=== PATIENT | female | born 1965 | race Hispanic/Latino ===

== ENCOUNTER 2018-08-30 06:26 | Day surgery (SDC) | payer OTHER ==
--- NOTE | 2018-08-26 10:26 | RAD REPORT ---
EXAM DESCRIPTION: Lion Bella (2 Views)08/26/2018 10:11 am CLINICAL HISTORY: Preop for hand surgery COMPARISON: January 2018 FINDINGS: The lungs appear clear of acute infiltrate. Area of scarring is present within the left l marifer base. The heart is normal size IMPRESSION: No acute abnormalities displayed
[2018-08-26 10:43] LABS: Absolute Lymphocytes (CBC) 3.2 K/uL (0.7-4.9); Absolute Monocytes 0.7 K/uL (0.1-1.3); Eosinophils % 1.4 % (0-4.4); Hematocrit 48.2 % (36.0-45.0); MCH 31.7 pg (27.0-35.0); MCV 94.6 fL (80-100); MPV 9.2 fL (7.6-11.3); Monocytes % 7.3 % (3.3-12.3); RBC Red Blood Cell Count 5.09 M/uL (3.86-4.86)
[2018-08-26 10:51] LABS: BUN Blood Urea Nitrogen 10 mg/dL (7-18); Bicarbonate 32 mmol/L (21-32); Glucose Level 94 mg/dL (74-106); Potassium 3.8 mmol/L (3.5-5.1); Sodium Level 141 mmol/L (136-145)
[2018-08-26 11:07] LABS: Urine Appearance CLEAR; Urine Bilirubin NEGATIVE (NEG); Urine Blood NEGATIVE (NEG); Urine Color YELLOW; Urine Glucose NEGATIVE (NEG); Urine Protein 1+ (NEG); Urine Urobilinogen 0.2 mg/dL (0.2-1.0); Urine pH 5.5 (5.0-7.0)
[2018-08-26 11:19] LABS: Urine Microscopic Reflex ORDER UMIC
[2018-08-26 11:20] LABS: Urine Bacteria <20 /HPF (<20); Urine RBC <5 /HPF (NONE SEEN)
[2018-08-26 11:21] LABS: Urine Culture Reflex Order NOT NEEDED
--- NOTE | 2018-08-26 13:46 | EKG ---
Test Date: 2018-08-26 Test Time: 10:05:17 Time Checker: DWAIN MEASUREMENT RESULTS: Intervals: Rate: 68 MD: 166 QRSD: 78 QT: 428 QTc: 455 [place]: P: 23 MD: 166 QRS: 12 T: 23 INTERPRETIVE STATEMENTS: Normal sinus rhythm Normal ECG Compared to ECG 09/21/2017 15:02:08 No significant changes Electronically Signed On 08-26-18 13:45:15 CDT by Jin Mendenhall
[~2018-08-30 06:26] MED LIST: Ringers Lactate 1,000 ML IV ONE
--- OUTSIDE RECORDS SUMMARY | 2018-08-30 06:31 | XMS REPORT | Continuity of Care Document ---
:1965 Author Organization Interface Problems Problem Status Onset Classification Date Comments Source Date Reported LOW BACK PAIN Active 03/30/20 [place] [id number] [place] REFLUX-K21.9 Active 10/18/20 [place] Acid reflux Active Problem 04/07/2018 [facility] [place] Anxiety Active Problem 04/07/2018 [facility] [place] Back ache Active Problem 04/07/2018 [facility] [place] Chest Resolved Problem 04/07/2018 on and off, Ortho pain<sup>1</sup> heart test and are Spine, negative, [place] pt says c/p was due to high dose of norvac, but now on lower dose and no futher c/p; exercise by walking, no stairs Cough<sup>2</sup> Resolved Problem 04/07/2018 2 weeks [facility] ago,, and cough, cold Spine,[facility] , flu; [facility] better now Diabetes Active Problem 04/07/2018 [facility] Ear infection Resolved Problem 04/07/2018 [facility] [place] Gout Active Problem 04/07/2018 [facility] [place] Hyperlipidemia Active Problem 04/07/2018 [facility] Hypertension Active Problem 04/07/2018 [facility] [place] Insomnia Active Problem 04/07/2018 [facility] [place] Irregular heart Resolved Problem 04/07/2018 [facility] beat and [facility]ine,[facility] [place] Leg weakness Active Problem 04/07/2018 [facility] [place] Morbid obesity Active Problem 04/07/2018 [facility] Muscle ache Resolved Problem 04/07/2018 [facility] [place] Osteoarthritis Active Problem 04/07/2018 [facility] 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/2018 Ortho neuropathy and Spine Sleep apnea Active Problem 04/07/2018 [facility] [place] SOB (<span Resolved Problem 04/07/2018 with stairs Ortho ID="[id number]" and >Confirmed</span> Spine, )<sup>3, 4</sup> [facility] Cholesterol Active Problem 11/11/2015 [facility] GASTRO-ESOPHAGEAL Active [facility] REFLUX DISEASE [place] WITHOUT Medications Medication Details Route Status Patient Ordering Order Source Instructions Provider Date Lactated Ringers IV 1,000 mL, No Ortho 1,000 mL Rate: 40 Longer 018 and ml/hr, Active Spine Infuse over: 25 hr, Route: IV, Dosing Weight 141.364 kg, Total Volume: 1,000, Start date: 04/04/18 14:14:00 CDT, Duration: 30 day, Stop date: 05/04/18 14:13:00 CDT, 2.56, m2 Humulin 70/30 60 unit, Active Ortho SUB-Q, 018 and QPM, 0 Spine Refill(s) Humulin 70/30 70 unit, Active Ortho SUB-Q, 018 and QAM, 0 Spine Refill(s) Alprazolam 2 MG Oral 2 mg=1 Active [facility] Tablet [Xanax] tab, PO, 016 [place] TID, 0 Refill(s) Nitroglycerin 0.4 MG 0.4 mg=1 Active [facility] Sublingual Tablet tab, SL, 016 [place] [Nitrostat] Q5Min, PRN Chest Pain, # 100 tab, 0 Refill(s) Promethazine VC with 5 mL, PO, Active [place] Codeine PRN, 0 016 [place] Refill(s) Acetaminophen 325 MG / 1 tab, Active [facility] Hydrocodone Bitartrate PO, BID, 016 [place] 10 MG Oral Tablet 0 [[place] 10/325] Refill(s) tizanidine 4 MG Oral 4 mg=1 Active [facility] Capsule [Zanaflex] cap, PO, 016 [place] BID, # 90 cap, 0 Refill(s) Zolpidem tartrate 5 MG 5 mg=1 Active [facility] Oral Tablet [Ambien] tab, PO, 016 [place] Bedtime, 0 Refill(s) cephalexin 500 mg oral 500 mg=1 Active [place] capsule cap, PO, 016 [place] BID, 0 Refill(s) duloxetine 60 MG 60 mg=1 Active [facility] Enteric Coated Capsule cap, PO, 016 [place] [Cymbalta] Daily, 0 Refill(s) atorvastatin 40 MG 40 mg=1 Active [place] Oral Tablet [Lipitor] tab, PO, 016 [place] Bedtime, 0 Refill(s) promethazine 25 mg 25 mg=1 Active [place] oral tablet tab, PO, 016 [place] PRN, 0 Refill(s) sucralfate 1 g oral 1 gm=1 Active [place] tablet tab, PO, 016 [place] QID-Befor e Meals, 0 Refill(s) Colchicine 0.6 MG Oral 0.6 mg=1 Active [facility] Tablet [Colcrys] tab, PO, 016 [place] PRN, 0 Refill(s) allopurinol 300 mg 300 mg=1 Active [place] oral tablet tab, PO, 016 [place] Daily, 0 Refill(s) Unknown Home Refill(s) Active [place] Medication 0 016 [place] pantoprazole 40 MG 40 mg=1 Active [place] Enteric Coated Tablet tab, PO, 016 [place] [Protonix] Daily, 0 Refill(s) Hydralazine 50 mg=1 Active [place] Hydrochloride 50 MG tab, PO, 016 [place] Oral Tablet TID, 0 Refill(s) lisinopril 10 mg oral 10 mg=1 Active [place] tablet tab, PO, 016 [place] BID, 0 Refill(s) Amlodipine 10 MG Oral 10 mg=1 Active [place] Tablet [Norvasc] tab, PO, 016 [place] Daily, 0 Refill(s) Hydrochlorothiazide 25 mg, Active [place] PO, 016 [place] Daily, 0 Refill(s) metoprolol tartrate 100 mg=1 Active [place] 100 mg oral tablet tab, PO, 016 [place] BID, 0 Refill(s) Allergies, Adverse Reactions, Alerts Substance Category Reaction Severity Reaction Status Date Comments Source type Reported doxycycline Assertion n/v Drug Active [facility] Reglan Assertion n/v Drug Active [facility] Immunizations Immunization Date Given Site Status Last Updated Comments Source Results Order Results Value Reference Date Interpretation Comments Source Name Range Abdomen/P Abdomen/P CT SCAN OF THE ABDOMEN AND PELVIS WITH CONTRAST: - [facility] cuco w cuco - [place] IV IV contrast contrast CT CT DISCUSSION: The study is a preoperative exam for gastric bypass surgery. Read by: Genaro Amin MD Dictated Date/time: 10/24/15 14:35 Electronically Signed by: Genaro Amin MD 10/24/15 14:49 FINAL REPORT Streak artifact which is a consequence of the patient's body touching the CT gantry somewhat limits evaluation. No older studies available for comparison. CT SCAN OF THE ABDOMEN: Axial images through the abdomen are obtained during IV and following oral contrast administration. Previous cholecystectomy. The liver is mildly enlarged and of diffusely diminished attenuation. 4.4 cm lobulated cyst arising from the upper pole of left kidney. 1.5 cm irregular area of fatty attenuati on in the uncinate process of the pancreatic head most consistent with focal fatty replacement or lipoma. No abnormalities identified in the spleen, biliary system, right kidney, or adrenal glands. No adenopathy or abnormal fluid collections. Minimal aortic and visceral arterial calcifications. Several surgical clips in the zepeda of the gastric fundus. Stomach is incompletely distended and otherwi se suboptimally evaluated. Diverticula scattered throughout the colon. No significant findings in the visualized lung parenchyma. Degenerative changes in the spine. CT SCAN OF THE PELVIS: Axial images through the pelvis are obtained following oral and IV contrast. No adenopathy or abnormal fluid collections. Iliac artery calcifications. Surgical clips along the medial aspect of the cecum are likely related to previous appendectomy. 2 cm left ovarian cyst. Diverti cula scattered in the descending and sigmoid colon. No bladder or obvious uterine abnormalities. Degenerative changes in the lumbosacral spine. Possible bilateral L5 spondylolysis. IMPRESSION: 1. Status post cholecystectomy. 2. Mild hepatomegaly with associated diffuse fatty infiltration. 3. Colonic diverticulosis. 4. Arterial vascular calcifications. Please correlate with risk factors. SL: 14 Vital Signs Vital Sign Value Date Comments Source Systolic (mm Hg) 118 04/04/2018 [facility] Diastolic (mm Hg) 73 04/04/2018 [facility] Respitory Rate 16 04/04/2018 [facility] Systolic (mm Hg) 108 04/04/2018 [facility] Diastolic (mm Hg) 86 04/04/2018 [facility] Respitory Rate 16 04/04/2018 [facility] Systolic (mm Hg) 135 04/04/2018 [facility] Diastolic (mm Hg) 79 04/04/2018 [facility] Respitory Rate 19 04/04/2018 [facility] Weight 141.364 04/04/2018 [facility] BMI Calculated 55.21 04/04/2018 [facility] Height 160.02 cm 03/30/2018 [facility] Respitory Rate 16 03/21/2018 [facility] Systolic (mm Hg) 107 03/21/2018 [facility] Diastolic (mm Hg) 67 03/21/2018 [facility] Respitory Rate 18 03/21/2018 [facility] Systolic (mm Hg) 133 03/21/2018 [facility] Diastolic (mm Hg) 74 03/21/2018 [facility] Systolic (mm Hg) 118 03/21/2018 [facility] Diastolic (mm Hg) 74 03/21/2018 [facility] Respitory Rate 16 03/21/2018 [facility] Height 160.02 cm 2018 [facility] Weight 138.182 2018 [facility] BMI Calculated 53.96 2018 [facility] Weight 144.682 11/07/2015 [facility] BMI Calculated 56.5 11/07/2015 [facility] Height 160.02 cm 11/07/2015 [facility] Encounters Location Location Encounter Encounter Reason Attending ADM DC Status Source Details Type Number For Provider Date Date Visit [facility] Outpt Diag [id number] Sheilendra 10/24 10/25 [facility] [place] [facility] Bedded [id number] Sheilendra 11/08 11/08 [facility] [place] [facility] [place] [facility] [id number] Kimberly Ng 03/21 03/22 [facility] [place] [facility] [id number] IMANI HOLLEY 03/30 [facility] [id number] Kimberly Ng 04/04 04/05 [facility] [place] [facility] Outpatient [id number] IMANI HOLLEY 04/26 Active [facility] [place] Outpatient [id number] [facility] 07/26 Active [facility] [place] Procedures Procedure Code Date Perfomer Comments Source Sleeve resection of [id number] 09/01/2017 Ortho stomach and Spine Laparoscopic [id number] 11/01/2013 removed lap [place] adjustable gastric band, due to [place] banding<sup>1</sup> n/v; Removal of gastric [id number] 11/01/2013 Ortho band and Spine Abdominal [id number] 11/01/2011 Ortho hysterectomy and Spine Abdominal [id number] 11/01/2010 [place] hysterectomy [place] Laparoscopic [id number] 11/01/2010 [place] adjustable gastric [place] banding Laparoscopic [id number] 11/01/2010 Ortho adjustable gastric and Spine banding Appendectomy [id number] 11/01/2009 [facility] Cholecystectomy [id number] 11/01/2009 [facility] Knee joint operation [id number] 11/01/2006 [facility] Shoulder joint [id number] 11/01/2006 Ortho operations and Spine Appendectomy [id number] 11/01/2006 [place] Cholecystectomy [id number] 11/01/2006 [place] Knee joint operation [id number] 11/01/2006 [place] Shoulder joint [id number] 11/01/2006 [place] section [id number] 11/01/1984 [facility] section [id number] 11/01/1984 [facility]
[2018-08-30] MEDS ORDERED: NA CHLORIDE 0.9% 1,000 ML ONE (06:47)
[2018-08-30] MEDS ORDERED: CEFAZOLIN/SWI 1gm 1 GM/10 ML SYR ONE (06:47)
[2018-08-30] MEDS ORDERED: MIDAZOLAM HCL 2 MG/2 ML INJ ONE (07:18)
[2018-08-30] MEDS ORDERED: FENTANYL CITR 100 MCG/2 ML ONE (07:18)
[2018-08-30] MEDS ORDERED: PROPOFOL 200 MG/20 ML VIAL IV ONE (07:18)
[2018-08-30] MEDS ORDERED: LIDOCAINE 1% MPF 5 ML VIAL ONE (07:19)
[2018-08-30] MEDS ORDERED: KETOROLAC 30 MG/ML INJ ONE (08:00)
[2018-08-30] MEDS: BUPIVACAINE 0.25% PF 10 ML VIAL ONE ×2 (08:03→08:17)
[2018-08-30] MEDS: DEPO-MEDROL 40 MG/ML IM ONE ×2 (08:03→08:17)
[2018-08-30] MEDS ORDERED: ONDANSETRON HCL 40 MG/20 ML VIAL ONE (08:09)
--- NOTE | 2018-08-30 08:34 | P.BOP ---
Preoperative diagnosis: RIGHT CARPAL TUNNEL SYNDROME with CONSTANT NUMBNESS Postoperative diagnosis: SAME Primary procedure: RIGHT WRIST CARPAL TUNNEL RELEASE Wharf Operator: Carlos Jhaveri Estimated blood loss: < 5mL Specimen: NONE Findings: HYPERTROPHIC SYNOVITIS Anesthesia: General Complications: None Fluids & blood products: INJ 0.25%MARCAINE PLAIN 3 mL; 40 mg DEPO-MEDROL 1 mL Transferred to: Recovery Room Condition: Good
[2018-08-30] MEDS: MEPERIDINE HCL 50 MG/ML AMP ONE ×2 (08:44→08:50)
[2018-08-30] MEDS ORDERED: HYDROCODONE/APAP 5/325 MG TAB ONE (09:31)
[2018-08-30 09:43] VITALS: TEMP 97.1; O2SAT 93
[2018-08-30 10:36] VITALS: BP 115/72
--- NOTE | 2018-08-30 18:39 | OP ---
Date of Procedure: 08/30/2018 Surgeon: Carlos Jhaveri MD Pcu Rn: Dr. Carlos Jhaveri. Preoperative Diagnoses: Right carpal tunnel syndrome with constant numbness and paresthesias. Postoperative Diagnoses: Right carpal tunnel syndrome with constant numbness and paresthesias. Primary Procedure: Right wrist carpal tunnel release. Indications: This 53-year-old female has had persistent paresthesias developed in the right median n erve distribution. She has elected to proceed with carpal tunnel release after discussion of risks a nd benefits with all questions answered. Procedure In Detail: The patient was taken to the operating room and given a general anesthesia. e was placed with the right upper extremity on the armboard in a supine position. The time-out was c alled, all pertinent facts were discussed and agreed upon. It was agreed upon to proceed with the pl anned operative procedure. The tourniquet in place on the proximal right upper extremity close to th e axilla was inflated to 250 mmHg after exsanguination with an Esmarch bandage. The incision marking was made and the incision was made alongside the thenar crease just ulnar to it to the flexion creas e of the wrist were it was angled in a slightly ulnar direction. The incision was carried sharply th rough skin and subcutaneous tissue. The carpal ligament was exposed. The carpal ligament was divide d longitudinally in a 0.5 cm length at its mid portion. A hemostat was passed underneath the carpal ligament and a 15-blade was used to cut down on the hemostat to its distal margin. The hemostat was reversed to go toward the proximal margin of the carpal ligament, and the ligament was divided with t he 15-blade, cutting down onto the hemostat. This allowed freedom from compression for the carpal co ntents. No masses could be palpated. There were no cysts. The hypertrophic synovial tissue was mil d to moderate. The incision was then irrigated. Hemostat was used with Bovie coagulation to coagula te small bleeders. Estimated blood loss for this procedure was less than 5 mL, actually virtually no ne. The 1 mL of Depo-Medrol plain 40 mg was instilled into the proximal aspect of the wrist incision . The closure was affected with 3 interrupted sutures that can function as stay sutures if necessary and a running horizontal mattress stitch. The closure was covered with Xeroform gauze and 4x4 gauze . A dorsal fiberglass splint was applied after soft roll was used to wrap and control the bandage. The Abhinav wrap was used around the splint. The patient tolerated this procedure well and was taken to the recovery room in good condition. Three milliliters of 0.25% Marcaine plain were injected around the incision margins prior to bandage application. JUSTYNA/LAUREL Voice ID: [id number] Report ID: [id number]
== END 2018-08-30 10:11 | disposition home or self-care (01) ==
LOC: OR 06:26
PROVIDERS: ATTEND Orthopaedic Surgery
PROC: 01N50ZZ Release Median Nerve, Open Approach (ICD-10-PCS; principal; 2018-08-30 07:30)
DX: G56.01 Carpal tunnel syndrome, right upper limb (principal); M06.9 Rheumatoid arthritis, unspecified; E11.9 Type 2 diabetes mellitus without complications; I10 Essential (primary) hypertension; G47.33 Obstructive sleep apnea (adult) (pediatric); E66.01 Morbid (severe) obesity due to excess calories; Z68.43 Body mass index [BMI] 50.0-59.9, adult; Z87.891 Personal history of nicotine dependence; Z83.3 Family history of diabetes mellitus; Z82.49 Family history of ischemic heart disease and other diseases of the circulatory system
CPT/HCPCS: 36415; 64721; 71046; 80048; 82962 ×2; 83036; 85025; 93005; J0690; J1030; J2175; J2405; J3010; J7030; 81003; 81015; J2250; J2704

== ENCOUNTER 2018-11-06 08:16 | Emergency (ER) | payer OTHER ==
--- OUTSIDE RECORDS SUMMARY | 2018-11-06 08:19 | XMS REPORT | Continuity of Care Document ---
:1965 Author Organization Interface Problems Problem Status Onset Classification Date Comments Source Date Reported LOW BACK PAIN Active 03/30/20 [place] [id number] [place] REFLUX-K21.9 Active 10/18/20 [place] Acid reflux Active Problem 04/07/2018 [facility] [place] Anxiety Active Problem 04/07/2018 [facility] [place] Back ache Active Problem 04/07/2018 [facility] [place] Chest Resolved Problem 04/07/2018 on and off, Ortho pain<sup>1</sup> heart test and are Spine, negative, [place] pt says c/p was due to high dose of norvac, but now on lower dose and no futher c/p; exercise by walking, no stairs Cough<sup>2</sup> Resolved Problem 04/07/2018 2 weeks [facility] ago,, and cough, cold Spine,[facility] , flu; [place] better now Diabetes Active Problem 04/07/2018 [facility] Ear infection Resolved Problem 04/07/2018 [facility] [place] Gout Active Problem 04/07/2018 [facility] [place] Hyperlipidemia Active Problem 04/07/2018 [facility] Hypertension Active Problem 04/07/2018 [facility] [place] Insomnia Active Problem 04/07/2018 [facility] [place] Irregular heart Resolved Problem 04/07/2018 [facility] beat [facility] Spine,[facility] [place] Leg weakness Active Problem 04/07/2018 [facility] [place] Morbid obesity Active Problem 04/07/2018 [facility] Muscle ache Resolved Problem 04/07/2018 [facility] [place] Osteoarthritis Active Problem 04/07/2018 [facility] 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/2018 Ortho neuropathy and Spine Sleep apnea Active Problem 04/07/2018 [facility] [place] SOB (<span Resolved Problem 04/07/2018 with stairs Ortho ID="[id number]" and >Confirmed</span> Spine, )<sup>3, 4</sup> [place] Cholesterol Active Problem 11/11/2015 [place] GASTRO-ESOPHAGEAL Active [place] REFLUX DISEASE [place] WITHOUT [...] 016 [place] 10 MG Oral Tablet 0 [[place] 10/325] Refill(s) tizanidine 4 MG Oral 4 [...] CONTRAST: - [facility] cuco w cuco - [place] IV IV contrast contrast CT CT DISCUSSION: [...] 2018 [facility] Weight 144.682 11/07/2015 [place] BMI Calculated 56.5 11/07/2015 [place] Height 160.02 cm 11/07/2015 [place] Encounters Location Location Encounter Encounter Reason Attending ADM DC Status Source Details Type Number For Provider Date Date Visit [facility] Outpt Diag [id number] Sheilendra 10/24 10/25 [facility] [place] [facility] Bedded [id number] Sheilendra 11/08 11/08 [facility] [place] [facility] [place] [facility] [id number] Kimberly Ng 03/21 03/22 [facility] [place] [facility] [id number] IMANI HOLLEY 03/[address] [facility] Surgery [id number] Kimberly Ng 04/04 04/05 [facility] [place] [facility] Outpatient [id number] IMANI HOLLEY 04/26 Active [facility] [place] Outpatient [id number] [facility] 07/26 Active [facility] [place] Procedures Procedure Code Date Perfomer Comments Source Sleeve resection of [id number] 09/01/2017 Ortho stomach and Spine Laparoscopic [id number] 11/01/2013 removed lap [place] adjustable gastric band, due to [place] banding<sup>1</sup> n/v; Removal of gastric [id number] 11/01/2013 Ortho band and Spine Abdominal [id number] 11/01/2011 Ortho hysterectomy and Spine Abdominal [id number] 11/01/2010 [place] hysterectomy [place] Laparoscopic [id number] 11/01/2010 [place] adjustable gastric [place] banding Laparoscopic [id number] 11/01/2010 Ortho adjustable gastric and Spine banding Appendectomy [id number] 11/01/2009 [facility] Cholecystectomy [id number] 11/01/2009 [facility] Knee joint operation [id number] 11/01/2006 [facility] Shoulder joint [id number] 11/01/2006 Orth[facility] operations and Spine Appendectomy [id number] 11/01/2006 [place] Cholecystectomy [id number] 11/01/2006 [place] Knee joint operation [id number] 11/01/2006 [place] Shoulder joint [id number] 11/01/2006 [place] section [id number] 11/01/1984 [place] section [id number] 11/01/1984 [facility]
--- OUTSIDE RECORDS SUMMARY | 2018-11-06 08:20 | XMS REPORT ---
:1965 Author Organization [facility] Address [address] [place] [address] Care Team Providers Name Role Phone Unavailable Unavailable Unavailable Problems This patient has no known problems. Allergies, Adverse Reactions, Alerts This patient has no known allergies or adverse reactions. Medications This patient has no known medications.
--- NOTE | 2018-11-06 09:13 | RAD REPORT ---
EXAM DESCRIPTION: RAD - Lumbar Spine 3 Views - 11/06/2018 8:53 am CLINICAL HISTORY: PAIN Radiculopathy COMPARISON: Lumbar Spine 3 Views dated 02/15/2018; LSPINE WITH BENDING VIEWS dated 02/14/2014 FINDINGS: Vertebral body heights appear maintained. No compression fracture noted. Disc thinning is present at L3-4 and L4-5 with small endplate osteophyte. Cholecystectomy clips. IMPRESSION: No acute lumbar spine finding.
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
[2018-11-06 09:40] VITALS: TEMP 98.2
[2018-11-06 09:41] VITALS: BP 132/68; O2SAT 96
== END 2018-11-06 09:36 | disposition home or self-care (01) ==
LOC: ER 08:16
DX: M54.5 Low back pain (principal); V49.40XA Driver injured in collision with unspecified motor vehicles in traffic accident, initial encounter; E11.9 Type 2 diabetes mellitus without complications; J45.909 Unspecified asthma, uncomplicated; I10 Essential (primary) hypertension; Z79.84 Long term (current) use of oral hypoglycemic drugs; Z79.899 Other long term (current) drug therapy
CPT/HCPCS: 72100; 99283

== ENCOUNTER 2019-04-27 12:35 | Emergency (ER) | payer OTHER ==
--- OUTSIDE RECORDS SUMMARY | 2019-04-27 12:39 | XMS REPORT ---
:1965 [facility] Address [address] [place] [address] Care Team Providers Name Role Phone Unavailable Unavailable Unavailable Problems This patient has no known problems. Allergies, Adverse Reactions, Alerts This patient has no known allergies or adverse reactions. Medications This patient has no known medications.
--- OUTSIDE RECORDS SUMMARY | 2019-04-27 12:39 | XMS REPORT | Continuity of Care Document ---
:1965 Author Organization [facility] [facility] Care Team Providers Name Role Phone [facility] Unavailable Unavailable Problems Problem Status Onset Classification Date Comments Source Date Reported LOW BACK PAIN Active 03/30/20 [facility] 18 [place] [id number] Active 10/18/20 [place] Acid reflux Active Problem 04/07/2018 [facility] [place] Anxiety Active Problem 04/07/2018 [facility] [place] Back ache Active Problem 04/07/2018 [facility] [place] Chest pain1 Resolved Problem 04/07/2018 on and off, Orth[facility] heart test and are [facility] negative, [place] pt says c/p was due to high dose of norvac, but now on lower dose and no futher c/p; exercise by walking, no stairs Cough2 Resolved Problem 04/07/2018 2 weeks [facility] ago,, and cough, cold [facility] , flu; [place] better now Diabetes Active Problem 04/07/2018 [facility] Ear infection Resolved Problem 04/07/2018 [facility] [place] Gout Active Problem 04/07/2018 [facility] [place] Hyperlipidemia Active Problem 04/07/2018 [facility] Hypertension Active Problem 04/07/2018 [facility] [place] Insomnia Active Problem 04/07/2018 [facility] [place] Irregular heart Resolved Problem 04/07/2018 [facility] beat [facility] [place] Leg weakness Active Problem 04/07/2018 [facility] [place] Morbid obesity Active Problem 04/07/2018 [facility] Muscle ache Resolved Problem 04/07/2018 [facility] [place] Osteoarthritis Active Problem 04/07/2018 [facility] 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/2018 [facility] neuropathy and Spine Sleep apnea Active Problem 04/07/2018 [facility] [place] SOB (Confirmed)3, Resolved Problem 04/07/2018 pt says she wakes up sob [facility] 4 with stairs and [facility] [place] Cholesterol Active Problem 11/11/2015 [place] GASTRO-ESOPHAGEAL Active [place] REFLUX DISEASE [place] WITHOUT [...] 016 [place] 10 MG Oral Tablet 0 [[place] 10/325] Refill(s) tizanidine 4 MG Oral 4 [...] Active [facility] Immunizations No Data Provided for This Section Results No Data Provided for This Section Pathology Reports No Data Provided for This Section Diagnostic Reports Report Value Date Source Abdomen/Pelvis w IV CT SCAN OF THE ABDOMEN AND PELVIS WITH CONTRAST: [address] [address] DISCUSSION: The study is a preoperative exam for gastric bypass surgery. Streak artifact which is a consequence of [...] Please correlate with risk factors. SL: 14 Consultation Notes No Data Provided for This Section Discharge Summaries No Data Provided for This Section History and Physicals No Data Provided for This Section Vital Signs Vital Sign Value Date Comments [...] 2018 [facility] Weight 144.682 11/07/2015 [place] BMI Calculated 56.5 11/07/2015 [place] Height 160.02 cm 11/07/2015 [place] Encounters Location Location Encounter Encounter Reason Attending ADM DC Status Source Details Type Number For Provider Date Date Visit [facility] Outpt Diag [id number] Sheilendra 10/24 10/25 [facility] Bedded [id number] Sheilendra 11/08 11/08 [place] [facility] [place] [facility] Surgery [id number] Kimberly Ng 03/21 03/22 [facility] Outpatient [id number] IMANI HOLLEY 03/30 [facility] [id number] Kimberly Ng 04/04 04/05 [facility] [place] [facility] Out[facility] [id number] IMANI HOLLEY 04/26 [facility] [place] [facility] [id number] IMANI HOLLEY 07/26 [facility] [place] [facility] [id number] IMANI HOLLEY 12/09 Active [facility] [place] Procedures Procedure Code Date Perfomer Comments Source Sleeve resection of [id number] 09/01/2017 [facility] Laparoscopic [id number] 11/01/2013 removed lap [place] adjustable gastric band, due to [place] banding<sup>1</sup> n/v; Removal of gastric [id number] 11/01/2013 [facility] band [facility] Sp[facility] Abdominal [id number] 11/01/2011 [facility] hysterectomy [facility] Sp[facility] Abdominal [id number] 11/01/2010 [facility] hysterectomy [place] Laparoscopic [id number] 11/01/2010 [facility] [place] adjustable gastric [place] banding Laparoscopic [id number] 11/01/2010 [facility] adjustable gastric and Spine banding Appendectomy [id number] 11/01/2009 [facility] Cholecystectomy [id number] 11/01/2009 [facility] Knee joint operation [id number] 11/01/2006 [facility] Shoulder joint [id number] 11/01/2006 [facility] Spine Appendectomy [id number] 11/01/2006 [facility] [place] Cholecystectomy [id number] 11/01/2006 [facility] [place] Knee joint operation [id number] 11/01/2006 [facility] [place] Shoulder joint [id number] 11/01/2006 [facility] [place] section [id number] 11/01/1984 [facility] [place] section [id number] 11/01/1984 [facility] Assessment and Plan No Data Provided for This Section Plan of Care No Data Provided for This Section Social History Social History Date Source Social History TypeResponse 11/07/2015 [facility] Substance Abuse Use: None. Exercise Exercise type: Walking. Employment/School Status: disabled. Alcohol Never, Previous treatment: None. Smoking Status Former smoker; Type: Cigarettes; Exposure to Tobacco Smoke None; Cigarette Smoking Last 365 Days No; Reg Smoking Cessation Counseling No1 entered on: 04/04/18 11/2 pack a day for 5 years, quit 10 years ago Social History TypeResponse 11/07/2015 [place] Substance Abuse Use: None. Exercise Exercise type: Walking. Employment/School 1 Alcohol Never, Previous treatment: None. Smoking Status Former smoker; Type: Cigarettes; Exposure to Tobacco Smoke None; Cigarette Smoking Last 365 Days No; Reg Smoking Cessation Counseling No2 1not /2 pack a day for 5 years, quit 10 years ago No data available for this 10/25/2015 [facility] [place] section Family History No Data Provided for This Section Advance Directives No Data Provided for This Section Functional Status No Data Provided for This Section
--- NOTE | 2019-04-27 13:26 | RAD REPORT ---
EXAM DESCRIPTION: RAD - Chest Single View - 04/27/2019 1:19 pm CLINICAL HISTORY: Cough, shortness of breath COMPARISON: August 2018 TECHNIQUE: AP portable chest image was obtained 1316 hours . FINDINGS: Large body habitus limits detail on portable imaging. No focal lung parenchymal process se en. No significant failure or volume overload. Stranding in the left lung base is believed to be normal for this patient accentuated by portable gladis hnique and body habitus. Heart and vasculature are normal. No measurable pleural effusion and no pneu mothorax. No acute bony abnormality seen. No acute aortic findings suspected. IMPRESSION: No acute cardiopulmonary process. No significant interval change.
[2019-04-27 13:30] LABS: Absolute Lymphocytes (CBC) 2.3 K/uL (0.7-4.9); Basophils % 0.6 % (0-1.3); Eosinophils % 0.8 % (0-4.4); Hematocrit 49.8 % (36.0-45.0); Lymphocytes % 26.8 % (15.3-44.8); MPV 9.8 fL (7.6-11.3); Monocytes % 7.7 % (3.3-12.3); RBC Red Blood Cell Count 5.32 M/uL (3.86-4.86)
[2019-04-27 13:49] LABS: BUN Blood Urea Nitrogen 15 mg/dL (7-18); Bicarbonate 32 mmol/L (21-32); Glucose Level 97 mg/dL (74-106); Potassium 3.6 mmol/L (3.5-5.1); Sodium Level 139 mmol/L (136-145); Troponin (Emerg Dept Use Only) < 0.02 ng/mL (0.0-0.045)
--- NOTE | 2019-04-27 14:47 | ER ---
Nurse's Notes [facility] Name: Maria De Jesus Acosta Age: 54 yrs Sex: Female : 1965 Arrival Date: 04/27/2019 Time: 12:38 Bed 16 Private MD: Diagnosis: Acute pharyngitis Presentation: 04/27 12:42 Presenting complaint: Patient states: states MD changed her insulin last Wednesday. Pt was wh still using old syringe from previous insulin which is bigger than the new syringe she was supposed to be using. Pt complaining of weakness, nausea and loss appetite since Wednesday. EMS on scene checked BS [id number]. Pt was eating cookies on way to hospital. Transition of care: patient was not received from another setting of care. Onset of symptoms was April 24, 2019. Risk Assessment: Do you want to hurt yourself or someone else? Patient reports no desire to harm self or others. Initial Sepsis Screen: Does the patient meet any 2 criteria? RR > 20 per min. HR > 90 bpm. No. Patient's initial sepsis screen is negative. Does the patient have a suspected source of infection? No. Patient's initial sepsis screen is negative. Care prior to arrival: Medication(s) given: Breathing treatment. 12:42 Method Of Arrival: EMS: [facility] 12:42 Acuity: EMERALD 3 Triage Assessment: 12:47 General: Appears in no apparent distress. General: Behavior is calm, cooperative, wh appropriate for age. Pain: Denies pain. 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/A - Historical: - Allergies: 14:09 Doxycycline; 14:09 metoclopramide HCl; 14:09 orange juice; - Home Meds: 14:09 metoprolol tartrate 100 mg Oral tab 1 tab 2 times per day [Active]; alprazolam 2 mg wh oral tab 3 times per day [Active]; lisinopril 40 mg oral tab twice a day [Active]; atorvastatin 40 mg Oral tab 1 tab once daily [Active]; amlodipine 10 mg tab 1 tab once daily [Active]; hydralazine 100 mg oral tab [Active]; furosemide 20 mg Oral tab 1 tab once daily [Active]; metformin 1,000 mg oral tab 2 times per day [Active]; Hydrochlorothiazide Oral once daily [Active]; gabapentin 600 mg oral tab 1 tab 3 times per day [Active]; Norvasc Oral once daily [Active]; Zoloft 25 mg Oral tab 1 tab once daily [Active]; Ambien 10 mg oral tab [Active]; [place] 5-325 mg Oral tab 1 tab every 12 hours [Active]; Insulin: Novolin R Sub-Q [Active]; - PMHx: 14:09 Asthma; Diabetes - NIDDM; Hypertension; COPD; CHF; wh - Immunization history:: Adult Immunizations up to date. - Ebola Screening: : Patient negative for fever greater than or equal to 101.5 degrees Fahrenheit, and additional compatible Ebola Virus Disease symptoms Patient denies exposure to infectious person. - Social history:: Smoking status: Patient/guardian denies using tobacco. Screenin:46 Abuse screen: Denies threats or abuse. Denies injuries from another. Nutritional wh screening: No deficits noted. Tuberculosis screening: No symptoms or risk factors identified. Fall Risk None identified. Assessment: 13:34 General: Appears in no apparent distress. Behavior is calm, cooperative, appropriate wh for age. Pain: Denies pain. Neuro: Level of Consciousness is awake, alert, obeys commands, Oriented to person, place, time, situation, Station Repairer are equal bilaterally. Cardiovascular: Heart tones S1 S2 Capillary refill < 3 seconds. Respiratory: Airway is patent Respiratory effort is even, unlabored, Respiratory pattern is regular, symmetrical. GI: Abdomen is round non-distended, Abd is soft and non tender. : No signs and/or symptoms were reported regarding the genitourinary system. EENT: No signs and/or symptoms were reported regarding the EENT system. Derm: Skin is intact, is healthy with good turgor, Skin is pink, warm \T\ dry. normal. Musculoskeletal: Range of motion: intact in all extremities. Vital Signs: 12:39 BP 125 / 94; Pulse 100; Resp 23; Temp 98.7; Pulse Ox 95% on R/A; aj 13:35 BP 113 / 71; Pulse 89; Resp 18; Pulse Ox 94% on 2 lpm NC; wh 14:35 BP 129 / 79; Pulse 86; Resp 18; Pulse Ox 94% on R/A; wh ED Course: 12:38 Patient arrived in ED. iw 12:42 Billy Ahn is Primary Nurse. 12:43 Mason Joe MD is Attending Physician. 12:44 EKG done, by certified performance technologist. reviewed by Mason Joe MD. 3 12:46 Triage completed. 12:47 Arm band placed on right wrist. 12:47 Patient has correct armband on for positive identification. Bed in low position. Call light in reach. Side rails up X 1. monitor worker on. Pulse ox on. NIBP on. 13:18 X-ray completed. Portable x-ray completed in exam room. Patient tolerated procedure well. 13:24 XRAY Chest (1 view) In Process Unspecified. EDUT 15:22 No provider procedures requiring assistance completed. IV discontinued, intact, bleeding controlled, No redness/swelling at site. Administered Medications: No medications were administered Point of Care Testing: Blood Glucose: 12:48 Blood Glucose: 99 mg/dL; Ranges: Outcome: 14:46 Discharge ordered by MD. 15:22 Discharged to home ambulatory. 15:22 Condition: good 15:22 Discharge instructions given to patient, family, Instructed on discharge instructions, follow up and referral plans. POC Bronchitis Demonstrated understanding of instructions, follow-up care, medications, POC hypoglycemia 15:24 Patient left the ED. Signatures: Dispatcher [employer] Pham Banegas RN RN aj Williams, Irene, RN RN iw Warren, Shannon Billy Ahn Mason Joe MD MD Kelly Das 3 Corrections: (The following items were deleted from the chart) 13:44 12:42 Initial Sepsis Screen: Does the patient meet any 2 criteria? No. Patient's initial sepsis screen is negative. Does the patient have a suspected source of infection? No. Patient's initial sepsis screen is negative.
--- NOTE | 2019-04-27 14:47 | EDPHYS ---
Physician Documentation [facility] Name: Maria De Jesus Acosta Age: 54 yrs Sex: Female : 1965 Arrival Date: 04/27/2019 Time: 12:38 Bed 16 Private MD: ED Physician Mason Joe HPI: 04/27 14:41 This 54 yrs old Female presents to ER via EMS with unknown complaint. gs 14:41 The patient presents with sore throat. Onset: The symptoms/episode began/occurred 3 gs day(s) ago. Severity of symptoms: At their worst the symptoms were moderate, in the emergency department the symptoms are unchanged. Modifying factors: The symptoms are alleviated by nothing, the symptoms are aggravated by swallowing, Patient's oral intake status: good. Associated signs and symptoms: Pertinent positives: flu-like symptoms, malaise. The patient has experienced similar episodes in the past, a few times. had issue with insulin syringe change no overdose no hypoglycemia. 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 [facility] N/A - Historical: - Allergies: 14:09 Doxycycline; 14:09 metoclopramide HCl; 14:09 orange juice; - Home Meds: 14:09 metoprolol tartrate 100 mg Oral tab 1 tab 2 times per day [Active]; alprazolam 2 mg wh oral tab 3 times per day [Active]; lisinopril 40 mg oral tab twice a day [Active]; atorvastatin 40 mg Oral tab 1 tab once daily [Active]; amlodipine 10 mg tab 1 tab once daily [Active]; hydralazine 100 mg oral tab [Active]; furosemide 20 mg Oral tab 1 tab once daily [Active]; metformin 1,000 mg oral tab 2 times per day [Active]; Hydrochlorothiazide Oral once daily [Active]; gabapentin 600 mg oral tab 1 tab 3 times per day [Active]; Norvasc Oral once daily [Active]; Zoloft 25 mg Oral tab 1 tab once daily [Active]; Ambien 10 mg oral tab [Active]; [place] 5-325 mg Oral tab 1 tab every 12 hours [Active]; Insulin: Novolin R Sub-Q [Active]; - PMHx: 14:09 Asthma; Diabetes - NIDDM; Hypertension; COPD; CHF; wh - Immunization history:: Adult Immunizations up to date. - Ebola Screening: : Patient negative for fever greater than or equal to 101.5 degrees Fahrenheit, and additional compatible Ebola Virus Disease symptoms Patient denies exposure to infectious person. - Social history:: Smoking status: Patient/guardian denies using tobacco. ROS: 14:41 All other systems are negative. gs Exam: 14:41 Head/Face: Normocephalic, atraumatic. Eyes: Pupils equal round and reactive to light, gs extra-ocular motions intact. Lids and lashes normal. Conjunctiva and sclera are non-icteric and not injected. Cornea within normal limits. Periorbital areas with no swelling, redness, or edema. Neck: Trachea midline, no thyromegaly or masses palpated, and no cervical lymphadenopathy. Supple, full range of motion without nuchal rigidity, or vertebral point tenderness. No Meningismus. Chest/axilla: Normal chest wall appearance and motion. Nontender with no deformity. No lesions are appreciated. Cardiovascular: Regular rate and rhythm with a normal S1 and S2. No gallops, murmurs, or rubs. Normal PMI, no JVD. No pulse deficits. Respiratory: Lungs have equal breath sounds bilaterally, clear to auscultation and percussion. No rales, rhonchi or wheezes noted. No increased work of breathing, no retractions or nasal flaring. Abdomen/GI: Soft, non-tender, with normal bowel sounds. No distension or tympany. No guarding or rebound. No evidence of tenderness throughout. Back: No spinal tenderness. No costovertebral tenderness. Full range of motion. Skin: Warm, dry with normal turgor. Normal color with no rashes, no lesions, and no evidence of cellulitis. MS/ Extremity: Pulses equal, no cyanosis. Neurovascular intact. Full, normal range of motion. Neuro: Awake and alert, GCS 15, oriented to person, place, time, and situation. Cranial nerves II-XII grossly intact. Motor strength 5/5 in all extremities. Sensory grossly intact. Cerebellar exam normal. Normal gait. 14:41 Constitutional: The patient appears alert, awake. 14:41 ENT: Posterior pharynx: erythema, that is moderate. Vital Signs: 12:39 BP 125 / 94; Pulse 100; Resp 23; Temp 98.7; Pulse Ox 95% on R/A; aj 13:35 BP 113 / 71; Pulse 89; Resp 18; Pulse Ox 94% on 2 lpm NC; wh 14:35 BP 129 / 79; Pulse 86; Resp 18; Pulse Ox 94% on R/A; MDM: 12:55 Patient medically screened. 14:41 Differential diagnosis: gastroesophageal reflux disease, group A strep tonsillitis, gs viral syndrome. Data reviewed: vital signs, nurses notes. Counseling: I had a detailed discussion with the patient and/or guardian regarding: the historical points, exam findings, and any diagnostic results supporting the discharge/admit diagnosis, lab results, the need for outpatient follow up. Response to treatment: the patient's symptoms have markedly improved after treatment. 14:47 Data reviewed: lab test result(s), EKG, radiologic studies. 04/27 13:03 Order name: Basic Metabolic Panel; Complete Time: 14:34 04/27 13:03 Order name: CBC with Diff; Complete Time: 13:47 04/27 13:03 Order name: Troponin (emerg Dept Use Only); Complete Time: 14:34 04/27 13:03 Order name: XRAY Chest (1 view); Complete Time: 13:47 04/27 13:03 Order name: Strep; Complete Time: 14:34 04/27 13:58 Order name: Throat Culture [facility] 04/27 13:03 Order name: EKG; Complete Time: 13:04 04/27 13:03 Order name: Cardiac monitoring; Complete Time: 13:19 04/27 13:03 Order name: EKG - Nurse/Tech; Complete Time: 13:19 04/27 13:03 Order name: IV Saline Lock; Complete Time: 13:19 04/27 13:03 Order name: Labs collected and sent; Complete Time: 13:19 04/27 13:03 Order name: O2 Per Protocol; Complete Time: 13:19 04/27 13:03 Order name: O2 Sat Monitoring; Complete Time: 13:19 Administered Medications: No medications were administered Point of Care Testing: Blood Glucose: 12:48 Blood Glucose: 99 mg/dL; Ranges: Critical Glucose Levels:Adult <50 mg/dl or >400 mg/dl <40 mg/dl or >180 mg/dl Disposition: 04/27/19 14:46 Discharged to Home. Impression: Acute pharyngitis. - Condition is Stable. - Discharge Instructions: Pharyngitis, [id number]. - Medication Reconciliation Form, Thank You Letter, Antibiotic Education, Prescription Opioid Use form. - Follow up: Private Physician; When: 2 - 3 days; Reason: Re-evaluation by your physician. Signatures: Dispatcher [employer] EDNH Billy Ahn Gregory, MD MD gs Corrections: (The following items were deleted from the chart) 15:24 14:46 04/27/2019 14:46 Discharged to Home. Impression: Acute pharyngitis. Condition is wh Stable. Forms are Medication Reconciliation Form, Thank You Letter, Antibiotic Education, Prescription Opioid Use. Follow up: Private Physician; When: 2 - 3 days; Reason: Re-evaluation by your physician. gs
[2019-04-27 15:39] VITALS: TEMP 98.7
[2019-04-27 15:40] VITALS: O2SAT 94
[2019-04-27 15:42] VITALS: BP 129/79
--- NOTE | 2019-04-27 16:02 | EKG ---
Test Date: 2019-04-27 Test Time: 12:40:20 Audio Visual Director: DELORES MEASUREMENT RESULTS: Intervals: Rate: 98 MI: 160 QRSD: 84 QT: 354 QTc: 451 Pierce: P: 55 MI: 160 QRS: 29 T: 77 INTERPRETIVE STATEMENTS: Normal sinus rhythm Cannot rule out Anterior infarct, age undetermined Abnormal ECG Compared to ECG 08/26/2018 10:05:17 Myocardial infarct finding now present Electronically Signed On 04-27-19 16:01:36 CDT by Jin Mendenhall
== END 2019-04-27 15:24 | disposition home or self-care (01) ==
LOC: ER 12:35
DX: J02.9 Acute pharyngitis, unspecified (principal); J45.909 Unspecified asthma, uncomplicated; E11.9 Type 2 diabetes mellitus without complications; I11.0 Hypertensive heart disease with heart failure; I50.9 Heart failure, unspecified; J44.9 Chronic obstructive pulmonary disease, unspecified; Z88.1 Allergy status to other antibiotic agents; Z88.8 Allergy status to other drugs, medicaments and biological substances; Z91.018 Allergy to other foods; Z79.4 Long term (current) use of insulin
CPT/HCPCS: 36415; 71045; 80048; 82962; 84484; 85025; 87070; 87081; 93005; 99284

== ENCOUNTER 2019-08-15 11:49 | Emergency (ER) | payer OTHER ==
[2019-08-15] MEDS ORDERED: HYDRALAZINE HCL 20 MG/ML VIAL ONE (12:49)
[2019-08-15] MEDS ORDERED: cloNIDine HCl 0.1 MG TAB ONE (12:49)
[2019-08-15] MEDS ORDERED: KETOROLAC 30 MG/ML INJ ONE (12:50)
--- NOTE | 2019-08-15 14:09 | ER ---
Nurse's Notes [facility] Name: Maria De Jesus Acosta Age: 54 yrs Sex: Female : 1965 Arrival Date: 08/15/2019 Time: 11:53 Bed 19 Private MD: Diagnosis: HYPERTENSIVE CRISIS;Acute pharyngitis, unspecified Presentation: 08/15 11:55 Presenting complaint: Patient states: i have been having something like the flu for 5 tw2 weeks, i went to my PCP 2 weeks ago, he put me on the blue pill for the flu and it didn't help, my throat hurts, i can hardly swallow, and coughing and my throat hurts so bad i cant take my pills, my dr said he was booked and to come to the ER. Transition of care: patient was not received from another setting of care. Onset of symptoms was August 15, 2019. Risk Assessment: Do you want to hurt yourself or someone else? Patient reports no desire to harm self or others. Initial Sepsis Screen: Does the patient meet any 2 criteria? No. Patient's initial sepsis screen is negative. Does the patient have a suspected source of infection? No. Patient's initial sepsis screen is negative. Care prior to arrival: None. 11:55 Method Of Arrival: Ambulatory tw2 11:55 Acuity: EMERALD 2 tw2 11:56 Note "i havent been able to take any of my medicines". tw2 Triage Assessment: 11:59 General: Appears in no apparent distress. obese, Behavior is calm, cooperative, tw2 appropriate for age. Pain: Complains of pain in uvula, left aspect of posterior pharynx and right aspect of posterior pharynx. EENT: Reports nasal congestion nasal discharge pain when swallowing. 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 - Hysterectomy tw2 Historical: - Allergies: 11:59 Doxycycline; tw2 11:59 metoclopramide HCl; tw2 11:59 orange juice; tw2 - Home Meds: 11:59 gabapentin 600 mg Oral tab 1 tab 3 times per day [Active]; Zoloft 25 mg Oral tab 1 tab tw2 once daily [Active]; furosemide 20 mg Oral tab 1 tab once daily [Active]; amlodipine 10 mg tab 1 tab once daily [Active]; Ambien 10 mg Oral tab [Active]; hydralazine 100 mg Oral tab [Active]; Hydrochlorothiazide Oral once daily [Active]; atorvastatin 40 mg Oral tab 1 tab once daily [Active]; lisinopril 40 mg Oral tab twice a day [Active]; alprazolam 2 mg Oral tab 3 times per day [Active]; Insulin: Novolin R Sub-Q [Active]; metformin 1,000 mg Oral tab 2 times per day [Active]; metoprolol tartrate 100 mg Oral tab 1 tab 2 times per day [Active]; [employer] 5-325 mg Oral tab 1 tab every 12 hours [Active]; Norvasc Oral once daily [Active]; - PMHx: 11:59 Asthma; Diabetes - NIDDM; Hypertension; COPD; CHF; tw2 - PSHx: 11:59 Cholecystectomy; Appendectomy; partial hysterectomy; tw2 - Immunization history:: Adult Immunizations. - Social history:: Smoking status: . - Ebola Screening: : Patient denies travel to an Ebola-affected area in the 21 days before illness onset. Screenin:55 Fall Risk None identified. tw2 12:19 Abuse screen: Denies threats or abuse. Denies injuries from another. Nutritional aj1 screening: No deficits noted. Tuberculosis screening: No symptoms or risk factors identified. 14:15 Fall Risk None identified. aj1 Assessment: 12:19 General: Appears in no apparent distress. uncomfortable, Behavior is calm, cooperative, aj1 appropriate for age. Pain: Complains of pain in right aspect of posterior pharynx and left aspect of posterior pharynx Pain does not radiate. Pain currently is 8 out of 10 on a pain scale. Neuro: Level of Consciousness is awake, alert, obeys commands, Oriented to person, place, time, situation, Speech is normal, Facial symmetry appears normal. Cardiovascular: Heart tones S1 S2 present Patient's skin is warm and dry. Respiratory: Reports cough that is persistent Airway is patent Respiratory effort is even, unlabored, Respiratory pattern is regular, symmetrical, Breath sounds are clear bilaterally. GI: No signs and/or symptoms were reported involving the gastrointestinal system. : No signs and/or symptoms were reported regarding the genitourinary system. EENT: Throat is reddened bilaterally Reports sore throat. Derm: No signs and/or symptoms reported regarding the dermatologic system. Skin is pink, warm \\T\\ dry. normal. Musculoskeletal: No signs and/or symptoms reported regarding the musculoskeletal system. Circulation, motion, and sensation intact. 13:28 Reassessment: Patient appears in no apparent distress at this time. No changes from aj1 previously documented assessment. Patient and/or family updated on plan of care and expected duration. Pain level reassessed. Patient is alert, oriented x 3, equal unlabored respirations, skin warm/dry/pink. 14:14 Reassessment: Patient appears in no apparent distress at this time. No changes from aj1 previously documented assessment. Patient and/or family updated on plan of care and expected duration. Pain level reassessed. Patient is alert, oriented x 3, equal unlabored respirations, skin warm/dry/pink. Vital Signs: 11:57 BP 180 / 105; Pulse 99; Resp 18; Temp 98.1(O); Pulse Ox 97% on R/A; Weight 147.42 kg tw2 (R); Height 5 ft. 3 in. (160.02 cm); Pain 6/10; 13:31 BP 177 / 91; Pulse 82; Resp 18; Pulse Ox 97% on R/A; aj1 14:14 BP 134 / 68; Pulse 81; Resp 18; Pulse Ox 97% on R/A; aj1 11:57 Body Mass Index 57.57 (147.42 kg, 160.02 cm) tw2 ED Course: 11:53 Patient arrived in ED. as 11:57 Triage completed. tw2 11:57 Arm band placed on. tw2 12:00 Strep Sent. tw2 12:00 Flu Sent. tw2 12:05 Waleska Carpio, RN is Primary Nurse. aj1 12:15 Stew Preciado MD is Attending Physician. tw4 12:19 Patient has correct armband on for positive identification. Bed in low position. Call aj1 light in reach. Side rails up X 1. 12:19 No provider procedures requiring assistance completed. aj1 14:14 Patient did not have IV access during this emergency room visit. aj1 Administered Medications: 12:56 Drug: hydrALAZINE 20 mg Route: IM; Site: right deltoid; aj1 12:57 Drug: TORadol 60 mg Route: IM; Site: left deltoid; aj1 12:57 Drug: cloNIDine 0.2 mg Route: PO; aj1 Outcome: 14:08 Discharge ordered by . tw4 14:15 Discharged to home ambulatory. aj1 14:15 Condition: good 14:15 Discharge instructions given to patient, Instructed on discharge instructions, follow up and referral plans. medication usage, Demonstrated understanding of instructions, follow-up care, medications, Prescriptions given X 1. 14:15 Patient left the ED. aj1 Signatures: Waleska Carpio RN RN aj1 Zohreh Pugh Tara, RN RN tw2 Stew Preciado MD MD tw4 Corrections: (The following items were deleted from the chart) 12:02 11:55 Acuity: EMERALD 3 tw2 tw2
--- NOTE | 2019-08-15 14:09 | EDPHYS ---
Physician Documentation [facility] Name: Maria De Jesus Acosta Age: 54 yrs Sex: Female : 1965 Arrival Date: 08/15/2019 Time: 11:53 Bed 19 Private MD: ED Physician Stew Preciado HPI: 08/15 19:54 This 54 yrs old Female presents to ER via Ambulatory with complaints of Sore tw4 Throat, Cough. 19:54 The patient presents with sore throat. The patient describes throat pain as raw, tw4 scratchy. Onset: The symptoms/episode began/occurred today. Severity of symptoms: At their worst the symptoms were moderate, in the emergency department the symptoms are unchanged. Modifying factors: The symptoms are alleviated by nothing, the symptoms are aggravated by nothing. The patient has not experienced similar symptoms in the past. 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 - Hysterectomy tw2 Historical: - Allergies: 11:59 Doxycycline; tw2 11:59 metoclopramide HCl; tw2 11:59 orange juice; tw2 - Home Meds: 11:59 gabapentin 600 mg Oral tab 1 tab 3 times per day [Active]; Zoloft 25 mg Oral tab 1 tab tw2 once daily [Active]; furosemide 20 mg Oral tab 1 tab once daily [Active]; amlodipine 10 mg tab 1 tab once daily [Active]; Ambien 10 mg Oral tab [Active]; hydralazine 100 mg Oral tab [Active]; Hydrochlorothiazide Oral once daily [Active]; atorvastatin 40 mg Oral tab 1 tab once daily [Active]; lisinopril 40 mg Oral tab twice a day [Active]; alprazolam 2 mg Oral tab 3 times per day [Active]; Insulin: Novolin R Sub-Q [Active]; metformin 1,000 mg Oral tab 2 times per day [Active]; metoprolol tartrate 100 mg Oral tab 1 tab 2 times per day [Active]; [place] 5-325 mg Oral tab 1 tab every 12 hours [Active]; Norvasc Oral once daily [Active]; - PMHx: 11:59 Asthma; Diabetes - NIDDM; Hypertension; COPD; CHF; tw2 - PSHx: 11:59 Cholecystectomy; Appendectomy; partial hysterectomy; tw2 - Immunization history:: Adult Immunizations. - Social history:: Smoking status: . - Ebola Screening: : Patient denies travel to an Ebola-affected area in the 21 days before illness onset. ROS: 19:54 Constitutional: Negative for fever, chills, and weight loss, Eyes: Negative for injury, tw4 pain, redness, and discharge, Cardiovascular: Negative for chest pain, palpitations, and edema, Respiratory: Negative for shortness of breath, cough, wheezing, and pleuritic chest pain, Abdomen/GI: Negative for abdominal pain, nausea, vomiting, diarrhea, and constipation. 19:54 MS/Extremity: Negative for injury and deformity, Skin: Negative for injury, rash, and discoloration, Neuro: Negative for headache, weakness, numbness, tingling, and seizure. 19:54 ENT: Positive for difficulty handling secretions, difficulty swallowing, sore throat. Exam: 19:54 Constitutional: This is a well developed, well nourished patient who is awake, alert, tw4 and in no acute distress. Head/Face: Normocephalic, atraumatic. 19:54 Cardiovascular: Regular rate and rhythm with a normal S1 and S2. No gallops, murmurs, or rubs. Normal PMI, no JVD. No pulse deficits. Respiratory: Lungs have equal breath sounds bilaterally, clear to auscultation and percussion. No rales, rhonchi or wheezes noted. No increased work of breathing, no retractions or nasal flaring. Abdomen/GI: Soft, non-tender, with normal bowel sounds. No distension or tympany. No guarding or rebound. No evidence of tenderness throughout. Back: No spinal tenderness. No costovertebral tenderness. Full range of motion. MS/ Extremity: Pulses equal, no cyanosis. Neurovascular intact. Full, normal range of motion. Neuro: Awake and alert, GCS 15, oriented to person, place, time, and situation. Cranial nerves II-XII grossly intact. Motor strength 5/5 in all extremities. Sensory grossly intact. Cerebellar exam normal. Normal gait. 19:54 ENT: External ear(s): are unremarkable, Ear canal(s): are normal, Mouth: Posterior pharynx: erythema, that is moderate. Vital Signs: 11:57 BP 180 / 105; Pulse 99; Resp 18; Temp 98.1(O); Pulse Ox 97% on R/A; Weight 147.42 kg tw2 (R); Height 5 ft. 3 in. (160.02 cm); Pain 6/10; 13:31 BP 177 / 91; Pulse 82; Resp 18; Pulse Ox 97% on R/A; aj1 14:14 BP 134 / 68; Pulse 81; Resp 18; Pulse Ox 97% on R/A; aj1 11:57 Body Mass Index 57.57 (147.42 kg, 160.02 cm) tw2 MDM: 12:15 Patient medically screened. tw4 19:54 Data reviewed: vital signs, nurses notes. Data interpreted: Pulse oximetry: tw4 Interpretation: normal. Counseling: I had a detailed discussion with the patient and/or guardian regarding: the historical points, exam findings, and any diagnostic results supporting the discharge/admit diagnosis. Medication response: HYDRALAZINE. Special discussion: I discussed with the patient/guardian in detail that at this point there is no indication for admission to the hospital. It is understood, however, that if the symptoms persist or worsen the patient needs to return immediately for re-evaluation. 08/15 12:00 Order name: Flu tw2 08/15 12:00 Order name: Strep; Complete Time: 12:38 tw2 08/15 12:34 Order name: Throat Culture EDMS Administered Medications: 12:56 Drug: hydrALAZINE 20 mg Route: IM; Site: right deltoid; aj1 12:57 Drug: TORadol 60 mg Route: IM; Site: left deltoid; aj1 12:57 Drug: cloNIDine 0.2 mg Route: PO; aj1 Disposition: 08/15/19 14:08 Discharged to Home. Impression: HYPERTENSIVE CRISIS, Acute pharyngitis, unspecified. - Condition is Stable. - Discharge Instructions: Hypertension, Pharyngitis, Sore Throat, Pharyngitis, [id number], Upper Respiratory Infection, Pediatric, Ixdo-ra-Ojcz, Viral Respiratory Infection, Kago-Ih-Wktc. - Prescriptions for Ibuprofen 600 mg Oral Tablet - take 1 tablet by ORAL route every 6 hours As needed take with food; 30 tablet. - Medication Reconciliation Form, Thank You Letter, Antibiotic Education, Prescription Opioid Use form. - Follow up: Private Physician; When: Upon discharge from the Emergency Department; Reason: If symptoms return, Recheck today's complaints, Continuance of care. - Problem is new. - Symptoms have improved. Signatures: Dispatcher [employer] EDWaleska Mott RN RN aj1 Cecilia Kessler RN RN tw2 Stew Preciado MD MD tw4 Corrections: (The following items were deleted from the chart) 14:09 14:08 08/15/2019 14:08 Discharged to Home. Impression: HYPERTENSIVE CRISIS. Condition tw4 is Stable. Forms are Medication Reconciliation Form, Thank You Letter, Antibiotic Education, Prescription Opioid Use. Follow up: Private Physician; When: Upon discharge from the Emergency Department; Reason: If symptoms return, Recheck today's complaints, Continuance of care. Problem is new. Symptoms have improved. tw4 14:15 14:09 08/15/2019 14:08 Discharged to Home. Impression: HYPERTENSIVE CRISIS; Acute aj1 pharyngitis, unspecified. Condition is Stable. Forms are Medication Reconciliation Form, Thank You Letter, Antibiotic Education, Prescription Opioid Use. Follow up: Private Physician; When: Upon discharge from the Emergency Department; Reason: If symptoms return, Recheck today's complaints, Continuance of care. Problem is new. Symptoms have improved. tw4
[2019-08-15 14:45] VITALS: TEMP 98.1; O2SAT 97
[2019-08-15 14:47] VITALS: BP 134/68
== END 2019-08-15 14:15 | disposition home or self-care (01) ==
LOC: ER 11:49
DX: I16.9 Hypertensive crisis, unspecified (principal); E11.9 Type 2 diabetes mellitus without complications; J44.9 Chronic obstructive pulmonary disease, unspecified; I50.9 Heart failure, unspecified; I10 Essential (primary) hypertension; J45.909 Unspecified asthma, uncomplicated; Z79.4 Long term (current) use of insulin; Z88.1 Allergy status to other antibiotic agents; Z91.018 Allergy to other foods
CPT/HCPCS: 87070; 87081; 87804 ×2; J0360; 96372; 99283

== ENCOUNTER 2019-10-03 14:23 | Observation (INO) | payer OTHER ==
--- OUTSIDE RECORDS SUMMARY | 2019-10-03 14:26 | XMS REPORT ---
:1965 Author Organization [facility] Address [address] [place] [address] Care Team Providers Name Role Phone Unavailable Unavailable Unavailable Problems This patient has no known problems. Allergies, Adverse Reactions, Alerts This patient has no known allergies or adverse reactions. Medications This patient has no known medications.
[2019-10-03] MEDS ORDERED: METOPROLOL TAR 50 MG TAB ONE (16:03)
[2019-10-03] MEDS ORDERED: MORPHINE 2 MG/ML SYR ONE (16:03)
[2019-10-03] MEDS ORDERED: ASPIRIN 81 MG CHEWABLE TABLET ONE (16:04)
[2019-10-03] MEDS ORDERED: ENOXAPARIN 100 MG/ML SYR SQ ONE (16:04)
[2019-10-03] MEDS ORDERED: FAMOTIDINE 20 MG/2 ML VIAL IV ONE (16:04)
[2019-10-03] MEDS ORDERED: ONDANSETRON 4 MG/2 ML VIAL ONE (16:04)
[2019-10-03 16:35] LABS: Absolute Lymphocytes (CBC) 1.9 K/uL (0.7-4.9); Basophils % 0.6 % (0-1.3); Hematocrit 47.2 % (36.0-45.0); MPV 10.6 fL (7.6-11.3); RBC Red Blood Cell Count 5.04 M/uL (3.86-4.86)
[2019-10-03 16:39] LABS: ALT/SGPT 195 U/L (12-78); AST/SGOT 183 U/L (15-37); Albumin 3.3 g/dL (3.4-5.0); Alkaline Phosphatase 161 U/L (45-117); BUN Blood Urea Nitrogen 11 mg/dL (7-18); Bicarbonate 29 mmol/L (21-32); Bilirubin Direct < 0.1 mg/dL (0-0.2); Bilirubin Total 0.2 mg/dL (0.2-1.0); Glucose Level 197 mg/dL (74-106); Magnesium 1.8 mg/dL (1.8-2.4); NT PRO-BNP 15 pg/mL (<125); Potassium 3.4 mmol/L (3.5-5.1); Protein, Total 7.6 g/dL (6.4-8.2); Sodium Level 139 mmol/L (136-145); Troponin (Emerg Dept Use Only) < 0.02 ng/mL (0.0-0.045)
[2019-10-03 16:44] LABS: Protime INR 1.12
--- NOTE | 2019-10-03 17:14 | ER ---
Nurse's Notes [facility] Name: Maria De Jesus Acosta Age: 54 yrs Sex: Female : 1965 Arrival Date: 10/03/2019 Time: 14:24 Bed 19 Private MD: Trent Irving H Diagnosis: Chest pain, unspecified;Type 2 diabetes mellitus;Obesity, unspecified Presentation: 10/03 14:25 Presenting complaint: Patient states: "I was having this pain on my side last night I aj1 started having chest pain, and this morning its coming fast I feel real weak. I took nitroglycerine tablet twice but it didn't help". Transition of care: patient was not received from another setting of care. Onset of symptoms was October 03, 2019 at 05:00. Risk Assessment: Do you want to hurt yourself or someone else? Patient reports no desire to harm self or others. Initial Sepsis Screen: Does the patient meet any 2 criteria? No. Patient's initial sepsis screen is negative. Does the patient have a suspected source of infection? No. Patient's initial sepsis screen is negative. Care prior to arrival: None. 14:25 Method Of Arrival: Ambulatory aj1 14:25 Acuity: EMERALD 3 aj1 Triage Assessment: 14:27 General: Appears in no apparent distress. uncomfortable, Behavior is calm, cooperative, aj1 appropriate for age. Pain: Complains of pain in mid-sternal area Pain does not radiate. Pain currently is 6 out of 10 on a pain scale. Neuro: Level of Consciousness is awake, alert, obeys commands, Oriented to person, place, time, situation. Cardiovascular: Reports chest pain, Patient's skin is warm and dry. Respiratory: Airway is patent Respiratory effort is even, unlabored, Respiratory pattern is regular, symmetrical. CLINICAL ALLERGIST: 14:27 LMP N/A - Post-menopause aj1 Historical: - Allergies: 14:27 Doxycycline; aj1 14:27 metoclopramide HCl; aj1 14:27 orange juice; aj1 - PMHx: 14:27 Asthma; CHF; COPD; Diabetes - NIDDM; Hypertension; aj1 - Immunization history:: Flu vaccine is not up to date. - Social history:: Smoking status: Patient/guardian denies using tobacco. - Ebola Screening: : Patient denies travel to an Ebola-affected area in the 21 days before illness onset. Screenin:00 Abuse screen: Denies threats or abuse. Denies injuries from another. Nutritional wh screening: No deficits noted. Tuberculosis screening: No symptoms or risk factors identified. Fall Risk None identified. Assessment: 15:00 General: Appears in no apparent distress. Behavior is calm, cooperative, appropriate wh for age. Pain: Complains of pain in chest Pain does not radiate. Pain currently is 8 out of 10 on a pain scale. Pain began this morning. Neuro: Level of Consciousness is awake, alert, obeys commands, Oriented to person, place, time, situation, Appropriate for age. Cardiovascular: Heart tones S1 S2. Respiratory: Airway is patent Respiratory effort is even, unlabored, Respiratory pattern is regular, symmetrical, Breath sounds are clear bilaterally. GI: Abdomen is round non-distended. : No signs and/or symptoms were reported regarding the genitourinary system. EENT: No signs and/or symptoms were reported regarding the EENT system. Derm: Skin is intact, is healthy with good turgor. Musculoskeletal: Circulation, motion, and sensation intact. 16:25 Reassessment: Patient appears in no apparent distress at this time. No changes from previously documented assessment. Patient and/or family updated on plan of care and expected duration. Pain level reassessed. Patient is alert, oriented x 3, equal unlabored respirations, skin warm/dry/pink. 17:10 Reassessment: Patient appears in no apparent distress at this time. No changes from previously documented assessment. Patient and/or family updated on plan of care and expected duration. Pain level reassessed. Patient is alert, oriented x 3, equal unlabored respirations, skin warm/dry/pink. 18:51 Reassessment: Patient appears in no apparent distress at this time. No changes from previously documented assessment. Patient and/or family updated on plan of care and expected duration. Pain level reassessed. Patient is alert, oriented x 3, equal unlabored respirations, skin warm/dry/pink. 19:15 Reassessment: Patient appears in no apparent distress at this time. Patient and/or cc3 family updated on plan of care and expected duration. Pain level reassessed. Patient is alert, oriented x 3, equal unlabored respirations, skin warm/dry/pink. Received this female patient from morning shift JCARLOS Cervantes as a case of chest and abdominal pain for admission awaiting bed availability. With IV cannula gauge 20 at the right ACV saline locked. Patient denies pain at this time. Patient states feeling better. Patient states symptoms have improved. General: Appears in no apparent distress. comfortable, Behavior is calm, cooperative, appropriate for age. Pain: Denies pain. Neuro: Level of Consciousness is awake, alert, obeys commands, Oriented to person, place, time, situation, Appropriate for age. Cardiovascular: Heart tones S1 S2 present Capillary refill < 3 seconds in bilateral fingers Patient's skin is warm and dry. Respiratory: Airway is patent Respiratory effort is even, unlabored, Respiratory pattern is regular, symmetrical, Breath sounds are clear bilaterally. GI: Abdomen is round obese, Bowel sounds present X 4 quads. Abd is soft and non tender X 4 quads. : No signs and/or symptoms were reported regarding the genitourinary system. EENT: No signs and/or symptoms were reported regarding the EENT system. Derm: Skin is intact, is healthy with good turgor, Skin is pink, warm \\T\\ dry. normal. Musculoskeletal: Circulation, motion, and sensation intact. Range of motion: intact in all extremities. 20:45 Reassessment: Patient appears in no apparent distress at this time. Patient and/or cc3 family updated on plan of care and expected duration. Pain level reassessed. Patient is alert, oriented x 3, equal unlabored respirations, skin warm/dry/pink. Room available in 423, report called and handed over to JCARLOS Morataya for continuity of care and management. Patient denies pain at this time. Patient states feeling better. Patient states symptoms have improved. 21:00 Reassessment: Patient appears in no apparent distress at this time. Patient and/or cc3 family updated on plan of care and expected duration. Pain level reassessed. Patient is alert, oriented x 3, equal unlabored respirations, skin warm/dry/pink. Patient taken by health type technician to their department by wheelchair. 21:40 Reassessment: Patient appears in no apparent distress at this time. Patient and/or cc3 family updated on plan of care and expected duration. Pain level reassessed. Patient is alert, oriented x 3, equal unlabored respirations, skin warm/dry/pink. Patient came back from ultrasound department. 22:00 Reassessment: Patient appears in no apparent distress at this time. Patient and/or cc3 family updated on plan of care and expected duration. Pain level reassessed. Patient is alert, oriented x 3, equal unlabored respirations, skin warm/dry/pink. Patient left ER for admission vitally stable by wheelchair escorted by plant tech Chris and the patient's . No valuables left in the patient's room. Patient denies pain at this time. Patient states feeling better. Patient states symptoms have improved. Vital Signs: 14:27 BP 152 / 89; Pulse 113; Resp 20; Temp 97.0; Pulse Ox 94% on R/A; Weight 149.69 kg (R); aj1 Height 5 ft. 3 in. (160.02 cm) (R); Pain 6/10; 15:15 BP 160 / 70; Pulse 93; Resp 18; Temp 98.1; Pulse Ox 92% on R/A; mh5 16:00 BP 116 / 72; Pulse 89; Resp 20; Pulse Ox 91% on R/A; mh5 17:00 BP 105 / 79; Pulse 90; Resp 20; Temp 98.; Pulse Ox 92% on R/A; mh5 18:10 BP 115 / 98; Pulse 90; Resp 20; Temp 98.0(O); Pulse Ox 91% on R/A; mh5 19:30 BP 123 / 79; Pulse 87; Resp 16 S; Temp 98.3(O); Pulse Ox 96% on R/A; Pain 0/10; cc3 20:12 BP 121 / 81; Pulse 88; Resp 17 S; Pulse Ox 96% on R/A; cc3 21:50 BP 125 / 77; Pulse 83; Resp 16 S; Pulse Ox 95% on R/A; cc3 14:27 Body Mass Index 58.46 (149.69 kg, 160.02 cm) aj1 ED Course: 14:24 Patient arrived in ED. as 14:24 Trent Irving DO is Private Physician. as 14:27 Triage completed. aj1 14:27 Arm band placed on. EKG completed in triage. Results shown to MD. aj1 14:30 Patient maintains SpO2 saturation greater than 95% on room air. wh 14:44 Dominguez Voss MD is Attending Physician. [facility] 15:05 Patient has correct armband on for positive identification. Placed in gown. Bed in low mh5 position. Call light in reach. Side rails up X2. Warm blanket given. telemetry monitor on. Pulse ox on. NIBP on. 15:05 Initial lab(s) drawn, by me, held in ED. Inserted saline lock: 20 gauge in right 5 antecubital area, using aseptic technique. Blood collected. 15:06 EKG done, by ED staff, reviewed by Dominguez Voss MD. [facility] 15:43 XRAY Chest (1 view) In Process Unspecified. EDRI 15:46 Tita Gtz, JCARLOS is Primary Nurse. [facility] 15:53 Radiology exam delayed due to lab results not completed at this time. (BUN/Creatinine). 2 17:[address] via stretcher. ca 17:02 CT completed. Patient tolerated procedure well. Patient moved back from CT. ca 17:03 CT Aorta for Dissection In Process Unspecified. EDRI 17:12 Adrianna Alvarez MD is Hospitalizing Provider. [facility] 20:45 No provider procedures requiring assistance completed. Patient admitted, IV remains in cc3 place. Administered Medications: 16:00 Drug: morphine 2 mg Route: IVP; Site: right antecubital; 17:51 Follow up: Response: No adverse reaction; Pain is decreased; RASS: Alert and Calm (0) 16:02 Drug: Zofran 4 mg Route: IVP; Site: right antecubital; 17:51 Follow up: Response: No adverse reaction; Nausea is decreased 16:04 Drug: Pepcid 20 mg Route: IVP; Site: right antecubital; 17:52 Follow up: Response: No adverse reaction 16:09 Drug: Aspirin 162 mg Route: PO; 17:52 Follow up: Response: No adverse reaction 16:11 Drug: Lopressor (metoprolol TARTRATE) 50 mg Route: PO; 17:53 Follow up: Response: No adverse reaction 16:13 Drug: Lovenox 100 mg Route: Sub-Q; Site: right lower abdomen; 17:52 Follow up: Response: No adverse reaction 18:01 Drug: Rocephin 1 grams Route: IV; Rate: per protocol; Site: right antecubital; 18:55 Follow up: Response: No adverse reaction; IV Status: Completed infusion Outcome: 17:13 Decision to Hospitalize by Provider. [facility] 20:45 Admitted to Tele accompanied by tech, family with patient, via wheelchair, room 423, cc3 with chart, Report called to JCARLOS Morataya 20:45 Condition: stable 20:45 Instructed on the need for admit, Demonstrated understanding of instructions. 22:34 Patient left the ED. cc3 Signatures: Dispatcher [employer] EDWaleska Mott, RN RN [email or web address] Tita Gtz, RN RN dm5 Dominguez Voss MD MD cha Martinez, Zohreh Medrano, Irina Beauchamp Elizabeth Cavazos Winsy wh Cordel, Charlene cc3 Corrections: (The following items were deleted from the chart) 18:50 14:00 Patient maintains SpO2 saturation greater than 95% on room air. [facility] 10/04 05:09 12/03 21:23 BP 125 / 77; Pulse 83bpm; Resp 16bpm; Spontaneous; Pulse Ox 95% RA; cc3 cc3
--- NOTE | 2019-10-03 17:14 | EDPHYS ---
Physician Documentation [facility] Name: Maria De Jesus Acosta Age: 54 yrs Sex: Female : 1965 Arrival Date: 10/03/2019 Time: 14:24 Bed 19 Private MD: Trent Irving H ED Physician Dominguez Voss HPI: 10/03 15:17 This 54 yrs old Female presents to ER via Ambulatory with complaints of Chest ebenezer Pain. 15:17 The patient or guardian reports chest pain that is located primarily in the substernal ebenezer area, anterior chest wall. Onset: just prior to arrival, this morning. The pain does not radiate. Associated signs and symptoms: Pertinent positives:. MULTIMEDIA ARTIST: 14:27 LMP N/A - Post-menopause aj1 Historical: - Allergies: 14:27 Doxycycline; aj1 14:27 metoclopramide HCl; aj1 14:27 orange juice; aj1 - PMHx: 14:27 Asthma; CHF; COPD; Diabetes - NIDDM; Hypertension; aj1 - Immunization history:: Flu vaccine is not up to date. - Social history:: Smoking status: Patient/guardian denies using tobacco. - Ebola Screening: : Patient denies travel to an Ebola-affected area in the 21 days before illness onset. ROS: 15:21 Constitutional: Negative for fever, chills, and weight loss, Eyes: Negative for injury, ebenezer pain, redness, and discharge, ENT: Negative for injury, pain, and discharge, Neck: Negative for injury, pain, and swelling, Abdomen/GI: Negative for abdominal pain, nausea, vomiting, diarrhea, and constipation, Back: Negative for injury and pain. 15:21 Cardiovascular: Positive for chest pain. 15:21 Respiratory: Positive for cough. 15:21 Abdomen/GI: Negative for abdominal pain. 15:21 MS/extremity: Negative for acute changes. Exam: 15:21 Constitutional: This is a well developed, well nourished patient who is awake, alert, ebenezer and in no acute distress. Head/Face: Normocephalic, atraumatic. Eyes: Pupils equal round and reactive to light, extra-ocular motions intact. Lids and lashes normal. Conjunctiva and sclera are non-icteric and not injected. Cornea within normal limits. Periorbital areas with no swelling, redness, or edema. ENT: Nares patent. No nasal discharge, no septal abnormalities noted. Tympanic membranes are normal and external auditory canals are clear. Oropharynx with no redness, swelling, or masses, exudates, or evidence of obstruction, uvula midline. Mucous membranes moist. Neck: Trachea midline, no thyromegaly or masses palpated, and no cervical lymphadenopathy. Supple, full range of motion without nuchal rigidity, or vertebral point tenderness. No Meningismus. Chest/axilla: Normal chest wall appearance and motion. Nontender with no deformity. No lesions are appreciated. Cardiovascular: Regular rate and rhythm with a normal S1 and S2. No gallops, murmurs, or rubs. Normal PMI, no JVD. No pulse deficits. Respiratory: Lungs have equal breath sounds bilaterally, clear to auscultation and percussion. No rales, rhonchi or wheezes noted. No increased work of breathing, no retractions or nasal flaring. Abdomen/GI: Soft, non-tender, with normal bowel sounds. No distension or tympany. No guarding or rebound. No evidence of tenderness throughout. Back: No spinal tenderness. No costovertebral tenderness. Full range of motion. Skin: Warm, dry with normal turgor. Normal color with no rashes, no lesions, and no evidence of cellulitis. MS/ Extremity: Pulses equal, no cyanosis. Neurovascular intact. Full, normal range of motion. Neuro: Awake and alert, GCS 15, oriented to person, place, time, and situation. Cranial nerves II-XII grossly intact. Motor strength 5/5 in all extremities. Sensory grossly intact. Cerebellar exam normal. Normal gait. Psych: Awake, alert, with orientation to person, place and time. Behavior, mood, and affect are within normal limits. 15:21 Musculoskeletal/extremity: DVT Exam: No signs of deep vein thrombosis. no pain, no swelling, no tenderness, negative Homans' sign noted on exam, no appreciated bluish discoloration, no erythema, no increased warmth. Vital Signs: 14:27 BP 152 / 89; Pulse 113; Resp 20; Temp 97.0; Pulse Ox 94% on R/A; Weight 149.69 kg (R); aj1 Height 5 ft. 3 in. (160.02 cm) (R); Pain 6/10; 15:15 BP 160 / 70; Pulse 93; Resp 18; Temp 98.1; Pulse Ox 92% on R/A; mh5 16:00 BP 116 / 72; Pulse 89; Resp 20; Pulse Ox 91% on R/A; mh5 17:00 BP 105 / 79; Pulse 90; Resp 20; Temp 98.; Pulse Ox 92% on R/A; mh5 18:10 BP 115 / 98; Pulse 90; Resp 20; Temp 98.0(O); Pulse Ox 91% on R/A; mh5 19:30 BP 123 / 79; Pulse 87; Resp 16 S; Temp 98.3(O); Pulse Ox 96% on R/A; Pain 0/10; cc3 20:12 BP 121 / 81; Pulse 88; Resp 17 S; Pulse Ox 96% on R/A; cc3 21:50 BP 125 / 77; Pulse 83; Resp 16 S; Pulse Ox 95% on R/A; cc3 14:27 Body Mass Index 58.46 (149.69 kg, 160.02 cm) aj1 MDM: 14:44 Patient medically screened. [facility] 15:23 Data reviewed: vital signs, nurses notes, lab test result(s), EKG, radiologic studies, [facility] CT scan, plain films. 10/03 15:15 Order name: Basic Metabolic Panel; Complete Time: 17:09 [facility] 10/03 15:15 Order name: CBC with Diff; Complete Time: 17:09 [facility] 10/03 15:15 Order name: LFT's; Complete Time: 17:09 [facility] 10/03 15:15 Order name: Magnesium; Complete Time: 17:09 [facility] 10/03 15:15 Order name: NT PRO-BNP; Complete Time: 17:09 [facility] 10/03 15:15 Order name: PT-INR; Complete Time: 17:09 [facility] 10/03 15:15 Order name: Troponin (emerg Dept Use Only); Complete Time: 17:09 [facility] 10/03 15:15 Order name: Blood Culture Adult (2) [facility] 10/03 15:17 Order name: Lipase; Complete Time: 17:09 [facility] 10/03 15:20 Order name: Urine Culture [facility] 10/03 17:58 Order name: Urine Dipstick--Ancillary (enter results); Complete Time: 20:13 10/03 19:38 Order name: CBC with Automated Diff EDMS 10/03 19:38 Order name: CBC with Automated Diff EDMS 10/03 19:38 Order name: Comprehensive Metabolic Panel EDVT 10/03 15:15 Order name: XRAY Chest (1 view); Complete Time: 17:47 [facility] 10/03 15:20 Order name: CT Aorta for Dissection; Complete Time: 17:47 [facility] 10/03 19:34 Order name: Abdomen Exam Complete EDVT 10/03 19:38 Order name: Comprehensive Metabolic Panel EDMS 10/03 19:38 Order name: Protime (+INR) EDMS 10/03 19:38 Order name: Protime (+INR) EDMS 10/03 19:38 Order name: PTT, Activated Partial Thromb EDMS 10/03 19:38 Order name: PTT, Activated Partial Thromb EDVT 10/03 15:15 Order name: EKG; Complete Time: 15:16 [facility] 10/03 15:15 Order name: Cardiac monitoring; Complete Time: 15:46 [facility] 10/03 15:15 Order name: EKG - Nurse/Tech; Complete Time: 15:47 [facility] 10/03 15:15 Order name: IV Saline Lock; Complete Time: 15:47 [facility] 10/03 15:15 Order name: Labs collected and sent; Complete Time: 15:47 [facility] 10/03 15:15 Order name: O2 Per Protocol; Complete Time: 15:47 [facility] 10/03 15:15 Order name: O2 Sat Monitoring; Complete Time: 15:47 [facility] 10/03 15:20 Order name: Urine Dipstick-Ancillary (obtain specimen); Complete Time: 17:48 [facility] 10/03 15:42 Order name: Labs - recollect needed; Complete Time: 15:50 10/03 19:38 Order name: CONS Pharmacy Consult [facility] 10/03 19:38 Order name: NPO EDMS Administered Medications: 16:00 Drug: morphine 2 mg Route: IVP; Site: right antecubital; 17:51 Follow up: Response: No adverse reaction; Pain is decreased; RASS: Alert and Calm (0) 16:02 Drug: Zofran 4 mg Route: IVP; Site: right antecubital; 17:51 Follow up: Response: No adverse reaction; Nausea is decreased 16:04 Drug: Pepcid 20 mg Route: IVP; Site: right antecubital; 17:52 Follow up: Response: No adverse reaction 16:09 Drug: Aspirin 162 mg Route: PO; 17:52 Follow up: Response: No adverse reaction 16:11 Drug: Lopressor (metoprolol TARTRATE) 50 mg Route: PO; 17:53 Follow up: Response: No adverse reaction 16:13 Drug: Lovenox 100 mg Route: Sub-Q; Site: right lower abdomen; 17:52 Follow up: Response: No adverse reaction 18:01 Drug: Rocephin 1 grams Route: IV; Rate: per protocol; Site: right antecubital; 18:55 Follow up: Response: No adverse reaction; IV Status: Completed infusion Disposition: 10/03/19 17:13 Hospitalization ordered by Adrianna Alvarez for Inpatient Admission. Preliminary diagnosis are Chest pain, unspecified, Type 2 diabetes mellitus, Obesity, unspecified. - Bed requested for Telemetry/MedSurg (Inpatient). - Status is Inpatient Admission. cc3 - Condition is Stable. - Problem is new. - Symptoms have improved. UTI on Admission? Yes Signatures: Dispatcher [employer] EDMS Destiny Marquez Angela, RN RN Tita Calderon, RN RN dm5 Yary Davis RN Dominguez Vazquez MD MD cha Habalo, Winsy Lu Bob cc3 Corrections: (The following items were deleted from the chart) 17:42 17:10 Abdomen Limited+US.RAD.BRZ ordered. EDVT EDMS 19:14 17:45 Abdomen Limited+US.RAD.BRZ ordered. EDVT EDMS 19:41 17:13 Hospitalization Ordered by Adrianna Alvarez MD for Inpatient Admission. Preliminary diagnosis is Chest pain, unspecified; Type 2 diabetes mellitus; Obesity, unspecified. Bed requested for Telemetry/MedSurg (Inpatient). Status is Inpatient Admission. Condition is Stable. Problem is new. Symptoms have improved. UTI on Admission? Yes. [facility] 22:34 19:41 10/03/2019 17:13 Hospitalization Ordered by Adrainna Alvarez MD for Inpatient cc3 Admission. Preliminary diagnosis is Chest pain, unspecified; Type 2 diabetes mellitus; Obesity, unspecified. Bed requested for Telemetry/MedSurg (Inpatient). Status is Inpatient Admission. Condition is Stable. Problem is new. Symptoms have improved. UTI on Admission? Yes. mw
--- NOTE | 2019-10-03 17:26 | RAD REPORT ---
EXAM DESCRIPTION: CT - Angio Aorta For Dissection - 10/03/2019 5:02 pm CLINICAL HISTORY: . Chest/abd pain COMPARISON: CT chest 2018 TECHNIQUE: Computed tomography angiography of the chest, abdomen pelvis were obtained. 100 cc Isovue 370 was administered intravenously. Coronal and sagittal reconstruction were performed. MIP 3D reconstruction was performed All CT scans are performed using dose optimization technique as appropriate and may include automated exposure control or mA/KV adjustment according to patient size. FINDINGS: An aortic dissection is not seen. An aortic aneurysm is not displayed. The celiac, SMA and ELINA are patent . A lung consolidation is not present. A pericardial effusion is not seen. A pleural effusion is not n oted. Fatty liver Spleen, pancreas adrenals kidneys demonstrate no significant abnormality. No evidence of diverticulitis Fluid is present within small bowel. Mildly dilated loop of jejunum is present IMPRESSION: Negative for an aortic dissection. Fluid within small bowel. Mildly dilated loop of jejunum. This may indicate an enteritis
--- NOTE | 2019-10-03 17:26 | RAD REPORT ---
EXAM DESCRIPTION: Lion Single View10/03/2019 3:40 pm CLINICAL HISTORY: Chest pain COMPARISON: April 2018 FINDINGS: The lungs appear clear of acute infiltrate. The heart is normal size IMPRESSION: No acute abnormalities displayed
[2019-10-03] MEDS ORDERED: CEFTRIAXONE/SWI 1gm 1 GM/10 ML SYR ONE (17:59)
[2019-10-03 18:17] LABS: Urine Blood NEGATIVE (NEG); Urine Glucose NEGATIVE (NEG); Urine Protein 1+ (NEG)
[2019-10-03] MEDS ORDERED: ACETAMINOPHEN 500 MG TAB PO PRN (19:33)
[2019-10-03] MEDS ORDERED: ONDANSETRON 4 MG/2 ML VIAL IV PRN (19:33)
[2019-10-03] MEDS ORDERED: LORazepam 2 MG/ML VIAL IV PRN (19:33)
[2019-10-03 22:38] VITALS: BMI 58.2
[2019-10-03] MEDS: METRONIDAZOLE 500mg IVPB 500 MG/100 ML BAG IV SCH (23:13)
[2019-10-03] MEDS: Levofloxacin500mg IV 500 MG/100 ML BAG IV SCH (23:13)
[2019-10-03] MEDS: NA CHLORIDE 0.9% 1,000 ML IV SCH (23:13)
[2019-10-03] MEDS: MORPHINE 2 MG/ML SYR IV PRN (23:15)
[2019-10-04 04:19] LABS: Absolute Lymphocytes (CBC) 1.6 K/uL (0.7-4.9); Basophils % 0.8 % (0-1.3); Hematocrit 49.5 % (36.0-45.0); Lymphocytes % 28.4 % (15.3-44.8); MPV 9.6 fL (7.6-11.3); Protime INR 1.08; RBC Red Blood Cell Count 5.21 M/uL (3.86-4.86)
[2019-10-04 04:57] LABS: Albumin 3.5 g/dL (3.4-5.0); Bilirubin Total 0.3 mg/dL (0.2-1.0); Potassium 4.6 mmol/L (3.5-5.1); Protein, Total 8.1 g/dL (6.4-8.2)
[2019-10-04] MEDS: NA CHLORIDE 0.9% 1,000 ML IV SCH ×2 (06:00→12:07)
--- NOTE | 2019-10-04 06:21 | EKG ---
Test Date: 2019-10-03 Test Time: 14:33:10 Air Saw Operator: EDUARD MEASUREMENT RESULTS: Intervals: Rate: 99 MD: 158 QRSD: 76 QT: 352 QTc: 451 Nerinx: P: 46 MD: 158 QRS: 19 T: 66 INTERPRETIVE STATEMENTS: Normal sinus rhythm Cannot rule out Anterior infarct, age undetermined Abnormal ECG Compared to ECG 04/27/2019 12:40:20 No significant changes Electronically Signed On 10-04-19 06:20:28 SAFETY RISK LEAD by Maciej Ortega
[2019-10-04] MEDS: METRONIDAZOLE 500mg IVPB 500 MG/100 ML BAG IV SCH ×3 (06:42→17:02)
[2019-10-04] MEDS: MORPHINE 2 MG/ML SYR IV PRN ×2 (06:55→21:03)
[2019-10-04] MEDS ORDERED: PNEUMOCOCCAL VACCINE 0.5 ML IMVAC ONE (08:00)
[2019-10-04] MEDS: METHYLPREDNISOLONE 125 MG INJ IV SCH ×2 (08:25→12:01)
--- NOTE | 2019-10-04 08:28 | RAD REPORT ---
EXAM DESCRIPTION: US - Abdomen Exam Complete - 10/03/2019 10:07 pm CLINICAL HISTORY: Abdominal pain COMPARISON: October 03, 2019 cat scan FINDINGS: The liver has an increased echotexture. The liver is mildly enlarged Cholecystectomy. The biliary tree is normal caliber. The pancreas is normal in size and echotexture The right kidney measures 11 centimeters with a normal echotexture. The left kidney measures 11 centimeters with a normal echotexture. The spleen measures 10 centimeters. The inferior vena cava and abdominal aorta are not well seen secondary to overlying bowel gas IMPRESSION: Increased hepatic echotexture consistent with fatty infiltration Mild hepatomegaly
--- NOTE | 2019-10-04 17:20 | P.HP ---
Certification for Inpatient Patient admitted to: Observation With expected LOS: <2 Midnights Patient will require the following post-hospital care: None Practitioner: I am a practitioner with admitting privileges, knowledge of patient current condition, hospital course, and medical plan of care. Services: Services provided to patient in accordance with Admission requirements found in Title 42 Section 412.3 of the Code of Federal Regulations Patient History Date of Service: 10/03/19 Reason for admission: Abdominal pain and colitis History of Present Illness: Patient is a 54-year-old female came to the hospital with abdominal pain. She was seen by look with GI physician in told a scheduled colonoscopy in 2 weeks. However, she felt like she needed to be evaluated sooner. She was told she may need cardiac clearance and because she was having continued discomfort she came to the hospital. In the ER her hemoglobin is stable. A CT of the abdomen that was seen on aortic dissection study did not reveal any significant pathology except for possible enteritis. At this time patient is clinically doing well. She does want to see a GI physician and we do have Dr. Magaña head neck surgeon today. Will have him assess the patient and if she is agreeable will continue with outpatient follow-up. Allergies doxycycline Allergy (Mild, Verified 08/26/18 09:21) Nausea/Vomiting orange juice [Price Juice] Allergy (Mild, Verified 08/26/18 09:21) Nausea/Vomiting metoclopramide HCl [From Reglan] Allergy (Verified 08/26/18 09:21) Unknown Home Medications: ALPRAZolam [Xanax*] 2 mg PO TIDP PRN 10/04/19 Albuterol Sulfate [Proair Hfa] 1 puff IH Q4HP PRN 10/04/19 Atorvastatin Calcium [Lipitor] 40 mg PO DAILY 10/04/19 Clonidine HCl [Catapres*] 0.2 mg PO TID 10/04/19 Colchicine [Colcrys *] 0.6 mg PO DAILY 10/04/19 Doxepin HCl [Sinequan*] 25 mg PO BEDTIME 10/04/19 Duloxetine HCl [Cymbalta] 30 mg PO DAILY 10/04/19 Fluticasone/Umeclidin/Vilanter [Trelegy Ellipta 100-62.5-25] 1 puff IH DAILY 02/17 Furosemide [Lasix*] 20 mg PO BID 10/04/19 Gabapentin 600 mg PO TID 10/04/19 Hum Insulin NPH/Reg Insulin Hm [Humulin 70-30 Vial] 75 unit SQ DAILY 10/04/19 Hydralazine HCl [Apresoline] 100 mg PO TID 10/04/19 Hydrocodone 5/APAP 325 [[place] 5/325*] 1 tab PO Q6HP PRN 10/04/19 Liraglutide [Victoza 2-Ze] 1.8 mg SQ DAILY 10/04/19 Lisinopril 0.5 tab PO BID 10/04/19 Metformin HCl 1,000 mg PO BIDWM 10/04/19 Metoprolol Succinate [Toprol Xl] 100 mg PO BID 10/04/19 Montelukast [Singulair*] 10 mg PO DAILY 10/04/19 Pantoprazole [Protonix Tab*] 40 mg PO BID 10/04/19 Zolpidem Tartrate [Ambien*] 10 mg PO BEDTIME 10/04/19 - Past Medical/Surgical History Has patient received pneumonia vaccine in the past: No Diabetic: Yes -: lap band -: CHF -: HTN -: COPD -: Asthma -: CVA -: DM -: History of TIA -: sleep apnea -: Appendectomy -: cholecystectomy -: Miscarriage -: Ectopic -: -: Right wrist surgery, Left Shoulder surgery, Right knee surgery -: Lap. 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 - Family History Mother Medical History: Heart disease, Hypertension, Diabetes, Stroke, Cancer Father Medical History: Diabetes, Kidney disease Notes: leukemia - Social History Smoking Status: Former smoker Alcohol use: No CD- Drugs: No Caffeine use: Yes Place of Residence: Home Review of Systems 10-point ROS is otherwise unremarkable Physical Examination - Vital Signs Temperature: 97.5 F Blood Pressure: 129/70 Pulse: 89 Respirations: 17 Pulse Ox (%): 90 - Physical Exam General: Alert, In no apparent distress, Oriented x3 HEENT: Atraumatic, PERRLA, Mucous membr. moist/pink, EOMI, Sclerae nonicteric Neck: Supple, 2+ carotid pulse no bruit, No LAD, Without JVD or thyroid abnormality Respiratory: Clear to auscultation bilaterally, Normal air movement Cardiovascular: Regular rate/rhythm, Normal S1 S2, No murmurs Gastrointestinal: Normal bowel sounds, Soft and benign, Non-distended, No tenderness Musculoskeletal: No clubbing, No swelling, No tenderness Integumentary: No rashes Neurological: Normal gait, Normal speech, Normal strength at 5/5 x4 extr, Normal tone, Sensation intact, Cranial nerves 3-12 intact, Normal affect Lymphatics: No axilla or inguinal lymphadenopathy Assessment & Plan - Problems (Diagnosis) (1) Abdominal pain Onset Date: 09/11/16 Current Visit: No Status: Acute Qualifiers: (2) COPD exacerbation Onset Date: 11/03/16 Current Visit: No Status: Acute (3) Diabetes mellitus Onset Date: 05/21/16 Current Visit: No Status: Chronic Qualifiers: (4) HTN (hypertension) Onset Date: 05/21/16 Current Visit: No Status: Chronic Qualifiers: (5) Hyperlipidemia Current Visit: No Status: Chronic Qualifiers: (6) Hypoxia Onset Date: 11/03/16 Current Visit: No Status: Chronic (7) Morbid obesity Onset Date: 09/11/16 Current Visit: No Status: Chronic (8) SAMEER (obstructive sleep apnea) Current Visit: No Status: Chronic - Plan 1. Continue with IV hydration 2. Continue with IV antibiotics 3. Continue with pain control 4. NPO 5. GI consultation; outpatient colonoscopy in 6-12 weeks 6. Serial H&H, and we will monitor CBC, BMP, LFTs and lipase along with electrolytes. 7. GI and DVT prophylaxis Discharge Plan: Home Plan to discharge in: 48 Hours - Advance Directives Does patient have a Living Will: No Does patient have a Durable POA for Healthcare: No - Code Status/Comfort Care Code Status Assessed: Yes Code Status: Full Code Critical Care: No Time Spent Managing PTS Care (In Minutes): 45
[2019-10-04] MEDS ORDERED: METHYLPREDNISOLONE 125 MG INJ IV SCH (20:00)
[2019-10-04] MEDS ORDERED: HYDROCODONE/APAP 5/325 MG TAB PO PRN (23:31)
[2019-10-04] MEDS ORDERED: ALPRAZOLAM 1 MG TABLET PO PRN (23:31)
[2019-10-04] MEDS ORDERED: ZOLPIDEM TARTRATE 10 MG TABLET PO PRN (23:31)
[2019-10-04] MEDS ORDERED: ALBUTEROL INHALER 60 PUFF/8 GM IH PRN (23:31)
[2019-10-04] MEDS ORDERED: METOPROLOL XL 50 MG TAB PO ONE (23:33)
[2019-10-05] MEDS: NA CHLORIDE 0.9% 1,000 ML IV SCH ×2 (00:18→11:39)
[2019-10-05] MEDS: Levofloxacin500mg IV 500 MG/100 ML BAG IV SCH (00:19)
[2019-10-05] MEDS: METRONIDAZOLE 500mg IVPB 500 MG/100 ML BAG IV SCH ×3 (01:41→11:36)
[2019-10-05] MEDS: cloNIDine HCL 0.1 MG TAB PO SCH ×3 (02:25→13:45)
[2019-10-05] MEDS ORDERED: FUROSEMIDE 20 MG TABLET PO SCH (06:00)
[2019-10-05] MEDS ORDERED: METFORMIN HCL 500 MG TAB PO SCH (08:00)
[2019-10-05] MEDS: GABAPENTIN 300 MG CAP PO SCH ×2 (08:23→13:45)
[2019-10-05] MEDS: HYDRALAZINE HCL 25 MG TABLET PO SCH ×2 (08:25→13:45)
[2019-10-05] MEDS ORDERED: HOME MED 1 EA UNK (Liraglutide [Victoza 2-Pak] 1.8 MG) SQ SCH (09:00)
[2019-10-05] MEDS ORDERED: INSULIN 70/30 100 UNITS/ML SQ SCH (09:00)
[2019-10-05] MEDS ORDERED: HOME MED 1 EA UNK (Fluticasone/Umeclidin/Vilanter [Trelegy Ellipta 100-62.5-25] 1 PUFF) IH SCH (09:00)
[2019-10-05] MEDS ORDERED: MONTELUKAST 10 MG TAB PO SCH (09:00)
[2019-10-05] MEDS ORDERED: lisinopriL 20 MG TAB PO SCH (09:00)
[2019-10-05] MEDS ORDERED: ATORVASTATIN 40 MG TAB PO SCH (09:00)
[2019-10-05] MEDS ORDERED: DULOXETINE 30 MG CAP PO SCH (09:00)
[2019-10-05] MEDS ORDERED: METOPROLOL XL 100 MG TAB PO SCH (09:00)
[2019-10-05] MEDS ORDERED: COLCHICINE 0.6 MG TAB PO SCH (09:00)
[2019-10-05 09:59] VITALS: O2SAT 91
[2019-10-05 12:06] VITALS: TEMP 97
--- NOTE | 2019-10-05 13:41 | P.DS ---
Discharge Date: 10/05/19 Disposition: ROUTINE DISCHARGE Discharge Condition: GOOD Reason for Admission: Abdominal pain and colitis - Problems (1) Abdominal pain Onset Date: 09/11/16 Status: Acute Qualifiers: (2) COPD exacerbation Onset Date: 11/03/16 Status: Acute (3) Diabetes mellitus Onset Date: 05/21/16 Status: Chronic Qualifiers: (4) HTN (hypertension) Onset Date: 05/21/16 Status: Chronic Qualifiers: (5) Hyperlipidemia Status: Chronic Qualifiers: (6) Hypoxia Onset Date: 11/03/16 Status: Chronic (7) Morbid obesity Onset Date: 09/11/16 Status: Chronic (8) SAMEER (obstructive sleep apnea) Status: Chronic Brief History of Present Illness: Patient is a 54-year-old female came to the hospital with abdominal pain. She was seen by look with GI physician in told a scheduled colonoscopy in 2 weeks. However, she felt like she needed to be evaluated sooner. She was told she may need cardiac clearance and because she was having continued discomfort she came to the hospital. In the ER her hemoglobin is stable. A CT of the abdomen that was seen on aortic dissection study did not reveal any significant pathology except for possible enteritis. At this time patient is clinically doing well. She does want to see a GI physician and we do have Dr. Magaña construction safety consultant today. Will have him assess the patient and if she is agreeable will continue with outpatient follow-up. Hospital Course: Patient had negative work-up. Patient is stable for discharge with outpt follow- up. Patient will see GI and cardiology for follow-up. Vital Signs/Physical Exam: Temp Pulse Resp BP Pulse Ox 97.0 F 72 18 97/54 L 90 L 10/05/19 13:40 10/05/19 13:40 10/05/19 13:40 10/05/19 13:40 10/05/19 13:40 General: Alert, In no apparent distress, Oriented x3 Laboratory Data at Discharge: WBC 5.6 K/uL (4.3-10.9) D 10/04/19 03:30 Hgb 16.2 g/dL (12.0-15.0) H 10/04/19 03:30 Hct 49.5 % (36.0-45.0) H 10/04/19 03:30 Plt Count 187 K/uL (152-406) 10/04/19 03:30 PT 12.7 SECONDS (9.5-12.5) H 10/04/19 03:30 INR 1.08 10/04/19 03:30 APTT 33.2 SECONDS (24.3-36.9) 10/04/19 03:30 Sodium 141 mmol/L (136-145) 10/04/19 03:30 Potassium 4.6 mmol/L (3.5-5.1) 10/04/19 03:30 BUN 11 mg/dL (7-18) 10/04/19 03:30 Creatinine 0.79 mg/dL (0.55-1.3) 10/04/19 03:30 Glucose 191 mg/dL (74-106) H 10/04/19 03:30 Magnesium 1.8 mg/dL (1.8-2.4) 10/03/19 15:55 Total Bilirubin 0.3 mg/dL (0.2-1.0) 10/04/19 03:30 AST 160 U/L (15-37) H 10/04/19 03:30 ALT 202 U/L (12-78) H 10/04/19 03:30 Alkaline Phosphatase 149 U/L (45-117) H 10/04/19 03:30 Lipase 90 U/L (73-393) 10/03/19 15:55 Home Medications: ALPRAZolam [Xanax*] 2 mg PO TIDP PRN 10/04/19 Albuterol Sulfate [Proair Hfa] 1 puff IH Q4HP PRN 10/04/19 Atorvastatin Calcium [Lipitor] 40 mg PO DAILY 10/04/19 Clonidine HCl [Catapres*] 0.2 mg PO TID 10/04/19 Colchicine [Colcrys *] 0.6 mg PO DAILY 10/04/19 Doxepin HCl [Sinequan*] 25 mg PO BEDTIME 10/04/19 Duloxetine HCl [Cymbalta] 30 mg PO DAILY 10/04/19 Fluticasone/Umeclidin/Vilanter [Trelegy Ellipta 100-62.5-25] 1 puff IH DAILY 02/17 Furosemide [Lasix*] 20 mg PO BID 10/04/19 Gabapentin 600 mg PO TID 10/04/19 Hum Insulin NPH/Reg Insulin Hm [Humulin 70-30 Vial] 75 unit SQ DAILY 10/04/19 Hydralazine HCl [Apresoline] 100 mg PO TID 10/04/19 Hydrocodone 5/APAP 325 [[place] 5/325*] 1 tab PO Q6HP PRN 10/04/19 Liraglutide [Victoza 2-Ze] 1.8 mg SQ DAILY 10/04/19 Metformin HCl 1,000 mg PO BIDWM 10/04/19 Metoprolol Succinate [Toprol Xl] 100 mg PO BID 10/04/19 Montelukast [Singulair*] 10 mg PO DAILY 10/04/19 Pantoprazole [Protonix Tab*] 40 mg PO BID 10/04/19 Zolpidem Tartrate [Ambien*] 10 mg PO BEDTIME 10/04/19 lisinopriL [Lisinopril] 0.5 tab PO BID 10/04/19 Cefdinir [Omnicef] 300 mg PO BID #10 capsule 10/05/19 metroNIDAZOLE [Flagyl] 500 mg PO Q8H #15 tablet 10/05/19 New Medications: Cefdinir [Omnicef] 300 mg PO BID #10 capsule metroNIDAZOLE [Flagyl] 500 mg PO Q8H #15 tablet Patient Discharge Instructions: OK TO DC IV AND DC HOME. FOLLOW-UP WITH PRIMARY CARE PROVIDER IN 1-2 WEEKS. FOLLOW-UP WITH GI IN 1-2 WEEKS;. RETURN TO THE ER IF symptoms worsen. CALL or TEXT DR. ADHIKARI AT [phone] IF ANY QUESTIONS REGARDING HOSPITAL STAY. PLEASE CALL THE FLOOR AT [phone] IF ANY MEDICATION OR NURSING QUESTIONS. Diet: ADA Activity: Fall precautions Followup: Trent Irving DO, DO [Primary Care Provider] - (call to schedule appointment ) Time spent managing pt's care (in minutes): 20
--- NOTE | 2019-10-05 13:41 | P.PN ---
Subjective Date of Service: 10/04/19 Chief Complaint: Abdominal pain and colitis Patient doing well with no c/o. Clinically feeling better Physical Examination - Vital Signs Temperature: 97.0 F Blood Pressure: 97/54 Pulse: 72 Respirations: 18 Pulse Ox (%): 90 Assessment & Plan - Problems (Diagnosis) (1) Abdominal pain Onset Date: 09/11/16 Status: Acute Qualifiers: (2) COPD exacerbation Onset Date: 11/03/16 Status: Acute (3) Diabetes mellitus Onset Date: 05/21/16 Status: Chronic Qualifiers: (4) HTN (hypertension) Onset Date: 05/21/16 Status: Chronic Qualifiers: (5) Hyperlipidemia Status: Chronic Qualifiers: (6) Hypoxia Onset Date: 11/03/16 Status: Chronic (7) Morbid obesity Onset Date: 09/11/16 Status: Chronic (8) SAMEER (obstructive sleep apnea) Status: Chronic - Plan Continue with current POC: 1. Continue with IV hydration 2. Continue with IV antibiotics 3. Continue with pain control 4. NPO 5. GI consultation; outpatient colonoscopy in 6-12 weeks 6. Serial H&H, and we will monitor CBC, BMP, LFTs and lipase along with electrolytes. 7. GI and DVT prophylaxis - Advance Directives Does patient have a Living Will: No Does patient have a Durable POA for Healthcare: No - Code Status/Comfort Care Code Status: Full Code Critical Care: No Time Spent Managing PTS Care (In Minutes): 30
[2019-10-05] MEDS ORDERED: DOXEPIN HCL 25 MG CAP PO SCH (21:00)
[2019-10-08 20:03] LABS: HBsAG Nonreactive (Nonreactive)
[2019-10-11 11:31] VITALS: BP 97/54
== END 2019-10-05 14:56 | disposition home or self-care (01) ==
LOC: ER 14:23 → ERHOLD 19:33 → 4TH 21:07
PROVIDERS: ADMIT Hospitalist; ATTEND Hospitalist
DX: R10.9 Unspecified abdominal pain (principal); E78.5 Hyperlipidemia, unspecified; E66.01 Morbid (severe) obesity due to excess calories; Z68.43 Body mass index [BMI] 50.0-59.9, adult; G47.33 Obstructive sleep apnea (adult) (pediatric); Z98.84 Bariatric surgery status; Z86.73 Personal history of transient ischemic attack (TIA), and cerebral infarction without residual deficits; J44.9 Chronic obstructive pulmonary disease, unspecified; I11.0 Hypertensive heart disease with heart failure; I50.9 Heart failure, unspecified
CPT/HCPCS: 96365; 93005; 87040 ×2; 87088; 85025 ×2; 87086; 80048; 36415; 83735; 85610 ×2; 82947 ×5; 80076; 85730; 87077; 87186; 81003; 84484; 83690; 80053; 83880; 80074; 71275; 74175; 71045; 76700; 96375; 96372; 99285; Q9967; J1650; J2270 ×4; J0696; J7030 ×3; J2930 ×3; J2405 ×2; G0378 ×3; J1815

== ENCOUNTER 2019-11-20 10:25 | Day surgery (SDC) | payer OTHER ==
--- OUTSIDE RECORDS SUMMARY | 2019-11-20 10:28 | XMS REPORT ---
:1965 [facility] Address [address] [place] [address] [address]. [address] [place] [address] Care Team Providers Name Role Phone Unavailable Unavailable Unavailable Problems This patient has no known problems. Allergies, Adverse Reactions, Alerts This patient has no known allergies or adverse reactions. Medications This patient has no known medications.
[2019-11-20] MEDS ORDERED: NA CHLORIDE 0.9% 1,000 ML ONE (10:42)
[2019-11-20] MEDS ORDERED: propofoL 200 MG/20 ML VIAL IV ONE (12:50)
[2019-11-20 13:43] VITALS: TEMP 97.8
[2019-11-20 13:44] VITALS: BP 106/75; O2SAT 94
--- NOTE | 2019-11-20 23:29 | OP ---
Surgeon: Zacarias Kaur MD Procedure Performed: Colonoscopy. Indication For Procedure: Abdominal pain, modification of bowel habits. Plan For Anesthesia: Monitored anesthesia care. Complexity: Average. Technique: After obtaining informed consent from the patient, explaining risks and complications whi ch include, but are not limited to bleeding, infection, perforation, anesthesia complication, patient was placed in left lateral position and sedation was given. Subsequently, digital rectal exam perfo rmed. Scope inserted into the rectum and carefully guided up until the terminal ileum. Then the sco pe was gradually withdrawn while carefully examining the mucosa. Scope withdrawal time was 11 minute s. Quality of prep was fair. Findings: Throughout the colon there were areas of aphthous ulcerations with patchy erythema. This appeared to be in a segmental pattern and not continuous. The rectal mucosa appeared normal. Right and left-sided biopsies taken. Also biopsies were taken from the cecum, which appeared to have a lit tle more erythema. An 8 mm sessile polyp was seen in the transverse colon, which was removed by hot snare polypectomy. The terminal ileum was difficult to intubate, however, quick fleeting view was ob tained, which did reveal ulceration in the terminal ileum. Biopsies could not be taken though from t his area. Complications: None. Postoperative Diagnosis: Segmental colitis with aphthous ulceration, terminal ileum ulceration, colo n polyp. These findings are suspicious for Crohn disease. Plan: 1.Await pathology results. 2.Follow up in the GI Clinic. 3.We will also need upper workup as well as small bowel workup and capsule endoscopy for further deb luation and management. US/MODL Voice ID: [id number] Report ID: [id number]
== END 2019-11-20 13:46 | disposition home or self-care (01) ==
LOC: OR 10:25
PROVIDERS: ATTEND Internal Medicine Gastroenterology
PROC: 0DBH8ZX Excision of Cecum, Via Natural or Artificial Opening Endoscopic, Diagnostic (ICD-10-PCS; 2019-11-20)
PROC: 0DBF8ZX Excision of Right Large Intestine, Via Natural or Artificial Opening Endoscopic, Diagnostic (ICD-10-PCS; 2019-11-20)
PROC: 0DBG8ZX Excision of Left Large Intestine, Via Natural or Artificial Opening Endoscopic, Diagnostic (ICD-10-PCS; 2019-11-20)
PROC: 0DBL8ZX Excision of Transverse Colon, Via Natural or Artificial Opening Endoscopic, Diagnostic (ICD-10-PCS; principal; 2019-11-20 12:30)
DX: K51.80 Other ulcerative colitis without complications (principal); K63.3 Ulcer of intestine; K63.5 Polyp of colon; K21.9 Gastro-esophageal reflux disease without esophagitis; K76.0 Fatty (change of) liver, not elsewhere classified; E11.9 Type 2 diabetes mellitus without complications; I10 Essential (primary) hypertension; E66.01 Morbid (severe) obesity due to excess calories; Z68.43 Body mass index [BMI] 50.0-59.9, adult; Z80.0 Family history of malignant neoplasm of digestive organs
CPT/HCPCS: 82947; 88305; 45385; 45380; J2704; J7030

== ENCOUNTER 2019-12-11 17:31 | Emergency (ER) | payer OTHER ==
--- OUTSIDE RECORDS SUMMARY | 2019-12-11 17:32 | XMS REPORT ---
:1965 [facility] Address [address] [place] [address] Care Team Providers Name Role Phone Unavailable Unavailable Unavailable Payers Payer Name Policy Type Policy Number Effective Date Expiration Date Problems This patient has no known problems. Allergies, Adverse Reactions, Alerts Allergy Name Allergy Status Severity Reaction(s) Onset Inactive Treating Comments Type Date Date Clinician doxycycline DA Active U 2-06 00:00: 00 metoclopramide DA Active U 2-06 00:00: 00 Medications This patient has no known medications. Results Test Description Test Time Test Comments Text Results Atomic Results Result Comments GLUCOSE BEDSIDE TESTING 2019-12-11 06:17:00 Test Item Value Reference Range Comments GLUCOSE BEDSIDE TESTING (test code=GLUBED) 170 mg/dL 70-110 UR HCG [id number] 11:12:00 Test Item Value Reference Range Comments UR HCG QUAL (test code=HCGQLU) NEGATIVE NEGATIVE
--- NOTE | 2019-12-11 20:44 | ER ---
Nurse's Notes [facility] Name: Maria De Jesus Acosta Age: 54 yrs Sex: Female : 1965 Arrival Date: 12/11/2019 Time: 17:34 Bed 14 Private MD: Diagnosis: Presentation: 12/11 17:44 Presenting complaint: Patient states: Bloody stool since [place], I have been ca1 seeing Dr. Harper about this. But for the past few days, I have been dizzy and SOB. Transition of care: patient was not received from another setting of care. Onset of symptoms was December 11, 2019. Risk Assessment: Do you want to hurt yourself or someone else? Patient reports no desire to harm self or others. Initial Sepsis Screen: Does the patient meet any 2 criteria? No. Patient's initial sepsis screen is negative. Does the patient have a suspected source of infection? No. Patient's initial sepsis screen is negative. Care prior to arrival: None. 17:44 Method Of Arrival: Ambulatory ca1 17:44 Acuity: EMERALD 3 ca1 SOAKER HELPER: 17:50 LMP N/A - Hysterectomy ca1 Historical: - Allergies: 17:50 Doxycycline; ca1 17:50 metoclopramide HCl; ca1 17:50 orange juice; ca1 - Home Meds: 17:50 alprazolam 2 mg Oral tab 3 times per day [Active]; Ambien 10 mg Oral tab [Active]; ca1 amlodipine 10 mg tab 1 tab once daily [Active]; atorvastatin 40 mg Oral tab 1 tab once daily [Active]; furosemide 20 mg Oral tab 1 tab once daily [Active]; gabapentin 600 mg Oral tab 1 tab 3 times per day [Active]; hydralazine 100 mg Oral tab [Active]; Humulin 70/30 100 unit/mL (70-30) Sub-Q susp [Active]; Hydrochlorothiazide Oral once daily [Active]; lisinopril 40 mg Oral tab twice a day [Active]; metoprolol tartrate 100 mg Oral tab 1 tab 2 times per day [Active]; metformin 1,000 mg Oral tab 2 times per day [Active]; clonidine HCl 0.2 mg Oral tab 1 tab 3 times per day [Active]; Norvasc Oral once daily [Active]; Zoloft 25 mg Oral tab 1 tab once daily [Active]; Victoza 3-Ze 0.6 mg/0.1 mL (18 mg/3 mL) subcutaneous pnij [Active]; [place] 7.5-325 mg Oral tab 1 tab every 4 hours [Active]; - PMHx: 17:50 Asthma; CHF; COPD; Diabetes - NIDDM; Hypertension; Crohn's; ca1 - Immunization history:: Adult Immunizations up to date, Flu vaccine is not up to date. - Coronavirus screen:: The patient has NOT traveled to [place], [place], or [place] in the past 14 days. The patient has NOT had contact with known/suspected case of Coronavirus?. - Social history:: Smoking status: Patient denies any tobacco usage or history of. - Ebola Screening: : Patient negative for fever greater than or equal to 101.5 degrees Fahrenheit, and additional compatible Ebola Virus Disease symptoms Patient denies exposure to infectious person Patient denies travel to an Ebola-affected area in the 21 days before illness onset No symptoms or risks identified at this time. Vital Signs: 17:50 BP 135 / 82; Pulse 92; Resp 18 S; Temp 97.2(O); Pulse Ox 95% on R/A; Weight 147.87 kg ca1 (R); Height 5 ft. 3 in. (160.02 cm) (R); Pain 9/10; 17:50 Body Mass Index 57.75 (147.87 kg, 160.02 cm) ca1 ED Course: 17:34 Patient arrived in ED. rg4 17:46 Triage completed. ca1 17:50 Arm band placed on right wrist. ca1 19:24 Stew Preciado MD is Attending Physician. tw4 20:01 Lee Santos, RN is Primary Nurse. jb4 Administered Medications: No medications were administered Outcome: 20:03 Patient left the ED. jb4 Signatures: Blanca Turk 4 Lee Santos RN JCARLOS [facility] Stew Preciado MD MD [facility] Chula Carlisle RN RN ca1
[2019-12-13 19:34] VITALS: BP 135/82; TEMP 97.2; O2SAT 95
== END 2019-12-11 20:03 | disposition left against medical advice (07) ==
LOC: ER 17:31
DX: Z53.21 Procedure and treatment not carried out due to patient leaving prior to being seen by health care provider (principal)
CPT/HCPCS: 99281

== ENCOUNTER 2021-04-02 16:12 | Emergency (ER) | payer OTHER ==
--- OUTSIDE RECORDS SUMMARY | 2021-04-02 16:26 | XMS REPORT | Continuity of Care Document ---
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 00:00:00 Vaccines (1 - Tdap) Medical Branch [code = DTaP,Tdap,and Td Vaccines (1 - Tdap)] Future Scheduled 1977 Microalbumin [facility] Test 00:00:00 measurement, urine, Medical Branch quantitative (procedure) [code = 306030506] Encounters Start End Encounter Admission Attending Care Care Encounter Source Date/Time Date/Time Type Type Clinicians Facility Department ID 2021-03-26 2021-03-26 Rohith Sheriff [facility] [id number] 00:00:00 00:00:00 [facility] [id number] [place] [id number] Professio [phone] [place] [address] [address] 2021-03-25 2021-03-25 [facility] [id number] 00:00:00 00:00:00 [facility] [id number] [place] [id number] Professio [phone] [place] [address] [address] 2021-03-18 2021-03-18 [facility] [id number] 00:00:00 00:00:00 Randall Elizabeth [id number] [place] [id number] Professio [phone] [address] 2021-03-13 2021-03-13 [facility] [id number] 00:00:00 00:00:00 [facility] [id number] [place] [id number] Professio [phone] [place] [address] [address] 2018-12-09 2018-12-09 Outpatient AJMIR Casiano [id number] 14:45:00 14:45:00 John 03 Yonathan 2018-04-04 2018-04-04 Outpatient Kimberly Ng [facility] [id number] 12:57:00 23:59:00 Han 2018-03-21 2018-03-21 Outpatient Kimberly Ng [facility] [id number] 14:01:00 23:59:00 Han 2015-11-08 2015-11-08 Outpatient Guerrero, MHSL SL [id number] 12:06:00 15:20:00 Sheilendra 00 Glen 2015-10-24 2015-10-24 Outpatient Guerrero, MHOIP OIP [id number] 09:50:00 23:59:00 Sheilendra 00 Glen Results Test Description Test Time Test Comments Results Result Comments Source SURG 2020-08-26 14:57:00 Test Item Value Reference Range Interpretation Comme nts SURG RUN DATE: (test 08/26/20 H [facility] PAGE 1 RUN TIME: 2682 code = Specimen Inquiry RUN USER: INTERFACE SURG) PATIENT: PEPE MACK LOC: ANDI #: [id number] AGE/SX: 55/ F ROOM: RE08/23/20REG DR: Tapan Harper MD : 69 BED: DIS: STATUS: DEP SDC TLOC: SPEC #: [id number] RECD: STATUS: KRISTIN [place] #: [id number] AN: 08/23/[address]: Tapan Harper MD ENTERED: 08/23/20 SP TYPE: SURG OTHR DR: Trent Irving DO ORDERED: SURG PATH LVL 02/01 COPIES TO: Trent Irving DO [address] [place] [address] Tapan Harper MD [address] [place] [address] HISTOLOGY: TI SSUE ID BLK PCS DIANE LEV PROCEDURE DISPOSITION ____ ___ ___ ___ COLON, NOS A 1 2 COLO N, NOS B 1 2 COLON, NOS C 1 2 PROCEDURES: SURG PATH LVL 4 (08/23/20) TISSUES: A. COLON, NOS - RIGHT COLON BIO PSY B. COLON, NOS - MID COLON BIOPSY C. COLON, NOS - LEFT COLON BIOPSY CLINICA L HISTORY COLON ULCER - K63.3; ILEITIS - K52.9; PAIN - R10.84; K59.00 CPT CODES CPT CODE (S): 17178W7 , , , , , , FINAL DIAGNOSIS A. Colon, right, biopsy: COLONIC MUCOSA WITH NO PATHOLOGIC DIAGNOSIS B. Colon, m id, biopsy: COLONIC MUCOSA WITH NO PATHOLOGIC DIAGNOSIS CONTINUED ON NEXT PAGE RUN DATE: 08/26/20 H [facility] - LAB PAGE 2 RUN TIME: 1457 Specimen Inquiry RUN USER: INTERFACE SPEC #: [facility]:[id number] PATIENT: PEPE MACK #[id number] (Continued) FINAL DIAGNOSIS (Continued) C. Colon, left, biopsy: COLONIC MUCOSA WITH NO PATHOLOGIC DIAGNOSIS GROSS DESCRIPTION A. Right colon biopsy. Received in formalin are two vazquez tissue fragments, 0.2 cm each, all as A. B. Mid colon biopsy. Received in formalin are two vazquez tissue fragments, 0. 2 cm each, all as B. C. Left colon biopsy. Received in formalin are two vazquez tissue fragments , 0.2 cm each, all as C. ba/nr Grossing performed at [facility] Pathology, [address], [address], [place] [address]. Grant Writer: Leeroy Jimenes M.D. MICROSCOPIC DESCRIPTION A. Right colon biopsy. Sections demonstrate colonic mucosa with glands demonstrating no evidence of increased acute inflammation or chronic architectural distortion. No dysplasia or malignancy is i dentified. B. Mid colon biopsy. Sections demonstrate colonic mucosa with no evidence of increa sed acute inflammation or chronic architectural distortion. No dysplasia or malignancy is identified. C. Left colon biopsy. Sections demonstrate colonic mucosa with glands demonstrating no in creased acute inflammation or chronic architectural distortion. No dysplasia or malignancy is identified. Signed SIGNATURE ON FILE Carlos Mendoza 08/26/20 1457 END OF REPORT GLUCOSE BEDSIDE [id number] 08:29:00 Test Item Value Reference Range Interpretation Comments GLUCOSE BEDSIDE TESTING (test code 156 mg/dL 70-110 H = GLUBED) BASIC METABOLIC [id number] 12:40:00 Test Item Value Reference Range Interpretation Comments SODIUM (test code = NA) 138 mmol/L 134-147 N POTASSIUM (test code = 3.9 mmol/L 3.4-5.0 N K) CHLORIDE (test code = 103 mmol/L 100-108 N CL) CARBON DIOXIDE (test 28 mmol/L 21-32 N code = CO2) ANION GAP (test code = 7.0 GAP calc 4.0-15.0 N GAP) GLUCOSE (test code = 166 MG/DL 70-110 H GLU) BLOOD UREA NITROGEN 8 MG/DL 7-18 N (test code = BUN) GLOMERULAR FILTRATION >=60 max estimate >60 RATE (test code = GFR) estGFR CREATININE (test code = 0.7 MG/DL 0.6-1.0 N CREAT) CALCIUM (test code = CA) 9.0 MG/DL 8.5-10.1 N BASIC METABOLIC [id number] 12:37:00 Test Item Value Reference Range Interpretation Comments SODIUM (test code = NA) 138 mmol/L 134-147 N POTASSIUM (test code = K) 3.9 mmol/L 3.4-5.0 N CHLORIDE (test code = CL) 103 mmol/L 100-108 N CARBON DIOXIDE (test code = CO2) 28 mmol/L 21-32 N ANION GAP (test code = GAP) 7.0 GAP calc 4.0-15.0 N GLUCOSE (test code = GLU) 166 MG/DL 70-110 H BLOOD UREA NITROGEN (test code = 8 MG/DL 7-18 N BUN) GLOMERULAR FILTRATION RATE (test estGFR >60 code = GFR) CREATININE (test code = CREAT) MG/DL 0.6-1.0 CALCIUM (test code = CA) 9.0 MG/DL 8.5-10.1 N COVID 19 INHOUSE [id number] 12:37:00 Test Item Value Reference Range Interpretation Comments COVID 19 INHOUSE AG NEGATIVE Negative Per manu facturer, (test code = negative result s should [id number]) be treated aspr esumptive and, if inconsi stent with clinical signs andsymptoms or necessary for patient man agement, should betested with an alternative mol ecular assay. Negative resultsdo not preclude SA RS-CoV-2 infection and s hould not be usedas the s ole basis for patient man agement decisions. Neg ative results should be considered in t he context of apatient's r ecent exposures, hist ory, presence of cli nicalsigns and symptoms co nsistent with COVID-19. CBC W/AUTO [id number] 12:23:00 Test Item Value Reference Range Interpretation Comments WHITE BLOOD CELL (test code = 8.1 K/mm3 3.5-11.0 N WBC) RED BLOOD CELL (test code = 5.04 M/mm3 4.70-6.10 N RBC) HEMOGLOBIN (test code = HGB) 15.3 G/DL 10.4-14.9 H HEMATOCRIT (test code = HCT) 48.9 % 31.5-44.1 H MEAN CELL VOLUME (test code = 97.0 Fl 84.5-98.6 N MCV) MEAN CELL HGB (test code = MCH) 30.4 pg 27.0-34.2 N MEAN CELL HGB CONCETRATION 31.3 G/DL 31.5-34.0 L (test code = MCHC) RED CELL DISTRIBUTION WIDTH 12.9 SD 11.5-14.5 N (test code = RDW) PLATELET COUNT (test code = 204 K/mm3 150-450 N PLT) MEAN PLATELET VOLUME (test code 10.60 fL 7.0-10.5 H = MPV) NEUTROPHIL % (test code = NT%) 58.4 % 40-76 N IMMATURE GRANULOCYTE % (test 0.4 % 0.0-5.0 N code = IG%) LYMPHOCYTE % (test code = LY%) 31.7 % 20.5-51.1 N MONOCYTE % (test code = MO%) 7.6 % 1.7-9.3 N EOSINOPHIL % (test code = EO%) 1.5 % 0.0-6.0 N BASOPHIL % (test code = BA%) 0.4 % 0.0-2.0 N NUCLEATED RBC % (test code = 0.0 /100WBC% 0.0-1.0 N NRBC%) NEUTROPHIL # (test code = NT#) 4.8 K/mm3 1.8-7.6 N IMMATURE GRANULOCYTE # (test 0.03 x10 3/uL 0.00-0.03 N code = IG#) LYMPHOCYTE # (test code = LY#) 2.6 K/mm3 0.6-3.2 N MONOCYTE # (test code = MO#) 0.6 K/mm3 0.3-1.1 N EOSINOPHIL # (test code = EO#) 0.1 K/mm3 0.0-0.4 N BASOPHIL # (test code = BA#) 0.0 K/mm3 0.0-0.1 N NUCLEATED RBC # (test code = 0.0 K/mm3 0.0-0.1 N NRBC#) MANUAL DIFF REQUIRED (test code NO DIFF/SCN CRITERIA = MDRICHARDSON) [id number] 15:34:00 RUN DATE: 12/13/19 [facility] PAGE 1 RUN TIME: 1535 Specimen Inquiry RUN USER: INTERFACE PATIENT: PEPE MACK LOC: GLADYS U #: [id number] AGE/SX: 54/F ROOM: RE12/11/19[facility] DR: Zacarias Kaur MD : 69 BED: DIS: STATUS: [facility] TLOC: SPEC #: [id number] RECD: 12/11/19 STATUS: KRISTIN RELang #: [id number] AN: 12/11/19 [facility] DR: Zacarais Kaur MD ENTERED: 12/11/19 SP TYPE: SURG OTHR DR: Trent Irving DO ORDERED: SURG PATH LVL 01/31 COPIES TO: Trent Irving DO [address] [place] [address] Zacarias Kaur MD [address] [place] [address] HISTOLOGY: TISSUE ID BLK PCS DIANE LEV PROCEDURE DISPOSITION ____ ___ ___ ___ GASTRIC ANTRUM A 1 3 GASTRIC ANTRUM B 1 3 PROCEDURES: SURG PATH LVL 4 (12/11/19-1058) TISSUES: A. GASTRIC ANTRUM - GASTRIC BIOPSY B. GASTRIC ANTRUM - DISTAL GASTRIC BIOPSY CLINICAL HISTORY EPIGASTRIC PAIN -R10.13; NAUSEA -R11.0; VOMITING -R11.10 CPT CODES CPT CODE(S): 08222H3 , , , , , , FINAL DIAGNOSIS A. Stomach, biopsy: MILD CHRONIC GASTRITIS NEGATIVE FORINTESTINAL METAPLASIA, DYSPLASIA, OR MALIGNANCY NEGATIVE FOR HELICOBACTER PYLORI ORGANISMS B. Stomach, distal, biopsy: MILD CHRONIC GASTRITIS NEGATIVE FOR INTESTINAL METAPLASIA, DYSPLASIA, OR MALIGNANCY CONTINUED ON NEXT PAGE RUN DATE: 12/13/19 [facility] PAGE 2 RUN TIME: 1535 Specimen Inquiry RUN USER: INTERFACE SPEC #: [id number] PATIENT: TRACY MACKA #[id number] (Continued)---- -------- FINAL DIAGNOSIS (Continued) NEGATIVE FOR HELICOBACTER PYLORI ORGANISMS GROSS DESCRIPTION A. Gastric biopsy. Received in formalin is a vazquez tissue fragment, 0.5 cm, all as A.B. Distal gastric biopsy. Received in formalin is a vazquez tissue fragment, 0.3 cm, all as B. shivam/nr Grossing performed at [facility] Pathology, [address] [place] [address], [address], [place] [address]. Grant Writer: Leeroy Jimenes M.D. MICROSCOPIC DESCRIPTION A. Gastric biopsy. Sections demonstrate gastric mucosa with mild chronic inflammation. No dysplasia or malignancy is id entified. No evidence of intestinal metaplasia is seen. No features of Helicobacter pylori organisms are identified. B. Distal gastric biopsy. Sections show gastric mucosa with mild chronic inflammation. No dysplasia or malignancy is identified. No evidence of intestinal metaplasiais seen. No features of Helicobacter pylori organisms are identified. Signed SIGNATURE ON FILE Carlos Mendoza Julissa 12/13/19 1534 END OF REPORT GLUCOSE BEDSIDE [id number] 06:17:00 Test Item Value Reference Range Interpretation Comments GLUCOSE BEDSIDE TESTING (test code 170 mg/dL 70-110 H = GLUBED) UR HCG [id number] 11:12:00 Test Item Value Reference Range Interpretation Comments UR HCG QUAL (test code = HCGQLU) NEGATIVE NEGATIVE
[2021-04-02 17:09] LABS: Absolute Lymphocytes (CBC) 2.5 K/uL (0.7-4.9); Basophils % 1.1 % (0-1.3); Hematocrit 48.4 % (36.0-45.0); Lymphocytes % 30.4 % (15.3-44.8); MPV 9.3 fL (7.6-11.3); RBC Red Blood Cell Count 5.22 M/uL (3.86-4.86)
[2021-04-02 17:11] LABS: Protime INR 1.09
[2021-04-02 17:30] LABS: ALT/SGPT 53 U/L (12-78); AST/SGOT 38 U/L (15-37); Albumin 3.6 g/dL (3.4-5.0); Alkaline Phosphatase 168 U/L (45-117); BUN Blood Urea Nitrogen 13 mg/dL (7-18); Bicarbonate 31 mmol/L (21-32); Bilirubin Direct < 0.1 mg/dL (0-0.2); Bilirubin Total 0.3 mg/dL (0.2-1.0); Glucose Level 314 mg/dL (74-106); Magnesium 1.7 mg/dL (1.8-2.4); NT PRO-BNP 28 pg/mL (<125); Potassium 3.6 mmol/L (3.5-5.1); Protein, Total 8.2 g/dL (6.4-8.2); Sodium Level 138 mmol/L (136-145); Troponin (Emerg Dept Use Only) < 0.02 ng/mL (0.0-0.045)
--- NOTE | 2021-04-02 17:37 | RAD REPORT ---
EXAM DESCRIPTION: RAD - Chest Single View - 04/02/2021 5:23 pm CLINICAL HISTORY: CHEST PAIN COMPARISON: Portable October 2019 TECHNIQUE: AP portable chest image was obtained 04/02/2021 5:23 pm . FINDINGS: No peripheral mass consolidation. No significant failure or volume overload. Exam has sign ificant limitations due to low lung volumes and very large body habitus. Mild edema or infiltrate cou ld be masked. Heart and vasculature are normal. No measurable pleural effusion and no pneumothorax. N o acute bony abnormality seen. No acute aortic findings suspected. IMPRESSION: No focal mass or consolidation. Exam is limited due to shallow inspiration and large body habitus. Mild interstitial edema or infiltr ate could be masked.
--- NOTE | 2021-04-02 18:31 | RAD REPORT ---
EXAM DESCRIPTION: CT - Chest For Pe Angio - 04/02/2021 6:25 pm CLINICAL HISTORY: SOB COMPARISON: Chest Angio dated 02/15/2018; Chest Single View dated 04/02/2021 TECHNIQUE: Dynamically enhanced 3 mm thick images of the chest were obtained during administration o f approximately 150mL Isovue 370 IV contrast. Coronal and oblique MIP reconstruction images were gene rated and reviewed. Exam utilizes a protocol to evaluate the pulmonary arterial tree. All CT scans are performed using dose optimization technique as appropriate and may include automated exposure control or mA/KV adjustment according to patient size. FINDINGS: No pulmonary emboli are identified. Far peripheral branch assessment is limited due to co ntrast density, motion and large body habitus. Emboli are not suspected. The aorta as imaged shows no acute or suspicious finding. No pericardial thickening or effusion. No infiltrate or mass in the lung parenchyma. No pleural effusion or pleural thickening. No mediastinal or hilar suspicious masses. No chest wall masses or abnormal axillary lymphadenopathy. IMPRESSION: No pulmonary emboli identified. No other significant or suspicious findings.
[2021-04-02] MEDS ORDERED: METHYLPREDNISOLONE 125 MG INJ ONE (18:36)
[2021-04-02] MEDS ORDERED: IPRATROPIUM BROM 0.5MG/2.5ML ONE (18:37)
[2021-04-02] MEDS ORDERED: ALBUTEROL 2.5 MG/3 ML NEB SOL ONE (18:37)
--- NOTE | 2021-04-02 18:58 | EDPHYS ---
Physician Documentation [facility] Name: Maria De Jesus Acosta Age: 56 yrs Sex: Female : 1965 Arrival Date: 04/02/2021 Time: 16:26 Bed 7 Private MD: ED Physician Stew Preciado HPI: 04/02 18:07 This 56 yrs old Female presents to ER via Ambulatory with complaints of Chest tw4 Pain. 18:07 The patient or guardian reports chest pain that is located primarily in the anterior tw4 chest wall. Onset: today. The pain does not radiate. Associated signs and symptoms: Pertinent positives: shortness of breath, Pertinent negatives: abdominal pain, cough, diaphoresis, dizziness, headache, lower extremity pain, lower extremity swelling, lightheadedness. The chest pain is described as dull. Duration: The patient or guardian reports a single episode. Modifying factors: The symptoms are alleviated by application of supplemental oxygen, the symptoms are aggravated by exertion. Severity of pain: At its worst the pain was moderate in the emergency department the pain is unchanged. Historical: - Allergies: 16:27 Doxycycline; ph 16:27 metoclopramide HCl; ph 16:27 orange juice; ph - PMHx: 16:27 Asthma; CHF; COPD; Crohn's; Diabetes - NIDDM; Hypertension; ph - Social history:: Smoking status: Patient denies any tobacco usage or history of. ROS: 18:07 MS/Extremity: Negative for injury and deformity, Skin: Negative for injury, rash, and tw4 discoloration, Neuro: Negative for headache, weakness, numbness, tingling, and seizure. 18:07 Cardiovascular: Positive for chest pain, Negative for edema, orthopnea, palpitations, paroxysmal nocturnal dyspnea, acute changes. 18:07 Respiratory: Positive for shortness of breath. Exam: 18:07 Constitutional: This is a well developed, well nourished patient who is awake, alert, tw4 and in no acute distress. Head/Face: Normocephalic, atraumatic. Chest/axilla: Normal chest wall appearance and motion. Nontender with no deformity. No lesions are appreciated. Cardiovascular: Regular rate and rhythm with a normal S1 and S2. No gallops, murmurs, or rubs. Normal PMI, no JVD. No pulse deficits. Respiratory: Lungs have equal breath sounds bilaterally, clear to auscultation and percussion. No rales, rhonchi or wheezes noted. No increased work of breathing, no retractions or nasal flaring. Abdomen/GI: Soft, non-tender, with normal bowel sounds. No distension or tympany. No guarding or rebound. No evidence of tenderness throughout. Back: No spinal tenderness. No costovertebral tenderness. Full range of motion. Skin: Warm, dry with normal turgor. Normal color with no rashes, no lesions, and no evidence of cellulitis. MS/ Extremity: Pulses equal, no cyanosis. Neurovascular intact. Full, normal range of motion. Neuro: Awake and alert, GCS 15, oriented to person, place, time, and situation. Cranial nerves II-XII grossly intact. Motor strength 5/5 in all extremities. Sensory grossly intact. Cerebellar exam normal. Normal gait. Vital Signs: 16:27 BP 165 / 77; Pulse 76; Resp 20; Temp 97.9; Pulse Ox 95% on R/A; Weight 151.05 kg; ph Height 5 ft. 3 in. (160.02 cm); Pain 7/10; 17:27 Weight 149.8 kg (M); em1 18:00 BP 145 / 71; Pulse 72; Resp 16; Pulse Ox 99% on R/A; em 18:49 BP 134 / 69; Pulse 81; Resp 16; Pulse Ox 98% on Nebulizer Mask; em 19:35 BP 132 / 68; Pulse 78; Resp 19; Temp 98; Pulse Ox 99% ; ea 17:27 Body Mass Index 58.50 (149.80 kg, 160.02 cm) em1 MDM: 16:50 Patient medically screened. tw4 18:07 Differential diagnosis: acute myocardial infarction, anxiety, coronary artery disease tw4 pericarditis, pneumonia, pulmonary embolus, stable angina. HEART Score: History: Moderately Suspicious (1), ECG: Non specific repolarization disturbance / LBTB / PM (1), Age: > 45 and < 65 years (1), Risk Factors: No Risk Factors Known (0), Troponin: < or = 1 x Normal Limit (0), Total Score = 3. The patient was given aspirin in the Emergency Department. Data reviewed: vital signs, nurses notes. Data interpreted: Pulse oximetry: Interpretation: normal. Test interpretation: by ED physician or midlevel provider: ECG, plain radiologic studies. Counseling: I had a detailed discussion with the patient and/or guardian regarding: the historical points, exam findings, and any diagnostic results supporting the discharge/admit diagnosis, the presence of at least one elevated blood pressure reading (>120/80) during this emergency department visit, lab results, radiology results. 04/02 16:48 Order name: Basic Metabolic Panel; Complete Time: 18:04 04/02 18:05 Interpretation: Normal except: GLUC 314. 04/02 16:48 Order name: CBC with Diff; Complete Time: 18:04 em 04/02 18:06 Interpretation: Normal except: RBC 5.22; HGB 15.9; HCT 48.4. 04/02 16:48 Order name: LFT's; Complete Time: 18:04 em 04/02 18:06 Interpretation: Normal except: AST 38; ALK 168; GLOB 4.6; A/G 0.8. 04/02 16:48 Order name: Magnesium; Complete Time: 18:04 04/02 18:06 Interpretation: Abnormal: MG 1.7. 04/02 16:48 Order name: NT PRO-BNP; Complete Time: 18:04 04/02 18:06 Interpretation: Within normal limits: NT PRO-BNP 28. 04/02 16:48 Order name: PT-INR; Complete Time: 18:04 04/02 18:06 Interpretation: Normal except: PT 12.6. 04/02 16:48 Order name: Troponin (emerg Dept Use Only); Complete Time: 18:04 04/02 18:06 Interpretation: Within normal limits: TROPED < 0.02. 04/02 16:48 Order name: XRAY Chest (1 view); Complete Time: 18:04 04/02 16:48 Order name: EKG; Complete Time: 16:49 04/02 16:48 Order name: Cardiac monitoring; Complete Time: 16:48 04/02 16:56 Order name: CT Chest For PE Angio; Complete Time: 18:56 [facility] 04/02 16:48 Order name: EKG - Nurse/Tech; Complete Time: 16:49 04/02 16:48 Order name: IV Saline Lock; Complete Time: 16:49 em 04/02 16:48 Order name: Labs collected and sent; Complete Time: 16:49 em 04/02 16:48 Order name: O2 Per Protocol; Complete Time: 16:49 em 04/02 16:48 Order name: O2 Sat Monitoring; Complete Time: 16:48 em EC:07 Rate is 74 beats/min. Rhythm is regular. QRS [place] is Normal. MO interval is normal. QRS tw4 interval is normal. QT interval is normal. No Q waves. T waves are Flattened in leads V3, V4, V5, V6. No ST changes noted. Clinical impression: NSR w/ Non-specific ST/T Changes. Interpreted by me. Reviewed by me. Administered Medications: 18:33 Drug: DuoNeb (albuterol 2.5 mg, ipratropium 0.5 mg) (3:1) (2.5 mg - 0.5 mg) 3 ml Route: em Nebulizer; 18:51 Follow up: Response: No adverse reaction; Marked relief of symptoms em 18:35 Drug: SOLU-Medrol (methylPrednisoLONE) 125 mg Route: IVP; Site: right antecubital; em 18:51 Follow up: Response: No adverse reaction em Disposition: 04/02/21 19:45 Patient has left against medical advice. Impression: Chest pain, unspecified. - Patients states they are going to Home. - Condition is Stable. Follow up: Private Physician; When: As needed. - Problem is new. - Symptoms have improved. Signatures: Dispatcher [employer] [facility] Ronnie Colunga RN RN Anais Duarte RN RN Nguyen Ovalles RN RN Stew Preciado MD MD tw4 Corrections: (The following items were deleted from the chart) 19:25 16:57 CORONAVIRUS+MR.LAB.BRZ ordered. [facility] EDNY 19:45 18:58 Hospitalization Ordered by Rafael Huggins for Observation. Preliminary diagnosis iw is Chronic obstructive pulmonary disease with (acute) exacerbation; Chest pain, unspecified. Bed requested for Telemetry/MedSurg (observation). Status is Observation. Condition is Stable. Problem is an ongoing problem. Symptoms have improved. tw4
--- NOTE | 2021-04-02 18:58 | ER ---
Nurse's Notes [facility] Name: Maria De Jesus Acosta Age: 56 yrs Sex: Female : 1965 Arrival Date: 04/02/2021 Time: 16:26 Bed 7 Private MD: Diagnosis: Chest pain, unspecified Presentation: 04/02 16:27 Chief complaint: Patient states: Mid-sternal chest pain radiating to L arm and back ph that began this morning while sleeping. Also reports SOB and nausea. Coronavirus screen: Client denies travel out of the [place] in the last 14 days. Ebola Screen: No symptoms or risks identified at this time. Initial Sepsis Screen: Does the patient meet any 2 criteria? No. Patient's initial sepsis screen is negative. Does the patient have a suspected source of infection? No. Patient's initial sepsis screen is negative. Risk Assessment: Do you want to hurt yourself or someone else? Patient reports no desire to harm self or others. Onset of symptoms was April 02, 2021. 16:27 Method Of Arrival: Ambulatory ph 16:27 Acuity: EMERALD 3 ph Historical: - Allergies: 16:27 Doxycycline; ph 16:27 metoclopramide HCl; ph 16:27 orange juice; ph - PMHx: 16:27 Asthma; CHF; COPD; Crohn's; Diabetes - NIDDM; Hypertension; ph - Social history:: Smoking status: Patient denies any tobacco usage or history of. Screenin:40 Abuse screen: Denies threats or abuse. Nutritional screening: No deficits noted. em Tuberculosis screening: No symptoms or risk factors identified. Fall Risk None identified. Assessment: 16:50 General: Appears uncomfortable, Behavior is calm, cooperative, appropriate for age. em Pain: Complains of pain in chest Pain radiates to back and left arm Pain began this morning at 0500. Neuro: Level of Consciousness is awake, alert, obeys commands, Oriented to person, place, time, situation. Cardiovascular: Capillary refill < 3 seconds Patient's skin is warm and dry. Respiratory: Reports shortness of breath at rest Airway is patent Respiratory effort is even, unlabored, Respiratory pattern is regular, symmetrical, Breath sounds are clear bilaterally. Denies cough. GI: Patient currently denies nausea, vomiting. Derm: Skin is intact, is healthy with good turgor, Skin is pink, warm \T\ dry. Musculoskeletal: Capillary refill < 3 seconds, Range of motion: intact in all extremities. 18:20 Reassessment: Patient appears in no apparent distress at this time. pt wheeled to MT em via stretcher. 19:38 Reassessment: Patient and/or family updated on plan of care and expected duration. Pain ea level reassessed. Patient is alert, oriented x 3, equal unlabored respirations, skin warm/dry/pink. Pt reports she does not want to stay. Hospitalist notified. Pt requesting IV to be taken out, verbalized the understanding of importance to stay in hospital for treatment. Pt refused to stay. IV discontinued, catheter intact pressure dressing applied. Pt signed AMA paperwork. Left ED via wheelchair pt accompanied by family. Vital Signs: 16:27 BP 165 / 77; Pulse 76; Resp 20; Temp 97.9; Pulse Ox 95% on R/A; Weight 151.05 kg; ph Height 5 ft. 3 in. (160.02 cm); Pain 7/10; 17:27 Weight 149.8 kg (M); em1 18:00 BP 145 / 71; Pulse 72; Resp 16; Pulse Ox 99% on R/A; em 18:49 BP 134 / 69; Pulse 81; Resp 16; Pulse Ox 98% on Nebulizer Mask; em 19:35 BP 132 / 68; Pulse 78; Resp 19; Temp 98; Pulse Ox 99% ; ea 17:27 Body Mass Index 58.50 (149.80 kg, 160.02 cm) em1 ED Course: 16:26 Patient arrived in ED. ph 16:30 Triage completed. ph 16:39 Ronnie Colunga, RN is Primary Nurse. em 16:40 Patient has correct armband on for positive identification. Placed in gown. Bed in low em position. Call light in reach. Adult w/ patient. monitoring specialist on. Pulse ox on. NIBP on. 16:40 Patient maintains SpO2 saturation greater than 95% on room air. em 16:49 Initial lab(s) drawn, by me, sent to lab. Inserted saline lock: 20 gauge in right ca1 forearm, using aseptic technique. Blood collected. 16:50 Stew Preciado MD is Attending Physician. tw4 16:50 Arm band placed on. em 17:21 XRAY Chest (1 view) In Process Unspecified. EDMS 18:25 CT Chest For PE Angio In Process Unspecified. EDMS 18:57 Rafael Huggins is Hospitalizing Provider. tw4 Administered Medications: 18:33 Drug: DuoNeb (albuterol 2.5 mg, ipratropium 0.5 mg) (3:1) (2.5 mg - 0.5 mg) 3 ml Route: em Nebulizer; 18:51 Follow up: Response: No adverse reaction; Marked relief of symptoms em 18:35 Drug: SOLU-Medrol (methylPrednisoLONE) 125 mg Route: IVP; Site: right antecubital; em 18:51 Follow up: Response: No adverse reaction em Outcome: 18:58 Decision to Hospitalize by Provider. tw4 19:41 AMA AMA form signed ea 19:41 Condition: stable 19:45 Patient left the ED. iw Signatures: Dispatcher [employer] EDMS Ronnie Colunga RN RN Anais Van RN JCARLOS Steve Pugh em1 Nguyen Ovalles, RN JCARLOS Susana Viveros, RN Stew Lynch ea, MD MD tw4 Chula Carlisle RN RN ca1
[2021-04-02 20:23] VITALS: BP 132/68; TEMP 98; O2SAT 99
--- NOTE | 2021-04-03 07:51 | EKG ---
Test Date: 2021-04-02 Test Time: 16:41:21 Perinatal Breastfeeding Assistant: JULIEN MEASUREMENT RESULTS: Intervals: Rate: 74 AK: 172 QRSD: 78 QT: 386 QTc: 428 [place]: P: 17 AK: 172 QRS: 3 T: 13 INTERPRETIVE STATEMENTS: Normal sinus rhythm Cannot rule out Anterior infarct, age undetermined Abnormal ECG Compared to ECG 10/03/2019 14:33:10 No significant changes Electronically Signed On 04-03-21 07:50:31 CDT by Jin Mendenhall
== END 2021-04-02 19:45 | disposition left against medical advice (07) ==
LOC: ER 16:12
DX: R07.89 Other chest pain (principal); I10 Essential (primary) hypertension; Z20.822 Contact with and (suspected) exposure to COVID-19; Z88.1 Allergy status to other antibiotic agents; Z88.8 Allergy status to other drugs, medicaments and biological substances; Z91.018 Allergy to other foods
CPT/HCPCS: 85025; 80048; 36415; 83735; 85610; 80076; 84484; 83880; 71275; 71045; U0003; Q9967; J2930; 93005; 96374; 99285

== ENCOUNTER 2021-04-18 07:45 | Day surgery (SDC) | payer OTHER ==
[2021-04-18] MEDS ORDERED: NA CHLORIDE 0.9% 1,000 ML ONE (08:22)
[2021-04-18] MEDS ORDERED: ACETAMINOPHEN 500 MG TAB ONE (09:40)
[2021-04-18] MEDS ORDERED: propofoL 200 MG/20 ML VIAL IV ONE (09:48)
[2021-04-18] MEDS ORDERED: MIDAZOLAM HCL 2 MG/2 ML INJ ONE (09:48)
[2021-04-18] MEDS ORDERED: LIDOCAINE 1% MPF 5 ML VIAL ONE (09:49)
[2021-04-18] MEDS ORDERED: OFLOXACIN OPH 0.3%-5 ML BTL ONE (11:00)
[2021-04-18 11:41] VITALS: BP 134/75; TEMP 98; O2SAT 96
--- NOTE | 2021-04-18 12:10 | P.OP ---
Pre-Op Diagnosis: Chronic nonsuppurative otitis media Post-Op Diagnosis: Same Procedure: Left myringotomy and tympanostomy tube placement Anesthesia: Other (GA via LMA) Estimated blood loss: Nil Specimen: None Findings: Serous Complications: None Implants: Paparella Type I tympanostomy tube Indication: Patient with recurrent acute otitis media and persistent middle ear fluid in spite of good medical management. Details of Operation: The patient was brought to the operating room and placed under general anesthesia via inhalation mask. The left ear was visualized under the operating microscope. A speculum aided visualization. Cerumen was removed from the canal using a wire curette. A myringotomy incision was made in the anterior-inferior quadrant and serousfluid was aspirated from the middle ear space. A Paparella Type I tympanostomy tube was positioned across the incision using the alligator and pick. No drops were needed as the middle ear was no significantly inflammed or infected. Disposition: The patient was then awakened from anesthesia and taken to the recovery room in stable condition.
== END 2021-04-18 12:30 | disposition home or self-care (01) ==
LOC: OR 07:45
PROVIDERS: ATTEND Otolaryngology
PROC: 099570Z Drainage of Right Middle Ear with Drainage Device, Via Natural or Artificial Opening (ICD-10-PCS; 2021-04-18)
PROC: 099670Z Drainage of Left Middle Ear with Drainage Device, Via Natural or Artificial Opening (ICD-10-PCS; principal; 2021-04-18 09:15)
DX: H92.02 Otalgia, left ear (principal)
CPT/HCPCS: 82947 ×2; 69436; J2704; J2250; J7030

== ENCOUNTER 2021-11-11 20:48 | Emergency (ER) | payer OTHER ==
--- OUTSIDE RECORDS SUMMARY | 2021-11-11 20:54 | XMS REPORT | Continuity of Care Document ---
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 human 70-30 00:00: mellitus UNDER THE [place] (HUMULIN 00 with SKIN EVERY Medic al [...] meals. Branch " Syrg hyperglycem E11.65 ia insulin Yes [id number] 1{each} 1 Each 2 [facility] U-500 3-08 (two) ity of syringe-nee 00:00: times [place] dle 1/2 mL 00 daily with Med ical 31 gauge x meals. Branch " Syrg E11.65 insulin 2020-0 Yes [id number] 1{each} 1 Each 2 [facility] U-500 3-08 (two) ity of syringe-nee 00:00: times [place] dle 1/2 mL 00 daily with Med ical 31 gauge x meals. Branch " Syrg E11.65 insulin 2020-0 Yes [id number] 1{each} 1 Each 2 [facility] U-500 3-08 (two) ity of syringe-nee 00:00: times [place] dle 1/2 mL 00 daily with Med ical 31 gauge x meals. Branch " Syrg E11.65 insulin 2020-0 Yes [id number] 1{each} 1 Each 2 [facility] U-500 3-08 (two) ity of syringe-nee 00:00: times [place] dle 1/2 mL 00 daily with Med ical 31 gauge x meals. Branch " Syrg E11.65 insulin 2020-0 Yes [id number] 1{each} 1 Each 2 [facility] U-500 3-08 (two) ity of syringe-nee 00:00: times [place] dle 1/2 mL 00 daily with Med ical 31 gauge x meals. Branch " Syrg E11.65 insulin 0 Yes [id number] 1{each} 1 Each 2 [facility] U-500 3-08 (two) ity of syringe-nee 00:00: times [place] dle 1/2 mL 00 daily with Med ical 31 gauge x meals. Branch " Syrg E11.65 metoprolol 2020-0 Yes 100mg Take 1 Univ ers tartrate 2-11 tablet by ity of 100 mg 00:00: mouth 2 [place] tablet 00 (two) Medical times Branch daily. metFORMIN 2020-0 Yes Type 2 1000mg Take 1 [facility] 1,000 mg 1-13 diabetes tablet by it y of tablet 00:00: mellitus mouth 2 [place] 00 without (two) Medical complicatio times Branch n, with daily with long-term meals. current use of insulin metFORMIN 2020-0 202- No [id number] 1000mg Take 1 [facility] 1,000 mg 11-1318 tablet by ity o f tablet 00:00: 00:00 mouth 2 [place] 00 :00 (two) Medical times Branch daily with meals. TRELEGY 2019-11 Yes INHALE 1 Univer s ELLIPTA 2-24 PUFF BY ity of 100-62.5-25 00:00: MOUTH [place] mcg DsDv 00 EVERY DAY Medica l Branch TRELEGY 2019- Yes INHALE 1 [facility]iver s ELLIPTA 2-24 PUFF BY ity of 100-62.5-25 00:00: MOUTH [place] mcg DsDv 00 EVERY DAY Medica l Branch TRELEGY 2019- Yes INHALE 1 [facility]iver s ELLIPTA 2-24 PUFF BY ity of 100-62.5-25 00:00: MOUTH [place] mcg DsDv 00 EVERY DAY Medica l Branch TRELEGY 2019- Yes INHALE 1 Univer s ELLIPTA 2-24 PUFF BY ity of 100-62.5-25 00:00: MOUTH [place] mcg DsDv 00 EVERY DAY Medica l Branch TRELEGY 2019- Yes INHALE 1 Univer s ELLIPTA 2-24 PUFF BY ity of 100-62.5-25 00:00: MOUTH [place] mcg DsDv 00 EVERY DAY Medica l Branch TRELEGY 2019- Yes INHALE 1 Univer s ELLIPTA 2-24 PUFF BY ity of 100-62.5-25 00:00: MOUTH [place] mcg DsDv 00 EVERY DAY Medica l Branch TRELEGY 2020- Yes INHALE 1 Univer s ELLIPTA 2-24 PUFF BY ity of 100-62.5-25 00:00: MOUTH [place] mcg DsDv 00 EVERY DAY Medica l Branch ipratropium 2020- Yes Univer s 0.02 % 2-23 ity of nebulizer 00:00: [place] solution 00 Medical Branch ipratropium 2020-1 Yes Univer s 0.02 % 2-23 ity of nebulizer 00:00: [place] solution 00 Medical Branch ipratropium 2020-1 Yes Univer s 0.02 % 2-23 ity of nebulizer 00:00: [place] solution 00 Medical Branch ipratropium 2020-1 Yes Univer s 0.02 % 2-23 ity of nebulizer 00:00: [place] solution Medical Branch ipratropium 2019-11 Yes Univer s 0.02 % 2-23 ity of nebulizer 00:00: [place] solution Medical Branch ipratropium 2019-11 Yes Univer s 0.02 % 2-23 ity of nebulizer 00:00: [place] solution Medical Branch ipratropium 2019-11 Yes Univer s 0.02 % 2-23 ity of nebulizer 00:00: [place] solution 00 Medical Branch zolpidem 10 2019-11 Yes 10mg Take 10 mg [facility] mg tablet 2-14 by mouth ity of 00:00: at bedtime [place] 00 as needed. Medical Branch zolpidem 10 2019-11 Yes 10mg Take 10 mg [facility] mg tablet 2-14 by mouth ity of 00:00: at bedtime [place] 00 as needed. Medical Branch zolpidem 10 2019-11 Yes 10mg Take 10 mg [facility] mg tablet 2-14 by mouth ity of 00:00: at bedtime [place] 00 as needed. Medical Branch zolpidem 10 2019-11 Yes 10mg Take 10 mg [facility] mg tablet 2-14 by mouth ity of 00:00: at bedtime [place] 00 as needed. Medical Branch zolpidem 10 2019-11 Yes 10mg Take 10 mg [facility] mg tablet 2-14 by mouth ity of 00:00: at bedtime [place] 00 as needed. Medical Branch zolpidem 10 2019-11 Yes 10mg Take 10 mg [facility] mg tablet 2-14 by mouth ity of 00:00: at bedtime [place] 00 as needed. Medical Branch zolpidem 10 2019-11 Yes 10mg Take 10 mg [facility] mg tablet 2-14 by mouth ity of 00:00: at bedtime [place] 00 as needed. Medical Branch diclofenac 2019-11 [...] al of 50 or daily. Branch higher Diclofenac 2019-11 Yes [id number] Apply to [facility] Sodium 2-04 area(s) 4 ity of (VOLTAREN) 00:00: (four) [place] 1 % gel 00 times Medical daily. Branch Diclofenac 2019-11- No [id number] Apply to [facility] Sodium 2-04 10-02 area(s) 4 ity of (VOLTAREN) 00:00: 00:00 (four) [place] 1 % gel 00 :00 times Medical daily. Branch dicyclomine 2019- Yes TK 1 C PO U nivers 10 mg 1-24 IN THE ity of capsule 00:00: MORNING [place] 00 AND THEN Q Medical 8 H PRF Branch ABDOMINAL PAIN. dicyclomine 2019- Yes TK 1 C PO U nivers 10 mg 1-24 IN THE ity of capsule 00:00: MORNING [place] 00 AND THEN Q Medical 8 H PRF Branch ABDOMINAL PAIN. dicyclomine 2019- Yes TK 1 C PO U nivers 10 mg 1-24 IN THE ity of capsule 00:00: MORNING [place] 00 AND THEN Q Medical 8 H PRF Branch ABDOMINAL PAIN. dicyclomine 2019- Yes TK 1 C PO U nivers 10 mg 1-24 IN THE ity of capsule 00:00: MORNING [place] 00 AND THEN Q Medical 8 H PRF Branch ABDOMINAL PAIN. dicyclomine 2019- Yes TK 1 C PO U nivers 10 mg 1-24 IN THE ity of capsule 00:00: MORNING 00 AND THEN Q Medical 8 H PRF Branch ABDOMINAL PAIN. dicyclomine 2019- Yes TK 1 C PO U nivers 10 mg 1-24 IN THE ity of capsule 00:00: MORNING 00 AND THEN Q Medical 8 H PRF Branch ABDOMINAL PAIN. dicyclomine 2019- Yes TK 1 C PO U nivers 10 mg 1-24 IN THE ity of capsule 00:00: MORNING [place] 00 AND THEN Q Medical 8 H PRF Branch ABDOMINAL PAIN. MOTEGRITY 2020- Yes TK 1 T PO Uni vers tablet 1-12 D ity of 00:00: [place] 00 Medical Branch MOTEGRITY 2020- Yes TK 1 T PO [facility] vers tablet 1-12 D ity of 00:00: 00 Medical Branch MOTEGRITY 2020- Yes TK 1 T PO [facility] vers tablet 1-12 D ity of 00:00: [place] 00 Medical Branch MOTEGRITY 2020- Yes TK 1 T PO [facility] vers tablet 1-12 D ity of 00:00: Medical Branch MOTEGRITY 2020- Yes TK 1 T PO [facility] vers tablet 1-12 D ity of 00:00: Medical Branch MOTEGRITY 2019- Yes TK 1 T PO [facility] vers tablet 1-12 D ity of 00:00: Medical Branch MOTEGRITY 2020- Yes TK 1 T PO [facility] vers tablet 1-12 D ity of 00:00: Medical Branch gabapentin 2019- Yes Chronic 600mg Take 1 U nivers 600 mg 1-11 bilateral tablet by ity of tablet 00:00: low back mouth 3 [place] 00 pain with (three) Medical bilateral times Branch sciatica daily. ondansetron 2020- Yes as needed. [facility] 4 mg tablet 1-04 ity of 00:00: Medical Branch ondansetron 2019-11 Yes as needed. [facility] 4 mg tablet 1-04 ity of 00:00: Medical Branch ondansetron 2019-11 Yes as needed. [facility] 4 mg tablet 1-04 ity of 00:00: Medical Branch ondansetron 2019- Yes as needed. [facility] 4 mg tablet 1-04 ity of 00:00: Medical Branch ondansetron 2019-11 Yes as needed. [facility] 4 mg tablet 1-04 ity of 00:00: Medical Branch ondansetron 2019-11 Yes as needed. [facility] 4 mg tablet 1-04 ity of 00:00: Medical Branch ondansetron 2020- Yes TK 2 TS PO [facility] 4 mg tablet 1-04 Q 12 H ity of 00:00: Medical Branch diclofenac 2020- Yes [id number] 75mg Take 1 [facility] 75 mg EC 0-08 tablet by ity of tablet 00:00: mouth 2 (two) Medical times Branch daily with meals. diclofenac 2019-11 Yes [id number] 75mg Take 1 [facility] 75 mg EC 0-08 tablet by ity of tablet 00:00: mouth 2 (two) Medical times Branch daily with meals. diclofenac 2019-11 Yes [id number] 75mg Take 1 [facility] 75 mg EC 0-08 tablet by ity of tablet 00:00: mouth 2 (two) Medical times Branch daily with meals. diclofenac 2020-1 Yes [id number] 75mg Take 1 [facility] 75 mg EC 0-08 tablet by ity of tablet 00:00: mouth 2 (two) Medical times Branch daily with meals. diclofenac 2020- Yes [id number] 75mg Take 1 [facility] 75 mg EC 0-08 tablet by ity of tablet 00:00: mouth 2 (two) Medical times Branch daily with meals. diclofenac 2020- Yes [id number] 75mg Take 1 [facility] 75 mg EC 0-08 tablet by ity of tablet 00:00: mouth 2 (two) Medical times Branch daily with meals. diclofenac 2019- Yes Morbid 75mg Take 1 [facility] vers 75 mg EC 0-08 obesity tablet by ity of tablet 00:00: with body mouth 2 [place] as 00 mass index (two) Medical of 50 or times Branch higher daily with meals. COLCHICINE 2019-0 Yes Gout, .6mg TAKE 1 [facility] ers 0.6 mg 8-28 unspecified TABLET BY i ty of tablet 00:00: cause, MOUTH 00 unspecified DAILY Medical chronicity, Branch unspecified site hydrALAZINE 2019-0 Yes Essential TAKE 1 [facility] 100 mg 8-12 hypertensio TABLET BY i ty of tablet 00:00: n MOUTH THREE Medical TIMES Branch DAILY CLONIDINE 2020-0 Yes [id number] TAKE 1 [facility] ally 0.2 mg 8-06 TABLET BY ity of tablet 00:00: MOUTH THREE Medical TIMES Branch DAILY CLONIDINE 2020-0 Yes [id number] TAKE 1 [facility] ally 0.2 mg 8-06 TABLET BY ity of tablet 00:00: MOUTH THREE Medical TIMES Branch DAILY CLONIDINE 2020-0 Yes [id number] TAKE 1 [facility] ally 0.2 mg 8-06 TABLET BY ity of tablet 00:00: MOUTH THREE Medical TIMES Branch DAILY CLONIDINE 2020-0 Yes [id number] TAKE 1 [facility] ally 0.2 mg 8-06 TABLET BY ity of tablet 00:00: MOUTH 00 THREE Medical TIMES Branch DAILY CLONIDINE 2020-0 Yes [id number] TAKE 1 [facility] ally 0.2 mg 8-06 TABLET BY ity of tablet 00:00: MOUTH THREE Medical TIMES Branch DAILY CLONIDINE 2020-0 Yes [id number] TAKE 1 [facility] ally 0.2 mg 8-06 TABLET BY ity of tablet 00:00: MOUTH THREE Medical TIMES Branch DAILY CLONIDINE 2020-0 Yes Essential TAKE 1 U nivers 0.2 mg 8-06 hypertensio TABLET BY i ty of tablet 00:00: n MOUTH [place] 00 THREE Medical TIMES Branch DAILY mesalamine 2020-0 Yes 1.5g Take 1.5 g U nivers 0.375 gram 7-13 by mouth ity o f 24 hr 19:23: daily. [place] capsule 21 Medical Branch sulfamethox 2020-0 Yes TK 1 T PO U nivers azole-trime 7-08 BID ity of thoprim 00:00: [place] 800-160 mg 00 Medical per tablet Branch sulfamethox 2020-0 Yes TK 1 T PO U nivers azole-trime 7-08 BID ity of thoprim 00:00: [place] 800-160 mg 00 Medical per tablet Branch sulfamethox 2020-0 Yes TK 1 T PO U nivers azole-trime 7-08 BID ity of thoprim 00:00: [place] 800-160 mg 00 Medical per tablet Branch sulfamethox 2020-0 Yes TK 1 T PO U nivers azole-trime 7-08 BID ity of thoprim 00:00: [place] 800-160 mg 00 Medical per tablet Branch sulfamethox 2020-0 Yes TK 1 T PO U nivers azole-trime 7-08 BID ity of thoprim 00:00: [place] 800-160 mg 00 Medical per tablet Branch sulfamethox 2020-0 Yes TK 1 T PO U nivers azole-trime 7-08 BID ity of thoprim 00:00: [place] 800-160 mg 00 Medical per tablet Branch sulfamethox 2020-0 Yes TK 1 T PO U nivers azole-trime 7-08 BID ity of thoprim 00:00: [place] 800-160 mg 00 Medical per tablet Branch AMITIZA 24 2020-0 Yes TK 1 C PO Un ally mcg capsule - BID ity of 00:00: [place] 00 Medical Branch AMITIZA 24 2020-0 Yes TK 1 C PO Un ally mcg capsule - BID ity of 00:00: [place] 00 Medical Branch AMITIZA 24 2020-0 Yes TK 1 C PO Un ally mcg capsule - BID ity of 00:00: [place] 00 Medical Branch AMITIZA 24 2020-0 Yes TK 1 C PO Un ally mcg capsule - BID ity of 00:00: [place] 00 Medical Branch AMITIZA 24 2020-0 Yes TK 1 C PO Un ally mcg capsule 7-06 BID ity of 00:00: [place] [facility] AMITIZA 24 2020-0 Yes TK 1 C PO Un ally mcg capsule 7-06 BID ity of 00:00: [place] [facility] AMITIZA 24 2019-0 Yes TK 1 C PO Un ally mcg capsule 7-06 BID ity of 00:00: [place] [facility] XIFAXAN 550 2020-0 Yes as needed. [facility] mg tablet 5-14 ity of 00:00: [place] [facility] XIFAXAN 550 2020-0 Yes as needed. [facility] mg tablet 5-14 ity of 00:00: [place] [facility] XIFAXAN 550 2020-0 Yes as needed. [facility] mg tablet 5-14 ity of 00:00: [place] [facility] XIFAXAN 550 2020-0 Yes as needed. [facility] mg tablet 5-14 ity of 00:00: [place] [facility] XIFAXAN 550 2020-0 Yes as needed. [facility] mg tablet 5-14 ity of 00:00: [place] [facility] XIFAXAN 550 2020-0 Yes as needed. [facility] mg tablet 5-14 ity of 00:00: [place] [facility] XIFAXAN 550 2020-0 Yes Univer s mg tablet 5-14 ity of 00:00: [place] [facility] insulin 2019-0 Yes Uncontrolle Take 50 [facility] regular 4-21 d type 2 units with it y of human 500 00:00: diabetes breakfast [place] unit/mL 00 mellitus lunch and Med ical injection with dinner Branch hyperglycem E11.65 ia VICTOZA 2020-0 Yes INJECT 1.8 Univ ers 3-PATRICK 0.6 4-06 MG UNDER ity of mg/0.1 mL 00:00: THE SKIN [place] (18 mg/3 00 DAILY Medical mL) Branch injection VICTOZA 2020-0 Yes INJECT 1.8 Univ ers 3-PATRICK 0.6 4-06 MG UNDER ity of mg/0.1 mL 00:00: THE SKIN [place] (18 mg/3 00 DAILY Medical mL) Branch injection VICTOZA 2020-0 Yes INJECT 1.8 Univ ers 3-PATRICK 0.6 4-06 MG UNDER ity of mg/0.1 mL 00:00: THE SKIN [place] (18 mg/3 00 DAILY Medical mL) Branch injection VICTOZA 2020-0 Yes INJECT 1.8 Univ ers 3-PATRICK 0.6 4-06 MG UNDER ity of mg/0.1 mL 00:00: THE SKIN [place] (18 mg/3 00 DAILY Medical mL) Branch injection VICTOZA 2020-0 Yes INJECT 1.8 Univ ers 3-PATRICK 0.6 4-06 MG UNDER ity of mg/0.1 mL 00:00: THE SKIN [place] (18 mg/3 00 DAILY Medical mL) Branch injection VICTOZA 2020-0 Yes INJECT 1.8 Univ ers 3-PATRICK 0.6 4-06 MG UNDER ity of mg/0.1 mL 00:00: THE SKIN [place] (18 mg/3 00 DAILY Medical mL) Branch injection VICTOZA 2020-0 Yes INJECT 1.8 Univ ers 3-PATRICK 0.6 [...] by ity of tablet 00:00: mouth 2 (two) Medical times Branch daily. pantoprazol 2018-11 Yes 40mg Take 1 Univ ers e 40 mg EC 1-21 tablet by ity of tablet 00:00: mouth 2 [place] 00 (two) Medical times Branch daily. pantoprazol 2018-11 Yes 40mg Take 1 Univ ers e 40 mg EC 1-21 tablet by ity of tablet 00:00: mouth 2 00 (two) Medical times Branch daily. pantoprazol 2018-11 Yes 40mg Take 1 Univ ers e 40 mg EC 1-21 tablet by ity of tablet 00:00: mouth 2 [place] 00 (two) Medical times Branch daily. pantoprazol 2018-11 Yes 40mg Take 1 Univ ers e 40 mg EC 1-21 tablet by ity of tablet 00:00: mouth 2 [place] (two) Medical times Branch daily. pantoprazol 2018-11 Yes 40mg Take 1 Univ ers e 40 mg EC 1-21 tablet by ity of tablet 00:00: mouth 2 [place] 00 (two) Medical times Branch daily. pantoprazol 2018-11 Yes 40mg Take 1 Univ [...] tablet minutes as needed for Chest pain. allopurinol Yes 100mg Take 100 U nivers (ZYLOPRIM) 8-28 mg by ity of 100 mg 09:53: mouth [place] tablet 14 daily. Medical Branch ALPRAZolam 2019-0 Yes 2mg Take 2 mg Un ally (XANAX) 8-28 by mouth ity of 0.25 mg 09:53: every 6 [place] tablet 14 (six) Medical hours as Branch needed. allopurinol 2019-0 Yes 100mg Take 100 U nivers (ZYLOPRIM) 8-28 mg by ity of 100 mg 09:53: mouth [place] tablet 14 daily. [facility] Branch ALPRAZolam 2019-0 Yes 2mg Take 2 mg Un ally (XANAX) 8-28 by mouth ity of 0.25 mg 09:53: every 6 [place] tablet 14 (six) Medical hours as Branch needed. allopurinol 2019-0 Yes 100mg Take 100 U nivers (ZYLOPRIM) 8-28 mg by ity of 100 mg 09:53: mouth [place] tablet 14 daily. [facility] Branch ALPRAZolam 2019-0 Yes 2mg Take 2 mg Un ally (XANAX) 8-28 by mouth ity of 0.25 mg 09:53: every 6 [place] tablet 14 (six) Medical hours as Branch needed. allopurinol 2019-0 Yes 100mg Take 100 U nivers (ZYLOPRIM) 8-28 mg by ity of 100 mg 09:53: mouth [place] tablet 14 daily. [facility] Branch ALPRAZolam 2019-0 Yes 2mg Take 2 mg Un ally (XANAX) 8-28 by mouth ity of 0.25 mg 09:53: every 6 [place] tablet 14 (six) Medical hours as Branch needed. allopurinol 2019-0 Yes 100mg Take 100 U nivers (ZYLOPRIM) 8-28 mg by ity of 100 mg 09:53: mouth [place] tablet 14 daily. [facility] Branch ALPRAZolam 2019-0 Yes 2mg Take 2 mg Un ally (XANAX) 8-28 by mouth ity of 0.25 mg 09:53: every 6 [place] tablet 14 (six) Medical hours as Branch needed. allopurinol 2019-0 Yes 100mg Take 100 U nivers (ZYLOPRIM) 8-28 mg by ity of 100 mg 09:53: mouth [place] tablet 14 daily. [facility] Branch ALPRAZolam 2019-0 Yes 2mg Take 2 mg Un ally (XANAX) 8-28 by mouth ity of 0.25 mg 09:53: every 6 [place] tablet 14 (six) Medical hours as Branch needed. amoxicillin Yes Bronchitis 1{tbl} Take 1 Univers -clavulanat 8-28 tablet by ity of e 00:00: mouth 2 [place] (AUGMENTIN) 00 (two) Medical 875-125 mg times Branch per tablet daily. atorvastati Yes Hyperlipide 40mg Take 1 [facility] n 40 mg 5-28 moncho, tablet by ity of tablet 00:00: unspecified mouth [place] as 00 hyperlipide every Medical moncho type evening. Branch atorvastati Yes [id number] 40mg Take 1 [facility] n 40 mg 5-28 tablet by ity of tablet 00:00: mouth [place] 00 every Medical evening. Branch atorvastati Yes [id number] 40mg Take 1 [facility] n 40 mg 5-28 tablet by ity of tablet 00:00: mouth [place] 00 every Medical evening. Branch atorvastati Yes [id number] 40mg Take 1 [facility] n 40 mg 5-28 tablet by ity of tablet 00:00: mouth [place] 00 every Medical evening. Branch atorvastati Yes [id number] 40mg Take 1 [facility] n 40 mg 5-28 tablet by ity of tablet 00:00: mouth [place] 00 every Medical evening. Branch atorvastati Yes [id number] 40mg Take 1 [facility] n 40 mg 5-28 tablet by ity of tablet 00:00: mouth [place] 00 every Medical evening. Branch atorvastati Yes [id number] 40mg Take 1 [facility] n 40 mg 5-28 tablet by ity of tablet 00:00: mouth [place] 00 every Medical evening. Branch amLODIPine 2017-11 Yes 10mg Take 1 Unive rs (NORVASC) 1-28 tablet by ity o f 10 mg 00:00: mouth [place] tablet 00 daily. Medical Branch clarithromy 2017-11 Yes 500mg Take 1 Uni vers patsy 1-28 tablet by ity of (BIAXIN) 00:00: mouth [place] 500 mg 00 every 12 Medical tablet (twelve) Branch hours. amLODIPine 2017-11 Yes 10mg Take 1 Unive rs (NORVASC) 1-28 tablet by ity o f 10 mg 00:00: mouth [place] tablet 00 daily. Medical Branch amLODIPine 2017-11 Yes 10mg Take 1 Unive rs (NORVASC) 1-28 tablet by ity o f 10 mg 00:00: mouth [place] tablet 00 daily. Medical Branch amLODIPine 2017-11 Yes 10mg Take 1 Unive rs (NORVASC) 1-28 tablet by ity o f 10 mg 00:00: mouth [place] tablet 00 daily. Medical Branch amLODIPine 2017-11 Yes 10mg Take 1 Unive rs (NORVASC) 1-28 tablet by ity o f 10 mg 00:00: mouth [place] tablet 00 daily. Medical Branch amLODIPine 2017-11 Yes 10mg Take 1 Unive rs (NORVASC) 1-28 tablet by ity o f 10 mg 00:00: mouth [place] tablet 00 daily. Medical Branch amLODIPine 2017-11 Yes 10mg Take 1 Unive rs (NORVASC) 1-28 tablet by ity o f 10 mg 00:00: mouth [place] tablet 00 daily. Medical Branch Cholecalcif 2017-11 Yes [id number] Take 1 Un ally alayna, 0-01 capsule by ity of Vitamin D3, 00:00: mouth [place] 50,000 unit 00 weekly. Medic al capsule Branch Cholecalcif 2017-11 Yes [id number] Take 1 Un ally alayna, 0-01 capsule by ity of Vitamin D3, 00:00: mouth [place] 50,000 unit 00 weekly. Medic al capsule Branch Cholecalcif 2017-11 Yes [id number] Take 1 Un ally alayna, 0-01 capsule by ity of Vitamin D3, 00:00: mouth [place] 50,000 unit 00 weekly. Medic al capsule Branch Cholecalcif 2017-11 Yes [id number] Take 1 Un ally alayna, 0-01 capsule by ity of Vitamin D3, 00:00: mouth [place] 50,000 unit 00 weekly. Medic al capsule Branch Cholecalcif 2017-11 Yes [id number] Take 1 Un ally alayna, 0-01 capsule by ity of Vitamin D3, 00:00: mouth [place] 50,000 unit 00 weekly. Medic al capsule Branch Cholecalcif 2017-11 Yes [id number] Take 1 Un ally alayna, 0-01 capsule by ity of Vitamin D3, 00:00: mouth [place] 50,000 unit 00 weekly. Medic al capsule Branch Cholecalcif 2017-11 Yes [id number] Take 1 Un ally alayna, 0-01 capsule by ity of Vitamin D3, 00:00: mouth [place] 50,000 unit 00 weekly. Medic al capsule Branch albuterol 2015-11 Yes 2{puff} Inhale 2 U nivers 90 2-29 Puffs ity of mcg/actuati 00:00: every 4 [place] as on inhaler 00 (four) Medical hours as Branch needed for Wheezing or Shortness of Breath. albuterol 2015-11 Yes 2{puff} Inhale 2 U nivers 90 2-29 Puffs ity of mcg/actuati 00:00: every 4 [place] as on inhaler 00 (four) Medical hours as Branch needed for Wheezing or Shortness of Breath. albuterol 2015-11 Yes 2{puff} Inhale 2 U nivers 90 2-29 Puffs ity of mcg/actuati 00:00: every 4 [place] on inhaler 00 (four) Medical hours as Branch needed for Wheezing or Shortness of Breath. albuterol 2015-11 Yes 2{puff} Inhale 2 U nivers 90 2-29 Puffs ity of mcg/actuati 00:00: every 4 [place] as on inhaler 00 (four) Medical hours as Branch needed for Wheezing or Shortness of Breath. albuterol 2015-11 Yes 2{puff} Inhale 2 U nivers 90 2-29 Puffs ity of mcg/actuati 00:00: every 4 [place] as on inhaler 00 (four) Medical hours as Branch needed for Wheezing or Shortness of Breath. albuterol 2015-11 Yes 2{puff} Inhale 2 U nivers 90 2-29 Puffs ity of mcg/actuati 00:00: every 4 [place] on inhaler 00 (four) Medical hours as Branch needed for Wheezing or Shortness of Breath. albuterol 2015-11 Yes 2{puff} Inhale 2 U nivers 90 2-29 Puffs ity of mcg/actuati 00:00: every 4 [place] as on inhaler 00 (four) Medical hours as Branch needed for Wheezing or Shortness of Breath. zolpidem 10 zolpidem 10 No zolpidem [place] mg tablet mg tablet 10 mg Fami ly TAKE 1 TAKE 1 tablet [facility] TABLET BY TABLET BY TAKE 1 e MOUTH AT MOUTH AT TABLET BY BEDTIME BEDTIME MOUTH AT NEEDED FOR NEEDED FOR BEDTIME INSOMNIA INSOMNIA NEEDED FOR INSOMNIA albuterol albuterol No albuterol [facility] sulfate 2.5 sulfate 2.5 sulfate Family mg/3 mL mg/3 mL 2.5 mg/3 Pract ic (0.083 %) (0.083 %) mL (0.083 e solution solution %) for for solution nebulizatio nebulizatio for n n nebulizati on albuterol albuterol No albuterol [facility] sulfate HFA sulfate HFA sulfate Family 90 90 HFA 90 [facility] mcg/actuati mcg/actuati mcg/actuat e on aerosol on aerosol ion inhaler inhaler aerosol INHALE 1 INHALE 1 inhaler PUFF BY PUFF BY INHALE 1 MOUTH EVERY MOUTH EVERY PUFF BY 4 TO 6 4 TO 6 MOUTH HOURS HOURS EVERY 4 TO NEEDED FOR NEEDED FOR 6 HOURS SHORTNESS SHORTNESS NEEDED FOR OF BREATH OF BREATH SHORTNESS OF BREATH allopurinol allopurinol No allopurino [facility] 300 mg 300 mg l 300 mg Family tablet TAKE tablet TAKE tablet [facility] 1 TABLET BY 1 TABLET BY TAKE 1 e MOUTH TWICE MOUTH TWICE TABLET BY DAILY. DAILY. MOUTH TWICE DAILY. alprazolam alprazolam No alprazolam [facility] 2 mg tablet 2 mg tablet 2 mg F amily TAKE 1 TAKE 1 tablet [facility] TABLET BY TABLET BY TAKE 1 e MOUTH THREE MOUTH THREE TABLET BY TIMES DAILY TIMES DAILY MOUTH NEEDED NEEDED THREE FOR ANXIETY FOR ANXIETY TIMES DAILY NEEDED FOR ANXIETY amlodipine amlodipine No amlodipine [facility] 5 mg tablet 5 mg tablet 5 mg F amily TAKE 1 TAKE 1 tablet [facility] TABLET BY TABLET BY TAKE 1 e MOUTH EVERY MOUTH EVERY TABLET BY DAY DAY MOUTH EVERY DAY atorvastati atorvastati No atorvastat [facility] n 20 mg n 20 mg in 20 mg Famil y tablet TAKE tablet TAKE tablet [facility] 1 TABLET BY 1 TABLET BY TAKE 1 e MOUTH EVERY MOUTH EVERY TABLET BY DAY DAY MOUTH EVERY DAY BD Insulin BD Insulin No BD Insulin [facility] Syringe Syringe Syringe Family U-500 1/2 U-500 1/2 U-500 1/2 [facility] mL 31 gauge mL 31 gauge mL 31 e x " x " gauge x USE 1 USE 1 " USE SYRINGE SYRINGE 1 SYRINGE TWICE DAILY TWICE DAILY TWICE WITH MEALS. WITH MEALS. DAILY WITH MEALS. BD [place] 2nd BD [place] 2nd No BD [place] Gen Pen Gen Pen 2nd Gen Family Needle 32 Needle 32 Pen Needle [facility] gauge x gauge x 32 gauge x e " USE " USE " USE TWICE DAILY TWICE DAILY TWICE DAILY clonidine clonidine No clonidine [place] HCl 0.2 mg HCl 0.2 mg HCl 0.2 mg Family tablet TAKE tablet TAKE tablet [facility] 1 TABLET BY 1 TABLET BY TAKE 1 e MOUTH THREE MOUTH THREE TABLET BY TIMES DAILY TIMES DAILY MOUTH THREE TIMES DAILY colchicine colchicine No colchicine [place] 0.6 mg 0.6 mg 0.6 mg Family tablet TAKE tablet TAKE tablet [facility] 1 TABLET BY 1 TABLET BY TAKE 1 e MOUTH AT MOUTH AT TABLET BY ONSET OF ONSET OF MOUTH AT GOUT PAIN GOUT PAIN ONSET OF AND REPEAT AND REPEAT GOUT PAIN EVERY HOUR EVERY HOUR AND REPEAT TILL PAIN TILL PAIN EVERY HOUR SUBSIDES OR SUBSIDES OR TILL PAIN ONSET OF ONSET OF SUBSIDES DIARRHEA DIARRHEA OR ONSET OF DIARRHEA cyclobenzap cyclobenzap No cyclobenza [place] rine 10 mg rine 10 mg wiley 10 Family tablet TAKE tablet TAKE mg tablet Practic 1 TABLET BY 1 TABLET BY TAKE 1 e MOUTH EVERY MOUTH EVERY TABLET BY NIGHT AT NIGHT AT MOUTH BEDTIME BEDTIME EVERY NEEDED FOR NEEDED FOR NIGHT AT MUSCLE MUSCLE BEDTIME SPASM OR SPASM OR NEEDED FOR EAR PAIN EAR PAIN MUSCLE SPASM OR EAR PAIN diclofenac diclofenac No diclofenac [place] 1 % topical 1 % topical 1 % F amily gel APPLY gel APPLY topical Pr actic TO THE TO THE gel APPLY e AFFECTED AFFECTED TO THE AREA FOUR AREA FOUR AFFECTED TIMES DAILY TIMES DAILY AREA FOUR TIMES DAILY diclofenac diclofenac No diclofenac [facility] sodium 75 sodium 75 sodium 75 Family mg mg mg Practic tablet,artem tablet,artem tablet,del e yed release yed release ayed TAKE 1 TAKE 1 release TABLET BY TABLET BY TAKE 1 MOUTH TWICE MOUTH TWICE TABLET BY DAILY WITH DAILY WITH MOUTH MEALS MEALS TWICE DAILY WITH MEALS dicyclomine dicyclomine No dicyclomin [facility] 10 mg 10 mg e 10 mg Family capsule capsule capsule Practi c TAKE 1 TAKE 1 TAKE 1 e CAPSULE BY CAPSULE BY CAPSULE BY MOUTH EVERY MOUTH EVERY MOUTH 8 HOURS 8 HOURS EVERY 8 HOURS gabapentin gabapentin No gabapentin [place] 600 mg 600 mg 600 mg Family tablet TAKE tablet TAKE tablet Practic 1 TABLET BY 1 TABLET BY TAKE 1 e MOUTH THREE MOUTH THREE TABLET BY TIMES DAILY TIMES DAILY MOUTH THREE TIMES DAILY Humulin Humulin No Humulin Vill[place] e 70/30 U-100 70/30 U-100 70/30 Family Insulin 100 Insulin 100 U-100 Practic unit/mL unit/mL Insulin e subcutaneou subcutaneou 100 s s unit/mL suspension suspension subcutaneo ADMINISTER ADMINISTER us 70 UNITS 70 UNITS suspension UNDER THE UNDER THE ADMINISTER SKIN EVERY SKIN EVERY 70 UNITS MORNING MORNING UNDER THE THEN THEN SKIN EVERY ADMINISTER ADMINISTER MORNING 60 UNITS 60 UNITS THEN UNDER THE UNDER THE ADMINISTER SKIN EVERY SKIN EVERY 60 UNITS EVENING EVENING UNDER THE SKIN EVERY EVENING hydralazine hydralazine No hydralazin [facility] 100 mg 100 mg e 100 mg Family tablet TAKE tablet TAKE tablet Practic 1 TABLET BY 1 TABLET BY TAKE 1 e MOUTH THREE MOUTH THREE TABLET BY TIMES DAILY TIMES DAILY MOUTH THREE TIMES DAILY hydrochloro hydrochloro No hydrochlor [facility] thiazide thiazide othiazide Fa davida 12.5 mg 12.5 mg 12.5 mg Practi c capsule capsule capsule e TAKE 1 TAKE 1 TAKE 1 CAPSULE BY CAPSULE BY CAPSULE BY MOUTH DAILY MOUTH DAILY MOUTH DAILY hydrocodone hydrocodone No hydrocodon [facility] 7.5 7.5 e 7.5 Family mg-acetamin mg-acetamin mg-acetami Practic ophen 325 ophen 325 nophen 325 e mg tablet mg tablet mg tablet TAKE 1 TAKE 1 TAKE 1 TABLET BY TABLET BY TABLET BY MOUTH EVERY MOUTH EVERY MOUTH 6 HOURS 6 HOURS EVERY 6 NEEDED FOR NEEDED FOR HOURS PAIN OR PAIN OR NEEDED FOR CHRONIC CHRONIC PAIN OR PAIN PAIN CHRONIC PAIN insulin insulin No insulin Villag e syringe syringe syringe Family U-100 with U-100 with U-100 with Practic needle 1 mL needle 1 mL needle 1 e 31 gauge x 31 gauge x mL 31 5/16" USE 5/16" USE gauge x TWICE DAILY TWICE DAILY 16" USE WITH MEALS WITH MEALS TWICE DAILY WITH MEALS [facility] bromide m bromide Fami ly 0.02 % 0.02 % 0.02 % Practic solution solution solution e for for for inhalation inhalation inhalation lisinopril lisinopril lisinopril [facility] 40 mg 40 mg 40 mg Family tablet TAKE tablet TAKE tablet Practic 1/2 TABLET 1/2 TABLET TAKE 1/2 e BY MOUTH BY MOUTH TABLET BY TWICE DAILY TWICE DAILY MOUTH TWICE DAILY mesalamine mesalamine No mesalamine [facility] ER 0.375 ER 0.375 ER 0.375 Fam ramses gram gram gram Practic capsule,ext capsule,ext capsule,ex e ended ended tended release 24 release 24 release 24 hr TAKE 4 hr TAKE 4 hr TAKE 4 CAPSULES BY CAPSULES BY CAPSULES MOUTH DAILY MOUTH DAILY BY MOUTH DAILY metformin metformin No metformin [facility] 1,000 mg 1,000 mg 1,000 mg Fam ramses tablet TAKE tablet TAKE tablet Practic 1 TABLET BY 1 TABLET BY TAKE 1 e MOUTH TWICE MOUTH TWICE TABLET BY DAILY WITH DAILY WITH MOUTH MEALS MEALS TWICE DAILY WITH MEALS metoprolol metoprolol No metoprolol [facility] tartrate tartrate tartrate Fam ramses 100 mg 100 mg 100 mg Practic tablet TAKE tablet TAKE tablet e 1 TABLET BY 1 TABLET BY TAKE 1 MOUTH TWICE MOUTH TWICE TABLET BY DAILY DAILY MOUTH TWICE DAILY Motegrity 2 Motegrity 2 No Motegrity [place] mg tablet mg tablet 2 mg Famil y TAKE 1 TAKE 1 tablet Practic TABLET BY TABLET BY TAKE 1 e MOUTH DAILY MOUTH DAILY TABLET BY MOUTH DAILY nitroglycer nitroglycer No nitroglyce [facility] in 0.4 mg in 0.4 mg rin 0.4 mg Family sublingual sublingual sublingual Practic tablet tablet tablet e PLACE [address] 1 TABLET TABLET TABLET UNDER THE UNDER THE UNDER THE TONGUE TONGUE TONGUE EVERY 5 EVERY 5 EVERY 5 MINUTES MINUTES MINUTES NEEDED FOR NEEDED FOR NEEDED FOR CHEST PAIN. CHEST PAIN. CHEST PAIN. ondansetron ondansetron No ondansetro [facility] HCl 4 mg HCl 4 mg n HCl 4 mg F amily tablet TAKE tablet TAKE tablet Practic 1 TABLET BY 1 TABLET BY TAKE 1 e MOUTH EVERY MOUTH EVERY TABLET BY 8 HOURS 8 HOURS MOUTH NEEDED NEEDED EVERY 8 HOURS NEEDED pantoprazol pantoprazol No pantoprazo [place] e 40 mg e 40 mg le 40 mg Famil y tablet,artem tablet,artem tablet,del Practic yed release yed release ayed e TAKE 1 TAKE 1 release TABLET BY TABLET BY TAKE 1 MOUTH DAILY MOUTH DAILY TABLET BY MOUTH DAILY prednisone prednisone No prednisone [facility] 10 mg 10 mg 10 mg Family tablet TAKE tablet TAKE tablet Practic 1 TABLET BY 1 TABLET BY TAKE 1 e MOUTH EVERY MOUTH EVERY TABLET BY DAY DAY MOUTH EVERY DAY spironolact spironolact No spironolac [facility] one 25 mg one 25 mg tone 25 mg Family tablet TAKE tablet TAKE tablet Practic 1 TABLET BY 1 TABLET BY TAKE 1 e MOUTH EVERY MOUTH EVERY TABLET BY DAY DAY MOUTH EVERY DAY sucralfate sucralfate No sucralfate [facility] 1 gram 1 gram 1 gram Family tablet TAKE tablet TAKE tablet Practic 1 TABLET BY 1 TABLET BY TAKE 1 e MOUTH TWICE MOUTH TWICE TABLET BY DAILY DAILY MOUTH TWICE DAILY Trelegy Trelegy No Trelegy Villag e Ellipta 100 Ellipta 100 Ellipta Family mcg-62.5 mcg-62.5 100 Practic mcg-25 mcg mcg-25 mcg mcg-62.5 e powder for powder for mcg-25 mcg inhalation inhalation powder for INHALE 1 INHALE 1 inhalation PUFF BY PUFF BY INHALE 1 MOUTH EVERY MOUTH EVERY PUFF BY DAY DAY MOUTH EVERY DAY TRUEplus TRUEplus No TRUEplus Dotty carolynn Insulin 1 Insulin 1 Insulin 1 Family mL 30 gauge mL 30 gauge mL 30 Practic x 5/16" x 5/16" gauge x e syringe USE syringe USE 16" TWICE DAILY TWICE DAILY syringe USE TWICE DAILY Victoza Victoza No Victoza Villag e 3-Patrick 0.6 3-Patrick 0.6 3-Patrick 0.6 Family mg/0.1 mL mg/0.1 mL mg/0.1 mL Practic (18 mg/3 (18 mg/3 (18 mg/3 e mL) mL) mL) subcutaneou subcutaneou subcutaneo s pen s pen us pen injector injector injector INJECT INJECT INJECT 1.8MG UNDER 1.8MG UNDER 1.8MG THE SKIN THE SKIN UNDER THE DAILY DAILY SKIN DAILY Immunizations Ordered Filled Immunization Date Status Comments [facility] e Immunization Name Name SARS-COV-2 COVID-19 2021-07-11 Completed Unive rsity of MODERNA VACCINE 00:00:00 [facility] SARS-COV-2 COVID-19 2021-07-11 Completed Unive rsity of MODERNA VACCINE 00:00:00 [facility] SARS-COV-2 COVID-19 2021-07-11 Completed Unive rsity of MODERNA VACCINE 00:00:00 [facility] SARS-COV-2 COVID-19 2021-07-11 Completed Unive rsity of MODERNA VACCINE 00:00:00 [facility] SARS-COV-2 COVID-19 2021-07-11 Completed Unive rsity of MODERNA VACCINE 00:00:00 [facility] SARS-COV-2 COVID-19 2021-07-11 Completed Unive rsity of MODERNA VACCINE 00:00:00 [facility] SARS-COV-2 COVID-19 2021-01-01 Completed Unive rsity of MODERNA VACCINE 00:00:00 [facility] ical Branch SARS-COV-2 COVID-19 2021-01-01 Completed Unive rsity of MODERNA VACCINE 00:00:00 [facility] ical Branch SARS-COV-2 COVID-19 2021-01-01 Completed Unive rsity of MODERNA VACCINE 00:00:00 [facility] ical Branch SARS-COV-2 COVID-19 2021-01-01 Completed Unive rsity of MODERNA VACCINE 00:00:00 [facility] ical Branch SARS-COV-2 COVID-19 2021-01-01 Completed Unive rsity of MODERNA VACCINE 00:00:00 [facility] SARS-COV-2 COVID-19 2021-01-01 Completed Unive rsity of MODERNA VACCINE 00:00:00 [facility] ical Branch SARS-COV-2 COVID-19 2021-01-01 Completed Unive rsity of MODERNA VACCINE 00:00:00 [facility] SARS-COV-2 COVID-19 2020-12-03 Completed Unive rsity of MODERNA VACCINE 00:00:00 [facility] SARS-COV-2 COVID-19 2020-12-03 Completed Unive rsity of MODERNA VACCINE 00:00:00 [facility] SARS-COV-2 COVID-19 2020-12-03 Completed Unive rsity of MODERNA VACCINE 00:00:00 [facility] SARS-COV-2 COVID-19 2020-12-03 Completed Unive rsity of MODERNA VACCINE 00:00:00 [facility] SARS-COV-2 COVID-19 2020-12-03 Completed Unive rsity of MODERNA VACCINE 00:00:00 [facility] SARS-COV-2 COVID-19 2020-12-03 Completed Unive rsity of MODERNA VACCINE 00:00:00 [facility] SARS-COV-2 COVID-19 2020-12-03 Completed Unive rsity of MODERNA VACCINE 00:00:00 [facility] Influenza Virus 2020-11-13 Completed Universit y of Vaccine Quad .5 mL 00:00:00 [facility] 6+ MO Branch Influenza Virus 2020-11-13 Completed Universit y of Vaccine Quad .5 mL 00:00:00 [facility] 6+ MO Branch Influenza Virus 2020-11-13 Completed Universit y of Vaccine [place] .5 mL 00:00:00 [facility] 6+ MO Branch Influenza Virus 2020-11-13 Completed Universit y of Vaccine [place] .5 mL 00:00:00 [facility] 6+ MO Branch Influenza Virus 2020-11-13 Completed Universit y of Vaccine [place] .5 mL 00:00:00 [facility] 6+ MO Branch Influenza Virus 2020-11-13 Completed Universit y of Vaccine [place] .5 mL 00:00:00 [facility] 6+ MO Branch Influenza Virus 2020-11-13 Completed Universit y of Vaccine [place] .5 mL 00:00:00 [facility] IM 6+ MO Branch Vital Signs Vital Name Observation Time Observation Value Comments Source Systolic blood 2021-09-18 14:42:00 127 mm[Hg] Univer [facility] Diastolic blood 2021-09-18 14:42:00 82 mm[Hg] Unive [facility] Heart rate 2021-09-18 14:42:00 68 /min [facility] Body weight 2021-09-18 14:42:00 151.91 kg [facility] BMI 2021-09-18 14:42:00 59.32 kg/m2 [facility] BP Diastolic 2021-08-21 00:00:00 89 mm[Hg] [facility] Height 2021-08-21 00:00:00 63 [in_i] [facility] BMI (Body Mass 2021-08-21 00:00:00 58.1 kg/m2 Vill e Family Index) Practice BP Systolic 2021-08-21 00:00:00 131 mm[Hg] [facility] Body Weight 2021-08-21 00:00:00 328 [lb_av] [facility] Procedures Procedure Date / Time Performing Clinician Source Performed PAIN MANAGEMENT 2021-02-12 05:01:00 Doctor Unassigned, No [facility] AGREEMENT & INFORMED Name Medical Bra nch CONSENT Knee Surgery [facility] Procedure on Shoulder [facility] Fa davida Practice Maintenance of Gastric [place] F amily Band Practice Gallbladder [facility] Plan of Care Planned Activity Planned Date Details Comments Source Future Scheduled 2021-11-13 [facility]00 (procedure) [code = Medical Branch 623542352] Future Scheduled 2020-12-28 [facility] (procedure) [code = Medical Branch 61795937] Future Scheduled 2020-12-28 Calculated low density U [facility] Test 00:00:00 lipoprotein Medical Branch cholesterol level (procedure) [code = 633186033] Future Scheduled 2020-06-27 Hemoglobin A1c [facility] Test 00:00:00 measurement Medical Branch (procedure) [code = 05669283] Future Scheduled 2020-04-18 Diabetic foot [facility] Test 00:00:00 examination Medical Branch (regime/therapy) [code = 214276491] Future Scheduled 2019-09-16 Examination of [facility]00 (procedure) [code = Medical Branch 717780953] Future Scheduled [address] [facility] Test 00:00:00 blood in feces Medical Branc h (procedure) [code = 987650189] Future Scheduled 2017 Stool DNA-based [facility] Test 00:00:00 colorectal cancer Medical Br anch screening (procedure) [code = 409595705368093] Future Scheduled 2017 Flexible fiberoptic [facility] Test 00:00:00 sigmoidoscopy Medical Branch (procedure) [code = 34299966] Future Scheduled 2017 Screening for [facility] Test 00:00:00 malignant neoplasm of Medica l Branch colon (procedure) [code = 930429744] Future Scheduled 2017 Screening for [facility] Test 00:00:00 malignant neoplasm of Medica l Branch colon (procedure) [code = 336716271] Future Scheduled 2017 Zoster Recombinant Unive [facility] Test 00:00:00 Vaccine (SHINGRIX) (1 Medica l Branch of 2) [code = Zoster Recombinant Vaccine (SHINGRIX) (1 of 2)] Future Scheduled 2007 Screening for [facility] Test 00:00:00 malignant neoplasm of Medica l Branch breast (procedure) [code = 830630098] Future Scheduled 1988 Screening for [facility] Test 00:00:00 malignant neoplasm of Medica l Branch cervix (procedure) [code = 076985289] Future Scheduled 1986 DTaP,Tdap,and Td Univers [facility] Test 00:00:00 Vaccines (1 - Tdap) Medical Branch [code = DTaP,Tdap,and Td Vaccines (1 - Tdap)] Future Scheduled 1977 Microalbumin [facility] Test 00:00:00 measurement, urine, Medical Branch quantitative (procedure) [code = 028614123] Encounters Start End Encounter Admission Attending Care Care Encounter Source Date/Time Date/Time Type Type Clinicians Facility Department ID 2020-08-22 Inpatient Tapan Martin [facility] [id number] [facility] 11:00:00 [id number] [facility] 2019-12-13 Inpatient Kaur, [facility] [id number] [facility] 07:00:00 Cas [id number] [facility] 2019-12-11 Inpatient Kaur, [facility] [id number] [facility] 07:30:00 Cas [facility] 2019-12-07 Inpatient EL Kaur, [facility] [id number] [facility] 10:00:00 Cas [facility] 2022-03-18 2022-03-18 Outpatient Leona PEREIRA WADERREK [facility] [id number] Univers 09:30:00 09:30:00 NEREIDA [id number] [facility] 2021-11-06 2021-11-06 Outpatient JAYESH CUEVAS [facility] [id number] [facility] 13:24:51 16:22:30 DEWAYNEBRAD Covarrubias e of Medicin e 2021-11-06 2021-11-06 Rohith Pereira [facility] [id number] Univers 00:00:00 00:00:00 [facility] [id number] [facility] [id number] Frankie as JAVIER?BLEA [phone] [address] MEDICAL OFFICE BUILDING 2021-10-27 2021-10-27 Rohith Pereira [facility] [id number] Univers 00:00:00 00:00:00 [facility] [id number] it y of [place] [id number] Frankie as PROFESSIO [phone] Ri dical NAL 044 [facility] ONE 2021-10-16 2021-10-16 [facility] [id number] Univers 00:00:00 00:00:00 [facility] [id number] it y of [place] [id number] Frankie as PROFESSIO [phone] Ri dical NAL 044 [facility] ONE 2021-10-11 2021-10-11 Outpatient Aguilar_M VFP VFP [id number] [facility] 06:17:00 06:17:00 [id number] Family Practic e 2021-10-07 2021-10-07 [facility] [id number] Univers 00:00:00 00:00:00 [facility] [id number] it y of [place] [id number] Frankie as JAVIER?BLEA [phone] Ri dical KNEY [address] [place] [address] OFFICE [facility] 2021-10-03 2021-10-03 Outpatient Aguilar_M VFP VFP [id number] [facility] 05:34:00 05:34:00 [id number] Family Practic e 2021-09-29 2021-09-29 [facility] [id number] Univers 00:00:00 00:00:00 [facility] [id number] it y of SURGICAL [id number] Frankie as SPECIALTI [phone] Ri dical ES 198 [facility] 2021-09-18 2021-09-18 [facility] 1.2.840.114 [id number] Univers 08:40:07 08:55:07 Visit [facility] [id number] it y of [place] [id number] Frankie as JAVIER?BLEA [phone] Ri dical KNEY 044 [facility] OFFICE BUILDING 2021-09-18 2021-09-18 Outpatient Leona PEREIRA [facility] [id number] Univers 10:15:00 08:52:38 NEREIDA ignacio [facility] 2021-08-21 2021-08-21 Outpatient Robbir_M VFP VFP [id number] 03:04:00 03:04:00 [id number] Family Practic e 2021-08-21 2021-08-21 Yousuf P [place] - [id number] V illage 00:00:00 00:00:[address] [facility] Pract brando MD: [address] [place] [address] , Ph. 2021-08-20 2021-08-20 Outpatient Alvarez_R VFP [facility] [id number] [place] [address] 04:30:00 04:30:00 [id number] Family [facility] e 2021-03-26 2021-03-26 [facility]addie [facility] [id number] 00:00:00 00:00:00 [facility] [id number] [place] [id number] Professio [phone] [place] [address] [address] One 2021-03-25 2021-03-25 [facility] 1.2.840.114 [id number] 00:00:00 00:00:00 [facility] [id number] [place] [id number] Professio [phone] [place] [address] Office [address] One 2021-03-18 2021-03-18 [facility]kin [facility] [id number] 00:00:00 00:00:00 Nereida [place] [id number] [place] [id number] Professio [phone] [place] [address] Building 2021-03-13 2021-03-13 Telephone [facility] [id number] 00:00:00 00:00:00 [facility] [id number] [place] [id number] Professio [phone] [place] [address] Office [address] One 2020-08-23 2020-08-23 Outpatient Tapan Martin [facility] LA4 [facility] 15:14:00 15:14:00 [id number] [facility] 2019-10-27 2019-10-27 Outpatient Leona KAUR [facility] [id number] Univers 09:55:58 23:59:00 CAS pierre [facility] Results Test Description Test Time Test Comments Results Result Comments Source SURG 2020-08-26 14:57:00 Test Item Value Reference Range Interpretation Comme nts SURG RUN DATE: (test 08/26/20 H TIFFANIE [facility] PAGE 1 RUN TIME: 8496 code = Specimen Inquiry RUN USER: INTERFACE SURG) PATIENT: PEPE MACK LOC: ANDI #: [id number] AGE/SX: 55/ F ROOM: RE08/23/20REG DR: Tapan Harper MD : 69 BED: DIS: STATUS: [facility]P [facility] TLOC: SPEC #: [id number] RECD: STATUS: KRISTIN [place] #: [id number] AN: 08/23/[address]: Tapan Harper MD ENTERED: 08/23/20 SP TYPE: SURG OTHR DR: Trent Irving DO ORDERED: SURG PATH LVL 02/01 COPIES TO: Trent Irving DO [address] [place] [address] Tapan Harper MD [address] [place], [place] [address] HISTOLOGY: TI SSUE ID [id number] PCS DIANE [...] R10.84; K59.00 CPT CODES CPT CODE (S): 65611D3 , , , , , , FINAL DIAGNOSIS A. Colon, right, biopsy: COLONIC MUCOSA WITH NO PATHOLOGIC DIAGNOSIS B. Colon, m id, biopsy: COLONIC MUCOSA WITH NO PATHOLOGIC DIAGNOSIS CONTINUED ON NEXT PAGE RUN DATE: 08/26/20 [facility] - LAB PAGE 2 RUN TIME: 1457 Specimen Inquiry RUN USER: INTERFACE SPEC #: [facility]:[id number] PATIENT: PEPE MACK #[id number] (Continued) FINAL DIAGNOSIS (Continued) C. Colon, left, [...] all as C. ba/nr Grossing performed at [facility] Pathology, [address] [place] [address], [address], [place] [address]. Fire Extinguisher Mechanic: Leeroy Jimenes M.D. MICROSCOPIC DESCRIPTION A. Right [...] 08/26/20 1457 END OF REPORT GLUCOSE BEDSIDE [id number] 08:29:00 Test Item Value Reference Range Interpretation Comments GLUCOSE BEDSIDE TESTING (test code 156 mg/dL 70-110 H = GLUBED) BASIC METABOLIC [id number] 12:40:00 Test Item Value Reference Range Interpretation [...] CA) 9.0 MG/DL 8.5-10.1 N BASIC METABOLIC [id number] 12:37:00 Test Item Value Reference Range Interpretation [...] 9.0 MG/DL 8.5-10.1 N COVID 19 INHOUSE [id number] 12:37:00 Test Item Value Reference Range Interpretation Comments COVID 19 INHOUSE AG NEGATIVE Negative Per manu facturer, (test code = negative result s should [id number]) be treated aspr esumptive and, if inconsi [...] symptoms co nsistent with COVID-19. CBC W/AUTO [id number] 12:23:00 Test Item Value Reference Range Interpretation [...] REQUIRED (test code NO DIFF/SCN CRITERIA = MDIFF) [id number] 15:34:00 RUN DATE: 12/13/19 [facility] PAGE 1 RUN TIME: 1535 Specimen Inquiry RUN USER: INTERFACE PATIENT: PEPE MACK LOC: GLADYS U #: [id number] AGE/SX: 54/F ROOM: RE12/11/19REG DR: Cas Kaur MD : 69 BED: DIS: STATUS: [facility] TLOC: SPEC #: [id number] RECD: 12/11/19 STATUS: KRISTIN RE #: [id number] AN: 12/11/[address] [facility] [address]: Cas Kaur MD ENTERED: 12/11/19 SP TYPE: SURG OTHR DR: Trent Irving DO ORDERED: SURG PATH LVL 01/31 COPIES TO: Trent Irving DO [address] [place] [address] Cas Kaur MD [address] [place] [address] HISTOLOGY: TISSUE ID [id number] PCS DIANE LEV PROCEDURE DISPOSITION ____ ___ ___ ___ GASTRIC ANTRUM A 1 3 GASTRIC ANTRUM B 1 3 PROCEDURES: SURG PATH LVL 4 (02/10/20-1054) TISSUES: A. GASTRIC ANTRUM - GASTRIC BIOPSY B. GASTRIC ANTRUM - DISTAL GASTRIC BIOPSY CLINICAL HISTORY EPIGASTRIC PAIN -R10.13; NAUSEA -R11.0; VOMITING -R11.10 CPT CODES CPT CODE(S): 32647J2 , , , , , , FINAL DIAGNOSIS A. Stomach, biopsy: MILD CHRONIC GASTRITIS NEGATIVE FORINTESTINAL METAPLASIA, DYSPLASIA, OR MALIGNANCY NEGATIVE FOR HELICOBACTER PYLORI ORGANISMS B. Stomach, distal, biopsy: MILD CHRONIC GASTRITIS NEGATIVE FOR INTESTINAL METAPLASIA, DYSPLASIA, OR MALIGNANCY CONTINUED ON NEXT PAGE RUN DATE: 12/13/19 [facility] PAGE 2 RUN TIME: 1535 Specimen Inquiry RUN USER: INTERFACE SPEC #: [id number] PATIENT: FREDERICKPEPE #[id number] (Continued)---- -------- FINAL DIAGNOSIS (Continued) NEGATIVE FOR HELICOBACTER PYLORI ORGANISMS GROSS DESCRIPTION A. Gastric biopsy. Received in formalin is a vazquez tissue fragment, 0.5 cm, all as A.B. Distal gastric biopsy. Received in formalin is a vazquez tissue fragment, 0.3 cm, all as B. shivam/nr Grossing performed at [facility] Pathology, [address] [facility] [facility], [address], [place], [place]. Fire Extinguisher Mechanic: Leeroy Jimenes M.D. MICROSCOPIC DESCRIPTION A. Gastric [...] organisms are identified. Signed SIGNATURE ON FILE KellyCarlos M 12/13/19 1534 END OF REPORT GLUCOSE BEDSIDE [id number] 06:17:00 Test Item Value Reference Range Interpretation Comments GLUCOSE BEDSIDE TESTING (test code 170 mg/dL 70-110 H = GLUBED) UR HCG [id number] 11:12:00 Test Item Value Reference Range Interpretation Comments UR HCG QUAL (test code = HCGQLU) NEGATIVE NEGATIVE
[2021-11-11] MEDS ORDERED: EPINEPHRINE/PF 1 MG/ML AMP ONE (21:28)
[2021-11-11] MEDS ORDERED: DIPHENHYDRAMINE 50 MG/ML VIAL ONE (21:29)
[2021-11-11] MEDS ORDERED: METHYLPREDNISOLONE 125 MG INJ ONE (21:29)
[2021-11-11] MEDS ORDERED: ONDANSETRON 4 MG/2 ML VIAL ONE (21:38)
[2021-11-11] MEDS ORDERED: NA CHLORIDE 0.9% 1,000 ML ONE (21:47)
--- NOTE | 2021-11-12 00:36 | EDPHYS ---
Physician Documentation [facility] Name: Maria De Jesus Acosta Age: 56 yrs Sex: Female : 1965 Arrival Date: 11/11/2021 Time: 20:50 Bed 19 Private MD: ED Physician Renan Alvarez HPI: 11/11 22:04 This 56 yrs old Female presents to ER via Ambulatory with complaints of sp3 Allergic Reaction. 22:04 56-year-old female with a history of COPD, diabetes, hypertension, CHF, asthma and sp3 prior history of allergic reaction to certain citrus fruits presents to the ED with chief complaint allergic reaction after eating a kiwi. Patient states that a few minutes after she had the kiwi she started to have hives on her body as well as mild swelling in her throat as well as difficulty breathing and body itching. Patient states that this type of reaction is consistent with her prior other food allergies. Patient does not have an EpiPen and is never been intubated for her allergies in the past. Currently symptoms are mildly improved but still present after she took p.o. Benadryl prior to arrival.. 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 kd3 Historical: - Allergies: 21:05 Doxycycline; kd3 21:05 metoclopramide HCl; kd3 21:05 orange juice; kd3 - Home Meds: 21:05 alprazolam 2 mg Oral tab 3 times per day [Active]; Ambien 10 mg Oral tab [Active]; kd3 amlodipine 10 mg tab 1 tab once daily [Active]; atorvastatin 40 mg Oral tab 1 tab once daily [Active]; clonidine HCl 0.2 mg Oral tab 1 tab 3 times per day [Active]; furosemide 20 mg Oral tab 1 tab once daily [Active]; gabapentin 600 mg Oral tab 1 tab 3 times per day [Active]; Humulin 70/30 100 unit/mL (70-30) Sub-Q susp [Active]; hydralazine 100 mg Oral tab [Active]; Hydrochlorothiazide Oral once daily [Active]; lisinopril 40 mg Oral tab twice a day [Active]; metformin 1,000 mg Oral tab 2 times per day [Active]; metoprolol tartrate 100 mg Oral tab 1 tab 2 times per day [Active]; [place]ais 7.5-325 mg Oral tab 1 tab every 4 hours [Active]; Norvasc Oral once daily [Active]; Victoza 3-Ze 0.6 mg/0.1 mL (18 mg/3 mL) subcutaneous pnij [Active]; Zoloft 25 mg Oral tab 1 tab once daily [Active]; - PMHx: 21:05 Asthma; CHF; COPD; Crohn's; Diabetes - NIDDM; Hypertension; kd3 - Immunization history:: Adult Immunizations up to date. - Social history:: Smoking status: Patient/guardian denies using tobacco, the patient reports quitting approximately 40 years ago. ROS: 22:05 Eyes: Negative for injury, pain, redness, and discharge, ENT: Negative for injury, sp3 pain, and discharge, Cardiovascular: Negative for chest pain, palpitations, and edema, Abdomen/GI: Negative for abdominal pain, nausea, vomiting, diarrhea, and constipation, Back: Negative for injury and pain, Neuro: Negative for headache, weakness, numbness, tingling, and seizure, Psych: Negative for depression, anxiety, suicide ideation, homicidal ideation, and hallucinations. 22:05 ENT: Positive for See HPI. Patient states that she has mild pharyngeal swelling.. 22:05 Allergy/Immunology: Positive for Hives. Exam: 22:06 Head/Face: Normocephalic, atraumatic. Eyes: Pupils equal round and reactive to light, sp3 extra-ocular motions intact. Lids and lashes normal. Conjunctiva and sclera are non-icteric and not injected. Cornea within normal limits. Periorbital areas with no swelling, redness, or edema. Neck: Trachea midline, no thyromegaly or masses palpated, and no cervical lymphadenopathy. Supple, full range of motion without nuchal rigidity, or vertebral point tenderness. No Meningismus. Chest/axilla: Normal chest wall appearance and motion. Nontender with no deformity. No lesions are appreciated. Abdomen/GI: Soft, non-tender, with normal bowel sounds. No distension or tympany. No guarding or rebound. No evidence of tenderness throughout. Back: No spinal tenderness. No costovertebral tenderness. Full range of motion. MS/ Extremity: Pulses equal, no cyanosis. Neurovascular intact. Full, normal range of motion. Neuro: Awake and alert, GCS 15, oriented to person, place, time, and situation. Cranial nerves II-XII grossly intact. Motor strength 5/5 in all extremities. Sensory grossly intact. Cerebellar exam normal. Normal gait. Psych: Awake, alert, with orientation to person, place and time. Behavior, mood, and affect are within normal limits. 22:06 ENT: No swelling noted on visualization of the oropharynx.. 22:06 Cardiovascular: Normal cardiac exam other than tachycardia.. 22:06 Respiratory: Mild diffuse wheezes noted. Patient is tachypneic at 18 to 22 breaths/min. Pulse ox on room air is between 91 and 93% with a good waveform.. 22:06 Skin: Patient has diffuse hives/urticaria.. Vital Signs: 20:59 BP 165 / 111; Pulse 106; Resp 21; Temp 98.2; Pulse Ox 94% on R/A; Pain 0/10; kd3 21:21 BP 158 / 98; kd3 23:51 BP 166 / 86; Pulse 89; Resp 17; Pulse Ox 92% on NC; kd3 11/12 00:49 BP 172 / 87; Pulse 86; Resp 18; Pulse Ox 92% on NC; kd3 MDM: 11/11 21:42 Patient medically screened. sp3 22:07 Data reviewed: vital signs, nurses notes. ED course: 56-year-old female with a moderate sp3 allergic reaction to kiwi fruit. Will administer subcutaneous epinephrine 0.3 mg as well as IV Benadryl, Solu-Medrol, and ondansetron plus IV fluids. Patient is not currently anaphylactic but is having a severe histamine mediated reaction. Once patient's symptoms are improved, patient would likely be discharged on oral steroids as well as an EpiPen x2 coupled with proper education.. 11/12 00:33 ED course: From an allergy standpoint patient feels better. Patient was satting at 86% sp3 on room air and was placed on 3 L nasal cannula which is what she has at home. Given her worsening respiratory status, COVID-19 test was ordered along with a chest x-ray. COVID test is positive and chest x-ray demonstrates no significant infiltrates or bilateral groundglass opacities. This patient has O2 at home and feels better, we will discharge her home on prednisone for her allergic reaction as well as an EpiPen. Patient to follow-up with her PCP as needed and has been told to let her close contacts know about getting further tested and to be isolated for the next 5 days minimum.. 11/11 23:31 Order name: COVID-19 SARS RT PCR (Document "Date of Onset" if Symptomatic) mw2 11/11 23:31 Order name: XRAY Chest (1 view) sp3 11/11 21:42 Order name: IV Start; Complete Time: 21:44 sp3 11/11 21:42 Order name: NPO; Complete Time: 21:44 sp3 Administered Medications: 11/11 21:44 Drug: Zofran (Ondansetron) 4 mg Route: IVP; Site: right antecubital; kd3 21:44 Drug: EPINEPHrine 1mg/mL 1:1,000 0.3 ml Route: Sub-Q; Site: right upper arm; kd3 21:45 Drug: Benadryl (diphenhydrAMINE) 25 mg Route: IVP; Site: right antecubital; kd3 21:45 Drug: SOLU-Medrol (methylPrednisoLONE) 125 mg Route: IVP; Site: right antecubital; kd3 21:53 Drug: NS 0.9% 1000 ml Route: IV; Rate: 125 ml/hr; Site: right antecubital; kd3 Disposition Summary: 11/12/21 00:35 Discharge Ordered Location: Home sp3 Condition: Stable sp3 Diagnosis - Acute allergic reaction sp3 - SARS-associated coronavirus as the cause of diseases classified elsewhere sp3 Followup: sp3 - With: Private Physician - When: As needed - Reason: Continuance of care Discharge Instructions: - Discharge Summary Sheet sp3 - Food Allergy sp3 - COVID-19 sp3 Forms: - Medication Reconciliation Form sp3 - Thank You Letter sp3 - Antibiotic Education sp3 - Prescription Opioid Use sp3 Prescriptions: - EpiPen 2-Ze - inject 1 application by SUBCUTANEOUS route one time; 2 Applicator; Refills: 0, sp3 Product Selection Permitted - Prednisone 20 mg Oral Tablet - take 2 tablets by ORAL route once daily for 5 days; 10 tablet; Refills: 0, sp3 Product Selection Permitted Signatures: Dispatcher [employer] Renan Perry MD MD sp3 Nohelia Wadsworth, RN RN kd3
--- NOTE | 2021-11-12 00:36 | ER ---
Nurse's Notes [facility] Name: Maria De Jesus Acosta Age: 56 yrs Sex: Female : 1965 Arrival Date: 11/11/2021 Time: 20:50 Bed 19 Private MD: Diagnosis: Acute allergic reaction;SARS-associated coronavirus as the cause of diseases classified elsewhere Presentation: 11/11 20:59 Chief complaint: Patient states: pt states she had eaten kiwi, approximately 45 minutes kd3 ago and instantly stared feeling itchy all over her body and had sob. pt attempted to take a Benadryl, unknown dose when the symptoms started with no relief. Coronavirus screen: Vaccine status: Patient reports receiving the 2nd dose of the covid vaccine. Ebola Screen: No symptoms or risks identified at this time. Onset: The symptoms/episode began/occurred acutely. Anaphylaxis evaluation, the patient reports or I have noted the following symptoms which indicate a significant risk of anaphylaxis: shortness of breath. Initial Sepsis Screen: Does the patient meet any 2 criteria? No. Patient's initial sepsis screen is negative. Does the patient have a suspected source of infection? No. Patient's initial sepsis screen is negative. Risk Assessment: Do you want to hurt yourself or someone else? Patient reports no desire to harm self or others. Onset of symptoms was November 11, 2021. 20:59 Method Of Arrival: Ambulatory kd3 20:59 Acuity: EMERALD 4 kd3 Triage Assessment: 21:05 General: Appears in no apparent distress. uncomfortable, Behavior is calm, cooperative, kd3 appropriate for age. 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 Historical: - Allergies: 21:05 Doxycycline; kd3 21:05 metoclopramide HCl; kd3 21:05 orange juice; kd3 - Home Meds: 21:05 alprazolam 2 mg Oral tab 3 times per day [Active]; Ambien 10 mg Oral tab [Active]; kd3 amlodipine 10 mg tab 1 tab once daily [Active]; atorvastatin 40 mg Oral tab 1 tab once daily [Active]; clonidine HCl 0.2 mg Oral tab 1 tab 3 times per day [Active]; furosemide 20 mg Oral tab 1 tab once daily [Active]; gabapentin 600 mg Oral tab 1 tab 3 times per day [Active]; Humulin 70/30 100 unit/mL (70-30) Sub-Q susp [Active]; hydralazine 100 mg Oral tab [Active]; Hydrochlorothiazide Oral once daily [Active]; lisinopril 40 mg Oral tab twice a day [Active]; metformin 1,000 mg Oral tab 2 times per day [Active]; metoprolol tartrate 100 mg Oral tab 1 tab 2 times per day [Active]; [place] 7.5-325 mg Oral tab 1 tab every 4 hours [Active]; Norvasc Oral once daily [Active]; Victoza 3-Ze 0.6 mg/0.1 mL (18 mg/3 mL) subcutaneous pnij [Active]; Zoloft 25 mg Oral tab 1 tab once daily [Active]; - PMHx: 21:05 Asthma; CHF; COPD; Crohn's; Diabetes - NIDDM; Hypertension; kd3 - Immunization history:: Adult Immunizations up to date. - Social history:: Smoking status: Patient/guardian denies using tobacco, the patient reports quitting approximately 40 years ago. Screenin:03 Abuse screen: Denies threats or abuse. Denies injuries from another. Nutritional kd3 screening: No deficits noted. Tuberculosis screening: No symptoms or risk factors identified. Fall Risk None identified. Assessment: 21:03 Pain: Denies pain. Respiratory: Airway is patent Respiratory effort is even, unlabored, kd3 Breath sounds are clear bilaterally. 21:20 Neuro: No deficits noted. Level of Consciousness is awake, alert, obeys commands, kd3 Oriented to person, place, time, situation. Cardiovascular: No deficits noted. 22:43 Reassessment: Patient is alert, oriented x 3, equal unlabored respirations, skin kd3 warm/dry/pink. Patient states feeling better. Vital Signs: 20:59 BP 165 / 111; Pulse 106; Resp 21; Temp 98.2; Pulse Ox 94% on R/A; Pain 0/10; kd3 21:21 BP 158 / 98; kd3 23:51 BP 166 / 86; Pulse 89; Resp 17; Pulse Ox 92% on NC; kd3 11/12 00:49 BP 172 / 87; Pulse 86; Resp 18; Pulse Ox 92% on NC; kd3 ED Course: 11/11 20:50 Patient arrived in ED. kc5 20:59 Nohelia Wadsworth, RN is Primary Nurse. kd3 21:03 Triage completed. kd3 21:05 Arm band placed on right wrist. kd3 21:08 Patient has correct armband on for positive identification. Placed in gown. Bed in low kd3 position. Call light in reach. 21:10 Renan Alvarez MD is Attending Physician. sp3 21:20 Inserted saline lock: 22 gauge in right antecubital area, using aseptic technique. kd3 11/12 00:14 XRAY Chest (1 view) In Process Unspecified. EDMS 00:48 No provider procedures requiring assistance completed. IV discontinued, intact, kd3 bleeding controlled, No redness/swelling at site. Pressure dressing applied. Administered Medications: 11/11 21:44 Drug: Zofran (Ondansetron) 4 mg Route: IVP; Site: right antecubital; kd3 21:44 Drug: EPINEPHrine 1mg/mL 1:1,000 0.3 ml Route: Sub-Q; Site: right upper arm; kd3 21:45 Drug: Benadryl (diphenhydrAMINE) 25 mg Route: IVP; Site: right antecubital; kd3 21:45 Drug: SOLU-Medrol (methylPrednisoLONE) 125 mg Route: IVP; Site: right antecubital; kd3 21:53 Drug: NS 0.9% 1000 ml Route: IV; Rate: 125 ml/hr; Site: right antecubital; kd3 Outcome: 11/12 00:35 Discharge ordered by . sp3 00:49 Discharged to home ambulatory. kd3 00:49 Condition: stable 00:49 Discharge instructions given to patient, Instructed on discharge instructions, follow up and referral plans. medication usage, Demonstrated understanding of instructions, follow-up care, medications, Prescriptions given X 2. 00:53 Patient left the ED. kd3 Signatures: Dispatcher [employer] EDMS Renan Alvarez MD MD sp3 Nohelia Wadsworth, RN RN Domitila Norris kc5
[2021-11-12 01:31] VITALS: TEMP 98.2
[2021-11-12 01:41] VITALS: O2SAT 92
[2021-11-12 01:43] VITALS: BP 172/87
--- NOTE | 2021-11-12 08:42 | RAD REPORT ---
EXAM DESCRIPTION: RAD - Chest Single View - 11/12/2021 12:06 am CLINICAL HISTORY: COPD COMPARISON: Portable 04/02/2021 TECHNIQUE: AP portable chest image was obtained 11/12/2021 12:06 am . FINDINGS: No peripheral mass or consolidation. Portable technique and large body habitus result in i ncreased opacification across both lung platt. Interstitial markings are not clearly different from the comparison when adjusting for these factors. Trachea is midline. Heart and vasculature are normal. No measurable pleural effusion and no pneumotho rax. No acute bony abnormality seen. No acute aortic findings suspected. IMPRESSION: No acute cardiopulmonary process. No significant change from comparison study.
== END 2021-11-12 00:53 | disposition home or self-care (01) ==
LOC: ER 20:48
DX: L50.9 Urticaria, unspecified (principal); U07.1 COVID-19; Z91.018 Allergy to other foods; J44.9 Chronic obstructive pulmonary disease, unspecified; E11.9 Type 2 diabetes mellitus without complications; I10 Essential (primary) hypertension; Z79.4 Long term (current) use of insulin; Z88.1 Allergy status to other antibiotic agents; Z88.8 Allergy status to other drugs, medicaments and biological substances
CPT/HCPCS: 71045; 96375; 96372; 96374; 99284; U0003; J0171; J1200; J7030; J2930; J2405

== ENCOUNTER 2021-12-10 13:57 | Emergency (ER) | payer OTHER ==
--- OUTSIDE RECORDS SUMMARY | 2021-12-10 14:05 | XMS REPORT | Continuity of Care Document ---
:1965 Author Organization [facility] t Address [address] [place] [address] Care Team Providers Name Role Phone Jaziel GRIFFIN Primary Care Physician Rosalio Harper Attending Clinician Unavailable Julissa Kaur Attending Clinician Unavailable JAZIEL Attending Clinician Unavailable Jaziel GRIFFIN Attending Clinician ALVARO CUEVAS Attending Clinician Unavailable ALVARO CUEVAS Attending Clinician Unavailable Eri Attending Clinician Unavailable Mikaela GRIFFIN, L Attending Clinician Lm_Leona Attending Clinician Unavailable Doctor Unassigned, Name Attending Clinician Unavailable Julissa KAUR Attending Clinician Unavailable Vickie Irving Admitting Clinician Unavailable ALVARO CUEVAS Admitting Clinician Unavailable AguilaLove Admitting Clinician Unavailable Alvarez_R Admitting Clinician Unavailable Julissa KAUR Admitting Clinician Unavailable Payers Payer Name Policy Type Policy Number Effective Date Expiration Date Annette gonzalez MEDICARE A B [id number] 2014 00:00:00 MEDICAID OF [place] [id number] 2021 00:00:00 MEDICARE PART A [id number] \\T\\ B - MEDICARE [facility]-MEDICAID - [id number] [place] [id number] 2010 [employer] 00:00:00 [place] [id number] [place] Problems Condition Condition Condition Status Onset [...] Medical Branch Gastroesop Gastroesop Disease Active U gentryers hageal hageal 07-28 ity of reflux reflux [...] 07-28 ity of status status 00:00: [place] [facility] Hyperlipid Hyperlipid Disease Active U [...] ents Source Name Type Date Date Clinician Doxycycl Propensi Active [facility] in[facility] ty to 11-06 [place] adverse 00:00: of reaction 00 Medicin s to e drug Metoclop Propensi Active [facility] ramide ty to 11-06 [place] adverse 00:00: of reaction 00 Medicin s to e drug doxycycl DA Active [facility] [place] 00:[facility]: d 00 [facility] metoclop DA Active U 2019-0 [facility] ramide 2 [place] 00:00: d 00 [facility] doxycycl DA Active U VOMITING [facility] [place] 00:00: d 00 [facility] metoclop DA Active U UNKNOWN 0 [facility] ramide 2 [place] 00:00: d 00 [facility] [place] Propensi Active Nausea Univers ty to and/or 711 ity of adverse Vomiting 00:00: [place] reaction 00 Medical s Branch ORANGE DRUG Active N/V Univers INGREDI 711 ity of 00:00: [place] 00 Medical Branch ORANGE Allergy Active N\\T\\V [facility] 711 00:00: 00 Doxycycl Propensi Active Nausea Univer s ine [...] 3-16 ity of 00:00: [place] 00 Medical Branch METOCLOP DRUG Active Unknown-Cmnt Oscar CUMMINGS INGREDI 3-16 ity of HCL 00:00: [place] 00 Medical Branch DOXYCYCL Allergy Active N\\T\\V [facility] INE 3-16 00:00: 00 METOCLOP Allergy Active Other SLEVickie RAMIDE 16 00:00: 00 Doxycycl Allergy Active [place] [facility] sub[facility]anc Practic e e NO KNOWN Allergy Active [facility] Social History Social Habit Start Date Stop Date Quantity Comments Source History of tobacco Cigarette Smoker [facility] of use [place] [facility] Exposure to Not sure University of SARS-CoV-2 (event) [place] [facility] History [facility] o f Transport Non-Med [facility] edical Branch Tobacco use and 2021-11-06 2021-11-06 Smokeless [facility] Co llege of exposure 00:00:00 00:00:00 tobacco non-user Medicine Alcohol intake 2021-11-06 2021-11-06 Ex-drinker [facility] Col lege of 00:00:00 00:00:00 (finding) Medicine History SDFL Social 2019-08-25 2019-08-25 3 Unive rsity of Connections Phone 00:00:00 00:00:00 [facility] edical Branch History SDFL Social 2019-08-25 2019-08-25 1 [facility] Connections Get 00:00:00 00:00:00 [place] [facility] ical Together Branch History SDFL Social 2019-08-25 2019-08-25 1 Unive rsity of Connections Cheondoism 00:00:00 00:00:00 [place] [facility] History SDOH Social 2019-08-25 2019-08-25 2 Unive rsity of Connections 00:00:00 00:00:00 [place] [facility] Membership Branch History SDFL Social 2019-08-25 2019-08-25 1 Unive rsity of Connections 00:00:00 00:00:00 [place] [facility] Meetings Branch History SDFL Social 2019-08-25 2019-08-25 5 [facility] Connections Living 00:00:00 00:00:00 [place] [facility] History SDOH 2019-08-25 2019-08-25 0 University o f Physical Activity 00:00:00 00:00:00 [facility] edical DPW Branch History SDOH 2019-08-25 2019-08-25 0 University o f Physical Activity 00:00:00 00:00:00 [facility] edical MPS Branch History SDOH Stress 2019-08-25 [...] 1 Univers ity of Scarcity 00:00:00 00:00:00 [place] [facility] History SDOH 2019-08-25 2019-08-25 2 University o f Transport Med 00:00:00 00:00:00 [place] [facility] al [facility] Tobacco Comment 2019-08-25 2019-08-25 Started at 25- Unive rsity of 00:00:00 00:00:00 end at 42 [place] [facility] Cigarettes smoked 2018-05-10 2018-05-10 Univers ity of current (pack per 00:00:00 00:00:00 [facility] ed) - Reported Branch Sex [birth year] At [birth year] [facility] Co llege of 00:00:00 00:00:00 Medicine Smoking Status Start Date Stop Date Source Never smoked tobacco [facility] Hiro ege of Medicine Former smoker 2018-05-10 00:00:00 2018-05-10 00:00:00 [facility] ty of [place] [facility] Medications Ordered Filled Start Stop Current Ordering Indication Dosage Frequency Signature Comments Components Source Medication Medication Date Date Medication? Clinician (SIG) Name Name HYDROcodone 2021- Yes [id number] 1{tbl} Take 1 Un ally -acetaminop 2-07 tablet by ity of hen 7.5-325 00:00: mouth [place] mg per 00 every 6 Medical tablet (six) Branch hours as needed for Pain. Indication s: chronic pain HYDROCHLORO Yes [id number] 12.5mg TAKE 1 Univers THIAZIDE 1-19 CAPSULE BY ity o f 12.5 mg 00:00: MOUTH [place] capsule 00 DAILY Medical Branch LISINOPRIL 0 Yes [id number] TAKE 1/2 Univers 40 mg 1-19 TABLET BY ity of tablet 00:00: MOUTH [place] 00 TWICE Medical DAILY Branch HYDRALAZINE 0 Yes [id number] TAKE 1 Univers 100 mg 1-19 TABLET BY ity of tablet 00:00: MOUTH [place] 00 THREE Medical TIMES Branch DAILY HYDROCHLORO Yes [id number] 12.5mg TAKE 1 Univers THIAZIDE 1-19 CAPSULE BY ity o f 12.5 mg 00:00: MOUTH [place] capsule 00 DAILY Medical Branch LISINOPRIL 0 Yes [id number] TAKE 1/2 Univers 40 mg 1-19 TABLET BY ity of tablet 00:00: MOUTH [place] 00 TWICE Medical DAILY Branch HYDRALAZINE 0 Yes [id number] TAKE 1 Univers 100 mg 1-19 TABLET BY ity of tablet 00:00: MOUTH [place] 00 THREE Medical TIMES Branch DAILY HYDROcodone 0 Yes [id number] 1{tbl} Take 1 Un ally -acetaminop 1-06 tablet by ity of hen 7.5-325 00:00: mouth [place] mg per 00 every 6 Medical tablet (six) Branch hours as needed for Pain. Indication s: chronic pain HYDROcodone 2021-0 Yes [id number] 1{tbl} Take 1 Un ally -acetaminop 1-06 tablet by ity of hen 7.5-325 00:00: mouth [place] mg per 00 every 6 Medical tablet (six) Branch hours as needed for Pain. Indication s: chronic pain HYDROcodone 2021-0 Yes [id number] 1{tbl} Take 1 Un ally -acetaminop 1-06 tablet by ity of hen 7.5-325 00:00: mouth [place] mg per 00 every 6 Medical tablet (six) Branch hours as needed for Pain. Indication s: chronic pain Prucaloprid 0 Yes [id number] 2mg Take 2 mg [facility] e Succinate 1-06 by mouth Hiro ege 2 MG TABS 00:00: daily. of 00 Medicin e PEG-KCl-NaC Yes [id number] [MOVI B aylor l-NaSulf-Na 11-06 PREP] Take Co [facility]lege [facility] 00:00: as of (MOVIPREP) 00 directed. Medi patsy 100 g SOLR e HYDROcodone 2021- No [id number] 1{tbl} Take 1 U nivers -acetaminop 11-06 tablet by it y of hen 7.5-325 [...] NEEDED FOR CHEST PAIN. HYDRALAZINE 2020-11 Yes [id number] TAKE 1 Univers 100 mg 2-17 TABLET BY ity of tablet 00:00: MOUTH [place] 00 THREE Medical TIMES Branch DAILY HYDRALAZINE 2020-11 Yes [id number] TAKE 1 Univers 100 mg 2-17 TABLET BY ity of tablet 00:00: MOUTH [place] 00 THREE Medical TIMES Branch DAILY HYDRALAZINE 2020-11 Yes [id number] TAKE 1 Univers 100 mg 2-17 TABLET BY ity of tablet 00:00: MOUTH [place] 00 THREE Medical TIMES Branch DAILY HYDRALAZINE 2020-11 Yes [id number] TAKE 1 Univers 100 mg 2-17 TABLET BY ity of tablet 00:00: MOUTH [place] 00 THREE Medical TIMES Branch DAILY HYDRALAZINE 2020-11- No [id number] TAKE 1 Univers 100 mg 2-17 01-19 TABLET BY ity of tablet 00:00: 00:00 MOUTH [place] 00 :00 THREE Medical TIMES Branch DAILY HYDROcodone 2020-11 [...] Indication s: chronic pain DICLOFENAC 2020-11 Yes [id number] APPLY TO Univers SODIUM 1 % 2-02 THE ity of gel 00:00: AFFECTED [place] 00 AREA FOUR Medical TIMES Branch DAILY DICLOFENAC 2020-11 Yes [id number] APPLY TO Univers SODIUM 1 % 2-02 THE ity of gel 00:00: AFFECTED [place] 00 AREA FOUR Medical TIMES Branch DAILY DICLOFENAC 2020-11 Yes [id number] APPLY TO Univers SODIUM 1 % 2-02 THE ity of gel 00:00: AFFECTED [place] 00 AREA FOUR Medical TIMES Branch DAILY DICLOFENAC 2020-11 Yes [id number] APPLY TO Univers SODIUM 1 % 2-02 THE ity of gel 00:00: AFFECTED [place] 00 AREA FOUR Medical TIMES Branch DAILY DICLOFENAC 2020-11 Yes [id number] APPLY TO Univers SODIUM 1 % 2-02 THE ity of gel 00:00: AFFECTED [place] 00 AREA FOUR Medical TIMES Branch DAILY DICLOFENAC 2020-11 Yes [id number] APPLY TO Univers SODIUM 1 % 2-02 THE ity of gel 00:00: AFFECTED [place] 00 AREA FOUR Medical TIMES Branch DAILY DICLOFENAC 2020-11 Yes [id number] APPLY TO Univers SODIUM 1 % 2-02 THE ity of gel 00:00: AFFECTED [place] 00 AREA FOUR Medical TIMES Branch DAILY DICLOFENAC 2020-11 Yes [id number] APPLY TO Univers SODIUM 1 % 2-02 THE ity of gel 00:00: AFFECTED [place] 00 AREA FOUR Medical TIMES Branch DAILY metFORMIN 2020-11 Yes [id number] 1000mg Take 1 Univers 1,000 mg 1-18 tablet by ity of tablet 00:00: mouth (two) Medical times Branch daily with meals. metFORMIN 2020-11 Yes [id number] 1000mg Take 1 Univers 1,000 mg 1-18 tablet by ity of tablet 00:00: mouth (two) Medical times Branch daily with meals. metFORMIN 2020-11 Yes [id number] 1000mg Take 1 Univers 1,000 mg 1-18 tablet by ity of tablet 00:00: mouth (two) Medical times Branch daily with meals. metFORMIN 2020-11 Yes [id number] 1000mg Take 1 Univers 1,000 mg 1-18 tablet by ity of tablet 00:00: mouth (two) Medical times Branch daily with meals. metFORMIN 2020-11 Yes [id number] 1000mg Take 1 Univers 1,000 mg 1-18 tablet by ity of tablet 00:00: mouth (two) Medical times Branch daily with meals. metFORMIN 2020-11 Yes [id number] 1000mg Take 1 Univers 1,000 mg 1-18 tablet by ity of tablet 00:00: mouth (two) Medical times Branch daily with meals. metFORMIN 2020-11 Yes [id number] 1000mg Take 1 Univers 1,000 mg 1-18 tablet by ity of tablet 00:00: mouth (two) Medical times Branch daily with meals. metFORMIN 2020-11 Yes [id number] 1000mg Take 1 Univers 1,000 mg 1-18 tablet by ity of tablet 00:00: mouth 2 [place] 00 (two) Medical times Branch daily with meals. metFORMIN 2020-11 Yes [id number] 1000mg Take 1 Univers 1,000 mg 1-18 tablet by ity of tablet 00:00: mouth 2 [place] 00 (two) Medical times Branch daily with meals. [...] [id number] 1{tbl} Take 1 U nivers -acetaminop 11-09 tablet by it y of hen 7.5-325 00:00: 00:00 [place] mg per 00 :00 every 6 Medical tablet (six) Branch hours as needed for Pain. Indication s: chronic pain LISINOPRIL 2020-11 Yes [id number] TAKE 1/2 Univers 40 mg 1-04 TABLET BY ity of tablet 00:00: MOUTH [place] 00 TWICE Medical DAILY Branch LISINOPRIL 2020-11 Yes [id number] TAKE 1/2 Univers 40 mg 1-04 TABLET BY ity of tablet 00:00: MOUTH [place] 00 TWICE Medical DAILY Branch LISINOPRIL 2020-11 Yes [id number] TAKE 1/2 Univers 40 mg 1-04 TABLET BY ity of tablet 00:00: MOUTH [place] 00 TWICE Medical DAILY Branch LISINOPRIL 2020-11 Yes [id number] TAKE 1/2 Univers 40 mg 1-04 TABLET BY ity of tablet 00:00: MOUTH [place] 00 TWICE Medical DAILY Branch LISINOPRIL 2020-11 Yes [id number] TAKE 1/2 Univers 40 mg 1-04 TABLET BY ity of tablet 00:00: MOUTH [place] 00 TWICE Medical DAILY Branch LISINOPRIL 2020-11 Yes [id number] TAKE 1/2 Univers 40 mg 1-04 TABLET BY ity of tablet 00:00: MOUTH [place] 00 TWICE Medical DAILY Branch LISINOPRIL 2020-11 Yes [id number] TAKE 1/2 Univers 40 mg 1-04 TABLET BY ity of tablet 00:00: MOUTH [place] 00 TWICE Medical DAILY Branch LISINOPRIL 2020-11- No [id number] TAKE 1/2 Univers 40 mg 1-04 -19 TABLET BY ity of tablet 00:00: 00:00 MOUTH [place] 00 :00 TWICE Medical DAILY Branch HYDRALAZINE 2020-11 Yes [id number] TAKE 1 Univers 100 mg 0-22 TABLET BY ity of tablet 00:00: MOUTH [place] 00 THREE Medical TIMES Branch DAILY HYDRALAZINE 2020-11 Yes [id number] TAKE 1 Univers 100 mg 0-22 TABLET BY ity of tablet 00:00: MOUTH [place] 00 THREE Medical TIMES Branch DAILY HYDRALAZINE 2020-11 Yes [id number] TAKE 1 Univers 100 mg 0-22 TABLET BY ity of tablet 00:00: MOUTH [place] 00 THREE Medical TIMES Branch DAILY HYDRALAZINE 2020-11- No [id number] TAKE 1 Univers 100 mg 0-22 12-17 TABLET BY ity of tablet 00:00: 00:00 MOUTH [place] 00 :00 THREE Medical TIMES Branch DAILY colchicine 2020-11 Yes [id number] .6mg Take 1 U nivers 0.6 mg 0-07 tablet by ity of tablet 00:00: mouth [place] 00 daily. Medical Branch gabapentin 2020-11 Yes [id number] 600mg Take 1 Univers 600 mg 0-07 tablet by ity of tablet 00:00: mouth 3 [place] 00 (three) Medical times Branch daily. colchicine 2020-11 Yes [id number] .6mg Take 1 U nivers 0.6 mg 0-07 tablet by ity of tablet 00:00: mouth [place] 00 daily. Medical Branch gabapentin 2020-11 Yes [id number] 600mg Take 1 Univers 600 mg 0-07 tablet by ity of tablet 00:00: mouth 3 [place] 00 (three) Medical times Branch daily. colchicine 2020-11 Yes [id number] .6mg Take 1 U nivers 0.6 mg 0-07 tablet by ity of tablet 00:00: mouth [place] 00 daily. Medical Branch gabapentin 2020-11 Yes [id number] 600mg Take 1 Univers 600 mg 0-07 tablet by ity of tablet 00:00: mouth 3 [place] 00 (three) Medical times Branch daily. colchicine 2020-11 Yes [id number] .6mg Take 1 U nivers 0.6 mg 0-07 tablet by ity of tablet 00:00: mouth [place] 00 daily. Medical Branch gabapentin 2020-11 Yes [id number] 600mg Take 1 Univers 600 mg 0-07 tablet by ity of tablet 00:00: mouth 3 [place] 00 (three) Medical times Branch daily. colchicine 2020-11 Yes [id number] .6mg Take 1 U nivers 0.6 mg 0-07 tablet by ity of tablet 00:00: mouth [place] 00 daily. Medical Branch gabapentin 2020-11 Yes [id number] 600mg Take 1 Univers 600 mg 0-07 tablet by ity of tablet 00:00: mouth 3 (three) Medical times Branch daily. colchicine 2020-11 Yes [id number] .6mg Take 1 U nivers 0.6 mg 0-07 tablet by ity of tablet 00:00: mouth [place] 00 daily. Medical Branch gabapentin 2020-11 Yes [id number] 600mg Take 1 Univers 600 mg 0-07 tablet by ity of tablet 00:00: mouth 3 (three) Medical times Branch daily. colchicine 2020-11 Yes [id number] .6mg Take 1 U nivers 0.6 mg 0-07 tablet by ity of tablet 00:00: mouth [place] 00 daily. Medical Branch gabapentin 2020-11 Yes [id number] 600mg Take 1 Univers 600 mg 0-07 tablet by ity of tablet 00:00: mouth 3 (three) Medical times Branch daily. colchicine 2020-11 Yes [id number] .6mg Take 1 U nivers 0.6 mg 0-07 tablet by ity of tablet 00:00: mouth [place] 00 daily. Medical Branch gabapentin 2020-11 Yes [id number] 600mg Take 1 Univers 600 mg 0-07 tablet by ity of tablet 00:00: mouth 3 (three) Medical times Branch daily. colchicine 2020-11 Yes [id number] .6mg Take 1 U nivers 0.6 mg 0-07 tablet by ity of tablet 00:00: mouth [place] 00 daily. Medical Branch gabapentin 2020-11 Yes [id number] 600mg Take 1 Univers 600 mg 0-07 tablet by ity of tablet 00:00: mouth 3 (three) Medical times Branch daily. TRUEPLUS Yes USE TWICE Univ ers INSULIN 1 9-14 DAILY ity of mL 30 gauge 00:00: x 5/16 Syrg 00 Medical Branch TRUEPLUS 0 Yes USE TWICE Univ ers INSULIN 1 9-14 DAILY ity of mL 30 gauge 00:00: [place] x 5/16 Syrg 00 Medical Branch TRUEPLUS 2020-0 Yes USE TWICE Univ ers INSULIN 1 9-14 DAILY ity of mL 30 gauge 00:00: [place] x 5/16 Syrg 00 Medical Branch TRUEPLUS 0 Yes USE TWICE Univ ers INSULIN 1 9-14 DAILY ity of mL 30 gauge 00:00: [place] x 5/16 Syrg Medical Branch TRUEPLUS Yes USE TWICE Univ ers INSULIN 1 9-14 DAILY ity of mL 30 gauge 00:00: [place] x 16 Syrg Medical Branch TRUEPLUS Yes USE TWICE [...] gauge 00:00: x 03/16 Syrg Medical Branch insulin NPH Yes [id number] ADMINISTER Univers and regular 8-25 70 UNITS ity of human 70-30 00:00: UNDER THE [place] (HUMULIN 00 SKIN EVERY Medic al 70/30 U-100 MORNING Branc h INSULIN) THEN 100 unit/mL ADMINISTER (70-30) 60 UNITS injection UNDER THE SKIN EVERY EVENING insulin NPH Yes [id number] ADMINISTER Univers and regular 8-25 70 UNITS ity of human 70-30 00:00: [place] THE [place] (HUMULIN 00 SKIN EVERY Medic al 70/30 U-100 MORNING Branc h INSULIN) THEN 100 unit/mL ADMINISTER (70-30) 60 UNITS injection UNDER THE SKIN EVERY EVENING insulin NPH Yes [id number] ADMINISTER Univers and regular 8-25 70 UNITS ity of human 70-30 00:00: UND[place] THE [place] (HUMULIN 00 SKIN EVERY Medic al 70/30 U-100 MORNING Branc h INSULIN) THEN 100 unit/mL ADMINISTER (70-30) 60 UNITS injection UNDER THE SKIN EVERY EVENING insulin NPH Yes [id number] ADMINISTER Univers and regular 8-25 70 UNITS ity of human 70-30 00:00: [place] THE [place] (HUMULIN 00 SKIN EVERY Medic al 70/30 U-100 MORNING Branc h INSULIN) THEN 100 unit/mL ADMINISTER (70-30) 60 UNITS injection UNDER THE SKIN EVERY EVENING insulin NPH Yes [id number] ADMINISTER Univers and regular 8-25 70 UNITS ity of human 70-30 00:00: UND[place] THE [place] (HUMULIN 00 SKIN EVERY Medic al 70/30 U-100 MORNING Branc h INSULIN) THEN 100 unit/mL ADMINISTER (70-30) 60 UNITS injection UNDER THE SKIN EVERY EVENING insulin NPH Yes [id number] ADMINISTER Univers and regular 8-25 70 UNITS ity of human 70-30 00:00: UND[place] THE [place] (HUMULIN 00 SKIN EVERY Medic al 70/30 U-100 MORNING Branc h INSULIN) THEN 100 unit/mL ADMINISTER (70-30) 60 UNITS injection UNDER THE SKIN EVERY EVENING insulin NPH Yes [id number] ADMINISTER Univers and regular 8-25 70 UNITS ity of human 70-30 00:00: UND[place] THE [place] (HUMULIN 00 SKIN EVERY Medic al 70/30 U-100 MORNING Branc h INSULIN) THEN 100 unit/mL ADMINISTER (70-30) 60 UNITS injection UNDER THE SKIN EVERY EVENING insulin NPH Yes [id number] ADMINISTER Univers and regular 8-25 70 UNITS ity of human 70-30 00:00: UND[place] THE [place] (HUMULIN 00 SKIN EVERY Medic al 70/30 U-100 MORNING Branc h INSULIN) THEN 100 unit/mL ADMINISTER (70-30) 60 UNITS injection UNDER THE SKIN EVERY EVENING insulin NPH Yes [id number] ADMINISTER Univers and regular 8-25 70 UNITS [...] Branch MINUTES NEEDED FOR CHEST PAIN. NITROGLYCER [address] 1 Uni vers IN 0.4 mg 06-09 TABLET ity of sublingual 00:00: [place]ER THE [place] tablet 00 TONGUE Medical EVERY 5 Branch MINUTES NEEDED FOR CHEST PAIN. NITROGLYCER 0 2020- No PLACE 1 Un ally IN 0.4 mg 06-09 TABLET ity of sublingual 00:00: 00:00 UNDER THE [place] tablet 00 :00 TONGUE Medical EVERY 5 Branch MINUTES NEEDED FOR CHEST PAIN. HYDROCHLORO 0 Yes [id number] 12.5mg TAKE 1 Univers THIAZIDE 7-20 CAPSULE BY ity o f 12.5 mg 00:00: MOUTH [place] capsule 00 DAILY Medical Branch HYDROCHLORO 2020-0 Yes [id number] 12.5mg TAKE 1 Univers THIAZIDE 7-20 CAPSULE BY ity o f 12.5 mg 00:00: MOUTH [place] capsule 00 DAILY Medical Branch HYDROCHLORO 2020-0 Yes [id number] 12.5mg TAKE 1 Univers THIAZIDE 7-20 CAPSULE BY ity o f 12.5 mg 00:00: MOUTH [place] capsule 00 DAILY Medical Branch HYDROCHLORO 2020-0 Yes [id number] 12.5mg TAKE 1 Univers THIAZIDE 7-20 CAPSULE BY ity o f 12.5 mg 00:00: MOUTH [place] capsule 00 DAILY Medical Branch HYDROCHLORO 2020-0 Yes [id number] 12.5mg TAKE 1 Univers THIAZIDE 7-20 CAPSULE BY ity o f 12.5 mg 00:00: MOUTH [place] capsule 00 DAILY Medical Branch HYDROCHLORO 2020-0 Yes [id number] 12.5mg TAKE 1 Univers THIAZIDE 7-20 CAPSULE BY ity o f 12.5 mg 00:00: MOUTH [place] capsule 00 DAILY Medical Branch HYDROCHLORO 2020-0 Yes [id number] 12.5mg TAKE 1 Univers THIAZIDE 7-20 CAPSULE BY ity o f 12.5 mg 00:00: MOUTH [place] capsule 00 DAILY Medical Branch HYDROCHLORO 1-0 2021- No [id number] 12.5mg TAKE 1 Univers THIAZIDE 7-20 01-19 CAPSULE BY ity of 12.5 mg 00:00: 00:00 MOUTH [place] capsule 00 :00 DAILY Medical Branch mirtazapine 2020-0 Yes 15mg Take 15 mg Univers 15 mg 7-14 by mouth ity of tablet 09:38: at [place] 49 bedtime. Medical Branch mesalamine 2020-0 Yes 1.5g Take 1.5 g U nivers 0.375 gram 7-14 by mouth ity o f 24 hr 09:38: daily. [place] capsule 49 Medical Branch mirtazapine 2020-0 Yes 15mg Take 15 mg Univers 15 mg 7-14 by mouth ity of tablet 09:38: at [place] [address] bedtime. Medical Branch mesalamine 2020-0 Yes 1.5g Take 1.5 g U nivers 0.375 gram 7-14 by mouth ity o f 24 hr 09:38: daily. [place] capsule 49 Medical Branch mirtazapine 2020-0 Yes 15mg Take 15 mg Univers 15 mg 7-14 by mouth ity of tablet 09:38: at [place] [address] bedtime. Medical Branch mesalamine 2020-0 Yes 1.5g Take 1.5 g U nivers 0.375 gram 7-14 by mouth ity o f 24 hr 09:38: daily. [facility] 49 Medical Branch mirtazapine 2020-0 Yes 15mg Take 15 mg Univers 15 mg 7-14 by mouth ity of tablet 09:38: at [place] [address] bedtime. Medical Branch mesalamine 2020-0 Yes 1.5g Take 1.5 g U nivers 0.375 gram 7-14 by mouth ity o f 24 hr 09:38: daily. [facility] 49 Medical Branch mirtazapine 2020-0 Yes 15mg Take 15 mg Univers 15 mg 7-14 by mouth ity of tablet 09:38: at [place] [address] bedtime. Medical Branch mesalamine 2020-0 Yes 1.5g Take 1.5 g U nivers 0.375 gram 7-14 by mouth ity o f 24 hr 09:38: daily. [facility] 49 Medical Branch mirtazapine 2020-0 Yes 15mg Take 15 mg Univers 15 mg 7-14 by mouth ity of tablet 09:38: at [place] [address] bedtime. Medical Branch mesalamine 2020-0 Yes 1.5g Take 1.5 g U nivers 0.375 gram 7-14 by mouth ity o f 24 hr 09:38: daily. [place] capsule 49 Medical Branch mirtazapine 2020-0 Yes 15mg Take 15 mg Univers 15 mg 7-14 by mouth ity of tablet 09:38: at [place] [address] bedtime. Medical Branch mesalamine 2021-0 Yes 1.5g Take 1.5 g U nivers 0.375 gram 7-14 by mouth ity o f 24 hr 09:38: daily. [place] capsule 49 [facility] mirtazapine 2020-0 Yes 15mg Take 15 mg Univers 15 mg 7-14 by mouth ity of tablet 09:38: at [place] [address] bedtime. [facility] mesalamine 2020-0 Yes 1.5g Take 1.5 g U nivers 0.375 gram 7-14 by mouth ity o f 24 hr 09:38: daily. [place] capsule 49 [facility] mirtazapine 2020-0 Yes 15mg Take 15 mg Univers 15 mg 7-14 by mouth ity of tablet 09:38: at [place] [address] bedtime. [facility] mesalamine 2020-0 Yes 1.5g Take 1.5 g U nivers 0.375 gram 7-14 by mouth ity o f 24 hr 09:38: daily. [address] predniSONE 1-0 Yes 10mg Take 10 mg U nivers 10 mg 6-22 by mouth ity of tablet 00:00: daily. [address] predniSONE 2021-0 Yes 10mg Take 10 mg U nivers 10 mg 6-22 by mouth ity of tablet 00:00: daily. [address] predniSONE 2021-0 Yes 10mg Take 10 mg U nivers 10 mg 6-22 by mouth ity of tablet 00:00: daily. [address] predniSONE 2021-0 Yes 10mg Take 10 mg U nivers 10 mg 6-22 by mouth ity of tablet 00:00: daily. [address] predniSONE 2021-0 Yes 10mg Take 10 mg U nivers 10 mg 6-22 by mouth ity of tablet 00:00: daily. [address] predniSONE 2021-0 Yes 10mg Take 10 mg U nivers 10 mg 6-22 by mouth ity of tablet 00:00: daily. [address] predniSONE 2021-0 Yes 10mg Take 10 mg U nivers 10 mg 6-22 by mouth ity of tablet 00:00: daily. [address] predniSONE 2021-0 Yes 10mg Take 10 mg U nivers 10 mg 6-22 by mouth ity of tablet 00:00: daily. [address] predniSONE 2021-0 Yes 10mg Take 10 mg U nivers 10 mg 6-22 by mouth ity of tablet 00:00: daily. [facility] spironolact 2020-0 Yes 25mg Take 25 mg Univers one 25 mg 6-08 by mouth ity of tablet 00:00: daily. [facility] spironolact 2020-0 Yes 25mg Take 25 mg Univers one 25 mg 6-08 by mouth ity of tablet 00:00: daily. [facility] spironolact 2020-0 Yes 25mg Take 25 mg Univers one 25 mg 6-08 by mouth ity of tablet 00:00: daily. [place] [facility] spironolact 2020-0 Yes 25mg Take 25 mg Univers one 25 mg 6-08 by mouth ity of tablet 00:00: daily. [place] [facility] spironolact 2020-0 Yes 25mg Take 25 mg Univers one 25 mg 6-08 by mouth ity of tablet 00:00: daily. [place] [facility] spironolact 2020-0 Yes 25mg Take 25 mg Univers one 25 mg 6-08 by mouth ity of tablet 00:00: daily. [place] [facility] spironolact 2020-0 Yes 25mg Take 25 mg [facility] one 25 mg 6-08 by mouth ity of tablet 00:00: daily. [place] [facility] spironolact 2020-0 Yes 25mg Take 25 mg [facility] one 25 mg 6-08 by mouth ity of tablet 00:00: daily. [place] [facility] spironolact 2020-0 Yes 25mg Take 25 mg [facility] one 25 mg 6-08 by mouth ity of tablet 00:00: daily. [place] [facility] Branch neomycin-po 2020-0 Yes [id number] 3[drp] Place 3 [facility] lymyxin-hyd 4-14 Drops in ity of rocortisone 00:00: left ear 4 [place] 3.5-,000- 00 (four) Medica l 1 times Branch mg/mL-unit/ daily. mL-% otic susp neomycin-po 2020-0 Yes [id number] 3[drp] Place 3 [facility] lymyxin-hyd 4-14 Drops in ity of rocortisone 00:00: left ear 4 [place] 3.5-,000- (four) Medica l 1 times Branch mg/mL-unit/ daily. mL-% otic susp neomycin-po 2021-0 Yes [id number] 3[drp] Place 3 [facility] lymyxin-hyd 4-14 Drops in ity of rocortisone 00:00: left ear 4 [place] 3.5-10,000- 00 (four) Medica l 1 times Branch mg/mL-unit/ daily. mL-% otic susp neomycin-po 2021-0 Yes [id number] 3[drp] Place 3 [facility] lymyxin-hyd 4-14 Drops in ity of rocortisone 00:00: left ear 4 [place] 3.5-10,000- 00 (four) Medica l 1 times Branch mg/mL-unit/ daily. mL-% otic susp neomycin-po 2021-0 Yes [id number] 3[drp] Place 3 [facility] lymyxin-hyd 4-14 Drops in ity of rocortisone 00:00: left ear 4 [place] 3.5-000- (four) Medica l 1 times Branch mg/mL-unit/ daily. mL-% otic susp neomycin-po 2021-0 Yes [id number] 3[drp] Place 3 [facility] lymyxin-hyd 4-14 Drops in ity of rocortisone 00:00: left ear 4 [place] 3.5-000 (four) Medica l 1 times Branch mg/mL-unit/ daily. mL-% otic susp neomycin-po 2021-0 Yes [id number] 3[drp] Place 3 [facility] lymyxin-hyd 4-14 Drops in ity of rocortisone 00:00: left ear 4 [place] 3.5-000 (four) Medica l 1 times Branch mg/mL-unit/ daily. mL-% otic susp neomycin-po 2021-0 Yes [id number] 3[drp] Place 3 [facility] lymyxin-hyd 4-14 Drops in ity of rocortisone 00:00: left ear 4 [place] 3.5-10,000 (four) Medica l 1 times Branch mg/mL-unit/ daily. mL-% otic susp neomycin-po 2021-0 Yes [id number] 3[drp] Place 3 [facility] lymyxin-hyd 4-14 Drops in ity of rocortisone 00:00: left ear 4 [place] 3.5-10,000- 00 (four) Medica l 1 times Branch mg/mL-unit/ daily. mL-% otic susp HYDROcodone Yes chronic 1{tbl} Take 1 Univers [...] rocortisone 00:00: acute left ear 4 [place] 3.5-000- 00 otitis (four) Medi mari 1 externa [...] " Syrg hyperglycem E11.65 ia insulin Yes [id number] 1{each} 1 Each 2 Univers U-500 3-08 (two) ity of syringe-nee 00:00: times [place] dle 1/2 mL 00 daily with Med ical 31 gauge x meals. Branch " Syrg E11.65 insulin Yes [id number] 1{each} 1 Each 2 [facility] U-500 3-08 (two) ity of syringe-nee 00:00: times [place] dle 1/2 mL 00 daily with Med ical 31 gauge x meals. Branch " Syrg E11.65 insulin 202-0 Yes [id number] 1{each} 1 Each 2 [facility] U-500 3-08 (two) ity of syringe-nee 00:00: times [place] dle 1/2 mL 00 daily with Med ical 31 gauge x meals. Branch 1564" Syrg E11.65 insulin 202-0 Yes [id number] 1{each} 1 Each 2 [facility] U-500 3-08 (two) ity of syringe-nee 00:00: times [place] dle 1/2 mL 00 daily with Med ical 31 gauge x meals. Branch 15" Syrg E11.65 insulin 202-0 Yes [id number] 1{each} 1 Each 2 [facility] U-500 3-08 (two) ity of syringe-nee 00:00: times [place] dle 1/2 mL 00 daily with Med ical 31 gauge x meals. Branch " Syrg E11.65 insulin 2020-0 Yes [id number] 1{each} 1 Each 2 [facility] U-500 3-08 (two) ity of syringe-nee 00:00: times [place] dle 1/2 mL 00 daily with Med ical 31 gauge x meals. Branch 15" Syrg E11.65 insulin 2020-0 Yes [id number] 1{each} 1 Each 2 [facility] U-500 3-08 (two) ity of syringe-nee 00:00: times [place] dle 1/2 mL 00 daily with Med ical 31 gauge x meals. Branch 15" Syrg E11.65 insulin 2020-0 Yes [id number] 1{each} 1 Each 2 [facility] U-500 3-08 (two) ity of syringe-nee 00:00: times [place] dle 1/2 mL 00 daily with Med ical 31 gauge x meals. Branch 15" Syrg E11.65 insulin 202-0 Yes [id number] 1{each} 1 Each 2 [facility] U-500 3-08 (two) ity of syringe-nee 00:00: times [place] dle 1/2 mL 00 daily with Med ical 31 gauge x meals. Branch 1564" Syrg E11.65 metoprolol 2020-0 Yes 100mg Take [...] long-term meals. current use of insulin metFORMIN 2020- No [id number] 1000mg Take 1 Univers 1,000 mg 1-13 11-18 tablet by ity o f tablet 00:00: [...] 00 EVERY DAY Medica l Branch TRELEGY 2020-1 Yes INHALE 1 Univer s ELLIPTA 2-24 PUFF BY ity of 100-62.5-25 00:00: MOUTH [place] mcg DsDv 00 EVERY DAY Medica l Branch TRELEGY 2019-1 Yes INHALE 1 Univer s ELLIPTA 2-24 PUFF BY ity of 100-62.5-25 00:00: MOUTH [place] mcg DsDv 00 EVERY DAY Medica l Branch ipratropium 2019- Yes Univer s 0.02 % 2-23 ity of nebulizer 00:00: [place] solution 00 Medical Branch ipratropium 2020- Yes Univer s 0.02 % 2-23 ity of nebulizer 00:00: [place] solution 00 Medical Branch ipratropium 2020-1 Yes Univer s 0.02 % 2-23 ity of nebulizer 00:00: [place] solution Medical Branch ipratropium 2020- Yes Univer s 0.02 % 2-23 ity of nebulizer 00:00: [place] solution Medical Branch ipratropium 2020-1 Yes Univer s 0.02 % 2-23 ity of nebulizer 00:00: [place] solution 00 Medical Branch ipratropium 2020- Yes Univer s 0.02 % 2-23 ity of nebulizer 00:00: [place] solution 00 Medical Branch ipratropium 2020-1 Yes Univer s 0.02 % 2-23 ity of nebulizer 00:00: [place] solution 00 Medical Branch ipratropium 2020- Yes Univer s 0.02 % 2-23 ity of nebulizer 00:00: [place] solution 00 Medical Branch ipratropium 2020-1 Yes Univer s 0.02 % 2-23 ity of nebulizer 00:00: [place] solution 00 Medical Branch ipratropium 2020- Yes Univer s 0.02 % 2-23 ity of nebulizer 00:00: [place] solution 00 Medical Branch zolpidem 10 2019- Yes 10mg Take 10 mg Univers mg [...] bedtime [place] 00 as needed. Medical Branch zolpidem 10 2019-11 Yes 10mg Take 10 mg [facility] mg tablet 2-14 by mouth ity of 00:00: at bedtime [place] 00 as needed. Medical Branch zolpidem 10 2019-11 Yes 10mg Take 10 mg [facility] mg tablet 2-14 by mouth ity of 00:00: at bedtime [place] 00 as needed. Medical Branch zolpidem 10 2019-11 Yes 10mg Take 10 mg [facility] mg tablet 2-14 by mouth ity of 00:00: at bedtime [place] 00 as needed. [facility] Branch zolpidem 10 2019-11 Yes 10mg Take 10 mg [facility] mg tablet 2-14 by mouth ity of 00:00: at bedtime [place] 00 as needed. [facility] Branch zolpidem 10 2019-11 Yes 10mg Take 10 mg [facility] mg tablet 2-14 by mouth ity of 00:00: at bedtime [place] 00 as needed. Medical Branch zolpidem 10 2019-11 Yes 10mg Take 10 mg [facility] mg tablet 2-14 by mouth ity of 00:00: at bedtime [place] 00 as needed. [facility] Branch zolpidem 10 2019-11 Yes 10mg Take [...] or daily. Branch higher Diclofenac 2019-11 Yes [id number] Apply to Univers Sodium 2-04 area(s) 4 ity of (VOLTAREN) 00:00: (four) [place] 1 % gel 00 times Medical daily. Branch Diclofenac 2019-11- No [id number] Apply to Univers Sodium 2-04 12-02 area(s) 4 ity of (VOLTAREN) 00:00: 00:00 (four) [place] 1 % gel 00 :00 times Medical daily. Branch dicyclomine 2020- Yes TK 1 C PO U nivers [...] 8 H PRF Branch ABDOMINAL PAIN. MOTEGRITY 2019- Yes TK 1 T PO [...] D ity of 00:00: Medical Branch MOTEGRITY 2019-11 Yes TK 1 T PO Uni vers tablet 1-12 D ity of 00:00: Medical Branch MOTEGRITY 2019-11 Yes TK 1 T PO Uni vers tablet 1-12 D ity of 00:00: Medical Branch MOTEGRITY 2019-11 Yes TK 1 T PO Uni vers tablet 1-12 D ity of 00:00: Medical Branch MOTEGRITY 2019-11 Yes TK 1 T PO Uni vers tablet 1-12 D ity of 00:00: Medical Branch gabapentin 2019-11 Yes Chronic 600mg Take 1 U nivers 600 mg 1-11 bilateral tablet by ity of tablet 00:00: [place] back mouth 3 [place] 00 pain with (three) Medical bilateral times Branch sciatica daily. ondansetron 2019-11 Yes TK 2 TS PO Univers 4 mg tablet 1-04 Q 12 H ity of 00:00: [facility] Branch ondansetron 2020- Yes as needed. [facility] 4 mg tablet 1-04 ity of 00:00: [facility] Branch ondansetron 2020- Yes as needed. [facility] 4 mg tablet 1-04 ity of 00:00: [facility] Branch ondansetron 2020- Yes as needed. [facility] 4 mg tablet 1-04 ity of 00:00: [facility] ondansetron 2020- Yes as needed. [facility] 4 mg tablet 1-04 ity of 00:00: [facility] Branch ondansetron 2020- Yes as needed. [facility] 4 mg tablet 1-04 ity of 00:00: Medical Branch ondansetron 2020- Yes as needed. [facility] 4 mg tablet 1-04 ity of 00:00: Medical Branch ondansetron 2020- Yes as needed. [facility] 4 mg tablet 1-04 ity of 00:00: Medical Branch ondansetron 2020- Yes as needed. [facility] 4 mg tablet 1-04 ity of 00:00: Medical Branch ondansetron 2020- Yes as needed. [facility] 4 mg tablet 1-04 ity of 00:00: Medical Branch diclofenac 2019- Yes Morbid 75mg Take 1 Uni vers 75 mg EC 0-08 obesity tablet by ity of tablet 00:00: with body mouth 2 [place] as 00 mass index (two) Medical of 50 or times Branch higher daily with meals. diclofenac 2019-11 Yes [id number] 75mg Take 1 [facility] 75 mg EC 0-08 tablet by ity of tablet 00:00: mouth 2 (two) Medical times Branch daily with meals. diclofenac 2019-11 Yes [id number] 75mg Take 1 [facility] 75 mg EC 0-08 tablet by ity of tablet 00:00: mouth [place] (two) Medical times Branch daily with meals. diclofenac 2019-11 Yes [id number] 75mg Take 1 [facility] 75 mg EC 0-08 tablet by ity of tablet 00:00: mouth [place] (two) Medical times Branch daily with meals. diclofenac 2019-11 Yes [id number] 75mg Take 1 [facility] 75 mg EC 0-08 tablet by ity of tablet 00:00: mouth 2 [place] (two) Medical times Branch daily with meals. diclofenac 2019-11 Yes [id number] 75mg Take 1 [facility] 75 mg EC 0-08 tablet by ity of tablet 00:00: mouth 2 [place] (two) Medical times Branch daily with meals. diclofenac 2019-11 Yes [id number] 75mg Take 1 [facility] 75 mg EC 0-08 tablet by ity of tablet 00:00: mouth 2 [place] (two) Medical times Branch daily with meals. diclofenac 2019- Yes [id number] 75mg Take 1 [facility] 75 mg EC 0-08 tablet by ity of tablet 00:00: mouth 2 [place] (two) Medical times Branch daily with meals. diclofenac 2019-11 Yes [id number] 75mg Take 1 [facility] 75 mg EC 0-08 tablet by ity of tablet 00:00: mouth 2 (two) Medical times Branch daily with meals. diclofenac 2020-1 Yes [id number] 75mg Take 1 [facility] 75 mg EC 0-08 tablet by ity of tablet 00:00: mouth 2 (two) Medical times Branch daily with meals. COLCHICINE 2020-0 Yes Gout, .6mg TAKE 1 Univ ers 0.6 mg 8-28 unspecified TABLET BY i ty of tablet 00:00: cause, MOUTH 00 unspecified DAILY Medical chronicity, Branch unspecified site hydrALAZINE 2020-0 Yes Essential TAKE 1 Univers 100 mg 8-12 hypertensio TABLET BY i ty of tablet 00:00: n MOUTH THREE Medical TIMES Branch DAILY CLONIDINE 2020-0 Yes Essential TAKE 1 U nivers 0.2 mg 8-06 hypertensio TABLET BY i ty of tablet 00:00: n MOUTH THREE Medical TIMES Branch DAILY CLONIDINE 2020-0 Yes [id number] TAKE 1 Un ally 0.2 mg 8-06 TABLET BY ity of tablet 00:00: THREE Medical TIMES Branch DAILY CLONIDINE 2020-0 Yes [id number] TAKE 1 Un ally 0.2 mg 8-06 TABLET BY ity of tablet 00:00: MOUTH THREE Medical TIMES Branch DAILY CLONIDINE 2020-0 Yes [id number] TAKE 1 Un ally 0.2 mg 8-06 TABLET BY ity of tablet 00:00: MOUTH THREE Medical TIMES Branch DAILY CLONIDINE 2020-0 Yes [id number] TAKE 1 Un ally 0.2 mg 8-06 TABLET BY ity of tablet 00:00: MOUTH THREE Medical TIMES Branch DAILY CLONIDINE 2020-0 Yes [id number] TAKE 1 Un ally 0.2 mg 8-06 TABLET BY ity of tablet 00:00: MOUTH THREE Medical TIMES Branch DAILY CLONIDINE 2020-0 Yes [id number] TAKE 1 Un ally 0.2 mg 8-06 TABLET BY ity of tablet 00:00: MOUTH THREE Medical TIMES Branch DAILY CLONIDINE 2020-0 Yes [id number] TAKE 1 Un ally 0.2 mg 8-06 TABLET BY ity of tablet 00:00: MOUTH THREE Medical TIMES Branch DAILY CLONIDINE 2020-0 Yes [id number] TAKE 1 Un ally 0.2 mg 8-06 TABLET BY ity of tablet 00:00: [facility] THREE Medical TIMES Branch DAILY CLONIDINE 2020-0 Yes [id number] TAKE 1 Un ally 0.2 mg 8-06 [...] mcg capsule 7-06 BID ity of 00:00: [place] [facility] AMITIZA 24 2020-0 Yes TK [...] mg tablet 5-14 ity of 00:00: [place] 00 Medical Branch XIFAXAN 550 2020-0 Yes as needed. Univers mg tablet 5-14 ity of 00:00: [place] 00 Medical Branch XIFAXAN 550 2020-0 Yes as needed. [facility] mg tablet 5-14 ity of 00:00: [place] 00 Medical Branch XIFAXAN 550 2020-0 Yes as needed. [facility] mg tablet 5-14 ity of 00:00: [place] 00 Medical Branch XIFAXAN 550 2020-0 Yes as needed. [facility] mg tablet 5-14 ity of 00:00: [place] 00 Medical Branch XIFAXAN 550 2020-0 Yes as needed. [facility] mg tablet 5-14 ity of 00:00: [place] 00 Medical Branch XIFAXAN 550 2020-0 Yes as needed. [facility] mg tablet 5-14 ity of 00:00: [place] [facility] XIFAXAN 550 2020-0 Yes as needed. [facility] mg tablet 5-14 ity of 00:00: [place] [facility] XIFAXAN 550 2020-0 Yes as needed. [facility] mg tablet 5-14 ity of 00:00: [place] [facility] XIFAXAN 550 2020-0 Yes as needed. [facility] mg tablet 5-14 ity of 00:00: [place] [id number] Medical Branch insulin 2019-0 Yes Uncontrolle Take [...] by ity of tablet 00:00: mouth 2 [place] 00 (two) Medical times Branch daily. KCL Yes 20meq Take 20 Univers (KLOR-CON [...] 14 Medical 200-25 Branch mcg/dose DsDv cholestyram 2019-0 Yes 4g Take 4 g Un ally ine light 8-28 by mouth ity of (CHOLESTYRA 14:53: [place]. [place] MINE LIGHT) 14 Medical 4 gram Branch packet allopurinol 2019-0 Yes 100mg Take 100 U nivers (ZYLOPRIM) 8-28 mg by ity of 100 mg 09:53: mouth [place] tablet 14 daily. [facility] Branch ALPRAZolam 2019-0 Yes 2mg Take 2 mg Un ally (XANAX) 8-28 by mouth ity of 0.25 mg 09:53: every 6 [place] tablet 14 (six) Medical hours as Branch needed. allopurinol 2019-0 Yes 100mg Take 100 U nivers (ZYLOPRIM) 8-28 mg by ity of 100 mg 09:53: mouth [place] tablet 14 daily. [facility] Branch ALPRAZolam 2019-0 Yes 2mg Take 2 mg Un ally (XANAX) 8-28 by mouth ity of 0.25 mg 09:53: every 6 [place] tablet 14 (six) Medical hours as Branch needed. allopurinol 2019-0 Yes 100mg Take 100 U nivers (ZYLOPRIM) 8-28 mg by ity of 100 mg 09:53: mouth [place] tablet 14 daily. [facility] Branch ALPRAZolam 2019-0 Yes 2mg Take 2 mg Un ally (XANAX) 8-28 by mouth ity of 0.25 mg 09:53: every 6 [place] tablet 14 (six) Medical hours as Branch needed. allopurinol 2019-0 Yes 100mg Take 100 U nivers (ZYLOPRIM) 8-28 mg by ity of 100 mg 09:53: mouth [place] tablet 14 daily. [facility] Branch ALPRAZolam 2019-0 Yes 2mg Take 2 mg Un ally (XANAX) 8-28 by mouth ity of 0.25 mg 09:53: every 6 [place] tablet 14 (six) Medical hours as Branch needed. allopurinol 2019-0 Yes 100mg Take 100 U nivers (ZYLOPRIM) 8-28 mg by ity of 100 mg 09:53: mouth [place] tablet 14 daily. [facility] Branch ALPRAZolam 2019-0 Yes 2mg Take 2 mg Un ally (XANAX) 8-28 by mouth ity of 0.25 mg 09:53: every 6 [place] tablet 14 (six) Medical hours as Branch needed. allopurinol Yes 100mg Take 100 U nivers (ZYLOPRIM) 8-28 mg by ity of 100 mg 09:53: mouth [place] tablet 14 daily. Medical Branch ALPRAZolam Yes 2mg Take 2 mg Un ally (XANAX) 8-28 by mouth ity of 0.25 mg 09:53: every 6 [place] tablet 14 (six) Medical hours as Branch needed. allopurinol Yes 100mg Take 100 U nivers (ZYLOPRIM) 8-28 mg by ity of 100 mg 09:53: mouth [place] tablet 14 daily. Medical Branch ALPRAZolam Yes 2mg Take 2 mg Un ally (XANAX) 8-28 by mouth ity of 0.25 mg 09:53: every 6 [place] tablet 14 (six) Medical hours as Branch needed. allopurinol Yes 100mg Take 100 U nivers (ZYLOPRIM) 8-28 mg by ity of 100 mg 09:53: mouth [place] tablet 14 daily. Medical Branch ALPRAZolam Yes 2mg Take 2 mg Un ally (XANAX) 8-28 by mouth ity of 0.25 mg 09:53: every 6 [place] tablet 14 (six) Medical hours as Branch needed. allopurinol Yes 100mg Take 100 U nivers (ZYLOPRIM) 8-28 mg by ity of 100 mg 09:53: mouth [place] tablet 14 daily. Medical Branch ALPRAZolam Yes 2mg Take 2 [...] Medical moncho type evening. Branch atorvastati Yes [id number] 40mg Take 1 Univers n 40 mg 5-28 tablet by ity of tablet 00:00: mouth [place] 00 every Medical evening. Branch atorvastati Yes [id number] 40mg Take 1 Univers n 40 mg 5-28 tablet by ity of tablet 00:00: mouth [place] 00 every Medical evening. Branch atorvastati Yes [id number] 40mg Take 1 Univers n 40 mg 5-28 tablet by ity of tablet 00:00: mouth [place] 00 every Medical evening. Branch atorvastati Yes [id number] 40mg Take 1 Univers n 40 mg 5-28 tablet by ity of tablet 00:00: mouth [place] 00 every Medical evening. Branch atorvastati Yes [id number] 40mg Take 1 Univers n 40 mg 5-28 tablet by ity of tablet 00:00: mouth [place] 00 every Medical evening. Branch atorvastati Yes [id number] 40mg Take 1 Univers n 40 mg 5-28 tablet by ity of tablet 00:00: mouth [place] 00 every Medical evening. Branch atorvastati Yes [id number] 40mg Take 1 Univers n 40 mg 5-28 tablet by ity of tablet 00:00: mouth [place] 00 every Medical evening. Branch atorvastati Yes [id number] 40mg Take 1 Univers n 40 mg 5-28 tablet by ity of tablet 00:00: mouth [place] 00 every Medical evening. Branch atorvastati Yes [id number] 40mg Take 1 Univers n 40 mg [...] 00 daily. Medical Branch Cholecalcif 2017-11 Yes [id number] Take 1 Un ally alayna, 0-01 capsule by ity of Vitamin D3, 00:00: mouth [place] 50,000 unit 00 weekly. Medic al capsule Branch Cholecalcif 2017-11 Yes [id number] Take 1 Un ally alayna, 0-01 capsule by ity of Vitamin D3, 00:00: mouth [place] 50,000 unit 00 weekly. Medic al capsule Branch Cholecalcif 2017-11 Yes [id number] Take 1 Un ally alayna, 0-01 capsule by ity of Vitamin D3, 00:00: mouth [place] 50,000 unit 00 weekly. Medic al capsule Branch Cholecalcif 2017-11 Yes [id number] Take 1 Un ally alayna, 0-01 capsule by ity of Vitamin D3, 00:00: mouth [place] 50,000 unit 00 weekly. Medic al capsule Branch Cholecalcif 2017-11 Yes [id number] Take 1 Un ally alayna, 0-01 capsule by ity of Vitamin D3, 00:00: mouth [place] 50,000 unit 00 weekly. Medic al capsule Branch Cholecalcif 2017-11 Yes [id number] Take 1 Un ally alayna, 0-01 capsule by ity of Vitamin D3, 00:00: mouth [place] 50,000 unit 00 weekly. Medic al capsule Branch Cholecalcif 2017-11 Yes [id number] Take 1 Un ally alayna, 0-01 capsule by ity of Vitamin D3, 00:00: mouth [place] 50,000 unit 00 weekly. Medic al capsule Branch Cholecalcif 2017-11 Yes [id number] Take 1 Un ally alayna, 0-01 capsule by ity of Vitamin D3, 00:00: mouth [place] 50,000 unit 00 weekly. Medic al capsule Branch Cholecalcif 2017-11 Yes [id number] Take 1 Un ally alayna, 0-01 capsule by ity of Vitamin D3, 00:00: mouth [place] 50,000 unit 00 weekly. Medic al capsule Branch Cholecalcif 2017-11 Yes [id number] Take 1 Un ally alayna, 0-01 capsule [...] needed for Wheezing or Shortness of Breath. Humulin Humulin No Humulin [place] 70/30 [...] SKIN EVERY EVENING hydralazine hydralazine No hydralazin [place] 100 mg 100 mg e 100 mg Family tablet TAKE tablet TAKE tablet Practic 1 TABLET BY 1 TABLET BY TAKE 1 e MOUTH THREE MOUTH THREE TABLET BY TIMES DAILY TIMES DAILY MOUTH THREE TIMES DAILY hydrochloro hydrochloro No hydrochlor [facility] thiazide thiazide othiazide Fa davida 12.5 mg 12.5 mg 12.5 mg Practi c capsule capsule capsule e TAKE 1 TAKE 1 TAKE 1 CAPSULE BY CAPSULE BY CAPSULE BY MOUTH DAILY MOUTH DAILY MOUTH DAILY hydrocodone hydrocodone No hydrocodon [facility] 7.5 7.5 e 7.5 Family mg-acetamin [...] gauge x 31 gauge x mL 31 03/16" USE 03/16" USE gauge x TWICE DAILY TWICE DAILY 03/16" USE WITH MEALS WITH MEALS TWICE DAILY WITH MEALS [facility] m bromide Fami ly 0.02 % 0.02 % 0.02 % Practic solution solution solution e for for for inhalation inhalation inhalation lisinopril lisinopril No lisinopril [facility] 40 mg 40 mg 40 mg Family tablet TAKE tablet TAKE tablet Practic 1/2 TABLET 1/2 TABLET TAKE 1/2 e BY MOUTH BY MOUTH TABLET BY TWICE DAILY TWICE DAILY MOUTH TWICE DAILY mesalamine mesalamine No mesalamine [facility] ER 0.375 ER 0.375 ER 0.375 Fam ramses gram gram gram Practic capsule,ext capsule,ext capsule,ex e ended ended tended release 24 release 24 release 24 hr TAKE 4 hr TAKE 4 hr TAKE 4 CAPSULES BY CAPSULES BY CAPSULES MOUTH DAILY MOUTH DAILY BY MOUTH DAILY metformin metformin No metformin [facility] 1,000 mg 1,000 mg 1,000 mg Fam ramses tablet TAKE tablet TAKE tablet Practic 1 TABLET BY 1 TABLET BY TAKE 1 e MOUTH TWICE MOUTH TWICE TABLET BY DAILY WITH DAILY WITH MOUTH MEALS MEALS TWICE DAILY WITH MEALS metoprolol metoprolol No metoprolol [facility] tartrate tartrate tartrate Fam ramses 100 [...] BY MOUTH DAILY nitroglycer nitroglycer No nitroglyce [place] in 0.4 mg in 0.4 mg rin 0.4 mg Family sublingual sublingual sublingual [facility] tablet tablet tablet e PLACE [address] 1 TABLET TABLET TABLET UNDER THE UNDER THE UNDER THE TONGUE TONGUE TONGUE EVERY 5 EVERY 5 EVERY 5 MINUTES MINUTES MINUTES NEEDED FOR NEEDED FOR NEEDED FOR CHEST PAIN. CHEST PAIN. CHEST PAIN. ondansetron ondansetron No ondansetro [place] HCl 4 mg HCl 4 mg n [...] BY MOUTH DAILY prednisone prednisone No prednisone [place] 10 mg 10 mg 10 mg Family tablet TAKE tablet TAKE tablet Practic 1 TABLET BY 1 TABLET BY TAKE 1 e MOUTH EVERY MOUTH EVERY TABLET BY DAY DAY MOUTH EVERY DAY spironolact spironolact No spironolac [place] one 25 mg one 25 mg tone 25 mg Family tablet TAKE tablet TAKE tablet Practic 1 TABLET BY 1 TABLET BY TAKE 1 e MOUTH EVERY MOUTH EVERY TABLET BY DAY DAY MOUTH EVERY DAY sucralfate sucralfate No sucralfate [place] 1 gram 1 gram 1 gram Family [...] mL 30 gauge mL 30 Practic x /16" x 5/16" gauge x e syringe USE syringe USE 516" TWICE DAILY TWICE DAILY syringe USE TWICE [...] SKIN UNDER THE DAILY DAILY SKIN DAILY zolpidem 10 zolpidem 10 No zolpidem [place] mg tablet mg tablet 10 mg Fami ly TAKE 1 TAKE 1 tablet Practic TABLET BY TABLET BY TAKE 1 e MOUTH AT MOUTH AT TABLET BY BEDTIME BEDTIME MOUTH AT NEEDED FOR NEEDED FOR BEDTIME INSOMNIA INSOMNIA NEEDED FOR INSOMNIA albuterol albuterol No albuterol [facility] sulfate 2.5 sulfate 2.5 sulfate Family mg/3 mL mg/3 mL 2.5 mg/3 Pract ic (0.083 %) (0.083 %) mL (0.083 e solution solution %) for for solution nebulizatio nebulizatio for n n nebulizati on albuterol albuterol No albuterol [place] sulfate HFA sulfate HFA sulfate Family 90 [...] SHORTNESS OF BREATH allopurinol allopurinol No allopurino [place] 300 mg 300 mg l 300 mg Family tablet TAKE tablet TAKE tablet Practic 1 TABLET BY 1 TABLET BY TAKE 1 e MOUTH TWICE MOUTH TWICE TABLET BY DAILY. DAILY. MOUTH TWICE DAILY. alprazolam alprazolam No alprazolam [place] 2 mg tablet 2 mg tablet 2 mg F amily TAKE 1 TAKE 1 tablet Practic TABLET BY TABLET BY TAKE 1 e MOUTH THREE MOUTH THREE TABLET BY TIMES DAILY TIMES DAILY MOUTH NEEDED NEEDED THREE FOR ANXIETY FOR ANXIETY TIMES DAILY NEEDED FOR ANXIETY amlodipine amlodipine No amlodipine [place] 5 mg tablet 5 mg tablet 5 mg F amily TAKE 1 TAKE 1 tablet Practic TABLET BY TABLET BY TAKE 1 e MOUTH EVERY MOUTH EVERY TABLET BY DAY DAY MOUTH EVERY DAY atorvastati atorvastati No atorvastat [facility] n 20 mg n 20 mg in 20 mg Famil y tablet TAKE tablet TAKE tablet Practic 1 TABLET BY 1 TABLET BY TAKE 1 e MOUTH EVERY MOUTH EVERY TABLET BY DAY DAY MOUTH EVERY DAY BD Insulin BD Insulin No BD Insulin [place] Syringe Syringe Syringe Family U-500 1/2 U-500 1/2 U-500 1/2 Practic mL 31 gauge mL 31 gauge mL 31 e x " x 15" gauge x USE 1 USE 1 " USE SYRINGE SYRINGE 1 SYRINGE TWICE DAILY TWICE DAILY TWICE WITH MEALS. WITH MEALS. DAILY WITH MEALS. BD [place] 2nd BD [place] 2nd No BD [place] Gen Pen Gen Pen 2nd Gen Family Needle 32 Needle 32 Pen Needle Pract[facility] gauge x gauge x 32 gauge x e " USE " USE 5" USE TWICE DAILY TWICE DAILY TWICE DAILY [...] FOUR TIMES DAILY diclofenac diclofenac No diclofenac [place] sodium 75 sodium 75 sodium 75 Family mg mg mg Practic tablet,artem tablet,artem tablet,del e yed release yed release ayed TAKE 1 TAKE 1 release TABLET BY TABLET BY TAKE 1 MOUTH TWICE MOUTH TWICE TABLET BY DAILY WITH DAILY WITH MOUTH MEALS MEALS TWICE DAILY WITH MEALS dicyclomine dicyclomine No dicyclomin [place] 10 mg 10 mg e 10 mg Family capsule capsule capsule Practi c TAKE 1 TAKE 1 TAKE 1 e CAPSULE BY CAPSULE BY CAPSULE BY MOUTH EVERY MOUTH EVERY MOUTH 8 HOURS 8 HOURS EVERY 8 HOURS gabapentin gabapentin No gabapentin [facility] 600 mg 600 mg 600 mg Family tablet TAKE tablet TAKE tablet Pract[facility] 1 TABLET BY 1 TABLET BY TAKE 1 e MOUTH THREE MOUTH THREE TABLET BY TIMES DAILY TIMES DAILY MOUTH THREE TIMES DAILY Immunizations Ordered Filled Immunization Date Status Comments Sour e Immunization Name Name SARS-COV-2 COVID-19 2021-07-11 Completed Unive rsity of MODERNA VACCINE 00:00:00 [facility] SARS-COV-2 COVID-19 2021-07-11 Completed Unive rsity of MODERNA VACCINE 00:00:00 [facility] SARS-COV-2 COVID-19 2021-07-11 Completed Unive rsity of MODERNA VACCINE 00:00:00 [facility] SARS-COV-2 COVID-19 2021-07-11 Completed Unive rsity of MODERNA VACCINE 00:00:00 [facility] SARS-COV-2 COVID-19 2021-07-11 Completed Unive rsity of MODERNA VACCINE 00:00:00 [facility] SARS-COV-2 COVID-19 2021-07-11 Completed Unive rsity of MODERNA VACCINE 00:00:00 [facility] SARS-COV-2 COVID-19 2021-07-11 Completed Unive rsity of MODERNA VACCINE 00:00:00 [facility] SARS-COV-2 COVID-19 2021-07-11 Completed Unive rsity of MODERNA VACCINE 00:00:00 [facility] SARS-COV-2 COVID-19 2021-07-11 Completed Unive rsity of MODERNA VACCINE 00:00:00 [place] [facility] SARS-COV-2 COVID-19 2021-01-01 Completed Unive rsity of MODERNA VACCINE 00:00:00 [place] [facility] SARS-COV-2 COVID-19 2021-01-01 Completed Unive rsity of MODERNA VACCINE 00:00:00 [place] [facility] SARS-COV-2 COVID-19 2021-01-01 Completed Unive rsity of MODERNA VACCINE 00:00:00 [place] [facility] SARS-COV-2 COVID-19 2021-01-01 Completed Unive rsity of MODERNA VACCINE 00:00:00 [place] [facility] SARS-COV-2 COVID-19 2021-01-01 Completed Unive rsity of MODERNA VACCINE 00:00:00 [place] [facility] SARS-COV-2 COVID-19 2021-01-01 Completed Unive rsity of MODERNA VACCINE 00:00:00 [place] [facility] SARS-COV-2 COVID-19 2021-01-01 Completed Unive rsity of MODERNA VACCINE 00:00:00 [place] [facility] SARS-COV-2 COVID-19 2021-01-01 Completed Unive rsity of MODERNA VACCINE 00:00:00 [place] [facility] SARS-COV-2 COVID-19 2021-01-01 Completed Unive rsity of MODERNA VACCINE 00:00:00 [place] [facility] SARS-COV-2 COVID-19 2021-01-01 Completed Unive rsity of MODERNA VACCINE 00:00:00 [place] [facility] ical Branch SARS-COV-2 COVID-19 2020-12-03 Completed Unive rsity of MODERNA VACCINE 00:00:00 [place] [facility] SARS-COV-2 COVID-19 2020-12-03 Completed Unive rsity of MODERNA VACCINE 00:00:00 [place] [facility] SARS-COV-2 COVID-19 2020-12-03 Completed Unive rsity of MODERNA VACCINE 00:00:00 [place] [facility] SARS-COV-2 COVID-19 2020-12-03 Completed Unive rsity of MODERNA VACCINE 00:00:00 [place] [facility] ical Branch SARS-COV-2 COVID-19 2020-12-03 Completed Unive rsity of MODERNA VACCINE 00:00:00 [facility] SARS-COV-2 COVID-19 2020-12-03 Completed Unive rsity of MODERNA VACCINE 00:00:00 [facility] SARS-COV-2 COVID-19 2020-12-03 Completed Unive rsity of MODERNA VACCINE 00:00:00 [facility] SARS-COV-2 COVID-19 2020-12-03 Completed Unive rsity of MODERNA VACCINE 00:00:00 [facility] SARS-COV-2 COVID-19 2020-12-03 Completed Unive rsity of MODERNA VACCINE 00:00:00 [facility] SARS-COV-2 COVID-19 2020-12-03 Completed Unive rsity of MODERNA VACCINE 00:00:00 [facility] Influenza Virus 2020-11-13 Completed Universit y of Vaccine Quad .5 mL 00:00:00 [facility] 6+ MO Branch Influenza Virus 2020-11-13 Completed Universit y of Vaccine Quad .5 mL 00:00:00 [facility] 6+ MO Branch Influenza Virus 2020-11-13 Completed Universit y of Vaccine Quad .5 mL 00:00:00 [facility] 6+ MO Branch Influenza Virus 2020-11-13 Completed Universit y of Vaccine Quad .5 mL 00:00:00 [facility] 6+ MO Branch Influenza Virus 2020-11-13 Completed Universit y of Vaccine Quad .5 mL 00:00:00 [facility] 6+ MO Branch Influenza Virus 2020-11-13 Completed Universit y of Vaccine Quad .5 mL 00:00:00 [facility] 6+ MO Branch Influenza Virus 2020-11-13 Completed Universit y of Vaccine Quad .5 mL 00:00:00 [facility] 6+ MO Branch Influenza Virus 2020-11-13 Completed Universit y of Vaccine Quad .5 mL 00:00:00 [facility] 6+ MO Branch Influenza Virus 2020-11-13 Completed Universit y of Vaccine Quad .5 mL 00:00:00 [facility] 6+ MO Branch Influenza Virus 2020-11-13 Completed Universit y of Vaccine Quad .5 mL 00:00:00 [facility] 6+ MO Branch Vital Signs Vital Name Observation Time Observation Value Comments Source Systolic blood 2021-11-06 19:35:00 132 mm[Hg] [facility] Medicine Diastolic blood 2021-11-06 19:35:00 69 mm[Hg] [facility] Medicine Heart rate 2021-11-06 19:35:00 93 /min [facility] Body temperature 2021-11-06 19:35:00 36 Pat [facility] Respiratory rate 2021-11-06 19:35:00 18 /min [facility] Body height 2021-11-06 19:35:00 160 cm [facility] Body weight 2021-11-06 19:35:00 151.32 kg [facility] BMI 2021-11-06 19:35:00 59.09 kg/m2 [facility] Systolic blood 2021-09-18 14:42:00 127 mm[Hg] [facility] Diastolic blood 2021-09-18 14:42:00 82 mm[Hg] [facility] Heart rate 2021-09-18 14:42:00 68 /min [facility] Body weight 2021-09-18 14:42:00 151.91 kg [facility] BMI 2021-09-18 14:42:00 59.32 kg/m2 [facility] BP Diastolic 2021-08-21 00:00:00 89 mm[Hg] [facility] Height 2021-08-21 00:00:00 63 [in_i] [facility] BMI (Body Mass 2021-08-21 00:00:00 58.1 kg/m2 [facility] BP Systolic 2021-08-21 00:00:00 131 mm[Hg] [facility] Body Weight 2021-08-21 00:00:00 328 [lb_av] [facility] Procedures Procedure Date / Time Performing Clinician Source Performed PAIN MANAGEMENT 2021-02-12 05:01:00 Doctor Unassigned, [facility] [place] [facility]FORMED Name Medical Bra nch CONSENT Knee Surgery [facility] Family Practice Procedure on Shoulder [facility] Fa davida Practice Maintenance of Gastric [facility] Gallbladder Surgery [facility] Fami ly Practice Appendectomy [facility] Plan of Care Planned Activity Planned Date Details Comments Source Future Scheduled 2021-11-18 Screening for [facility] Test 09:34:08 malignant neoplasm of of Med icine colon (procedure) [code = 712913438] Future Scheduled 2021-11-18 Screening for [facility] [employer] [facility] Test 09:34:08 malignant neoplasm of of Med icine breast (procedure) [code = 793243532] Future Scheduled 2021-11-18 TETANUS SHOT (ADULT) [place] [employer] Test 09:34:08 [code = TETANUS SHOT of Medi cine (ADULT)] Future Scheduled 2021-11-18 BMI FOLLOW UP PLAN [employer] Test 09:34:08 [code = BMI FOLLOW UP of Med icine PLAN] Future Scheduled 2021-11-18 Hepatitis C screening [employer] Test 09:34:08 (procedure) [code = of Medic ine 133565200] Future Scheduled 2021-11-18 Human immunodeficiency [employer] Test 09:34:08 virus screening of Medicine (procedure) [code = 984460641] Future Scheduled 2021-11-18 Screening for [facility] Test 09:34:08 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) [code = 781987644] Future Scheduled 2021-11-18 MEDICARE AWV (Initial) [employer] Test 09:34:08 [code = MEDICARE AWV of Medi cine (Initial)] Future Scheduled 2021-11-18 ZOSTER VACCINE (1 of [place] [employer] Test 09:34:08 2) [code = ZOSTER of Medicin e VACCINE (1 of 2)] Future Scheduled 2021-11-18 FLU VACCINE > 6 MONTHS [employer] Test 09:34:08 [code = FLU VACCINE > of Med icine 6 MONTHS] Future Scheduled 2021-11-13 Depression screening Uni versity of Test 00:00:00 (procedure) [code = [place] [facility] 656191690] Branch Future Scheduled 2021-11-06 ANOREC MANOM AND 1 Occurrences [facility] Test 14:07:12 EMG-GI DEPT [code = starting of Medic ine NOCPT] 11/06/2021 until 05/06/2022 Future Scheduled 2021-11-06 EGD W/MAC - GI DEPT 1 Occurrences [place] [employer] Test 14:07:11 [code = 23220] starting of Medicine 11/06/2021 until 05/06/2022 Future Scheduled 2021-11-06 COLONOSCOPY W MAC GI 1 Occurrences [employer] Test 14:07:11 DEPT [code = 43289] starting of Medic ine 11/06/2021 until 05/06/2022 Future Scheduled 2020-12-28 Creatinine measurement U niversity of Test 00:00:00 (procedure) [code = [facility] dical 54043110] Branch Future Scheduled 2020-12-28 Calculated low density U niversity of Test 00:00:00 lipoprotein [facility] cholesterol level Branch (procedure) [code = 429069740] Future Scheduled 2020-06-27 Hemoglobin A1c Universit y of Test 00:00:00 measurement [facility] (procedure) [code = Branch 23563187] Future Scheduled 2020-04-18 Diabetic foot University of Test 00:00:00 examination [facility] (regime/therapy) [code Branc h = 335552632] Future Scheduled 2019-09-16 Examination of retina Un iversity of Test 00:00:00 (procedure) [code = [facility] dical 790934928] Branch Future Scheduled 2017 Screening for occult Uni versity of Test 00:00:00 blood in feces [facility] (procedure) [code = Branch 796454657] Future Scheduled 2017 Stool DNA-based Universi ty of Test 00:00:00 colorectal cancer [facility] screening (procedure) Branch [code = 990479079903261] Future Scheduled 2017 Flexible fiberoptic Univ ersity of Test 00:00:00 sigmoidoscopy [facility] (procedure) [code = Branch 84030211] Future Scheduled 2017 Screening for University of Test 00:00:00 malignant neoplasm of [facility] colon (procedure) Branch [code = 639355316] Future Scheduled 2017 Screening for University of Test 00:00:00 malignant neoplasm of [facility] colon (procedure) Branch [code = 998224772] Future Scheduled 2017 Zoster Recombinant Unive rsity of Test 00:00:00 Vaccine (SHINGRIX) (1 [place] [facility] 2) [code = Zoster Branch Recombinant Vaccine (SHINGRIX) (1 of 2)] Future Scheduled 2007 Screening for University of Test 00:00:00 malignant neoplasm of [place] [facility] breast (procedure) Branch [code = 098490954] Future Scheduled 1988 Screening for University of Test 00:00:00 malignant neoplasm of [facility] cervix (procedure) Branch [code = 662969492] Future Scheduled 1986 DTaP,Tdap,and Td Univers ity of Test 00:00:00 Vaccines (1 - Tdap) [place] [facility] [code = DTaP,Tdap,and Branch Td Vaccines (1 - Tdap)] Future Scheduled 1977 Microalbumin University of Test 00:00:00 measurement, urine, [place] [facility] quantitative Branch (procedure) [code = 445022736] Encounters Start End Encounter Admission Attending Care Care Encounter Source Date/Time Date/Time Type Type Clinicians Facility Department ID 2020-08-22 Inpatient Tapan Martin [facility] [id number] [facility] 11:00:00 [id number] [facility] 2019-12-13 Inpatient Kaur, [facility] ENDO [id number] [facility] 07:00:00 Cas [id number] [facility] 2019-12-11 Inpatient Kaur, [facility] ENDO [id number] [facility] 07:30:00 Cas [facility] 2019-12-07 Inpatient EL Kaur, [facility] ENDO [id number] [facility] 10:00:00 Cas [facility] 2022-03-18 2022-03-18 Outpatient Leona EPREIRA [facility] [id number] [facility] 09:30:00 09:30:00 RANDALL [id number] ity of [facility] 2021-12-08 2021-12-08 [facility] [id number] Univers 00:00:00 00:00:00 [facility] [id number] it y [facility] [id number] Frankie as JAVIER?BLEA [phone] Me dical [address] MEDICAL OFFICE BUILDING 2021-12-04 2021-12-04 Outpatient KYLAH LOVETTMASON, [facility] Surgery [id number] [facility] 08:54:00 10:51:00 DEWAYNE 2021-11-19 2021-11-19 Telephone Jaziel [facility] [id number] Univers 00:00:00 00:00:00 [facility] [id number] it y of [place] [id number] Frankie as JAVIER?BLEA [phone] [address] MEDICAL OFFICE BUILDING 2021-11-15 2021-11-15 [facility] [id number] Univers 00:00:00 00:00:00 [facility] [id number] it y of [place] [id number] Frankie as PROFESSIO [phone] [address] OFFICE [facility] ONE 2021-11-06 2021-11-06 Office MASONJAYESH 1.2.840.114 [id number] [facility] 13:24:51 16:22:30 Visit DEWAYNE AMBULATOR 350.1.13.21 College Y 0.2.7.2.686 of [phone] Medi patsy 325 e 2021-11-06 2021-11-06 [facility] 1.2.840.114 [id number] Univers 00:00:00 00:00:00 [facility] [id number] it y of [place] 4.2.7.2.686 Frankie as JAVIER?BLEA [phone] [address] OFFICE BUILDING 2021-10-27 2021-10-27 [facility] 1.2.840.114 [id number] Univers 00:00:00 00:00:00 [facility] [id number] it y of [place] [id number] Frankie as PROFESSIO [id number] [address] OFFICE [facility] ONE 2021-10-16 2021-10-16 [facility] 1.2.840.114 [id number] Univers 00:00:00 00:00:00 [facility] [id number] it y of [place] [id number] Frankie as PROFESSIO [phone] [address] OFFICE [facility] ONE 2021-10-11 2021-10-11 Outpatient Aguilar_M VFP VFP [id number] [facility] 06:17:00 06:17:00 [id number] Family Practic e 2021-10-07 2021-10-07 Refmaddie [facility] 1.2.840.114 [id number] Univers 00:00:00 00:00:00 [facility] [id number] it y of [place] 4.2.7.2.686 Frankie as JAVIER?BLEA [phone] [place] dical [address] MEDICAL OFFICE [facility] 2021-10-03 2021-10-03 Outpatient Aguilar_M VFP VFP [id number] 05:34:00 05:34:00 Family Practic e 2021-09-29 2021-09-29 [facility]ill [facility] [id number] Univers 00:00:00 00:00:00 [facility] [id number] it y of SURGICAL 4.2.7.2.686 Frankie as SPECIALTI [phone] [facility] 198 [facility] 2021-09-18 2021-09-18 Office [facility] 1.2.840.114 [id number] Univers 08:40:07 08:55:07 Visit [facility] [id number] it y of [facility] 4.2.7.2.686 Frankie as JAVIER?BLEA [phone] Ks dic[address] MEDICAL OFFICE [facility] 2021-09-18 2021-09-18 Outpatient [facility] [id number] Univers 10:15:00 08:52:38 RANDALL pierre [facility] 2021-08-21 2021-08-21 Outpatient Aguilar_M VFP VFP [id number] [facility] 03:04:00 03:04:00 [id number] Family Practic e 2021-08-21 2021-08-21 Yousuf VFP [place] - [id number] V illage 00:00:00 00:00:00 [facility] Dave Medical - Pract brando GRIFFIN: [address], [place] [address] , Ph. 2021-08-20 2021-08-20 Outpatient Mimi VFP [facility] [id number] [facility] 04:30:00 04:30:00 [id number] Family Practic e 2021-03-26 2021-03-26 [facility] 1.2.840.114 [id number] 00:00:00 00:00:00 [facility] [id number] [place] [id number] Professio [phone] nal [facility] Office Building One 2021-03-25 2021-03-25 [facility] 1.2.840.114 [id number] 00:00:00 00:00:00 [facility] [id number] [place] [id number] Professio [phone] [place] [address] Office Building One 2021-03-18 2021-03-18 Telephone [facility] [id number] 00:00:00 00:00:00 [facility] [id number] [place] 4.2.7.2.686 Professio [phone] [address] 2021-03-13 2021-03-13 [facility] [id number] 00:00:00 00:00:00 [facility] [id number] [place] [id number] Professio [phone] [place] [address] Office Building One 2020-08-23 2020-08-23 Outpatient Tapan Martin [facility] LA4 [facility] 15:14:00 15:14:00 [id number] [facility] 2019-10-27 2019-10-27 Outpatient Leona KAUR NDDERREK [facility] [id number] Univers 09:55:58 23:59:00 CAS pierre [facility] Results Test Description Test Time Test Comments Results Result Comments Source SURG 2020-08-26 14:57:00 Test Item Value Reference Range Interpretation Comme nts SURG RUN DATE: (test 08/26/20 H TIFFANIE [facility] PAGE 1 RUN TIME: 1356 code = Specimen Inquiry RUN USER: INTERFACE SURG) PATIENT: PEPE MACK LOC: PiliDAISY U #: [id number] AGE/SX: 55/ F ROOM: RE08/23/20REG DR: Tapan Harper MD : 69 BED: DIS: STATUS[facility] TLOC: SPEC #: [id number] RECD: STATUS: KRISTIN RELang #: [id number] HIRO: 08/23/20 [facility] DR: Tapan Harper MD ENTERED: 08/23/20 SP TYPE: SURG OTHR DR: Trent Irving DO ORDERED: SURG PATH LVL 02/01 COPIES TO: Trent Irving DO [address] [place] [address] Tapan Harper MD [address] [place] [address] HISTOLOGY: TI SSUE ID BLK PCS DIANE LEV PROCEDURE DISPOSITION ____ ___ ___ ___ COLON, NOS A 1 2 COLO N, NOS B 1 2 COLON, NOS C 1 2 PROCEDURES: SURG PATH LVL 4 (08/23/20-115) TISSUES: A. COLON, NOS - RIGHT COLON BIO PSY B. COLON, NOS - MID COLON BIOPSY C. COLON, NOS - LEFT COLON BIOPSY CLINICA L HISTORY COLON ULCER - K63.3; ILEITIS - K52.9; PAIN - R10.84; K59.00 CPT CODES CPT CODE (S): 76732Y1 , , , , , , FINAL DIAGNOSIS A. Colon, right, biopsy: COLONIC MUCOSA WITH NO PATHOLOGIC DIAGNOSIS B. Colon, m id, biopsy: COLONIC MUCOSA WITH NO PATHOLOGIC DIAGNOSIS CONTINUED ON NEXT PAGE RUN DATE: 08/26/20 H TIFFANIE [facility] PAGE 2 RUN TIME: 1457 Specimen Inquiry RUN USER: INTERFACE SPEC #: [facility]:[id number] PATIENT: PEPE MACK #[id number] (Continued) FINAL DIAGNOSIS (Continued) C. Colon, left, [...] all as C. ba/nr Grossing performed at [facility] Pathology, [address] [place] [address], [address], [place] [address]. Stone Splitter: Leeroy Jimenes M.D. MICROSCOPIC DESCRIPTION A. Right [...] malignancy is identified. Signed SIGNATURE ON FILE Maria TeresamaryjoCarlos M 08/26/20 1457 END OF REPORT GLUCOSE BEDSIDE [id number] 08:29:00 Test Item Value Reference Range Interpretation Comments GLUCOSE BEDSIDE TESTING (test code 156 mg/dL 70-110 H = GLUBED) BASIC METABOLIC [id number] 12:40:00 Test Item Value Reference Range Interpretation [...] CA) 9.0 MG/DL 8.5-10.1 N BASIC METABOLIC [id number] 12:37:00 Test Item Value Reference Range Interpretation [...] 9.0 MG/DL 8.5-10.1 N COVID 19 INHOUSE [id number] 12:37:00 Test Item Value Reference Range Interpretation Comments COVID 19 INHOUSE AG NEGATIVE Negative Per manu facturer, (test code = negative result s should [id number]) be treated aspr esumptive and, if inconsi [...] symptoms co nsistent with COVID-19. CBC W/AUTO [id number] 12:23:00 Test Item Value Reference Range Interpretation [...] (test code NO DIFF/SCN CRITERIA = MDIFF) [id number] 15:34:00 RUN DATE: 12/13/19 [facility] PAGE 1 RUN TIME: 1535 Specimen Inquiry RUN USER: INTERFACE PATIENT: PEPE MACK LOC: PiliRodgerJAN U #: [id number] AGE/SX: 54/F ROOM: RE12/11/19REG DR: Cas Kaur MD : 69 BED: DIS: STATUS: [facility] TLOC: SPEC #: [id number] RECD: 12/11/19 STATUS: [place] #: [id number] HIRO: 12/11/19 [facility] DR: Cas Kaur MD ENTERED: 12/11/19 SP TYPE: SURG OTHR DR: Trent Irving DO ORDERED: SURG PATH LVL 01/31 COPIES TO: Trent Irving DO [address] [place] [address] Cas Kaur MD [address] [place] [address] HISTOLOGY: TISSUE ID BLK PCS DIANE LEV PROCEDURE DISPOSITION ____ ___ ___ ___ GASTRIC ANTRUM A 1 3 GASTRIC ANTRUM B 1 3 PROCEDURES: SURG PATH LVL 4 (12/11/19) TISSUES: A. GASTRIC ANTRUM - GASTRIC BIOPSY B. GASTRIC ANTRUM - DISTAL GASTRIC BIOPSY CLINICAL HISTORY EPIGASTRIC PAIN -R10.13; NAUSEA -R11.0; VOMITING -R11.10 CPT CODES CPT CODE(S): 83990M2 , , , , , , FINAL DIAGNOSIS A. Stomach, biopsy: MILD CHRONIC GASTRITIS NEGATIVE FORINTESTINAL METAPLASIA, DYSPLASIA, OR MALIGNANCY NEGATIVE FOR HELICOBACTER PYLORI ORGANISMS B. Stomach, distal, biopsy: MILD CHRONIC GASTRITIS NEGATIVE FOR INTESTINAL METAPLASIA, DYSPLASIA, OR MALIGNANCY CONTINUED ON NEXT PAGE RUN DATE: 12/13/19 [facility] - LAB PAGE 2 RUN TIME: 1535 Specimen Inquiry RUN USER: INTERFACE SPEC #: [facility]:[id number] PATIENT: PEPE MACK #[id number] (Continued)---- -------- FINAL DIAGNOSIS (Continued) NEGATIVE FOR HELICOBACTER PYLORI ORGANISMS GROSS DESCRIPTION A. Gastric biopsy. Received in formalin is a vazquez tissue fragment, 0.5 cm, all as A.B. Distal gastric biopsy. Received in formalin is a vazquez tissue fragment, 0.3 cm, all as B. shivam/nr Grossing performed at [facility] Pathology, [address] [place] [address], [address], [place] [address]. Stone Splitter: Leeroy Jimenes M.D. MICROSCOPIC DESCRIPTION A. Gastric [...] pylori organisms are identified. Signed SIGNATURE ON Carlos Reed Julissa 12/13/19 1534 END OF REPORT GLUCOSE BEDSIDE [id number] 06:17:00 Test Item Value Reference Range Interpretation Comments GLUCOSE BEDSIDE TESTING (test code 170 mg/dL 70-110 H = GLUBED) UR HCG [id number] 11:12:00 Test Item Value Reference Range Interpretation Comments UR HCG QUAL (test code = HCGQLU) NEGATIVE NEGATIVE
[2021-12-10] MEDS ORDERED: MORPHINE 4 MG/ML SYR ONE (15:21)
[2021-12-10] MEDS ORDERED: ONDANSETRON 4 MG (ODT) TAB ONE (15:21)
--- NOTE | 2021-12-10 16:21 | RAD REPORT ---
EXAM DESCRIPTION: RAD - Pelvis - 12/10/2021 3:58 pm CLINICAL HISTORY: fall COMPARISON: TRANSVAGINAL STUDY PROBE dated 11/24/2012 FINDINGS: No acute fracture. No malalignment. Bilateral acetabular degenerative changes. IMPRESSION: No acute osseous abnormality involving the pelvis.
--- NOTE | 2021-12-10 16:22 | RAD REPORT ---
EXAM DESCRIPTION: RAD - Femur Right - 12/10/2021 3:58 pm CLINICAL HISTORY: PAIN COMPARISON: No comparisons FINDINGS: No acute fracture. No malalignment. Moderate right acetabular overgrowth. Patellofemoral c ompartment spurring. IMPRESSION: No acute osseous abnormality involving the right femur.
--- NOTE | 2021-12-10 16:22 | RAD REPORT ---
EXAM DESCRIPTION: RAD - Tib Fib Right - 12/10/2021 3:58 pm CLINICAL HISTORY: PAIN COMPARISON: No comparisons FINDINGS: No acute fracture. No malalignment. Mild to moderate medial compartment degenerative goff es at the knee. Mild lateral compartment spurring. Mild patellofemoral compartment spurring. IMPRESSION: No acute osseous abnormality involving the tibia or fibula.
--- NOTE | 2021-12-10 16:22 | RAD REPORT ---
EXAM DESCRIPTION: RAD - Ankle Right 3 View - 12/10/2021 3:58 pm CLINICAL HISTORY: PAIN COMPARISON: No comparisons FINDINGS/IMPRESSION: No acute fracture. No malalignment. Calcaneal spurring.
--- NOTE | 2021-12-10 16:23 | RAD REPORT ---
EXAM DESCRIPTION: RAD - Foot Right 3 View - 12/10/2021 3:58 pm CLINICAL HISTORY: PAIN COMPARISON: No comparisons FINDINGS: No acute fracture. No malalignment. Calcaneal spurring. Mild midfoot degenerative changes. IMPRESSION: No acute osseous abnormality involving the right foot.
--- NOTE | 2021-12-10 17:47 | ER ---
Nurse's Notes [facility] Name: Maria De Jesus Acosta Age: 56 yrs Sex: Female : 1965 Arrival Date: 12/10/2021 Time: 14:00 Bed 25 Private MD: Diagnosis: Other internal derangements of right knee;Abrasion of lower leg Presentation: 12/10 14:17 Chief complaint: Chief complaint: Patient states: "I was helping someone with their tv vg1 and I guess the floor is rotten but when I stepped my Right left went through the sharon and down to the ground'. States Right leg pain. Coronavirus screen: Vaccine status: Patient reports receiving the 2nd dose of the covid vaccine. Client denies travel out of the [place] in the last 14 days. Ebola Screen: Patient negative for fever greater than or equal to 101.5 degrees Fahrenheit, and additional compatible Ebola Virus Disease symptoms. Initial Sepsis Screen: Does the patient meet any 2 criteria? No. Patient's initial sepsis screen is negative. Does the patient have a suspected source of infection? No. Patient's initial sepsis screen is negative. Risk Assessment: Do you want to hurt yourself or someone else? Patient reports no desire to harm self or others. Onset of symptoms was December 10, 2021. 14:17 Method Of Arrival: Wheelchair vg1 14:17 Acuity: EMERALD 4 vg1 Triage Assessment: 14:19 General: Appears uncomfortable, obese, Behavior is crying. Pain: Complains of pain in vg1 right foot and right leg. Musculoskeletal: Swelling present in right bueno. 14:32 Injury Description: fell through floor. 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 - Irregular menses 5 Historical: - Allergies: 14:19 Doxycycline; vg1 14:19 orange juice; vg1 14:19 kiwi; vg1 14:19 metoclopramide HCl; vg1 14:19 Reglan; vg1 - Home Meds: 14:19 alprazolam 2 mg Oral tab 3 times per day [Active]; amlodipine 10 mg tab 1 tab once vg1 daily [Active]; atorvastatin 40 mg Oral tab 1 tab once daily [Active]; clonidine HCl 0.2 mg Oral tab 1 tab 3 times per day [Active]; furosemide 20 mg Oral tab 1 tab once daily [Active]; gabapentin 600 mg Oral tab 1 tab 3 times per day [Active]; Humulin 70/30 100 unit/mL (70-30) Sub-Q susp [Active]; hydralazine 100 mg Oral tab [Active]; lisinopril 40 mg Oral tab twice a day [Active]; Hydrochlorothiazide Oral once daily [Active]; metformin 1,000 mg Oral tab 2 times per day [Active]; metoprolol tartrate 100 mg Oral tab 1 tab 2 times per day [Active]; Carroll 7.5-325 mg Oral tab 1 tab every 4 hours [Active]; Norvasc Oral once daily [Active]; Victoza 3-Ze 0.6 mg/0.1 mL (18 mg/3 mL) subcutaneous pnij [Active]; Zoloft 25 mg Oral tab 1 tab once daily [Active]; - PMHx: 14:19 Asthma; CHF; COPD; Crohn's; Diabetes - NIDDM; Hypertension; vg1 - Immunization history:: Client reports receiving the 2nd dose of the Covid vaccine. - Social history:: Smoking status: Patient denies any tobacco usage or history of. Screenin:31 Abuse screen: Denies threats or abuse. Denies injuries from another. Nutritional [facility] screening: No deficits noted. Tuberculosis screening: No symptoms or risk factors identified. Fall Risk None identified. Vital Signs: 14:17 BP 161 / 92; Pulse 105; Resp 20; Temp 97.9; Pulse Ox 95% ; Weight 149.69 kg; Height 5 1 ft. 3 in. (160.02 cm); Pain 7/10; 14:17 Body Mass Index 58.46 (149.69 kg, 160.02 cm) 1 ED Course: 14:00 Patient arrived in ED. as 14:19 Triage completed. 1 14:19 Arm band placed on. 1 14:29 Shruthi Mendoza, JCARLOS is Primary Nurse. 5 14:31 Patient has correct armband on for positive identification. Bed in low position. Call [facility] light in reach. Side rails up X 1. 14:31 No provider procedures requiring assistance completed. [facility] 15:05 Daniel Wyman PA is PHCP. [place] 15:05 Dominguez Voss MD is Attending Physician. jmm 15:58 XRAY Femur RIGHT In Process Unspecified. EDMS 15:58 XRAY Tib Fib RIGHT In Process Unspecified. EDMS 15:58 XRAY Ankle RIGHT 3 view In Process Unspecified. EDMS 15:58 XRAY Foot RIGHT 3 View In Process Unspecified. EDMS 15:58 Pelvis XRAY In Process Unspecified. EDMS 17:45 Riki Henderson MD is Referral Physician. [place] 18:02 Patient did not have IV access during this emergency room visit. [facility] Administered Medications: 15:28 Drug: morphine 4 mg Route: IM; Site: left deltoid; [facility] 15:28 Drug: Zofran (Ondansetron) 4 mg Route: PO; [facility] Outcome: 17:46 Discharge ordered by . [place] 18:02 Discharged to home ambulatory, with family. [facility] 18:02 Condition: good 18:02 Discharge instructions given to patient, Instructed on discharge instructions, follow up and referral plans. safety practices, Demonstrated understanding of instructions, follow-up care, medications, Prescriptions given X 1. 18:10 Patient left the ED. [facility] Signatures: Dispatcher [employer] EDDaniel Avina PA PA jmm Martinez, Amelia as Garcia, Victoria, RN RN vg1 Shruthi Mendoza, RN RN jh5 Corrections: (The following items were deleted from the chart) 14:20 14:19 Home Meds: Ambien 10 mg Oral tab; vg1 vg1
--- NOTE | 2021-12-10 17:47 | EDPHYS ---
Physician Documentation [facility] Name: Maria De Jesus Acosta Age: 56 yrs Sex: Female : 1965 Arrival Date: 12/10/2021 Time: 14:00 Bed 25 Private MD: ED Physician Dominguez Voss HPI: 12/10 15:15 This 56 yrs old Female presents to ER via Wheelchair with complaints of Leg jmm Injury. 15:15 The patient presents with pain. Onset: The symptoms/episode began/occurred acutely, jmm just prior to arrival. Modifying factors: The symptoms are alleviated by remaining still, the symptoms are aggravated by movement. Associated signs and symptoms: Pertinent negatives fever, numbness, weakness. This is a 56 year old female with a history of chf, copd, dm, htn that presents to the ED with complaints of right leg pain after a fall which occurred just prior to arrival. Denies head injury. . 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 - Irregular menses jh5 Historical: - Allergies: 14:19 Doxycycline; vg1 14:19 orange juice; vg1 14:19 kiwi; vg1 14:19 metoclopramide HCl; vg1 14:19 Reglan; vg1 - Home Meds: 14:19 alprazolam 2 mg Oral tab 3 times per day [Active]; amlodipine 10 mg tab 1 tab once vg1 daily [Active]; atorvastatin 40 mg Oral tab 1 tab once daily [Active]; clonidine HCl 0.2 mg Oral tab 1 tab 3 times per day [Active]; furosemide 20 mg Oral tab 1 tab once daily [Active]; gabapentin 600 mg Oral tab 1 tab 3 times per day [Active]; Humulin 70/30 100 unit/mL (70-30) Sub-Q susp [Active]; hydralazine 100 mg Oral tab [Active]; lisinopril 40 mg Oral tab twice a day [Active]; Hydrochlorothiazide Oral once daily [Active]; metformin 1,000 mg Oral tab 2 times per day [Active]; metoprolol tartrate 100 mg Oral tab 1 tab 2 times per day [Active]; Metcalfe 7.5-325 mg Oral tab 1 tab every 4 hours [Active]; Norvasc Oral once daily [Active]; Victoza 3-Ze 0.6 mg/0.1 mL (18 mg/3 mL) subcutaneous pnij [Active]; Zoloft 25 mg Oral tab 1 tab once daily [Active]; - PMHx: 14:19 Asthma; CHF; COPD; Crohn's; Diabetes - NIDDM; Hypertension; vg1 - Immunization history:: Client reports receiving the 2nd dose of the Covid vaccine. - Social history:: Smoking status: Patient denies any tobacco usage or history of. ROS: 15:15 Constitutional: Negative for fever, chills, and weight loss, Cardiovascular: Negative jmm for chest pain, palpitations, and edema, Respiratory: Negative for shortness of breath, cough, wheezing, and pleuritic chest pain. 15:15 MS/extremity: Positive for pain. 15:15 All other systems are negative. Exam: 15:15 Constitutional: This is a well developed, well nourished patient who is awake, alert, jmm and in no acute distress. Head/Face: atraumatic. Eyes: EOMI, no conjunctival erythema appreciated ENT: Moist Mucus Membranes Neck: Trachea midline, Supple Chest/axilla: Normal chest wall appearance and motion. Cardiovascular: Regular rate and rhythm. No edema appreciated Respiratory: Normal respirations, no respiratory distress appreciated Abdomen/GI: Non distended, soft Back: Normal ROM Skin: General appearance color normal 15:15 Musculoskeletal/extremity: abrasions noted to the right thigh, and lower leg. Diffusely ttp from the right hip joint to the right ankle. no deformity appreciated, full dorsalis pulse, compartments are soft, NVI. 15:15 Skin: Appearance: Color: normal in color, abrasions noted to the right thigh, and right lower leg. 15:15 Neuro: Orientation: is normal, Mentation: is normal, Memory: is normal. 15:15 Psych: Behavior/mood is pleasant, cooperative. Vital Signs: 14:17 BP 161 / 92; Pulse 105; Resp 20; Temp 97.9; Pulse Ox 95% ; Weight 149.69 kg; Height 5 vg1 ft. 3 in. (160.02 cm); Pain 7/10; 14:17 Body Mass Index 58.46 (149.69 kg, 160.02 cm) vg1 MDM: 15:06 Patient medically screened. [facility] 16:47 Data reviewed: vital signs, nurses notes. ED course: Pain has decreased in the ED. Pain [facility] continues mainly in the right knee. Will splint with knee immobilizer. . 17:44 Counseling: I had a detailed discussion with the patient and/or guardian regarding: the [facility] historical points, exam findings, and any diagnostic results supporting the discharge/admit diagnosis, radiology results, the need for outpatient follow up, to return to the emergency department if symptoms worsen or persist or if there are any questions or concerns that arise at home. 12/10 14:56 Order name: XRAY Femur RIGHT; Complete Time: 16:36 [facility] 12/10 14:56 Order name: XRAY Tib Fib RIGHT; Complete Time: 16:36 [facility] 12/10 14:56 Order name: XRAY Ankle RIGHT 3 view; Complete Time: 16:36 [facility] 12/10 14:56 Order name: XRAY Foot RIGHT 3 View; Complete Time: 16:36 [facility] 12/10 15:14 Order name: Pelvis XRAY; Complete Time: 16:36 [facility] 12/10 16:43 Order name: Knee Immobilizer; Complete Time: 17:53 [facility] 12/10 16:43 Order name: Misc. Order: walker; Complete Time: 17:53 [facility] Administered Medications: 15:28 Drug: morphine 4 mg Route: IM; Site: left deltoid; [facility] 15:28 Drug: Zofran (Ondansetron) 4 mg Route: PO; [facility] Disposition: 12/11 08:25 Co-signature as Attending Physician, Dominguez Voss MD I agree with the assessment and ebenezer plan of care. Disposition Summary: 12/10/21 17:46 Discharge Ordered Location: Home [facility] Condition: Stable [facility] Diagnosis - Other internal derangements of right knee jmm - Abrasion of lower leg [facility] Followup: [facility] - With: Riki Henderson MD - When: 2 - 3 days - Reason: Recheck today's complaints, Continuance of care, Re-evaluation by your physician Discharge Instructions: - Discharge Summary Sheet [facility] - Acute Knee Pain, Adult [facility] Forms: - Medication Reconciliation Form [facility] - Thank You Letter [facility] - Antibiotic Education [facility] - Prescription Opioid Use [facility] Prescriptions: - orphenadrine citrate 100 mg Oral Tablet Sustained Release - take 1 tablet by ORAL route 2 times per day As needed; 20 tablet; Refills: 0, jensen Product Selection Permitted Signatures: Dispatcher [employer] Dominguez Henry MD MD cha Mickail, Joel, PA PA jmm Garcia, Victoria, RN RN vg1 Shruthi Mendoza RN RN jh5 Corrections: (The following items were deleted from the chart) 12/10 14:20 14:19 Home Meds: Ambien 10 mg Oral tab; vg1 vg1
[2021-12-10 18:22] VITALS: BP 161/92; TEMP 97.9; O2SAT 95
== END 2021-12-10 18:10 | disposition home or self-care (01) ==
LOC: ER 13:57
DX: M23.8X1 Other internal derangements of right knee (principal); W19.XXXA Unspecified fall, initial encounter; E11.9 Type 2 diabetes mellitus without complications; I10 Essential (primary) hypertension; I50.9 Heart failure, unspecified; J44.9 Chronic obstructive pulmonary disease, unspecified; Z88.1 Allergy status to other antibiotic agents; Z88.8 Allergy status to other drugs, medicaments and biological substances; Z91.018 Allergy to other foods; Z79.4 Long term (current) use of insulin
CPT/HCPCS: 72170; 96372; 99283

== ENCOUNTER 2022-01-11 14:24 | Emergency (ER) | payer OTHER ==
--- OUTSIDE RECORDS SUMMARY | 2022-01-11 14:28 | XMS REPORT | Continuity of Care Document ---
:1965 Author Organization [facility] t Address [address] [place] [address] Care Team Providers Name Role Phone Vickie CAMP Primary Care Physician Unavailable Rosalio Harper Attending Clinician Unavailable Julissa Kaur Attending Clinician Unavailable ALVARO CUEVAS Attending Clinician Unavailable Oliver JOY, S Attending Clinician Annette CALERO Attending Clinician Unavailable ALVARO CUEVAS Attending Clinician Unavailable Aglillylar_M Attending Clinician Unavailable Alvjoey_R Attending Clinician Unavailable Jaziel GRIFFIN Attending Clinician Doctor Unassigned, Name Attending Clinician Unavailable Vickie Camp Admitting Clinician Unavailable ALVARO CUEVAS Admitting Clinician Unavailable Aguilaleona_M Admitting Clinician Unavailable Alvarez_R Admitting Clinician Unavailable Payers Payer Name Policy Type Policy Number Effective Date Expiration Date Annette gonzalez MEDICARE A B [id number] 2010 00:00:00 MEDICAID OF [place] [id number] 2021 00:00:00 MEDICARE PART A [id number] \\T\\ B - MEDICARE [facility]-MEDICAID - [id number] [place] B[place]: [id number] 2010 [place] 00:00:00 [place] [id number] [place] Problems Condition Condition Condition Status Onset [...] Gastroesop Disease Active U nivers hageal hageal 07-28 ity of reflux reflux [...] Medical Branch Hyperlipid Hyperlipid Disease Active U nivers emia, emia, 9 ity of unspecifie [place]spec[place] 00 Medical hyperlipid hyperlipid Br anch emia type emia type Carpal Carpal Disease Active Univers tunnel tunnel 9 ity of syndrome syndrome 00:00: [place] of right of right 00 Medica l wrist wrist Branch Chronic Chronic Disease Active Univers bilateral bilateral 9 ity of low back low back 00:00: [...] Type Date Date Clinician Doxycycl Propensi Active [facility] ine ty to 11-06 [place] adverse 00:00: of reaction 00 Medicin s to e drug Metoclop Propensi Active [facility] ramide ty to 11-06 [place] adverse 00:00: of reaction 00 Medicin s to e drug doxycycl DA Active [facility] in[facility] 12-07 [place] 00:00: d 00 [facility] metoclop DA Active U [facility] ramide 12-07 [place] 00:00: d 00 [facility] doxycycl DA Active U VOMITING [facility] ine 12-07 [place] 00:00: d 00 [facility] metoclop DA Active U UNKNOWN [facility] ramide 12-07 [place] 00:00: d 00 [facility] Toole Propensi Active Nausea Univers ty to and/or 7-11 ity of adverse Vomiting 00:00: [place] reaction 00 Medical s Branch ORANGE DRUG Active N/V Univers INGREDI 7-11 ity of 00:00: [place] 00 Medical [place] ORANGE Allergy Active Med N\\T\\V [facility] Doxycycl Propensi Active Nausea Univer s ine ty to and/or 3-16 ity of adverse Vomiting 00:00: [place] reaction 00 Medical s Branch Metoclop Propensi Active Unknown - Told by Oscar cummings ty to See comments 3-16 anesthesi i ty of Hcl adverse 00:00: ologist [place] reaction that she Medica l s should Branch add to her allergies following a procedure DOXYCYCL DRUG Active N/V Univers INE INGREDI 3-16 ity of 00:00: [place] 00 Medical [place] METOCLOP DRUG Active Unknown-Cmnt Oscar CUMMINGS INGREDI 3-16 ity of HCL 00:00: [place] [facility] DOXYCYCL Allergy Active High N\\T\\V [facility] METOCLOP Allergy Active High Other 2014-[address] RAMIDE 3-16 [facility] 00:[facility]: Medical 00 [place] NO KNOWN Allergy Active [facility]ERG[facility] Doxycycl Allergy Active [place] ine to Family substanc Practic e e Social History Social Habit Start Date Stop Date Quantity Comments Source History of tobacco Cigarette Smoker University of use [place] [facility] Exposure to Not sure University of SARS-CoV-2 (event) [place] [facility] History [facility] University o f Transport Non-Med [facility] edical Branch Tobacco use and 2021-11-06 2021-11-06 Smokeless [facility] Co llege of exposure 00:00:00 00:00:00 tobacco non-user Medicine Alcohol intake 2021-11-06 2021-11-06 Ex-drinker [facility] Col lege of 00:00:00 00:00:00 (finding) Medicine History SDWA Social 2019-08-25 2019-08-25 3 Unive rsity of Connections Phone 00:00:00 00:00:00 [facility] edical Branch History SDWA Social 2019-08-25 2019-08-25 1 Unive rsity of Connections Get 00:00:00 00:00:00 [place] Med ical Together Branch History SDWA Social 2019-08-25 2019-08-25 1 Unive rsity of Connections Moravian 00:00:00 00:00:00 [place] [facility] History SDOH Social 2019-08-25 2019-08-25 2 Unive rsity of Connections 00:00:00 00:00:00 [place] [facility] Membership Branch History SDWA Social 2019-08-25 2019-08-25 1 Unive rsity of Connections 00:00:00 00:00:00 [place] [facility] Meetings Branch History SDWA Social 2019-08-25 2019-08-25 5 Unive rsity of Connections Living 00:00:00 00:00:00 [place] [facility] History SDOH 2019-08-25 2019-08-25 0 University o f Physical Activity 00:00:00 00:00:00 [facility] edical DPW Branch History SDOH 2019-08-25 2019-08-25 0 University o f Physical Activity 00:00:00 00:00:00 [facility] edical MPS Branch History SDWA Stress 2019-08-25 2019-08-25 3 Unive rsity of [...] 1 Univers ity of Worry 00:00:00 00:00:00 [place] [facility] History SDOH Food 2019-08-25 2019-08-25 1 Univers ity of Scarcity 00:00:00 00:00:00 [place] [facility] History SDOH 2019-08-25 2019-08-25 2 University o f Transport Med 00:00:00 00:00:00 [place] Medic al Branch Tobacco Comment 2019-08-25 2019-08-25 Started at 25- Unive rsity of 00:00:00 00:00:00 end at 42 [facility] Branch Cigarettes smoked 2018-05-10 2018-05-10 Univers ity of current (pack per 00:00:00 00:00:00 ) - Reported Branch Sex [birth year] At [birth year] [facility] Co llege of 00:00:00 00:00:00 Medicine Smoking Status Start Date Stop Date Source Never smoked tobacco [facility] An ege of Medicine Former smoker 2018-05-10 00:00:00 2018-05-10 00:00:00 Universi ty of [facility] Branch Medications Ordered Filled Start Stop Current Ordering Indication Dosage Frequency Signature Comments Components Source Medication Medication Date Date Medication? Clinician (SIG) Name Name METOPROLOL Yes TAKE 1 Unive rs TARTRATE 2-14 TABLET BY ity of 100 mg 00:00: MOUTH [place] tablet 00 TWICE Medical DAILY Branch HYDRALAZINE 0 Yes [id number] TAKE 1 Univers 100 mg 2-14 TABLET BY ity of tablet 00:00: MOUTH [place] 00 THREE Medical TIMES Branch DAILY METOPROLOL Yes TAKE 1 Unive rs TARTRATE 2-14 TABLET BY ity of 100 mg 00:00: MOUTH [place] tablet 00 TWICE Medical DAILY Branch HYDRALAZINE 0 Yes [id number] TAKE 1 Univers 100 mg 2-14 TABLET BY ity of tablet 00:00: MOUTH [place] 00 THREE Medical TIMES Branch DAILY HYDROcodone 2021-0 Yes [id number] 1{tbl} Take 1 [...] Pain. Indication s: chronic pain HYDROCHLORO Yes [id number] 12.5mg TAKE 1 Univers THIAZIDE 1-19 CAPSULE BY ity o f 12.5 mg 00:00: MOUTH [place] capsule 00 DAILY Medical Branch LISINOPRIL 0 Yes [id number] TAKE 1/2 Univers 40 mg 1-19 TABLET BY ity of tablet 00:00: MOUTH [place] 00 TWICE Medical DAILY Branch HYDROCHLORO 2021-0 Yes [id number] 12.5mg TAKE 1 Univers THIAZIDE 1-19 CAPSULE BY ity o f 12.5 mg 00:00: MOUTH [place] capsule 00 DAILY Medical Branch LISINOPRIL 0 Yes [id number] TAKE 1/2 Univers 40 mg 1-19 TABLET BY ity of tablet 00:00: MOUTH [place] 00 TWICE Medical DAILY Branch Prucaloprid 0 Yes [id number] 2mg Take 2 mg [facility] e Succinate 11-06 by mouth An ege 2 MG TABS 00:00: daily. of 00 Medicin e PEG-KCl-NaC Yes [id number] [MOVI B aylor l-NaSulf-Na 11-06 PREP] Take Co llege Asc-C 00:00: as of (MOVIPREP) 00 directed. Medi patsy 100 g SOLR e NITROGLYCER 2020-[address] 1 Uni vers [...] 5 Branch MINUTES NEEDED FOR CHEST PAIN. DICLOFENAC 2020-11 Yes [id number] APPLY TO Univers SODIUM 1 % 2-02 THE ity of gel 00:00: AFFECTED [place] 00 AREA FOUR Medical TIMES Branch DAILY DICLOFENAC 2020-11 Yes [id number] APPLY TO Univers SODIUM 1 % 2-02 THE ity of gel 00:00: AFFECTED [place] 00 AREA FOUR Medical TIMES Branch DAILY metFORMIN 2020-11 Yes [id number] 1000mg Take 1 Univers 1,000 mg 1-18 tablet by ity of tablet 00:00: mouth 2 00 (two) Medical times Branch daily with meals. metFORMIN 2020-11 Yes [id number] 1000mg Take 1 Univers 1,000 mg 1-18 tablet by ity of tablet 00:00: mouth 2 (two) Medical times Branch daily with meals. colchicine 2020-11 Yes [id number] .6mg Take 1 U nivers 0.6 mg 0-07 tablet by ity of tablet 00:00: mouth [place] 00 daily. Medical Branch gabapentin 2020-11 Yes [id number] 600mg Take 1 Univers 600 mg 0-07 tablet by ity of tablet 00:00: mouth 3 00 (three) Medical times Branch daily. colchicine 2020-11 Yes [id number] .6mg Take 1 U nivers 0.6 mg 0-07 tablet by ity of tablet 00:00: mouth [place] 00 daily. Medical Branch gabapentin 2020-11 Yes [id number] 600mg Take 1 Univers 600 mg 0-07 tablet by ity of tablet 00:00: mouth 3 [place] 00 (three) Medical times Branch daily. TRUEPLUS Yes USE TWICE Univ ers INSULIN 1 9-14 DAILY ity of mL 30 gauge 00:00: [place] x 5/16 Syrg 00 Medical Branch TRUEPLUS Yes USE TWICE Univ ers INSULIN 1 9-14 DAILY ity of mL 30 gauge 00:00: [place] x 5/16 Syrg 00 [facility] insulin NPH 0 Yes [id number] ADMINISTER Univers and regular 8-25 70 UNITS ity of human 70-30 00:00: [place]ER THE [place] (HUMULIN 00 SKIN EVERY Medic al 70/30 U-100 MORNING Branc h INSULIN) THEN 100 unit/mL ADMINISTER (70-30) 60 UNITS injection UNDER THE SKIN EVERY EVENING insulin NPH 2020-0 Yes [id number] ADMINISTER Univers and regular 8-25 70 UNITS ity of human 70-30 00:00: [place] (HUMULIN 00 SKIN EVERY Medic al 70/30 U-100 MORNING Branc h INSULIN) THEN 100 unit/mL ADMINISTER (70-30) 60 UNITS injection UNDER THE SKIN EVERY EVENING mirtazapine 0 Yes 15mg Take 15 mg Univers 15 mg 7-14 by mouth ity of tablet 09:38: at [place] [address] bedtime. [facility] mesalamine 0 Yes 1.5g Take 1.5 g U nivers 0.375 gram 7-14 by mouth ity o f 24 hr 09:38: daily. [place] [facility] 49 [facility] mirtazapine 0 Yes 15mg Take 15 mg Univers 15 mg 7-14 by mouth ity of tablet 09:38: at [place] [address] bedtime. [facility] mesalamine 0 Yes 1.5g Take 1.5 g U nivers 0.375 gram 7-14 by mouth ity o f 24 hr 09:38: daily. [place] [facility] 49 [facility] predniSONE 2020-0 Yes 10mg Take 10 mg U nivers 10 mg 6-22 by mouth ity of tablet 00:00: daily. [place] [facility] predniSONE 2020-0 Yes 10mg Take 10 mg U nivers 10 mg 6-22 by mouth ity of tablet 00:00: daily. [address] spironolact 2020-0 Yes 25mg Take 25 mg Univers one 25 mg 6-08 by mouth ity of tablet 00:00: daily. [place] [facility] spironolact 0 Yes 25mg Take 25 mg Univers one 25 mg 6-08 by mouth ity of tablet 00:00: daily. [address] hydroCHLORO 0 Yes Essential 12.5mg Take 1 Univers thiazide 4-14 hypertensio capsule by ity of 12.5 mg 00:00: n mouth [place] capsule 00 daily. Medical Branch neomycin-po Yes Other 3[drp] Place 3 Univers lymyxin-hyd 4-14 infective Drops in ity of rocortisone 00:00: acute left ear 4 [place] 3.5-10,000- 00 otitis (four) Medi mari 1 externa of times Branch mg/mL-unit/ left ear daily. mL-% otic susp neomycin-po Yes [id number] 3[drp] Place 3 Univers lymyxin-hyd 4-14 Drops in ity of rocortisone 00:00: left ear 4 [place] 3.5-10,000- 00 (four) Medica l 1 times Branch mg/mL-unit/ daily. mL-% otic susp neomycin-po Yes [id number] 3[drp] Place 3 Univers lymyxin-hyd 4-14 Drops in ity of rocortisone 00:00: left ear 4 [place] 3.5-,000- 00 (four) Medica l 1 times Branch mg/mL-unit/ daily. mL-% otic susp HYDROcodone Yes chronic 1{tbl} Take 1 Univers -acetaminop 4-14 pain tablet by ity of hen 7.5-325 00:00: mouth [place] mg per 00 every 6 Medical tablet (six) Branch hours as needed for Pain. Indication s: chronic pain insulin NPH Yes Type 2 ADMINISTER Univers and regular 3-09 diabetes 100 UNITS ity of human 70-30 00:00: mellitus UNDER THE [place] (HUMULIN 00 with SKIN EVERY Medic al [...] " Syrg hyperglycem E11.65 ia insulin Yes [id number] 1{each} 1 Each 2 Univers U-500 3-08 (two) ity of syringe-nee 00:00: times [place] dle 1/2 mL 00 daily with Med ical 31 gauge x meals. Branch 15" Syrg E11.65 insulin Yes [id number] 1{each} 1 Each 2 Univers U-500 3-08 (two) ity of syringe-nee 00:00: times [place] dle 1/2 mL 00 daily with Med ical 31 gauge x meals. Branch 15" Syrg E11.65 metoprolol Yes 100mg Take 1 Univ ers [...] long-term meals. current use of insulin TRELEGY 2019- Yes INHALE 1 Univer s [...] 00:00: [place] solution 00 Medical Branch ipratropium 2019- Yes Univer s 0.02 % 2-23 ity of nebulizer 00:00: [place] solution 00 Medical Branch ipratropium 2020- Yes Univer s 0.02 % 2-23 ity of nebulizer 00:00: [place] solution 00 Medical Branch zolpidem 10 2019-11 Yes 10mg Take 10 mg Univers mg tablet 2-14 by mouth ity of 00:00: at bedtime [place] 00 as needed. Medical Branch zolpidem 10 2020-1 Yes 10mg Take 10 mg Univers mg [...] 8 H PRF Branch ABDOMINAL PAIN. dicyclomine 2019-11 Yes TK 1 C PO U nivers 10 mg 1-24 IN THE ity of capsule 00:00: MORNING [place] 00 AND THEN Q Medical 8 H PRF Branch ABDOMINAL PAIN. dicyclomine 2019-11 Yes TK 1 C PO U nivers 10 mg 1-24 IN THE ity of capsule 00:00: MORNING [place] 00 AND THEN Q Medical 8 H PRF Branch ABDOMINAL PAIN. MOTEGRITY 2019-11 Yes TK 1 T PO Uni vers tablet 1-12 D ity of 00:00: 00 Medical Branch MOTEGRITY 2019- Yes TK 1 T PO Uni vers tablet 1-12 D ity of 00:00: 00 Medical Branch MOTEGRITY 2019- Yes TK 1 T PO Uni vers tablet 1-12 D ity of 00:00: 00 Medical Branch gabapentin 2019-11 Yes Chronic 600mg Take 1 U nivers 600 mg 1-11 bilateral tablet by ity of tablet 00:00: low back mouth 3 [place] 00 pain with (three) Medical bilateral times Branch sciatica daily. ondansetron 2019-11 Yes TK 2 TS PO Univers 4 mg tablet 1-04 Q 12 H ity of 00:00: 00 Medical Branch ondansetron 2019-11 Yes as needed. Univers 4 mg tablet 1-04 ity of 00:00: [place] 00 Medical Branch ondansetron 2019- Yes as needed. Univers 4 mg tablet 1-04 ity of 00:00: [place] [facility] Branch diclofenac 2019- Yes Morbid 75mg Take 1 Uni vers 75 mg EC 0-08 obesity tablet by ity of tablet 00:00: with body mouth 2 [place] as 00 mass index (two) Medical of 50 or times Branch higher daily with meals. diclofenac 2019- Yes [id number] 75mg Take 1 Univers 75 mg EC 0-08 tablet by ity of tablet 00:00: mouth 2 [place] (two) Medical times Branch daily with meals. diclofenac 2019-11 Yes [id number] 75mg Take 1 Univers 75 mg EC 0-08 tablet by ity of tablet 00:00: mouth 2 [place] (two) Medical times Branch daily with meals. [...] Medical TIMES Branch DAILY CLONIDINE 2020-0 Yes [id number] TAKE 1 Un ally 0.2 mg 8-06 TABLET BY ity of tablet 00:00: MOUTH THREE Medical TIMES Branch DAILY CLONIDINE 2020-0 Yes [id number] TAKE 1 Un ally 0.2 mg 8-06 TABLET BY ity of tablet 00:00: MOUTH 00 THREE Medical TIMES Branch DAILY mesalamine 2020-0 Yes 1.5g Take 1.5 g U nivers 0.375 gram 7-13 by mouth ity o f 24 hr 19:23: daily. [place] capsule 21 Medical Branch sulfamethox 2020-0 Yes TK 1 T PO U nivers azole-trime 7-08 BID ity of thoprim 00:00: [place] 800-160 mg 00 Medical per tablet Branch sulfamethox 2020-0 Yes TK 1 T PO U nivers azole-trime 7-08 BID ity of thoprim 00:00: [place] 800-160 mg 00 Medical per tablet Branch sulfamethox 2019-0 Yes TK 1 T PO U nivers azole-trime 7-08 BID ity of thoprim 00:00: 800-160 mg 00 Medical per tablet Branch AMITIZA 24 Yes TK 1 C PO Un ally mcg capsule 7-06 BID ity of 00:00: [place] [facility] AMITIZA 24 Yes TK 1 C PO Un ally mcg capsule 7-06 BID ity of 00:00: Medical Branch AMITIZA 24 Yes TK 1 C PO Un ally mcg capsule 7-06 BID ity of 00:00: [place] [facility] XIFAXAN 550 Yes Univer s mg tablet 5-14 ity of 00:00: [place] [facility] XIFAXAN 550 2019-0 Yes as needed. Univers mg tablet 5-14 ity of 00:00: [place] [facility] XIFAXAN 550 Yes as needed. Univers mg tablet -14 ity of 00:00: [place] [facility] Branch insulin Yes Uncontrolle Take 50 Univers regular 4-21 d type 2 units with it y of human 500 00:00: diabetes breakfast [place] unit/mL 00 mellitus lunch and Med ical injection with dinner Branch hyperglycem E11.65 ia VICTOZA 2019-0 Yes INJECT 1.8 Univ ers 3-PATRICK 0.6 4-06 MG UNDER ity of mg/0.1 mL 00:00: THE SKIN [place] (18 mg/3 00 DAILY Medical mL) Branch injection VICTOZA 2019-0 Yes INJECT 1.8 Univ ers 3-PATRICK 0.6 4-06 MG UNDER ity of mg/0.1 mL 00:00: THE SKIN [place] (18 mg/3 00 DAILY Medical mL) Branch injection VICTOZA 2019-0 Yes INJECT 1.8 Univ ers 3-PATRICK 0.6 [...] Medical moncho type evening. Branch atorvastati Yes [id number] 40mg Take 1 Univers n 40 mg 5-28 tablet by ity of tablet 00:00: mouth [place] 00 every Medical evening. Branch atorvastati Yes [id number] 40mg Take 1 Univers n 40 mg [...] 00 daily. Medical Branch Cholecalcif 2017-11 Yes [id number] Take 1 Un ally alayna, 0-01 capsule by ity of Vitamin D3, 00:00: mouth [place] 50,000 unit 00 weekly. Medic al capsule Branch Cholecalcif 2017-11 Yes [id number] Take 1 Un ally alayna, 0-01 capsule by ity of Vitamin D3, 00:00: mouth [place] 50,000 unit 00 weekly. Medic al capsule Branch Cholecalcif 2017-11 Yes [id number] Take 1 Un ally alayna, 0-01 capsule [...] needed for Wheezing or Shortness of Breath. dicyclomine dicyclomine No dicyclomin [facility] 10 mg 10 mg e 10 mg Family capsule capsule capsule Practi c TAKE 1 TAKE 1 TAKE 1 e CAPSULE BY CAPSULE BY CAPSULE BY MOUTH EVERY MOUTH EVERY MOUTH 8 HOURS 8 HOURS EVERY 8 HOURS gabapentin gabapentin No gabapentin [facility] 600 mg 600 mg 600 mg [...] SKIN EVERY EVENING hydralazine hydralazine No hydralazin [facility] 100 mg 100 mg e 100 mg Family tablet TAKE tablet TAKE tablet Practic 1 TABLET BY 1 TABLET BY TAKE 1 e MOUTH THREE MOUTH THREE TABLET BY TIMES DAILY TIMES DAILY MOUTH THREE TIMES DAILY hydrochloro hydrochloro No hydrochlor [facility] thiazide thiazide othiazide Fa davida 12.5 mg 12.5 mg 12.5 mg Practi c capsule capsule capsule e TAKE 1 TAKE 1 TAKE 1 CAPSULE BY CAPSULE BY CAPSULE BY MOUTH DAILY MOUTH DAILY MOUTH DAILY hydrocodone hydrocodone No hydrocodon [facility] 7.5 7.5 e 7.5 [facility] mg-acetamin mg-acetamin mg-acetami Practic ophen 325 ophen [...] No insulin [place] e syringe syringe syringe [facility] U-100 with U-100 with U-100 with Practic needle 1 mL needle 1 mL needle 1 e 31 gauge x 31 gauge x mL 31 5/16" USE 5/16" USE gauge x TWICE DAILY TWICE DAILY 03/16" USE WITH MEALS WITH MEALS TWICE DAILY WITH MEALS [facility] bromide m bromide Fami ly 0.02 % 0.02 % 0.02 % Practic solution solution solution e for for for inhalation inhalation inhalation lisinopril lisinopril lisinopril [facility] 40 mg 40 mg 40 mg Family tablet TAKE tablet TAKE tablet Practic 1/2 TABLET 1/2 TABLET TAKE 1/2 e BY MOUTH BY MOUTH TABLET BY TWICE DAILY TWICE DAILY MOUTH TWICE DAILY mesalamine mesalamine No mesalamine [facility] ER 0.375 ER 0.375 ER 0.375 Fam ramses gram gram gram Practic capsule,ext capsule,ext capsule,ex e ended ended tended release 24 release 24 release 24 hr TAKE 4 hr TAKE 4 hr TAKE 4 CAPSULES BY CAPSULES BY CAPSULES MOUTH DAILY MOUTH DAILY BY MOUTH DAILY metformin metformin No metformin [place] 1,000 mg 1,000 mg 1,000 mg Fam ramses tablet TAKE tablet TAKE tablet Practic 1 TABLET BY 1 TABLET BY TAKE 1 e MOUTH TWICE MOUTH TWICE TABLET BY DAILY WITH DAILY WITH MOUTH MEALS MEALS TWICE DAILY WITH MEALS metoprolol metoprolol No metoprolol [facility] tartrate tartrate tartrate Fam ramses 100 [...] mL 30 gauge mL 30 Practic x 16" x 5/16" gauge x e syringe USE [...] NEEDED FOR INSOMNIA albuterol albuterol No albuterol [place] sulfate 2.5 sulfate 2.5 sulfate Family mg/3 [...] SHORTNESS OF BREATH allopurinol allopurinol No allopurino [facility] 300 mg 300 mg l 300 mg Family tablet TAKE tablet TAKE tablet Practic 1 TABLET BY 1 TABLET BY TAKE 1 e MOUTH TWICE MOUTH TWICE TABLET BY DAILY. DAILY. MOUTH TWICE DAILY. alprazolam alprazolam No alprazolam [facility] 2 mg tablet 2 mg tablet 2 mg F amily TAKE 1 TAKE 1 tablet Practic TABLET BY TABLET BY TAKE 1 e MOUTH THREE MOUTH THREE TABLET BY TIMES DAILY TIMES DAILY MOUTH NEEDED NEEDED THREE FOR ANXIETY FOR ANXIETY TIMES DAILY NEEDED FOR ANXIETY amlodipine amlodipine No amlodipine [facility] 5 mg tablet 5 mg tablet 5 mg F amily TAKE 1 TAKE 1 tablet Practic TABLET BY TABLET BY TAKE 1 e MOUTH EVERY MOUTH EVERY TABLET BY DAY DAY MOUTH EVERY DAY atorvastati atorvastati No atorvastat [facility] n 20 mg n 20 mg in 20 mg Famil y tablet TAKE tablet TAKE tablet Practic 1 TABLET BY 1 TABLET BY TAKE 1 e MOUTH EVERY MOUTH EVERY TABLET BY DAY DAY MOUTH EVERY DAY BD Insulin BD Insulin No BD Insulin [facility] Syringe Syringe Syringe Family U-500 1/2 U-500 1/2 U-500 1/2 Practic mL 31 gauge mL 31 gauge mL 31 e x 1564" x 1564" gauge x USE 1 USE 1 " [...] DAILY TWICE DAILY clonidine clonidine No clonidine [facility] HCl 0.2 mg HCl 0.2 mg HCl [...] ONSET OF DIARRHEA cyclobenzap cyclobenzap No cyclobenza [facility] rine 10 mg rine 10 mg wiley [...] OR EAR PAIN diclofenac diclofenac No diclofenac [facility] 1 % topical 1 % topical 1 % F amily gel APPLY gel APPLY topical Pr actic TO THE TO THE gel APPLY e AFFECTED AFFECTED TO THE AREA FOUR AREA FOUR AFFECTED TIMES DAILY TIMES DAILY AREA FOUR TIMES DAILY diclofenac diclofenac No diclofenac [facility] sodium 75 sodium 75 sodium 75 Family mg mg mg Practic tablet,artem tablet,artem tablet,del e yed release yed release ayed TAKE 1 TAKE 1 release TABLET BY TABLET BY TAKE 1 MOUTH TWICE MOUTH TWICE TABLET BY DAILY WITH DAILY WITH MOUTH MEALS MEALS TWICE DAILY WITH MEALS Immunizations Ordered Filled Immunization Date Status Comments Formerly [facility] e Immunization Name Name SARS-COV-2 COVID-19 2021-07-11 Completed Unive rsity of MODERNA VACCINE 00:00:[address] [facility] [place] SARS-COV-2 COVID-19 2021-07-11 Completed Unive rsity of MODERNA VACCINE 00:00:[address] [facility] [place] [place] SARS-COV-2 COVID-19 2021-01-01 Completed Unive rsity of MODERNA VACCINE 00:00:[address] [facility] [place] [place] SARS-COV-2 COVID-19 2021-01-01 Completed Unive rsity of MODERNA VACCINE 00:00:[address] [facility] [place] SARS-COV-2 COVID-19 2021-01-01 Completed Unive rsity of MODERNA VACCINE 00:00:[address] [facility] [place] [place] SARS-COV-2 COVID-19 2020-12-03 Completed Unive rsity of MODERNA VACCINE 00:00:[address] [facility] [place] [place] SARS-COV-2 COVID-19 2020-12-03 Completed Unive rsity of MODERNA VACCINE 00:00:[address] [facility] [place] [place] SARS-COV-2 COVID-19 2020-12-03 Completed Unive rsity of MODERNA VACCINE 00:00:[address] [facility] [place] [place] Influenza Virus 2020-11-13 Completed Universit y of Vaccine Quad .5 mL 00:00:00 [facility] IM 6+ MO Branch Influenza Virus 2020-11-13 Completed Universit y of Vaccine [place] .5 mL 00:00:00 [facility] IM 6+ MO Branch Influenza Virus 2020-11-13 Completed Universit y of Vaccine Quad .5 mL 00:00:00 [facility] 6+ MO Branch Vital Signs Vital Name Observation Time Observation Value Comments Source HEIGHT 2022-01-09 09:38:00 160 cm WEIGHT 2022-01-09 09:38:00 151.501 kg HEIGHT 2022-01-08 12:04:00 160 cm WEIGHT 2022-01-08 12:04:00 149.687 kg HEIGHT 2022-01-09 09:38:00 160 cm WEIGHT 2022-01-09 09:38:00 151.501 kg HEIGHT 2022-01-08 12:04:00 160 cm WEIGHT 2022-01-08 12:04:00 149.687 kg Systolic blood 2021-12-18 21:40:00 133 mm[Hg] Univer sity of pressure [facility] Diastolic blood 2021-12-18 21:40:00 68 mm[Hg] Unive rsity of pressure [facility] Heart rate 2021-12-18 21:40:00 88 /min [facility] Body height 2021-12-18 21:40:00 160 cm [facility] Body weight 2021-12-18 21:40:00 152.273 kg [facility] BMI 2021-12-18 21:40:00 59.47 kg/m2 [facility] Oxygen saturation in 2021-12-18 21:40:00 93 /min [facility] Arterial blood by [facility] Pulse oximetry Branch Systolic blood 2021-11-06 19:35:00 132 mm[Hg] [facility] pressure Medicine Diastolic blood 2021-11-06 19:35:00 69 mm[Hg] [facility] Medicine Heart rate 2021-11-06 19:35:00 93 /min [facility] Body temperature 2021-11-06 19:35:00 36 Pat [facility] Respiratory rate 2021-11-06 19:35:00 18 /min [facility] Body height 2021-11-06 19:35:00 160 cm [facility] Body weight 2021-11-06 19:35:00 151.32 kg [facility] BMI 2021-11-06 19:35:00 59.09 kg/m2 [facility] BP Diastolic 2021-08-21 00:00:00 89 mm[Hg] [facility] Height 2021-08-21 00:00:00 63 [in_i] [facility] BMI (Body Mass 2021-08-21 00:00:00 58.1 kg/m2 [facility] Family Index) Practice BP Systolic 2021-08-21 00:00:00 131 mm[Hg] [facility] Body Weight 2021-08-21 00:00:00 328 [lb_av] [facility] Procedures Procedure Date / Time Performing Clinician Source Performed PAIN MANAGEMENT 2021-02-12 05:01:00 Doctor Unassigned, No Univer [facility] AGREEMENT & INFORMED Name Medical Bra [facility] CONSENT Knee Surgery [facility] Procedure on Shoulder [facility] Fa davida Practice Maintenance of Gastric [facility] amily Band Practice Gallbladder Surgery [facility] Fami ly Practice Appendectomy [facility] Plan of Care Planned Activity Planned Date Details Comments Source Future Scheduled 2021-11-18 Screening for [facility] Test 09:34:08 malignant neoplasm of of Med icine colon (procedure) [code = 351269394] Future Scheduled 2021-11-18 Screening for [facility] Col lege Test 09:34:08 malignant neoplasm of of Med icine breast (procedure) [code = 417302060] Future Scheduled 2021-11-18 TETANUS SHOT (ADULT) [employer] Test 09:34:08 [code = TETANUS SHOT of Medi cine (ADULT)] Future Scheduled 2021-11-18 BMI FOLLOW UP PLAN [employer] Test 09:34:08 [code = BMI FOLLOW UP of Med icine PLAN] Future Scheduled 2021-11-18 Hepatitis C screening [employer] Test 09:34:08 (procedure) [code = of Medic ine 948128477] Future Scheduled 2021-11-18 Human immunodeficiency [employer] Test 09:34:08 virus screening of Medicine (procedure) [code = 006447594] Future Scheduled 2021-11-18 Screening for [facility] [employer] Test 09:34:08 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) [code = 263373785] Future Scheduled 2021-11-18 MEDICARE AWV (Initial) [facility] Test 09:34:08 [code = MEDICARE AWV of Medi cine (Initial)] Future Scheduled 2021-11-18 ZOSTER VACCINE (1 of [facility] Test 09:34:08 2) [code = ZOSTER of Medicin e VACCINE (1 of 2)] Future Scheduled 2021-11-18 FLU VACCINE > 6 MONTHS B [facility] Test 09:34:08 [code = FLU VACCINE > of Med icine 6 MONTHS] Future Scheduled 2021-11-13 Depression screening Uni versity of Test 00:00:00 (procedure) [code = [facility] dical 987922149] Branch Future Scheduled 2021-11-06 ANOREC MANOM AND 1 Occurrences [facility] Test 14:07:12 EMG-GI DEPT [code = starting of Medic ine NOCPT] 11/06/2021 until 05/06/2022 Future Scheduled 2021-11-06 EGD W/MAC - GI DEPT 1 Occurrences [facility] Test 14:07:11 [code = 20369] starting of Medicine 11/06/2021 until 05/06/2022 Future Scheduled 2021-11-06 COLONOSCOPY W MAC GI 1 Occurrences [facility] Test 14:07:11 DEPT [code = 86794] starting of Medic ine 11/06/2021 until 05/06/2022 Future Scheduled 2020-12-28 Creatinine measurement U niversity of Test 00:00:00 (procedure) [code = [facility] dical 01656817] Branch Future Scheduled 2020-12-28 Calculated low density U niversity of Test 00:00:00 lipoprotein [facility] cholesterol level Branch (procedure) [code = 601509210] Future Scheduled 2020-06-27 Hemoglobin A1c Universit y of Test 00:00:00 measurement [facility] (procedure) [code = Branch 45306696] Future Scheduled 2020-04-18 Diabetic foot University of Test 00:00:00 examination [facility] (regime/therapy) [code Branc h = 801149632] Future Scheduled 2019-09-16 Examination of retina Un iversity of Test 00:00:00 (procedure) [code = [place] [facility] dical 037665091] Branch Future Scheduled 2017 Screening for occult Uni versity of Test 00:00:00 blood in feces [facility] (procedure) [code = Branch 629170852] Future Scheduled 2017 Stool DNA-based Universi ty of Test 00:00:00 colorectal cancer [facility] mari screening (procedure) Branch [code = 745828116179582] Future Scheduled 2017 Flexible fiberoptic Univ ersity of Test 00:00:00 sigmoidoscopy [facility] (procedure) [code = Branch 79552475] Future Scheduled 2017 Screening for University of Test 00:00:00 malignant neoplasm of [facility] colon (procedure) Branch [code = 529683791] Future Scheduled 2017 Screening for University of Test 00:00:00 malignant neoplasm of [facility] colon (procedure) Branch [code = 459942962] Future Scheduled 2017 Zoster Recombinant Unive rsity of Test 00:00:00 Vaccine (SHINGRIX) (1 [facility] of ) [code = Zoster Branch Recombinant Vaccine (SHINGRIX) (1 of 2)] Future Scheduled 2007 Screening for University of Test 00:00:00 malignant neoplasm of [facility] breast (procedure) Branch [code = 390831380] Future Scheduled 1988 Screening for University of Test 00:00:00 malignant neoplasm of [facility] cervix (procedure) Branch [code = 971220113] Future Scheduled 1986 DTaP,Tdap,and Td Univers ity of Test 00:00:00 Vaccines (1 - Tdap) [place] [facility] [code = DTaP,Tdap,and Branch Td Vaccines (1 - Tdap)] Future Scheduled 1977 Microalbumin University of Test 00:00:00 measurement, urine, [place] [facility] quantitative Branch (procedure) [code = 099982191] Encounters Start End Encounter Admission Attending Care Care Encounter Source Date/Time Date/Time Type Type Clinicians Facility Department ID 2020-08-22 Inpatient Tapan Martin [facility]O [id number] [facility] 11:00:00 [id number] [facility] 2019-12-13 Inpatient Kaur, [facility] ENDO [id number] [facility] 07:00:00 Zacarias [id number] [facility] 2019-12-11 Inpatient Kaur, [facility] ENDO [id number] [facility] 07:30:00 Zacarias [facility] 2019-12-07 Inpatient EL GLORIA Kaur ENDO [id number] [facility] 10:00:00 Zacarias [facility] 2022-01-09 2022-01-09 Outpatient KYLAH CUEVAS [facility] [id number] [facility] 07:39:00 14:08:00 DEWAYNE 2022-01-08 2022-01-08 Outpatient EL [facility] SLE [id number] SLE 12:18:15 23:59:00 2021-12-18 2021-12-18 [facility] [id number] Univers 15:45:00 16:15:00 Visit Guillermo [facility] [id number] it y [facility] [id number] Frankie as JAVIER?BLEA [phone] [address] MEDICAL OFFICE [facility] 2021-12-18 2021-12-18 Outpatient Leona [facility] [id number] Univers 15:45:00 15:45:00 [facility] 2021-12-04 2021-12-04 Outpatient KYLAH CUEVAS [facility] Surgery [id number] SLEH 08:54:00 10:51:00 DEWAYNE 2021-11-06 2021-11-06 Office [facility] [id number] [facility] 13:24:51 16:22:30 Visit DEWAYNE AMBULATOR 350.1.13.21 College Y 0.2.7.2.686 [id number] [facility] patsy 325 e 2021-10-11 2021-10-11 Outpatient Aguilar_M VFP VFP [id number] Village 06:17:00 06:17:00 [id number] Family Practic e 2021-10-03 2021-10-03 Outpatient Aguilar_M VFP VFP [id number] [id number] [place] 05:34:00 05:34:00 [id number] Family Practic e 2021-08-21 2021-08-21 Outpatient Aguilar_M VFP VFP [id number] [facility] 03:04:00 03:04:00 [id number] Family Practic e 2021-08-21 2021-08-21 Yousuf VFP [place] - [id number] V illage 00:00:00 00:00:00 [facility] Family [place], Medical - Pract ic MD: Chase SRodger VM_HOU[address] [place] [address] , Ph. 2021-08-20 2021-08-20 Outpatient Alvjoey_R VFP VFP [id number] [facility] 04:30:00 04:30:00 [id number] Family Practic e 2021-03-26 2021-03-26 [facility]ie [facility] [id number] 00:00:00 00:00:00 [facility] [id number] [place] 4.2.7.2.686 Professio [phone] [place] [address] [address] 2021-03-25 2021-03-25 [facility] [id number] 00:00:00 00:00:00 [facility] [id number] [place] 4.2.7.2.686 Professio [phone] [place] [address] [address] 2021-03-18 2021-03-18 [facility] [id number] 00:00:00 00:00:00 Randall [place] 350.1.13.10 [place] 4.2.7.2.686 Professio [phone] 2021-03-13 2021-03-13 [facility] [id number] 00:00:00 00:00:00 [facility] [id number] [place] 4.2.7.2.686 Professio [phone] [place] [address] [address] 2020-08-23 2020-08-23 Outpatient Tapan Martin [facility] ENDO LA4 [facility] 15:14:00 15:14:00 [id number] [facility] Results Test Description Test Time Test Comments Results Result Comments Source POCT-GLUCOSE METER 2022-01-09 13:54:18 Test Item Value Reference Range Interpretation Comme nts POC-GLUCOSE METER (BEAKER) 133 mg/dL 70-110 H : TESTED AT [facility] [address] (test code = 1538) [place], [address]: Impregnator/Techni miguelina ID = [id number] for Marybel Earl POCT-GLUCOSE [id number] 10:12:16 Test Item Value Reference Range Interpretation Comments POC-GLUCOSE METER 135 mg/dL 70-110 H : TESTED A T [facility] [address] (BEAKER) (test code = MIRNA Delgadillo [place], 1538) [address]: Impregnator/Techni miguelina ID = [id number] for HOLLY FULLER MAYELA SARS-COV2/RT-PCR ([facility])2022-01-09 09:03:44 Test Item Value Reference Range Interpretation Comments SARS-COV2/RT-PCR Negative Negative The SARS-Co V-2 target (test code = nucleic acids a re not 6830975) detected in thi s specimen. Negative result s do not preclude SARS-C oV-2 infection and s hould not be used as the kaye e basis for patient managem ent decisions. Nega tive results must be combine d with clinical observ ations, patient history , and epidemiological information. A false negativ e result may occur if a spec imen is improperly an ected, transported or handled. This SARS CoV-2 test is a rapid, real-doroteo e RT-PCR test intended for th e qualitative detection of nu cleic acid from SARS-CoV-2 in a nasopharyngeal swab specimen collected from individuals suspected of CO VID-19 by their healthcar e provider. This test has been authorized by FDA under an EUA for use by authorized laboratories. This test is only authorized for the duration of the declaration that circumstances exist justifying the authorization of emergency use of in vitro diagnostic tests for detection and/or diagnosis of COVID-19 under Section 564(b)(1) of the Federal Food, Drug and Cosmetic Act, 21 U.S.C. 360bbb- 3(b)(1), unless the authorization is terminated or revoked sooner. Fact Sheet for Healthcare Providers: https://www.cephe id.com/Documents/Xpert%20Xpress%20SARS%20CoV-2/Fact%20Sheets/3023802%20SARS-COV -2%20HEALTHCARE%20PROVIDERS%20FACT%20SHEET.pdf Fact Sheet for Healthcare Patients: https://www.[employer]/Documents/Xpert %20Xpress%20SARS%20CoV-2/Fact%20Sheets/3023801%12PYWN-BVW-4%20PATIENT%20FACT%20 SHEET.ypyWFPF0763-20-80 14:57:00 Test Item Value Reference Range Interpretation Comments SURG (test code = SURG) RUN DATE: 08/26/20 [facility] PAGE 1 RUN TIME: 1457 Specimen Inquiry RUN USER: INTERFACE PATIENT: PEPE MACK LOC: ANDI U #: [id number] AGE/SX: 55/F ROOM: RE08/23/20REG DR: Tapan Harper MD : 69 BED: DIS: STATUS[place] [facility] [place]: SPEC #: [id number] RECD: 08/23/20 STATUS: KRISTIN [place] #: [id number] AN: 08/23/[address]: Tapan Harper MD ENTERED: 08/23/20 SP TYPE: SURG OTHR DR: Trent Camp DO ORDERED: SURG PATH LVL 02/01 COPIES TO: Trent Camp [place] [address] [place] [address] Tapan Harper MD [address] [place] [address] HISTOLOGY: TISSUE ID BLK PCS DIANE LEV PROCEDURE DISPOSITION ____ ___ ___ ___ COLON, NOS A 1 2 COLON, NOS B 1 2 COLON, NOS C 1 2 PROCEDURES: SURG PATH LVL 4 (08/23/20) TISSUES: A. COLON, NOS - RIGHT COLON BIOPSY B. COLON, NOS - MID COLON BIOPSY C. COLON, NOS - LEFT COLON BIOPSY CLINICAL HISTORY COLON ULCER - K63.3; ILEITIS - K52.9; PAIN - R10.84; K59.00 CPT CODES CPT CODE(S): 90452U9 , , , , , , FINAL DIAGNOSIS A. Colon, right, biopsy: COLONIC MUCOSA WITH NO PATHOLOGIC DIAGNOSIS B. Colon, mid, biopsy: COLONIC MUCOSA WITH NO PATHOLOGIC DIAGNOSIS CONTINUED ON NEXT PAGE RUN DATE: 08/26/20 [facility] - LAB PAGE 2 RUN TIME: 1457 Specimen Inquiry RUN USER: INTERFACE SPEC #: [facility]:[id number] PATIENT: PEPE MACK #[id number] (Continued) FINAL DIAGNOSIS (Continued) C. Colon, left, biopsy: COLONIC MUCOSA WITH NO PATHOLOGIC DIAGNOSIS GROSS DESCRIPTION A. Right colon biopsy. Received in formalin are two vazquez tissue fragments, 0.2 cm each, all as A. B. Mid colon biopsy. Received in formalin are two vazquez tissue fragments, 0.2 cm each, all as B. C. Left colon biopsy. Received in formalin are two vazquez tissue fragments, 0.2 cm each, all as C. ba/nr Grossing performed at [facility] Pathology, [address] [place] [address], [address], [place] [address]. Heat Reader: Leeroy Jimenes M.D. MICROSCOPIC DESCRIPTION A. Right colon biopsy. Sections demonstrate colonic mucosa with glands demonstrating no evidence of increased acute inflammation or chronic architectural distortion. No dysplasia or malignancy is identified. B. Mid colon biopsy. Sections demonstrate colonic mucosa with no evidence of increased acute inflammation or chronic architectural distortion. No dysplasia or malignancy is identified. C. Left colon biopsy. Sections demonstrate colonic mucosa with glands demonstrating no increased acute inflammation or chronic architectural distortion. No dysplasia or malignancy is identified. Signed SIGNATURE ON FILE Carlos Mendoza 08/26/20 1457 END OF REPORT GLUCOSE BEDSIDE [id number] 08:29:00 Test Item Value Reference Range Interpretation Comments GLUCOSE BEDSIDE TESTING (test code 156 mg/dL 70-110 H = GLUBED) BASIC METABOLIC [id number] 12:40:00 Test Item Value Reference Range Interpretation [...] CA) 9.0 MG/DL 8.5-10.1 N BASIC METABOLIC [id number] 12:37:00 Test Item Value Reference Range Interpretation [...] 9.0 MG/DL 8.5-10.1 N COVID 19 INHOUSE [id number] 12:37:00 Test Item Value Reference Range Interpretation Comments COVID 19 INHOUSE AG NEGATIVE Negative Per manu facturer, (test code = negative result s should [id number]) be treated aspr esumptive and, if inconsi [...] symptoms co nsistent with COVID-19. CBC W/AUTO [id number] 12:23:00 Test Item Value Reference Range Interpretation [...] (test code NO DIFF/SCN CRITERIA = MDIFF) [id number] 15:34:00 RUN DATE: 12/13/19 [facility] PAGE 1 RUN TIME: 1535 Specimen Inquiry RUN USER: INTERFACE PATIENT: PEPE MACK LOC: GLADYS U #: [id number] AGE/SX: 54/F ROOM: RE12/11/[facility] DR: Zacarias Kaur MD : 69 BED: DIS: STATUS[place] [facility] TLOC: SPEC #: [id number] RECD: 12/11/19 STATUS: KRISTIN REQ #: [id number] AN: 12/11/[address] [facility] [address]: Zacarias Kaur MD ENTERED: 12/11/19 SP TYPE: SURG OTHR DR: Trent Camp DO ORDERED: SURG PATH LVL 01/31 COPIES TO: Trent Camp DO [address] [place] [address] Zacarias Kaur MD [address] [place] [address] HISTOLOGY: TISSUE ID BLK PCS DIANE LEV PROCEDURE DISPOSITION ____ ___ ___ ___ GASTRIC ANTRUM A 1 3 GASTRIC ANTRUM B 1 3 PROCEDURES: SURG PATH LVL 4 (12/11/19) TISSUES: A. GASTRIC ANTRUM - GASTRIC BIOPSY B. GASTRIC ANTRUM - DISTAL GASTRIC BIOPSY CLINICAL HISTORY EPIGASTRIC PAIN -R10.13; NAUSEA -R11.0; VOMITING -R11.10 CPT CODES CPT CODE(S): 52732E2 , , , , , , FINAL DIAGNOSIS A. Stomach, biopsy: MILD CHRONIC GASTRITIS NEGATIVE FORINTESTINAL METAPLASIA, DYSPLASIA, OR MALIGNANCY NEGATIVE FOR HELICOBACTER PYLORI ORGANISMS B. Stomach, distal, biopsy: MILD CHRONIC GASTRITIS NEGATIVE FOR INTESTINAL METAPLASIA, DYSPLASIA, OR MALIGNANCY CONTINUED ON NEXT PAGE RUN DATE: 12/13/19 [facility] PAGE 2 RUN TIME: 1535 Specimen Inquiry RUN USER: INTERFACE SPEC #: [id number] PATIENT: FREDERICKPEPE #[id number] (Continued)---- -------- FINAL DIAGNOSIS (Continued) NEGATIVE FOR HELICOBACTER PYLORI ORGANISMS GROSS DESCRIPTION A. Gastric biopsy. Received in formalin is a vazquez tissue fragment, 0.5 cm, all as A.B. Distal gastric biopsy. Received in formalin is a vazquez tissue fragment, 0.3 cm, all as B. shivam/nr Grossing performed at [facility] Pathology, [address] [facility], [address], [place], [place]. Heat Reader: Leeroy Jimenes M.D. MICROSCOPIC DESCRIPTION A. Gastric [...] 12/13/19 1534 END OF REPORT GLUCOSE BEDSIDE [id number] 06:17:00 Test Item Value Reference Range Interpretation Comments GLUCOSE BEDSIDE TESTING (test code 170 mg/dL 70-110 H = GLUBED) UR HCG [id number] 11:12:00 Test Item Value Reference Range Interpretation Comments UR HCG QUAL (test code = HCGQLU) NEGATIVE NEGATIVE
[2022-01-11] MEDS ORDERED: ONDANSETRON 4 MG/2 ML VIAL ONE (15:58)
[2022-01-11] MEDS ORDERED: HYDROMORPHONE HCL 0.5 MG/0.5 ML INJ ONE (15:58)
[2022-01-11 16:35] LABS: Absolute Lymphocytes (CBC) 2.3 K/uL (0.7-4.9); Hematocrit 42.5 % (36.0-45.0); Lymphocytes % 32.6 % (15.3-44.8)
[2022-01-11 17:14] LABS: ALT/SGPT 79 U/L (12-78); AST/SGOT 48 U/L (15-37); Albumin 3.3 g/dL (3.4-5.0); Alkaline Phosphatase 123 U/L (45-117); BUN Blood Urea Nitrogen 10 mg/dL (7-18); Bicarbonate 33 mmol/L (21-32); Bilirubin Direct < 0.1 mg/dL (0-0.2); Bilirubin Total 0.3 mg/dL (0.2-1.0); Glucose Level 226 mg/dL (74-106); Lipase 94 U/L (73-393); Potassium 4.1 mmol/L (3.5-5.1); Protein, Total 7.1 g/dL (6.4-8.2); Sodium Level 138 mmol/L (136-145)
--- NOTE | 2022-01-11 17:51 | RAD REPORT ---
EXAM DESCRIPTION: CTAbdomen Pelvis W Contrast - 01/11/2022 5:35 pm CLINICAL HISTORY: ABD PAIN COMPARISON: Abdomen Pelvis W Contrast dated 10/01/2021; Abdomen Pelvis W Contrast dated 06/18/2017 ; CT ABD PELVIS W CONTRAST dated 03/18/2015; CT ABD PELVIS W CONTRAST dated 05/01/2014 TECHNIQUE: CT of the abdomen and pelvis was performed. All CT scans are performed using dose optimization technique as appropriate and may include automated exposure control or mA/KV adjustment according to patient size. FINDINGS: Lower chest: No acute abnormality. Liver: Hepatic steatosis. Biliary: Cholecystectomy. Stomach: Partial gastrectomy. Duodenum: No significant focal abnormality. Pancreas: No significant abnormality. Spleen: No significant abnormality. Adrenal: No suspicious lesions. Kidney/ureter: No hydronephrosis. No renal calculi. Retroperitoneum: No retroperitoneal adenopathy. Vascular: No aneurysm. Bowel: No significant focal abnormality. Appendectomy. Peritoneum: No ascites or free air. Bladder: Grossly unremarkable. Reproductive: No adnexal masses. Bones: No acute fracture. Other: n/a IMPRESSION: No acute intra-abdominal or pelvic finding. Appendectomy.
--- NOTE | 2022-01-11 19:17 | ER ---
Nurse's Notes [facility] Name: Maria De Jesus Acosta Age: 56 yrs Sex: Female : 1965 Arrival Date: 01/11/2022 Time: 14:25 Bed 24 Private MD: Diagnosis: Other abdominal pain Presentation: 01/11 14:33 Chief complaint: Patient states: Had a colonscopy on 01/09/2022 and had 2 polyps ww removed. Patient is having right sided pain. She states pain gets worse when she eats or drinks something. Coronavirus screen: Vaccine status: Patient reports receiving the 2nd dose of the covid vaccine. Client denies travel out of the [place] in the last 14 days. Ebola Screen: Patient denies travel to an Ebola-affected area in the 21 days before illness onset. Initial Sepsis Screen: Does the patient meet any 2 criteria? No. Patient's initial sepsis screen is negative. Does the patient have a suspected source of infection? No. Patient's initial sepsis screen is negative. Risk Assessment: Do you want to hurt yourself or someone else? Patient reports no desire to harm self or others. Onset of symptoms is unknown. 14:33 Method Of Arrival: Wheelchair ww 14:33 Acuity: EMERALD 3 ww Triage Assessment: 14:36 General: Appears uncomfortable, Behavior is calm, cooperative. Pain: Complains of pain ww in right upper quadrant and right lower quadrant. Neuro: Level of Consciousness is awake, alert, obeys commands, Oriented to person, place, time, situation, Speech is normal. Respiratory: Airway is patent Respiratory effort is even, unlabored, Respiratory pattern is regular, symmetrical. GI: Reports lower abdominal pain, upper abdominal pain, nausea. : No signs and/or symptoms were reported regarding the genitourinary system. 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 - Social history:: Smoking status: Patient denies any tobacco usage or history of. Screenin:04 Abuse screen: Denies threats or abuse. Nutritional screening: No deficits noted. lr4 Tuberculosis screening: No symptoms or risk factors identified. Fall Risk None identified. Assessment: 15:02 General: Appears in no apparent distress. comfortable, Behavior is calm, cooperative. lr4 Pain: Complains of pain in abdomen and right lower quadrant and right upper quadrant Pain currently is 10 out of 10 on a pain scale. Neuro: No deficits noted. Cardiovascular: No deficits noted. Respiratory: No deficits noted. GI: Abdomen is round distended, obese, Bowel sounds present X 4 quads. Abdomen is tender to palpation Reports lower abdominal pain, upper abdominal pain, cramping. Vital Signs: 14:33 BP 132 / 83; Pulse 75; Resp 18; Temp 98.2; Pulse Ox 94% ; Weight 151.05 kg; Height 5 ww ft. 3 in. (160.02 cm); Pain 8/10; 19:34 BP 130 / 79; Pulse 79; Resp 20; Pulse Ox 95% ; lr4 14:33 Body Mass Index 58.99 (151.05 kg, 160.02 cm) ww ED Course: 14:25 Patient arrived in ED. ds1 14:36 Triage completed. ww 14:36 Arm band placed on right wrist. ww 15:02 Pamela Sheriff, JCARLOS is Primary Nurse. lr4 15:04 No provider procedures requiring assistance completed. lr4 15:05 Bed in low position. Call light in reach. Side rails up X 1. lr4 15:07 Daniel Wyman PA is PHCP. jmm 15:07 Dominguez Voss MD is Attending Physician. jmm 16:28 Inserted saline lock: 20 gauge in right antecubital area, using aseptic technique. lr4 17:35 CT Abd/Pelvis - IV Contrast Only In Process Unspecified. EDMS 19:34 IV discontinued, intact, bleeding controlled, No redness/swelling at site. Pressure lr4 dressing applied. Administered Medications: 16:30 Drug: Zofran (Ondansetron) 4 mg Route: IVP; Site: right antecubital; lr4 19:33 Follow up: Response: Nausea is decreased lr4 16:30 Drug: Dilaudid (HYDROmorphone) 0.5 mg Route: IVP; Site: right antecubital; lr4 17:30 Follow up: Response: Pain is decreased lr4 Outcome: 19:17 Discharge ordered by MD. styles 19:34 Discharged to home ambulatory. lr4 19:34 Condition: stable 19:34 Discharge instructions given to patient. 19:34 Patient left the ED. lr4 Signatures: Dispatcher [employer] EDMS Daniel Wyman PA PA jmm Sanford, Demi ds1 Bella Crooks RN RN ww Pamela Sheriff RN RN lr4
--- NOTE | 2022-01-11 19:18 | EDPHYS ---
Physician Documentation [facility] Name: Maria De Jesus Acosta Age: 56 yrs Sex: Female : 1965 Arrival Date: 01/11/2022 Time: 14:25 Bed 24 Private MD: MAYNOR Physician Dominguez Voss HPI: 01/11 15:08 This 56 yrs old Female presents to ER via Wheelchair with complaints of Post jmm Surgical Pain. 15:08 The patient presents with abdominal pain. Onset: The symptoms/episode began/occurred jmm gradually. The symptoms are described as achy. Is a 56-year-old female status post colonoscopy with history of CHF, asthma, diabetes mellitus, hypertension, COPD the presents emerged department with complaints of lower abdominal pain which radiates to the back. Patient denies bloody stools but states she has had increased pain since the procedure. Denies vomiting or diarrhea. TUBE WINDER: 14:36 LMP N/A - Hysterectomy ww Historical: - Allergies: 14:36 Doxycycline; ww 14:36 kiwi; ww 14:36 metoclopramide HCl; ww 14:36 orange juice; ww 14:36 Reglan; ww - PMHx: 14:36 Asthma; CHF; COPD; Crohn's; Diabetes - NIDDM; Hypertension; ww - Immunization history:: Adult Immunizations up to date. - Social history:: Smoking status: Patient denies any tobacco usage or history of. ROS: 15:08 Constitutional: Negative for fever, chills, and weight loss, Cardiovascular: Negative jmm for chest pain, palpitations, and edema, Respiratory: Negative for shortness of breath, cough, wheezing, and pleuritic chest pain. 15:08 Abdomen/GI: Positive for abdominal pain. 15:08 All other systems are negative. Exam: 15:08 Constitutional: This is a well developed, well nourished patient who is awake, alert, jmm and in no acute distress. Head/Face: atraumatic. Eyes: EOMI, no conjunctival erythema appreciated ENT: Moist Mucus Membranes Neck: Trachea midline, Supple Chest/axilla: Normal chest wall appearance and motion. Cardiovascular: Regular rate and rhythm. No edema appreciated Respiratory: Normal respirations, no respiratory distress appreciated 15:08 Back: Normal ROM Skin: General appearance color normal MS/ Extremity: Moves all extremities, no obvious deformities appreciated, no edema noted to the lower extremities Neuro: Awake and alert Psych: Behavior is normal, Mood is normal, Patient is cooperative and pleasant 15:08 Abdomen/GI: Inspection: obese Bowel sounds: normal, Palpation: soft, mild abdominal tenderness, in the suprapubic area and right lower quadrant. Vital Signs: 14:33 BP 132 / 83; Pulse 75; Resp 18; Temp 98.2; Pulse Ox 94% ; Weight 151.05 kg; Height 5 ww ft. 3 in. (160.02 cm); Pain 8/10; 19:34 BP 130 / 79; Pulse 79; Resp 20; Pulse Ox 95% ; lr4 14:33 Body Mass Index 58.99 (151.05 kg, 160.02 cm) ww MDM: 15:08 Patient medically screened. [facility] 19:16 Data reviewed: vital signs, nurses notes. Counseling: I had a detailed discussion with jensen the patient and/or guardian regarding: the historical points, exam findings, and any diagnostic results supporting the discharge/admit diagnosis, lab results, radiology results, the need for outpatient follow up, to return to the emergency department if symptoms worsen or persist or if there are any questions or concerns that arise at home. ED course: Patient states she feels much better. CT was negative for any acute intra-abdominal process. Patient advised follow GI for further evaluation otherwise given strict return precautions. Patient understood agrees plan of care.. 0313 15:16 Order name: Basic Metabolic Panel; Complete Time: 17:15 [facility] 01/11 15:16 Order name: CBC with Diff; Complete Time: 16:44 [facility] 01/11 15:16 Order name: Hepatic Function; Complete Time: 17:15 [facility] 01/11 15:16 Order name: Lipase; Complete Time: 17:15 [facility] 01/11 15:16 Order name: CT Abd/Pelvis - IV Contrast Only; Complete Time: 17:53 [facility] 01/11 15:16 Order name: IV Saline Lock; Complete Time: 16:31 [facility] 01/11 15:16 Order name: Labs collected and sent; Complete Time: 16:31 [facility] Administered Medications: 16:30 Drug: Zofran (Ondansetron) 4 mg Route: IVP; Site: right antecubital; lr4 19:33 Follow up: Response: Nausea is decreased lr4 16:30 Drug: Dilaudid (HYDROmorphone) 0.5 mg Route: IVP; Site: right antecubital; lr4 17:30 Follow up: Response: Pain is decreased lr4 Disposition: 19:18 Co-signature as Attending Physician, Dominguez Voss MD I agree with the assessment and ebenezer plan of care. Disposition Summary: 01/11/22 19:17 Discharge Ordered Location: Home [facility] Condition: Stable [facility] Diagnosis - Other abdominal pain [facility] Followup: [facility] - With: Private Physician - When: 2 - 3 days - Reason: Recheck today's complaints, Continuance of care, Re-evaluation by your physician Discharge Instructions: - Discharge Summary Sheet [facility] - Abdominal Pain, Adult [facility] Forms: - Medication Reconciliation Form [facility] - Thank You Letter [facility] - Antibiotic Education [facility] - Prescription Opioid Use [facility] Prescriptions: - dicyclomine 20 mg Oral Tablet - take 1 tablet by ORAL route 3 times per day; 30 tablet; Refills: 0, Product [facility] Selection Permitted Signatures: Dispatcher [employer] Dominguez Henry MD MD cha Mickail, Joel, PA PA Bella Kimball, RN RN Pamela Cooley RN RN lr4
[2022-01-11 20:28] VITALS: TEMP 98.2
[2022-01-11 20:29] VITALS: BP 130/79; O2SAT 95
== END 2022-01-11 19:34 | disposition home or self-care (01) ==
LOC: ER 14:24
DX: R10.30 Lower abdominal pain, unspecified (principal); Z98.890 Other specified postprocedural states; I10 Essential (primary) hypertension; Z88.1 Allergy status to other antibiotic agents; Z88.8 Allergy status to other drugs, medicaments and biological substances; Z91.018 Allergy to other foods
CPT/HCPCS: 85025; 80048; 36415; 80076; 83690; 74177; 96375; 96374; 99283; Q9967; J1170; J2405

== ENCOUNTER 2022-01-14 07:55 | Emergency (ER) | payer OTHER ==
--- OUTSIDE RECORDS SUMMARY | 2022-01-14 08:01 | XMS REPORT | Continuity of Care Document ---
:1965 Author Organization [facility] t Address [address] [place] [address] Care Team Providers Name Role Phone Vickie CAMP Primary Care Physician Unavailable Rosalio Harper Attending Clinician Unavailable Julissa Kaur Attending Clinician Unavailable ALVARO WISE Attending Clinician Unavailable Galilea JOY S Attending Clinician Annette CALERO Attending Clinician Unavailable ALVARO WISE Attending Clinician Unavailable Agjoana_Julissa Attending Clinician Unavailable Alvjoey_R Attending Clinician Unavailable Jaziel GRIFFIN Attending Clinician Doctor Unassigned, Name Attending Clinician Unavailable Vickie Camp Admitting Clinician Unavailable ALVARO WISE Admitting Clinician Unavailable Agjoana_Julissa Admitting Clinician Unavailable Alvarez_R Admitting Clinician Unavailable Payers Payer Name Policy Type Policy Number Effective Date Expiration Date Annette gonzalez MEDICARE A B [id number] 2010 00:00:00 MEDICAID OF [place] [id number] 2021 00:00:00 MEDICARE PART A [id number] \\T\\ B - MEDICARE [facility]-MEDICAID - [id number] [place] [id number] 2010 [employer] 00:00:00 [place] [id number] [place] Problems Condition Condition Condition Status Onset [...] syndrome) syndrome[place] Allergies, Adverse Reactions, Alerts Allergy Allergy Status Severity Reaction(s) Onset Inactive Treating Comm ents Source Name Type Date Date Clinician Doxycycl Propensi Active [facility] ine ty to 11-06 [place] adverse 00:00: of reaction 00 Medicin s to e drug Metoclop Propensi Active [facility] ramide ty to 11-06 [place] adverse 00:00: of reaction 00 Medicin s to e drug doxycycl DA [facility] 12-07 [place] 00:00: d 00 [facility] metoclop DA Active U [facility] ramide 12-07 [place] 00:00: d 00 [facility] doxycycl DA Active U VOMITING [facility] ine 12-07 [place] 00:00: d 00 [facility] metoclop DA Active U UNKNOWN [facility] ramide 12-07 [place] 00:00: d 00 [facility] [place] Propensi Active Nausea Univers ty to and/or 7 ity of adverse Vomiting 00:00: [place] reaction 00 Medical s Branch ORANGE DRUG Active N/V Univers INGREDI 711 ity of 00:00: [place] [facility] [place] ORANGE Allergy Active Med N\\T\\V [facility] Medical [facility] Doxycycl Propensi Active Nausea Univer s [...] INE INGREDI 3-16 ity of 00:00: [place] [facility] [place] METOCLOP DRUG Active Unknown-Cmnt Oscar CUMMINGS INGREDI 3-16 ity of HCL 00:00: [place] [facility] DOXYCYCL Allergy Active High N\\T\\V [facility] - 00:00: Medical 00 [place] METOCLOP Allergy Active High Other [address] [facility] RAMIDE 3-[facility] - 00[facility]00: Medical 00 Center Doxycycl Allergy Active [place] ine to Family substanc Practic e e NO KNOWN Allergy Active [facility] Social History Social Habit Start Date Stop Date Quantity Comments Source History of tobacco Cigarette Smoker University of use [place] [facility] Exposure to Not sure University of SARS-CoV-2 (event) [place] [facility] History [facility] University o f Transport Non-Med [facility] edical Branch Tobacco use and 2021-11-06 2021-11-06 Smokeless [facility] Co llege of exposure 00:00:00 00:00:00 tobacco non-user Medicine Alcohol intake 2021-11-06 2021-11-06 Ex-drinker [facility] Col lege of 00:00:00 00:00:00 (finding) Medicine History SDID Social 2019-08-25 2019-08-25 3 Unive rsity of Connections Phone 00:00:00 00:00:00 [facility] edical Branch History SDOH Social 2019-08-25 2019-08-25 1 Unive rsity of Connections Get 00:00:00 00:00:00 [place] Med ical Together Branch History SDOH Social 2019-08-25 2019-08-25 1 Unive rsity of Connections Druze 00:00:00 00:00:00 [place] [facility] History SDOH Social 2019-08-25 2019-08-25 2 Unive rsity of Connections 00:00:00 00:00:00 [place] [facility] Membership Branch History SDOH Social 2019-08-25 2019-08-25 1 Unive rsity of Connections 00:00:00 00:00:00 [place] [facility] Meetings Branch History SDOH Social 2019-08-25 2019-08-25 5 Unive rsity of Connections Living 00:00:00 00:00:00 [place] [facility] History SDOH 2019-08-25 2019-08-25 0 University o f Physical Activity 00:00:00 00:00:00 [facility] edical DPW Branch History SDOH 2019-08-25 2019-08-25 0 University o f Physical Activity 00:00:00 00:00:00 [facility] edical MPS Branch History SDID Stress 2019-08-25 2019-08-25 3 Unive rsity of [...] 1 Univers ity of Worry 00:00:00 00:00:00 [place] [facility] History SDOH Food 2019-08-25 2019-08-25 1 Univers ity of Scarcity 00:00:00 00:00:00 [place] [facility] History SDOH 2019-08-25 2019-08-25 2 University o f Transport Med 00:00:00 00:00:00 [place] Medic al Branch Tobacco Comment 2019-08-25 2019-08-25 Started at 25- Unive rsity of 00:00:00 00:00:00 end at 42 [facility] [place] [facility] Branch Cigarettes smoked 2018-05-10 2018-05-10 Univers ity of current (pack per 00:00:00 00:00:00 ) - Reported Branch Sex [birth year] At [birth year] [facility] Co llege of 00:00:00 00:00:00 Medicine Smoking Status Start Date Stop Date Source Never smoked tobacco [facility] An ege of Medicine Former smoker 2018-05-10 00:00:00 2018-05-10 00:00:00 Universi ty of [facility] [place] [facility] Branch Medications Ordered Filled Start Stop Current Ordering Indication Dosage Frequency Signature Comments Components Source Medication Medication Date Date Medication? Clinician (SIG) Name Name METOPROLOL Yes TAKE 1 Unive rs TARTRATE 2-14 TABLET BY ity of 100 mg 00:00: MOUTH [place] tablet 00 TWICE Medical DAILY Branch HYDRALAZINE 2021-0 Yes [id number] TAKE 1 Univers 100 mg 2-14 TABLET BY ity of tablet 00:00: MOUTH [place] 00 THREE Medical TIMES Branch DAILY METOPROLOL Yes TAKE 1 Unive rs TARTRATE 2-14 TABLET BY ity of 100 mg 00:00: MOUTH [place] tablet 00 TWICE Medical DAILY Branch HYDRALAZINE 0 Yes [id number] TAKE 1 Univers 100 mg 2-14 TABLET [...] for Pain. Indication s: chronic pain HYDROCHLORO 0 Yes [id number] 12.5mg TAKE 1 Univers THIAZIDE 1-19 CAPSULE BY ity o f 12.5 mg 00:00: MOUTH [place] capsule 00 DAILY Medical Branch LISINOPRIL 0 Yes [id number] TAKE 1/2 Univers 40 mg 1-19 TABLET BY ity of tablet 00:00: MOUTH [place] 00 TWICE Medical DAILY Branch HYDROCHLORO 2021-0 Yes [id number] 12.5mg TAKE 1 Univers THIAZIDE 1-19 CAPSULE BY ity o f 12.5 mg 00:00: MOUTH [place] capsule 00 DAILY Medical Branch LISINOPRIL 0 Yes [id number] TAKE 1/2 Univers 40 mg 1-19 TABLET BY ity of tablet 00:00: MOUTH [place] 00 TWICE Medical DAILY Branch Prucaloprid 0 Yes [id number] 2mg Take 2 mg [facility] e Succinate 11-06 by mouth An ege 2 MG TABS 00:00: daily. of 00 Medicin e PEG-KCl-NaC Yes [id number] [MOVI B aylor l-NaSulf-Na 11-06 PREP] Take [...] NEEDED FOR CHEST PAIN. DICLOFENAC 2020-11 Yes [id number] APPLY TO Univers SODIUM 1 % 2-02 THE ity of gel 00:00: AFFECTED [place] 00 AREA FOUR Medical TIMES Branch DAILY DICLOFENAC 2020-11 Yes [id number] APPLY TO Univers SODIUM 1 % 2-02 THE ity of gel 00:00: AFFECTED [place] 00 AREA FOUR Medical TIMES Branch DAILY metFORMIN 2020-11 Yes [id number] 1000mg Take 1 Univers 1,000 mg 1-18 tablet by ity of tablet 00:00: mouth 2 00 (two) Medical times Branch daily with meals. metFORMIN 2020-11 Yes [id number] 1000mg Take 1 Univers 1,000 mg 1-18 tablet by ity of tablet 00:00: mouth 2 00 (two) Medical times Branch daily with meals. colchicine 2020-11 Yes [id number] .6mg Take 1 U nivers 0.6 mg 0-07 tablet by ity of tablet 00:00: mouth [place] 00 daily. Medical Branch gabapentin 2020-11 Yes [id number] 600mg Take 1 Univers 600 mg 0-07 tablet by ity of tablet 00:00: mouth 3 00 (three) Medical times Branch daily. colchicine 2020-11 Yes [id number] .6mg Take 1 U nivers 0.6 mg 0-07 tablet by ity of tablet 00:00: mouth [place] 00 daily. Medical Branch gabapentin 2020-11 Yes [id number] 600mg Take 1 Univers 600 mg 0-07 tablet by ity of tablet 00:00: mouth 3 [place] 00 (three) Medical times Branch daily. TRUEPLUS Yes USE TWICE Univ ers INSULIN 1 9-14 DAILY ity of mL 30 gauge 00:00: [place] x 5/16 Syrg 00 Medical Branch TRUEPLUS Yes USE TWICE Univ ers INSULIN 1 9-14 DAILY ity of mL 30 gauge 00:00: [place] x 5/16 Syrg 00 [facility] insulin NPH 0 Yes [id number] ADMINISTER Univers and regular 8-25 70 UNITS ity of human 70-30 00:00: [place] (HUMULIN 00 SKIN EVERY Medic al 70/30 U-100 MORNING Branc h INSULIN) THEN 100 unit/mL ADMINISTER (70-30) 60 UNITS injection UNDER THE SKIN EVERY EVENING insulin NPH 0 Yes [id number] ADMINISTER Univers and regular 8-25 70 UNITS ity of human 70-30 00:00: [place] (HUMULIN 00 SKIN EVERY Medic al 70/30 U-100 MORNING Branc h INSULIN) THEN 100 unit/mL ADMINISTER (70-30) 60 UNITS injection UNDER THE SKIN EVERY EVENING mirtazapine 0 Yes 15mg Take 15 mg Univers 15 mg 7-14 by mouth ity of tablet 09:38: at [place] [address] bedtime. [facility] mesalamine 0 Yes 1.5g Take 1.5 g U nivers 0.375 gram 7-14 by mouth ity o f 24 hr 09:38: daily. [address] mirtazapine 0 Yes 15mg Take 15 mg Univers 15 mg 7-14 by mouth ity of tablet 09:38: at [place] [address] bedtime. [facility] mesalamine 0 Yes 1.5g Take 1.5 g U nivers 0.375 gram 7-14 by mouth ity o f 24 hr 09:38: daily. [address] predniSONE 0 Yes 10mg Take 10 mg U nivers 10 mg 6-22 by mouth ity of tablet 00:00: daily. [address] predniSONE 0 Yes 10mg Take 10 mg U nivers 10 mg 6-22 by mouth ity of tablet 00:00: daily. [address] spironolact 0 Yes 25mg Take 25 mg Univers one 25 mg 6-08 by mouth ity of tablet 00:00: daily. [address] spironolact 0 Yes 25mg Take 25 mg Univers one 25 mg 6-08 by mouth ity of tablet 00:00: daily. [address] hydroCHLORO 0 Yes Essential 12.5mg Take [...] ear daily. mL-% otic susp neomycin-po Yes [id number] 3[drp] Place 3 Univers lymyxin-hyd 4-14 Drops in ity of rocortisone 00:00: left ear 4 [place] 3.5-10,000- 00 (four) Medica l 1 times Branch mg/mL-unit/ daily. mL-% otic susp neomycin-po Yes [id number] 3[drp] Place 3 Univers lymyxin-hyd 4-14 Drops in ity of rocortisone 00:00: left ear 4 [place] 3.5-,000- 00 (four) Medica l 1 times [...] " Syrg hyperglycem E11.65 ia insulin Yes [id number] 1{each} 1 Each 2 Univers U-500 3-08 (two) ity of syringe-nee 00:00: times [place] dle 1/2 mL 00 daily with Med ical 31 gauge x meals. Branch " Syrg E11.65 insulin Yes [id number] 1{each} 1 Each 2 Univers U-500 3-08 (two) ity of syringe-nee 00:00: times [place] dle 1/2 mL 00 daily with Med ical 31 gauge x meals. Branch " Syrg E11.65 metoprolol Yes 100mg Take 1 [...] of 00:00: [place] 00 Medical Branch MOTEGRITY 2019- Yes TK 1 T PO Uni vers tablet 1-12 D ity of 00:00: 00 Medical Branch MOTEGRITY 2019-11 Yes TK 1 [...] of 00:00: [place] 00 Medical Branch ondansetron 2019-11 Yes as needed. Univers 4 mg tablet 1-04 ity of 00:00: Medical Branch ondansetron 2019- Yes as needed. Univers 4 mg tablet 1-04 ity of 00:00: [place] [facility] diclofenac 2019- Yes Morbid 75mg Take 1 Uni vers 75 mg EC 0-08 obesity tablet by ity of tablet 00:00: with body mouth 2 [place] as 00 mass index (two) Medical of 50 or times Branch higher daily with meals. diclofenac 2019- Yes [id number] 75mg Take 1 Univers 75 mg EC 0-08 tablet by ity of tablet 00:00: mouth 2 [place] (two) Medical times Branch daily with meals. diclofenac 2019- Yes [id number] 75mg Take 1 Univers 75 mg EC 0-08 tablet by ity of tablet 00:00: mouth 2 [place] (two) Medical times Branch daily with meals. COLCHICINE 2020-0 Yes Gout, .6mg TAKE 1 Univ ers 0.6 mg 8-28 unspecified TABLET BY i ty of tablet 00:00: cause, MOUTH unspecified DAILY Medical chronicity, Branch unspecified site hydrALAZINE 2020-0 Yes Essential TAKE 1 Univers 100 mg 8-12 hypertensio TABLET BY i ty of tablet 00:00: n MOUTH THREE Medical TIMES Branch DAILY CLONIDINE 2020-0 Yes Essential TAKE 1 U nivers 0.2 mg 8-06 hypertensio TABLET BY i ty of tablet 00:00: n MOUTH THREE Medical TIMES Branch DAILY CLONIDINE 2020-0 Yes [id number] TAKE 1 Un ally 0.2 mg 8-06 TABLET BY ity of tablet 00:00: MOUTH [place] THREE Medical TIMES Branch DAILY CLONIDINE 2020-0 Yes [id number] TAKE 1 Un ally 0.2 mg 8-06 TABLET BY ity of tablet 00:00: MOUTH THREE Medical TIMES Branch DAILY mesalamine 2020-0 Yes 1.5g Take 1.5 g U nivers 0.375 gram 7-13 by mouth ity o f 24 hr 19:23: daily. [place] capsule 21 Medical Branch sulfamethox 2020-0 Yes TK 1 T PO U nivers azole-trime 7-08 BID ity of thoprim 00:00: [place] 800-160 mg 00 Medical per tablet Branch sulfamethox 2020-0 Yes TK 1 T PO U nivers azole-trime 7-08 BID ity of thoprim 00:00: [place] 800-160 mg 00 Medical per tablet Branch sulfamethox Yes TK 1 T PO U nivers azole-trime 7-08 BID ity of thoprim 00:00: [place] 800-160 mg 00 Medical per tablet Branch AMITIZA 24 Yes TK 1 C PO Un ally mcg capsule - BID ity of 00:00: [place] [facility] AMITIZA 24 Yes TK 1 C PO Un ally mcg capsule - BID ity of 00:00: [place] [facility] AMITIZA 24 Yes TK 1 C PO Un ally mcg capsule -06 BID ity of 00:00: [place] [facility] XIFAXAN 550 Yes Univer s mg tablet 5-14 ity of 00:00: [place] [facility] XIFAXAN 550 Yes as needed. Univers mg tablet 5-14 ity of 00:00: [place] [facility] XIFAXAN 550 Yes as needed. Univers mg tablet 5-14 ity of 00:00: [place] [facility] Branch insulin Yes Uncontrolle Take 50 Univers regular 4-21 d type 2 units with it y of human 500 00:00: diabetes breakfast [place] unit/mL 00 mellitus lunch and Med ical injection with dinner Branch hyperglycem E11.65 ia VICTOZA 2019- Yes INJECT 1.8 Univ ers 3-PATRICK 0.6 4-06 MG UNDER ity of mg/0.1 mL 00:00: THE SKIN [place] (18 mg/3 00 DAILY Medical mL) Branch injection VICTOZA 2019-0 Yes INJECT 1.8 Univ ers 3-PATRICK 0.6 4-06 MG UNDER ity of mg/0.1 mL 00:00: THE SKIN [place] (18 mg/3 00 DAILY Medical mL) Branch injection VICTOZA 0 Yes INJECT 1.8 Univ ers 3-PATRICK 0.6 [...] by ity of tablet 00:00: mouth 2 [place] 00 (two) Medical times Branch daily. pantoprazol 2018-11 Yes 40mg Take 1 Univ ers e 40 mg EC 1-21 tablet by ity of tablet 00:00: mouth 2 [place] 00 (two) Medical times Branch daily. pantoprazol 2018-11 Yes 40mg Take 1 Univ ers e 40 mg EC 1-21 tablet by ity of tablet 00:00: mouth 2 [place] 00 (two) Medical times Branch daily. allopurinol [...] Medical moncho type evening. Branch atorvastati Yes [id number] 40mg Take 1 Univers n 40 mg 5-28 tablet by ity of tablet 00:00: mouth [place] 00 every Medical evening. Branch atorvastati Yes [id number] 40mg Take 1 Univers n 40 mg [...] 00 daily. Medical Branch Cholecalcif 2017-11 Yes [id number] Take 1 Un ally alayna, 0-01 capsule by ity of Vitamin D3, 00:00: mouth [place] 50,000 unit 00 weekly. Medic al capsule Branch Cholecalcif 2017-11 Yes [id number] Take 1 Un ally alayna, 0-01 capsule by ity of Vitamin D3, 00:00: mouth [place] 50,000 unit 00 weekly. Medic al capsule Branch Cholecalcif 2017-11 Yes [id number] Take 1 Un ally alayna, 0-01 capsule [...] needed for Wheezing or Shortness of Breath. hydrochloro hydrochloro No hydrochlor [place] thiazide thiazide othiazide Fa davida 12.5 mg 12.5 mg 12.5 mg Practi c capsule capsule capsule e TAKE 1 TAKE 1 TAKE 1 CAPSULE BY CAPSULE BY CAPSULE BY MOUTH DAILY MOUTH DAILY MOUTH DAILY hydrocodone hydrocodone No hydrocodon [place] 7.5 7.5 e 7.5 Family mg-acetamin mg-acetamin [...] TWICE DAILY WITH MEALS ipratropium ipratropium No ipratropiu [facility] bromide bromide m bromide Fami ly 0.02 % 0.02 % 0.02 % Practic solution solution solution e for for for inhalation inhalation inhalation lisinopril lisinopril No lisinopril [facility] 40 mg 40 mg 40 mg Family tablet TAKE tablet TAKE tablet Practic 1/2 TABLET 1/2 TABLET TAKE 1/2 e BY MOUTH BY MOUTH TABLET BY TWICE DAILY TWICE DAILY MOUTH TWICE DAILY mesalamine mesalamine No mesalamine [facility] ER 0.375 ER 0.375 ER 0.375 Fam ramses gram gram gram Practic capsule,ext capsule,ext capsule,ex e ended ended tended release 24 release 24 release 24 hr TAKE 4 hr TAKE 4 hr TAKE 4 CAPSULES BY CAPSULES BY CAPSULES MOUTH DAILY MOUTH DAILY BY MOUTH DAILY metformin metformin No metformin [facility] 1,000 mg 1,000 mg 1,000 mg Fam ramses tablet TAKE tablet TAKE tablet Practic 1 TABLET BY 1 TABLET BY TAKE 1 e MOUTH TWICE MOUTH TWICE TABLET BY DAILY WITH DAILY WITH MOUTH MEALS MEALS TWICE DAILY WITH MEALS metoprolol metoprolol metoprolol [facility] tartrate tartrate tartrate Fam ramses 100 mg [...] DAILY TABLET BY MOUTH DAILY nitroglycer nitroglycer nitrolisa [facility] in 0.4 mg in 0.4 mg rin 0.4 mg [facility] sublingual sublingual sublingual Practic tablet tablet tablet [...] NEEDED FOR INSOMNIA albuterol albuterol No albuterol [facility] sulfate 2.5 sulfate 2.5 sulfate Family mg/3 mL mg/3 mL 2.5 mg/3 Pract ic (0.083 %) (0.083 %) mL (0.083 e solution solution %) for for solution nebulizatio nebulizatio for n n nebulizati on albuterol albuterol No albuterol [facility] sulfate HFA sulfate HFA sulfate Family 90 [...] SHORTNESS OF BREATH allopurinol allopurinol No allopurino [facility] 300 mg 300 mg l 300 mg Family tablet TAKE tablet TAKE tablet Practic 1 TABLET BY 1 TABLET BY TAKE 1 e MOUTH TWICE MOUTH TWICE TABLET BY DAILY. DAILY. MOUTH TWICE DAILY. alprazolam alprazolam No alprazolam [facility] 2 mg tablet 2 mg tablet 2 mg F amily TAKE 1 TAKE 1 tablet Practic TABLET BY TABLET BY TAKE 1 e MOUTH THREE MOUTH THREE TABLET BY TIMES DAILY TIMES DAILY MOUTH NEEDED NEEDED THREE FOR ANXIETY FOR ANXIETY TIMES DAILY NEEDED FOR ANXIETY amlodipine amlodipine No amlodipine [facility] 5 mg tablet 5 mg tablet 5 mg F amily TAKE 1 TAKE 1 tablet Practic TABLET BY TABLET BY TAKE 1 e MOUTH EVERY MOUTH EVERY TABLET BY DAY DAY MOUTH EVERY DAY atorvastati atorvastati No atorvastat [facility] n 20 mg n 20 mg in 20 mg Famil y tablet TAKE tablet TAKE tablet Practic 1 TABLET BY 1 TABLET BY TAKE 1 e MOUTH EVERY MOUTH EVERY TABLET BY DAY DAY MOUTH EVERY DAY BD Insulin BD Insulin No BD Insulin [facility] Syringe Syringe Syringe Family U-500 1/2 U-500 [...] Village rine 10 mg rine 10 mg wiely 10 Family tablet TAKE tablet TAKE mg tablet Practic 1 TABLET BY 1 TABLET BY TAKE 1 e MOUTH EVERY MOUTH EVERY TABLET BY NIGHT AT NIGHT AT MOUTH BEDTIME BEDTIME EVERY NEEDED FOR NEEDED FOR NIGHT AT MUSCLE MUSCLE BEDTIME SPASM OR SPASM OR NEEDED FOR EAR PAIN EAR PAIN MUSCLE SPASM OR EAR PAIN diclofenac diclofenac No diclofenac [facility] 1 % topical 1 % topical 1 % F amily gel APPLY gel APPLY topical Pr actic TO THE TO THE gel APPLY e AFFECTED AFFECTED TO THE AREA FOUR AREA FOUR AFFECTED TIMES DAILY TIMES DAILY AREA FOUR TIMES DAILY diclofenac diclofenac No diclofenac [facility] sodium 75 sodium 75 sodium 75 Family mg mg mg Practic tablet,artem tablet,artem tablet,del e yed release yed release ayed TAKE 1 TAKE 1 release TABLET BY TABLET BY TAKE 1 MOUTH TWICE MOUTH TWICE TABLET BY DAILY WITH DAILY WITH MOUTH MEALS MEALS TWICE DAILY WITH MEALS dicyclomine dicyclomine No dicyclomin [facility] 10 mg 10 mg e 10 mg Family capsule capsule capsule Practi c TAKE 1 TAKE 1 TAKE 1 e CAPSULE BY CAPSULE BY CAPSULE BY MOUTH EVERY MOUTH EVERY MOUTH 8 HOURS 8 HOURS EVERY 8 HOURS gabapentin gabapentin No gabapentin [facility] 600 mg 600 mg 600 mg Family [...] SKIN EVERY EVENING hydralazine hydralazine No hydralazin [facility] 100 mg 100 mg e 100 mg Family tablet TAKE tablet TAKE tablet Practic 1 TABLET BY 1 TABLET BY TAKE 1 e MOUTH THREE MOUTH THREE TABLET BY TIMES DAILY TIMES DAILY MOUTH THREE TIMES DAILY Immunizations Ordered Filled Immunization Date Status Comments [facility] e Immunization Name Name SARS-COV-2 COVID-19 2021-07-11 Completed Unive rsity of MODERNA VACCINE 00:00:00 [facility] SARS-COV-2 COVID-19 2021-07-11 Completed Unive rsity of MODERNA VACCINE 00:00:00 [facility] SARS-COV-2 COVID-19 2021-01-01 Completed Unive rsity of MODERNA VACCINE 00:00:00 [facility] SARS-COV-2 COVID-19 2021-01-01 Completed Unive rsity of MODERNA VACCINE 00:00:00 [facility] SARS-COV-2 COVID-19 2021-01-01 Completed Unive rsity of MODERNA VACCINE 00:00:00 [facility] SARS-COV-2 COVID-19 2020-12-03 Completed Unive rsity of MODERNA VACCINE 00:00:00 [facility] SARS-COV-2 COVID-19 2020-12-03 Completed Unive rsity of MODERNA VACCINE 00:00:00 [facility] SARS-COV-2 COVID-19 2020-12-03 Completed Unive rsity of MODERNA VACCINE 00:00:00 [facility] Influenza Virus 2020-11-13 Completed Universit y of Vaccine Quad .5 mL 00:00:00 [place] Medical IM 6+ MO Branch Influenza Virus 2020-11-13 Completed Universit y of Vaccine Quad .5 mL 00:00:00 [place] Medical IM 6+ MO Branch Influenza Virus 2020-11-13 Completed Universit y of Vaccine Quad .5 mL 00:00:00 [facility] [place] [facility] IM 6+ MO Branch Vital Signs Vital [...] 21:40:00 133 mm[Hg] Univer sity of pressure [facility] Diastolic blood 2021-12-18 21:40:00 68 mm[Hg] Unive rsity of pressure [facility] Heart rate 2021-12-18 21:40:00 88 /min Universi ty [facility] Body height 2021-12-18 21:40:00 160 cm [facility] Body weight 2021-12-18 21:40:00 [facility] 2021-12-18 21:40:00 59.47 kg/m2 [facility] Oxygen saturation in 2021-12-18 21:40:00 93 /min [facility] Arterial blood by [facility] Pulse oximetry Branch Systolic blood 2021-11-06 19:35:00 132 mm[Hg] [facility] pressure Medicine Diastolic blood 2021-11-06 19:35:00 69 mm[Hg] [facility] Medicine Heart rate 2021-11-06 19:35:00 93 /min [facility] Body temperature 2021-11-06 19:35:00 36 Pat [facility] Respiratory rate 2021-11-06 19:35:00 18 /min [facility] Body height 2021-11-06 19:35:00 160 cm [facility] Body weight 2021-11-06 19:35:00 151.32 kg [facility] BMI 2021-11-06 19:35:00 59.09 kg/m2 [facility] BP Diastolic 2021-08-21 00:00:00 89 mm[Hg] [facility] Height 2021-08-21 00:00:00 63 [in_i] [facility] BMI (Body Mass 2021-08-21 00:00:00 58.1 kg/m2 [facility] Family Index) Practice BP Systolic 2021-08-21 00:00:00 131 mm[Hg] [facility] Body Weight 2021-08-21 00:00:00 328 [lb_av] [facility] Procedures Procedure Date / Time Performing Clinician Source Performed PAIN MANAGEMENT 2021-02-12 05:01:00 Doctor Unassigned, No Univer [facility] AGREEMENT & INFORMED Name Medical Bra [facility] CONSENT Knee Surgery [facility] Procedure on Shoulder [facility] Fa davida Practice Maintenance of Gastric [facility] amily [facility] Practice Gallbladder Surgery [facility] Fami ly Practice Appendectomy [facility] Plan of Care Planned Activity Planned Date Details Comments Source Future Scheduled 2021-11-18 Screening for [facility] Test 09:34:08 malignant neoplasm of of Med icine colon (procedure) [code = [id number]] Future Scheduled 2021-11-18 Screening for [facility] Col lege Test 09:34:08 malignant neoplasm of of Med icine breast (procedure) [code = 387994482] Future Scheduled 2021-11-18 TETANUS SHOT (ADULT) [employer] Test 09:34:08 [code = TETANUS SHOT of Medi cine (ADULT)] Future Scheduled 2021-11-18 BMI FOLLOW UP PLAN [employer] Test 09:34:08 [code = BMI FOLLOW UP of Med icine PLAN] Future Scheduled 2021-11-18 Hepatitis C screening [employer] [facility] [employer] Test 09:34:08 (procedure) [code = of Medic ine 423896582] Future Scheduled 2021-11-18 Human immunodeficiency B [facility] Test 09:34:08 virus screening of Medicine (procedure) [code = 004301161] Future Scheduled 2021-11-18 Screening for [facility] [employer] Test 09:34:08 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) [code = 111837199] Future Scheduled 2021-11-18 MEDICARE AWV (Initial) B [facility] Test 09:34:08 [code = MEDICARE AWV of Medi cine (Initial)] Future Scheduled 2021-11-18 ZOSTER VACCINE (1 of [facility] Test 09:34:08 2) [code = ZOSTER of Medicin e VACCINE (1 of 2)] Future Scheduled 2021-11-18 FLU VACCINE > 6 MONTHS B [facility] Test 09:34:08 [code = FLU VACCINE > of Med icine 6 MONTHS] Future Scheduled 2021-11-13 Depression screening Uni versity of Test 00:00:00 (procedure) [code = [facility] dical 609198996] Branch Future Scheduled 2021-11-06 ANOREC MANOM AND 1 Occurrences [facility] Test 14:07:12 EMG-GI DEPT [code = starting of Medic ine NOCPT] 11/06/2021 until 05/06/2022 Future Scheduled 2021-11-06 EGD W/MAC - GI DEPT 1 Occurrences [facility] Test 14:07:11 [code = 53372] starting of Medicine 11/06/2021 until 05/06/2022 Future Scheduled 2021-11-06 COLONOSCOPY W MAC GI 1 Occurrences [facility] Test 14:07:11 DEPT [code = 21680] starting of Medic ine 11/06/2021 until 05/06/2022 Future Scheduled 2020-12-28 Creatinine measurement U niversity of Test 00:00:00 (procedure) [code = [facility] dical 73180789] Branch Future Scheduled 2020-12-28 Calculated low density U niversity of Test 00:00:00 lipoprotein [facility] cholesterol level Branch (procedure) [code = 862451262] Future Scheduled 2020-06-27 Hemoglobin A1c Universit y of Test 00:00:00 measurement [facility] (procedure) [code = Branch 25766821] Future Scheduled 2020-04-18 Diabetic foot University of Test 00:00:00 examination [facility] (regime/therapy) [code Bran h = 240216548] Future Scheduled 2019-09-16 Examination of retina Un iversity of Test 00:00:00 (procedure) [code = [place] [facility] dical 865516386] Branch Future Scheduled 2017 Screening for occult Uni versity of Test 00:00:00 blood in feces [facility] (procedure) [code = Branch 214821999] Future Scheduled 2017 Stool DNA-based Universi ty of Test 00:00:00 colorectal cancer [facility] screening (procedure) Branch [code = 067529125453148] Future Scheduled 2017 Flexible fiberoptic Univ ersity of Test 00:00:00 sigmoidoscopy [facility] (procedure) [code = Branch 38900711] Future Scheduled 2017 Screening for University of Test 00:00:00 malignant neoplasm of [facility] colon (procedure) Branch [code = 874587408] Future Scheduled 2017 Screening for University of Test 00:00:00 malignant neoplasm of [facility] colon (procedure) Branch [code = 604722237] Future Scheduled 2017 Zoster Recombinant Unive rsity of Test 00:00:00 Vaccine (SHINGRIX) (1 [facility] of ) [code = Zoster Branch Recombinant Vaccine (SHINGRIX) (1 of 2)] Future Scheduled 2007 Screening for University of Test 00:00:00 malignant neoplasm of [facility] breast (procedure) Branch [code = 633498344] Future Scheduled 1988 Screening for University of Test 00:00:00 malignant neoplasm of [facility] cervix (procedure) Branch [code = 585409931] Future Scheduled 1986 DTaP,Tdap,and Td Univers ity of Test 00:00:00 Vaccines (1 - Tdap) [facility] dical [code = DTaP,Tdap,and Branch Td Vaccines (1 - Tdap)] Future Scheduled 1977 Microalbumin University of Test 00:00:00 measurement, urine, [place] [facility] dical quantitative Branch (procedure) [code = 109292174] Encounters Start End Encounter Admission Attending Care Care Encounter Source Date/Time Date/Time Type Type Clinicians Facility Department ID 2020-08-22 Inpatient Tapan Martin [facility] ENDO [id number] [facility] 11:00:00 [id number] [facility] 2019-12-13 Inpatient Kaur, [facility] ENDO [id number] [facility] 07:00:00 Zacarias [id number] [facility] 2019-12-11 Inpatient IONA KaurPM ENDO [id number] [facility] 07:30:00 Zacarias [facility] 2019-12-07 Inpatient EL IONA KaurPM ENDO [id number] [facility] 10:00:00 Zacarias [facility] 2022-01-09 2022-01-09 Outpatient KYLAH WISE [facility] [id number] [facility] 07:39:00 14:08:00 DEWAYNE 2022-01-08 2022-01-08 Outpatient [facility] [id number] SLE 12:18:15 23:59:00 2021-12-18 2021-12-18 [facility] [id number] Univers 15:45:00 16:15:00 Visit [facility] [id number] it y of [place] 4.2.7.2.686 Frankie as JAVIER?BLEA [phone] [address] OFFICE [facility] 2021-12-18 2021-12-18 Outpatient R GALILEA [facility] [id number] Univers 15:45:00 15:45:00 [facility] 2021-12-04 2021-12-04 Outpatient KYLAH WISE [facility] Surgery [id number] SLEH 08:54:00 10:51:00 DEWAYNE 2021-11-06 2021-11-06 Office [facility] [id number] [facility] 13:24:51 16:22:30 Visit [facility] [id number] College Y 0.2.7.2.686 [id number] [facility] patsy 325 e 2021-10-11 2021-10-11 Outpatient Aguilar_M VFP VFP [id number] Village 06:17:00 06:17:00 [id number] Family Practic e 2021-10-03 2021-10-03 Outpatient Aguilar_M VFP VFP [id number] [facility] 05:34:00 05:34:00 [id number] Family Practic e 2021-08-21 2021-08-21 Outpatient Aguilar_M VFP VFP [id number] [place] [address] 03:04:00 03:04:00 [id number] Family Practic e 2021-08-21 2021-08-21 Yousuf VFP [place] - [id number] V illage 00:00:00 00:00:00 [facility] Family [place], Medical - Pract brando MD: [address], [place] [address] , Ph. 2021-08-20 2021-08-20 Outpatient Alvarez_R VFP VFP [id number] [place] [address] 04:30:00 04:30:00 [id number] Family Practic e 2021-03-26 2021-03-26 Refmaddie Sheriff [facility] [id number] 00:00:00 00:00:00 [facility] [id number] [place] 4.2.7.2.686 Professio [phone] [place] [address] [address] 2021-03-25 2021-03-25 [facility] [id number] 00:00:00 00:00:00 [facility] [id number] [place] 4.2.7.2.686 Professio [phone] [place] [address] [address] 2021-03-18 2021-03-18 Telephone [facility] [id number] 00:00:00 00:00:00 Randall Elizabeth 350.1.13.10 [place] 4.2.7.2.686 Professio [phone] [place] [address] Building 2021-03-13 2021-03-13 [place] [facility] [id number] 00:00:00 00:00:00 [facility] [id number] [place] [id number] Professio [phone] nal [facility] Office [address] One 2020-08-23 2020-08-23 Outpatient KYLAH Tapan Harper [facility] END[facility] LA4 [facility] 15:14:00 15:14:00 [id number] [facility] Results Test Description Test Time Test Comments Results Result Comments Source TISSUE EXAM 2022-01-12 Surgical Pathology 18:24:44 Report Case: [id number] Authorizing Provider: Dewayne Wise MD Collected: 01/09/2022 11:31 AM Ordering Location: [facility] Endoscopy Received: 01/09/2022 03:51 PM Services Pathologist: Evelin Wharton MD Specimens: A) - Polyp, Colon - Right/Ascending, ascending colon polyp B) - Polyp, Colon - Sigmoid, sigmoid polyp C) - Biopsy, Gastric, random gastric bx A. COLON, RIGHT/ASCENDING, POLYPECTOMY: - TUBULAR ADENOMAB. COLON, SIGMOID, POLYPECTOMY: - TUBULAR ADENOMA C. STOMACH, SITE NOT SPECIFIED, BIOPSY - REACTIVE GASTROPATHY - OXYNTIC MUCOSA WITH NO PATHOLOGIC ALTERATION - NEGATIVE FOR HELICOBACTER MICROORGANISMS ON ROUTINE STAINS Signing Pathologist Direct Phone Line: [phone] naima signed by Evelin Wharton MD on 01/12/2022 at 6:24 [id number] geal reflux disease, polyp of colonA. Polyp, colon-right/ascending B. Polyp, colon-sigmoidC. Biopsy, gastric, randomA. Received in formalin labeled with the patient's name, medical record number and "ascending colon polyp" and consists of a piece of vazquez soft tissue measuring 0.5 x 0.4 x 0.2 cm. The specimen is submitted in toto in A1.B. Received in formalin labeled with the patient's name, medical record number and "sigmoid colon polyp" and consists of 3 pieces of vazquez-pink soft tissue ranging in size from 0.5 x 0.2 x 0.2 cm to 0.5 x 0.3 x 0.2 cm and measuring 1.3 x 0.3 x 0.2 cm in aggregate. The specimen is submitted in toto in B1.C. Received in formalin labeled with the patient's name, medical record number and "gastric BX" and consists of 5 pieces of vazquez-pink soft tissue ranging in size from 0.3 x 0.2 x 0.2 cm to 0.4 x 0.3 x 0.2 cm and measuring 1.0 x 0.7 x 0.2 cm in aggregate. The specimen is submitted in toto in C1.KHHA-B. No high-grade dysplasia or malignancy is identified. C. No significant inflammation, intestinal metaplasia, dysplasia or malignancy is seen. No Helicobacter microorganisms are seen on routine stains. POCT-GLUCOSE METER 2022-01-09 13:54:18 Test Item Value Reference Range Interpretation Comme nts POC-GLUCOSE METER (BEAKER) 133 mg/dL 70-110 H : [facility] [address] [facility]test code = 1538) [facility], [address]: Hole Digger/Techni miguelina ID = [id number] for Marybel Earl POCT-GLUCOSE [id number] 10:12:16 Test Item Value Reference Range Interpretation Comments POC-GLUCOSE METER 135 mg/dL 70-110 H : TESTED A T [facility] [address] (BEAKER) (test code = MIRNA Delgadillo [facility], 1538) [address]: Hole Digger/Techni miguelina ID = [id number] for HOLLY MAYELA FULLER SARS-COV2/RT-PCR ([facility])2022-01-09 09:03:44 Test Item Value Reference Range Interpretation Comments SARS-COV2/RT-PCR Negative Negative The SARS-Co V-2 target (test code = nucleic acids a re not [id number]) detected in thi s specimen. Negative result [...] revoked sooner. Fact Sheet for Healthcare Providers: https://www.Heyo/Documents/Xpert%20Xpress%20SARS%20CoV-2/Fact%20Sheets/302-3802%20SARS-COV -2%20HEALTHCARE%20PROVIDERS%20FACT%20SHEET.pdf Fact Sheet for Healthcare Patients: https://www.Advaxis/Documents/Xpert %20Xpress%20SARS%20CoV-2/Fact%20Sheets/302-3801%27PGNG-PPO-3%20PATIENT%20FACT%20 SHEET.[id number] 14:57:00 Test Item Value Reference Range Interpretation Comments SURG (test code = SURG) RUN DATE: 08/26/20 [facility] PAGE 1 RUN TIME: 1457 Specimen Inquiry RUN USER: INTERFACE PATIENT: PEPE MACK LOC: ANDI U #: [id number] AGE/SX: 55/F ROOM: RE08/23/20REG DR: Tapan Harper MD : 69 BED: DIS: STATUS: DEP SDC TLOC: SPEC #: [id number] RECD: 08/23/20 STATUS: KRISTIN [place] #: [id number] AN: 08/23/[address]: Tapan Harper MD ENTERED: 08/23/20 SP TYPE: SURG OTHR DR: Trent Camp DO ORDERED: SURG PATH LVL 02/01 COPIES TO: Trent Camp DO [address] [place], [place] [address] Tapan Harper MD [address] [place] [address] HISTOLOGY: TISSUE ID BLK PCS DIANE LEV [...] - R10.84; K59.00 CPT CODES CPT CODE(S): 84143I3 , , , , , , FINAL DIAGNOSIS A. Colon, right, biopsy: COLONIC MUCOSA WITH NO PATHOLOGIC DIAGNOSIS B. Colon, mid, biopsy: COLONIC MUCOSA WITH NO PATHOLOGIC DIAGNOSIS CONTINUED ON NEXT PAGE RUN DATE: 08/26/20 [facility] PAGE 2 RUN TIME: 1456 Specimen Inquiry RUN USER: INTERFACE SPEC #: [facility]:[id number] PATIENT: PEPE MACK #[id number] (Continued) FINAL DIAGNOSIS (Continued) C. Colon, left, [...] all as C. ba/nr Grossing performed at [facility] Pathology, [address] [place] [address], [address], [place] [address]. Software Product Specialist: Leeroy Jimenes M.D. MICROSCOPIC DESCRIPTION A. Right [...] Signed SIGNATURE ON FILE Carlos Mendoza 08/26/20 4937 END OF REPORT GLUCOSE BEDSIDE [id number] 08:29:00 Test Item Value Reference Range Interpretation Comments GLUCOSE BEDSIDE TESTING (test code 156 mg/dL 70-110 H = GLUBED) BASIC METABOLIC [id number] 12:40:00 Test Item Value Reference Range Interpretation [...] CA) 9.0 MG/DL 8.5-10.1 N BASIC METABOLIC [id number] 12:37:00 Test Item Value Reference Range Interpretation [...] 9.0 MG/DL 8.5-10.1 N COVID 19 INHOUSE [id number] 12:37:00 Test Item Value Reference Range Interpretation Comments COVID 19 INHOUSE AG NEGATIVE Negative Per manu facturer, (test code = negative result s should [id number]) be treated aspr esumptive and, if inconsi [...] symptoms co nsistent with COVID-19. CBC W/AUTO [id number] 12:23:00 Test Item Value Reference Range Interpretation [...] (test code NO DIFF/SCN CRITERIA = MDIFF) [id number] 15:34:00 RUN DATE: 12/13/19 [facility] PAGE 1 RUN TIME: 1535 Specimen Inquiry RUN USER: INTERFACE PATIENT: PEPE MACK LOC: GLADYS U #: [id number] AGE/SX: 54/F ROOM: RE12/11/19[facility] DR: Zacarias Kaur MD : 69 BED: DIS: STATUS: DEP [facility] TLOC: SPEC #: [id number] RECD: 12/11/19 STATUS: KRISTIN RELang #: [id number] AN: 12/11/19 [facility] DR: Zacarias Kaur MD ENTERED: 12/11/19 SP TYPE: SURG OTHR DR: Trent Camp DO ORDERED: SURG PATH LVL 01/31 COPIES TO: Trent Camp DO [address] [place] [address] Zacarias Kaur MD [address] [place] [address] HISTOLOGY: TISSUE ID BLK PCS DIANE LEV PROCEDURE DISPOSITION ____ ___ ___ ___ GASTRIC ANTRUM A 1 3 GASTRIC ANTRUM B 1 3 PROCEDURES: SURG PATH LVL 4 (12/11/19-1054) TISSUES: A. GASTRIC ANTRUM - GASTRIC BIOPSY B. GASTRIC ANTRUM - DISTAL GASTRIC BIOPSY CLINICAL HISTORY EPIGASTRIC PAIN -R10.13; NAUSEA -R11.0; VOMITING -R11.10 CPT CODES CPT CODE(S): 23968R6 , , , , , , FINAL DIAGNOSIS A. Stomach, biopsy: MILD CHRONIC GASTRITIS NEGATIVE FORINTESTINAL METAPLASIA, DYSPLASIA, OR MALIGNANCY NEGATIVE FOR HELICOBACTER PYLORI ORGANISMS B. Stomach, distal, biopsy: MILD CHRONIC GASTRITIS NEGATIVE FOR INTESTINAL METAPLASIA, DYSPLASIA, OR MALIGNANCY CONTINUED ON NEXT PAGE RUN DATE: 12/13/19 [facility] PAGE 2 RUN TIME: 1535 Specimen Inquiry RUN USER: INTERFACE SPEC #: [facility]:[id number] PATIENT: PEPE MACK #[id number] (Continued)---- -------- FINAL DIAGNOSIS (Continued) NEGATIVE FOR HELICOBACTER PYLORI ORGANISMS GROSS DESCRIPTION A. Gastric biopsy. Received in formalin is a vazquez tissue fragment, 0.5 cm, all as A.B. Distal gastric biopsy. Received in formalin is a vazquez tissue fragment, 0.3 cm, all as B. shivam/nr Grossing performed at [facility] Pathology, [address] [place] [address], [address], [place], [place]. Software Product Specialist: Leeroy Jimenes M.D. MICROSCOPIC DESCRIPTION A. Gastric [...] identified. Signed SIGNATURE ON FILE Carlos Mendoza 12/13/19 1534 END OF REPORT GLUCOSE BEDSIDE [id number] 06:17:00 Test Item Value Reference Range Interpretation Comments GLUCOSE BEDSIDE TESTING (test code 170 mg/dL 70-110 H = GLUBED) UR HCG [id number] 11:12:00 Test Item Value Reference Range Interpretation Comments UR HCG QUAL (test code = HCGQLU) NEGATIVE NEGATIVE
[2022-01-14] MEDS ORDERED: MORPHINE 4 MG/ML SYR ONE (08:22)
[2022-01-14] MEDS ORDERED: ONDANSETRON 4 MG/2 ML VIAL ONE (08:22)
[2022-01-14 08:55] LABS: Absolute Lymphocytes (CBC) 2.7 K/uL (0.7-4.9); Hematocrit 43.9 % (36.0-45.0); Lymphocytes % 31.1 % (15.3-44.8); MPV 9.3 fL (7.6-11.3); RBC Red Blood Cell Count 4.69 M/uL (3.86-4.86)
[2022-01-14 08:58] LABS: Albumin 3.4 g/dL (3.4-5.0); Bilirubin Total 0.4 mg/dL (0.2-1.0); Potassium 3.2 mmol/L (3.5-5.1); Protein, Total 7.2 g/dL (6.4-8.2)
--- NOTE | 2022-01-14 09:15 | EDPHYS ---
Physician Documentation [facility] Name: Maria De Jesus Acosta Age: 56 yrs Sex: Female : 1965 Arrival Date: 01/14/2022 Time: 07:59 Bed 14 Private MD: Trent Irving H ED Physician Jaspreet Rhoades HPI: 01/14 08:14 This 56 yrs old Female presents to ER via Wheelchair with complaints of ms3 Abdominal Pain. 08:14 The patient presents with abdominal pain in the left upper quadrant, in the left lower ms3 quadrant. Onset: The symptoms/episode began/occurred 5 day(s) ago. The symptoms do not radiate. Associated signs and symptoms: none. The symptoms are described as burning. Modifying factors: The symptoms are alleviated by nothing, the symptoms are aggravated by nothing. 56-year-old female with past medical history of asthma, congestive heart failure, COPD, Crohn's, diabetes, hypertension presents for left-sided abdominal pain. Patient states she had an upper and lower endoscopy performed on January 09 where polyps were removed. Patient states her pain began after the procedure. Patient states she was seen in the emergency department 2 days ago. Patient states her pain is currently a 7/10 located on the left side of her abdomen and described as burning. Patient denies alleviating or inciting factors. Patient denies fevers, chills, vomiting, diarrhea.. Historical: - Allergies: 08:05 Doxycycline; jd3 08:05 kiwi; jd3 08:05 metoclopramide HCl; jd3 08:05 orange juice; jd3 08:05 Reglan; jd3 - PMHx: 08:05 Asthma; CHF; COPD; Crohn's; Diabetes - NIDDM; Hypertension; jd3 - Immunization history:: Adult Immunizations up to date, Client reports receiving the 2nd dose of the Covid vaccine, Flu vaccine is not up to date. - Social history:: Smoking status: Patient denies any tobacco usage or history of. ROS: 08:14 Constitutional: Negative for fever, and chills. Eyes: Negative for injury, pain, ms3 redness, and discharge, ENT: Negative for injury, pain, and discharge, Neck: Negative for injury, pain, and swelling, Cardiovascular: Negative for chest pain, and palpitations. Respiratory: Negative for shortness of breath, cough, wheezing, and pleuritic chest pain, Back: Negative for injury and pain, MS/Extremity: Negative for injury and deformity, Skin: Negative for injury, rash, and discoloration. 08:14 Abdomen/GI: Positive for abdominal pain, nausea. 08:14 All other systems are negative. Exam: 08:14 Constitutional: This is a well developed, well nourished patient who is awake, alert, ms3 and in no acute distress. Head/Face: Normocephalic, atraumatic. ENT: Nares patent. No nasal discharge, no septal abnormalities noted. Tympanic membranes are normal and external auditory canals are clear. Oropharynx with no redness, swelling, or masses, exudates, or evidence of obstruction, uvula midline. Mucous membranes moist. Chest/axilla: Normal chest wall appearance and motion. Nontender with no deformity. Cardiovascular: Regular rate and rhythm with a normal S1 and S2. No gallops, murmurs, or rubs. Normal PMI, no JVD. No pulse deficits. Respiratory: Lungs have equal breath sounds bilaterally, clear to auscultation and percussion. No rales, rhonchi or wheezes noted. No increased work of breathing, no retractions or nasal flaring. Back: No spinal tenderness. No costovertebral tenderness. Full range of motion. Skin: Warm, dry with normal turgor. Normal color with no rashes, no lesions, and no evidence of cellulitis. MS/ Extremity: Pulses equal, no cyanosis. Neurovascular intact. Full, normal range of motion. Neuro: Awake and alert, GCS 15, oriented to person, place, time, and situation. Cranial nerves II-XII grossly intact. Motor strength 5/5 in all extremities. Sensory grossly intact. Cerebellar exam normal. Normal gait. 08:14 Abdomen/GI: Inspection: obese Bowel sounds: normal, Palpation: abdomen is soft and non-tender, Rectal exam: Indicators: Vital Signs: 08:12 Pulse 73; Resp 20 S; Temp 97.9(TE); Pulse Ox 95% on R/A; Weight 151.05 kg (R); Height 5 jd3 ft. 3 in. (160.02 cm) (R); Pain 7/10; 08:27 BP 98 / 48; ph 08:12 Body Mass Index 58.99 (151.05 kg, 160.02 cm) jd3 MDM: 08:08 Patient medically screened. ms3 08:19 ED course: CT Abdomen and Pelvis with IV contrast results from 01/11/2022- No acute ms3 abdominal or pelvic abnormalities. Appendectomy.. 09:12 Differential diagnosis: gastritis, non-specific abd pain, pancreatitis, anemia. ms3 09:13 Data reviewed: vital signs, nurses notes, lab test result(s). ED course: Discussed labs ms3 and physical exam findings with patient and her . 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 Patient understands and agrees with plan. All questions were answered. Return precautions discussed include worsening symptoms, or any other concerns. On reevaluation patient symptoms improved, patient is alert and oriented x4, no apparent distress, nontoxic, rating p.o.. 01/14 08:08 Order name: CBC with Diff; Complete Time: 09:05 ms3 01/14 08:08 Order name: CMP; Complete Time: 09:05 ms3 01/14 08:08 Order name: Lipase; Complete Time: 09:05 ms3 01/14 08:08 Order name: IV Saline Lock; Complete Time: 08:42 ms3 01/14 08:08 Order name: Labs collected and sent; Complete Time: 08:42 ms3 Administered Medications: 08:40 Drug: Zofran (Ondansetron) 4 mg Route: IVP; Site: right antecubital; ph 09:39 Follow up: Response: No adverse reaction; Nausea is decreased ph 08:43 Drug: morphine 4 mg Route: IVP; Site: right antecubital; ph 09:39 Follow up: Response: No adverse reaction; Pain is decreased; RASS: Alert and Calm (0) ph 09:39 Drug: Potassium Chloride 40 mEq Route: PO; ph 09:40 Follow up: Response: No adverse reaction; Medication administered at discharge. ph Disposition Summary: 01/14/22 09:14 Discharge Ordered Location: Home ms3 Condition: Stable ms3 Diagnosis - Hypokalemia ms3 - Nausea ms3 - Abdominal pain, unspecified ms3 Followup: ms3 - With: Private Physician - When: 1 - 2 days - Reason: Discharge Instructions: - Discharge Summary Sheet ms3 - Abdominal Pain, Adult ms3 - Hypokalemia ms3 Forms: - Medication Reconciliation Form ms3 - SBAR form ph - Thank You Letter ms3 - Antibiotic Education ms3 - Prescription Opioid Use ms3 Prescriptions: - Zofran 4 mg Oral Tablet - take 1 tablet by ORAL route every 8 hours As needed; 20 tablet; Refills: 0, ms3 Product Selection Permitted Signatures: Dispatcher [employer] EDNguyen Lynch RN RN Pramod Scott RN RN jd3 Jaspreet Rhoades DO DO ms3 Corrections: (The following items were deleted from the chart) 08:21 08:19 ED course: CT Abdomen and Pelvis with IV contrast results from 01/11/2022: . ms3 ms3 08:22 08:19 ED course: CT Abdomen and Pelvis with IV contrast results from 01/11/2022- ms3 Negative acute. ms3
--- NOTE | 2022-01-14 09:15 | ER ---
Nurse's Notes [facility] Name: Maria De Jesus Acosta Age: 56 yrs Sex: Female : 1965 Arrival Date: 01/14/2022 Time: 07:59 Bed 14 Private MD: Trent rIving H Diagnosis: Hypokalemia;Nausea;Abdominal pain, unspecified Presentation: 01/14 08:04 Chief complaint: Patient states: "I was seen 2 days ago for this same thing with jd3 stomach pain and was told to come back if the pain continues. I did have a procedure done in [place].". Coronavirus screen: At this time, the client does not indicate any symptoms associated with coronavirus-19. Ebola Screen: No symptoms or risks identified at this time. Initial Sepsis Screen: Does the patient meet any 2 criteria? No. Patient's initial sepsis screen is negative. Does the patient have a suspected source of infection? No. Patient's initial sepsis screen is negative. Risk Assessment: Do you want to hurt yourself or someone else? Patient reports no desire to harm self or others. Onset of symptoms was January 12, 2022. 08:04 Method Of Arrival: Wheelchair jd3 08:04 Acuity: EMERALD 3 jd3 Historical: - Allergies: 08:05 Doxycycline; jd3 08:05 kiwi; jd3 08:05 metoclopramide HCl; jd3 08:05 orange juice; jd3 08:05 Reglan; jd3 - PMHx: 08:05 Asthma; CHF; COPD; Crohn's; Diabetes - NIDDM; Hypertension; jd3 - Immunization history:: Adult Immunizations up to date, Client reports receiving the 2nd dose of the Covid vaccine, Flu vaccine is not up to date. - Social history:: Smoking status: Patient denies any tobacco usage or history of. Screenin:13 Abuse screen: Denies threats or abuse. Denies injuries from another. Nutritional ph screening: No deficits noted. Tuberculosis screening: No symptoms or risk factors identified. Fall Risk None identified. Assessment: 08:43 General: Appears in no apparent distress. uncomfortable, Behavior is calm, cooperative, ph appropriate for age, drowsy, Denies fever. Pain: Complains of pain in posterior aspect of right lateral abdomen, anterior aspect of right lateral abdomen and right lower quadrant. Neuro: Level of Consciousness is awake, alert, obeys commands, Oriented to person, place, time, situation. Cardiovascular: Capillary refill < 3 seconds in bilateral fingers Patient's skin is warm and dry. Respiratory: Airway is patent Respiratory effort is even, unlabored, Respiratory pattern is regular, symmetrical. GI: Abdomen is obese, Abd is soft X 4 quads Reports lower abdominal pain, upper abdominal pain, bloody stool, nausea, states, " There was bright red blood in my stool a few days ago right after the procedure, but there hasn't been any since then". Vital Signs: 08:12 Pulse 73; Resp 20 S; Temp 97.9(TE); Pulse Ox 95% on R/A; Weight 151.05 kg (R); Height 5 jd3 ft. 3 in. (160.02 cm) (R); Pain 7/10; 08:27 BP 98 / 48; ph 08:12 Body Mass Index 58.99 (151.05 kg, 160.02 cm) [facility] ED Course: 07:59 Patient arrived in ED. mr 07:59 Trent Irving DO is Private Physician. mr 08:01 Jaspreet Rhoades DO is Attending Physician. ms3 08:05 Triage completed. jd3 08:07 Arm band placed on. jd3 08:13 Nguyen Ovalles, RN is Primary Nurse. ph 08:13 Patient has correct armband on for positive identification. Placed in gown. Bed in low ph position. Call light in reach. Side rails up X 1. Pulse ox on. NIBP on. Door closed. Noise minimized. 08:24 Adult w/ patient. Warm blanket given. mh5 08:25 Initial lab(s) drawn, by ED staff, sent to lab. mh5 09:41 No provider procedures requiring assistance completed. IV discontinued, intact, ph bleeding controlled, No redness/swelling at site. Pressure dressing applied. Administered Medications: 08:40 Drug: Zofran (Ondansetron) 4 mg Route: IVP; Site: right antecubital; ph 09:39 Follow up: Response: No adverse reaction; Nausea is decreased ph 08:43 Drug: morphine 4 mg Route: IVP; Site: right antecubital; ph 09:39 Follow up: Response: No adverse reaction; Pain is decreased; RASS: Alert and Calm (0) ph 09:39 Drug: Potassium Chloride 40 mEq Route: PO; ph 09:40 Follow up: Response: No adverse reaction; Medication administered at discharge. ph Outcome: 09:14 Discharge ordered by . ms3 09:41 Discharged to home via wheelchair. ph 09:41 Condition: good 09:41 Discharge instructions given to patient, Instructed on discharge instructions, follow up and referral plans. medication usage, Demonstrated understanding of instructions, follow-up care, medications. 09:45 Patient left the ED. ph Signatures: Flory Kim Patricia RN RN Irina Morris [facility] Pramod Rojas RN RN Jaspreet Hutchinson DO DO ms3
[2022-01-14] MEDS ORDERED: POTASSIUM CL SA 10 MEQ TAB PO ONE (09:34)
[2022-01-14 09:49] VITALS: TEMP 97.9; O2SAT 95
[2022-01-14 09:50] VITALS: BP 98/48
== END 2022-01-14 09:45 | disposition home or self-care (01) ==
LOC: ER 07:55
DX: R10.12 Left upper quadrant pain (principal); R10.32 Left lower quadrant pain; E87.6 Hypokalemia; R11.0 Nausea; K50.90 Crohn's disease, unspecified, without complications; Z91.018 Allergy to other foods; Z91.048 Other nonmedicinal substance allergy status
CPT/HCPCS: 85025; 36415; 83690; 80053; 96375; 96374; 99283; J2405

== ENCOUNTER 2022-01-24 16:23 | Emergency (ER) | payer OTHER ==
--- OUTSIDE RECORDS SUMMARY | 2022-01-24 16:28 | XMS REPORT | Continuity of Care Document ---
:1965 Author Organization [facility] t Address [address] [place] [id number] Care Team Providers Name Role Phone Vickie CAMP Primary Care Physician Unavailable Rosalio Harper Attending Clinician Unavailable Julissa Kaur Attending Clinician Unavailable Jaziel GRIFFIN Attending Clinician ALVARO WISE Attending Clinician Unavailable ALVARO WISE Attending Clinician Unavailable Oliver JOY S Attending Clinician Annette CALERO Attending Clinician Unavailable Aguilar_M Attending Clinician Unavailable Alvarez_R Attending Clinician Unavailable Doctor Unassigned, Name Attending Clinician Unavailable Vickie Camp Admitting Clinician Unavailable ALVARO WISE Admitting Clinician Unavailable Aguilar_M Admitting Clinician Unavailable Alvarez_R Admitting Clinician Unavailable Payers Payer Name Policy Type Policy Number Effective Date Expiration Date S carlos MEDICARE PART A [id number] \\T\\ [id number] - [id number] MEDICAID MEDICARE A B [id number] 2010 00:00:00 [place]ID OF [place] [id number] 2021 00:00:00 [place] [id number] 2010 [employer] 00:00:00 [place] [id number] [place] Problems Condition Condition Condition Status Onset [...] syndrome) syndrome[place] Allergies, Adverse Reactions, Alerts Allergy Allergy Status Severity Reaction(s) Onset Inactive Treating Comm ents Source Name Type Date Date Clinician Doxycycl Propensi Active [facility] ine ty to 11-06 [place] adverse 00:00: of reaction 00 Medicin s to e drug Metoclop Propensi Active [place] ramide ty to 11-06 [place] adverse 00:00: of reaction 00 Medicin s to e drug doxycycl DA [facility] 12-07 [place] 00:00: d 00 [facility] metoclop DA Active [facility] ramide 12-07 [place] 00:00: d 00 [facility] doxycycl DA Active [facility] VOMITING [facility] ine 12-07 [place] 00:00: d 00 [facility] metoclop DA Active U UNKNOWN [facility] ramide 12-07 [place] 00:00: d 00 [facility] [place] Propensi Active Nausea Univers ty to and/or 7 ity of adverse Vomiting 00:00: [place] reaction 00 Medical s Branch ORANGE DRUG Active N/V Univers INGREDI 711 ity of 00:00: [place] [facility] [place] ORANGE Allergy Active Med N\\T\\V [facility] [...] INGREDI 3-16 ity of 00:00: [place] [facility] [place] METOCLOP DRUG Active Unknown-Cmnt Oscar CUMMINGS INGREDI 3-16 ity of HCL 00:00: [place] [facility] DOXYCYCL Allergy Active High N\\T\\V [facility] METOCLOP Allergy Active High Other [facility]16 [facility] - 00:[facility]: Medical 00 [place] NO KNOWN Allergy Active [facility] St ALLERGIE [facility] Doxycycl Allergy Active [place] ine to Family substanc Practic e e Social History Social Habit Start Date Stop Date Quantity Comments Source History of tobacco Cigarette Smoker [facility] of use [place] [facility] Exposure to Not sure University of SARS-CoV-2 (event) [place] [facility] History [facility] University o f Transport Non-Med [facility] edical Branch Tobacco use and 2021-11-06 2021-11-06 Smokeless [facility] Co llege of exposure 00:00:00 00:00:00 tobacco non-user Medicine Alcohol intake 2021-11-06 2021-11-06 Ex-drinker [facility] Col lege of 00:00:00 00:00:00 (finding) Medicine History SDAZ Social 2019-08-25 2019-08-25 3 Unive rsity of Connections Phone 00:00:00 00:00:00 [facility] edical Branch History SDOH Social 2019-08-25 2019-08-25 1 Unive rsity of Connections Get 00:00:00 00:00:00 [place] Med ical Together Branch History SDOH Social 2019-08-25 2019-08-25 1 Unive rsity of Connections Latter-Day 00:00:00 00:00:00 [place] [facility] History SDOH Social 2019-08-25 2019-08-25 2 Unive rsity of Connections 00:00:00 00:00:00 [place] [facility] Membership Branch History SDOH Social 2019-08-25 2019-08-25 1 Unive rsity of Connections 00:00:00 00:00:00 [place] [facility] Meetings Branch History SDOH Social 2019-08-25 2019-08-25 5 Unive rsity of Connections Living 00:00:00 00:00:00 [place] [facility] History SDOH 2019-08-25 2019-08-25 0 University o f Physical Activity 00:00:00 00:00:00 [facility] edical DPW Branch History SDOH 2019-08-25 2019-08-25 0 University o f Physical Activity 00:00:00 00:00:00 [facility] edical MPS Branch History SDOH Stress 2019-08-25 [...] 1 Univers ity of Worry 00:00:00 00:00:00 [place] [facility] History SDOH Food 2019-08-25 2019-08-25 1 Univers ity of Scarcity 00:00:00 00:00:00 [place] [facility] History SDOH 2019-08-25 2019-08-25 2 University o f Transport Med 00:00:00 00:00:00 [place] Medic al Branch Tobacco Comment 2019-08-25 2019-08-25 Started at 25- Unive rsity of 00:00:00 00:00:00 end at 42 [facility] [place] Branch Cigarettes smoked 2018-05-10 2018-05-10 Univers ity of current (pack per 00:00:00 00:00:00 ) - Reported Branch Sex [birth year] [facility] Co llege of 00:00:00 00:00:00 Medicine Smoking Status Start Date Stop Date Source Never smoked tobacco [facility] An ege of Medicine Former smoker 2018-05-10 00:00:00 2018-05-10 00:00:00 [facility] [place] [facility] Medications Ordered Filled Start Stop Current Ordering Indication Dosage Frequency Signature Comments Components Source Medication Medication Date Date Medication? Clinician (SIG) Name Name HYDRALAZINE Yes [id number] TAKE 1 Univers 100 mg 3-16 TABLET BY ity of tablet 00:00: MOUTH [place] 00 THREE Medical TIMES Branch DAILY HYDROcodone 2021-0 Yes [id number] 1{tbl} Take 1 Un ally -acetaminop 3-08 tablet by ity of hen 7.5-325 00:00: mouth [place] mg per 00 every 6 Medical tablet (six) Branch hours as needed for Pain. Indication s: chronic pain gabapentin 2021-0 Yes [id number] 600mg Take 1 Univers 600 mg 3-07 tablet by ity of tablet 00:00: mouth 3 [place] 00 (three) Medical times Branch daily. METOPROLOL 0 Yes TAKE 1 Unive rs TARTRATE 2-14 TABLET BY ity of 100 mg 00:00: MOUTH [place] tablet 00 TWICE Medical DAILY Branch HYDRALAZINE 2021-0 Yes [id number] TAKE 1 Univers 100 mg 2-14 TABLET BY ity of tablet 00:00: MOUTH [place] 00 THREE Medical TIMES Branch DAILY METOPROLOL 0 Yes TAKE 1 Unive rs TARTRATE 2-14 TABLET BY ity of 100 mg 00:00: MOUTH [place] tablet 00 TWICE Medical DAILY Branch HYDRALAZINE 2021-0 Yes [id number] TAKE 1 Univers 100 mg 2-14 TABLET BY ity of tablet 00:00: MOUTH [place] 00 THREE Medical TIMES Branch DAILY METOPROLOL 2021-0 Yes TAKE 1 Unive rs TARTRATE 2-14 TABLET BY ity of 100 mg 00:00: MOUTH [place] tablet 00 TWICE Medical DAILY Branch HYDRALAZINE 2021-0 2021- No [id number] TAKE 1 Univers 100 mg 2-14 03-16 TABLET BY ity of tablet 00:00: 00:00 MOUTH [place] 00 :00 THREE Medical TIMES Branch DAILY HYDROcodone 2021-0 [...] for Pain. Indication s: chronic pain HYDROCHLORO 2021-0 Yes [id number] 12.5mg TAKE 1 Univers THIAZIDE 1-19 CAPSULE BY ity o f 12.5 mg 00:00: MOUTH [place] capsule 00 DAILY Medical Branch LISINOPRIL 2021-0 Yes [id number] TAKE 1/2 Univers 40 mg 1-19 TABLET BY ity of tablet 00:00: MOUTH [place] 00 TWICE Medical DAILY Branch HYDROCHLORO 2021-0 Yes [id number] 12.5mg TAKE 1 Univers THIAZIDE 1-19 CAPSULE BY ity o f 12.5 mg 00:00: MOUTH [place] capsule 00 DAILY Medical Branch LISINOPRIL 2021-0 Yes [id number] TAKE 1/2 Univers 40 mg 1-19 TABLET BY ity of tablet 00:00: MOUTH [place] 00 TWICE Medical DAILY Branch HYDROCHLORO 2021-0 Yes [id number] 12.5mg TAKE 1 Univers THIAZIDE 1-19 CAPSULE BY ity o f 12.5 mg 00:00: MOUTH [place] capsule 00 DAILY Medical Branch LISINOPRIL 2021-0 Yes [id number] TAKE 1/2 Univers 40 mg 1-19 TABLET BY ity of tablet 00:00: MOUTH [place] TWICE Medical DAILY Branch Prucaloprid 0 Yes [id number] 2mg Take 2 mg Riley e Succinate 06 by mouth An ege 2 MG TABS 00:00: daily. of 00 Medicin e PEG-KCl-NaC Yes [id number] [MOVI B aylor l-NaSulf-Na 11-06 PREP] Take [...] NEEDED FOR CHEST PAIN. DICLOFENAC 2020-11 Yes [id number] APPLY TO Univers SODIUM 1 % 2-02 THE ity of gel 00:00: AFFECTED [place] 00 AREA FOUR Medical TIMES Branch DAILY DICLOFENAC 2020-11 Yes [id number] APPLY TO Univers SODIUM 1 % 2-02 THE ity of gel 00:00: AFFECTED [place] 00 AREA FOUR Medical TIMES Branch DAILY DICLOFENAC 2020-11 Yes [id number] APPLY TO Univers SODIUM 1 % 2-02 THE ity of gel 00:00: AFFECTED [place] 00 AREA FOUR Medical TIMES Branch DAILY metFORMIN 2020-11 Yes [id number] 1000mg Take 1 Univers 1,000 mg 1-18 tablet by ity of tablet 00:00: mouth 2 (two) Medical times Branch daily with meals. metFORMIN 2020-11 Yes [id number] 1000mg Take 1 Univers 1,000 mg 1-18 tablet by ity of tablet 00:00: mouth 2 (two) Medical times Branch daily with meals. metFORMIN 2020-11 Yes [id number] 1000mg Take 1 Univers 1,000 mg 1-18 tablet by ity of tablet 00:00: mouth 2 (two) Medical times Branch daily with meals. colchicine 2020-11 Yes [id number] .6mg Take 1 U nivers 0.6 mg 0-07 tablet by ity of tablet 00:00: mouth [place] 00 daily. Medical Branch gabapentin 2020-11 Yes [id number] 600mg Take 1 Univers 600 mg 0-07 tablet by ity of tablet 00:00: mouth 3 (three) Medical times Branch daily. colchicine 2020-11 Yes [id number] .6mg Take 1 U nivers 0.6 mg 0-07 tablet by ity of tablet 00:00: mouth [place] 00 daily. Medical Branch gabapentin 2020-11 Yes [id number] 600mg Take 1 Univers 600 mg 0-07 tablet by ity of tablet 00:00: mouth 3 (three) Medical times Branch daily. colchicine 2020-11 Yes [id number] .6mg Take 1 U nivers 0.6 mg 0-07 tablet by ity of tablet 00:00: mouth [place] 00 daily. Medical Branch TRUEPLUS Yes USE TWICE Univ ers INSULIN 1 9-14 DAILY ity of mL 30 gauge 00:00: [place] x 516 Syrg 00 Medical Branch TRUEPLUS Yes USE TWICE Univ ers INSULIN 1 9-14 DAILY ity of mL 30 gauge 00:00: [place] x 5/16 Syrg 00 Medical Branch TRUEPLUS Yes USE TWICE Univ ers INSULIN 1 9-14 DAILY ity of mL 30 gauge 00:00: [place] x 03/16 Syrg Medical Branch insulin NPH Yes [id number] ADMINISTER Univers and regular 8-25 70 UNITS ity of human 70-30 00:00: [place] (HUMULIN 00 SKIN EVERY Medic al 70/30 U-100 MORNING Branc h INSULIN) THEN 100 unit/mL ADMINISTER (70-30) 60 UNITS injection UNDER THE SKIN EVERY EVENING insulin NPH Yes [id number] ADMINISTER Univers and regular 8-25 70 UNITS ity of human 70-30 00:00: [place] (HUMULIN 00 SKIN EVERY Medic al 70/30 U-100 MORNING Branc h INSULIN) THEN 100 unit/mL ADMINISTER (70-30) 60 UNITS injection UNDER THE SKIN EVERY EVENING insulin NPH Yes [id number] ADMINISTER Univers and regular 8-25 70 UNITS ity of human 70-30 00:00: [place] (HUMULIN 00 SKIN EVERY Medic al 70/30 U-100 MORNING Branc h INSULIN) THEN 100 unit/mL ADMINISTER (70-30) 60 UNITS injection UNDER THE SKIN EVERY EVENING mirtazapine Yes 15mg Take 15 mg Univers 15 mg 7-14 by mouth ity of tablet 09:38: at [place] [address] bedtime. [facility] mesalamine Yes 1.5g Take 1.5 g U nivers 0.375 gram 7-14 by mouth ity o f 24 hr 09:38: daily. [place] capsule 49 [facility] mirtazapine Yes 15mg Take 15 mg Univers 15 mg 7-14 by mouth ity of tablet 09:38: at [place] [address] bedtime. [facility] mesalamine Yes 1.5g Take 1.5 g U nivers 0.375 gram 7-14 by mouth ity o f 24 hr 09:38: daily. [place] capsule 49 [facility] mirtazapine Yes 15mg Take 15 mg Univers 15 mg 7-14 by mouth ity of tablet 09:38: at [place] [address] bedtime. [facility] mesalamine Yes 1.5g Take 1.5 g U nivers 0.375 gram 7-14 by mouth ity o f 24 hr 09:38: daily. [facility] 49 [facility] predniSONE 2020-0 Yes 10mg Take 10 mg U nivers 10 mg 6-22 by mouth ity of tablet 00:00: daily. 00 [facility] predniSONE 2020-0 Yes 10mg Take 10 mg U nivers 10 mg 6-22 by mouth ity of tablet 00:00: daily. [place] 00 [facility] predniSONE 2020-0 Yes 10mg Take 10 mg U nivers 10 mg 6-22 by mouth ity of tablet 00:00: daily. [place] [facility] Branch spironolact 2020-0 Yes 25mg Take 25 mg Univers one 25 mg 6-08 by mouth ity of tablet 00:00: daily. [place] [facility] spironolact 2020-0 Yes 25mg Take 25 mg Univers one 25 mg 6-08 by mouth ity of tablet 00:00: daily. [place] [facility] spironolact 2020-0 Yes 25mg Take 25 mg Univers one 25 mg 6-08 by mouth ity of tablet 00:00: daily. [place] 00 [facility] Branch neomycin-po 2020-0 [address] [id number] 3[drp] Place 3 Univers lymyxin-hyd 4-14 Drops in ity of rocortisone 00:00: left ear 4 [place] 3.5 (four) Medica l 1 times Branch mg/mL-unit/ daily. mL-% otic susp neomycin-po 2020-0 Yes [id number] 3[drp] Place 3 Univers lymyxin-hyd 4-14 Drops in ity of rocortisone 00:00: left ear 4 [place] 3.5-,000- (four) Medica l 1 times Branch mg/mL-unit/ daily. mL-% otic susp neomycin-po 2020-0 Yes [id number] 3[drp] Place 3 Univers lymyxin-hyd 4-14 Drops in ity of rocortisone 00:00: left ear 4 [place] 3.5-,000- (four) Medica l 1 times Branch mg/mL-unit/ daily. mL-% otic susp HYDROcodone 0 Yes chronic 1{tbl} Take 1 Univers -acetaminop [...] " Syrg hyperglycem E11.65 ia insulin Yes [id number] 1{each} 1 Each 2 Univers U-500 3-08 (two) ity of syringe-nee 00:00: times [place] dle 1/2 mL 00 daily with Med ical 31 gauge x meals. Branch " Syrg E11.65 insulin Yes [id number] 1{each} 1 Each 2 Univers U-500 3-08 (two) ity of syringe-nee 00:00: times [place] dle 1/2 mL 00 daily with Med ical 31 gauge x meals. Branch " Syrg E11.65 insulin Yes [id number] 1{each} 1 Each 2 Univers U-500 3-08 [...] 00 EVERY DAY Medica l Branch TRELEGY 2019-11 Yes INHALE 1 Univer s ELLIPTA 2-24 PUFF BY ity of 100-62.5-25 00:00: MOUTH [place] mcg DsDv 00 EVERY DAY Medica l Branch TRELEGY 2019-11 Yes INHALE 1 Univer s ELLIPTA 2-24 PUFF BY ity of 100-62.5-25 00:00: MOUTH [place] mcg DsDv 00 EVERY DAY Medica l Branch TRELEGY 2019-11 Yes INHALE 1 Univer s ELLIPTA 2-24 PUFF BY ity of 100-62.5-25 00:00: MOUTH [place] mcg DsDv 00 EVERY DAY Medica l Branch ipratropium 2019-11 Yes Univer s 0.02 % 2-23 ity of nebulizer 00:00: [place] solution 00 Medical Branch ipratropium 2019-11 Yes Univer s 0.02 % 2-23 ity of nebulizer 00:00: [place] solution 00 Medical Branch ipratropium 2019-11 Yes Univer s 0.02 % 2-23 ity of nebulizer 00:00: [place] solution 00 Medical Branch ipratropium 2019- Yes Univer s 0.02 % 2-23 ity of nebulizer 00:00: [place] solution 00 Medical Branch zolpidem 10 2019-11 Yes 10mg Take 10 mg Univers mg tablet 2-14 by mouth ity of 00:00: at bedtime [place] 00 as needed. Medical Branch zolpidem 10 2019-11 Yes 10mg Take 10 mg Univers mg tablet 2-14 by mouth ity of 00:00: at bedtime [place] 00 as needed. Medical Branch zolpidem 10 2019-11 Yes 10mg Take 10 mg Univers mg tablet 2-14 by mouth ity of 00:00: at bedtime [place] 00 as needed. Medical Branch zolpidem 10 2019-11 Yes 10mg Take 10 mg Univers mg tablet 2-14 by mouth ity of 00:00: at bedtime [place] 00 as needed. Medical Branch diclofenac 2019-11 [...] IN THE ity of capsule 00:00: MORNING [place] 00 AND THEN Q Medical 8 H PRF Branch ABDOMINAL PAIN. dicyclomine 2019-11 Yes TK 1 C PO U nivers 10 mg 1-24 IN THE ity of capsule 00:00: MORNING [place] 00 AND THEN Q Medical 8 H PRF Branch ABDOMINAL PAIN. dicyclomine 2019-11 Yes TK 1 C PO U nivers 10 mg 1-24 IN THE ity of capsule 00:00: MORNING [place] 00 AND THEN Q Medical 8 H PRF Branch ABDOMINAL PAIN. MOTEGRITY 2019-11 Yes TK 1 T PO Uni vers tablet 1-12 D ity of 00:00: [place] 00 Medical Branch MOTEGRITY 2019-11 Yes TK [...] tablet 1-04 Q 12 H ity of 00:: Medical Branch ondansetron 2019-11 Yes as needed. Univers 4 mg tablet -04 ity of 00:: Medical Branch ondansetron 2019-11 Yes as needed. Univers 4 mg tablet -04 ity of 00:: Medical Branch ondansetron 2019- Yes as needed. Univers 4 mg tablet 1-04 ity of 00:: Medical Branch diclofenac 2019-11 Yes Morbid 75mg Take 1 Uni vers 75 mg EC 0-08 obesity tablet by ity of tablet 00:00: with body mouth 2 [place] 00 mass index (two) Medical of 50 or times Branch higher daily with meals. diclofenac 2019-11 Yes [id number] 75mg Take 1 Univers 75 mg EC 0-08 tablet by ity of tablet 00:00: mouth 2 (two) Medical times Branch daily with meals. diclofenac 2019-11 Yes [id number] 75mg Take 1 Univers 75 mg EC 0-08 tablet by ity of tablet 00:00: mouth 2 (two) Medical times Branch daily with meals. diclofenac 2019-11 Yes [id number] 75mg Take 1 Univers 75 mg EC 0-08 tablet by ity of tablet 00:00: mouth 2 (two) Medical times Branch daily with meals. COLCHICINE 2019- Yes Gout, .6mg TAKE 1 Univ ers 0.6 mg 8-28 unspecified TABLET BY i ty of tablet 00:00: cause, MOUTH [place] 00 unspecified DAILY Medical chronicity, Branch unspecified site hydrALAZINE 2019-0 Yes Essential TAKE 1 Univers 100 mg 8-12 hypertensio TABLET BY i ty of tablet 00:00: n MOUTH THREE Medical TIMES Branch DAILY CLONIDINE 2019-0 Yes Essential TAKE 1 U nivers 0.2 mg 8-06 hypertensio TABLET BY i ty of tablet 00:00: n MOUTH THREE Medical TIMES Branch DAILY CLONIDINE 2019-0 Yes [id number] TAKE 1 Un ally 0.2 mg 8-06 TABLET BY ity of tablet 00:00: MOUTH 00 THREE Medical TIMES Branch DAILY CLONIDINE 2020-0 Yes [id number] TAKE 1 Un ally 0.2 mg 8-06 TABLET BY ity of tablet 00:00: MOUTH 00 THREE Medical TIMES Branch DAILY CLONIDINE 2020-0 Yes [id number] TAKE 1 Un ally 0.2 mg 8-06 [...] mcg capsule 7-06 BID ity of 00:00: [place] 00 Medical Branch AMITIZA 24 2020-0 Yes TK 1 C PO Un ally mcg capsule 7-06 BID ity of 00:00: [place] 00 Medical Branch AMITIZA 24 2020-0 Yes TK 1 C PO Un ally mcg capsule 7-06 BID ity of 00:00: [place] 00 Medical Branch AMITIZA 24 2020-0 Yes TK 1 C PO Un ally mcg capsule 7-06 BID ity of 00:00: [place] 00 Medical Branch XIFAXAN 550 2020-0 Yes Univer s mg tablet 5-14 ity of 00:00: [place] 00 Medical Branch XIFAXAN 550 2020-0 Yes as needed. Univers mg tablet 5-14 ity of 00:00: [place] 00 Medical Branch XIFAXAN 550 2020-0 Yes as needed. Univers mg tablet 5-14 ity of 00:00: [place] 00 Medical Branch XIFAXAN 550 2020-0 Yes as needed. Univers mg tablet 5-14 ity of 00:00: Medical Branch insulin 2020-0 Yes Uncontrolle Take 50 Univers regular 4-21 [...] Medical moncho type evening. Branch atorvastati Yes [id number] 40mg Take 1 Univers n 40 mg 5-28 tablet by ity of tablet 00:00: mouth [place] 00 every Medical evening. Branch atorvastati Yes [id number] 40mg Take 1 Univers n 40 mg 5-28 tablet by ity of tablet 00:00: mouth [place] 00 every Medical evening. Branch atorvastati Yes [id number] 40mg Take 1 Univers n 40 mg [...] 00 daily. Medical Branch Cholecalcif 2017-11 Yes [id number] Take 1 Un ally alayna, 0-01 capsule by ity of Vitamin D3, 00:00: mouth [place] 50,000 unit 00 weekly. Medic al capsule Branch Cholecalcif 2017-11 Yes [id number] Take 1 Un ally alayna, 0-01 capsule by ity of Vitamin D3, 00:00: mouth [place] 50,000 unit 00 weekly. Medic al capsule Branch Cholecalcif 2017-11 Yes [id number] Take 1 Un ally alayna, 0-01 capsule by ity of Vitamin D3, 00:00: mouth [place] 50,000 unit 00 weekly. Medic al capsule Branch Cholecalcif 2017-11 Yes [id number] Take 1 Un ally alayna, 0-01 capsule [...] Shortness of Breath. hydrochloro hydrochloro No hydrochlor [facility] thiazide thiazide othiazide Fa davida 12.5 mg 12.5 mg 12.5 mg Practi c capsule capsule capsule e TAKE 1 TAKE 1 TAKE 1 CAPSULE BY CAPSULE BY CAPSULE BY MOUTH DAILY MOUTH DAILY MOUTH DAILY hydrocodone hydrocodone No hydrocodon [facility] 7.5 7.5 e 7.5 Family mg-acetamin [...] MEALS TWICE DAILY WITH MEALS ipratropium [facility]ropium [facility] bromide bromide m bromide Fami ly 0.02 % 0.02 % 0.02 % Practic solution solution solution e for for for inhalation inhalation inhalation lisinopril lisinopril No lisinopril [facility] 40 mg 40 mg 40 mg Family tablet TAKE tablet TAKE tablet Practic 1/2 TABLET 1/2 TABLET TAKE 1/2 e BY MOUTH BY MOUTH TABLET BY TWICE DAILY TWICE DAILY MOUTH TWICE DAILY mesalamine mesalamine No mesalamine [facility] ER 0.375 ER 0.375 ER 0.375 Fam ramses gram gram gram Practic capsule,ext capsule,ext capsule,ex e ended ended tended release 24 release 24 release 24 hr TAKE 4 hr TAKE 4 hr TAKE 4 CAPSULES BY CAPSULES BY CAPSULES MOUTH DAILY MOUTH DAILY BY MOUTH DAILY metformin metformin No metformin [facility] 1,000 mg 1,000 mg 1,000 mg Fam ramses tablet TAKE tablet TAKE tablet Practic 1 TABLET BY 1 TABLET BY TAKE 1 e MOUTH TWICE MOUTH TWICE TABLET BY DAILY WITH DAILY WITH MOUTH MEALS MEALS TWICE DAILY WITH MEALS metoprolol metoprolol No metoprolol [facility] tartrate tartrate tartrate Fam ramses 100 [...] TABLET BY MOUTH DAILY nitroglycer [facility]glycer [facility] mg in 0.4 mg rin [...] gauge mL 30 Practic x 16" x 516" gauge x e syringe USE syringe USE 03/16" TWICE DAILY TWICE DAILY syringe USE TWICE [...] NEEDED FOR INSOMNIA albuterol albuterol No albuterol [facility] sulfate 2.5 sulfate 2.5 sulfate Family mg/3 mL mg/3 mL 2.5 mg/3 Pract ic (0.083 %) (0.083 %) mL (0.083 e solution solution %) for for solution nebulizatio nebulizatio for n n nebulizati on albuterol albuterol No albuterol [facility] sulfate HFA sulfate HFA sulfate Family [...] NEEDED FOR ANXIETY amlodipine amlodipine No amlodipine [facility] 5 mg tablet 5 mg tablet 5 mg F amily TAKE 1 TAKE 1 tablet Practic TABLET BY TABLET BY TAKE 1 e MOUTH EVERY MOUTH EVERY TABLET BY DAY DAY MOUTH EVERY DAY atorvastati atorvastati No atorvastat [facility] n 20 mg n 20 mg [...] gauge mL 31 e x 1564" x 15" gauge x USE 1 USE 1 " USE SYRINGE SYRINGE 1 SYRINGE TWICE DAILY TWICE DAILY TWICE WITH MEALS. WITH MEALS. DAILY WITH MEALS. BD [place] 2nd BD [place] 2nd No BD [place] Gen Pen Gen Pen 2nd Gen Family Needle 32 Needle 32 Pen Needle Practic gauge x gauge x 32 gauge x e 532" USE 32" USE 5" USE TWICE DAILY TWICE DAILY TWICE DAILY clonidine clonidine No clonidine [facility] HCl 0.2 mg HCl 0.2 mg HCl 0.2 mg Family tablet TAKE tablet TAKE tablet Practic 1 TABLET BY 1 TABLET BY TAKE 1 e MOUTH THREE MOUTH THREE TABLET BY TIMES DAILY TIMES DAILY MOUTH THREE TIMES DAILY colchicine colchicine No colchicine [facility] 0.6 mg 0.6 mg 0.6 mg Family [...] ONSET OF DIARRHEA cyclobenzap cyclobenzap No cyclobenza [facility] rine 10 mg rine 10 mg [...] OR EAR PAIN diclofenac diclofenac No diclofenac [facility] 1 % topical 1 % topical 1 % F amily gel APPLY gel APPLY topical Pr actic TO THE TO THE gel APPLY e AFFECTED AFFECTED TO THE AREA FOUR AREA FOUR AFFECTED TIMES DAILY TIMES DAILY AREA FOUR TIMES DAILY diclofenac diclofenac No diclofenac [facility] sodium 75 sodium 75 sodium 75 Family mg mg mg Practic tablet,artem tablet,artem tablet,del e yed release yed release ayed TAKE 1 TAKE 1 release TABLET BY TABLET BY TAKE 1 MOUTH TWICE MOUTH TWICE TABLET BY DAILY WITH DAILY WITH MOUTH MEALS MEALS TWICE DAILY WITH MEALS dicyclomine dicyclomine No dicyclomin [facility] 10 mg 10 mg e 10 mg Family capsule capsule capsule Practi c TAKE 1 TAKE 1 TAKE 1 e CAPSULE BY CAPSULE BY CAPSULE BY MOUTH EVERY MOUTH EVERY MOUTH 8 HOURS 8 HOURS EVERY 8 HOURS gabapentin gabapentin No gabapentin [facility] 600 mg 600 mg 600 mg [...] SKIN EVERY EVENING hydralazine hydralazine No hydralazin [facility] 100 mg 100 mg e 100 mg Family tablet TAKE tablet TAKE tablet Practic 1 TABLET BY 1 TABLET BY TAKE 1 e MOUTH THREE MOUTH THREE TABLET BY TIMES DAILY TIMES DAILY MOUTH THREE TIMES DAILY Immunizations Ordered Filled Immunization Date Status Comments [facility] e Immunization Name Name SARS-COV-2 COVID-19 2021-07-11 Completed Unive rsity of MODERNA VACCINE 00:00:00 [facility] SARS-COV-2 COVID-19 2021-07-11 Completed Unive rsity of MODERNA VACCINE 00:00:00 [facility] [facility] SARS-COV-2 COVID-19 2021-07-11 Completed Unive rsity of MODERNA VACCINE 00:00:00 [facility] SARS-COV-2 COVID-19 2021-01-01 Completed Unive rsity of MODERNA VACCINE 00:00:00 [facility] SARS-COV-2 COVID-19 2021-01-01 Completed Unive rsity of MODERNA VACCINE 00:00:00 [facility] SARS-COV-2 COVID-19 2021-01-01 Completed Unive rsity of MODERNA VACCINE 00:00:00 [facility] SARS-COV-2 COVID-19 2021-01-01 Completed Unive rsity of MODERNA VACCINE 00:00:00 [facility] Branch SARS-COV-2 COVID-19 2020-12-03 Completed Unive rsity of MODERNA VACCINE 00:00:00 [facility] SARS-COV-2 COVID-19 2020-12-03 Completed Unive rsity of MODERNA VACCINE 00:00:00 [facility] SARS-COV-2 COVID-19 2020-12-03 Completed Unive rsity of MODERNA VACCINE 00:00:00 [facility] SARS-COV-2 COVID-19 2020-12-03 Completed Unive rsity of MODERNA VACCINE 00:00:00 [facility] Influenza Virus 2020-11-13 Completed Universit y of Vaccine Quad .5 mL 00:00:00 [facility] 6+ [place] Branch Influenza Virus 2020-11-13 Completed Universit y of Vaccine Quad .5 mL 00:00:00 [facility] 6+ MO Branch Influenza Virus 2020-11-13 Completed Universit y of Vaccine Quad .5 mL 00:00:00 [facility] 6+ MO Branch Influenza Virus 2020-11-13 Completed Universit y of Vaccine Quad .5 mL 00:00:00 [facility] 6+ MO Branch Vital Signs Vital Name [...] 133 mm[Hg] Univer sity of pressure [facility] Diastolic blood 2021-12-18 21:40:00 68 mm[Hg] Unive rsity of pressure [facility] Heart rate 2021-12-18 21:40:00 88 /min Universi ty [facility] Body height 2021-12-18 21:40:00 160 cm Universi ty of [facility] Body weight 2021-12-18 21:40:00 152.273 kg Universi ty [facility] BMI 2021-12-18 21:40:00 59.47 kg/m2 Universi ty [facility] Oxygen saturation in 2021-12-18 21:40:00 93 /min [facility] blood by [facility] Pulse oximetry Branch Systolic blood 2021-11-06 19:35:00 132 mm[Hg] [facility] pressure Medicine Diastolic blood 2021-11-06 19:35:00 69 mm[Hg] [facility] Heart rate 2021-11-06 19:35:00 93 /min [facility] Body temperature 2021-11-06 19:35:00 36 Pat [facility] Respiratory rate 2021-11-06 19:35:00 18 /min [facility] Body height 2021-11-06 19:35:00 160 cm [facility] Body weight 2021-11-06 19:35:00 151.32 kg [facility] BMI 2021-11-06 19:35:00 59.09 kg/m2 [facility] BP Diastolic 2021-08-21 00:00:00 89 mm[Hg] [facility] Height 2021-08-21 00:00:00 63 [in_i] [facility] BMI (Body Mass 2021-08-21 00:00:00 58.1 kg/m2 [facility] Family Index) Practice BP Systolic 2021-08-21 00:00:00 131 mm[Hg] [facility] Body Weight 2021-08-21 00:00:00 328 [lb_av] [facility] Procedures Procedure Date / Time Performing Clinician Source Performed PAIN MANAGEMENT 2021-02-12 05:01:00 Doctor Unassigned, No Univer daysi david [place] AGREEMENT & INFORMED Name Medical Bra nch CONSENT [facility] Procedure on Shoulder [facility] Fa davida Practice Maintenance of Gastric [place] F [facility] Gallbladder Surgery [facility] F[facility] Appendectomy [facility] Family Practice Plan of Care Planned Activity Planned Date Details Comments Source Future Scheduled 2021-11-18 Screening for [facility] Test 09:34:08 malignant neoplasm of of Med icine colon (procedure) [code = 082377103] Future Scheduled 2021-11-18 Screening for [facility] Col lege Test 09:34:08 malignant neoplasm of of Med icine breast (procedure) [code = 594864559] Future Scheduled 2021-11-18 TETANUS SHOT (ADULT) [employer] Test 09:34:08 [code = TETANUS SHOT of Medi cine (ADULT)] Future Scheduled 2021-11-18 BMI FOLLOW UP PLAN [employer] Test 09:34:08 [code = BMI FOLLOW UP of Med icine PLAN] Future Scheduled 2021-11-18 Hepatitis C screening [employer] Test 09:34:08 (procedure) [code = of Medic ine 477124462] Future Scheduled 2021-11-18 Human immunodeficiency [employer] Test 09:34:08 virus screening of Medicine (procedure) [code = 300096983] Future Scheduled 2021-11-18 Screening for [employer] Test 09:34:08 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) [code = 684718736] Future Scheduled 2021-11-18 MEDICARE AWV (Initial) [employer] Test 09:34:08 [code = MEDICARE AWV of Medi cine (Initial)] Future Scheduled 2021-11-18 ZOSTER VACCINE (1 of [employer] Test 09:34:08 2) [code = ZOSTER of Medicin e VACCINE (1 of 2)] Future Scheduled 2021-11-18 FLU VACCINE > 6 MONTHS [employer] Test 09:34:08 [code = FLU VACCINE > of Med icine 6 MONTHS] Future Scheduled 2021-11-13 Depression screening Uni versity of Test 00:00:00 (procedure) [code = [place] Me dical 113935038] Branch Future Scheduled 2021-11-06 ANOREC MANOM AND 1 Occurrences [facility] Test 14:07:12 EMG-GI DEPT [code = starting of Medic ine NOCPT] 11/06/2021 until 05/06/2022 Future Scheduled 2021-11-06 EGD W/MAC - GI DEPT 1 Occurrences [facility] Test 14:07:11 [code = 26510] starting of Medicine 11/06/2021 until 05/06/2022 Future Scheduled 2021-11-06 COLONOSCOPY W MAC GI 1 Occurrences [facility] Test 14:07:11 DEPT [code = 97258] starting of Medic ine 11/06/2021 until 05/06/2022 Future Scheduled 2020-12-28 Creatinine measurement U niversity of Test 00:00:00 (procedure) [code = [place] Me dical 23546408] Branch Future Scheduled 2020-12-28 Calculated low density U niversity of Test 00:00:00 lipoprotein [facility] [place] cholesterol level Branch (procedure) [code = 354001805] Future Scheduled 2020-06-27 Hemoglobin A1c Universit y of Test 00:00:00 measurement [facility] [place] (procedure) [code = Branch 52390576] Future Scheduled 2020-04-18 Diabetic foot University of Test 00:00:00 examination [facility] [place] (regime/therapy) [code Bran h = 012923107] Future Scheduled 2019-09-16 Examination of retina Un iversity of Test 00:00:00 (procedure) [code = [place] Me dical 622465556] Branch Future Scheduled 2017 Screening for occult Uni versity of Test 00:00:00 blood in feces [facility] [place] (procedure) [code = Branch 746191100] Future Scheduled 2017 Stool DNA-based Universi ty of Test 00:00:00 colorectal cancer [facility] screening (procedure) Branch [code = 030656982395392] Future Scheduled 2017 Flexible fiberoptic Univ ersity of Test 00:00:00 sigmoidoscopy [facility] [place] (procedure) [code = Branch 47506965] Future Scheduled 2017 Screening for University of Test 00:00:00 malignant neoplasm of [place] [facility] colon (procedure) Branch [code = 219504573] Future Scheduled 2017 Screening for University of Test 00:00:00 malignant neoplasm of [facility] colon (procedure) Branch [code = 503941020] Future Scheduled 2017 Zoster Recombinant Unive rsity of Test 00:00:00 Vaccine (SHINGRIX) (1 [place] [facility] of 2) [code = Zoster Branch Recombinant Vaccine (SHINGRIX) (1 of 2)] Future Scheduled 2007 Screening for University of Test 00:00:00 malignant neoplasm of [place] [facility] breast (procedure) Branch [code = 284980553] Future Scheduled 1988 Screening for University of Test 00:00:00 malignant neoplasm of [place] [facility] cervix (procedure) Branch [code = 188111020] Future Scheduled 1986 DTaP,Tdap,and Td Univers ity of Test 00:00:00 Vaccines (1 - Tdap) [place] Me dical [code = DTaP,Tdap,and Branch Td Vaccines (1 - Tdap)] Future Scheduled 1977 Microalbumin University of Test 00:00:00 measurement, urine, [place] Me [facility]ical quantitative Branch (procedure) [code = 928186960] Encounters Start End Encounter Admission Attending Care Care Encounter Source Date/Time Date/Time Type Type Clinicians Facility Department ID 2020-08-22 Inpatient Tapan Martin [facility] [id number] [facility] 11:00:00 [id number] [facility] 2019-12-13 Inpatient Kaur, [facility]O [id number] [facility] 07:00:00 Zacarias [id number] [facility] 2019-12-11 Inpatient Kaur, [facility] [id number] [facility] 07:30:00 Zacarias [facility] 2019-12-07 Inpatient EL Kaur, [facility]O [id number] [facility] 10:00:00 Zacarias [facility] 2022-01-14 2022-01-14 Rohith Sheriff RUST [id number] Univers 00:00:00 00:00:00 [facility] [id number] it y frankie LEE [id number] Frankie as SEAN [phone] Me dical NAL 044 Branch OFFICE BUILDING ONE 2022-01-09 2022-01-09 Outpatient JAYESH WISE [facility] [id number] [facility] 15:12:14 15:12:14 [facility] 2022-01-09 2022-01-09 Outpatient JAYESH WISE [facility] [id number] [facility] 15:10:12 15:10:12 [facility] [employer] [facility] 2022-01-09 2022-01-09 Outpatient KYLAH WISE [facility] [id number] [facility] 07:39:00 14:08:00 DEWAYNE 2022-01-08 2022-01-08 Outpatient [facility] [id number] SLE 12:18:15 23:59:00 2021-12-18 2021-12-18 [facility] [id number] Univers 15:45:00 16:15:00 Visit [facility] [id number] it y frankie [place] [id number] Frankie as JAVIER?BLEA [phone] [address] OFFICE [facility] 2021-12-18 2021-12-18 [facility] [id number] Univers 15:45[facility] 2021-12-04 2021-12-04 Outpatient KYLAH WISE [facility] Surgery [id number] SLE 08:54:00 10:51:00 DEWAYNE 2021-11-06 2021-11-06 Office JAYESH WISE [id number] [facility] 13:24:51 16:22:30 Visit DEWAYNE AMBULATOR [id number] College Y 0.2.7.2.686 [id number] [facility] patsy 325 e 2021-11-01 2021-11-01 Outpatient Aguilar_M VFP VFP [id number] [facility] 02:58:00 02:58:00 [id number] Family Practic e 2021-10-11 2021-10-11 Outpatient Aguilar_M VFP VFP [id number] [facility]20 [facility] 06:17:00 06:17:00 [id number] Family Practic e 2021-10-03 2021-10-03 Outpatient Aguilar_M VFP VFP [id number] [place] [address] 05:34:00 05:34:00 Family Practic e 2021-08-21 2021-08-21 Outpatient Aglillylar_M VFP VFP [id number] 03:04:00 03:04:00 [id number] Family Practic e 2021-08-21 2021-08-21 Yousuf VFP [place] - [id number] V illage 00:00:00 00:00:00 [facility] Family Mack, Medical - Pract brando MD: [address]Clea e [facility] 3, [place] [address] , Ph. 2021-08-20 2021-08-20 Outpatient Alvarez_R VFP [facility] [id number] [place] [address] 04:30:00 04:30:00 Family Practic e 2021-03-26 2021-03-26 [facility] [id number] 00:00:00 00:00:00 [facility] [id number] Dana 4.2.7.2.686 Professio [phone] nal 044 Office Building One 2021-03-25 2021-03-25 [facility] [id number] 00:00:00 00:00:00 [facility] [id number] Dana [id number] Professio [phone] nal [facility] Office Building One 2021-03-18 2021-03-18 Telephone [facility] [id number] 00:00:00 00:00:00 Randall Dana [id number] [place] 4.2.7.2.686 Professio [phone] [place] [address] Building 2021-03-13 2021-03-13 Telephone [facility] [id number] 00:00:00 00:00:00 [facility] [id number] Dana [id number] Professio [phone] nal [facility] Office Building One 2020-08-23 2020-08-23 Outpatient Tapan Martin [facility] LA4 [facility] 15:14:00 15:14:00 [id number] [facility] Results Test Description Test Time Test Comments Results Result Comments Source TISSUE EXAM 2022-01-12 Surgical Pathology 18:24:44 Report Case: [id number] Authorizing Provider: Dewayne Wise MD Collected: 01/09/2022 11:31 AM Ordering Location: [facility] Endoscopy Received: 01/09/2022 03:51 PM Services Pathologist: [...] ROUTINE STAINS Signing Pathologist Direct Phone Line: [phone] naima signed by Evelin Wharton MD on 01/12/2022 at 6:24 [id number] geal reflux disease, polyp of colonA. Polyp, [...] Reference Range Interpretation Comme nts POC-GLUCOSE METER (AccuVein) 133 mg/dL 70-110 H : [facility] AT [facility] [address] [facility] (test code = 1538) [place] [address]: Director Sports/Techni miguelina ID = [id number] for Marybel Earl POCT-GLUCOSE [id number] 10:12:16 Test Item Value Reference Range Interpretation Comments POC-GLUCOSE METER 135 mg/dL 70-110 H : TESTED A T [facility] 6720 (AccuVein) (test code = MIRNA [facility], 1538) [address]: Director Sports/Techni miguelina ID = [id number] for HOLLY PINAKYLAHMAYELA SARS-COV2/RT-PCR ([facility])2022-01-09 09:03:44 Test Item Value Reference Range Interpretation Comments SARS-COV2/RT-PCR Negative Negative The SARS-Co V-2 target (test code = nucleic acids a re not 2874238) detected in thi s specimen. Negative result s do not preclude SARS-C oV-2 infection and s hould not be used as the kaye e basis for patient managem ent decisions. Nega tive results must be combine d with clinical observ ations, patient history , and epidemiological information. A false negativ e result may occur if a spec imen is improperly na ected, transported or handled. This SARS CoV-2 [...] revoked sooner. Fact Sheet for Healthcare Providers: https://www.Taquilla/Documents/Xpert%20Xpress%20SARS%20CoV-2/Fact%20Sheets/3023802%20SARS-COV -2%20HEALTHCARE%20PROVIDERS%20FACT%20SHEET.pdf Fact Sheet for Healthcare Patients: https://www.DoctorBase/Documents/Xpert %20Xpress%20SARS%20CoV-2/Fact%20Sheets/3023801%09SAYF-LRL-9%20PATIENT%20FACT%20 SHEET.pziTFHC9738-72-49 14:57:00 Test Item Value Reference Range Interpretation Comments SURG (test code = SURG) RUN DATE: 08/26/20 [facility] PAGE 1 RUN TIME: 1457 Specimen Inquiry RUN USER: INTERFACE PATIENT: PEPE MACK LOC: ANDI U #: [id number] AGE/SX: 55/F ROOM: RE08/23/20REG DR: Tapan Harper MD : 69 BED: DIS: STATUS: DEP SDC TLOC: SPEC #: [id number] RECD: 08/23/20 STATUS: KRISTIN RELang #: [id number] AN: 08/23/20 [facility] DR: Tapan Harper MD ENTERED: 08/23/20 SP TYPE: SURG OTHR DR: Trent Camp DO ORDERED: SURG PATH LVL 02/01 COPIES TO: Trent Camp DO [address] [place], [place] [address] Tapan Harper MD [address] [place], [place] [address] HISTOLOGY: TISSUE ID BLK PCS DIANE LEV [...] - R10.84; K59.00 CPT CODES CPT CODE(S): 93616A5 , , , , , , FINAL DIAGNOSIS A. Colon, right, biopsy: COLONIC MUCOSA WITH NO PATHOLOGIC DIAGNOSIS B. Colon, mid, biopsy: COLONIC MUCOSA WITH NO PATHOLOGIC DIAGNOSIS CONTINUED ON NEXT PAGE RUN DATE: 08/26/20 [facility] [place] [facility] - LAB PAGE 2 RUN TIME: 1457 Specimen Inquiry RUN USER: INTERFACE SPEC #: [facility]:[id number] PATIENT: PEPE MACK #[id number] (Continued) FINAL DIAGNOSIS (Continued) C. Colon, left, [...] all as C. ba/nr Grossing performed at [facility] Pathology, [address], [address], [place], [place] [address]. Skeet Operator: Leeroy Jimenes M.D. MICROSCOPIC DESCRIPTION A. Right [...] 08/26/20 1457 END OF REPORT GLUCOSE BEDSIDE [id number] 08:29:00 Test Item Value Reference Range Interpretation Comments GLUCOSE BEDSIDE TESTING (test code 156 mg/dL 70-110 H = GLUBED) BASIC METABOLIC [id number] 12:40:00 Test Item Value Reference Range Interpretation [...] CA) 9.0 MG/DL 8.5-10.1 N BASIC METABOLIC [id number] 12:37:00 Test Item Value Reference Range Interpretation [...] 9.0 MG/DL 8.5-10.1 N COVID 19 INHOUSE [id number] 12:37:00 Test Item Value Reference Range Interpretation Comments COVID 19 INHOUSE AG NEGATIVE Negative Per manu facturer, (test code = negative result s should [id number]) be treated aspr esumptive and, if inconsi [...] symptoms co nsistent with COVID-19. CBC W/AUTO [id number] 12:23:00 Test Item Value Reference Range Interpretation [...] REQUIRED (test code NO DIFF/SCN CRITERIA = SILVER) [id number] 15:34:00 RUN DATE: 12/13/19 [facility] PAGE 1 RUN TIME: 1535 Specimen Inquiry RUN USER: INTERFACE PATIENT: PEPE MACK LOC: GLADYS U #: [id number] AGE/SX: 54/F ROOM: RE12/11/[facility] DR: Zacarias Kaur MD : 69 BED: DIS: STATUS: DEP [facility] TLOC: SPEC #: [id number] RECD: 12/11/19 STATUS: KRISTIN RELang #: [id number] AN: 12/11/[address] [facility] DR: Zacarias Kaur MD ENTERED: 12/11/19 SP TYPE: SURG OTHR DR: Trent Camp DO ORDERED: SURG PATH LVL 01/31 COPIES TO: Trent Camp DO [address] [place] [address] Zacarias Kaur MD [address] [place] [address] HISTOLOGY: TISSUE ID BLK PCS DIANE LEV PROCEDURE DISPOSITION ____ ___ ___ ___ GASTRIC ANTRUM A 1 3 GASTRIC ANTRUM B 1 3 PROCEDURES: SURG PATH LVL 4 (12/11/19-1054) TISSUES: A. GASTRIC ANTRUM - GASTRIC BIOPSY B. GASTRIC ANTRUM - DISTAL GASTRIC BIOPSY CLINICAL HISTORY EPIGASTRIC PAIN -R10.13; NAUSEA -R11.0; VOMITING -R11.10 CPT CODES CPT CODE(S): 00904U4 , , , , , , FINAL DIAGNOSIS A. Stomach, biopsy: MILD CHRONIC GASTRITIS NEGATIVE FORINTESTINAL METAPLASIA, DYSPLASIA, OR MALIGNANCY NEGATIVE FOR HELICOBACTER PYLORI ORGANISMS B. Stomach, distal, biopsy: MILD CHRONIC GASTRITIS NEGATIVE FOR INTESTINAL METAPLASIA, DYSPLASIA, OR MALIGNANCY CONTINUED ON NEXT PAGE RUN DATE: 12/13/19 [facility] PAGE 2 RUN TIME: 1535 Specimen Inquiry RUN USER: INTERFACE SPEC #: [id number] PATIENT: PEPE MACK #[id number] (Continued)---- -------- FINAL DIAGNOSIS (Continued) NEGATIVE FOR HELICOBACTER PYLORI ORGANISMS GROSS DESCRIPTION A. Gastric biopsy. Received in formalin is a vazquez tissue fragment, 0.5 cm, all as A.B. Distal gastric biopsy. Received in formalin is a vazquez tissue fragment, 0.3 cm, all as B. shivam/nr Grossing performed at [facility] Pathology, [address] [place] [address], [address], [place] [address]. Skeet Operator: Leeroy Jimenes M.D. MICROSCOPIC DESCRIPTION A. Gastric [...] 12/13/19 1534 END OF REPORT GLUCOSE BEDSIDE [id number] 06:17:00 Test Item Value Reference Range Interpretation Comments GLUCOSE BEDSIDE TESTING (test code 170 mg/dL 70-110 H = GLUBED) UR HCG [id number] 11:12:00 Test Item Value Reference Range Interpretation Comments UR HCG QUAL (test code = HCGQLU) NEGATIVE NEGATIVE
[2022-01-24 16:49] LABS: Urine Blood Negative (Negative); Urine Glucose 2+ (Negative); Urine Protein Negative (Negative); Urine Specific Gravity 1.025 (1.005-1.030); Urine pH 5.5 (5.0-7.0)
[2022-01-24 17:06] LABS: Absolute Lymphocytes (CBC) 2.8 K/uL (0.7-4.9); Hematocrit 46.3 % (36.0-45.0); Lymphocytes % 31.9 % (15.3-44.8)
[2022-01-24] MEDS ORDERED: ONDANSETRON 4 MG/2 ML VIAL ONE (17:29)
[2022-01-24] MEDS ORDERED: MORPHINE 4 MG/ML SYR ONE (17:29)
--- NOTE | 2022-01-24 17:29 | RAD REPORT ---
EXAM DESCRIPTION: CTAbdomen Pelvis W Contrast - 01/24/2022 5:12 pm CLINICAL HISTORY: ABD PAIN COMPARISON: Abdomen Pelvis W Contrast dated 01/11/2022; Abdomen Pelvis W Contrast dated 10/01/2021 ; Abdomen Pelvis W Contrast dated 06/18/2017; CT ABD PELVIS W CONTRAST dated 03/18/2015 TECHNIQUE: CT of the abdomen and pelvis was performed. All CT scans are performed using dose optimization technique as appropriate and may include automated exposure control or mA/KV adjustment according to patient size. FINDINGS: Lower chest: No acute abnormality. Liver: No acute abnormality or suspicious lesions. Biliary: Cholecystectomy . Stomach: Partial gastrectomy . Duodenum: No significant focal abnormality. Pancreas: No significant abnormality. Spleen: No significant abnormality. Adrenal: No suspicious lesions. Kidney/ureter: No hydronephrosis. No renal calculi. Retroperitoneum: No retroperitoneal adenopathy. Vascular: No aneurysm. Bowel: No significant focal abnormality. Appendectomy. Peritoneum: No ascites or free air. Bladder: Grossly unremarkable. Reproductive: No adnexal masses. Bones: No acute fracture. Other: n/a IMPRESSION: No acute intra-abdominal or pelvic finding. No significant change compared with 01/12/20 22.
[2022-01-24] MEDS ORDERED: NA CHLORIDE 0.9% 1,000 ML ONE (17:30)
[2022-01-24 17:45] LABS: Albumin 3.4 g/dL (3.4-5.0); Bilirubin Total 0.2 mg/dL (0.2-1.0); Protein, Total 7.5 g/dL (6.4-8.2)
[2022-01-24 17:46] LABS: Potassium 3.9 mmol/L (3.5-5.1)
--- NOTE | 2022-01-24 18:54 | EDPHYS ---
Physician Documentation [facility] Name: Maria De Jesus Acosta Age: 56 yrs Sex: Female : 1965 Arrival Date: 01/24/2022 Time: 16:24 Bed 23 Private MD: ED Physician Dominguez Voss HPI: 01/24 17:36 This 56 yrs old Female presents to ER via Wheelchair with complaints of kb Abdominal Pain. 17:36 The patient presents with abdominal pain right lower quadrant. Onset: The kb symptoms/episode began/occurred 2 week(s) ago. The symptoms radiate to the right flank. Associated signs and symptoms: Pertinent positives: nausea, Pertinent negatives: diarrhea, fever, vomiting. The symptoms are described as constant. Modifying factors: The symptoms are alleviated by nothing, the symptoms are aggravated by drinking, food. Severity of pain: At its worst the pain was moderate in the emergency department the pain is unchanged. The patient has experienced similar episodes in the past. The patient has been recently seen by a physician:. Pt reports RLQ abd pain for 2 weeks. States she has been seen here multiple times for same pain and is seeing Dr Harper and Natasha for the pain as well, but nothing has been found yet. . Historical: - Allergies: 16:39 Doxycycline; ab2 16:39 metoclopramide HCl; ab2 16:39 Reglan; ab2 16:39 kiwi; ab2 16:39 orange juice; ab2 - PMHx: 16:39 Asthma; CHF; Crohn's; COPD; Diabetes - NIDDM; Hypertension; ab2 - Immunization history:: Adult Immunizations up to date. - Social history:: Smoking status: Patient denies any tobacco usage or history of. ROS: 17:35 Constitutional: Negative for fever, chills, and weight loss. kb 17:35 Abdomen/GI: Positive for abdominal pain, nausea, Negative for vomiting, diarrhea. 17:35 All other systems are negative. Exam: 17:36 Constitutional: This is a well developed, well nourished patient who is awake, alert, kb and in no acute distress. Head/Face: Normocephalic, atraumatic. ENT: Moist Mucous membranes Respiratory: Respirations even and unlabored. No increased work of breathing. Talking in full sentences Back: No spinal tenderness. No costovertebral tenderness. Full range of motion. Skin: Warm, dry with normal turgor. Normal color. MS/ Extremity: Pulses equal, no cyanosis. Neurovascular intact. Full, normal range of motion. Neuro: Awake and alert, GCS 15, oriented to person, place, time, and situation. Moves all extremities. Normal gait. Psych: Awake, alert, with orientation to person, place and time. Behavior, mood, and affect are within normal limits. 17:36 Abdomen/GI: Inspection: obese Bowel sounds: normal, Palpation: soft, in all quadrants, mild abdominal tenderness, in the right lower quadrant. Vital Signs: 16:38 BP 124 / 77; Pulse 74; Resp 20; Temp 97.4; Pulse Ox 93% ; Weight 151.95 kg; Height 5 ab2 ft. 3 in. (160.02 cm); Pain 8/10; 16:56 BP 125 / 80; Pulse 73; Resp 26; Pulse Ox 93% on R/A; ld1 17:55 BP 127 / 65; Pulse 73; Resp 18; Pulse Ox 91% on R/A; ld1 18:51 BP 133 / 98; Pulse 74; Resp 18; Pulse Ox 94% on R/A; ld1 16:38 Body Mass Index 59.34 (151.95 kg, 160.02 cm) ab2 MDM: 16:41 Patient medically screened. kb 17:36 Data reviewed: vital signs, nurses notes. Data interpreted: Pulse oximetry: on room air kb is 93 %. Interpretation: normal. 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 18:53 ED course: Pt has appt scheduled for follow up with GI. Nontoxic in appearance, kb tolerating po. 01/24 16:42 Order name: CBC with Diff; Complete Time: 17:07 kb 01/24 16:42 Order name: CMP; Complete Time: 17:50 kb 01/24 16:42 Order name: Lipase; Complete Time: 17:50 kb 01/24 16:42 Order name: CT Abd/Pelvis - IV Contrast Only; Complete Time: 17:29 kb 01/24 16:50 Order name: Urine Dipstick-Ancillary; Complete Time: 16:51 EDMT 01/24 16:42 Order name: IV Saline Lock; Complete Time: 16:56 kb 01/24 16:42 Order name: Labs collected and sent; Complete Time: 16:56 kb 01/24 16:42 Order name: Urine Dipstick-Ancillary (obtain specimen); Complete Time: 16:48 kb Administered Medications: 17:30 Drug: morphine 4 mg Route: IVP; Site: right antecubital; ld1 17:30 Drug: Zofran (Ondansetron) 4 mg Route: IVP; Site: right antecubital; ld1 17:30 Drug: NS 0.9% 1000 ml Route: IV; Rate: 1000 ml; Site: right antecubital; ld1 Disposition Summary: 01/24/22 18:53 Discharge Ordered Location: Home kb Condition: Stable kb Diagnosis - Abdominal pain, unspecified kb Followup: kb - With: Emergency Department - When: As needed - Reason: Worsening of condition Followup: kb - With: Private Physician - When: 2 - 3 days - Reason: Recheck today's complaints, Continuance of care, Re-evaluation by your physician Discharge Instructions: - Discharge Summary Sheet kb - Abdominal Pain, Adult, [id number] kb Forms: - Medication Reconciliation Form kb - Thank You Letter kb - Antibiotic Education kb - Prescription Opioid Use kb Addendum: 01/28/2022 07:09 Co-signature as Attending Physician, Dominguez Voss MD I agree with the assessment and c garcia plan of care. Signatures: Dispatcher [employer] EDDaisy Brito, ELECTRICAL TESTER BATTERY-C ELECTRICAL TESTER BATTERY-Dominguez Kapoor MD MD cha Dibbern, Lauren, RN RN ld1 Nj Avila2 Corrections: (The following items were deleted from the chart) 01/24 17:36 17:35 Abdomen/GI: Positive for abdominal pain, kb kb
--- NOTE | 2022-01-24 18:54 | ER ---
Nurse's Notes [facility] Name: Maria De Jesus Acosta Age: 56 yrs Sex: Female : 1965 Arrival Date: 01/24/2022 Time: 16:24 Bed 23 Private MD: Diagnosis: Abdominal pain, unspecified Presentation: 01/24 16:38 Chief complaint: Patient states: "im having the same issue as before. Im having real ab2 bad pain on the right side of my stomach." Pt c/o nausea. Pt denies v/d. Coronavirus screen: Vaccine status: Patient reports receiving the 2nd dose of the covid vaccine. Client denies travel out of the [place] in the last 14 days. At this time, the client does not indicate any symptoms associated with coronavirus-19. Ebola Screen: Patient negative for fever greater than or equal to 101.5 degrees Fahrenheit, and additional compatible Ebola Virus Disease symptoms Patient denies exposure to infectious person. Patient denies travel to an Ebola-affected area in the 21 days before illness onset. No symptoms or risks identified at this time. Initial Sepsis Screen: Does the patient meet any 2 criteria? No. Patient's initial sepsis screen is negative. Does the patient have a suspected source of infection? No. Patient's initial sepsis screen is negative. Risk Assessment: Do you want to hurt yourself or someone else? Patient reports no desire to harm self or others. Onset of symptoms is unknown. 16:38 Method Of Arrival: Wheelchair ab2 16:38 Acuity: EMERALD 3 ab2 Triage Assessment: 16:40 General: Appears in no apparent distress. uncomfortable, Behavior is calm, cooperative, ab2 appropriate for age. Pain: Complains of pain in right upper quadrant and right lower quadrant. GI: Reports nausea. Historical: - Allergies: 16:39 Doxycycline; ab2 16:39 metoclopramide HCl; ab2 16:39 Reglan; ab2 16:39 kiwi; ab2 16:39 orange juice; ab2 - PMHx: 16:39 Asthma; CHF; Crohn's; COPD; Diabetes - NIDDM; Hypertension; ab2 - Immunization history:: Adult Immunizations up to date. - Social history:: Smoking status: Patient denies any tobacco usage or history of. Screenin:00 Abuse screen: Denies threats or abuse. Denies injuries from another. Nutritional ld1 screening: No deficits noted. Tuberculosis screening: No symptoms or risk factors identified. Fall Risk None identified. Assessment: 16:56 General: Appears in no apparent distress. comfortable, Behavior is calm, cooperative, ld1 appropriate for age. Pain: Complains of pain in right upper quadrant and right lower quadrant Pain does not radiate. Pain currently is 8 out of 10 on a pain scale. Quality of pain is described as throbbing, Pain began 2-3 days ago. Neuro: Level of Consciousness is awake, alert, obeys commands, Oriented to person, place, time, situation. Cardiovascular: Capillary refill < 3 seconds Patient's skin is warm and dry. Respiratory: Airway is patent Respiratory effort is even, labored, Respiratory pattern is regular, symmetrical. GI: Abdomen is obese, Bowel sounds present X 4 quads. Abd is soft Abdomen is tender to palpation in right upper quadrant and right lower quadrant. : No signs and/or symptoms were reported regarding the genitourinary system. EENT: No signs and/or symptoms were reported regarding the EENT system. Derm: No signs and/or symptoms reported regarding the dermatologic system. Musculoskeletal: No signs and/or symptoms reported regarding the musculoskeletal system. 17:55 Reassessment: Patient appears in no apparent distress at this time. Patient and/or ld1 family updated on plan of care and expected duration. Pain level reassessed. Vital Signs: 16:38 BP 124 / 77; Pulse 74; Resp 20; Temp 97.4; Pulse Ox 93% ; Weight 151.95 kg; Height 5 ab2 ft. 3 in. (160.02 cm); Pain 8/10; 16:56 BP 125 / 80; Pulse 73; Resp 26; Pulse Ox 93% on R/A; ld1 17:55 BP 127 / 65; Pulse 73; Resp 18; Pulse Ox 91% on R/A; ld1 18:51 BP 133 / 98; Pulse 74; Resp 18; Pulse Ox 94% on R/A; ld1 16:38 Body Mass Index 59.34 (151.95 kg, 160.02 cm) ab2 ED Course: 16:24 Patient arrived in ED. rg4 16:38 Daisy Kay FNP-C is PHCP. kb 16:38 Dominguez Voss MD is Attending Physician. kb 16:39 Triage completed. ab2 16:39 Arm band placed on right wrist. ab2 16:40 Winter Parkinson, RN is Primary Nurse. ld1 16:56 Patient has correct armband on for positive identification. Placed in gown. Bed in low ld1 position. Call light in reach. Side rails up X2. bus driver/monitor on. Pulse ox on. NIBP on. Door closed. Noise minimized. Warm blanket given. 16:56 No provider procedures requiring assistance completed. Inserted saline lock: 20 gauge ld1 in right antecubital area, using aseptic technique. Blood collected. 17:14 CT Abd/Pelvis - IV Contrast Only In Process Unspecified. EDMS 19:00 IV discontinued, intact, bleeding controlled, No redness/swelling at site. ld1 Administered Medications: 17:30 Drug: morphine 4 mg Route: IVP; Site: right antecubital; ld1 17:30 Drug: Zofran (Ondansetron) 4 mg Route: IVP; Site: right antecubital; ld1 17:30 Drug: NS 0.9% 1000 ml Route: IV; Rate: 1000 ml; Site: right antecubital; ld1 Outcome: 18:53 Discharge ordered by MD. kb 19:00 Discharged to home ambulatory, via wheelchair, with family. ld1 19:00 Condition: stable 19:00 Discharge instructions given to patient, Instructed on discharge instructions, follow up and referral plans. Demonstrated understanding of instructions, follow-up care. 19:01 Patient left the ED. ld1 Signatures: Dispatcher [employer] EDMS Daisy Kay, FRONT LOADER RESIDENTIAL DRIVER-C FRONT LOADER RESIDENTIAL DRIVER-Blanca Moreland rg4 Winter Parkinson, RN RN ld1 Nj Avila ab2
[2022-01-24 20:23] VITALS: TEMP 97.4
[2022-01-24 20:27] VITALS: BP 133/98; O2SAT 94
== END 2022-01-24 19:01 | disposition home or self-care (01) ==
LOC: ER 16:23
DX: R10.31 Right lower quadrant pain (principal); R11.0 Nausea; I10 Essential (primary) hypertension; E11.9 Type 2 diabetes mellitus without complications; Z88.1 Allergy status to other antibiotic agents; Z88.8 Allergy status to other drugs, medicaments and biological substances; Z91.018 Allergy to other foods
CPT/HCPCS: 85025; 36415; 81003; 83690; 80053; 74177; 96375; 96374; 99284; Q9967; J7030; J2405

== ENCOUNTER 2022-03-03 13:10 | Emergency (ER) | payer OTHER ==
--- OUTSIDE RECORDS SUMMARY | 2022-03-03 13:16 | XMS REPORT | Continuity of Care Document ---
:1965 Author Organization [facility] t Address [address] [place] [address] Care Team Providers Name Role Phone Vickie CAMP Primary Care Physician Unavailable Rosalio Harper Attending Clinician Unavailable Julissa Kaur Attending Clinician Unavailable JAZIEL Attending Clinician Unavailable Jaziel GRIFFIN Attending Clinician Jenny GONZALEZ Attending Clinician Unavailable Jenny Gonzaelz NP Attending Clinician Aguilar_M Attending Clinician Unavailable ALVARO WISE Attending Clinician Unavailable ALVARO WISE Attending Clinician Unavailable Galilea JOY, S Attending Clinician Annette CALERO Attending Clinician Unavailable Alvjoey_R Attending Clinician Unavailable Doctor Unassigned, Name Attending Clinician Unavailable Vickie Camp Admitting Clinician Unavailable Jenny GONZALEZ Admitting Clinician Unavailable Aguilar_M Admitting Clinician Unavailable ALVARO WISE Admitting Clinician Unavailable Alvjoey_R Admitting Clinician Unavailable Payers Payer Name Policy Type Policy Number Effective Date Expiration Date Annette gonzalez [place] [id number] 2010 [place] 00:00:00 [place] [id number] [place] MEDICARE PART A [id number] \\T\\ B - MEDICARE [facility]-MEDICAID - [id number] MEDICAID MEDICARE A B [id number] 2010 00:00:00 MEDICAID [facility] [id number] 2021 00:00:00 Problems Condition Condition Condition Status Onset Resolution [...] 07-28 ity of reflux reflux 00:00: [place] disease disease 00 Medical Branch Type 2 Type 2 Disease Active Univers diabetes diabetes 07-28 ity of mellitus mellitus 00:00: [place] without without 00 Medical complicati complicati Br anch on, with on, with long-term long-term current current use of use of insulin insulin Bariatric Bariatric Disease Active Uni vers surgery surgery 07-28 ity of status status 00:00: [place] [facility] Hyperlipid Hyperlipid Disease Active U nivers emia, emia, 07-28 ity of unspecifie unspecifie [...] ents Source Name Type Date Date Clinician ROSA DRUG Active Unknown-Cmnt Univ ers INGREDI 3- ity of 00:00: [place] 00 Medical Branch Kiwi Propensi Active Unknown - Unive rs ty to See comments 01-25 ity of adverse 00:00: [place] reaction 00 Medical s Van Doxycycl Propensi Active [facility] ine ty to 11-06 [place] adverse 00:00: of reaction 00 Medicin s to e drug Metoclop Propensi Active [facility] ramide ty to 11-06 [place] adverse 00:00: of reaction 00 Medicin s to e drug doxycycl DA Active [facility] 2020-0 [facility] [place] 00:[facility]: d [facility] metoclop DA Active U 2020-0 [facility] ramide 2-06 [place] 00:00: d 00 [facility] [place] doxycycl DA Active U VOMITING 2019-0 [facility] ine 2-06 [place] 00:00: d 00 [facility] [place] metoclop DA Active U UNKNOWN 2020-0 [facility] ramide 2-06 [place] 00:00: d 00 [facility] [place] Propensi Active Nausea Univers ty to and/or 7-11 ity of adverse Vomiting 00:00: [place] reaction 00 Medical s Branch ORANGE DRUG Active N/V Univers INGREDI 7 ity of 00:00: [place] 00 Medical Branch ORANGE Allergy Active Med N\\T\\V [facility] Doxycycl Propensi Active Nausea Univer s ine ty to and/or 3-16 ity of adverse Vomiting 00:00: [place] reaction 00 Medical s Van Metoclop Propensi Active Unknown - Told by Oscar cummings ty to See comments 3-16 anesthesi i ty of Hcl adverse 00:00: ologist [place] reaction 00 that she Medica l s should Branch add to her allergies following a procedure DOXYCYCL DRUG Active N/V Univers INE INGREDI 3-16 ity of 00:00: 00 Medical Branch METOCLOP DRUG Active Unknown-Cmnt Un ally [place] INGREDI 3-16 ity of HCL 00:00: [place] 00 Medical Branch DOXYCYCL Allergy Active High N\\T\\V [facility] METOCLOP Allergy Active High Other [facility] 00:[facility]: Medical 00 [place] Doxycycl Allergy Active [place] ine to Family substanc Practic e e NO KNOWN Allergy Active [facility] ALLERGIE [facility] Social History Social Habit Start Date Stop Date Quantity Comments Source History of tobacco Cigarette Smoker University of use [place] [facility] Exposure to Not sure University of SARS-CoV-2 (event) [place] [facility] History [facility] o f Transport [facility]Med [facility] Tobacco use and 2021-11-06 2021-11-06 Smokeless [facility] Co llege of exposure 00:00:00 00:00:00 tobacco non-user Medicine Alcohol intake 2021-11-06 2021-11-06 Ex-drinker [facility] Col lege of 00:00:00 00:00:00 (finding) Medicine History [facility] Social 2019-08-25 2019-08-25 3 Unive rsity of Connections Phone 00:00:00 00:00:00 [facility] edical Branch History [facility] Social 2019-08-25 2019-08-25 1 Unive rsity of Connections Get 00:00:00 00:00:00 [place] Med ical Together Branch History [facility] Social 2019-08-25 2019-08-25 1 Unive rsity of Connections Advent 00:00:00 00:00:00 [place] [facility] History [facility] Social 2019-08-25 2019-08-25 2 Unive rsity of Connections 00:00:00 00:00:00 [place] Medical Membership Branch History [facility] Social 2019-08-25 2019-08-25 1 Unive rsity of Connections 00:00:00 00:00:00 [place] Medical Meetings Branch History [facility] Social 2019-08-25 2019-08-25 5 Unive rsity of [...] University o f Transport Med 00:00:00 00:00:00 [place] Medic al Branch Tobacco Comment 2019-08-25 2019-08-25 Started at 25- Unive rsity of 00:00:00 00:00:00 end at 42 [place] [facility] Cigarettes smoked 2018-05-10 2018-05-10 Univers ity of current (pack per 00:00:00 00:00:00 [facility] edical ) - Reported Branch Sex [birth year] At [birth year] [facility] llege of 00:00:00 00:00:00 Medicine Smoking Status Start Date Stop Date Source Never smoked tobacco [facility] Former smoker 2018-05-10 00:00:00 2018-05-10 00:00:00 [facility] of [place] [facility] Medications Ordered Filled Start Stop Current Ordering Indication Dosage Frequency Signature Comments Components Source Medication Medication Date Date Medication? Clinician (SIG) Name Name GABAPENTIN Yes [id number] TAKE 1 Univers 600 mg 5-02 TABLET BY ity of tablet 00:00: MOUTH 00 THREE Medical TIMES Branch DAILY GABAPENTIN 2021-0 Yes [id number] TAKE 1 Univers 600 mg 5-02 TABLET BY ity of tablet 00:00: MOUTH [place] 00 THREE Medical TIMES Branch DAILY BD INSULIN Yes [id number] USE 1 U nivers SYRINGE 5-02 SYRINGE ity of U-500 11/02 00:00: TWICE [place] mL 31 gauge 00 DAILY WITH Me dical x 15" MEALS. Branch Syrg gabapentin Yes [id number] 600mg Take 1 Univers 600 mg 4-07 tablet by ity of tablet 00:00: mouth 3 00 (three) Medical times Branch daily. HYDROcodone 2021-0 Yes [id number] 1{tbl} Take 1 Un ally -acetaminop 4-07 tablet by ity of hen 7.5-325 00:00: mouth [place] mg per 00 every 6 Medical tablet (six) Branch hours as needed for Pain. Indication s: chronic pain HYDROcodone 2021-0 Yes [id number] 1{tbl} Take 1 Un ally -acetaminop 4-07 tablet by ity of hen 7.5-325 00:00: mouth [place] mg per 00 every 6 Medical tablet (six) Branch hours as needed for Pain. Indication s: chronic pain HYDROcodone 2021-0 Yes [id number] 1{tbl} Take 1 Un ally -acetaminop 4-07 tablet by ity of hen 7.5-325 00:00: mouth [place] mg per 00 every 6 Medical tablet (six) Branch hours as needed for Pain. Indication s: chronic pain gabapentin 2021-0 2021- No [id number] 600mg Take 1 Univers 600 mg 4-07 05-02 tablet by ity of tablet 00:00: 00:00 mouth 3 [place] 00 :00 (three) Medical times Branch daily. dicyclomine Yes 20mg 20 mg, Univ ers (BENTYL) 3-27 Intramuscu ity o f injection 21:00: lar, QID, [place] as 20 mg 00 First dose Medical on [facility] 01/25/22 at 1600, Until Discontinu ed, Routine sucralfate 2021- No 1g 1 g, Oral, Univers (CARAFATE) 01-25 ONCE, 1 ity o f tablet 1 g 20:30: 19:29 [place] :[place] P[place] Sale To [facility] 01/25/22 at Branch 1530, Routine haloperidol 2021- No 2.5mg 2.5 mg, U nivers lactate 01-25 Intravenou ity o f (HALDOL) 20:30: 19:29 s, ONCE, 1 [place] injection 00 :00 dose, On Medica l 2.5 mg [facility] 01/25/22 at 1530, STAT iopamidol 2021- No [id number] 100mL 100 mL, Univers (ISOVUE 01-25 Intravenou ity o f 370-500 mL) 19:53: 19:54 s, ONCE, 1 [place] injection 00 :00 dose, On Medica l 100 mL [facility] 01/25/22 at 1500, Routine sucralfate 0 Yes [id number] 1g Take 1 Univers 1 gram 3-27 tablet by ity of tablet 00:00: mouth [place] 00 before Medical meals and Branch at bedtime. sucralfate 0 Yes [id number] 1g Take 1 Univers 1 gram 3-27 tablet by ity of tablet 00:00: mouth [place] 00 before Medical meals and Branch at bedtime. sucralfate 2021-0 Yes [id number] 1g Take 1 Univers 1 gram 3-27 tablet by ity of tablet 00:00: mouth [place] 00 before Medical meals and Branch at bedtime. sucralfate 2021-0 Yes [id number] 1g Take 1 Univers 1 gram 3-27 tablet by ity of tablet 00:00: mouth [place] 00 before Medical meals and Branch at bedtime. sucralfate 2021-0 Yes [id number] 1g Take 1 Univers 1 gram 3-27 tablet by ity of tablet 00:00: mouth [place] 00 before Medical meals and Branch at bedtime. HYDRALAZINE 2022-0 Yes [id number] TAKE 1 Univers 100 mg 3-16 TABLET BY ity of tablet 00:00: MOUTH [place] 00 THREE Medical TIMES Branch DAILY HYDRALAZINE 2021-0 Yes [id number] TAKE 1 Univers 100 mg 3-16 TABLET BY ity of tablet 00:00: MOUTH [place] 00 THREE Medical TIMES Branch DAILY HYDRALAZINE 2021-0 Yes [id number] TAKE 1 Univers 100 mg 3-16 TABLET BY ity of tablet 00:00: MOUTH [place] THREE Medical TIMES Branch DAILY HYDRALAZINE 2021-0 Yes [id number] TAKE 1 Univers 100 mg 3-16 TABLET BY ity of tablet 00:00: MOUTH [place] 00 THREE Medical TIMES Branch DAILY HYDRALAZINE 0 Yes [id number] TAKE 1 Univers 100 mg 3-16 TABLET BY ity of tablet 00:00: MOUTH [place] THREE Medical TIMES Branch DAILY HYDRALAZINE 0 Yes [id number] TAKE 1 Univers 100 mg 3-16 TABLET [...] Pain. Indication s: chronic pain HYDROcodone 2021-0 2- No [id number] 1{tbl} Take 1 U nivers -acetaminop 3-08 04-07 tablet by it y of hen 7.5-325 00:00: 00:00 [place] mg per 00 :00 every 6 Medical tablet (six) Branch hours as needed for Pain. Indication s: chronic pain gabapentin 2021-0 Yes [id number] 600mg Take 1 Univers 600 mg 3-07 tablet by ity of tablet 00:00: mouth 3 [place] 00 (three) Medical times Branch daily. gabapentin 2021-0 Yes [id number] 600mg Take 1 Univers 600 mg 3-07 tablet by ity of tablet 00:00: mouth 3 [place] 00 (three) Medical times Branch daily. gabapentin 2021-0 Yes [id number] 600mg Take 1 Univers 600 mg 3-07 tablet by ity of tablet 00:00: mouth 3 [place] 00 (three) Medical times Branch daily. gabapentin 2021-0 2022- No [id number] 600mg Take 1 Univers 600 mg 3-07 04-07 tablet by ity of tablet 00:00: 00:00 mouth 3 [place] 00 :00 (three) Medical times Branch daily. METOPROLOL 0 Yes TAKE 1 Unive rs TARTRATE 2-14 TABLET BY ity of 100 mg 00:00: MOUTH [place] tablet 00 TWICE Medical DAILY Branch HYDRALAZINE 2021-0 Yes [id number] TAKE 1 Univers 100 mg 2-14 TABLET BY ity of tablet 00:00: MOUTH [place] 00 THREE Medical TIMES Branch DAILY METOPROLOL 2021-0 Yes TAKE 1 Unive rs TARTRATE 2-14 TABLET BY ity of 100 mg 00:00: MOUTH [place] tablet 00 TWICE Medical DAILY Branch HYDRALAZINE 2021-0 Yes [id number] TAKE 1 Univers 100 mg 2-14 TABLET BY ity of tablet 00:00: MOUTH [place] 00 THREE Medical TIMES Branch DAILY METOPROLOL 2021-0 Yes TAKE 1 Unive rs TARTRATE 2-14 TABLET BY ity of 100 mg 00:00: MOUTH [place] tablet 00 TWICE Medical DAILY Branch METOPROLOL 2021-0 Yes TAKE 1 Unive rs TARTRATE 2-14 TABLET BY ity of 100 mg 00:00: MOUTH [place] tablet 00 TWICE Medical DAILY Branch METOPROLOL 2021-0 Yes TAKE 1 Unive rs TARTRATE 2-14 TABLET BY ity of 100 mg 00:00: MOUTH [place] tablet 00 TWICE Medical DAILY Branch METOPROLOL 2021-0 Yes TAKE 1 Unive rs TARTRATE 2-14 TABLET BY ity of 100 mg 00:00: MOUTH [place] tablet 00 TWICE Medical DAILY Branch METOPROLOL 2021-0 Yes TAKE 1 Unive rs TARTRATE 2-14 TABLET BY ity of 100 mg 00:00: MOUTH [place] tablet 00 TWICE Medical DAILY Branch METOPROLOL 0 Yes TAKE 1 Unive rs TARTRATE 2-14 TABLET BY ity of 100 mg 00:00: MOUTH [place] tablet 00 TWICE Medical DAILY Branch HYDRALAZINE 2021-0 2021- No [id number] TAKE 1 Univers 100 mg 2-14 03-16 [...] Indication s: chronic pain HYDROCHLORO 2021-0 Yes [id number] 12.5mg TAKE 1 Univers THIAZIDE 1-19 CAPSULE BY ity o f 12.5 mg 00:00: MOUTH [place] capsule 00 DAILY Medical Branch LISINOPRIL 2021-0 Yes [id number] TAKE 1/2 Univers 40 mg 1-19 TABLET BY ity of tablet 00:00: MOUTH [place] 00 TWICE Medical DAILY Branch HYDROCHLORO 2021-0 Yes [id number] 12.5mg TAKE 1 Univers THIAZIDE 1-19 CAPSULE BY ity o f 12.5 mg 00:00: MOUTH [place] capsule 00 DAILY Medical Branch LISINOPRIL 2021-0 Yes [id number] TAKE 1/2 Univers 40 mg 1-19 TABLET BY ity of tablet 00:00: MOUTH [place] 00 TWICE Medical DAILY Branch HYDROCHLORO 2021-0 Yes [id number] 12.5mg TAKE 1 Univers THIAZIDE 1-19 CAPSULE BY ity o f 12.5 mg 00:00: MOUTH [place] capsule 00 DAILY Medical Branch LISINOPRIL 2021-0 Yes [id number] TAKE 1/2 Univers 40 mg 1-19 TABLET BY ity of tablet 00:00: MOUTH [place] 00 TWICE Medical DAILY Branch HYDROCHLORO 2021-0 Yes [id number] 12.5mg TAKE 1 Univers THIAZIDE 1-19 CAPSULE BY ity o f 12.5 mg 00:00: MOUTH [place] capsule 00 DAILY Medical Branch LISINOPRIL 0 Yes [id number] TAKE 1/2 Univers 40 mg 1-19 TABLET BY ity of tablet 00:00: MOUTH [place] TWICE Medical DAILY Branch HYDROCHLORO 2021-0 Yes [id number] 12.5mg TAKE 1 Univers THIAZIDE 1-19 CAPSULE BY ity o f 12.5 mg 00:00: MOUTH [place] capsule 00 DAILY Medical Branch LISINOPRIL 2021-0 Yes [id number] TAKE 1/2 Univers 40 mg 1-19 TABLET BY ity of tablet 00:00: MOUTH [place] TWICE Medical DAILY Branch HYDROCHLORO 0 Yes [id number] 12.5mg TAKE 1 Univers THIAZIDE 1-19 CAPSULE BY ity o f 12.5 mg 00:00: MOUTH [place] capsule 00 DAILY Medical Branch LISINOPRIL 0 Yes [id number] TAKE 1/2 Univers 40 mg 1-19 TABLET BY ity of tablet 00:00: MOUTH TWICE Medical DAILY Branch HYDROCHLORO 0 Yes [id number] 12.5mg TAKE 1 Univers THIAZIDE 1-19 CAPSULE BY ity o f 12.5 mg 00:00: MOUTH [place] capsule 00 DAILY Medical Branch LISINOPRIL 0 Yes [id number] TAKE 1/2 Univers 40 mg 1-19 TABLET BY ity of tablet 00:00: MOUTH [place] TWICE Medical DAILY Branch HYDROCHLORO 2021-0 Yes [id number] 12.5mg TAKE 1 Univers THIAZIDE 1-19 CAPSULE BY ity o f 12.5 mg 00:00: MOUTH [place] capsule 00 DAILY Medical Branch LISINOPRIL 0 Yes [id number] TAKE 1/2 Univers 40 mg 1-19 TABLET BY ity of tablet 00:00: MOUTH [place] TWICE Medical DAILY Branch Prucaloprid 0 Yes [id number] 2mg Take 2 mg [facility] e Succinate 11-06 by mouth [place] ege 2 MG TABS 00:00: daily. of 00 Medicin e PEG-KCl-NaC Yes [id number] [MOVI B aylor l-NaSulf-Na 11-06 PREP] Take [...] NEEDED FOR CHEST PAIN. DICLOFENAC 2020-11 Yes [id number] APPLY TO Univers SODIUM 1 % 2-02 THE ity of gel 00:00: AFFECTED [place] 00 [facility] FOUR Medical TIMES Branch DAILY DICLOFENAC 2020-11 Yes [id number] APPLY TO Univers SODIUM 1 % 2-02 THE ity of gel 00:00: AFFECTED [address] FOUR Medical TIMES Branch DAILY DICLOFENAC 2020-11 Yes [id number] APPLY TO Univers SODIUM 1 % 2-02 THE ity of gel 00:00: AFFECTED [address] FOUR Medical TIMES Branch DAILY DICLOFENAC 2020-11 Yes [id number] APPLY TO Univers SODIUM 1 % 2-02 THE ity of gel 00:00: AFFECTED [place] 00 AREA FOUR Medical TIMES Branch DAILY DICLOFENAC 2020-11 Yes [id number] APPLY TO Univers SODIUM 1 % 2-02 THE ity of gel 00:00: AFFECTED 00 AREA FOUR Medical TIMES Branch DAILY DICLOFENAC 2020-11 Yes [id number] APPLY TO Univers SODIUM 1 % 2-02 THE ity of gel 00:00: AFFECTED 00 AREA FOUR Medical TIMES Branch DAILY DICLOFENAC 2020-11 Yes [id number] APPLY TO Univers SODIUM 1 % 2-02 THE ity of gel 00:00: AFFECTED [place] 00 AREA FOUR Medical TIMES Branch DAILY DICLOFENAC 2020-11 Yes [id number] APPLY TO Univers SODIUM 1 % 2-02 THE ity of gel 00:00: AFFECTED [place] 00 AREA [facility] Medical TIMES Branch DAILY metFORMIN 2020-11 Yes [id number] 1000mg Take 1 Univers 1,000 mg 1-18 tablet by ity of tablet 00:00: mouth (two) Medical times Branch daily with meals. metFORMIN 2020-11 Yes [id number] 1000mg Take 1 Univers 1,000 mg 1-18 tablet by ity of tablet 00:00: mouth (two) Medical times Branch daily with meals. metFORMIN 2020-11 Yes [id number] 1000mg Take 1 Univers 1,000 mg 1-18 tablet by ity of tablet 00:00: mouth (two) Medical times Branch daily with meals. metFORMIN 2020-11 Yes [id number] 1000mg Take 1 Univers 1,000 mg 1-18 tablet by ity of tablet 00:00: mouth (two) Medical times Branch daily with meals. metFORMIN 2020-11 Yes [id number] 1000mg Take 1 Univers 1,000 mg 1-18 tablet by ity of tablet 00:00: mouth (two) Medical times Branch daily with meals. metFORMIN 2020-11 Yes [id number] 1000mg Take 1 Univers 1,000 mg 1-18 tablet by ity of tablet 00:00: mouth (two) Medical times Branch daily with meals. metFORMIN 2020-11 Yes [id number] 1000mg Take 1 Univers 1,000 mg 1-18 tablet by ity of tablet 00:00: mouth (two) Medical times Branch daily with meals. metFORMIN 2020-11 Yes [id number] 1000mg Take 1 Univers 1,000 mg 1-18 tablet by ity of tablet 00:00: mouth 2 [place] 00 (two) Medical times Branch daily with meals. colchicine 2020-11 Yes [id number] .6mg Take 1 U nivers 0.6 mg 0-07 tablet by ity of tablet 00:00: mouth [place] 00 daily. Medical Branch gabapentin 2020-11 Yes [id number] 600mg Take 1 Univers 600 mg 0-07 tablet by ity of tablet 00:00: mouth 3 [place] 00 (three) Medical times Branch daily. colchicine 2020-11 Yes [id number] .6mg Take 1 U nivers 0.6 mg 0-07 tablet by ity of tablet 00:00: mouth [place] 00 daily. Medical Branch gabapentin 2020-11 Yes [id number] 600mg Take 1 Univers 600 mg 0-07 tablet by ity of tablet 00:00: mouth 3 [place] 00 (three) Medical times Branch daily. colchicine 2020-11 Yes [id number] .6mg Take 1 U nivers 0.6 mg 0-07 tablet by ity of tablet 00:00: mouth [place] 00 daily. Medical Branch colchicine 2020-11 Yes [id number] .6mg Take 1 U nivers 0.6 mg 0-07 tablet by ity of tablet 00:00: mouth [place] 00 daily. Medical Branch colchicine 2020-11 Yes [id number] .6mg Take 1 U nivers 0.6 mg 0-07 tablet by ity of tablet 00:00: mouth [place] 00 daily. Medical Branch colchicine 2020-11 Yes [id number] .6mg Take 1 U nivers 0.6 mg 0-07 tablet by ity of tablet 00:00: mouth [place] 00 daily. Medical Branch colchicine 2020-11 Yes [id number] .6mg Take 1 U nivers 0.6 mg 0-07 tablet by ity of tablet 00:00: mouth [place] 00 daily. Medical Branch colchicine 2020-11 Yes [id number] .6mg Take 1 U nivers 0.6 mg [...] [place] x /16 Syrg Medical Branch TRUEPLUS 0 Yes USE TWICE Univ ers INSULIN 1 9-14 DAILY ity of mL 30 gauge 00:00: [place] x 16 Syrg Medical Branch TRUEPLUS 0 Yes USE TWICE Univ ers INSULIN 1 9-14 DAILY ity of mL 30 gauge 00:00: [place] x /16 Syrg Medical Branch TRUEPLUS 0 Yes USE TWICE [...] 03/16 Syrg Medical Branch insulin NPH Yes [id number] ADMINISTER Univers and regular 8-25 70 UNITS ity of human 70-30 00:00: [place] (HUMULIN 00 SKIN EVERY Medic al 70/30 U-100 MORNING Branc h INSULIN) THEN 100 unit/mL ADMINISTER (70-30) 60 UNITS injection UNDER THE SKIN EVERY EVENING insulin NPH Yes [id number] ADMINISTER Univers and regular 8-25 70 UNITS ity of human 70-30 00:00: [place] (HUMULIN 00 SKIN EVERY Medic al 70/30 U-100 MORNING Branc h INSULIN) THEN 100 unit/mL ADMINISTER (70-30) 60 UNITS injection UNDER THE SKIN EVERY EVENING insulin NPH Yes [id number] ADMINISTER Univers and regular 8-25 70 UNITS ity of human 70-30 00:00: [place] (HUMULIN 00 SKIN EVERY Medic al 70/30 U-100 MORNING Branc h INSULIN) THEN 100 unit/mL ADMINISTER (70-30) 60 UNITS injection UNDER THE SKIN EVERY EVENING insulin NPH Yes [id number] ADMINISTER Univers and regular 8-25 70 UNITS ity of human 70-30 00:00: [place] (HUMULIN 00 SKIN EVERY Medic al 70/30 U-100 MORNING Branc h INSULIN) THEN 100 unit/mL ADMINISTER (70-30) 60 UNITS injection UNDER THE SKIN EVERY EVENING insulin NPH Yes [id number] ADMINISTER Univers and regular 8-25 70 UNITS ity of human 70-30 00:00: [place] THE [place] (HUMULIN 00 SKIN EVERY Medic al 70/30 U-100 MORNING Branc h INSULIN) THEN 100 unit/mL ADMINISTER (70-30) 60 UNITS injection UNDER THE SKIN EVERY EVENING insulin NPH Yes [id number] ADMINISTER Univers and regular 8-25 70 UNITS ity of human 70-30 00:00: [place] (HUMULIN 00 SKIN EVERY Medic al 70/30 U-100 MORNING Branc h INSULIN) THEN 100 unit/mL ADMINISTER (70-30) 60 UNITS injection UNDER THE SKIN EVERY EVENING insulin NPH Yes [id number] ADMINISTER Univers and regular 8-25 70 UNITS ity of human 70-30 00:00: [place] (HUMULIN 00 SKIN EVERY Medic al 70/30 U-100 MORNING Branc h INSULIN) THEN 100 unit/mL ADMINISTER (70-30) 60 UNITS injection UNDER THE SKIN EVERY EVENING insulin NPH Yes [id number] ADMINISTER Univers and regular 8-25 70 UNITS ity of human 70-30 00:00: [place] (HUMULIN 00 SKIN EVERY Medic al 70/30 U-100 MORNING Branc h INSULIN) THEN 100 unit/mL ADMINISTER (70-30) 60 UNITS injection UNDER THE SKIN EVERY EVENING mirtazapine 0 Yes 15mg Take 15 mg Univers 15 mg 7-14 by mouth ity of tablet 09:38: at [place] [address] bedtime. [facility] mesalamine Yes 1.5g Take 1.5 g U nivers 0.375 gram 7-14 by mouth ity o f 24 hr 09:38: daily. [address] mirtazapine 2020-0 Yes 15mg Take 15 mg Univers 15 mg 7-14 by mouth ity of tablet 09:38: at [place] [address] bedtime. [facility] mesalamine 0 Yes 1.5g Take 1.5 g U nivers 0.375 gram 7-14 by mouth ity o f 24 hr 09:38: daily. [address] mirtazapine 2021-0 Yes 15mg Take 15 mg Univers 15 mg 7-14 by mouth ity of tablet 09:38: at [place] [address] bedtime. Medical Branch mesalamine 2020-0 Yes 1.5g Take 1.5 g U nivers 0.375 gram 7-14 by mouth ity o f 24 hr 09:38: daily. [place] capsule 49 Medical Branch mirtazapine 2020-0 Yes 15mg Take 15 mg Univers 15 mg 7-14 by mouth ity of tablet 09:38: at [place] [address] bedtime. Medical Branch mesalamine 2020-0 Yes 1.5g Take 1.5 g U nivers 0.375 gram 7-14 by mouth ity o f 24 hr 09:38: daily. [facility] 49 Medical Branch mirtazapine 2020-0 Yes 15mg Take 15 mg Univers 15 mg 7-14 by mouth ity of tablet 09:38: at [place] [address] bedtime. Medical Branch mesalamine 2020-0 Yes 1.5g Take 1.5 g U nivers 0.375 gram 7-14 by mouth ity o f 24 hr 09:38: daily. [facility] 49 Medical Branch mirtazapine 2020-0 Yes 15mg Take 15 mg Univers 15 mg 7-14 by mouth ity of tablet 09:38: at [place] [address] bedtime. Medical Branch mesalamine 2020-0 Yes 1.5g Take 1.5 g U nivers 0.375 gram 7-14 by mouth ity o f 24 hr 09:38: daily. [place] [address] Medical Branch mirtazapine 2020-0 Yes 15mg Take 15 mg Univers 15 mg 7-14 by mouth ity of tablet 09:38: at [place] [address] bedtime. Medical Branch mesalamine 2020-0 Yes 1.5g Take 1.5 g U nivers 0.375 gram 7-14 by mouth ity o f 24 hr 09:38: daily. [facility] 49 Medical Branch mirtazapine 2020-0 Yes 15mg Take 15 mg Univers 15 mg 7-14 by mouth ity of tablet 09:38: at [place] [address] bedtime. Medical Branch mesalamine 2020-0 Yes 1.5g Take 1.5 g U nivers 0.375 gram 7-14 by mouth ity o f 24 hr 09:38: daily. [place] [address] Medical Branch predniSONE 2021-0 Yes 10mg Take 10 mg U nivers 10 mg 6-22 by mouth ity of tablet 00:00: daily. [place] [facility] predniSONE 2021-0 Yes 10mg Take 10 mg U nivers 10 mg 6-22 by mouth ity of tablet 00:00: daily. [place] [facility] predniSONE 2021-0 Yes 10mg Take 10 mg U nivers 10 mg 6-22 by mouth ity of tablet 00:00: daily. [place] [facility] predniSONE 2021-0 Yes 10mg Take 10 mg U nivers 10 mg 6-22 by mouth ity of tablet 00:00: daily. [place] [facility] predniSONE 2021-0 Yes 10mg Take 10 mg U nivers 10 mg 6-22 by mouth ity of tablet 00:00: daily. [place] [facility] predniSONE 2021-0 Yes 10mg Take 10 mg U nivers 10 mg 6-22 by mouth ity of tablet 00:00: daily. [place] [facility] predniSONE 2021-0 Yes 10mg Take 10 mg U nivers 10 mg 6-22 by mouth ity of tablet 00:00: daily. [place] [facility] predniSONE 2021-0 Yes 10mg Take 10 mg U nivers 10 mg 6-22 by mouth ity of tablet 00:00: daily. [address] spironolact 1-0 Yes 25mg Take 25 mg Univers one 25 mg 6-08 by mouth ity of tablet 00:00: daily. [address] spironolact 1-0 Yes 25mg Take 25 mg Univers one 25 mg 6-08 by mouth ity of tablet 00:00: daily. [place] [facility] spironolact 1-0 Yes 25mg Take 25 mg Univers one 25 mg 6-08 by mouth ity of tablet 00:00: daily. [place] [facility] spironolact 1-0 Yes 25mg Take 25 mg Univers one 25 mg 6-08 by mouth ity of tablet 00:00: daily. [address] spironolact 1-0 Yes 25mg Take 25 mg Univers one 25 mg 6-08 by mouth ity of tablet 00:00: daily. [address] spironolact 1-0 Yes 25mg Take 25 mg Univers one 25 mg 6-08 by mouth ity of tablet 00:00: daily. [address] spironolact 2021-0 Yes 25mg Take 25 mg Univers one 25 mg 6-08 by mouth ity of tablet 00:00: daily. Medical Branch spironolact Yes 25mg Take 25 mg Univers one 25 mg 6-08 by mouth ity of tablet 00:00: daily. Medical Branch HYDROcodone Yes chronic 1{tbl} Take [...] of rocortisone 00:00: acute left ear 4 [place] 3. otitis (four) Medi mari 1 externa of times Branch mg/mL-unit/ left ear daily. mL-% otic susp neomycin-po 0 Yes [id number] 3[drp] Place 3 Univers lymyxin-hyd 4-14 Drops in ity of rocortisone 00:00: left ear 4 [place] 3.5 (four) Medica l 1 times Branch mg/mL-unit/ daily. mL-% otic susp neomycin-po 2020-0 Yes [id number] 3[drp] Place 3 Univers lymyxin-hyd 4-14 Drops in ity of rocortisone 00:00: left ear 4 [place] 3.5-,000 (four) Medica l 1 times Branch mg/mL-unit/ daily. mL-% otic susp neomycin-po 2020-0 Yes [id number] 3[drp] Place 3 Univers lymyxin-hyd 4-14 Drops in ity of rocortisone 00:00: left ear 4 [place] 3.5-,000- (four) Medica l 1 times Branch mg/mL-unit/ daily. mL-% otic susp neomycin-po 2020-0 Yes [id number] 3[drp] Place 3 Univers lymyxin-hyd 4-14 Drops in ity of rocortisone 00:00: left ear 4 [place] 3.5-,000- 00 (four) Medica l 1 times Branch mg/mL-unit/ daily. mL-% otic susp neomycin-po 2020-0 Yes [id number] 3[drp] Place 3 Univers lymyxin-hyd 4-14 Drops in ity of rocortisone 00:00: left ear 4 [place] 3.5-000- 00 (four) Medica l 1 times Branch mg/mL-unit/ daily. mL-% otic susp neomycin-po 2020-0 Yes [id number] 3[drp] Place 3 Univers lymyxin-hyd 4-14 Drops in ity of rocortisone 00:00: left ear 4 [place] 3.5-000 00 (four) Medica l 1 times Branch mg/mL-unit/ daily. mL-% otic susp neomycin-po 2020-0 Yes [id number] 3[drp] Place 3 Univers lymyxin-hyd 4-14 Drops in ity of rocortisone 00:00: left ear 4 [place] 3.5-,000- 00 (four) Medica l 1 times Branch mg/mL-unit/ daily. mL-% otic susp neomycin-po 2020-0 Yes [id number] 3[drp] Place 3 Univers lymyxin-hyd 4-14 Drops in ity of rocortisone 00:00: left ear 4 [place] 3.5-,000- 00 (four) Medica l 1 times [...] Branch " Syrg hyperglycem E11.65 ia insulin 202-0 Yes [id number] 1{each} 1 Each 2 Univers U-500 3-08 (two) ity of syringe-nee 00:00: times [place] dle 1/2 mL 00 daily with Med ical 31 gauge x meals. Branch 1564" Syrg E11.65 insulin 202-0 Yes [id number] 1{each} 1 Each 2 Univers U-500 3-08 (two) ity of syringe-nee 00:00: times [place] dle 1/2 mL 00 daily with Med ical 31 gauge x meals. Branch " Syrg E11.65 insulin 2020-0 Yes [id number] 1{each} 1 Each 2 Univers U-500 3-08 (two) ity of syringe-nee 00:00: times [place] dle 1/2 mL 00 daily with Med ical 31 gauge x meals. Branch " Syrg E11.65 insulin 2020-0 Yes [id number] 1{each} 1 Each 2 Univers U-500 3-08 (two) ity of syringe-nee 00:00: times [place] dle 1/2 mL 00 daily with Med ical 31 gauge x meals. Branch " Syrg E11.65 insulin 2020-0 Yes [id number] 1{each} 1 Each 2 Univers U-500 3-08 (two) ity of syringe-nee 00:00: times [place] dle 1/2 mL 00 daily with Med ical 31 gauge x meals. Branch " Syrg E11.65 insulin 2020-0 Yes [id number] 1{each} 1 Each 2 Univers U-500 3-08 (two) ity of syringe-nee 00:00: times [place] dle 1/2 mL 00 daily with Med ical 31 gauge x meals. Branch " Syrg E11.65 insulin 202-0 Yes [id number] 1{each} 1 Each 2 Univers U-500 3-08 (two) ity of syringe-nee 00:00: times [place] dle 1/2 mL 00 daily with Med ical 31 gauge x meals. Branch 15" Syrg E11.65 insulin 202-0 2022- No [id number] 1{each} 1 Each 2 Univers U-500 3-08 05-02 (two) ity of syringe-nee 00:00: 00:00 [place] 1/2 mL 00 :00 daily with Med ical 31 gauge x [...] [place] mcg DsDv 00 EVERY DAY [facility] TRELEGY 2020- Yes INHALE 1 Univer s ELLIPTA 2-24 PUFF BY ity of 100-62.5-25 00:00: MOUTH [place] mcg DsDv 00 EVERY DAY [facility] TRELEGY 2020- Yes INHALE 1 Univer s ELLIPTA 2-24 PUFF BY ity of 100-62.5-25 00:00: MOUTH [place] mcg DsDv 00 EVERY DAY [facility] TRELEGY 2020- Yes INHALE 1 Univer s ELLIPTA 2-24 PUFF BY ity of 100-62.5-25 00:00: MOUTH [place] mcg DsDv 00 EVERY DAY Medica Branch TRELEGY 2020- Yes INHALE 1 Univer s ELLIPTA 2-24 PUFF BY ity of 100-62.5-25 00:00: MOUTH [place] mcg DsDv 00 EVERY DAY [facility] TRELEGY 2020- Yes INHALE 1 Univer s ELLIPTA 2-24 PUFF BY ity of 100-62.5-25 00:00: MOUTH [place] mcg DsDv 00 EVERY DAY [facility] TRELEGY 2020- Yes INHALE 1 Univer s ELLIPTA 2-24 PUFF BY ity of 100-62.5-25 00:00: MOUTH [place] mcg DsDv 00 EVERY DAY [facility] TRELEGY 2020- Yes INHALE 1 Univer s [...] by mouth ity of 00:00: at bedtime [place] 00 as needed. Medical Branch zolpidem 10 2019-11 Yes 10mg Take 10 mg Univers mg tablet 2-14 by mouth ity of 00:00: at bedtime [place] 00 as needed. Medical Branch zolpidem 10 2019-11 Yes 10mg Take 10 mg Univers mg tablet 2-14 by mouth ity of 00:00: at bedtime [place] 00 as needed. Medical Branch zolpidem 10 [...] 8 H PRF Branch ABDOMINAL PAIN. dicyclomine 2020- Yes TK 1 C PO U nivers 10 mg 1-24 IN THE ity of capsule 00:00: MORNING 00 AND THEN Q Medical 8 H PRF Branch ABDOMINAL PAIN. dicyclomine 2020- Yes TK 1 C PO [...] vers tablet 1-12 D ity of 00:00: [place] [facility] MOTEGRITY 2020- Yes TK 1 T PO Uni vers tablet 1-12 D ity of 00:00: [place] [facility] MOTEGRITY 2020- Yes TK 1 T PO Uni vers tablet 1-12 D ity of 00:00: [place] [facility] MOTEGRITY 2020- Yes TK 1 T PO Uni vers tablet 1-12 D ity of 00:00: [place] [facility] MOTEGRITY 2020- Yes TK 1 T PO Uni vers tablet 1-12 D ity of 00:00: [facility] MOTEGRITY 2020- Yes TK 1 T PO Uni vers tablet 1-12 D ity of 00:00: [place] [facility] MOTEGRITY 2020- Yes TK 1 T PO Uni vers tablet 1-12 D ity of 00:00: [place] [facility] MOTEGRITY 2020- Yes TK 1 T PO Uni vers tablet 1-12 D ity of 00:00: [facility] MOTEGRITY 2020- Yes TK 1 T [...] 12 H ity of 00:00: Medical Branch ondansetron 2019-11 [...] 1-04 ity of 00:00: Medical Branch diclofenac 2019-11 Yes Morbid 75mg Take 1 Uni vers 75 mg EC 0-08 obesity tablet by ity of tablet 00:00: with body mouth 2 [place] as 00 mass index (two) Medical of 50 or times Branch higher daily with meals. diclofenac 2019-11 Yes [id number] 75mg Take 1 Univers 75 mg EC 0-08 tablet by ity of tablet 00:00: mouth 2 (two) Medical times Branch daily with meals. diclofenac 2019-11 Yes [id number] 75mg Take 1 Univers 75 mg EC 0-08 tablet by ity of tablet 00:00: mouth 2 (two) Medical times Branch daily with meals. diclofenac 2019-11 Yes [id number] 75mg Take 1 Univers 75 mg EC 0-08 tablet by ity of tablet 00:00: mouth 2 (two) Medical times Branch daily with meals. diclofenac 2020-1 Yes [id number] 75mg Take 1 Univers 75 mg EC 0-08 tablet by ity of tablet 00:00: mouth 2 (two) Medical times Branch daily with meals. diclofenac 2020-1 Yes [id number] 75mg Take 1 Univers 75 mg EC 0-08 tablet by ity of tablet 00:00: mouth 2 (two) Medical times Branch daily with meals. diclofenac 2020-1 Yes [id number] 75mg Take 1 Univers 75 mg EC 0-08 tablet by ity of tablet 00:00: mouth 2 (two) Medical times Branch daily with meals. diclofenac 2020-1 Yes [id number] 75mg Take 1 Univers 75 mg EC 0-08 tablet by ity of tablet 00:00: mouth 2 (two) Medical times Branch daily with meals. diclofenac 2020-1 Yes [id number] 75mg Take 1 Univers 75 mg EC [...] Medical TIMES Branch DAILY CLONIDINE 2020-0 Yes [id number] TAKE 1 Un ally 0.2 mg 8-06 TABLET BY ity of tablet 00:00: MOUTH THREE Medical TIMES Branch DAILY CLONIDINE 2020-0 Yes [id number] TAKE 1 Un ally 0.2 mg 8-06 TABLET BY ity of tablet 00:00: MOUTH 00 THREE Medical TIMES Branch DAILY CLONIDINE 2020-0 Yes [id number] TAKE 1 Un ally 0.2 mg 8-06 TABLET BY ity of tablet 00:00: MOUTH 00 THREE Medical TIMES Branch DAILY CLONIDINE 2020-0 Yes [id number] TAKE 1 Un ally 0.2 mg 8-06 TABLET BY ity of tablet 00:00: MOUTH 00 THREE Medical TIMES Branch DAILY CLONIDINE 2020-0 Yes [id number] TAKE 1 Un ally 0.2 mg 8-06 TABLET BY ity of tablet 00:00: MOUTH THREE Medical TIMES Branch DAILY CLONIDINE 2020-0 Yes [id number] TAKE 1 Un ally 0.2 mg 8-06 TABLET BY ity of tablet 00:00: MOUTH THREE Medical TIMES Branch DAILY CLONIDINE 2020-0 Yes [id number] TAKE 1 Un ally 0.2 mg 8-06 TABLET BY ity of tablet 00:00: MOUTH THREE Medical TIMES Branch DAILY CLONIDINE 2020-0 Yes [id number] TAKE 1 Un ally 0.2 mg 8-06 TABLET BY ity of tablet 00:00: MOUTH THREE Medical TIMES Branch DAILY mesalamine 2020-0 Yes 1.5g Take 1.5 g U nivers 0.375 gram 7-13 by mouth ity o f 24 hr 19:23: daily. [place] capsule 21 Medical Branch sulfamethox 2020-0 Yes [...] azole-trime 7-08 BID ity of thoprim 00:00: [place] 800-160 mg 00 Medical per tablet Branch sulfamethox 2020-0 Yes TK 1 T PO U nivers azole-trime 7-08 BID ity of thoprim 00:00: [place] 800-160 mg 00 Medical per tablet Branch AMITIZA 24 2019-0 Yes TK 1 C PO Un ally mcg capsule 7-06 BID ity of 00:00: [place] [facility] AMITIZA 24 2020-0 Yes TK 1 C PO Un ally mcg capsule 7-06 BID ity of 00:00: [place] [facility] AMITIZA 24 2019-0 Yes TK 1 C PO Un ally mcg capsule 7-06 BID ity of 00:00: [place] [facility] AMITIZA 24 2019-0 Yes TK 1 C PO Un ally mcg capsule 7-06 BID ity of 00:00: [place] [facility] AMITIZA 24 2019-0 Yes TK 1 C PO Un ally mcg capsule 7-06 BID ity of 00:00: [place] [facility] AMITIZA 24 2019-0 Yes TK 1 C PO Un ally mcg capsule 7-06 BID ity of 00:00: [place] [facility] AMITIZA 24 2020-0 Yes TK 1 C PO Un ally mcg capsule 7-06 BID ity of 00:00: [place] [facility] AMITIZA 24 2020-0 Yes TK 1 C PO Un ally mcg capsule 7-06 BID ity of 00:00: [place] [facility] AMITIZA 24 2020-0 Yes TK 1 C PO Un ally mcg capsule 7-06 BID ity of 00:00: [place] [facility] XIFAXAN 550 2020-0 Yes Univer s mg tablet 5-14 ity of 00:00: [place] [facility] XIFAXAN 550 2020-0 Yes as needed. Univers mg tablet 5-14 ity of 00:00: [place] 00 Medical Branch XIFAXAN 550 2020-0 Yes as needed. Univers mg tablet 5-14 ity of 00:00: [place] [facility] XIFAXAN 550 2020-0 Yes as needed. Univers mg tablet 5-14 ity of 00:00: [place] [facility] XIFAXAN 550 2020-0 Yes as needed. Univers mg tablet 5-14 ity of 00:00: [place] 00 Medical Branch XIFAXAN 550 2020-0 Yes as needed. Univers mg tablet 5-14 ity of 00:00: [place] [facility] XIFAXAN 550 2020-0 Yes as needed. Univers mg tablet 5-14 ity of 00:00: [place] [facility] XIFAXAN 550 2020-0 Yes as needed. Univers mg tablet 5-14 ity of 00:00: [place] [facility] XIFAXAN 550 2020-0 Yes as needed. Univers mg tablet 5-14 ity of 00:00: [place] [facility] insulin 2019-0 Yes Uncontrolle Take [...] by ity of tablet 00:00: mouth 2 [place] 00 (two) Medical times Branch daily. pantoprazol 2018-11 Yes 40mg Take 1 Univ ers e 40 mg EC 1-21 tablet by ity of tablet 00:00: mouth 2 [place] 00 (two) Medical times Branch daily. allopurinol [...] mg 09:53: mouth [place] tablet 14 daily. [facility] ALPRAZolam 2019-0 Yes 2mg Take 2 [...] Medical moncho type evening. Branch atorvastati Yes [id number] 40mg Take 1 Univers n 40 mg 5-28 tablet by ity of tablet 00:00: mouth [place] 00 every Medical evening. Branch atorvastati Yes [id number] 40mg Take 1 Univers n 40 mg 5-28 tablet by ity of tablet 00:00: mouth [place] 00 every Medical evening. Branch atorvastati Yes [id number] 40mg Take 1 Univers n 40 mg 5-28 tablet by ity of tablet 00:00: mouth [place] 00 every Medical evening. Branch atorvastati Yes [id number] 40mg Take 1 Univers n 40 mg 5-28 tablet by ity of tablet 00:00: mouth [place] 00 every Medical evening. [place] atorvastati Yes [id number] 40mg Take 1 Univers n 40 mg 5-28 tablet by ity of tablet 00:00: mouth [place] 00 every Medical evening. Branch atorvastati 0 Yes [id number] 40mg Take 1 Univers n 40 mg 5-28 tablet by ity of tablet 00:00: mouth [place] 00 every Medical evening. Branch atorvastati 0 Yes [id number] 40mg Take 1 Univers n 40 mg 5-28 tablet by ity of tablet 00:00: mouth [place] 00 every Medical evening. Branch atorvastati 0 Yes [id number] 40mg Take 1 Univers n 40 mg [...] 00 daily. Medical Branch Cholecalcif 2017-11 Yes [id number] Take 1 Un ally alayna, 0-01 capsule by ity of Vitamin D3, 00:00: mouth [place] 50,000 unit 00 weekly. Medic al capsule Branch Cholecalcif 2017-11 Yes [id number] Take 1 Un ally alayna, 0-01 capsule by ity of Vitamin D3, 00:00: mouth [place] 50,000 unit 00 weekly. Medic al capsule Branch Cholecalcif 2017-11 Yes [id number] Take 1 Un ally alayna, 0-01 capsule by ity of Vitamin D3, 00:00: mouth [place] 50,000 unit 00 weekly. Medic al capsule Branch Cholecalcif 2017-11 Yes [id number] Take 1 Un ally alayna, 0-01 capsule by ity of Vitamin D3, 00:00: mouth [place] 50,000 unit 00 weekly. Medic al capsule Branch Cholecalcif 2017-11 Yes [id number] Take 1 Un ally alayna, 0-01 capsule by ity of Vitamin D3, 00:00: mouth [place] 50,000 unit 00 weekly. Medic al capsule Branch Cholecalcif 2017-11 Yes [id number] Take 1 Un ally alayna, 0-01 capsule by ity of Vitamin D3, 00:00: mouth [place] 50,000 unit 00 weekly. Medic al capsule Branch Cholecalcif 2017-11 Yes [id number] Take 1 Un ally alayna, 0-01 capsule by ity of Vitamin D3, 00:00: mouth [place] 50,000 unit 00 weekly. Medic al capsule Branch Cholecalcif 2017-11 Yes [id number] Take 1 Un ally alayna, 0-01 capsule by ity of Vitamin D3, 00:00: mouth [place] 50,000 unit 00 weekly. Medic al capsule Branch Cholecalcif 2017-11 Yes [id number] Take 1 Un ally alayna, 0-01 capsule [...] needed for Wheezing or Shortness of Breath. diclofenac diclofenac No diclofenac [facility] 1 % topical 1 % topical 1 % F amily gel APPLY gel APPLY topical Pr actic TO THE TO THE gel APPLY e AFFECTED AFFECTED TO THE AREA FOUR AREA FOUR AFFECTED TIMES DAILY TIMES DAILY AREA FOUR TIMES DAILY diclofenac diclofenac No diclofenac [facility] sodium 75 sodium 75 sodium 75 Family mg mg mg Practic tablet,artem tablet,artem tablet,del e yed release yed release ayed TAKE 1 TAKE 1 release TABLET BY TABLET BY TAKE 1 MOUTH TWICE MOUTH TWICE TABLET BY DAILY WITH DAILY WITH MOUTH MEALS MEALS TWICE DAILY WITH MEALS dicyclomine dicyclomine No dicyclomin [facility] 10 mg 10 mg e 10 mg Family capsule capsule capsule Practi c TAKE 1 TAKE 1 TAKE 1 e CAPSULE BY CAPSULE BY CAPSULE BY MOUTH EVERY MOUTH EVERY MOUTH 8 HOURS 8 HOURS EVERY 8 HOURS gabapentin gabapentin No gabapentin [facility] 600 mg 600 mg 600 mg [...] SKIN EVERY EVENING hydralazine hydralazine No hydralazin [facility] 100 mg 100 mg e 100 mg Family tablet TAKE tablet TAKE tablet Practic 1 TABLET BY 1 TABLET BY TAKE 1 e MOUTH THREE MOUTH THREE TABLET BY TIMES DAILY TIMES DAILY MOUTH THREE TIMES DAILY hydrochloro hydrochloro No hydrochlor [facility] thiazide thiazide othiazide Fa davida 12.5 mg 12.5 mg 12.5 mg Practi c capsule capsule capsule e TAKE 1 TAKE 1 TAKE 1 CAPSULE BY CAPSULE BY CAPSULE BY MOUTH DAILY MOUTH DAILY MOUTH DAILY hydrocodone hydrocodone No hydrocodon [facility] 7.5 7.5 e 7.5 Family mg-acetamin [...] DAILY WITH MEALS ipratropium ipratropium No ipratropiu [facility] bromide bromide m bromide Fami ly 0.02 % 0.02 % 0.02 % Practic solution solution solution e for for for inhalation inhalation inhalation lisinopril lisinopril No lisinopril [facility] 40 mg 40 mg 40 mg Family tablet TAKE tablet TAKE tablet Practic 1/2 TABLET 1/2 TABLET TAKE 1/2 e BY MOUTH BY MOUTH TABLET BY TWICE DAILY TWICE DAILY MOUTH TWICE DAILY mesalamine mesalamine No mesalamine [facility] ER 0.375 ER 0.375 ER 0.375 Fam ramses gram gram gram Practic capsule,ext capsule,ext capsule,ex e ended ended tended release 24 release 24 release 24 hr TAKE 4 hr TAKE 4 hr TAKE 4 CAPSULES BY CAPSULES BY CAPSULES MOUTH DAILY MOUTH DAILY BY MOUTH DAILY metformin metformin No metformin [facility] 1,000 mg 1,000 mg 1,000 mg Fam ramses tablet TAKE tablet TAKE tablet Practic 1 TABLET BY 1 TABLET BY TAKE 1 e MOUTH TWICE MOUTH TWICE TABLET BY DAILY WITH DAILY WITH MOUTH MEALS MEALS TWICE DAILY WITH MEALS metoprolol metoprolol metoprolol [facility] tartrate tartrate tartrate Fam ramses 100 [...] TABLET BY MOUTH DAILY nitroglycer nitroglycer nitrolisa [facility] in 0.4 mg in 0.4 mg rin 0.4 mg [facility] sublingual sublingual sublingual Practic tablet tablet [...] NEEDED FOR INSOMNIA albuterol albuterol No albuterol [facility] sulfate 2.5 sulfate 2.5 sulfate Family mg/3 mL mg/3 mL 2.5 mg/3 Pract ic (0.083 %) (0.083 %) mL (0.083 e solution solution %) for for solution nebulizatio nebulizatio for n n nebulizati on albuterol albuterol No albuterol [facility] sulfate HFA sulfate HFA sulfate Family [...] SHORTNESS OF BREATH allopurinol allopurinol No allopurino [facility] 300 mg 300 mg l 300 mg Family tablet TAKE tablet TAKE tablet Practic 1 TABLET BY 1 TABLET BY TAKE 1 e MOUTH TWICE MOUTH TWICE TABLET BY DAILY. DAILY. MOUTH TWICE DAILY. alprazolam alprazolam No alprazolam [facility] 2 mg tablet 2 mg tablet 2 mg F amily TAKE 1 TAKE 1 tablet Practic TABLET BY TABLET BY TAKE 1 e MOUTH THREE MOUTH THREE TABLET BY TIMES DAILY TIMES DAILY MOUTH NEEDED NEEDED THREE FOR ANXIETY FOR ANXIETY TIMES DAILY NEEDED FOR ANXIETY amlodipine amlodipine No amlodipine [facility] 5 mg tablet 5 mg tablet 5 mg F amily TAKE 1 TAKE 1 tablet Practic TABLET BY TABLET BY TAKE 1 e MOUTH EVERY MOUTH EVERY TABLET BY DAY DAY MOUTH EVERY DAY atorvastati atorvastati No atorvastat [facility] n 20 mg n 20 mg in 20 mg Famil y tablet TAKE tablet TAKE tablet Practic 1 TABLET BY 1 TABLET BY TAKE 1 e MOUTH EVERY MOUTH EVERY TABLET BY DAY DAY MOUTH EVERY DAY BD Insulin BD Insulin No BD Insulin [facility] Syringe Syringe Syringe Family U-500 1/2 [...] EAR PAIN MUSCLE SPASM OR EAR PAIN Immunizations Ordered Filled Immunization Date Status Comments [facility] e Immunization Name Name SARS-COV-2 COVID-19 2021-07-11 Completed Unive rsity of MODERNA VACCINE 00:00:00 [facility] SARS-COV-2 COVID-19 2021-07-11 Completed Unive rsity of MODERNA VACCINE 00:00:00 [facility] SARS-COV-2 COVID-19 2021-07-11 Completed Unive rsity of MODERNA VACCINE 00:00:00 [facility] SARS-COV-2 COVID-19 2021-07-11 Completed Unive rsity of MODERNA VACCINE 00:00:00 [facility] SARS-COV-2 COVID-19 2021-07-11 Completed Unive rsity of MODERNA VACCINE 00:00:00 [place] Med ical Branch SARS-COV-2 COVID-19 2021-07-11 Completed Unive rsity of MODERNA VACCINE 00:00:00 [place] Med ical Branch SARS-COV-2 COVID-19 2021-07-11 Completed Unive rsity of MODERNA VACCINE 00:00:00 [place] Med ical Branch SARS-COV-2 COVID-19 2021-07-11 Completed Unive rsity of [...] Unive rsity of MODERNA VACCINE 00:00:00 [facility] SARS-COV-2 COVID-19 2020-12-03 Completed Unive rsity of MODERNA VACCINE 00:00:00 [facility] SARS-COV-2 COVID-19 2020-12-03 Completed Unive rsity of MODERNA VACCINE 00:00:00 [facility] SARS-COV-2 COVID-19 2020-12-03 Completed Unive rsity of MODERNA VACCINE 00:00:00 [facility] SARS-COV-2 COVID-19 2020-12-03 Completed Unive rsity of MODERNA VACCINE 00:00:00 [facility] SARS-COV-2 COVID-19 2020-12-03 Completed Unive rsity of MODERNA VACCINE 00:00:00 [facility] SARS-COV-2 COVID-19 2020-12-03 Completed Unive rsity of MODERNA VACCINE 00:00:00 [facility] Influenza Virus 2020-11-13 Completed Universit y of Vaccine [place] .5 mL 00:00:00 [place] [facility] 6+ MO Branch Influenza Virus 2020-11-13 Completed Universit y of Vaccine [place] .5 mL 00:00:00 [place] [facility] 6+ MO Branch Influenza Virus 2020-11-13 Completed Universit y of Vaccine [place] .5 mL 00:00:00 [place] [facility] 6+ MO Branch Influenza Virus 2020-11-13 Completed Universit y of Vaccine [place] .5 mL 00:00:00 [place] [facility] 6+ MO Branch Influenza Virus 2020-11-13 Completed Universit y of Vaccine [place] .5 mL 00:00:00 [place] [facility] 6+ MO Branch Influenza Virus 2020-11-13 Completed Universit y of Vaccine [place] .5 mL 00:00:00 [place] [facility] 6+ MO Branch Influenza Virus 2020-11-13 Completed Universit y of Vaccine [place] .5 mL 00:00:00 [place] [facility] 6+ MO Branch Influenza Virus 2020-11-13 Completed Universit y of Vaccine [place] .5 mL 00:00:00 [place] [facility] 6+ MO Branch Influenza Virus 2020-11-13 Completed Universit y of Vaccine [place] .5 mL 00:00:00 [place] [facility] 6+ MO Branch Vital Signs Vital Name Observation Time Observation Value Comments Source Heart rate 2022-01-25 20:36:00 64 /min Universi ty of [facility] Respiratory rate 2022-01-25 20:36:00 19 /min Univ ersity of [facility] Oxygen saturation in 2022-01-25 20:36:00 97 /min University of Arterial blood by [employer] Pulse oximetry Branch Systolic blood 2022-01-25 20:15:00 150 mm[Hg] Univer sity of pressure [facility] Diastolic blood 2022-01-25 20:15:00 84 mm[Hg] Unive rsity of [facility] Body temperature 2022-01-25 17:56:00 36.56 Pat Univ ersity of [facility] Body weight 2022-01-25 17:56:00 151.955 kg Universi ty of [facility] BMI 2022-01-25 17:56:00 59.34 kg/m2 Universi ty of [facility] HEIGHT 2022-01-09 09:38:00 160 cm WEIGHT 2022-01-09 09:38:00 151.501 kg HEIGHT 2022-01-08 12:04:00 160 cm WEIGHT 2022-01-08 12:04:00 149.687 kg HEIGHT 2022-01-09 09:38:00 160 cm WEIGHT 2022-01-09 09:38:00 151.501 kg HEIGHT 2022-01-08 12:04:00 160 cm WEIGHT 2022-01-08 12:04:00 149.687 kg Systolic blood 2021-12-18 21:40:00 133 mm[Hg] Univer sity of [facility] Diastolic blood 2021-12-18 21:40:00 68 mm[Hg] Unive rsity of [facility] Heart rate 2021-12-18 21:40:00 88 /min Universi ty of [facility] Body height 2021-12-18 21:40:00 160 cm Universi ty of [facility] Body weight 2021-12-18 21:40:00 152.273 kg Universi ty of [facility] BMI 2021-12-18 21:40:00 59.47 kg/m2 [facility]i ty of [facility] Oxygen saturation in 2021-12-18 21:40:00 93 /min University of Arterial blood by [facility] Pulse oximetry Branch Systolic blood 2021-11-06 19:35:00 132 mm[Hg] [facility] pressure Medicine Diastolic blood 2021-11-06 19:35:00 69 mm[Hg] [facility] Medicine Heart rate 2021-11-06 19:35:00 93 /min [facility] Body temperature 2021-11-06 19:35:00 36 Pat [facility] Respiratory rate 2021-11-06 19:35:00 18 /min [facility] Body height 2021-11-06 19:35:00 160 cm [facility] Body weight 2021-11-06 19:35:00 151.32 kg [facility] BMI 2021-11-06 19:35:00 59.09 kg/m2 [facility] BP Diastolic 2021-08-21 00:00:00 89 mm[Hg] [facility] Height 2021-08-21 00:00:00 63 [in_i] [facility] BMI (Body Mass 2021-08-21 00:00:00 58.1 kg/m2 Vill e Family Index) Practice BP Systolic 2021-08-21 00:00:00 131 mm[Hg] [facility] Body Weight 2021-08-21 00:00:00 328 [lb_av] [facility] Procedures Procedure Date / Time Performing Clinician Source Performed CT ABDOMEN PELVIS W 2022-01-25 19:55:56 Jacquelin Gonzalez [facility] COMP. METABOLIC PANEL 2022-01-25 18:36:00 Jacquelin Gonzalez [facility] ([id number]) Medical Branch LIPASE 2022-01-25 18:05:00 Jacquelin Gonzalez [facility] CBC WITH DIFF 2022-01-25 18:05:00 Jacquelin Gonzalez [facility] URINALYSIS 2022-01-25 18:05:00 Jacquelin Gonzalez [facility] CONSENT/REFUSAL FOR 2022-01-25 17:38:16 Doctor Unassigned, No Un [facility] DIAGNOSIS AND TREATMENT Name Medical Branch PAIN MANAGEMENT 2021-02-12 05:01:00 Doctor Unassigned, No Kareener daysi david [place] AGREEMENT & INFORMED Name Medical [facility] critical access hospital CONSENT [facility] Procedure on Shoulder [facility] Fa davida Practice Maintenance of Gastric [facility] F amily Band Practice Gallbladder Surgery [facility] Fami ly Practice Appendectomy [facility] Family Practice Plan of Care Planned Activity Planned Date Details Comments Source Future Scheduled 2021-11-18 Screening for [facility] Col lege Test 09:34:08 malignant neoplasm of of Med icine colon (procedure) [code = 225095119] Future Scheduled 2021-11-18 Screening for [facility] Col lege Test 09:34:08 malignant neoplasm of of Med icine breast (procedure) [code = 617181590] Future Scheduled 2021-11-18 TETANUS SHOT (ADULT) [place] [employer] Test 09:34:08 [code = TETANUS SHOT of Medi cine (ADULT)] Future Scheduled 2021-11-18 BMI FOLLOW UP PLAN [employer] Test 09:34:08 [code = BMI FOLLOW UP of Med icine PLAN] Future Scheduled 2021-11-18 Hepatitis C screening [employer] Test 09:34:08 (procedure) [code = of Medic ine 289103309] Future Scheduled 2021-11-18 Human immunodeficiency [employer] Test 09:34:08 virus screening of Medicine (procedure) [code = 859582561] Future Scheduled 2021-11-18 Screening for [facility] Col [facility]ge Test 09:34:08 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) [code = 091598393] Future Scheduled 2021-11-18 MEDICARE AWV (Initial) [employer] Test 09:34:08 [code = MEDICARE AWV of Medi cine (Initial)] Future Scheduled 2021-11-18 ZOSTER VACCINE (1 of [place] [employer] Test 09:34:08 2) [code = ZOSTER of Medicin e VACCINE (1 of 2)] Future Scheduled 2021-11-18 FLU VACCINE > 6 MONTHS [employer] Test 09:34:08 [code = FLU VACCINE > of Med icine 6 MONTHS] Future Scheduled 2021-11-13 Depression screening Uni versity of Test 00:00:00 (procedure) [code = [place] Me dical 399326531] Branch Future Scheduled 2021-11-06 ANOREC MANOM AND 1 Occurrences [facility] College Test 14:07:12 EMG-GI DEPT [code = starting of Medic ine NOCPT] 11/06/2021 until 05/06/2022 Future Scheduled 2021-11-06 EGD W/MAC - GI DEPT 1 Occurrences [facility] Test 14:07:11 [code = 09579] starting of Medicine 11/06/2021 until 05/06/2022 Future Scheduled 2021-11-06 COLONOSCOPY W MAC GI 1 Occurrences [facility] Test 14:07:11 DEPT [code = 02449] starting of Medic ine 11/06/2021 until 05/06/2022 Future Scheduled 2020-12-28 Creatinine measurement U niversity of Test 00:00:00 (procedure) [code = [facility] dical 09551927] Branch Future Scheduled 2020-12-28 Calculated low density U niversity of Test 00:00:00 lipoprotein [facility] cholesterol level Branch (procedure) [code = 550697352] Future Scheduled 2020-06-27 Hemoglobin A1c Universit y of Test 00:00:00 measurement [facility] (procedure) [code = Branch 68244570] Future Scheduled 2020-04-18 Diabetic foot University of Test 00:00:00 examination [facility] (regime/therapy) [code Branc h = 791992920] Future Scheduled 2019-09-16 Examination of retina Un iversity of Test 00:00:00 (procedure) [code = [place] Me dical 813834987] Branch Future Scheduled 2017 Screening for occult Uni versity of Test 00:00:00 blood in feces [facility] (procedure) [code = Branch 388934957] Future Scheduled 2017 Stool DNA-based Universi ty of Test 00:00:00 colorectal cancer [facility] mari screening (procedure) Branch [code = 140443173558149] Future Scheduled 2017 Flexible fiberoptic Univ ersity of Test 00:00:00 sigmoidoscopy [facility] (procedure) [code = Branch 74110671] Future Scheduled 2017 Screening for University of Test 00:00:00 malignant neoplasm of [facility] colon (procedure) Branch [code = 715807725] Future Scheduled 2017 Screening for University of Test 00:00:00 malignant neoplasm of [facility] colon (procedure) Branch [code = 201179991] Future Scheduled 2017 Zoster Recombinant Unive rsity of Test 00:00:00 Vaccine (SHINGRIX) (1 [place] [facility] of 2) [code = Zoster Branch Recombinant Vaccine (SHINGRIX) (1 of 2)] Future Scheduled 2007 Screening for University of Test 00:00:00 malignant neoplasm of [place] [facility] breast (procedure) Branch [code = 286425546] Future Scheduled 1988 Screening for University of Test 00:00:00 malignant neoplasm of [place] [facility] cervix (procedure) Branch [code = 429879990] Future Scheduled 1986 DTaP,Tdap,and Td Univers ity of Test 00:00:00 Vaccines (1 - Tdap) [place] Me dical [code = DTaP,Tdap,and Branch Td Vaccines (1 - Tdap)] Future Scheduled 1977 Microalbumin University of Test 00:00:00 measurement, urine, [place] Me dical quantitative Branch (procedure) [code = 048123886] Encounters Start End Encounter Admission Attending Care Care Encounter Source Date/Time Date/Time Type Type Clinicians Facility Department ID 2020-08-22 Inpatient Tapan Martin [facility] [id number] [facility] 11:00:[id number] [facility] 2019-12-13 Inpatient Kaur, [facility] ENDO [id number] [facility] 07:00:[id number] [facility] 2019-12-11 Inpatient Kaur, [facility] ENDO [id number] [facility] 07:30:00 [facility] 2019-12-07 Inpatient EL Kaur, [facility] ENDO [id number] [facility] 10:00:00 [facility] 2022-03-18 2022-03-18 Outpatient Leona PEREIRA [facility] [id number] Univers 09:30:00 09:30:00 RANDALL [id number] ity of [facility] 2022-03-02 2022-03-02 Refmaddie Pereira [facility] 1.2.840.114 [id number] Univers 00:00:00 00:00:00 Randall [facility] 350.1.13.10 it y of [place] 4.2.7.2.686 Frankie as JAVIER?BLEA [phone] Me dical [address] MEDICAL OFFICE BUILDING 2022-03-02 2022-03-02 [facility] 1.2.840.114 [id number] Univers 00:00:00 00:00:00 [facility] 350.1.13.10 it y of [facility] 4.2.7.2.686 Frankie as JAVIER?BLEA [phone] Vt dicjessica MARINOEY 044 [facility] 2022-02-05 2022-02-05 Telephone [facility] [id number] Univers 00:00:00 00:00:00 [facility] [id number] it y of [place] 4.2.7.2.686 Frankie as JAVIER?BLEA [phone] Vt dicjessica GOEL 044 [facility] 2022-01-30 2022-01-30 [facility] 1.2.840.114 [id number] Univers 00:00:00 00:00:00 [facility] 350.1.13.10 it y of [place] 4.2.7.2.686 Frankie as PROFESSIO [phone] Vt mary PINA [address] [place] [address] ONE 2022-01-25 2022-01-25 Emergency X [facility] ERT [id number] Univers 12:57:00 16:23:00 JACQUELIN pierre [facility] 2022-01-25 2022-01-25 Emergency [facility] [id number] Univers 12:57:00 16:23:00 Jacquelin Alvarado [place] 350.1.13.10 ity [facility] 4.2.7.2.686 [place] [facility] [phone] [place] [id number] Van 2022-01-22 2022-01-22 Outpatient Aguilar_M VFP VFP [id number] [place] [address] 08:43:00 08:43:00 [id number] Family Practic e 2022-01-22 2022-01-22 Outpatient Aguilar_M VFP VFP [id number] [facility] 08:43:00 08:43:00 [id number] Family Practic e 2022-01-14 2022-01-14 Rohith [facility] 1.2.840.114 [id number] Univers 00:00:00 00:00:00 [facility] 350.1.13.10 it y of [place] 4.2.7.2.686 Frankie as PROFESSIO [phone] Vt maujessica PINA 044 Van OFFICE BUILDING ONE 2022-01-09 2022-01-09 Outpatient MASON, [facility] [id number] [facility] 15:12:14 15:12:14 CHARO Colleg e of Medicin e 2022-01-09 2022-01-09 Outpatient MASON, [facility] [id number] [facility] 15:10:12 15:10:12 CHARO Colleg e of Medicin e 2022-01-09 2022-01-09 Outpatient [facility] Surgery [id number] SLE 07:39:00 14:08:00 CHARO 2022-01-08 2022-01-08 Outpatient [facility] SLE [id number] SLE 12:18:15 23:59:00 2021-12-18 2021-12-18 Office [facility] 1.2.840.114 [id number] Univers 15:45:00 16:15:00 Visit [facility] 350.1.13.10 it y of [place] 4.2.7.2.686 Frankie as JAVIER?BLEA [phone] Vt maujessica GOEL 198 [facility] OFFICE [facility] 2021-12-18 2021-12-18 Outpatient GALILEA [facility] [id number] Univers 15:45:00 15:45:00 [facility] 2021-12-04 2021-12-04 Outpatient [facility] Surgery [id number] SLE 08:54:00 10:51:00 CHARO 2021-11-06 2021-11-06 Office CARIE WISE 1.2.840.114 [id number] [facility] 13:24:51 16:22:30 Visit CHARO AMBULATOR 350.1.13.21 College Y 0.2.7.2.686 of [phone] Medi patsy 325 e 2021-11-01 2021-11-01 Outpatient Aguilar_M VFP VFP [id number] 45-20 Village 02:58:00 02:58:00 [id number] Family Practic e 2021-10-11 2021-10-11 Outpatient Aguilar_M VFP VFP [id number] [place] [address] 06:17:00 06:17:00 [id number] Family Practic e 2021-10-03 2021-10-03 Outpatient Aguilar_M VFP VFP [id number] [place] [address] 05:34:00 05:34:00 [id number] Family Practic e 2021-08-21 2021-08-21 Outpatient Aguilar_M VFP VFP [id number] [place] [address] 03:04:00 03:04:00 [id number] Family Practic e 2021-08-21 2021-08-21 Yousuf VFP [place] - [id number] V illage 00:00:00 00:00:00 [facility] Family Mack, Medical - Pract ic MD: [address] [place] [address] , Ph. 2021-08-20 2021-08-20 Outpatient Alvarez_R VFP VFP [address] [place] [address] 04:30:00 04:30:00 [id number] Family Practic e 2021-03-26 2021-03-26 Refmaddie [facility] 1.2.840.114 [id number] 00:00:00 00:00:00 [facility] 350.1.13.10 [place] 4.2.7.2.686 Professio [phone] nal [facility] Office Building One 2021-03-25 2021-03-25 Refill [facility] 1.2.840.114 [id number] 00:00:00 00:00:00 [facility] 350.1.13.10 [place] 4.2.7.2.686 Professio [phone] nal [facility] Office Building One 2021-03-18 2021-03-18 Gala [facility] 1.2.822.117 [id number] 00:00:00 00:00:00 Randall Elizabeth 350.1.13.10 [place] 4.2.7.2.686 Professio [phone] nal 044 Building 2021-03-13 2021-03-13 Telephone ALIYA Pereira 1.2.241.428 [id number] 00:00:00 00:00:00 [facility] 350.1.13.10 [place] 4.2.7.2.686 Syeda [phone] nal 044 Office Building One 2020-08-23 2020-08-23 Outpatient Tapan Martin [facility] ENDO LA4 [facility] 15:14:00 15:14:00 [id number] [facility] Results Test Description Test Time Test Comments Results Result Comments Source COMP. METABOLIC PANEL (00293) 2022-01-25 18:57:48 Test Item Value Reference Range Interpretation Comme nts NA (test code = 3700046687) 139 mmol/L 135-145 K (test code = 6554242512) 4.3 mmol/L 3.5-5.0 CL (test code = 9403450153) 97 mmol/L 98-108 L CO2 TOTAL (test code = 4091270854) 30 mmol/L 23-31 AGAP (test code = 0857225447) 2-16 BUN (test code = 1509716387) 10 mg/dL 7-23 GLUCOSE (test code = 1950801007) 213 mg/dL 70-110 H CREATININE (test code = 0.48 mg/dL 0.50-1.04 L 9444972928) TOTAL BILI (test code = 0.6 mg/dL 0.1-1.7 8904117793) CALCIUM (test code = 6482448892) 9.0 mg/dL 8.6-10.6 T PROTEIN (test code = 7982508885) 7.2 g/dL 6.3-8.2 ALBUMIN (test code = 3382527340) 4.3 g/dL 3.5-5.0 ALK PHOS (test code = 6768069472) 123 U/L 34-122 H ALTv (test code = 1742-6) 57 U/L 5-35 H AST(SGOT) (test code = 9944880327) 44 U/L 13-40 H eGFR (test code = 5790476909) mL/min/1.73m2 HEATHER (test code = HEATHER) Association of Glomerular Filtration Rate (GFR) and Staging of Kidney Disease* + +-------- + ------+| GFR (mL/min/1.73 m2) ?| With Kidney Damage ?| ?Without Kidney Damage+ +-- + +| ?>90 ?| ?Stage one ?| ? Normal ?+ +------- + -------+| ?60-89 ?| ?Stage two ?| ? Decreased GFR ? + +-------- + ------+| ?30-59 ?| ?Stage three ?| ? Stage three ? + +-------- + ------+| ?15-29 ?| ?Stage four ? | ? Stage four ?+ +------- + -------+| ?<15 (or dialysis) ? ?| ?Stage five ? | ? Stage five ?+ +------- + -------+ *Each stage assumes the associated GFR level has been in effect for at least three months. ?Stages 1 to 5, with or without kidney disease, indicate chronic kidney disease. Notes: Determination of stages one and two (with eGFR >59mL/min/1.73 m2) requires estimation of kidney damage for at least three months as defined by structural or functional abnormalities of the kidney, manifested by either:Pathological abnormalities or Markers of kidney damage (including abnormalities in the composition of the blood or urine or abnormalities in imaging tests). Lab Interpretation (test code = Abnormal 66526-0) [facility] 18[facility]29[facility]05 Test Item Value Reference Range Interpretation Comments LIPASE (test code = 3580544147) 87 U/L 0-220 Lab Interpretation (test code = Normal 51244-3) [facility] [id number] 18:26:03 Test Item Value Reference Range Interpretation Comments WBC (test code = See_Comment [Automated 8190-2) message] The sy stem which generated this result transmitted reference range : 4.30 - 11.10 10*3/?L. The reference range was not used to interpret this result as normal/abnormal . RBC (test code = See_Comment H [Automated 919-8) message] The sy stem which generated this result transmitted reference range : 3.93 - 5.25 10*6/?L. The reference range was not used to interpret this result as normal/abnormal . HGB (test code = 16.4 g/dL 11.6-15.0 H 718-7) HCT (test code = 50.8 % 35.7-45.2 H 4544-3) MCV (test code = 95.5 fL 80.6-95.5 787-2) MCH (test code = 30.8 pg 25.9-32.8 785-6) MCHC (test code = 32.3 g/dL 31.6-35.1 786-4) RDW-SD (test code = 45.3 fL 39.0-49.9 32043-8) RDW-CV (test code = 12.7 % 12.0-15.5 788-0) PLT (test code = See_Comment [Automated 777-3) message] The sy stem which generated this result transmitted reference range : 166 - 358 10*3/ ?L. The reference r pinky was not used to interpret this result as normal/abnormal . MPV (test code = 10.9 fL 9.5-12.9 31743-9) NRBC/100 WBC (test See_Comment [Automat ed code = 0001116004) message] The system which generated this result transmitted reference range : 0.0 - 10.0 /100 WBCs. The refer ence range was not u sed to interpret th is result as normal/abnormal . NRBC x10^3 (test code <0.01 See_Comment [Auto mated = 6048398207) message] The s ystem which generated this result transmitted reference range : 10*3/?L. The reference range was not used to interpret this result as normal/abnormal . GRAN MAT (NEUT) % 73.1 % (test code = 770-8) IMM GRAN % (test code 0.40 % = 7538896397) LYMPH % (test code = 20.7 % 736-9) MONO % (test code = 5.0 % 5905-5) EOS % (test code = 0.4 % 713-8) BASO % (test code = 0.4 % 706-2) GRAN MAT x10^3(ANC) 7.16 10*3/uL 1.88-7.09 H (test code = 2151988629) IMM GRAN x10^3 (test 0.04 10*3/uL 0.00-0.06 code = 5986201388) LYMPH x10^3 (test code 2.03 10*3/uL 1.32-3.29 = 731-0) MONO x10^3 (test code 0.49 10*3/uL 0.33-0.92 = 742-7) EOS x10^3 (test code = 0.04 10*3/uL 0.03-0.39 711-2) BASO x10^3 (test code 0.04 10*3/uL 0.01-0.07 = 704-7) Lab Interpretation Abnormal (test code = 94559-4) [facility] [id number] 18:24:44Surgical Pathology Report Case: [id number] Authorizing Provider: Charo Wise MD Collected: 01/09/2022 11:31 AM Ordering Location: [facility] Endoscopy Received: 01/09/2022 03:51 PM Services Pathologist: Evelin Wharton MD Specimens: A) - Polyp, Colon - Right/Ascending, ascending colon polyp B) -Polyp, Colon - Sigmoid, sigmoid polyp C) - Biopsy, Gastric, random gastric bx A. COLON, RIGHT/ASCENDING, POLYPECTOMY: - TUBULAR ADENOMAB. COLON, SIGMOID, POLYPECTOMY: - TUBULAR ADENOMA C. STOMACH, SITE NOT SPECIFIED, BIOPSY - REACTIVE GASTROPATHY - OXYNTIC MUCOSA WITH NO PATHOLOGIC ALTERATION - NEGATIVE FOR HELICOBACTER MICROORGANISMS ON ROUTINE STAINS Signing Pathologist Direct Phone Line: [phone] signed by Evelin Wharton MD on 01/12/2022 at 6:24 [id number] ref lux disease, polyp of colonA. Polyp, colon-right/ascendingB. Polyp, colon- sigmoidC. Biopsy, gastric, randomA. Received in formalin labeled with the patient's name, medical record number and "ascending colon polyp" and consists of a piece of vazquez soft tissue measuring 0.5 x 0.4 x 0.2 cm. The specimenis submitted in toto in A1.B. Received in formalin labeled with the patient's name, medical record number and "sigmoid colon polyp" and consists of 3 pieces of vazquez- pink soft tissue ranging in size from0.5 x 0.2 x 0.2 cm to 0.5 x 0.3 x 0.2 cm and measuring 1.3 x 0.3 x 0.2 cm in aggregate. The specimenis submitted in toto in B1.C. Received in formalin labeled with the patient's name, medical record nu mber and "gastric BX" and consists of 5 pieces of vazquez-pink soft tissue ranging in size from 0.3 x 0.2 x 0.2 cm to 0.4 x 0.3 x 0.2 cm and measuring 1.0 x 0.7 x 0.2 cm in aggregate. The specimen is submitted in toto in C1.KHHA-B. No high- grade dysplasia or malignancy is identified. C. No significant inflammation, intestinal metaplasia, dysplasia or malignancy is seen. No Helicobacter microorganisms areseen on routine stains.POCT-GLUCOSE [id number] 13:54:18 Test Item Value Reference Range Interpretation Comments POC-GLUCOSE METER 133 mg/dL 70-110 H : TESTED A T [facility] 6720 ([place] AnymobaAKER) (test code = [facility], 1538) 81217: Manager Sap/Techni miguelina ID = [id number] for Marybel Pina POCT-GLUCOSE [id number] 10:12:16 Test Item Value Reference Range Interpretation Comments POC-GLUCOSE METER 135 mg/dL 70-110 H : TESTED A T [facility] 6720 (BEAKER) (test code = [facility], 1538) 94465: Manager Sap/Techni miguelina ID = [id number] for HOLLY FULLER MAYELA SARS-COV2/RT-PCR ([facility])2022-01-09 09:03:44 Test Item Value Reference Range Interpretation Comments SARS-COV2/RT-PCR Negative Negative The SARS-Co V-2 target (test code = nucleic acids a re not 3746532) detected in thi s specimen. Negative result s do not preclude SARS-C oV-2 infection and s hould not be used as the kaye e basis for patient managem ent decisions. Nega tive results must be combine d with clinical observ ations, patient history , and epidemiological information. A false negativ e result may occur if a spec imen is improperly hiro ected, transported or handled. This SARS CoV-2 [...] revoked sooner. Fact Sheet for Healthcare Providers: https://www.Glopho/Documents/Xpert%20Xpress%20SARS%20CoV-2/Fact%20Sheets/3023802%20SARS-COV -2%20HEALTHCARE%20PROVIDERS%20FACT%20SHEET.pdf Fact Sheet for Healthcare Patients: https://www.Seismo-Shelf/Documents/Xpert %20Xpress%20SARS%20CoV-2/Fact%20Sheets/3023801%07CGUP-UUX-5%20PATIENT%20FACT%20 SHEET.vnuPOVN1907-29-47 14:57:00 Test Item Value Reference Range Interpretation Comments SURG (test code = SURG) RUN DATE: 08/26/20 [facility] PAGE 1 RUN TIME: 5217 Specimen Inquiry RUN USER: INTERFACE PATIENT: PEPE MACK LOC: ANDI U #: [id number] AGE/SX: 55/F ROOM: RE08/23/20[facility] DR: Tapan Harper MD : 67 BED: DIS: STATUS: DEP [facility] TLOC: SPEC #: [id number] RECD: 08/23/20 STATUS: KRISTIN RELang #: [id number] HIRO: 08/23/[address] [facility] [address]: Tapan Harper MD ENTERED: 08/23/20 SP TYPE: SURG OTHR DR: Trent Camp DO ORDERED: SURG PATH LVL 02/01 COPIES TO: Trent Camp [place] [address] [place] [address] Tapan Harper MD [address] [place], [place] [address] HISTOLOGY: TISSUE ID BLK PCS DIANE LEV [...] - R10.84; K59.00 CPT CODES CPT CODE(S): 78412L7 , , , , , , FINAL DIAGNOSIS A. Colon, right, biopsy: COLONIC MUCOSA WITH NO PATHOLOGIC DIAGNOSIS B. Colon, mid, biopsy: COLONIC MUCOSA WITH NO PATHOLOGIC DIAGNOSIS CONTINUED ON NEXT PAGE RUN DATE: 08/26/20 [facility] PAGE 2 RUN TIME: 1457 Specimen Inquiry RUN USER: INTERFACE SPEC #: [facility]:[id number] PATIENT: PEPE MACK #[id number] (Continued) FINAL DIAGNOSIS (Continued) C. Colon, left, [...] all as C. ba/nr Grossing performed at [facility] Pathology, [address] [place] [address], [address], [place], [place] [address]. Personal Care Worker: Leeroy Jimenes M.D. MICROSCOPIC DESCRIPTION A. Right [...] 08/26/20 1457 END OF REPORT GLUCOSE BEDSIDE [id number] 08:29:00 Test Item Value Reference Range Interpretation Comments GLUCOSE BEDSIDE TESTING (test code 156 mg/dL 70-110 H = GLUBED) BASIC METABOLIC [id number] 12:40:00 Test Item Value Reference Range Interpretation [...] CA) 9.0 MG/DL 8.5-10.1 N BASIC METABOLIC [id number] 12:37:00 Test Item Value Reference Range Interpretation [...] 9.0 MG/DL 8.5-10.1 N COVID 19 INHOUSE [id number] 12:37:00 Test Item Value Reference Range Interpretation Comments COVID 19 INHOUSE AG NEGATIVE Negative Per [facility] facturer, (test code = negative result s should [id number]) be treated aspr esumptive and, if inconsi [...] symptoms co nsistent with COVID-19. CBC W/AUTO [id number] 12:23:00 Test Item Value Reference Range Interpretation [...] (test code NO DIFF/SCN CRITERIA = MDRICHARDSON) [id number] 15:34:00 RUN DATE: 12/13/19 [facility] PAGE 1 RUN TIME: 1535 Specimen Inquiry RUN USER: INTERFACE PATIENT: PEPE MACK LOC: YASIRErich U #: [id number] AGE/SX: 54/F ROOM: RE12/11/19[facility] DR: Zacarias Kaur MD : 69 BED: DIS: STATUS: BRADLEY CHACON TLOC: SPEC #: [id number] RECD: 12/11/19 STATUS: KRISTIN REQ #: [id number] HIRO: 12/11/[address] [facility] [address]: Zacarias Kaur MD ENTERED: 12/11/19 SP TYPE: SURG OTHR DR: Trent Camp DO ORDERED: SURG PATH LVL 01/31 COPIES TO: Trent Camp DO [address] [place] [address] Zacarias Kaur MD [address] [place] [address] HISTOLOGY: TISSUE ID BLK PCS DIANE LEV PROCEDURE DISPOSITION ____ ___ ___ ___ GASTRIC ANTRUM A 1 3 GASTRIC ANTRUM B 1 3 PROCEDURES: SURG PATH LVL 4 (12/11/19) TISSUES: A. GASTRIC ANTRUM - GASTRIC BIOPSY B. GASTRIC ANTRUM - DISTAL GASTRIC BIOPSY CLINICAL HISTORY EPIGASTRIC PAIN -R10.13; NAUSEA -R11.0; VOMITING -R11.10 CPT CODES CPT CODE(S): 24807U6 , , , , , , FINAL DIAGNOSIS A. Stomach, biopsy: MILD CHRONIC GASTRITIS NEGATIVE FORINTESTINAL METAPLASIA, DYSPLASIA, OR MALIGNANCY NEGATIVE FOR HELICOBACTER PYLORI ORGANISMS B. Stomach, distal, biopsy: MILD CHRONIC GASTRITIS NEGATIVE FOR INTESTINAL METAPLASIA, DYSPLASIA, OR MALIGNANCY CONTINUED ON NEXT PAGE RUN DATE: 12/13/19 [facility] PAGE 2 RUN TIME: 1535 Specimen Inquiry RUN USER: INTERFACE SPEC #: [facility]:[id number] PATIENT: PEPE MACK #[id number] (Continued)---- -------- FINAL DIAGNOSIS (Continued) NEGATIVE FOR HELICOBACTER PYLORI ORGANISMS GROSS DESCRIPTION A. Gastric biopsy. Received in formalin is a vazquez tissue fragment, 0.5 cm, all as A.B. Distal gastric biopsy. Received in formalin is a vazquez tissue fragment, 0.3 cm, all as B. shivam/nr Grossing performed at [facility] Pathology, [address] [place] [address], [address], [place] [address]. Personal Care Worker: Leeroy Jimenes M.D. MICROSCOPIC DESCRIPTION A. Gastric [...] pylori organisms are identified. Signed SIGNATURE ON MABEL Maria TeresamaryjoCarlos M 12/13/19 1534 END OF REPORT GLUCOSE BEDSIDE [id number] 06:17:00 Test Item Value Reference Range Interpretation Comments GLUCOSE BEDSIDE TESTING (test code 170 mg/dL 70-110 H = GLUBED) UR HCG [id number] 11:12:00 Test Item Value Reference Range Interpretation Comments UR HCG QUAL (test code = HCGQLU) NEGATIVE NEGATIVE
[2022-03-03 15:00] LABS: Absolute Lymphocytes (CBC) 2.4 K/uL (0.7-4.9); Lymphocytes % 25.6 % (15.3-44.8); MPV 9.1 fL (7.6-11.3); RBC Red Blood Cell Count 5.08 M/uL (3.86-4.86)
[2022-03-03 15:05] LABS: Protime INR 1.1
[2022-03-03 15:24] LABS: Albumin 3.7 g/dL (3.4-5.0); Bilirubin Direct 0.1 mg/dL (0-0.2); Bilirubin Total 0.4 mg/dL (0.2-1.0); Potassium 3.8 mmol/L (3.5-5.1); Protein, Total 7.9 g/dL (6.4-8.2); Troponin High Sensitivity 6.7 pg/mL (<58.9)
--- NOTE | 2022-03-03 15:24 | RAD REPORT ---
EXAM DESCRIPTION: RAD - Chest Single View - 03/03/2022 3:15 pm CLINICAL HISTORY: CHEST PAIN COMPARISON: Portable 11/11/2021 TECHNIQUE: AP portable chest image was obtained 03/03/2022 3:15 pm . FINDINGS: Exam has significant limitation due to under penetrated portable technique and large body habitus. This accentuates the interstitial pattern potentially masking edema or infiltrate. No focal consolidation identifiable. Upper lobe vasculature within normal limits. Heart size is normal. No soraya surable pleural effusion and no pneumothorax. No acute bony abnormality seen. No acute aortic finding s suspected. IMPRESSION: Limited study without acute cardiopulmonary finding. Exam limitations accentuate the interstitial pattern potentially masking early edema or infiltrate.
--- NOTE | 2022-03-03 16:12 | RAD REPORT ---
EXAM DESCRIPTION: CT - Abdomen Pelvis W Contrast - 03/03/2022 3:50 pm CLINICAL HISTORY: Abdominal pain, acute, nonlocalized COMPARISON: Abdomen Pelvis W Contrast dated 01/24/2022; Abdomen Pelvis W Contrast dated 01/11/2022 TECHNIQUE: Biphasic, helical CT imaging of the abdomen and pelvis was performed following 100 ml non -ionic IV contrast. No oral contrast administered. All CT scans are performed using dose optimization technique as appropriate and may include automated exposure control or mA/KV adjustment according to patient size. FINDINGS: No suspicious findings in the lung bases. The liver, spleen, and pancreas show no new or suspicious findings since January 24 imaging. Cholecyste ctomy clips are present. No abnormal biliary tree dilatation. Symmetric renal function is seen with no hydronephrosis or suspicious renal mass. No pyelonephritis o r acute parenchymal process. No bladder abnormalities. No adrenal abnormalities. Uterus and ovaries s how no new or suspicious findings. Pelvic floor laxity is evident. No dilated bowel loops or bowel wall thickening. Appendectomy clips are present. No acute GI findings seen. No free air, free fluid or inflammatory stranding. No hernia, mass or bulky lymphadenopathy. No suspicious bony findings. IMPRESSION: Contrast enhanced CT abdomen and pelvis showing no acute or emergent finding. No significant change from January 24 imaging.
[2022-03-03] MEDS ORDERED: MORPHINE 4 MG/ML SYR ONE (16:27)
[2022-03-03] MEDS ORDERED: ONDANSETRON 4 MG/2 ML VIAL ONE (16:27)
[2022-03-03] MEDS ORDERED: MECLIZINE HCL 12.5 MG TAB ONE (17:48)
--- NOTE | 2022-03-03 18:17 | ER ---
Nurse's Notes [facility] [place] Name: Maria De Jesus Acosta Age: 56 yrs Sex: Female : 1965 Arrival Date: 03/03/2022 Time: 13:12 Bed 15 Private MD: Trent Irving H Diagnosis: Chest pain, unspecified;Abdominal pain, unspecified;Benign paroxysmal vertigo Presentation: 03/03 13:26 Chief complaint: Patient states: Generalized weakness for 3 weeks. Having some ll1 abdominal pains, history of Chron's. No fever. Chest pressure that radiates into L arm for 2 days. Coronavirus screen: Vaccine status: Patient reports receiving the 2nd dose of the covid vaccine. Client denies travel out of the [place] in the last 14 days. At this time, the client does not indicate any symptoms associated with coronavirus-19. Ebola Screen: Patient denies travel to an Ebola-affected area in the 21 days before illness onset. No acute neurological deficit is noted. Pre-hospital glucose is not applicable to this patient. Initial Sepsis Screen: Does the patient meet any 2 criteria? No. Patient's initial sepsis screen is negative. Does the patient have a suspected source of infection? Yes: Acute abdominal pain. Risk Assessment: Do you want to hurt yourself or someone else? Patient reports no desire to harm self or others. Onset of symptoms was February 18, 2022. 13:26 Method Of Arrival: Wheelchair ll1 13:26 Acuity: EMERALD 3 ll1 Stroke Activation: Symptom onset > 6 hours Physician: Stroke Attending; Name: ; Notified At: ; Arrived At: Physician: Chief Stroke Resident; Name: ; Notified At: ; Arrived At: Physician: Stroke Resident; Name: ; Notified At: ; Arrived At: Physician: ED Attending; Name: ; Notified At: ; Arrived At: Physician: ED Resident; Name: ; Notified At: ; Arrived At: Historical: - Allergies: 13:28 Doxycycline; ll1 13:28 kiwi; ll1 13:28 metoclopramide HCl; ll1 13:28 orange juice; ll1 13:28 Reglan; ll1 - PMHx: 13:28 Asthma; CHF; COPD; Crohn's; Diabetes - NIDDM; Hypertension; ll1 - Immunization history:: Client reports receiving the 2nd dose of the Covid vaccine. - Social history:: Smoking status: Patient denies any tobacco usage or history of. Screenin:20 Abuse screen: Denies threats or abuse. Denies injuries from another. Nutritional ww screening: No deficits noted. Tuberculosis screening: No symptoms or risk factors identified. Fall Risk None identified. Assessment: 17:20 General: Appears in no apparent distress. Behavior is calm, cooperative. Neuro: Level ww of Consciousness is awake, alert, obeys commands, Oriented to person, place, time, situation, Speech is normal. Neuro: Reports dizziness. Cardiovascular: Patient's skin is warm and dry. Respiratory: Airway is patent Respiratory effort is even, unlabored, Respiratory pattern is regular, symmetrical. GI: Abdomen is round obese. Derm: Skin is intact. Vital Signs: 13:26 BP 140 / 80; Pulse 86; Resp 18; Temp 98.2; Pulse Ox 95% ; Weight 149.69 kg; Height 5 ll1 ft. 3 in. (160.02 cm); Pain 7/10; 14:58 BP 117 / 79; Pulse 82; Resp 22; Pulse Ox 99% on R/A; mh5 13:26 Body Mass Index 58.46 (149.69 kg, 160.02 cm) ll1 ED Course: 13:12 Patient arrived in ED. as 13:12 Trent Irving DO is Private Physician. as 13:28 Triage completed. ll1 13:28 Arm band placed on. ll1 13:39 Jad Shoemaker NP is PHCP. pm1 13:39 Juanito Santillan MD is Attending Physician. pm1 14:40 Bella Crooks, JCARLOS is Primary Nurse. ww 14:56 Initial lab(s) drawn, by me, sent to lab. EKG done, by ED staff, reviewed by Juanito Santillan MD. Inserted saline lock: 20 gauge in right antecubital area, using aseptic technique. Blood collected. 14:57 Patient has correct armband on for positive identification. Placed in gown. Bed in low mh5 position. Call light in reach. Side rails up X2. Warm blanket given. finished goods inspector on. Pulse ox on. NIBP on. 14:57 Basic Metabolic Panel Sent. 5 14:57 CBC with Diff Sent. mh5 14:58 LFT's Sent. [facility] 14:58 NT PRO-BNP Sent. 5 14:58 PT-INR Sent. 5 14:58 Troponin HS Sent. mh5 15:17 XRAY Chest (1 view) In Process Unspecified. EDMS 15:52 CT Abd/Pelvis - IV Contrast Only In Process Unspecified. EDMS 17:20 No provider procedures requiring assistance completed. IV discontinued, bleeding ww controlled, No redness/swelling at site. Pressure dressing applied. 18:16 Trent Irving DO is Referral Physician. pm1 Administered Medications: 16:32 Drug: Zofran (Ondansetron) 4 mg Route: IVP; Site: right antecubital; [facility] 16:33 Drug: morphine 4 mg Route: IVP; Site: right antecubital; [facility] 17:48 Drug: Meclizine 50 mg Route: PO; ww Outcome: 18:16 Discharge ordered by MD. pm1 19:00 Discharged to home ambulatory. ww 19:00 Condition: stable 19:00 Discharge instructions given to patient, Instructed on discharge instructions, follow up and referral plans. medication usage, safety practices, Demonstrated understanding of instructions, follow-up care, medications, Prescriptions given X 1. 19:04 Patient left the ED. ww Signatures: Dispatcher [employer] Zohreh Trejo Patrick, NP DECK MATE pm1 Irina Pugh 5 Idalia Reyes, RN RN 1 Lorena Knott RN RN jh6 Bella Crooks RN RN ww Corrections: (The following items were deleted from the chart) 13:29 13:26 Chief complaint: Patient states: Generalized weakness for 3 weeks. Having some ll1 abdominal pains, history of Chron's. No fever. Chest pressure that radiates into L arm for 2 days. ll1
--- NOTE | 2022-03-03 18:17 | EDPHYS ---
Physician Documentation [facility] Name: Maria De Jesus Acosta Age: 56 yrs Sex: Female : 1965 Arrival Date: 03/03/2022 Time: 13:12 Bed 15 Private MD: Trent Irving H ED Physician Juanito Santillan HPI: 03/03 17:09 This 56 yrs old Female presents to ER via Wheelchair with complaints of pm1 Weakness. 17:09 The patient presents to the emergency department with generalized weakness and pm1 dizziness. 17:09 Onset: The symptoms/episode began/occurred 3 week(s) ago. Context: occurred at an pm1 unknown location. Associated signs and symptoms: Pertinent positives: Chest pain onset 2 days ago, abdominal pain onset 1 week. Patient with chronic abdominal pain that has been evaluated by Dr. Harper and Dr. Almazan on multiple occasions without any findings for cause of her abdominal pain. Severity of symptoms: in the emergency department the symptoms are unchanged. The patient has experienced similar episodes in the past, multiple times. The patient has not recently seen a physician. 56-year-old female presenting to the ER with complaints of generalized weakness onset 3 weeks ago. Patient also complaining of abdominal pain for 1 week. History of chronic abdominal pain that has been treated by Dr. Harper and Dr. Loredo on multiple occasions without any findings for cause of her abdominal pain. Patient also reports 2 days ago onset of chest pain. Negative for nausea vomiting diarrhea headache. Patient with left ear pain 1 week ago and 3 days of sensation of room spinning with positional change. Historical: - Allergies: 13:28 Doxycycline; ll1 13:28 kiwi; ll1 13:28 metoclopramide HCl; ll1 13:28 orange juice; ll1 13:28 Reglan; ll1 - PMHx: 13:28 Asthma; CHF; COPD; Crohn's; Diabetes - NIDDM; Hypertension; ll1 - Immunization history:: Client reports receiving the 2nd dose of the Covid vaccine. - Social history:: Smoking status: Patient denies any tobacco usage or history of. ROS: 17:09 Constitutional: Negative for fever, chills, and weight loss, Respiratory: Negative for pm1 shortness of breath, cough, wheezing, and pleuritic chest pain, MS/Extremity: Negative for injury and deformity, Skin: Negative for injury, rash, and discoloration. 17:09 Cardiovascular: Positive for chest pain, Negative for edema, palpitations. 17:09 Abdomen/GI: Positive for abdominal pain, Negative for nausea, vomiting, and diarrhea. 17:09 Neuro: Positive for dizziness, generalized weakness, Negative for headache, numbness, tingling. Exam: 17:09 Constitutional: This is a well developed, well nourished patient who is awake, alert, pm1 and in no acute distress. Head/Face: Normocephalic, atraumatic. 17:09 Back: No spinal tenderness. No costovertebral tenderness. Full range of motion. Skin: Warm, dry with normal turgor. Normal color with no rashes, no lesions, and no evidence of cellulitis. MS/ Extremity: Pulses equal, no cyanosis. Neurovascular intact. Full, normal range of motion. 17:09 Eyes: Periorbital structures: appear normal, Pupils: no acute changes, Extraocular movements: no acute changes, Conjunctiva: no acute changes, no injection, Nystagmus: Patient with bilateral horizontal nystagmus with right wards gaze reproducing her sense of spinning. 17:09 ENT: Exam is negative for acute changes, Mouth: no acute changes, Lips: normal, moist, Oral mucosa: normal, pink and intact, moist. 17:09 Cardiovascular: Exam negative for acute changes, Rate: normal, Rhythm: regular, Pulses: no pulse deficits are appreciated, Heart sounds: normal, normal S1and S2. 17:09 Respiratory: Exam negative for acute changes, respiratory distress, shortness of breath, Breath sounds: are clear throughout. 17:09 Abdomen/GI: Exam negative for acute changes, Inspection: abdomen appears normal, Palpation: abdomen is soft and non-tender, in all quadrants. 17:09 Neuro: Exam negative for acute changes, Orientation: is normal, Mentation: is normal, Motor: is normal, moves all fours. Vital Signs: 13:26 BP 140 / 80; Pulse 86; Resp 18; Temp 98.2; Pulse Ox 95% ; Weight 149.69 kg; Height 5 ll1 ft. 3 in. (160.02 cm); Pain 7/10; 14:58 BP 117 / 79; Pulse 82; Resp 22; Pulse Ox 99% on R/A; mh5 13:26 Body Mass Index 58.46 (149.69 kg, 160.02 cm) ll1 MDM: 13:55 Patient medically screened. pm1 17:24 Data reviewed: vital signs. Data interpreted: Pulse oximetry: on room air is 99 %. pm1 Interpretation: normal. 03/03 14:27 Order name: Basic Metabolic Panel; Complete Time: 15:30 pm1 03/03 14:27 Order name: CBC with Diff; Complete Time: 15:05 pm03/03 14:27 Order name: LFT's; Complete Time: 15:30 pm03/03 14:27 Order name: NT PRO-BNP; Complete Time: 15:30 pm1 03/03 14:27 Order name: PT-INR; Complete Time: 15:05 pm03/03 14:27 Order name: Troponin HS; Complete Time: 15:30 pm1 03/03 14:27 Order name: XRAY Chest (1 view); Complete Time: 15:30 pm1 03/03 14:27 Order name: EKG; Complete Time: 14:28 pm1 03/03 14:27 Order name: Cardiac monitoring; Complete Time: 14:57 pm1 03/03 14:27 Order name: EKG - Nurse/Tech; Complete Time: 14:57 pm03/03 14:27 Order name: CT Abd/Pelvis - IV Contrast Only; Complete Time: 16:16 pm03/03 14:27 Order name: IV Saline Lock; Complete Time: 14:57 pm03/03 14:27 Order name: Labs collected and sent; Complete Time: 14:57 pm03/03 14:27 Order name: O2 Per Protocol; Complete Time: 14:57 pm03/03 14:27 Order name: O2 Sat Monitoring; Complete Time: 14:57 pm1 Administered Medications: 16:32 Drug: Zofran (Ondansetron) 4 mg Route: IVP; Site: right antecubital; jh6 16:33 Drug: morphine 4 mg Route: IVP; Site: right antecubital; jh6 17:48 Drug: Meclizine 50 mg Route: PO; ww Disposition: 03/04 07:11 Co-signature as Attending Physician, Juanito Santillan MD. rn Disposition Summary: 03/03/22 18:16 Discharge Ordered Location: Home pm1 Problem: new pm1 Symptoms: have improved pm1 Condition: Stable pm1 Diagnosis - Chest pain, unspecified pm1 - Abdominal pain, unspecified pm1 - Benign paroxysmal vertigo pm1 Followup: pm1 - With: Emergency Department - When: As needed - Reason: Worsening of condition Followup: pm1 - With: Trent Irving DO - When: 2 - 3 days - Reason: Recheck today's complaints, Continuance of care, Re-evaluation by your physician Discharge Instructions: - Discharge Summary Sheet pm1 - Abdominal Pain, Adult pm1 - Benign Positional Vertigo pm1 - Nonspecific Chest Pain, Adult pm1 Forms: - Medication Reconciliation Form pm1 - Thank You Letter pm1 - Antibiotic Education pm1 - Prescription Opioid Use pm1 Prescriptions: - Meclizine 25 mg Oral Tablet - take 1 tablet by ORAL route every 8 hours As needed; 30 tablet; Refills: 0, pm1 Product Selection Permitted Signatures: Dispatcher [employer] EDMS Juanito Santillan MD MD rn Marinas, Patrick, NP CIRCULATING PROCESS INSPECTOR pm1 Idalia Reyes RN RN 1 Lorena Knott RN RN jh6 Bella Crooks, RN RN ww
[2022-03-03 21:02] VITALS: TEMP 98.2
[2022-03-03 21:03] VITALS: BP 117/79; O2SAT 99
--- NOTE | 2022-03-04 12:55 | EKG ---
Test Date: 2022-03-03 Test Time: 13:31:31 Access Lead: REENA MEASUREMENT RESULTS: Intervals: Rate: 84 NM: 164 QRSD: 78 QT: 404 QTc: 477 [place]: P: 44 NM: 164 QRS: 35 T: 3 INTERPRETIVE STATEMENTS: Normal sinus rhythm Cannot rule out Anterior infarct, age undetermined Abnormal ECG Compared to ECG 04/02/2021 16:41:21 No significant changes Electronically Signed On 03-04-22 12:52:10 CDT by Jin Mendenhall
== END 2022-03-03 19:04 | disposition home or self-care (01) ==
LOC: ER 13:10
DX: R07.9 Chest pain, unspecified (principal); R10.9 Unspecified abdominal pain; H81.10 Benign paroxysmal vertigo, unspecified ear; R53.1 Weakness; E11.9 Type 2 diabetes mellitus without complications; I10 Essential (primary) hypertension; I50.9 Heart failure, unspecified; Z88.1 Allergy status to other antibiotic agents; Z88.8 Allergy status to other drugs, medicaments and biological substances; Z91.018 Allergy to other foods
CPT/HCPCS: 93005; 85025; 80048; 36415; 85610; 80076; 84484; 83880; 74177; 71045; Q9967; J8597; J2405; 96374; 96375; 99284

== ENCOUNTER 2022-04-20 10:48 | Emergency (ER) | payer OTHER ==
--- OUTSIDE RECORDS SUMMARY | 2022-04-20 11:04 | XMS REPORT | Continuity of Care Document ---
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 TWICE DAILY TWICE DAILY MOUTH TWICE DAILY mesalamine mesalamine No mesalamine [facility] ER 0.375 ER 0.375 ER 0.375 Fam ramses gram gram gram Practic capsule,ext capsule,ext capsule,ex e ended ended tended release 24 release 24 release 24 hr TAKE 4 hr TAKE 4 hr TAKE 4 CAPSULES BY CAPSULES BY CAPSULES MOUTH DAILY MOUTH DAILY BY MOUTH DAILY metformin metformin No metformin [facility] 1,000 mg 1,000 mg 1,000 mg Fam ramses tablet TAKE tablet TAKE tablet Practic 1 TABLET BY 1 TABLET BY TAKE 1 e MOUTH TWICE MOUTH TWICE TABLET BY DAILY WITH DAILY WITH MOUTH MEALS MEALS TWICE DAILY WITH MEALS metoprolol metoprolol No metoprolol [facility] tartrate tartrate tartrate Fam ramses 100 mg 100 mg 100 mg Practic tablet TAKE tablet TAKE tablet e 1 TABLET BY 1 TABLET BY TAKE 1 MOUTH TWICE MOUTH TWICE TABLET BY DAILY DAILY MOUTH TWICE DAILY Immunizations Ordered Filled Immunization Date Status Comments [facility] e Immunization Name Name SARS-COV-2 COVID-19 2021-07-11 Completed Unive rsity of MODERNA VACCINE 00:00:00 [facility] SARS-COV-2 COVID-19 2021-07-11 Completed Unive rsity of MODERNA VACCINE 00:00:00 [facility] SARS-COV-2 COVID-19 2021-07-11 Completed Unive rsity of MODERNA VACCINE 00:00:00 [facility] SARS-COV-2 COVID-19 2021-01-01 Completed Unive rsity of MODERNA VACCINE 00:00:00 [facility] SARS-COV-2 COVID-19 2021-01-01 Completed Unive rsity of MODERNA VACCINE 00:00:00 [facility] SARS-COV-2 COVID-19 2021-01-01 Completed Unive rsity of MODERNA VACCINE 00:00:00 [facility] SARS-COV-2 COVID-19 2021-01-01 Completed Unive rsity of MODERNA VACCINE 00:00:00 [facility] SARS-COV-2 COVID-19 2020-12-03 Completed Unive rsity of MODERNA VACCINE 00:00:00 [facility] SARS-COV-2 COVID-19 2020-12-03 Completed Unive rsity of MODERNA VACCINE 00:00:00 [facility] SARS-COV-2 COVID-19 2020-12-03 Completed Unive rsity of MODERNA VACCINE 00:00:00 [facility] SARS-COV-2 COVID-19 2020-12-03 Completed Unive rsity of MODERNA VACCINE 00:00:00 [facility] Influenza Virus 2020-11-13 Completed Universit y of Vaccine Quad .5 mL 00:00:00 [facility] 6+ MO Branch Influenza Virus 2020-11-13 Completed Universit y of Vaccine Quad .5 mL 00:00:00 [facility] 6+ MO Branch Influenza Virus 2020-11-13 Completed Universit y of Vaccine Quad .5 mL 00:00:00 [facility] 6+ MO Branch Influenza Virus 2020-11-13 Completed Universit y of Vaccine Quad .5 mL 00:00:00 [facility] 6+ MO Branch Vital Signs Vital Name Observation Time Observation Value Comments Source Systolic blood 2022-03-18 14:25:00 120 mm[Hg] Univer sity of pressure [facility] Diastolic blood 2022-03-18 14:25:00 70 mm[Hg] Unive rsity of pressure [facility] Heart rate 2022-03-18 14:25:00 78 /min [facility] Body height 2022-03-18 14:25:00 160 cm [facility] Body weight 2022-03-18 14:25:00 150.367 kg [facility] BMI 2022-03-18 14:25:00 58.72 kg/m2 [facility] Oxygen saturation in 2022-03-18 14:25:00 95 /min [facility] blood by [facility] Pulse oximetry Branch HEIGHT 2022-01-09 09:38:00 160 cm WEIGHT 2022-01-09 09:38:00 151.501 kg HEIGHT 2022-01-08 12:04:00 160 cm WEIGHT 2022-01-08 12:04:00 149.687 kg HEIGHT 2022-01-09 09:38:00 160 cm WEIGHT 2022-01-09 09:38:00 151.501 kg HEIGHT 2022-01-08 12:04:00 160 cm WEIGHT 2022-01-08 12:04:00 149.687 kg Systolic blood 2021-11-06 19:35:00 132 mm[Hg] [facility] pressure Medicine Diastolic blood 2021-11-06 19:35:00 69 mm[Hg] [facility] Medicine Heart rate 2021-11-06 19:35:00 93 /min [facility] Body temperature 2021-11-06 19:35:00 36 Pat [facility] Respiratory rate 2021-11-06 19:35:00 18 /min [facility] Body height 2021-11-06 19:35:00 160 cm [facility] Body weight 2021-11-06 19:35:00 151.32 kg [facility] BMI 2021-11-06 19:35:00 59.09 kg/m2 [facility] BP Diastolic 2021-08-21 00:00:00 89 mm[Hg] [facility] Height 2021-08-21 00:00:00 63 [in_i] [facility] BMI (Body Mass 2021-08-21 00:00:00 58.1 kg/m2 [facility] BP Systolic 2021-08-21 00:00:00 131 mm[Hg] [facility] Body Weight 2021-08-21 00:00:00 328 [lb_av] [facility] Procedures Procedure Date / Time Performing Clinician Source Performed PAIN MANAGEMENT 2021-02-12 05:01:00 Doctor Unassigned, No [facility] AGREEMENT & INFORMED Name Medical [facility] CONSENT Knee Surgery [facility] Family [facility] Procedure on Shoulder [facility] Fa davida Practice Maintenance of Gastric [facility] amily [facility] Gallbladder Surgery [facility] Fami ly Practice Appendectomy [facility] Plan of Care Planned Activity Planned Date Details Comments Source Future Scheduled 2021-11-18 Screening for [facility] Test 09:34:08 malignant neoplasm of of Med icine colon (procedure) [code = 889360022] Future Scheduled 2021-11-18 Screening for [facility] 09:34:08 malignant neoplasm of of Med icine breast (procedure) [code = 292615278] Future Scheduled 2021-11-18 TETANUS SHOT (ADULT) [place] [employer] Test 09:34:08 [code = TETANUS SHOT of Medi cine (ADULT)] Future Scheduled 2021-11-18 BMI FOLLOW UP PLAN [employer] Test 09:34:08 [code = BMI FOLLOW UP of Med icine PLAN] Future Scheduled 2021-11-18 Hepatitis C screening [employer] Test 09:34:08 (procedure) [code = of Medic ine 338052169] Future Scheduled 2021-11-18 Human immunodeficiency [employer] Test 09:34:08 virus screening of Medicine (procedure) [code = 550594851] Future Scheduled 2021-11-18 Screening for [facility] Test 09:34:08 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) [code = 043239946] Future Scheduled 2021-11-18 MEDICARE AWV (Initial) [employer] Test 09:34:08 [code = MEDICARE AWV of Medi cine (Initial)] Future Scheduled 2021-11-18 ZOSTER VACCINE (1 of [place] [employer] Test 09:34:08 2) [code = ZOSTER of Medicin e VACCINE (1 of 2)] Future Scheduled 2021-11-18 FLU VACCINE > 6 MONTHS [employer] Test 09:34:08 [code = FLU VACCINE > of Med icine 6 MONTHS] Future Scheduled 2021-11-13 Depression screening Uni versity of Test 00:00:00 (procedure) [code = [facility] dical 803827481] Branch Future Scheduled 2021-11-06 ANOREC MANOM AND 1 Occurrences [employer] Test 14:07:12 EMG-GI DEPT [code = starting of Medic ine NOCPT] 11/06/2021 until 05/06/2022 Future Scheduled 2021-11-06 EGD W/MAC - GI DEPT 1 Occurrences [place] [employer] Test 14:07:11 [code = 06058] starting of Medicine 11/06/2021 until 05/06/2022 Future Scheduled 2021-11-06 COLONOSCOPY W MAC GI 1 Occurrences [employer] Test 14:07:11 DEPT [code = 78037] starting of Medic ine 11/06/2021 until 05/06/2022 Future Scheduled 2020-12-28 Creatinine measurement U niversity of Test 00:00:00 (procedure) [code = [place] [facility] 00892187] Branch Future Scheduled 2020-12-28 Calculated low density U niversity of Test 00:00:00 lipoprotein [facility] cholesterol level Branch (procedure) [code = 224215509] Future Scheduled 2020-06-27 Hemoglobin A1c Universit y of Test 00:00:00 measurement [facility] (procedure) [code = Branch 79894172] Future Scheduled 2020-04-18 Diabetic foot University of Test 00:00:00 examination [facility] (regime/therapy) [code Bran h = 836588986] Future Scheduled 2019-09-16 Examination of retina Un iversity of Test 00:00:00 (procedure) [code = [facility] dical 260411177] Branch Future Scheduled 2017 Screening for occult Uni versity of Test 00:00:00 blood in feces [facility] (procedure) [code = Branch 492121716] Future Scheduled 2017 Stool DNA-based Universi ty of Test 00:00:00 colorectal cancer [facility] screening (procedure) Branch [code = 917455947041586] Future Scheduled 2017 Flexible fiberoptic Univ ersity of Test 00:00:00 sigmoidoscopy [facility] (procedure) [code = Branch 30965613] Future Scheduled 2017 Screening for University of Test 00:00:00 malignant neoplasm of [facility] colon (procedure) Branch [code = 028341656] Future Scheduled 2017 Screening for University of Test 00:00:00 malignant neoplasm of [facility] colon (procedure) Branch [code = 097356100] Future Scheduled 2017 Zoster Recombinant Unive rsity of Test 00:00:00 Vaccine (SHINGRIX) (1 [facility] of 2) [code = Zoster Branch Recombinant Vaccine (SHINGRIX) (1 of 2)] Future Scheduled 2007 Screening for University of Test 00:00:00 malignant neoplasm of [facility] breast (procedure) Branch [code = 795245576] Future Scheduled 1988 Screening for University of Test 00:00:00 malignant neoplasm of [facility] cervix (procedure) Branch [code = 747567106] Future Scheduled 1986 DTaP,Tdap,and Td Univers ity of Test 00:00:00 Vaccines (1 - Tdap) [place] [facility] [code = DTaP,Tdap,and Branch Td Vaccines (1 - Tdap)] Future Scheduled 1977 Microalbumin University of Test 00:00:00 measurement, urine, [place] Me dical quantitative Branch (procedure) [code = 889539128] Encounters Start End Encounter Admission Attending Care Care Encounter Source Date/Time Date/Time Type Type Clinicians Facility Department ID 2020-08-22 Inpatient Tapan Martin [facility] [id number] [facility] 11:00:00 [id number] [facility] 2019-12-13 Inpatient Kaur, [facility] ENDO [id number] [facility] 07:00:00 Zacarias [id number] [facility] 2019-12-11 Inpatient Kaur, [facility] ENDO [id number] [facility] 07:30:00 Zacarias [facility] 2019-12-07 Inpatient EL Kaur, [facility] ENDO [id number] [facility] 10:00:00 Zacarias [facility] 2022-09-21 2022-09-21 Outpatient Leona [facility] [id number] Univers 09:45:00 09:45:00 NEREIDA [id number] [facility] 2022-09-21 2022-09-21 [facility] [id number] Univers 09:45:00 09:45:00 NEREIDA [facility] 2022-04-08 2022-04-08 [facility] [id number] Univers 00:00:00 00:00:00 [facility] [id number] it y of ROSA 4.2.7.2.686 Frankie as JAVIER?BLEA [phone] Me dical [address] MEDICAL OFFICE BUILDING 2022-03-31 2022-03-31 [facility] [id number] Univers 00:00:00 00:00:00 [facility] [id number] it y of [facility] 4.2.7.2.686 Frankie as JAVIER?BLEA [phone] Ia mary [address] OFFICE [facility] 2022-03-18 2022-03-18 Outpatient Leona [facility] [id number] Univers 09:30:00 09:45:06 NEREIDA pierre [facility] 2022-03-18 2022-03-18 [facility] [id number] Univers 09:30:00 09:45:00 Visit [facility] [id number] it y of [facility] 4.2.7.2.686 Frankie as JAVIER?BLEA [phone] Ia mary [address] OFFICE [facility] 2022-01-22 2022-01-22 Outpatient Aguilar_M VFP VFP [id number] [facility] 08:43:00 08:43:00 [id number] Family Practic e 2022-01-22 2022-01-22 Outpatient Aguilar_M VFP VFP [id number] [place] [address] 08:43:00 08:43:00 [id number] Family Practic e 2022-01-09 2022-01-09 Outpatient JAYESH WISE [facility] [id number] [facility] 15:12:14 15:12:14 [facility] e 2022-01-09 2022-01-09 Outpatient CARIE [facility]ELOS [facility] [id number] [facility] 15:10:12 15:10:12 [facility] e 2022-01-09 2022-01-09 Outpatient EL MASON, [facility] Surgery [id number] [facility] 07:39:00 14:08:00 DEWAYNE 2022-01-08 2022-01-08 Outpatient EL SLE SLE [id number] SLE 12:18:15 23:59:00 2021-12-04 2021-12-04 Outpatient EL MASON, SLE Surgery [id number] SLE 08:54:00 10:51:00 DEWAYNE 2021-11-06 2021-11-06 Office JAYESH WISE [id number] [facility] 13:24:51 16:22:30 Visit DEWAYNE AMBULATOR 350...21 College Y 0.2.7.2.686 of [id number] [facility] patsy 325 e 2021-11-01 2021-11-01 Outpatient Aguilar_M VFP VFP [id number] [facility] 02:58:00 02:58:00 [id number] Family Practic e 2021-10-11 2021-10-11 Outpatient Aguilar_M VFP VFP [id number] [place] [address] 06:17:00 06:17:00 [id number] Family Practic e 2021-10-03 2021-10-03 Outpatient Aguilar_M VFP VFP [id number] [place] [address] 05:34:00 05:34:00 [id number] Family Practic e 2021-08-21 2021-08-21 Outpatient Aguilar_M VFP VFP [id number] [place] [address] 03:04:00 03:04:00 [id number] Family Practic e 2021-08-21 2021-08-21 Yousuf VFP [place] - [id number] V illage 00:00:00 00:00:00 [facility] Family Mack, Medical - Pract ic MD: [address], [place] [address] , Ph. 2021-08-20 2021-08-20 Outpatient Alvarez_R VFP VFP [id number] [place] [address] 04:30:00 04:30:00 [id number] Family Practic e 2021-03-26 2021-03-26 [facility] [id number] 00:00:00 00:00:00 [facility] [id number] [place] 4.2.7.2.686 Professio [phone] nal [address] 2021-03-25 2021-03-25 [facility] 1.2.840.114 [id number] 00:00:00 00:00:00 [facility] 350.1.13.10 [place] 4.2.7.2.686 Professio [phone] nal 044 Office [address] One 2021-03-18 2021-03-18 Telephone Randall AZDERREK [id number] [id number] 00:00:00 00:00:00 Nereida Elizabeth 350.1.13.10 [place] 4.2.7.2.686 Professio [phone] nal [address] [place] [address] 2021-03-13 2021-03-13 Telephone Randall AZDERREK [id number] 00:00:00 00:00:00 [facility] 350.1.13.10 [place] 4.2.7.2.686 Professio [phone] [place] [address] Office [facility] One 2020-08-23 2020-08-23 Outpatient Tapan Martin [facility] ENDO LA4 [facility] 15:14:00 15:14:00 [id number] [facility] Results Test Description Test Time Test Comments Results Result Comments Source TISSUE EXAM 2022-01-12 Surgical Pathology 18:24:44 Report Case: [id number] Authorizing Provider: Dewayne Wise MD Collected: 01/09/2022 11:31 AM Ordering Location: [facility] Endoscopy Received: 01/09/2022 03:51 PM Services Pathologist: [...] ROUTINE STAINS Signing Pathologist Direct Phone Line: [phone] naima signed by Evelin Wharton MD on 01/12/2022 at 6:24 [id number] geal reflux disease, polyp of colonA. Polyp, [...] Reference Range Interpretation Comme nts POC-GLUCOSE METER (Mode De Faire) 133 mg/dL 70-110 H : TESTED AT [facility] [address] [facility] (test code = 1538) [facility], [address]: Lead Advisor/Techni miguelina ID = [id number] for Marybel Earl POCT-GLUCOSE [id number] 10:12:16 Test Item Value Reference Range Interpretation Comments POC-GLUCOSE METER 135 mg/dL 70-110 H : TESTED A T [facility] [address] ([employer]) (test code = MIRNA Delgadillo [facility], 1538) [address]: Lead Advisor/Techni miguelina ID = [id number] for MAYELA BROWNING SARS-COV2/RT-PCR ([facility])2022-01-09 09:03:44 Test Item Value Reference Range Interpretation Comments SARS-COV2/RT-PCR Negative Negative The SARS-Co V-2 target (test code = nucleic acids a re not 5515516) detected in thi s specimen. Negative result [...] revoked sooner. Fact Sheet for Healthcare Providers: https://www.RecycleMatch/Documents/Xpert%20Xpress%20SARS%20CoV-2/Fact%20Sheets/3023802%20SARS-COV -2%20HEALTHCARE%20PROVIDERS%20FACT%20SHEET.pdf Fact Sheet for Healthcare Patients: https://www.Geoli.st Classifieds/Documents/Xpert %20Xpress%20SARS%20CoV-2/Fact%20Sheets/3023801%02DZMK-SGN-5%20PATIENT%20FACT%20 SHEET.[id number] 14:57:00 Test Item Value Reference Range Interpretation Comments SURG (test code = SURG) RUN DATE: 08/26/20 [facility] PAGE 1 RUN TIME: 1457 Specimen Inquiry RUN USER: INTERFACE PATIENT: PEPE MACK LOC: ANDI U #: [id number] AGE/SX: 55/F ROOM: RE08/23/20REG DR: Tapan Harper MD : 69 BED: DIS: STATUS: [facility] TLOC: SPEC #: [id number] RECD: 08/23/20 STATUS: KRISTIN RELang #: [id number] AN: 08/23/[address] [facility] [address]: Tapan Harper MD ENTERED: 08/23/20 SP TYPE: SURG OTHR DR: Trent Camp DO ORDERED: SURG PATH LVL 02/01 COPIES TO: Trent [place] [address] [place] [address] Tapan Harper MD [address] [place] [address] HISTOLOGY: TISSUE ID BLK PCS DIANE LEV PROCEDURE DISPOSITION ____ ___ ___ ___ COLON, NOS A 1 2 COLON, NOS B 1 2 COLON, NOS C 1 2 PROCEDURES: SURG PATH LVL 4 (08/23/20-1159) TISSUES: A. COLON, NOS - RIGHT COLON BIOPSY B. COLON, NOS - MID COLON BIOPSY C. COLON, NOS - LEFT COLON BIOPSY CLINICAL HISTORY COLON ULCER - K63.3; ILEITIS - K52.9; PAIN - R10.84; K59.00 CPT CODES CPT CODE(S): 63145K4 , , , , , , FINAL DIAGNOSIS A. Colon, right, biopsy: COLONIC MUCOSA WITH NO PATHOLOGIC DIAGNOSIS B. Colon, mid, biopsy: COLONIC MUCOSA WITH NO PATHOLOGIC DIAGNOSIS CONTINUED ON NEXT PAGE RUN DATE: 08/26/20 [facility] PAGE 2 RUN TIME: 1457 Specimen Inquiry RUN USER: INTERFACE SPEC #: [facility]:[id number] PATIENT: PEPE MACK #[id number] (Continued) FINAL DIAGNOSIS (Continued) C. Colon, left, [...] C. ba/nr Grossing performed at [facility] Pathology, [address] [place] [address], [address], [place], [place] [address]. Service Center Supervisor: Leeroy Jimenes M.D. MICROSCOPIC DESCRIPTION A. Right [...] 08/26/20 1457 END OF REPORT GLUCOSE BEDSIDE [id number] 08:29:00 Test Item Value Reference Range Interpretation Comments GLUCOSE BEDSIDE TESTING (test code 156 mg/dL 70-110 H = GLUBED) BASIC METABOLIC [id number] 12:40:00 Test Item Value Reference Range Interpretation [...] CA) 9.0 MG/DL 8.5-10.1 N BASIC METABOLIC [id number] 12:37:00 Test Item Value Reference Range Interpretation [...] 9.0 MG/DL 8.5-10.1 N COVID 19 INHOUSE [id number] 12:37:00 Test Item Value Reference Range Interpretation Comments COVID 19 INHOUSE AG NEGATIVE Negative Per manu facturer, (test code = negative result s should [id number]) be treated aspr esumptive and, if inconsi [...] symptoms co nsistent with COVID-19. CBC W/AUTO [id number] 12:23:00 Test Item Value Reference Range Interpretation [...] (test code NO DIFF/SCN CRITERIA = MDIFF) [id number] 15:34:00 RUN DATE: 12/13/19 [facility] PAGE 1 RUN TIME: 1535 Specimen Inquiry RUN USER: INTERFACE PATIENT: PEPE MACK LOC: TierraU U #: [id number] AGE/SX: 54/F ROOM: RE12/11/19[facility] DR: Zacarias Kaur MD : 69 BED: DIS: STATUS: [facility] TLOC: SPEC #: [facility]:[id number] RECD: 02 STATUS: KRISTIN [place] #: [id number] AN: 12/11/[address] [facility] [address]: Zacarias Kaur MD ENTERED: 12/11/19 SP TYPE: SURG OTHR DR: Trent Camp DO ORDERED: SURG PATH LVL 01/31 COPIES TO: Trent Camp DO [address] [place] [address] Zacarias Kaur MD [address] [place] [address] HISTOLOGY: TISSUE ID BLK PCS DIANE LEV PROCEDURE DISPOSITION ____ ___ ___ ___ GASTRIC ANTRUM A 1 3 GASTRIC ANTRUM B 1 3 PROCEDURES: SURG PATH LVL 4 (12/11/19) TISSUES: A. GASTRIC ANTRUM - GASTRIC BIOPSY B. GASTRIC ANTRUM - DISTAL GASTRIC BIOPSY CLINICAL HISTORY EPIGASTRIC PAIN -R10.13; NAUSEA -R11.0; VOMITING -R11.10 CPT CODES CPT CODE(S): 34551Q9 , , , , , , FINAL DIAGNOSIS A. Stomach, biopsy: MILD CHRONIC GASTRITIS NEGATIVE FORINTESTINAL METAPLASIA, DYSPLASIA, OR MALIGNANCY NEGATIVE FOR HELICOBACTER PYLORI ORGANISMS B. Stomach, distal, biopsy: MILD CHRONIC GASTRITIS NEGATIVE FOR INTESTINAL METAPLASIA, DYSPLASIA, OR MALIGNANCY CONTINUED ON NEXT PAGE RUN DATE: 12/13/19 [facility] PAGE 2 RUN TIME: 1535 Specimen Inquiry RUN USER: INTERFACE SPEC #: [facility]:[id number] PATIENT: PEPE MACK #[id number] (Continued)---- -------- FINAL DIAGNOSIS (Continued) NEGATIVE FOR HELICOBACTER PYLORI ORGANISMS GROSS DESCRIPTION A. Gastric biopsy. Received in formalin is a vazquez tissue fragment, 0.5 cm, all as A.B. Distal gastric biopsy. Received in formalin is a vazquez tissue fragment, 0.3 cm, all as B. shivam/nr Grossing performed at [facility] Pathology, [address] [place] [address], [address], [place] [address]. Service Center Supervisor: Leeroy Jimenes M.D. MICROSCOPIC DESCRIPTION A. Gastric [...] 12/13/19 1534 END OF REPORT GLUCOSE BEDSIDE [id number] 06:17:00 Test Item Value Reference Range Interpretation Comments GLUCOSE BEDSIDE TESTING (test code 170 mg/dL 70-110 H = GLUBED) UR HCG [id number] 11:12:00 Test Item Value Reference Range Interpretation Comments UR HCG QUAL (test code = HCGQLU) NEGATIVE NEGATIVE
[2022-04-20 11:34] LABS: Absolute Lymphocytes (CBC) 2.9 K/uL (0.7-4.9); Hematocrit 50.7 % (36.0-45.0); Lymphocytes % 32.2 % (15.3-44.8); MPV 9.3 fL (7.6-11.3); RBC Red Blood Cell Count 5.41 M/uL (3.86-4.86)
[2022-04-20 11:50] LABS: Potassium 3.7 mmol/L (3.5-5.1)
--- NOTE | 2022-04-20 11:59 | RAD REPORT ---
EXAM DESCRIPTION: RAD - Chest Single View - 04/20/2022 11:39 am CLINICAL HISTORY: cough, SOB COMPARISON: Portable 03/03/2022 TECHNIQUE: AP portable chest image was obtained 04/20/2022 11:39 am . FINDINGS: Lung volumes are low but similar to comparison. Lung base atelectasis seen on the left. No acute infiltrate seen. Interstitial pattern is similar or less prominent than seen on the March nohemi study. Heart and vasculature are normal. No measurable pleural effusion and no pneumothorax. No acute bony abnormality seen. No acute aortic findings suspected. IMPRESSION: No acute cardiopulmonary process.
[2022-04-20] MEDS ORDERED: ONDANSETRON 4 MG/2 ML VIAL ONE (13:08)
[2022-04-20] MEDS ORDERED: NA CHLORIDE 0.9% 1,000 ML ONE (13:08)
[2022-04-20] MEDS ORDERED: MORPHINE 4 MG/ML SYR ONE (13:08)
[2022-04-20] MEDS ORDERED: Levofloxacin 750mg IV 750 MG/150 ML BAG IV ONE (13:08)
[2022-04-20] MEDS ORDERED: OFLOXACIN OPH 0.3%-5 ML BTL OTIC ONE (13:15)
--- NOTE | 2022-04-20 15:38 | EDPHYS ---
Physician Documentation [facility] Name: Maria De Jesus Acosta Age: 57 yrs Sex: Female : 1965 Arrival Date: 04/20/2022 Time: 10:53 Bed 24 Private MD: MAYNOR Physician Dominguez Voss HPI: 04/20 15:26 This 57 yrs old Female presents to ER via Wheelchair with complaints of ebenezer Headache, General Weakness, Ear Pain - left. 15:26 The patient complains of pain to the left ear. The patient describes the headache as ebenezer aching. Onset: The symptoms/episode began/occurred 3 day(s) ago. Associated signs and symptoms: The patient has no apparent associated signs or symptoms. Headache History: The patient has had previous headaches and this one is similar to previous episodes. Historical: - Allergies: 11:04 Doxycycline; aa5 11:04 kiwi; aa5 11:04 metoclopramide HCl; aa5 11:04 orange juice; aa5 11:04 Reglan; aa5 - PMHx: 11:04 Asthma; CHF; COPD; Crohn's; Diabetes - NIDDM; Hypertension; aa5 - Immunization history:: Adult Immunizations unknown. - Social history:: Smoking status: Patient denies any tobacco usage or history of. ROS: 15:29 Constitutional: Negative for fever, chills, and weight loss, Eyes: Negative for injury, ebenezer pain, redness, and discharge, Neck: Negative for injury, pain, and swelling, Cardiovascular: Negative for chest pain, palpitations, and edema, Respiratory: Negative for shortness of breath, cough, wheezing, and pleuritic chest pain, Abdomen/GI: Negative for abdominal pain, nausea, vomiting, diarrhea, and constipation, Back: Negative for injury and pain, : Negative for injury, bleeding, discharge, and swelling, MS/Extremity: Negative for injury and deformity, Skin: Negative for injury, rash, and discoloration, Neuro: Negative for headache, weakness, numbness, tingling, and seizure, Psych: Negative for depression, anxiety, suicide ideation, homicidal ideation, and hallucinations, Allergy/Immunology: Negative for hives, rash, and allergies, Endocrine: Negative for neck swelling, polydipsia, polyuria, polyphagia, and marked weight changes, Hematologic/Lymphatic: Negative for swollen nodes, abnormal bleeding, and unusual bruising. 15:29 ENT: Positive for ear pain. Exam: 15:29 Constitutional: This is a well developed, well nourished patient who is awake, alert, ebenezer and in no acute distress. Head/Face: Normocephalic, atraumatic. Eyes: Pupils equal round and reactive to light, extra-ocular motions intact. Lids and lashes normal. Conjunctiva and sclera are non-icteric and not injected. Cornea within normal limits. Periorbital areas with no swelling, redness, or edema. Neck: Trachea midline, no thyromegaly or masses palpated, and no cervical lymphadenopathy. Supple, full range of motion without nuchal rigidity, or vertebral point tenderness. No Meningismus. Chest/axilla: Normal chest wall appearance and motion. Nontender with no deformity. No lesions are appreciated. Cardiovascular: Regular rate and rhythm with a normal S1 and S2. No gallops, murmurs, or rubs. Normal PMI, no JVD. No pulse deficits. Respiratory: Lungs have equal breath sounds bilaterally, clear to auscultation and percussion. No rales, rhonchi or wheezes noted. No increased work of breathing, no retractions or nasal flaring. Abdomen/GI: Soft, non-tender, with normal bowel sounds. No distension or tympany. No guarding or rebound. No evidence of tenderness throughout. Back: No spinal tenderness. No costovertebral tenderness. Full range of motion. Skin: Warm, dry with normal turgor. Normal color with no rashes, no lesions, and no evidence of cellulitis. MS/ Extremity: Pulses equal, no cyanosis. Neurovascular intact. Full, normal range of motion. Neuro: Awake and alert, GCS 15, oriented to person, place, time, and situation. Cranial nerves II-XII grossly intact. Motor strength 5/5 in all extremities. Sensory grossly intact. Cerebellar exam normal. Normal gait. Psych: Awake, alert, with orientation to person, place and time. Behavior, mood, and affect are within normal limits. 15:29 ENT: External ear(s): erythema, pain with movement, swelling, that is minimal, of the left ear canal, Ear canal(s): abscess, is not appreciated, bleeding, is not appreciated, bloody discharge, is not appreciated, cerumen impaction, is not appreciated, erythema, that is minimal, that is moderate, of the left canal, foreign body, is not appreciated, TM's: erythema, that is mild, that is moderate, on the left, Mouth: is normal, no abscess, no drooling, no injury, no laceration, no lesion(s), (-) tongue elevation (-) trismus no ulcerations, no gum abnomalities, no lip abnormalities, no mucosal abnormalities, no tongue abnormalities, Lips: normal, moist, Oral mucosa: normal, pink and intact, moist, Gums: normal with healthy appearance, Tongue: is normal, abscess, is not appreciated, drooling, is not appreciated, Posterior pharynx: is normal, no acute changes, Airway: normal, no evidence of obstruction, Tonsils: are normal in appearance, swelling, is not appreciated. Vital Signs: 11:03 BP 115 / 57; Pulse 84; Resp 24 S; Temp 97.4(TE); Pulse Ox 93% on R/A; Weight 149.23 kg aa5 (R); Height 5 ft. 3 in. (160.02 cm) (R); 11:03 Body Mass Index 58.28 (149.23 kg, 160.02 cm) aa5 [place] Coma Score: 15:33 Eye Response: spontaneous(4). Verbal Response: oriented(5). Motor Response: obeys ebenezer commands(6). Total: 15. MDM: 12:40 Patient medically screened. ebenezer 15:33 Differential diagnosis: migraine, sinusitis, temporal arteritis, tension headache, ebenezer trigeminal neuralgia. Data reviewed: vital signs, nurses notes, lab test result(s), CBC, electrolytes. Data interpreted: patient monitor: not applicable for this patient encounter. rate is 93 beats/min, rhythm is normal sinus rhythm, regular. Test interpretation: by ED physician or midlevel provider:. Counseling: I had a detailed discussion with the patient and/or guardian regarding: the historical points, exam findings, and any diagnostic results supporting the discharge/admit diagnosis, lab results, radiology results, the need for outpatient follow up, for definitive care, an ENT specialist, a family practitioner. 04/20 11:05 Order name: CBC with Diff; Complete Time: 12:48 aa5 04/20 11:05 Order name: Basic Metabolic Panel; Complete Time: 12:48 aa5 04/20 11:05 Order name: Chest Single View XRAY; Complete Time: 12:48 aa5 Administered Medications: 12:51 CANCELLED (Duplicate Order): CIPRODEX (ciprofloxacin-dexamethasone) Drops 4 drops Otic ebenezer in left ear once 13:00 Drug: NS 0.9% 1000 ml Route: IV; Rate: 1 bolus; Site: right antecubital; iw 14:00 Follow up: IV Status: Completed infusion iw 13:35 Drug: levofloxacin 750 mg Volume: 150 ml; Route: IVPB; Infused Over: 90 mins; Site: iw left wrist; 15:00 Follow up: IV Status: Completed infusion iw 13:35 Drug: morphine 4 mg Route: IVP; Infused Over: 4 mins; Site: left wrist; iw 14:00 Follow up: Response: No adverse reaction; Pain is decreased iw 13:35 Drug: Zofran (Ondansetron) 4 mg Route: IVP; Site: left wrist; iw 14:00 Follow up: Response: No adverse reaction iw 13:40 Drug: Ofloxacin Drops 0.3 % 4 drops Route: Ophthalmic; Site: left eye; iw Disposition Summary: 04/20/22 15:37 Discharge Ordered Location: Home ebenezer Problem: new ebenezer Symptoms: have improved ebenezer Condition: Stable ebenezer Diagnosis - Acute serous otitis media, left ear ebenezer - Other otitis externa, left ear eebnezer - Type 2 diabetes mellitus with hyperglycemia ebenezer Followup: ebenezer - With: Private Physician - When: 2 - 3 days - Reason: Recheck today's complaints, Continuance of care, Re-evaluation by your physician Followup: ebenezer - With: Linda Arriaza MD - When: 2 - 3 days - Reason: Recheck today's complaints, Continuance of care, Re-evaluation by your physician Discharge Instructions: - Discharge Summary Sheet ebenezer - Otitis Media, Adult ebenezer - Otitis Externa ebenezer - Hyperglycemia ebenezer Forms: - Medication Reconciliation Form ebenezer - Thank You Letter ebenezer - Antibiotic Education ebenezer - Prescription Opioid Use ebenezer Prescriptions: - ofloxacin 0.3 % Ophthalmic drops - instill 4 drop by OPHTHALMIC route [address] in left ear as ebenezer directed, no for the eyes; 10 milliliter; Refills: 0, Product Selection Permitted - levofloxacin 750 mg Oral Tablet - take 1 tablet by ORAL route once daily for 8-10 days; 9 tablet; Refills: 0, [facility] Product Selection Permitted - Tylenol-Codeine #3 300 mg-30 mg Oral - take 2 tablet by ORAL route 6 times per day; 20 tablet; Refills: 0, Product [facility] Selection Permitted Signatures: Dispatcher [employer] Dominguez Henry MD MD cha Williams, Irene, RN RN iw Cristine Tripp RN RN aa5 Corrections: (The following items were deleted from the chart) 12:51 12:49 CIPRODEX (ciprofloxacin-dexamethasone) Drops 4 drops Otic in left ear once [facility] ordered. [facility]
--- NOTE | 2022-04-20 15:38 | ER ---
Nurse's Notes [facility] Name: Maria De Jesus Acosta Age: 57 yrs Sex: Female : 1965 Arrival Date: 04/20/2022 Time: 10:53 Bed 24 Private MD: Diagnosis: Acute serous otitis media, left ear;Other otitis externa, left ear;Type 2 diabetes mellitus with hyperglycemia Presentation: 04/20 11:03 Chief complaint: Patient states: SOB, generalized weakness, cough, and left ear pain aa5 that began Wednesday. Coronavirus screen: cough unrelated to allergies. Ebola Screen: Patient denies travel to an Ebola-affected area in the 21 days before illness onset. Initial Sepsis Screen: Does the patient meet any 2 criteria? RR > 20 per min. Does the patient have a suspected source of infection? No. Patient's initial sepsis screen is negative. Risk Assessment: Do you want to hurt yourself or someone else? Patient reports no desire to harm self or others. Onset of symptoms was April 2022. 11:03 Acuity: EMERALD 3 aa5 11:03 Method Of Arrival: Wheelchair aa5 Historical: - Allergies: 11:04 Doxycycline; aa5 11:04 kiwi; aa5 11:04 metoclopramide HCl; aa5 11:04 orange juice; aa5 11:04 Reglan; aa5 - PMHx: 11:04 Asthma; CHF; COPD; Crohn's; Diabetes - NIDDM; Hypertension; aa5 - Immunization history:: Adult Immunizations unknown. - Social history:: Smoking status: Patient denies any tobacco usage or history of. Screenin:15 Abuse screen: Denies threats or abuse. Denies injuries from another. Nutritional iw screening: No deficits noted. Tuberculosis screening: No symptoms or risk factors identified. Assessment: 15:15 Reassessment: Patient appears in no apparent distress at this time. Patient and/or iw family updated on plan of care and expected duration. Pain level reassessed. Patient is alert, oriented x 3, equal unlabored respirations, skin warm/dry/pink. Vital Signs: 11:03 BP 115 / 57; Pulse 84; Resp 24 S; Temp 97.4(TE); Pulse Ox 93% on R/A; Weight 149.23 kg aa5 (R); Height 5 ft. 3 in. (160.02 cm) (R); 11:03 Body Mass Index 58.28 (149.23 kg, 160.02 cm) aa5 [place] Coma Score: 15:33 Eye Response: spontaneous(4). Verbal Response: oriented(5). Motor Response: obeys ebenezer commands(6). Total: 15. ED Course: 10:53 Patient arrived in ED. am2 11:03 Arm band placed on. aa5 11:04 Triage completed. aa5 11:12 Initial lab(s) drawn, by ky, sent to lab. Inserted saline lock: 20 gauge in left aa5 forearm, using aseptic technique. Blood collected. 11:40 Chest Single View XRAY In Process Unspecified. EDMS 12:04 Anais Duarte RN is Primary Nurse. iw 12:40 Dominguez Voss MD is Attending Physician. [facility] 15:36 Linda Arriaza MD is Referral Physician. ebenezer Administered Medications: 12:51 CANCELLED (Duplicate Order): CIPRODEX (ciprofloxacin-dexamethasone) Drops 4 drops Otic ebenezer in left ear once 13:00 Drug: NS 0.9% 1000 ml Route: IV; Rate: 1 bolus; Site: right antecubital; iw 14:00 Follow up: IV Status: Completed infusion iw 13:35 Drug: levofloxacin 750 mg Volume: 150 ml; Route: IVPB; Infused Over: 90 mins; Site: iw left wrist; 15:00 Follow up: IV Status: Completed infusion iw 13:35 Drug: morphine 4 mg Route: IVP; Infused Over: 4 mins; Site: left wrist; iw 14:00 Follow up: Response: No adverse reaction; Pain is decreased iw 13:35 Drug: Zofran (Ondansetron) 4 mg Route: IVP; Site: left wrist; iw 14:00 Follow up: Response: No adverse reaction iw 13:40 Drug: Ofloxacin Drops 0.3 % 4 drops Route: Ophthalmic; Site: left eye; iw Outcome: 15:37 Discharge ordered by . ebenezer 16:02 Patient left the ED. iw Signatures: Dispatcher [employer] EDW[place] Dominguez Voss MD MD cha Williams, Irene, RN RN iw Cristine Tripp RN RN aa5 Pham Duncan am2
[2022-04-20 16:12] VITALS: BP 115/57; TEMP 97.4; O2SAT 93
== END 2022-04-20 16:02 | disposition home or self-care (01) ==
LOC: ER 10:48
DX: H65.02 Acute serous otitis media, left ear (principal); H60.8X2 Other otitis externa, left ear; E11.65 Type 2 diabetes mellitus with hyperglycemia; I10 Essential (primary) hypertension; Z88.1 Allergy status to other antibiotic agents; Z88.8 Allergy status to other drugs, medicaments and biological substances; Z91.018 Allergy to other foods
CPT/HCPCS: 85025; 80048; 36415; 71045; J7030; J2405; 96361; 96365; 96375; 99284

== ENCOUNTER 2022-09-03 03:01 | Inpatient (IN) | payer OTHER ==
--- OUTSIDE RECORDS SUMMARY | 2022-09-03 03:18 | XMS REPORT | Continuity of Care Document ---
:1965 Author Organization [facility] t Address [address] [place] [address] Care Team Providers Name Role Phone JARON IRVING Primary Care Physician Unavailable Tapan Harper Attending Clinician Unavailable Cas Rodriguez Attending Clinician Unavailable RANDALL SHERIFF Attending Clinician Unavailable CHINMAY OLSEN Attending Clinician Unavailable SONJA OSORIO Attending Clinician Unavailable Sonja Butts Attending Clinician Pob, [facility] Attending Clinician Unavailable Randall Sheriff MD Attending Clinician LOBITO RAI Attending Clinician Unavailable Angelica Mathis MD Attending Clinician Angelica MATHIS Attending Clinician Unavailable Angelica MATHIS Attending Clinician Unavailable GERMAIN CALERO Attending Clinician Unavailable CHARO WISE Attending Clinician Unavailable Eri Attending Clinician Unavailable JACQUELIN GONZALEZ Attending Clinician Unavailable Jacquelin Gonzalez NP Attending Clinician Charo Wise MD Attending Clinician CHARO WISE Attending Clinician Unavailable Rigo GRIFFIN, Adam Gutierrez Attending Clinician Rishabh GRIFFIN, [place] Kellogg Attending Clinician [phone] Germain Ortega Attending Clinician Doctor Unassigned, [place] Attending Clinician Unavailable Placido Coughlin MD Attending Clinician Mimi Attending Clinician Unavailable Nurse, Adc Pob Immunization Attending Clinician Unavailable Miguel Patel DO Attending Clinician MIGUEL PATEL Attending Clinician Unavailable Nabil JOURNEYMAN PATTERNMAKERJaimee Attending Clinician Cbc, Medicare Wellness [place] Attending Clinician Unavailab DUSTIN Holliday Attending Clinician Unavailable Daniel GARBER, Mary Alejandre Attending Clinician Unavailable AMANDA BRAND Attending Clinician Unavailable Provider, [facility] Attending Clinician Unavailable Amanda Gary Attending Clinician PABLO INTERIANO Attending Clinician Unavailable PLACIDO COUGHLIN Attending Clinician Unavailable MOE ELIZALDE Attending Clinician Unavailable Brigida Avilez Attending Clinician Almita Ny MD Attending Clinician ALMITA [place] Attending Clinician Unavailable KEN IRWIN Attending Clinician Unavailable KWESI RAMIREZ Attending Clinician Unavailable Kwesi Ramirez MD Attending Clinician CAS RODRIGUEZ Attending Clinician Unavailable John Casiano Attending Clinician Kimberly Ng Attending Clinician Alexa Guerrero Attending Clinician Jaron Irving Admitting Clinician Unavailable AguilaLove Admitting Clinician Unavailable JACQUELIN GONZALEZ Admitting Clinician Unavailable CHARO WISE Admitting Clinician Unavailable Mimi Admitting Clinician Unavailable CAS RODRIGUEZ Admitting Clinician Unavailable Alexa Guerrero Admitting Clinician Payers Payer Name Policy Type Policy Number Effective Date Expiration Date S carlos MEDICARE PART A [id number] 2010 \\T\\ B 00:00:00 [place]ID OF [place] [id number] 2012 00:00:00 MEDICARE PART A [id number] \\T\\ B - MEDICARE TMHP-MEDICAID - [id number] [place] [id number] 2010 [employer] 00:00:00 [place] [id number] [place] Problems Condition Condition Condition Status Onset Resolution Last Treating Co mments Source Name Details Category Date Date Treatment Clinician Date SOB SOB Disease Active 2021-11 Univers (shortness (shortness 0-25 it y of of breath[place] [facility] [place] New daily New daily Disease Active 2021-11 Uni vers persistent persistent 0-25 it y of headache headache 00:00: [place] [facility] Dizziness Dizziness Disease Active 2021-11 Uni vers 0-25 ity of 00:00: [address] Branch Wheezing Wheezing Disease Active 2021-11 Unive rs 0-25 ity of 00:00: [place] [facility] Branch Diabetes Diabetes Problem Active 2020-11 Blanco ge [...] 4-16 it y of on on 00:00: [place] [facility] Branch Gastroesop Gastroesop Disease Active U nivers hageal hageal 9-27 ity of reflux reflux 00:00: [place] disease disease 00 Medical Branch Type 2 Type 2 Disease Active Univers diabetes diabetes 9-27 ity of mellitus mellitus 00:00: [place] without [...] unspecifie unspecifie [place]: [place] hyperlipid hyperlipid Br anch emia type [...] 50 or Branch higher higher LOW BACK LOW BACK Diagnosis Active 2018-04-04 Memoria PAIN PAIN 5-30 13:34:00 l Active 00:00: [place] 03/30/2018 00 [facility] [place] REFLUX-K21 REFLUX-K2 Diagnosis Active 2014-112015-11-08 Memoria .9 1.9 Active 12-19 12:57:00 l 10/18/2015 00:00: [place] CACERES [place] ACS (acute ACS (acute Disease Active U charis coronary coronary 3-16 ity of syndrome) syndrome[place] Cough Cough Problem Resolve 2019-06-28 [place] radha (finding) (finding) d 15:29:48 l Resolved [place] Problem 06/28/2019 2 weeks ago,, cough, cold , flu; better now [facility] [place] Infection Infection Problem Resolve 2019-06-28 Memoria of ear of ear d 15:29:48 l (disorder) (disorder) He rmann Resolved Problem 06/28/2019 [facility] [place] Irregular Irregular Problem Resolve 2019-06-28 Memoria heart beat heart beat d 15:29:48 l (finding) (finding) Herm flakita Resolved Problem 06/28/2019 [facility] [place] Muscle Muscle Problem Resolve 2019-06-28 Mem oria pain pain d 15:29:48 l (finding) (finding) Herm flakita Resolved Problem 06/28/2019 [facility] [place] Anxiety Anxiety Problem Active 2019-06-28 Me moria (finding) (finding) 15:29:48 l Active [place] Problem 06/28/2019 [facility] [place] Backache Backache Problem Active 2019-06-28 Memoria (finding) (finding) 15:29:48 l Active [place] Problem 06/28/2019 [facility] [place] Gout Gout Problem Active 2019-06-28 Memor ia (disorder) (disorder) 15:29:48 l Active [place] Problem 06/28/2019 [facility] [place] Hypertensi Hypertens Problem Active 2019-06-28 Memoria ve rosales 15:29:48 l disorder, disorder, Herm flakita systemic systemic arterial arterial (disorder) (disorder) Active Problem 06/28/2019 [facility] [place] Insomnia Insomnia Problem Active 2019-06-28 Memoria (disorder) (disorder) 15:29:48 l Active [place] Problem 06/28/2019 [facility] [place] 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 15:29:48 l (disorder) (disorder) He rmann Active Problem 06/28/2019 [facility] [place] Lumbar Lumbar Problem Active 2019-06-28 [place] radha radiculopa radiculopa 15:29:48 l thy thy [place] (disorder) (disorder) Active Problem 06/28/2019 [facility] Neuro Osteoarthr Problem Active 2019-06-28 M emoria itis Osteoarthr 15:29:48 l (disorder) itis [place] n (disorder) Active Problem 06/28/2019 [facility] Peripheral Periphera Problem Active 2019-06-28 Memoria nerve l nerve 15:29:48 l disease disease [place] (disorder) (disorder) Active Problem 06/28/2019 [facility] Sleep Sleep Problem Active 2019-06-28 Memor ia apnea apnea 15:29:48 l (finding) (finding) Herm flakita Active Problem 06/28/2019 [facility] [place] Cholestero Cholester Problem Active 2015-11-11 Memoria l ol 01:38:42 l (substance (substance He rmann ) ) Active Problem 11/11/2015 [place] GASTRO-ESO GASTRO-ES Diagnosis Active 2015-11-08 Memoria PHAGEAL OPHAGEAL 12:57:00 l REFLUX REFLUX [place] DISEASE DISEASE WITHOUT WITHOUT Active [place] No known No known Disease [place] [facility] active active College problems problems of Medicin e Allergies, Adverse Reactions, Alerts Allergy Allergy Status Severity Reaction(s) Onset Inactive Treating Comm ents Source Name Type Date Date Clinician Vance Propensi Active Other [facility] [place] ty to 07-08 reaction( College [place] adverse 00:00: s): of reaction 00 Nausea/Vo Medic in s to miting e drug Kiwi Propensi Active Unknown - Unive rs ty to See comments 3 ity of adverse 00:00: [place] reaction 00 Medical s Branch KIWI DRUG Active Unknown-Cmnt Univ ers INGREDI 3 ity of 00:00: [place] 00 Medical Branch Kiwi Propensi Active Other (See Bayl or Extract ty to Comments) 3 Colleg e adverse 00:00: of reaction 00 Medicin s to e drug Doxycycl Propensi Active [facility] ine ty to 11-06 [place] adverse 00:00: of reaction 00 Medicin s to e drug Metoclop Propensi Active [facility] ramide ty to 11-06 [place] adverse 00:00: of reaction 00 Medicin s to e drug doxycycl DA Active U 2019[facility] [place] [facility] metoclop DA Active U 2019-0 [facility] [place] [facility]: d [facility] doxycycl DA Active U VOMITING 2019-0 [facility] [place] [facility]: d [facility] metoclop DA Active U UNKNOWN 2019-0 [facility] r[facility] 12-07 [place] [facility]: [facility] Vance Propensi Active Nausea Univers ty to and/or 05-11 ity of adverse Vomiting 00:00: [place] reaction Medical s Branch ORANGE DRUG Active N/V Univers INGREDI - ity of 00:00: [place] [facility] Vance Drug Active Nausea And And Kevintracy [facility] Vance Propensi Active Nausea And And Kitracy [facility] ty to Vomiting 05-11 College adverse 00:00: of reaction 00 Medicin s to e drug ORANGE Allergy Active Med N\\T\\V [facility] Doxycycl Propensi Active Nausea Univer s ine ty to and/or 01-14 ity of adverse Vomiting 00:00: [place] reaction [facility] Metoclop Propensi Active Unknown - Told by Oscar cummings ty to See comments 16 anesthesi i ty of Hcl adverse 00:00: ologist [place] reaction that she Medica l s should Branch add to her allergies following a procedure DOXYCYCL DRUG Active N/V Univers INE INGREDI -16 ity of 00:00: [place] [facility] METOCLOP DRUG Active Unknown-Cmnt Un ally CUMMINGS INGREDI 3-16 ity of HCL 00:00: [place] [facility] Doxycycl Drug Active Nausea And [facility] in[facility] Allergy Vomiting 16 [facility] Center Metoclop Drug Active Other (See Told by [facility] ramide Allergy Comments) 3-16 anesthesi Nima es 00:00: ologist Medical 00 that she Center should add to her allergies following a procedure DOXYCYCL Allergy Active High N\\T\\V [facility] INE 3-16 [facility] 00[facility] Medical [facility] Center METOCLOP Allergy Active High Other [facility] RAMIDE 3-16 [facility] 00:00: Medical 00 [place] NO KNOWN Allergy Active [facility] doxycycl doxycycl Active Memori a ine ine l [place] Reglan Reglan Active Memoria l [place] Social History Social Habit Start Date Stop Date Quantity Comments Source History of tobacco Cigarette Smoker University of use [facility] History SDOH University o f Transport Non-Med [place] M edical Branch Exposure to 2022-08-16 2022-08-26 Not sure University of SARS-CoV-2 (event) 00:00:00 13:40:00 [place] [facility] Cigarettes smoked 2022-08-25 2022-08-25 Univers ity of current (pack per 00:00:00 00:00:00 [facility] day) - Reported Branch Alcohol intake 2022-01-09 2022-01-09 Ex-drinker [facility] Nima es 00:00:00 00:00:00 (finding) [facility] Tobacco use and 2022-01-08 2022-01-[address] Janell kes exposure 00:00:00 00:00:00 [facility] Tobacco Comment 2022-01-08 2022-01-08 only as teenager [facility] 00:[facility]00 [facility] Center History [facility] Social 2019-08-25 2019-08-25 3 Unive rsity of Connections Phone 00:00:00 00:00:00 [facility] [place] [facility] edical Branch History SDID Social 2019-08-25 2019-08-25 1 Unive rsity of Connections Get 00:00:00 00:00:00 [facility] ical Together Branch History SDID Social 2019-08-25 2019-08-25 1 Unive rsity of Connections Yazidi 00:00:00 00:00:00 [place] [facility] History SDOH Social 2019-08-25 2019-08-25 2 Unive rsity of Connections 00:00:00 00:00:00 [place] [facility] Membership Branch History SDID Social 2019-08-25 2019-08-25 1 Unive rsity of Connections 00:00:00 00:00:00 [place] [facility] Meetings Branch History SDOH Social 2019-08-25 2019-08-25 5 Unive rsity of Connections Living 00:00:00 00:00:00 [place] [facility] History SDOH 2019-08-25 2019-08-25 0 University o f Physical Activity 00:00:00 00:00:00 [facility] [place] [facility] edical DPW Branch History SDOH 2019-08-25 2019-08-25 0 University o f Physical Activity 00:00:00 00:00:00 [facility] [place] [facility] edical MPS Branch History [facility] Stress 2019-08-25 2019-08-25 3 Unive rsity of [...] Med 00:00:00 00:00:00 [place] Medic al Branch Social History 2015-11-07 2015-11-07 [facility] 16:48:16 16:48:16 [birth year] CARMEN Almeida Janell kes 00:00:00 00:00:00 Medical Center Smoking Status Start Date Stop Date Source Never smoked tobacco [facility] Former smoker 2022-01-08 00:00:00 2022-01-08 00:00:00 [facility] Medications Ordered Filled Start Stop Current Ordering Indication Dosage Frequency Signature Comments Components Source Medication Medication Date Date Medication? Clinician (SIG) Name Name ketorolac 2021-11- No [id number] 30mg Univers (TORADOL) 008-25 ity of injection 16:45: 16:45 [place] 30 mg 00 :00 Medical Branch ketorolac 2021-11- No [id number] 30mg 30 mg, Univers (TORADOL) 008-25 Intramuscu ity of injection 16:45: 16:45 [place], ONCE, [place] 30 mg 00 :00 1 dose, On [facility] Branch 08/25/22 at 1145, Routine ketorolac 2021-11- No [id number] 30mg Univers (TORADOL) 0-25 10- 9105 ity of injection 16:45: 16:45 [place] 30 mg 00 :00 Medical Branch ketorolac 2021-11- No [id number] 30mg 30 mg, Univers (TORADOL) 0-25 10-25 9105 Intramuscu ity of injection 16:45: 16:45 [place], ONCE, [place] 30 mg 00 :00 1 dose, On [facility] Branch 08/25/22 at 1145, Routine rizatriptan 2021-11 Yes [id number] 5mg Take 1 Univers 5 mg 0-25 9105 tablet by ity of disintegrat 00:00: [place] 00 needed for Med ical Migraine Branch (take 1 on onset of migraine and can repeat in 2 hrs). May repeat in 2 hours if needed rizatriptan 2021-11 Yes [id number] 5mg Take 1 Univers 5 mg 0-25 9105 tablet by ity of disintegrat 00:00: [place] 00 needed for Med ical Migraine Branch (take 1 on onset of migraine and can repeat in 2 hrs). May repeat in 2 hours if needed rizatriptan 2021-11 Yes [id number] 5mg Take 1 Univers 5 mg 0-25 9105 tablet by ity of disintegrat 00:00: [place] 00 needed for Med ical Migraine Branch (take 1 on onset of migraine and can repeat in 2 hrs). May repeat in 2 hours if needed rizatriptan 2021-11 Yes [id number] 5mg Take 1 Univers 5 mg 0-25 9105 tablet by ity of disintegrat 00:00: [place] 00 needed for Med ical Migraine Branch (take 1 on onset of migraine and can repeat in 2 hrs). May repeat in 2 hours if needed rizatriptan 2021-11 Yes [id number] 5mg Take 1 Univers 5 mg 0-25 9105 tablet by ity of disintegrat 00:00: [place] 00 needed for Med ical Migraine Branch (take 1 on onset of migraine and can repeat in 2 hrs). May repeat in 2 hours if needed rizatriptan 2021-11 Yes [id number] 5mg Take 1 Univers 5 mg 0-25 9105 tablet by ity of disintegrat 00:00: [place] 00 needed for Med ical Migraine Branch (take 1 on onset of migraine and can repeat in 2 hrs). May repeat in 2 hours if needed NITROGLYCER 2021-[id number] 1 Univers IN 0.4 mg 0-24 TABLET ity of sublingual 00:00: UNDER THE [place] tablet 00 TONGUE Medical EVERY 5 Branch MINUTES NEEDED FOR CHEST PAIN. NITROGLYCER 2021-[id number] 1 Univers IN 0.4 mg 0-24 TABLET ity of sublingual 00:00: [place]ER THE [place] tablet 00 TONGUE Medical EVERY 5 Branch MINUTES NEEDED FOR CHEST PAIN. NITROGLYCER 2021-[id number] 1 Univers IN 0.4 mg 0-24 TABLET ity of sublingual 00:00: [place]ER THE [place] tablet 00 TONGUE Medical EVERY 5 Branch MINUTES NEEDED FOR CHEST PAIN. NITROGLYCER 2021-[id number] 1 Univers IN 0.4 mg 0-24 TABLET ity of sublingual 00:00: [place]ER THE [place] tablet 00 TONGUE Medical EVERY 5 Branch MINUTES NEEDED FOR CHEST PAIN. NITROGLYCER 2021-[id number] 1 Univers IN 0.4 mg 0-24 TABLET ity of sublingual 00:00: [place] THE [place] tablet 00 TONGUE Medical EVERY 5 Branch MINUTES NEEDED FOR CHEST PAIN. NITROGLYCER 2021-[id number] 1 Univers IN 0.4 mg 0-24 TABLET ity of sublingual 00:00: [place] THE [place] tablet 00 TONGUE Medical EVERY 5 Branch MINUTES NEEDED FOR CHEST PAIN. NITROGLYCER 2021-[id number] 1 Univers IN 0.4 mg 0-24 TABLET ity of sublingual 00:00: [place] THE [place] tablet 00 TONGUE Medical EVERY 5 Branch MINUTES NEEDED FOR CHEST PAIN. NITROGLYCER 2021-[id number] 1 Univers IN 0.4 mg 0-24 TABLET ity of sublingual 00:00: [place] THE [place] tablet 00 TONGUE Medical EVERY 5 Branch MINUTES NEEDED FOR CHEST PAIN. GABAPENTIN 2021-11 Yes [id number] TAKE 1 Univers 600 mg 0-21 TABLET BY ity of tablet 00:00: MOUTH [place] 00 THREE Medical TIMES Branch DAILY GABAPENTIN 2021- Yes [id number] TAKE 1 Univers 600 mg 0-21 TABLET BY ity of tablet 00:00: MOUTH [place] 00 THREE Medical TIMES Branch DAILY GABAPENTIN 2021- Yes [id number] TAKE 1 Univers 600 mg 0-21 TABLET BY ity of tablet 00:00: MOUTH [place] THREE Medical TIMES Branch DAILY GABAPENTIN 2021- Yes [id number] TAKE 1 Univers 600 mg 0-21 TABLET BY ity of tablet 00:00: MOUTH [place] 00 THREE Medical TIMES Branch DAILY GABAPENTIN 2021- Yes [id number] TAKE 1 Univers 600 mg 0-21 TABLET BY ity of tablet 00:00: MOUTH [place] 00 THREE Medical TIMES Branch DAILY GABAPENTIN 2021- Yes [id number] TAKE 1 Univers 600 mg 0-21 TABLET BY ity of tablet 00:00: MOUTH THREE Medical TIMES Branch DAILY GABAPENTIN 2021- Yes [id number] TAKE 1 Univers 600 mg 0-21 TABLET BY ity of tablet 00:00: MOUTH [place] 00 THREE Medical TIMES Branch DAILY GABAPENTIN 2021- Yes [id number] TAKE 1 Univers 600 mg 0-21 TABLET BY ity of tablet 00:00: MOUTH [place] 00 THREE Medical TIMES Branch DAILY HYDROcodone 2021-11 Yes [id number] 1{tbl} Take 1 Un ally -acetaminop 0-06 tablet by ity of hen 7.5-325 00:00: mouth [place] mg per 00 every 6 Medical tablet (six) Branch hours as needed for Pain. Indication s: chronic pain HYDROcodone 2021-11 Yes [id number] 1{tbl} Take 1 Un ally -acetaminop 0-06 tablet by ity of hen 7.5-325 00:00: mouth [place] mg per 00 every 6 Medical tablet (six) Branch hours as needed for Pain. Indication s: chronic pain HYDROcodone 2021-11 Yes [id number] 1{tbl} Take 1 Un ally -acetaminop 0-06 tablet by ity of hen 7.5-325 00:00: mouth [place] mg per 00 every 6 Medical tablet (six) Branch hours as needed for Pain. Indication s: chronic pain HYDROcodone 2021-11 Yes [id number] 1{tbl} Take 1 Un ally -acetaminop 0-06 tablet by ity of hen 7.5-325 00:00: mouth [place] mg per 00 every 6 Medical tablet (six) Branch hours as needed for Pain. Indication s: chronic pain HYDROcodone 2021-11 Yes [id number] 1{tbl} Take 1 Un ally -acetaminop 0-06 tablet by ity of hen 7.5-325 00:00: mouth [place] mg per 00 every 6 Medical tablet (six) Branch hours as needed for Pain. Indication s: chronic pain HYDROcodone 2021-11 Yes [id number] 1{tbl} Take 1 Un ally -acetaminop 0-06 tablet by ity of hen 7.5-325 00:00: mouth [place] mg per 00 every 6 Medical tablet (six) Branch hours as needed for Pain. Indication s: chronic pain HYDROcodone 2021-11 Yes [id number] 1{tbl} Take 1 Un ally -acetaminop 0-06 tablet by ity of hen 7.5-325 00:00: mouth [place] mg per 00 every 6 Medical tablet (six) Branch hours as needed for Pain. Indication s: chronic pain HYDROcodone 2021-11 Yes [id number] 1{tbl} Take 1 Un ally -acetaminop 0-06 tablet by ity of hen 7.5-325 00:00: mouth [place] mg per 00 every 6 Medical tablet (six) Branch hours as needed for Pain. Indication s: chronic pain HYDROcodone 2021-11 Yes [id number] 1{tbl} Take 1 Un ally -acetaminop 0-06 tablet by ity of hen 7.5-325 00:00: mouth [place] mg per 00 every 6 Medical tablet (six) Branch hours as needed for Pain. Indication s: chronic pain HYDROcodone 2021-11 Yes [id number] 1{tbl} Take 1 Un ally -acetaminop 0-06 tablet by ity of hen 7.5-325 00:00: mouth [place] mg per 00 every 6 Medical tablet (six) Branch hours as needed for Pain. Indication s: chronic pain HYDRALAZINE 2021-11 Yes [id number] TAKE 1 Univers 100 mg 0-05 TABLET BY ity of tablet 00:00: MOUTH [place] 00 THREE Medical TIMES Branch DAILY HYDRALAZINE 2021-11 Yes [id number] TAKE 1 Univers 100 mg 0-05 TABLET BY ity of tablet 00:00: [facility] THREE Medical TIMES Branch DAILY HYDRALAZINE 2021-11 Yes [id number] TAKE 1 Univers 100 mg 0-05 TABLET BY ity of tablet 00:00: [facility] THREE Medical TIMES Branch DAILY HYDRALAZINE 2021-11 Yes [id number] TAKE 1 Univers 100 mg 0-05 TABLET BY ity of tablet 00:00: [facility] THREE Medical TIMES Branch DAILY HYDRALAZINE 2021-11 Yes [id number] TAKE 1 Univers 100 mg 0-05 TABLET BY ity of tablet 00:00: [facility] THREE Medical TIMES Branch DAILY HYDRALAZINE 2021-11 Yes [id number] TAKE 1 Univers 100 mg 0-05 TABLET BY ity of tablet 00:00: [facility] THREE Medical TIMES Branch DAILY HYDRALAZINE 2021-11 Yes [id number] TAKE 1 Univers 100 mg 0-05 TABLET BY ity of tablet 00:00: [facility] THREE Medical TIMES Branch DAILY HYDRALAZINE 2021-11 Yes [id number] TAKE 1 Univers 100 mg 0-05 TABLET BY ity of tablet 00:00: [facility] THREE Medical TIMES Branch DAILY HYDRALAZINE 2021-11 Yes [id number] TAKE 1 Univers 100 mg 0-05 TABLET BY ity of tablet 00:00: [facility] THREE Medical TIMES Branch DAILY HYDRALAZINE 2021-11 Yes [id number] TAKE 1 Univers 100 mg 0-05 TABLET BY ity of tablet 00:00: [facility] THREE Medical TIMES Branch DAILY HYDRALAZINE 2021-11 Yes [id number] TAKE 1 Univers 100 mg 0-05 TABLET BY ity of tablet 00:00: [facility] Medical TIMES Branch DAILY NITROGLYCER Yes PLACE 1 Uni vers IN 0.4 mg 9-26 TABLET ity of sublingual 00:00: [place] THE [place] tablet 00 TONGUE Medical EVERY 5 Branch MINUTES NEEDED FOR CHEST PAIN. INSULIN Yes USE TWICE Unive rs SYRINGE-NEE - DAILY WITH it y of DLE U-100 1 00:00: MEALS [place] mL 31 gauge 00 Medical x 03/16 Syrg Branch GABAPENTIN Yes [id number] TAKE 1 Univers 600 mg 9-26 TABLET BY ity of tablet 00:00: [facility] 00 THREE Medical TIMES Branch DAILY NITROGLYCER Yes PLACE 1 Uni vers IN 0.4 mg 9-26 TABLET ity of sublingual 00:00: [place] THE [place] tablet 00 TONGUE Medical EVERY 5 Branch MINUTES NEEDED FOR CHEST PAIN. INSULIN 2021-0 Yes USE TWICE Unive rs SYRINGE-NEE 9-26 DAILY WITH it y of DLE U-100 1 00:00: MEALS [place] mL 31 gauge 00 Medical x 5/16 Syrg Branch GABAPENTIN 2021-0 Yes [id number] TAKE 1 Univers 600 mg 9-26 TABLET BY ity of tablet 00:00: MOUTH [place] 00 THREE Medical TIMES Branch DAILY NITROGLYCER 2021-[address] 1 Uni vers IN 0.4 mg 9-26 TABLET ity of sublingual 00:00: [place] THE [place] tablet 00 TONGUE Medical EVERY 5 Branch MINUTES NEEDED FOR CHEST PAIN. INSULIN 0 Yes USE TWICE Unive rs SYRINGE-NEE 9-26 DAILY WITH it y of DLE U-100 1 00:00: MEALS [place] mL 31 gauge 00 Medical x 5/16 Syrg Branch GABAPENTIN 2021-0 Yes [id number] TAKE 1 Univers 600 mg 9-26 TABLET BY ity of tablet 00:00: MOUTH [place] 00 THREE Medical TIMES Branch DAILY NITROGLYCER 2021-[address] 1 Uni vers IN 0.4 mg 9-26 TABLET ity of sublingual 00:00: [place] THE [place] tablet 00 TONGUE Medical EVERY 5 Branch MINUTES NEEDED FOR CHEST PAIN. INSULIN 0 Yes USE TWICE Unive rs SYRINGE-NEE 9-26 DAILY WITH it y of DLE U-100 1 00:00: MEALS [place] mL 31 gauge 00 Medical x 5/16 Syrg Branch GABAPENTIN 2021-0 Yes [id number] TAKE 1 Univers 600 mg 9-26 TABLET BY ity of tablet 00:00: MOUTH [place] 00 THREE Medical TIMES Branch DAILY NITROGLYCER 2021-[address] 1 Uni vers IN 0.4 mg 9-26 TABLET ity of sublingual 00:00: [place] THE [place] tablet 00 TONGUE Medical EVERY 5 Branch MINUTES NEEDED FOR CHEST PAIN. INSULIN 0 Yes USE TWICE Unive rs SYRINGE-NEE 9-26 DAILY WITH it y of DLE U-100 1 00:00: MEALS [place] mL 31 gauge 00 Medical x 5/16 Syrg Branch INSULIN 2021-0 Yes USE TWICE Unive rs SYRINGE-NEE 9-26 DAILY WITH it y of DLE U-100 1 00:00: MEALS [place] mL 31 gauge 00 Medical x 5/16 Syrg Branch INSULIN 2021-0 Yes USE TWICE Unive rs SYRINGE-NEE 9-26 DAILY WITH it y of DLE U-100 1 00:00: MEALS [place] mL 31 gauge 00 Medical x 5/16 Syrg Branch INSULIN 2021-0 Yes USE TWICE Unive rs SYRINGE-NEE 9-26 DAILY WITH it y of DLE U-100 1 00:00: MEALS [place] mL 31 gauge 00 Medical x 5/16 Syrg Branch INSULIN 2021-0 Yes USE TWICE Unive rs SYRINGE-NEE 9-26 DAILY WITH it y of DLE U-100 1 00:00: MEALS [place] mL 31 gauge 00 Medical x 5/16 Syrg Branch INSULIN 2021-0 Yes USE TWICE Unive rs SYRINGE-NEE 9-26 DAILY WITH it y of DLE U-100 1 00:00: MEALS [place] mL 31 gauge 00 Medical x 5/16 Syrg Branch INSULIN 2021-0 Yes USE TWICE Unive rs SYRINGE-NEE 9-26 DAILY WITH it y of DLE U-100 1 00:00: MEALS [place] mL 31 gauge 00 Medical x 5/16 Syrg Branch INSULIN 2021-0 Yes USE TWICE Unive rs SYRINGE-NEE 9-26 DAILY WITH it y of DLE U-100 1 00:00: MEALS [place] mL 31 gauge 00 Medical x 5/16 Syrg Branch INSULIN 2021-0 Yes USE TWICE Unive rs SYRINGE-NEE 9-26 DAILY WITH it y of DLE U-100 1 00:00: MEALS [place] mL 31 gauge 00 Medical x 5/16 Syrg Branch NITROGLYCER 2021-0 2021- No PLACE 1 Un ally IN 0.4 mg 9-26 10-24 TABLET ity of sublingual 00:00: 00:00 UNDER THE [place] tablet 00 :00 TONGUE Medical EVERY 5 Branch MINUTES NEEDED FOR CHEST PAIN. GABAPENTIN 2021-0 2021- No [id number] TAKE 1 [facility] 600 mg 9-26 10-21 TABLET BY ity of tablet 00:00: 00:00 MOUTH [place] 00 :00 THREE Medical TIMES Branch DAILY COLCHICINE 2021-0 Yes [id number] .6mg TAKE 1 U nivers 0.6 mg 9-19 TABLET BY ity of tablet 00:00: MOUTH [place] 00 DAILY Medical Branch COLCHICINE 2021-0 Yes [id number] .6mg TAKE 1 U nivers 0.6 mg 9-19 TABLET BY ity of tablet 00:00: MOUTH [place] DAILY Medical Branch COLCHICINE 2022-0 Yes [id number] .6mg TAKE 1 U nivers 0.6 mg 9-19 TABLET BY ity of tablet 00:00: [facility] DAILY Medical Branch COLCHICINE 2022-0 Yes [id number] .6mg TAKE 1 U nivers 0.6 mg 9-19 TABLET BY ity of tablet 00:00: MOUTH [place] DAILY Medical Branch COLCHICINE 2022-0 Yes [id number] .6mg TAKE 1 U nivers 0.6 mg 9-19 TABLET BY ity of tablet 00:00: [facility] DAILY Medical Branch COLCHICINE 2022-0 Yes [id number] .6mg TAKE 1 U nivers 0.6 mg 9-19 TABLET BY ity of tablet 00:00: [facility] DAILY Medical Branch COLCHICINE 2022-0 Yes [id number] .6mg TAKE 1 U nivers 0.6 mg 9-19 TABLET BY ity of tablet 00:00: [facility] DAILY Medical Branch COLCHICINE 2022-0 Yes [id number] .6mg TAKE 1 U nivers 0.6 mg 9-19 TABLET BY ity of tablet 00:00: [facility] DAILY Medical Branch COLCHICINE 2022-0 Yes [id number] .6mg TAKE 1 U nivers 0.6 mg 9-19 TABLET BY ity of tablet 00:00: [facility] DAILY Medical Branch COLCHICINE 2022-0 Yes [id number] .6mg TAKE 1 U nivers 0.6 mg 9-19 TABLET BY ity of tablet 00:00: [facility] DAILY Medical Branch COLCHICINE 2022-0 Yes [id number] .6mg TAKE 1 U nivers 0.6 mg 9-19 TABLET BY ity of tablet 00:00: [facility] DAILY Medical Branch COLCHICINE 2022-0 Yes [id number] .6mg TAKE 1 U nivers 0.6 mg 9-19 TABLET BY ity of tablet 00:00: [facility] DAILY Medical Branch COLCHICINE 2022-0 Yes [id number] .6mg TAKE 1 U nivers 0.6 mg 9-19 TABLET BY ity of tablet 00:00: [facility] DAILY Medical Branch COLCHICINE 2022-0 Yes [id number] .6mg TAKE 1 U nivers 0.6 mg 9-19 TABLET BY ity of tablet 00:00: MOUTH [place] 00 DAILY Medical Branch COLCHICINE 2021-0 Yes [id number] .6mg TAKE 1 U nivers 0.6 mg 9-19 TABLET BY ity of tablet 00:00: MOUTH [place] 00 DAILY Medical Branch HYDROcodone 2021-0 Yes 2745 1{tbl} Take 1 Un ally -acetaminop 9-08 tablet by ity of hen 7.5-325 00:00: mouth [place] mg per 00 every 6 Medical tablet (six) Branch hours as needed for Pain. Indication s: chronic pain HYDROcodone 2021-0 Yes 2745 1{tbl} Take 1 Un ally -acetaminop 9-08 tablet by ity of hen 7.5-325 00:00: mouth [place] mg per 00 every 6 Medical tablet (six) Branch hours as needed for Pain. Indication s: chronic pain HYDROcodone 2021-0 Yes 2745 1{tbl} Take 1 Un ally -acetaminop 9-08 tablet by ity of hen 7.5-325 00:00: mouth [place] mg per 00 every 6 Medical tablet (six) Branch hours as needed for Pain. Indication s: chronic pain HYDROcodone 2021-0 Yes 2745 1{tbl} Take 1 Un ally -acetaminop 9-08 tablet by ity of hen 7.5-325 00:00: mouth [place] mg per 00 every 6 Medical tablet (six) Branch hours as needed for Pain. Indication s: chronic pain HYDROcodone 2021-0 Yes 2745 1{tbl} Take 1 Un ally -acetaminop 9-08 tablet by ity of hen 7.5-325 00:00: mouth [place] mg per 00 every 6 Medical tablet (six) Branch hours as needed for Pain. Indication s: chronic pain HYDROcodone 2021-0 Yes 2745 1{tbl} Take 1 Un ally -acetaminop 9-08 tablet by ity of hen 7.5-325 00:00: mouth [place] mg per 00 every 6 Medical tablet (six) Branch hours as needed for Pain. Indication s: chronic pain HYDROcodone 2021-0 2021- No 2745 1{tbl} Take 1 U nivers -acetaminop 9-08 10-06 tablet by it y of hen 7.5-325 00:00: 00:00 [place] mg per 00 :00 every 6 Medical tablet (six) Branch hours as needed for Pain. Indication s: chronic pain albuterol Yes albuterol [facility] (PROVENTIL) 07-08 sulfate [facility] ge (2.5 mg/3 12:00: 2.5 mg/3 of mL) 0.083% 32 mL (0.083 Medi patsy nebulizer %) e solution solution for nebulizati on metoprolol Yes 100mg Take 100 [facility] (TOPROL-XL) 07-08 mg by [facility] 100 MG XL 12:00: mouth. of tablet 32 Medicin e albuterol Yes albuterol [facility] 108 (90 07-08 sulfate [facility]) 12:00: HFA 90 of mcg/act 32 mcg/actuat Medici n inhaler ion e aerosol inhaler Mesalamine Yes mesalamine [facility] 0.375 g 07-08 ER 0.375 [facility] CP24 12:00: gram of 32 capsule,ex Medicin tended e release 24 hr hydrochloro Yes 25mg Take 25 mg [facility] thiazide 07-08 by mouth. Colleg e (HYDRODIURI 12:00: of L) 25 MG 32 Medicin tablet e diclofenac Yes diclofenac [facility] (VOLTAREN) 07-08 sodium 75 [facility] 75 MG EC 12:00: mg of tablet 32 tablet,del Medicin ayed e release TAKE 1 TABLET BY MOUTH TWICE DAILY WITH MEALS cyclobenzap Yes cyclobenza [facility] rine 07-08 w[facility] 10 [facility] (FLEXERIL) 12:00: mg tablet of 10 MG 32 TAKE 1 Medicin tablet TABLET BY e MOUTH EVERY NIGHT AT BEDTIME NEEDED FOR MUSCLE SPASM OR EAR PAIN clonidine Yes clonidine [facility] (CATAPRESS) 07-08 HCl 0.2 mg Co llege 0.2 MG 12:00: tablet of tablet 32 TAKE 1 Medicin TABLET BY e MOUTH THREE TIMES DAILY atorvastati Yes atorvastat [facility] n (LIPITOR) 07-08 in 20 mg [facility] 20 MG 12:00: tablet of tablet 32 TAKE 1 Medicin TABLET BY e MOUTH EVERY DAY amlodipine Yes 10mg Take 10 mg [facility] (NORVASC) 07-08 by mouth. Colle ge 10 MG 12:00: of tablet 32 Medicin e alprazolam Yes 2mg Take 2 mg [facility] (XANAX) 07-08 by mouth. College 0.25 MG 12:00: of tablet 32 Medicin e allopurinol Yes 100mg Take 100 [facility] (ZYLOPRIM) 07-08 mg by [facility] 100 MG 12:00: mouth. of tablet 32 Medicin e Fluticasone Yes Trelegy [facility] -Umeclidin- 07-08 Ellipta Colle ge Vilant 12:00: 100 of (TRELEGY 32 mcg-62.5 Medicin ELLIPTA) mcg-25 mcg e 100-62.5-25 powder for MCG/INH inhalation AEPB INHALE 1 PUFF BY MOUTH EVERY DAY albuterol Yes albuterol [facility] (PROVENTIL) 07-08 sulfate [place] ge (2.5 mg/3 12:00: 2.5 mg/3 of mL) 0.083% 32 mL (0.083 Medi patsy nebulizer %) e solution solution for nebulizati on metoprolol Yes 100mg Take 100 [facility] (TOPROL-XL) 07-08 mg by [place] 100 MG XL 12:00: mouth. of tablet 32 Medicin e albuterol Yes albuterol [facility] 108 (90 07-08 sulfate [facility] base) 12:00: HFA 90 of mcg/act 32 mcg/actuat Medici n inhaler ion e aerosol inhaler Mesalamine Yes mesalamine [facility] 0.375 g 07-08 ER 0.375 [facility] CP24 12:00: gram of 32 capsule,ex Medicin tended e release 24 hr hydrochloro Yes 25mg Take 25 mg [facility] thiazide 07-08 by mouth. Colleg e (HYDRODIURI 12:00: of L) 25 MG 32 Medicin tablet e diclofenac Yes diclofenac [facility] (VOLTAREN) 07-08 sodium 75 [facility] 75 MG EC 12:00: mg of tablet 32 tablet,del Medicin ayed e release TAKE 1 TABLET BY MOUTH TWICE DAILY WITH MEALS cyclobenzap Yes cyclobenza [facility] rine 07-08 wiley 10 College (FLEXERIL) 12:00: mg tablet of 10 MG 32 TAKE 1 Medicin tablet TABLET BY e MOUTH EVERY NIGHT AT BEDTIME NEEDED FOR MUSCLE SPASM OR EAR PAIN clonidine Yes clonidine [facility] (CATAPRESS) 07-08 HCl 0.2 mg Co llege 0.2 MG 12:00: tablet of tablet 32 TAKE 1 Medicin TABLET BY e MOUTH THREE TIMES DAILY atorvastati Yes atorvastat [facility] n (LIPITOR) 07-08 in 20 mg [facility] 20 MG 12:00: tablet of tablet 32 TAKE 1 Medicin TABLET BY e MOUTH EVERY DAY amlodipine Yes 10mg Take 10 mg [facility] (NORVASC) 07-08 by mouth. Colle ge 10 MG 12:00: of tablet 32 Medicin e alprazolam Yes 2mg Take 2 mg [facility] (XANAX) 07-08 by mouth. College 0.25 MG 12:00: of tablet 32 Medicin e allopurinol Yes 100mg Take 100 [facility] (ZYLOPRIM) 07-08 mg by [place] 100 MG 12:00: mouth. of tablet 32 Medicin e Fluticasone Yes Trelegy [facility] -Umeclidin- 07-08 Ellipta Colle ge Vilant 12:00: 100 of (TRELEGY 32 mcg-62.5 Medicin ELLIPTA) mcg-25 mcg e 100-62.5-25 powder for MCG/INH inhalation AEPB INHALE 1 PUFF BY MOUTH EVERY DAY HYDRALAZINE Yes [id number] TAKE 1 [facility] 100 mg 9-06 TABLET BY ity of tablet 00:00: MOUTH [place] 00 THREE Medical TIMES Branch DAILY HYDRALAZINE 0 Yes [id number] TAKE 1 [facility] 100 mg 9-06 TABLET BY ity of tablet 00:00: MOUTH [place] 00 THREE Medical TIMES Branch DAILY HYDRALAZINE 0 Yes [id number] TAKE 1 [facility] 100 mg 9-06 TABLET BY ity of tablet 00:00: MOUTH [place] 00 THREE Medical TIMES Branch DAILY HYDRALAZINE 0 Yes [id number] TAKE 1 [facility] 100 mg 9-06 TABLET BY ity of tablet 00:00: MOUTH [place] 00 THREE Medical TIMES Branch DAILY HYDRALAZINE 2022-0 Yes [id number] TAKE 1 [facility] 100 mg 9-06 TABLET BY ity of tablet 00:00: MOUTH [place] 00 THREE Medical TIMES Branch DAILY HYDRALAZINE 2-0 Yes [id number] TAKE 1 [facility] 100 mg 9-06 TABLET BY ity of tablet 00:00: MOUTH [place] 00 THREE Medical TIMES Branch DAILY HYDRALAZINE 2-0 2022- No [id number] TAKE 1 [facility] 100 mg 9-06 10-05 TABLET BY ity of tablet 00:00: 00:00 MOUTH [place] 00 :00 THREE Medical TIMES Branch DAILY GABAPENTIN 2-0 Yes [id number] TAKE 1 [facility] 600 mg 8-31 TABLET BY ity of tablet 00:00: MOUTH [place] 00 THREE Medical TIMES Branch DAILY GABAPENTIN 2-0 Yes [id number] TAKE 1 [facility] 600 mg 8-31 TABLET BY ity of tablet 00:00: MOUTH [place] 00 THREE Medical TIMES Branch DAILY GABAPENTIN 2-0 Yes [id number] TAKE 1 [facility] 600 mg 8-31 TABLET BY ity of tablet 00:00: MOUTH [place] 00 THREE Medical TIMES Branch DAILY GABAPENTIN 2-0 Yes [id number] TAKE 1 [facility] 600 mg 8-31 TABLET BY ity of tablet 00:00: MOUTH [place] 00 THREE Medical TIMES Branch DAILY GABAPENTIN 2-0 2- No [id number] TAKE 1 [facility] 600 mg 8-31 09-26 TABLET BY ity of tablet 00:00: 00:00 MOUTH [place] 00 :00 THREE Medical TIMES Branch DAILY METOPROLOL 2-0 Yes TAKE 1 Unive rs TARTRATE 8-22 TABLET BY ity of 100 mg 00:00: MOUTH [place] tablet 00 TWICE Medical DAILY Branch METOPROLOL 2-0 Yes TAKE 1 Unive rs TARTRATE 8-22 TABLET BY ity of 100 mg 00:00: MOUTH [place] tablet 00 TWICE Medical DAILY Branch METOPROLOL 2-0 Yes TAKE 1 Unive rs TARTRATE 8-22 TABLET BY ity of 100 mg 00:00: MOUTH [place] tablet 00 TWICE Medical DAILY Branch METOPROLOL 2-0 Yes TAKE 1 Unive rs TARTRATE 8-22 TABLET BY ity of 100 mg 00:00: MOUTH [place] tablet 00 TWICE Medical DAILY Branch METOPROLOL 2-0 Yes TAKE 1 Unive rs TARTRATE 8-22 TABLET BY ity of 100 mg 00:00: MOUTH [place] tablet 00 TWICE Medical DAILY Branch METOPROLOL 0 Yes TAKE 1 Unive rs TARTRATE 8-22 TABLET BY ity of 100 mg 00:00: MOUTH [place] tablet 00 TWICE Medical DAILY Branch METOPROLOL 0 Yes TAKE 1 Unive rs TARTRATE 8-22 TABLET BY ity of 100 mg 00:00: MOUTH [place] tablet 00 TWICE Medical DAILY Branch METOPROLOL 0 Yes TAKE 1 Unive rs TARTRATE 8-22 TABLET BY ity of 100 mg 00:00: MOUTH [place] tablet 00 TWICE Medical DAILY Branch METOPROLOL 0 Yes TAKE 1 Unive rs TARTRATE 8-22 TABLET BY ity of 100 mg 00:00: MOUTH [place] tablet 00 TWICE Medical DAILY Branch METOPROLOL 0 Yes TAKE 1 Unive rs TARTRATE 8-22 TABLET BY ity of 100 mg 00:00: MOUTH [place] tablet 00 TWICE Medical DAILY Branch METOPROLOL 0 Yes TAKE 1 Unive rs TARTRATE 8-22 TABLET BY ity of 100 mg 00:00: MOUTH [place] tablet 00 TWICE Medical DAILY Branch METOPROLOL 0 Yes TAKE 1 Unive rs TARTRATE 8-22 TABLET BY ity of 100 mg 00:00: MOUTH [place] tablet 00 TWICE Medical DAILY Branch METOPROLOL 0 Yes TAKE 1 Unive rs TARTRATE 8-22 TABLET BY ity of 100 mg 00:00: MOUTH [place] tablet 00 TWICE Medical DAILY Branch METOPROLOL 0 Yes TAKE 1 Unive rs TARTRATE 8-22 TABLET BY ity of 100 mg 00:00: MOUTH [place] tablet 00 TWICE Medical DAILY Branch METOPROLOL 0 Yes TAKE 1 Unive rs TARTRATE 8-22 TABLET BY ity of 100 mg 00:00: MOUTH [place] tablet 00 TWICE Medical DAILY Branch METOPROLOL 0 Yes TAKE 1 Unive rs TARTRATE 8-22 TABLET BY ity of 100 mg 00:00: MOUTH [place] tablet 00 TWICE Medical DAILY Branch METOPROLOL 0 Yes TAKE 1 Unive rs TARTRATE 8-22 TABLET BY ity of 100 mg 00:00: MOUTH [place] tablet 00 TWICE Medical DAILY Branch METOPROLOL 0 Yes TAKE 1 Unive rs TARTRATE 8-22 TABLET BY ity of 100 mg 00:00: MOUTH [place] tablet 00 TWICE Medical DAILY Branch METOPROLOL 2022-0 Yes TAKE 1 Unive rs TARTRATE 8-22 TABLET BY ity of 100 mg 00:00: MOUTH [place] tablet 00 TWICE Medical DAILY Branch metoprolol Yes [id number] TAKE 1 [facility] (LOPRESSOR) 8-22 TABLET BY Col lege 100 MG 00:00: MOUTH of tablet 00 TWICE Medicin DAILY e metoprolol Yes [id number] TAKE 1 [facility] (LOPRESSOR) 8-22 TABLET BY Col lege 100 MG 00:00: MOUTH of tablet 00 TWICE Medicin DAILY e BD PEN 0 Yes [id number] USE [facility] NEEDLE DEVORAH 8-17 DIRECTED [facility] 2ND GEN 32G 00:00: EVERY DAY o f X 4 MM MISC 00 Medicin e alprazolam Yes [id number] TAKE 1 [facility] (XANAX) 2 8-17 TABLET BY Colle ge MG tablet 00:00: MOUTH of 00 THREE Medicin TIMES e DAILY NEEDED FOR ANXIETY BD PEN Yes [id number] USE [facility] NEEDLE DEVORAH 8-17 DIRECTED [facility] 2ND GEN 32G 00:00: EVERY DAY o f X 4 MM MISC 00 Medicin e alprazolam Yes [id number] TAKE 1 [facility] (XANAX) 2 8-17 TABLET BY Colle ge MG tablet 00:00: MOUTH of 00 THREE Medicin TIMES e DAILY NEEDED FOR ANXIETY albuterol Yes albuterol [facility] (PROVENTIL) 8-16 sulfate Colle ge (2.5 mg/3 08:03: 2.5 mg/3 of mL) 0.083% 35 mL (0.083 Medi patsy nebulizer %) e solution solution for nebulizati on Insulin Yes Inject [facility] Aspart Prot 8-16 into the [facility] & Aspart 08:03: skin. of (70-30) 100 35 Medicin UNIT/ML e SUPN mirtazapine Yes 15mg Take 15 mg [facility] (REMERON) 8-16 by mouth. Colle ge 15 MG 08:03: of tablet 35 Medicin e metoprolol Yes 100mg Take 100 [facility] (TOPROL-XL) 8-16 mg by [place] 100 MG XL 08:03: mouth. of tablet 35 Medicin e pantoprazol Yes 20mg Take 20 mg [facility] e 8-16 by mouth College (PROTONIX) 08:00: daily. of 20 MG 33 Medicin tablet e VICTOZA 18 Yes ADMINISTER [facility] MG/3ML SOPN 8-11 1.8 MG Colleg e 00:00: UNDER THE of 00 SKIN EVERY Medicin DAY e VICTOZA 18 Yes ADMINISTER [facility] MG/3ML SOPN 8-11 1.8 MG Colleg e 00:00: UNDER THE of 00 SKIN EVERY Medicin DAY e hydrocodone Yes TAKE 1 [facility] -acetaminop 8-09 TABLET BY Col nu hen (NORCO) 00:00: MOUTH of 7.5-325 MG 00 EVERY 6 Medici n per tablet HOURS e NEEDED FOR PAIN OR CHRONIC PAIN LISINOPRIL Yes [id number] TAKE 1/2 [facility] 40 mg 8-08 TABLET BY ity of tablet 00:00: MOUTH [place] 00 TWICE Medical DAILY Branch HYDROcodone 2021-0 Yes [id number] 1{tbl} Take 1 Un ally -acetaminop 8-08 tablet by ity of hen 7.5-325 00:00: mouth [place] mg per 00 every 6 Medical tablet (six) Branch hours as needed for Pain. Indication s: chronic pain HYDROcodone 2021-0 Yes 2745 1{tbl} Take 1 Un ally -acetaminop 8-08 tablet by ity of hen 7.5-325 00:00: mouth [place] mg per 00 every 6 Medical tablet (six) Branch hours as needed for Pain. Indication s: chronic pain LISINOPRIL 2021-0 Yes [id number] TAKE 1/2 [facility] 40 mg 8-08 TABLET BY ity of tablet 00:00: MOUTH [place] 00 TWICE Medical DAILY Branch HYDROcodone 2021-0 Yes [id number] 1{tbl} Take 1 Un ally -acetaminop 8-08 tablet by ity of hen 7.5-325 00:00: mouth [place] mg per 00 every 6 Medical tablet (six) Branch hours as needed for Pain. Indication s: chronic pain LISINOPRIL 2021-0 Yes [id number] TAKE 1/2 [facility] 40 mg 8-08 TABLET BY ity of tablet 00:00: MOUTH [place] 00 TWICE Medical DAILY Branch HYDROcodone 2021-0 Yes [id number] 1{tbl} Take 1 Un ally -acetaminop 8-08 tablet by ity of hen 7.5-325 00:00: mouth [place] mg per 00 every 6 Medical tablet (six) Branch hours as needed for Pain. Indication s: chronic pain LISINOPRIL 2021-0 Yes [id number] TAKE 1/2 [facility] 40 mg 8-08 TABLET BY ity of tablet 00:00: MOUTH [place] 00 TWICE Medical DAILY Branch LISINOPRIL 2-0 Yes [id number] TAKE 1/2 [facility] 40 mg 8-08 TABLET BY ity of tablet 00:00: MOUTH [place] 00 TWICE Medical DAILY Branch LISINOPRIL 2021-0 Yes [id number] TAKE 1/2 [facility] 40 mg 8-08 TABLET BY ity of tablet 00:00: MOUTH [place] 00 TWICE Medical DAILY Branch LISINOPRIL 2021-0 Yes [id number] TAKE 1/2 [facility] 40 mg 8-08 TABLET BY ity of tablet 00:00: MOUTH [place] 00 TWICE Medical DAILY Branch LISINOPRIL 2021-0 Yes [id number] TAKE 1/2 [facility] 40 mg 8-08 TABLET BY ity of tablet 00:00: MOUTH [place] 00 TWICE Medical DAILY Branch LISINOPRIL 2021-0 Yes [id number] TAKE 1/2 [facility] 40 mg 8-08 TABLET BY ity of tablet 00:00: MOUTH [place] 00 TWICE Medical DAILY Branch LISINOPRIL 2021-0 Yes [id number] TAKE 1/2 [facility] 40 mg 8-08 TABLET BY ity of tablet 00:00: MOUTH [place] 00 TWICE Medical DAILY Branch LISINOPRIL 2-0 Yes [id number] TAKE 1/2 [facility] 40 mg 8-08 TABLET BY ity of tablet 00:00: MOUTH [place] 00 TWICE Medical DAILY Branch LISINOPRIL 2-0 Yes [id number] TAKE 1/2 [facility] 40 mg 8-08 TABLET BY ity of tablet 00:00: MOUTH [place] 00 TWICE Medical DAILY Branch LISINOPRIL 2-0 Yes [id number] TAKE 1/2 [facility] 40 mg 8-08 TABLET BY ity of tablet 00:00: MOUTH [place] 00 TWICE Medical DAILY Branch LISINOPRIL 2-0 Yes [id number] TAKE 1/2 [facility] 40 mg 8-08 TABLET BY ity of tablet 00:00: MOUTH [place] 00 TWICE Medical DAILY Branch LISINOPRIL 2022-0 Yes [id number] TAKE 1/2 [facility] 40 mg 8-08 TABLET BY ity of tablet 00:00: MOUTH [place] 00 TWICE Medical DAILY Branch LISINOPRIL 2021-0 Yes [id number] TAKE 1/2 [facility] 40 mg 8-08 TABLET BY ity of tablet 00:00: MOUTH [place] 00 TWICE Medical DAILY Branch LISINOPRIL 2021-0 Yes [id number] TAKE 1/2 [facility] 40 mg 8-08 TABLET BY ity of tablet 00:00: MOUTH TWICE Medical DAILY Branch LISINOPRIL 2021-0 Yes [id number] TAKE 1/2 [facility] 40 mg 8-08 TABLET BY ity of tablet 00:00: MOUTH [place] 00 TWICE Medical DAILY Branch LISINOPRIL 2021-0 Yes [id number] TAKE 1/2 [facility] 40 mg 8-08 TABLET BY ity of tablet 00:00: MOUTH [place] 00 TWICE Medical DAILY Branch LISINOPRIL 2021-0 Yes [id number] TAKE 1/2 [facility] 40 mg 8-08 TABLET BY ity of tablet 00:00: MOUTH TWICE Medical DAILY Branch lisinopril 0 Yes TAKE 1/2 [facility] (PRINIVIL, 8-08 TABLET BY [facility] ZESTRIL) 40 00:00: MOUTH of MG tablet 00 TWICE Medicin DAILY e hydrALAZINE 0 Yes TAKE 1 [facility] (APRESOLINE 8-08 TABLET BY Col lege ) 100 MG 00:00: MOUTH of tablet 00 THREE Medicin TIMES e DAILY lisinopril 0 Yes TAKE 1/2 [facility] (PRINIVIL, 8-08 TABLET BY [facility] ZESTRIL) 40 00:00: MOUTH of MG tablet 00 TWICE Medicin DAILY e hydrALAZINE 0 Yes TAKE 1 [facility] (APRESOLINE 8-08 TABLET BY Col lege ) 100 MG 00:00: MOUTH of tablet 00 THREE Medicin TIMES e DAILY lisinopril 0 Yes TAKE 1/2 [facility] (PRINIVIL, 8-08 TABLET BY [facility] ZESTRIL) 40 00:00: MOUTH of MG tablet 00 TWICE Medicin DAILY e HYDROcodone 0 2021- No 2745 1{tbl} Take 1 [facility] n[facility] -acetaminop 8-08 09-08 tablet by it y of hen 7.5-325 00:00: 00:00 mouth [place] mg per 00 :00 every 6 Medical tablet (six) Branch hours as needed for Pain. Indication s: chronic pain HUMULIN Yes ADMINISTER [facility] 70/30 8-04 70 UNITS College (70-30) 100 00:00: UNDER THE o f UNIT/ML 00 SKIN EVERY Medici n injection MORNING e THEN ADMINISTER 60 UNITS UNDER THE SKIN EVERY EVENING HUMULIN Yes ADMINISTER [facility] 70/30 8-04 70 UNITS College (70-30) 100 00:00: UNDER THE o f UNIT/ML 00 SKIN EVERY Medici n injection MORNING e THEN ADMINISTER 60 UNITS UNDER THE SKIN EVERY EVENING HUMULIN Yes ADMINISTER [facility] 70/30 8-04 70 UNITS College (70-30) 100 00:00: UNDER THE o f UNIT/ML 00 SKIN EVERY Medici n injection MORNING e THEN ADMINISTER 60 UNITS UNDER THE SKIN EVERY EVENING HUMULIN Yes [id number] ADMINISTER [facility] 70/30 U-100 8-03 70 UNITS ity of INSULIN 100 00:00: UND[place] THE [place] unit/mL 00 SKIN EVERY Medica l (70-30) MORNING Branch suspension THEN ADMINISTER 60 UNITS UNDER THE SKIN EVERY EVENING HUMULIN Yes [id number] ADMINISTER [facility] 70/30 U-100 8-03 70 UNITS ity of INSULIN 100 00:00: UNDER THE [place] unit/mL 00 SKIN EVERY Medica l (70-30) MORNING Branch suspension THEN ADMINISTER 60 UNITS UNDER THE SKIN EVERY EVENING GABAPENTIN 2021-0 Yes [id number] TAKE 1 [facility] 600 mg 8-03 TABLET BY ity of tablet 00:00: MOUTH [place] THREE Medical TIMES Branch DAILY HUMULIN 0 Yes [id number] ADMINISTER [facility] 70/30 U-100 8-03 70 UNITS ity of INSULIN 100 00:00: UNDER THE [place] unit/mL 00 SKIN EVERY Medica l (70-30) MORNING Branch suspension THEN ADMINISTER 60 UNITS UNDER THE SKIN EVERY EVENING GABAPENTIN 0 Yes [id number] TAKE 1 [facility] 600 mg 8-03 TABLET BY ity of tablet 00:00: MOUTH [place] THREE Medical TIMES Branch DAILY HUMULIN 0 Yes [id number] ADMINISTER [facility] 70/30 U-100 8-03 70 UNITS ity of INSULIN 100 00:00: UNDER THE [place] unit/mL 00 SKIN EVERY Medica l (70-30) MORNING Branch suspension THEN ADMINISTER 60 UNITS UNDER THE SKIN EVERY EVENING GABAPENTIN 0 Yes [id number] TAKE 1 [facility] 600 mg 8-03 TABLET BY ity of tablet 00:00: MOUTH THREE Medical TIMES Branch DAILY HUMULIN Yes [id number] ADMINISTER [facility] 70/30 U-100 8-03 70 UNITS ity of INSULIN 100 00:00: UNDER THE [place] unit/mL 00 SKIN EVERY Medica l (70-30) MORNING Branch suspension THEN ADMINISTER 60 UNITS UNDER THE SKIN EVERY EVENING GABAPENTIN Yes [id number] TAKE 1 [facility] 600 mg 8-03 TABLET BY ity of tablet 00:00: MOUTH THREE Medical TIMES Branch DAILY HUMULIN Yes [id number] ADMINISTER [facility] 70/30 U-100 8-03 70 UNITS ity of INSULIN 100 00:00: UNDER THE [place] unit/mL 00 SKIN EVERY Medica l (70-30) MORNING Branch suspension THEN ADMINISTER 60 UNITS UNDER THE SKIN EVERY EVENING HUMULIN Yes [id number] ADMINISTER [facility] 70/30 U-100 8-03 70 UNITS ity of INSULIN 100 00:00: UNDER THE [place] unit/mL 00 SKIN EVERY Medica l (70-30) MORNING Branch suspension THEN ADMINISTER 60 UNITS UNDER THE SKIN EVERY EVENING HUMULIN Yes [id number] ADMINISTER [facility] 70/30 U-100 8-03 70 UNITS ity of INSULIN 100 00:00: UNDER THE [place] unit/mL 00 SKIN EVERY Medica l (70-30) MORNING Branch suspension THEN ADMINISTER 60 UNITS UNDER THE SKIN EVERY EVENING HUMULIN Yes [id number] ADMINISTER [facility] 70/30 U-100 8-03 70 UNITS ity of INSULIN 100 00:00: UNDER THE [place] unit/mL 00 SKIN EVERY Medica l (70-30) MORNING Branch suspension THEN ADMINISTER 60 UNITS UNDER THE SKIN EVERY EVENING HUMULIN Yes [id number] ADMINISTER [facility] 70/30 U-100 8-03 70 UNITS ity of INSULIN 100 00:00: UNDER THE [place] unit/mL 00 SKIN EVERY Medica l (70-30) MORNING Branch suspension THEN ADMINISTER 60 UNITS UNDER THE SKIN EVERY EVENING HUMULIN Yes [id number] ADMINISTER [facility] 70/30 U-100 8-03 70 UNITS ity of INSULIN 100 00:00: UNDER THE [place] unit/mL 00 SKIN EVERY Medica l (70-30) MORNING Branch suspension THEN ADMINISTER 60 UNITS UNDER THE SKIN EVERY EVENING HUMULIN Yes [id number] ADMINISTER [facility] 70/30 U-100 8-03 70 UNITS ity of INSULIN 100 00:00: UNDER THE [place] unit/mL 00 SKIN EVERY Medica l (70-30) MORNING Branch suspension THEN ADMINISTER 60 UNITS UNDER THE SKIN EVERY EVENING HUMULIN Yes [id number] ADMINISTER [facility] 70/30 U-100 8-03 70 UNITS ity of INSULIN 100 00:00: UNDER THE [place] unit/mL 00 SKIN EVERY Medica l (70-30) MORNING Branch suspension THEN ADMINISTER 60 UNITS UNDER THE SKIN EVERY EVENING HUMULIN Yes [id number] ADMINISTER [facility] 70/30 U-100 8-03 70 UNITS ity of INSULIN 100 00:00: UNDER THE [place] unit/mL 00 SKIN EVERY Medica l (70-30) MORNING Branch suspension THEN ADMINISTER 60 UNITS UNDER THE SKIN EVERY EVENING HUMULIN Yes [id number] ADMINISTER [facility] 70/30 U-100 8-03 70 UNITS ity of INSULIN 100 00:00: [place] unit/mL 00 SKIN EVERY Medica l (70-30) MORNING Branch suspension THEN ADMINISTER 60 UNITS UNDER THE SKIN EVERY EVENING HUMULIN Yes [id number] ADMINISTER [facility] 70/30 U-100 8-03 70 UNITS ity of INSULIN 100 00:00: [place] [place] unit/mL 00 SKIN EVERY Medica l (70-30) MORNING Branch suspension THEN ADMINISTER 60 UNITS UNDER THE SKIN EVERY EVENING HUMULIN Yes [id number] ADMINISTER [facility] 70/30 U-100 8-03 70 UNITS ity of INSULIN 100 00:00: [place] unit/mL 00 SKIN EVERY Medica l (70-30) MORNING Branch suspension THEN ADMINISTER 60 UNITS UNDER THE SKIN EVERY EVENING HUMULIN Yes [id number] ADMINISTER [facility] 70/30 U-100 8-03 70 UNITS ity of INSULIN 100 00:00: [place] [place] unit/mL 00 SKIN EVERY Medica l (70-30) MORNING Branch suspension THEN ADMINISTER 60 UNITS UNDER THE SKIN EVERY EVENING HUMULIN Yes [id number] ADMINISTER [facility] 70/30 U-100 8-03 70 UNITS ity of INSULIN 100 00:00: [place] unit/mL 00 SKIN EVERY Medica l (70-30) MORNING Branch suspension THEN ADMINISTER 60 UNITS UNDER THE SKIN EVERY EVENING HUMULIN Yes [id number] ADMINISTER [facility] 70/30 U-100 06-03 70 UNITS ity of INSULIN 100 00:00: [place] [place] unit/mL 00 SKIN EVERY Medica l (70-30) MORNING Branch suspension THEN ADMINISTER 60 UNITS UNDER THE SKIN EVERY EVENING HUMULIN Yes [id number] ADMINISTER [facility] 70/30 U-100 06-03 70 UNITS ity of INSULIN 100 00:00: [place] [place] unit/mL 00 SKIN EVERY Medica l (70-30) MORNING Branch suspension THEN ADMINISTER 60 UNITS UNDER THE SKIN EVERY EVENING HUMULIN Yes [id number] ADMINISTER [facility] 70/30 U-100 06-03 70 UNITS ity of INSULIN 100 00:00: [place] [place] unit/mL 00 SKIN EVERY Medica l (70-30) MORNING Branch suspension THEN ADMINISTER 60 UNITS UNDER THE SKIN EVERY EVENING HUMULIN Yes [id number] ADMINISTER [facility] 70/30 U-100 06-03 70 UNITS ity of INSULIN 100 00:00: [place] [place] unit/mL 00 SKIN EVERY Medica l (70-30) MORNING Branch suspension THEN ADMINISTER 60 UNITS UNDER THE SKIN EVERY EVENING gabapentin Yes TAKE 1 [facility] (NEURONTIN) 06-03 TABLET BY [facility] 600 MG 00:00: MOUTH of tablet 00 THREE Medicin TIMES e DAILY gabapentin Yes TAKE 1 [facility] (NEURONTIN) 8- TABLET BY [facility] 600 MG 00:00: MOUTH of tablet 00 THREE Medicin TIMES e DAILY GABAPENTIN 0 2021- No [id number] TAKE 1 [facility] 600 mg 06-03 08-31 TABLET BY ity of tablet 00:00: 00:00 MOUTH [place] 00 :00 THREE Medical TIMES Branch DAILY HYDROCHLORO 2021-0 Yes [id number] 12.5mg TAKE 1 [facility] THIAZIDE 7-18 CAPSULE BY ity o f 12.5 mg 00:00: MOUTH [place] capsule 00 DAILY Medical Branch HYDROCHLORO 2021-0 Yes [id number] 12.5mg TAKE 1 [facility] THIAZIDE 7-18 CAPSULE BY ity o f 12.5 mg 00:00: MOUTH [place] capsule 00 DAILY Medical Branch HYDROCHLORO 2022-0 Yes [id number] 12.5mg TAKE 1 [facility] THIAZIDE 7-18 CAPSULE BY ity o f 12.5 mg 00:00: MOUTH [place] capsule 00 DAILY Medical Branch HYDROCHLORO 2022-0 Yes [id number] 12.5mg TAKE 1 [facility] THIAZIDE 7-18 CAPSULE BY ity o f 12.5 mg 00:00: MOUTH [place] capsule 00 DAILY Medical Branch HYDROCHLORO 2022-0 Yes [id number] 12.5mg TAKE 1 [facility] THIAZIDE 7-18 CAPSULE BY ity o f 12.5 mg 00:00: MOUTH [place] capsule 00 DAILY Medical Branch HYDROCHLORO 2022-0 Yes [id number] 12.5mg TAKE 1 [facility] THIAZIDE 7-18 CAPSULE BY ity o f 12.5 mg 00:00: MOUTH [place] capsule 00 DAILY Medical Branch HYDROCHLORO 2022-0 Yes [id number] 12.5mg TAKE 1 [facility] THIAZIDE 7-18 CAPSULE BY ity o f 12.5 mg 00:00: MOUTH [place] capsule 00 DAILY Medical Branch HYDROCHLORO 2022-0 Yes [id number] 12.5mg TAKE 1 [facility] THIAZIDE 7-18 CAPSULE BY ity o f 12.5 mg 00:00: MOUTH [place] capsule 00 DAILY Medical Branch HYDROCHLORO 2022-0 Yes [id number] 12.5mg TAKE 1 [facility] THIAZIDE 7-18 CAPSULE BY ity o f 12.5 mg 00:00: MOUTH [place] capsule 00 DAILY Medical Branch HYDROCHLORO 2022-0 Yes [id number] 12.5mg TAKE 1 [facility] THIAZIDE 7-18 CAPSULE BY ity o f 12.5 mg 00:00: MOUTH [place] capsule 00 DAILY Medical Branch HYDROCHLORO 2022-0 Yes [id number] 12.5mg TAKE 1 [facility] THIAZIDE 7-18 CAPSULE BY ity o f 12.5 mg 00:00: MOUTH [place] capsule 00 DAILY Medical Branch HYDROCHLORO 2022-0 Yes [id number] 12.5mg TAKE 1 [facility] THIAZIDE 7-18 CAPSULE BY ity o f 12.5 mg 00:00: MOUTH [place] capsule 00 DAILY Medical Branch HYDROCHLORO 2022-0 Yes [id number] 12.5mg TAKE 1 [facility] THIAZIDE 7-18 CAPSULE BY ity o f 12.5 mg 00:00: MOUTH [place] capsule 00 DAILY Medical Branch HYDROCHLORO 2022-0 Yes [id number] 12.5mg TAKE 1 [facility] THIAZIDE 7-18 CAPSULE BY ity o f 12.5 mg 00:00: MOUTH [place] capsule 00 DAILY Medical Branch HYDROCHLORO 2021-0 Yes [id number] 12.5mg TAKE 1 [facility] THIAZIDE 7-18 CAPSULE BY ity o f 12.5 mg 00:00: MOUTH [place] capsule 00 DAILY Medical Branch HYDROCHLORO 0 Yes [id number] 12.5mg TAKE 1 [facility] THIAZIDE 7-18 CAPSULE BY ity o f 12.5 mg 00:00: MOUTH [place] capsule 00 DAILY Medical Branch HYDROCHLORO 2021-0 Yes [id number] 12.5mg TAKE 1 [facility] THIAZIDE 7-18 CAPSULE BY ity o f 12.5 mg 00:00: MOUTH [place] capsule 00 DAILY Medical Branch HYDROCHLORO 0 Yes [id number] 12.5mg TAKE 1 [facility] THIAZIDE 7-18 CAPSULE BY ity o f 12.5 mg 00:00: MOUTH [place] capsule 00 DAILY Medical Branch HYDROCHLORO 0 Yes [id number] 12.5mg TAKE 1 [facility] THIAZIDE 7-18 CAPSULE BY ity o f 12.5 mg 00:00: MOUTH [place] capsule 00 DAILY Medical Branch HYDROCHLORO 2021-0 Yes [id number] 12.5mg TAKE 1 [facility] THIAZIDE 7-18 CAPSULE BY ity o f 12.5 mg 00:00: MOUTH [place] capsule 00 DAILY Medical Branch HYDROCHLORO 2021-0 Yes [id number] 12.5mg TAKE 1 [facility] THIAZIDE 7-18 CAPSULE BY ity o f 12.5 mg 00:00: MOUTH [place] capsule 00 DAILY Medical Branch HYDROCHLORO 2021-0 Yes [id number] 12.5mg TAKE 1 [facility] THIAZIDE 7-18 CAPSULE BY ity o f 12.5 mg 00:00: MOUTH [place] capsule 00 DAILY Medical Branch HYDROCHLORO 2021-0 Yes [id number] 12.5mg TAKE 1 [facility] THIAZIDE 7-18 CAPSULE BY ity o f 12.5 mg 00:00: MOUTH [place] capsule 00 DAILY Medical Branch HYDROCHLORO 2021-0 Yes [id number] 12.5mg TAKE 1 [facility] THIAZIDE 7-18 CAPSULE BY ity o f 12.5 mg 00:00: MOUTH [place] capsule 00 DAILY Medical Branch dicyclomine 0 Yes TAKE 1 [facility] (BENTYL) 10 7-17 CAPSULE [facility] MG capsule 00:00: MOUTH of 00 EVERY 8 Medicin HOURS e dicyclomine 2022-0 Yes TAKE 1 [facility] (BENTYL) 10 7-17 CAPSULE BY [facility] MG capsule 00:00: MOUTH of 00 EVERY 8 Medicin HOURS e dicyclomine Yes TAKE 1 [facility] (BENTYL) 10 7-17 CAPSULE BY [facility] MG capsule 00:00: MOUTH of 00 EVERY 8 Medicin HOURS e HYDROcodone 0 Yes [id number] 1{tbl} Take 1 [facility] -acetaminop 7-11 tablet by ity of hen 7.5-325 00:00: mouth [place] mg per 00 every 6 Medical tablet (six) Branch hours as needed for Pain. Indication s: chronic pain HYDROcodone Yes [id number] 1{tbl} Take 1 [facility] -acetaminop 7-11 tablet by ity of hen 7.5-325 00:00: mouth [place] mg per 00 every 6 Medical tablet (six) Branch hours as needed for Pain. Indication s: chronic pain HYDROcodone 0 Yes [id number] 1{tbl} Take 1 [facility] -acetaminop 7-11 tablet by ity of hen 7.5-325 00:00: mouth [place] mg per 00 every 6 Medical tablet (six) Branch hours as needed for Pain. Indication s: chronic pain HYDROcodone 0 Yes [id number] 1{tbl} Take 1 [facility] -acetaminop 7-11 tablet by ity of hen 7.5-325 00:00: mouth [place] mg per 00 every 6 Medical tablet (six) Branch hours as needed for Pain. Indication s: chronic pain HYDROcodone 2021-0 Yes [id number] 1{tbl} Take 1 [facility] -acetaminop 7-11 tablet by ity of hen 7.5-325 00:00: mouth [place] mg per 00 every 6 Medical tablet (six) Branch hours as needed for Pain. Indication s: chronic pain colchicine 2021-0 Yes .6mg Take 0.6 [place] [facility] 0.6 MG 7-11 mg by [facility] tablet 00:00: mouth of 00 daily. Medicin e colchicine Yes .6mg Take 0.6 [place] [facility] 0.6 MG 7-11 mg by [facility] tablet 00:00: mouth of 00 daily. Medicin e HYDROcodone 2021- No [id number] 1{tbl} Take 1 [facility] n[facility] -acetaminop 7-11 0808 tablet by it y of hen 7.5-325 00:00: 00:00 [place] mg per 00 :00 every 6 Medical tablet (six) Branch hours as needed for Pain. Indication s: chronic pain ondansetron Yes DISSOLVE 1 [facility] (ZOFRAN-ODT 7-06 TABLET ON Col [facility]ge ) 4 mg 00:00: THE TONGUE of disintegrat 00 EVERY 12 Medi patsy ing tablet HOURS e NEEDED pantoprazol Yes 40mg Take 40 mg [facility] 7-06 by mouth [facility] (PROTONIX) 00:00: daily. of 40 MG 00 Medicin tablet e ondansetron Yes DISSOLVE 1 [facility] (ZOFRAN-ODT 7-06 TABLET ON [facility] ) 4 mg 00:00: THE TONGUE of disintegrat 00 EVERY 12 Medi patsy ing tablet HOURS e NEEDED pantoprazol Yes 40mg Take 40 mg [facility] 7-06 by mouth [facility] (PROTONIX) 00:00: daily. of 40 MG 00 Medicin tablet e ondansetron Yes DISSOLVE 1 [facility] (ZOFRAN-ODT 7-06 TABLET ON [facility] ) 4 mg 00:00: THE TONGUE of disintegrat 00 EVERY 12 Medi patsy ing tablet HOURS e NEEDED ofloxacin Yes [facility] (OCUFLOX) 6-22 College 0.3 % 00:00: of Solution 00 Medicin e ofloxacin Yes [facility] (OCUFLOX) 6-22 [place] 0.3 % 00:00: of Solution 00 Medicin e zolpidem Yes TAKE 1 [facility] (AMBIEN) 10 6-20 TABLET BY Col [facility]ge MG tablet 00:00: MOUTH AT of 00 BEDTIME Medicin NEEDED FOR e INSOMNIA zolpidem Yes TAKE 1 [facility] (AMBIEN) 10 6-20 TABLET BY [facility] MG tablet 00:00: MOUTH AT of 00 BEDTIME Medicin NEEDED FOR e INSOMNIA zolpidem Yes TAKE 1 [facility] (AMBIEN) 10 6-20 TABLET BY Col [facility]ge MG tablet 00:00: MOUTH AT of 00 BEDTIME Medicin NEEDED FOR e INSOMNIA HYDROcodone 2022-0 Yes [id number] 1{tbl} Take 1 [facility] ally -acetaminop 6-13 tablet by ity of hen 7.5-325 00:00: mouth [place] mg per 00 every 6 Medical tablet (six) Branch hours as needed for Pain. Indication s: chronic pain HYDROcodone 2021-0 2022- No [id number] 1{tbl} Take 1 [facility] nivers -acetaminop 6-13 07-11 tablet by it y of hen 7.5-325 00:00: 00:00 [place] mg per 00 :00 every 6 Medical tablet (six) Branch hours as needed for Pain. Indication s: chronic pain metoprolol 2022-0 Yes 100mg Take 1 [facility] ers tartrate 6-09 tablet by ity of 100 mg 00:00: mouth 2 [place] tablet 00 (two) Medical times Branch daily. metoprolol 2022-0 Yes 100mg Take 1 [facility] ers tartrate 6-09 tablet by ity of 100 mg 00:00: mouth 2 [place] tablet 00 (two) Medical times Branch daily. metoprolol 2022-0 Yes 100mg Take 1 [facility] ers tartrate 6-09 tablet by ity of 100 mg 00:00: mouth 2 [place] tablet 00 (two) Medical times Branch daily. metoprolol 2022-0 Yes 100mg Take 1 [facility] ers tartrate 6-09 tablet by ity of 100 mg 00:00: mouth 2 [place] tablet 00 (two) Medical times Branch daily. metoprolol 2022-0 Yes 100mg Take 1 [facility] ers tartrate 6-09 tablet by ity of 100 mg 00:00: mouth 2 [place] tablet 00 (two) Medical times Branch daily. metoprolol 2022-0 Yes 100mg Take 1 [facility] ers tartrate 6-09 tablet by ity of 100 mg 00:00: mouth 2 [place] tablet 00 (two) Medical times Branch daily. metoprolol 2022-0 Yes 100mg Take 1 [facility] ers tartrate 6-09 tablet by ity of 100 mg 00:00: mouth 2 [place] tablet 00 (two) Medical times Branch daily. metoprolol 2022-0 2022- No 100mg Take 1 [facility] vers tartrate 6-09 08-22 tablet by ity o f 100 mg 00:00: 00:00 mouth 2 [place] tablet 00 :00 (two) Medical times Branch daily. GABAPENTIN 2022-0 Yes [id number] TAKE 1 [facility] 600 mg 5-31 TABLET BY ity of tablet 00:00: MOUTH [place] 00 THREE Medical TIMES Branch DAILY GABAPENTIN 2022-0 Yes [id number] TAKE 1 [facility] 600 mg 5-31 TABLET BY ity of tablet 00:00: MOUTH [place] 00 THREE Medical TIMES Branch DAILY GABAPENTIN 2022-0 Yes [id number] TAKE 1 [facility] 600 mg 5-31 TABLET BY ity of tablet 00:00: MOUTH [place] 00 THREE Medical TIMES Branch DAILY GABAPENTIN 2022-0 Yes [id number] TAKE 1 [facility] 600 mg 5-31 TABLET BY ity of tablet 00:00: MOUTH [place] 00 THREE Medical TIMES Branch DAILY GABAPENTIN 2022-0 Yes [id number] TAKE 1 [facility] 600 mg 5-31 TABLET BY ity of tablet 00:00: MOUTH [place] 00 THREE Medical TIMES Branch DAILY GABAPENTIN 2022-0 2022- No [id number] TAKE 1 [facility] 600 mg 5-31 08-03 TABLET BY ity of tablet 00:00: 00:00 MOUTH [place] 00 :00 THREE Medical TIMES Branch DAILY Insulin 2022-0 Yes [id number] Use as [facility] vers Syringe-Nee 5-18 directed ity of dle U-100 1 00:00: [place] mL 31 x 00 Medical 3/8" Syrg Branch Insulin 2022-0 Yes [id number] Use as [facility] vers Syringe-Nee 5-18 directed ity of dle U-100 1 00:00: [place] mL 31 x 00 Medical 3/8" Syrg Branch Insulin 2022-0 Yes [id number] Use as [facility] vers Syringe-Nee 5-18 directed ity of dle U-100 1 00:00: [place] mL 31 x 00 Medical 3/8" Syrg Branch Insulin 2022-0 Yes [id number] Use as [facility] vers Syringe-Nee 5-18 directed ity of dle U-100 1 00:00: [place] mL 31 x 00 Medical 3/8" Syrg Branch Insulin 2022-0 Yes [id number] Use as [facility] vers Syringe-Nee 5-18 directed ity of dle U-100 1 00:00: [place] mL 31 x 00 Medical 3/8" Syrg Branch Insulin 2022-0 Yes [id number] Use as [facility] vers Syringe-Nee 5-18 directed ity of dle U-100 1 00:00: [place] mL 31 x 00 Medical 3/8" Syrg Branch Insulin 2022-0 Yes [id number] Use as [facility] vers Syringe-Nee 5-18 directed ity of dle U-100 1 00:00: [place] mL 31 x 00 Medical 3/8" Syrg Branch Insulin 2022-0 Yes [id number] Use as [facility] vers Syringe-Nee 5-18 directed ity of dle U-100 1 00:00: [place] mL 31 x 00 Medical 3/8" Syrg Branch Insulin 2022-0 Yes [id number] Use as [facility] vers Syringe-Nee 5-18 directed ity of dle U-100 1 00:00: [place] mL 31 x 00 Medical 3/8" Syrg Branch Insulin 2022-0 Yes [id number] Use as [facility] vers Syringe-Nee 5-18 directed ity of dle U-100 1 00:00: [place] mL 31 x 00 Medical 3/8" Syrg Branch Insulin 2022-0 Yes [id number] Use as [facility] vers Syringe-Nee 5-18 directed ity of dle U-100 1 00:00: [place] mL 31 x 00 Medical 3/8" Syrg Branch Insulin 2022-0 Yes [id number] Use as [facility] vers Syringe-Nee 5-18 directed ity of dle U-100 1 00:00: [place] mL 31 x 00 Medical 3/8" Syrg Branch Insulin 2022-0 Yes [id number] Use as [facility] vers Syringe-Nee 5-18 directed ity of dle U-100 1 00:00: [place] mL 31 x 00 Medical 3/8" Syrg Branch Insulin 2022-0 Yes [id number] Use as [facility] vers Syringe-Nee 5-18 directed ity of dle U-100 1 00:00: [place] mL 31 x 00 Medical 3/8" Syrg Branch Insulin 2022-0 Yes [id number] Use as [facility] vers Syringe-Nee 5-18 directed ity of dle U-100 1 00:00: [place] mL 31 x 00 Medical 3/8" Syrg Branch Insulin 2022-0 Yes [id number] Use as [facility] vers Syringe-Nee 5-18 directed ity of dle U-100 1 00:00: [place] mL 31 x 00 Medical 3/8" Syrg Branch Insulin 2022-0 Yes [id number] Use as [facility] vers Syringe-Nee 5-18 directed ity of dle U-100 1 00:00: [place] mL 31 x 00 Medical 3/8" Syrg Branch Insulin 2022-0 Yes [id number] Use as [facility] vers Syringe-Nee 5-18 directed ity of dle U-100 1 00:00: [place] mL 31 x 00 Medical 3/8" Syrg Branch Insulin 2022-0 Yes [id number] Use as [facility] vers Syringe-Nee 5-18 directed ity of dle U-100 1 00:00: [place] mL 31 x 00 Medical 3/8" Syrg Branch Insulin 2022-0 Yes [id number] Use as [facility] vers Syringe-Nee 5-18 directed ity of dle U-100 1 00:00: [place] mL 31 x 00 Medical 3/8" Syrg Branch Insulin 2022-0 Yes [id number] Use as [facility] vers Syringe-Nee 5-18 directed ity of dle U-100 1 00:00: [place] mL 31 x 00 Medical 3/8" Syrg Branch Insulin 2022-0 Yes [id number] Use as [facility] vers Syringe-Nee 5-18 directed ity of dle U-100 1 00:00: [place] mL 31 x 00 Medical 3/8" Syrg Branch Insulin 2022-0 Yes [id number] Use as [facility] vers Syringe-Nee 5-18 directed ity of dle U-100 1 00:00: [place] mL 31 x 00 Medical 3/8" Syrg Branch Insulin 2022-0 Yes [id number] Use as [facility] vers Syringe-Nee 5-18 directed ity of dle U-100 1 00:00: [place] mL 31 x 00 Medical 3/8" Syrg Branch Insulin 2022-0 Yes [id number] Use as [facility] vers Syringe-Nee 5-18 directed ity of dle U-100 1 00:00: [place] mL 31 x 00 Medical 3/8" Syrg Branch Insulin 2022-0 Yes [id number] Use as [facility] vers Syringe-Nee 5-18 directed ity of dle U-100 1 00:00: [place] mL 31 x 00 Medical 3/8" Syrg Branch Insulin 2022-0 Yes [id number] Use as [facility] vers Syringe-Nee 5-18 directed ity of dle U-100 1 00:00: [place] mL 31 x 00 Medical 3/8" Syrg Branch Insulin 2-0 Yes [id number] Use as [facility] vers Syringe-Nee 5-18 directed ity of dle U-100 1 00:00: [place] mL 31 x 00 Medical 3/8" Syrg Branch METFORMIN 2-0 Yes [id number] TAKE 1 [facility] 1,000 mg 5-16 TABLET BY ity of tablet 00:00: MOUTH 00 TWICE Medical DAILY WITH Branch MEALS HYDRALAZINE 2021-0 Yes [id number] TAKE 1 [facility] 100 mg 5-16 TABLET BY ity of tablet 00:00: MOUTH 00 THREE Medical TIMES Branch DAILY METFORMIN 2021-0 Yes [id number] TAKE 1 [facility] 1,000 mg 5-16 TABLET BY ity of tablet 00:00: MOUTH TWICE Medical DAILY WITH Branch MEALS HYDRALAZINE 2021-0 Yes [id number] TAKE 1 [facility] 100 mg 5-16 TABLET BY ity of tablet 00:00: MOUTH THREE Medical TIMES Branch DAILY METFORMIN 2-0 Yes [id number] TAKE 1 [facility] 1,000 mg 5-16 TABLET BY ity of tablet 00:00: MOUTH TWICE Medical DAILY WITH Branch MEALS HYDRALAZINE 2021-0 Yes [id number] TAKE 1 [facility] 100 mg 5-16 TABLET BY ity of tablet 00:00: MOUTH THREE Medical TIMES Branch DAILY METFORMIN 2-0 Yes [id number] TAKE 1 [facility] 1,000 mg 5-16 TABLET BY ity of tablet 00:00: MOUTH TWICE Medical DAILY WITH Branch MEALS HYDRALAZINE 2021-0 Yes [id number] TAKE 1 [facility] 100 mg 5-16 TABLET BY ity of tablet 00:00: MOUTH THREE Medical TIMES Branch DAILY METFORMIN 2-0 Yes [id number] TAKE 1 [facility] 1,000 mg 5-16 TABLET BY ity of tablet 00:00: MOUTH TWICE Medical DAILY WITH Branch MEALS HYDRALAZINE 2021-0 Yes [id number] TAKE 1 [facility] 100 mg 5-16 TABLET BY ity of tablet 00:00: MOUTH THREE Medical TIMES Branch DAILY METFORMIN 2-0 Yes [id number] TAKE 1 [facility] 1,000 mg 5-16 TABLET BY ity of tablet 00:00: MOUTH TWICE Medical DAILY WITH Branch MEALS HYDRALAZINE 2022-0 Yes [id number] TAKE 1 [facility] 100 mg 5-16 TABLET BY ity of tablet 00:00: MOUTH THREE Medical TIMES Branch DAILY METFORMIN 2-0 Yes [id number] TAKE 1 [facility] 1,000 mg 5-16 TABLET BY ity of tablet 00:00: MOUTH TWICE Medical DAILY WITH Branch MEALS HYDRALAZINE 2-0 Yes [id number] TAKE 1 [facility] 100 mg 5-16 TABLET BY ity of tablet 00:00: MOUTH THREE Medical TIMES Branch DAILY METFORMIN 2-0 Yes [id number] TAKE 1 [facility] 1,000 mg 5-16 TABLET BY ity of tablet 00:00: MOUTH TWICE Medical DAILY WITH Branch MEALS HYDRALAZINE 2021-0 Yes [id number] TAKE 1 [facility] 100 mg 5-16 TABLET BY ity of tablet 00:00: THREE Medical TIMES Branch DAILY METFORMIN 2-0 Yes [id number] TAKE 1 [facility] 1,000 mg 5-16 TABLET BY ity of tablet 00:00: TWICE Medical DAILY WITH Branch MEALS HYDRALAZINE 2021-0 Yes [id number] TAKE 1 [facility] 100 mg 5-16 TABLET BY ity of tablet 00:00: THREE Medical TIMES Branch DAILY METFORMIN 2-0 Yes [id number] TAKE 1 [facility] 1,000 mg 5-16 TABLET BY ity of tablet 00:00: TWICE Medical DAILY WITH Branch MEALS HYDRALAZINE 2-0 Yes [id number] TAKE 1 [facility] 100 mg 5-16 TABLET BY ity of tablet 00:00: THREE Medical TIMES Branch DAILY METFORMIN 2-0 Yes [id number] TAKE 1 [facility] 1,000 mg 5-16 TABLET BY ity of tablet 00:00: TWICE Medical DAILY WITH Branch MEALS HYDRALAZINE 2-0 Yes [id number] TAKE 1 [facility] 100 mg 5-16 TABLET BY ity of tablet 00:00: THREE Medical TIMES Branch DAILY METFORMIN 2-0 Yes [id number] TAKE 1 [facility] 1,000 mg 5-16 TABLET BY ity of tablet 00:00: MOUTH TWICE Medical DAILY WITH Branch MEALS METFORMIN 2022-0 Yes [id number] TAKE 1 [facility] 1,000 mg 5-16 TABLET BY ity of tablet 00:00: MOUTH 00 TWICE Medical DAILY WITH Branch MEALS METFORMIN 2022-0 Yes [id number] TAKE 1 [facility] 1,000 mg 5-16 TABLET BY ity of tablet 00:00: MOUTH 00 TWICE Medical DAILY WITH Branch MEALS METFORMIN 2022-0 Yes [id number] TAKE 1 [facility] 1,000 mg 5-16 TABLET BY ity of tablet 00:00: MOUTH 00 TWICE Medical DAILY WITH Branch MEALS METFORMIN 2022-0 Yes [id number] TAKE 1 [facility] 1,000 mg 5-16 TABLET BY ity of tablet 00:00: MOUTH 00 TWICE Medical DAILY WITH Branch MEALS METFORMIN 2022-0 Yes [id number] TAKE 1 [facility] 1,000 mg 5-16 TABLET BY ity of tablet 00:00: MOUTH 00 TWICE Medical DAILY WITH Branch MEALS METFORMIN 2022-0 Yes [id number] TAKE 1 [facility] 1,000 mg 5-16 TABLET BY ity of tablet 00:00: MOUTH 00 TWICE Medical DAILY WITH Branch MEALS METFORMIN 2022-0 Yes [id number] TAKE 1 [facility] 1,000 mg 5-16 TABLET BY ity of tablet 00:00: MOUTH TWICE Medical DAILY WITH Branch MEALS METFORMIN 2022-0 Yes [id number] TAKE 1 [facility] 1,000 mg 5-16 TABLET BY ity of tablet 00:00: MOUTH TWICE Medical DAILY WITH Branch MEALS METFORMIN 2022-0 Yes [id number] TAKE 1 [facility] 1,000 mg 5-16 TABLET BY ity of tablet 00:00: MOUTH TWICE Medical DAILY WITH Branch MEALS METFORMIN 2022-0 Yes [id number] TAKE 1 [facility] 1,000 mg 5-16 TABLET BY ity of tablet 00:00: MOUTH 00 TWICE Medical DAILY WITH Branch MEALS METFORMIN 2022-0 Yes [id number] TAKE 1 [facility] 1,000 mg 5-16 TABLET BY ity of tablet 00:00: MOUTH 00 TWICE Medical DAILY WITH Branch MEALS METFORMIN 2022-0 Yes [id number] TAKE 1 [facility] 1,000 mg 5-16 TABLET BY ity of tablet 00:00: MOUTH 00 TWICE Medical DAILY WITH Branch MEALS METFORMIN 2022-0 Yes [id number] TAKE 1 [facility] 1,000 mg 5-16 TABLET BY ity of tablet 00:00: MOUTH 00 TWICE Medical DAILY WITH Branch MEALS METFORMIN 2021-0 Yes [id number] TAKE 1 [facility] 1,000 mg 5-16 TABLET BY ity of tablet 00:00: MOUTH [place] 00 TWICE Medical DAILY WITH Branch MEALS METFORMIN 2021-0 Yes [id number] TAKE 1 [facility] 1,000 mg 5-16 TABLET BY ity of tablet 00:00: MOUTH [place] 00 TWICE Medical DAILY WITH Branch MEALS METFORMIN 2021-0 Yes [id number] TAKE 1 [facility] 1,000 mg 5-16 TABLET BY ity of tablet 00:00: MOUTH [place] 00 TWICE Medical DAILY WITH Branch MEALS metformin 2021-0 Yes TAKE 1 [facility] (GLUCOPHAGE 5-16 TABLET BY [facility] ) 1000 MG 00:00: MOUTH of tablet 00 TWICE Medicin DAILY WITH e MEALS metformin 2021-0 Yes TAKE 1 [facility] (GLUCOPHAGE 5-16 TABLET BY Col [facility]ge ) 1000 MG 00:00: MOUTH of tablet 00 TWICE Medicin DAILY WITH e MEALS metformin 2021-0 Yes TAKE 1 [facility] (GLUCOPHAGE 5-16 TABLET BY [facility] ) 1000 MG 00:00: MOUTH of tablet 00 TWICE Medicin DAILY WITH e MEALS HYDRALAZINE 2021-0 2021- No [id number] TAKE 1 [facility] 100 mg 5-16 -06 TABLET BY ity of tablet 00:00: 00:00 MOUTH [place] 00 :00 THREE Medical TIMES Branch DAILY LISINOPRIL 2021-0 Yes [id number] TAKE 1/2 [facility] 40 mg 5-13 TABLET BY ity of tablet 00:00: MOUTH [place] 00 TWICE Medical DAILY Branch LISINOPRIL 2021-0 Yes [id number] TAKE 1/2 [facility] 40 mg 5-13 TABLET BY ity of tablet 00:00: MOUTH [place] 00 TWICE Medical DAILY Branch LISINOPRIL 2021-0 Yes [id number] TAKE 1/2 [facility] 40 mg 5-13 TABLET BY ity of tablet 00:00: MOUTH [place] 00 TWICE Medical DAILY Branch LISINOPRIL 2021-0 Yes [id number] TAKE 1/2 [facility] 40 mg 5-13 TABLET BY ity of tablet 00:00: MOUTH [place] 00 TWICE Medical DAILY Branch LISINOPRIL 2021-0 Yes [id number] TAKE 1/2 [facility] 40 mg 5-13 TABLET BY ity of tablet 00:00: MOUTH [place] 00 TWICE Medical DAILY Branch LISINOPRIL 2021-0 Yes [id number] TAKE 1/2 [facility] 40 mg 5-13 TABLET BY ity of tablet 00:00: MOUTH 00 TWICE Medical DAILY Branch LISINOPRIL Yes [id number] TAKE 1/2 [facility] 40 mg 5-13 TABLET BY ity of tablet 00:00: MOUTH 00 TWICE Medical DAILY Branch LISINOPRIL 2021- No [id number] TAKE 1/2 [facility] 40 mg 5-13 08-08 TABLET BY ity of tablet 00:00: 00:00 MOUTH [place] 00 :00 TWICE Medical DAILY Branch LISINOPRIL 2021- No [id number] TAKE 1/2 [facility] 40 mg 5-13 08-08 TABLET BY ity of tablet 00:00: 00:00 MOUTH [place] 00 :00 TWICE Medical DAILY Branch HUMULIN Yes [id number] ADMINISTER [facility] 70/30 U-100 5-11 70 UNITS ity of INSULIN 100 00:00: UNDER THE [place] unit/mL 00 SKIN EVERY Medica l (70-30) MORNING Branch suspension THEN ADMINISTER 60 UNITS UNDER THE SKIN EVERY EVENING HUMULIN Yes [id number] ADMINISTER [facility] 70/30 U-100 5-11 70 UNITS ity of INSULIN 100 00:00: UNDER THE [place] unit/mL 00 SKIN EVERY Medica l (70-30) MORNING Branch suspension THEN ADMINISTER 60 UNITS UNDER THE SKIN EVERY EVENING HUMULIN Yes [id number] ADMINISTER [facility] 70/30 U-100 5-11 70 UNITS ity of INSULIN 100 00:00: UNDER THE [place] unit/mL 00 SKIN EVERY Medica l (70-30) MORNING Branch suspension THEN ADMINISTER 60 UNITS UNDER THE SKIN EVERY EVENING HUMULIN Yes [id number] ADMINISTER [facility] 70/30 U-100 5-11 70 UNITS ity of INSULIN 100 00:00: UNDER THE [place] unit/mL 00 SKIN EVERY Medica l (70-30) MORNING Branch suspension THEN ADMINISTER 60 UNITS UNDER THE SKIN EVERY EVENING HUMULIN Yes [id number] ADMINISTER [facility] 70/30 U-100 5-11 70 UNITS ity of INSULIN 100 00:00: UNDER THE [place] unit/mL 00 SKIN EVERY Medica l (70-30) MORNING Branch suspension THEN ADMINISTER 60 UNITS UNDER THE SKIN EVERY EVENING HUMULIN 2021- No [id number] ADMINISTER [facility] 70/30 U-100 5-11 08-03 70 UNITS ity of INSULIN 100 00:00: 00:00 UNDER THE [place] unit/mL 00 :00 SKIN EVERY Medica l (70-30) MORNING Branch suspension THEN ADMINISTER 60 UNITS UNDER THE SKIN EVERY EVENING HYDROcodone 0 Yes [id number] 1{tbl} Take 1 [...] for Pain. Indication s: chronic pain HYDROcodone 2021- No 2745 1{tbl} Take 1 U nivers -acetaminop 5-09 06-13 tablet by it y of hen 7.5-325 00:00[place] per 00 :00 every 6 Medical tablet (six) Branch hours as needed for Pain. Indication s: chronic pain GABAPENTIN 0 Yes [id number] TAKE 1 [facility] 600 mg 5-02 TABLET BY ity of tablet 00:00: MOUTH [place] 00 THREE Medical TIMES Branch DAILY BD INSULIN 2021-0 Yes [id number] USE 1 U nivers SYRINGE 5-02 SYRINGE ity of U-500 2 00:00: TWICE [place] mL 31 gauge 00 DAILY WITH Me dical x 15/64" MEALS. Branch Syrg BD INSULIN 2021-0 Yes [id number] USE 1 U nivers SYRINGE 5-02 SYRINGE ity of U-500 2 00:00: TWICE [place] mL 31 gauge 00 DAILY WITH Me dical x 15/64" MEALS. Branch Syrg BD INSULIN 2021-0 Yes [id number] USE 1 U nivers SYRINGE 5-02 SYRINGE ity of U-500 2 00:00: TWICE [place] mL 31 gauge 00 DAILY WITH Me dical x 15/64" MEALS. Branch Syrg BD INSULIN 2021-0 Yes [id number] USE 1 U nivers SYRINGE 5-02 SYRINGE ity of U-500 2 00:00: TWICE [place] mL 31 gauge 00 DAILY WITH Me dical x 15/64" MEALS. Branch Syrg BD INSULIN 2021-0 Yes [id number] USE 1 U nivers SYRINGE 5-02 SYRINGE ity of U-500 2 00:00: TWICE [place] mL 31 gauge 00 DAILY WITH Me dical x 15/64" MEALS. Branch Syrg BD INSULIN 2021-0 Yes [id number] USE 1 U nivers SYRINGE 5-02 SYRINGE ity of U-500 2 00:00: TWICE [place] mL 31 gauge 00 DAILY WITH Me dical x 15/64" MEALS. Branch Syrg BD INSULIN 2021-0 Yes [id number] USE 1 U nivers SYRINGE 5-02 SYRINGE ity of U-500 2 00:00: TWICE [place] mL 31 gauge 00 DAILY WITH Me dical x 15/64" MEALS. Branch Syrg BD INSULIN 2021-0 Yes [id number] USE 1 U nivers SYRINGE 5-02 SYRINGE ity of U-500 2 00:00: TWICE [place] mL 31 gauge 00 DAILY WITH Me dical x 15/64" MEALS. Branch Syrg BD INSULIN 2021-0 Yes [id number] USE 1 U nivers SYRINGE 5-02 SYRINGE ity of U-500 2 00:00: TWICE [place] mL 31 gauge 00 DAILY WITH Me dical x 15/64" MEALS. Branch Syrg BD INSULIN 2021-0 Yes [id number] USE 1 U nivers SYRINGE 5-02 SYRINGE ity of U-500 2 00:00: TWICE [place] mL 31 gauge 00 DAILY WITH Me dical x 15/64" MEALS. Branch Syrg BD INSULIN 2021-0 Yes [id number] USE 1 U nivers SYRINGE 5-02 SYRINGE ity of U-500 2 00:00: TWICE [place] mL 31 gauge 00 DAILY WITH Me dical x 15/64" MEALS. Branch Syrg BD INSULIN 2021-0 Yes [id number] USE 1 U nivers SYRINGE 5-02 SYRINGE ity of U-500 2 00:00: TWICE [place] mL 31 gauge 00 DAILY WITH Me dical x 15/64" MEALS. Branch Syrg BD INSULIN 2021-0 Yes [id number] USE 1 U nivers SYRINGE 5-02 SYRINGE ity of U-500 2 00:00: TWICE [place] mL 31 gauge 00 DAILY WITH Me dical x 15/64" MEALS. Branch Syrg BD INSULIN 2021-0 Yes [id number] USE 1 U nivers SYRINGE 5-02 SYRINGE ity of U-500 2 00:00: TWICE [place] mL 31 gauge 00 DAILY WITH Me dical x 15/64" MEALS. Branch Syrg BD INSULIN 0 Yes [id number] USE 1 U nivers SYRINGE 5-02 SYRINGE ity of U-500 2 00:00: TWICE [place] mL 31 gauge 00 DAILY WITH Me dical x 15/64" MEALS. Branch Syrg BD INSULIN 0 Yes [id number] USE 1 U nivers SYRINGE 5-02 SYRINGE ity of U-500 2 00:00: TWICE [place] mL 31 gauge 00 DAILY WITH Me dical x 15/64" MEALS. Branch Syrg BD INSULIN 0 Yes [id number] USE 1 U nivers SYRINGE 5-02 SYRINGE ity of U-500 2 00:00: TWICE [place] mL 31 gauge 00 DAILY WITH Me dical x 15/64" MEALS. Branch Syrg BD INSULIN 2021-0 Yes [id number] USE 1 U nivers SYRINGE 5-02 SYRINGE ity of U-500 2 00:00: TWICE [place] mL 31 gauge 00 DAILY WITH Me dical x 15/64" MEALS. Branch Syrg BD INSULIN 0 Yes [id number] USE 1 U nivers SYRINGE 5-02 SYRINGE ity of U-500 2 00:00: TWICE [place] mL 31 gauge 00 DAILY WITH Me dical x 15/64" MEALS. Branch Syrg BD INSULIN 2021-0 Yes [id number] USE 1 U nivers SYRINGE 5-02 SYRINGE ity of U-500 2 00:00: TWICE [place] mL 31 gauge 00 DAILY WITH Me dical x 15/64" MEALS. Branch Syrg BD INSULIN 2021-0 Yes [id number] USE 1 U nivers SYRINGE 5-02 SYRINGE ity of U-500 2 00:00: TWICE [place] mL 31 gauge 00 DAILY WITH Me dical x 15/64" MEALS. Branch Syrg BD INSULIN 2021-0 Yes [id number] USE 1 U nivers SYRINGE 5-02 SYRINGE ity of U-500 2 00:00: TWICE [place] mL 31 gauge 00 DAILY WITH Me dical x 15/64" MEALS. Branch Syrg BD INSULIN Yes [id number] USE 1 U nivers SYRINGE 5-02 SYRINGE ity of U-500 11/02 00:00: TWICE [place] mL 31 gauge 00 DAILY WITH Me dical x 15/64" MEALS. Branch Syrg BD INSULIN Yes [id number] USE 1 U nivers SYRINGE 5-02 SYRINGE ity of U-500 11/02 00:00: TWICE [place] mL 31 gauge 00 DAILY WITH Me dical x 15/64" MEALS. Branch Syrg BD INSULIN Yes [id number] USE 1 U nivers SYRINGE 5-02 SYRINGE ity of U-500 11/02 00:00: TWICE [place] mL 31 gauge 00 DAILY WITH Me dical x 15/64" MEALS. Branch Syrg BD INSULIN Yes [id number] USE 1 U nivers SYRINGE 5-02 SYRINGE ity of U-500 11/02 00:00: TWICE [place] mL 31 gauge 00 DAILY WITH Me dical x 15/64" MEALS. Branch Syrg BD INSULIN Yes [id number] USE 1 U nivers SYRINGE 5-02 SYRINGE ity of U-500 11/02 00:00: TWICE [place] mL 31 gauge 00 DAILY WITH Me dical x 15/64" MEALS. Branch Syrg BD INSULIN Yes [id number] USE 1 U nivers SYRINGE 5-02 SYRINGE ity of U-500 11/02 00:00: TWICE [place] mL 31 gauge 00 DAILY WITH Me dical x 15/64" MEALS. Branch Syrg Insulin Yes USE 1 [facility] Syringe/Nee 5-02 SYRINGE [facility] [place] [facility] U-500 00:00: TWICE of (BD INSULIN 00 DAILY WITH Me dicin SYRINGE MEALS. e U-500) 31G X 6MM 0.5 ML MISC Insulin Yes USE 1 [facility] Syringe/Nee 5-02 SYRINGE [facility]le [facility]le U-500 00:00: TWICE of (BD INSULIN 00 DAILY WITH Me dicin SYRINGE MEALS. e U-500) 31G X 6MM 0.5 ML MISC GABAPENTIN 2021-0 202- No [id number] TAKE 1 [facility] 600 mg 5- 05-31 TABLET BY ity of tablet 00:00: 00:00 MOUTH [place] 00 :00 THREE Medical TIMES Branch DAILY sucralfate 2022-0 Yes [id number] 1g Take 1 [facility] 1 gram 3-27 tablet by ity of tablet 00:00: mouth [place] 00 before Medical meals and Branch at bedtime. sucralfate 2021-0 Yes [id number] 1g Take 1 [facility] 1 gram 3-27 tablet by ity of tablet 00:00: mouth [place] 00 before Medical meals and Branch at bedtime. sucralfate 2022-0 Yes [id number] 1g Take 1 [facility] 1 gram 3-27 tablet by ity of tablet 00:00: mouth [place] 00 before Medical meals and Branch at bedtime. sucralfate 2021-0 Yes [id number] 1g Take 1 [facility] 1 gram 3-27 tablet by ity of tablet 00:00: mouth [place] 00 before Medical meals and Branch at bedtime. sucralfate 2021-0 Yes [id number] 1g Take 1 [facility] 1 gram 3-27 tablet by ity of tablet 00:00: mouth [place] 00 before Medical meals and Branch at bedtime. sucralfate 2021-0 Yes [id number] 1g Take 1 [facility] 1 gram 3-27 tablet by ity of tablet 00:00: mouth [place] 00 before Medical meals and Branch at bedtime. sucralfate 2021-0 Yes [id number] 1g Take 1 [facility] 1 gram 3-27 tablet by ity of tablet 00:00: mouth [place] 00 before Medical meals and Branch at bedtime. sucralfate 2021-0 Yes [id number] 1g Take 1 [facility] 1 gram 3-27 tablet by ity of tablet 00:00: mouth [place] 00 before Medical meals and Branch at bedtime. sucralfate 2021-0 Yes [id number] 1g Take 1 [facility] 1 gram 3-27 tablet by ity of tablet 00:00: mouth [place] 00 before Medical meals and Branch at bedtime. sucralfate 2-0 Yes [id number] 1g Take 1 [facility] 1 gram 3-27 tablet by ity of tablet 00:00: mouth [place] 00 before Medical meals and Branch at bedtime. sucralfate 2-0 Yes [id number] 1g Take 1 [facility] 1 gram 3-27 tablet by ity of tablet 00:00: mouth [place] 00 before Medical meals and Branch at bedtime. sucralfate 2-0 Yes [id number] 1g Take 1 [facility] 1 gram 3-27 tablet by ity of tablet 00:00: mouth [place] 00 before Medical meals and Branch at bedtime. sucralfate 2022-0 Yes [id number] 1g Take 1 [facility] 1 gram 3-27 tablet by ity of tablet 00:00: mouth [place] 00 before Medical meals and Branch at bedtime. sucralfate 2022-0 Yes [id number] 1g Take 1 [facility] 1 gram 3-27 tablet by ity of tablet 00:00: mouth [place] 00 before Medical meals and Branch at bedtime. sucralfate 2022-0 Yes [id number] 1g Take 1 [facility] 1 gram 3-27 tablet by ity of tablet 00:00: mouth [place] 00 before Medical meals and Branch at bedtime. sucralfate 2022-0 Yes [id number] 1g Take 1 [facility] 1 gram 3-27 tablet by ity of tablet 00:00: mouth [place] 00 before Medical meals and Branch at bedtime. sucralfate 2022-0 Yes [id number] 1g Take 1 [facility] 1 gram 3-27 tablet by ity of tablet 00:00: mouth [place] 00 before Medical meals and Branch at bedtime. sucralfate 2-0 Yes [id number] 1g Take 1 [facility] 1 gram 3-27 tablet by ity of tablet 00:00: mouth [place] 00 before Medical meals and Branch at bedtime. sucralfate 2-0 Yes [id number] 1g Take 1 [facility] 1 gram 3-27 tablet by ity of tablet 00:00: mouth [place] 00 before Medical meals and Branch at bedtime. sucralfate 2022-0 Yes [id number] 1g Take 1 [facility] 1 gram 3-27 tablet by ity of tablet 00:00: mouth [place] 00 before Medical meals and Branch at bedtime. sucralfate 2022-0 Yes [id number] 1g Take 1 [facility] 1 gram 3-27 tablet by ity of tablet 00:00: mouth [place] 00 before Medical meals and Branch at bedtime. sucralfate 2022-0 Yes [id number] 1g Take 1 [facility] 1 gram 3-27 tablet by ity of tablet 00:00: mouth [place] 00 before Medical meals and Branch at bedtime. sucralfate 2022-0 Yes [id number] 1g Take 1 [facility] 1 gram 3-27 tablet by ity of tablet 00:00: mouth [place] 00 before Medical meals and Branch at bedtime. sucralfate 2022-0 Yes [id number] 1g Take 1 [facility] 1 gram 3-27 tablet by ity of tablet 00:00: mouth [place] 00 before Medical meals and Branch at bedtime. sucralfate 2022-0 Yes [id number] 1g Take 1 [facility] 1 gram 3-27 tablet by ity of tablet 00:00: mouth [place] 00 before Medical meals and Branch at bedtime. sucralfate 2022-0 Yes [id number] 1g Take 1 [facility] 1 gram 3-27 tablet by ity of tablet 00:00: mouth [place] 00 before Medical meals and Branch at bedtime. sucralfate 2022-0 Yes [id number] 1g Take 1 [facility] 1 gram 3-27 tablet by ity of tablet 00:00: mouth [place] 00 before Medical meals and Branch at bedtime. sucralfate 2022-0 Yes [id number] 1g Take 1 [facility] 1 gram 3-27 tablet by ity of tablet 00:00: mouth [place] 00 before Medical meals and Branch at bedtime. sucralfate 2021-0 Yes 1g Take 1 g [facility] (CARAFATE) 3-27 by mouth. [facility] ege 1 g tablet 00:00: Medicin e sucralfate 2021-0 Yes 1g Take 1 g [facility] (CARAFATE) 3-27 by mouth. [facility] 1 g tablet 00:00: Medicin e sucralfate 2021-0 Yes 1g Take 1 g [facility] (CARAFATE) 3-27 by mouth. [facility] e[facility] 1 g tablet 00:00: Medicin e metoprolol 0 Yes 100mg QD Take [address] [facility] succinate 3-11 mg by [facility] (TOPROL-XL) 14:10: mouth Medic al 100 MG 24 02 daily. Center hr tablet lisinopriL 2021-0 Yes 40mg QD Take [address] [facility] (PRINIVIL,Z 3-11 by mouth [facility] ESTRIL) 40 14:10: daily. Medic al MG tablet 02 Center prucaloprid 2021-0 Yes 2mg QD Take [address] [facility] e 3-11 by mouth [facility] (Motegrity) 14:10: daily. Medi mari 1 mg Tab 02 Center lubiproston 0 Yes 24ug Q.5D Take [address] [facility] e (AMITIZA) 3-11 mcg by [facility] 24 MCG 14:10: mouth 2 Medical capsule 02 (two) Center times daily. pantoprazol 0 Yes 40mg QD Take [address] [facility] e 3-11 by mouth [facility] (PROTONIX) 14:10: daily. Medic al 40 MG 02 Center tablet clonazePAM Yes .5mg Take 0.[address] [facility] (KlonoPIN) 3-11 mg by [facility] 0.5 MG 14:10: mouth 2 Medical tablet 02 (two) Center times daily as needed for Anxiety. hydrALAZINE Yes 10mg Q.[id number] Take [address] [facility] (APRESOLINE 3-11 [id number] by mouth 3 [facility] ) 10 MG 14:10: 3D (three) Medical tablet 02 times Center daily In am. hydroCHLORO Yes 25mg QD Take [address] [facility] thiazide 3-11 by mouth [facility] (HYDRODIURI 14:10: daily. Medi mari L) 25 MG 02 Center tablet spironolact Yes 25mg QD Take [address] [facility] one 3-11 by mouth [facility] (ALDACTONE) 14:10: daily. Medi mari 25 MG 02 Center tablet gabapentin Yes 100mg Q.[id number] Take [address] [facility] (NEURONTIN) 3-11 [id number] mg by L [facility] 100 MG 14:10: 3D mouth 3 Medical capsule 02 (three) Center times daily. amLODIPine Yes 10mg QD Take [address] [facility] (NORVASC) 3-11 by mouth [facility] 10 MG 14:10: daily In Medical tablet 02 am. Center insulin Yes Inject [facility] aspart 3-11 subcutaneo [facility] protamine-i 14:10: usly 2 Medi mari nsulin 02 (two) Center aspart times (NovoLOG daily with MIX 70/30) breakfast 100 unit/mL and (70-30) dinner. injection metFORMIN Yes 1000mg Take 1,[address] [facility] (GLUCOPHAGE 3-11 mg by [facility] ) 1000 MG 14:10: mouth 2 Medic al tablet 02 (two) Center times daily with breakfast and dinner. ondansetron 2022-0 Yes 4mg Take [address] [facility] (ZOFRAN) 4 3-11 by mouth 2 [facility] MG tablet 14:10: (two) Medical 02 times Center daily as needed for Nausea. liraglutide Yes Inject [facility] (Victoza 3-11 subcutaneo [facility] 2-Patrick) 0.6 14:10: usly. Medica l mg/0.1 mL 02 Center (18 mg/3 mL) PnIj metoprolol 0 Yes 100mg QD Take [address] succinate 3-11 mg by [facility] (TOPROL-XL) 14:10: mouth Medic al 100 MG 24 02 daily. Center hr tablet lisinopriL 0 Yes 40mg QD Take [address] [facility] (PRINIVIL,Z 3-11 by mouth [facility] ESTRIL) 40 14:10: daily. Medic al MG tablet 02 Center prucaloprid 0 Yes 2mg QD Take [address] [facility] e 3-11 by mouth [facility] (Motegrity) 14:10: daily. Medi mari 1 mg Tab 02 Center lubiproston 0 Yes 24ug Q.5D Take [address] [facility] e (AMITIZA) 3-11 mcg by [facility] 24 MCG 14:10: mouth 2 Medical capsule 02 (two) Center times daily. pantoprazol 0 Yes 40mg QD Take [address] [facility] e 3-11 by mouth [facility] (PROTONIX) 14:10: daily. Medic al 40 MG 02 Center tablet clonazePAM 0 Yes .5mg Take 0.[address] [facility] (KlonoPIN) 3-11 mg by [facility] 0.5 MG 14:10: mouth 2 Medical tablet 02 (two) Center times daily as needed for Anxiety. hydrALAZINE 2021-0 Yes 10mg Q.[id number] Take [address] [facility] (APRESOLINE 3-11 [id number] by mouth 3 [facility] ) 10 MG 14:10: 3D (three) Medical tablet 02 times Center daily In am. hydroCHLORO 2021-0 Yes 25mg QD Take [address] [facility] thiazide 3-11 by mouth [facility] (HYDRODIURI 14:10: daily. Medi mari L) 25 MG 02 Center tablet spironolact 2021-0 Yes 25mg QD Take [address] [facility] one 3-11 by mouth [facility] (ALDACTONE) 14:10: daily. Medi mari 25 MG 02 Center tablet gabapentin Yes 100mg Q.[id number] Take [address] [facility] (NEURONTIN) 3-11 [id number] mg by L ukes 100 MG 14:10: 3D mouth 3 Medical capsule 02 (three) Center times daily. amLODIPine Yes 10mg QD Take [address] [facility] (NORVASC) 3-11 by mouth [facility] 10 MG 14:10: daily In Medical tablet 02 am. Center insulin Yes Inject [facility] aspart 3-11 subcutaneo [facility] protamine-i 14:10: usly 2 Medi mari nsulin 02 (two) Center aspart times (NovoLOG daily with MIX 70/30) breakfast 100 unit/mL and (70-30) dinner. injection metFORMIN Yes 1000mg Take 1,[address] [facility] (GLUCOPHAGE 3-11 mg by [facility] ) 1000 MG 14:10: mouth 2 Medic al tablet 02 (two) Center times daily with breakfast and dinner. ondansetron Yes 4mg Take [address] (ZOFRAN) 4 3-11 by mouth 2 [facility] MG tablet 14:10: (two) Medical 02 times Center daily as needed for Nausea. liraglutide Yes Inject [facility] (Victoza 3-11 subcutaneo [facility] 2-[facility]) 0.6 14:10: usly. Medica l mg/0.1 mL 02 [place] (18 mg/3 mL) PnIj METOPROLOL Yes TAKE 1 Unive rs TARTRATE 2-14 TABLET BY ity of 100 mg 00:00: MOUTH [place] tablet 00 TWICE Medical DAILY Branch METOPROLOL Yes TAKE 1 Unive rs TARTRATE 2-14 TABLET BY ity of 100 mg 00:00: MOUTH [place] tablet 00 TWICE Medical DAILY Branch METOPROLOL 2021- No TAKE 1 Univ ers TARTRATE 2-14 06-09 TABLET BY ity o f 100 mg 00:00: 00:00 MOUTH [place] tablet 00 :00 TWICE Medical DAILY Branch HYDROCHLORO Yes [id number] 12.5mg TAKE 1 [facility] THIAZIDE 1-19 CAPSULE BY ity o f 12.5 mg 00:00: MOUTH [place] capsule 00 DAILY Medical Branch HYDROCHLORO 2021-0 Yes [id number] 12.5mg TAKE 1 [facility] THIAZIDE 1-19 CAPSULE BY ity o f 12.5 mg 00:00: MOUTH [place] capsule 00 DAILY Medical Branch HYDROCHLORO 2-0 Yes [id number] 12.5mg TAKE 1 [facility] THIAZIDE 1-19 CAPSULE BY ity o f 12.5 mg 00:00: MOUTH [place] capsule 00 DAILY Medical Branch HYDROCHLORO 2021-0 Yes [id number] 12.5mg TAKE 1 [facility] THIAZIDE 1-19 CAPSULE BY ity o f 12.5 mg 00:00: MOUTH [place] capsule 00 DAILY Medical Branch HYDROCHLORO 2021-0 2021- No [id number] 12.5mg TAKE 1 [facility] THIAZIDE 1-19 07-18 CAPSULE BY ity of 12.5 mg 00:00: 00:00 MOUTH [place] capsule 00 :00 DAILY Medical Branch Prucaloprid 2021-0 Yes [id number] 2mg Take 2 mg [facility] Succinate 1-06 by mouth [facility] 2 MG TABS 00:00: daily. of Medicin e Prucaloprid Yes [id number] 2mg Take 2 mg [facility] e Succinate 1-06 by mouth Hiro ege 2 MG TABS 00:00: daily. of Medicin e PEG-KCl-NaC Yes [id number] [MOVI [facility] l-NaSulf-Na 1-06 PREP] Take [facility] 00:00: as of (MOVIPREP) 00 directed. Medi patsy 100 g SOLR e Prucaloprid Yes [id number] 2mg Take 2 mg [facility] e Succinate 1-06 by mouth Hiro ege 2 MG TABS 00:00: daily. of Medicin e Prucaloprid Yes [id number] 2mg Take 2 mg [facility] e Succinate 1-06 by mouth Hiro ege 2 MG TABS 00:00: daily. of Medicin e NITROGLYCER 2020-[address] 1 Uni [...] 5 Branch MINUTES NEEDED FOR CHEST PAIN. nitroglycer 2020-11 Yes nitroglyce [facility] in 12-28 rin 0.4 mg College (NITROSTAT) 00:00: sublingual of 0.4 mg [address] 1 e tablet TABLET UNDER THE TONGUE EVERY 5 MINUTES NEEDED FOR CHEST PAIN. nitroglycer 2020-11 Yes nitroglyce [facility] in 12-28 rin 0.4 mg [facility] (NITROSTAT) 00:00: sublingual of 0.4 mg [address] 1 e tablet TABLET UNDER THE TONGUE EVERY 5 MINUTES NEEDED FOR CHEST PAIN. NITROGLYCER 2020-[address] 1 Un ally IN 0.4 mg -27 07-27 TABLET ity of sublingual 00:00: 00:00 [place]ER THE [place] tablet 00 :00 TONGUE Medical EVERY 5 Branch MINUTES NEEDED FOR CHEST PAIN. DICLOFENAC 2020-11 Yes [id number] APPLY TO Univers SODIUM 1 % 2-02 THE ity of gel 00:00: AFFECTED [place] 00 AREA FOUR Medical TIMES Branch DAILY DICLOFENAC 2020-11 Yes [id number] APPLY TO Univers SODIUM 1 % 2-02 THE ity of gel 00:00: AFFECTED [place] 00 AREA FOUR Medical TIMES Branch DAILY DICLOFENAC 2020-11 Yes [id number] APPLY TO Univers SODIUM 1 % 2-02 THE ity of gel 00:00: AFFECTED [place] 00 AREA FOUR Medical TIMES Branch DAILY DICLOFENAC 2020-11 Yes [id number] APPLY TO Univers SODIUM 1 % 2-02 THE ity of gel 00:00: AFFECTED [place] 00 AREA FOUR Medical TIMES Branch DAILY DICLOFENAC 2020-11 Yes [id number] APPLY TO Univers SODIUM 1 % 2-02 THE ity of gel 00:00: AFFECTED [place] 00 AREA FOUR Medical TIMES Branch DAILY DICLOFENAC 2020-11 Yes [id number] APPLY TO Univers SODIUM 1 % 2-02 THE ity of gel 00:00: AFFECTED [place] 00 AREA FOUR Medical TIMES Branch DAILY DICLOFENAC 2020-11 Yes [id number] APPLY TO Univers SODIUM 1 % 2-02 THE ity of gel 00:00: AFFECTED [place] 00 [facility] FOUR Medical TIMES Branch DAILY DICLOFENAC 2020-11 Yes [id number] APPLY TO Univers SODIUM 1 % 2-02 THE ity of gel 00:00: AFFECTED [place] 00 [facility] FOUR Medical TIMES Branch DAILY DICLOFENAC 2020-11 Yes [id number] APPLY TO Univers SODIUM 1 % 2-02 THE ity of gel 00:00: AFFECTED 00 [facility] FOUR Medical TIMES Branch DAILY DICLOFENAC 2020-11 Yes [id number] APPLY TO Univers SODIUM 1 % 2-02 THE ity of gel 00:00: AFFECTED [place] 00 [facility] Medical TIMES Branch DAILY DICLOFENAC 2020-11 Yes [id number] APPLY TO Univers SODIUM 1 % 2-02 THE ity of gel 00:00: AFFECTED [place] 00 [facility] Medical TIMES Branch DAILY DICLOFENAC 2020-11 Yes [id number] APPLY TO Univers SODIUM 1 % 2-02 THE ity of gel 00:00: AFFECTED [place] [facility] Medical TIMES Branch DAILY DICLOFENAC 2020-11 Yes [id number] APPLY TO Univers SODIUM 1 % 2-02 THE ity of gel 00:00: AFFECTED [place] [facility] Medical TIMES Branch DAILY DICLOFENAC 2020-11 Yes [id number] APPLY TO Univers SODIUM 1 % 2-02 THE ity of gel 00:00: AFFECTED [place] [facility] Medical TIMES Branch DAILY DICLOFENAC 2020-11 Yes [id number] APPLY TO Univers SODIUM 1 % 2-02 THE ity of gel 00:00: AFFECTED [place] [facility] Medical TIMES Branch DAILY DICLOFENAC 2020-11 Yes [id number] APPLY TO Univers SODIUM 1 % 2-02 THE ity of gel 00:00: AFFECTED [place] [facility] FOUR Medical TIMES Branch DAILY DICLOFENAC 2020-11 Yes [id number] APPLY TO Univers SODIUM 1 % 2-02 THE ity of gel 00:00: AFFECTED [place] 00 [facility] FOUR Medical TIMES Branch DAILY DICLOFENAC 2020-11 Yes [id number] APPLY TO Univers SODIUM 1 % 2-02 THE ity of gel 00:00: AFFECTED [place] [facility] FOUR Medical TIMES Branch DAILY DICLOFENAC 2020-11 Yes [id number] APPLY TO Univers SODIUM 1 % 2-02 THE ity of gel 00:00: AFFECTED [place] [facility] Medical TIMES Branch DAILY DICLOFENAC 2020-11 Yes [id number] APPLY TO Univers SODIUM 1 % 2-02 THE ity of gel 00:00: AFFECTED [place] 00 [facility] FOUR Medical TIMES Branch DAILY DICLOFENAC 2020-11 Yes [id number] APPLY TO Univers SODIUM 1 % 2-02 THE ity of gel 00:00: AFFECTED [place] 00 AREA FOUR Medical TIMES Branch DAILY DICLOFENAC 2020-11 Yes [id number] APPLY TO Univers SODIUM 1 % 2-02 THE ity of gel 00:00: AFFECTED [place] 00 AREA FOUR Medical TIMES Branch DAILY Diclofenac 2020-11 Yes diclofenac [facility] Sodium 1 % 2-02 1 % College GEL 00:00: topical of 00 gel APPLY Medicin TO THE e AFFECTED AREA FOUR TIMES DAILY Diclofenac 2020-11 Yes diclofenac [facility] Sodium 1 % 2-02 1 % [facility] GEL 00:00: topical of 00 gel APPLY Medicin TO THE e AFFECTED AREA FOUR TIMES DAILY DICLOFENAC 2020-11- No [id number] APPLY TO Univers SODIUM 1 % 2-02 10-25 THE ity of gel 00:00: 00:00 AFFECTED [place] 00 :00 AREA FOUR Medical TIMES Branch DAILY DICLOFENAC 2020-11- No [id number] APPLY TO Univers SODIUM 1 % 2-02 10-25 THE ity of gel 00:00: 00:00 AFFECTED [place] 00 :00 AREA FOUR Medical TIMES Branch DAILY colchicine 2020-11 Yes [id number] .6mg Take 1 U nivers 0.6 mg 0-07 tablet by ity of tablet 00:00: mouth [place] 00 daily. Medical Branch colchicine 2020-11 Yes [id number] .6mg Take 1 U nivers 0.6 mg 0-07 tablet by ity of tablet 00:00: mouth [place] 00 daily. Medical Branch colchicine 2020-11 Yes [id number] .6mg Take 1 U nivers 0.6 mg 0-07 tablet by ity of tablet 00:00: mouth [place] 00 daily. Medical Branch colchicine 2020-11 Yes [id number] .6mg Take 1 U nivers 0.6 mg 0-07 tablet by ity of tablet 00:00: mouth [place] 00 daily. Medical Branch colchicine 2020-11 Yes [id number] .6mg Take 1 U nivers 0.6 mg 0-07 tablet by ity of tablet 00:00: mouth [place] 00 daily. Medical Branch colchicine 2020-11 Yes [id number] .6mg Take 1 U nivers 0.6 mg 0-07 tablet by ity of tablet 00:00: mouth [place] 00 daily. Medical Branch colchicine 2020-11 Yes [id number] .6mg Take 1 U nivers 0.6 mg 0-07 tablet by ity of tablet 00:00: mouth [place] 00 daily. Medical Branch colchicine 2020-11 Yes [id number] .6mg Take 1 U nivers 0.6 mg 0-07 tablet by ity of tablet 00:00: mouth [place] 00 daily. Medical Branch colchicine 2020-11 Yes [id number] .6mg Take 1 U nivers 0.6 mg 0-07 tablet by ity of tablet 00:00: mouth [place] 00 daily. Medical Branch colchicine 2020-11 Yes [id number] .6mg Take 1 U nivers 0.6 mg 0-07 tablet by ity of tablet 00:00: mouth [place] 00 daily. Medical Branch colchicine 2020-11 Yes [id number] .6mg Take 1 U nivers 0.6 mg 0-07 tablet by ity of tablet 00:00: mouth [place] 00 daily. Medical Branch colchicine 2020-11 Yes [id number] .6mg Take 1 U nivers 0.6 mg 0-07 tablet by ity of tablet 00:00: mouth [place] 00 daily. Medical Branch colchicine 2020-11 Yes [id number] .6mg Take 1 U nivers 0.6 mg 0-07 tablet by ity of tablet 00:00: mouth [place] 00 daily. Medical Branch colchicine 2020-11- No [id number] .6mg Take 1 Univers 0.6 mg 0-07 09-19 tablet by ity of tablet 00:00: 00:00 mouth [place] 00 :00 daily. Medical Branch TRUEPLUS 0 Yes USE [...] x 5/16 Syrg 00 Medical Branch TRUEPLUS 2021-0 Yes USE TWICE Univ ers INSULIN 1 9-14 DAILY ity of mL 30 gauge 00:00: [place] x /16 Syrg Medical Branch TRUEPLUS 2020-0 Yes USE TWICE Univ ers INSULIN 1 9-14 DAILY ity of mL 30 gauge 00:00: [place] x 16 Syrg [facility] TRUEPLUS 2020-0 Yes USE TWICE [facility] INSULIN 1 9-14 DAILY ity of mL 30 gauge 00:00: [place] x /16 Syrg [facility] TRUEPLUS 2020-0 Yes USE TWICE [facility] INSULIN 1 9-14 DAILY ity of mL 30 gauge 00:00: [place] x /16 Syrg [facility] TRUEPLUS 2020-0 Yes USE TWICE [facility] INSULIN 1 9-14 DAILY ity of mL 30 gauge 00:00: [place] x /16 Syrg [facility] TRUEPLUS 2020-0 Yes USE TWICE [facility] INSULIN 1 9-14 DAILY ity of mL 30 gauge 00:00: [place] x 16 Syrg [facility] TRUEPLUS 2020-0 Yes USE TWICE [facility] INSULIN 1 9-14 DAILY ity of mL 30 gauge 00:00: [place] x 16 Syrg [facility] TRUEPLUS 2020-0 Yes USE TWICE [facility] INSULIN 1 9-14 DAILY ity of mL 30 gauge 00:00: [place] x /16 [facility] TRUEPLUS 2020-0 Yes USE TWICE Univ ers INSULIN 1 9-14 DAILY ity of mL 30 gauge 00:00: [place] x /16 [facility] TRUEPLUS 2020-0 Yes USE TWICE [facility] ers INSULIN 1 9-14 DAILY ity of mL 30 gauge 00:00: [place] x /16 [facility] TRUEPLUS 2020-0 Yes USE TWICE [facility] ers INSULIN 1 9-14 DAILY ity of mL 30 gauge 00:00: [place] x /16 [facility] TRUEPLUS 2020-0 Yes USE TWICE Univ ers INSULIN 1 9-14 DAILY ity of mL 30 gauge 00:00: [place] x 5/16 [facility] TRUEPLUS 2020-0 Yes USE TWICE [facility] ers INSULIN 1 9-14 DAILY ity of mL 30 gauge 00:00: [place] x /16 [facility] TRUEPLUS 2020-0 Yes USE TWICE [facility] ers INSULIN 1 9-14 DAILY ity of mL 30 gauge 00:00: [place] x /16 [facility] TRUEPLUS 2020-0 Yes USE TWICE [facility] ers INSULIN 1 9-14 DAILY ity of mL 30 gauge 00:00: [place] x 03/16 [facility] TRUEPLUS 2020-0 Yes USE TWICE [facility] ers INSULIN 1 9-14 DAILY ity of mL 30 gauge 00:00: [place] x 03/16 [facility] TRUEPLUS 2020-0 Yes USE TWICE [facility] ers INSULIN 1 9-14 DAILY ity of mL 30 gauge 00:00: [place] x 16 [facility] TRUEPLUS 2020-0 Yes USE TWICE [facility] ers INSULIN 1 9-14 DAILY ity of mL 30 gauge 00:00: [place] x / [facility] TRUEPLUS 2020-0 Yes USE TWICE [facility] ers INSULIN 1 9-14 DAILY ity of mL 30 gauge 00:00: x 03/16 [facility] TRUEPLUS 2020-0 Yes USE TWICE [facility] INSULIN 1 9-14 DAILY ity of mL 30 gauge 00:00: x 03/16 [facility] TRUEPLUS 2020-0 Yes USE TWICE [facility] INSULIN 1 9-14 DAILY ity of mL 30 gauge 00:00: [place] x / Syrg [facility] TRUEPLUS 2020-0 Yes USE TWICE [facility] ers INSULIN 1 9-14 DAILY ity of mL 30 gauge 00:00: [place] x 16 [facility] TRUEPLUS 2020-0 Yes USE TWICE [facility] ers INSULIN 1 9-14 DAILY ity of mL 30 gauge 00:00: x 03/16 [facility] TRUEPLUS 2020-0 Yes USE TWICE [facility] ers INSULIN 1 9-14 DAILY ity of mL 30 gauge 00:00: [place] x 16 [facility] mirtazapine 2020-0 Yes 15mg Take 15 mg [facility] 15 mg 7-14 by mouth ity of tablet 09:38: at [place] [address] bedtime. Medical Branch mesalamine 2020-0 Yes 1.5g Take 1.5 g U nivers 0.375 gram 7-14 by mouth ity o f 24 hr 09:38: daily. [place] [address] Medical Branch mirtazapine 2020-0 Yes 15mg Take 15 mg [facility] 15 mg 7-14 by mouth ity of tablet 09:38: at [place] [address] bedtime. Medical Branch mesalamine 2020-0 Yes 1.5g Take 1.5 g U nivers 0.375 gram 7-14 by mouth ity o f 24 hr 09:38: daily. [place] capsule 49 Medical Branch mirtazapine 2020-0 Yes 15mg Take 15 mg [facility] 15 mg 7-14 by mouth ity of tablet 09:38: at [place] [address] bedtime. Medical Branch mesalamine 2020-0 Yes 1.5g Take 1.5 g U nivers 0.375 gram 7-14 by mouth ity o f 24 hr 09:38: daily. [place] capsule 49 Medical Branch mirtazapine 2020-0 Yes 15mg Take 15 mg [facility] 15 mg 7-14 by mouth ity of tablet 09:38: at [place] [address] bedtime. Medical Branch mesalamine 2020-0 Yes 1.5g Take 1.5 g U nivers 0.375 gram 7-14 by mouth ity o f 24 hr 09:38: daily. [place] capsule 49 Medical [facility] mirtazapine 2020-0 Yes 15mg Take 15 mg [facility] 15 mg 7-14 by mouth ity of tablet 09:38: at [place] [address] bedtime. Medical Branch mesalamine 2020-0 Yes 1.5g Take 1.5 g U nivers 0.375 gram 7-14 by mouth ity o f 24 hr 09:38: daily. [place] capsule 49 Medical Branch mirtazapine 2020-0 Yes 15mg Take 15 mg [facility] 15 mg 7-14 by mouth ity of tablet 09:38: at [place] [address] bedtime. Medical Branch mesalamine 2020-0 Yes 1.5g Take 1.5 g U nivers 0.375 gram 7-14 by mouth ity o f 24 hr 09:38: daily. [place] capsule 49 Medical [facility] mirtazapine 2020-0 Yes 15mg Take 15 mg [facility] 15 mg 7-14 by mouth ity of tablet 09:38: at [place] [address] bedtime. Medical Branch mesalamine 2020-0 Yes 1.5g Take 1.5 g U nivers 0.375 gram 7-14 by mouth ity o f 24 hr 09:38: daily. [place] capsule 49 Medical Branch mirtazapine 1-0 Yes 15mg Take 15 mg [facility] 15 mg 7-14 by mouth ity of tablet 09:38: at [place] [address] bedtime. Medical Branch mesalamine 2020-0 Yes 1.5g Take 1.5 g U nivers 0.375 gram 7-14 by mouth ity o f 24 hr 09:38: daily. [place] capsule 49 Medical Branch mirtazapine 2020-0 Yes 15mg Take 15 mg [facility] 15 mg 7-14 by mouth ity of tablet 09:38: at [place] [address] bedtime. Medical Branch mesalamine 2020-0 Yes 1.5g Take 1.5 g U nivers 0.375 gram 7-14 by mouth ity o f 24 hr 09:38: daily. [place] capsule 49 Medical Branch mirtazapine 2020-0 Yes 15mg Take 15 mg [facility] 15 mg 7-14 by mouth ity of tablet 09:38: at [place] [address] bedtime. Medical Branch mesalamine 2020-0 Yes 1.5g Take 1.5 g U nivers 0.375 gram 7-14 by mouth ity o f 24 hr 09:38: daily. [place] capsule 49 Medical [facility] mirtazapine 2020-0 Yes 15mg Take 15 mg [facility] 15 mg 7-14 by mouth ity of tablet 09:38: at [place] [address] bedtime. Medical Branch mesalamine 2020-0 Yes 1.5g Take 1.5 g U nivers 0.375 gram 7-14 by mouth ity o f 24 hr 09:38: daily. [place] capsule 49 Medical Branch mirtazapine 2020-0 Yes 15mg Take 15 mg [facility] 15 mg 7-14 by mouth ity of tablet 09:38: at [place] [address] bedtime. [facility] [place] mesalamine 2020-0 Yes 1.5g Take 1.5 g U nivers 0.375 gram 7-14 by mouth ity o f 24 hr 09:38: daily. [place] capsule 49 Medical Branch mirtazapine 2020-0 Yes 15mg Take 15 mg [facility] 15 mg 7-14 by mouth ity of tablet 09:38: at [place] [address] bedtime. Medical Branch mesalamine 2020-0 Yes 1.5g Take 1.5 g U nivers 0.375 gram 7-14 by mouth ity o f 24 hr 09:38: daily. [place] capsule 49 Medical [facility] mirtazapine 2020-0 Yes 15mg Take 15 mg [facility] 15 mg 7-14 by mouth ity of tablet 09:38: at [place] [address] bedtime. Medical Branch mesalamine 2020-0 Yes 1.5g Take 1.5 g U nivers 0.375 gram 7-14 by mouth ity o f 24 hr 09:38: daily. [place] capsule 49 Medical Branch mirtazapine 2020-0 Yes 15mg Take 15 mg [facility] 15 mg 7-14 by mouth ity of tablet 09:38: at [place] [address] bedtime. Medical Branch mesalamine 2020-0 Yes 1.5g Take 1.5 g U nivers 0.375 gram 7-14 by mouth ity o f 24 hr 09:38: daily. [place] capsule 49 [facility] mirtazapine 2020-0 Yes 15mg Take 15 mg [facility] 15 mg 7-14 by mouth ity of tablet 09:38: at [place] [address] bedtime. Medical Branch mesalamine 2020-0 Yes 1.5g Take 1.5 g U nivers 0.375 gram 7-14 by mouth ity o f 24 hr 09:38: daily. [facility] 49 Medical Branch mirtazapine 2020-0 Yes 15mg Take 15 mg [facility] 15 mg 7-14 by mouth ity of tablet 09:38: at [place] [address] bedtime. Medical Branch mesalamine 2020-0 Yes 1.5g Take 1.5 g U nivers 0.375 gram 7-14 by mouth ity o f 24 hr 09:38: daily. [place] capsule 49 Medical Branch mirtazapine 2020-0 Yes 15mg Take 15 mg [facility] 15 mg 7-14 by mouth ity of tablet 09:38: at [place] [address] bedtime. Medical Branch mesalamine 2020-0 Yes 1.5g Take 1.5 g U nivers 0.375 gram 7-14 by mouth ity o f 24 hr 09:38: daily. [place] capsule 49 Medical Branch mirtazapine 2020-0 Yes 15mg Take 15 mg [facility] 15 mg 7-14 by mouth ity of tablet 09:38: at [place] [address] bedtime. Medical Branch mesalamine 2020-0 Yes 1.5g Take 1.5 g U nivers 0.375 gram 7-14 by mouth ity o f 24 hr 09:38: daily. [place] capsule 49 Medical Branch mirtazapine 2020-0 Yes 15mg Take 15 mg [facility] 15 mg 7-14 by mouth ity of tablet 09:38: at [place] [address] bedtime. Medical Branch mesalamine 2020-0 Yes 1.5g Take 1.5 g U nivers 0.375 gram 7-14 by mouth ity o f 24 hr 09:38: daily. [place] capsule 49 Medical Branch mirtazapine 2020-0 Yes 15mg Take 15 mg [facility] 15 mg 7-14 by mouth ity of tablet 09:38: at [place] [address] bedtime. Medical Branch mesalamine 2020-0 Yes 1.5g Take 1.5 g U nivers 0.375 gram 7-14 by mouth ity o f 24 hr 09:38: daily. [place] capsule 49 Medical Branch mirtazapine 2020-0 Yes 15mg Take 15 mg [facility] 15 mg 7-14 by mouth ity of tablet 09:38: at [place] [address] bedtime. Medical Branch mesalamine 2020-0 Yes 1.5g Take 1.5 g U nivers 0.375 gram 7-14 by mouth ity o f 24 hr 09:38: daily. [place] capsule 49 Medical Branch mirtazapine 2020-0 Yes 15mg Take 15 mg [facility] 15 mg 7-14 by mouth ity of tablet 09:38: at [place] [address] bedtime. Medical Branch mesalamine 2020-0 Yes 1.5g Take 1.5 g U nivers 0.375 gram 7-14 by mouth ity o f 24 hr 09:38: daily. [place] capsule 49 Medical Branch mirtazapine 2020-0 Yes 15mg Take 15 mg [facility] 15 mg 7-14 by mouth ity of tablet 09:38: at [place] [address] bedtime. Medical [place] mesalamine 2020-0 Yes 1.5g Take 1.5 g U nivers 0.375 gram 7-14 by mouth ity o f 24 hr 09:38: daily. [place] capsule 49 Medical Branch mirtazapine 2020-0 Yes 15mg Take 15 mg [facility] 15 mg 7-14 by mouth ity of tablet 09:38: at [place] [address] bedtime. Medical Branch mesalamine 2020-0 Yes 1.5g Take 1.5 g U nivers 0.375 gram 7-14 by mouth ity o f 24 hr 09:38: daily. [place] capsule 49 Medical Branch mirtazapine 2020-0 Yes 15mg Take 15 mg [facility] 15 mg 7-14 by mouth ity of tablet 09:38: at [place] [address] bedtime. Medical [place] mesalamine 2020-0 Yes 1.5g Take 1.5 g U nivers 0.375 gram 7-14 by mouth ity o f 24 hr 09:38: daily. [place] capsule 49 [facility] Branch mirtazapine 2020-0 Yes 15mg Take 15 mg Univers 15 mg 7-14 by mouth ity of tablet 09:38: at [place] [address] bedtime. [facility] mesalamine 2020-0 Yes 1.5g Take 1.5 g U nivers 0.375 gram 7-14 by mouth ity o f 24 hr 09:38: daily. [place] capsule 49 [facility] mirtazapine 2020-0 Yes 15mg Take 15 mg Univers 15 mg 7-14 by mouth ity of tablet 09:38: at [place] [address] bedtime. [facility] mesalamine 2020-0 Yes 1.5g Take 1.5 g U nivers 0.375 gram 7-14 by mouth ity o f 24 hr 09:38: daily. [address] predniSONE 2020-0 Yes 10mg Take 10 mg U nivers 10 mg 6-22 by mouth ity of tablet 00:00: daily. [address] predniSONE 1-0 Yes 10mg Take 10 mg U nivers 10 mg 6-22 by mouth ity of tablet 00:00: daily. [address] predniSONE 2021-0 Yes 10mg Take 10 mg U nivers 10 mg 6-22 by mouth ity of tablet 00:00: daily. [address] predniSONE 2021-0 Yes 10mg Take 10 mg U nivers 10 mg 6-22 by mouth ity of tablet 00:00: daily. [address] predniSONE 2021-0 Yes 10mg Take 10 mg U nivers 10 mg 6-22 by mouth ity of tablet 00:00: daily. [address] predniSONE 2021-0 Yes 10mg Take 10 mg U nivers 10 mg 6-22 by mouth ity of tablet 00:00: daily. [address] predniSONE 2021-0 Yes 10mg Take 10 mg U nivers 10 mg 6-22 by mouth ity of tablet 00:00: daily. [address] predniSONE 2021-0 Yes 10mg Take 10 mg U nivers 10 mg 6-22 by mouth ity of tablet 00:00: daily. [address] predniSONE 2021-0 Yes 10mg Take 10 mg U nivers 10 mg 6-22 by mouth ity of tablet 00:00: daily. [place] [facility] Branch predniSONE 2021-0 Yes 10mg Take 10 mg U nivers 10 mg 6-22 by mouth ity of tablet 00:00: daily. [place] [facility] Branch predniSONE 2021-0 Yes 10mg Take 10 mg U nivers 10 mg 6-22 by mouth ity of tablet 00:00: daily. [place] [facility] predniSONE 2021-0 Yes 10mg Take 10 mg U nivers 10 mg 6-22 by mouth ity of tablet 00:00: daily. [place] [facility] Branch predniSONE 2021-0 Yes 10mg Take 10 mg U nivers 10 mg 6-22 by mouth ity of tablet 00:00: daily. [address] predniSONE 2021-0 Yes 10mg Take 10 mg U nivers 10 mg 6-22 by mouth ity of tablet 00:00: daily. [address] predniSONE 2021-0 Yes 10mg Take 10 mg U nivers 10 mg 6-22 by mouth ity of tablet 00:00: daily. [place] [facility] predniSONE 2021-0 Yes 10mg Take 10 mg U nivers 10 mg 6-22 by mouth ity of tablet 00:00: daily. [address] predniSONE 2021-0 Yes 10mg Take 10 mg U nivers 10 mg 6-22 by mouth ity of tablet 00:00: daily. [address] predniSONE 2021-0 Yes 10mg Take 10 mg U nivers 10 mg 6-22 by mouth ity of tablet 00:00: daily. [address] predniSONE 2021-0 Yes 10mg Take 10 mg U nivers 10 mg 6-22 by mouth ity of tablet 00:00: daily. [address] predniSONE 2021-0 Yes 10mg Take 10 mg U nivers 10 mg 6-22 by mouth ity of tablet 00:00: daily. [address] predniSONE 2021-0 Yes 10mg Take 10 mg U nivers 10 mg 6-22 by mouth ity of tablet 00:00: daily. [address] predniSONE 2021-0 Yes 10mg Take 10 mg U nivers 10 mg 6-22 by mouth ity of tablet 00:00: daily. [address] predniSONE 2021-0 Yes 10mg Take 10 mg U nivers 10 mg 6-22 by mouth ity of tablet 00:00: daily. [address] predniSONE 2021-0 Yes 10mg Take 10 mg U nivers 10 mg 6-22 by mouth ity of tablet 00:00: daily. [place] [facility] predniSONE 2021-0 Yes 10mg Take 10 mg U nivers 10 mg 6-22 by mouth ity of tablet 00:00: daily. [address] predniSONE 2021-0 Yes 10mg Take 10 mg U nivers 10 mg 6-22 by mouth ity of tablet 00:00: daily. [place] [facility] predniSONE 2021-0 Yes 10mg Take 10 mg U nivers 10 mg 6-22 by mouth ity of tablet 00:00: daily. [address] predniSONE 2021-0 Yes 10mg Take 10 mg U nivers 10 mg 6-22 by mouth ity of tablet 00:00: daily. [address] predniSONE 2021-0 Yes prednisone [facility] (DELTASONE) 6-22 10 mg [facility] 10 MG 00:00: tablet of tablet 00 TAKE 1 Medicin TABLET BY e MOUTH EVERY DAY predniSONE 1-0 Yes prednisone [facility] (DELTASONE) 6-22 10 mg [facility] 10 MG 00:00: tablet of tablet 00 TAKE 1 Medicin TABLET BY e MOUTH EVERY DAY predniSONE 1-0 Yes prednisone [facility] (DELTASONE) 6-22 10 mg [facility] 10 MG 00:00: tablet of tablet 00 TAKE 1 Medicin TABLET BY e MOUTH EVERY DAY spironolact 2021-0 Yes 25mg Take 25 mg Univers one 25 mg 6-08 by mouth ity of tablet 00:00: daily. [address] spironolact 2021-0 Yes 25mg Take 25 mg Univers one 25 mg 6-08 by mouth ity of tablet 00:00: daily. [address] spironolact 2021-0 Yes 25mg Take 25 mg Univers one 25 mg 6-08 by mouth ity of tablet 00:00: daily. [address] spironolact 2021-0 Yes 25mg Take 25 mg Univers one 25 mg 6-08 by mouth ity of tablet 00:00: daily. [address] spironolact 1-0 Yes 25mg Take 25 mg Univers one 25 mg 6-08 by mouth ity of tablet 00:00: daily. [address] spironolact 2021-0 Yes 25mg Take 25 mg Univers one 25 mg 6-08 by mouth ity of tablet 00:00: daily. [facility] Branch spironolact 2020-0 Yes 25mg Take 25 mg Univers one 25 mg 6-08 by mouth ity of tablet 00:00: daily. [facility] spironolact 2020-0 Yes 25mg Take 25 mg Univers one 25 mg 6-08 by mouth ity of tablet 00:00: daily. [facility] spironolact 2020-0 Yes 25mg Take 25 mg Univers one 25 mg 6-08 by mouth ity of tablet 00:00: daily. [facility] spironolact 2020-0 Yes 25mg Take 25 mg Univers one 25 mg 6-08 by mouth ity of tablet 00:00: daily. [facility] spironolact 2020-0 Yes 25mg Take 25 mg Univers one 25 mg 6-08 by mouth ity of tablet 00:00: daily. [facility] spironolact 2020-0 Yes 25mg Take 25 mg Univers one 25 mg 6-08 by mouth ity of tablet 00:00: daily. [facility] spironolact 2020-0 Yes 25mg Take 25 mg Univers one 25 mg 6-08 by mouth ity of tablet 00:00: daily. [facility] spironolact 2020-0 Yes 25mg Take 25 mg Univers one 25 mg 6-08 by mouth ity of tablet 00:00: daily. [facility] spironolact 2020-0 Yes 25mg Take 25 mg Univers one 25 mg 6-08 by mouth ity of tablet 00:00: daily. [facility] spironolact 2020-0 Yes 25mg Take 25 mg Univers one 25 mg 6-08 by mouth ity of tablet 00:00: daily. [facility] spironolact 2020-0 Yes 25mg Take 25 mg Univers one 25 mg 6-08 by mouth ity of tablet 00:00: daily. [facility] spironolact 2020-0 Yes 25mg Take 25 mg Univers one 25 mg 6-08 by mouth ity of tablet 00:00: daily. [facility] spironolact 2020-0 Yes 25mg Take 25 mg Univers one 25 mg 6-08 by mouth ity of tablet 00:00: daily. [place] [facility] Branch spironolact 2020-0 Yes 25mg Take 25 mg Univers one 25 mg 6-08 by mouth ity of tablet 00:00: daily. [place] [facility] Branch spironolact 2020-0 Yes 25mg Take 25 mg Univers one 25 mg 6-08 by mouth ity of tablet 00:00: daily. [place] [facility] spironolact 2020-0 Yes 25mg Take 25 mg Univers one 25 mg 6-08 by mouth ity of tablet 00:00: daily. [place] [facility] spironolact 2020-0 Yes 25mg Take 25 mg Univers one 25 mg 6-08 by mouth ity of tablet 00:00: daily. [place] [facility] spironolact 2020-0 Yes 25mg Take 25 mg Univers one 25 mg 6-08 by mouth ity of tablet 00:00: daily. [place] [facility] spironolact 2020-0 Yes 25mg Take 25 mg Univers one 25 mg 6-08 by mouth ity of tablet 00:00: daily. [place] [facility] spironolact 2020-0 Yes 25mg Take 25 mg Univers one 25 mg 6-08 by mouth ity of tablet 00:00: daily. [place] [facility] spironolact 2020-0 Yes 25mg Take 25 mg Univers one 25 mg 6-08 by mouth ity of tablet 00:00: daily. [place] [facility] spironolact 2020-0 Yes 25mg Take 25 mg Univers one 25 mg 6-08 by mouth ity of tablet 00:00: daily. [place] [facility] spironolact 2020-0 Yes 25mg Take 25 mg [place] one 6-08 by mouth. [place] (ALDACTONE) 00:00: of 25 MG 00 Medicin tablet e spironolact Yes 25mg Take 25 mg [place] one 6-08 by mouth. [place] (ALDACTONE) 00:00: of 25 MG 00 Medicin tablet e HYDROcodone 0 Yes chronic 1{tbl} Take 1 Univers -acetaminop 4-14 pain tablet by ity of hen 7.5-325 00:00: mouth [place] mg per 00 every 6 Medical tablet (six) Branch hours as needed for Pain. Indication s: chronic pain hydroCHLORO 2021-0 Yes Essential 12.5mg Take 1 Univers thiazide 4-14 hypertensio capsule by ity of 12.5 mg 00:00: n mouth [place] capsule 00 daily. Medical Branch neomycin-po 2021-0 Yes Other 3[drp] Place 3 Univers lymyxin-hyd 4-14 infective Drops in ity of rocortisone 00:00: acute left ear 4 [place] 3.5-,000- 00 otitis (four) Medi mari 1 externa of times Branch mg/mL-unit/ left ear daily. mL-% otic susp neomycin-po 2021-0 Yes [id number] 3[drp] Place 3 [facility] lymyxin-hyd 4-14 Drops in ity of rocortisone 00:00: left ear 4 [place] 3.5-,000 (four) Medica l 1 times Branch mg/mL-unit/ daily. mL-% otic susp neomycin-po 2021-0 Yes [id number] 3[drp] Place 3 [facility] lymyxin-hyd 4-14 Drops in ity of rocortisone 00:00: left ear 4 [place] 3.5-, (four) Medica l 1 times Branch mg/mL-unit/ daily. mL-% otic susp neomycin-po 2021-0 Yes [id number] 3[drp] Place 3 [facility] lymyxin-hyd 4-14 Drops in ity of rocortisone 00:00: left ear 4 [place] 3.5-,000- 00 (four) Medica l 1 times Branch mg/mL-unit/ daily. mL-% otic susp neomycin-po 2021-0 Yes [id number] 3[drp] Place 3 [facility] lymyxin-hyd 4-14 Drops in ity of rocortisone 00:00: left ear 4 [place] 3.5-,000- 00 (four) Medica l 1 times Branch mg/mL-unit/ daily. mL-% otic susp neomycin-po 2021-0 Yes [id number] 3[drp] Place 3 [facility] lymyxin-hyd 4-14 Drops in ity of rocortisone 00:00: left ear 4 [place] 3.5-,000- 00 (four) Medica l 1 times Branch mg/mL-unit/ daily. mL-% otic susp neomycin-po 2021-0 Yes [id number] 3[drp] Place 3 [facility] lymyxin-hyd 4-14 Drops in ity of rocortisone 00:00: left ear 4 [place] 3.5-10,000- 00 (four) Medica l 1 times Branch mg/mL-unit/ daily. mL-% otic susp neomycin-po 2021-0 Yes [id number] 3[drp] Place 3 [facility] lymyxin-hyd 4-14 Drops in ity of rocortisone 00:00: left ear 4 [place] 3.5-10,000- 00 (four) Medica l 1 times Branch mg/mL-unit/ daily. mL-% otic susp neomycin-po 2021-0 Yes [id number] 3[drp] Place 3 [facility] lymyxin-hyd 4-14 Drops in ity of rocortisone 00:00: left ear 4 [place] 3.5-000- 00 (four) Medica l 1 times Branch mg/mL-unit/ daily. mL-% otic susp neomycin-po 2021-0 Yes [id number] 3[drp] Place 3 [facility] lymyxin-hyd 4-14 Drops in ity of rocortisone 00:00: left ear 4 [place] 3.5-,000 (four) Medica l 1 times Branch mg/mL-unit/ daily. mL-% otic susp neomycin-po 2021-0 Yes [id number] 3[drp] Place 3 [facility] lymyxin-hyd 4-14 Drops in ity of rocortisone 00:00: left ear 4 [place] 3.5-10,000- 00 (four) Medica l 1 times Branch mg/mL-unit/ daily. mL-% otic susp neomycin-po 2021-0 Yes [id number] 3[drp] Place 3 [facility] lymyxin-hyd 4-14 Drops in ity of rocortisone 00:00: left ear 4 [place] 3.5-10,000- 00 (four) Medica l 1 times Branch mg/mL-unit/ daily. mL-% otic susp neomycin-po 2021-0 Yes [id number] 3[drp] Place 3 [facility] lymyxin-hyd 4-14 Drops in ity of rocortisone 00:00: left ear 4 [place] 3.5-10,000- 00 (four) Medica l 1 times Branch mg/mL-unit/ daily. mL-% otic susp neomycin-po 2021-0 Yes [id number] 3[drp] Place 3 [facility] lymyxin-hyd 4-14 Drops in ity of rocortisone 00:00: left ear 4 [place] 3.5-10,000- 00 (four) Medica l 1 times Branch mg/mL-unit/ daily. mL-% otic susp neomycin-po 2021-0 Yes [id number] 3[drp] Place 3 [facility] lymyxin-hyd 4-14 Drops in ity of rocortisone 00:00: left ear 4 [place] 3.5-10,000- 00 (four) Medica l 1 times Branch mg/mL-unit/ daily. mL-% otic susp neomycin-po 2021-0 Yes [id number] 3[drp] Place 3 [facility] lymyxin-hyd 4-14 Drops in ity of rocortisone 00:00: left ear 4 [place] 3.5-000 (four) Medica l 1 times Branch mg/mL-unit/ daily. mL-% otic susp neomycin-po 2021-0 Yes [id number] 3[drp] Place 3 [facility] lymyxin-hyd 4-14 Drops in ity of rocortisone 00:00: left ear 4 [place] 3.5-000 (four) Medica l 1 times Branch mg/mL-unit/ daily. mL-% otic susp neomycin-po 2021-0 Yes [id number] 3[drp] Place 3 [facility] lymyxin-hyd 4-14 Drops in ity of rocortisone 00:00: left ear 4 [place] 3.5- (four) Medica l 1 times Branch mg/mL-unit/ daily. mL-% otic susp neomycin-po 2021-0 Yes [id number] 3[drp] Place 3 [facility] lymyxin-hyd 4-14 Drops in ity of rocortisone 00:00: left ear 4 [place] 3.5-10,000 (four) Medica l 1 times Branch mg/mL-unit/ daily. mL-% otic susp neomycin-po 2021-0 Yes [id number] 3[drp] Place 3 [facility] lymyxin-hyd 4-14 Drops in ity of rocortisone 00:00: left ear 4 [place] 3.5-10,000- 00 (four) Medica l 1 times Branch mg/mL-unit/ daily. mL-% otic susp neomycin-po 2021-0 Yes [id number] 3[drp] Place 3 [facility] lymyxin-hyd 4-14 Drops in ity of rocortisone 00:00: left ear 4 [place] 3.5-10,000- 00 (four) Medica l 1 times Branch mg/mL-unit/ daily. mL-% otic susp neomycin-po 2021-0 Yes [id number] 3[drp] Place 3 [facility] lymyxin-hyd 4-14 Drops in ity of rocortisone 00:00: left ear 4 [place] 3.5-000- 00 (four) Medica l 1 times Branch mg/mL-unit/ daily. mL-% otic susp neomycin-po 2021-0 Yes [id number] 3[drp] Place 3 [facility] lymyxin-hyd 4-14 Drops in ity of rocortisone 00:00: left ear 4 [place] 3.5-000- (four) Medica l 1 times Branch mg/mL-unit/ daily. mL-% otic susp neomycin-po 2021-0 Yes [id number] 3[drp] Place 3 [facility] lymyxin-hyd 4-14 Drops in ity of rocortisone 00:00: left ear 4 [place] 3.5-,000 00 (four) Medica l 1 times Branch mg/mL-unit/ daily. mL-% otic susp neomycin-po 2021-0 Yes [id number] 3[drp] Place 3 [facility] lymyxin-hyd 4-14 Drops in ity of rocortisone 00:00: left ear 4 [place] 3.5-,000- (four) Medica l 1 times Branch mg/mL-unit/ daily. mL-% otic susp neomycin-po 2021-0 Yes [id number] 3[drp] Place 3 [facility] lymyxin-hyd 4-14 Drops in ity of rocortisone 00:00: left ear 4 [place] 3.5-10,000- 00 (four) Medica l 1 times Branch mg/mL-unit/ daily. mL-% otic susp neomycin-po 2021-0 Yes [id number] 3[drp] Place 3 [facility] lymyxin-hyd 4-14 Drops in ity of rocortisone 00:00: left ear 4 [place] 3.5-,000- 00 (four) Medica l 1 times Branch mg/mL-unit/ daily. mL-% otic susp neomycin-po Yes [id number] 3[drp] Place 3 [facility] lymyxin-hyd 4-14 Drops in ity of rocortisone 00:00: left ear 4 [place] 3.5-10,000- 00 (four) Medica l 1 times Branch mg/mL-unit/ daily. mL-% otic susp neomycin-po Yes [id number] 3[drp] Place 3 [facility] lymyxin-hyd 4-14 Drops in ity of rocortisone 00:00: left ear 4 [place] 3.5-,000- 00 (four) Medica l 1 times Branch mg/mL-unit/ daily. mL-% otic susp Neomycin-Po Yes 3[drp] Place 3 [facility] lymyxin-HC 4-14 Drops in Colle ge [id number] 00:00: ear(s). of SUSP Medicin e Neomycin-Po Yes 3[drp] Place 3 [facility] lymyxin-HC 4-14 Drops in Colle ge [id number] 00:00: ear(s). of SUSP 00 Medicin e insulin NPH Yes Type 2 ADMINISTER Univers [...] 00 (two) Medical times Branch daily. metFORMIN 2021-0 Yes Type 2 1000mg Take 1 Un [...] mcg DsDv 00 EVERY DAY [facility] [place] TRELEGY 2019- Yes INHALE 1 Univer s [...] mcg DsDv 00 EVERY DAY [facility] [place] TRELEGY 2019- Yes INHALE 1 Univer s ELLIPTA 2-24 PUFF BY ity of 100-62.5-25 00:00: MOUTH [place] mcg DsDv 00 EVERY DAY Medica [facility] [place] TRELEGY 2019- Yes INHALE 1 Univer [facility] ELLIPTA 2-24 PUFF BY ity of 100-62.5-25 00:00: MOUTH [place] mcg DsDv 00 EVERY DAY [facility] TRELEGY 2019- Yes INHALE 1 Un[facility] ELLIPTA 2-24 PUFF BY ity of 100-62.5-25 00:00: MOUTH [place] mcg DsDv 00 EVERY DAY [facility] [place] TRELEGY 2019- Yes INHALE 1 Univer s ELLIPTA 2-24 PUFF BY ity of 100-62.5-25 00:00: MOUTH [place] mcg DsDv 00 EVERY DAY [facility] [place] TRELEGY 2019- Yes INHALE 1 Univer s ELLIPTA 2-24 PUFF BY ity of 100-62.5-25 00:00: MOUTH [place] mcg DsDv 00 EVERY DAY [facility] [place] TRELEGY 2019- Yes INHALE 1 Univer s ELLIPTA 2-24 PUFF BY ity of 100-62.5-25 00:00: MOUTH [place] mcg DsDv 00 EVERY DAY [facility] [place] TRELEGY 2019- Yes INHALE 1 Univer s ELLIPTA 2-24 PUFF BY ity of 100-62.5-25 00:00: MOUTH [place] mcg DsDv 00 EVERY DAY [facility] [place] TRELEGY 2019- Yes INHALE 1 Univer s ELLIPTA 2-24 PUFF BY ity of 100-62.5-25 00:00: MOUTH [place] mcg DsDv 00 EVERY DAY [facility] [place] ipratropium 2020- Yes Univer s 0.02 % [...] of nebulizer 00:00: [place] solution [facility] zolpidem 10 2019-11 Yes 10mg Take 10 mg [facility] mg tablet 2-14 by mouth ity of 00:00: at bedtime [place] 00 as needed. Medical Branch zolpidem 10 2019-11 Yes 10mg Take 10 mg [facility] mg tablet 2-14 by mouth ity of 00:00: at bedtime [place] 00 as needed. Medical Branch zolpidem 10 2019-11 Yes 10mg Take 10 mg [facility] mg tablet 2-14 by mouth ity of 00:00: at bedtime [place] 00 as needed. Medical Branch zolpidem 10 2019-11 Yes 10mg Take 10 mg [facility] mg tablet 2-14 by mouth ity of 00:00: at bedtime [place] 00 as needed. Medical Branch zolpidem 10 [...] 00:00: at bedtime [place] 00 as needed. [facility] Branch zolpidem 10 2019-11 Yes 10mg Take 10 mg [facility] mg tablet 2-14 by mouth ity of 00:00: at bedtime [place] 00 as needed. [facility] Branch zolpidem 10 2019-11 Yes 10mg Take 10 mg [facility] mg tablet 2-14 by mouth ity of 00:00: at bedtime [place] 00 as needed. [facility] Branch zolpidem 10 2019-11 Yes 10mg Take 10 mg [facility] mg tablet 2-14 by mouth ity of 00:00: at bedtime [place] 00 as needed. [facility] Branch zolpidem 10 2019-11 Yes 10mg Take 10 mg [facility] mg tablet 2-14 by mouth ity of 00:00: at bedtime [place] 00 as needed. [facility] Branch zolpidem 10 2019-11 Yes 10mg Take 10 mg [facility] mg tablet 2-14 by mouth ity of 00:00: at bedtime [place] 00 as needed. Medical Branch zolpidem 10 2019-11 Yes 10mg Take 10 mg [facility] mg tablet 2-14 by mouth ity of 00:00: at bedtime [place] 00 as needed. [facility] Branch zolpidem 10 2019-11 Yes 10mg Take [...] times Branch higher daily with meals. Diclofenac 2019- Yes Morbid Apply to U nivers Sodium 2-04 obesity area(s) 4 ity o f (VOLTAREN) 00:00: with body (four) [place] 1 % gel 00 mass index times Medic al of 50 or daily. Branch higher dicyclomine 2019- Yes TK 1 C PO [...] 8 H PRF Branch ABDOMINAL PAIN. dicyclomine 2020-1 Yes TK 1 C PO U nivers 10 mg 1-24 IN THE ity of capsule 00:00: MORNING [place] 00 AND THEN Q Medical 8 H PRF Branch ABDOMINAL PAIN. dicyclomine 2020-1 Yes TK 1 C PO U nivers [...] 8 H PRF Branch ABDOMINAL PAIN. dicyclomine 2020-1 Yes TK 1 C PO U nivers 10 mg 1-24 IN THE ity of capsule 00:00: MORNING [place] 00 AND THEN Q Medical 8 H PRF Branch ABDOMINAL PAIN. dicyclomine 2019-1 Yes TK 1 C PO U nivers 10 mg 1-24 IN THE ity of capsule 00:00: MORNING [place] 00 AND THEN Q Medical 8 H PRF Branch ABDOMINAL PAIN. dicyclomine 2019- Yes TK 1 C PO U nivers 10 mg 1-24 IN THE ity of capsule 00:00: MORNING [place] 00 AND THEN Q Medical 8 H PRF Branch ABDOMINAL PAIN. dicyclomine 2020-1 Yes TK 1 C PO U nivers 10 mg 1-24 IN THE ity of capsule 00:00: MORNING [place] 00 AND THEN Q Medical 8 H PRF Branch ABDOMINAL PAIN. dicyclomine 2019- Yes TK 1 C PO U nivers 10 mg 1-24 IN THE ity of capsule 00:00: MORNING [place] 00 AND THEN Q Medical 8 H PRF Branch ABDOMINAL PAIN. dicyclomine 2020-1 Yes TK 1 C PO U nivers 10 mg 1-24 IN THE ity of capsule 00:00: MORNING [place] 00 AND THEN Q Medical 8 H PRF Branch ABDOMINAL PAIN. dicyclomine 2020-1 Yes TK 1 C PO U nivers 10 mg 1-24 IN THE ity of capsule 00:00: MORNING [place] 00 AND THEN Q Medical 8 H PRF Branch ABDOMINAL PAIN. dicyclomine 2020-1 Yes TK 1 C PO U nivers 10 mg 1-24 IN THE ity of capsule 00:00: MORNING 00 AND THEN Q Medical 8 H PRF Branch ABDOMINAL PAIN. dicyclomine 2020-1 Yes TK 1 C PO U nivers 10 mg 1-24 IN THE ity of capsule 00:00: MORNING 00 AND THEN Q Medical 8 H PRF Branch ABDOMINAL PAIN. dicyclomine 2020- Yes TK 1 C PO U nivers 10 mg 1-24 IN THE ity of capsule 00:00: MORNING 00 AND THEN Q Medical 8 H PRF Branch ABDOMINAL PAIN. dicyclomine 2020-1 Yes TK 1 C PO U nivers 10 mg 1-24 IN THE ity of capsule 00:00: MORNING 00 AND THEN Q Medical 8 H PRF Branch ABDOMINAL PAIN. dicyclomine 2020-1 Yes TK 1 C PO U nivers 10 mg 1-24 IN THE ity of capsule 00:00: MORNING 00 AND THEN Q Medical 8 H PRF Branch ABDOMINAL PAIN. dicyclomine 2020-1 Yes TK 1 C PO U nivers 10 mg 1-24 IN THE ity of capsule 00:00: MORNING 00 AND THEN Q Medical 8 H PRF Branch ABDOMINAL PAIN. MOTEGRITY 2020-1 Yes TK 1 T PO Uni vers tablet 1-12 D ity of 00:00: 00 Medical Branch MOTEGRITY 2020-1 Yes TK 1 T PO Uni vers tablet 1-12 D ity of 00:00: 00 Medical Branch MOTEGRITY 2020-1 Yes TK 1 T PO Uni vers tablet 1-12 D ity of 00:00: 00 Medical Branch MOTEGRITY 2020-1 Yes TK 1 T PO Uni vers tablet 1-12 D ity of 00:00: 00 Medical Branch MOTEGRITY 2020-1 Yes TK 1 T PO Uni vers tablet 1-12 D ity of 00:00: [place] 00 [facility] MOTEGRITY 2020- Yes TK 1 T PO Uni vers tablet 1-12 D ity of 00:00: [place] [facility] MOTEGRITY 2020- Yes TK 1 T PO Uni vers tablet 1-12 D ity of 00:00: [place] [facility] MOTEGRITY 2020- Yes TK 1 T PO Uni vers tablet 1-12 D ity of 00:00: [place] [facility] MOTEGRITY 2020- Yes TK 1 T PO Uni vers tablet 1-12 D ity of 00:00: [place] [facility] MOTEGRITY 2020- Yes TK 1 T PO Uni vers tablet 1-12 D ity of 00:00: [place] [facility] MOTEGRITY 2020- Yes TK 1 T PO Uni vers tablet 1-12 D ity of 00:00: [place] [facility] MOTEGRITY 2020- Yes TK 1 T PO Uni vers tablet 1-12 D ity of 00:00: [place] [facility] MOTEGRITY 2020- Yes TK 1 T PO Uni vers tablet 1-12 D ity of 00:00: [place] [facility] MOTEGRITY 2020- Yes TK 1 T PO Uni vers tablet 1-12 D ity of 00:00: [place] [facility] MOTEGRITY 2020- Yes TK 1 T PO Uni vers tablet 1-12 D ity of 00:00: [place] [facility] MOTEGRITY 2020- Yes TK 1 T PO Uni vers tablet 1-12 D ity of 00:00: [place] [facility] MOTEGRITY 2020- Yes TK 1 T PO Uni vers tablet 1-12 D ity of 00:00: [place] [facility] MOTEGRITY 2020- Yes TK 1 T PO Uni vers tablet 1-12 D ity of 00:00: [place] 00 [facility] MOTEGRITY 2020- Yes TK 1 T PO Uni vers tablet 1-12 D ity of 00:00: [place] 00 [facility] MOTEGRITY 2020- Yes TK 1 T PO Uni vers tablet 1-12 D ity of 00:00: [place] 00 [facility] MOTEGRITY 2020- Yes TK 1 T PO Uni vers tablet 1-12 D ity of 00:00: [place] [facility] MOTEGRITY 2020- Yes TK 1 T PO [...] D ity of 00:00: Medical Branch gabapentin 2020- Yes Chronic 600mg Take 1 U nivers 600 mg 1-11 bilateral tablet by ity of tablet 00:00: [place] 3 [place] pain with (three) Medical bilateral times Branch sciatica daily. ondansetron 2020- Yes as needed. Univers 4 mg tablet 1-04 ity of 00:00: [facility] Branch ondansetron 2020 Yes as needed. Univers 4 mg tablet 1-04 ity of 00:00: [facility] Branch ondansetron 2020- Yes as needed. Univers 4 mg tablet 1-04 ity of 00:00: [facility] Branch ondansetron 2020- Yes as needed. Univers 4 mg tablet 1-04 ity of 00:00: [facility] Branch ondansetron 2020- Yes as needed. Univers 4 mg tablet 1-04 ity of 00:00: [facility] Branch ondansetron 2020- Yes as needed. Univers 4 mg tablet 1-04 ity of 00:00: [facility] Branch ondansetron 2020- Yes as needed. Univers 4 mg tablet 1-04 ity of 00:00: [facility] Branch ondansetron 2020- Yes as needed. Univers 4 mg tablet 1-04 ity of 00:00: 00 Medical Branch ondansetron 2020-1 Yes as needed. Univers 4 mg tablet 1-04 ity of 00:00: 00 Medical Branch ondansetron 2020-1 Yes as needed. Univers 4 mg tablet 1-04 ity of 00:00: 00 Medical Branch ondansetron 2020-1 Yes as needed. Univers 4 mg tablet 1-04 ity of 00:00: Medical Branch ondansetron 2020-1 Yes as needed. Univers 4 mg tablet 1-04 ity of 00:00: Medical Branch ondansetron 2020-1 Yes as needed. Univers 4 mg tablet 1-04 ity of 00:00: Medical Branch ondansetron 2020- Yes TK 2 TS PO Univers 4 mg tablet 1-04 Q 12 H ity of 00:00: Medical Branch ondansetron 2020-1 Yes as needed. Univers 4 mg tablet 1-04 ity of 00:00: Medical Branch ondansetron 2020-1 Yes as needed. Univers 4 mg tablet 1-04 ity of 00:00: Medical Branch ondansetron 2020-1 Yes as needed. Univers 4 mg tablet 1-04 ity of 00:00: Medical Branch ondansetron 2020-1 Yes as needed. Univers 4 mg tablet 1-04 ity of 00:00: Medical Branch ondansetron 2020-1 Yes as needed. Univers 4 mg tablet 1-04 ity of 00:00: Medical Branch ondansetron 2020-1 Yes as needed. Univers 4 mg tablet 1-04 ity of 00:00: Medical Branch ondansetron 2020-1 Yes as needed. Univers 4 mg tablet 1-04 ity of 00:00: Medical Branch ondansetron 2020-1 Yes as needed. Univers 4 mg tablet 1-04 ity of 00:00: Medical Branch ondansetron 2020-1 Yes as needed. Univers 4 mg tablet 1-04 ity of 00:00: Medical Branch ondansetron 2020-1 Yes as needed. Univers 4 mg tablet 1-04 ity of 00:00: Medical Branch ondansetron 2020-1 Yes as needed. Univers 4 mg tablet 1-04 ity of 00:00: Medical Branch ondansetron 2020- Yes as needed. Univers 4 mg tablet 1-04 ity of 00:: Medical Branch ondansetron 2020- Yes as needed. Univers 4 mg tablet 1-04 ity of 00:: Medical Branch ondansetron 2020-1 Yes as needed. Univers 4 mg tablet 1-04 ity of 00:: Medical Branch ondansetron 2020- Yes as needed. Univers 4 mg tablet 1-04 ity of 00:: Medical Branch diclofenac 2020- Yes [id number] 75mg Take 1 Univers 75 mg EC 0-08 tablet by ity of tablet 00:00: mouth (two) Medical times Branch daily with meals. diclofenac 2020- Yes [id number] 75mg Take 1 Univers 75 mg EC 0-08 tablet by ity of tablet 00:00: mouth (two) Medical times Branch daily with meals. diclofenac 2020- Yes [id number] 75mg Take 1 Univers 75 mg EC 0-08 tablet by ity of tablet 00:00: mouth (two) Medical times Branch daily with meals. diclofenac 2020- Yes [id number] 75mg Take 1 [facility] 75 mg EC 0-08 tablet by ity of tablet 00:00: mouth (two) Medical times Branch daily with meals. diclofenac 2020- Yes [id number] 75mg Take 1 Univers 75 mg EC 0-08 tablet by ity of tablet 00:00: mouth [place] (two) Medical times Branch daily with meals. diclofenac 2020- Yes [id number] 75mg Take 1 Univers 75 mg EC 0-08 tablet by ity of tablet 00:00: mouth (two) Medical times Branch daily with meals. diclofenac 2020-1 Yes [id number] 75mg Take 1 [facility] 75 mg EC 0-08 tablet by ity of tablet 00:00: mouth [place] (two) Medical times Branch daily with meals. diclofenac 2020-1 Yes [id number] 75mg Take 1 Univers 75 mg EC 0-08 tablet by ity of tablet 00:00: mouth (two) Medical times Branch daily with meals. diclofenac 2020- Yes [id number] 75mg Take 1 [facility] 75 mg EC 0-08 tablet by ity of tablet 00:00: mouth 2 (two) Medical times Branch daily with meals. diclofenac 2020-1 Yes [id number] 75mg Take 1 [facility] 75 mg EC 0-08 tablet by ity of tablet 00:00: mouth (two) Medical times Branch daily with meals. diclofenac 2020-1 Yes [id number] 75mg Take 1 Univers 75 mg EC 0-08 tablet by ity of tablet 00:00: mouth (two) Medical times Branch daily with meals. diclofenac 2020-1 Yes [id number] 75mg Take 1 [facility] 75 mg EC 0-08 tablet by ity of tablet 00:00: mouth (two) Medical times Branch daily with meals. diclofenac 2020-1 Yes [id number] 75mg Take 1 [facility] 75 mg EC 0-08 tablet by ity of tablet 00:00: mouth [place] (two) Medical times Branch daily with meals. diclofenac 2020-1 Yes [id number] 75mg Take 1 Univers 75 mg EC 0-08 tablet by ity of tablet 00:00: mouth [place] (two) Medical times Branch daily with meals. diclofenac 2020-1 Yes [id number] 75mg Take 1 [facility] 75 mg EC 0-08 tablet by ity of tablet 00:00: mouth [place] (two) Medical times Branch daily with meals. diclofenac 2020-1 Yes [id number] 75mg Take 1 [facility] 75 mg EC 0-08 tablet by ity of tablet 00:00: mouth [place] (two) Medical times Branch daily with meals. diclofenac 2020-1 Yes [id number] 75mg Take 1 [facility] 75 mg EC 0-08 tablet by ity of tablet 00:00: mouth [place] (two) Medical times Branch daily with meals. diclofenac 2020-1 Yes [id number] 75mg Take 1 [facility] 75 mg EC 0-08 tablet by ity of tablet 00:00: mouth [place] (two) Medical times Branch daily with meals. diclofenac 2020-1 Yes [id number] 75mg Take 1 [facility] 75 mg EC 0-08 tablet by ity of tablet 00:00: mouth [place] (two) Medical times Branch daily with meals. diclofenac 2020-1 Yes [id number] 75mg Take 1 [facility] 75 mg EC 0-08 tablet by ity of tablet 00:00: mouth [place] (two) Medical times Branch daily with meals. diclofenac 2020-1 Yes [id number] 75mg Take 1 [facility] 75 mg EC 0-08 tablet by ity of tablet 00:00: mouth 2 [place] 00 (two) Medical times Branch daily with meals. diclofenac 2019-11 Yes [id number] 75mg Take 1 Univers 75 mg EC 0-08 tablet by ity of tablet 00:00: mouth 2 [place] 00 (two) Medical times Branch daily with meals. diclofenac 2019-11 Yes Morbid 75mg Take 1 Uni vers 75 mg EC 0-08 obesity tablet by ity of tablet 00:00: with body mouth 2 [place] 00 mass index (two) Medical of 50 or times Branch higher daily with meals. diclofenac 2019-11- No [id number] 75mg Take 1 Univers 75 mg EC 0-08 10-25 tablet by ity o f tablet 00:00: 00:00 mouth 2 [place] 00 :00 (two) Medical times Branch daily with meals. diclofenac 2019-11 No [id number] 75mg Take 1 Univers 75 mg EC 0-08 10-25 tablet by ity o f tablet 00:00: [...] Medical TIMES Branch DAILY CLONIDINE 2020-0 Yes [id number] TAKE 1 Un ally 0.2 mg 8-06 TABLET BY ity of tablet 00:00: MOUTH [place] 00 THREE Medical TIMES Branch DAILY CLONIDINE 2020-0 Yes [id number] TAKE 1 Un ally 0.2 mg 8-06 TABLET BY ity of tablet 00:00: MOUTH [place] 00 THREE Medical TIMES Branch DAILY CLONIDINE 2020-0 Yes [id number] TAKE 1 Un ally 0.2 mg 8-06 TABLET BY ity of tablet 00:00: MOUTH [place] 00 THREE Medical TIMES Branch DAILY CLONIDINE 2020-0 Yes [id number] TAKE 1 Un ally 0.2 mg 8-06 TABLET BY ity of tablet 00:00: MOUTH [place] 00 THREE Medical TIMES Branch DAILY CLONIDINE 2020-0 Yes [id number] TAKE 1 Un ally 0.2 mg 8-06 TABLET BY ity of tablet 00:00: MOUTH THREE Medical TIMES Branch DAILY CLONIDINE 2020-0 Yes [id number] TAKE 1 Un ally 0.2 mg 8-06 TABLET BY ity of tablet 00:00: MOUTH THREE Medical TIMES Branch DAILY CLONIDINE 2020-0 Yes [id number] TAKE 1 Un ally 0.2 mg 8-06 TABLET BY ity of tablet 00:00: MOUTH THREE Medical TIMES Branch DAILY CLONIDINE 2020-0 Yes [id number] TAKE 1 Un ally 0.2 mg 8-06 TABLET BY ity of tablet 00:00: MOUTH THREE Medical TIMES Branch DAILY CLONIDINE 2020-0 Yes [id number] TAKE 1 Un ally 0.2 mg 8-06 TABLET BY ity of tablet 00:00: THREE Medical TIMES Branch DAILY CLONIDINE 2020-0 Yes [id number] TAKE 1 Un ally 0.2 mg 8-06 TABLET BY ity of tablet 00:00: THREE Medical TIMES Branch DAILY CLONIDINE 2020-0 Yes [id number] TAKE 1 Un ally 0.2 mg 8-06 TABLET BY ity of tablet 00:00: MOUTH THREE Medical TIMES Branch DAILY CLONIDINE 2020-0 Yes [id number] TAKE 1 Un ally 0.2 mg 8-06 TABLET BY ity of tablet 00:00: MOUTH THREE Medical TIMES Branch DAILY CLONIDINE 2020-0 Yes [id number] TAKE 1 Un ally 0.2 mg 8-06 TABLET BY ity of tablet 00:00: THREE Medical TIMES Branch DAILY CLONIDINE 2020-0 Yes [id number] TAKE 1 Un ally 0.2 mg 8-06 TABLET BY ity of tablet 00:00: THREE Medical TIMES Branch DAILY CLONIDINE 2020-0 Yes [id number] TAKE 1 Un ally 0.2 mg 8-06 TABLET BY ity of tablet 00:00: MOUTH THREE Medical TIMES Branch DAILY CLONIDINE 2020-0 Yes [id number] TAKE 1 Un ally 0.2 mg 8-06 TABLET BY ity of tablet 00:00: MOUTH THREE Medical TIMES Branch DAILY CLONIDINE 2020-0 Yes [id number] TAKE 1 Un ally 0.2 mg 8-06 TABLET BY ity of tablet 00:00: MOUTH THREE Medical TIMES Branch DAILY CLONIDINE 2020-0 Yes [id number] TAKE 1 Un ally 0.2 mg 8-06 TABLET BY ity of tablet 00:00: MOUTH THREE Medical TIMES Branch DAILY CLONIDINE 2020-0 Yes [id number] TAKE 1 Un ally 0.2 mg 8-06 TABLET BY ity of tablet 00:00: [facility] THREE Medical TIMES Branch DAILY CLONIDINE 2020-0 Yes [id number] TAKE 1 Un ally 0.2 mg 8-06 TABLET BY ity of tablet 00:00: [facility] THREE Medical TIMES Branch DAILY CLONIDINE 2020-0 Yes [id number] TAKE 1 Un ally 0.2 mg 8-06 TABLET BY ity of tablet 00:00: [facility] THREE Medical TIMES Branch DAILY CLONIDINE 2020-0 Yes [id number] TAKE 1 Un ally 0.2 mg 8-06 TABLET BY ity of tablet 00:00: [facility] THREE Medical TIMES Branch DAILY CLONIDINE 2020-0 Yes [id number] TAKE 1 Un ally 0.2 mg 8-06 TABLET BY ity of tablet 00:00: [facility] THREE Medical TIMES Branch DAILY CLONIDINE 2020-0 Yes [id number] TAKE 1 Un ally 0.2 mg 8-06 TABLET BY ity of tablet 00:00: [facility] Medical TIMES Branch DAILY CLONIDINE 2020-0 Yes [id number] TAKE 1 Un ally 0.2 mg 8-06 TABLET BY ity of tablet 00:00: [facility] THREE Medical TIMES Branch DAILY CLONIDINE 2020-0 Yes [id number] TAKE 1 Un ally 0.2 mg 8-06 TABLET BY ity of tablet 00:00: [facility] THREE Medical TIMES Branch DAILY CLONIDINE 2020-0 Yes [id number] TAKE 1 Un ally 0.2 mg 8-06 TABLET BY ity of tablet 00:00: [facility] Medical TIMES Branch DAILY CLONIDINE 2020-0 Yes [id number] TAKE 1 Un ally 0.2 mg 8-06 TABLET BY ity of tablet 00:00: [facility] Medical TIMES Branch DAILY CLONIDINE 2020-0 Yes Essential TAKE 1 U nivers 0.2 mg 8-06 hypertensio TABLET BY i ty of tablet 00:00: n [facility] Medical TIMES Branch DAILY mesalamine 2020-0 Yes [...] TK 1 T PO U nivers azole-trime - BID ity of thoprim 00:00: [place] 800-160 mg 00 Medical per tablet Branch sulfamethox 2020-0 Yes TK 1 T PO U nivers azole-trime - BID ity of thoprim 00:00: [place] 800-160 mg 00 Medical per tablet Branch sulfamethox 2020-0 Yes TK 1 T PO U nivers azole-trime - BID ity of thoprim 00:00: [place] 800-160 mg 00 Medical per tablet Branch sulfamethox 2020-0 Yes TK 1 T PO U nivers azole-trime - BID ity of thoprim 00:00: [place] 800-160 [...] TK 1 T PO U nivers azole-trime 05-08 BID ity of thoprim 00:00: [place] 800-160 mg 00 Medical per tablet Branch sulfamethox 2020-0 Yes TK 1 T PO U nivers azole-trime - BID ity of thoprim 00:00: [place] 800-160 mg 00 Medical per tablet Branch sulfamethox 2020-0 Yes TK 1 T PO U nivers azole-trime - BID ity of thoprim 00:00: [place] 800-160 mg 00 Medical per tablet Branch sulfamethox 2020-0 Yes TK 1 T PO U nivers azole-trime 05-08 BID ity of thoprim 00:00: [place] 800-160 mg 00 Medical per tablet Branch sulfamethox 2020-0 Yes TK 1 T PO U nivers azole-trime 05-08 BID ity of thoprim 00:00: [place] 800-160 mg 00 Medical per tablet Branch sulfamethox 2020-0 Yes TK 1 T PO U nivers azole-trime - BID ity of thoprim 00:00: [place] 800-160 mg 00 Medical per tablet Branch sulfamethox 2020-0 Yes TK 1 T PO U nivers azole-trime 05-08 BID ity of thoprim 00:00: [place] 800-160 mg 00 Medical per tablet Branch sulfamethox 2020-0 Yes TK 1 T PO U nivers azole-trime - BID ity of thoprim 00:00: [place] 800-160 mg 00 Medical per tablet Branch sulfamethox 2020-0 Yes TK 1 T PO U nivers azole-trime 7-08 BID ity of thoprim 00:00: [place] 800-160 mg 00 Medical per tablet Branch sulfamethox 2020-0 Yes TK 1 T PO U nivers azole-trime -08 BID ity of thoprim 00:00: [place] 800-160 [...] mcg capsule 05-06 BID ity of 00:00: [place] [facility] Branch AMITIZA 24 2020-0 Yes TK 1 C PO Un ally mcg capsule - BID ity of 00:00: [place] [facility] Branch AMITIZA 24 2020-0 Yes TK 1 C PO Un ally mcg capsule - BID ity of 00:00: [place] [facility] AMITIZA 24 2020-0 Yes TK 1 C PO Un ally mcg capsule - BID ity of 00:00: [place] 00 Medical Branch AMITIZA 24 2020-0 Yes TK 1 C PO Un ally mcg capsule - BID ity of 00:00: [place] [facility] AMITIZA 24 2020-0 Yes TK 1 C PO Un ally mcg capsule - BID ity of 00:00: [place] 00 Medical Branch AMITIZA 24 2020-0 Yes TK 1 C PO Un ally mcg capsule - BID ity of 00:00: [place] [facility] AMITIZA 24 2020-0 Yes TK 1 C PO Un ally mcg capsule 7- BID ity of 00:00: [place] [facility] AMITIZA 24 2020-0 Yes TK 1 C PO Un ally mcg capsule - BID ity of 00:00: [place] 00 Medical Branch AMITIZA 24 2020-0 Yes TK 1 C PO Un ally mcg capsule 7-06 BID ity of 00:00: [place] [facility] Branch AMITIZA 24 2020-0 Yes TK 1 C PO Un ally mcg capsule 05-06 BID ity of 00:00: [place] [facility] AMITIZA 24 2020-0 Yes TK 1 C PO Un ally mcg capsule 05-06 BID ity of 00:00: [place] [facility] AMITIZA 24 2020-0 Yes TK 1 C PO Un ally mcg capsule 05-06 BID ity of 00:00: [place] [facility] AMITIZA 24 2019-0 Yes TK 1 C PO Un ally mcg capsule 05-06 BID ity of 00:00: [place] [facility] AMITIZA 24 2020-0 Yes TK 1 C PO Un ally mcg capsule 05-06 BID ity of 00:00: [place] [facility] AMITIZA 24 2019-0 Yes TK 1 C PO Un ally mcg capsule 05-06 BID ity of 00:00: [place] [facility] AMITIZA 24 2019-0 Yes TK 1 C PO Un ally mcg capsule 05-06 BID ity of 00:00: [place] [facility] AMITIZA 24 2019-0 Yes TK 1 C PO Un ally mcg capsule 05-06 BID ity of 00:00: [place] [facility] AMITIZA 24 2019-0 Yes TK 1 C PO Un ally mcg capsule 05-06 BID ity of 00:00: [place] [facility] AMITIZA 24 2019-0 Yes TK 1 C PO Un ally mcg capsule 05-06 BID ity of 00:00: [place] [facility] AMITIZA 24 2020-0 Yes TK 1 C PO Un ally mcg capsule 05-06 BID ity of 00:00: [place] [facility] AMITIZA 24 2020-0 Yes TK 1 C PO Un ally mcg capsule 05-06 BID ity of 00:00: [place] [facility] AMITIZA 24 2020-0 Yes TK 1 C PO Un ally mcg capsule - BID ity of 00:00: [place] [facility] AMITIZA 24 2020-0 Yes TK 1 C PO Un ally mcg capsule 05-06 BID ity of 00:00: [place] 00 Medical Branch AMITIZA 24 2020-0 Yes TK 1 C PO Un ally mcg capsule 05-06 BID ity of 00:00: [place] [facility] Branch AMITIZA 24 2020-0 Yes TK 1 C PO Un ally mcg capsule 7-06 BID ity of 00:00: [place] 00 Medical Branch AMITIZA 24 2020-0 Yes TK 1 C PO Un ally mcg capsule 7-06 BID ity of 00:00: [place] 00 Medical Branch AMITIZA 24 2020-0 Yes TK 1 C PO Un ally mcg capsule 7-06 BID ity of 00:00: [place] 00 Medical Branch AMITIZA 24 2020-0 Yes TK 1 C PO Un ally mcg capsule 7-06 BID ity of 00:00: [place] 00 Medical [...] Univers mg tablet 5-14 ity of 00:00: 00 Medical Branch XIFAXAN 550 2020-0 Yes as needed. Univers mg tablet 5-14 ity of 00:00: 00 Medical Branch XIFAXAN 550 2020-0 Yes as needed. Univers mg tablet 5-14 ity of 00:00: 00 Medical Branch XIFAXAN 550 2020-0 Yes as needed. Univers mg tablet 5-14 ity of 00:00: [place] 00 Medical Branch XIFAXAN 550 2020-0 Yes as needed. Univers mg tablet 5-14 ity of 00:00: 00 Medical Branch XIFAXAN 550 2020-0 Yes as needed. Univers mg tablet 5-14 ity of 00:00: [place] [facility] XIFAXAN 550 2020-0 Yes as needed. Univers mg tablet 5-14 ity of 00:00: [place] [facility] XIFAXAN 550 2020-0 Yes as needed. Univers mg tablet 5-14 ity of 00:00: [place] [facility] XIFAXAN 550 2020-0 Yes as needed. Univers mg tablet 5-14 ity of 00:00: [place] [facility] XIFAXAN 550 2020-0 Yes as needed. Univers mg tablet 5-14 ity of 00:00: [place] 00 Medical Branch XIFAXAN 550 2020-0 Yes as needed. Univers mg tablet 5-14 ity of 00:00: [place] [facility] XIFAXAN 550 2020-0 Yes as needed. Univers mg tablet 5-14 ity of 00:00: [place] [facility] XIFAXAN 550 2020-0 Yes as needed. Univers mg tablet 5-14 ity of 00:00: [place] 00 Medical Branch XIFAXAN 550 2020-0 Yes as needed. Univers mg tablet 5-14 ity of 00:00: [place] 00 Medical Branch XIFAXAN 550 2020-0 Yes Univer s mg tablet 5-14 ity of 00:00: [place] 00 [facility] Branch insulin 2020-0 Yes Uncontrolle Take 50 [...] tablet 00:00: mouth (two) Medical times Branch daily. pantoprazol 2018-11 Yes 40mg Take 1 Univ ers e 40 mg EC 1-21 tablet by ity of tablet 00:00: mouth (two) Medical times Branch daily. pantoprazol 2018-11 Yes 40mg Take 1 [facility] e 40 mg EC 1-21 tablet by ity of tablet 00:00: mouth 2 (two) Medical times Branch daily. pantoprazol 2018-11 Yes 40mg Take 1 [facility] 40 mg EC 1-21 tablet by ity of tablet 00:00: mouth (two) Medical times Branch daily. pantoprazol 2018-11 Yes 40mg Take 1 [facility] 40 mg EC 1-21 tablet by ity of tablet 00:00: mouth (two) Medical times Branch daily. pantoprazol 2018-11 Yes 40mg Take 1 [facility] 40 mg EC 1-21 tablet by ity of tablet 00:00: mouth (two) Medical times Branch daily. pantoprazol 2018-11 Yes 40mg Take 1 [facility] 40 mg EC 1-21 tablet by ity of tablet 00:00: mouth (two) Medical times Branch daily. pantoprazol 2018-11 Yes 40mg Take 1 [facility] 40 mg EC 1-21 tablet by ity of tablet 00:00: mouth (two) Medical times Branch daily. pantoprazol 2018-11 Yes 40mg Take 1 [facility] 40 mg EC 1-21 tablet by ity of tablet 00:00: mouth (two) Medical times Branch daily. pantoprazol 2018-11 Yes 40mg Take 1 [facility] 40 mg EC 1-21 tablet by ity of tablet 00:00: mouth (two) Medical times Branch daily. pantoprazol 2018-11 Yes 40mg Take 1 [facility] 40 mg EC 1-21 tablet by ity of tablet 00:00: mouth (two) Medical times Branch daily. pantoprazol 2018-11 [...] mouth 2 (two) Medical times Branch daily. allopurinol Yes 100mg Take 100 U nivers (ZYLOPRIM) 8-28 mg by ity of 100 mg 14:53: mouth [place] tablet 14 daily. Medical Branch DULoxetine Yes 30mg Take 30 mg U nivers (CYMBALTA) 8-28 by mouth ity o f 60 mg 14:53: daily. [place] capsule 14 Medical Branch ALPRAZolam 2018- Yes 2mg Take 2 mg Un ally (XANAX) 8-28 by mouth ity of 0.25 mg 14:53: every 6 [place] tablet 14 (six) Medical hours as Branch needed. fluticasone 2018- Yes 1{inhal Inhale 1 Univers -vilanterol 8-28 [...] mg 09:53: mouth [place] tablet 14 daily. [facility] Branch ALPRAZolam 2019-0 Yes 2mg Take 2 mg Un ally (XANAX) 8-28 by mouth ity of 0.25 mg 09:53: every 6 [place] tablet 14 (six) Medical hours as Branch needed. allopurinol 2019-0 Yes 100mg Take 100 U nivers (ZYLOPRIM) 8-28 mg by ity of 100 mg 09:53: mouth [place] tablet 14 daily. [facility] Branch ALPRAZolam 2019-0 Yes 2mg Take [...] mg 09:53: mouth [place] tablet 14 daily. [facility] Branch ALPRAZolam 2019-0 Yes 2mg Take 2 mg Un ally (XANAX) 8-28 by mouth ity of 0.25 mg 09:53: every 6 [place] tablet 14 (six) Medical hours as Branch needed. allopurinol 2019-0 Yes 100mg Take 100 U nivers (ZYLOPRIM) 8-28 mg by ity of 100 mg 09:53: mouth [place] tablet 14 daily. [facility] Branch ALPRAZolam 2019-0 Yes 2mg Take 2 mg Un ally (XANAX) 8-28 by mouth ity of 0.25 mg 09:53: every 6 [place] tablet 14 (six) Medical hours as Branch needed. allopurinol 2019-0 Yes 100mg Take 100 [facility] nivers (ZYLOPRIM) 8-28 mg by ity of 100 mg 09:53: mouth [place] tablet 14 daily. [facility] Branch ALPRAZolam 2019-0 Yes 2mg Take 2 mg Un ally (XANAX) 8-28 by mouth ity of 0.25 mg 09:53: every 6 [place] tablet 14 (six) Medical hours as Branch needed. allopurinol 2019-0 Yes 100mg Take 100 U nivers (ZYLOPRIM) 8-28 mg by ity of 100 mg 09:53: mouth [place] tablet 14 daily. [facility] Branch ALPRAZolam 2019-0 Yes 2mg Take [...] times Branch per tablet daily. atorvastati Yes [id number] 40mg Take 1 [facility] n 40 mg 5-28 tablet by ity of tablet 00:00: mouth [place] 00 every Medical evening. Branch atorvastati Yes [id number] 40mg Take 1 [facility] n 40 mg 5-28 tablet by ity of tablet 00:00: mouth [place] 00 every Medical evening. Branch atorvastati Yes [id number] 40mg Take 1 [facility] n 40 mg 5-28 tablet by ity of tablet 00:00: mouth [place] 00 every Medical evening. Branch atorvastati Yes [id number] 40mg Take 1 [facility] n 40 mg 5-28 tablet by ity of tablet 00:00: mouth [place] 00 every Medical evening. [place] atorvastati Yes [id number] 40mg Take 1 [facility] n 40 mg 5-28 tablet by ity of tablet 00:00: mouth [place] 00 every Medical evening. [place] atorvastati Yes [id number] 40mg Take 1 [facility] n 40 mg 5-28 tablet by ity of tablet 00:00: mouth [place] 00 every Medical evening. [place] atorvastati Yes [id number] 40mg Take 1 [facility] n 40 mg 5-28 tablet by ity of tablet 00:00: mouth [place] 00 every Medical evening. [place] atorvasta Yes [id number] 40mg Take 1 [facility] n 40 mg 5-28 tablet by ity of tablet 00:00: mouth [place] 00 every Medical evening. [place] atorvasta Yes [id number] 40mg Take 1 [facility] n 40 mg 5-28 tablet by ity of tablet 00:00: mouth [place] 00 every Medical evening. [place] atorvasta Yes [id number] 40mg Take 1 [facility] n 40 mg 5-28 tablet by ity of tablet 00:00: mouth [place] 00 every Medical evening. [place] atorvasta Yes [id number] 40mg Take 1 [facility] n 40 mg 5-28 tablet by ity of tablet 00:00: mouth [place] 00 every Medical evening. [place] atorvastati Yes [id number] 40mg Take 1 [facility] n 40 mg 5-28 tablet by ity of tablet 00:00: mouth [place] 00 every Medical evening. [place] atorvastati Yes [id number] 40mg Take 1 [facility] n 40 mg 5-28 tablet by ity of tablet 00:00: mouth [place] 00 every Medical evening. [place] atorvastati Yes [id number] 40mg Take 1 [facility] n 40 mg 5-28 tablet by ity of tablet 00:00: mouth [place] 00 every Medical evening. [place] atorvastati Yes [id number] 40mg Take 1 [facility] n 40 mg 5-28 tablet by ity of tablet 00:00: mouth [place] 00 every Medical evening. [place] atorvastati Yes [id number] 40mg Take 1 [facility] n 40 mg 5-28 tablet by ity of tablet 00:00: mouth [place] 00 every Medical evening. [place] atorvasta Yes [id number] 40mg Take 1 [facility] n 40 mg 5-28 tablet by ity of tablet 00:00: mouth [place] 00 every Medical evening. [place] atorvasta Yes [id number] 40mg Take 1 [facility] n 40 mg 5-28 tablet by ity of tablet 00:00: mouth [place] 00 every Medical evening. [place] atorvasta Yes [id number] 40mg Take 1 [facility] n 40 mg 5-28 tablet by ity of tablet 00:00: mouth [place] 00 every Medical evening. [place] atorvasta Yes [id number] 40mg Take 1 [facility] n 40 mg 5-28 tablet by ity of tablet 00:00: mouth [place] 00 every Medical evening. [place] atorvasta Yes [id number] 40mg Take 1 [facility] n 40 mg 5-28 tablet by ity of tablet 00:00: mouth [place] 00 every Medical evening. [place] atorvasta Yes [id number] 40mg Take 1 [facility] n 40 mg 5-28 tablet by ity of tablet 00:00: mouth [place] 00 every Medical evening. [place] atorvasta Yes [id number] 40mg Take 1 [facility] n 40 mg 5-28 tablet by ity of tablet 00:00: mouth [place] 00 every Medical evening. [place] atorvasta Yes [id number] 40mg Take 1 [facility] n 40 mg 5-28 tablet by ity of tablet 00:00: mouth [place] 00 every Medical evening. [place] atorvasta Yes [id number] 40mg Take 1 [facility] n 40 mg 5-28 tablet by ity of tablet 00:00: mouth [place] 00 every Medical evening. [place] atorvasta Yes [id number] 40mg Take 1 [facility] n 40 mg 5-28 tablet by ity of tablet 00:00: mouth [place] 00 every Medical evening. [place] atorvastati Yes [id number] 40mg Take 1 [facility] n 40 mg 5-28 tablet by ity of tablet 00:00: mouth [place] 00 every Medical evening. [place] atorvasta Yes [id number] 40mg Take 1 [facility] n 40 mg 5-28 tablet by ity of tablet 00:00: mouth [place] 00 every Medical evening. Branch atorvastati 2019-0 Yes Hyperlipide 40mg Take 1 Univers n [...] tablet (twelve) Branch hours. Cholecalcif 2017-11 Yes [id number] Take 1 Un ally alayna, 0-01 capsule by ity of Vitamin D3, 00:00: mouth [place] 50,000 unit 00 weekly. Medic al capsule Branch Cholecalcif 2017-11 Yes [id number] Take 1 Un ally alayna, 0-01 capsule by ity of Vitamin D3, 00:00: mouth [place] 50,000 unit 00 weekly. Medic al capsule Branch Cholecalcif 2017-11 Yes [id number] Take 1 Un ally alayna, 0-01 capsule by ity of Vitamin D3, 00:00: mouth [place] 50,000 unit 00 weekly. Medic al capsule Branch Cholecalcif 2017-11 Yes [id number] Take 1 Un ally alayna, 0-01 capsule by ity of Vitamin D3, 00:00: mouth [place] 50,000 unit 00 weekly. Medic al capsule Branch Cholecalcif 2017-11 Yes [id number] Take 1 Un ally alayna, 0-01 capsule by ity of Vitamin D3, 00:00: mouth [place] 50,000 unit 00 weekly. Medic al capsule Branch Cholecalcif 2017-11 Yes [id number] Take 1 Un ally alay[place], 0-01 capsule by ity of Vitamin D3, 00:00: mouth [place] 50,000 unit 00 weekly. Medic al capsule Branch Cholecalcif 2017-11 Yes [id number] Take 1 Un ally alay[place], 0-01 capsule by ity of Vitamin D3, 00:00: mouth [place] 50,000 unit 00 weekly. Medic al capsule Branch Cholecalcif 2017-11 Yes [id number] Take 1 Un ally alay[place], 0-01 capsule by ity of Vitamin D3, 00:00: mouth [place] 50,000 unit 00 weekly. Medic al capsule Branch Cholecalcif 2017-11 Yes [id number] Take 1 Un ally alay[place], 0-01 capsule by ity of Vitamin D3, 00:00: mouth [place] 50,000 unit 00 weekly. Medic al capsule Branch Cholecalcif 2017-11 Yes [id number] Take 1 Un ally alay[place], 0-01 capsule by ity of Vitamin D3, 00:00: mouth [place] 50,000 unit 00 weekly. Medic al capsule Branch Cholecalcif 2017-11 Yes [id number] Take 1 Un ally alay[place], 0-01 capsule by ity of Vitamin D3, 00:00: mouth [place] 50,000 unit 00 weekly. Medic al capsule Branch Cholecalcif 2017-11 Yes [id number] Take 1 Un ally alay[place], 0-01 capsule by ity of Vitamin D3, 00:00: mouth [place] 50,000 unit 00 weekly. Medic al capsule Branch Cholecalcif 2017-11 Yes [id number] Take 1 Un ally alay[place], 0-01 capsule by ity of Vitamin D3, 00:00: mouth [place] 50,000 unit 00 weekly. Medic al capsule Branch Cholecalcif 2017-11 Yes [id number] Take 1 Un ally alay[place], 0-01 capsule by ity of Vitamin D3, 00:00: mouth [place] 50,000 unit 00 weekly. Medic al capsule Branch Cholecalcif 2017-11 Yes [id number] Take 1 Un ally alay[place], 0-01 capsule by ity of Vitamin D3, 00:00: mouth [place] 50,000 unit 00 weekly. Medic al capsule Branch Cholecalcif 2017-11 Yes [id number] Take 1 Un ally alay[place], 0-01 capsule by ity of Vitamin D3, 00:00: mouth [place] 50,000 unit 00 weekly. Medic al capsule Branch Cholecalcif 2017-11 Yes [id number] Take 1 Un ally alay[place], 0-01 capsule by ity of Vitamin D3, 00:00: mouth [place] 50,000 unit 00 weekly. Medic al capsule Branch Cholecalcif 2017-11 Yes [id number] Take 1 Un ally alay[place], 0-01 capsule by ity of Vitamin D3, 00:00: mouth [place] 50,000 unit 00 weekly. Medic al capsule Branch Cholecalcif 2017-11 Yes [id number] Take 1 Un ally alay[place], 0-01 capsule by ity of Vitamin D3, 00:00: mouth [place] 50,000 unit 00 weekly. Medic al capsule Branch Cholecalcif 2017-11 Yes [id number] Take 1 Un ally alay[place], 0-01 capsule by ity of Vitamin D3, 00:00: mouth [place] 50,000 unit 00 weekly. Medic al capsule Branch Cholecalcif 2017-11 Yes [id number] Take 1 Un ally alay[place], 0-01 capsule by ity of Vitamin D3, 00:00: mouth [place] 50,000 unit 00 weekly. Medic al capsule Branch Cholecalcif 2017-11 Yes [id number] Take 1 Un ally alay[place], 0-01 capsule by ity of Vitamin D3, 00:00: mouth [place] 50,000 unit 00 weekly. Medic al capsule Branch Cholecalcif 2017-11 Yes [id number] Take 1 Un ally alay[place], 0-01 capsule by ity of Vitamin D3, 00:00: mouth [place] 50,000 unit 00 weekly. Medic al capsule Branch Cholecalcif 2017-11 Yes [id number] Take 1 Un ally alay[place], 0-01 capsule by ity of Vitamin D3, 00:00: mouth [place] 50,000 unit 00 weekly. Medic al capsule Branch Cholecalcif 2017-11 Yes [id number] Take 1 Un ally alay[place], 0-01 capsule by ity of Vitamin D3, 00:00: mouth [place] 50,000 unit 00 weekly. Medic al capsule Branch Cholecalcif 2017-11 Yes [id number] Take 1 Un ally alay[place], 0-01 capsule by ity of Vitamin D3, 00:00: mouth [place] 50,000 unit 00 weekly. Medic al capsule Branch Cholecalcif 2017-11 Yes [id number] Take 1 Un ally alay[place], 0-01 capsule by ity of Vitamin D3, 00:00: mouth [place] 50,000 unit 00 weekly. Medic al capsule Branch Cholecalcif 2017-11 Yes [id number] Take 1 Un ally alay[place], 0-01 capsule by ity of Vitamin D3, 00:00: mouth [place] 50,000 unit 00 weekly. Medic al capsule Branch Cholecalcif 2017-11 Yes [id number] Take 1 Un ally alayna, 0-01 capsule by ity of Vitamin D3, 00:00: mouth [place] 50,000 unit 00 weekly. Medic al capsule Branch Lactated 2017-0 No 1,000 mL, [place] radha Ringers IV 6- Rate: 40 l 1,000 mL 19:14: ml/hr, [place] 00 Infuse over: 25 hr, Route: IV, Dosing Weight 141.364 kg, Total Volume: 1,000, Start date: 04/04/18 14:14:00 CDT, Duration: 30 day, Stop date: 05/04/18 14:13:00 CDT, 2.56, m2 Lactated 2018-0 No 1,000 mL, [place] radha Ringers IV - Rate: 40 l 1,000 mL 19:14: ml/hr, [place] 00 Infuse over: 25 hr, Route: IV, Dosing Weight 141.364 kg, Total Volume: 1,000, Start date: 04/04/18 14:14:00 CDT, Duration: 30 day, Stop date: 05/04/18 14:13:00 CDT, 2.56, m2 Lactated 2018-0 No 1,000 mL, [place] radha Ringers IV 6- Rate: 40 l 1,000 mL 19:14: ml/hr, [place] 00 Infuse over: 25 hr, Route: IV, Dosing Weight 141.364 kg, Total Volume: 1,000, Start date: 04/04/18 14:14:00 CDT, Duration: 30 day, Stop date: 05/04/18 14:13:00 CDT, 2.56, m2 Lactated 2018-0 No 1,000 mL, [place] radha Ringers IV 6- Rate: 40 l 1,000 mL 19:14: ml/hr, [place] 00 Infuse over: 25 hr, Route: IV, Dosing Weight 141.364 kg, Total Volume: 1,000, Start date: 04/04/18 14:14:00 CDT, Duration: 30 day, Stop date: 05/04/18 14:13:00 CDT, 2.56, m2 Humulin 2018-0 Yes 60 unit, Memori a 70/30 5-15 SUB-Q, l 18:44: QPM, 0 [place] 00 Refill(s) Humulin 2018-0 Yes 60 unit, Memori a 70/30 5-15 SUB-Q, l 18:44: QPM, 0 [place] 00 Refill(s) Humulin 2018-0 Yes 60 unit, Memori a 70/30 5-15 SUB-Q, l 18:44: QPM, 0 [place] 00 Refill(s) Humulin 2018-0 Yes 60 unit, Memori a 70/30 5-15 SUB-Q, l 18:44: QPM, 0 [place] 00 Refill(s) Humulin 2018-0 Yes 70 unit, Memori a 70/30 5-15 SUB-Q, l 18:43: QAM, 0 [place] 00 Refill(s) Humulin 2018-0 Yes 70 unit, Memori a 70/30 5-15 SUB-Q, l 18:43: QAM, 0 [place] 00 Refill(s) Humulin 2018-0 Yes 70 unit, Memori a 70/30 5-15 SUB-Q, l 18:43: QAM, 0 [place] 00 Refill(s) Humulin 2018-0 Yes 70 unit, Memori a 70/30 5-15 SUB-Q, l 18:43: QAM, 0 [place] 00 Refill(s) albuterol 2015-11 Yes 2{puff} Inhale [...] Puffs ity of mcg/actuati 00:00: every 4 [place] as on inhaler 00 (four) Medical hours [...] = 1 Mem oria 2 MG Oral -07 tab, PO, l Tablet 16:37: TID, 0 [place] [Xanax] 00 Refill(s) Alprazolam Yes 2 mg = 1 [facility] 2 MG Oral -07 tab, PO, l Tablet 16:37: TID, 0 [place] [Xanax] 00 Refill(s) Alprazolam Yes 2 mg = 1 [facility]ria 2 MG Oral -07 tab, PO, l Tablet 16:37: TID, 0 [place] [Xanax] 00 Refill(s) Alprazolam Yes 2 mg = 1 Mem [facility]ria 2 MG Oral -07 tab, PO, l Tablet 16:37: TID, 0 [place] [Xanax] 00 Refill(s) Nitroglycer Yes 0.4 mg = 1 [facility] in 0.4 MG 1-07 tab, SL, l Sublingual 16:25: Q5Min, PRN [place] Tablet 00 Chest [Nitrostat] Pain, # 100 tab, 0 Refill(s) Nitroglycer Yes 0.4 mg = 1 [facility] in 0.4 MG 1-07 tab, SL, l Sublingual 16:25: Q5Min, PRN [place] Tablet 00 Chest [Nitrostat] Pain, # 100 tab, 0 Refill(s) Nitroglycer Yes 0.4 mg = 1 [facility] in 0.4 MG 1-07 tab, SL, l Sublingual 16:25: Q5Min, PRN [place] Tablet 00 Chest [Nitrostat] Pain, # 100 tab, 0 Refill(s) Nitroglycer Yes 0.4 mg = 1 [facility] in 0.4 MG 1-07 tab, SL, l Sublingual 16:25: Q5Min, PRN [place] Tablet 00 Chest [Nitrostat] Pain, # 100 tab, 0 Refill(s) Promethazin Yes 5 mL, PO, M emoria e VC with -07 PRN, 0 l Codeine 16:21: Refill(s) [place] nn Promethazin Yes 5 mL, PO, M emoria e VC with 11-07 PRN, 0 l Codeine 16:21: Refill(s) [place] nn Promethazin Yes 5 mL, PO, M emoria e VC with - PRN, 0 l Codeine 16:21: Refill(s) [place] nn Promethazin Yes 5 mL, PO, M emoria e VC with - PRN, 0 l Codeine 16:21: Refill(s) [place] nn 00 Acetaminoph Yes 1 tab, PO, Memoria en 325 MG / 11-07 BID, 0 l Hydrocodone 16:19: Refill(s) [place] Bitartrate 00 10 MG Oral Tablet [[place] 10/325] Acetaminoph Yes 1 tab, PO, Memoria en 325 MG / 11-07 BID, 0 l Hydrocodone 16:19: Refill(s) [place] Bitartrate 00 10 MG Oral Tablet [[place] 10/325] Acetaminoph Yes 1 tab, PO, Mem[facility] en 325 MG / 11-07 BID, 0 l Hydrocodone 16:19: Refill(s) [place] Bitartrate 00 10 MG Oral Tablet [[place] 10/325] Acetaminoph Yes 1 tab, PO, Memoria en 325 MG / 11-07 BID, 0 l Hydrocodone 16:19: Refill(s) [place] Bitartrate 00 10 MG Oral Tablet [[place] 10/325] tizanidine Yes 4 mg = 1 Mem oria 4 MG Oral 11-07 cap, PO, l Capsule 16:18: BID, # 90 [place] nn [Zanaflex] 00 cap, 0 Refill(s) Zolpidem Yes 5 mg = 1 Memor ia tartrate 5 - tab, PO, l MG Oral 16:18: Bedtime, 0 [place] fl[place] Tablet 00 Refill(s) [Ambien] tizanidine 2016-0 Yes 4 mg = 1 Mem [facility]ria 4 MG Oral 1-07 cap, PO, l Capsule 16:18: BID, # 90 [place] nn [Zanaflex] 00 cap, 0 Refill(s) Zolpidem 2016-0 Yes 5 mg = 1 Memor ia tartrate 5 1-07 tab, PO, l MG Oral 16:18: Bedtime, 0 [place] Tablet 00 Refill(s) [Ambien] tizanidine 2016-0 Yes 4 mg = 1 Mem [facility] 4 MG Oral 1-07 cap, PO, l Capsule 16:18: BID, # 90 [place] nn [Zanaflex] 00 cap, 0 Refill(s) Zolpidem 2016-0 Yes 5 mg = 1 Memor ia tartrate 5 1-07 tab, PO, l MG Oral 16:18: Bedtime, 0 [place] Tablet 00 Refill(s) [Ambien] tizanidine 2016-0 Yes 4 mg = 1 Mem oria 4 MG Oral 1-07 cap, PO, l Capsule 16:18: BID, # 90 [place] [Zanaflex] 00 cap, 0 Refill(s) Zolpidem 2016-0 Yes 5 mg = 1 Memor ia tartrate 5 -07 tab, PO, l MG Oral 16:18: Bedtime, 0 [place] Tablet 00 Refill(s) [Ambien] cephalexin 2016-0 Yes 500 mg = 1 M emoria 500 mg oral 1-07 cap, PO, l capsule 16:17: BID, 0 [place] 00 Refill(s) cephalexin 2016-0 Yes 500 mg = 1 M emoria 500 mg oral 1-07 cap, PO, l capsule 16:17: BID, 0 [place] 00 Refill(s) cephalexin 2016-0 Yes 500 mg = 1 M emoria 500 mg oral 1-07 cap, PO, l capsule 16:17: BID, 0 [place] 00 Refill(s) cephalexin 2016-0 Yes 500 mg = 1 M emoria 500 mg oral 1-07 cap, PO, l capsule 16:17: BID, 0 [place] 00 Refill(s) duloxetine 2016-0 Yes 60 mg = 1 Me moria 60 MG 1-07 cap, PO, l Enteric 16:16: Daily, 0 [place] 00 Refill(s) Capsule [Cymbalta] atorvastati Yes 40 mg = 1 M emoria n 40 MG 1-07 tab, PO, l Oral Tablet 16:16: Bedtime, 0 [place] [Lipitor] 00 Refill(s) duloxetine Yes 60 mg = 1 Me mor[place] 60 MG 1-07 cap, PO, l Enteric 16:16: Daily, 0 [place] 00 Refill(s) Capsule [Cymbalta] atorvastati Yes 40 mg = 1 M emoria n 40 MG 1-07 tab, PO, l Oral Tablet 16:16: Bedtime, 0 [place] [Lipitor] 00 Refill(s) duloxetine Yes 60 mg = 1 Me mor[facility] 60 MG 1-07 cap, PO, l Enteric 16:16: Daily, 0 [place] 00 Refill(s) Capsule [Cymbalta] atorvastati Yes 40 mg = 1 M emoria n 40 MG 1-07 tab, PO, l Oral Tablet 16:16: Bedtime, 0 [place] [Lipitor] 00 Refill(s) duloxetine Yes 60 mg = 1 Me mor[facility] 60 MG 1-07 cap, PO, l Enteric 16:16: Daily, 0 [place] 00 Refill(s) Capsule [Cymbalta] atorvastati Yes 40 mg = 1 M emoria n 40 MG 1-07 tab, PO, l Oral Tablet 16:16: Bedtime, 0 [place] [Lipitor] 00 Refill(s) promethazin Yes 25 mg = 1 M emoria e 25 mg -07 tab, PO, l oral tablet 16:15: PRN, 0 [place] 00 Refill(s) sucralfate Yes 1 gm = 1 Mem oria 1 g oral -07 tab, PO, l tablet 16:15: QID-Before [place] nn 00 Meals, 0 Refill(s) promethazin Yes 25 mg = 1 M emoria e 25 mg 1-07 tab, PO, l oral tablet 16:15: PRN, 0 [place] 00 Refill(s) sucralfate 2016-0 Yes 1 gm = 1 [facility] 1 g oral 1-07 tab, PO, l tablet 16:15: QID-Before [place] nn 00 Meals, 0 Refill(s) promethazin [id number] Yes 25 mg = 1 M emoria e 25 mg 1-07 tab, PO, l oral tablet 16:15: PRN, 0 [place] 00 Refill(s) sucralfate 0 Yes 1 gm = 1 [facility] 1 g oral 1-07 tab, PO, l tablet 16:15: QID-Before [place] nn 00 Meals, 0 Refill(s) promethazin 2016 Yes 25 mg = 1 M emoria e 25 mg 1-07 tab, PO, l oral tablet 16:15: PRN, 0 [place] 00 Refill(s) sucralfate 0 Yes 1 gm = 1 Mem [facility] 1 g oral 1-07 tab, PO, l tablet 16:15: QID-Before [place] nn Meals, 0 Refill(s) Colchicine Yes 0.6 mg = 1 M emoria 0.6 MG Oral 1-07 tab, PO, l Tablet 16:14: PRN, 0 [place] [Colcrys] 00 Refill(s) Colchicine 2015-0 Yes 0.6 mg = 1 M emoria 0.6 MG Oral 1-07 tab, PO, l Tablet 16:14: PRN, 0 [place] [Colcrys] 00 Refill(s) Colchicine Yes 0.6 mg = 1 M emoria 0.6 MG Oral 1-07 tab, PO, l Tablet 16:14: PRN, 0 [place] [Colcrys] 00 Refill(s) Colchicine [id number] Yes 0.6 mg = 1 M emoria 0.6 MG Oral 1-07 tab, PO, l Tablet 16:14: PRN, 0 [place] [Colcrys] 00 Refill(s) allopurinol Yes 300 mg = 1 [facility] 300 mg oral 1-07 tab, PO, l tablet 16:13: Daily, 0 [place] 00 Refill(s) allopurinol Yes 300 mg = 1 [facility] 300 mg oral 1-07 tab, PO, l tablet 16:13: Daily, 0 [place] 00 Refill(s) allopurinol Yes 300 mg = 1 [facility] 300 mg oral -07 tab, PO, l tablet 16:13: Daily, 0 [place] 00 Refill(s) allopurinol Yes 300 mg = 1 [facility] 300 mg oral -07 tab, PO, l tablet 16:13: Daily, 0 [place] 00 Refill(s) Unknown Yes Refill(s) [facility] Home -07 0 l Medication 16:12: [place] Unknown Yes Refill(s) [facility] Home 07 0 l Medication 16:12: [place] Unknown Yes Refill(s) [facility] Home 11-07 0 l Medication 16:12: [place] Unknown Yes Refill(s) [facility] Home 07 0 l Medication 16:12: [place] pantoprazol Yes 40 mg = 1 M emoria e 40 MG 1-07 tab, PO, l Enteric 16:11: Daily, 0 [place] 00 Refill(s) Tablet [Protonix] pantoprazol Yes 40 mg = 1 M emoria e 40 MG 1-07 tab, PO, l Enteric 16:11: Daily, 0 [place] 00 Refill(s) Tablet [Protonix] pantoprazol Yes 40 mg = 1 M emoria e 40 MG 1-07 tab, PO, l Enteric 16:11: Daily, 0 [place] 00 Refill(s) Tablet [Protonix] pantoprazol Yes 40 mg = 1 M emoria e 40 MG 1-07 tab, PO, l Enteric 16:11: Daily, 0 [place] 00 Refill(s) Tablet [Protonix] Hydralazine Yes 50 mg = 1 M emoria Hydrochlori 1-07 tab, PO, l de 50 MG 16:10: TID, 0 [place] Oral Tablet 00 Refill(s) Hydralazine Yes 50 mg = 1 M [facility] Hydrochlori 1-07 tab, PO, l de 50 MG 16:10: TID, 0 [place] Oral Tablet 00 Refill(s) Hydralazine Yes 50 mg = 1 M [facility] Hydrochlori -07 tab, PO, l de 50 MG 16:10: TID, 0 [place] Oral Tablet 00 Refill(s) Hydralazine 2016 Yes 50 mg = 1 M emoria Hydrochlori -07 tab, PO, l de 50 MG 16:10: TID, 0 [place] Oral Tablet 00 Refill(s) lisinopril Yes 10 mg = 1 Me moria 10 mg oral -07 tab, PO, l tablet 16:09: BID, 0 [place] 00 Refill(s) lisinopril 0 Yes 10 mg = 1 Me mor[facility] 10 mg oral -07 tab, PO, l tablet 16:09: BID, 0 [place] 00 Refill(s) lisinopril 0 Yes 10 mg = 1 Me [facility] 10 mg oral 11-07 tab, PO, l tablet 16:09: BID, 0 [place] 00 Refill(s) lisinopril Yes 10 mg = 1 [facility] 10 mg oral - tab, PO, l tablet 16:09: BID, 0 [place] 00 Refill(s) Amlodipine Yes 10 mg = 1 Me mor[facility] 10 MG Oral -07 tab, PO, l Tablet 16:08: Daily, 0 [place] [Norvasc] 00 Refill(s) Hydrochloro 0 Yes 25 mg, PO, Memoria thiazide 1-07 Daily, 0 l 16:08: Refill(s) [place] Amlodipine 0 Yes 10 mg = 1 Me moria 10 MG Oral -07 tab, PO, l Tablet 16:08: Daily, 0 [place] [Norvasc] 00 Refill(s) Hydrochloro 2016-0 Yes 25 mg, PO, Mem[facility] thiazide 1-07 Daily, 0 l 16:08: Refill(s) [place] Amlodipine 2015-0 Yes 10 mg = 1 Me moria 10 MG Oral -07 tab, PO, l Tablet 16:08: Daily, 0 [place] [Norvasc] 00 Refill(s) Hydrochloro 2016-0 Yes 25 mg, PO, [facility] thiazide 1-07 Daily, 0 l 16:08: Refill(s) [place] 00 Amlodipine 0 Yes 10 mg = 1 Me moria 10 MG Oral 1-07 tab, PO, l Tablet 16:08: Daily, 0 [place] [Norvasc] 00 Refill(s) Hydrochloro Yes 25 mg, PO, [facility] thiazide 11-07 Daily, 0 l 16:08: Refill(s) [place] 00 metoprolol Yes 100 mg = 1 M emoria tartrate 11-07 tab, PO, l 100 mg oral 16:07: BID, 0 [place] flak[place] tablet 00 Refill(s) metoprolol Yes 100 mg = 1 M em[facility] tartrate 11-07 tab, PO, l 100 mg oral 16:07: BID, 0 [place] fl[place] tablet 00 Refill(s) metoprolol Yes 100 mg = 1 M em[facility] tartrate 11-07 tab, PO, l 100 mg oral 16:07: BID, 0 [place] tablet 00 Refill(s) metoprolol Yes 100 mg = 1 M [facility] tartrate 11-07 tab, PO, l 100 mg oral 16:07: BID, 0 [place] tablet 00 Refill(s) albuterol albuterol No albuterol [facility] [...] DAILY TWICE DAILY clonidine clonidine No clonidine [facility] HCl 0.2 mg HCl 0.2 mg HCl 0.2 mg Family tablet TAKE tablet TAKE tablet Practic 1 TABLET BY 1 TABLET BY TAKE 1 e MOUTH THREE MOUTH THREE TABLET BY TIMES DAILY TIMES DAILY MOUTH THREE TIMES DAILY colchicine colchicine No colchicine [facility] 0.6 mg 0.6 mg 0.6 mg [...] OR EAR PAIN diclofenac diclofenac No diclofenac [facility] 1 % topical 1 % topical [...] EVERY 8 HOURS gabapentin gabapentin No gabapentin [facility] 600 mg 600 mg 600 mg [...] DAILY WITH MEALS ipratropium ipratropium No ipratropiu [facility] bromide bromide m bromide Fami ly 0.02 % 0.02 % 0.02 % Practic solution solution solution e for for for inhalation inhalation inhalation lisinopril lisinopril No lisinopril [facility] 40 mg 40 [...] DAILY TABLET BY MOUTH DAILY nitroglycer nitroglycer nitroglygirish [facility] in 0.4 mg in 0.4 mg rin 0.4 mg [facility] [facility] sublingual sublingual sublingual Practic tablet tablet [...] FOR BEDTIME INSOMNIA INSOMNIA NEEDED FOR INSOMNIA Immunizations Ordered Filled Immunization Date Status Comments [facility] e Immunization Name Name SARS-COV-2 COVID-19 2021-07-11 Completed Unive rsity of MODERNA VACCINE 00:00:00 [place] [facility] SARS-COV-2 COVID-19 2021-07-11 Completed Unive rsity of MODERNA VACCINE 00:00:00 [place] [facility] ical Branch SARS-COV-2 COVID-19 2021-07-11 Completed Unive rsity of MODERNA VACCINE 00:00:00 [place] [facility] ical Branch SARS-COV-2 COVID-19 2021-07-11 Completed Unive rsity of MODERNA VACCINE 00:00:00 [place] [facility] ical Branch SARS-COV-2 COVID-19 2021-07-11 Completed Unive rsity of MODERNA VACCINE 00:00:00 [place] [facility] ical Branch SARS-COV-2 COVID-19 2021-07-11 Completed Unive rsity of MODERNA VACCINE 00:00:00 [place] [facility] ical Branch SARS-COV-2 COVID-19 2021-07-11 Completed Unive rsity of MODERNA VACCINE 00:00:00 [facility] ical Branch SARS-COV-2 COVID-19 2021-07-11 Completed Unive rsity of MODERNA VACCINE 00:00:00 [place] [facility] ical Branch SARS-COV-2 COVID-19 2021-07-11 Completed Unive rsity of MODERNA VACCINE 00:00:00 [facility] ical Branch SARS-COV-2 COVID-19 2021-07-11 Completed Unive rsity of MODERNA VACCINE 00:00:00 [place] [facility] ical Branch SARS-COV-2 COVID-19 2021-07-11 Completed Unive rsity of MODERNA VACCINE 00:00:00 [facility] ical Branch SARS-COV-2 COVID-19 2021-07-11 Completed Unive rsity of MODERNA 12+ YRS 00:00:00 [facility] ical VACCINE Branch SARS-COV-2 COVID-19 2021-07-11 Completed Unive rsity of MODERNA 12+ YRS 00:00:00 [place] [facility] VACCINE [facility] SARS-COV-2 COVID-19 2021-07-11 Completed Unive rsity of MODERNA 12+ YRS 00:00:00 [place] [facility] VACCINE [facility] SARS-COV-2 COVID-19 2021-07-11 Completed Unive rsity of MODERNA 12+ YRS 00:00:00 [place] [facility] VACCINE [facility] SARS-COV-2 COVID-19 2021-07-11 Completed Unive rsity of MODERNA 12+ YRS 00:00:00 [place] [facility] VACCINE [facility] SARS-COV-2 COVID-19 2021-07-11 Completed Unive rsity of MODERNA 12+ YRS 00:00:00 [place] [facility] VACCINE [facility] SARS-COV-2 COVID-19 2021-07-11 Completed Unive rsity of MODERNA 12+ YRS 00:00:00 [place] [facility] VACCINE [facility] SARS-COV-2 COVID-19 2021-07-11 Completed Unive rsity of MODERNA 12+ YRS 00:00:00 [place] [facility] VACCINE [facility] SARS-COV-2 COVID-19 2021-07-11 Completed Unive rsity of MODERNA 12+ YRS 00:00:00 [place] [facility] VACCINE [facility] SARS-COV-2 COVID-19 2021-07-11 Completed Unive rsity of MODERNA 12+ YRS 00:00:00 [place] [facility] VACCINE [facility] SARS-COV-2 COVID-19 2021-07-11 Completed Unive rsity of MODERNA 12+ YRS 00:00:00 [place] [facility] VACCINE [facility] SARS-COV-2 COVID-19 2021-07-11 Completed Unive rsity of MODERNA 12+ YRS 00:00:00 [place] [facility] VACCINE [facility] SARS-COV-2 COVID-19 2021-07-11 Completed Unive rsity of MODERNA 12+ YRS 00:00:00 [place] [facility] VACCINE [facility] SARS-COV-2 COVID-19 2021-07-11 Completed Unive rsity of MODERNA 12+ YRS 00:00:00 [place] [facility] VACCINE [facility] SARS-COV-2 COVID-19 2021-07-11 Completed Unive rsity of MODERNA 12+ YRS 00:00:00 [place] [facility] VACCINE [facility] SARS-COV-2 COVID-19 2021-07-11 Completed Unive rsity of MODERNA 12+ YRS 00:00:00 [place] [facility] VACCINE [facility] SARS-COV-2 COVID-19 2021-07-11 Completed Unive rsity of MODERNA 12+ YRS 00:00:00 [place] [facility] VACCINE [facility] SARS-COV-2 COVID-19 2021-01-01 Completed Unive rsity [...] COVID-19 2021-01-01 Completed Unive rsity of MODERNA 12+ YRS 00:00:00 [place] [facility] VACCINE [facility] SARS-COV-2 COVID-19 2021-01-01 Completed Unive rsity of MODERNA 12+ YRS 00:00:00 [place] [facility] VACCINE [facility] SARS-COV-2 COVID-19 2021-01-01 Completed Unive rsity of MODERNA 12+ YRS 00:00:00 [place] [facility] VACCINE [facility] SARS-COV-2 COVID-19 2021-01-01 Completed Unive rsity of MODERNA 12+ YRS 00:00:00 [place] [facility] VACCINE [facility] SARS-COV-2 COVID-19 2021-01-01 Completed Unive rsity of MODERNA 12+ YRS 00:00:00 [place] [facility] VACCINE [facility] SARS-COV-2 COVID-19 2021-01-01 Completed Unive rsity of MODERNA 12+ YRS 00:00:00 [place] [facility] VACCINE [facility] SARS-COV-2 COVID-19 2021-01-01 Completed Unive rsity of MODERNA 12+ YRS 00:00:00 [place] [facility] VACCINE [facility] SARS-COV-2 COVID-19 2021-01-01 Completed Unive rsity of MODERNA 12+ YRS 00:00:00 [place] [facility] VACCINE [facility] SARS-COV-2 COVID-19 2021-01-01 Completed Unive rsity of MODERNA 12+ YRS 00:00:00 [place] [facility] VACCINE [facility] SARS-COV-2 COVID-19 2021-01-01 Completed Unive rsity of MODERNA 12+ YRS 00:00:00 [place] [facility] VACCINE [facility] SARS-COV-2 COVID-19 2021-01-01 Completed Unive rsity of MODERNA 12+ YRS 00:00:00 [place] [facility] VACCINE [facility] SARS-COV-2 COVID-19 2021-01-01 Completed Unive rsity of MODERNA 12+ YRS 00:00:00 [place] [facility] VACCINE [facility] SARS-COV-2 COVID-19 2021-01-01 Completed Unive rsity of MODERNA 12+ YRS 00:00:00 [place] [facility] VACCINE [facility] SARS-COV-2 COVID-19 2021-01-01 Completed Unive rsity of MODERNA 12+ YRS 00:00:00 [place] [facility] VACCINE [facility] SARS-COV-2 COVID-19 2021-01-01 Completed Unive rsity of MODERNA 12+ YRS 00:00:00 [place] [facility] VACCINE [facility] SARS-COV-2 COVID-19 2021-01-01 Completed Unive rsity of MODERNA 12+ YRS 00:00:00 [place] [facility] VACCINE [facility] SARS-COV-2 COVID-19 2021-01-01 Completed Unive rsity of MODERNA 12+ YRS 00:00:00 [place] [facility] VACCINE [facility] SARS-COV-2 COVID-19 2021-01-01 Completed Unive rsity [...] COVID-19 2020-12-03 Completed Unive rsity of MODERNA 12+ YRS 00:00:00 [place] [facility] VACCINE [facility] SARS-COV-2 COVID-19 2020-12-03 Completed Unive rsity of MODERNA 12+ YRS 00:00:00 [place] [facility] VACCINE [facility] SARS-COV-2 COVID-19 2020-12-03 Completed Unive rsity of MODERNA 12+ YRS 00:00:00 [place] [facility] VACCINE [facility] SARS-COV-2 COVID-19 2020-12-03 Completed Unive rsity of MODERNA 12+ YRS 00:00:00 [place] [facility] VACCINE [facility] SARS-COV-2 COVID-19 2020-12-03 Completed Unive rsity of MODERNA 12+ YRS 00:00:00 [place] [facility] VACCINE [facility] SARS-COV-2 COVID-19 2020-12-03 Completed Unive rsity of MODERNA 12+ YRS 00:00:00 [place] [facility] VACCINE [facility] SARS-COV-2 COVID-19 2020-12-03 Completed Unive rsity of MODERNA 12+ YRS 00:00:00 [place] [facility] VACCINE [facility] SARS-COV-2 COVID-19 2020-12-03 Completed Unive rsity of MODERNA 12+ YRS 00:00:00 [place] [facility] VACCINE [facility] SARS-COV-2 COVID-19 2020-12-03 Completed Unive rsity of MODERNA 12+ YRS 00:00:00 [place] [facility] VACCINE [facility] SARS-COV-2 COVID-19 2020-12-03 Completed Unive rsity of MODERNA 12+ YRS 00:00:00 [place] [facility] VACCINE [facility] SARS-COV-2 COVID-19 2020-12-03 Completed Unive rsity of MODERNA 12+ YRS 00:00:00 [place] [facility] VACCINE [facility] SARS-COV-2 COVID-19 2020-12-03 Completed Unive rsity of MODERNA 12+ YRS 00:00:00 [place] [facility] VACCINE [facility] SARS-COV-2 COVID-19 2020-12-03 Completed Unive rsity of MODERNA 12+ YRS 00:00:00 [place] [facility] VACCINE [facility] SARS-COV-2 COVID-19 2020-12-03 Completed Unive rsity of MODERNA 12+ YRS 00:00:00 [place] [facility] VACCINE [facility] SARS-COV-2 COVID-19 2020-12-03 Completed Unive rsity of MODERNA 12+ YRS 00:00:00 [place] [facility] VACCINE [facility] SARS-COV-2 COVID-19 2020-12-03 Completed Unive rsity of MODERNA 12+ YRS 00:00:00 [place] [facility] VACCINE [facility] SARS-COV-2 COVID-19 2020-12-03 Completed Unive rsity of MODERNA 12+ YRS 00:00:00 [facility] ical VACCINE Branch SARS-COV-2 COVID-19 2020-12-03 Completed Unive rsity of MODERNA VACCINE 00:00:00 [facility] ical Branch Influenza Virus 2020-11-13 Completed Universit y of Vaccine Quad .5 mL 00:00:00 [place] [facility] IM 6+ MO Branch Influenza Virus 2020-11-13 Completed Universit y of Vaccine Quad .5 mL 00:00:00 [place] [facility] IM 6+ MO [facility] Influenza Virus 2020-11-13 Completed Universit y of Vaccine Quad .5 mL 00:00:00 [place] [facility] IM 6+ MO [facility] Influenza Virus 2020-11-13 Completed Universit y of Vaccine Quad .5 mL 00:00:00 [place] [facility] IM 6+ MO [facility] Influenza Virus 2020-11-13 Completed Universit y of Vaccine Quad .5 mL 00:00:00 [place] [facility] IM 6+ MO [facility] Influenza Virus 2020-11-13 Completed Universit y of Vaccine Quad .5 mL 00:00:00 [place] [facility] IM 6+ MO Branch Influenza Virus 2020-11-13 Completed Universit y of Vaccine Quad .5 mL 00:00:00 [place] [facility] IM 6+ MO [facility] Influenza Virus 2020-11-13 Completed Universit y of Vaccine Quad .5 mL 00:00:00 [place] [facility] IM 6+ MO [facility] Influenza Virus 2020-11-13 Completed Universit y of Vaccine Quad .5 mL 00:00:00 [place] [facility] IM 6+ MO [facility] Influenza Virus 2020-11-13 Completed Universit y of Vaccine Quad .5 mL 00:00:00 [place] [facility] 6+ MO [facility] Influenza Virus 2020-11-13 Completed Universit y of Vaccine Quad .5 mL 00:00:00 [place] [facility] 6+ MO [facility] Influenza Virus 2020-11-13 Completed Universit y of Vaccine Quad .5 mL 00:00:00 [place] [facility] IM 6+ MO Branch Influenza Virus 2020-11-13 Completed Universit y of Vaccine Quad .5 mL 00:00:00 [place] [facility] 6+ MO [facility] Influenza Virus 2020-11-13 Completed Universit y of Vaccine Quad .5 mL 00:00:00 [place] [facility] 6+ MO Branch Influenza Virus 2020-11-13 Completed Universit y of Vaccine Quad .5 mL 00:00:00 [place] [facility] 6+ MO Branch Influenza Virus 2020-11-13 Completed Universit y of Vaccine Quad .5 mL 00:00:00 [place] [facility] 6+ MO [facility] Influenza Virus 2020-11-13 Completed Universit y of Vaccine Quad .5 mL 00:00:00 [place] [facility] IM 6+ MO Branch Influenza Virus 2020-11-13 Completed Universit y of Vaccine Quad .5 mL 00:00:00 [place] [facility] IM 6+ MO Branch Influenza Virus 2020-11-13 Completed Universit y of Vaccine Quad .5 mL 00:00:00 [place] [facility] 6+ MO Branch Influenza Virus 2020-11-13 Completed [facility]it y of Vaccine Quad .5 mL 00:00:00 [place] [facility] IM 6+ MO Branch Influenza Virus 2020-11-13 Completed [facility]it y of Vaccine Quad .5 mL 00:00:00 [place] [facility] 6+ MO Branch Influenza Virus 2020-11-13 Completed [facility]it y of Vaccine Quad .5 mL 00:00:00 [place] [facility] IM 6+ MO Branch Influenza Virus 2020-11-13 Completed [facility]it y of Vaccine Quad .5 mL 00:00:00 [place] [facility] IM 6+ MO Branch Influenza Virus 2020-11-13 Completed Universit y of Vaccine Quad .5 mL 00:00:00 [place] [facility] IM 6+ MO Branch Influenza Virus 2020-11-13 Completed Universit y of Vaccine Quad .5 mL 00:00:00 [place] [facility] IM 6+ MO Branch Influenza Virus 2020-11-13 Completed Universit y of Vaccine Quad .5 mL 00:00:00 [place] [facility] IM 6+ MO Branch Influenza Virus 2020-11-13 Completed Universit y of Vaccine Quad .5 mL 00:00:00 [place] [facility] IM 6+ MO Branch Influenza Virus 2020-11-13 Completed [facility]it y of Vaccine Quad .5 mL 00:00:00 [place] [facility] IM 6+ MO Branch Influenza Virus 2020-11-13 Completed Universit y of Vaccine Quad .5 mL 00:00:00 [facility] IM 6+ MO Branch Vital Signs Vital Name Observation Time Observation Value Comments Source Systolic blood 2022-08-25 14:59:00 121 mm[Hg] Univer sity of pressure [facility] Diastolic blood 2022-08-25 14:59:00 75 mm[Hg] Unive rsity of pressure [facility] Heart rate 2022-08-25 14:59:00 108 /min [facility]i ty of [facility] Body temperature 2022-08-25 14:59:00 36.67 Pat Univ ersity of [facility] Body height 2022-08-25 14:59:00 160 cm [facility]i ty of [facility] Body weight 2022-08-25 14:59:00 146.512 kg [facility] BMI 2022-08-25 14:59:00 57.22 kg/m2 [facility] Oxygen saturation in 2022-08-25 14:59:00 96 /min [facility] blood by [facility] Pulse oximetry Branch Body temperature 2022-06-16 12:58:00 36.33 Pat [facility] Body height 2022-06-16 12:58:00 160 cm [facility] Body weight 2022-06-16 12:58:00 151.32 kg [facility] BMI 2022-06-16 12:58:00 59.09 kg/m2 [facility] Systolic blood 2022-03-18 14:25:00 120 mm[Hg] Univer sity of [facility] Diastolic blood 2022-03-18 14:25:00 70 mm[Hg] Unive rsity of pressure [facility] Heart rate 2022-03-18 14:25:00 78 /min [facility] Body height 2022-03-18 14:25:00 160 cm [facility] Body weight 2022-03-18 14:25:00 150.367 kg [facility] BMI 2022-03-18 14:25:00 58.72 kg/m2 [facility] Oxygen saturation in 2022-03-18 14:25:00 95 /min [facility] of Arterial blood by [facility] Pulse oximetry Branch HEIGHT 2022-01-09 09:38:00 160 [...] kg Systolic blood 2021-11-06 19:35:00 132 mm[Hg] [facility] pressure Medicine Diastolic blood 2021-11-06 19:35:00 69 mm[Hg] [facility] pressure Medicine Heart rate 2021-11-06 19:35:00 93 /min [facility] Body temperature 2021-11-06 19:35:00 36 Pat [facility] Respiratory rate 2021-11-06 19:35:00 18 /min [facility] Body height 2021-11-06 19:35:00 160 cm [facility] Body weight 2021-11-06 19:35:00 151.32 kg [facility] BMI 2021-11-06 19:35:00 59.09 kg/m2 [facility] BP Diastolic 2021-08-21 00:00:00 89 mm[Hg] [facility] Height 2021-08-21 00:00:00 63 [in_i] [facility] BMI (Body Mass 2021-08-21 00:00:00 58.1 kg/m2 [facility] BP Systolic 2021-08-21 00:00:00 131 mm[Hg] [facility] Body Weight 2021-08-21 00:00:00 328 [lb_av] [facility] Systolic blood 2022-01-09 13:53:00 157 mm[Hg] [facility] Diastolic blood 2022-01-09 13:53:00 89 mm[Hg] [facility] Heart rate 2022-01-09 13:53:00 80 /min [facility] Body temperature 2022-01-09 13:53:00 36.33 Pat [facility] Respiratory rate 2022-01-09 13:53:00 19 /min [facility] Oxygen saturation in 2022-01-09 13:53:00 93 /min [facility] Arterial blood by Medical Ce nter Pulse oximetry Body height 2022-01-09 09:38:00 160 cm [facility] Body weight 2022-01-09 09:38:00 151.501 kg [facility] BMI 2022-01-09 09:38:00 59.17 kg/m2 [facility] Systolic (mm Hg) 2018-04-04 19:53:00 [place] [facility] [place] Diastolic (mm Hg) 2018-04-04 19:53:00 Mem orial [place] Respitory Rate 2018-04-04 19:53:00 Memori al [place] Systolic (mm Hg) 2018-04-04 19:41:00 [place] [facility] [place] Diastolic (mm Hg) 2018-04-04 19:41:00 Mem orial [place] Respitory Rate 2018-04-04 19:41:00 Memori al [place] Systolic (mm Hg) 2018-04-04 18:06:00 [place] [facility] [place] Diastolic (mm Hg) 2018-04-04 18:06:00 Mem [facility]rial [place] Respitory Rate 2018-04-04 18:06:00 Memori al [place] Weight 2018-04-04 18:04:00 [facility] [place] BMI Calculated 2018-04-04 18:04:00 Memori al [place] Height 2018-03-30 16:54:00 160.02 cm [facility] [place] Respitory Rate 2018-03-21 22:06:00 Memori al [place] Systolic (mm Hg) 2018-03-21 22:06:00 [place] [facility] [place] Diastolic (mm Hg) 2018-03-21 22:06:00 Mem orial [place] Respitory Rate 2018-03-21 21:53:00 Memori al [place] Systolic (mm Hg) 2018-03-21 21:53:00 [place] radhal [place] Diastolic (mm Hg) 2018-03-21 21:53:00 Mem [facility]rial [place] Systolic (mm Hg) 2018-03-21 19:08:00 [place] [facility] [place] Diastolic (mm Hg) 2018-03-21 19:08:00 Mem [facility]rial [place] Respitory Rate 2018-03-21 19:08:00 Maynor Hernándezann Height 2018 18:32:00 160.02 cm Yossi Solomonann Weight 2018 18:32:00 Yossi Solomonann BMI Calculated 2018 18:32:00 Maynor Hernándezann Weight 2015-11-07 16:05:00 [facility] [place] BMI Calculated 2015-11-07 16:05:00 Maynor lopez [place] Height 2015-11-07 16:05:00 160.02 cm [facility] Procedures Procedure Date / Time Performing Clinician Source Performed CT HEAD WO CONTRAST 2022-08-28 14:23:13 Sonja Osorio [facility] POCT MOLECULAR FLU 2022-08-25 15:55:00 Sonja Osorio [facility] CBC W/AUTO DIFF WITH 2022-07-28 12:34:00 [facility] COMPREHENSIVE METABOLIC 2022-07-28 12:34:00 [facility] Medicine FOLATE 2022-07-28 12:34:00 [facility] HEMOGLOBIN A1C 2022-07-28 12:34:00 [facility] LIPID PANEL 2022-07-28 12:34:00 [facility] PROTIME \\T\\ PTT 2022-07-28 12:34:00 [facility] THYROID PROFILE (T3U - T4 2022-07-28 12:34:00 [facility] T7 - TSH) Medicine URINALYSIS, COMPLETE 2022-07-28 12:34:00 [facility]/REFLEX TO CULTURE Medicine VITAMIN A 2022-07-28 12:34:00 [facility] VITAMIN B1 2022-07-28 12:34:00 [facility] VITAMIN B12 2022-07-28 12:34:00 [facility] VITAMIN D 25 HYDROXY 2022-07-28 12:34:00 [facility] Medicine IRON+TIBC+%SAT 2022-07-28 12:34:00 [facility] FERRITIN 2022-07-28 12:34:00 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 [facility] AMB REF TO PHYSICAL MED 2022-07-08 12:26:14 [facility] REHAB [facility] AMB REF TO BARIATRIC 2022-06-16 08:27:29 [facility] POCT-GLUCOSE METER 2022-01-09 13:43:00 Charo Wise [facility] REPORT OF PROCEDURE - 2022-01-09 12:37:11 Charo Wise [facility] ENDOSCOPY URL Center REPORT OF PROCEDURE - 2022-01-09 12:36:24 Charo Wise [facility] ENDOSCOPY URL Center TISSUE EXAM 2022-01-09 11:31:00 Charo Wise [facility] ESOPHAGEAL BALLOON 2022-01-09 10:53:00 Charo Wise [facility] PROVOCATION STUDY Center COLONOSCOPY, WITH 2022-01-09 10:53:[address] [facility] POLYPECTOMY Center ESOPHAGOGASTRODUODENOSCOPY 2022-01-09 10:53:00 Charo Wise [facility] , WITH BIOPSY Center POCT-GLUCOSE METER 2022-01-09 09:59:00 Charo Wise [facility] SARS-COV2/RT-PCR ([facility] & 2022-01-09 07:55:00 BillieCharo kuhn [facility] REF LABS) [place] MANOMETRY, ANORECTAL 2021-12-04 09:24:00 Charo Wise [facility] PAIN MANAGEMENT AGREEMENT 2021-02-12 05:01:00 Doctor Unassigned, [facility] & INFORMED CONSENT [facility] Sleeve resection of 2017-09-01 00:00:00 [facility] [place] stomach Laparoscopic adjustable 2013-11-01 06:00:00 [place] [facility] [place] gastric banding<sup>1</sup> Removal of gastric band 2013-11-01 00:00:00 [place] [place] Abdominal hysterectomy 2011-11-01 00:00:00 [facility] [place] Laparoscopic adjustable 2010-11-01 00:00:00 [place] gastric banding Appendectomy 2009-11-01 00:00:00 [facility] pascal Cholecystectomy 2009-11-01 00:00:00 [facility] Her pascal Knee joint operation 2006-11-01 06:00:00 [facility] bonnie [place] Shoulder joint operations 2006-11-01 06:00:00 Ia berna Seay section 1984-11-01 00:00:00 [facility] rmann Knee Surgery [facility] Procedure on Shoulder [facility] Fa davida Practice Maintenance of Gastric [place] amily Band Practice Gallbladder Surgery [facility] Practice Appendectomy [facility] Plan of Care Planned Activity Planned Date Details Comments Source Future Scheduled 2032-01-[address] [facility] 00:[facility]:00 malignant neoplasm of [facility] Center colon (procedure) [code = 039751695] Future Scheduled 2032-01-[address] [facility] Test 00:00:00 malignant neoplasm of [facility] Center colon (procedure) [code = 181215137] Future Scheduled 2032-01-[address] [facility] Test 00:00:00 malignant neoplasm of Medica [facility] Center colon (procedure) [code = 399475940] Future Scheduled 2032-01-[address] [facility] Test 00:00:00 malignant neoplasm of Medica l Center colon (procedure) [code = 753567762] Future Scheduled 2022-08-31 Screening for [facility] Test 13:08:39 malignant neoplasm of of Med icine breast (procedure) [code = 254769019] Future Scheduled 2022-08-31 Pneumococcal Combined [facility] Test 13:08:39 (1 - PCV) [code = of Medicin e Pneumococcal Combined (1 - PCV)] Future Scheduled 2022-08-31 TETANUS SHOT (ADULT) [employer] Test 13:08:39 [code = TETANUS SHOT of Medi cine (ADULT)] Future Scheduled 2022-08-31 Diabetic foot [facility] Test 13:08:39 examination of Medicine (regime/therapy) [code = 009182308] Future Scheduled 2022-08-31 ANNUAL DIABETIC [facility] Test 13:08:39 RETINOPATHY SCREENING of Med icine [code = ANNUAL DIABETIC RETINOPATHY SCREENING] Future Scheduled 2022-08-31 Hepatitis C screening Ba [facility] Test 13:08:39 (procedure) [code = of Medic ine 271788620] Future Scheduled 2022-08-31 [facility] virus screening of Medicine (procedure) [code = 387134152] Future Scheduled 2022-08-31 Screening for [facility] Test 13:08:39 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) [code = 777297128] Future Scheduled 2022-08-31 [facility] 13:08:39 [code = MEDICARE AWV of Medi cine (Initial)] Future Scheduled 2022-08-31 ZOSTER VACCINE (1 of [facility] Test 13:08:39 2) [code = ZOSTER of Medicin e VACCINE (1 of 2)] Future Scheduled 2022-08-31 COVID-19 Vaccine (4 - Ba [facility] Test 13:08:39 Booster for Moderna of Medic ine series) [code = COVID-19 Vaccine (4 - Booster for Moderna series)] Future Scheduled 2022-08-31 FLU VACCINE > 6 MONTHS [facility] 13:08:39 [code = FLU VACCINE > of Med icine 6 MONTHS] Future Scheduled 2022-08-31 [facility] 13:08:39 [code = BMI FOLLOW UP of Med icine PLAN] Future Scheduled 2022-08-31 Screening for [facility] Test 13:08:39 malignant neoplasm of of Med icine colon (procedure) [code = 450252233] Future Scheduled 2022-08-11 Screening for [facility] Test 15:35:44 malignant neoplasm of of Med icine breast (procedure) [code = 699455118] Future Scheduled 2022-08-11 TETANUS SHOT (ADULT) [facility] Test 15:35:44 [code = TETANUS SHOT of Medi cine (ADULT)] Future Scheduled 2022-08-11 Diabetic foot [facility] Test 15:35:44 examination of Medicine (regime/therapy) [code = 398274514] Future Scheduled 2022-08-11 ANNUAL DIABETIC [facility] Test 15:35:44 RETINOPATHY SCREENING of Med icine [code = ANNUAL DIABETIC RETINOPATHY SCREENING] Future Scheduled 2022-08-11 Hepatitis C screening Ba [facility] Test 15:35:44 (procedure) [code = of Medic ine 959996516] Future Scheduled 2022-08-11 Human immunodeficiency B [facility] Test 15:35:44 virus screening of Medicine (procedure) [code = 117702006] Future Scheduled 2022-08-11 Screening for [facility] Test 15:35:44 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) [code = 025547073] Future Scheduled 2022-08-11 MEDICARE AWV (Initial) B [facility] Test 15:35:44 [code = MEDICARE AWV of Medi cine (Initial)] Future Scheduled 2022-08-11 ZOSTER VACCINE (1 of [facility] Test 15:35:44 2) [code = ZOSTER of Medicin e VACCINE (1 of 2)] Future Scheduled 2022-08-11 COVID-19 Vaccine (4 - Ba [facility] Test 15:35:44 Booster for Moderna of Medic ine series) [code = COVID-19 Vaccine (4 - Booster for Moderna series)] Future Scheduled 2022-08-11 FLU VACCINE > 6 MONTHS [facility] 15:35:44 [code = FLU VACCINE > of Med icine 6 MONTHS] Future Scheduled 2022-08-11 BMI FOLLOW UP PLAN [facility] r College Test 15:35:44 [code = BMI FOLLOW UP of Med icine PLAN] Future Scheduled 2022-08-11 Screening for [facility] Test 15:35:44 malignant neoplasm of of Med icine colon (procedure) [code = 624751033] Future Scheduled 2022-07-02 INFLUENZA VACCINE (#1) [facility] 00:[facility]00 [code = INFLUENZA Medical Ce nter VACCINE (#1)] Future Scheduled 2022-07-02 INFLUENZA VACCINE (#1) [facility] 00:00:00 [code = INFLUENZA Medical Ce nter VACCINE (#1)] Future Scheduled 2022-06-16 Screening for [facility] Test 07:59:04 malignant neoplasm of of Med icine breast (procedure) [code = 311991096] Future Scheduled 2022-06-16 TETANUS SHOT (ADULT) [employer] Test 07:59:04 [code = TETANUS SHOT of Medi cine (ADULT)] Future Scheduled 2022-06-16 BMI FOLLOW UP PLAN [employer] Test 07:59:04 [code = BMI FOLLOW UP of Med icine PLAN] Future Scheduled 2022-06-16 Hepatitis C screening [employer] Test 07:59:04 (procedure) [code = of Medic ine 112311171] Future Scheduled 2022-06-16 Human immunodeficiency [employer] Test 07:59:04 virus screening of Medicine (procedure) [code = 122085647] Future Scheduled 2022-06-16 Screening for [facility] Test 07:59:04 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) [code = 006370836] Future Scheduled 2022-06-16 MEDICARE AWV (Initial) [employer] Test 07:59:04 [code = MEDICARE AWV of Medi cine (Initial)] Future Scheduled 2022-06-16 ZOSTER VACCINE (1 of [employer] Test 07:59:04 2) [code = ZOSTER of Medicin e VACCINE (1 of 2)] Future Scheduled 2022-06-16 COVID-19 Vaccine (4 - [employer] Test 07:59:04 Booster for Moderna of Medic ine series) [code = COVID-19 Vaccine (4 - Booster for Moderna series)] Future Scheduled 2022-06-16 FLU VACCINE > 6 MONTHS [employer] Test 07:59:04 [code = FLU VACCINE > of Med icine 6 MONTHS] Future Scheduled 2022-06-16 Screening for [facility] Test 07:59:04 malignant neoplasm of of Med icine colon (procedure) [code = 757054884] Future Scheduled 2021-11-18 Screening for [facility] Test 09:34:08 malignant neoplasm of of Med icine colon (procedure) [code = 138254279] Future Scheduled 2021-11-18 Screening for [facility] Test 09:34:08 malignant neoplasm of of Med icine breast (procedure) [code = 563636766] Future Scheduled 2021-11-18 TETANUS SHOT (ADULT) [employer] Test 09:34:08 [code = TETANUS SHOT of Medi cine (ADULT)] Future Scheduled 2021-11-18 BMI FOLLOW UP PLAN [employer] Test 09:34:08 [code = BMI FOLLOW UP of Med icine PLAN] Future Scheduled 2021-11-18 Hepatitis C screening [facility] [employer] Test 09:34:08 (procedure) [code = of Medic ine 449390393] Future Scheduled 2021-11-18 Human immunodeficiency [employer] Test 09:34:08 virus screening of Medicine (procedure) [code = 132360500] Future Scheduled 2021-11-18 Screening for [facility] Test 09:34:08 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) [code = 902454996] Future Scheduled 2021-11-18 MEDICARE AWV (Initial) [employer] Test 09:34:08 [code = MEDICARE AWV of Medi cine (Initial)] Future Scheduled 2021-11-18 ZOSTER VACCINE (1 of [employer] Test 09:34:08 2) [code = ZOSTER of Medicin e VACCINE (1 of 2)] Future Scheduled 2021-11-18 FLU VACCINE > 6 MONTHS [employer] Test 09:34:08 [code = FLU VACCINE > of Med icine 6 MONTHS] Future Scheduled 2021-11-13 Depression screening Uni versity of Test 00:00:00 (procedure) [code = [place] Me dical 386998022] Branch Future Scheduled 2021-11-10 COVID-19 VACCINE (4 [facility] series) [code = COVID-19 VACCINE (4 - Booster for Moderna series)] Future Scheduled 2021-11-10 COVID-19 VACCINE (4 - [facility] Test 00:00:00 [facility] series) [code = COVID-19 VACCINE (4 - Booster for Moderna series)] Future Scheduled 2021-11-06 ANOREC MANOM AND 1 Occurrences [facility] Test 14:07:12 EMG-GI DEPT [code = starting of Medic ine NOCPT] 11/06/2021 until 05/06/2022 Future Scheduled 2021-11-06 EGD W/MAC - GI DEPT 1 Occurrences [facility] Test 14:07:11 [code = 56538] starting of Medicine 11/06/2021 until 05/06/2022 Future Scheduled 2021-11-06 COLONOSCOPY W MAC GI 1 Occurrences [facility] Test 14:07:11 DEPT [code = 69562] starting of Medic ine 11/06/2021 until 05/06/2022 Future Scheduled 2021-11-[address] [facility] Test 00:00:00 (12+) [code = [facility] DEPRESSION SCREENING (12+)] Future Scheduled 2021-11-[address] [facility] Test 00:00:00 (12+) [code = [facility] DEPRESSION SCREENING (12+)] Future Scheduled 2020-12-28 Creatinine measurement U niversity of Test 00:00:00 (procedure) [code = [facility] [place] dical 48283939] Branch Future Scheduled 2020-12-28 Calculated low density U niversity of Test 00:00:00 lipoprotein [facility] cholesterol level Branch (procedure) [code = 824271577] Future Scheduled 2020-06-27 Hemoglobin A1c Universit y of Test 00:00:00 measurement [facility] (procedure) [code = Branch 19552030] Future Scheduled 2020-04-18 Diabetic foot University of Test 00:00:00 examination [facility] (regime/therapy) [code Bran h = 685736283] Future Scheduled 2019-09-16 Examination of retina Un iversity of Test 00:00:00 (procedure) [code = [place] Me dical 699452103] Branch Future Scheduled 2017 SHINGLES VACCINES ([address] [facility] Test 00:00:00 of 2) [code = SHINGLES Medic al Center VACCINES (1 of 2)] Future Scheduled 2017 Screening for occult Uni versity of Test 00:00:00 blood in feces [facility] (procedure) [code = Branch 510328216] Future Scheduled 2017 Stool DNA-based Universi ty of Test 00:00:[address] [facility] screening (procedure) Branch [code = 434050290090889] Future Scheduled 2017 Flexible fiberoptic Univ ersity of Test 00:00:00 sigmoidoscopy [place] [facility] (procedure) [code = Branch 04520969] Future Scheduled 2017 Screening for University of Test 00:00:00 malignant neoplasm of [place] [facility] colon (procedure) Branch [code = 237071275] Future Scheduled 2017 Screening for University of Test 00:00:00 malignant neoplasm of [facility] colon (procedure) Branch [code = 919847762] Future Scheduled 2017 Zoster Recombinant Unive rsity of Test 00:00:00 Vaccine (SHINGRIX) (1 [place] [facility] of 2) [code = Zoster Branch Recombinant Vaccine (SHINGRIX) (1 of 2)] Future Scheduled 2017 SHINGLES VACCINES ([address] [facility] Test 00:00:00 of 2) [code = SHINGLES Medic al Center VACCINES (1 of 2)] Future Scheduled [address] [facility] Test 00:00:00 (procedure) [code = [facility] 76011514] Future Scheduled [address] [facility] Test 00:00:00 (procedure) [code = [facility] 89555764] Future Scheduled 2011-11-[address] [facility] [facility] Test 00:00:00 WELLNESS (YEAR 2 or Medical Center FIRST YEAR if no IPPE) [code = MEDICARE ANNUAL WELLNESS (YEAR 2 or FIRST YEAR if no IPPE)] Future Scheduled 2011-11-[address] [facility] Test 00:00:00 WELLNESS (YEAR 2 or Medical Center FIRST YEAR if no IPPE) [code = MEDICARE ANNUAL WELLNESS (YEAR 2 or FIRST YEAR if no IPPE)] Future Scheduled 2007 Screening for University of Test 00:00:00 malignant neoplasm of [facility] breast (procedure) Branch [code = 884968213] Future Scheduled [address] [facility] Test 00:00:00 [facility] cervix (procedure) [code = 820816078] Future Scheduled 1988 Screening for University of Test 00:00:00 malignant neoplasm of [facility] cervix (procedure) Branch [code = 714216171] Future Scheduled [address] [facility] Test 00:00:00 malignant neoplasm of Medica l Center cervix (procedure) [code = 232751164] Future Scheduled 1986 DTAP/TDAP/TD [facility]ACCINES [facility] Test 00:00:00 (1 - Tdap) [code = Medical C enter DTAP/TDAP/TD VACCINES (1 - Tdap)] Future Scheduled 1986 DTaP,Tdap,and Td Univers ity of Test 00:00:00 Vaccines (1 - Tdap) [place] [facility] [code = DTaP,Tdap,and Branch Td Vaccines (1 - Tdap)] Future Scheduled 1986 DTAP/TDAP/TD [facility]ACCINES [facility] Test 00:00:00 (1 - Tdap) [code = Medical C enter DTAP/TDAP/TD VACCINES (1 - Tdap)] Future Scheduled 1985 HEPATITIS C [facility]CRE[facility]ING [facility] Test 00:00:00 [code = HEPATITIS C Medical Center SCREENING] Future Scheduled 1985 HEPATITIS C [facility]ING [facility] Test 00:00:00 [code = HEPATITIS C Medical Center SCREENING] Future Scheduled 1977 Microalbumin University of Test 00:00:00 measurement, urine, [place] [facility] quantitative Branch (procedure) [code = 707021362] Future Scheduled [address] [facility] Test 00:00:00 malignant neoplasm of Medica l Center breast (procedure) [code = 890582941] Future Scheduled [address] [facility] Test 00:00:00 (combo) [code = CT Medical C enter Colonography (combo)] Future Scheduled [address] [facility] Test 00:00:00 malignant neoplasm of Medica l Center colon (procedure) [code = 157507076] Future Scheduled [address] [facility] Test 00:00:00 malignant neoplasm of Medica l Center colon (procedure) [code = 081699617] Future Scheduled 1967 Sigmoidoscopy [code = [facility] [address] [facility] [facility] Test 00:00:00 malignant neoplasm of Medica l Center breast (procedure) [code = 134049961] Future Scheduled [address] [facility] Test 00:00:00 (combo) [code = CT Medical C enter Colonography (combo)] Future Scheduled [address] [facility] Test 00:00:00 malignant neoplasm of Medica l Center colon (procedure) [code = 252291284] Future Scheduled [address] [facility] [facility] Test 00:00:00 [facility] (procedure) [code = 756820809] Future Scheduled 1967 Sigmoidoscopy [code [facility] Test 00:[facility] Sigmoidoscopy] Medical Cente r Encounters Start End Encounter Admission Attending Care Care Encounter Source Date/Time Date/Time Type Type Clinicians Facility Department ID 2021-08-29 Emergency [facility] [id number] Univers 21:08:39 [facility] 2020-08-23 Inpatient Tapan Martin [facility] ENDO [id number] [facility] 15:14:00 14 [facility] 2019-12-07 Inpatient KYLAH Rodriguez [facility] ENDO [id number] [facility] 10:00:00 Cas 32 [facility] 2022-09-21 2022-09-21 Outpatient R JAZIEL [facility] [id number] Univers 09:45:00 09:45:00 RANDALL [facility] 2022-08-31 2022-08-31 Office JAYESH OLSEN 1.2.840.114 [id number] [facility] 13:14:07 15:10:18 Visit [employer] [facility] 350.1.13.21 College Y 0.2.7.2.686 [id number] [facility] 810 e 2022-08-28 2022-08-28 Outpatient R JO [facility] [id number] Univers 08:05:50 23:59:00 SONJA pierre [facility] 2022-08-28 2022-08-28 Hospital [facility] 1.2.840.114 [id number] Univers 08:05:50 23:59:00 Encounter Sonja LEE 350.1.13.10 ity [place] [id number] [address] 2022-08-28 2022-08-28 Lawyers Jenniffer Paige [facility] 1.2.8 40.114 [id number] Univers 08:15:00 08:30:00 Visit Sonja Osorio 350.1.13.10 [place] of [place].2.686 [place] [facility] [id number] Ia mary [address] 2022-08-28 2022-08-28 Telephone [facility] 1.2.021.054 [id number] Univers 00:00:00 00:00:00 Sonja HEALTH 350.1.13.10 it y of [place] 4.2.7.2.686 Frankie as ULISSES?BLEA [id number] [address] OFFICE [facility] 2022-08-26 2022-08-26 Outpatient R JO [facility] [id number] Univers 00:00:00 00:00:00 SONJA pierre [facility] 2022-08-25 2022-08-25 Outpatient R GLENSourav [facility] [id number] Univers 10:00:00 11:23:37 SONJA pierre [facility] 2022-08-25 2022-08-25 [facility] 1.2.840.114 [id number] Univers 10:00:00 11:23:37 Visit Sonja MIR 350.1.13.10 it [facility] 4.2.7.2.686 Frankie as ULISSES?BLEA [id number] [address] OFFICE [facility] 2022-08-24 2022-08-24 Telephone [facility] 1.2.436.251 [id number] Univers 00:00:00 00:00:00 Sonja HEALTH 350.1.13.10 it y of [place] 4.2.7.2.686 Frankie as ULISSES?BLEA [id number] [address] OFFICE [facility] 2022-08-21 2022-08-21 Rohith Sheriff [facility] 1.2.840.114 [id number] Univers 00:00:00 00:00:00 Randall HEALTH 350.1.13.10 it y of [place] 4.2.7.2.686 Frankie as ULISSES?BLEA [id number] [address] MEDICAL OFFICE [facility] 2022-08-18 2022-08-18 [facility] 1.2.840.114 [id number] Univers 00:00:00 00:00:00 Randall HEALTH 350.1.13.10 it y of [place] 4.2.7.2.686 Frankie as ULISSES?BLEA [id number] [address] OFFICE [facility] 2022-08-11 2022-08-11 Office CARIE RAI 1.2.840.114 [id number] [facility] 15:06:02 15:06:02 Visit [employer] 350.1.13.21 College Y 0.2.7.2.686 of [id number] [facility] 800 e 2022-08-06 2022-08-06 [facility] 1.2.840.114 [id number] Univers 00:00:00 00:00:00 Randall HEALTH 350.1.13.10 it y of [place] 4.2.7.2.686 Frankie as ULISSES?BLEA [id number] [address] OFFICE [facility] 2022-08-05 2022-08-05 [facility] 1.2.840.114 [id number] Univers 00:00:00 00:00:00 Randall HEALTH 350.1.13.10 it y of [place] 4.2.7.2.686 Frankie as ULISSES?BLEA [id number] [address] OFFICE [facility] 2022-07-30 2022-07-30 [facility] 1.2.840.114 [id number] Univers 00:00:00 00:00:00 Randall HEALTH 350.1.13.10 it y of [place] 4.2.7.2.686 Frankie as ULISSES?BLEA [id number] [address] MEDICAL OFFICE [facility] 2022-07-28 2022-07-28 [facility] S. [facility] [id number] 11:11:47 23:59:00 Encounter [facility] 2022-07-28 2022-07-28 [facility] Angelica Mathis [facility] [id number] 11:11:47 23:59:00 Encounter [facility] 2022-07-28 2022-07-28 Outpatient Angelica MATHIS [facility] SLE [id number] SLE 11:11:47 23:59:00 2022-07-26 2022-07-26 [facility] 1.2.840.114 [id number] Univers 00:00:00 00:00:00 Randall HEALTH 350.1.13.10 it y of [place] 4.2.7.2.686 Frankie as ULISSES?BLEA [id number] [address] OFFICE [facility] 2022-07-21 2022-07-21 [facility] 1.2.840.114 [id number] Univers 00:00:00 00:00:00 Randall HEALTH 350.1.13.10 it y of [place] 4.2.7.2.686 Frankie as ULISSES?BLEA [id number] [address] 2022-07-19 2022-07-19 [facility] 1.2.840.114 [id number] Univers 00:00:00 00:00:00 Randall HEALTH 350.1.13.10 it y of [place] 4.2.7.2.686 Frankie as ULISSES?BLEA [id number] [address] OFFICE [facility] 2022-07-09 2022-07-09 [facility] 1.2.840.114 [id number] Univers 00:00:00 00:00:00 Randall HEALTH 350.1.13.10 it y of [place] 4.2.7.2.686 Frankie as ULISSES?BLEA [id number] [address] 2022-07-08 2022-07-08 Outpatient Angelica MATHIS [facility] [id number] [facility] 11:43:31 12:15:51 Colleg e of Medicin e 2022-07-08 2022-07-08 Outside Angelica Mathis [facility] [id number] 00:00[facility]00 00:00:[address] [facility] 2022-07-08 2022-07-08 Outside Angelica Mathis [facility] [id number] 00:00[facility]00 00:00:[address] [facility] 2022-07-04 2022-07-04 [facility] 1.2.840.114 [id number] Univers 00:00:00 00:00:00 Oklee HEALTH 350.1.13.10 it y of [place] 4.2.7.2.686 Frankie as ULISSES?BLEA [id number] [address] OFFICE [facility] 2022-06-30 2022-06-30 [facility] 1.2.840.114 [id number] Univers 00:00:00 00:00:00 [facility] 350.1.13.10 it y of [place] 4.2.7.2.686 Frankie as ULISSES?BLEA [id number] [address] OFFICE [facility] 2022-06-23 2022-06-23 Outpatient Leona CALERO [facility] [id number] Univers 09:00:00 09:00:00 GERMAIN pierre [facility] 2022-06-21 2022-06-21 Rohith [facility] 1.2.840.114 [id number] Univers 00:00:00 00:00:00 [facility] 350.1.13.10 it y of [place] 4.2.7.2.686 Frankie as ULISSES?BLEA [id number] [address] OFFICE [facility] 2022-06-17 2022-06-17 [facility] [id number] Univers 10:00:00 10:00:00 RANDALL pierre [facility] 2022-06-16 2022-06-16 Office CARIE WISE 1.2.840.114 [id number] [facility] 07:46:52 10:29:18 Visit CHARO AMBULATOR 350.1.13.21 College Y 0.2.7.2.686 of [id number] [facility] 325 e 2022-06-08 2022-06-08 [facility] 1.2.840.114 [id number] Univers 00:00:00 00:00:00 Randall HEALTH 350.1.13.10 it y of [place] 4.2.7.2.686 Frankie as ULISSES?BLEA [id number] [address] MEDICAL OFFICE BUILDING 2022-06-08 2022-06-08 [facility] 1.2.840.114 [id number] Univers 00:00:00 00:00:00 Randall HEALTH 350.1.13.10 it y of [place] 4.2.7.2.686 Frankie as ULISSES?BLEA [id number] [address] MEDICAL OFFICE [facility] 2022-06-03 2022-06-03 [facility] 1.2.840.114 [id number] Univers 00:00:00 00:00:00 Randall HEALTH 350.1.13.10 it y of [place] 4.2.7.2.686 Frankie as ULISSES?BLEA [id number] [address] MEDICAL OFFICE [facility] 2022-06-03 2022-06-03 [facility] 1.2.840.114 [id number] Univers 00:00:00 00:00:00 Randall HEALTH 350.1.13.10 it y of [place] 4.2.7.2.686 Frankie as ULISSES?BLEA [phone] [address] MEDICAL OFFICE BUILDING 2022-05-17 2022-05-17 [facility] 1.2.840.114 [id number] Univers 00:00:00 00:00:00 Randall HEALTH 350.1.13.10 it y of [place] 4.2.7.2.686 Frankie as ULISSES?BLEA [phone] Me [address] OFFICE [facility] 2022-05-11 2022-05-11 Rohith [facility] 1.2.840.114 [id number] Univers 00:00:00 00:00:00 Randall HEALTH 350.1.13.10 it y of [place] 4.2.7.2.686 Frankie as ULISSES?BLEA [id number] [address] 2022-04-08 2022-04-08 Outpatient Aguilar_M VFP VFP [id number] [id number] [facility] 00:00:00 00:00:00 [id number] Family Practic e 2022-04-08 2022-04-08 [facility] 1.2.840.114 [id number] Univers 00:00:00 00:00:00 [facility] 350.1.13.10 it y of [place] 4.2.7.2.686 Frankie as ULISSES?BLEA [id number] [address] 2022-03-31 2022-03-31 [facility] 1.2.840.114 [id number] Univers 00:00:00 00:00:00 [facility] 350.1.13.10 it y of [place] 4.2.7.2.686 Frankie as ULISSES?BLEA [id number] [address] 2022-03-18 2022-03-18 Outpatient Leona SHERIFF [facility] [id number] Univers 09:30:00 09:45:06 RANDALL pierre [facility] 2022-03-18 2022-03-18 Office [facility] 1.2.840.114 [id number] Univers 09:30:00 09:45:00 Visit [facility] 350.1.13.10 it y of [place] 4.2.7.2.686 Frankie as ULISSES?BLEA [id number] [address] 2022-03-18 2022-03-18 [facility] [id number] Univers 09:30:00 09:30:00 RANDALL henri [facility] 2022 2022 Rohith [facility] 1.2.840.114 [id number] Univers 00:00:00 00:00:00 Randall HEALTH 350.1.13.10 it y of [place] 4.2.7.2.686 Frankie as ULISSES?BLEA [id number] [address] 2022-03-13 2022-03-13 [facility] 1.2.840.114 [id number] Univers 00:00:00 00:00:00 Randall HEALTH 350.1.13.10 it y of [place] 4.2.7.2.686 Frankie as ULISSES?BLEA [id number] [address] 2022-03-11 2022-03-11 [facility] 1.2.840.114 [id number] Univers 00:00:00 00:00:00 Randall HEALTH 350.1.13.10 it y of [place] 4.2.7.2.686 Frankie as ULISSES?BLEA [id number] [address] 2022-03-09 2022-03-09 [facility] 1.2.840.114 [id number] Univers 00:00:00 00:00:00 Randall HEALTH 350.1.13.10 it y of [place] 4.2.7.2.686 Frankie as ULISSES?BLEA [id number] [address] 2022-03-05 2022-03-05 [facility] 1.2.840.114 [id number] Univers 00:00:00 00:00:00 Randall HEALTH 350.1.13.10 it y of [place] 4.2.7.2.686 Frankie as ULISSES?BLEA [id number] [address] 2022-03-02 2022-03-02 [facility] 1.2.840.114 [id number] Univers 00:00:00 00:00:00 Randall HEALTH 350.1.13.10 it y of [place] 4.2.7.2.686 Frankie as ULISSES?BLEA [id number] Ia mary MARINO[address] OFFICE [facility] 2022-03-02 2022-03-02 Refmaddie [facility] 1.2.840.114 [id number] Univers 00:00:00 00:00:00 Randall HEALTH 350.1.13.10 it y of [place] 4.2.7.2.686 Frankie as ULISSES?BLEA [id number] [address] OFFICE [facility] 2022-02-05 2022-02-05 Telephone Jaziel [facility] 1.2.698.781 [id number] Univers 00:00:00 00:00:00 Randall HEALTH 350.1.13.10 it y of [place] 4.2.7.2.686 Franike as ULISSES?BLEA [id number] [address] OFFICE [facility] 2022-01-30 2022-01-30 Rohith [facility] 1.2.840.114 [id number] Univers 00:00:00 00:00:00 [facility] 350.1.13.10 it y of [place] 4.2.7.2.686 Frankie as PROFESSIO [id number] [address] ONE 2022-01-25 2022-01-25 Emergency [facility] ERT [id number] Univers 12:57:00 16:23:00 JACQUELIN pierre [facility] 2022-01-25 2022-01-25 Emergency [facility] [id number] Univers 12:57:00 16:23:00 Jacquelin LEE [id number] ity [facility] [id number] [place] [phone] [address] 2022-01-22 2022-01-22 Outpatient Dave_Julissa VFP VFP [id number] [facility] 08:43:00 08:43:00 [id number] Family Practic e 2022-01-14 2022-01-14 [facility] [id number] Univers 00:00:00 00:00:00 [facility] [id number] it y of [place] [id number] Frankie as SEAN [phone] Ia dical [facility] [address] OFFICE [facility] ONE 2022-01-09 2022-01-09 Outpatient JAYESH WISE [facility] [id number] [facility] 15:12:14 15:12:14 [facility] [employer] 2022-01-09 2022-01-09 Outpatient BILLIE [facility] [id number] [facility] 15:10:12 15:10:12 [facility] [employer] 2022-01-09 2022-01-09 [facility] [id number] 07:39:00 14:08:00 Encounter [facility] 2022-01-09 2022-01-09 [facility] [id number] 07:39:00 14:08:00 Encounter [facility] 2022-01-09 2022-01-09 Outpatient [facility] Surgery [id number] SLE 07:39:00 14:08:00 CHARO 2022-01-09 2022-01-09 Anesthesia Adam Sierra [facility] [id number] 11:08:00 12:56:00 Event Sigthor [facility] 2022-01-09 2022-01-09 Anesthesia Adam Sierra [facility] [id number] 11:08:00 12:56:00 Event Sigthor [facility] 2022-01-09 2022-01-09 Surgery [facility] [id number] 11:30:00 12:50:00 [facility] 2022-01-09 2022-01-09 Surgery [facility] [id number] 11:30:00 12:50:00 [facility] 2022-01-09 2022-01-09 Travel [facility] [id number] [facility] 00:[facility]00 00:00:00 [facility] 2022-01-09 2022-01-09 Travel [facility] [id number] [facility] 00:[facility]00 00:00:00 [facility] 2022-01-08 2022-01-08 Outpatient EL SLEH SLEH [id number] [facility] 12:18:15 23:59:00 2022-01-08 2022-01-08 [facility] [id number] 11:55:00 23:59:00 Encounter [facility] 2022-01-08 2022-01-08 [facility] [id number] 11:55:00 23:59:00 Encounter [facility] 2022-01-08 2022-01-08 Travel [facility] [id number] [facility] 00:[facility]00 00:00:00 [facility] 2022-01-08 2022-01-08 Travel [facility] [id number] [facility] 00:[facility]00 00:00:00 [facility] 2021-12-18 2021-12-18 [facility] 1.2.840.114 [id number] Univers 15:45:00 16:15:00 Visit [facility] 350.1.13.10 it y of [place] 4.2.7.2.686 Frankie as ULISSES?BLEA [phone] Ia mary [address] MEDICAL OFFICE BUILDING 2021-12-18 2021-12-18 Outpatient Leona CALERO [facility] [id number] Univers 15:45:00 15:45:00 [facility] 2021-12-18 2021-12-18 Outpatient Leona CALERO [facility] [id number] Univers 15:45:00 15:45:00 [facility] 2021-12-16 2021-12-16 Outpatient Leona CALERO [facility] [id number] Univers 16:00:00 16:00:00 [facility] 2021-12-16 2021-12-16 Orders Doctor OLGA 1.2.840.114 [id number] Univers 00:00:00 00:00:00 Only Unassigned, STEVE 350.1.13.10 ity of [place] [facility] 4.2.7.2.686 Frankie as [phone] [address] 2021-12-15 2021-12-15 Refill Jaziel [facility] 1.2.840.114 [id number] Univers 00:00:00 00:00:00 [facility] 350.1.13.10 it y of [place] 4.2.7.2.686 Frankie as PROFESSIO [phone] Ia mauut YOVANI [address] [place] [address] OFFICE [facility] 2021-12-08 2021-12-08 Refmaddie [facility] 1.2.840.114 [id number] Univers 00:00:00 00:00:00 [facility] 350.1.13.10 it y of [place] 4.2.7.2.686 Frankie as ULISSES?BLEA [phone] Ia dicut AMANDO [address] [place] [address] 2021-12-04 2021-12-04 [facility] [id number] 08:54:00 10:51:00 Encounter [facility] 2021-12-04 2021-12-04 [facility] [id number] 08:54:00 10:51:00 Encounter [facility] 2021-12-04 2021-12-04 Outpatient [facility] Surgery [id number] [facility] 08:54:00 10:51:00 [facility] 2021-12-04 2021-12-04 [facility] [id number] 09:00:00 10:30:00 [facility] 2021-12-04 2021-12-04 [facility] [id number] 09:00:00 10:30:00 [facility] 2021-11-19 2021-11-19 Telephone Jaziel [facility] 1.2.469.156 [id number] Univers 00:00:00 00:00:00 [facility] 350.1.13.10 it y of [place] 4.2.7.2.686 Frankie as ULISSES?BLEA [phone] [address] OFFICE [facility] 2021-11-15 2021-11-15 [facility] 1.2.840.114 [id number] Univers 00:00:00 00:00:00 [facility] 350.1.13.10 it y of [place] 4.2.7.2.686 Frankie as PROFESSIO [phone] [address] ONE 2021-11-06 2021-11-06 Office BILLIE CARIE 1.2.840.114 [id number] [facility] 13:24:51 16:22:30 Visit CHARO AMBULATOR 350.1.13.21 College Y 0.2.7.2.686 of [phone] Medi patsy 325 e 2021-11-06 2021-11-06 [facility] 1.2.840.114 [id number] Univers 00:00:00 00:00:00 [facility] 350.1.13.10 it y of [place] 4.2.7.2.686 Frankie as ULISSES?BLEA [id number] [address] 2021-11-01 2021-11-01 Outpatient Aguilar_M VFP VFP [id number] [facility] 02:58:00 02:58:00 [id number] Family Practic e 2021-10-27 2021-10-27 [facility] 1.2.840.114 [id number] Univers 00:00:00 00:00:00 [facility] 350.1.13.10 it y of [place] 4.2.7.2.686 Frankie as PROFESSIO [phone] [address] 2021-10-16 2021-10-16 [facility] 1.2.840.114 [id number] Univers 00:00:00 00:00:00 [facility] 350.1.13.10 it y of [place] 4.2.7.2.686 Frankie as PROFESSIO [phone] Ia dicjessica [facility] [address] OFFICE [facility] ONE 2021-10-11 2021-10-11 Outpatient Aguilar_M VFP VFP [id number] [facility] 06:17:00 06:17:00 [id number] Family Practic e 2021-10-07 2021-10-07 [facility] 1.2.840.114 [id number] Univers 00:00:00 00:00:00 [facility] 350.1.13.10 it y of [place] 4.2.7.2.686 Frankie as ULISSES?BLEA [phone] Ia mau[address] OFFICE [facility] 2021-10-03 2021-10-03 Outpatient Aguilar_M VFP VFP [id number] [place] [address] 05:34:00 05:34:00 [id number] Family Practic e 2021-09-29 2021-09-29 [facility] 1.2.735.038 [id number] Univers 00:00:00 00:00:00 [facility] 350.1.13.10 it y of SURGICAL 4.2.7.2.686 Frankie as SPECIALTI [phone] Ia dic[address] 2021-09-18 2021-09-18 [facility] [id number] Univers 10:15:00 10:15:00 RANDALL pierre [facility] 2021-09-18 2021-09-18 Office [facility] 1.2.840.114 [id number] Univers 08:40:07 08:55:07 Visit [facility] 350.1.13.10 it y of [place] 4.2.7.2.686 Frankie as ULISSES?BLEA [phone] [address] 2021-09-18 2021-09-18 [facility] [id number] Univers 10:15:00 08:52:38 RANDALL pierre [facility] 2021-09-08 2021-09-08 Refmaddie [facility] 1.2.840.114 [id number] Univers 00:00:00 00:00:00 [facility] 350.1.13.10 it y of [place] 4.2.7.2.686 Frankie as ULISSES?BLEA [phone] Ia mary MARINOEY [address] MEDICAL OFFICE BUILDING 2021-09-04 2021-09-04 Refmaddie [facility] 1.2.840.114 [id number] Univers 00:00:00 00:00:00 [facility] 350.1.13.10 it y of [place] 4.2.7.2.686 Frankie as PROFESSIO [phone] Ia dical NAL [facility] OFFICE BUILDING ONE 2021-08-28 2021-08-28 [facility] 1.2.840.114 [id number] Univers 00:00:00 00:00:00 [facility] 350.1.13.10 it y of [place] 4.2.7.2.686 Frankie as PROFESSIO [phone] Ia dical NAL [facility] OFFICE BUILDING ONE 2021-08-22 2021-08-22 [facility] 1.2.840.114 [id number] Univers 00:00:00 00:00:00 [facility] 350.1.13.10 it y of [place] 4.2.7.2.686 Frankie as Professio [phone] Ia mauut nal [address] [place] [address] Office Building One 2021-08-21 2021-08-21 Yousuf Hwang [facility] [place] - [id number] [facility] 00:00:00 00:00:00 [facility] [id number] Family [facility] Pract brando MD: Chase Dominguez VM_HOU_Macka e y 3, [place] [address] , Ph. 2021-08-20 2021-08-20 Outpatient Lm_Leona [facility] [id number] 45-20 [facility] 04:30:00 04:30:00 [id number] [facility] e 2021-08-20 2021-08-20 Telephone [facility] 1.2.237.713 [id number] Univers 00:00:00 00:00:00 [facility] 350.1.13.10 it y of [place] 4.2.7.2.686 Frankie as Ulisses?Blea [phone] [address] Office [facility] 2021-08-07 2021-08-07 Rohith [facility] 1.2.840.114 [id number] Univers 00:00:00 00:00:00 [facility] 350.1.13.10 it y of [place] 4.2.7.2.686 Frankie as Ulisses?Blea [phone] [address] Office [facility] 2021-07-14 2021-07-14 [facility] 1.2.840.114 [id number] Univers 00:00:00 00:00:00 [facility] 350.1.13.10 it y of [place] 4.2.7.2.686 Frankie as Ulisses?Blea [phone] [address] 2021-07-11 2021-07-11 Imm/Inj Nurse, Adc Pob Immunization [facility] 1.2.840.114 [id number] Univers 10:44:02 10:44:14 Visit Miguel Patel 350..13 .10 ity [facility] 4.2.7.2.686 [place] ess[place] [phone] [address] 2021-07-11 2021-07-11 Outpatient R IRAIS [facility] [id number] Univers 10:30:00 10:30:00 MIGUEL pierre [facility] 2021-07-10 2021-07-10 Rohith [facility] 1.2.840.114 [id number] Univers 00:00:00 00:00:00 [facility] 350.1.13.10 it y of [place] 4.2.7.2.686 Frankie as Ulisses?Blea [phone] [address] Office [facility] 2021-06-29 2021-06-29 Rohith [facility] 1.2.840.114 [id number] Univers 00:00:00 00:00:00 [facility] 350.1.13.10 it y of [place] 4.2.7.2.686 Frankie as Professio [phone] Ia dical nal [address] [place] [address] Office [facility] One 2021-06-24 2021-06-24 Rohith [facility] 1.2.840.114 [id number] Univers 00:00:00 00:00:00 [facility] 350.1.13.10 it y of [place] 4.2.7.2.686 Frankie as Professio [phone] Ia dical nal [address] [place] [address] Office [facility] One 2021-06-10 2021-06-10 Rohith [facility] 1.2.840.114 [id number] Univers 00:00:00 00:00:00 [facility] 350.1.13.10 it y of [place] 4.2.7.2.686 Frankie as Professio [phone] [facility] [address] [place] [address] One 2021-06-09 2021-06-09 Rohith [facility] 1.2.840.114 [id number] Univers 00:00:00 00:00:00 [facility] 350.1.13.10 it y of [place] 4.2.7.2.686 Frankie as Professio [phone] Ia dical nal [address] [place] [address] One 2021-06-09 2021-06-09 [facility] 1.2.840.114 [id number] 44 Univers 00:00:00 00:00:00 [facility] 350.1.13.10 it y of [place] 4.2.7.2.686 Frankie as Professio [phone] Ia dical nal [address] [place] [address] Office [facility] One 2021-06-01 2021-06-01 Rohith [facility] 1.2.840.114 [id number] Univers 00:00:00 00:00:00 [facility] 350.1.13.10 it y of [place] 4.2.7.2.686 Frankie as Professio [phone] [facility] nal [address] [place] [address] Office [facility] One 2021-05-15 2021-05-15 Chris [facility] 1.2.840.114 [id number] Univers 00:00:00 00:00:00 Outreach Jaimee [facility] 350.1.13.10 i ty of [place] 4.2.7.2.686 Frankie as Professio [phone] [address] Office [facility] One 2021-05-14 2021-05-14 Nurse Cbc, Medicare Wellness [facility] 1.2.840.114 [id number] Univers 09:04:42 10:32:18 Visit JazielRandall [facility] 350.1.13.10 ity of [place] 4.2.7.2.686 Frankie as Professio [phone] [address] Office [facility] One 2021-05-14 2021-05-14 Office Jaziel [facility] 1.2.840.114 [id number] Univers 08:58:25 09:13:25 Visit [facility] 350.1.13.10 it y of [place] 4.2.7.2.686 Frankie as Professio [phone] [address] One 2021-05-14 2021-05-14 Outpatient Leona SHERIFF [facility] [id number] Univers 09:00:00 09:00:00 RANDALL pierre [facility] 2021-05-12 2021-05-12 Rohith Sheriff [facility] 1.2.840.114 [id number] Univers 00:00:00 00:00:00 [facility] 350.1.13.10 it y of [place] 4.2.7.2.686 Frankie as Professio [phone] [address] One 2021-04-30 2021-04-30 Outpatient Leona JOYCE [facility] [id number] Univers 13:15:00 13:15:00 DUSTIN pierre [facility] 2021-04-23 2021-04-23 Outpatient Leona SHERIFF [facility] [id number] Univers 00:00:00 00:00:00 RANDALL pierre [facility] 2021-04-14 2021-04-14 Rohith Sheriff [facility] 1.2.840.114 [id number] Univers 00:00:00 00:00:00 [facility] 350.1.13.10 it y of [place] 4.2.7.2.686 Frankie as Professio [phone] Ia dic[address] Office Building One 2021-04-03 2021-04-03 Hammad Chaney 1.2.840.114 [id number] Univers 00:00:00 00:00:00 Management , Mary Draper 350.1.13.10 ity of [place]2.7.2.[place] [phone] [address] 2021-03-26 2021-03-26 Refmaddie Sheriff, [facility] 1.2.840.114 [id number] 00:00:00 00:00:00 [facility] 350.1.13.10 [place] 4.2.7.2.686 Professio [phone] [place] [address] Office Building One 2021-03-26 2021-03-26 Refmaddie Sheriff, [facility] 1.2.840.114 [id number] Univers 00:00:00 00:00:00 [facility] 350.1.13.10 it y of [place] 4.2.7.2.686 Frankie as Professio [phone] Ia dic[address] Office [facility] One 2021-03-25 2021-03-25 Refmaddie Sheriff, [facility] 1.2.840.114 [id number] 96 00:00:00 00:00:00 [facility] 350.1.13.10 [place] 4.2.7.2.686 Professio [phone] [place] [address] Office Building One 2021-03-25 2021-03-25 Refmaddie Sheriff, [facility] 1.2.840.114 [id number] Univers 00:00:00 00:00:00 [facility] 350.1.13.10 it y of [place] 4.2.7.2.686 Frankie as Professio [phone] Ia dic[address] Office Building One 2021-03-18 2021-03-18 Gala Sheriff, [facility] 1.2.487.324 [id number] 00:00:00 00:00:00 [facility] [place] 350.1.13.10 [place] 4.2.7.2.686 Professio [phone] [address] 2021-03-18 2021-03-18 Telephone [facility] 1.2.885.517 [id number] Univers 00:00:00 00:00:00 Randall [place] 350.1.13.10 i ty of [place] 4.2.7.2.[place] Profess[place] [phone] [address] 2021-03-13 2021-03-13 Gala [facility] 1.2.882.105 [id number] 00:00:00 00:00:00 [facility] 350.1.13.10 [place] 4.2.7.2.686 Professio [phone] [place] [address] Office [facility] One 2021-03-13 2021-03-13 Gala [facility] 1.2.590.848 [id number] Univers 00:00:00 00:00:00 [facility] 350.1.13.10 it y of [place] 4.2.7.2.686 Frankie as Professio [phone] [address] Office [facility] One 2021-03-10 2021-03-10 Outpatient Leona BRAND [facility] [id number] Univers 12:00:00 12:00:00 AMANDA pierre [facility] 2021-03-10 2021-03-10 Urgent Provider, [facility] 1.2.840.114 [id number] Univers 11:16:36 11:36:36 Amanda Montes De O[facility] 350.1.13.10 ity of [place] 4.2.7.2.686 Frankie as Professio [phone] [address] Office [facility] One 2021-03-10 2021-03-10 Refill [facility] 1.2.840.114 [id number] Univers 00:00:00 00:00:00 [facility] 350.1.13.10 it y of [place] 4.2.7.2.686 Frankie as Professio [phone] [address] Office [facility] One 2021-02-25 2021-02-25 Telephone Jaziel [facility] 1.2.398.038 [id number] Univers 00:00:00 00:00:00 [facility] 350.1.13.10 it y of [place] 4.2.7.2.686 Frankie as Professio [phone] [address] One 2021-02-20 2021-02-20 Refmaddie [facility] 1.2.840.114 [id number] Univers 00:00:00 00:00:00 [facility] 350.1.13.10 it y of [place] 4.2.7.2.686 Frankie as Professio [phone] [address] One 2021-02-12 2021-02-12 Office Jaziel [facility] 1.2.840.114 [id number] Univers 09:00:39 09:22:35 Visit Randall [facility] 350.1.13.10 it y of [place] 4.2.7.2.686 Frankie as Professio [phone] [address] One 2021-02-12 2021-02-12 Outpatient R JAZIEL [facility] [id number] Univers 09:00:00 09:00:00 RANDALL ity [facility] 2021-02-12 2021-02-12 Orders Doctor OLGA 1.2.840.114 [id number] Univers 00:00:00 00:00:00 Only Unassigned, STEEV 350.1.13.10 ity of [place] [facility] 4.2.7.2.686 Frankie as [phone] [address] 2021-02-10 2021-02-10 Refmaddie [facility] 1.2.840.114 [id number] Univers 00:00:00 00:00:00 [facility] 350.1.13.10 it y of [place] 4.2.7.2.686 Frankie as Professio [phone] [address] Office [facility] One 2021-01-06 2021-01-06 Telephone [facility] 1.2.539.532 [id number] Univers 00:00:00 00:00:00 [facility] 350.1.13.10 it y of [place] 4.2.7.2.686 Frankie as Professio [phone] [address] One 2021-01-06 2021-01-06 [place] [facility] 1.2.144.839 [id number] Univers 00:00:00 00:00:00 [facility] 350.1.13.10 it y of [place] 4.2.7.2.686 Frankie as Professio [phone] [address] Office [facility] One 2021-01-01 2021-01-01 Outpatient R JAYDON [facility] [id number] Univers 15:20:00 15:20:00 PABLO [facility] 2020-12-31 2020-12-31 [facility] [id number] Univers 15:50:00 15:50:00 PABLO [facility] 2020-12-12 2020-12-12 Refill [facility] 1.2.840.114 [id number] Univers 00:00:00 00:00:00 [facility] 350.1.13.10 it y of [place] 4.2.7.2.686 Frankie as Professio [phone] [address] One 2020-12-11 2020-12-11 [facility] 1.2.840.114 [id number] Univers 00:00:00 00:00:00 [facility] 350.1.13.10 it y of [place] 4.2.7.2.686 Frankie as Professio [phone] [address] One 2020-12-03 2020-12-03 Outpatient R JAYDON [facility] [id number] Univers 15:50:00 15:50:00 PABLO [facility] 2020-11-13 2020-11-13 Office [facility] 1.2.840.114 [id number] Univers 08:46:00 09:20:33 Visit [facility] 350.1.13.10 it y of [place] 4.2.7.2.686 Frankie as Professio [phone] [address] Office [facility] One 2020-11-13 2020-11-13 Outpatient R JAZIEL [facility] [id number] Univers 09:00:00 09:00:00 RANDALL pierre [facility] 2020-11-11 2020-11-11 Refmaddie [facility] 1.2.840.114 [id number] Univers 00:00:00 00:00:00 Randall [place] 350.1.13.10 i ty of [place] 4.2.7.2.[place] Profess[place] [phone] [address] 2020-10-10 2020-10-10 Telephone [facility] 1.2.445.033 [id number] Univers 00:00:00 00:00:00 [facility] 350.1.13.10 it y of [place] 4.2.7.2.686 Frankie as Professio [phone] [address] One 2020-10-10 2020-10-10 Letter [facility] 1.2.840.114 [id number] Univers 00:00:00 00:00:00 (Out) [facility] 350.1.13.10 it y of [place] 4.2.7.2.686 Frankie as Professio [phone] [address] One 2020-10-10 2020-10-10 Rohith [facility] 1.2.840.114 [id number] Univers 00:00:00 00:00:00 [facility] 350.1.13.10 it y of [place] 4.2.7.2.686 Frankie as Professio [phone] [address] Office [facility] One 2020-10-09 2020-10-09 Rohith [facility] 1.2.840.114 [id number] Univers 00:00:00 00:00:00 [facility] 350.1.13.10 it y of [place] 4.2.7.2.686 Frankie as Professio [phone] [address] Office [facility] One 2020-10-08 2020-10-08 Rohith [facility] 1.2.840.114 [id number] Univers 00:00:00 00:00:00 [facility] 350.1.13.10 it y of [place] 4.2.7.2.686 Frankie as Professio [phone] Ia dical nal 044 [facility] 2020-10-04 2020-10-04 [facility] [id number] Univers 11:15:00 11:15:00 PLACIDO henri [facility] 2020-10-04 2020-10-04 Office [facility] 1.2.716.698 [id number] Univers 09:57:57 10:50:32 Visit [facility] 350.1.13.10 it y of Surgical 4.2.7.2.686 Frankie as Specialti [phone] Ia dical es 198 [facility] 2020-09-11 2020-09-11 Refmaddie [facility] 1.2.840.114 [id number] Univers 00:00:00 00:00:00 [facility] 350.1.13.10 it y of [place] 4.2.7.2.686 Frankie as Professio [phone] Ia dical nal 044 [facility] 2020-09-02 2020-09-02 Refmaddie [facility] 1.2.840.114 [id number] Univers 00:00:00 00:00:00 [facility] 350.1.13.10 it y of [place] 4.2.7.2.686 Frankie as Professio [phone] Ia dical nal 044 [facility] 2020-08-26 2020-08-26 Outpatient R FIDE [facility] [id number] Univers 13:30:00 13:30:00 MOE [facility] 2020-08-15 2020-08-15 Office [facility] 1.2.840.114 [id number] Univers 09:59:04 10:14:04 Visit Germain Bryant [facility] 350.1.13.10 it y of Surgical 4.2.7.2.686 Frankie as Specialti [phone] Ia dical es 198 [facility] 2020-08-15 2020-08-15 [facility] [id number] Univers 10:00:00 10:00:00 GERMAIN pierre [facility] 2020-08-13 2020-08-13 [facility]phone [facility] [id number] Univers 00:00:00 00:00:00 Placido Mir [id number] it y of Surgical [id number] Frankie as Specialti [phone] Ia dical es 198 [facility] 2020-08-12 2020-08-12 Office [facility] [id number] Univers 09:06:31 09:21:31 Visit Randall [facility] [id number] it y of [place] [id number] Frankie as Professio [phone] Ia dical nal [address] [place] Office [facility] 2020-08-12 2020-08-12 [facility] [id number] Univers 09:00:00 09:00:00 RANDALL pierre [facility] 2020-08-08 2020-08-08 Office [facility] [id number] Univers 14:52:25 15:06:19 Visit Placido Mir [id number] it y of Surgical [id number] Frankie as Specialti [phone] Ia dical es 198 [facility] 2020-08-08 2020-08-08 [facility] [id number] Univers 15:00:00 15:00:00 PLACIDO pierre [facility] 2020-08-05 2020-08-05 Emergency [facility] [id number] Univers 15:02:00 17:02:00 Brigida Lee [id number] i ty of [place] 4.2.7.2.686 [place] [phone] [facility] [address] [place] 2020-08-05 2020-08-05 Orders Doctor OLGA [id number] Univers 00:00:00 00:00:00 Only Unassigned, STEVE [id number] ity of [place] [facility] 4.2.7.2.686 Frankie as [phone] [address] 2020-08-01 2020-08-01 [facility] 1.2.106.998 [id number] Univers 14:43:38 16:10:03 Visit Almita eLe 350.1.13.10 i ty of [place]2.7.2.[place] [phone] [facility] 188 [facility] 2020-08-01 2020-08-01 [facility] [id number] Univers 14:30:00 14:30:00 ALMITA pierre [facility] 2020-07-29 2020-07-29 [facility] 1.2.840.114 [id number] Univers 00:00:00 00:00:00 [facility] 350.1.13.10 it y of [place] 4.2.7.2.686 Frankie as Professio [phone] [address] 2020-07-23 2020-07-23 [facility] [id number] Univers 14:15:00 14:15:00 ALMITA pierre [facility] 2020-07-23 2020-07-23 Rohith [facility] 1.2.840.114 [id number] Univers 00:00:00 00:00:00 [facility] 350.1.13.10 it y of [place] 4.2.7.2.686 Frankie as Professio [phone] [address] 2020-07-22 2020-07-22 Outpatient Leona IRIWN [facility] [id number] Univers 10:00:00 10:00:00 KEN pierre [facility] 2020-07-15 2020-07-15 [facility] 1.2.840.114 [id number] Univers 00:00:00 00:00:00 [facility] 350.1.13.10 it y of [place] 4.2.7.2.686 Frankie as Professio [phone] [address] 2020-06-26 2020-06-26 Rohith [facility] 1.2.840.114 [id number] Univers 00:00:00 00:00:00 [facility] 350.1.13.10 it y of [place] 4.2.7.2.686 Frankie as Professio [phone] [address] Office [facility] 2020-06-25 2020-06-25 [facility] [id number] Univers 13:30:00 13:30:00 WENTONG ity [facility] 2020-06-12 2020-06-12 Refmaddie SheriffM[facility] 1.2.840.114 [id number] Univers 00:00:00 00:00:00 [facility] 350.1.13.10 it y of [place] 4.2.7.2.686 [place]ie as Professio [phone] [address] One 2020-06-12 2020-06-12 Gala [facility] [id number] Univers 00:00:00 00:00:00 [facility] 350.1.13.10 it y of [place] [id number] [place]ie as Professio [phone] [address] One 2020-06-11 2020-06-11 Rohith [facility] 1.2.840.114 [id number] Univers 00:00:00 00:00:00 [facility] 350.1.13.10 it y of [place] 4.2.7.2.686 [place] Professio [phone] [address] One 2020-06-05 2020-06-05 [facility] 1.2.840.114 [id number] Univers 00:00:00 00:00:00 [facility] 350.1.13.10 it y of [place] 4.2.7.2.686 [place] Professio [phone] [address] One 2020-05-28 2020-05-28 Gala [facility] 1.2.123.130 [id number] Univers 00:00:00 00:00:00 Randall [place] 350.1.13.10 i [place]2.7.2.[place] [phone] Ia dical nal 044 [facility] 2020-05-13 2020-05-13 Lawyers Jenniffer Paige [facility] 1.2.8 40.114 [id number] Univers 14:52:09 15:07:09 Visit Randall Sheriff 350.1.13.10 ity of [place].2.7.2.[place] [phone] Ia dical nal 353 [facility] 2020-05-13 2020-05-13 Outpatient R SHERIFF [facility] [id number] Univers 14:30:00 14:30:00 RANDALL johnhenri [facility] 2020-05-13 2020-05-13 Office [facility] 1.2.840.114 [id number] Univers 13:57:32 14:12:32 Visit Randall Lee 350.1.13.10 i ty of [place] 4.2.7.2.[place] [phone] Ia dical nal [address] [place] [address] 2020-05-09 2020-05-09 Refill [facility] 1.2.840.114 [id number] Univers 00:00:00 00:00:00 [facility] 350.1.13.10 it y of [place] 4.2.7.2.686 Frankie as Professio [phone] Ia dicut nal [address] [place] [address] One 2020-04-10 2020-04-10 Refill [facility] 1.2.840.114 [id number] Univers 00:00:00 00:00:00 [facility] 350.1.13.10 it y [place] 4.2.7.2.686 [place]ie as Professio [phone] Ia dical nal [address] [place] [address] 2020-03-13 2020-03-13 Telephone [facility] 1.2.063.270 [id number] Univers 00:00:00 00:00:00 Randall [facility] 350.1.13.10 i ty of [place] [id number] [place] [phone] Ia dical nal [address] [place] [address] 2020-03-11 2020-03-11 Refill [facility]iel[facility] 1.2.840.114 [id number] Univers 00:00:00 00:00:00 [facility] 350.1.13.10 it y of [place] 4.2.7.2.686 Frankie as Professio [phone] [facility] 044 [facility] One 2020-02-20 2020-02-20 Telemediccarlos RamirezMIMBRES [facility] 1.2.840.114 [id number] Univers 08:07:16 16:58:17 ne Visit Kwesi Lee 350.1.13.10 ity of [place] 4.2.7.2.[place] [phone] [facility] 220 [facility] 2020-02-20 2020-02-20 Outpatient R MELI [facility] [id number] Univers 15:00:00 15:00:00 [facility] 2020-02-15 2020-02-15 [facility] [id number] Univers 07:30:00 07:30:00 RANDALL pierre [facility] 2020-02-15 2020-02-15 Telemedici [facility] 1..840.114 [id number] Univers 06:51:18 07:06:18 ne Visit Randall Lee 350.1.13.10 ity of [place] 4.2.7.2.[place] [phone] [address] 2020-02-14 2020-02-14 Outpatient R SHERIFF [facility] [id number] Univers 07:00:00 07:00:00 RANDALL pierre [facility] 2020-02-12 2020-02-12 Refmaddie SheriffM[facility]ES [facility] 1.2.840.114 [id number] Univers 00:00:00 00:00:00 Randall [facility] 350.1.13.10 it y of [place] 4.2.7.2.686 Frankie as Professio [phone] [address] One 2020-01-11 2020-01-11 Refmaddie SheriffM[facility]BRES [facility] 1.2.840.114 [id number] Univers 00:00:00 00:00:00 [facility] 350.1.13.10 it y of [place] 4.2.7.2.686 Frankie as Professio [phone] [address] Office [facility] 2019-12-28 2019-12-28 Office Jaziel [facility] 1.2.840.114 [id number] Univers 09:22:44 09:56:04 Visit [facility] 350.1.13.10 it y of [place] 4.2.7.2.686 [place]ie as Professio [phone] [address] Office [facility] 2019-12-28 2019-12-28 Outpatient R JAZIEL [facility] [id number] Univers 09:30:00 09:30:00 RANDALL ity [facility] 2019-12-14 2019-12-14 Refmaddie SheriffM[facility] 1.2.840.114 [id number] Univers 00:00:00 00:00:00 [facility] 350.1.13.10 it y of [place] 4.2.7.2.686 Frankie as Professio [phone] [address] Office [facility] 2019-12-11 2019-12-11 Telephone SheriffM[facility]ES [facility] [id number] Univers 00:00:00 00:00:00 [facility] 350.1.13.10 it y of [place] 4.2.7.2.686 Frankie as Professio [phone] [address] One 2019-12-02 2019-12-02 Refill SheriffM[facility] 1.2.840.114 [id number] Univers 00:00:00 00:00:00 [facility] 350.1.13.10 it y of [place] 4.2.7.2.686 [place]ie as Professio [phone] [address] Office [facility] 2019-11-15 2019-11-15 Office [facility] 1.2.840.114 [id number] Univers 06:58:39 07:13:39 Visit [facility] 350.1.13.10 it y of [place] 4.2.7.2.686 Frankie as Professio [phone] [address] Office Building One 2019-10-27 2019-10-27 Outpatient R JENNIFER, [facility] [id number] Univers 09:55:58 23:59:00 [facility] 2019-07-20 2019-07-20 Refmaddie SheriffM[facility]ES [facility] 1.2.840.114 [id number] Univers 00:00:00 00:00:00 [facility] 350.1.13.10 it y of [place] 4.2.7.2.686 [place]ie as Professio [phone] [address] Office Building One 2019-07-04 2019-07-04 Refmaddie SheriffM[facility]ES [facility] 1.2.840.114 [id number] Univers 00:00:00 00:00:00 [facility] 350.1.13.10 it y of [place] 4.2.7.2.686 Frankie as Professio [phone] [address] Office [facility] 2019-06-28 2019-06-28 Office [facility] 1.2.840.114 [id number] Univers 09:34:17 10:06:56 Visit [facility] 350.1.13.10 it y of [place] 4.2.7.2.686 [place]ie as Professio [phone] [address] Office [facility] One 2019-06-28 2019-06-28 Refmaddie SheriffM[facility]ES [facility] 1.2.840.114 [id number] Univers 00:00:00 00:00:00 [facility] 350.1.13.10 it y of [place] 4.2.7.2.686 [place]ie as Professio [phone] [address] Office [facility] One 2019-06-21 2019-06-21 Refmaddie SheriffMIMBRES [facility] 1.2.840.114 [id number] Univers 00:00:00 00:00:00 [facility] 350.1.13.10 it y of [place] 4.2.7.2.686 Frankie as Professio [phone] [address] Office Building One 2018-12-09 2018-12-09 Ambulatory nullFlavo [facility] [id number] Memoria 20:45:00 20:45:00 Pre-Reg r Neurology 03 l Juan [place] 2018-12-09 2018-12-09 Ambulatory nullFlavo MNA [id number] Memoria 20:45:00 20:45:00 Pre-Reg r Neurology 03 l Juan [place] 2018-12-09 2018-12-09 Outpatient MHIE MHIE [id number] Memoria 14:45:00 14:45:00 03 bonnie [place] 2018-12-09 2018-12-09 [facility] [id number] 14:45:00 14:45:00 John Daina Mcmanus 2018-07-26 2018-07-26 Outpatient MHIE MHIE [id number] Memoria 09:00:00 09:00:00 02 bonnie [place] 2018-07-26 2018-07-26 Outpatient MHIE MHIE [id number] Memoria 09:00:00 09:00:00 02 bonnie [place] 2018-04-26 2018-04-26 Outpatient MHIE MHIE [id number] Memoria 08:30:00 08:30:00 01 bonnie [place] 2018-04-26 2018-04-26 Outpatient MHIE MHIE [id number] Memoria 08:30:00 08:30:00 01 l [place] 2018-04-04 2018-04-05 Day nullFlavo [facility] [id number] Memoria 17:57:00 04:59:00 Surgery r [place] 02 l [facility] Spine [facility] 2018-04-04 2018-04-05 Day nullFlavo [facility] [id number] Memoria 17:57:00 04:59:00 Surgery r [place] 02 l [facility] 2018-04-04 2018-04-04 Outpatient Kimberly Ng [facility] [id number] 12:57:00 23:59:00 Han 2018-03-30 2018-03-30 Outpatient MHIE MHIE [id number] Memoria 13:30:00 13:30:00 00 bonnie [place] 2018-03-30 2018-03-30 Outpatient MHIE MHIE [id number] Memoria 13:30:00 13:30:00 00 bonnie Dawood 2018-03-21 2018-03-22 Day nullFlavo [facility] [id number] Memoria 19:01:00 04:59:00 Surgery r [place] 01 l [facility] 2018-03-21 2018-03-22 Day nullFlavo [facility] [id number] Memoria 19:01:00 04:59:00 Surgery r [place] 01 l [facility] [place] [facility] 2018-03-21 2018-03-21 Outpatient Kimberly Ng [facility] [id number] 14:01:00 23:59:00 Han 2015-11-08 2015-11-08 Bedded nullFlavo [facility] [id number] Memoria 18:06:00 21:20:00 Outpatient r [place] 00 l [facility] [facility] [place] 2015-11-08 2015-11-08 Bedded nullFlavo [facility] [id number] Memoria 18:06:00 21:20:00 Outpatient r [place] 00 l [facility] [facility] 2015-11-08 2015-11-08 Outpatient Guerrero, MHSL SL [id number] 12:06:00 15:20:00 Sheilendra 00 [facility] 2015-10-24 2015-10-25 Outpt Diag nullFlavo [facility] [id number] Memoria 15:50:00 05:59:00 Services r Outpatient 00 l Imaging [place] 2015-10-24 2015-10-25 Outpt Diag nullFlavo [facility] [id number] Memoria 15:50:00 05:59:00 Services r Outpatient 00 l Imaging [place] 2015-10-24 2015-10-24 [facility] [id number] 09:50:00 23:59:00 Sheilendra 00 [facility] Results Test Description Test Time Test Comments Results Result Comments Source POCT MOLECULAR FLU 2022-08-25 16:06:41 Test Item Value Reference Range Interpretation Comme nts POCT Molecular FluA (test code = 20033-7) Negative Negative POCT Molecular FluB (test code = 04879-2) Negative Negative Lab Interpretation (test code = 74460-7) Normal [facility] MOLECULAR [id number] 16:06:41 Test Item Value Reference Range Interpretation Comments POCT Molecular FluA (test code = Negative Negative 33676-3) POCT Molecular FluB (test code = Negative Negative 17010-2) Lab Interpretation (test code = Normal 49138-3) [facility] [id number] 16:19:00Reason for Exam:->Morbid (severe) obesity due to excess calories [facility] : 1965 Sex: FFINAL REPORT [place], UGI, WITH KUB CLINICAL HISTORY: Morbid (severe) obesity due toexcess calories COMPARISON: None. TECHNIQUE: A car installations supervisor abdominal radiograph is acquired. The esophagus, stomach, and proximal small bowel are evaluated with single contrast technique after oral ingestionof thick and thin barium using real-time fluoroscopy and acquisition of multiple spot digital radiographs. Patient could not tolerate gas granules, could not perform double contrast technique. Fluoro Time: 1.4 minutesReference air kerma: 125 mGy FINDINGS: Ink Jet Operator radiograph findings: Normal bowel gas pattern. Esophageal caliber: Normal with no focal narrowing.Esophageal motility: Normal.Hiatal hernia: N one.Gastroesophageal reflux: None observed. Stomach: Diminished luminal size of the stomach, consistent with given history of sleeve gastrectomy, otherwise unremarkable single contrast technique.Duodenal bulb: Unremarkable for single contrast technique.Visualized proximal small bowel: Unremarkable. IMPRESSION: Status post sleeve gastrectomy with otherwise unremarkable single contrast upper GI. Signed: Anika Swanson Verified Date/Time: 07/28/2022 16:19:45 Tissue [id number] 18:24:44 Test Item Value Reference Range Interpretation Comments Case Report (test code Surgical Pathology = 104) Report Case: [id number] Authorizing Provider: Charo Wise MD Collected: 01/09/2022 11:31 AM Ordering Location: [facility] Endoscopy Received: 01/09/2022 03:51 PM Services Pathologist: Evelin Wharton MD Specimens: A) - Polyp, Colon - Right/Ascending, ascending colon polyp B) - Polyp, Colon - Sigmoid, sigmoid polyp C) - Biopsy, Gastric, random gastric bx DIAGNOSIS (test code = e4eifBBoFUNsj1ihNORirE 3220) FuZzEwMzNcZnRuYmpcdWMx IHtccnRmMVxlcGljOTYwMV wthaLxEVEagXLaY7Bwiivf GGzkJS8aWC1akAjttXOqnR QdNXJzOsUdu1ldr785jOLc q8ntBTPIaqnjnMi0uZfsT7 2og4D1YgsnH67ajGXdVFF7 SBRyQCOvoLYsOHNrEDN0ZM BgpZPsH5esFRNlLV5wodkl ICbpTLsrZUNrtCV1LWYxcO RhU8XuQBXtJSayNLHyqjx5 BySjEs2jsWCbwQgkOTxhKW VuLKPyNUgxQGBqIzWiSU5k U40CG43hAEOMS8fOU7MIB7 UTBBkQLnnzBA3FBQBPU5BX VVd0PTTajwg5VPPzPMLIHA SVOGFQUMEBBU9JKHRbeKUp SHAnokNMHeBOZ1lNUftjP9 dOFL1MUDhbOI7NAZAGA5DN LSa7IEJxili1FKZqGNYKRT KDOMNDUQTLXE6AWAUpCSGl keysZOWeMj1kY6GPHETXMR kaN2mNERSYC7VmA8XVM8vD IMFUSLRXOR0AM0rmrWGfFZ RhYiAtIFJFQUNUSVZFIEdB J0DDE5AVRQaHDDKjmdp0MV WmKXDLCAaBVYkHEN9IH73M EIYFBBDLOB4XUDUQJUnBXK 9HSUMgQUxURVJBVElPTlxw KTRfmDPnOZ4nAoKSJVPMLl TpPk5GFLaULApBO4WXD5CU McKKHDVAB60EB1ZHJWNPDy BXFbOPF6ETGM1BFXIOPStH V0auPLE7x3srfLNaJSBwmK UxODAwMFxhbnNpXGRlZmxh fhdyQRRkMRX5wqPyGJDiGB bbEPGoBVqhNd7vlSMojNoc TdOrRQEvv5tleyISkbmudH w9z6juEDAgNzP3rMHrSLfn E9iuybCabEXhPXFzSXl8aA 16CRQrwV6yjDEzRSzupbMm JaI7XPinYJWfLxI4KIFghW OjFKGdT7rhAZScDUqyUTJr HYzvlHCsSVH0yAkwy6T5nQ VzaGVldHtcZjBcZnMyMiBO c8TaNFm9lNqjW2VzKZKjSb W1jZBbJMVaFPjyJNNbXBTv kbT5dX76WNfthtY6bEVwf0 Zfb13le585qD7upGBbGEI6 DQVoMYJmiHYwSRKbIJZ2PQ VycZRtC9fvLNAkUO6wauzn XLqhZZhhIOJowUG9EDQvaP VkR0ZfGSRzWLpfWJUqepq0 DwUxQz2jbTKrhUquNRyxz5 wrb4qbgCXiTlw0GRVnQbUf AeksHDtez1Mvh7xqXLGkgq 0hCJC4wUFnzPofy7J1eTKc RLHtiCCqYPYsRO9ayHUcDR ZqeX0nolfgNDKuFwJanewt NWBlcXzcarXpCx5lnPzsGU L5TLvjU2rsiI7aOzC0GWgm Y5yayW9aZEc1RGurKVZyaW H6hpF4MLCcpLNkQ9HsqP6u CAPeKB1kcoc5h0jmSOD9WJ tiFATlGzG4laG9TWKlnMGl RHRejUmeIOgqz336YIJ8Om YhRXMxy0KhS9LczKffF98e uVqyP67iUFWowAawlH0mhN yvzF6nMsTiTsIwPBpikWdf BA1oCWKyE1konORrXXOnZE FrF9cyOeVgwO0vaJkgYQjy dqHnFCQzBcs0SOAicVMzKR RyRap6YBUeQSQsY59bggzl BGV6uF7mq2fqc2IkKWunOG C9XRWbq02kQPirxsQ3VTiw Lj43ORxjSUG2YRcpMLU5wP == CPT Code(s) (test code i6iztEQiVRWnwYF3BqPhEH = 5197) Kun7fnu5FrhMLsrZXvAKkz vZZbjsPnzb23kAF2oU93AV 7yRXClUlI8OWTsviH6Dtk7 EWNtQMHbfDTaF826x1rkw2 rpcpWtjKE4oFotAFYgujjf WvW0EBugSUUnsadkRLu1KM qlEPUtzBM1PGMbxNRsD3Rh IEJbXD8hezi0DWN7SEdwQS EfAlX9JAFgcKTmLINsqEsq FJfar298NTI7NnTkCGFhda WanMjnoF9oYeFcGLH9RRCm NVgzXHBhcn0= CLINICAL HISTORY (test i0dehTHgJNRagYU5DbNxLA code = 3356) Tzr7hnu8YelHKnuXTqDYkf pJDgdbQjep62iKV8bP63DP 1pCINtNjK0TVTuklU7Jvx5 DYCoGKRwuFMrB332h9byp8 cuxmXnnGL1iXrtRPXveaou OoR7TYlnTAGotcvnMGy2SJ gyQZOtzCP4ORKnqJVhU3Jj GGIxLI4dkwc7JPY1YYmeAN CoHdA0RUIlkXUuLFSqjCov BAegv806JLG2FoEsFVTxey CjjTlywF5qRwJrRGBDSKH4 mp5tj73gqYQePAEqJNFyRr w8yMOwgUCrWZWvTYLlx8v0 hTCmGsEly4vprgmkDZP1 SPECIMEN SOURCE (test y0kghXRaYRImiOS5DsEaBA code = 3377) Nbr9pdi8IukGDkgWRdMIyr hRRxpqLlsf96qTS2qA88UJ 5cWMSnEwD3QGFcqiH4Uto7 TPNxYMCbrKBgO984q1xjw5 yemzDjeYA7aMrtUBMtcvpn OpA2WQwbYBZkisknFCy3IA nhRQGxyPD7DJDjyRDgW1Cc CJCiZG3slvk8NLB4JHaaQG YoCaL8FHTuwCEqHURjzZfe YSzdo994SJU9GdHyINHytu BngElckZ4sQyHzGMSKTqXa FQ2azQOuOFVceO6tWNJqU3 n4T2AcF6ZsWFruP2mfrI5k NHZgMNYHz9g7vVigP56xs1 7gh8wnpL6hTSaegA3bNJIm DZOIgC3zr0maXWwel8TrgU MsIHJhbmRvbVxwYXJ9 GROSS DESCRIPTION (test a4gltAXvXQHppJYkZpOcNB code = 3366) CtGYRgx7woALOdwEJxToIc MzNcZnRuYmpcdWMxXGRlZm Wbz4fox173cUHnq5isWJEN pmazeYb5h8lgWAClCjA3oI SeQFfiJ1kvfaEgrFYcQKBe BSk5gB99IGMzhB4thWWlEE exffRcJyX1TDojCRQcSeR7 SBHtiMFzQYXbG6ftNGDdZN epSGRdQZkqlBVySFG5yBes u3S0fHNjkJJokBbyGuMpYl RcKMJRq1AlKGq8jOhzX1Hu TKPuIcT9sHJeKWEnWVahFO JhOWBbaaE5mL47NLopxuL5 tQHto3Gls45tl102cC5nnK MfBBL6VGTyFYVrnABtXDRo ZYX1MBIskCIzO8n0AwZbpX SeW0D4FhAaiTPjH9W7FwCa tIRvE0E4IdAlnAXyLFZqnB YkDs3bgWBbjRNqll0khy32 XGZ1o7OnnSinOJT2TDP7Gr IbHs8lzXOqULZmTLAezQMt GYFuHH3plSTjEEMvlX0zvg xjXHBnYnJkcmhlYWRccGdi fkVfDw1ouOmsEOG2MVoaS2 axcV2yTlI5SEhqP2glyP8o YGc9OJaspHC2KVNxmP0aHS 1zgwncu9jkTyClDQ3hsxcx y5plUwAjFG0rvkw5e1sbIg GsHD5aqtoti3gmOwSgXFfp YSMtvofjGBZkv8BptrbsTO Nlg0AoD5TdcBzfA33qvOke C53pFFTwxPttcC9pwQqzcM 5cZjBcZnMyNFxwYXJkXHBs YWluXGYxXGZzMjBcbGFuZz EwMzNcaGljaFxmMVxkYmNo MFSbJYwfE0pgPnLdBtSwCD BBLiBSZWNlaXZlZCBpbiBm h5AmIQcpomLbOEHxnJMwSA dpdGggdGhlIHBhdGllbnRc R0L3neMxJW7mHDYkPMRcA0 FzETTqE99iSBQmwV9kSPYn SL9dUQBmn0TvxqYowlpcA6 7hx50woN3teJBuKFVzILSj k29qaHF6mqJtDqDsARFuWB XvNN6mVJWtjzMfs0D1CDMg w2I7GIDeFVIwxOZixfjbAY 85QTimPV23PVnxEC9tCKZl PrJRwPZch8JyY8wrYR8vqN Jmv9RamHu0aBZjTQopOMJq vN8ezN5cZLHqWNmeiiWurO luZSBCLiBSZWNlaXZlZCBp qvWtt6QlFHlxumYoJZEyaW VkIHdpdGggdGhlIHBhdGll gpVqD5V6wgZoTL9oSRJdKY HuR5OvGVDaN46yUOMuyC5n ZWHeFH4lHIVfsUvcx1wiNM IpeP4cEUGwoFuoAbZwaxOk C30na2tazYFsv4MkUzBtpM IlSVJcx4YncBEwRMNiccxv w72bjHX4pCJmiGTlzpYuU7 htRsGxhoMmpNlhUDUao44d PL80LOyuJW0dXPuvTI8iWL KaQVIfQPFcQOD3RKEpGcT7 IDAuMiBjbSBhbmQgbWVhc3 RhxA4cKCIgZwT7EOFjYxH7 ALHiUwFaqBDgguTsC0oyJH hibZJpBTWrCUMydJTohZ7x vvZsxqEbiXZdlTY3PZWmnR 6auZ41moBsioSVPM0zcOxa IFfpvR0mNOEiDRByS1Amuc FeWXhiGQWhun9jdMzvZFku PtTpEZUol9w6wTM9jSFsiQ A6mBZubYyeEeAnHT3tgJGg NI5wOFooLFjyifDmu2AtJU 55oNYtanUfpuSoLdofs3Gr xTXmEsxzXGWzCCTlq67coK O4skVhXrU3INSxZHVbcuEp YoO2TI5rsFvlmhVge0B5YR Bhn3Q7PWPmPG6kyZ0jGDsg IHNpemUgZnJvbSAwLjMgeC FmAaYjbQWtHjVyM57yyK5h JH45PCgyIO3aSHplGR8fYY NtIGFuZCBtZWFzdXJpbmcg NF8cPRlaRC50UJylLN1qIO AgXDimRTUjR8MaY9B7RW5o VGhlIHNwZWNpbWVuIGlzIH L1Vu9wqCLtUCGffyC3t4Of WBzcZTBpTbdyyJ5lVMgfom TrJ1iPOZCsmy3= MICROSCOPIC DESCRIPTION y9njlVCnGDGonVA6ZuPwPM (test code = 3371) Lyr1rea8JyzDQrnTStOJjn mUXfmlJunk76lHW3mZ87SD 0gZIGiCoW0KYUcbkF3Ezx6 JRDwGJXczWFqP174n7gno9 ahbqHzlPT6dFrhCXSetjwd RjN8PQpfMTPdozdiHWd5GI luWSMxsEU6GMRspNXzQ0Iv FZVtAI0idlv5NOZ8HGfmRS IlRaL8RQGtdXIgVWFxrYjj QYfyo337YYX1HwVhBFQdca JkyWjvvO2aTnGtPEQMTFTz JR7jRXzwP3wcB2UmAZTpLK aeaItfw6srVX9vXF8ypRyi tkLiX2tfpOZfkEUofbLiZp jxEZ8uITPtkzdaKUMvDc1s Bm9of1yhdsbkiBRmqsVhoJ 6fzZRovVW2hC9xOEQnmzOq p1VgaoQwKV4pxSRzmGRveB NjJIP0t8UoKIBnIOGosuAt ENlvX92zkeT8EQkaTLRtJQ 2dKP4kOOeifKniz9ExK5Hj kmKxmBDwr86iF4JhlSOmfv OpcnQvk4DsilOlwsCvj8A0 hO2oKHH7ZNhcam6tFHbgIP J9 [facility] [id number] 18:24:44 Test Item Value Reference Range Interpretation Comments Case Report (test code Surgical Pathology = 104) Report Case: [id number] Authorizing Provider: Charo Wise MD Collected: 01/09/2022 11:31 AM Ordering Location: [facility] Endoscopy Received: 01/09/2022 03:51 PM Services Pathologist: Evelin Wharton MD Specimens: A) - Polyp, Colon - Right/Ascending, ascending colon polyp B) - Polyp, Colon - Sigmoid, sigmoid polyp C) - Biopsy, Gastric, random gastric bx DIAGNOSIS (test code = [id number] 3220) FuZzEwMzNcZnRuYmpcdWMx IHtccnRmMVxlcGljOTYwMV djezRgYAZrtSBvS6Nahiff JAkcDV1yEN1svNndhBDscS SpHWRdKbEqb4han049lGAi w1oePYNZiafdtHw9yHryF1 8fv1G6PxtoJ08uiAIpAAC2 VJHqJJQdjJVaOPRqHBY3XP EadMRdK5vgDBBfQF3hcwas XRxrVKuoDDCtaES0VYKrwR LmC3GbIABdNQtmLAFcdtr1 CyIhFp2rlGSwiYgaAYwoZO LcUPVtQKwcYOGeOcPaYH8o P28KS16yZOZRR1eBW8ZQK6 EJBViRCpdoCJ7BJCTHV5WZ TOd6VZPsryo8JPWoKQNLHA TFCTHFEUWNTO5TIFJitIJy MJNndkBPLwONJ9vJFsbhP1 cVCU4YYWcuMN3ZLOBAZ5EN OJa2LQHzvry8IGPgXCDVFS TQXVFCBBSGBO8LNEXmMTZy uflsXOYbQy4nO5TCYLGXPL lmB0zIEVQCC3XoC5NHU8cN IHKWRMGFDJ5WL3nsjGTiAG RhYiAtIFJFQUNUSVZFIEdB M8BZU8KQCSgZHCMxhph0GW AvTRKUOJoSHZvWGI8IL91H NFQKLMXRTW8ZRKKHTLkMUW 9HSUMgQUxURVJBVElPTlxw QVSjiLYxAD9qHoUFBXJKXe FiMv4UFHrDWNgXH5BHP9PA RjGJDIXYK03FV0NKKSIIIm VJIgHVB1FEHC2IQWTTDFnJ A9enUYX6i8wfoZLlUKOskN UxODAwMFxhbnNpXGRlZmxh qfxvSJUvOJU1rsTrZHPrTT tnGCZfCBpkXj6ulIBjaSlb TwAhGGJqa8vexdSGxuieqN e6c4wfCGWgLtL7nMSsUPhl I4buoeIhfKZhITAvRBg3bP 15NDKulL9gxFCgMFswxzDd PiY4YOxmIPUfWbZ4ACZppB GuANBcB7chMLTqMLzcPOEa DSgvuKHoARN6dGrpe8O4jD VzaGVldHtcZjBcZnMyMiBO g6YzVAm1yZcbP1EeLOHqGo U0oNHjWRNuZSlqCNDwWTXj grB9gG37CPtnolJ9mAUqu1 Ico76lw071hJ5lxGJbIIL1 BPZjZNTpdIJsAIPoVBP8KA TfrKFfK5gqRYJxYM3urzhw XItdLXdxXOGraMN0ZGGkjL ZqD2NkAEMaSLtjPQVphwo3 KnZaCp9ymJMyvCjxKLlna6 yzg1rshKRfKxb8AWPhNmBs FgjiPUnso0Cji6lmYOBglg 2pAJO9cWGvyWaqm9O9cYQx VAVfxBIlWQKbIE1ppCIkCF WktS2yghraEJBaOzQdckof SJVzxDzguvBnSj4odDkrVA B3NQbdQ7jzbQ0pRpV1DHdy N0txpP3zSBh7HDdsNEGvlE Q0ysO7KRAnaCDwI4EenG1t YPZsYS7xmlj2x5hyXNW9SJ qiGOVgUuR9peZ0CTChsJTe TVSwnUmeFPlto922AAI6Hs HjXGDkg3XzQ3UdnRnkJ91u sIukQ02cOMQsuKsoqV7boP qnrF3uKmPpNdMbKGekhFlp CZ8yNQAxY7qnxVMgHLLwJN JyW9huUbZgdT2lzQpmMBiz xbSzQNNtYkf8DXNsgSImOT TsCvb0WUCqKOBlE95bjety XMI1vM8pm4vvo7HoGAbrNS Q9FMWzy76kQFrbbuV6WJtv Li24LMgdHLA4YUgqTST2eC == CPT Code(s) (test code k5njrEMkYXSqxGB3ThMsWQ = 3357) Hlk1uiw5JtrUAhoEVtXFnk tFXspcAbfs97nCE0mU21QX 0dLUYkMtI2SMHfofA0Vgv6 EIGnQLDgoGBxD804z3sns4 nthyRorEO8xIbrYGBcjocz NfA0OChoWZCregjjCQz9YY ivPWWwmLO2XYXjlXTcF5Kg LLSnOL0hnvp0KUP0CSdiAE OpPmN7GKSslHArMEFigKse DKpfb666GOJ3OwHkIQNbjk EdqFksbQ9lVlDbGSA5WFYr NVgzXHBhcn0= CLINICAL HISTORY (test n0eqvZFiEBDgnMD8McAoCZ code = 3356) Mhw5qex1OznWHlbPTfAKym oLImvoVkeh14bTA3kV03LM 3jWNPoIlF1TIBfirK8Ruc9 CSXfTGXcfBUjL060e5cvd3 smwdSmaWE9lBvjFKNawyil CtT2UGgpNIIqbqnkCDj5VL neRQSorME8ZXBlgJTtD3Yx FRVoHF8ewqd6YLT0SRelZA UvDxG2QXVnrJScRGWssVig GEqgl567STI2QcLnBJEaqj HelZshwI6vVzBzVZEXRAK6 fj7zc37kfCPnLYIhRGCeMk t7dRLtoYArOONmGIAot9h5 wBEiLnBmu2bhtqecRUU5 SPECIMEN SOURCE (test s4iypLTfGQFmmQH3GuNzKA code = 3377) Czp1knt1XgmTScfASxZPpb fFGbfoEeyf21vQK8hP31UB 9rKUWfYoJ5CWMkfyB7Ccn1 TYAfUATkhHJgD825b4sgw7 ugkxNxgAH6tPdpHGLgcxnd FjG9WLogULLumcgnOXv0KN qjJFUjdUP7EBRotODaO5Hw LMQlHQ7eoko8ZMX0OKdzLG DbQpJ7PTCplBLcXJTxuDsr BHtmy601OYY1JuRdMWUtmm NqxDuwoX2bLdSvYFAFUzQk ZH3plXXuWZJjuJ6dLDRyS8 f8A4ZwK2GyCFvgF7eayA1k THHdUWCYz3i2zIyrT79yk1 7yw3vrnQ0lYJkctV8lSDRt LBFRiN0oq2hoKTwtn1XgeX MsIHJhbmRvbVxwYXJ9 GROSS DESCRIPTION (test c3sfmXGrBMQsuROuMyQdEU code = 3366) UgFLZxz3agPOCnhRGjRoBy MzNcZnRuYmpcdWMxXGRlZm Vmf6ous744lZBwy1ffTPBT tcamoRd0y1fnTXNjOyE6eF OwLAqlY6qbwqCrwRPvPOLe MPr8nB67MKJybB6jcMTbHA seghGyZmE4CVoiTVHeJhR3 MLDhoMZgZQQhL2vyHOPrFX fbBNShSRnzqNZhSGU6gQcs j7M4rOMawBNtrCtcMyXvXc SmIVBUs3TeQWk8sPhaP2Zi GRHxCnI8mZDyCXCiVEqcHY SkLPRiksD7kQ56KScxswK3 gLQvw5Lbf31gh648eT8koG QqFEM2BIXnWSGwcVKvXYDb OTE7ZEXcvGUkR9m6YoBogE HnO1J5BpLxyIYxF2Z3XoJd wROvH6U8NfBizRVjCWDcwW QsJu6olSSnmJUexo5rsv77 CDL8f9VehGhxSLI5GHN2Jv SxIs7dgZWyGDPxGSIfkIJo LENtPH3jdVVlNQIlbU5lqq xjXHBnYnJkcmhlYWRccGdi mkReTe8dxRqoBIX8FIouG3 ekgX8oNeW5AHhrL6zjwY0w IAo8ECrniDA5PXOexD9rXC 3hdoziu7dwAeDhAQ8oszwq i6lzDeBrBY6ajey1c0gxDn PpJV7bhedlt6vgAlWnGLyr MNIrjpaqZKMnw1FqvnvqFM Pjw7EvP0HoaNtlW13rhRox A61oVIPneZcztP4omMxhrA 5cZjBcZnMyNFxwYXJkXHBs YWluXGYxXGZzMjBcbGFuZz EwMzNcaGljaFxmMVxkYmNo WVJvLCcrB3pbZtMfVaVhTJ BBLiBSZWNlaXZlZCBpbiBm k2WbIFtscoTaVEJquVYlMT dpdGggdGhlIHBhdGllbnRc O1Y8niDpSW0yXJJgZGMrS1 EaOJNbF78zLHRquC2uQXGw IK5nHOUmd3YhsyDfndnfR2 1ii01trO4hoADiURHtHPRc l47hoVC1inToNxYlGHFuAG QeVB3gUHNrbmMaq9Y8CRSa x6V9CCHpKTUtbLIorzuyVH 22MKyoRT79MOihAS5kLXLu DvLYdCPwz3OvP5edKC6scE Ykw7NfhSj4zBOcZOccQWYb oP5yzP5cSQLeJUrvsaGocK luZSBCLiBSZWNlaXZlZCBp psEft8HxMPlrmuJsSKCdiV VkIHdpdGggdGhlIHBhdGll jtCcR8Q6ybGeEZ8bRXEfRZ UqU1FpAWCoS40xTHAiqJ6n SQSvOW0mZWMhwQhls9beNY WbvW0hJBGqoYpcLwKlefGp Y23pk0zvnTShg4VxYnZhwC PrILIaf6BfoKTlIGAnjtnr b70fkGC2dENopAKnysGiR2 adLnDvwhAltPmsKNXao82v FG06XLqnCJ1mVIslMB6bYE BeOGNsUWAqGUK3JWUlMfH3 IDAuMiBjbSBhbmQgbWVhc3 BzoB7hQRSiFkG2YXYrHhA0 UMDcJkYwaNWpvtNmL3wyLX birVUxAYAiAVQgyAWyyK1w yoJtpxRqcXAhwRI2YMWvkO 4fyO73jfPkxrVQJW4sfGoc KTtaaW3sYETmSEBoX3Jeun YgVEpmYWLlyt1khAnaFLkk GxNyXCKdg1j5kMM3xMKfpN H9lJPkzWclVbVhJV1ylBIt HY6sUJozCBitokVwu0FsUL 59xTVgohWjyhZuJqgdb0Op bBBhOjwnVRHdTKDat47xcM Y6lzByXjY9SBXtTQEsucJi ZtZ4GO2esEmlaxOir4K3XN Ulu2D4RWNgKW1jhM4jXPmx IHNpemUgZnJvbSAwLjMgeC XeGpHukGEhNcHdX69xsQ9m RU96AOysKW3uVDzjNG2uTV NtIGFuZCBtZWFzdXJpbmcg VX2dPVutYP59SMtnLC9fWW KaNZtsNJGrM3WrP6G2JW0x VGhlIHNwZWNpbWVuIGlzIH P2Ga0viELgFCXirkH8p8Ac AIpnJOPgFhdfeJ9uJSkfli HwK9aFSALuac1= MICROSCOPIC DESCRIPTION x4dmrZOzZFNyuWK5VtSmVR (test code = 3371) Kjq1hki8VynMWvaPKcTLet dDBevoXzsy10yHF4gF57EF 2vIZKtGuL4UQMuaqF0Ufm7 IONmPLEjoWFcV013z7jcv4 udjqKaxVG0rNmoNAJumtzw CtZ5KRrvVBGwehmzLLs5WO fvHHBpjOS1UBRamQWfT1Rr MUOgCL4kjpy4UZL2WOsgYQ IeXiF1BUShvZMfJWUgnGye BVhck878XZS0HbCpSSUvdt EyuDeuyF3jGrWgHJDUKJHk CQ4zOYmgU0vlZ8XjSJQzPZ ueyCiiw5rbTT7fWD6xmIli fdGqM6ndhRUmrEZghzDeWv nrER5qQRPnqagiLBUoUa4i Wa4em3qlvtjwoLKpltQxnU 7yoIHegLI5uL0xDNOgfuHf a4IyrsCsMQ2uvNIswGJzgI XnTRW2f4NpEOKjMMPavwXp NGbrF00zmcJ8OLjtPUHfMI 3hNJ5uCSgrsAugz2HpB7Lv cuSfvOWjj67sF4VedMSmbt VornPme0RihkCymcZbd4C9 zG8cRBI8TBhldd8wYYyuVG J9 [facility] [id number] 18:24:44Surgical Pathology Report Case: [id number] Authorizing Provider: Charo Wise MD Collected: 01/09/2022 11:31 AM Ordering Location: [facility] Endoscopy Received: 01/09/2022 03:51 PM Services [...] ROUTINE STAINS Signing Pathologist Direct Phone Line: [phone] signed by Evelin Wharton MD on 01/12/2022 at 6:24 [id number] refl ux disease, polyp of colonA. Polyp, colon-right/ascendingB. Polyp, colon- sigmoidC. Biopsy, gastric, randomA. Received in formalin labeled with the patient's name, medical record number and "ascending colon polyp" and consists of a piece of vazquez soft tissue measuring 0.5 x 0.4 x 0.2 cm. The specimen is s ubmitted in toto in A1.B. Received in formalin labeled with the patient's name, medical record number and "sigmoid colon polyp" and consists of 3 pieces of vazquez- pink soft tissue ranging in size from 0.5x 0.2 x 0.2 cm to 0.5 x [...] 0.2 cm in aggregate. The specimen is submittedin toto in C1.KHHA-B. No high- grade dysplasia or malignancy is identified. C. No significant inflammation, intestinal metaplasia, dysplasia or malignancy is seen. No Helicobacter microorganisms are seen on routine stains.POC-Glucose [id number] 13:54:18 Test Item Value Reference Range Interpretation Comments POC-Glucose Meter (test 133 mg/dL 70-110 H : TE STED AT [facility] code = 1538) [address] [facility], [facility] 30: Order Checker Packer Processer/Techni miguelina ID = [id number] for Marybel Earl Lab Interpretation (test Abnormal code = 79294-7) [facility] [id number] 13:54:18 Test Item Value Reference Range Interpretation Comments POC-Glucose Meter (test 133 mg/dL 70-110 H : TE STED AT [facility] code = 1538) [address] [facility], 770 30: Order Checker Packer Processer/Techni miguelina ID = [id number] for Marybel Earl Lab Interpretation (test Abnormal code = 71036-5) [facility] [id number] 13:54:18 Test Item Value Reference Range Interpretation Comments POC-GLUCOSE METER 133 mg/dL 70-110 H : TESTED A T [facility] 6720 (BEAKER) (test code = [facility], 1538) [address]: Order Checker Packer Processer/Techni miguelina ID = [id number] for Marybel Pina POCT-GLUCOSE [id number] 10:12:16 Test Item Value Reference Range Interpretation Comments POC-GLUCOSE METER 135 mg/dL 70-110 H : TESTED A T [facility] 6720 (BEAKER) (test code = [facility], 1538) [address]38[address]: Order Checker Packer Processer/Techni miguelina ID = [id number] for MAYELA BROWNING SARS-CoV2/RT-PCR (Asymptomatic ONLY)2022-01-09 09:03:44 Test Item Value Reference Interpretation Comments Range SARS-COV2/RT-PCR Negative Negative The SARS-Co V-2 (test code = target nucleic 48470-2) acids are not detected in thi s specimen. Negat rosales results do not preclude SARS-C oV-2 infection and should not be u sed as the sole bas is for patient management decisions. Nega tive results must be combined with clinical observations, patient history , and epidemiolog ical information. A false negative result may occu r if a specimen is improperly collected, transported or handled. This S ARS CoV-2 test is a rapid, real-doroteo e RT-PCR test intended for th e qualitative detection of nucleic acid fr om SARS-CoV-2 in a nasopharyngeal swab specimen colle kaylie from individual s suspected of COVID-19 by the ir healthcare provider. HEATHER (test code = This test has been HEATHER) authorized by FDA under an EUA for use by authorized laboratories. This test is only authorized for the duration of the declaration that circumstances exist justifying the authorization of emergency use of in vitro diagnostic tests for detection and/or diagnosis of COVID-19 under Section 564(b)(1) of the Federal Food, Drug and Cosmetic Act, 21 U.S.C. 360bbb-3(b)(1), unless the authorization is terminated or revoked sooner. Fact Sheet for Healthcare Providers: https://www.ipDatatel/Documents/Xp ert%20Xpress%20SAR S%20CoV-2/Fact%20S heets/302-3802%20S ARS-COV-2%20HEALTH CARE%20PROVIDERS%2 0FACT%20SHEET.pdf Fact Sheet for Healthcare Patients: https://www.ipDatatel/Documents/Xp ert%20Xpress%20SAR S%20CoV-2/Fact%20S heets/302-3801%20S ARS-COV-2%20PATIEN T%20FACT%20SHEET.p df Lab Interpretation Normal (test code = 33213-6) [facility]omatic ONLY[facility]2022-01-09 09:03:44 Test Item Value Reference Interpretation Comments Range SARS-COV2/RT-PCR Negative Negative The SARS-Co V-2 (test code = target nucleic 94470-7) acids are not detected in thi s specimen. Negat rosales results do not preclude SARS-C oV-2 infection and should not be u sed as the sole bas is for patient management decisions. Nega tive results must be combined with clinical observations, patient history , and epidemiolog ical information. A false negative result may occu r if a specimen is improperly collected, transported or handled. This S ARS CoV-2 test is a rapid, real-doroteo e RT-PCR test intended for th e qualitative detection of nucleic acid fr om SARS-CoV-2 in a nasopharyngeal swab specimen collec kaylie from individual s suspected of COVID-19 by the ir healthcare provider. HEATHER (test code = This test has been HEATHER) authorized by FDA under an EUA for use by authorized laboratories. This test is only authorized for the duration of the declaration that circumstances exist justifying the authorization of emergency use of in vitro diagnostic tests for detection and/or diagnosis of COVID-19 under Section 564(b)(1) of the Federal Food, Drug and Cosmetic Act, 21 U.S.C. 360bbb-3(b)(1), unless the authorization is terminated or revoked sooner. Fact Sheet for Healthcare Providers: https://www.ipDatatel/Documents/Xp ert%20Xpress%20SAR S%20CoV-2/Fact%20S heets/302-3802%20S ARS-COV-2%20HEALTH CARE%20PROVIDERS%2 0FACT%20SHEET.pdf Fact Sheet for Healthcare Patients: https://www.ipDatatel/Documents/Xp ert%20Xpress%20SAR S%20CoV-2/Fact%20S heets/302-3801%20S ARS-COV-2%20PATIEN T%20FACT%20SHEET.p df Lab Interpretation Normal (test code = 37399-4) [facility])2022-01-09 09:03:44 Test Item Value Reference Range Interpretation Comments SARS-COV2/RT-PCR Negative Negative The SARS-Co V-2 target (test code = nucleic acids a re not 1526448) detected in thi s specimen. Negative result [...] This SARS CoV-2 test is a rapid, real-time RT-PC R test intended for th e qualitative detection [...] Food, Drug and Cosmetic Act, 21 U.S.C. 360bbb-3(b)(1), unless the authorization is terminated or revoked sooner. Fact Sheet for Healthcare Providers: https://www.Blued m/Documents/Xpert%20Xpress%20SARS%20CoV-2/Fact%20Sheets/3023802%42XVCE-GFG-6%20 HEALTHCARE%20PROVIDERS%20FACT%20SHEET.pdf Fact Sheet for Healthcare Patients: https://www.Selvz/Documents/Xpert%20Xp ress%20SARS%20CoV-2/Fact%20Sheets/3023801%12DLWV-TLF-7%20PATIENT%20FACT%20SHEET .[id number] 14:57:00 Test Item Value Reference Range Interpretation Comments SURG (test code = SURG) RUN DATE: 08/26/20 [facility] PAGE 1 RUN TIME: 1457 Specimen Inquiry RUN USER: INTERFACE PATIENT: PEPE ACOSTA LOC: ANDI U #: [id number] AGE/SX: 55/F ROOM: RE08/23/20[facility] DR: Tapan Harper MD : 69 BED: DIS: STATUS: [facility] TLOC: SPEC #: [id number] RECD: 08/23/20 STATUS: KRISTIN RELang #: [id number] HIRO: 08/23/[address] [facility] [address]: Tapan Harper MD ENTERED: 08/23/20 SP TYPE: SURG OTHR DR: Jaron Irving DO ORDERED: SURG PATH LVL 02/01 COPIES TO: Jaron Irving [place] [address] [place] [address] Tapan Harper MD [address], [place] [address] HISTOLOGY: TISSUE ID BLK PCS DIANE LEV [...] - R10.84; K59.00 CPT CODES CPT CODE(S): 21602K7 , , , , , , FINAL DIAGNOSIS A. Colon, right, biopsy: COLONIC MUCOSA WITH NO PATHOLOGIC DIAGNOSIS B. Colon, mid, biopsy: COLONIC MUCOSA WITH NO PATHOLOGIC DIAGNOSIS CONTINUED ON NEXT PAGE RUN DATE: 08/26/20 [facility] PAGE 2 RUN TIME: 1457 Specimen Inquiry RUN USER: INTERFACE SPEC #: [id number] PATIENT: PEPE ACOSTA #[id number] (Continued) FINAL DIAGNOSIS (Continued) C. Colon, left, [...] all as C. ba/nr Grossing performed at [facility] Pathology, [address] [place] [address], [address], [place], [place] [address]. Clamp Truck Driver: Leeroy Jimenes M.D. MICROSCOPIC DESCRIPTION A. Right [...] 08/26/20 1457 END OF REPORT GLUCOSE BEDSIDE [id number] 08:29:00 Test Item Value Reference Range Interpretation Comments GLUCOSE BEDSIDE TESTING (test code 156 mg/dL 70-110 H = GLUBED) BASIC METABOLIC [id number] 12:40:00 Test Item Value Reference Range Interpretation [...] CA) 9.0 MG/DL 8.5-10.1 N BASIC METABOLIC [id number] 12:37:00 Test Item Value Reference Range Interpretation [...] 9.0 MG/DL 8.5-10.1 N COVID 19 INHOUSE [id number] 12:37:00 Test Item Value Reference Range Interpretation Comments COVID 19 INHOUSE AG NEGATIVE Negative Per manu facturer, (test code = negative result s should [id number]) be treated aspr esumptive and, if inconsi stent with clinical signs andsymptoms or necessary for patient man agement, should betested with an alternative mol ecular assay. Negative resultsdo not preclude SA RS-CoV-2 infection and s hould not be usedas the s ole basis for patient man agement decisions. Nega tive results should be considered in t he context of apatient's r ecent exposures, hist ory, presence of cli nicalsigns and symptoms co nsistent with COVID-19. CBC W/AUTO [id number] 12:23:00 Test Item Value Reference Range Interpretation [...] (test code NO DIFF/SCN CRITERIA = SILVER) [id number] 15:34:00 RUN DATE: 12/13/19 [facility] PAGE 1 RUN TIME: 1535 Specimen Inquiry RUN USER: INTERFACE ----- -------PATIENT: PEPE ACOSTA LOC: [place]ADYS U #: [id number] AGE/SX: 54/F ROOM: RE12/11/19[facility] DR: Cas Rodriguez MD : 69 BED: DIS: STATUS: [facility] TLOC: SPEC #: [id number] RECD: 12/11/19-1052 STATUS: KRISTIN REQ #: [id number] HIRO: 12/11/[facility] [address]: Cas Rodriguez MD ENTERED: 12/11/19 SPTYPE: SURG OTHR DR: Jaron Irving DO ORDERED: SURG PATH LVL 01/31 COPIES TO: Jaron Irving DO [address] [place] [address] Cas Rodriguez MD [address] [place] [address] HISTOLOGY: TISSUE ID BLK PCS DIANE LEV PROCEDURE DISPOSITION ____ ___ ___ ___ GASTRIC ANTRUM A 1 3 GASTRIC ANTRUM B 1 3 PROCEDURES: SURG PATH LVL 4 (12/11/191053) TISSUES: A. GASTRIC ANTRUM - GASTRIC BIOPSY B. GASTRIC ANTRUM - DISTAL GASTRIC BIOPSY CLINICAL HISTORY EPIGASTRIC PAIN -R10.13; NAUSEA -R11.0; VOMITING -R11.10 CPT CODES CPT CODE(S): 04191I2 , , , , , , FINAL DIAGNOSIS A. Stomach, biopsy: MILD CHRONIC GASTRITIS NEGATIVE FOR INTESTINAL METAPLASIA, DYSPLASIA, OR MALIGNANCY NEGATIVE FOR HELICOBACTER PYLORI ORGANISMS B. Stomach, distal, biopsy: MILD CHRONIC GASTRITIS NEGATIVE FOR INTESTINAL METAPLASIA, DYSPLASIA, OR MALIGNANCY CONTINUED ON NEXT PAGE RUN DATE: 12/13/19 [facility] PAGE 2 RUN TIME: 1535 Specimen Inquiry RUN USER: INTERFACE SPEC #: [facility]:[id number] PATIENT: PEPE ACOSTA #[id number] (Continued)------ ------ FINAL DIAGNOSIS (Continued) NEGATIVE FOR HELICOBACTER PYLORI ORGANISMS GROSS DESCRIPTION A. Gastric biopsy. Received in formalin is a vazquez tissue fragment, 0.5 cm, all as A. B. Distal gastric biopsy. Received in formalin is a vazquez tissue fragment, 0.3 cm, all as B. shivam/nr Grossing performed at [facility] Pathology, [address] [place] [address], [address], [place] [address]. Clamp Truck Driver: Leeroy Jimenes M.D. MICROSCOPIC DESCRIPTION A. Gastric biopsy. Sections demonstrate gastric mucosa with mild chronic inflammation. No dysplasia or malignancy is identified. No evidence of intestinal metaplasia is seen. No features of Helicobacter pylori organisms are identified. B. Distal gastric biopsy. Sections show gastric mucosa with mild chronic inflammation. No dysplasia or malignancy is identified. No evidence of intestinalmetaplasia is seen. No features of Helicobacter pylori organisms are identified. Signed SIGNATURE ON FILE KellyCarlos M 12/13/19 1534 END OF REPORT GLUCOSE BEDSIDE [id number] 06:17:00 Test Item Value Reference Range Interpretation Comments GLUCOSE BEDSIDE TESTING (test code 170 mg/dL 70-110 H = GLUBED) UR HCG [id number] 11:12:00 Test Item Value Reference Range Interpretation Comments UR HCG QUAL (test code = HCGQLU) NEGATIVE NEGATIVE
[2022-09-03 04:27] LABS: Absolute Lymphocytes (CBC) 0.9 K/uL (0.7-4.9); Hematocrit 44.7 % (36.0-45.0); MCV 93.2 fL (80-100); MPV 8.8 fL (7.6-11.3); RBC Red Blood Cell Count 4.79 M/uL (3.86-4.86)
[2022-09-03 04:44] LABS: Protime INR 1.16
[2022-09-03] MEDS ORDERED: ACETAMINOPHEN 325 MG TABLET ONE (04:50)
[2022-09-03 05:09] LABS: Albumin 3.6 g/dL (3.4-5.0); Bilirubin Total 0.4 mg/dL (0.2-1.0); Potassium 3.4 mmol/L (3.5-5.1); Protein, Total 7.5 g/dL (6.4-8.2)
[2022-09-03] MEDS ORDERED: METHYLPREDNISOLONE 125 MG INJ ONE (05:33)
--- NOTE | 2022-09-03 05:33 | ER ---
[facility] Name: Maria De Jesus Acosta Age: 57 yrs Sex: Female : 1965 Arrival Date: 09/03/2022 Time: 03:05 Bed 26 Private MD: Diagnosis: Influenza due to identified novel influenza A virus;COPD/ Chronic obstructive pulmonary disease with (acute) exacerbation;Fever, unspecified Presentation: 09/03 03:12 Chief complaint: EMS states: pt states her pts daughter tested positive for flu two aa9 days ago, pt states she had a fever and not feeling well today, home health nurse advised to visit the dr. she is 2L NC due to O2 sat 90 on room air. Coronavirus screen: Vaccine status: Patient reports receiving the 2nd dose of the covid vaccine. Ebola Screen: No symptoms or risks identified at this time. Risk Assessment: Do you want to hurt yourself or someone else? Patient reports no desire to harm self or others. Onset of symptoms was September 03, 2022. 03:12 Method Of Arrival: EMS: [facility] aa9 03:12 Acuity: EMERALD 3 aa9 03:18 Care prior to arrival: Glucose check: 243. aa9 Triage Assessment: 03:16 General: Appears uncomfortable, obese, Behavior is calm, cooperative, appropriate for aa9 age. Pain: Complains of pain in headache, L ear pain, backache, chest pain Pain currently is 8 out of 10 on a pain scale. EENT: No signs and/or symptoms were reported regarding the EENT system. Neuro: Level of Consciousness is awake, alert, obeys commands, Oriented to person, place, time, situation. Cardiovascular: Patient's skin is warm and dry. Respiratory: Airway is patent Respiratory effort is even, unlabored. GI: Abdomen is obese. : No signs and/or symptoms were reported regarding the genitourinary system. Derm: Skin is intact. Musculoskeletal: Reports pain in left ear, back and chest. Historical: - Allergies: 03:14 Doxycycline; aa9 03:14 Reglan; aa9 - PMHx: 03:14 Asthma; CHF; COPD; Crohn's; Diabetes - NIDDM; Hypertension; aa9 - PSHx: 03:14 Appendectomy; Ligation of fallopian tube; shoulder; Cholecystectomy; aa9 - Immunization history:: Client reports receiving the 2nd dose of the Covid vaccine. - Social history:: Smoking status: Patient denies any tobacco usage or history of. - Family history:: not pertinent. - Hospitalizations: : No recent hospitalization is reported. Assessment: 03:30 General: Appears in no apparent distress. uncomfortable, Behavior is calm, cooperative, jb4 appropriate for age. Pain: Denies pain. Neuro: Level of Consciousness is awake, alert, obeys commands, Oriented to person, place, time, situation. Cardiovascular: Patient's skin is warm and dry. Respiratory: Airway is patent Respiratory effort is even, labored, Respiratory pattern is regular, symmetrical, Breath sounds with wheezes bilaterally. GI: No signs and/or symptoms were reported involving the gastrointestinal system. : No signs and/or symptoms were reported regarding the genitourinary system. EENT: No signs and/or symptoms were reported regarding the EENT system. Derm: Skin is intact, Skin is pink, warm \T\ dry. 05:19 Reassessment: lactate 3.4, provider notified. vc1 07:05 Reassessment: No changes from previously documented assessment. Report received from [facility] shift leader RN. 08:15 General: Appears uncomfortable, ill, Behavior is calm, cooperative, appropriate for 3 age. Pain: Denies pain. Neuro: No deficits noted. Cardiovascular: No deficits noted. Respiratory: Airway is patent Trachea midline Respiratory effort is even, unlabored, Respiratory pattern is symmetrical, tachypnea Breath sounds are clear in right upper lobe and left upper lobe Breath sounds are diminished in right middle lobe, left lower lobe and right lower lobe. 09:15 Reassessment: No changes from previously documented assessment. Patient and/or family ll1 updated on plan of care and expected duration. Pain level reassessed. Patient is alert, oriented x 3, equal unlabored respirations, skin warm/dry/pink. 10:15 Reassessment: No changes from previously documented assessment. Patient and/or family ll1 updated on plan of care and expected duration. Pain level reassessed. Patient is alert, oriented x 3, equal unlabored respirations, skin warm/dry/pink. 10:52 Reassessment: No changes from previously documented assessment. Report given to Niharika [facility] floor RN. Vital Signs: 03:12 BP 124 / 73; Pulse 114; Resp 19 S; Temp 101.2(O); Pulse Ox 92% on 2 lpm NC; Weight aa9 147.42 kg (R); Height 5 ft. 3 in. (160.02 cm) (R); Pain 8/10; 05:00 BP 122 / 59; Pulse 122; Resp 24; Pulse Ox 93% on 3 lpm NC; jb4 06:00 BP 137 / 68; Pulse 131; Resp 24; Temp 99.6(O); Pulse Ox 92% on 5 lpm NC; jb4 07:05 BP 143 / 80; Pulse 108; Resp 25; Pulse Ox 95% on BiPAP; ll1 03:12 Body Mass Index 57.57 (147.42 kg, 160.02 cm) aa9 06:00 Pt desat to 85 on home O2 of 3 L, provider notified. jb4 ED Course: 03:05 Patient arrived in ED. ag3 03:08 Juanito Santillan MD is Attending Physician. rn 03:14 Triage completed. aa9 03:14 Arm band placed on. aa9 03:52 Chest Single View XRAY In Process Unspecified. EDMS 04:48 Lee Santos, RN is Primary Nurse. jb4 05:32 Rosalio Smith MD is Hospitalizing Provider. rn Administered Medications: 06:24 Discontinued: NS 0.9% 500 ml IV at bolus once jb4 04:54 Drug: Tylenol 650 mg Route: PO; jb4 06:25 Follow up: Response: No adverse reaction; Marked relief of symptoms; Temperature is jb4 decreased 05:44 Drug: Xopenex (levalbuterol) (3) 1.25 mg Route: Inhalation; jb4 08:08 Follow up: Response: No adverse reaction ll1 05:44 Drug: NS 0.9% 500 ml Route: IV; Rate: bolus; Site: right forearm; jb4 08:08 Follow up: Response: No adverse reaction; IV Status: Completed infusion; IV Intake: ll1 400ml 05:45 Drug: SOLU-Medrol (methylPrednisoLONE) 125 mg Route: IVP; Site: right forearm; jb4 08:08 Follow up: Response: No adverse reaction ll1 06:25 Drug: Magnesium Sulfate 1 grams Route: IVPB; Infused Over: 1 hrs; Site: right forearm; jb4 07:10 Follow up: Response: No adverse reaction; IV Status: Completed infusion; IV Intake: ll1 100ml Intake: 07:10 IV: 100ml; Total: 100ml. ll1 08:08 IV: 400ml; Total: 500ml. ll1 Outcome: 05:33 Decision to Hospitalize by Provider. rn 18:27 Patient left the ED. jl7 Signatures: Dispatcher [employer] EDMS Juanito Santillan MD MD rn Bryson, James RN RN jb4 Elmer Park RN RN jl7 Melissa Uriostegui3 Idalia Reyes RN RN ll1 Brigitte Perez RN RN vc1 Amber Weathers, RN RN aa9 Corrections: (The following items were deleted from the chart) 05:51 05:00 BP 122 / 59; Pulse 122bpm; Resp 19bpm; Pulse Ox 93% 2 lpm Nasal Cannula; jb4 jb4 06:12 03:30 Respiratory: Airway is patent Respiratory effort is even, labored, Respiratory jb4 pattern is regular, symmetrical, jb4 06:14 05:00 BP 122 / 59; Pulse 122bpm; Resp 24bpm; Pulse Ox 93% 2 lpm Nasal Cannula; jb4 jb4 06:14 06:00 BP 137 / 68; Pulse 92bpm; Resp 24bpm; Pulse Ox 92% 5 lpm Nasal Cannula; Temp jb4 99.6F Oral; Pt desat to 85 on home O2 of 3 L, provider notified.; jb4 08:06 08:05 BP 143 / 80; Pulse 108bpm; Resp 25bpm; Pulse Ox 95% BiPAP; ll1 ll1
--- NOTE | 2022-09-03 05:33 | EDPHYS ---
Physician Documentation [facility] Name: Maria De Jesus Acosta Age: 57 yrs Sex: Female : 1965 Arrival Date: 09/03/2022 Time: 03:05 Bed 26 Private MD: ED Physician Juanito Santillan HPI: 09/03 03:54 This 57 yrs old Female presents to ER via EMS with complaints of fever, sob. rn 03:54 The patient reports fever, that was measured at 102 degrees Fahrenheit. Onset: The rn symptoms/episode began/occurred 2 day(s) ago. Modifying factors: there are no obvious modifying factors. Associated signs and symptoms: Pertinent positives: chills, cough, runny nose, shortness of breath, Pertinent negatives: abdominal pain, altered mental status, chest pain. Severity of symptoms: At their worst the symptoms were moderate in the emergency department the symptoms are unchanged. The patient has not experienced similar symptoms in the past. The patient has not recently seen a physician. Reports granddaughter diagnosed with flu yesterday. . Historical: - Allergies: 03:14 Doxycycline; aa9 03:14 Reglan; aa9 - PMHx: 03:14 Asthma; CHF; COPD; Crohn's; Diabetes - NIDDM; Hypertension; aa9 - PSHx: 03:14 Appendectomy; Ligation of fallopian tube; shoulder; Cholecystectomy; aa9 - Immunization history:: Client reports receiving the 2nd dose of the Covid vaccine. - Social history:: Smoking status: Patient denies any tobacco usage or history of. - Family history:: not pertinent. - Hospitalizations: : No recent hospitalization is reported. ROS: 03:54 Constitutional: + fever and chills Eyes: Negative for injury, pain, redness, and rn flight, Cardiovascular: Negative for chest pain, palpitations, and edema, Respiratory: + sob and cough Abdomen/GI: Negative for abdominal pain, and constipation, MS/Extremity: Negative for injury and deformity, Skin: Negative for injury, rash, and discoloration, Neuro: Negative for numbness, tingling, and seizure. Exam: 03:54 Constitutional: Overweight female, audible wheezing Head/Face: Normocephalic, rn atraumatic. Eyes: Periorbital areas with no swelling, redness, or edema. ENT: No stridor, Dry MM Cardiovascular: Tachycardic, regular. No pulse deficits. Respiratory: + wheezing bilaterally, mild tachypnea Abdomen/GI: Soft, non-tender Skin: Warm, dry MS/ Extremity: Pulses equal, no cyanosis. Neuro: Awake and alert, GCS 15 05:22 ECG was reviewed by the Attending Physician. rn Vital Signs: 03:12 BP 124 / 73; Pulse 114; Resp 19 S; Temp 101.2(O); Pulse Ox 92% on 2 lpm NC; Weight aa9 147.42 kg (R); Height 5 ft. 3 in. (160.02 cm) (R); Pain 8/10; 05:00 BP 122 / 59; Pulse 122; Resp 24; Pulse Ox 93% on 3 lpm NC; jb4 06:00 BP 137 / 68; Pulse 131; Resp 24; Temp 99.6(O); Pulse Ox 92% on 5 lpm NC; jb4 07:05 BP 143 / 80; Pulse 108; Resp 25; Pulse Ox 95% on BiPAP; ll1 03:12 Body Mass Index 57.57 (147.42 kg, 160.02 cm) aa9 06:00 Pt desat to 85 on home O2 of 3 L, provider notified. jb4 MDM: 03:08 Patient medically screened. rn 05:30 Differential diagnosis: viral Infection, bacterial infection, URI, pneumonia. Data rn reviewed: vital signs, nurses notes, lab test result(s), radiologic studies, plain films, and as a result, I will admit patient. Counseling: I had a detailed discussion with the patient and/or guardian regarding: the historical points, exam findings, and any diagnostic results supporting the discharge/admit diagnosis, lab results, radiology results, the need for further work-up and treatment in the hospital. Response to treatment: the patient's symptoms have mildly improved after treatment, and as a result, I will admit patient. Admission orders: after a detailed discussion of the patient's condition and case, the admit orders are written by me. ED course: Pt with severe sepsis, elevated lactate, but secondary to viral source of influenza. No abx indicated for this viral illness. Some fluids given but not full 30ml/kg bolus given lactate is < 4 and no signs of shock, as well as CHF and CXR already shows pulmonary edema. . 11/03 03:18 Order name: Blood Culture Adult (2) rn 09/03 03:18 Order name: CBC with Diff; Complete Time: 05:21 rn 09/03 03:18 Order name: CMP; Complete Time: 05:21 rn 09/03 03:18 Order name: Lactate; Complete Time: 05:21 rn 09/03 03:18 Order name: Protime (+inr); Complete Time: 05:21 rn 09/03 03:18 Order name: Ptt, Activated; Complete Time: 05:21 rn 09/03 03:18 Order name: Flu; Complete Time: 05:21 rn 09/03 03:18 Order name: SARS-COV-2 RT PCR (Document "Date of Onset" if Symptomatic); Complete Time: rn 05:28 09/03 04:46 Order name: Glucose, Ancillary Testing; Complete Time: 05:21 EDID 09/03 05:20 Order name: Lactate: repeat at 6:35 vc1 09/03 10:09 Order name: CBC with Automated Diff EDMS 09/03 10:09 Order name: CBC with Automated Diff EDMS 09/03 03:18 Order name: Chest Single View XRAY rn 09/03 10:09 Order name: Comprehensive Metabolic Panel EDMS 09/03 10:09 Order name: Comprehensive Metabolic Panel EDMS 09/03 10:09 Order name: Lipid Profile EDMS 09/03 10:09 Order name: Lipid Profile EDMS 09/03 10:09 Order name: Magnesium EDMS 09/03 10:09 Order name: Magnesium EDMS 09/03 10:09 Order name: NT PRO-BNP EDMS 09/03 10:09 Order name: NT PRO-BNP EDMS 09/03 10:09 Order name: Phosphorus EDMS 09/03 10:09 Order name: Phosphorus EDMS 09/03 10:12 Order name: Chest Single View EDMS 09/03 10:13 Order name: Procalcitonin EDMS 09/03 15:44 Order name: Glucose, Ancillary Testing EDMS 09/03 03:18 Order name: Accucheck; Complete Time: 04:41 rn 09/03 03:18 Order name: Cardiac monitoring; Complete Time: 04:41 rn 09/03 03:18 Order name: EKG - Nurse/Tech; Complete Time: 04:41 rn 09/03 03:18 Order name: IV Saline Lock - Large Bore; Complete Time: 04:41 rn 09/03 03:18 Order name: Labs collected and sent; Complete Time: 04:41 rn 09/03 03:18 Order name: O2 Per Protocol; Complete Time: 05:12 rn 09/03 03:18 Order name: O2 Sat Monitoring; Complete Time: 05:12 rn 09/03 03:18 Order name: Vital Signs; Complete Time: 05:12 rn 09/03 07:55 Order name: EKG Electrocardiogram EDID 09/03 10:09 Order name: CONS Physician Consult EDID 09/03 10:09 Order name: Regular EDMS EC:22 Rate is 108 beats/min. Rhythm is regular. QRS Mayo is Normal. RI interval is normal. rn QRS interval is normal. QT interval is normal. No Q waves. T waves are Normal. No ST changes noted. Clinical impression: Sinus tachycardia. Interpreted by me. Reviewed by me. Administered Medications: 06:24 Discontinued: NS 0.9% 500 ml IV at bolus once jb4 04:54 Drug: Tylenol 650 mg Route: PO; jb4 06:25 Follow up: Response: No adverse reaction; Marked relief of symptoms; Temperature is jb4 decreased 05:44 Drug: Xopenex (levalbuterol) (3) 1.25 mg Route: Inhalation; jb4 08:08 Follow up: Response: No adverse reaction ll1 05:44 Drug: NS 0.9% 500 ml Route: IV; Rate: bolus; Site: right forearm; jb4 08:08 Follow up: Response: No adverse reaction; IV Status: Completed infusion; IV Intake: ll1 400ml 05:45 Drug: SOLU-Medrol (methylPrednisoLONE) 125 mg Route: IVP; Site: right forearm; jb4 08:08 Follow up: Response: No adverse reaction ll1 06:25 Drug: Magnesium Sulfate 1 grams Route: IVPB; Infused Over: 1 hrs; Site: right forearm; jb4 07:10 Follow up: Response: No adverse reaction; IV Status: Completed infusion; IV Intake: ll1 100ml Disposition Summary: 09/03/22 05:33 Hospitalization Ordered Hospitalization Status: Inpatient Admission rn Provider: Rosalio Smith rn Location: Telemetry/MedSurg (Inpatient) rn Condition: Stable rn Problem: new rn Symptoms: have improved rn Bed/Room Type: Standard rn Room Assignment: 408(09/03/22 15:13) eb Diagnosis - Influenza due to identified novel influenza A virus rn - COPD/ Chronic obstructive pulmonary disease with (acute) exacerbation rn - Fever, unspecified rn Forms: - Medication Reconciliation Form rn - SBAR form rn provider relations time excluding procedures: 06:11 Critical care time: Bedside Care: 35 minutes. Total time: 35 minutes rn Signatures: Dispatcher [employer] EDMS Juanito Santillan MD MD rn Bryson, James RN RN jb4 Renita Garland Aylin RN RN aa9 Idalia Reyes RN ll1 Corrections: (The following items were deleted from the chart) 05:23 05:21 LACTATE+C.LAB.BRZ ordered. EDMS EDMS 06:28 03:19 Urine Culture+BA.LAB.BRZ ordered. EDMS EDMS 06:28 03:19 UA MICROSCOPIC+U.LAB.BRZ ordered. EDMS EDMS 15:13 05:33 rn eb
[2022-09-03] MEDS ORDERED: LEVALBUTEROL 1.25 MG/3 ML NEB ONE ×2 (05:34→05:37)
[2022-09-03] MEDS ORDERED: NA CHLORIDE 0.9% 500 ML ONE (05:34)
[2022-09-03] MEDS ORDERED: MAGNESIUM SULFATE 1 gm IVPB 1 GM/100 ML BAG IV ONE (06:17)
--- NOTE | 2022-09-03 09:48 | P.HP ---
Certification for Inpatient Patient admitted to: Inpatient With expected LOS: >2 Midnights Patient will require the following post-hospital care: None Practitioner: I am a practitioner with admitting privileges, knowledge of patient current condition, hospital course, and medical plan of care. Services: Services provided to patient in accordance with Admission requirements found in Title 42 Section 412.3 of the Code of Federal Regulations Patient History Date of Service: 09/03/22 Reason for admission: Shortness of breath History of Present Illness: Patient is a 57-year-old female who is morbidly obese and has a history of Crohn's disease and is on immunosuppressant who comes into the hospital with shortness of breath. She states that her grandson was recently diagnosed with influenza. She has been taking care of him and she was not aware that he had the influenza. She started coughing and getting short of breath and felt like she had a lot of pressure on her chest. She tried to wait it out at home hoping she would get better but her symptoms worsen so she came into the emergency room. In the ER she was seen by it ER physician and noted to be hypoxic. She was started on BiPAP as she has a history of obstructive sleep apnea and congestive heart failure. She was given diuretics and started on Tamiflu. Patient is clinically feeling better. She will continue with antiviral therapy along with steroids. Continue with diuresing. We will wean her down on the oxygen. She does wear home oxygen and anticipate discharge over the next 24 to 48 hours. Allergies doxycycline Allergy (Mild, Verified 04/18/21 08:37) Nausea/Vomiting orange juice [[place] Juice] Allergy (Mild, Verified 04/18/21 08:37) Nausea/Vomiting metoclopramide HCl [From Reglan] Allergy (Verified 04/18/21 08:37) Unknown Home Medications: ALPRAZolam [Xanax*] 2 mg PO TIDP PRN 10/04/19 Albuterol Sulfate [Proair Hfa] 1 puff IH Q4HP PRN 10/04/19 Atorvastatin Calcium [Lipitor] 40 mg PO DAILY 10/04/19 Clonidine HCl [Catapres*] 0.2 mg PO TID 10/04/19 Colchicine [Colcrys *] 0.6 mg PO DAILY 10/04/19 Doxepin HCl [Sinequan*] 25 mg PO BEDTIME 10/04/19 Duloxetine HCl [Cymbalta] 30 mg PO DAILY 10/04/19 Fluticasone/Umeclidin/Vilanter [Trelegy Ellipta 100-62.5-25] 1 puff IH DAILY 10/04/19 Furosemide [Lasix*] 20 mg PO BID 10/04/19 Gabapentin 600 mg PO TID 10/04/19 Hum Insulin NPH/Reg Insulin Hm [Humulin 70-30 Vial] 80 unit SQ BREAKFAST 10/04/19 Hydralazine HCl [Apresoline] 100 mg PO TID 10/04/19 Hydrocodone 5/APAP 325 [[place] 5/325*] 1 tab PO Q6HP PRN 10/04/19 Liraglutide [Victoza 2-Ze] 1.8 mg SQ DAILY 10/04/19 Metformin HCl 1,000 mg PO BIDWM 10/04/19 Metoprolol Succinate [Toprol Xl] 100 mg PO BID 10/04/19 Montelukast [Singulair*] 10 mg PO DAILY 10/04/19 Pantoprazole [Protonix Tab*] 40 mg PO BID 10/04/19 Zolpidem Tartrate [Ambien*] 10 mg PO BEDTIME 10/04/19 lisinopriL [Lisinopril] 0.5 tab PO BID 10/04/19 Insulin NPH Hum/Reg Insulin Hm [Humulin 70-30 Vial] 70 unit SQ DAILY AT SUPPER 11/20/19 Albuterol Neb [Proventil 0.083% Neb Soln] 2.5 mg NEB [id number] #120 amp 08/06/22 Aspirin [Aspirin EC 81 MG] 81 mg PO DAILY #30 tab 08/06/22 Ipratropium Neb [Atrovent*] 0.5 mg NEB [id number] #120 amp 08/06/22 - Past Medical/Surgical History Diabetic: Yes -: lap band -: CHF -: HTN -: COPD -: Asthma -: CVA -: DM -: History of TIA -: sleep apnea -: Appendectomy -: cholecystectomy -: Miscarriage -: Ectopic -: -: Right wrist surgery, Left Shoulder surgery, Right knee surgery -: Lap. 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 - Family History Mother Medical History: Heart disease, Hypertension, Diabetes, Stroke, Cancer Father Medical History: Diabetes, Kidney disease Notes: leukemia - Social History Smoking Status: Former smoker Alcohol use: No CD- Drugs: No Caffeine use: Yes Review of Systems 10-point ROS is otherwise unremarkable Physical Examination - Vital Signs Temperature: 98 F Blood Pressure: 140/80 Pulse: 80 Respirations: 18 Pulse Ox (%): 95 - Physical Exam General: Alert, In no apparent distress, Oriented x3 HEENT: Atraumatic, PERRLA, Mucous membr. moist/pink, EOMI, Sclerae nonicteric Neck: Supple, 2+ carotid pulse no bruit, No LAD, Without JVD or thyroid abnormality Respiratory: Clear to auscultation bilaterally, Normal air movement Cardiovascular: Regular rate/rhythm, Normal S1 S2 Gastrointestinal: Normal bowel sounds, Soft and benign, Non-distended, No tenderness Musculoskeletal: No tenderness Integumentary: No rashes Neurological: Normal speech, Normal strength at 5/5 x4 extr, Sensation intact, Cranial nerves 3-12 intact, Normal affect Lymphatics: No axilla or inguinal lymphadenopathy - Studies Laboratory Data (last 24 hrs) 09/03/22 04:13: PT 12.8 H, INR 1.16, APTT 29.7 09/03/22 04:13: Sodium 134 L, Potassium 3.4 L, BUN 8, Creatinine 0.85, Glucose 248 H, Total Bilirubin 0.4, AST 131 H, ALT 124 H, Alkaline Phosphatase 112 09/03/22 04:13: WBC 6.40, Hgb 14.9, Hct 44.7, Plt Count 155 Microbiology Data (last 24 hrs): 09/03/22 04:20 Nasopharnyx Influenza Type A Antigen Screen - Final 09/03/22 04:20 Nasopharnyx Influenza Type B Antigen Screen - Final Assessment & Plan - Problems (Diagnosis) (1) Influenza A with pneumonia Current Visit: Yes Status: Acute (2) COPD exacerbation Onset Date: 11/03/16 Current Visit: No Status: Acute (3) Crohn's disease Current Visit: Yes Status: Acute (4) GERD (gastroesophageal reflux disease) Current Visit: No Status: Acute (5) Diabetes mellitus Onset Date: 05/21/16 Current Visit: No Status: Chronic Qualifiers: Diabetes mellitus type: type 2 Diabetes mellitus complication status: without complication (6) HTN (hypertension) Onset Date: 05/21/16 Current Visit: No Status: Chronic Qualifiers: Hypertension type: primary hypertension Qualified Code(s): I10 - Essential (primary) hypertension (7) Hyperlipidemia Current Visit: No Status: Chronic Qualifiers: Hyperlipidemia type: other hyperlipidemia Qualified Code(s): E78.49 - Other hyperlipidemia; E78.4 - Other hyperlipidemia (8) Morbid obesity Onset Date: 09/11/16 Current Visit: No Status: Chronic (9) SAMEER (obstructive sleep apnea) Current Visit: No Status: Chronic - Plan Plan: 1. Continue with antiviral 2. Awaiting culture 3. Repeat chest x-ray 4. CT scan of the chest if pneumonia 5. Appreciate pulmonary consultation 6. Continue with nebs as needed 7. O2 per protocol 8. Continue with gentle hydration 9. Repeat labs 10. GI and DVT prophylaxis Discharge Plan: Home Plan to discharge in: Greater than 2 days - Advance Directives Does patient have a Living Will: No Does patient have a Durable POA for Healthcare: No - Code Status/Comfort Care Code Status Assessed: Yes Code Status: Full Code Critical Care: No Time Spent Managing PTS Care (In Minutes): 45
[2022-09-03] MEDS ORDERED: ACETAMINOPHEN 500 MG TAB PO PRN (10:03)
[2022-09-03] MEDS ORDERED: ONDANSETRON 4 MG/2 ML VIAL IV PRN (10:03)
[2022-09-03] MEDS ORDERED: OSELTAMIVIR 75 MG CAP PO ONE (10:09)
[2022-09-03] MEDS: METHYLPREDNISOLONE 40 MG INJ IV SCH ×2 (12:00→20:59)
--- NOTE | 2022-09-03 12:39 | P.CNS ---
Date of Consult: 09/03/22 Reason for Consult: Respiratory distress Chief Complaint: Shortness of breath History of Present Illness: Patient is 57 years of age well known to me a minute with a two day history of worsening cough congestion and shortness of breath she was taking care of her grandchild is also sick and tested positive for influenza. Patient has a history of severe obstructive sleep apnea is compliant with her CPAP in addition to chronic shortness of breath to morbid obesity is not coughing up any phlegm no fever or chills Allergies doxycycline Allergy (Mild, Verified 04/18/21 08:37) Nausea/Vomiting orange juice [[place] Juice] Allergy (Mild, Verified 04/18/21 08:37) Nausea/Vomiting metoclopramide HCl [From Reglan] Allergy (Verified 04/18/21 08:37) Unknown Home Medications: ALPRAZolam [Xanax*] 2 mg PO TIDP PRN 10/04/19 Albuterol Sulfate [Proair Hfa] 1 puff IH Q4HP PRN 10/04/19 Atorvastatin Calcium [Lipitor] 40 mg PO DAILY 10/04/19 Clonidine HCl [Catapres*] 0.2 mg PO TID 10/04/19 Colchicine [Colcrys *] 0.6 mg PO DAILY 10/04/19 Doxepin HCl [Sinequan*] 25 mg PO BEDTIME 10/04/19 Duloxetine HCl [Cymbalta] 30 mg PO DAILY 10/04/19 Fluticasone/Umeclidin/Vilanter [Trelegy Ellipta 100-62.5-25] 1 puff IH DAILY 10/04/19 Furosemide [Lasix*] 20 mg PO BID 10/04/19 Gabapentin 600 mg PO TID 10/04/19 Hum Insulin NPH/Reg Insulin Hm [Humulin 70-30 Vial] 80 unit SQ BREAKFAST 10/04/19 Hydralazine HCl [Apresoline] 100 mg PO TID 10/04/19 Hydrocodone 5/APAP 325 [[place] 5/325*] 1 tab PO Q6HP PRN 10/04/19 Liraglutide [Victoza 2-Ze] 1.8 mg SQ DAILY 10/04/19 Metformin HCl 1,000 mg PO BIDWM 10/04/19 Metoprolol Succinate [Toprol Xl] 100 mg PO BID 10/04/19 Montelukast [Singulair*] 10 mg PO DAILY 10/04/19 Pantoprazole [Protonix Tab*] 40 mg PO BID 10/04/19 Zolpidem Tartrate [Ambien*] 10 mg PO BEDTIME 10/04/19 lisinopriL [Lisinopril] 0.5 tab PO BID 10/04/19 Insulin NPH Hum/Reg Insulin Hm [Humulin 70-30 Vial] 70 unit SQ DAILY AT SUPPER 11/20/19 Albuterol Neb [Proventil 0.083% Neb Soln] 2.5 mg NEB [id number] #120 amp 08/06/22 Aspirin [Aspirin EC 81 MG] 81 mg PO DAILY #30 tab 08/06/22 Ipratropium Neb [Atrovent*] 0.5 mg NEB [id number] #120 amp 08/06/22 - Past Medical/Surgical History Diabetic: Yes -: lap band -: CHF -: HTN -: COPD -: Asthma -: CVA -: DM -: History of TIA -: sleep apnea -: Crohn's disease, gastroparesis -: Appendectomy -: cholecystectomy -: Miscarriage -: Ectopic -: -: Right wrist surgery, Left Shoulder surgery, Right knee surgery -: Lap. 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 - Family History Mother Medical History: Heart disease, Hypertension, Diabetes, Stroke, Cancer Father Medical History: Diabetes, Kidney disease Notes: leukemia - Social History Smoking Status: Unknown if ever smoked Alcohol use: No CD- Drugs: No Caffeine use: Yes Review of Systems 10-point ROS is otherwise unremarkable General: Weakness Respiratory: Cough, Shortness of Breath Physical Examination Temp Pulse Resp BP Pulse Ox 98 F 80 18 140/80 95 09/03/22 10:09 09/03/22 10:09 09/03/22 10:09 09/03/22 10:09 09/03/22 10:09 General: Alert, In no apparent distress, Oriented x3 Neck: Supple Respiratory: Clear to auscultation bilaterally, Diminished Cardiovascular: Normal pulses, Normal S1 S2 Laboratory Data (last 24 hrs) 09/03/22 04:13: PT 12.8 H, INR 1.16, APTT 29.7 09/03/22 04:13: Sodium 134 L, Potassium 3.4 L, BUN 8, Creatinine 0.85, Glucose 248 H, Total Bilirubin 0.4, AST 131 H, ALT 124 H, Alkaline Phosphatase 112 09/03/22 04:13: WBC 6.40, Hgb 14.9, Hct 44.7, Plt Count 155 - Problems (1) Respiratory distress Current Visit: Yes Status: Acute Plan: Patient is 57 years of age well known to me with a history of morbid obesity sleep apnea and diachronic baseline dyspnea in addition to metabolic syndrome admitted with acute onset of worsening shortness of breath resume secondary to influenza A's. He does take bronchodilators at home in addition to diuretics treated maximum therapy for her diabetes has home oxygen and treated for hypertension in addition she is compliant with herBiPAP at home. Laboratory data is unremarkable chest x-ray is clear is no evidence of any sepsis.I agree with present management possible discharge tomorrow on macrolide continue with the low-dose prednisone 10 mg twice a day resume oral medicationsI agree with present management possible discharge tomorrow on macrolide continue with the low-dose prednisone 10 mg twice a day resume oral medications
[2022-09-03 13:07] VITALS: BMI 57.5
[2022-09-03] MEDS ORDERED: METHYLPREDNISOLONE 40 MG INJ ONE (13:21)
[2022-09-03] MEDS ORDERED: OSELTAMIVIR 75 MG CAP ONE (13:21)
--- NOTE | 2022-09-03 13:44 | RAD REPORT ---
EXAM DESCRIPTION: RAD - Chest Single View - 09/03/2022 3:43 am CLINICAL HISTORY: The patient is 57 years old and is Female; Cough TECHNIQUE: Frontal view of the chest. COMPARISON: No relevant prior studies available. FINDINGS: Lungs: Prominent interstitial markings suggestive of interstitial edema. Prominent vascu lar markings. Pleural space: Unremarkable. No pneumothorax. Heart: Unremarkable. Mediastinum: Unremarkable. Bones/joints: Unremarkable. IMPRESSION: Prominent interstitial markings suggestive of interstitial edema. Electronically signed by: Maximus Baker MD 09/03/2022 4:22 AM CDT Due to temporary technical issues with the PACS/Fluency reporting system, reports are being signed by the in house radiologists without review as a courtesy to insure prompt reporting. The interpreting radiologist is fully responsible for the content of the report.
[2022-09-03] MEDS: ALBUTEROL 2.5 MG/3 ML NEB SOL NEB SCH ×2 (14:00→19:30)
[2022-09-03] MEDS ORDERED: INFLUENZA VACCINE (for 6+ mo) 0.5 ML DOSE IMVAC ONE (14:00)
[2022-09-03] MEDS: IPRATROPIUM BROM 0.5MG/2.5ML NEB SCH ×2 (14:00→19:30)
--- NOTE | 2022-09-03 14:15 | EKG ---
Test Date: 2022-09-03 Test Time: 04:39:59 Gathering Worker: CHAU MEASUREMENT RESULTS: Intervals: Rate: 108 HI: 156 QRSD: 70 QT: 382 QTc: 511 [place]: P: 64 HI: 156 QRS: 49 T: 17 INTERPRETIVE STATEMENTS: Sinus tachycardia Otherwise normal ECG Compared to ECG 08/04/2022 14:20:35 Sinus rhythm no longer present T-wave abnormality no longer present Electronically Signed On 09-03-22 14:14:59 CDT by Alhaji Loya
[2022-09-03] MEDS ORDERED: GLUCAGON 1 MG/VIAL IM PRN (15:48)
[2022-09-03] MEDS ORDERED: D10W 250 ML BAG IV PRN (16:46)
[2022-09-03] MEDS ORDERED: INSULIN 70/30 100 UNITS/ML SQ ONE (17:00)
[2022-09-03] MEDS ORDERED: IPRATROPIUM BROM 0.5MG/2.5ML ONE (17:43)
[2022-09-03] MEDS ORDERED: ALBUTEROL 2.5 MG/3 ML NEB SOL ONE (17:43)
[2022-09-03] MEDS: OSELTAMIVIR 75 MG CAP PO SCH (20:58)
[2022-09-03] MEDS: CEFTRIAXONE 1,000 MG in NA CHLORIDE 0.9% 50 ML IVPB SCH (20:59)
[2022-09-03] MEDS: AZITHROMYCIN IV 500 MG in NA CHLORIDE 0.9% 250 ML IVPB SCH (20:59)
[2022-09-03] MEDS: ZOLPIDEM TARTRATE 10 MG TABLET PO SCH (21:00)
[2022-09-03] MEDS ORDERED: ZOLPIDEM TARTRATE 10 MG TABLET PO PRN (22:43)
[2022-09-03] MEDS ORDERED: D50W 25 GM/50 ML SYRINGE IV PRN (23:11)
[2022-09-03] MEDS ORDERED: ALPRAZOLAM 1 MG TABLET PO PRN (23:11)
[2022-09-03] MEDS ORDERED: D10W 125 ML IV PRN (23:22)
[2022-09-04] MEDS ORDERED: HYDROCODONE/APAP 5/325 MG TAB PO PRN (00:33)
[2022-09-04] MEDS: IPRATROPIUM BROM 0.5MG/2.5ML NEB SCH ×4 (02:00→20:50)
[2022-09-04] MEDS: ALBUTEROL 2.5 MG/3 ML NEB SOL NEB SCH ×4 (02:00→20:50)
[2022-09-04 03:55] LABS: Hematocrit 44.9 % (36.0-45.0); Lymphocytes % 15.8 % (15.3-44.8); MCV 94.2 fL (80-100); MPV 9.1 fL (7.6-11.3); RBC Red Blood Cell Count 4.77 M/uL (3.86-4.86)
[2022-09-04] MEDS: METHYLPREDNISOLONE 40 MG INJ IV SCH ×2 (04:06→06:00)
[2022-09-04 04:16] LABS: Albumin 3.5 g/dL (3.4-5.0); Bilirubin Total 0.5 mg/dL (0.2-1.0); Magnesium 2.1 mg/dL (1.8-2.4); Phosphorus 3.6 mg/dL (2.5-4.9); Potassium 4.1 mmol/L (3.5-5.1); Protein, Total 7.4 g/dL (6.4-8.2)
[2022-09-04] MEDS ORDERED: METOPROLOL XL 100 MG TAB PO SCH ×2 (06:00→09:00)
--- NOTE | 2022-09-04 07:52 | RAD REPORT ---
EXAM DESCRIPTION: RAD - Chest Single View - 09/04/2022 5:36 am CLINICAL HISTORY: pneumonia COMPARISON: Chest Single View dated 09/03/2022; Chest Single View dated 08/04/2022; Chest Single View dated 04/20/2022; Chest Single View dated 03/03/2022; Chest For Pe Angio dated 08/04/2022 FINDINGS: Lines: None. Lungs: Low lung volumes. Basilar opacities, left greater than right. Pleural: No significant pleural effusions or pneumothorax. Cardiac: The heart size is within normal limits. Mediastinum: Within normal limits. Bones: No acute fractures. Other: None IMPRESSION: Low lung volumes and likely atelectasis. Difficult to exclude pneumonia at the left lung base. .
[2022-09-04] MEDS: Liraglutide [Victoza 2-Pak] 0.6 MG/0.1 ML Pen.Injctr SQ SCH (09:00)
[2022-09-04] MEDS: Fluticasone/Umeclidin/Vilanter [Trelegy Ellipta 100-62.5-25] Blst.W.Dev IH SCH (09:00)
[2022-09-04] MEDS ORDERED: lisinopriL 20 MG TAB PO SCH (09:00)
[2022-09-04] MEDS: COLCHICINE 0.6 MG TAB PO SCH (09:10)
[2022-09-04] MEDS: CEFTRIAXONE 1,000 MG in NA CHLORIDE 0.9% 50 ML IVPB SCH ×2 (09:10→21:47)
[2022-09-04] MEDS: ENOXAPARIN 40 MG/0.4 ML SQ SCH (09:10)
[2022-09-04] MEDS: GABAPENTIN 300 MG CAP PO SCH ×3 (09:11→21:00)
[2022-09-04] MEDS: cloNIDine HCL 0.1 MG TAB PO SCH ×3 (09:11→21:00)
[2022-09-04] MEDS: HYDRALAZINE HCL 25 MG TABLET PO SCH ×3 (09:11→21:00)
[2022-09-04] MEDS: METFORMIN HCL 500 MG TAB PO SCH ×2 (09:11→17:05)
[2022-09-04] MEDS: PANTOPRAZOLE 40MG TABLET PO SCH ×2 (09:11→17:05)
[2022-09-04] MEDS: DICYCLOMINE HCL 10 MG CAP PO SCH ×4 (09:12→21:00)
[2022-09-04] MEDS: OSELTAMIVIR 75 MG CAP PO SCH ×2 (09:12→21:46)
[2022-09-04] MEDS: ATORVASTATIN 40 MG TAB PO SCH (09:16)
[2022-09-04] MEDS: INSULIN 70/30 100 UNITS/ML SQ SCH ×2 (10:03→17:04)
[2022-09-04] MEDS ORDERED: GUAIFENESIN/CODEINE 5ML UCUP PO PRN (15:38)
[2022-09-04] MEDS ORDERED: BENZONATATE 100 MG CAP PO PRN (15:38)
[2022-09-04] MEDS ORDERED: D50W 25 GM/50 ML SYRINGE IV PRN (16:09)
[2022-09-04] MEDS ORDERED: NA CHLORIDE 0.9% 250 ML IV ONE (16:43)
[2022-09-04] MEDS ORDERED: NA CHLORIDE 0.9% 250 ML ONE (17:02)
[2022-09-04] MEDS: METOPROLOL XL 100 MG TAB PO SCH (17:12)
--- NOTE | 2022-09-04 17:50 | CON ---
History Of Present Illness: This is a 57-year-old female, morbidly obese, has history of Crohn disea se with immunosuppression. Patient is coming in with shortness of breath. Also, complains of chest pain especially when she is coughing. Patient denies any back pain, abdominal pain. Having some juliet rrhea. Denies any other problems at this time. Past Medical History: Lap band surgery, congestive heart failure, hypertension, COPD, asthma, stroke , diabetes mellitus, history of TIA, sleep apnea, appendectomy, cholecystectomy, miscarriage, ectopic , right knee surgery. Social History: Tobacco positive. Alcohol negative. Family History: Noncontributory. Medications: Zithromax, Rocephin. See MAR for other medications. Allergies: DOXYCYCLINE, ORANGE JUICE, METOCLOPRAMIDE. Review of Systems: A 10-point review was performed. Physical Examination: General: This is a 57-year-old female was sitting in bed, not in any acute cardiopulmonary distress. Vital Signs: Temperature 96.8, pulse 104, respirations 20, blood pressure 155/79. HEENT: Unremarkable. Neck: Supple. Lungs: Basal crackles. Heart: S1, S2. Regular. Abdomen: Soft, nontender. Bowel sounds present, obese. Extremities: 1+ edema. Laboratory Data: Shows WBC 6.4, hemoglobin 4.9, platelets are 171. Chemistry shows sodium 134, pota ssium 4.1, chloride 99, bicarb 24, BUN 14, creatinine 0.7, glucose is 500. Albumin level is 3.5. Bl ood cultures negative to date. Assessment And Plan: A 57-year-old female with multiple medical problems, currently possible pneumon itis versus pharyngitis, currently on Zithromax and Rocephin. Possible left lower lobe infiltrate. We recommend to continue antibiotic for 7 days. Continue supportive care, hydration, and nutritional support. Diarrhea, rule out Crohn's versus Clostridium difficile. We will follow the patient close ly. Thank you Dr. Smith for consult. NF/MODL Voice ID: [id number] Report ID: [id number]
[2022-09-04] MEDS ORDERED: CEFTRIAXONE 1000 MG/VIAL ONE (21:45)
[2022-09-04] MEDS: predniSONE 10 MG TAB PO SCH (21:46)
[2022-09-04] MEDS ORDERED: NA CHLORIDE 0.9% 50 ML ONE (21:53)
[2022-09-04] MEDS ORDERED: INSULIN -REGULAR HUMAN 50 UNIT/0.5 ML ML IV ONE (22:30)
[2022-09-04] MEDS ORDERED: ALBUMIN HUMAN 25% 100 ML IV ONE (22:39)
[2022-09-05] MEDS: IPRATROPIUM BROM 0.5MG/2.5ML NEB SCH ×3 (01:20→14:30)
[2022-09-05] MEDS: ALBUTEROL 2.5 MG/3 ML NEB SOL NEB SCH ×3 (01:20→14:30)
[2022-09-05] MEDS: ZOLPIDEM TARTRATE 10 MG TABLET PO SCH (01:22)
[2022-09-05] MEDS: METOPROLOL XL 100 MG TAB PO SCH (06:00)
[2022-09-05] MEDS: Fluticasone/Umeclidin/Vilanter [Trelegy Ellipta 100-62.5-25] Blst.W.Dev IH SCH (07:36)
[2022-09-05] MEDS: Liraglutide [Victoza 2-Pak] 0.6 MG/0.1 ML Pen.Injctr SQ SCH (07:36)
[2022-09-05] MEDS: ENOXAPARIN 40 MG/0.4 ML SQ SCH (08:22)
[2022-09-05] MEDS: CEFTRIAXONE 1,000 MG in NA CHLORIDE 0.9% 50 ML IVPB SCH (08:22)
[2022-09-05] MEDS: GABAPENTIN 300 MG CAP PO SCH ×2 (08:22→14:42)
[2022-09-05] MEDS: OSELTAMIVIR 75 MG CAP PO SCH ×2 (08:23→18:10)
[2022-09-05] MEDS: METFORMIN HCL 500 MG TAB PO SCH ×2 (08:23→16:49)
[2022-09-05] MEDS: COLCHICINE 0.6 MG TAB PO SCH (08:23)
[2022-09-05] MEDS: ATORVASTATIN 40 MG TAB PO SCH (08:23)
[2022-09-05] MEDS: PANTOPRAZOLE 40MG TABLET PO SCH ×2 (08:23→16:54)
[2022-09-05] MEDS: predniSONE 10 MG TAB PO SCH (08:23)
[2022-09-05] MEDS: DICYCLOMINE HCL 10 MG CAP PO SCH ×3 (08:24→16:49)
[2022-09-05] MEDS: AZITHROMYCIN IV 500 MG in NA CHLORIDE 0.9% 250 ML IVPB SCH (08:25)
[2022-09-05] MEDS: INSULIN -REGULAR HUMAN 50 UNIT/0.5 ML ML SQ SCH ×3 (08:25→16:50)
[2022-09-05] MEDS: INSULIN 70/30 100 UNITS/ML SQ SCH ×2 (08:26→16:50)
[2022-09-05] MEDS: HYDRALAZINE HCL 25 MG TABLET PO SCH ×2 (08:49→14:25)
[2022-09-05] MEDS: cloNIDine HCL 0.1 MG TAB PO SCH ×2 (08:49→14:42)
[2022-09-05 10:35] VITALS: O2SAT 92
--- NOTE | 2022-09-05 11:47 | P.PN ---
Subjective Date of Service: 09/05/22 Chief Complaint: Influenza infection Subjective: Improving (Patient is doing well no new complaints blood sugar elevated) Review of Systems Unremarkable Respiratory: Shortness of Breath Physical Examination - Vital Signs Temperature: 97.2 F Blood Pressure: 151/69 Pulse: 76 Respirations: 18 Pulse Ox (%): 95 - Physical Exam General: Alert, In no apparent distress, Oriented x3 Respiratory: Clear to auscultation bilaterally, Diminished Cardiovascular: No edema, Regular rate/rhythm - Studies Microbiology Data (last 24 hrs): 09/03/22 04:01 Blood - Blood Aerobic Blood Culture - Final 09/03/22 04:01 Blood - Blood Blood Culture Gram Stain - Final 09/03/22 04:01 Blood - Blood Anaerobic Blood Culture - Final Assessment And Plan - Current Problems (Diagnosis) (1) Respiratory distress Current Visit: Yes Status: Acute Plan: Patient admitted with respiratory distress from influenza infection she is doing much better vital signs oxygenation satisfactory patient has home O2 plan for discharge home resume home medication will add Xigduo
--- NOTE | 2022-09-05 15:06 | P.PN ---
Date of Service: 09/04/22 Subjective Patient is clinically doing well. However, she is still tachypneic. Room air O2 sats are 81%. Physical Examination - Vital Signs Reviewed - Physical Exam General: Alert, In no apparent distress, Oriented x3 Respiratory: Diminished breath sound at the base but otherwise clear Cardiovascular: Regular rate/rhythm, Normal S1 S2 Gastrointestinal: Normal bowel sounds, Soft and benign, Non-distended, No tenderness Neurological: No focal deficits Assessment & Plan - Problems (Diagnosis) (1) Influenza A with pneumonia Current Visit: Yes Status: Acute (2) Chronic COPD; obesity hypoventilation syndrome; hypoxic respiratory failure Onset Date: 11/03/16 (3) Crohn's disease Current Visit: Yes Status: Acute (4) GERD (gastroesophageal reflux disease) Current Visit: No Status: Acute (5) Diabetes mellitus Onset Date: 05/21/16 Current Visit: No Status: Chronic Qualifiers: Diabetes mellitus type: type 2 Diabetes mellitus complication status: without complication (6) HTN (hypertension) Onset Date: 05/21/16 Current Visit: No Status: Chronic Qualifiers: Hypertension type: primary hypertension Qualified Code(s): I10 - Essential (primary) hypertension (7) Hyperlipidemia Current Visit: No Status: Chronic Qualifiers: Hyperlipidemia type: other hyperlipidemia Qualified Code(s): E78.49 - Other hyperlipidemia; E78.4 - Other hyperlipidemia (8) Morbid obesity Onset Date: 09/11/16 Current Visit: No Status: Chronic - Plan Continue with plan of care as mentioned below: 1. Continue with antiviral therapy 2. Awaiting culture 3. Repeat chest x-ray 4. Continue with CPAP support at night 5. Appreciate pulmonary consultation 6. Continue with nebs as needed 7. O2 per protocol 8. Continue with gentle hydration 9. Repeat labs 10. GI and DVT prophylaxis
[2022-09-05 17:00] VITALS: BP 143/80; TEMP 97.7
== END 2022-09-05 18:19 | disposition home or self-care (01) | DRG 193 ==
LOC: ER 03:01 → ERHOLD 10:03 → 4TH 18:26
PROVIDERS: ADMIT Hospitalist; ATTEND Hospitalist
PROC: 5A09457 Assistance with Respiratory Ventilation, 24-96 Consecutive Hours, Continuous Positive Airway Pressure (ICD-10-PCS; principal; 2022-09-03)
DX: J10.00 Influenza due to other identified influenza virus with unspecified type of pneumonia (principal); J96.21 Acute and chronic respiratory failure with hypoxia; Z68.43 Body mass index [BMI] 50.0-59.9, adult; E66.2 Morbid (severe) obesity with alveolar hypoventilation; K50.90 Crohn's disease, unspecified, without complications; J44.1 Chronic obstructive pulmonary disease with (acute) exacerbation; J44.0 Chronic obstructive pulmonary disease with (acute) lower respiratory infection; E11.65 Type 2 diabetes mellitus with hyperglycemia; K21.9 Gastro-esophageal reflux disease without esophagitis; E78.49 Other hyperlipidemia; I10 Essential (primary) hypertension; Z88.1 Allergy status to other antibiotic agents; Z88.8 Allergy status to other drugs, medicaments and biological substances; Z79.4 Long term (current) use of insulin; Z90.49 Acquired absence of other specified parts of digestive tract; Z98.51 Tubal ligation status; Z99.81 Dependence on supplemental oxygen; Z79.01 Long term (current) use of anticoagulants; Z79.84 Long term (current) use of oral hypoglycemic drugs; Z86.73 Personal history of transient ischemic attack (TIA), and cerebral infarction without residual deficits; Z79.82 Long term (current) use of aspirin; Z91.018 Allergy to other foods; Z79.899 Other long term (current) drug therapy; Z20.822 Contact with and (suspected) exposure to COVID-19
CPT/HCPCS: 36415; 71045; 80053; 80061; 82947; 83605; 83735; 83880; 84100; 84145; 85025; 85610; 85730; 87040; 87205; 87804; 93005; 94640; 94660; 94760; 96361; 96365; 96375; 99284; J0456; J1650; J1815; J2405; J2920; J2930; J3475; J7040; J7050; J7512; J7614; P9047; U0003

== ENCOUNTER 2022-10-16 08:09 | Day surgery (SDC) | payer OTHER ==
[2022-10-16] MEDS ORDERED: NA CHLORIDE 0.9% 1,000 ML ONE (08:35)
[2022-10-16] MEDS ORDERED: propofoL 200 MG/20 ML VIAL IV ONE (10:50)
[2022-10-16] MEDS ORDERED: MIDAZOLAM HCL 2 MG/2 ML INJ ONE (10:51)
[2022-10-16] MEDS ORDERED: LIDOCAINE 2% MPF 5 ML VIAL ONE (10:51)
[2022-10-16] MEDS ORDERED: ROCURONIUM 50 MG/5 ML VIAL IV ONE (10:51)
[2022-10-16] MEDS ORDERED: ONDANSETRON 4 MG/2 ML VIAL ONE (10:51)
[2022-10-16] MEDS ORDERED: dexAMETHasone 10 MG/ML VIAL ONE (10:51)
[2022-10-16] MEDS ORDERED: FENTANYL CITR 100 MCG/2 ML ONE (10:51)
[2022-10-16] MEDS ORDERED: EPINEPHRINE/PF 1 MG/ML AMP ONE (11:13)
[2022-10-16] MEDS ORDERED: OFLOXACIN OPH 0.3%-5 ML BTL ONE ×2 (11:13→11:23)
[2022-10-16] MEDS ORDERED: LIDOCAINE 1% W/EPI 1:100,000 30 ML VIAL ONE (11:23)
[2022-10-16] MEDS ORDERED: OXYMETAZOLINE HCL 0.05% 15ML NAS ONE (11:23)
--- NOTE | 2022-10-16 12:04 | P.OP ---
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 There was no significant abnormality noted anteriorly. A Afrin-soaked cottonoid pledget was applied to the right and left nasal cavity to provide decongestion. These pledgets were left in place for several minutes while the tube was placed The left ear was examined using an ear speculum and operating microscope. Moist and ceruminous debris was removed using a wire loop and suction. The eardrum was visualized and appeared intact with light raulito fluid within the middle ear. A myringotomy knife was used to make a radial incision in the anterior-inferior quadrant and the fluid was suctioned using a 5 Tamazight Urbano suction. A Saez T-tube was placed across the incision using a alligator forcep and pick. The tube lumen was suctioned using a 3 Tamazight Urbano suction. There was no significant bleeding noted and this portion of the procedure was concluded The 0 degree rigid endoscope was prepared. The Afrin-soaked pledgets were removed from the nasal cavity. The endoscope was passed through the left nare towards the nasopharynx. There was a significant left septal spur which prevented advancement of the scope into the nasopharynx. The mucosa of the nasal cavity was mildly inflamed but otherwise not significantly abnormal. The inferior and middle turbinate appeared approximately normal. The middle meatus was open with no active or significant drainage and no evidence of polyps. The scope was then removed and passed through the right nare and through the nasal cavity. The inferior and middle turbinate and middle meatus were unremarkable. A small amount of mucus was suctioned. The right eustachian tube and torus tubarius were visualized and appeared unremarkable. There was a moderate sized amount of tissue noted along the roof of the nasopharynx. Due to limitations, I was unable to directly visualize the left eustachian tube. The mass of tissue did not appear ulcerated or significantly irritated though there was some hypervascularity noted near the midline. Given the overall patient condition and situation with unexpected intraoperative findings, I elected to proceed with biopsy as I felt this was in the patient's best interest to avoid a second course of anesthesia for a relatively mild/low risk procedure. The 0 degree rigid endoscope was passed through the right nasal cavity. The mass was visualized and a 45 degree up-biting Blakesley forcep was used to obtain tissue biopsy. The specimen was sent in formalin to pathology for formal evaluation. The nasopharynx was suctioned and the degree of bleeding was minimal. The left nasal cavity was again briefly examined and there was no evidence of significant injury to the anterior structures. Complications: None Implants: Left Saez tympanostomy tube Transferred to: Recovery Room Condition: Good
[2022-10-16] MEDS: MORPHINE 4 MG/ML SYR ONE ×2 (12:11→12:16)
[2022-10-16 12:48] VITALS: BP 141/72; TEMP 97.7; O2SAT 94
[2022-10-16] MEDS ORDERED: ACETAMINOPHEN 325 MG TABLET ONE (12:58)
== END 2022-10-16 13:05 | disposition home or self-care (01) ==
LOC: OR 08:09
PROVIDERS: ATTEND Otolaryngology
PROC: 09BN8ZX Excision of Nasopharynx, Via Natural or Artificial Opening Endoscopic, Diagnostic (ICD-10-PCS; 2022-10-16)
PROC: 099670Z Drainage of Left Middle Ear with Drainage Device, Via Natural or Artificial Opening (ICD-10-PCS; principal; 2022-10-16 10:00)
DX: H65.22 Chronic serous otitis media, left ear (principal); C08.9 Malignant neoplasm of major salivary gland, unspecified; H90.2 Conductive hearing loss, unspecified; H90.A32 Mixed conductive and sensorineural hearing loss, unilateral, left ear with restricted hearing on the contralateral side; H92.02 Otalgia, left ear; E66.3 Overweight
CPT/HCPCS: 82947 ×2; 88305; 69436; 42999; J2704; J2001; J2250; J3010; J7030; J2405; J0171; J1100

== ENCOUNTER 2022-10-28 15:47 | Emergency (ER) | payer OTHER ==
--- OUTSIDE RECORDS SUMMARY | 2022-10-28 16:09 | XMS REPORT | Continuity of Care Document ---
:1965 Author Organization [facility] t Address [address] [place] [address] Care Team Providers Name Role Phone JARON IRVING Primary Care Physician Unavailable Tapan Harper Attending Clinician Unavailable Cas Rodriguez Attending Clinician Unavailable RANDALL SHERIFF Attending Clinician Unavailable Randall Sheriff MD Attending Clinician Lab, Ang - Db Attending Clinician Unavailable CHINMAY OLSEN Attending Clinician Unavailable SONJA OSORIO Attending Clinician Unavailable Jo INVENTORY SPECIALIST MANAGERSonja Rollins Attending Clinician Pob, Adc Lab Main Attending Clinician Unavailable LOBITO RAI Attending Clinician Unavailable Angelica MATHIS Attending Clinician Unavailable Angelica Mathis MD Attending Clinician Angelica MATHIS Attending Clinician Unavailable GERMAIN CALERO Attending Clinician Unavailable CHARO WISE Attending Clinician Unavailable CindyM Attending Clinician Unavailable JACQUELIN GONZALEZ Attending Clinician Unavailable Jacquelin Gonzalez NP Attending Clinician Charo Wise MD Attending Clinician CHARO WISE Attending Clinician Unavailable Rigo GRIFFIN, Adam Gutierrez Attending Clinician Rishabh GRIFFIN, [place] Kellogg Attending Clinician [phone] Germain Ortega Attending Clinician Doctor Unassigned, [place] Attending Clinician Unavailable Placido Coughlin MD Attending Clinician Mimi Attending Clinician Unavailable Nurse, Adc Pob Immunization Attending Clinician Unavailable Miguel Patel DO Attending Clinician MIGUEL PATEL Attending Clinician Unavailable Jaimee Ferrer LMSW Attending Clinician Cbc, Medicare Wellness Ang [facility] Attending Clinician Unavailab DUSTIN Holliday Attending Clinician Unavailable Daniel GARBER, Mary Alejandre Attending Clinician Unavailable AMANDA BRAND Attending Clinician Unavailable Provider, [facility] Attending Clinician Unavailable Amanda Gary Attending Clinician PABLO INTERIANO Attending Clinician Unavailable PLACIDO COUGHLIN Attending Clinician Unavailable MOE ELZIALDE Attending Clinician Unavailable Brigida Avilez Attending Clinician [...] Effective Date Expiration Date Annette gonzalez MEDICARE PART A [id number] 2010 \\T\\ B 00:00:00 MEDICAID [facility] [id number] 2012 00:00:00 MEDICARE PART A [id number] \\T\\ B - MEDICARE TMHP-MEDICAID - [id number] MEDICAID MEDICARE A B [id number] 2010 00:00:00 MEDICAID [facility] [id number] 2021 00:00:00 [place]: [id number] 2010 [employer] 00:00:00 [place] [id number] [place] Problems Condition Condition Condition Status Onset Resolution Last Treating Co mments Source Name Details Category Date Date Treatment Clinician Date SOB SOB Disease Active 2021-11 Univers (shortness (shortness 0-25 it y of [place] breath[place] [facility] New daily New daily Disease Active 2021-11 Uni vers persistent persistent 0-25 it y of headache headache 00:00: [address] Branch Dizziness Dizziness Disease Active 2021-11 Uni vers 0-25 ity of 00:00: [address] Wheezing Wheezing Disease Active 2021-11 Unive rs 0-25 ity of 00:00: [place] [facility] Branch Diabetes Diabetes Problem Active 2020-11 [...] 4-16 it y of on on 00:00: [place] [facility] Gastroesop Gastroesop Disease Active U [...] 5-30 13:34:00 l Active 00:00: [place] 03/30/[address] [place] [address] [place] REFLUX-K21 Diagnosis Active 2014-112015-11-08 Memoria .9 REFLUX-K21 -18 12:57:00 l .9 Active 00:00: [place] 10/18/2015 [facility] [place] ACS (acute ACS (acute Disease Active U nivers coronary coronary 3-16 [place]y of syndrome[place] syndrome[place] Cough Cough Problem Resolve 2019-06-28 [place] radha (finding) (finding) d 15:29:48 l Resolved [place] Problem 06/28/2019 2 weeks ago,, cough, cold , flu; better now [facility] [place] Infection Infection Problem Resolve 2019-06-28 Memoria of ear of ear d 15:29:48 l (disorder) (disorder) He flakita Resolved Problem 06/28/2019 [facility], [place] Irregular Irregular Problem Resolve 2019-06-28 Memoria heart beat heart beat d 15:29:48 l (finding) (finding) Herm flakita Resolved Problem 06/28/2019 [facility], [place] Muscle Muscle Problem Resolve 2019-06-28 Mem oria pain pain d 15:29:48 l (finding) (finding) Herm flakita Resolved Problem 06/28/2019 [facility], [place] Anxiety Anxiety Problem Active 2019-06-28 M emoria (finding) (finding) 15:29:48 l Active [place] Problem 06/28/2019 [facility], [facility], [place] Backache Backache Problem Active 2019-06-28 Memoria (finding) (finding) 15:29:48 l Active [place] Problem 06/28/2019 [facility], [place] Gout Gout Problem Active 2019-06-28 Memor ia (disorder) (disorder) 15:29:48 l Active [place] Problem 06/28/2019 [facility], [place] Hypertensi Hypertens Problem Active 2019-06-28 Memoria ve rosales 15:29:48 l disorder, disorder, Herm flakita systemic systemic arterial arterial (disorder) (disorder) Active Problem 06/28/2019 [facility], [facility], [place] Insomnia Insomnia Problem Active 2019-06-28 Memoria (disorder) (disorder) 15:29:48 l Active [place] Problem 06/28/2019 [facility], [facility], [place] 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 15:29:48 l (disorder) (disorder) He rmann Active Problem 06/28/2019 [facility], [facility], [place] Lumbar Lumbar Problem Active 2019-06-28 [place] radha radiculopa radiculopa 15:29:48 l thy thy [place] (disorder) (disorder) Active Problem 06/28/2019 [facility] Neuro Osteoarthr Osteoarth Problem Active 2019-06-28 Memoria itis ritis 15:29:48 l (disorder) (disorder) He r[place] Active Problem 06/28/2019 [facility], [facility] Peripheral Periphera Problem Active 2019-06-28 Memoria nerve l nerve 15:29:48 l disease disease [place] (disorder) (disorder) Active Problem 06/28/2019 [facility] Sleep Sleep Problem Active 2019-06-28 Memor ia apnea apnea 15:29:48 l (finding) (finding) Herm flakita Active Problem 06/28/2019 [facility] Christo, [facility], [place] Cholestero Cholester Problem Active 2015-11-11 Memoria l ol 01:38:42 l (substance (substance He rmann ) ) Active Problem 11/11/2015 [place] GASTRO-ESO GASTRO-ES Diagnosis Active 2015-11-08 Memoria PHAGEAL OPHAGEAL 12:57:00 l REFLUX REFLUX [place] DISEASE DISEASE WITHOUT WITHOUT Active [place] No known No known Disease [facility] r active active College problems problems of Medicin e Allergies, Adverse Reactions, Alerts Allergy Allergy Status Severity Reaction(s) Onset Inactive Treating Comm ents Source Name Type Date Date Clinician ORANGE DRUG Active Low N/V 2021-11 Univers JUICE INGREDI 11-21 ity of 00:00: [place] 00 Medical Branch [place] Drug Active Nausea 2021-11 Univers Juice Allergy and/or 11-21 ity of Vomiting 00:00: 00 Medical Branch [place] Propensi Active Other [facility] Flower ty to 07-08 reaction( Ewa Gentry Water adverse 00:00: s): of reaction 00 Nausea/Vo Medic in s to miting e drug Kiwi Propensi Active Other - See Uni vers ty to comments 01-25 ity of adverse 00:00: [place] reaction 00 Medical s Branch KIWI DRUG Active Unknown-Cmnt Univ ers INGREDI 01-25 ity of 00:00: [place] 00 Medical Branch Kiwi Propensi Active Other (See Bayl or Extract ty to Comments) 01-25 Colleg e adverse 00:00: of reaction 00 Medicin s to e drug Doxycycl Propensi Active [facility] ine ty to 11-06 Ewa [place] adverse 00:00: of reaction 00 Medicin s to e drug Metoclop Propensi Active [facility] ramide ty to 11-06 Ewa [place] adverse 00:00: of reaction 00 Medicin s to e drug doxycycl DA Active U 2020-0 [facility] [place] [facility]: d [facility] metoclop DA Active U 2020-0 [facility] ramide 2- [place] 00:00: d 00 [facility] doxycycl DA Active U VOMITING 0 [facility] in[facility] 2 [place] 00:00: d 00 [facility] metoclop DA Active U UNKNOWN 2019-0 [facility] ramide 2 [place] 00:00: d 00 [facility] [place] Propensi Active Nausea Univers ty to and/or 05-11 ity of adverse Vomiting 00:00: [place] reaction 00 [facility] s [place] ORANGE DRUG Active Med N/V Univers INGREDI 05-11 ity of 00:00: [place] [facility] [place] Propensi Active Nausea And And Kiwi Ba ylor ty to Vomiting 05-11 College adverse 00:00: of reaction Medicin s to e drug [place] Drug Active Nausea And And Kiwi [facility] Medical 00 [place] ORANGE Allergy Active Med N\\T\\V [facility] Medical 00 [place] Doxycycl Propensi Active Nausea Univer s ine ty to and/or 01-14 ity of adverse Vomiting 00:00: [place] reaction [facility] Metoclop Propensi Active Unknown - Told by Oscar cummings ty to See comments -16 anesthesi i ty of Hcl adverse 00:00: ologist [place] reaction that she Medica l s should Branch add to her allergies following a procedure DOXYCYCL DRUG Active High N/V Univers INE INGREDI 3-16 ity of 00:00: [place] 00 [facility] METOCLOP DRUG Active Unknown-Cmnt Oscar CUMMINGS INGREDI 3-16 ity of HCL 00:00: [place] [facility] METOCLOP DRUG Active High N/V Univers RAMIDE INGREDI 3-16 ity of 00:00: [place] 00 [facility] Doxycycl Drug Active Nausea And [address] ine Allergy Vomiting 16 [facility] Medical 00 Center Metoclop Drug Active Other (See Told by [facility] ramide Allergy Comments) 3-16 anesthesi Nima es 00:00: ologist Medical 00 that she Center should add to her allergies following a procedure DOXYCYCL Allergy Active High N\\T\\V [facility] INE 3-16 [facility] 00:00: Medical 00 [place] METOCLOP Allergy Active High Other [facility] RAMIDE 3-16 [facility] 00:00: Medical 00 [place] doxycycl doxycycl Active Memori a ine ine l [place] Reglan Reglan Active Simonaoria l [place] NO KNOWN Allergy Active [facility] ALLERG[facility] Social History Social Habit Start Date Stop Date Quantity Comments Source History of tobacco Cigarette Smoker University of use [facility] Branch History [facility] University o f Transport Non-Med [facility] Branch Exposure to 2022-10-11 2022-10-21 Not sure University SARS-CoV-2 (event) 00:00:00 08:51:00 [facility] Cigarettes smoked 2022-08-25 2022-08-25 Univers ity of current (pack per 00:00:00 00:00:00 [facility] ) - Reported Branch Alcohol intake 2022-01-09 2022-01-09 Ex-drinker [facility] es 00:00:00 00:00:00 (finding) [facility] Tobacco use and 2022-01-08 2022-01-[address] Jan[facility] kes exposure 00:00:00 00:00:00 [facility] Tobacco Comment 2022-01-08 2022-01-08 only as teenager [facility] 00:[facility]00 Medical Center History [facility] 2019-08-25 2019-08-25 3 Unive rsity of Connections Phone 00:00:00 00:00:00 [place] [facility] Social 2019-08-25 2019-08-25 1 Unive rsity of Connections Get 00:00:00 00:00:00 [facility] ical Together Branch History [facility] Social 2019-08-25 2019-08-25 1 Unive rsity of Connections Restorationist 00:00:00 00:00:00 [place] [facility] History [facility] Social 2019-08-25 2019-08-25 2 Unive rsity of Connections 00:00:00 00:00:00 [place] [facility] Membership Branch History [facility] Social 2019-08-25 2019-08-25 1 Unive rsity of Connections 00:00:00 00:00:00 [place] [facility] Meetings Branch History [facility] Social 2019-08-25 [...] 1 Univers ity of Worry 00:00:00 00:00:00 [place] [facility] History [facility] Food 2019-08-25 2019-08-25 1 Univers ity of Scarcity 00:00:00 00:00:00 [place] [facility] History [facility] 2019-08-25 2019-08-25 2 University o f Transport Med 00:00:00 00:00:00 [place] [facility] al Branch Social History 2015-11-07 2015-11-07 [facility] Vickie logan 16:48:16 16:48:16 [birth year] CARMEN Hilario 00:00:00 00:00:00 [facility] Center Smoking Status Start Date Stop Date Source Ex-smoker 2022-08-25 00:00:00 2022-08-25 00:00:00 Universi ty of [facility] Never smoked tobacco [facility] Medications Ordered Filled Start Stop Current Ordering Indication Dosage Frequency Signature Comments Components Source Medication Medication Date Date Medication? Clinician (SIG) Name Name gabapentin 2021-11 Yes [id number] 600mg Take 1 Univers 600 mg 2-21 tablet by ity of tablet 00:00: mouth in [place] 00 the Medical morning Branch and 1 tablet at noon and 1 tablet in the evening. HYDROcodone 2021-11 Yes [id number] 1{tbl} Take 1 Un ally -acetaminop 2-21 tablet by ity of hen 7.5-325 00:00: mouth [place] mg per 00 every 6 Medical tablet (six) Branch hours as needed for Pain. Indication s: chronic pain Diclofenac 2021-11 Yes [id number] Apply to Univers Sodium 1 % 2-21 area(s) 3 ity of gel 00:00: (three) [place] 00 times Medical daily. Branch gabapentin 2021-11 Yes [id number] 600mg Take 1 Univers 600 mg 2-21 tablet by ity of tablet 00:00: mouth in [place] 00 the Medical morning Branch and 1 tablet at noon and 1 tablet in the evening. HYDROcodone 2021-11 Yes [id number] 1{tbl} Take 1 Un ally -acetaminop 2-21 tablet by ity of hen 7.5-325 00:00: mouth [place] mg per 00 every 6 Medical tablet (six) Branch hours as needed for Pain. Indication s: chronic pain Diclofenac 2021-11 Yes [id number] Apply to Univers Sodium 1 % 2-21 area(s) 3 ity of gel 00:00: (three) [place] 00 times Medical daily. Branch ondansetron 2021-11 Yes DISSOLVE 1 Univers 4 mg 2-14 TABLET ON ity of disintegrat 00:00: THE TONGUE [place] ing tablet 00 EVERY 8 Medica l HOURS Branch NEEDED ondansetron 2021-11 Yes DISSOLVE 1 Univers 4 mg 2-14 TABLET ON ity of disintegrat 00:00: THE TONGUE [place] ing tablet 00 EVERY 8 Medica l HOURS Branch NEEDED BD DEVORAH 2021-11 Yes 10mg Take 10 mg Univers GEN PEN 2-05 by mouth. ity of NEEDLE 32 00:00: [place] gauge x 00 Medical 5/32" Ndle Branch BD DEVORAH 2021-11 Yes 10mg Take 10 mg Univers GEN PEN 2-05 by mouth. ity of NEEDLE 32 00:00: [place] gauge x 00 Medical " Ndle Branch LISINOPRIL 2021-11 Yes [id number] TAKE 1/2 Univers 40 mg 2-02 TABLET BY ity of tablet 00:00: MOUTH [place] 00 TWICE Medical DAILY Branch LISINOPRIL 2021-11 Yes [id number] TAKE 1/2 Univers 40 mg 2-02 TABLET BY ity of tablet 00:00: MOUTH [place] 00 TWICE Medical DAILY Branch LISINOPRIL 2021-11 Yes [id number] TAKE 1/2 Univers 40 mg 2-02 TABLET BY ity of tablet 00:00: MOUTH [place] 00 TWICE Medical DAILY Branch allopurinol 2021-11- No 100mg Take 100 Univers (ZYLOPRIM) 1-21 11-21 mg by ity of 100 mg 09:37: 00:00 mouth [place] tablet 13 :00 daily. Medical Branch ALPRAZolam 2021-11- No 2mg Take 2 mg U nivers (XANAX) 1-21 11-21 by mouth ity of 0.25 mg 09:37: 00:00 every 6 [place] tablet 13 :00 (six) Medical hours as Branch needed. allopurinol 2021-11 No 100mg Take 100 Univers (ZYLOPRIM) 1-21 11-21 mg by ity of 100 mg 09:37: 00:00 mouth [place] tablet 13 :00 daily. Medical Branch ALPRAZolam 2021-11 No 2mg Take 2 mg U nivers (XANAX) 1-21 11-21 by mouth ity of 0.25 mg 09:37: 00:00 every 6 [place] tablet 13 :00 (six) Medical hours as Branch needed. HYDROcodone 2021-11 Yes [id number] 1{tbl} Take 1 Un ally -acetaminop 1-21 tablet by ity of hen 7.5-325 00:00: mouth [place] mg per 00 every 6 Medical tablet (six) Branch hours as needed for Pain. Indication s: chronic pain metFORMIN 2021-11 Yes [id number] 1000mg Take 1 Univers 1,000 mg 1-21 tablet by ity of tablet 00:00: mouth in [place] 00 the Medical morning Branch and 1 tablet in the evening. Take with meals. HYDROcodone 2021-11 Yes [id number] 1{tbl} Take 1 Un ally -acetaminop 1-21 tablet by ity of hen 7.5-325 00:00: mouth [place] mg per 00 every 6 Medical tablet (six) Branch hours as needed for Pain. Indication s: chronic pain metFORMIN 2021-11 Yes [id number] 1000mg Take 1 Univers 1,000 mg 1-21 tablet by ity of tablet 00:00: mouth in [place] [id number] the [facility] morning [place] and 1 tablet in the evening. Take with meals. HYDROcodone 2021-11 Yes [id number] 1{tbl} Take 1 Un ally -acetaminop 1-21 tablet by ity of hen 7.5-325 00:00: mouth [place] mg per 00 every 6 Medical tablet (six) Branch hours as needed for Pain. Indication s: chronic pain metFORMIN 2021-11 Yes [id number] 1000mg Take 1 Univers 1,000 mg 1-21 tablet by ity of tablet 00:00: mouth in [address] and 1 tablet in the evening. Take with meals. HYDROcodone 2021-11 Yes [id number] 1{tbl} Take 1 Un ally -acetaminop 1-21 tablet by ity of hen 7.5-325 00:00: mouth [place] mg per 00 every 6 Medical tablet (six) Branch hours as needed for Pain. Indication s: chronic pain metFORMIN 2021-11 Yes [id number] 1000mg Take 1 Univers 1,000 mg 1-21 tablet by ity of tablet 00:00: mouth in [address] and 1 tablet in the evening. Take with meals. metFORMIN 2021-11 Yes [id number] 1000mg Take 1 Univers 1,000 mg 1-21 tablet by ity of tablet 00:00: mouth in [address] and 1 tablet in the evening. Take with meals. neomycin-po 2021-11 Yes INSTILL 4 U nivers lymyxin-hyd 1-21 DROPS TO ity of rocortisone 00:00: [place]ED [place] otic 00 EAR FOUR Medical solution TIMES Branch DAILY metFORMIN 2021-11 Yes [id number] 1000mg Take 1 Univers 1,000 mg 1-21 tablet by ity of tablet 00:00: mouth in [address] and 1 tablet in the evening. Take with meals. neomycin-po 2021-11 Yes INSTILL 4 U nivers lymyxin-hyd 1-21 DROPS TO ity of rocortisone 00:00: [place]ED [place] otic 00 EAR FOUR Medical solution TIMES Branch DAILY HYDROcodone 2021-11- No [id number] 1{tbl} Take 1 U nivers -acetaminop 1-21 12-21 tablet by it y of hen 7.5-325 00:00: 00:00 [place] mg per 00 :00 every 6 Medical tablet (six) Branch hours as needed for Pain. Indication s: chronic pain HYDROcodone 2021-11- No [id number] 1{tbl} Take 1 U nivers -acetaminop 1-21 12-21 tablet by it y of hen 7.5-325 00:00: 00:00 [place] mg per 00 :00 every 6 Medical tablet (six) Branch hours as needed for Pain. Indication s: chronic pain GABAPENTIN 2021-11 Yes [id number] TAKE 1 Univers 600 mg 1-17 TABLET BY ity of tablet 00:00: MOUTH [place] THREE Medical TIMES Branch DAILY GABAPENTIN 2021-11 Yes [id number] TAKE 1 Univers 600 mg 1-17 TABLET BY ity of tablet 00:00: MOUTH [place] 00 THREE Medical TIMES Branch DAILY GABAPENTIN 2021-11 Yes [id number] TAKE 1 Univers 600 mg 1-17 TABLET BY ity of tablet 00:00: MOUTH [place] 00 THREE Medical TIMES Branch DAILY GABAPENTIN 2021-11 Yes [id number] TAKE 1 Univers 600 mg 1-17 TABLET BY ity of tablet 00:00: MOUTH [place] THREE Medical TIMES Branch DAILY GABAPENTIN 2021-11 Yes [id number] TAKE 1 Univers 600 mg 1-17 TABLET BY ity of tablet 00:00: MOUTH [place] 00 THREE Medical TIMES Branch DAILY GABAPENTIN 2021-11 Yes [id number] TAKE 1 Univers 600 mg 1-17 TABLET BY ity of tablet 00:00: MOUTH [place] 00 THREE Medical TIMES Branch DAILY GABAPENTIN 2021-2021- No [id number] TAKE 1 Univers 600 mg 1-17 12-21 TABLET BY ity of tablet 00:00: 00:00 MOUTH [place] 00 :00 THREE Medical TIMES Branch DAILY GABAPENTIN 2021-2021- No [id number] TAKE 1 Univers 600 mg 1-17 12-21 TABLET BY ity of tablet 00:00: 00:00 MOUTH [place] 00 :00 THREE Medical TIMES Branch DAILY ALPRAZolam 2021-11 Yes 2mg Take 2 mg Un ally 2 mg tablet 1-12 by mouth 3 it y of 00:00: (three) [place] 00 times Medical daily as Branch needed. atorvastati 2021- Yes 20mg Take 20 mg Univers n 20 mg 1-12 by mouth ity of tablet 00:00: in the [place] 00 morning. Medical Branch ALPRAZolam 2021- Yes 2mg Take 2 mg Un ally 2 mg tablet 1-12 by mouth 3 it y of 00:00: (three) [place] 00 times Medical daily as Branch needed. atorvastati 2021- Yes 20mg Take 20 mg Univers n 20 mg 1-12 by mouth ity of tablet 00:00: in the [place] 00 morning. Medical Branch ALPRAZolam 2021-11 Yes 2mg Take 2 mg Un ally 2 mg tablet 1-12 by mouth 3 it y of 00:00: (three) [place] 00 times Medical daily as Branch needed. atorvastati 2021- Yes 20mg Take 20 mg Univers n 20 mg 1-12 by mouth ity of tablet 00:00: in the [place] 00 morning. Medical Branch ALPRAZolam 2021-11 Yes 2mg Take 2 mg Un ally 2 mg tablet 1-12 by mouth 3 it y of 00:00: (three) [place] 00 times Medical daily as Branch needed. atorvastati 2021- Yes 20mg Take 20 mg Univers n 20 mg 1-12 by mouth ity of tablet 00:00: in the [place] 00 morning. Medical Branch ALPRAZolam 2021-11 Yes 2mg Take 2 mg Un ally 2 mg tablet 1-12 by mouth 3 it y of 00:00: (three) [place] 00 times Medical daily as Branch needed. atorvastati 2021- Yes 20mg Take 20 mg Univers n 20 mg 1-12 by mouth ity of tablet 00:00: in the [place] 00 morning. Medical Branch ALPRAZolam 2021- Yes 2mg Take 2 mg Un ally 2 mg tablet 1-12 by mouth 3 it y of 00:00: (three) [place] 00 times Medical daily as Branch needed. atorvastati 2021- Yes 20mg Take 20 mg Univers n 20 mg 1-12 by mouth ity of tablet 00:00: in the [place] 00 morning. Medical Branch hydrocortis 2021-11 Yes APPLY Unive rs one 1 % 1-10 TWICE ity of cream 00:00: DAILY IN [place] 00 AND AROUND Medical THE RECTUM Branch AFTER SITZ BATH hydrocortis 2021-11 Yes APPLY Unive rs one 1 % 1-10 TWICE ity of cream 00:00: DAILY IN [place] 00 AND AROUND Medical THE RECTUM Branch AFTER SITZ BATH hydrocortis 2021-11 Yes APPLY Unive rs one 1 % 1-10 TWICE ity of cream 00:00: DAILY IN [place] 00 AND AROUND Medical THE RECTUM Branch AFTER SITZ BATH hydrocortis 2021-11 Yes APPLY Unive rs one 1 % 1-10 TWICE ity of cream 00:00: DAILY IN [place] 00 AND AROUND Medical THE RECTUM Branch AFTER SITZ BATH hydrocortis 2021-11 Yes APPLY Unive rs one 1 % 1-10 TWICE ity of cream 00:00: DAILY IN [place] 00 AND AROUND Medical THE RECTUM Branch AFTER SITZ BATH hydrocortis 2021-11 Yes APPLY Unive rs one 1 % 1-10 TWICE ity of cream 00:00: DAILY IN [place] 00 AND AROUND Medical THE RECTUM Branch AFTER SITZ BATH benzonatate 2021-11 Yes TAKE 1 Univ ers 100 mg 1-05 CAPSULE BY ity of capsule 00:00: MOUTH [place] 00 THREE Medical TIMES Branch DAILY NEEDED FOR COUGH codeine-gua 2021-11 Yes TAKE 10 ML Univers ifenesin 1-05 BY MOUTH ity of 10-100 mg/5 00:00: TWICE [place] mL oral 00 DAILY Medical solution NEEDED FOR Branc h COUGH metoprolol 2021-11 Yes 50mg Take 50 mg U nivers succinate 1-05 by mouth ity of XL 50 mg 24 00:00: [place] hr tablet 00 morning Medical and 50 mg Branch in the evening. oseltamivir 2021-11 Yes TAKE ONE Un ally 75 mg 1-05 (1) ity of capsule 00:00: [place] 00 BY MOUTH Medical TWICE A Branch DAY. cloNIDine 2021-11 Yes .1mg Take 0.1 Univ ers 0.1 mg 1-05 mg by ity of tablet 00:00: mouth in [place] 00 the Medical morning Branch and 0.1 mg at noon and 0.1 mg in the evening. benzonatate 2021-11 Yes TAKE 1 Univ ers 100 mg 1-05 CAPSULE BY ity of capsule 00:00: MOUTH [place] 00 THREE Medical TIMES Branch DAILY NEEDED FOR COUGH codeine-gua 2021-11 Yes TAKE 10 ML Univers ifenesin 1-05 BY MOUTH ity of 10-100 mg/5 00:00: TWICE [place] mL oral 00 DAILY Medical solution NEEDED FOR Branc h COUGH metoprolol 2021-11 Yes 50mg Take 50 mg U nivers succinate 1-05 by mouth ity of XL 50 mg 24 00:00: [place] hr tablet 00 morning Medical and 50 mg Branch in the evening. oseltamivir 2021-11 Yes TAKE ONE Un ally 75 mg 1-05 (1) ity of capsule 00:00: [place]) [place] 00 BY MOUTH Medical TWICE A Branch DAY. cloNIDine 2021-11 Yes .1mg Take 0.1 Univ ers 0.1 mg 1-05 mg by ity of tablet 00:00: mouth in the Medical morning Branch and 0.1 mg at noon and 0.1 mg in the evening. benzonatate 2021-11 Yes TAKE 1 Univ ers 100 mg 1-05 CAPSULE BY ity of capsule 00:00: MOUTH [place] 00 THREE Medical TIMES Branch DAILY NEEDED FOR COUGH codeine-gua 2021-11 Yes TAKE 10 ML Univers ifenesin 1-05 BY MOUTH ity of 10-100 mg/5 00:00: TWICE [place] mL oral 00 DAILY Medical solution NEEDED FOR Branc h COUGH metoprolol 2021-11 Yes 50mg Take 50 mg U nivers succinate 1-05 by mouth it[facility] XL 50 mg 24 00:[place] 00 morning Medical and 50 mg Branch in the evening. oseltamivir 2021-11 Yes TAKE ONE [facility] 75 mg 1-05 (1) it[facility] capsule 00:00: [place] 00 BY MOUTH Medical TWICE A Branch DAY. cloNIDine 2021-11 Yes .1mg Take 0.1 [facility] ers 0.1 mg 1-05 mg by ity of tablet 00:00: mouth in [place] the Medical morning Branch and 0.1 mg at noon and 0.1 mg in the evening. benzonatate 2021-11 Yes TAKE 1 [facility] ers 100 mg 1-05 CAPSULE BY ity of capsule 00:00: MOUTH [place] 00 THREE Medical TIMES Branch DAILY NEEDED FOR COUGH codeine-gua 2021-11 Yes TAKE 10 ML [facility] ifenesin 1-05 BY MOUTH ity of 10-100 mg/5 00:00: TWICE [place] mL oral 00 DAILY Medical solution NEEDED FOR Branc h COUGH metoprolol 2021-11 Yes 50mg Take 50 mg U nivers succinate 1-05 by mouth ity of XL 50 mg 24 00:00: [place] tablet 00 morning Medical and 50 mg Branch in the evening. oseltamivir 2021-11 Yes TAKE ONE [facility] 75 mg 1-05 (1) [facility] capsule 00:00: [place] 00 BY MOUTH Medical TWICE A Branch DAY. cloNIDine 2021-11 Yes .1mg Take 0.1 [facility] ers 0.1 mg 1-05 mg by ity of tablet 00:00: mouth in [place] the Medical morning Branch and 0.1 mg at noon and 0.1 mg in the evening. benzonatate 2021-11 Yes TAKE 1 [facility] ers 100 mg 1-05 CAPSULE BY ity of capsule 00:00: MOUTH [place] THREE Medical TIMES Branch DAILY NEEDED FOR COUGH codeine-gua 2021-11 Yes TAKE 10 ML [facility] ifenesin 1-05 BY MOUTH ity of 10-100 mg/5 00:00: TWICE [place] mL oral 00 DAILY Medical solution NEEDED FOR Branc h COUGH metoprolol 2021-11 Yes 50mg Take 50 mg U nivers succinate 1-05 by mouth [facility] XL 50 mg 24 00:00: [place] tablet 00 morning Medical and 50 mg Branch in the evening. oseltamivir 2021-11 Yes TAKE ONE [facility] 75 mg 1-05 (1) it[facility] capsule 00:00: [place] 00 BY MOUTH Medical TWICE A Branch DAY. cloNIDine 2021-11 Yes .1mg Take 0.1 [facility] ers 0.1 mg 1-05 mg by ity of tablet 00:00: mouth in [place] the Medical morning Branch and 0.1 mg at noon and 0.1 mg in the evening. benzonatate 2021-11 Yes TAKE 1 [facility] ers 100 mg 1-05 CAPSULE BY ity of capsule 00:00: MOUTH [place] [address] THREE Medical TIMES Branch DAILY NEEDED FOR COUGH codeine-gua 2021-11 Yes TAKE 10 ML [facility] ifenesin 1-05 BY MOUTH ity of 10-100 mg/5 00:00: TWICE [place] mL oral 00 DAILY Medical solution NEEDED FOR Branc h COUGH metoprolol 2021-11 Yes 50mg Take 50 mg U nivers succinate 1-05 by mouth ity of XL 50 mg 24 00:00: [place] tablet 00 morning Medical and 50 mg Branch in the evening. oseltamivir 2021-11 Yes TAKE ONE [facility] 75 mg 1-05 (1) it[facility] capsule 00:00: CAP[place] 00 BY MOUTH Medical TWICE A Branch DAY. cloNIDine 2021-11 Yes .1mg Take 0.1 [facility] ers 0.1 mg 1-05 mg by ity of tablet 00:00: mouth in [place] 00 the Medical morning Branch and 0.1 mg at noon and 0.1 mg in the evening. LISINOPRIL 2021-11 Yes [id number] TAKE 1/2 [facility] 40 mg 1-04 TABLET BY ity of tablet 00:00: MOUTH [place] 00 TWICE Medical DAILY Branch LISINOPRIL 2021-11 Yes [id number] TAKE 1/2 [facility] 40 mg 1-04 TABLET BY ity of tablet 00:00: MOUTH [place] 00 TWICE Medical DAILY Branch LISINOPRIL 2021-11 Yes [id number] TAKE 1/2 [facility] 40 mg 1-04 TABLET BY ity of tablet 00:00: MOUTH [place] 00 TWICE Medical DAILY Branch LISINOPRIL 2021-11 Yes [id number] TAKE 1/2 [facility] 40 mg 1-04 TABLET BY ity of tablet 00:00: MOUTH [place] 00 TWICE Medical DAILY Branch LISINOPRIL 2021-11 Yes [id number] TAKE 1/2 [facility] 40 mg 1-04 TABLET BY ity of tablet 00:00: MOUTH [place] 00 TWICE Medical DAILY Branch LISINOPRIL 2021-11 Yes [id number] TAKE 1/2 [facility] 40 mg 1-04 TABLET BY ity of tablet 00:00: MOUTH [place] 00 TWICE Medical DAILY Branch LISINOPRIL 2021-11 Yes [id number] TAKE 1/2 [facility] 40 mg 1-04 TABLET BY ity of tablet 00:00: MOUTH [place] 00 TWICE Medical DAILY Branch LISINOPRIL 2021-11 [id number] TAKE 1/2 [facility] 40 mg 1-04 12-02 TABLET BY ity of tablet 00:00: 00:00 MOUTH [place] 00 :00 TWICE Medical DAILY Branch hydrALAZINE 2021-11 Yes [id number] TAKE 1 [facility] 100 mg 1-03 TABLET BY ity of tablet 00:00: MOUTH [place] 00 THREE Medical TIMES Branch DAILY lisinopriL 2021-11 Yes [id number] TAKE 1/2 [facility] 40 mg 1-03 TABLET BY ity of tablet 00:00: MOUTH [place] 00 TWICE Medical DAILY Branch metoprolol 2021-11 Yes TAKE 1 Unive rs tartrate 1-03 TABLET BY ity of 100 mg 00:00: MOUTH [place] tablet 00 TWICE Medical DAILY Branch hydrALAZINE 2021-11 Yes [id number] TAKE 1 [facility] 100 mg 1-03 TABLET BY ity of tablet 00:00: MOUTH [place] 00 THREE Medical TIMES Branch DAILY metoprolol 2021-11 Yes TAKE 1 Unive rs tartrate 1-03 TABLET BY ity of 100 mg 00:00: MOUTH [place] tablet 00 TWICE Medical DAILY Branch hydrALAZINE 2021-11 Yes [id number] TAKE 1 [facility] 100 mg 1-03 TABLET BY ity of tablet 00:00: MOUTH [place] 00 THREE Medical TIMES Branch DAILY metoprolol 2021-11 Yes TAKE 1 Unive rs tartrate 1-03 TABLET BY ity of 100 mg 00:00: MOUTH [place] tablet 00 TWICE Medical DAILY Branch hydrALAZINE 2021-11 Yes [id number] TAKE 1 [facility] 100 mg 1-03 TABLET BY ity of tablet 00:00: MOUTH [place] 00 THREE Medical TIMES Branch DAILY metoprolol 2021-11 Yes TAKE 1 Unive rs tartrate 1-03 TABLET BY ity of 100 mg 00:00: MOUTH [place] tablet 00 TWICE Medical DAILY Branch hydrALAZINE 2021-11 Yes [id number] TAKE 1 [facility] 100 mg 1-03 TABLET BY ity of tablet 00:00: MOUTH [place] 00 THREE Medical TIMES Branch DAILY metoprolol 2021-11 Yes TAKE 1 Unive rs tartrate 1-03 TABLET BY ity of 100 mg 00:00: MOUTH [place] tablet 00 TWICE Medical DAILY Branch hydrALAZINE 2021-11 Yes [id number] TAKE 1 [facility] 100 mg 1-03 TABLET BY ity of tablet 00:00: MOUTH [place] 00 THREE Medical TIMES Branch DAILY metoprolol 2021-11 Yes TAKE 1 Unive rs tartrate 1-03 TABLET BY ity of 100 mg 00:00: MOUTH [place] tablet 00 TWICE Medical DAILY Branch hydrALAZINE 2021-11 Yes [id number] TAKE 1 [facility] 100 mg 1-03 TABLET BY ity of tablet 00:00: MOUTH [place] 00 THREE Medical TIMES Branch DAILY metoprolol 2021-11 Yes TAKE 1 Unive rs tartrate 1-03 TABLET BY ity of 100 mg 00:00: MOUTH [place] tablet 00 TWICE Medical DAILY Branch hydrALAZINE 2021-11 Yes [id number] TAKE 1 [facility] 100 mg 1-03 TABLET BY ity of tablet 00:00: MOUTH [place] 00 THREE Medical TIMES Branch DAILY metoprolol 2021-11 Yes TAKE 1 Unive rs tartrate 1-03 TABLET BY ity of 100 mg 00:00: MOUTH [place] tablet 00 TWICE Medical DAILY Branch hydrALAZINE 2021-11 Yes [id number] TAKE 1 [facility] 100 mg 1-03 TABLET BY ity of tablet 00:00: MOUTH [place] 00 THREE Medical TIMES Branch DAILY metoprolol 2021-11 Yes TAKE 1 Unive rs tartrate 1-03 TABLET BY ity of 100 mg 00:00: MOUTH [place] tablet 00 TWICE Medical DAILY Branch hydrALAZINE 2021-11 Yes [id number] TAKE 1 [facility] 100 mg 1-03 TABLET BY ity of tablet 00:00: MOUTH [place] 00 THREE Medical TIMES Branch DAILY metoprolol 2021-11 Yes TAKE 1 Unive rs tartrate 1-03 TABLET BY ity of 100 mg 00:00: MOUTH [place] tablet 00 TWICE Medical DAILY Branch hydrALAZINE 2021-11 Yes [id number] TAKE 1 [facility] 100 mg 1-03 TABLET BY ity of tablet 00:00: MOUTH [place] 00 THREE Medical TIMES Branch DAILY metoprolol 2021-11 Yes TAKE 1 Unive rs tartrate 1-03 TABLET BY ity of 100 mg 00:00: MOUTH [place] tablet 00 TWICE Medical DAILY Branch lisinopriL 2021-11- No [id number] TAKE 1/2 [facility] 40 mg 1-03 11-04 TABLET BY ity of tablet 00:00: 00:00 MOUTH [place] 00 :00 TWICE Medical DAILY Branch allopurinoL 2021-11 Yes 300mg Take 300 U nivers 300 mg 1-01 mg by ity of tablet 00:00: mouth in [place] 00 the Medical morning Branch and 300 mg in the evening. allopurinoL 2021-11 Yes 300mg Take 300 U nivers 300 mg 1-01 mg by ity of tablet 00:00: mouth in [place] 00 the Medical morning Branch and 300 mg in the evening. allopurinoL 2021-11 Yes 300mg Take 300 U nivers 300 mg 1-01 mg by ity of tablet 00:00: mouth in [place] 00 the Medical morning Branch and 300 mg in the evening. allopurinoL 2021-11 Yes 300mg Take 300 U nivers 300 mg 1-01 mg by ity of tablet 00:00: mouth in [place] 00 the Medical morning Branch and 300 mg in the evening. allopurinoL 2021-11 Yes 300mg Take 300 U nivers 300 mg 1-01 mg by ity of tablet 00:00: mouth in [place] 00 the Medical morning Branch and 300 mg in the evening. allopurinoL 2021-11 Yes 300mg Take 300 U nivers 300 mg 1-01 mg by ity of tablet 00:00: mouth in [place] [address] the Medical morning Branch and 300 mg in the evening. triamcinolo 2021-11 Yes APPLY Unive rs ne 0-28 TOPICALLY ity of acetonide 00:00: TO THE [place] 0.1 % cream 00 AFFECTED Medi mari AREA TWICE Branch DAILY triamcinolo 2021-11 Yes APPLY Unive rs ne 0-28 TOPICALLY ity of acetonide 00:00: TO THE [place] 0.1 % cream 00 AFFECTED Medi mari AREA TWICE Branch DAILY triamcinolo 2021-11 Yes APPLY Unive rs ne 0-28 TOPICALLY ity of acetonide 00:00: TO THE [place] 0.1 % cream 00 AFFECTED Medi mari AREA TWICE Branch DAILY triamcinolo 2021-11 Yes APPLY Unive rs ne 0-28 TOPICALLY ity of acetonide 00:00: TO THE [place] 0.1 % cream 00 AFFECTED Medi mari AREA TWICE Branch DAILY triamcinolo 2021-11 Yes APPLY Unive rs ne 0-28 TOPICALLY ity of acetonide 00:00: TO THE [place] 0.1 % cream 00 AFFECTED Medi mari AREA TWICE Branch DAILY triamcinolo 2021-11 Yes APPLY Unive rs ne 0-28 TOPICALLY ity of acetonide 00:00: TO THE [place] 0.1 % cream 00 AFFECTED Medi mari AREA TWICE Branch DAILY ketorolac 2021-11- No [id number] 30mg Univers (TORADOL) 0-25 10-25 9105 ity of injection 16:45: 16:45 [place] 30 mg 00 :00 [facility] Branch ketorolac 2021-11- No [id number] 30mg 30 mg, Univers (TORADOL) 025 08-25 Intramuscu ity of injection 16:45: 16:45 [place], ONCE, [place] 30 mg 00 :00 1 dose, On [facility] 08/25/22 at 1145, Routine ketorolac 2021-11- No [id number] 30mg Univers (TORADOL) 025 08-25 ity of injection 16:45: 16:45 [place] 30 mg 00 :00 [facility] Branch ketorolac 2021-11- No [id number] 30mg 30 mg, Univers (TORADOL) 008-25 Intramuscu ity of injection 16:45: 16:45 [place], ONCE, [place] 30 mg 00 :00 1 dose, On [facility] 08/25/22 at 1145, Routine rizatriptan 2021-11 Yes [id number] 5mg Take 1 Univers 5 mg 0-25 9105 tablet by ity of disintegrat 00:00: mouth [place] ing tablet 00 needed for Med ical Migraine Branch (take 1 on onset of migraine and can repeat in 2 hrs). May repeat in 2 hours if needed rizatriptan 2021-11 Yes [id number] 5mg Take 1 Univers 5 mg 0-25 9105 tablet by ity of disintegrat 00:00: mouth [place] ing tablet 00 needed for Med ical Migraine Branch (take 1 on onset of migraine and can repeat in 2 hrs). May repeat in 2 hours if needed rizatriptan 2021-11 Yes [id number] 5mg Take 1 Univers 5 mg 0-25 9105 tablet by ity of disintegrat 00:00: mouth [place] tablet 00 needed for Med ical Migraine Branch (take 1 on onset of migraine and can repeat in 2 hrs). May repeat in 2 hours if needed rizatriptan 2021-11 Yes [id number] 5mg Take 1 [facility] 5 mg 0-25 9105 tablet by ity of disintegrat 00:00: mouth [place] ing tablet 00 needed for Med ical Migraine Branch (take 1 on onset of migraine and can repeat in 2 hrs). May repeat in 2 hours if needed rizatriptan 2021-11 Yes [id number] 5mg Take 1 [facility] 5 mg 0-25 9105 tablet by ity of disintegrat 00:00: mouth [place] tablet 00 needed for Med ical Migraine Branch (take 1 on onset of migraine and can repeat in 2 hrs). May repeat in 2 hours if needed rizatriptan 2021-11 Yes [id number] 5mg Take 1 [facility] 5 mg 0-25 9105 tablet by ity of disintegrat 00:00: mouth [place] ing tablet 00 needed for Med ical Migraine Branch (take 1 on onset of migraine and can repeat in 2 hrs). May repeat in 2 hours if needed rizatriptan 2021-11 Yes [id number] 5mg Take 1 [facility] 5 mg 0-25 9105 tablet by ity of disintegrat 00:00: mouth [place] tablet 00 needed for Med ical Migraine Branch (take 1 on onset of migraine and can repeat in 2 hrs). May repeat in 2 hours if needed rizatriptan 2021-11 Yes [id number] 5mg Take 1 [facility] 5 mg 0-25 9105 tablet by ity of disintegrat 00:00: mouth [place] tablet 00 needed for Med ical Migraine Branch (take 1 on onset of migraine and can repeat in 2 hrs). May repeat in 2 hours if needed rizatriptan 2021-11 Yes [id number] 5mg Take 1 [facility] 5 mg 0-25 9105 tablet by ity of disintegrat 00:00: mouth [place] tablet 00 needed for Med ical Migraine Branch (take 1 on onset of migraine and can repeat in 2 hrs). May repeat in 2 hours if needed rizatriptan 2021-11 Yes [id number] 5mg Take 1 [facility] 5 mg 0-25 9105 tablet by ity of disintegrat 00:00: mouth [place] ing tablet 00 needed for Med ical Migraine Branch (take 1 on onset of migraine and can repeat in 2 hrs). May repeat in 2 hours if needed rizatriptan 2021-11 Yes [id number] 5mg Take 1 [facility] 5 mg 0-25 9105 tablet by ity of disintegrat 00:00: mouth [place] tablet 00 needed for Med ical Migraine Branch (take 1 on onset of migraine and can repeat in 2 hrs). May repeat in 2 hours if needed rizatriptan 2021-11 Yes [id number] 5mg Take 1 [facility] 5 mg 0-25 9105 tablet by ity of disintegrat 00:00: mouth [place] tablet 00 needed for Med ical Migraine Branch (take 1 on onset of migraine and can repeat in 2 hrs). May repeat in 2 hours if needed rizatriptan 2021-11 Yes [id number] 5mg Take 1 [facility] 5 mg 0-25 9105 tablet by ity of disintegrat 00:00: mouth [place] ing tablet 00 needed for Med ical Migraine Branch (take 1 on onset of migraine and can repeat in 2 hrs). May repeat in 2 hours if needed rizatriptan 2021-11 Yes [id number] 5mg Take 1 Univers 5 mg 0-25 9105 tablet by ity of disintegrat 00:00: mouth [place] ing tablet 00 needed for Med ical Migraine Branch (take 1 on onset of migraine and can repeat in 2 hrs). May repeat in 2 hours if needed rizatriptan 2021-11 Yes [id number] 5mg Take 1 Univers 5 mg 0-25 9105 tablet by ity of disintegrat 00:00: mouth [place] ing tablet 00 needed for Med ical Migraine Branch (take 1 on onset of migraine and can repeat in 2 hrs). May repeat in 2 hours if needed rizatriptan 2021-11 Yes [id number] 5mg Take 1 Univers 5 mg 0-25 9105 tablet by ity of disintegrat 00:00: mouth [place] ing tablet 00 needed for Med ical Migraine Branch (take 1 on onset of migraine and can repeat in 2 hrs). May repeat in 2 hours if needed rizatriptan 2021-11 Yes [id number] 5mg Take 1 Univers 5 mg 0-25 9105 tablet by ity of disintegrat 00:00: mouth [place] ing tablet 00 needed for Med ical Migraine Branch (take 1 on onset of migraine and can repeat in 2 hrs). May repeat in 2 hours if needed NITROGLYCER 2021-[id number] 1 Univers IN 0.4 mg 0-24 TABLET ity of sublingual 00:00: UNDER THE [place] tablet 00 TONGUE Medical EVERY 5 Branch MINUTES NEEDED FOR CHEST PAIN. NITROGLYCER 2021-[id number] 1 Univers IN 0.4 mg 0-24 TABLET ity of sublingual 00:00: UNDER THE [place] tablet 00 TONGUE Medical EVERY 5 Branch MINUTES NEEDED FOR CHEST PAIN. NITROGLYCER 2021-[id number] 1 Univers IN 0.4 mg 0-24 TABLET ity of sublingual 00:00: UNDER THE [place] tablet 00 TONGUE Medical EVERY 5 Branch MINUTES NEEDED FOR CHEST PAIN. NITROGLYCER 2021-[id number] 1 Univers IN 0.4 mg 0-24 TABLET ity of sublingual 00:00: UNDER THE [place] tablet 00 TONGUE Medical EVERY 5 Branch MINUTES NEEDED FOR CHEST PAIN. NITROGLYCER 2021-[id number] 1 Univers IN 0.4 mg 0-24 TABLET ity of sublingual 00:00: UNDER THE [place] tablet 00 TONGUE Medical EVERY 5 Branch MINUTES NEEDED FOR CHEST PAIN. NITROGLYCER 2021-[id number] 1 Univers IN 0.4 mg 0-24 TABLET ity of sublingual 00:00: UNDER THE [place] tablet 00 TONGUE Medical EVERY 5 Branch MINUTES NEEDED FOR CHEST PAIN. NITROGLYCER 2021-[id number] 1 Univers IN 0.4 mg 0-24 TABLET ity of sublingual 00:00: UNDER THE [place] tablet 00 TONGUE Medical EVERY 5 Branch MINUTES NEEDED FOR CHEST PAIN. NITROGLYCER 2021-[id number] 1 Univers IN 0.4 mg 0-24 TABLET ity of sublingual 00:00: UNDER THE [place] tablet 00 TONGUE Medical EVERY 5 Branch MINUTES NEEDED FOR CHEST PAIN. NITROGLYCER 2021-[id number] 1 Univers IN 0.4 mg 0-24 TABLET ity of sublingual 00:00: UNDER THE [place] tablet 00 TONGUE Medical EVERY 5 Branch MINUTES NEEDED FOR CHEST PAIN. NITROGLYCER 2021-[id number] 1 Univers IN 0.4 mg 0-24 TABLET ity of sublingual 00:00: UNDER THE [place] tablet 00 TONGUE Medical EVERY 5 Branch MINUTES NEEDED FOR CHEST PAIN. NITROGLYCER 2021-[id number] 1 Univers IN 0.4 mg 0-24 TABLET ity of sublingual 00:00: UNDER THE [place] tablet 00 TONGUE Medical EVERY 5 Branch MINUTES NEEDED FOR CHEST PAIN. NITROGLYCER 2021-[id number] 1 Univers IN 0.4 mg 0-24 TABLET ity of sublingual 00:00: UNDER THE [place] tablet 00 TONGUE Medical EVERY 5 Branch MINUTES NEEDED FOR CHEST PAIN. NITROGLYCER 2021-[id number] 1 Univers IN 0.4 mg 0-24 TABLET ity of sublingual 00:00: UNDER THE [place] tablet 00 TONGUE Medical EVERY 5 Branch MINUTES NEEDED FOR CHEST PAIN. NITROGLYCER 2021-[id number] 1 Univers IN 0.4 mg 0-24 TABLET ity of sublingual 00:00: UNDER THE [place] tablet 00 TONGUE Medical EVERY 5 Branch MINUTES NEEDED FOR CHEST PAIN. NITROGLYCER 2021-[id number] 1 Univers IN 0.4 mg 0-24 TABLET ity of sublingual 00:00: UNDER THE [place] tablet 00 TONGUE Medical EVERY 5 Branch MINUTES NEEDED FOR CHEST PAIN. NITROGLYCER 2021-[id number] 1 Univers IN 0.4 mg 0-24 TABLET ity of sublingual 00:00: UNDER THE [place] tablet 00 TONGUE Medical EVERY 5 Branch MINUTES NEEDED FOR CHEST PAIN. NITROGLYCER 2021-[id number] 1 Univers IN 0.4 mg 0-24 TABLET ity of sublingual 00:00: UNDER THE [place] tablet 00 TONGUE Medical EVERY 5 Branch MINUTES NEEDED FOR CHEST PAIN. NITROGLYCER 2021-[id number] 1 Univers IN 0.4 mg 0-24 TABLET ity of sublingual 00:00: UNDER THE [place] tablet 00 TONGUE Medical EVERY 5 Branch MINUTES NEEDED FOR CHEST PAIN. NITROGLYCER 2021-[id number] 1 Univers IN 0.4 mg 0-24 TABLET ity of sublingual 00:00: UNDER THE [place] tablet 00 TONGUE Medical EVERY 5 Branch MINUTES NEEDED FOR CHEST PAIN. GABAPENTIN 2021-11 Yes [id number] TAKE 1 [facility] 600 mg 0-21 TABLET BY ity of tablet 00:00: MOUTH [place] 00 THREE Medical TIMES Branch DAILY GABAPENTIN 2021-11 Yes [id number] TAKE 1 [facility] 600 mg 0-21 TABLET BY ity of tablet 00:00: MOUTH [place] 00 THREE Medical TIMES Branch DAILY GABAPENTIN 2- Yes [id number] TAKE 1 [facility] 600 mg 0-21 TABLET BY ity of tablet 00:00: MOUTH THREE Medical TIMES Branch DAILY GABAPENTIN 2-1 Yes [id number] TAKE 1 [facility] 600 mg 0-21 TABLET BY ity of tablet 00:00: MOUTH THREE Medical TIMES Branch DAILY GABAPENTIN 2- Yes [id number] TAKE 1 [facility] 600 mg 0-21 TABLET BY ity of tablet 00:00: MOUTH THREE Medical TIMES Branch DAILY GABAPENTIN 2-1 Yes [id number] TAKE 1 [facility] 600 mg 0-21 TABLET BY ity of tablet 00:00: MOUTH THREE Medical TIMES Branch DAILY GABAPENTIN 2- Yes [id number] TAKE 1 [facility] 600 mg 0-21 TABLET BY ity of tablet 00:00: [facility] THREE Medical TIMES Branch DAILY GABAPENTIN 2- Yes [id number] TAKE 1 [facility] 600 mg 0-21 TABLET BY ity of tablet 00:00: MOUTH THREE Medical TIMES Branch DAILY GABAPENTIN 2- Yes [id number] TAKE 1 [facility] 600 mg 0-21 TABLET BY ity of tablet 00:00: MOUTH THREE Medical TIMES Branch DAILY GABAPENTIN 2021- Yes [id number] TAKE 1 [facility] 600 mg 0-21 TABLET BY ity of tablet 00:00: MOUTH THREE Medical TIMES Branch DAILY GABAPENTIN 2021- Yes [id number] TAKE 1 [facility] 600 mg 0-21 TABLET BY ity of tablet 00:00: MOUTH THREE Medical TIMES Branch DAILY GABAPENTIN 2-2021- No [id number] TAKE 1 [facility] 600 mg 0-21 11-17 TABLET BY ity of tablet 00:00: 00:00 MOUTH [place] 00 :00 THREE Medical TIMES Branch DAILY HYDROcodone 2021- Yes [id number] 1{tbl} Take 1 Un ally -acetaminop 0-06 tablet by ity of hen 7.5-325 00:00: mouth [place] mg per 00 every 6 Medical tablet (six) Branch hours as needed for Pain. Indication s: chronic pain HYDROcodone 2021-1 Yes 2745 1{tbl} Take 1 Un ally [...] for Pain. Indication s: chronic pain HYDROcodone 2021-11- No 2745 1{tbl} Take 1 U nivers -acetaminop 0-06 11-21 tablet by it y of hen 7.5-325 00:00: 00:00 mouth [place] mg per 00 :00 every 6 Medical tablet (six) Branch hours as needed for Pain. Indication s: chronic pain HYDROcodone 2021-11 No 2745 1{tbl} Take 1 U nivers -acetaminop 0-06 11-21 tablet by it y of hen 7.5-325 00:00: 00:00 mouth [place] mg per 00 :00 every 6 Medical tablet (six) Branch hours as needed for Pain. Indication s: chronic pain HYDRALAZINE 2021-11 Yes [id number] TAKE 1 [facility] 100 mg 0-05 TABLET BY ity of tablet 00:00: MOUTH [place] THREE Medical TIMES Branch DAILY HYDRALAZINE 2021-11 Yes [id number] TAKE 1 [facility] 100 mg 0-05 TABLET BY ity of tablet 00:00: MOUTH THREE Medical TIMES Branch DAILY HYDRALAZINE 2021-11 Yes [id number] TAKE 1 [facility] 100 mg 0-05 TABLET BY ity of tablet 00:00: MOUTH [place] THREE Medical TIMES Branch DAILY HYDRALAZINE 2021-11 Yes [id number] TAKE 1 [facility] 100 mg 0-05 TABLET BY ity of tablet 00:00: [facility] THREE Medical TIMES Branch DAILY HYDRALAZINE 2021-11 Yes [id number] TAKE 1 Univers 100 mg 0-05 TABLET BY ity of tablet 00:00: MOUTH THREE Medical TIMES Branch DAILY HYDRALAZINE 2021-11 Yes [id number] TAKE 1 [facility] 100 mg 0-05 TABLET BY ity of tablet 00:00: [facility] THREE Medical TIMES Branch DAILY HYDRALAZINE 2021-11 Yes [id number] TAKE 1 [facility] 100 mg 0-05 TABLET BY ity of tablet 00:00: MOUTH [place] THREE Medical TIMES Branch DAILY HYDRALAZINE 2021-11 Yes [id number] TAKE 1 [facility] 100 mg 0-05 TABLET BY ity of tablet 00:00: [facility] THREE Medical TIMES Branch DAILY HYDRALAZINE 2021-11 Yes [id number] TAKE 1 [facility] 100 mg 0-05 TABLET BY ity of tablet 00:00: [facility] THREE Medical TIMES Branch DAILY HYDRALAZINE 2021-11 Yes [id number] TAKE 1 [facility] 100 mg 0-05 TABLET BY ity of tablet 00:00: [facility] THREE Medical TIMES Branch DAILY HYDRALAZINE 2021-11 Yes [id number] TAKE 1 [facility] 100 mg 0-05 TABLET BY ity of tablet 00:00: [facility] THREE Medical TIMES Branch DAILY HYDRALAZINE 2021-11- No [id number] TAKE 1 [facility] 100 mg 0-05 11-03 TABLET BY ity of tablet 00:00: 00:00 MOUTH [place] 00 :00 THREE Medical TIMES Branch DAILY NITROGLYCER [address] 1 Uni vers [...] x 5/16 Syrg Branch GABAPENTIN 2021-0 Yes [id number] TAKE 1 [facility] 600 mg 9-26 TABLET [...] x 5/16 Syrg Branch GABAPENTIN 2021-0 Yes [id number] TAKE 1 [facility] 600 mg 9-26 TABLET [...] x 5/16 Syrg Branch GABAPENTIN 2021-0 Yes [id number] TAKE 1 [facility] 600 mg 9-26 TABLET [...] x 5/16 Syrg Branch GABAPENTIN 2021-0 Yes [id number] TAKE 1 [facility] 600 mg 9-26 TABLET BY ity of tablet 00:00: MOUTH [place] 00 THREE Medical TIMES Branch DAILY NITROGLYCER 2022-[address] 1 Uni vers IN 0.4 [...] 00 Medical x 5/16 Syrg Branch INSULIN 2-0 Yes USE TWICE Unive rs SYRINGE-NEE 9-26 DAILY WITH it y of DLE U-100 1 00:00: MEALS [place] mL 31 gauge 00 Medical x 5/16 Syrg Branch INSULIN 2022-0 Yes USE TWICE Unive rs SYRINGE-NEE 9-26 DAILY WITH it y of DLE U-100 1 00:00: MEALS [place] mL 31 gauge 00 Medical x 5/16 Syrg Branch INSULIN 2022-0 Yes USE TWICE Unive rs SYRINGE-NEE 9-26 DAILY WITH it y of DLE U-100 1 00:00: MEALS [place] mL 31 gauge 00 Medical x 5/16 Syrg Branch INSULIN 2022-0 Yes USE TWICE Unive rs SYRINGE-NEE 9-26 DAILY WITH it y of DLE U-100 1 00:00: MEALS [facility] 31 gauge 00 Medical x 5/16 Syrg Branch INSULIN 2022-0 Yes USE TWICE Unive rs SYRINGE-NEE 9-26 DAILY WITH it y of DLE U-100 1 00:00: MEALS [facility] 31 gauge 00 Medical x 5/16 Syrg Branch INSULIN 2022-0 Yes USE TWICE Unive rs SYRINGE-NEE 9-26 DAILY WITH it y of DLE U-100 1 00:00: MEALS [facility] 31 gauge 00 Medical x 5/16 Syrg Branch amLODIPine 2022-0 Yes 5mg Take 5 mg Un ally 5 mg tablet 9-26 by mouth ity of 00:00: in the [place] morning. Medical Branch INSULIN 2022-0 Yes USE TWICE Unive rs SYRINGE-NEE 9-26 DAILY WITH it y of DLE U-100 1 00:00: MEALS [facility] 31 gauge 00 Medical x 5/16 Syrg Branch amLODIPine 2022-0 Yes 5mg Take 5 mg Un ally 5 mg tablet 9-26 by mouth ity of 00:00: in the [place] morning. Medical Branch INSULIN 2022-0 Yes USE TWICE Unive rs SYRINGE-NEE 9-26 DAILY WITH it y of DLE U-100 1 00:00: MEALS [place] mL 31 gauge 00 Medical x 5/16 Syrg Branch amLODIPine 2022-0 Yes 5mg Take 5 mg Un ally 5 mg tablet 9-26 by mouth ity of 00:00: in the [place] morning. Medical Branch INSULIN 2022-0 Yes USE TWICE Unive rs SYRINGE-NEE 9-26 DAILY WITH it y of DLE U-100 1 00:00: MEALS [place] 31 gauge 00 Medical x 5/16 Syrg Branch amLODIPine 2021-0 Yes 5mg Take 5 mg Un ally 5 mg tablet 9-26 by mouth ity of 00:00: in the [place] 00 morning. Medical Branch INSULIN 2021-0 Yes USE TWICE Unive rs SYRINGE-NEE 9-26 DAILY WITH it y of DLE U-100 1 00:00: MEALS [place] mL 31 gauge 00 Medical x 5/16 Syrg Branch amLODIPine 2021-0 Yes 5mg Take 5 mg Un ally 5 mg tablet 9-26 by mouth ity of 00:00: in the [place] 00 morning. Medical Branch INSULIN 2021-0 Yes USE TWICE Unive rs SYRINGE-NEE 9-26 DAILY WITH it y of DLE U-100 1 00:00: MEALS [place] mL 31 gauge 00 Medical x 5/16 Syrg Branch amLODIPine 2021-0 Yes 5mg Take 5 mg Un ally 5 mg tablet 9-26 by mouth ity of 00:00: in the [place] [id number] morning. Medical Branch NITROGLYCER 2021-0 2021- No PLACE 1 Un ally IN 0.4 mg 9-26 10-24 TABLET ity of sublingual 00:00: 00:00 UNDER THE [place] tablet 00 :00 TONGUE Medical EVERY 5 Branch MINUTES NEEDED FOR CHEST PAIN. GABAPENTIN 2021-0 202- No [id number] TAKE 1 [facility] 600 mg 9-26 10-21 TABLET BY ity of tablet 00:00: 00:00 MOUTH [place] 00 :00 THREE Medical TIMES Branch DAILY COLCHICINE 2021-0 Yes [id number] .6mg TAKE 1 U nivers 0.6 mg 9-19 TABLET BY ity of tablet 00:00: MOUTH [place] 00 DAILY Medical Branch COLCHICINE 2-0 Yes [id number] .6mg TAKE 1 U nivers 0.6 mg 9-19 TABLET BY ity of tablet 00:00: MOUTH [place] 00 DAILY Medical Branch COLCHICINE 2022-0 Yes [id number] .6mg TAKE 1 U nivers 0.6 mg 9-19 TABLET BY ity of tablet 00:00: MOUTH [place] 00 DAILY Medical Branch COLCHICINE 2-0 Yes [id number] .6mg TAKE 1 U nivers 0.6 mg 9-19 TABLET BY ity of tablet 00:00: MOUTH [place] 00 DAILY Medical Branch COLCHICINE 2-0 Yes [id number] .6mg TAKE 1 U nivers 0.6 mg 9-19 TABLET BY ity of tablet 00:00: MOUTH [place] DAILY Medical Branch COLCHICINE 2022-0 Yes [id number] .6mg TAKE 1 U nivers 0.6 mg 9-19 TABLET BY ity of tablet 00:00: MOUTH DAILY Medical Branch COLCHICINE 2022-0 Yes [id number] .6mg TAKE 1 U nivers 0.6 mg 9-19 TABLET BY ity of tablet 00:00: [facility] DAILY Medical Branch COLCHICINE 2022-0 Yes [id number] .6mg TAKE 1 U nivers 0.6 mg 9-19 TABLET BY ity of tablet 00:00: MOUTH [place] DAILY Medical Branch COLCHICINE 2022-0 Yes [id number] .6mg TAKE 1 U nivers 0.6 mg 9-19 TABLET BY ity of tablet 00:00: [facility] DAILY Medical Branch COLCHICINE 2022-0 Yes [id number] .6mg TAKE 1 U nivers 0.6 mg 9-19 TABLET BY ity of tablet 00:00: [facility] DAILY Medical Branch COLCHICINE 2022-0 Yes [id number] .6mg TAKE 1 U nivers 0.6 mg 9-19 TABLET BY ity of tablet 00:00: [facility] DAILY Medical Branch COLCHICINE 2022-0 Yes [id number] .6mg TAKE 1 U nivers 0.6 mg 9-19 TABLET BY ity of tablet 00:00: [facility] DAILY Medical Branch COLCHICINE 2022-0 Yes [id number] .6mg TAKE 1 U nivers 0.6 mg 9-19 TABLET BY ity of tablet 00:00: [facility] DAILY Medical Branch COLCHICINE 2022-0 Yes [id number] .6mg TAKE 1 U nivers 0.6 mg 9-19 TABLET BY ity of tablet 00:00: [facility] DAILY Medical Branch COLCHICINE 2022-0 Yes [id number] .6mg TAKE 1 U nivers 0.6 mg 9-19 TABLET BY ity of tablet 00:00: [facility] DAILY Medical Branch COLCHICINE 2022-0 Yes [id number] .6mg TAKE 1 U nivers 0.6 mg 9-19 TABLET BY ity of tablet 00:00: [facility] DAILY Medical Branch COLCHICINE 2022-0 Yes [id number] .6mg TAKE 1 U nivers 0.6 mg 9-19 TABLET BY ity of tablet 00:00: MOUTH [place] 00 DAILY Medical Branch COLCHICINE 2022-0 Yes [id number] .6mg TAKE 1 U nivers 0.6 mg 9-19 TABLET BY ity of tablet 00:00: MOUTH [place] DAILY Medical Branch COLCHICINE 2022-0 Yes [id number] .6mg TAKE 1 U nivers 0.6 mg 9-19 TABLET BY ity of tablet 00:00: MOUTH DAILY Medical Branch COLCHICINE 2022-0 Yes [id number] .6mg TAKE 1 U nivers 0.6 mg 9-19 TABLET BY ity of tablet 00:00: MOUTH [place] 00 DAILY Medical Branch COLCHICINE 2022-0 Yes [id number] .6mg TAKE 1 U nivers 0.6 mg 9-19 TABLET BY ity of tablet 00:00: MOUTH DAILY Medical Branch COLCHICINE 2022-0 Yes [id number] .6mg TAKE 1 U nivers 0.6 mg 9-19 TABLET BY ity of tablet 00:00: MOUTH DAILY Medical Branch COLCHICINE 2022-0 Yes [id number] .6mg TAKE 1 U nivers 0.6 mg 9-19 TABLET BY ity of tablet 00:00: MOUTH DAILY Medical Branch COLCHICINE 2022-0 Yes [id number] .6mg TAKE 1 U nivers 0.6 mg 9-19 TABLET BY ity of tablet 00:00: MOUTH DAILY Medical Branch COLCHICINE 2022-0 Yes [id number] .6mg TAKE 1 U nivers 0.6 mg 9-19 TABLET BY ity of tablet 00:00: MOUTH DAILY Medical Branch COLCHICINE 2022-0 Yes [id number] .6mg TAKE 1 U nivers 0.6 mg 9-19 TABLET BY ity of tablet 00:00: MOUTH DAILY Medical Branch HYDROcodone 2021-0 Yes [id number] [...] 2021-0 Yes 2745 1{tbl} Take 1 Un alyl -acetaminop 9-08 tablet by ity of hen [...] Indication s: chronic pain albuterol Yes albuterol [place] [facility] (PROVENTIL) 07-08 sulfate [facility] (2.5 mg/3 12:00: 2.5 mg/3 of mL) 0.083% 32 mL (0.083 Medi patsy nebulizer %) e solution solution for nebulizati on metoprolol Yes 100mg Take 100 [facility] (TOPROL-XL) - mg by [facility] 100 MG XL 12:00: mouth. of tablet 32 Medicin e albuterol Yes albuterol [place] [facility] 108 (90 9- sulfate [facility] base) 12:00: HFA 90 of mcg/act 32 mcg/actuat Medici n inhaler ion e aerosol inhaler Mesalamine Yes mesalamine [facility] 0.375 g 07-08 ER 0.375 [facility] CP24 12:00: gram of 32 capsule,ex Medicin tended e release 24 hr hydrochloro Yes 25mg Take 25 mg [facility] thiazide 07-08 by mouth. Colleg e (HYDRODIURI 12:00: of L) 25 MG 32 Medicin tablet e diclofenac Yes diclofenac [facility] (VOLTAREN) 07-08 sodium 75 [facility] 75 MG EC 12:00: mg of tablet 32 tablet,del Medicin ayed e release TAKE 1 TABLET BY MOUTH TWICE DAILY WITH MEALS cyclobenzap Yes cyclobenza [facility] rine 07-08 wiley 10 [facility] (FLEXERIL) 12:00: mg tablet of 10 MG 32 TAKE 1 Medicin tablet TABLET BY e MOUTH EVERY NIGHT AT BEDTIME NEEDED FOR MUSCLE SPASM OR EAR PAIN clonidine Yes clonidine [facility] (CATAPRESS) 07-08 HCl 0.2 mg Co llege 0.2 MG 12:00: tablet of tablet 32 TAKE 1 Medicin TABLET BY e MOUTH THREE TIMES DAILY atorvastati Yes atorvastat [facility] n (LIPITOR) 07-08 in 20 mg Hiro [...] 100 [facility] (ZYLOPRIM) 07-08 mg by College 100 MG 12:00: mouth. of tablet 32 Medicin e Fluticasone Yes Trelegy [facility] -Umeclidin- 07-08 Ellipta [facility] Vilant 12:00: 100 of (TRELEGY 32 mcg-62.5 Medicin ELLIPTA) mcg-25 mcg e 100-62.5-25 powder for MCG/INH inhalation AEPB INHALE 1 PUFF BY MOUTH EVERY DAY albuterol Yes albuterol [place] [facility] (PROVENTIL) 07-08 sulfate Colle [facility] (2.5 mg/3 12:00: 2.5 mg/3 of mL) 0.083% 32 mL (0.083 Medi patsy nebulizer %) e solution solution for nebulizati on metoprolol Yes 100mg Take 100 [facility] (TOPROL-XL) 07-08 mg by [facility] 100 MG XL 12:00: mouth. of tablet 32 Medicin e albuterol Yes albuterol [place] [facility] 108 (90 07-08 sulfate [facility] base) 12:00: HFA 90 of mcg/act 32 mcg/actuat Medici n inhaler ion e aerosol inhaler Mesalamine Yes mesalamine [facility] 0.375 g 07-08 ER 0.375 [facility] CP24 12:00: gram of 32 capsule,ex Medicin [...] TWICE DAILY WITH MEALS cyclobenzap Yes cyclobenza [facility] rine 07-08 wiley 10 [facility] (FLEXERIL) 12:00: mg tablet of 10 MG 32 TAKE 1 Medicin tablet TABLET BY e MOUTH EVERY NIGHT AT BEDTIME NEEDED FOR MUSCLE SPASM OR EAR PAIN clonidine Yes clonidine [facility] (CATAPRESS) 07-08 HCl 0.2 mg Co llege 0.2 MG 12:00: tablet of tablet 32 TAKE 1 Medicin TABLET BY e MOUTH THREE TIMES DAILY atorvastati Yes atorvastat [facility] n (LIPITOR) 07-08 in 20 mg [facility] 20 MG 12:00: tablet of tablet 32 TAKE 1 Medicin TABLET BY e MOUTH EVERY DAY amlodipine Yes 10mg Take 10 mg [facility] (NORVASC) 07-08 by mouth. Colle ge 10 MG 12:00: of tablet 32 Medicin e alprazolam Yes 2mg Take 2 mg [facility] (XANAX) 9-07 by mouth. College 0.25 MG 12:00: of tablet 32 Medicin e allopurinol Yes 100mg Take 100 [facility] (ZYLOPRIM) 9-07 mg by [facility] 100 MG 12:00: mouth. of tablet 32 Medicin e Fluticasone Yes Trelegy [place] [facility] -Umeclidin- 9-07 Ellipta [facility] 12:00: 100 of (TRELEGY 32 mcg-62.5 Medicin ELLIPTA) mcg-25 mcg e 100-62.5-25 powder for MCG/INH inhalation AEPB INHALE 1 PUFF BY MOUTH EVERY DAY HYDRALAZINE 0 Yes [id number] TAKE 1 [facility] 100 mg 9-06 TABLET BY ity of tablet 00:00: MOUTH THREE Medical TIMES Branch DAILY HYDRALAZINE 2021-0 Yes [id number] TAKE 1 [facility] 100 mg 9-06 TABLET BY ity of tablet 00:00: MOUTH THREE Medical TIMES Branch DAILY HYDRALAZINE 2021-0 Yes [id number] TAKE 1 [facility] 100 mg 9-06 TABLET BY ity of tablet 00:00: MOUTH THREE Medical TIMES Branch DAILY HYDRALAZINE 2021-0 Yes [id number] TAKE 1 [facility] 100 mg 9-06 TABLET BY ity of tablet 00:00: MOUTH THREE Medical TIMES Branch DAILY HYDRALAZINE 2021-0 Yes [id number] TAKE 1 [facility] 100 mg 9-06 TABLET BY ity of tablet 00:00: MOUTH THREE Medical TIMES Branch DAILY HYDRALAZINE 2021-0 Yes [id number] TAKE 1 [facility] 100 mg 9-06 TABLET BY ity of tablet 00:00: MOUTH 00 THREE Medical TIMES Branch DAILY HYDRALAZINE 2021-0 2021- No [id number] TAKE 1 [facility] 100 mg 9-06 10-05 TABLET BY ity of tablet 00:00: 00:00 MOUTH [place] 00 :00 THREE Medical TIMES Branch DAILY GABAPENTIN 2021-0 Yes [id number] TAKE 1 [facility] 600 mg 8-31 TABLET BY ity of tablet 00:00: MOUTH [place] 00 THREE Medical TIMES Branch DAILY GABAPENTIN 2021-0 Yes [id number] TAKE 1 [facility] 600 mg 8-31 TABLET BY ity of tablet 00:00: MOUTH [place] 00 THREE Medical TIMES Branch DAILY GABAPENTIN 2021-0 Yes [id number] TAKE 1 [facility] 600 mg 8-31 TABLET BY ity of tablet 00:00: MOUTH [place] 00 THREE Medical TIMES Branch DAILY GABAPENTIN 2021-0 Yes [id number] TAKE 1 [facility] 600 mg 8-31 TABLET BY ity of tablet 00:00: MOUTH [place] 00 THREE Medical TIMES Branch DAILY GABAPENTIN 2021-0 2021- No [id number] TAKE 1 [facility] 600 mg 8-31 - TABLET BY ity of tablet 00:00: 00:00 MOUTH [place] 00 :00 THREE Medical TIMES Branch DAILY METOPROLOL 2021-0 Yes TAKE 1 Unive rs TARTRATE 8-22 [...] 2021-0 Yes TAKE 1 Unive rs TARTRATE 8-22 TABLET BY ity of 100 mg 00:00: MOUTH [place] tablet 00 TWICE Medical DAILY Branch METOPROLOL 2021-0 Yes TAKE 1 Unive rs TARTRATE 8-22 TABLET BY ity of 100 mg 00:00: MOUTH [place] tablet 00 TWICE Medical DAILY Branch METOPROLOL 2021-0 Yes TAKE 1 Unive rs TARTRATE 8-22 TABLET BY ity of 100 mg 00:00: MOUTH [place] tablet 00 TWICE Medical DAILY Branch METOPROLOL 2021-0 Yes TAKE 1 Unive rs TARTRATE 8-22 TABLET BY ity of 100 mg 00:00: MOUTH [place] tablet 00 TWICE Medical DAILY Branch METOPROLOL 2021-0 Yes TAKE 1 Unive rs TARTRATE 8-22 TABLET BY ity of 100 mg 00:00: MOUTH [place] tablet 00 TWICE Medical DAILY Branch METOPROLOL Yes TAKE 1 Unive rs TARTRATE 8-22 TABLET BY ity of 100 mg 00:00: MOUTH [place] tablet 00 TWICE Medical DAILY Branch METOPROLOL Yes TAKE 1 Unive rs TARTRATE 8-22 TABLET BY ity of 100 mg 00:00: MOUTH [place] tablet 00 TWICE Medical DAILY Branch METOPROLOL Yes TAKE 1 Unive rs TARTRATE 8-22 TABLET BY ity of 100 mg 00:00: MOUTH [place] tablet 00 TWICE Medical DAILY Branch METOPROLOL Yes TAKE 1 Unive rs TARTRATE 8-22 TABLET BY ity of 100 mg 00:00: MOUTH [place] tablet 00 TWICE Medical DAILY Branch METOPROLOL Yes TAKE 1 Unive rs TARTRATE 8-22 TABLET BY ity of 100 mg 00:00: MOUTH [place] tablet 00 TWICE Medical DAILY Branch METOPROLOL Yes TAKE 1 Unive rs TARTRATE 8-22 TABLET BY ity of 100 mg 00:00: MOUTH [place] tablet 00 TWICE Medical DAILY Branch METOPROLOL Yes TAKE 1 Unive rs TARTRATE 8-22 TABLET BY ity of 100 mg 00:00: MOUTH [place] tablet 00 TWICE Medical DAILY Branch METOPROLOL Yes TAKE 1 Unive rs TARTRATE 8-22 TABLET BY ity of 100 mg 00:00: MOUTH [place] tablet 00 TWICE Medical DAILY Branch METOPROLOL Yes TAKE 1 Unive rs TARTRATE 8-22 TABLET BY ity of 100 mg 00:00: MOUTH [place] tablet 00 TWICE Medical DAILY Branch metoprolol Yes [id number] TAKE 1 [facility] (LOPRESSOR) 8-22 TABLET BY Col lege 100 MG 00:00: MOUTH of tablet 00 TWICE Medicin DAILY e metoprolol Yes [id number] TAKE 1 [facility] (LOPRESSOR) 8-22 TABLET BY Col lege 100 MG 00:00: MOUTH of tablet 00 TWICE Medicin DAILY e METOPROLOL 2021- No TAKE 1 Univ ers TARTRATE 8-22 -03 TABLET BY ity o f 100 mg 00:00: 00:00 MOUTH [place] tablet 00 :00 TWICE Medical DAILY Branch BD PEN Yes [id number] USE [facility] or NEEDLE DEVORAH 06-17 DIRECTED [facility] 2ND GEN 32G 00:00: EVERY DAY o f X 4 MM MISC 00 Medicin e alprazolam Yes [id number] TAKE 1 [facility] (XANAX) 2 8-17 TABLET BY Colle ge MG tablet 00:00: MOUTH of 00 THREE Medicin TIMES e DAILY NEEDED FOR ANXIETY BD PEN Yes [id number] USE [facility] or NEEDLE DEVORAH 17 DIRECTED [facility] 2ND GEN 32G 00:00: EVERY DAY o f X 4 MM MISC 00 Medicin e alprazolam Yes [id number] TAKE 1 [facility] (XANAX) 2 8-17 TABLET BY Colle ge MG tablet 00:00: MOUTH of 00 THREE Medicin TIMES e DAILY NEEDED FOR ANXIETY albuterol Yes albuterol [place] [facility] (PROVENTIL) -16 sulfate Colle ge (2.5 mg/3 08:03: 2.5 mg/3 of mL) 0.083% 35 mL (0.083 Medi patsy nebulizer %) e solution solution for nebulizati on Insulin Yes Inject [facility] Aspart Prot -16 into the Hiro ege & Aspart 08:03: skin. of (70-30) 100 35 Medicin UNIT/ML e SUPN mirtazapine Yes 15mg Take 15 mg [facility] (REMERON) 8-16 by mouth. Colle ge 15 MG 08:03: of tablet 35 Medicin e metoprolol Yes 100mg Take 100 [facility] (TOPROL-XL) 8-16 mg by [facility] 100 MG XL 08:03: mouth. of tablet 35 Medicin e pantoprazol Yes 20mg Take 20 mg [facility] e 8-16 by mouth [facility] (PROTONIX) 08:00: daily. of 20 MG 33 [...] NEEDED FOR PAIN OR CHRONIC PAIN LISINOPRIL 2022-0 Yes [id number] TAKE 1/2 [facility] 40 mg 8-08 TABLET BY ity of tablet 00:00: MOUTH [place] 00 TWICE Medical DAILY Branch HYDROcodone 2-0 Yes [id number] 1{tbl} Take 1 Un ally -acetaminop 8-08 tablet by ity of hen 7.5-325 00:00: mouth [place] mg per 00 every 6 Medical tablet (six) Branch hours as needed for Pain. Indication s: chronic pain HYDROcodone 2-0 Yes 2745 1{tbl} Take 1 Un ally -acetaminop 8-08 tablet by ity of hen 7.5-325 00:00: mouth [place] mg per 00 every 6 Medical tablet (six) Branch hours as needed for Pain. Indication s: chronic pain LISINOPRIL 2021-0 Yes [id number] TAKE 1/2 [facility] 40 mg 8-08 TABLET BY ity of tablet 00:00: MOUTH [place] 00 TWICE Medical DAILY Branch HYDROcodone 2-0 Yes [id number] 1{tbl} Take 1 Un ally -acetaminop 8-08 tablet by ity of hen 7.5-325 00:00: mouth [place] mg per 00 every 6 Medical tablet (six) Branch hours as needed for Pain. Indication s: chronic pain LISINOPRIL 2-0 Yes [id number] TAKE 1/2 [facility] 40 mg 8-08 TABLET BY ity of tablet 00:00: MOUTH [place] 00 TWICE Medical DAILY Branch HYDROcodone 2-0 Yes [id number] 1{tbl} Take 1 Un ally -acetaminop 8-08 tablet by ity of hen 7.5-325 00:00: mouth [place] mg per 00 every 6 Medical tablet (six) Branch hours as needed for Pain. Indication s: chronic pain LISINOPRIL 2022-0 Yes [id number] TAKE 1/2 [facility] 40 mg 8-08 TABLET BY ity of tablet 00:00: MOUTH [place] 00 TWICE Medical DAILY Branch LISINOPRIL 2022-0 Yes [id number] TAKE 1/2 [facility] 40 mg 8-08 TABLET BY ity of tablet 00:00: MOUTH [place] 00 TWICE Medical DAILY Branch LISINOPRIL 2022-0 Yes [id number] TAKE 1/2 [facility] 40 mg 8-08 TABLET BY ity of tablet 00:00: MOUTH TWICE Medical DAILY Branch LISINOPRIL 2022-0 Yes [id number] TAKE 1/2 [facility] 40 mg 8-08 TABLET BY ity of tablet 00:00: MOUTH TWICE Medical DAILY Branch LISINOPRIL 2022-0 Yes [id number] TAKE 1/2 [facility] 40 mg 8-08 TABLET BY ity of tablet 00:00: MOUTH TWICE Medical DAILY Branch LISINOPRIL 2022-0 Yes [id number] TAKE 1/2 [facility] 40 mg 8-08 TABLET BY ity of tablet 00:00: MOUTH TWICE Medical DAILY Branch LISINOPRIL 2022-0 Yes [id number] TAKE 1/2 [facility] 40 mg 8-08 TABLET BY ity of tablet 00:00: MOUTH TWICE Medical DAILY Branch LISINOPRIL 2022-0 Yes [id number] TAKE 1/2 [facility] 40 mg 8-08 TABLET BY ity of tablet 00:00: MOUTH TWICE Medical DAILY Branch LISINOPRIL 2022-0 Yes [id number] TAKE 1/2 [facility] 40 mg 8-08 TABLET BY ity of tablet 00:00: MOUTH TWICE Medical DAILY Branch LISINOPRIL 2022-0 Yes [id number] TAKE 1/2 [facility] 40 mg 8-08 TABLET BY ity of tablet 00:00: MOUTH TWICE Medical DAILY Branch LISINOPRIL 2022-0 Yes [id number] TAKE 1/2 [facility] 40 mg 8-08 TABLET BY ity of tablet 00:00: TWICE Medical DAILY Branch LISINOPRIL 2022-0 Yes [id number] TAKE 1/2 [facility] 40 mg 8-08 TABLET BY ity of tablet 00:00: MOUTH TWICE Medical DAILY Branch LISINOPRIL 2022-0 Yes [id number] TAKE 1/2 [facility] 40 mg 8-08 TABLET BY ity of tablet 00:00: MOUTH 00 TWICE Medical DAILY Branch LISINOPRIL 2022-0 Yes [id number] TAKE 1/2 [facility] 40 mg 8-08 TABLET BY ity of tablet 00:00: MOUTH TWICE Medical DAILY Branch LISINOPRIL 2022-0 Yes [id number] TAKE 1/2 [facility] 40 mg 8-08 TABLET BY ity of tablet 00:00: MOUTH 00 TWICE Medical DAILY Branch LISINOPRIL 0 Yes [id number] TAKE 1/2 [facility] 40 mg 8-08 TABLET BY ity of tablet 00:00: MOUTH [place] 00 TWICE Medical DAILY Branch LISINOPRIL 0 Yes [id number] TAKE 1/2 [facility] 40 mg 8-08 TABLET BY ity of tablet 00:00: MOUTH [place] 00 TWICE Medical DAILY Branch lisinopril Yes TAKE 1/2 [facility] (PRINIVIL, 8-08 TABLET BY Hiro e[facility] CFBankSTRIL) 40 00:00: MOUTH of MG tablet 00 TWICE Medicin DAILY e hydrALAZINE Yes TAKE 1 [facility] (APRESOLINE 8-08 TABLET BY Col lege ) 100 MG 00:00: MOUTH of tablet 00 THREE Medicin TIMES e DAILY lisinopril Yes TAKE 1/2 [facility] (PRINIVIL, 8-08 TABLET BY [facility] [employer] ZESTRIL) 40 00:00: MOUTH of MG tablet 00 TWICE Medicin DAILY e hydrALAZINE Yes TAKE 1 [facility] (APRESOLINE 8-08 TABLET BY Col lege ) 100 MG 00:00: MOUTH of tablet 00 THREE Medicin TIMES e DAILY lisinopril Yes TAKE 1/2 [facility] [facility] (PRINIVIL, 8-08 TABLET BY [employer] [facility] ZESTRIL) 40 00:00: MOUTH of MG tablet 00 TWICE Medicin DAILY e LISINOPRIL 0 2021- No [id number] TAKE 1/2 [facility] 40 mg 06-08 TABLET BY ity of tablet 00:00: 00:00 MOUTH [place] 00 :00 TWICE Medical DAILY Branch HYDROcodone 0 2021- No [id number] 1{tbl} Take 1 U nivers -acetaminop 06-08 tablet by it y of hen 7.5-325 [...] UNDER THE SKIN EVERY EVENING HUMULIN Yes [id number] ADMINISTER Univers 70/30 U-100 8-03 70 UNITS ity of INSULIN 100 00:00: [place] unit/mL 00 SKIN EVERY Medica l (70-30) MORNING Branch suspension THEN ADMINISTER 60 UNITS UNDER THE SKIN EVERY EVENING HUMULIN Yes [id number] ADMINISTER Univers 70/30 U-100 8-03 70 UNITS ity of INSULIN 100 00:00: UNDER THE [place] unit/mL 00 SKIN EVERY Medica l (70-30) MORNING Branch suspension THEN ADMINISTER 60 UNITS UNDER THE SKIN EVERY EVENING GABAPENTIN Yes [id number] TAKE 1 [facility] 600 mg 8-03 TABLET BY ity of tablet 00:00: MOUTH [place] THREE Medical TIMES Branch DAILY HUMULIN Yes [id number] ADMINISTER Univers 70/30 U-100 8-03 70 UNITS ity of INSULIN 100 00:00: UNDER THE [place] unit/mL 00 SKIN EVERY Medica l (70-30) MORNING Branch suspension THEN ADMINISTER 60 UNITS UNDER THE SKIN EVERY EVENING GABAPENTIN Yes [id number] TAKE 1 [facility] 600 mg 8-03 TABLET BY ity of tablet 00:00: MOUTH [place] THREE Medical TIMES Branch DAILY HUMULIN Yes [id number] ADMINISTER Univers 70/30 U-100 8-03 70 UNITS ity of INSULIN 100 00:00: UNDER [place] unit/mL 00 SKIN EVERY Medica l (70-30) MORNING Branch suspension THEN ADMINISTER 60 UNITS UNDER THE SKIN EVERY EVENING GABAPENTIN Yes [id number] TAKE 1 [facility] 600 mg 8-03 TABLET BY ity of tablet 00:00: MOUTH [place] THREE Medical TIMES Branch DAILY HUMULIN Yes [id number] ADMINISTER Univers 70/30 U-100 8-03 70 UNITS ity of INSULIN 100 00:00: UNDER THE [place] unit/mL 00 SKIN EVERY Medica l (70-30) MORNING Branch suspension THEN ADMINISTER 60 UNITS UNDER THE SKIN EVERY EVENING GABAPENTIN Yes [id number] TAKE 1 [facility] 600 mg 8 TABLET BY ity of tablet 00:00: MOUTH [place] 00 THREE Medical TIMES Branch DAILY HUMULIN Yes [id number] ADMINISTER Univers 70/30 U-100 8-03 70 UNITS ity of INSULIN 100 00:00: UNDER THE [place] unit/mL 00 SKIN EVERY Medica l (70-30) MORNING Branch suspension THEN ADMINISTER 60 UNITS UNDER THE SKIN EVERY EVENING HUMULIN Yes [id number] ADMINISTER Univers 70/30 U-100 8-03 70 UNITS ity of INSULIN 100 00:00: UNDER THE [place] unit/mL 00 SKIN EVERY Medica l (70-30) MORNING Branch suspension THEN ADMINISTER 60 UNITS UNDER THE SKIN EVERY EVENING HUMULIN Yes [id number] ADMINISTER Univers 70/30 U-100 8-03 70 UNITS ity of INSULIN 100 00:00: UNDER [place] unit/mL 00 SKIN EVERY Medica l (70-30) MORNING Branch suspension THEN ADMINISTER 60 UNITS UNDER THE SKIN EVERY EVENING HUMULIN Yes [id number] ADMINISTER Univers 70/30 U-100 8-03 70 UNITS ity of INSULIN 100 00:00: UNDER THE [place] unit/mL 00 SKIN EVERY Medica l (70-30) MORNING Branch suspension THEN ADMINISTER 60 UNITS UNDER THE SKIN EVERY EVENING HUMULIN Yes [id number] ADMINISTER Univers 70/30 U-100 8-03 70 UNITS ity of INSULIN 100 00:00: UNDER THE [place] unit/mL 00 SKIN EVERY Medica l (70-30) MORNING Branch suspension THEN ADMINISTER 60 UNITS UNDER THE SKIN EVERY EVENING HUMULIN Yes [id number] ADMINISTER Univers 70/30 U-100 8-03 70 UNITS ity of INSULIN 100 00:00: UNDER THE [place] unit/mL 00 SKIN EVERY Medica l (70-30) MORNING Branch suspension THEN ADMINISTER 60 UNITS UNDER THE SKIN EVERY EVENING HUMULIN Yes [id number] ADMINISTER Univers 70/30 U-100 8-03 70 UNITS ity of INSULIN 100 00:00: UNDER THE [place] unit/mL 00 SKIN EVERY Medica l (70-30) MORNING Branch suspension THEN ADMINISTER 60 UNITS UNDER THE SKIN EVERY EVENING HUMULIN Yes [id number] ADMINISTER Univers 70/30 U-100 8-03 70 UNITS ity of INSULIN 100 00:00: UNDER THE [place] unit/mL 00 SKIN EVERY Medica l (70-30) MORNING Branch suspension THEN ADMINISTER 60 UNITS UNDER THE SKIN EVERY EVENING HUMULIN Yes [id number] ADMINISTER Univers 70/30 U-100 8-03 70 UNITS ity of INSULIN 100 00:00: UNDER THE [place] unit/mL 00 SKIN EVERY Medica l (70-30) MORNING Branch suspension THEN ADMINISTER 60 UNITS UNDER THE SKIN EVERY EVENING HUMULIN Yes [id number] ADMINISTER Univers 70/30 U-100 8-03 70 UNITS ity of INSULIN 100 00:00: UNDER THE [place] unit/mL 00 SKIN EVERY Medica l (70-30) MORNING Branch suspension THEN ADMINISTER 60 UNITS UNDER THE SKIN EVERY EVENING HUMULIN Yes [id number] ADMINISTER Univers 70/30 U-100 8-03 70 UNITS ity of INSULIN 100 00:00: UNDER THE [place] unit/mL 00 SKIN EVERY Medica l (70-30) MORNING Branch suspension THEN ADMINISTER 60 UNITS UNDER THE SKIN EVERY EVENING HUMULIN Yes [id number] ADMINISTER Univers 70/30 U-100 8-03 70 UNITS ity of INSULIN 100 00:00: UNDER THE [place] unit/mL 00 SKIN EVERY Medica l (70-30) MORNING Branch suspension THEN ADMINISTER 60 UNITS UNDER THE SKIN EVERY EVENING HUMULIN Yes [id number] ADMINISTER [facility] 70/30 U-100 8-03 70 UNITS ity of INSULIN 100 00:00: UNDER THE [place] unit/mL 00 SKIN EVERY Medica l (70-30) MORNING Branch suspension THEN ADMINISTER 60 UNITS UNDER THE SKIN EVERY EVENING HUMULIN Yes [id number] ADMINISTER Univers 70/30 U-100 8-03 70 UNITS ity of INSULIN 100 00:00: UNDER THE [place] unit/mL 00 SKIN EVERY Medica l (70-30) MORNING Branch suspension THEN ADMINISTER 60 UNITS UNDER THE SKIN EVERY EVENING HUMULIN Yes [id number] ADMINISTER Univers 70/30 U-100 8-03 70 UNITS ity of INSULIN 100 00:00: UNDER THE [place] unit/mL 00 SKIN EVERY Medica l (70-30) MORNING Branch suspension THEN ADMINISTER 60 UNITS UNDER THE SKIN EVERY EVENING HUMULIN Yes [id number] ADMINISTER Univers 70/30 U-100 8-03 70 UNITS ity of INSULIN 100 00:00: UNDER THE [place] unit/mL 00 SKIN EVERY Medica l (70-30) MORNING Branch suspension THEN ADMINISTER 60 UNITS UNDER THE SKIN EVERY EVENING HUMULIN Yes [id number] ADMINISTER [facility] 70/30 U-100 8-03 70 UNITS ity of INSULIN 100 00:00: UNDER THE [place] unit/mL 00 SKIN EVERY Medica l (70-30) MORNING Branch suspension THEN ADMINISTER 60 UNITS UNDER THE SKIN EVERY EVENING HUMULIN Yes [id number] ADMINISTER [facility] 70/30 U-100 8-03 70 UNITS ity of INSULIN 100 00:00: UNDER THE [place] unit/mL 00 SKIN EVERY Medica l (70-30) MORNING Branch suspension THEN ADMINISTER 60 UNITS UNDER THE SKIN EVERY EVENING HUMULIN Yes [id number] ADMINISTER [facility] 70/30 U-100 8- 70 UNITS ity of INSULIN 100 00:00: UNDER THE [place] unit/mL 00 SKIN EVERY Medica l (70-30) MORNING Branch suspension THEN ADMINISTER 60 UNITS UNDER THE SKIN EVERY EVENING HUMULIN Yes [id number] ADMINISTER [facility] 70/30 U-100 8-03 70 UNITS ity of INSULIN 100 00:00: UNDER THE [place] unit/mL 00 SKIN EVERY Medica l (70-30) MORNING Branch suspension THEN ADMINISTER 60 UNITS UNDER THE SKIN EVERY EVENING HUMULIN Yes [id number] ADMINISTER [facility] 70/30 U-100 8-03 70 UNITS ity of INSULIN 100 00:00: UNDER THE [place] unit/mL 00 SKIN EVERY Medica l (70-30) MORNING Branch suspension THEN ADMINISTER 60 UNITS UNDER THE SKIN EVERY EVENING HUMULIN Yes [id number] ADMINISTER [facility] 70/30 U-100 8-03 70 UNITS ity of INSULIN 100 00:00: [place] THE [place] unit/mL 00 SKIN EVERY Medica l (70-30) MORNING Branch suspension THEN ADMINISTER 60 UNITS UNDER THE SKIN EVERY EVENING HUMULIN Yes [id number] ADMINISTER [facility] 70/30 U-100 8-03 70 UNITS ity of INSULIN 100 00:00: [place] THE [place] unit/mL 00 SKIN EVERY Medica l (70-30) MORNING Branch suspension THEN ADMINISTER 60 UNITS UNDER THE SKIN EVERY EVENING HUMULIN Yes [id number] ADMINISTER [facility] 70/30 U-100 8 70 UNITS ity of INSULIN 100 00:00: [place] THE [place] unit/mL 00 SKIN EVERY Medica l (70-30) MORNING Branch suspension THEN ADMINISTER 60 UNITS UNDER THE SKIN EVERY EVENING HUMULIN Yes [id number] ADMINISTER [facility] 70/30 U-100 8- 70 UNITS ity of INSULIN 100 00:00: [place] THE [place] unit/mL 00 SKIN EVERY Medica l (70-30) MORNING Branch suspension THEN ADMINISTER 60 UNITS UNDER THE SKIN EVERY EVENING HUMULIN Yes [id number] ADMINISTER [facility] 70/30 U-100 06-03 70 UNITS ity of INSULIN 100 00:00: [place] THE [place] unit/mL 00 SKIN EVERY Medica l (70-30) MORNING Branch suspension THEN ADMINISTER 60 UNITS UNDER THE SKIN EVERY EVENING HUMULIN Yes [id number] ADMINISTER [facility] 70/30 U-100 06-03 70 UNITS ity of INSULIN 100 00:00: [place] THE [place] unit/mL 00 SKIN EVERY Medica l (70-30) MORNING Branch suspension THEN ADMINISTER 60 UNITS UNDER THE SKIN EVERY EVENING HUMULIN Yes [id number] ADMINISTER [facility] 70/30 U-100 06-03 70 UNITS ity of INSULIN 100 00:00: [place] THE [place] unit/mL 00 SKIN EVERY Medica l (70-30) MORNING Branch suspension THEN ADMINISTER 60 UNITS UNDER THE SKIN EVERY EVENING HUMULIN Yes [id number] ADMINISTER [facility] 70/30 U-100 06-03 70 UNITS [...] gabapentin Yes TAKE 1 [facility] (NEURONTIN) 8-03 TABLET BY [facility] 600 MG 00:00: MOUTH of tablet 00 THREE Medicin TIMES e DAILY GABAPENTIN 2021- No [id number] TAKE 1 [facility] 600 mg 8-03 08-31 TABLET BY ity of tablet 00:00: 00:00 MOUTH [place] 00 :00 THREE Medical TIMES Branch DAILY HYDROCHLORO 2022-0 Yes [id number] 12.5mg TAKE 1 [facility] THIAZIDE 7-18 CAPSULE BY ity o f 12.5 mg 00:00: MOUTH [place] capsule 00 DAILY Medical Branch HYDROCHLORO 2022-0 Yes [id number] 12.5mg TAKE 1 [facility] THIAZIDE 7-18 CAPSULE BY ity o f 12.5 mg 00:00: MOUTH [place] capsule 00 DAILY Medical Branch HYDROCHLORO 2022-0 Yes [id number] 12.5mg TAKE 1 [facility] THIAZIDE 7-18 CAPSULE BY ity o f 12.5 mg 00:00: MOUTH [place] capsule 00 DAILY Medical Branch HYDROCHLORO 2022-0 Yes [id number] 12.5mg TAKE 1 [facility] THIAZIDE 7-18 CAPSULE BY ity o f 12.5 mg 00:00: MOUTH [place] capsule 00 DAILY Medical Branch HYDROCHLORO 2022-0 Yes [id number] 12.5mg TAKE 1 [facility] THIAZIDE 7-18 CAPSULE BY ity o f 12.5 mg 00:00: MOUTH [place] capsule 00 DAILY Medical Branch HYDROCHLORO 2022-0 Yes [id number] 12.5mg TAKE 1 [facility] THIAZIDE 7-18 CAPSULE BY ity o f 12.5 mg 00:00: MOUTH [place] capsule 00 DAILY Medical Branch HYDROCHLORO 2022-0 Yes [id number] 12.5mg TAKE 1 [facility] THIAZIDE 7-18 CAPSULE BY ity o f 12.5 mg 00:00: MOUTH [place] capsule 00 DAILY Medical Branch HYDROCHLORO 2022-0 Yes [id number] 12.5mg TAKE 1 [facility] THIAZIDE 7-18 CAPSULE BY ity o f 12.5 mg 00:00: MOUTH [place] capsule 00 DAILY Medical Branch HYDROCHLORO 2022-0 Yes [id number] 12.5mg TAKE 1 [facility] THIAZIDE 7-18 CAPSULE BY ity o f 12.5 mg 00:00: MOUTH [place] capsule 00 DAILY Medical Branch HYDROCHLORO 2022-0 Yes [id number] 12.5mg TAKE 1 [facility] THIAZIDE 7-18 CAPSULE BY ity o f 12.5 mg 00:00: MOUTH [place] capsule 00 DAILY Medical Branch HYDROCHLORO 2022-0 Yes [id number] 12.5mg TAKE 1 [facility] THIAZIDE 7-18 CAPSULE BY ity o f 12.5 mg 00:00: MOUTH [place] capsule 00 DAILY Medical Branch HYDROCHLORO 2022-0 Yes [id number] 12.5mg TAKE 1 [facility] THIAZIDE 7-18 CAPSULE BY ity o f 12.5 mg 00:00: MOUTH [place] capsule 00 DAILY Medical Branch HYDROCHLORO 2022-0 Yes [id number] 12.5mg TAKE 1 [facility] THIAZIDE 7-18 CAPSULE BY ity o f 12.5 mg 00:00: MOUTH [place] capsule 00 DAILY Medical Branch HYDROCHLORO 2022-0 Yes [id number] 12.5mg TAKE 1 [facility] THIAZIDE 7-18 CAPSULE BY ity o f 12.5 mg 00:00: MOUTH [place] capsule 00 DAILY Medical Branch HYDROCHLORO 2022-0 Yes [id number] 12.5mg TAKE 1 [facility] THIAZIDE 7-18 CAPSULE BY ity o f 12.5 mg 00:00: MOUTH [place] capsule 00 DAILY Medical Branch HYDROCHLORO 2022-0 Yes [id number] 12.5mg TAKE 1 [facility] THIAZIDE 7-18 CAPSULE BY ity o f 12.5 mg 00:00: MOUTH [place] capsule 00 DAILY Medical Branch HYDROCHLORO 2022-0 Yes [id number] 12.5mg TAKE 1 [facility] THIAZIDE 7-18 CAPSULE BY ity o f 12.5 mg 00:00: MOUTH [place] capsule 00 DAILY Medical Branch HYDROCHLORO 2022-0 Yes [id number] 12.5mg TAKE 1 [facility] THIAZIDE 7-18 CAPSULE BY ity o f 12.5 mg 00:00: MOUTH [place] capsule 00 DAILY Medical Branch HYDROCHLORO 2022-0 Yes [id number] 12.5mg TAKE 1 [facility] THIAZIDE 7-18 CAPSULE BY ity o f 12.5 mg 00:00: MOUTH [place] capsule 00 DAILY Medical Branch HYDROCHLORO 2022-0 Yes [id number] 12.5mg TAKE 1 [facility] THIAZIDE 7-18 CAPSULE BY ity o f 12.5 mg 00:00: MOUTH [place] capsule 00 DAILY Medical Branch HYDROCHLORO 2022-0 Yes [id number] 12.5mg TAKE 1 [facility] THIAZIDE 7-18 CAPSULE BY ity o f 12.5 mg 00:00: MOUTH [place] capsule 00 DAILY Medical Branch HYDROCHLORO 2022-0 Yes [id number] 12.5mg TAKE 1 [facility] THIAZIDE 7-18 CAPSULE BY ity o f 12.5 mg 00:00: MOUTH [place] capsule 00 DAILY Medical Branch HYDROCHLORO 2022-0 Yes [id number] 12.5mg TAKE 1 [facility] THIAZIDE 7-18 CAPSULE BY ity o f 12.5 mg 00:00: MOUTH [place] capsule 00 DAILY Medical Branch HYDROCHLORO 2022-0 Yes [id number] 12.5mg TAKE 1 [facility] THIAZIDE 7-18 CAPSULE BY ity o f 12.5 mg 00:00: MOUTH [place] capsule 00 DAILY Medical Branch HYDROCHLORO 2022-0 Yes [id number] 12.5mg TAKE 1 [facility] THIAZIDE 7-18 CAPSULE BY ity o f 12.5 mg 00:00: MOUTH [place] capsule 00 DAILY Medical Branch HYDROCHLORO 2022-0 Yes [id number] 12.5mg TAKE 1 [facility] THIAZIDE 7-18 CAPSULE BY ity o f 12.5 mg 00:00: MOUTH [place] capsule 00 DAILY Medical Branch HYDROCHLORO 2022-0 Yes [id number] 12.5mg TAKE 1 [facility] THIAZIDE 7-18 CAPSULE BY ity o f 12.5 mg 00:00: MOUTH [place] capsule 00 DAILY Medical Branch HYDROCHLORO 2022-0 Yes [id number] 12.5mg TAKE 1 [facility] THIAZIDE 7-18 CAPSULE BY ity o f 12.5 mg 00:00: MOUTH [place] capsule 00 DAILY Medical Branch HYDROCHLORO 2022-0 Yes [id number] 12.5mg TAKE 1 [facility] THIAZIDE 7-18 CAPSULE BY ity o f 12.5 mg 00:00: MOUTH [place] capsule 00 DAILY Medical Branch HYDROCHLORO 2022-0 Yes [id number] 12.5mg TAKE 1 [facility] THIAZIDE 7-18 CAPSULE BY ity o f 12.5 mg 00:00: MOUTH [place] capsule 00 DAILY Medical Branch HYDROCHLORO 2022-0 Yes [id number] 12.5mg TAKE 1 [facility] THIAZIDE 7-18 CAPSULE BY ity o f 12.5 mg 00:00: MOUTH [place] capsule 00 DAILY Medical Branch HYDROCHLORO 2022-0 Yes [id number] 12.5mg TAKE 1 [facility] THIAZIDE 7-18 CAPSULE BY ity o f 12.5 mg 00:00: MOUTH [place] capsule 00 DAILY Medical Branch HYDROCHLORO 2022-0 Yes [id number] 12.5mg TAKE 1 [facility] THIAZIDE 7-18 CAPSULE BY ity o f 12.5 mg 00:00: MOUTH [place] capsule 00 DAILY Medical Branch HYDROCHLORO 2022-0 Yes [id number] 12.5mg TAKE 1 [facility] THIAZIDE 7-18 CAPSULE BY ity o f 12.5 mg 00:00: MOUTH [place] capsule 00 DAILY Medical Branch HYDROCHLORO 2022-0 Yes [id number] 12.5mg TAKE 1 [facility] THIAZIDE 7-18 CAPSULE BY ity o f 12.5 mg 00:00: MOUTH [place] capsule 00 DAILY Medical Branch dicyclomine Yes TAKE 1 [facility] (BENTYL) [...] 00 EVERY 8 Medicin HOURS e HYDROcodone Yes [id number] 1{tbl} Take 1 Un [...] for Pain. Indication s: chronic pain colchicine Yes .6mg Take 0.6 [place] [facility] 0.6 MG 7-11 mg by [facility] tablet 00:00: mouth of 00 daily. Medicin e colchicine 0 Yes .6mg Take 0.6 [place] [facility] 0.6 MG 7-11 mg by [facility] tablet 00:00: mouth of 00 daily. Medicin e HYDROcodone 2021- No [id number] 1{tbl} Take 1 [facility] -acetaminop 7-11 08-08 tablet by it y of hen 7.5-325 00:00: 00:[place] per 00 :00 every 6 Medical tablet (six) Branch hours as needed for Pain. Indication s: chronic pain ondansetron Yes DISSOLVE 1 [facility] (ZOFRAN-ODT 7-06 TABLET ON Col lege ) 4 mg 00:00: THE TONGUE of disintegrat 00 EVERY 12 Medi patsy ing tablet HOURS e NEEDED pantoprazol Yes 40mg Take 40 mg [facility] e 7-06 by mouth [facility] (PROTONIX) 00:00: daily. of 40 MG 00 Medicin tablet e ondansetron Yes DISSOLVE 1 [facility] (ZOFRAN-ODT 7-06 TABLET ON Col lege ) 4 mg 00:00: THE TONGUE of disintegrat 00 EVERY 12 Medi patsy ing tablet HOURS e NEEDED pantoprazol 0 Yes 40mg Take 40 mg [facility] 7-06 by mouth [facility] (PROTONIX) 00:00: daily. of 40 MG 00 Medicin tablet e ondansetron Yes DISSOLVE 1 [facility] (ZOFRAN-ODT 7-06 TABLET ON Col lege ) 4 mg 00:00: THE TONGUE of disintegrat 00 EVERY 12 Medi patsy ing tablet HOURS e NEEDED ofloxacin Yes [facility] (OCUFLOX) 6-22 College 0.3 % 00:00: of Solution 00 Medicin e ofloxacin 0 Yes [facility] (OCUFLOX) 6-22 College 0.3 % 00:00: of Solution 00 Medicin e zolpidem Yes TAKE 1 [facility] (AMBIEN) 10 6-20 TABLET BY Col lege MG tablet 00:00: MOUTH AT of 00 BEDTIME Medicin NEEDED FOR e INSOMNIA zolpidem Yes TAKE 1 [facility] (AMBIEN) 10 6-20 TABLET BY Col [facility] MG tablet 00:00: MOUTH AT of 00 BEDTIME Medicin NEEDED FOR e INSOMNIA zolpidem 0 Yes TAKE 1 [facility] (AMBIEN) 10 6-20 TABLET BY Col [facility]ge MG tablet 00:00: MOUTH AT of 00 BEDTIME Medicin NEEDED FOR e INSOMNIA HYDROcodone 2021-0 Yes [id number] 1{tbl} Take 1 [...] for Pain. Indication s: chronic pain metoprolol 2021-0 Yes 100mg Take 1 [facility] ers tartrate 6-09 tablet by ity of 100 mg 00:00: mouth 2 [place] tablet 00 (two) Medical times Branch daily. metoprolol 2-0 Yes 100mg Take 1 [facility] ers tartrate [...] 00 (two) Medical times Branch daily. metoprolol 2-0 2022- No 100mg Take 1 [facility] vers tartrate 04-09 08- tablet by ity o f 100 mg 00:00: 00:00 mouth 2 [place] tablet 00 :00 (two) Medical times Branch daily. GABAPENTIN 2022-0 Yes [id number] TAKE 1 [facility] 600 mg 5-31 TABLET BY ity of tablet 00:00: MOUTH [place] 00 THREE Medical TIMES Branch DAILY GABAPENTIN 2022-0 Yes [id number] TAKE 1 [facility] 600 mg 5-31 TABLET BY ity of tablet 00:00: MOUTH [place] 00 THREE Medical TIMES Branch DAILY GABAPENTIN 2022-0 Yes [id number] TAKE 1 [facility] 600 mg 5-31 TABLET BY ity of tablet 00:00: MOUTH [place] 00 THREE Medical TIMES Branch DAILY GABAPENTIN 2022-0 Yes [id number] TAKE 1 [facility] 600 mg 5-31 TABLET BY ity of tablet 00:00: MOUTH [place] 00 THREE Medical TIMES Branch DAILY GABAPENTIN 2022-0 Yes [id number] TAKE 1 [facility] 600 mg 5-31 TABLET BY ity of tablet 00:00: MOUTH [place] 00 THREE Medical TIMES Branch DAILY GABAPENTIN 2022-0 2022- No [id number] TAKE 1 [facility] 600 mg 5-31 08-03 TABLET BY ity of tablet 00:00: 00:00 MOUTH [place] 00 :00 THREE Medical TIMES Branch DAILY Insulin 2022-0 Yes [id number] Use as [facility] vers Syringe-Nee 5-18 directed ity of dle U-100 1 00:00: [place] mL 31 x 00 Medical 3/8" Syrg Branch Insulin 2022-0 Yes [id number] Use as Uni vers Syringe-Nee 5-18 directed ity of dle U-100 1 00:00: [place] mL 31 x 00 Medical 3/8" Syrg Branch Insulin 2022-0 Yes [id number] Use as Uni vers Syringe-Nee 5-18 directed ity of dle U-100 1 00:00: [place] mL 31 x 00 Medical 3/8" Syrg Branch Insulin 2022-0 Yes [id number] Use as Uni vers Syringe-Nee 5-18 directed ity of dle U-100 1 00:00: [place] mL 31 x 00 Medical 3/8" Syrg Branch Insulin 2022-0 Yes [id number] Use as Uni vers Syringe-Nee 5-18 directed ity of dle U-100 1 00:00: [place] mL 31 x 00 Medical 3/8" Syrg Branch Insulin 2022-0 Yes [id number] Use as Uni vers Syringe-Nee 5-18 directed ity of dle U-100 1 00:00: [place] mL 31 x 00 Medical 3/8" Syrg Branch Insulin 2022-0 Yes [id number] Use as Uni vers Syringe-Nee 5-18 directed ity of dle U-100 1 00:00: [place] mL 31 x 00 Medical 3/8" Syrg Branch Insulin 2022-0 Yes [id number] Use as Uni vers Syringe-Nee 5-18 directed ity of dle U-100 1 00:00: [place] mL 31 x 00 Medical 3/8" Syrg Branch Insulin 2022-0 Yes [id number] Use as Uni vers Syringe-Nee 5-18 directed ity of dle U-100 1 00:00: [place] mL 31 x 00 Medical 3/8" Syrg Branch Insulin 2022-0 Yes [id number] Use as Uni vers Syringe-Nee 5-18 directed ity of dle U-100 1 00:00: [place] mL 31 x 00 Medical 3/8" Syrg Branch Insulin 2022-0 Yes [id number] Use as Uni vers Syringe-Nee 5-18 directed ity of dle U-100 1 00:00: [place] mL 31 x 00 Medical 3/8" Syrg Branch Insulin 2022-0 Yes [id number] Use as Uni vers Syringe-Nee 5-18 directed ity of dle U-100 1 00:00: [place] mL 31 x 00 Medical 3/8" Syrg Branch Insulin 2022-0 Yes [id number] Use as Uni vers Syringe-Nee 5-18 directed ity of dle U-100 1 00:00: [place] mL 31 x 00 Medical 3/8" Syrg Branch Insulin 2022-0 Yes [id number] Use as Uni vers Syringe-Nee 5-18 directed ity of dle U-100 1 00:00: [place] mL 31 x 00 Medical 3/8" Syrg Branch Insulin 2022-0 Yes [id number] Use as Uni vers Syringe-Nee 5-18 directed ity of dle U-100 1 00:00: [place] mL 31 x 00 Medical 3/8" Syrg Branch Insulin 2022-0 Yes [id number] Use as Uni vers Syringe-Nee 5-18 directed ity of dle U-100 1 00:00: [place] mL 31 x 00 Medical 3/8" Syrg Branch Insulin 2022-0 Yes [id number] Use as [facility] vers Syringe-Nee 5-18 directed ity of dle U-100 1 00:00: [place] mL 31 x 00 Medical 3/8" Syrg Branch Insulin 2022-0 Yes [id number] Use as [facility] vers Syringe-Nee 5-18 directed ity of dle U-100 1 00:00: [place] mL 31 x 00 Medical 3/8" Syrg Branch Insulin 2022-0 Yes [id number] Use as Uni vers Syringe-Nee 5-18 directed ity of dle U-100 1 00:00: [place] mL 31 x 00 Medical 3/8" Syrg Branch Insulin 2022-0 Yes [id number] Use as [facility] vers Syringe-Nee 5-18 directed ity of dle U-100 1 00:00: [place] mL 31 x 00 Medical 3/8" Syrg Branch Insulin 2022-0 Yes [id number] Use as [facility] vers Syringe-Nee 5-18 directed ity of dle U-100 1 00:00: [place] mL 31 x 00 Medical 3/8" Syrg Branch Insulin 2022-0 Yes [id number] Use as [facility] vers Syringe-Nee 5-18 directed ity of dle U-100 1 00:00: [place] mL 31 x 00 Medical 3/8" Syrg Branch Insulin 2022-0 Yes [id number] Use as [facility] vers Syringe-Nee 5-18 directed ity of dle U-100 1 00:00: [place] mL 31 x 00 Medical 3/8" Syrg Branch Insulin 2022-0 Yes [id number] Use as [facility] vers Syringe-Nee 5-18 directed ity of dle U-100 1 00:00: [place] mL 31 x 00 Medical 3/8" Syrg Branch Insulin 2022-0 Yes [id number] Use as [facility] vers Syringe-Nee 5-18 directed ity of dle U-100 1 00:00: [place] mL 31 x 00 Medical 3/8" Syrg Branch Insulin 2022-0 Yes [id number] Use as [facility] vers Syringe-Nee 5-18 directed ity of dle U-100 1 00:00: [place] mL 31 x 00 Medical 3/8" Syrg Branch Insulin 2022-0 Yes [id number] Use as Uni vers Syringe-Nee 5-18 directed ity of dle U-100 1 00:00: [place] mL 31 x 00 Medical 3/8" Syrg Branch Insulin 2022-0 Yes [id number] Use as [facility] vers Syringe-Nee 5-18 directed ity of dle U-100 1 00:00: [place] mL 31 x 00 Medical 3/8" Syrg Branch Insulin 2022-0 Yes [id number] Use as [facility] vers Syringe-Nee 5-18 directed ity of dle U-100 1 00:00: [place] mL 31 x 00 Medical 3/8" Syrg Branch Insulin 2022-0 Yes [id number] Use as [facility] vers Syringe-Nee 5-18 directed ity of dle U-100 1 00:00: [place] mL 31 x 00 Medical 3/8" Syrg Branch Insulin 2022-0 Yes [id number] Use as [facility] vers Syringe-Nee 5-18 directed ity of dle U-100 1 00:00: [place] mL 31 x 00 Medical 3/8" Syrg Branch Insulin 2022-0 Yes [id number] Use as [facility] vers Syringe-Nee 5-18 directed ity of dle U-100 1 00:00: [place] mL 31 x 00 Medical 3/8" Syrg Branch Insulin 2022-0 Yes [id number] Use as [facility] vers Syringe-Nee 5-18 directed ity of dle U-100 1 00:00: [place] mL 31 x 00 Medical 3/8" Syrg Branch Insulin 2022-0 Yes [id number] Use as [facility] vers Syringe-Nee 5-18 directed ity of dle U-100 1 00:00: [place] mL 31 x 00 Medical 3/8" Syrg Branch Insulin 2022-0 Yes [id number] Use as [facility] vers Syringe-Nee 5-18 directed ity of dle U-100 1 00:00: [place] mL 31 x 00 Medical 3/8" Syrg Branch Insulin 2022-0 Yes [id number] Use as [facility] vers Syringe-Nee 5-18 directed ity of dle U-100 1 00:00: [place] mL 31 x 00 Medical 3/8" Syrg Branch Insulin 2022-0 Yes [id number] Use as [facility] vers Syringe-Nee 5-18 directed ity of dle U-100 1 00:00: [place] mL 31 x 00 Medical 3/8" Syrg Branch Insulin 2022-0 Yes [id number] Use as [facility] vers Syringe-Nee 5-18 directed ity of dle U-100 1 00:00: [place] mL 31 x 00 Medical 3/8" Syrg Branch Insulin 2022-0 Yes [id number] Use as [facility] vers Syringe-Nee 5-18 directed ity of dle U-100 1 00:00: [place] mL 31 x 00 Medical 3/8" Syrg Branch METFORMIN 2022-0 Yes [id number] TAKE 1 [facility] 1,000 mg 5-16 TABLET BY ity of tablet 00:00: MOUTH [place] 00 TWICE Medical DAILY WITH Branch MEALS HYDRALAZINE 2-0 Yes [id number] TAKE 1 [facility] 100 mg 5-16 TABLET BY ity of tablet 00:00: MOUTH [place] 00 THREE Medical TIMES Branch DAILY METFORMIN 2022-0 Yes [id number] TAKE 1 [facility] 1,000 mg 5-16 TABLET BY ity of tablet 00:00: MOUTH [place] 00 TWICE Medical DAILY WITH Branch MEALS HYDRALAZINE 2-0 Yes [id number] TAKE 1 [facility] 100 mg 5-16 TABLET BY ity of tablet 00:00: MOUTH [place] 00 THREE Medical TIMES Branch DAILY METFORMIN 2022-0 Yes [id number] TAKE 1 [facility] 1,000 mg 5-16 TABLET BY ity of tablet 00:00: MOUTH [place] 00 TWICE Medical DAILY WITH Branch MEALS HYDRALAZINE 2-0 Yes [id number] TAKE 1 [facility] 100 mg 5-16 TABLET BY ity of tablet 00:00: MOUTH [place] 00 THREE Medical TIMES Branch DAILY METFORMIN 2022-0 Yes [id number] TAKE 1 [facility] 1,000 mg 5-16 TABLET BY ity of tablet 00:00: MOUTH [place] 00 TWICE Medical DAILY WITH Branch MEALS HYDRALAZINE 2-0 Yes [id number] TAKE 1 [facility] 100 mg 5-16 TABLET BY ity of tablet 00:00: MOUTH [place] 00 THREE Medical TIMES Branch DAILY METFORMIN 2022-0 Yes [id number] TAKE 1 [facility] 1,000 mg 5-16 TABLET BY ity of tablet 00:00: MOUTH TWICE Medical DAILY WITH Branch MEALS HYDRALAZINE 2-0 Yes [id number] TAKE 1 [facility] 100 mg 5-16 TABLET BY ity of tablet 00:00: MOUTH THREE Medical TIMES Branch DAILY METFORMIN 2-0 Yes [id number] TAKE 1 [facility] 1,000 mg 5-16 TABLET BY ity of tablet 00:00: MOUTH TWICE Medical DAILY WITH Branch MEALS HYDRALAZINE 2-0 Yes [id number] TAKE 1 [facility] 100 mg 5-16 TABLET BY ity of tablet 00:00: MOUTH THREE Medical TIMES Branch DAILY METFORMIN 2-0 Yes [id number] TAKE 1 [facility] 1,000 mg 5-16 TABLET BY ity of tablet 00:00: TWICE Medical DAILY WITH Branch MEALS HYDRALAZINE 2021-0 Yes [id number] TAKE 1 [facility] 100 mg 5-16 TABLET BY ity of tablet 00:00: THREE Medical TIMES Branch DAILY METFORMIN 2-0 Yes [id number] TAKE 1 [facility] 1,000 mg 5-16 TABLET BY ity of tablet 00:00: MOUTH TWICE Medical DAILY WITH Branch MEALS HYDRALAZINE 2-0 Yes [id number] TAKE 1 [facility] 100 mg 5-16 TABLET BY ity of tablet 00:00: MOUTH THREE Medical TIMES Branch DAILY METFORMIN 2-0 Yes [id number] TAKE 1 [facility] 1,000 mg 5-16 TABLET BY ity of tablet 00:00: TWICE Medical DAILY WITH Branch MEALS HYDRALAZINE 2-0 Yes [id number] TAKE 1 [facility] 100 mg 5-16 TABLET BY ity of tablet 00:00: MOUTH THREE Medical TIMES Branch DAILY METFORMIN 2022-0 Yes [id number] TAKE 1 [facility] 1,000 mg 5-16 TABLET BY ity of tablet 00:00: MOUTH TWICE Medical DAILY WITH Branch MEALS HYDRALAZINE 2-0 Yes [id number] TAKE 1 [facility] 100 mg 5-16 TABLET BY ity of tablet 00:00: MOUTH THREE Medical TIMES Branch DAILY METFORMIN 2022-0 Yes [id number] TAKE 1 [facility] 1,000 mg 5-16 TABLET BY ity of tablet 00:00: MOUTH TWICE Medical DAILY WITH Branch MEALS HYDRALAZINE 2-0 Yes [id number] TAKE 1 [facility] 100 mg 5-16 TABLET BY ity of tablet 00:00: MOUTH 00 THREE Medical TIMES Branch DAILY METFORMIN 2022-0 Yes [id number] TAKE 1 [facility] 1,000 mg 5-16 TABLET BY ity of tablet 00:00: MOUTH 00 TWICE Medical DAILY WITH Branch MEALS METFORMIN 2022-0 Yes [id number] TAKE 1 [facility] 1,000 mg 5-16 TABLET BY ity of tablet 00:00: MOUTH 00 TWICE Medical DAILY WITH Branch MEALS METFORMIN 2022-0 Yes [id number] TAKE 1 [facility] 1,000 mg 5-16 TABLET BY ity of tablet 00:00: MOUTH 00 TWICE Medical DAILY WITH Branch MEALS METFORMIN 2022-0 Yes [id number] TAKE 1 [facility] 1,000 mg 5-16 TABLET BY ity of tablet 00:00: MOUTH 00 TWICE Medical DAILY WITH Branch MEALS METFORMIN 2022-0 Yes [id number] TAKE 1 [facility] 1,000 mg 5-16 TABLET BY ity of tablet 00:00: MOUTH 00 TWICE Medical DAILY WITH Branch MEALS METFORMIN 2022-0 Yes [id number] TAKE 1 [facility] 1,000 mg 5-16 TABLET BY ity of tablet 00:00: MOUTH 00 TWICE Medical DAILY WITH Branch MEALS METFORMIN 2022-0 Yes [id number] TAKE 1 [facility] 1,000 mg 5-16 TABLET BY ity of tablet 00:00: MOUTH 00 TWICE Medical DAILY WITH Branch MEALS METFORMIN 2022-0 Yes [id number] TAKE 1 [facility] 1,000 mg 5-16 TABLET BY ity of tablet 00:00: MOUTH 00 TWICE Medical DAILY WITH Branch MEALS METFORMIN 2022-0 Yes [id number] TAKE 1 [facility] 1,000 mg 5-16 TABLET BY ity of tablet 00:00: MOUTH 00 TWICE Medical DAILY WITH Branch MEALS METFORMIN 2022-0 Yes [id number] TAKE 1 [facility] 1,000 mg 5-16 TABLET BY ity of tablet 00:00: MOUTH 00 TWICE Medical DAILY WITH Branch MEALS METFORMIN 2022-0 Yes [id number] TAKE 1 [facility] 1,000 mg 5-16 TABLET BY ity of tablet 00:00: MOUTH 00 TWICE Medical DAILY WITH Branch MEALS METFORMIN 2022-0 Yes [id number] TAKE 1 [facility] 1,000 mg 5-16 TABLET BY ity of tablet 00:00: MOUTH 00 TWICE Medical DAILY WITH Branch MEALS METFORMIN 2022-0 Yes [id number] TAKE 1 [facility] 1,000 mg 5-16 TABLET BY ity of tablet 00:00: MOUTH 00 TWICE Medical DAILY WITH Branch MEALS METFORMIN 2022-0 Yes [id number] TAKE 1 [facility] 1,000 mg 5-16 TABLET BY ity of tablet 00:00: MOUTH 00 TWICE Medical DAILY WITH Branch MEALS METFORMIN 2022-0 Yes [id number] TAKE 1 [facility] 1,000 mg 5-16 TABLET BY ity of tablet 00:00: MOUTH 00 TWICE Medical DAILY WITH Branch MEALS METFORMIN 2022-0 Yes [id number] TAKE 1 [facility] 1,000 mg 5-16 TABLET BY ity of tablet 00:00: MOUTH 00 TWICE Medical DAILY WITH Branch MEALS METFORMIN 2022-0 Yes [id number] TAKE 1 [facility] 1,000 mg 5-16 TABLET BY ity of tablet 00:00: MOUTH 00 TWICE Medical DAILY WITH Branch MEALS METFORMIN 2022-0 Yes [id number] TAKE 1 [facility] 1,000 mg 5-16 TABLET BY ity of tablet 00:00: MOUTH 00 TWICE Medical DAILY WITH Branch MEALS METFORMIN 2022-0 Yes [id number] TAKE 1 [facility] 1,000 mg 5-16 TABLET BY ity of tablet 00:00: MOUTH 00 TWICE Medical DAILY WITH Branch MEALS METFORMIN 2022-0 Yes [id number] TAKE 1 [facility] 1,000 mg 5-16 TABLET BY ity of tablet 00:00: MOUTH 00 TWICE Medical DAILY WITH Branch MEALS METFORMIN 2022-0 Yes [id number] TAKE 1 [facility] 1,000 mg 5-16 TABLET BY ity of tablet 00:00: MOUTH 00 TWICE Medical DAILY WITH Branch MEALS METFORMIN 2022-0 Yes [id number] TAKE 1 [facility] 1,000 mg 5-16 TABLET BY ity of tablet 00:00: MOUTH 00 TWICE Medical DAILY WITH Branch MEALS metformin 2022-0 Yes TAKE 1 [facility] (GLUCOPHAGE 5-16 TABLET BY Col lege ) 1000 MG 00:00: MOUTH of tablet 00 TWICE Medicin DAILY WITH e MEALS metformin 2022-0 Yes TAKE 1 [facility] (GLUCOPHAGE 5-16 TABLET BY Col lege ) 1000 MG 00:00: MOUTH of tablet 00 TWICE Medicin DAILY WITH e MEALS metformin Yes TAKE 1 [facility] (GLUCOPHAGE 5-16 TABLET BY Col judge ) 1000 MG 00:00: MOUTH of tablet 00 TWICE Medicin DAILY WITH e MEALS METFORMIN 0 2021- No [id number] TAKE 1 [facility] 1,000 mg 5-16 11-21 TABLET BY ity o f tablet 00:00: 00:00 MOUTH [place] 00 :00 TWICE Medical DAILY WITH Branch MEALS METFORMIN 2021-0 2021- No [id number] TAKE 1 [facility] 1,000 mg 5-16 11-21 TABLET BY ity o f tablet 00:00: 00:00 MOUTH [place] 00 :00 TWICE Medical DAILY WITH Branch MEALS HYDRALAZINE 2021- No [id number] TAKE 1 [facility] 100 mg 5-16 09-06 TABLET BY [facility] of tablet 00:00: 00:00 MOUTH [place] 00 :00 THREE Medical TIMES Branch DAILY LISINOPRIL 0 Yes [id number] TAKE 1/2 [facility] 40 mg 5-13 TABLET BY [facility] of tablet 00:00: MOUTH [place] 00 TWICE Medical DAILY Branch LISINOPRIL 2021-0 Yes [id number] TAKE 1/2 [facility] 40 mg 5-13 TABLET BY [facility] of tablet 00:00: MOUTH [place] 00 TWICE Medical DAILY Branch LISINOPRIL 2021-0 Yes [id number] TAKE 1/2 [facility] 40 mg 5-13 TABLET BY [facility] of tablet 00:00: MOUTH [place] 00 TWICE Medical DAILY Branch LISINOPRIL 2021-0 Yes [id number] TAKE 1/2 [facility] 40 mg 5-13 TABLET BY [facility] of tablet 00:00: MOUTH [place] 00 TWICE Medical DAILY Branch LISINOPRIL 2021-0 Yes [id number] TAKE 1/2 [facility] 40 mg 5-13 TABLET BY [facility] of tablet 00:00: MOUTH [place] 00 TWICE Medical DAILY Branch LISINOPRIL 2021-0 Yes [id number] TAKE 1/2 [facility] 40 mg 5-13 TABLET BY [facility] of tablet 00:00: MOUTH [place] 00 TWICE Medical DAILY Branch LISINOPRIL 2021-0 Yes [id number] TAKE 1/2 [facility] 40 mg 5-13 TABLET BY [facility] of tablet 00:00: MOUTH [place] 00 TWICE Medical DAILY Branch LISINOPRIL 2021-0 2021- No [id number] TAKE 1/2 [facility] 40 mg 5-13 08-08 TABLET BY ity of tablet 00:00: 00:00 MOUTH [place] 00 :00 TWICE Medical DAILY Branch LISINOPRIL 2021- No [id number] TAKE 1/2 [facility] 40 mg 03-13 TABLET BY ity of tablet 00:00: 00:00 MOUTH [place] 00 :00 TWICE Medical DAILY Branch HUMULIN Yes [id number] ADMINISTER [facility] 70/30 U-100 -11 70 UNITS ity of INSULIN 100 00:00: UNDER THE [place] unit/mL 00 SKIN EVERY Medica l (70-30) MORNING Branch suspension THEN ADMINISTER 60 UNITS UNDER THE SKIN EVERY EVENING HUMULIN Yes [id number] ADMINISTER [facility] 70/30 U-100 -11 70 UNITS ity of INSULIN 100 00:00: UNDER THE [place] unit/mL 00 SKIN EVERY Medica l (70-30) MORNING Branch suspension THEN ADMINISTER 60 UNITS UNDER THE SKIN EVERY EVENING HUMULIN Yes [id number] ADMINISTER [facility] 70/30 U-100 03-11 70 UNITS ity of INSULIN 100 00:00: UNDER THE [place] unit/mL 00 SKIN EVERY Medica l (70-30) MORNING Branch suspension THEN ADMINISTER 60 UNITS UNDER THE SKIN EVERY EVENING HUMULIN Yes [id number] ADMINISTER [facility] 70/30 U-100 -11 70 UNITS ity of INSULIN 100 00:00: UNDER THE [place] unit/mL 00 SKIN EVERY Medica l (70-30) MORNING Branch suspension THEN ADMINISTER 60 UNITS UNDER THE SKIN EVERY EVENING HUMULIN Yes [id number] ADMINISTER [facility] 70/30 U-100 11 70 UNITS ity of INSULIN 100 00:00: UNDER THE [place] unit/mL 00 SKIN EVERY Medica l (70-30) MORNING Branch suspension THEN ADMINISTER 60 UNITS UNDER THE SKIN EVERY EVENING HUMULIN 2021- No [id number] ADMINISTER [facility] 70/30 U-100 03-11 08-03 70 UNITS ity of INSULIN 100 00:00: 00:00 UNDER THE [place] unit/mL 00 :00 SKIN EVERY Medica l (70-30) MORNING Branch suspension THEN ADMINISTER 60 UNITS UNDER THE SKIN EVERY EVENING HYDROcodone Yes [id number] 1{tbl} Take 1 [facility] ally -acetaminop 5 tablet by ity of hen 7.5-325 00:00: [...] for Pain. Indication s: chronic pain GABAPENTIN Yes [id number] TAKE 1 [facility] 600 mg 5-02 TABLET BY ity of tablet 00:00: MOUTH [place] 00 THREE Medical TIMES Branch DAILY BD INSULIN Yes [id number] USE 1 U nivers SYRINGE 5-02 SYRINGE ity of U-500 2 00:00: TWICE [place] mL 31 gauge 00 DAILY WITH Me dical x 15/64" MEALS. Branch Syrg BD INSULIN Yes [id number] USE 1 U nivers SYRINGE 5-02 SYRINGE ity of U-500 2 00:00: TWICE [place] mL 31 gauge 00 DAILY WITH Me dical x 15/64" MEALS. Branch Syrg BD INSULIN Yes [id number] USE 1 U nivers SYRINGE 5-02 SYRINGE ity of U-500 2 00:00: TWICE [place] mL 31 gauge 00 DAILY WITH Me dical x 15/64" MEALS. Branch Syrg BD INSULIN Yes [id number] USE 1 U nivers SYRINGE 5-02 SYRINGE ity of U-500 2 00:00: TWICE [place] mL 31 gauge 00 DAILY WITH Me dical x 15/64" MEALS. Branch Syrg BD INSULIN Yes [id number] USE 1 U nivers SYRINGE 5-02 SYRINGE ity of U-500 2 00:00: TWICE [place] mL 31 gauge 00 DAILY WITH Me dical x 15/64" MEALS. Branch Syrg BD INSULIN Yes [id number] USE 1 U nivers SYRINGE 5-02 SYRINGE ity of U-500 2 00:00: TWICE [place] mL 31 gauge 00 DAILY WITH Me dical x 15/64" MEALS. Branch Syrg BD INSULIN 2021-0 Yes [id number] USE 1 U nivers SYRINGE 5-02 SYRINGE ity of U-500 2 00:00: TWICE [place] mL 31 gauge 00 DAILY WITH Me dical x 15/64" MEALS. Branch Syrg BD INSULIN 2021-0 Yes [id number] USE 1 U nivers SYRINGE 5-02 SYRINGE ity of U-500 2 00:00: TWICE [place] mL 31 gauge 00 DAILY WITH Me dical x 15/64" MEALS. Branch Syrg BD INSULIN 2021-0 Yes [id number] USE 1 U nivers SYRINGE 5-02 SYRINGE ity of U-500 2 00:00: TWICE [place] mL 31 gauge 00 DAILY WITH Me dical x 15/64" MEALS. Branch Syrg BD INSULIN 2021-0 Yes [id number] USE 1 U nivers SYRINGE 5-02 SYRINGE ity of U-500 2 00:00: TWICE [place] mL 31 gauge 00 DAILY WITH Me dical x 15/64" MEALS. Branch Syrg BD INSULIN 2021-0 Yes [id number] USE 1 U nivers SYRINGE 5-02 SYRINGE ity of U-500 2 00:00: TWICE [place] mL 31 gauge 00 DAILY WITH Me dical x 15/64" MEALS. Branch Syrg BD INSULIN 2021-0 Yes [id number] USE 1 U nivers SYRINGE 5-02 S[place]INGE ity of U-500 2 00:00: TWICE [place] mL 31 gauge 00 DAILY WITH Me dical x 15/64" MEALS. Branch Syrg BD INSULIN 2021-0 Yes [id number] USE 1 U nivers SYRINGE 5-02 S[place]INGE ity of U-500 2 00:00: TWICE [place] mL 31 gauge 00 DAILY WITH Me dical x 15/64" MEALS. Branch Syrg BD INSULIN 2021-0 Yes [id number] USE 1 U nivers SYR[place]E 5-02 SYRINGE ity of U-500 2 00:00: TWICE [place] mL 31 gauge 00 DAILY WITH Me dical x 15/64" MEALS. Branch Syrg BD INSULIN 2021-0 Yes [id number] USE 1 U nivers SYRINGE 5-02 SYRINGE ity of U-500 1/2 00:00: TWICE [place] mL 31 gauge 00 DAILY WITH Me dical x 15/64" MEALS. Branch Syrg BD INSULIN 2021-0 Yes [id number] USE 1 U nivers S[place] 5-02 S[place]ING[place] ity of U-500 2 00:00: TWICE [place] mL 31 gauge 00 DAILY WITH Me dical x 15/64" MEALS. Branch Syrg BD INSULIN 2021-0 Yes [id number] USE 1 U nivers S[place] 5-02 S[place] ity of U-500 2 00:00: TWICE [place] mL 31 gauge 00 DAILY WITH Me dical x 15/64" MEALS. Branch Syrg BD INSULIN 2021-0 Yes [id number] USE 1 U nivers S[place] 5-02 S[place]ING[facility] ity of U-500 2 00:00: TWICE [place] mL 31 gauge 00 DAILY WITH Me dical x 15/64" MEALS. Branch Syrg BD INSULIN 2021-0 Yes [id number] USE 1 U nivers [place] 5-02 [facility] ity of U-500 2 00:00: TWICE [place] mL 31 gauge 00 DAILY WITH Me dical x 15/64" MEALS. Branch Syrg BD INSULIN 2021-0 Yes [id number] USE 1 U nivers [place] 5-02 [facility] ity of U-500 2 00:00: TWICE [place] mL 31 gauge 00 DAILY WITH Me dical x 15/64" MEALS. Branch Syrg BD INSULIN 2021-0 Yes [id number] USE 1 U nivers [place] 5-02 [facility] ity of U-500 2 00:00: TWICE [place] mL 31 gauge 00 DAILY WITH Me dical x 15/64" MEALS. Branch Syrg BD INSULIN 2021-0 Yes [id number] USE 1 U nivers [place] 5-02 S[place]INGE ity of U-500 2 00:00: TWICE [place] mL 31 gauge 00 DAILY WITH Me dical x 15/64" MEALS. Branch Syrg BD INSULIN 2021-0 Yes [id number] USE 1 U nivers [place] 5-02 [facility] ity of U-500 2 00:00: TWICE [place] mL 31 gauge 00 DAILY WITH Me dical x 15/64" MEALS. Branch Syrg BD INSULIN 2021-0 Yes [id number] USE 1 U nivers [place] 5-02 S[place] ity of U-500 2 00:00: TWICE [place] mL 31 gauge 00 DAILY WITH Me dical x 15/64" MEALS. Branch Syrg BD INSULIN 2021-0 Yes [id number] USE 1 U nivers [place] 5-02 S[place]INGE ity of U-500 2 00:00: TWICE [place] mL 31 gauge 00 DAILY WITH Me dical x 15/64" MEALS. Branch Syrg BD INSULIN 2021-0 Yes [id number] USE 1 U nivers S[place] 5-02 SYRINGE ity of U-500 2 00:00: TWICE [place] mL 31 gauge 00 DAILY WITH Me dical x 15/64" MEALS. Branch Syrg BD INSULIN 2021-0 Yes [id number] USE 1 U nivers S[place] 5-02 S[facility]INGE ity of U-500 2 00:00: TWICE [place] mL 31 gauge 00 DAILY WITH Me dical x 15/64" MEALS. Branch Syrg BD INSULIN 2021-0 Yes [id number] USE 1 U nivers [place] 5-02 S[place]INGE ity of U-500 2 00:00: TWICE [place] mL 31 gauge 00 DAILY WITH Me dical x 15/64" MEALS. Branch Syrg BD INSULIN 0 Yes [id number] USE 1 U nivers [place] 5-02 S[place]INGE ity of U-500 2 00:00: TWICE [place] mL 31 gauge 00 DAILY WITH Me dical x 15/64" MEALS. Branch Syrg BD INSULIN 0 Yes [id number] USE 1 U nivers S[place]ING[place] 5-02 S[place]INGE ity of U-500 2 00:00: TWICE [place] mL 31 gauge 00 DAILY WITH Me dical x 15/64" MEALS. Branch Syrg BD INSULIN 2021-0 Yes [id number] USE 1 U nivers S[place] 5-02 S[place]INGE ity of U-500 2 00:00: TWICE [place] mL 31 gauge 00 DAILY WITH Me dical x 15/64" MEALS. Branch Syrg BD INSULIN 2021-0 Yes [id number] USE 1 U nivers [place] 5-02 S[place] ity of U-500 2 00:00: TWICE [place] mL 31 gauge 00 DAILY WITH Me dical x 15/64" MEALS. Branch Syrg BD INSULIN 2021-0 Yes [id number] USE 1 U nivers S[place] 5-02 S[place]INGE ity of U-500 2 00:00: TWICE [place] mL 31 gauge 00 DAILY WITH Me dical x 15/64" MEALS. Branch Syrg BD INSULIN 0 Yes [id number] USE 1 U nivers [place] 5-02 S[place]INGE ity of U-500 11/02 00:00: TWICE [place] mL 31 gauge 00 DAILY WITH Me dical x 15/64" MEALS. Branch Syrg BD INSULIN 0 Yes [id number] USE 1 U nivers S[place]ING[place] 5-02 S[facility]INGE ity of U-500 11/02 00:00: TWICE [place] mL 31 gauge 00 DAILY WITH Me dical x 15/64" MEALS. Branch Syrg BD INSULIN Yes [id number] USE 1 U nivers [place] 5-02 [facility]ING[facility] ity of U-500 11/02 00:00: TWICE [place] mL 31 gauge 00 DAILY WITH Me dical x 15/64" MEALS. Branch Syrg BD INSULIN Yes [id number] USE 1 U nivers S[place] 5-02 S[facility]INGE ity of U-500 11/02 00:00: TWICE [place] mL 31 gauge 00 DAILY WITH Me dical x 15/64" MEALS. Branch Syrg BD INSULIN Yes [id number] USE 1 U nivers [place] 5-02 [facility] ity of U-500 11/02 00:00: TWICE [place] mL 31 gauge 00 DAILY WITH Me dical x 15/64" MEALS. Branch Syrg BD INSULIN Yes [id number] USE 1 U nivers SYRING[place] 5-02 SYRINGE ity of U-500 11/02 00:00: TWICE [place] mL 31 gauge 00 DAILY WITH Me dical x 15/64" MEALS. Branch Syrg Insulin Yes USE 1 [facility] Syringe/Nee 5-02 S[facility]INGE [facility] U-500 00:00: TWICE of (BD INSULIN 00 DAILY WITH Me dicin SYRINGE MEALS. e U-500) 31G X 6MM 0.5 ML MISC Insulin Yes USE 1 [place] Syringe/Nee 5-02 [facility] U-500 00:00: TWICE of (BD INSULIN 00 DAILY WITH Me dicin SYRINGE MEALS. e U-500) 31G X 6MM 0.5 ML MISC GABAPENTIN 2021-0 2021- No [id number] TAKE 1 [facility] 600 mg 5-12 06- TABLET BY ity of tablet 00:00: 00:00 MOUTH [place] 00 :00 THREE Medical TIMES Branch DAILY sucralfate 2022-0 Yes [id number] 1g Take 1 [facility] 1 gram 3-27 tablet by ity of tablet 00:00: mouth [place] 00 before Medical meals and Branch at bedtime. sucralfate 2022-0 Yes [id number] 1g Take 1 [facility] 1 gram 3-27 tablet by ity of tablet 00:00: mouth [place] 00 before Medical meals and Branch at bedtime. sucralfate 2022-0 Yes [id number] 1g Take 1 [facility] 1 gram 3-27 tablet by ity of tablet 00:00: mouth [place] 00 before Medical meals and Branch at bedtime. sucralfate 2022-0 Yes [id number] 1g Take 1 [facility] 1 gram 3-27 tablet by ity of tablet 00:00: mouth [place] 00 before Medical meals and Branch at bedtime. sucralfate 2022-0 Yes [id number] 1g Take 1 [facility] 1 gram 3-27 tablet by ity of tablet 00:00: mouth [place] 00 before Medical meals and Branch at bedtime. sucralfate 2022-0 Yes [id number] 1g Take 1 [facility] 1 gram 3-27 tablet by ity of tablet 00:00: mouth [place] 00 before Medical meals and Branch at bedtime. sucralfate 2022-0 Yes [id number] 1g Take 1 [facility] 1 gram 3-27 tablet by ity of tablet 00:00: mouth [place] 00 before Medical meals and Branch at bedtime. sucralfate 2022-0 Yes [id number] 1g Take 1 [facility] 1 gram 3-27 tablet by ity of tablet 00:00: mouth [place] 00 before Medical meals and Branch at bedtime. sucralfate 2022-0 Yes [id number] 1g Take 1 [facility] 1 gram 3-27 tablet by ity of tablet 00:00: mouth [place] 00 before Medical meals and Branch at bedtime. sucralfate 2022-0 Yes [id number] 1g Take 1 [facility] 1 gram 3-27 tablet by ity of tablet 00:00: mouth [place] 00 before Medical meals and Branch at bedtime. sucralfate 2022-0 Yes [id number] 1g Take 1 [facility] 1 gram 3-27 tablet by ity of tablet 00:00: mouth [place] 00 before Medical meals and Branch at bedtime. sucralfate 2022-0 Yes [id number] 1g Take 1 [facility] 1 gram 3-27 tablet by ity of tablet 00:00: mouth [place] 00 before Medical meals and Branch at bedtime. sucralfate 2-0 Yes [id number] 1g Take 1 [facility] 1 gram 3-27 tablet by ity of tablet 00:00: mouth [place] 00 before Medical meals and Branch at bedtime. sucralfate 2022-0 Yes [id number] 1g Take 1 [facility] 1 gram 3-27 tablet by ity of tablet 00:00: mouth [place] 00 before Medical meals and Branch at bedtime. sucralfate 2021-0 Yes [id number] 1g Take 1 [facility] 1 gram 3-27 tablet by ity of tablet 00:00: mouth [place] 00 before Medical meals and Branch at bedtime. sucralfate 2021-0 Yes [id number] 1g Take 1 [facility] 1 gram 3-27 tablet by ity of tablet 00:00: mouth [place] 00 before Medical meals and Branch at bedtime. sucralfate 2021-0 Yes [id number] 1g Take 1 [facility] 1 gram 3-27 tablet by ity of tablet 00:00: mouth [place] 00 before Medical meals and Branch at bedtime. sucralfate 2021-0 Yes [id number] 1g Take 1 [facility] 1 gram 3-27 tablet by ity of tablet 00:00: mouth [place] 00 before Medical meals and Branch at bedtime. sucralfate 2021-0 Yes [id number] 1g Take 1 [facility] 1 gram 3-27 tablet by ity of tablet 00:00: mouth [place] 00 before Medical meals and Branch at bedtime. sucralfate 2021-0 Yes [id number] 1g Take 1 [facility] 1 gram 3-27 tablet by ity of tablet 00:00: mouth [place] 00 before Medical meals and Branch at bedtime. sucralfate 2-0 Yes [id number] 1g Take 1 [facility] 1 gram 3-27 tablet by ity of tablet 00:00: mouth [place] 00 before Medical meals and Branch at bedtime. sucralfate 2022-0 Yes [id number] 1g Take 1 [facility] 1 gram 3-27 tablet by ity of tablet 00:00: mouth [place] 00 before Medical meals and Branch at bedtime. sucralfate 2-0 Yes [id number] 1g Take 1 [facility] 1 gram 3-27 tablet by ity of tablet 00:00: mouth [place] 00 before Medical meals and Branch at bedtime. sucralfate 2022-0 Yes [id number] 1g Take 1 [facility] 1 gram 3-27 tablet by ity of tablet 00:00: mouth [place] 00 before Medical meals and Branch at bedtime. sucralfate 2022-0 Yes [id number] 1g Take 1 [facility] 1 gram 3-27 tablet by ity of tablet 00:00: mouth [place] 00 before Medical meals and Branch at bedtime. sucralfate 2022-0 Yes [id number] 1g Take 1 [facility] 1 gram 3-27 tablet by ity of tablet 00:00: mouth [place] 00 before Medical meals and Branch at bedtime. sucralfate 2022-0 Yes [id number] 1g Take 1 [facility] 1 gram 3-27 tablet by ity of tablet 00:00: mouth [place] 00 before Medical meals and Branch at bedtime. sucralfate 2022-0 Yes [id number] 1g Take 1 [facility] 1 gram 3-27 tablet by ity of tablet 00:00: mouth [place] 00 before Medical meals and Branch at bedtime. sucralfate 2-0 Yes [id number] 1g Take 1 [facility] 1 gram 3-27 tablet by ity of tablet 00:00: mouth [place] 00 before Medical meals and Branch at bedtime. sucralfate 2-0 Yes [id number] 1g Take 1 [facility] 1 gram 3-27 tablet by ity of tablet 00:00: mouth [place] 00 before Medical meals and Branch at bedtime. sucralfate 2022-0 Yes [id number] 1g Take 1 [facility] 1 gram 3-27 tablet by ity of tablet 00:00: mouth [place] 00 before Medical meals and Branch at bedtime. sucralfate 2022-0 Yes [id number] 1g Take 1 [facility] 1 gram 3-27 tablet by ity of tablet 00:00: mouth [place] 00 before Medical meals and Branch at bedtime. sucralfate 2022-0 Yes [id number] 1g Take 1 [facility] 1 gram 3-27 tablet by ity of tablet 00:00: mouth [place] 00 before Medical meals and Branch at bedtime. sucralfate 2022-0 Yes [id number] 1g Take 1 [facility] 1 gram 3-27 tablet by ity of tablet 00:00: mouth [place] 00 before Medical meals and Branch at bedtime. sucralfate 2022-0 Yes [id number] 1g Take 1 [facility] 1 gram 3-27 tablet by ity of tablet 00:00: mouth [place] 00 before Medical meals and Branch at bedtime. sucralfate 2022-0 Yes [id number] 1g Take 1 [facility] 1 gram 3-27 tablet by ity of tablet 00:00: mouth 00 before Medical meals and Branch at bedtime. sucralfate 2022-0 Yes [id number] 1g Take 1 [facility] 1 gram 3-27 tablet by ity of tablet 00:00: mouth [place] 00 before Medical meals and Branch at bedtime. sucralfate 2022-0 Yes [id number] 1g Take 1 [facility] 1 gram 3-27 tablet by ity of tablet 00:00: mouth [place] 00 before Medical meals and Branch at bedtime. sucralfate 2-0 Yes [id number] 1g Take 1 [facility] 1 gram 3-27 tablet by ity of tablet 00:00: mouth [place] 00 before Medical meals and Branch at bedtime. sucralfate 2021-0 Yes 1g Take 1 g [place] [facility] (CARAFATE) 3-27 by mouth. [facility] 1 g tablet 00:00: Medicin e sucralfate 2021-0 Yes 1g Take 1 g [place] [facility] (CARAFATE) 3-27 by mouth. [facility] 1 g tablet 00:00: Medicin e sucralfate 2021-0 Yes 1g Take 1 g [place] [facility] (CARAFATE) 3-27 by mouth. [facility] [...] mari 1 mg Tab 02 Center lubiproston 2022-0 Yes 24ug Q.5D Take [address] [facility] [...] times daily as needed for Anxiety. hydrALAZINE 0 Yes 10mg Q.[id number] Take [address] [facility] (APRESOLINE 3-11 [id number] [facility] ) 10 MG [...] MG 02 Center tablet gabapentin Yes 100mg Q.[id number] Take [address] [facility] (NEURONTIN) 3-11 [id number] mg by L ukes 100 MG 14:10: [...] Center daily as needed for Nausea. liraglutide [address] [facility] (Victoza 3-11 subcutaneo [...] needed for Anxiety. hydrALAZINE 2021-0 Yes 10mg Q.[id number] Take [address] [facility] (APRESOLINE 3-11 [id number] by [facility] ) 10 MG [...] MG 02 Center tablet gabapentin Yes 100mg Q.[id number] Take [address] [facility] (NEURONTIN) 3-11 [id number] mg by L ukes 100 MG 14:10: [...] 02 Center (18 mg/3 mL) PnIj metoprolol Yes 100mg QD Take [address] [facility] [address] [facility] succinate 3-11 mg by [facility] (TOPROL-XL) 14:10: mouth Medic al 100 MG 24 02 daily. Center hr tablet lisinopriL Yes 40mg QD Take [address] [facility] (PRINIVIL,Z 3-11 by mouth [facility] ESTRIL) 40 14:10: daily. Medic al MG tablet 02 Center prucaloprid Yes 2mg QD Take [address] [facility] e 3-11 by mouth [facility] (Motegrity) 14:10: daily. Medi mari 1 mg Tab 02 Center lubiproston Yes 24ug Q.5D Take [address] [facility] [...] times daily as needed for Anxiety. hydrALAZINE 0 Yes 10mg Q.[id number] Take [address] [facility] (APRESOLINE 3-11 [id number] by mouth 3 [facility] ) 10 MG 14:10: 3D (three) Medical tablet 02 times Center daily In am. hydroCHLORO 0 Yes 25mg QD Take [address] [facility] thiazide 3-11 by mouth [facility] (HYDRODIURI 14:10: daily. Medi mari L) 25 MG 02 Center tablet spironolact 0 Yes 25mg QD Take [address] [facility] one 3-11 by mouth [facility] (ALDACTONE) 14:10: daily. Medi mari 25 MG 02 Center tablet gabapentin 0 Yes 100mg Q.[id number] Take [address] [facility] (NEURONTIN) 3-11 [id number] mg by L ukes 100 MG 14:10: 3D mouth 3 Medical capsule 02 (three) Center times daily. amLODIPine Yes 10mg QD Take [address] [facility] (NORVASC) 3-11 by mouth [facility] 10 MG 14:10: daily In Medical tablet 02 am. Center insulin [address] [facility] aspart 3-11 [facility]o [facility] protamine-i 14:10: usly 2 Medi mari nsulin 02 (two) Center aspart times (NovoLOG daily with MIX 70/30) breakfast 100 unit/mL and (70-30) dinner. injection metFORMIN 0 Yes 1000mg Take 1,[address] [facility] (GLUCOPHAGE 3-11 mg by [facility] ) 1000 MG 14:10: mouth 2 Medic al tablet 02 (two) Center times daily with breakfast and dinner. ondansetron 0 Yes 4mg Take [address] [facility] (ZOFRAN) 4 3-11 by mouth 2 [facility] MG tablet 14:10: (two) Medical 02 times Center daily as needed for Nausea. liraglutide [address] [facility] (Victoza 3-[facility] 2-[facility]) 0.6 14:10: usly. Medica l mg/0.1 mL 02 Center (18 mg/3 mL) PnIj metoprolol 0 Yes 100mg QD Take [address] succinate 3-11 mg by [facility] (TOPROL-XL) 14:10: mouth Medic al 100 MG 24 02 daily. Center hr tablet lisinopriL Yes 40mg QD Take [address] (PRINIVIL,Z 3-11 by mouth [facility] ESTRIL) 40 14:10: daily. Medic al MG tablet 02 Center prucaloprid Yes 2mg QD Take [address] [facility] e 3-11 by mouth [facility] (Motegrity) 14:10: daily. Medi mari 1 mg Tab 02 Center lubiproston 0 Yes 24ug Q.5D Take [address] [facility] e (AMITIZA) 3-11 mcg by [facility] 24 MCG 14:10: mouth 2 Medical capsule 02 (two) Center times daily. pantoprazol Yes 40mg QD Take [address] [facility] e 3-11 by mouth [facility] (PROTONIX) 14:10: daily. Medic al 40 MG 02 Center tablet clonazePAM 0 Yes .5mg Take 0.[address] [facility] (KlonoPIN) 3-11 mg by [facility] 0.5 MG 14:10: mouth 2 Medical tablet 02 (two) Center times daily as needed for Anxiety. hydrALAZINE 0 Yes 10mg Q.[id number] Take [address] [facility] (APRESOLINE 3-11 [id number] by mouth 3 [facility] ) 10 MG [...] MG 02 Center tablet gabapentin Yes 100mg Q.[id number] Take [address] [facility] (NEURONTIN) 3-11 [id number] mg by L ukes 100 MG 14:10: [...] mL 02 Center (18 mg/3 mL) PnIj METOPROLOL Yes TAKE [...] :00 TWICE Medical DAILY Branch HYDROCHLORO Yes [id number] 12.5mg TAKE 1 [facility] THIAZIDE 1-19 CAPSULE BY ity o f 12.5 mg 00:00: MOUTH [place] capsule 00 DAILY Medical Branch HYDROCHLORO 2021-0 Yes [id number] 12.5mg TAKE 1 [facility] THIAZIDE 1-19 CAPSULE BY ity o f 12.5 mg 00:00: MOUTH [place] capsule 00 DAILY Medical Branch HYDROCHLORO 2-0 Yes [id number] 12.5mg TAKE 1 [facility] THIAZIDE 1-19 CAPSULE BY ity o f 12.5 mg 00:00: MOUTH [place] capsule 00 DAILY Medical Branch HYDROCHLORO 2-0 Yes [id number] 12.5mg TAKE 1 [facility] THIAZIDE 1-19 CAPSULE BY ity o f 12.5 mg 00:00: MOUTH [place] capsule 00 DAILY Medical Branch HYDROCHLORO 2-0 2- No [id number] 12.5mg TAKE 1 [facility] THIAZIDE 1-19 07-18 CAPSULE BY ity of 12.5 mg 00:00: 00:00 MOUTH [place] capsule 00 :00 DAILY Medical Branch Prucaloprid 2021-0 Yes [id number] 2mg Take 2 mg [facility] Succinate 1-06 by mouth [facility] 2 MG TABS 00:00: daily. of Medicin e Prucaloprid 0 Yes [id number] 2mg Take 2 mg [facility] Succinate 1-06 by mouth [facility] 2 MG TABS 00:00: daily. of Medicin e PEG-KCl-NaC Yes [id number] [MOVI B aylor l-NaSulf-Na 1-06 PREP] Take [facility] 00:[facility]: as of (MOVIPREP) 00 directed. Medi patsy 100 g SOLR e Prucaloprid 0 Yes [id number] 2mg Take 2 mg [facility] Succinate 1-06 by mouth [facility] 2 MG TABS 00:00: daily. of Medicin e Prucaloprid 0 Yes [id number] 2mg Take 2 mg [facility] e Succinate 1-06 by mouth [...] FOR CHEST PAIN. nitroglycer 2020-11 Yes nitroglyce [facility] in 12-28 rin 0.4 mg [facility] (NITROSTAT) 00:00: sublingual of 0.4 mg [address] 1 e tablet TABLET UNDER THE TONGUE EVERY 5 MINUTES NEEDED FOR CHEST PAIN. nitroglycer 2020-11 Yes nitroglyce [facility] in 12-28 rin 0.4 mg [facility] (NITROSTAT) [...] NEEDED FOR CHEST PAIN. DICLOFENAC 2020-11 Yes [id number] APPLY TO Univers SODIUM 1 % 2-02 THE ity of gel 00:00: AFFECTED [place] 00 [facility] FOUR Medical TIMES Branch DAILY DICLOFENAC 2020-11 Yes [id number] APPLY TO Univers SODIUM 1 % 2-02 THE ity of gel 00:00: AFFECTED [place] 00 AREA FOUR Medical TIMES Branch DAILY DICLOFENAC 2020-11 Yes [id number] APPLY TO Univers SODIUM 1 % 2-02 THE ity of gel 00:00: AFFECTED [place] 00 AREA FOUR Medical TIMES Branch DAILY DICLOFENAC 2020-11 Yes [id number] APPLY TO Univers SODIUM 1 % 2-02 THE ity of gel 00:00: AFFECTED [place] 00 AREA FOUR Medical TIMES Branch DAILY DICLOFENAC 2020-11 Yes [id number] APPLY TO Univers SODIUM 1 % 2-02 THE ity of gel 00:00: AFFECTED [place] 00 [facility] FOUR Medical TIMES Branch DAILY DICLOFENAC 2020-11 Yes [id number] APPLY TO Univers SODIUM 1 % 2-02 THE ity of gel 00:00: AFFECTED [place] 00 [facility] FOUR Medical TIMES Branch DAILY DICLOFENAC 2020-11 Yes [id number] APPLY TO Univers SODIUM 1 % 2-02 THE ity of gel 00:00: AFFECTED [place] 00 AREA FOUR Medical TIMES Branch DAILY DICLOFENAC 2020-11 Yes [id number] APPLY TO Univers SODIUM 1 % 2-02 THE ity of gel 00:00: AFFECTED [place] 00 AREA FOUR Medical TIMES Branch DAILY DICLOFENAC 2020-11 Yes [id number] APPLY TO Univers SODIUM 1 % 2-02 THE ity of gel 00:00: AFFECTED [place] 00 AREA FOUR Medical TIMES Branch DAILY DICLOFENAC 2020-11 Yes [id number] APPLY TO Univers SODIUM 1 % 2-02 THE ity of gel 00:00: AFFECTED [place] 00 AREA FOUR Medical TIMES Branch DAILY DICLOFENAC 2020-11 Yes [id number] APPLY TO Univers SODIUM 1 % 2-02 THE ity of gel 00:00: AFFECTED [place] 00 AREA FOUR Medical TIMES Branch DAILY DICLOFENAC 2020-11 Yes [id number] APPLY TO Univers SODIUM 1 % 2-02 THE ity of gel 00:00: AFFECTED [place] 00 AREA FOUR Medical TIMES Branch DAILY DICLOFENAC 2020-11 Yes [id number] APPLY TO Univers SODIUM 1 % 2-02 THE ity of gel 00:00: AFFECTED [place] 00 [facility] FOUR Medical TIMES Branch DAILY DICLOFENAC 2020-11 Yes [id number] APPLY TO Univers SODIUM 1 % 2-02 THE ity of gel 00:00: AFFECTED [place] 00 AREA FOUR Medical TIMES Branch DAILY DICLOFENAC 2020-11 Yes [id number] APPLY TO Univers SODIUM 1 % 2-02 THE ity of gel 00:00: AFFECTED [place] 00 [facility] FOUR Medical TIMES Branch DAILY DICLOFENAC 2020-11 Yes [id number] APPLY TO Univers SODIUM 1 % 2-02 THE ity of gel 00:00: AFFECTED [place] 00 AREA FOUR Medical TIMES Branch DAILY DICLOFENAC 2020-11 Yes [id number] APPLY TO Univers SODIUM 1 % 2-02 THE ity of gel 00:00: AFFECTED [place] 00 [facility] FOUR Medical TIMES Branch DAILY DICLOFENAC 2020-11 Yes [id number] APPLY TO Univers SODIUM 1 % 2-02 THE ity of gel 00:00: AFFECTED [place] 00 AREA FOUR Medical TIMES Branch DAILY DICLOFENAC 2020-11 Yes [id number] APPLY TO Univers SODIUM 1 % 2-02 THE ity of gel 00:00: AFFECTED [place] 00 [facility] FOUR Medical TIMES Branch DAILY DICLOFENAC 2020-11 Yes [id number] APPLY TO [facility] 1 % 2-02 THE ity of gel 00:00: AFFECTED [place] 00 ARE[facility] FOUR Medical TIMES Branch DAILY DICLOFENAC 2020-11 Yes [id number] APPLY TO [facility] 1 % 2-02 THE ity of gel 00:00: AFFECTED [place] 00 ARE[facility] FOUR Medical TIMES Branch DAILY DICLOFENAC 2020-11 Yes [id number] APPLY TO [facility] 1 % 2-02 [...] AREA FOUR TIMES DAILY DICLOFENAC 2020-11- No [id number] APPLY TO [facility] 1 % 2-02 10-25 THE ity of gel 00:00: 00:00 AFFECTED [place] 00 :00 AREA FOUR Medical TIMES Branch DAILY DICLOFENAC 2020-11- No [id number] APPLY TO [facility] 1 % 2-02 10-25 THE ity of gel 00:00: 00:00 AFFECTED [place] 00 :00 AREA FOUR Medical TIMES Branch DAILY colchicine 2020-11 Yes [id number] .6mg Take 1 U nivers 0.6 mg 0-07 tablet by ity of tablet 00:00: mouth [place] 00 daily. Medical Branch colchicine 2020-11 Yes [id number] .6mg Take 1 U nivers 0.6 mg 0-07 tablet by ity of tablet 00:00: mouth [place] 00 daily. [facility] Branch colchicine 2020-11 Yes [id number] .6mg Take 1 U nivers 0.6 mg 0-07 tablet by ity of tablet 00:00: mouth [place] 00 daily. [facility] colchicine 2020-11 Yes [id number] .6mg Take 1 U nivers 0.6 mg 0-07 tablet by ity of tablet 00:00: mouth [place] 00 daily. [facility] Branch colchicine 2020-11 Yes [id number] .6mg Take 1 U nivers 0.6 mg 0-07 tablet by ity of tablet 00:00: mouth [place] 00 daily. [facility] Branch colchicine 2020-11 Yes [id number] .6mg Take 1 U nivers 0.6 mg 0-07 tablet by ity of tablet 00:00: mouth [place] 00 daily. [facility] Branch colchicine 2020-11 Yes [id number] .6mg Take 1 U nivers 0.6 mg 0-07 tablet by ity of tablet 00:00: mouth [place] 00 daily. [facility] Branch colchicine 2020-11 Yes [id number] .6mg Take 1 U nivers 0.6 mg 0-07 tablet by ity of tablet 00:00: mouth [place] 00 daily. [facility] colchicine 2020-11 Yes [id number] .6mg Take 1 U nivers 0.6 mg 0-07 tablet by ity of tablet 00:00: mouth [place] 00 daily. [facility] Branch colchicine 2020-11 Yes [id number] .6mg Take 1 U nivers 0.6 mg 0-07 tablet by ity of tablet 00:00: mouth [place] 00 daily. Medical Branch colchicine 2020-11 Yes [id number] .6mg Take 1 U nivers 0.6 mg 0-07 tablet by ity of tablet 00:00: mouth [place] 00 daily. Medical Branch colchicine 2020-11 Yes [id number] .6mg Take 1 U nivers 0.6 mg 0-07 tablet by ity of tablet 00:00: mouth [place] 00 daily. [facility] colchicine 2020-11 Yes [id number] .6mg Take 1 U nivers 0.6 mg 0-07 tablet by ity of tablet 00:00: mouth [place] 00 daily. [facility] colchicine 2020-11- No [id number] .6mg Take 1 [facility] 0.6 mg 0-07 09-19 tablet by ity of tablet 00:00: 00:00 mouth [place] 00 :00 daily. [facility] TRUEPLUS Yes USE TWICE Univ ers INSULIN 1 9-14 DAILY ity of mL 30 gauge 00:00: [place] x 5/16 Syrg 00 [facility] TRUEPLUS 0 Yes USE TWICE Univ ers INSULIN 1 9-14 DAILY ity of mL 30 gauge 00:00: [place] x 5/16 Syrg 00 [facility] TRUEPLUS 2020-0 Yes USE TWICE Univ ers INSULIN 1 9-14 DAILY ity of mL 30 gauge 00:00: [place] x 5/16 Syrg 00 [facility] TRUEPLUS 2020-0 Yes USE TWICE Univ ers INSULIN 1 9-14 DAILY ity of mL 30 gauge 00:00: [place] x 5/16 Syrg 00 [facility] TRUEPLUS 0 Yes USE TWICE Univ ers [...] 00:00: [place] x /16 Syrg Medical Branch mirtazapine 0 Yes 15mg Take 15 mg Univers 15 mg 7-14 by mouth ity of tablet 09:38: at [place] [address] bedtime. Medical Branch mesalamine 0 Yes 1.5g Take 1.5 g U nivers 0.375 gram 7-14 by mouth ity o f 24 hr 09:38: daily. [facility] [place] 49 Medical Branch mirtazapine 2020-0 Yes 15mg Take 15 mg Univers 15 mg 7-14 by mouth ity of tablet 09:38: at [place] [address] bedtime. Medical Branch mesalamine 2020-0 Yes 1.5g Take 1.5 g U nivers 0.375 gram 7-14 by mouth ity o f 24 hr 09:38: daily. [place] [facility] 49 Medical Branch mirtazapine 2020-0 Yes 15mg Take 15 mg [facility] 15 mg 7-14 by mouth ity of tablet 09:38: at [place] [address] bedtime. Medical Branch mesalamine 2020-0 Yes 1.5g Take 1.5 g U nivers 0.375 gram 7-14 by mouth ity o f 24 hr 09:38: daily. [place] [facility] 49 Medical Branch mirtazapine 2020-0 Yes 15mg Take 15 mg [facility] 15 mg 7-14 by mouth ity of tablet 09:38: at [place] [address] bedtime. Medical Branch mesalamine 2020-0 Yes 1.5g Take 1.5 g U nivers 0.375 gram 7-14 by mouth ity o f 24 hr 09:38: daily. [place] [facility] 49 Medical Branch mirtazapine 2020-0 Yes 15mg Take 15 mg [facility] 15 mg 7-14 by mouth ity of tablet 09:38: at [place] [address] bedtime. Medical Branch mesalamine 2020-0 Yes 1.5g Take 1.5 g U nivers 0.375 gram 7-14 by mouth ity o f 24 hr 09:38: daily. [place] [facility] 49 [facility] Branch mirtazapine 2020-0 Yes 15mg Take 15 mg [facility] 15 mg 7-14 by mouth ity of tablet 09:38: at [place] [address] bedtime. Medical [place] mesalamine 2020-0 Yes 1.5g Take 1.5 g U nivers 0.375 gram 7-14 by mouth ity o f 24 hr 09:38: daily. [facility] [place] 49 Medical Branch mirtazapine 2020-0 Yes 15mg Take 15 mg [facility] 15 mg 7-14 by mouth ity of tablet 09:38: at [place] [address] bedtime. Medical [place] mesalamine 2020-0 Yes 1.5g Take 1.5 g U nivers 0.375 gram 7-14 by mouth ity o f 24 hr 09:38: daily. [facility] [place] 49 Medical Branch mirtazapine 2020-0 Yes 15mg Take 15 mg [facility] 15 mg 7-14 by mouth ity of tablet 09:38: at [place] [address] bedtime. Medical Branch mesalamine 2020-0 Yes 1.5g Take 1.5 g U nivers 0.375 gram 7-14 by mouth ity o f 24 hr 09:38: daily. [place] [facility] 49 Medical Branch mirtazapine 2020-0 Yes 15mg Take 15 mg [facility] 15 mg 7-14 by mouth ity of tablet 09:38: at [place] [address] bedtime. Medical [place] mesalamine 2020-0 Yes 1.5g Take 1.5 g U nivers 0.375 gram 7-14 by mouth ity o f 24 hr 09:38: daily. [place] [facility] 49 Medical Branch mirtazapine 2020-0 Yes 15mg Take 15 mg [facility] 15 mg 7-14 by mouth ity of tablet 09:38: at [place] [address] bedtime. Medical Branch mesalamine 2020-0 Yes 1.5g Take 1.5 g U nivers 0.375 gram 7-14 by mouth ity o f 24 hr 09:38: daily. [place] [facility] 49 Medical Branch mirtazapine 2020-0 Yes 15mg Take 15 mg [facility] 15 mg 7-14 by mouth ity of tablet 09:38: at [place] [address] bedtime. Medical Branch mesalamine 2020-0 Yes 1.5g Take 1.5 g U nivers 0.375 gram 7-14 by mouth ity o f 24 hr 09:38: daily. [place] [facility] 49 Medical Branch mirtazapine 2020-0 Yes 15mg Take 15 mg [facility] 15 mg 7-14 by mouth ity of tablet 09:38: at [place] [address] bedtime. Medical Branch mesalamine 2020-0 Yes 1.5g Take 1.5 g U nivers 0.375 gram 7-14 by mouth ity o f 24 hr 09:38: daily. [facility] [place] 49 Medical Branch mirtazapine 2020-0 Yes 15mg Take 15 mg Univers 15 mg 7-14 by mouth ity of tablet 09:38: at [place] [address] bedtime. Medical Branch mesalamine 2020-0 Yes 1.5g Take 1.5 g U nivers 0.375 gram 7-14 by mouth ity o f 24 hr 09:38: daily. [place] [facility] 49 Medical Branch mirtazapine 2020-0 Yes 15mg Take 15 mg [facility] 15 mg 7-14 by mouth ity of tablet 09:38: at [place] [address] bedtime. Medical Branch mesalamine 2020-0 Yes 1.5g Take 1.5 g U nivers 0.375 gram 7-14 by mouth ity o f 24 hr 09:38: daily. [place] [facility] 49 Medical Branch mirtazapine 2020-0 Yes 15mg Take 15 mg Univers 15 mg 7-14 by mouth ity of tablet 09:38: at [place] [address] bedtime. Medical Branch mesalamine 2020-0 Yes 1.5g Take 1.5 g U nivers 0.375 gram 7-14 by mouth ity o f 24 hr 09:38: daily. [place] [facility] 49 Medical Branch mirtazapine 2020-0 Yes 15mg Take 15 mg [facility] 15 mg 7-14 by mouth ity of tablet 09:38: at [place] [address] bedtime. Medical Branch mesalamine 2020-0 Yes 1.5g Take 1.5 g U nivers 0.375 gram 7-14 by mouth ity o f 24 hr 09:38: daily. [place] [facility] 49 Medical Branch mirtazapine 2020-0 Yes 15mg Take 15 mg [facility] 15 mg 7-14 by mouth ity of tablet 09:38: at [place] [address] bedtime. Medical Branch mesalamine 2020-0 Yes 1.5g Take 1.5 g U nivers 0.375 gram 7-14 by mouth ity o f 24 hr 09:38: daily. [facility] [place] 49 Medical Branch mirtazapine 2020-0 Yes 15mg Take 15 mg [facility] 15 mg 7-14 by mouth ity of tablet 09:38: at [place] [address] bedtime. Medical Branch mesalamine 2020-0 Yes 1.5g Take 1.5 g U nivers 0.375 gram 7-14 by mouth ity o f 24 hr 09:38: daily. [facility] [place] 49 Medical Branch mirtazapine 2020-0 Yes 15mg Take 15 mg Univers 15 mg 7-14 by mouth ity of tablet 09:38: at [place] [address] bedtime. Medical Branch mesalamine 2020-0 Yes 1.5g Take 1.5 g U nivers 0.375 gram 7-14 by mouth ity o f 24 hr 09:38: daily. [facility] [place] 49 Medical Branch mirtazapine 2020-0 Yes 15mg Take 15 mg [facility] 15 mg 7-14 by mouth ity of tablet 09:38: at [place] [address] bedtime. Medical Branch mesalamine 2020-0 Yes 1.5g Take 1.5 g U nivers 0.375 gram 7-14 by mouth ity o f 24 hr 09:38: daily. [place] [facility] 49 Medical Branch mirtazapine 2020-0 Yes 15mg Take 15 mg [facility] 15 mg 7-14 by mouth ity of tablet 09:38: at [place] [address] bedtime. Medical [place] mesalamine 2020-0 Yes 1.5g Take 1.5 g U nivers 0.375 gram 7-14 by mouth ity o f 24 hr 09:38: daily. [place] [facility] 49 Medical Branch mirtazapine 2020-0 Yes 15mg Take 15 mg [facility] 15 mg 7-14 by mouth ity of tablet 09:38: at [place] [address] bedtime. Medical Branch mesalamine 2020-0 Yes 1.5g Take 1.5 g U nivers 0.375 gram 7-14 by mouth ity o f 24 hr 09:38: daily. [place] [facility] 49 Medical Branch mirtazapine 2020-0 Yes 15mg Take 15 mg Univers 15 mg 7-14 by mouth ity of tablet 09:38: at [place] [address] bedtime. Medical Branch mesalamine 2020-0 Yes 1.5g Take 1.5 g U nivers 0.375 gram 7-14 by mouth ity o f 24 hr 09:38: daily. [place] [facility] 49 Medical Branch mirtazapine 2020-0 Yes 15mg Take 15 mg Univers 15 mg 7-14 by mouth ity of tablet 09:38: at [place] [address] bedtime. Medical Branch mesalamine 2020-0 Yes 1.5g Take 1.5 g U nivers 0.375 gram 7-14 by mouth ity o f 24 hr 09:38: daily. [facility] [place] 49 Medical Branch mirtazapine 2020-0 Yes 15mg Take 15 mg Univers 15 mg 7-14 by mouth ity of tablet 09:38: at [place] [address] bedtime. Medical Branch mesalamine 2020-0 Yes 1.5g Take 1.5 g U nivers 0.375 gram 7-14 by mouth ity o f 24 hr 09:38: daily. [facility] [place] 49 Medical Branch mirtazapine 2020-0 Yes 15mg Take 15 mg [facility] 15 mg 7-14 by mouth ity of tablet 09:38: at [place] [address] bedtime. Medical Branch mesalamine 2020-0 Yes 1.5g Take 1.5 g U nivers 0.375 gram 7-14 by mouth ity o f 24 hr 09:38: daily. [place] [facility] 49 Medical Branch mirtazapine 2020-0 Yes 15mg Take 15 mg [facility] 15 mg 7-14 by mouth ity of tablet 09:38: at [place] [address] bedtime. Medical Branch mesalamine 2020-0 Yes 1.5g Take 1.5 g U nivers 0.375 gram 7-14 by mouth ity o f 24 hr 09:38: daily. [place] [facility] 49 Medical Branch mirtazapine 2020-0 Yes 15mg Take 15 mg [facility] 15 mg 7-14 by mouth ity of tablet 09:38: at [place] [address] bedtime. Medical Branch mesalamine 2020-0 Yes 1.5g Take 1.5 g U nivers 0.375 gram 7-14 by mouth ity o f 24 hr 09:38: daily. [place] [facility] 49 Medical Branch mirtazapine 2020-0 Yes 15mg Take 15 mg [facility] 15 mg 7-14 by mouth ity of tablet 09:38: at [place] [address] bedtime. Medical Branch mesalamine 2020-0 Yes 1.5g Take 1.5 g U nivers 0.375 gram 7-14 by mouth ity o f 24 hr 09:38: daily. [place] [facility] 49 Medical Branch mirtazapine 2020-0 Yes 15mg Take 15 mg [facility] 15 mg 7-14 by mouth ity of tablet 09:38: at [place] [address] bedtime. Medical Branch mesalamine 2020-0 Yes 1.5g Take 1.5 g U nivers 0.375 gram 7-14 by mouth ity o f 24 hr 09:38: daily. [facility] [place] 49 Medical Branch mirtazapine 2020-0 Yes 15mg Take 15 mg Univers 15 mg 7-14 by mouth ity of tablet 09:38: at [place] [address] bedtime. Medical Branch mesalamine 2020-0 Yes 1.5g Take 1.5 g U nivers 0.375 gram 7-14 by mouth ity o f 24 hr 09:38: daily. [facility] [place] 49 Medical Branch mirtazapine 2020-0 Yes 15mg Take 15 mg Univers 15 mg 7-14 by mouth ity of tablet 09:38: at [place] [address] bedtime. Medical Branch mesalamine 2020-0 Yes 1.5g Take 1.5 g U nivers 0.375 gram 7-14 by mouth ity o f 24 hr 09:38: daily. [place] capsule 49 Medical Branch mirtazapine 2020-0 Yes 15mg Take 15 mg Univers 15 mg 7-14 by mouth ity of tablet 09:38: at [place] [address] bedtime. Medical [place] mesalamine 2020-0 Yes 1.5g Take 1.5 g U nivers 0.375 gram 7-14 by mouth ity o f 24 hr 09:38: daily. [place] capsule 49 Medical Branch mirtazapine 2020-0 Yes 15mg Take 15 mg Univers 15 mg 7-14 by mouth ity of tablet 09:38: at [place] [address] bedtime. Medical Branch mesalamine 2020-0 Yes 1.5g Take 1.5 g U nivers 0.375 gram 7-14 by mouth ity o f 24 hr 09:38: daily. [place] capsule 49 Medical Branch mirtazapine 2020-0 Yes 15mg Take 15 mg Univers 15 mg 7-14 by mouth ity of tablet 09:38: at [place] [address] bedtime. Medical Branch mesalamine 2020-0 Yes 1.5g Take 1.5 g U nivers 0.375 gram 7-14 by mouth ity o f 24 hr 09:38: daily. [place] capsule 49 Medical Branch mirtazapine 2020-0 Yes 15mg Take 15 mg Univers 15 mg 7-14 by mouth ity of tablet 09:38: at [place] [address] bedtime. Medical Branch mesalamine 2020-0 Yes 1.5g Take 1.5 g U nivers 0.375 gram 7-14 by mouth ity o f 24 hr 09:38: daily. [place] capsule 49 Medical Branch mirtazapine 2020-0 Yes 15mg Take 15 mg Univers 15 mg 7-14 by mouth ity of tablet 09:38: at [place] [address] bedtime. Medical Branch mesalamine 2020-0 Yes 1.5g Take 1.5 g U nivers 0.375 gram 7-14 by mouth ity o f 24 hr 09:38: daily. [place] capsule 49 Medical Branch mirtazapine 2020-0 Yes 15mg Take 15 mg Univers 15 mg 7-14 by mouth ity of tablet 09:38: at [place] [address] bedtime. Medical Branch mesalamine 2020-0 Yes 1.5g Take 1.5 g U nivers 0.375 gram 7-14 by mouth ity o f 24 hr 09:38: daily. [place] capsule 49 Medical Branch mirtazapine 2020-0 Yes 15mg Take 15 mg Univers 15 mg 7-14 by mouth ity of tablet 09:38: at [place] [address] bedtime. Medical Branch mesalamine 2020-0 Yes 1.5g Take 1.5 g U nivers 0.375 gram 7-14 by mouth ity o f 24 hr 09:38: daily. [address] predniSONE 2021-0 Yes 10mg Take 10 mg U nivers 10 mg 6-22 by mouth ity of tablet 00:00: daily. [place] [facility] predniSONE 2021-0 Yes 10mg Take 10 mg U nivers 10 mg 6-22 by mouth ity of tablet 00:00: daily. [place] [facility] predniSONE 2021-0 Yes 10mg Take 10 mg U nivers 10 mg 6-22 by mouth ity of tablet 00:00: daily. [place] [facility] predniSONE 2021-0 Yes 10mg Take 10 mg U nivers 10 mg 6-22 by mouth ity of tablet 00:00: daily. [place] [facility] predniSONE 2021-0 Yes 10mg Take 10 mg U nivers 10 mg 6-22 by mouth ity of tablet 00:00: daily. [place] [facility] predniSONE 2021-0 Yes 10mg Take 10 mg U nivers 10 mg 6-22 by mouth ity of tablet 00:00: daily. [place] [facility] predniSONE 2021-0 Yes 10mg Take 10 mg U nivers 10 mg 6-22 by mouth ity of tablet 00:00: daily. [place] [facility] predniSONE 2021-0 Yes 10mg Take 10 mg U nivers 10 mg 6-22 by mouth ity of tablet 00:00: daily. [place] [facility] predniSONE 2021-0 Yes 10mg Take 10 mg U nivers 10 mg 6-22 by mouth ity of tablet 00:00: daily. [place] [facility] predniSONE 2021-0 Yes 10mg Take 10 mg U nivers 10 mg 6-22 by mouth ity of tablet 00:00: daily. [place] [facility] predniSONE 2021-0 Yes 10mg Take 10 mg U nivers 10 mg 6-22 by mouth ity of tablet 00:00: daily. [place] [facility] predniSONE 2021-0 Yes 10mg Take 10 mg U nivers 10 mg 6-22 by mouth ity of tablet 00:00: daily. [place] [facility] predniSONE 2021-0 Yes 10mg Take 10 mg U nivers 10 mg 6-22 by mouth ity of tablet 00:00: daily. [place] [facility] predniSONE 2021-0 Yes 10mg Take 10 mg U nivers 10 mg 6-22 by mouth ity of tablet 00:00: daily. [place] [facility] predniSONE 2021-0 Yes 10mg Take 10 mg U nivers 10 mg 6-22 by mouth ity of tablet 00:00: daily. [place] [facility] predniSONE 2021-0 Yes 10mg Take 10 mg U nivers 10 mg 6-22 by mouth ity of tablet 00:00: daily. [place] [facility] predniSONE 2021-0 Yes 10mg Take 10 mg U nivers 10 mg 6-22 by mouth ity of tablet 00:00: daily. [place] [facility] predniSONE 2021-0 Yes 10mg Take 10 mg U nivers 10 mg 6-22 by mouth ity of tablet 00:00: daily. [place] [facility] predniSONE 2021-0 Yes 10mg Take 10 mg U nivers 10 mg 6-22 by mouth ity of tablet 00:00: daily. [place] [facility] predniSONE 2021-0 Yes 10mg Take 10 mg U nivers 10 mg 6-22 by mouth ity of tablet 00:00: daily. [place] [facility] predniSONE 2021-0 Yes 10mg Take 10 mg U nivers 10 mg 6-22 by mouth ity of tablet 00:00: daily. [place] [facility] predniSONE 2021-0 Yes 10mg Take 10 mg U nivers 10 mg 6-22 by mouth ity of tablet 00:00: daily. [place] [facility] predniSONE 2021-0 Yes 10mg Take 10 mg U nivers 10 mg 6-22 by mouth ity of tablet 00:00: daily. [place] [facility] predniSONE 2021-0 Yes 10mg Take 10 mg U nivers 10 mg 6-22 by mouth ity of tablet 00:00: daily. [place] [facility] predniSONE 2021-0 Yes 10mg Take 10 mg U nivers 10 mg 6-22 by mouth ity of tablet 00:00: daily. [place] [facility] predniSONE 2021-0 Yes 10mg Take 10 mg U nivers 10 mg 6-22 by mouth ity of tablet 00:00: daily. [address] predniSONE 2021-0 Yes 10mg Take 10 mg U nivers 10 mg 6-22 by mouth ity of tablet 00:00: daily. [address] predniSONE 2021-0 Yes 10mg Take 10 mg U nivers 10 mg 6-22 by mouth ity of tablet 00:00: daily. [address] predniSONE 2021-0 Yes 10mg Take 10 mg U nivers 10 mg 6-22 by mouth ity of tablet 00:00: daily. [place] [facility] predniSONE 2021-0 Yes 10mg Take 10 mg U nivers 10 mg 6-22 by mouth ity of tablet 00:00: daily. [address] predniSONE 2021-0 Yes 10mg Take 10 mg U nivers 10 mg 6-22 by mouth ity of tablet 00:00: daily. [address] predniSONE 2021-0 Yes 10mg Take 10 mg U nivers 10 mg 6-22 by mouth ity of tablet 00:00: daily. [address] predniSONE 2021-0 Yes 10mg Take 10 mg U nivers 10 mg 6-22 by mouth ity of tablet 00:00: daily. [address] predniSONE 2021-0 Yes 10mg Take 10 mg U nivers 10 mg 6-22 by mouth ity of tablet 00:00: daily. [address] predniSONE 2021-0 Yes 10mg Take 10 mg U nivers 10 mg 6-22 by mouth ity of tablet 00:00: daily. [address] predniSONE 2021-0 Yes 10mg Take 10 mg U nivers 10 mg 6-22 by mouth ity of tablet 00:00: daily. [address] predniSONE 2021-0 Yes 10mg Take 10 mg U nivers 10 mg 6-22 by mouth ity of tablet 00:00: daily. [address] predniSONE 2021-0 Yes 10mg Take 10 mg U nivers 10 mg 6-22 by mouth ity of tablet 00:00: daily. [address] predniSONE 2021-0 Yes 10mg Take 10 mg U nivers 10 mg 6-22 by mouth ity of tablet 00:00: daily. [address] predniSONE 2021-0 Yes prednisone [facility] (DELTASONE) 6-22 10 mg [facility] 10 MG 00:00: tablet of tablet 00 TAKE 1 Medicin TABLET BY e MOUTH EVERY DAY predniSONE 2021-0 Yes prednisone [place] (DELTASONE) 6-22 10 mg [facility] 10 MG 00:00: tablet of tablet 00 TAKE 1 Medicin TABLET BY e MOUTH EVERY DAY predniSONE 2021-0 Yes prednisone [place] (DELTASONE) 6-22 10 mg [facility] 10 MG 00:00: tablet of tablet 00 TAKE 1 Medicin TABLET BY e MOUTH EVERY DAY spironolact 2020-0 Yes 25mg Take 25 mg [facility] one 25 mg 6-08 by mouth ity of tablet 00:00: daily. [facility] spironolact 2020-0 Yes 25mg Take 25 mg Univers one 25 mg 6-08 by mouth ity of tablet 00:00: daily. [place] [facility] spironolact 2020-0 Yes 25mg Take 25 mg Univers one 25 mg 6-08 by mouth ity of tablet 00:00: daily. [place] [facility] spironolact 2020-0 Yes 25mg Take 25 mg Univers one 25 mg 6-08 by mouth ity of tablet 00:00: daily. [place] [facility] spironolact 2020-0 Yes 25mg Take 25 mg Univers one 25 mg 6-08 by mouth ity of tablet 00:00: daily. [place] [facility] spironolact 2020-0 Yes 25mg Take 25 mg Univers one 25 mg 6-08 by mouth ity of tablet 00:00: daily. [place] [facility] spironolact 2020-0 Yes 25mg Take 25 mg Univers one 25 mg 6-08 by mouth ity of tablet 00:00: daily. [place] [facility] spironolact 2020-0 Yes 25mg Take 25 mg Univers one 25 mg 6-08 by mouth ity of tablet 00:00: daily. [place] [facility] spironolact 2020-0 Yes 25mg Take 25 mg Univers one 25 mg 6-08 by mouth ity of tablet 00:00: daily. [place] [facility] spironolact 2020-0 Yes 25mg Take 25 mg Univers one 25 mg 6-08 by mouth ity of tablet 00:00: daily. [place] [facility] spironolact 2020-0 Yes 25mg Take 25 mg Univers one 25 mg 6-08 by mouth ity of tablet 00:00: daily. [place] [facility] spironolact 2020-0 Yes 25mg Take 25 mg Univers one 25 mg 6-08 by mouth ity of tablet 00:00: daily. [place] [facility] spironolact 2020-0 Yes 25mg Take 25 mg Univers one 25 mg 6-08 by mouth ity of tablet 00:00: daily. [place] [facility] spironolact 2020-0 Yes 25mg Take 25 mg Univers one 25 mg 6-08 by mouth ity of tablet 00:00: daily. [place] [facility] spironolact 2020-0 Yes 25mg Take 25 mg Univers one 25 mg 6-08 by mouth ity of tablet 00:00: daily. [place] [facility] spironolact 2020-0 Yes 25mg Take 25 mg Univers one 25 mg 6-08 by mouth ity of tablet 00:00: daily. [place] [facility] spironolact 2020-0 Yes 25mg Take 25 mg [facility] one 25 mg 6-08 by mouth ity of tablet 00:00: daily. [place] [facility] spironolact 2020-0 Yes 25mg Take 25 mg Univers one 25 mg 6-08 by mouth ity of tablet 00:00: daily. [place] [facility] spironolact 2020-0 Yes 25mg Take 25 mg Univers one 25 mg 6-08 by mouth ity of tablet 00:00: daily. [place] [facility] spironolact 2020-0 Yes 25mg Take 25 mg Univers one 25 mg 6-08 by mouth ity of tablet 00:00: daily. [place] [facility] spironolact 2020-0 Yes 25mg Take 25 mg Univers one 25 mg 6-08 by mouth ity of tablet 00:00: daily. [place] [facility] spironolact 2020-0 Yes 25mg Take 25 mg Univers one 25 mg 6-08 by mouth ity of tablet 00:00: daily. [place] [facility] spironolact 2020-0 Yes 25mg Take 25 mg Univers one 25 mg 6-08 by mouth ity of tablet 00:00: daily. [place] [facility] spironolact 2020-0 Yes 25mg Take 25 mg Univers one 25 mg 6-08 by mouth ity of tablet 00:00: daily. [place] [facility] spironolact 2020-0 Yes 25mg Take 25 mg Univers one 25 mg 6-08 by mouth ity of tablet 00:00: daily. [place] [facility] spironolact 2020-0 Yes 25mg Take 25 mg Univers one 25 mg 6-08 by mouth ity of tablet 00:00: daily. [address] spironolact 2020-0 Yes 25mg Take 25 mg Univers one 25 mg 6-08 by mouth ity of tablet 00:00: daily. [address] spironolact 1-0 Yes 25mg Take 25 mg Univers one 25 mg 6-08 by mouth ity of tablet 00:00: daily. [place] [facility] spironolact 2020-0 Yes 25mg Take 25 mg Univers one 25 mg 6-08 by mouth ity of tablet 00:00: daily. [place] [facility] spironolact 2020-0 Yes 25mg Take 25 mg Univers one 25 mg 6-08 by mouth ity of tablet 00:00: daily. [place] [facility] spironolact 2020-0 Yes 25mg Take 25 mg Univers one 25 mg 6-08 by mouth ity of tablet 00:00: daily. [place] [facility] spironolact 2020-0 Yes 25mg Take 25 mg Univers one 25 mg 6-08 by mouth ity of tablet 00:00: daily. [place] [facility] spironolact 2020-0 Yes 25mg Take 25 mg Univers one 25 mg 6-08 by mouth ity of tablet 00:00: daily. [place] [facility] spironolact 2020-0 Yes 25mg Take 25 mg Univers one 25 mg 6-08 by mouth ity of tablet 00:00: daily. [place] [facility] spironolact 2020-0 Yes 25mg Take 25 mg Univers one 25 mg 6-08 by mouth ity of tablet 00:00: daily. [place] [facility] spironolact 2020-0 Yes 25mg Take 25 mg Univers one 25 mg 6-08 by mouth ity of tablet 00:00: daily. [place] [facility] spironolact 2020-0 Yes 25mg Take 25 mg [facility] one 25 mg 6-08 by mouth ity of tablet 00:00: daily. [place] [facility] spironolact 2020-0 Yes 25mg Take 25 mg Univers one 25 mg 6-08 by mouth ity of tablet 00:00: daily. [place] [facility] spironolact 2020-0 Yes 25mg Take 25 mg [facility] one 25 mg 6-08 by mouth ity of tablet 00:00: daily. [place] [facility] spironolact 2020-0 Yes 25mg Take 25 mg [place] one 6-08 by mouth. [facility] (ALDACTONE) 00:00: of 25 MG 00 Medicin tablet e spironolact 2020-0 Yes 25mg Take 25 mg [facility] one 6-08 by mouth. [place] (ALDACTONE) 00:00: of 25 MG 00 Medicin tablet e neomycin-po 2021-0 Yes [id number] 3[drp] Place 3 [facility] lymyxin-hyd 4-14 Drops in ity of rocortisone 00:00: left ear 4 [place] 3.5-,000- 00 (four) Medica l 1 times Branch mg/mL-unit/ daily. mL-% otic susp neomycin-po 2021-0 Yes [id number] 3[drp] Place 3 [facility] lymyxin-hyd 4-14 Drops in ity of rocortisone 00:00: left ear 4 [place] 3.5-,000- 00 (four) Medica l 1 times Branch mg/mL-unit/ daily. mL-% otic susp neomycin-po 2021-0 Yes [id number] 3[drp] Place 3 [facility] lymyxin-hyd 4-14 Drops in ity of rocortisone 00:00: left ear 4 [place] 3.5-,000- 00 (four) Medica l 1 times Branch mg/mL-unit/ daily. mL-% otic susp neomycin-po 2021-0 Yes [id number] 3[drp] Place 3 [facility] lymyxin-hyd 4-14 Drops in ity of rocortisone 00:00: left ear 4 [place] 3.5-,000- 00 (four) Medica l 1 times Branch mg/mL-unit/ daily. mL-% otic susp neomycin-po 2021-0 Yes [id number] 3[drp] Place 3 [facility] lymyxin-hyd 4-14 Drops in ity of rocortisone 00:00: left ear 4 [place] 3.5-10,000- 00 (four) Medica l 1 times Branch mg/mL-unit/ daily. mL-% otic susp neomycin-po 2021-0 Yes [id number] 3[drp] Place 3 [facility] lymyxin-hyd 4-14 Drops in ity of rocortisone 00:00: left ear 4 [place] 3.5-10,000- 00 (four) Medica l 1 times Branch mg/mL-unit/ daily. mL-% otic susp neomycin-po 2021-0 Yes [id number] 3[drp] Place 3 [facility] lymyxin-hyd 4-14 Drops in ity of rocortisone 00:00: left ear 4 [place] 3.5-10,000- 00 (four) Medica l 1 times Branch mg/mL-unit/ daily. mL-% otic susp neomycin-po 2021-0 Yes [id number] 3[drp] Place 3 [facility] lymyxin-hyd 4-14 Drops in ity of rocortisone 00:00: left ear 4 [place] 3.5-10,000- 00 (four) Medica l 1 times Branch mg/mL-unit/ daily. mL-% otic susp neomycin-po 2021-0 Yes [id number] 3[drp] Place 3 [facility] lymyxin-hyd 4-14 Drops in ity of rocortisone 00:00: left ear 4 [place] 3.5-10,000- 00 (four) Medica l 1 times Branch mg/mL-unit/ daily. mL-% otic susp neomycin-po 2021-0 Yes [id number] 3[drp] Place 3 [facility] lymyxin-hyd 4-14 Drops in ity of rocortisone 00:00: left ear 4 [place] 3.5-10,000- 00 (four) Medica l 1 times Branch mg/mL-unit/ daily. mL-% otic susp neomycin-po 2021-0 Yes [id number] 3[drp] Place 3 [facility] lymyxin-hyd 4-14 Drops in ity of rocortisone 00:00: left ear 4 [place] 3.5-10,000- 00 (four) Medica l 1 times Branch mg/mL-unit/ daily. mL-% otic susp neomycin-po 2021-0 Yes [id number] 3[drp] Place 3 [facility] lymyxin-hyd 4-14 Drops in ity of rocortisone 00:00: left ear 4 [place] 3.5-10,000- 00 (four) Medica l 1 times Branch mg/mL-unit/ daily. mL-% otic susp neomycin-po 2021-0 Yes [id number] 3[drp] Place 3 [facility] lymyxin-hyd 4-14 Drops in ity of rocortisone 00:00: left ear 4 [place] 3.5-10,000- 00 (four) Medica l 1 times Branch mg/mL-unit/ daily. mL-% otic susp neomycin-po 2021-0 Yes [id number] 3[drp] Place 3 [facility] lymyxin-hyd 4-14 Drops in ity of rocortisone 00:00: left ear 4 [place] 3.5-10,000- 00 (four) Medica l 1 times Branch mg/mL-unit/ daily. mL-% otic susp neomycin-po 2021-0 Yes [id number] 3[drp] Place 3 [facility] lymyxin-hyd 4-14 Drops in ity of rocortisone 00:00: left ear 4 [place] 3.5-10,000- 00 (four) Medica l 1 times Branch mg/mL-unit/ daily. mL-% otic susp neomycin-po 2021-0 Yes [id number] 3[drp] Place 3 [facility] lymyxin-hyd 4-14 Drops in ity of rocortisone 00:00: left ear 4 [place] 3.5-10000- (four) Medica l 1 times Branch mg/mL-unit/ daily. mL-% otic susp neomycin-po 2021-0 Yes [id number] 3[drp] Place 3 [facility] lymyxin-hyd 4-14 Drops in ity of rocortisone 00:00: left ear 4 [place] 3.5-000 00 (four) Medica l 1 times Branch mg/mL-unit/ daily. mL-% otic susp neomycin-po 2021-0 Yes [id number] 3[drp] Place 3 [facility] lymyxin-hyd 4-14 Drops in ity of rocortisone 00:00: left ear 4 [place] 3.5-000 (four) Medica l 1 times Branch mg/mL-unit/ daily. mL-% otic susp neomycin-po 2021-0 Yes [id number] 3[drp] Place 3 [facility] lymyxin-hyd 4-14 Drops in ity of rocortisone 00:00: left ear 4 [place] 3.5-,000- 00 (four) Medica l 1 times Branch mg/mL-unit/ daily. mL-% otic susp neomycin-po 2021-0 Yes [id number] 3[drp] Place 3 [facility] lymyxin-hyd 4-14 Drops in ity of rocortisone 00:00: left ear 4 [place] 3.5-000- 00 (four) Medica l 1 times Branch mg/mL-unit/ daily. mL-% otic susp neomycin-po 2021-0 Yes [id number] 3[drp] Place 3 [facility] lymyxin-hyd 4-14 Drops in ity of rocortisone 00:00: left ear 4 [place] 3.5-10,000- 00 (four) Medica l 1 times Branch mg/mL-unit/ daily. mL-% otic susp neomycin-po 2021-0 Yes [id number] 3[drp] Place 3 [facility] lymyxin-hyd 4-14 Drops in ity of rocortisone 00:00: left ear 4 [place] 3.5-10000- (four) Medica l 1 times Branch mg/mL-unit/ daily. mL-% otic susp neomycin-po 2021-0 Yes [id number] 3[drp] Place 3 [facility] lymyxin-hyd 4-14 Drops in ity of rocortisone 00:00: left ear 4 [place] 3.5-000 (four) Medica l 1 times Branch mg/mL-unit/ daily. mL-% otic susp neomycin-po 2021-0 Yes [id number] 3[drp] Place 3 [facility] lymyxin-hyd 4-14 Drops in ity of rocortisone 00:00: left ear 4 [place] 3.5-000 (four) Medica l 1 times Branch mg/mL-unit/ daily. mL-% otic susp neomycin-po 2021-0 Yes [id number] 3[drp] Place 3 [facility] lymyxin-hyd 4-14 Drops in ity of rocortisone 00:00: left ear 4 [place] 3.5-000 (four) Medica l 1 times Branch mg/mL-unit/ daily. mL-% otic susp neomycin-po 2021-0 Yes [id number] 3[drp] Place 3 [facility] lymyxin-hyd 4-14 Drops in ity of rocortisone 00:00: left ear 4 [place] 3.5-10,000 (four) Medica l 1 times Branch mg/mL-unit/ daily. mL-% otic susp neomycin-po 2021-0 Yes [id number] 3[drp] Place 3 [facility] lymyxin-hyd 4-14 Drops in ity of rocortisone 00:00: left ear 4 [place] 3.5-10,000- 00 (four) Medica l 1 times Branch mg/mL-unit/ daily. mL-% otic susp neomycin-po 2021-0 Yes [id number] 3[drp] Place 3 [facility] lymyxin-hyd 4-14 Drops in ity of rocortisone 00:00: left ear 4 [place] 3.5-,000- 00 (four) Medica l 1 times Branch mg/mL-unit/ daily. mL-% otic susp neomycin-po 2021-0 Yes [id number] 3[drp] Place 3 [facility] lymyxin-hyd 4-14 Drops in ity of rocortisone 00:00: left ear 4 [place] 3.5-000 (four) Medica l 1 times Branch mg/mL-unit/ daily. mL-% otic susp neomycin-po 2021-0 Yes [id number] 3[drp] Place 3 [facility] lymyxin-hyd 4-14 Drops in ity of rocortisone 00:00: left ear 4 [place] 3.5- (four) Medica l 1 times Branch mg/mL-unit/ daily. mL-% otic susp neomycin-po 2021-0 Yes [id number] 3[drp] Place 3 [facility] lymyxin-hyd 4-14 Drops in ity of rocortisone 00:00: left ear 4 [place] 3.5-,000 (four) Medica l 1 times Branch mg/mL-unit/ daily. mL-% otic susp neomycin-po 2021-0 Yes [id number] 3[drp] Place 3 [facility] lymyxin-hyd 4-14 Drops in ity of rocortisone 00:00: left ear 4 [place] 3.5-10,000 00 (four) Medica l 1 times Branch mg/mL-unit/ daily. mL-% otic susp neomycin-po 2021-0 Yes [id number] 3[drp] Place 3 [facility] lymyxin-hyd 4-14 Drops in ity of rocortisone 00:00: left ear 4 [place] 3.5-10,000- (four) Medica l 1 times Branch mg/mL-unit/ daily. mL-% otic susp neomycin-po 2021-0 Yes [id number] 3[drp] Place 3 [facility] lymyxin-hyd 4-14 Drops in ity of rocortisone 00:00: left ear 4 [place] 3.5-000- 00 (four) Medica l 1 times Branch mg/mL-unit/ daily. mL-% otic susp neomycin-po 2020-0 Yes [id number] 3[drp] Place 3 [facility] lymyxin-hyd 4-14 Drops in ity of rocortisone 00:00: left ear 4 [place] 3.5- (four) Medica l 1 times Branch mg/mL-unit/ daily. mL-% otic susp neomycin-po 2020-0 Yes [id number] 3[drp] Place 3 [facility] lymyxin-hyd 4-14 Drops in ity of rocortisone 00:00: left ear 4 [place] 3.5- (four) Medica l 1 times Branch mg/mL-unit/ daily. mL-% otic susp neomycin-po 2020-0 Yes [id number] 3[drp] Place 3 [facility] lymyxin-hyd 4-14 Drops in ity of rocortisone 00:00: left ear 4 [place] 3.5-000 (four) Medica l 1 times Branch mg/mL-unit/ daily. mL-% otic susp Neomycin-Po 2020-0 Yes 3[drp] Place 3 [facility] lymyxin-[facility] 4-14 Drops in [place] [id number] 00:00: ear(s). of SUSP Medicin e Neomycin-Po 2020-0 Yes 3[drp] Place 3 [facility] lymyxin-HC 4-14 Drops in [place] [id number] 00:00: ear(s). of SUSP 00 Medicin e HYDROcodone Yes chronic 1{tbl} Take 1 [facility] [...] left ear daily. mL-% otic susp neomycin-po 2021- No [id number] 3[drp] Place 3 [facility] lymyxin-hyd 4-14 12-21 Drops in ity of rocortisone 00:00: 00:00 left ear 4 [place] 3.5-10,000- 00 :00 (four) Medica l 1 times Branch mg/mL-unit/ daily. mL-% otic susp neomycin-po 2021- No [id number] 3[drp] Place 3 [facility] lymyxin-hyd 4-14 12-21 Drops in ity of rocortisone 00:00: 00:00 left ear 4 [place] 3.5-10,000- 00 :00 (four) Medica l 1 times Branch mg/mL-unit/ daily. mL-% otic susp insulin NPH Yes Type 2 ADMINISTER [facility] and regular 3-09 diabetes 100 UNITS ity of human 70-30 00:00: mellitus UNDER THE [place] (HUMULIN 00 with SKIN EVERY Medic al [...] mcg DsDv 00 EVERY DAY [facility] [place] TRELEGY 2020-1 Yes INHALE 1 Univer [facility] ELLIPTA 2-24 PUFF BY ity of 100-62.5-25 00:00: MOUTH [place] mcg DsDv 00 EVERY DAY [facility] [place] TRELEGY 2020- Yes INHALE 1 Univer s ELLIPTA 2-24 PUFF BY ity of 100-62.5-25 00:00: MOUTH [place] mcg DsDv 00 EVERY DAY [facility] [place] TRELEGY 2020- Yes INHALE 1 Univer s ELLIPTA 2-24 PUFF BY ity of 100-62.5-25 00:00: MOUTH [place] mcg DsDv 00 EVERY DAY [facility] [place] TRELEGY 2020- Yes INHALE 1 Univer s ELLIPTA 2-24 PUFF BY ity of 100-62.5-25 00:00: MOUTH [place] mcg DsDv 00 EVERY DAY [facility] [place] TRELEGY 2020- Yes INHALE 1 Univer s ELLIPTA 2-24 PUFF BY ity of 100-62.5-25 00:00: MOUTH [place] mcg DsDv 00 EVERY DAY [facility] [place] TRELEGY 2020- Yes INHALE 1 Univer s ELLIPTA 2-24 PUFF BY ity of 100-62.5-25 00:00: MOUTH [place] mcg DsDv 00 EVERY DAY [facility] [place] TRELEGY 2020- Yes INHALE 1 Univer s ELLIPTA 2-24 PUFF BY ity of 100-62.5-25 00:00: MOUTH [place] mcg DsDv 00 EVERY DAY [facility] [place] TRELEGY 2020-1 Yes INHALE 1 Univer s ELLIPTA 2-24 PUFF BY ity of 100-62.5-25 00:00: MOUTH [place] mcg DsDv 00 EVERY DAY Medica l Branch TRELEGY 2020-1 Yes INHALE 1 Univer s ELLIPTA 2-24 PUFF BY ity of 100-62.5-25 00:00: MOUTH [place] mcg DsDv 00 EVERY DAY [facility] [place] TRELEGY 2020-1 Yes INHALE 1 Univer s [...] 00 EVERY DAY Medica l Branch ipratropium 2020-1 Yes Univer s 0.02 [...] by mouth ity of 00:00: at bedtime [place] 00 as needed. Medical Branch zolpidem 10 2019-11 Yes 10mg Take 10 mg [facility] mg tablet 2-14 by mouth ity of 00:00: at bedtime [place] 00 as needed. Medical Branch zolpidem 10 2019-11 Yes 10mg Take 10 mg [facility] mg tablet 2-14 by mouth ity of 00:00: at bedtime [place] 00 as needed. Medical Branch zolpidem 10 2019-11 Yes 10mg Take 10 mg [facility] mg tablet 2-14 by mouth ity of 00:00: at bedtime [place] 00 as needed. Medical Branch zolpidem 10 2019-11 Yes 10mg Take 10 mg [facility] mg tablet 2-14 by mouth ity of 00:00: at bedtime [place] 00 as needed. Medical Branch zolpidem 10 2019-11 Yes 10mg Take 10 mg [facility] mg tablet 2-14 by mouth ity of 00:00: at bedtime [place] 00 as needed. Medical Branch zolpidem 10 2019-11 Yes 10mg Take 10 mg [facility] mg tablet 2-14 by mouth ity of 00:00: at bedtime [place] 00 as needed. Medical Branch zolpidem 10 2019-11 Yes 10mg Take 10 mg [facility] mg tablet 2-14 by mouth ity of 00:00: at bedtime [place] 00 as needed. Medical Branch zolpidem 10 2019-11 Yes 10mg Take 10 mg [facility] mg tablet 2-14 by mouth ity of 00:00: at bedtime [place] 00 as needed. Medical Branch zolpidem 10 [...] by mouth ity of 00:00: at bedtime [place] 00 as needed. Medical Branch zolpidem 10 [...] by mouth ity of 00:00: at bedtime [place] 00 as needed. Medical Branch zolpidem 10 [...] meals. Diclofenac 2019-11 Yes Morbid Apply to U nivers Sodium [...] vers tablet 1-12 D ity of 00:00: [place] [facility] MOTEGRITY 2020- Yes TK 1 T PO Uni vers tablet 1-12 D ity of 00:00: [place] [facility] MOTEGRITY 2020- Yes TK 1 T PO Uni vers tablet 1-12 D ity of 00:00: [place] [facility] MOTEGRITY 2019- Yes TK 1 T PO Uni vers tablet 1-12 D ity of 00:00: [place] 00 Medical Branch MOTEGRITY 2020- Yes TK 1 T PO Uni vers tablet 1-12 D ity of 00:00: [place] [facility] MOTEGRITY 2020- Yes TK 1 T PO Uni vers tablet 1-12 D ity of 00:00: [place] 00 Medical Branch MOTEGRITY 2020- Yes TK 1 T PO Uni vers tablet 1-12 D ity of 00:00: [place] 00 Medical Branch MOTEGRITY 2020- Yes TK 1 T PO Uni vers tablet 1-12 D ity of 00:00: [place] 00 Medical [facility] MOTEGRITY 2020- Yes TK 1 T PO Uni vers tablet 1-12 D ity of 00:00: [place] [facility] MOTEGRITY 2020- Yes TK 1 T PO Uni vers tablet 1-12 D ity of 00:00: [place] 00 Medical Branch MOTEGRITY 2020- Yes TK 1 T PO Uni vers tablet 1-12 D ity of 00:00: [place] 00 Medical Branch MOTEGRITY 2020- Yes TK 1 T PO Uni vers tablet 1-12 D ity of 00:00: [place] 00 Medical [facility] MOTEGRITY 2020- Yes TK 1 T PO Uni vers tablet 1-12 D ity of 00:00: [place] 00 Medical Branch MOTEGRITY 2020- Yes TK 1 T PO Uni vers tablet 1-12 D ity of 00:00: [place] 00 Medical Branch MOTEGRITY 2020- Yes TK 1 T PO Uni vers tablet 1-12 D ity of 00:00: [place] 00 [facility] MOTEGRITY 2020- Yes TK 1 T PO Uni vers tablet 1-12 D ity of 00:00: [place] [facility] MOTEGRITY 2020- Yes TK 1 T PO Uni vers tablet 1-12 D ity of 00:00: [place] [facility] MOTEGRITY 2020- Yes TK 1 T PO Uni vers tablet 1-12 D ity of 00:00: [place] [facility] MOTEGRITY 2020- Yes TK 1 T PO Uni vers tablet 1-12 D ity of 00:00: [place] [facility] MOTEGRITY 2020- Yes TK 1 T PO Uni vers tablet 1-12 D ity of 00:00: [place] [facility] MOTEGRITY 2020- Yes TK 1 T PO Uni vers tablet 1-12 D ity of 00:00: [place] [facility] MOTEGRITY 2020- Yes TK 1 T PO Uni vers tablet 1-12 D ity of 00:00: [place] [facility] MOTEGRITY 2020- Yes TK 1 T PO Uni vers tablet 1-12 D ity of 00:00: [place] [facility] MOTEGRITY 2020- Yes TK 1 T PO Uni vers tablet 1-12 D ity of 00:00: [place] 00 [facility] MOTEGRITY 2020- Yes TK 1 T PO Uni vers tablet 1-12 D ity of 00:00: [place] 00 [facility] MOTEGRITY 2020- Yes TK 1 T PO Uni vers tablet 1-12 D ity of 00:00: [place] [facility] MOTEGRITY 2020- Yes TK 1 T PO Uni vers tablet 1-12 D ity of 00:00: [place] 00 [facility] MOTEGRITY 2020- Yes TK 1 T PO Uni vers tablet 1-12 D ity of 00:00: [place] 00 [facility] MOTEGRITY 2020- Yes TK 1 T PO Uni vers tablet 1-12 D ity of 00:00: [place] 00 [facility] MOTEGRITY 2020- Yes TK 1 T PO Uni vers tablet 1-12 D ity of 00:00: [place] 00 [facility] MOTEGRITY 2020- Yes TK 1 T PO [...] vers tablet 1-12 D ity of 00:00: [place] [facility] Branch MOTEGRITY 2020- Yes TK 1 T PO Uni vers tablet 1-12 D ity of 00:00: Medical Branch MOTEGRITY 2019-11 Yes TK 1 T PO Uni vers tablet 1-12 D ity of 00:00: [facility] Branch gabapentin 2020- Yes Chronic 600mg Take 1 U nivers 600 mg 1-11 bilateral tablet by ity of tablet 00:00: [place] back mouth 3 [place] pain with (three) Medical bilateral times Branch sciatica daily. ondansetron 2019-11 Yes TK 2 TS PO [facility] 4 mg tablet 1-04 Q 12 H ity of 00:00: [facility] Branch ondansetron 2020- Yes as needed. [facility] 4 mg tablet 1-04 ity of 00:00: [facility] ondansetron 2020- Yes as needed. [facility] 4 mg tablet 1-04 ity of 00:00: [facility] ondansetron 2020- Yes as needed. [facility] 4 mg tablet 1-04 ity of 00:00: [facility] ondansetron 2020- Yes as needed. Univers 4 mg tablet 1-04 ity of 00:00: [facility] ondansetron 2020- Yes as needed. [facility] 4 mg tablet 1-04 ity of 00:00: [place] 00 Medical Branch ondansetron 2020-1 Yes as needed. [facility] 4 mg tablet 1-04 ity of 00:00: [place] 00 Medical Branch ondansetron 2020-1 Yes as needed. [facility] 4 mg tablet 1-04 ity of 00:00: [place] 00 Medical Branch ondansetron 2020-1 Yes as needed. [facility] 4 mg tablet 1-04 ity of 00:00: [place] 00 Medical Branch ondansetron 2020-1 Yes as needed. [facility] 4 mg tablet 1-04 ity of 00:00: [place] 00 Medical Branch ondansetron 2020-1 Yes as needed. [facility] 4 mg tablet 1-04 ity of 00:00: [place] 00 Medical Branch ondansetron 2020-1 Yes as needed. [facility] 4 mg tablet 1-04 ity of 00:00: 00 Medical Branch ondansetron 2020-1 Yes as needed. [facility] 4 mg tablet 1-04 ity of 00:00: 00 Medical Branch ondansetron 2020-1 Yes as needed. [facility] 4 mg tablet 1-04 ity of 00:00: [place] 00 Medical Branch ondansetron 2020-1 Yes as [...] of 00:00: [place] 00 Medical Branch ondansetron 2020-1 Yes as needed. [facility] 4 mg tablet 1-04 ity of 00:00: [place] 00 Medical Branch ondansetron 2020-1 Yes as needed. [facility] 4 mg tablet 1-04 ity of 00:00: [place] 00 Medical Branch ondansetron 2020-1 Yes as needed. [facility] 4 mg tablet 1-04 ity of 00:00: [place] 00 Medical Branch ondansetron 2020-1 Yes as needed. [facility] 4 mg tablet 1-04 ity of 00:00: [place] 00 Medical Branch ondansetron 2020-1 Yes as needed. [facility] 4 mg tablet 1-04 ity of 00:00: [place] 00 Medical Branch ondansetron 2020-1 Yes as needed. [facility] 4 mg tablet 1-04 ity of 00:00: [place] 00 Medical Branch ondansetron 2020-1 Yes as needed. [facility] 4 mg tablet 1-04 ity of 00:00: [place] 00 Medical Branch ondansetron 2020-1 Yes as needed. [facility] 4 mg tablet 1-04 ity of 00:00: [place] 00 Medical Branch ondansetron 2020-1 Yes as needed. [facility] 4 mg tablet 1-04 ity of 00:00: [place] 00 Medical Branch ondansetron 2020-1 Yes as needed. [facility] 4 mg tablet 1-04 ity of 00:00: [place] 00 Medical Branch ondansetron 2020-1 Yes as needed. [facility] 4 mg tablet 1-04 ity of 00:00: [place] 00 Medical Branch ondansetron 2020-1 Yes as needed. [facility] 4 mg tablet 1-04 ity of 00:00: [place] 00 Medical Branch ondansetron 2020-1 Yes as needed. [facility] 4 mg tablet 1-04 ity of 00:00: [place] 00 Medical Branch ondansetron 2020-1 Yes as needed. [facility] 4 mg tablet 1-04 ity of 00:00: [place] 00 Medical Branch ondansetron 2020-1 Yes as needed. [facility] 4 mg tablet 1-04 ity of 00:00: [place] 00 Medical Branch ondansetron 2020-1 Yes as needed. [facility] 4 mg tablet 1-04 ity of 00:00: 00 Medical Branch ondansetron 2020-1 Yes as needed. [facility] 4 mg tablet 1-04 ity of 00:00: [place] 00 Medical Branch ondansetron 2020-1 Yes as needed. [facility] 4 mg tablet 1-04 ity of 00:00: [place] 00 Medical Branch ondansetron 2020-1 Yes as needed. [facility] 4 mg tablet 1-04 ity of 00:00: [place] 00 Medical Branch ondansetron 2020-1 Yes as needed. [facility] 4 mg tablet 1-04 ity of 00:00: [place] 00 Medical Branch ondansetron 2020-1 Yes as needed. [facility] 4 mg tablet 1-04 ity of 00:00: [place] 00 Medical Branch ondansetron 2020-1 Yes as needed. [facility] 4 mg tablet 1-04 ity of 00:00: [place] 00 Medical Branch diclofenac 2020-1 Yes Morbid 75mg Take 1 Uni vers 75 mg EC 0-08 obesity tablet by ity of tablet 00:00: with body mouth 2 [place] 00 mass index (two) Medical of 50 or times Branch higher daily with meals. diclofenac 2019-1 Yes [id number] 75mg Take 1 [facility] 75 mg EC 0-08 tablet by ity of tablet 00:00: mouth 2 (two) Medical times Branch daily with meals. diclofenac 2019- Yes [id number] 75mg Take 1 [facility] 75 mg EC 0-08 tablet by ity of tablet 00:00: mouth 2 (two) Medical times Branch daily with meals. diclofenac 2019- Yes [id number] 75mg Take 1 [facility] 75 mg EC 0-08 tablet by ity of tablet 00:00: mouth 2 (two) Medical times Branch daily with meals. diclofenac 2019- Yes [id number] 75mg Take 1 [facility] 75 mg EC 0-08 tablet by ity of tablet 00:00: mouth 2 (two) Medical times Branch daily with meals. diclofenac 2019- Yes [id number] 75mg Take 1 [facility] 75 mg EC 0-08 tablet by ity of tablet 00:00: mouth 2 (two) Medical times Branch daily with meals. diclofenac 2019- Yes [id number] 75mg Take 1 [facility] 75 mg EC 0-08 tablet by ity of tablet 00:00: mouth 2 (two) Medical times Branch daily with meals. diclofenac 2019- Yes [id number] 75mg Take 1 [facility] 75 mg EC 0-08 tablet by ity of tablet 00:00: mouth 2 (two) Medical times Branch daily with meals. diclofenac 2019- Yes [id number] 75mg Take 1 [facility] 75 mg EC 0-08 tablet by ity of tablet 00:00: mouth 2 (two) Medical times Branch daily with meals. diclofenac 2019-1 Yes [id number] 75mg Take 1 [facility] 75 mg EC 0-08 tablet by ity of tablet 00:00: mouth 2 (two) Medical times Branch daily with meals. diclofenac 2020-1 Yes [id number] 75mg Take 1 [facility] 75 mg EC 0-08 tablet by ity of tablet 00:00: mouth 2 (two) Medical times Branch daily with meals. diclofenac 2020- Yes [id number] 75mg Take 1 [facility] 75 mg EC 0-08 tablet by ity of tablet 00:00: mouth (two) Medical times Branch daily with meals. diclofenac 2019-11 Yes [id number] 75mg Take 1 [facility] 75 mg EC 0-08 tablet by ity of tablet 00:00: mouth (two) Medical times Branch daily with meals. diclofenac 2019-11 Yes [id number] 75mg Take 1 [facility] 75 mg EC 0-08 tablet by ity of tablet 00:00: mouth (two) Medical times Branch daily with meals. diclofenac 2019-11 Yes [id number] 75mg Take 1 [facility] 75 mg EC 0-08 tablet by ity of tablet 00:00: mouth (two) Medical times Branch daily with meals. diclofenac 2019-11 Yes [id number] 75mg Take 1 [facility] 75 mg EC 0-08 tablet by ity of tablet 00:00: mouth (two) Medical times Branch daily with meals. diclofenac 2019-11 Yes [id number] 75mg Take 1 [facility] 75 mg EC 0-08 tablet by ity of tablet 00:00: mouth (two) Medical times Branch daily with meals. diclofenac 2019-11 Yes [id number] 75mg Take 1 [facility] 75 mg EC 0-08 tablet by ity of tablet 00:00: mouth (two) Medical times Branch daily with meals. diclofenac 2019-11 Yes [id number] 75mg Take 1 [facility] 75 mg EC 0-08 tablet by ity of tablet 00:00: mouth (two) Medical times Branch daily with meals. diclofenac 2019-11 Yes [id number] 75mg Take 1 [facility] 75 mg EC 0-08 tablet by ity of tablet 00:00: mouth (two) Medical times Branch daily with meals. diclofenac 2019-11 Yes [id number] 75mg Take 1 [facility] 75 mg EC 0-08 tablet by ity of tablet 00:00: mouth (two) Medical times Branch daily with meals. diclofenac 2019- Yes [id number] 75mg Take 1 [facility] 75 mg EC 0-08 tablet by ity of tablet 00:00: mouth (two) Medical times Branch daily with meals. diclofenac 2019- Yes [id number] 75mg Take 1 [facility] 75 mg EC 0-08 tablet by ity of tablet 00:00: mouth (two) Medical times Branch daily with meals. diclofenac 2019-11- No [id number] 75mg Take 1 [facility] 75 mg EC 0-08 10-25 tablet by ity o f tablet 00:00: 00:00 mouth 2 [place] 00 :00 (two) Medical times Branch daily with meals. diclofenac 2019-11- No [id number] 75mg Take 1 [facility] 75 mg EC [...] i ty of tablet 00:00: n MOUTH 00 THREE Medical TIMES Branch DAILY CLONIDINE 2020-0 Yes Essential TAKE 1 U nivers 0.2 mg 8-06 hypertensio TABLET BY i ty of tablet 00:00: n MOUTH 00 THREE Medical TIMES Branch DAILY CLONIDINE 2020-0 Yes [id number] TAKE 1 Un ally 0.2 mg 8-06 TABLET BY ity of tablet 00:00: MOUTH 00 THREE Medical TIMES Branch DAILY CLONIDINE 2020-0 Yes [id number] TAKE 1 Un ally 0.2 mg 8-06 TABLET BY ity of tablet 00:00: MOUTH 00 THREE Medical TIMES Branch DAILY CLONIDINE 2020-0 Yes [id number] TAKE 1 Un ally 0.2 mg 8-06 TABLET BY ity of tablet 00:00: MOUTH 00 THREE Medical TIMES Branch DAILY CLONIDINE 2020-0 Yes [id number] TAKE 1 Un ally 0.2 mg 8-06 TABLET BY ity of tablet 00:00: MOUTH 00 THREE Medical TIMES Branch DAILY CLONIDINE 2020-0 Yes [id number] TAKE 1 Un ally 0.2 mg 8-06 TABLET BY ity of tablet 00:00: MOUTH 00 THREE Medical TIMES Branch DAILY CLONIDINE 2020-0 Yes [id number] TAKE 1 Un ally 0.2 mg 8-06 TABLET BY ity of tablet 00:00: MOUTH 00 THREE Medical TIMES Branch DAILY CLONIDINE 2020-0 Yes [id number] TAKE 1 [facility] 0.2 mg 8-06 TABLET BY ity of tablet 00:00: MOUTH 00 THREE Medical TIMES Branch DAILY CLONIDINE 2020-0 Yes [id number] TAKE 1 Un ally 0.2 mg 8-06 TABLET BY ity of tablet 00:00: MOUTH THREE Medical TIMES Branch DAILY CLONIDINE 2020-0 Yes [id number] TAKE 1 Un ally 0.2 mg 8-06 TABLET BY ity of tablet 00:00: MOUTH THREE Medical TIMES Branch DAILY CLONIDINE 2020-0 Yes [id number] TAKE 1 Un ally 0.2 mg 8-06 TABLET BY ity of tablet 00:00: MOUTH THREE Medical TIMES Branch DAILY CLONIDINE 2020-0 Yes [id number] TAKE 1 Un ally 0.2 mg 8-06 TABLET BY ity of tablet 00:00: MOUTH THREE Medical TIMES Branch DAILY CLONIDINE 2020-0 Yes [id number] TAKE 1 Un ally 0.2 mg 8-06 TABLET BY ity of tablet 00:00: MOUTH THREE Medical TIMES Branch DAILY CLONIDINE 2020-0 Yes [id number] TAKE 1 [facility] 0.2 mg 8-06 TABLET BY [facility] tablet 00:00: MOUTH THREE Medical TIMES Branch DAILY CLONIDINE 2020-0 Yes [id number] TAKE 1 [facility] 0.2 mg 8-06 TABLET BY [facility]y of tablet 00:00: MOUTH THREE Medical TIMES Branch DAILY CLONIDINE 2020-0 Yes [id number] TAKE 1 [facility] 0.2 mg 8-06 TABLET BY [facility]y of tablet 00:00: MOUTH THREE Medical TIMES Branch DAILY CLONIDINE 2020-0 Yes [id number] TAKE 1 [facility] 0.2 mg 8-06 TABLET BY [facility]y of tablet 00:00: MOUTH THREE Medical TIMES Branch DAILY CLONIDINE 2020-0 Yes [id number] TAKE 1 [facility] 0.2 mg 8-06 TABLET BY [facility]y of tablet 00:00: MOUTH THREE Medical TIMES Branch DAILY CLONIDINE 2020-0 Yes [id number] TAKE 1 [facility] 0.2 mg 8-06 TABLET BY [facility] of tablet 00:00: MOUTH THREE Medical TIMES Branch DAILY CLONIDINE 2020-0 Yes [id number] TAKE 1 [facility] 0.2 mg 8-06 TABLET BY [facility]y of tablet 00:00: MOUTH THREE Medical TIMES Branch DAILY CLONIDINE 2020-0 Yes [id number] TAKE 1 [facility] 0.2 mg 8-06 TABLET BY [facility]y of tablet 00:00: MOUTH THREE Medical TIMES Branch DAILY CLONIDINE 2020-0 Yes [id number] TAKE 1 [facility] 0.2 mg 8-06 TABLET BY [facility] of tablet 00:00: MOUTH THREE Medical TIMES Branch DAILY CLONIDINE 2020-0 Yes [id number] TAKE 1 [facility] 0.2 mg 8-06 TABLET BY [facility]y of tablet 00:00: MOUTH THREE Medical TIMES Branch DAILY CLONIDINE 2020-0 Yes [id number] TAKE 1 [facility] 0.2 mg 8-06 TABLET BY ity of tablet 00:00: MOUTH THREE Medical TIMES Branch DAILY CLONIDINE 2020-0 Yes [id number] TAKE 1 [facility] 0.2 mg 8-06 TABLET BY ity of tablet 00:00: MOUTH THREE Medical TIMES Branch DAILY CLONIDINE 2020-0 Yes [id number] TAKE 1 [facility] 0.2 mg 8-06 TABLET BY ity of tablet 00:00: THREE Medical TIMES Branch DAILY CLONIDINE 2020-0 Yes [id number] TAKE 1 [facility] 0.2 mg 8-06 TABLET BY [facility] of tablet 00:00: THREE Medical TIMES Branch DAILY CLONIDINE 2020-0 Yes [id number] TAKE 1 [facility] 0.2 mg 8-06 TABLET BY [facility] of tablet 00:00: MOUTH THREE Medical TIMES Branch DAILY CLONIDINE 2020-0 Yes [id number] TAKE 1 [facility] 0.2 mg 8-06 TABLET BY [facility]y of tablet 00:00: MOUTH THREE Medical TIMES Branch DAILY CLONIDINE 2020-0 Yes [id number] TAKE 1 [facility] 0.2 mg 8-06 TABLET BY [facility] of tablet 00:00: THREE Medical TIMES Branch DAILY CLONIDINE 2020-0 Yes [id number] TAKE 1 [facility] 0.2 mg 8-06 TABLET BY [facility] of tablet 00:00: MOUTH THREE Medical TIMES Branch DAILY CLONIDINE 2020-0 Yes [id number] TAKE 1 [facility] 0.2 mg 8-06 TABLET BY [facility] of tablet 00:00: MOUTH THREE Medical TIMES Branch DAILY CLONIDINE 2020-0 Yes [id number] TAKE 1 [facility] 0.2 mg 8-06 TABLET BY [facility] of tablet 00:00: MOUTH THREE Medical TIMES Branch DAILY CLONIDINE 2020-0 Yes [id number] TAKE 1 [facility] 0.2 mg 8-06 TABLET BY [facility] of tablet 00:00: MOUTH THREE Medical TIMES Branch DAILY CLONIDINE 2020-0 2021- No [id number] TAKE 1 [facility] 0.2 mg 06-06 TABLET BY ity of tablet 00:00: 00:00 MOUTH [place] 00 :00 THREE Medical TIMES Branch DAILY CLONIDINE 2020-0 2022- No [id number] TAKE 1 [facility]ivers 0.2 mg 06-06 TABLET BY ity of tablet 00:00: 00:00 MOUTH [place] 00 :00 THREE Medical TIMES Branch DAILY mesalamine 2020-0 [...] mcg capsule - BID ity of 00:00: [place] 00 Medical Branch AMITIZA 24 2020-0 Yes TK 1 C PO [facility] mcg capsule - BID ity of 00:00: [place] 00 Medical Branch AMITIZA 24 2020-0 Yes TK 1 C PO [facility] mcg capsule - BID ity of 00:00: [place] 00 Medical Branch AMITIZA 24 2020-0 Yes TK 1 C PO [facility] mcg capsule 7- BID ity of 00:00: [place] 00 Medical Branch AMITIZA 24 2020-0 Yes TK 1 C PO [facility] mcg capsule - BID ity of 00:00: [place] 00 Medical Branch AMITIZA 24 2020-0 Yes TK 1 C PO [facility] mcg capsule - BID ity of 00:00: [place] 00 Medical Branch AMITIZA 24 2020-0 Yes TK 1 C PO [facility] mcg capsule - BID ity of 00:00: [place] [facility] AMITIZA 24 2020-0 Yes TK 1 C PO [facility] mcg capsule - BID ity of 00:00: [place] [facility] AMITIZA 24 2019-0 Yes TK 1 C PO [facility] mcg capsule - BID ity of 00:00: [place] [facility] AMITIZA 24 2020-0 Yes TK 1 C PO [facility] mcg capsule - BID ity of 00:00: [place] [facility] AMITIZA 24 2019-0 Yes TK 1 C PO [facility] mcg capsule 05-06 BID ity of 00:00: [place] [facility] AMITIZA 24 2019-0 Yes TK 1 C PO [facility] mcg capsule 05-06 BID ity of 00:00: [place] [facility] AMITIZA 24 2019-0 Yes TK 1 C PO [facility] mcg capsule 05-06 BID ity of 00:00: [place] [facility] AMITIZA 24 2019-0 Yes TK 1 C PO [facility] mcg capsule - BID ity of 00:00: [place] [facility] AMITIZA 24 2019-0 Yes TK 1 C PO [facility] mcg capsule - BID ity of 00:00: [place] [facility] AMITIZA 24 2019-0 Yes TK 1 C PO [facility] mcg capsule 05-06 BID ity of 00:00: [place] [facility] AMITIZA 24 2020-0 Yes TK 1 C PO [facility] mcg capsule - BID ity of 00:00: [place] [facility] AMITIZA 24 2020-0 Yes TK 1 C PO [facility] mcg capsule - BID ity of 00:00: [place] [facility] AMITIZA 24 2020-0 Yes TK 1 C PO [facility] mcg capsule - BID ity of 00:00: [place] [facility] AMITIZA 24 2020-0 Yes TK 1 C PO [facility] mcg capsule - BID ity of 00:00: [place] [facility] AMITIZA 24 2019-0 Yes TK 1 C PO [facility] mcg capsule - BID ity of 00:00: [place] [facility] AMITIZA 24 2020-0 Yes TK 1 C PO [facility] mcg capsule - BID ity of 00:00: [place] [facility] AMITIZA 24 2020-0 Yes TK 1 C PO [facility] mcg capsule - BID ity of 00:00: [place] [facility] AMITIZA 24 2019-0 Yes TK 1 C PO [facility] mcg capsule - BID ity of 00:00: [place] [facility] AMITIZA 24 2020-0 Yes TK 1 C PO [facility] mcg capsule 05-06 BID ity of 00:00: [place] [facility] AMITIZA 24 2019-0 Yes TK 1 C PO [facility] mcg capsule 05-06 BID ity of 00:00: [place] [facility] AMITIZA 24 2019-0 Yes TK 1 C PO [facility] mcg capsule 05-06 BID ity of 00:00: [place] [facility] AMITIZA 24 2019-0 Yes TK 1 C PO [facility] mcg capsule 05-06 BID ity of 00:00: [place] [facility] AMITIZA 24 2019-0 Yes TK 1 C PO [facility] mcg capsule 05-06 BID ity of 00:00: [place] [facility] AMITIZA 24 2019-0 Yes TK 1 C PO [facility] mcg capsule 05-06 BID ity of 00:00: [place] [facility] AMITIZA 24 2019-0 Yes TK 1 C PO [facility] mcg capsule 05-06 BID ity of 00:00: [place] [facility] AMITIZA 24 2019-0 Yes TK 1 C PO [facility] mcg capsule 05-06 BID ity of 00:00: [place] [facility] AMITIZA 24 2019-0 Yes TK 1 C PO [facility] mcg capsule 05-06 BID ity of 00:00: [place] [facility] AMITIZA 24 2020-0 Yes TK 1 C PO [facility] mcg capsule 05-06 BID ity of 00:00: [place] [facility] AMITIZA 24 2020-0 Yes TK 1 C PO [facility] mcg capsule - BID ity of 00:00: [place] 00 Medical Branch AMITIZA 24 2019-0 Yes TK 1 C PO [facility] mcg capsule - BID ity of 00:00: [place] 00 Medical Branch AMITIZA 24 2020-0 Yes TK 1 C PO Un [facility] mcg capsule - BID ity of 00:00: [place] [facility] AMITIZA 24 2020-0 Yes TK 1 C PO Un [facility] mcg capsule 05-06 BID ity of 00:00: [place] 00 Medical Branch AMITIZA 24 2020-0 Yes TK 1 C PO Un [facility] mcg capsule -06 BID ity of 00:00: [place] 00 Medical Branch AMITIZA 24 2020-0 Yes TK 1 C PO [facility] mcg capsule 06 BID ity of 00:00: [place] 00 Medical Branch XIFAXAN 550 2020-0 Yes Univer s mg tablet 5-14 ity of 00:00: [place] [...] tablet 5-14 ity of 00:00: Medical Branch XIFAXAN 550 2020-0 Yes as needed. [facility] mg tablet 5-14 ity of 00:00: Medical Branch XIFAXAN 550 2020-0 Yes as needed. [facility] mg tablet 5-14 ity of 00:00: Medical Branch XIFAXAN 550 2020-0 Yes as needed. [facility] mg tablet 5-14 ity of 00:00: Medical Branch XIFAXAN 550 2020-0 Yes as needed. [facility] mg tablet 5-14 ity of 00:00: Medical Branch XIFAXAN 550 2020-0 Yes as needed. [facility] mg tablet 5-14 ity of 00:00: Medical Branch XIFAXAN 550 2020-0 Yes as needed. [facility] mg tablet 5-14 ity of 00:00: Medical Branch XIFAXAN 550 2020-0 Yes as needed. [facility] mg tablet 5-14 ity of 00:00: [place] [facility] XIFAXAN 550 2020-0 Yes as needed. [facility] mg tablet 5-14 ity of 00:00: [place] [facility] insulin 2020-0 Yes Uncontrolle Take [...] by ity of tablet 00:00: mouth 2 [place] 00 (two) Medical times Branch daily. pantoprazol 2018-11 Yes 40mg Take 1 [facility] e 40 mg EC 1-21 tablet by ity of tablet 00:00: mouth 2 [place] 00 (two) Medical times Branch daily. pantoprazol 2018-11 Yes 40mg Take 1 [facility] e 40 mg EC 1-21 tablet by ity of tablet 00:00: mouth 2 [place] (two) Medical times Branch daily. pantoprazol 2018-11 Yes 40mg Take 1 [facility] e 40 mg EC 1-21 tablet by ity of tablet 00:00: mouth 2 [place] (two) Medical times Branch daily. pantoprazol 2018-11 Yes 40mg Take 1 [facility] e 40 mg EC 1-21 tablet by ity of tablet 00:00: mouth 2 [place] (two) Medical times Branch daily. allopurinol Yes [...] at [place] 14 bedtime. Medical Branch nitroglycer 2019-[address] 0[address]4 U nivers in 8-28 mg under ity of (NITROSTAT) 14:53: the tongue [place] 0.4 mg 14 every 5 Medical sublingual (five) Branch tablet minutes as needed for Chest pain. allopurinol 2019-0 Yes 100mg Take 100 [facility] (ZYLOPRIM) 8-28 mg by ity of 100 mg 09:53: mouth [place] tablet 14 daily. Medical Branch ALPRAZolam [id number] Yes 2mg Take 2 mg Un [facility] (XANAX) 8-28 by mouth ity of 0.25 mg 09:53: every 6 [place] tablet 14 (six) Medical hours as Branch needed. allopurinol 2018-0 Yes 100mg Take 100 U [facility] (ZYLOPRIM) 8-28 mg by ity of 100 mg 09:53: mouth [place] tablet 14 daily. Medical Branch ALPRAZolam 0 Yes 2mg Take 2 mg Un [facility] (XANAX) 8-28 by mouth ity of 0.25 mg 09:53: every 6 [place] tablet 14 (six) Medical hours as Branch needed. allopurinol 2019-0 Yes 100mg Take 100 U n[facility] (ZYLOPRIM) 8-28 mg by ity of 100 mg 09:53: mouth [place] tablet 14 daily. Medical Branch ALPRAZolam 0 Yes 2mg Take 2 mg Un [facility] (XANAX) 8-28 by mouth ity of 0.25 mg 09:53: every 6 [place] tablet 14 (six) Medical hours as Branch needed. allopurinol 2019-0 Yes 100mg Take 100 [facility] (ZYLOPRIM) 8-28 mg by ity of 100 mg 09:53: mouth [place] tablet 14 daily. Medical Branch ALPRAZolam [id number] Yes 2mg Take 2 mg Un ally [...] mg 09:53: mouth [place] tablet 14 daily. [facility] Branch ALPRAZolam 2019-0 Yes 2mg Take 2 mg Un ally (XANAX) 8-28 by mouth ity of 0.25 mg 09:53: every 6 [place] tablet 14 (six) Medical hours as Branch needed. allopurinol 2019-0 Yes 100mg Take 100 U nivers (ZYLOPRIM) 8-28 mg by ity of 100 mg 09:53: mouth [place] tablet 14 daily. [facility] Branch ALPRAZolam 2019-0 Yes 2mg Take 2 mg Un ally (XANAX) 8-28 by mouth ity of 0.25 mg 09:53: every 6 [place] tablet 14 (six) Medical hours as Branch needed. allopurinol 2019-0 Yes 100mg Take 100 U nivers (ZYLOPRIM) 8-28 mg by ity of 100 mg 09:53: mouth [place] tablet 14 daily. [facility] Branch ALPRAZolam 2019-0 Yes 2mg Take 2 mg Un ally (XANAX) 8-28 by mouth ity of 0.25 mg 09:53: every 6 [place] tablet 14 (six) Medical hours as Branch needed. allopurinol 2019-0 Yes 100mg Take 100 U nivers (ZYLOPRIM) 8-28 mg by ity of 100 mg 09:53: mouth [place] tablet 14 daily. [facility] Branch ALPRAZolam 2019-0 Yes 2mg Take 2 mg Un ally (XANAX) 8-28 by mouth ity of 0.25 mg 09:53: every 6 [place] tablet 14 (six) Medical hours as Branch needed. allopurinol 2019-0 Yes 100mg Take 100 U nivers (ZYLOPRIM) 8-28 mg by ity of 100 mg 09:53: mouth [place] tablet 14 daily. [facility] Branch ALPRAZolam 2019-0 Yes 2mg Take [...] mg 09:53: mouth [place] tablet 14 daily. [facility] Branch ALPRAZolam 2019-0 Yes 2mg Take [...] mg 09:53: mouth [place] tablet 14 daily. [facility] Branch ALPRAZolam 2019-0 Yes 2mg Take [...] mg 09:53: mouth [place] tablet 14 daily. [facility] Branch ALPRAZolam 2019-0 Yes 2mg Take 2 mg Un [facility] (XANAX) 8-28 by mouth ity of 0.25 mg 09:53: every 6 [place] tablet 14 (six) Medical hours as Branch needed. allopurinol 2019-0 Yes 100mg Take 100 U nivers (ZYLOPRIM) 8-28 mg by ity of 100 mg 09:53: mouth [place] tablet 14 daily. [facility] Branch ALPRAZolam [id number] Yes 2mg Take 2 mg Un ally (XANAX) 8-28 by mouth ity of 0.25 mg 09:53: every 6 [place] tablet 14 (six) Medical hours as Branch needed. allopurinol [id number] Yes 100mg Take 100 U nivers (ZYLOPRIM) 8-28 mg by ity of 100 mg 09:53: mouth [place] tablet 14 daily. [facility] Branch ALPRAZolam [id number] Yes 2mg Take 2 mg Un ally (XANAX) 8-28 by mouth ity of 0.25 mg 09:53: every 6 [place] tablet 14 (six) Medical hours as Branch needed. allopurinol 2019-0 Yes 100mg Take 100 U nivers (ZYLOPRIM) 8-28 mg by ity of 100 mg 09:53: mouth [place] tablet 14 daily. [facility] Branch ALPRAZolam [id number] Yes 2mg Take 2 mg Un ally (XANAX) 8-28 by mouth ity of 0.25 mg 09:53: every 6 [place] tablet 14 (six) Medical hours as Branch needed. allopurinol 2019-0 Yes 100mg Take 100 U nivers (ZYLOPRIM) 8-28 mg by ity of 100 mg 09:53: mouth [place] tablet 14 daily. [facility] Branch ALPRAZolam 2019-0 Yes 2mg Take [...] 00 hyperlipide every Medical moncho type evening. [place] atorvastati Yes [id number] 40mg Take 1 [facility] n 40 mg 5-28 tablet by ity of tablet 00:00: mouth [place] 00 every Medical evening. Branch atorvastati Yes [id number] 40mg Take 1 [facility] n 40 mg 5-28 tablet by ity of tablet 00:00: mouth [place] 00 every Medical evening. [place] atorvastati Yes [id number] 40mg Take 1 [facility] n 40 mg 5-28 tablet by ity of tablet 00:00: mouth [place] 00 every Medical evening. Branch atorvastati Yes [id number] 40mg Take 1 [facility] n 40 mg 5-28 tablet by ity of tablet 00:00: mouth [place] 00 every Medical evening. Branch atorvastati Yes [id number] 40mg Take 1 [facility] n 40 mg 5-28 tablet by ity of tablet 00:00: mouth [place] 00 every Medical evening. [place] atorvastati Yes [id number] 40mg Take 1 [facility] n 40 mg 5-28 tablet by ity of tablet 00:00: mouth [place] 00 every Medical evening. [place] atorvastati Yes [id number] 40mg Take 1 [facility] n 40 mg 5-28 tablet by ity of tablet 00:00: mouth [place] 00 every Medical evening. [place] atorvastati 2018-0 Yes [id number] 40mg Take 1 [facility] n 40 mg 5-28 tablet by ity of tablet 00:00: mouth [place] 00 every Medical evening. Branch atorvastati 0 Yes [id number] 40mg Take 1 [facility] n 40 mg 5-28 tablet by ity of tablet 00:00: mouth [place] 00 every Medical evening. Branch atorvastati 0 Yes [id number] 40mg Take 1 [facility] n 40 mg 5-28 tablet by ity of tablet 00:00: mouth [place] 00 every Medical evening. [place] atorvastati Yes [id number] 40mg Take 1 [facility] n 40 mg 5-28 tablet by ity of tablet 00:00: mouth [place] 00 every Medical evening. Branch atorvastati 0 Yes [id number] 40mg Take 1 [facility] n 40 mg 5-28 tablet by ity of tablet 00:00: mouth [place] 00 every Medical evening. [place] atorvastati 0 Yes [id number] 40mg Take 1 [facility] n 40 mg 5-28 tablet by ity of tablet 00:00: mouth [place] 00 every Medical evening. [place] atorvastati Yes [id number] 40mg Take 1 [facility] n 40 mg 5-28 tablet by ity of tablet 00:00: mouth [place] 00 every Medical evening. [place] atorvastati 0 Yes [id number] 40mg Take 1 [facility] n 40 mg 5-28 tablet by ity of tablet 00:00: mouth [place] 00 every Medical evening. [place] atorvastati 0 Yes [id number] 40mg Take 1 [facility] n 40 mg 5-28 tablet by ity of tablet 00:00: mouth [place] 00 every Medical evening. [place] atorvastati 0 Yes [id number] 40mg Take 1 [facility] n 40 mg 5-28 tablet by ity of tablet 00:00: mouth [place] 00 every Medical evening. Branch atorvastati 0 Yes [id number] 40mg Take 1 [facility] n 40 mg 5-28 tablet by ity of tablet 00:00: mouth [place] 00 every Medical evening. [place] atorvastati 0 Yes [id number] 40mg Take 1 [facility] n 40 mg 5-28 tablet by ity of tablet 00:00: mouth [place] 00 every Medical evening. [place] atorvastati 2018-0 Yes [id number] 40mg Take 1 [facility] n 40 mg 5-28 tablet by ity of tablet 00:00: mouth [place] 00 every Medical evening. Branch atorvastati 0 Yes [id number] 40mg Take 1 [facility] n 40 mg 5-28 tablet by ity of tablet 00:00: mouth [place] 00 every Medical evening. [place] atorvastati 0 Yes [id number] 40mg Take 1 [facility] n 40 mg 5-28 tablet by ity of tablet 00:00: mouth [place] 00 every Medical evening. [place] atorvastati Yes [id number] 40mg Take 1 [facility] n 40 mg 5-28 tablet by ity of tablet 00:00: mouth [place] 00 every Medical evening. [place] atorvastati Yes [id number] 40mg Take 1 [facility] n 40 mg 5-28 tablet by ity of tablet 00:00: mouth [place] 00 every Medical evening. [place] atorvastati Yes [id number] 40mg Take 1 [facility] n 40 mg 5-28 tablet by ity of tablet 00:00: mouth [place] 00 every Medical evening. [place] atorvastati Yes [id number] 40mg Take 1 [facility] n 40 mg 5-28 tablet by ity of tablet 00:00: mouth [place] 00 every Medical evening. [place] atorvastati 0 Yes [id number] 40mg Take 1 [facility] n 40 mg 5-28 tablet by ity of tablet 00:00: mouth [place] 00 every Medical evening. [place] atorvastati 0 Yes [id number] 40mg Take 1 [facility] n 40 mg 5-28 tablet by ity of tablet 00:00: mouth [place] 00 every Medical evening. [place] atorvastati 0 Yes [id number] 40mg Take 1 [facility] n 40 mg 5-28 tablet by ity of tablet 00:00: mouth [place] 00 every Medical evening. [place] atorvastati 0 Yes [id number] 40mg Take 1 [facility] n 40 mg 5-28 tablet by ity of tablet 00:00: mouth [place] 00 every Medical evening. [place] atorvastati Yes [id number] 40mg Take 1 [facility] n 40 mg 5-28 tablet by ity of tablet 00:00: mouth [place] 00 every Medical evening. [place] atorvastati Yes [id number] 40mg Take 1 [facility] n 40 mg 5-28 tablet by ity of tablet 00:00: mouth [place] 00 every Medical evening. Branch atorvastati Yes [id number] 40mg Take 1 [facility] n 40 mg 5-28 tablet by ity of tablet 00:00: mouth [place] 00 every Medical evening. Branch atorvastati 2- No [id number] 40mg Take 1 [facility] n 40 mg 5-28 11-21 tablet by ity of tablet 00:00: 00:00 mouth [place] 00 :00 every Medical evening. Branch atorvastati 2021- No [id number] 40mg Take 1 [facility] n 40 mg 5-28 11-21 tablet by ity of tablet 00:00: 00:00 mouth [place] 00 :00 every Medical evening. Branch amLODIPine 2017-11 Yes [...] [place] tablet 00 daily. Medical Branch amLODIPine 2017-11- No 10mg Take 1 Univ ers (NORVASC) 1-28 11-21 tablet by ity of 10 mg 00:00: 00:00 mouth [place] tablet 00 :00 daily. Medical Branch amLODIPine 2017-11- No 10mg Take 1 Univ ers (NORVASC) 1-28 11-21 tablet by ity of 10 mg 00:00: 00:00 mouth [place] tablet 00 :00 daily. Medical Branch Cholecalcif 2017-11 Yes [id number] Take 1 Un ally alayna, 0-01 capsule by ity of Vitamin D3, 00:00: mouth [place] 50,000 unit 00 weekly. Medic al capsule Branch Cholecalcif 2017-11 Yes [id number] Take 1 Un ally alayna, 0-01 capsule by ity of Vitamin D3, 00:00: mouth [place] 50,000 unit 00 weekly. Medic al capsule Branch Cholecalcif 2017-11 Yes [id number] Take 1 Un ally alayna, 0-01 capsule by ity of Vitamin D3, 00:00: mouth [place] 50,000 unit 00 weekly. Medic al capsule Branch Cholecalcif 2017-11 Yes [id number] Take 1 Un ally alayna, 0-01 capsule by ity of Vitamin D3, 00:00: mouth [place] 50,000 unit 00 weekly. Medic al capsule Branch Cholecalcif 2017-11 Yes [id number] Take 1 Un ally alayna, 0-01 capsule by ity of Vitamin D3, 00:00: mouth [place] 50,000 unit 00 weekly. Medic al capsule Branch Cholecalcif 2017-11 Yes [id number] Take 1 Un ally alayna, 0-01 capsule by ity of Vitamin D3, 00:00: mouth [place] 50,000 unit 00 weekly. Medic al capsule Branch Cholecalcif 2017-11 Yes [id number] Take 1 Un ally alayna, 0-01 capsule by ity of Vitamin D3, 00:00: mouth [place] 50,000 unit 00 weekly. Medic al capsule Branch Cholecalcif 2017-11 Yes [id number] Take 1 Un ally alayna, 0-01 capsule by ity of Vitamin D3, 00:00: mouth [place] 50,000 unit 00 weekly. Medic al capsule Branch Cholecalcif 2017-11 Yes [id number] Take 1 Un ally alayna, 0-01 capsule by ity of Vitamin D3, 00:00: mouth [place] 50,000 unit 00 weekly. Medic al capsule Branch Cholecalcif 2017-11 Yes [id number] Take 1 Un ally alayna, 0-01 capsule by ity of Vitamin D3, 00:00: mouth [place] 50,000 unit 00 weekly. Medic al capsule Branch Cholecalcif 2017-11 Yes [id number] Take 1 Un ally alayna, 0-01 capsule by ity of Vitamin D3, 00:00: mouth [place] 50,000 unit 00 weekly. Medic al capsule Branch Cholecalcif 2017-11 Yes [id number] Take 1 Un ally alayna, 0-01 capsule by ity of Vitamin D3, 00:00: mouth [place] 50,000 unit 00 weekly. Medic al capsule Branch Cholecalcif 2017-11 Yes [id number] Take 1 Un ally alayna, 0-01 capsule by ity of Vitamin D3, 00:00: mouth [place] 50,000 unit 00 weekly. Medic al capsule Branch Cholecalcif 2017-11 Yes [id number] Take 1 Un ally alayna, 0-01 capsule by ity of Vitamin D3, 00:00: mouth [place] 50,000 unit 00 weekly. Medic al capsule Branch Cholecalcif 2017-11 Yes [id number] Take 1 Un ally alayna, 0-01 capsule by ity of Vitamin D3, 00:00: mouth [place] 50,000 unit 00 weekly. Medic al capsule Branch Cholecalcif 2017-11 Yes [id number] Take 1 Un ally alayna, 0-01 capsule by ity of Vitamin D3, 00:00: mouth [place] 50,000 unit 00 weekly. Medic al capsule Branch Cholecalcif 2017-11 Yes [id number] Take 1 Un ally alayna, 0-01 capsule by ity of Vitamin D3, 00:00: mouth [place] 50,000 unit 00 weekly. Medic al capsule Branch Cholecalcif 2017-11 Yes [id number] Take 1 Un ally alayna, 0-01 capsule by ity of Vitamin D3, 00:00: mouth [place] 50,000 unit 00 weekly. Medic al capsule Branch Cholecalcif 2017-11 Yes [id number] Take 1 Un ally alayna, 0-01 capsule by ity of Vitamin D3, 00:00: mouth [place] 50,000 unit 00 weekly. Medic al capsule Branch Cholecalcif 2017-11 Yes [id number] Take 1 Un ally alayna, 0-01 capsule by ity of Vitamin D3, 00:00: mouth [place] 50,000 unit 00 weekly. Medic al capsule Branch Cholecalcif 2017-11 Yes [id number] Take 1 Un ally alayna, 0-01 capsule by ity of Vitamin D3, 00:00: mouth [place] 50,000 unit 00 weekly. Medic al capsule Branch Cholecalcif 2017-11 Yes [id number] Take 1 Un ally alayna, 0-01 capsule by ity of Vitamin D3, 00:00: mouth [place] 50,000 unit 00 weekly. Medic al capsule Branch Cholecalcif 2017-11 Yes [id number] Take 1 Un ally alayna, 0-01 capsule by ity of Vitamin D3, 00:00: mouth [place] 50,000 unit 00 weekly. Medic al capsule Branch Cholecalcif 2017-11 Yes [id number] Take 1 Un ally alayna, 0-01 capsule by ity of Vitamin D3, 00:00: mouth [place] 50,000 unit 00 weekly. Medic al capsule Branch Cholecalcif 2017-11 Yes [id number] Take 1 Un ally alayna, 0-01 capsule by ity of Vitamin D3, 00:00: mouth [place] 50,000 unit 00 weekly. Medic al capsule Branch Cholecalcif 2017-11 Yes [id number] Take 1 Un ally alayna, 0-01 capsule by ity of Vitamin D3, 00:00: mouth [place] 50,000 unit 00 weekly. Medic al capsule Branch Cholecalcif 2017-11 Yes [id number] Take 1 Un ally alayna, 0-01 capsule by ity of Vitamin D3, 00:00: mouth [place] 50,000 unit 00 weekly. Medic al capsule Branch Cholecalcif 2017-11 Yes [id number] Take 1 Un ally alayna, 0-01 capsule by ity of Vitamin D3, 00:00: mouth [place] 50,000 unit 00 weekly. Medic al capsule Branch Cholecalcif 2017-11 Yes [id number] Take 1 Un ally alayna, 0-01 capsule by ity of Vitamin D3, 00:00: mouth [place] 50,000 unit 00 weekly. Medic al capsule Branch Cholecalcif 2017-11 Yes [id number] Take 1 Un ally alayna, 0-01 capsule by ity of Vitamin D3, 00:00: mouth [place] 50,000 unit 00 weekly. Medic al capsule Branch Cholecalcif 2017-11 Yes [id number] Take 1 Un ally alayna, 0-01 capsule by ity of Vitamin D3, 00:00: mouth [place] 50,000 unit 00 weekly. Medic al capsule Branch Cholecalcif 2017-11 Yes [id number] Take 1 Un ally alayna, 0-01 capsule by ity of Vitamin D3, 00:00: mouth [place] 50,000 unit 00 weekly. Medic al capsule Branch Cholecalcif 2017-11 Yes [id number] Take 1 Un ally alayna, 0-01 capsule by ity of Vitamin D3, 00:00: mouth [place] 50,000 unit 00 weekly. Medic al capsule Branch Cholecalcif 2017-11 Yes [id number] Take 1 Un ally alayna, 0-01 capsule by ity of Vitamin D3, 00:00: mouth [place] 50,000 unit 00 weekly. Medic al capsule Branch Cholecalcif 2017-11 Yes [id number] Take 1 Un ally alayna, 0-01 capsule by ity of Vitamin D3, 00:00: mouth [place] 50,000 unit 00 weekly. Medic al capsule Branch Cholecalcif 2017-11 Yes [id number] Take 1 Un ally alayna, 0-01 capsule by ity of Vitamin D3, 00:00: mouth [place] 50,000 unit 00 weekly. Medic al capsule Branch Cholecalcif 2017-11 Yes [id number] Take 1 Un ally alayna, 0-01 capsule by ity of Vitamin D3, 00:00: mouth [place] 50,000 unit 00 weekly. Medic al capsule Branch Cholecalcif 2017-11 Yes [id number] Take 1 Un ally alayna, 0-01 capsule by ity of Vitamin D3, 00:00: mouth [place] 50,000 unit 00 weekly. Medic al capsule Branch Cholecalcif 2017-11 Yes [id number] Take 1 Un ally alayna, 0-01 capsule by ity of Vitamin D3, 00:00: mouth [place] 50,000 unit 00 weekly. Medic al capsule Branch Cholecalcif 2018-1 Yes [id number] Take 1 Un ally alayna, 0-01 capsule by ity of Vitamin D3, 00:00: mouth [place] 50,000 unit 00 weekly. Medic al capsule Branch Lactated 2018-0 No 1,000 mL, [place] radha Ringers IV 04-04 Rate: 40 l 1,000 mL 19:14: ml/hr, [place] 00 Infuse over: 25 hr, Route: IV, Dosing Weight 141.364 kg, Total Volume: 1,000, Start date: 04/04/18 14:14:00 CDT, Duration: 30 day, Stop date: 05/04/18 14:13:00 CDT, 2.56, m2 Lactated 2018-0 No 1,000 mL, [place] radha Ringers IV 04-04 Rate: 40 l 1,000 mL 19:14: ml/hr, [place] 00 Infuse over: 25 hr, Route: IV, Dosing Weight 141.364 kg, Total Volume: 1,000, Start date: 04/04/18 14:14:00 CDT, Duration: 30 day, Stop date: 05/04/18 14:13:00 CDT, 2.56, m2 Lactated 2018-0 No 1,000 mL, [place] radha Ringers IV 04-04 Rate: 40 l 1,000 mL 19:14: ml/hr, [place] 00 Infuse over: 25 hr, Route: IV, [...] Rate: 40 l 1,000 mL 19:14: ml/hr, [place] 00 Infuse over: 25 hr, Route: IV, Dosing Weight 141.364 kg, Total Volume: 1,000, Start date: 04/04/18 14:14:00 CDT, Duration: 30 day, Stop date: 05/04/18 14:13:00 CDT, 2.56, m2 Lactated 2018-0 No 1,000 mL, [place] radha Ringers IV 04-04 Rate: 40 l 1,000 mL 19:14: ml/hr, [place] 00 Infuse over: 25 hr, Route: IV, Dosing Weight 141.364 kg, Total Volume: 1,000, Start date: 04/04/18 14:14:00 CDT, Duration: 30 day, Stop date: 05/04/18 14:13:00 CDT, 2.56, m2 Humulin 2018-0 Yes 60 unit, [facility]ori a 70/30 5-15 SUB-Q, l 18:44: QPM, 0 [place] 00 Refill(s) Humulin 2018-0 Yes 60 unit, [facility] a 70/30 5-15 SUB-Q, l 18:44: QPM, 0 [place] 00 Refill(s) Humulin 2018-0 Yes 60 unit, [facility] a 70/30 5-15 SUB-Q, l 18:44: QPM, 0 [place] 00 Refill(s) Humulin 2018-0 Yes 60 unit, [facility] a 70/30 5-15 SUB-Q, l 18:44: QPM, 0 [place] 00 Refill(s) Humulin 2018-0 Yes 60 unit, [facility] a 70/30 5-15 SUB-Q, l 18:44: QPM, 0 [place] 00 Refill(s) Humulin 2018-0 Yes 60 unit, [facility] a 70/30 5-15 SUB-Q, l 18:44: QPM, 0 [place] 00 Refill(s) Humulin 2018-0 Yes 60 unit, [facility] a 70/30 5-15 SUB-Q, l 18:44: QPM, 0 [place] 00 Refill(s) Humulin 2018-0 Yes 70 unit, [facility] a 70/30 5-15 SUB-Q, l 18:43: QAM, 0 [place] 00 Refill(s) Humulin 2018-0 Yes 70 unit, [facility] a 70/30 5-15 SUB-Q, l 18:43: QAM, 0 [place] 00 Refill(s) Humulin 2018-0 Yes 70 unit, [facility] a 70/30 5-15 SUB-Q, l 18:43: QAM, 0 [place] 00 Refill(s) Humulin 2017-0 Yes 70 unit, [facility] a 70/30 5-15 SUB-Q, l 18:43: QAM, 0 [place] 00 Refill(s) Humulin 2017-0 Yes 70 unit, [facility] a 70/30 5-15 SUB-Q, l 18:43: QAM, 0 [place] 00 Refill(s) Humulin 2017-0 Yes 70 unit, [facility] a 70/30 5-15 SUB-Q, l 18:43: QAM, 0 [place] 00 Refill(s) Humulin 2017-0 Yes 70 unit, [facility] a 70/30 5-15 SUB-Q, l 18:43: QAM, 0 [place] 00 Refill(s) albuterol 2015-11 Yes 2{puff} Inhale [...] = 1 Mem oria 2 MG Oral 1-07 tab, PO, l Tablet 16:37: TID, 0 [place] [Xanax] 00 Refill(s) Alprazolam Yes 2 mg = 1 [facility] 2 MG Oral 1-07 tab, PO, l Tablet 16:37: TID, 0 [place] [Xanax] 00 Refill(s) Alprazolam 2016 Yes 2 mg = 1 [facility] 2 MG Oral 1-07 tab, PO, l Tablet 16:37: TID, 0 [place] [Xanax] 00 Refill(s) Alprazolam 2016 Yes 2 mg = 1 [facility] 2 MG Oral 1-07 tab, PO, l Tablet 16:37: TID, 0 [place] [Xanax] 00 Refill(s) Alprazolam 2016 Yes 2 mg = 1 [facility] 2 MG Oral 1-07 tab, PO, l Tablet 16:37: TID, 0 [place] [Xanax] 00 Refill(s) Alprazolam 2016 Yes 2 mg = 1 [facility] 2 MG Oral 1-07 tab, PO, l Tablet 16:37: TID, 0 [place] [Xanax] 00 Refill(s) Alprazolam 2016 Yes 2 mg = 1 Mem oria [...] mg = 1 [facility] in 0.4 MG -07 tab, SL, l Sublingual 16:25: Q5Min, PRN [place] Tablet 00 Chest [Nitrostat] Pain, # 100 tab, 0 Refill(s) Nitroglycer Yes 0.4 mg = 1 [facility] in 0.4 MG -07 tab, SL, l Sublingual 16:25: Q5Min, PRN [place] Tablet 00 Chest [Nitrostat] Pain, # 100 tab, 0 Refill(s) Nitroglycer Yes 0.4 mg = 1 [facility] in 0.4 MG -07 tab, SL, l Sublingual 16:25: Q5Min, PRN [place] Tablet 00 Chest [Nitrostat] Pain, # 100 tab, 0 Refill(s) Nitroglycer Yes 0.4 mg = 1 [facility] in 0.4 MG -07 tab, SL, l Sublingual 16:25: Q5Min, PRN [place] Tablet 00 Chest [Nitrostat] Pain, # 100 tab, 0 Refill(s) Nitroglycer Yes 0.4 mg = 1 [facility] in 0.4 MG 1-07 tab, SL, l Sublingual 16:25: Q5Min, PRN [place] Tablet 00 Chest [Nitrostat] Pain, # 100 tab, 0 Refill(s) Promethazin Yes 5 mL, PO, M emoria e VC with 1-07 PRN, 0 l Codeine 16:21: Refill(s) [place] nn 00 Promethazin 2016-0 Yes 5 mL, PO, M emoria e VC with 1-07 PRN, 0 l Codeine 16:21: Refill(s) [place] nn 00 Promethazin 2016-0 Yes 5 mL, PO, M emoria e VC with 1-07 PRN, 0 l Codeine 16:21: Refill(s) [place] nn 00 Promethazin 2016-0 Yes 5 mL, PO, M emoria e VC with 1-07 PRN, 0 l Codeine 16:21: Refill(s) [place] nn 00 Promethazin 2016-0 Yes 5 mL, PO, M emoria e VC with 1-07 PRN, 0 l Codeine 16:21: Refill(s) [place] nn 00 Promethazin 0 Yes 5 mL, PO, M emoria e VC with 1-07 PRN, 0 l Codeine 16:21: Refill(s) [place] nn Promethazin 0 Yes 5 mL, PO, M emoria e VC with 1-07 PRN, 0 l Codeine 16:21: Refill(s) [place] nn Acetaminoph Yes 1 tab, PO, Memoria en 325 MG / 1-07 BID, 0 l Hydrocodone 16:19: Refill(s) [place] Bitartrate 00 10 MG Oral Tablet [[place] 10/325] Acetaminoph Yes 1 tab, PO, Memoria en 325 MG / 1-07 BID, 0 l Hydrocodone 16:19: Refill(s) [place] Bitartrate 00 10 MG Oral Tablet [[place] 10/325] Acetaminoph Yes 1 tab, PO, Memoria en 325 MG / 1-07 BID, 0 l Hydrocodone 16:19: Refill(s) [place] Bitartrate 00 10 MG Oral Tablet [[place] 10/325] Acetaminoph Yes 1 tab, PO, Memoria en 325 MG / 1-07 BID, 0 l Hydrocodone 16:19: Refill(s) [place] Bitartrate 00 10 MG Oral Tablet [[place] 10/325] Acetaminoph Yes 1 tab, PO, Memoria en 325 MG / 11-07 BID, 0 l Hydrocodone 16:19: Refill(s) [place] Bitartrate 00 10 MG Oral Tablet [[place] 10/325] Acetaminoph Yes 1 tab, PO, Memoria en 325 MG / 11-07 BID, 0 l Hydrocodone 16:19: Refill(s) [place] Bitartrate 00 10 MG Oral Tablet [[place] 10/325] Acetaminoph Yes 1 tab, PO, Memoria en 325 MG / 11-07 BID, 0 l Hydrocodone 16:19: Refill(s) [place] Bitartrate 00 10 MG Oral Tablet [[place] 10/325] tizanidine Yes 4 mg = 1 Mem oria 4 MG Oral 07 cap, PO, l Capsule 16:18: BID, # 90 [place] nn [Zanaflex] 00 cap, 0 Refill(s) Zolpidem Yes 5 mg = 1 Memor ia tartrate 5 - tab, PO, l MG Oral 16:18: Bedtime, 0 [facility] flakita Tablet 00 Refill(s) [Ambien] tizanidine Yes 4 mg = 1 Mem oria 4 MG Oral 07 cap, PO, l Capsule 16:18: BID, # 90 [place] nn [Zanaflex] 00 cap, 0 Refill(s) Zolpidem Yes 5 mg = 1 [facility] ia tartrate 5 -07 tab, PO, l MG Oral 16:18: Bedtime, 0 [place] flakita Tablet 00 Refill(s) [Ambien] tizanidine Yes 4 mg = 1 [facility] 4 MG Oral 07 cap, PO, l Capsule 16:18: BID, # 90 [place] nn [Zanaflex] 00 cap, 0 Refill(s) Zolpidem 0 Yes 5 mg = 1 [facility] ia tartrate 5 -07 tab, PO, l MG Oral 16:18: Bedtime, 0 [place] flakita Tablet 00 Refill(s) [Ambien] tizanidine Yes 4 mg = 1 [facility] 4 MG Oral -07 cap, PO, l Capsule 16:18: BID, # [...] = 1 [facility] 4 MG Oral -07 cap, PO, l Capsule 16:18: BID, # 90 [place] nn [Zanaflex] 00 cap, 0 Refill(s) Zolpidem 2016-0 Yes 5 mg = 1 [facility] ia tartrate 5 -07 tab, PO, l MG Oral 16:18: Bedtime, 0 [place] flakita Tablet 00 Refill(s) [Ambien] tizanidine 2016-0 Yes 4 mg = 1 [facility] 4 MG Oral -07 cap, PO, l Capsule 16:18: BID, # [...] cap, PO, l capsule 16:17: BID, 0 [place] 00 Refill(s) cephalexin 2016-0 Yes 500 mg = 1 M emoria 500 mg oral 1-07 cap, PO, l capsule 16:17: BID, 0 [place] 00 Refill(s) cephalexin 2016-0 Yes 500 mg = 1 M emoria 500 mg oral 1-07 cap, PO, l capsule 16:17: BID, 0 [place] 00 Refill(s) cephalexin 2015-0 Yes 500 mg = 1 M emoria 500 mg oral 1-07 cap, PO, l capsule 16:17: BID, 0 [place] 00 Refill(s) cephalexin 2015-0 Yes 500 mg = 1 M emoria 500 mg oral 1-07 cap, PO, l capsule 16:17: BID, 0 [place] 00 Refill(s) cephalexin 0 Yes 500 mg = 1 M emoria 500 mg oral 1-07 cap, PO, l capsule 16:17: BID, 0 [place] 00 Refill(s) duloxetine Yes 60 mg = [...] PO, l Oral Tablet 16:16: Bedtime, 0 [place] [Lipitor] 00 Refill(s) duloxetine Yes 60 mg [...] n Coated 00 Refill(s) Capsule [Cymbalta] atorvastati 2016-0 Yes 40 mg = 1 M emoria n 40 MG 1-07 tab, PO, l Oral Tablet 16:16: Bedtime, 0 [place] [Lipitor] 00 Refill(s) duloxetine 2015-0 Yes 60 mg = 1 Me moria 60 MG 1-07 cap, PO, l Enteric 16:16: Daily, 0 [place] n Coated 00 Refill(s) Capsule [Cymbalta] atorvastati 2016 Yes 40 mg = 1 M emoria n 40 MG 1-07 tab, PO, l Oral Tablet 16:16: Bedtime, 0 [place] [Lipitor] 00 Refill(s) duloxetine Yes 60 mg = 1 Me moria 60 MG 1-07 cap, PO, l Enteric 16:16: Daily, 0 [place] n Coated 00 Refill(s) Capsule [Cymbalta] atorvastati 0 Yes 40 mg = 1 M emoria n 40 MG 1-07 tab, PO, l Oral Tablet 16:16: Bedtime, 0 [place] [Lipitor] 00 Refill(s) duloxetine Yes 60 mg = 1 Me moria 60 MG 1-07 cap, PO, l Enteric 16:16: Daily, 0 [place] n Coated 00 Refill(s) Capsule [Cymbalta] atorvastati Yes 40 mg = 1 M emoria n 40 MG 1-07 tab, PO, l Oral Tablet 16:16: Bedtime, 0 [place] [Lipitor] 00 Refill(s) promethazin 20160 Yes 25 mg = 1 M emoria e 25 mg 1-07 tab, PO, l oral tablet 16:15: PRN, 0 [place] fl[place] 00 Refill(s) sucralfate 0 Yes 1 gm = 1 [facility] o[facility] 1 g oral 1-07 tab, PO, l tablet 16:15: QID-Before [place] nn 00 Meals, 0 Refill(s) promethazin 0 Yes 25 mg = 1 M emoria e 25 mg 1-07 tab, PO, l oral tablet 16:15: PRN, 0 [place] 00 Refill(s) sucralfate 0 Yes 1 gm = 1 [facility] 1 g oral 1-07 tab, PO, l tablet 16:15: QID-Before [place] nn 00 Meals, 0 Refill(s) promethazin 2016-0 Yes 25 mg = 1 M emoria e 25 mg 1-07 tab, PO, l oral tablet 16:15: PRN, 0 [place] 00 Refill(s) sucralfate 2016-0 Yes 1 gm = 1 [facility] 1 g oral 1-07 tab, PO, l tablet 16:15: QID-Before [place] Meals, 0 Refill(s) promethazin 2016-0 Yes 25 mg = 1 M emoria e 25 mg 1-07 tab, PO, l oral tablet 16:15: PRN, 0 [place] 00 Refill(s) sucralfate 2015-0 Yes 1 gm = 1 [facility] 1 g oral 1-07 tab, PO, l tablet 16:15: QID-Before [place] Meals, 0 Refill(s) promethazin 2015-0 Yes 25 mg = 1 M emoria e 25 mg 1-07 tab, PO, l oral tablet 16:15: PRN, 0 [place] 00 Refill(s) sucralfate 2015-0 Yes 1 gm = 1 [facility] 1 g oral 1-07 tab, PO, l tablet 16:15: QID-Before [place] Meals, 0 Refill(s) promethazin 2015-0 Yes 25 mg = 1 M emoria e 25 mg 1-07 tab, PO, l oral tablet 16:15: PRN, 0 [place] 00 Refill(s) sucralfate 2015-0 Yes 1 gm = 1 [facility] 1 g oral 1-07 tab, PO, l tablet 16:15: QID-Before [place] Meals, 0 Refill(s) promethazin 2015-0 Yes 25 mg = 1 M emoria e 25 mg 1-07 tab, PO, l oral tablet 16:15: PRN, 0 [place] 00 Refill(s) sucralfate 2015-0 Yes 1 gm = 1 [facility] 1 g oral 1-07 tab, PO, l tablet 16:15: QID-Before [place] 00 Meals, 0 Refill(s) Colchicine 2015-0 Yes 0.6 mg = 1 M emoria 0.6 MG Oral 1-07 tab, PO, l Tablet 16:14: PRN, 0 [place] [Colcrys] 00 Refill(s) Colchicine 2016-0 Yes 0.6 mg = 1 M emoria 0.6 MG Oral 1-07 tab, PO, l Tablet 16:14: PRN, 0 [place] [Colcrys] 00 Refill(s) Colchicine 2016-0 Yes 0.6 mg = 1 M emoria 0.6 MG Oral 1-07 tab, PO, l Tablet 16:14: PRN, 0 [place] [Colcrys] 00 Refill(s) Colchicine 2016-0 Yes 0.6 mg = 1 M emoria 0.6 MG Oral 1-07 tab, PO, l Tablet 16:14: PRN, 0 [place] [Colcrys] 00 Refill(s) Colchicine 2016-0 Yes 0.6 mg = 1 M emoria 0.6 MG Oral 1-07 tab, PO, l Tablet 16:14: PRN, 0 [place] [Colcrys] 00 Refill(s) Colchicine 2016-0 Yes 0.6 mg = 1 M emoria 0.6 MG Oral 1-07 tab, PO, l Tablet 16:14: PRN, 0 [place] [Colcrys] 00 Refill(s) Colchicine 2016-0 Yes 0.6 mg = 1 M emoria 0.6 MG Oral 1-07 tab, PO, l Tablet 16:14: PRN, 0 [place] [Colcrys] 00 Refill(s) allopurinol 2016- Yes 300 mg = 1 [facility] 300 mg oral 1-07 tab, PO, l tablet 16:13: Daily, 0 [place] 00 Refill(s) allopurinol 20160 Yes 300 mg = 1 [facility] 300 mg oral 1-07 tab, PO, l tablet 16:13: Daily, 0 [place] 00 Refill(s) allopurinol 2016-0 Yes 300 mg = 1 [facility] 300 mg oral 1-07 tab, PO, l tablet 16:13: Daily, 0 [place] 00 Refill(s) allopurinol 2016-0 Yes 300 mg = 1 [facility] 300 mg oral 1-07 tab, PO, l tablet 16:13: Daily, 0 [place] 00 Refill(s) allopurinol Yes 300 mg = 1 [facility] 300 mg oral 1-07 tab, PO, l tablet 16:13: Daily, 0 Refill(s) allopurinol Yes 300 mg = 1 [facility] 300 mg oral -07 tab, PO, l tablet 16:13: Daily, 0 [place] 00 Refill(s) allopurinol Yes 300 mg = 1 [facility] 300 mg oral -07 tab, PO, l tablet 16:13: Daily, 0 Refill(s) Unknown Yes Refill(s) [facility] Home 1-07 0 l Medication 16:12: [place] 00 Unknown 0 Yes Refill(s) [facility] Home 1-07 0 l Medication 16:12: [place] 00 Unknown Yes Refill(s) [facility] Home 1-07 0 l Medication 16:12: [place] 00 Unknown Yes Refill(s) [facility] Home 1-07 0 l Medication 16:12: [place] 00 Unknown Yes Refill(s) [facility] Home 1-07 0 l Medication 16:12: [place] 00 Unknown 0 Yes Refill(s) [facility] Home 1-07 0 l Medication 16:12: [place] 00 Unknown 0 Yes Refill(s) [facility] Home 1-07 0 l Medication 16:12: pantoprazol Yes 40 mg = 1 M [...] Enteric 16:11: Daily, 0 [place] n Coated Refill(s) Tablet [Protonix] pantoprazol Yes 40 mg = 1 M emoria e 40 MG 1-07 tab, PO, l Enteric 16:11: Daily, 0 [place] n Coated 00 Refill(s) Tablet [Protonix] pantoprazol Yes 40 mg = 1 M emoria e 40 MG -07 tab, PO, l Enteric 16:11: Daily, 0 [place] Coated 00 Refill(s) Tablet [Protonix] pantoprazol Yes 40 mg = 1 M emoria e 40 MG 1-07 tab, PO, l Enteric 16:11: Daily, 0 [place] Coated 00 Refill(s) Tablet [Protonix] Hydralazine Yes 50 mg = 1 M emoria Hydrochlori -07 tab, PO, l de 50 MG 16:10: TID, 0 [place] Oral Tablet 00 Refill(s) Hydralazine Yes 50 [...] l de 50 MG 16:10: TID, 0 [place] Oral Tablet 00 Refill(s) Hydralazine Yes 50 mg = 1 M emoria Hydrochlori -07 tab, PO, l de 50 MG 16:10: TID, 0 [place] Oral Tablet 00 Refill(s) Hydralazine Yes 50 mg = 1 M emoria Hydrochlori -07 tab, PO, l de 50 MG 16:10: TID, 0 [place] Oral Tablet 00 Refill(s) Hydralazine 0 Yes 50 mg = 1 M emoria Hydrochlori -07 tab, PO, l de 50 MG 16:10: TID, 0 [place] Oral Tablet 00 Refill(s) lisinopril Yes 10 mg = 1 Me moria 10 mg oral -07 tab, PO, l tablet 16:09: BID, 0 [place] 00 Refill(s) lisinopril 2016-0 Yes 10 mg = 1 Me moria 10 mg oral 1-07 tab, PO, l tablet 16:09: BID, 0 [place] 00 Refill(s) lisinopril 2016-0 Yes 10 mg = 1 Me moria 10 mg oral 1-07 tab, PO, l tablet 16:09: BID, 0 [place] 00 Refill(s) lisinopril 2016-0 Yes 10 mg = 1 Me moria 10 mg oral -07 tab, PO, l tablet 16:09: BID, 0 [place] 00 Refill(s) lisinopril 2016-0 Yes 10 mg = 1 Me moria 10 mg oral -07 tab, PO, l tablet 16:09: BID, 0 [place] 00 Refill(s) lisinopril 2016-0 Yes 10 mg = 1 Me moria 10 mg oral -07 tab, PO, l tablet 16:09: BID, 0 [place] 00 Refill(s) lisinopril 2016-0 Yes 10 mg = 1 Me moria 10 mg oral -07 tab, PO, l tablet 16:09: BID, 0 [place] 00 Refill(s) Amlodipine 2016-0 Yes 10 mg = 1 Me moria 10 MG Oral -07 tab, PO, l Tablet 16:08: Daily, 0 [place] [Norvasc] 00 Refill(s) Hydrochloro 2016-0 Yes 25 mg, PO, Memoria thiazide 1-07 Daily, 0 l 16:08: Refill(s) [place] 00 Amlodipine 2016-0 Yes 10 mg = 1 Me moria 10 MG Oral -07 tab, PO, l Tablet 16:08: Daily, 0 [place] [Norvasc] 00 Refill(s) Hydrochloro 2016-0 Yes 25 mg, PO, Mem[facility] thiazide 1-07 Daily, 0 l 16:08: Refill(s) [place] Amlodipine 2016-0 Yes 10 mg = 1 Me moria 10 MG Oral 1-07 tab, PO, l Tablet 16:08: Daily, 0 [place] [Norvasc] 00 Refill(s) Hydrochloro 2016-0 Yes 25 mg, PO, Memoria thiazide 1-07 Daily, 0 l 16:08: Refill(s) [place] 00 Amlodipine 2016-0 Yes 10 mg = 1 Me moria 10 MG Oral 1-07 tab, PO, l Tablet 16:08: Daily, 0 [place] [Norvasc] 00 Refill(s) Hydrochloro 2016-0 Yes 25 mg, PO, Mem[facility] thiazide 11-07 Daily, 0 l 16:08: Refill(s) [place] 00 Amlodipine Yes 10 mg = 1 Me moria 10 MG Oral -07 tab, PO, l Tablet 16:08: Daily, 0 [place] [Norvasc] 00 Refill(s) Hydrochloro 2016-0 Yes 25 mg, PO, Memoria thiazide 11-07 Daily, 0 l 16:08: Refill(s) [place] 00 Amlodipine Yes 10 mg = 1 Me moria 10 MG Oral -07 tab, PO, l Tablet 16:08: Daily, 0 [place] [Norvasc] 00 Refill(s) Hydrochloro 2015-0 Yes 25 mg, PO, Memoria thiazide 11-07 Daily, 0 l 16:08: Refill(s) Amlodipine Yes 10 mg = 1 Me moria 10 MG Oral -07 tab, PO, l Tablet 16:08: Daily, 0 [place] [Norvasc] 00 Refill(s) Hydrochloro 0 Yes 25 mg, PO, Memoria thiazide 11-07 Daily, 0 l 16:08: Refill(s) [place] metoprolol Yes 100 mg = 1 M emoria tartrate 1-07 tab, PO, l 100 mg oral 16:07: BID, 0 [place] flakita tablet 00 Refill(s) metoprolol 0 Yes 100 mg = 1 M emoria tartrate 1-07 tab, PO, l 100 mg oral 16:07: BID, 0 [place] flakita tablet 00 Refill(s) metoprolol 0 Yes 100 mg = 1 M emoria tartrate 1-07 tab, PO, l 100 mg oral 16:07: BID, 0 [place] flakita tablet 00 Refill(s) metoprolol 0 Yes 100 mg = 1 M emoria tartrate 1-07 tab, PO, l 100 mg oral 16:07: BID, 0 [place] flakita tablet 00 Refill(s) metoprolol 0 Yes 100 mg = 1 M emoria tartrate 1-07 tab, PO, l 100 mg oral 16:07: BID, 0 [place] flak[place] tablet 00 Refill(s) metoprolol Yes 100 mg = 1 M emoria tartrate - tab, PO, l 100 mg oral 16:07: BID, 0 [place] flakita tablet 00 Refill(s) metoprolol Yes 100 mg = 1 M emoria tartrate 11-07 tab, PO, l 100 mg oral 16:07: BID, 0 [place] flakita tablet 00 Refill(s) albuterol albuterol No albuterol [facility] sulfate 2.5 sulfate 2.5 sulfate Family mg/3 mL mg/3 mL 2.5 mg/3 Pract ic (0.083 %) (0.083 %) mL (0.083 e solution solution %) for for solution nebulizatio nebulizatio for n n nebulizati on albuterol albuterol No albuterol [facility] sulfate HFA sulfate HFA sulfate Family [...] BREATH allopurinol allopurinol No allopurino [facility] 300 mg 300 mg l 300 mg Family tablet TAKE tablet TAKE tablet Practic 1 TABLET BY 1 TABLET BY TAKE 1 e MOUTH TWICE MOUTH TWICE TABLET BY DAILY. DAILY. MOUTH TWICE DAILY. alprazolam alprazolam No alprazolam [facility] 2 mg tablet 2 mg tablet 2 mg F amily TAKE 1 TAKE 1 tablet Practic TABLET BY TABLET BY TAKE 1 e MOUTH THREE MOUTH THREE TABLET BY TIMES DAILY TIMES DAILY MOUTH NEEDED NEEDED THREE FOR ANXIETY FOR ANXIETY TIMES DAILY NEEDED FOR ANXIETY amlodipine amlodipine No amlodipine [facility] 5 mg tablet 5 mg tablet 5 mg F amily TAKE 1 TAKE 1 tablet Practic TABLET BY TABLET BY TAKE 1 e MOUTH EVERY MOUTH EVERY TABLET BY DAY DAY MOUTH EVERY DAY atorvastati atorvastati No atorvastat [facility] n 20 mg n 20 mg [...] DAILY TWICE DAILY clonidine clonidine No clonidine [facility] HCl 0.2 mg HCl 0.2 mg HCl 0.2 mg Family tablet TAKE tablet TAKE tablet Practic 1 TABLET BY 1 TABLET BY TAKE 1 e MOUTH THREE MOUTH THREE TABLET BY TIMES DAILY TIMES DAILY MOUTH THREE TIMES DAILY colchicine colchicine No colchicine [facility] 0.6 mg 0.6 mg 0.6 mg [...] ONSET OF DIARRHEA cyclobenzap cyclobenzap No cyclobenza [facility] rine 10 mg rine 10 mg [...] DAILY diclofenac diclofenac No diclofenac [facility] sodium 75 sodium 75 sodium 75 Family mg mg mg Practic tablet,artem tablet,artem tablet,del e yed release yed release ayed TAKE 1 TAKE 1 release TABLET BY TABLET BY TAKE 1 MOUTH TWICE MOUTH TWICE TABLET BY DAILY WITH DAILY WITH MOUTH MEALS MEALS TWICE DAILY WITH MEALS dicyclomine dicyclomine No dicyclomin [facility] 10 mg 10 mg e 10 mg Family capsule capsule capsule Practi c TAKE 1 TAKE 1 TAKE 1 e CAPSULE BY CAPSULE BY CAPSULE BY MOUTH EVERY MOUTH EVERY MOUTH 8 HOURS 8 HOURS EVERY 8 HOURS gabapentin gabapentin No gabapentin [facility] 600 mg 600 mg 600 mg [...] EVENING hydralazine hydralazine No hydralazin [facility] 100 mg 100 mg e 100 mg Family tablet TAKE tablet TAKE tablet Practic 1 TABLET BY 1 TABLET BY TAKE 1 e MOUTH THREE MOUTH THREE TABLET BY TIMES DAILY TIMES DAILY MOUTH THREE TIMES DAILY hydrochloro hydrochloro No hydrochlor [facility] thiazide thiazide othiazide [place] 12.5 mg 12.5 mg 12.5 mg Practi c capsule capsule capsule e TAKE 1 TAKE 1 TAKE 1 CAPSULE BY CAPSULE BY CAPSULE BY MOUTH DAILY MOUTH DAILY MOUTH DAILY hydrocodone hydrocodone No hydrocodon [facility] 7.5 7.5 e 7.5 [facility] mg-acetamin mg-acetamin mg-acetami Practic ophen 325 [...] MEALS ipratropium ipratropium No ipratropiu [facility] bromide bromide m bromide Fami ly 0.02 % 0.02 % 0.02 % Practic solution solution solution e for for for inhalation inhalation inhalation lisinopril lisinopril No lisinopril [facility] 40 mg 40 mg 40 mg Family tablet TAKE tablet TAKE tablet Pract[facility] 1/2 TABLET 1/2 TABLET TAKE 1/2 e BY MOUTH BY MOUTH TABLET BY TWICE DAILY TWICE DAILY MOUTH TWICE DAILY mesalamine mesalamine No mesalamine [facility] ER 0.375 ER 0.375 ER 0.375 Fam ramses gram gram gram Pract[facility] capsule,ext capsule,ext capsule,ex e ended ended tended release 24 release 24 release 24 hr TAKE 4 hr TAKE 4 hr TAKE 4 CAPSULES BY CAPSULES BY CAPSULES MOUTH DAILY MOUTH DAILY BY MOUTH DAILY metformin metformin No metformin [facility] 1,000 mg 1,000 mg 1,000 mg Fam ramses tablet TAKE tablet TAKE tablet Practic 1 TABLET BY 1 TABLET BY TAKE 1 e MOUTH TWICE MOUTH TWICE TABLET BY DAILY WITH DAILY WITH MOUTH MEALS MEALS TWICE DAILY WITH MEALS metoprolol metoprolol No metoprolol [facility] tartrate tartrate tartrate Fam ramses 100 [...] DAILY TABLET BY MOUTH DAILY [facility] 0.4 mg rin 0.4 mg Family sublingual sublingual sublingual [facility] tablet tablet tablet e PLACE [address] 1 TABLET TABLET TABLET UNDER THE UNDER THE UNDER THE TONGUE TONGUE TONGUE EVERY 5 EVERY 5 EVERY 5 MINUTES MINUTES MINUTES NEEDED FOR NEEDED FOR NEEDED FOR CHEST PAIN. CHEST PAIN. CHEST PAIN. ondansetron ondansetron No ondansetro [facility] HCl 4 mg HCl 4 mg [...] BY MOUTH DAILY prednisone prednisone No prednisone [facility] 10 mg 10 mg 10 mg [...] Immunizations Ordered Filled Immunization Date Status Comments Sourc e Immunization Name Name Influenza Virus 2022-09-21 [facility]pleted [facility] dical Preserv and ABX Branch Free 6 MO-64 YRS Influenza Virus 2022-09-21 Completed [facility], [facility] [place] [facility] Preserv [facility] ABX [facility] Free 6 MO-64 YRS Influenza Virus 2022-09-21 Completed [facility], 00:[facility]00 [place] [facility] Preserv and ABX Branch Free 6 MO-64 YRS Influenza Virus 2022-09-21 Completed [facility], 00:[facility]00 [place] [facility] Preserv and ABX Branch Free 6 MO-64 YRS Influenza Virus 2022-09-21 Completed [facility], 00:[facility]:00 [place] [facility] Preserv and ABX Branch Free 6 MO-64 YRS Influenza Virus 2022-09-21 Completed [facility], [facility]00 [place] [facility] Preserv and ABX Branch Free 6 MO-64 YRS SARS-COV-2 COVID-19 2021-07-11 Completed [facility] rs[facility] of MODERNA VACCINE 00:00:00 [facility] Branch SARS-COV-2 COVID-19 2021-07-11 Completed [facility] rs[facility] of MODERNA VACCINE 00:00:00 [facility] Branch SARS-COV-2 COVID-19 2021-07-11 Completed [facility] rs[facility] of MODERNA VACCINE 00:00:00 [facility] Branch SARS-COV-2 COVID-19 2021-07-11 Completed [facility] rs[facility] of MODERNA VACCINE 00:00:00 [facility] Branch SARS-COV-2 COVID-19 2021-07-11 Completed [facility]ive rsity of MODERNA VACCINE 00:00:[address] [facility] Branch SARS-COV-2 COVID-19 2021-07-11 Completed [facility]ive rsity of MODERNA VACCINE 00:00:00 [facility] Branch SARS-COV-2 COVID-19 2021-07-11 Completed [facility]ive rsity of MODERNA VACCINE 00:00:00 [facility] Branch SARS-COV-2 COVID-19 2021-07-11 Completed [facility]ive rsity of MODERNA VACCINE 00:00:00 [facility] SARS-COV-2 COVID-19 2021-07-11 Completed [facility]ive rsity of MODERNA VACCINE 00:00:00 [facility] SARS-COV-2 COVID-19 2021-07-11 Completed Unive rsity [...] rsity of MODERNA 12+ YRS 00:00:00 [facility] ical VACCINE Branch SARS-COV-2 COVID-19 2020-12-03 Completed Unive rsity of MODERNA 12+ YRS 00:00:00 [place] [facility] SARS-COV-2 COVID-19 2020-12-03 Completed Unive rsity of MODERNA 12+ YRS 00:00:00 [facility] ical VACCINE Branch SARS-COV-2 COVID-19 2020-12-03 Completed Unive rsity of MODERNA 12+ YRS 00:00:00 [facility] ical VACCINE Branch SARS-COV-2 COVID-19 2020-12-03 Completed Unive rsity of MODERNA 12+ YRS 00:00:00 [place] [facility] SARS-COV-2 COVID-19 2020-12-03 Completed Unive rsity of MODERNA 12+ YRS 00:00:00 [facility] ical VACCINE Branch SARS-COV-2 COVID-19 2020-12-03 Completed Unive rsity of MODERNA 12+ YRS 00[facility]00:00 [place] [facility] [facility] ical VACCINE Branch SARS-COV-2 COVID-19 2020-12-03 Completed Unive rsity of MODERNA 12+ YRS 00:00:00 [facility] ical VACCINE Branch Influenza Virus 2020-11-13 Completed Universit y [...] .5 mL 00:00:00 [facility] IM 6+ MO Branch Influenza Virus 2020-11-13 Completed Universit y of Vaccine Quad .5 mL 00:00:00 [facility] IM 6+ MO Branch Influenza Virus 2020-11-13 Completed Universit y of Vaccine Quad .5 mL 00:00:00 [facility] IM 6+ MO Branch Influenza Virus 2020-11-13 Completed Universit y of Vaccine Quad .5 mL 00:00:00 [facility] IM 6+ MO Branch Influenza Virus 2020-11-13 Completed Universit y of Vaccine Quad .5 mL 00:00:00 [facility] IM 6+ MO Branch Influenza Virus 2020-11-13 Completed Universit y of Vaccine Quad .5 mL 00:00:00 [facility] IM 6+ MO Branch Pneumococcal 2016-09-11 Completed University o f Polysaccharide, 00:00:00 [place] [facility] ical PPSV23 (PNEUMOVAX) Branch Influenza Virus 2016-09-11 Completed Universit y of Vaccine (3+ yrs) 00:00:00 [facility] dicar Branch Pneumococcal 2016-09-11 Completed University o f Polysaccharide, 00:00:00 [place] [facility] ical PPSV23 (PNEUMOVAX) Branch Influenza Virus 2016-09-11 Completed Universit y of Vaccine (3+ yrs) 00:00:00 [facility] Branch Pneumococcal 2016-09-11 Completed University o f Polysaccharide, 00:00:00 [place] [facility] ical PPSV23 (PNEUMOVAX) Branch Influenza Virus 2016-09-11 Completed Universit y of Vaccine (3+ yrs) 00:00:00 [facility] dical Branch Pneumococcal 2016-09-11 Completed University o f Polysaccharide, 00:00:00 [place] [facility] ical PPSV23 (PNEUMOVAX) Branch Influenza Virus 2016-09-11 Completed Universit y of Vaccine (3+ yrs) 00:00:00 [facility] dical Branch Pneumococcal 2016-09-11 Completed University o f Polysaccharide, 00:00:00 [place] [facility] ical PPSV23 (PNEUMOVAX) Branch Influenza Virus 2016-09-11 Completed Universit y of Vaccine (3+ yrs) 00:00:00 [facility] Pneumococcal 2016-09-11 Completed University o f Polysaccharide, 00:00:00 [place] [facility] ical PPSV23 (PNEUMOVAX) Branch Influenza Virus 2016-09-11 Completed Universit y of Vaccine (3+ yrs) 00:00:00 [facility] Pneumococcal 2015-04-11 Completed University o f Polysaccharide, 00:00:00 [facility] ical PPSV23 (PNEUMOVAX) Branch Pneumococcal 2015-04-11 Completed University o f Polysaccharide, 00:00:00 [place] [facility] ical PPSV23 (PNEUMOVAX) Branch Pneumococcal 2015-04-11 Completed University o f Polysaccharide, 00:00:00 [place] [facility] ical PPSV23 (PNEUMOVAX) Branch Pneumococcal 2015-04-11 Completed University o f Polysaccharide, 00:00:00 [place] [facility] ical PPSV23 (PNEUMOVAX) Branch Pneumococcal 2015-04-11 Completed University o f Polysaccharide, 00:00:00 [place] [facility] ical PPSV23 (PNEUMOVAX) Branch Pneumococcal 2015-04-11 Completed University o f Polysaccharide, 00:00:00 [place] [facility] ical PPSV23 (PNEUMOVAX) Branch Influenza Virus 2013-09-29 Completed Universit y of Vaccine (3+ yrs) 00:00:00 [facility] Influenza Virus 2013-09-29 Completed Universit y of Vaccine (3+ yrs) 00:00:00 [facility] Influenza Virus 2013-09-29 Completed Universit y of Vaccine (3+ yrs) 00:00:00 [facility] Influenza Virus 2013-09-29 Completed Universit y of Vaccine (3+ yrs) 00:00:00 [facility] Influenza Virus 2013-09-29 Completed Universit y of Vaccine (3+ yrs) 00:00:00 [facility] Flu Trivalent 2013-09-29 Completed University of 00:00:00 [facility] Influenza Virus 2013-09-29 Completed Universit y of Vaccine (3+ yrs) 00:00:00 [facility] Flu Trivalent 2013-09-29 Completed University of 00:00:00 [facility] Influenza Virus 2012-11-25 Completed Universit y of Vaccine (3+ yrs) 00:00:00 [facility] Influenza Virus 2012-11-25 Completed Universit y of Vaccine (3+ yrs) 00:00:00 [facility] Influenza Virus 2012-11-25 Completed Universit y of Vaccine (3+ yrs) 00:00:00 [facility] Influenza Virus 2012-11-25 Completed Universit y of Vaccine (3+ yrs) 00:00:00 [facility] Influenza Virus 2012-11-25 Completed Universit y of Vaccine (3+ yrs) 00:00:00 [facility] Flu Trivalent 2012-11-25 Completed University of 00:00:00 [facility] Influenza Virus 2012-11-25 Completed Universit y of Vaccine (3+ yrs) 00:00:00 [facility] Flu Trivalent 2012-11-25 Completed University of 00:00:00 [facility] Vital Signs Vital Name Observation Time Observation Value Comments Source Systolic blood 2022-10-21 15:09:00 141 mm[Hg] Univer sity of pressure [facility] Diastolic blood 2022-10-21 15:09:00 81 mm[Hg] Unive rsity of pressure [facility] Heart rate 2022-10-21 15:08:00 84 /min Universi ty of [facility] Body height 2022-10-21 15:08:00 160 cm Universi ty of [facility] Body weight 2022-10-21 15:08:00 151.275 kg Universi ty of [facility] BMI 2022-10-21 15:08:00 59.08 kg/m2 Universi ty of [place] [facility] Oxygen saturation in 2022-10-21 15:08:00 95 /min University of Arterial blood by [facility] Pulse oximetry Branch Systolic blood 2022-09-21 15:34:00 151 mm[Hg] Univer sity of pressure [facility] Diastolic blood 2022-09-21 15:34:00 74 mm[Hg] Unive rsity of pressure [facility] Heart rate 2022-09-21 15:33:00 86 /min Universi ty of [place] [facility] [place] Body height 2022-09-21 15:33:00 160 cm Universi ty of [facility] [place] [facility] Body weight 2022-09-21 15:33:00 149.778 kg Universi ty of [facility] BMI 2022-09-21 15:33:00 58.49 kg/m2 Universi ty of [facility] Oxygen saturation in 2022-09-21 15:33:00 92 /min University of Arterial blood by [facility] Pulse oximetry Branch Systolic blood 2022-08-25 14:59:00 121 mm[Hg] Univer sity of pressure [facility] [place] [facility] Diastolic blood 2022-08-25 14:59:00 75 mm[Hg] Unive rsity of pressure [facility] Heart rate 2022-08-25 14:59:00 108 /min Universi ty of [place] [facility] Body temperature 2022-08-25 14:59:00 36.67 Pat Univ ersity of [facility] Branch Body height 2022-08-25 14:59:00 160 cm Universi ty of [facility] [place] [facility] Body weight 2022-08-25 14:59:00 146.512 kg Universi ty of [place] [facility] BMI 2022-08-25 14:59:00 57.22 kg/m2 Universi ty of [facility] Oxygen saturation in 2022-08-25 14:59:00 96 /min University of Arterial blood by [place] [employer] Pulse oximetry Branch Body temperature 2022-06-16 12:58:00 36.33 Pat [facility] Body height 2022-06-16 12:58:00 160 cm [facility] Body weight 2022-06-16 12:58:00 151.32 kg [facility] BMI 2022-06-16 12:58:00 59.09 kg/m2 [facility] Systolic blood 2022-03-18 14:25:00 120 mm[Hg] Univer sity of pressure [facility] Branch Diastolic blood 2022-03-18 14:25:00 70 mm[Hg] Unive rsity of pressure [facility] Heart rate 2022-03-18 14:25:00 78 /min Universi ty of [facility] [place] [facility] Body height 2022-03-18 14:25:00 160 cm [facility]i ty [facility] [place] [facility] Body weight 2022-03-18 14:25:00 150.367 kg [facility]i ty [facility] [place] [facility] BMI 2022-03-18 14:25:00 58.72 kg/m2 Universi ty of [facility] Branch Oxygen saturation in 2022-03-18 14:25:00 95 /min University of Arterial blood by [employer] Pulse oximetry Branch HEIGHT 2022-01-09 09:38:00 160 [...] kg Systolic blood 2021-11-06 19:35:00 132 mm[Hg] [facility] pressure Medicine Diastolic blood 2021-11-06 19:35:00 69 mm[Hg] [facility] Medicine Heart rate 2021-11-06 19:35:00 93 /min [facility] Body temperature 2021-11-06 19:35:00 36 Pat [facility] Respiratory rate 2021-11-06 19:35:00 18 /min [facility] Body height 2021-11-06 19:35:00 160 cm [facility] weight 2021-11-06 19:35:00 151.32 kg [facility] ol[facility] Medicine BMI 2021-11-06 19:35:00 59.09 [facility] Height 2021-08-21 00:00:00 63 [in_i] [facility] Practice BMI (Body Mass 2021-08-21 00:00:00 58.1 kg/m2 [facility] e Family Index) Practice BP Systolic 2021-08-21 00:00:00 131 mm[Hg] [facility] Body Weight 2021-08-21 00:00:00 328 [lb_av] [facility] BP Diastolic 2021-08-21 00:00:00 89 mm[Hg] [facility] Practice Systolic blood 2022-01-09 13:53:00 157 mm[Hg] [facility] Diastolic blood 2022-01-09 13:53:00 89 mm[Hg] [facility] S [facility] Heart rate 2022-01-09 13:53:00 80 /min [facility] Body temperature 2022-01-09 13:53:00 36.33 Pat [facility] Respiratory rate 2022-01-09 13:53:00 19 /min [facility] Oxygen saturation in 2022-01-09 13:53:00 93 /min [facility] Arterial blood by Medical Ce nter Pulse oximetry Body height 2022-01-09 09:38:00 160 cm [facility] Body weight 2022-01-09 09:38:00 151.501 kg [facility] BMI 2022-01-09 09:38:00 59.17 kg/m2 [facility] Systolic (mm Hg) 2018-04-04 19:53:00 [facility] [place] Diastolic (mm Hg) 2018-04-04 19:53:00 Mem orial [place] Respitory Rate 2018-04-04 19:53:00 [facility] [place] Systolic (mm Hg) 2018-04-04 19:41:00 [facility] [place] Diastolic (mm Hg) 2018-04-04 19:41:00 Mem [facility] [place] Respitory Rate 2018-04-04 19:41:00 [facility] [place] Systolic (mm Hg) 2018-04-04 18:06:00 [facility] [place] Diastolic (mm Hg) 2018-04-04 18:06:00 Mem [facility]rial [place] Respitory Rate 2018-04-04 18:06:00 [facility] [place] Weight 2018-04-04 18:04:00 [facility] [place] BMI Calculated 2018-04-04 18:04:00 [facility] [place] Height 2018-03-30 16:54:00 160.02 cm [facility] [place] Respitory Rate 2018-03-21 22:06:00 [facility] [place] Systolic (mm Hg) 2018-03-21 22:06:00 [facility] [place] Diastolic (mm Hg) 2018-03-21 22:06:00 Mem [facility] [place] Respitory Rate 2018-03-21 21:53:00 [facility] [place] Systolic (mm Hg) 2018-03-21 21:53:00 [facility] [place] Diastolic (mm Hg) 2018-03-21 21:53:00 Simona burciaga [place] Systolic (mm Hg) 2018-03-21 19:08:00 [facility] Seay Diastolic (mm Hg) 2018-03-21 19:08:00 Mem [facility] [place] Respitory Rate 2018-03-21 19:08:00 Maynor lopez [place] Height 2018 18:32:00 160.02 cm [facility] [place] Weight 2018 18:32:00 [facility] [place] BMI Calculated 2018 18:32:00 Memnathan al [place] Weight 2015-11-07 16:05:00 [facility] [place] BMI Calculated 2015-11-07 16:05:00 [facility] [place] Height 2015-11-07 16:05:00 [facility] Procedure Date / Time Performing Clinician Source Performed FLU VACC ([id number]), 6 2022-09-21 15:41:00 Randall Sheriff [facility] MO-66 YRS, .5ML, IM, QUAD Medica l Branch (FLUCELVAX) CT HEAD WO CONTRAST 2022-08-28 14:23:13 Sonja Osorio [facility] POCT MOLECULAR FLU 2022-08-25 15:55:00 Sonja Osorio [facility] CBC W/AUTO DIFF WITH 2022-07-28 12:34:00 [facility] Medicine COMPREHENSIVE METABOLIC 2022-07-28 12:34:00 [facility] PANEL Medicine FOLATE 2022-07-28 12:34:00 [facility] HEMOGLOBIN A1C 2022-07-28 12:34:00 [facility] LIPID PANEL 2022-07-28 12:34:00 [facility] PROTIME \\T\\ PTT 2022-07-28 12:34:00 [facility] THYROID PROFILE (T3U - T4 2022-07-28 12:34:00 [facility] T7 - TSH) Medicine URINALYSIS, COMPLETE 2022-07-28 12:34:00 [facility]/REFLEX TO CULTURE Medicine VITAMIN A 2022-07-28 12:34:00 [facility] VITAMIN B1 2022-07-28 12:34:00 [facility] VITAMIN B12 2022-07-28 12:34:00 [facility] VITAMIN D 25 HYDROXY 2022-07-28 12:34:00 [facility] IRON+TIBC+%SAT 2022-07-28 12:34:00 [facility] FERRITIN 2022-07-28 12:34:00 [facility] FL UPPER GI INCLUDING 2022-07-28 11:59:00 [facility], TIBC AND FERRITIN 2022-07-08 12:26:14 [facility] AMB REF TO BARIATRIC 2022-07-08 12:26:14 [facility] 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 [facility] AMB REF TO PHYSICAL MED 2022-07-08 12:26:14 [facility] REHAB [facility] AMB REF TO BARIATRIC 2022-06-16 08:27:29 [facility] POCT-GLUCOSE METER 2022-01-09 13:43:00 Charo Wise [facility] REPORT OF PROCEDURE - 2022-01-09 12:37:11 Charo Wise [facility] ENDOSCOPY URL Center REPORT OF PROCEDURE - 2022-01-09 12:36:24 Charo Wise [facility] ENDOSCOPY URL Center TISSUE EXAM 2022-01-09 11:31:00 Charo Wise [facility] ESOPHAGEAL BALLOON 2022-01-09 10:53:00 Charo Wise [facility] PROVOCATION STUDY Center COLONOSCOPY, WITH 2022-01-09 10:53:00 Charo Wise [facility] POLYPECTOMY Center ESOPHAGOGASTRODUODENOSCOPY 2022-01-09 10:53:00 Charo Wise [facility] , WITH BIOPSY Center POCT-GLUCOSE METER 2022-01-09 09:59:00 Charo Wise [facility] SARS-COV2/RT-PCR ([facility] & 2022-01-09 07:55:00 Charo Wise [facility] REF LABS) Olivia MANOMETRY, ANORECTAL 2021-12-04 09:24:00 Charo Wise [facility] PAIN MANAGEMENT AGREEMENT 2021-02-12 05:01:00 Doctor Unassigned, [facility] & INFORMED CONSENT [facility] Sleeve resection of 2017-09-01 00:00:00 [facility] [place] stomach Laparoscopic adjustable 2013-11-01 06:00:00 [facility] [place] gastric banding<sup>1</sup> Removal of gastric band 2013-11-01 00:00:00 [facility] [place] Abdominal hysterectomy 2011-11-01 00:[facility] [place] Laparoscopic adjustable 2010-11-01 00:00:00 [facility] [place] gastric banding Appendectomy 2009-11-01 00:00:00 [facility] pascal Cholecystectomy 2009-11-01 00:00:00 [facility] pascal Knee joint operation 2006-11-01 06:00:00 [facility] bonnie [place] Shoulder joint operations 2006-11-01 06:00:00 [facility] 1984-11-01 00:00:00 [facility] rmann Knee Surgery [facility] Family Practice Procedure on Shoulder [facility] Fa davida Practice Maintenance of Gastric [place] amily Band Practice Gallbladder Surgery [facility] Fam ly Practice Appendectomy [facility] Family Practice Plan of Care Planned Activity Planned Date Details Comments Source Future Scheduled 2032-01-[address] [facility] 00:00:00 malignant neoplasm of Medica l Center colon (procedure) [code = 909058930] Future Scheduled 2032-01-[address] [facility] Test 00:00:00 malignant neoplasm of Medica l Center colon (procedure) [code = 415764092] Future Scheduled 2032-01-[address] [facility] Test 00:00:00 malignant neoplasm of Medica l Center colon (procedure) [code = 709247347] Future Scheduled 2032-01-[address] [facility] Test 00:00:00 malignant neoplasm of Medica l Center colon (procedure) [code = 290631918] Future Scheduled 2032-01-[address] [facility] Test 00:00:00 malignant neoplasm of Medica l Center colon (procedure) [code = 859914658] Future Scheduled 2032-01-[address] [facility] Test 00:00:00 malignant neoplasm of Medica l Center colon (procedure) [code = 023883342] Future Scheduled 2032-01-[address] [facility] Test 00:00:00 malignant neoplasm of Medica l Center colon (procedure) [code = 187597838] Future Scheduled 2032-01-[address] [facility] Test 00:00:00 malignant neoplasm of Medica l Center colon (procedure) [code = 710695847] Future Scheduled 2023-01-[address] [facility] Test 00:00:00 [facility] Screening (12+) [code = Tobacco Cessation Counseling and Screening (12+)] Future Scheduled 2023-01-[address] [facility] Test 00:00:00 [facility] r Screening (12+) [code = Tobacco Cessation Counseling and Screening (12+)] Future Scheduled 2022-08-31 Screening for [facility] Test 13:08:39 malignant neoplasm of of Med icine breast (procedure) [code = 837098604] Future Scheduled 2022-08-31 Pneumococcal Combined Ba [facility] Test 13:08:39 (1 - PCV) [code = of Medicin e Pneumococcal Combined (1 - PCV)] Future Scheduled 2022-08-31 TETANUS SHOT (ADULT) [place] [facility] Test 13:08:39 [code = TETANUS SHOT of Medi cine (ADULT)] Future Scheduled 2022-08-31 Diabetic foot [facility] Test 13:08:39 examination of Medicine (regime/therapy) [code = 751065166] Future Scheduled 2022-08-31 ANNUAL DIABETIC [facility] C ollege Test 13:08:39 RETINOPATHY SCREENING of Med icine [code = ANNUAL DIABETIC RETINOPATHY SCREENING] Future Scheduled 2022-08-31 Hepatitis C screening [facility] Test 13:08:39 (procedure) [code = of Medic ine 098234500] Future Scheduled 2022-08-31 Human immunodeficiency B [facility] Test 13:08:39 virus screening of Medicine (procedure) [code = 361694954] Future Scheduled 2022-08-31 Screening for [facility] Col lege Test 13:08:39 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) [code = 046137876] Future Scheduled 2022-08-31 MEDICARE AWV (Initial) [employer] Test 13:08:39 [code = MEDICARE AWV of Medi cine (Initial)] Future Scheduled 2022-08-31 ZOSTER VACCINE (1 of [employer] Test 13:08:39 2) [code = ZOSTER of Medicin e VACCINE (1 of 2)] Future Scheduled 2022-08-31 COVID-19 Vaccine (4 - [facility] [employer] [employer] Test 13:08:39 Booster for Moderna of Medic ine series) [code = COVID-19 Vaccine (4 - Booster for Moderna series)] Future Scheduled 2022-08-31 FLU VACCINE > 6 MONTHS [employer] Test 13:08:39 [code = FLU VACCINE > of Med icine 6 MONTHS] Future Scheduled 2022-08-31 BMI FOLLOW UP PLAN [facility] [employer] Test 13:08:39 [code = BMI FOLLOW UP of Med icine PLAN] Future Scheduled 2022-08-31 Screening for [facility] 13:08:39 malignant neoplasm of of Med icine colon (procedure) [code = 497451602] Future Scheduled 2022-08-11 Screening for [facility] Test 15:35:44 malignant neoplasm of of Med icine breast (procedure) [code = 451329092] Future Scheduled 2022-08-11 TETANUS SHOT (ADULT) [employer] Test 15:35:44 [code = TETANUS SHOT of Medi cine (ADULT)] Future Scheduled 2022-08-11 Diabetic foot [facility] Col lege Test 15:35:44 examination of Medicine (regime/therapy) [code = 964569226] Future Scheduled 2022-08-11 ANNUAL DIABETIC [facility] C [facility]lege Test 15:35:44 RETINOPATHY SCREENING of Med icine [code = ANNUAL DIABETIC RETINOPATHY SCREENING] Future Scheduled 2022-08-11 Hepatitis C screening [employer] Test 15:35:44 (procedure) [code = of Medic ine 618662946] Future Scheduled 2022-08-11 [facility] 15:35:44 virus screening of Medicine (procedure) [code = 408099535] Future Scheduled 2022-08-11 Screening for [facility] Test 15:35:44 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) [code = 072148887] Future Scheduled 2022-08-11 MEDICARE AWV (Initial) [employer] Test 15:35:44 [code = MEDICARE AWV of Medi cine (Initial)] Future Scheduled 2022-08-11 ZOSTER VACCINE (1 of [employer] Test 15:35:44 2) [code = ZOSTER of Medicin e VACCINE (1 of 2)] Future Scheduled 2022-08-11 COVID-19 Vaccine (4 - [facility] [employer] Test 15:35:44 Booster for Moderna of Medic ine series) [code = COVID-19 Vaccine (4 - Booster for Moderna series)] Future Scheduled 2022-08-11 FLU VACCINE > 6 MONTHS [employer] Test 15:35:44 [code = FLU VACCINE > of Med icine 6 MONTHS] Future Scheduled 2022-08-11 BMI FOLLOW UP PLAN [facility] r [facility] Test 15:35:44 [code = BMI FOLLOW UP of Med icine PLAN] Future Scheduled 2022-08-11 Screening for [facility] Col lege Test 15:35:44 malignant neoplasm of of Med icine colon (procedure) [code = 027979405] Future Scheduled 2022-07-02 INFLUENZA VACCINE (#1) C [...] VACCINE (#1)] Future Scheduled 2022-06-16 Screening for [facility] Test 07:59:04 malignant neoplasm of of Med icine breast (procedure) [code = 262556934] Future Scheduled 2022-06-16 TETANUS SHOT (ADULT) [employer] Test 07:59:04 [code = TETANUS SHOT of Medi cine (ADULT)] Future Scheduled 2022-06-16 BMI FOLLOW UP PLAN [facility] r [facility] Test 07:59:04 [code = BMI FOLLOW UP of Med icine PLAN] Future Scheduled 2022-06-16 Hepatitis C screening [employer] Test 07:59:04 (procedure) [code = of Medic ine 949361126] Future Scheduled 2022-06-16 Human immunodeficiency [facility] [employer] Test 07:59:04 virus screening of Medicine (procedure) [code = 214708978] Future Scheduled 2022-06-16 Screening for [facility] 07:59:04 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) [code = 710404070] Future Scheduled 2022-06-16 MEDICARE AWV (Initial) [employer] Test 07:59:04 [code = MEDICARE AWV of Medi cine (Initial)] Future Scheduled 2022-06-16 ZOSTER VACCINE (1 of [employer] Test 07:59:04 2) [code = [...] 6 MONTHS] Future Scheduled 2022-06-16 Screening for [facility] Col lege Test 07:59:04 malignant neoplasm of of Med icine colon (procedure) [code = 561697693] Future Scheduled 2021-11-18 Screening for [facility] 09:34:08 malignant neoplasm of of Med icine colon (procedure) [code = 490994884] Future Scheduled 2021-11-18 Screening for [facility] Col lege Test 09:34:08 malignant neoplasm of of Med icine breast (procedure) [code = 329043080] Future Scheduled 2021-11-18 TETANUS SHOT (ADULT) [employer] Test 09:34:08 [code = TETANUS SHOT of Medi cine (ADULT)] Future Scheduled 2021-11-18 BMI FOLLOW UP PLAN [employer] Test 09:34:08 [code = BMI FOLLOW UP of Med icine PLAN] Future Scheduled 2021-11-18 Hepatitis C screening [employer] Test 09:34:08 (procedure) [code = of Medic ine 465831524] Future Scheduled 2021-11-18 Human immunodeficiency B [facility] Test 09:34:08 virus screening of Medicine (procedure) [code = 302819263] Future Scheduled 2021-11-18 Screening for [facility] Test 09:34:08 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) [code = 033634958] Future Scheduled 2021-11-18 MEDICARE AWV (Initial) [facility] Test 09:34:08 [code = MEDICARE AWV of Medi cine (Initial)] Future Scheduled 2021-11-18 ZOSTER VACCINE (1 of [facility] Test 09:34:08 2) [code = ZOSTER of Medicin e VACCINE (1 of 2)] Future Scheduled 2021-11-18 FLU VACCINE > 6 MONTHS B [facility] Test 09:34:08 [code = FLU VACCINE > of Med icine 6 MONTHS] Future Scheduled 2021-11-13 Depression screening Uni versity of Test 00:00:00 (procedure) [code = [facility] dical 929906941] Branch Future Scheduled 2021-11-10 COVID-19 VACCINE (4 [...] Scheduled 2021-11-06 ANOREC MANOM AND 1 Occurrences [facility] Test 14:07:12 EMG-GI DEPT [code = starting of Medic ine NOCPT] 11/06/2021 until 05/06/2022 Future Scheduled 2021-11-06 EGD W/MAC - GI DEPT 1 Occurrences [facility] Test 14:07:11 [code = 99034] starting of Medicine 11/06/2021 until 05/06/2022 Future Scheduled 2021-11-06 COLONOSCOPY W MAC GI 1 Occurrences [facility] Test 14:07:11 DEPT [code = 48668] starting of Medic ine 11/06/2021 until 05/06/2022 Future Scheduled 2021-11-[address] [facility] Test 00:00:00 (12+) [code = Medical Center DEPRESSION SCREENING (12+)] Future Scheduled 2021-11-[address] [facility] Test 00:00:00 (12+) [code = Medical Center DEPRESSION SCREENING (12+)] Future Scheduled 2021-11-[address] [facility] Test 00:00:00 (12+) [code = Medical Center DEPRESSION SCREENING (12+)] Future Scheduled 2021-11-[address] [facility] Test 00:00:00 (12+) [code = Medical Center DEPRESSION SCREENING (12+)] Future Scheduled 2020-12-28 Creatinine measurement [facility] Test 00:00:00 (procedure) [code = [place] [facility] 72257004] Branch Future Scheduled 2020-12-28 Calculated low density [facility] of Test 00:00:00 lipoprotein [facility] cholesterol level Branch (procedure) [code = 106175215] Future Scheduled 2020-06-27 Hemoglobin A1c Universit y of Test 00:00:00 measurement [facility] (procedure) [code = Branch 92098901] Future Scheduled 2020-04-18 Diabetic foot University of Test 00:00:00 examination [facility] (regime/therapy) [code Branc h = 992070668] Future Scheduled 2019-09-16 Examination of retina Un iversity of Test 00:00:00 (procedure) [code = [place] [facility] 071916302] Branch Future Scheduled 2017 Screening for occult Uni versity of Test 00:00:00 blood in feces [place] [facility] (procedure) [code = Branch 461225069] Future Scheduled 2017 Stool DNA-based Universi ty of Test 00:00:00 colorectal cancer [place] [facility] screening (procedure) Branch [code = 420078448731391] Future Scheduled 2017 Flexible fiberoptic Univ ersity of Test 00:00:00 sigmoidoscopy [facility] (procedure) [code = Branch 76936183] Future Scheduled 2017 Screening for University of Test 00:00:00 malignant neoplasm of [place] [facility] colon (procedure) Branch [code = 468877412] Future Scheduled 2017 Screening for [facility] of Test 00:00:00 malignant neoplasm of [place] [facility] colon (procedure) Branch [code = 478445185] Future Scheduled 2017 Zoster Recombinant Unive rsity of Test 00:00:00 Vaccine (SHINGRIX) (1 [place] [facility] 2) [code = Zoster Branch Recombinant Vaccine (SHINGRIX) (1 of 2)] Future Scheduled 2017 SHINGLES VACCINES ([address] [facility] Test 00:00:00 of 2) [code = SHINGLES Medic al Center VACCINES (1 of 2)] Future Scheduled 2017 SHINGLES VACCINES ([address] [facility] Test 00:00:00 of 2) [code = SHINGLES Medic al Center VACCINES (1 of 2)] Future Scheduled 2017 SHINGLES VACCINES ([address] [facility] Test 00:00:00 of 2) [code = SHINGLES Medic al Center VACCINES (1 of 2)] Future Scheduled 2017 SHINGLES VACCINES ([address] [facility] Test 00:00:00 of 2) [code = SHINGLES Medic al Center VACCINES (1 of 2)] Future Scheduled [address] [facility] Test 00:[facility]:00 (procedure) [code = Medical Center 44988292] Future Scheduled [address] [facility] Test 00:00:00 (procedure) [code = Medical Center 75700655] Future Scheduled [address] [facility] Test 00:00:00 (procedure) [code = Medical Center 80519763] Future Scheduled [address] [facility] Test 00:00:00 (procedure) [code = Medical Center 71155468] Future Scheduled 2011-11-[address] [...] University of Test 00:00:00 malignant neoplasm of [place] [facility] breast (procedure) Branch [code = 464628923] Future Scheduled 1988 Screening for University of Test 00:00:00 malignant neoplasm of [facility] cervix (procedure) Branch [code = 582983091] Future Scheduled [address] [facility]:00 malignant neoplasm of Med[facility] Center cervix (procedure) [code = 315941582] Future Scheduled [address] [facility] Test 00:00:00 malignant neoplasm of [facility] Center cervix (procedure) [code = 737199707] Future Scheduled [address] [facility] Test 00:00:00 malignant neoplasm of [facility] Center cervix (procedure) [code = 357138560] Future Scheduled [address] [facility] Test 00:00:00 malignant neoplasm of [facility]ica [facility] Center cervix (procedure) [code = 659347176] Future Scheduled 1986 DTaP,Tdap,and Td Univers ity of Test 00:00:00 Vaccines (1 - Tdap) [facility] dical [code = DTaP,Tdap,and Branch Td Vaccines (1 - Tdap)] Future Scheduled 1986 DTAP/TDAP/TD [facility]ACCINES [facility]00 (1 - Tdap) [code = Medical C enter DTAP/TDAP/TD VACCINES (1 - Tdap)] Future Scheduled 1986 DTAP/TDAP/TD [facility]ACCINES [facility] Test 00:00:00 (1 - Tdap) [code = Medical C enter DTAP/TDAP/TD VACCINES (1 - Tdap)] Future Scheduled 1986 DTAP/TDAP/TD [facility]ACCINES [facility] Test 00:00:00 (1 - Tdap) [code = Medical C enter DTAP/TDAP/TD VACCINES (1 - Tdap)] Future Scheduled 1986 DTAP/TDAP/TD [...] Me dical quantitative Branch (procedure) [code = 944979239] Future Scheduled [address] [facility] Test 00:00:00 malignant neoplasm of Medica l Center breast (procedure) [code = 857257001] Future Scheduled [address] [facility] Test 00:00:00 (combo) [code = CT Medical C enter Colonography (combo)] Future Scheduled [address] [facility] Test 00:00:00 malignant neoplasm of Medica l Center colon (procedure) [code = 831618897] Future Scheduled [address] [facility] Test 00:00:00 malignant neoplasm of Medica l Center colon (procedure) [code = 585183717] Future Scheduled 1967 Sigmoidoscopy [code [facility]oscopy] Medical Cente r Future Scheduled [address] [facility] Test 00:00:00 malignant neoplasm of Medica l Center breast (procedure) [code = 834068625] Future Scheduled [address] [facility] Test 00:00:00 (combo) [code = CT Medical C enter Colonography (combo)] Future Scheduled [address] [facility] Test 00:00:00 malignant neoplasm of Medica l Center colon (procedure) [code = 147418087] Future Scheduled [address] [facility] Test 00:00:00 malignant neoplasm of Medica l Center colon (procedure) [code = 685594115] Future Scheduled 1967 Sigmoidoscopy [facility]code [facility] Sigmoidoscopy] Medical Paoloe r Future Scheduled [address] [facility] Test 00:00:00 malignant neoplasm of Medica l Center breast (procedure) [code = 724659140] Future Scheduled [address] [facility] Test 00:00:00 (combo) [code = CT Medical C enter Colonography (combo)] Future Scheduled [address] [facility] Test 00:00:00 malignant neoplasm of Medica l Center colon (procedure) [code = 940759955] Future Scheduled [address] [facility] Test 00:00:00 malignant neoplasm of Medica l Center colon (procedure) [code = 107876323] Future Scheduled 1967 Sigmoidoscopy [facility]code [facility] Sigmoidoscopy] Medical Paoloe r Future Scheduled [address] [facility] Test 00:00:00 malignant neoplasm of Medica l Center breast (procedure) [code = 301836417] Future Scheduled [address] [facility] Test 00:00:00 (combo) [code = CT Medical C enter Colonography (combo)] Future Scheduled [address] [facility] Test 00:00:00 malignant neoplasm of Medica l Center colon (procedure) [code = 108999719] Future Scheduled [address] [facility] Test 00:00:00 malignant neoplasm of Medica l Center colon (procedure) [code = 981737355] Future Scheduled 1967 Sigmoidoscopy [facility]code [facility] Sigmoidoscopy] Medical Cente r Encounters Start End Encounter Admission Attending Care Care Encounter Source Date/Time Date/Time Type Type Clinicians Facility Department ID 2021-08-29 Emergency [facility] [id number] Univers 21:08:39 [facility] 2020-08-23 Inpatient Tapan Martin [facility] [id number] [facility] 15:14:[address] [facility] 2019-12-07 Inpatient KYLAH Rodriguez [facility] ENDO [id number] [facility] 10:00:[address] [facility] 2023-01-19 2023-01-19 Outpatient Leona SHERIFF [facility] [id number] Univers 09:00:00 09:00:00 [facility] 2022-10-21 2022-10-21 [facility] 1.2.840.114 [id number] Univers 09:30:00 09:45:00 Visit [facility] 350.1.13.10 it y of [place] 4.2.7.2.686 Frankie as ULISSES?BLEA [id number] [address] OFFICE [facility] 2022-10-21 2022-10-21 Outpatient Leona SHERIFF [facility] [id number] Univers 09:30:00 09:24:24 [facility] 2022-10-01 2022-10-01 [facility] 1.2.840.114 [id number] Univers 00:00:00 00:00:00 [facility] 350.1.13.10 it y of [place] 4.2.7.2.686 Frankie as ULISSES?BLEA [id number] [address] OFFICE [facility] 2022-09-21 2022-09-21 Outpatient Leona SHERIFF [facility] [id number] Univers 10:00:00 10:00:00 [facility] 2022-09-21 2022-09-21 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 Lab, [place] - Len [facility] 1.2.840.1 [id number] Univers 10:00:00 10:00:00 Visit Jaziel [facility] 350.1.13.10 ity of [place] 4.2.7.2.686 Frankie as ULISSES?BLEA [phone] [place] mary GOEL [address] [place] MEDICAL OFFICE BUILDING 2022-09-21 2022-09-21 Office [facility] 1.2.840.114 [id number] Univers 09:45:00 10:00:00 Visit [facility] 350.1.13.10 it y of [place] 4.2.7.2.686 Frankie as ULISSES?BLEA [phone] [place] m[place] GOEL [address] [place] MEDICAL OFFICE [facility] 2022-09-18 2022-09-18 Refmaddie [facility] 1.2.840.114 [id number] Univers 00:00:00 00:00:00 [facility] 350.1.13.10 it y of [place] 4.2.7.2.686 Frankie as ULISSES?BLEA [phone] [place] GOEL [address] [place] [address] OFFICE [facility] 2022-09-17 2022-09-17 Refmaddie [facility] 1.2.840.114 [id number] Univers 00:00:00 00:00:00 [facility] 350.1.13.10 it y of [place] 4.2.7.2.686 Frankie as ULISSES?BLEA [phone] [place] GOEL [address] [place] [address] MEDICAL OFFICE [facility] 2022-09-07 2022-09-07 [facility] 1.2.840.114 [id number] Univers 00:00:00 00:00:00 [facility] 350.1.13.10 it y of [place] 4.2.7.2.686 Fraknie as ULISSES?BLEA [phone] [place] mary GOEL [address] [place] [address] OFFICE BUILDING 2022-09-03 2022-09-03 Refmaddie [facility] 1.2.840.114 [id number] Univers 00:00:00 00:00:00 [facility] 350.1.13.10 it y of [place] 4.2.7.2.686 Frankie as ULISSES?BLEA [phone] [place] mary GOEL [address] [place] [address] MEDICAL OFFICE BUILDING 2022-09-03 2022-09-03 Refill [facility] 1.2.840.114 [id number] Univers 00:00:00 00:00:00 [facility] 350.1.13.10 it y of [place] 4.2.7.2.686 Frankie as ULISSES?BLEA [phone] Wv dical KNEY [address] [facility] OFFICE [facility] 2022-08-31 2022-08-31 Office JAYESH OLSEN 1.2.840.[id number] [place] [address] 13:14:07 15:10:18 Visit [facility] [facility] 350.1.13.21 College Y 0.2.7.2.686 of [id number] [facility] 810 e 2022-08-28 2022-08-28 Outpatient R JO [facility] [id number] Univers 08:05:50 23:59:00 SONJA pierre of [facility] 2022-08-28 2022-08-28 Hospital [facility] 1.2.840.114 [id number] Univers 08:05:50 23:59:00 Encounter Sonja LEE 350.1.13.10 ity of [facility] [place] [id number] [facility] [address] [place] 2022-08-28 2022-08-28 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 Jenniffer Paige Lab Main [facility] 1.2.8 40.114 [id number] Univers 08:15:00 08:30:00 Visit Sonja Osorio 350.1.13.10 ity of [facility] 4.2.7.2.686 [place] PROF[place] [phone] [place] mary NAL [address] [facility] 2022-08-28 2022-08-28 Telephone [facility] 1.2.061.057 [id number] Univers 00:00:00 00:00:00 Sonja HEALTH 350.1.13.10 it y of [place] 4.2.7.2.686 Frankie as ULISSES?BLEA [phone] Wv dical KNEY [address] [facility] OFFICE BUILDING 2022-08-26 2022-08-26 Outpatient R JO [facility] [id number] Univers 00:00:00 00:00:00 SONJA pierre [facility] 2022-08-25 2022-08-25 Outpatient R GLENSourav [facility] [id number] Univers 10:00:00 11:23:37 SONJA pierre [facility] 2022-08-25 2022-08-25 Office Glensourav [facility] 1.2.840.114 [id number] [facility] 10:00:00 11:23:37 Visit Sonja [facility] 350.1.13.10 it y of [place] 4.2.7.2.686 Frankie as ULISSES?BLEA [id number] [address] OFFICE [facility] 2022-08-24 2022-08-24 Telephone Jo [facility] 1.2.310.444 [id number] [facility] 00:00:00 00:00:00 Sonja [facility] 350.1.13.10 it y of [place] 4.2.7.2.686 Frankie as ULISSES?BLEA [phone] [address] OFFICE [facility] 2022-08-21 2022-08-21 Refmaddie [facility] 1.2.840.114 [id number] [facility] 00:00:00 00:00:00 [facility] 350.1.13.10 it y of [place] 4.2.7.2.686 Frankie as ULISSES?BLEA [id number] [address] OFFICE [facility] 2022-08-18 2022-08-18 Rohith [facility] 1.2.840.114 [id number] [facility] 00:00:00 00:00:00 [facility] 350.1.13.10 it y of [place] 4.2.7.2.686 Frankie as ULISSES?BLEA [id number] [address] OFFICE [facility] 2022-08-11 2022-08-11 Office JAYESH RAI 1.2.840.114 [id number] [facility] 15:06:02 15:06:02 Visit YONGHOON AMBULATOR 350.1.13.21 College Y 0.2.7.2.686 of [id number] [facility] 800 e 2022-08-06 2022-08-06 Rohith [facility] 1.2.840.114 [id number] Univers 00:00:00 00:00:00 [facility] 350.1.13.10 it y of [place] 4.2.7.2.686 Frankie as ULISSES?BLEA [id number] [address] OFFICE [facility] 2022-08-05 2022-08-05 Rohith [facility] 1.2.840.114 [id number] Univers 00:00:00 00:00:00 [facility] 350.1.13.10 it y of [place] 4.2.7.2.686 Frankie as ULISSES?BLEA [id number] [address] 2022-07-30 2022-07-30 Rohith [facility] 1.2.840.114 [id number] Univers 00:00:00 00:00:00 [facility] 350.1.13.10 it y of [place] 4.2.7.2.686 Rfankie as ULISSES?BLEA [id number] [address] 2022-07-28 2022-07-28 Outpatient [facility] [id number] [facility] 11:11:47 23:59:00 2022-07-28 2022-07-28 [facility] [id number] 11:11:47 23:59:00 Encounter [facility] 2022-07-28 2022-07-28 [facility] [id number] 11:11:47 23:59:00 Encounter [facility] 2022-07-26 2022-07-26 [facility] 1.2.840.114 [id number] Univers 00:00:00 00:00:00 [facility] 350.1.13.10 it y of [place] 4.2.7.2.686 Frankie as ULISSES?BLEA [id number] [address] OFFICE [facility] 2022-07-21 2022-07-21 Rohith [facility] 1.2.840.114 [id number] Univers 00:00:00 00:00:00 [facility] 350.1.13.10 it y of [place] 4.2.7.2.686 Frankie as ULISSES?BLEA [id number] [address] 2022-07-19 2022-07-19 Refmaddie [facility] 1.2.840.114 [id number] Univers 00:00:00 00:00:00 [facility] 350.1.13.10 it y of [place] 4.2.7.2.686 Frankie as ULISSES?BLEA [id number] [address] 2022-07-09 2022-07-09 [facility] [place] [facility] 1.2.840.114 [id number] Univers 00:00:00 00:00:00 [facility] 350.1.13.10 it y of [place] 4.2.7.2.686 Frankie as ULISSES?BLEA [id number] [address] 2022-07-08 2022-07-08 Outpatient Angelica MATHIS [facility] [id number] [facility] 11:43:31 12:15:51 Anton Medicin e 2022-07-08 2022-07-[address] [facility] [id number] 00:00:00 00:00:00 Orders [employer] 2022-07-08 2022-07-[address] [facility] [id number] 00:00:00 00:00:00 Orders [employer] 2022-07-04 2022-07-04 [facility] 1.2.840.114 [id number] Univers 00:00:00 00:00:00 [facility] 350.1.13.10 it y of [place] 4.2.7.2.686 Frankie as ULISSES?BLEA [id number] [address] 2022-06-30 2022-06-30 Rohith [facility] 1.2.840.114 [id number] Univers 00:00:00 00:00:00 [facility] 350.1.13.10 it y of [place] 4.2.7.2.686 Frankie as ULISSES?BLEA [id number] [address] MEDICAL OFFICE [facility] 2022-06-23 2022-06-23 Outpatient Leona CALERO [facility] [id number] Univers 09:00:00 09:00:00 GERMAIN henri [facility] 2022-06-21 2022-06-21 Rohith [facility] 1.2.840.114 [id number] Univers 00:00:00 00:00:00 [facility] 350.1.13.10 it y of [place] 4.2.7.2.686 Frankie as ULISSES?BLEA [id number] [address] MEDICAL OFFICE [facility] 2022-06-17 2022-06-17 Outpatient Leona SHERIFF [facility] [id number] Univers 10:00:00 10:00:00 [facility] 2022-06-16 2022-06-16 Office BILLIE [facility] 1.2.840.[id number] [place] [address] 07:46:52 10:29:18 Visit CHARO AMBULATOR 350.1.13.21 College Y 0.2.7.2.686 of [id number] Medi patsy 325 e 2022-06-08 2022-06-08 Rohith [facility] 1.2.840.114 [id number] Univers 00:00:00 00:00:00 [facility] 350.1.13.10 it y of [place] 4.2.7.2.686 Frankie as ULISSES?BLEA [id number] [address] MEDICAL OFFICE [facility] 2022-06-08 2022-06-08 Rohith [facility] 1.2.840.114 [id number] Univers 00:00:00 00:00:00 [facility] 350.1.13.10 it y of [place] 4.2.7.2.686 Frankie as ULISSES?BLEA [id number] [address] MEDICAL OFFICE [facility] 2022-06-03 2022-06-03 [facility] 1.2.840.114 [id number] Univers 00:00:00 00:00:00 [facility] 350.1.13.10 it y of [place] 4.2.7.2.686 Frankie as ULISSES?BLEA [phone] [place] mary GOEL [address] [place] [address] 2022-06-03 2022-06-03 [facility] 1.2.840.114 [id number] Univers 00:00:00 00:00:00 [facility] 350.1.13.10 it y of [place] 4.2.7.2.686 Frankie as ULISSES?BLEA [phone] [place] mary GOEL [address] [place] [address] 2022-05-17 2022-05-17 [facility] [place] 1.2.840.114 [id number] Univers 00:00:00 00:00:00 [facility] 350.1.13.10 it y of [place] 4.2.7.2.686 Frankie as ULISSES?BLEA [id number] [place] mary GOEL [address] [place] [address] 2022-05-11 2022-05-11 [facility] 1.2.840.114 [id number] Univers 00:00:00 00:00:00 [facility] 350.1.13.10 it y of [place] 4.2.7.2.686 Frankie as ULISSES?BLEA [id number] [place] mary GOEL [address] [place] [address] 2022-04-08 2022-04-08 Outpatient Aguilar_M [facility] [id number] [facility] 00:00:00 00:00:00 [id number] Family Practic e 2022-04-08 2022-04-08 [facility] [place] 1.2.840.114 [id number] Univers 00:00:00 00:00:00 [facility] 350.1.13.10 it y of [place] 4.2.7.2.686 Frankie as ULISSES?BLEA [id number] [facility] JAMILA[address] 2022-03-31 2022-03-31 Refmaddie [facility] 1.2.840.114 [id number] Univers 00:00:00 00:00:00 [facility] 350.1.13.10 it y of [place] 4.2.7.2.686 Frankie as ULISSES?BLEA [id number] [address] MEDICAL OFFICE [facility] 2022-03-18 2022-03-18 [facility] [id number] Univers 09:30:00 09:45:06 [facility] 2022-03-18 2022-03-18 Office [facility] 1.2.840.114 [id number] Univers 09:30:00 09:45:00 Visit [facility] 350.1.13.10 it y of [place] 4.2.7.2.686 Frankie as ULISSES?BLEA [id number] [address] MEDICAL OFFICE [facility] 2022-03-18 2022-03-18 Outpatient Leona SHERIFF [facility] [id number] Univers 09:30:00 09:30:00 [facility] 2022 2022 [facility] 1.2.840.114 [id number] Univers 00:00:00 00:00:00 [facility] 350.1.13.10 it y of [place] 4.2.7.2.686 Frankie as ULISSES?BLEA [id number] [address] OFFICE [facility] 2022-03-13 2022-03-13 [facility] [place] 1.2.840.114 [id number] Univers 00:00:00 00:00:00 [facility] 350.1.13.10 it y of [place] 4.2.7.2.686 Frankie as ULISSES?BLEA [id number] [address] MEDICAL OFFICE [facility] 2022-03-11 2022-03-11 Rohith [facility] 1.2.840.114 [id number] Univers 00:00:00 00:00:00 [facility] 350.1.13.10 it y of [place] 4.2.7.2.686 Frankie as ULISSES?BLEA [phone] Me mary MARINO[address] OFFICE [facility] 2022-03-09 2022-03-09 [facility] 1.2.840.114 [id number] Univers 00:00:00 00:00:00 [facility] 350.1.13.10 it y of [place] 4.2.7.2.686 Frankie as ULISSES?BLEA [id number] [address] OFFICE [facility] 2022-03-05 2022-03-05 [facility] [place] 1.2.840.114 [id number] Univers 00:00:00 00:00:00 [facility] 350.1.13.10 it y of [place] 4.2.7.2.686 Frankie as ULISSES?BLEA [phone] [address] 2022-03-02 2022-03-02 [facility] 1.2.840.114 [id number] Univers 00:00:00 00:00:00 [facility] 350.1.13.10 it y of [place] 4.2.7.2.686 Frankie as ULISSES?BLEA [id number] [address] OFFICE [facility] 2022-03-02 2022-03-02 [facility] [place] [facility] [id number] Univers 00:00:00 00:00:00 [facility] [id number] it y of [place] [id number] Frankie as ULISSES?BLEA [phone] [address] OFFICE [facility] 2022-02-05 2022-02-05 [place] [facility] [id number] Univers 00:00:00 00:00:00 [facility] [id number] it y of [place] [id number] Frankie as ULISSES?BLEA [phone] [address] OFFICE [facility] 2022-01-30 2022-01-30 [facility] [place] [facility] [id number] Univers 00:00:00 00:00:00 [facility] [id number] it y of [place] [id number] Frankie as PROFESSIO [phone] [place] [address] [facility] 2022-01-25 2022-01-25 Emergency X [facility] ERT [id number] Univers 12:57:00 16:23:00 JACQUELIN pierre of [facility] 2022-01-25 2022-01-25 Emergency [facility] [id number] Univers 12:57:00 16:23:00 Jacquelin ADHIKARISAN [facility] 350.1.13.10 ity of [facility] 4.2.7.2.686 [facility] [phone] [place] [id number] [place] 2022-01-22 2022-01-22 Outpatient Eri VFP VFP [id number] [place] [address] 08:43:00 08:43:00 [id number] Family Practic e 2022-01-14 2022-01-14 [facility] 1.2.840.114 [id number] Univers 00:00:00 00:00:00 [facility] 350.1.13.10 it y of [place] 4.2.7.2.686 Frankie as PROFESSIO [phone] [place] dical NAL 044 [facility] ONE 2022-01-09 2022-01-09 Outpatient [facility] [id number] [facility] 15:12:14 15:12:14 CHARO [facility] 2022-01-09 2022-01-09 Outpatient [facility] [id number] [facility] 15:10:12 15:10:12 CHARO [facility] 2022-01-09 2022-01-09 [facility] [id number] 07:39:00 14:08:00 Encounter [facility] 2022-01-09 2022-01-09 [facility] [id number] 07:39:00 14:08:00 Encounter [facility] 2022-01-09 2022-01-09 Outpatient EL BILLIE, SLE Surgery [id number] [facility] 07:39:00 14:08:00 CHARO 2022-01-09 2022-01-09 Anesthesia Adam Sierra Matt [facility] [id number] 11:08:00 12:56:00 Event [facility] 2022-01-09 2022-01-09 Anesthesia Adam Sierra Matt [facility] [id number] 11:08:00 12:56:00 Event Sigiredjosefina [facility] 2022-01-09 2022-01-09 Surgery Billie, [facility] [id number] 11:30:00 12:50:[address] [facility] 2022-01-09 2022-01-09 Surgery [facility], [facility] [id number] 11:30:00 12:50:00 [facility] 2022-01-09 2022-01-09 Travel [facility] [id number] [facility] 00:00:00 00:00:00 [facility] 2022-01-09 2022-01-09 Travel [facility] [id number] [facility] 00:00:00 00:00:00 [facility] 2022-01-08 2022-01-08 Outpatient EL SLE SLE [id number] [facility] 12:18:15 23:59:00 2022-01-08 2022-01-08 [facility] [id number] 11:55:00 23:59:00 Encounter [facility] 2022-01-08 2022-01-08 [facility] [id number] 11:55:00 23:59:00 Encounter [facility] 2022-01-08 2022-01-08 Travel [facility] [id number] [facility] 00:00:00 00:00:00 [facility] 2022-01-08 2022-01-08 Travel [facility] [id number] [facility] St 00:00:00 00:00:00 [facility] 2021-12-18 2021-12-18 Office [facility] 1.2.840.114 [id number] Univers 15:45:00 16:15:00 Visit [facility] 350.1.13.10 it y of [place] [facility] 4.2.7.2.686 Frankie as ULISSES?BLEA [phone] [place] mary GOEL [address] [facility] OFFICE BUILDING 2021-12-18 2021-12-18 [facility] [id number] Univers 15:45:00 15:45:00 [facility] 2021-12-18 2021-12-18 Outpatient [facility] [id number] Univers 15:45:00 15:45:00 [facility] 2021-12-16 2021-12-16 Outpatient [facility] [id number] Univers 16:00:00 16:00:00 [facility] 2021-12-16 2021-12-16 Orders Doctor OLGA 1.2.840.114 [id number] Univers 00:00:00 00:00:00 Only Unassigned, STEVE 350.1.13.10 ity of [place] [facility] 4.2.7.2.686 Frankie as [phone] [address] 2021-12-15 2021-12-15 Rohith Sheriff [facility] 1.2.840.114 [id number] Univers 00:00:00 00:00:00 [facility] 350.1.13.10 it y of [place] 4.2.7.2.686 Frankie as PROFESSIO [phone] [place] mary PINA 044 [place] OFFICE BUILDING ONE 2021-12-08 2021-12-08 [facility] 1.2.840.114 [id number] Univers 00:00:00 00:00:00 [facility]ALTH 350.1.13.10 it y of [place] [facility] 4.2.7.2.686 Frankie as ULISSES?BLEA [phone] [place] dical [address] OFFICE [facility] 2021-12-04 2021-12-04 [facility] [id number] 08:54:00 10:51:00 Encounter [facility] 2021-12-04 2021-12-04 [facility] [id number] 08:54:00 10:51:00 Encounter [facility] 2021-12-04 2021-12-04 Outpatient [facility] Surgery [id number] SLE 08:54:00 10:51:00 [facility] 2021-12-04 2021-12-04 [facility] [id number] 09:00:00 10:30:00 [facility] 2021-12-04 2021-12-04 [facility] [id number] 09:00:00 10:30:00 [facility] 2021-11-19 2021-11-19 Telephone [facility] 1.2.131.817 [id number] Univers 00:00:00 00:00:00 [facility] 350.1.13.10 it y of [place] [facility] 4.2.7.2.686 Frankie as ULISSES?BLEA [phone] [place] mary [address] OFFICE [facility] 2021-11-15 2021-11-15 Refill [facility] 1.2.840.114 [id number] Univers 00:00:00 00:00:00 [facility]ALTH 350.1.13.10 it y of [place] [facility] 4.2.7.2.686 Frankie as PROFESSIO [phone] [address] OFFICE [facility] ONE 2021-11-06 2021-11-06 Office BILLIE [facility] 1.2.840.114 [id number] [facility] 13:24:51 16:22:30 Visit CHARO AMBULATOR 350.1.13.21 College Y 0.2.7.2.686 of [id number] [facility] patsy 325 e 2021-11-06 2021-11-06 Rohith Sheriff [facility] 1.2.840.114 [id number] Univers 00:00:00 00:00:00 [facility]ALTH 350.1.13.10 it y of [place] 4.2.7.2.686 Frankie as ULISSES?BLEA [phone] [facility] MARINO[address] OFFICE [facility] 2021-11-01 2021-11-01 Outpatient Aguilar_M VFP VFP [id number] [facility] 02:58:00 02:58:00 [id number] Family Practic e 2021-10-27 2021-10-27 [facility] 1.2.840.114 [id number] Univers 00:00:00 00:00:00 [facility] 350.1.13.10 it y of [place] 4.2.7.2.686 Frankie as PROFESSIO [phone] [address] ONE 2021-10-16 2021-10-16 Rohith Sheriff [facility] 1.2.840.114 [id number] Univers 00:00:00 00:00:00 [facility] 350.1.13.10 it y of [place] 4.2.7.2.686 Frankie as PROFESSIO [phone] [address] ONE 2021-10-11 2021-10-11 Outpatient Aguilar_M VFP VFP [id number] [place] [address] 06:17:00 06:17:00 [id number] Family Practic e 2021-10-07 2021-10-07 [facility] 1.2.840.114 [id number] Univers 00:00:00 00:00:00 [facility] 350.1.13.10 it y of [place] 4.2.7.2.686 Frankie as ULISSES?BLEA [phone] [facility] JAMILA[address] OFFICE [facility] 2021-10-03 2021-10-03 Outpatient Aguilar_M VFP VFP [id number] [place] [address] 05:34:00 05:34:00 [id number] Family Practic e 2021-09-29 2021-09-29 Rohith Coughlin [facility] 1.2.144.070 [id number] Univers 00:00:00 00:00:00 [facility] 350.1.13.10 it y of SURGICAL 4.2.7.2.686 Frankie as SPECIALTI [phone] [place] dicjessica ES 198 [facility] 2021-09-18 2021-09-18 Outpatient Leona SHERIFF [facility] [id number] Univers 10:15:00 10:15:00 RANDALL pierre [facility] 2021-09-18 2021-09-18 Office [facility] 1.2.840.114 [id number] Univers 08:40:07 08:55:07 Visit [facility] 350.1.13.10 it y of [place] 4.2.7.2.686 Frankie as ULISSES?BLEA [phone] [place] dicjessica GOEL [address] [facility] OFFICE [facility] 2021-09-18 2021-09-18 Outpatient Leona SHERIFF [facility] [id number] Univers 10:15:00 08:52:38 RANDALL henri [facility] 2021-09-08 2021-09-08 Refmaddie [facility] 1.2.840.114 [id number] Univers 00:00:00 00:00:00 [facility] 350.1.13.10 it y of [place] 4.2.7.2.686 Frankie as ULISSES?BLEA [phone] [place] dicjessica KNALEXIS [address] [facility] OFFICE [facility] 2021-09-04 2021-09-04 Rohith [facility] 1.2.840.114 [id number] Univers 00:00:00 00:00:00 [facility] 350.1.13.10 it y of [place] 4.2.7.2.686 Frankie as PROFESSIO [phone] [place] dical NAL 044 [place] OFFICE [facility] ONE 2021-08-28 2021-08-28 Rohith [facility] 1.2.840.114 [id number] Univers 00:00:00 00:00:00 [facility] 350.1.13.10 it y of [place] 4.2.7.2.686 Frankie as PROFESSIO [phone] [place] dical NAL [address] [place] [address] OFFICE [facility] ONE 2021-08-22 2021-08-22 Refmaddie [facility] 1.2.840.114 [id number] Univers 00:00:00 00:00:00 [facility] 350.1.13.10 it y of [place] 4.2.7.2.686 Frankie as Professio [phone] [address] Office [facility] One 2021-08-21 2021-08-21 Yousuf Acosta_Julissa [facility] - [id number] [facility] 00:00:00 00:00:00 [facility] [id number] [facility] Dave Medical - Pract brando MD: [address], [place] [address] , Ph. 2021-08-20 2021-08-20 Outpatient Lm_Leona [facility] [id number] [facility] 04:30:00 04:30:00 [id number] [facility] 2021-08-20 2021-08-20 Telephone [facility] 1.2.972.903 [id number] Univers 00:00:00 00:00:00 [facility] 350.1.13.10 it y of [place] 4.2.7.2.686 Frankie as Ulisses?Blea [phone] [address] Office [facility] 2021-08-07 2021-08-07 [facility] 1.2.840.114 [id number] Univers 00:00:00 00:00:00 [facility] 350.1.13.10 it y of [place] 4.2.7.2.686 Frankie as Ulisses?Blea [phone] [address] Office [facility] 2021-07-14 2021-07-14 [facility] 1.2.840.114 [id number] Univers 00:00:00 00:00:00 [facility] 350.1.13.10 it y of [place] 4.2.7.2.686 Frankie as Ulisses?Blea [phone] [address] Office [facility] 2021-07-11 2021-07-11 Imm/Inj Nurse, Adc Pob Immunization [facility] 1.2.840.114 [id number] Univers 10:44:02 10:44:14 Visit Miguel Patel 350.1.13 .10 ity [facility] 4.2.7.2.686 [place] Profess[place] [phone] [facility] 421 [facility] 2021-07-11 2021-07-11 Outpatient R IRAIS [facility] [id number] Univers 10:30:00 10:30:00 MIGUEL ithenri [facility] 2021-07-10 2021-07-10 Refmaddie [facility] 1.2.840.114 [id number] Univers 00:00:00 00:00:00 [facility] 350.1.13.10 it y of [place] 4.2.7.2.686 Frankie as Ulisses?Blea [phone] [facility] 044 [facility] Office [facility] 2021-06-29 2021-06-29 Rohith [facility] 1.2.840.114 [id number] Univers 00:00:00 00:00:00 [facility] 350.1.13.10 it y of [place] 4.2.7.2.686 Frankie as Professio [phone] [facility] 044 [place] Office [facility] One 2021-06-24 2021-06-24 Rohith [facility] 1.2.840.114 [id number] Univers 00:00:00 00:00:00 [facility] 350.1.13.10 it y of [place] 4.2.7.2.686 Frankie as Professio [phone] [place] dical nal 044 [place] Office [facility] One 2021-06-10 2021-06-10 Rohith [facility] 1.2.840.114 [id number] Univers 00:00:00 00:00:00 [facility] 350.1.13.10 it y of [place] 4.2.7.2.686 Frankie as Professio [phone] [facility] nal 044 [place] Office Building One 2021-06-09 2021-06-09 Rohith [facility] 1.2.840.114 [id number] Univers 00:00:00 00:00:00 [facility] 350.1.13.10 it y of [place] 4.2.7.2.686 Frankie as Professio [phone] [place] dical nal 044 [place] Office Building One 2021-06-09 2021-06-09 Refill [facility] 1.2.840.114 [id number] Univers 00:00:00 00:00:00 [facility] 350.1.13.10 it y of [place] 4.2.7.2.686 Frankie as Professio [phone] [place] dical nal 044 [place] Office Building One 2021-06-01 2021-06-01 Refill [facility] 1.2.840.114 [id number] Univers 00:00:00 00:00:00 [facility] 350.1.13.10 it y of [place] 4.2.7.2.686 Frankie as Professio [phone] [place] dical nal [address] [place] [address] Office Building One 2021-05-15 2021-05-15 Patient Nabil [facility] 1.2.840.114 [id number] Univers 00:00:00 00:00:00 Outreach Jaimee [address] 350.1.13.10 i ty of [place] 4.2.7.2.686 Frankie as Professio [phone] [place] dical nal [address] [place] [address] Office Building One 2021-05-14 2021-05-14 Nurse Cbc, Medicare Wellness [facility] 1.2.840.114 [id number] Univers 09:04:42 10:32:18 Visit Randall Sheriff [facility] 350.1.13.10 ity of [place] 4.2.7.2.686 Frankie as Professio [phone] [place] dical nal 044 [place] Office Building One 2021-05-14 2021-05-14 Office Jaziel [facility] 1.2.840.114 [id number] Univers 08:58:25 09:13:25 Visit Randall [facility] 350.1.13.10 it y of [place] 4.2.7.2.686 Frankie as Professio [phone] [place] dical nal [address] [place] [address] Office Building One 2021-05-14 2021-05-14 Outpatient R JAZIEL [facility] [id number] Univers 09:00:00 09:00:00 RANDALL pierre [facility] 2021-05-12 2021-05-12 Rohith [facility] 1.2.840.114 [id number] Univers 00:00:00 00:00:00 [facility] 350.1.13.10 it y of [place] 4.2.7.2.686 Frankie as Professio [phone] [address] One 2021-04-30 2021-04-30 Outpatient R ISIAH [facility] [id number] Univers 13:15:00 13:15:00 DUSTIN pierre [facility] 2021-04-23 2021-04-23 [facility] [id number] Univers 00:00:00 00:00:00 ARNDALL pierre [facility] 2021-04-14 2021-04-14 Rohith [facility] 1.2.840.114 [id number] Univers 00:00:00 00:00:00 [facility] 350.1.13.10 it y of [place] 4.2.7.2.686 Frankie as Professio [phone] [address] One 2021-04-03 2021-04-03 Hammad Sunsoy 1.2.840.114 [id number] Univers 00:00:00 00:00:00 Management , Mary Draper 350.1.13.10 ity of [place]2.7.2.686 [place] [phone] [address] 2021-03-26 2021-03-26 Rohith [facility] 1.2.840.114 [id number] Univers 00:00:00 00:00:00 [facility] 350.1.13.10 it y of [place] 4.2.7.2.686 Frankie as Professio [phone] [address] One 2021-03-26 2021-03-26 Rohith [facility] 1.2.840.114 [id number] 00:00:00 00:00:00 [facility] 350.1.13.10 [place] 4.2.7.2.686 Professio [phone] 2021-03-25 2021-03-25 Rohtih [facility] 1.2.840.114 [id number] Univers 00:00:00 00:00:00 [facility] 350.1.13.10 it y of [place] 4.2.7.2.686 Frankie as Professio [phone] [address] 2021-03-25 2021-03-25 Rohith [facility] 1.2.840.114 [id number] 00:00:00 00:00:00 [facility] 350.1.13.10 [place] 4.2.7.2.686 Professio [phone] [address] 2021-03-18 2021-03-18 Gala [facility] 1.2.617.594 [id number] Univers 00:00:00 00:00:00 Randall Lee 350.1.13.10 i ty of [place] 4.2.7.2.686 [place] Profess[place] [phone] [address] 2021-03-18 2021-03-18 Gala [facility] 1.2.142.692 [id number] 00:00:00 00:00:00 Randall [facility] 350.1.13.10 [place] 4.2.7.2.686 Professio [phone] [address] 2021-03-13 2021-03-13 Gala [facility] 1.2.217.123 [id number] Univers 00:00:00 00:00:00 [facility] 350.1.13.10 it y of [place] 4.2.7.2.686 Frankie as Professio [phone] [address] 2021-03-13 2021-03-13 Gala [facility] 1.2.662.549 [id number] 00:00:00 00:00:00 [facility] 350.1.13.10 [place] 4.2.7.2.686 Professio [phone] nal [facility] Office Building One 2021-03-10 2021-03-10 Outpatient R TATO [facility] [id number] Univers 12:00:00 12:00:00 AMANDA ithenri of [facility] 2021-03-10 2021-03-10 Urgent Provider, [facility] 1.2.840.114 [id number] Univers 11:16:36 11:36:36 Care Tato Amanda [facility] 350.1.13.10 ity of [place] 4.2.7.2.686 Frankie as Professio [phone] [address] Office [facility] One 2021-03-10 2021-03-10 Refill [facility] 1.2.840.114 [id number] Univers 00:00:00 00:00:00 [facility] 350.1.13.10 it y of [place] 4.2.7.2.686 Frankie as Professio [phone] [address] Office [facility] One 2021-02-25 2021-02-25 Telephone [facility] 1.2.685.442 [id number] Univers 00:00:00 00:00:00 [facility] 350.1.13.10 it y of [place] 4.2.7.2.686 Frankie as Professio [phone] [address] Office [facility] One 2021-02-20 2021-02-20 Refill [facility] 1.2.840.114 [id number] Univers 00:00:00 00:00:00 [facility] 350.1.13.10 it y of [place] 4.2.7.2.686 Frankie as Professio [phone] [address] Office Building One 2021-02-12 2021-02-12 Office [facility] 1.2.840.114 [id number] Univers 09:00:39 09:22:35 Visit [facility] 350.1.13.10 it y of [place] 4.2.7.2.686 Frankie as Professio [phone] [address] Office [facility] One 2021-02-12 2021-02-12 Outpatient R JAZIEL [facility] [id number] Univers 09:00:00 09:00:00 RANDALL henri [facility] 2021-02-12 2021-02-12 Orders Doctor OLGA 1.2.840.114 [id number] Univers 00:00:00 00:00:00 Only Unassigned, STEVE 350.1.13.10 ity of [place] [facility] 4.2.7.2.686 Frankie as [phone] [address] 2021-02-10 2021-02-10 Refmaddie [facility] 1.2.840.114 [id number] Univers 00:00:00 00:00:00 [facility] 350.1.13.10 it y of [place] 4.2.7.2.686 Frankie as Professio [phone] [address] Office [facility] One 2021-01-06 2021-01-06 Telephone [facility] 1.2.597.691 [id number] Univers 00:00:00 00:00:00 [facility] 350.1.13.10 it y of [place] 4.2.7.2.686 Frankie as Professio [phone] [address] One 2021-01-06 2021-01-06 Telephone [facility] 1.2.971.404 [id number] Univers 00:00:00 00:00:00 [facility] 350.1.13.10 it y of [place] 4.2.7.2.686 Frankie as Professio [phone] [address] Office [facility] One 2021-01-01 2021-01-01 Outpatient R JAYDON [facility] [id number] Univers 15:20:00 15:20:00 PABLO [facility] 2020-12-31 2020-12-31 Outpatient R JAYDON [facility] [id number] Univers 15:50:00 15:50:00 PABLO [facility] 2020-12-12 2020-12-12 Refmaddie [facility] 1.2.840.114 [id number] Univers 00:00:00 00:00:00 [facility] 350.1.13.10 it y of [place] 4.2.7.2.686 Frankie as Professio [phone] [facility] nal [address] [place] [address] One 2020-12-11 2020-12-11 Refmaddie [facility] 1.2.840.114 [id number] Univers 00:00:00 00:00:00 [facility] 350.1.13.10 it y of [place] 4.2.7.2.686 Frankie as Professio [phone] [address] One 2020-12-03 2020-12-03 Outpatient R JAYDON [facility] [id number] Univers 15:50:00 15:50:00 PABLO [facility] 2020-11-13 2020-11-13 Office [facility] 1.2.840.114 [id number] Univers 08:46:00 09:20:33 Visit [facility] 350.1.13.10 it y of [place] 4.2.7.2.686 Frankie as Professio [phone] [address] One 2020-11-13 2020-11-13 Outpatient R JAZIEL [facility] [id number] Univers 09:00:00 09:00:00 RANDALL [facility] 2020-11-11 2020-11-11 Refmaddie [facility] 1.2.840.114 [id number] Univers 00:00:00 00:00:00 Randall Lee 350.1.13.10 i ty of [place] 4.2.7.2.686 [place] [phone] [address] 2020-10-10 2020-10-10 Telephone [facility] 1.2.659.718 [id number] Univers 00:00:00 00:00:00 [facility] 350.1.13.10 it y of [place] 4.2.7.2.686 Frankie as Professio [phone] [address] Office [facility] One 2020-10-10 2020-10-10 Judith [facility] 1.2.840.114 [id number] Univers 00:00:00 00:00:00 (Out) [facility] 350.1.13.10 it y of [place] 4.2.7.2.686 Frankie as Professio [phone] [place] dical nal 044 [place] Office [facility] One 2020-10-10 2020-10-10 Refmaddie [facility] 1.2.840.114 [id number] Univers 00:00:00 00:00:00 [facility] 350.1.13.10 it y of [place] 4.2.7.2.686 Frankie as Professio [phone] [place] dical nal 044 [place] Office [facility] One 2020-10-09 2020-10-09 [facility] 1.2.840.114 [id number] Univers 00:00:00 00:00:00 [facility] 350.1.13.10 it y of [place] 4.2.7.2.686 Frankie as Professio [phone] [place] dical nal 044 [place] Office [facility] One 2020-10-08 2020-10-08 [facility] [facility] 1.2.840.114 [id number] Univers 00:00:00 00:00:00 [facility] 350.1.13.10 it y of [place] [id number] Frankie as Professio [phone] [place] 044 [place] [facility] 2020-10-04 2020-10-04 [facility] [id number] Univers 11:15:00 11:15:00 PLACIDO [facility] 2020-10-04 2020-10-04 Office Ced [facility] [id number] Univers 09:57:57 10:50:32 [facility] [id number] it y of Surgical [id number] Frankie as Specialti [phone] [place] 198 [facility] 2020-09-11 2020-09-11 Refmaddie [facility] [id number] Univers 00:00:00 00:00:00 [facility] [id number] it y [place] [id number] Frankie as Professio [phone] [place] 044 [facility] 2020-09-02 2020-09-02 Ref[facility] [id number] Univers 00:00:00 00:00:00 [facility] [id number] it y of [place] [id number] Frankie as Professio [phone] [place] 044 [facility] 2020-08-26 2020-08-26 [facility] [id number] Univers 13:30:00 13:30:00 MOE [facility] 2020-08-15 2020-08-15 Office [facility] [id number] Univers 09:59:04 10:14:04 Visit [facility] [id number] it y of Surgical [id number] Frankie as Specialti [phone] [place] 198 [facility] 2020-08-15 2020-08-15 [facility] [id number] Univers 10:00:00 10:00:00 [place] [facility] 2020-08-13 2020-08-13 Telephone [facility] [id number] Univers 00:00:00 00:00:00 [facility] [id number] it y of Surgical [id number] Frankie as Specialti [phone] [place] dical [place] 198 [facility] 2020-08-12 2020-08-12 Office [facility] 1.2.840.114 [id number] Univers 09:06:31 09:21:31 Visit [facility] [id number] it y of [place] [id number] [place]ie as Professio [phone] [place] dical [place]al 044 [facility] 2020-08-12 2020-08-12 [facility] [id number] Univers 09:00:00 09:00:00 RANDALL [facility] 2020-08-08 2020-08-08 Office [facility] [id number] Univers 14:52:25 15:06:19 Visit Placido Mir [id number] it y of Surgical 4.2.7.2.686 [place]ie as Specialti [phone] [place] dical es 198 [facility] 2020-08-08 2020-08-08 Outpatient [facility] [id number] Univers 15:00:00 15:00:00 PLACIDO pierre [facility] 2020-08-05 2020-08-05 Emergency [facility] 1.2.842.597 [id number] Univers 15:02:00 17:02:00 Brigida Leona Lee 350.1.13.10 i ty [place] [phone] [facility] 084 [place] 2020-08-05 2020-08-05 Orders Doctor OLGA 1.2.840.114 [id number] Univers 00:00:00 00:00:00 Only Unassigned, STEVE [id number] ity of [place] [facility] 4.2.7.2.686 Frankie as [phone] [facility] 009 [place] 2020-08-01 2020-08-01 Office [facility] 1.2.724.165 [id number] Univers 14:43:38 16:10:03 Visit Almita Lee [id number] i [id number] [phone] [place] dical [place] 188 [facility] 2020-08-01 2020-08-01 Outpatient [facility] [id number] Univers 14:30:00 14:30:00 ALMITA pierre [facility] 2020-07-29 2020-07-29 Rohith [facility] 1.2.840.114 [id number] Univers 00:00:00 00:00:00 Randall Clarke 350.1.13.10 it y of [place] [id number] [place]ie as Professio [phone] [place] 044 [place] [facility] 2020-07-23 2020-07-23 Outpatient [facility] [id number] Univers 14:15:00 14:15:00 ALMITA [facility] 2020-07-23 2020-07-23 Rohith [facility] 1.2.840.114 [id number] Univers 00:00:00 00:00:00 [facility] [id number] it y of [place] [id number] Frankie as Professio [phone] [address] 2020-07-22 2020-07-22 Outpatient [facility] [id number] Univers 10:00:00 10:00:00 KEN [facility] 2020-07-15 2020-07-15 [facility] [place] [facility] 1.2.840.114 [id number] Univers 00:00:00 00:00:00 [facility] [id number] it y of [place] [id number] [place]ie as Professio [phone] [address] 2020-06-26 2020-06-26 Rohith [facility] 1.2.840.114 [id number] Univers 00:00:00 00:00:00 [facility] 350.1.13.10 it y of [place] 4.2.7.2.686 Frankie as Professio [phone] [address] 2020-06-25 2020-06-25 Outpatient R [facility] [id number] Univers 13:30:00 13:30:00 KWESI [facility] 2020-06-12 2020-06-12 Rohith [facility] 1.2.840.114 [id number] Univers 00:00:00 00:00:00 [facility] [id number] it y of [place] [id number] Frankie as Professio [phone] [address] 2020-06-12 2020-06-12 Gala [facility] 1.2.260.700 [id number] Univers 00:00:00 00:00:00 [facility] 350.1.13.10 it y of [place] 4.2.7.2.686 [place]ie as Professio [phone] [place] dical [place]al 044 [place] Office [facility] 2020-06-11 2020-06-11 Refill [facility] 1.2.840.114 [id number] Univers 00:00:00 00:00:00 [facility] 350.1.13.10 it y of [place] 4.2.7.2.686 [place]ie as Professio [phone] [place] dical [place]al 044 [place] Office [facility] 2020-06-05 2020-06-05 Refill [facility] 1.2.840.114 [id number] Univers 00:00:00 00:00:00 [facility] [id number] it y of [place] [id number] [place]ie as Professio [phone] [place] dical [place]al 044 [facility] 2020-05-28 2020-05-28 Telephone [facility] 1.2.681.164 [id number] Univers 00:00:00 00:00:00 Randall Rosa 350.1.13.10 i ty [place].2.7.2.[place] [phone] [place]ical [place] 044 [facility] 2020-05-13 2020-05-13 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 Jenniffer Paige Lab Main [facility] 1.2.8 40.114 [id number] Univers 14:52:09 15:07:09 Visit Randall Sheriff Rosa [id number] ity [place] [id number] [phone] [facility] nal 353 [facility] 2020-05-13 2020-05-13 Outpatient R [facility] [id number] Univers 14:30:00 14:30:00 RANDALL johnhenri [facility] 2020-05-13 2020-05-13 Office [facility] 1.2.840.114 [id number] Univers 13:57:32 14:12:32 Visit Randall Rosa 350.1.13.10 i ty [place] 4.2.7.2.686 [place] [phone] [place] dicar [address] 2020-05-09 2020-05-09 Refmaddie [facility] 1.2.840.114 [id number] Univers 00:00:00 00:00:00 [facility] 350.1.13.10 it y of [place] 4.2.7.2.686 Frankie as Professio [phone] [address] 2020-04-10 2020-04-10 Refmaddie [facility] 1.2.840.114 [id number] Univers 00:00:00 00:00:00 [facility] 350.1.13.10 it y of [place] 4.2.7.2.686 [place]ie as Professio [phone] [address] 2020-03-13 2020-03-13 Telephone [facility] 1.2.890.432 [id number] Univers 00:00:00 00:00:00 Randall Adhikariton 350.1.13.10 i ty [place] 4.2.7.2.[place] [phone] [address] 2020-03-11 2020-03-11 Refmaddie [facility] 1.2.840.114 [id number] Univers 00:00:00 00:00:00 [facility] 350.1.13.10 it y of [place] 4.2.7.2.686 Frankie as Professio [phone] [address] 2020-02-20 2020-02-20 Telemedici [facility]MIN[facility] 1.2.840.114 [id number] Univers 08:07:16 16:58:17 ne Visit Kwesi Lee 350.1.13.10 ity of [place] 4.2.7.2.686 [place] [phone] [facility] 220 [facility] 2020-02-20 2020-02-20 Outpatient R [facility] [id number] Univers 15:00:00 15:00:00 KWESI pierre [facility] 2020-02-15 2020-02-15 Outpatient [facility] [id number] Univers 07:30:00 07:30:00 RANDALL pierre [facility] 2020-02-15 2020-02-15 Telemedici [facility] 1.2.840.114 [id number] Univers 06:51:18 07:06:18 ne Visit Randall Lee 350.1.13.10 ity [place] 4.2.7.2.686 [place] [phone] [address] 2020-02-14 2020-02-14 Outpatient R [facility] [id number] Univers 07:00:00 07:00:00 RANDALL pierre [facility] 2020-02-12 2020-02-12 Refmaddie [facility] 1.2.840.114 [id number] Univers 00:00:00 00:00:00 [facility] 350.1.13.10 it y of [place] 4.2.7.2.686 Frankie as Professio [phone] [address] Office [facility] 2020-01-11 2020-01-11 Refmaddie [facility] 1.2.840.114 [id number] Univers 00:00:00 00:00:00 [facility] 350.1.13.10 it y of [place] 4.2.7.2.686 Frankie as Professio [phone] [address] Office [facility] 2019-12-28 2019-12-28 Office [facility] 1.2.840.114 [id number] Univers 09:22:44 09:56:04 Visit Randall Mir 350.1.13.10 it y of [place] 4.2.7.2.686 Frankie as Professio [phone] [address] Office [facility] 2019-12-28 2019-12-28 Outpatient [facility] [id number] Univers 09:30:00 09:30:00 RANDALL pierre [facility] 2019-12-14 2019-12-14 Refmaddie [facility] 1.2.840.114 [id number] Univers 00:00:00 00:00:00 [facility] 350.1.13.10 it y of [place] 4.2.7.2.686 Frankie as Professio [phone] [place] dical [place]al [address] [place] [address] Office [facility] 2019-12-11 2019-12-11 Telephone Jaziel [facility] 1.2.105.903 [id number] Univers 00:00:00 00:00:00 [facility] 350.1.13.10 it y of [place] 4.2.7.2.686 Frankie as Professio [phone] [place] dical [place]al [address] [place] [address] Office [facility] 2019-12-02 2019-12-02 Refmaddie [facility] 1.2.840.114 [id number] Univers 00:00:00 00:00:00 [facility] 350.1.13.10 it y of [place] 4.2.7.2.686 Frankie as Professio [phone] [place] dical [place]al [address] [place] [address] Office [facility] 2019-11-15 2019-11-15 Office [facility] 1.2.840.114 [id number] Univers 06:58:39 07:13:39 Visit [facility] 350.1.13.10 it y of [place] 4.2.7.2.686 Frankie as Professio [phone] [facility] nal [address] [place] [address] Office [facility] 2019-10-27 2019-10-27 Outpatient R [facility] [id number] Univers 09:55:58 23:59:00 [facility] ity [facility] 2019-07-20 2019-07-20 Refmaddie [facility] 1.2.840.114 [id number] Univers 00:00:00 00:00:00 [facility] 350.1.13.10 it y of [place] 4.2.7.2.686 Frankie as Professio [phone] [place] dical [place]al [address] [place] [address] Office [facility] 2019-07-04 2019-07-04 Refmaddie [facility] 1.2.840.114 [id number] Univers 00:00:00 00:00:00 [facility] 350.1.13.10 it y of [place] 4.2.7.2.686 Frankie as Professio [phone] [place] dical [place]al [address] [place] [address] Office [facility] 2019-06-28 2019-06-28 Office [facility] 1.2.840.114 [id number] Univers 09:34:17 10:06:56 Visit [facility] 350.1.13.10 it y of [place] 4.2.7.2.686 Frankie as Professio [phone] [place] m[address] One 2019-06-28 2019-06-28 Rohith [facility] 1.2.840.114 [id number] Univers 00:00:00 00:00:00 [facility] 350.1.13.10 it y of [place] 4.2.7.2.686 [place]ie as Professio [phone] [place] mary [address] One 2019-06-21 2019-06-21 Rohith [facility] 1.2.840.114 [id number] Univers 00:00:00 00:00:00 [facility] 350.1.13.10 it y of [place] 4.2.7.2.686 Frankie as Professio [phone] [address] One 2018-12-09 2018-12-09 Ambulatory nullFlavo MNA [id number] Memoria 20:45:00 20:45:00 Pre-Reg r Neurology 03 l [place] 2018-12-09 2018-12-09 Ambulatory nullFlavo MNA [id number] Memoria 20:45:00 20:45:00 Pre-Reg r Neurology 03 l [place] 2018-12-09 2018-12-09 Outpatient MHIE MHIE [id number] Memoria 14:45:00 14:45:00 03 bonnie Seay 2018-12-09 2018-12-09 Outpatient MORRIS CasianoNVJANET MISCHER [id number] 14:45:00 14:45:00 John Mcmanus 2018-07-26 2018-07-26 Outpatient MHIE MHIE [id number] Memoria 09:00:00 09:00:00 02 bonnie Seay 2018-07-26 2018-07-26 Outpatient MHIE MHIE [id number] Memoria 09:00:00 09:00:00 02 bonnie Seay 2018-04-26 2018-04-26 Outpatient MHIE MHIE [id number] Memoria 08:30:00 08:30:00 01 bonnie Seay 2018-04-26 2018-04-26 [id number] Memoria 08:30:00 08:30:00 01 l [place] 2018-04-04 2018-04-05 Day nullFlavo [facility] [id number] Memoria 17:57:00 04:59:00 Surgery r [place] 02 l Orthopedic [facility] 2018-04-04 2018-04-05 Day nullFlavo [facility] [id number] Memoria 17:57:00 04:59:00 Surgery r [place] 02 l Orthopedic [facility] 2018-04-04 2018-04-04 Outpatient Kimberly Ng [facility] [id number] 12:57:00 23:59:00 Han 2018-03-30 2018-03-30 Outpatient LETA LORENZO [id number] Memoria 13:30:00 13:30:00 00 l [place] 2018-03-30 2018-03-30 Outpatient LETA GILLETTE [id number] Memoria 13:30:00 13:30:00 00 l [place] 2018-03-21 2018-03-22 Day nullFlavo [facility] [id number] Memoria 19:01:00 04:59:00 Surgery r [place] 01 l Orthopedic [facility] 2018-03-21 2018-03-22 Day nullFlavo [facility] [id number] Memoria 19:01:00 04:59:00 Surgery r [place] 01 l Orthopedic [facility] 2018-03-21 2018-03-21 Outpatient Kimberly Ng [facility] [id number] 14:01:00 23:59:00 Han 2015-11-08 2015-11-08 Bedded nullFlavo [facility] [id number] Memoria 18:06:00 21:20:00 Outpatient r Dawood 00 l [place] 2015-11-08 2015-11-08 Bedded nullFlavo [facility] [id number] Memoria 18:06:00 21:20:00 Outpatient r Dawood 00 l [place] 2015-11-08 2015-11-08 [facility] [id number] 12:06:00 15:20:[address] [place] [address] 2015-10-24 2015-10-25 Outpt Diag nullFlavo [facility] [id number] Memoria 15:50:00 05:59:00 Services r Outpatient 00 l Imaging [place] 2015-10-24 2015-10-25 Outpt Diag nullFlavo [facility] [id number] Memoria 15:50:00 05:59:00 Services r Outpatient 00 l Imaging [place] 2015-10-24 2015-10-24 Outpatient Guerrero, MHOIP RUST [id number] 09:50:00 23:59:00 Sheilendra 00 [facility] Results Test Description Test Time Test Comments Results Result Comments Source POCT MOLECULAR FLU 2022-08-25 16:06:41 Test Item Value Reference Range Interpretation Comme nts POCT Molecular FluA (test code = 44208-1) Negative Negative POCT Molecular FluB (test code = 71436-5) Negative Negative Lab Interpretation (test code = 43380-1) [facility] [id number] 16:06:41 Test Item Value Reference Range Interpretation Comments POCT Molecular FluA (test code = Negative Negative 12865-5) POCT Molecular FluB (test code = Negative Negative 34436-9) Lab Interpretation (test code = Normal 82355-9) [facility] [place] [id number] 16:19:00Reason for Exam:->Morbid (severe) obesity due to excess calories [facility] : 1965 Sex: FFINAL REPORT [facility] WITH KUB CLINICAL HISTORY: Morbid (severe) obesity due toexcess calories COMPARISON: None. TECHNIQUE: A snout puller abdominal radiograph is acquired. The esophagus, stomach, and proximal small bowel are evaluated with single contrast technique after oral ingestionof thick and thin barium using real-time fluoroscopy and acquisition of multiple spot digital radiographs. Patient could not tolerate gas granules, could not perform double contrast technique. Fluoro Time: 1.4 minutesReference air kerma: 125 mGy FINDINGS: Lead Inspector radiograph findings: Normal bowel gas pattern. Esophageal [...] unremarkable single contrast upper GI. Signed: Anika Gavin MDReport Verified Date/Time: 07/28/2022 16:19:45 Tissue Exam 2022-01-12 18:24:44 Test Item Value Reference Range Interpretation Comments Case Report (test code Surgical Pathology = 104) Report Case: [id number] Authorizing Provider: Charo Wise MD Collected: 01/09/2022 11:31 AM Ordering Location: [facility] Endoscopy Received: 01/09/2022 03:51 PM Services Pathologist: Evelin Wharton MD Specimens: A) - Polyp, Colon - Right/Ascending, ascending colon polyp B) - Polyp, Colon - Sigmoid, sigmoid polyp C) - Biopsy, Gastric, random gastric bx DIAGNOSIS (test code = [id number] 3220) FuZzEwMzNcZnRuYmpcdWMx IHtccnRmMVxlcGljOTYwMV weiuZpAOZcqGJnC9Ymywif ZLswWG6oMR2jyMxonWUlkU HpHJVcDjNmu5hdd934zQEt h5hcRRSEqnlliVu4qFoiY8 2qv2Y8UdftO05teVDfEVW9 MLOmMWSkiATbNYIvOMU5VU KirRPkH1rsQHDbWP1eyylg MQneKDkqPXOowIU4ALFxlY CsI5AhIDBhKMkrTSSqrfi2 WwKjZa3htQCdbLveLUwtLC FdCQWhTNvqPQLuKkYnPC3g G27QO24kDCHAT3zVN6ZXS8 JWIIcSIzljCI2AIJBGU0FX JZo5WMUhjbm1HMDbWSSABN ODLJNZEGWHRY1MTQVolMHj XTOducLOJpKIL0oZNicjK5 hQES5JUZybNF9HOACVH9MD BGz7HRCswlc3QJBmNLVQHM UVGJCDJJNHBM9GOBMrFVKo hspxQOOnRn2jA9MCNHEZVY diT8qMUZBUE1OcT9GCO7qV JRVBISMAYN9CF0zfsPGvWZ RhYiAtIFJFQUNUSVZFIEdB Y1GTD4PIYVlPZEJzvap8OS PyPSFXZIkVZEaQDG5YQ50D TUEYMNQVMB2OVNCEPZhFYY 9HSUMgQUxURVJBVElPTlxw UJOeoAVrVJ4kHmNZPIVAJe YaOf8ZJRmPDNgMM7NOZ1UV RiORVLTDT15ES5XKNCGRMw GIEsONV0PDIW0KIZNEXUsD G3kiFLU8y4kqcHZwWZSskU UxODAwMFxhbnNpXGRlZmxh raiePWXxCMV0gsBbHUKxXL nmBCTvPLzvKq1pkOEgfWqy RdCwWZJyr3efmcEZyurwjY l7f9jnYJDoLfL6vUWdGAkx Q1lisfTtqXAuAJApVHp9rY 59HGYesQ8kyPNdNLgyrtEy PuF0BNkxCVIfBwU5LYAvtP RgRUEhK5shXMKxXPduAFAb ABqtcGGuZFX3wSlkz6L0dZ VzaGVldHtcZjBcZnMyMiBO e0BdJSu0xEfaQ9IxXGSuNl E9qRUaCNVzLCyoIJSwCNUx gwI3hF21WRkaftA9eHQrh5 Lix62oo223yD4dwBGfIJZ1 TBZgJZEaxFBrYLUoXGB5FK HkpZGiP0dwGDRvYB9jkdsc DYwpZPcmUXTnwYB0LNDthH JeU5FbJQTdXJluQPEbmhh9 LkNsEu7gbJJqvZdbQSawj8 iar9dykNYmYme6UWXqNjTs PwtoGSdsm8Chu2pfUJSiyh 0xRMT7mBSamPcld4X4cMFe HBPbhRUyLBIbZY2hdQZnGZ JbyO6kicldRTNpNwTevxug DRScfDqdbzOzVi1gxExfBA L2KNfsF5tkfS9rTwG3WLhi A2mhvK6nYWs8YNyvJNKikJ M6crL0DIYfrQPcB8HklF9h QBIfSO0hhlr0f5wfRKW5TV mtWQNuCzJ4emY9MXAcfFWq RKDmdGfqBJhnm071EMX5Fa NiPTDjx4ZeM2FxmKokJ21g vDqaH50eJZNzhOehqL3orL shiZ6uZwUwVpGjRYinwTdk NR8jEQRfO6iekENgNCDeJZ EsM3snRiRhsE3ocWjdNPcu zpTiGTRzShb4IRWkvYZfIC XqMak6ROUgKXByY78hipuh XIV3lF6ll2gpl9DpRCaeSO I4ALNfy11iVWfiwqD9NRme Iy06VSuvPXE3SEkgORD9qI == CPT Code(s) (test code c9lpvDNxGXVyiFE9XvIlVK = 3357) Egv7jfc3KwsEStgMLoGErf uFItyiAuls26bMC7lA30GJ 7wIYBxChQ7RBThrpP5Tfr6 JRAbGKXtkBAyR452t4cms4 tyqbUghXV3eWenMLTwbhxp YrA5IJylQNSitkheMZp6MH itZCWsiQK6EUJqlPOjB5Wc UIWwDC5uhhg3BHT2TCwfWD OlUmW9BHNzvVQlFWPmfHnu ZDpng388OGI9LfDzERAbfh UeiRjtvC1aLlBjJKW7UBPp NVgzXHBhcn0= CLINICAL HISTORY (test o6dtnXXsOSIbjHK4DsDhYK code = 3242) Yqy6eqd9CrbOIohCBpMDzh nSEppxWomx81bBJ0uE42EY 3yHWBjCpK4YMCiqpN8Wwa6 EXBfYRJbnSKtT870e2jwv6 suflTfaYN8uEzvUKIzxctj WxL0WPksGTGzroirQPm5TH xxGFNjqBG3TJSrbQPbS8Kz OOWyJB7ysxl5FLF3CTmjOV NwAqF8NOFifLXgSSOusVxl OXknf469KGU4MtLwSXYeef XmdIikoK6aFdLbYNCMGFH6 mz2ga74rfAZiVNRgOEKmTm j0iDVoxSFgMBBoGBNzf4v3 yELxUxCcw2tlavfgVLD0 SPECIMEN SOURCE (test w2dtpZHxDGWtnAV5DtAbXX code = 7687) Qdj9xdd8DexSHooLCyIRqq bRLyeyJbdh19iRP2sU11RP 8pSAMaKbF3AZUuwcZ8Cug6 NXExHTZytENyZ441e6zdq1 ijbmRoxFP6oTjlOITujtxm MdV9HFsiQIHkgmtdCKv9TL qlKNNpvMG8REIghQYoR4Oa VISnQM3qxct8HIY1DAavNW TwHzV0ZXRokGOhTJCwxSkt AAziw372LOS3EeCzADZeyt NruYrepQ4qZgPkLWRGJbCv UT8ozKVgRLRstD2jRLUbR8 j0P2IgG3UcVXcpX0pjnR2g QZGpROBFq1d2nVwxZ65sw1 2tw1apcX1lULmuiZ0kLSQv UCLYiV2yu2iwKCmbu0WynX MsIHJhbmRvbVxwYXJ9 GROSS DESCRIPTION (test j9nduDCsAGHaqQYeBpSuHS code = 3366) BoFLDoe2xiWHBagMLuOeZp MzNcZnRuYmpcdWMxXGRlZm Rst8kiw432rTUrd1nyFTQM wvpfyRo1s8zeFTZoPpC9nV EtDIhtA1nwdkCfnZOiHIFj KKc2kT71JGShvV3gpUMqII tqlqRrNwX6RIjxDAEeWnT3 SSShiRWsBWEsL2qhBJZsFE jrEDSeFSsrcOKrSUT3rYsq x4E8tELtaEJnmQnbVdCfSv KlZPVUf3MhKZr1dXspE7Bg SOQpMcI6kPQoXPQeAIauPD NuYEFxuxA7dQ33ZAqtupJ7 yPYtk4Smg69us932lR8dwL NaWML4LFAaGYSdpAYuNFCj ZLP3TFEslJMnD4e2OzZwuD XbM4Z2IjSoeFLuE8O0QqMc xYWpU9O6OkJcgVJcXANyjH PeNh8frHOmnRQwra2stp71 WCR3r5VfaDbsQOR4VOD8Ar YcIb9gwWPhFFOkCYEpkOOh XACmIO3bfCDlTIOqwC7bxr xjXHBnYnJkcmhlYWRccGdi kiRsQd4eaJszBHA6EHbwQ3 ebbB3mCeW0LApwJ3wnqH7q TQi8OGynbQT6XAJnyR8bCL 8tunwag0igEwIiVN1szbai d1woNpMrEQ4rpdw0y1abTc HnWC1qzngmt5cmPwIrMPml PPQqirxbUTXnk8AodveqHT Qca9TeW4OtkAheQ82txWhm T23nIXRefRddmK1ucEzfdR 5cZjBcZnMyNFxwYXJkXHBs YWluXGYxXGZzMjBcbGFuZz EwMzNcaGljaFxmMVxkYmNo OBVvQPvzR5cqWqMfEbZyLW BBLiBSZWNlaXZlZCBpbiBm h7MoUVjpekSuXFZedPYcGH dpdGggdGhlIHBhdGllbnRc R7P5tzQyRM1yMIQrSTYfB2 RvFBRhU20kDEHyyH8wBOSq WO7tPIXah2CwdqMpruyaI7 5io09lcU7kmSFcPNZiEPQs o02cfFE8ilLgRyFlVBOiTT DfOP7mHVNgbiMhc6L6DQWh b0M0UNVlZYWxdDWbdeelHL 16RCaaVH13IHnnUS5cROAo KlEGoAWxr8IqF7drTC5vfL Uut4EewIx5fANsMTbmTIEw jN0zrK5pWJGkKInrzkPqyX luZSBCLiBSZWNlaXZlZCBp szAjr0ExTKwbojAnZRHxbI VkIHdpdGggdGhlIHBhdGll erVlU6L5agElOA2nCQUbTW EdT7KlLRGdL81oPOOdgN1r TYTlOZ1dNRHjlKhys9fsVS YziC1gETOphNtlMmHpddYt C56iv7tzfFQrc2SiRyYjkW MtQZLsr3SuvGCqUQQafwfd r22aeZR8gLHmlLPxdkWpJ2 qjZcOoaxXazOieAWCzr44x FZ06KXtaAA1wSUsiRY7lLM HiENQhTADiUXV7UOMuSoF8 IDAuMiBjbSBhbmQgbWVhc3 RnlW5eFEAsKpV8VAFqKwP4 VJEyAfXihKUdozXcP3kfHL aecNItUKYiYEJafGQizK2m ucRmcoVxoDZnkWI8JKVogM 1mwM90wkQvsbPCJL0hvQes IPoamR2lBTYzPIBjM4Cebo EdMUskILKpvi9ynLtqXOnn PfQkBLZob4y6iMX3uEKplC C1gHUnoHbcBxKmRG7fcTOd RB6pOQbnLOjyrzTvn6RtMH 66bTDflkUuhwEuEqpnd8Ro tRSxDkbxHHGnPZQzw91byK Z9wyJuUuU5SMAkGPEwwnKu LlU8JM1hfKnrfkVbj6C2ZX Qln0D4JUJpCB7ofG5iMFxe IHNpemUgZnJvbSAwLjMgeC ReBuMtiWWvSbJlD01jaG0a BF26LAzcSV1jZSxlHL1aHM NtIGFuZCBtZWFzdXJpbmcg DL8aLTfcNI24ZMmeXK9jGS WoWNhgKRCiX0XtS5R6YL2m VGhlIHNwZWNpbWVuIGlzIH O6Bn1hcFOhADAjmfX9y6Il SPduYBIkWyuirX9nTNqmut GcX6nKIAMngm0= MICROSCOPIC DESCRIPTION t1bqhRXvOCKeeCU2XjWjBR (test code = 3371) Ian3zvc6QpbSXpxJUoXLem xBCtdcDabc40rOA4zS52FD 9xPBRoKkG9FOGeuqP0Red7 BLXtMIFobMZiM896a6deg5 nkgvFunDM5hCarWHXrcvcz HhF0QNgqXSGwkbpsHSg0QX maXLMefHH1ZENxaGRhW2Uv YWRyGX0gqbm8NEJ3RXxrXU ZjKmY1ODCuoRLrCRKnqZvx LRros235YBG7HcLxCZGjao FvfOyoqH6rSiDrNRUSQEXh KA9wYWobS3ryS6IjOFHoJY iutHtqx6bjMZ2sME2jpHql fzNlI8jgiKDldMHxuoZbTo xcWO6pLTIfjdvvMUPaBb4c Pd3qa4rlfauyuVWuhiYbqW 8wbXFjeUJ4gK8nFYCtvgIn a1GmecJzGB4maLGvfPWgfY GgOKI9m9AvYCUbUQTkrdPu CAihV43nmbC2YLmyLTHoCC 8iHM4tNEbrvUfhs8ZsW3Pz dhDrxFXgf04rB7KpuBNcmz CdziBmm6YdwlKtbcDjo6O6 gO6yXTV7SLiawm0hHAboIF J9 [facility] [id number] 18:24:44 Test Item Value Reference Range Interpretation Comments Case Report (test code Surgical Pathology = 104) Report Case: [id number] Authorizing Provider: Charo Wise MD Collected: 01/09/2022 11:31 AM Ordering Location: [facility] Endoscopy Received: 01/09/2022 03:51 PM Services Pathologist: Evelin Wharton MD Specimens: A) - Polyp, Colon - Right/Ascending, ascending colon polyp B) - Polyp, Colon - Sigmoid, sigmoid polyp C) - Biopsy, Gastric, random gastric bx DIAGNOSIS (test code = [id number]) FuZzEwMzNcZnRuYmpcdWMx IHtccnRmMVxlcGljOTYwMV xhxmZnRIGrhUVnO6Wwqptz CTrzEJ7qGS8puYydhYBvxQ JyHNVlKiLke3ihu513dNAt s5wrPQQGqvdtwWx2zMcgA8 1hq0L4XomuJ03dmGZoGUN1 RNHaIQDecLSuRVBaCBB7QI TjmSCtF4mfHQTpXN1yliiw DCabTHieQUGrqSM8KSNupC FjO3FiBZOwNDtqBQHsffd9 XbWrWk2jxFYupXwsLWxwQH PxIEIqTGktSNXsUyQkWO2x I11SK66dEYLOG0uBH6YJT2 SBFCcZZtyaNV0KAMHIF5YK CYc0JLFoobb4KAQySACZLO JLMEGKKWICLH5NUDSvvIMw TZAeybKJCjVXC9gAMzmhD8 sTWE2HPVgzEO2BJPZNR6VK OEl2LRNkgkh7HAEsICUQHI ABQZRKGAMDEA5MTVKqNEUl qwcuRXRiGv4fK6UZMBADQC olI4eTFREOZ5KgI3AFY3bJ ZTMJPTGHJN4WK3llmPDxEA RhYiAtIFJFQUNUSVZFIEdB C5GIJ6HEGUtJCBNobxq6VB IkKMQDQSaWVRjMWV7ZB54J KUDWCGTOSH1NDCWWUMzULX 9HSUMgQUxURVJBVElPTlxw SCHciARmVX6kRxBLTYFDKw AhBf7IBKtILArAO1ECT9YQ KxMDQJANU23ER7OWZHHWHr IDLaIUO0SXWU0XNNAWMFdG S9kyZRT8o5uzmRIeUZMehI UxODAwMFxhbnNpXGRlZmxh dzkvKIRsYIP6kkXmMTRpHG axFCJfQYrlYs0fvGQalOqj FuNdCYFlr4upveJLwbumoR w3w4whUKIoYhM0iPYfUVua O6ahvcEcbOUjOSIwJHc1eZ 91WDNfjT6yqFPmSVrfffUs WmW5TAikBQSwBhN9SPHxkX BvORLbW9jkGCEwMYwaRVHx WXazqMVvIQA4nChzn3F2tW VzaGVldHtcZjBcZnMyMiBO s8QdDQr3fGfaV4ZyGQJxFs B6fDHkOVIrJFlwRITuLQOp wsV7aS56FAqmmvE3qMPcv8 Kng48fy385bJ3reUVdIVA1 HERnOAQzfNUrLCWsTTR5RK AwuHHjG9epDSAhFF9txnih YGxyFCjxKHOzaEM2IGQoqG XvJ0FwNWGqRNubVNQiwls6 PhRsCo5gbSZssRpmQRsaq6 hhq2rejRFdZbr6VYNcGiUe LslcBDedq7Fci1lhZUTiab 0gSEF9jBZfyZzqm2B1sOUo PXRfeKZgJRLwAO5enHIeDO NfwE9hmdwbAOBhPqYmmhof RIVnmItwshTcZs7xtNtqPU E8ICgpO7ysmB2bPfW7NNre K7okdI0wTIx0PSmeERRqwQ P8rjM7DYXquMEkZ0BftK0c GCOxIX7jocw8d6zdIYA2YD agHSCmGzH8cbB4MECbiQCw UMCldCyrBIqhy057ZFF8Zd EqSSRih3CeN3LxrLwoJ84j gBzeX26eIBHfbBejuQ3miD kykE6rIsGeRxGqWKsbvFir ZF6gCUSrB8gceXWqEERoJW XyG1moZhBkaK6ysPbmCCss otRhVDCxEpa8XNNfyVNgDF QhJln0TJMsEWBkM83sbwgu KNV5cW5qm8ges4QiPLxhMU V2BDGqe82aZYtabgJ4WDax Qh29QKwtRDJ2CMezOKD1jF == CPT Code(s) (test code e6hexPFnBIKcbLP8ToUjMJ = 3357) Ovi9wrn7YoaYZstBHjXKow aGJchjNznf41kAZ6qC50YU 7mFJJpIqT8NRGdtvP8Qru2 AMTlJAGykXHuE164c4yna0 mptaBitKZ7xFtrNTFwelfl TuU2TKyhLDCxonnkYMn3KY fyEHWydCY0WCQhoZPhJ6Ag GAYtWB8lozm7LDV0THqfJP RjMxZ4QXBglXZyYSSrwInc VEmjj472VNC4RcRsDYNbwh WifQesjF1aAqCrUPI2VJIn NVgzXHBhcn0= CLINICAL HISTORY (test d1rgtMEjBWAkrIP4VqKxAG code = 3356) Mkk6dwd0NazKYseBJgXJls sMAdcaCapt15oYD8sP89TX 3vJUQvRqI3ZLVrhvA0Ieb4 YBUoTXIpxWHdC867a7fxe5 xaxhFwxPL2nManGGWinece QnW5GMrkLJRsuuxdWIk5VN qePZJolDB6MGAcnNGfP5Fd BYBuIN1ewpl4TON6GEzzEW WeMaI8QPFetFNhVYKbeJyl EQmlb310VMD3YgHtQHYuks FeeHdgqZ3nJxPxSWCGZSA8 ac2fu39kzTAcPZBnEDSqZa j5rFXdvHPlQIIsFZQro5s7 zBUbDlSxv0tmvftaKBQ0 SPECIMEN SOURCE (test y9uwlOZmUAZkeZO6SqFbHC code = 3377) Ekj2veo6QhtMTnrADoXWbi oMIfreIyqs39rUY3tE33FT 0wUGOjKpE5TUIeqkK0Khl7 SFJwJOWskQDpG059f4pad4 wstcIayED5nPgxZHQhgnsi LgM4XJjiWUEzvctvHQj1VB ppAHBvuMT5OOAejYMtG9Ok IRAmQS3hckw5EHM8SAfmYV NnZnL6VJBkjFYaWTTcnVvb XZopl930PMT8YyXoGRSnch LxvRpqpX1xHvOiIFNMXvRz HS3cyVXcERJeqA4aZAYpB7 z7J1RgJ9GbZCnuS0hhyQ5o LQBbZETCw6n7jMwjP37ny2 6ms8lspL8kEHrprX2eLKTb GDWUhR5hq0brGJbmw6IyiV MsIHJhbmRvbVxwYXJ9 GROSS DESCRIPTION (test l5czdGMmPJZwmTGvKwAwNR code = 3366) MkYAUpe9psOPAniKAmWfPh MzNcZnRuYmpcdWMxXGRlZm Hag8gxi090rYKvq3kvFCFQ yjracAu0n2aiYYAjOiF6sB UcIAyzP1xwgmZsyOZqTGBe RGf3rK38UWHssU1auQPjHQ wogrRnWiQ8MYchIICnJiT1 LFMuzOHaHTVwG1ofWIAvTB jtYHLiUIbtsPWkWXV3tVbq b7M7cHGseCDywOorIvJzAx DkCHXMx9TkGMr8gDcnQ5Ui GIOmXdD0bBMnRCQvEPrvXH WlUEPqunM9uW13OHapnnT8 hPXii0Kji76rv826vT1caR RgPIH7BLGfGBZbjHRnUFHq SLS3JNWpwYMuB2i2PeXjpP AtN5G3DcPiwJQdS2R5HcXs pUIvV4C4ViVpcGTcAKFhoD XxSv9alDMrdZQmpv4whc05 ESA5l9OoeSxkLVG7XRN1Kc FtUp6quIDzMILfCIQnmXOl WZRqCH4loSTnYMBwcZ9gbo xjXHBnYnJkcmhlYWRccGdi rgTfKm7feHbgLEG8LRabP1 dmkG6uAlE7TSyvF8aodT0y GYs4CHjbvJW3QAZryQ3fRV 0bdvkod8hhMqBlHX0prhai d9pcHgOvTJ3iirk0o4vjCf JzRO2yuxxuh3nfLdDeBCgh KYRhyoerJIQls1GboyfbTT Hdp6MlW5KaqAwyI21vrZnl J58iDSPmdClfpC8liRjayS 5cZjBcZnMyNFxwYXJkXHBs YWluXGYxXGZzMjBcbGFuZz EwMzNcaGljaFxmMVxkYmNo VSWpUMulE1hzXmCrBnXtLU BBLiBSZWNlaXZlZCBpbiBm b7XeUXaqvoFzXZKfcOVxQW dpdGggdGhlIHBhdGllbnRc L4F7auQsYO6aLKHmWWVrZ8 VpWDWhD10jDWZbvC9pCZAm LV9rKZAna6XlzqMrqqqeN3 0fg21naH0heYTiHVMaEPTl i54ovWQ8iuVjCcCwTGPmFS ApDZ6mOMVftvEgl1L1AQWn r6N6PAMpOURojAZcaqdkWW 98OMjpRL00VZqqAV8yMOGa DdXNoZIbd0KtX3guTC7tzC Laj0GdzLe7aNDlBJhnCQAu nT8izE7vCWIwNFbtykUlxI luZSBCLiBSZWNlaXZlZCBp xqRur9LwATafqvDzAYPghI VkIHdpdGggdGhlIHBhdGll klNmR1P1sdXfRR2rFQOhBT IfI8UmBQQcO78eFNDdoY4j BWStYP8cBQVwkCdlz3fbZY PgrF1yVZBclXnuNtJosgYi E19ml5zruBAzo7XlTpIhmX AbVMUjx2TouYFyCFEesdxf q64fuEE4rHOsfIIcqkHpD7 xjSyKqjlStgQsvHLVxn13g RX17YEprQB6yFArsJB1yTF SkGSMgIEIzELH7LTExXdB0 IDAuMiBjbSBhbmQgbWVhc3 UijU2oOXWzJdJ6LSIkEhT0 DDNoYcRwdTYqslJcT1rlZK rktVFlUKFpJTAvpCSkrP8m ffOyqoPmvZErpED2CNEanR 0kdR04ldSikdWFHH4acEkh KHbmeH8gZGQuHIHiW0Gzac NyQPgeSICsmp9hbYxeFGga YcRuKRKwt1e8wFQ9lMHviI R8cOZswTcdZbEbHW7xlQQm JL9uIIkwPQzmonTuh4TfXZ 96jSLhirLydfLoHcexl7Px iBGqIotvBMRdDSWcz30emD M1smBaVaI0ITDqYJOnxdFn OmC4DH9rxRutwsXnx6A5VZ Ace6Q8TEFlNL9vrM4gQSfi IHNpemUgZnJvbSAwLjMgeC MxSpFswQJhUoDqG38bjW1z DO30VZdaKG4wBMpcEB6qXH NtIGFuZCBtZWFzdXJpbmcg LU1kRLggVO36UOsdDG1gGW CgFPnfCXJmD2ZjO5V8BU0p VGhlIHNwZWNpbWVuIGlzIH K8Oh2wpLUwCSIkgaT5p0Rs NIoaUKLrCxvfaG0kXXouow TrX6aNFVPjob2= MICROSCOPIC DESCRIPTION t4thhAFxEPMhyQO7MuWiDN (test code = 3371) Tcg7sde2KvkAHqzOXwRCpy vCPiyuXagh87aKW2wA62ZC 8bAKKkDrC6TTMpgrC9Krz3 ZFMvYARciXVtN140q3ehz4 oeraNkxEV4nYtoMKXmsres FvL2EBwqRCChnoqxTQn1VD ddHZZpaSM9YTOlgBCeJ5Fx PGNrWR3omio7DKQ7TQohZC EwXkC3QCBuhLQpZJUftNcm WTfqb270ODH6YbKpYQQref WhkHfilG6pCdWiFLEJENHn XK7dQEghH0elR7ZaPITaZE lbgVakv3ehAA9eFM7uvLut foJjX4enkHInoSSyffRjKu xyAQ3hBISxsevnJJFcJz5j Yt7pi6cnefnvfUSeteXnzG 5nrQSmlYY2jY6tOPCpahZs v2BlycHcRN6ffZQokWFdfN RhOKT8u7JiXKHgFGWkxtBq UCfkU35tifU5LVkwUMGsKY 3fOI7xKLeazMfhl0VyB1Fu njQupRHcu47jL9RjpSJyti XsdzVqp2VvtlRkiwVxd3U1 kK9xKGL9AIdtfi5hXEgsKT J9 [id number] 18:24:44 Test Item Value Reference Range Interpretation Comments Case Report (test code Surgical Pathology = 104) Report Case: [id number] Authorizing Provider: Charo Wise MD Collected: 01/09/2022 11:31 AM Ordering Location: [facility] Endoscopy Received: 01/09/2022 03:51 PM Services Pathologist: Evelin Wharton MD Specimens: A) - Polyp, Colon - Right/Ascending, ascending colon polyp B) - Polyp, Colon - Sigmoid, sigmoid polyp C) - Biopsy, Gastric, random gastric bx DIAGNOSIS (test code = [id number] 3220) FuZzEwMzNcZnRuYmpcdWMx IHtccnRmMVxlcGljOTYwMV haoeHyJAPalBEpY9Boxsdr IEowQG8iIG6xfRejuLKbbM NjEKJvOfBft8ets765aBCk p8veFAKMzlbtwUx9lQcxJ9 9ke6J1TmnhL62dbFRoTGW6 QNIuLPQniORgIZUjIEE9CD NjmXVdN9oiHQOuPT8rften ZAfuXHapKMVzfSB2YEJemI WaN7MkTENcIOtxTYNcxxm6 CbCwBo0ivBWuvBfwURblZH ZhAGLtHNuvDGJqSdZbYH7k G60EB55yAFQDX2gWY4RBZ1 AJNYqEXzutGD0YTBQQQ6NS IAf4NHDdrik8CCWaZXSUTP PFBSTNCRBAYD5WSOJovIIn SAOjerSDUaDDV6mKUplqZ6 kIXA2KNKtdCY9THXVNU0JE YFa6DZBsxex6XFAcAQGVAX WUUEITFCUNPE1SJCSzLANu ehapJAKtHi3sH8TCWGSUQD fmG2pRUGUIT8CiR1YLG6fI YWTIGZXUSA9GD9xdlYTsQH RhYiAtIFJFQUNUSVZFIEdB O4ICY6BDVPxEVVZvidg2YT NoPFYLRNkMGYyWMA1BJ39D NTGNKJKJRJ7JTNPANUbNZQ 9HSUMgQUxURVJBVElPTlxw ATJjvKTkFU1eIuYUDOQKNz UbFa1PCLlPBUrVP6OZG0HH AdXGWGTFE32VU2EFYKBWEy VCTaPFX7KEJH0WXJISIQuB M8uqCBY7s0nlsHNlBCDkmM UxODAwMFxhbnNpXGRlZmxh ewziXNMpLVC0yaPzQSNvYU pcNOHvZGqwVj2dqLFcgFdn XeVfGMEut8iileHBlaxptJ k0p7ztUPDtOnG8bRPmOQru A9khxrUfnXCrGPTdDMc6nR 82NMAaqS8zcDZsPHvtloBa IrV9PJfcUZFaAhK7NGJnqS QuYYLlP3rbCFKwPAmkQRMd XYocjQHeRON3vHhtd4E8lX VzaGVldHtcZjBcZnMyMiBO g5YtJJq9dPwtQ7ErCDRbHi T4bPXhGRGaROmcSYMpMFEx uqP3vC51GVimusC1gKDlr2 Vaz02og194kI8nvBUtALX5 JYPaKWYxfKAiVJXkFPE8PF EckVKtG9gtGEUaAS4kbrug ARfcUSieWTNhnSY5ELNjvT PhM6VzJBMcAOztCCSmvjy5 HtQgNv8qzAYhoRwoDQqdc0 xld3vadMWjQkk2WTLcQrKj XhsiXNqzi0Mzu0crTJFvtm 5vJON7vTYyfPjvv2Z4lIBg GAMtdYHkUCVqWA8rpJRsEK BfrU3tzanmFDHeFtNgpocb OLOxlQdxrhWtPq8siVxoRT E0UEixU4zvoZ5rShD0VMgp D5zlaM3aGQs5WUdeXHJeeE V6rgI6NTBdgJKlS0JtfU7r DHGtBL6plpd1h0dxYJF9RX mdIKBtHzF6dpQ1KZRcxMQx JDWywTvqZQqhf549TNT4Am CxAWMgt5MoX9PecUxxW90k bSsiI87bUWHplUaezP3kzZ xugG0iLqRsSxGbDFikvSsx IT9vRXXzF1jsbLFtDSLcOE LoB9nxGcZliY2kjNxdJGic fuUiKGXqSpc9ISQfgWQoLP HsObm0SBIzGBWtW71hiuli SRX3pN1dc8eeb8LzIXrsFV B2LVZka61bZDipckQ3XYlk Hg45TJiaMYB8PYjzBZY5dR == CPT Code(s) (test code x9odrABpTYYxhBY5PyKpJE = 3357) Hzy8xid7ZcwTExqSVkQKxq xBXgzvFrtf09eUB0eA99LX 7vWYFbCkZ2UWRjmqT6Mzq5 GNQrPOEttOQyA750i4byu6 lyduYtiBU0yXxgJXVqihql WrK7MXjsHNNajllzCAb8XA fpONVnwDQ8AKRlsILeV7Qu QKDmSS8cqyv2ZSW6ZObeYE YlHfZ4SQIsjWEtGRPklEbb YCsjf772EJJ2TkAgAPZmyk DzrVmaeS4yDqVcQLF5NKRj NVgzXHBhcn0= CLINICAL HISTORY (test c1wcdPSbDIOwsVE5IcJyXT code = 3356) Nlz7emz9NbnFJriYHdYXfx dGFokyFvpa85oQX7aK94KM 0qHEZzCkD9AYSobwP4Jde7 RKHyHDLpxAVaK500t3tfv1 ceblBnlCF1tJcoRHUoqyrp WdM3UUdqKRLsnihfCYh2TA roDBRvhWW8GTNsqKBdN5Pf PJYcAB0qvma4QJW3GKrjXK VyVkX7JJOyaGUkLWRrqFwp WUfdv468HJK7QwAeGUPeek ScnCyqfO3uWaBfIMPCLET1 cl8mb90bhEIyRUClRIRbKu o7hQWimJHcVVZjFSYks3w9 vDPfWgXfs7omeqrjOFC1 SPECIMEN SOURCE (test b6ownNHwSQPvxBG7RkTnLV code = 3377) Bem6klc9MuzIEunAImRGan hCIuhiOasc07zNX3gW41RE 8oNWWwDyW6WIKbwdJ2Mzh4 JNGyTJWopPKtZ890s0vvy4 bnplFtrDS6sHstTOJjwsir KoQ9LXktYSWsawcrCJt9HE xsFFFhsGW1CWMmgILmD7Ta KGSaGI5sqwk4XRP9APpnBY OiPsR0XGGujNQyNYZdwBsf PDdpq946AMA7OiWqJUWgvi TouWfklX3yAvKfEMAINdTp BN1ecJFmGJJgmZ8tVCHvT3 a9J6BqT6CaPSidU2qoaB6c FNFkCGONa0s0lXxxH08dc6 7ww8kykU4jECtmlQ2wQDDq KLYMnD6xe8xgOQwoo9EifC MsIHJhbmRvbVxwYXJ9 GROSS DESCRIPTION (test d9evjZMeSQKhqKKmYjUcEU code = 3366) IaUWDez6wdTVFrwOKzCdTm MzNcZnRuYmpcdWMxXGRlZm Doz2fec224cSWjh4bzWRYX prkggWs9u4gjQKVcDjK1fJ ZkIJxyH8aaaqDmhRNyLNQx EQh2bS95OTKboI8ocFNmVY iblpBkWeY3QZdgVOKdGcE7 LUStoBMzRDQxW6qbQEAoPI feRNTbUBrtuOXkJAL5yCdz q7U1fBLbcTCqzDblLbArTk QtYUGXx6ZmWXc3jIwrB9Fe FIEoXcL5lWNzLEEcBEfsJU FcRUUzlrA6mT19XBpgjbR3 yQBte0Xlh98vu050iD5uzL NzIUG0NRDqTNNsxSAyBCMo GIT5WSCyySCgL5j7TrKseZ TmZ9F8AsRglELrC9D6DqMm zXWmZ3L2CcWogHDcSGZrzY JxTb8gyOOxpKHehj1bzo00 QRK4o7RqqOxiOMZ0LUG0Aa JlAy0bxRZgCTLfSFAhmNFo NVPwTI8btESyCMAqoN4dfb xjXHBnYnJkcmhlYWRccGdi kjCsXa7uuSafKEF4JWfpT7 guuN6qHoJ9LQssI8pdbH3c KGb6BOgrfCD1NEBwwG0dCU 6sijejr3hjRdSnBG8csjcx v1kbTtXgVF2cavs7v2oeIz CjRY2gsahio8ruBsZiQVar MIEthgssBXPam8MxtjumAN Gzb7LuN5CbeMwhH43rwSze O65kXSRyeBlnkH7cfSgbjK 5cZjBcZnMyNFxwYXJkXHBs YWluXGYxXGZzMjBcbGFuZz EwMzNcaGljaFxmMVxkYmNo TOAdAWefH9cwXcFaAuGmMG BBLiBSZWNlaXZlZCBpbiBm a1QqOSutdyXoGNRceOGwMW dpdGggdGhlIHBhdGllbnRc S2T6sxCvKW9fQOXnXPZwS3 JuEDNnP25iWMFcpI0rZMWj UU3cQSOyo2WinbMheugjP7 9fg90yaF8doEKsKQUmZYIq e48wdML1yqBgGnDpTQTsQN NjUZ8yMDGismDnv1U7NTHg m8L7PXQcKZLnhCGelwxsJM 40BBynCM08ZRhtHR0cJVKz LbPMdRXzp9PvQ3xaHU0ncW Nll3IhjPj1eGWuFExlJUWs pU9efL0pGYVmZCfupsQyuB luZSBCLiBSZWNlaXZlZCBp eaHst5KmGSwwwzQsRGEtpP VkIHdpdGggdGhlIHBhdGll ziAoF3O9bfCjBT4nVOXaWB XmB4ZzXMUaQ11dZOOztS9v GHXwFQ4vHYFcvAbjl2weQU JfvU5uAVQywQqmUmJtbjSu N29as9isnLTwz7PeBnHvqH ZkGHAqc6BehJPrJJDxofit v52xqNU4wNGlqNWgioYvI1 tvHwFuasIfiWlpFXLpf08f FM77XJziAY6zAGksSO5mRD LaXGToPXCyHNB8BUOvKlT2 IDAuMiBjbSBhbmQgbWVhc3 RbiS5zLTVcIgK9GNUgNbT8 YGKuAeCzjCFinfPnE4mvQW gchWYmSTYwLXWlhLZvaJ9s teEqbfPhkDJxaRO5YAOfcO 4ydB65gcKlhwKWIK8ldCby TRgfyN2xAGZqUXJiH7Hvdy JiKFupTVAefm4iuJanZUqx DcSfHNRwk8j8uLX7wLGfiK O1lEFyxHwrElIzCT8krMJc QG1fYVtfZTpqgzAeq2GpBD 67hKLyenOhpvFyHtjyg0Vs mXZrYlmwKWOqELNyu09atR T9ptKeNhU0MIHsIBDclcGf KqC6MJ1ukZjcfpTsi4L8LA Zjk1M0MQFfIL1fgG8oODdn IHNpemUgZnJvbSAwLjMgeC RhZvHxqSRhSkBrR74ezJ1v II57TSxiJV4gXBfcAJ6zTV NtIGFuZCBtZWFzdXJpbmcg VV8eTQudIY18VEaiCW9cGD ZuNCinWOEzV3EaW5B5EW7f VGhlIHNwZWNpbWVuIGlzIH V0Jr3doMTmXYKrkwU1s5Rc JRieSGXmZcgspS5mGBtlwo YsC9mMOGEabz7= MICROSCOPIC DESCRIPTION x1aotMPsLKOfrIC6OzVyRJ (test code = 3371) Ndv7plh1FwsPKhfAOzINws iKXfebNgri81mCE5oP53EA 2qBTBdWgC1NLIrmqB1Klx0 IULwEJFmnHKuD225y6jhz2 ybmaOeoID2eZapWZAqpyra JyG0LJjhYLOigbbzHAy8JE apOEVuvTU1WHUfzWDaO8Wo YTOnNI9iuea2AAP9MSpuSV VxPqL0GNWtrUMoHEQmpGjy QFagk046BKP5NhQxWAGntt MgjDuqrD5pQsAxOTSWESLy YA7lCHypF6voT8JqAXNdLH sswExdr9sjPI2vPO8tuQsu hoVkZ6pisXFllGGzzxFwTm hyEI2wJGGreijcMEQhLw5a Uq7xa7fkkzkfcHRopqWsaZ 1thRBriAL8yP3lWNIxqjDk y9FokbKySG3ahPVrmLHejV LzSIQ2z1EiFCIbFRXiwqXj NTvaT21dpvG8OKieLBNtSP 8dVY6cPFcwnDsno3YvZ5Dq okMnoLIin28vB1RctOHenm JppvDnp1NnmjMxxpCxw5B4 aC2eIDG6WZqucb0bXXapNE [facility]9 [id number] 18:24:44 Test Item Value Reference Range Interpretation Comments Case Report (test code Surgical Pathology = 104) Report Case: [id number] Authorizing Provider: Charo Wise MD Collected: 01/09/2022 11:31 AM Ordering Location: [facility] Endoscopy Received: 01/09/2022 03:51 PM Services Pathologist: Evelin Wharton MD Specimens: A) - Polyp, Colon - Right/Ascending, ascending colon polyp B) - Polyp, Colon - Sigmoid, sigmoid polyp C) - Biopsy, Gastric, random gastric bx DIAGNOSIS (test code = [id number] 3220) FuZzEwMzNcZnRuYmpcdWMx IHtccnRmMVxlcGljOTYwMV lnnjRxNXCsiCZwA0Yfkjxu MBxzXT8lVI3swStlsPQolA ZnQXTsTcLlj4uds154wHXa e6owHGRKamoodOf9yXddF5 9nd5U1SwvyT42gsIUnRJG2 MWScCJImlINpORCkFVC5UI QuoFIvU0wrDKQuKF0tspnx SAjqNPspMIRhlVV6AAAwdQ FxZ4GkXYDbTJbnVMUfahn9 SqEhCe9zoWRmuLwrGQrpMB JsEUEqVOlvNHQcFqBoWU2p V70LW77qWMIST3dYP4OON9 YJYNhWAjknHQ7XHWNJL4MO IWk8ZNYrwcv5OJEoKOPYEC DLKKFORBYXBC2GQDKoyGUy YPVlpwVQYwKZW6oYNptwW9 uRVE7MBAlhOS0WTETGK4LF IRs2LVEqpnc8JPBmIXDFLM LTQZBSALHLXQ0RSDIeCFLo ugdzVXBsWk7xG2BIFHBMUM qmT6ePALJOB7RsR1XQV3uV ITTEWCNJNU1WP3imsZTfIT RhYiAtIFJFQUNUSVZFIEdB E5PMA0GYCDhXWEAiwgt5DL FgTLRMOLbFPVtSMY7FF71S WDNCTCCABU5JMJWWSTnNSA 9HSUMgQUxURVJBVElPTlxw SIQteOIrGN6sIbLLKAWDIt QhJt8UJWzUXOxLZ6IUC2VW EnADAKDGL79WS6VTDTNOYt RFVmKWE2KOYC9VPLYCNBhM J3csMMJ7y1zflUMfLQHbcW UxODAwMFxhbnNpXGRlZmxh eyweWGWnTKE0cxAhSFHqUQ rhGUVmZUqjAu3nhXIfkIfr YzQtFWLjp2nicuLUwdfyzP v4i4muGSLoMmP5oCGpVOpj H8carcSneKIoQVRtKBb8wM 06RHJjgQ8dmGMpEUfoanCk JdP3FJoyOMXcCmV8FBZaoX RdRKUoL1joQZCvGUbvPDJt OZhamPEkGOS7iUebk8N8eT VzaGVldHtcZjBcZnMyMiBO c4SeXTw7gAvgH1PnGPPxOv L9wLBnCSZnFXxvRXAsJJMp ewY1dR42FPgsghN4dNMtp1 Jsz83ah946uZ9ozOJuIPA6 XHWbOAJozTWeBRZoGIF4UT OekJMrH8veLHQwRQ2ldmrs UHlkDWekIYKlfHP9KQFzqM NbZ6IrMWWeSFpbQBAwoto2 BlWjIj8bqIOyhZvcSOicg7 ejt7ijmNXxFdx5MTLxCqOb VttaEZvqt3Yre8jkFNShuc 2qHJU8cEQopRgsp2G8wGUu ZVKujWLgVXYwJQ8uxNIyEN PtxA9ksrvkVLXpVjIxdsdl BPGrmDrmvjEdCv8zdGefBM J8KSusY2zygB1mDrF8XGgj G6jnnM3aOLw1HQgdZLVncR I3xzY2HHYgvAZxO2WmzP2r MBRgES9zmil3o1gnLBG7RQ siEAZnZkQ1mqT3LUFcwPIm XJTojNgiSLcwx876DCP2Qm GfSUSlf5GaV9KahZulO71v kJrlA62oSXLhuShyyN7soP ahkE5zQkVyNwRwOSnifLqz LJ4sWUDnZ7wimBGvTQZlUD PlO3htKwZyoN0zgPwxKShg afDyJNNoKdw8REVrzLPgWT DeNxu4CSGvLBHxP94wzjdn BSQ8kY3so5mpz4NbENsdMF H7XLQpi30eSSgxraN4HAnd Fk20HGjaSQM4BNioKGW7tS == CPT Code(s) (test code x5uuoNHhERDxpTO2HaUuEJ = 3357) Sow3kkq9WsiFHhhDRhWAgm uNGmreMazd34hDT8yD25II 1eJPYbHyL3YMIjnfJ7Mmi8 GRWnUFQswNSdY463j4mtu8 lhapSezFZ1tSvlXZCfsrqk PfI0HWbhUUGzknupJLw9UT nnNTAzcAR6SUZdcUZtD6Sb JFPaKD3sjpa8KQM1OPmhDY XaTnO3WLLfsJFuJWEnrSui DFepq085VAK1OwJzWDJrrj LqqOtleW5kGhXiBKZ9EJZk NVgzXHBhcn0= CLINICAL HISTORY (test l7zeqLCrXKVqrHB9WzMnDD code = 3356) Guu7fkf4WlyKPtbXVkEUok hOUdmaLyxv42rHB4kK49VO 1bDAXqPfD5JZIrenG9Ivl1 GBSvUTIehDQsI868y2kwo9 biflDhkWC3pCfmWSRduxmm OpA6REhsNBMqgbftDYs4NF hlMDZdxBG0TYNuuYAaD7Bo SURsNO4xdtd5OGH5ZScpVA KfVuU8IXKvyMApDDDycHej DVpdh982ZGQ5KgIdHGIvot PskUuuzI5iZhXrCGXWMDH3 ld6nv32juEQqCXVhQCFsPe w8mPQeeWUnGHKvNLEni1h9 fOSdEmTts0qcmiqwCPM9 SPECIMEN SOURCE (test c4nuiUHpAAJhsLG9EwWeJL code = 3377) Gko5anp6QjbKHqyRGfTJod tLFmhqNmao96vAF9sW37PF 5gHXTtXfG5UKKnnpL6Yno3 TVKkPUGvpWOfV456k6jdo2 mfzdPmpTZ4vSamVPEhjdhu SqG4RYxkBFZjhnzvWOs1VM ztNPHhlJG0VKCvvTWkW7Wi NKZnZF1jdng5BOP4OSfnPA NxZwL9QAMhdWYcCAXcjAfc KVodw871VFP1NvAtFAWwfo OgzOwdlA8xHmKoAEXVKsEe FU5yjBIhGRCkgE5pKJKoG5 s7X4XbJ3UbPKrvO5vheQ6c ZCIbOARSn7n9mIcrL65kv9 5ix3nvlI7yNUsnoI0xWZJn NWOTlI0xb3ayYPjhl5OhpC MsIHJhbmRvbVxwYXJ9 GROSS DESCRIPTION (test g7sdcHUhGWJlaZYmBhSnTS code = 3366) JsXJGao6xaGCXlfSPrQcSj MzNcZnRuYmpcdWMxXGRlZm Zav2etj508jKPvt6thQWSG wdaaaNc5l6geHFDfEqK4hV OiOHlkF2jfskXihRTlUZLf LKq6rP79LIRwiJ4wqGCnQO bhydQdNrW9YZjiZHKkYhL0 ENHkaLFzQDIzZ8ydDWPiNG fpPJDeDTjjnVZdVII4rDdk n2M6lLVqbDVlyKnqDvAnWp PfHTSPx6MxXJh1sTicN1Yk REBdVyQ9fUNkMGVgWMgoNS PqFMEmctH0wR03PVyckeS4 cFGpv3Yjm32rf922nW5kwT KcUSO6MQJpMVHrjLQcKAXz WOP0ULCizZTgT7t9ApSsbI MsE1X3ClDddAEmS4O1YyRl uQClW8W9JnBniXUiZNMfeO DwQe3iqNGrfZUcgc5qpj57 TBD8i1UmuPkwPET0IBW6Kf QzLi3gwBXnJWZcHVDxaTSu LAHjWB2zyGHaGALltE2dbe xjXHBnYnJkcmhlYWRccGdi jpRdAu6qdUnrPBX7LTvrE3 uocM8yVvC4RFjhF1jkuV9e TDr7SWcotZW7DHFjkA7mXH 8zxgsds0rnHhLsYR0litnp t6leTwPcQC8iyen7c1woIg OjTX2atipez7upObYfHGbk UBFwxolwLEVli9NvxxlmXM Wrh0XgX8EitSukY14alWeo Q38kZNJnpZejxA9vpBnxuI 5cZjBcZnMyNFxwYXJkXHBs YWluXGYxXGZzMjBcbGFuZz EwMzNcaGljaFxmMVxkYmNo YCEwGWuiD5kzKuUmUdLwKF BBLiBSZWNlaXZlZCBpbiBm v1JnLDtkckVaVQTtsKLtQC dpdGggdGhlIHBhdGllbnRc N1W6yrBkHL8lOANdXVYxH4 DiWFAbR80qUTObbR6rNIOe MR4aTKBvi3SzqkMurhakZ7 5bw03cbJ8ljKLwNDOfPVHv p72geAJ1naYdEwNhVBBwIU MfKX2yPSHqxfNgo3W6OLXi n3U1ZVOpTIBbtGTdjgwjYX 70XMrtTS33ARjpBV1gJIDk MzPTeCHup6QpT7vzBF0czD Eqo5UndBh7bRCmKTdpDIEm mV6miL7fNISoDZswgtUnqE luZSBCLiBSZWNlaXZlZCBp chExt7YsLJuyxlDrCLUjlL VkIHdpdGggdGhlIHBhdGll mlNsA0Z2rnQgSA0dCZQnJF QhB2CjUUUbL65eMKLgwY3e SSLlZB6gKBAjlDrwj7mtXI UiuM4bYTHrrGctUnWrxlAl E98kf8locEPas5PsPtJafI OqVIAfy7JupWXzTRHjjnqz x25weJC0dGXdmYTsdcKaM7 azKtZraaNcbXbgLFBwh36n JU96CKdtYQ1yNBqoCL5qAN LeAMAcXFSmAUB7PCXqZjH3 IDAuMiBjbSBhbmQgbWVhc3 GupC0cMTFkFtD2NKIoLgZ0 IMPcOoAutQIjtmQgT2hhRG ndpAXzHZJeGXSfpYWkzD9h gvEukmTphWWleGP5SURqyW 8flG27lpOrkpMNLP5ypEcf ZDxlxI1sUQIuWLXeG0Clfw EmYRsxCMXcsu0ggWtqVMci ZiFjCEYkx5k0iXO7fVUezW Z6kWIdmMpgFwDxCA6tpIXf GS3eFJjfAHtqdzSgn5ZsTP 13qCIqiwQtjbDeSmeik2Bi oWJrCpqwYZFfBUThz01leO Y3vlIdNsZ7VAFzNMJrbeSd CrU2XW0wyWvhblExr0P5MJ Sra6F7VSUbGJ4lpY7cSTtl IHNpemUgZnJvbSAwLjMgeC CtLkLzoWUuLnPkQ37srE1d BO85FUeeVF7oIOvaZB7cQF NtIGFuZCBtZWFzdXJpbmcg UU4aBFfcWQ72IIjaAM8gUZ TeBXzcRQTrI2CuV0W9CQ7p VGhlIHNwZWNpbWVuIGlzIH I2Ye9fhVVnLFMiqrK1s2Po HQixPJYaEzxuaV2oDJfehn XcV6tOGSRdcm8= MICROSCOPIC DESCRIPTION n8uxqJPjRAXeaDF2VyOlVO (test code = 3371) Hug5kqs5ChrRVfqBVbSQhq fZMpebByid49hTZ8dC28JT 8jVCTbVaE4GGCtazJ4Dqu4 RMHiWWMllEKmU374p6cqy0 geyfLzkOV0aFseIXIschcd PfQ8GHfrYVKpgrkyWCu6SS vkMINqnUU2SAXpxXZfL8Lo PVBtYO2srbv5XAS8ACbaIY MkFrI6NFZgnWZwJQTybOuu OKuhc030UGI9QnIuPVCetw QwtGbhxM3xMlUvNHQHHPKu HB6cRCfnA7gnW2BaTMEiEA fprApix4ztAF3yAP6mmXyf ycNgK6grkZSkjEBrawWcWf tkEF0cMTWlnmqwCFRcGb2s Vz8ao5lvhrkufJFrpcNjzA 0ofGHqdKL0yU2tOCGuxaFz e1PbxuEzPL5unZGchBRanE XeMZO9b0XaSEJcMEScciKz QVqzZ32ctbM8RUkfYWFoVW 4vVG0oNUsenHjse4LnF1Oz isRmpFTim03mW0EtrWYjaj UwpkIlo2UbzpArirZqf9Z2 cD2hIGZ2FLtvde2jTQrvOT J9 [facility] ValleyTISS[facility] [id number] 18:24:44Surgical Pathology Report Case: [id number] Authorizing Provider: Charo Wise MD Collected:01/09/2022 11:31 AM Ordering Location: [facility] Endoscopy Received: 01/09/2022 03:51 PM Services Pathologist: Evelin Wharton MD Specimens: A) - Polyp, Colon - Right/Ascending, ascending colon polypB) - Polyp, Colon - Sigmoid, sigmoid polyp C) - Biopsy, Gastric, random gastric bx A. COLON, RIGHT/ASCENDING, POLYPECTOMY: - TUBULAR ADENOMAB. COLON, SIGMOID, POLYPECTOMY: - TUBULAR ADENOMA C. STOMACH, SITE NOT SPECIFIED, BIOPSY - REACTIVE GASTROPATHY - OXYNTIC MUCOSA WITH NO PATHOLOGIC ALTERATION - NEGATIVE FOR HELICOBACTER MICROORGANISMS ON ROUTINE STAINS Signing Pathologist Direct Phone Line: [phone] signed by Evelin Wharton MD on 01/12/2022 at 6:24 [id number] reflux disease, polyp of colonA. Polyp, colon- right/ascendingB. Polyp, colon-sigmoidC. Biopsy, gastric, randomA. Received in [...] Helicobacter microorganisms are seen on routine stains.POC-Glucose [id number] 13:54:18 Test Item Value Reference Range Interpretation Comments POC-Glucose Meter (test 133 mg/dL 70-110 H : TE STED AT [facility] code = 1538) [address] [facility], [facility] 30: Centerless Grinding Machine Adjuster/Techni miguelina ID = [id number] for Sally Earlja Lab Interpretation (test Abnormal code = 60571-0) [facility]-Glucose [id number] 13:54:18 Test Item Value Reference Range Interpretation Comments POC-Glucose Meter (test 133 mg/dL 70-110 H : TE STED AT [facility] code = 1538) [address] [facility], 770 30: [employer]inding Machine Adjuster/Techni miguelina ID = [id number] for Marybel Earl Lab Interpretation (test Abnormal code = 92752-8) [facility] [id number] 13:54:18 Test Item Value Reference Range Interpretation Comments POC-Glucose Meter (test 133 mg/dL 70-110 H : TE STED AT [facility] code = 1538) [address] [place] [address], 770 30: [employer] Grinding Machine Adjuster/Techni miguelina ID = [id number] for Marybel Earl Lab Interpretation (test Abnormal code = 47240-0) [facility] [id number] 13:54:18 Test Item Value Reference Range Interpretation Comments POC-Glucose Meter (test 133 mg/dL 70-110 H : TE STED AT [facility] code = 1538) [address] [facility], 770 30: [employer] Machine Adjuster/Techni miguelina ID = [id number] for Marybel Earl Lab Interpretation (test Abnormal code = 16052-7) [facility]-GLUCOSE [id number] 13:54:18 Test Item Value Reference Range Interpretation Comments POC-GLUCOSE METER 133 mg/dL 70-110 H : TESTED A T [facility] 6720 (BEAKER) (test code = [facility] [place] [facility], 1538) [address]: [employer] Machine Adjuster/Techni miguelina ID = [id number] for Marybel Pina POCT-GLUCOSE [id number] 10:12:16 Test Item Value Reference Range Interpretation Comments POC-GLUCOSE METER 135 mg/dL 70-110 H : TESTED A T [facility] 6720 (BEAKER) (test code = [facility] [place] [facility], 1538) [address]: [employer] Gr[employer] Machine Adjuster/Techni miguelina ID = [id number] for MAYELA BROWNING SARS-CoV2/RT-PCR (Asymptomatic ONLY)2022-01-09 09:03:44 Test Item Value Reference Interpretation Comments Range SARS-COV2/RT-PCR Negative Negative The SARS-Co V-2 (test code = target nucleic 44197-2) acids are not detected in thi s [...] revoked sooner. Fact Sheet for Healthcare Providers: https://www.[employer]/Documents/Xp ert%20Xpress%20SAR S%20CoV-2/Fact%20S heets/302-3802%20S ARS-COV-2%20HEALTH CARE%20PROVIDERS%2 0FACT%20SHEET.pdf Fact Sheet for Healthcare Patients: https://www.[employer]/Documents/Xp ert%20Xpress%20SAR S%20CoV-2/Fact%20S heets/302-3801%20S ARS-COV-2%20PATIEN T%20FACT%20SHEET.p df Lab Interpretation Normal (test code = 65059-2) [facility]2022-01-09 09:03:44 Test Item Value Reference Interpretation Comments Range SARS-COV2/RT-PCR Negative Negative The SARS-Co V-2 (test code = target nucleic 86507-3) acids are not detected in thi s [...] om SARS-CoV-2 in a nasopharyngeal swab specimen [place] [facility] kaylie from individual s suspected of COVID-19 [...] revoked sooner. Fact Sheet for Healthcare Providers: https://www.[employer]/Documents/Xp ert%20Xpress%20SAR S%20CoV-2/Fact%20S heets/302-3802%20S ARS-COV-2%20HEALTH CARE%20PROVIDERS%2 0FACT%20SHEET.pdf Fact Sheet for Healthcare Patients: https://www.[employer]/Documents/Xp ert%20Xpress%20SAR S%20CoV-2/Fact%20S heets/302-3801%20S ARS-COV-2%20PATIEN T%20FACT%20SHEET.p df Lab Interpretation Normal (test code = 79048-4) [facility]Asymptomatic ONLY[facility]2022-01-09 09:03:44 Test Item Value Reference Interpretation Comments Range SARS-COV2/RT-PCR Negative Negative The SARS-Co V-2 (test code = target nucleic 73155-7) acids are not detected in thi s [...] revoked sooner. Fact Sheet for Healthcare Providers: https://www.[employer]/Documents/Xp ert%20Xpress%20SAR S%20CoV-2/Fact%20S heets/302-3802%20S ARS-COV-2%20HEALTH CARE%20PROVIDERS%2 0FACT%20SHEET.pdf Fact Sheet for Healthcare Patients: https://www.[employer]/Documents/Xp ert%20Xpress%20SAR S%20CoV-2/Fact%20S heets/302-3801%20S ARS-COV-2%20PATIEN T%20FACT%20SHEET.p df Lab Interpretation Normal (test code = 71894-0) [facility]Asymptomatic ONLY[facility]2022-01-09 09:03:44 Test Item Value Reference Interpretation Comments Range SARS-COV2/RT-PCR Negative Negative The SARS-Co V-2 (test code = target nucleic 37763-3) acids are not detected in thi s [...] revoked sooner. Fact Sheet for Healthcare Providers: https://www.[employer]/Documents/Xp ert%20Xpress%20SAR S%20CoV-2/Fact%20S heets/302-3802%20S ARS-COV-2%20HEALTH CARE%20PROVIDERS%2 0FACT%20SHEET.pdf Fact Sheet for Healthcare Patients: https://wwwkidthing/Documents/Xp ert%20Xpress%20SAR S%20CoV-2/Fact%20S heets/302-3801%20S ARS-COV-2%20PATIEN T%20FACT%20SHEET.p df Lab Interpretation Normal (test code = 20026-2) [facility])2022-01-09 09:03:44 Test Item Value Reference Range Interpretation Comments SARS-COV2/RT-PCR Negative Negative The SARS-Co V-2 target (test code = nucleic acids a re not 0386671) detected in thi s specimen. Negative result [...] revoked sooner. Fact Sheet for Healthcare Providers: https://www.[employer]/Documents/Xpert%20Xpress%20SARS%20CoV-2/Fact%20Sheets/3023802%77QAFE-XXB-9%20 HEALTHCARE%20PROVIDERS%20FACT%20SHEET.pdf Fact Sheet for Healthcare Patients: https://www.[employer]/Documents/Xpert%20Xp ress%20SARS%20CoV-2/Fact%20Sheets/3023801%45VEGJ-BHP-2%20PATIENT%20FACT%20SHEET .[id number] 14:57:00 Test Item Value Reference Range Interpretation Comments SURG (test code = SURG) RUN DATE: 08/26/20 [facility] PAGE 1 RUN TIME: 1457 Specimen Inquiry RUN USER: INTERFACE PATIENT: PEPE ACOSTA LOC: ANDI U #: [id number] AGE/SX: 55/F ROOM: RE08/23/20[facility] DR: Tapan Harper MD : 69 BED: DIS: STATUS: [facility] TLOC: SPEC #: [id number] RECD: 08/23/20 STATUS: KRISTIN RE #: [id number] HIRO: 08/23/[address] [facility] [address]: Tapan Harper MD ENTERED: 08/23/20 SP TYPE: SURG OTHR DR: Jaron Irving DO ORDERED: SURG PATH LVL 02/01 COPIES TO: Jaron Irving [place] [address] [place] [address] Tapan Harper MD [address] [place] [address] HISTOLOGY: TISSUE ID [id number] PCS DIANE LEV [...] - R10.84; K59.00 CPT CODES CPT CODE(S): 50251I6 , , , , , , FINAL DIAGNOSIS A. Colon, right, biopsy: COLONIC MUCOSA WITH NO PATHOLOGIC DIAGNOSIS B. Colon, mid, biopsy: COLONIC MUCOSA WITH NO PATHOLOGIC DIAGNOSIS CONTINUED ON NEXT PAGE RUN DATE: 08/26/20 [facility] PAGE 2 RUN TIME: 7 Specimen Inquiry RUN USER: INTERFACE SPEC #: [facility]:[id number] PATIENT: PEPE ACOSTA #[id number] (Continued) FINAL DIAGNOSIS (Continued) C. Colon, left, [...] all as C. ba/nr Grossing performed at [facility] Pathology, [address] [place] [address], [address], [place], [place] [address]. Design Cell Engineer: Leeroy Jimenes M.D. MICROSCOPIC DESCRIPTION A. Right [...] malignancy is identified. Signed SIGNATURE ON FILE KellyCarlos M 08/26/20 1457 END OF REPORT GLUCOSE BEDSIDE [id number] 08:29:00 Test Item Value Reference Range Interpretation Comments GLUCOSE BEDSIDE TESTING (test code 156 mg/dL 70-110 H = GLUBED) BASIC METABOLIC [id number] 12:40:00 Test Item Value Reference Range Interpretation [...] CA) 9.0 MG/DL 8.5-10.1 N BASIC METABOLIC [id number] 12:37:00 Test Item Value Reference Range Interpretation [...] 9.0 MG/DL 8.5-10.1 N COVID 19 INHOUSE [id number] 12:37:00 Test Item Value Reference Range Interpretation Comments COVID 19 INHOUSE AG NEGATIVE Negative Per manu facturer, (test code = negative result s should [id number]) be treated aspr esumptive and, if inconsi [...] symptoms co nsistent with COVID-19. CBC W/AUTO [id number] 12:23:00 Test Item Value Reference Range Interpretation [...] (test code NO DIFF/SCN CRITERIA = MDIFF) [id number] 15:34:00 RUN DATE: 12/13/19 [facility] PAGE 1 RUN TIME: 1535 Specimen Inquiry RUN USER: INTERFACE ----- -------PATIENT: PEPE ACOSTA LOC: [facility] U #: [id number] AGE/SX: 54/F ROOM: RE12/11/19REG DR: Cas Rodriguez MD : 69 BED: DIS: STATUS: [facility] [place] TLOC: SPEC #: [id number] RECD: 12/11/19 STATUS: KRISTIN REQ #: [id number] HIRO: 12/11/[address] [facility] [address]: Cas Rodriguez MD ENTERED: 12/11/19 SP TYPE: SURG OTHR DR: Jaron Irving DO ORDERED: SURG PATH LVL 01/31 COPIES TO: Jaron Irving [place] [address] [address] Cas Rodriguez MD [address] [place] [address] HISTOLOGY: TISSUE ID BLK PCS DIANE LEV PROCEDURE DISPOSITION ____ ___ ___ ___ GASTRIC ANTRUM A 1 3 GASTRIC ANTRUM B 1 3 PROCEDURES: SURG PATH LVL 4 (12/11/19-1054) TISSUES: A. GASTRIC ANTRUM - GASTRIC BIOPSY B. GASTRIC ANTRUM - DISTAL GASTRIC BIOPSY CLINICAL HISTORY EPIGASTRIC PAIN -R10.13; NAUSEA -R11.0; VOMITING -R11.10 CPT CODES CPT CODE(S): 17705I5 , , , , , , FINAL DIAGNOSIS A. Stomach, biopsy: MILD CHRONIC GASTRITIS NEGATIVE FOR INTESTINAL METAPLASIA, DYSPLASIA, OR MALIGNANCY NEGATIVE FOR HELICOBACTER PYLORI ORGANISMS B.Stomach, distal, biopsy: MILD CHRONIC GASTRITIS NEGATIVE FOR INTESTINAL METAPLASIA, DYSPLASIA, OR MALIGNANCY CONTINUED ON NEXT PAGE RUN DATE: 12/13/19 [facility] PAGE 2 RUN TIME: 1535 Specimen Inquiry RUN USER: INTERFACE SPEC #: [id number] PATIENT: PEPE ACOSTA #[id number] (Continued)------- ----- FINAL DIAGNOSIS (Continued) NEGATIVE FOR HELICOBACTER PYLORI ORGANISMS GROSS DESCRIPTION A. Gastric biopsy. Received in formalin is a vazquez tissue fragment, 0.5 cm, all as A. B. Distal gastric biopsy. Received in formalin is a vazquez tissue fragment, 0.3 cm, all as B. shivam/nr Grossing performed at [facility] Pathology, [address] [place] [address], [address], [place] [address]. Design Cell Engineer: Leeroy Jimenes M.D. MICROSCOPICDESCRIPTION A. Gastric biopsy. Sections demonstrate gastric mucosa with mild chronic inflammation. No dysplasia or malignancy is identified. No evidence of intestinal metaplasia is seen. No features ofHelicobacter pylori organisms are identified. B. Distal gastric biopsy. Sections show gastric mucosawith mild chronic inflammation. No dysplasia or malignancy is identified. No evidence of intestinal metaplasia is seen. No features of Helicobacter pylori organisms are identified. Signed SIGNATURE ON FILE Carlos Mendoza 12/13/19 1534 END OF REPORT GLUCOSE BEDSIDE [id number] 06:17:00 Test Item Value Reference Range Interpretation Comments GLUCOSE BEDSIDE TESTING (test code 170 mg/dL 70-110 H = GLUBED) UR HCG [id number] 11:12:00 Test Item Value Reference Range Interpretation Comments UR HCG QUAL (test code = HCGQLU) NEGATIVE NEGATIVE
--- NOTE | 2022-10-28 18:23 | RAD REPORT ---
EXAM DESCRIPTION: RAD - Chest Pa And Lat (2 Views) - 10/28/2022 6:17 pm CLINICAL HISTORY: SOB COMPARISON: Portable 09/04/2022 TECHNIQUE: Frontal and lateral views of the chest were obtained. FINDINGS: The lungs are normal volume with no peripheral mass or consolidation. Interstitial marking s are mildly prominent. This is not grossly different from comparison. Mild interstitial edema or inf iltrate could be masked in this setting. Heart size is normal and central vasculature is within normal limits. No pleural effusion or pneu mothorax seen. No acute bony finding noted. No aortic abnormality. IMPRESSION: No acute focal lung parenchymal process seen. Mildly prominent interstitial pattern is believed to be baseline but could mask a mild edema or infil trate.
--- NOTE | 2022-10-28 18:51 | EDPHYS ---
Physician Documentation [facility] Name: Maria De Jesus Acosta Age: 57 yrs Sex: Female : 1965 Arrival Date: 10/28/2022 Time: 16:05 Bed IW3 Private MD: Trent Irving H ED Physician Duncan Delaney HPI: 10/28 18:44 This 57 yrs old Female presents to ER via Ambulatory with complaints of snw Wheezing > 1 Year, Nausea/Vomiting. 18:44 The patient presents to the emergency department with wheezing, that began Weather - snw increased wheezing with cold weather snap. Onset: The symptoms/episode began/occurred suddenly, 1 week(s) ago, and became persistent. Severity of symptoms: At their worst the symptoms were moderate. The patient has experienced similar episodes in the past. The patient has not recently seen a physician. Historical: - Allergies: 17:21 Doxycycline; ss 17:21 kiwi; ss 17:21 metoclopramide HCl; ss 17:21 orange juice; ss 17:21 Reglan; ss - PMHx: 17:21 Asthma; CHF; COPD; Crohn's; Diabetes - NIDDM; Hypertension; ss - PSHx: 17:21 Appendectomy; Cholecystectomy; Shoulder; Ligation of fallopian tube; ss - Immunization history:: Client reports receiving the 2nd dose of the Covid vaccine. - Social history:: Smoking status: Patient denies any tobacco usage or history of. ROS: 18:44 Constitutional: Negative for fever, chills, and weight loss, Eyes: Negative for injury, snw pain, redness, and discharge, ENT: Negative for injury, pain, and discharge, Neck: Negative for injury, pain, and swelling, Cardiovascular: Negative for chest pain, palpitations, and edema, Abdomen/GI: Negative for abdominal pain, nausea, vomiting, diarrhea, and constipation, Back: Negative for injury and pain, : Negative for injury, bleeding, discharge, and swelling, MS/Extremity: Negative for injury and deformity, Skin: Negative for injury, rash, and discoloration, Neuro: Negative for headache, weakness, numbness, tingling, and seizure, Psych: Negative for depression, anxiety, suicide ideation, homicidal ideation, and hallucinations. 18:44 Respiratory: Positive for cough, wheezing, expiratory. Exam: 17:22 Constitutional: This is a well developed, well nourished patient who is awake, alert, snw and in no acute distress. Head/Face: Normocephalic, atraumatic. Eyes: Pupils equal round and reactive to light, extra-ocular motions intact. Lids and lashes normal. Conjunctiva and sclera are non-icteric and not injected. Cornea within normal limits. Periorbital areas with no swelling, redness, or edema. ENT: Nares patent. No nasal discharge, no septal abnormalities noted. Tympanic membranes are normal and external auditory canals are clear. Oropharynx with no redness, swelling, or masses, exudates, or evidence of obstruction, uvula midline. Mucous membranes moist. Neck: Trachea midline, no thyromegaly or masses palpated, and no cervical lymphadenopathy. Supple, full range of motion without nuchal rigidity, or vertebral point tenderness. No Meningismus. Chest/axilla: Normal chest wall appearance and motion. Nontender with no deformity. No lesions are appreciated. Cardiovascular: Regular rate and rhythm with a normal S1 and S2. No gallops, murmurs, or rubs. Normal PMI, no JVD. No pulse deficits. 17:22 Abdomen/GI: Soft, non-tender, with normal bowel sounds. No distension or tympany. No guarding or rebound. No evidence of tenderness throughout. Back: No spinal tenderness. No costovertebral tenderness. Full range of motion. Skin: Warm, dry with normal turgor. Normal color with no rashes, no lesions, and no evidence of cellulitis. MS/ Extremity: Pulses equal, no cyanosis. Neurovascular intact. Full, normal range of motion. Neuro: Awake and alert, GCS 15, oriented to person, place, time, and situation. Cranial nerves II-XII grossly intact. Motor strength 5/5 in all extremities. Sensory grossly intact. Cerebellar exam normal. Normal gait. Psych: Awake, alert, with orientation to person, place and time. Behavior, mood, and affect are within normal limits. 17:22 Respiratory: the patient does not display signs of respiratory distress, Respirations: shallow respirations, tachypnea, Breath sounds: bronchial sounds, that are moderate, wheezing: expiratory is heard diffusely. Vital Signs: 17:17 BP 145 / 90; Pulse 98; Resp 19; Pulse Ox 93% on R/A; ss 17:21 Temp 97.7(O); Weight 147.42 kg; Height 5 ft. 3 in. (160.02 cm); ss 17:21 Body Mass Index 57.57 (147.42 kg, 160.02 cm) MDM: 17:13 Patient medically screened. snw 18:51 Data reviewed: vital signs, nurses notes. Data interpreted: Pulse oximetry: on room air snw is 93 %. Interpretation: acceptable. Counseling: I had a detailed discussion with the patient and/or guardian regarding: the historical points, exam findings, and any diagnostic results supporting the discharge/admit diagnosis, radiology results, the need for outpatient follow up, to return to the emergency department if symptoms worsen or persist or if there are any questions or concerns that arise at home. Special discussion: Based on the history and exam findings, there is no indication for further emergent testing or inpatient evaluation. I discussed with the patient/guardian the need to see the primary care provider for further evaluation of the symptoms. I discussed with the patient/guardian the need to see the asbestos microscopist for further evaluation of the symptoms. 18:51 Special discussion: I have referred the patient to see his PCP for further evaluation snw of high blood pressure. 10/28 17:21 Order name: Chest Pa And Lat (2 Views) XRAY; Complete Time: 18:24 snw Administered Medications: No medications were administered Disposition: 17:59 Co-signature as Attending Physician, Duncan Delaney MD I agree with the assessment and rt plan of care. Disposition Summary: 10/28/22 18:50 Discharge Ordered Location: Home snw Condition: Stable snw Diagnosis - COPD/ Chronic obstructive pulmonary disease with (acute) exacerbation snw Followup: snw - With: Trent Irving DO - When: 2 - 3 days - Reason: Recheck today's complaints, Continuance of care, Re-evaluation by your physician Followup: snw - With: Emergency Department - When: As needed - Reason: Worsening of condition Discharge Instructions: - Discharge Summary Sheet snw - Chronic Obstructive Pulmonary Disease Exacerbation snw Forms: - Medication Reconciliation Form snw - Thank You Letter snw - Antibiotic Education snw - Prescription Opioid Use snw Prescriptions: - Zyrtec 10 mg Oral Tablet - take 1 tablet by ORAL route once daily As needed; 20 tablet; Refills: 0, snw Product Selection Permitted - Prednisone 20 mg Oral Tablet - take 2 tablets by ORAL route once daily for 5 days; 10 tablet; Refills: 0, snw Product Selection Permitted - Pepcid 20 mg Oral Tablet - take 1 tablet by ORAL route once daily; 20 tablet; Refills: 0, Product snw Selection Permitted - Zithromax 500 mg Oral Tablet - take 1 tablet by ORAL route once daily for 5 days; 5 tablet; Refills: 0, snw Product Selection Permitted Signatures: Dispatcher [employer] EDIA Evelia Haque FNP-C SIGNAL FITTER-Sharonda Vazquez RN RN ss Duncan Delaney MD MD rt
--- NOTE | 2022-10-28 18:51 | ER ---
Nurse's Notes [facility] Name: Maria De Jesus Acosta Age: 57 yrs Sex: Female : 1965 Arrival Date: 10/28/2022 Time: 16:05 Bed IW3 Private MD: Trent Irving H Diagnosis: COPD/ Chronic obstructive pulmonary disease with (acute) exacerbation Presentation: 10/28 17:17 Chief complaint: Patient states: breathing difficulty that began 1 wk ago. Coronavirus ss screen: Client denies travel out of the [place] in the last 14 days. Ebola Screen: Patient denies exposure to infectious person. Patient denies travel to an Ebola-affected area in the 21 days before illness onset. Initial Sepsis Screen: Does the patient meet any 2 criteria? HR > 90 bpm. Does the patient have a suspected source of infection? No. Patient's initial sepsis screen is negative. Risk Assessment: Do you want to hurt yourself or someone else? Patient reports no desire to harm self or others. Onset of symptoms was October 21, 2022. 17:17 Method Of Arrival: Ambulatory ss 17:17 Acuity: EMERALD 3 ss Historical: - Allergies: 17:21 Doxycycline; ss 17:21 kiwi; ss 17:21 metoclopramide HCl; ss 17:21 orange juice; ss 17:21 Reglan; ss - PMHx: 17:21 Asthma; CHF; COPD; Crohn's; Diabetes - NIDDM; Hypertension; ss - PSHx: 17:21 Appendectomy; Cholecystectomy; Shoulder; Ligation of fallopian tube; ss - Immunization history:: Client reports receiving the 2nd dose of the Covid vaccine. - Social history:: Smoking status: Patient denies any tobacco usage or history of. Assessment: 19:25 [facility] 19:26 Reassessment: pt left the ED will call pt to notifiy that she has prescriptions and she bb can pick them up at her convience. Vital Signs: 17:17 BP 145 / 90; Pulse 98; Resp 19; Pulse Ox 93% on R/A; ss 17:21 Temp 97.7(O); Weight 147.42 kg; Height 5 ft. 3 in. (160.02 cm); ss 17:21 Body Mass Index 57.57 (147.42 kg, 160.02 cm) ED Course: 16:05 Patient arrived in ED. am2 16:06 Trent Irving DO is Private Physician. am2 17:13 Evelia Haque FNP-C is [facility]. snw 17:13 Duncan Delaney MD is Attending Physician. snw 17:21 Triage completed. ss 17:21 Arm band placed on right wrist. ss 18:18 Chest Pa And Lat (2 Views) XRAY In Process Unspecified. EDMS 18:50 Trent Irving DO is Referral Physician. snw Administered Medications: No medications were administered Outcome: 18:50 Discharge ordered by . snw 19:27 Patient left the ED. bb Signatures: Dispatcher [employer] EDMS Evelia Haque FNP-C COAL HANDLER-Csnw Soraida Lovell RN RN bb Sharonda Soliz RN RN Pham Duncan [facility] Adamaris Crooks tw5
[2022-10-28 19:30] VITALS: BP 145/90; O2SAT 93
[2022-10-28 19:31] VITALS: TEMP 97.7
== END 2022-10-28 19:27 | disposition home or self-care (01) ==
LOC: ER 15:47
DX: J44.1 Chronic obstructive pulmonary disease with (acute) exacerbation (principal); I10 Essential (primary) hypertension; Z88.1 Allergy status to other antibiotic agents; Z88.8 Allergy status to other drugs, medicaments and biological substances; Z91.018 Allergy to other foods
CPT/HCPCS: 71046

== ENCOUNTER 2022-12-04 21:56 | Emergency (ER) | payer OTHER ==
--- OUTSIDE RECORDS SUMMARY | 2022-12-04 22:00 | XMS REPORT | Clinical Summary ---
:1965 Author Organization [facility] MD [facility] Address [address] [place] [address] Care Team Providers Name Role Phone Bina Obando MD Unavailable Kenya Agarwal MD Primary Care Provider Trent Irving MD Unavailable Randall Sheriff MD Unavailable Vignesh Waddell MD Unavailable Naa Miller MD Unavailable Tapan Harper MD Unavailable Rafael Rosas MD Unavailable Allergies Active Allergy Reactions Severity Noted Date Comments Doxycycline GI Intolerance, High 01/14/2015 Other reacti on(s): Nausea And Vomiting Unknown Other reaction( s): n/v, Nausea/Vomiting , Unknown Kiwi (Actinidia Anaphylaxis, Other High 01/25/2022 Chinensis) (See Comments) Metoclopramide GI Intolerance, High 01/14/2015 Other reac tion(s): Nausea And UNKNOWN, Unknow n - See Vomiting, Other comments (See Comments) Told by anest hesiologist that she should add to her allergies f ollowing a procedure Told by anesthe siologist that she should add to her allergies f ollowing a procedure Told by anesthe siologist that she should add to her allergies f ollowing a procedure [place] Juice Nausea And Low 04/18/2021 Vomiting, GI Intolerance Medications Medication Sig Dispensed Refills Start Date End Date Status albuterol (VENTOLIN INHALE 2 PUFFS 0 10/19/2022 Active HFA,PROAIR HFA) 90 THROUGH MOUTH mcg/puff inhaler EVERY 6 HOURSFOR 30 DAYS allopurinol (ZYLOPRIM) TAKE 1 TABLET BY 0 09/01/2022 Active 300 mg tablet MOUTH TWICE DAILY ALPRAZolam (XANAX) 2 mg as needed. 0 10/20/2022 Active tablet amLODIPine (NORVASC) 5 mg TAKE 1 TABLET BY 0 022 Active tablet MOUTH EVERY DAY atorvastatin (LIPITOR) 20 TAKE 1 TABLET BY 0 022 Active mg tablet MOUTH EVERY DAY cloNIDine HCl (CATAPRES) TAKE 1 TABLET BY 0 11/09/19 23 Active 0.2 mg tablet MOUTH THREE TIMES DAILY cetirizine (ZyrTEC) 10 mg TAKE 1 TABLET BY 0 022 Active tablet MOUTH ONCE DAILY NEEDED FOR ALLERGIES colchicine (COLCRYS) 0.6 TAKE 1 TABLET BY 0 09/21/20 22 Active mg tablet MOUTH DAILY diclofenac sodium APPLY TOPICALLY 0 10/21/2022 Active (Voltaren) 1 % gel TO THE AFFECTED AREA THREE TIMES DAILY dicyclomine (BENTYL) 10 TAKE 1 CAPSULE 0 10/12/2022 Active mg capsule BY MOUTH EVERY 8 HOURS Trelegy Ellipta INHALE 1 PUFF BY 0 09/18/2022 Active 100-62.5-25 mcg dsdv MOUTH EVERY DAY gabapentin (NEURONTIN) TAKE 1 TABLET BY 0 10/21/2022 Active 600 mg tablet MOUTH IN THE MORNING AND AT NOON AND IN THE EVENING hydrALAZINE (APRESOLINE) TAKE 1 TABLET BY 0 10/01/20 22 Active 100 mg tablet MOUTH THREE TIMES DAILY hydroCHLOROthiazide 0 11/09/2022 Active (MICROZIDE) 12.5 mg capsule HYDROcodone-acetaminophen TAKE 1 TABLET BY 0 022 Active (NORCO) 7.5 mg-325 mg per MOUTH EVERY 6 tablet HOURS NEEDED FOR PAIN OR CHRONIC PAIN hydrocortisone 1 % crpe APPLY TWICE 0 09/10/2022 Active DAILY IN AND AROUND THE RECTUM AFTER SITZ BATH hydrocortisone UNWRAP AND 0 11/06/2022 Act rosales (ANUSOL-HC) 25 mg INSERT ONE (1) suppository SUPPOSITORY IN THE RECTUM TWICE A DAY. HumuLIN 70/30 U-100 0 11/16/2022 Active Insulin 100 unit/mL (70-30) injection Victoza 2-Ze 0.6 mg/0.1 ADMINISTER 1.8 0 10/01/2022 Active mL (18 mg/3 mL) pnij MG UNDER THE injection SKIN EVERY DAY lisinopril TAKE 1/2 TABLET 0 10/01/2022 Ac tive (PRINIVIL,ZESTRIL) 40 mg BY MOUTH TWICE tablet DAILY lubiprostone (AMITIZA) 24 TAKE 1 CAPSULE 0 2 Active MCG capsule BY MOUTH TWICE DAILY mesalamine (APRISO) 0.375 TAKE 4 CAPSULES 0 08/24/20 22 Active gram 24 hr capsule BY MOUTH DAILY metFORMIN (GLUCOPHAGE) TAKE 1 TABLET BY 0 09/21/2022 Active 1000 mg tablet MOUTH IN THE MORNING AND IN THE EVENING WITH MEALS metoprolol tartrate TAKE 1 TABLET BY 0 11/03/2022 Active (LOPRESSOR) 100 mg tablet MOUTH TWICE DAILY nitroglycerin (NITROSTAT) PLACE 1 TABLET 0 2 Active 0.4 mg SL tablet UNDER THE TONGUE EVERY 5 MINUTES FOR CHEST PAIN. pantoprazole (PROTONIX) TAKE 1 TABLET BY 0 2 Active 40 mg EC tablet MOUTH DAILY BD Devorah 2nd Gen Pen USE DIRECTED. 0 10/05/2022 Active Needle 32 gauge x 5/32" ndle rizatriptan (MAXALT-MORTGAGE ORIGINATOR) DISSOLVE 1 0 08/25/2022 Active 5 mg disintegrating TABLET ON THE tablet TONGUE AT ONSET NEEDED FOR MIGRAINE. MAY REPEAT IN 2 HOURS. MAY REPEAT IN 2 HOURS NEEDED Motegrity 2 mg tab TAKE 1 TABLET BY 0 07/26/2022 Active MOUTH DAILY spironolactone TAKE 1 TABLET BY 0 10/19/2022 Active (ALDACTONE) 25 mg tablet MOUTH EVERY DAY sucralfate (CARAFATE) 1 g TAKE 1 TABLET BY 0 022 Active tablet MOUTH TWICE DAILY insulin syringe-needle USE TWICE DAILY 0 10/01/2022 Active U-100 1 mL 31 gauge x WITH MEALS. 03/16 syrg triamcinolone (KENALOG) APPLY TOPICALLY 0 08/28/2022 Active 0.1% cream TO THE AFFECTED AREA TWICE DAILY zolpidem (AMBIEN) 10 mg TAKE 1 TABLET BY 0 2 Active tablet MOUTH AT BEDTIME NEEDED FOR INSOMNIA BD Insulin Syringe U-500 USE 1 SYRINGE 0 03/03/20 22 Active 1/2 mL 31 gauge x 15/64" DIRECTED TWICE syrg DAILY WITH MEALS ondansetron (ZOFRAN-ODT) Dissolve 1 30 tablet 0 11/26/2022 Active 8 mg disintegrating tablet (8 mg) on tabletIndications: the tongue every Adenocarcinoma of 8 (eight) hours nasopharynx as needed for nausea. HYDROmorphone (DILAUDID) Take 1 tablet (2 60 tablet 0 12/02/19 23 Active 2 mg tabletIndications: mg) by mouth Adenocarcinoma of every 4 (four) nasopharynx hours as needed (cancer pain). Active Problems Problem Noted Date Adenoid cystic carcinoma of nasopharynx, NOS 3 Cancer Staging: Clinical stage from 10/01: Stage WINDY (cT4, cN0, cM0) - Unsigned Essential hypertension 02/15/2020 Gastroesophageal reflux disease 07/28/2018 Hyperlipidemia 07/28/2018 Type 2 diabetes mellitus without complication 07/28/20 18 Encounters Date Type Specialty Care Team Description 12/04/2022 Hospital Encounter Matthew Benitez MD Hess, Jennifer Leigh, FNP 12/04/2022 Telephone Head and Neck Job Berman APN 12/04/2022 Multidisciplinary Visit Head and Neck Job Berman APN 12/04/2022 Telephone Radiation Dimas, Oncology Maria Luz Lund RN 12/02/2022 Orders Only Radiation Lindy Montenegro Adenocarcinom a of Oncology BALJINDER Sotelo nasopharynx (Pr imary Dx) 12/02/2022 Orders Only Radiation Winter Luu Adenocarcinoma of Oncology MD Gini nasopharynx (Pr imary Dx) 11/30/2022 Ancillary Procedure Radiology Lorena Hdez Adenoc arcinoma of [facility] nasopharynx 11/30/2022 Travel 11/27/2022 Ancillary Procedure Radiology Lindy [place] Adenoc arcinoma of nasopharynx; BALJINDER Sotelo Malignant neopl asm of overlapping sites of nasopharynx 11/27/2022 Travel 11/26/2022 Consult Thoracic Kenny Power, Adenocarcinoma of Medicine MD Vaibhav nasopharynx 11/26/2022 Consult Radiation Winter Luu Adenocarcinoma of nasopharynx; Oncology 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 11/26/2022 Travel 11/24/2022 Lab Requisition David Nunez MD Xu, Ya, MD 11/23/2022 Telephone Oncology Ofe Bardales RN 11/22/2022 Orders Only Dental Oncology Berkley Aguayo, Encounter for MD observation for other suspected condition ruled out (Primary Dx) 11/20/2022 Telephone Surgical Elana Child, manufacturing inspector 11/17/2022 Office Visit Head and Neck Kenya Agarwal of Surgery MD Sarah nasopharynx 11/17/2022 NPR Patient Access Kenya Agarwal MD 11/17/2022 Travel 11/16/2022 Orders Only Head and Neck McAnulty, Adenocarcinoma of Surgery Red Costa APN nasopharynx ( Primary Dx) 11/12/2022 Orders Only Head and Neck Yinka, Surgery BALJINDER Branch 11/12/2022 Orders Only Head and Neck McAnulty, Adenocarcinoma of nasopharynx (Primary Dx); Surgery Red Costa APN Malignant jabier plasm of lateral wall of nasopharynx after 12/04/2021 Surgical History Surgery Date Site/Laterality Comments APPENDECTOMY [id number] COLONOSCOPY [id number] CHOLECYSTECTOMY [id number] KNEE ARTHROPLASTY Right SHOULDER SURGERY 050@2010 Left UPPER GASTROINTESTINAL ENDOSCOPY [id number] SECTION, CLASSIC 11/01/1984 - 10/31/1985 PARTIAL HYSTERECTOMY 03/01/2012 - 03/31/2012 MYRINGOTOMY WITH ASPIRATION AND 11/01/2019 - 10/31/2020 INSERTION PE TUBES Medical History Medical History Date Comments Hypertension [id number] Hyperlipidemia [id number] Hearing loss [id number] Allergic rhinitis 12087614 Difficulty talking [id number] Swallowing problem 54687106 Asthma 27077829 Chronic bronchitis 00923643 Dependence on continuous positive airway 56027795 pressure ventilation Fatty liver 46970231 Gastric reflux 86916059 Gastric ulcer 34177717 Crohn's disease 27610345 Gout 82777698 Type 2 diabetes mellitus 3870657 Anxiety 81420704 Chronic obstructive pulmonary disease On home supplemental oxygen Family History Medical History Relation Name Comments Diabetes Father Cancer Maternal Uncle Diabetes Mother Diabetes Paternal Grandfather Leukemia Paternal Grandfather Diabetes Paternal Grandmother Relation Name Status Comments Father Maternal Uncle Mother Paternal Grandfather Paternal Grandmother Social History Tobacco Use Types Packs/Day Years Used Date Smoking Tobacco: Former Cigarettes 0.3 0.5 Quit : 1987 Smokeless Tobacco: Never Tobacco Cessation: Counseling Given: Not Answered Alcohol Use Standard Drinks/Week Comments Not Currently 0 (1 standard drink = 0.6 oz pure alcoho l) Sex Assigned at Date Recorded Female 11/12/2022 2:07 PM HOSPITAL CLINIC ASSISTANT Job Start Date Occupation Industry Not on file Not on file Not on file COVID-19 Exposure Response Date Recorded In the last 10 days, have you been in contact with No / Unsu re 11/30/2022 8:45 AM HOSPITAL CLINIC ASSISTANT someone who was confirmed or suspected to have Coronavirus/COVID-19? Obstetrics History Last Filed Vital Signs Vital Sign Reading Time Taken Comments Blood Pressure 147/88 11/26/2022 10:14 AM HOSPITAL CLINIC ASSISTANT Pulse 81 11/26/2022 10:14 AM HOSPITAL CLINIC ASSISTANT Temperature 36.6 C (97.9 F) 11/26/2022 10:14 AM HOSPITAL CLINIC ASSISTANT Respiratory Rate 16 11/26/2022 10:14 AM HOSPITAL CLINIC ASSISTANT Oxygen Saturation 94% 11/26/2022 11:52 AM HOSPITAL CLINIC ASSISTANT Inhaled Oxygen Concentration - - Weight 146 kg (321 lb 14 oz) 11/30/2022 9:12 AM HOSPITAL CLINIC ASSISTANT Height 157.5 cm (5' 2.01") 11/27/2022 1:16 PM HOSPITAL CLINIC ASSISTANT Body Mass Index 58.86 11/27/2022 1:16 PM HOSPITAL CLINIC ASSISTANT Plan of Treatment Date Type Specialty Care Team Description 12/11/2022 Clinical Support Winter Alvarado MD [facility] [place], [place] [address] (Wo rk) 12/11/2022 Appointment Dental Oncology Nabil Hoang, BOBBY [address] [place] [address] Benito Saini DDS [address] [place] [address] 12/14/2022 Appointment Radiation Oncology Winter Luu MD [address] [place], [place] [address] (Wo rk) 12/29/2022 Appointment Ophthalmology Namrata Mcgrath MD [address] [place], [place] [address] (Wo rk) 12/29/2022 Appointment Speech Pathology Juaquin Berman, INTELLECTUAL PROPERTY MANAGER [address] [place] [address] Joann Mann, PhD [address] [place] [address] 01/18/2023 Consult Pain Medicine Rogerio Kramer MD [address] [place], [place] [address] (Wo rk) Health Maintenance Due Date Last Done Comments COVID-19 Vaccination (4 - Booster 09/05/2021 07/11/2021, , for Moderna series) 12/03/2020 Procedures Procedure Name Priority Date/Time Associated Diagnosis Comme nts HP MOLECULAR BLOOD Routine 12/04/2022 Results f or COLLECTION 10:56 AM HOSPITAL CLINIC ASSISTANT this procedure are in the results section. MRI SKULL BASE WITH AND Routine 11/30/2022 Adenocarcinoma of Results for WITHOUT CONTRAST 11:12 AM HOSPITAL CLINIC ASSISTANT nasopharynx this proced ure are in the results section. PETCT CONTRAST ENHANCED Routine 11/27/2022 3:57 Adenocarcinoma of Results for INITIAL TREATMENT STRATEGY PM HOSPITAL CLINIC ASSISTANT nasop harynx this procedure Malignant neoplasm are in th e of overlapping sites results of nasopharynx section. POC GLUCOSE SCREEN Routine 11/27/2022 1:06 Result s for PM HOSPITAL CLINIC ASSISTANT this procedure are in the results section. POC GLUCOSE SCREEN Routine 11/27/2022 Results f or 12:29 PM HOSPITAL CLINIC ASSISTANT this procedure are in the results section. FRACTIONATED BILIRUBIN Routine 11/26/2022 1:07 Adenocarcinoma of Results for PM HOSPITAL CLINIC ASSISTANT nasopharynx this procedure are in the results section. TOTAL PROTEIN Routine 11/26/2022 1:07 Adenocarcinoma of Result s for PM HOSPITAL CLINIC ASSISTANT nasopharynx this procedure are in the results section. ASPARTATE AMINOTRANSFERASE Routine 11/26/2022 1:07 Adenocarcin yanely of Results for PM HOSPITAL CLINIC ASSISTANT nasopharynx this procedure are in the results section. ALANINE AMINOTRANSFERASE Routine 11/26/2022 1:07 Adenocarcinom a of Results for PM HOSPITAL CLINIC ASSISTANT nasopharynx this procedure are in the results section. ALKALINE PHOSPHATASE Routine 11/26/2022 1:07 Adenocarcinoma of Results for PM HOSPITAL CLINIC ASSISTANT nasopharynx this procedure are in the results section. ALBUMIN LEVEL Routine 11/26/2022 1:07 Adenocarcinoma of Result s for PM HOSPITAL CLINIC ASSISTANT nasopharynx this procedure are in the results section. CALCIUM LEVEL TOTAL Routine 11/26/2022 1:07 Adenocarcinoma of Results for PM HOSPITAL CLINIC ASSISTANT nasopharynx this procedure are in the results section. .GLOMERULAR FILTRATION Routine 11/26/2022 1:07 Adenocarcinoma of Results for RATE PM HOSPITAL CLINIC ASSISTANT nasopharynx this procedure are in the results section. SERUM CREATININE Routine 11/26/2022 1:07 Adenocarcinoma of Res ults for PM HOSPITAL CLINIC ASSISTANT nasopharynx this procedure are in the results section. ELECTROLYTE PANEL Routine 11/26/2022 1:07 Adenocarcinoma of Re sults for PM HOSPITAL CLINIC ASSISTANT nasopharynx this procedure are in the results section. BLOOD UREA NITROGEN Routine 11/26/2022 1:07 Adenocarcinoma of Results for PM HOSPITAL CLINIC ASSISTANT nasopharynx this procedure are in the results section. GLUCOSE LEVEL Routine 11/26/2022 1:07 Adenocarcinoma of Result s for PM HOSPITAL CLINIC ASSISTANT nasopharynx this procedure are in the results section. MANUAL DIFFERENTIAL Routine 11/26/2022 1:07 Adenocarcinoma of Results for PM HOSPITAL CLINIC ASSISTANT nasopharynx this procedure are in the results section. Results CBC Routine 11/26/2022 1:07 Adenocarcinoma of Results for PM HOSPITAL CLINIC ASSISTANT nasopharynx this procedure are in the results section. PROTHROMBIN TIME Routine 11/26/2022 1:07 Adenocarcinoma of Res ults for PM HOSPITAL CLINIC ASSISTANT nasopharynx this procedure are in the results section. APTT Routine 11/26/2022 1:07 Adenocarcinoma of Results for PM HOSPITAL CLINIC ASSISTANT nasopharynx this procedure are in the results section. THYROID STIMULATING Routine 11/26/2022 1:07 Adenocarcinoma of Results for HORMONE PM HOSPITAL CLINIC ASSISTANT nasopharynx this procedure are in the results section. VITAMIN D 25 HYDROXY LEVEL Routine 11/26/2022 1:07 Adenocarcin yanely of Results for PM HOSPITAL CLINIC ASSISTANT nasopharynx this procedure are in the results section. URIC ACID Routine 11/26/2022 1:07 Adenocarcinoma of Results for PM HOSPITAL CLINIC ASSISTANT nasopharynx this procedure are in the results section. PHOSPHORUS LEVEL Routine 11/26/2022 1:07 Adenocarcinoma of Res ults for PM HOSPITAL CLINIC ASSISTANT nasopharynx this procedure are in the results section. MAGNESIUM LEVEL Routine 11/26/2022 1:07 Adenocarcinoma of Resu lts for PM HOSPITAL CLINIC ASSISTANT nasopharynx this procedure are in the results section. LACTATE DEHYDROGENASE Routine 11/26/2022 1:07 Adenocarcinoma o f Results for PM HOSPITAL CLINIC ASSISTANT nasopharynx this procedure are in the results section. FREE THYROXINE Routine 11/26/2022 1:07 Adenocarcinoma of Resul ts for PM HOSPITAL CLINIC ASSISTANT nasopharynx this procedure are in the results section. COMPREHENSIVE METABOLIC Routine 11/26/2022 1:07 Adenocarcinoma of PANEL PM HOSPITAL CLINIC ASSISTANT nasopharynx COMPLETE BLOOD COUNT W/ Routine 11/26/2022 1:07 Adenocarcinoma of DIFFERENTIAL PM HOSPITAL CLINIC ASSISTANT nasopharynx NGS BLOOD CONTROL Routine 11/26/2022 1:07 Adenocarcinoma of Results for PM HOSPITAL CLINIC ASSISTANT nasopharynx this procedure are in the results section. AP IHC HER2/ARCENIO MATERIAL Routine 11/26/2022 Adenocarcinoma o f REQUEST 12:43 PM HOSPITAL CLINIC ASSISTANT nasopharynx AP IHC PD-L1 MATERIAL Routine 11/26/2022 Adenocarcinoma of REQUEST 12:43 PM HOSPITAL CLINIC ASSISTANT nasopharynx ANA CRISTINA GRIFFIN PTEN MUTATION Routine 11/26/2022 Adenocarcinoma of Res ults for MATERIAL REQUEST 12:43 PM HOSPITAL CLINIC ASSISTANT nasopharynx this proced ure are in the results section. ANA CRISTINA GRIFFIN MTOR MATERIAL Routine 11/26/2022 Adenocarcinoma of Res ults for REQUEST 12:43 PM HOSPITAL CLINIC ASSISTANT nasopharynx this procedure are in the results section. ANA CRISTINA GRIFFIN ERBB2 MUTATION Routine 11/26/2022 Adenocarcinoma of Re sults for ANALAYSIS MATERIAL REQUEST 12:43 PM HOSPITAL CLINIC ASSISTANT nasopharynx t his procedure are in the results section. ANA CRISTINA GRIFFIN EGFR MUTATION Routine 11/26/2022 Adenocarcinoma of Res ults for MATERIAL REQUEST 12:43 PM HOSPITAL CLINIC ASSISTANT nasopharynx this proced ure are in the results section. ANA CRISTINA GRIFFIN ALK MUTATION Routine 11/26/2022 Adenocarcinoma of Resu lts for ANALAYSIS MATERIAL REQUEST 12:43 PM HOSPITAL CLINIC ASSISTANT nasopharynx t his procedure are in the results section. ANA CRISTINA GRIFFIN NTRK3 FUSION Routine 11/26/2022 Adenocarcinoma of Resu lts for ANALYSIS MATERIAL REQUEST 12:43 PM HOSPITAL CLINIC ASSISTANT nasopharynx th is procedure are in the results section. ANA CRISTINA GRIFFIN NTRK2 FUSION Routine 11/26/2022 Adenocarcinoma of Resu lts for ANALYSIS MATERIAL REQUEST 12:43 PM HOSPITAL CLINIC ASSISTANT nasopharynx th is procedure are in the results section. ANA CRISTINA GRIFFIN NTRK1 FUSION Routine 11/26/2022 Adenocarcinoma of Resu lts for ANALYSIS MATERIAL REQUEST 12:43 PM HOSPITAL CLINIC ASSISTANT nasopharynx th is procedure are in the results section. MANUAL DIFFERENTIAL Routine 11/17/2022 Adenocarcinoma of Res ults for 12:11 PM HOSPITAL CLINIC ASSISTANT nasopharynx this procedure are in the results section. Results CBC Routine 11/17/2022 Adenocarcinoma of Results fo r 12:11 PM HOSPITAL CLINIC ASSISTANT nasopharynx this procedure are in the results section. FRACTIONATED BILIRUBIN Routine 11/17/2022 Adenocarcinoma of Results for 12:11 PM HOSPITAL CLINIC ASSISTANT nasopharynx this procedure are in the results section. TOTAL PROTEIN Routine 11/17/2022 Adenocarcinoma of Results f or 12:11 PM HOSPITAL CLINIC ASSISTANT nasopharynx this procedure are in the results section. ASPARTATE AMINOTRANSFERASE Routine 11/17/2022 Adenocarcinoma of Results for 12:11 PM HOSPITAL CLINIC ASSISTANT nasopharynx this procedure are in the results section. ALANINE AMINOTRANSFERASE Routine 11/17/2022 Adenocarcinoma o f Results for 12:11 PM HOSPITAL CLINIC ASSISTANT nasopharynx this procedure are in the results section. ALKALINE PHOSPHATASE Routine 11/17/2022 Adenocarcinoma of Re sults for 12:11 PM HOSPITAL CLINIC ASSISTANT nasopharynx this procedure are in the results section. ALBUMIN LEVEL Routine 11/17/2022 Adenocarcinoma of Results f or 12:11 PM HOSPITAL CLINIC ASSISTANT nasopharynx this procedure are in the results section. CALCIUM LEVEL TOTAL Routine 11/17/2022 Adenocarcinoma of Res ults for 12:11 PM HOSPITAL CLINIC ASSISTANT nasopharynx this procedure are in the results section. .GLOMERULAR FILTRATION Routine 11/17/2022 Adenocarcinoma of Results for RATE 12:11 PM HOSPITAL CLINIC ASSISTANT nasopharynx this procedure are in the results section. SERUM CREATININE Routine 11/17/2022 Adenocarcinoma of Result s for 12:11 PM HOSPITAL CLINIC ASSISTANT nasopharynx this procedure are in the results section. ELECTROLYTE PANEL Routine 11/17/2022 Adenocarcinoma of Resul ts for 12:11 PM HOSPITAL CLINIC ASSISTANT nasopharynx this procedure are in the results section. BLOOD UREA NITROGEN Routine 11/17/2022 Adenocarcinoma of Res ults for 12:11 PM HOSPITAL CLINIC ASSISTANT nasopharynx this procedure are in the results section. GLUCOSE LEVEL Routine 11/17/2022 Adenocarcinoma of Results f or 12:11 PM HOSPITAL CLINIC ASSISTANT nasopharynx this procedure are in the results section. PROLACTIN Routine 11/17/2022 Adenocarcinoma of Results fo r 12:11 PM HOSPITAL CLINIC ASSISTANT nasopharynx this procedure are in the results section. INSULIN LIKE GROWTH FACTOR Routine 11/17/2022 Adenocarcinoma of Results for 1 12:11 PM HOSPITAL CLINIC ASSISTANT nasopharynx this procedure are in the results section. TOTAL T3 Routine 11/17/2022 Adenocarcinoma of Results fo r 12:11 PM HOSPITAL CLINIC ASSISTANT nasopharynx this procedure are in the results section. FREE THYROXINE Routine 11/17/2022 Adenocarcinoma of Results for 12:11 PM HOSPITAL CLINIC ASSISTANT nasopharynx this procedure are in the results section. THYROID STIMULATING Routine 11/17/2022 Adenocarcinoma of Res ults for HORMONE 12:11 PM HOSPITAL CLINIC ASSISTANT nasopharynx this procedure are in the results section. LUTEINIZING HORMONE Routine 11/17/2022 Adenocarcinoma of Res ults for 12:11 PM HOSPITAL CLINIC ASSISTANT nasopharynx this procedure are in the results section. FOLLICLE STIMULATING Routine 11/17/2022 Adenocarcinoma of Re sults for HORMONE LEVEL 12:11 PM HOSPITAL CLINIC ASSISTANT nasopharynx this procedure are in the results section. TESTOSTERONE LEVEL Routine 11/17/2022 Adenocarcinoma of Resu lts for 12:11 PM HOSPITAL CLINIC ASSISTANT nasopharynx this procedure are in the results section. ESTRADIOL LEVEL Routine 11/17/2022 Adenocarcinoma of Results for 12:11 PM HOSPITAL CLINIC ASSISTANT nasopharynx this procedure are in the results section. ADRENOCORTICOTROPIC Routine 11/17/2022 Adenocarcinoma of Res ults for HORMONE 12:11 PM HOSPITAL CLINIC ASSISTANT nasopharynx this procedure are in the results section. CORTISOL Routine 11/17/2022 Adenocarcinoma of Results fo r 12:11 PM HOSPITAL CLINIC ASSISTANT nasopharynx this procedure are in the results section. PROTHROMBIN TIME Routine 11/17/2022 Adenocarcinoma of Result s for 12:11 PM HOSPITAL CLINIC ASSISTANT nasopharynx this procedure are in the results section. APTT Routine 11/17/2022 Adenocarcinoma of Results fo r 12:11 PM HOSPITAL CLINIC ASSISTANT nasopharynx this procedure are in the results section. COMPLETE BLOOD COUNT W/ Routine 11/17/2022 Adenocarcinoma of DIFFERENTIAL 12:11 PM HOSPITAL CLINIC ASSISTANT nasopharynx COMPREHENSIVE METABOLIC Routine 11/17/2022 Adenocarcinoma of PANEL 12:11 PM HOSPITAL CLINIC ASSISTANT nasopharynx HEPATITIS C VIRUS ANTIBODY Routine 11/17/2022 Adenocarcinoma of Results for 12:11 PM HOSPITAL CLINIC ASSISTANT nasopharynx this procedure are in the results section. PATHOLOGY OUTSIDE Routine 10/16/2022 Results fo r INTERPRETATION this procedur e are in the results section. after 12/04/2021 Results Molecular Diagnostics Specimen Collection -FFPE (12/04/2022 10:56 AM HOSPITAL CLINIC ASSISTANT) Patholo gist Method Time Signature Molecular Yes OR [facility] (Received) [facility] Jael Ap Link [id number] [facility] Block Number BLANK [facility] (Qualitative) [facility] Outside [id number] [facility] (Qualitative) [facility] CENTER Specimen Anatomical Collection Method Collection Time Receive d Time (Source) Location / / Volume Laterality FFPE 12/04/2022 10:56 12/04/2022 AM HOSPITAL CLINIC ASSISTANT 10:56 AM HOSPITAL CLINIC ASSISTANT Lorena Hdez CARTOGRAPHIC AIDE [place] MD NONBLOOD COLLECTIO NS Performing Organization Address City/State/ZIP Code Phon e Number [facility] Unless otherwise noted, [place] [address] [place] all lab tests performed by: Division of Pathology and Laboratory Medicine [address] [place] [address] MRI Skull Base with and without Contrast (11/30/2022 11:12 AM HOSPITAL CLINIC ASSISTANT) Anatomical Region Laterality Modality Head Magnetic Resonance Specimen (Source) Anatomical Collection Method Collection Time Re ceived Time Location / / Volume Laterality 12/01/2022 9:21 AM HOSPITAL CLINIC ASSISTANT Impressions 12/01/2022 1:06 PM HOSPITAL CLINIC ASSISTANT 1. 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 2. Tumor likely involves the lesser wi ng of the left sphenoid bone. 3. No lateral retropharyngeal or visua lized cervical adenopathy. 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 Left eye double vision. Difficulty swallowing. Indication: staging Comparison: PET/CT 11/27/2022. Technique: Multiplanar MR images of the face were obtained before and after intravenous contrast administration. Axial T-weighted images of the neck were also obtained. Findings: The left nasopharyngeal carcinoma extend s to midline and probably slightly past midline. The tumor measures 3.5 x 3.1 cm on image 27 of series 17. Enhancement of left foramen ovale and left V3 identifie d. The bone of the left middle cranial f yahaira is probably involved/lesser sphenoid wing as marked on image 27 of series 14. Enhancement at left vidian canal is suspected on image 25 of series 17. Enhance ment of left jugular foramen pars nervos a is marked on image 23 of series 15. Meckel cave, cavernous sinus and foramen rotundum demonstrate no abnormal enhancement. Sclerosis of the cortex of the clivus or possibly infiltration of the bone is suspected. There is no lateral retropharyngeal or c ervical adenopathy. Focal hyperintensity in the left neck on image 39 of series 17 is reviewed with T2 hyperintensity is likely artifactual. There is no corresponding finding on axial series or on PET/CT. Procedure Note Elana Rae MD - 12/01/2022Formatting o f this note might be different from the original. 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 Left eye double vision. Difficulty swallowing. Indication: staging Comparison: PET/CT 11/27/2022. Technique: Multiplanar MR images of the face were obtained before and after intravenous contrast administration. Axial T-weighted images of the neck were also obtained. Findings: The left nasopharyngeal carcinoma extend s to midline and probably slightly past midline. The tumor measures 3.5 x 3.1 cm on image 27 of series 17. Enhancement of left foramen ovale and left V3 identified. The bone of the left middle cranial fossa is probably in volved/lesser sphenoid wing as marked on image 27 of series 14. Enhancement at left vidian canal is suspected on image 25 of series 17. Enhancement of left jugular foramen pars nervosa is marked on image 23 of se lori 15. Meckel cave, cavernous sinus and foramen rotundum demonstrate no abnormal enhancement. Sclerosis of the cortex of the clivus or possibly infiltration of the bone is suspected. There is no lateral retropharyngeal or c ervical adenopathy. Focal hyperintensity in the left neck on image 39 of series 17 is reviewed with T2 hyperintensity is likely artifactual. There is no corresponding finding on axial series or on PET/CT. IMPRESSION: 1. 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 2. Tumor likely involves the lesser wing of the left sphenoid bone. 3. No lateral retropharyngeal or visuali zed cervical adenopathy. Lorena Garza Hdez CARTOGRAPHIC AIDE IMG MRI ORDERABLES PETCT Contrast Enhanced Initial Treatment Strategy (11/27/2022 3:57 PM HOSPITAL CLINIC ASSISTANT) Anatomical Region Laterality Modality Whole Body Positron Emission To mography (PET) Specimen (Source) Anatomical Collection Method Collection Time Re ceived Time Location / / Volume Laterality 11/30/2022 8:31 AM HOSPITAL CLINIC ASSISTANT Impressions 11/30/2022 8:38 AM HOSPITAL CLINIC ASSISTANT Subtle activity associated with subtle asymmetric fullness in posterior left nasal pharynx is compatible with reported primary tumor. No suspicious activity to suggest regional jeremiah or distant metastases. Narrative 11/30/2022 8:38 AM HOSPITAL CLINIC ASSISTANT FULL RESULT: Examination: Contrast-Enhanced FDG PET /CT, 11/27/2022 3:57 PM Clinical History: 57-year-old female wit h recently diagnosed adenoid cystic carcinoma of the nasopharynx Indication: Staging/initial treatment st rategy Comparison: No prior imaging studies are available for comparison at time dictation Technique: F-18 fluorodeoxyglucose (FD G) 9.2 mCi was administered intravenously via left antecubital fossa vein IV. To allow for distribution and uptake of radiotracer, the patient was asked to rest quietly for approximately 76 minutes. PET/CT imaging was performed from the thoracic inlet to proximal thighs with additional images from vertex to below aortic arch. CT scanning was done for attenua tion correction, image registration, and diagnosis with scan parameters optimized to minimize radiation exposure to the patient. The CT portion of the examination was performed with intravenous contrast . SUV measurements are reported as maxim um SUV based on body weight unless otherwise specified. There are technical differences which may result in increased scan to scan variation of semiquantitative measurements. Findings: Head and Neck: There is subtle asymmetri c fullness with subtle activity in region of posterior left nasal pharynx with SUV 5 on image 46 No focal active or suspicious cervical l ymphadenopathy. No focal abnormal activity within the brain. Chest: No focal hypermetabolic or suspic ious pulmonary parenchymal abnormalities. No focal hypermetabolic or suspicious mediastinal or axillary lymphadenopathy. Abdomen and Pelvis: No focal abnormal ac tivity with diffuse fatty change noted incidentally. Prior cholecystectomy. Adrenals, kidneys, pancreas, and spleen are unremarkable on contrast CT images and wit hout focal suspicious activity on corres ponding PET images. No hypermetabolic or suspicious abdominal or pelvic lymphadenopathy. Musculoskeletal: No focal hypermetabolic or suspicious lytic or blastic osseous lesions. Procedure Note Michael Herrera MD - 11/30/2022Format ting of this note might be different from the original. 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 To allow for distribution and uptake of radiotracer, the patient was asked to rest quietly for approximately 76 minutes. PE T/CT imaging was performed from the thoracic inlet to proximal thighs with additional images from vertex to below aortic arch. CT scanning was done for attenuation correction, image registration, and diagnosis with s can parameters optimized to minimize radiation exposure to the patient. The CT portion of the examination was performed with intravenous contrast. SUV measurements are reported as maximum SUV based on body we ight unless otherwise specified. There are technical differences which may result in increased scan to scan variation of semiquantitative measurements. Findings: Head and Neck: There is subtle asymmetri c fullness with subtle activity in region of posterior left nasal pharynx with SUV 5 on image 46 No focal active or suspicious cervical l ymphadenopathy. No focal abnormal activity within the brain. Chest: No focal hypermetabolic or suspic ious pulmonary parenchymal abnormalities. No focal hypermetabolic or suspicious mediastinal or axillary lymphadenopathy. Abdomen and Pelvis: No focal abnormal ac tivity with diffuse fatty change noted incidentally. Prior cholecystectomy. Adrenals, kidneys, pancreas, and spleen are unremarkable on contrast CT images and without focal suspicious activity on corresponding PET images. No hypermetabolic or suspicious abdominal or pelvic lymphadenopathy. Musculoskeletal: No focal hypermetabolic or suspicious lytic or blastic osseous lesions. IMPRESSION: Subtle activity associated with subtle a symmetric fullness in posterior left nasal pharynx is compatible with reported primary tumor. No suspicious activity to suggest regional jeremiah or distant metastases. Lindy GALE IMG PETCT ORDERABLES (ABNORMAL) POC Glucose Screen (11/27/2022 1:06 PM HOSPITAL CLINIC ASSISTANT)Only the most recent of2 resultswithin the time period is included. athologist Signature POC Glucose 254 (H) 70 - 99 [facility] mg/dL Comment: Capillary blood samples, e.g. obtained b y fingerstick, may have inaccurate results in patients with decreased peripheral blood flow. All POC Glucose screen test results, inc luding critical values, must be interpreted and evaluated in the context of the patients clinical findings. It is recommended to confirm any questionable test results by core lab methodology. Method description: All results are alex ured using Electrochemistry test methodology. The glucose in the sample mixes with the reagents on the test strip. The reaction produces an electric current. The amount of current produced is proportion al to the glucose concentration in the blood. PO Sample Type BLOOD POC [facility] Performing Lab [facility] POC TELCO R Comment: [facility] joe [facility] ,[facility] [place] [address], Vehicle Technician: Genesis Mueller MD Specimen Anatomical Collection Method Collection Time Receive d Time (Source) Location / / Volume Laterality Blood 11/27/2022 1:06 PM 3 1:06 HOSPITAL CLINIC ASSISTANT PM HOSPITAL CLINIC ASSISTANT Lindy GALE POCT ORDERABLES - DEVICE Performing Organization Address City/State/ZIP Code Phon e Number POC [facility] Unless otherwise noted, [place] [address] lab tests performed by: Division of Pathology and Laboratory Medicine [id number] Michelle Hodges (ABNORMAL) .Serum Creatinine (11/26/2022 1:07 PM HOSPITAL CLINIC ASSISTANT)Only the most recent of2 resultswithin the time period is included. athologist Signature Creatinine 0.46 (L) 0.51 - 0.95 [place] mg/dL Comment: Testing performed at [facility], [address] [place] [address] Specimen Anatomical Collection Method Collection Time Receive d Time (Source) Location / / Volume Laterality Blood 11/26/2022 1:07 PM 3 1:19 HOSPITAL CLINIC ASSISTANT PM HOSPITAL CLINIC ASSISTANT Lorena CHAPMAN LAB BLOOD ORDERABLES Performing Organization Address City/[facility]/ZIP [facility] [place] [address] [place] [address] NGS Blood Control (11/26/2022 1:07 PM HOSPITAL CLINIC ASSISTANT) athologist Signature Molecular Yes [facility] (Received) Specimen Anatomical Collection Method Collection Time Receive d Time (Source) Location / / Volume Laterality Blood 11/26/2022 1:07 PM 3 9:13 HOSPITAL CLINIC ASSISTANT AM HOSPITAL CLINIC ASSISTANT Lorena PEDERSONP MDA IP HP MOLECULAR DIAG IF ORDERABLES Performing Organization Address City/[facility]/ZIP Code Phon e Number [facility] Unless otherwise noted, [place], [place] [id number] [place] [address] all lab tests performed by: Division of Pathology and Laboratory Medicine [address] [place] [address] .CBC (11/26/2022 1:07 PM HOSPITAL CLINIC ASSISTANT)Only the most recent of2 resultswithin the time period is included. athologist Karrie WBC 8.2 4.0 - 11.0 [place] K/uL Comment: All components of the CBC perfo rmed at [facility], [address] [place] [address] 7757 3 RBC 4.90 4.00 - 5.50 M/uL [place] Comment: All components of the CBC perfo rmed at [facility], [address] [place] [address] 7757 3 Hgb 15.0 12.0 - 16.0 gm/dL [place] Comment: As part of CBC or as an individ ual orderable testing performed at [facility], [address] [place] [address], [place] [address] Hct 46.7 37.0 - 47.0 % [place] Comment: As part of CBC testing performe d at [facility], [address] [place] [address] MCV 95 82 - 98 fL [place] Comment: As part of CBC testing performe d at [facility], [address] [place] [address]794 MCH 30.6 27.0 - 31.0 pg [place] Comment: As part of CBC testing performe d at [facility], [address] [place] [address] 52483 MCHC 32.1 31.0 - 36.0 gm/dL [place] Comment: As part of CBC testing performe d at [facility], [address] [place] [address] RDW-SD 44.4 35.1 - 46.3 fL [place] Comment: As part of CBC testing performe d at [facility], [address] [place] [address] 44985 RDW-CV 12.4 12.0 - 15.5 % [place] Comment: As part of CBC testing performe d at [facility], [address] [place] [address] 27978 Platelet count 181 140 - 440 K/uL [facility] Comment: As part of CBC or an individual orderable testing performed at [facility], [address] [place] [address] 18000 MPV 10.1 4.0 - 10.4 fL [place] Comment: As part of CBC testing performe d at [facility], [address] [place] [address] Specimen Anatomical Collection Method Collection Time Receive d Time (Source) Location / / Volume Laterality Blood 11/26/2022 1:07 PM 3 1:19 HOSPITAL CLINIC ASSISTANT PM HOSPITAL CLINIC ASSISTANT Lorena Hdez CARTOGRAPHIC AIDE LAB BLOOD ORDERABLES Performing Organization Address City/State/ZIP Code Phon e Number [place], [place] [id number] [place] [address] Glomerular Filtration Rate (11/26/2022 1:07 PM HOSPITAL CLINIC ASSISTANT)Only the most recent of2 resultswithin the time period is included. P athologist Signature eGFR 113 >=60 [place] mL/min/1.73 sq. m Comment: The eGFRcr is calculated with the 2020 KD-EPI creatinine equation using creatinine, patient's age, and sex for adults 18 years of age and older. Other factors, especially muscle mass, may affect accuracy and need to be considered. According to the Kidney Disease: Improvi ng Global Outcomes (KDIGO) CKD Work Group 2012 Clinical Practice Guideline, chronic kidney disease (CKD) is defined as the abnormalities of kidney structure or function, present for more than 3 months, with implications for health. CKD should be c lassified by cause, GFR category, and albuminuria category. KDIGO guidelines provide the following GFR categories Stage Description GFR mL/min/1.73 m2 G1* Normal or high >= 90 G2* Mildly decreased 60-89 G3a Mildly to moderately decreased 45-59 G3b Moderately to severely decreased 30- 44 G4 Severely decreased 15-29 G5 Kidney failure <15 *In the absence of evidence of kidney da mage, neither G1 nor G2 fulfill criteria for CKD. Testing performed at [facility], [address] [place] [address] Specimen Anatomical Collection Method Collection Time Receive d Time (Source) Location / / Volume Laterality Blood 11/26/2022 1:07 PM 1:19 HOSPITAL CLINIC ASSISTANT PM HOSPITAL CLINIC ASSISTANT Lorena Hdez [facility] LAB BLOOD ORDERABLES Performing Organization Address City/State/[place] [address] [place] [address] Fractionated Bilirubin (11/26/2022 1:07 PM HOSPITAL CLINIC ASSISTANT)Only the most recent of2 results within the time period is included. athologist Signature Bili Total 0.5 <=1.2 mg/dL [place] Comment: Indocyanine Green (ICG) may cause falsel y elevated bilirubin results. Total and direct bilirubin must not be measured from samples containing indocyanine green. False elevation of total bilirubin can b e seen in patients with IgG concentrations above 28 g/L. Testing performed at [facility], [address] [place] [address] Bili Direct <0.2 <=0.3 mg/dL [place] Comment: Indocyanine Green (ICG) may cause falsel y elevated bilirubin results. Total and direct bilirubin must not be measured from samples containing indocyanine green. Testing performed at [facility], [address] [place] [address] Bili Indirect See Note 0.0 - 0.9 mg/dL [facility] Comment: Unable to calculate Indirect Bilirubin r esult due to some parameters are outside reportable range Testing performed at [facility], [address] [place] [address] Specimen Anatomical Collection Method Collection Time Receive d Time (Source) Location / / Volume Laterality Blood 11/26/2022 1:07 PM 3 1:19 HOSPITAL CLINIC ASSISTANT PM HOSPITAL CLINIC ASSISTANT Lorena Hdez [facility] LAB BLOOD ORDERABLES Performing Organization Address City/[facility]/ZIP Code Phon e Number [address] aPTT (11/26/2022 1:07 PM HOSPITAL CLINIC ASSISTANT)Only the most recent of2 resultswithin the time period is included. athologist [facility] aPTT 27.2 22.8 - 34.2 [place] second(s) Comment: Testing performed at [facility], [address] [place] [address] Specimen Anatomical Collection Method Collection Time Receive d Time (Source) Location / / Volume Laterality Blood 11/26/2022 1:07 PM 3 1:19 HOSPITAL CLINIC ASSISTANT PM HOSPITAL CLINIC ASSISTANT Narrative [place] - 11/26/2022 1:58 PM HOSPITAL CLINIC ASSISTANT This lab cannot be scheduled at the [facility] due to collection/proccessing restrictions: [facility] and [facility]. Lorena Hdez [facility] LAB BLOOD ORDERABLES Performing Organization Address City/State/[facility] Phon e Number [address] (ABNORMAL) Vitamin D 25OH (11/26/2022 1:07 PM HOSPITAL CLINIC ASSISTANT) athologist [facility] Vitamin D 25 OH 21 (L) 30 - 100 [place] ng/mL Comment: Reference Range: Deficiency: <10 ng/mL Insufficiency: 10-29 ng/mL Sufficiency: 30-100 ng/mL Potential toxicity: >100 ng/mL Testing performed at [facility], [address] [place] [address] Specimen Anatomical Collection Method Collection Time Receive d Time (Source) Location / / Volume Laterality Blood 11/26/2022 1:07 PM 1:19 HOSPITAL CLINIC ASSISTANT PM HOSPITAL CLINIC ASSISTANT Lorena Hdez CARTOGRAPHIC AIDE LAB BLOOD ORDERABLES Performing Organization Address City/State/ZIP Code Phon e Number [facility], [place] [id number] [place] [address] (ABNORMAL) Differential (11/26/2022 1:07 PM HOSPITAL CLINIC ASSISTANT)Only the most recent of2 results within the time period is included. athologist Signature Neutrophil % 66.6 (H) 42.0 - [place] 66.0 % Comment: All components of the Different ial performed at [facility], [address] [place], [place] [id number] Lymphocyte % 26.7 24.0 - 44.0 % [place] Comment: As part of the Differential hailey ting performed at [facility], [address] [place], [place] [id number] Monocyte % 4.9 2.0 - 7.0 % [place] Comment: As part of the Differential hailey ting performed at [facility], [address] [place] [address] Eosinophil % 0.9 (L) 1.0 - 4.0 % [place] Comment: As part of the Differential hailey ting performed at [facility], [address] [place], [place] [id number] Basophil % 0.5 0.0 - 1.0 % [place] Comment: As part of the Differential hailey ting performed at [facility], [address] [place], [place] [id number] IGRE % 0.4 0.0 - 0.4 % [place] Comment: IGRE % count includes Metamyelocytes, My elocytes, and Promyelocytes. As part of the Differential testing perf ormed at [facility], [address] [place] [address] Neutrophil Abs 5.46 1.70 - 7.30 K/uL [facility] Comment: As part of the Differential hailey ting performed at [facility], [address] [place] [address] Lymphocyte Abs 2.18 1.00 - 4.80 K/uL [facility] Comment: As part of the Differential hailey ting performed at [facility], [address] [place] [address] Monocyte Abs 0.40 0.08 - 0.70 K/uL [facility] Comment: As part of the Differential hailey ting performed at [facility], [address] [place] [address] Eosinophil Abs 0.07 0.04 - 0.40 K/uL [facility] Comment: As part of the Differential hailey ting performed at [facility], [address] [place] [address] Basophil Abs 0.04 0.00 - 0.10 K/uL [facility] Comment: As part of the Differential hailey ting performed at [facility], [address] [place] [address] IG Abs 0.03 0.00 - 0.04 K/uL [place] Comment: As part of the Differential hailey ting performed at [facility], [address] [place] [address] Specimen Anatomical Collection Method Collection Time Receive d Time (Source) Location / / Volume Laterality Blood 11/26/2022 1:07 PM 3 1:19 HOSPITAL CLINIC ASSISTANT PM HOSPITAL CLINIC ASSISTANT Lorena Hdez CARTOGRAPHIC AIDE LAB BLOOD ORDERABLES Performing Organization Address City/State/ZIP Code Phon e Number [address] PT/INR (11/26/2022 1:07 PM HOSPITAL CLINIC ASSISTANT)Only the most recent of2 resultswithin the time period is included. athologist Signature PT 13.5 11.9 - 14.1 [place] second(s) Comment: Testing performed at [facility], [address] [place] [address], [place] [address] INR 1.04 0.89 - 1.10 [place] Comment: Testing performed at [facility], [address] [place] [address], [place] [address] Specimen Anatomical Collection Method Collection Time Receive d Time (Source) Location / / Volume Laterality Blood 11/26/2022 1:07 PM 3 1:19 HOSPITAL CLINIC ASSISTANT PM HOSPITAL CLINIC ASSISTANT Narrative [place] - 11/26/2022 1:58 PM HOSPITAL CLINIC ASSISTANT This lab cannot be scheduled at the [facility] locations due to collection/proccessing restrictions: [facility]. Lorena Hdez [facility] LAB BLOOD ORDERABLES Performing Organization Address City/State/ZIP Code Phon e Number [place], [place] [id number] [place] [address] (ABNORMAL) Uric Acid (11/26/2022 1:07 PM HOSPITAL CLINIC ASSISTANT) P athologist Signature Uric Acid 6.5 (H) 2.4 - 5.7 [place] mg/dL Comment: Testing performed at [facility], [address] [place] [address] Specimen Anatomical Collection Method Collection Time Receive d Time (Source) Location / / Volume Laterality Blood 11/26/2022 1:07 PM 3 1:19 HOSPITAL CLINIC ASSISTANT PM HOSPITAL CLINIC ASSISTANT Lorena Hdez [facility] LAB BLOOD ORDERABLES Performing Organization Address City/State/ZIP Code Phon e Number [place], [place] [id number] [place] [address] BUN (11/26/2022 1:07 PM HOSPITAL CLINIC ASSISTANT)Only the most recent of2 resultswithin the time period is included. P athologist Signature BUN 7 6 - 23 mg/dL [place] Comment: Testing performed at [facility], [address] [place] [address], [place] [address] Specimen Anatomical Collection Method Collection Time Receive d Time (Source) Location / / Volume Laterality Blood 11/26/2022 1:07 PM 3 1:19 HOSPITAL CLINIC ASSISTANT PM HOSPITAL CLINIC ASSISTANT Lorena Hdez CARTOGRAPHIC AIDE LAB BLOOD ORDERABLES Performing Organization Address City/[facility]/ZIP Code Phon e Number [place], [place] [id number] [place] [address] (ABNORMAL) ALT (11/26/2022 1:07 PM HOSPITAL CLINIC ASSISTANT)Only the most recent of2 resultswithin the time period is included. athologist Signature ALT 45 (H) <=33 U/L [place] Comment: Testing performed at [facility], [address] [place] [address] Specimen Anatomical Collection Method Collection Time Receive d Time (Source) Location / / Volume Laterality Blood 11/26/2022 1:07 PM 3 1:19 HOSPITAL CLINIC ASSISTANT PM HOSPITAL CLINIC ASSISTANT Lorena Hdez CARTOGRAPHIC AIDE LAB BLOOD ORDERABLES Performing Organization Address City/[facility]/ZIP Code Phon e Number [place], [place] [id number] [place] [address] Aspartate Aminotransferase (11/26/2022 1:07 PM HOSPITAL CLINIC ASSISTANT)Only the most recent of2 resultswithin the time period is included. athologist Signature AST 32 <=32 U/L [place] Comment: Testing performed at [facility], [address] [place] [address] Specimen Anatomical Collection Method Collection Time Receive d Time (Source) Location / / Volume Laterality Blood 11/26/2022 1:07 PM 3 1:19 HOSPITAL CLINIC ASSISTANT PM HOSPITAL CLINIC ASSISTANT Lorena Hdez CARTOGRAPHIC AIDE LAB BLOOD ORDERABLES Performing Organization Address City/[facility] Phon e Number [place], [place] [phone] [place] [address] TSH (11/26/2022 1:07 PM HOSPITAL CLINIC ASSISTANT)Only the most recent of2 resultswithin the time period is included. athologist Signature TSH 1.78 0.27 - 4.20 [place] mcunit/mL Comment: Testing performed at [facility], [address] [place] [address] Specimen Anatomical Collection Method Collection Time Receive d Time (Source) Location / / Volume Laterality Blood 11/26/2022 1:07 PM 3 1:19 HOSPITAL CLINIC ASSISTANT PM HOSPITAL CLINIC ASSISTANT Lorena Hdez CARTOGRAPHIC AIDE LAB BLOOD ORDERABLES Performing Organization Address City/[facility]/ZIP Code Phon e Number [place], [place] [phone] [place] [address] Free T4 (11/26/2022 1:07 PM HOSPITAL CLINIC ASSISTANT)Only the most recent of2 resultswithin the time period is included. athologist Signature T4 Free 1.11 0.93 - 1.70 [place] ng/dL Comment: Testing performed at [facility], [address] [place] [address] Specimen Anatomical Collection Method Collection Time Receive d Time (Source) Location / / Volume Laterality Blood 11/26/2022 1:07 PM 3 1:19 HOSPITAL CLINIC ASSISTANT PM HOSPITAL CLINIC ASSISTANT Lorena Hdez CARTOGRAPHIC AIDE LAB BLOOD ORDERABLES Performing Organization Address City/[facility]/ZIP Code Phon e Number [place], [place] [phone] [place] [address] Total Protein (11/26/2022 1:07 PM HOSPITAL CLINIC ASSISTANT)Only the most recent of2 resultswithin the time period is included. athologist Signature Total Protein 7.6 6.4 - 8.3 [place] g/dL Comment: Testing performed at [facility], [address] [place] [address] Specimen Anatomical Collection Method Collection Time Receive d Time (Source) Location / / Volume Laterality Blood 11/26/2022 1:07 PM 3 1:19 HOSPITAL CLINIC ASSISTANT PM HOSPITAL CLINIC ASSISTANT Lorena Hdez CARTOGRAPHIC AIDE LAB BLOOD ORDERABLES Performing Organization Address City/[facility]/ZIP Code Phon e Number [place], [place] [phone] [place] [address] Phosphorus Level (11/26/2022 1:07 PM HOSPITAL CLINIC ASSISTANT) athologist Signature Phosphorus 2.8 2.5 - 4.5 [place] mg/dL Comment: Testing performed at [facility], [address] [place] [address] Specimen Anatomical Collection Method Collection Time Receive d Time (Source) Location / / Volume Laterality Blood 11/26/2022 1:07 PM 3 1:19 HOSPITAL CLINIC ASSISTANT PM HOSPITAL CLINIC ASSISTANT Lorena Hdez CARTOGRAPHIC AIDE LAB BLOOD ORDERABLES Performing Organization Address City/[facility]/ZIP Code Phon e Number [address] (ABNORMAL) Alkaline Phosphatase (11/26/2022 1:07 PM HOSPITAL CLINIC ASSISTANT)Only the most recent of2 resultswithin the time period is included. athologist Signature Alk Phos 123 (H) 35 - 104 [place] U/L Comment: Testing performed at [facility], [address] [place] [address] Specimen Anatomical Collection Method Collection Time Receive d Time (Source) Location / / Volume Laterality Blood 11/26/2022 1:07 PM 3 1:19 HOSPITAL CLINIC ASSISTANT PM HOSPITAL CLINIC ASSISTANT Lorena Hdez CARTOGRAPHIC AIDE LAB BLOOD ORDERABLES Performing Organization Address City/[facility]/ZIP Code Phon e Number [address] (ABNORMAL) Magnesium Level (11/26/2022 1:07 PM HOSPITAL CLINIC ASSISTANT) athologist Signature Magnesium 1.4 (L) 1.6 - 2.6 [place] mg/dL Comment: Testing performed at [facility], [address] [place] [address] Specimen Anatomical Collection Method Collection Time Receive d Time (Source) Location / / Volume Laterality Blood 11/26/2022 1:07 PM 3 1:19 HOSPITAL CLINIC ASSISTANT PM HOSPITAL CLINIC ASSISTANT Lorena Hdez CARTOGRAPHIC AIDE LAB BLOOD ORDERABLES Performing Organization Address City/State/ZIP Code Phon e Number [address] (ABNORMAL) LDH (11/26/2022 1:07 PM HOSPITAL CLINIC ASSISTANT) athologist Signature LDH 220 (H) 135 - 214 [place] U/L Comment: Results greater than 1651 U/L may not be reliable due to matrix effect with extended dilution as it exceeds the welder boilermaker's recommended limit. Caution should be exercised when interpreting such values and done in conjunction with clinical context. Testing performed at [facility], [address] [place] [address] Specimen Anatomical Collection Method Collection Time Receive d Time (Source) Location / / Volume Laterality Blood 11/26/2022 1:07 PM 3 1:19 HOSPITAL CLINIC ASSISTANT PM HOSPITAL CLINIC ASSISTANT Lorena Hdez [facility] LAB BLOOD ORDERABLES Performing Organization Address City/[facility]/ZIP Code Phon e Number [place], [place] [phone] [place] [address] (ABNORMAL) Glucose Level (11/26/2022 1:07 PM HOSPITAL CLINIC ASSISTANT)Only the most recent of2 resultswithin the time period is included. athologist Signature Glucose Level 239 (H) 70 - 99 [place] mg/dL Comment: Effective 05/27/16, the glucose reference intervals have been updated based on [place] [employer] guidelines (Standards of Medical Care in Diabetes 2016. Diabetes Care 2016; 39: S13-S22). Fasting blood glucose: Normal: 70-99 mg/dL Impaired fasting glucose (increased risk for diabetes or pre-diabetes): 100- 125 mg/dL Diabetes mellitus: >/=126 mg/dL Random blood glucose: Normal: 70-199 mg/dL Note: Random glucose >100 mg/dL is assoc iated with increased risk for diabetes Testing performed at [facility], [address] [place] [address] Specimen Anatomical Collection Method Collection Time Receive d Time (Source) Location / / Volume Laterality Blood 11/26/2022 1:07 PM 3 1:19 HOSPITAL CLINIC ASSISTANT PM HOSPITAL CLINIC ASSISTANT Lorena Hdez [facility] LAB BLOOD ORDERABLES Performing Organization Address City/[facility] Phon e Number [place], [place] [phone] [place] [address] Calcium Level (11/26/2022 1:07 PM HOSPITAL CLINIC ASSISTANT)Only the most recent of2 resultswithin the time period is included. athologist Signature Calcium Lvl 9.4 8.4 - 10.2 [place] mg/dL Comment: Testing performed at [facility], [address] [place] [address] Specimen Anatomical Collection Method Collection Time Receive d Time (Source) Location / / Volume Laterality Blood 11/26/2022 1:07 PM 3 1:19 HOSPITAL CLINIC ASSISTANT PM HOSPITAL CLINIC ASSISTANT Lorena Hdez CARTOGRAPHIC AIDE LAB BLOOD ORDERABLES Performing Organization Address City/[facility]/ZIP [facility] Phon e Number [address] Albumin Level (11/26/2022 1:07 PM HOSPITAL CLINIC ASSISTANT)Only the most recent of2 resultswithin the time period is included. athologist Signature Albumin Lvl 4.4 3.5 - 5.2 [place] gm/dL Comment: Testing performed at [facility], [address] [place] [address] Specimen Anatomical Collection Method Collection Time Receive d Time (Source) Location / / Volume Laterality Blood 11/26/2022 1:07 PM 3 1:19 HOSPITAL CLINIC ASSISTANT PM HOSPITAL CLINIC ASSISTANT Lorena Hdez CARTOGRAPHIC AIDE LAB BLOOD ORDERABLES Performing Organization Address City/[facility] Phon e Number [place], [place] [phone] [place] [address] (ABNORMAL) Electrolyte Panel (11/26/2022 1:07 PM HOSPITAL CLINIC ASSISTANT)Only the most recent of2 resultswithin the time period is included. athologist Signature Sodium Lvl 139 136 - 145 [place] mEq/L Comment: Testing performed at [facility], [address] [place] [address] Potassium Lvl 4.0 3.5 - 5.1 mEq/L [place] Comment: Testing performed at [facility], [address] [place] [address] Chloride 98 98 - 107 mEq/L [place] Comment: Testing performed at [facility], [address] [place] [address] CO2 30 (H) 22 - 29 mEq/L [place] Comment: Testing performed at [facility], [address] [place] [address] Anion Gap 11 4 - 14 mEq/L [place] Comment: Testing performed at [facility], [address] [place] [address] Specimen Anatomical Collection Method Collection Time Receive d Time (Source) Location / / Volume Laterality Blood 11/26/2022 1:07 PM 3 1:19 HOSPITAL CLINIC ASSISTANT PM HOSPITAL CLINIC ASSISTANT Lorena CHAPMAN LAB BLOOD ORDERABLES Performing Organization Address City/[facility] Phon e Number [place], [place] [phone] [place] [address] NTRK3 Fusion Material Request (11/26/2022 12:43 PM HOSPITAL CLINIC ASSISTANT) Component Value Ref Test Analysis Performed At [facility] gist Range Method Time Signature Archived The test is to be 12/04/2022 [facility] Material performed on 8:01 AM HOSPITAL CLINIC ASSISTANT tissue from case [id number]. The case report, slides, and blocks for the cited accession were retrieved from archives. The pathologist examined the candidate H&E slide and selected the block appropriate to the specifications of the ordered molecular analysis. Unstained slides and H&E slide were prepared and forwarded to [facility] where the subject molecular test will be performed. Results will be reported separately. Pathologist Electronically 12/04/2022 [facility] Signature signed by Larissa March 8:01 AM BRANDAN Medrano MD on 12/04/22 8:01 AM Specimen Anatomical Collection Method Collection Time Receive d Time (Source) Location / / Volume Laterality Tissue 11/26/2022 12:43 11/26/2022 PM HOSPITAL CLINIC ASSISTANT 12:43 PM HOSPITAL CLINIC ASSISTANT Lorena CHAPMAN [facility] IP AP BIOMARKERS Performing Organization Address City/[facility]/ZIP Code Phon e Number [facility] [place] [address] Michelle Hodges MD NTRK2 Fusion Material Request (11/26/2022 12:43 PM HOSPITAL CLINIC ASSISTANT) Component Value Ref Test Analysis Performed At [facility] Range Method Time Signature Archived The test is to be 12/04/2022 [facility] Material performed on 8:01 AM HOSPITAL CLINIC ASSISTANT tissue from case [id number]. The case report, slides, and blocks for the cited accession were retrieved from archives. The pathologist examined the candidate H&E slide and selected the block appropriate to the specifications of the ordered molecular analysis. Unstained slides and H&E slide were prepared and forwarded to [facility] where the subject molecular test will be performed. Results will be reported separately. Pathologist Electronically 12/04/2022 [facility] Signature signed by Larissa March 8:01 AM BRANDAN Medrano MD on 12/04/22 8:01 AM Specimen Anatomical Collection Method Collection Time Receive d Time (Source) Location / / Volume Laterality Tissue 11/26/2022 12:43 11/26/2022 PM HOSPITAL CLINIC ASSISTANT 12:43 PM HOSPITAL CLINIC ASSISTANT Lorena CHAPMAN [facility] IP AP BIOMARKERS Performing Organization Address [facility] Phon e Number [place] [address] 1515 Michelle Hodges MD NTRK1 Fusion Material Request (11/26/2022 12:43 PM HOSPITAL CLINIC ASSISTANT) Component Value Ref Test Analysis Performed At [facility] Range Method Time Signature Archived The test is to be 12/04/2022 [facility] Material performed on 8:01 AM HOSPITAL CLINIC ASSISTANT tissue from case [id number]. The case report, slides, and blocks for the cited accession were retrieved from archives. The pathologist examined the candidate H&E slide and selected the block appropriate to the specifications of the ordered molecular analysis. Unstained slides and H&E slide were prepared and forwarded to [facility] where the subject molecular test will be performed. Results will be reported separately. Pathologist Electronically 12/04/2022 [facility] Signature signed by Larissa March 8:01 AM BRANDAN Medrano MD on 12/04/22 8:01 AM Specimen Anatomical Collection Method Collection Time Receive d Time (Source) Location / / Volume Laterality Tissue 11/26/2022 12:43 11/26/2022 PM HOSPITAL CLINIC ASSISTANT 12:43 PM HOSPITAL CLINIC ASSISTANT Lorena CHAPMAN [facility] IP AP BIOMARKERS Performing Organization Address City/[facility]/ZIP Code Phon e Number [place] [address] 1515 Michelle Hodges MD [id number] Mutation Analysis Material Request (11/26/2022 12:43 PM HOSPITAL CLINIC ASSISTANT) Component Value Ref Test Analysis Performed At [facility] Method Time Signature Archived The test is to be 12/04/2022 [facility] Material performed on 8:01 AM HOSPITAL CLINIC ASSISTANT tissue from case [id number]. The case report, slides, and blocks for the cited accession were retrieved from archives. The pathologist examined the candidate H&E slide and selected the block appropriate to the specifications of the ordered molecular analysis. Unstained slides and H&E slide were prepared and forwarded to [facility] where the subject molecular test will be performed. Results will be reported separately. Pathologist Electronically 12/04/2022 [facility] Signature signed by Larissa March 8:01 AM BRANDAN Medrano MD on 12/04/22 8:01 AM Specimen Anatomical Collection Method Collection Time Receive d Time (Source) Location / / Volume Laterality Tissue 11/26/2022 12:43 11/26/2022 PM HOSPITAL CLINIC ASSISTANT 12:43 PM HOSPITAL CLINIC ASSISTANT Lorena Hdez CARTOGRAPHIC AIDE [facility] AP BIOMARKERS Performing Organization Address City/State/ZIP Code Phon e Number [facility] [place] [address] 1515 Michelle Hodges MD ALK Mutation Analysis Material Request (11/26/2022 12:43 PM HOSPITAL CLINIC ASSISTANT) Component Value Ref Test Analysis Performed At [facility] Method Time Signature Archived The test is to be 12/04/2022 [facility] Material performed on 8:02 AM HOSPITAL CLINIC ASSISTANT tissue from case [id number]. The case report, slides, and blocks for the cited accession were retrieved from archives. The pathologist examined the candidate H&E slide and selected the block appropriate to the specifications of the ordered molecular analysis. Unstained slides and H&E slide were prepared and forwarded to [facility] where the subject molecular test will be performed. Results will be reported separately. Pathologist Electronically 12/04/2022 [facility] Signature signed by Larissa March 8:02 AM BRANDAN Medrano MD on 12/04/22 8:02 AM Specimen Anatomical Collection Method Collection Time Receive d Time (Source) Location / / Volume Laterality Tissue 11/26/2022 12:43 11/26/2022 PM HOSPITAL CLINIC ASSISTANT 12:43 PM HOSPITAL CLINIC ASSISTANT Lorena Kayla Hdez [facility] IP AP BIOMARKERS Performing Organization Address City/[facility]/ZIP Code Phon e Number [facility] [place] [address] 1515 Michelle Hodges MD MTOR Mutation Material Request (11/26/2022 12:43 PM HOSPITAL CLINIC ASSISTANT) Component Value Ref Test Analysis Performed At [facility] Range Method Time Signature Archived The test is to be 12/04/2022 [facility] Material performed on 8:01 AM HOSPITAL CLINIC ASSISTANT tissue from case [id number]. The case report, slides, and blocks for the cited accession were retrieved from archives. The pathologist examined the candidate H&E slide and selected the block appropriate to the specifications of the ordered molecular analysis. Unstained slides and H&E slide were prepared and forwarded to [facility] where the subject molecular test will be performed. Results will be reported separately. Pathologist Electronically 12/04/2022 [facility] Signature signed by Larissa March 8:01 AM BRANDAN Medrano MD on 12/04/22 8:01 AM Specimen Anatomical Collection Method Collection Time Receive d Time (Source) Location / / Volume Laterality Tissue 11/26/2022 12:43 11/26/2022 PM HOSPITAL CLINIC ASSISTANT 12:43 PM HOSPITAL CLINIC ASSISTANT Lorena Kayla Hdez [facility] IP AP BIOMARKERS Performing Organization Address [facility] Code Phon e Number [place] [address] 1515 Michelle Hodges MD PTEN Mutation Material Request (11/26/2022 12:43 PM HOSPITAL CLINIC ASSISTANT) Component Value Ref Test Analysis Performed At [facility] Method Time Signature Archived The test is to be 12/04/2022 [facility] Material performed on 8:02 AM HOSPITAL CLINIC ASSISTANT tissue from case [id number]. The case report, slides, and blocks for the cited accession were retrieved from archives. The pathologist examined the candidate H&E slide and selected the block appropriate to the specifications of the ordered molecular analysis. Unstained slides and H&E slide were prepared and forwarded to [facility] where the subject molecular test will be performed. Results will be reported separately. Pathologist Electronically 12/04/2022 [facility] Signature signed by Larissa March 8:02 AM BRANDAN Medrano MD on 12/04/22 8:02 AM Specimen Anatomical Collection Method Collection Time Receive d Time (Source) Location / / Volume Laterality Tissue 11/26/2022 12:43 11/26/2022 PM HOSPITAL CLINIC ASSISTANT 12:43 PM HOSPITAL CLINIC ASSISTANT Lorena Hdez [facility] IP AP BIOMARKERS Performing Organization Address City/State/ZIP Code Phon e Number [place] [address] 1515 Michelle Hodges MD EGFR Mutation Material Request (11/26/2022 12:43 PM HOSPITAL CLINIC ASSISTANT) Component Value Ref Test Analysis Performed At [facility] gist Range Method Time Signature Archived The test is to be 12/04/2022 [facility] Material performed on 8:02 AM HOSPITAL CLINIC ASSISTANT tissue from case [id number]. The case report, slides, and blocks for the cited accession were retrieved from archives. The pathologist examined the candidate H&E slide and selected the block appropriate to the specifications of the ordered molecular analysis. Unstained slides and H&E slide were prepared and forwarded to [facility] where the subject molecular test will be performed. Results will be reported separately. Pathologist Electronically 12/04/2022 [facility] Signature signed by Larissa March 8:02 AM HOSPITAL CLINIC ASSISTANT MD [place] on 12/04/22 8:01 AM Specimen Anatomical Collection Method Collection Time Receive d Time (Source) Location / / Volume Laterality Tissue 11/26/2022 12:43 11/26/2022 PM HOSPITAL CLINIC ASSISTANT 12:43 PM HOSPITAL CLINIC ASSISTANT Lorena CHAPMAN [facility] IP AP BIOMARKERS Performing Organization Address City/[facility]/ZIP Code Phon e Number [place] [address] 1515 Michelle Hodges IHC PD-L1 Material Request (11/26/2022 12:43 PM HOSPITAL CLINIC ASSISTANT) Specimen Anatomical Collection Method Collection Time Receive d Time (Source) Location / / Volume Laterality Tissue 11/26/2022 12:43 11/26/2022 PM HOSPITAL CLINIC ASSISTANT 12:43 PM HOSPITAL CLINIC ASSISTANT Lorena Hdez [facility] IP AP BIOMARKERS Performing Organization Address City/State/ZIP Code Phon e Number [place] [address] 1515 Michelle Hodges IHC HER2/arcenio Material Request (11/26/2022 12:43 PM HOSPITAL CLINIC ASSISTANT) Specimen Anatomical Collection Method Collection Time Receive d Time (Source) Location / / Volume Laterality Tissue 11/26/2022 12:43 11/26/2022 PM HOSPITAL CLINIC ASSISTANT 12:43 PM HOSPITAL CLINIC ASSISTANT Lorena Hdez CARTOGRAPHIC AIDE [facility] IP AP BIOMARKERS Performing Organization Address City/State/ZIP Code Phon e Number [facility] [place] [address] [address] [facility] Insulin-Like Growth Factor I (11/17/2022 12:11 PM HOSPITAL CLINIC ASSISTANT) athologist Signature Insulin-Like 154 40 - 217 [facility] Growth Factor ng/mL [facility] IGF Z-score 1.04 -2.0 - 2.0 [facility] Comment: ADDITIONAL INFORMATIO N This test was developed and its performa nce characteristics determined by [facility] in a manner co nsistent with CLIA requirements. This test has not been sisi ared or approved by the U.S. Food and Drug Administration. Test Performed by: [facility] [address] [place] [address] Vehicle Technician: Yonathan Guzman M.D. Ph. D.; CLIA# [id number] Specimen Anatomical Collection Method Collection Time Receive d Time (Source) Location / / Volume Laterality Blood 11/17/2022 12:11 11/17/2022 PM HOSPITAL CLINIC ASSISTANT 12:13 PM HOSPITAL CLINIC ASSISTANT Red [place] LAB BLOOD ORDERABLES Performing Organization Address City/[facility] Code Phon e Number [facility] CANCER Unless otherwise noted, [place] [address] CENTER all lab tests performed by: Division of Pathology and Laboratory Medicine [address] [facility] [address] Hepatitis C Virus Ab (11/17/2022 12:11 PM HOSPITAL CLINIC ASSISTANT) Patholo gist Method Time Signature HCVAb. Non Reactive Non Reactive [facility] Comment: Antibody detection in the immunocompromi sed and immunosuppressed population may be delayed or absent entirely. Therefore serial testing, correlation with other clinical findings, and supplemental testin g (if available) should be taken into co nsideration when interpreting the results. Specimen Anatomical Collection Method Collection Time Receive d Time (Source) Location / / Volume Laterality Blood 11/17/2022 12:11 11/18/2022 7:43 PM HOSPITAL CLINIC ASSISTANT AM HOSPITAL CLINIC ASSISTANT Red Berman APN LAB BLOOD ORDERABLES Performing Organization Address City/[facility]/ZIP Code Phon e Number [facility] CANCER Unless otherwise noted, [place] [address] CENTER all lab tests performed by: Division of Pathology and Laboratory Medicine [address] [place] (ABNORMAL) ACTH (11/17/2022 12:11 PM HOSPITAL CLINIC ASSISTANT) athologist Signature ACTH 5 (L) 7 - 63 pg/mL [place] Comment: Results greater than 1826 pg/mL may not be reliable due to matrix effect with extended dilution as it exceeds the welder boilermaker's recommended limit. ACTH reference intervals are established for the morni ng hours from 7-10 am. Due to the circad katie rhythm of ACTH levels in plasma, the sample col lection time must be noted. Caution should be exercised when interpreting such values and done in conjunction with clinical context. [facility], [address] [place] [id number] Specimen Anatomical Collection Method Collection Time Receive d Time (Source) Location / / Volume Laterality Blood 11/17/2022 12:11 11/17/2022 PM HOSPITAL CLINIC ASSISTANT 12:12 PM HOSPITAL CLINIC ASSISTANT Narrative [place] - 11/17/2022 12:53 PM HOSPITAL CLINIC ASSISTANT This lab cannot be scheduled at the following locations due to collection/proccessing restrictions: [place] [facility] [place] [facility] [place] - [facility] [place] [facility] Red B[place] APN LAB BLOOD ORDERABLES Performing Organization Address City/State/[place] [address] [place] [address] Prolactin (11/17/2022 12:11 PM HOSPITAL CLINIC ASSISTANT) athologist Signature Prolactin 9.3 4.8 - 23.3 [facility] ng/mL [facility] Comment: Results greater than 4700.0 ng/ mL may not be reliable due to matrix effect with extended dilution as it exceeds the welder boilermaker s recommended limit. Caution should be e xercised when interpreting such values and done in conjunction with clinical contex t. Specimen Anatomical Collection Method Collection Time Receive d Time (Source) Location / / Volume Laterality Blood 11/17/2022 12:11 11/17/2022 7:44 PM HOSPITAL CLINIC ASSISTANT PM HOSPITAL CLINIC ASSISTANT Red [place] APN LAB BLOOD ORDERABLES Performing Organization Address City/State/[facility] Phon e Number [facility] CANCER Unless otherwise noted, [address] all lab tests performed by: Division of Pathology and Laboratory Medicine [facility] Estradiol level (11/17/2022 12:11 PM HOSPITAL CLINIC ASSISTANT) athologist Signature Estradiol <11 pg/mL [facility] Comment: Reference Ranges: Adult Females: Follicular Phase 12.0 - 233.0 pg/mL Ovulation Phase 41.0 - 398.0 pg/mL Luteal Phase 22.0 - 341.0 pg/mL Postmenopausal <138.0 pg/mL Adult Males: 11 - 43 pg/m L Boys (1-10 years): <20.0 pg/mL Girl (1-10 years): <27.0 pg/mL Patients treated with Fulvestrant will s how falsely increase in estradiol concentrations due to cross-reaction. For further information or assistance, please contact pathologist. Specimen Anatomical Collection Method Collection Time Receive d Time (Source) Location / / Volume Laterality Blood 11/17/2022 12:11 11/17/2022 7:44 PM HOSPITAL CLINIC ASSISTANT PM HOSPITAL CLINIC ASSISTANT Red Berman APN LAB BLOOD ORDERABLES Performing Organization Address City/State/[facility] Phon e Number [facility] CANCER Unless otherwise noted, [address] all lab tests performed by: Division of Pathology and Laboratory Medicine [address] [facility] T3 (11/17/2022 12:11 PM HOSPITAL CLINIC ASSISTANT) athologist Signature T3 Total 88 80 - 200 [place] ng/dL Comment: Performed at [facility], [address] [place] [id number] Specimen Anatomical Collection Method Collection Time Receive d Time (Source) Location / / Volume Laterality Blood 11/17/2022 12:11 11/17/2022 PM HOSPITAL CLINIC ASSISTANT 12:12 PM HOSPITAL CLINIC ASSISTANT Red Berman APN LAB BLOOD ORDERABLES Performing Organization Address City/State/[place] [address] [place] [address] Testosterone Level (11/17/2022 12:11 PM HOSPITAL CLINIC ASSISTANT) athologist [facility] Testoster Tot <3 3 - 41 [place] ng/dL Comment: Reference Ranges: Male: Age 20 - 49 249 - 836 Age >=50 1 93 - 740 Female: Age 20 - 49 8 - 48 Age >=50 3 - 41 Testing performed at [facility], [address] [place] [id number] Specimen Anatomical Collection Method Collection Time Receive d Time (Source) Location / / Volume Laterality Blood 11/17/2022 12:11 11/17/2022 PM HOSPITAL CLINIC ASSISTANT 12:12 PM HOSPITAL CLINIC ASSISTANT Red Berman APN LAB BLOOD ORDERABLES Performing Organization Address City/State/[place] [address] [place] [address] LH (11/17/2022 12:11 PM HOSPITAL CLINIC ASSISTANT) athologist [facility] LH 15.8 mIU/mL [facility] Comment: Female Luteinizing Hormone Reference Ran ges: LOW HIGH Follicular 2.4 12.6 Ovulation 14.0 95.6 Luteal 1.0 11.4 Postmenopause 7.7 58.5 Specimen Anatomical Collection Method Collection Time Receive d Time (Source) Location / / Volume Laterality Blood 11/17/2022 12:11 11/17/2022 7:44 PM HOSPITAL CLINIC ASSISTANT PM HOSPITAL CLINIC ASSISTANT Red Berman APN LAB BLOOD ORDERABLES Performing Organization Address City/State/ZIP Code Phon e Number [facility] CANCER Unless otherwise noted, [place] [address] [place] all lab tests performed by: Division of Pathology and Laboratory Medicine Brian Hodges [facility] Level (11/17/2022 12:11 PM HOSPITAL CLINIC ASSISTANT) athologist Signature FSH 31.4 mIU/mL [facility] CANCER [place] Comment: Female Follicle Stimulating Hormone Refe rence Ranges: L OW HIGH Follicular 3.5 12.5 Ovulation 4.7 21.5 Luteal 1.7 7.7 Postmenopause 25.8 134.8 Specimen Anatomical Collection Method Collection Time Receive d Time (Source) Location / / Volume Laterality Blood 11/17/2022 12:11 11/17/2022 7:44 PM HOSPITAL CLINIC ASSISTANT PM HOSPITAL CLINIC ASSISTANT Red Berman INTELLECTUAL PROPERTY MANAGER LAB BLOOD ORDERABLES Performing Organization Address City/State/ZIP Code Phon e Number [facility] CANCER Unless otherwise noted, [place] [address] CENTER all lab tests performed by: Division of Pathology and Laboratory Medicine [address] [place] (ABNORMAL) Cortisol, Total (11/17/2022 12:11 PM HOSPITAL CLINIC ASSISTANT) athologist Signature Cortisol 1.67 (L) 4.80 - [place] 19.50 mcg/dL Comment: Cortisol reference intervals are establi shed for the morning hours from 6-10 am and afternoon hours 4-8 pm. Due to circadian rhythm of cortisol levels in serum and plasma, the sample collection time must be noted. Caution should be exercised when interpreting such values and done in con junction with clinical context. Serum Cortisol Reference Ranges: Morning (6-10am) (4.8 - 19.5) Afternoon (4-8pm) (2.5 - 11.9) Testing performed at [facility], [address] [place] [id number] Specimen Anatomical Collection Method Collection Time Receive d Time (Source) Location / / Volume Laterality Blood 11/17/2022 12:11 11/17/2022 PM HOSPITAL CLINIC ASSISTANT 12:12 PM HOSPITAL CLINIC ASSISTANT Red Berman APN LAB BLOOD ORDERABLES Performing Organization Address City/[facility]/ZIP [facility] [place] [address] [place] [address] Pathology Outside Interpretation (10/16/2022) Component Value Ref Test Analysis Performed Pathologis t Range Method Time At [facility] Materials Accession#, Stained, Block, Unstained Collected Received 11/27/2022 [facility] Received A. [id number], 7 SS, 1 BLOCKS, 0 USS 10/16/2022 11/24/2022 5:08 PM HOSPITAL CLINIC ASSISTANT Addendum 1 At the request of the donell machado physician the following studies were performed and interpreted at [facility]. 11/27/2022 [facility] Addendum 5:08 PM electronic ally The tumor cells are negative for Her2 (0%) by immunohi stochemical analysis. 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 MD Gerald on 11/27/2022 at PD-L1 (Clone 22C3, [employer]) Combine d Positive Score (CPS): is less than 1 5:08 PM Assay Information: This assa y is manufactured by [employer] and uses a monoclonal anti-PD-L1, clone [id number]. It is performed on formalin-fixed paraffin- embedded tissue using an [employer] autostainer a nd polymer based detection k it, as specified by the welder boilermaker. It is approved for use as a water/wastewater project engineer diagnostic for specific therapies on certain tumor types.Combined positive score (CPS) is calculat ed as the number of PD-L1 st aining cells (viable invasive tumor cells showing membranous staining of any intensity; lymphocytes and macrophages in the tumor area showing membranous or cytoplasmic staini ng of any intensity) divided by the total number of viable invasive tumor cells, multiplied by 100. The maximum score is defined as CPS 100. Diagnosis Outside ([id number], 7 SS, 1 BLOCKS, 0 USS, colle cted on 10/16/2022): 11/27/2022 [employer] [facility] Electronically 5:08 PM signed by Nasopharynx, biopsy: HOSPITAL CLINIC ASSISTANT Ashleigh ADENOID CYSTIC CARCINOMA, CRIBRIFORM TYPE see comment MD Gerald on 11/26/2022 at EARL/SALEEM 9:43 AM Comment Submitted 11/27/2022 [facility] immunohistochemical 5:08 PM stains performed by HOSPITAL CLINIC ASSISTANT referring institution show that CK7 highlights the epithelial cells, and p63 and p40 highlights the myoepithelial cells. The morphology and immunophenotype is supportive of this classification. Biomarker Tumor block: 11/27/2022 [facility] Block(s) [id number] 5:08 PM HOSPITAL CLINIC ASSISTANT Disclaimer "Some tests reported 11/27/2022 [facility] here may have been 5:08 PM developed and HOSPITAL CLINIC ASSISTANT performance characteristics determined by [facility] Pathology and Laboratory Medicine. These tests have not been specifically cleared or approved by the U.S. Food and Drug Administration. If applicable, controls were reviewed and showed appropriate reactivity." Specimen (Source) Anatomical Collection Method Collection Time Re ceived Time Location / / Volume Laterality Tissue 10/16/2022 11/24/2022 3:02 PM HOSPITAL CLINIC ASSISTANT Alexa Alvarez MD LAB PATHOLOGY ORDERABLES Performing Organization Address City/State/ZIP Code Phon e Number [facility] [place] [address] [address] [facility] [address] after 12/04/2021 Insurance Payer Benefit Plan / Subscriber ID Effective Phone Address T ype Group Dates MEDICARE MEDICARE PART A [id number] 2010-Pres [phone] [place] Medicare AND B ent [id number] [address] [facility] [place] [id number] [place] [id number] 2022-Pres [address] Medicaid TRADITIONAL TRADITIONAL ent [id number] [place] [address] Maria De Jesus Acosta Personal/Family Self 1965 [address] (Home) [place] [phone] Care Teams Body Worker Relationship Specialty Start Date End Date Bina Obando PCP - External Otolaryngology 11/12/22 MD Joana Referring [address] [place] [phone] Kenya Agarwal MD PCP - General Head and Neck Surgery 11/12/22 [address] [place] [address] Trent Irving MD Family Practice 11/26/[address] [place] [address] Randall Sheriff [facility] Practice 11/26/22 MD Maciej [address] [place] [address] Vignesh Waddell, Pulmonary Medicine 11/26/22 [address] [place] [address] Naa Miller, Cardiology 11/26/22 [address] [place] [address] [place], [place] [id number] Tapan Harper, Gastroenterology 11/26/22 [address] [place], [place] [address] Rafael Rosas, Ophthalmology 11/26/22 [address] [place] [address]
[2022-12-04] MEDS ORDERED: IPRATROPIUM BROM 0.5MG/2.5ML ONE (22:32)
[2022-12-04] MEDS ORDERED: KETAMINE HCL 500 MG/5 ML VIAL ONE (22:32)
[2022-12-04] MEDS ORDERED: KETOROLAC 30 MG/ML INJ ONE (22:32)
[2022-12-04] MEDS ORDERED: ALBUTEROL 2.5 MG/3 ML NEB SOL ONE (22:32)
--- OUTSIDE RECORDS SUMMARY | 2022-12-04 22:34 | XMS REPORT | Continuity of Care Document ---
:1965 Author Organization [facility] t Address [address] [place] [address] Care Team Providers Name Role Phone [phone] Primary Care Physician Unavailable SYSTEM, PROVIDER NOT IN Attending Clinician Unavailable Tapan Harper Attending Clinician Unavailable Cas Rodriguez Attending Clinician Unavailable RANDALL SHERIFF Attending Clinician Unavailable VIJAY CHANG Attending Clinician Unavailable PEDRO ANTONY Attending Clinician Unavailable Tracey Myers RD Attending Clinician ANA WEST Attending Clinician Unavailable DARLIN WEIR Attending Clinician Unavailable Doctor Unassigned, [place] Attending Clinician Unavailable Randall Sheriff MD Attending Clinician REMINGTON POSADA Attending Clinician Unavailable AGAPITO LANCASTER Attending Clinician Unavailable Lee Monique MD Attending Clinician Lab, Ang - Len Attending Clinician Unavailable CHINMAY OLSEN Attending Clinician Unavailable SONJA OSORIO Attending Clinician Unavailable Sonja Butts Attending Clinician Pob, Adc Lab Main Attending Clinician Unavailable LOBITO RAI Attending Clinician Unavailable Angelica MATHIS Attending Clinician Unavailable Angelica Mathis MD Attending Clinician Angelica MATHIS Attending Clinician Unavailable GERMAIN CALERO Attending Clinician Unavailable CHARO WISE Attending Clinician Unavailable Aguilar_M Attending Clinician Unavailable JACQUELIN GONZALEZ Attending Clinician Unavailable Lacy VERNON, Jacquelin Alvarado Attending Clinician CHARO WISE Attending Clinician Unavailable Billie GRIFFIN, Charo Stanley Attending Clinician Rigo GRIFFIN, Adam Gutierrez Attending Clinician Rishabh GRIFFIN, [place] Kellogg Attending Clinician [phone] Germain Ortega Attending Clinician Placido Coughlin MD Attending Clinician Mimi Attending Clinician Unavailable Nurse, Adc Pob Immunization Attending Clinician Unavailable Miguel Patel DO Attending Clinician MIGUEL PATEL Attending Clinician Unavailable Jaimee Ferrer LMSW Attending Clinician Cbc, Medicare Wellness Howard Mcpherson Attending Clinician Unavailab DUSTIN Holliday Attending Clinician Unavailable Daniel GARBER, Mary Alejandre Attending Clinician Unavailable AMANDA BRAND Attending Clinician Unavailable Provider, [facility] Attending Clinician Unavailable Amanda Gary Attending Clinician PABLO INTERIANO Attending Clinician Unavailable PLACIDO COUGHLIN Attending Clinician Unavailable YONATHAN ELIZALDE Attending Clinician Unavailable Brigida Avilez Attending Clinician Almita Ny MD Attending Clinician ALMITA NY Attending Clinician Unavailable KEN IRWIN Attending Clinician Unavailable KWESI GARRISON Attending Clinician Unavailable James GRIFFIN, Kwesi Attending Clinician CAS RODRIGUEZ Attending Clinician Unavailable John Casiano Attending Clinician Kimberly Ng Attending Clinician Alexa Guerrero Attending Clinician Maria FernandaEstefaníaSuzieChung Vickie Admitting Clinician Unavailable Eri Admitting Clinician Unavailable JACQUELIN GONZALEZ Admitting Clinician Unavailable CHARO WISE Admitting Clinician Unavailable Lm_Leona Admitting Clinician Unavailable CAS RODRIGUEZ Admitting Clinician Unavailable Alexa Guerrero Admitting Clinician Payers Payer Name Policy Type Policy Number Effective Date Expiration Date S carlos MEDICARE PART A \\T\\ [id number] 2010 B 00:00:00 MEDICAID [facility] [id number] 2012 00:00:00 MEDICARE PART A AND [id number] 2010 B 00:00:00 MEDICAID [place] [id number] 2022 TRADITIONAL STAR 00:00:00 NON SSI MEDICARE A B [id number] 2010 00:00:00 MEDICAID [facility] [id number] 2021 00:00:00 [place]: [id number] 2010 [employer] 00:00:00 [place] [id number] [place]ID[place] Problems Condition Condition Condition Status Onset Resolution Last Treating Co mments Source Name Details Category Date Date Treatment Clinician Date SOB SOB Disease Active 2021-11 Univers (shortness (shortness 0-25 it y of [place] breath[place] [facility] New daily New daily Disease Active 2021-11 Uni vers persistent persistent 0-25 it y of headache headache 00:00: [facility] Dizziness Dizziness Disease Active 2021-11 Uni vers 0-25 ity of 00:00: [facility] Branch Wheezing Wheezing Disease Active 2021-11 Unive rs 0-25 ity of 00:00: [facility] Branch Diabetes Diabetes Problem Active 2020-11 Blanco [...] Bariatric Disease Active Uni vers surgery surgery 9 ity of status status 00:00: [place] 00 [...] Chronic Chronic Disease Active Univers bilateral bilateral 9- ity of low back low back 00:00: [place] pain with pain with 00 Medi mari bilateral bilateral Bran ch sciatica sciatica Chest pain Chest pain Disease Active U nivers 7-10 ity of 00:00: [place] 00 Medical Branch Morbid Morbid Disease Active Univers obesity obesity 7-10 ity of with body with body 00:00[place] mass index mass index 00 Me dical of 50 or of 50 or Branch higher higher LOW BACK LOW BACK Diagnosis Active 2018-04-04 Memoria PAIN PAIN -30 13:34:00 l Active 00:00: [place] 03/30/[address] [place] [address] [place] REFLUX-K21 REFLUX-K2 Diagnosis Active 2014-112015-11-08 Memoria .9 1.9 Active 12-19 12:57:00 l 10/18/2015 00:00: [place] ACS (acute ACS (acute Disease Active 2015-0 U nivers coronary coronary 3-16 ity of syndrome) syndrome[place] No known No known Disease [facility] r active active College problems problems of Medicin e Cough Cough Problem Resolve 2019-06-28 Mem oria (finding) (finding) d 15:29:48 l Resolved [place] Problem 06/28/2019 2 weeks ago,, cough, cold , flu; better now [facility], [place] Infection Problem Resolve 2019-06-28 M emoria of ear Infection d 15:29:48 l (disorder) of ear Ulises n (disorder) Resolved Problem 06/28/2019 [facility], [place] Irregular Irregular Problem Resolve 2019-06-28 Memoria heart beat heart beat d 15:29:48 l (finding) (finding) Herm flakita Resolved Problem 06/28/2019 [facility], [place] Muscle Muscle Problem Resolve 2019-06-28 Mem oria pain pain d 15:29:48 l (finding) (finding) Herm flakita Resolved Problem 06/28/2019 [facility], [place] Anxiety Anxiety Problem Active 2019-06-28 Me moria (finding) (finding) 15:29:48 l Active [place] Problem 06/28/2019 [facility], [place] Backache Backache Problem Active 2019-06-28 Memoria (finding) (finding) 15:29:48 l Active [place] Problem 06/28/2019 [facility], [place] Gout Gout Problem Active 2019-06-28 Memor ia (disorder) (disorder) 15:29:48 l Active [place] Problem 06/28/2019 [facility], [place] Hypertensi Hypertens Problem Active 2019-06-28 Memoria ve rosales 15:29:48 l disorder, disorder, Herm flakita systemic systemic arterial arterial (disorder) (disorder) Active Problem 06/28/2019 [facility], [place] Insomnia Insomnia Problem Active 2019-06-28 Memoria (disorder) (disorder) 15:29:48 l Active [place] Problem 06/28/2019 [facility], [place] 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 15:29:48 l (disorder) (disorder) He rmann Active Problem 06/28/2019 [facility], [place] Lumbar Lumbar Problem Active 2019-06-28 [place] radha radiculopa radiculopa 15:29:48 l thy thy [place] (disorder) (disorder) Active Problem 06/28/2019 [facility] Neuro Osteoarthr Osteoarth Problem Active 2019-06-28 Memoria itis ritis 15:29:48 l (disorder) (disorder) He rmann Active Problem 06/28/2019 [facility], [facility] Peripheral Periphera Problem Active 2019-06-28 Memoria nerve l nerve 15:29:48 l disease disease [place] (disorder) (disorder) Active Problem 06/28/2019 [facility], [facility] Sleep Sleep Problem Active 2019-06-28 Memor ia apnea apnea 15:29:48 l (finding) (finding) Herm flakita Active Problem 06/28/2019 [facility], [facility], [place] Cholestero Problem Active 2015-11-11 M emoria l Cholestero 01:38:42 l (substance l [place]ises n ) (substance ) Active Problem 11/11/2015 [place] GASTRO-ESO GASTRO-ES Diagnosis Active 2015-11-08 Memoria PHAGEAL OPHAGEAL 12:57:00 l REFLUX REFLUX [place] DISEASE DISEASE WITHOUT WITHOUT Active [place] Allergies, Adverse Reactions, Alerts Allergy Allergy Status Severity Reaction(s) Onset Inactive Treating Comm ents Source Name Type Date Date Clinician ORANGE DRUG Active Low N/V 2021-11 Univers JUICE INGREDI 11-21 ity of 00:00: [place] 00 [facility] [place] Drug Active Nausea 2021-11 Univers Juice Allergy and/or 11-21 ity of Vomiting 00:00: [address] [place] Propensi Active Other [facility] [place] ty to 07-08 reaction( [place] adverse 00:00: s): of reaction 00 Nausea/Vo Medic in s to miting e drug KIWI Drug Active High Anaphylaxis MD (ACTINID Class 3-27 [place]o [place] 00:00: n CHINENSI 00 S) [place] Propensi Active Other - See Uni [...] Propensi Active [place] ine ty to 11-06 [place] adverse 00:00: of reaction 00 Medicin s to e drug Metoclop Propensi Active [place] ramide ty to 11-06 [place] adverse 00:00: of reaction 00 Medicin s to e drug ORANGE DRUG Active Low NandV JUICE INGREDI 04-18 Anderso 00:00: n 00 doxycycl DA Active U 2020-0 [facility]- [place] 00:00: d 00 [facility] metoclop DA Active U 2020-0 [facility] ramide 2- [place] 00:00: d 00 [facility] doxycycl DA Active U VOMITING 2019-0 [facility] in[facility]- [place] 00:00: d 00 [facility] metoclop DA Active U UNKNOWN 2019-0 [facility] ramide 2- [place] 00:00: d 00 [facility] [place] Propensi Active Nausea 2018-0 Univers ty to and/or 05-11 ity of adverse Vomiting 00:00: [place] reaction 00 Medical s Branch ORANGE DRUG Active Med N/V 2018-0 Univers INGREDI 05-11 ity of 00:00: [place] 00 Medical Branch [place] Propensi Active Nausea And 2018-0 And Jenny Ba ylor ty to Vomiting 05-11 [place] adverse 00:00: of reaction 00 Medicin s to e drug [place] Drug Active Nausea And 2018-[address] [facility] ORANGE Allergy Active Med N\\T\\V 2018-[address] -[facility] METOCLOP DRUG Active High Nausea 2014-0 MD DE LA ROSAIDE INGREDI 01-14 Anderso 00:00: n 00 DOXYCYCL DRUG Active High Nausea 2014-0 INE INGREDI 01-14 Anderso 00:00: n 00 Doxycycl Propensi Active Nausea 2014-0 Univer s ine ty to and/or 3-16 ity of adverse Vomiting 00:00: [place] reaction 00 Medical s Branch Metoclop Propensi Active Unknown - 0 Told by Un allychrissy de la rosageovani ty to See comments 16 anesthesi i ty of Hcl adverse 00:00: ologist [place] reaction 00 that she Medica l s should Branch add to her allergies following a procedure DOXYCYCL DRUG Active High N/V 2015-0 Univers INE INGREDI 3-16 ity of 00:00: [place] [facility] METOCLOP DRUG Active Unknown-Cmnt 2014-0 Oscar ally [place] INGREDI 3-16 ity of HCL 00:00: [place] [facility] METOCLOP DRUG Active High N/V 2014-0 Univers RAMIDE INGREDI 3-16 ity of 00:00: [place] [facility] METOCLOP DRUG Active High Nausea 2015-0 MD RAMIDE INGREDI 3-16 Anderso 00:00: n 00 DOXYCYCL DRUG Active High Nausea 2015-0 MD INE INGREDI -16 Anderso 00:00: n 00 METOCLOP DRUG Active High Nausea 2015-0 MD RAMIDE INGREDI 3-16 Anderso 00:00: n 00 DOXYCYCL DRUG Active High Nausea 2015-0 MD INE INGREDI 3-16 Anderso 00:00: n 00 METOCLOP DRUG Active High Nausea 2015-0 MD RAMIDE INGREDI 3-16 Anderso 00:00: n 00 DOXYCYCL DRUG Active High Nausea 2015-0 MD INE INGREDI 3-16 Anderso 00:00: n 00 METOCLOP DRUG Active High Nausea 2015-0 MD RAMIDE INGREDI 3-16 Anderso 00:00: n 00 DOXYCYCL DRUG Active High Nausea 2015-0 MD INE INGREDI 3-16 Anderso 00:00: n 00 Doxycycl Drug Active Nausea And 2015-[address] ine Allergy Vomiting 16 [facility] Metoclop Drug Active Other (See 2014-0 Told by CARMEN Almeida ramide Allergy Comments) 16 anesthesi Nima es 00:00: ologist [facility] 00 that she Center should add to her allergies following a procedure METOCLOP DRUG Active High Nausea 2015-0 MD RAMIDE INGREDI 3-16 Anderso 00:00: n 00 DOXYCYCL DRUG Active High Nausea 2015-0 MD INE INGREDI 3-16 Anderso 00:00: n 00 METOCLOP DRUG Active High Nausea 2015-0 MD RAMIDE INGREDI 3-16 Anderso 00:00: n 00 DOXYCYCL DRUG Active High Nausea 2015-0 MD INE INGREDI 3-16 Anderso 00:00: n 00 METOCLOP DRUG Active High Nausea 2015-0 MD RAMIDE INGREDI 3-16 Anderso 00:00: n 00 DOXYCYCL DRUG Active High Nausea 2015-0 MD INE INGREDI 3-16 Anderso 00:00: n 00 METOCLOP DRUG Active High Nausea 2015-0 MD RAMIDE INGREDI 3-16 Anderso 00:00: n 00 DOXYCYCL DRUG Active High Nausea 2015-0 MD INE INGREDI 3-16 Anderso 00:00: n 00 METOCLOP DRUG Active High Nausea 2015-0 MD RAMIDE INGREDI 3-16 Anderso 00:00: n 00 DOXYCYCL DRUG Active High Nausea 2015-0 MD INE INGREDI 3-16 Anderso 00:00: n 00 DOXYCYCL Allergy Active High N\\T\\V 2015-[address] INE 3-16 [facility] METOCLOP Allergy Active High Other 2015-[address] RAMIDE 3-16 [facility] Center METOCLOP DRUG Active High Nausea 2015-0 MD RAMIDE INGREDI 3-16 Anderso 00:00: n 00 DOXYCYCL DRUG Active High Nausea 2015-0 MD INE INGREDI 3-16 Anderso 00:00: n 00 METOCLOP DRUG Active High Nausea 2015-0 MD RAMIDE INGREDI 3-16 Anderso 00:00: n 00 DOXYCYCL DRUG Active High Nausea 2015-0 MD INE INGREDI 3-16 Anderso 00:00: n 00 DOXYCYCL DRUG Active High Nausea 2015-0 MD INE INGREDI 3-16 Anderso 00:00: n 00 METOCLOP DRUG Active High Nausea 2015-0 MD RAMIDE INGREDI 3-16 Anderso 00:00: n 00 DOXYCYCL DRUG Active High Nausea 2015-0 MD INE INGREDI 3-16 Anderso 00:00: n 00 METOCLOP DRUG Active High Nausea 2015-0 MD RAMIDE INGREDI 3-16 Anderso 00:00: n 00 DOXYCYCL DRUG Active High Nausea 2015-0 MD INE INGREDI 3-16 Anderso 00:00: n 00 METOCLOP DRUG Active High Nausea 2015-0 MD RAMIDE INGREDI 3-16 Anderso 00:00: n 00 DOXYCYCL DRUG Active High Nausea 2015-0 MD INE INGREDI 3-16 Anderso 00:00: n 00 METOCLOP DRUG Active High Nausea 2015-0 MD RAMIDE INGREDI 3-16 Anderso 00:00: n 00 DOXYCYCL DRUG Active High Nausea 2015-0 MD INE INGREDI 3-16 Anderso 00:00: n 00 METOCLOP DRUG Active High Nausea 2015-0 MD RAMIDE INGREDI 3-16 Anderso 00:00: n 00 DOXYCYCL DRUG Active High Nausea 2015-0 MD INE INGREDI 3-16 Anderso 00:00: n 00 METOCLOP DRUG Active High Nausea 2015-0 MD RAMIDE INGREDI 3-16 Anderso 00:00: n 00 DOXYCYCL DRUG Active High Nausea 2015-0 MD INE INGREDI 3-16 Anderso 00:00: n 00 METOCLOP DRUG Active High Nausea 2015-0 MD RAMIDE INGREDI 3-16 Anderso 00:00: n 00 METOCLOP DRUG Active High Nausea 2015-0 MD RAMIDE INGREDI 3-16 Anderso 00:00: n 00 DOXYCYCL DRUG Active High Nausea 2015-0 MD INE INGREDI 3-16 Anderso 00:00: n 00 METOCLOP DRUG Active High Nausea 2015-0 MD RAMIDE INGREDI 3-16 Anderso 00:00: n 00 DOXYCYCL DRUG Active High Nausea 2015-0 MD INE INGREDI 3-16 Anderso 00:00: n 00 METOCLOP DRUG Active High Nausea 2015-0 MD RAMIDE INGREDI 3-16 Anderso 00:00: n 00 DOXYCYCL DRUG Active High Nausea 2015-0 MD INE INGREDI 3-16 Anderso 00:00: n 00 METOCLOP DRUG Active High Nausea 2015-0 MD RAMIDE INGREDI 3-16 Anderso 00:00: n 00 DOXYCYCL DRUG Active High Nausea 2015-0 MD INE INGREDI 3-16 Anderso 00:00: n 00 doxycycl doxycycl Active Memori a ine ine l [place] Reglan Reglan Active Memoria l [place] NO KNOWN Allergy Active [facility] Social History Social Habit Start Date Stop Date Quantity Comments Source History of tobacco Cigarette Smoker University of use [place] [facility] History SDOH University o f Transport Non-Med [facility] edical Branch Exposure to 2022-10-11 2022-10-21 Not sure University of SARS-CoV-2 (event) 00:00:00 08:51:00 [place] [facility] Cigarettes smoked 2022-08-25 2022-08-25 Univers ity of current (pack per 00:00[facility]00 [facility] Alcohol intake 2022-01-09 2022-01-09 Ex-drinker [facility] Nima es 00:00:00 00:00:00 (finding) [facility] Tobacco use and 2022-01-08 2022-01-[address] Janell kes exposure 00:00:00 00:00:00 [facility] Tobacco Comment 2022-01-08 2022-01-08 only as teenager [facility] 00:[facility] History SDWI Social 2019-08-25 2019-08-25 3 Unive rsity of Connections Phone 00:00:00 00:00:00 [facility] edical Branch History SDOH Social 2019-08-25 2019-08-25 1 Unive rsity of Connections Get 00:00:00 00:00:00 [facility] ical Together Branch History SDWI Social 2019-08-25 2019-08-25 1 Unive rsity of Connections Restoration 00:00:00 00:00:00 [place] [facility] History SDOH Social 2019-08-25 2019-08-25 2 Unive rsity of Connections 00:00:00 00:00:00 [place] [facility] Membership Branch History SDOH Social 2019-08-25 2019-08-25 1 Unive rsity of Connections 00:00:00 00:00:00 [place] [facility] Meetings Branch History SDOH Social 2019-08-25 2019-08-25 5 Unive rsity of Connections Living 00:00:00 00:00:00 [place] [facility] History SDOH 2019-08-25 2019-08-25 0 University o f Physical Activity 00:00:00 00:00:00 [facility] edical DPW Branch History SDOH 2019-08-25 2019-08-25 0 University o f Physical Activity 00:00:00 00:00:00 [facility] edical MPS Branch History SDOH Stress 2019-08-25 [...] University o f Transport Med 00:00:00 00:00:00 [facility] [place] al Branch Social History 2015-11-07 2015-11-07 [facility] 16:48:16 16:48:16 [birth year] CARMEN Hardin kes 00:00:00 00:00:00 Medical Center Smoking Status Start Date Stop Date Source Ex-smoker 2022-08-25 00:00:00 2022-08-25 00:00:00 Universi ty of [facility] Never smoked tobacco [facility] ege of Medicine Medications Ordered Filled Start Stop Current Ordering Indication Dosage Frequency Signature Comments Components Source Medication Medication Date Date Medication? Clinician (SIG) Name Name HYDROcodone Yes [id number] 1{tbl} Take 1 Un ally -acetaminop 1-18 tablet by ity of hen 7.5-325 00:00: mouth [place] mg per 00 every 6 Medical tablet (six) Branch hours as needed for Pain. Indication s: chronic pain HYDROcodone Yes [id number] 1{tbl} Take 1 Un ally -acetaminop 1-18 tablet by ity of hen 7.5-325 00:00: mouth [place] mg per 00 every 6 Medical tablet (six) Branch hours as needed for Pain. Indication s: chronic pain colchicine 2022-0 Yes [id number] .6mg Take 1 U nivers 0.6 mg 1-18 tablet by ity of tablet 00:00: mouth in [place] 00 the Medical morning. Branch HYDROcodone 2022-0 Yes [id number] 1{tbl} Take 1 Un ally -acetaminop 1-18 tablet by ity of hen 7.5-325 00:00: mouth [place] mg per 00 every 6 Medical tablet (six) Branch hours as needed for Pain. Indication s: chronic pain colchicine 2022-0 Yes [id number] .6mg Take 1 U nivers 0.6 mg 1-18 tablet by ity of tablet 00:00: mouth in [place] 00 the Medical morning. Branch HYDROCHLORO 2022-0 Yes [id number] 12.5mg TAKE 1 Univers THIAZIDE 1-09 CAPSULE BY ity o f 12.5 mg 00:00: MOUTH [place] capsule 00 DAILY Medical Branch LISINOPRIL 2022-0 Yes [id number] TAKE 1/2 Univers 40 mg 1-09 TABLET BY ity of tablet 00:00: MOUTH [place] 00 TWICE Medical DAILY Branch HYDRALAZINE 3-0 Yes [id number] TAKE 1 Univers 100 mg 1-09 TABLET BY ity of tablet 00:00: MOUTH [place] 00 THREE Medical TIMES Branch DAILY HYDROCHLORO 3-0 Yes [id number] 12.5mg TAKE 1 Univers THIAZIDE 1-09 CAPSULE BY ity o f 12.5 mg 00:00: MOUTH [place] capsule 00 DAILY Medical Branch LISINOPRIL 2023-0 Yes [id number] TAKE 1/2 Univers 40 mg 1-09 TABLET BY ity of tablet 00:00: MOUTH [place] 00 TWICE Medical DAILY Branch HYDRALAZINE 2023-0 Yes [id number] TAKE 1 Univers 100 mg 1-09 TABLET BY ity of tablet 00:00: MOUTH [place] 00 THREE Medical TIMES Branch DAILY HYDROCHLORO 2023-0 Yes [id number] 12.5mg TAKE 1 Univers THIAZIDE 1-09 CAPSULE BY ity o f 12.5 mg 00:00: MOUTH [place] capsule 00 DAILY Medical Branch LISINOPRIL 2023-0 Yes [id number] TAKE 1/2 Univers 40 mg 1-09 TABLET BY ity of tablet 00:00: MOUTH [place] 00 TWICE Medical DAILY Branch HYDRALAZINE 2022-0 Yes [id number] TAKE 1 Univers 100 mg 1-09 TABLET BY ity of tablet 00:00: MOUTH [place] 00 THREE Medical TIMES Branch DAILY HYDROCHLORO 2022-0 Yes [id number] 12.5mg TAKE 1 Univers THIAZIDE 1-09 CAPSULE BY ity o f 12.5 mg 00:00: MOUTH [place] capsule 00 DAILY Medical Branch LISINOPRIL 2022-0 Yes [id number] TAKE 1/2 Univers 40 mg 1-09 TABLET BY ity of tablet 00:00: MOUTH [place] 00 TWICE Medical DAILY Branch HYDRALAZINE 2022-0 Yes [id number] TAKE 1 Univers 100 mg 1-09 TABLET BY ity of tablet 00:00: MOUTH [place] 00 THREE Medical TIMES Branch DAILY HYDROCHLORO 2022-0 Yes [id number] 12.5mg TAKE 1 Univers THIAZIDE 1-09 CAPSULE BY ity o f 12.5 mg 00:00: MOUTH [place] capsule 00 DAILY Medical Branch LISINOPRIL 2022-0 Yes [id number] TAKE 1/2 Univers 40 mg 1-09 TABLET BY ity of tablet 00:00: MOUTH [place] 00 TWICE Medical DAILY Branch HYDRALAZINE 2022-0 Yes [id number] TAKE 1 Univers 100 mg 1-09 TABLET BY ity of tablet 00:00: MOUTH [place] 00 THREE Medical TIMES Branch DAILY METOPROLOL 2022-0 Yes TAKE 1 Unive rs TARTRATE 1-03 TABLET BY ity of 100 mg 00:00: MOUTH [place] tablet 00 TWICE Medical DAILY Branch METOPROLOL 2022-0 Yes TAKE 1 Unive rs TARTRATE 1-03 TABLET BY ity of 100 mg 00:00: MOUTH [place] tablet 00 TWICE Medical DAILY Branch METOPROLOL 2022-0 Yes TAKE 1 Unive rs TARTRATE 1-03 TABLET BY ity of 100 mg 00:00: MOUTH [place] tablet 00 TWICE Medical DAILY Branch METOPROLOL 2022-0 Yes TAKE 1 Unive rs TARTRATE 1-03 TABLET BY ity of 100 mg 00:00: MOUTH [place] tablet 00 TWICE Medical DAILY Branch METOPROLOL 2022-0 Yes TAKE 1 Unive rs TARTRATE 1-03 TABLET BY ity of 100 mg 00:00: MOUTH [place] tablet 00 TWICE Medical DAILY Branch METOPROLOL 2022-0 Yes TAKE 1 Unive rs TARTRATE 1-03 TABLET BY ity of 100 mg 00:00: MOUTH [place] tablet 00 TWICE Medical DAILY Branch METOPROLOL 0 Yes TAKE 1 Unive rs TARTRATE 1-03 TABLET BY ity of 100 mg 00:00: MOUTH [place] tablet 00 TWICE Medical DAILY Branch METOPROLOL 2022-0 2022- No TAKE 1 Univ ers TARTRATE 1-03 01-03 TABLET BY ity o f 100 mg 00:00: 00:00 MOUTH [place] tablet 00 :00 TWICE Medical DAILY Branch gabapentin 2021-11 Yes [id number] 600mg Take 1 Univers 600 mg 2-21 [...] Indication s: chronic pain Diclofenac 2021-11 Yes [id number] Apply to Univers Sodium 1 % 2-21 area(s) 3 ity of gel 00:00: (three) [place] 00 times Medical daily. Branch gabapentin 2021-11 Yes [id number] 600mg Take 1 Univers 600 mg 2-21 [...] Indication s: chronic pain Diclofenac 2021-11 Yes [id number] Apply to Univers Sodium 1 % 2-21 area(s) 3 ity of gel 00:00: (three) [place] 00 times Medical daily. Branch gabapentin 2021-11 Yes [id number] 600mg Take 1 Univers 600 mg 2-21 [...] Indication s: chronic pain Diclofenac 2021-11 Yes [id number] Apply to Univers Sodium 1 % 2-21 area(s) 3 ity of gel 00:00: (three) [place] 00 times Medical daily. Branch gabapentin 2021-11 Yes [id number] 600mg Take 1 Univers 600 mg 2-21 [...] Indication s: chronic pain Diclofenac 2021-11 Yes [id number] Apply to Univers Sodium 1 % 2-21 area(s) 3 ity of gel 00:00: (three) [place] 00 times Medical daily. Branch gabapentin 2021-11 Yes [id number] 600mg Take 1 Univers 600 mg 2-21 [...] Indication s: chronic pain Diclofenac 2021-11 Yes [id number] Apply to Univers Sodium 1 % 2-21 area(s) 3 ity of gel 00:00: (three) [place] 00 times Medical daily. Branch gabapentin 2021-11 Yes [id number] 600mg Take 1 Univers 600 mg 2-21 tablet by ity of tablet 00:00: mouth in [place] 00 the Medical morning Branch and 1 tablet at noon and 1 tablet in the evening. HYDROcodone 2021- Yes [id number] 1{tbl} Take 1 [facility] -acetaminop 2-21 tablet by ity of hen 7.5-325 00:00: mouth [place] mg per 00 every 6 Medical tablet (six) Branch hours as needed for Pain. Indication s: chronic pain Diclofenac 2021-11 Yes [id number] Apply to [facility] Sodium 1 % 2-21 area(s) 3 ity of gel 00:00: (three) [place] 00 times Medical daily. Branch gabapentin 2021-11 Yes [id number] 600mg Take 1 [facility] 600 mg 2-21 tablet by ity of tablet 00:00: mouth in [place] 00 the Medical morning Branch and 1 tablet at noon and 1 tablet in the evening. Diclofenac 2021-11 Yes [id number] Apply to [facility] Sodium 1 % 2-21 area(s) 3 ity of gel 00:00: (three) [place] 00 times Medical daily. Branch gabapentin 2021-11 Yes [id number] 600mg Take 1 [facility] 600 mg 2-21 tablet by ity of tablet 00:00: mouth in [place] 00 the Medical morning Branch and 1 tablet at noon and 1 tablet in the evening. Diclofenac 2021-11 Yes [id number] Apply to [facility] Sodium 1 % 2-21 area(s) 3 ity of gel 00:00: (three) [place] 00 times Medical daily. Branch gabapentin 2021-11 Yes [id number] 600mg Take 1 [facility] 600 mg 2-21 tablet by ity of tablet 00:00: mouth in [place] 00 the Medical morning Branch and 1 tablet at noon and 1 tablet in the evening. Diclofenac 2021-11 Yes [id number] Apply to [facility] Sodium 1 % 2-21 area(s) 3 ity of gel 00:00: (three) [place] 00 times Medical daily. Branch HYDROcodone 2021-11- No [id number] 1{tbl} Take 1 [facility] nivers -acetaminop 2-21 -18 tablet by it y of hen 7.5-325 00:00: 00:00 [place] mg per 00 :00 every 6 Medical tablet (six) Branch hours as needed for Pain. Indication s: chronic pain ondansetron 2021-11 Yes DISSOLVE 1 [facility] 4 mg 2-14 TABLET ON ity of disintegrat 00:00: THE TONGUE [place] ing tablet 00 EVERY 8 Medica l HOURS Branch NEEDED ondansetron 2021-11 Yes DISSOLVE 1 [facility] 4 mg 2-14 TABLET ON ity of disintegrat 00:00: THE TONGUE [place] ing tablet 00 EVERY 8 Medica l HOURS Branch NEEDED ondansetron 2021- Yes DISSOLVE 1 [facility] 4 mg 2-14 TABLET ON ity of disintegrat 00:00: THE TONGUE [place] ing tablet 00 EVERY 8 Medica l HOURS Branch NEEDED ondansetron 2021- Yes DISSOLVE 1 [facility] 4 mg 2-14 TABLET ON ity of disintegrat 00:00: THE TONGUE [place] ing tablet 00 EVERY 8 Medica l HOURS Branch NEEDED ondansetron 2021- Yes DISSOLVE 1 [facility] 4 mg 2-14 TABLET ON ity of disintegrat 00:00: THE TONGUE [place] ing tablet 00 EVERY 8 Medica l HOURS Branch NEEDED ondansetron 2021- Yes DISSOLVE 1 [facility] 4 mg 2-14 TABLET ON ity of disintegrat 00:00: THE TONGUE [place] ing tablet 00 EVERY 8 Medica l HOURS Branch NEEDED ondansetron 2021- Yes DISSOLVE 1 [facility] 4 mg 2-14 TABLET ON ity of disintegrat 00:00: THE TONGUE [place] ing tablet 00 EVERY 8 Medica l HOURS Branch NEEDED ondansetron 2021- Yes DISSOLVE 1 [facility] 4 mg 2-14 TABLET ON ity of disintegrat 00:00: THE TONGUE [place] ing tablet 00 EVERY 8 Medica l HOURS Branch NEEDED ondansetron 2021- Yes DISSOLVE 1 [facility] 4 mg 2-14 [...] gauge x 00 Medical " [place] [facility] BD DEVORAH 2021-11 Yes 10mg Take 10 mg [facility] GEN PEN 2-05 by mouth. ity of NEEDLE 32 00:00: [place] gauge x 00 Medical " [place] Branch BD DEVORAH 2021-11 Yes 10mg Take 10 mg [facility] GEN PEN 2-05 by mouth. ity of NEEDLE 32 00:00: [place] gauge x 00 Medical " [place] [facility] BD DEVORAH 2021-11 Yes 10mg Take 10 mg [facility] GEN PEN 2-05 by mouth. ity of NEEDLE 32 00:00: [place] gauge x 00 Medical " [place] Branch BD DEVORAH 2021-11 Yes 10mg Take 10 mg [facility] GEN PEN 2-05 by mouth. ity of NEEDLE 32 00:00: [place] gauge x 00 Medical " [place] Branch LISINOPRIL 2021-11 Yes [id number] TAKE 1/2 [facility] 40 mg 2-02 TABLET BY ity of tablet 00:00: MOUTH [place] 00 TWICE Medical DAILY Branch LISINOPRIL 2021-11 Yes [id number] TAKE 1/2 [facility] 40 mg 2-02 TABLET BY ity of tablet 00:00: MOUTH [place] 00 TWICE Medical DAILY Branch LISINOPRIL 2021-11 Yes [id number] TAKE 1/2 [facility] 40 mg 2-02 TABLET BY ity of tablet 00:00: MOUTH [place] 00 TWICE Medical DAILY Branch LISINOPRIL 2021-11 Yes [id number] TAKE 1/2 [facility] 40 mg 2-02 TABLET BY ity of tablet 00:00: MOUTH [place] 00 TWICE Medical DAILY Branch LISINOPRIL 2021-11 Yes [id number] TAKE 1/2 [facility] 40 mg 2-02 TABLET BY ity of tablet 00:00: MOUTH [place] 00 TWICE Medical DAILY Branch LISINOPRIL 2021-11- No [id number] TAKE 1/2 [facility] 40 mg 2-02 -09 TABLET BY ity of tablet 00:00: 00:00 MOUTH [place] 00 :00 TWICE Medical DAILY Branch allopurinol 2021-11- No 100mg Take 100 [facility] (ZYLOPRIM) 1-21 11-21 mg by ity of 100 mg 09:37: 00:00 mouth [place] tablet 13 :00 daily. Medical Branch ALPRAZolam 2021-11- No 2mg Take 2 mg U nivers (XANAX) 1-21 11-21 by mouth ity of 0.25 mg 09:37: 00:00 every 6 [place] tablet 13 :00 (six) Medical hours as Branch needed. allopurinol 2021-11- No 100mg Take 100 [facility] (ZYLOPRIM) 1-21 11-21 mg by ity of 100 mg 09:37: 00:00 mouth [place] tablet 13 :00 daily. Medical Branch ALPRAZolam 2021-11- No 2mg Take 2 mg U nivers (XANAX) -21 11-21 by mouth ity of 0.25 mg 09:37: 00:00 every 6 [place] tablet 13 :00 (six) Medical hours as Branch needed. HYDROcodone 2021-11 Yes [id number] 1{tbl} Take 1 Un ally -acetaminop 1-21 tablet by ity of hen 7.5-325 00:00: mouth [place] mg per 00 every 6 Medical tablet (six) Branch hours as needed for Pain. Indication s: chronic pain metFORMIN 2021-11 Yes [id number] 1000mg Take 1 [facility] 1,000 mg 1-21 tablet by ity of tablet 00:00: mouth in [place] [address] the Medical morning Branch and 1 tablet in the evening. Take with meals. HYDROcodone 2021-11 Yes [id number] 1{tbl} Take 1 [facility] ally -acetaminop 1-21 tablet by ity of hen 7.5-325 00:00: mouth [place] mg per 00 every 6 Medical tablet (six) Branch hours as needed for Pain. Indication s: chronic pain metFORMIN 2021-11 Yes [id number] 1000mg Take 1 [facility] 1,000 mg 1-21 [...] Indication s: chronic pain metFORMIN 2021-11 Yes [id number] 1000mg Take 1 [facility] 1,000 mg 1-21 tablet by ity of tablet 00:00: mouth in [place] [address] the Medical morning Branch and 1 tablet in the evening. Take with meals. HYDROcodone 2021-11 Yes [id number] 1{tbl} Take 1 [facility] ally -acetaminop 1-21 tablet by ity of hen 7.5-325 00:00: mouth [place] mg per 00 every 6 Medical tablet (six) Branch hours as needed for Pain. Indication s: chronic pain metFORMIN 2021-11 Yes [id number] 1000mg Take 1 [facility] 1,000 mg 1-21 tablet by ity of tablet 00:00: mouth in [place] [address] the Medical morning [place] and 1 tablet in the evening. Take with meals. metFORMIN 2021-11 Yes [id number] 1000mg Take 1 [facility] 1,000 mg 1-21 tablet by ity of tablet 00:00: mouth in [place] [address] the [facility] morning [place] and 1 tablet in the evening. Take with meals. neomycin-po 2021-11 Yes INSTILL 4 U nivers lymyxin-hyd 1-21 DROPS TO ity of rocortisone 00:00: AFFECTED [place] otic 00 EAR FOUR Medical solution TIMES Branch DAILY metFORMIN 2021-11 Yes [id number] 1000mg Take 1 [facility] 1,000 mg 1-21 tablet by ity of tablet 00:00: mouth in [place] [address] the [facility] morning [place] and 1 tablet in the evening. Take with meals. neomycin-po 2021-11 Yes INSTILL 4 U nivers lymyxin-hyd 1-21 DROPS TO ity of rocortisone 00:00: AFFECTED [place] otic 00 EAR FOUR Medical solution TIMES Branch DAILY metFORMIN 2021-11 Yes [id number] 1000mg Take 1 [facility] 1,000 mg 1-21 tablet by ity of tablet 00:00: mouth in [place] [address] the [facility] morning [place] and 1 tablet in the evening. Take with meals. neomycin-po 2021-11 Yes INSTILL 4 U nivers lymyxin-hyd 1-21 DROPS TO ity of rocortisone 00:00: AFFECTED [place] otic 00 EAR FOUR Medical solution TIMES Branch DAILY metFORMIN 2021-11 Yes [id number] 1000mg Take 1 [facility] 1,000 mg 1-21 tablet by ity of tablet 00:00: mouth in [place] [address] the [facility] morning [place] and 1 tablet in the evening. Take with meals. neomycin-po 2021-11 Yes INSTILL 4 U nivers lymyxin-hyd 1-21 DROPS TO ity of rocortisone 00:00: AFFECTED [place] otic 00 EAR FOUR Medical solution TIMES Branch DAILY metFORMIN 2021-11 Yes [id number] 1000mg Take 1 [facility] 1,000 mg 1-21 tablet by ity of tablet 00:00: mouth in [address] morning [place] and 1 tablet in the evening. Take with meals. neomycin-po 2021-11 Yes INSTILL 4 U nivers lymyxin-hyd 1-21 DROPS TO ity of rocortisone 00:00: AFFECTED [place] otic 00 EAR FOUR Medical solution TIMES Branch DAILY metFORMIN 2021-11 Yes [id number] 1000mg Take 1 [facility] 1,000 mg 1-21 tablet by ity of tablet 00:00: mouth in [address] morning [place] and 1 tablet in the evening. Take with meals. neomycin-po 2021-11 Yes INSTILL 4 U nivers lymyxin-hyd 1-21 DROPS TO ity of rocortisone 00:00: AFFECTED [place] otic 00 EAR FOUR Medical solution TIMES Branch DAILY metFORMIN 2021-11 Yes [id number] 1000mg Take 1 [facility] 1,000 mg 1-21 tablet by ity of tablet 00:00: mouth in [address] and 1 tablet in the evening. Take with meals. neomycin-po 2021-11 Yes INSTILL 4 U nivers lymyxin-hyd 1-21 DROPS TO ity of rocortisone 00:00: AFFECTED [place] otic 00 EAR FOUR Medical solution TIMES Branch DAILY metFORMIN 2021-11 Yes [id number] 1000mg Take 1 [facility] 1,000 mg 1-21 tablet by ity of tablet 00:00: mouth in [address] and 1 tablet in the evening. Take with meals. neomycin-po 2021-11 Yes INSTILL 4 U nivers lymyxin-hyd 1-21 DROPS TO ity of rocortisone 00:00: AFFECTED [place] otic 00 EAR FOUR Medical solution TIMES Branch DAILY metFORMIN 2021-11 Yes [id number] 1000mg Take 1 [facility] 1,000 mg 1-21 tablet by ity of tablet 00:00: mouth in [address] and 1 tablet in the evening. [...] Indication s: chronic pain GABAPENTIN 2021-11 Yes [id number] TAKE 1 [facility] 600 mg 1-17 TABLET BY ity of tablet 00:00: [facility] 00 THREE Medical TIMES Branch DAILY GABAPENTIN 2021-11 Yes [id number] TAKE 1 [facility] 600 mg 1-17 TABLET BY ity of tablet 00:00: [facility] THREE Medical TIMES Branch DAILY GABAPENTIN 2021-11 Yes [id number] TAKE 1 [facility] 600 mg 1-17 TABLET BY ity of tablet 00:00: [facility] 00 THREE Medical TIMES Branch DAILY GABAPENTIN 2021-11 Yes [id number] TAKE 1 [facility] 600 mg 1-17 TABLET BY ity of tablet 00:00: [facility] 00 THREE Medical TIMES Branch DAILY GABAPENTIN 2021- Yes [id number] TAKE 1 [facility] 600 mg 1-17 TABLET BY ity of tablet 00:00: [facility] 00 THREE Medical TIMES Branch DAILY GABAPENTIN 2021-11 Yes [id number] TAKE 1 [facility] 600 mg 1-17 TABLET BY ity of tablet 00:00: [facility] 00 THREE Medical TIMES Branch DAILY GABAPENTIN 2021-2021- No [id number] TAKE 1 [facility] 600 mg 1-17 12-21 TABLET BY ity of tablet 00:00: 00:00 MOUTH [place] 00 :00 THREE Medical TIMES Branch DAILY GABAPENTIN 2021-2021- No [id number] TAKE 1 [facility] 600 mg 1-17 12-21 TABLET BY ity of tablet 00:00: 00:00 MOUTH [place] 00 :00 THREE Medical TIMES Branch DAILY ALPRAZolam 2021-11 Yes 2mg Take 2 mg [facility] ally 2 mg tablet 1-12 by mouth 3 it y of 00:00: (three) [place] 00 times Medical daily as Branch needed. atorvastati 2022-1 Yes 20mg Take 20 mg Univers n 20 mg 1-12 by mouth ity of tablet 00:00: in the [place] 00 morning. Medical Branch ALPRAZolam 2-1 Yes 2mg Take 2 mg [facility] ally 2 mg tablet 1-12 by mouth 3 it y of 00:00: (three) [place] 00 times Medical daily as Branch needed. atorvastati 2-1 Yes 20mg Take 20 mg [facility] n 20 mg 1-12 by mouth ity of tablet 00:00: in the [place] 00 morning. Medical Branch ALPRAZolam 2-1 Yes 2mg Take 2 mg [facility] ally 2 mg tablet 1-12 by mouth 3 it y of 00:00: (three) [place] 00 times Medical daily as Branch needed. atorvastati 2-1 Yes 20mg Take 20 mg [facility] n 20 mg 1-12 by mouth ity of tablet 00:00: in the [place] 00 morning. Medical Branch ALPRAZolam 2-1 Yes 2mg Take 2 mg [facility] ally 2 mg tablet 1-12 by mouth 3 it y of 00:00: (three) [place] 00 times Medical daily as Branch needed. atorvastati 2-1 Yes 20mg Take 20 mg [facility] n 20 mg 1-12 by mouth ity of tablet 00:00: in the [place] 00 morning. Medical Branch ALPRAZolam 2-1 Yes 2mg Take 2 mg [facility] ally 2 mg tablet 1-12 by mouth 3 it y of 00:00: (three) [place] 00 times Medical daily as Branch needed. atorvastati 2-1 Yes 20mg Take 20 mg [facility] n 20 mg 1-12 by mouth ity of tablet 00:00: in the [place] 00 morning. Medical Branch ALPRAZolam 2-1 Yes 2mg Take 2 mg [facility] ally 2 mg tablet 1-12 by mouth 3 it y of 00:00: (three) [place] 00 times Medical daily as Branch needed. atorvastati 2022-1 Yes 20mg Take 20 mg [facility] n 20 mg 1-12 by mouth ity of tablet 00:00: in the [place] 00 morning. Medical Branch ALPRAZolam 2-1 Yes 2mg Take 2 mg Un ally [...] times Medical daily as Branch needed. atorvastati 2-1 Yes 20mg Take 20 mg [facility] n [...] times Medical daily as Branch needed. atorvastati 2-1 Yes 20mg Take 20 mg [facility] n 20 mg 1-12 by mouth ity of tablet 00:00: in the [place] 00 morning. Medical Branch ALPRAZolam 2021- Yes 2mg Take 2 mg Un ally 2 mg tablet 1-12 by mouth 3 it y of 00:00: (three) [place] 00 times Medical daily as Branch needed. atorvastati 2-1 Yes 20mg Take 20 mg [facility] n 20 mg 1-12 by mouth ity of tablet 00:00: in the [place] 00 morning. Medical Branch ALPRAZolam 2021-1 Yes 2mg Take 2 mg Un ally 2 mg tablet 1-12 by mouth 3 it y of 00:00: (three) [place] 00 times Medical daily as Branch needed. atorvastati 2021-11 Yes 20mg Take 20 mg [facility] n 20 mg 1-12 by mouth ity of tablet 00:00: in the [place] morning. Medical Branch hydrocortis 2021-11 Yes APPLY [...] ity of capsule 00:00: MOUTH [place] 00 THREE Medical TIMES Branch DAILY NEEDED [...] [place] 00 the Medical morning Branch and 0.1 mg at noon and 0.1 mg in the evening. benzonatate 2021-11 Yes TAKE 1 Univ ers 100 mg 1-05 CAPSULE BY ity of capsule 00:00: MOUTH [place] [address] THREE Medical TIMES Branch DAILY NEEDED FOR [...] CAPSULE BY ity of capsule 00:00: MOUTH [place] [address] THREE Medical TIMES Branch DAILY NEEDED FOR [...] [place] 00 the Medical morning Branch and 0.1 [...] [place] 00 the Medical morning Branch and 0.1 [...] [place] 00 the Medical morning Branch and 0.1 [...] CAPSULE BY ity of capsule 00:00: MOUTH [place] [address] THREE Medical TIMES Branch DAILY NEEDED FOR [...] CAPSULE BY ity of capsule 00:00: MOUTH [place] [address] THREE Medical TIMES [place] DAILY NEEDED FOR COUGH codeine-gua 2021-11 Yes [...] [place] 00 the Medical morning Branch and 0.1 [...] mg in the evening. LISINOPRIL 2021-11 Yes [id number] TAKE 1/2 [facility] 40 mg 1-04 TABLET BY ity of tablet 00:00: MOUTH [place] 00 TWICE Medical DAILY Branch LISINOPRIL 2021-11 Yes [id number] TAKE 1/2 [facility] 40 mg 1-04 TABLET BY ity of tablet 00:00: MOUTH [place] 00 TWICE Medical DAILY Branch LISINOPRIL 2021-11 Yes [id number] TAKE 1/2 [facility] 40 mg 1-04 TABLET BY ity of tablet 00:00: MOUTH [place] 00 TWICE Medical DAILY Branch LISINOPRIL 2021-11 Yes [id number] TAKE 1/2 [facility] 40 mg 1-04 TABLET BY ity of tablet 00:00: MOUTH [place] 00 TWICE Medical DAILY Branch LISINOPRIL 2021-11 Yes [id number] TAKE 1/2 [facility] 40 mg 1-04 TABLET BY ity of tablet 00:00: MOUTH [place] 00 TWICE Medical DAILY Branch LISINOPRIL 2021-11 Yes [id number] TAKE 1/2 [facility] 40 mg 1-04 TABLET BY ity of tablet 00:00: MOUTH [place] 00 TWICE Medical DAILY Branch LISINOPRIL 2021-11 Yes [id number] TAKE 1/2 [facility] 40 mg 1-04 TABLET BY ity of tablet 00:00: MOUTH [place] 00 TWICE Medical DAILY Branch LISINOPRIL 2021-11- No [id number] TAKE 1/2 [facility] 40 mg 1-04 12-02 TABLET BY ity of tablet 00:00: 00:00 MOUTH [place] 00 :00 TWICE Medical DAILY Branch hydrALAZINE 2021-11 Yes [id number] TAKE 1 [facility] 100 mg 1-03 TABLET BY ity of tablet 00:00: MOUTH [place] 00 THREE Medical TIMES Branch DAILY lisinopriL 2021-11 Yes [id number] TAKE 1/2 [facility] 40 mg 1-03 TABLET BY ity of tablet 00:00: MOUTH [place] 00 TWICE Medical DAILY Branch metoprolol 2021-11 Yes TAKE 1 Unive rs tartrate 1-03 TABLET BY ity of 100 mg 00:00: MOUTH [place] tablet 00 TWICE Medical DAILY Branch hydrALAZINE 2021-11 Yes [id number] TAKE 1 [facility] 100 mg 1-03 TABLET BY ity of tablet 00:00: MOUTH [place] 00 THREE Medical TIMES Branch DAILY metoprolol 2021-11 Yes TAKE 1 Unive rs tartrate 1-03 TABLET BY ity of 100 mg 00:00: MOUTH [place] tablet 00 TWICE Medical DAILY Branch hydrALAZINE 2021-11 Yes [id number] TAKE 1 [facility] 100 mg 1-03 TABLET BY ity of tablet 00:00: MOUTH [place] 00 THREE Medical TIMES Branch DAILY metoprolol 2021-11 Yes TAKE 1 Unive rs tartrate 1-03 TABLET BY ity of 100 mg 00:00: MOUTH [place] tablet 00 TWICE Medical DAILY Branch hydrALAZINE 2021-11 Yes [id number] TAKE 1 [facility] 100 mg 1-03 TABLET BY ity of tablet 00:00: MOUTH [place] 00 THREE Medical TIMES Branch DAILY metoprolol 2021-11 Yes TAKE 1 Unive rs tartrate 1-03 TABLET BY ity of 100 mg 00:00: MOUTH [place] tablet 00 TWICE Medical DAILY Branch hydrALAZINE 2021-11 Yes [id number] TAKE 1 [facility] 100 mg 1-03 TABLET BY ity of tablet 00:00: MOUTH [place] 00 THREE Medical TIMES Branch DAILY metoprolol 2021-11 Yes TAKE 1 Unive rs tartrate 1-03 TABLET BY ity of 100 mg 00:00: MOUTH [place] tablet 00 TWICE Medical DAILY Branch hydrALAZINE 2021-11 Yes [id number] TAKE 1 [facility] 100 mg 1-03 TABLET BY ity of tablet 00:00: MOUTH [place] 00 THREE Medical TIMES Branch DAILY metoprolol 2021-11 Yes TAKE 1 Unive rs tartrate 1-03 TABLET BY ity of 100 mg 00:00: MOUTH [place] tablet 00 TWICE Medical DAILY Branch hydrALAZINE 2021-11 Yes [id number] TAKE 1 [facility] 100 mg 1-03 TABLET BY ity of tablet 00:00: MOUTH [place] 00 THREE Medical TIMES Branch DAILY metoprolol 2021-11 Yes TAKE 1 Unive rs tartrate 1-03 TABLET BY ity of 100 mg 00:00: MOUTH [place] tablet 00 TWICE Medical DAILY Branch hydrALAZINE 2021-11 Yes [id number] TAKE 1 [facility] 100 mg 1-03 TABLET BY ity of tablet 00:00: MOUTH [place] 00 THREE Medical TIMES Branch DAILY metoprolol 2021-11 Yes TAKE 1 Unive rs tartrate 1-03 TABLET BY ity of 100 mg 00:00: MOUTH [place] tablet 00 TWICE Medical DAILY Branch hydrALAZINE 2021-11 Yes [id number] TAKE 1 [facility] 100 mg 1-03 TABLET BY ity of tablet 00:00: MOUTH [place] 00 THREE Medical TIMES Branch DAILY metoprolol 2021-11 Yes TAKE 1 Unive rs tartrate 1-03 TABLET BY ity of 100 mg 00:00: MOUTH [place] tablet 00 TWICE Medical DAILY Branch hydrALAZINE 2021-11 Yes [id number] TAKE 1 [facility] 100 mg 1-03 TABLET BY ity of tablet 00:00: MOUTH [place] 00 THREE Medical TIMES Branch DAILY metoprolol 2021-11 Yes TAKE 1 Unive rs tartrate 1-03 TABLET BY ity of 100 mg 00:00: MOUTH [place] tablet 00 TWICE Medical DAILY Branch hydrALAZINE 2021-11 Yes [id number] TAKE 1 [facility] 100 mg 1-03 TABLET BY ity of tablet 00:00: MOUTH [place] 00 THREE Medical TIMES Branch DAILY metoprolol 2021-11 Yes TAKE 1 Unive rs tartrate 1-03 TABLET BY ity of 100 mg 00:00: MOUTH [place] tablet 00 TWICE Medical DAILY Branch hydrALAZINE 2021-11 Yes [id number] TAKE 1 [facility] 100 mg 1-03 TABLET BY ity of tablet 00:00: MOUTH [place] 00 THREE Medical TIMES Branch DAILY hydrALAZINE 2021-11 Yes [id number] TAKE 1 [facility] 100 mg 1-03 TABLET BY ity of tablet 00:00: MOUTH [place] 00 THREE Medical TIMES Branch DAILY hydrALAZINE 2021-11- No [id number] TAKE 1 [facility] 100 mg 11-03 TABLET BY ity of tablet 00:00: 00:00 MOUTH [place] 00 :00 THREE Medical TIMES Branch DAILY metoprolol 2021-11- No TAKE 1 Univ ers tartrate 11-03 TABLET BY ity o f 100 mg 00:00: 00:00 MOUTH [place] tablet 00 :00 TWICE Medical DAILY Branch lisinopriL 2021-11- No [id number] TAKE 1/2 [facility] 40 mg 11-03 TABLET BY ity of tablet 00:00: [...] [place] the Medical morning Branch and 300 mg [...] by ity of tablet 00:00: mouth in [place] [address] the Medical morning Branch and 300 mg in the evening. allopurinoL 2021-11 Yes 300mg Take 300 U nivers 300 mg 1-01 mg by ity of tablet 00:00: mouth in [place] [address] the Medical morning Branch and 300 mg [...] AREA TWICE Branch DAILY ketorolac 2021-11- No [id number] 30mg [facility] (TORADOL) 0-25 10-25 9105 ity of injection 16:45: 16:45 [place] 30 mg 00 :00 [facility] Branch ketorolac 2021-11- No [id number] 30mg 30 mg, [facility] (TORADOL) 0-25 10-25 9105 [facility] ity of injection 16:45: 16:45 [place], ONCE, [place] 30 mg 00 :00 1 dose, On [facility] Branch 08/25/22 at 1145, Routine ketorolac 2021-11- No [id number] 30mg [facility] (TORADOL) 0-25 10-25 9105 ity of injection 16:45: 16:45 [place] 30 mg 00 :00 [facility] ketorolac 2021-11- No [id number] 30mg 30 mg, [facility] (TORADOL) 0-25 10-25 9105 [facility] ity of injection 16:45: 16:45 [place], ONCE, [place] 30 mg 00 :00 1 dose, On Medical Tue Branch 08/25/22 at 1145, Routine rizatriptan 2021-11 Yes [id number] 5mg Take 1 [facility] 5 mg 0-25 9105 tablet by ity of disintegrat 00:00: mouth as [place] ing tablet 00 needed for Med ical Migraine Branch (take 1 on onset of migraine and can repeat in 2 hrs). May repeat in 2 hours if needed rizatriptan 2021-11 Yes [id number] 5mg Take 1 [facility] 5 mg 0-25 9105 tablet by ity of disintegrat 00:00: mouth as [place] ing tablet 00 needed for Med ical Migraine Branch (take 1 on onset of migraine and can repeat in 2 hrs). May repeat in 2 hours if needed rizatriptan 2021-11 Yes [id number] 5mg Take 1 [facility] 5 mg 0-25 9105 tablet by ity of disintegrat 00:00: mouth as [place] ing tablet 00 needed for Med ical Migraine Branch (take 1 on onset of migraine and can repeat in 2 hrs). May repeat in 2 hours if needed rizatriptan 2021-11 Yes [id number] 5mg Take 1 [facility] 5 mg 0-25 9105 tablet by ity of disintegrat 00:00: mouth as [place] ing tablet 00 needed for Med ical Migraine Branch (take 1 on onset of migraine and can repeat in 2 hrs). May repeat in 2 hours if needed rizatriptan 2021-11 Yes [id number] 5mg Take 1 [facility] 5 mg 0-25 9105 tablet by ity of disintegrat 00:00: mouth as [place] ing tablet 00 needed for Med ical Migraine Branch (take 1 on onset of migraine and can repeat in 2 hrs). May repeat in 2 hours if needed rizatriptan 2021-11 Yes [id number] 5mg Take 1 [facility] 5 mg 0-25 9105 tablet by ity of disintegrat 00:00: mouth as [place] ing tablet 00 needed for Med ical Migraine Branch (take 1 on onset of migraine and can repeat in 2 hrs). May repeat in 2 hours if needed rizatriptan 2021-11 Yes [id number] 5mg Take 1 [facility] 5 mg 0-25 9105 tablet by ity of disintegrat 00:00: mouth as [place] ing tablet 00 needed for Med ical Migraine Branch (take 1 on onset of migraine and can repeat in 2 hrs). May repeat in 2 hours if needed rizatriptan 2021-11 Yes [id number] 5mg Take 1 [facility] 5 mg 0-25 9105 tablet by ity of disintegrat 00:00: mouth as [place] ing tablet 00 needed for Med ical Migraine Branch (take 1 on onset of migraine and can repeat in 2 hrs). May repeat in 2 hours if needed rizatriptan 2021-11 Yes [id number] 5mg Take 1 [facility] 5 mg 0-25 9105 tablet by ity of disintegrat 00:00: mouth as [place] ing tablet 00 needed for Med ical Migraine Branch (take 1 on onset of migraine and can repeat in 2 hrs). May repeat in 2 hours if needed rizatriptan 2021-11 Yes [id number] 5mg Take 1 [facility] 5 mg 0-25 9105 tablet by ity of disintegrat 00:00: mouth as [place] ing tablet 00 needed for Med ical Migraine Branch (take 1 on onset of migraine and can repeat in 2 hrs). May repeat in 2 hours if needed rizatriptan 2021-11 Yes [id number] 5mg Take 1 [facility] 5 mg 0-25 9105 tablet by ity of disintegrat 00:00: mouth as [place] ing tablet 00 needed for Med ical Migraine Branch (take 1 on onset of migraine and can repeat in 2 hrs). May repeat in 2 hours if needed rizatriptan 2021-11 Yes [id number] 5mg Take 1 [facility] 5 mg 0-25 9105 tablet by ity of disintegrat 00:00: mouth as [place] ing tablet 00 needed for Med ical Migraine Branch (take 1 on onset of migraine and can repeat in 2 hrs). May repeat in 2 hours if needed rizatriptan 2021-11 Yes [id number] 5mg Take 1 [facility] 5 mg 0-25 9105 tablet by ity of disintegrat 00:00: mouth as [place] ing tablet 00 needed for Med ical Migraine Branch (take 1 on onset of migraine and can repeat in 2 hrs). May repeat in 2 hours if needed rizatriptan 2021-11 Yes [id number] 5mg Take 1 [facility] 5 mg 0-25 9105 tablet by ity of disintegrat 00:00: mouth as [place] ing tablet 00 needed for Med ical Migraine Branch (take 1 on onset of migraine and can repeat in 2 hrs). May repeat in 2 hours if needed rizatriptan 2021-11 Yes [id number] 5mg Take 1 [facility] 5 mg 0-25 9105 tablet by ity of disintegrat 00:00: mouth as [place] ing tablet 00 needed for Med ical Migraine Branch (take 1 on onset of migraine and can repeat in 2 hrs). May repeat in 2 hours if needed rizatriptan 2021-11 Yes [id number] 5mg Take 1 [facility] 5 mg 0-25 9105 tablet by ity of disintegrat 00:00: [place] tablet 00 needed for Med ical Migraine Branch (take 1 on onset of migraine and can repeat in 2 hrs). May repeat in 2 hours if needed rizatriptan 2021-11 Yes [id number] 5mg Take 1 [facility] 5 mg 0-25 9105 tablet by [facility] of disintegrat 00:00: [place] tablet 00 needed for Med ical Migraine Branch (take 1 on onset of migraine and can repeat in 2 hrs). May repeat in 2 hours if needed rizatriptan 2021-11 Yes [id number] 5mg Take 1 [facility] 5 mg 0-25 9105 tablet by it[facility] of disintegrat 00:00: [place] tablet 00 needed for Med ical Migraine Branch (take 1 on onset of migraine and can repeat in 2 hrs). May repeat in 2 hours if needed rizatriptan 2021-11 Yes [id number] 5mg Take 1 [facility] 5 mg 0-25 9105 tablet by [facility] of disintegrat 00:00: [place] tablet 00 needed for Med ical Migraine Branch (take 1 on onset of migraine and can repeat in 2 hrs). May repeat in 2 hours if needed rizatriptan 2021-11 Yes [id number] 5mg Take 1 [facility] 5 mg 0-25 9105 tablet by [facility] of disintegrat 00:00: [place] tablet 00 needed for Med ical Migraine Branch (take 1 on onset of migraine and can repeat in 2 hrs). May repeat in 2 hours if needed rizatriptan 2021-11 Yes [id number] 5mg Take 1 [facility] 5 mg 0-25 9105 tablet by [facility] of disintegrat 00:00: mouth [place] tablet 00 needed for Med ical Migraine Branch (take 1 on onset of migraine and can repeat in 2 hrs). May repeat in 2 hours if needed rizatriptan 2021-11 Yes [id number] 5mg Take 1 [facility] 5 mg 0-25 9105 tablet by [facility] of disintegrat 00:00: [place] tablet 00 needed for Med ical Migraine Branch (take 1 on onset of migraine and can repeat in 2 hrs). May repeat in 2 hours if needed rizatriptan 2021-11 Yes [id number] 5mg Take 1 [facility] 5 mg 0-25 9105 tablet by [facility] of disintegrat 00:00: mouth [place] tablet 00 needed for Med ical Migraine Branch (take 1 on onset of migraine and can repeat in 2 hrs). May repeat in 2 hours if needed rizatriptan 2021-11 Yes [id number] 5mg Take 1 [facility] 5 mg 0-25 9105 tablet by [facility] of disintegrat 00:00: mouth [place] tablet 00 needed for Med ical Migraine Branch (take 1 on onset of migraine and can repeat in 2 hrs). May repeat in 2 hours if needed NITROGLYCER 2021-[id number] 1 [facility] IN 0.4 mg 0-24 TABLET ity of sublingual 00:00: UNDER THE [place] tablet 00 TONGUE Medical EVERY 5 Branch MINUTES NEEDED FOR CHEST PAIN. NITROGLYCER 2021-[id number] 1 [facility] IN 0.4 mg 0-24 TABLET ity of sublingual 00:00: UNDER THE [place] tablet 00 TONGUE Medical EVERY 5 Branch MINUTES NEEDED FOR CHEST PAIN. NITROGLYCER 2021-[id number] 1 [facility] IN 0.4 mg 0-24 TABLET ity of sublingual 00:00: UNDER THE [place] tablet 00 TONGUE Medical EVERY 5 Branch MINUTES NEEDED FOR CHEST PAIN. NITROGLYCER 2021-[id number] 1 [facility] IN 0.4 mg 0-24 TABLET ity of sublingual 00:00: UNDER THE [place] tablet 00 TONGUE Medical EVERY 5 Branch MINUTES NEEDED FOR CHEST PAIN. NITROGLYCER 2021-[id number] 1 [facility] IN 0.4 mg 0-24 TABLET ity of sublingual 00:00: UNDER THE [place] tablet 00 TONGUE Medical EVERY 5 Branch MINUTES NEEDED FOR CHEST PAIN. NITROGLYCER 2021-[id number] 1 [facility] IN 0.4 mg 0-24 TABLET ity of sublingual 00:00: UNDER THE [place] tablet 00 TONGUE Medical EVERY 5 Branch MINUTES NEEDED FOR CHEST PAIN. NITROGLYCER 2021-[id number] 1 [facility] IN 0.4 mg 0-24 TABLET ity of sublingual 00:00: UNDER THE [place] tablet 00 TONGUE Medical EVERY 5 Branch MINUTES NEEDED FOR CHEST PAIN. NITROGLYCER 2021-[id number] 1 [facility] IN 0.4 mg 0-24 TABLET ity of sublingual 00:00: UNDER THE [place] tablet 00 TONGUE Medical EVERY 5 Branch MINUTES NEEDED FOR CHEST PAIN. NITROGLYCER 2021-[id number] 1 [facility] IN 0.4 mg 0-24 TABLET ity of sublingual 00:00: UNDER THE [place] tablet 00 TONGUE Medical EVERY 5 Branch MINUTES NEEDED FOR CHEST PAIN. NITROGLYCER 2021-[id number] 1 [facility] IN 0.4 mg 0-24 TABLET ity of sublingual 00:00: UNDER THE [place] tablet 00 TONGUE Medical EVERY 5 Branch MINUTES NEEDED FOR CHEST PAIN. NITROGLYCER 2021-[id number] 1 [facility] IN 0.4 mg 0-24 TABLET ity of sublingual 00:00: UNDER THE [place] tablet 00 TONGUE Medical EVERY 5 Branch MINUTES NEEDED FOR CHEST PAIN. NITROGLYCER 2021-[id number] 1 [facility] IN 0.4 mg 0-24 TABLET ity of sublingual 00:00: UNDER THE [place] tablet 00 TONGUE Medical EVERY 5 Branch MINUTES NEEDED FOR CHEST PAIN. NITROGLYCER 2021-[id number] 1 [facility] IN 0.4 mg 0-24 TABLET ity of sublingual 00:00: UNDER THE [place] tablet 00 TONGUE Medical EVERY 5 Branch MINUTES NEEDED FOR CHEST PAIN. NITROGLYCER 2021-[id number] 1 [facility] IN 0.4 mg 0-24 TABLET ity of sublingual 00:00: UNDER THE [place] tablet 00 TONGUE Medical EVERY 5 Branch MINUTES NEEDED FOR CHEST PAIN. NITROGLYCER 2021-[id number] 1 [facility] IN 0.4 mg 0-24 TABLET ity of sublingual 00:00: UNDER THE [place] tablet 00 TONGUE Medical EVERY 5 Branch MINUTES NEEDED FOR CHEST PAIN. NITROGLYCER 2021-[id number] 1 [facility] IN 0.4 mg 0-24 TABLET ity of sublingual 00:00: UNDER THE [place] tablet 00 TONGUE Medical EVERY 5 Branch MINUTES NEEDED FOR CHEST PAIN. NITROGLYCER 2021-[id number] 1 [facility] IN 0.4 mg 0-24 TABLET ity of sublingual 00:00: UND[facility] THE [place] tablet 00 TONGUE Medical EVERY 5 Branch MINUTES NEEDED FOR CHEST PAIN. NITROGLYCER 2021-[id number] 1 [facility] IN 0.4 mg 0-24 TABLET ity of sublingual 00:00: UNDER THE [place] tablet 00 TONGUE Medical EVERY 5 Branch MINUTES NEEDED FOR CHEST PAIN. NITROGLYCER 2021-[id number] 1 [facility] IN 0.4 mg 0-24 TABLET ity of sublingual 00:00: UNDER THE [place] tablet 00 TONGUE Medical EVERY 5 Branch MINUTES NEEDED FOR CHEST PAIN. NITROGLYCER 2021-[id number] 1 [facility] IN 0.4 mg 0-24 TABLET ity of sublingual 00:00: [facility]ER THE [place] tablet 00 TONGUE Medical EVERY 5 Branch MINUTES NEEDED FOR CHEST PAIN. NITROGLYCER 2021-[id number] 1 [facility] IN 0.4 mg 0-24 TABLET ity of sublingual 00:00: UNDER THE [place] tablet 00 TONGUE Medical EVERY 5 Branch MINUTES NEEDED FOR CHEST PAIN. NITROGLYCER 2021-[id number] 1 [facility] IN 0.4 mg 0-24 TABLET ity of sublingual 00:00: UND[facility] THE [place] tablet 00 TONGUE Medical EVERY 5 Branch MINUTES NEEDED FOR CHEST PAIN. NITROGLYCER 2021-[id number] 1 [facility] IN 0.4 mg 0-24 TABLET ity of sublingual 00:00: UND[facility] THE [place] tablet 00 TONGUE Medical EVERY 5 Branch MINUTES NEEDED FOR CHEST PAIN. NITROGLYCER 2021-[id number] 1 [facility] IN 0.4 mg 0-24 TABLET ity of sublingual 00:00: UNDER THE [place] tablet 00 TONGUE Medical EVERY 5 Branch MINUTES NEEDED FOR CHEST PAIN. NITROGLYCER 2021- Yes [id number] PLACE 1 [facility] IN 0.4 mg 0-24 TABLET ity of sublingual 00:00: UNDER THE [place] tablet 00 TONGUE Medical EVERY 5 Branch MINUTES NEEDED FOR CHEST PAIN. NITROGLYCER 2021-[id number] 1 [facility] IN 0.4 mg 0-24 TABLET ity of sublingual 00:00: UNDER THE [place] tablet 00 TONGUE Medical EVERY 5 Branch MINUTES NEEDED FOR CHEST PAIN. GABAPENTIN 2021- Yes [id number] TAKE 1 [facility] 600 mg 0-21 TABLET BY ity of tablet 00:00: MOUTH [place] THREE Medical TIMES Branch DAILY GABAPENTIN 2-1 Yes [id number] TAKE 1 [facility] 600 mg 0-21 TABLET BY ity of tablet 00:00: MOUTH THREE Medical TIMES Branch DAILY GABAPENTIN 2-1 Yes [id number] TAKE 1 [facility] 600 mg 0-21 TABLET BY ity of tablet 00:00: MOUTH THREE Medical TIMES Branch DAILY GABAPENTIN 2-1 Yes [id number] TAKE 1 [facility] 600 mg 0-21 TABLET BY ity of tablet 00:00: MOUTH THREE Medical TIMES Branch DAILY GABAPENTIN 2022-1 Yes [id number] TAKE 1 [facility] 600 mg 0-21 TABLET BY ity of tablet 00:00: MOUTH THREE Medical TIMES Branch DAILY GABAPENTIN 2022-1 Yes [id number] TAKE 1 [facility] 600 mg 0-21 TABLET BY ity of tablet 00:00: MOUTH THREE Medical TIMES Branch DAILY GABAPENTIN 2022-1 Yes [id number] TAKE 1 [facility] 600 mg 0-21 TABLET BY ity of tablet 00:00: MOUTH THREE Medical TIMES Branch DAILY GABAPENTIN 2022-1 Yes [id number] TAKE 1 [facility] 600 mg 0-21 TABLET BY ity of tablet 00:00: MOUTH THREE Medical TIMES Branch DAILY GABAPENTIN 2022-1 Yes [id number] TAKE 1 [facility] 600 mg 0-21 TABLET BY ity of tablet 00:00: MOUTH THREE Medical TIMES Branch DAILY GABAPENTIN 2022-1 Yes [id number] TAKE 1 [facility] 600 mg 0-21 TABLET BY ity of tablet 00:00: MOUTH THREE Medical TIMES Branch DAILY GABAPENTIN 2022-1 Yes [id number] TAKE 1 [facility] 600 mg 0-21 TABLET BY ity of tablet 00:00: MOUTH [place] 00 THREE Medical TIMES Branch DAILY GABAPENTIN 2021-11- No [id number] TAKE 1 [facility] 600 mg 0-21 11-17 TABLET BY ity of tablet 00:00: 00:00 MOUTH [place] 00 :00 THREE Medical TIMES Branch DAILY HYDROcodone 2021-11 [...] Indication s: chronic pain HYDRALAZINE 2021-11 Yes [id number] TAKE 1 [facility] 100 mg 0-05 TABLET BY ity of tablet 00:00: MOUTH THREE Medical TIMES Branch DAILY HYDRALAZINE 2021-11 Yes [id number] TAKE 1 [facility] 100 mg 0-05 TABLET BY ity of tablet 00:00: MOUTH THREE Medical TIMES Branch DAILY HYDRALAZINE 2021-11 Yes [id number] TAKE 1 [facility] 100 mg 0-05 TABLET BY ity of tablet 00:00: MOUTH THREE Medical TIMES Branch DAILY HYDRALAZINE 2021-11 Yes [id number] TAKE 1 [facility] 100 mg 0-05 TABLET BY ity of tablet 00:00: MOUTH THREE Medical TIMES Branch DAILY HYDRALAZINE 2021-11 Yes [id number] TAKE 1 [facility] 100 mg 0-05 TABLET BY ity of tablet 00:00: MOUTH THREE Medical TIMES Branch DAILY HYDRALAZINE 2021-11 Yes [id number] TAKE 1 [facility] 100 mg 0-05 TABLET BY ity of tablet 00:00: MOUTH THREE Medical TIMES Branch DAILY HYDRALAZINE 2021-11 Yes [id number] TAKE 1 [facility] 100 mg 0-05 TABLET BY ity of tablet 00:00: MOUTH THREE Medical TIMES Branch DAILY HYDRALAZINE 2021-11 Yes [id number] TAKE 1 [facility] 100 mg 0-05 TABLET BY ity of tablet 00:00: MOUTH THREE Medical TIMES Branch DAILY HYDRALAZINE 2021- Yes [id number] TAKE 1 [facility] 100 mg 0-05 TABLET BY ity of tablet 00:00: MOUTH [place] 00 THREE Medical TIMES Branch DAILY HYDRALAZINE 2021- Yes [id number] TAKE 1 [facility] 100 mg 0-05 TABLET BY ity of tablet 00:00: MOUTH [place] 00 THREE Medical TIMES Branch DAILY HYDRALAZINE 2021- Yes [id number] TAKE 1 [facility] 100 mg 0-05 TABLET BY ity of tablet 00:00: MOUTH [place] 00 THREE Medical TIMES Branch DAILY HYDRALAZINE 2021-11 202- No [id number] TAKE 1 [facility] 100 mg 0-05 11-03 TABLET BY ity of tablet 00:00: 00:00 MOUTH [place] 00 :00 THREE Medical TIMES Branch DAILY NITROGLYCER Yes PLACE 1 Uni vers IN 0.4 mg 9-26 TABLET ity of sublingual 00:00: UNDER THE [place] tablet 00 TONGUE Medical EVERY 5 Branch MINUTES NEEDED FOR CHEST PAIN. INSULIN Yes USE TWICE Unive rs SYRINGE-NEE 9-26 DAILY WITH it y of DLE U-100 1 00:00: MEALS [place] mL 31 gauge 00 Medical x 5/16 Syrg Branch GABAPENTIN Yes [id number] TAKE 1 [facility] 600 mg 9-26 TABLET BY ity of tablet 00:00: MOUTH [place] 00 THREE Medical TIMES Branch DAILY NITROGLYCER Yes PLACE 1 Uni vers IN 0.4 mg 9-26 TABLET ity of sublingual 00:00: UNDER THE [place] tablet 00 TONGUE Medical EVERY 5 Branch MINUTES NEEDED FOR CHEST PAIN. INSULIN Yes USE TWICE Unive rs SYRINGE-NEE 9-26 DAILY WITH it y of DLE U-100 1 00:00: MEALS [place] mL 31 gauge 00 Medical x 5/16 Syrg Branch GABAPENTIN 2021-0 Yes [id number] TAKE 1 [facility] 600 mg 9-26 TABLET BY ity of tablet 00:00: MOUTH [place] 00 THREE Medical TIMES Branch DAILY NITROGLYCER Yes PLACE 1 Uni vers IN 0.4 mg 9-26 TABLET ity of sublingual 00:00: UNDER THE [place] tablet 00 TONGUE Medical EVERY 5 Branch MINUTES NEEDED FOR CHEST PAIN. INSULIN Yes USE TWICE Unive rs S[place]-NEE 9-26 DAILY WITH it y of DLE U-100 1 00:00: MEALS [place] mL 31 gauge 00 Medical x 5/16 Syrg Branch GABAPENTIN 2-0 Yes [id number] TAKE 1 [facility] 600 mg 9-26 TABLET [...] x 5/16 Syrg Branch GABAPENTIN 2021-0 Yes [id number] TAKE 1 [facility] 600 mg 9-26 TABLET BY ity of tablet 00:00: MOUTH [place] THREE Medical TIMES Branch DAILY NITROGLYCER 2021-0 [...] 00 Medical x 5/16 Syrg Branch amLODIPine 2-0 Yes 5mg Take 5 mg Un ally 5 mg tablet -26 by mouth ity of 00:00: in the morning. Medical Branch INSULIN 2021-0 Yes USE TWICE Unive rs [place]-N[place] 9-26 DAILY WITH it y of DLE U-100 1 00:00: MEALS [place] mL 31 gauge 00 Medical x 5/16 Syrg Branch amLODIPine 2022-0 Yes 5mg Take 5 mg Un ally 5 mg tablet 9-26 by mouth ity of 00:00: in the [place] morning. Medical Branch INSULIN 2022-0 Yes USE TWICE Unive rs SYRINGE-NEE 9-26 DAILY WITH it y of DLE U-100 1 00:00: MEALS [facility] 31 gauge 00 Medical x 5/16 Syrg Branch amLODIPine 2-0 Yes 5mg Take 5 mg Un ally 5 mg tablet 9-26 by mouth ity of 00:00: in the [place] morning. Medical Branch INSULIN 2-0 Yes USE TWICE Unive rs S[place]ING[place]-NEE 9-26 DAILY WITH it y of DLE U-100 1 00:00: MEALS [facility] 31 gauge 00 Medical x 5/16 Syrg Branch amLODIPine 2-0 Yes 5mg Take 5 mg Un ally 5 mg tablet 9-26 by mouth ity of 00:00: in the [place] morning. Medical Branch INSULIN 2-0 Yes USE TWICE Unive rs SYRINGE-NEE 9-26 DAILY WITH it y of DLE U-100 1 00:00: MEALS [facility] 31 gauge 00 Medical x 5/16 Syrg Branch amLODIPine 2-0 Yes 5mg Take 5 mg Un ally 5 mg tablet 9-26 by mouth ity of 00:00: in the [place] morning. Medical Branch INSULIN 2022-0 Yes USE TWICE Unive rs SYRINGE-NEE 9-26 DAILY WITH it y of DLE U-100 1 00:00: MEALS [facility] 31 gauge 00 Medical x 5/16 Syrg [...] the [place] morning. Medical Branch INSULIN 2-0 Yes USE TWICE Unive rs SYRINGE-NEE 9-26 DAILY WITH it y of DLE U-100 1 00:00: MEALS [place] mL 31 gauge 00 Medical x 5/16 Syrg Branch amLODIPine 2-0 Yes 5mg Take 5 mg Un ally [...] by mouth ity of 00:00: in the [place] [address] morning. Medical Branch NITROGLYCER 2021-0 2021- No PLACE 1 Un ally IN 0.4 mg 9-26 10-24 TABLET ity of sublingual 00:00: 00:00 [facility]ER THE [place] tablet 00 :00 TONGUE Medical EVERY 5 Branch MINUTES NEEDED FOR CHEST PAIN. GABAPENTIN 2021-0 2021- No [id number] TAKE 1 [facility] 600 mg 9-26 10-21 TABLET BY ity of tablet 00:00: 00:00 [facility] 00 :00 THREE Medical TIMES Branch DAILY COLCHICINE 2021-0 Yes [id number] .6mg TAKE 1 U nivers 0.6 mg 9-19 TABLET BY ity of tablet 00:00: [facility] DAILY Medical Branch COLCHICINE 2021-0 Yes [id number] .6mg TAKE 1 U nivers 0.6 mg 9-19 TABLET BY ity of tablet 00:00: [facility] DAILY Medical Branch COLCHICINE 2021-0 Yes [id number] .6mg TAKE 1 U nivers 0.6 mg 9-19 TABLET BY ity of tablet 00:00: [facility] DAILY Medical Branch COLCHICINE 2021-0 Yes [id number] .6mg TAKE 1 U nivers 0.6 mg 9-19 TABLET BY ity of tablet 00:00: [facility] DAILY Medical Branch COLCHICINE 2021-0 Yes [id number] .6mg TAKE 1 U nivers 0.6 mg 9-19 TABLET BY ity of tablet 00:00: [facility] DAILY Medical Branch COLCHICINE 2021-0 Yes [id number] .6mg TAKE 1 U nivers 0.6 mg 9-19 TABLET BY ity of tablet 00:00: [facility] DAILY Medical Branch COLCHICINE 2-0 Yes [id number] .6mg TAKE 1 U nivers 0.6 mg 9-19 TABLET BY ity of tablet 00:00: [facility] DAILY Medical Branch COLCHICINE 2-0 Yes [id number] .6mg TAKE 1 U nivers 0.6 mg 9-19 TABLET BY ity of tablet 00:00: [facility] DAILY Medical Branch COLCHICINE 2-0 Yes [id number] .6mg TAKE 1 U nivers 0.6 mg 9-19 TABLET BY ity of tablet 00:00: [facility] DAILY Medical Branch COLCHICINE 2-0 Yes [id number] .6mg TAKE 1 U nivers 0.6 mg 9-19 TABLET BY ity of tablet 00:00: MOUTH [place] DAILY Medical Branch COLCHICINE 2022-0 Yes [id number] .6mg TAKE 1 U nivers 0.6 mg 9-19 TABLET BY ity of tablet 00:00: MOUTH [place] DAILY Medical Branch COLCHICINE 2022-0 Yes [id number] .6mg TAKE 1 U nivers 0.6 mg 9-19 TABLET BY ity of tablet 00:00: MOUTH [place] DAILY Medical Branch COLCHICINE 2022-0 Yes [id number] .6mg TAKE 1 U nivers 0.6 mg 9-19 TABLET BY ity of tablet 00:00: MOUTH [place] DAILY Medical Branch COLCHICINE 2022-0 Yes [id number] .6mg TAKE 1 U nivers 0.6 mg 9-19 TABLET BY ity of tablet 00:00: MOUTH [place] DAILY Medical Branch COLCHICINE 2022-0 Yes [id number] .6mg TAKE 1 U nivers 0.6 mg 9-19 TABLET BY ity of tablet 00:00: [facility] DAILY Medical Branch COLCHICINE 2022-0 Yes [id number] .6mg TAKE 1 U nivers 0.6 mg 9-19 TABLET BY ity of tablet 00:00: [facility] DAILY Medical Branch COLCHICINE 2022-0 Yes [id number] .6mg TAKE 1 U nivers 0.6 mg 9-19 TABLET BY ity of tablet 00:00: [facility] DAILY Medical Branch COLCHICINE 2022-0 Yes [id number] .6mg TAKE 1 U nivers 0.6 mg 9-19 TABLET BY ity of tablet 00:00: [facility] DAILY Medical Branch COLCHICINE 2022-0 Yes [id number] .6mg TAKE 1 U nivers 0.6 mg 9-19 TABLET BY ity of tablet 00:00: [facility] DAILY Medical Branch COLCHICINE 2022-0 Yes [id number] .6mg TAKE 1 U nivers 0.6 mg 9-19 TABLET BY ity of tablet 00:00: MOUTH [place] DAILY Medical Branch COLCHICINE 2022-0 Yes [id number] .6mg TAKE 1 U nivers 0.6 mg 9-19 TABLET BY ity of tablet 00:00: MOUTH [place] DAILY Medical Branch COLCHICINE 2022-0 Yes [id number] .6mg TAKE 1 U nivers 0.6 mg 9-19 TABLET BY ity of tablet 00:00: MOUTH [place] 00 DAILY Medical Branch COLCHICINE 2021-0 Yes [id number] .6mg TAKE 1 U nivers 0.6 mg 9-19 TABLET BY ity of tablet 00:00: MOUTH [place] DAILY Medical Branch COLCHICINE 2021-0 Yes [id number] .6mg TAKE 1 U nivers 0.6 mg 9-19 TABLET BY ity of tablet 00:00: [facility] DAILY Medical Branch COLCHICINE 2021-0 Yes [id number] .6mg TAKE 1 U nivers 0.6 mg 9-19 TABLET BY ity of tablet 00:00: [facility] 00 DAILY Medical Branch COLCHICINE 2021-0 Yes [id number] .6mg TAKE 1 U nivers 0.6 mg 9-19 TABLET BY ity of tablet 00:00: [facility] DAILY Medical Branch COLCHICINE 2021-0 Yes [id number] .6mg TAKE 1 U nivers 0.6 mg 9-19 TABLET BY ity of tablet 00:00: [facility] DAILY Medical Branch COLCHICINE 2021-0 Yes [id number] .6mg TAKE 1 U nivers 0.6 mg 9-19 TABLET BY ity of tablet 00:00: [facility] 00 DAILY Medical Branch COLCHICINE 2021-0 Yes [id number] .6mg TAKE 1 U nivers 0.6 mg 9-19 TABLET BY ity of tablet 00:00: [facility] 00 DAILY Medical Branch COLCHICINE 2021-0 Yes [id number] .6mg TAKE 1 U nivers 0.6 mg 9-19 TABLET BY ity of tablet 00:00: [facility] DAILY Medical Branch COLCHICINE 2021-0 Yes [id number] .6mg TAKE 1 U nivers 0.6 mg 9-19 TABLET BY ity of tablet 00:00: [facility] DAILY Medical Branch COLCHICINE 2021-0 2023- No [id number] .6mg TAKE 1 Univers 0.6 mg 9-19 -18 TABLET BY ity of tablet 00:00: 00:00 [facility] 00 :00 DAILY Medical Branch HYDROcodone 2021-0 Yes 2745 1{tbl} Take 1 Un ally -acetaminop 9-08 tablet by ity of hen 7.5-325 00:00: mouth [place] mg per 00 every 6 Medical tablet (six) Branch hours as needed for Pain. Indication s: chronic pain HYDROcodone 2022-0 Yes 2745 1{tbl} Take 1 [...] for Pain. Indication s: chronic pain HYDROcodone 2- No 2745 1{tbl} Take 1 U nivers -acetaminop 9-08 10-06 tablet by it y of hen 7.5-325 00:00: 00:00 [place] mg per 00 :00 every 6 Medical tablet (six) Branch hours as needed for Pain. Indication s: chronic pain albuterol Yes albuterol [place] [facility] (PROVENTIL) 9-07 sulfate [facility] (2.5 mg/3 12:00: 2.5 mg/3 of mL) 0.083% 32 mL (0.083 Medi patsy nebulizer %) e solution solution for nebulizati on metoprolol Yes 100mg Take 100 [facility] (TOPROL-XL) 9-07 mg by [place] 100 MG XL 12:00: mouth. of tablet 32 Medicin e albuterol Yes albuterol [place] [facility] 108 (90 07-08 sulfate [facility] base) 12:00: HFA 90 of mcg/act 32 mcg/actuat Medici n inhaler ion e aerosol inhaler Mesalamine Yes mesalamine [facility] 0.375 g 07-08 ER 0.375 [place] CP24 12:00: gram of 32 capsule,ex Medicin [...] TWICE DAILY WITH MEALS cyclobenzap Yes cyclobenza [facility] rine 07-08 [place] 10 [facility] (FLEXERIL) 12:00: mg tablet of 10 MG 32 TAKE 1 Medicin tablet TABLET BY e MOUTH EVERY NIGHT AT BEDTIME NEEDED FOR MUSCLE SPASM OR EAR PAIN clonidine Yes clonidine [place] [facility] (CATAPRESS) 07-08 HCl 0.2 mg Co llege 0.2 MG 12:00: tablet of tablet 32 TAKE 1 Medicin TABLET BY e MOUTH THREE TIMES DAILY atorvastati Yes atorvastat [facility] n (LIPITOR) 07-08 in 20 mg [facility] 20 MG 12:00: tablet of tablet 32 TAKE 1 Medicin TABLET BY e MOUTH EVERY DAY amlodipine Yes 10mg Take 10 mg [facility] (NORVASC) 07-08 by mouth. [facility] ge 10 MG 12:00: of tablet 32 Medicin e alprazolam Yes 2mg Take 2 mg [facility] (XANAX) 07-08 by mouth. College 0.25 MG 12:00: of tablet 32 Medicin e allopurinol Yes 100mg Take 100 [facility] (ZYLOPRIM) 07-08 mg by [place] 100 MG 12:00: mouth. of tablet 32 Medicin e Fluticasone Yes Trelegy [place] [facility] -Umeclidin- 07-08 Ellipta [facility] Vilant 12:00: 100 of (TRELEGY 32 mcg-62.5 Medicin ELLIPTA) mcg-25 mcg e 100-62.5-25 powder for MCG/INH inhalation AEPB INHALE 1 PUFF BY MOUTH EVERY DAY albuterol Yes albuterol [place] [facility] (PROVENTIL) 07-08 sulfate [facility] ge (2.5 mg/3 12:00: 2.5 mg/3 of mL) 0.083% 32 mL (0.083 Medi patsy nebulizer %) e solution solution for nebulizati on metoprolol Yes 100mg Take 100 [facility] (TOPROL-XL) 07-08 mg by [place] 100 MG XL 12:00: mouth. of tablet 32 Medicin e albuterol Yes albuterol [place] [facility] 108 (90 07-08 sulfate [employer] base) 12:00: HFA 90 of mcg/act 32 mcg/actuat Medici n inhaler ion e aerosol inhaler Mesalamine Yes mesalamine [facility] [place] 0.375 g 07-08 ER 0.375 [place] CP24 12:00: gram of 32 capsule,ex Medicin tended e release 24 hr hydrochloro Yes 25mg Take [address] [facility] thiazide 07-08 by mouth. Colleg e (HYDRODIURI 12:00: of L) 25 MG 32 Medicin tablet e diclofenac Yes diclofenac [facility] (VOLTAREN) 07-08 sodium 75 [facility] 75 MG EC 12:00: mg of tablet 32 tablet,del Medicin ayed e release TAKE 1 TABLET BY MOUTH TWICE DAILY WITH MEALS cyclobenzap Yes cyclobenza [place] rine 07-08 [place] 10 [place] (FLEXERIL) 12:00: mg tablet of 10 MG 32 TAKE 1 Medicin tablet TABLET BY e MOUTH EVERY NIGHT AT BEDTIME NEEDED FOR MUSCLE SPASM OR EAR PAIN clonidine Yes clonidine [place] [facility] (CATAPRESS) 07-08 HCl 0.2 mg Co [facility]lege 0.2 MG 12:00: tablet of tablet 32 TAKE 1 Medicin TABLET BY e MOUTH THREE TIMES DAILY atorvastati Yes atorvastat [facility] n (LIPITOR) 07-08 in 20 mg [...] 100 [facility] [place] (ZYLOPRIM) 07-08 mg by [place] 100 MG 12:00: mouth. of tablet 32 Medicin e Fluticasone Yes Trelegy [place] [facility] -Umeclidin- 07-08 Ellipta [facility] 12:00: 100 of (TRELEGY 32 mcg-62.5 Medicin ELLIPTA) mcg-25 mcg e 100-62.5-25 powder for MCG/INH inhalation AEPB INHALE 1 PUFF BY MOUTH EVERY DAY albuterol Yes albuterol [place] [facility] (PROVENTIL) 07-08 sulfate [place] ge (2.5 mg/3 12:00: 2.5 mg/3 of mL) 0.083% 32 mL (0.083 Medi patsy nebulizer %) e solution solution for nebulizati on metoprolol Yes 100mg Take 100 [facility] (TOPROL-XL) 07-08 mg by [place] 100 MG XL 12:00: mouth. of tablet 32 Medicin e albuterol Yes albuterol [place] [facility] 108 (90 07-08 sulfate [place] base) 12:00: HFA 90 of mcg/act 32 mcg/actuat Medici n inhaler ion e aerosol inhaler Mesalamine Yes mesalamine [facility] [place] 0.375 g 07-08 ER 0.375 [place] CP24 12:00: gram of 32 capsule,ex Medicin [...] TWICE DAILY WITH MEALS cyclobenzap Yes cyclobenza [facility] rine 07-08 [place] 10 [facility] (FLEXERIL) 12:00: mg tablet of 10 MG 32 TAKE 1 Medicin tablet TABLET BY e MOUTH EVERY NIGHT AT BEDTIME NEEDED FOR MUSCLE SPASM OR EAR PAIN clonidine Yes clonidine [place] [facility] (CATAPRESS) 07-08 HCl 0.2 mg Co [facility] 0.2 MG 12:00: tablet of tablet 32 TAKE 1 Medicin TABLET BY e MOUTH THREE TIMES DAILY atorvastati Yes atorvastat [facility] n (LIPITOR) 07-08 in 20 mg [...] 100 [place] [facility] (ZYLOPRIM) 07-08 mg by [place] 100 MG 12:00: mouth. of tablet 32 Medicin e Fluticasone Yes Trelegy [place] [facility] -Umeclidin- 07-08 Ellipta [facility] 12:00: 100 of (TRELEGY 32 mcg-62.5 Medicin ELLIPTA) mcg-25 mcg e 100-62.5-25 powder for MCG/INH inhalation AEPB INHALE 1 PUFF BY MOUTH EVERY DAY HYDRALAZINE 0 Yes [id number] TAKE 1 [facility] 100 mg 9-06 TABLET BY ity of tablet 00:00: MOUTH [address] Medical TIMES Branch DAILY HYDRALAZINE 0 Yes [id number] TAKE 1 [facility] 100 mg 9-06 TABLET BY ity of tablet 00:00: MOUTH [place] [id number] THREE Medical TIMES Branch DAILY HYDRALAZINE 0 Yes [id number] TAKE 1 [facility] 100 mg 9-06 TABLET BY ity of tablet 00:00: MOUTH [address] [facility] TIMES Branch DAILY HYDRALAZINE Yes [id number] TAKE 1 [facility] 100 mg 9-06 TABLET BY ity of tablet 00:00: MOUTH [place] 00 THREE Medical TIMES Branch DAILY HYDRALAZINE 2022-0 Yes [id number] TAKE 1 [facility] 100 mg 9-06 TABLET BY ity of tablet 00:00: MOUTH [place] 00 THREE Medical TIMES Branch DAILY HYDRALAZINE 2-0 Yes [id number] TAKE 1 [facility] 100 mg 9-06 TABLET BY ity of tablet 00:00: MOUTH [place] 00 THREE Medical TIMES Branch DAILY HYDRALAZINE 2022-0 2022- No [id number] TAKE 1 [facility] 100 mg 9-06 10-05 TABLET BY ity of tablet 00:00: 00:00 MOUTH [place] 00 :00 THREE Medical TIMES Branch DAILY GABAPENTIN 2-0 Yes [id number] TAKE 1 [facility] 600 mg 8-31 TABLET BY ity of tablet 00:00: MOUTH [place] 00 THREE Medical TIMES Branch DAILY GABAPENTIN 2-0 Yes [id number] TAKE 1 [facility] 600 mg 8-31 TABLET BY ity of tablet 00:00: MOUTH [place] 00 THREE Medical TIMES Branch DAILY GABAPENTIN 2022-0 Yes [id number] TAKE 1 [facility] 600 mg 8-31 TABLET BY ity of tablet 00:00: MOUTH [place] 00 THREE Medical TIMES Branch DAILY GABAPENTIN 2022-0 Yes [id number] TAKE 1 [facility] 600 mg 8-31 TABLET BY ity of tablet 00:00: MOUTH [place] 00 THREE Medical TIMES Branch DAILY GABAPENTIN 2022-0 2- No [id number] TAKE 1 [facility] 600 mg 8-31 09-26 [...] tablet 00 TWICE Medical DAILY Branch metoprolol 2021- Yes [id number] TAKE 1 [facility] (LOPRESSOR) 8-22 TABLET BY [facility] 100 MG 00:00: MOUTH of tablet 00 TWICE Medicin DAILY e metoprolol 2021-0 Yes [id number] TAKE [address] [facility] (LOPRESSOR) 8-22 TABLET BY [facility] 100 MG 00:00: MOUTH of tablet 00 TWICE Medicin DAILY e metoprolol Yes [id number] TAKE 1 [facility] (LOPRESSOR) 8-22 TABLET BY Col [facility] 100 MG 00:00: MOUTH of tablet 00 TWICE Medicin DAILY e METOPROLOL 2021- No TAKE 1 [facility] ers TARTRATE 8-22 11-03 TABLET BY ity o f 100 mg 00:00: 00:00 MOUTH [place] tablet 00 :00 TWICE Medical DAILY Branch BD PEN 0 Yes [id number] USE [facility] NEEDLE DEVORAH 8-17 DIRECTED [facility] 2ND GEN 32G 00:00: EVERY DAY o f X 4 MM MISC 00 Medicin e alprazolam 0 Yes [id number] TAKE 1 [facility] (XANAX) 2 8-17 TABLET BY Colle ge MG tablet 00:00: MOUTH of 00 THREE Medicin TIMES e DAILY NEEDED FOR ANXIETY BD PEN 2021-0 Yes [id number] USE [facility] NEEDLE DEVORAH 8-17 DIRECTED [facility] 2ND GEN 32G 00:00: EVERY DAY o f X 4 MM MISC 00 Medicin e alprazolam 2021-0 Yes [id number] TAKE [address] [facility] (XANAX) 2 8-17 TABLET BY Colle ge MG tablet 00:00: MOUTH of 00 THREE Medicin TIMES e DAILY NEEDED FOR ANXIETY BD PEN 2021-0 Yes [id number] USE [facility] NEEDLE DEVORAH 8-17 DIRECTED [facility] 2ND GEN 32G 00:00: EVERY DAY o f X 4 MM MISC 00 Medicin e alprazolam 2021-0 Yes [id number] TAKE 1 [facility] (XANAX) 2 8-17 TABLET BY Colle ge MG tablet 00:00: MOUTH of 00 THREE Medicin TIMES e DAILY NEEDED FOR ANXIETY albuterol Yes albuterol [place] [facility] (PROVENTIL) 8-16 sulfate Colle ge (2.5 mg/3 08:03: 2.5 mg/3 of mL) 0.083% 35 mL (0.083 Medi patsy nebulizer %) e solution solution for nebulizati on Insulin Yes Inject [facility] Aspart Prot 8-16 into the [facility] & Aspart 08:03: skin. of (70-30) 100 35 Medicin UNIT/ML e SUPN mirtazapine Yes 15mg Take [address] [facility] (REMERON) 8-16 by mouth. Colle ge 15 MG 08:03: of tablet 35 Medicin e metoprolol Yes 100mg Take 100 [facility] (TOPROL-XL) 8-16 mg by [place] 100 MG XL 08:03: mouth. of tablet 35 Medicin e pantoprazol Yes 20mg Take [address] [facility] e 8-16 by mouth [place] (PROTONIX) 08:00: daily. of 20 MG 33 [...] or -acetaminop 8-09 TABLET BY [facility] (NORCO) 00:00: MOUTH of 7.5-325 MG 00 EVERY 6 Medici n per tablet HOURS e NEEDED FOR PAIN OR CHRONIC PAIN LISINOPRIL Yes [id number] TAKE 1/2 [facility] 40 mg 8-08 TABLET BY ity of tablet 00:00: MOUTH [place] 00 TWICE Medical DAILY Branch HYDROcodone Yes [id number] 1{tbl} Take 1 [facility] -acetaminop 8-08 tablet by ity of hen 7.5-325 00:00: mouth [place] mg per 00 every 6 Medical tablet (six) Branch hours as needed for Pain. Indication s: chronic pain HYDROcodone 2022-0 Yes [id number] 1{tbl} Take 1 [facility] -acetaminop 8-08 tablet by ity of hen 7.5-325 00:00: mouth [place] mg per 00 every 6 Medical tablet (six) Branch hours as needed for Pain. Indication s: chronic pain LISINOPRIL 2022-0 Yes [id number] TAKE 1/2 [facility] 40 mg 8-08 TABLET BY ity of tablet 00:00: MOUTH [place] 00 TWICE Medical DAILY Branch HYDROcodone 2022-0 Yes [id number] 1{tbl} Take 1 [facility] -acetaminop 8-08 tablet by ity of hen 7.5-325 00:00: mouth [place] mg per 00 every 6 Medical tablet (six) Branch hours as needed for Pain. Indication s: chronic pain LISINOPRIL 2-0 Yes [id number] TAKE 1/2 [facility] 40 mg 8-08 TABLET BY ity of tablet 00:00: MOUTH [place] 00 TWICE Medical DAILY Branch HYDROcodone 2022-0 Yes [id number] 1{tbl} Take 1 [facility] -acetaminop 8-08 tablet by ity of hen 7.5-325 00:00: mouth [place] mg per 00 every 6 Medical tablet (six) Branch hours as needed for Pain. Indication s: chronic pain LISINOPRIL 2022-0 Yes [id number] TAKE 1/2 [facility] 40 mg 8-08 TABLET BY ity of tablet 00:00: MOUTH [place] 00 TWICE Medical DAILY Branch LISINOPRIL 2022-0 Yes [id number] TAKE 1/2 [facility] 40 mg 8-08 TABLET BY ity of tablet 00:00: MOUTH [place] 00 TWICE Medical DAILY Branch LISINOPRIL 2022-0 Yes [id number] TAKE 1/2 [facility] 40 mg 8-08 TABLET BY ity of tablet 00:00: MOUTH [place] 00 TWICE Medical DAILY Branch LISINOPRIL 2022-0 Yes [id number] TAKE 1/2 [facility] 40 mg 8-08 TABLET BY ity of tablet 00:00: MOUTH [place] 00 TWICE Medical DAILY Branch LISINOPRIL 2022-0 Yes [id number] TAKE 1/2 [facility] 40 mg 8-08 TABLET BY ity of tablet 00:00: MOUTH [place] 00 TWICE Medical DAILY Branch LISINOPRIL 2022-0 Yes [id number] TAKE 1/2 [facility] 40 mg 8-08 TABLET BY ity of tablet 00:00: MOUTH TWICE Medical DAILY Branch LISINOPRIL 2022-0 Yes [id number] TAKE 1/2 [facility] 40 mg 8-08 TABLET BY ity of tablet 00:00: MOUTH TWICE Medical DAILY Branch LISINOPRIL 2022-0 Yes [id number] TAKE 1/2 [facility] 40 mg 8-08 TABLET BY ity of tablet 00:00: MOUTH TWICE Medical DAILY Branch LISINOPRIL 2022-0 Yes [id number] TAKE 1/2 [facility] 40 mg 8-08 TABLET BY ity of tablet 00:00: MOUTH TWICE Medical DAILY Branch LISINOPRIL 2022-0 Yes [id number] TAKE 1/2 [facility] 40 mg 8-08 TABLET BY ity of tablet 00:00: MOUTH TWICE Medical DAILY Branch LISINOPRIL 2022-0 Yes [id number] TAKE 1/2 [facility] 40 mg 8-08 TABLET BY ity of tablet 00:00: MOUTH TWICE Medical DAILY Branch LISINOPRIL 2022-0 Yes [id number] TAKE 1/2 [facility] 40 mg 8-08 TABLET BY ity of tablet 00:00: MOUTH TWICE Medical DAILY Branch LISINOPRIL 2022-0 Yes [id number] TAKE 1/2 [facility] 40 mg 8-08 TABLET BY ity of tablet 00:00: MOUTH TWICE Medical DAILY Branch LISINOPRIL 2022-0 Yes [id number] TAKE 1/2 [facility] 40 mg 8-08 TABLET BY ity of tablet 00:00: MOUTH TWICE Medical DAILY Branch LISINOPRIL 2022-0 Yes [id number] TAKE 1/2 [facility] 40 mg 8-08 TABLET BY ity of tablet 00:00: MOUTH TWICE Medical DAILY Branch LISINOPRIL 2022-0 Yes [id number] TAKE 1/2 [facility] 40 mg 8-08 TABLET BY ity of tablet 00:00: MOUTH 00 TWICE Medical DAILY Branch LISINOPRIL 2022-0 Yes [id number] TAKE 1/2 [facility] 40 mg 8-08 TABLET BY ity of tablet 00:00: MOUTH 00 TWICE Medical DAILY Branch lisinopril 2022-0 Yes TAKE 1/2 [place] [facility] (PRINIVIL, 8-08 TABLET BY [facility]) 40 00:00: MOUTH of MG tablet 00 TWICE Medicin DAILY e hydrALAZINE Yes TAKE 1 [facility] (APRESOLINE 8-08 TABLET BY [facility] [employer] [facility] ) 100 MG 00:00: MOUTH of tablet 00 THREE Medicin TIMES e DAILY lisinopril Yes TAKE 1/2 [place] [facility] (PRINIVIL, 8-08 TABLET BY [employer]) 40 00:00: MOUTH of MG tablet 00 TWICE Medicin DAILY e hydrALAZINE Yes TAKE 1 [facility] (APRESOLINE 8-08 TABLET BY [facility] ) 100 MG 00:00: MOUTH of tablet 00 THREE Medicin TIMES e DAILY lisinopril Yes TAKE 1/2 [place] [facility] (PRINIVIL, 8-08 TABLET BY [employer]) 40 00:00: MOUTH of MG tablet 00 TWICE Medicin DAILY e hydrALAZINE Yes TAKE 1 [facility] (APRESOLINE 8-08 TABLET BY [facility] [employer] [facility] [facility] ) 100 MG 00:00: MOUTH of tablet 00 THREE Medicin TIMES e DAILY lisinopril Yes TAKE 1/2 [place] [facility] (PRINIVIL, 8-08 TABLET BY [employer]) 40 00:00: MOUTH of MG tablet 00 TWICE Medicin DAILY e LISINOPRIL 2021- No [id number] TAKE 1/2 [facility] 40 mg 06-08 TABLET BY ity of tablet 00:00: 00:00 MOUTH [place] 00 :00 TWICE Medical DAILY Branch HYDROcodone 2021- No [id number] 1{tbl} Take 1 [facility] n[facility] -acetaminop 06-08 tablet by it y of hen 7.5-325 00:00: 00:00 [place] mg per 00 :00 every 6 Medical tablet (six) Branch hours as needed for Pain. Indication s: chronic pain HUMULIN Yes ADMINISTER [facility] 70/30 06-04 70 UNITS College (70-30) 100 00:00: UNDER THE o f UNIT/ML 00 SKIN EVERY Medici n injection MORNING e THEN ADMINISTER 60 UNITS UNDER THE SKIN EVERY EVENING HUMULIN Yes ADMINISTER [facility] 70/30 06-04 70 UNITS College (70-30) 100 00:00: UNDER THE o f UNIT/ML 00 SKIN EVERY Medici n injection MORNING e THEN ADMINISTER 60 UNITS UNDER THE SKIN EVERY EVENING HUMULIN 2021-0 Yes ADMINISTER [facility] 70/30 8-04 70 UNITS College (70-30) 100 00:00: UNDER THE o f UNIT/ML 00 SKIN EVERY Medici n injection MORNING e THEN ADMINISTER 60 UNITS UNDER THE SKIN EVERY EVENING HUMULIN 2021-0 Yes ADMINISTER [facility] 70/30 8-04 70 UNITS College (70-30) 100 00:00: UNDER THE o f UNIT/ML 00 SKIN EVERY Medici n injection MORNING e THEN ADMINISTER 60 UNITS UNDER THE SKIN EVERY EVENING HUMULIN 2021-0 Yes [id number] ADMINISTER [facility] 70/30 U-100 8-03 70 UNITS ity of INSULIN 100 00:00: [place]ER THE [place] unit/mL 00 SKIN EVERY Medica l (70-30) MORNING Branch suspension THEN ADMINISTER 60 UNITS UNDER THE SKIN EVERY EVENING HUMULIN 2021-0 Yes [id number] ADMINISTER [facility] 70/30 U-100 8-03 70 UNITS ity of INSULIN 100 00:00: UNDER THE [place] unit/mL 00 SKIN EVERY Medica l (70-30) MORNING Branch suspension THEN ADMINISTER 60 UNITS UNDER THE SKIN EVERY EVENING GABAPENTIN 2021-0 Yes [id number] TAKE 1 [facility] 600 mg 8-03 TABLET BY ity of tablet 00:00: MOUTH [place] THREE Medical TIMES Branch DAILY HUMULIN 0 Yes [id number] ADMINISTER [facility] 70/30 U-100 8-03 70 UNITS ity of INSULIN 100 00:00: UNDER THE [place] unit/mL 00 SKIN EVERY Medica l (70-30) MORNING Branch suspension THEN ADMINISTER 60 UNITS UNDER THE SKIN EVERY EVENING GABAPENTIN 2021-0 Yes [id number] TAKE 1 [facility] 600 mg 8-03 TABLET BY ity of tablet 00:00: MOUTH [place] THREE Medical TIMES Branch DAILY HUMULIN 2021-0 Yes [id number] ADMINISTER [facility] 70/30 U-100 8-03 70 UNITS ity of INSULIN 100 00:00: UNDER THE [place] unit/mL 00 SKIN EVERY Medica l (70-30) MORNING Branch suspension THEN ADMINISTER 60 UNITS UNDER THE SKIN EVERY EVENING GABAPENTIN 2021-0 Yes [id number] TAKE 1 [facility] 600 mg 8-03 TABLET BY ity of tablet 00:00: MOUTH [place] 00 THREE Medical TIMES Branch DAILY HUMULIN 2022-0 Yes [id number] ADMINISTER [facility] 70/30 U-100 8-03 70 UNITS ity of INSULIN 100 00:00: UNDER THE [place] unit/mL 00 SKIN EVERY Medica l (70-30) MORNING Branch suspension THEN ADMINISTER 60 UNITS UNDER THE SKIN EVERY EVENING GABAPENTIN Yes [id number] TAKE 1 [facility] 600 mg 8 TABLET BY ity of tablet 00:00: MOUTH [place] [address] THREE Medical TIMES Branch DAILY HUMULIN Yes [id number] ADMINISTER [facility] 70/30 U-100 8-03 70 UNITS ity of INSULIN 100 00:00: UNDER THE [place] unit/mL 00 SKIN EVERY Medica l (70-30) MORNING Branch suspension THEN ADMINISTER 60 UNITS UNDER THE SKIN EVERY EVENING HUMULIN Yes [id number] ADMINISTER [facility] 70/30 U-100 8-03 70 UNITS ity of INSULIN 100 00:00: UNDER THE [place] unit/mL 00 SKIN EVERY Medica l (70-30) MORNING Branch suspension THEN ADMINISTER 60 UNITS UNDER THE SKIN EVERY EVENING HUMULIN Yes [id number] ADMINISTER [facility] 70/30 U-100 8-03 70 UNITS ity of INSULIN 100 00:00: UNDER THE [place] unit/mL 00 SKIN EVERY Medica l (70-30) MORNING Branch suspension THEN ADMINISTER 60 UNITS UNDER THE SKIN EVERY EVENING HUMULIN Yes [id number] ADMINISTER [facility] 70/30 U-100 8-03 70 UNITS ity of INSULIN 100 00:00: UNDER THE [place] unit/mL 00 SKIN EVERY Medica l (70-30) MORNING Branch suspension THEN ADMINISTER 60 UNITS UNDER THE SKIN EVERY EVENING HUMULIN Yes [id number] ADMINISTER [facility] 70/30 U-100 8-03 70 UNITS ity of INSULIN 100 00:00: UNDER THE [place] unit/mL 00 SKIN EVERY Medica l (70-30) MORNING Branch suspension THEN ADMINISTER 60 UNITS UNDER THE SKIN EVERY EVENING HUMULIN Yes [id number] ADMINISTER [facility] 70/30 U-100 8-03 70 UNITS ity of INSULIN 100 00:00: UNDER THE [place] unit/mL 00 SKIN EVERY Medica l (70-30) MORNING Branch suspension THEN ADMINISTER 60 UNITS UNDER THE SKIN EVERY EVENING HUMULIN Yes [id number] ADMINISTER [facility] 70/30 U-100 8-03 70 UNITS ity of INSULIN 100 00:00: UNDER THE [place] unit/mL 00 SKIN EVERY Medica l (70-30) MORNING Branch suspension THEN ADMINISTER 60 UNITS UNDER THE SKIN EVERY EVENING HUMULIN Yes [id number] ADMINISTER [facility] 70/30 U-100 8-03 70 UNITS ity of INSULIN 100 00:00: UNDER THE [place] unit/mL 00 SKIN EVERY Medica l (70-30) MORNING Branch suspension THEN ADMINISTER 60 UNITS UNDER THE SKIN EVERY EVENING HUMULIN Yes [id number] ADMINISTER [facility] 70/30 U-100 8-03 70 UNITS ity of INSULIN 100 00:00: UNDER THE [place] unit/mL 00 SKIN EVERY Medica l (70-30) MORNING Branch suspension THEN ADMINISTER 60 UNITS UNDER THE SKIN EVERY EVENING HUMULIN Yes [id number] ADMINISTER [facility] 70/30 U-100 8- 70 UNITS ity of INSULIN 100 00:00: UNDER THE [place] unit/mL 00 SKIN EVERY Medica l (70-30) MORNING Branch suspension THEN ADMINISTER 60 UNITS UNDER THE SKIN EVERY EVENING HUMULIN Yes [id number] ADMINISTER [facility] 70/30 U-100 8- 70 UNITS ity of INSULIN 100 00:00: UNDER THE [place] unit/mL 00 SKIN EVERY Medica l (70-30) MORNING Branch suspension THEN ADMINISTER 60 UNITS UNDER THE SKIN EVERY EVENING HUMULIN Yes [id number] ADMINISTER [facility] 70/30 U-100 8- 70 UNITS ity of INSULIN 100 00:00: UNDER THE [place] unit/mL 00 SKIN EVERY Medica l (70-30) MORNING Branch suspension THEN ADMINISTER 60 UNITS UNDER THE SKIN EVERY EVENING HUMULIN Yes [id number] ADMINISTER [facility] 70/30 U-100 8-03 70 UNITS ity of INSULIN 100 00:00: UNDER THE [place] unit/mL 00 SKIN EVERY Medica l (70-30) MORNING Branch suspension THEN ADMINISTER 60 UNITS UNDER THE SKIN EVERY EVENING HUMULIN Yes [id number] ADMINISTER [facility] 70/30 U-100 8-03 70 UNITS ity of INSULIN 100 00:00: UNDER THE [place] unit/mL 00 SKIN EVERY Medica l (70-30) MORNING Branch suspension THEN ADMINISTER 60 UNITS UNDER THE SKIN EVERY EVENING HUMULIN Yes [id number] ADMINISTER [facility] 70/30 U-100 8-03 70 UNITS ity of INSULIN 100 00:00: UNDER THE [place] unit/mL 00 SKIN EVERY Medica l (70-30) MORNING Branch suspension THEN ADMINISTER 60 UNITS UNDER THE SKIN EVERY EVENING HUMULIN Yes [id number] ADMINISTER [facility] 70/30 U-100 8-03 70 UNITS ity of INSULIN 100 00:00: UNDER THE [place] unit/mL 00 SKIN EVERY Medica l (70-30) MORNING Branch suspension THEN ADMINISTER 60 UNITS UNDER THE SKIN EVERY EVENING HUMULIN Yes [id number] ADMINISTER [facility] 70/30 U-100 8-03 70 UNITS ity of INSULIN 100 00:00: UNDER THE [place] unit/mL 00 SKIN EVERY Medica l (70-30) MORNING Branch suspension THEN ADMINISTER 60 UNITS UNDER THE SKIN EVERY EVENING HUMULIN Yes [id number] ADMINISTER [facility] 70/30 U-100 8-03 70 UNITS ity of INSULIN 100 00:00: UNDER THE [place] unit/mL 00 SKIN EVERY Medica l (70-30) MORNING Branch suspension THEN ADMINISTER 60 UNITS UNDER THE SKIN EVERY EVENING HUMULIN Yes [id number] ADMINISTER [facility] 70/30 U-100 8-03 70 UNITS ity of INSULIN 100 00:00: UNDER THE [place] unit/mL 00 SKIN EVERY Medica l (70-30) MORNING Branch suspension THEN ADMINISTER 60 UNITS UNDER THE SKIN EVERY EVENING HUMULIN Yes [id number] ADMINISTER [facility] 70/30 U-100 8-03 70 UNITS ity of INSULIN 100 00:00: UNDER THE [place] unit/mL 00 SKIN EVERY Medica l (70-30) MORNING Branch suspension THEN ADMINISTER 60 UNITS UNDER THE SKIN EVERY EVENING HUMULIN Yes [id number] ADMINISTER [facility] 70/30 U-100 8-03 70 UNITS ity of INSULIN 100 00:00: UNDER THE [place] unit/mL 00 SKIN EVERY Medica l (70-30) MORNING Branch suspension THEN ADMINISTER 60 UNITS UNDER THE SKIN EVERY EVENING HUMULIN Yes [id number] ADMINISTER [facility] 70/30 U-100 8-03 70 UNITS ity of INSULIN 100 00:00: UNDER THE [place] unit/mL 00 SKIN EVERY Medica l (70-30) MORNING Branch suspension THEN ADMINISTER 60 UNITS UNDER THE SKIN EVERY EVENING HUMULIN Yes [id number] ADMINISTER [facility] 70/30 U-100 8-03 70 UNITS ity of INSULIN 100 00:00: UNDER THE [place] unit/mL 00 SKIN EVERY Medica l (70-30) MORNING Branch suspension THEN ADMINISTER 60 UNITS UNDER THE SKIN EVERY EVENING HUMULIN Yes [id number] ADMINISTER [facility] 70/30 U-100 8-03 70 UNITS ity of INSULIN 100 00:00: UNDER THE [place] unit/mL 00 SKIN EVERY Medica l (70-30) MORNING Branch suspension THEN ADMINISTER 60 UNITS UNDER THE SKIN EVERY EVENING HUMULIN Yes [id number] ADMINISTER [facility] 70/30 U-100 8-03 70 UNITS ity of INSULIN 100 00:00: UNDER THE [place] unit/mL 00 SKIN EVERY Medica l (70-30) MORNING Branch suspension THEN ADMINISTER 60 UNITS UNDER THE SKIN EVERY EVENING HUMULIN Yes [id number] ADMINISTER [facility] 70/30 U-100 8- 70 UNITS ity of INSULIN 100 00:00: UNDER THE [place] unit/mL 00 SKIN EVERY Medica l (70-30) MORNING Branch suspension THEN ADMINISTER 60 UNITS UNDER THE SKIN EVERY EVENING HUMULIN Yes [id number] ADMINISTER [facility] 70/30 U-100 8-03 70 UNITS ity of INSULIN 100 00:00: UNDER THE [place] unit/mL 00 SKIN EVERY Medica l (70-30) MORNING Branch suspension THEN ADMINISTER 60 UNITS UNDER THE SKIN EVERY EVENING HUMULIN Yes [id number] ADMINISTER [facility] 70/30 U-100 8-03 70 UNITS ity of INSULIN 100 00:00: UNDER THE [place] unit/mL 00 SKIN EVERY Medica l (70-30) MORNING Branch suspension THEN ADMINISTER 60 UNITS UNDER THE SKIN EVERY EVENING HUMULIN Yes [id number] ADMINISTER [facility] 70/30 U-100 8-03 70 UNITS ity of INSULIN 100 00:00: UNDER THE [place] unit/mL 00 SKIN EVERY Medica l (70-30) MORNING Branch suspension THEN ADMINISTER 60 UNITS UNDER THE SKIN EVERY EVENING HUMULIN Yes [id number] ADMINISTER [facility] 70/30 U-100 8-03 70 UNITS ity of INSULIN 100 00:00: UNDER THE [place] unit/mL 00 SKIN EVERY Medica l (70-30) MORNING Branch suspension THEN ADMINISTER 60 UNITS UNDER THE SKIN EVERY EVENING HUMULIN Yes [id number] ADMINISTER [facility] 70/30 U-100 8 70 UNITS ity of INSULIN 100 00:00: UNDER THE [place] unit/mL 00 SKIN EVERY Medica l (70-30) MORNING Branch suspension THEN ADMINISTER 60 UNITS UNDER THE SKIN EVERY EVENING HUMULIN Yes [id number] ADMINISTER [facility] 70/30 U-100 8- 70 UNITS ity of INSULIN 100 00:00: UNDER THE [place] unit/mL 00 SKIN EVERY Medica l (70-30) MORNING Branch suspension THEN ADMINISTER 60 UNITS UNDER THE SKIN EVERY EVENING HUMULIN Yes [id number] ADMINISTER [facility] 70/30 U-100 8 70 UNITS ity of INSULIN 100 00:00: UNDER THE [place] unit/mL 00 SKIN EVERY Medica l (70-30) MORNING Branch suspension THEN ADMINISTER 60 UNITS UNDER THE SKIN EVERY EVENING HUMULIN Yes [id number] ADMINISTER [facility] 70/30 U-100 06-03 70 UNITS ity of INSULIN 100 00:00: UNDER THE [place] unit/mL 00 SKIN EVERY Medica l (70-30) MORNING Branch suspension THEN ADMINISTER 60 UNITS UNDER THE SKIN EVERY EVENING HUMULIN Yes [id number] ADMINISTER [facility] 70/30 U-100 06-03 70 UNITS ity of INSULIN 100 00:00: UNDER THE [place] unit/mL 00 SKIN EVERY Medica l (70-30) MORNING Branch suspension THEN ADMINISTER 60 UNITS UNDER THE SKIN EVERY EVENING HUMULIN Yes [id number] ADMINISTER [facility] 70/30 U-100 06-03 70 UNITS [...] Medicin TIMES e DAILY GABAPENTIN 2021- No [id number] TAKE 1 [facility] 600 mg 8-03 08-31 TABLET BY ity of tablet 00:00: 00:00 MOUTH [place] 00 :00 THREE Medical TIMES Branch DAILY HYDROCHLORO 2022-0 Yes [id number] 12.5mg TAKE 1 [facility] THIAZIDE 7-18 CAPSULE BY ity o f 12.5 mg 00:00: MOUTH [place] capsule 00 DAILY Medical Branch HYDROCHLORO 2022-0 Yes [id number] 12.5mg TAKE 1 [facility] THIAZIDE 7-18 CAPSULE BY ity o f 12.5 mg 00:00: MOUTH [place] capsule 00 DAILY Medical Branch HYDROCHLORO 2022-0 Yes [id number] 12.5mg TAKE 1 [facility] THIAZIDE 7-18 CAPSULE BY ity o f 12.5 mg 00:00: MOUTH [place] capsule 00 DAILY Medical Branch HYDROCHLORO 2022-0 Yes [id number] 12.5mg TAKE 1 [facility] THIAZIDE 7-18 CAPSULE BY ity o f 12.5 mg 00:00: MOUTH [place] capsule 00 DAILY Medical Branch HYDROCHLORO 2022-0 Yes [id number] 12.5mg TAKE 1 [facility] THIAZIDE 7-18 CAPSULE BY ity o f 12.5 mg 00:00: MOUTH [place] capsule 00 DAILY Medical Branch HYDROCHLORO 2022-0 Yes [id number] 12.5mg TAKE 1 [facility] THIAZIDE 7-18 CAPSULE BY ity o f 12.5 mg 00:00: MOUTH [place] capsule 00 DAILY Medical Branch HYDROCHLORO 2022-0 Yes [id number] 12.5mg TAKE 1 [facility] THIAZIDE 7-18 CAPSULE BY ity o f 12.5 mg 00:00: MOUTH [place] capsule 00 DAILY Medical Branch HYDROCHLORO 2022-0 Yes [id number] 12.5mg TAKE 1 [facility] THIAZIDE 7-18 CAPSULE BY ity o f 12.5 mg 00:00: MOUTH [place] capsule 00 DAILY Medical Branch HYDROCHLORO 2022-0 Yes [id number] 12.5mg TAKE 1 [facility] THIAZIDE 7-18 CAPSULE BY ity o f 12.5 mg 00:00: MOUTH [place] capsule 00 DAILY Medical Branch HYDROCHLORO 2022-0 Yes [id number] 12.5mg TAKE 1 [facility] THIAZIDE 7-18 CAPSULE BY ity o f 12.5 mg 00:00: MOUTH [place] capsule 00 DAILY Medical Branch HYDROCHLORO 2022-0 Yes [id number] 12.5mg TAKE 1 [facility] THIAZIDE 7-18 CAPSULE BY ity o f 12.5 mg 00:00: MOUTH [place] capsule 00 DAILY Medical Branch HYDROCHLORO 2022-0 Yes [id number] 12.5mg TAKE 1 [facility] THIAZIDE 7-18 CAPSULE BY ity o f 12.5 mg 00:00: MOUTH [place] capsule 00 DAILY Medical Branch HYDROCHLORO 2022-0 Yes [id number] 12.5mg TAKE 1 [facility] THIAZIDE 7-18 CAPSULE BY ity o f 12.5 mg 00:00: MOUTH [place] capsule 00 DAILY Medical Branch HYDROCHLORO 2022-0 Yes [id number] 12.5mg TAKE 1 [facility] THIAZIDE 7-18 CAPSULE BY ity o f 12.5 mg 00:00: MOUTH [place] capsule 00 DAILY Medical Branch HYDROCHLORO 2022-0 Yes [id number] 12.5mg TAKE 1 [facility] THIAZIDE 7-18 CAPSULE BY ity o f 12.5 mg 00:00: MOUTH [place] capsule 00 DAILY Medical Branch HYDROCHLORO 2022-0 Yes [id number] 12.5mg TAKE 1 [facility] THIAZIDE 7-18 CAPSULE BY ity o f 12.5 mg 00:00: MOUTH [place] capsule 00 DAILY Medical Branch HYDROCHLORO 2022-0 Yes [id number] 12.5mg TAKE 1 [facility] THIAZIDE 7-18 CAPSULE BY ity o f 12.5 mg 00:00: MOUTH [place] capsule 00 DAILY Medical Branch HYDROCHLORO 2022-0 Yes [id number] 12.5mg TAKE 1 [facility] THIAZIDE 7-18 CAPSULE BY ity o f 12.5 mg 00:00: MOUTH [place] capsule 00 DAILY Medical Branch HYDROCHLORO 2022-0 Yes [id number] 12.5mg TAKE 1 [facility] THIAZIDE 7-18 CAPSULE BY ity o f 12.5 mg 00:00: MOUTH [place] capsule 00 DAILY Medical Branch HYDROCHLORO 2022-0 Yes [id number] 12.5mg TAKE 1 [facility] THIAZIDE 7-18 CAPSULE BY ity o f 12.5 mg 00:00: MOUTH [place] capsule 00 DAILY Medical Branch HYDROCHLORO 2022-0 Yes [id number] 12.5mg TAKE 1 [facility] THIAZIDE 7-18 CAPSULE BY ity o f 12.5 mg 00:00: MOUTH [place] capsule 00 DAILY Medical Branch HYDROCHLORO 2022-0 Yes [id number] 12.5mg TAKE 1 [facility] THIAZIDE 7-18 CAPSULE BY ity o f 12.5 mg 00:00: MOUTH [place] capsule 00 DAILY Medical Branch HYDROCHLORO 2022-0 Yes [id number] 12.5mg TAKE 1 [facility] THIAZIDE 7-18 CAPSULE BY ity o f 12.5 mg 00:00: MOUTH [place] capsule 00 DAILY Medical Branch HYDROCHLORO 2022-0 Yes [id number] 12.5mg TAKE 1 [facility] THIAZIDE 7-18 CAPSULE BY ity o f 12.5 mg 00:00: MOUTH [place] capsule 00 DAILY Medical Branch HYDROCHLORO 2022-0 Yes [id number] 12.5mg TAKE 1 [facility] THIAZIDE 7-18 CAPSULE BY ity o f 12.5 mg 00:00: MOUTH [place] capsule 00 DAILY Medical Branch HYDROCHLORO 2022-0 Yes [id number] 12.5mg TAKE 1 [facility] THIAZIDE 7-18 CAPSULE BY ity o f 12.5 mg 00:00: MOUTH [place] capsule 00 DAILY Medical Branch HYDROCHLORO 2022-0 Yes [id number] 12.5mg TAKE 1 [facility] THIAZIDE 7-18 CAPSULE BY ity o f 12.5 mg 00:00: MOUTH [place] capsule 00 DAILY Medical [facility] HYDROCHLORO 2022-0 Yes [id number] 12.5mg TAKE 1 [facility] THIAZIDE 7-18 CAPSULE BY ity o f 12.5 mg 00:00: MOUTH [place] capsule 00 DAILY [facility] HYDROCHLORO 2022-0 Yes [id number] 12.5mg TAKE 1 [facility] THIAZIDE 7-18 CAPSULE BY ity o f 12.5 mg 00:00: MOUTH [place] capsule 00 DAILY [facility] HYDROCHLORO 2022-0 Yes [id number] 12.5mg TAKE 1 [facility] THIAZIDE 7-18 CAPSULE BY ity o f 12.5 mg 00:00: MOUTH [place] capsule 00 DAILY [facility] HYDROCHLORO 2022-0 Yes [id number] 12.5mg TAKE 1 [facility] THIAZIDE 7-18 CAPSULE BY ity o f 12.5 mg 00:00: MOUTH [place] capsule 00 DAILY [facility] HYDROCHLORO 2022-0 Yes [id number] 12.5mg TAKE 1 [facility] THIAZIDE 7-18 CAPSULE BY ity o f 12.5 mg 00:00: MOUTH [place] capsule 00 DAILY [facility] HYDROCHLORO 2022-0 Yes [id number] 12.5mg TAKE 1 [facility] THIAZIDE 7-18 CAPSULE BY ity o f 12.5 mg 00:00: MOUTH [place] capsule 00 DAILY [facility] HYDROCHLORO 2022-0 Yes [id number] 12.5mg TAKE 1 [facility] THIAZIDE 7-18 CAPSULE BY ity o f 12.5 mg 00:00: MOUTH [place] capsule 00 DAILY [facility] HYDROCHLORO 2022-0 Yes [id number] 12.5mg TAKE 1 [facility] THIAZIDE 7-18 CAPSULE BY ity o f 12.5 mg 00:00: MOUTH [place] capsule 00 DAILY Medical Branch HYDROCHLORO 2021-0 Yes [id number] 12.5mg TAKE 1 [facility] THIAZIDE 7-18 CAPSULE BY ity o f 12.5 mg 00:00: MOUTH [place] capsule 00 DAILY Medical Branch HYDROCHLORO 0 Yes [id number] 12.5mg TAKE 1 [facility] THIAZIDE 7-18 CAPSULE BY ity o f 12.5 mg 00:00: MOUTH [place] capsule 00 DAILY Medical Branch HYDROCHLORO 2021-0 2023- No [id number] 12.5mg TAKE 1 [facility] THIAZIDE 7-18 - CAPSULE BY ity of 12.5 mg 00:00: 00:00 MOUTH [place] capsule 00 :00 DAILY Medical Branch dicyclomine Yes TAKE 1 [...] chronic pain colchicine Yes .6mg Take 0.6 [place] [facility] 0.6 MG 7-11 mg by [facility] tablet 00:00: mouth of 00 daily. Medicin e colchicine 0 Yes .6mg Take 0.6 [place] [facility] 0.6 MG 7-11 mg by [facility] tablet 00:00: mouth of 00 daily. Medicin e colchicine 0 Yes .6mg Take 0.6 [place] [facility] 0.6 MG 7-11 mg by [facility] tablet 00:00: mouth of 00 daily. Medicin e HYDROcodone 2- No [id number] 1{tbl} Take 1 [facility] -acetaminop 7-11 08-08 tablet by it y of hen 7.5-325 00:[place] per 00 :00 every 6 Medical tablet (six) Branch hours as needed for Pain. Indication s: chronic pain ondansetron 0 Yes DISSOLVE [address] [facility] (ZOFRAN-ODT 7-06 TABLET ON Col lege ) 4 mg 00:00: THE TONGUE of disintegrat 00 EVERY 12 Medi patsy ing tablet HOURS e NEEDED pantoprazol 0 Yes 40mg Take [address] [facility] e 7-06 by mouth [facility] (PROTONIX) 00:00: daily. of 40 MG 00 Medicin tablet e ondansetron Yes DISSOLVE 1 [facility] (ZOFRAN-ODT 7-06 TABLET ON Col lege ) 4 mg 00:00: THE TONGUE of disintegrat 00 EVERY 12 Medi patsy ing tablet HOURS e NEEDED pantoprazol 2021-0 Yes 40mg Take [address] [facility] e 7-06 by mouth [place] (PROTONIX) 00:00: daily. of 40 MG 00 Medicin tablet e ondansetron 0 Yes DISSOLVE [address] [facility] (ZOFRAN-ODT 7-06 TABLET ON Col lege ) 4 mg 00:00: THE TONGUE of disintegrat 00 EVERY 12 Medi patsy ing tablet HOURS e NEEDED pantoprazol 0 Yes 40mg Take 40 mg [facility] e 7-06 by mouth [place] (PROTONIX) 00:00: daily. of 40 MG 00 Medicin tablet e ondansetron 0 Yes DISSOLVE 1 [facility] (ZOFRAN-ODT 7-06 TABLET ON [facility] lege ) 4 mg 00:00: THE TONGUE of disintegrat 00 EVERY 12 Medi patsy ing tablet HOURS e NEEDED ofloxacin [address] [facility] (OCUFLOX) 6-22 [place] 0.3 % 00:00: of Solution 00 Medicin e ofloxacin [address] [facility] (OCUFLOX) 6-22 [place] 0.3 % 00:00: of Solution 00 Medicin e ofloxacin [address] [facility] (OCUFLOX) 6-22 [place] 0.3 % 00:00: of Solution 00 Medicin e zolpidem 0 Yes TAKE 1 [facility] (AMBIEN) 10 6-20 TABLET BY [facility]ge MG tablet 00:00: MOUTH AT of 00 BEDTIME Medicin NEEDED FOR e INSOMNIA zolpidem 0 Yes TAKE [address] [facility] (AMBIEN) 10 6-20 TABLET BY Col lege MG tablet 00:00: MOUTH AT of 00 BEDTIME Medicin NEEDED FOR e INSOMNIA zolpidem 2021-0 Yes TAKE [address] [facility] (AMBIEN) 10 6-20 TABLET BY Col lege MG tablet 00:00: MOUTH AT of 00 BEDTIME Medicin NEEDED FOR e INSOMNIA zolpidem 2021-0 Yes TAKE 1 [facility] (AMBIEN) 10 6-20 [...] Pain. Indication s: chronic pain HYDROcodone 2-0 2022- No [id number] 1{tbl} Take 1 U [...] Medical times Branch daily. GABAPENTIN 2022-0 Yes [id number] TAKE 1 [facility] 600 mg 5-31 TABLET BY ity of tablet 00:00: MOUTH [place] 00 THREE Medical TIMES Branch DAILY GABAPENTIN 2022-0 Yes [id number] TAKE 1 [facility] 600 mg 5-31 TABLET BY ity of tablet 00:00: MOUTH [place] 00 THREE Medical TIMES Branch DAILY GABAPENTIN 2022-0 Yes [id number] TAKE 1 [facility] 600 mg 5-31 TABLET BY ity of tablet 00:00: MOUTH [place] 00 THREE Medical TIMES Branch DAILY GABAPENTIN 2022-0 Yes [id number] TAKE 1 [facility] 600 mg 5-31 TABLET BY ity of tablet 00:00: MOUTH [place] 00 THREE Medical TIMES Branch DAILY GABAPENTIN 2022-0 Yes [id number] TAKE 1 [facility] 600 mg 5-31 TABLET BY ity of tablet 00:00: MOUTH [place] 00 THREE Medical TIMES Branch DAILY GABAPENTIN 2022-0 2- No [id number] TAKE 1 [facility] 600 mg 5-31 08-03 TABLET BY ity of tablet 00:00: 00:00 MOUTH [place] 00 :00 THREE Medical TIMES Branch DAILY Insulin 2-0 Yes [id number] Use as [facility] vers Syringe-Nee 5-18 directed ity of dle U-100 1 00:00: [place] mL 31 x 00 Medical 3/8" Syrg Branch Insulin 2022-0 Yes [id number] Use as [facility] vers Syringe-Nee 5-18 directed ity of dle U-100 1 00:00: [place] mL 31 x 00 Medical 3/8" Syrg Branch Insulin 2022-0 Yes [id number] Use as [facility] vers Syringe-Nee 5-18 directed ity of dle U-100 1 00:00: [place] mL 31 x 00 Medical 3/8" Syrg Branch Insulin 2022-0 Yes [id number] Use as [facility] vers Syringe-Nee 5-18 directed ity of dle U-100 1 00:00: [place] mL 31 x 00 Medical 3/8" Syrg Branch Insulin 2022-0 Yes [id number] Use as [facility] vers Syringe-Nee 5-18 directed ity of dle U-100 1 00:00: [place] mL 31 x 00 Medical 3/8" Syrg Branch Insulin 2022-0 Yes [id number] Use as [facility] vers Syringe-Nee 5-18 directed ity of dle U-100 1 00:00: [place] mL 31 x 00 Medical 3/8" Syrg Branch Insulin 2022-0 Yes [id number] Use as [facility] vers Syringe-Nee 5-18 directed ity of dle U-100 1 00:00: [place] mL 31 x 00 Medical 3/8" Syrg Branch Insulin 2022-0 Yes [id number] Use as [facility] vers Syringe-Nee 5-18 directed ity of dle U-100 1 00:00: [place] mL 31 x 00 Medical 3/8" Syrg Branch Insulin 2022-0 Yes [id number] Use as [facility] vers Syringe-Nee 5-18 directed ity of dle U-100 1 00:00: [place] mL 31 x 00 Medical 3/8" Syrg Branch Insulin 2022-0 Yes [id number] Use as [facility] vers Syringe-Nee 5-18 directed ity of dle U-100 1 00:00: [place] mL 31 x 00 Medical 3/8" Syrg Branch Insulin 2022-0 Yes [id number] Use as [facility] vers Syringe-Nee 5-18 directed ity of dle U-100 1 00:00: [place] mL 31 x 00 Medical 3/8" Syrg Branch Insulin 2022-0 Yes [id number] Use as [facility] vers Syringe-Nee 5-18 directed ity of dle U-100 1 00:00: [place] mL 31 x 00 Medical 3/8" Syrg Branch Insulin 2022-0 Yes [id number] Use as [facility] vers Syringe-Nee 5-18 directed ity of dle U-100 1 00:00: [place] mL 31 x 00 Medical 3/8" Syrg Branch Insulin 2022-0 Yes [id number] Use as [facility] vers Syringe-Nee 5-18 directed ity of dle U-100 1 00:00: [place] mL 31 x 00 Medical 3/8" Syrg Branch Insulin 2022-0 Yes [id number] Use as [facility] vers Syringe-Nee 5-18 directed ity of dle U-100 1 00:00: [place] mL 31 x 00 Medical 3/8" Syrg Branch Insulin 2022-0 Yes [id number] Use as [facility] vers Syringe-Nee 5-18 directed ity of dle U-100 1 00:00: [place] mL 31 x 00 Medical 3/8" Syrg Branch Insulin 2022-0 Yes [id number] Use as [facility] vers Syringe-Nee 5-18 directed ity of dle U-100 1 00:00: [place] mL 31 x 00 Medical 3/8" Syrg Branch Insulin 2022-0 Yes [id number] Use as [facility] vers Syringe-Nee 5-18 directed ity of dle U-100 1 00:00: [place] mL 31 x 00 Medical 3/8" Syrg Branch Insulin 2022-0 Yes [id number] Use as [facility] vers Syringe-Nee 5-18 directed ity of dle U-100 1 00:00: [place] mL 31 x 00 Medical 3/8" Syrg Branch Insulin 2022-0 Yes [id number] Use as [facility] vers Syringe-Nee 5-18 directed ity of dle U-100 1 00:00: [place] mL 31 x 00 Medical 3/8" Syrg Branch Insulin 2022-0 Yes [id number] Use as [facility] vers Syringe-Nee 5-18 directed ity of dle U-100 1 00:00: [place] mL 31 x 00 Medical 3/8" Syrg Branch Insulin 2022-0 Yes [id number] Use as [facility] vers Syringe-Nee 5-18 directed ity of dle U-100 1 00:00: [place] mL 31 x 00 Medical 3/8" Syrg Branch Insulin 2022-0 Yes [id number] Use as [facility] vers Syringe-Nee 5-18 directed ity of dle U-100 1 00:00: [place] mL 31 x 00 Medical 3/8" Syrg Branch Insulin 2022-0 Yes [id number] Use as [facility] vers Syringe-Nee 5-18 directed ity of dle U-100 1 00:00: [place] mL 31 x 00 Medical 3/8" Syrg Branch Insulin 2022-0 Yes [id number] Use as [facility] vers Syringe-Nee 5-18 directed ity of dle U-100 1 00:00: [place] mL 31 x 00 Medical 3/8" Syrg Branch Insulin 2022-0 Yes [id number] Use as [facility] vers Syringe-Nee 5-18 directed ity of dle U-100 1 00:00: [place] mL 31 x 00 Medical 3/8" Syrg Branch Insulin 2022-0 Yes [id number] Use as [facility] vers Syringe-Nee 5-18 directed ity of dle U-100 1 00:00: [place] mL 31 x 00 Medical 3/8" Syrg Branch Insulin 2022-0 Yes [id number] Use as [facility] vers Syringe-Nee 5-18 directed ity of dle U-100 1 00:00: [place] mL 31 x 00 Medical 3/8" Syrg Branch Insulin 2022-0 Yes [id number] Use as [facility] vers Syringe-Nee 5-18 directed ity of dle U-100 1 00:00: [place] mL 31 x 00 Medical 3/8" Syrg Branch Insulin 2022-0 Yes [id number] Use as [facility] vers Syringe-Nee 5-18 directed ity of dle U-100 1 00:00: [place] mL 31 x 00 Medical 3/8" Syrg Branch Insulin 2022-0 Yes [id number] Use as [facility] vers Syringe-Nee 5-18 directed ity of dle U-100 1 00:00: [place] mL 31 x 00 Medical 3/8" Syrg Branch Insulin 2022-0 Yes [id number] Use as [facility] vers Syringe-Nee 5-18 directed ity of dle U-100 1 00:00: [place] mL 31 x 00 Medical 3/8" Syrg Branch Insulin 2022-0 Yes [id number] Use as [facility] vers Syringe-Nee 5-18 directed ity of dle U-100 1 00:00: [place] mL 31 x 00 Medical 3/8" Syrg Branch Insulin 2022-0 Yes [id number] Use as [facility] vers Syringe-Nee 5-18 directed ity of dle U-100 1 00:00: [place] mL 31 x 00 Medical 3/8" Syrg Branch Insulin 2022-0 Yes [id number] Use as [facility] vers Syringe-Nee 5-18 directed ity of dle U-100 1 00:00: [place] mL 31 x 00 Medical 3/8" Syrg Branch Insulin 2022-0 Yes [id number] Use as [facility] vers Syringe-Nee 5-18 directed ity of dle U-100 1 00:00: [place] mL 31 x 00 Medical 3/8" Syrg Branch Insulin 2022-0 Yes [id number] Use as [facility] vers Syringe-Nee 5-18 directed ity of dle U-100 1 00:00: [place] mL 31 x 00 Medical 3/8" Syrg Branch Insulin 2022-0 Yes [id number] Use as [facility] vers Syringe-Nee 5-18 directed ity of dle U-100 1 00:00: [place] mL 31 x 00 Medical 3/8" Syrg Branch Insulin 2022-0 Yes [id number] Use as [facility] vers Syringe-Nee 5-18 directed ity of dle U-100 1 00:00: [place] mL 31 x 00 Medical 3/8" Syrg Branch Insulin 2022-0 Yes [id number] Use as [facility] vers Syringe-Nee 5-18 directed ity of dle U-100 1 00:00: [place] mL 31 x 00 Medical 3/8" Syrg Branch Insulin 2022-0 Yes [id number] Use as [facility] vers Syringe-Nee 5-18 directed ity of dle U-100 1 00:00: [place] mL 31 x 00 Medical 3/8" Syrg Branch Insulin 2022-0 Yes [id number] Use as [facility] vers Syringe-Nee 5-18 directed ity of dle U-100 1 00:00: [place] mL 31 x 00 Medical 3/8" Syrg Branch Insulin 2022-0 Yes [id number] Use as [facility] vers Syringe-Nee 5-18 directed ity of dle U-100 1 00:00: [place] mL 31 x 00 Medical 3/8" Syrg Branch Insulin 2022-0 Yes [id number] Use as [facility] vers Syringe-Nee 5-18 directed ity of dle U-100 1 00:00: [place] mL 31 x 00 Medical 3/8" Syrg Branch Insulin 2022-0 Yes [id number] Use as [facility] vers Syringe-Nee 5-18 directed ity of dle U-100 1 00:00: [place] mL 31 x 00 Medical 3/8" Syrg Branch Insulin 2022-0 Yes [id number] Use as [facility] vers Syringe-Nee 5-18 directed ity of dle U-100 1 00:00: [place] mL 31 x 00 Medical 3/8" Syrg Branch METFORMIN 2022-0 Yes [id number] TAKE 1 [facility]ivers 1,000 mg 5-16 TABLET BY ity of tablet 00:00: MOUTH [place] 00 TWICE Medical DAILY WITH Branch MEALS HYDRALAZINE 2-0 Yes [id number] TAKE 1 [facility] 100 mg 5-16 TABLET BY ity of tablet 00:00: MOUTH [place] 00 THREE Medical TIMES Branch DAILY METFORMIN 2-0 Yes [id number] TAKE 1 [facility] 1,000 mg 5-16 TABLET BY ity of tablet 00:00: MOUTH TWICE Medical DAILY WITH Branch MEALS HYDRALAZINE 2-0 Yes [id number] TAKE 1 [facility] 100 mg 5-16 TABLET BY ity of tablet 00:00: MOUTH THREE Medical TIMES Branch DAILY METFORMIN 2-0 Yes [id number] TAKE 1 [facility] 1,000 mg 5-16 TABLET BY ity of tablet 00:00: MOUTH TWICE Medical DAILY WITH Branch MEALS HYDRALAZINE 2021-0 Yes [id number] TAKE 1 [facility] 100 mg 5-16 TABLET BY ity of tablet 00:00: MOUTH THREE Medical TIMES Branch DAILY METFORMIN 2-0 Yes [id number] TAKE 1 [facility] 1,000 mg 5-16 TABLET BY ity of tablet 00:00: TWICE Medical DAILY WITH Branch MEALS HYDRALAZINE 2021-0 Yes [id number] TAKE 1 [facility] 100 mg 5-16 TABLET BY ity of tablet 00:00: THREE Medical TIMES Branch DAILY METFORMIN 2-0 Yes [id number] TAKE 1 [facility] 1,000 mg 5-16 TABLET BY ity of tablet 00:00: TWICE Medical DAILY WITH Branch MEALS HYDRALAZINE 2-0 Yes [id number] TAKE 1 [facility] 100 mg 5-16 TABLET BY ity of tablet 00:00: THREE Medical TIMES Branch DAILY METFORMIN 2-0 Yes [id number] TAKE 1 [facility] 1,000 mg 5-16 TABLET BY ity of tablet 00:00: TWICE Medical DAILY WITH Branch MEALS HYDRALAZINE 2-0 Yes [id number] TAKE 1 [facility] 100 mg 5-16 TABLET BY ity of tablet 00:00: MOUTH THREE Medical TIMES Branch DAILY METFORMIN 2022-0 Yes [id number] TAKE 1 [facility] 1,000 mg 5-16 TABLET BY ity of tablet 00:00: TWICE Medical DAILY WITH Branch MEALS HYDRALAZINE 2-0 Yes [id number] TAKE 1 [facility] 100 mg 5-16 TABLET BY ity of tablet 00:00: MOUTH THREE Medical TIMES Branch DAILY METFORMIN 2022-0 Yes [id number] TAKE 1 [facility] 1,000 mg 5-16 TABLET BY ity of tablet 00:00: MOUTH TWICE Medical DAILY WITH Branch MEALS HYDRALAZINE 2-0 Yes [id number] TAKE 1 [facility] 100 mg 5-16 TABLET BY ity of tablet 00:00: MOUTH 00 THREE Medical TIMES Branch DAILY METFORMIN 2-0 Yes [id number] TAKE 1 [facility] 1,000 mg 5-16 TABLET BY ity of tablet 00:00: MOUTH 00 TWICE Medical DAILY WITH Branch MEALS HYDRALAZINE 2021-0 Yes [id number] TAKE 1 [facility] 100 mg 5-16 TABLET BY ity of tablet 00:00: MOUTH THREE Medical TIMES Branch DAILY METFORMIN 2-0 Yes [id number] TAKE 1 [facility] 1,000 mg 5-16 TABLET BY ity of tablet 00:00: MOUTH TWICE Medical DAILY WITH Branch MEALS HYDRALAZINE 2021-0 Yes [id number] TAKE 1 [facility] 100 mg 5-16 TABLET BY ity of tablet 00:00: MOUTH THREE Medical TIMES Branch DAILY METFORMIN 2-0 Yes [id number] TAKE 1 [facility] 1,000 mg 5-16 TABLET BY ity of tablet 00:00: MOUTH TWICE Medical DAILY WITH Branch MEALS HYDRALAZINE 2021-0 Yes [id number] TAKE 1 [facility] 100 mg 5-16 TABLET BY ity of tablet 00:00: MOUTH THREE Medical TIMES Branch DAILY METFORMIN 2-0 Yes [id number] TAKE 1 [facility] 1,000 mg 5-16 TABLET BY ity of tablet 00:00: MOUTH 00 TWICE Medical DAILY WITH Branch MEALS METFORMIN 2-0 Yes [id number] TAKE 1 [facility] 1,000 mg 5-16 TABLET BY ity of tablet 00:00: MOUTH TWICE Medical DAILY WITH Branch MEALS METFORMIN 2-0 Yes [id number] TAKE 1 [facility] 1,000 mg 5-16 TABLET BY ity of tablet 00:00: MOUTH 00 TWICE Medical DAILY WITH Branch MEALS METFORMIN 2022-0 Yes [id number] TAKE 1 [facility] 1,000 mg 5-16 TABLET BY ity of tablet 00:00: MOUTH 00 TWICE Medical DAILY WITH Branch MEALS METFORMIN 2022-0 Yes [id number] TAKE 1 [facility] 1,000 mg 5-16 TABLET BY ity of tablet 00:00: MOUTH 00 TWICE Medical DAILY WITH Branch MEALS METFORMIN 2-0 Yes [id number] TAKE 1 [facility] 1,000 mg 5-16 TABLET BY ity of tablet 00:00: MOUTH 00 TWICE Medical DAILY WITH Branch MEALS METFORMIN 2022-0 Yes [id number] TAKE 1 [facility] 1,000 mg 5-16 TABLET BY ity of tablet 00:00: MOUTH 00 TWICE Medical DAILY WITH Branch MEALS METFORMIN 2022-0 Yes [id number] TAKE 1 [facility] 1,000 mg 5-16 TABLET BY ity of tablet 00:00: MOUTH 00 TWICE Medical DAILY WITH Branch MEALS METFORMIN 2022-0 Yes [id number] TAKE 1 [facility] 1,000 mg 5-16 TABLET BY ity of tablet 00:00: MOUTH 00 TWICE Medical DAILY WITH Branch MEALS METFORMIN 2022-0 Yes [id number] TAKE 1 [facility] 1,000 mg 5-16 TABLET BY ity of tablet 00:00: MOUTH 00 TWICE Medical DAILY WITH Branch MEALS METFORMIN 2022-0 Yes [id number] TAKE 1 [facility] 1,000 mg 5-16 TABLET BY ity of tablet 00:00: MOUTH 00 TWICE Medical DAILY WITH Branch MEALS METFORMIN 2022-0 Yes [id number] TAKE 1 [facility] 1,000 mg 5-16 TABLET BY ity of tablet 00:00: MOUTH 00 TWICE Medical DAILY WITH Branch MEALS METFORMIN 2022-0 Yes [id number] TAKE 1 [facility] 1,000 mg 5-16 TABLET BY ity of tablet 00:00: MOUTH 00 TWICE Medical DAILY WITH Branch MEALS METFORMIN 2022-0 Yes [id number] TAKE 1 [facility] 1,000 mg 5-16 TABLET BY ity of tablet 00:00: MOUTH 00 TWICE Medical DAILY WITH Branch MEALS METFORMIN 2022-0 Yes [id number] TAKE 1 [facility] 1,000 mg 5-16 TABLET BY ity of tablet 00:00: MOUTH 00 TWICE Medical DAILY WITH Branch MEALS METFORMIN 2022-0 Yes [id number] TAKE 1 [facility] 1,000 mg 5-16 TABLET BY ity of tablet 00:00: MOUTH 00 TWICE Medical DAILY WITH Branch MEALS METFORMIN 2022-0 Yes [id number] TAKE 1 [facility] 1,000 mg 5-16 TABLET BY ity of tablet 00:00: MOUTH 00 TWICE Medical DAILY WITH Branch MEALS METFORMIN 2022-0 Yes [id number] TAKE 1 [facility] 1,000 mg 5-16 TABLET BY ity of tablet 00:00: MOUTH [place] 00 TWICE Medical DAILY WITH Branch MEALS METFORMIN 2021-0 Yes [id number] TAKE 1 [facility] 1,000 mg 5-16 TABLET BY ity of tablet 00:00: MOUTH [place] 00 TWICE Medical DAILY WITH Branch MEALS METFORMIN 2021-0 Yes [id number] TAKE 1 [facility] 1,000 mg 5-16 TABLET BY ity of tablet 00:00: MOUTH [place] 00 TWICE Medical DAILY WITH Branch MEALS METFORMIN 2021-0 Yes [id number] TAKE 1 [facility] 1,000 mg 5-16 TABLET BY ity of tablet 00:00: MOUTH [place] 00 TWICE Medical DAILY WITH Branch MEALS METFORMIN 0 Yes [id number] TAKE 1 [facility] 1,000 mg 5-16 TABLET BY ity of tablet 00:00: MOUTH [place] 00 TWICE Medical DAILY WITH Branch MEALS metformin 0 Yes TAKE 1 [facility] (GLUCOPHAGE 5-16 TABLET BY Col [facility]ge ) 1000 MG 00:00: MOUTH of tablet 00 TWICE Medicin DAILY WITH e MEALS metformin 0 Yes TAKE [address] [facility] (GLUCOPHAGE 5-16 TABLET BY Col lege ) 1000 MG 00:00: MOUTH of tablet 00 TWICE Medicin DAILY WITH e MEALS metformin 0 Yes TAKE [address] [facility] (GLUCOPHAGE 5-16 TABLET BY Col lege ) 1000 MG 00:00: MOUTH of tablet 00 TWICE Medicin DAILY WITH e MEALS metformin 0 Yes TAKE 1 [facility] (GLUCOPHAGE 5-16 TABLET BY Col [facility]ge ) 1000 MG 00:00: MOUTH of tablet 00 TWICE Medicin DAILY WITH e MEALS METFORMIN 2021-0 2021- No [id number] TAKE 1 [facility] 1,000 mg 5-16 11-21 TABLET BY ity o f tablet 00:00: 00:00 MOUTH [place] 00 :00 TWICE Medical DAILY WITH Branch MEALS METFORMIN 2021-0 2021- No [id number] TAKE 1 [facility] 1,000 mg 5-16 11-21 TABLET BY ity o f tablet 00:00: 00:00 MOUTH [place] 00 :00 TWICE Medical DAILY WITH Branch MEALS HYDRALAZINE 2021-0 2021- No [id number] TAKE 1 [facility] 100 mg 5-16 09-06 TABLET BY ity of tablet 00:00: 00:00 MOUTH [place] 00 :00 THREE Medical TIMES Branch DAILY LISINOPRIL 2021-0 Yes [id number] TAKE 1/2 [facility] 40 mg 5-13 TABLET BY ity of tablet 00:00: MOUTH [place] 00 TWICE Medical DAILY Branch LISINOPRIL 2021-0 Yes [id number] TAKE 1/2 [facility] 40 mg 5-13 TABLET BY ity of tablet 00:00: MOUTH [place] 00 TWICE Medical DAILY Branch LISINOPRIL 2021-0 Yes [id number] TAKE 1/2 [facility] 40 mg 5-13 TABLET BY ity of tablet 00:00: MOUTH 00 TWICE Medical DAILY Branch LISINOPRIL 2021-0 Yes [id number] TAKE 1/2 [facility] 40 mg 5-13 TABLET BY ity of tablet 00:00: MOUTH [place] 00 TWICE Medical DAILY Branch LISINOPRIL 2021-0 Yes [id number] TAKE 1/2 [facility] 40 mg 5-13 TABLET BY ity of tablet 00:00: MOUTH 00 TWICE Medical DAILY Branch LISINOPRIL 2021-0 Yes [id number] TAKE 1/2 [facility] 40 mg 5-13 TABLET BY ity of tablet 00:00: MOUTH 00 TWICE Medical DAILY Branch LISINOPRIL 2021-0 Yes [id number] TAKE 1/2 [facility] 40 mg 5-13 TABLET BY ity of tablet 00:00: MOUTH 00 TWICE Medical DAILY Branch LISINOPRIL 2021-0 2021- No [id number] TAKE 1/2 [facility] 40 mg 5-13 08-08 TABLET BY ity of tablet 00:00: 00:00 MOUTH [place] 00 :00 TWICE Medical DAILY Branch LISINOPRIL 2021-0 2021- No [id number] TAKE 1/2 [facility] 40 mg 5-13 08-08 TABLET BY ity of tablet 00:00: 00:00 MOUTH [place] 00 :00 TWICE Medical DAILY Branch HUMULIN 0 Yes [id number] ADMINISTER Univers 70/30 U-100 5-11 70 UNITS ity of INSULIN 100 00:00: [place]ER THE [place] unit/mL 00 SKIN EVERY Medica l (70-30) MORNING Branch suspension THEN ADMINISTER 60 UNITS UNDER THE SKIN EVERY EVENING HUMULIN Yes [id number] ADMINISTER Univers 70/30 U-100 5-11 70 UNITS ity of INSULIN 100 00:00: [place] THE [place] unit/mL 00 SKIN EVERY Medica l (70-30) MORNING Branch suspension THEN ADMINISTER 60 UNITS UNDER THE SKIN EVERY EVENING HUMULIN Yes [id number] ADMINISTER [facility] 70/30 U-100 5-11 70 UNITS ity of INSULIN 100 00:00: [place] THE [place] unit/mL 00 SKIN EVERY Medica l (70-30) MORNING Branch suspension THEN ADMINISTER 60 UNITS UNDER THE SKIN EVERY EVENING HUMULIN Yes [id number] ADMINISTER [facility] 70/30 U-100 5-11 70 UNITS ity of INSULIN 100 00:00: [place] unit/mL 00 SKIN EVERY Medica l (70-30) MORNING Branch suspension THEN ADMINISTER 60 UNITS UNDER THE SKIN EVERY EVENING HUMULIN Yes [id number] ADMINISTER [facility] 70/30 U-100 5-11 70 UNITS ity of INSULIN 100 00:00: [place] unit/mL 00 SKIN EVERY Medica l (70-30) MORNING Branch suspension THEN ADMINISTER 60 UNITS UNDER THE SKIN EVERY EVENING HUMULIN 2021- No [id number] ADMINISTER [facility] 70/30 U-100 5-11 08-03 70 [...] Pain. Indication s: chronic pain GABAPENTIN Yes [id number] TAKE 1 [facility] 600 mg 5-02 TABLET BY ity of tablet 00:00: MOUTH [place] 00 THREE Medical TIMES Branch DAILY BD INSULIN Yes [id number] USE 1 U nivers SYRINGE 5-02 SYRINGE ity of U-500 2 00:00: TWICE [place] mL 31 gauge 00 DAILY WITH Me dical x 15/64" MEALS. Branch Syrg BD INSULIN 0 Yes [id number] USE 1 U nivers SYRINGE 5-02 SYRINGE ity of U-500 2 00:00: TWICE [place] mL 31 gauge 00 DAILY WITH Me dical x 15/64" MEALS. Branch Syrg BD INSULIN 2021-0 Yes [id number] USE 1 U nivers SYRINGE 5-02 SYRINGE ity of U-500 2 00:00: TWICE [place] mL 31 gauge 00 DAILY WITH Me dical x 15/64" MEALS. Branch Syrg BD INSULIN 2021-0 Yes [id number] USE 1 U nivers SYRINGE 5-02 SYRINGE ity of U-500 2 00:00: TWICE [place] mL 31 gauge 00 DAILY WITH Me dical x 15/64" MEALS. Branch Syrg BD INSULIN 2021-0 Yes [id number] USE 1 U nivers SYRINGE 5-02 SYRINGE ity of U-500 11/02 00:00: TWICE [place] mL 31 gauge 00 DAILY WITH Me dical x 15/64" MEALS. Branch Syrg BD INSULIN 0 Yes [id number] USE 1 U nivers SYRINGE 5-02 SYRINGE ity of U-500 2 00:00: TWICE [place] mL 31 gauge 00 DAILY WITH Me dical x 15/64" MEALS. Branch Syrg BD INSULIN 2021-0 Yes [id number] USE 1 U nivers SYRINGE 5-02 SYRINGE ity of U-500 2 00:00: TWICE [place] mL 31 gauge 00 DAILY WITH Me dical x 15/64" MEALS. Branch Syrg BD INSULIN 2021-0 Yes [id number] USE 1 U nivers SYRINGE 5-02 SYRINGE ity of U-500 2 00:00: TWICE [place] mL 31 gauge 00 DAILY WITH Me dical x 15/64" MEALS. Branch Syrg BD INSULIN 2021-0 Yes [id number] USE 1 U nivers SYRINGE 5-02 SYRINGE ity of U-500 2 00:00: TWICE [place] mL 31 gauge 00 DAILY WITH Me dical x 15/64" MEALS. Branch Syrg BD INSULIN 2021-0 Yes [id number] USE 1 U nivers SYRINGE 5-02 SYRINGE ity of U-500 2 00:00: TWICE [place] mL 31 gauge 00 DAILY WITH Me dical x 15/64" MEALS. Branch Syrg BD INSULIN 2021-0 Yes [id number] USE 1 U nivers SYRINGE 5-02 SYRINGE ity of U-500 2 00:00: TWICE [place] mL 31 gauge 00 DAILY WITH Me dical x 15/64" MEALS. Branch Syrg BD INSULIN 2021-0 Yes [id number] USE 1 U nivers SYRINGE 5-02 SYRINGE ity of U-500 2 00:00: TWICE [place] mL 31 gauge 00 DAILY WITH Me dical x 15/64" MEALS. Branch Syrg BD INSULIN 2021-0 Yes [id number] USE 1 U nivers SYRINGE 5-02 SYRINGE ity of U-500 2 00:00: TWICE [place] mL 31 gauge 00 DAILY WITH Me dical x 15/64" MEALS. Branch Syrg BD INSULIN 2021-0 Yes [id number] USE 1 U nivers SYRINGE 5-02 SYRINGE ity of U-500 2 00:00: TWICE [place] mL 31 gauge 00 DAILY WITH Me dical x 15/64" MEALS. Branch Syrg BD INSULIN 2021-0 Yes [id number] USE 1 U nivers SYRINGE 5-02 SYRINGE ity of U-500 2 00:00: TWICE [place] mL 31 gauge 00 DAILY WITH Me dical x 15/64" MEALS. Branch Syrg BD INSULIN 2021-0 Yes [id number] USE 1 U nivers SYRINGE 5-02 SYRINGE ity of U-500 2 00:00: TWICE [place] mL 31 gauge 00 DAILY WITH Me dical x 15/64" MEALS. Branch Syrg BD INSULIN 2021-0 Yes [id number] USE 1 U nivers SYRINGE 5-02 SYRINGE ity of U-500 2 00:00: TWICE [place] mL 31 gauge 00 DAILY WITH Me dical x 15/64" MEALS. Branch Syrg BD INSULIN 2021-0 Yes [id number] USE 1 U nivers SYRINGE 5-02 SYRINGE ity of U-500 2 00:00: TWICE [place] mL 31 gauge 00 DAILY WITH Me dical x 15/64" MEALS. Branch Syrg BD INSULIN 2021-0 Yes [id number] USE 1 U nivers SYRINGE 5-02 SYRINGE ity of U-500 1/2 00:00: TWICE [place] mL 31 gauge 00 DAILY WITH Me dical x 15/64" MEALS. Branch Syrg BD INSULIN 2021-0 Yes [id number] USE 1 U nivers SYRINGE 5-02 SYRINGE ity of U-500 2 00:00: TWICE [place] mL 31 gauge 00 DAILY WITH Me dical x 15/64" MEALS. Branch Syrg BD INSULIN 2021-0 Yes [id number] USE 1 U nivers SYRINGE 5-02 SYRINGE ity of U-500 2 00:00: TWICE [place] mL 31 gauge 00 DAILY WITH Me dical x 15/64" MEALS. Branch Syrg BD INSULIN 2021-0 Yes [id number] USE 1 U nivers SYRINGE 5-02 SYRINGE ity of U-500 2 00:00: TWICE [place] mL 31 gauge 00 DAILY WITH Me dical x 15/64" MEALS. Branch Syrg BD INSULIN 2021-0 Yes [id number] USE 1 U nivers SYRINGE 5-02 SYRINGE ity of U-500 2 00:00: TWICE [place] mL 31 gauge 00 DAILY WITH Me dical x 15/64" MEALS. Branch Syrg BD INSULIN 2021-0 Yes [id number] USE 1 U nivers SYRINGE 5-02 SYRINGE ity of U-500 2 00:00: TWICE [place] mL 31 gauge 00 DAILY WITH Me dical x 15/64" MEALS. Branch Syrg BD INSULIN 2021-0 Yes [id number] USE 1 U nivers SYRINGE 5-02 SYRINGE ity of U-500 2 00:00: TWICE [place] mL 31 gauge 00 DAILY WITH Me dical x 15/64" MEALS. Branch Syrg BD INSULIN 2021-0 Yes [id number] USE 1 U nivers SYRINGE 5-02 SYRINGE ity of U-500 2 00:00: TWICE [place] mL 31 gauge 00 DAILY WITH Me dical x 15/64" MEALS. Branch Syrg BD INSULIN 2021-0 Yes [id number] USE 1 U nivers SYRINGE 5-02 SYRINGE ity of U-500 2 00:00: TWICE [place] mL 31 gauge 00 DAILY WITH Me dical x 15/64" MEALS. Branch Syrg BD INSULIN 2021-0 Yes [id number] USE 1 U nivers SYRINGE 5-02 SYRINGE ity of U-500 1/2 00:00: TWICE [place] mL 31 gauge 00 DAILY WITH Me dical x 15/64" MEALS. Branch Syrg BD INSULIN 2021-0 Yes [id number] USE 1 U nivers SYRINGE 5-02 SYRINGE ity of U-500 2 00:00: TWICE [place] mL 31 gauge 00 DAILY WITH Me dical x 15/64" MEALS. Branch Syrg BD INSULIN 2021-0 Yes [id number] USE 1 U nivers SYRINGE 5-02 SYRINGE ity of U-500 2 00:00: TWICE [place] mL 31 gauge 00 DAILY WITH Me dical x 15/64" MEALS. Branch Syrg BD INSULIN 2021-0 Yes [id number] USE 1 U nivers SYRINGE 5-02 SYRINGE ity of U-500 2 00:00: TWICE [place] mL 31 gauge 00 DAILY WITH Me dical x 15/64" MEALS. Branch Syrg BD INSULIN 2021-0 Yes [id number] USE 1 U nivers SYRINGE 5-02 SYRINGE ity of U-500 2 00:00: TWICE [place] mL 31 gauge 00 DAILY WITH Me dical x 15/64" MEALS. Branch Syrg BD INSULIN Yes [id number] USE 1 U nivers SYRINGE 5-02 SYRINGE ity of U-500 2 00:00: TWICE [place] mL 31 gauge 00 DAILY WITH Me dical x 15/64" MEALS. Branch Syrg BD INSULIN 0 Yes [id number] USE 1 U nivers SYRINGE 5-02 SYRINGE ity of U-500 2 00:00: TWICE [place] mL 31 gauge 00 DAILY WITH Me dical x 15/64" MEALS. Branch Syrg BD INSULIN 2021-0 Yes [id number] USE 1 U nivers SYRINGE 5-02 SYRINGE ity of U-500 2 00:00: TWICE [place] mL 31 gauge 00 DAILY WITH Me dical x 15/64" MEALS. Branch Syrg BD INSULIN 2021-0 Yes [id number] USE 1 U nivers SYRINGE 5-02 SYRINGE ity of U-500 2 00:00: TWICE [place] mL 31 gauge 00 DAILY WITH Me dical x 15/64" MEALS. Branch Syrg BD INSULIN 2021-0 Yes [id number] USE 1 U nivers SYRINGE 5-02 SYRINGE ity of U-500 2 00:00: TWICE [place] mL 31 gauge 00 DAILY WITH Me dical x 15/64" MEALS. Branch Syrg BD INSULIN 2021-0 Yes [id number] USE 1 U nivers SYRINGE 5-02 SYRINGE ity of U-500 2 00:00: TWICE [place] mL 31 gauge 00 DAILY WITH Me dical x 15/64" MEALS. Branch Syrg BD INSULIN 2021-0 Yes [id number] USE 1 U nivers SYRINGE 5-02 SYRINGE ity of U-500 2 00:00: TWICE [place] mL 31 gauge 00 DAILY WITH Me dical x 15/64" MEALS. Branch Syrg BD INSULIN 2021-0 Yes [id number] USE 1 U nivers SYRINGE 5-02 SYRINGE ity of U-500 2 00:00: TWICE [place] mL 31 gauge 00 DAILY WITH Me dical x 15/64" MEALS. Branch Syrg BD INSULIN 2021-0 Yes [id number] USE 1 U nivers SYRINGE 5-02 SYRINGE ity of U-500 2 00:00: TWICE [place] mL 31 gauge 00 DAILY WITH Me dical x 15/64" MEALS. Branch Syrg BD INSULIN 2021-0 Yes [id number] USE 1 U nivers SYRINGE 5-02 SYRINGE ity of U-500 2 00:00: TWICE [place] mL 31 gauge 00 DAILY WITH Me dical x 15/64" MEALS. Branch Syrg BD INSULIN 2021-0 Yes [id number] USE 1 U nivers SYRINGE 5-02 SYRINGE ity of U-500 2 00:00: TWICE [place] mL 31 gauge 00 DAILY WITH Me dical x 15/64" MEALS. Branch Syrg BD INSULIN 2021-0 Yes [id number] USE 1 U nivers SYRINGE 5-02 SYRINGE ity of U-500 2 00:00: TWICE [place] mL 31 gauge 00 DAILY WITH Me dical x 15/64" MEALS. Branch Syrg BD INSULIN 2021-0 Yes [id number] USE 1 U nivers SYRINGE 5-02 SYRINGE ity of U-500 2 00:00: TWICE [place] mL 31 gauge 00 DAILY WITH Me dical x 15/64" MEALS. Branch Syrg BD INSULIN 2021-0 Yes [id number] USE 1 U nivers SYRINGE 5-02 SYRINGE ity of U-500 2 00:00: TWICE [place] mL 31 gauge 00 DAILY WITH Me dical x 15/64" MEALS. Branch Syrg Insulin Yes USE [address] [facility] Syringe/Nee 5-02 SYRINGE [place] U-500 00:00: TWICE of (BD INSULIN 00 DAILY WITH Me dicin SYRINGE MEALS. e U-500) 31G X 6MM 0.5 ML MISC Insulin Yes USE [address] [facility] Syringe/Nee 5-02 SYRINGE [place] U-500 00:00: TWICE of (BD INSULIN 00 DAILY WITH Me dicin SYRINGE MEALS. e U-500) 31G X 6MM 0.5 ML MISC Insulin Yes USE [address] [facility] Syringe/Nee 5-02 S[place]INGE [place] U-500 00:00: TWICE of (BD INSULIN 00 DAILY WITH Me dicin SYRINGE MEALS. e U-500) 31G X 6MM 0.5 ML MISC GABAPENTIN 0 2021- No [id number] TAKE 1 [facility] 600 mg 5-02 05-31 TABLET BY ity of tablet 00:00: 00:00 MOUTH [place] 00 :00 THREE Medical TIMES Branch DAILY sucralfate 2021-0 Yes [id number] 1g Take 1 [facility] 1 gram 3-27 tablet by ity of tablet 00:00: mouth [place] 00 before Medical meals and Branch at bedtime. sucralfate 2021-0 Yes [id number] 1g Take 1 [facility] 1 gram 3-27 tablet by ity of tablet 00:00: mouth [place] 00 before Medical meals and Branch at bedtime. sucralfate 2021-0 Yes [id number] 1g Take 1 [facility] 1 gram 3-27 tablet by ity of tablet 00:00: mouth [place] 00 before Medical meals and Branch at bedtime. sucralfate 2021-0 Yes [id number] 1g Take 1 [facility] 1 gram 3-27 tablet by ity of tablet 00:00: mouth [place] 00 before Medical meals and Branch at bedtime. sucralfate 2021-0 Yes [id number] 1g Take 1 [facility] 1 gram 3-27 tablet by ity of tablet 00:00: mouth [place] 00 before Medical meals and Branch at bedtime. sucralfate 2021-0 Yes [id number] 1g Take 1 [facility] 1 gram 3-27 tablet by ity of tablet 00:00: mouth [place] 00 before Medical meals and Branch at bedtime. sucralfate 2022-0 Yes [id number] 1g Take 1 [facility] 1 gram 3-27 tablet by ity of tablet 00:00: mouth [place] 00 before Medical meals and Branch at bedtime. sucralfate 2-0 Yes [id number] 1g Take 1 [facility] 1 gram 3-27 tablet by ity of tablet 00:00: mouth [place] 00 before Medical meals and Branch at bedtime. sucralfate 2022-0 Yes [id number] 1g Take 1 [facility] 1 gram 3-27 tablet by ity of tablet 00:00: mouth [place] 00 before Medical meals and Branch at bedtime. sucralfate 2-0 Yes [id number] 1g Take 1 [facility] 1 gram 3-27 tablet by ity of tablet 00:00: mouth [place] 00 before Medical meals and Branch at bedtime. sucralfate 2021-0 Yes [id number] 1g Take 1 [facility] 1 gram 3-27 tablet by ity of tablet 00:00: mouth [place] 00 before Medical meals and Branch at bedtime. sucralfate 2021-0 Yes [id number] 1g Take 1 [facility] 1 gram 3-27 tablet by ity of tablet 00:00: mouth [place] 00 before Medical meals and Branch at bedtime. sucralfate 2021-0 Yes [id number] 1g Take 1 [facility] 1 gram 3-27 tablet by ity of tablet 00:00: mouth [place] 00 before Medical meals and Branch at bedtime. sucralfate 2021-0 Yes [id number] 1g Take 1 [facility] 1 gram 3-27 tablet by ity of tablet 00:00: mouth [place] 00 before Medical meals and Branch at bedtime. sucralfate 2021-0 Yes [id number] 1g Take 1 [facility] 1 gram 3-27 tablet by ity of tablet 00:00: mouth [place] 00 before Medical meals and Branch at bedtime. sucralfate 2-0 Yes [id number] 1g Take 1 [facility] 1 gram 3-27 tablet by ity of tablet 00:00: mouth [place] 00 before Medical meals and Branch at bedtime. sucralfate 2022-0 Yes [id number] 1g Take 1 [facility] 1 gram 3-27 tablet by ity of tablet 00:00: mouth [place] 00 before Medical meals and Branch at bedtime. sucralfate 2022-0 Yes [id number] 1g Take 1 [facility] 1 gram 3-27 tablet by ity of tablet 00:00: mouth [place] 00 before Medical meals and Branch at bedtime. sucralfate 2022-0 Yes [id number] 1g Take 1 [facility] 1 gram 3-27 tablet by ity of tablet 00:00: mouth [place] 00 before Medical meals and Branch at bedtime. sucralfate 2022-0 Yes [id number] 1g Take 1 Univers 1 gram 3-27 tablet by ity of tablet 00:00: mouth [place] 00 before Medical meals and Branch at bedtime. sucralfate 2022-0 Yes [id number] 1g Take 1 [facility] 1 gram 3-27 tablet by ity of tablet 00:00: mouth [place] 00 before Medical meals and Branch at bedtime. sucralfate 2-0 Yes [id number] 1g Take 1 [facility] 1 gram 3-27 tablet by ity of tablet 00:00: mouth [place] 00 before Medical meals and Branch at bedtime. sucralfate 2022-0 Yes [id number] 1g Take 1 [facility] 1 gram 3-27 tablet by ity of tablet 00:00: mouth [place] 00 before Medical meals and Branch at bedtime. sucralfate 2-0 Yes [id number] 1g Take 1 [facility] 1 gram 3-27 tablet by ity of tablet 00:00: mouth [place] 00 before Medical meals and Branch at bedtime. sucralfate 2-0 Yes [id number] 1g Take 1 [facility] 1 gram 3-27 tablet by ity of tablet 00:00: mouth [place] 00 before Medical meals and Branch at bedtime. sucralfate 2022-0 Yes [id number] 1g Take 1 [facility] 1 gram 3-27 tablet by ity of tablet 00:00: mouth [place] 00 before Medical meals and Branch at bedtime. sucralfate 2-0 Yes [id number] 1g Take 1 [facility] 1 gram 3-27 tablet by ity of tablet 00:00: mouth [place] 00 before Medical meals and Branch at bedtime. sucralfate 2022-0 Yes [id number] 1g Take 1 [facility] 1 gram 3-27 tablet by ity of tablet 00:00: mouth [place] 00 before Medical meals and Branch at bedtime. sucralfate 2022-0 Yes [id number] 1g Take 1 [facility] 1 gram 3-27 tablet by ity of tablet 00:00: mouth [place] 00 before Medical meals and Branch at bedtime. sucralfate 2022-0 Yes [id number] 1g Take 1 [facility] 1 gram 3-27 tablet by ity of tablet 00:00: mouth [place] 00 before Medical meals and Branch at bedtime. sucralfate 2022-0 Yes [id number] 1g Take 1 [facility] 1 gram 3-27 tablet by ity of tablet 00:00: mouth [place] 00 before Medical meals and Branch at bedtime. sucralfate 2022-0 Yes [id number] 1g Take 1 [facility] 1 gram 3-27 tablet by ity of tablet 00:00: mouth [place] 00 before Medical meals and Branch at bedtime. sucralfate 2022-0 Yes [id number] 1g Take 1 [facility] 1 gram 3-27 tablet by ity of tablet 00:00: mouth [place] 00 before Medical meals and Branch at bedtime. sucralfate 2022-0 Yes [id number] 1g Take 1 [facility] 1 gram 3-27 tablet by ity of tablet 00:00: mouth [place] 00 before Medical meals and Branch at bedtime. sucralfate 2022-0 Yes [id number] 1g Take 1 [facility] 1 gram 3-27 tablet by ity of tablet 00:00: mouth [place] 00 before Medical meals and Branch at bedtime. sucralfate 2022-0 Yes [id number] 1g Take 1 [facility] 1 gram 3-27 tablet by ity of tablet 00:00: mouth [place] 00 before Medical meals and Branch at bedtime. sucralfate 2022-0 Yes [id number] 1g Take 1 [facility] 1 gram 3-27 tablet by ity of tablet 00:00: mouth [place] 00 before Medical meals and Branch at bedtime. sucralfate 2022-0 Yes [id number] 1g Take 1 [facility] 1 gram 3-27 tablet by ity of tablet 00:00: mouth [place] 00 before Medical meals and Branch at bedtime. sucralfate 2022-0 Yes [id number] 1g Take 1 [facility] 1 gram 3-27 tablet by ity of tablet 00:00: mouth [place] 00 before Medical meals and Branch at bedtime. sucralfate 2022-0 Yes [id number] 1g Take 1 [facility] 1 gram 3-27 tablet by ity of tablet 00:00: mouth [place] 00 before Medical meals and Branch at bedtime. sucralfate 2022-0 Yes [id number] 1g Take 1 [facility] 1 gram 3-27 tablet by ity of tablet 00:00: mouth [place] 00 before Medical meals and Branch at bedtime. sucralfate 2022-0 Yes [id number] 1g Take 1 [facility] 1 gram 3-27 tablet by ity of tablet 00:00: mouth [place] 00 before Medical meals and Branch at bedtime. sucralfate 2022-0 Yes [id number] 1g Take 1 [facility] 1 gram 3-27 tablet by ity of tablet 00:00: mouth [place] 00 before Medical meals and Branch at bedtime. sucralfate 2022-0 Yes [id number] 1g Take 1 [facility] 1 gram 3-27 tablet by ity of tablet 00:00: mouth [place] 00 before Medical meals and Branch at bedtime. sucralfate 2022-0 Yes [id number] 1g Take 1 [facility] 1 gram 3-27 tablet by ity of tablet 00:00: mouth [place] 00 before Medical meals and Branch at bedtime. sucralfate 2022-0 Yes [id number] 1g Take 1 [facility] 1 gram 3-27 tablet by ity of tablet 00:00: mouth [place] 00 before Medical meals and Branch at bedtime. sucralfate 2021-0 Yes 1g Take 1 g [place] [facility] (CARAFATE) 3-27 by mouth. Hiro ege 1 g tablet 00:00: of 00 Medicin e sucralfate 2021-0 Yes 1g Take 1 g [place] [facility] (CARAFATE) 3-27 by mouth. [facility] 1 g tablet 00:00: Medicin e sucralfate 2021-0 Yes 1g Take 1 g [place] [facility] (CARAFATE) 3-27 by mouth. [facility] e[facility] 1 g tablet 00:00: 00 Medicin e sucralfate 2021-0 Yes 1g Take 1 g [place] [facility] (CARAFATE) 3-27 by mouth. Hiro ege 1 g tablet 00:00: Medicin e metoprolol 2021-0 Yes 100mg QD Take 100 [facility] [...] as needed for Anxiety. hydrALAZINE Yes 10mg Q.[id number] Take [address] [facility] (APRESOLINE 3-11 [id number] by [facility] ) 10 MG [...] MG 02 Center tablet gabapentin Yes 100mg Q.[id number] Take [address] [facility] (NEURONTIN) 3-11 [id number] mg by L ukes 100 MG 14:10: [...] 100 unit/mL and (70-30) dinner. injection metFORMIN 2021-0 Yes 1000mg Take 1,[address] [facility] (GLUCOPHAGE [...] al 40 MG 02 Center tablet clonazePAM 2021-0 Yes .5mg Take 0.[address] [facility] (KlonoPIN) 3-11 mg [facility] MG 14:10: mouth 2 Medical tablet 02 (two) Center times daily as needed for Anxiety. hydrALAZINE 2021-0 Yes 10mg Q.[id number] Take [address] [facility] (APRESOLINE 3-11 [id number] by mouth [facility] ) 10 MG [...] mari 25 MG 02 Center tablet gabapentin 2021-0 Yes 100mg Q.[id number] Take [address] [facility] (NEURONTIN) 3-11 [id number] mg by L ukes 100 MG 14:10: 3D mouth 3 Medical capsule 02 (three) Center times daily. amLODIPine 2021-0 Yes 10mg QD Take [address] [facility] (NORVASC) 3-11 by mouth [facility] 10 MG 14:10: daily In Medical tablet 02 am. Center insulin [address] [facility] aspart 3-11 subcutaneo [facility] protamine-i 14:10: usly 2 Medi mari nsulin 02 (two) Center aspart times (NovoLOG daily with MIX 70/30) breakfast 100 unit/mL and (70-30) dinner. injection metFORMIN 2021-0 Yes 1000mg Take 1,[address] [facility] (GLUCOPHAGE [...] as needed for Anxiety. hydrALAZINE Yes 10mg Q.[id number] Take [address] [facility] (APRESOLINE 3-11 [id number] by mouth [facility] ) 10 MG [...] MG 02 Center tablet gabapentin Yes 100mg Q.[id number] Take [address] [facility] (NEURONTIN) 3-11 [id number] mg by L ukes 100 MG 14:10: [...] 100 unit/mL and (70-30) dinner. injection metFORMIN 2021-0 Yes 1000mg Take 1,[address] [facility] (GLUCOPHAGE 3-11 mg by [facility] ) 1000 MG 14:10: mouth 2 Medic al tablet 02 (two) Center times daily with breakfast and dinner. ondansetron 2021-0 Yes 4mg Take 4 mg [facility] [...] al 40 MG 02 Center tablet clonazePAM 2021-0 Yes .5mg Take 0.[address] [facility] (KlonoPIN) 3-11 mg by [facility] 0.5 MG 14:10: mouth 2 Medical tablet 02 (two) Center times daily as needed for Anxiety. hydrALAZINE 2021-0 Yes 10mg Q.[id number] Take [address] [facility] (APRESOLINE 3-11 [id number] by mouth 3 [facility] ) 10 MG [...] 02 Center tablet gabapentin 0 Yes 100mg Q.[id number] Take [address] [facility] (NEURONTIN) 3-11 [id number] mg by L ukes 100 MG 14:10: [...] as needed for Anxiety. hydrALAZINE Yes 10mg Q.[id number] Take [address] [facility] (APRESOLINE 3-11 [id number] by mouth [facility] ) 10 MG [...] MG 02 Center tablet gabapentin Yes 100mg Q.[id number] Take [address] [facility] (NEURONTIN) 3-11 [id number] mg by L ukes 100 MG 14:10: [...] 100 unit/mL and (70-30) dinner. injection metFORMIN 2022-0 Yes 1000mg Take 1,[address] [facility] (GLUCOPHAGE [...] needed for Anxiety. hydrALAZINE 0 Yes 10mg Q.[id number] Take [address] [facility] (APRESOLINE 3-11 [id number] by mouth 3 [facility] ) 10 MG 14:10: 3D (three) Medical tablet 02 times Center daily In am. hydroCHLORO 2022-0 Yes 25mg QD Take [address] [facility] thiazide 3-11 by mouth [facility] (HYDRODIURI 14:10: daily. Medi mari L) 25 MG 02 Center tablet spironolact Yes 25mg QD Take [address] [facility] one 3-11 by mouth [facility] (ALDACTONE) 14:10: daily. Medi mari 25 MG 02 Center tablet gabapentin Yes 100mg Q.[id number] Take [address] [facility] (NEURONTIN) 3-11 [id number] mg by L ukes 100 MG 14:10: [...] tablet 00 TWICE Medical DAILY Branch METOPROLOL 202- No TAKE 1 Univ ers TARTRATE 2-14 06-09 TABLET BY ity o f 100 mg 00:00: 00:00 MOUTH [place] tablet 00 :00 TWICE Medical DAILY Branch HYDROCHLORO 2021-0 Yes [id number] 12.5mg TAKE 1 [facility] THIAZIDE 1-19 CAPSULE BY ity o f 12.5 mg 00:00: MOUTH [place] capsule 00 DAILY Medical Branch HYDROCHLORO 2021-0 Yes [id number] 12.5mg TAKE 1 [facility] THIAZIDE 1-19 CAPSULE BY ity o f 12.5 mg 00:00: MOUTH [place] capsule 00 DAILY Medical Branch HYDROCHLORO 2021-0 Yes [id number] 12.5mg TAKE 1 [facility] THIAZIDE 1-19 CAPSULE BY ity o f 12.5 mg 00:00: MOUTH [place] capsule 00 DAILY Medical Branch HYDROCHLORO 2021-0 Yes [id number] 12.5mg TAKE 1 [facility] THIAZIDE 1-19 CAPSULE BY ity o f 12.5 mg 00:00: MOUTH [place] capsule 00 DAILY Medical Branch HYDROCHLORO 2021-0 2- No [id number] 12.5mg TAKE 1 [facility] THIAZIDE 1-19 07-18 CAPSULE BY ity of 12.5 mg 00:00: 00:00 MOUTH [place] capsule 00 :00 DAILY Medical Branch Prucaloprid 2021-0 Yes [id number] 2mg Take [address] [facility] e Succinate 1-06 by mouth Hiro e[facility] 2 MG TABS 00:00: daily. of Medicin e Prucaloprid Yes [id number] 2mg Take 2 mg [facility] Succinate 1-06 by mouth [facility] 2 MG TABS 00:00: daily. of Medicin e PEG-KCl-NaC Yes [id number] [MOVI [facility] l-NaSulf-Na 1-06 PREP] Take [facility]: as of (MOVIPREP) 00 directed. Medi patsy 100 g SOLR e Prucaloprid Yes [id number] 2mg Take 2 mg [place] [facility] Succinate 1-06 by mouth [facility] 2 MG TABS 00:00: daily. of Medicin e Prucaloprid Yes [id number] 2mg Take 2 mg [place] [facility] Succinate 1-06 by mouth [facility] 2 MG TABS 00:00: daily. of Medicin e Prucaloprid Yes [id number] 2mg Take 2 mg [place] [facility] Succinate [...] FOR CHEST PAIN. nitroglycer 2020-11 Yes nitroglyce [facility] 12-28 rin 0.4 mg [place] (NITROSTAT) 00:00: sublingual of 0.4 mg [address] 1 e tablet TABLET UNDER THE TONGUE EVERY 5 MINUTES NEEDED FOR CHEST PAIN. nitroglycer 2020-[address] [facility] in 12-28 rin 0.4 mg [place] (NITROSTAT) 00:00: sublingual of 0.4 mg [address] 1 e tablet TABLET UNDER THE TONGUE EVERY 5 MINUTES NEEDED FOR CHEST PAIN. nitroglycer 2020-11 Yes nitroglyce [facility] 12-28 rin 0.4 mg [place] (NITROSTAT) 00:00: sublingual of 0.4 mg [address] 1 e tablet TABLET UNDER THE TONGUE EVERY 5 MINUTES NEEDED FOR CHEST PAIN. NITROGLYCER 2020-[address] 1 Un ally IN 0.4 mg 12-28- TABLET ity of sublingual 00:00: 00:00 UNDER THE [place] tablet 00 :00 TONGUE Medical EVERY 5 Branch MINUTES NEEDED FOR CHEST PAIN. DICLOFENAC 2020-11 Yes [id number] APPLY TO Univers SODIUM 1 % 2-02 THE ity of gel 00:00: AFFECTED [address] FOUR Medical TIMES Branch DAILY DICLOFENAC 2020-11 Yes [id number] APPLY TO Univers SODIUM 1 % 2-02 THE ity of gel 00:00: AFFECTED [place] [facility] FOUR Medical TIMES Branch DAILY DICLOFENAC 2020-11 Yes [id number] APPLY TO Univers SODIUM 1 % 2-02 THE ity of gel 00:00: AFFECTED [place] 00 AREA FOUR Medical TIMES Branch DAILY DICLOFENAC 2020-11 Yes [id number] APPLY TO Univers SODIUM 1 % 2-02 THE ity of gel 00:00: AFFECTED [place] [facility] FOUR Medical TIMES Branch DAILY DICLOFENAC 2020-11 Yes [id number] APPLY TO Univers SODIUM 1 % 2-02 THE ity of gel 00:00: AFFECTED [place] 00 AREA FOUR Medical TIMES Branch DAILY DICLOFENAC 2020-11 Yes [id number] APPLY TO Univers SODIUM 1 % 2-02 THE ity of gel 00:00: AFFECTED [place] 00 AREA FOUR Medical TIMES Branch DAILY DICLOFENAC 2020-11 Yes [id number] APPLY TO Univers SODIUM 1 % 2-02 THE ity of gel 00:00: AFFECTED [place] [facility] FOUR Medical TIMES Branch DAILY DICLOFENAC 2020-11 Yes [id number] APPLY TO Univers SODIUM 1 % 2-02 THE ity of gel 00:00: AFFECTED [place] 00 [facility] Medical TIMES Branch DAILY DICLOFENAC 2020-11 Yes [id number] APPLY TO Univers SODIUM 1 % 2-02 THE ity of gel 00:00: AFFECTED [place] [facility] FOUR Medical TIMES Branch DAILY DICLOFENAC 2020-11 Yes [id number] APPLY TO Univers SODIUM 1 % 2-02 THE ity of gel 00:00: AFFECTED [place] [facility] FOUR Medical TIMES Branch DAILY DICLOFENAC 2020-11 Yes [id number] APPLY TO Univers SODIUM 1 % 2-02 THE ity of gel 00:00: AFFECTED [place] [facility] FOUR Medical TIMES Branch DAILY DICLOFENAC 2020-11 Yes [id number] APPLY TO Univers SODIUM 1 % 2-02 THE ity of gel 00:00: AFFECTED [place] [facility] FOUR Medical TIMES Branch DAILY DICLOFENAC 2020-11 Yes [id number] APPLY TO Univers SODIUM 1 % 2-02 THE ity of gel 00:00: AFFECTED [place] [facility] FOUR Medical TIMES Branch DAILY DICLOFENAC 2020-11 Yes [id number] APPLY TO Univers SODIUM 1 % 2-02 THE ity of gel 00:00: AFFECTED [place] [facility] FOUR Medical TIMES Branch DAILY DICLOFENAC 2020-11 Yes [id number] APPLY TO Univers SODIUM 1 % 2-02 THE ity of gel 00:00: AFFECTED [place] [facility] FOUR Medical TIMES Branch DAILY DICLOFENAC 2020-11 Yes [id number] APPLY TO Univers SODIUM 1 % 2-02 THE ity of gel 00:00: AFFECTED [place] 00 AREA FOUR Medical TIMES Branch DAILY DICLOFENAC 2020-11 Yes [id number] APPLY TO Univers SODIUM 1 % 2-02 THE ity of gel 00:00: AFFECTED [place] 00 AREA FOUR Medical TIMES Branch DAILY DICLOFENAC 2020-11 Yes [id number] APPLY TO Univers SODIUM 1 % 2-02 THE ity of gel 00:00: AFFECTED [place] 00 AREA FOUR Medical TIMES Branch DAILY DICLOFENAC 2020-11 Yes [id number] APPLY TO Univers SODIUM 1 % 2-02 THE ity of gel 00:00: AFFECTED [place] 00 AREA FOUR Medical TIMES Branch DAILY DICLOFENAC 2020-11 Yes [id number] APPLY TO Univers SODIUM 1 % 2-02 THE ity of gel 00:00: AFFECTED [place] [address] [facility] Medical TIMES Branch DAILY DICLOFENAC 2020-11 Yes [id number] APPLY TO Univers SODIUM 1 % 2-02 THE ity of gel 00:00: AFFECTED [place] [address] [facility] Medical TIMES Branch DAILY DICLOFENAC 2020-11 Yes [id number] APPLY TO Univers SODIUM 1 % 2-02 THE ity of gel 00:00: AFFECTED [place] [address] [facility] Medical TIMES Branch DAILY Diclofenac 2020-11 Yes [...] AREA FOUR TIMES DAILY DICLOFENAC 2020-11- No [id number] APPLY TO Univers SODIUM 1 % 2-02 10-25 THE ity of gel 00:00: 00:00 AFFECTED [place] 00 :[address] [facility] Medical TIMES Branch DAILY DICLOFENAC 2020-11- No [id number] APPLY TO Univers SODIUM 1 % 2-02 10-25 THE ity of gel 00:00: 00:00 AFFECTED [place] 00 :[address] [facility] Medical TIMES Branch DAILY colchicine 2020-11 Yes [id number] .6mg Take 1 U nivers 0.6 mg 0-07 tablet by ity of tablet 00:00: mouth [place] 00 daily. Medical Branch colchicine 2020-11 Yes [id number] .6mg Take 1 U nivers 0.6 mg 0-07 tablet by ity of tablet 00:00: mouth [place] 00 daily. Medical Branch colchicine 2020-11 Yes [id number] .6mg Take 1 U nivers 0.6 mg 0-07 tablet by ity of tablet 00:00: mouth [place] 00 daily. Medical Branch colchicine 2020-11 Yes [id number] .6mg Take 1 U nivers 0.6 mg 0-07 tablet by ity of tablet 00:00: mouth [place] 00 daily. Medical Branch colchicine 2020-11 Yes [id number] .6mg Take 1 U nivers 0.6 mg 0-07 tablet by ity of tablet 00:00: mouth [place] 00 daily. Medical Branch colchicine 2020-11 Yes [id number] .6mg Take 1 U nivers 0.6 mg 0-07 tablet by ity of tablet 00:00: mouth [place] 00 daily. Medical Branch colchicine 2020-11 Yes [id number] .6mg Take 1 U nivers 0.6 mg 0-07 tablet by ity of tablet 00:00: mouth [place] 00 daily. Medical Branch colchicine 2020-11 Yes [id number] .6mg Take 1 U nivers 0.6 mg 0-07 tablet by ity of tablet 00:00: mouth [place] 00 daily. Medical Branch colchicine 2020-11 Yes [id number] .6mg Take 1 U nivers 0.6 mg 0-07 tablet by ity of tablet 00:00: mouth [place] 00 daily. Medical Branch colchicine 2020-11 Yes [id number] .6mg Take 1 U nivers 0.6 mg 0-07 tablet by ity of tablet 00:00: mouth [place] 00 daily. Medical Branch colchicine 2020-11 Yes [id number] .6mg Take 1 U nivers 0.6 mg 0-07 tablet by ity of tablet 00:00: mouth [place] 00 daily. Medical Branch colchicine 2020-11 Yes [id number] .6mg Take 1 U nivers 0.6 mg 0-07 tablet by ity of tablet 00:00: mouth [place] 00 daily. Medical Branch colchicine 2020-11 Yes [id number] .6mg Take 1 U nivers 0.6 mg 0-07 tablet by ity of tablet 00:00: mouth [place] 00 daily. Medical Branch colchicine 2020-11- No [id number] .6mg Take 1 Univers 0.6 mg 007-20 tablet by ity of tablet 00:00: 00:00 mouth [place] 00 :00 daily. Medical Branch TRUEPLUS 2020-0 Yes USE TWICE [...] [place] x /16 Syrg Medical Branch TRUEPLUS 202-0 Yes USE TWICE Univ ers INSULIN 1 [...] 00:00: [place] x 03/16 Syrg Medical Branch mirtazapine 0 Yes 15mg Take 15 mg [facility] 15 mg 7-14 by mouth ity of tablet 09:38: at [place] [address] bedtime. Medical Branch mesalamine 0 Yes 1.5g Take 1.5 g U nivers 0.375 gram 7-14 by mouth ity o f 24 hr 09:38: daily. [place] [address] Medical Branch mirtazapine 2020-0 Yes 15mg Take 15 mg [facility] 15 mg 7-14 by mouth ity of tablet 09:38: at [place] [address] bedtime. Medical Branch mesalamine 0 Yes 1.5g Take 1.5 g U nivers 0.375 gram 7-14 by mouth ity o f 24 hr 09:38: daily. [place] [address] Medical Branch mirtazapine 2020-0 Yes 15mg Take 15 mg [facility] 15 mg 7-14 by mouth ity of tablet 09:38: at [place] [address] bedtime. Medical Branch mesalamine 2020-0 Yes 1.5g Take 1.5 g U nivers 0.375 gram 7-14 by mouth ity o f 24 hr 09:38: daily. [address] Branch mirtazapine 2020-0 Yes 15mg Take 15 mg [facility] 15 mg 7-14 by mouth ity of tablet 09:38: at [place] [address] bedtime. Medical Branch mesalamine 2020-0 Yes 1.5g Take 1.5 g U nivers 0.375 gram 7-14 by mouth ity o f 24 hr 09:38: daily. [place] [facility] mirtazapine 2020-0 Yes 15mg Take 15 mg [facility] 15 mg 7-14 by mouth ity of tablet 09:38: at [place] [address] bedtime. [facility] mesalamine 2020-0 Yes 1.5g Take 1.5 g U nivers 0.375 gram 7-14 by mouth ity o f 24 hr 09:38: daily. [facility] 49 [facility] Branch mirtazapine 2020-0 Yes 15mg Take 15 mg [facility] 15 mg 7-14 by mouth ity of tablet 09:38: at [place] [address] bedtime. [facility] Branch mesalamine 2020-0 Yes 1.5g Take 1.5 g U nivers 0.375 gram 7-14 by mouth ity o f 24 hr 09:38: daily. [facility] 49 [facility] Branch mirtazapine 2020-0 Yes 15mg Take 15 mg [facility] 15 mg 7-14 by mouth ity of tablet 09:38: at [place] [address] bedtime. [facility] mesalamine 2020-0 Yes 1.5g Take 1.5 g U nivers 0.375 gram 7-14 by mouth ity o f 24 hr 09:38: daily. [facility] 49 [facility] Branch mirtazapine 2020-0 Yes 15mg Take 15 mg [facility] 15 mg 7-14 by mouth ity of tablet 09:38: at [place] [address] bedtime. [facility] [place] mesalamine 2020-0 Yes 1.5g Take 1.5 g U nivers 0.375 gram 7-14 by mouth ity o f 24 hr 09:38: daily. [facility] 49 Medical [place] mirtazapine 2020-0 Yes 15mg Take 15 mg [facility] 15 mg 7-14 by mouth ity of tablet 09:38: at [place] [address] bedtime. [facility] [place] mesalamine 2020-0 Yes 1.5g Take 1.5 g U nivers 0.375 gram 7-14 by mouth ity o f 24 hr 09:38: daily. [facility] 49 Medical [place] mirtazapine 2020-0 Yes 15mg Take 15 mg [facility] 15 mg 7-14 by mouth ity of tablet 09:38: at [place] [address] bedtime. [facility] Branch mesalamine 2020-0 Yes 1.5g Take 1.5 g U nivers 0.375 gram 7-14 by mouth ity o f 24 hr 09:38: daily. [place] [facility] mirtazapine 2020-0 Yes 15mg Take 15 mg [facility] 15 mg 7-14 by mouth ity of tablet 09:38: at [place] [address] bedtime. [facility] mesalamine 2020-0 Yes 1.5g Take 1.5 g U nivers 0.375 gram 7-14 by mouth ity o f 24 hr 09:38: daily. [facility] 49 Medical Branch mirtazapine 2020-0 Yes 15mg Take 15 mg [facility] 15 mg 7-14 by mouth ity of tablet 09:38: at [place] [address] bedtime. [facility] mesalamine 2020-0 Yes 1.5g Take 1.5 g U nivers 0.375 gram 7-14 by mouth ity o f 24 hr 09:38: daily. [facility] 49 Medical Branch mirtazapine 2020-0 Yes 15mg Take 15 mg [facility] 15 mg 7-14 by mouth ity of tablet 09:38: at [place] [address] bedtime. [facility] mesalamine 2020-0 Yes 1.5g Take 1.5 g U nivers 0.375 gram 7-14 by mouth ity o f 24 hr 09:38: daily. [facility] 49 [facility] Branch mirtazapine 2020-0 Yes 15mg Take 15 mg [facility] 15 mg 7-14 by mouth ity of tablet 09:38: at [place] [address] bedtime. [facility] mesalamine 2020-0 Yes 1.5g Take 1.5 g U nivers 0.375 gram 7-14 by mouth ity o f 24 hr 09:38: daily. [facility] 49 [facility] Branch mirtazapine 2020-0 Yes 15mg Take 15 mg [facility] 15 mg 7-14 by mouth ity of tablet 09:38: at [place] [address] bedtime. [facility] mesalamine 2020-0 Yes 1.5g Take 1.5 g U nivers 0.375 gram 7-14 by mouth ity o f 24 hr 09:38: daily. [facility] 49 [facility] Branch mirtazapine 2020-0 Yes 15mg Take 15 mg [facility] 15 mg 7-14 by mouth ity of tablet 09:38: at [place] [address] bedtime. [facility] mesalamine 2020-0 Yes 1.5g Take 1.5 g U nivers 0.375 gram 7-14 by mouth ity o f 24 hr 09:38: daily. [place] [facility] mirtazapine 2020-0 Yes 15mg Take 15 mg [facility] 15 mg 7-14 by mouth ity of tablet 09:38: at [place] [address] bedtime. [facility] mesalamine 2020-0 Yes 1.5g Take 1.5 g U nivers 0.375 gram 7-14 by mouth ity o f 24 hr 09:38: daily. [facility] 49 [facility] Branch mirtazapine 2020-0 Yes 15mg Take 15 mg [facility] 15 mg 7-14 by mouth ity of tablet 09:38: at [place] [address] bedtime. [facility] mesalamine 2020-0 Yes 1.5g Take 1.5 g U nivers 0.375 gram 7-14 by mouth ity o f 24 hr 09:38: daily. [facility] 49 [facility] Branch mirtazapine 2020-0 Yes 15mg Take 15 mg [facility] 15 mg 7-14 by mouth ity of tablet 09:38: at [place] [address] bedtime. [facility] [place] mesalamine 2020-0 Yes 1.5g Take 1.5 g U nivers 0.375 gram 7-14 by mouth ity o f 24 hr 09:38: daily. [facility] 49 [facility] Branch mirtazapine 2020-0 Yes 15mg Take 15 mg [facility] 15 mg 7-14 by mouth ity of tablet 09:38: at [place] [address] bedtime. [facility] [place] mesalamine 2020-0 Yes 1.5g Take 1.5 g U nivers 0.375 gram 7-14 by mouth ity o f 24 hr 09:38: daily. [facility] 49 [facility] Branch mirtazapine 2020-0 Yes 15mg Take 15 mg [facility] 15 mg 7-14 by mouth ity of tablet 09:38: at [place] [address] bedtime. [facility] [place] mesalamine 2020-0 Yes 1.5g Take 1.5 g U nivers 0.375 gram 7-14 by mouth ity o f 24 hr 09:38: daily. [facility] 49 [facility] Branch mirtazapine 2020-0 Yes 15mg Take 15 mg [facility] 15 mg 7-14 by mouth ity of tablet 09:38: at [place] [address] bedtime. [facility] Branch mesalamine 2020-0 Yes 1.5g Take 1.5 g U nivers 0.375 gram 7-14 by mouth ity o f 24 hr 09:38: daily. [facility] 49 [facility] Branch mirtazapine 2020-0 Yes 15mg Take 15 mg [facility] 15 mg 7-14 by mouth ity of tablet 09:38: at [place] [address] bedtime. [facility] mesalamine 2020-0 Yes 1.5g Take 1.5 g U nivers 0.375 gram 7-14 by mouth ity o f 24 hr 09:38: daily. [facility] 49 [facility] Branch mirtazapine 2020-0 Yes 15mg Take 15 mg [facility] 15 mg 7-14 by mouth ity of tablet 09:38: at [place] [address] bedtime. [facility] mesalamine 2020-0 Yes 1.5g Take 1.5 g U nivers 0.375 gram 7-14 by mouth ity o f 24 hr 09:38: daily. [facility] 49 [facility] Branch mirtazapine 2020-0 Yes 15mg Take 15 mg [facility] 15 mg 7-14 by mouth ity of tablet 09:38: at [place] [address] bedtime. [facility] mesalamine 2020-0 Yes 1.5g Take 1.5 g U nivers 0.375 gram 7-14 by mouth ity o f 24 hr 09:38: daily. [facility] 49 [facility] Branch mirtazapine 2020-0 Yes 15mg Take 15 mg [facility] 15 mg 7-14 by mouth ity of tablet 09:38: at [place] [address] bedtime. [facility] mesalamine 2020-0 Yes 1.5g Take 1.5 g U nivers 0.375 gram 7-14 by mouth ity o f 24 hr 09:38: daily. [facility] 49 [facility] Branch mirtazapine 2020-0 Yes 15mg Take 15 mg [facility] 15 mg 7-14 by mouth ity of tablet 09:38: at [place] [address] bedtime. [facility] mesalamine 2020-0 Yes 1.5g Take 1.5 g U nivers 0.375 gram 7-14 by mouth ity o f 24 hr 09:38: daily. [facility] 49 [facility] Branch mirtazapine 2020-0 Yes 15mg Take 15 mg [facility] 15 mg 7-14 by mouth ity of tablet 09:38: at [place] [address] bedtime. [facility] mesalamine 2020-0 Yes 1.5g Take 1.5 g U nivers 0.375 gram 7-14 by mouth ity o f 24 hr 09:38: daily. [place] [facility] 49 [facility] mirtazapine 2020-0 Yes 15mg Take 15 mg [facility] 15 mg 7-14 by mouth ity of tablet 09:38: at [place] [address] bedtime. [facility] mesalamine 2020-0 Yes 1.5g Take 1.5 g U nivers 0.375 gram 7-14 by mouth ity o f 24 hr 09:38: daily. [facility] 49 [facility] Branch mirtazapine 2020-0 Yes 15mg Take 15 mg [facility] 15 mg 7-14 by mouth ity of tablet 09:38: at [place] [address] bedtime. [facility] mesalamine 2020-0 Yes 1.5g Take 1.5 g U nivers 0.375 gram 7-14 by mouth ity o f 24 hr 09:38: daily. [facility] 49 [facility] Branch mirtazapine 2020-0 Yes 15mg Take 15 mg [facility] 15 mg 7-14 by mouth ity of tablet 09:38: at [place] [address] bedtime. [facility] [place] mesalamine 2020-0 Yes 1.5g Take 1.5 g U nivers 0.375 gram 7-14 by mouth ity o f 24 hr 09:38: daily. [facility] 49 [facility] Branch mirtazapine 2020-0 Yes 15mg Take 15 mg [facility] 15 mg 7-14 by mouth ity of tablet 09:38: at [place] [address] bedtime. [facility] [place] mesalamine 2020-0 Yes 1.5g Take 1.5 g U nivers 0.375 gram 7-14 by mouth ity o f 24 hr 09:38: daily. [facility] 49 [facility] Branch mirtazapine 2020-0 Yes 15mg Take 15 mg [facility] 15 mg 7-14 by mouth ity of tablet 09:38: at [place] [address] bedtime. [facility] [place] mesalamine 2020-0 Yes 1.5g Take 1.5 g U nivers 0.375 gram 7-14 by mouth ity o f 24 hr 09:38: daily. [facility] 49 [facility] Branch mirtazapine 2020-0 Yes 15mg Take 15 mg [facility] 15 mg 7-14 by mouth ity of tablet 09:38: at [place] [address] bedtime. [facility] mesalamine 2020-0 Yes 1.5g Take 1.5 g U nivers 0.375 gram 7-14 by mouth ity o f 24 hr 09:38: daily. [place] [facility] 49 [facility] mirtazapine 2020-0 Yes 15mg Take 15 mg [facility] 15 mg 7-14 by mouth ity of tablet 09:38: at [place] [address] bedtime. [facility] mesalamine 2020-0 Yes 1.5g Take 1.5 g U nivers 0.375 gram 7-14 by mouth ity o f 24 hr 09:38: daily. [facility] 49 [facility] Branch mirtazapine 2020-0 Yes 15mg Take 15 mg [facility] 15 mg 7-14 by mouth ity of tablet 09:38: at [place] [address] bedtime. [facility] mesalamine 2020-0 Yes 1.5g Take 1.5 g U nivers 0.375 gram 7-14 by mouth ity o f 24 hr 09:38: daily. [facility] 49 [facility] Branch mirtazapine 2020-0 Yes 15mg Take 15 mg [facility] 15 mg 7-14 by mouth ity of tablet 09:38: at [place] [address] bedtime. [facility] mesalamine 2020-0 Yes 1.5g Take 1.5 g U nivers 0.375 gram 7-14 by mouth ity o f 24 hr 09:38: daily. [facility] 49 [facility] Branch mirtazapine 2020-0 Yes 15mg Take 15 mg [facility] 15 mg 7-14 by mouth ity of tablet 09:38: at [place] [address] bedtime. [facility] mesalamine 2020-0 Yes 1.5g Take 1.5 g U nivers 0.375 gram 7-14 by mouth ity o f 24 hr 09:38: daily. [facility] 49 [facility] Branch mirtazapine 2020-0 Yes 15mg Take 15 mg [facility] 15 mg 7-14 by mouth ity of tablet 09:38: at [place] [address] bedtime. [facility] mesalamine 2020-0 Yes 1.5g Take 1.5 g U nivers 0.375 gram 7-14 by mouth ity o f 24 hr 09:38: daily. [facility] 49 [facility] Branch mirtazapine 2020-0 Yes 15mg Take 15 mg [facility] 15 mg 7-14 by mouth ity of tablet 09:38: at [place] [address] bedtime. [facility] mesalamine 2020-0 Yes 1.5g Take 1.5 g U nivers 0.375 gram 7-14 by mouth ity o f 24 hr 09:38: daily. [place] [facility] 49 [facility] mirtazapine 2020-0 Yes 15mg Take 15 mg [facility] 15 mg 7-14 by mouth ity of tablet 09:38: at [place] [address] bedtime. [facility] mesalamine 2020-0 Yes 1.5g Take 1.5 g U nivers 0.375 gram 7-14 by mouth ity o f 24 hr 09:38: daily. [facility] 49 [facility] Branch mirtazapine 2020-0 Yes 15mg Take 15 mg [facility] 15 mg 7-14 by mouth ity of tablet 09:38: at [place] [address] bedtime. Medical [facility] mesalamine 2020-0 Yes 1.5g Take 1.5 g U nivers 0.375 gram 7-14 by mouth ity o f 24 hr 09:38: daily. [facility] 49 [facility] Branch mirtazapine 2020-0 Yes 15mg Take 15 mg [facility] 15 mg 7-14 by mouth ity of tablet 09:38: at [place] [address] bedtime. [facility] mesalamine 2020-0 Yes 1.5g Take 1.5 g U nivers 0.375 gram 7-14 by mouth ity o f 24 hr 09:38: daily. [facility] 49 [facility] Branch mirtazapine 2020-0 Yes 15mg Take 15 mg [facility] 15 mg 7-14 by mouth ity of tablet 09:38: at [place] [address] bedtime. [facility] mesalamine 2020-0 Yes 1.5g Take 1.5 g U nivers 0.375 gram 7-14 by mouth ity o f 24 hr 09:38: daily. [facility] 49 [facility] Branch mirtazapine 2020-0 Yes 15mg Take 15 mg [facility] 15 mg 7-14 by mouth ity of tablet 09:38: at [place] [address] bedtime. [facility] mesalamine 2020-0 Yes 1.5g Take 1.5 g U nivers 0.375 gram 7-14 by mouth ity o f 24 hr 09:38: daily. [facility] 49 [facility] Branch mirtazapine 2020-0 Yes 15mg Take 15 mg [facility] 15 mg 7-14 by mouth ity of tablet 09:38: at [place] [address] bedtime. [facility] mesalamine 2020-0 Yes 1.5g Take 1.5 g U nivers 0.375 gram 7-14 by mouth ity o f 24 hr 09:38: daily. [facility] 49 [facility] Branch predniSONE 1-0 Yes 10mg Take 10 mg U nivers 10 mg 6-22 by mouth ity of tablet 00:00: daily. [place] 00 [facility] Branch predniSONE 2021-0 Yes 10mg Take 10 mg U nivers 10 mg 6-22 by mouth ity of tablet 00:00: daily. [place] [facility] predniSONE 2021-0 Yes 10mg Take 10 mg U nivers 10 mg 6-22 by mouth ity of tablet 00:00: daily. [place] [facility] predniSONE 2021-0 Yes 10mg Take 10 mg U nivers 10 mg 6-22 by mouth ity of tablet 00:00: daily. [place] [facility] predniSONE 2021-0 Yes 10mg Take 10 mg U nivers 10 mg 6-22 by mouth ity of tablet 00:00: daily. [place] [facility] predniSONE 2021-0 Yes 10mg Take 10 mg U nivers 10 mg 6-22 by mouth ity of tablet 00:00: daily. [place] [facility] predniSONE 2021-0 Yes 10mg Take 10 mg U nivers 10 mg 6-22 by mouth ity of tablet 00:00: daily. [place] [facility] predniSONE 2021-0 Yes 10mg Take 10 mg U nivers 10 mg 6-22 by mouth ity of tablet 00:00: daily. [place] [facility] predniSONE 2021-0 Yes 10mg Take 10 mg U nivers 10 mg 6-22 by mouth ity of tablet 00:00: daily. [place] [facility] predniSONE 2021-0 Yes 10mg Take 10 mg U nivers 10 mg 6-22 by mouth ity of tablet 00:00: daily. [place] [facility] predniSONE 2021-0 Yes 10mg Take 10 mg U nivers 10 mg 6-22 by mouth ity of tablet 00:00: daily. [place] [facility] predniSONE 2021-0 Yes 10mg Take 10 mg U nivers 10 mg 6-22 by mouth ity of tablet 00:00: daily. [place] [facility] predniSONE 2021-0 Yes 10mg Take 10 mg U nivers 10 mg 6-22 by mouth ity of tablet 00:00: daily. [place] [facility] predniSONE 2021-0 Yes 10mg Take 10 mg U nivers 10 mg 6-22 by mouth ity of tablet 00:00: daily. [place] [facility] predniSONE 2021-0 Yes 10mg Take 10 mg U nivers 10 mg 6-22 by mouth ity of tablet 00:00: daily. [place] [facility] predniSONE 2021-0 Yes 10mg Take 10 mg U nivers 10 mg 6-22 by mouth ity of tablet 00:00: daily. [place] [facility] predniSONE 2021-0 Yes 10mg Take 10 mg U nivers 10 mg 6-22 by mouth ity of tablet 00:00: daily. [place] [facility] predniSONE 2021-0 Yes 10mg Take 10 mg U nivers 10 mg 6-22 by mouth ity of tablet 00:00: daily. [address] predniSONE 2021-0 Yes 10mg Take 10 mg U nivers 10 mg 6-22 by mouth ity of tablet 00:00: daily. [place] [facility] predniSONE 2021-0 Yes 10mg Take 10 mg U nivers 10 mg 6-22 by mouth ity of tablet 00:00: daily. [place] [facility] predniSONE 2021-0 Yes 10mg Take 10 mg U nivers 10 mg 6-22 by mouth ity of tablet 00:00: daily. [address] predniSONE 2021-0 Yes 10mg Take 10 mg U nivers 10 mg 6-22 by mouth ity of tablet 00:00: daily. [address] predniSONE 2021-0 Yes 10mg Take 10 mg U nivers 10 mg 6-22 by mouth ity of tablet 00:00: daily. [address] predniSONE 2021-0 Yes 10mg Take 10 mg U nivers 10 mg 6-22 by mouth ity of tablet 00:00: daily. [address] predniSONE 2021-0 Yes 10mg Take 10 mg U nivers 10 mg 6-22 by mouth ity of tablet 00:00: daily. [address] predniSONE 2021-0 Yes 10mg Take 10 mg U nivers 10 mg 6-22 by mouth ity of tablet 00:00: daily. [address] predniSONE 2021-0 Yes 10mg Take 10 mg U nivers 10 mg 6-22 by mouth ity of tablet 00:00: daily. [place] [facility] predniSONE 2021-0 Yes 10mg Take 10 mg U nivers 10 mg 6-22 by mouth ity of tablet 00:00: daily. [place] [facility] predniSONE 2021-0 Yes 10mg Take 10 mg U nivers 10 mg 6-22 by mouth ity of tablet 00:00: daily. [place] [facility] predniSONE 2021-0 Yes 10mg Take 10 mg U nivers 10 mg 6-22 by mouth ity of tablet 00:00: daily. [place] [facility] predniSONE 2021-0 Yes 10mg Take 10 mg U nivers 10 mg 6-22 by mouth ity of tablet 00:00: daily. [place] [facility] predniSONE 2021-0 Yes 10mg Take 10 mg U nivers 10 mg 6-22 by mouth ity of tablet 00:00: daily. [place] [facility] predniSONE 2021-0 Yes 10mg Take 10 mg U nivers 10 mg 6-22 by mouth ity of tablet 00:00: daily. [place] [facility] predniSONE 2021-0 Yes 10mg Take 10 mg U nivers 10 mg 6-22 by mouth ity of tablet 00:00: daily. [place] [facility] predniSONE 2021-0 Yes 10mg Take 10 mg U nivers 10 mg 6-22 by mouth ity of tablet 00:00: daily. [place] [facility] predniSONE 2021-0 Yes 10mg Take 10 mg U nivers 10 mg 6-22 by mouth ity of tablet 00:00: daily. [place] [facility] predniSONE 2021-0 Yes 10mg Take 10 mg U nivers 10 mg 6-22 by mouth ity of tablet 00:00: daily. [place] [facility] predniSONE 2021-0 Yes 10mg Take 10 mg U nivers 10 mg 6-22 by mouth ity of tablet 00:00: daily. [place] [facility] predniSONE 2021-0 Yes 10mg Take 10 mg U nivers 10 mg 6-22 by mouth ity of tablet 00:00: daily. [place] [facility] predniSONE 2021-0 Yes 10mg Take 10 mg U nivers 10 mg 6-22 by mouth ity of tablet 00:00: daily. [address] predniSONE 2021-0 Yes 10mg Take 10 mg U nivers 10 mg 6-22 by mouth ity of tablet 00:00: daily. [address] predniSONE 2021-0 Yes 10mg Take 10 mg U nivers 10 mg 6-22 by mouth ity of tablet 00:00: daily. [place] [facility] predniSONE 2021-0 Yes 10mg Take 10 mg U nivers 10 mg 6-22 by mouth ity of tablet 00:00: daily. [address] predniSONE 2021-0 Yes 10mg Take 10 mg U nivers 10 mg 6-22 by mouth ity of tablet 00:00: daily. [address] predniSONE 2021-0 Yes 10mg Take 10 mg U nivers 10 mg 6-22 by mouth ity of tablet 00:00: daily. [address] predniSONE 2021-0 Yes 10mg Take 10 mg U nivers 10 mg 6-22 by mouth ity of tablet 00:00: daily. [address] predniSONE 1-0 Yes prednisone [facility] (DELTASONE) 6-22 10 mg [facility] 10 MG 00:00: tablet of tablet 00 TAKE 1 Medicin TABLET BY e MOUTH EVERY DAY predniSONE 2020-0 Yes prednisone [facility] [place] (DELTASONE) 6-22 10 mg [facility] 10 MG 00:00: tablet of tablet 00 TAKE 1 Medicin TABLET BY e MOUTH EVERY DAY predniSONE 2020-0 Yes prednisone [place] (DELTASONE) 6-22 10 mg [facility] 10 MG 00:00: tablet of tablet 00 TAKE 1 Medicin TABLET BY e MOUTH EVERY DAY predniSONE 2020-0 Yes prednisone [place] (DELTASONE) 6-22 10 mg [facility] 10 MG 00:00: tablet of tablet 00 TAKE 1 Medicin TABLET BY e MOUTH EVERY DAY spironolact 2020-0 Yes 25mg Take 25 mg [facility] one 25 mg 6-08 by mouth ity of tablet 00:00: daily. [address] spironolact 2020-0 Yes 25mg Take 25 mg [facility] one 25 mg 6-08 by mouth ity of tablet 00:00: daily. [address] spironolact 2020-0 Yes 25mg Take 25 mg [facility] one 25 mg 6-08 by mouth ity of tablet 00:00: daily. [address] spironolact 2020-0 Yes 25mg Take 25 mg [facility] one 25 mg 6-08 by mouth ity of tablet 00:00: daily. [address] spironolact 2020-0 Yes 25mg Take 25 mg [facility] one 25 mg 6-08 by mouth ity of tablet 00:00: daily. [place] [facility] spironolact 2020-0 Yes 25mg Take 25 mg [facility] one 25 mg 6-08 by mouth ity of tablet 00:00: daily. [place] [facility] spironolact 2020-0 Yes 25mg Take 25 mg [facility] one 25 mg 6-08 by mouth ity of tablet 00:00: daily. [place] [facility] spironolact 2020-0 Yes 25mg Take 25 mg [facility] one 25 mg 6-08 by mouth ity of tablet 00:00: daily. [place] [facility] spironolact 2020-0 Yes 25mg Take 25 mg [facility] one 25 mg 6-08 by mouth ity of tablet 00:00: daily. [place] [facility] spironolact 2020-0 Yes 25mg Take 25 mg [facility] one 25 mg 6-08 by mouth ity of tablet 00:00: daily. [place] [facility] spironolact 2020-0 Yes 25mg Take 25 mg [facility] one 25 mg 6-08 by mouth ity of tablet 00:00: daily. [place] [facility] spironolact 2020-0 Yes 25mg Take 25 mg [facility] one 25 mg 6-08 by mouth ity of tablet 00:00: daily. [place] [facility] spironolact 2020-0 Yes 25mg Take 25 mg [facility] one 25 mg 6-08 by mouth ity of tablet 00:00: daily. [place] [facility] spironolact 2020-0 Yes 25mg Take 25 mg [facility] one 25 mg 6-08 by mouth ity of tablet 00:00: daily. [place] [facility] spironolact 2020-0 Yes 25mg Take 25 mg [facility] one 25 mg 6-08 by mouth ity of tablet 00:00: daily. [place] [facility] spironolact 2020-0 Yes 25mg Take 25 mg [facility] one 25 mg 6-08 by mouth ity of tablet 00:00: daily. [place] [facility] spironolact 2020-0 Yes 25mg Take 25 mg [facility] one 25 mg 6-08 by mouth ity of tablet 00:00: daily. [place] [facility] spironolact 2020-0 Yes 25mg Take 25 mg [facility] one 25 mg 6-08 by mouth ity of tablet 00:00: daily. [place] [facility] spironolact 1-0 Yes 25mg Take 25 mg [facility] one 25 mg 6-08 by mouth ity of tablet 00:00: daily. [place] [facility] spironolact 2020-0 Yes 25mg Take 25 mg [facility] one 25 mg 6-08 by mouth ity of tablet 00:00: daily. [place] [facility] spironolact 2020-0 Yes 25mg Take 25 mg [facility] one 25 mg 6-08 by mouth ity of tablet 00:00: daily. [place] [facility] spironolact 2020-0 Yes 25mg Take 25 mg [facility] one 25 mg 6-08 by mouth ity of tablet 00:00: daily. [place] [facility] spironolact 2020-0 Yes 25mg Take 25 mg [facility] one 25 mg 6-08 by mouth ity of tablet 00:00: daily. [place] [facility] spironolact 2020-0 Yes 25mg Take 25 mg [facility] one 25 mg 6-08 by mouth ity of tablet 00:00: daily. [place] [facility] spironolact 2020-0 Yes 25mg Take 25 mg [facility] one 25 mg 6-08 by mouth ity of tablet 00:00: daily. [place] [facility] spironolact 2020-0 Yes 25mg Take 25 mg [facility] one 25 mg 6-08 by mouth ity of tablet 00:00: daily. [place] [facility] spironolact 2020-0 Yes 25mg Take 25 mg [facility] one 25 mg 6-08 by mouth ity of tablet 00:00: daily. [place] [facility] spironolact 2020-0 Yes 25mg Take 25 mg [facility] one 25 mg 6-08 by mouth ity of tablet 00:00: daily. [place] [facility] spironolact 2020-0 Yes 25mg Take 25 mg [facility] one 25 mg 6-08 by mouth ity of tablet 00:00: daily. [place] [facility] spironolact 2020-0 Yes 25mg Take 25 mg [facility] one 25 mg 6-08 by mouth ity of tablet 00:00: daily. [place] [facility] spironolact 2020-0 Yes 25mg Take 25 mg [facility] one 25 mg 6-08 by mouth ity of tablet 00:00: daily. [place] [facility] spironolact 2020-0 Yes 25mg Take 25 mg [facility] one 25 mg 6-08 by mouth ity of tablet 00:00: daily. [place] [facility] spironolact 2020-0 Yes 25mg Take 25 mg Univers one 25 mg 6-08 by mouth ity of tablet 00:00: daily. [place] [facility] spironolact 2020-0 Yes 25mg Take 25 mg Univers one 25 mg 6-08 by mouth ity of tablet 00:00: daily. [place] [facility] spironolact 2020-0 Yes 25mg Take 25 mg Univers one 25 mg 6-08 by mouth ity of tablet 00:00: daily. [place] [facility] spironolact 2020-0 Yes 25mg Take 25 mg Univers one 25 mg 6-08 by mouth ity of tablet 00:00: daily. [place] [facility] spironolact 2020-0 Yes 25mg Take 25 mg [facility] one 25 mg 6-08 by mouth ity of tablet 00:00: daily. [place] [facility] spironolact 2020-0 Yes 25mg Take 25 mg [facility] one 25 mg 6-08 by mouth ity of tablet 00:00: daily. [place] [facility] spironolact 2020-0 Yes 25mg Take 25 mg [facility] one 25 mg 6-08 by mouth ity of tablet 00:00: daily. [place] [facility] spironolact 2020-0 Yes 25mg Take 25 mg [facility] one 25 mg 6-08 by mouth ity of tablet 00:00: daily. [place] [facility] spironolact 2020-0 Yes 25mg Take 25 mg [facility] one 25 mg 6-08 by mouth ity of tablet 00:00: daily. [place] [facility] spironolact 2020-0 Yes 25mg Take 25 mg [facility] one 25 mg 6-08 by mouth ity of tablet 00:00: daily. [place] [facility] spironolact 2020-0 Yes 25mg Take 25 mg [facility] one 25 mg 6-08 by mouth ity of tablet 00:00: daily. [place] [facility] spironolact 2020-0 Yes 25mg Take 25 mg [facility] one 25 mg 6-08 by mouth ity of tablet 00:00: daily. [place] [facility] spironolact 2020-0 Yes 25mg Take 25 mg [facility] one 25 mg 6-08 by mouth ity of tablet 00:00: daily. [place] [address] [facility] Branch spironolact 2021-0 Yes 25mg Take 25 mg [facility] one 25 mg 6-08 by mouth ity of tablet 00:00: daily. [place] [address] Medical Branch spironolact 2021-0 Yes 25mg Take 25 mg [place] one 6-08 by mouth. [place] (ALDACTONE) 00:00: of 25 MG 00 Medicin tablet e spironolact 2021-0 Yes 25mg Take [address] [facility] one 6-08 by mouth. [place] (ALDACTONE) 00:00: of 25 MG 00 Medicin tablet e spironolact 2021-0 Yes 25mg Take [address] [facility] one 6-08 by mouth. [place] (ALDACTONE) 00:00: of 25 MG 00 Medicin tablet e neomycin-po 2021-0 Yes [id number] 3[drp] Place 3 Univers lymyxin-hyd 4-14 Drops in ity of rocortisone 00:00: left ear 4 [place] 3.5-000- 00 (four) Medica l 1 times Branch mg/mL-unit/ daily. mL-% otic susp neomycin-po 2021-0 Yes [id number] 3[drp] Place 3 Univers lymyxin-hyd 4-14 Drops in ity of rocortisone 00:00: left ear 4 [place] 3.5-,000- 00 (four) Medica l 1 times Branch mg/mL-unit/ daily. mL-% otic susp neomycin-po 2021-0 Yes [id number] 3[drp] Place 3 [facility] lymyxin-hyd 4-14 Drops in ity of rocortisone 00:00: left ear 4 [place] 3.5-,000- 00 (four) Medica l 1 times Branch mg/mL-unit/ daily. mL-% otic susp neomycin-po 2021-0 Yes [id number] 3[drp] Place 3 [facility] lymyxin-hyd 4-14 Drops in ity of rocortisone 00:00: left ear 4 [place] 3.5-,000- 00 (four) Medica l 1 times Branch mg/mL-unit/ daily. mL-% otic susp neomycin-po 2021-0 Yes [id number] 3[drp] Place 3 [facility] lymyxin-hyd 4-14 Drops in ity of rocortisone 00:00: left ear 4 [place] 3.5-10,000- 00 (four) Medica l 1 times Branch mg/mL-unit/ daily. mL-% otic susp neomycin-po 2021-0 Yes [id number] 3[drp] Place 3 Univers lymyxin-hyd 4-14 Drops in ity of rocortisone 00:00: left ear 4 [place] 3.5-000 (four) Medica l 1 times Branch mg/mL-unit/ daily. mL-% otic susp neomycin-po 2021-0 Yes [id number] 3[drp] Place 3 Univers lymyxin-hyd 4-14 Drops in ity of rocortisone 00:00: left ear 4 [place] 3.5- (four) Medica l 1 times Branch mg/mL-unit/ daily. mL-% otic susp neomycin-po 2021-0 Yes [id number] 3[drp] Place 3 Univers lymyxin-hyd 4-14 Drops in ity of rocortisone 00:00: left ear 4 [place] 3.5 (four) Medica l 1 times Branch mg/mL-unit/ daily. mL-% otic susp neomycin-po 2021-0 Yes [id number] 3[drp] Place 3 Univers lymyxin-hyd 4-14 Drops in ity of rocortisone 00:00: left ear 4 [place] 3.5- (four) Medica l 1 times Branch mg/mL-unit/ daily. mL-% otic susp neomycin-po 2021-0 Yes [id number] 3[drp] Place 3 Univers lymyxin-hyd 4-14 Drops in ity of rocortisone 00:00: left ear 4 [place] 3.5- (four) Medica l 1 times Branch mg/mL-unit/ daily. mL-% otic susp neomycin-po 2021-0 Yes [id number] 3[drp] Place 3 Univers lymyxin-hyd 4-14 Drops in ity of rocortisone 00:00: left ear 4 [place] 3.5- (four) Medica l 1 times Branch mg/mL-unit/ daily. mL-% otic susp neomycin-po 2021-0 Yes [id number] 3[drp] Place 3 Univers lymyxin-hyd 4-14 Drops in ity of rocortisone 00:00: left ear 4 [place] 3.5-10,000- 00 (four) Medica l 1 times Branch mg/mL-unit/ daily. mL-% otic susp neomycin-po 2021-0 Yes [id number] 3[drp] Place 3 Univers lymyxin-hyd 4-14 Drops in ity of rocortisone 00:00: left ear 4 [place] 3.5-10,000- 00 (four) Medica l 1 times Branch mg/mL-unit/ daily. mL-% otic susp neomycin-po 2021-0 Yes [id number] 3[drp] Place 3 Univers lymyxin-hyd 4-14 Drops in ity of rocortisone 00:00: left ear 4 [place] 3.5-10,000- 00 (four) Medica l 1 times Branch mg/mL-unit/ daily. mL-% otic susp neomycin-po 2021-0 Yes [id number] 3[drp] Place 3 Univers lymyxin-hyd 4-14 Drops in ity of rocortisone 00:00: left ear 4 [place] 3.5-10,000- 00 (four) Medica l 1 times Branch mg/mL-unit/ daily. mL-% otic susp neomycin-po 2021-0 Yes [id number] 3[drp] Place 3 Univers lymyxin-hyd 4-14 Drops in ity of rocortisone 00:00: left ear 4 [place] 3.5-10,000- 00 (four) Medica l 1 times Branch mg/mL-unit/ daily. mL-% otic susp neomycin-po 2021-0 Yes [id number] 3[drp] Place 3 Univers lymyxin-hyd 4-14 Drops in ity of rocortisone 00:00: left ear 4 [place] 3.5-10,000- 00 (four) Medica l 1 times Branch mg/mL-unit/ daily. mL-% otic susp neomycin-po 2021-0 Yes [id number] 3[drp] Place 3 Univers lymyxin-hyd 4-14 Drops in ity of rocortisone 00:00: left ear 4 [place] 3.5-10,000- 00 (four) Medica l 1 times Branch mg/mL-unit/ daily. mL-% otic susp neomycin-po 2021-0 Yes [id number] 3[drp] Place 3 Univers lymyxin-hyd 4-14 Drops in ity of rocortisone 00:00: left ear 4 [place] 3.5-10,000- 00 (four) Medica l 1 times Branch mg/mL-unit/ daily. mL-% otic susp neomycin-po 2021-0 Yes [id number] 3[drp] Place 3 Univers lymyxin-hyd 4-14 Drops in ity of rocortisone 00:00: left ear 4 [place] 3.5-,000- (four) Medica l 1 times Branch mg/mL-unit/ daily. mL-% otic susp neomycin-po 2021-0 Yes [id number] 3[drp] Place 3 Univers lymyxin-hyd 4-14 Drops in ity of rocortisone 00:00: left ear 4 [place] 3.5-10000- (four) Medica l 1 times Branch mg/mL-unit/ daily. mL-% otic susp neomycin-po 2021-0 Yes [id number] 3[drp] Place 3 Univers lymyxin-hyd 4-14 Drops in ity of rocortisone 00:00: left ear 4 [place] 3.5-000 (four) Medica l 1 times Branch mg/mL-unit/ daily. mL-% otic susp neomycin-po 2021-0 Yes [id number] 3[drp] Place 3 Univers lymyxin-hyd 4-14 Drops in ity of rocortisone 00:00: left ear 4 [place] 3.5-000 (four) Medica l 1 times Branch mg/mL-unit/ daily. mL-% otic susp neomycin-po 2021-0 Yes [id number] 3[drp] Place 3 Univers lymyxin-hyd 4-14 Drops in ity of rocortisone 00:00: left ear 4 [place] 3.5-,000- 00 (four) Medica l 1 times Branch mg/mL-unit/ daily. mL-% otic susp neomycin-po 2021-0 Yes [id number] 3[drp] Place 3 Univers lymyxin-hyd 4-14 Drops in ity of rocortisone 00:00: left ear 4 [place] 3.5-000- 00 (four) Medica l 1 times Branch mg/mL-unit/ daily. mL-% otic susp neomycin-po 2021-0 Yes [id number] 3[drp] Place 3 Univers lymyxin-hyd 4-14 Drops in ity of rocortisone 00:00: left ear 4 [place] 3.5-000- 00 (four) Medica l 1 times Branch mg/mL-unit/ daily. mL-% otic susp neomycin-po 2021-0 Yes [id number] 3[drp] Place 3 [facility] lymyxin-hyd 4-14 Drops in ity of rocortisone 00:00: left ear 4 [place] 3.5-000- (four) Medica l 1 times Branch mg/mL-unit/ daily. mL-% otic susp neomycin-po 2021-0 Yes [id number] 3[drp] Place 3 [facility] lymyxin-hyd 4-14 Drops in ity of rocortisone 00:00: left ear 4 [place] 3.5-000 (four) Medica l 1 times Branch mg/mL-unit/ daily. mL-% otic susp neomycin-po 2021-0 Yes [id number] 3[drp] Place 3 Univers lymyxin-hyd 4-14 Drops in ity of rocortisone 00:00: left ear 4 [place] 3.5- (four) Medica l 1 times Branch mg/mL-unit/ daily. mL-% otic susp neomycin-po 2021-0 Yes [id number] 3[drp] Place 3 [facility] lymyxin-hyd 4-14 Drops in ity of rocortisone 00:00: left ear 4 [place] 3.5- (four) Medica l 1 times Branch mg/mL-unit/ daily. mL-% otic susp neomycin-po 2021-0 Yes [id number] 3[drp] Place 3 [facility] lymyxin-hyd 4-14 Drops in ity of rocortisone 00:00: left ear 4 [place] 3.5-10,000 (four) Medica l 1 times Branch mg/mL-unit/ daily. mL-% otic susp neomycin-po 2021-0 Yes [id number] 3[drp] Place 3 [facility] lymyxin-hyd 4-14 Drops in ity of rocortisone 00:00: left ear 4 [place] 3.- (four) Medica l 1 times Branch mg/mL-unit/ daily. mL-% otic susp neomycin-po 2021-0 Yes [id number] 3[drp] Place 3 [facility] lymyxin-hyd 4-14 Drops in ity of rocortisone 00:00: left ear 4 [place] 3.5 (four) Medica l 1 times Branch mg/mL-unit/ daily. mL-% otic susp neomycin-po 2021-0 Yes [id number] 3[drp] Place 3 [facility] lymyxin-hyd 4-14 Drops in ity of rocortisone 00:00: left ear 4 [place] 3.5 (four) Medica l 1 times Branch mg/mL-unit/ daily. mL-% otic susp neomycin-po 2021-0 Yes [id number] 3[drp] Place 3 [facility] lymyxin-hyd 4-14 Drops in ity of rocortisone 00:00: left ear 4 [place] 3. (four) Medica l 1 times Branch mg/mL-unit/ daily. mL-% otic susp neomycin-po 2021-0 Yes [id number] 3[drp] Place 3 [facility] lymyxin-hyd 4-14 Drops in ity of rocortisone 00:00: left ear 4 [place] 3. (four) Medica l 1 times Branch mg/mL-unit/ daily. mL-% otic susp neomycin-po 2021-0 Yes [id number] 3[drp] Place 3 [facility] lymyxin-hyd 4-14 Drops in ity of rocortisone 00:00: left ear 4 [place] 3.5 (four) Medica l 1 times Branch mg/mL-unit/ daily. mL-% otic susp HYDROcodone 2020-0 Yes chronic 1{tbl} Take 1 Univers -acetaminop 4-14 pain tablet by ity of hen 7.5-325 00:00: mouth [place] mg per 00 every 6 Medical tablet (six) Branch hours as needed for Pain. Indication s: chronic pain hydroCHLORO 2020-0 Yes Essential 12.5mg Take 1 Univers thiazide 4-14 hypertensio capsule by ity of 12.5 mg 00:00: n mouth [place] capsule 00 daily. Medical Branch neomycin-po Yes Other 3[drp] Place 3 Univers lymyxin-hyd 4-14 infective Drops in ity of rocortisone 00:00: acute left ear 4 [place] 3.5000- otitis (four) Medi mari 1 externa of times Branch mg/mL-unit/ left ear daily. mL-% otic susp Neomycin-Po Yes 3[drp] Place 3 [facility] [place] lymyxin-HC 4-14 Drops in [place] 3.5-58317-3 00:00: ear(s). of SUSP 00 Medicin e Neomycin-Po Yes 3[drp] Place 3 [facility] [place] lymyxin-HC 4-14 Drops in [place] 3.5-65228-4 00:00: ear(s). of SUSP 00 Medicin e Neomycin-Po Yes 3[drp] Place 3 [facility] [place] lymyxin-HC 4-14 Drops in [place] 3.5-97853-8 00:00: ear(s). of SUSP Medicin e neomycin-po 2021- No [id number] 3[drp] Place 3 [facility] lymyxin-hyd 4-14 12-21 Drops in ity of rocortisone 00:00: 00:00 left ear 4 [place] 3.5- 00 :00 (four) Medica l 1 times Branch mg/mL-unit/ daily. mL-% otic susp neomycin-po 2021- No [id number] 3[drp] Place 3 [facility] lymyxin-hyd 4-14 12-21 Drops in ity of rocortisone 00:00: 00:00 left ear 4 [place] 3.5,000- 00 :00 (four) Medica l 1 times [...] THE of insulin SKIN EVERY EVENING insulin 2021-0 Yes Uncontrolle 1{each} 1 Each 2 Univers [...] [place] mcg DsDv 00 EVERY DAY [facility] TRELEGY 2019- Yes INHALE 1 Univer s ELLIPTA 2-24 PUFF BY ity of 100-62.5-25 00:00: MOUTH [place] mcg DsDv 00 EVERY DAY [facility] TRELEGY 2020- Yes INHALE 1 Univer s ELLIPTA 2-24 PUFF BY ity of 100-62.5-25 00:00: MOUTH [place] mcg DsDv 00 EVERY DAY Medica Branch TRELEGY 2019- Yes INHALE 1 Univer [...] [place] mcg DsDv 00 EVERY DAY [facility] TRELEGY 2020- Yes INHALE 1 Univer s ELLIPTA 2-24 PUFF BY ity of 100-62.5-25 00:00: MOUTH [place] mcg DsDv 00 EVERY DAY [facility] TRELEGY 2019- Yes INHALE 1 Univer s ELLIPTA 2-24 PUFF BY ity of 100-62.5-25 00:00: MOUTH [place] mcg DsDv 00 EVERY DAY [facility] [place] TRELEGY 2019- Yes INHALE 1 Univer s ELLIPTA 2-24 PUFF BY ity of 100-62.5-25 00:00: MOUTH [place] mcg DsDv 00 EVERY DAY [facility] TRELEGY 2019- Yes INHALE 1 Univer s ELLIPTA 2-24 PUFF BY ity of 100-62.5-25 00:00: MOUTH [place] mcg DsDv 00 EVERY DAY Medica l [place] TRELEGY 2019- Yes INHALE 1 Univer s ELLIPTA 2-24 PUFF BY ity of 100-62.5-25 00:00: MOUTH [place] mcg DsDv 00 EVERY DAY [facility] TRELEGY 2019-11 Yes INHALE 1 Univer s ELLIPTA 2-24 PUFF BY ity of 100-62.5-25 00:00: MOUTH [place] mcg DsDv 00 EVERY DAY [facility] TRELEGY 2019- Yes INHALE 1 Univer s ELLIPTA 2-24 PUFF BY ity of 100-62.5-25 00:00: MOUTH [place] mcg DsDv 00 EVERY DAY [facility] TRELEGY 2019- Yes INHALE 1 Univer s ELLIPTA 2-24 PUFF BY ity of 100-62.5-25 00:00: MOUTH [place] mcg DsDv 00 EVERY DAY [facility] TRELEGY 2019- Yes INHALE 1 Univer s ELLIPTA 2-24 PUFF BY ity of 100-62.5-25 00:00: MOUTH [place] mcg DsDv 00 EVERY DAY [facility]ica [facility] [place] TRELEGY 2019- Yes INHALE 1 Univer s ELLIPTA 2-24 PUFF BY ity of 100-62.5-25 00:00: MOUTH [place] mcg DsDv 00 EVERY DAY [facility]ica [facility] [place] TRELEGY 2019- Yes INHALE 1 Univer s ELLIPTA 2-24 PUFF BY ity of 100-62.5-25 00:00: MOUTH [place] mcg DsDv 00 EVERY DAY [facility]ica [facility] [place] TRELEGY 2019- Yes INHALE 1 Univer s ELLIPTA 2-24 PUFF BY ity of 100-62.5-25 00:00: MOUTH [place] mcg DsDv 00 EVERY DAY [facility] [place] TRELEGY 2020- Yes INHALE 1 Univer s ELLIPTA 2-24 PUFF BY ity of 100-62.5-25 00:00: MOUTH [place] mcg DsDv 00 EVERY DAY [facility] [place] TRELEGY 2020- Yes INHALE 1 Univer s ELLIPTA 2-24 PUFF BY ity of 100-62.5-25 00:00: MOUTH [place] mcg DsDv 00 EVERY DAY [facility] [place] TRELEGY 2019- Yes INHALE 1 Univer s ELLIPTA 2-24 PUFF BY ity of 100-62.5-25 00:00: MOUTH [place] mcg DsDv 00 EVERY DAY [facility] [place] TRELEGY 2019- Yes INHALE 1 Univer s ELLIPTA 2-24 PUFF BY ity of 100-62.5-25 00:00: MOUTH [place] mcg DsDv 00 EVERY DAY [facility] [place] TRELEGY 2020- Yes INHALE 1 Univer s ELLIPTA 2-24 PUFF BY ity of 100-62.5-25 00:00: MOUTH [place] mcg DsDv 00 EVERY DAY [facility] [place] TRELEGY 2019- Yes INHALE 1 Univer s ELLIPTA 2-24 PUFF BY ity of 100-62.5-25 00:00: MOUTH [place] mcg DsDv 00 EVERY DAY Medica [facility] [place] TRELEGY 2020- Yes INHALE 1 Univer s ELLIPTA 2-24 PUFF BY ity of 100-62.5-25 00:00: MOUTH [place] mcg DsDv 00 EVERY DAY [facility] [place] TRELEGY 2020- Yes INHALE 1 Univer s ELLIPTA 2-24 PUFF BY ity of 100-62.5-25 00:00: MOUTH [place] mcg DsDv 00 EVERY DAY [facility] [place] TRELEGY 2020- Yes INHALE 1 Univer s ELLIPTA 2-24 PUFF BY ity of 100-62.5-25 00:00: MOUTH [place] mcg DsDv 00 EVERY DAY [facility] [place] TRELEGY 2020- Yes INHALE 1 Univer s ELLIPTA 2-24 PUFF BY ity of 100-62.5-25 00:00: MOUTH [place] mcg DsDv 00 EVERY DAY [facility] [place] TRELEGY 2020-1 Yes INHALE 1 Univer s ELLIPTA 2-24 PUFF BY ity of 100-62.5-25 00:00: MOUTH [place] mcg DsDv 00 EVERY DAY [facility] [place] TRELEGY 2020-1 Yes INHALE 1 Univer s ELLIPTA 2-24 PUFF BY ity of 100-62.5-25 00:00: MOUTH [place] mcg DsDv 00 EVERY DAY [facility] [place] TRELEGY 2020-1 Yes INHALE 1 Univer s ELLIPTA 2-24 PUFF BY ity of 100-62.5-25 00:00: MOUTH [place] mcg DsDv 00 EVERY DAY [facility] [place] TRELEGY 2020-1 Yes INHALE 1 Univer s ELLIPTA 2-24 PUFF BY ity of 100-62.5-25 00:00: MOUTH [place] mcg DsDv 00 [facility] Univer s ELLIPTA 2-24 PUFF BY ity of 100-62.5-25 00:00: MOUTH [place] mcg DsDv 00 [facility] DAY [facility] INHALE 1 Univer s ELLIPTA 2-24 PUFF BY ity of 100-62.5-25 00:00: MOUTH [place] mcg DsDv 00 [facility] Univer s ELLIPTA 2-24 PUFF BY ity of 100-62.5-25 00:00: MOUTH [place] mcg DsDv 00 [facility] DAY [facility] INHALE 1 Univer s ELLIPTA 2-24 PUFF BY ity of 100-62.5-25 00:00: MOUTH [place] mcg DsDv 00 EVERY DAY [facility] [place] TRELEGY 2020-1 Yes INHALE 1 Univer s ELLIPTA 2-24 PUFF BY ity of 100-62.5-25 00:00: MOUTH [place] mcg DsDv 00 EVERY DAY [facility] [place] TRELEGY 2020-1 Yes INHALE 1 Univer s ELLIPTA 2-24 PUFF BY ity of 100-62.5-25 00:00: MOUTH [place] mcg DsDv 00 EVERY DAY [facility] [place] TRELEGY 2020-1 Yes INHALE 1 Univer s [...] 00 as needed. Medical Branch zolpidem 10 2019- Yes 10mg Take 10 mg Univers mg tablet 2-14 by mouth ity of 00:00: at bedtime [place] 00 as needed. Medical Branch zolpidem 10 2019- Yes 10mg [...] D ity of 00:00: [place] 00 [facility] MOTEGRITY 2020- Yes TK 1 T PO Uni vers tablet 1-12 D ity of 00:00: [place] [facility] MOTEGRITY 2020- Yes TK 1 T PO Uni vers tablet 1-12 D ity of 00:00: [place] [facility] MOTEGRITY 2020- Yes TK 1 T PO Uni vers tablet 1-12 D ity of 00:00: [place] [facility] MOTEGRITY 2020- Yes TK 1 T PO Uni vers tablet 1-12 D ity of 00:00: [place] [facility] MOTEGRITY 2020- Yes TK 1 T PO Uni vers tablet 1-12 D ity of 00:00: [place] [facility] MOTEGRITY 2020- Yes TK 1 T PO Uni vers tablet 1-12 D ity of 00:00: [place] [facility] MOTEGRITY 2020- Yes TK 1 T PO Uni vers tablet 1-12 D ity of 00:00: [place] [facility] MOTEGRITY 2020- Yes TK 1 T PO Uni vers tablet 1-12 D ity of 00:00: [place] [facility] MOTEGRITY 2020- Yes TK 1 T PO Uni vers tablet 1-12 D ity of 00:00: [place] [facility] MOTEGRITY 2020- Yes TK 1 T PO Uni vers tablet 1-12 D ity of 00:00: [place] 00 [facility] MOTEGRITY 2020- Yes TK 1 T PO Uni vers tablet 1-12 D ity of 00:00: [place] [facility] MOTEGRITY 2020- Yes TK 1 T PO Uni vers tablet 1-12 D ity of 00:00: [place] 00 [facility] MOTEGRITY 2020- Yes TK 1 T PO Uni vers tablet 1-12 D ity of 00:00: [place] 00 [facility] MOTEGRITY 2020- Yes TK 1 T PO Uni vers tablet 1-12 D ity of 00:00: [place] 00 [facility] MOTEGRITY 2020- Yes TK 1 T PO Uni vers tablet 1-12 D ity of 00:00: [place] 00 [facility] MOTEGRITY 2020- Yes TK 1 T PO [...] 1-12 D ity of 00:00: [place] [facility] MOTEGRITY 2020- Yes TK 1 T [...] 1-12 D ity of 00:00: [place] [facility] MOTEGRITY 2020- Yes TK 1 T [...] D ity of 00:00: [place] 00 [facility] MOTEGRITY 2020- Yes TK 1 T PO Uni vers tablet 1-12 D ity of 00:00: [place] 00 [facility] MOTEGRITY 2020- Yes TK 1 T PO Uni vers tablet 1-12 D ity of 00:00: [place] 00 [facility] MOTEGRITY 2020- Yes TK 1 T PO Uni vers tablet 1-12 D ity of 00:00: Medical Branch MOTEGRITY 2020- Yes TK 1 T PO Uni vers tablet 1-12 D ity of 00:00: Medical Branch MOTEGRITY 2020- Yes TK 1 T PO Uni vers tablet 1-12 D ity of 00:00: [facility] MOTEGRITY 2019-11 Yes TK 1 T PO Uni vers tablet 1-12 D ity of 00:00: [facility] MOTEGRITY 2019- Yes TK 1 T PO Uni vers tablet 1-12 D ity of 00:00: Medical Branch MOTEGRITY 2019-11 Yes TK 1 T PO Uni vers tablet 1-12 D ity of 00:00: [facility] MOTEGRITY 2019-11 Yes TK 1 T PO Uni vers tablet 1-12 D ity of 00:00: [facility] MOTEGRITY 2019-11 Yes TK 1 T PO Uni vers tablet 1-12 D ity of 00:00: [place] [facility] MOTEGRITY 2019-11 Yes TK 1 T PO Uni vers tablet 1-12 D ity of 00:00: [facility] MOTEGRITY 2019-11 Yes TK 1 T PO Uni vers tablet 1-12 D ity of 00:00: [facility] MOTEGRITY 2019-11 Yes TK 1 T PO Uni vers tablet 1-12 D ity of 00:00: [facility] gabapentin 2019-11 Yes Chronic 600mg Take 1 U nivers 600 mg 1-11 bilateral tablet by ity of tablet 00:00: [place] back mouth 3 [place] pain with (three) Medical bilateral times Branch sciatica daily. ondansetron 2020- Yes as needed. Univers 4 mg tablet 1-04 ity of 00:00: [facility] ondansetron 2020- Yes as needed. Univers 4 mg tablet 1-04 ity of 00:00: [facility] ondansetron 2020- Yes as needed. Univers 4 mg tablet 1-04 ity of 00:00: [facility] ondansetron 2020- Yes as needed. Univers 4 mg tablet 1-04 ity of 00:00: [facility] ondansetron 2020- Yes as needed. Univers 4 [...] of 00:: Medical Branch ondansetron 2020- Yes TK 2 TS PO Univers 4 mg tablet 1-04 Q 12 H ity of 00:: Medical Branch diclofenac 2019- Yes [id number] 75mg Take 1 Univers 75 mg EC 0-08 tablet by ity of tablet 00:00: mouth 2 ([facility]) Medical times Branch daily with meals. diclofenac 2019-11 Yes [id number] 75mg Take 1 Univers 75 mg EC 0-08 tablet by ity of tablet 00:00: mouth 2 ([facility]) Medical times Branch daily with meals. diclofenac 2019-11 Yes [id number] 75mg Take 1 Univers 75 mg EC 0-08 tablet by ity of tablet 00:00: mouth 2 [place] (two) Medical times Branch daily with meals. diclofenac 2019-11 Yes [id number] 75mg Take 1 Univers 75 mg EC 0-08 tablet by ity of tablet 00:00: mouth 2 (two) Medical times Branch daily with meals. diclofenac 2019-11 Yes [id number] 75mg Take 1 [facility] 75 mg EC 0-08 tablet by ity of tablet 00:00: mouth 2 [place] (two) Medical times Branch daily with meals. diclofenac 2019-11 Yes [id number] 75mg Take 1 Univers 75 mg EC 0-08 tablet by ity of tablet 00:00: mouth 2 [place] (two) Medical times Branch daily with meals. diclofenac 2019-11 Yes [id number] 75mg Take 1 [facility] 75 mg EC 0-08 tablet by ity of tablet 00:00: mouth (two) Medical times Branch daily with meals. diclofenac 2020-1 Yes [id number] 75mg Take 1 Univers 75 mg EC 0-08 tablet by ity of tablet 00:00: mouth (two) Medical times Branch daily with meals. diclofenac 2020-1 Yes [id number] 75mg Take 1 Univers 75 mg EC 0-08 tablet by ity of tablet 00:00: mouth (two) Medical times Branch daily with meals. diclofenac 2020-1 Yes [id number] 75mg Take 1 [facility] 75 mg EC 0-08 tablet by ity of tablet 00:00: mouth (two) Medical times Branch daily with meals. diclofenac 2020-1 Yes [id number] 75mg Take 1 Univers 75 mg EC 0-08 tablet by ity of tablet 00:00: mouth (two) Medical times Branch daily with meals. diclofenac 2020-1 Yes [id number] 75mg Take 1 [facility] 75 mg EC 0-08 tablet by [facility] tablet 00:00: mouth (two) Medical times [facility] daily with meals. diclofenac 2020- Yes [id number] 75mg Take 1 [facility] 75 mg EC 0-08 tablet by [facility] tablet 00:00: mouth (two) Medical times [facility] daily with meals. diclofenac 2020-1 Yes [id number] 75mg Take 1 [facility] 75 mg EC 0-08 tablet by [facility] tablet 00:00: mouth (two) Medical times [facility] daily with meals. diclofenac 2019-1 Yes [id number] 75mg Take 1 [facility] 75 mg EC 0-08 tablet by [facility] of tablet 00:00: mouth (two) Medical times [facility] daily with meals. diclofenac 2020-1 Yes [id number] 75mg Take 1 [facility] 75 mg EC 0-08 tablet by ity of tablet 00:00: mouth (two) Medical times Branch daily with meals. diclofenac 2020-1 Yes [id number] 75mg Take 1 [facility] 75 mg EC 0-08 tablet by ity of tablet 00:00: mouth (two) Medical times Branch daily with meals. diclofenac 2020-1 Yes [id number] 75mg Take 1 [facility] 75 mg EC 0-08 tablet by ity of tablet 00:00: mouth (two) Medical times Branch daily with meals. diclofenac 2020-1 Yes [id number] 75mg Take 1 [facility] 75 mg EC 0-08 tablet by ity of tablet 00:00: mouth 2 [place] 00 (two) Medical times Branch daily with meals. diclofenac 2019-11 Yes [id number] 75mg Take 1 [facility] 75 mg EC 0-08 tablet by ity of tablet 00:00: mouth 2 [place] 00 (two) Medical times Branch daily with meals. diclofenac 2019-11 Yes [id number] 75mg Take 1 [facility] 75 mg EC 0-08 tablet by ity of tablet 00:00: mouth 2 [place] 00 (two) Medical times Branch daily with meals. diclofenac 2019-11 Yes [id number] 75mg Take 1 [facility] 75 mg EC 0-08 tablet by ity of tablet 00:00: mouth 2 [place] 00 (two) Medical times Branch daily with meals. diclofenac 2019-11 Yes Morbid 75mg Take 1 [facility] vers 75 mg EC 0-08 obesity tablet by ity of tablet 00:00: with body mouth 2 [place] 00 mass index (two) Medical of 50 or times Branch higher daily with meals. diclofenac 2019-11 No [id number] 75mg Take 1 [facility] 75 mg EC 0-08 10-25 tablet by ity o f tablet 00:00: 00:00 mouth 2 [place] 00 :00 (two) Medical times Branch daily with meals. diclofenac 2019-11- No [id number] 75mg Take 1 [facility] 75 mg EC [...] Medical TIMES Branch DAILY CLONIDINE 2020-0 Yes [id number] TAKE 1 [facility] 0.2 mg 8-06 TABLET BY ity of tablet 00:00: MOUTH 00 THREE Medical TIMES Branch DAILY CLONIDINE 2020-0 Yes [id number] TAKE 1 [facility] 0.2 mg 8-06 TABLET BY ity of tablet 00:00: MOUTH 00 THREE Medical TIMES Branch DAILY CLONIDINE 2020-0 Yes [id number] TAKE 1 [facility] 0.2 mg 8-06 TABLET BY ity of tablet 00:00: MOUTH THREE Medical TIMES Branch DAILY CLONIDINE 2020-0 Yes [id number] TAKE 1 [facility] 0.2 mg 8-06 TABLET BY ity of tablet 00:00: MOUTH THREE Medical TIMES Branch DAILY CLONIDINE 2020-0 Yes [id number] TAKE 1 [facility] 0.2 mg 8-06 TABLET BY ity of tablet 00:00: MOUTH THREE Medical TIMES Branch DAILY CLONIDINE 2020-0 Yes [id number] TAKE 1 [facility] 0.2 mg 8-06 TABLET BY ity of tablet 00:00: MOUTH THREE Medical TIMES Branch DAILY CLONIDINE 2020-0 Yes [id number] TAKE 1 [facility] 0.2 mg 8-06 TABLET BY ity of tablet 00:00: MOUTH THREE Medical TIMES Branch DAILY CLONIDINE 2020-0 Yes [id number] TAKE 1 [facility] 0.2 mg 8-06 TABLET BY ity of tablet 00:00: THREE Medical TIMES Branch DAILY CLONIDINE 2020-0 Yes [id number] TAKE 1 [facility] 0.2 mg 8-06 TABLET BY ity of tablet 00:00: MOUTH THREE Medical TIMES Branch DAILY CLONIDINE 2020-0 Yes [id number] TAKE 1 [facility] 0.2 mg 8-06 TABLET BY ity of tablet 00:00: MOUTH THREE Medical TIMES Branch DAILY CLONIDINE 2020-0 Yes [id number] TAKE 1 [facility] 0.2 mg 8-06 TABLET BY ity of tablet 00:00: MOUTH THREE Medical TIMES Branch DAILY CLONIDINE 2020-0 Yes [id number] TAKE 1 [facility] 0.2 mg 8-06 TABLET BY ity of tablet 00:00: MOUTH THREE Medical TIMES Branch DAILY CLONIDINE 2020-0 Yes [id number] TAKE 1 [facility] 0.2 mg 8-06 TABLET BY ity of tablet 00:00: MOUTH THREE Medical TIMES Branch DAILY CLONIDINE 2020-0 Yes [id number] TAKE 1 [facility] 0.2 mg 8-06 TABLET BY ity of tablet 00:00: MOUTH THREE Medical TIMES Branch DAILY CLONIDINE 2020-0 Yes [id number] TAKE 1 [facility] 0.2 mg 8-06 TABLET BY ity of tablet 00:00: MOUTH THREE Medical TIMES Branch DAILY CLONIDINE 2020-0 Yes [id number] TAKE 1 [facility] 0.2 mg 8-06 TABLET BY ity of tablet 00:00: MOUTH THREE Medical TIMES Branch DAILY CLONIDINE 2020-0 Yes [id number] TAKE 1 [facility] 0.2 mg 8-06 TABLET BY ity of tablet 00:00: MOUTH THREE Medical TIMES Branch DAILY CLONIDINE 2020-0 Yes [id number] TAKE 1 [facility] 0.2 mg 8-06 TABLET BY ity of tablet 00:00: THREE Medical TIMES Branch DAILY CLONIDINE 2020-0 Yes [id number] TAKE 1 [facility] 0.2 mg 8-06 TABLET BY ity of tablet 00:00: MOUTH THREE Medical TIMES Branch DAILY CLONIDINE 2020-0 Yes [id number] TAKE 1 [facility] 0.2 mg 8-06 TABLET BY ity of tablet 00:00: THREE Medical TIMES Branch DAILY CLONIDINE 2020-0 Yes [id number] TAKE 1 [facility] 0.2 mg 8-06 TABLET BY ity of tablet 00:00: THREE Medical TIMES Branch DAILY CLONIDINE 2020-0 Yes [id number] TAKE 1 [facility] 0.2 mg 8-06 TABLET BY ity of tablet 00:00: MOUTH THREE Medical TIMES Branch DAILY CLONIDINE 2020-0 Yes [id number] TAKE 1 [facility] 0.2 mg 8-06 TABLET BY ity of tablet 00:00: THREE Medical TIMES Branch DAILY CLONIDINE 2020-0 Yes [id number] TAKE 1 [facility] 0.2 mg 8-06 TABLET BY ity of tablet 00:00: THREE Medical TIMES Branch DAILY CLONIDINE 2020-0 Yes [id number] TAKE 1 [facility] 0.2 mg 8-06 TABLET BY ity of tablet 00:00: THREE Medical TIMES Branch DAILY CLONIDINE 2020-0 Yes [id number] TAKE 1 [facility] 0.2 mg 8-06 TABLET BY ity of tablet 00:00: MOUTH THREE Medical TIMES Branch DAILY CLONIDINE 2020-0 Yes [id number] TAKE 1 [facility] 0.2 mg 8-06 TABLET BY ity of tablet 00:00: THREE Medical TIMES Branch DAILY CLONIDINE 2020-0 Yes [id number] TAKE 1 [facility] 0.2 mg 8-06 TABLET BY ity of tablet 00:00: THREE Medical TIMES Branch DAILY CLONIDINE 2020-0 Yes [id number] TAKE 1 [facility] 0.2 mg 8-06 TABLET BY ity of tablet 00:00: MOUTH [place] 00 THREE Medical TIMES Branch DAILY CLONIDINE 2020-0 Yes [id number] TAKE 1 [facility] 0.2 mg 8-06 TABLET BY ity of tablet 00:00: MOUTH [place] 00 THREE Medical TIMES Branch DAILY CLONIDINE 2020-0 Yes [id number] TAKE 1 [facility] 0.2 mg 8-06 TABLET BY ity of tablet 00:00: MOUTH [place] 00 THREE Medical TIMES Branch DAILY CLONIDINE 2020-0 Yes [id number] TAKE 1 [facility] 0.2 mg 8-06 TABLET BY ity of tablet 00:00: MOUTH [place] 00 THREE Medical TIMES Branch DAILY CLONIDINE 2020-0 Yes [id number] TAKE 1 [facility] 0.2 mg 8-06 TABLET BY ity of tablet 00:00: MOUTH [place] 00 THREE Medical TIMES Branch DAILY CLONIDINE 2020-0 Yes Essential TAKE 1 U nivers 0.2 mg 8-06 hypertensio TABLET BY i ty of tablet 00:00: n MOUTH [place] THREE Medical TIMES Branch DAILY CLONIDINE 2020-0 2021- No [id number] TAKE 1 U nivers 0.2 mg 8-06 11-21 TABLET BY ity of tablet 00:00: 00:00 MOUTH [place] 00 :00 THREE Medical TIMES Branch DAILY CLONIDINE 2020-0 2021- No [id number] TAKE 1 U nivers 0.2 mg 8-06 11-21 TABLET BY ity of tablet 00:00: 00:00 [...] 00 Medical per tablet Branch sulfamethox 2020-0 2023- No TK 1 T PO [facility] azole-trime -11-09 BID ity of thoprim 00:00: 00:00 [place] 800-160 mg 00 :00 Medical per tablet Branch AMITIZA 24 2019-0 [...] mcg capsule 7-06 BID ity of 00:00: [place] [facility] Branch AMITIZA 24 2019-0 Yes TK 1 C PO Un ally mcg capsule -06 BID ity of 00:00: [place] [facility] AMITIZA 24 2019-0 Yes TK 1 C PO Un ally mcg capsule 7-06 BID ity of 00:00: [place] [facility] AMITIZA 24 2020-0 Yes TK 1 C PO Un ally mcg capsule 7-06 BID ity of 00:00: [place] [facility] AMITIZA 24 2019-0 Yes TK 1 C PO Un ally mcg capsule 7- BID ity of 00:00: [place] [facility] AMITIZA 24 2019-0 Yes TK 1 C PO Un ally mcg capsule 7- BID ity of 00:00: [place] [facility] AMITIZA 24 2019-0 Yes TK 1 C PO Un ally mcg capsule 7- BID ity of 00:00: [place] Medical [...] 7- BID ity of 00:00: [place] [facility] AMITIZA 24 2019-0 Yes TK 1 C PO Un ally mcg capsule 7-06 BID ity of 00:00: [place] [facility] AMITIZA 24 2019-0 Yes TK 1 C PO Un ally mcg capsule 7- BID ity of 00:00: [place] Medical [...] mcg capsule 7-06 BID ity of 00:00: 00 Medical Branch XIFAXAN 550 2020-0 Yes as needed. [facility] mg tablet 5-14 ity of 00:00: [place] 00 Medical Branch XIFAXAN 550 2020-0 Yes as needed. [facility] mg tablet 5-14 ity of 00:00: [place] [facility] Branch XIFAXAN 550 2020-0 Yes as needed. [facility] mg tablet 5-14 ity of 00:00: [place] 00 Medical Branch XIFAXAN 550 2020-0 Yes as needed. [facility] mg tablet 5-14 ity of 00:00: [place] 00 Medical Branch XIFAXAN 550 2020-0 Yes [...] mg tablet 5-14 ity of 00:00: [place] [facility] Branch XIFAXAN 550 2020-0 Yes as [...] [facility] mg tablet 5-14 ity of 00:00: [place] [address] Medical Branch XIFAXAN 550 2019-0 Yes Univer s mg tablet 5-14 ity of 00:00: [place] [address] Medical Branch insulin 2019-0 Yes Uncontrolle Take [...] VICTOZA 2020-0 Yes INJECT 1.8 [facility] ers 3-PARTICK 0.6 4-06 MG UNDER ity of mg/0.1 [...] 2 (two) Medical times Branch daily. pantoprazol 2018- Yes 40mg Take 1 [facility] ers e [...] [place] 00 (two) Medical times Branch daily. allopurinol [...] mg 09:53: mouth [place] tablet 14 daily. [facility] Branch ALPRAZolam 2019-0 Yes 2mg Take 2 mg Un ally (XANAX) 8-28 by mouth ity of 0.25 mg 09:53: every 6 [place] tablet 14 (six) Medical hours as Branch needed. allopurinol 2019-0 Yes 100mg Take 100 U nivers (ZYLOPRIM) 8-28 mg by ity of 100 mg 09:53: mouth [place] tablet 14 daily. [facility] Branch ALPRAZolam 2019-0 Yes 2mg Take 2 mg Un ally (XANAX) 8-28 by mouth ity of 0.25 mg 09:53: every 6 [place] tablet 14 (six) Medical hours as Branch needed. allopurinol 2019-0 Yes 100mg Take 100 U nivers (ZYLOPRIM) 8-28 mg by ity of 100 mg 09:53: mouth [place] tablet 14 daily. [facility] Branch ALPRAZolam 2019-0 Yes 2mg Take 2 [...] mg 09:53: mouth [place] tablet 14 daily. [facility] Branch ALPRAZolam 2019-0 Yes 2mg Take 2 [...] mg 09:53: mouth [place] tablet 14 daily. [facility] Branch ALPRAZolam [id number] Yes 2mg Take 2 mg Un ally (XANAX) 8-28 by mouth ity of 0.25 mg 09:53: every 6 [place] tablet 14 (six) Medical hours as Branch needed. allopurinol 2019-0 Yes 100mg Take 100 U nivers (ZYLOPRIM) 8-28 mg by ity of 100 mg 09:53: mouth [place] tablet 14 daily. [facility] Branch ALPRAZolam 2019-0 Yes 2mg Take 2 mg Un ally (XANAX) 8-28 by mouth ity of 0.25 mg 09:53: every 6 [place] tablet 14 (six) Medical hours as Branch needed. allopurinol 2019-0 Yes 100mg Take 100 U nivers (ZYLOPRIM) 8-28 mg by ity of 100 mg 09:53: mouth [place] tablet 14 daily. [facility] Branch ALPRAZolam 2019-0 Yes 2mg Take 2 mg Un ally (XANAX) 8-28 by mouth ity of 0.25 mg 09:53: every 6 [place] tablet 14 (six) Medical hours as Branch needed. allopurinol 2019-0 Yes 100mg Take 100 U nivers (ZYLOPRIM) 8-28 mg by ity of 100 mg 09:53: mouth [place] tablet 14 daily. [facility] Branch ALPRAZolam 2019-0 Yes 2mg Take 2 [...] mg 09:53: mouth [place] tablet 14 daily. [facility] Branch ALPRAZolam 2019-0 Yes 2mg Take 2 mg Un ally (XANAX) 8-28 by mouth ity of 0.25 mg 09:53: every 6 [place] tablet 14 (six) Medical hours as Branch needed. allopurinol 2019-0 Yes 100mg Take 100 U nivers (ZYLOPRIM) 8-28 mg by ity of 100 mg 09:53: mouth [place] tablet 14 daily. [facility] Branch ALPRAZolam 2019-0 Yes 2mg Take 2 mg Un ally (XANAX) 8-28 by mouth ity of 0.25 mg 09:53: every 6 [place] tablet 14 (six) Medical hours as Branch needed. allopurinol 2019-0 Yes 100mg Take 100 U nivers (ZYLOPRIM) 8-28 mg by ity of 100 mg 09:53: mouth [place] tablet 14 daily. [facility] Branch ALPRAZolam 2019-0 Yes 2mg Take 2 mg Un ally (XANAX) 8-28 by mouth ity of 0.25 mg 09:53: every 6 [place] tablet 14 (six) Medical hours as Branch needed. allopurinol 2019-0 Yes 100mg Take 100 U nivers (ZYLOPRIM) 8-28 mg by ity of 100 mg 09:53: mouth [place] tablet 14 daily. [facility] Branch ALPRAZolam 2019-0 Yes 2mg Take 2 [...] times Branch per tablet daily. atorvastati Yes [id number] 40mg Take 1 [facility] n 40 mg 5-28 tablet by ity of tablet 00:00: mouth [place] 00 every Medical evening. Branch atorvastati Yes [id number] 40mg Take 1 [facility] n 40 mg 5-28 tablet by ity of tablet 00:00: mouth [place] 00 every Medical evening. Branch atorvastati Yes [id number] 40mg Take 1 [facility] n 40 mg 5-28 tablet by ity of tablet 00:00: mouth [place] 00 every Medical evening. Branch atorvastati Yes [id number] 40mg Take 1 [facility] n 40 mg 5-28 tablet by ity of tablet 00:00: mouth [place] 00 every Medical evening. Branch atorvastati Yes [id number] 40mg Take 1 [facility] n 40 mg 5-28 tablet by ity of tablet 00:00: mouth [place] 00 every Medical evening. Branch atorvastati Yes [id number] 40mg Take 1 [facility] n 40 mg 5-28 tablet by ity of tablet 00:00: mouth [place] 00 every Medical evening. Branch atorvastati Yes [id number] 40mg Take 1 [facility] n 40 mg 5-28 tablet by ity of tablet 00:00: mouth [place] 00 every Medical evening. Branch atorvastati Yes [id number] 40mg Take 1 [facility] n 40 mg 5-28 tablet by ity of tablet 00:00: mouth [place] 00 every Medical evening. Branch atorvastati Yes [id number] 40mg Take 1 [facility] n 40 mg 5-28 tablet by ity of tablet 00:00: mouth [place] 00 every Medical evening. Branch atorvastati Yes [id number] 40mg Take 1 [facility] n 40 mg 5-28 tablet by ity of tablet 00:00: mouth [place] 00 every Medical evening. [place] atorvastati 0 Yes [id number] 40mg Take 1 [facility] n 40 mg 5-28 tablet by ity of tablet 00:00: mouth [place] 00 every Medical evening. [place] atorvastati Yes [id number] 40mg Take 1 [facility] n 40 mg 5-28 tablet by ity of tablet 00:00: mouth [place] 00 every Medical evening. [place] atorvastati Yes [id number] 40mg Take 1 [facility] n 40 mg 5-28 tablet by ity of tablet 00:00: mouth [place] 00 every Medical evening. [place] atorvastati Yes [id number] 40mg Take 1 [facility] n 40 mg 5-28 tablet by ity of tablet 00:00: mouth [place] 00 every Medical evening. [place] atorvastati Yes [id number] 40mg Take 1 [facility] n 40 mg 5-28 tablet by ity of tablet 00:00: mouth [place] 00 every Medical evening. [place] atorvastati Yes [id number] 40mg Take 1 [facility] n 40 mg 5-28 tablet by ity of tablet 00:00: mouth [place] 00 every Medical evening. [place] atorvastati Yes [id number] 40mg Take 1 [facility] n 40 mg 5-28 tablet by ity of tablet 00:00: mouth [place] 00 every Medical evening. [place] atorvastati Yes [id number] 40mg Take 1 [facility] n 40 mg 5-28 tablet by ity of tablet 00:00: mouth [place] 00 every Medical evening. [place] atorvastati Yes [id number] 40mg Take 1 [facility] n 40 mg 5-28 tablet by ity of tablet 00:00: mouth [place] 00 every Medical evening. [place] atorvastati 0 Yes [id number] 40mg Take 1 [facility] n 40 mg 5-28 tablet by ity of tablet 00:00: mouth [place] 00 every Medical evening. [place] atorvastati Yes [id number] 40mg Take 1 [facility] n 40 mg 5-28 tablet by ity of tablet 00:00: mouth [place] 00 every Medical evening. [place] atorvastati Yes [id number] 40mg Take 1 [facility] n 40 mg 5-28 tablet by ity of tablet 00:00: mouth [place] 00 every Medical evening. Branch atorvastati Yes [id number] 40mg Take 1 [facility] n 40 mg 5-28 tablet by ity of tablet 00:00: mouth [place] 00 every Medical evening. Branch atorvastati Yes [id number] 40mg Take 1 [facility] n 40 mg 5-28 tablet by ity of tablet 00:00: mouth [place] 00 every Medical evening. Branch atorvastati Yes [id number] 40mg Take 1 [facility] n 40 mg 5-28 tablet by ity of tablet 00:00: mouth [place] 00 every Medical evening. Branch atorvastati Yes [id number] 40mg Take 1 [facility] n 40 mg 5-28 tablet by ity of tablet 00:00: mouth [place] 00 every Medical evening. Branch atorvastati Yes [id number] 40mg Take 1 [facility] n 40 mg 5-28 tablet by ity of tablet 00:00: mouth [place] 00 every Medical evening. Branch atorvastati Yes [id number] 40mg Take 1 [facility] n 40 mg 5-28 tablet by ity of tablet 00:00: mouth [place] 00 every Medical evening. Branch atorvastati Yes [id number] 40mg Take 1 [facility] n 40 mg 5-28 tablet by ity of tablet 00:00: mouth [place] 00 every Medical evening. Branch atorvastati Yes [id number] 40mg Take 1 [facility] n 40 mg 5-28 tablet by ity of tablet 00:00: mouth [place] 00 every Medical evening. Branch atorvastati Yes [id number] 40mg Take 1 [facility] n 40 mg 5-28 tablet by ity of tablet 00:00: mouth [place] 00 every Medical evening. Branch atorvastati Yes [id number] 40mg Take 1 [facility] n 40 mg 5-28 tablet by ity of tablet 00:00: mouth [place] 00 every Medical evening. Branch atorvastati Yes [id number] 40mg Take 1 [facility] n 40 mg 5-28 tablet by ity of tablet 00:00: mouth [place] 00 every Medical evening. Branch atorvastati 2019-0 Yes Hyperlipide 40mg Take 1 [facility] n 40 mg 5-28 moncho, tablet by ity of tablet 00:00: unspecified mouth [place] 00 hyperlipide every Medical moncho type evening. Branch atorvastati 2021- No [id number] 40mg Take 1 [facility] n 40 mg 5-28 -21 tablet by ity of tablet 00:00: 00:00 mouth [place] 00 :00 every Medical evening. Branch atorvastati 2021- No [id number] 40mg Take 1 [facility] n 40 mg 5-28 -21 tablet by ity of tablet 00:00: 00:00 [...] 12 Medical tablet (twelve) Branch hours. amLODIPine 2017-11- No 10mg Take 1 Univ ers (NORVASC) 1-28 11-21 tablet by ity of 10 mg 00:00: 00:00 mouth [place] tablet 00 :00 daily. Medical Branch amLODIPine 2017-11- No 10mg Take 1 Univ ers (NORVASC) 1-28 11-21 tablet by ity of 10 mg 00:00: 00:00 mouth [place] tablet 00 :00 daily. Medical Branch Cholecalcif 2017-11 Yes [id number] Take 1 Un ally alayna, 0-01 capsule by ity of Vitamin D3, 00:00: mouth [place] 50,000 unit 00 weekly. Medic al capsule Branch Cholecalcif 2017-11 Yes [id number] Take 1 Un ally alayna, 0-01 capsule by ity of Vitamin D3, 00:00: mouth [place] 50,000 unit 00 weekly. Medic al capsule Branch Cholecalcif 2017-11 Yes [id number] Take 1 Un ally alayna, 0-01 capsule by ity of Vitamin D3, 00:00: mouth [place] 50,000 unit 00 weekly. Medic al capsule Branch Cholecalcif 2017-11 Yes [id number] Take 1 Un ally alayna, 0-01 capsule by ity of Vitamin D3, 00:00: mouth [place] 50,000 unit 00 weekly. Medic al capsule Branch Cholecalcif 2017-11 Yes [id number] Take 1 Un ally alayna, 0-01 capsule by ity of Vitamin D3, 00:00: mouth [place] 50,000 unit 00 weekly. Medic al capsule Branch Cholecalcif 2017-11 Yes [id number] Take 1 Un ally alayna, 0-01 capsule by ity of Vitamin D3, 00:00: mouth [place] 50,000 unit 00 weekly. Medic al capsule Branch Cholecalcif 2017-11 Yes [id number] Take 1 Un ally alayna, 0-01 capsule by ity of Vitamin D3, 00:00: mouth [place] 50,000 unit 00 weekly. Medic al capsule Branch Cholecalcif 2017-11 Yes [id number] Take 1 Un ally alayna, 0-01 capsule by ity of Vitamin D3, 00:00: mouth [place] 50,000 unit 00 weekly. Medic al capsule Branch Cholecalcif 2017-11 Yes [id number] Take 1 Un ally alayna, 0-01 capsule by ity of Vitamin D3, 00:00: mouth [place] 50,000 unit 00 weekly. Medic al capsule Branch Cholecalcif 2017-11 Yes [id number] Take 1 Un ally alayna, 0-01 capsule by ity of Vitamin D3, 00:00: mouth [place] 50,000 unit 00 weekly. Medic al capsule Branch Cholecalcif 2017-11 Yes [id number] Take 1 Un ally alayna, 0-01 capsule by ity of Vitamin D3, 00:00: mouth [place] 50,000 unit 00 weekly. Medic al capsule Branch Cholecalcif 2017-11 Yes [id number] Take 1 Un ally alayna, 0-01 capsule by ity of Vitamin D3, 00:00: mouth [place] 50,000 unit 00 weekly. Medic al capsule Branch Cholecalcif 2017-11 Yes [id number] Take 1 Un ally alayna, 0-01 capsule by ity of Vitamin D3, 00:00: mouth [place] 50,000 unit 00 weekly. Medic al capsule Branch Cholecalcif 2017-11 Yes [id number] Take 1 Un ally alayna, 0-01 capsule by ity of Vitamin D3, 00:00: mouth [place] 50,000 unit 00 weekly. Medic al capsule Branch Cholecalcif 2017-11 Yes [id number] Take 1 Un ally alayna, 0-01 capsule by ity of Vitamin D3, 00:00: mouth [place] 50,000 unit 00 weekly. Medic al capsule Branch Cholecalcif 2017-11 Yes [id number] Take 1 Un ally [place], 0-01 capsule by ity of Vitamin D3, 00:00: mouth [place] 50,000 unit 00 weekly. Medic al capsule Branch Cholecalcif 2017-11 Yes [id number] Take 1 Un ally alayna, 0-01 capsule by ity of Vitamin D3, 00:00: mouth [place] 50,000 unit 00 weekly. Medic al capsule Branch Cholecalcif 2017-11 Yes [id number] Take 1 Un ally alayna, 0-01 capsule by ity of Vitamin D3, 00:00: mouth [place] 50,000 unit 00 weekly. Medic al capsule Branch Cholecalcif 2017-11 Yes [id number] Take 1 Un ally alayna, 0-01 capsule by ity of Vitamin D3, 00:00: mouth [place] 50,000 unit 00 weekly. Medic al capsule Branch Cholecalcif 2017-11 Yes [id number] Take 1 Un ally alayna, 0-01 capsule by ity of Vitamin D3, 00:00: mouth [place] 50,000 unit 00 weekly. Medic al capsule Branch Cholecalcif 2017-11 Yes [id number] Take 1 Un ally alayna, 0-01 capsule by ity of Vitamin D3, 00:00: mouth [place] 50,000 unit 00 weekly. Medic al capsule Branch Cholecalcif 2017-11 Yes [id number] Take 1 Un ally alayna, 0-01 capsule by ity of Vitamin D3, 00:00: mouth [place] 50,000 unit 00 weekly. Medic al capsule Branch Cholecalcif 2017-11 Yes [id number] Take 1 Un ally alayna, 0-01 capsule by ity of Vitamin D3, 00:00: mouth [place] 50,000 unit 00 weekly. Medic al capsule Branch Cholecalcif 2017-11 Yes [id number] Take 1 Un ally alayna, 0-01 capsule by ity of Vitamin D3, 00:00: mouth [place] 50,000 unit 00 weekly. Medic al capsule Branch Cholecalcif 2017-11 Yes [id number] Take 1 Un ally alayna, 0-01 capsule by ity of Vitamin D3, 00:00: mouth [place] 50,000 unit 00 weekly. Medic al capsule Branch Cholecalcif 2017-11 Yes [id number] Take 1 Un ally alayna, 0-01 capsule by ity of Vitamin D3, 00:00: mouth [place] 50,000 unit 00 weekly. Medic al capsule Branch Cholecalcif 2017-11 Yes [id number] Take 1 Un ally alayna, 0-01 capsule by ity of Vitamin D3, 00:00: mouth [place] 50,000 unit 00 weekly. Medic al capsule Branch Cholecalcif 2017-11 Yes [id number] Take 1 Un ally alayna, 0-01 capsule by ity of Vitamin D3, 00:00: mouth [place] 50,000 unit 00 weekly. Medic al capsule Branch Cholecalcif 2017-11 Yes [id number] Take 1 Un ally alayna, 0-01 capsule by ity of Vitamin D3, 00:00: mouth [place] 50,000 unit 00 weekly. Medic al capsule Branch Cholecalcif 2017-11 Yes [id number] Take 1 Un ally alayna, 0-01 capsule by ity of Vitamin D3, 00:00: mouth [place] 50,000 unit 00 weekly. Medic al capsule Branch Cholecalcif 2017-11 Yes [id number] Take 1 Un ally alayna, 0-01 capsule by ity of Vitamin D3, 00:00: mouth [place] 50,000 unit 00 weekly. Medic al capsule Branch Cholecalcif 2017-11 Yes [id number] Take 1 Un ally alayna, 0-01 capsule by ity of Vitamin D3, 00:00: mouth [place] 50,000 unit 00 weekly. Medic al capsule Branch Cholecalcif 2017-11 Yes [id number] Take 1 Un ally alayna, 0-01 capsule by ity of Vitamin D3, 00:00: mouth [place] 50,000 unit 00 weekly. Medic al capsule Branch Cholecalcif 2017-11 Yes [id number] Take 1 Un ally alayna, 0-01 capsule by ity of Vitamin D3, 00:00: mouth [place] 50,000 unit 00 weekly. Medic al capsule Branch Cholecalcif 2017-11 Yes [id number] Take 1 Un ally alayna, 0-01 capsule by ity of Vitamin D3, 00:00: mouth [place] 50,000 unit 00 weekly. Medic al capsule Branch Cholecalcif 2017-11 Yes [id number] Take 1 Un ally alayna, 0-01 capsule by ity of Vitamin D3, 00:00: mouth [place] 50,000 unit 00 weekly. Medic al capsule Branch Cholecalcif 2017-11 Yes [id number] Take 1 Un ally alayna, 0-01 capsule by ity of Vitamin D3, 00:00: mouth [place] 50,000 unit 00 weekly. Medic al capsule Branch Cholecalcif 2017-11 Yes [id number] Take 1 Un ally alayna, 0-01 capsule by ity of Vitamin D3, 00:00: mouth [place] 50,000 unit 00 weekly. Medic al capsule Branch Cholecalcif 2017-11 Yes [id number] Take 1 Un ally alayna, 0-01 capsule by ity of Vitamin D3, 00:00: mouth [place] 50,000 unit 00 weekly. Medic al capsule Branch Cholecalcif 2017-11 Yes [id number] Take 1 Un ally alayna, 0-01 capsule by ity of Vitamin D3, 00:00: mouth [place] 50,000 unit 00 weekly. Medic al capsule Branch Cholecalcif 2017-11 Yes [id number] Take 1 Un ally alayna, 0-01 capsule by ity of Vitamin D3, 00:00: mouth [place] 50,000 unit 00 weekly. Medic al capsule Branch Cholecalcif 2017-11 Yes [id number] Take 1 Un ally alayna, 0-01 capsule by ity of Vitamin D3, 00:00: mouth [place] 50,000 unit 00 weekly. Medic al capsule Branch Cholecalcif 2017-11 Yes [id number] Take 1 Un ally alayna, 0-01 capsule by ity of Vitamin D3, 00:00: mouth [place] 50,000 unit 00 weekly. Medic al capsule Branch Cholecalcif 2017-11 Yes [id number] Take 1 Un ally alayna, 0-01 capsule by ity of Vitamin D3, 00:00: mouth [place] 50,000 unit 00 weekly. Medic al capsule Branch Cholecalcif 2017-11 Yes [id number] Take 1 Un ally alayna, 0-01 capsule by ity of Vitamin D3, 00:00: mouth [place] 50,000 unit 00 weekly. Medic al capsule Branch Cholecalcif 2017-11 Yes [id number] Take 1 Un ally alayna, 0-01 capsule by ity of Vitamin D3, 00:00: mouth [place] 50,000 unit 00 weekly. Medic al capsule Branch Cholecalcif 2017-11 Yes [id number] Take 1 Un ally alayna, 0-01 capsule [...] date: 05/04/18 14:13:00 CDT, 2.56, m2 Lactated No 1,000 mL, [place] radha Ringers IV 04-04 Rate: 40 l 1,000 mL 19:14: ml/hr, [place] 00 Infuse over: 25 hr, Route: IV, Dosing Weight 141.364 kg, Total Volume: 1,000, Start date: 04/04/18 14:14:00 CDT, Duration: 30 day, Stop date: 05/04/18 14:13:00 CDT, 2.56, m2 Lactated 2018-0 No 1,000 mL, [place] radha Ringers IV 6-04 Rate: 40 l 1,000 mL 19:14: ml/hr, [place] 00 Infuse over: 25 hr, Route: IV, Dosing Weight 141.364 kg, Total Volume: 1,000, Start date: 04/04/18 14:14:00 CDT, Duration: 30 day, Stop date: 05/04/18 14:13:00 CDT, 2.56, m2 Lactated 2018-0 No 1,000 mL, [place] radha Ringers IV 6-04 Rate: 40 l 1,000 mL 19:14: ml/hr, [place] 00 Infuse over: 25 hr, Route: IV, Dosing Weight 141.364 kg, Total Volume: 1,000, Start date: 04/04/18 14:14:00 CDT, Duration: 30 day, Stop date: 05/04/18 14:13:00 CDT, 2.56, m2 Lactated 2018-0 No 1,000 mL, [place] radha Ringers IV 6-04 Rate: 40 l 1,000 mL 19:14: ml/hr, [place] 00 Infuse over: 25 hr, Route: IV, Dosing Weight 141.364 kg, Total Volume: 1,000, Start date: 04/04/18 14:14:00 CDT, Duration: 30 day, Stop date: 05/04/18 14:13:00 CDT, 2.56, m2 Lactated 2018-0 No 1,000 mL, [place] radha Ringers IV 6-04 Rate: 40 l 1,000 mL 19:14: ml/hr, [place] 00 Infuse over: 25 hr, Route: IV, Dosing Weight 141.364 kg, Total Volume: 1,000, Start date: 04/04/18 14:14:00 CDT, Duration: 30 day, Stop date: 05/04/18 14:13:00 CDT, 2.56, m2 Lactated 2018-0 No 1,000 mL, [place] radha Ringers IV 6-04 Rate: 40 l 1,000 mL 19:14: ml/hr, [place] 00 Infuse over: 25 hr, Route: IV, Dosing Weight 141.364 kg, Total Volume: 1,000, Start date: 04/04/18 14:14:00 CDT, Duration: 30 day, Stop date: 05/04/18 14:13:00 CDT, 2.56, m2 Lactated 2018-0 No 1,000 mL, [place] radha Ringers IV 6-04 Rate: 40 l 1,000 mL 19:14: ml/hr, [place] 00 Infuse over: 25 hr, Route: IV, Dosing Weight 141.364 kg, Total Volume: 1,000, Start date: 04/04/18 14:14:00 CDT, Duration: 30 day, Stop date: 05/04/18 14:13:00 CDT, 2.56, m2 Lactated 2018-0 No 1,000 mL, [place] radha Ringers IV 6-04 Rate: 40 l 1,000 mL 19:14: ml/hr, [place] 00 Infuse over: 25 hr, Route: IV, Dosing Weight 141.364 kg, Total Volume: 1,000, Start date: 04/04/18 14:14:00 CDT, Duration: 30 day, Stop date: 05/04/18 14:13:00 CDT, 2.56, m2 Lactated 2018-0 No 1,000 mL, [place] radha Ringers IV 6-04 Rate: 40 l 1,000 mL 19:14: ml/hr, [place] 00 Infuse over: 25 hr, Route: IV, Dosing Weight 141.364 kg, Total Volume: 1,000, Start date: 04/04/18 14:14:00 CDT, Duration: 30 day, Stop date: 05/04/18 14:13:00 CDT, 2.56, m2 Lactated 2018-0 No 1,000 mL, [place] radha Ringers IV 6-04 Rate: 40 l 1,000 mL 19:14: ml/hr, [place] 00 Infuse over: 25 hr, Route: IV, Dosing Weight 141.364 kg, Total Volume: 1,000, Start date: 04/04/18 14:14:00 CDT, Duration: 30 day, Stop date: 05/04/18 14:13:00 CDT, 2.56, m2 Lactated 2018-0 No 1,000 mL, [place] radha Ringers IV 04-04 Rate: 40 l 1,000 mL 19:14: ml/hr, [place] 00 Infuse over: 25 hr, Route: IV, Dosing Weight 141.364 kg, Total Volume: 1,000, Start date: 04/04/18 14:14:00 CDT, Duration: 30 day, Stop date: 05/04/18 14:13:00 CDT, 2.56, m2 Lactated 2018-0 No 1,000 mL, [place] radha Ringers IV 04-04 Rate: 40 l 1,000 mL 19:14: ml/hr, [place] 00 Infuse over: 25 hr, Route: IV, Dosing Weight 141.364 kg, Total Volume: 1,000, Start date: 04/04/18 14:14:00 CDT, Duration: 30 day, Stop date: 05/04/18 14:13:00 CDT, 2.56, m2 Humulin 2018-0 Yes 60 unit, Memori a 70/30 5-15 SUB-Q, l 18:44: QPM, 0 [place] 00 Refill(s) Humulin 2018-0 Yes 60 unit, Memori a 70/30 5-15 SUB-Q, l 18:44: QPM, 0 [place] 00 Refill(s) Humulin 2018-0 Yes 60 unit, [...] 70/30 5-15 SUB-Q, l 18:44: QPM, 0 [place] 00 Refill(s) Humulin 2018-0 Yes 60 unit, Memori a 70/30 5-15 SUB-Q, l 18:44: QPM, 0 [place] 00 Refill(s) Humulin 2018-0 Yes 60 unit, Memori a 70/30 5-15 SUB-Q, l 18:44: QPM, 0 [place] 00 Refill(s) Humulin 2018-0 Yes 60 unit, Memori a 70/30 5-15 SUB-Q, l 18:44: QPM, 0 [place] 00 Refill(s) Humulin 2018-0 Yes 60 unit, Memori a 70/30 5-15 SUB-Q, l 18:44: QPM, 0 [place] 00 Refill(s) Humulin 2018-0 Yes 60 unit, Memori a 70/30 5-15 SUB-Q, l 18:44: QPM, 0 [place] 00 Refill(s) Humulin 2018-0 Yes 60 unit, Memori a 70/30 5-15 SUB-Q, l 18:44: QPM, 0 [place] 00 Refill(s) Humulin 2018-0 Yes 60 unit, [...] 70/30 5-15 SUB-Q, l 18:43: QAM, 0 [place] 00 Refill(s) Humulin 2018-0 Yes 70 unit, Memori a 70/30 5-15 SUB-Q, l 18:43: QAM, 0 [place] 00 Refill(s) Humulin 2018-0 Yes 70 unit, Memori a 70/30 5-15 SUB-Q, l 18:43: QAM, 0 [place] 00 Refill(s) Humulin 2018-0 Yes 70 unit, Memori a 70/30 5-15 SUB-Q, l 18:43: QAM, 0 [place] 00 Refill(s) Humulin 2018-0 Yes 70 unit, Memori a 70/30 5-15 SUB-Q, l 18:43: QAM, 0 [place] 00 Refill(s) Humulin Yes 70 unit, Memori a 70/30 5-15 SUB-Q, l 18:43: QAM, 0 [place] 00 Refill(s) Humulin 2017-0 Yes 70 unit, Memori a 70/30 5-15 SUB-Q, l 18:43: QAM, 0 [place] 00 Refill(s) Humulin Yes 70 unit, Memori a 70/30 5-15 SUB-Q, l 18:43: QAM, 0 [place] 00 Refill(s) Humulin 2017- Yes 70 unit, Memori a 70/30 5-15 SUB-Q, l 18:43: QAM, 0 [place] 00 Refill(s) Humulin Yes 70 unit, Memori a 70/30 5-15 SUB-Q, l 18:43: QAM, 0 [place] 00 Refill(s) Humulin Yes 70 unit, Memori a 70/30 5-15 SUB-Q, l 18:43: QAM, 0 [place] 00 Refill(s) albuterol 2015-11 Yes 2{puff} Inhale [...] for Wheezing or Shortness of Breath. Alprazolam 2016-0 Yes 2 mg = 1 Mem oria 2 MG Oral 1-07 tab, PO, l Tablet 16:37: TID, 0 [place] [Xanax] 00 Refill(s) Alprazolam 2016-0 Yes 2 mg = 1 [facility] o[facility] 2 MG Oral 1-07 tab, PO, l Tablet 16:37: TID, 0 [place] [Xanax] 00 Refill(s) Alprazolam 20160 Yes 2 mg = 1 [facility] 2 MG Oral 1-07 tab, PO, l Tablet 16:37: TID, 0 [place] [Xanax] 00 Refill(s) Alprazolam 20160 Yes 2 mg = 1 [facility] o[facility] 2 MG Oral 1-07 tab, PO, l Tablet 16:37: TID, 0 [place] [Xanax] 00 Refill(s) Alprazolam 20160 Yes 2 mg = 1 [facility] o[facility] 2 MG Oral 1-07 tab, PO, l Tablet 16:37: TID, 0 [place] [Xanax] 00 Refill(s) Alprazolam 20160 Yes 2 mg = 1 [facility] 2 MG Oral 1-07 tab, PO, l Tablet 16:37: TID, 0 [place] [Xanax] 00 Refill(s) Alprazolam 2016-0 Yes 2 mg = 1 [facility] o[facility] 2 MG Oral 1-07 tab, PO, l Tablet 16:37: TID, 0 [place] [Xanax] 00 Refill(s) Alprazolam 20160 Yes 2 mg = 1 [facility] o[facility] 2 MG Oral -07 tab, PO, l Tablet 16:37: TID, 0 [place] [Xanax] 00 Refill(s) Alprazolam 20160 Yes 2 mg = 1 [facility] 2 MG Oral 1-07 tab, PO, l Tablet 16:37: TID, 0 [place] [Xanax] 00 Refill(s) Alprazolam 2016-0 Yes 2 mg = 1 [facility] 2 MG Oral 1-07 tab, PO, l Tablet 16:37: TID, 0 [place] [Xanax] 00 Refill(s) Alprazolam 2016-0 Yes 2 mg = 1 [facility] 2 MG Oral -07 tab, PO, l Tablet 16:37: TID, 0 [place] [Xanax] 00 Refill(s) Alprazolam Yes 2 mg = 1 [facility] 2 MG Oral 1-07 tab, PO, l Tablet 16:37: TID, 0 [place] [Xanax] 00 Refill(s) Alprazolam Yes 2 mg [...] Codeine 16:21: Refill(s) [place] 00 Promethazin Yes 5 mL, PO, M emoria [...] Codeine 16:21: Refill(s) [place] 00 Acetaminoph 2016-0 Yes 1 tab, PO, Memoria en 325 MG / 1-07 BID, 0 l Hydrocodone 16:19: Refill(s) [place] Bitartrate 00 10 MG Oral Tablet [[place] 10/325] Acetaminoph Yes 1 tab, PO, Memoria en 325 MG / 1-07 BID, 0 l Hydrocodone 16:19: Refill(s) [place] Bitartrate 00 10 MG Oral Tablet [[place] 10/325] Acetaminoph Yes 1 tab, PO, Memoria en 325 MG / 1-07 BID, 0 l Hydrocodone 16:19: Refill(s) [place] Bitartrate 00 10 MG Oral Tablet [[place] 10/325] Acetaminoph Yes 1 tab, PO, Memoria en 325 MG / -07 BID, 0 l Hydrocodone 16:19: Refill(s) [place] Bitartrate 00 10 MG Oral Tablet [[place] 10/325] Acetaminoph Yes 1 tab, PO, Memoria en 325 MG / 1-07 BID, 0 l Hydrocodone 16:19: Refill(s) [place] Bitartrate 00 10 MG Oral Tablet [[place] 10/325] Acetaminoph Yes 1 tab, PO, Memoria en 325 MG / 1-07 BID, 0 l Hydrocodone 16:19: Refill(s) [place] Bitartrate 00 10 MG Oral Tablet [[place] 10/325] Acetaminoph Yes 1 tab, PO, Memoria en 325 MG / 1-07 BID, 0 l Hydrocodone 16:19: Refill(s) [place] Bitartrate 00 10 MG Oral Tablet [[place] 10/325] Acetaminoph Yes 1 tab, PO, Memoria en 325 MG / 1-07 BID, 0 l Hydrocodone 16:19: Refill(s) [place] Bitartrate 00 10 MG Oral Tablet [[place] 10/325] Acetaminoph Yes 1 tab, PO, Memoria en 325 MG / 1-07 BID, 0 l Hydrocodone 16:19: Refill(s) [place] Bitartrate 00 10 MG Oral Tablet [[place] 10/325] Acetaminoph Yes 1 tab, PO, Memoria en 325 MG / 1-07 BID, 0 l Hydrocodone 16:19: Refill(s) [place] Bitartrate 00 10 MG Oral Tablet [[place] 10/325] Acetaminoph Yes 1 tab, PO, Memoria en 325 MG / 11-07 BID, 0 l Hydrocodone 16:19: Refill(s) [place] Bitartrate 00 10 MG Oral Tablet [[place] 10/325] Acetaminoph Yes 1 tab, PO, Memoria en 325 MG / 11-07 BID, 0 l Hydrocodone 16:19: Refill(s) [place] Bitartrate 00 10 MG Oral Tablet [[place] 10/325] Acetaminoph Yes 1 tab, PO, Memoria en 325 MG / 11-07 BID, 0 l Hydrocodone 16:19: Refill(s) [place] Bitartrate 00 10 MG Oral Tablet [[place] 10/325] tizanidine Yes 4 mg = 1 [...] cap, PO, l capsule 16:17: BID, 0 [place] 00 Refill(s) cephalexin 2016-0 Yes 500 mg [...] cap, PO, l capsule 16:17: BID, 0 [place] 00 Refill(s) cephalexin 2016-0 Yes 500 mg = 1 M emoria 500 mg oral 1-07 cap, PO, l capsule 16:17: BID, 0 [place] 00 Refill(s) cephalexin 2016-0 Yes 500 mg = 1 M emoria 500 mg oral 1-07 cap, PO, l capsule 16:17: BID, 0 [place] 00 Refill(s) cephalexin 2016-0 Yes 500 mg = 1 M emoria 500 mg oral 1-07 cap, PO, l capsule 16:17: BID, 0 [place] 00 Refill(s) cephalexin Yes 500 mg = 1 M emoria 500 mg oral 1-07 cap, PO, l capsule 16:17: BID, 0 [place] 00 Refill(s) duloxetine Yes 60 mg = 1 Me moria 60 MG 1-07 cap, PO, l Enteric 16:16: Daily, 0 [place] n Coated 00 Refill(s) Capsule [Cymbalta] atorvastati Yes 40 mg = 1 M emoria n 40 MG 1-07 tab, PO, l Oral Tablet 16:16: Bedtime, 0 [place] [Lipitor] 00 Refill(s) duloxetine Yes 60 mg = 1 Me moria 60 MG 1-07 cap, PO, l Enteric 16:16: Daily, 0 [place] n Coated 00 Refill(s) Capsule [Cymbalta] atorvastati Yes 40 mg = 1 M emoria n 40 MG 1-07 tab, PO, l Oral Tablet 16:16: Bedtime, 0 [place] [Lipitor] 00 Refill(s) duloxetine Yes 60 mg = 1 Me moria 60 MG 1-07 cap, PO, l Enteric 16:16: Daily, 0 [place] n Coated 00 Refill(s) Capsule [Cymbalta] atorvastati Yes 40 mg = 1 M emoria n 40 MG 1-07 tab, PO, l Oral Tablet 16:16: Bedtime, 0 [place] [Lipitor] 00 Refill(s) duloxetine Yes 60 mg [...] PO, l Oral Tablet 16:16: Bedtime, 0 [place] [Lipitor] 00 Refill(s) duloxetine Yes 60 mg [...] PO, l Oral Tablet 16:16: Bedtime, 0 [place] [Lipitor] 00 Refill(s) duloxetine Yes 60 mg [...] PO, l Oral Tablet 16:16: Bedtime, 0 [place] [Lipitor] 00 Refill(s) duloxetine Yes 60 mg = 1 Me moria 60 MG 1-07 cap, PO, l Enteric 16:16: Daily, 0 [place] n Coated 00 Refill(s) Capsule [Cymbalta] atorvastati Yes 40 mg = 1 M emoria n 40 MG 1-07 tab, PO, l Oral Tablet 16:16: Bedtime, 0 [place] [Lipitor] 00 Refill(s) duloxetine Yes 60 mg [...] 16:15: QID-Before [place] nn Meals, 0 Refill(s) promethazin Yes 25 mg = 1 M emoria e 25 mg 1-07 tab, PO, l oral tablet 16:15: PRN, 0 [place] flakita 00 Refill(s) sucralfate Yes 1 gm = 1 Mem oria 1 g oral 1-07 tab, PO, l tablet 16:15: QID-Before [place] nn Meals, 0 Refill(s) promethazin Yes 25 mg = 1 M emoria e 25 mg 1-07 tab, PO, l oral tablet 16:15: PRN, 0 [place] 00 Refill(s) sucralfate 0 Yes 1 gm = 1 [facility] o[facility] 1 g oral 1-07 tab, PO, l tablet 16:15: QID-Before [place] nn Meals, 0 Refill(s) promethazin Yes 25 mg [...] 16:15: QID-Before [place] Meals, 0 Refill(s) promethazin Yes 25 mg = 1 M emoria e 25 mg 1-07 tab, PO, l oral tablet 16:15: PRN, 0 [place] fl[place] 00 Refill(s) sucralfate 0 Yes 1 gm = 1 [facility] o[facility] 1 g oral 1-07 tab, PO, l tablet 16:15: QID-Before [place] Meals, 0 Refill(s) promethazin Yes 25 mg = 1 M emoria e 25 mg 1-07 tab, PO, l oral tablet 16:15: PRN, 0 [place] fl[place] 00 Refill(s) sucralfate Yes 1 gm = 1 [facility] o[facility] 1 g oral 1-07 tab, PO, l tablet 16:15: QID-Before [place] Meals, 0 Refill(s) promethazin Yes 25 mg = 1 M emoria e 25 mg 1-07 tab, PO, l oral tablet 16:15: PRN, 0 [place] fl[place] 00 Refill(s) sucralfate 0 Yes 1 gm = 1 [facility] o[facility] 1 g oral 1-07 tab, PO, l tablet 16:15: QID-Before [place] nn Meals, 0 Refill(s) promethazin Yes 25 mg [...] tab, PO, l Tablet 16:14: PRN, 0 [place] [Colcrys] 00 Refill(s) Colchicine 2016-0 Yes 0.6 [...] tab, PO, l Tablet 16:14: PRN, 0 [place] [Colcrys] 00 Refill(s) Colchicine 2016-0 Yes 0.6 mg = 1 M emoria 0.6 MG Oral 1-07 tab, PO, l Tablet 16:14: PRN, 0 [place] [Colcrys] 00 Refill(s) Colchicine 2016-0 Yes 0.6 mg = 1 M emoria 0.6 MG Oral 1-07 tab, PO, l Tablet 16:14: PRN, 0 [place] [Colcrys] 00 Refill(s) Colchicine 2016-0 Yes 0.6 mg = 1 M emoria 0.6 MG Oral 1-07 tab, PO, l Tablet 16:14: PRN, 0 [place] [Colcrys] 00 Refill(s) Colchicine 2016-0 Yes 0.6 mg = 1 M emoria 0.6 MG Oral 1-07 tab, PO, l Tablet 16:14: PRN, 0 [place] [Colcrys] 00 Refill(s) Colchicine 2015- Yes 0.6 mg = 1 M emoria 0.6 MG Oral 1-07 tab, PO, l Tablet 16:14: PRN, 0 [place] [Colcrys] 00 Refill(s) Colchicine 2016-0 Yes 0.6 [...] tab, PO, l tablet 16:13: Daily, 0 [place] 00 Refill(s) allopurinol Yes 300 mg = 1 [facility] 300 mg oral 1-07 tab, PO, l tablet 16:13: Daily, 0 [place] 00 Refill(s) allopurinol Yes 300 mg = 1 [facility] 300 mg oral 1-07 tab, PO, l tablet 16:13: Daily, 0 [place] 00 Refill(s) allopurinol Yes 300 mg = 1 [facility] 300 mg oral 1-07 tab, PO, l tablet 16:13: Daily, 0 [place] 00 Refill(s) allopurinol Yes 300 mg = 1 [facility] 300 mg oral 1-07 tab, PO, l tablet 16:13: Daily, 0 [place] 00 Refill(s) allopurinol Yes 300 mg = 1 [facility] 300 mg oral 1-07 tab, PO, l tablet 16:13: Daily, 0 [place] 00 Refill(s) allopurinol Yes 300 mg = 1 [facility] 300 mg oral 1-07 tab, PO, l tablet 16:13: Daily, 0 [place] 00 Refill(s) allopurinol Yes 300 mg = 1 [facility] 300 mg oral 1-07 tab, PO, l tablet 16:13: Daily, 0 [place] 00 Refill(s) allopurinol Yes 300 mg = 1 [facility] 300 mg oral 1-07 tab, PO, l tablet 16:13: Daily, 0 Refill(s) allopurinol Yes 300 mg = 1 [facility] 300 mg oral 1-07 tab, PO, l tablet 16:13: Daily, 0 [place] 00 Refill(s) allopurinol Yes 300 mg = 1 [facility] 300 mg oral 1-07 tab, PO, l tablet 16:13: Daily, 0 [place] 00 Refill(s) allopurinol Yes 300 mg = 1 [facility] 300 mg oral 1-07 tab, PO, l tablet 16:13: Daily, 0 Refill(s) Unknown Yes Refill(s) [facility] Home 1-07 0 l Medication 16:12: Unknown Yes Refill(s) [facility] Home 1-07 0 l Medication 16:12: Unknown Yes Refill(s) [facility] Home 1-07 0 l Medication 16:12: Unknown Yes Refill(s) [facility] Home 1-07 0 l Medication 16:12: Unknown Yes Refill(s) [facility] Home 1-07 0 l Medication 16:12: Unknown 0 Yes Refill(s) [facility] Home 1-07 0 l Medication 16:12: Unknown Yes Refill(s) [facility] Home 1-07 0 l Medication 16:12: Unknown 0 Yes Refill(s) [facility] Home 1-07 0 l Medication 16:12: Unknown 0 Yes Refill(s) [facility] Home 1-07 0 l Medication 16:12: [place] 00 Unknown 0 Yes Refill(s) [facility] Home 1-07 0 l Medication 16:12: [place] 00 Unknown 0 Yes Refill(s) [facility] Home 1-07 0 l Medication 16:12: [place] 00 Unknown Yes Refill(s) [facility] Home 1-07 0 l Medication 16:12: Unknown Yes Refill(s) [facility] Home 1-07 0 l Medication 16:12: [place] 00 pantoprazol Yes 40 mg = 1 [...] n Coated 00 Refill(s) Tablet [Protonix] pantoprazol 0 Yes 40 mg = 1 M emoria e 40 MG 1-07 tab, PO, l Enteric 16:11: Daily, 0 [place] n Coated 00 Refill(s) Tablet [Protonix] pantoprazol 0 Yes 40 mg = 1 M [...] l de 50 MG 16:10: TID, 0 [place] Oral Tablet 00 Refill(s) Hydralazine 0 Yes 50 mg = 1 M emoria Hydrochlori -07 tab, PO, l de 50 MG 16:10: TID, 0 [place] Oral Tablet 00 Refill(s) Hydralazine 0 Yes 50 mg = 1 M emoria Hydrochlori -07 tab, PO, l de 50 MG 16:10: TID, 0 [place] Oral Tablet 00 Refill(s) Hydralazine 0 Yes 50 mg = 1 M emoria Hydrochlori -07 tab, PO, l de 50 MG 16:10: TID, 0 [place] Oral Tablet 00 Refill(s) Hydralazine 0 Yes 50 mg = 1 M emoria Hydrochlori -07 tab, PO, l de 50 MG 16:10: TID, 0 [place] Oral Tablet 00 Refill(s) Hydralazine 0 Yes 50 mg = 1 M emoria Hydrochlori -07 tab, PO, l de 50 MG 16:10: TID, 0 [place] Oral Tablet 00 Refill(s) Hydralazine 0 Yes 50 mg = 1 M emoria Hydrochlori 1-07 tab, PO, l de 50 MG 16:10: TID, 0 [place] Oral Tablet 00 Refill(s) Hydralazine 0 Yes 50 mg = 1 M emoria Hydrochlori 1-07 tab, PO, l de 50 MG 16:10: TID, 0 [place] Oral Tablet 00 Refill(s) Hydralazine 0 Yes 50 mg = 1 M emoria Hydrochlori -07 tab, PO, l de 50 MG 16:10: TID, 0 [place] Oral Tablet 00 Refill(s) Hydralazine 0 Yes 50 mg = 1 M emoria Hydrochlori -07 tab, PO, l de 50 MG 16:10: TID, 0 [place] Oral Tablet 00 Refill(s) Hydralazine 0 Yes 50 mg = 1 M emoria Hydrochlori -07 tab, PO, l de 50 MG 16:10: TID, 0 [place] Oral Tablet 00 Refill(s) Hydralazine 0 Yes 50 mg = 1 M emoria Hydrochlori -07 tab, PO, l de 50 MG 16:10: TID, 0 [place] Oral Tablet 00 Refill(s) lisinopril 0 Yes 10 mg = 1 Me moria 10 mg oral -07 tab, PO, l tablet 16:09: BID, 0 [place] 00 Refill(s) lisinopril 0 Yes 10 mg = 1 Me moria 10 mg oral -07 tab, PO, l tablet 16:09: BID, 0 [place] 00 Refill(s) lisinopril 0 Yes 10 mg = 1 Me moria 10 mg oral -07 tab, PO, l tablet 16:09: BID, 0 [place] 00 Refill(s) lisinopril 2015-0 Yes 10 mg = 1 Me moria 10 mg oral 1-07 tab, PO, l tablet 16:09: BID, 0 [place] 00 Refill(s) lisinopril 2015-0 Yes 10 mg = 1 Me moria 10 mg oral 1-07 tab, PO, l tablet 16:09: BID, 0 [place] 00 Refill(s) lisinopril 2015-0 Yes 10 mg = 1 Me [...] tab, PO, l tablet 16:09: BID, 0 [place] 00 Refill(s) lisinopril 2016-0 Yes 10 mg = 1 Me moria 10 mg oral 1-07 tab, PO, l tablet 16:09: BID, 0 [place] 00 Refill(s) lisinopril 2016-0 Yes 10 mg = 1 Me moria 10 mg oral 1-07 tab, PO, l tablet 16:09: BID, 0 [place] 00 Refill(s) lisinopril 2016-0 Yes 10 mg [...] tab, PO, l Tablet 16:08: Daily, 0 [place] [Norvasc] 00 Refill(s) Hydrochloro 2016-0 Yes 25 mg, PO, Memoria thiazide 1-07 Daily, 0 l 16:08: Refill(s) [place] 00 Amlodipine 2016-0 Yes 10 mg = 1 Me moria 10 MG Oral 1-07 tab, PO, l Tablet 16:08: Daily, 0 [place] [Norvasc] 00 Refill(s) Hydrochloro 2016-0 Yes 25 mg, PO, Memoria thiazide 1-07 Daily, 0 l 16:08: Refill(s) [place] 00 Amlodipine 2016-0 Yes 10 mg = 1 Me moria 10 MG Oral 1-07 tab, PO, l Tablet 16:08: Daily, 0 [place] [Norvasc] 00 Refill(s) Hydrochloro 2016-0 Yes 25 mg, PO, Memoria thiazide 11-07 Daily, 0 l 16:08: Refill(s) [place] 00 Amlodipine 2016-0 Yes 10 mg = 1 Me moria 10 MG Oral -07 tab, PO, l Tablet 16:08: Daily, 0 [place] [Norvasc] 00 Refill(s) Hydrochloro 2016-0 Yes 25 mg, PO, Memoria thiazide 11-07 Daily, 0 l 16:08: Refill(s) Amlodipine 2016-0 Yes 10 mg = 1 Me moria 10 MG Oral -07 tab, PO, l Tablet 16:08: Daily, 0 [place] [Norvasc] 00 Refill(s) Hydrochloro 2016-0 Yes 25 mg, PO, Memoria thiazide 11-07 Daily, 0 l 16:08: Refill(s) Amlodipine 2016-0 Yes 10 mg = 1 Me moria 10 MG Oral -07 tab, PO, l Tablet 16:08: Daily, 0 [place] [Norvasc] 00 Refill(s) Hydrochloro 2016-0 Yes 25 mg, PO, Memoria thiazide 07 Daily, 0 l 16:08: Refill(s) Amlodipine 2016-0 Yes 10 mg = 1 Me moria 10 MG Oral 1-07 tab, PO, l Tablet 16:08: Daily, 0 [place] [Norvasc] 00 Refill(s) Hydrochloro 2016-0 Yes 25 mg, PO, Memoria thiazide 1-07 Daily, 0 l 16:08: Refill(s) [place] 00 Amlodipine 2016-0 Yes 10 mg = 1 Me moria 10 MG Oral 1-07 tab, PO, l Tablet 16:08: Daily, 0 [place] [Norvasc] 00 Refill(s) Hydrochloro 2016-0 Yes 25 mg, PO, Memoria thiazide 1-07 Daily, 0 l 16:08: Refill(s) [place] 00 Amlodipine Yes 10 mg = 1 Me moria 10 MG Oral -07 tab, PO, l Tablet 16:08: Daily, 0 [place] [Norvasc] 00 Refill(s) Hydrochloro 2016-0 Yes 25 mg, PO, Memoria thiazide 07 Daily, 0 l 16:08: Refill(s) [place] 00 Amlodipine Yes 10 mg = 1 Me moria 10 MG Oral -07 tab, PO, l Tablet 16:08: Daily, 0 [place] [Norvasc] 00 Refill(s) Hydrochloro 2016-0 Yes 25 mg, PO, Memoria thiazide 11-07 Daily, 0 l 16:08: Refill(s) [place] 00 Amlodipine Yes 10 mg = 1 Me moria 10 MG Oral - tab, PO, l Tablet 16:08: Daily, 0 [...] 100 mg = 1 M emoria tartrate -07 tab, PO, l 100 mg oral 16:07: BID, 0 Herm flakita tablet 00 Refill(s) albuterol albuterol No albuterol [place] sulfate 2.5 [...] SHORTNESS OF BREATH allopurinol allopurinol No allopurino [facility] 300 mg 300 mg l 300 mg Family tablet TAKE tablet TAKE tablet Practic 1 TABLET BY 1 TABLET BY TAKE 1 e MOUTH TWICE MOUTH TWICE TABLET BY DAILY. DAILY. MOUTH TWICE DAILY. alprazolam alprazolam No alprazolam [facility] 2 mg tablet 2 mg tablet 2 mg F amily TAKE 1 TAKE 1 tablet Practic TABLET BY TABLET BY TAKE 1 e MOUTH THREE MOUTH THREE TABLET BY TIMES DAILY TIMES DAILY MOUTH NEEDED NEEDED THREE FOR ANXIETY FOR ANXIETY TIMES DAILY NEEDED FOR ANXIETY amlodipine amlodipine No amlodipine [facility] 5 mg tablet 5 mg tablet 5 mg F amily TAKE 1 TAKE 1 tablet Practic TABLET BY TABLET BY TAKE 1 e MOUTH EVERY MOUTH EVERY TABLET BY DAY DAY MOUTH EVERY DAY atorvastati atorvastati No atorvastat [facility] n 20 mg n 20 mg in 20 mg Famil y tablet TAKE tablet TAKE tablet Practic 1 TABLET BY 1 TABLET BY TAKE 1 e MOUTH EVERY MOUTH EVERY TABLET BY DAY DAY MOUTH EVERY DAY BD Insulin BD Insulin No BD Insulin [facility] Syringe Syringe Syringe [facility] U-500 1/2 U-500 1/2 U-500 1/2 Practic [...] DAILY TWICE DAILY clonidine clonidine No clonidine [facility] HCl 0.2 mg HCl 0.2 mg HCl 0.2 mg Family tablet TAKE tablet TAKE tablet Practic 1 TABLET BY 1 TABLET BY TAKE 1 e MOUTH THREE MOUTH THREE TABLET BY TIMES DAILY TIMES DAILY MOUTH THREE TIMES DAILY colchicine colchicine No colchicine [facility] 0.6 mg 0.6 mg 0.6 mg [...] ONSET OF DIARRHEA cyclobenzap cyclobenzap No cyclobenza [facility] rine 10 mg rine 10 mg [...] FOUR TIMES DAILY diclofenac diclofenac No diclofenac [facility] sodium 75 sodium 75 sodium 75 Family mg mg mg Practic tablet,aretm tablet,artem tablet,del e yed release yed release ayed TAKE 1 TAKE 1 release TABLET BY TABLET BY TAKE 1 MOUTH TWICE MOUTH TWICE TABLET BY DAILY WITH DAILY WITH MOUTH MEALS MEALS TWICE DAILY WITH MEALS dicyclomine dicyclomine No dicyclomin [facility] 10 mg 10 mg e 10 mg Family capsule capsule capsule Practi c TAKE 1 TAKE 1 TAKE 1 e CAPSULE BY CAPSULE BY CAPSULE BY MOUTH EVERY MOUTH EVERY MOUTH 8 HOURS 8 HOURS EVERY 8 HOURS gabapentin gabapentin No gabapentin [facility] 600 mg 600 mg 600 mg [...] SKIN EVERY EVENING hydralazine hydralazine No hydralazin [facility] 100 mg 100 mg e 100 mg Family tablet TAKE tablet TAKE tablet Practic 1 TABLET BY 1 TABLET BY TAKE 1 e MOUTH THREE MOUTH THREE TABLET BY TIMES DAILY TIMES DAILY MOUTH THREE TIMES DAILY hydrochloro hydrochloro No hydrochlor [facility] thiazide thiazide othiazide Fa davdia 12.5 mg 12.5 mg 12.5 mg Practi c capsule capsule capsule e TAKE 1 TAKE 1 TAKE 1 CAPSULE BY CAPSULE BY CAPSULE BY MOUTH DAILY MOUTH DAILY MOUTH DAILY hydrocodone hydrocodone No hydrocodon [facility] 7.5 7.5 e 7.5 Family mg-acetamin [...] TWICE DAILY WITH MEALS [facility] bromide m bromide Fami ly 0.02 % 0.02 % 0.02 % Practic solution solution solution e for for for inhalation inhalation inhalation lisinopril lisinopril No lisinopril [facility] 40 mg 40 mg 40 mg Family tablet TAKE tablet TAKE tablet Practic 1/2 TABLET 1/2 TABLET TAKE 1/2 e BY MOUTH BY MOUTH TABLET BY TWICE DAILY TWICE DAILY MOUTH TWICE DAILY mesalamine mesalamine No mesalamine [facility] ER 0.375 ER 0.375 ER 0.375 Fam ramses gram gram gram Practic capsule,ext capsule,ext capsule,ex e ended ended tended release 24 release 24 release 24 hr TAKE 4 hr TAKE 4 hr TAKE 4 CAPSULES BY CAPSULES BY CAPSULES MOUTH DAILY MOUTH DAILY BY MOUTH DAILY metformin metformin No metformin [facility] 1,000 mg 1,000 mg 1,000 mg Fam ramses tablet TAKE tablet TAKE tablet Practic 1 TABLET BY 1 TABLET BY TAKE 1 e MOUTH TWICE MOUTH TWICE TABLET BY DAILY WITH DAILY WITH MOUTH MEALS MEALS TWICE DAILY WITH MEALS metoprolol metoprolol No metoprolol [facility] tartrate tartrate tartrate Fam ramses 100 [...] Immunizations Ordered Filled Immunization Date Status Comments [facility] e Immunization Name Name Influenza Virus 2022-09-21 Completed [facility]00 [facility] dical Preserv and ABX Branch Free 6 MO-64 YRS Influenza Virus 2022-09-21 Completed [facility], 00:00:00 [facility] dical Preserv and ABX Branch Free 6 MO-64 YRS Influenza Virus 2022-09-21 Completed Universit y of Vaccine Quad IM, 00:00:00 [facility] dical Preserv and ABX Branch Free 6 MO-64 YRS Influenza Virus 2022-09-21 Completed [facility]it y of Vaccine Quad IM, 00:00:00 [place] [facility] dical Preserv and ABX Branch Free 6 MO-64 YRS Influenza Virus 2022-09-21 Completed [facility]it y of Vaccine Quad IM, 00:00:00 [place] [facility] Preserv and ABX Branch Free 6 MO-64 YRS Influenza Virus 2022-09-21 Completed [facility]it y of Vaccine Quad IM, 00:00:00 [place] [facility] dical Preserv and ABX Branch Free [...] rsity of MODERNA VACCINE 00:00:00 [facility] SARS-COV-2 COVID-19 2021-07-11 Completed Unive rsity of MODERNA VACCINE 00:00:00 [facility] SARS-COV-2 COVID-19 2021-07-11 Completed Unive rsity of MODERNA VACCINE 00:00:00 [facility] SARS-COV-2 COVID-19 2021-07-11 Completed Unive rsity of MODERNA VACCINE 00:00:00 [facility] SARS-COV-2 COVID-19 2021-07-11 Completed Unive rsity of MODERNA VACCINE 00:00:00 [facility] SARS-COV-2 COVID-19 2021-07-11 Completed Unive rsity of MODERNA VACCINE 00:00:00 [facility] SARS-COV-2 COVID-19 2021-07-11 Completed Unive rsity of MODERNA VACCINE 00:00:00 [facility] SARS-COV-2 COVID-19 2021-07-11 Completed Unive rsity [...] Unive rsity of MODERNA VACCINE 00:00:00 [facility] ical Branch SARS-COV-2 COVID-19 2020-12-03 Completed Unive [...] rsity of MODERNA 12+ YRS 00:00:00 [facility] ical VACCINE Branch SARS-COV-2 COVID-19 2020-12-03 Completed Unive rsity of MODERNA 12+ YRS 00:00:00 [place] [facility] VACCINE Branch SARS-COV-2 COVID-19 2020-12-03 Completed Unive rsity of MODERNA 12+ YRS 00:00:00 [facility] ical VACCINE Branch SARS-COV-2 COVID-19 2020-12-03 Completed Unive rsity of MODERNA 12+ YRS 00:00:00 [facility] ical VACCINE Branch SARS-COV-2 COVID-19 2020-12-03 Completed Unive rsity of MODERNA 12+ YRS 00:00:00 [facility] ical VACCINE Branch SARS-COV-2 COVID-19 2020-12-03 Completed Unive rsity of MODERNA 12+ YRS 00:00:00 [facility] ical VACCINE Branch SARS-COV-2 COVID-19 2020-12-03 Completed Unive rsity of MODERNA VACCINE 00:00:00 [facility] ical Branch Influenza Virus 2020-11-13 Completed Universit y of Vaccine Quad .5 mL 00:00:00 [place] [facility] 6+ MO Branch Influenza Virus 2020-11-13 Completed Universit y of Vaccine Quad .5 mL 00:00:00 [place] [facility] 6+ MO Branch Influenza Virus [...] y of Vaccine Quad .5 mL 00:00:00 [place] [facility] 6+ MO Branch Influenza Virus [...] y of Vaccine Quad .5 mL 00:00:00 [place] [facility] 6+ MO Branch Influenza Virus 2020-11-13 Completed Universit y of Vaccine Quad .5 mL 00:00:00 [place] [facility] 6+ MO Branch Influenza Virus 2020-11-13 Completed Universit y of Vaccine Quad .5 mL 00:00:00 [facility] IM 6+ MO Branch Influenza Virus 2020-11-13 Completed Universit y of Vaccine Quad .5 mL 00:00:00 [place] [facility] 6+ MO Branch Influenza Virus 2020-11-13 Completed Universit y of Vaccine Quad .5 mL 00:00:00 [facility] IM 6+ MO Branch Influenza Virus 2020-11-13 Completed Universit y of Vaccine Quad .5 mL 00:00:00 [facility] IM 6+ MO Branch Influenza Virus 2020-11-13 Completed Universit y of Vaccine Quad .5 mL 00:00:00 [facility] 6+ MO Branch Influenza Virus 2020-11-13 Completed Universit y of Vaccine Quad .5 mL 00:00:00 [facility] 6+ MO Branch Pneumococcal 2016-09-11 Completed University o f Polysaccharide, 00:00:00 [place] [facility] ical PPSV23 (PNEUMOVAX) Branch Influenza Virus 2016-09-11 Completed Universit y of Vaccine (3+ yrs) 00:00:00 [facility] Branch Pneumococcal 2016-09-11 Completed University o f Polysaccharide, 00:00:00 [place] [facility] ical PPSV23 (PNEUMOVAX) Branch Influenza Virus 2016-09-11 Completed Universit y of Vaccine (3+ yrs) 00:00:00 [facility] dicwi Branch Pneumococcal 2016-09-11 Completed University o f Polysaccharide, 00:00:00 [place] [facility] ical PPSV23 (PNEUMOVAX) Branch Influenza Virus 2016-09-11 Completed Universit y of Vaccine (3+ yrs) 00:00:00 [facility] dical Branch Pneumococcal 2016-09-11 Completed University o f Polysaccharide, 00:00:00 [place] [facility] PPSV23 (PNEUMOVAX) Branch Influenza Virus 2016-09-11 Completed Universit y of Vaccine (3+ yrs) 00:00:00 [facility] 2016-09-11 Completed University o f Polysaccharide, 00:00:00 [place] [facility] ical PPSV23 (PNEUMOVAX) Branch Influenza Virus 2016-09-11 Completed Universit y of Vaccine (3+ yrs) 00:00:00 [facility] Branch Pneumococcal 2016-09-11 Completed University o f Polysaccharide, 00:00:00 [place] [facility] PPSV23 (PNEUMOVAX) Branch Influenza Virus 2016-09-11 Completed Universit y of Vaccine (3+ yrs) 00:00:00 [facility] Branch Pneumococcal 2016-09-11 Completed University o f Polysaccharide, 00:00:00 [place] [facility] PPSV23 (PNEUMOVAX) Branch Influenza Virus 2016-09-11 Completed Universit y of Vaccine (3+ yrs) 00:00:00 [facility] Branch Pneumococcal 2016-09-11 Completed University o f Polysaccharide, 00:00:00 [place] [facility] PPSV23 (PNEUMOVAX) Branch Influenza Virus 2016-09-11 Completed Universit y of Vaccine (3+ yrs) 00:00:00 [facility] Pneumococcal 2016-09-11 Completed University o f Polysaccharide, 00:00:00 [place] [facility] ical PPSV23 (PNEUMOVAX) Branch Influenza Virus 2016-09-11 Completed Universit y of Vaccine (3+ yrs) 00:00:00 [facility] Pneumococcal 2016-09-11 Completed University o f Polysaccharide, 00:00:00 [place] [facility] PPSV23 (PNEUMOVAX) Branch Influenza Virus 2016-09-11 Completed Universit y of Vaccine (3+ yrs) 00:00:00 [facility] Pneumococcal 2016-09-11 Completed University o f Polysaccharide, 00:00:00 [place] [facility] PPSV23 (PNEUMOVAX) Branch Influenza Virus 2016-09-11 Completed Universit y of Vaccine (3+ yrs) 00:00:00 [facility] Pneumococcal 2016-09-11 Completed University o f Polysaccharide, 00:00:00 [place] [facility] PPSV23 (PNEUMOVAX) Branch Influenza Virus 2016-09-11 Completed Universit y of Vaccine (3+ yrs) 00:00:00 [facility] Pneumococcal 2016-09-11 Completed University o f Polysaccharide, 00:00:00 [place] [facility] PPSV23 (PNEUMOVAX) Branch Influenza Virus 2016-09-11 Completed Universit y of Vaccine (3+ yrs) 00:00:00 [facility] Pneumococcal 2015-04-11 Completed University o f Polysaccharide, [...] Universit y of Vaccine (3+ yrs) 00:00:00 [facility] Influenza Virus 2013-09-29 Completed Universit y of Vaccine (3+ yrs) 00:00:00 [facility] Influenza Virus 2013-09-29 Completed Universit y of Vaccine (3+ yrs) 00:00:00 [facility] Influenza Virus 2013-09-29 Completed Universit y of Vaccine (3+ yrs) 00:00:00 [facility] Influenza Virus 2013-09-29 Completed Universit y of Vaccine (3+ yrs) 00:00:00 [facility] Flu Trivalent 2013-09-29 Completed University of 00:00:00 [facility] Influenza Virus 2013-09-29 Completed Universit y of Vaccine (3+ yrs) 00:00:00 [facility] Flu Trivalent 2013-09-29 Completed University of 00:00:00 [facility] Influenza Virus 2013-09-29 Completed Universit y of Vaccine (3+ yrs) 00:00:00 [facility] Flu Trivalent 2013-09-29 Completed University of 00:00:00 [facility] Influenza Virus 2013-09-29 Completed Universit y of Vaccine (3+ yrs) 00:00:00 [facility] Flu Trivalent 2013-09-29 Completed University of 00:00:00 [facility] Influenza Virus 2013-09-29 Completed Universit y of Vaccine (3+ yrs) 00:00:00 [facility] Flu Trivalent 2013-09-29 Completed University of 00:00:00 [facility] Influenza Virus 2013-09-29 Completed Universit y of Vaccine (3+ yrs) 00:00:00 [facility] Flu Trivalent 2013-09-29 Completed University of 00:00:00 [facility] Influenza Virus 2013-09-29 Completed Universit y of Vaccine (3+ yrs) 00:00:00 [facility] Flu Trivalent 2013-09-29 Completed University of 00:00:00 [facility] Influenza Virus 2013-09-29 Completed Universit y of Vaccine (3+ yrs) 00:00:00 [facility] Flu Trivalent 2013-09-29 Completed University of 00:00:00 [facility] Influenza Virus 2013-09-29 Completed Universit y of Vaccine (3+ yrs) 00:00:00 [facility] Flu Trivalent 2013-09-29 Completed University of 00:00:00 [facility] Influenza Virus 2012-11-25 Completed Universit y of Vaccine (3+ yrs) 00:00:00 [facility] Influenza Virus 2012-11-25 Completed Universit y of Vaccine (3+ yrs) 00:00:00 [facility] Influenza Virus 2012-11-25 Completed Universit y of Vaccine (3+ yrs) 00:00:00 [facility] Influenza Virus 2012-11-25 Completed Universit y of Vaccine (3+ yrs) 00:00:00 [facility] Influenza Virus 2012-11-25 Completed Universit y of Vaccine (3+ yrs) 00:00:00 [facility] Flu Trivalent 2012-11-25 Completed University of 00:00:00 [facility] Influenza Virus 2012-11-25 Completed Universit y of Vaccine (3+ yrs) 00:00:00 [facility] Flu Trivalent 2012-11-25 Completed University of 00:00:00 [facility] Influenza Virus 2012-11-25 Completed Universit y of Vaccine (3+ yrs) 00:00:00 [facility] Flu Trivalent 2012-11-25 Completed University of 00:00:00 [facility] Influenza Virus 2012-11-25 Completed Universit y of Vaccine (3+ yrs) 00:00:00 [facility] Flu Trivalent 2012-11-25 Completed University of 00:00:00 [facility] Influenza Virus 2012-11-25 Completed Universit y of Vaccine (3+ yrs) 00:00:00 [facility] Flu Trivalent 2012-11-25 Completed University of 00:00:00 [facility] Influenza Virus 2012-11-25 Completed Universit y of Vaccine (3+ yrs) 00:00:00 [facility] Flu Trivalent 2012-11-25 Completed University of 00:00:00 [facility] Influenza Virus 2012-11-25 Completed Universit y of Vaccine (3+ yrs) 00:00:00 [facility] Flu Trivalent 2012-11-25 Completed University of 00:00:00 [facility] Influenza Virus 2012-11-25 Completed Universit y of Vaccine (3+ yrs) 00:00:00 [facility] Flu Trivalent 2012-11-25 Completed University of 00:00:00 [facility] Influenza Virus 2012-11-25 Completed Universit y of Vaccine (3+ yrs) 00:00:00 [facility] Flu Trivalent 2012-11-25 Completed University of 00:00:00 [facility] Vital Signs Vital Name Observation Time Observation Value Comments Source Systolic blood 2022-10-21 15:09:00 141 mm[Hg] Univer sity of pressure [facility] Diastolic blood 2022-10-21 15:09:00 81 mm[Hg] Unive rsity of pressure [place] [facility] Heart rate 2022-10-21 15:08:00 84 /min [facility] [place] [facility] Body height 2022-10-21 15:08:00 160 cm [facility] [place] [facility] Body weight 2022-10-21 15:08:00 151.275 kg [facility] [place] [facility] BMI 2022-10-21 15:08:00 59.08 kg/m2 [facility] [place] [facility] Oxygen saturation in 2022-10-21 15:08:00 95 /min University of Arterial blood by [place] [facility] Pulse oximetry Branch Systolic blood 2022-09-21 15:34:00 151 mm[Hg] Univer sity of pressure [place] [facility] Diastolic blood 2022-09-21 15:34:00 74 mm[Hg] Unive rsity of pressure [place] [facility] Heart rate 2022-09-21 15:33:00 86 /min [facility] Body height 2022-09-21 15:33:00 160 cm [facility] [place] [facility] Body weight 2022-09-21 15:33:00 149.778 kg [facility] [place] [facility] BMI 2022-09-21 15:33:00 58.49 kg/m2 [facility] [place] [facility] Oxygen saturation in 2022-09-21 15:33:00 92 /min University of Arterial blood by [facility] mari Pulse oximetry Branch Systolic blood 2022-08-25 14:59:00 121 mm[Hg] Univer sity of pressure [place] [facility] Diastolic blood 2022-08-25 14:59:00 75 mm[Hg] Unive rsity of pressure [facility] [place] [facility] Heart rate 2022-08-25 14:59:00 108 /min [facility] [place] [facility] Body temperature 2022-08-25 14:59:00 36.67 Pat Univ ersity of [place] [facility] Body height 2022-08-25 14:59:00 160 cm [facility] Body weight 2022-08-25 14:59:00 146.512 kg [facility] [place] [facility] BMI 2022-08-25 14:59:00 57.22 kg/m2 [facility] [place] [facility] Oxygen saturation in 2022-08-25 14:59:00 96 /min University of Arterial blood by [facility] Pulse oximetry Branch Body temperature 2022-06-16 12:58:00 36.33 Pat [facility] Body height 2022-06-16 12:58:00 160 cm [facility] Body weight 2022-06-16 12:58:00 151.32 kg [facility] BMI 2022-06-16 12:58:00 59.09 kg/m2 [facility] Systolic blood 2022-03-18 14:25:00 120 mm[Hg] Univer sity of pressure [facility] Diastolic blood 2022-03-18 14:25:00 70 mm[Hg] Unive rsity of pressure [facility] Heart rate 2022-03-18 14:25:00 78 /min Universi ty [facility] Body height 2022-03-18 14:25:00 160 cm Universi ty [facility] Body weight 2022-03-18 14:25:00 150.367 kg Universi ty [facility] BMI 2022-03-18 14:25:00 58.72 kg/m2 Universi ty [facility] Oxygen saturation in 2022-03-18 14:25:00 95 /min University of Arterial blood by [facility] Pulse oximetry Branch HEIGHT 2022-01-09 09:38:00 [...] kg Systolic blood 2021-11-06 19:35:00 132 mm[Hg] [facility] College of pressure Medicine Diastolic blood 2021-11-06 19:35:00 69 mm[Hg] [facility] Medicine Heart rate 2021-11-06 19:35:00 93 /min [facility] Body temperature 2021-11-06 19:35:00 36 Pat [facility] Respiratory rate 2021-11-06 19:35:00 18 /min [facility] Body height 2021-11-06 19:35:00 160 cm [facility] Body weight 2021-11-06 19:35:00 151.32 kg [facility] BMI 2021-11-06 19:35:00 59.09 kg/m2 [facility] BP Diastolic 2021-08-21 00:00:00 89 mm[Hg] [facility] Height 2021-08-21 00:00:00 63 [in_i] [facility] BMI (Body Mass 2021-08-21 00:00:00 58.1 kg/m2 [facility] Family Index) Practice BP Systolic 2021-08-21 00:00:00 131 mm[Hg] [facility] Body Weight 2021-08-21 00:00:00 328 [lb_av] [facility] Systolic blood 2022-01-09 13:53:00 157 mm[Hg] [facility] Diastolic blood 2022-01-09 13:53:00 89 mm[Hg] [facility] Heart rate 2022-01-09 13:53:00 80 /min [facility] Body temperature 2022-01-09 13:53:00 36.33 Pat [facility] Respiratory rate 2022-01-09 13:53:00 19 /min [facility] Oxygen saturation in 2022-01-09 13:53:00 93 /min [facility] Arterial blood by Medical Ce ntelizabeth Pulse oximetry Body height 2022-01-09 09:38:00 160 cm [facility] Body weight 2022-01-09 09:38:00 151.501 kg [facility] BMI 2022-01-09 09:38:00 59.17 kg/m2 [facility] Systolic (mm Hg) 2018-04-04 19:53:00 Dillon rial [place] Diastolic (mm Hg) 2018-04-04 19:53:00 Mem orial [place] Respitory Rate 2018-04-04 19:53:00 Memori al [place] Systolic (mm Hg) 2018-04-04 19:41:00 Dillon rial [place] Diastolic (mm Hg) 2018-04-04 19:41:00 Mem orial [place] Respitory Rate 2018-04-04 19:41:00 Memori al [place] Systolic (mm Hg) 2018-04-04 18:06:00 Dillon rial [place] Diastolic (mm Hg) 2018-04-04 18:06:00 Mem orial [place] Respitory Rate 2018-04-04 18:06:00 Memori al [place] Weight 2018-04-04 18:04:00 [facility] BMI Calculated 2018-04-04 18:04:00 Memori al [place] Height 2018-03-30 16:54:00 160.02 cm [facility] Respitory Rate 2018-03-21 22:06:00 Memori al [place] Systolic (mm Hg) 2018-03-21 22:06:00 Dillon rial [place] Diastolic (mm Hg) 2018-03-21 22:06:00 Mem orial [place] Respitory Rate 2018-03-21 21:53:00 Memori al [place] Systolic (mm Hg) 2018-03-21 21:53:00 Dillon rial [place] Diastolic (mm Hg) 2018-03-21 21:53:00 Mem orial [place] Systolic (mm Hg) 2018-03-21 19:08:00 Dillon rial [place] Diastolic (mm Hg) 2018-03-21 19:08:00 Mem orial [place] Respitory Rate 2018-03-21 19:08:00 Memori al [place] Height 2018 18:32:00 160.02 cm [facility] Weight 2018 18:32:00 [facility] BMI Calculated 2018 18:32:00 Memori al [place] Weight 2015-11-07 16:05:00 [facility] BMI Calculated 2015-11-07 16:05:00 Memori al [place] Height 2015-11-07 16:05:00 160.02 cm [facility] Procedures Procedure Date / Time Performing Clinician Source Performed FLU VACC ([id number]), 6 2022-09-21 15:41:00 Randall Sheriff [facility] MO-64 YRS, .5ML, IM, QUAD Medica l Branch (FLUCELVAX) CT HEAD WO CONTRAST 2022-08-28 14:23:13 Sonja Osorio [facility] POCT MOLECULAR FLU 2022-08-25 15:55:00 Sonja Osorio [facility] CBC W/AUTO DIFF WITH 2022-07-28 12:34:00 [facility] COMPREHENSIVE METABOLIC 2022-07-28 12:34:00 [facility] FOLATE 2022-07-28 12:34:00 [facility] HEMOGLOBIN A1C 2022-07-28 12:34:00 [facility] LIPID PANEL 2022-07-28 12:34:00 [facility] PROTIME \\T\\ PTT 2022-07-28 12:34:00 [facility] THYROID PROFILE (T3U - T4 2022-07-28 12:34:00 [facility] T7 - TSH) Medicine URINALYSIS, COMPLETE 2022-07-28 12:34:00 [facility]/REFLEX TO CULTURE Medicine VITAMIN A 2022-07-28 12:34:00 [facility] VITAMIN B1 2022-07-28 12:34:00 [facility] VITAMIN B12 2022-07-28 12:34:00 [facility] VITAMIN D 25 HYDROXY 2022-07-28 12:34:00 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 College of SURGERY [facility] POCT-GLUCOSE METER 2022-01-09 13:43:00 Charo Wise [facility] REPORT OF PROCEDURE - 2022-01-09 12:37:11 Charo Wise [facility] ENDOSCOPY URL Center REPORT OF PROCEDURE - 2022-01-09 12:36:24 Charo Wise [facility] ENDOSCOPY URL Center TISSUE EXAM 2022-01-09 11:31:00 Charo Wise [facility] ESOPHAGEAL BALLOON 2022-01-09 10:53:00 Charo Wise [facility] PROVOCATION STUDY Center COLONOSCOPY, WITH 2022-01-09 10:53:00 Charo Wise [facility] POLYPECTOMY Center ENDOSCOPY, UPPER GI TRACT, 2022-01-09 10:53:00 Charo Wise [facility] WITH BIOPSY Center POCT-GLUCOSE METER 2022-01-09 09:59:00 Charo Wise [facility] SARS-COV2/RT-PCR ([facility] & 2022-01-09 07:55:00 Charo Wise [facility] REF LABS) Center MANOMETRY, ANORECTAL 2021-12-04 09:24:00 Charo Wise [facility] PAIN MANAGEMENT AGREEMENT 2021-02-12 05:01:00 Doctor Unassigned, [facility] & INFORMED CONSENT [facility] Sleeve resection of 2017-09-01 00:00:00 [facility] [place] stomach Laparoscopic adjustable 2013-11-01 06:00:00 Dillon fermin [place] gastric banding<sup>1</sup> Removal of gastric band 2013-11-01 00:00:00 Dillon riabonnie [place] Abdominal hysterectomy 2011-11-01 00:00:00 Simonaor hoa [facility] Laparoscopic adjustable 2010-11-01 00:00:00 Dillon Seay gastric banding Cholecystectomy 2009-11-01 00:00:00 [facility] Her pascal Appendectomy 2009-11-01 00:00:00 [facility] Her pascal Knee joint operation 2006-11-01 06:00:00 Dorothea Seay Shoulder joint operations 2006-11-01 06:00:00 Me berna Seay section 1984-11-01 00:00:00 [facility] torres Knee Surgery [facility] Family Practice Procedure on Shoulder [place] Fa davida Practice Maintenance of Gastric [place] F amily Band Practice Gallbladder Surgery [facility] Fami ly Practice Appendectomy [facility] Plan of Care Planned Activity Planned Date Details Comments Source Future Scheduled 2032-01-[address] [facility] 00:[facility]:00 malignant neoplasm of Medica [facility] Center colon (procedure) [code = 051528458] Future Scheduled 2032-01-[address] [facility] Test 00:00:00 malignant neoplasm of Medica [facility] Center colon (procedure) [code = 856778291] Future Scheduled 2032-01-[address] [facility] Test 00:00:00 malignant neoplasm of Medica [facility] Center colon (procedure) [code = 445258776] Future Scheduled 2032-01-[address] [facility] Test 00:00:00 malignant neoplasm of Medica l Center colon (procedure) [code = 775393418] Future Scheduled 2032-01-[address] [facility] Test 00:00:00 malignant neoplasm of Medica l Center colon (procedure) [code = 733710833] Future Scheduled 2032-01-[address] [facility] Test 00:00:00 malignant neoplasm of Medica l Center colon (procedure) [code = 557079887] Future Scheduled 2032-01-[address] [facility] Test 00:00:00 malignant neoplasm of Medica l Center colon (procedure) [code = 438505269] Future Scheduled 2032-01-[address] [facility] Test 00:00:00 malignant neoplasm of Medica l Center colon (procedure) [code = 368399581] Future Scheduled 2032-01-[address] [facility] Test 00:00:00 malignant neoplasm of Medica l Center colon (procedure) [code = 280774555] Future Scheduled 2032-01-[address] [facility] Test 00:00:00 malignant neoplasm of Medica l Center colon (procedure) [code = 311610541] Future Scheduled 2032-01-[address] [facility] Test 00:00:00 malignant neoplasm of Medica l Center colon (procedure) [code = 481732635] Future Scheduled 2032-01-[address] [facility] [address] [facility] Test 00:00:00 malignant neoplasm of Medica l Center colon (procedure) [code = 679578936] Future Scheduled 2023-01-[address] [...] Cessation Counseling and Screening (12+)] Future Scheduled 2022-12-02 Screening for [facility] Test 14:19:17 malignant neoplasm of of Med icine breast (procedure) [code = 782452657] Future Scheduled 2022-12-02 Pneumococcal Combined Ba [facility] Test 14:19:17 (1 - PCV) [code = of Medicin e Pneumococcal Combined (1 - PCV)] Future Scheduled 2022-12-02 TETANUS SHOT (ADULT) [facility] Test 14:19:17 [code = TETANUS SHOT of Medi cine (ADULT)] Future Scheduled 2022-12-[address] [facility] Test 14:19:17 examination of Medicine (regime/therapy) [code = 434204657] Future Scheduled 2022-12-[address] [facility] Test 14:19:17 Retinopathy Screening of Med icine [code = Annual Diabetic Retinopathy Screening] Future Scheduled 2022-12-02 Human immunodeficiency [employer] Test 14:19:17 virus screening of Medicine (procedure) [code = 934209464] Future Scheduled 2022-12-02 Screening for [facility] Test 14:19:17 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) [code = 120891270] Future Scheduled 2022-12-02 ZOSTER VACCINE (1 of [place] [employer] Test 14:19:17 2) [code = ZOSTER of Medicin e VACCINE (1 of 2)] Future Scheduled 2022-12-02 COVID-19 Vaccine (4 - [employer] Test 14:19:17 Booster for Moderna of Medic ine series) [code = COVID-19 Vaccine (4 - Booster for Moderna series)] Future Scheduled 2022-12-02 Medicare Awv (Initial) [employer] Test 14:19:17 [code = Medicare Awv of Medi cine (Initial)] Future Scheduled 2022-12-02 FLU VACCINE > 6 MONTHS [employer] Test 14:19:17 [code = FLU VACCINE > of Med icine 6 MONTHS] Future Scheduled 2022-12-02 BMI Follow Up Plan [employer] Test 14:19:17 [code = BMI Follow Up of Med icine Plan] Future Scheduled 2022-12-02 Screening for [facility] [employer] Test 14:19:17 malignant neoplasm of of Med icine colon (procedure) [code = 106210531] Future Scheduled 2022-11-[address] [facility] Test 00:00:00 (12+) [code = Medical Center DEPRESSION SCREENING (12+)] Future Scheduled 2022-11-[address] [facility] Test 00:00:00 (12+) [code = Medical Center DEPRESSION SCREENING (12+)] Future Scheduled 2022-08-31 Screening for [facility] [employer] Test 13:08:39 malignant neoplasm of of Med icine breast (procedure) [code = 057627936] Future Scheduled 2022-08-31 Pneumococcal Combined [employer] Test 13:08:39 (1 - PCV) [code = of Medicin e Pneumococcal Combined (1 - PCV)] Future Scheduled 2022-08-31 TETANUS SHOT (ADULT) [employer] Test 13:08:39 [code = TETANUS SHOT of Medi cine (ADULT)] Future Scheduled 2022-08-31 Diabetic foot [facility] [employer] Test 13:08:39 examination of Medicine (regime/therapy) [code = 843305731] Future Scheduled 2022-08-[address] [facility] Test 13:08:39 RETINOPATHY SCREENING of Med icine [code = ANNUAL DIABETIC RETINOPATHY SCREENING] Future Scheduled 2022-08-31 Hepatitis C screening [facility] Test 13:08:39 (procedure) [code = of Medic ine 779599298] Future Scheduled 2022-08-31 [facility] virus screening of Medicine (procedure) [code = 071549466] Future Scheduled 2022-08-31 Screening for [facility] [employer] Test 13:08:39 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) [code = 311441269] Future Scheduled 2022-08-31 [facility] 13:08:39 [code = MEDICARE AWV of Medi cine (Initial)] Future Scheduled 2022-08-31 ZOSTER VACCINE ([address] [facility] Test 13:08:39 2) [code = ZOSTER of Medicin e VACCINE (1 of 2)] Future Scheduled 2022-08-31 COVID-19 Vaccine (4 - [facility] Test 13:08:39 Booster for Moderna of Medic ine series) [code = COVID-19 Vaccine (4 - Booster for Moderna series)] Future Scheduled 2022-08-31 FLU VACCINE > 6 MONTHS B [facility] Test 13:08:39 [code = FLU VACCINE > of Med icine 6 MONTHS] Future Scheduled 2022-08-31 BMI FOLLOW UP PLAN [facility] Test 13:08:39 [code = BMI FOLLOW UP of Med icine PLAN] Future Scheduled 2022-08-31 Screening for [facility] [employer] Test 13:08:39 malignant neoplasm of of Med icine colon (procedure) [code = 699142757] Future Scheduled 2022-08-[address] [facility] Test 15:35:44 malignant neoplasm of of Med icine breast (procedure) [code = 618459487] Future Scheduled 2022-08-11 TETANUS SHOT (ADULT) [employer] Test 15:35:44 [code = TETANUS SHOT of Medi cine (ADULT)] Future Scheduled 2022-08-[address] [facility] Test 15:35:44 examination of Medicine (regime/therapy) [code = 751664859] Future Scheduled 2022-08-[address] [facility] Test 15:35:44 RETINOPATHY SCREENING of Med icine [code = ANNUAL DIABETIC RETINOPATHY SCREENING] Future Scheduled 2022-08-11 Hepatitis C screening Ba [facility] Test 15:35:44 (procedure) [code = of Medic ine 717751274] Future Scheduled 2022-08-11 Human immunodeficiency B [facility] Test 15:35:44 virus screening of Medicine (procedure) [code = 474651340] Future Scheduled 2022-08-[address] [facility] Test 15:35:44 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) [code = 543079355] Future Scheduled 2022-08-11 MEDICARE AWV (Initial) B [facility] Test 15:35:44 [code = MEDICARE AWV of Medi cine (Initial)] Future Scheduled 2022-08-11 ZOSTER VACCINE ([address] [facility] Test 15:35:44 2) [code = ZOSTER of Medicin e VACCINE (1 of 2)] Future Scheduled 2022-08-11 COVID-19 Vaccine (4 - [facility] Test 15:35:44 Booster for Moderna of Medic ine series) [code = COVID-19 Vaccine (4 - Booster for Moderna series)] Future Scheduled 2022-08-11 FLU VACCINE > 6 MONTHS B [facility] Test 15:35:44 [code = FLU VACCINE > of Med icine 6 MONTHS] Future Scheduled 2022-08-11 BMI FOLLOW UP PLAN [facility] Test 15:35:44 [code = BMI FOLLOW UP of Med icine PLAN] Future Scheduled 2022-08-[address] [facility] Test 15:35:44 malignant neoplasm of of Med icine colon (procedure) [code = 282533730] Future Scheduled 2022-07-02 INFLUENZA VACCINE (#1) C [...] VACCINE (#1)] Future Scheduled 2022-06-[address] [facility] Test 07:59:04 malignant neoplasm of of Med icine breast (procedure) [code = 986191892] Future Scheduled 2022-06-16 TETANUS SHOT (ADULT) [employer] Test 07:59:04 [code = TETANUS SHOT of Medi cine (ADULT)] Future Scheduled 2022-06-16 BMI FOLLOW UP PLAN [employer] Test 07:59:04 [code = BMI FOLLOW UP of Med icine PLAN] Future Scheduled 2022-06-16 Hepatitis C screening [employer] Test 07:59:04 (procedure) [code = of Medic ine 980948617] Future Scheduled 2022-06-16 Human immunodeficiency [employer] Test 07:59:04 virus screening of Medicine (procedure) [code = 194026275] Future Scheduled 2022-06-[address] [facility] Test 07:59:04 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) [code = 839279239] Future Scheduled 2022-06-16 MEDICARE AWV (Initial) [employer] Test 07:59:04 [code = MEDICARE AWV of Medi cine (Initial)] Future Scheduled 2022-06-16 ZOSTER VACCINE (1 of [employer] Test 07:59:04 2) [code = [...] 6 MONTHS] Future Scheduled 2022-06-[address] [facility] Test 07:59:04 malignant neoplasm of of Med icine colon (procedure) [code = 817357271] Future Scheduled 2021-11-[address] [facility] Test 09:34:08 malignant neoplasm of of Med icine colon (procedure) [code = 042892357] Future Scheduled 2021-11-[address] [facility] Test 09:34:08 malignant neoplasm of of Med icine breast (procedure) [code = 891070994] Future Scheduled 2021-11-18 TETANUS SHOT (ADULT) [employer] Test 09:34:08 [code = TETANUS SHOT of Medi cine (ADULT)] Future Scheduled 2021-11-18 BMI FOLLOW UP PLAN [employer] Test 09:34:08 [code = BMI FOLLOW UP of Med icine PLAN] Future Scheduled 2021-11-18 Hepatitis C screening [employer] Test 09:34:08 (procedure) [code = of Medic ine 340309506] Future Scheduled 2021-11-18 Human immunodeficiency [employer] Test 09:34:08 virus screening of Medicine (procedure) [code = 962830661] Future Scheduled 2021-11-[address] [facility] Test 09:34:08 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) [code = 037479916] Future Scheduled 2021-11-18 MEDICARE AWV (Initial) [employer] Test 09:34:08 [code = MEDICARE AWV of Medi cine (Initial)] Future Scheduled 2021-11-18 ZOSTER VACCINE (1 of [employer] Test 09:34:08 2) [code = ZOSTER of Medicin e VACCINE (1 of 2)] Future Scheduled 2021-11-18 FLU VACCINE > 6 MONTHS [employer] Test 09:34:08 [code = FLU VACCINE > of Med icine 6 MONTHS] Future Scheduled 2021-11-13 Depression screening Uni versity of Test 00:00:00 (procedure) [code = [place] [facility] 682959362] Branch Future Scheduled 2021-11-10 COVID-19 VACCINE (4 [...] Scheduled 2021-11-06 ANOREC MANOM AND 1 Occurrences [facility] Test 14:07:12 EMG-GI DEPT [code = starting of Medic ine NOCPT] 11/06/2021 until 05/06/2022 Future Scheduled 2021-11-06 EGD W/MAC - GI DEPT [address] [facility] Test 14:07:11 [code = 17310] starting of Medicine 11/06/2021 until 05/06/2022 Future Scheduled 2021-11-06 COLONOSCOPY W MAC GI 1 Occurrences [facility] Test 14:07:11 DEPT [code = 91787] starting of Medic ine 11/06/2021 until 05/06/2022 [...] niversity of Test 00:00:00 (procedure) [code = [facility] dical 02130740] Branch Future Scheduled 2020-12-28 Calculated low density U niversity of Test 00:00:00 lipoprotein [place] [facility] cholesterol level Branch (procedure) [code = 706605082] Future Scheduled 2020-06-27 Hemoglobin A1c Universit y of Test 00:00:00 measurement [place] [facility] (procedure) [code = Branch 40987141] Future Scheduled 2020-04-18 Diabetic foot University of Test 00:00:00 examination [facility] (regime/therapy) [code Bran h = 538882589] Future Scheduled 2019-09-16 Examination of retina Un iversity of Test 00:00:00 (procedure) [code = [facility] dical 945760260] Branch Future Scheduled 2017 SHINGLES VACCINES (1 [...] [place] [facility] (procedure) [code = Branch 495683612] Future Scheduled 2017 Stool DNA-based Universi ty of Test 00:00:00 colorectal cancer [facility] screening (procedure) Branch [code = 282415916999038] Future Scheduled 2017 Flexible fiberoptic Univ ersity of Test 00:00:00 sigmoidoscopy [facility] (procedure) [code = Branch 10510067] Future Scheduled 2017 Screening for University of Test 00:00:00 malignant neoplasm of [place] [facility] colon (procedure) Branch [code = 223531887] Future Scheduled 2017 Screening for University of Test 00:00:00 malignant neoplasm of [facility] colon (procedure) Branch [code = 545224259] Future Scheduled 2017 Zoster Recombinant Unive rsity of Test 00:00:00 Vaccine (SHINGRIX) (1 [facility] of 2) [code = Zoster Branch Recombinant Vaccine (SHINGRIX) (1 of 2)] Future Scheduled [address] [facility] Test 00:[facility]00 (procedure) [code = [facility] Center 48246986] Future Scheduled [address] [facility] Test 00:00:00 (procedure) [code = Medical Center 74322606] Future Scheduled [address] [facility] Test 00:00:00 (procedure) [code = Medical [facility] 30462524] Future Scheduled [address] [facility] Test 00:00:00 (procedure) [code = Medical Center 42605993] Future Scheduled [address] [facility] Test 00:00:00 (procedure) [code = Medical Center 14658252] Future Scheduled [address] [facility] Test 00:00:00 (procedure) [code = Medical Center 93912703] Future Scheduled 2011-11-[address] [...] University of Test 00:00:00 malignant neoplasm of [facility] breast (procedure) Branch [code = 860853110] Future Scheduled [address] [facility] Test 00:[facility]:00 malignant neoplasm of Medica l Center cervix (procedure) [code = 342927961] Future Scheduled [address] [facility] Test 00:00:00 malignant neoplasm of Medica l Center cervix (procedure) [code = 277786218] Future Scheduled [address] [facility] Test 00:00:00 malignant neoplasm of Medica l Center cervix (procedure) [code = 332542696] Future Scheduled [address] [facility] Test 00:00:00 malignant neoplasm of Medica l Center cervix (procedure) [code = 449808365] Future Scheduled [address] [facility] Test 00:00:00 malignant neoplasm of Medica l Center cervix (procedure) [code = 844942330] Future Scheduled [address] [facility] Test 00:00:00 malignant neoplasm of Medica l Center cervix (procedure) [code = 703618010] Future Scheduled 1988 Screening for University of Test 00:00:00 malignant neoplasm of [place] [facility] cervix (procedure) Branch [code = 003826872] Future Scheduled 1986 DTAP/TDAP/TD VACCINES CH I [...] of Test 00:00:00 Vaccines (1 - Tdap) [facility] dical [code = DTaP,Tdap,and Branch Td Vaccines (1 - Tdap)] Future Scheduled 1985 HEPATITIS [...] Me dical quantitative Branch (procedure) [code = 898546661] Future Scheduled [address] [facility] Test 00:00:00 malignant neoplasm of Medica l Center breast (procedure) [code = 157274203] Future Scheduled [address] [facility] Test 00:00:00 (combo) [code = CT Medical C enter Colonography (combo)] Future Scheduled [address] [facility] Test 00:00:00 malignant neoplasm of Medica l Center colon (procedure) [code = 429085224] Future Scheduled [address] [facility] Test 00:00:00 malignant neoplasm of Medica l Center colon (procedure) [code = 679037462] Future Scheduled 1967 Sigmoidoscopy [facility] Medical Cente r Future Scheduled [address] [facility] Test 00:00:00 malignant neoplasm of Medica l Center breast (procedure) [code = 339774986] Future Scheduled [address] [facility] Test 00:00:00 (combo) [code = CT Medical C enter Colonography (combo)] Future Scheduled [address] [facility] Test 00:00:00 malignant neoplasm of Medica l Center colon (procedure) [code = 366419178] Future Scheduled [address] [facility] Test 00:00:00 malignant neoplasm of Medica l Center colon (procedure) [code = 395214868] Future Scheduled 1967 S[facility]oidoscopy [facility] Medical Cente r Future Scheduled [address] [facility] Test 00:00:00 malignant neoplasm of Medica l Center breast (procedure) [code = 390238724] Future Scheduled [address] [facility] Test 00:00:00 (combo) [code = CT Medical C enter Colonography (combo)] Future Scheduled [address] [facility] Test 00:00:00 malignant neoplasm of Medica l Center colon (procedure) [code = 864956043] Future Scheduled [address] [facility] Test 00:00:00 malignant neoplasm of Medica l Center colon (procedure) [code = 152277493] Future Scheduled 1967 S[facility]oidoscopy [facility]] Medical Cente r Future Scheduled [address] [facility] Test 00:00:00 malignant neoplasm of Medica l Center breast (procedure) [code = 070692098] Future Scheduled [address] [facility] Test 00:00:00 (combo) [code = CT Medical C enter Colonography (combo)] Future Scheduled [address] [facility] Test 00:00:00 malignant neoplasm of Medica l Center colon (procedure) [code = 835657475] Future Scheduled [address] [facility] Test 00:00:00 malignant neoplasm of Medica l Center colon (procedure) [code = 019181908] Future Scheduled 1967 [facility]oidoscopy [facility]] Medical Cente r Future Scheduled [address] [facility] Test 00:00:00 malignant neoplasm of Medica l Center breast (procedure) [code = 196168127] Future Scheduled [address] [facility] Test 00:00:00 (combo) [code = CT Medical C enter Colonography (combo)] Future Scheduled [address] [facility] Test 00:00:00 malignant neoplasm of Medica l Center colon (procedure) [code = 388950309] Future Scheduled [address] [facility] Test 00:00:00 malignant neoplasm of Medica l Center colon (procedure) [code = 796587338] Future Scheduled 1967 S[facility]oidoscopy [facility]oscopy] Medical James r Future Scheduled [address] [facility] Test 00:00:00 malignant neoplasm of Medica l Center breast (procedure) [code = 282738627] Future Scheduled [address] [facility] Test 00:00:00 (combo) [code = CT Medical C enter Colonography (combo)] Future Scheduled [address] [facility] Test 00:00:00 malignant neoplasm of Medica l Center colon (procedure) [code = 198649656] Future Scheduled [address] [facility] Test 00:00:00 malignant neoplasm of Medica l Center colon (procedure) [code = 528073490] Future Scheduled 1967 [facility]oid[facility]oscopy] Medical James r Encounters Start End Encounter Admission Attending Care Care Encounter Source Date/Time Date/Time Type Type Clinicians Facility Department ID 2022-11-17 Outpatient SYSTEMTAO MDA [id number] 12:15:21 REDDY olivier 2021-08-29 Emergency [facility] [id number] Univers 21:08:39 [facility] 2020-08-23 Inpatient Tapan Martin [facility] ENDO [id number] [facility] 15:14:00 14 [facility] 2019-12-07 Inpatient KYLAH Rodriguez [facility] ENDO [id number] [facility] 10:00:00 Cas 32 [facility] 2023-01-19 2023-01-19 Outpatient Leona SHERIFF [facility] [id number] [facility] 09:00:00 09:00:[address] [facility] 2022-12-04 2022-12-04 Outpatient KYLAH CHANG MDA MDA [id number] 10:55:00 10:55:00 VIJAY olivier 2022-11-30 2022-11-30 Outpatient KYLAH CHANG MDA MDA [id number] 08:45:57 08:45:57 VIJAY olivier 2022-11-27 2022-11-27 Outpatient KYLAH ANTONY, MDA MDA [id number] 12:21:28 12:21:28 PEDRO olivier 2022-11-26 2022-11-26 Office Louis [facility] [id number] [facility] 14:30:00 15:00:00 Visit Tracey AMBULATOR 350.1.13.21 College Y 0.2.7.2.686 of [id number] [facility] patsy 810 e 2022-11-26 2022-11-26 Outpatient KYLAH CHANG, MDA MDA [id number] 13:07:20 13:20:48 VIJAY olivier 2022-11-26 2022-11-26 Outpatient EL DEE SANDOVAL, MDA MDA [id number] 11:48:23 13:02:56 ANA olivier 2022-11-26 2022-11-26 Outpatient KYLAH WEIR, MDA MDA [id number] 09:18:42 11:43:01 DARLIN olivier 2022-11-18 2022-11-18 Refill Doctor [facility] [id number] Univers 00:00:00 00:00:00 Unassigned, HEALTH 350.1.13.10 ity of [place]A 4.2.7.2.686 Frankie as ULISSES?BLEA [id number] [address] OFFICE [facility] 2022-11-18 2022-11-18 Telephone Jaziel [facility] [id number] Univers 00:00:00 00:00:00 [facility] 350.1.13.10 it y of [place] 4.2.7.2.686 Frankie as ULISSES?BLEA [id number] [address] OFFICE [facility] 2022-11-17 2022-11-17 Outpatient EL ASHLEYAriJEFFERSON, MDA MDA [id number] 11:49:34 15:08:37 REMINGTON olivier 2022-11-17 2022-11-17 Outpatient EL AGAPITO LANCASTER MDA MDA [id number] 09:21:35 11:44:36 Lauri olivier 2022-11-17 2022-11-17 Outpatient AGAPITO [facility] [id number] 09:16:28 09:16:44 Lauri jaramillo n 2022-11-17 2022-11-17 [facility] [id number] Univers 00:00:00 00:00:00 [facility] 350.1.13.10 it y of [place] 4.2.7.2.686 Frankie as ULISSES?BLEA [id number] [address] OFFICE [facility] 2022-11-13 2022-11-13 [facility] [id number] Univers 00:00:00 00:00:00 [facility] 350.1.13.10 it y of [place] 4.2.7.2.686 Frankie as ULISSES?BLEA [id number] [address] OFFICE [facility] 2022-11-07 2022-11-07 [facility] 1.2.840.114 [id number] Univers 00:00:00 00:00:00 [facility] 350.1.13.10 it y of [place] 4.2.7.2.686 Frankie as ULISSES?BLEA [id number] [address] OFFICE [facility] 2022-11-03 2022-11-03 [facility] 1.2.840.114 [id number] Univers 00:00:00 00:00:00 [facility] 350.1.13.10 it y of [place] 4.2.7.2.686 Frankie as ULISSES?BLEA [id number] [address] OFFICE [facility] 2022-11-03 2022-11-03 [facility]maddie [facility] 1.2.840.114 [id number] Univers 00:00:00 00:00:00 [facility] HEALTH 350.1.13.10 it y of [place] 4.2.7.2.686 Frankie as ULISSES?BLEA [id number] [address] OFFICE [facility] 2022-10-21 2022-10-21 Office [facility] 1.2.840.114 [id number] Univers 09:30:00 09:45:00 Visit [facility] 350.1.13.10 it y of [place] 4.2.7.2.686 Frankie as ULISSES?BLEA [id number] [address] OFFICE [facility] 2022-10-21 2022-10-21 [facility] [id number] Univers 09:30:00 09:24:24 RANDALL pierre [facility] 2022-10-01 2022-10-01 [facility] 1.2.840.114 [id number] Univers 00:00:00 00:00:00 [facility] 350.1.13.10 it y of [place] 4.2.7.2.686 Frankie as ULISSES?BLEA [id number] [address] OFFICE [facility] 2022-09-21 2022-09-21 Outpatient [facility] [id number] Univers 10:00:00 10:00:00 RANDALL pierre [facility] 2022-09-21 2022-09-21 Graphic Coordinator Lab, Ang - Db [facility] 1.2.840.1 [id number] Univers 10:00:00 10:00:00 Visit Randall Sheriff [facility] 350.1.13.10 ity of [place] 4.2.7.2.686 Frankie as ULISSES?BLEA [id number] [address] OFFICE [facility] 2022-09-21 2022-09-21 Office [facility] 1.2.840.114 [id number] Univers 09:45:00 10:00:00 Visit [facility] 350.1.13.10 it y of [place] 4.2.7.2.686 Frankie as ULISSES?BLEA [id number] [address] OFFICE [facility] 2022-09-18 2022-09-18 Refmaddie [facility] 1.2.840.114 [id number] Univers 00:00:00 00:00:00 [facility] 350.1.13.10 it y of [place] 4.2.7.2.686 Frankie as ULISSES?BLEA [id number] [place] mary MAR[address] MEDICAL OFFICE [facility] 2022-09-17 2022-09-17 Rohith [facility] 1.2.840.114 [id number] Univers 00:00:00 00:00:00 Randall HEALTH 350.1.13.10 it y of [place] 4.2.7.2.686 Frankie as ULISSES?BLEA [id number] [address] MEDICAL OFFICE [facility] 2022-09-07 2022-09-07 Rohith [facility] 1.2.840.114 [id number] Univers 00:00:00 00:00:00 Randall HEALTH 350.1.13.10 it y of [place] 4.2.7.2.686 Frankie as ULISSES?BLEA [id number] [address] OFFICE [facility] 2022-09-03 2022-09-03 [facility] 1.2.840.114 [id number] Univers 00:00:00 00:00:00 Randall HEALTH 350.1.13.10 it y of [place] 4.2.7.2.686 Frankie as ULISSES?BLEA [id number] [address] OFFICE [facility] 2022-09-03 2022-09-03 [facility] 1.2.840.114 [id number] Univers 00:00:00 00:00:00 Randall HEALTH 350.1.13.10 it y of [place] 4.2.7.2.686 Frankie as ULISSES?BLEA [id number] [address] OFFICE [facility] 2022-08-31 2022-08-31 Office JAYESH OLSEN 1.2.840.[id number] [facility] 13:14:07 15:10:18 Visit [employer] 350.1.13.21 College Y 0.2.7.2.686 of [id number] [facility] 810 e 2022-08-28 2022-08-28 Outpatient R JO [facility] [id number] Univers 08:05:50 23:59:00 SONJA pierre of [facility] [facility] 2022-08-28 2022-08-28 [facility] 1.2.840.114 [id number] Univers 08:05:50 23:59:00 Encounter Sonja LEE 350.1.13.10 ity of [facility] 4.2.7.2.686 [place] [id number] [address] 2022-08-28 2022-08-28 Graphic Coordinator Royal, Adc Lab Main [facility] 1.2.8 40.114 [id number] Univers 08:15:00 08:30:00 Visit Sonja Osorio 350.1.13.10 ity of [facility] 4.2.7.2.686 [place] [facility] [id number] La mary [address] 2022-08-28 2022-08-28 Telephone [facility] 1.2.512.530 [id number] Univers 00:00:00 00:00:00 Sonja HEALTH 350.1.13.10 it y of [facility] 4.2.7.2.686 Frankie as ULISSES?BLEA [id number] La mau[address] OFFICE [facility] 2022-08-26 2022-08-26 Outpatient [facility] [id number] Univers 00:00:00 00:00:00 SONJA pierre [facility] 2022-08-25 2022-08-25 Outpatient R [facility] [id number] Univers 10:00:00 11:23:37 SONJA pierre [facility] 2022-08-25 2022-08-25 Office [facility] 1.2.840.114 [id number] Univers 10:00:00 11:23:37 Visit Sonja ESQUEDA 350.1.13.10 it y of [place] 4.2.7.2.686 Frankie as ULISSES?BLEA [phone] La dic[address] OFFICE BUILDING 2022-08-24 2022-08-24 Telephone [facility] 1.2.798.355 [id number] Univers 00:00:00 00:00:00 Sonja HEALTH 350.1.13.10 it y of [place] 4.2.7.2.686 Frankie as ULISSES?BLEA [id number] [address] OFFICE [facility] 2022-08-21 2022-08-21 Rohith [facility] 1.2.840.114 [id number] Univers 00:00:00 00:00:00 Randall HEALTH 350.1.13.10 it y of [place] 4.2.7.2.686 Frankie as ULISSES?BLEA [id number] [address] OFFICE [facility] 2022-08-18 2022-08-18 Rohith [facility] 1.2.840.114 [id number] Univers 00:00:00 00:00:00 Randall HEALTH 350.1.13.10 it y of [place] 4.2.7.2.686 Frankie as ULISSES?BLEA [id number] [address] OFFICE [facility] 2022-08-11 2022-08-11 Office CARIE RAI 1.2.840.[id number] [facility] 15:06:02 15:06:02 Visit YOHOON AMBULATOR 350.1.13.21 College Y 0.2.7.2.686 of [id number] [facility] patsy 800 e 2022-08-06 2022-08-06 Rohith [facility] 1.2.840.114 [id number] Univers 00:00:00 00:00:00 Randall HEALTH 350.1.13.10 it y of [place] 4.2.7.2.686 Frankie as ULISSES?BLEA [id number] [address] OFFICE [facility] 2022-08-05 2022-08-05 Rohith [facility] 1.2.840.114 [id number] Univers 00:00:00 00:00:00 Randall HEALTH 350.1.13.10 it y of [place] 4.2.7.2.686 Frankie as ULISSES?BLEA [phone] [address] OFFICE [facility] 2022-07-30 2022-07-30 Rohith [facility] 1.2.840.114 [id number] Univers 00:00:00 00:00:00 Randall HEALTH 350.1.13.10 it y of [place] 4.2.7.2.686 Frankie as ULISSES?BLEA [phone] La mary GOEL [address] [place] [address] OFFICE [facility] 2022-07-28 2022-07-28 Outpatient Angelica [facility]ATHIS [facility] [id number] SLEH 11:11:47 23:59:00 2022-07-28 2022-07-28 [facility] Angelica Mathis [facility] [id number] 11:11:47 23:59:00 Encounter [facility] 2022-07-28 2022-07-28 [facility] [id number] 11:11:47 23:59:00 Encounter [facility] 2022-07-26 2022-07-26 [facility]ith [facility] 1.2.840.114 [id number] Univers 00:00:00 00:00:00 Randall HEALTH 350.1.13.10 it y of [place] 4.2.7.2.686 Frankie as ULISSES?BLEA [phone] [facility] [address] 2022-07-21 2022-07-21 [facility] 1.2.840.114 [id number] Univers 00:00:00 00:00:00 Randall HEALTH 350.1.13.10 it y of [place] 4.2.7.2.686 Frankie as ULISSES?BLEA [id number] [address] 2022-07-19 2022-07-19 Rohith [facility] 1.2.840.114 [id number] Univers 00:00:00 00:00:00 Randall HEALTH 350.1.13.10 it y of [place] 4.2.7.2.686 Frankie as ULISSES?BLEA [phone] [address] 2022-07-09 2022-07-09 [facility] 1.2.840.114 [id number] Univers 00:00:00 00:00:00 Randall HEALTH 350.1.13.10 it y of [place] 4.2.7.2.686 Frankie as ULISSES?BLEA [id number] La mary MARINO[address] OFFICE [facility] 2022-07-08 2022-07-08 Outpatient Angelica MATHIS [facility] [id number] [facility] 11:43:31 12:15:51 Colleg jessica of Medicin e 2022-07-08 2022-07-08 Outside Angelica Mathis [facility] [id number] 00:00:00 00:00:00 Orders [facility] 2022-07-08 2022-07-08 Outside Angelica Mathis [facility] [id number] 00:00:00 00:00:00 Orders [facility] 2022-07-04 2022-07-04 Rohith [facility] 1.2.840.114 [id number] Univers 00:00:00 00:00:00 [place] HEALTH 350.1.13.10 it y of [facility] 4.2.7.2.686 Frankie as ULISSES?BLEA [id number] [address] 2022-06-30 2022-06-30 Rohith SheriffCIBOL[facility] 1.2.840.114 [id number] Univers 00:00:00 00:00:00 [facility] 350.1.13.10 it y of [place] 4.2.7.2.686 Frankie as ULISSES?BLEA [phone] [facility] [address] OFFICE [facility] 2022-06-23 2022-06-23 Outpatient Leona [facility]ERO [facility] [id number] Univers 09:00:00 09:00:00 [place] ignacio of [facility] 2022-06-21 2022-06-21 Rohith [facility] 1.2.840.114 [id number] Univers 00:00:00 00:00:00 [facility] 350.1.13.10 it y of [place] 4.2.7.2.686 Frankie as ULISSES?BLEA [id number] [address] OFFICE [facility] 2022-06-17 2022-06-17 Outpatient Leona [facility]IFF [facility] [id number] Univers 10:00:00 10:00:00 RANDALL pierre [facility] 2022-06-16 2022-06-16 Office JAYESH WISE 1.2.840.[id number] [facility] 07:46:52 10:29:18 Visit CHARO AMBULATOR 350.1.13.21 College Y 0.2.7.2.686 of [id number] Medi patsy 325 e 2022-06-08 2022-06-08 [facility] 1.2.840.114 [id number] Univers 00:00:00 00:00:00 Randall HEALTH 350.1.13.10 it y of [place] 4.2.7.2.686 Frankie as ULISSES?BLEA [id number] [address] OFFICE [facility] 2022-06-08 2022-06-08 [facility] 1.2.840.114 [id number] Univers 00:00:00 00:00:00 Randall HEALTH 350.1.13.10 it y of [place] 4.2.7.2.686 Frankie as ULISSES?BLEA [id number] [address] OFFICE [facility] 2022-06-03 2022-06-03 Rohith [facility] 1.2.840.114 [id number] Univers 00:00:00 00:00:00 Randall HEALTH 350.1.13.10 it y of [place] 4.2.7.2.686 Frankie as ULISSES?BLEA [id number] [address] MEDICAL OFFICE [facility] 2022-06-03 2022-06-03 [facility] 1.2.840.114 [id number] Univers 00:00:00 00:00:00 Randall HEALTH 350.1.13.10 it y of [place] 4.2.7.2.686 Frankie as ULISSES?BLEA [id number] [address] MEDICAL OFFICE [facility] 2022-05-17 2022-05-17 Rohith [facility] 1.2.840.114 [id number] Univers 00:00:00 00:00:00 Randall HEALTH 350.1.13.10 it y of [place] 4.2.7.2.686 Frankie as ULISSES?BLEA [id number] [address] OFFICE [facility] 2022-05-11 2022-05-11 Refmaddie SheriffCIBOLA [facility] 1.2.840.114 [id number] Univers 00:00:00 00:00:00 [facility] 350.1.13.10 it y of [place] 4.2.7.2.686 Frankie as ULISSES?BLEA [id number] [address] OFFICE [facility] 2022-04-08 2022-04-08 Outpatient Aguilar_M VFP VFP [id number] 00:00:00 00:00:00 [id number] Family Practic e 2022-04-08 2022-04-08 Refmaddie SheriffCIBOLA [facility] 1.2.840.114 [id number] Univers 00:00:00 00:00:00 [place] 00532.1.13.10 it y of [place] 4.2.7.2.686 Frankie as ULISSES?BLEA [id number] [address] OFFICE [facility] 2022-03-31 2022-03-31 Refmaddie SheriffCIBOLA [facility] 1.2.840.114 [id number] Univers 00:00:00 00:00:00 [place] 00532.1.13.10 it y of [place] 4.2.7.2.686 Frankie as ULISSES?BLEA [id number] [address] OFFICE [facility] 2022-03-18 2022-03-18 Outpatient Leona SHERIFF [facility]K [facility] [id number] Univers 09:30:00 09:45:06 [facility] 2022-03-18 2022-03-18 Office [facility] 1.2.840.114 [id number] Univers 09:30:00 09:45:00 Visit [facility] 350.1.13.10 it y of [place] 4.2.7.2.686 Frankie as ULISSES?BLEA [phone] [address] OFFICE [facility] 2022-03-18 2022-03-18 Outpatient R [facility]ERIFF [facility] [id number] Univers 09:30:00 09:30:00 RANDALL pierre [facility] 2022 2022 Rohith [facility] 1.2.840.114 [id number] Univers 00:00:00 00:00:00 [place] HEALTH 350.1.13.10 it y of [place] 4.2.7.2.686 Frankie as ULISSES?BLEA [phone] [address] OFFICE [facility] 2022-03-13 2022-03-13 Rohith [facility] 1.2.840.114 [id number] Univers 00:00:00 00:00:00 Randall HEALTH 350.1.13.10 it y of [place] 4.2.7.2.686 Frankie as ULISSES?BLEA [id number] [address] 2022-03-11 2022-03-11 Rohith SheriffCIBOLA [facility] 1.2.840.114 [id number] Univers 00:00:00 00:00:00 Randall HEALTH 350.1.13.10 it y of [place] 4.2.7.2.686 Frankie as ULISSES?BLEA [id number] [address] 2022-03-09 2022-03-09 Rohith [facility] 1.2.840.114 [id number] Univers 00:00:00 00:00:00 Randall HEALTH 350.1.13.10 it y of [place] 4.2.7.2.686 Frankie as ULISSES?BLEA [id number] [address] 2022-03-05 2022-03-05 Rohith [facility] 1.2.840.114 [id number] Univers 00:00:00 00:00:00 Randall HEALTH 350.1.13.10 it y of [place] 4.2.7.2.686 Frankie as ULISSES?BLEA [id number] [address] 2022-03-02 2022-03-02 Rohith SheriffC[facility] 1.2.840.114 [id number] 53 Univers 00:00:00 00:00:00 [place] HE[facility] 350.1.13.10 it y of [place] 4.2.7.2.686 Fraknie as ULISSES?BLEA [phone] [facility] [address] OFFICE [facility] 2022-03-02 2022-03-02 [facility] 1.2.840.114 [id number] Univers 00:00:00 00:00:00 Randall HEALTH 350.1.13.10 it y of [place] 4.2.7.2.686 Frankie as ULISSES?BLEA [id number] La mary [address] 2022-02-05 2022-02-05 [facility] 1.2.901.033 [id number] Univers 00:00:00 00:00:00 [facility] 350.1.13.10 it y of [place] 4.2.7.2.686 Frankie as ULISSES?BLEA [id number] [address] 2022-01-30 2022-01-30 [facility] 1.2.840.114 [id number] Univers 00:00:00 00:00:00 [facility] 350.1.13.10 it y of [place] 4.2.7.2.686 Frankie as PROFESSIO [id number] [address] 2022-01-25 2022-01-25 Emergency X [facility] ERT [id number] Univers 12:57:00 16:23:00 JACQUELIN pierre [facility] 2022-01-25 2022-01-[address] [facility] 1.2.776.211 [id number] Univers 12:57:00 16:23:00 Jacquelin Alvarado [place] 350.1.13.10 ity of [place] 4.2.7.2.686 [place] [id number] [address] 2022-01-22 2022-01-22 Outpatient Aguilar_M VFP VFP [id number] [facility] 08:43:00 08:43:00 [id number] Family Practic e 2022-01-14 2022-01-14 Rohith YoungersCIBOLA [facility] 1.2.840.114 [id number] Univers 00:00:00 00:00:00 [facility] 350.1.13.10 [facility] 4.2.7.2.686 Frankie as SEAN [phone] La dical [facility] 044 [facility] ONE 2022-01-09 2022-01-09 Outpatient BILLIE [facility] [id number] [facility] 15:12:14 15:12:14 CHARO Colleg e of Medicin e 2022-01-09 2022-01-[address] [facility] [id number] [facility] 15:10:12 15:10:12 CHARO Colleg e of Medicin e 2022-01-09 2022-01-09 Outpatient [facility] Surgery [id number] [facility] 07:39:00 14:08:00 CHARO 2022-01-09 2022-01-09 [facility] [id number] 07:39:00 14:08:00 Encounter [facility] 2022-01-09 2022-01-09 [facility] [id number] 07:39:00 14:08:00 Encounter [facility] 2022-01-09 2022-01-09 Anesthesia Adam Sierra [facility] [id number] 11:08:00 12:56:00 Event Rishabh [facility] 2022-01-09 2022-01-09 Anesthesia Adam Sierra [facility] [id number] 11:08:00 12:56:00 Event Rishabh [facility] 2022-01-09 2022-01-09 [facility] [id number] 11:30:00 12:50:00 [facility] 2022-01-09 2022-01-09 Surgery [facility] [id number] 11:30:00 12:50:00 Charo [employer] 2022-01-09 2022-01-[address] [facility] [id number] [facility] 00:00:00 00:00:00 [facility] 2022-01-09 2022-01-[address] [facility] [id number] [facility] 00:00:00 00:00:00 [facility] 2022-01-08 2022-01-08 Outpatient EL [facility] [id number] [facility] 12:18:15 23:59:00 2022-01-08 2022-01-08 [facility] [id number] 11:55:00 23:59:00 Encounter [facility] 2022-01-08 2022-01-08 [facility] [id number] 11:55:00 23:59:00 Encounter [facility] 2022-01-08 2022-01-[address] [facility] [id number] [facility] 00:00:00 00:00:00 [facility] 2022-01-08 2022-01-[address] [facility] [id number] [facility] 00:00[facility]00 00:00:00 [facility] 2021-12-18 2021-12-18 Office [facility] 1.2.840.114 [id number] Univers 15:45:00 16:15:00 Visit [facility] 350.1.13.10 it y [facility] 4.2.7.2.686 Frankie as ULISSES?BLEA [id number] [address] MEDICAL OFFICE BUILDING 2021-12-18 2021-12-18 Outpatient Leona [facility] [id number] Univers 15:45:00 15:45:00 [facility] 2021-12-18 2021-12-18 Outpatient Leona [facility] [id number] Univers 15:45:00 15:45:00 [facility] 2021-12-16 2021-12-16 Outpatient Leona [facility] [id number] Univers 16:00:00 16:00:00 [place] ity of [facility] 2021-12-16 2021-12-16 Orders Doctor OLGA 1.2.840.114 [id number] Univers 00:00:00 00:00:00 Only Unassigned, STEVE 350.1.13.10 ity of [place] [facility] 4.2.7.2.686 Frankie as [id number] [address] 2021-12-15 2021-12-15 [facility] 1.2.840.114 [id number] Univers 00:00:00 00:00:00 [facility] 350.1.13.10 it y of [place] 4.2.7.2.686 Frankie as PROFESSIO [phone] La mauwi YOVANI [address] [place] [address] OFFICE BUILDING ONE 2021-12-08 2021-12-08 [facility] 1.2.840.114 [id number] Univers 00:00:00 00:00:00 [facility] 350.1.13.10 it y of [place] 4.2.7.2.686 Frankie as ULISSES?BLEA [phone] La dicjessica GOEL [address] [place] [address] MEDICAL OFFICE BUILDING 2021-12-04 2021-12-04 [facility] [id number] 08:54:00 10:51:00 Encounter [facility] 2021-12-04 2021-12-04 Outpatient BILLIE [facility] Surgery [id number] SLE 08:54:00 10:51:00 [facility] 2021-12-04 2021-12-04 [facility] [id number] 08:54:00 10:51:00 Encounter [facility] 2021-12-04 2021-12-04 [facility] [id number] 09:00:00 10:30:00 [facility] 2021-12-04 2021-12-04 [facility] [id number] 09:00:00 10:30:00 Charo [employer] 2021-11-19 2021-11-19 [place] [facility] 1.2.179.893 [id number] Univers 00:00:00 00:00:00 Randall HEALTH 350.1.13.10 it y of [place] 4.2.7.2.686 Frankie as ULISSES?BLEA [id number] [address] OFFICE BUILDING 2021-11-15 2021-11-15 [facility] 1.2.840.114 [id number] Univers 00:00:00 00:00:00 [facility] 350.1.13.10 it y of [place] 4.2.7.2.686 Frankie as PROFESSIO [id number] [address] ONE 2021-11-06 2021-11-06 Office BILLIE [facility] 1.2.840.[id number] [facility] 13:24:51 16:22:30 Visit CHARO AMBULATOR 350.1.13.21 College Y 0.2.7.2.686 of [id number] Medi patsy 325 e 2021-11-06 2021-11-06 [facility] 1.2.840.114 [id number] Univers 00:00:00 00:00:00 [facility] 350.1.13.10 it y of [place] 4.2.7.2.686 Frankie as ULISSES?BLEA [id number] [address] OFFICE BUILDING 2021-11-01 2021-11-01 Outpatient Aguilar_M VFP VFP [id number] 45-20 [facility] 02:58:00 02:58:00 [id number] Family Practic e 2021-10-27 2021-10-27 [facility] 1.2.840.114 [id number] Univers 00:00:00 00:00:00 Randall HEALTH 350.1.13.10 it y of [place] 4.2.7.2.686 Frankie as PROFESSIO [id number] [address] OFFICE [facility] ONE 2021-10-162021-10-16 Refmaddie SheriffCIBOLA [facility] 1.2.840.114 [id number] Univers 00:00:00 00:00:00 [facility] 350.1.13.10 it y [facility] 4.2.7.2.686 Frankie as PROFESSIO [id number] La dicjessica [facility] [address] [place] OFFICE [facility] ONE 2021-10-11 2021-10-11 Outpatient Aguilar_M VFP VFP [id number] [facility] 06:17:00 06:17:00 [id number] Family Practic e 2021-10-07 2021-10-07 Refill [facility] 1.2.840.114 [id number] Univers 00:00:00 00:00:00 [facility] 350.1.13.10 it y of [place] 4.2.7.2.686 Frankie as ULISSES?BLEA [id number] [address] OFFICE [facility] 2021-10-03 2021-10-03 Outpatient Aguilar_M VFP VFP [id number] [facility] 05:34:00 05:34:00 [id number] Family Practic e 2021-09-29 2021-09-29 Refmaddie CoughlinCIBOLA [facility] 1.2.214.722 [id number] Univers 00:00:00 00:00:00 [facility] 350.1.13.10 it y of SURGICAL 4.2.7.2.686 Frankie as SPECIALTI [id number] [facility] [address] [facility] 2021-09-18 2021-09-18 Outpatient Leona SHERIFF [facility] [id number] Univers 10:15:00 10:15:00 RANDALL pierre [facility] 2021-09-18 2021-09-18 Office [facility] 1.2.840.114 [id number] Univers 08:40:07 08:55:07 Visit [facility] 350.1.13.10 it y of [place] 4.2.7.2.686 Frankie as ULISSES?BLEA [id number] [address] OFFICE [facility] 2021-09-18 2021-09-18 Outpatient [facility] [id number] Univers 10:15:00 08:52:38 RANDALL ithenri of [facility] 2021-09-08 2021-09-08 Rohith [facility] 1.2.840.114 [id number] Univers 00:00:00 00:00:00 Randall HEALTH 350.1.13.10 it y of [place] 4.2.7.2.686 Frankie as ULISSES?BLEA [phone] La mary GOEL [address] [place] [address] OFFICE [facility] 2021-09-04 2021-09-04 Rohith [facility] 1.2.840.114 [id number] Univers 00:00:00 00:00:00 Randall HEALTH 350.1.13.10 it y of [place] 4.2.7.2.686 Frankie as PROFESSIO [phone] La mau[address] OFFICE [facility] 2021-08-28 2021-08-28 Rohith [facility] 1.2.840.114 [id number] Univers 00:00:00 00:00:00 Randall HEALTH 350.1.13.10 it y of [place] 4.2.7.2.686 Frankie as PROFESSIO [phone] La mau[address] OFFICE [facility] ONE 2021-08-22 2021-08-22 Rohith [facility] 1.2.840.114 [id number] Univers 00:00:00 00:00:00 [facility] 350.1.13.10 it y of [place] [id number] Frankie as Professio [phone] [address] Office [facility] 2021-08-21 2021-08-21 Yousuf Hwang [facility] [place] - [id number] [facility] 00:00:00 00:00:00 [facility] [id number] Family [facility] Pract brando GRIFFIN: Chase SRodger RICHEY_NANCYU[address] [place] [address] , Ph. 2021-08-20 2021-08-20 Outpatient Lm_Leona [facility] [id number] [facility] 04:30:00 04:30:00 [id number] Family Practic e 2021-08-20 2021-08-20 Telephone [facility] [id number] Univers 00:00:00 00:00:00 [facility] [id number] it y of [place] [id number] Frankie as Ulisses?Blea [phone] [address] Office [facility] 2021-08-07 2021-08-07 Refmaddie [facility] 1.2.840.114 [id number] Univers 00:00:00 00:00:00 [facility] [id number] it y of [place] [id number] Frankie as Ulisses?Blea [phone] [place] dic[address] 2021-07-14 2021-07-14 [facility] 1.2.840.114 [id number] Univers 00:00:00 00:00:00 [facility] [id number] it y of [place] [id number] Frankie as Ulisses?Blea [phone] [place] dic[address] 2021-07-11 2021-07-11 Imm/Inj Nurse, Adc Pob Immunization [facility] 1.2.840.114 [id number] Univers 10:44:02 10:44:14 Visit Miguel Patel 350.1.13 .10 ity [facility] 4.2.7.2.686 [place] [phone] [address] 2021-07-11 2021-07-11 Outpatient R [facility] [id number] Univers 10:30:00 10:30:00 MIGUEL pierre [facility] 2021-07-10 2021-07-10 [facility] 1.2.840.114 [id number] Univers 00:00:00 00:00:00 [facility] [id number] it y of [place] [id number] Frankie as Ulisses?Blea [phone] [place] dical [address] Office Building 2021-06-29 2021-06-29 [facility] 1.2.840.114 [id number] Univers 00:00:00 00:00:00 [facility] [id number] it y of [place] [id number] Frankie as Professio [phone] [place] mary nal [address] [place] [address] Office Building One 2021-06-24 2021-06-24 [facility] 1.2.840.114 [id number] Univers 00:00:00 00:00:00 [facility] 350.1.13.10 it y of [place] 4.2.7.2.686 Frankie as Professio [phone] La mary nal [address] [place] [address] Office Building One 2021-06-10 2021-06-10 [facility] 1.2.840.114 [id number] Univers 00:00:00 00:00:00 [facility] [id number] it y of [place] [id number] Frankie as Professio [phone] La maual nal [address] [place] [address] Office Building One 2021-06-09 2021-06-09 [facility] 1.2.840.114 [id number] Univers 00:00:00 00:00:00 Randall Health 350.1.13.10 it y of [place] 4.2.7.2.686 Frankie as Professio [phone] La mauwi nal [address] [place] [address] Office Building One 2021-06-09 2021-06-09 [facility] 1.2.840.114 [id number] Univers 00:00:00 00:00:00 [facility] 350.1.13.10 it y of [place] 4.2.7.2.686 Frankie as Professio [phone] La maual nal [address] [place] [address] Office Building One 2021-06-01 2021-06-01 [facility] 1.2.840.114 [id number] Univers 00:00:00 00:00:00 [facility] 350.1.13.10 it y of [place] 4.2.7.2.686 Frankie as Professio [phone] La dical nal 044 [place] Office [facility] One 2021-05-15 2021-05-15 Patient [facility] 1.2.840.114 [id number] Univers 00:00:00 00:00:00 Outreach Jaimee Alejandre [facility] 350.1.13.10 i ty of [place] 4.2.7.2.686 Frankie as Professio [phone] [facility] nal [address] [place] [address] Office [facility] One 2021-05-14 2021-05-14 Nurse Cbc, Medicare Wellness [facility] 1.2.840.114 [id number] Univers 09:04:42 10:32:18 Visit Randall Sheriff [facility] 350.1.13.10 ity of [place] 4.2.7.2.686 Frankie as Professio [phone] [facility] nal [address] [place] [address] One 2021-05-14 2021-05-14 Office [facility] 1.2.840.114 [id number] Univers 08:58:25 09:13:25 Visit Randall [facility] 350.1.13.10 it y of [place] 4.2.7.2.686 Frankie as Professio [phone] [address] Office [facility] One 2021-05-14 2021-05-14 Outpatient Leona SHERIFF [facility] [id number] Univers 09:00:00 09:00:00 RANDALL pierre [facility] 2021-05-12 2021-05-12 Refill [facility] 1.2.840.114 [id number] Univers 00:00:00 00:00:00 Randall [facility] 350.1.13.10 it y of [place] 4.2.7.2.686 Frankie as Professio [phone] [address] Office [facility] One 2021-04-30 2021-04-30 Outpatient Leona JOYCE [facility] [id number] Univers 13:15:00 13:15:00 DUSTIN pierre [facility] 2021-04-23 2021-04-23 Outpatient Leona SHERIFF [facility] [id number] Univers 00:00:00 00:00:00 RANDALL pierre [facility] 2021-04-14 2021-04-14 Rohith Sheriff, [facility] 1.2.840.114 [id number] Univers 00:00:00 00:00:00 [facility] 350.1.13.10 it y of [place] 4.2.7.2.686 Frankie as Professio [phone] La dic[address] Office Building One 2021-04-03 2021-04-03 Hammad Chaney 1.2.840.114 [id number] Univers 00:00:00 00:00:00 Management , Mary Bonnie Draper 350.1.13.10 ity of [place]2.7.2.[place] [phone] [address] 2021-03-26 2021-03-26 Refmaddie Sheriff, [facility] 1.2.840.114 [id number] Univers 00:00:00 00:00:00 [facility] 350.1.13.10 it y of [place] 4.2.7.2.686 Frankie as Professio [phone] La dical nal [address] [place] [address] Office Building One 2021-03-26 2021-03-26 Refmaddie Sheriff, [facility] 1.2.840.114 [id number] 00:00:00 00:00:00 [facility] 350.1.13.10 [place] 4.2.7.2.686 Professio [phone] [place] [address] Office Building One 2021-03-25 2021-03-25 Refmaddie Sheriff, [facility] 1.2.840.114 [id number] Univers 00:00:00 00:00:00 [facility] 350.1.13.10 it y of [place] 4.2.7.2.686 Frankie as Professio [phone] La dical nal [address] [place] [address] Office Building One 2021-03-25 2021-03-25 Refmaddie Sheriff, [facility] 1.2.840.114 [id number] 96 00:00:00 00:00:00 [facility] 350.1.13.10 [place] 4.2.7.2.686 Professio [phone] [place] [address] Office Building One 2021-03-18 2021-03-18 Gala [facility] 1.2.814.999 [id number] Univers 00:00:00 00:00:00 Randall Lee 350.1.13.10 i ty of [place].2.[place] [phone] [address] 2021-03-18 2021-03-18 Gala [facility] 1.2.572.163 [id number] 00:00:00 00:00:00 Randall Lee 350.1.13.10 [place] 4.2.7.2.686 Professio [phone] [address] 2021-03-13 2021-03-13 Gala [facility] 1.2.322.749 [id number] Univers 00:00:00 00:00:00 [facility] 350.1.13.10 it y of [place] 4.2.7.2.686 Frankie as Professio [phone] [address] Office [facility] One 2021-03-13 2021-03-13 Gala [facility] 1.2.054.247 [id number] 00:00:00 00:00:00 [facility] 350.1.13.10 [place] 4.2.7.2.686 Professio [phone] [address] One 2021-03-10 2021-03-10 Outpatient Leona BRAND [facility] [id number] Univers 12:00:00 12:00:00 AMANDA pierre of [facility] 2021-03-10 2021-03-10 Urgent Provider, [facility] 1.2.840.114 [id number] Univers 11:16:36 11:36:36 Amanda Montes DeO ca 350.1.13.10 ity of [place] 4.2.7.2.686 Frankie as Professio [phone] [address] Office [facility] One 2021-03-10 2021-03-10 Refill [facility] 1.2.840.114 [id number] Univers 00:00:00 00:00:00 [facility] 350.1.13.10 it y of [place] 4.2.7.2.686 Frankie as Professio [phone] La dicwi nal [address] [place] [address] Office Building One 2021-02-25 2021-02-25 Telephone [facility] 1.2.896.445 [id number] Univers 00:00:00 00:00:00 [facility] 350.1.13.10 it y of [place] 4.2.7.2.686 Frankie as Professio [phone] [address] Office Building One 2021-02-20 2021-02-20 Refill [facility] 1.2.840.114 [id number] Univers 00:00:00 00:00:00 [facility] 350.1.13.10 it y of [place] 4.2.7.2.686 Frankie as Professio [phone] [address] Office [facility] One 2021-02-12 2021-02-12 Office Sheriff[facility] 1.2.840.114 [id number] Univers 09:00:39 09:22:35 Visit [facility] 350.1.13.10 it y of [place] 4.2.7.2.686 Frankie as Professio [phone] [address] Office [facility] One 2021-02-12 2021-02-12 [facility] [id number] Univers 09:00:00 09:00:00 RANDALL ity [facility] 2021-02-12 2021-02-12 Orders Doctor OLGA 1.2.840.114 [id number] Univers 00:00:00 00:00:00 Only Unassigned, STEVE 350.1.13.10 ity of [place] [facility] 4.2.7.2.686 Frankie as [phone] [address] 2021-02-10 2021-02-10 Refill [facility] 1.2.840.114 [id number] Univers 00:00:00 00:00:00 [facility] 350.1.13.10 it y of [place] 4.2.7.2.686 Frankie as Professio [phone] Me dical nal [address] [place] [address] One 2021-01-06 2021-01-06 Telephone [facility] 1.2.516.933 [id number] Univers 00:00:00 00:00:00 [facility] 350.1.13.10 it y of [place] 4.2.7.2.686 Frankie as Professio [phone] [address] One 2021-01-06 2021-01-06 Telephone [facility] 1.2.788.632 [id number] Univers 00:00:00 00:00:00 [facility] 350.1.13.10 it y of [place] 4.2.7.2.686 Frankie as Professio [phone] [address] One 2021-01-01 2021-01-01 Outpatient R JAYDON [facility] [id number] Univers 15:20:00 15:20:[address] [facility] 2020-12-31 2020-12-31 Outpatient [facility] [id number] Univers 15:50:00 15:50:[address] [facility] 2020-12-12 2020-12-12 Refmaddie SheriffC[facility] 1.2.840.114 [id number] Univers 00:00:00 00:00:00 [facility] 350.1.13.10 it y of [place] 4.2.7.2.686 Frankie as Professio [phone] [address] One 2020-12-11 2020-12-11 [facility] 1.2.840.114 [id number] Univers 00:00:00 00:00:00 [facility] 350.1.13.10 it y of [place] 4.2.7.2.686 Frankie as Professio [phone] [address] One 2020-12-03 2020-12-03 Outpatient R JAYDON [facility] [id number] Univers 15:50:00 15:50:[address] [facility] 2020-11-13 2020-11-13 Office [facility] 1.2.840.114 [id number] Univers 08:46:00 09:20:33 Visit [facility] 350.1.13.10 it y of [place] 4.2.7.2.686 Frankie as Professio [phone] [address] One 2020-11-13 2020-11-13 Outpatient [facility] [id number] Univers 09:00:00 09:00:00 RANDALL johnhenri of [facility] 2020-11-11 2020-11-11 Refmaddie SheriffC[facility] 1.2.840.114 [id number] Univers 00:00:00 00:00:00 Randall Lee 350.1.13.10 i ty of [place].2.[place] [phone] [address] 2020-10-10 2020-10-10 [facility] 1.2.841.586 [id number] Univers 00:00:00 00:00:00 [facility] 350.1.13.10 it y of [place] 4.2.7.2.686 Frankie as Professio [phone] [address] One 2020-10-10 2020-10-10 Judith [facility] 1.2.840.114 [id number] Univers 00:00:00 00:00:00 (Out) [facility] 350.1.13.10 it y of [place] 4.2.7.2.686 Frankie as Professio [phone] [address] One 2020-10-10 2020-10-10 [facility] 1.2.840.114 [id number] Univers 00:00:00 00:00:00 [facility] 350.1.13.10 it y of [place] 4.2.7.2.686 Frankie as Professio [phone] [address] One 2020-10-09 2020-10-09 [facility] 1.2.840.114 [id number] Univers 00:00:00 00:00:00 [facility] 350.1.13.10 it y of [place] 4.2.7.2.686 Frankie as Professio [phone] La dical nal [address] [facility] 2020-10-08 2020-10-08 [facility] 1.2.840.114 [id number] Univers 00:00:00 00:00:00 [facility] 350.1.13.10 it y of [place] 4.2.7.2.686 Frankie as Professio [phone] La dical nal 044 [place] Office [facility] One 2020-10-04 2020-10-04 Outpatient [facility] [id number] Univers 11:15:00 11:15:[address] [facility] 2020-10-04 2020-10-04 Office [facility] 1.2.075.363 [id number] Univers 09:57:57 10:50:32 Visit [facility] 350.1.13.10 it y of Surgical 4.2.7.2.686 Frankie as Specialti [phone] La dical es 198 [facility] 2020-09-11 2020-09-11 [facility] 1.2.840.114 [id number] Univers 00:00:00 00:00:00 [facility] 350.1.13.10 it y of [place] 4.2.7.2.686 Frankie as Professio [phone] La dical nal [address] [facility] 2020-09-02 2020-09-02 [facility] 1.2.840.114 [id number] Univers 00:00:00 00:00:00 [facility] 350.1.13.10 it y of [place] 4.2.7.2.686 Frankie as Professio [phone] La dical nal 044 [place] Office [facility] 2020-08-26 2020-08-26 Outpatient R FIDE [facility] [id number] Univers 13:30:00 13:30:[address] [facility] 2020-08-15 2020-08-15 Office [facility] 1.2.840.114 [id number] Univers 09:59:04 10:14:04 Visit [facility] 350.1.13.10 it y of Surgical 4.2.7.2.686 Frankie as Specialti [phone] La dical es 198 [facility] 2020-08-15 2020-08-15 Outpatient R GALILEA [facility] [id number] Univers 10:00:00 10:00:00 GERMAIN pierre [facility] 2020-08-13 2020-08-13 Telephone [facility] 1.2.840.114 [id number] Univers 00:00:00 00:00:00 Placido Alejandre [facility] 350.1.13.10 it y of Surgical 4.2.7.2.686 Frankie as Specialti [phone] La dical es 198 [facility] 2020-08-12 2020-08-12 Office [facility] 1.2.840.114 [id number] Univers 09:06:31 09:21:31 Visit [facility] 350.1.13.10 it y of [place] 4.2.7.2.686 Frankie as Professio [phone] La dical nal 044 [place] Office [facility] 2020-08-12 2020-08-12 Outpatient [facility] [id number] Univers 09:00:00 09:00:00 RANDALL pierre [facility] 2020-08-08 2020-08-08 Office [facility] 1.2.025.805 [id number] Univers 14:52:25 15:06:19 Visit [facility] 350.1.13.10 it y of Surgical 4.2.7.2.686 Frankie as Specialti [phone] La dical es 198 [facility] 2020-08-08 2020-08-08 Outpatient [facility] [id number] Univers 15:00:00 15:00:00 PLACIDO pierre [facility] 2020-08-05 2020-08-05 Emergency [facility] 1.2.723.527 [id number] Univers 15:02:00 17:02:00 Brigida Leona Lee 350.1.13.10 i ty of [place]2.7.2.[place] [phone] [facility] 084 [place] 2020-08-05 2020-08-05 Orders Doctor ESPINOZA 1.2.840.114 [id number] Univers 00:00:00 00:00:00 Only Unassigned, STEVE 350.1.13.10 ity of [facility] 4.2.7.2.686 Frankie as [phone] [address] 2020-08-01 2020-08-01 Office [facility] 1.2.247.996 [id number] Univers 14:43:38 16:10:03 Visit Almita Hannaton 350.1.13.10 i ty of [place]2.[place] [phone] La dical nal 188 [facility] 2020-08-01 2020-08-01 Outpatient R [facility] [id number] Univers 14:30:00 14:30:00 ALMITA pierre [facility] 2020-07-29 2020-07-29 Refmaddie SheriffLo[facility] 1.2.840.114 [id number] Univers 00:00:00 00:00:00 Venga 350.1.13.10 it y of [place] 4.2.7.2.686 Frankie as Professio [phone] La dical nal 044 [place] Office [facility] One 2020-07-23 2020-07-23 Outpatient [facility] [id number] Univers 14:15:00 14:15:00 ALMITA pierre [facility] 2020-07-23 2020-07-23 Refmaddie YoungLovelace Rehabilitation Hospital 1.2.840.114 [id number] Univers 00:00:00 00:00:00 Venga 350.1.13.10 it y of [place] 4.2.7.2.686 Frankie as Professio [phone] La dical nal 044 [place] Office [facility] One 2020-07-22 2020-07-22 Outpatient R [facility] [id number] Univers 10:00:00 10:00:00 KEN ignacio [facility] 2020-07-15 2020-07-15 Refmaddie SheriffC[facility] 1.2.840.114 [id number] Univers 00:00:00 00:00:00 Randall [employer] 350.1.13.10 it y of [place] 4.2.7.2.686 Frankie as Professio [phone] [address] Office [facility] One 2020-06-26 2020-06-26 Refmaddie SheriffC[facility] 1.2.840.114 [id number] Univers 00:00:00 00:00:00 [facility] 350.1.13.10 it y of [place] 4.2.7.2.686 Frankie as Professio [phone] [address] One 2020-06-25 2020-06-25 Outpatient R JAMES [facility] [id number] Univers 13:30:00 13:30:00 WENTONG ity [facility] 2020-06-12 2020-06-12 Refmaddie SheriffC[facility] 1.2.840.114 [id number] Univers 00:00:00 00:00:00 [facility] 350.1.13.10 it y of [place] 4.2.7.2.686 Frankie as Professio [phone] [address] One 2020-06-12 2020-06-12 Telephone SheriffC[facility] 1.2.399.706 [id number] Univers 00:00:00 00:00:00 [facility] 350.1.13.10 it y of [place] 4.2.7.2.686 Frankie as Professio [phone] [address] One 2020-06-11 2020-06-11 Rohith SheriffC[facility] 1.2.840.114 [id number] Univers 00:00:00 00:00:00 [facility] 350.1.13.10 it y of [place] 4.2.7.2.686 Frankie as Professio [phone] [address] One 2020-06-05 2020-06-05 [facility] 1.2.840.114 [id number] Univers 00:00:00 00:00:00 [facility] 350.1.13.10 it y of [place] 4.2.7.2.686 Frankie as Professio [phone] [address] Office [facility] One 2020-05-28 2020-05-28 Gala [facility] 1.2.112.447 [id number] Univers 00:00:00 00:00:00 Randall Rosa 350.1.13.10 i ty of [place].2.[place] [phone] La dical nal 044 [facility] 2020-05-13 2020-05-13 Graphic Coordinator Jenniffer Paige Lab Main [facility] 1.2.8 40.114 [id number] Univers 14:52:09 15:07:09 Visit JazielRandall 350.1.13.10 ity of [place] 4[place]2.[place].2.[place] [phone] [facility] 353 [facility] 2020-05-13 2020-05-13 Outpatient [facility] [id number] Univers 14:30:00 14:30:00 RANDALL pierre [facility] 2020-05-13 2020-05-13 Office SheriffC[facility] 1.2.840.114 [id number] Univers 13:57:32 14:12:32 Visit Randall Lee 350.1.13.10 i ty of [place] 4[place]2.7.2.[place] [phone] [facility] nal [address] [place] [address] 2020-05-09 2020-05-09 Refill [facility] 1.2.840.114 [id number] Univers 00:00:00 00:00:00 [facility] 350.1.13.10 it y of [place] 4.2.7.2.686 Frankie as Professio [phone] [facility] nal [address] [place] [address] Office [facility] One 2020-04-10 2020-04-10 Refill [facility] 1.2.840.114 [id number] Univers 00:00:00 00:00:00 [facility] 350.1.13.10 it y of [place] 4.2.7.2.686 Frankie as Professio [phone] [address] 2020-03-13 2020-03-13 Telephone [facility] 1.2.657.064 [id number] Univers 00:00:00 00:00:00 Randall Lee 350.1.13.10 i ty of [place]2.7.2.[place] [phone] [facility] 044 [facility] 2020-03-11 2020-03-11 Rohith SheriffC[facility] 1.2.840.114 [id number] Univers 00:00:00 00:00:00 Randall [facility] 350.1.13.10 it y of [place] 4.2.7.2.686 Frankie as Professio [phone] [address] One 2020-02-20 2020-02-20 Telemedici JamesCIBOLA [facility] 1.2.840.114 [id number] Univers 08:07:16 16:58:17 ne Visit Kwesi Lee 350.1.13.10 ity of [place]2.[place].2.[place] [phone] [facility] 220 [facility] 2020-02-20 2020-02-20 Outpatient R JAMES [facility] [id number] Univers 15:00:00 15:00:00 KWESI henri [facility] 2020-02-15 2020-02-15 Outpatient [facility] [id number] Univers 07:30:00 07:30:00 RANDALL pierre [facility] 2020-02-15 2020-02-15 Telemedici [facility] 1.2.840.114 [id number] Univers 06:51:18 07:06:18 ne Visit Randall Lee 350.1.13.10 ity of [place] 4[place]2.7.2.[place] [phone] [address] 2020-02-14 2020-02-14 Outpatient R JAZIEL [facility] [id number] Univers 07:00:00 07:00:00 RANDALL pierre [facility] 2020-02-12 2020-02-12 Andimaddie SheriffC[facility] 1.2.840.114 [id number] Univers 00:00:00 00:00:00 Randall [facility] 350.1.13.10 it y of [place] 4.2.7.2.686 Frankie as Professio [phone] [address] 2020-01-11 2020-01-11 Refill [facility] 1.2.840.114 [id number] Univers 00:00:00 00:00:00 [facility] 350.1.13.10 it y of [place] 4.2.7.2.686 Frankie as Professio [phone] [address] One 2019-12-28 2019-12-28 Office [facility] 1.2.840.114 [id number] Univers 09:22:44 09:56:04 Visit [facility] 350.1.13.10 it y of [place] 4.2.7.2.686 Frankie as Professio [phone] [address] 2019-12-28 2019-12-28 Outpatient [facility] [id number] Univers 09:30:00 09:30:00 [facility] 2019-12-14 2019-12-14 Refill [facility] 1.2.840.114 [id number] Univers 00:00:00 00:00:00 [facility] 350.1.13.10 it y of [place] 4.2.7.2.686 Frankie as Professio [phone] [address] 2019-12-11 2019-12-11 Telephone [facility] 1.2.593.203 [id number] Univers 00:00:00 00:00:00 [facility] 350.1.13.10 it y of [place] 4.2.7.2.686 Frankie as Professio [phone] [address] Office [facility] 2019-12-02 2019-12-02 Refill [facility] 1.2.840.114 [id number] Univers 00:00:00 00:00:00 [facility] 350.1.13.10 it y of [place] 4.2.7.2.686 Frankie as Professio [phone] [address] One 2019-11-15 2019-11-15 Office [facility] 1.2.840.114 [id number] Univers 06:58:39 07:13:39 Visit [facility] 350.1.13.10 it y of [place] 4.2.7.2.686 Frankie as Professio [phone] [address] Office Building One 2019-10-27 2019-10-27 Outpatient R JENNIFER [facility] [id number] [facility] 09:55:58 23:59:00 [facility] ity [facility] 2019-07-20 2019-07-20 Refmaddie SheriffCIBOLA [facility] 1.2.840.114 [id number] Univers 00:00:00 00:00:00 [facility] 350.1.13.10 it y of [place] 4.2.7.2.686 Frankie as Professio [phone] [address] Office Building One 2019-07-04 2019-07-04 Refmaddie SheriffC[facility] 1.2.840.114 [id number] Univers 00:00:00 00:00:00 [facility] 350.1.13.10 it y of [place] 4.2.7.2.686 Frankie as Professio [phone] [address] Office Building One 2019-06-28 2019-06-28 Office [facility] 1.2.840.114 [id number] Univers 09:34:17 10:06:56 Visit [facility] 350.1.13.10 it y of [place] 4.2.7.2.686 Frankie as Professio [phone] [address] Office Building One 2019-06-28 2019-06-28 Refmaddie SheriffC[facility]OLA [facility] 1.2.840.114 [id number] Univers 00:00:00 00:00:00 [facility] 350.1.13.10 it y of [place] 4.2.7.2.686 Frankie as Professio [phone] [address] Office Building One 2019-06-21 2019-06-21 Refmaddie SheriffCIBOLA [facility] 1.2.840.114 [id number] Univers 00:00:00 00:00:00 [facility] 350.1.13.10 it y of [place] 4.2.7.2.686 Frankie as Professio [phone] [facility] [address] Office [facility] One 2018-12-09 2018-12-09 Ambulatory nullFlavo MNA [id number] Memoria 20:45:00 20:45:00 Pre-Reg r Neurology 03 l Juan Seay 2018-12-09 2018-12-09 Ambulatory nullFlavo MNA [id number] Memoria 20:45:00 20:45:00 Pre-Reg r Neurology 03 l Juan Solomonann 2018-12-09 2018-12-09 Outpatient MHIE MHIE [id number] Memoria 14:45:00 14:45:00 03 bonnie Dillwyn 2018-12-09 2018-12-09 [id number] 14:45:00 14:45:00 John Daina Yonathan 2018-07-26 2018-07-26 Outpatient MHIE MHIE [id number] Memoria 09:00:00 09:00:00 02 bonnie SolomonDillwyn 2018-07-26 2018-07-26 Outpatient MHIE MHIE [id number] Memoria 09:00:00 09:00:00 02 bonnie Dillwyn 2018-04-26 2018-04-26 Outpatient MHIE MHIE [id number] Memoria 08:30:00 08:30:00 01 bonnie Dillwyn 2018-04-26 2018-04-26 Outpatient MHIE MHIE [id number] Memoria 08:30:00 08:30:00 01 [facility] 2018-04-04 2018-04-05 Day nullFlavo [facility] [id number] Memoria 17:57:00 04:59:00 Surgery r Dillwyn [address] [facility] Sp[facility] 2018-04-04 2018-04-05 Day nullFlavo [facility] [id number] Memoria 17:57:00 04:59:00 Surgery r Dawood [address] [facility] Sp[facility] 2018-04-04 2018-04-04 Outpatient Kimberly Ng [facility] [id number] 12:57:00 23:59:00 Han Cowan 2018-03-30 2018-03-30 Outpatient MHIE MHIE [id number] Memoria 13:30:00 13:30:00 00 [facility] 2018-03-30 2018-03-30 Outpatient MHIE MHIE [id number] Memoria 13:30:00 13:30:00 00 l Dawood 2018-03-21 2018-03-22 Day nullFlavo [facility] [id number] Memoria 19:01:00 04:59:00 Surgery r Dawood 01 l [facility] [place] [facility] 2018-03-21 2018-03-22 [facility] [id number] Memoria 19:01:00 04:59:00 Surgery r Dillwyn 01 l Orthopedic [facility] 2018-03-21 2018-03-21 Outpatient Kimberly Ng [facility] [id number] 14:01:00 23:59:00 Han 2015-11-08 2015-11-08 Bedded nullFlavo [facility] [id number] Memoria 18:06:00 21:20:00 Outpatient r Dillwyn 00 l Dandridge [place] 2015-11-08 2015-11-08 Bedded nullFlavo [facility] [id number] Memoria 18:06:00 21:20:00 Outpatient r Dawood 00 l Dandridge [place] 2015-11-08 2015-11-08 Outpatient Guerrero, MHSL SL [id number] 275 12:06:00 15:20:00 Sheilendra 00 [facility] 2015-10-24 2015-10-25 Outpt Diag nullFlavo [facility] [id number] Memoria 15:50:00 05:59:00 Services r Outpatient 00 l Imaging Dawood Gatzke 2015-10-24 2015-10-25 Outpt Diag nullFlavo [facility] [id number] Memoria 15:50:00 05:59:00 Services r Outpatient 00 l Imaging Dawood Gatzke 2015-10-24 2015-10-24 Outpatient Guerrero, MHOIP OIP [id number] 09:50:00 23:59:00 Sheilendra 00 Glen Results Test Description Test Time Test Comments Results Result Comments Source POCT MOLECULAR FLU 2022-08-25 16:06:41 Test Item Value Reference Range Interpretation Comme nts POCT Molecular FluA (test code = 98453-4) Negative Negative POCT Molecular FluB (test code = 14411-5) Negative Negative Lab Interpretation (test code = 31705-4) Normal [facility] MOLECULAR [id number] 16:06:41 Test Item Value Reference Range Interpretation Comments POCT Molecular FluA (test code = Negative Negative 90017-2) POCT Molecular FluB (test code = Negative Negative 07928-9) Lab Interpretation (test code = Normal 99291-5) [id number] 16:19:00Reason for Exam:->Morbid (severe) obesity due to excess calories [facility] : 1965 Sex: FFINAL REPORT [place], UGI, WITH KUB CLINICAL HISTORY: Morbid (severe) obesity due toexcess calories COMPARISON: None. TECHNIQUE: A paper supervisor abdominal radiograph is acquired. The esophagus, stomach, and proximal small bowel are evaluated with single contrast technique after oral ingestionof thick and thin barium using real-time fluoroscopy and acquisition of multiple spot digital radiographs. Patient could not tolerate gas granules, could not perform double contrast technique. Fluoro Time: 1.4 minutesReference air kerma: 125 mGy FINDINGS: Assembler Equipment radiograph findings: Normal bowel gas pattern. Esophageal [...] unremarkable single contrast upper GI. Signed: [facility] Verified Date/Time: 07/28/2022 16:19:45 Tissue [id number] 18:24:44 Test Item Value Reference Range Interpretation Comments Case Report (test code Surgical Pathology = 104) Report Case: [id number] Authorizing Provider: Charo Wise MD Collected: 01/09/2022 11:31 AM Ordering Location: [facility] Endoscopy Received: 01/09/2022 03:51 PM Services Pathologist: Evelin Wharton MD Specimens: A) - Polyp, Colon - Right/Ascending, ascending colon polyp B) - Polyp, Colon - Sigmoid, sigmoid polyp C) - Biopsy, Gastric, random gastric bx DIAGNOSIS (test code = [id number] 3220) FuZzEwMzNcZnRuYmpcdWMx IHtccnRmMVxlcGljOTYwMV krudYmESCeuJVqZ5Mzhflr HXskOH6eWG9jbOcwwFCafV GpBTQxLzTbo8ynr763sPTu o2cfUFGVlygetId3pWmyJ4 7ch5E1BirdW27zxHDmMVE8 XNXjWURtvXKyCMAqIBO7UX GswZWnW6esKESdLH0funce LNlmDZqiLCNjlRP1NAScbB UjN9RnUHKsXEygFUPhjqj4 AkTcEk7jyMGphCbrULkbBR XxWLWaEIekCRCrHuReTS6v F16LE23nWATID6aLO8TOV6 OONQvSGeocAU9BZKLMY1XX YXe4MSRizoo2HHMyVMCDBV SZKJOBJODMKM9ZXOKhrCKx LQTcqzUZZgGHH5sXIwkmK4 qVPB7IJMhuBJ4UHLINK4XB UCw9PTAmqei6EDQnIFNULF YPOJYLSWIHCB2DUACxDXFg hpngNLRyGe4bR8FMEEPRLB kjF1hLAJNCB5KaN3MDZ8gX ZHGMMHIUHD2UX0ryiHWkUP RhYiAtIFJFQUNUSVZFIEdB M7PUY4UKSWdCWVWkzbr9NG PtQJDRAVbZTDbLJC1KU10G KBVANYSEDO3MXUILUYrTQV 9HSUMgQUxURVJBVElPTlxw ENGqlPLpKD2xZcZURSFGLi MzRz1EKKgSWHqRU8BCG0KA IrQBFGNGY81RN2TAOJNFXq KAXmYRG5PIFP4RIWVRTMdF R7mbDGV5n3qlzPBeBAFilA UxODAwMFxhbnNpXGRlZmxh dirqOERqPJE3juYbNATpDZ mnIKVkSUrqRi2ssYWzhXpa WgZiNNQik5kfquQDzpduiK f2p1kuJXSsUsN1kBCdVCeh I1pfmpBsgKEmVXRwCUj0qV 94KXJznU0qyKWgFPiwmlDo WsH6SNwcJRQnPrW3JCXlqY QhDYHuB4nkRNHxXHeqPHBe TOngeUErKQA5gTfth1P0yE VzaGVldHtcZjBcZnMyMiBO c9YnNSn9dUumI9IvHIBiDe I3oHDjSLVhUXphSVHbQETk wjH3fE22HEcorfN0rZVou9 Gea06tf191qE3cqSKlPEB2 LGTbKWAlmMSwLHNtUCB3XT JkdWNqL7pcIKJcHH7ylkny UMubUWniINOjfVC7JGJkjW SuQ7VlOTNvEGvbTHEqcec2 IeLkMa9kjIQmuPcqIXbjs7 nkp6gejEEiOsr3UOPuNdRw FzbcMSwke5Qen5mbGDNqkv 7yYEM9iOAyiFdzn6J4dSIf GWWlwJWhDUViCH0xeJSgRG CdgH4kmiwlQWKvMoSyfykt IVYtnAftnaQdIg5vpLsgOH S2XSmmS8gfkH2yBfR4SKpz W4lfrO3eSHs6ZLivQIPweT I3bbX1RHSyyWJkJ3BnhU4h CZNkAA8rifo8d5msPJC9CZ txORZtJvT6dlI2NQBzeSTv UQSaxHgdVXjbk164QTH0Pi UhHAUdz5QtU5HwrCidT71f cVrmV53aIKNlmPefzD4zoD uhsI0eWmGcIeOeVKgsdDof CD2dEFVsG3uokMNgAQJbIH GmT4kgRmHkdX3rpQlfYDlb kpZpCYBqJvz4EDIyuYTjLH LuBsc1ENFwQJPeS26phnid JQW1yX4ts3nni8IkTGvfYJ S0LPPrm45iQUdjkdZ9JZro Qf90RCnoADW5WHdlWCE1gA == CPT Code(s) (test code r8qyvDMyGSDdhVV2WzMbJT = 3357) Dyk0vgq3OrcLUwpESfGBil dSGtneYbro10xPL9rM61MB 6zGBWeJcD7YSPmxzI8Has1 RREaGCGnfOViV826j5bqi6 dsayHkwEX0cWzsEOEhqkdp SxV3HLanVJMyvqgoCGg4SH phRYLrhXX2PKNroUUaX8Hr RQGtXX6kdvl2FYD8VOyhLU NfNtA3QDDeiLWfLBUbvIzq BHrmm546CSK0OnQoOLAdar FqcSbzlN2qAkUdYZH4UKIq NVgzXHBhcn0= CLINICAL HISTORY (test u0dyaNKrXPIteKD4DhIvFR code = 3356) Ytb4wcd0MbvOKknZVaZCdh uYZvnuFuot12xEV8sT82KW 8aMMDeHyW9XXGwhkP4Afg7 WIChPBPgjXHwA183l8rib2 hdfdMhxOP1vZhkMRLhgfua AiM6MItfRLJfcysbNRa1IX nbRUXdiZE2XPKuyNPaZ9Aw WGFlZH7vnmo6SVS9RUoeLW PePlF4OEInpNZjQIXpgYeq TEzyu556GMM9AdUzRGXdzb BgcScfwI6gOoIoWGSZVHD3 vn2qm61xgSXkLJDmXPGwDj k5zXVuaCJaSFEiRASyo7z3 qFHhXzFaj9jwltpbGAD2 SPECIMEN SOURCE (test v4hrzOVcWHLroAA3BnRmEZ code = 3377) Szx3jbk0YbpRFgmCYoPZga cTRyekPrsx97zRT0mQ59OG 8gJJYzNvN1OUKpljT2Joq2 JMBdMAIoxVJiO928q8dyu9 twzlFkkND3qBgzSWDklsnh UtV8KEqzXOFuhgazQBf0TR wjGVZajFZ4NRCpwFOuR4Md YSKeBG6yawq5ZZA2ZEviMF RqIoA3MDYkkVRuBXYuhRiv ZJson056MFO2CkOqTEPzvz AcgAmewF8eCeSrIOFTMcCj OO3pkBAwOLLrzM8hMWHqE3 x2F9ZwH8DnGDybJ3hotB5b HQYrPWJEb1s9lIhpE14oc4 9iu6fwbW6zYJfmzT9uHBWu RKQAfK7xe1kyASoxs6XmkR MsIHJhbmRvbVxwYXJ9 GROSS DESCRIPTION (test p8wqwIBvZDJqbTXsBwMxVU code = 3366) VjRRKps6jpMFMlkPGoVaIh MzNcZnRuYmpcdWMxXGRlZm Dun3vvd216mMHcn7anQWAS vbdzyQb3m7rwLYDeTiZ9zI GyQZdcT5sgijHvaLRtNWTu ARu1fP77ZCXknQ5duWInJQ aajtVkKhS9LDbjGHEbUpH0 FBIzuSHlQOQzJ9nzYSTaWD aeGACnTCehrNDiLJA0kAmb o1N8kHUrjCKuxOfwWaLzEo JoOTTRg1XdKLe7cScbD4Zz VOEbHvC7bGBxHRMmEAjvEB UxOOYmeyH3wW16QFhxkxX3 vHZrk7Pee24zh104zX1lbW XdIAW5CNWjISVliKQrYMPu FFS6OXIjmECgI1d4NhEsgH ChM2F2XqDmjEGlO3U4WvRp qWFtN9S5HfTqrDNmEPRqoZ QvSy9gzSMfeHSwzq7zoi11 VAI3a6UhiPxzUMJ1UXB6Lz IaEq2bgVKpSKUgASJsoLGf TOTpUY9caQHcJTPvoF1ikf xjXHBnYnJkcmhlYWRccGdi ldAgVs4qfHolHXS5WZhiM3 vcmS8hNmT0EZmxC3oydW2a OSa2MLtlzCX0WJItzH5bEI 3uuefhp4vdMhAuZH1roeen c0qbFxNiYL9khps3n5qjWu SeTE9tvphrr0ujDhOcQDyg OUUyjsyeXAQdk2UtfavyTG Yfq1MzL9UvlKdrN56bgXxa K17kARCevKjkeC7qlNhgqK 5cZjBcZnMyNFxwYXJkXHBs YWluXGYxXGZzMjBcbGFuZz EwMzNcaGljaFxmMVxkYmNo LKCvFQpkU3euPwHzHrXuBB BBLiBSZWNlaXZlZCBpbiBm y7GeLWeriqGcEAQwoJRjHH dpdGggdGhlIHBhdGllbnRc G8I8ihEgHU7rWFSyRYYeA2 MjXEYwG61bSIHvnL2hEYLs VW7yHMSkz2SwuiKpdjcwF8 6ak89doY8pgTIvFCNtLTWq n08gwLQ9ziMnJoDtDANaLB OtWB4lIGWjaqLdg2I8ELDu k6F3YIDsZMPkcRZyhsahLI 85ZEnfCP46KNrbYF1cJVYq HyCPsJKdh6MjO0zgBO8smQ Mez0UxsQm8cEXlNLcfPLTl vI2amD5nHZTxZQwyqxWwwR luZSBCLiBSZWNlaXZlZCBp gsWwg8LrSXivrdNrFFHyoK VkIHdpdGggdGhlIHBhdGll fqMsV8X1pkBiET5sXNGqHW AkB1ErQBWpL23tOFIitM6x KENnVN3lWOBqgTcrt7gkPX VzxF1nVJZnpZfcBuBdriNz U05jx6kpdJClu7XrFnUfbO MgSAUux3JcoFLdMCQngirz h75ypHZ3zPPfyBOqhySlT8 qpPaVhqiHclTvwBWKco08v SU96JKbiPG3fSCzyAI0lIF ZdIJPxNZLkCHG1DZQzUkL0 IDAuMiBjbSBhbmQgbWVhc3 KpcW1tAEVdClR2AKIpArQ4 IQXtNyWvrKTwdsWpL2zmQH ohiOYiUFBrBCJwbRIbdY5j xnNajuHatJQzkLE5UIKwpL 6nwU23paXavdSPHJ2xnBlh TQsmkE2jISXhTYKmM2Mmsn EsEVteOKYqwk8igBmeYOwt VlXdOJMke3j4gVW9uOLwaW P3fWAfeErsVhOfJH2fnEQy KJ7nIIvxEDmlshTto1YcWJ 34pVGjttPaehUpPmber7Wu gWAyJrsyITKvJBOvd52gqW Z6alEjNzR1LPWdVHKrkoZu TzT7JY3qtZcffuGga3O4WP Bnv7Y2INGtHB0xiI8bVOtj IHNpemUgZnJvbSAwLjMgeC RrPgYrtUEuGgMuB83meR8n KA59WJufUS9kLNwkAL6cAG NtIGFuZCBtZWFzdXJpbmcg OJ7zGWvdUV99MQkvGF7gQS ZmGDnbSUGpL6KsG4X0QM1w VGhlIHNwZWNpbWVuIGlzIH X7Ag0xkCKoDKBrxuG6h1Vu CNyuAHGvYjbphB6mXWqjlm KjT4uYRWWfln5= MICROSCOPIC DESCRIPTION c9xxcZKdFRWoyLK8QkWrYJ (test code = 3371) Vcu8via8QwzOOemISyZYcd wHPgnzRadn50sIZ6kR49AO 1eTRFhMhI3SXXdbwU2Euq2 OALwXDEemVBtT667j9pao3 lnvlTdwQQ3uDyuNXRwxcgp IgG9HEmfDQFofblrAHy3SL rsFBMhhPO5FDGcuGAtC2Gf GQPqDF5ouko3UDQ2PZyuFB PzCyS8QAOayLMyZVCkcCof FZpvw305NPJ3ZyDgUPWchj UvlDwdsI8jIrHcJIGWSHBm YO3bKNgjT0oaN1YfYRKdZY gnaVlme0obYM8qBZ8sfMql wxKxC8aedUBxaOKhnpAzUp atGG9vHSHlkwptDYLxEj1s Sq3ep2ynducdpYSqgtKqmB 0kjEZjaKP2nT2jDZKqyaOh z7BpftHqSJ5tsREqtCJwzZ AmGOG2g0YxOAKdZMMrydZq GYuaE58jisR9GLbbBQChFD 0bXK3yIJoqrJrjt3QnJ4Ym ofZjyYAoi68aL3JejUFqlu ZphjQrj0MdjkAwtiBwv5A3 yS8gTUE5DJrguf5sZLccTH J9 [facility] [id number] 18:24:44 Test Item Value Reference Range Interpretation Comments Case Report (test code Surgical Pathology = 104) Report Case: [id number] Authorizing Provider: Charo Wise MD Collected: 01/09/2022 11:31 AM Ordering Location: [facility] Endoscopy Received: 01/09/2022 03:51 PM Services Pathologist: Evelin Wharton MD Specimens: A) - Polyp, Colon - Right/Ascending, ascending colon polyp B) - Polyp, Colon - Sigmoid, sigmoid polyp C) - Biopsy, Gastric, random gastric bx DIAGNOSIS (test code = [id number] 3220) FuZzEwMzNcZnRuYmpcdWMx IHtccnRmMVxlcGljOTYwMV dbmbIzCMUodRXsE5Uqfaml TXqhZR2lAY3ppCkkkPTqrT SzQGGlGyDkn8mpx301hTYm k2yyNZALtdcmeGy8rCaxR9 1zy8Y2GnhuN34lbNYpOQS2 SMTgVHFrlGFvIVGpPMR1XS XafKTfS5fiZRCsLJ3yjqif QCtqGLusMJFpeVH6VAQveQ XcA3TqSXQtFMpaKUKteqb6 SvPyUl8uiSMskMekXOpjDB UwEIZuDHidDYJxXxOnRY4j L55LV87pFJPNY8pTN7KQM7 FSWGpYRcfaKX3FWODCT3BZ AMf1XPXwdxj0JYGyCEGFTZ AKEJNSMINZNS0BLYGtmLNr DWPidsNIDnJAW1xQPzegE7 zAKW8LHObbZG1ONNVDF5TQ CSy7ERXndpw8SQStZYQBGU EYSFPBIYORZR3QVZBfZDPd trdiMFJnGh4wX7VMPHDOIC yeM8kLFQEOP2MsW2GZH9vD MJRIRIHOFA0UC3otkJCjSN RhYiAtIFJFQUNUSVZFIEdB N1WAM2UPCSwZKMWvzsh6NT MaCXSHGRvECFpLXY7EA62N BLTIAWQTUJ4DCYDAYLsAVB 9HSUMgQUxURVJBVElPTlxw VLJjpBZlKI6sCpHOVUPZDs QjMb9GNMkSGSnGL4BDA6PG MhIJOMQJH11LI7BFELYTNe WZWhJBZ3UQWW6NIMRGVBeN A3cnBFV6a3txaOJxDODcvV UxODAwMFxhbnNpXGRlZmxh sjsvJTUpVNK0ucWyNWSaHA czEKTsZLjuHx9gmBFpkHjj ZjIqNHFhc3kluoMSypmfzS v4u1gcQUVlTdU0sQWsDVkl P7snjuXbqJOwNFIxKQz5rE 04VYRobE6rrDCsNScrlvHw YvF0PZutVAQnRmD1STOkqO QxECXoN3uvEQSfPAwyLQZm KQtnyPVnPJU8gFsmu7E4dE VzaGVldHtcZjBcZnMyMiBO y5OzDOv1uLyhN0XkCIToEl B2tVAxRGRqHDrbFTXgCASx mnB5nB60RBovjvI0xMUjh4 Spo08bm736bM5eqTFzJED5 NJElQGAlsXJzBFMzGGG6XT MmsHJdO5gzIDZtCA3aklfv JOpoYUmzEZRqrFA5UFPguA YlD9WaIBLrWHbdATDzyoi7 KtVdDc0jlJEmfOmqLZxfc6 hxk4ynsZVqEch7FJAfCoIi UdsvCLqar1Xyz8gdHODfpx 5sZVJ8tODcxJnnq7Q4gFWy RALtlUWnYDHxBJ2kqSNmCT VznL3docivGYRnLyOmftxd TPIerNqktuPnQg5yxEmqLZ F6EXaaI3hnzR7oVcE6XPof L2tohP5vUCu7RByeRYHqrU S9ypD2GLHblMFxS7YmcE2q GABsHF8dqjm7t6dkZPB0DI jeUBJsVfY4eoN3HMFimIFv JXWtbZljGRfmd492FOT2Zg GrVFDer2WwG9ZjjVhiF24i zSjrW14lUWWuiPfcuE5iaC ewiY5tMmVxMwTmIHofaRfa LK8yOGTgU8zxnGFxKQDzZW OvR3qyYpXtaW5dcZtdUJli vtPsEDNiOvp9VJIctHPlBD VeImq5FZDaKWReW03pvxtx XBW6eV3ra0yzg2UqAEnwAM Z5GOImh76rKZvowvK4LLyz Ir79YZqqFWU7PNepWWC6rS == CPT Code(s) (test code x8bdpAHjRFZlqZX3MvAyMH = 3357) Ilj5lks3HujRPscHIeVBsb nKRoxmAydz49uFZ0iU78UV 7bTGGpMbG4QSIgkdK6Ffn6 GTVfKFQwwATmY055l1ajo0 xyzaPlcRP3qTfwIHZaqkkk CcQ0JUaqKSCxxnsoKXi1EG jlBXMlbZJ5KDWprZCoK9Tc VVSxAF9rtuc0XQD5UQhoEP UmLdO6MVWehZQeNFPloRrz NNrvs696JIE7NqPtATMbtr HwsOfznP5cKuVoZKD6WSMg NVgzXHBhcn0= CLINICAL HISTORY (test f2qfhZOhJNJueUH3XsQhBU code = 3356) Rhx4iaj6BzbMLuePJgUZzl qACeqnZjth47tOX7nF14DX 2rWXRoDzC7LHNchtY3Ypb1 HDAjFRMmpNTsO477b7fdb0 tiuvCihZK6aZbdNXZqqase LpY5DCyeGSXoapwrXHk3UI grQBFghHC4FGOmwWSgB4Ow AFPqJG2darw5QQI2QXflAE QwKgX6CGYleHSrRNKwoQki ACvur988JLY4UwVxZQFcjq OidFzqvC7qTaSsHOFUFMB8 za4zf37urMLrECRhSCVwIq v3vLTapVDoSAZvOHMqy1l1 uSWaLaCql8anvqicDDA9 SPECIMEN SOURCE (test l6rbeFRwJIFnhWI2ApTjOL code = 3377) Yvc2hbk1StnBGnjCOiZEjo pBAfgkNnwj34kAK5fZ41LZ 0pXAUoXsY5GJLgpqS6Iag5 YKWxUFQeeTTpR059e5gjm9 yonoSbiHN9vSegMIRvtrsx LcQ4XXkbQDJmcqouENh5EC aiKYVtyUP2DVWtwDPjT9Mk KOVwFO5vxul6KLA5CYaeYM RhRbW0HBLrzHPqWZJilSri MGqns630VRM4OtVsPOTkid KqrNzmsZ4pIrSsMSYFHnMt PL6bsIEbWPIqvB7bZHDgB5 q9W7SmK2MpEIoiC7erzD8k KQBsIYTIt6v2eGzvV74mc6 1vr5wgzW4kZLxwnO6gAAIz NSNDtS7me5gnKIvvn0CmcW MsIHJhbmRvbVxwYXJ9 GROSS DESCRIPTION (test e2tseLGkMFTwgDVuUuUwNX code = 3366) RyUQUau0nqFOGnfZWxYoYp MzNcZnRuYmpcdWMxXGRlZm Qtp9toy221tPZuh7jlWWZY hpautKb1u9qxWRNrVhO4lE ObJDkwR3klakUxsUPoUJAl SLd4nA44KAYiaF5spTXzZZ uutxJjVlA2FEitSRPbWcX8 LBMznBEzOVCsH6toRQQpFO bvBBSoBFtapGZpPMO1sGsc a4O4fFAwmALuxMmbUnEjGo TlZHTUn8DwVYg8kOflR6Dz OEDdAcQ2tPOlXPOrNFqcTK QiERDbarF1hM61CVgqdjQ5 tAKds7Xdf55if872yC8acQ XwNMR0RUFcWLJttDDxLEVn EQY0CSFeyZElQ4n0AxLljQ QcV8T9OwCagMCxU6M0MmVc oPGoP8A8LcXtmQPvKULuqA AtNx3huHPewZGvaz6rab86 FJA5x4ItgRuvETN3JRV1Dd JoIu2ovINkADHjKKRkvKGi XOKsVC5gvUXuAYNwxK3jbs xjXHBnYnJkcmhlYWRccGdi bdVfKf2kpUmnRGO5IZpiP3 risJ4xFbE0GShkK9zszQ0e FMf6MYogoQS0PGNyqK9bLN 7gdphut4qqAzJwPR9qndyl v2lmNgMtJW9cxba6f1rsIg XgMK2dldaos8ocNcIkPPge MXOxrazkAQDcn6JkejwgOO Gsz7LrU1PdzZzyF62jsGne A69wCIZzbRpuqL3nzQpcqS 5cZjBcZnMyNFxwYXJkXHBs YWluXGYxXGZzMjBcbGFuZz EwMzNcaGljaFxmMVxkYmNo DJKgBDaxJ7vtVpFtWdBaXC BBLiBSZWNlaXZlZCBpbiBm i1MpTUpyspDtXDRusLOkOX dpdGggdGhlIHBhdGllbnRc K9K2ujTvKK6hOQZzAVDuE6 FvADHzY18cHMHrxF7cSKFu PH8dNSAnc6QwmcAuniudI3 6dt57jhE6klWCjQQTaDVHy r26baRY4qqUtPmMaWCUoOX HmGE8oNEEtgnFyu0L8PTPw r9O5QOZzDNEkpVZwwikpYE 82JBvnWS11AZffMZ1xRUPs GgAVgWTpm1JjZ4lgZG6pyU Okx7GmuPp6eZQaUEsmTYZq eB1mlC8mVRHkNFfnvmYacZ luZSBCLiBSZWNlaXZlZCBp iwTct7QbWXhghqHgCKVfoQ VkIHdpdGggdGhlIHBhdGll miNmQ2F9zmEdMF4zDRHzPB ExD8GfSRDyK49pRONehH5k WPWlBP3vLTYfjSedc0dtUN MeaL7cPBCfqXnpUeGyanFo R60zi3fotIMap5BuImHqxK KjGDImc6IfqIHjALBsbgeb m82ovRW1uMCuoRYehtRaG2 egXiVlkfAulQseDKDdx34q CA35WJegRC3xXKeiJB9vJC DkYOJzESBpXES2WXHhEbO3 IDAuMiBjbSBhbmQgbWVhc3 YkfN2nYJJqXgD8UHSfIxI9 CEEqNyCbmQMgbsLyZ1urMT kwkUMdLCCcTDWyxNGleX5o emIzvuBseXDazPI1YWLwjK 0ewL24ihXhhtKSDK4kzObn TPswjR3bFFFdSBAzQ9Hldc VcSXuhBKOajd1usRtbZEpa GjGlCPHei3p8dHR7kMWufG B6iWFwsUzgYiMrFS6qjMFb AO5wOVdnGQedufIxi7OzVW 53yNShezEzvzIzVlgbw8Yt iVEhNppoNEQvGMUtu37yxM S8ohAiAhM7VOYrJGTvicPv UgD3FG8waDcoaqPws6F3SH Kgw6U5JNYwDV0lyQ2gRKqu IHNpemUgZnJvbSAwLjMgeC KgGkMhmHIyPqCdD63opV2g RC26OEdeVA1zFRkcJT7pCY NtIGFuZCBtZWFzdXJpbmcg BK1iAEppVE87VGlsAN7oFB YoBAfvDPFdJ7UsP9X6PH4a VGhlIHNwZWNpbWVuIGlzIH B4Ci7dmDFnHNEzwxT5m1Db NElsNQMlFkypoM0aTVpmcm DiJ1eKSKMvkf7= MICROSCOPIC DESCRIPTION q1ybpUKsCXGiaSD1RdFvJP (test code = 3371) Sfj3bhv1SjhMZckBCvDNco fCTyhcNnfz03xLB4vR47ME 9dKVAhVdK3OSYrwsU7Yvb8 KSJzTTCyjLQvI373o4bvx2 ryqlVdmYZ2eRakBMJexvvv RnM4PGlsAQRjtblaHOh3XQ rsNVTyjCF8TGEyhYBkG1Vy HDPfVA2aewq9IZJ9LEhtHA QcNcN5HFVplXXnDTSawFhh ZPmpl102OMU8DkNjRNCbsk KdaMwzeA0aMzMbATMYMURt XC2gOOvvY8ztH6RiEPBcUC cigInmy1ezFC6fAH3bhSbk vjRuX1osoVEcgXRneoUyKm svMF1qWFSkoqwpWVEaIm8z Qv3lk8ycydbzbGCjrgIswJ 3ckOZnfOS5iP1gNUMhgcPx a9KzioJcVP3qkMNsfZSkiT OmCTF8l8OwWHHgDCLpqmBa JXbpD06okbC5JBryMBFtXC 5gBC3qAHuqqZydl7PyC9Tn qsDpeFGvx39vM5JdsHVlwv GorlZfe0FturAsonYpm5M8 dL1lUTU4TIlhdt9tYUfjTQ J9 [facility] [id number] 18:24:44 Test Item Value Reference Range Interpretation Comments Case Report (test code Surgical Pathology = 104) Report Case: [id number] Authorizing Provider: Charo Wise MD Collected: 01/09/2022 11:31 AM Ordering Location: [facility] Endoscopy Received: 01/09/2022 03:51 PM Services Pathologist: Evelin Wharton MD Specimens: A) - Polyp, Colon - Right/Ascending, ascending colon polyp B) - Polyp, Colon - Sigmoid, sigmoid polyp C) - Biopsy, Gastric, random gastric bx DIAGNOSIS (test code = [id number] 3220) FuZzEwMzNcZnRuYmpcdWMx IHtccnRmMVxlcGljOTYwMV oyeoIcUIIedUBaV8Ewgajc SIvnAU9zGE2zqItotCSdgS QbRAZtYlBst8iff448sGAg v2uxERBMrsepzEz2aZorQ8 3ec3P7VnipD08psNAfMGX8 BLCmXZJquNZwMTNmOYS4QQ GthDWqL8nlZYKpBP8fdnwb XJkzJLovPTBbeAX8MQFkpU JpM2XrJNZaCTtvYQLiepb5 PfIhLi0uaCQlgNvdAZmlXQ YfYMQrNIvjDEVgImOrTC1s U13UY53gPAXPZ5pBV0TDU7 MZZIdRRilsPL7SWAPZY1GI CJd5BOXdwfs0BBApQBSROW CSCRBQHYUOAJ6WYIAhjZBw CSSmkzZXCoOZU9aOEpovR7 rUFG2OOLofAG9THWIMX3SZ CEn0LCDfnwz5AEHpVCIIBL LYMLWZDFGUPZ5VOCXsBCLn urkkILXtGx8nQ8EHUEDRGQ ewW8vNBBKBE0RtU4ZRD8iL KOGPFALBJJ9JB2xkqCLpPY RhYiAtIFJFQUNUSVZFIEdB E0BJA9IXVRlZYFNyydp0II FxGIUROHkJSAkMOS4WT54H AZQVCWZZFK3HAZEZAKoYWF 9HSUMgQUxURVJBVElPTlxw SPHfaQPwQL7hHoOEHHULHf UcWo9OXZyOCWqVK6ZOQ1MF VmZRNMGJQ86JW5KFXYSYRo JYXgUBM2JKVR9HSFYHDVmR J0meUYS4i3ahbAJaUWHgyR UxODAwMFxhbnNpXGRlZmxh lwwhHXOeIND8odWgYIVqXD liQMQaDKciFw0zjBEloGmw ClPgJAGwh8pmhkJOfbrklY h9o9lnFJVlMqT4uNXvRZbf T9nkdtBcwGEgLPQvPEz5wK 01VKFvpI9zoDJhRTaxatOg JcM6XCcnYICnXiE6AYOawE SxUFAlA0goZWTtGUwqMHTd MQnzeTKfEIV2dUkka8O6dX VzaGVldHtcZjBcZnMyMiBO q9LwTDm9eCvwV6RhQEOgVz P9pXLpOFUdQTcbKRTpCJBj rjN3pV64LIncihD0aFPxo8 Dbk00al122dA9lbJUcAVA6 EJOyTAPqnRLgGLFpHHL3KE AmpYUsE0tlVUZwRY7jxgij RGcsRCzkUZBhpTD4EWEanH JeY9JxZWQdHPdwLCVcrpj6 YqXqSv5jaNClrTkcIEtcl5 uxi3hndDVbHfs2HBUhRmGs KbrpRTliu3Dbh4rmFGEelg 3fRRJ5nGKrvFymm4D9cFZr QFLbvOScIGXkWX1hyXXaAF RbtE8lhnbbKGDkGgFjcmtr LKBqeRyyypCiNq1zfPwuLK W7FSbyN8yfmZ2uSuI8VXdl Q1almB3nPFj4VPuxYBFkbJ Y9khS9RXNbtNKmY6PgmM2p TGYtLD8bmjj3d7bcNBW3ZQ mjCGTiWhS1hmY5RHQcfBJv EULunYmoDMeru674YJW1Bi ClIIFwn1ItM3CndWooK41d bTbkO87fLLEebEtmzA3dfZ zamQ7lDqVjIgBxWEizbHzv YR1dANChR9espNNqLKEhGS XwN3atVpNnjR0xnHbhTXlg tfUbXTJiMss3OQYrtXGyZQ WeUgb4SRKkUSKzD32vmjrf OMI4zK1js3qqs1IhHLahTK F0EOTiv14yGMwanhW3BMic Oh46ZYrsTIK6MRksXKV0tN == CPT Code(s) (test code c4mhnCXvMFLjrWQ0NlNyCI = 3357) Lsl5knm0IzxWBqzKUzTXnq fWDcgcQuwq76pHL7eM24UX 4zOGPvUlQ8TWHxgfO4Dfo8 SMHjYNMkzYOgP880n5wix1 bezcByhRM4cVhlKXVwtfdg IrW2WLhhOQPwqpsgUBt4XJ xzRCOhhVI7BQPjcULzI8Mn GKRdOF5trzl1YAW7JOouTH ZnRjH4IWTpuAZyYPWunXad XPvtu799JYO8ShUhOTVudx EayUjqpE7bMrExRFC7ENWy NVgzXHBhcn0= CLINICAL HISTORY (test m2txqNVsUOMwnRA9DcJdJD code = 3356) Vzm1gji2DuiEGedNNsXFvd aUZzbvHtwd26qUB9uC37RB 3dVFIcWfV6HEPtvzC5Fae0 GQPtGLPioGSbC278s8hgo9 jojvAsoWE1jJypMOIosegf ZvC4PLxmXFKquobyTJg0BT jaENHjtLH8TQKcqXRqM0Uu WVTdFM3evmp9SVQ7EQuzYO JtNvH9HPQowMFkHKBbyMhs OFpzc579MLF3MnJqKLAqfw FmePsqxP6hErLcSFORKCR9 xg4rz40vhGDoWGNsPHFvMc y2iJWdkHKzYJUmYGKvf2h8 sFGdQcGuf2wmyoaeXIC8 SPECIMEN SOURCE (test x0nwjGJeCEAnqHE0VqDmDI code = 3377) Knt2tia8SrvOXhcOEuHVlm kZRrhnQvyg73mZQ5oN85IW 2yXNQiTuZ3YSYpotT0Xri5 HBYgOHGbgBEdM686g3xff8 hgkfXvkQB7pHorHKLqjauz TaK4AMxaWWDefuxlORm6ZC ngAOArpGP1POXtyEHtK8Ca PAEtYX3jjcg7JBN2RMznAG HuHiV6IEXvcKRzXXKwvGhw HVbxr293HWT4TaBrMMXyas VjbViybV0yAlFcVAXCQoOz HZ6ufIBvZMNvtC2yDCWbE0 k8Z6IpJ4FhLEsqK0aykY2m NVQkRIDEx9m6oOoxZ25gt6 4fl6wxiE3nOIaraB6vAKRd ROVHkI8qi8tbJMqgk9YfoT MsIHJhbmRvbVxwYXJ9 GROSS DESCRIPTION (test d5aflLHkELQbcBEgGmDoYI code = 3366) KaUFVmn6sfMGHdaKOwBbIl MzNcZnRuYmpcdWMxXGRlZm Ozu3jru682lRCxp1ggCXQO mskepTl7g7osKYSdPgE4mE SfZBbnQ0ylebSynLWzYQFb GZh0hN32OLGswW6rqJKhWQ kjdfYbEsP0WJtfDESjPhM0 DXDhsOUiDATeB3bzSEDeOG kyBXUkOWrbsBAxIYQ6gRmk c7N3oKYdrEEjxGazEzJdKv PvWQAWb7TuVNu7lJecJ2Im MQUtXlJ6vBEbHVItRVzxFQ ZfMKVffkS1aT56ACjlglC3 iPHdm9Flo92jz917tD2deM FdNLW7RHUsLWAnxTHhJDNo OPF9OYYowNVnU3p7LkHqtT FsH4A9ZfIraIRdD6K9DqSn nUClD9V3WgEmwTAkBLKzlG MlVg9kcLOusWMptt9bju50 LXT5k8LfmPquFDS6AMP4Xv DzRo6vkUWkRUCeSNHhiGAr NPKfIA8bkLSsRJImnB6yrq xjXHBnYnJkcmhlYWRccGdi koLaZi6ddWefAGO3OOybE1 recW1eBmL0UMiuV9vdoU6k ZGw3NUpieVF6OZSzeP8gHI 7cpkokw5mbElGvTQ2etjwl i2xmZtHxRW9gksl8m7rcOi XiZU8jrhelg3zwKiDyTIin LOVtajxbRLWys3CuswbxGN Cus3XdQ8FvdKsiE75eqYwo N34eJTZrfNmtoJ2ucFblnH 5cZjBcZnMyNFxwYXJkXHBs YWluXGYxXGZzMjBcbGFuZz EwMzNcaGljaFxmMVxkYmNo FNFzUFcnX0ohFbAdUrLrPL BBLiBSZWNlaXZlZCBpbiBm f6LiSOkaltHwAMFdpGKqXF dpdGggdGhlIHBhdGllbnRc U5I6mhDdRF6dOILkKBAwW1 QqAOEwD65iIRHvsW3kTBLb AJ8nOCCbr7OamfUayynxP4 5yz64ctC8kgNKjMTThEPSw w36nyTF5oqCuOuYoNJOwRM ZuBB4bQUVgrsSnh9C6YPIo a9H1CBOwXGDniJWesvwjNW 29JObjYE75FClfAJ5qOFXa MfSDiWEta0KzB2hwLU4quZ Mfm8OjfIv1xLJzJMsbANKg wV9yoF1hJRKmJWrdnyCocK luZSBCLiBSZWNlaXZlZCBp pyMmb3LfPWpzxkQtAYZojJ VkIHdpdGggdGhlIHBhdGll uvEfQ4J4mxNaYF0aVWGlNP XbG3SvNAUkK96eKDFmpA3k ETKmYH3dILQqoSdet6lgPM OyqS3mAIMeoTpkUpJcgfDi R70fx6dvePAez3BvYoTeeE MnFSOuf4MxbUVsJNGzwrof n45ubPU4fFSfgGCkosPqK3 bzIyWgmxOxhIjqUWTlm46m AO84GVmvOB4uPDmaTQ1tKT PoZCJvYSNqVUY4AQUgNqZ6 IDAuMiBjbSBhbmQgbWVhc3 ZxhB4oFDFkMvJ6HHTgRfD9 HISjMoLliQEhkfAdT0htBP pctUEoZUQfHSOyjARrhG7w ptBnfbIuxQUhjBL8ESFifO 6eeP33uaUsouEHIW7reXwl FTkqtC6pWSKuRXXeF5Iqwo UnXLiaVNJkfi2slNjpZGlq McXjCEXne2d0dUA4gEQtpC G5cBJfsItzGaHsVU4osXOr QZ0kVVvhZVkrjsAed8DdUY 22dAXvieLjofQkBniau0Ua kMOfFroqNAJhJEDcj42fsK E0deNbBqL2MXWeDYNyqoMd JhQ0TD8sxYwpnlKol7R6MS Rzr9M8QZTwXT5faK0sZMnm IHNpemUgZnJvbSAwLjMgeC YbKyUsxGKdJyXdV00hsO3v WA37WZecHE7iCBqaDM3lBW NtIGFuZCBtZWFzdXJpbmcg XS1yGJduQU56HMwqEP5aMS VmEBcuSTVsE7TmW5J1EA4c VGhlIHNwZWNpbWVuIGlzIH G7Pl5qbZAiDOKjopM6x0Os UDkjEHIxNbptqB5lXYhadx DjF1mYSSIyrj6= MICROSCOPIC DESCRIPTION o3oigIEfBRAtnEQ2NnClND (test code = 3371) Wuz9niq2WaiCXazGWtMLqx zSVhfdAsnl54jLB7hG25US 5hKFCfIbR6JUJsasK5Ymj5 UHGcRSGceSXlA325o7nuz8 bgyqLniPF5aIgfCCBwxpiq QvI1UGpjQBDmnslmBDk0RH nfMIDloCO0QJUdkPRbE5Fs GKXbCI2ffwj2JFR7CYjtPL CfCfC9SIProHAhOTXjdIgz NWazg553URF7PeHyDFYlzl CloQxhrH2gNuBmDWYRLYVu GV1wNOjqO4teH3HnKABsQP mkcQrmr5cySH9pUY2wvUxa drLsX5qtqQGydQTfisCnGl xaJA8tOGWkzixpHHXgWp7e Qo2zq4kgsbzcrVOhyeOloV 3oeMKvqBG5wU6sVMEmjhEa s8JtkiDdCF2wwQGwoOCsfN PfLUS9q0UoPEUtJSQkakPo ILsoK83bkoC3JBhfKYUiWU 4zYD0dOOwrkCztn0ZoC8Mt btHwuEQqq89cU2TutVBscr KedbRah4UcphKxkmBiz4Z2 aT9kIIL7LItzcw4lBCrmKA J9 [facility] [id number] 18:24:44 Test Item Value Reference Range Interpretation Comments Case Report (test code Surgical Pathology = 104) Report Case: [id number] Authorizing Provider: Charo Wise MD Collected: 01/09/2022 11:31 AM Ordering Location: [facility] Endoscopy Received: 01/09/2022 03:51 PM Services Pathologist: Evelin Wharton MD Specimens: A) - Polyp, Colon - Right/Ascending, ascending colon polyp B) - Polyp, Colon - Sigmoid, sigmoid polyp C) - Biopsy, Gastric, random gastric bx DIAGNOSIS (test code = [id number] 3220) FuZzEwMzNcZnRuYmpcdWMx IHtccnRmMVxlcGljOTYwMV idegQbVCNjxWJxD6Faqdnx JTqfMA7eGN2jxXzzfXClkG ZfCIVqUaGqp2fjn342fUHf j6tqSGWFixejjUj0jGqtM8 5sd5O7DadmN90uzQHvXER5 RKOoNIVycYLpWIQiVCM3DX KrgRYvF2eeXVBgOV6obpyt NRwbRMtxUFHcdPD4NDBbnY McB1BdWNTwOHklNBEyzct6 SqJoPa6swYHuoKzcUVhkBO LeWBKsEEidOMKhYtUjDI7c P20GT82uKUDMY5tWT0JPD3 VABVcMVhvbVH5KZUWTX7BY FNc1QQXvaab3IPDzSWKISL LYHXWLDZVAQK5RDQIqyFKc OKGwddQIGtXLB4rHCfbxD4 zTSG3ZFKitRQ0QCBSVX8TY VVe4HCGpowz0KYFeMCVWWP FSLULVKEEPUA0BBKXxHPUd eeguNFZsMe4bK0SSXMZNKA vfQ8cKSSIDF7OaT1KKH0cC HAGRJMVLMZ3ZH0aalADrWB RhYiAtIFJFQUNUSVZFIEdB M0CXD0HLCRtOLWNzypn8VX ObXMJBWXiKRYfKRO3FL71T CJODKDUQWO6HKFSLPSfUSN 9HSUMgQUxURVJBVElPTlxw GRLsfBAbPB3fAxJXLAVVRd NxGe3QQUgYHVsKY2QUW3XO GiYCQLNZQ60MY7LZZCBEDc FCUkGYG4ODIX0HMRTTHGkJ M8wsXFP2p9duuZUfBEUajB UxODAwMFxhbnNpXGRlZmxh jexrYROfWOK7vyViPEPbUM ixZSBuSFztZz6zqCPhiPgm PgBhRSQyg5tsvwWInhchjV n1l0biPNDaNpV1vBWrNZpu S1awcjXgtTEtLOMbFLn4qN 83HNBrtM5xwNKbSOxzucRm MqX0EHdtWLClSsG3CDHynB AnMOTyW7tzWQQzICjgXWWb ZQlubPHpPHK0nDkfr3D8bT VzaGVldHtcZjBcZnMyMiBO o9AsFSm7kCkjF2MxWHXuVk E5nZPfGTDuNZzxZSHkUHOz ujG0qI75AIwxmlX6cASpz9 Xed77so124uA3eyHFgUQG1 FABtSSClbUXyFYXgPMV4LY HybQPzC8poROLrZO6oqokj CMjiNZubOIFcsWQ5RKBbsY IaK0TeGTPyAKcqQNWbeoe4 MlYbGa2zpXTmpJliTOnzg8 wzl7gavNQzWue0QCDqWbEg DyohPZytx5Lxc2kpAYLbyw 2sESE0mRNisQxsm5Q6rJMx YOYgiUJaEGTfSG0oeLXpFJ WrtJ1tdjbfBGPkMuUbronu KMWsoKhgoqMiZt1rfFibDI N2EBztW1dxkU1eVtC4KLey L8bpmQ8nRCq6NZwnYMGrbM Y0azB2FMKlqFFyX4ZaqI0l UHJaDV3plrm7b9xyEKG8IB dmTONyTcG0euK7GNXkpYAf PJUjbGczSHoze443AIE8Su QwALYkz6EjA0WvnHjbA44g hFrnP54tDUEvpGzeyI1kpY bvzO7qNjLgNtRvIGbfeTmg FW7aQVNiT2zjxSRrQQXfQO IuE1szKgFtsI4jcVzqJVut btFaYCAaBur4RSViaFMrQK PvDal0DKYuZGFlH69ckokb OJN3gO5tf5gga3RwMPjlZC F8RFHvm80zGMvcirB3KVxq La83GIdwOBK8CLoaQIR2jA == CPT Code(s) (test code e9hbzIFeVQXaaYG8YrNxBT = 3357) Wji6fee7FxsVKmjUNvTUhx tLGeloMzax88pZD1mR21SG 9gKORwQeI8GIGcfgM9Unm7 WJQmPAJfqEEvI309a8gos3 zqwtAfhIC2wKatKSZrirry XrO8TPloGEVbjhpxVMk6SA jhRYWlvAU5NBRcwKNpZ5Gx FCFwBF3hznm1TXW5DAmoCI YwQyT7WCVlhSLiAGInrFor YDxrf060BFX6ZtKqGFJqte SqeNybwE3yYcRuGVS4RZUa NVgzXHBhcn0= CLINICAL HISTORY (test j6wkqHAvKJIrtLP4HeViCQ code = 3356) Rvo4udz3AodMIfeXOtVPfl fBPalgTers18pSS6nF88MW 8sXTUhZfW2HBZqdmQ8Ltc8 LSTlFZPkgZCoK481m7xyc4 bzupKkvYZ6yNzaEHSsotab YoL8SGsbIPJvlwxzAEw9RB vbXJAjfYH6OSQtwHBxB9Fj KUQkFR4lfdx1KEJ9ONggFT HqQvT4WGSgwYPxMGEplPnf QTooj035LZJ6TdLoEOJanx AhzJsbnL0iBlHrPILHZKQ7 qh7vc05hdYRbLBRvHFKqCn x0qSLquZTqIUVoGCFjt7n7 rIPwDzCam5cxstndPYJ3 SPECIMEN SOURCE (test g2qvoBDzSCYojID8BzUbJD code = 5077) Avd2hyb3SpgJOuzADmMFte hTDxpyXztw17cEJ8xT83NY 9wWIMgXtJ4QINfxtP3Vmy2 YYWnORSycUZbU420e1hxf6 ipqvPsrFQ9uHlaGGXlxqmn OsK0ADolNIWoxmfeAVv5JX zvRXWorMN6TONnqLCnF8Qd MRWmXC7uwzy2AAX4VNutOR OuCvZ3PJXxhZOxTCAsiFjq EWoje291RSG6WxEjPGXwaz QwtRbegC2ePfQmUVQIAoTd NZ1paASsGIUvpN6iWCYmZ5 i9N2ExU9HgIOkpM4ngvN5h EDGpHPMGa0a3pRkgL39td0 7vm8gikY5gUFovbI6fJRZl MRCAhD3jx7zeBDntu0ZdtH MsIHJhbmRvbVxwYXJ9 GROSS DESCRIPTION (test y0larTUqIXGljWAaOfJjWA code = 3366) UaLNAcu3hnELVudBNyExBs MzNcZnRuYmpcdWMxXGRlZm Jnh0uuv237aZDjn7jvGYKR kjbxtTq9b6dtEQOhIwT5eW XkLTndO6pbqbZxeJNcKKEe UZa5yT80GZQkwF6aoAIlNJ dtzpAuTpB7MGjfQRUjKpT3 SJIrkWAbAVIoA5xmMTCfWI bvMREtRBifuQMxPHL1eJoe m4W9kBKfwTStwYvwYnDbYh SdRFMZk8CkJVj6vVqhF7Dc NKHaHfV6bUKcEJBrCDswFM AmEUZmhyP4zZ54OUnqlwZ3 wZFbp4Ohw84so548kZ7teD IzIXF8KYFpVGZkcKKrRRKt GNV0FOPnqLRoL2l5QwMfgB HtC8Y2DvNmhUWqP3R4CfYy pDAhD5W3VaJonRNfWJIwbC PoRt0hrAIikVNmhw5shx91 SOO3p4IpjMrlGHL6KEQ1Oz EuUs2seDTpFHXqLDGyuSTk UZYvKJ9ssOSeRXHniX6sjr xjXHBnYnJkcmhlYWRccGdi skIhCu6qhIsxFNJ6RSpyW5 eicZ1kUiD2FGmvK2weuW9m ACu1ERjdjSO2JPDttI8hNL 5cnibvb4gtAiSkEL5jakws v4lqQeNkBL1pyeq6u5keSd KmFS6xwyifg9olMmQwLDog HHKcgugtEQOum1GdisymQJ Khv2GjR8VpmMncZ71qkEgf I77eSBZkpGfveI1tiLjdcP 5cZjBcZnMyNFxwYXJkXHBs YWluXGYxXGZzMjBcbGFuZz EwMzNcaGljaFxmMVxkYmNo IGXeQWmvZ7spXxJeRvPbHT BBLiBSZWNlaXZlZCBpbiBm z9MjPGmgvzOtZHUydELrKK dpdGggdGhlIHBhdGllbnRc N8H9jvMxEL2zPYRvJVHaH8 SvIIRhX69wNMKuaF1kSEGw EX1sSFEpo8JnudAbxjycA2 4ad47gsE5cnYVeKZVyRNDb s08rxXP5amOvCvZqUQKvOH HxTV6nKQIwxpCze5I7HQKn r0A9ZMBxDGIvyDBtedkhLX 80CVknRX59MJrnFI9sYFPv YaDCnERwh6PoW0yhPJ7byG Jii3EzdGz2tFNzZEoaSZUh lL3hwX2cNRUrPOrvytJirI luZSBCLiBSZWNlaXZlZCBp jbGbt2XoWGkwduXoKTVcgU VkIHdpdGggdGhlIHBhdGll yyLdF5P3fiRkOA1jLPGzSY NuE0ZsPVCbQ66lHBJzkX0u POItTK3yCAMtiNuos2sgJA CypK9cDSAqdBayHuCbyzIt M71sc8dufCDjx0ObNjIbiY ZkUQUld3BxnKClTMMjvnzz h72kdQM8hFYmpBJvawOtR1 kzLaPpotEaoKrsGQMpu13v PZ07AOoqCO4mHKizSC3uAY SxFSIsBBYdIIE5UVUaBjT5 IDAuMiBjbSBhbmQgbWVhc3 QndB4xPTUnVcE0HCUcQkP8 TXCzMfWujMZqgrMyZ7mnVZ otbMMpYNSzIXHthWOslJ6r ueVwmrOroNVeeZF8TWLjaW 1uxQ03qoQgtrSTTH0hrZwd QIfpuF1eRJDsNSBfR0Kncc SbPDpxGPVnrz7niOmbJFwj TnQtJEYsn1i3wWM5yUYqrS N1sJNbcPhnVoZhZU1azUJc TI5uLCjbQKgmipDlq7JkLK 53uGMvlnEihwHyQlbix5Pj oIQiGnjzLKBcDTBwj96vhM E1igLlUbO8DOEfRARpabLp HuW1DG6tcDmthuXvr3D9LU Lag4I4QAPjZP0qdN3jBFin IHNpemUgZnJvbSAwLjMgeC AiNhUepKOjJnSlM52qlA0n IW25KTodOH9tSThdJV9mCA NtIGFuZCBtZWFzdXJpbmcg ON9kRVscDJ78RVbnRR2zRE PjAMzsXLMlP7WjF3M3OH1c VGhlIHNwZWNpbWVuIGlzIH N4Ly3mtNWiGXXzwyX8y9Hc AGdoIXOxJimanV8wGZlerw TkV7eBNCKzfx0= MICROSCOPIC DESCRIPTION e6dtkDOgENIxuKW5RxWsWK (test code = 3371) Jqe5fcc2NgfLYogTTpBRpd kAIhmlRsqg84bJG6pU69IG 7hQMVnYhF3PRAbccS4Ple3 IAFsUISmzBOqY348i4adz5 jnfyFziSJ2tMikKMGcgcil UvV2EFqnGZZcmbfkNWi4MF ioVDRgoIE6QRZqmYOiS6Ea HGXxSI5drzf1SXC5KGcrCK SoNbG1DIZanNOwGKFgyXmz EWlqd563IPD6GgEaCXUcba UgvYsmxN2uJjJfLTZGYPXl NM9pTQooY3ylB8IiUBGbOK tdwIrym3tzRJ5zTG0ouPcj wiGaF8hbfXZvlPDsiaJwLn gyZL8lKZZtreznZVVpUq8k So1zr3vmbgmdiFMyjhFjyY 0mvWVcsUF5eA3hEPEpanSi b3YkatHbRC7qyBKppNSibS IrHZN5b4ZpKAKmLXZjslWm FWetV62glpN3SBxrDGBbDU 3qZD8fFIceaHpcs9JwE8Pn phZieCPyk83nW8ChdZQots UqgdZns5MhrsYupeWdm6D0 kC3uVUQ2WLalvu8pNOyvBK [id number] 18:24:44 Test Item Value Reference Range Interpretation Comments Case Report (test code Surgical Pathology = 104) Report Case: [id number] Authorizing Provider: Charo Wise MD Collected: 01/09/2022 11:31 AM Ordering Location: [facility] Endoscopy Received: 01/09/2022 03:51 PM Services Pathologist: Evelin Wharton MD Specimens: A) - Polyp, Colon - Right/Ascending, ascending colon polyp B) - Polyp, Colon - Sigmoid, sigmoid polyp C) - Biopsy, Gastric, random gastric bx DIAGNOSIS (test code = [id number] 3220) FuZzEwMzNcZnRuYmpcdWMx IHtccnRmMVxlcGljOTYwMV qlwvAgZIHlvOHyH0Dfbpkg OYhrWQ1uMY4duFarqMVdrV CoXHOdQgOqp9lwp261oNNp u9vzXGNQxjhriBb8vCcoZ0 5yp7N0JvtrN85tbTVwOYQ6 UINyWSWuzMIyGDHaLFB7FT PbhNEkN4xqDRNbNQ4ilrwr DGqvUBxaDUEorSO1LNAxqN DdS2XmYVVfUCfwLZPboil8 NiUzCn8bxUMwgZkaVFuvXM WuYMVkCDqmARIvKcZkTO2q N98CB77oZHGHV4uKG2MAV6 JTRVmHNmzyEX5SVTZOZ3DK PCd8WWPqquf5KKZuHXMWQT LWBKVPSOSJRU7ZGFCpyNGb FMGxgwSCDuFKG4fEYwzhM4 iHFH6RPSlvVE7GILAGE3LA KOw9IVPioef5IIOaWYCSOP JHDUPYLIMZME2QCNHvQAWj cqlmXJIdWr4uR7AQHNIKYW pyV9yVLNGHF0HkD6OYZ2dH VOHERGURWL8WK3cmuUQqLB RhYiAtIFJFQUNUSVZFIEdB W6YVK8DSXQbTUQXsrrl9UM UgRLULLMbWFIbXYB9QV31A RCCIVKSKLQ2DLADJMNfLLR 9HSUMgQUxURVJBVElPTlxw DYPmgYAtTX9dFrYQDXHTMb YdSo5QUTxMNShRX9USX9WF XcBXVIXWN28EV2UOIEDNAg VXBdBXM4PUPG1BLANRICzF K7xpAPP9p1zrqJJnRJRzxT UxODAwMFxhbnNpXGRlZmxh shtlLJVkJUH0swUfCCPuBB voMYDuGOwaNd8dyBQxyOjp OaWlCMNyx1rtjkOEbffvqQ v3l5clRGHxWnI7yFHrLDpf E3ikuqOgbGKbNIAzMPq7fV 46SLNqqJ7ukMWoTAkzuvGg HoD9GTqkJYKnKoZ7SRIqxK ZqFMFhC5emMBZkBRqhHXBy GFgbcCYhGAD5rBoav8Q6mB VzaGVldHtcZjBcZnMyMiBO h3TzNGe6oJbqR7KqOMSyIs F1uUFdXWRyLDptBUKhLWHr sqF1lO72MYsmwiF8mVAwc4 Hvc01aj071kX7muYZbRNG7 LPOrFOBerZLqHNTyKMA6DT QjyNHlV7trOXMrMA9fhflm MIrqXHyjHLUycSV3RZRqnM ExO2MlHWWqODiwZFQjnni9 RdMzAv6lkFFnaCpjQKjjr1 wuq7pexNUmVar1GCQjItDp DzdbZHxfr4Siz4ghRWWtkq 5vCAY0zLMvlKwvd7F9fSZn PTHyqUIqGKTkXN0hfUXeUY IwbY5veibcBLYbLaZpkzsc PGAwuYxdkuYjSe2iuVqvTU P6BCoxZ7mzdJ6hAfZ4IZsr K6fniD4gSPd9ALgzHBJkpD S7weI5EXJyxUKgK5EvsW7k LMTpJC7fskf8e1qxIEU5AB xtOBPzOsW3vlB2KNLdxBXw KNLhgNmcUPexq517BJP3Hf UgHGOml8HwN7BydFmwJ34b bRcpP94gVWZxnZrkgD2msV bngP0aWcMqYqNgSEiejHyt FP3xCXBlX6fnqXOwZMTnOT HoQ3clFdJhwJ5pmNkpXZda cpMxIEUiMmr6MVGddLAxMB GqNcm6DHRsQJQfS87jplkb HGZ6sR4is5czw5JdIWwgZG S0AQGwe73tUJmjpqF0IWdv Cm06XMdoPKU3PHksKES3kY == CPT Code(s) (test code f2jkcLKsJALgrHQ9KzOkAU = 3357) Iqt4qqo1CjnLWqdUIuPPgp nTVwpsYsun09vSU9fB86AU 7bEZGtYfA6YMWzamC5Sie4 MYOhVZUgsUAwC074g1kmd1 uzzwBlsIE4oQtxIEIlazox JlM7HZehJARkbjwtOHn3ME iqRWOjzRE3XQQqsAOxK4At PZKnNT1jwde6YHM9MMvgIW KrMoI5LBBwoLRjCBHblSqe BEpau690ELS8YhYzBMZeda PyxJpfqP1oGmPjDRP7ZSQz NVgzXHBhcn0= CLINICAL HISTORY (test p8gmoTTwBQPpkUB7NtLnSR code = 3356) Ath4nzp3XeaNZcpCQuDQwj cFBpxcFpmo58nFC9qK86XV 2yRCOpBhO9BTDadjX1Crj1 IMBlYWClbKAuE750u2vtn0 ygngNnzPR8gEzkDCLvwpzp IuJ7DOujYZQcnuswXVq9WX yaGIMfbZO7OBHpcQWvV0Fa WABaWQ8pqnw4GTC7ILxhLG EuQlD2QJWhjEDoTSPrbHbw XZrgr002HDC9FhQcLYZpfl VuwQbibR2mXrIvFSFRNZL6 xz4ho09cyFOqULFeQEBpCj k1pCNlxNYgMSJkUZZqy0y7 nTXwMyAbc8rpjsowURI9 SPECIMEN SOURCE (test k8qbrHEePWUirNJ8AqVkRM code = 3377) Swp0cip1SxsHEmxDEqMLlx wSBjpaEemi00oYW6vG44HN 6kQSMdJqO5WTDsqgQ1Pmf9 UUGsALKlcOIsM386d5nmk2 dypiVvxPY6fUroUPEtwzww FtI9WVslZRQdofnlJFq1LQ mlKHHxyVE5DLEcoEFnF0Wm OSHhHW2qhkd1ICS8OFeuCI TwAcW7YKDscBFaISLmoOsh EGlxj626DCZ0GbCmHBItwj MpnQkszK0uOyLyYYSVWaHd ZY4csTNcXQQgxB5zERWsO7 d7B7ZiV8ZrXWmtE5bkyE8j OTJpTQGLz7d0eIpzU07dj5 3dw6fzdE3pEUqpnO9aTLSj YLVZeW8nc0moZYajx1XdpI MsIHJhbmRvbVxwYXJ9 GROSS DESCRIPTION (test s6xghHCrHURqsQIkOoHuUL code = 3366) KpJCIpz1xvEBZrrHQgDySi MzNcZnRuYmpcdWMxXGRlZm Kjc4pfc994yMTlf4tmAXGK yvzbqQs4r9yeKZLvOhQ3cH UwSHpzR2nenhDhcNLdQXDo PKz0tR47FECwyT7ejPEmPZ jifrBjMjW7GVjwXNXmWdL1 AJIcdJGaWPFwZ7amBNLmRC fcZRYmSGteqHLdROE4wSnq b9W6gEDegRIfrDyrXsLnFm BzMBFXe8RpAPw3yHyrS9Zq WLOfOxS2dISeIIMtCJrjRG AjKAZoydB4iW08UPjurwN4 sCZtn0Jxr50az605lX0yaC VvGYQ8ZRCuBQJrtTWbIIRo NGH7DEImqRUsM3j7MyZayU UtO8Z8PnNvqZIdG8C3LiXm fGOwZ1Y0MiJitTVaVQEvjM DxTx0mbPKelZJzcl2qrh63 NWJ5t5IvvCbjCHS5LIM8Op SyYp3quXUuVOPeICKlnVKy IZWvQO6ziFEkPIIitV4fmm xjXHBnYnJkcmhlYWRccGdi kiXaZx7fdSjtBZR2VUiyM3 bxoQ3uNrQ5YZtmK6xmzI2q SZx6OIyxeHG9ZSCpoM0aNX 8tvkjtg6dhPyWvPT0xgcju b9usOmRwJF0lwzh9l5juCe ByQC0yxhygr9atOiIzHGhe XPRqzpmqEDMzs5AxxhgoJU Bkw2AgP8NgtSmuI33tiHnq Q72rHGWkgFrkfV0toKpyeM 5cZjBcZnMyNFxwYXJkXHBs YWluXGYxXGZzMjBcbGFuZz EwMzNcaGljaFxmMVxkYmNo LUViRScfO7yyJdYlTvTkFG BBLiBSZWNlaXZlZCBpbiBm v4CeCVrydgPhFPZofUDsMS dpdGggdGhlIHBhdGllbnRc S0A1uoCoJA8uEPUeKDXkW7 GcHYNsQ62rDDFmtB0sSEFt WD6oZPFms5EyylPmjqirW0 7mb42avE3mlKIrRJWrLUEt i26ooIJ1mgLcXzFyDWZiWX FySN1nVKFgviEvf2C5THIk r3U7RHVzWBYxeHGvwdbeLG 08UWqdZR25MDdgIK3vKBGi VvLOdBJya8UqW8qhWN9kuP Rtt4SawKu4oYGnISazCYFa pE5icV7oPGDoBJombaVriF luZSBCLiBSZWNlaXZlZCBp muFro5XjAAtcarYsDVYbhK VkIHdpdGggdGhlIHBhdGll bgEjL1B5ehLuDB8eDBImVW KbG1ClXQMmU33nGNRakK5u OTYwHN0zDUYeeUltp1vtTY ZmvO7mEYRceQxtFcWxckGl Z27ig4pxjMFcj9KkYvUvfA YfOPXbk8ShgDRfDOFbzqvn g70ygEV5eXMkiECptnBzU9 zjEqYyygIjpXtyPTKhm53e AA15ITrzEP6bZRopTH5wFC DxJEKlAJHyZFF0UTZjSvL8 IDAuMiBjbSBhbmQgbWVhc3 SwbL9yFTFgLfO4LTLpOhH3 NBDiFtNfdGLavdEwP5zzCT ymxHTrLDPpXRGzjWPgbS8o vdJlapKbsGOekTV4FZPjwS 6wpI23qiAzuuRMJC2voWsx MSnpqD4zZCZoLXTwF2Inpf DxXJwwANWgbz2qxIbwEVig SiUsPEKus3b9rLW8lBTsoJ K6zDExzSulVwBhBN9akTRe FH8rNBcyKOzschVro0PeSQ 39lAEetkYxpsYvDdadm1Zv eIEhKkvyWWDuLDHvs51noZ C8rzMcGxR9MKDwHVRppyOv RsU1AB2yrXacxjAga3A1QE Qey2M6YIDdPU8nqX7yZZyl IHNpemUgZnJvbSAwLjMgeC ChBkMxdWJhPsWuH46nfE0r HN42WMqvPH6cUKqtOL2nXS NtIGFuZCBtZWFzdXJpbmcg UI1rBVrpCL97AJnlMO0wDL JcDEdjLAAoH9CiL4U4JM9f VGhlIHNwZWNpbWVuIGlzIH K5Ce6yjHYqRIOumyU7f4Px DSplTFQtDmshjH0jWOdvhs CkV8xVVCHhwb7= MICROSCOPIC DESCRIPTION w8rjmZPbREWgtHN1LdXqBK (test code = 3371) Eao4nul1NnyLKwiGGwSSye cFWqvvZplz55kPM0cM02GK 8lSEYuGmV0VZYgeiA8Ala3 YSFxVNCspDAmY551n0sjv4 jnykJmpNJ3hIokTTEmcouv VlB6ABmeUHEmakwuONg6GQ vdVKTqbCY2JGNjzMOmE6Vt EGHhCX6isxu3ZQY7MSwyXL DoNsO0FIZizEZqDLDjeAnt TVdnw896CQA7WaNcOKXdco CpaKadwX6uLbYvVECKFJXq WE7vSAbaB9qmA1RtHTJxGE oozRzqz9jbRD8yCF2ncVqa yeGpD1vnyMGtcNBspuNcIu evTC2gRZNbptvfDINrBe4p Cs8if5vbuhalgXRqgeHonD 5qnIDpyLB9zT3tWAYcccXw g7UykvCnXX2paKJfhWQhdD KoQFB6f6TnTKOoCHTwigYo JZanG67vzoZ4ZLlrFBToLN 5mNY3lTXruvJjyd6LfB7Tb lyUwkQGpr85fR9XavEIxgg TcigYlm5NvggFroeEcf5H4 uR5wZFE4TYavni5zZCjyCZ [facility]9 [id number] 18:24:44 Test Item Value Reference Range Interpretation Comments Case Report (test code Surgical Pathology = 104) Report Case: [id number] Authorizing Provider: Charo Wise MD Collected: 01/09/2022 11:31 AM Ordering Location: [facility] Endoscopy Received: 01/09/2022 03:51 PM Services Pathologist: Evelin Wharton MD Specimens: A) - Polyp, Colon - Right/Ascending, ascending colon polyp B) - Polyp, Colon - Sigmoid, sigmoid polyp C) - Biopsy, Gastric, random gastric bx DIAGNOSIS (test code = v2ebdJWwGRWxj7yjZQAbfK 3220) FuZzEwMzNcZnRuYmpcdWMx IHtccnRmMVxlcGljOTYwMV jdapLpRHKjvLYsN1Eytivd UXclQD5gVR5koNqirATzzI YzOSMhGxLxw2gac701uKCc a4lfPVZMcrqzeLu5wJolT7 0cu1Q8WhvvP34vaAEfHQN3 URCmGCXfrZJeWFNhPBX1WU XtdSKzD6fyTQMaLZ0ugpkj EJhjGTigIJEesRB7DHGppS AaZ9AaFSNqDNvxJYXwbnw1 QxKaFx5elNYgxWssKKcrGN QgTPLkJQilJBHiMcPsDF9l H74IB76dNEMNJ3uJI0NIP6 ZUGIsRLbeqUN2BZLDEL7FJ MSh7LXHukgf6TNTtTMZUES MMMENGGXTHFB0VNEHjcWZf KXLmfnGIFjQJH3zPMrztB3 eZOF8YUZegLK1BEAXOA1JD YEi1AUAzsed0SGMvSHQWRL VULOHFDGJVQJ3MSVItUFBx nppyYHHlGu6dY6WIHQZFCP kzC9nAPGUAW3KuP3FGQ7vF TGMPDCDKIC7AT6yssZVgXH RhYiAtIFJFQUNUSVZFIEdB J5XKO4ZAXAdEUCTmnhq3LT OfAFCJYLnYBQmIZD2WJ12H ZLSHGBHIRI4PKQJTMEiVTZ 9HSUMgQUxURVJBVElPTlxw PIGnoYPlNJ2cAlDBWAPNOh XgTl2ITWvJLXdQM5KAY6LJ RgPOMYWXW54UB6METDLWYy RBOrEMC0DXYQ5PWPHMOIhW V2knDNP9t5akfWNiPVHhkH UxODAwMFxhbnNpXGRlZmxh djeiVNQiOXO3jxMdTTYfID zyULZgMRtkAr2zvGWowOjb VbFyEQAzn3lagkRIqwcsnL x6p9feLJHsOcZ1dUHeOSjr W6fqpqKgtKEjFQHjQXz9zI 43DHPioP0atAGgWJzmquKn TbS9VJykQZAuVcV2FGOqyL LiCKCrH1rqJEZdUXhmRKVw CIdbnABjYMT5pNrfl3M1wP VzaGVldHtcZjBcZnMyMiBO q0TgNSb4pJgkQ6CkDALqPt C3zZSdCZSeJMlaEKXgFVDu siS0rY16JJueqyG9wNEtj6 Zre92hc354oT5oiKZfVUX3 KEByYVLqbIVnBXXjDEN4YQ YctJQnZ6ymYIZqEC0surml QMxjTUuiCBDfhNY8YHWyeK WrB9LxRKCsEIsyONBgfwo8 DlVaIx1rdDAwjYrmSQtez6 dkj5gjxIIdOvy8WHIzTxXh DupwUScun5Lnz5ovJTAxph 4gFSL6mDVskFhtk2B9fEFw EBQexCXcEJCyXZ5rzHZoOD AhqH6fpvxrPBXaUgGjllyc EYKbpPtyscMaGz7wdFpcQV F1XAxqQ0ajyR8wVtT3AFdi V9cgiM8aISf0BFspCHVtbT G9maK8LUBrxXLqA1SoqQ3e MSLtGD3wkzs0v1jaZYE8JB rqRBZfKtA9qtY6ZQYhfQLr SMXabOawTYkau032BYV0Ad OsINKmd9DtC1SpdAuzR02y jUvjW78lHPFuhLykgS7xrD fgyL0aNwGjEiFeOAixdIjq IM9yPZBnE8fnjRNsSIOkUC GsP8duAzRuyK9jkYsqFWyf rtBfZPAjYvs5YHIydVAdPB YlStv8XGSnJIRxN63cfkey ZAZ0eQ5mf2fza7CkGSzzYH V9OPNif14wJZjkvuY4WXgm Wj96UHnhNQE2HLdqXEQ3qY == CPT Code(s) (test code b5ysdUYjTSArzJM0ZhUjKP = 3357) Zng7bic8WhsCQoeIEmCWat hOJvbsAiio82oCF3zZ21DS 3gWOGeOnQ7CXNpxuZ1Mwv1 WOBdIZXhpOIxN840r2ngq6 peezBagND7wYiwMBYjdruu JpI6PNkoGBPjlvvvGOs6IJ jzSFGofPT9CDGndQWiD6Jl CCIoRG1enyd4EZS8JHbwGG NqCxU8SZMuqQYjBAMqpXuz OGmag300AQJ2FeQxRBGoon ByyBurzN0bWxTnKJR4VVAe NVgzXHBhcn0= CLINICAL HISTORY (test n7tsjDLsNYLhmYG7EdJyLZ code = 3356) Wsa9bip8RajFShcDDlTFob dBSurbCtti84sYG9qF14BT 3jKKXgPaX3LCOabaG7Sab4 LTJcZLEhsRPyK716q4opk6 opfjApeDW0bTvkOQAcmbmr JkH2UAhxXJJsnetlTFf8KO fmTITbjPQ5LTOpkOVpE9Oa AKHoLC3ntng5DCP5IFriVY JrIsV7RMRpmPRgGJIzuKtc CNvjy558STT1WpRxPUNozh BhoJywkL5qDoEgZAPLTAX8 mk0lf66brOCxKOQnGBDyNe c4vTHyqONjHXBcDVTdm8f6 rGLnWsCde0pvlkdcYEK9 SPECIMEN SOURCE (test w6lgdVLhSCBtoBZ9ZbRxSG code = 3377) Vjb5fju9VgcWJlbCYwEEog fDSnikCibz85iJG4rQ88WL 7bWVGwOeW7QWQzdnZ7Alk3 OHPkZPKchRBkH502e6zcd3 kjfbQeeFW6lNzpKLWnuhfu XuO9ULryJKLajrytSBk6HT wpPCCquWL4TBTvlLTwB5Vt FRLfBT9bshx0EIL6IKwdTI SnOgX2KPExyETuKUJbjIcz FJrtj853PDI0NzLbPYAkys UakCybkP0kKlOaKVSLXcQj FC9ofSBwQHAhuC7fOECoP4 z5Q5UzM3MkDLpdH2svmC9j CFHvXNOTe6c4mJbjI01jl0 8cr6mksK6sFOubpF9zPWSa UWWXuO1qi4mwAPaat8NiuG MsIHJhbmRvbVxwYXJ9 GROSS DESCRIPTION (test d2zyfHIpDQQtlPLtPeHqEH code = 3366) EoKGIis3orVWWhlKVxTlFb MzNcZnRuYmpcdWMxXGRlZm Tzg7uoq135hEJzg9inZZZS ajgrwQw0s1jiGROzDtE7fZ FiHHjkJ8rhazJpfEKoJQJl UWx3bI26NOTxoU4nyPYyDC wqqcYtKdN6AHdgRDYbYmI7 DTSpaVVxGCXoK3toEQRfOP msEKMvPXdlqAOyMNA6eQaa l3J6sHJzfMLrePbfGuMsGp OoCCRQc9DmSOt3cJahO4Wy CENvJjF9iKNlSETjERqePY BgWOUfrcS6mW39GLkeqfR3 mQCaq3Xvg50dw109kW8fiN ZwGIW0FXAiAZMczYZkQPGx JXG6MAPtqNIvX9m2YzPvdM MfM8R4ZnQjmXEuF9H5FwMm wPZuL4R1RpHvsYRpUBFpwJ PkIv1ufHRfoPXbqk0gwd68 BVC3f3TtkPywRLV7QQC1Na ItAy4vgFHnWKDzMUXzzMXo JUGdGJ6kkKMkDTKwjQ3kjk xjXHBnYnJkcmhlYWRccGdi nhRvLz5kpWjrGAO2ZTlaA9 bhbH2tXtG8CUjfZ2matR6t GHy8BPdcsMC8NZUpwC8xOO 8bxnqdz3ipJfCxGS2joioc q2zhTlQaJL0wtyv1c3ivHo LqJW6gpmnlf7aeCeFhDWzp YLUqnrwlTGQai3XxfhcsKD Nbs8MmY4JsfJzmE57xcRpv C09wSOEqkOuwjP1ugQcaqT 5cZjBcZnMyNFxwYXJkXHBs YWluXGYxXGZzMjBcbGFuZz EwMzNcaGljaFxmMVxkYmNo NZFgEQbbL4suCaDrJjXhUX BBLiBSZWNlaXZlZCBpbiBm z3TrZOnmdpLoAOXhsYOfMU dpdGggdGhlIHBhdGllbnRc E2U9tkNdPP8bVARtENKlE6 WbZFTeJ76wALHwrE6kJFYg RD4bSDPoi2YqadAocenhC7 8ge76wmA5rmQSvXERsRBRg p12gmSJ0cjJgWpVjXVIlEK FaWI0ySCOaapNjs7E4HAMw v1F2UXNaOCJbtDEccyghPB 40RKctLM57JCspZA3uDRZj QrVKuVKbn7RtP9ncOD5cmY Osl0MinZh2fBKfNYhpMTHy dC4ueR7wQHUfFFerbnBptF luZSBCLiBSZWNlaXZlZCBp poVeg7HqURytagDrWIDggE VkIHdpdGggdGhlIHBhdGll dzUkI5W0ntWtTZ3wTINsTQ AiE5MmCEKcA85rVGXevC0d JZIuML7vHYHetFqpo8ezOW FymL8bBZUnvDntYkUyceVu L74yc2saaFSnn7SzItAonZ FbYRHtv8NyuLPiOYDwthei s87ehDS2xOHopVAjuwHfP0 waPnLwwlGufToiQVVhs32f YN70SQlkGQ3sZZkvGO0pUU SwJAAyDJPtXAN9ZNHlPyD6 IDAuMiBjbSBhbmQgbWVhc3 HhoM2bZQXqZgJ9CBEuYkK6 SQTzTtUlyWLggcTkP3uqFH qagJZsYJLvFQLuwBYwbS8x wqFvdrCoiRYpcSV9IVWiaJ 3pdE14tnJruwRAQR4zrGib RNxzaE9dLQCxZXSiZ9Sdnu WtPUncJFMhqw2tvEsjGVyj CvVhGLNfq5c6yQR6vUZfbJ Q8bXJyoCjwJgNlMB6ihFOu XD4oNRrwBXhbtsRvo2EdHL 08hQNlfcSoewHfIndsv0Zz qPDdHcddLUHbZSRuu42kwO I0vzKeMdQ1BKJyWJEyydVj ReU7UV4pgYfaygDra1T4OU Dbp7S4DNNnQT9vxT1jKZuo IHNpemUgZnJvbSAwLjMgeC YxHlGzwBEyNyDeG64khF8u OH13CHoaME8yESfeAC8sCM NtIGFuZCBtZWFzdXJpbmcg LX3vJSfyZX92JSelRW0bDN CiAFnsYQAdS5VxT9Z1ZP4x VGhlIHNwZWNpbWVuIGlzIH A9Kx4rgWGzMBBtloE2v5Ph WMtfXZYoAtmxnN7jMBwrjc PmA4xMZWOhmf7= MICROSCOPIC DESCRIPTION x8ocmCJrWGLwiWI9YvEyDI (test code = 3371) Wmh4sap8HeiAVerEGfAVjg aLAaogFijx72fNR2rT81KM 3aOWHgVtH1HEIxmqL6Mec8 NKDvDKPnbBPdU453c3ojd2 asdgVhkJM0pVgrSDAforpu CdM2YUeaSSUkekblQEi9YJ azEPJwoTO9RUEilEJjV5Dt GCVxXK7oybl5LEQ2DKmiCS OjKoQ6SJKncVEyDBPbtCwc WXssl573FVF4GeUmPYRwwg WkxIcqaY2cIwQjAZQUTNWo GJ6uTUwtN2axA1KbAASpDP mtlJthb6qwPD6yLZ8liIlf smArL1mufNAqbMWsbdGpQk zkDP4eMYShgcrsGBIyOl7a Bg1cd2pyhtocgROzecUqdA 5ilWGtlEX4yF5xIMSkzmIr d9KpwaTnDB7nxBSqsCJkvQ VnNSS7p0HlLINmRRDpldBy SXepG17oxkD0TIypRMBnLP 8qPD9jXRkeuXsed5QaL8Lq irUjvBAxx87gV5GwvAVohf UxlrYer3UtutGicjVot2H5 fP8sITQ8IEljuz3fKOijIC J9 [facility] [id number] 18:24:44Surgical Pathology Report Case: [id number] Authorizing Provider: Charo Wise MD Collected: 01/09/2022 11:31 AM Ordering Location: [facility] Endoscopy Received: 01/09/2022 03:51 PM Services Pathologist: Evelin Wharton MD Specimens: A) - Polyp, Colon - Right/Ascending, ascending colon polyp B) - Polyp, Colon - Sigmoid, sigmoid polyp C) - Biopsy, Gastric, random gastric bx A. COLON, RIGHT/ASCENDING, POLYPECTOMY: - TUBULAR ADENOMAB. COLON, SIGMOID, POLYPECTOMY: - TUBULAR ADENOMA C. STOMACH,SITE NOT SPECIFIED, BIOPSY - REACTIVE GASTROPATHY - OXYNTIC MUCOSA WITH NO PATHOLOGIC ALTERATION - NEGATIVE FOR HELICOBACTER MICROORGANISMS ON ROUTINE STAINS Signing Pathologist Direct Phone Line: [phone] signed by Evelin Wharton MD on 01/12/2022 at 6:24 [id number] ref lux disease, polyp of colonA. Polyp, colon-right/ascendingB. Polyp, colon- sigmoidC. Biopsy, gastric,randomA. Received in formalin labeled with the patient's [...] pink soft tissue ranging in size from 0.5 x 0.2 x 0.2 cm to 0.5 x 0.3 x 0.2 cm and measuring 1.3 x 0.3 x 0.2 cm in aggregate. The specimen issubmitted in toto in B1.C. Received in formalin labeled with the patient's name, medical record number and "gastric BX" and consists of 5 pieces of vazquez-pink soft tissue ranging in size from 0.3 x 0.2 x0.2 cm to 0.4 x 0.3 x 0.2 cm and measuring 1.0 x 0.7 x 0.2 cm in aggregate. The specimen is submitted in toto in C1.KHHA-B. No high- grade dysplasia or malignancy is identified. C. No significant inflammation, intestinal metaplasia, dysplasia or malignancy is seen. No Helicobacter microorganisms are seen on routine stains.POC-Glucose [id number] 13:54:18 Test Item Value Reference Range Interpretation Comments POC-Glucose Meter (test 133 mg/dL 70-110 H : TE STED AT [facility] code = 1538) [address] [place] [address], [facility] 30: Tamper Operator/Techni miguelina ID = [id number] for Shaye Earluja Lab Interpretation (test Abnormal code = 07537-9) [facility]-Glucose [id number] 13:54:18 Test Item Value Reference Range Interpretation Comments POC-Glucose Meter (test 133 mg/dL 70-110 H : TE STED AT [facility] code = 1538) [address] [place] [address], [facility] 30: Tamper Operator/Techni miguelina ID = [id number] for Rajat, Marybel Lab Interpretation (test Abnormal code = 44409-8) [facility]-Glucose [id number] 13:54:18 Test Item Value Reference Range Interpretation Comments POC-Glucose Meter (test 133 mg/dL 70-110 H : TE STED AT [facility] code = 1538) [address] [place] [address], [facility] 30: Tamper Operator/Techni miguelina ID = [id number] for Rajat, Marybel Lab Interpretation (test Abnormal code = 80100-6) [facility] [id number] 13:54:18 Test Item Value Reference Range Interpretation Comments POC-Glucose Meter (test 133 mg/dL 70-110 H : TE STED AT [facility] code = 1538) [address] [place] [address], 770 30: Tamper Operator/Techni miguelina ID = [id number] for Marybel Earl Lab Interpretation (test Abnormal code = 09064-9) [facility] [id number] 13:54:18 Test Item Value Reference Range Interpretation Comments POC-Glucose Meter (test 133 mg/dL 70-110 H : TE STED AT [facility] code = 1538) [address] [place] [address], 770 30: Tamper Operator/Techni miguelina ID = [id number] for Marybel Earl Lab Interpretation (test Abnormal code = 13752-2) [facility] [id number] 13:54:18 Test Item Value Reference Range Interpretation Comments POC-Glucose Meter (test 133 mg/dL 70-110 H : TE STED AT [facility] code = 1538) [address] [place] [address], 770 30: Tamper Operator/Techni miguelina ID = [id number] for Marybel Earl Lab Interpretation (test Abnormal code = 30358-8) [facility] [id number] 13:54:18 Test Item Value Reference Range Interpretation Comments POC-GLUCOSE METER 133 mg/dL 70-110 H : TESTED A T [facility] 6720 (BEAKER) (test code = [facility], 1538) [address]: Tamper Operator/Techni miguelina ID = [id number] for Marybel Pina POCT-GLUCOSE [id number] 10:12:16 Test Item Value Reference Range Interpretation Comments POC-GLUCOSE METER 135 mg/dL 70-110 H : TESTED A T [facility] 6720 (BEAKER) (test code = [facility], 1538) [address]250: Tamper Operator/Techni miguelina ID = [id number] for HOLLY FULLER, MINIMMASHA SARS-CoV2/RT-PCR (Asymptomatic ONLY)2022-01-09 09:03:44 Test Item Value Reference Interpretation Comments Range SARS-COV2/RT-PCR Negative Negative The SARS-Co V-2 (test code = target nucleic 69927-5) acids are not detected in thi s [...] rapid, real-doroteo e RT-PCR test intended for e qualitative detection of nucleic acid fr [...] revoked sooner. Fact Sheet for Healthcare Providers: https://www.[employer]/Documents/Xp ert%20Xpress%20SAR S%20CoV-2/Fact%20S heets/302-3802%20S ARS-COV-2%20HEALTH CARE%20PROVIDERS%2 0FACT%20SHEET.pdf Fact Sheet for Healthcare Patients: https://www.[employer]/Documents/Xp ert%20Xpress%20SAR S%20CoV-2/Fact%20S heets/302-3801%20S ARS-COV-2%20PATIEN T%20FACT%20SHEET.p df Lab Interpretation Normal (test code = 57106-9) [facility]2022-01-09 09:03:44 Test Item Value Reference Interpretation Comments Range SARS-COV2/RT-PCR Negative Negative The SARS-Co V-2 (test code = target nucleic 36039-3) acids are not detected in thi s [...] rapid, real-doroteo e RT-PCR test intended for e qualitative detection of nucleic acid fr [...] revoked sooner. Fact Sheet for Healthcare Providers: https://www.[employer]/Documents/Xp ert%20Xpress%20SAR S%20CoV-2/Fact%20S heets/302-3802%20S ARS-COV-2%20HEALTH CARE%20PROVIDERS%2 0FACT%20SHEET.pdf Fact Sheet for Healthcare Patients: https://www.[employer]/Documents/Xp ert%20Xpress%20SAR S%20CoV-2/Fact%20S heets/302-3801%20S ARS-COV-2%20PATIEN T%20FACT%20SHEET.p df Lab Interpretation Normal (test code = 45568-9) [facility]2022-01-09 09:03:44 Test Item Value Reference Interpretation Comments Range SARS-COV2/RT-PCR Negative Negative The SARS-Co V-2 (test code = target nucleic 54615-6) acids are not detected in thi s [...] revoked sooner. Fact Sheet for Healthcare Providers: https://www.[employer]/Documents/Xp ert%20Xpress%20SAR S%20CoV-2/Fact%20S heets/302-3802%20S ARS-COV-2%20HEALTH CARE%20PROVIDERS%2 0FACT%20SHEET.pdf Fact Sheet for Healthcare Patients: https://www.[employer]/Documents/Xp ert%20Xpress%20SAR S%20CoV-2/Fact%20S heets/302-3801%20S ARS-COV-2%20PATIEN T%20FACT%20SHEET.p df Lab Interpretation Normal (test code = 02846-7) [facility]2022-01-09 09:03:44 Test Item Value Reference Interpretation Comments Range SARS-COV2/RT-PCR Negative Negative The SARS-Co V-2 (test code = target nucleic 83533-9) acids are not detected in thi s [...] om SARS-CoV-2 in a nasopharyngeal swab specimen [facility] from individual s suspected of COVID-19 by [...] revoked sooner. Fact Sheet for Healthcare Providers: https://www.[employer]/Documents/Xp ert%20Xpress%20SAR S%20CoV-2/Fact%20S heets/302-3802%20S ARS-COV-2%20HEALTH CARE%20PROVIDERS%2 0FACT%20SHEET.pdf Fact Sheet for Healthcare Patients: https://www.[employer]/Documents/Xp ert%20Xpress%20SAR S%20CoV-2/Fact%20S heets/302-3801%20S ARS-COV-2%20PATIEN T%20FACT%20SHEET.p df Lab Interpretation Normal (test code = 85030-6) [facility]2022-01-09 09:03:44 Test Item Value Reference Interpretation Comments Range SARS-COV2/RT-PCR Negative Negative The SARS-Co V-2 (test code = target nucleic 10709-8) acids are not detected in thi s [...] is improperly collected, transported or handled. This SARS CoV-2 test [...] revoked sooner. Fact Sheet for Healthcare Providers: https://www.[employer]/Documents/Xp ert%20Xpress%20SAR S%20CoV-2/Fact%20S heets/302-3802%20S ARS-COV-2%20HEALTH CARE%20PROVIDERS%2 0FACT%20SHEET.pdf Fact Sheet for Healthcare Patients: https://www.Exotel/Documents/Xp ert%20Xpress%20SAR S%20CoV-2/Fact%20S heets/302-3801%20S ARS-COV-2%20PATIEN T%20FACT%20SHEET.p df Lab Interpretation Normal (test code = 41518-2) [facility]22-[facility]-09 09:03:44 Test Item Value Reference Interpretation Comments Range SARS-COV2/RT-PCR Negative Negative The SARS-Co V-2 (test code = target nucleic 54246-8) acids are not detected in thi s [...] revoked sooner. Fact Sheet for Healthcare Providers: https://www.Exotel/Documents/Xp ert%20Xpress%20SAR S%20CoV-2/Fact%20S heets/302-3802%20S ARS-COV-2%20HEALTH CARE%20PROVIDERS%2 0FACT%20SHEET.pdf Fact Sheet for Healthcare Patients: https://wwwPhobious/Documents/Xp ert%20Xpress%20SAR S%20CoV-2/Fact%20S heets/302-3801%20S ARS-COV-2%20PATIEN T%20FACT%20SHEET.p df Lab Interpretation Normal (test code = 12694-2) [facility]2022-01-09 09:03:44 Test Item Value Reference Range Interpretation Comments SARS-COV2/RT-PCR Negative Negative The SARS-Co V-2 target (test code = nucleic acids a re not 4733373) detected in thi s specimen. Negative result [...] revoked sooner. Fact Sheet for Healthcare Providers: https://www.NewAer/Documents/Xpert%20Xpress%20SARS%20CoV-2/Fact%20Sheets/3023802%97GJQY-BAX-4%20 HEALTHCARE%20PROVIDERS%20FACT%20SHEET.pdf Fact Sheet for Healthcare Patients: https://www.Field Dailies/Documents/Xpert%20Xp ress%20SARS%20CoV-2/Fact%20Sheets/3023801%07RJYW-OQW-6%20PATIENT%20FACT%20SHEET .[id number] 14:57:00 Test Item Value Reference Range Interpretation Comments SURG (test code = SURG) RUN DATE: 08/26/20 [facility] PAGE 1 RUN TIME: 1147 Specimen Inquiry RUN USER: INTERFACE PATIENT: PEPE ACOSTA LOC: ANDI U #: [id number] AGE/SX: 55/F ROOM: RE08/23/20[facility] DR: Tapan Harper MD : 69 BED: DIS: STATUS: [facility] TLOC: SPEC #: [id number] RECD: 08/23/20 STATUS: KRISTIN RE #: [id number] HIRO: 08/23/[address]: Tapan Harper MD ENTERED: 08/23/20 SP TYPE: SURG OTHR DR: Trent Irving DO ORDERED: SURG PATH LVL 02/01 COPIES TO: Trent Irving DO [address] [place], [place] [id number] Tapan Harper MD [address] [place], [place] [address] HISTOLOGY: TISSUE ID BLK PCS DIANE LEV [...] - R10.84; K59.00 CPT CODES CPT CODE(S): 48104T2 , , , , , , FINAL DIAGNOSIS A. Colon, right, biopsy: COLONIC MUCOSA WITH NO PATHOLOGIC DIAGNOSIS B. Colon, mid, biopsy: COLONIC MUCOSA WITH NO PATHOLOGIC DIAGNOSIS CONTINUED ON NEXT PAGE RUN DATE: 08/26/20 [facility] PAGE 2 RUN TIME: 1457 Specimen Inquiry RUN USER: INTERFACE SPEC #: [facility]:[id number] PATIENT: PEPE ACOSTA #[id number] (Continued) FINAL DIAGNOSIS (Continued) C. Colon, left, [...] all as C. ba/nr Grossing performed at [facility] Pathology, [address] [place] [address], [address], [place] [address]. Camp Housekeeper: Leeroy Yudy, M.D. MICROSCOPIC DESCRIPTION A. Right colon biopsy. [...] 08/26/20 1457 END OF REPORT GLUCOSE BEDSIDE [id number] 08:29:00 Test Item Value Reference Range Interpretation Comments GLUCOSE BEDSIDE TESTING (test code 156 mg/dL 70-110 H = GLUBED) BASIC METABOLIC [id number] 12:40:00 Test Item Value Reference Range Interpretation [...] CA) 9.0 MG/DL 8.5-10.1 N BASIC METABOLIC [id number] 12:37:00 Test Item Value Reference Range Interpretation [...] 9.0 MG/DL 8.5-10.1 N COVID 19 INHOUSE [id number] 12:37:00 Test Item Value Reference Range Interpretation Comments COVID 19 INHOUSE AG NEGATIVE Negative Per manu facturer, (test code = negative result s should [id number]) be treated aspr esumptive and, if inconsi [...] symptoms co nsistent with COVID-19. CBC W/AUTO [id number] 12:23:00 Test Item Value Reference Range Interpretation [...] (test code NO DIFF/SCN CRITERIA = MDIFF) [id number] 15:34:00 RUN DATE: 12/13/19 [facility] PAGE 1 RUN TIME: 1535 Specimen Inquiry RUN USER: INTERFACE ----- -------PATIENT: PEPE ACOSTA LOC: [facility] U #: [id number] AGE/SX: 54/F ROOM: RE12/11/19REG DR: Cas Rodriguez MD : 69 BED: DIS: STATUS: [facility] TLOC: SPEC #: [id number] RECD: 12/11/19 STATUS: KRISTIN REQ #: [id number] HIRO: 12/11/[address] [facility] [address]: Cas Rodriguez MD ENTERED: 12/11/19 SP TYPE: SURG OTHR DR: Trent Irving DO ORDERED: SURG PATH LVL 01/31 COPIES TO: Trent Irving DO [address] [place], [place] [id number] Cas Rodriguez MD [address] [place] [id number] HISTOLOGY: TISSUE ID BLK PCS DIANE LEV PROCEDURE DISPOSITION ____ ___ ___ ___ GASTRIC ANTRUM A 1 3 GASTRIC ANTRUM B 1 3 PROCEDURES: SURG PATH LVL 4 (12/11/19- 1054) TISSUES: A. GASTRIC ANTRUM - GASTRIC BIOPSY B. GASTRIC ANTRUM - DISTAL GASTRIC BIOPSY CLINICAL HISTORY EPIGASTRIC PAIN -R10.13; NAUSEA -R11.0; VOMITING -R11.10 CPT CODES CPT CODE(S): 31344C0 , , , , , , FINAL DIAGNOSIS A. Stomach, biopsy: MILD CHRONIC GASTRITIS NEGATIVE FOR INTESTINAL METAPLASIA, DYSPLASIA, OR MALIGNANCY NEGATIVE FOR HELICOBACTER PYLORI ORGANISMS B.Stomach, distal, biopsy: MILD CHRONIC GASTRITIS NEGATIVE FOR INTESTINAL METAPLASIA, DYSPLASIA, OR MAL IGNANCY CONTINUED ON NEXT PAGE RUN DATE: 12/13/19 [facility] PAGE 2 RUN TIME: 1535 Specimen Inquiry RUN USER: INTERFACE SPEC #: [id number] PATIENT: PEPE ACOSTA #[id number] (Continued)------ ------ FINAL DIAGNOSIS (Continued) NEGATIVE FOR HELICOBACTER PYLORI ORGANISMS GROSS DESCRIPTION A. Gastric biopsy. Received in formalin is a vazquez tissue fragment, 0.5 cm, all as A. B. Distal gastric biopsy. Received in formalin is a vazquez tissue fragment, 0.3 cm, all as B. shivam/nr Grossing performed at [facility] Pathology, [facility], [address], [place], [place] [address]. Camp Housekeeper: Leeroy Jimenes M.D. MICROSCOPIC DESCRIPTION A. Gastric biopsy. Sections demonstrate gastric mucosa with mild chronic inflammation.No dysplasia or malignancy is identified. No evidence of intestinal metaplasia is seen. No features of Helicobacter pylori organisms are identified. B. Distal gastric biopsy. Sections show gastric mucosa with mild chronic inflammation. No dysplasia or malignancy is identified. No evidence of intestinal metaplasia is seen. No features of Helicobacter pylori organisms are identified. Signed SIGNATURE ON FILE Maria TeresamaryjoCarlos M 12/13/19 1534 END OF REPORT GLUCOSE BEDSIDE [id number] 06:17:00 Test Item Value Reference Range Interpretation Comments GLUCOSE BEDSIDE TESTING (test code 170 mg/dL 70-110 H = GLUBED) [facility] [id number] 11:12:00 Test Item Value Reference Range Interpretation Comments UR HCG QUAL (test code = HCGQLU) NEGATIVE NEGATIVE
[2022-12-04] MEDS ORDERED: dexAMETHasone 10 MG/ML VIAL ONE (23:13)
--- NOTE | 2022-12-04 23:21 | ER ---
Nurse's Notes [facility] Name: Maria De Jesus Acosta Age: 57 yrs Sex: Female : 1965 Arrival Date: 12/04/2022 Time: 21:59 Bed 13 Private MD: Diagnosis: Other headache syndrome;severe cancer related pain, neuropathic pain Presentation: 12/04 22:00 Chief complaint: Patient states: headache. Coronavirus screen: Vaccine status: Patient [facility] reports receiving the 2nd dose of the covid vaccine. Ebola Screen: No symptoms or risks identified at this time. Initial Sepsis Screen: Does the patient meet any 2 criteria? No. Patient's initial sepsis screen is negative. Does the patient have a suspected source of infection? No. Patient's initial sepsis screen is negative. Risk Assessment: Do you want to hurt yourself or someone else? Patient reports no desire to harm self or others. Onset of symptoms was December 04, 2022. 22:00 Method Of Arrival: EMS [facility] 22:00 Acuity: EMERALD 3 [facility] 22:00 Onset of symptoms was December 04, 2022. [facility] Triage Assessment: 22:00 Headache History: The patient has had previous headaches and this one is similar to [facility] previous episodes. General: Appears in no apparent distress. uncomfortable, Behavior is calm, cooperative, appropriate for age. Pain: Complains of pain in left holiness and right holiness and left ear and right ear and forehead and top of head Pain currently is 10 out of 10 on a pain scale. Also complains of photophobia. Pain: Pain does not radiate. Quality of pain is described as sharp, throbbing, Pain began 4 hours ago. Is continuous. 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 - Social history:: Smoking status: Patient denies any tobacco usage or history of. Screenin:00 [facility] ED Fall Risk Assessment (Adult) History of falling in the last 3 months, eh3 including since admission No falls in past 3 months (0 pts) Confusion or Disorientation No (0 pts) Intoxicated or Sedated No (0 pts) Impaired Gait No (0 pts) Mobility Assist Device Used No (0 pt) Altered Elimination No (0 pt) Score/Fall Risk Level 0 - 2 = Low Risk. Abuse screen: Denies threats or abuse. Denies injuries from another. Nutritional screening: No deficits noted. Tuberculosis screening: No symptoms or risk factors identified. Assessment: 22:00 General: Appears in no apparent distress. uncomfortable, Behavior is cooperative, eh3 appropriate for age. Pain: Complains of pain in top of head, forehead, right ear, left ear, right holiness and left holiness Pain currently is 10 out of 10 on a pain scale. Quality of pain is described as throbbing, Pain began 4 hours ago. Is continuous. Neuro: Level of Consciousness is awake, alert, obeys commands, Oriented to person, place, time, situation. Cardiovascular: Capillary refill < 3 seconds Patient's skin is warm and dry. Respiratory: Airway is patent Respiratory effort is even, labored, Respiratory pattern is regular, symmetrical, Breath sounds with wheezes bilaterally. GI: No signs and/or symptoms were reported involving the gastrointestinal system. Abdomen is round non-distended. : No signs and/or symptoms were reported regarding the genitourinary system. EENT: Reports pain in right ear and left ear. Derm: No signs and/or symptoms reported regarding the dermatologic system. Skin is pink, warm \T\ dry. Musculoskeletal: Circulation, motion, and sensation intact. Range of motion: intact in all extremities. Vital Signs: 22:00 BP 158 / 85; Pulse 95; Resp 20; Temp 98.4(O); Pulse Ox 91% on R/A; Weight 147.42 kg; eh3 Height 5 ft. 0 in. (152.40 cm); Pain 10/10; 22:30 BP 141 / 80; Pulse 96; Resp 16; Pulse Ox 91% on R/A; eh3 22:00 Body Mass Index 63.47 (147.42 kg, 152.40 cm) 3 ED Course: 21:59 Patient arrived in ED. 22:00 Puneet Garcia MD is Attending Physician. jr11 22:00 Patient has correct armband on for positive identification. Bed in low position. Call 3 light in reach. Side rails up X2. Client placed on continuous cardiac and pulse oximetry monitoring. NIBP monitoring applied. Door closed. Noise minimized. Lights dimmed. Warm blanket given. 22:00 Arm band placed on. eh3 22:16 Monet Ovalles, JCARLOS is Primary Nurse. 3 22:25 Inserted saline lock: 20 gauge in right antecubital area, using aseptic technique. eh3 23:45 IV discontinued, intact, bleeding controlled, No redness/swelling at site. Pressure 3 dressing applied. 23:45 No provider procedures requiring assistance completed. 3 02/04 00:52 Triage completed. 3 Administered Medications: 0203 22:30 Drug: DuoNeb (albuterol 2.5 mg, ipratropium 0.5 mg) (3:1) (2.5 mg - 0.5 mg) 3 ml Route: eh3 Nebulizer; 23:23 Follow up: Response: Wheezing diminished eh3 22:30 Drug: Ketorolac 10 mg 10 mg Route: IVP; Site: right antecubital; eh3 23:23 Follow up: Response: Pain is decreased 3 22:30 Drug: Ketamine 20 mg Route: IVP; Site: right antecubital; eh3 23:23 Follow up: Response: Pain is decreased 3 23:15 Drug: Dexamethasone 10 mg Route: IVP; Site: right antecubital; eh3 23:45 Follow up: Response: No adverse reaction 3 Medication: 23:45 VIS not applicable for this client. 3 Outcome: 23:21 Discharge ordered by . jr11 23:45 Patient left the ED. 3 23:45 Discharged to home via wheelchair, with family. 3 23:45 Condition: stable 23:45 Discharge instructions given to patient, family, Instructed on discharge instructions, follow up and referral plans. Demonstrated understanding of instructions, follow-up care. Signatures: Mary Klein Puneet Garcia MD MD [facility] Monet Ovalles, JCARLOS RN 3 Corrections: (The following items were deleted from the chart) 12/05 00:54 00:26 Patient left the ED. eh3 eh3
--- NOTE | 2022-12-04 23:21 | EDPHYS ---
Physician Documentation [facility] Name: Maria De Jesus Acosta Age: 57 yrs Sex: Female : 1965 Arrival Date: 12/04/2022 Time: 21:59 Bed 13 Private MD: MAYNOR Physician Puneet Garcia HPI: 12/04 22:15 This 57 yrs old Female presents to ER via Unassigned with complaints of jr11 Headache. 22:15 Patient is a 57-year-old patient of Dr. Luu from [facility] radiology oncology here jr11 for persistent sinus pain. 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 Putting pressure on her brain now. Patient states that 2 days ago she was put on Dilaudid, has been taking it every 4 hours, has taken 9 in the last 2 days but is not helping with her pain so her doctor told her to come here. Patient states that there is no change or quality to this pain she is just not getting any relief from this aggressive tumor as she calls it. Denies any new complaints.. 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 - Social history:: Smoking status: Patient denies any tobacco usage or history of. ROS: 22:15 All other systems are negative. jr11 Exam: 22:15 Constitutional: morbidly obese Head/Face: Normocephalic, atraumatic. Eyes: jr11 Extra-ocular motions intact. Lids and lashes normal. Conjunctiva and sclera are non-icteric and not injected. Cornea within normal limits. Periorbital areas with no swelling, redness, or edema. ENT: Nares patent. No nasal discharge, no septal abnormalities noted. Oropharynx with no redness, swelling, or masses, exudates, or evidence of obstruction, uvula midline. Mucous membranes moist. Chest/axilla: Normal chest wall appearance and motion. Nontender with no deformity. No lesions are appreciated. Cardiovascular: Regular rate and rhythm with a normal S1 and S2. No gallops, murmurs, or rubs. Normal PMI, no JVD. No pulse deficits. Respiratory: exp wheezing Abdomen/GI: Soft, non-tender, with normal bowel sounds. No distension or tympany. No guarding or rebound. No evidence of tenderness throughout. Back: No spinal tenderness. No costovertebral tenderness. Full range of motion. Skin: Warm, dry with normal turgor. Normal color with no rashes, no lesions, and no evidence of cellulitis. MS/ Extremity: Pulses equal, no cyanosis. Neurovascular intact. Full, normal range of motion. Neuro: Awake and alert, GCS 15, oriented to person, place, time, and situation. No gross motor or sensory deficits. Vital Signs: 22:00 BP 158 / 85; Pulse 95; Resp 20; Temp 98.4(O); Pulse Ox 91% on R/A; Weight 147.42 kg; eh3 Height 5 ft. 0 in. (152.40 cm); Pain 10/10; 22:30 BP 141 / 80; Pulse 96; Resp 16; Pulse Ox 91% on R/A; eh3 22:00 Body Mass Index 63.47 (147.42 kg, 152.40 cm) 3 MDM: 22:08 Patient medically screened. jr11 22:15 Differential diagnosis: Patient with cancer related pain, states no change in quality jr11 or but she is not getting any sleep. Patient was sent here by primary care doctor, given that she is already on Dilaudid has COPD and morbid obesity, worried about increasing opioid use and causing apnea. We will try nonopioid alternatives and call Dr. Luu. Data reviewed: vital signs, nurses notes. External Records Reviewed: Outpatient record: MD gonzales records to bedside, looked at all medication. 23:18 Consideration of Admission/Observation Escalation of care including jr11 admission/observation considered. but pain was controlled in ED, no longer intractible . 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 Care significantly affected by the following chronic conditions: Obesity. Medication response: No more pain, pt very comfortable requesting to go home, sat 91-92% room air but is at 3 L at home. 12/04 22:14 Order name: IV; Complete Time: 22:48 jr11 Administered Medications: 22:30 Drug: DuoNeb (albuterol 2.5 mg, ipratropium 0.5 mg) (3:1) (2.5 mg - 0.5 mg) 3 ml Route: 3 Nebulizer; 23:23 Follow up: Response: Wheezing diminished 3 22:30 Drug: Ketorolac 10 mg 10 mg Route: IVP; Site: right antecubital; eh3 23:23 Follow up: Response: Pain is decreased 3 22:30 Drug: Ketamine 20 mg Route: IVP; Site: right antecubital; eh3 23:23 Follow up: Response: Pain is decreased 3 23:15 Drug: Dexamethasone 10 mg Route: IVP; Site: right antecubital; eh3 23:45 Follow up: Response: No adverse reaction eh3 Disposition Summary: 12/04/22 23:21 Discharge Ordered Location: Home jr11 Condition: Stable jr11 Diagnosis - Other headache syndrome jr11 - severe cancer related pain, neuropathic pain jr11 Discharge Instructions: - Discharge Summary Sheet jr11 - General Headache Without Cause jr11 Forms: - Medication Reconciliation Form jr11 - Thank You Letter jr11 - Antibiotic Education jr11 - Prescription Opioid Use jr11 Signatures: Puneet Garcia MD MD jr11 Monet Ovalles RN RN 3
[2022-12-05 00:47] VITALS: TEMP 98.4; O2SAT 91
[2022-12-05 00:54] VITALS: BP 141/80
== END 2022-12-05 00:26 | disposition home or self-care (01) ==
LOC: ER 21:56
DX: G89.3 Neoplasm related pain (acute) (chronic) (principal); C30.0 Malignant neoplasm of nasal cavity; I10 Essential (primary) hypertension; Z88.1 Allergy status to other antibiotic agents; Z88.8 Allergy status to other drugs, medicaments and biological substances; Z91.018 Allergy to other foods
CPT/HCPCS: 94640; 96375; 96374; 99284; J7613; J7644; J1100

== ENCOUNTER 2023-03-14 08:00 | Emergency (ER) | payer OTHER ==
--- OUTSIDE RECORDS SUMMARY | 2023-03-14 08:10 | XMS REPORT | Clinical Summary ---
:1965 Author Organization [facility] MD [facility] Address [address] [place] [address] Care Team Providers Name Role Phone Bina Obando MD Unavailable Kenya Agarwal MD Primary Care Provider Trent Irving MD Unavailable Randall Sheriff MD Unavailable Vignesh Waddell MD Unavailable Naa Miller [facility] Rafael Rosas MD Unavailable Suzanne Mcgrath MD Unavailable Allergies Active Allergy Reactions Severity Noted Date Comments Doxycycline GI Intolerance, High 01/14/2015 Other reacti on(s): Nausea And Vomiting Unknown Other reaction( s): n/v, Nausea/Vomiting , Unknown Kiwi (Actinidia Anaphylaxis, Other High 01/25/2022 Chinensis) (See Comments) Pregabalin Other (See 01/12/2023 depression Comments) Metoclopramide GI Intolerance, High 01/14/2015 Other [...] to her allergies f ollowing a procedure Protem Juice Nausea And Low 04/18/2021 Vomiting, GI Intolerance Medications Medication Sig Dispensed Refills Start End Status Date Date albuterol (VENTOLIN every 6 (six) 0 10/19/20 Active HFA,PROAIR HFA) 90 hours as 22 mcg/puff inhaler needed. ALPRAZolam (XANAX) 2 every 8 0 10/20/20 Active mg tablet (eight) hours 22 as needed for anxiety. amLODIPine (NORVASC) 5 TAKE 1 TABLET 0 10/13/20 Active mg tablet BY MOUTH EVERY 22 DAY atorvastatin (LIPITOR) TAKE 1 TABLET 0 09/12/20 Active 20 mg tablet BY MOUTH EVERY 22 DAY Trelegy Ellipta INHALE 1 PUFF 0 09/18/20 Active 100-62.5-25 mcg dsdv BY MOUTH EVERY 22 DAY mesalamine (APRISO) TAKE 4 0 08/24/20 Active 0.375 gram 24 hr CAPSULES BY 22 capsule MOUTH DAILY pantoprazole TAKE 1 TABLET 0 10/13/20 Act rosales (PROTONIX) 40 mg EC BY MOUTH DAILY 22 tablet Motegrity 2 mg tab TAKE 1 TABLET 0 07/26/20 Active BY MOUTH DAILY 22 zolpidem (AMBIEN) 10 TAKE 1 TABLET 0 10/17/20 Active mg tablet BY MOUTH AT 22 BEDTIME NEEDED FOR INSOMNIA Victoza 2-Ze 0.6 Inject 0.3 mL 9 mL 3 12/15/19 Active mg/0.1 mL (18 mg/3 mL) (1.8 mg) under 23 pnij the skin injectionIndications: daily. Type 2 diabetes mellitus without complication prochlorperazine Take 1 tablet 60 tablet 3 12/17/19 Active (Compazine) 10 mg (10 mg) by 23 tabletIndications: mouth every 6 Adenoid cystic (six) hours as carcinoma of needed for nasopharynx, NOS nausea or vomiting (if not controlled by Ondansetron). lisinopril Take 1 tablet 0 Activ e (PRINIVIL,ZESTRIL) 40 (40 mg) by mg tablet mouth every morning. naloxone (Narcan) 4 1 dose into 2 each 0 01/21/20 Active mg/actuation nasal one nostril as 23 sprayIndications: Long needed for term current use of opioid opiate analgesic overdose. another dose into the other nostril after 2 minutes if the patient does not respond pen needle, diabetic Use to inject 100 each 1 02/01/20 Active (Easy Comfort Pen insulin 4 23 Jerome) 31 gauge x times a day 03/16" ndleIndications: Type 2 diabetes mellitus with hyperglycemia ondansetron (ZOFRAN) 8 Take 1 tablet 30 tablet 3 02/05/20/ / Active mg tabletIndications: (8 mg) by 23 024 Adenoid cystic mouth every 8 carcinoma of (eight) hours nasopharynx, NOS as needed for nausea or vomiting. lidocaine (XYLOCAINE) Swish and 100 mL 3 02/05/20 Active 20 mg/mL (2%) viscous swallow 5 mL 23 solutionIndications: every 6 (six) Adenocarcinoma of hours as nasopharynx needed (painful swallowing). fluticasone propionate Inhale 2 11.1 mL 3 02/05/20 Active (FLONASE) 50 mcg/spray sprays (100 23 nasal mcg) into each sprayIndications: nostril twice Adenoid cystic daily. carcinoma of nasopharynx, NOS allopurinol (ZYLOPRIM) Take 1 tablet 0 Active 300 mg (300 mg) by tabletIndications: mouth twice prevention of acute daily. gout attack colchicine (COLCRYS) Take 1 tablet 0 Active 0.6 mg (0.6 mg) by tabletIndications: mouth daily. prevention of acute gout attack dicyclomine (BENTYL) Take 1 capsule 0 Active 10 mg capsule (10 mg) by mouth 3 (three) times a day. enoxaparin (LOVENOX) Inject 0.8 mL 60 each 0 02/13/20 Active 120 mg/0.8 mL (120 mg) under 23 prefilled the skin every syringeIndications: 12 (twelve) Deep venous thrombosis hours. <Unspecified side> insulin regular hum Inject 70-180 30 mL 11 02/17/20 Active U-500 conc (HumuLIN R Units under 23 U-500, Conc, Kwikpen) the skin daily 500 unit/mL (3 mL) with breakfast insulin AND 40-105 penIndications: Type 2 Units daily diabetes mellitus before lunch without complication AND 35-95 Units daily before dinner. pseudoephedrine Take 1 tablet 60 tablet 0 02/27/20 Active (Sudafed) 30 mg (30 mg) by 23 tabletIndications: mouth every 8 Chronic pain (eight) hours as needed for congestion. gabapentin (NEURONTIN) TAKE 1 90 tablet 0 03/02/20 Active 800 mg TABLET(800 MG) 23 tabletIndications: BY MOUTH EVERY Chronic pain 8 HOURS oxyCODONE-acetaminophe Take 1 tablet 60 tablet 0 03/04/20 Active n (Percocet) 5 mg-325 by mouth 2 23 mg per (two) times a tabletIndications: day as needed Cancer associated pain for severe pain. allopurinol (ZYLOPRIM) TAKE 1 TABLET 0 09/01/2021/12 Discontinued 300 mg tablet BY MOUTH TWICE ( Stop Taking at DAILY Discharge) cloNIDine HCl TAKE 1 TABLET 0 11/09/19 Di scontinued (CATAPRES) 0.2 mg BY MOUTH THREE (Stop Taking at tablet TIMES DAILY Discharg e) cetirizine (ZyrTEC) 10 TAKE 1 TABLET 0 10/29/2015/12 Discontinued mg tablet BY MOUTH ONCE (Error ) DAILY NEEDED FOR ALLERGIES colchicine (COLCRYS) TAKE 1 TABLET 0 09/21/2001/18 Discontinued 0.6 mg tablet BY MOUTH DAILY ( Stop Taking at Discharge) diclofenac sodium APPLY 0 10/21/20 Di scontinued (Voltaren) 1 % gel TOPICALLY TO (Stop Taking at THE AFFECTED Dischar ge) AREA THREE TIMES DAILY dicyclomine (BENTYL) TAKE 1 CAPSULE 0 10/12/202 0/2 Discontinued 10 mg capsule BY MOUTH EVERY ( Stop Taking at 8 HOURS Discharge) gabapentin (NEURONTIN) TAKE 1 TABLET 0 10/21/2015/12 Discontinued 600 mg tablet BY MOUTH IN (Sto p Taking at THE MORNING Discharg e) AND AT NOON AND IN THE EVENING hydrALAZINE TAKE 1 TABLET 0 10/01/20 Disc ontinued (APRESOLINE) 100 mg BY MOUTH THREE (Stop Taking at tablet TIMES DAILY Discharg e) hydroCHLOROthiazide 1 capsule 0 11/09/19 Discontinued (MICROZIDE) 12.5 mg (12.5 mg) 023 capsule every morning. HYDROcodone-acetaminop TAKE 1 TABLET 0 10/21/2015/12 Discontinued hen (NORCO) 7.5 mg-325 BY MOUTH EVERY 23 12 3 (Stop Taking at mg per tablet 6 HOURS Disch arge) NEEDED FOR PAIN OR CHRONIC PAIN hydrocortisone 1 % APPLY TWICE 0 09/10/20 Discontinued crpe DAILY IN AND (Error) AROUND THE RECTUM AFTER SITZ BATH hydrocortisone UNWRAP AND 0 11/06/19 Disc ontinued (ANUSOL-HC) 25 mg INSERT ONE (1) (Error) suppository SUPPOSITORY IN THE RECTUM TWICE A DAY. HumuLIN 70/30 U-100 0 11/16/19 Discontinued Insulin 100 unit/mL (Stop Taking at (70-30) injection Di kortney) Victoza 2-Ze 0.6 ADMINISTER 1.8 0 10/01/20 Discontinued mg/0.1 mL (18 mg/3 mL) MG UNDER THE (Reorder) pnij injection SKIN EVERY DAY lisinopril TAKE 1/2 0 10/01/20 Discontin ued (PRINIVIL,ZESTRIL) 40 TABLET BY (Stop Taking at mg tablet MOUTH TWICE Discharg e) DAILY lubiprostone (AMITIZA) TAKE 1 CAPSULE 0 03/31/20 Discontinued 24 MCG capsule BY MOUTH TWICE (Error) DAILY metFORMIN (GLUCOPHAGE) TAKE 1 TABLET 0 09/21/2015/12 Discontinued 1000 mg tablet BY MOUTH IN (St op Taking at THE MORNING Discharg e) AND IN THE EVENING WITH MEALS metoprolol tartrate TAKE 1 TABLET 0 11/03/19 Discontinued (LOPRESSOR) 100 mg BY MOUTH TWICE (Reorder) tablet DAILY nitroglycerin PLACE 1 TABLET 0 09/18/20 D iscontinued (NITROSTAT) 0.4 mg SL UNDER THE (Error) tablet TONGUE EVERY 5 MINUTES FOR CHEST PAIN. BD Devorah 2nd Gen Pen USE 0 10/05/20 Discontinued Needle 32 gauge x DIRECTED. 22 023 (R eorder) 5/32" ndle rizatriptan 0 08/25/20 Disconti nued (MAXALT-EPIC WILLOW ANALYST) 5 mg (E rror) disintegrating tablet spironolactone TAKE 1 TABLET 0 10/19/20 D iscontinued (ALDACTONE) 25 mg BY MOUTH EVERY (Stop Taking at tablet DAY Discharge) sucralfate (CARAFATE) TAKE 1 TABLET 0 08/20/2012/02 Discontinued 1 g tablet BY MOUTH TWICE (Sto p Taking at DAILY Discharge) insulin syringe-needle USE TWICE 0 10/01/20 Discontinued U-100 1 mL 31 gauge x DAILY WITH (Stop Taking at 516 syrg MEALS. Discharge) triamcinolone APPLY 0 08/28/20 Discon tinued (KENALOG) 0.1% cream TOPICALLY TO (Error) THE AFFECTED AREA TWICE DAILY BD Insulin Syringe USE 1 SYRINGE 0 03/03/20 Discontinued U-500 1/2 mL 31 gauge DIRECTED (Stop Taking at x 15/64" syrg TWICE DAILY Disc harge) WITH MEALS ondansetron Dissolve 1 30 tablet 0 11/26/19 Discont inued (ZOFRAN-ODT) 8 mg tablet (8 mg) (Reorder) disintegrating on the tongue tabletIndications: every 8 Adenocarcinoma of (eight) hours nasopharynx as needed for nausea. HYDROmorphone Take 1 tablet 60 tablet 0 12/02/19 Di scontinued (DILAUDID) 2 mg (2 mg) by 023 (Sto p Taking at tabletIndications: mouth every 4 Discharge) Adenocarcinoma of (four) hours nasopharynx as needed (cancer pain). dexamethasone Take 1 tablet 60 tablet 0 12/05/19 Di scontinued (DECADRON) 2 mg (2 mg) by 023 (Err or) tabletIndications: mouth twice Adenocarcinoma of daily. nasopharynx insulin regular hum Inject 110 to 24 mL 3 12/15/19 Discontinued U-500 conc (HumuLIN R 160 Units (Reorder) U-500, Conc, Kwikpen) under the skin 500 unit/mL (3 mL) 3 (three) insulin times a day penIndications: Type 2 before meals. diabetes mellitus without complication BD Devorah 2nd Gen Pen Inject 1 100 each 3 12/15/19 Discontinued Needle 32 gauge x Device under (Stop Taking at " ndleIndications: the skin 3 Discharge) Type 2 diabetes (three) times mellitus without a day before complication meals. gabapentin (NEURONTIN) Take 1 tablet 90 tablet 0 12/15/1912/31 Discontinued 600 mg (600 mg) by (Stop Ta paige at tabletIndications: mouth every 8 Discharge) Headache, not (eight) hours. otherwise specified celecoxib (CeleBREX) Take 1 capsule 30 capsule 0 12/16/1911/02 Discontinued 200 mg (200 mg) by (Therapy capsuleIndications: mouth daily. completed) Headache, not otherwise specified oxyCODONE-acetaminophe Take 1 tablet 90 tablet 0 12/15/1912/31 Discontinued n (Percocet) 5 mg-325 by mouth every (Reorder) mg per 4 (four) hours tabletIndications: as needed for Neoplasm related pain moderate pain. (acute) (chronic) metoprolol tartrate Take 1 tablet 60 tablet 0 12/15/19 Discontinued (LOPRESSOR) 50 mg (50 mg) by ( Reorder) tabletIndications: mouth twice Hypertension daily for 30 days. fluoride, sodium, Apply to teeth 56 g 0 12/16/19 Discontinued (DENTAGEL) 1.1% dental daily for 30 (Error) gelIndications: days. Adenoid cystic carcinoma of nasopharynx, NOS insulin regular hum Inject 110-160 24 mL 3 12/15/1901/18 Discontinued U-500 conc (HumuLIN R Units under (Reorder) U-500, Conc, Kwikpen) the skin 3 500 unit/mL (3 mL) (three) times insulin a day before penIndications: Type 2 meals. diabetes mellitus without complication pantoprazole Take 1 tablet 30 tablet 0 12/15/19 Dis continued (Protonix) 40 mg EC (40 mg) by (Stop Taking at tabletIndications: mouth every Discharge) Gastroesophageal morning before reflux disease breakfast for 30 days. ondansetron (ZOFRAN) 8 Take 1 tablet 30 tablet 3 12/17/1904/02 Discontinued mg tabletIndications: (8 mg) by (Reorder) Adenoid cystic mouth every 8 carcinoma of (eight) hours nasopharynx, NOS as needed for nausea or vomiting. ondansetron Dissolve 1 60 tablet 1 12/18/19 Discont inued (ZOFRAN-ODT) 8 mg tablet (8 mg) disintegrating on the tongue tabletIndications: every 8 Adenocarcinoma of (eight) hours nasopharynx as needed for nausea. sodium chloride (NS) Inject 10 mL 30 each 6 12/23/19 Discontinued 0.9% flush syringe 10 (1 syringe) (Stop Taking at mLIndications: Adenoid into each Discharge) cystic carcinoma of lumen of nasopharynx, NOS central venous catheter daily as directed. cyclobenzaprine Take 1 tablet 60 tablet 0 12/31/19 Discontinued (FLEXERIL) 10 mg (10 mg) by (R eorder) tabletIndications: mouth 3 Cancer associated pain (three) times a day as needed for muscle spasms (neck pain). pseudoephedrine Take 1 tablet 60 tablet 0 12/31/19 Discontinued (Sudafed) 30 mg (30 mg) by (Er ror) tabletIndications: mouth 2 (two) Cancer associated pain times a day as needed for congestion. oxyCODONE-acetaminophe Take 1 tablet 45 tablet 0 01/02/2015/12 Discontinued n (Percocet) 5 mg-325 by mouth every (Error) mg per 4 (four) hours tabletIndications: as needed for Neoplasm related pain moderate pain. (acute) (chronic) lidocaine (XYLOCAINE) Swish and 100 mL 3 01/05/20 Discontinued 20 mg/mL (2%) viscous swallow 5 mL (Stop Taking at solutionIndications: every 6 (six) Discharge) Adenocarcinoma of hours as nasopharynx needed (painful swallowing). hydrALAZINE Take 1 tablet 0 Disc ontinued (APRESOLINE) 100 mg (100 mg) by 023 (Stop Taking at tablet mouth 3 Discharge) (three) times a day. metFORMIN (GLUCOPHAGE) Take 1 tablet 0 21/12 Discontinued 1000 mg tablet (1,000 mg) by 023 ( Stop Taking at mouth 2 (two) Discha rge) times a day with meals. spironolactone Take 1 tablet 0 D iscontinued (ALDACTONE) 25 mg (25 mg) by 023 ( Stop Taking at tablet mouth daily. Dischar ge) oxyCODONE-acetaminophe Take 1 tablet 0 01/19/2021/12 Discontinued n (Percocet) 5 mg-325 by mouth every (Reorder) mg per 4 (four) hours tabletIndications: as needed for Neoplasm related pain moderate pain. (acute) (chronic) oxyCODONE-acetaminophe Take 1 tablet 60 tablet 0 01/19/2012/31 Discontinued n (Percocet) 5 mg-325 by mouth every (Stop Taking at mg per 6 (six) hours Discha rge) tabletIndications: as needed for Neoplasm related pain severe pain. (acute) (chronic) cyclobenzaprine Take 1 tablet 60 tablet 0 01/19/20 Discontinued (FLEXERIL) 10 mg (10 mg) by (T herapy tabletIndications: mouth 3 c ompleted) Cancer associated pain (three) times a day as needed for muscle spasms (neck pain). xyloxylin oral Swish and 480 mL 1 01/19/20 Disco ntinued suspension swallow 10 mL (Reor teetee) (AMB-CMPD)Indications: every 6 (six) Ulcerative oral hours as mucositis due to needed for antineoplastic therapy mouth pain. sucralfate (CARAFATE) Take 10 mL 420 mL 0 01/19/20 Discontinued 100 mg/mL (1,000 mg) by (Reord er) suspensionIndications: mouth 4 (four) Ulcerative oral times a day. mucositis due to antineoplastic therapy metoprolol tartrate Take 1 tablet 60 tablet 0 01/19/20 Discontinued (LOPRESSOR) 50 mg (50 mg) by ( Reorder) tabletIndications: mouth twice Hypertension daily for 30 days. insulin regular hum Inject 50 to 24 mL 3 01/19/20 Discontinued U-500 conc (HumuLIN R 125 Units (Reorder) U-500, Conc, Kwikpen) under the skin 500 unit/mL (3 mL) 3 (three) insulin times a day, penIndications: Type 2 before meals. diabetes mellitus Inject as without complication instructed at discharge. pen needle, diabetic Use as 10 each 0 01/19/20 Discontinued needle directed. (Reorder) sucralfate (CARAFATE) Take 10 mL 420 mL 0 01/19/20 Discontinued 100 mg/mL (1,000 mg) by (Reord er) suspensionIndications: mouth 4 (four) Ulcerative oral times a day. mucositis due to antineoplastic therapy xyloxylin oral Swish and 480 mL 1 01/19/20 Disco ntinued suspension swallow 10 mL (Reor teetee) (AMB-CMPD)Indications: every 6 (six) Ulcerative oral hours as mucositis due to needed for antineoplastic therapy mouth pain. metoprolol tartrate Take 1 tablet 60 tablet 0 01/19/20 (LOPRESSOR) 50 mg (50 mg) by tabletIndications: mouth twice Hypertension daily for 30 days. sucralfate (CARAFATE) Take 10 mL 420 mL 0 01/19/20 Discontinued 100 mg/mL (1,000 mg) by (Stop Taking at suspensionIndications: mouth 4 (four) Discharge) Ulcerative oral times a day. mucositis due to antineoplastic therapy xyloxylin oral Swish and 480 mL 1 01/19/20 Disco ntinued suspension swallow 10 mL 023 (Reor teetee) (AMB-CMPD)Indications: by mouth every Ulcerative oral 6 (six) hours mucositis due to as needed for antineoplastic therapy mouth pain. UNABLE TO FIND Compound Drug 0 01/19/20 D iscontinued (Stop Taki ng at Discharge) xyloxylin oral Swish and 480 mL 1 01/21/20 Disco ntinued suspension swallow 10 mL (Stop Taking at (AMB-CMPD)Indications: 2 (two) times Discharge) Ulcerative oral a day as mucositis due to needed for antineoplastic therapy mouth pain. insulin regular Inject 5 units 10 mL 1 02/01/20 Discontinued (HumuLIN R Regular to 25 units (Stop Taking at U-100 Insuln) 100 with meals as Discharge) units/mL needed for injectionIndications: blood sugar Type 2 diabetes greater than mellitus with 150 mg/dL hyperglycemia insulin regular hum Inject 50 to 24 mL 3 02/01/20 Discontinued U-500 conc (HumuLIN R 125 Units (Reorder) U-500, Conc, Kwikpen) under the skin 500 unit/mL (3 mL) 3 (three) insulin times a day, penIndications: Type 2 before meals. diabetes mellitus Inject as without complication instructed at discharge. pen needle, diabetic Use as 10 each 0 02/01/20 Discontinued needle directed. (Stop Taki ng at Discharge) insulin syringe-needle USE 360 each 3 02/03/20 Discontinued U-100 1 mL 31 gauge x DIRECTED FOUR (Stop Taking at 16 syrgIndications: TIMES DAILY Discharge) Type 2 diabetes mellitus with hyperglycemia gabapentin (NEURONTIN) Take 1 tablet 90 tablet 0 02/02/2012/03 Discontinued 800 mg (800 mg) by tabletIndications: mouth every 8 Chronic pain (eight) hours. oxyCODONE-acetaminophe Take 1 tablet 30 tablet 0 02/02/2001/31 Discontinued n (PERCOCET) 7.5-325 by mouth every (Dose mg per 6 (six) hours adjust ment) tabletIndications: as needed for Chronic pain severe pain. hydrALAZINE Take 1 tablet 0 Disc ontinued (APRESOLINE) 100 mg (100 mg) by (Stop Taking at tabletIndications: mouth 3 D ischarge) hypertension (three) times a day. hydroCHLOROthiazide Take 1 capsule 0 02/16 Discontinued (MICROZIDE) 12.5 mg (12.5 mg) by (Stop Taking at capsule mouth every Discharg e) morning. cloNIDine HCl Take 1 tablet 0 Di scontinued (CATAPRES) 0.2 mg (0.2 mg) by 023 (Stop Taking at tablet mouth 3 Discharge) (three) times a day as needed. oxyCODONE-acetaminophe Take 1 tablet 45 tablet 0 02/13/2019/12 Discontinued n (Percocet) 7.5-325 by mouth every 23 023 (Stop Taking at mg per 6 (six) hours Discha rge) tabletIndications: as needed for Neoplasm related pain severe pain (acute) (chronic) for up to 45 days. levoFLOXacin Take 1 tablet 3 tablet 0 02/17/20 Exp ired (LEVAQUIN) 750 mg (750 mg) by 23 023 tabletIndications: mouth daily Adenoid cystic for 3 days. carcinoma of nasopharynx, NOS, Deep venous thrombosis <Unspecified side> Active Problems Problem Noted Date Febrile neutropenia 02/06/2023 Shortness of breath 02/06/2023 Central line associated bloodstream infection 02/07/20 23 Disorder of fluid AND/OR electrolyte 02/06/2023 Other secondary thrombocytopenia 02/06/2023 Intractable nausea and vomiting 02/05/2023 Hematochezia 01/27/2023 Abdominal pain, epigastric 01/26/2023 Other severe protein-calorie malnutrition 01/25/2023 Insulin resistance 01/18/2023 History of fall 01/12/2023 Type 2 diabetes mellitus with hyperglycemia 01/12/2023 Hemoglobin A1c greater than 10 percent indicating poor diabetic control 01/12/2023 Malnutrition of moderate degree 01/12/2023 Mucositis due to antineoplastic therapy 01/11/2023 Swallowing painful 01/11/2023 assisted current use of systemic steroid 12/10/2022 Current use of insulin 12/10/2022 Adverse effect of glucocorticoids and synthetic analog ues 12/10/2022 Headache 12/09/2022 Adenoid cystic carcinoma of nasopharynx, 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: Stage WINDY (cT4, cN0, cM0) - Unsigned Essential hypertension 02/15/2020 Gastroesophageal reflux disease 07/28/2018 Other hyperlipidemia 07/28/2018 Severe protein-calorie malnutrition Encounters Date Type Specialty Care Team Description 03/12/2023 Kenya Mcdaniels MD Martin, Cathy A, ADAM 03/11/2023 Infusion Infusion Services Lemuel, Adenoid cy stic Lorena carcinoma of Kayla, HELMET HAT SWEATBAND PUNCHER nasopharynx, 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) 03/11/2023 Follow-Up Oncology Lemuel, Adenoid cystic Lorena carcinoma of Kayla, HELMET HAT SWEATBAND PUNCHER nasopharynx, 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) 03/11/2023 Travel 03/09/2023 Telephone Oncology Lorena Hdez, [facility] 03/04/2023 Nutrition Kenya Gastelum MD Martin, Cathy A, ADAM 03/04/2023 Orders Only Oncology Lorena Hdez, HEL[employer] H[employer] SWEATBAND PUNCHER 03/04/2023 Telephone Thoracic Medicine Tita Kwon RN 03/04/2023 Orders Only Pain Medicine Evan, Cancer associa kaylie Fernandez MD pain (Primary Dx) 03/03/2023 Follow-Up Thoracic Medicine Kenny Power, Adenoid cy stic carcinoma of nasopharynx, NOS; MD Vaibhav Deep venous thr ombosis <Unspecified side> 03/03/2023 Refill Pain Medicine Tyrell Chronic pain 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, 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 03/03/2023 Travel 03/02/2023 Refill Pain Medicine Tyrell Chronic pain 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, 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 02/26/2023 Telemedicine Pain Medicine Evan Chronic pain ( Primary Miguel Fernandez MD Dx) 02/25/2023 Nutrition Kenya Gastelum MD Martin, Cathy A, ADAM 02/19/2023 Telephone Radiation Oncology Anthony Lancaster RN 02/18/2023 Kenya Mcdaniels MD Martin, Cathy A, ADAM 02/12/2023 Clinical Support Radiation Oncology NorfolkWinter MD 02/12/2023 Hospital Encounter Radiation Oncology Kenya Agarwal MD 02/12/2023 Documentation Radiation Oncology Winter Luu MD 02/12/2023 Orders Only Radiation Oncology Winter Luu Adenocarc inoma of nasopharynx (Primary Dx); MD Gini Adenoid cystic carcinoma of nasopharynx, NOS 02/12/2023 Orders Only Pain Medicine Teo, Neoplasm relat ed pain (acute) (chronic) (Primary Dx); MD Elvis Chronic pain 02/10/2023 Orders Only Speech Pathology Charla Solis Oropharynge jessica Eckert 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 dysphagia (Prim cristina Dx) 02/08/2023 Hospital Encounter Radiation Oncology Kenya Agarwal MD 02/06/2023 Travel 02/05/2023 Hospital Encounter GIM/Phase 1 Deneen Guevara, Intractab le nausea and vomiting (Primary Dx); - Type 2 diabetes mellitus with hyperglyce moncho; 02/16/2023 Wattana, Swallowing pain ful; MD Felisa Dyspnea; Brooks, Adenoid cystic carcinoma of nasopharynx, NOS; MD Romana Chronic pain; Amanda Proctor, Deep venous th rombosis <Unspecified side>; Type 2 diabetes mellitus without complic ation; Soria, Son Shortness of br MD Bridget Alford Norman, MD Mohammed, MD Phyllis See Michelle, MD 02/05/2023 Telephone Thoracic Medicine Kenny Power, ... (The p atient's MD Vaibhav son called that is not feeling well sh e feels cold and hyperventilatin g little bit, but the son said she do ing okay but wants to know should she come see or just take her Emerge ncy Room/) 02/04/2023 Follow-Up Thoracic Medicine Duy Rosario MD carcinoma of nasopharynx, NO S 02/04/2023 Clinical Support Radiation Oncology Winter Luu carcinoma of nasopharynx (Primary Dx); MD Gini Adenoid cystic carcinoma of nasopharynx, NOS 02/04/2023 Travel 02/03/2023 Infusion Infusion Services Duy Rosario MD carcinoma of nasopharynx, 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) 02/03/2023 Orders Only Oncology Lorena Hdez FNP 02/03/2023 Travel 02/02/2023 Travel 01/31/2023 Refill Internal Medicine Rohan, Type 2 juliet ryan Peñaloza, mellitus with MACHINE RUG CLEANER hyperglycemia (Primary Dx) 01/28/2023 Telephone Radiation Oncology Felisa Castillo, RN 01/28/2023 Orders Only Oncology Lorena Hdez, HELMET HAT SWEATBAND PUNCHER 01/26/2023 Hospital Encounter Uro/Ortho/GI Julioa, Chronic p ain (Primary Dx); - MD Felisa Swallowing painful; 02/01/2023 Amanda, Abdominal pain, epigastric; MD Jad Rectal hemorrhage; Amanda Proctor, Mucositis due to antineoplastic therapy; Adenoid cystic carcinoma of nasopharynx, NOS; Karissa, Hypomagnesemia; Rudy, Severe protein -calorie malnutrition; MD Encounter for adjustment and management of vascular access device; Dillon Agrawal, Type 2 diabete s mellitus with hyperglycemia; Type 2 diabetes mellitus without complic ation; Kt Hematochezia Rashaun Wiley MD 01/26/2023 Travel 01/26/2023 Telephone Radiation Oncology Felisa Castillo, JCARLOS 01/26/2023 Telephone Radiation Oncology Felisa Castillo RN 01/25/2023 Nutrition Nutrition Kenya Agarwal MD Martin, Cathy A, RD 01/25/2023 Hospital Encounter Radiation Oncology Kenya Agarwal MD 01/25/2023 Telephone Radiation Oncology Felisa Castillo RN 01/22/2023 Nutrition Nutrition Kenya Agarwal MD Martin, Cathy A, RD 01/22/2023 Travel 01/21/2023 Infusion Infusion Services Lemuel, Adenoid cy stic Lorena carcinoma of Kayla, HELMET HAT SWEATBAND PUNCHER nasopharynx, 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) 01/21/2023 Follow-Up Thoracic Medicine Kenny Power Adenoid cy rain Esposito MD carcinoma of nasopharynx, 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) 01/21/2023 Travel 01/20/2023 Consult Pain Medicine Williams, assisted cur rent use of opiate analgesic (Primary Dx); Rogerio, Adenocarcinoma of nasopharynx; 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; Neoplasm relate d pain (acute) (chronic) 01/20/2023 Documentation Pain Medicine Randall Ferrer 01/20/2023 Travel 01/19/2023 Clinical Support Radiation Oncology Winter Luu MD 01/19/2023 Travel 01/14/2023 Orders Only Speech Pathology Gorman, Dysphagia, Mukund oropharyngeal p hasjessica MartHelen, (Primary Dx) 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 01/12/2023 Refill Internal Medicine Yao Ordaz MD 01/11/2023 Hospital Encounter /GI Med Regulo, Headache, not otherwise specified (Primary Dx); - MD Reva Dehydration; 01/18/2023 Nico, Mucositis; MD Roberto Carlos Type 2 diabetes mellitus without complic ation; Chung Soria Current use of insulin; MD Radha Adenoid cystic carcinoma of nasopharynx, NOS; Lee, Cancer associat ed pain; Mayoora, DO Malnutrition of moderate degree; Dillon Agrawal, Hemoglobin A1c greater than 10 percent indicating poor diabetic control; Type 2 diabetes mellitus with hyperglycemia; History of fall ; Swallowing pain ful; 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; Adverse effect of glucocorticoids and synthetic analogues, subsequent encounter; assisted curre nt use of systemic steroid; Hyperlipidemia, not otherwise specified; Gastroesophagea l reflux disease; Essential hyper tension; Mucositis (ulce rative) due to antineoplastic therapy; Neoplasm relate d pain (acute) (chronic); Hypertension; 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; Insulin resista nce 01/11/2023 Travel 01/11/2023 Telephone Radiation Oncology Felisa Castillo, RN 01/08/2023 Nutrition Nutrition Kenya Agarwal MD Martin, Cathy A, ADAM 01/08/2023 Travel 01/07/2023 Infusion Infusion Services Lemuel Adenoid cy stic Lorena carcinoma of Kayla, [employer] nasopharynx, 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) 01/07/2023 Follow-Up Oncology Lemuel, Adenoid cystic Lorena carcinoma of Kayla, [employer] nasopharynx, 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) 01/07/2023 Travel 01/06/2023 Infusion Infusion Services Lemuel, Adenoid cy stic [place]ore[place] carcinoma of Kayla, [employer] nasopharynx, 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) 01/06/2023 Travel 01/05/2023 Travel 01/04/2023 Clinical Support Radiation Oncology Winter Luu MD nasopharynx (Pr imary Dx) 01/04/2023 Infusion Infusion Services Lemuel Adenoid cy stic Lorena carcinoma of Kayla, [employer] nasopharynx, 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) 01/04/2023 Travel 01/01/2023 Infusion Infusion Services Lemuel Adenoid cy stic [place] carcinoma of Kayla, [employer] nasopharynx, 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) 01/01/2023 Follow-Up Thoracic Medicine Cox Duy Power cy stic carcinoma of nasopharynx, NOS (Primary Dx); MD Vaibhav Neoplasm relate d pain (acute) (chronic) 01/01/2023 Refill Pain Medicine Geo, Neoplasm relat ed pain Brittni Benjamin RN (acute) (chroni c) 01/01/2023 Travel 12/31/2022 Telephone Thoracic Medicine Doyle, Pain med r equest and tom Cisneros - missed RN treatment 12/31/2022 Orders Only Oncology Lemuel, Adenoid cystic Lorena carcinoma of Kayla, [employer] nasopharynx, 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) 12/30/2022 Hospital Encounter Pain Medicine Evan, Cancer a ssociated pain (Primary Dx); Miguel Fernandez MD Headache, not otherwise specified 12/30/2022 Travel 12/29/2022 Hospital Encounter Ophthalmology Al-Yan, Adenocar cinoma of nasopharynx; MD Suzanne Sixth (abducent ) nerve palsy, left eye; Diplopia; Corneal anesthe eleazar <Left side>; Disorder of tri geminal nerve, not otherwise specified 12/29/2022 Travel 12/28/2022 Clinical Support Radiation Oncology Winter Luu MD 12/28/2022 Nutrition Nutrition Kenya Agarwal MD Martin, Cathy A, RD 12/28/2022 Travel 12/25/2022 Travel 12/24/2022 Infusion Infusion Services Lemuel Adenoid cy stic [place]orena carcinoma of Kayla, [employer] nasopharynx, 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) 12/24/2022 Follow-Up Thoracic Medicine Kenny PowerDuy cy rain Esposito MD carcinoma of nasopharynx, NO S 12/24/2022 Telephone Radiation Oncology Felisa Castillo RN 12/24/2022 Telephone Head and Neck Kenya Agarwal MD 12/24/2022 Telephone Thoracic Medicine Tita Kwon RN 12/24/2022 Telephone Thoracic Medicine Tita Kwon RN 12/24/2022 Telephone Infusion Services Kenny Power, Medication Problem MD Vaibhav 12/24/2022 Travel 12/24/2022 Orders Only Thoracic Medicine Vaibhav Rosario MD 12/23/2022 Clinical Support Winter Alvarado Suspected C OVID-19 (Primary Dx); MD Gini Adenocarcinoma of nasopharynx Dony Calhoun MA 12/23/2022 Hospital Encounter Dental Oncology Hofstede, Adenoi d cystic Otilia, DDS carcinoma of nasopharynx, NO S 12/23/2022 Documentation Radiation Oncology Winter Luu MD 12/23/2022 Telephone Thoracic Medicine Kenny Power, Results (T est note ) MD Vaibhav 12/23/2022 Telephone Radiation Oncology Doyle, Results ( Test Tita Mayorga, note-per Daniela RN request) 12/23/2022 Travel 12/23/2022 Orders Only Oncology Hdez, Adenoid cystic Lorena carcinoma of Kayla, [employer] nasopharynx, 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) 12/18/2022 Orders Only Radiation Oncology Lindy Montenegro PA 12/18/2022 Orders Only Radiation Oncology Lan, Adenocarc inoma of Lindy nasopharynx BALJINDER Sotelo 12/17/2022 Clinical Support Radiation Oncology Kenya Agarwal MD Lawrence, Holly D, RN 12/17/2022 Documentation Radiation Oncology Winter Luu MD 12/17/2022 Documentation Radiation Oncology Winter Luu MD 12/17/2022 Documentation Radiation Oncology Winter Luu MD 12/17/2022 Orders Only Oncology Hdez, Adenoid cystic Lorena carcinoma of Kayla, [employer] nasopharynx, 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) 12/17/2022 Travel 12/17/2022 Orders Only Radiation Oncology Winter Luu MD 12/16/2022 Orders Only Radiation Oncology Winter Luu Adenocarc inoma of MD Gini nasopharynx (Pr imary Dx) 12/16/2022 Telephone Radiation Oncology Felisa Castillo RN 12/16/2022 Telephone Endocrinology Rosmery Dickinson RD 12/15/2022 Hospital Encounter Dental Oncology Kenya Agarwal MD observation for other suspected disea se ruled out 12/15/2022 Refill Radiation Oncology Lan, Adenocarc inoma of Lindy nasopharynx BALJINDER Sotelo 12/15/2022 Orders Only Pain Medicine Williams, Neoplasm rela kaylie pain Rogerio, (acute) (chron ic) (Primary Dx) 12/15/2022 Orders Only Pain Medicine Rogerio Kramer MD 12/15/2022 [facility] (abducen t) Maya, OD nerve palsy, le ft eye (Primary Dx) 12/15/2022 Ophth Exam Ophthalmology Dawson, Maya, OD 12/14/2022 Orders Only Dental Oncology Martínez, Encounter rani Hdz MD observation for other suspected disea se ruled out (Prim cristina Dx) 12/11/2022 Telephone Dental Oncology Triston Gomez RN 12/10/2022 Travel 12/10/2022 Orders Only Dental Oncology [facility], Encounter rani Hdz MD observation for other suspected disea se ruled out (Prim cristina Dx) 12/09/2022 Hospital Encounter General Internal Mer Milian Type 2 diabetes mellitus without complication (Primary Dx); - Noah Peñaloza MD Adenoid cystic carcinoma of nasopharynx, NOS; 12/15/2022 Nico, Headache; MD Roberto Carlos Blurring of visual image; Regulo, Adenocarcinoma of nasopharynx; MD Reva Encounter for observation for other susp ected disease ruled out; Altay, Headache, not o therwise specified; MD Abiodun Diplopia; Hancock, Hypertension; Rudy, Gastroesophage al reflux disease Travis Monk MD Brito-Dellan, Norman, MD Leung, Cerena, MD 12/08/2022 Telephone Radiation Oncology Lindy Montenegro PA 12/08/2022 Orders Only Oncology Lemuel, Adenoid cystic Lorena carcinoma of Kayla, [employer] nasopharynx, 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) 12/05/2022 Telephone Radiation Oncology Winter Luu MD 12/05/2022 Orders Only Radiation Oncology Winter Luu Adenocarc inoma of MD Gini nasopharynx (Pr imary Dx) 12/04/2022 Hospital Encounter Matthew Benitez MD Hess Lorena Kayla, [employer] 12/04/2022 Telephone Head and Neck McAnulty, Surgery Red Costa APN 12/04/2022 Multidisciplinary Visit Head and Neck Aniyaulty, Surgery Red Costa APN 12/04/2022 Telephone Radiation Oncology Maria Luz Cochran, RN 12/02/2022 Orders Only Radiation Oncology Lan, Adenocarc inoma of Lindy nasopharynx (Pr imary BALJINDER Sotelo Dx) 12/02/2022 Orders Only Radiation Oncology Winter Luu Adenocarc inoma of MD Gini nasopharynx (Pr imary Dx) 11/30/2022 Ancillary Procedure Radiology Lemuel, Adenocar cinoma of Lorena nasopharynx Kayla, [facility] 11/30/2022 Travel 11/27/2022 Ancillary Procedure Radiology Lan, Adenocar cinoma of nasopharynx; 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 BALJINDER Sotelo 11/27/2022 Travel 11/26/2022 Consult Thoracic Medicine Kenny Power Adenojeanneci nomkeenan of MD Vaibhav nasopharynx 11/26/2022 Consult Radiation Oncology Winter Luu Adenocarc inoma of nasopharynx; 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 11/26/2022 Travel 11/24/2022 Lab Requisition David Nunez MD Xu, Ya, MD 11/23/2022 Telephone Oncology Ofe Bardales, RN 11/22/2022 Orders Only Dental Oncology Olivier, Encounter rani Gooden MD observation for other suspected condi tion ruled out (Prim cristina Dx) 11/20/2022 Telephone Surgical Oncology Elana Child, RN 11/17/2022 Office Visit Head and Neck Kenya Agarwal of Surgery MD Sarah nasopharynx 11/17/2022 NPR Patient Access Kenya Agarwal MD 11/17/2022 Travel 11/16/2022 Orders Only Head and Neck McAnulty, Adenocarcinoma of Surgery Red M, nasopharynx (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) 11/12/2022 Orders Only Head and Neck Honeycutt, Surgery BALJINDER Branch 11/12/2022 Orders Only Head and Neck McAnulty, Adenocarcinoma of nasopharynx (Primary Dx); Surgery Red M, 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 after 03/14/2022 Surgical History Surgery Date Site/Laterality Comments APPENDECTOMY [id number] COLONOSCOPY [id number] CHOLECYSTECTOMY [id number] KNEE ARTHROPLASTY Right SHOULDER SURGERY 050@2010 Left UPPER GASTROINTESTINAL ENDOSCOPY [id number] SECTION, CLASSIC 11/01/1984 - 10/31/1985 PARTIAL HYSTERECTOMY 03/01/2012 - 03/31/2012 MYRINGOTOMY WITH ASPIRATION AND 11/01/2019 - 10/31/2020 INSERTION PE TUBES SLEEVE GASTROPLASTY N/A Medical History Medical History Date Comments Hypertension [id number] Hyperlipidemia [id number] Hearing loss [id number] Allergic rhinitis 99934383 Difficulty talking 22949984 Swallowing problem 25703783 Asthma 81901030 Chronic bronchitis 34452511 Dependence on continuous positive airway 20341405 pressure ventilation Fatty liver 23192227 Gastric reflux 72401908 Gastric ulcer 92881766 Crohn's disease 00661464 Gout 96080441 Type 2 diabetes mellitus with hyperglycemia 5326498 Anxiety 98640282 Chronic obstructive pulmonary disease On home supplemental oxygen Congestive heart disease Family History Medical History Relation Name Comments Diabetes Father Glaucoma Father Leukemia Father Cancer Maternal Uncle Colon cancer Maternal Uncle -Unknown cancer Mother Diabetes Mother Glaucoma Mother Diabetes Paternal Grandfather Leukemia Paternal Grandfather Diabetes Paternal Grandmother Ovarian cancer Sister Amblyopia Neg Hx Blindness Neg Hx Macular degeneration Neg Hx Retinal detachment Neg Hx Strabismus Neg Hx Relation Name Status Comments Cousin Other reported gastric cancer Father Maternal Uncle Mother Paternal Grandfather Paternal Grandmother Sister Social History Tobacco Use Types Packs/Day Years Used Date Smoking Tobacco: Former Cigarettes 0.3 0.5 Quit : 1987 Smokeless Tobacco: Never Tobacco Cessation: Counseling Given: Not Answered Alcohol Use Standard Drinks/Week Comments Not Currently 0 (1 standard drink = 0.6 oz pure alcoho l) Sex Assigned at Date Recorded Female 11/12/2022 2:07 PM [employer] Job Start Date Occupation Industry Not on file Not on file Not on file COVID-19 Exposure Response Date Recorded In the last 10 days, have you been in contact with No / Unsu re 03/11/2023 11:06 AM CDT someone who was confirmed or suspected to have Coronavirus/COVID-19? Obstetrics History Last Filed Vital Signs Vital Sign Reading Time Taken Comments Blood Pressure 129/76 03/11/2023 11:45 AM CDT Pulse 82 03/11/2023 11:45 AM CDT Temperature 36.4 C (97.5 F) 03/11/2023 11:45 AM CDT Respiratory Rate 16 03/11/2023 11:45 AM CDT Oxygen Saturation 93% 03/11/2023 11:45 AM CDT Inhaled Oxygen Concentration - - Weight 138.3 kg (304 lb 14.3 oz) 03/11/2023 11:45 AM CDT Height 155 cm (5' 1.02") 02/06/2023 8:19 AM CDT Body Mass Index 57.56 02/06/2023 8:19 AM CDT Plan of Treatment Date Type Specialty Care Team Description 03/18/2023 Infusion Infusion Services Lorena Hdez FNP [address] [place], [place] [address] 03/19/2023 Telemedicine Endocrinology Angela Lopes AP N [address] [place], [place] [address] 03/25/2023 Follow-Up Pain Medicine Miguel Gordon MD [address] [place] [address] 04/01/2023 Appointment Speech Pathology Monico Poole MD [address] [place] [id number] Charla Solis, [facility]-[employer]ODY LINE FINISHER [address] [place] [address] 04/01/2023 Office Visit Hematology Rosana Harkins MD [address] [place] [address] 04/15/2023 Telemedicine Gastroenterology, Sudhakar Saez, Hepatology & Nutrition [address] [place] [address] 04/22/2023 Lab Lab Winter Luu MD [address] [place] [address] 04/22/2023 Ancillary Procedure Radiology Winter Luu MD [address] [place] [address] 04/22/2023 Follow-Up Radiation Oncology Winter Luu MD [facility] [place], [place] [address] 04/22/2023 Follow-Up Thoracic Medicine Vaibhav Rosario MD [address] [place] [address] 07/22/2023 Appointment Ophthalmology Suzanne Mcgrath MD [address] [place] [address] Health Maintenance Due Date Last Done Comments COVID-19 Vaccination (4 - Booster 09/05/2021 07/11/2021, , for Moderna series) 12/03/2020 Procedures Procedure Name Priority Date/Time Associated Comments Diagnosis FRACTIONATED BILIRUBIN Routine 03/11/2023 Adenoid cystic Res ults for 11:15 AM CDT carcinoma of this procedure nasopharynx, NOS are in the results section. TOTAL PROTEIN Routine 03/11/2023 Adenoid cystic Results for 11:15 AM CDT carcinoma of this procedure nasopharynx, NOS are in the results section. ASPARTATE AMINOTRANSFERASE Routine 03/11/2023 Adenoid cystic Results for 11:15 AM CDT carcinoma of this procedure nasopharynx, NOS are in the results section. ALANINE AMINOTRANSFERASE Routine 03/11/2023 Adenoid cystic R esults for 11:15 AM CDT carcinoma of this procedure nasopharynx, NOS are in the results section. ALKALINE PHOSPHATASE Routine 03/11/2023 Adenoid cystic Resul ts for 11:15 AM CDT carcinoma of this procedure nasopharynx, NOS are in the results section. ALBUMIN LEVEL Routine 03/11/2023 Adenoid cystic Results for 11:15 AM CDT carcinoma of this procedure nasopharynx, NOS are in the results section. CALCIUM LEVEL TOTAL Routine 03/11/2023 Adenoid cystic Result s for 11:15 AM CDT carcinoma of this procedure nasopharynx, NOS are in the results section. .GLOMERULAR FILTRATION Routine 03/11/2023 Adenoid cystic Res ults for RATE 11:15 AM CDT carcinoma of this procedure nasopharynx, NOS are in the results section. SERUM CREATININE Routine 03/11/2023 Adenoid cystic Results f or 11:15 AM CDT carcinoma of this procedure nasopharynx, NOS are in the results section. ELECTROLYTE PANEL Routine 03/11/2023 Adenoid cystic Results for 11:15 AM CDT carcinoma of this procedure nasopharynx, NOS are in the results section. BLOOD UREA NITROGEN Routine 03/11/2023 Adenoid cystic Result s for 11:15 AM CDT carcinoma of this procedure nasopharynx, NOS are in the results section. GLUCOSE LEVEL Routine 03/11/2023 Adenoid cystic Results for 11:15 AM CDT carcinoma of this procedure nasopharynx, NOS are in the results section. MANUAL DIFFERENTIAL Routine 03/11/2023 Adenoid cystic Result s for 11:15 AM CDT carcinoma of this procedure nasopharynx, NOS are in the results section. Results CBC Routine 03/11/2023 Adenoid cystic Results for 11:15 AM CDT carcinoma of this procedure nasopharynx, NOS are in the results section. MAGNESIUM LEVEL Routine 03/11/2023 Adenoid cystic Results fo r 11:15 AM CDT carcinoma of this procedure nasopharynx, NOS are in the results section. COMPREHENSIVE METABOLIC Routine 03/11/2023 Adenoid cystic PANEL 11:15 AM CDT carcinoma of nasopharynx, NOS COMPLETE BLOOD COUNT W/ Routine 03/11/2023 Adenoid cystic DIFFERENTIAL 11:15 AM CDT carcinoma of nasopharynx, NOS FRACTIONATED BILIRUBIN Routine 03/03/2023 Adenoid cystic Res ults for 1:03 PM CDT carcinoma of this procedure nasopharynx, NOS are in the results section. TOTAL PROTEIN Routine 03/03/2023 Adenoid cystic Results for 1:03 PM CDT carcinoma of this procedure nasopharynx, NOS are in the results section. ASPARTATE AMINOTRANSFERASE Routine 03/03/2023 Adenoid cystic Results for 1:03 PM CDT carcinoma of this procedure nasopharynx, NOS are in the results section. ALANINE AMINOTRANSFERASE Routine 03/03/2023 Adenoid cystic R esults for 1:03 PM CDT carcinoma of this procedure nasopharynx, NOS are in the results section. ALKALINE PHOSPHATASE Routine 03/03/2023 Adenoid cystic Resul ts for 1:03 PM CDT carcinoma of this procedure nasopharynx, NOS are in the results section. ALBUMIN LEVEL Routine 03/03/2023 Adenoid cystic Results for 1:03 PM CDT carcinoma of this procedure nasopharynx, NOS are in the results section. CALCIUM LEVEL TOTAL Routine 03/03/2023 Adenoid cystic Result s for 1:03 PM CDT carcinoma of this procedure nasopharynx, NOS are in the results section. .GLOMERULAR FILTRATION Routine 03/03/2023 Adenoid cystic Res ults for RATE 1:03 PM CDT carcinoma of this procedure nasopharynx, NOS are in the results section. SERUM CREATININE Routine 03/03/2023 Adenoid cystic Results f or 1:03 PM CDT carcinoma of this procedure nasopharynx, NOS are in the results section. ELECTROLYTE PANEL Routine 03/03/2023 Adenoid cystic Results for 1:03 PM CDT carcinoma of this procedure nasopharynx, NOS are in the results section. BLOOD UREA NITROGEN Routine 03/03/2023 Adenoid cystic Result s for 1:03 PM CDT carcinoma of this procedure nasopharynx, NOS are in the results section. GLUCOSE LEVEL Routine 03/03/2023 Adenoid cystic Results for 1:03 PM CDT carcinoma of this procedure nasopharynx, NOS are in the results section. MANUAL DIFFERENTIAL Routine 03/03/2023 Adenoid cystic Result s for 1:03 PM CDT carcinoma of this procedure nasopharynx, NOS are in the results section. Results CBC Routine 03/03/2023 Adenoid cystic Results for 1:03 PM CDT carcinoma of this procedure nasopharynx, NOS are in the results section. MAGNESIUM LEVEL Routine 03/03/2023 Adenoid cystic Results fo r 1:03 PM CDT carcinoma of this procedure nasopharynx, NOS are in the results section. COMPREHENSIVE METABOLIC Routine 03/03/2023 Adenoid cystic PANEL 1:03 PM CDT carcinoma of nasopharynx, NOS COMPLETE BLOOD COUNT W/ Routine 03/03/2023 Adenoid cystic DIFFERENTIAL 1:03 PM CDT carcinoma of nasopharynx, NOS POC GLUCOSE SCREEN Routine 02/16/2023 Results f or 12:02 PM CDT this procedure are in the results section. ANTI-XA LEVEL Routine 02/16/2023 Results for 11:13 AM CDT this procedure are in the results section. POC GLUCOSE SCREEN Routine 02/16/2023 Results f or 7:20 AM CDT this procedure are in the results section. MANUAL DIFFERENTIAL AM 02/16/2023 Results for 6:15 AM CDT this procedure are in the results section. Results CBC AM 02/16/2023 Results for 6:15 AM CDT this procedure are in the results section. FRACTIONATED BILIRUBIN AM 02/16/2023 Resul ts for 6:15 AM CDT this procedure are in the results section. TOTAL PROTEIN AM 02/16/2023 Results for 6:15 AM CDT this procedure are in the results section. ASPARTATE AMINOTRANSFERASE AM 02/16/2023 R esults for 6:15 AM CDT this procedure are in the results section. ALANINE AMINOTRANSFERASE AM 02/16/2023 Res ults for 6:15 AM CDT this procedure are in the results section. ALKALINE PHOSPHATASE AM 02/16/2023 Results for 6:15 AM CDT this procedure are in the results section. ALBUMIN LEVEL AM 02/16/2023 Results for 6:15 AM CDT this procedure are in the results section. CALCIUM LEVEL TOTAL AM 02/16/2023 Results for 6:15 AM CDT this procedure are in the results section. .GLOMERULAR FILTRATION AM 02/16/2023 Resul ts for RATE 6:15 AM CDT this procedure are in the results section. SERUM CREATININE AM 02/16/2023 Results for 6:15 AM CDT this procedure are in the results section. ELECTROLYTE PANEL AM 02/16/2023 Results fo r 6:15 AM CDT this procedure are in the results section. BLOOD UREA NITROGEN AM 02/16/2023 Results for 6:15 AM CDT this procedure are in the results section. GLUCOSE LEVEL AM 02/16/2023 Results for 6:15 AM CDT this procedure are in the results section. COMPREHENSIVE METABOLIC AM 02/16/2023 PANEL 6:15 AM CDT COMPLETE BLOOD COUNT W/ AM 02/16/2023 DIFFERENTIAL 6:15 AM CDT PHOSPHORUS LEVEL AM 02/16/2023 Results for 6:15 AM CDT this procedure are in the results section. MAGNESIUM LEVEL AM 02/16/2023 Results for 6:15 AM CDT this procedure are in the results section. POC GLUCOSE SCREEN Routine 02/15/2023 Results f or 9:26 PM CDT this procedure are in the results section. POC GLUCOSE SCREEN Routine 02/15/2023 Results f or 5:30 PM CDT this procedure are in the results section. POC GLUCOSE SCREEN Routine 02/15/2023 Results f or 12:15 PM CDT this procedure are in the results section. POC GLUCOSE SCREEN Routine 02/15/2023 Results f or 7:03 AM CDT this procedure are in the results section. MANUAL DIFFERENTIAL AM 02/15/2023 Results for 6:24 AM CDT this procedure are in the results section. Results CBC AM 02/15/2023 Results for 6:24 AM CDT this procedure are in the results section. FRACTIONATED BILIRUBIN AM 02/15/2023 Resul ts for 6:24 AM CDT this procedure are in the results section. TOTAL PROTEIN AM 02/15/2023 Results for 6:24 AM CDT this procedure are in the results section. ASPARTATE AMINOTRANSFERASE AM 02/15/2023 R esults for 6:24 AM CDT this procedure are in the results section. ALANINE AMINOTRANSFERASE AM 02/15/2023 Res ults for 6:24 AM CDT this procedure are in the results section. ALKALINE PHOSPHATASE AM 02/15/2023 Results for 6:24 AM CDT this procedure are in the results section. ALBUMIN LEVEL AM 02/15/2023 Results for 6:24 AM CDT this procedure are in the results section. CALCIUM LEVEL TOTAL AM 02/15/2023 Results for 6:24 AM CDT this procedure are in the results section. .GLOMERULAR FILTRATION AM 02/15/2023 Resul ts for RATE 6:24 AM CDT this procedure are in the results section. SERUM CREATININE AM 02/15/2023 Results for 6:24 AM CDT this procedure are in the results section. ELECTROLYTE PANEL AM 02/15/2023 Results fo r 6:24 AM CDT this procedure are in the results section. BLOOD UREA NITROGEN AM 02/15/2023 Results for 6:24 AM CDT this procedure are in the results section. GLUCOSE LEVEL AM 02/15/2023 Results for 6:24 AM CDT this procedure are in the results section. COMPREHENSIVE METABOLIC AM 02/15/2023 PANEL 6:24 AM CDT COMPLETE BLOOD COUNT W/ AM 02/15/2023 DIFFERENTIAL 6:24 AM CDT PHOSPHORUS LEVEL AM 02/15/2023 Results for 6:24 AM CDT this procedure are in the results section. MAGNESIUM LEVEL AM 02/15/2023 Results for 6:24 AM CDT this procedure are in the results section. POC GLUCOSE SCREEN Routine 02/14/2023 Results f or 9:05 PM CDT this procedure are in the results section. POC GLUCOSE SCREEN Routine 02/14/2023 Results f or 5:46 PM CDT this procedure are in the results section. POC GLUCOSE SCREEN Routine 02/14/2023 Results f or 11:34 AM CDT this procedure are in the results section. POC GLUCOSE SCREEN Routine 02/14/2023 Results f or 8:58 AM CDT this procedure are in the results section. MANUAL DIFFERENTIAL AM 02/14/2023 Results for 6:24 AM CDT this procedure are in the results section. Results CBC AM 02/14/2023 Results for 6:24 AM CDT this procedure are in the results section. FRACTIONATED BILIRUBIN AM 02/14/2023 Resul ts for 6:24 AM CDT this procedure are in the results section. TOTAL PROTEIN AM 02/14/2023 Results for 6:24 AM CDT this procedure are in the results section. ASPARTATE AMINOTRANSFERASE AM 02/14/2023 R esults for 6:24 AM CDT this procedure are in the results section. ALANINE AMINOTRANSFERASE AM 02/14/2023 Res ults for 6:24 AM CDT this procedure are in the results section. ALKALINE PHOSPHATASE AM 02/14/2023 Results for 6:24 AM CDT this procedure are in the results section. ALBUMIN LEVEL AM 02/14/2023 Results for 6:24 AM CDT this procedure are in the results section. CALCIUM LEVEL TOTAL AM 02/14/2023 Results for 6:24 AM CDT this procedure are in the results section. .GLOMERULAR FILTRATION AM 02/14/2023 Resul ts for RATE 6:24 AM CDT this procedure are in the results section. SERUM CREATININE AM 02/14/2023 Results for 6:24 AM CDT this procedure are in the results section. ELECTROLYTE PANEL AM 02/14/2023 Results fo r 6:24 AM CDT this procedure are in the results section. BLOOD UREA NITROGEN AM 02/14/2023 Results for 6:24 AM CDT this procedure are in the results section. GLUCOSE LEVEL AM 02/14/2023 Results for 6:24 AM CDT this procedure are in the results section. COMPREHENSIVE METABOLIC AM 02/14/2023 PANEL 6:24 AM CDT COMPLETE BLOOD COUNT W/ AM 02/14/2023 DIFFERENTIAL 6:24 AM CDT PHOSPHORUS LEVEL AM 02/14/2023 Results for 6:24 AM CDT this procedure are in the results section. MAGNESIUM LEVEL AM 02/14/2023 Results for 6:24 AM CDT this procedure are in the results section. POC GLUCOSE SCREEN Routine 02/13/2023 Results f or 9:44 PM CDT this procedure are in the results section. POC GLUCOSE SCREEN Routine 02/13/2023 Results f or 6:32 PM CDT this procedure are in the results section. POC GLUCOSE SCREEN Routine 02/13/2023 Results f or 1:19 PM CDT this procedure are in the results section. POC GLUCOSE SCREEN Routine 02/13/2023 Results f or 7:37 AM CDT this procedure are in the results section. MANUAL DIFFERENTIAL AM 02/13/2023 Results for 6:42 AM CDT this procedure are in the results section. Results CBC AM 02/13/2023 Results for 6:42 AM CDT this procedure are in the results section. FRACTIONATED BILIRUBIN AM 02/13/2023 Resul ts for 6:42 AM CDT this procedure are in the results section. TOTAL PROTEIN AM 02/13/2023 Results for 6:42 AM CDT this procedure are in the results section. ASPARTATE AMINOTRANSFERASE AM 02/13/2023 R esults for 6:42 AM CDT this procedure are in the results section. ALANINE AMINOTRANSFERASE AM 02/13/2023 Res ults for 6:42 AM CDT this procedure are in the results section. ALKALINE PHOSPHATASE AM 02/13/2023 Results for 6:42 AM CDT this procedure are in the results section. ALBUMIN LEVEL AM 02/13/2023 Results for 6:42 AM CDT this procedure are in the results section. CALCIUM LEVEL TOTAL AM 02/13/2023 Results for 6:42 AM CDT this procedure are in the results section. .GLOMERULAR FILTRATION AM 02/13/2023 Resul ts for RATE 6:42 AM CDT this procedure are in the results section. SERUM CREATININE AM 02/13/2023 Results for 6:42 AM CDT this procedure are in the results section. ELECTROLYTE PANEL AM 02/13/2023 Results fo r 6:42 AM CDT this procedure are in the results section. BLOOD UREA NITROGEN AM 02/13/2023 Results for 6:42 AM CDT this procedure are in the results section. GLUCOSE LEVEL AM 02/13/2023 Results for 6:42 AM CDT this procedure are in the results section. COMPREHENSIVE METABOLIC AM 02/13/2023 PANEL 6:42 AM CDT COMPLETE BLOOD COUNT W/ AM 02/13/2023 DIFFERENTIAL 6:42 AM CDT PHOSPHORUS LEVEL AM 02/13/2023 Results for 6:42 AM CDT this procedure are in the results section. MAGNESIUM LEVEL AM 02/13/2023 Results for 6:42 AM CDT this procedure are in the results section. POC GLUCOSE SCREEN Routine 02/12/2023 Results f or 10:26 PM CDT this procedure are in the results section. POC GLUCOSE SCREEN Routine 02/12/2023 Results f or 7:20 PM CDT this procedure are in the results section. POC GLUCOSE SCREEN Routine 02/12/2023 Results f or 3:06 PM CDT this procedure are in the results section. POC GLUCOSE SCREEN Routine 02/12/2023 Results f or 10:18 AM CDT this procedure are in the results section. GENERAL LABORATORY ADD ON Routine 02/12/2023 Re sults for TEST 9:33 AM CDT this procedure are in the results section. POC GLUCOSE SCREEN Routine 02/12/2023 Results f or 8:55 AM CDT this procedure are in the results section. PROCALCITONIN AM 02/12/2023 Results for 5:34 AM CDT this procedure are in the results section. MANUAL DIFFERENTIAL AM 02/12/2023 Results for 5:34 AM CDT this procedure are in the results section. Results CBC AM 02/12/2023 Results for 5:34 AM CDT this procedure are in the results section. FRACTIONATED BILIRUBIN AM 02/12/2023 Resul ts for 5:34 AM CDT this procedure are in the results section. TOTAL PROTEIN AM 02/12/2023 Results for 5:34 AM CDT this procedure are in the results section. ASPARTATE AMINOTRANSFERASE AM 02/12/2023 R esults for 5:34 AM CDT this procedure are in the results section. ALANINE AMINOTRANSFERASE AM 02/12/2023 Res ults for 5:34 AM CDT this procedure are in the results section. ALKALINE PHOSPHATASE AM 02/12/2023 Results for 5:34 AM CDT this procedure are in the results section. ALBUMIN LEVEL AM 02/12/2023 Results for 5:34 AM CDT this procedure are in the results section. CALCIUM LEVEL TOTAL AM 02/12/2023 Results for 5:34 AM CDT this procedure are in the results section. .GLOMERULAR FILTRATION AM 02/12/2023 Resul ts for RATE 5:34 AM CDT this procedure are in the results section. SERUM CREATININE AM 02/12/2023 Results for 5:34 AM CDT this procedure are in the results section. ELECTROLYTE PANEL AM 02/12/2023 Results fo r 5:34 AM CDT this procedure are in the results section. BLOOD UREA NITROGEN AM 02/12/2023 Results for 5:34 AM CDT this procedure are in the results section. GLUCOSE LEVEL AM 02/12/2023 Results for 5:34 AM CDT this procedure are in the results section. COMPREHENSIVE METABOLIC AM 02/12/2023 PANEL 5:34 AM CDT COMPLETE BLOOD COUNT W/ AM 02/12/2023 DIFFERENTIAL 5:34 AM CDT PHOSPHORUS LEVEL AM 02/12/2023 Results for 5:34 AM CDT this procedure are in the results section. MAGNESIUM LEVEL AM 02/12/2023 Results for 5:34 AM CDT this procedure are in the results section. POC GLUCOSE SCREEN Routine 02/11/2023 Results f or 10:16 PM CDT this procedure are in the results section. POC GLUCOSE SCREEN Routine 02/11/2023 Results f or 7:01 PM CDT this procedure are in the results section. POC GLUCOSE SCREEN Routine 02/11/2023 Results f or 1:59 PM CDT this procedure are in the results section. POC GLUCOSE SCREEN Routine 02/11/2023 Results f or 8:46 AM CDT this procedure are in the results section. MANUAL DIFFERENTIAL AM 02/11/2023 Results for 5:42 AM CDT this procedure are in the results section. Results CBC AM 02/11/2023 Results for 5:42 AM CDT this procedure are in the results section. FRACTIONATED BILIRUBIN AM 02/11/2023 Resul ts for 5:42 AM CDT this procedure are in the results section. TOTAL PROTEIN AM 02/11/2023 Results for 5:42 AM CDT this procedure are in the results section. ASPARTATE AMINOTRANSFERASE AM 02/11/2023 R esults for 5:42 AM CDT this procedure are in the results section. ALANINE AMINOTRANSFERASE AM 02/11/2023 Res ults for 5:42 AM CDT this procedure are in the results section. ALKALINE PHOSPHATASE AM 02/11/2023 Results for 5:42 AM CDT this procedure are in the results section. ALBUMIN LEVEL AM 02/11/2023 Results for 5:42 AM CDT this procedure are in the results section. CALCIUM LEVEL TOTAL AM 02/11/2023 Results for 5:42 AM CDT this procedure are in the results section. .GLOMERULAR FILTRATION AM 02/11/2023 Resul ts for RATE 5:42 AM CDT this procedure are in the results section. SERUM CREATININE AM 02/11/2023 Results for 5:42 AM CDT this procedure are in the results section. ELECTROLYTE PANEL AM 02/11/2023 Results fo r 5:42 AM CDT this procedure are in the results section. BLOOD UREA NITROGEN AM 02/11/2023 Results for 5:42 AM CDT this procedure are in the results section. GLUCOSE LEVEL AM 02/11/2023 Results for 5:42 AM CDT this procedure are in the results section. COMPREHENSIVE METABOLIC AM 02/11/2023 PANEL 5:42 AM CDT COMPLETE BLOOD COUNT W/ AM 02/11/2023 DIFFERENTIAL 5:42 AM CDT PHOSPHORUS LEVEL AM 02/11/2023 Results for 5:42 AM CDT this procedure are in the results section. MAGNESIUM LEVEL AM 02/11/2023 Results for 5:42 AM CDT this procedure are in the results section. CT MAXILLOFACIAL AREA W Routine 02/11/2023 Resu lts for CONTRAST 4:15 AM CDT this procedure are in the results section. POC GLUCOSE SCREEN Routine 02/10/2023 Results f or 10:42 PM CDT this procedure are in the results section. POC GLUCOSE SCREEN Routine 02/10/2023 Results f or 5:17 PM CDT this procedure are in the results section. POC GLUCOSE SCREEN Routine 02/10/2023 Results f or 12:27 PM CDT this procedure are in the results section. POC GLUCOSE SCREEN Routine 02/10/2023 Results f or 8:52 AM CDT this procedure are in the results section. MANUAL DIFFERENTIAL AM 02/10/2023 Results for 5:43 AM CDT this procedure are in the results section. Results CBC AM 02/10/2023 Results for 5:43 AM CDT this procedure are in the results section. FRACTIONATED BILIRUBIN AM 02/10/2023 Resul ts for 5:43 AM CDT this procedure are in the results section. TOTAL PROTEIN AM 02/10/2023 Results for 5:43 AM CDT this procedure are in the results section. ASPARTATE AMINOTRANSFERASE AM 02/10/2023 R esults for 5:43 AM CDT this procedure are in the results section. ALANINE AMINOTRANSFERASE AM 02/10/2023 Res ults for 5:43 AM CDT this procedure are in the results section. ALKALINE PHOSPHATASE AM 02/10/2023 Results for 5:43 AM CDT this procedure are in the results section. ALBUMIN LEVEL AM 02/10/2023 Results for 5:43 AM CDT this procedure are in the results section. CALCIUM LEVEL TOTAL AM 02/10/2023 Results for 5:43 AM CDT this procedure are in the results section. .GLOMERULAR FILTRATION AM 02/10/2023 Resul ts for RATE 5:43 AM CDT this procedure are in the results section. SERUM CREATININE AM 02/10/2023 Results for 5:43 AM CDT this procedure are in the results section. ELECTROLYTE PANEL AM 02/10/2023 Results fo r 5:43 AM CDT this procedure are in the results section. BLOOD UREA NITROGEN AM 02/10/2023 Results for 5:43 AM CDT this procedure are in the results section. GLUCOSE LEVEL AM 02/10/2023 Results for 5:43 AM CDT this procedure are in the results section. COMPREHENSIVE METABOLIC AM 02/10/2023 PANEL 5:43 AM CDT COMPLETE BLOOD COUNT W/ AM 02/10/2023 DIFFERENTIAL 5:43 AM CDT PHOSPHORUS LEVEL AM 02/10/2023 Results for 5:43 AM CDT this procedure are in the results section. MAGNESIUM LEVEL AM 02/10/2023 Results for 5:43 AM CDT this procedure are in the results section. POC GLUCOSE SCREEN Routine 02/09/2023 Results f or 10:27 PM CDT this procedure are in the results section. POC GLUCOSE SCREEN Routine 02/09/2023 Results f or 5:11 PM CDT this procedure are in the results section. POC GLUCOSE SCREEN Routine 02/09/2023 Results f or 1:18 PM CDT this procedure are in the results section. POC GLUCOSE SCREEN Routine 02/09/2023 Results f or 8:12 AM CDT this procedure are in the results section. MANUAL DIFFERENTIAL AM 02/09/2023 Results for 5:37 AM CDT this procedure are in the results section. Results CBC AM 02/09/2023 Results for 5:37 AM CDT this procedure are in the results section. FRACTIONATED BILIRUBIN AM 02/09/2023 Resul ts for 5:37 AM CDT this procedure are in the results section. TOTAL PROTEIN AM 02/09/2023 Results for 5:37 AM CDT this procedure are in the results section. ASPARTATE AMINOTRANSFERASE AM 02/09/2023 R esults for 5:37 AM CDT this procedure are in the results section. ALANINE AMINOTRANSFERASE AM 02/09/2023 Res ults for 5:37 AM CDT this procedure are in the results section. ALKALINE PHOSPHATASE AM 02/09/2023 Results for 5:37 AM CDT this procedure are in the results section. ALBUMIN LEVEL AM 02/09/2023 Results for 5:37 AM CDT this procedure are in the results section. CALCIUM LEVEL TOTAL AM 02/09/2023 Results for 5:37 AM CDT this procedure are in the results section. .GLOMERULAR FILTRATION AM 02/09/2023 Resul ts for RATE 5:37 AM CDT this procedure are in the results section. SERUM CREATININE AM 02/09/2023 Results for 5:37 AM CDT this procedure are in the results section. ELECTROLYTE PANEL AM 02/09/2023 Results fo r 5:37 AM CDT this procedure are in the results section. BLOOD UREA NITROGEN AM 02/09/2023 Results for 5:37 AM CDT this procedure are in the results section. GLUCOSE LEVEL AM 02/09/2023 Results for 5:37 AM CDT this procedure are in the results section. CREATINE KINASE Routine 02/09/2023 Results for 5:37 AM CDT this procedure are in the results section. COMPREHENSIVE METABOLIC AM 02/09/2023 PANEL 5:37 AM CDT COMPLETE BLOOD COUNT W/ AM 02/09/2023 DIFFERENTIAL 5:37 AM CDT PHOSPHORUS LEVEL AM 02/09/2023 Results for 5:37 AM CDT this procedure are in the results section. MAGNESIUM LEVEL AM 02/09/2023 Results for 5:37 AM CDT this procedure are in the results section. POC GLUCOSE SCREEN Routine 02/08/2023 Results f or 10:21 PM CDT this procedure are in the results section. POC GLUCOSE SCREEN Routine 02/08/2023 Results f or 6:32 PM CDT this procedure are in the results section. US ARM VENOUS DOPPLER Routine 02/08/2023 Result s for BILATERAL 6:28 PM CDT this procedure are in the results section. ECHOCARDIOGRAM 2D COMPLETE Routine 02/08/2023 R esults for W CONTRAST 2:23 PM CDT this procedure are in the results section. POC GLUCOSE SCREEN Routine 02/08/2023 Results f or 12:21 PM CDT this procedure are in the results section. POC GLUCOSE SCREEN Routine 02/08/2023 Results f or 7:46 AM CDT this procedure are in the results section. MANUAL DIFFERENTIAL AM 02/08/2023 Results for 6:14 AM CDT this procedure are in the results section. Results CBC AM 02/08/2023 Results for 6:14 AM CDT this procedure are in the results section. FRACTIONATED BILIRUBIN AM 02/08/2023 Resul ts for 6:14 AM CDT this procedure are in the results section. TOTAL PROTEIN AM 02/08/2023 Results for 6:14 AM CDT this procedure are in the results section. ASPARTATE AMINOTRANSFERASE AM 02/08/2023 R esults for 6:14 AM CDT this procedure are in the results section. ALANINE AMINOTRANSFERASE AM 02/08/2023 Res ults for 6:14 AM CDT this procedure are in the results section. ALKALINE PHOSPHATASE AM 02/08/2023 Results for 6:14 AM CDT this procedure are in the results section. ALBUMIN LEVEL AM 02/08/2023 Results for 6:14 AM CDT this procedure are in the results section. CALCIUM LEVEL TOTAL AM 02/08/2023 Results for 6:14 AM CDT this procedure are in the results section. .GLOMERULAR FILTRATION AM 02/08/2023 Resul ts for RATE 6:14 AM CDT this procedure are in the results section. SERUM CREATININE AM 02/08/2023 Results for 6:14 AM CDT this procedure are in the results section. ELECTROLYTE PANEL AM 02/08/2023 Results fo r 6:14 AM CDT this procedure are in the results section. BLOOD UREA NITROGEN AM 02/08/2023 Results for 6:14 AM CDT this procedure are in the results section. GLUCOSE LEVEL AM 02/08/2023 Results for 6:14 AM CDT this procedure are in the results section. COMPREHENSIVE METABOLIC AM 02/08/2023 PANEL 6:14 AM CDT COMPLETE BLOOD COUNT W/ AM 02/08/2023 DIFFERENTIAL 6:14 AM CDT PHOSPHORUS LEVEL AM 02/08/2023 Results for 6:14 AM CDT this procedure are in the results section. MAGNESIUM LEVEL AM 02/08/2023 Results for 6:14 AM CDT this procedure are in the results section. POC GLUCOSE SCREEN Routine 02/07/2023 Results f or 9:47 PM CDT this procedure are in the results section. POC GLUCOSE SCREEN Routine 02/07/2023 Results f or 7:12 PM CDT this procedure are in the results section. POC GLUCOSE SCREEN Routine 02/07/2023 Results f or 5:43 PM CDT this procedure are in the results section. POC GLUCOSE SCREEN Routine 02/07/2023 Results f or 1:16 PM CDT this procedure are in the results section. POC GLUCOSE SCREEN Routine 02/07/2023 Results f or 8:48 AM CDT this procedure are in the results section. MANUAL DIFFERENTIAL AM 02/07/2023 Results for 6:52 AM CDT this procedure are in the results section. Results CBC AM 02/07/2023 Results for 6:52 AM CDT this procedure are in the results section. FRACTIONATED BILIRUBIN AM 02/07/2023 Resul ts for 6:52 AM CDT this procedure are in the results section. TOTAL PROTEIN AM 02/07/2023 Results for 6:52 AM CDT this procedure are in the results section. ASPARTATE AMINOTRANSFERASE AM 02/07/2023 R esults for 6:52 AM CDT this procedure are in the results section. ALANINE AMINOTRANSFERASE AM 02/07/2023 Res ults for 6:52 AM CDT this procedure are in the results section. ALKALINE PHOSPHATASE AM 02/07/2023 Results for 6:52 AM CDT this procedure are in the results section. ALBUMIN LEVEL AM 02/07/2023 Results for 6:52 AM CDT this procedure are in the results section. CALCIUM LEVEL TOTAL AM 02/07/2023 Results for 6:52 AM CDT this procedure are in the results section. .GLOMERULAR FILTRATION AM 02/07/2023 Resul ts for RATE 6:52 AM CDT this procedure are in the results section. SERUM CREATININE AM 02/07/2023 Results for 6:52 AM CDT this procedure are in the results section. ELECTROLYTE PANEL AM 02/07/2023 Results fo r 6:52 AM CDT this procedure are in the results section. BLOOD UREA NITROGEN AM 02/07/2023 Results for 6:52 AM CDT this procedure are in the results section. GLUCOSE LEVEL AM 02/07/2023 Results for 6:52 AM CDT this procedure are in the results section. HEMOGLOBIN A1C AM 02/07/2023 Results for 6:52 AM CDT this procedure are in the results section. LIPID PANEL AM 02/07/2023 Results for 6:52 AM CDT this procedure are in the results section. COMPREHENSIVE METABOLIC AM 02/07/2023 PANEL 6:52 AM CDT COMPLETE BLOOD COUNT W/ AM 02/07/2023 DIFFERENTIAL 6:52 AM CDT PHOSPHORUS LEVEL AM 02/07/2023 Results for 6:52 AM CDT this procedure are in the results section. MAGNESIUM LEVEL AM 02/07/2023 Results for 6:52 AM CDT this procedure are in the results section. IRON LEVEL Routine 02/07/2023 Results for 6:52 AM CDT this procedure are in the results section. TRANSFERRIN Routine 02/07/2023 Results for 6:52 AM CDT this procedure are in the results section. FERRITIN LVL Routine 02/07/2023 Results for 6:52 AM CDT this procedure are in the results section. HEPATITIS C VIRUS ANTIBODY Routine 02/07/2023 R esults for 6:52 AM CDT this procedure are in the results section. HEPATITIS B CORE ANTIBODY Routine 02/07/2023 Re sults for 6:52 AM CDT this procedure are in the results section. HEPATITIS B SURFACE Routine 02/07/2023 Results for ANTIGEN, SERUM 6:52 AM CDT this procedur e are in the results section. HIV-1/2 ANTIGEN AND Routine 02/07/2023 Results for ANTIBODIES, FOURTH 6:52 AM CDT this proc edure GENERATION are in the results section. BLOODCULTURE Routine 02/07/2023 Results for 6:52 AM CDT this procedure are in the results section. C DIFFICILE DNA ASSAY PATH Routine 02/07/2023 R esults for REVIEW 5:18 AM CDT this procedure are in the results section. C DIFFICILE DNA ASSAY Routine 02/07/2023 Result s for 5:18 AM CDT this procedure are in the results section. GASTROINTESTINAL MULTIPLEX Routine 02/07/2023 R esults for PANEL PATH REVIEW 5:16 AM CDT this proce dure are in the results section. GASTROINTESTINAL MULTIPLEX Routine 02/07/2023 R esults for PANEL 5:16 AM CDT this procedure are in the results section. EKG, 12-LEAD (PORTABLE) STAT 02/07/2023 POC GLUCOSE SCREEN Routine 02/06/2023 Results f or 10:51 PM CDT this procedure are in the results section. POC GLUCOSE SCREEN Routine 02/06/2023 Results f or 7:28 PM CDT this procedure are in the results section. POC GLUCOSE SCREEN Routine 02/06/2023 Results f or 5:13 PM CDT this procedure are in the results section. POC GLUCOSE SCREEN Routine 02/06/2023 Results f or 2:18 PM CDT this procedure are in the results section. POC GLUCOSE SCREEN Routine 02/06/2023 Results f or 1:26 PM CDT this procedure are in the results section. GENERAL LABORATORY ADD ON Routine 02/06/2023 Re sults for TEST 11:44 AM CDT this procedure are in the results section. BLOODCULTURE STAT 02/06/2023 Results for 11:11 AM CDT this procedure are in the results section. BLOODCULTURE STAT 02/06/2023 Results for 11:11 AM CDT this procedure are in the results section. POC GLUCOSE SCREEN Routine 02/06/2023 Results f or 9:46 AM CDT this procedure are in the results section. POC GLUCOSE SCREEN Routine 02/06/2023 Results f or 7:40 AM CDT this procedure are in the results section. POC GLUCOSE SCREEN Routine 02/06/2023 Results f or 3:20 AM CDT this procedure are in the results section. C REACTIVE PROTEIN AM 02/06/2023 Results f or 3:05 AM CDT this procedure are in the results section. PROCALCITONIN AM 02/06/2023 Results for 3:05 AM CDT this procedure are in the results section. NT PRO BNP AM 02/06/2023 Results for 3:05 AM CDT this procedure are in the results section. MANUAL DIFFERENTIAL AM 02/06/2023 Results for 3:05 AM CDT this procedure are in the results section. Results CBC STAT 02/06/2023 Results for 3:05 AM CDT this procedure are in the results section. CALCIUM LEVEL TOTAL AM 02/06/2023 Results for 3:05 AM CDT this procedure are in the results section. .GLOMERULAR FILTRATION AM 02/06/2023 Resul ts for RATE 3:05 AM CDT this procedure are in the results section. SERUM CREATININE AM 02/06/2023 Results for 3:05 AM CDT this procedure are in the results section. ELECTROLYTE PANEL AM 02/06/2023 Results fo r 3:05 AM CDT this procedure are in the results section. BLOOD UREA NITROGEN AM 02/06/2023 Results for 3:05 AM CDT this procedure are in the results section. GLUCOSE LEVEL AM 02/06/2023 Results for 3:05 AM CDT this procedure are in the results section. COMPLETE BLOOD COUNT W/ AM 02/06/2023 DIFFERENTIAL 3:05 AM CDT PHOSPHORUS LEVEL AM 02/06/2023 Results for 3:05 AM CDT this procedure are in the results section. MAGNESIUM LEVEL AM 02/06/2023 Results for 3:05 AM CDT this procedure are in the results section. BASIC METABOLIC PANEL, AM 02/06/2023 CALCIUM TOTAL 3:05 AM CDT POC GLUCOSE SCREEN Routine 02/06/2023 Results f or 1:17 AM CDT this procedure are in the results section. TROPONIN T Routine 02/06/2023 Results for 1:09 AM CDT this procedure are in the results section. URINE CULTURE Routine 02/06/2023 Results for 12:40 AM CDT this procedure are in the results section. LACTIC ACID, VENOUS Routine 02/05/2023 Results for 8:26 PM CDT this procedure are in the results section. D DIMER STAT 02/05/2023 Results for 8:26 PM CDT this procedure are in the results section. APTT STAT 02/05/2023 Results for 8:26 PM CDT this procedure are in the results section. PROTHROMBIN TIME STAT 02/05/2023 Results for 8:26 PM CDT this procedure are in the results section. XR ABDOMEN AP Routine 02/05/2023 Results for 6:59 PM CDT this procedure are in the results section. XR CHEST 1 VW Routine 02/05/2023 Results for 6:57 PM CDT this procedure are in the results section. COVID-19 (SARS-COV-2) Routine 02/05/2023 Result s for ASYMPTOMATIC-LT 5:09 PM CDT this procedu re are in the results section. POC GLUCOSE SCREEN Routine 02/05/2023 Results f or 4:27 PM CDT this procedure are in the results section. BLOODCULTURE Routine 02/05/2023 Results for 3:39 PM CDT this procedure are in the results section. FRACTIONATED BILIRUBIN Routine 02/05/2023 Resul ts for 3:30 PM CDT this procedure are in the results section. TOTAL PROTEIN Routine 02/05/2023 Results for 3:30 PM CDT this procedure are in the results section. ASPARTATE AMINOTRANSFERASE Routine 02/05/2023 R esults for 3:30 PM CDT this procedure are in the results section. ALANINE AMINOTRANSFERASE Routine 02/05/2023 Res ults for 3:30 PM CDT this procedure are in the results section. ALKALINE PHOSPHATASE Routine 02/05/2023 Results for 3:30 PM CDT this procedure are in the results section. ALBUMIN LEVEL Routine 02/05/2023 Results for 3:30 PM CDT this procedure are in the results section. CALCIUM LEVEL TOTAL Routine 02/05/2023 Results for 3:30 PM CDT this procedure are in the results section. .GLOMERULAR FILTRATION Routine 02/05/2023 Resul ts for RATE 3:30 PM CDT this procedure are in the results section. SERUM CREATININE Routine 02/05/2023 Results for 3:30 PM CDT this procedure are in the results section. ELECTROLYTE PANEL Routine 02/05/2023 Results fo r 3:30 PM CDT this procedure are in the results section. BLOOD UREA NITROGEN Routine 02/05/2023 Results for 3:30 PM CDT this procedure are in the results section. GLUCOSE LEVEL Routine 02/05/2023 Results for 3:30 PM CDT this procedure are in the results section. MANUAL DIFFERENTIAL STAT 02/05/2023 Results for 3:30 PM CDT this procedure are in the results section. Results CBC STAT 02/05/2023 Results for 3:30 PM CDT this procedure are in the results section. LIPASE LEVEL Routine 02/05/2023 Results for 3:30 PM CDT this procedure are in the results section. AMYLASE LEVEL Routine 02/05/2023 Results for 3:30 PM CDT this procedure are in the results section. PROCALCITONIN Routine 02/05/2023 Results for 3:30 PM CDT this procedure are in the results section. COMPREHENSIVE METABOLIC Routine 02/05/2023 PANEL 3:30 PM CDT C REACTIVE PROTEIN Routine 02/05/2023 Results f or 3:30 PM CDT this procedure are in the results section. CKMB Routine 02/05/2023 Results for 3:30 PM CDT this procedure are in the results section. CREATINE KINASE Routine 02/05/2023 Results for 3:30 PM CDT this procedure are in the results section. TROPONIN T Routine 02/05/2023 Results for 3:30 PM CDT this procedure are in the results section. NT PRO BNP Routine 02/05/2023 Results for 3:30 PM CDT this procedure are in the results section. PHOSPHORUS LEVEL Routine 02/05/2023 Results for 3:30 PM CDT this procedure are in the results section. MAGNESIUM LEVEL Routine 02/05/2023 Results for 3:30 PM CDT this procedure are in the results section. COMPLETE BLOOD COUNT W/ Routine 02/05/2023 DIFFERENTIAL 3:30 PM CDT BLOODCULTURE Routine 02/05/2023 Results for 3:30 PM CDT this procedure are in the results section. URINALYSIS MICROSCOPIC STAT 02/05/2023 Resul ts for 12:39 AM CDT this procedure are in the results section. 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 Results CBC Routine 02/04/2023 Adenoid cystic Results for 12:33 PM CDT carcinoma of this procedure nasopharynx, NOS are in the results section. FRACTIONATED BILIRUBIN Routine 02/04/2023 Adenoid cystic Res ults for 12:33 PM CDT carcinoma of this procedure nasopharynx, NOS are in the results section. TOTAL PROTEIN Routine 02/04/2023 Adenoid cystic Results for 12:33 PM CDT carcinoma of this procedure nasopharynx, NOS are in the results section. 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 ALANINE AMINOTRANSFERASE Routine 02/04/2023 Adenoid cystic R esults for 12:33 PM CDT carcinoma of this procedure nasopharynx, NOS are in the results section. ALKALINE PHOSPHATASE Routine 02/04/2023 Adenoid cystic Resul ts for 12:33 PM CDT carcinoma of this procedure nasopharynx, NOS are in the results section. ALBUMIN LEVEL Routine 02/04/2023 Adenoid cystic Results for 12:33 PM CDT carcinoma of this procedure nasopharynx, NOS are in the results section. 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 .GLOMERULAR FILTRATION Routine 02/04/2023 Adenoid cystic Res ults for RATE 12:33 PM CDT carcinoma of this procedure nasopharynx, NOS are in the results section. SERUM CREATININE Routine 02/04/2023 Adenoid cystic Results f or 12:33 PM CDT carcinoma of this procedure nasopharynx, NOS are in the results section. ELECTROLYTE PANEL Routine 02/04/2023 Adenoid cystic Results for 12:33 PM CDT carcinoma of this procedure nasopharynx, NOS are in the results section. BLOOD UREA NITROGEN Routine 02/04/2023 Adenoid cystic Result s for 12:33 PM CDT carcinoma of this procedure nasopharynx, NOS are in the results section. GLUCOSE LEVEL Routine 02/04/2023 Adenoid cystic Results for 12:33 PM CDT carcinoma of this procedure nasopharynx, NOS are in the results section. PHOSPHORUS LEVEL Routine 02/04/2023 Adenoid cystic Results f or 12:33 PM CDT carcinoma of this procedure nasopharynx, NOS are in the results section. MAGNESIUM LEVEL Routine 02/04/2023 Adenoid cystic Results fo r 12:33 PM CDT carcinoma of this procedure nasopharynx, NOS are in the results section. COMPLETE BLOOD COUNT W/ Routine 02/04/2023 Adenoid cystic DIFFERENTIAL 12:33 PM CDT carcinoma of nasopharynx, NOS COMPREHENSIVE METABOLIC Routine 02/04/2023 Adenoid cystic PANEL 12:33 PM CDT carcinoma of nasopharynx, NOS POC GLUCOSE SCREEN Routine 02/01/2023 Results f or 1:19 PM CDT this procedure are in the results section. POC GLUCOSE SCREEN Routine 02/01/2023 Results f or 7:47 AM CDT this procedure are in the results section. MANUAL DIFFERENTIAL AM 02/01/2023 Results for 4:00 AM CDT this procedure are in the results section. Results CBC AM 02/01/2023 Results for 4:00 AM CDT this procedure are in the results section. CALCIUM LEVEL TOTAL AM 02/01/2023 Results for 4:00 AM CDT this procedure are in the results section. .GLOMERULAR FILTRATION AM 02/01/2023 Resul ts for RATE 4:00 AM CDT this procedure are in the results section. SERUM CREATININE AM 02/01/2023 Results for 4:00 AM CDT this procedure are in the results section. ELECTROLYTE PANEL AM 02/01/2023 Results fo r 4:00 AM CDT this procedure are in the results section. BLOOD UREA NITROGEN AM 02/01/2023 Results for 4:00 AM CDT this procedure are in the results section. GLUCOSE LEVEL AM 02/01/2023 Results for 4:00 AM CDT this procedure are in the results section. COMPLETE BLOOD COUNT W/ AM 02/01/2023 DIFFERENTIAL 4:00 AM CDT PHOSPHORUS LEVEL AM 02/01/2023 Results for 4:00 AM CDT this procedure are in the results section. MAGNESIUM LEVEL AM 02/01/2023 Results for 4:00 AM CDT this procedure are in the results section. BASIC METABOLIC PANEL, AM 02/01/2023 CALCIUM TOTAL 4:00 AM CDT POC GLUCOSE SCREEN Routine 01/31/2023 Results f or 9:36 PM CDT this procedure are in the results section. POC GLUCOSE SCREEN Routine 01/31/2023 Results f or 4:55 PM CDT this procedure are in the results section. POC GLUCOSE SCREEN Routine 01/31/2023 Results f or 12:13 PM CDT this procedure are in the results section. POC GLUCOSE SCREEN Routine 01/31/2023 Results f or 8:08 AM CDT this procedure are in the results section. MANUAL DIFFERENTIAL AM 01/31/2023 Results for 3:15 AM CDT this procedure are in the results section. Results CBC AM 01/31/2023 Results for 3:15 AM CDT this procedure are in the results section. CALCIUM LEVEL TOTAL AM 01/31/2023 Results for 3:15 AM CDT this procedure are in the results section. .GLOMERULAR FILTRATION AM 01/31/2023 Resul ts for RATE 3:15 AM CDT this procedure are in the results section. SERUM CREATININE AM 01/31/2023 Results for 3:15 AM CDT this procedure are in the results section. ELECTROLYTE PANEL AM 01/31/2023 Results fo r 3:15 AM CDT this procedure are in the results section. BLOOD UREA NITROGEN AM 01/31/2023 Results for 3:15 AM CDT this procedure are in the results section. GLUCOSE LEVEL AM 01/31/2023 Results for 3:15 AM CDT this procedure are in the results section. COMPLETE BLOOD COUNT W/ AM 01/31/2023 DIFFERENTIAL 3:15 AM CDT PHOSPHORUS LEVEL AM 01/31/2023 Results for 3:15 AM CDT this procedure are in the results section. MAGNESIUM LEVEL AM 01/31/2023 Results for 3:15 AM CDT this procedure are in the results section. BASIC METABOLIC PANEL, AM 01/31/2023 CALCIUM TOTAL 3:15 AM CDT POC GLUCOSE SCREEN Routine 01/30/2023 Results f or 9:23 PM CDT this procedure are in the results section. POC GLUCOSE SCREEN Routine 01/30/2023 Results f or 5:38 PM CDT this procedure are in the results section. POC GLUCOSE SCREEN Routine 01/30/2023 Results f or 12:51 PM CDT this procedure are in the results section. POC GLUCOSE SCREEN Routine 01/30/2023 Results f or 9:45 AM CDT this procedure are in the results section. MANUAL DIFFERENTIAL AM 01/30/2023 Results for 3:14 AM CDT this procedure are in the results section. Results CBC AM 01/30/2023 Results for 3:14 AM CDT this procedure are in the results section. CALCIUM LEVEL TOTAL AM 01/30/2023 Results for 3:14 AM CDT this procedure are in the results section. .GLOMERULAR FILTRATION AM 01/30/2023 Resul ts for RATE 3:14 AM CDT this procedure are in the results section. SERUM CREATININE AM 01/30/2023 Results for 3:14 AM CDT this procedure are in the results section. ELECTROLYTE PANEL AM 01/30/2023 Results fo r 3:14 AM CDT this procedure are in the results section. BLOOD UREA NITROGEN AM 01/30/2023 Results for 3:14 AM CDT this procedure are in the results section. GLUCOSE LEVEL AM 01/30/2023 Results for 3:14 AM CDT this procedure are in the results section. COMPLETE BLOOD COUNT W/ AM 01/30/2023 DIFFERENTIAL 3:14 AM CDT PHOSPHORUS LEVEL AM 01/30/2023 Results for 3:14 AM CDT this procedure are in the results section. MAGNESIUM LEVEL AM 01/30/2023 Results for 3:14 AM CDT this procedure are in the results section. BASIC METABOLIC PANEL, AM 01/30/2023 CALCIUM TOTAL 3:14 AM CDT POC GLUCOSE SCREEN Routine 01/29/2023 Results f or 9:40 PM CDT this procedure are in the results section. POC GLUCOSE SCREEN Routine 01/29/2023 Results f or 7:24 PM CDT this procedure are in the results section. POC GLUCOSE SCREEN Routine 01/29/2023 Results f or 5:51 PM CDT this procedure are in the results section. VERIFY CATHETER TIP Routine 01/29/2023 Encounter for Results for PLACEMENT 3:08 PM CDT adjustment and this procedur e management of are in the vascular access results device section. XR CHEST 1 VW POST IMPLANT STAT 01/29/2023 R esults for 2:59 PM CDT this procedure are in the results section. INSERT VASCULAR ACCESS Routine 01/29/2023 Encounter for Resu lts for DEVICE 2:04 PM CDT adjustment and this procedur e management of are in the vascular access results device section. POC GLUCOSE SCREEN Routine 01/29/2023 Results f or 2:04 PM CDT this procedure are in the results section. POC GLUCOSE SCREEN Routine 01/29/2023 Results f or 8:50 AM CDT this procedure are in the results section. MANUAL DIFFERENTIAL AM 01/29/2023 Results for 3:33 AM CDT this procedure are in the results section. Results CBC AM 01/29/2023 Results for 3:33 AM CDT this procedure are in the results section. CALCIUM LEVEL TOTAL AM 01/29/2023 Results for 3:33 AM CDT this procedure are in the results section. .GLOMERULAR FILTRATION AM 01/29/2023 Resul ts for RATE 3:33 AM CDT this procedure are in the results section. SERUM CREATININE AM 01/29/2023 Results for 3:33 AM CDT this procedure are in the results section. ELECTROLYTE PANEL AM 01/29/2023 Results fo r 3:33 AM CDT this procedure are in the results section. BLOOD UREA NITROGEN AM 01/29/2023 Results for 3:33 AM CDT this procedure are in the results section. GLUCOSE LEVEL AM 01/29/2023 Results for 3:33 AM CDT this procedure are in the results section. COMPLETE BLOOD COUNT W/ AM 01/29/2023 DIFFERENTIAL 3:33 AM CDT PHOSPHORUS LEVEL AM 01/29/2023 Results for 3:33 AM CDT this procedure are in the results section. MAGNESIUM LEVEL AM 01/29/2023 Results for 3:33 AM CDT this procedure are in the results section. BASIC METABOLIC PANEL, AM 01/29/2023 CALCIUM TOTAL 3:33 AM CDT POC GLUCOSE SCREEN Routine 01/28/2023 Results f or 10:21 PM CDT this procedure are in the results section. POC GLUCOSE SCREEN Routine 01/28/2023 Results f or 6:27 PM CDT this procedure are in the results section. POC GLUCOSE SCREEN Routine 01/28/2023 Results f or 12:57 PM CDT this procedure are in the results section. POC GLUCOSE SCREEN Routine 01/28/2023 Results f or 10:38 AM CDT this procedure are in the results section. HEMATOCRIT Routine 01/28/2023 Results for 8:24 AM CDT this procedure are in the results section. HEMOGLOBIN Routine 01/28/2023 Results for 8:24 AM CDT this procedure are in the results section. POC GLUCOSE SCREEN Routine 01/28/2023 Results f or 8:17 AM CDT this procedure are in the results section. MANUAL DIFFERENTIAL AM 01/28/2023 Results for 3:00 AM CDT this procedure are in the results section. Results CBC AM 01/28/2023 Results for 3:00 AM CDT this procedure are in the results section. CALCIUM LEVEL TOTAL AM 01/28/2023 Results for 3:00 AM CDT this procedure are in the results section. .GLOMERULAR FILTRATION AM 01/28/2023 Resul ts for RATE 3:00 AM CDT this procedure are in the results section. SERUM CREATININE AM 01/28/2023 Results for 3:00 AM CDT this procedure are in the results section. ELECTROLYTE PANEL AM 01/28/2023 Results fo r 3:00 AM CDT this procedure are in the results section. BLOOD UREA NITROGEN AM 01/28/2023 Results for 3:00 AM CDT this procedure are in the results section. GLUCOSE LEVEL AM 01/28/2023 Results for 3:00 AM CDT this procedure are in the results section. COMPLETE BLOOD COUNT W/ AM 01/28/2023 DIFFERENTIAL 3:00 AM CDT PHOSPHORUS LEVEL AM 01/28/2023 Results for 3:00 AM CDT this procedure are in the results section. MAGNESIUM LEVEL AM 01/28/2023 Results for 3:00 AM CDT this procedure are in the results section. BASIC METABOLIC PANEL, AM 01/28/2023 CALCIUM TOTAL 3:00 AM CDT HEMATOCRIT Routine 01/28/2023 Results for 3:00 AM CDT this procedure are in the results section. HEMOGLOBIN Routine 01/28/2023 Results for 3:00 AM CDT this procedure are in the results section. POC GLUCOSE SCREEN Routine 01/27/2023 Results f or 10:34 PM CDT this procedure are in the results section. POC GLUCOSE SCREEN Routine 01/27/2023 Results f or 7:42 PM CDT this procedure are in the results section. HEMATOCRIT Routine 01/27/2023 Results for 4:15 PM CDT this procedure are in the results section. HEMOGLOBIN Routine 01/27/2023 Results for 4:15 PM CDT this procedure are in the results section. POC GLUCOSE SCREEN Routine 01/27/2023 Results f or 2:38 PM CDT this procedure are in the results section. POC GLUCOSE SCREEN Routine 01/27/2023 Results f or 11:11 AM CDT this procedure are in the results section. POC GLUCOSE SCREEN Routine 01/27/2023 Results f or 8:43 AM CDT this procedure are in the results section. MANUAL DIFFERENTIAL AM 01/27/2023 Results for 2:48 AM CDT this procedure are in the results section. Results CBC AM 01/27/2023 Results for 2:48 AM CDT this procedure are in the results section. CALCIUM LEVEL TOTAL AM 01/27/2023 Results for 2:48 AM CDT this procedure are in the results section. .GLOMERULAR FILTRATION AM 01/27/2023 Resul ts for RATE 2:48 AM CDT this procedure are in the results section. SERUM CREATININE AM 01/27/2023 Results for 2:48 AM CDT this procedure are in the results section. ELECTROLYTE PANEL AM 01/27/2023 Results fo r 2:48 AM CDT this procedure are in the results section. BLOOD UREA NITROGEN AM 01/27/2023 Results for 2:48 AM CDT this procedure are in the results section. GLUCOSE LEVEL AM 01/27/2023 Results for 2:48 AM CDT this procedure are in the results section. COMPLETE BLOOD COUNT W/ AM 01/27/2023 DIFFERENTIAL 2:48 AM CDT PHOSPHORUS LEVEL AM 01/27/2023 Results for 2:48 AM CDT this procedure are in the results section. MAGNESIUM LEVEL AM 01/27/2023 Results for 2:48 AM CDT this procedure are in the results section. BASIC METABOLIC PANEL, AM 01/27/2023 CALCIUM TOTAL 2:48 AM CDT POC GLUCOSE SCREEN Routine 01/26/2023 Results f or 11:16 PM CDT this procedure are in the results section. URINALYSIS MICROSCOPIC Routine 01/26/2023 Resul ts for EXAM 10:45 PM CDT this procedure are in the results section. URINALYSIS WITH Routine 01/26/2023 Results for MICROSCOPIC IF INDICATED 10:45 PM CDT thi s procedure are in the results section. URINE CULTURE Routine 01/26/2023 Results for 10:45 PM CDT this procedure are in the results section. POC GLUCOSE SCREEN Routine 01/26/2023 Results f or 7:34 PM CDT this procedure are in the results section. POC GLUCOSE SCREEN Routine 01/26/2023 Results f or 5:30 PM CDT this procedure are in the results section. COVID-19 (SARS-COV-2) Routine 01/26/2023 Result s for ASYMPTOMATIC-LT 4:34 PM CDT this procedu re are in the results section. TOTAL PROTEIN Routine 01/26/2023 Results for 2:44 PM CDT this procedure are in the results section. ASPARTATE AMINOTRANSFERASE Routine 01/26/2023 R esults for 2:44 PM CDT this procedure are in the results section. ALANINE AMINOTRANSFERASE Routine 01/26/2023 Res ults for 2:44 PM CDT this procedure are in the results section. ALKALINE PHOSPHATASE Routine 01/26/2023 Results for 2:44 PM CDT this procedure are in the results section. ALBUMIN LEVEL Routine 01/26/2023 Results for 2:44 PM CDT this procedure are in the results section. CALCIUM LEVEL TOTAL Routine 01/26/2023 Results for 2:44 PM CDT this procedure are in the results section. .GLOMERULAR FILTRATION Routine 01/26/2023 Resul ts for RATE 2:44 PM CDT this procedure are in the results section. SERUM CREATININE Routine 01/26/2023 Results for 2:44 PM CDT this procedure are in the results section. ELECTROLYTE PANEL Routine 01/26/2023 Results fo r 2:44 PM CDT this procedure are in the results section. BLOOD UREA NITROGEN Routine 01/26/2023 Results for 2:44 PM CDT this procedure are in the results section. GLUCOSE LEVEL Routine 01/26/2023 Results for 2:44 PM CDT this procedure are in the results section. MANUAL DIFFERENTIAL STAT 01/26/2023 Results for 2:44 PM CDT this procedure are in the results section. Results CBC STAT 01/26/2023 Results for 2:44 PM CDT this procedure are in the results section. PROCALCITONIN Routine 01/26/2023 Results for 2:44 PM CDT this procedure are in the results section. COMPREHENSIVE METABOLIC Routine 01/26/2023 PANEL 2:44 PM CDT C REACTIVE PROTEIN Routine 01/26/2023 Results f or 2:44 PM CDT this procedure are in the results section. LACTATE DEHYDROGENASE Routine 01/26/2023 Result s for 2:44 PM CDT this procedure are in the results section. LIPASE LEVEL Routine 01/26/2023 Results for 2:44 PM CDT this procedure are in the results section. AMYLASE LEVEL Routine 01/26/2023 Results for 2:44 PM CDT this procedure are in the results section. FRACTIONATED BILIRUBIN Routine 01/26/2023 Resul ts for 2:44 PM CDT this procedure are in the results section. PHOSPHORUS LEVEL Routine 01/26/2023 Results for 2:44 PM CDT this procedure are in the results section. MAGNESIUM LEVEL Routine 01/26/2023 Results for 2:44 PM CDT this procedure are in the results section. COMPLETE BLOOD COUNT W/ Routine 01/26/2023 DIFFERENTIAL 2:44 PM CDT BLOODCULTURE Routine 01/26/2023 Results for 2:44 PM CDT this procedure are in the results section. MANUAL DIFFERENTIAL Routine 01/20/2023 Adenoid cystic Result s for 12:53 PM CDT carcinoma of this procedure nasopharynx, NOS are in the results section. Results CBC Routine 01/20/2023 Adenoid cystic Results for 12:53 PM CDT carcinoma of this procedure nasopharynx, NOS are in the results section. FRACTIONATED BILIRUBIN Routine 01/20/2023 Adenoid cystic Res ults for 12:53 PM CDT carcinoma of this procedure nasopharynx, NOS are in the results section. TOTAL PROTEIN Routine 01/20/2023 Adenoid cystic Results for 12:53 PM CDT carcinoma of this procedure nasopharynx, NOS are in the results section. ASPARTATE AMINOTRANSFERASE Routine 01/20/2023 Adenoid cystic Results for 12:53 PM CDT carcinoma of this procedure nasopharynx, NOS are in the results section. ALANINE AMINOTRANSFERASE Routine 01/20/2023 Adenoid cystic R esults for 12:53 PM CDT carcinoma of this procedure nasopharynx, NOS are in the results section. ALKALINE PHOSPHATASE Routine 01/20/2023 Adenoid cystic Resul ts for 12:53 PM CDT carcinoma of this procedure nasopharynx, NOS are in the results section. ALBUMIN LEVEL Routine 01/20/2023 Adenoid cystic Results for 12:53 PM CDT carcinoma of this procedure nasopharynx, NOS are in the results section. CALCIUM LEVEL TOTAL Routine 01/20/2023 Adenoid cystic Result s for 12:53 PM CDT carcinoma of this procedure nasopharynx, NOS are in the results section. .GLOMERULAR FILTRATION Routine 01/20/2023 Adenoid cystic Res ults for RATE 12:53 PM CDT carcinoma of this procedure nasopharynx, NOS are in the results section. SERUM CREATININE Routine 01/20/2023 Adenoid cystic Results f or 12:53 PM CDT carcinoma of this procedure nasopharynx, NOS are in the results section. ELECTROLYTE PANEL Routine 01/20/2023 Adenoid cystic Results for 12:53 PM CDT carcinoma of this procedure nasopharynx, NOS are in the results section. BLOOD UREA NITROGEN Routine 01/20/2023 Adenoid cystic Result s for 12:53 PM CDT carcinoma of this procedure nasopharynx, NOS are in the results section. GLUCOSE LEVEL Routine 01/20/2023 Adenoid cystic Results for 12:53 PM CDT carcinoma of this procedure nasopharynx, NOS are in the results section. PHOSPHORUS LEVEL Routine 01/20/2023 Adenoid cystic Results f or 12:53 PM CDT carcinoma of this procedure nasopharynx, NOS are in the results section. MAGNESIUM LEVEL Routine 01/20/2023 Adenoid cystic Results fo r 12:53 PM CDT carcinoma of this procedure nasopharynx, NOS are in the results section. COMPLETE BLOOD COUNT W/ Routine 01/20/2023 Adenoid cystic DIFFERENTIAL 12:53 PM CDT carcinoma of nasopharynx, NOS COMPREHENSIVE METABOLIC Routine 01/20/2023 Adenoid cystic PANEL 12:53 PM CDT carcinoma of nasopharynx, NOS POC URINE DRUG SCREEN Routine 01/20/2023 Result s for PANEL, QUALITATIVE 12:37 PM CDT this proc edure are in the results section. TETRAHYDROCANNABINOL Routine 01/20/2023 Results for CONFIRMATION, UR 12:37 PM CDT this proced ure are in the results section. 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 POC GLUCOSE SCREEN Routine 01/18/2023 Results f or 1:10 PM CDT this procedure are in the results section. POC GLUCOSE SCREEN Routine 01/18/2023 Results f or 7:46 AM CDT this procedure are in the results section. MANUAL DIFFERENTIAL AM 01/18/2023 Results for 4:03 AM CDT this procedure are in the results section. Results CBC AM 01/18/2023 Results for 4:03 AM CDT this procedure are in the results section. CALCIUM LEVEL TOTAL AM 01/18/2023 Results for 4:03 AM CDT this procedure are in the results section. .GLOMERULAR FILTRATION AM 01/18/2023 Resul ts for RATE 4:03 AM CDT this procedure are in the results section. SERUM CREATININE AM 01/18/2023 Results for 4:03 AM CDT this procedure are in the results section. ELECTROLYTE PANEL AM 01/18/2023 Results fo r 4:03 AM CDT this procedure are in the results section. BLOOD UREA NITROGEN AM 01/18/2023 Results for 4:03 AM CDT this procedure are in the results section. GLUCOSE LEVEL AM 01/18/2023 Results for 4:03 AM CDT this procedure are in the results section. COMPLETE BLOOD COUNT W/ AM 01/18/2023 DIFFERENTIAL 4:03 AM CDT PHOSPHORUS LEVEL AM 01/18/2023 Results for 4:03 AM CDT this procedure are in the results section. MAGNESIUM LEVEL AM 01/18/2023 Results for 4:03 AM CDT this procedure are in the results section. BASIC METABOLIC PANEL, AM 01/18/2023 CALCIUM TOTAL 4:03 AM CDT POC GLUCOSE SCREEN Routine 01/17/2023 Results f or 9:33 PM CDT this procedure are in the results section. POC GLUCOSE SCREEN Routine 01/17/2023 Results f or 6:22 PM CDT this procedure are in the results section. POC GLUCOSE SCREEN Routine 01/17/2023 Results f or 12:43 PM CDT this procedure are in the results section. POC GLUCOSE SCREEN Routine 01/17/2023 Results f or 8:58 AM CDT this procedure are in the results section. MANUAL DIFFERENTIAL AM 01/17/2023 Results for 4:31 AM CDT this procedure are in the results section. Results CBC AM 01/17/2023 Results for 4:31 AM CDT this procedure are in the results section. CALCIUM LEVEL TOTAL AM 01/17/2023 Results for 4:31 AM CDT this procedure are in the results section. .GLOMERULAR FILTRATION AM 01/17/2023 Resul ts for RATE 4:31 AM CDT this procedure are in the results section. SERUM CREATININE AM 01/17/2023 Results for 4:31 AM CDT this procedure are in the results section. ELECTROLYTE PANEL AM 01/17/2023 Results fo r 4:31 AM CDT this procedure are in the results section. BLOOD UREA NITROGEN AM 01/17/2023 Results for 4:31 AM CDT this procedure are in the results section. GLUCOSE LEVEL AM 01/17/2023 Results for 4:31 AM CDT this procedure are in the results section. COMPLETE BLOOD COUNT W/ AM 01/17/2023 DIFFERENTIAL 4:31 AM CDT PHOSPHORUS LEVEL AM 01/17/2023 Results for 4:31 AM CDT this procedure are in the results section. MAGNESIUM LEVEL AM 01/17/2023 Results for 4:31 AM CDT this procedure are in the results section. BASIC METABOLIC PANEL, AM 01/17/2023 CALCIUM TOTAL 4:31 AM CDT POC GLUCOSE SCREEN Routine 01/16/2023 Results f or 8:43 PM CDT this procedure are in the results section. POC GLUCOSE SCREEN Routine 01/16/2023 Results f or 5:16 PM CDT this procedure are in the results section. POC GLUCOSE SCREEN Routine 01/16/2023 Results f or 12:25 PM CDT this procedure are in the results section. POC GLUCOSE SCREEN Routine 01/16/2023 Results f or 9:01 AM CDT this procedure are in the results section. MANUAL DIFFERENTIAL AM 01/16/2023 Results for 6:22 AM CDT this procedure are in the results section. Results CBC AM 01/16/2023 Results for 6:22 AM CDT this procedure are in the results section. CALCIUM LEVEL TOTAL AM 01/16/2023 Results for 6:22 AM CDT this procedure are in the results section. .GLOMERULAR FILTRATION AM 01/16/2023 Resul ts for RATE 6:22 AM CDT this procedure are in the results section. SERUM CREATININE AM 01/16/2023 Results for 6:22 AM CDT this procedure are in the results section. ELECTROLYTE PANEL AM 01/16/2023 Results fo r 6:22 AM CDT this procedure are in the results section. BLOOD UREA NITROGEN AM 01/16/2023 Results for 6:22 AM CDT this procedure are in the results section. GLUCOSE LEVEL AM 01/16/2023 Results for 6:22 AM CDT this procedure are in the results section. COMPLETE BLOOD COUNT W/ AM 01/16/2023 DIFFERENTIAL 6:22 AM CDT PHOSPHORUS LEVEL AM 01/16/2023 Results for 6:22 AM CDT this procedure are in the results section. MAGNESIUM LEVEL AM 01/16/2023 Results for 6:22 AM CDT this procedure are in the results section. BASIC METABOLIC PANEL, AM 01/16/2023 CALCIUM TOTAL 6:22 AM CDT POC GLUCOSE SCREEN Routine 01/15/2023 Results f or 8:34 PM CDT this procedure are in the results section. POC GLUCOSE SCREEN Routine 01/15/2023 Results f or 6:29 PM CDT this procedure are in the results section. POC GLUCOSE SCREEN Routine 01/15/2023 Results f or 1:11 PM CDT this procedure are in the results section. POC GLUCOSE SCREEN Routine 01/15/2023 Results f or 8:12 AM CDT this procedure are in the results section. MANUAL DIFFERENTIAL AM 01/15/2023 Results for 2:23 AM CDT this procedure are in the results section. Results CBC AM 01/15/2023 Results for 2:23 AM CDT this procedure are in the results section. CALCIUM LEVEL TOTAL AM 01/15/2023 Results for 2:23 AM CDT this procedure are in the results section. .GLOMERULAR FILTRATION AM 01/15/2023 Resul ts for RATE 2:23 AM CDT this procedure are in the results section. SERUM CREATININE AM 01/15/2023 Results for 2:23 AM CDT this procedure are in the results section. ELECTROLYTE PANEL AM 01/15/2023 Results fo r 2:23 AM CDT this procedure are in the results section. BLOOD UREA NITROGEN AM 01/15/2023 Results for 2:23 AM CDT this procedure are in the results section. GLUCOSE LEVEL AM 01/15/2023 Results for 2:23 AM CDT this procedure are in the results section. COMPLETE BLOOD COUNT W/ AM 01/15/2023 DIFFERENTIAL 2:23 AM CDT PHOSPHORUS LEVEL AM 01/15/2023 Results for 2:23 AM CDT this procedure are in the results section. MAGNESIUM LEVEL AM 01/15/2023 Results for 2:23 AM CDT this procedure are in the results section. BASIC METABOLIC PANEL, AM 01/15/2023 CALCIUM TOTAL 2:23 AM CDT POC GLUCOSE SCREEN Routine 01/14/2023 Results f or 10:18 PM CDT this procedure are in the results section. POC GLUCOSE SCREEN Routine 01/14/2023 Results f or 7:17 PM CDT this procedure are in the results section. POC GLUCOSE SCREEN Routine 01/14/2023 Results f or 2:43 PM CDT this procedure are in the results section. POC GLUCOSE SCREEN Routine 01/14/2023 Results f or 9:54 AM CDT this procedure are in the results section. POC GLUCOSE SCREEN Routine 01/14/2023 Results f or 7:55 AM CDT this procedure are in the results section. MANUAL DIFFERENTIAL AM 01/14/2023 Results for 3:31 AM CDT this procedure are in the results section. Results CBC AM 01/14/2023 Results for 3:31 AM CDT this procedure are in the results section. CALCIUM LEVEL TOTAL AM 01/14/2023 Results for 3:31 AM CDT this procedure are in the results section. .GLOMERULAR FILTRATION AM 01/14/2023 Resul ts for RATE 3:31 AM CDT this procedure are in the results section. SERUM CREATININE AM 01/14/2023 Results for 3:31 AM CDT this procedure are in the results section. ELECTROLYTE PANEL AM 01/14/2023 Results fo r 3:31 AM CDT this procedure are in the results section. BLOOD UREA NITROGEN AM 01/14/2023 Results for 3:31 AM CDT this procedure are in the results section. GLUCOSE LEVEL AM 01/14/2023 Results for 3:31 AM CDT this procedure are in the results section. COMPLETE BLOOD COUNT W/ AM 01/14/2023 DIFFERENTIAL 3:31 AM CDT PHOSPHORUS LEVEL AM 01/14/2023 Results for 3:31 AM CDT this procedure are in the results section. MAGNESIUM LEVEL AM 01/14/2023 Results for 3:31 AM CDT this procedure are in the results section. BASIC METABOLIC PANEL, AM 01/14/2023 CALCIUM TOTAL 3:31 AM CDT POC GLUCOSE SCREEN Routine 01/13/2023 Results f or 10:05 PM CDT this procedure are in the results section. POC GLUCOSE SCREEN Routine 01/13/2023 Results f or 6:08 PM CDT this procedure are in the results section. POC GLUCOSE SCREEN Routine 01/13/2023 Results f or 1:04 PM CDT this procedure are in the results section. POC GLUCOSE SCREEN Routine 01/13/2023 Results f or 11:39 AM CDT this procedure are in the results section. POC GLUCOSE SCREEN Routine 01/13/2023 Results f or 9:36 AM CDT this procedure are in the results section. POC GLUCOSE SCREEN Routine 01/13/2023 Results f or 7:31 AM CDT this procedure are in the results section. MANUAL DIFFERENTIAL AM 01/13/2023 Results for 2:55 AM CDT this procedure are in the results section. Results CBC AM 01/13/2023 Results for 2:55 AM CDT this procedure are in the results section. CALCIUM LEVEL TOTAL AM 01/13/2023 Results for 2:55 AM CDT this procedure are in the results section. .GLOMERULAR FILTRATION AM 01/13/2023 Resul ts for RATE 2:55 AM CDT this procedure are in the results section. SERUM CREATININE AM 01/13/2023 Results for 2:55 AM CDT this procedure are in the results section. ELECTROLYTE PANEL AM 01/13/2023 Results fo r 2:55 AM CDT this procedure are in the results section. BLOOD UREA NITROGEN AM 01/13/2023 Results for 2:55 AM CDT this procedure are in the results section. GLUCOSE LEVEL AM 01/13/2023 Results for 2:55 AM CDT this procedure are in the results section. COMPLETE BLOOD COUNT W/ AM 01/13/2023 DIFFERENTIAL 2:55 AM CDT PHOSPHORUS LEVEL AM 01/13/2023 Results for 2:55 AM CDT this procedure are in the results section. MAGNESIUM LEVEL AM 01/13/2023 Results for 2:55 AM CDT this procedure are in the results section. BASIC METABOLIC PANEL, AM 01/13/2023 CALCIUM TOTAL 2:55 AM CDT POC GLUCOSE SCREEN Routine 01/12/2023 Results f or 10:31 PM CDT this procedure are in the results section. POC GLUCOSE SCREEN Routine 01/12/2023 Results f or 7:05 PM CDT this procedure are in the results section. POC GLUCOSE SCREEN Routine 01/12/2023 Results f or 1:51 PM CDT this procedure are in the results section. POC GLUCOSE SCREEN Routine 01/12/2023 Results f or 1:00 PM CDT this procedure are in the results section. POC GLUCOSE SCREEN Routine 01/12/2023 Results f or 9:16 AM CDT this procedure are in the results section. POC GLUCOSE SCREEN Routine 01/12/2023 Results f or 7:55 AM CDT this procedure are in the results section. POC GLUCOSE SCREEN Routine 01/12/2023 Results f or 5:59 AM CDT this procedure are in the results section. MANUAL DIFFERENTIAL AM 01/12/2023 Results for 3:03 AM CDT this procedure are in the results section. Results CBC AM 01/12/2023 Results for 3:03 AM CDT this procedure are in the results section. CALCIUM LEVEL TOTAL AM 01/12/2023 Results for 3:03 AM CDT this procedure are in the results section. .GLOMERULAR FILTRATION AM 01/12/2023 Resul ts for RATE 3:03 AM CDT this procedure are in the results section. SERUM CREATININE AM 01/12/2023 Results for 3:03 AM CDT this procedure are in the results section. ELECTROLYTE PANEL AM 01/12/2023 Results fo r 3:03 AM CDT this procedure are in the results section. BLOOD UREA NITROGEN AM 01/12/2023 Results for 3:03 AM CDT this procedure are in the results section. GLUCOSE LEVEL AM 01/12/2023 Results for 3:03 AM CDT this procedure are in the results section. COMPLETE BLOOD COUNT W/ AM 01/12/2023 DIFFERENTIAL 3:03 AM CDT PHOSPHORUS LEVEL AM 01/12/2023 Results for 3:03 AM CDT this procedure are in the results section. MAGNESIUM LEVEL AM 01/12/2023 Results for 3:03 AM CDT this procedure are in the results section. BASIC METABOLIC PANEL, AM 01/12/2023 CALCIUM TOTAL 3:03 AM CDT POC GLUCOSE SCREEN Routine 01/12/2023 Results f or 1:58 AM CDT this procedure are in the results section. COVID-19 (SARS-COV-2) Routine 01/11/2023 Result s for ASYMPTOMATIC-LT 10:25 PM CDT this procedu re are in the results section. XR KNEE 1 OR 2 VW RIGHT Routine 01/11/2023 Resu lts for 10:22 PM CDT this procedure are in the results section. POC GLUCOSE SCREEN Routine 01/11/2023 Results f or 8:37 PM CDT this procedure are in the results section. CT HEAD WO CONTRAST Routine 01/11/2023 Results for 6:29 PM CDT this procedure are in the results section. FRACTIONATED BILIRUBIN Routine 01/11/2023 Resul ts for 4:11 PM CDT this procedure are in the results section. TOTAL PROTEIN Routine 01/11/2023 Results for 4:11 PM CDT this procedure are in the results section. ASPARTATE AMINOTRANSFERASE Routine 01/11/2023 R esults for 4:11 PM CDT this procedure are in the results section. ALANINE AMINOTRANSFERASE Routine 01/11/2023 Res ults for 4:11 PM CDT this procedure are in the results section. ALKALINE PHOSPHATASE Routine 01/11/2023 Results for 4:11 PM CDT this procedure are in the results section. ALBUMIN LEVEL Routine 01/11/2023 Results for 4:11 PM CDT this procedure are in the results section. CALCIUM LEVEL TOTAL Routine 01/11/2023 Results for 4:11 PM CDT this procedure are in the results section. .GLOMERULAR FILTRATION Routine 01/11/2023 Resul ts for RATE 4:11 PM CDT this procedure are in the results section. SERUM CREATININE Routine 01/11/2023 Results for 4:11 PM CDT this procedure are in the results section. ELECTROLYTE PANEL Routine 01/11/2023 Results fo r 4:11 PM CDT this procedure are in the results section. BLOOD UREA NITROGEN Routine 01/11/2023 Results for 4:11 PM CDT this procedure are in the results section. GLUCOSE LEVEL Routine 01/11/2023 Results for 4:11 PM CDT this procedure are in the results section. MANUAL DIFFERENTIAL Routine 01/11/2023 Results for 4:11 PM CDT this procedure are in the results section. Results CBC STAT 01/11/2023 Results for 4:11 PM CDT this procedure are in the results section. APTT Routine 01/11/2023 Results for 4:11 PM CDT this procedure are in the results section. PROTHROMBIN TIME Routine 01/11/2023 Results for 4:11 PM CDT this procedure are in the results section. PHOSPHORUS LEVEL Routine 01/11/2023 Results for 4:11 PM CDT this procedure are in the results section. MAGNESIUM LEVEL Routine 01/11/2023 Results for 4:11 PM CDT this procedure are in the results section. 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 FRACTIONATED BILIRUBIN Routine 01/07/2023 Adenoid cystic Res ults for 8:28 AM [employer] carcinoma of this procedure nasopharynx, NOS are in the results section. 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 ALANINE AMINOTRANSFERASE Routine 01/07/2023 Adenoid cystic R esults for 8:28 AM [employer] carcinoma of this procedure nasopharynx, NOS are in the results section. ALKALINE PHOSPHATASE Routine 01/07/2023 Adenoid cystic Resul ts for 8:28 AM [employer] carcinoma of this procedure nasopharynx, NOS are in the results section. 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 .GLOMERULAR FILTRATION Routine 01/07/2023 Adenoid cystic Res ults for RATE 8:28 AM [employer] carcinoma of this procedure nasopharynx, NOS are in the results section. SERUM CREATININE Routine 01/07/2023 Adenoid cystic Results f or 8:28 AM [employer] carcinoma of this procedure nasopharynx, NOS are in the results section. 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 PHOSPHORUS LEVEL Routine 01/07/2023 Adenoid cystic Results f or 8:28 AM [employer] carcinoma of this procedure nasopharynx, NOS are in the results section. MAGNESIUM LEVEL Routine 01/07/2023 Adenoid cystic Results fo r 8:28 AM [employer] carcinoma of this procedure nasopharynx, NOS are in the results section. 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 FRACTIONATED BILIRUBIN Routine 01/01/2023 Adenoid cystic Res ults for 8:26 AM [employer] carcinoma of this procedure nasopharynx, NOS are in the results section. TOTAL PROTEIN Routine 01/01/2023 Adenoid cystic Results for 8:26 AM [employer] carcinoma of this procedure nasopharynx, NOS are in the results section. ASPARTATE AMINOTRANSFERASE Routine 01/01/2023 Adenoid cystic Results for 8:26 AM [employer] carcinoma of this procedure nasopharynx, NOS are in the results section. ALANINE AMINOTRANSFERASE Routine 01/01/2023 Adenoid cystic R esults for 8:26 AM [employer] carcinoma of this procedure nasopharynx, NOS are in the results section. ALKALINE PHOSPHATASE Routine 01/01/2023 Adenoid cystic Resul ts for 8:26 AM [employer] carcinoma of this procedure nasopharynx, NOS are in the results section. ALBUMIN LEVEL Routine 01/01/2023 Adenoid cystic Results for 8:26 AM [employer] carcinoma of this procedure nasopharynx, NOS are in the results section. CALCIUM LEVEL TOTAL Routine 01/01/2023 Adenoid cystic Result s for 8:26 AM [employer] carcinoma of this procedure nasopharynx, NOS are in the results section. .GLOMERULAR FILTRATION Routine 01/01/2023 Adenoid cystic Res ults for RATE 8:26 AM [employer] carcinoma of this procedure nasopharynx, NOS are in the results section. SERUM CREATININE Routine 01/01/2023 Adenoid cystic Results f or 8:26 AM [employer] carcinoma of this procedure nasopharynx, NOS are in the results section. ELECTROLYTE PANEL Routine 01/01/2023 Adenoid cystic Results for 8:26 AM [employer] carcinoma of this procedure nasopharynx, NOS are in the results section. 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 GLUCOSE LEVEL Routine 01/01/2023 Adenoid cystic Results for 8:26 AM [employer] carcinoma of this procedure nasopharynx, NOS are in the results section. PHOSPHORUS LEVEL Routine 01/01/2023 Adenoid cystic Results f or 8:26 AM [employer] carcinoma of this procedure nasopharynx, NOS are in the results section. MAGNESIUM LEVEL Routine 01/01/2023 Adenoid cystic Results fo r 8:26 AM [employer] carcinoma of this procedure nasopharynx, NOS are in the results section. COMPLETE BLOOD COUNT W/ Routine 01/01/2023 Adenoid cystic DIFFERENTIAL 8:26 AM [employer] carcinoma of nasopharynx, NOS COMPREHENSIVE METABOLIC Routine 01/01/2023 Adenoid cystic PANEL 8:26 AM [employer] carcinoma of nasopharynx, NOS [place] [employer], Routine 12/29/2022 Sixth (abducent) R esults for INTERMEDIATE - OU - BOTH 10:51 AM [employer] nerve palsy, lef t this procedure EYES eye are in the results section. OCT, OPTIC NERVE - OU - Routine 12/29/2022 Sixth (abducent) Results for BOTH EYES 10:43 AM [employer] nerve palsy, left this proce dure eye are in the results section. OCT, RETINA - OU - BOTH Routine 12/29/2022 Sixth (abducent) Results for EYES 10:43 AM [employer] nerve palsy, left this proce dure eye are in the results section. 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 Results CBC Routine 12/24/2022 Adenoid cystic Results for 9:16 AM [employer] carcinoma of this procedure nasopharynx, NOS are in the results section. FRACTIONATED BILIRUBIN Routine 12/24/2022 Adenoid cystic Res ults for 9:16 AM [employer] carcinoma of this procedure nasopharynx, NOS are in the results section. TOTAL PROTEIN Routine 12/24/2022 Adenoid cystic Results for 9:16 AM [employer] carcinoma of this procedure nasopharynx, NOS are in the results section. ASPARTATE AMINOTRANSFERASE Routine 12/24/2022 Adenoid cystic Results for 9:16 AM [employer] carcinoma of this procedure nasopharynx, NOS are in the results section. ALANINE AMINOTRANSFERASE Routine 12/24/2022 Adenoid cystic R esults for 9:16 AM [employer] carcinoma of this procedure nasopharynx, NOS are in the results section. ALKALINE PHOSPHATASE Routine 12/24/2022 Adenoid cystic Resul ts for 9:16 AM [employer] carcinoma of this procedure nasopharynx, NOS are in the results section. ALBUMIN LEVEL Routine 12/24/2022 Adenoid cystic Results for 9:16 AM [employer] carcinoma of this procedure nasopharynx, NOS are in the results section. CALCIUM LEVEL TOTAL Routine 12/24/2022 Adenoid cystic Result s for 9:16 AM [employer] carcinoma of this procedure nasopharynx, NOS are in the results section. .GLOMERULAR FILTRATION Routine 12/24/2022 Adenoid cystic Res ults for RATE 9:16 AM [employer] carcinoma of this procedure nasopharynx, NOS are in the results section. SERUM CREATININE Routine 12/24/2022 Adenoid cystic Results f or 9:16 AM [employer] carcinoma of this procedure nasopharynx, NOS are in the results section. ELECTROLYTE PANEL Routine 12/24/2022 Adenoid cystic Results for 9:16 AM [employer] carcinoma of this procedure nasopharynx, NOS are in the results section. BLOOD UREA NITROGEN Routine 12/24/2022 Adenoid cystic Result s for 9:16 AM [employer] carcinoma of this procedure nasopharynx, NOS are in the results section. GLUCOSE LEVEL Routine 12/24/2022 Adenoid cystic Results for 9:16 AM [employer] carcinoma of this procedure nasopharynx, NOS are in the results section. PHOSPHORUS LEVEL Routine 12/24/2022 Adenoid cystic Results f or 9:16 AM [employer] carcinoma of this procedure nasopharynx, NOS are in the results section. MAGNESIUM LEVEL Routine 12/24/2022 Adenoid cystic Results fo r 9:16 AM [employer] carcinoma of this procedure nasopharynx, NOS are in the results section. COMPLETE BLOOD COUNT W/ Routine 12/24/2022 Adenoid cystic DIFFERENTIAL 9:16 AM [employer] carcinoma of nasopharynx, NOS COMPREHENSIVE METABOLIC Routine 12/24/2022 Adenoid cystic PANEL 9:16 AM [employer] carcinoma of nasopharynx, NOS COVID-19 (SARS-COV-2) Routine 12/23/2022 Suspected COVID-19 Results for PCR-ASYMPTOMATIC MC 12:01 PM [employer] this pro cedure are in the results section. POC GLUCOSE SCREEN Routine 12/15/2022 Results f or 6:07 PM [employer] this procedure are in the results section. POC GLUCOSE SCREEN Routine 12/15/2022 Results f or 12:52 PM [employer] this procedure are in the results section. OCT, OPTIC NERVE - OU - Routine 12/15/2022 Diplopia Resu lts for BOTH EYES 10:37 AM [employer] this procedure are in the results section. OCT, RETINA - OU - BOTH Routine 12/15/2022 Diplopia Resu lts for EYES 10:37 AM [employer] this procedure are in the results section. FUNDUS PHOTOS - OU - BOTH Routine 12/15/2022 Diplopia Re sults for EYES 10:37 AM [employer] this procedure are in the results section. 3D DENTAL IMAGING (ICAT) Routine 12/15/2022 Encounter for Re sults for 8:42 AM [employer] observation for this procedu re other suspected are in the disease ruled out results section. POC GLUCOSE SCREEN Routine 12/15/2022 Results f or 7:19 AM [employer] this procedure are in the results section. POC GLUCOSE SCREEN Routine 12/15/2022 Results f or 6:12 AM [employer] this procedure are in the results section. MANUAL DIFFERENTIAL AM 12/15/2022 Results for 3:44 AM [employer] this procedure are in the results section. Results CBC AM 12/15/2022 Results for 3:44 AM [employer] this procedure are in the results section. CALCIUM LEVEL TOTAL AM 12/15/2022 Results for 3:44 AM [employer] this procedure are in the results section. .GLOMERULAR FILTRATION AM 12/15/2022 Resul ts for RATE 3:44 AM [employer] this procedure are in the results section. SERUM CREATININE AM 12/15/2022 Results for 3:44 AM [employer] this procedure are in the results section. ELECTROLYTE PANEL AM 12/15/2022 Results fo r 3:44 AM [employer] this procedure are in the results section. BLOOD UREA NITROGEN AM 12/15/2022 Results for 3:44 AM [employer] this procedure are in the results section. GLUCOSE LEVEL AM 12/15/2022 Results for 3:44 AM [employer] this procedure are in the results section. COMPLETE BLOOD COUNT W/ AM 12/15/2022 DIFFERENTIAL 3:44 AM [employer] PHOSPHORUS LEVEL AM 12/15/2022 Results for 3:44 AM [employer] this procedure are in the results section. MAGNESIUM LEVEL AM 12/15/2022 Results for 3:44 AM [employer] this procedure are in the results section. BASIC METABOLIC PANEL, AM 12/15/2022 CALCIUM TOTAL 3:44 AM [employer] POC GLUCOSE SCREEN Routine 12/15/2022 Results f or 2:28 AM [employer] this procedure are in the results section. POC GLUCOSE SCREEN Routine 12/14/2022 Results f or 10:04 PM [employer] this procedure are in the results section. POC GLUCOSE SCREEN Routine 12/14/2022 Results f or 5:26 PM [employer] this procedure are in the results section. POC GLUCOSE SCREEN Routine 12/14/2022 Results f or 4:14 PM [employer] this procedure are in the results section. FL MODIFIED BARIUM SWALLOW Routine 12/14/2022 R esults for W SPEECH 2:37 PM [employer] this procedure are in the results section. POC GLUCOSE SCREEN Routine 12/14/2022 Results f or 12:08 PM [employer] this procedure are in the results section. GENERAL LABORATORY ADD ON Routine 12/14/2022 Re sults for TEST 8:03 AM [employer] this procedure are in the results section. POC GLUCOSE SCREEN Routine 12/14/2022 Results f or 7:25 AM [employer] this procedure are in the results section. POC GLUCOSE SCREEN Routine 12/14/2022 Results f or 5:55 AM [employer] this procedure are in the results section. FRACTIONATED BILIRUBIN AM 12/14/2022 Resul ts for 4:46 AM [employer] this procedure are in the results section. TOTAL PROTEIN AM 12/14/2022 Results for 4:46 AM [employer] this procedure are in the results section. ASPARTATE AMINOTRANSFERASE AM 12/14/2022 R esults for 4:46 AM [employer] this procedure are in the results section. ALANINE AMINOTRANSFERASE AM 12/14/2022 Res ults for 4:46 AM [employer] this procedure are in the results section. ALKALINE PHOSPHATASE AM 12/14/2022 Results for 4:46 AM [employer] this procedure are in the results section. ALBUMIN LEVEL AM 12/14/2022 Results for 4:46 AM [employer] this procedure are in the results section. MANUAL DIFFERENTIAL AM 12/14/2022 Results for 4:46 AM [employer] this procedure are in the results section. Results CBC AM 12/14/2022 Results for 4:46 AM [employer] this procedure are in the results section. CALCIUM LEVEL TOTAL AM 12/14/2022 Results for 4:46 AM [employer] this procedure are in the results section. .GLOMERULAR FILTRATION AM 12/14/2022 Resul ts for RATE 4:46 AM [employer] this procedure are in the results section. SERUM CREATININE AM 12/14/2022 Results for 4:46 AM [employer] this procedure are in the results section. ELECTROLYTE PANEL AM 12/14/2022 Results fo r 4:46 AM [employer] this procedure are in the results section. BLOOD UREA NITROGEN AM 12/14/2022 Results for 4:46 AM [employer] this procedure are in the results section. GLUCOSE LEVEL AM 12/14/2022 Results for 4:46 AM [employer] this procedure are in the results section. COMPLETE BLOOD COUNT W/ AM 12/14/2022 DIFFERENTIAL 4:46 AM [employer] PHOSPHORUS LEVEL AM 12/14/2022 Results for 4:46 AM [employer] this procedure are in the results section. MAGNESIUM LEVEL AM 12/14/2022 Results for 4:46 AM [employer] this procedure are in the results section. BASIC METABOLIC PANEL, AM 12/14/2022 CALCIUM TOTAL 4:46 AM [employer] POC GLUCOSE SCREEN Routine 12/14/2022 Results f or 1:36 AM [employer] this procedure are in the results section. POC GLUCOSE SCREEN Routine 12/13/2022 Results f or 9:56 PM [employer] this procedure are in the results section. POC GLUCOSE SCREEN Routine 12/13/2022 Results f or 6:31 PM [employer] this procedure are in the results section. POC GLUCOSE SCREEN Routine 12/13/2022 Results f or 1:24 PM [employer] this procedure are in the results section. POC GLUCOSE SCREEN Routine 12/13/2022 Results f or 8:02 AM [employer] this procedure are in the results section. POC GLUCOSE SCREEN Routine 12/13/2022 Results f or 5:58 AM [employer] this procedure are in the results section. POC GLUCOSE SCREEN Routine 12/13/2022 Results f or 3:24 AM [employer] this procedure are in the results section. MANUAL DIFFERENTIAL AM 12/13/2022 Results for 3:12 AM [employer] this procedure are in the results section. Results CBC AM 12/13/2022 Results for 3:12 AM [employer] this procedure are in the results section. CALCIUM LEVEL TOTAL AM 12/13/2022 Results for 3:12 AM [employer] this procedure are in the results section. .GLOMERULAR FILTRATION AM 12/13/2022 Resul ts for RATE 3:12 AM [employer] this procedure are in the results section. SERUM CREATININE AM 12/13/2022 Results for 3:12 AM [employer] this procedure are in the results section. ELECTROLYTE PANEL AM 12/13/2022 Results fo r 3:12 AM [employer] this procedure are in the results section. BLOOD UREA NITROGEN AM 12/13/2022 Results for 3:12 AM [employer] this procedure are in the results section. GLUCOSE LEVEL AM 12/13/2022 Results for 3:12 AM [employer] this procedure are in the results section. COMPLETE BLOOD COUNT W/ AM 12/13/2022 DIFFERENTIAL 3:12 AM [employer] PHOSPHORUS LEVEL AM 12/13/2022 Results for 3:12 AM [employer] this procedure are in the results section. MAGNESIUM LEVEL AM 12/13/2022 Results for 3:12 AM [employer] this procedure are in the results section. BASIC METABOLIC PANEL, AM 12/13/2022 CALCIUM TOTAL 3:12 AM [employer] POC GLUCOSE SCREEN Routine 12/12/2022 Results f or 9:43 PM [employer] this procedure are in the results section. POC GLUCOSE SCREEN Routine 12/12/2022 Results f or 6:16 PM [employer] this procedure are in the results section. POC GLUCOSE SCREEN Routine 12/12/2022 Results f or 12:52 PM [employer] this procedure are in the results section. POC GLUCOSE SCREEN Routine 12/12/2022 Results f or 7:47 AM [employer] this procedure are in the results section. POC GLUCOSE SCREEN Routine 12/12/2022 Results f or 5:52 AM [employer] this procedure are in the results section. MANUAL DIFFERENTIAL AM 12/12/2022 Results for 4:30 AM [employer] this procedure are in the results section. Results CBC AM 12/12/2022 Results for 4:30 AM [employer] this procedure are in the results section. CALCIUM LEVEL TOTAL AM 12/12/2022 Results for 4:30 AM [employer] this procedure are in the results section. .GLOMERULAR FILTRATION AM 12/12/2022 Resul ts for RATE 4:30 AM [employer] this procedure are in the results section. SERUM CREATININE AM 12/12/2022 Results for 4:30 AM [employer] this procedure are in the results section. ELECTROLYTE PANEL AM 12/12/2022 Results fo r 4:30 AM [employer] this procedure are in the results section. BLOOD UREA NITROGEN AM 12/12/2022 Results for 4:30 AM [employer] this procedure are in the results section. GLUCOSE LEVEL AM 12/12/2022 Results for 4:30 AM [employer] this procedure are in the results section. COMPLETE BLOOD COUNT W/ AM 12/12/2022 DIFFERENTIAL 4:30 AM [employer] PHOSPHORUS LEVEL AM 12/12/2022 Results for 4:30 AM [employer] this procedure are in the results section. MAGNESIUM LEVEL AM 12/12/2022 Results for 4:30 AM [employer] this procedure are in the results section. BASIC METABOLIC PANEL, AM 12/12/2022 CALCIUM TOTAL 4:30 AM [employer] POC GLUCOSE SCREEN Routine 12/12/2022 Results f or 2:06 AM [employer] this procedure are in the results section. POC GLUCOSE SCREEN Routine 12/11/2022 Results f or 10:01 PM [employer] this procedure are in the results section. LACTIC ACID, VENOUS Timed Study 12/11/2022 Results for 9:50 PM [employer] this procedure are in the results section. LIPASE LEVEL STAT 12/11/2022 Results for 6:21 PM [employer] this procedure are in the results section. VENOUS BLOOD GAS STAT 12/11/2022 Results for 6:21 PM [employer] this procedure are in the results section. POC GLUCOSE SCREEN Routine 12/11/2022 Results f or 6:10 PM [employer] this procedure are in the results section. GENERAL LABORATORY ADD ON Routine 12/11/2022 Re sults for TEST 5:39 PM [employer] this procedure are in the results section. KETONE BODIES QUALITATIVE STAT 12/11/2022 Re sults for 5:19 PM [employer] this procedure are in the results section. POC GLUCOSE SCREEN Routine 12/11/2022 Results f or 4:51 PM [employer] this procedure are in the results section. LIPASE LEVEL STAT 12/11/2022 Results for 4:33 PM [employer] this procedure are in the results section. ELECTROLYTE PANEL STAT 12/11/2022 Results fo r 4:33 PM [employer] this procedure are in the results section. LACTIC ACID, VENOUS Timed Study 12/11/2022 Results for 4:33 PM [employer] this procedure are in the results section. POC GLUCOSE SCREEN Routine 12/11/2022 Results f or 3:34 PM [employer] this procedure are in the results section. POC CRITICAL Routine 12/11/2022 Results for 3:34 PM [employer] this procedure are in the results section. POC GLUCOSE SCREEN Routine 12/11/2022 Results f or 2:33 PM [employer] this procedure are in the results section. POC CRITICAL Routine 12/11/2022 Results for 2:33 PM [employer] this procedure are in the results section. POC GLUCOSE SCREEN Routine 12/11/2022 Results f or 12:35 PM [employer] this procedure are in the results section. POC GLUCOSE SCREEN Routine 12/11/2022 Results f or 8:14 AM [employer] this procedure are in the results section. LACTIC ACID, VENOUS Routine 12/11/2022 Results for 4:37 AM [employer] this procedure are in the results section. MANUAL DIFFERENTIAL AM 12/11/2022 Results for 4:30 AM [employer] this procedure are in the results section. Results CBC AM 12/11/2022 Results for 4:30 AM [employer] this procedure are in the results section. CALCIUM LEVEL TOTAL AM 12/11/2022 Results for 4:30 AM [employer] this procedure are in the results section. .GLOMERULAR FILTRATION AM 12/11/2022 Resul ts for RATE 4:30 AM [employer] this procedure are in the results section. SERUM CREATININE AM 12/11/2022 Results for 4:30 AM [employer] this procedure are in the results section. ELECTROLYTE PANEL AM 12/11/2022 Results fo r 4:30 AM [employer] this procedure are in the results section. BLOOD UREA NITROGEN AM 12/11/2022 Results for 4:30 AM [employer] this procedure are in the results section. GLUCOSE LEVEL AM 12/11/2022 Results for 4:30 AM [employer] this procedure are in the results section. COMPLETE BLOOD COUNT W/ AM 12/11/2022 DIFFERENTIAL 4:30 AM [employer] PHOSPHORUS LEVEL AM 12/11/2022 Results for 4:30 AM [employer] this procedure are in the results section. MAGNESIUM LEVEL AM 12/11/2022 Results for 4:30 AM [employer] this procedure are in the results section. BASIC METABOLIC PANEL, AM 12/11/2022 CALCIUM TOTAL 4:30 AM [employer] POC GLUCOSE SCREEN Routine 12/11/2022 Results f or 1:20 AM [employer] this procedure are in the results section. POC GLUCOSE SCREEN Routine 12/10/2022 Results f or 10:00 PM [employer] this procedure are in the results section. POC GLUCOSE SCREEN Routine 12/10/2022 Results f or 6:29 PM [employer] this procedure are in the results section. POC GLUCOSE SCREEN Routine 12/10/2022 Results f or 5:20 PM [employer] this procedure are in the results section. CT HEAD WO CONTRAST STAT 12/10/2022 Results for 3:21 PM [employer] this procedure are in the results section. POC GLUCOSE SCREEN Routine 12/10/2022 Results f or 1:45 PM [employer] this procedure are in the results section. POC GLUCOSE SCREEN Routine 12/10/2022 Results f or 11:35 AM [employer] this procedure are in the results section. POC GLUCOSE SCREEN Routine 12/10/2022 Results f or 7:30 AM [employer] this procedure are in the results section. URINALYSIS WITH Routine 12/10/2022 Results for MICROSCOPIC IF INDICATED 6:13 AM [employer] thi s procedure are in the results section. URINE CULTURE Routine 12/10/2022 Results for 6:13 AM [employer] this procedure are in the results section. MANUAL DIFFERENTIAL STAT 12/10/2022 Results for 5:13 AM [employer] this procedure are in the results section. Results CBC STAT 12/10/2022 Results for 5:13 AM [employer] this procedure are in the results section. CALCIUM LEVEL TOTAL AM 12/10/2022 Results for 5:13 AM [employer] this procedure are in the results section. .GLOMERULAR FILTRATION AM 12/10/2022 Resul ts for RATE 5:13 AM [employer] this procedure are in the results section. SERUM CREATININE AM 12/10/2022 Results for 5:13 AM [employer] this procedure are in the results section. ELECTROLYTE PANEL AM 12/10/2022 Results fo r 5:13 AM [employer] this procedure are in the results section. BLOOD UREA NITROGEN AM 12/10/2022 Results for 5:13 AM [employer] this procedure are in the results section. GLUCOSE LEVEL AM 12/10/2022 Results for 5:13 AM [employer] this procedure are in the results section. HEMOGLOBIN A1C Routine 12/10/2022 Results for 5:13 AM [employer] this procedure are in the results section. COMPLETE BLOOD COUNT W/ AM 12/10/2022 DIFFERENTIAL 5:13 AM [employer] PHOSPHORUS LEVEL AM 12/10/2022 Results for 5:13 AM [employer] this procedure are in the results section. MAGNESIUM LEVEL AM 12/10/2022 Results for 5:13 AM [employer] this procedure are in the results section. BASIC METABOLIC PANEL, AM 12/10/2022 CALCIUM TOTAL 5:13 AM [employer] POC GLUCOSE SCREEN Routine 12/10/2022 Results f or 1:38 AM [employer] this procedure are in the results section. POC GLUCOSE SCREEN Routine 12/09/2022 Results f or 11:18 PM [employer] this procedure are in the results section. POC VENOUS BLOOD GAS + Routine 12/09/2022 Resul ts for LACTATE 9:36 PM [employer] this procedure are in the results section. FRACTIONATED BILIRUBIN Routine 12/09/2022 Resul ts for 6:01 PM [employer] this procedure are in the results section. TOTAL PROTEIN Routine 12/09/2022 Results for 6:01 PM [employer] this procedure are in the results section. ASPARTATE AMINOTRANSFERASE Routine 12/09/2022 R esults for 6:01 PM [employer] this procedure are in the results section. ALANINE AMINOTRANSFERASE Routine 12/09/2022 Res ults for 6:01 PM [employer] this procedure are in the results section. ALKALINE PHOSPHATASE Routine 12/09/2022 Results for 6:01 PM [employer] this procedure are in the results section. ALBUMIN LEVEL Routine 12/09/2022 Results for 6:01 PM [employer] this procedure are in the results section. CALCIUM LEVEL TOTAL Routine 12/09/2022 Results for 6:01 PM [employer] this procedure are in the results section. .GLOMERULAR FILTRATION Routine 12/09/2022 Resul ts for RATE 6:01 PM [employer] this procedure are in the results section. SERUM CREATININE Routine 12/09/2022 Results for 6:01 PM [employer] this procedure are in the results section. ELECTROLYTE PANEL Routine 12/09/2022 Results fo r 6:01 PM [employer] this procedure are in the results section. BLOOD UREA NITROGEN Routine 12/09/2022 Results for 6:01 PM [employer] this procedure are in the results section. GLUCOSE LEVEL Routine 12/09/2022 Results for 6:01 PM [employer] this procedure are in the results section. MANUAL DIFFERENTIAL STAT 12/09/2022 Results for 6:01 PM [employer] this procedure are in the results section. Results CBC STAT 12/09/2022 Results for 6:01 PM [employer] this procedure are in the results section. LACTATE DEHYDROGENASE Routine 12/09/2022 Result s for 6:01 PM [employer] this procedure are in the results section. APTT Routine 12/09/2022 Results for 6:01 PM [employer] this procedure are in the results section. PROTHROMBIN TIME Routine 12/09/2022 Results for 6:01 PM [employer] this procedure are in the results section. PHOSPHORUS LEVEL Routine 12/09/2022 Results for 6:01 PM [employer] this procedure are in the results section. MAGNESIUM LEVEL Routine 12/09/2022 Results for 6:01 PM [employer] this procedure are in the results section. COMPREHENSIVE METABOLIC Routine 12/09/2022 PANEL 6:01 PM [employer] COMPLETE BLOOD COUNT W/ Routine 12/09/2022 DIFFERENTIAL 6:01 PM [employer] AMMONIA LEVEL Routine 12/09/2022 Results for 6:01 PM [employer] this procedure are in the results section. COVID-19 (SARS-COV-2) Routine 12/09/2022 Result s for ASYMPTOMATIC-LT 6:01 PM [employer] this procedu re are in the results section. HP MOLECULAR BLOOD Routine 12/04/2022 Results f or COLLECTION 10:56 AM [employer] this procedure are in the results section. HP SOLID TUMOR GENOMIC Routine 12/04/2022 ASSAY FUSIONS 2018 10:56 AM [employer] INTERPRETATION AND REPORT HP MDA CHRISTINE MUTATION Routine 12/04/2022 ANALYSIS PRECISION PANEL 10:56 AM [employer] REPORT MRI SKULL BASE WITH AND Routine 11/30/2022 Adenocarcinoma of Results for WITHOUT CONTRAST 11:12 AM [employer] nasopharynx this proced ure are in the results section. PETCT CONTRAST ENHANCED Routine 11/27/2022 Adenocarcinoma of Results for INITIAL TREATMENT STRATEGY 3:57 PM [employer] nasop harynx this procedure Malignant neoplasm are in th e of overlapping results sites of section. nasopharynx POC GLUCOSE SCREEN Routine 11/27/2022 Results f or 1:06 PM [employer] this procedure are in the results section. POC GLUCOSE SCREEN Routine 11/27/2022 Results f or 12:29 PM [employer] this procedure are in the results section. FRACTIONATED BILIRUBIN Routine 11/26/2022 Adenocarcinoma of Results for 1:07 PM [employer] nasopharynx this procedure are in the results section. TOTAL PROTEIN Routine 11/26/2022 Adenocarcinoma of Results f or 1:07 PM [employer] nasopharynx this procedure are in the results section. ASPARTATE AMINOTRANSFERASE Routine 11/26/2022 Adenocarcinoma of Results for 1:07 PM [employer] nasopharynx this procedure are in the results section. ALANINE AMINOTRANSFERASE Routine 11/26/2022 Adenocarcinoma o f Results for 1:07 PM [employer] nasopharynx this procedure are in the results section. ALKALINE PHOSPHATASE Routine 11/26/2022 Adenocarcinoma of Re sults for 1:07 PM [employer] nasopharynx this procedure are in the results section. ALBUMIN LEVEL Routine 11/26/2022 Adenocarcinoma of Results f or 1:07 PM [employer] nasopharynx this procedure are in the results section. CALCIUM LEVEL TOTAL Routine 11/26/2022 Adenocarcinoma of Res ults for 1:07 PM [employer] nasopharynx this procedure are in the results section. .GLOMERULAR FILTRATION Routine 11/26/2022 Adenocarcinoma of Results for RATE 1:07 PM [employer] nasopharynx this procedure are in the results section. SERUM CREATININE Routine 11/26/2022 Adenocarcinoma of Result s for 1:07 PM [employer] nasopharynx this procedure are in the results section. ELECTROLYTE PANEL Routine 11/26/2022 Adenocarcinoma of Resul ts for 1:07 PM [employer] nasopharynx this procedure are in the results section. BLOOD UREA NITROGEN Routine 11/26/2022 Adenocarcinoma of Res ults for 1:07 PM [employer] nasopharynx this procedure are in the results section. GLUCOSE LEVEL Routine 11/26/2022 Adenocarcinoma of Results f or 1:07 PM [employer] nasopharynx this procedure are in the results section. MANUAL DIFFERENTIAL Routine 11/26/2022 Adenocarcinoma of Res ults for 1:07 PM [employer] nasopharynx this procedure are in the results section. Results CBC Routine 11/26/2022 Adenocarcinoma of Results fo r 1:07 PM [employer] nasopharynx this procedure are in the results section. PROTHROMBIN TIME Routine 11/26/2022 Adenocarcinoma of Result s for 1:07 PM [employer] nasopharynx this procedure are in the results section. APTT Routine 11/26/2022 Adenocarcinoma of Results fo r 1:07 PM [employer] nasopharynx this procedure are in the results section. THYROID STIMULATING Routine 11/26/2022 Adenocarcinoma of Res ults for HORMONE 1:07 PM [employer] nasopharynx this procedure are in the results section. VITAMIN D 25 HYDROXY LEVEL Routine 11/26/2022 Adenocarcinoma of Results for 1:07 PM [employer] nasopharynx this procedure are in the results section. URIC ACID Routine 11/26/2022 Adenocarcinoma of Results fo r 1:07 PM [employer] nasopharynx this procedure are in the results section. PHOSPHORUS LEVEL Routine 11/26/2022 Adenocarcinoma of Result s for 1:07 PM [employer] nasopharynx this procedure are in the results section. MAGNESIUM LEVEL Routine 11/26/2022 Adenocarcinoma of Results for 1:07 PM [employer] nasopharynx this procedure are in the results section. LACTATE DEHYDROGENASE Routine 11/26/2022 Adenocarcinoma of R esults for 1:07 PM [employer] nasopharynx this procedure are in the results section. FREE THYROXINE Routine 11/26/2022 Adenocarcinoma of Results for 1:07 PM [employer] nasopharynx this procedure are in the results section. COMPREHENSIVE METABOLIC Routine 11/26/2022 Adenocarcinoma of PANEL 1:07 PM [employer] nasopharynx COMPLETE BLOOD COUNT W/ Routine 11/26/2022 Adenocarcinoma of DIFFERENTIAL 1:07 PM [employer] nasopharynx NGS BLOOD CONTROL Routine 11/26/2022 Adenocarcinoma of Re sults for 1:07 PM [employer] nasopharynx this procedure are in the results section. AP IHC HER2/ARCENIO MATERIAL Routine 11/26/2022 Adenocarcinoma o f REQUEST 12:43 PM [employer] nasopharynx AP IHC PD-L1 MATERIAL Routine 11/26/2022 Adenocarcinoma of REQUEST 12:43 PM [employer] nasopharynx AP PTEN MUTATION Routine 11/26/2022 Adenocarcinoma of Res ults for MATERIAL REQUEST 12:43 PM [employer] nasopharynx this proced ure are in the results section. ANA CRISTINA GRIFFIN MTOR MATERIAL Routine 11/26/2022 Adenocarcinoma of Res ults for REQUEST 12:43 PM [employer] nasopharynx this procedure are in the results section. ANA CRISTINA GRIFFIN ERBB2 MUTATION Routine 11/26/2022 Adenocarcinoma of Re sults for ANALAYSIS MATERIAL REQUEST 12:43 PM [employer] nasopharynx t his procedure are in the results section. ANA CRISTINA GRIFFIN EGFR MUTATION Routine 11/26/2022 Adenocarcinoma of Res ults for MATERIAL REQUEST 12:43 PM [employer] nasopharynx this proced ure are in the results section. ANA CRISTINA GRIFFIN ALK MUTATION Routine 11/26/2022 Adenocarcinoma of Resu lts for ANALAYSIS MATERIAL REQUEST 12:43 PM [employer] nasopharynx t his procedure are in the results section. ANA CRISTINA GRIFFIN NTRK3 FUSION Routine 11/26/2022 Adenocarcinoma of Resu lts for ANALYSIS MATERIAL REQUEST 12:43 PM [employer] nasopharynx th is procedure are in the results section. ANA CRISTINA GRIFFIN NTRK2 FUSION Routine 11/26/2022 Adenocarcinoma of Resu lts for ANALYSIS MATERIAL REQUEST 12:43 PM [employer] nasopharynx th is procedure are in the results section. ANA CRISTINA GRIFFIN NTRK1 FUSION Routine 11/26/2022 Adenocarcinoma of Resu lts for ANALYSIS MATERIAL REQUEST 12:43 PM [employer] nasopharynx th is procedure are in the results section. MANUAL DIFFERENTIAL Routine 11/17/2022 Adenocarcinoma of Res ults for 12:11 PM [employer] nasopharynx this procedure are in the results section. Results CBC Routine 11/17/2022 Adenocarcinoma of Results fo r 12:11 PM [employer] nasopharynx this procedure are in the results section. FRACTIONATED BILIRUBIN Routine 11/17/2022 Adenocarcinoma of Results for 12:11 PM [employer] nasopharynx this procedure are in the results section. TOTAL PROTEIN Routine 11/17/2022 Adenocarcinoma of Results f or 12:11 PM [employer] nasopharynx this procedure are in the results section. ASPARTATE AMINOTRANSFERASE Routine 11/17/2022 Adenocarcinoma of Results for 12:11 PM [employer] nasopharynx this procedure are in the results section. ALANINE AMINOTRANSFERASE Routine 11/17/2022 Adenocarcinoma o f Results for 12:11 PM [employer] nasopharynx this procedure are in the results section. ALKALINE PHOSPHATASE Routine 11/17/2022 Adenocarcinoma of Re sults for 12:11 PM [employer] nasopharynx this procedure are in the results section. ALBUMIN LEVEL Routine 11/17/2022 Adenocarcinoma of Results f or 12:11 PM [employer] nasopharynx this procedure are in the results section. CALCIUM LEVEL TOTAL Routine 11/17/2022 Adenocarcinoma of Res ults for 12:11 PM [employer] nasopharynx this procedure are in the results section. .GLOMERULAR FILTRATION Routine 11/17/2022 Adenocarcinoma of Results for RATE 12:11 PM [employer] nasopharynx this procedure are in the results section. SERUM CREATININE Routine 11/17/2022 Adenocarcinoma of Result s for 12:11 PM [employer] nasopharynx this procedure are in the results section. ELECTROLYTE PANEL Routine 11/17/2022 Adenocarcinoma of Resul ts for 12:11 PM [employer] nasopharynx this procedure are in the results section. BLOOD UREA NITROGEN Routine 11/17/2022 Adenocarcinoma of Res ults for 12:11 PM [employer] nasopharynx this procedure are in the results section. GLUCOSE LEVEL Routine 11/17/2022 Adenocarcinoma of Results f or 12:11 PM [employer] nasopharynx this procedure are in the results section. PROLACTIN Routine 11/17/2022 Adenocarcinoma of Results fo r 12:11 PM [employer] nasopharynx this procedure are in the results section. INSULIN LIKE GROWTH FACTOR Routine 11/17/2022 Adenocarcinoma of Results for 1 12:11 PM [employer] nasopharynx this procedure are in the results section. TOTAL T3 Routine 11/17/2022 Adenocarcinoma of Results fo r 12:11 PM [employer] nasopharynx this procedure are in the results section. FREE THYROXINE Routine 11/17/2022 Adenocarcinoma of Results for 12:11 PM [employer] nasopharynx this procedure are in the results section. THYROID STIMULATING Routine 11/17/2022 Adenocarcinoma of Res ults for HORMONE 12:11 PM [employer] nasopharynx this procedure are in the results section. LUTEINIZING HORMONE Routine 11/17/2022 Adenocarcinoma of Res ults for 12:11 PM [employer] nasopharynx this procedure are in the results section. FOLLICLE STIMULATING Routine 11/17/2022 Adenocarcinoma of Re sults for HORMONE LEVEL 12:11 PM [employer] nasopharynx this procedure are in the results section. TESTOSTERONE LEVEL Routine 11/17/2022 Adenocarcinoma of Resu lts for 12:11 PM [employer] nasopharynx this procedure are in the results section. ESTRADIOL LEVEL Routine 11/17/2022 Adenocarcinoma of Results for 12:11 PM [employer] nasopharynx this procedure are in the results section. ADRENOCORTICOTROPIC Routine 11/17/2022 Adenocarcinoma of Res ults for HORMONE 12:11 PM [employer] nasopharynx this procedure are in the results section. CORTISOL Routine 11/17/2022 Adenocarcinoma of Results fo r 12:11 PM [employer] nasopharynx this procedure are in the results section. PROTHROMBIN TIME Routine 11/17/2022 Adenocarcinoma of Result s for 12:11 PM [employer] nasopharynx this procedure are in the results section. APTT Routine 11/17/2022 Adenocarcinoma of Results fo r 12:11 PM [employer] nasopharynx this procedure are in the results section. COMPLETE BLOOD COUNT W/ Routine 11/17/2022 Adenocarcinoma of DIFFERENTIAL 12:11 PM [employer] nasopharynx COMPREHENSIVE METABOLIC Routine 11/17/2022 Adenocarcinoma of PANEL 12:11 PM [employer] nasopharynx HEPATITIS C VIRUS ANTIBODY Routine 11/17/2022 Adenocarcinoma of Results for 12:11 PM [employer] nasopharynx this procedure are in the results section. PATHOLOGY OUTSIDE Routine 10/16/2022 Results fo r INTERPRETATION this procedur e are in the results section. after 03/14/2022 Results (ABNORMAL) .Serum Creatinine (03/11/2023 11:15 AM CDT)Only the most recent of43 resultswithin the time period is included. athologist Signature Creatinine 1.11 (H) 0.51 - 0.95 [place] mg/dL Comment: Testing performed at [facility], [address] [place] [address], [place] [address] Specimen Anatomical Collection Method Collection Time Receive d Time (Source) Location / / Volume Laterality Blood 03/11/2023 11:15 03/11/2023 AM CDT 11:16 AM CDT Narrative [place] - 03/11/2023 11:40 AM CDT Follow up at 1120, lab prior and infusio n after Lorena PEDERSONP LAB BLOOD ORDERABLES Performing Organization Address City/State/ZIP [place] [address] [place] [address] (ABNORMAL) .CBC (03/11/2023 11:15 AM CDT)Only the most recent of43 resultswithin the time period is included. athologist Signature WBC 6.0 4.0 - 11.0 [place] K/uL Comment: All components of the CBC perfo rmed at [facility], [address] [place] [address], [place] [address] RBC 4.12 4.00 - 5.50 M/uL [place] Comment: All components of the CBC perfo rmed at [facility], [address] [place] [address], [place] [address] Hgb 13.3 12.0 - 16.0 gm/dL [place] Comment: As part of CBC or as an individ ual orderable testing performed at [facility], [address] [place] [address], [place] [address] Hct 39.6 37.0 - 47.0 % [place] Comment: As part of CBC testing performe d at [facility], [address] [place] [address], [place] [address] MCV 96 82 - 98 fL [place] Comment: As part of CBC testing performe d at [facility], [address] [place] [address], [place] [address] MCH 32.3 (H) 27.0 - 31.0 pg [place] Comment: As part of CBC testing performe d at [facility], [address] [place] [address], [place] [address] MCHC 33.6 31.0 - 36.0 gm/dL [place] Comment: As part of CBC testing performe d at [facility], [address] [place] [address], [place] [address] RDW-SD 52.0 (H) 35.1 - 46.3 fL [place] Comment: As part of CBC testing performe d at [facility], [address] [place] [address] RDW-CV 14.4 12.0 - 15.5 % [place] Comment: As part of CBC testing performe d at [facility], [address] [place] [address], [place] [address] Platelet count 159 140 - 440 K/uL [facility] Comment: As part of CBC or an individual orderable testing performed at [facility], [address] [place] [address] MPV 10.3 4.0 - 10.4 fL [place] Comment: As part of CBC testing performe d at [facility], [address] [place] [address] Specimen Anatomical Collection Method Collection Time Receive d Time (Source) Location / / Volume Laterality Blood 03/11/2023 11:15 03/11/2023 AM CDT 11:16 AM CDT Narrative [place] - 03/11/2023 11:19 AM CDT Follow up at 1120, lab prior and infusio n after Lorena Hdez [employer] LAB BLOOD ORDERABLES Performing Organization Address City/State/ZIP Code Phon e Number [facility], [place] [id number] [place] [address] (ABNORMAL) Glomerular Filtration Rate (03/11/2023 11:15 AM CDT)Only the most recent of43 resultswithin the time period is included. athologist Signature eGFR 59 (L) >=60 [place] mL/min/1.73 sq. m Comment: The eGFRcr is [...] fulfill criteria for CKD. Testing performed at [facility], [address] [place] [address] Specimen Anatomical Collection Method Collection Time Receive d Time (Source) Location / / Volume Laterality Blood 03/11/2023 11:15 03/11/2023 AM CDT 11:16 AM CDT Narrative [place] - 03/11/2023 11:40 AM CDT Follow up at 1120, lab prior and infusio n after Lorena Kayla Hdez [facility] LAB BLOOD ORDERABLES Performing Organization Address City/[facility]/ZIP Code Phon e Number [place], [place] [id number] [place] [address] Fractionated Bilirubin (03/11/2023 11:15 AM CDT)Only the most recent of24 resultswithin the time period is included. athologist Signature Bili Total <0.3 <=1.2 mg/dL [place] Comment: Direct and indirect bilirubin will not b e reported when Total bilirubin result is <0.3 mg/dL Indocyanine Green (ICG) may cause falsel y elevated bilirubin results. Total and direct bilirubin must not be measured from samples containing indocyanine green. False elevation of total bilirubin can b e seen in patients with IgG concentrations above 28 g/L. Testing performed at [facility], [address] [place] [address] Specimen Anatomical Collection Method Collection Time Receive d Time (Source) Location / / Volume Laterality Blood 03/11/2023 11:15 03/11/2023 AM CDT 11:16 AM CDT Narrative [place] - 03/11/2023 11:40 AM CDT Follow up at 1120, lab prior and infusio n after Lorena Hdez [facility] LAB BLOOD ORDERABLES Performing Organization Address City/State/ZIP [place] [address] [place] [address] (ABNORMAL) Differential (03/11/2023 11:15 AM CDT)Only the most recent of43 resultswithin the time period is included. athologist Signature Neutrophil % 61.7 42.0 - 66.0 [place] % Comment: All components of the Different ial performed at [facility], [address] [place] [address] Lymphocyte % 25.2 24.0 - 44.0 % [place] Comment: As part of the Differential hailey ting performed at [facility], [address] [place] [address], [place] [address] Monocyte % 8.5 (H) 2.0 - 7.0 % [place] Comment: As part of the Differential hailey ting performed at [facility], [address] [place] [address] Eosinophil % 3.8 1.0 - 4.0 % [place] Comment: As part of the Differential hailey ting performed at [facility], [address] [place] [address] Basophil % 0.5 0.0 - 1.0 % [place] Comment: As part of the Differential hailey ting performed at [facility], [address] [place] [address] IGRE % 0.3 0.0 - 0.4 % [place] Comment: IGRE % count includes Metamyelocytes, My elocytes, and Promyelocytes. As part of the Differential testing perf ormed at [facility], [address] [place] [address], [place] [address] Neutrophil Abs 3.71 1.70 - 7.30 K/uL [facility] Comment: As part of the Differential hailey ting performed at [facility], [address] [place] [address], [place] [address] Lymphocyte Abs 1.52 1.00 - 4.80 K/uL [facility] Comment: As part of the Differential hailey ting performed at [facility], [address] [place] [address] Monocyte Abs 0.51 0.08 - 0.70 K/uL [facility] Comment: As part of the Differential hailey ting performed at [facility], [address] [place] [address], [place] [address] Eosinophil Abs 0.23 0.04 - 0.40 K/uL [facility] Comment: As part of the Differential hailey ting performed at [facility], [address] [place] [address] Basophil Abs 0.03 0.00 - 0.10 K/uL [facility] Comment: As part of the Differential hailey ting performed at [facility], [address] [place] [address] IG Abs 0.02 0.00 - 0.04 K/uL [place] Comment: As part of the Differential hailey ting performed at [facility], [address] [place] [address] Specimen Anatomical Collection Method Collection Time Receive d Time (Source) Location / / Volume Laterality Blood 03/11/2023 11:15 03/11/2023 AM CDT 11:16 AM CDT [facility] - 03/11/2023 11:20 AM CDT Follow up at 1120, lab prior and infusio n after Lorena Hdez [facility] LAB BLOOD ORDERABLES Performing Organization Address City/[facility]/ZIP Code Phon e Number [address] BUN (03/11/2023 11:15 AM CDT)Only the most recent of43 resultswithin the time period is included. P athologist Signature BUN 20 6 - 23 mg/dL [place] Comment: Testing performed at [facility], [address] [place] [address] Specimen Anatomical Collection Method Collection Time Receive d Time (Source) Location / / Volume Laterality Blood 03/11/2023 11:15 03/11/2023 AM CDT 11:16 AM CDT [facility] - 03/11/2023 11:40 AM CDT Follow up at 1120, lab prior and infusio n after Lorena Hdez [facility] LAB BLOOD ORDERABLES Performing Organization Address City/[facility]/ZIP [facility] Phon e Number [address] (ABNORMAL) ALT (03/11/2023 11:15 AM CDT)Only the most recent of24 resultswithin the time period is included. athologist Signature ALT 40 (H) <=33 U/L [place] Comment: Testing performed at [facility], [address] [place] [address] Specimen Anatomical Collection Method Collection Time Receive d Time (Source) Location / / Volume Laterality Blood 03/11/2023 11:15 03/11/2023 AM CDT 11:16 AM CDT [facility] - 03/11/2023 11:40 AM CDT Follow up at 1120, lab prior and infusio n after Lorena Hdez [facility] LAB BLOOD ORDERABLES Performing Organization Address City/[facility] Phon e Number [place], [place] [id number] [place] [address] Aspartate Aminotransferase (03/11/2023 11:15 AM CDT)Only the most recent of24 resultswithin the time period is included. P athologist Signature AST 26 <=32 U/L [place] Comment: Testing performed at [facility], [address] [place] [address] Specimen Anatomical Collection Method Collection Time Receive d Time (Source) Location / / Volume Laterality Blood 03/11/2023 11:15 03/11/2023 AM CDT 11:16 AM CDT [facility] - 03/11/2023 11:40 AM CDT Follow up at 1120, lab prior and infusio n after Lorena Hdez [facility] LAB BLOOD ORDERABLES Performing Organization Address City/[facility] Code Phon e Number [address] Total Protein (03/11/2023 11:15 AM CDT)Only the most recent of24 resultswithin the time period is included. P athologist Signature Total Protein 7.0 6.4 - 8.3 [place] g/dL Comment: Testing performed at [facility], [address] [place] [address] Specimen Anatomical Collection Method Collection Time Receive d Time (Source) Location / / Volume Laterality Blood 03/11/2023 11:15 03/11/2023 AM CDT 11:16 AM CDT [facility] - 03/11/2023 11:40 AM CDT Follow up at 1120, lab prior and infusio n after Lorena Hdez [facility] LAB BLOOD ORDERABLES Performing Organization Address City/[facility]/ZIP Code Phon e Number [place], [place] [phone] [place] [address] (ABNORMAL) Alkaline Phosphatase (03/11/2023 11:15 AM CDT)Only the most recent of 24 resultswithin the time period is included. athologist Signature Alk Phos 107 (H) 35 - 104 [place] U/L Comment: Testing performed at [facility], [address] [place] [address] Specimen Anatomical Collection Method Collection Time Receive d Time (Source) Location / / Volume Laterality Blood 03/11/2023 11:15 03/11/2023 AM CDT 11:16 AM CDT [facility] - 03/11/2023 11:40 AM CDT Follow up at 1120, lab prior and infusio n after Lorena Hdez [facility] LAB BLOOD ORDERABLES Performing Organization Address City/[facility] Phon e Number [place], [place] [phone] [place] [address] (ABNORMAL) Magnesium Level (03/11/2023 11:15 AM CDT)Only the most recent of42 resultswithin the time period is included. athologist Signature Magnesium 1.4 (L) 1.6 - 2.6 [place] mg/dL Comment: Testing performed at [facility], [address] [place] [address] Specimen Anatomical Collection Method Collection Time Receive d Time (Source) Location / / Volume Laterality Blood 03/11/2023 11:15 03/11/2023 AM CDT 11:16 AM CDT [facility] - 03/11/2023 11:40 AM CDT Follow up at 1120, lab prior and infusio n after Lorena Garza Hdez [facility] LAB BLOOD ORDERABLES Performing Organization Address City/[facility]/ZIP [place] [address] [place] [address] (ABNORMAL) Glucose Level (03/11/2023 11:15 AM CDT)Only the most recent of43 resultswithin the time period is included. athologist Signature Glucose Level 324 (H) 70 - 99 [place] mg/dL Comment: Effective 05/27/16, the glucose reference intervals have been updated based on [place] Diabetes [employer] guidelines (Standards of Medical Care in Diabetes 2016. Diabetes Care 2016; 39: S13-S22). Fasting blood glucose: Normal: 70-99 mg/dL Impaired fasting glucose (increased risk for diabetes or pre-diabetes): 100- 125 mg/dL Diabetes mellitus: >/=126 mg/dL Random blood glucose: Normal: 70-199 mg/dL Note: Random glucose >100 mg/dL is assoc iated with increased risk for diabetes [facility], [address] [place] [address] Specimen Anatomical Collection Method Collection Time Receive d Time (Source) Location / / Volume Laterality Blood 03/11/2023 11:15 03/11/2023 AM CDT 11:16 AM CDT Narrative [place] - 03/11/2023 11:40 AM CDT Follow up at 1120, lab prior and infusio n after Lorena Hdez [facility] LAB BLOOD ORDERABLES Performing Organization Address City/State/ZIP Code Phon e Number [place], [place] [phone] [place] [address] Calcium Level (03/11/2023 11:15 AM CDT)Only the most recent of43 resultswithin the time period is included. athologist Signature Calcium Lvl 9.3 8.4 - 10.2 [place] mg/dL Comment: [facility] [address] [place] [address] Specimen Anatomical Collection Method Collection Time Receive d Time (Source) Location / / Volume Laterality Blood 03/11/2023 11:15 03/11/2023 AM CDT 11:16 AM CDT Narrative [place] - 03/11/2023 11:40 AM CDT Follow up at 1120, lab prior and infusio n after Lorena Hdez [facility] LAB BLOOD ORDERABLES Performing Organization Address City/State/ZIP [place] [address] [place] [address] Albumin Level (03/11/2023 11:15 AM CDT)Only the most recent of24 resultswithin the time period is included. athologist Signature Albumin Lvl 3.9 3.5 - 5.2 [place] gm/dL Comment: Testing performed at [facility], [address] [place] [address] Specimen Anatomical Collection Method Collection Time Receive d Time (Source) Location / / Volume Laterality Blood 03/11/2023 11:15 03/11/2023 AM CDT 11:16 AM CDT Narrative [place] - 03/11/2023 11:40 AM CDT Follow up at 1120, lab prior and infusio n after Lorena Hdez [facility] LAB BLOOD ORDERABLES Performing Organization Address City/[facility]/ZIP [place] [address] [place] [address] (ABNORMAL) Electrolyte Panel (03/11/2023 11:15 AM CDT)Only the most recent of44 resultswithin the time period is included. athologist Signature Sodium Lvl 134 (L) 136 - 145 [place] mEq/L Comment: Testing performed at [facility], [address] [place] [address] Potassium Lvl 4.5 3.5 - 5.1 mEq/L [facility] Comment: Testing performed at [facility], [address] [place] [address] Chloride 100 98 - 107 mEq/L [place] Comment: Testing performed at [facility], [address] [place] [address] CO2 24 22 - 29 mEq/L [place] Comment: Testing performed at [facility], [address] [place] [address] Anion Gap 10 4 - 14 mEq/L [place] Comment: Testing performed at [facility], [address] [facility], [place] [address] Specimen Anatomical Collection Method Collection Time Receive d Time (Source) Location / / Volume Laterality Blood 03/11/2023 11:15 03/11/2023 AM CDT 11:16 AM CDT Narrative [place] - 03/11/2023 11:40 AM CDT Follow up at 1120, lab prior and infusio n after Lorena Kayla Hdez [employer] LAB BLOOD ORDERABLES Performing Organization Address City/[facility] [place] [address] [address] [facility] (ABNORMAL) POC Glucose Screen (02/16/2023 12:02 PM CDT)Only the most recent of 154 resultswithin the time period is included. athologist Signature POC Glucose 211 (H) 70 - 99 POC [facility] mg/dL [...] concentration in the blood. PO Sample Type Capillary POC [facility] Performing Lab [facility] POC [facility] R Comment: [facility], [facility] [place] [address]; Lab Direct or: Chula Jacob MD; Waived Point of Care Testing - Gabrielle Mueller MD Specimen Anatomical Collection Method Collection Time Receive d Time (Source) Location / / Volume Laterality Blood 02/16/2023 12:02 02/16/2023 PM CDT 12:02 PM CDT Ashleigh Rangel MD POCT ORDERABLES - DEVIC E Performing Organization Address City/State/ZIP Code Phon e Number POC [facility] Unless otherwise noted, [place] [address] lab tests performed by: Division of Pathology and Laboratory Medicine [address] [place] (ABNORMAL) Anti-Xa Level (02/16/2023 11:13 AM CDT) athologist Signature Anti-Xa Level 1.45 (H) 0.00 - [facility] 0.10 [facility] unit/mL [facility] Comment: Anti-Xa Level (Heparin assay for Low Mol ecular Weight Heparin) Monitoring Guidelines: Blood samples should be obtained 4 hours post SC injection (time of peak level) Therapeutic peak levels: 0.6 - 1 units/mL ( 1 mg/kg q 12hr a nd estimated CrCl>=30 mL/min) 0.6 - 1 units/mL ( 1 mg/kg q 24hr a nd estimated CrCl <30 mL/min) 1 - 2 units/mL (1.5 mg/kg q 24hr a nd estimated CrCl>=30 mL/min) Ref: Chest 2008; 133;141S-1598S Hep Type Enoxaparin [facility] Specimen Anatomical Collection Method Collection Time Receive d Time (Source) Location / / Volume Laterality Blood 02/16/2023 11:13 02/16/2023 AM CDT 11:21 AM CDT Narrative [facility] - 3 1:11 PM CDT Nurse please coordinate with lab to draw n Anti-Xa level (low molecular weight heparin level) 4 hours after 02/16/23 morning kourtney xaparin dose is given. Angeli Wang MD LAB BLOOD ORDERABLES Performing Organization Address City/State/ZIP Code Phon e Number [facility] Unless otherwise noted, [place] [address] [place] all lab tests performed by: Division of Pathology and Laboratory Medicine [address] Phosphorus Level (02/16/2023 6:15 AM CDT)Only the most recent of40 resultswithin the time period is included. athologist Signature Phosphorus 4.3 2.5 - 4.5 [facility] mg/dL [facility] Specimen Anatomical Collection Method Collection Time Receive d Time (Source) Location / / Volume Laterality Blood 02/16/2023 6:15 AM 3 6:59 CDT AM CDT Christian Flores [employer] LAB BLOOD ORDERABLES Performing Organization Address City/State/ZIP Code Phon e Number [place] Unless otherwise noted, [address] all lab tests performed by: Division of Pathology and Laboratory Medicine [address] [place] [address] General Laboratory Add-On Test (02/12/2023 9:33 AM CDT)Only the most recent of4 resultswithin the time period is included. Patholo gist Method Time Signature Ordered Test Added [facility] Test Needed procalcitonin [facility] Specimen Anatomical Collection Method Collection Time Receive d Time (Source) Location / / Volume Laterality Existing 02/12/2023 9:33 AM 9:34 CDT AM CDT Kimberli GALE LAB BLOOD ORDERABLES Performing Organization Address City/[facility] Phon e Number [place] Unless otherwise noted, [address] all lab tests performed by: Division of Pathology and Laboratory Medicine [address] [place] [address] (ABNORMAL) Procalcitonin (02/12/2023 5:34 AM CDT)Only the most recent of4 resultswithin the time period is included. P athologist Signature Procalcitonin 0.38 (H) <=0.08 [facility] ng/[facility] Comment: Procalcitonin > 2.00 ng/mL: Procalcit onin levels above 2.00 ng/mL are highly suggestive of a high risk for systematic bacterial infection/ severe sepsis and/or septic shock. Procalcitonin < 0.50 ng/mL: Procalcito elisa levels below 0.50 ng/mL are at low risk for progression to severe sepsis and/ or septic shock. Procalcitonin (ProCT) between 0.15 and 2 .0 ng/mL do not exclude infection, because localized infections (without systemic signs) may be associated with such low levels. Results greater than 400 ng/mL may not b e reliable due to the matrix effect with extended dilution as it exceeds the train inspector's recommended limit. Caution should be exercised when interpreting such values and done in conjunction with clinical context. Specimen Anatomical Collection Method Collection Time Receive d Time (Source) Location / / Volume Laterality Blood 02/12/2023 5:34 AM 6:18 CDT AM CDT Christian Flores NP LAB BLOOD ORDERABLES Performing Organization Address City/State/ZIP Code Phon e Number [facility] Unless otherwise noted, [place] [address] CENTER all lab tests performed by: Division of Pathology and Laboratory Medicine [address] [facility] [address] Maxillofacial Area with Contrast (02/11/2023 4:15 AM CDT) Anatomical Region Laterality Modality Head Computed Tomography Specimen (Source) Anatomical Collection Method Collection Time Re ceived Time Location / / Volume Laterality 02/11/2023 6:31 AM CDT Impressions 02/11/2023 10:31 AM CDT No findings to suggest acute sinusitis. 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 Visualization is difficult with CT, repeat MRI of the skull base could be considered as c linically indicated. I personally reviewed these image(s) [email or web address] machado with the resident's/fellow's interpretations, certify that if a procedure was performed I was physically present, and agree with the final report. 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 Findings: Mucosal retention cysts are visualized i n bilateral maxillary sinuses. The paranasal sinuses are otherwise unremarkable. 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 This lesion is hard to visualize on CT. The soft tissues are unremarkable. The visualized intracranial structures a re without gross abnormality. Procedure Note Roberto Nuñez MD - 02/11/2023F ormatting of this note might be different from the original. 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 Findings: Mucosal retention cysts are visualized i n bilateral maxillary sinuses. The paranasal sinuses are otherwise unremarkable. 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 This lesion is hard to visualize on CT. The soft tissues are unremarkable. The visualized intracranial structures a re without gross abnormality. IMPRESSION: No findings to suggest acute sinusitis. 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 Visualization is difficult with CT, repeat MRI of the skull base could be considered as clinically i ndicated. I personally reviewed these image(s) deborah carter with the resident's/fellow's interpretations, certify that if a procedure was performed I was physically present, and agree with the final report. Angeli Wang MD IMG CT ORDERABLES Creatine Kinase (02/09/2023 5:37 AM CDT)Only the most recent of2 resultswithin the time period is included. P athologist Signature CK 125 26 - 192 [facility] Specimen Anatomical Collection Method Collection Time Receive d Time (Source) Location / / Volume Laterality Blood 02/09/2023 5:37 AM 6:08 CDT AM CDT Shelby GALE LAB BLOOD ORDERABLES Performing Organization Address City/State/ZIP Code Phon e Number [facility] Unless otherwise noted, [place] [address] [place] all lab tests performed by: Division of Pathology and Laboratory Medicine [address] [place] [address] US Arm Venous Doppler Bilateral (02/08/2023 6:28 PM CDT) Anatomical Region Laterality Modality Arm, Extremity Ultrasound Specimen (Source) Anatomical Collection Method Collection Time Re ceived Time Location / / Volume Laterality 02/08/2023 6:36 PM CDT Impressions 02/08/2023 7:43 PM CDT 1. Deep venous thrombosis involving the right axillary vein. 2. Superficial venous thrombosis of th e left basilic vein. 3. Superficial venous thrombosis of th e left cephalic vein. 4. Superficial venous thrombosis of th e right basilic vein. Above finding of thrombosis was relayed via telephone at approximately 6:40 PM on 02/08/[address] Howard to JANEEN De La Cruz. I personally reviewed these image(s) deborah ng with the resident's/fellow's interpretations, certify that if a procedure was performed I was physically present, and agree with the final report. Narrative 02/08/2023 7:43 PM CDT Examination: US ARM VENOUS DOPPLER [facility], 02/08/2023 6:28 PM Clinical History: Adenoid cystic carcino ma of nasopharynx Indication: Pain Comparison: None available. Technique: Grayscale and color/spectral Doppler ultrasound of the bilateral upper extremity veins was performed. Findings: Left: Noncompressible occlusive thrombus is pr esent in the left basilic vein (superficial venous thrombosis). Noncompressible occlusive thrombus is pr esent in the left cephalic vein (superficial venous thrombosis). The left internal jugular, subclavian, a xillary, and brachial veins show phasic color flow and are patent. Right: Noncompressible occlusive thrombus is pr esent in the right axillary vein (deep venous thrombosis). Noncompressible occlusive thrombus is pr esent in the right basilic vein (superficial venous thrombosis). The right internal jugular, subclavian, cephalic, and basilic veins show phasic color flow and are patent. Procedure Note Marti Bernstein MD - 02/08/2023 Examination: US ARM VENOUS DOPPLER [facility], 02/08/2023 6:28 PM Clinical History: Adenoid cystic carcino ma of nasopharynx Indication: Pain Comparison: None available. Technique: Grayscale and color/spectral Doppler ultrasound of the bilateral upper extremity veins was performed. Findings: Left: Noncompressible occlusive thrombus is pr esent in the left basilic vein (superficial venous thrombosis). Noncompressible occlusive thrombus is pr esent in the left cephalic vein (superficial venous thrombosis). The left internal jugular, subclavian, a xillary, and brachial veins show phasic color flow and are patent. Right: Noncompressible occlusive thrombus is pr esent in the right axillary vein (deep venous thrombosis). Noncompressible occlusive thrombus is pr esent in the right basilic vein (superficial venous thrombosis). The right internal jugular, subclavian, cephalic, and basilic veins show phasic color flow and are patent. IMPRESSION: 1. Deep venous thrombosis involving the right axillary vein. 2. Superficial venous thrombosis of the left basilic vein. 3. Superficial venous thrombosis of the left cephalic vein. 4. Superficial venous thrombosis of the right basilic vein. Above finding of thrombosis was relayed via telephone at approximately 6:40 PM on 02/08/[address] Howard to JANEEN De La Cruz. I personally reviewed these image(s) deborah machado with the resident's/fellow's interpretations, certify that if a procedure was performed I was physically present, and agree with the final report. Derrick Gill MD IMG US ORDERABLES Echocardiogram 2D Complete with Contrast (02/08/2023 2:23 PM CDT) Specimen (Source) Anatomical Collection Method Collection Time Re ceived Time Location / / Volume Laterality 02/08/2023 1:46 PM CDT Narrative [facility] - 02/08/2023 5:17 PM CDT Echocardiographic Report Interpretation Summary A complete two-dimensional transthoracic echocardiogram was performed (2D, M- mode, Spectral and color Doppler). Micro-Bubbles injection performed because of poor endocardial resolution. There is no comparison study available. Left ventricular systolic function is no rmal .Using an ultrasound enhancing agent and the Biplane Method of Disks, the LVEF measures 62% The right ventricle is normal in size an d function. There is no pericardial effusion. Right ventricular systolic pressure is n ormal. Left Ventricle: The left ventricle is grossly normal siz e. Increased LV mass is noted using the linear method. Left ventricular systolic function is normal. Using an ultrasound enhancing agent and the Biplane Method of Disks, the LVEF measures 62%. I WMSI = 1.00 % Normal = 1 00 Segments Size X - Cannot 2 - 1-2 small Interpret 1 - Normal Hypokine tic 3 - Akinetic 4 - Dyskinetic3- 5 moderate 5 - Aneurysmal 6-14 large 15-16 diffuse 3D imaginD volumes were not performed in this st udy. Cardiac Mechanics/Speckle Tracking Imagi ng: Speckle tracking imaging was not perform ed in this study. (Dormzy Study). Diastology: Indeterminate. Right Ventricle: The right ventricle is normal in size an d function. Atria: Left atrium not well seen for volumetric measures but appears grossly normal in size. Right atrium not well visualized. Mitral Valve: The mitral valve is grossly normal. Ther e is no mitral valve stenosis. There is trace mitral regurgitation. Tricuspid Valve: The tricuspid valve is not well visualiz ed, but is grossly normal. There is trace tricuspid regurgitation. Right ventricular systolic pressure is normal. Aortic Valve: The aortic valve opens well. No aortic r egurgitation is present. Pulmonic Valve: The pulmonic valve is not well seen, but is grossly normal. Trace pulmonic valvular regurgitation. Great Vessels: The aortic root is normal size. The infe rior vena cava demonstrates normal size and normal respiratory variation. Pericardium/Pleural: There is no pericardial effusion. An ech o lucent space is noted consistent with prominent pericardial fat pad. MMode/2D Measurements IVSd: 1.2 cm LVIDd: 4.9 cm LVIDs: 3.6 cm LVPWd: 1.3 cm FS: 26.4 % Ao root diam: 2.8 cm Ao root area: 6.0 cm2 LVOT diam: 1.9 cm EDV(MOD-A4C): 209.8 ml ESV(MOD-A4C): 85.0 ml LVOT area: 3.0 cm2 EF(MOD-A4C): 59.5 % EDV(MOD-A2C): 155.4 ml ESV(MOD-A2C): 53.9 ml EDV(MOD-bp): 190.6 ml EF(MOD-A2C): 65.3 % ESV(MOD-bp): 71.5 ml EF(MOD-bp): 62.5 % LAV(MOD-A4C): 71.8 ml EDV (MOD-bp) Index: 81.9 ml/m2 ESV (MOD-bp) Index: 30.7 ml/m2 RWT: 0.53 cm Doppler Measurements MV E max alejandra: 99.6 cm/sec MV V2 max: 109.5 cm/sec MV A max alejandra: 86.1 cm/sec MV max P.8 mmHg MV E/A: 1.2 MV V2 mean: 73.3 cm/sec MV mean P.3 mmHg MV V2 VTI: 29.2 cm MVA(VTI): 2.1 cm2 MV P1/2t max alejandra: 100.0 cm/sec Ao V2 max: 183.4 cm/sec MV P1/2t: 69.5 msec Ao max P.5 mmHg MVA(P1/2t): 3.2 cm2 Ao V2 mean: 113.8 cm/sec Ao mean P.0 mmHg MV dec slope: 421.2 cm/sec2 Ao V2 VTI: 32.7 cm NGOZI(I,D): 1.9 cm2 NGOZI(V,D): 1.7 cm2 LV V1 max P.6 mmHg MR max alejandra: 505.6 cm/sec LV V1 mean P.2 mmHg LV V1 max: 107.1 cm/sec LV V1 mean: 69.0 cm/sec LV V1 VTI: 20.6 cm SV(LVOT): 61.0 ml PA V2 max: 144.8 cm/sec PA max P.4 mmHg PA V2 mean: 99.2 cm/sec PA mean P.4 mmHg PA V2 VTI: 29.9 cm Med Peak E' Alejandra: 6.3 cm/sec Lat Peak E' Alejandra: 10.9 cm/sec TR max alejandra: 242.7 cm/sec RAP systole: 3.0 mmHg TR max P.6 mmHg RVSP(TR): 26.6 mmHg NGOZI Index (I,D): 0.80 NGOZI Index (V,D): 0.74 Dimensionless Index: 0.58 E/e' (avg): 11.6 E/e' (lat): 9.2 E/e' (sept): 15.7 Procedure Note Mayi Abdalla MD - 02/08/2023 Echocardiographic Report Interpretation Summary A complete two-dimensional transthoracic echocardiogram was performed (2D, M- mode, Spectral and color Doppler). Micro-Bubbles injection performed because of poor endocardial resolution. There is no comparison study available. Left ventricular systolic function is no rmal .Using an ultrasound enhancing agent and the Biplane Method of Disks, the LVEF measures 62% The right ventricle is normal in size an d function. There is no pericardial effusion. Right ventricular systolic pressure is n ormal. Left Ventricle: The left ventricle is grossly normal siz e. Increased LV mass is noted using the linear method. Left ventricular systolic function is normal. Using an ultrasound enhancing agent and the Biplane Method of Disks, the LVEF measures 62%. I WMSI = 1.00 % Normal = 100 Segments Size X - Cannot 2 - 1-2 small Interpret 1 - Normal Hypokinetic 3 - [place] netic 4 - Dyskinetic3-5 moderate 5 - Aneurysmal 6-14 large 15-16 diffuse 3D imaginD volumes were not performed in this st udy. Cardiac Mechanics/Speckle Tracking Imagi ng: Speckle tracking imaging was not perform ed in this study. (GE Study). Diastology: Indeterminate. Right Ventricle: The right ventricle is normal in size an d function. Atria: Left atrium not well seen for volumetric measures but appears grossly normal in size. Right atrium not well visualized. Mitral Valve: The mitral valve is grossly normal. Ther e is no mitral valve stenosis. There is trace mitral regurgitation. Tricuspid Valve: The tricuspid valve is not well visualiz ed, but is grossly normal. There is trace tricuspid regurgitation. Right ventricular systolic pressure is normal. Aortic Valve: The aortic valve opens well. No aortic r egurgitation is present. Pulmonic Valve: The pulmonic valve is not well seen, but is grossly normal. Trace pulmonic valvular regurgitation. Great Vessels: The aortic root is normal size. The infe rior vena cava demonstrates normal size and normal respiratory variation. Pericardium/Pleural: There is no pericardial effusion. An ech o lucent space is noted consistent with prominent pericardial fat pad. MMode/2D Measurements IVSd: 1.2 cm LVIDd: 4.9 cm LVIDs: 3.6 cm LVPWd: 1.3 cm FS: 26.4 % Ao root diam: 2.8 cm Ao root area: 6.0 cm2 LVOT diam: 1.9 cm EDV(MOD-A4C): 209.8 ml ESV(MOD-A4C): 85.0 ml LVOT area: 3.0 cm2 EF(MOD-A4C): 59.5 % EDV(MOD-A2C): 155.4 ml ESV(MOD-A2C): 53.9 ml EDV(MOD-bp): 19 0.6 ml EF(MOD-A2C): 65.3 % ESV(MOD-bp): 71. 5 ml EF(MOD-bp): 62.5 % LAV(MOD-A4C): 71.8 ml EDV (MOD-bp) Index: 81.9 ml/m2 ESV (MOD-bp) Index: 30.7 ml/m2 RWT: 0.53 cm Doppler Measurements MV E max alejandra: 99.6 cm/sec MV V2 max: 109.5 cm/sec MV A max alejandra: 86.1 cm/sec MV max PG : 4.8 mmHg MV E/A: 1.2 MV V2 mean: 73.3 cm/sec MV mean P.3 mmHg MV V2 VTI: 29.2 cm MVA(VTI): 2.1 cm2 MV P1/2t max alejandra: 100.0 cm/sec Ao V 2 max: 183.4 cm/sec MV P1/2t: 69.5 msec Ao max P.5 mmHg MVA(P1/2t): 3.2 cm2 Ao V2 mean: 113. 8 cm/sec Ao mean P.0 mmHg MV dec slope: 421.2 cm/sec2 Ao V2 VT I: 32.7 cm NGOZI(I,D): 1.9 cm2 NGOZI(V,D): 1.7 cm2 LV V1 max P.6 mmHg MR max alejandra: 5 05.6 cm/sec LV V1 mean P.2 mmHg LV V1 max: 107.1 cm/sec LV V1 mean: 69.0 cm/sec LV V1 VTI: 20.6 cm SV(LVOT): 61.0 ml PA V2 max: 144.8 c m/sec PA max P.4 mmHg PA V2 mean: 99.2 cm/sec PA mean P.4 mmHg PA V2 VTI: 29.9 cm Med Peak E' Alejandra: 6.3 cm/sec Lat Peak E' Alejandra: 10.9 cm/sec TR max alejandra: 242.7 cm/sec RAP systole : 3.0 mmHg TR max P.6 mmHg RVSP(TR): 26.6 mmHg NGOZI Index (I,D): 0.80 NGOZI Index (V,D ): 0.74 Dimensionless Index: 0.58 E/e' (avg): 11.6 E/e' (lat): 9.2 E/e' (sept): 15.7 Thao Soria MD CV ECHO ORDERABLES Performing Organization Address City/[facility] Code Phon e Number [facility] HIV-1/2 Antigen and Antibodies, Fourth Generation (02/07/2023 6:52 AM CDT) Analysis Performed At Patho logist Time Signature HIV Ag/Ab, 4TH NON-REACTI NON-REACTI [facility] Gen VE VE Comment: HIV-1 antigen and HIV-1/HIV-2 antibodies were not detected. There is no laboratory evidenc e of HIV infection. PLEASE NOTE: This information has been d isclosed to you from records whose confidentiality m ay be protected by state law. If your state requires such protection, then the state law prohibits you from making any further disclosure of the inf ormation without the specific written consent of the person to whom it pertains, or as otherwise per mitted by law. A general authorization for the release of medical or other information is NOT sufficient for this purpose. For additional information please refer to http://education.Jooix.Criteo/fa q/BUA378 (This link is being provided for informa tional/ educational purposes only.) The performance of this assay has not be en clinically validated in patients less than 2 years old. Lab test performed by: Lab Mnemonic: [facility] [address] [id number] JOSE ELIAS MELÉNDEZ MD Specimen Anatomical Collection Method Collection Time Receive d Time (Source) Location / / Volume Laterality Blood 02/07/2023 6:52 AM 7:22 CDT AM CDT Thao Soria MD LAB BLOOD ORDERABLES Performing Organization Address City/[facility] Phon e Number [facility] Hepatitis C Virus Ab (02/07/2023 6:52 AM CDT)Only the most recent of2 results within the time period is included. Patholo gist Method Time Signature HCVAb. Non Reactive Non Reactive [facility] [place] Comment: Antibody detection in the immunocompromi sed and immunosuppressed population may be delayed or absent entirely. Therefore serial testing, correlation with other clinical findings, and supplemental testin g (if available) should be taken into co nsideration when interpreting the results. Specimen Anatomical Collection Method Collection Time Receive d Time (Source) Location / / Volume Laterality Blood 02/07/2023 6:52 AM 3 8:32 CDT AM CDT Thao Soria MD LAB BLOOD ORDERABLES Performing Organization Address City/[facility]/ZIP [facility] Phon e Number [facility] Unless otherwise noted, [address] all lab tests performed by: Division of Pathology and Laboratory Medicine [address] [place] [address] Hepatitis B Total Ig Core Ab (SCREENING) (anti-HBc total Ig; HBcAb total Ig) (02/07/2023 6:52 AM CDT) [facility] Method Time Signature HBcAb. Non Reactive Non Reactive [facility] Specimen Anatomical Collection Method Collection Time Receive d Time (Source) Location / / Volume Laterality Blood 02/07/2023 6:52 AM 3 8:32 CDT AM CDT Thao Soria MD LAB BLOOD ORDERABLES Performing Organization Address City/[facility] Phon e Number [facility] Unless otherwise noted, [address] all lab tests performed by: Division of Pathology and Laboratory Medicine [address] [place] [address] Hepatitis B Surface Ag (02/07/2023 6:52 AM CDT) [facility] Method Time Signature HBsAg. Non Reactive Non Reactive [facility] Specimen Anatomical Collection Method Collection Time Receive d Time (Source) Location / / Volume Laterality Blood 02/07/2023 6:52 AM 3 8:32 CDT AM CDT Thao Soria MD LAB BLOOD ORDERABLES Performing Organization Address City/[facility] Phon e Number [facility] Unless otherwise noted, [address] all lab tests performed by: Division of Pathology and Laboratory Medicine [address] [place] [address] Blood Culture (02/07/2023 6:52 AM CDT)Only the most recent of6 resultswithin the time period is included. athologist Signature Final Report No growth [facility] Specimen Anatomical Collection Method Collection Time Receive d Time (Source) Location / / Volume Laterality Blood 02/07/2023 6:52 AM 3 7:43 (Venipuncture-Ri CDT AM CDT ght) Comment: arm Tim Nguyen MD MICROBIOLOGY - GENERAL ORDER [place] Performing Organization Address City/State/ZIP Code Phon e Number [facility] Unless otherwise noted, [address] all lab tests performed by: Division of Pathology and Laboratory Medicine [facility] [place] Transferrin with TIBC (02/07/2023 6:52 AM CDT) athologist Signature Transferrin 205 200 - 360 [facility] mg/dL [facility] TIBC 287 250 - 450 [facility] Specimen Anatomical Collection Method Collection Time Receive d Time (Source) Location / / Volume Laterality Blood 02/07/2023 6:52 AM 3 7:07 CDT AM CDT Thao Soria MD LAB BLOOD ORDERABLES Performing Organization Address City/[facility]/ZIP Code Phon e Number [facility] Unless otherwise noted, [address] all lab tests performed by: Division of Pathology and Laboratory Medicine [facility]5 [place] [place] Iron Level (02/07/2023 6:52 AM CDT) athologist Signature Iron 51 37 - 145 [facility] Specimen Anatomical Collection Method Collection Time Receive d Time (Source) Location / / Volume Laterality Blood 02/07/2023 6:52 AM 3 7:07 CDT AM CDT Thao Soria MD LAB BLOOD ORDERABLES Performing Organization Address City/[facility]/ZIP Code Phon e Number [facility] Unless otherwise noted, [address] all lab tests performed by: Division of Pathology and Laboratory Medicine [facility]5 [place] [place] (ABNORMAL) Hemoglobin A1c (02/07/2023 6:52 AM CDT)Only the most recent of2 resultswithin the time period is included. athologist Signature A1C 10.2 (H) 4.3 - 5.6 % [facility] Comment: HbA1c values >=6.5% are diagnostic of di abetes mellitus. Diagnosis should be confirmed by repeat testing. Therapeutic Action suggested: >8.0% HbA1 c; Goal of therapy: <7.0% HbA1c Specimen Anatomical Collection Method Collection Time Receive d Time (Source) Location / / Volume Laterality Blood 02/07/2023 6:52 AM 3 7:09 CDT AM CDT Thao Soria MD LAB BLOOD ORDERABLES Performing Organization Address City/State/ZIP Code Phon e Number [facility] Unless otherwise noted, [address] all lab tests performed by: Division of Pathology and Laboratory Medicine [address] (ABNORMAL) Ferritin Level (02/07/2023 6:52 AM CDT) athologist Signature Ferritin Lvl 320 (H) 13 - 150 [facility] ng/mL [facility] Specimen Anatomical Collection Method Collection Time Receive d Time (Source) Location / / Volume Laterality Blood 02/07/2023 6:52 AM 3 7:07 CDT AM CDT Thao Soria MD LAB BLOOD ORDERABLES Performing Organization Address City/State/ZIP Code Phon e Number [facility] Unless otherwise noted, [address] all lab tests performed by: Division of Pathology and Laboratory Medicine [address] (ABNORMAL) Lipid Panel (02/07/2023 6:52 AM CDT) athologist Signature Chol 137 <=199 mg/dL [facility] Comment: ATP III Classification of Total Choleste rol Primary Target of Therapy (in mg/dL): <200 Desirable 200-239 Borderline high >=240 High Trig 184 (H) <=149 mg/dL [facility] Comment: ATP III Classification of Serum Triglyce rides Primary Target of Therapy (in mg/dL): <150 Normal 150-199 Borderline high 200-499 High >=500 Very high Non-fasting triglycerides >200 mg/dL may be followed up with a fasting Lipid Panel. Calculated LDL-C may be falsely decreased when non-fasting triglycerides >200 mg/dL. HDL 27 (L) >=40 mg/dL [facility] LDL 73 <=100 mg/dL [facility] Comment: ATP III Classification of LDL Cholestero l Primary Target of Therapy (in mg/dL): <100 Optimal 100-129 Near optimal/above optimal 130-159 Borderline high 160-189 High >=190 Very high VLDL 37 mg/dL MT MD BLUM [facility] Specimen Anatomical Collection Method Collection Time Receive d Time (Source) Location / / Volume Laterality Blood 02/07/2023 6:52 AM 3 7:07 CDT AM CDT Thao Soria MD LAB BLOOD ORDERABLES Performing Organization Address City/State/ZIP Code Phon e Number [facility] Unless otherwise noted, [place] [address] [place] all lab tests performed by: Division of Pathology and Laboratory Medicine [facility] [place] [place] Clostridium Difficile DNA Path Review (02/07/2023 5:18 AM CDT) Component Value Ref Test Analysis Performed At [facility] gist Range Method Time Signature C diff DNA GA Reviewed and Electronically signed by Pathologist: MT MD PATRICIA CHAVEZ MD #[id number] [facility] Comment: C. difficile Toxin DNA (Primary Method) is a nucleic acid amplification test (NAAT) intended for the qualitative detection of bacterial DNA from toxigenic strains of Clostridium difficile. Reference Range: DNA Negative Clostridium Difficile Toxin Assay (Refle x Method) performed by rapid immunoassay for the detection of Clostridium difficile toxins A and B in stool specimens. Reference Range: Negative When invalid results are obtained by eit her the primary or reflex method, a new specimen should be collected for repeat testing. MD Suzie BARRON [id number] Dictated by: MD Suzie BARRON [id number] Dictated Date/Time: 02.07.2023 16:35 PM CDT Transcribed Date/Time: 02.07.2023 16:35 PM CDT Electronically Signed By: MD Suzie MARSHALL [id number] on 02.07.2023 16:35 PM Specimen Anatomical Collection Method Collection Time Receive d Time (Source) Location / / Volume Laterality Stool 02/07/2023 5:18 AM 3 8:07 CDT AM CDT Thao Soria MD MICROBIOLOGY - GENERAL ORDER [place] Performing Organization Address City/State/ZIP Code Phon e Number [facility] Unless otherwise noted, [address] all lab tests performed by: Division of Pathology and Laboratory Medicine [facility]5 [place] [facility] Clostridium Difficile DNA Assay (02/07/2023 5:18 AM CDT) Patholo gist Method Time Signature C difficile DNA Negative Negative MT [facility] [place] C difficle Toxin Test Not Negative MT EIA Performed [facility] C difficile C. difficile [facility] Interpretation DNA [place] detection CANCER was negative CENTER making C. difficile infection highly unlikely in this patient. EIA not performed. Specimen Anatomical Collection Method Collection Time Receive d Time (Source) Location / / Volume Laterality Stool 02/07/2023 5:18 AM 6:14 CDT AM CDT Thao Cisneros Estella GRIFFIN MICROBIOLOGY - GENERAL ORDER GODWIN Performing Organization Address City/State/ZIP Code Phon e Number [place] [facility] Unless otherwise noted, [address] all lab tests performed by: Division of Pathology and Laboratory Medicine [facility]5 Rossiter Tracie Gastrointestinal Multiplex Panel (02/07/2023 5:16 AM CDT) Component Value Ref Range Test Analysis Performed Pathologis t Method Time At [facility] Campylobacter Not Detected Not [facility] Detected [facility] C difficile DNA (GI Refer to [facility] Multi Panel) separate C. KULWANT difficile DNA CANCER Assay for CENTER results Plesiomonas Not Detected Not [facility] shigelloides Detected [facility] Salmonella Not Detected Not [facility] Detected [facility] Vibrio Not Detected Not [facility] Detected [facility] Vibrio cholerae Not Detected Not [facility] Detected [facility] Yersinia Not Detected Not [facility] enterocolitica Detected [facility] Enteroaggregative E. Not Detected Not [facility] coli (EAEC) Detected [facility] Enteropathogenic E. Not Detected Not [facility] coli (EPEC) Detected [facility] Enterotoxigenic E. Not Detected Not [facility] coli (ETEC) Detected [facility] Shiga-like Not Detected Not [facility] toxin-producing E. Detected [facility] (STEC) [facility] E. coli O157 Not Not [facility] Applicable Detected [facility] Shigella/Enteroinvas Not Detected Not [facility] rosales E. coli (EIEC) Detected [facility] Cryptosporidium Not Detected Not [facility] Detected [facility] Cyclospora Not Detected Not [facility] cayetanensis Detected [facility] Entamoeba Not Detected Not [facility] histolytica Detected [facility] Giardia lamblia Not Detected Not [facility] Detected [facility] Adenovirus F 40/41 Not Detected Not [facility] Detected [facility] Astrovirus Not Detected Not [facility] Detected [facility] Norovirus GI/GII Not Detected Not [facility] Detected [facility] Rotavirus A Not Detected Not [facility] Detected [facility] Sapovirus (I, II, IV Not Detected Not [facility] MD and V) Detected [facility] Specimen Anatomical Collection Method Collection Time Receive d Time (Source) Location / / Volume Laterality Stool 02/07/2023 5:16 AM 6:13 CDT AM CDT Son Amelia Estella GRIFFIN MICROBIOLOGY - GENERAL ORDER GODWIN Performing Organization Address City/State/ZIP Code Phon e Number [place] [facility] Unless otherwise noted, [address] all lab tests performed by: Division of Pathology and Laboratory Medicine [address] [place] [address] Gastrointestinal Multiplex Panel Path Review (02/07/2023 5:16 AM CDT) [facility] gist Method Time Signature [place] Reviewed and Electronically signed by Pathologist: CARLA CHAVEZ MD #[id number] [facility] Comment: Performed by real-time PCR methodology. This assay detects the presence of nucleic acid (DNA or RNA) for the pathogens reported. A result of "Not Detected" does not exclude the possibility of the presen ce of one or more of the pathogens at le ss than the detection limits of this assay. The results of the GI Panel should be co nsidered presumptive. Clinical correlation is recommended. PATRICIA CHAVEZ MD - [id number] Dictated by: MD Suzie BARRON [id number] Dictated Date/Time: 02.07.2023 16:40 PM CDT Transcribed Date/Time: 02.07.2023 16:40 PM CDT Electronically Signed By: MD Suzie MARSHALL [id number] on 02.07.2023 16:40 PM Specimen Anatomical Collection Method Collection Time Receive d Time (Source) Location / / Volume Laterality Stool 02/07/2023 5:16 AM 3 6:13 CDT AM CDT Thao Soria MD LAB BLOOD ORDERABLES Performing Organization Address [facility] Phon e Number [facility] Unless otherwise noted, [address] all lab tests performed by: Division of Pathology and Laboratory Medicine [address] [place] EKG, 12-Lead (Portable) (02/07/2023)Only the most recent of2 resultswithin the time period is included. Specimen (Source) Anatomical Location Collection Method / Collectio n Time Received Time / Laterality Volume Narrative This result has an attachment that is no t available. Romana Guy MD ECG ORDERABLES Performing Organization Address [facility] Phon e Number DARI IECG NT-Pro BNP (In-House) (02/06/2023 3:05 AM CDT)Only the most recent of2 results within the time period is included. P athologist Signature NT ProBNP 83 <=125 pg/mL [facility] Specimen Anatomical Collection Method Collection Time Receive d Time (Source) Location / / Volume Laterality Blood 02/06/2023 3:05 AM 3 3:20 CDT AM CDT Cathie Meneses APN LAB BLOOD ORDERABLES Performing Organization Address [facility] Phon e Number [facility] Unless otherwise noted, [address] all lab tests performed by: Division of Pathology and Laboratory Medicine [address] [place] CRP (02/06/2023 3:05 AM CDT)Only the most recent of3 resultswithin the time period is included. P athologist Signature CRP 65.62 mg/L [facility] Comment: Reference ranges for HS CRP assay are as follows: Reference ranges when used to assess car diac risk: <1.00 mg/L Low cardiovascular risk 1.00-3.00 mg/L Average cardiovascular risk >3.00 mg/L High cardiovascular risk. Reference ranges when used to assess inf lammatory responses: Less than or equal to 10.00 mg/L. Specimen Anatomical Collection Method Collection Time Receive d Time (Source) Location / / Volume Laterality Blood 02/06/2023 3:05 AM 3 3:20 CDT AM CDT Cathie Meneses APN LAB BLOOD ORDERABLES Performing Organization Address City/[facility]/ZIP Code Phon e Number [facility] Unless otherwise noted, [address] all lab tests performed by: Division of Pathology and Laboratory Medicine [address] [facility] Troponin T (In-House) (02/06/2023 1:09 AM CDT)Only the most recent of2 results within the time period is included. P athologist Signature Troponin T 10 <=19 ng/L [facility] Comment: < 19 ng/L Suggest retest at 3 to 6 hours later to rule out myocardial infarction >= 19 to <=52 ng/L Pos sible myocardial injury. Suggest retest at 3 hours. - a change of < 20 ng/L, retest at 6 hours - a change of >= 20 ng/L, suggestive of myocardial infarction > 52 ng/L Suggestive of myocardial infarction Critical value will be reported when cTn T is > 52 ng/L and only reported for the first in a series. Hemolyzed specimens with Hemolysis Index >100 (100 mg/dl or moderate hemolysis) may cause interferences and falsely low results. Specimen Anatomical Collection Method Collection Time Receive d Time (Source) Location / / Volume Laterality Blood 02/06/2023 1:09 AM 3 1:26 CDT AM CDT Romana Guy MD LAB BLOOD ORDERABLES Performing Organization Address City/[facility]/ZIP Code Phon e Number [facility] Unless otherwise noted, [address] all lab tests performed by: Division of Pathology and Laboratory Medicine [address] [place] (ABNORMAL) Urine Culture (02/06/2023 12:40 AM CDT)Only the most recent of3 resultswithin the time period is included. Patholo gist Method Time Signature Final Report 10 - 50,000 cfu/ml Normal site isabel present. MT Generally of low significance. [place] Correlate with clinical data and culture history. CANCER CENTER (A) Specimen Anatomical Collection Method Collection Time Receive d Time (Source) Location / / Volume Laterality Urine 02/06/2023 12:40 02/06/2023 2:54 AM CDT AM CDT Irina Houston APN MICROBIOLOGY - GENERAL ORDER GODWIN Performing Organization Address City/[facility]/ZIP [facility] Phon e Number [facility] Unless otherwise noted, [address] all lab tests performed by: Division of Pathology and Laboratory Medicine [address] [place] [address] aPTT (02/05/2023 8:26 PM CDT)Only the most recent of5 resultswithin the time period is included. athologist Signature aPTT 28.5 22.8 - 34.2 [facility] Specimen Anatomical Collection Method Collection Time Receive d Time (Source) Location / / Volume Laterality Blood 02/05/2023 8:26 PM 3 8:29 CDT PM CDT Deneen Guevara MD LAB BLOOD ORDERABLES Performing Organization Address [facility] Phon e Number [place] Unless otherwise noted, [address] all lab tests performed by: Division of Pathology and Laboratory Medicine [address] [place] [address] VB Lactate (02/05/2023 8:26 PM CDT)Only the most recent of4 resultswithin the time period is included. P athologist Signature V Lactate 1.2 0.5 - 1.6 [facility] mmol/L [facility] Specimen Anatomical Collection Method Collection Time Receive d Time (Source) Location / / Volume Laterality Blood 02/05/2023 8:26 PM 3 8:29 CDT PM CDT Deneen Guevara MD LAB BLOOD ORDERABLES Performing Organization Address [facility] Phon e Number [facility] Unless otherwise noted, [address] all lab tests performed by: Division of Pathology and Laboratory Medicine [address] [place] [address] (ABNORMAL) Prothrombin Time with INR (02/05/2023 8:26 PM CDT)Only the most recent of5 resultswithin the time period is included. P athologist Signature PT 14.7 (H) 11.9 - 14.1 [facility](s) CANCER CENTER INR 1.16 (H) 0.89 - 1.10 [facility] Specimen Anatomical Collection Method Collection Time Receive d Time (Source) Location / / Volume Laterality Blood 02/05/2023 8:26 PM 3 8:29 CDT PM CDT Deneen Guevara MD LAB BLOOD ORDERABLES Performing Organization Address City/[facility]/ZIP Code Phon e Number [facility] Unless otherwise noted, [address] all lab tests performed by: Division of Pathology and Laboratory Medicine [address] [place] [address] (ABNORMAL) D Dimer (02/05/2023 8:26 PM CDT) athologist Signature D-Dimer 3.04 (H) 0.10 - 0.50 [facility] mcg/ml [facility] Comment: The cut off value for exclusion of venou s thromboembolism is <0.51 mcg/mL FEUs (fibrinogen equival ent units). Specimen Anatomical Collection Method Collection Time Receive d Time (Source) Location / / Volume Laterality Blood 02/05/2023 8:26 PM 3 8:29 CDT PM CDT Deneen Guevara MD LAB BLOOD ORDERABLES Performing Organization Address City/[facility] Code Phon e Number [facility] Unless otherwise noted, [address] all lab tests performed by: Division of Pathology and Laboratory Medicine [address] [place] [address] X-ray Abdomen AP (02/05/2023 6:59 PM CDT) Anatomical Region Laterality Modality Abdomen Digital Radiography Specimen (Source) Anatomical Collection Method Collection Time Re ceived Time Location / / Volume Laterality 02/05/2023 7:17 PM CDT Impressions 02/05/2023 7:18 PM CDT No radiographic evidence of obstruction or ileus. 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 Findings: Nonspecific bowel gas pattern. No gross free intraperitoneal air. Moderate amount of stool throughout the colon. No gross acute skeletal abnormality. Cholecystectomy clips noted Procedure Note Braulio Shepherd MD - 02/05/2023Formatting o f this note might be different from the original. 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 Findings: Nonspecific bowel gas pattern. No gross free intraperitoneal air. Moderate amount of stool throughout the colon. No gross acute skeletal abnormality. Cholecystectomy clips noted IMPRESSION: No radiographic evidence of obstruction or ileus. Amanda Proctor MD IMG DIAGNOSTIC IMAGING ORDER GODWIN X-ray Chest 1 View (02/05/2023 6:57 PM CDT) Anatomical Region Laterality Modality Chest Digital Radiography Specimen (Source) Anatomical Collection Method Collection Time Re ceived Time Location / / Volume Laterality 02/05/2023 8:48 PM CDT Impressions 02/05/2023 8:51 PM CDT Intact chest with no acute lobar consolidations or lobar pneumonias.. 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 Findings: The lungs are clear with linear parenchy mal opacities left lower lobe and lateral CP angle consistent with old post inflammatory scarring. There is no pleural effusion or pneumothorax. There is no media stinal or hilar adenopathy. Cardiac silh ouette is normal. Procedure Note Champ Mckinney MD - 02/05/2023Formattin g of this note might be different from the original. 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 Findings: The lungs are clear with linear parenchy mal opacities left lower lobe and lateral CP angle consistent with old post inflammatory scarring. There is no pleural effusion or pneumothorax. There is no mediastinal or hilar adenopathy. Cardiac silhouette is normal . IMPRESSION: Intact chest with no acute lobar consoli dations or lobar pneumonias.. Amanda Proctor MD IM DIAGNOSTIC IMAGING ORDER GODWIN COVID-19 (SARS-CoV-2)Asymptomatic-LT (02/05/2023 5:09 PM CDT)Only the most recent of4 resultswithin the time period is included. [facility] Method Time Signature COVID19 Not Detected Not Detected CARLA GRIFFIN (SARS-CoV-2) [facility] COVID19 SARS Inpatient [place] Indication Admission [facility] Covid 19 See Note [place] Comment [facility] Comment: The ruby SARS-CoV-2 nucleic acid test f or use on the ruby Chastity System is a real-time RT-PCR assay intended for the qualitative detection of SARS-CoV-2 (COVID-19) viral RNA in nasopharyngeal swabs from either individuals suspected of COVID-1 9 by their healthcare provider or from any individu al, including individuals without symptoms or other reasons to suspect COVID-19. A fact sheet for patients provided by the train inspector ([employer]) can be reviewed at: https://www.fda.gov/media/284400/downloa d. A fact sheet for Health Care providers is provided by the train inspector ([employer]) and can be reviewed at: https://www.fda.gov/media/557467/download Results must be interpreted within the c ontext of all relevant clinical and laboratory findings and should not form the sole basis for a diagnosis or treatment decision. Positive results do not rule out bacterial infection or co- infection with other viruses. Negative results do not preclud e SARS-CoV-2 infection and must be combined with clinical observations, patient history, and/or epidemiological information. This assay has been authorized by the A for use only under Emergency Use Authorization (EUA) in laboratories that have been CLIA-certified to perform moderate-complexity and high-complexity tests. The Microbiology Laboratory at [facility], CLIA Accreditation #[id number] a [facility] Accreditation #[id number], verified the performance characteristics of this assay. Internal controls are used to monitor all stages of the test process. Specimen (Source) Anatomical Collection Method Collection Time Re ceived Time Location / / Volume Laterality Nasopharyngeal Swab 02/05/2023 5:09 02/05 PM CDT 5:17 PM CDT Amanda Proctor MD MICROBIOLOGY - GENERAL ORDER GODWIN Performing Organization Address City/[facility]/ZIP [facility] Phon e Number [facility] Unless otherwise noted, [address] all lab tests performed by: Division of Pathology and Laboratory Medicine [address] [place], [place] [address]d Lipase (02/05/2023 3:30 PM CDT)Only the most recent of4 resultswithin the time period is included. P athologist Signature Lipase Lvl 18 13 - 60 U/L [facility] Specimen Anatomical Collection Method Collection Time Receive d Time (Source) Location / / Volume Laterality Blood 02/05/2023 3:30 PM 3 3:39 CDT PM CDT Amanda Proctor MD LAB BLOOD ORDERABLES Performing Organization Address [facility] Phon e Number [facility] Unless otherwise noted, [address] all lab tests performed by: Division of Pathology and Laboratory Medicine [address] [place], [place] [address]d CKMB (02/05/2023 3:30 PM CDT) P athologist Signature CK MB <2.0 <=5.3 ng/mL [facility] Specimen Anatomical Collection Method Collection Time Receive d Time (Source) Location / / Volume Laterality Blood 02/05/2023 3:30 PM 3 3:39 CDT PM CDT Amanda Proctor MD LAB BLOOD ORDERABLES Performing Organization Address [facility] Phon e Number [facility] Unless otherwise noted, [address] all lab tests performed by: Division of Pathology and Laboratory Medicine [address] [place] [address] [place] Amylase Level (02/05/2023 3:30 PM CDT)Only the most recent of2 resultswithin the time period is included. P athologist Signature Amylase Lvl 43 28 - 100 [facility] U/L [facility] Specimen Anatomical Collection Method Collection Time Receive d Time (Source) Location / / Volume Laterality Blood 02/05/2023 3:30 PM 3 3:39 CDT PM CDT Amanda Proctor MD LAB BLOOD ORDERABLES Performing Organization Address City/State/ZIP Code Phon e Number [facility] Unless otherwise noted, [address] all lab tests performed by: Division of Pathology and Laboratory Medicine Brian Hodges (ABNORMAL) Urinalysis with Microscopic (02/05/2023 12:39 AM CDT) [facility] Method Time Signature UA Color Protem (A) Straw-Yel [facility] UA Appear Cloudy (A) Clear [facility] UA Glucose 500 (A) NEG mg/dL [facility] UA Bili NEG NEG [facility] UA Ketones 40 (A) NEG mg/dL [facility] UA Spec Grav 1.021 1.003 - [facility] [address] [facility] UA Blood NEG NEG [facility] UA pH 6.0 5.0 - 9.0 [facility] UA Protein 20 (A) NEG mg/dL [facility] UA Urobilinogen NEG NEG [facility] UA Nitrite NEG NEG [facility] UA Leuk Est NEG NEG [facility] UA WBC NOT SEEN 0 - 2 [facility] /[facility] Comment: Some reporting parameters within the Uri nalysis test have changed due to the implementation of new instrumentation in the Main [place], allowing greater sensitivity of measurement. Urinalysis results rep orted by the [facility] using existing instrumentation, as well as Urinalysis t esting performed manually or by backup methodology at the [facility] will remain relatively unchanged. New reporting parameters and units will not be reported for all campuses. UA RBC 13 (H) 0 - 2 /HPF [facility] UA Mucous NOT SEEN Not Seen-Trace /HPF [facility] UA Bacteria NOT SEEN NOT SEEN /HPF [facility] UA Squam Epi OCC None-Occasional /HPF [facility] Specimen Anatomical Collection Method Collection Time Receive d Time (Source) Location / / Volume Laterality Urine 02/05/2023 12:39 02/06/2023 AM CDT 12:42 AM CDT Irina Houston APN URINE ORDERABLES Performing Organization Address City/State/ZIP Code Phon e Number [facility] Unless otherwise noted, [address] all lab tests performed by: Division of Pathology and Laboratory Medicine [address] [facility] Tip Verification Central Vascular Access Device (01/29/2023 3:08 PM CDT) Narrative Justo Banuelos RN - 01/29/2023 3:08 PM CDT Justo Banuelos RN 01/29/2023 3:08 PM Central Vascular Access Device Tip Verif ication Performed by: Justo Banuelos RN Authorized by: Rashaun Wiley MD CVAD Properties Date device placed: 01/29/2023 Placed by: Justo Banuelos RN Device placement location: [facility] Catheter Type: PICC Catheter lumen: Double lumen Vein location: Basilic Laterality: Right Tip Verification Properties Diagnostic image available: Chest xray Written diagnostic report available: Yes Tip location per report: Superior vena cava (Nguyen Sumner MD) Tip in good position and cleared for inf usion Rashaun Wiley MD IV THERAPY ORDERABLES XR Chest 1 View Post Implant (01/29/2023 2:59 PM CDT) Anatomical Region Laterality Modality Chest Digital Radiography Specimen (Source) Anatomical Collection Method Collection Time Re ceived Time Location / / Volume Laterality 01/29/2023 3:01 PM CDT Impressions 01/29/2023 3:02 PM CDT Right PICC terminates over the mid superior vena cava without evidence of complication. 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 Findings: A right peripherally inserted longline c atheter terminates over the mid superior vena cava. Patient positioning is lordotic. Small l eft pleural effusion is present. No pneumothorax. The lungs are mildly hypoinflated. The cardiomediastinal silhouette is within normal limits. Procedure Note Nguyen Sumner MD - 01/29/2023Forma tting of this note might be different from the original. 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 Findings: A right peripherally inserted longline c atheter terminates over the mid superior vena cava. Patient positioning is lordotic. Small l eft pleural effusion is present. No pneumothorax. The lungs are mildly hypoinflated. The cardiomediastinal silhouette is within normal limits. IMPRESSION: Right PICC terminates over the mid super ior vena cava without evidence of complication. 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 Informed consent obtained prior to procedure, the risks, benefits, and alternative discussed with patient/designated strategic partnership representative. Pre-p rocedure the patient was alert. Time out: universal protocol time out pe rformed and documented. Anesthesia Anesthesia: local infiltration Local anesthetic: lidocaine 1% without e pinephrine Anesthetic total (ml): 10 Sedation Patient sedated?: no Procedure Site preparation: Hand hygiene performed prior to insertio n by all persons performing/assisting with procedure. I nsertion site prepped and cleaned with asceptic technique (Sterile devices , and equipment used. Doors closed and traffic minimized during procedure). Insertion site prepped with chlorhexidine gluconate (Standard). Sk in prep agent completely dried prior to procedure according to manufact urer guidelines. Maximum sterile barriers were used- sterile gloves, ster ile gown, cap, mask and head to toe sterile cover. PICC catheter inser tion tray used. The patient was placed in a Flat/Supinep osition. The insertion site was anesthetized with lidocaine 1% without epinephrine via subcutaneous needle . A high level disinfected ultrasound probe with sterile cover was used for guidance . The ultrasound demonstrated compressibility of theright basilic vein . Venous access obtained using the micropuncture needle. Non-pulsatile da rk red blood obtained. A permanent record of the ultrasound-guided vessel p uncture image has been stored. Sterile Seldinger technique used (Modifi ed ). MicroIntroducer with sheath inserted. Drip test performed to confirm venous pl acement. Dilator inserted gently over guidewire. A new 4 Fr double lumen power rated 0 cm external right basilic PICC was inserted successfully with good flow and blood return in all lumens. Catheter Internal Length (cm): 41 Catheter Trim Length (cm): 41 Number of insertion attempt(s) was 1. Guidewire and dilator removed, examined, and found to be intact. Estimated blood loss was minimal. Specimen Removed: No. Post Procedure Each lumen evacuated of air and flushed with sterile saline. Needleless connector and IV tubing attached to cath eter. Catheter sutured/secured in place, the s ite cleaned and sterile transparent dressing applied with biopat ch and the dressing labeled with date, time, and initial. Catheter re-ass essed and blood return through all lumens. Tip Verification: The right basilic PICC. P wave identifie d with placement. placement and tip verified using tip silk conditioner and place ment and tip verified by x-ray Centeral line is ready for use and in ac ceptable position. Complications: no immediate complication Patient Condition: patient tolerated the procedure well with no immediate complications, patient remained hemodyna mically stable throughout the procedure, patient is warm and well perf used and patient does not report adverse symptoms Responsiveness: alert Patient Disposition: remain in inpatient bed and printed education material provided to patient/caregiver Comments N/A Rashaun Wiley MD IV THERAPY ORDERABLES Hemoglobin (01/28/2023 8:24 AM CDT)Only the most recent of3 resultswithin the time period is included. P athologist [facility] Hgb 13.3 12.0 - 16.0 [facility] gm/dL [facility] Specimen Anatomical Collection Method Collection Time Receive d Time (Source) Location / / Volume Laterality Blood 01/28/2023 8:24 AM 3 8:30 CDT AM CDT Shayecralos Bernardprisca MORENO LAB BLOOD ORDERABLES Performing Organization Address City/[facility]/ZIP [facility] Phon e Number [facility] CANCER Unless otherwise noted, [address] all lab tests performed by: Division of Pathology and Laboratory Medicine [address] [place] [address] Hematocrit (01/28/2023 8:24 AM CDT)Only the most recent of3 resultswithin the time period is included. athologist [facility] Hct 40.6 37.0 - 47.0 [facility] % [facility] Specimen Anatomical Collection Method Collection Time Receive d Time (Source) Location / / Volume Laterality Blood 01/28/2023 8:24 AM 3 8:30 CDT AM CDT Shayecarlos Bernardprisca MORENO LAB BLOOD ORDERABLES Performing Organization Address City/[facility] Phon e Number [facility] CANCER Unless otherwise noted, [address] all lab tests performed by: Division of Pathology and Laboratory Medicine [facility] Michelle [place] (ABNORMAL) Urinalysis Microscopic Exam (01/26/2023 10:45 PM CDT) athologist [facility] UA WBC 6 (H) 0 - 2 /HPF [facility] Comment: Some reporting parameters within the Uri nalysis test have changed due to the implementation of new instrumentation in the [facility] [place], allowing greater sensitivity of measurement. Urinalysis results rep orted by the [facility] using existing instrumentation, as well as Urinalysis t esting performed manually or by backup methodology at the [facility] [place] will remain relatively unchanged. New reporting parameters and units will not be reported for all campuses. UA RBC <1 0 - 2 /HPF [facility] UA Mucous NOT SEEN Not Seen-Trace /HPF MT MD [facility] CANCER [place] UA Bacteria NOT SEEN NOT SEEN /HPF [facility] UA Squam Epi OCC None-Occasional /HPF [facility] Specimen Anatomical Collection Method Collection Time Receive d Time (Source) Location / / Volume Laterality Urine 01/26/2023 10:45 01/26/2023 PM CDT 10:49 PM CDT Amanda Proctor MD LAB BLOOD ORDERABLES Performing Organization Address City/State/ZIP Code Phon e Number [facility] CANCER Unless otherwise noted, [address] all lab tests performed by: Division of Pathology and Laboratory Medicine [facility]5 [facility] (ABNORMAL) Urinalysis w/Microscopic if Indicated (01/26/2023 10:45 PM CDT)Only the most recent of2 resultswithin the time period is included. Analysis Performed At Patho logist Time Signature UA Color Straw [facility] UA Appear Clear Clear [facility] UA Glucose 500 (A) NEG mg/dL [facility] UA Bili NEG NEG [facility] UA Ketones NEG NEG mg/dL [facility] UA Spec Grav 1.020 1.003 - MT MD 1.[address] [facility] UA Blood NEG NEG [facility] UA pH 5.5 5.0 - 9.0 [facility] UA Protein 30 (A) NEG mg/dL [facility] UA Urobilinogen NEG NEG [facility] UA Nitrite NEG NEG [facility] UA Leuk Est NEG NEG [facility] Specimen Anatomical Collection Method Collection Time Receive d Time (Source) Location / / Volume Laterality Urine 01/26/2023 10:45 01/26/2023 PM CDT 10:49 PM CDT mAanda Proctor MD URINE ORDERABLES Performing Organization Address City/State/ZIP Code Phon e Number [facility] CANCER Unless otherwise noted, [address] all lab tests performed by: Division of Pathology and Laboratory Medicine [facility]5 [address] [place] (ABNORMAL) LDH (01/26/2023 2:44 PM CDT)Only the most recent of3 resultswithin the time period is included. P athologist Signature LDH 289 (H) 135 - 214 [facility] U/L [facility] Comment: Results greater than 1651 U/L m ay not be reliable due to matrix effect with extended dilution as it exceeds the manu facturer's recommended limit. Caution should be exercised when interpreting such valu es and done in conjunction with clinical context. Specimen Anatomical Collection Method Collection Time Receive d Time (Source) Location / / Volume Laterality Blood 01/26/2023 2:44 PM 3 3:07 CDT PM CDT Amanda Proctor MD LAB BLOOD ORDERABLES Performing Organization Address City/State/ZIP Code Phon e Number [facility] CANCER Unless otherwise noted, [place] [address] [place] all lab tests performed by: Division of Pathology and Laboratory Medicine [address] [place] (ABNORMAL) Controlled Substance Monitoring Panel, Urine (01/20/2023 12:37 PM CDT) Analysis Performed At Patho logist Time Signature Urine 55.1 mg/dL [facility] Creatinine [facility] Urine Specific 1.014 [facility] Winnie [facility] Urine Ph 6.2 [facility] Urine Oxidants Negative Cutoff: MT 200 mg/L [facility] Urine Comment Normal [facility] U Negative Cutoff: MT Barbiturates-Ma 200 ng/mL [facility] U Cocaine Negative Cutoff: MT Lvl-Luu 150 ng/mL [facility] Comment: This cocaine immunoassay targets benzoyl ecgonine the primary metabolite of cocaine. U THC-Luu See Footnote (A) Cutoff: 50 ng/mL [facility] Comment: RESULT: Presumptive Positive This immunoassay targets delta-9 tetrahy drocannabinol carboxylic acid (THC-COOH), a metabolite of delta-9 tetrahydrocannabinol the main psychoacti ve ingredient of marijuana. Drug confirmation to follow. Presumptive Positive means that the screening method is positive, but the test needs to be run by a confirmato ry method before being finalized. ADDITIONAL INFORMATIO N This report is intended for use in clini mari monitoring or management of patients. It is not inte nded for use in employment-related testing. Codeine Not Detected Cutoff: 25 ng/mL MT MD [facility] Comment: Tylenol 3 Gpczhnx-1-mpjb-glucuronide Not Detected Cutoff: 100 ng/mL [facility] Comment: Metabolite of codeine Morphine Not Detected Cutoff: 25 ng/mL [facility] Comment: Martha Mary, [place] Contin; Also a minor metabolite (10%) of codeine and can be seen in low concentra tions (<2,000 ng/mL) with poppy seed ingestion. Rwzkvezr-6-cpho-glucuronide Not Detected Cutoff: 100 ng/mL [facility] Comment: Metabolite of morphine 6-monoacetylmorphine Not Detected Cutoff: 25 ng/mL [facility] Comment: Metabolite of heroin Hydrocodone Not Detected Cutoff: 25 ng/mL [facility] Comment: Lortab, Conception, Vicodin; Also a very luci r metabolite of codeine and impurity (<1%) of oxycodone. Norhydrocodone Not Detected Cutoff: 25 ng/mL [facility] Comment: Metabolite of hydrocodone Dihydrocodeine Not Detected Cutoff: 25 ng/mL [facility] Comment: Metabolite of hydrocodone Hydromorphone Not Detected Cutoff: 25 ng/mL [facility] Comment: Dilaudid, Exalgo; Also a metabolite of h ydrocodone and a minor (<5%) metabolite of morphine. Avejjorqgnydu-5-uahj-glucuronide Not Detected Cutoff: 100 [facility] ng/mL [facility] Comment: Metabolite of hydromorphone Oxycodone Present (A) Cutoff: 25 ng/mL [facility] Comment: Endocet, Percocet, Oxycontin Noroxycodone Present (A) Cutoff: 25 ng/mL [facility] Comment: Metabolite of oxycodone Oxymorphone Not Detected Cutoff: 25 ng/mL [facility] Comment: Numorphan, Opana; Also a metabo lite of oxycodone. Pethtiacwat-7-vybd-glucuronide Not Detected Cutoff: 100 ng/mL [facility] Comment: Metabolite of oxymorphone and/o r naloxone (nornaloxone) Noroxymorphone Present (A) Cutoff: 25 ng/mL [facility] Comment: Metabolite of oxymorphone and/o r naloxone (nornaloxone) Fentanyl Not Detected Cutoff: 2 ng/mL [facility] Comment: Actiq, Duragesic, Fentora Norfentanyl Not Detected Cutoff: 2 ng/mL MT MD [facility] Comment: Metabolite of fentanyl Meperidine Not Detected Cutoff: 25 ng/mL MT MD [facility] Comment: Demerol Normeperidine Not Detected Cutoff: 25 ng/mL [facility] Comment: Metabolite of meperidine Naloxone Not Detected Cutoff: 25 ng/mL MT MD [facility]A [facility] Comment: Narcan Kztptjti-6-rjxn-glucuronide Not Detected Cutoff: 100 ng/mL [facility] Comment: Metabolite of naloxone U Methadone Not Detected Cutoff: 25 ng/mL MT MD [facility]O [facility] Comment: Dolophine EDDP Not Detected Cutoff: 25 ng/mL MT MD [facility]A [facility] Comment: Metabolite of methadone Propoxyphene Not Detected Cutoff: 25 ng/mL MT MD Benjamin [facility] Comment: Darvon, Darvocet Norpropoxyphene Not Detected Cutoff: 25 ng/mL [facility] Comment: Metabolite of propoxyphene Tramadol Not Detected Cutoff: 25 ng/mL MT MD [facility] Comment: Tradol, Ultram, Ultracet O-desmethyltramadol Not Detected Cutoff: 25 ng/mL [facility] Comment: Metabolite of tramadol Tapentadol Not Detected Cutoff: 25 ng/mL MT MD [facility] Comment: Nucynta Kskprpwyju-zocy-dexclditdru Not Detected Cutoff: 100 ng/mL [facility] Comment: Metabolite of tapentadol Buprenorphine Not Detected Cutoff: 5 ng/mL MT MD Benjamin [facility] Comment: Buprenex, Suboxone Norbuprenorphine Not Detected Cutoff: 5 ng/mL [facility] Comment: Metabolite of buprenorphine Norbuprenorphine Glucuronide Not Detected Cutoff: 20 ng/mL [facility] Comment: Metabolite of buprenorphine Opioid Interpretation See Footnote [facility] Comment: Test detected the presence of oxycodone and one of its metabolites (noroxycodone) along with no roxymorphone (metabolite of oxymorphone). Suspect use of oxymorphone and/or oxycodone within the past three d ays. Trace amounts of oxycodone can be found as an impurity in oxymorphone. ADDITIONAL INFORMATIO N This test was developed and its performa nce characteristics determined by [facility] in a manner co nsistent with CLIA requirements. This test has not been sisi ared or approved by the U.S. Food and Drug Administration. Alprazolam Urine Present (A) Cutoff: 10 ng/mL [facility] Comment: Xanax Alpha-Hydroxyalprazolam Urine Present (A) Cutoff: 10 ng/mL [facility] Comment: Metabolite of Alprazolam Alpha-Hydroxyalprazolam Present (A) Cutoff: 50 ng/mL [facility] Glucuronide Urine [facility] Comment: Metabolite of Alprazolam Chlordiazepoxide Urine Not Detected Cutoff: 10 ng/mL [facility] Comment: Librium Colbazam Urine Not Detected Cutoff: 10 ng/mL [facility] Comment: Fripattium, Onfi N-Desmethylclobazam Urine Not Detected Cutoff: 200 ng/mL [facility] Comment: Metabolite of Clobazam Clonazepam Urine Not Detected Cutoff: 10 ng/mL [facility] Comment: Klonopin, Rivotril 7-Aminoclonazepam Urine Not Detected Cutoff: 10 ng/mL [facility] Comment: Metabolite of Clonazepam Diazepam Urine Not Detected Cutoff: 10 ng/mL [facility] Comment: Valium Nordiazepam Urine Not Detected Cutoff: 10 ng/mL [facility] Comment: Metabolite of Chlordiazepoxide, Diazepam, or Prazepam. Flunitrazepam Urine Not Detected Cutoff: 10 ng/mL [facility] Comment: Rohypnol 7-Aminoflunitrazepam Urine Not Detected Cutoff: 10 ng/mL [facility] Comment: Metabolite of Flunitrazepam FlUrinerazepam Urine Not Detected Cutoff: 10 ng/mL [facility] Comment: Dalmane 2-Hydroxy Ethyl Flurazepam Not Detected Cutoff: 10 ng/mL [facility] Comment: Metabolite of Flurazepam Lorazepam Urine Not Detected Cutoff: 10 ng/mL [facility] Comment: Ativan Lorazepam Glucuronide Not Detected Cutoff: 50 ng/mL [facility] U[facility] CENTER Comment: Metabolite of Lorazepam Midazolam Urine Not Detected Cutoff: 10 ng/mL [facility] Comment: Versed Alpha-Hydroxy Midazolam Not Detected Cutoff: 10 ng/mL [facility] Comment: Metabolite of Midazolam Oxazepam Urine Not Detected Cutoff: 10 ng/mL [facility] Comment: Serax; Also a metabolite of Chlordiazepo xide, Diazepam, or Temazepam. Oxazepam Glucuronide Urine Not Detected Cutoff: 50 ng/mL [facility] Comment: Metabolite of Oxazepam Prazepam Urine Not Detected Cutoff: 10 ng/mL [facility] Comment: Centrax Temazepam Urine Not Detected Cutoff: 10 ng/mL [facility] Comment: Restoril; Also a metabolite of Diazepam. Temazepam Glucuronide Not Detected Cutoff: 50 ng/mL [facility] [place] Comment: Metabolite of Temazepam Triazolam Urine Not Detected Cutoff: 10 ng/mL [facility] Comment: Halcion Alpha-Hydroxy Triazolam Not Detected Cutoff: 10 ng/mL [facility] Comment: Metabolite of Triazolam Zolpidem Urine Not Detected Cutoff: 10 ng/mL [facility] Comment: Ambien Zolpidem Woknk-1-Vxjcjsczkw Present (A) Cutoff: 10 ng/mL [facility] Acid [facility] Comment: Metabolite of Zolpidem Benzodiazepine Interp Urine See Footnote [facility] Comment: Test detected the presence of alprazolam and two of its metabolites (alpha-hydroxyalprazolam and alpha-hydroxyalprazolam glucuronide). Agarwal spect use of alprazolam within the past three days. Test detected the presence of zolpidem p undnk-7-gtfnsribsd acid (metabolite of zolpidem) only. Susp ect use of zolpidem within the past four days. ADDITIONAL INFORMATIO N This test was developed and its performa nce characteristics determined by [facility] in a manner co nsistent with CLIA requirements. This test has not been sisi ared or approved by the U.S. Food and Drug Administration. Methamphetamine Not Detected Cutoff: 100 ng/mL [facility] Comment: Desoxyn Amphetamine Not Detected Cutoff: 100 ng/mL [facility] Comment: Dyanavel XR, Adzenys ER, Adderall, Vyvan se; Also a metabolite of methamphetamine 3,4-Methylenedioxymethamphetamine Not Detected Cutoff: 100 [facility] (MDMA) ng/mL [facility] 3,0-Ryfxoqplkuvhvl-D-Ethylamphetamine Not Detected Cutoff: 100 [facility] (MDEA) ng/mL [facility] 3,4-Methylenedioxyamphetamine (MDA) Not Detected Cutoff: 100 [facility] ng/mL [facility] Comment: Also a metabolite of MDMA and/o r MDEA Ephedrine Not Detected Cutoff: 100 ng/mL [facility] Pseudoephedrine Present (A) Cutoff: 100 ng/mL [facility] Comment: Sudafed Phentermine Not Detected Cutoff: 100 ng/mL [facility] Comment: Adipex-P, Lomaira, Qsymia Phencyclidine (PCP) Not Detected Cutoff: 20 ng/mL [facility] Methylphenidate Not Detected Cutoff: 20 ng/mL [facility] Comment: Ritalin, Concerta Ritalinic acid Not Detected Cutoff: 100 ng/mL [facility] Comment: Metabolite of methylphenidate Stimulant Interpretation See Footnote [facility] Comment: Test detected the presence of pseudoephe drine. Suspect use of pseudoephedrine within the past three days. ADDITIONAL INFORMATIO N This test was developed and its performa nce characteristics determined by [facility] in a manner co nsistent with CLIA requirements. This test has not been sisi ared or approved by the U.S. Food and Drug Administration. Test Performed by: [address] Joiner: Yonathan Guzman M.D. Ph. D.; CLIA# [id number] Patients Current Medications NOT ANSWERED [facility] Comment: ADDITIONAL INFORMATIO N Accuracy and completeness of declared me dications on reports solely dependent on information submitted by client. Specimen Anatomical Collection Method Collection Time Receive d Time (Source) Location / / Volume Laterality Urine 01/20/2023 12:37 01/20/2023 8:31 PM CDT PM CDT Rogerio Kramer MD URINE ORDERABLES Performing Organization Address City/State/ZIP Code Phon e Number [facility] CANCER Unless otherwise noted, [address] all lab tests performed by: Division of Pathology and Laboratory Medicine [address] (ABNORMAL) POC Urine Drug Screen (01/20/2023 12:37 PM CDT) athologist Signature POC U Amp Negative Negative [facility] Comment: Drug Abuse Cutoff Concentration: Cutoff: 1000 ng/mL POC U Barbit Negative Negative [facility] Comment: Drug Abuse Cutoff Concentration: 300 ng/mL POC U Benzo Positive (A) Negative [facility] Comment: Drug Abuse Cutoff Concentration: Cutoff: 300 ng/ mL POC U Cocaine Negative Negative [facility] Comment: Drug Abuse Cutoff Concentration: Cutoff: 300 ng/mL POC U THC Positive (A) Negative [facility] Comment: Drug Abuse Cutoff Concentration: Cutoff: 50 ng/mL POC U Methd Negative Negative [facility] Comment: Drug Abuse Cutoff Concentration: Cutoff: 300 ng/mL POC U Mampht Negative Negative [facility] Comment: Drug Abuse Cutoff Concentration: Cutoff: 1000 ng/mL POC U Opiate Negative Negative [facility] Comment: Drug Abuse Cutoff Concentration: Cutoff: 2000 ng/mL POC U Oxycod Positive (A) Negative [facility] Comment: Drug Abuse Cutoff Concentration: Cutoff: 100 ng/mL Due to the assay cross reactivity betwee n Oxycodone and Opiates, and lower sensitivity compared to GC-MS method, the test results may be falsely positive or falsely negative. Confirmation with concurrent GC-MS results is recommended. POC U PCP Negative Negative [facility] Comment: Drug Abuse Cutoff Concentration: Cutoff: 25 ng/mL POC U TCA Negative Negative [facility] Comment: Drug Abuse Cutoff Concentration: Cutoff: 1000 ng/mL POC U PPX Negative Negative [facility] Comment: Drug Abuse Cutoff Concentration: Cutoff: 300 ng/mL Method description: The one step multi-d rug screen test card with integrated iCup is an immunoassay based competitive binding assay. Drugs which may be present in the urine specimen compete against thei r respective drug conjugate for binding sites on their specific antibody. During testing, a urine specimen migrates upward by capillary action. The presence of drug above the cut-off concentration will saturate all the binding sites of the antibody. The antibody will react with the drug-protein conjugate and a visible colored line chino l show up in the test region. A drug- positive urine specimen will not generate a colored line in the specific test region of the strip because of drug competition , while a drug-negative urine specimen w ill generate a line in the test region because of th e absence of drug competition. Specimen Anatomical Collection Method Collection Time Receive d Time (Source) Location / / Volume Laterality Urine, Clean 01/20/2023 12:37 01/20/2023 1:10 Catch PM CDT PM CDT Narrative [facility] - 1:30 PM CDT The POC Urine Qualitative Drug Screen Pa augusto report is intended for use in clinical monitoring or management of patients. Un confirmed screening results must not be used for non-medical purposes such as legal o r employment-related testing. Rogerio Kramer MD POINT OF CARE TEST ORDERA BLES Performing Organization Address City/State/ZIP Code Phon e Number [facility] Unless otherwise noted, [place], [place] [id number] [place] [address] all lab tests performed by: Division of Pathology and Laboratory Medicine [facility]5 Michelle Hodges Tetrahydocannabinol (THC), Quantitative, Urine (01/20/2023 12:37 PM CDT) athologist Signature U THC n/a CARLA GRIFFIN GC/MS-[facility] U THC see note CARLA GRIFFIN Interp-[facility] Comment: Carboxy-THC Confirmation, U: Carboxy-THC Interpretation: Positive ADDITIONAL INFORMATION: This report is intended for use in clini mari monitoring and management of patients. It is not intend ed for use in employment-related testing. Delta-8 Carboxy-Tetrahydrocannabinol by LC-MS/MS: 672 ng/mL Reference Value: Cutoff: 5 Delta-9 Carboxy-Tetrahydrocannabinol by LC-MS/MS: 42 ng/mL Reference Value: Cutoff: 5 PERFORMING LAB: [address] [address] Yonathan Guzman M.D. Ph.D. [id number] U THC [facility] n/a [facility] Specimen Anatomical Collection Method Collection Time Receive d Time (Source) Location / / Volume Laterality Urine, Clean 01/20/2023 12:37 01/27/2023 Catch PM CDT 11:34 AM CDT Rogerio Kramer MD URINE ORDERABLES Performing Organization Address City/State/ZIP Code Phon e Number [facility] Unless otherwise noted, [place], [place] [id number] [place] [address] all lab tests performed by: Division of Pathology and Laboratory Medicine [facility]5 [facility] X-ray Knee 1 Or 2 Views Right (01/11/2023 10:22 PM CDT) Anatomical Region Laterality Modality Knee, Extremity Digital Radiography Specimen (Source) Anatomical Collection Method Collection Time Re ceived Time Location / / Volume Laterality 01/12/2023 8:20 AM CDT Impressions 01/12/2023 8:22 AM CDT Right knee joint osteoarthritis, primari ly the medial compartment. Narrative 01/12/2023 8:22 AM CDT FULL RESULT: Examination: XR KNEE 1 OR 2 VW RIGHT, 3/ 10:22 PM. 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 A lesser degree of osteoarthritis is present in the patellofemor al joint. Lateral joint space is manifes kaylie by peripheral spur formation. No joint effusion detected. Procedure Note Yonathan Daniel Jr., MD - 01/12/2023F ormatting of this note might be different from the original. FULL RESULT: Examination: XR KNEE 1 OR 2 VW RIGHT, 10:22 PM. 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 A lesser degree of osteoarthritis is present in the patellofemoral joint. Lateral joint space is manifested by per ipheral spur formation. No joint effusion detected. IMPRESSION: Right knee joint osteoarthritis, primari ly the medial compartment. Nguyen Barcenas MD IMG DIAGNOSTIC IMAGING ORDER GODWIN CT Head without Contrast (01/11/2023 6:29 PM CDT)Only the most recent of2 resultswithin the time period is included. Anatomical Region Laterality Modality Head Computed Tomography Specimen (Source) Anatomical Collection Method Collection Time Re ceived Time Location / / Volume Laterality 01/11/2023 6:31 PM CDT Impressions 01/11/2023 6:58 PM CDT 1. No acute intracranial finding including new mass, hemorrhage or large territorial infarction. 2. Known left nasopharyngeal adenoid c ystic carcinoma is better visualized on the recent skull base MRI. I personally reviewed these image(s) deborah ng with the resident's/fellow's interpretations, certify that if a procedure was performed I was physically present, and agree with the final report. Narrative 01/11/2023 6:58 PM CDT FULL RESULT: Examination: CT HEAD WO CONTRAST on 01/11 6:29 PM Clinical History: Left nasopharyngeal ad enoid cystic carcinoma. Indication: Headache, headache Comparison: CT head without contrast anat ed 12/10/2022 and MRI skull base dated 11/30/2022. Technique: CT of the head without contra st. Findings: As more definitively identified on prior MRI skull base, again seen is the left nasopharyngeal adenoid cystic carcinoma (series 3, image 11). No evidence of new mass, intracranial hemorrhage or large territorial infarction. The brain parenchyma is otherwise unrema rkable. The ventricles, sulci and cisterns are w ithin normal limits. The extracranial structures are unremark able. Procedure Note Stefanie Cline MD - 01/11/2023Formattin g of this note might be different from the original. FULL RESULT: Examination: CT HEAD WO CONTRAST on 01/11 6:29 PM Clinical History: Left nasopharyngeal ad enoid cystic carcinoma. Indication: Headache, headache Comparison: CT head without contrast anat ed 12/10/2022 and MRI skull base dated 11/30/2022. Technique: CT of the head without contra st. Findings: As more definitively identified on prior MRI skull base, again seen is the left nasopharyngeal adenoid cystic carcinoma (series 3, image 11). No evidence of new mass, intracranial hemorrhage or large territorial infarction. The brain parenchyma is otherwise unrema rkable. The ventricles, sulci and cisterns are w ithin normal limits. The extracranial structures are unremark able. IMPRESSION: 1. No acute intracranial finding includi ng new mass, hemorrhage or large territorial infarction. 2. Known left nasopharyngeal adenoid cys tic carcinoma is better visualized on the recent skull base MRI. I personally reviewed these image(s) deborah ng with the resident's/fellow's interpretations, certify that if a procedure was performed I was physically present, and agree with the final report. Nguyen Barcenas MD IMG CT ORDERABLES Ny Visual Field, Intermediate - OU - Both Eyes (12/29/2022 10:51 AM SHERIFFS OFFICER) Specimen (Source) Anatomical Location Collection Method / Collectio n Time Received Time / Laterality Volume Narrative Al-Suzanne Heredia MD - 12/30/2022 11:50 AM SHERIFFS OFFICER Right Eye Threshold was 30-2. The AVF laterality w as right. Strategy was TOMER. Left Eye Threshold was 30-2. The AVF laterality w as left. Strategy was TOMER. Notes OS: restarted x 2 due to increased in BS errors. Pt was falling asleep during testing on left eye - I continued to talk and encourage pt to continue looking straight ahead. low test reliability. 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 With borderline thinning temporally righ t eye Suzanne Mcgrath MD OPHTHALMOLOGY IM ORDERABLES OCT, Retina - OU - Both Eyes (12/29/2022 10:43 AM SHERIFFS OFFICER) Specimen (Source) Anatomical Location Collection Method / Collectio n Time Received Time / Laterality Volume Suzanne Hill MD - 12/30/2022 11:44 AM SHERIFFS OFFICER This result has an attachment that is no t available. Normal macular volume. No sign of serou s retinopathy Suzanne Mcgrath MD OPHTHALMOLOGY IMG ORDERABLES COVID-19 (SARS-CoV-2) PCR-Asymptomatic (12/23/2022 12:01 PM SHERIFFS OFFICER) [facility] Method Time Signature COVID19 (SARS Not Detected Not Detected UT CoV-2) [facility] [place] Comment: This test is a qualitative reverse-trans criptase polymerase chain reaction (RT- PCR) developed for the [employer] XIHA0 system and intended for qualitative detection of SARS CoV-2 RNA in nasopharyngeal a nd oropharyngeal swab specimens collecte d from any individuals, including those suspected o f COVID-19 by their healthcare provider, and those without symptoms or other reasons to suspect COVID-19. A fact sheet for patients provided by the train inspector ( [employer]) can be rev iewed at: https://www.[employer].gov/media/267377/downloa d. A fact sheet for Health Care providers is provided by the train inspector ([employer]) and can be reviewed at: https://www.fda.gov/media/549799/download Results must be interpreted within the c ontext of all relevant clinical and laboratory findings and should not form the sole basis for a diagnosis or treatment decision. Positive results do not rule out bacterial infection or co- infection with other viruses. Negative results do not rule ou t SARS-CoV-2 and must be combined with clinical observations, patient history, and/or epidemiological information. "Presumptive Positive" results are due t o partial amplification of SARS-CoV-2 targets and indicates low amounts of virus present in the specimen at or near the limit of detection. Regardless, individuals with "Presumptive Positive" results should be managed per institutional guidelines as individuals positive for SARS-CoV-2 virus, including use of appropriate infection control protocols. Internal controls are included to assess for possible amplification inhibitors. If inhibition is detected, testing is repeated and if inhibition is confirmed the specimen is resulted as "Invalid". When an "Invalid" result occurs, it is recomm ended to wait 3 days before submitting a new spec imen for testing if clinically indicated. This assay has been approved by the FDA for use only under Emergency Use Authorization (EUA) in laboratories that have been CLIA-certified to perform moderate-complexity and high-complexity tests. The performance characteristics of this assay were verified by the Microbiology Laboratory at [facility], CLIA Accreditation #: [id number] and CAP Accreditation #: [id number]. COVID19 SARS Source MACHINE RUG CLEANER Swab [facility] COVID19 SARS Indication Pre-Radiation Therapy [facility] Specimen (Source) Anatomical Collection Method Collection Time Re ceived Time Location / / Volume Laterality Nasopharyngeal Swab 12/23/2022 12:01 12/03 PM SHERIFFS OFFICER 3:41 PM SHERIFFS OFFICER Winter Luu MD MICROBIOLOGY - GENERAL ORDER GODWIN Performing Organization Address City/State/ZIP Code Phon e Number [facility] Unless otherwise noted, [place] [address] CENTER all lab tests performed by: Division of Pathology and Laboratory Medicine [id number] OCT, Optic Nerve - OU - Both Eyes (12/15/2022 10:37 AM SHERIFFS OFFICER) Specimen (Source) Anatomical Location Collection Method / Collectio n Time Received Time / Laterality Volume Narrative Sheridan Alvarez MD - 12/17/2022 12:25 PM SHERIFFS OFFICER Right Eye Average nerve fiber layer thickness cons istent with normal Left Eye Average nerve fiber layer thickness cons istent with normal Sheridan Alvarez MD OPHTHALMOLOGY IMG ORDERABLES OCT, Retina - OU - Both Eyes (12/15/2022 10:37 AM SHERIFFS OFFICER) Specimen (Source) Anatomical Location Collection Method / Collectio n Time Received Time / Laterality Volume Narrative Sheridan Alvarez MD - 12/17/2022 12:25 PM SHERIFFS OFFICER Right Eye This is the baseline exam. Findings incl ude normal observations. Left Eye This is the baseline exam. Findings incl ude normal observations. Sheridan Alvarez MD OPHTHALMOLOGY IMG ORDERABLES Fundus Photos - OU - Both Eyes (12/15/2022 10:37 AM SHERIFFS OFFICER) Specimen (Source) Anatomical Location Collection Method / Collectio n Time Received Time / Laterality Volume Narrative Sheridan Alvarez MD - 12/17/2022 12:25 PM SHERIFFS OFFICER Right Eye Basline Exam. Sheridan Alvarez MD OPHTHALMOLOGY IMG ORDERABLES 3D Dental Imaging (iCAT) (12/15/2022 8:42 AM SHERIFFS OFFICER) Specimen (Source) Anatomical Location Collection Method / Collectio n Time Received Time / Laterality Volume Narrative Systemgenerated, Documentation - 023 8:42 AM SHERIFFS OFFICER This procedure requires no interpretatio n from the radiologist. Naziagbabbeya Otun DDS IMG NON DI ORDERABLES FL Modified Barium Swallow w Speech (12/14/2022 2:37 PM SHERIFFS OFFICER) Anatomical Region Laterality Modality Neck Radio Fluoroscopy Specimen (Source) Anatomical Collection Method Collection Time Re ceived Time Location / / Volume Laterality 12/14/2022 2:58 PM SHERIFFS OFFICER Impressions 12/14/2022 3:08 PM SHERIFFS OFFICER 1. Flash penetration without aspiration seen with thin liquid barium. 2. Please refer to the separately dictat ed speech pathology report for further details and recommendations. Narrative 12/14/2022 3:08 PM SHERIFFS OFFICER FULL RESULT: Examination: FL MODIFIED BARIUM SWALLO W W SPEECH, 12/14/2022 2:37 PM Clinical History: Adenoid cystic carcino ma. Indication: Evaluate swallowing function , dysphagia. Comparison: None. Technique: A modified barium swallow w as performed in conjunction with speech pathology. The patient was given barium mixed with a variety of consistencies including thin liquid, pudding, and cracker to swallow by mouth under videofluoroscopy. Findings: The oral bolus formation and transit were normal. There was no nasopharyngeal reflux. There was flash penetration without aspiration seen with thin liquid barium. There was no penetration or aspiration seen with pudding, and spring crater cker. There was no pharyngeal residue. Pharyngeal contraction was symmetric. Procedure Note Erica Miller PA - 12/14/2022Form atting of this note might be different from the original. FULL RESULT: Examination: FL MODIFIED BARIUM SWALLOW W SPEECH, 12/14/2022 2:37 PM Clinical History: Adenoid cystic carcino ma. Indication: Evaluate swallowing function , dysphagia. Comparison: None. Technique: A modified barium swallow was performed in conjunction with speech pathology. The patient was given barium mixed with a variety of consistencies including thin liquid, pudding, and cracker to swallow by mouth under videofluoroscopy. Findings: The oral bolus formation and t ransit were normal. There was no nasopharyngeal reflux. There was flash penetration without aspiration seen with thin liquid barium. There was no penetration or aspiration seen with pudding, and cracker. There was no phary ngeal residue. Pharyngeal contraction was symmetric. IMPRESSION: 1. Flash penetration without aspiration seen with thin liquid barium. 2. Please refer to the separately dictat ed speech pathology report for further details and recommendations. Travis Lopez MD IMG FLUOROSCOPY ORDERABLES (ABNORMAL) ABG Venous (12/11/2022 6:21 PM SHERIFFS OFFICER) P athologist Signature pH Raghavendra 7.40 7.32 - 7.43 [facility] Comment: Results are corrected for a bod y temp of 37C pCO2 Raghavendra 47.6 41.0 - 51.0 mmHg [facility] pO2 Raghavendra 52 mmHg [facility] HCO3 Raghavendra 29 (H) 21 - 28 mmol/L [facility] Base Excess Raghavendra 3 -2 - 3 mmol/L [facility] O2 Sat Raghavendra 87 % [facility] Specimen Anatomical Collection Method Collection Time Receive d Time (Source) Location / / Volume Laterality Blood 12/11/2022 6:21 PM 3 6:29 SHERIFFS OFFICER PM SHERIFFS OFFICER Travis Lopez MD LAB BLOOD ORDERABLES Performing Organization Address City/[facility]/ZIP Code Phon e Number [facility] Unless otherwise noted, [address] all lab tests performed by: Division of Pathology and Laboratory Medicine [address] [place] [address] Ketone Bodies Qualitative (12/11/2022 5:19 PM SHERIFFS OFFICER) athologist Signature UA Ketones NEG NEG mg/dL [facility] Specimen Anatomical Collection Method Collection Time Receive d Time (Source) Location / / Volume Laterality Urine 12/11/2022 5:19 PM 3 5:24 SHERIFFS OFFICER PM SHERIFFS OFFICER Waleska Salinas APN URINE ORDERABLES Performing Organization Address [facility]/ZIP Code Phon e Number [facility] Unless otherwise noted, [address] all lab tests performed by: Division of Pathology and Laboratory Medicine [facility]5 [facility] POC Critical (12/11/2022 3:34 PM SHERIFFS OFFICER)Only the most recent of2 resultswithin the time period is included. P athologist Signature POC Critical See Note POC [facility] Comment Comment: Test performer notified Orderin g Licensed Provider and /or designee of POC Glucose Screen critical Results.. Specimen Anatomical Collection Method Collection Time Receive d Time (Source) Location / / Volume Laterality Blood 12/11/2022 3:34 PM 3 3:34 SHERIFFS OFFICER PM SHERIFFS OFFICER Travis Lopez MD POINT OF CARE TEST ORDERABLE S Performing Organization Address City/State/ZIP Code Phon e Number POC [facility] Unless otherwise noted, [place] [address] lab tests performed by: Division of Pathology and Laboratory Medicine [address] [place] [address] (ABNORMAL) POC VBG+Lac (12/09/2022 9:36 PM SHERIFFS OFFICER) athologist Signature POC VB pH 7.46 (H) 7.31 - POC [facility] 7.41 POC VB pCO2 42 41 - 51 POC [facility] mmHg POC VB pO2 61 mmHg POC [facility] POC VB TCO2 31 (H) 24 - 29 POC [facility] mEq/L POC VB Bicarb 30 (H) 23 - 28 POC [facility] mmol/L POC VB Base Ex 5 (H) -2 - 3 POC [facility] mmol/L POC VB O2 Sat 92 % POC [facility] POC VB LAC 2.4 (H) 0.9 - 1.7 POC [facility] mmol/L Comment: Method description: The i-STAT is an augie lyzer used for in vitro quantification of various analytes in whole blood. The device uses a single disposable cartridge which contains microfabricated sensors, a calibration solution, fluidics system, and a waste chamber. Each test cartridge contains ch emically sensitive biosensors on a silicon chip that are configured to perform specific tests. The microfabricated sensors measure analyte concentration by an electrochemical assay. POC Sample Type Venous POC [facility] POC Clean Dev Yes POC [facility] Performing Lab [facility] POC [facility] R Comment: [facility], [address] [place] [address], [place] [address]; Lab Direct or: Chula Jacob MD; Waived Point of Care Testing - Gabrielle Mueller MD Specimen Anatomical Collection Method Collection Time Receive d Time (Source) Location / / Volume Laterality Blood 12/09/2022 9:36 PM 9:36 SHERIFFS OFFICER PM SHERIFFS OFFICER Roberto Carlos Walsh MD POCT ORDERABLES - DEVICE Performing Organization Address City/State/ZIP Code Phon e Number POC [facility] Unless otherwise noted, [place] [address] lab tests performed by: Division of Pathology and Laboratory Medicine [facility] Ammonia Level (12/09/2022 6:01 PM SHERIFFS OFFICER) P athologist Signature Ammonia 18 11 - 51 [facility] Specimen Anatomical Collection Method Collection Time Receive d Time (Source) Location / / Volume Laterality Blood 12/09/2022 6:01 PM 6:15 SHERIFFS OFFICER PM SHERIFFS OFFICER Tammy Mike MD LAB BLOOD ORDERABLES Performing Organization Address City/State/ZIP Code Phon e Number [facility] Unless otherwise noted, [address] all lab tests performed by: Division of Pathology and Laboratory Medicine Brian LOUIS MD, MDA CHRISTINE: Mutation Analysis Precision Panel Report (12/04/2022 10:56 AM SHERIFFS OFFICER) Specimen (Source) Anatomical Collection Method Collection Time Re ceived Time Location / / Volume Laterality 12/04/2022 10:56 AM SHERIFFS OFFICER Narrative This result has an attachment that is no t available. Lorena [facility] (MISSY GRIFFIN) Solid Tumor Genomic Assay Fusions 2018 Interpretation and Report (12/04/2022 10:56 AM SHERIFFS OFFICER) Specimen Anatomical Collection Method Collection Time Receive d Time (Source) Location / / Volume Laterality 12/04/2022 10:56 12/04/2022 AM SHERIFFS OFFICER 10:56 AM SHERIFFS OFFICER Narrative This result has an attachment that is no t available. Lorena [facility] (MISSY GRIFFIN) Molecular Diagnostics Specimen Collection -FFPE (12/04/2022 10:56 AM SHERIFFS OFFICER) Patholo gist Method Time Signature Molecular Yes [facility] (Received) [facility]ENTER Jael Ap Link [id number] [facility] Block Number BLANK [facility] (Qualitative) [facility] Outside [id number] [facility] (Qualitative) CANCER CENTER Specimen Anatomical Collection Method Collection Time Receive d Time (Source) Location / / Volume Laterality FFPE 12/04/2022 10:56 12/04/2022 AM SHERIFFS OFFICER 10:56 AM SHERIFFS OFFICER Lorena LOUIS MD NONBLOOD COLLECTIO NS Performing Organization Address City/State/ZIP Code Phon e Number [facility] Unless otherwise noted, [place], [address] all lab tests performed by: Division of Pathology and Laboratory Medicine Brian Hodges MRI Skull Base with and without Contrast (11/30/2022 11:12 AM SHERIFFS OFFICER) Anatomical Region Laterality Modality Head Magnetic Resonance Specimen (Source) Anatomical Collection Method Collection Time Re ceived Time Location / / Volume Laterality 12/01/2022 9:21 AM SHERIFFS OFFICER Impressions 12/01/2022 1:06 PM SHERIFFS OFFICER 1. 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 2. Tumor likely involves the lesser wi ng of the left sphenoid bone. 3. No lateral retropharyngeal or visua lized cervical adenopathy. Narrative 12/01/2022 1:06 PM SHERIFFS OFFICER FULL RESULT: Examination: MRI SKULL BASE WITH [...] retropharyngeal or visuali zed cervical adenopathy. Lorena Hdez [facility] IM MRI ORDERABLES PETCT Contrast Enhanced Initial Treatment Strategy (11/27/2022 3:57 PM SHERIFFS OFFICER) Anatomical Region Laterality Modality Whole Body Positron Emission To mography (PET) Specimen (Source) Anatomical Collection Method Collection Time Re ceived Time Location / / Volume Laterality 11/30/2022 8:31 AM SHERIFFS OFFICER Impressions 11/30/2022 8:38 AM SHERIFFS OFFICER Subtle activity associated with subtle asymmetric fullness in posterior left nasal pharynx is compatible with reported primary tumor. No suspicious activity to suggest regional jeremiah or distant metastases. Narrative 11/30/2022 8:38 AM SHERIFFS OFFICER FULL RESULT: Examination: Contrast-Enhanced FDG PET /CT, [...] distant metastases. Lindy GALE IMG PETCT ORDERABLES MD YUN Blood Control (11/26/2022 1:07 PM SHERIFFS OFFICER) athologist Signature Molecular Yes [facility] (Received) Specimen Anatomical Collection Method Collection Time Receive d Time (Source) Location / / Volume Laterality Blood 11/26/2022 1:07 PM 3 SHERIFFS OFFICER 9:13 AM SHERIFFS OFFICER Lorena PEDERSONP [facility] MOLECULAR DIAG IF ORDERABLES Performing Organization Address City/State/ZIP Code Phon e Number [facility] CANCER Unless otherwise noted, [place] [address] [place] all lab tests performed by: Division of Pathology and Laboratory Medicine [address] (ABNORMAL) Vitamin D 25OH (11/26/2022 1:07 PM SHERIFFS OFFICER) athologist Signature Vitamin D 25 OH 21 (L) 30 - 100 [place] ng/mL Comment: Reference Range: Deficiency: <10 ng/mL Insufficiency: 10-29 ng/mL Sufficiency: 30-100 ng/mL Potential toxicity: >100 ng/mL Testing performed at [facility], [address] [place] [address] Specimen Anatomical Collection Method Collection Time Receive d Time (Source) Location / / Volume Laterality Blood 11/26/2022 1:07 PM 3 1:19 SHERIFFS OFFICER PM SHERIFFS OFFICER Lorena Hdez [employer] LAB BLOOD ORDERABLES Performing Organization Address City/[facility]/ZIP Code Phon e Number [address] (ABNORMAL) Uric Acid (11/26/2022 1:07 PM SHERIFFS OFFICER) athologist [facility] Uric Acid 6.5 (H) 2.4 - 5.7 [place] mg/dL Comment: Testing performed at [facility], [address] [place] [address] Specimen Anatomical Collection Method Collection Time Receive d Time (Source) Location / / Volume Laterality Blood 11/26/2022 1:07 PM 3 1:19 SHERIFFS OFFICER PM SHERIFFS OFFICER Lorena Hdez [employer] SWE[employer] P[employer] LAB BLOOD ORDERABLES Performing Organization Address City/[facility]/ZIP Code Phon e Number [address] TSH (11/26/2022 1:07 PM SHERIFFS OFFICER)Only the most recent of2 resultswithin the time period is included. athologist Signature TSH 1.78 0.27 - 4.20 [place] mcunit/mL Comment: Testing performed at [facility], [address] [place] [address] Specimen Anatomical Collection Method Collection Time Receive d Time (Source) Location / / Volume Laterality Blood 11/26/2022 1:07 PM 3 1:19 SHERIFFS OFFICER PM SHERIFFS OFFICER Lorena Hdez [employer] LAB BLOOD ORDERABLES Performing Organization Address City/State/ZIP [place] [address] [place] [address] Free T4 (11/26/2022 1:07 PM SHERIFFS OFFICER)Only the most recent of2 resultswithin the time period is included. athologist Signature T4 Free 1.11 0.93 - 1.70 [place] ng/dL Comment: [facility] [address] [place] [address] Specimen Anatomical Collection Method Collection Time Receive d Time (Source) Location / / Volume Laterality Blood 11/26/2022 1:07 PM 1:19 SHERIFFS OFFICER PM SHERIFFS OFFICER Lorena CHAPMAN LAB BLOOD ORDERABLES Performing Organization Address City/[facility] Phon e Number [place], [place] [id number] [place] [address] NTRK3 Fusion Material Request (11/26/2022 12:43 PM SHERIFFS OFFICER) Component Value Ref Test Analysis Performed At [facility] gist Range Method Time Signature Archived The test is to be 12/04/2022 [facility] Material performed on 8:01 AM SHERIFFS OFFICER tissue from case [id number]. The case report, slides, and blocks for [...] Volume Laterality Tissue 11/26/2022 12:43 11/26/2022 PM SHERIFFS OFFICER 12:43 PM SHERIFFS OFFICER Lorena CHAPMAN [facility] IP AP BIOMARKERS Performing Organization Address City/[facility]/ZIP Code Phon e Number [facility] [place] [address] [address] MD NTRK2 Fusion Material Request (11/26/2022 12:43 PM SHERIFFS OFFICER) Component Value Ref Test Analysis Performed At [facility] [employer] Range Method Time Signature Archived The test is to be 12/04/2022 [facility] Material performed on 8:01 AM SHERIFFS OFFICER tissue from case [id number]. The case report, slides, and blocks for [...] Volume Laterality Tissue 11/26/2022 12:43 11/26/2022 PM SHERIFFS OFFICER 12:43 PM SHERIFFS OFFICER Lorena [facility] IP AP BIOMARKERS Performing Organization Address [facility] Phon e Number [place] [address] [address] MD NTRK1 Fusion Material Request (11/26/2022 12:43 PM SHERIFFS OFFICER) Component Value Ref Test Analysis Performed At [facility] [employer] Range Method Time Signature Archived The test is to be 12/04/2022 [facility] Material performed on 8:01 AM SHERIFFS OFFICER tissue from case [id number]. The case report, slides, and blocks for [...] Volume Laterality Tissue 11/26/2022 12:43 11/26/2022 PM SHERIFFS OFFICER 12:43 PM SHERIFFS OFFICER Lorena CHAPMAN [facility] IP AP BIOMARKERS Performing Organization Address [facility] Phon e Number [place] [address] [address] MD ERBB2 Mutation Analysis Material Request (11/26/2022 12:43 PM SHERIFFS OFFICER) Component Value Ref Test Analysis Performed At [facility] Method Time Signature Archived The test is to be 12/04/2022 [facility] Material performed on 8:01 AM SHERIFFS OFFICER tissue from case [id number]. The case report, slides, and blocks for [...] Volume Laterality Tissue 11/26/2022 12:43 11/26/2022 PM SHERIFFS OFFICER 12:43 PM SHERIFFS OFFICER Lorena Hdez [facility] AP BIOMARKERS Performing Organization Address City/State/ZIP Code Phon e Number [facility] [place] [address] [address] MD ALK Mutation Analysis Material Request (11/26/2022 12:43 PM SHERIFFS OFFICER) Component Value Ref Test Analysis Performed At [facility] Method Time Signature Archived The test is to be 12/04/2022 [facility] Material performed on 8:02 AM SHERIFFS OFFICER tissue from case [id number]. The case report, slides, and blocks for [...] Volume Laterality Tissue 11/26/2022 12:43 11/26/2022 PM SHERIFFS OFFICER 12:43 PM SHERIFFS OFFICER Lorena Kayla Hdez [facility] IP AP BIOMARKERS Performing Organization Address City/[facility]/ZIP Code Phon e Number [place] [address] [address] MD MTOR Mutation Material Request (11/26/2022 12:43 PM SHERIFFS OFFICER) Component Value Ref Test Analysis Performed At [facility] Method Time Signature Archived The test is to be 12/04/2022 [facility] Material performed on 8:01 AM SHERIFFS OFFICER tissue from case [id number]. The case report, slides, and blocks for [...] Volume Laterality Tissue 11/26/2022 12:43 11/26/2022 PM SHERIFFS OFFICER 12:43 PM SHERIFFS OFFICER Lorena Kayla Hdez [facility] IP AP BIOMARKERS Performing Organization Address City/[facility]/ZIP Code Phon e Number [place] [address] [address] MD PTEN Mutation Material Request (11/26/2022 12:43 PM SHERIFFS OFFICER) Component Value Ref Test Analysis Performed At [facility] Method Time Signature Archived The test is to be 12/04/2022 [facility] Material performed on 8:02 AM SHERIFFS OFFICER tissue from case [id number]. The case report, slides, and blocks for [...] Volume Laterality Tissue 11/26/2022 12:43 11/26/2022 PM SHERIFFS OFFICER 12:43 PM SHERIFFS OFFICER Lorena Hdez [facility] IP AP BIOMARKERS Performing Organization Address City/[facility]/ZIP Code Phon e Number [place] [address] [address] MD EGFR Mutation Material Request (11/26/2022 12:43 PM SHERIFFS OFFICER) Component Value Ref Test Analysis Performed At [facility] gist Range Method Time Signature Archived The test is to be 12/04/2022 [facility] Material performed on 8:02 AM SHERIFFS OFFICER tissue from case [id number]. The case report, slides, and blocks for [...] Signature signed by Larissa March 8:02 AM SHERIFFS OFFICER MD Mitchell on 12/04/22 8:01 AM Specimen Anatomical Collection Method Collection Time Receive d Time (Source) Location / / Volume Laterality Tissue 11/26/2022 12:43 11/26/2022 PM SHERIFFS OFFICER 12:43 PM SHERIFFS OFFICER Lorena Hdez [facility] IP AP BIOMARKERS Performing Organization Address City/[facility]/ZIP Code Phon e Number [place] [address] [address] IHC PD-L1 Material Request (11/26/2022 12:43 PM SHERIFFS OFFICER) Specimen Anatomical Collection Method Collection Time Receive d Time (Source) Location / / Volume Laterality Tissue 11/26/2022 12:43 11/26/2022 PM SHERIFFS OFFICER 12:43 PM SHERIFFS OFFICER Lorena Hdez [facility] IP AP BIOMARKERS Performing Organization Address City/State/ZIP Code Phon e Number [place] [address] [address] IHC HER2/arcenio Material Request (11/26/2022 12:43 PM SHERIFFS OFFICER) Specimen Anatomical Collection Method Collection Time Receive d Time (Source) Location / / Volume Laterality Tissue 11/26/2022 12:43 11/26/2022 PM SHERIFFS OFFICER 12:43 PM SHERIFFS OFFICER Lorena Garza Lemuel HELMET HAT SWEATBAND PUNCHER [facility] IP AP BIOMARKERS Performing Organization Address City/State/ZIP Code Phon e Number [facility] [place] [address] 1515 [facility] Insulin-Like Growth Factor I (11/17/2022 12:11 PM SHERIFFS OFFICER) [facility] Insulin-Like 154 40 - 217 [facility] Growth Factor ng/mL [facility] [place] IGF Z-score 1.04 -2.0 - 2.0 [facility] Comment: ADDITIONAL INFORMATIO N This test was developed and its performa nce characteristics determined by [facility] in a manner co nsistent with CLIA requirements. This test has not been sisi ared or approved by the U.S. Food and Drug Administration. Test Performed by: [facility] [address] [address] [employer] [address] Joiner: Yonathan Guzman M.D. Ph. D.; CLIA# [id number] Specimen Anatomical Collection Method Collection Time Receive d Time (Source) Location / / Volume Laterality Blood 11/17/2022 12:11 11/17/2022 PM SHERIFFS OFFICER 12:13 PM SHERIFFS OFFICER Red Berman 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 LAB BLOOD ORDERABLES Performing Organization Address City/[facility]/ZIP [facility] Phon e Number [facility] CANCER Unless otherwise noted, [place] [address] CENTER all lab tests performed by: Division of Pathology and Laboratory Medicine [address] [facility] (ABNORMAL) ACTH (11/17/2022 12:11 PM SHERIFFS OFFICER) [facility] ACTH 5 (L) 7 - 63 pg/mL [place] Comment: Results greater than 1826 pg/mL may not be reliable due to matrix effect with extended dilution as it exceeds the train inspector's recommended limit. ACTH reference intervals are established for the morni ng hours from 7-10 am. Due to the circad katie rhythm of ACTH levels in plasma, the sample col lection time must be noted. Caution should be exercised when interpreting such values and done in conjunction with clinical context. [facility], [address] [place] [address] Specimen Anatomical Collection Method Collection Time Receive d Time (Source) Location / / Volume Laterality Blood 11/17/2022 12:11 11/17/2022 PM SHERIFFS OFFICER 12:12 PM SHERIFFS OFFICER Narrative [place] - 11/17/2022 12:53 PM SHERIFFS OFFICER This lab cannot be scheduled at the following locations due to collection/proccessing restrictions: [place] - REGLC DIAG LAB CTR [place] - REGSL DIAG LAB CTR [facility] REGWL DIAG LAB CTR [facility] REGWH DAIG LAB CTR [facility] DIAG LAB CTR [place] [facility] DIAG LAB CTR Red Berman APN LAB BLOOD ORDERABLES Performing Organization Address City/[facility] Code Phon e Number [place], [place] [phone] [place] [address] Prolactin (11/17/2022 12:11 PM SHERIFFS OFFICER) athologist Signature Prolactin 9.3 4.8 - 23.3 [facility] ng/mL CANCER CENTER Comment: Results greater than 4700.0 ng/ mL may not be reliable due to matrix effect with extended dilution as it exceeds the train inspector s recommended limit. Caution should be e xercised when interpreting such values and done in conjunction with clinical contex t. Specimen Anatomical Collection Method Collection Time Receive d Time (Source) Location / / Volume Laterality Blood 11/17/2022 12:11 11/17/2022 7:44 PM SHERIFFS OFFICER PM SHERIFFS OFFICER Red Berman APN LAB BLOOD ORDERABLES Performing Organization Address City/State/[facility] Code Phon e Number [facility] CANCER Unless otherwise noted, [place] [address] [place] all lab tests performed by: Division of Pathology and Laboratory Medicine Brian Hodges Estradiol level (11/17/2022 12:11 PM SHERIFFS OFFICER) athologist Signature Estradiol <11 pg/mL [facility] Comment: Reference Ranges: Adult Females: Follicular Phase [...] Laterality Blood 11/17/2022 12:11 11/17/2022 7:44 PM SHERIFFS OFFICER PM SHERIFFS OFFICER Red Berman APN LAB BLOOD ORDERABLES Performing Organization Address City/State/ZIP Code Phon e Number [facility] CANCER Unless otherwise noted, [address] all lab tests performed by: Division of Pathology and Laboratory Medicine [facility] T3 (11/17/2022 12:11 PM SHERIFFS OFFICER) athologist Signature T3 Total 88 80 - 200 [facility] ng/dL Comment: Performed at [facility], [address] [place] [address] Specimen Anatomical Collection Method Collection Time Receive d Time (Source) Location / / Volume Laterality Blood 11/17/2022 12:11 11/17/2022 PM SHERIFFS OFFICER 12:12 PM SHERIFFS OFFICER Red Berman APN LAB BLOOD ORDERABLES Performing Organization Address City/[facility]/ZIP [facility] Phon e Number [facility] [place], [place] [address] [place] [address] Testosterone Level (11/17/2022 12:11 PM SHERIFFS OFFICER) athologist Signature Testoster Tot <3 3 - 41 [place] ng/dL Comment: Reference Ranges: Male: Age 20 - 49 249 - 836 Age >=50 1 93 - 740 Female: Age 20 - 49 8 - 48 Age >=50 3 - 41 Testing performed at [facility], [address] [place] [address] Specimen Anatomical Collection Method Collection Time Receive d Time (Source) Location / / Volume Laterality Blood 11/17/2022 12:11 11/17/2022 PM SHERIFFS OFFICER 12:12 PM SHERIFFS OFFICER Red Berman APN LAB BLOOD ORDERABLES Performing Organization Address City/[facility] [place] [address] [address] [facility] LH (11/17/2022 12:11 PM SHERIFFS OFFICER) athologist Signature LH 15.8 mIU/mL [facility] Comment: Female Luteinizing Hormone Reference Ran ges: LOW HIGH Follicular 2.4 12.6 Ovulation 14.0 95.6 Luteal 1.0 11.4 Postmenopause 7.7 58.5 Specimen Anatomical Collection Method Collection Time Receive d Time (Source) Location / / Volume Laterality Blood 11/17/2022 12:11 11/17/2022 7:44 PM SHERIFFS OFFICER PM SHERIFFS OFFICER Red Berman APN LAB BLOOD ORDERABLES Performing Organization Address City/[facility]/ZIP Code Phon e Number [facility] CANCER Unless otherwise noted, [address] all lab tests performed by: Division of Pathology and Laboratory Medicine [address] [place] FSH Level (11/17/2022 12:11 PM SHERIFFS OFFICER) athologist Signature FSH 31.4 mIU/mL [facility] Comment: Female Follicle Stimulating Hormone Refe rence Ranges: L OW HIGH Follicular 3.5 12.5 Ovulation 4.7 21.5 Luteal 1.7 7.7 Postmenopause 25.8 134.8 Specimen Anatomical Collection Method Collection Time Receive d Time (Source) Location / / Volume Laterality Blood 11/17/2022 12:11 11/17/2022 7:44 PM SHERIFFS OFFICER PM SHERIFFS OFFICER Red Berman APN LAB BLOOD ORDERABLES Performing Organization Address City/State/ZIP Code Phon e Number [facility] CANCER Unless otherwise noted, [address] all lab tests performed by: Division of Pathology and Laboratory Medicine [address] [place] (ABNORMAL) Cortisol, Total (11/17/2022 12:11 PM SHERIFFS OFFICER) athologist Signature Cortisol, 1.67 (L) 4.80 - [place] Total 19.50 mcg/dL Comment: Cortisol reference intervals are [...] (4-8pm) (2.5 - 11.9) Testing performed at [facility], [address] [place] [address] Specimen Anatomical Collection Method Collection Time Receive d Time (Source) Location / / Volume Laterality Blood 11/17/2022 12:11 11/17/2022 PM SHERIFFS OFFICER 12:12 PM SHERIFFS OFFICER Red Berman 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 LAB BLOOD ORDERABLES Performing Organization Address City/State/ZIP Code Phon e Number [facility] [place] [address] [place] [address] Pathology Outside Interpretation (10/16/2022) Component Value Ref Test Analysis Performed Pathologis t Range Method Time At Signature Materials Accession#, Stained, Block, Unstained Collected Received 11/27/2022 [facility] Received A. [id number], 7 SS, 1 BLOCKS, 0 USS 10/16/2022 11/24/2022 5:08 PM SHERIFFS OFFICER Addendum 1 At the request of the donell physician the following studies were performed and interpreted at [facility]. 11/27/2022 [facility] Addendum 5:08 PM electronic ally The tumor cells are negative for Her2 (0%) by immunohi stochemical analysis. 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 MD Gerald on 11/27/2022 at PD-L1 (Clone 22C3, [employer]) Combine d Positive Score (CPS): is less than 1 5:08 PM Assay Information: This assa y is manufactured by [employer] and uses a monoclonal anti-PD-L1, clone 22C3. It is performed on formalin-fixed paraffin- embedded tissue using an [employer] Dako autostainer a nd polymer based detection k it, as specified by the train inspector. It is approved for use as a accounting machine servicer diagnostic for specific therapies on certain tumor [...] is defined as CPS 100. Diagnosis Outside ([id number], 7 SS, 1 BLOCKS, 0 USS, colle cted on 10/16/2022): 11/27/2022 [facility] Electronically 5:08 PM signed by Nasopharynx, biopsy: SHERIFFS OFFICER Ashleigh ADENOID CYSTIC CARCINOMA, CRIBRIFORM TYPE see comment MD Gerald on 11/26/2022 at EARL/SALEEM 9:43 AM Comment Submitted 11/27/2022 [facility] immunohistochemical 5:08 PM stains performed by SHERIFFS OFFICER referring institution show that CK7 highlights the epithelial cells, and p63 and p40 highlights the myoepithelial cells. The morphology and immunophenotype is supportive of this classification. Biomarker Tumor block: 11/27/2022 [facility] Block(s) [id number] 5:08 PM SHERIFFS OFFICER Disclaimer "Some tests reported 11/27/2022 [facility] here may have been 5:08 PM developed and SHERIFFS OFFICER performance characteristics determined by [facility] Pathology and Laboratory Medicine. These tests have not been specifically cleared or approved by the U.S. Food and Drug Administration. If applicable, controls were reviewed and showed appropriate reactivity." Specimen (Source) Anatomical Collection Method Collection Time Re ceived Time Location / / Volume Laterality Tissue 10/16/2022 11/24/2022 3:02 PM SHERIFFS OFFICER Alexa Alvarez MD LAB PATHOLOGY ORDERABLES Performing Organization Address City/State/ZIP Code Phon e Number [facility] AP LABS [facility] [place] [address] [address] [place] after 03/14/2022 Insurance Payer Benefit Plan / Subscriber ID Effective Phone Address T ype Group Dates MEDICARE MEDICARE PART A [id number] 2010-Pres [phone] [place]OV[place] Medicare AND B ent [id number] SOLUTIONS [address] [facility] BALJINDER [place]ARTIN[place] [id number] [place] [id number] 2022-Pres [address] Medicaid TRADITIONAL TRADITIONAL ent [id number] [place] [address] Advance Directives Code Status Date Activated Date Inactivated Comments Full Code 02/06/2023 1:33 AM 02/16/2023 6:41 PM Code Status Date Activated Date Inactivated Comments Full Code 01/26/2023 5:50 PM 02/01/2023 8:34 PM Full Code 01/11/2023 10:19 PM 01/18/2023 9:39 PM Full Code 12/09/2022 10:42 PM 12/15/2022 9:30 PM Care 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 Relationship Specialty Start Date End Date Bina Obando PCP - External Otolaryngology 11/12/22 MD Joana Referring [address] [place] [phone] Kenya Agarwal MD PCP - General Head and Neck Surgery 11/12/[address] [place] [address] [phone] Trent Irving MD Family Practice 11/26/[address] [place], [place] [address] Randall Sheriff Family Practice 11/26/22 MD Maciej [address] [place], [place] [phone] Vignesh Waddell, Pulmonary Medicine 11/26/[address] [place] [address] Naa Miller, Cardiology 11/26/[email or web address] [place] [address] Tapan Harper, Gastroenterology 11/26/22 [address] [place] [address] Rafael Rosas, Ophthalmology 11/26/22 [address] [place] [phone] Suzanne Mcgrath MD Consulting Physician Ophthalmology 12/29/[address] [place] [address]
[2023-03-14] MEDS ORDERED: ONDANSETRON 4 MG/2 ML VIAL ONE (08:25)
[2023-03-14] MEDS ORDERED: HYDROMORPHONE HCL 1 MG/ML INJ ONE (08:25)
[2023-03-14] MEDS ORDERED: NA CHLORIDE 0.9% 500 ML ONE (08:25)
[2023-03-14 08:37] LABS: Absolute Lymphocytes (CBC) 1.8 K/uL (0.7-4.9); Hematocrit 44.5 % (36.0-45.0); MPV 8.7 fL (7.6-11.3); RBC Red Blood Cell Count 4.63 M/uL (3.86-4.86)
[2023-03-14 08:56] LABS: Albumin 3.8 g/dL (3.4-5.0); Bilirubin Total 0.3 mg/dL (0.2-1.0); Potassium 3.9 mEq/L (3.5-5.1); Protein, Total 8.2 g/dL (6.4-8.2)
--- OUTSIDE RECORDS SUMMARY | 2023-03-14 08:57 | XMS REPORT | Continuity of Care Document ---
:1965 Author Organization [facility] t Address [address] [place] [address] Care Team Providers Name Role Phone JARON IRVING Primary Care Physician Unavailable SYSTEM, PROVIDER NOT IN Attending Clinician Unavailable Tapan Harper Attending Clinician Unavailable Zacarias Rodriguez Attending Clinician Unavailable Kenya Agarwal MD Attending Clinician Lian Jaramillo RD Attending Clinician KENYA AGARWAL Attending Clinician Unavailable Lorena Chance Attending Clinician LORENA HDEZ Attending Clinician Unavailable Deyanira Wright RN Attending Clinician Unavailable Miguel Snyder MD Attending Clinician Tita Kwon RN Attending Clinician Unavailable Vaibhav Rosario MD Attending Clinician VAIBHAV ROSRAIO Attending Clinician Unavailable Tryell MORENO, Cony Attending Clinician MIGUEL SNYDER Attending Clinician Unavailable Jaziel GRIFFIN, Nereida Attending Clinician Tonny GARBER, Anthony Benjamin Attending Clinician Unavailable MEG GRACE Attending Clinician Unavailable Ismael GRIFFIN, Deneen Eckert Attending Clinician Rachid GRIFFIN, Felisa Attending Clinician Brooks GRIFFIN, Romana Attending Clinician Esthela GRIFFIN, Amanda Attending Clinician Estella GRIFFIN, Thao Calix. Attending Clinician Bridget GRIFFIN, Derrick Attending Clinician Trinidad GRIFFIN, Kofi Vega Attending Clinician [phone] Phyllis Rangel MD, Meg Attending Clinician [phone] KOFI ABDI Attending Clinician Unavailable WINTER LUU Attending Clinician Unavailable Jus GRIFFIN, Winter Rubalcava Attending Clinician Teo GRIFFIN, Dustin Attending Clinician Will [facility] INSTRUCTOR, Charla Eckert Attending Clinician DERRICK GILL Attending Clinician Unavailable THAO ROMERO V. Attending Clinician Unavailable ELIAN ONEAL Attending Clinician Unavailable Jad Patel MD Attending Clinician Jaycee Hancock MD Attending Clinician Brock Agrawal MD Attending Clinician Elian Oneal MD Attending Clinician [phone] Glenda Madrigal NP Attending Clinician Jonathan GARBER, Felisa Costa Attending Clinician JAYCEE HANCOCK Attending Clinician Unavailable ROGERIO CALIXTO Attending Clinician Unavailable Williams GRIFFIN, Rogerio Attending Clinician [phone] Nereida Ferrer Attending Clinician Unavailable NEREIDA SHERIFF Attending Clinician Unavailable BROCK AGRAWAL Attending Clinician Unavailable Regulo GRIFFIN, Reva Attending Clinician Nico GRIFFIN, Roberto Carlos Attending Clinician Estella GRIFFIN, Chung Garcia Attending Clinician [phone] Lee MCMAHAN, Agus Attending Clinician RADIOLOGY Attending Clinician Unavailable Sherif [facility] INSTRUCTOR, Mukund Cervantes Attending Clinician [phone] Meche GRIFFIN, Kamille Attending Clinician Geo GARBER, Brittni Benjamin Attending Clinician Unavailable SUZANNE CORONA Attending Clinician Unavailable Alcides GRIFFIN, Suzanne Attending Clinician OTILIA CARDENAS Attending Clinician Unavailable Ankita ROSALES, Otilia Attending Clinician Dony Calhoun MA Attending Clinician Lan GALE, Lindy Weaver Attending Clinician [phone] Maria Luz Cochran RN Attending Clinician Unavailable Alok MEDINA, Rosmery Costa Attending Clinician KAMILLE MCGREGOR Attending Clinician Unavailable Mer Milian MD Attending Clinician Graciela Adorno MD Attending Clinician Jessica GRIFFIN, Travis Attending Clinician RON BAI Attending Clinician Unavailable FAREED DAVIS Attending Clinician Unavailable Dawson OROZCO, Maya Attending Clinician Wilder Soliz MD Attending Clinician Unavailable Jason GARBER, Triston Rollins Attending Clinician Unavailable Matthew Benitez MD Attending Clinician [phone] Red Posada APN Attending Clinician LINDY ANTONY Attending Clinician Unavailable Louis MEDINA, Tracey Attending Clinician Enrqiue GRIFFIN, David Alvarado Attending Clinician Antonio GRIFFIN, Alexa Attending Clinician Jeffy RN, Ofe T Attending Clinician Olivier GRIFFIN, Berkley Attending Clinician Unavailable Mateusz GARBER, Elana Attending Clinician Doctor Unassigned, Weiser Attending Clinician Unavailable RDE POSADA Attending Clinician Unavailable Chloe Lopez L Attending Clinician Kayden GRIFFIN, Lee Mathis Attending Clinician Lab, Ang - Len Attending Clinician Unavailable CHINMAY OLSEN Attending Clinician Unavailable BLANCHE OSORIO Attending Clinician Unavailable Jo SPECIAL AGENTBlanche Attending Clinician Pob, Adc Lab Main Attending Clinician Unavailable LOBITO RAI Attending Clinician Unavailable Angelica Mathis MD Attending Clinician Angelica MATHIS Attending Clinician Unavailable Angelica MATHIS Attending Clinician Unavailable GERMAIN CALERO Attending Clinician Unavailable DEWAYNE WISE Attending Clinician Unavailable Aguilar_M Attending Clinician Unavailable JACQUELIN GONZALEZ Attending Clinician Unavailable Lacy VERNON, Jacquelin Alvarado Attending Clinician Dewayne Wise MD Attending Clinician DEWAYNE WISE Attending Clinician Unavailable Rigo GRIFFIN, Adam Gutierrez Attending Clinician Rishabh GRIFFIN, India Kellogg Attending Clinician [phone] Germain Ortega Attending Clinician Luan Coughlin MD Attending Clinician Mimi Attending Clinician [...] Attending Clinician PABLO INTERIANO Attending Clinician Unavailable LUAN COUGHLIN Attending Clinician Unavailable MOE ELIZALDE Attending Clinician Unavailable Brigida Avilez Attending Clinician Almita Ny MD Attending Clinician ALMITA NY Attending Clinician Unavailable KEN IRWIN Attending Clinician Unavailable TRAVIS RAMIREZ Attending Clinician Unavailable James GRIFFIN, Travis Attending Clinician ZACARIAS RODRIGUEZ Attending Clinician Unavailable John Casiano Attending Clinician Kimberly Ng Attending Clinician Alexa Guerrero Attending Clinician Jaron Irving H Admitting Clinician Unavailable THAO ROMERO V. Admitting Clinician Unavailable JAYCEE HANCOCK Admitting Clinician Unavailable CHUNG ROMERO Admitting Clinician Unavailable GRACIELA ADORNO Admitting Clinician Unavailable AgjinaM Admitting Clinician Unavailable JACQUELIN GONZALEZ Admitting Clinician Unavailable DEWAYNE WISE Admitting Clinician Unavailable Mimi Admitting Clinician Unavailable ZACARIAS RODRIGUEZ Admitting Clinician Unavailable Alexa Guerrero Admitting Clinician Payers Payer Name Policy Type Policy Number Effective Date Expiration Date Annette carlos MEDICARE PART A [id number] 2010 \\T\\ B 00:00:00 [facility] [id number] 2012 00:00:00 [place] B[place]: [id number] 2010 Snap Trends 00:00:00 [place] [id number] [place] Problems Condition Condition Condition Status Onset Resolution Last Treating Co mments Source Name Details Category Date Date Treatment Clinician Date Febrile Febrile Disease Active Univers neutropeni neutropeni 4-08 it y of a a 00:00: [place] 00 MD Liane olivier [facility] Shortness Shortness Disease Active Uni vers of breath of breath 4-08 ity of 00:00: [place] 00 MD Liane olivier [facility] Central Central Disease Active Univers line line 4-08 ity of associated associated 00:[place] bloodstrea bloodstrea 00 MD napoleon Rob infection infection [facility] Disorder Disorder Disease Active Unive rs of fluid of fluid 4-08 ity of AND/OR AND/OR 00:00: [place] electrolyt electrolyt 00 [facility] 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 00:[place] openia openia 00 MD Liane olivier [facility] Intractabl Intractabl Disease Active U nivers e nausea e nausea 4-07 ity of and and 00:00: [place] vomiting vomiting 00 MD Rob [facility] Hematochez Hematochez Disease Active U nivers ia ia 3-29 ity of 00:00: [place] 00 MD Rob [facility] Abdominal Abdominal Disease Active Uni vers pain, pain, 3-28 ity of epigastric [place] Liane [place]ivier [facility] 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 00:00: [place] eulalio tsai 00 malnutriti malnutriti An derso on on [facility] Insulin Insulin Disease Active Univers resistance resistance 3-20 it y of 00:00: [place] 00 MD Rob [facility] History of History of Disease Active U nivers fall fall 3-14 ity of 00:00: [place] 00 MD Rob [facility] 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 00:00: [place] with with 00 hyperglyce hyperglyce An [facility] Hemoglobin Hemoglobin Disease Active U nivers A1c A1c 3-14 ity of greater greater 00:00: [place] than 10 than 10 00 percent percent [place] indicating indicating n poor poor Cancer diabetic diabetic Center control control Malnutriti Malnutriti Disease Active U nivers on of on of 3-14 ity of moderate moderate 00:00: [place] degree degree 00 MD Liane olivier [facility] Mucositis Mucositis Disease Active Uni vers due to due to 3-13 ity of antineopla [place]ineopla [place] stic stic 00 therapy [facility] Swallowing Swallowing Disease Active U nivers painful painful 3-13 ity of 00:00: [place] 00 MD Liane olivier [facility] [employer]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 2-09 ity of use of use of 00:00: [place] systemic systemic 00 steroid steroid [facility] Current Current Disease Active Univers use of use of 2-09 ity of insulin insulin 00:00: [place] 00 MD Liane olivier [facility] Adverse Adverse Disease Active Univers effect of effect of 2-09 ity of glucocorti glucocorti [place] coids and coids and 00 synthetic synthetic Bandar rso analogues analogues [facility] Headache Headache Disease Active Unive rs 2-08 ity of 00:00: [place] 00 MD Liane olivier [facility] 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 00:[place] of of 00 nasopharysoy nasopharysoy An derso x, NOS x, NOS n [facility] SOB SOB Disease Active 2021-11 Univers (shortness (shortness 0-25 it y of of breath[place] of breath[place] [facility] New daily New daily Disease Active 2021-11 Uni vers persistent persistent 0-25 it y of headache headache 00:00: [place] 00 [facility] Dizziness Dizziness Disease Active 2021-11 Uni vers 0-25 ity of 00:00: [place] 00 [facility] Wheezing Wheezing Disease Active 2021-11 Unive rs 0-25 ity of 00:00: [place] 00 [facility] Diabetes Diabetes Problem Active 2021-1 [place] ge mellitus Mellitus 0-21 Family 00:00: [...] y of on on 00:00: [place] 00 MD [facility] 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 Gastroesop Gastroesop Disease Active U nivers hageal hageal 07-28 ity of reflux reflux 00:00: [place] disease disease 00 MD [facility] Other Other Disease Active Univers hyperlipid hyperlipid 07-28 it y of emia emia 00:00: [place] 00 MD [facility] Chest pain Chest pain Disease Active U [...] 13:34:00 l Active 00:00: [place] 03/30/2018 00 Yossi Seay REFLUX-K21 REFLUX-K2 Diagnosis Active 2014-112015-11-08 Memoria .9 1.9 Active 12-19 12:57:00 l 10/18/2015 00:00: [place] olivier [place] ACS (acute ACS (acute Disease Active U nivers coronary coronary 3-16 ity of syndrome) syndrome) 00:00: [place] 00 [facility] Cough Cough Problem Resolve 2019-06-28 [place] radha (finding) (finding) d 15:29:48 l Resolved [place] Problem 06/28/2019 2 weeks ago,, cough, cold , flu; better now [facility], [place] Infection Infection Problem Resolve 2019-06-28 Memoria of ear of ear d 15:29:48 l (disorder) (disorder) He rmann Resolved Problem 06/28/2019 [facility], [place] Irregular Problem Resolve 2019-06-28 M emoria heart beat Irregular d 15:29:48 l (finding) heart beat Her pascal (finding) Resolved Problem 06/28/2019 [facility], [facility], [place] Muscle Muscle Problem Resolve 2019-06-28 Mem oria pain pain d 15:29:48 l (finding) (finding) Herm flakita Resolved Problem 06/28/2019 [facility], [place] Anxiety Anxiety Problem Active 2019-06-28 Me moria (finding) (finding) 15:29:48 l Active [place] [facility] [place] Backache Backache Problem Active 2019-06-28 Memoria (finding) (finding) 15:29:48 l Active [place] Problem 06/28/2019 [facility], [place] Gout Gout Problem Active 2019-06-28 Memor ia (disorder) (disorder) 15:29:48 l Active [place] Problem 06/28/2019 [facility], [place] Hypertensi Hypertens Problem Active 2019-06-28 Memoria ve rosales 15:29:48 l disorder, disorder, Herm flakita systemic systemic arterial arterial (disorder) (disorder) Active Problem 06/28/2019 [facility], [facility], [place] Insomnia Insomnia Problem Active 2019-06-28 Memoria (disorder) (disorder) 15:29:48 l Active [place] Problem 06/28/2019 [facility], [facility] Monoparesi Problem Active 2019-06-28 M emoria s - leg Monoparesi 15:29:48 l (disorder) s - leg [place] nn (disorder) Active Problem 06/28/2019 [facility], [place] Lumbar Lumbar Problem Active 2019-06-28 [place] radha radiculopa radiculopa 15:29:48 l thy thy [place] (disorder) (disorder) Active Problem 06/28/2019 [facility] Neuro Osteoarthr Osteoarth Problem Active 2019-06-28 Memoria itis ritis 15:29:48 l (disorder) (disorder) He rmann Active Problem 06/28/2019 [facility] Peripheral Periphera Problem Active 2019-06-28 Memoria nerve l nerve 15:29:48 l disease disease [place] (disorder) (disorder) Active Problem 06/28/2019 [facility] Sleep Sleep Problem Active 2019-06-28 Memor ia apnea apnea 15:29:48 l (finding) (finding) Herm flakita Active Problem 06/28/2019 [facility] Cholestero Cholester Problem Active 2015-11-11 Memoria l ol 01:38:42 l (substance (substance He rmann ) ) Active Problem 11/11/2015 [place] GASTRO-ESO GASTRO-ES Diagnosis Active 2015-11-08 Memoria PHAGEAL OPHAGEAL 12:57:00 l REFLUX REFLUX [place] DISEASE DISEASE WITHOUT WITHOUT Active [place] No known No known Disease [facility] r active active College problems problems of Medicin e 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 [place] malnutriti malnutriti on on [facility] Allergies, Adverse Reactions, Alerts Allergy Allergy Status Severity Reaction(s) Onset Inactive Treating Comm ents Source Name Type Date Date Clinician PREGABAL DRUG Active Other 2023-0 MD IN INGREDI 3-14 Anderso 00:00: n 00 PREGABAL DRUG Active Other 2023-0 MD IN INGREDI 3-14 Anderso 00:00: n 00 PREGABAL DRUG Active Other 2023-0 MD IN INGREDI 3-14 Anderso 00:00: n 00 PREGABAL DRUG Active Other 2023-0 MD IN INGREDI 3-14 Anderso 00:00: n 00 PREGABAL DRUG Active Other 2023-0 MD IN INGREDI 3-14 Anderso 00:00: n 00 PREGABAL DRUG Active Other 2023-0 MD IN INGREDI 3-14 Anderso 00:00: n 00 PREGABAL DRUG Active Other 2023-0 MD IN INGREDI 3-14 Anderso 00:00: n 00 PREGABAL DRUG Active Other 2023-0 MD IN INGREDI 3-14 Anderso 00:00: n 00 PREGABAL DRUG Active Other 2023-0 MD IN INGREDI 3-14 Anderso 00:00: n 00 PREGABAL DRUG Active Other 2023-0 MD IN INGREDI 3-14 Anderso 00:00: n 00 PREGABAL DRUG Active Other 2023-0 MD IN INGREDI 3-14 Anderso 00:00: n 00 PREGABAL DRUG Active Other 2023-0 MD IN INGREDI 3-14 Anderso 00:00: n 00 PREGABAL DRUG Active Other 2023-0 MD IN INGREDI 3-14 Anderso 00:00: n 00 PREGABAL DRUG Active Other 2023-0 MD IN INGREDI 3-14 Anderso 00:00: n 00 PREGABAL DRUG Active Other 2023-0 MD IN INGREDI 3-14 Anderso 00:00: n 00 PREGABAL DRUG Active Other 2023-0 MD IN INGREDI 3-14 Anderso 00:00: n 00 PREGABAL DRUG Active Other 2023-0 MD IN INGREDI 3-14 Anderso 00:00: n 00 PREGABAL DRUG Active Other 2023-0 MD IN INGREDI 3-14 Anderso 00:00: n 00 PREGABAL DRUG Active Other 2023-0 MD IN INGREDI 3-14 Anderso 00:00: n 00 PREGABAL DRUG Active Other 2023-0 MD IN INGREDI 3-14 Anderso 00:00: n 00 PREGABAL DRUG Active Other 2023-0 MD IN INGREDI 3-14 Anderso 00:00: n 00 PREGABAL DRUG Active Other 2023-0 MD IN INGREDI 3-14 Anderso 00:00: n 00 PREGABAL DRUG Active Other 2023-0 MD IN INGREDI 3-14 Anderso 00:00: n 00 PREGABAL DRUG Active Other 2023-0 MD IN INGREDI 3-14 Anderso 00:00: n 00 PREGABAL DRUG Active Other 2023-0 MD IN INGREDI 3-14 Anderso 00:00: n 00 PREGABAL DRUG Active Other 2023-0 MD IN INGREDI 3-14 Anderso 00:00: n 00 PREGABAL DRUG Active Other 2023-0 MD IN INGREDI 3-14 Anderso 00:00: n 00 PREGABAL DRUG Active Other 2023-0 MD IN INGREDI 3-14 Anderso 00:00: n 00 PREGABAL DRUG Active Other 2023-0 MD IN INGREDI 3-14 Anderso 00:00: n 00 PREGABAL DRUG Active Other 2023-0 MD IN INGREDI 3-14 Anderso 00:00: n 00 PREGABAL DRUG Active Other 2023-0 MD IN INGREDI 3-14 Anderso 00:00: n 00 PREGABAL DRUG Active Other 2023-0 MD IN INGREDI 3-14 Anderso 00:00: n 00 PREGABAL DRUG Active Other 2023-0 MD IN INGREDI 3-14 Anderso 00:00: n 00 PREGABAL DRUG Active Other 2023-0 MD IN INGREDI 3-14 Anderso 00:00: n 00 PREGABAL DRUG Active Other 2023-0 MD IN INGREDI 3-14 Anderso 00:00: n 00 PREGABAL DRUG Active Other 2023-0 MD IN INGREDI 3-14 Anderso 00:00: n 00 PREGABAL DRUG Active Other 2023-0 MD IN INGREDI 3-14 Anderso 00:00: n 00 PREGABAL DRUG Active Other 2023-0 MD IN INGREDI 3-14 Anderso 00:00: n 00 PREGABAL DRUG Active Other 2023-0 MD IN INGREDI 3-14 Anderso 00:00: n 00 PREGABAL DRUG Active Other 2023-0 MD IN INGREDI 3-14 Anderso 00:00: n 00 PREGABAL DRUG Active Other 2023-0 MD IN INGREDI 3-14 Anderso 00:00: n 00 PREGABAL DRUG Active Other 2023-0 MD IN INGREDI 3-14 Anderso 00:00: n 00 PREGABAL DRUG Active Other 2023-0 MD IN INGREDI 3-14 Anderso 00:00: n 00 PREGABAL DRUG Active Other 2023-0 MD IN INGREDI 3-14 Anderso 00:00: n 00 PREGABAL DRUG Active Other 2023-0 MD IN INGREDI 3-14 Anderso 00:00: n 00 PREGABAL DRUG Active Other 2023-0 MD IN INGREDI 3-14 Anderso 00:00: n 00 PREGABAL DRUG Active Other 2023-0 MD IN INGREDI 3-14 Anderso 00:00: n 00 PREGABAL DRUG Active Other 2023-0 MD IN INGREDI 3-14 Anderso 00:00: n 00 PREGABAL DRUG Active Other 2023-0 MD IN INGREDI 3-14 Anderso 00:00: n 00 PREGABAL DRUG Active Other 2023-0 MD IN INGREDI 3-14 Anderso 00:00: n 00 PREGABAL DRUG Active Other 2023-0 MD IN INGREDI 3-14 Anderso 00:00: n 00 PREGABAL DRUG Active Other 2023-0 MD IN INGREDI 3-14 Anderso 00:00: n 00 PREGABAL DRUG Active Other 2023-0 MD IN INGREDI 3-14 Anderso 00:00: n 00 PREGABAL DRUG Active Other 2023-0 MD IN INGREDI 3-14 Anderso 00:00: n 00 PREGABAL DRUG Active Other 2023-0 MD IN INGREDI 3-14 Anderso 00:00: n 00 PREGABAL DRUG Active Other 2023-0 MD IN INGREDI 3-14 Anderso 00:00: n 00 PREGABAL DRUG Active Other 2023-0 MD IN INGREDI 3-14 Anderso 00:00: n 00 PREGABAL DRUG Active Other 2023-0 MD IN INGREDI 3-14 Anderso 00:00: n 00 PREGABAL DRUG Active Other 2023-0 MD IN INGREDI 3-14 Anderso 00:00: n 00 PREGABAL DRUG Active Other 2023-0 MD IN INGREDI 3-14 Anderso 00:00: n 00 PREGABAL DRUG Active Other 2023-0 MD IN INGREDI 3-14 Anderso 00:00: n 00 PREGABAL DRUG Active Other 2023-0 MD IN INGREDI 3-14 Anderso 00:00: n 00 PREGABAL DRUG Active Other 2023-0 MD IN INGREDI 3-14 Anderso 00:00: n 00 PREGABAL DRUG Active Other 2023-0 MD IN INGREDI 3-14 Anderso 00:00: n 00 PREGABAL DRUG Active Other 2023-0 MD IN INGREDI 3-14 Anderso 00:00: n 00 PREGABAL DRUG Active Other 2023-0 MD IN INGREDI 3-14 Anderso 00:00: n 00 PREGABAL DRUG Active Other 2023-0 MD IN INGREDI 3-14 Anderso 00:00: n 00 PREGABAL DRUG Active Other 2023-0 MD IN INGREDI 3-14 Anderso 00:00: n 00 PREGABAL DRUG Active Other 2023-0 MD IN INGREDI 3-14 Anderso 00:00: n 00 PREGABAL DRUG Active Other 2023-0 MD IN INGREDI 3-14 Anderso 00:00: n 00 PREGABAL DRUG Active Other 2023-0 MD IN INGREDI 3-14 Anderso 00:00: n 00 PREGABAL DRUG Active Other 2023-0 MD IN INGREDI 3-14 Anderso 00:00: n 00 PREGABAL DRUG Active Other 2023-0 MD IN INGREDI 3-14 Anderso 00:00: n 00 PREGABAL DRUG Active Other 2023-0 MD IN INGREDI 3-14 Anderso 00:00: n 00 PREGABAL DRUG Active Other 2023-0 MD IN INGREDI 3-14 Anderso 00:00: n 00 PREGABAL DRUG Active Other 2023-0 MD IN INGREDI 3-14 Anderso 00:00: n 00 PREGABAL DRUG Active Other 2023-0 MD IN INGREDI 3-14 Anderso 00:00: n 00 PREGABAL DRUG Active Other 2023-0 MD IN INGREDI 3-14 Anderso 00:00: n 00 PREGABAL DRUG Active Other 2023-0 MD IN INGREDI 3-14 Anderso 00:00: n 00 PREGABAL DRUG Active Other 2023-0 MD IN INGREDI 3-14 Anderso 00:00: n 00 PREGABAL DRUG Active Other 2023-0 MD IN INGREDI 3-14 Anderso 00:00: n 00 PREGABAL DRUG Active Other 2023-0 MD IN INGREDI 3-14 Anderso 00:00: n 00 PREGABAL DRUG Active Other 2023-0 MD IN INGREDI 3-14 Anderso 00:00: n 00 PREGABAL DRUG Active Other 2023-0 MD IN INGREDI 3-14 Anderso 00:00: n 00 PREGABAL DRUG Active Other 2023-0 MD IN INGREDI 3-14 Anderso 00:00: n 00 PREGABAL DRUG Active Other 2023-0 MD IN INGREDI 3-14 Anderso 00:00: n 00 PREGABAL DRUG Active Other 2023-0 MD IN INGREDI 3-14 Anderso 00:00: n 00 PREGABAL DRUG Active Other 2023-0 MD IN INGREDI 3-14 Anderso 00:00: n 00 PREGABAL DRUG Active Other 2023-0 MD IN INGREDI 3-14 Anderso 00:00: n 00 PREGABAL DRUG Active Other 2023-0 MD IN INGREDI 3-14 Anderso 00:00: n 00 PREGABAL DRUG Active Other 2023-0 MD IN INGREDI 3-14 Anderso 00:00: n 00 PREGABAL DRUG Active Other 2023-0 MD IN INGREDI 3-14 Anderso 00:00: n 00 PREGABAL DRUG Active Other 2023-0 MD IN INGREDI 3-14 Anderso 00:00: n 00 PREGABAL DRUG Active Other 2023-0 MD IN INGREDI 3-14 Anderso 00:00: n 00 PREGABAL DRUG Active Other 2023-0 MD IN INGREDI 3-14 Anderso 00:00: n 00 PREGABAL DRUG Active Other 2023-0 MD IN INGREDI 3-14 Anderso 00:00: n 00 PREGABAL DRUG Active Other 2023-0 MD IN INGREDI 3-14 Anderso 00:00: n 00 PREGABAL DRUG Active Other 2023-0 MD IN INGREDI 3-14 Anderso 00:00: n 00 PREGABAL DRUG Active Other 2023-0 MD IN INGREDI 3-14 Anderso 00:00: n 00 PREGABAL DRUG Active Other 2023-0 MD IN INGREDI 3-14 Anderso 00:00: n 00 PREGABAL DRUG Active Other 2023-0 MD IN INGREDI 3-14 Anderso 00:00: n 00 PREGABAL DRUG Active Other 2023-0 MD IN INGREDI 3-14 Anderso 00:00: n 00 PREGABAL DRUG Active Other 2023-0 MD IN INGREDI 3-14 Anderso 00:00: n 00 PREGABAL DRUG Active Other 2023-0 MD IN INGREDI 3-14 Anderso 00:00: n 00 PREGABAL DRUG Active Other 2023-0 MD IN INGREDI 3-14 Anderso 00:00: n 00 PREGABAL DRUG Active Other 2023-0 MD IN INGREDI 3-14 Anderso 00:00: n 00 PREGABAL DRUG Active Other 2023-0 MD IN INGREDI 3-14 Anderso 00:00: n 00 PREGABAL DRUG Active Other 2023-0 MD IN INGREDI 3-14 Anderso 00:00: n 00 PREGABAL DRUG Active Other 2023-0 MD IN INGREDI 3-14 Anderso 00:00: n 00 PREGABAL DRUG Active Other 2023-0 MD IN INGREDI 3-14 Anderso 00:00: n 00 PREGABAL DRUG Active Other 2023-0 MD IN INGREDI 3-14 Anderso 00:00: n 00 PREGABAL DRUG Active Other 2023-0 MD IN INGREDI 3-14 Anderso 00:00: n 00 PREGABAL DRUG Active Other 2023-0 MD IN INGREDI 3-14 Anderso 00:00: n 00 PREGABAL DRUG Active Other 2023-0 MD IN INGREDI 3-14 Anderso 00:00: n 00 PREGABAL DRUG Active Other 2023-0 MD IN INGREDI 3-14 Anderso 00:00: n 00 PREGABAL DRUG Active Other 2023-0 MD IN INGREDI 3-14 Anderso 00:00: n 00 PREGABAL DRUG Active Other 2023-0 MD IN INGREDI 3-14 Anderso 00:00: n 00 PREGABAL DRUG Active Other 2023-0 MD IN INGREDI 3-14 Anderso 00:00: n 00 PREGABAL DRUG Active Other 2023-0 MD IN INGREDI 3-14 Anderso 00:00: n 00 PREGABAL DRUG Active Other 2023-0 MD IN INGREDI 3-14 Anderso 00:00: n 00 PREGABAL DRUG Active Other 2023-0 MD IN INGREDI 3-14 Anderso 00:00: n 00 PREGABAL DRUG Active Other 2023-0 MD IN [facility] 3-14 Anderso 00:00: n 00 [facility] [employer] Active Other 2023-0 MD IN [facility] 3-14 Anderso 00:00: n 00 [employer]REG[employer]AL [employer]UG Active Other 2023-0 MD IN [facility] 3-14 Anderso 00:00: n 00 [employer]REG[employer]AL [employer]UG Active Other 2023-0 MD IN [facility] 3-14 Anderso 00:00: n 00 [employer]REG[employer]AL [employer]UG Active Other 2023-0 MD IN [facility] 3-14 Anderso 00:00: n 00 [employer]REG[employer]AL [employer]UG Active Other 2023-0 MD IN [facility] 3-14 Anderso 00:00: n 00 [employer]REG[employer]AL [employer]UG Active Other 2023-0 MD IN [facility] 3-14 Anderso 00:00: n 00 [employer]REG[employer]AL [employer]UG Active Other 2023-0 MD IN [facility] 3-14 Anderso 00:00: n 00 [employer]REG[employer]AL [employer]UG Active Other 2023-0 MD IN [facility] 3-14 Anderso 00:00: n 00 [employer]AL [employer]UG Active Other 2023-0 MD IN [facility] 3-14 Anderso 00:00: n 00 PREG[employer]AL [employer]UG Active Other 2023-0 MD IN [facility] 3-14 Anderso 00:00: n 00 [employer]REG[employer]AL [employer]UG Active Other 2023-0 MD IN [facility] 3-14 Anderso 00:00: n 00 PREG[employer]AL DRUG Active Other 2023-0 MD IN [facility] 3-14 Anderso 00:00: n 00 PREG[employer]AL [employer]UG Active Other 2023-0 MD IN [facility] 3-14 Anderso 00:00: n 00 [employer]REG[employer]AL [employer]UG Active Other 2023-0 MD IN [facility] 3-14 Anderso 00:00: n 00 [employer]REG[employer]AL [employer]UG Active Other 2023-0 MD IN [facility] 3-14 Anderso 00:00: n 00 PREG[employer]AL DRUG Active Other 2023-0 MD IN [facility] 3-14 Anderso 00:00: n 00 PREG[employer]AL DRUG Active Other 2023-0 MD IN [facility] 3-14 Anderso 00:00: n 00 PREG[employer]AL DRUG Active Other 2023-0 MD IN [facility] 3-14 Anderso 00:00: n 00 PREG[employer]AL DRUG Active Other 2023-0 MD IN [facility] 3-14 Anderso 00:00: n 00 [employer]REG[employer]AL DRUG Active Other 2023-0 MD IN [facility] 3-14 Anderso 00:00: n 00 [employer]REG[employer]AL DRUG Active Other 2023-0 MD IN [facility] 3-14 Anderso 00:00: n 00 [employer]REG[employer]AL DRUG Active Other 2023-0 MD IN [facility] 3-14 Anderso 00:00: n 00 [employer]REG[employer]AL [employer]UG Active Other 2023-0 MD IN [facility] 3-14 Anderso 00:00: n 00 [employer]REG[employer]AL DRUG Active Other 2023-0 MD IN [facility] 3-14 Anderso 00:00: n 00 PREG[employer]AL DRUG Active Other 2023-0 MD IN [facility] 3-14 Anderso 00:00: n 00 [employer]AL [employer]UG Active Other 2023-0 MD IN [facility] 3-14 Anderso 00:00: n 00 [employer]REG[employer]AL DRUG Active Other 2023-0 MD IN [facility] 3-14 Anderso 00:00: n 00 [employer]REG[employer]AL [employer]UG Active Other 2023-0 MD IN [facility] 3-14 Anderso 00:00: n 00 [employer]REG[employer]AL [employer]UG Active Other 2023-0 MD IN [facility] 3-14 Anderso 00:00: n 00 [employer]REG[employer]AL [employer]UG Active Other 2023-0 MD IN [facility] 3-14 Anderso 00:00: n 00 [employer]REG[employer]AL [employer]UG Active Other 2023-0 MD IN [facility] 3-14 Anderso 00:00: n 00 [employer]REG[employer]AL [employer]UG Active Other 2023-0 MD IN [facility] 3-14 Anderso 00:00: n 00 [employer]REG[employer]AL DRUG Active Other 2023-0 MD IN [facility] 3-14 Anderso 00:00: n 00 [employer]REG[employer]AL DRUG Active Other 2023-0 MD IN [facility] 3-14 Anderso 00:00: n 00 [employer]REG[employer]AL DRUG Active Other 2023-0 MD IN [facility] 3-14 Anderso 00:00: n 00 [employer]REG[employer]AL [employer]UG Active Other 2023-0 MD IN [facility] 3-14 Anderso 00:00: n 00 [employer]REG[employer]AL [employer]UG Active Other 2023-0 MD IN [facility] 3-14 Anderso 00:00: n 00 [employer]REG[employer]AL [employer]UG Active Other 2023-0 MD IN [facility] 3-14 Anderso 00:00: n 00 [employer]REG[employer]AL [employer]UG Active Other 2023-0 MD IN [facility] 3-14 Anderso 00:00: n 00 [employer]REG[employer]AL [employer]UG Active Other 2023-0 MD IN [facility] 3-14 Anderso 00:00: n 00 [employer]REG[employer]AL [employer]UG Active Other 2023-0 MD IN [facility] 3-14 Anderso 00:00: n 00 [employer]REG[employer]AL [employer]UG Active Other 2023-0 MD IN [facility] 3-14 Anderso 00:00: n 00 [employer]REG[employer]AL [employer]UG Active Other 2023-0 MD IN [facility] 3-14 Anderso 00:00: n 00 [employer]REG[employer]AL [employer]UG Active Other 2023-0 MD IN [facility] 3-14 Anderso 00:00: n 00 [employer]REG[employer]AL [employer]UG Active Other 2023-0 MD IN [facility] 3-14 Anderso 00:00: n 00 [employer]REG[employer]AL [employer]UG Active Other 2023-0 MD IN [facility] 3-14 Anderso 00:00: n 00 [employer]REG[employer]AL [employer]UG Active Other 2023-0 MD IN [facility] 3-14 Anderso 00:00: n 00 [employer]REG[employer]AL [employer]UG Active Other 2023-0 MD IN [facility] 3-14 Anderso 00:00: n 00 [employer]AL [employer]UG Active Other 2023-0 MD IN [facility] 3-14 Anderso 00:00: n 00 [employer]REG[employer]AL [employer]UG Active Other 2023-0 MD IN [facility] 3-14 Anderso 00:00: n 00 [employer]REG[employer]AL DRUG Active Other 2023-0 MD IN [facility] 3-14 Anderso 00:00: n 00 [employer]REG[employer]AL [employer]UG Active Other 2023-0 MD IN [facility] 3-14 Anderso 00:00: n 00 [employer]REG[employer]AL [employer]UG Active Other 2023-0 MD IN [facility] 3-14 Anderso 00:00: n 00 [employer]REG[employer]AL [employer]UG Active Other 2023-0 MD IN [facility] 3-14 Anderso 00:00: n 00 [employer]REG[employer]AL [employer]UG Active Other 2023-0 MD IN [facility] 3-14 Anderso 00:00: n 00 [employer]REG[employer]AL DRUG Active Other 2023-0 MD IN [facility] 3-14 Anderso 00:00: n 00 [employer]REG[employer]AL [employer]UG Active Other 2023-0 MD IN [facility] 3-14 Anderso 00:00: n 00 [employer]REG[employer]AL [employer]UG Active Other 2023-0 MD IN [facility] 3-14 Anderso 00:00: n 00 [employer]AL [employer]UG Active Other 2023-0 MD IN [facility] 3-14 Anderso 00:00: n 00 [employer]REG[employer]AL [employer]UG Active Other 2023-0 MD IN [facility] 3-14 Anderso 00:00: n 00 [employer]REG[employer]AL [employer]UG Active Other 2023-0 MD IN [facility] 3-14 Anderso 00:00: n 00 [employer]REG[employer]AL [employer]UG Active Other 2023-0 MD IN [facility] 3-14 Anderso 00:00: n 00 [employer]REG[employer]AL [employer]UG Active Other 2023-0 MD IN [facility] 3-14 Anderso 00:00: n 00 [employer]REG[employer]AL [employer]UG Active Other 2023-0 MD IN [facility] 3-14 Anderso 00:00: n 00 [employer]AL [employer]UG Active Other 2023-0 MD IN [facility] 3-14 Anderso 00:00: n 00 [employer]REG[employer]AL [employer]UG Active Other 2023-0 MD IN [facility] 3-14 Anderso 00:00: n 00 [employer]REG[employer]AL [employer]UG Active Other 2023-0 MD IN [facility] 3-14 Anderso 00:00: n 00 [employer]REG[employer]AL [employer]UG Active Other 2023-0 MD IN [facility] 3-14 Anderso 00:00: n 00 [employer]REG[employer]AL [employer]UG Active Other 2023-0 MD IN [facility] 3-14 Anderso 00:00: n 00 [employer]REG[employer]AL [employer]UG Active Other 2023-0 MD IN [facility] 3-14 Anderso 00:00: n 00 [employer]REG[employer]AL [employer]UG Active Other 2023-0 MD IN [facility] 3-14 Anderso 00:00: n 00 [employer]REG[employer]AL [employer]UG Active Other 2023-0 MD IN [facility] 3-14 Anderso 00:00: n 00 [employer]REG[employer]AL [employer]UG Active Other 2023-0 MD IN [facility] 3-14 Anderso 00:00: n 00 [employer]REG[employer]AL [employer]UG Active Other 2023-0 MD IN [facility] 3-14 Anderso 00:00: n 00 [employer]REG[employer]AL [employer]UG Active Other 2023-0 MD IN [facility] 3-14 Anderso 00:00: n 00 [employer]REG[employer]AL [employer]UG Active Other 2023-0 MD IN [facility] 3-14 Anderso 00:00: n 00 [employer]AL [employer]UG Active Other 2023-0 MD IN [facility] 3-14 Anderso 00:00: n 00 [employer]REG[employer]AL [employer]UG Active Other 2023-0 MD IN [facility] 3-14 Anderso 00:00: n 00 [employer]REG[employer]AL [employer]UG Active Other 2023-0 MD IN [facility] 3-14 Anderso 00:00: n 00 [employer]AL [employer]UG Active Other 2023-0 MD IN [facility] 3-14 Anderso 00:00: n 00 [employer]REG[employer]AL [employer]UG Active Other 2023-0 MD IN [facility] 3-14 Anderso 00:00: n 00 [employer]REG[employer]AL [employer]UG Active Other 2023-0 MD IN [facility] 3-14 Anderso 00:00: n 00 [employer]AL [employer]UG Active Other 2023-0 MD IN [facility] 3-14 Anderso 00:00: n 00 [employer]AL [employer]UG Active Other 2023-0 MD IN [facility] 3-14 Anderso 00:00: n 00 [employer]REG[employer]AL [employer]UG Active Other 2023-0 MD IN [facility] 3-14 Anderso 00:00: n 00 [employer]AL [employer]UG Active Other 2023-0 MD IN [facility] 3-14 Anderso 00:00: n 00 [employer]AL [employer]UG Active Other 2023-0 MD IN [facility] 3-14 Anderso 00:00: n 00 [employer]AL [employer]UG Active Other 2023-0 MD IN [facility] 3-14 Anderso 00:00: n 00 [employer]AL [employer]UG Active Other 2023-0 MD IN [facility] 3-14 Anderso 00:00: n 00 [employer]REG[employer]AL [employer]UG Active Other 2023-0 MD IN [facility] 3-14 Anderso 00:00: n 00 [employer]AL [employer]UG Active Other 2023-0 MD IN [facility] 3-14 Anderso 00:00: n 00 [employer]AL [employer]UG Active Other 2023-0 MD IN [facility] 3-14 Anderso 00:00: n 00 [employer]REG[employer]AL [employer]UG Active Other 2023-0 MD IN [facility] 3-14 Anderso 00:00: n 00 [employer]REG[employer]AL [employer]UG Active Other 2023-0 MD IN [facility] 3-14 Anderso 00:00: n 00 [employer]REG[employer]AL [employer]UG Active Other 2023-0 MD IN [facility] 3-14 Anderso 00:00: n 00 [employer]REG[employer]AL [employer]UG Active Other 2023-0 MD IN [facility] 3-14 Anderso 00:00: n 00 [employer]REG[employer]AL [employer]UG Active Other 2023-0 MD IN [facility] 3-14 Anderso 00:00: n 00 [employer]REG[employer]AL [employer]UG Active Other 2023-0 MD IN [facility] 3-14 Anderso 00:00: n 00 [employer]REG[employer]AL [employer]UG Active Other 2023-0 MD IN [facility] 3-14 Anderso 00:00: n 00 [employer]REG[employer]AL [employer]UG Active Other 2023-0 MD IN [facility] 3-14 Anderso 00:00: n 00 [employer]REG[employer]AL [employer]UG Active Other 2023-0 MD IN [facility] 3-14 Anderso 00:00: n 00 [employer]REG[employer]AL [employer]UG Active Other 2023-0 MD IN [facility] 3-14 Anderso 00:00: n 00 [employer]REG[employer]AL [employer]UG Active Other 2023-0 MD IN [facility] 3-14 Anderso 00:00: n 00 [employer]REG[employer]AL [employer]UG Active Other 2023-0 MD IN [facility] 3-14 Anderso 00:00: n 00 [employer]REG[employer]AL [employer]UG Active Other 2023-0 MD IN [facility] 3-14 Anderso 00:00: n 00 [employer]REG[employer]AL [employer]UG Active Other 2023-0 MD IN [facility] 3-14 Anderso 00:00: n 00 [employer]REG[employer]AL [employer]UG Active Other 2023-0 MD IN [facility] 3-14 Anderso 00:00: n 00 [employer]REG[employer]AL [employer]UG Active Other 2023-0 MD IN [facility] 3-14 Anderso 00:00: n 00 [employer]REG[employer]AL [employer]UG Active Other 2023-0 MD IN [facility] 3-14 Anderso 00:00: n 00 [employer]REG[employer]AL [employer]UG Active Other 2023-0 MD IN [facility] 3-14 Anderso 00:00: n 00 [employer]REG[employer]AL [employer]UG Active Other 2023-0 MD IN [facility] 3-14 Anderso 00:00: n 00 [employer]REG[employer]AL [employer]UG Active Other 2023-0 MD IN [facility] 3-14 Anderso 00:00: n 00 PREG[employer]AL [employer]UG Active Other 2023-0 MD IN [facility] 3-14 Anderso 00:00: n 00 [employer]REG[employer]AL [employer]UG Active Other 2023-0 MD IN [facility] 3-14 Anderso 00:00: n 00 [employer]REG[employer]AL [employer]UG Active Other 2023-0 MD IN [facility] 3-14 Anderso 00:00: n 00 [employer]REG[employer]AL [employer]UG Active Other 2023-0 MD IN [facility] 3-14 Anderso 00:00: n 00 [employer]REG[employer]AL [employer]UG Active Other 2023-0 MD IN [facility] 3-14 Anderso 00:00: n 00 [employer]REG[employer]AL [employer]UG Active Other 2023-0 MD IN [facility] 3-14 Anderso 00:00: n 00 [employer]REG[employer]AL [employer]UG Active Other 2023-0 MD IN [facility] 3-14 Anderso 00:00: n 00 [employer]REG[employer]AL [employer]UG Active Other 2023-0 MD IN [facility] 3-14 Anderso 00:00: n 00 PREG[employer]AL [employer]UG Active Other 2023-0 MD IN [facility] 3-14 Anderso 00:00: n 00 [employer]REG[employer]AL [employer]UG Active Other 2023-0 MD IN [facility] 3-14 Anderso 00:00: n 00 [employer]REG[employer]AL [employer]UG Active Other 2023-0 MD IN [facility] 3-14 Anderso 00:00: n 00 [employer]REG[employer]AL [employer]UG Active Other 2023-0 MD IN [facility] 3-14 Anderso 00:00: n 00 [employer]REG[employer]AL [employer]UG Active Other 2023-0 MD IN [facility] 3-14 Anderso 00:00: n 00 PREG[employer]AL [employer]UG Active Other 2023-0 MD IN [facility] 3-14 Anderso 00:00: n 00 [employer]REG[employer]AL [employer]UG Active Other 2023-0 MD IN [facility] 3-14 Anderso 00:00: n 00 [employer]REG[employer]AL [employer]UG Active Other 2023-0 MD IN [facility] 3-14 Anderso 00:00: n 00 [employer]REG[employer]AL [employer]UG Active Other 2023-0 MD IN [facility] 3-14 Anderso 00:00: n 00 [employer]REG[employer]AL [employer]UG Active Other 2023-0 MD IN [facility] 3-14 Anderso 00:00: n 00 [employer]REG[employer]AL [employer]UG Active Other 2023-0 MD IN [facility] 3-14 Anderso 00:00: n 00 [employer]REG[employer]AL [employer]UG Active Other 2023-0 MD IN [facility] 3-14 Anderso 00:00: n 00 [employer]REG[employer]AL [employer]UG Active Other 2023-0 MD IN [facility] 3-14 Anderso 00:00: n 00 [employer]REG[employer]AL [employer]UG Active Other 2023-0 MD IN [facility] 3-14 Anderso 00:00: n 00 [employer]REG[employer]AL [employer]UG Active Other 2023-0 MD IN [facility] 3-14 Anderso 00:00: n 00 [employer]REG[employer]AL [employer]UG Active Other 2023-0 MD IN [facility] 3-14 Anderso 00:00: n 00 [employer]REG[employer]AL [employer]UG Active Other 2023-0 MD IN [facility] 3-14 Anderso 00:00: n 00 [employer]REG[employer]AL [employer]UG Active Other 2023-0 MD IN [facility] 3-14 Anderso 00:00: n 00 [employer]REG[employer]AL [employer]UG Active Other 2023-0 MD IN [facility] 3-14 Anderso 00:00: n 00 [employer]REG[employer]AL [employer]UG Active Other 2023-0 MD IN [facility] 3-14 Anderso 00:00: n 00 [employer]REG[employer]AL [employer]UG Active Other 2023-0 MD IN [facility] 3-14 Anderso 00:00: n 00 [employer]REG[employer]AL [employer]UG Active Other 2023-0 MD IN [facility] 3-14 Anderso 00:00: n 00 [employer]REG[employer]AL [employer]UG Active Other 2023-0 MD IN [facility] 3-14 Anderso 00:00: n 00 [employer]REG[employer]AL [employer]UG Active Other 2023-0 MD IN [facility] 3-14 Anderso 00:00: n 00 [employer]REG[employer]AL [employer]UG Active Other 2023-0 MD IN [facility] 3-14 Anderso 00:00: n 00 [employer]REG[employer]AL [employer]UG Active Other 2023-0 MD IN [facility] 3-14 Anderso 00:00: n 00 [employer]REG[employer]AL [employer]UG Active Other 2023-0 MD IN [facility] 3-14 Anderso 00:00: n 00 [employer]REG[employer]AL [employer]UG Active Other 2023-0 MD IN [facility] 3-14 Anderso 00:00: n 00 [employer]REG[employer]AL [employer]UG Active Other 2023-0 MD IN [facility] 3-14 Anderso 00:00: n 00 [employer]REG[employer]AL [employer]UG Active Other 2023-0 MD IN [facility] 3-14 Anderso 00:00: n 00 [employer]REG[employer]AL [employer]UG Active Other 2023-0 MD IN [facility] 3-14 Anderso 00:00: n 00 [employer]REG[employer]AL [employer]UG Active Other 2023-0 MD IN [facility] 3-14 Anderso 00:00: n 00 [employer]REG[employer]AL [employer]UG Active Other 2023-0 MD IN [facility] 3-14 Anderso 00:00: n 00 [employer]REG[employer]AL [employer]UG Active Other 2023-0 MD IN [facility] 3-14 Anderso 00:00: n 00 [employer]REG[employer]AL [employer]UG Active Other 2023-0 MD IN [facility] 3-14 Anderso 00:00: n 00 [employer]REG[employer]AL [employer]UG Active Other 2023-0 MD IN [facility] 3-14 Anderso 00:00: n 00 [employer]REG[employer]AL [employer]UG Active Other 2023-0 MD IN [facility] 3-14 Anderso 00:00: n 00 [employer]REG[employer]AL [employer]UG Active Other 2023-0 MD IN [facility] 3-14 Anderso 00:00: n 00 [employer]REG[employer]AL [employer]UG Active Other 2023-0 MD IN [facility] 3-14 Anderso 00:00: n 00 [employer]REG[employer]AL [employer]UG Active Other 2023-0 MD IN [facility] 3-14 Anderso 00:00: n 00 [employer]REG[employer]AL [employer]UG Active Other 2023-0 MD IN [facility] 3-14 Anderso 00:00: n 00 [employer]REG[employer]AL [employer]UG Active Other 2023-0 MD IN [facility] 3-14 Anderso 00:00: n 00 [employer]REG[employer]AL [employer]UG Active Other 2023-0 MD IN [facility] 3-14 Anderso 00:00: n 00 [employer]REG[employer]AL [employer]UG Active Other 2023-0 MD IN [facility] 3-14 Anderso 00:00: n 00 [employer]REG[employer]AL [employer]UG Active Other 2023-0 MD IN [facility] 3-14 Anderso 00:00: n 00 [employer]REG[employer]AL [employer]UG Active Other 2023-0 MD IN [facility] 3-14 Anderso 00:00: n 00 [employer]REG[employer]AL [employer]UG Active Other 2023-0 MD IN [facility] 3-14 Anderso 00:00: n 00 [employer]REG[employer]AL [employer]UG Active Other 2023-0 MD IN [facility] 3-14 Anderso 00:00: n 00 [employer]REG[employer]AL [employer]UG Active Other 2023-0 MD IN [facility] 3-14 Anderso 00:00: n 00 [employer]REG[employer]AL [employer]UG Active Other 2023-0 MD IN [facility] 3-14 Anderso 00:00: n 00 [employer]REG[employer]AL [employer]UG Active Other 2023-0 MD IN [facility] 3-14 Anderso 00:00: n 00 [employer]REG[employer]AL [employer]UG Active Other 2023-0 MD IN [facility] 3-14 Anderso 00:00: n 00 [employer]REG[employer]AL DRUG Active Other 2023-0 MD IN [facility] 3-14 Anderso 00:00: n 00 [employer]REG[employer]AL [employer]UG Active Other 2023-0 MD IN [facility] 3-14 Anderso 00:00: n 00 [employer]REG[employer]AL [employer]UG Active Other 2023-0 MD IN [facility] 3-14 Anderso 00:00: n 00 [employer]REG[employer]AL [employer]UG Active Other 2023-0 MD IN [facility] 3-14 Anderso 00:00: n 00 [employer]REG[employer]AL [employer]UG Active Other 2023-0 MD IN [facility] 3-14 Anderso 00:00: n 00 [employer]REG[employer]AL [employer]UG Active Other 2023-0 MD IN [facility] 3-14 Anderso 00:00: n 00 [employer]REG[employer]AL [employer]UG Active Other 2023-0 MD IN [facility] 3-14 Anderso 00:00: n 00 [employer]REG[employer]AL [employer]UG Active Other 2023-0 MD IN [facility] 3-14 Anderso 00:00: n 00 [employer]REG[employer]AL [employer]UG Active Other 2023-0 MD IN [facility] 3-14 Anderso 00:00: n 00 [employer]REG[employer]AL [employer]UG Active Other 2023-0 MD IN [facility] 3-14 Anderso 00:00: n 00 [employer]REG[employer]AL DRUG Active Other 2023-0 MD IN [facility] 3-14 Anderso 00:00: n 00 [employer]REG[employer]AL [employer]UG Active Other 2023-0 MD IN [facility] 3-14 Anderso 00:00: n 00 [employer]REG[employer]AL [employer]UG Active Other 2023-0 MD IN [facility] 3-14 Anderso 00:00: n 00 [employer]REG[employer]AL [employer]UG Active Other 2023-0 MD IN [facility] 3-14 Anderso 00:00: n 00 [employer]REG[employer]AL [employer]UG Active Other 2023-0 MD IN [facility] 3-14 Anderso 00:00: n 00 [employer]REG[employer]AL [employer]UG Active Other 2023-0 MD IN [facility] 3-14 Anderso 00:00: n 00 [employer]REG[employer]AL DRUG Active Other 2023-0 MD IN [facility] 3-14 Anderso 00:00: n 00 [employer]REG[employer]AL [employer]UG Active Other 2023-0 MD IN [facility] 3-14 Anderso 00:00: n 00 [employer]REG[employer]AL [employer]UG Active Other 2023-0 MD IN [facility] 3-14 Anderso 00:00: n 00 [employer]REG[employer]AL [employer]UG Active Other 2023-0 MD IN [facility] 3-14 Anderso 00:00: n 00 [employer]REG[employer]AL [employer]UG Active Other 2023-0 MD IN [facility] 3-14 Anderso 00:00: n 00 [employer]REG[employer]AL [employer]UG Active Other 2023-0 MD IN [facility] 3-14 Anderso 00:00: n 00 [employer]REG[employer]AL [employer]UG Active Other 2023-0 MD IN [facility] 3-14 Anderso 00:00: n 00 [employer]REG[employer]AL [employer]UG Active Other 2023-0 MD IN [facility] 3-14 Anderso 00:00: n 00 [employer]REG[employer]AL [employer]UG Active Other 2023-0 MD IN [facility] 3-14 Anderso 00:00: n 00 [employer]REG[employer]AL [employer]UG Active Other 2023-0 MD IN [facility] 3-14 Anderso 00:00: n 00 [employer]REG[employer]AL [employer]UG Active Other 2023-0 MD IN [facility] 3-14 Anderso 00:00: n 00 [employer]REG[employer]AL [employer]UG Active Other 2023-0 MD IN [facility] 3-14 Anderso 00:00: n 00 [employer]REG[employer]AL [employer]UG Active Other 2023-0 MD IN [facility] 3-14 Anderso 00:00: n 00 [employer]REG[employer]AL [employer]UG Active Other 2023-0 MD IN [facility] 3-14 Anderso 00:00: n 00 [employer]REG[employer]AL [employer]UG Active Other 2023-0 MD IN [facility] 3-14 Anderso 00:00: n 00 [employer]REG[employer]AL [employer]UG Active Other 2023-0 MD IN [facility] 3-14 Anderso 00:00: n 00 [employer]REG[employer]AL [employer]UG Active Other 2023-0 MD IN [facility] 3-14 Anderso 00:00: n 00 [employer]REG[employer]AL [employer]UG Active Other 2023-0 MD IN [facility] 3-14 Anderso 00:00: n 00 [employer]REG[employer]AL [employer]UG Active Other 2023-0 MD IN [facility] 3-14 Anderso 00:00: n 00 [employer]REG[employer]AL [employer]UG Active Other 2023-0 MD IN [facility] 3-14 Anderso 00:00: n 00 [employer]REG[employer]AL [employer]UG Active Other 2023-0 MD IN [facility] 3-14 Anderso 00:00: n 00 [employer]REG[employer]AL [employer]UG Active Other 2023-0 MD IN [facility] 3-14 Anderso 00:00: n 00 [employer]REG[employer]AL [employer]UG Active Other 2023-0 MD IN [facility] 3-14 Anderso 00:00: n 00 [employer]REG[employer]AL [employer]UG Active Other 2023-0 MD IN [facility] 3-14 Anderso 00:00: n 00 [employer]REG[employer]AL [employer]UG Active Other 2023-0 MD IN [facility] 3-14 Anderso 00:00: n 00 [employer]REG[employer]AL [employer]UG Active Other 2023-0 MD IN [facility] 3-14 Anderso 00:00: n 00 [employer]REG[employer]AL [employer]UG Active Other 2023-0 MD IN [facility] 3-14 Anderso 00:00: n 00 [employer]REG[employer]AL [employer]UG Active Other 2023-0 MD IN [facility] 3-14 Anderso 00:00: n 00 [employer]REG[employer]AL [employer]UG Active Other 2023-0 MD IN [facility] 3-14 Anderso 00:00: n 00 [employer]REG[employer]AL [employer]UG Active Other 2023-0 MD IN [facility] 3-14 Anderso 00:00: n 00 [employer]REG[employer]AL [employer]UG Active Other 2023-0 MD IN [facility] 3-14 Anderso 00:00: n 00 [employer]REG[employer]AL [employer]UG Active Other 2023-0 MD IN [facility] 3-14 Anderso 00:00: n 00 [employer]REG[employer]AL [employer]UG Active Other 2023-0 MD IN [facility] 3-14 Anderso 00:00: n 00 [employer]REG[employer]AL [employer]UG Active Other 2023-0 MD IN [facility] 3-14 Anderso 00:00: n 00 [employer]REG[employer]AL [employer]UG Active Other 2023-0 MD IN [facility] 3-14 Anderso 00:00: n 00 [employer]REG[employer]AL [employer]UG Active Other 2023-0 MD IN [facility] 3-14 Anderso 00:00: n 00 [employer]REG[employer]AL [employer]UG Active Other 2023-0 MD IN [facility] 3-14 Anderso 00:00: n 00 [employer]REG[employer]AL [employer]UG Active Other 2023-0 MD IN [facility] 3-14 Anderso 00:00: n 00 [employer]REG[employer]AL [employer]UG Active Other 2023-0 MD IN [facility] 3-14 Anderso 00:00: n 00 [employer]REG[employer]AL [employer]UG Active Other 2023-0 MD IN [facility] 3-14 Anderso 00:00: n 00 [employer]REG[employer]AL [employer]UG Active Other 2023-0 MD IN [facility] 3-14 Anderso 00:00: n 00 PREG[employer]AL DRUG Active Other 2023-0 MD IN [facility] 3-14 Anderso 00:00: n 00 [employer]REG[employer]AL [employer]UG Active Other 2023-0 MD IN [facility] 3-14 Anderso 00:00: n 00 [employer]REG[employer]AL [employer]UG Active Other 2023-0 MD IN [facility] 3-14 Anderso 00:00: n 00 [employer]REG[employer]AL [employer]UG Active Other 2023-0 MD IN [facility] 3-14 Anderso 00:00: n 00 PREG[employer]AL DRUG Active Other 2023-0 MD IN [facility] 3-14 Anderso 00:00: n 00 [employer]REG[employer]AL [employer]UG Active Other 2023-0 MD IN [facility] 3-14 Anderso 00:00: n 00 [employer]REG[employer]AL [employer]UG Active Other 2023-0 MD IN [facility] 3-14 Anderso 00:00: n 00 [employer]REG[employer]AL [employer]UG Active Other 2023-0 MD IN [facility] 3-14 Anderso 00:00: n 00 PREG[employer]AL DRUG Active Other 2023-0 MD IN [facility] 3-14 Anderso 00:00: n 00 PREG[employer]AL [employer]UG Active Other 2023-0 MD IN [facility] 3-14 Anderso 00:00: n 00 PREG[employer]AL [employer]UG Active Other 2023-0 MD IN [facility] 3-14 Anderso 00:00: n 00 [employer]REG[employer]AL [employer]UG Active Other 2023-0 MD IN [facility] 3-14 Anderso 00:00: n 00 PREG[employer]AL [employer]UG Active Other 2023-0 MD IN [facility] 3-14 Anderso 00:00: n 00 PREG[employer]AL [employer]UG Active Other 2023-0 MD IN [facility] 3-14 Anderso 00:00: n 00 PREG[employer]AL [employer]UG Active Other 2023-0 MD IN [facility] 3-14 Anderso 00:00: n 00 PREG[employer]AL [employer]UG Active Other 2023-0 MD IN [facility] 3-14 Anderso 00:00: n 00 PREG[employer]AL DRUG Active Other 2023-0 MD IN [facility] 3-14 Anderso 00:00: n 00 PREG[employer]AL [employer]UG Active Other 2023-0 MD IN [facility] 3-14 Anderso 00:00: n 00 PREG[employer]AL DRUG Active Other 2023-0 MD IN [facility] 3-14 Anderso 00:00: n 00 PREG[employer]AL [employer]UG Active Other 2023-0 MD IN [facility] 3-14 Anderso 00:00: n 00 PREG[employer]AL DRUG Active Other 2023-0 MD IN [facility] 3-14 Anderso 00:00: n 00 PREG[employer]AL DRUG Active Other 2023-0 MD IN [facility] 3-14 Anderso 00:00: n 00 PREG[employer]AL DRUG Active Other 2023-0 MD IN [facility] 3-14 Anderso 00:00: n 00 PREG[employer]AL DRUG Active Other 2023-0 MD IN [facility] 3-14 Anderso 00:00: n 00 PREG[employer]AL DRUG Active Other 2023-0 MD IN [facility] 3-14 Anderso 00:00: n 00 PREG[employer]AL DRUG Active Other 2023-0 MD IN [facility] 3-14 Anderso 00:00: n 00 PREG[employer]AL DRUG Active Other 2023-0 MD IN [facility] 3-14 Anderso 00:00: n 00 PREG[employer]AL [employer]UG Active Other 2023-0 MD IN [facility] 3-14 Anderso 00:00: n 00 PREG[employer]AL DRUG Active Other 2023-0 MD IN [facility] 3-14 Anderso 00:00: n 00 PREG[employer]AL [employer]UG Active Other 2023-0 MD IN [facility] 3-14 Anderso 00:00: n 00 PREG[employer]AL DRUG Active Other 2023-0 MD IN [facility] 3-14 Anderso 00:00: n 00 PREG[employer]AL [employer]UG Active Other 2023-0 MD IN [facility] 3-14 Anderso 00:00: n 00 PREG[employer]AL [employer]UG Active Other 2023-0 MD IN [facility] 3-14 Anderso 00:00: n 00 PREG[employer]AL DRUG Active Other 2023-0 MD IN [facility] 3-14 Anderso 00:00: n 00 PREG[employer]AL DRUG Active Other 2023-0 MD IN [facility] 3-14 Anderso 00:00: n 00 PREG[employer]AL DRUG Active Other 2023-0 MD IN [facility] 3-14 Anderso 00:00: n 00 PREG[employer]AL DRUG Active Other 2023-0 MD IN [facility] 3-14 Anderso 00:00: n 00 PREG[employer]AL DRUG Active Other 2023-0 MD IN [facility] 3-14 Anderso 00:00: n 00 PREG[employer]AL DRUG Active Other 2023-0 MD IN [facility] 3-14 Anderso 00:00: n 00 PREG[employer]AL DRUG Active Other 2023-0 MD IN [facility] 3-14 Anderso 00:00: n 00 PREG[employer]AL DRUG Active Other 2023-0 MD IN [facility] 3-14 Anderso 00:00: n 00 PREG[employer]AL DRUG Active Other 2023-0 MD IN [facility] 3-14 Anderso 00:00: n 00 PREG[employer]AL DRUG Active Other 2023-0 MD IN [facility] 3-14 Anderso 00:00: n 00 PREG[employer]AL DRUG Active Other 2023-0 MD IN [facility] 3-14 Anderso 00:00: n 00 PREG[employer]AL DRUG Active Other 2023-0 MD IN [facility] 3-14 Anderso 00:00: n 00 PREG[employer]AL DRUG Active Other 2023-0 MD IN [facility] 3-14 Anderso 00:00: n 00 PREG[employer]AL DRUG Active Other 2023-0 MD IN [facility] 3-14 Anderso 00:00: n 00 PREG[employer]AL DRUG Active Other 2023-0 MD IN [facility] 3-14 Anderso 00:00: n 00 PREG[employer]AL DRUG Active Other 2023-0 MD IN [facility] 3-14 Anderso 00:00: n 00 PREGABAL DRUG Active Other 2023-0 MD IN [facility] 3-14 Anderso 00:00: n 00 PREGABAL DRUG Active Other 2023-0 MD IN [facility] 3-14 Anderso 00:00: n 00 PREGABAL DRUG Active Other 2023-0 MD IN [facility] 3-14 Anderso 00:00: n 00 PREGABAL DRUG Active Other 2023-0 MD IN [facility] 3-14 Anderso 00:00: n 00 PREGABAL DRUG Active Other 2023-0 MD IN [facility] 3-14 Anderso 00:00: n 00 PREGABAL DRUG Active Other 2023-0 MD IN [facility] 3-14 Anderso 00:00: n 00 PREGABAL DRUG Active Other 2023-0 MD IN [facility] 3-14 Anderso 00:00: n 00 PREGABAL DRUG Active Other 2023-0 MD IN [facility] 3-14 Anderso 00:00: n 00 PREGABAL DRUG Active Other 2023-0 MD IN [facility] 3-14 Anderso 00:00: n 00 PREGABAL DRUG Active Other 2023-0 MD IN [facility] 3-14 Anderso 00:00: n 00 PREGABAL DRUG Active Other 2023-0 MD IN [facility] 3-14 Anderso 00:00: n 00 PREGABAL DRUG Active Other 2023-0 MD IN [facility] 3-14 Anderso 00:00: n 00 PREGABAL DRUG Active Other 2023-0 MD IN [facility] 3-14 Anderso 00:00: n 00 PREGABAL DRUG Active Other 2023-0 MD IN [facility] 3-14 Anderso 00:00: n 00 PREGABAL DRUG Active Other 2023-0 MD IN [facility] 3-14 Anderso 00:00: n 00 PREGABAL DRUG Active Other 2023-0 MD IN [facility] 3-14 Anderso 00:00: n 00 PREGABAL DRUG Active Other 2023-0 MD IN [facility] 3-14 Anderso 00:00: n 00 PREGABAL DRUG Active Other 2023-0 MD IN [facility] 3-14 Anderso 00:00: n 00 PREGABAL DRUG Active Other 2023-0 MD IN [facility] 3-14 Anderso 00:00: n 00 PREGABAL DRUG Active Other 2023-0 MD IN [facility] 3-14 Anderso 00:00: n 00 PREGABAL DRUG Active Other 2023-0 MD IN [facility] 3-14 Anderso 00:00: n 00 PREGABAL DRUG Active Other 2023-0 MD IN [facility] 3-14 Anderso 00:00: n 00 PREGABAL DRUG Active Other 2023-0 MD IN [facility] 3-14 Anderso 00:00: n 00 PREGABAL DRUG Active Other 2023-0 MD IN [facility] 3-14 Anderso 00:00: n 00 PREGABAL DRUG Active Other 2023-0 MD IN [facility] 3-14 Anderso 00:00: n 00 PREGABAL DRUG Active Other 2023-0 MD IN [facility] 3-14 Anderso 00:00: n 00 PREGABAL DRUG Active Other 2023-0 MD IN [facility] 3-14 Anderso 00:00: n 00 PREGABAL DRUG Active Other 2023-0 MD IN [facility] 3-14 Anderso 00:00: n 00 PREGABAL DRUG Active Other 2023-0 MD IN [facility] 3-14 Anderso 00:00: n 00 PREGABAL DRUG Active Other 2023-0 MD IN [facility] 3-14 Anderso 00:00: n 00 PREGABAL DRUG Active Other 2023-0 MD IN [facility] 3-14 Anderso 00:00: n 00 PREGABAL DRUG Active Other 2023-0 MD IN [facility] 3-14 Anderso 00:00: n 00 PREGABAL DRUG Active Other 2023-0 MD IN [facility] 3-14 Anderso 00:00: n 00 PREGABAL DRUG Active Other 2023-0 MD IN [facility] 3-14 Anderso 00:00: n 00 PREGABAL DRUG Active Other 2023-0 MD IN [facility] 3-14 Anderso 00:00: n 00 PREGABAL DRUG Active Other 2023-0 MD IN [facility] 3-14 Anderso 00:00: n 00 PREGABAL DRUG Active Other 2023-0 MD IN [facility] 3-14 Anderso 00:00: n 00 PREGABAL DRUG Active Other 2023-0 MD IN [facility] 3-14 Anderso 00:00: n 00 PREGABAL DRUG Active Other 2023-0 MD IN [facility] 3-14 Anderso 00:00: n 00 PREGABAL DRUG Active Other 2023-0 MD IN [facility] 3-14 Anderso 00:00: n 00 PREGABAL DRUG Active Other 2023-0 MD IN [facility] 3-14 Anderso 00:00: n 00 PREGABAL DRUG Active Other 2023-0 MD IN [facility] 3-14 Anderso 00:00: n 00 PREGABAL DRUG Active Other 2023-0 MD IN [facility] 3-14 Anderso 00:00: n 00 PREGABAL DRUG Active Other 2023-0 MD IN [facility] 3-14 Anderso 00:00: n 00 PREGABAL DRUG Active Other 2023-0 MD IN [facility] 3-14 Anderso 00:00: n 00 PREGABAL DRUG Active Other 2023-0 MD IN [facility] 3-14 Anderso 00:00: n 00 PREGABAL DRUG Active Other 2023-0 MD IN [facility] 3-14 Anderso 00:00: n 00 PREGABAL DRUG Active Other 2023-0 MD IN [facility] 3-14 Anderso 00:00: n 00 PREGABAL DRUG Active Other 2023-0 MD IN [facility] 3-14 Anderso 00:00: n 00 PREGABAL DRUG Active Other 2023-0 MD IN [facility] 3-14 Anderso 00:00: n 00 PREGABAL DRUG Active Other 2023-0 MD IN INGREDI 3-14 Anderso 00:00: n 00 PREGABAL DRUG Active Other 2023-0 MD IN INGREDI 3-14 Anderso 00:00: n 00 PREGABAL DRUG Active Other 2023-0 MD IN INGREDI 3-14 Anderso 00:00: n 00 PREGABAL DRUG Active Other 2023-0 MD IN INGREDI 3-14 Anderso 00:00: n 00 PREGABAL DRUG Active Other 2023-0 MD IN INGREDI 3-14 Anderso 00:00: n 00 PREGABAL DRUG Active Other 2023-0 MD IN INGREDI 3-14 Anderso 00:00: n 00 PREGABAL DRUG Active Other 2023-0 MD IN INGREDI 3-14 Anderso 00:00: n 00 PREGABAL DRUG Active Other 2023-0 MD IN INGREDI 3-14 Anderso 00:00: n 00 PREGABAL DRUG Active Other 2023-0 MD IN INGREDI 3-14 Anderso 00:00: n 00 PREGABAL DRUG Active Other 2023-0 MD IN INGREDI 3-14 Anderso 00:00: n 00 PREGABAL DRUG Active Other 2023-0 MD IN INGREDI 3-14 Anderso 00:00: n 00 PREGABAL DRUG Active Other 2023-0 MD IN INGREDI 3-14 Anderso 00:00: n 00 PREGABAL DRUG Active Other 2023-0 MD IN INGREDI 3-14 Anderso 00:00: n 00 PREGABAL DRUG Active Other 2023-0 MD IN INGREDI 3-14 Anderso 00:00: n 00 PREGABAL DRUG Active Other 2023-0 MD IN INGREDI 3-14 Anderso 00:00: n 00 PREGABAL DRUG Active Other 2023-0 MD IN INGREDI 3-14 Anderso 00:00: n 00 PREGABAL DRUG Active Other 2023-0 MD IN INGREDI 3-14 Anderso 00:00: n 00 PREGABAL DRUG Active Other 2023-0 MD IN INGREDI 3-14 Anderso 00:00: n 00 PREGABAL DRUG Active Other 2023-0 MD IN INGREDI 3-14 Anderso 00:00: n 00 PREGABAL DRUG Active Other 2023-0 MD IN INGREDI 3-14 Anderso 00:00: n 00 PREGABAL DRUG Active Other 2023-0 MD IN INGREDI 3-14 Anderso 00:00: n 00 PREGABAL DRUG Active Other 2023-0 MD IN INGREDI 3-14 Anderso 00:00: n 00 PREGABAL DRUG Active Other 2023-0 MD IN INGREDI 3-14 Anderso 00:00: n 00 PREGABAL DRUG Active Other 2023-0 MD IN INGREDI 3-14 Anderso 00:00: n 00 PREGABAL DRUG Active Other 2023-0 MD IN INGREDI 3-14 Anderso 00:00: n 00 PREGABAL DRUG Active Other 2023-0 MD IN INGREDI 3-14 Anderso 00:00: n 00 PREGABAL DRUG Active Other 2023-0 MD IN INGREDI 3-14 Anderso 00:00: n 00 PREGABAL DRUG Active Other 2023-0 MD IN INGREDI 3-14 Anderso 00:00: n 00 PREGABAL DRUG Active Other 2023-0 MD IN INGREDI 3-14 Anderso 00:00: n 00 PREGABAL DRUG Active Other 2023-0 MD IN INGREDI 3-14 Anderso 00:00: n 00 PREGABAL DRUG Active Other 2023-0 MD IN INGREDI 3-14 Anderso 00:00: n 00 PREGABAL DRUG Active Other 3-0 MD IN INGREDI 3-14 Anderso 00:00: n 00 PREGABAL DRUG Active Other 2023-0 MD IN INGREDI 3-14 Anderso 00:00: n 00 PREGABAL DRUG Active Other 2023-0 MD IN INGREDI 3-14 Anderso 00:00: n 00 PREGABAL DRUG Active Other 2023-0 MD IN INGREDI 3-14 Anderso 00:00: n 00 PREGABAL DRUG Active Other 2023-0 MD IN INGREDI 3-14 Anderso 00:00: n 00 PREGABAL DRUG Active Other 2023-0 MD IN INGREDI 3-14 Anderso 00:00: n 00 Pregabal Propensi Active Other (See depressio Univers in ty to Comments) 01-12 n ity of adverse 00:00: [place] reaction 00 MD anentte Rob [facility] ORANGE DRUG Active Low N/V 2021-11 Univers JUICE INGREDI 11-21 ity of 00:00: [place] 00 Medical Branch [place] Drug Active Nausea 2021-11 Univers Juice Allergy and/or 11-21 ity of Vomiting 00:00: [place] 00 Medical Branch [place] Propensi Active Other [facility] [place] ty to 07-08 reaction( College [place] adverse 00:00: s): of reaction 00 Nausea/Vo Medic in s to miting e drug Kiwi Propensi Active Other (See Bayl or Extract ty to Comments) 01-25 Colleg e adverse 00:00: of reaction 00 Medicin s to e drug KIWI Drug Active High Anaphylaxis MD (ACTINID Class 3-27 [place] 00:00: n CHINENSI 00 S) Kiwi Propensi Active Other - See Uni vers ty to comments 3 ity of adverse 00:00: [place] reaction 00 Medical s Branch KIWI DRUG Active Unknown-Cmnt Univ ers INGREDI 3 ity of 00:00: [place] 00 Medical Branch Kiwi Drug Active Other (See Univer s (Actinid Allergy Comments) 01-25 ity of ia 00:00: [place] Chinensi 00 MD pierce[facility] Propensi Active [place] ine ty to 06 College adverse 00:00: of reaction 00 Medicin s to e drug Metoclop Propensi Active [facility] ramide ty to 11-06 [place] adverse 00:00: of reaction 00 Medicin s to e drug ORANGE DRUG Active Low NandV MD JUICE INGREDI 6-18 [place]o 00:00: n 00 [place] Drug Active GI Univers Juice Allergy Intolerance 18 ity of 00:00: [place] 00 MD Liane olivier [facility] Center doxycycl DA Active U 2020-0 [facility] [place] 00:[facility]: d [facility] Center metoclop DA Active U 2020-0 [facility] ramide 2 [place] 00:00: d 00 [facility] doxycycl DA Active U VOMITING 2019-0 [facility] 2 [place] 00:00: d 00 [facility] metoclop DA Active U UNKNOWN 2019-0 [facility] ramide 2 [place] 00:00: d 00 [facility] [place] Propensi Active Nausea And 2018-0 And Kiwi [facility] ty to Vomiting 05-11 [place] adverse 00:00: of reaction 00 Medicin s to e drug ORANGE Allergy Active Med N\\T\\V 2018-[address] [facility] 00 [facility] [place] Propensi Active Nausea 2018-0 Univers ty to and/or 05-11 ity of adverse Vomiting 00:00: [place] reaction 00 Medical s Branch ORANGE DRUG Active Med N/V 2018-0 Univers INGREDI 7-11 ity of 00:00: [place] 00 [facility] [place] Drug Active Nausea And 2018-[address] [address] Allergy Vomiting [facility] Medical 00 Center DOXYCYCL Allergy Active High N\\T\\V 2015-0 [facility] [...] 00 DOXYCYCL DRUG Active High Nausea 2014-0 MD INE INGREDI 3-16 Anderso 00:00: n [...] n 00 METOCLOP DRUG Active High Nausea RAMRADHA INGREDI 16 Anderso 00:00: n 00 Doxycycl Propensi Active Nausea Univer s ine ty to and/or 316 ity of adverse Vomiting 00:00: [place] reaction 00 Medical s Branch Metoclop Propensi Active Unknown - Told by Un ally ba ty to See comments 01-14 anesthesi i ty of Hcl adverse 00:00: ologist [place] reaction 00 that she Medica l s should Branch add to her allergies following a procedure DOXYCYCL DRUG Active High N/V Univers INE INGREDI 16 ity of 00:00: [place] 00 Medical Branch METOCLOP DRUG Active Unknown-Cmnt Un ally RAMRADHA INGREDI 16 ity of HCL 00:00: [place] 00 Medical Branch METOCLOP DRUG Active High N/V Univers RAMIDE INGREDI 16 ity of 00:00: [place] 00 Medical Branch Doxycycl Drug Active Nausea And Other Univ ers ine Allergy Vomiting 16 reaction( ity of 00:00: s): [place] UnknownOt her Anderso reaction( n s): n/v, Cancer Nausea/Vo Center miting, Unknown Metoclop Drug Active Other (See Other Univ ers ramide Allergy Comments) 16 reaction( ity of 00:00: s): UNKNOWN, Unknown - Anderso See n commentsT Cancer old by Center anesthesi ologist that she should add to her allergies following a procedure Told by anesthesi ologist that she should add to her allergies following a procedure Told by anesthesi ologist that she should add to her allergies following a procedure NO KNOWN Allergy Active [facility] doxycycl doxycycl Active Memori a ine ine l [facility] Reglan Active [facility] Family History Family Member Diagnosis Comments Start Date Stop Date Source Cousin [facility] Natural father Diabetes [facility] Natural father Glaucoma [facility] Natural father Leukemia [facility] Maternal uncle Cancer [facility] Maternal uncle Colon cancer Universi ty of [facility] Natural mother -Unknown cancer Unive rsity of [facility] Natural mother Diabetes University [facility] Natural mother Glaucoma University of [facility] Paternal grandfather Diabetes Univ ersity of [facility] Paternal grandfather Leukemia Univ ersity of [facility] Paternal grandmother Diabetes Univ ersity of [facility] Natural sister Ovarian cancer Univer sity of [facility] Social History Social Habit Start Date Stop Date Quantity Comments Source History SDOH University o f Transport Non-Med [facility] Branch History of tobacco Current smoker Un iversity of use [place] MD Ruelas [facility] Exposure to 2023-03-01 2023-03-11 Not sure University of SARS-CoV-2 (event) 00:00:00 11:06:00 [facility] Alcohol intake 2023-02-07 2023-02-07 Ex-drinker University of 00:00:00 00:00:00 (finding) [place] [facility] Cigarettes smoked 2022-11-26 2022-11-26 Univers ity of current (pack per 00:00:00 00:00:00 [facility] ) - Reported Cancer Ce nter Cigarette 2022-11-26 2022-11-26 University of pack-years 00:00:00 00:00:00 [place] MD Ruelas [facility] Tobacco use and 2022-11-26 2022-11-26 Smokeless Universit y of exposure 00:00:00 00:00:00 tobacco non-user [facility] Tobacco Comment 2022-01-08 2022-01-08 only as teenager [facility] 00:00:00 00:00:00 Medical Center History SDOH Social 2019-08-25 2019-08-25 3 Unive rsity of Connections Phone 00:00:00 00:00:00 [facility] SDOH Social 2019-08-25 2019-08-25 1 Unive rsity of Connections Get 00:00:00 00:00:00 [place] Med ical Together Branch History SDOH Social 2019-08-25 2019-08-25 1 Unive rsity of Connections Cheondoism 00:00:00 00:00:00 [place] Medical Branch History SDOH Social 2019-08-25 2019-08-25 [...] 00:00:00 [place] M edical MPS Branch History SDWV Stress 2019-08-25 2019-08-25 3 Unive rsity of [...] Medic al Branch Social History 2015-11-07 2015-11-[address] [facility] Vickie logan 16:48:16 16:48:16 Sex [birth year] At [birth year] CARMEN Hilario 00:00:00 00:00:00 Medical Center Smoking Status Start Date Stop Date Source Ex-smoker 2022-11-26 00:00:00 2022-11-26 00:00:00 Universi ty of [place] MD [facility] Never smoked tobacco [facility] ege of Medicine Medications Ordered Filled Start Stop Current Ordering Indication Dosage Frequency Signature Comments Components Source Medication Medication Date Date Medication? Clinician (SIG) Name Name HYDROcodone Yes 2745 1{tbl} Take 1 Un ally -acetaminop 5-04 tablet by ity of hen 7.5-325 00:00: mouth [place] mg per 00 every 6 Medical tablet (six) Branch hours as needed for Pain. Indication s: chronic pain oxyCODONE-a Yes Cancer 1{tbl} Take 1 Univers cetaminophe 5-04 associated tablet by ity of n 00:00: pain mouth 2 [place] (Percocet) 00 (two) MD 5 mg-325 mg times a Suarj so per tablet day as n needed for Cancer severe Center pain. lisinopril Yes 40mg Take 1 Unive rs (PRINIVIL,Z 5-03 tablet (40 it y of ESTRIL) 40 11:42: mg) by [place] mg tablet 53 mouth MD every Anderso morning. Cancer Center allopurinol Yes prevention 300mg Take 1 Univers (ZYLOPRIM) 5-03 of acute tablet ity of 300 mg 11:42: gout attack (300 mg) [place] tablet 53 by mouth MD twice Anderso daily. Cancer [place] colchicine Yes prevention .6mg Take 1 Univers (COLCRYS) 5-03 of acute tablet ity of 0.6 mg 11:42: gout attack (0.6 mg) [place] tablet 53 by mouth MD daily. Anderso [facility] Center dicyclomine Yes 10mg Take 1 Univ ers (BENTYL) 10 5-03 capsule ity o f mg capsule 11:42: (10 mg) by [place] 53 mouth 3 MD (three) Anderso times a n day. Cancer Center gabapentin Yes Chronic TAKE 1 Un ally (NEURONTIN) 5-02 pain TABLET(800 it y of 800 mg 00:00: MG) BY [place] tablet 00 MOUTH MD EVERY 8 Anderso HOURS n Cancer Center pseudoephed Yes Chronic 30mg Take 1 [facility] pain tablet (30 ity of (Sudafed) 00:00: mg) by [place] 30 mg 00 mouth MD tablet every 8 Anderso (eight) n hours as Cancer needed for Center congestion . METOPROLOL Yes TAKE 1 Unive rs TARTRATE 4-26 TABLET BY ity of 100 mg 00:00: MOUTH [place] tablet 00 TWICE Medical DAILY Branch METOPROLOL Yes TAKE 1 Unive rs TARTRATE 4-26 TABLET BY ity of 100 mg 00:00: MOUTH [place] tablet 00 TWICE Medical DAILY Branch hydrALAZINE 2022- No hypertensio 100mg Take 1 Univers (APRESOLINE 4-18 -18 n tablet ity o f ) 100 mg 16:41: 00:00 (100 mg) [place] tablet 23 :00 by mouth 3 MD (three) Anderso times a n day. Cancer Center hydroCHLORO 2022- No 12.5mg Take 1 U [facility] thiazide -18 -18 capsule ity of (MICROZIDE) 16:41: 00:00 (12.5 mg) [place] 12.5 mg 23 :00 by mouth MD capsule every Anderso morning. n Cancer Center cloNIDine 2022- No .2mg Take 1 Unive rs HCl -18 -18 tablet ity of (CATAPRES) 16:41: 00:00 (0.2 mg) [place] 0.2 mg 23 :00 by mouth 3 MD tablet (three) Anderso times a n day as Cancer needed. Center insulin Yes Type 2 Inject Univer s regular hum 4-18 diabetes 70-180 it y of U-500 conc 00:00: mellitus Units [place] (HumuLIN R 00 without under the M D U-500, complicatio skin daily Anderso Conc, n with n Kwikpen) breakfast Cancer 500 unit/mL AND 40-105 Ce nter (3 mL) Units insulin pen daily before lunch AND 35-95 Units daily before dinner. levoFLOXaci 2023-0 2023- No Deep venous 750mg Take 1 Univers n 02-1622 thrombosis tablet ity of (LEVAQUIN) 00:00: 04:59 <Unspecifie (750 mg) [place] 750 mg 00 :00 d side> by mouth MD tablet daily for Anderso 3 days. n Cancer Center enoxaparin Yes Deep venous 120mg Inject 0.8 Univers (LOVENOX) 14 thrombosis mL (120 i ty of 120 mg/0.8 00:00: <Unspecifie mg) under [place] mL 00 d side> the skin MD prefilled every 12 Lauri o syringe (twelve) n hours. Cancer Center oxyCODONE-a 2022- No Neoplasm 1{tbl} Take 1 Univers cetaminophe 02-12 related tablet by ity of n 00:00: 00:00 pain mouth [place] (Percocet) 00 :00 (acute) every 6 MD 7.5-325 mg (chronic) (six) And erso per tablet hours as n needed for Cancer severe Center pain for up to 45 days. lidocaine Yes Adenocarcin 5mL Swish and Univers (XYLOCAINE) 06 yanely of swallow 5 i ty of 20 mg/mL 00:00: nasopharynx mL every 6 [place] (2%) 00 (six) MD viscous hours as Anderso solution needed n (painful Cancer swallowing Center ). fluticasone Yes Adenoid 100ug Inhale 2 Univers propionate 06 cystic sprays ity o f (FLONASE) 00:00: carcinoma (100 mcg) [place] 50 00 of into each MD mcg/spray nasopharynx nostril Anderso nasal spray , NOS twice n daily. Cancer Center ondansetron 2023- Yes Adenoid 8mg Take 1 Univers (ZOFRAN) 8 02-04 04-06 cystic tablet (8 i ty of mg tablet 00:00: 04:59 carcinoma mg) by [place] 00 :00 of mouth MD nasopharynx every 8 Suraj so , NOS (eight) n hours as Cancer needed for Center nausea or vomiting. insulin 2022- No Type 2 USE Unive rs syringe-nee 02-02 diabetes DIRECTED ity of dle U-100 1 00:00: 00:00 mellitus FOUR TIMES [place] mL 31 gauge 00 :00 with DAILY MD x 03/16 syrg hyperglycem A nderso ia n [facility] Center oxyCODONE-a 2022- No Chronic 1{tbl} Take 1 Univers cetaminophe 02-01 pain tablet by it y of n 00:00: 00:00 mouth [place] (PERCOCET) 00 :00 every 6 MD 7.5-325 mg (six) Anderso per tablet hours as n needed for Cancer severe Center pain. gabapentin 2022- No Chronic 800mg Take 1 Univers (NEURONTIN) 02-01 pain tablet ity o f 800 mg 00:00: 00:00 (800 mg) [place] tablet 00 :00 by mouth MD every 8 Anderso (eight) n hours. [facility] pen needle, Yes Type 2 Use to Un ally diabetic 01-31 diabetes inject ity o f (Easy 00:00: mellitus insulin 4 Frankie as Comfort Pen 00 with times a MD [place]) 31 hyperglycem day A nderso gauge x ia n 03/16" ndle [facility] insulin 2022- No Type 2 Inject 5 Uni vers regular 01-3118 diabetes units to ity of (HumuLIN R 00:00: 00:00 mellitus 25 units [place] Regular 00 :00 with with meals U-100 hyperglycem as needed An derso Insuln) 100 ia for blood n units/mL sugar Cancer injection greater Center than 150 mg/dL insulin 2022- No Type 2 50U Inject 50 Un ally regular hum 01-31 diabetes to 125 i ty of U-500 conc 00:00: 00:00 mellitus Units [place] (HumuLIN R 00 :00 without under the M D U-500, complicatio skin 3 Bandar rso Conc, n (three) n Kwikpen) times a Cancer 500 unit/mL day, Center (3 mL) before insulin pen meals. Inject as instructed at discharge. pen needle, 2022- No Use as Uni vers diabetic 01-31 directed. 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 n another Cancer dose into Center the other nostril after 2 minutes if the patient does not respond xyloxylin No Ulcerative 10mL Swish and Univers oral 01-2018 oral swallow 10 ity of suspension 00:00: 00:00 mucositis mL 2 (two) Be[place] (AMB-CMPD) 00 :00 due to times a MD antineoplas day as Lauri o tic therapy needed for n mouth Cancer pain. [place] hydrALAZINE No 100mg Take 1 Un ally (APRESOLINE -20 -20 tablet ity o f ) 100 mg 19:34: 00:00 (100 mg) [place] tablet 54 :00 by mouth 3 MD (three) Anderso times a n day. Cancer Center metFORMIN No 1000mg Take 1 Uni vers (GLUCOPHAGE -20 -20 tablet ity o f ) 1000 mg 19:34: 00:00 (1,000 mg) [place] tablet 54 :00 by mouth 2 MD (two) Anderso times a n day with Cancer meals. [place] spironolact No 25mg Take 1 Uni vers one -20 -20 tablet (25 ity of (ALDACTONE) 19:34: 00:00 mg) by [place]ie as 25 mg 54 :00 mouth MD tablet daily. Anderso n Cancer Center metoprolol No Hypertensio 50mg Take 1 Univers tartrate 01-18-20 n tablet (50 ity of (LOPRESSOR) 00:00: 04:59 mg) by [place]ie as 50 mg 00 :00 mouth MD tablet twice Anderso daily for n 30 days. Cancer [place] sucralfate No Ulcerative 1000mg Take 10 mL Univers (CARAFATE) 01-1818 oral (1,000 mg) it y of 100 mg/mL 00:00: 00:00 mucositis by mouth 4 [place] suspension 00 :00 due to (four) MD antineoplas times a Suraj so tic therapy day. n Cancer Center UNABLE TO 2022- No Compound Uni vers FIND 01-18 Drug ity of 00:00: 00:00 [place] 00 :00 MD Liane olivier Cancer Center oxyCODONE-a 2022- No Neoplasm 1{tbl} Take 1 Univers cetaminophe 01-18 related tablet by ity of n 00:00: 00:00 pain mouth [place] (Percocet) 00 :00 (acute) every 6 MD 5 mg-325 mg (chronic) (six) An derso per tablet hours as n needed for Cancer severe Center pain. insulin 2022- No Type 2 50U Inject 50 Un ally regular hum 01-18 diabetes to 125 i ty of U-500 conc 00:00: 00:00 mellitus Units [place] (HumuLIN R 00 :00 without under the M D U-500, complicatio skin 3 Bandar rso Conc, n (three) n Kwikpen) times a Cancer 500 unit/mL day, Center (3 mL) before insulin pen meals. Inject as instructed at discharge. pen needle, 2022- Use as Uni vers diabetic 01-18 directed. ity o f needle 00:00: 14:58 [place] 00 :12 MD Liane olivier [facility] cyclobenzap 2022- No Cancer 10mg Take 1 U nivers rine 01-18 associated tablet (10 it y of (FLEXERIL) 00:00: 00:00 pain mg) by Paul pierce 10 mg 00 :00 mouth 3 MD tablet (three) Anderso times a n day as Cancer needed for Center muscle spasms (neck pain). xyloxylin No Ulcerative 10mL Swish and Univers oral 01-18 oral swallow 10 ity of suspension 00:00: 00:00 mucositis mL by Bere (AMB-CMPD) 00 :00 due to mouth antineoplas every 6 Suraj so tic therapy (six) n hours as Cancer needed for Center mouth pain. oxyCODONE-a 2022- No Neoplasm 1{tbl} Take 1 Univers cetaminophe 01-18 related tablet by ity of n 00:00: 00:00 pain mouth [place] (Percocet) 00 :00 (acute) every 4 MD 5 mg-325 mg (chronic) (four) A nderso per tablet hours as n needed for Cancer moderate Center pain. xyloxylin 2022- No Ulcerative 10mL Swish and Univers oral 3-20 -20 oral swallow 10 ity of suspension 00:00: 00:00 mucositis mL every 6 [place] (AMB-CMPD) 00 :00 due to (six) MD antineoplas hours as Bandar rso tic therapy needed for n mouth Cancer pain. Center sucralfate 2022- No Ulcerative 1000mg Take 10 mL Univers (CARAFATE) 01-18-20 oral (1,000 mg) it y of 100 mg/mL 00:00: 00:00 mucositis by mouth 4 [place] suspension 00 :00 due to (four) MD antineoplas times a Suraj so tic therapy day. n Cancer Center metoprolol 2022- No Hypertensio 50mg Take 1 Univers tartrate 01-18-20 n tablet (50 ity of (LOPRESSOR) 00:00: 00:00 mg) by Frankie as 50 mg 00 :00 mouth MD tablet twice Anderso daily for n 30 days. Cancer Center sucralfate 2022- No Ulcerative 1000mg Take 10 mL Univers (CARAFATE) 01-18-20 oral (1,000 mg) it y of 100 mg/mL 00:00: 00:00 mucositis by mouth 4 [place] suspension 00 :00 due to (four) MD antineoplas times a Suraj so tic therapy day. n Cancer Center xyloxylin 2022- No Ulcerative 10mL Swish and Univers oral 01-18-20 oral swallow 10 ity of suspension 00:00: 00:00 mucositis mL every 6 [place] (AMB-CMPD) 00 :00 due to (six) MD antineoplas hours as Bandar rso tic therapy needed for n mouth Cancer pain. Center lidocaine 2022- No Adenocarcin 5mL Swish and Univers (XYLOCAINE) 3-20 yanely of swallow 5 ity of 20 mg/mL 00:00: 00:00 nasopharynx mL every 6 [place] (2%) 00 :00 (six) MD viscous hours as Anderso solution needed n (painful Cancer swallowing Center ). oxyCODONE-a 2022- No Neoplasm 1{tbl} Take 1 Univers cetaminophe 01-0114 related tablet by ity of n 00:00: 00:00 pain mouth [place] (Percocet) 00 :00 (acute) every 4 MD 5 mg-325 mg (chronic) (four) A nderso per tablet hours as n needed for Cancer moderate Center pain. cyclobenzap 2022- No Cancer 10mg Take 1 U nivers rine 12-30-20 associated tablet (10 it y of (FLEXERIL) 00:00: 00:00 pain mg) by [place] 10 mg 00 :00 mouth 3 MD tablet (three) Anderso times a n day as Cancer needed for Center muscle spasms (neck pain). pseudoephed No Cancer 30mg Take 1 U nivers rine 12-30 associated tablet (30 it y of (Sudafed) 00:00: 00:00 pain mg) by [place] 30 mg 00 :00 mouth 2 MD tablet (two) Anderso times a n day as Cancer needed for Center congestion . HYDROcodone Yes 2745 1{tbl} Take 1 Un ally -acetaminop 2-23 tablet by ity of hen 7.5-325 00:00: mouth [place] mg per 00 every 6 Medical tablet (six) Branch hours as needed for Pain. Indication s: chronic pain HYDROcodone Yes 2745 1{tbl} Take 1 Un ally -acetaminop 2-23 tablet by ity of hen 7.5-325 00:00: mouth [place] mg per 00 every 6 Medical tablet (six) Branch hours as needed for Pain. Indication s: chronic pain HYDROcodone 2022- No 2745 1{tbl} Take 1 U nivers -acetaminop 2-23 05-04 tablet by it y of hen 7.5-325 00:00: 00:00 mouth [place] mg per 00 :00 every 6 Medical tablet (six) Branch hours as needed for Pain. Indication s: chronic pain sodium 2022- No Adenoid Inject 10 Un ally chloride 2-22 04-18 cystic mL (1 ity of (NS) 0.9% 00:00: 00:00 carcinoma syringe) [place] flush 00 :00 of into each MD syringe 10 nasopharynx lumen of Anderso mL , NOS central n venous Cancer catheter Center daily as directed. ondansetron 2022- No Adenocarcin 8mg Dissolve 1 Univers (ZOFRAN-ODT 217 02-17 yanely of tablet (8 ity of ) 8 mg 00:00: 00:00 nasopharynx mg) on the [place] disintegrat 00 :00 tongue MD ing tablet every 8 Lauri o (eight) n hours as Cancer needed for Center nausea. prochlorper Yes Adenoid 10mg Take 1 U nivers azine 2-16 cystic tablet (10 ity of (Compazine) 00:00: carcinoma mg) by [place] 10 mg 00 of mouth MD tablet nasopharynx every 6 And erso , NOS (six) n hours as Cancer needed for Center nausea or vomiting (if not controlled by Ondansetro n). ondansetron 2022- No Adenoid 8mg Take 1 Univers (ZOFRAN) 8 16 04-06 cystic tablet (8 i ty of mg tablet 00:00: 00:00 carcinoma mg) by [place] 00 :00 of mouth MD nasopharynx every 8 Suraj so , NOS (eight) n hours as Cancer needed for Center nausea or vomiting. fluoride, 2022- No Adenoid Apply to Univers sodium, 2-15 03-14 cystic teeth ity of (DENTAGEL) 00:00: 00:00 carcinoma daily for [place] 1.1% dental 00 :00 of 30 days. gel nasopharynx Anderso , NOS n Cancer Center celecoxib 2022- No Headache, 200mg Take 1 Univers (CeleBREX) 2-15 03-01 not capsule ity o f 200 mg 00:00: 00:00 otherwise (200 mg) [place] capsule 00 :00 specified by mouth MD daily. Anderso n Cancer Center Victoza Yes Type 2 1.8mg Inject 0.3 U nivers 2-Patrick 0.6 2-14 diabetes mL (1.8 ity of mg/0.1 mL 00:00: mellitus mg) under [place] (18 mg/3 00 without the skin MD mL) pnij complicatio daily. An derso injection n n Cancer Center BD Devorah 2nd No Type 2 1{devic Inject 1 Univers Gen Pen 12-15 diabetes e} Device ity o f Needle 32 00:00: 00:00 mellitus under the [place] gauge x 00 :00 without skin 3 " ndle complicatio (three) Anderso n times a n day before Cancer meals. Center gabapentin Headache, 600mg Take 1 [facility] (NEURONTIN) 12-15 not tablet ity o f 600 mg 00:00: 00:00 otherwise (600 mg) [place] tablet 00 :00 specified by mouth MD every 8 Anderso (eight) n hours. Cancer Center metoprolol Hypertensio 50mg Take 1 [facility] tartrate 12-15 n tablet (50 ity of (LOPRESSOR) 00:00: 00:00 mg) by [place] as 50 mg 00 :00 mouth MD tablet twice [place] daily for n 30 days. Cancer Center insulin No Type 2 110U Inject Unive rs regular hum 12-15 diabetes 110-160 ity of U-500 conc 00:00: 00:00 mellitus Units [place] (HumuLIN R 00 :00 without under the M D U-500, complicatio skin 3 [facility] Conc, n (three) n Kwikpen) times a Cancer 500 unit/mL day before Ce nter (3 mL) meals. insulin pen oxyCODONE-a No Neoplasm 1{tbl} Take 1 [facility] cetaminophe 12-15 related tablet by ity of n 00:00: 00:00 pain mouth [place] (Percocet) 00 :00 (acute) every 4 MD 5 mg-325 mg (chronic) (four) A nderso per tablet hours as n needed for Cancer moderate Center pain. insulin No Type 2 110U Inject 110 U nivers regular hum 12-15 diabetes to 160 i ty of U-500 conc 00:00: 00:00 mellitus Units [place] (HumuLIN R 00 :00 without under the M D U-500, complicatio skin 3 [facility] [facility] Conc, n (three) n Kwikpen) times a Cancer 500 unit/mL day before Ce nter (3 mL) meals. insulin pen pantoprazol 2022- No Gastroesoph 40mg Take 1 Univers e 12-1514 ageal tablet (40 ity of (Protonix) 00:00: 00:00 reflux mg) by [place] 40 mg EC 00 :00 disease mouth MD tablet every [place] morning n before Cancer breakfast Center for 30 days. dexamethaso 2022- No Adenocarcin 2mg Take 1 Univers ne 12-05-14 yanely of tablet (2 ity of (DECADRON) 00:00: 00:00 nasopharynx mg) by [place] 2 mg tablet 00 :00 mouth MD twice [place] daily. n Cancer Center HYDROmorpho 2022- No Adenocarcin 2mg Take 1 Univers ne 12-0214 yanely of tablet (2 ity of (DILAUDID) 00:00: 00:00 nasopharynx mg) by [place] 2 mg tablet 00 :00 mouth MD every 4 Anderso (four) n hours as Cancer needed Center (cancer pain). ondansetron 2022- No Adenocarcin 8mg Dissolve 1 Univers (ZOFRAN-ODT 11-2617 yanely of tablet (8 ity of ) 8 mg 00:00: 00:00 nasopharynx mg) on the [place] disintegrat 00 :00 tongue MD ing tablet every 8 Lauri o (eight) n hours as Cancer needed for Center nausea. HYDROcodone Yes 2745 1{tbl} Take 1 Un [...] Pain. Indication s: chronic pain colchicine Yes [id number] .6mg Take 1 U nivers 0.6 mg 1-18 tablet by ity of tablet 00:00: mouth in [place] 00 the Medical morning. Branch HYDROcodone 2022-0 Yes 2745 1{tbl} Take 1 Un ally -acetaminop 1-18 tablet by ity of hen 7.5-325 00:00: mouth [place] mg per 00 every 6 Medical tablet (six) Branch hours as needed for Pain. Indication s: chronic pain colchicine 2022-0 Yes [id number] .6mg Take 1 U nivers 0.6 mg 1-18 tablet by ity of tablet 00:00: mouth in [place] 00 the Medical morning. Branch colchicine 2022-0 Yes [id number] .6mg Take 1 U nivers 0.6 mg 1-18 tablet by ity of tablet 00:00: mouth in [place] 00 the Medical morning. Branch colchicine 2022-0 Yes [id number] .6mg Take 1 U nivers 0.6 mg 1-18 tablet by ity of tablet 00:00: mouth in [place] 00 the Medical morning. Branch colchicine 0 Yes [id number] .6mg Take 1 U nivers 0.6 mg 1-18 tablet by ity of tablet 00:00: mouth in [place] 00 the Medical morning. Branch HYDROcodone 2022-2022- No 2745 1{tbl} Take 1 U nivers -acetaminop 1-18 12-24 tablet by it y of hen 7.5-325 00:00: 00:00 mouth [place] mg per 00 :00 every 6 Medical tablet (six) Branch hours as needed for Pain. Indication s: chronic pain HumuLIN 2022-0 2022- No Univers 70/30 U-100 -16 -14 ity of Insulin 100 00:00: 00:00 [place] unit/mL 00 :00 (70-30) Anderso injection [facility] HYDROCHLORO 2022-0 Yes [id number] 12.5mg TAKE 1 Univers THIAZIDE 1-09 CAPSULE BY ity o f 12.5 mg 00:00: MOUTH [place] capsule 00 DAILY Medical Branch LISINOPRIL 2022-0 Yes [id number] TAKE 1/2 Univers 40 mg -09 TABLET BY ity of tablet 00:00: MOUTH [place] 00 TWICE Medical DAILY Branch HYDRALAZINE 2022-0 Yes [id number] TAKE 1 Univers 100 mg 1-09 TABLET BY ity of tablet 00:00: MOUTH [place] 00 THREE Medical TIMES Branch DAILY HYDROCHLORO 2023-0 Yes [id number] 12.5mg TAKE 1 [facility] THIAZIDE 1-09 CAPSULE BY ity o f 12.5 mg 00:00: MOUTH [place] capsule 00 DAILY Medical Branch LISINOPRIL 2023-0 Yes [id number] TAKE 1/2 [facility] 40 mg 1-09 TABLET BY ity of tablet 00:00: MOUTH [place] 00 TWICE Medical DAILY Branch HYDRALAZINE 2023-0 Yes [id number] TAKE 1 [facility] 100 mg 1-09 TABLET BY ity of tablet 00:00: MOUTH [place] 00 THREE Medical TIMES Branch DAILY HYDROCHLORO 2023-0 Yes [id number] 12.5mg TAKE 1 [facility] THIAZIDE 1-09 CAPSULE BY ity o f 12.5 mg 00:00: MOUTH [place] capsule 00 DAILY Medical Branch LISINOPRIL 2023-0 Yes [id number] TAKE 1/2 [facility] 40 mg 1-09 TABLET BY ity of tablet 00:00: MOUTH [place] 00 TWICE Medical DAILY Branch HYDRALAZINE 2023-0 Yes [id number] TAKE 1 [facility] 100 mg 1-09 TABLET BY ity of tablet 00:00: MOUTH [place] THREE Medical TIMES Branch DAILY HYDROCHLORO 2023-0 Yes [id number] 12.5mg TAKE 1 [facility] THIAZIDE 1-09 CAPSULE BY ity o f 12.5 mg 00:00: MOUTH [place] capsule 00 DAILY Medical Branch LISINOPRIL 2023-0 Yes [id number] TAKE 1/2 [facility] 40 mg 1-09 TABLET BY ity of tablet 00:00: MOUTH [place] 00 TWICE Medical DAILY Branch HYDRALAZINE 2023-0 Yes [id number] TAKE 1 [facility] 100 mg 1-09 TABLET BY ity of tablet 00:00: MOUTH [place] 00 THREE Medical TIMES Branch DAILY HYDROCHLORO 2023-0 Yes [id number] 12.5mg TAKE 1 [facility] THIAZIDE 1-09 CAPSULE BY ity o f 12.5 mg 00:00: MOUTH [place] capsule 00 DAILY Medical Branch LISINOPRIL 2023-0 Yes [id number] TAKE 1/2 [facility] 40 mg 1-09 TABLET BY ity of tablet 00:00: MOUTH [place] 00 TWICE Medical DAILY Branch HYDRALAZINE 2023-0 Yes [id number] TAKE 1 [facility] 100 mg 1-09 TABLET BY ity of tablet 00:00: MOUTH [place] 00 THREE Medical TIMES Branch DAILY HYDROCHLORO 2022-0 Yes [id number] 12.5mg TAKE 1 [facility] THIAZIDE 1-09 CAPSULE BY ity o f 12.5 mg 00:00: MOUTH [place] capsule 00 DAILY Medical Branch LISINOPRIL 2022-0 Yes [id number] TAKE 1/2 [facility] 40 mg 1-09 TABLET BY ity of tablet 00:00: MOUTH [place] 00 TWICE Medical DAILY Branch HYDRALAZINE 2022-0 Yes [id number] TAKE 1 [facility] 100 mg 1-09 TABLET BY ity of tablet 00:00: MOUTH [place] THREE Medical TIMES Branch DAILY HYDROCHLORO 2022-0 Yes [id number] 12.5mg TAKE 1 [facility] THIAZIDE 1-09 CAPSULE BY ity o f 12.5 mg 00:00: MOUTH [place] capsule 00 DAILY Medical Branch LISINOPRIL 2022-0 Yes [id number] TAKE 1/2 [facility] 40 mg 1-09 TABLET BY ity of tablet 00:00: MOUTH [place] 00 TWICE Medical DAILY Branch HYDRALAZINE 2022-0 Yes [id number] TAKE 1 [facility] 100 mg 1-09 TABLET BY ity of tablet 00:00: MOUTH [place] THREE Medical TIMES Branch DAILY HYDROCHLORO 2022-0 Yes [id number] 12.5mg TAKE 1 [facility] THIAZIDE 1-09 CAPSULE BY ity o f 12.5 mg 00:00: MOUTH [place] capsule 00 DAILY Medical Branch LISINOPRIL 2022-0 Yes [id number] TAKE 1/2 [facility] 40 mg 1-09 TABLET BY ity of tablet 00:00: MOUTH [place] TWICE Medical DAILY Branch HYDRALAZINE 2022-0 Yes [id number] TAKE 1 [facility] 100 mg 1-09 TABLET BY ity of tablet 00:00: MOUTH [place] 00 THREE Medical TIMES Branch DAILY hydroCHLORO 2022-0 2022- No 12.5mg 1 capsule [facility] thiazide -07 04-23 (12.5 mg) ity o f (MICROZIDE) 00:00: 00:00 every [place] 12.5 mg 00 :00 morning. capsule Liane [facility] cloNIDine 2022-0 2022- No TAKE 1 Unive rs HCl -07 04-20 TABLET BY ity of (CATAPRES) 00:00: 00:00 MOUTH [place] 0.2 mg 00 :00 THREE MD tablet TIMES Andevelin GAMBINO [facility] hydrocortis 2022- No UNWRAP AND Univers one 11-0614 INSERT ONE ity of (ANUSOL-HC) 00:00: 00:00 (1) [place] 25 mg 00 :00 SUPPOSITOR suppository Y IN THE [place] [facility] RECTUM n TWICE A Cancer DAY. [place] METOPROLOL Yes TAKE 1 Unive rs TARTRATE 1-03 TABLET BY ity of 100 mg 00:00: MOUTH [place] tablet 00 TWICE Medical DAILY Branch METOPROLOL Yes TAKE 1 Unive rs TARTRATE 1-03 TABLET BY ity of 100 mg 00:00: MOUTH [place] tablet 00 TWICE Medical DAILY Branch METOPROLOL Yes TAKE 1 Unive rs TARTRATE 1-03 TABLET BY ity of 100 mg 00:00: MOUTH [place] tablet 00 TWICE Medical DAILY Branch METOPROLOL Yes TAKE 1 Unive rs TARTRATE 1-03 TABLET BY ity of 100 mg 00:00: MOUTH [place] tablet 00 TWICE Medical DAILY Branch METOPROLOL Yes TAKE 1 Unive rs TARTRATE 1-03 TABLET BY ity of 100 mg 00:00: MOUTH [place] tablet 00 TWICE Medical DAILY Branch METOPROLOL Yes TAKE 1 Unive rs TARTRATE 1-03 TABLET BY ity of 100 mg 00:00: MOUTH [place] tablet 00 TWICE Medical DAILY Branch METOPROLOL Yes TAKE 1 Unive rs TARTRATE 1-03 TABLET BY ity of 100 mg 00:00: MOUTH [place] tablet 00 TWICE Medical DAILY Branch METOPROLOL Yes TAKE 1 Unive rs TARTRATE 1-03 TABLET BY ity of 100 mg 00:00: MOUTH [place] tablet 00 TWICE Medical DAILY Branch METOPROLOL 2022- No TAKE 1 Univ ers TARTRATE 1-03 -26 TABLET BY ity o f 100 mg 00:00: 00:00 MOUTH [place] tablet 00 :00 TWICE Medical DAILY Branch metoprolol 2022- No TAKE 1 Univ ers tartrate 1-03 -14 TABLET BY ity o f (LOPRESSOR) 00:00: 00:00 MOUTH [place] 100 mg 00 :00 TWICE MD tablet DAILY [facility] METOPROLOL 2022- No TAKE 1 Univ ers TARTRATE 1-03 01-03 TABLET BY ity o f 100 mg 00:00: 00:00 MOUTH [place] tablet 00 :00 TWICE Medical DAILY Branch cetirizine 2021-113- No TAKE 1 Univ ers (ZyrTEC) 10 03-14 TABLET BY it y of mg tablet 00:00: 00:00 MOUTH ONCE [place] 00 :00 DAILY MD NEEDED FOR [place]o ALLERGIES [facility] gabapentin 2021-11 Yes [id number] 600mg Take 1 Univers 600 mg 2-21 tablet by ity of tablet 00:00: mouth in [place] 00 the Medical morning Branch and 1 tablet at noon and 1 tablet in the evening. HYDROcodone 2021-11 Yes [id number] 1{tbl} Take 1 Un ally -acetaminop 2-21 tablet by ity of hen 7.5-325 00:00: mouth [place] mg per 00 every 6 Medical tablet (six) Branch hours as needed for Pain. Indication s: chronic pain Diclofenac 2021-11 Yes [id number] Apply to Univers Sodium 1 % 2-21 area(s) 3 ity of gel 00:00: (three) [place] 00 times Medical daily. Branch gabapentin 2021-11 Yes [id number] 600mg Take 1 [facility] 600 mg 2-21 tablet by ity of tablet 00:00: mouth in [place] 00 the Medical morning Branch and 1 tablet at noon and 1 tablet in the evening. HYDROcodone 2021-11 Yes [id number] 1{tbl} Take 1 Un ally -acetaminop 2-21 tablet by ity of hen 7.5-325 00:00: mouth [place] mg per 00 every 6 Medical tablet (six) Branch hours as needed for Pain. Indication s: chronic pain Diclofenac 2021-11 Yes [id number] Apply to Univers Sodium 1 % 2-21 area(s) 3 ity of gel 00:00: (three) [place] 00 times Medical daily. Branch gabapentin 2021-11 Yes [id number] 600mg Take 1 [facility] 600 mg 2-21 tablet by ity of tablet 00:00: mouth in [place] 00 the Medical morning Branch and 1 tablet at noon and 1 tablet in the evening. HYDROcodone 2021-11 Yes [id number] 1{tbl} Take 1 Un ally -acetaminop 2-21 tablet by ity of hen 7.5-325 00:00: mouth [place] mg per 00 every 6 Medical tablet (six) Branch hours as needed for Pain. Indication s: chronic pain Diclofenac 2021-11 Yes [id number] Apply to Univers Sodium 1 % 2-21 area(s) 3 ity of gel 00:00: (three) [place] 00 times Medical daily. Branch gabapentin 2021-11 Yes [id number] 600mg Take 1 [facility] 600 mg 2-21 [...] Indication s: chronic pain Diclofenac 2021-11 Yes [id number] Apply to Univers Sodium 1 % 2-21 area(s) 3 ity of gel 00:00: (three) [place] 00 times Medical daily. Branch gabapentin 2021-11 Yes [id number] 600mg Take 1 [facility] 600 mg 2-21 [...] Indication s: chronic pain Diclofenac 2021-11 Yes [id number] Apply to Univers Sodium 1 % 2-21 area(s) 3 ity of gel 00:00: (three) [place] 00 times Medical daily. Branch gabapentin 2021-11 Yes [id number] 600mg Take 1 [facility] 600 mg 2-21 tablet by ity of tablet 00:00: mouth in [place] 00 the Medical morning Branch and 1 tablet at noon and 1 tablet in the evening. HYDROcodone 2021-11 Yes [id number] 1{tbl} Take 1 Un ally -acetaminop 2-21 tablet by ity of hen 7.5-325 00:00: mouth [place] mg per 00 every 6 Medical tablet (six) Branch hours as needed for Pain. Indication s: chronic pain Diclofenac 2021-11 Yes [id number] Apply to Univers Sodium 1 % 2-21 area(s) 3 ity of gel 00:00: (three) [place] 00 times Medical daily. Branch gabapentin 2021- Yes [id number] 600mg Take 1 [facility] 600 mg 2-21 tablet by ity of tablet 00:00: mouth in [place] 00 the Medical morning Branch and 1 tablet at noon and 1 tablet in the evening. Diclofenac 2021- Yes [id number] Apply to Univers Sodium 1 % 2-21 area(s) 3 ity of gel 00:00: (three) [place] 00 times Medical daily. Branch gabapentin 2021- Yes [id number] 600mg Take 1 [facility] 600 mg 2-21 tablet by ity of tablet 00:00: mouth in [place] 00 the Medical morning Branch and 1 tablet at noon and 1 tablet in the evening. Diclofenac 2021- Yes [id number] Apply to Univers Sodium 1 % 2-21 area(s) 3 ity of gel 00:00: (three) [place] 00 times Medical daily. Branch gabapentin 2021- Yes [id number] 600mg Take 1 [facility] 600 mg 2-21 tablet by ity of tablet 00:00: mouth in [place] 00 the Medical morning Branch and 1 tablet at noon and 1 tablet in the evening. Diclofenac 2021- Yes [id number] Apply to Univers Sodium 1 % 2-21 area(s) 3 ity of gel 00:00: (three) [place] 00 times Medical daily. Branch gabapentin 2021- Yes [id number] 600mg Take 1 [facility] 600 mg 2-21 tablet by ity of tablet 00:00: mouth in [place] 00 the Medical morning Branch and 1 tablet at noon and 1 tablet in the evening. Diclofenac 2021- Yes [id number] Apply to Univers Sodium 1 % 2-21 area(s) 3 ity of gel 00:00: (three) [place] 00 times Medical daily. Branch gabapentin 2021- Yes [id number] 600mg Take 1 [facility] 600 mg 2-21 tablet by ity of tablet 00:00: mouth in [place] 00 the Medical morning Branch and 1 tablet at noon and 1 tablet in the evening. Diclofenac 2021-1 Yes [id number] Apply to Univers Sodium 1 % 2-21 area(s) 3 ity of gel 00:00: (three) [place] 00 times Medical daily. Branch gabapentin 2021- Yes [id number] 600mg Take 1 [facility] 600 mg 2-21 tablet by ity of tablet 00:00: mouth in [place] 00 the Medical morning Branch and 1 tablet at noon and 1 tablet in the evening. Diclofenac 2021-11 Yes [id number] Apply to Univers Sodium 1 % 2-21 area(s) 3 ity of gel 00:00: (three) [place] 00 times Medical daily. Branch diclofenac 2021-11- No APPLY Unive rs sodium 2-19 02-03 TOPICALLY ity of (Voltaren) 00:00: 00:00 TO THE [place] 1 % gel 00 :00 AFFECTED MD AREA THREE [place] TIMES n DAILY Cancer [facility] gabapentin 2021-11- No TAKE 1 Univ ers (NEURONTIN) 2-12-15 TABLET BY it y of 600 mg 00:00: 00:00 MOUTH IN [place] tablet 00 :00 THE MD MORNING [place] AND AT n NOON AND Cancer IN THE Center EVENING HYDROcodone 2021-11- No TAKE 1 Uni vers -acetaminop -12-15 TABLET BY it y of hen (NORCO) 00:00: 00:00 MOUTH [place] 7.5 mg-325 00 :00 EVERY 6 MD mg per HOURS [place] tablet NEEDED FOR n PAIN OR Cancer CHRONIC Center PAIN HYDROcodone 2021-11- No 2745 1{tbl} Take 1 U nivers -acetaminop -21 11-18 tablet by it y of hen 7.5-325 00:00: 00:00 mouth [place] mg per 00 :00 every 6 Medical tablet (six) Branch hours as needed for Pain. Indication s: chronic pain ALPRAZolam 2021-11 Yes every 8 Univ ers (XANAX) 2 2-20 (eight) ity of mg tablet 00:00: hours as [place] 00 needed for MD anxiety. Liane [facility] albuterol 2021-11 Yes every 6 Unive rs (VENTOLIN 2-19 (six) ity of HFA,PROAIR 00:00: hours as [place] as HFA) 90 00 needed. mcg/puff [place] inhaler n [facility] spironolact 2021-11- No TAKE 1 Uni vers one -20 12- TABLET BY ity of (ALDACTONE) 00:00: 00:00 MOUTH [place] 25 mg 00 :00 EVERY DAY MD tablet [facility] zolpidem 2021-11 Yes TAKE 1 Univers (AMBIEN) 10 2-17 TABLET BY ity of mg tablet 00:00: MOUTH [place] 00 BEDTIME MD NEEDED FOR [facility] ondansetron 2021-11 Yes DISSOLVE 1 Univers 4 [...] 8 Medica l HOURS Branch NEEDED ondansetron 2- Yes DISSOLVE 1 Univers 4 mg 2-14 TABLET ON ity of disintegrat 00:00: THE TONGUE [place] ing tablet 00 EVERY 8 Medica l HOURS Branch NEEDED ondansetron 2-1 Yes DISSOLVE 1 Univers 4 mg 2-14 [...] EVERY 8 Medica l HOURS Branch NEEDED amLODIPine 2021-11 Yes TAKE 1 Unive rs (NORVASC) 5 2-13 TABLET BY ity of mg tablet 00:00: MOUTH [place] 00 EVERY DAY [facility] pantoprazol 2021-11 Yes TAKE 1 Univ ers e 2-13 TABLET BY ity of (PROTONIX) 00:00: MOUTH [place] 40 mg EC 00 DAILY MD tablet [facility] dicyclomine 2021-11 No TAKE 1 Uni vers (BENTYL) 10 2-12 03-20 CAPSULE BY i ty of mg capsule 00:00: 00:00 MOUTH [place] 00 :00 EVERY 8 MD HOURS [facility] BD DEVORAH 2021-11 Yes 10mg Take 10 mg Univers GEN PEN 2-05 by mouth. ity of NEEDLE 32 00:00: [place] gauge x 00 Medical " Ndle Branch BD DEVORAH 2021-11 Yes 10mg Take 10 mg [facility] GEN PEN 2-05 by mouth. ity of NEEDLE 32 00:00: [place] gauge x 00 Medical 5/" Ndle Branch BD DEVORAH 2021-11 Yes 10mg Take 10 mg [facility] GEN PEN 2-05 by mouth. ity of NEEDLE 32 00:00: [place] gauge x 00 Medical 5/32" Ndle Branch BD DEVORAH 2021-11 Yes 10mg Take 10 mg [facility] GEN PEN 2-05 by mouth. ity of NEEDLE 32 00:00: [place] gauge x 00 Medical /32" Ndle Branch BD DEVORAH 2021-11 Yes 10mg Take 10 mg [facility] GEN PEN 2-05 by mouth. ity of NEEDLE 32 00:00: [place] gauge x 00 Medical /32" Ndle Branch BD DEVORAH 2021-11 Yes 10mg Take 10 mg [facility] GEN PEN 2-05 by mouth. ity of NEEDLE 32 00:00: [place] gauge x 00 Medical /" Ndle Branch BD DEVORAH 2ND 2022-1 Yes 10mg Take 10 mg [facility] GEN PEN 2-05 by mouth. ity of NEEDLE 32 00:00: [place] gauge x 00 [facility] " Ndle Branch BD DEVORAH 2021-11 Yes 10mg Take 10 mg Univers GEN PEN 2-05 by mouth. ity of NEEDLE 32 00:00: [place] gauge x 00 [facility]" Ndle Branch BD DEVORAH 2021-11 Yes 10mg Take 10 mg Univers GEN PEN 2-05 by mouth. ity of NEEDLE 32 00:00: [place] gauge x 00 [facility] " Ndle Branch BD DEVORAH 2021-11 Yes 10mg Take 10 mg [facility] GEN PEN 2-05 by mouth. ity of NEEDLE 32 00:00: [place] gauge x 00 Medical [facility]" Ndle Branch BD DEVORAH 2021-11 Yes 10mg Take 10 mg [facility] GEN PEN 2-05 by mouth. ity of NEEDLE 32 00:00: [place] gauge x 00 [facility] " Ndle Branch BD DEVORAH 2021-11 Yes 10mg Take 10 mg [facility] GEN PEN 2-05 by mouth. ity of NEEDLE 32 00:00: [place] gauge x 00 [facility] " Ndle Branch BD Devorah 2021-11- No USE Uni vers Gen Pen 2-05 - DIRECTED. ity of Needle 32 00:00: 00:00 [place] gauge x 00 :[address] [place] [address] LISINOPRIL 2021-11 Yes [id number] TAKE 1/2 Univers 40 mg 2-02 TABLET BY ity of tablet 00:00: MOUTH [place] 00 TWICE Medical DAILY Branch LISINOPRIL 2021-11 Yes [id number] TAKE 1/2 [facility] 40 mg 2-02 TABLET BY ity of tablet 00:00: MOUTH [place] 00 TWICE Medical DAILY Branch LISINOPRIL 2021-11 Yes [id number] TAKE 1/2 [facility] 40 mg 2-02 TABLET BY ity of tablet 00:00: MOUTH [place] 00 TWICE Medical DAILY Branch LISINOPRIL 2021-11 Yes [id number] TAKE 1/2 [facility] 40 mg 2-02 TABLET BY ity of tablet 00:00: MOUTH [place] 00 TWICE Medical DAILY Branch LISINOPRIL 2021-11 Yes [id number] TAKE 1/2 [facility] 40 mg 2-02 TABLET BY ity of tablet 00:00: MOUTH [place] 00 TWICE Medical DAILY Branch LISINOPRIL 2021-11- No [id number] TAKE 1/2 Univers 40 mg 12-03 TABLET BY ity of tablet 00:00: 00:00 MOUTH [place] 00 :00 TWICE Medical DAILY Branch hydrALAZINE 2021-11- No TAKE 1 Uni vers (APRESOLINE 12-02 TABLET BY it y of ) 100 mg 00:00: 00:00 MOUTH [place] tablet 00 :00 THREE MD TIMES Liane GAMBINO [facility] Victoza 2021-11- No ADMINISTER Uni vers 2-Patrick 0.6 12-02 1.8 MG ity of mg/0.1 mL 00:00: 00:00 UNDER THE [place] (18 mg/3 00 :00 SKIN EVERY MD mL) pnij DAY Andersclint injection [facility] lisinopril 2021-11- No TAKE 1/2 Un ally (PRINIVIL,Z 12-02 TABLET BY it y of ESTRIL) 40 00:00: 00:00 MOUTH [place] mg tablet 00 :00 [facility] USE TWICE Univ ers syringe-nee 12-02 DAILY WITH i ty of dle U-100 1 00:00: 00:00 MEALS. Frankie as mL 31 gauge 00 :00 x 03/16 adrienne [facility] allopurinol 2021-11 No 100mg Take 100 Univers [...] Indication s: chronic pain metFORMIN 2021-11 Yes [id number] 1000mg Take 1 Univers 1,000 mg 1-21 tablet by ity of tablet 00:00: mouth in [place] 00 the Medical morning Branch and 1 tablet in the evening. Take with meals. HYDROcodone 2021-11 Yes [id number] 1{tbl} Take 1 Un ally -acetaminop 1-21 tablet by ity of hen 7.5-325 00:00: mouth [place] mg per 00 every 6 Medical tablet (six) Branch hours as needed for Pain. Indication s: chronic pain metFORMIN 2021-11 Yes [id number] 1000mg Take 1 Univers 1,000 mg 1-21 tablet by ity of tablet 00:00: mouth in [place] [address] the Medical morning Branch and 1 tablet in the evening. Take with meals. HYDROcodone 2021-11 Yes [id number] 1{tbl} Take 1 Un ally -acetaminop 1-21 tablet by ity of hen 7.5-325 00:00: mouth [place] mg per 00 every 6 Medical tablet (six) Branch hours as needed for Pain. Indication s: chronic pain metFORMIN 2021-11 Yes [id number] 1000mg Take 1 Univers 1,000 mg 1-21 tablet by ity of tablet 00:00: mouth in [place] 00 the Medical morning Branch and 1 tablet in the evening. Take with meals. HYDROcodone 2021-11 Yes [id number] 1{tbl} Take 1 Un ally -acetaminop 1-21 tablet by ity of hen 7.5-325 00:00: mouth [place] mg per 00 every 6 Medical tablet (six) Branch hours as needed for Pain. Indication s: chronic pain metFORMIN 2021-11 Yes [id number] 1000mg Take 1 Univers 1,000 mg 1-21 tablet by ity of tablet 00:00: mouth in [place] 00 the Medical morning Branch and 1 tablet in the evening. Take with meals. metFORMIN 2021-11 Yes [id number] 1000mg Take 1 Univers 1,000 mg 1-21 tablet by ity of tablet 00:00: mouth in [address] morning [place] and 1 tablet in the evening. Take with meals. neomycin-po 2021-11 Yes INSTILL 4 U nivers lymyxin-hyd 1-21 DROPS TO ity of rocortisone 00:00: AFFECTED [place] otic 00 EAR FOUR Medical solution TIMES Branch DAILY metFORMIN 2021-11 Yes [id number] 1000mg Take 1 Univers 1,000 mg 1-21 tablet by ity of tablet 00:00: mouth in [address] and 1 tablet in the evening. Take with meals. neomycin-po 2021-11 Yes INSTILL 4 U nivers lymyxin-hyd 1-21 DROPS TO ity of rocortisone 00:00: AFFECTED [place] otic 00 EAR FOUR Medical solution TIMES Branch DAILY metFORMIN 2021-11 Yes [id number] 1000mg Take 1 Univers 1,000 mg 1-21 tablet by ity of tablet 00:00: mouth in [address] and 1 tablet in the evening. Take with meals. neomycin-po 2021-11 Yes INSTILL 4 U nivers lymyxin-hyd 1-21 DROPS TO ity of rocortisone 00:00: AFFECTED [place] otic 00 EAR FOUR Medical solution TIMES Branch DAILY metFORMIN 2021-11 Yes [id number] 1000mg Take 1 Univers 1,000 mg 1-21 tablet by ity of tablet 00:00: mouth in [address] and 1 tablet in the evening. Take with meals. neomycin-po 2021-11 Yes INSTILL 4 U nivers lymyxin-hyd 1-21 DROPS TO ity of rocortisone 00:00: AFFECTED [place] otic 00 EAR FOUR Medical solution TIMES Branch DAILY metFORMIN 2021-11 Yes [id number] 1000mg Take 1 Univers 1,000 mg 1-21 tablet by ity of tablet 00:00: mouth in [address] and 1 tablet in the evening. Take with meals. neomycin-po 2021-11 Yes INSTILL 4 U nivers lymyxin-hyd 1-21 DROPS TO ity of rocortisone 00:00: AFFECTED [place] otic 00 EAR FOUR Medical solution TIMES Branch DAILY metFORMIN 2021-11 Yes [id number] 1000mg Take 1 Univers 1,000 mg 1-21 tablet by ity of tablet 00:00: mouth in [address] morning [place] and 1 tablet in the evening. Take with meals. neomycin-po 2021-11 Yes INSTILL 4 U nivers lymyxin-hyd 1-21 DROPS TO ity of rocortisone 00:00: AFFECTED [place] otic 00 EAR FOUR Medical solution TIMES Branch DAILY metFORMIN 2021-11 Yes [id number] 1000mg Take 1 Univers 1,000 mg 1-21 tablet by ity of tablet 00:00: mouth in [address] morning [place] and 1 tablet in the evening. Take with meals. neomycin-po 2021-11 Yes INSTILL 4 U nivers lymyxin-hyd 1-21 DROPS TO ity of rocortisone 00:00: AFFECTED [place] otic 00 EAR FOUR Medical solution TIMES Branch DAILY metFORMIN 2021-11 Yes [id number] 1000mg Take 1 Univers 1,000 mg 1-21 tablet by ity of tablet 00:00: mouth in [address] morning [place] and 1 tablet in the evening. Take with meals. neomycin-po 2021-11 Yes INSTILL 4 U nivers lymyxin-hyd 1-21 DROPS TO ity of rocortisone 00:00: [place]FFECTED [place] [facility] 00 EAR FOUR Medical solution TIMES Branch DAILY metFORMIN 2021-11 Yes [id number] 1000mg Take 1 [facility] 1,000 mg 1-21 tablet by ity of tablet 00:00: mouth in [address] and 1 tablet in the evening. Take with meals. neomycin-po 2021-11 Yes INSTILL 4 U nivers lymyxin-hyd 1-21 DROPS TO ity of rocortisone 00:00: [place] [facility] 00 EAR FOUR Medical solution TIMES Branch DAILY metFORMIN 2021-11 Yes [id number] 1000mg Take 1 [facility] 1,000 mg 1-21 tablet by ity of tablet 00:00: mouth in [address] morning [place] and 1 tablet in the evening. Take with meals. neomycin-po 2021-11 Yes INSTILL 4 U nivers lymyxin-hyd 1-21 DROPS TO ity of rocortisone 00:00: [place] [facility] 00 EAR FOUR Medical solution TIMES Branch DAILY metFORMIN 2021-11 Yes [id number] 1000mg Take 1 [facility] 1,000 mg 1-21 tablet by ity of tablet 00:00: mouth in [place] 00 the Medical morning Branch and 1 tablet in the evening. Take with meals. neomycin-po 2021-11 Yes INSTILL 4 U nivers lymyxin-hyd 1-21 DROPS TO ity of rocortisone 00:00: [place]ED [place] [facility] 00 EAR FOUR Medical solution TIMES Branch DAILY metFORMIN 2021-11 Yes [id number] 1000mg Take 1 [facility] 1,000 mg 1-21 tablet by ity of tablet 00:00: mouth in [place] 00 the Medical morning Branch and 1 tablet in the evening. Take with meals. neomycin-po 2021-11 Yes INSTILL 4 U nivers lymyxin-hyd 1-21 DROPS TO ity of rocortisone 00:00: [place] [facility] 00 EAR FOUR Medical solution TIMES Branch DAILY colchicine 2021-11- No TAKE 1 [facility] ers (COLCRYS) 11-21 03-20 TABLET BY ity of 0.6 mg 00:00: 00:00 MOUTH [place] tablet 00 :00 DAILY MD [facility] metFORMIN 2021-11- No TAKE 1 Unive rs (GLUCOPHAGE 11-21 02-14 TABLET BY it y of ) 1000 mg 00:00: 00:00 MOUTH IN [place] as tablet 00 :00 THE MORNING [place] AND IN THE n EVENING [facility] HYDROcodone 2021-11- No [id number] 1{tbl} Take 1 [...] needed for Pain. Indication s: chronic pain Trelegy 2021-11 Yes INHALE 1 Univer s Ellipta 1-18 PUFF BY ity of 100-62.5-25 00:00: MOUTH [place] mcg dsdv 00 EVERY DAY MD [facility] nitroglycer 2021-11- No PLACE 1 Un ally in 18 03-14 TABLET ity of (NITROSTAT) 00:00: 00:00 UNDER THE [place] 0.4 mg SL 00 :00 TONGUE MD tablet EVERY 5 [place] MINUTES n FOR CHEST Cancer PAIN. [place] GABAPENTIN 2021-11 Yes [id number] TAKE 1 [facility] 600 mg 1-17 TABLET BY ity of tablet 00:00: MOUTH [place] [address] THREE Medical TIMES Branch DAILY GABAPENTIN 2021-11 Yes [id number] TAKE 1 [facility] 600 mg 1-17 TABLET BY ity of tablet 00:00: [place] [address] THREE Medical TIMES Branch DAILY GABAPENTIN 2021-11 Yes [id number] TAKE 1 [facility] 600 mg 1-17 TABLET BY ity of tablet 00:00: [place] [address] THREE Medical TIMES Branch DAILY GABAPENTIN 2021-11 Yes [id number] TAKE 1 [facility] 600 mg 1-17 TABLET BY ity of tablet 00:00: [place] [address] THREE Medical TIMES Branch DAILY GABAPENTIN 2021-11 Yes [id number] TAKE 1 [facility] 600 mg 1-17 TABLET BY ity of tablet 00:00: [place] [address] THREE Medical TIMES Branch DAILY GABAPENTIN 2021-11 Yes [id number] TAKE 1 [facility] 600 mg 1-17 TABLET BY ity of tablet 00:00: [place] [address] THREE Medical TIMES Branch DAILY GABAPENTIN 2021-11- No [id number] TAKE 1 [facility] 600 mg 1-17 12-21 TABLET BY ity of tablet 00:00: 00:00 [facility] 00 :00 THREE Medical TIMES Branch DAILY GABAPENTIN 2021-2021- No [id number] TAKE 1 [facility] 600 mg 1-17 12-21 TABLET BY ity of tablet 00:00: 00:00 [facility] 00 :00 THREE Medical TIMES Branch DAILY ALPRAZolam 2021-11 Yes 2mg Take 2 mg Un ally 2 mg tablet 1-12 by mouth 3 it y of 00:00: (three) [place] 00 times Medical daily as Branch needed. atorvastati 2021-11 Yes 20mg Take 20 mg [facility] n 20 mg 1-12 by mouth ity of tablet 00:00: in the [place] 00 morning. Medical Branch ALPRAZolam 2021-11 Yes 2mg Take 2 mg Un ally 2 mg tablet 1-12 by mouth 3 it y of 00:00: (three) [place] 00 times Medical daily as Branch needed. atorvastati 2021-11 Yes 20mg Take 20 mg [facility] n 20 mg 1-12 by mouth ity of tablet 00:00: in the [place] 00 morning. Medical Branch ALPRAZolam 2021-11 Yes 2mg Take 2 mg Un ally 2 mg tablet 1-12 by mouth 3 it y of 00:00: (three) [place] 00 times Medical daily as Branch needed. atorvastati 2021-11 Yes 20mg Take 20 mg [facility] n 20 mg 1-12 by mouth ity of tablet 00:00: in the [place] 00 morning. Medical Branch ALPRAZolam 2021-11 Yes 2mg Take 2 mg Un ally 2 mg tablet 1-12 by mouth 3 it y of 00:00: (three) [place] 00 times Medical daily as Branch needed. atorvastati 2021-11 Yes 20mg Take 20 mg [facility] n 20 mg 1-12 by mouth ity of tablet 00:00: in the [place] 00 morning. Medical Branch ALPRAZolam 2021-11 Yes 2mg Take 2 mg Un ally 2 mg tablet 1-12 by mouth 3 it y of 00:00: (three) [place] 00 times Medical daily as Branch needed. atorvastati 2021-11 Yes 20mg Take 20 mg [facility] n 20 mg 1-12 by mouth ity of tablet 00:00: in the [place] 00 morning. Medical Branch ALPRAZolam 2021-11 Yes 2mg Take 2 mg Un ally 2 mg tablet 1-12 by mouth 3 it y of 00:00: (three) [place] 00 times Medical daily as Branch needed. atorvastati 2021-11 Yes 20mg Take 20 mg [facility] n 20 mg 1-12 by mouth ity of tablet 00:00: in the [place] 00 morning. Medical Branch ALPRAZolam 2021-11 Yes 2mg Take 2 mg Un ally 2 mg tablet 1-12 by mouth 3 it y of 00:00: (three) [place] 00 times Medical daily as Branch needed. atorvastati 2021- Yes 20mg Take 20 mg [facility] n 20 mg 1-12 by mouth ity of tablet 00:00: in the [place] 00 morning. Medical Branch ALPRAZolam 2021-11 Yes 2mg Take 2 mg Un ally 2 mg tablet 1-12 by mouth 3 it y of 00:00: (three) [place] 00 times Medical daily as Branch needed. atorvastati 2021-11 Yes 20mg Take 20 mg [facility] n 20 mg 1-12 by mouth ity of tablet 00:00: in the [place] 00 morning. Medical Branch ALPRAZolam 2021-11 Yes 2mg Take 2 mg Un ally 2 mg tablet 1-12 by mouth 3 it y of 00:00: (three) [place] 00 times Medical daily as Branch needed. atorvastati 2021-11 Yes 20mg Take 20 mg [facility] n 20 mg 1-12 by mouth ity of tablet 00:00: in the [place] 00 morning. Medical Branch ALPRAZolam 2021-11 Yes 2mg Take 2 mg Un ally 2 mg tablet 1-12 by mouth 3 it y of 00:00: (three) [place] 00 times Medical daily as Branch needed. atorvastati 2021-11 Yes 20mg Take 20 mg [facility] n 20 mg 1-12 by mouth ity of tablet 00:00: in the [place] 00 morning. Medical Branch ALPRAZolam 2021-11 Yes 2mg Take 2 mg Un ally 2 mg tablet 1-12 by mouth 3 it y of 00:00: (three) [place] 00 times Medical daily as Branch needed. atorvastati 2021-11 Yes 20mg Take 20 mg [facility] n 20 mg 1-12 by mouth ity of tablet 00:00: in the [place] 00 morning. Medical Branch ALPRAZolam 2021-11 Yes 2mg Take 2 mg Un ally 2 mg tablet 1-12 by mouth 3 it y of 00:00: (three) [place] 00 times Medical daily as Branch needed. atorvastati 2021-11 Yes 20mg Take 20 mg [facility] n 20 mg 1-12 by mouth ity of tablet 00:00: in the [place] 00 morning. Medical Branch ALPRAZolam 2021-11 Yes 2mg Take 2 mg Un ally 2 mg tablet 1-12 by mouth 3 it y of 00:00: (three) [place] 00 times Medical daily as Branch needed. atorvastati 2021- Yes 20mg Take 20 mg [facility] n 20 mg 1-12 by mouth ity of tablet 00:00: in the [place] 00 morning. Medical Branch ALPRAZolam 2021-11 Yes 2mg Take 2 mg Un ally 2 mg tablet 1-12 by mouth 3 it y of 00:00: (three) [place] 00 times Medical daily as Branch needed. atorvastati 2021-11 Yes 20mg Take 20 mg [facility] n 20 mg 1-12 by mouth ity of tablet 00:00: in the [place] 00 morning. Medical Branch ALPRAZolam 2021-11 Yes 2mg Take 2 mg Un ally 2 mg tablet 1-12 by mouth 3 it y of 00:00: (three) [place] 00 times Medical daily as Branch needed. atorvastati 2021-11 Yes 20mg Take 20 mg Univers n 20 mg 1-12 by mouth ity of tablet 00:00: in the [place] 00 morning. Medical Branch ALPRAZolam 2021-11 Yes 2mg Take 2 mg Un ally 2 mg tablet 1-12 by mouth 3 it y of 00:00: (three) [place] 00 times Medical daily as Branch needed. atorvastati 2021-11 Yes 20mg Take 20 mg [facility] n 20 mg 1-12 by mouth ity of tablet 00:00: in the [place] 00 morning. Medical Branch atorvastati 2021-11 Yes TAKE 1 Univ ers n (LIPITOR) 1-12 TABLET BY ity of 20 mg 00:00: MOUTH [place] tablet 00 EVERY DAY MD [facility] hydrocortis 2021-11 Yes APPLY Unive rs one 1 % 1-10 TWICE ity of cream 00:00: DAILY IN [place] 00 AND AROUND Medical THE RECTUM Branch AFTER SITZ BATH hydrocortis 2021-11 Yes APPLY Unive rs one 1 % 1-10 TWICE ity of cream 00:00: DAILY IN [place] 00 AND AROUND Medical THE RECTUM Branch AFTER SITZ BATH hydrocortis 2021-11 Yes APPLY Unive rs one 1 % 1-10 TWICE ity of cream 00:00: DAILY IN [place] 00 AND AROUND Medical THE RECTUM Branch AFTER SITZ BATH hydrocortis 2021-11 Yes APPLY Unive rs one 1 % 1-10 TWICE ity of cream 00:00: DAILY IN [place] 00 AND AROUND Medical THE RECTUM Branch AFTER SITZ BATH hydrocortis 2021-11 Yes APPLY Unive rs one 1 % 1-10 TWICE ity of cream 00:00: DAILY IN [place] 00 AND AROUND Medical THE RECTUM Branch AFTER SITZ BATH hydrocortis 2021-11 Yes APPLY Unive rs one 1 % 1-10 TWICE ity of cream 00:00: DAILY IN [place] 00 AND AROUND Medical THE RECTUM Branch AFTER SITZ BATH hydrocortis 2021-11 Yes APPLY Unive rs one 1 % 1-10 TWICE ity of cream 00:00: DAILY IN [place] 00 AND AROUND Medical THE RECTUM Branch AFTER SITZ BATH hydrocortis 2021-11 Yes APPLY Unive rs one 1 % 1-10 TWICE ity of cream 00:00: DAILY IN [place] 00 AND AROUND Medical THE RECTUM Branch AFTER SITZ BATH hydrocortis 2021-11 Yes APPLY Unive rs one 1 % 1-10 TWICE ity of cream 00:00: DAILY IN [place] 00 AND AROUND Medical THE RECTUM Branch AFTER SITZ BATH hydrocortis 2021-11 Yes APPLY Unive rs one 1 % 1-10 TWICE ity of cream 00:00: DAILY IN [place] 00 AND AROUND Medical THE RECTUM Branch AFTER SITZ BATH hydrocortis 2021-11 Yes APPLY Unive rs one 1 % 1-10 TWICE ity of cream 00:00: DAILY IN [place] 00 AND AROUND Medical THE RECTUM Branch AFTER SITZ BATH hydrocortis 2021-11 Yes APPLY Unive rs one 1 % 1-10 TWICE ity of cream 00:00: DAILY IN [place] 00 AND AROUND Medical THE RECTUM Branch AFTER SITZ BATH hydrocortis 2021-11 Yes APPLY Unive rs one 1 % 1-10 TWICE ity of cream 00:00: DAILY IN [place] 00 AND AROUND Medical THE RECTUM Branch AFTER SITZ BATH hydrocortis 2021-11 Yes APPLY Unive rs one 1 % 1-10 TWICE ity of cream 00:00: DAILY IN [place] 00 AND AROUND Medical THE RECTUM Branch AFTER SITZ BATH hydrocortis 2021-11 Yes APPLY Unive rs one 1 % 1-10 TWICE ity of cream 00:00: DAILY IN [place] 00 AND AROUND Medical THE RECTUM Branch AFTER SITZ BATH hydrocortis 2021-11 Yes APPLY Unive rs one 1 % 1-10 TWICE ity of cream 00:00: DAILY IN [place] 00 AND AROUND Medical THE RECTUM Branch AFTER SITZ BATH hydrocortis 2021-11- No APPLY Univ ers one 1 % 1-10 03-14 TWICE ity of crpe 00:00: 00:00 DAILY IN [place] 00 :00 AND AROUND MD THE RECTUM [place] [facility] benzonatate 2021-11 Yes TAKE 1 Univ ers 100 mg 1-05 CAPSULE BY ity of capsule 00:00: MOUTH [place] 00 THREE Medical TIMES Branch DAILY NEEDED [...] by ity of tablet 00:00: mouth in [place] the Medical morning Branch and 0.1 mg at noon and 0.1 mg in the evening. benzonatate 2021-11 Yes TAKE 1 Univ ers 100 mg 1-05 CAPSULE BY ity of capsule 00:00: MOUTH [place] THREE Medical TIMES Branch DAILY NEEDED FOR [...] by ity of tablet 00:00: mouth in [place] the Medical morning Branch and 0.1 mg at noon and 0.1 mg in the evening. benzonatate 2021-11 Yes TAKE 1 Univ ers 100 mg 1-05 CAPSULE BY ity of capsule 00:00: MOUTH [place] 00 THREE Medical TIMES Branch DAILY NEEDED [...] by ity of tablet 00:00: mouth in [place] 00 the Medical morning Branch and 0.1 mg at noon and 0.1 mg in the evening. benzonatate 2021-11 Yes TAKE 1 Univ ers 100 mg 1-05 CAPSULE BY ity of capsule 00:00: MOUTH [place] 00 THREE Medical TIMES Branch DAILY NEEDED [...] by ity of tablet 00:00: mouth in [place] 00 the Medical morning Branch and 0.1 mg at noon and 0.1 mg in the evening. benzonatate 2021-11 Yes TAKE 1 Univ ers 100 mg 1-05 CAPSULE BY ity of capsule 00:00: MOUTH [place] 00 THREE Medical TIMES Branch DAILY NEEDED [...] by ity of tablet 00:00: mouth in [place] 00 the Medical morning Branch and 0.1 mg at noon and 0.1 mg in the evening. benzonatate 2021-11 Yes TAKE 1 Univ ers 100 mg 1-05 CAPSULE BY ity of capsule 00:00: MOUTH [place] 00 THREE Medical TIMES Branch DAILY NEEDED [...] by ity of tablet 00:00: mouth in [place] 00 the Medical morning Branch and 0.1 mg at noon and 0.1 mg in the evening. benzonatate 2021-11 Yes TAKE 1 Univ ers 100 mg 1-05 CAPSULE BY ity of capsule 00:00: MOUTH [place] 00 THREE Medical TIMES Branch DAILY NEEDED [...] by ity of tablet 00:00: mouth in [place] 00 the Medical morning Branch and 0.1 mg at noon and 0.1 mg in the evening. benzonatate 2021-11 Yes TAKE 1 Univ ers 100 mg 1-05 CAPSULE BY ity of capsule 00:00: MOUTH [place] THREE Medical TIMES Branch DAILY NEEDED FOR [...] by ity of tablet 00:00: mouth in [place] the Medical morning Branch and 0.1 mg at noon and 0.1 mg in the evening. benzonatate 2021-11 Yes TAKE 1 Univ ers 100 mg 1-05 CAPSULE BY ity of capsule 00:00: MOUTH [place] [address] THREE Medical TIMES Branch DAILY NEEDED FOR [...] by ity of tablet 00:00: mouth in [place] 00 the Medical morning Branch and 0.1 mg at noon and 0.1 mg in the evening. benzonatate 2021-11 Yes TAKE 1 Univ ers 100 mg 1-05 CAPSULE BY ity of capsule 00:00: MOUTH 00 THREE Medical TIMES Branch DAILY NEEDED [...] by ity of tablet 00:00: mouth in 00 the Medical morning Branch and 0.1 mg at noon and 0.1 mg in the evening. benzonatate 2021-11 Yes TAKE 1 Univ ers 100 mg 1-05 CAPSULE BY ity of capsule 00:00: MOUTH [place] THREE Medical TIMES Branch DAILY NEEDED FOR [...] by ity of tablet 00:00: mouth in [place] 00 the Medical morning Branch and 0.1 mg at noon and 0.1 mg in the evening. benzonatate 2021-11 Yes TAKE 1 Univ ers 100 mg 1-05 CAPSULE BY ity of capsule 00:00: MOUTH [place] THREE Medical TIMES Branch DAILY NEEDED FOR [...] 1-05 (1) ity of capsule 00:00: CAPSULE(S) a s 00 BY MOUTH Medical TWICE A Branch DAY. cloNIDine 2021-11 Yes .1mg Take 0.1 Univ ers 0.1 mg 1-05 mg by ity of tablet 00:00: mouth in [place] 00 the Medical morning Branch and 0.1 mg at noon and 0.1 mg in the evening. benzonatate 2021-11 Yes TAKE 1 Univ ers 100 mg 1-05 CAPSULE BY ity of capsule 00:00: MOUTH [place] THREE Medical TIMES Branch DAILY NEEDED FOR [...] evening. oseltamivir 2021-11 Yes TAKE ONE Un alyl 75 mg 1-05 (1) ity of capsule [...] by ity of tablet 00:00: mouth in [place] the Medical morning Branch and 0.1 mg at noon and 0.1 mg in the evening. benzonatate 2021-11 Yes TAKE 1 Univ ers 100 mg 1-05 CAPSULE BY ity of capsule 00:00: MOUTH THREE Medical TIMES Branch DAILY NEEDED FOR [...] by ity of tablet 00:00: mouth in [place] 00 the Medical morning Branch and 0.1 mg at noon and 0.1 mg in the evening. LISINOPRIL 2021-11 Yes [id number] TAKE 1/2 Univers 40 mg 1-04 TABLET BY ity of tablet 00:00: MOUTH [place] 00 TWICE Medical DAILY Branch LISINOPRIL 2021-11 Yes [id number] TAKE 1/2 [facility] 40 mg 1-04 TABLET BY ity of tablet 00:00: MOUTH [place] 00 TWICE Medical DAILY Branch LISINOPRIL 2021-11 Yes [id number] TAKE 1/2 Univers 40 mg 1-04 TABLET BY ity of tablet 00:00: MOUTH [place] 00 TWICE Medical DAILY Branch LISINOPRIL 2021-11 Yes [id number] TAKE 1/2 [facility] 40 mg 1-04 TABLET BY ity of tablet 00:00: MOUTH [place] 00 TWICE Medical DAILY Branch LISINOPRIL 2021-11 Yes [id number] TAKE 1/2 [facility] 40 mg 1-04 TABLET BY ity of tablet 00:00: MOUTH [place] 00 TWICE Medical DAILY Branch LISINOPRIL 2021-11 Yes [id number] TAKE 1/2 [facility] 40 mg 1-04 TABLET BY ity of tablet 00:00: MOUTH [place] 00 TWICE Medical DAILY Branch LISINOPRIL 2021-11 Yes [id number] TAKE 1/2 [facility] 40 mg 1-04 TABLET BY ity of tablet 00:00: MOUTH [place] 00 TWICE Medical DAILY Branch LISINOPRIL 2021-11- No [id number] TAKE 1/2 [facility] 40 mg 1-04 - TABLET BY ity of tablet 00:00: 00:00 MOUTH [place] 00 :00 TWICE Medical DAILY Branch hydrALAZINE 2021-11 Yes [id number] TAKE 1 [facility] 100 mg 1-03 TABLET BY ity of tablet 00:00: MOUTH [place] 00 THREE Medical TIMES Branch DAILY lisinopriL 2021-11 Yes [id number] TAKE 1/2 [facility] 40 mg 1-03 TABLET BY ity of tablet 00:00: MOUTH [place] 00 TWICE Medical DAILY Branch metoprolol 2021-11 Yes TAKE 1 Unive rs tartrate 1-03 TABLET BY ity of 100 mg 00:00: MOUTH [place] tablet 00 TWICE Medical DAILY Branch hydrALAZINE 2021-11 Yes [id number] TAKE 1 [facility] 100 mg 1-03 TABLET BY ity of tablet 00:00: MOUTH [place] 00 THREE Medical TIMES Branch DAILY metoprolol 2021-11 Yes TAKE 1 Unive rs tartrate 1-03 TABLET BY ity of 100 mg 00:00: MOUTH [place] tablet 00 TWICE Medical DAILY Branch hydrALAZINE 2021-11 Yes [id number] TAKE 1 [facility] 100 mg 1-03 TABLET BY ity of tablet 00:00: MOUTH [place] 00 THREE Medical TIMES Branch DAILY metoprolol 2021-11 Yes TAKE 1 Unive rs tartrate 1-03 TABLET BY ity of 100 mg 00:00: MOUTH [place] tablet 00 TWICE Medical DAILY Branch hydrALAZINE 2021-11 Yes [id number] TAKE 1 [facility] 100 mg 1-03 TABLET BY ity of tablet 00:00: MOUTH [place] 00 THREE Medical TIMES Branch DAILY metoprolol 2021-11 Yes TAKE 1 Unive rs tartrate 1-03 TABLET BY ity of 100 mg 00:00: MOUTH [place] tablet 00 TWICE Medical DAILY Branch hydrALAZINE 2021-11 Yes [id number] TAKE 1 [facility] 100 mg 1-03 TABLET BY ity of tablet 00:00: MOUTH [place] 00 THREE Medical TIMES Branch DAILY metoprolol 2021-11 Yes TAKE 1 Unive rs tartrate 1-03 TABLET BY ity of 100 mg 00:00: MOUTH [place] tablet 00 TWICE Medical DAILY Branch hydrALAZINE 2021-11 Yes [id number] TAKE 1 [facility] 100 mg 1-03 TABLET BY ity of tablet 00:00: MOUTH [place] 00 THREE Medical TIMES Branch DAILY metoprolol 2021-11 Yes TAKE 1 Unive rs tartrate 1-03 TABLET BY ity of 100 mg 00:00: MOUTH [place] tablet 00 TWICE Medical DAILY Branch hydrALAZINE 2021-11 Yes [id number] TAKE 1 [facility] 100 mg 1-03 TABLET BY ity of tablet 00:00: MOUTH [place] 00 THREE Medical TIMES Branch DAILY metoprolol 2021-11 Yes TAKE 1 Unive rs tartrate 1-03 TABLET BY ity of 100 mg 00:00: MOUTH [place] tablet 00 TWICE Medical DAILY Branch hydrALAZINE 2021-11 Yes [id number] TAKE 1 [facility] 100 mg 1-03 TABLET BY ity of tablet 00:00: MOUTH [place] 00 THREE Medical TIMES Branch DAILY metoprolol 2021-11 Yes TAKE 1 Unive rs tartrate 1-03 TABLET BY ity of 100 mg 00:00: MOUTH [place] tablet 00 TWICE Medical DAILY Branch hydrALAZINE 2021-11 Yes [id number] TAKE 1 [facility] 100 mg 1-03 TABLET BY ity of tablet 00:00: MOUTH [place] 00 THREE Medical TIMES Branch DAILY metoprolol 2021-11 Yes TAKE 1 Unive rs tartrate 1-03 TABLET BY ity of 100 mg 00:00: MOUTH [place] tablet 00 TWICE Medical DAILY Branch hydrALAZINE 2021-11 Yes [id number] TAKE 1 [facility] 100 mg 1-03 TABLET BY ity of tablet 00:00: MOUTH [place] 00 THREE Medical TIMES Branch DAILY metoprolol 2021-11 Yes TAKE 1 Unive rs tartrate 1-03 TABLET BY ity of 100 mg 00:00: MOUTH [place] tablet 00 TWICE Medical DAILY Branch hydrALAZINE 2021-11 Yes [id number] TAKE 1 [facility] 100 mg 1-03 TABLET BY ity of tablet 00:00: MOUTH [place] 00 THREE Medical TIMES Branch DAILY metoprolol 2021-11 Yes TAKE 1 Unive rs tartrate 1-03 TABLET BY ity of 100 mg 00:00: MOUTH [place] tablet 00 TWICE Medical DAILY Branch hydrALAZINE 2021-11 Yes [id number] TAKE 1 [facility] 100 mg -03 TABLET BY ity of tablet 00:00: MOUTH [place] 00 THREE Medical TIMES Branch DAILY hydrALAZINE 2021-11 Yes [id number] TAKE 1 [facility] 100 mg 03 TABLET BY ity of tablet 00:00: MOUTH [place] 00 THREE Medical TIMES Branch DAILY hydrALAZINE 2021-11- No [id number] TAKE 1 [facility] 100 mg 11-03 TABLET BY ity of tablet 00:00: 00:00 MOUTH [place] 00 :00 THREE Medical TIMES Branch DAILY metoprolol 2021-11- No TAKE 1 Univ ers tartrate 11-03 TABLET BY ity o f 100 mg 00:00: 00:00 MOUTH [place] tablet 00 :00 TWICE Medical DAILY Branch lisinopriL 2021-11- No [id number] TAKE 1/2 Univers 40 mg 11-03 TABLET BY ity of tablet 00:00: 00:00 MOUTH [place] 00 :00 TWICE Medical DAILY Branch allopurinoL 2021-11 Yes 300mg Take 300 U nivers 300 mg 1-01 mg by ity of tablet 00:00: mouth in [place] 00 the Medical morning Branch and 300 mg in the evening. allopurinoL 2021-11 Yes 300mg Take 300 U nivers 300 mg 1-01 mg by ity of tablet 00:00: mouth in [place] 00 the Medical morning Branch and 300 mg in the evening. allopurinoL 2021-11 Yes 300mg Take 300 U nivers 300 mg 1-01 mg by ity of tablet 00:00: mouth in [place] 00 the Medical morning Branch and 300 mg in the evening. allopurinoL 2021-11 Yes 300mg Take 300 U nivers 300 mg 1-01 mg by ity of tablet 00:00: mouth in [place] 00 the Medical morning Branch and 300 mg in the evening. allopurinoL 2021-11 Yes 300mg Take 300 U nivers 300 mg 1-01 mg by ity of tablet 00:00: mouth in [place] 00 the Medical morning Branch and 300 mg in the evening. allopurinoL 2021-11 Yes 300mg Take 300 U nivers 300 mg 1-01 mg by ity of tablet 00:00: mouth in [place] 00 the Medical morning Branch and 300 mg in the evening. allopurinoL 2021- Yes 300mg Take 300 U nivers 300 mg 1-01 mg by ity of tablet 00:00: mouth in [place] 00 the Medical morning Branch and 300 mg in the evening. allopurinoL 2021-11 Yes 300mg Take 300 U nivers 300 mg 1-01 mg by ity of tablet 00:00: mouth in [place] 00 the Medical morning Branch and 300 mg in the evening. allopurinoL 2021-11 Yes 300mg Take 300 U nivers 300 mg 1-01 mg by ity of tablet 00:00: mouth in [place] 00 the Medical morning Branch and 300 mg in the evening. allopurinoL 2021-11 Yes 300mg Take 300 U nivers 300 mg 1-01 mg by ity of tablet 00:00: mouth in [place] 00 the Medical morning Branch and 300 mg in the evening. allopurinoL 2021-11 Yes 300mg Take 300 U nivers 300 mg 1-01 mg by ity of tablet 00:00: mouth in [place] 00 the Medical morning Branch and 300 mg in the evening. allopurinoL 2021-11 Yes 300mg Take 300 U nivers 300 mg 1-01 mg by ity of tablet 00:00: mouth in [place] 00 the Medical morning Branch and 300 mg in the evening. allopurinoL 2021-11 Yes 300mg Take 300 U nivers 300 mg 1-01 mg by ity of tablet 00:00: mouth in [place] 00 the Medical morning Branch and 300 mg in the evening. allopurinoL 2021-11 Yes 300mg Take 300 U nivers 300 mg 1-01 mg by ity of tablet 00:00: mouth in [place] 00 the Medical morning Branch and 300 mg in the evening. allopurinoL 2021-11 Yes 300mg Take 300 U nivers 300 mg 1-01 mg by ity of tablet 00:00: mouth in [place] 00 the Medical morning Branch and 300 mg in the evening. allopurinoL 2021-11 Yes 300mg Take 300 U nivers 300 mg 1-01 mg by ity of tablet 00:00: mouth in [place] [address] the Medical morning Branch and 300 mg in the evening. allopurinol 2021-11- No TAKE 1 Uni vers (ZYLOPRIM) 1 03-20 TABLET BY ity of 300 mg 00:00: 00:00 MOUTH [place] tablet 00 :00 TWICE MD DAILY [facility] triamcinolo 2021-11 Yes APPLY Unive rs ne [...] Medi mari AREA TWICE Branch DAILY triamcinolo 2021-11- No APPLY Univ ers ne 0-28 03-14 TOPICALLY ity of (KENALOG) 00:00: 00:00 TO THE [place] 0.1% cream 00 :00 AFFECTED MD AREA TWICE [place] DAILY [facility] ketorolac 2021-11- No [id number] 30mg Univers (TORADOL) 0-25 - 9105 ity of injection 16:45: 16:45 [place] 30 mg 00 :00 [facility] Branch ketorolac 2021-11- No [id number] 30mg 30 mg, Univers (TORADOL) 0-25 - 91 Intr[facility] ity of injection 16:45: 16:45 [place], ONCE, [place] 30 mg 00 :00 1 dose, On [facility] Branch 08/25/22 at 1145, Routine ketorolac 2021-11- No [id number] 30mg Univers (TORADOL) 0-25 - 91 ity of injection 16:45: 16:45 [place] 30 mg 00 :00 [facility] ketorolac 2021-11- No [id number] 30mg 30 mg, Univers (TORADOL) 0-25 - 9105 Intramuscu ity of injection 16:45: 16:45 [place], ONCE, [place] 30 mg 00 :00 1 dose, On Medical Tue Branch 08/25/22 at 1145, Routine rizatriptan 2021-11 Yes [id number] 5mg Take 1 [facility] 5 mg 0-25 9105 tablet by ity of disintegrat 00:00: mouth [place] tablet 00 needed for Med ical Migraine Branch (take 1 on onset of migraine and can repeat in 2 hrs). May repeat in 2 hours if needed rizatriptan 2021-11 Yes [id number] 5mg Take 1 [facility] 5 mg 0-25 9105 tablet by ity of disintegrat 00:00: mouth [place] tablet 00 needed for Med ical Migraine Branch (take 1 on onset of migraine and can repeat in 2 hrs). May repeat in 2 hours if needed rizatriptan 2021-11 Yes [id number] 5mg Take 1 [facility] 5 mg 0-25 9105 tablet by [facility] disintegrat 00:00: mouth [place] ing tablet 00 needed for Med ical Migraine Branch (take 1 on onset of migraine and can repeat in 2 hrs). May repeat in 2 hours if needed rizatriptan 2021-11 Yes [id number] 5mg Take 1 [facility] 5 mg 0-25 9105 tablet by [facility] disintegrat 00:00: mouth [place] ing tablet 00 needed for [facility] Migraine Branch (take 1 on onset of migraine and can repeat in 2 hrs). May repeat in 2 hours if needed rizatriptan 2021-11 Yes [id number] 5mg Take 1 [facility] 5 mg 0-25 9105 tablet by [facility] disintegrat 00:00: mouth [place] ing tablet 00 needed for [facility] ical Migraine Branch (take 1 on onset of migraine and can repeat in 2 hrs). May repeat in 2 hours if needed rizatriptan 2021-11 Yes [id number] 5mg Take 1 [facility] 5 mg 0-25 9105 tablet by [facility] disintegrat 00:00: mouth [place] ing tablet 00 needed for Med ical Migraine Branch (take 1 on onset of migraine and can repeat in 2 hrs). May repeat in 2 hours if needed rizatriptan 2021-11 Yes [id number] 5mg Take 1 [facility] 5 mg 0-25 9105 tablet by [facility] disintegrat 00:00: mouth [place] ing tablet 00 needed for Med ical Migraine Branch (take 1 on onset of migraine and can repeat in 2 hrs). May repeat in 2 hours if needed rizatriptan 2021-11 Yes [id number] 5mg Take 1 [facility] 5 mg 0-25 9105 tablet by [facility] disintegrat 00:00: mouth [place] ing tablet 00 needed for Med ical Migraine Branch (take 1 on onset of migraine and can repeat in 2 hrs). May repeat in 2 hours if needed rizatriptan 2021-11 Yes [id number] 5mg Take 1 [facility] 5 mg 0-25 9105 tablet by [facility] of disintegrat 00:00: mouth [place] ing tablet 00 needed for Med ical Migraine Branch (take 1 on onset of migraine and can repeat in 2 hrs). May repeat in 2 hours if needed rizatriptan 2021-11 Yes [id number] 5mg Take 1 [facility] 5 mg 0-25 9105 tablet by [facility] disintegrat 00:00: mouth [place] ing tablet 00 needed for Med ical Migraine Branch (take 1 on onset of migraine and can repeat in 2 hrs). May repeat in 2 hours if needed rizatriptan 2021-11 Yes [id number] 5mg Take 1 [facility] 5 mg 0-25 9105 tablet by [facility] disintegrat 00:00: mouth [place] ing tablet 00 needed for Med ical Migraine Branch (take 1 on onset of migraine and can repeat in 2 hrs). May repeat in 2 hours if needed rizatriptan 2021-11 Yes [id number] 5mg Take 1 [facility] 5 mg 0-25 9105 tablet by [facility] disintegrat 00:00: mouth [place] ing tablet 00 needed for Med ical Migraine Branch (take 1 on onset of migraine and can repeat in 2 hrs). May repeat in 2 hours if needed rizatriptan 2021-11 Yes [id number] 5mg Take 1 [facility] 5 mg 0-25 9105 tablet by [facility] of disintegrat 00:00: mouth [place] ing tablet 00 needed for Med ical Migraine Branch (take 1 on onset of migraine and can repeat in 2 hrs). May repeat in 2 hours if needed rizatriptan 2021-11 Yes [id number] 5mg Take 1 [facility] 5 mg 0-25 9105 tablet by [facility] disintegrat 00:00: mouth [place] ing tablet 00 needed for Med ical Migraine Branch (take 1 on onset of migraine and can repeat in 2 hrs). May repeat in 2 hours if needed rizatriptan 2021-11 Yes [id number] 5mg Take 1 [facility] 5 mg 0-25 9105 tablet by [facility] disintegrat 00:00: mouth [place] ing tablet 00 needed for Med ical Migraine Branch (take 1 on onset of migraine and can repeat in 2 hrs). May repeat in 2 hours if needed rizatriptan 2021-11 Yes [id number] 5mg Take 1 [facility] 5 mg 0-25 9105 tablet by [facility] of disintegrat 00:00: mouth [place] ing tablet 00 needed for Med ical Migraine Branch (take 1 on onset of migraine and can repeat in 2 hrs). May repeat in 2 hours if needed rizatriptan 2021-11 Yes [id number] 5mg Take 1 [facility] 5 mg 0-25 9105 tablet by [facility] disintegrat 00:00: mouth [place] ing tablet 00 needed for Med ical Migraine Branch (take 1 on onset of migraine and can repeat in 2 hrs). May repeat in 2 hours if needed rizatriptan 2021-11 Yes [id number] 5mg Take 1 [facility] 5 mg 0-25 9105 tablet by [facility] disintegrat 00:00: mouth [place] ing tablet 00 needed for Med ical Migraine Branch (take 1 on onset of migraine and can repeat in 2 hrs). May repeat in 2 hours if needed rizatriptan 2021-11 Yes [id number] 5mg Take 1 [facility] 5 mg 0-25 9105 tablet by [facility] disintegrat 00:00: mouth [place] ing tablet 00 needed for Med ical Migraine Branch (take 1 on onset of migraine and can repeat in 2 hrs). May repeat in 2 hours if needed rizatriptan 2021-11 Yes [id number] 5mg Take 1 [facility] 5 mg 0-25 9105 tablet by [facility] disintegrat 00:00: mouth [place] ing tablet 00 needed for Med ical Migraine Branch (take 1 on onset of migraine and can repeat in 2 hrs). May repeat in 2 hours if needed rizatriptan 2021-11 Yes [id number] 5mg Take 1 [facility] 5 mg 0-25 9105 tablet by [facility] disintegrat 00:00: mouth [place] ing tablet 00 needed for Med ical Migraine Branch (take 1 on onset of migraine and can repeat in 2 hrs). May repeat in 2 hours if needed rizatriptan 2021-11 Yes [id number] 5mg Take 1 [facility] 5 mg 0-25 9105 tablet by [facility] of disintegrat 00:00: mouth [place] ing tablet 00 needed for Med ical Migraine Branch (take 1 on onset of migraine and can repeat in 2 hrs). May repeat in 2 hours if needed rizatriptan 2021-11 Yes [id number] 5mg Take 1 [facility] 5 mg 0-25 9105 tablet by [facility] of disintegrat 00:00: mouth [place] ing tablet 00 needed for Med ical Migraine Branch (take 1 on onset of migraine and can repeat in 2 hrs). May repeat in 2 hours if needed rizatriptan 2021-11 Yes [id number] 5mg Take 1 [facility] 5 mg 0-25 9105 tablet by [facility] of disintegrat 00:00: mouth [place] ing tablet 00 needed for Med ical Migraine Branch (take 1 on onset of migraine and can repeat in 2 hrs). May repeat in 2 hours if needed rizatriptan 2021-11 Yes [id number] 5mg Take 1 [facility] 5 mg 0-25 9105 tablet by [facility] of disintegrat 00:00: mouth [place] ing tablet 00 needed for Med ical Migraine Branch (take 1 on onset of migraine and can repeat in 2 hrs). May repeat in 2 hours if needed rizatriptan 2021-11 Yes [id number] 5mg Take 1 [facility] 5 mg 0-25 9105 tablet by [facility] of disintegrat 00:00: mouth [place] ing tablet 00 needed for Med ical Migraine Branch (take 1 on onset of migraine and can repeat in 2 hrs). May repeat in 2 hours if needed rizatriptan 2021-11 Yes [id number] 5mg Take 1 [facility] 5 mg 0-25 9105 tablet by [facility] of disintegrat 00:00: mouth [place] ing tablet 00 needed for Med ical Migraine Branch (take 1 on onset of migraine and can repeat in 2 hrs). May repeat in 2 hours if needed rizatriptan 2021-11- No Unive rs ([employer] 0-25 03-14 ity of ) 5 mg 00:00: 00:00 [place] disintegrat 00 :00 MD ing tablet [facility] NITROGLYCER 2021-[id number] 1 [facility] IN 0.4 mg 0-24 TABLET ity of sublingual 00:00: UNDER THE [place] tablet 00 TONGUE Medical EVERY 5 Branch MINUTES NEEDED FOR CHEST PAIN. NITROGLYCER 2021-[id number] 1 [facility] IN 0.4 mg 0-24 TABLET ity of sublingual 00:00: UNDER THE [place] tablet 00 TONGUE Medical EVERY 5 Branch MINUTES NEEDED FOR CHEST PAIN. NITROGLYCER 2021-[id number] 1 [facility] IN 0.4 mg 0-24 TABLET ity of sublingual 00:00: UNDER THE [place] tablet 00 TONGUE Medical EVERY 5 Branch MINUTES NEEDED FOR CHEST PAIN. NITROGLYCER 2021-[id number] 1 [facility] IN 0.4 mg 0-24 TABLET ity of sublingual 00:00: UNDER THE [place] tablet 00 TONGUE Medical EVERY 5 Branch MINUTES NEEDED FOR CHEST PAIN. NITROGLYCER 2021-[id number] 1 [facility] IN 0.4 mg 0-24 TABLET ity of sublingual 00:00: UNDER THE [place] tablet 00 TONGUE Medical EVERY 5 Branch MINUTES NEEDED FOR CHEST PAIN. NITROGLYCER 2021-[id number] 1 [facility] IN 0.4 mg 0-24 TABLET ity of sublingual 00:00: UNDER THE [place] tablet 00 TONGUE Medical EVERY 5 Branch MINUTES NEEDED FOR CHEST PAIN. NITROGLYCER 2021-[id number] 1 [facility] IN 0.4 mg 0-24 TABLET ity of sublingual 00:00: UNDER THE [place] tablet 00 TONGUE Medical EVERY 5 Branch MINUTES NEEDED FOR CHEST PAIN. NITROGLYCER 2021-[id number] 1 [facility] IN 0.4 mg 0-24 TABLET ity of sublingual 00:00: UNDER THE [place] tablet 00 TONGUE Medical EVERY 5 Branch MINUTES NEEDED FOR CHEST PAIN. NITROGLYCER 2022-[id number] 1 [facility] IN 0.4 mg 0-24 TABLET ity of sublingual 00:00: UNDER THE [place] tablet 00 TONGUE Medical EVERY 5 Branch MINUTES NEEDED FOR CHEST PAIN. NITROGLYCER 2021-[id number] 1 [facility] IN 0.4 mg 0-24 TABLET ity of sublingual 00:00: UNDER THE [place] tablet 00 TONGUE Medical EVERY 5 Branch MINUTES NEEDED FOR CHEST PAIN. NITROGLYCER 2021-[id number] 1 [facility] IN 0.4 mg 0-24 TABLET ity of sublingual 00:00: UNDER THE [place] tablet 00 TONGUE Medical EVERY 5 Branch MINUTES NEEDED FOR CHEST PAIN. NITROGLYCER 2021-[id number] 1 [facility] IN 0.4 mg 0-24 TABLET ity of sublingual 00:00: UNDER THE [place] tablet 00 TONGUE Medical EVERY 5 Branch MINUTES NEEDED FOR CHEST PAIN. NITROGLYCER 2021-[id number] 1 [facility] IN 0.4 mg 0-24 TABLET ity of sublingual 00:00: UNDER THE [place] tablet 00 TONGUE Medical EVERY 5 Branch MINUTES NEEDED FOR CHEST PAIN. NITROGLYCER 2021-[id number] 1 [facility] IN 0.4 mg 0-24 TABLET ity of sublingual 00:00: UNDER THE [place] tablet 00 TONGUE Medical EVERY 5 Branch MINUTES NEEDED FOR CHEST PAIN. NITROGLYCER 2021-[id number] 1 [facility] IN 0.4 mg 0-24 TABLET ity of sublingual 00:00: UNDER THE [place] tablet 00 TONGUE Medical EVERY 5 Branch MINUTES NEEDED FOR CHEST PAIN. NITROGLYCER 2021-[id number] 1 [facility] IN 0.4 mg 0-24 TABLET ity of sublingual 00:00: UNDER THE [place] tablet 00 TONGUE Medical EVERY 5 Branch MINUTES NEEDED FOR CHEST PAIN. NITROGLYCER 2021-[id number] 1 [facility] IN 0.4 mg 0-24 TABLET ity of sublingual 00:00: UNDER THE [place] tablet 00 TONGUE Medical EVERY 5 Branch MINUTES NEEDED FOR CHEST PAIN. NITROGLYCER 2021-[id number] 1 [facility] IN 0.4 mg 0-24 TABLET ity of sublingual 00:00: UNDER THE [place] tablet 00 TONGUE Medical EVERY 5 Branch MINUTES NEEDED FOR CHEST PAIN. NITROGLYCER 2022-[id number] 1 [facility] IN 0.4 mg 0-24 TABLET ity of sublingual 00:00: UNDER THE [place] tablet 00 TONGUE Medical EVERY 5 Branch MINUTES NEEDED FOR CHEST PAIN. NITROGLYCER 2021-[id number] 1 [facility] IN 0.4 mg 0-24 TABLET ity of sublingual 00:00: UNDER THE [place] tablet 00 TONGUE Medical EVERY 5 Branch MINUTES NEEDED FOR CHEST PAIN. NITROGLYCER 2021-[id number] 1 [facility] IN 0.4 mg 0-24 TABLET ity of sublingual 00:00: UNDER THE [place] tablet 00 TONGUE Medical EVERY 5 Branch MINUTES NEEDED FOR CHEST PAIN. NITROGLYCER 2021-[id number] 1 [facility] IN 0.4 mg 0-24 TABLET ity of sublingual 00:00: UNDER THE [place] tablet 00 TONGUE Medical EVERY 5 Branch MINUTES NEEDED FOR CHEST PAIN. NITROGLYCER 2021-[id number] 1 [facility] IN 0.4 mg 0-24 TABLET ity of sublingual 00:00: UNDER THE [place] tablet 00 TONGUE Medical EVERY 5 Branch MINUTES NEEDED FOR CHEST PAIN. NITROGLYCER 2021-[id number] 1 [facility] IN 0.4 mg 0-24 TABLET ity of sublingual 00:00: UNDER THE [place] tablet 00 TONGUE Medical EVERY 5 Branch MINUTES NEEDED FOR CHEST PAIN. NITROGLYCER 2021-[id number] 1 [facility] IN 0.4 mg 0-24 TABLET ity of sublingual 00:00: UNDER THE [place] tablet 00 TONGUE Medical EVERY 5 Branch MINUTES NEEDED FOR CHEST PAIN. NITROGLYCER 2021-[id number] 1 [facility] IN 0.4 mg 0-24 TABLET ity of sublingual 00:00: UNDER THE [place] tablet 00 TONGUE Medical EVERY 5 Branch MINUTES NEEDED FOR CHEST PAIN. NITROGLYCER 2021-[id number] 1 [facility] IN 0.4 mg 0-24 TABLET ity of sublingual 00:00: UNDER THE [place] tablet 00 TONGUE Medical EVERY 5 Branch MINUTES NEEDED FOR CHEST PAIN. NITROGLYCER 2021-[id number] 1 [facility] IN 0.4 mg 0-24 TABLET ity of sublingual 00:00: UNDER THE [place] tablet 00 TONGUE Medical EVERY 5 Branch MINUTES NEEDED FOR CHEST PAIN. NITROGLYCER 2021-[id number] 1 [facility] IN 0.4 mg 0-24 TABLET ity of sublingual 00:00: UNDER THE [place] tablet 00 TONGUE Medical EVERY 5 Branch MINUTES NEEDED FOR CHEST PAIN. mesalamine 2021-11 Yes TAKE 4 Unive rs (APRISO) 0-24 CAPSULES ity of 0.375 gram 00:00: BY MOUTH [place] 24 hr 00 DAILY MD restrepo [facility] GABAPENTIN 2021- Yes [id number] TAKE 1 [facility] 600 mg 0-21 TABLET BY ity of tablet 00:00: MOUTH [place] THREE Medical TIMES Branch DAILY GABAPENTIN 2021- Yes [id number] TAKE 1 [facility] 600 mg 0-21 TABLET BY ity of tablet 00:00: [facility] THREE Medical TIMES Branch DAILY GABAPENTIN 2021- Yes [id number] TAKE 1 [facility] 600 mg 0-21 TABLET BY ity of tablet 00:00: [facility] THREE Medical TIMES Branch DAILY GABAPENTIN 2021- Yes [id number] TAKE 1 [facility] 600 mg 0-21 TABLET BY ity of tablet 00:00: [facility] THREE Medical TIMES Branch DAILY GABAPENTIN 2021- Yes [id number] TAKE 1 [facility] 600 mg 0-21 TABLET BY ity of tablet 00:00: MOUTH [place] THREE Medical TIMES Branch DAILY GABAPENTIN 2021- Yes [id number] TAKE 1 [facility] 600 mg 0-21 TABLET BY ity of tablet 00:00: [facility] THREE Medical TIMES Branch DAILY GABAPENTIN 2021-1 Yes [id number] TAKE 1 [facility] 600 mg 0-21 TABLET BY ity of tablet 00:00: [facility] THREE Medical TIMES Branch DAILY GABAPENTIN 2021- Yes [id number] TAKE 1 [facility] 600 mg 0-21 TABLET BY ity of tablet 00:00: [facility] THREE Medical TIMES Branch DAILY GABAPENTIN 2021- Yes [id number] TAKE 1 [facility] 600 mg 0-21 TABLET BY ity of tablet 00:00: [facility] THREE Medical TIMES Branch DAILY GABAPENTIN 2021- Yes [id number] TAKE 1 [facility] 600 mg 0-21 TABLET BY ity of tablet 00:00: MOUTH [place] THREE Medical TIMES Branch DAILY GABAPENTIN 2021- Yes [id number] TAKE 1 [facility] 600 mg 0-21 TABLET BY ity of tablet 00:00: [facility] THREE Medical TIMES Branch DAILY GABAPENTIN 2021- 202- No [id number] TAKE 1 [facility] 600 mg 0-21 11-17 TABLET BY ity of tablet 00:00: 00:00 MOUTH [place] 00 :00 THREE Medical TIMES Branch DAILY sucralfate 2021-11- No TAKE 1 Univ ers (CARAFATE) 0-20 02-14 TABLET BY ity of 1 g tablet 00:00: 00:00 MOUTH [place] 00 :00 TWICE MD DAILY [facility] HYDROcodone 2021-11 Yes [id number] 1{tbl} Take 1 [...] Indication s: chronic pain HYDRALAZINE 2021-11 Yes [id number] TAKE 1 [facility] 100 mg 0-05 TABLET BY ity of tablet 00:00: MOUTH THREE Medical TIMES Branch DAILY HYDRALAZINE 2021-11 Yes [id number] TAKE 1 [facility] 100 mg 0-05 TABLET BY ity of tablet 00:00: MOUTH THREE Medical TIMES Branch DAILY HYDRALAZINE 2021-11 Yes [id number] TAKE 1 [facility] 100 mg 0-05 TABLET BY ity of tablet 00:00: MOUTH THREE Medical TIMES Branch DAILY HYDRALAZINE 2021-11 Yes [id number] TAKE 1 [facility] 100 mg 0-05 TABLET BY ity of tablet 00:00: MOUTH THREE Medical TIMES Branch DAILY HYDRALAZINE 2021-11 Yes [id number] TAKE 1 [facility] 100 mg 0-05 TABLET BY ity of tablet 00:00: MOUTH THREE Medical TIMES Branch DAILY HYDRALAZINE 2021-11 Yes [id number] TAKE 1 [facility] 100 mg 0-05 TABLET BY ity of tablet 00:00: MOUTH THREE Medical TIMES Branch DAILY HYDRALAZINE 2021-11 Yes [id number] TAKE 1 [facility] 100 mg 0-05 TABLET BY ity of tablet 00:00: MOUTH THREE Medical TIMES Branch DAILY HYDRALAZINE 2021-11 Yes [id number] TAKE 1 [facility] 100 mg 0-05 TABLET BY ity of tablet 00:00: MOUTH [place] 00 THREE Medical TIMES Branch DAILY HYDRALAZINE 2021-11 Yes [id number] TAKE 1 [facility] 100 mg 0-05 TABLET BY ity of tablet 00:00: MOUTH [place] 00 THREE Medical TIMES Branch DAILY HYDRALAZINE 2021-11 Yes [id number] TAKE 1 [facility] 100 mg 0-05 TABLET BY ity of tablet 00:00: MOUTH [place] 00 THREE Medical TIMES Branch DAILY HYDRALAZINE 2021-11 Yes [id number] TAKE 1 [facility] 100 mg 0-05 TABLET BY ity of tablet 00:00: MOUTH [place] 00 THREE Medical TIMES Branch DAILY HYDRALAZINE 2021-11- No [id number] TAKE 1 [facility] 100 mg 0-05 11-03 [...] Medical x 5/16 Syrg Branch GABAPENTIN Yes [id number] TAKE 1 [facility] 600 mg 9-26 TABLET [...] Medical x 5/16 Syrg Branch GABAPENTIN Yes [id number] TAKE 1 [facility] 600 mg 9-26 TABLET [...] x 5/16 Syrg Branch GABAPENTIN 2-0 Yes [id number] TAKE 1 [facility] 600 mg 9-26 TABLET [...] x 5/16 Syrg Branch GABAPENTIN 2021-0 Yes [id number] TAKE 1 [facility] 600 mg 9-26 TABLET BY ity of tablet 00:00: MOUTH [place] THREE Medical TIMES Branch DAILY NITROGLYCER 2021-[address] 1 Uni vers IN 0.4 mg 9-26 TABLET ity of sublingual 00:00: [facility]ER THE [place] tablet 00 TONGUE Medical EVERY 5 Branch MINUTES NEEDED FOR CHEST PAIN. INSULIN 202-0 Yes USE TWICE Unive rs SYRINGE-NEE 9-26 [...] 5 mg Un ally 5 mg tablet - by mouth ity of 00:00: in the morning. Medical Branch INSULIN 2022-0 Yes USE TWICE Unive rs SYRINGE-NEE 9-26 DAILY WITH it y of DLE U-100 1 00:00: MEALS [place] mL 31 gauge 00 Medical x 5/16 Syrg Branch amLODIPine 2022-0 Yes 5mg Take 5 mg Un ally 5 mg tablet 9-26 by mouth ity of 00:00: in the [place] morning. Medical Branch INSULIN 2022-0 Yes USE TWICE Unive rs SYRINGE-NEE 9-26 DAILY WITH it y of DLE U-100 1 00:00: MEALS [place] mL 31 gauge 00 Medical x 5/16 Syrg Branch amLODIPine 2022-0 Yes 5mg Take 5 mg Un ally 5 mg tablet 9-26 by mouth ity of 00:00: in the [place] morning. Medical Branch INSULIN 2022-0 Yes USE TWICE Unive rs SYRINGE-NEE 9-26 DAILY WITH it y of DLE U-100 1 00:00: MEALS [facility] 31 gauge 00 Medical x 5/16 Syrg Branch amLODIPine 2022-0 Yes 5mg Take 5 mg Un ally 5 mg tablet 9-26 by mouth ity of 00:00: in the [place] morning. Medical Branch INSULIN 2022-0 Yes USE TWICE Unive rs SYRINGE-NEE 9-26 DAILY WITH it y of DLE U-100 1 00:00: MEALS [place] mL 31 gauge 00 Medical x 5/16 Syrg Branch amLODIPine 2022-0 Yes 5mg Take 5 mg Un ally 5 mg tablet 9-26 by mouth ity of 00:00: in the [place] morning. Medical Branch INSULIN 2022-0 Yes USE TWICE Unive rs SYRINGE-NEE 9-26 DAILY WITH it y of DLE U-100 1 00:00: MEALS [place] mL 31 gauge 00 Medical x 5/16 Syrg Branch amLODIPine 2022-0 Yes 5mg Take 5 mg Un ally 5 mg tablet 9-26 by mouth ity of 00:00: in the [place] morning. Medical Branch INSULIN 2022-0 Yes USE TWICE Unive rs SYRINGE-NEE 9-26 DAILY WITH it y of DLE U-100 1 00:00: MEALS [place] mL 31 gauge 00 Medical x 5/16 Syrg Branch amLODIPine 2022-0 Yes 5mg Take 5 mg Un ally 5 mg tablet 9-26 by mouth ity of 00:00: in the [place] morning. Medical Branch INSULIN 2022-0 Yes USE TWICE Unive rs SYRINGE-NEE 9-26 DAILY WITH it y of DLE U-100 1 00:00: MEALS [place] mL 31 gauge 00 Medical x 5/16 Syrg Branch amLODIPine 2022-0 Yes 5mg Take 5 mg Un ally 5 mg tablet 9-26 by mouth ity of 00:00: in the [place] morning. Medical Branch INSULIN 2022-0 Yes USE TWICE Unive rs SYRINGE-NEE 9-26 DAILY WITH it y of DLE U-100 1 00:00: MEALS [place] mL 31 gauge 00 Medical x 5/16 Syrg Branch amLODIPine 2-0 Yes 5mg Take 5 mg Un ally 5 mg tablet 9-26 by mouth ity of 00:00: in the [place] morning. Medical Branch INSULIN 2022-0 Yes USE TWICE Unive rs SYRINGE-NEE 9-26 DAILY WITH it y of DLE U-100 1 00:00: MEALS [facility] 31 gauge 00 Medical x 5/16 Syrg Branch amLODIPine 2-0 Yes 5mg Take 5 mg Un ally 5 mg tablet 9-26 by mouth ity of 00:00: in the [place] morning. Medical Branch INSULIN 2022-0 Yes USE TWICE Unive rs SYRINGE-NEE 9-26 DAILY WITH it y of DLE U-100 1 00:00: MEALS [place] mL 31 gauge 00 Medical x 5/16 Syrg Branch amLODIPine 2022-0 Yes 5mg Take 5 mg Un ally 5 mg tablet 9-26 by mouth ity of 00:00: in the [place] morning. Medical Branch INSULIN 2022-0 Yes USE TWICE Unive rs SYRINGE-NEE 9-26 DAILY WITH it y of DLE U-100 1 00:00: MEALS [place] mL 31 gauge 00 Medical x 5/16 Syrg Branch amLODIPine 2022-0 Yes 5mg Take 5 mg Un ally 5 mg tablet 9-26 by mouth ity of 00:00: in the [place] morning. Medical Branch INSULIN 2022-0 Yes USE TWICE Unive rs SYRINGE-NEE 9-26 DAILY WITH it y of DLE U-100 1 00:00: MEALS [place] mL 31 gauge 00 Medical x 5/16 Syrg Branch amLODIPine 2022-0 Yes 5mg Take 5 mg Un ally 5 mg tablet 9-26 by mouth ity of 00:00: in the [place] morning. Medical Branch INSULIN 0 Yes USE TWICE Unive rs SYRINGE-NEE 9-26 DAILY WITH it y of DLE U-100 1 00:00: MEALS [place] mL 31 gauge 00 Medical x 5/16 Syrg Branch amLODIPine 2021-0 Yes 5mg Take 5 mg Un ally 5 mg tablet 9-26 by mouth ity of 00:00: in the [place] morning. Medical Branch INSULIN 0 Yes USE TWICE Unive rs SYRINGE-NEE 9-26 DAILY WITH it y of DLE U-100 1 00:00: MEALS [place] mL 31 gauge 00 Medical x 5/16 Syrg Branch amLODIPine 2021-0 Yes 5mg Take 5 mg Un ally 5 mg tablet 9-26 by mouth ity of 00:00: in the [place] morning. Medical Branch INSULIN Yes USE TWICE Unive rs SYRINGE-NEE 9-26 DAILY WITH it y of DLE U-100 1 00:00: MEALS [place] mL 31 gauge 00 Medical x 5/16 Syrg Branch amLODIPine 2021-0 Yes 5mg Take 5 mg Un ally 5 mg tablet 9-26 by mouth ity of 00:00: in the [place] morning. Medical Branch NITROGLYCER 0 2021- No PLACE 1 Un ally IN 0.4 mg 9-26 10-24 TABLET ity of sublingual 00:00: 00:00 UNDER THE [place] tablet 00 :00 TONGUE Medical EVERY 5 Branch MINUTES NEEDED FOR CHEST PAIN. GABAPENTIN 2021-0 202- No [id number] TAKE 1 [facility] 600 mg 9-26 10-21 TABLET BY ity of tablet 00:00: 00:00 MOUTH [place] 00 :00 THREE Medical TIMES Branch DAILY Motegrity 2 2021-0 Yes TAKE 1 Univ ers mg tab 9-25 TABLET BY ity of 00:00: MOUTH [place] 00 DAILY MD Liane olivier [facility] COLCHICINE 2021-0 Yes [id number] .6mg TAKE 1 U nivers 0.6 mg 9-19 TABLET BY ity of tablet 00:00: MOUTH [place] 00 DAILY Medical Branch COLCHICINE 2021-0 Yes [id number] .6mg TAKE 1 U nivers 0.6 mg 9-19 TABLET BY ity of tablet 00:00: MOUTH [place] 00 DAILY Medical Branch COLCHICINE 2022-0 Yes [id number] .6mg TAKE 1 U nivers 0.6 mg 9-19 TABLET BY ity of tablet 00:00: MOUTH DAILY Medical Branch COLCHICINE 2022-0 Yes [id number] .6mg TAKE 1 U nivers 0.6 mg 9-19 TABLET BY ity of tablet 00:00: MOUTH DAILY Medical Branch COLCHICINE 2022-0 Yes [id number] .6mg TAKE 1 U nivers 0.6 mg 9-19 TABLET BY ity of tablet 00:00: MOUTH DAILY Medical Branch COLCHICINE 2022-0 Yes [id number] .6mg TAKE 1 U nivers 0.6 mg 9-19 TABLET BY ity of tablet 00:00: [facility] DAILY Medical Branch COLCHICINE 2022-0 Yes [id number] .6mg TAKE 1 U nivers 0.6 mg 9-19 TABLET BY ity of tablet 00:00: [facility] DAILY Medical Branch COLCHICINE 2022-0 Yes [id number] .6mg TAKE 1 U nivers 0.6 mg 9-19 TABLET BY ity of tablet 00:00: [facility] DAILY Medical Branch COLCHICINE 2022-0 Yes [id number] .6mg TAKE 1 U nivers 0.6 mg 9-19 TABLET BY ity of tablet 00:00: [facility] DAILY Medical Branch COLCHICINE 2022-0 Yes [id number] .6mg TAKE 1 U nivers 0.6 mg 9-19 TABLET BY ity of tablet 00:00: [facility] DAILY Medical Branch COLCHICINE 2022-0 Yes [id number] .6mg TAKE 1 U nivers 0.6 mg 9-19 TABLET BY ity of tablet 00:00: [facility] DAILY Medical Branch COLCHICINE 2022-0 Yes [id number] .6mg TAKE 1 U nivers 0.6 mg 9-19 TABLET BY ity of tablet 00:00: [facility] DAILY Medical Branch COLCHICINE 2022-0 Yes [id number] .6mg TAKE 1 U nivers 0.6 mg 9-19 TABLET BY ity of tablet 00:00: MOUTH DAILY Medical Branch COLCHICINE 2022-0 Yes [id number] .6mg TAKE 1 U nivers 0.6 mg 9-19 TABLET BY ity of tablet 00:00: [facility] DAILY Medical Branch COLCHICINE 2022-0 Yes [id number] .6mg TAKE 1 U nivers 0.6 mg 9-19 TABLET BY ity of tablet 00:00: MOUTH [place] DAILY Medical Branch COLCHICINE 2022-0 Yes [id number] .6mg TAKE 1 U nivers 0.6 mg 9-19 TABLET BY ity of tablet 00:00: MOUTH [place] DAILY Medical Branch COLCHICINE 2022-0 Yes [id number] .6mg TAKE 1 U nivers 0.6 mg 9-19 TABLET BY ity of tablet 00:00: MOUTH [place] DAILY Medical Branch COLCHICINE 2022-0 Yes [id number] .6mg TAKE 1 U nivers 0.6 mg 9-19 TABLET BY ity of tablet 00:00: [facility] DAILY Medical Branch COLCHICINE 2022-0 Yes [id number] .6mg TAKE 1 U nivers 0.6 mg 9-19 TABLET BY ity of tablet 00:00: [facility] DAILY Medical Branch COLCHICINE 2022-0 Yes [id number] .6mg TAKE 1 U nivers 0.6 mg 9-19 TABLET BY ity of tablet 00:00: [facility] DAILY Medical Branch COLCHICINE 2022-0 Yes [id number] .6mg TAKE 1 U nivers 0.6 mg 9-19 TABLET BY ity of tablet 00:00: [facility] DAILY Medical Branch COLCHICINE 2022-0 Yes [id number] .6mg TAKE 1 U nivers 0.6 mg 9-19 TABLET BY ity of tablet 00:00: [facility] DAILY Medical Branch COLCHICINE 2022-0 Yes [id number] .6mg TAKE 1 U nivers 0.6 mg 9-19 TABLET BY ity of tablet 00:00: [facility] DAILY Medical Branch COLCHICINE 2022-0 Yes [id number] .6mg TAKE 1 U nivers 0.6 mg 9-19 TABLET BY ity of tablet 00:00: [facility] DAILY Medical Branch COLCHICINE 2022-0 Yes [id number] .6mg TAKE 1 U nivers 0.6 mg 9-19 TABLET BY ity of tablet 00:00: [facility] DAILY Medical Branch COLCHICINE 2022-0 Yes [id number] .6mg TAKE 1 U nivers 0.6 mg 9-19 TABLET BY ity of tablet 00:00: [facility] DAILY Medical Branch COLCHICINE 2022-0 Yes [id number] .6mg TAKE 1 U nivers 0.6 mg 9-19 TABLET BY ity of tablet 00:00: MOUTH [place] 00 DAILY Medical Branch COLCHICINE 2022-0 Yes [id number] .6mg TAKE 1 U nivers 0.6 mg 9-19 TABLET BY ity of tablet 00:00: MOUTH [place] 00 DAILY Medical Branch COLCHICINE 2022-0 Yes [id number] .6mg TAKE 1 U nivers 0.6 mg 9-19 TABLET BY ity of tablet 00:00: MOUTH [place] 00 DAILY Medical Branch COLCHICINE 2022-0 Yes [id number] .6mg TAKE 1 U nivers 0.6 mg 9-19 TABLET BY ity of tablet 00:00: MOUTH [place] 00 DAILY Medical Branch COLCHICINE 2022-0 Yes [id number] .6mg TAKE 1 U nivers 0.6 mg 9-19 TABLET BY ity of tablet 00:00: MOUTH [place] 00 DAILY Medical Branch COLCHICINE 2022-0 2023- No [id number] .6mg TAKE 1 [facility] 0.6 mg 9-19 -18 TABLET BY ity of tablet 00:00: 00:00 MOUTH [place] 00 :00 DAILY Medical Branch HYDROcodone 2021-0 [...] Indication s: chronic pain albuterol Yes albuterol [facility] (PROVENTIL) 07-08 sulfate [facility] ge (2.5 mg/3 12:00: 2.5 mg/3 of mL) 0.083% 32 mL (0.083 Medi patsy nebulizer %) e solution solution for nebulizati on metoprolol Yes 100mg Take 100 [facility] (TOPROL-XL) 07-08 mg by [place] 100 MG XL 12:00: mouth. of tablet 32 Medicin e albuterol Yes albuterol [facility] 108 (90 07-08 sulfate [place] [facility]) 12:00: HFA 90 of mcg/act 32 mcg/actuat Medici n inhaler ion e aerosol inhaler Mesalamine Yes mesalamine [facility] 0.375 g 07-08 ER 0.375 [facility] CP24 12:00: gram of 32 capsule,ex Medicin tended e release 24 hr hydrochloro Yes 25mg Take 25 mg [facility] thiazide 07-08 by mouth. Colleg e (HYDRODIURI 12:00: of L) 25 MG 32 Medicin tablet e diclofenac Yes diclofenac [facility] (VOLTAREN) 07-08 sodium 75 An ege 75 MG EC 12:00: mg of tablet 32 tablet,del Medicin ayed e release TAKE 1 TABLET BY MOUTH TWICE DAILY WITH MEALS cyclobenzap Yes cyclobenza [facility] rine 07-08 w[facility] 10 [facility] (FLEXERIL) 12:00: mg tablet of 10 MG 32 TAKE 1 Medicin tablet TABLET BY e MOUTH EVERY NIGHT AT BEDTIME NEEDED FOR MUSCLE SPASM OR EAR PAIN clonidine Yes clonidine [facility] (CATAPRESS) 07-08 HCl 0.2 mg Co llege 0.2 MG 12:00: tablet of tablet 32 TAKE 1 Medicin TABLET BY e MOUTH THREE TIMES DAILY atorvastati Yes atorvastat [facility] n (LIPITOR) 07-08 in 20 mg An ege 20 MG 12:00: tablet of tablet [...] 100 [facility] (ZYLOPRIM) 07-08 mg by [place] 100 MG 12:00: mouth. of tablet 32 Medicin e Fluticasone Yes Trelegy [facility] -Umeclidin- 07-08 Ellipt[facility] Vilant 12:00: 100 of (TRELEGY 32 mcg-62.5 Medicin ELLIPTA) mcg-25 mcg e 100-62.5-25 powder for MCG/INH inhalation AEPB INHALE 1 PUFF BY MOUTH EVERY DAY albuterol Yes albuterol [facility] (PROVENTIL) 07-08 sulfate [facility] (2.5 mg/3 12:00: 2.5 mg/3 of mL) 0.083% 32 mL (0.083 Medi patsy nebulizer %) e solution solution for nebulizati on metoprolol Yes 100mg Take 100 [facility] (TOPROL-XL) 07-08 mg by [place] 100 MG XL 12:00: mouth. of tablet 32 Medicin e albuterol Yes albuterol [facility] 108 (90 07-08 sulfate [place] [facility]) 12:00: HFA 90 of mcg/act 32 mcg/actuat Medici n inhaler ion e aerosol inhaler Mesalamine Yes mesalamine [facility] 0.375 g 07-08 ER 0.375 [place] CP24 12:00: gram of 32 capsule,ex Medicin tended e release 24 hr hydrochloro Yes 25mg Take 25 mg [facility] thiazide 07-08 by mouth. Colleg e (HYDRODIURI 12:00: of L) 25 MG 32 Medicin tablet e diclofenac Yes diclofenac [facility] (VOLTAREN) 07-08 sodium 75 An ege 75 MG EC 12:00: mg of tablet 32 tablet,del Medicin ayed e release TAKE 1 TABLET BY MOUTH TWICE DAILY WITH MEALS cyclobenzap Yes cyclobenza [facility] rine 07-08 wiley 10 [place] (FLEXERIL) 12:00: mg tablet of 10 MG 32 TAKE 1 Medicin tablet TABLET BY e MOUTH EVERY NIGHT AT BEDTIME NEEDED FOR MUSCLE SPASM OR EAR PAIN clonidine Yes clonidine [facility] (CATAPRESS) 07-08 HCl 0.2 mg Co [facility]lege 0.2 MG 12:00: tablet of tablet 32 TAKE 1 Medicin TABLET BY e MOUTH THREE TIMES DAILY atorvastati Yes atorvastat [facility] n (LIPITOR) 07-08 in 20 mg An ege 20 MG 12:00: tablet of tablet [...] tablet 32 Medicin e Fluticasone Yes Trelegy [facility] -Umeclidin- 07-08 [facility] 12:00: 100 of (TRELEGY 32 mcg-62.5 Medicin ELLIPTA) mcg-25 mcg e 100-62.5-25 powder for MCG/INH inhalation AEPB INHALE 1 PUFF BY MOUTH EVERY DAY albuterol Yes albuterol [facility] (PROVENTIL) 07-08 sulfate [facility] ge (2.5 mg/3 12:00: 2.5 mg/3 of mL) 0.083% 32 mL (0.083 Medi patsy nebulizer %) e solution solution for nebulizati on metoprolol Yes 100mg Take 100 [facility] (TOPROL-XL) 07-08 mg by [place] 100 MG XL 12:00: mouth. of tablet 32 Medicin e albuterol Yes albuterol [facility] 108 (90 07-08 sulfate [employer] [facility]) 12:00: HFA 90 of mcg/act 32 mcg/actuat Medici n inhaler ion e aerosol inhaler Mesalamine Yes mesalamine [facility] 0.375 g 07-08 ER 0.375 [place] CP24 12:00: gram of 32 capsule,ex Medicin tended e release 24 hr hydrochloro Yes 25mg Take 25 mg [facility] thiazide 07-08 by mouth. Colleg e (HYDRODIURI 12:00: of L) 25 MG 32 Medicin tablet e diclofenac Yes diclofenac [facility] (VOLTAREN) 07-08 sodium 75 An ege 75 MG EC 12:00: mg of tablet 32 tablet,del Medicin ayed e release TAKE 1 TABLET BY MOUTH TWICE DAILY WITH MEALS cyclobenzap Yes cyclobenza [facility] rine 07-08 wiley 10 [place] (FLEXERIL) 12:00: mg tablet of 10 MG 32 TAKE 1 Medicin tablet TABLET BY e MOUTH EVERY NIGHT AT BEDTIME NEEDED FOR MUSCLE SPASM OR EAR PAIN clonidine Yes clonidine [facility] (CATAPRESS) 07-08 HCl 0.2 mg Co llege 0.2 MG 12:00: tablet of tablet 32 TAKE 1 Medicin TABLET BY e MOUTH THREE TIMES DAILY atorvastati Yes atorvastat [facility] (LIPITOR) 07-08 in 20 mg An ege 20 MG 12:00: tablet of tablet 32 TAKE 1 Medicin TABLET BY e MOUTH EVERY DAY amlodipine Yes 10mg Take 10 mg [facility] (NORVASC) 907 by mouth. Colle ge 10 MG 12:00: of tablet 32 Medicin e alprazolam Yes 2mg Take 2 mg [facility] (XANAX) 07 by mouth. College 0.25 MG 12:00: of tablet 32 Medicin e allopurinol Yes 100mg Take 100 [facility] (ZYLOPRIM) 9-07 mg by [place] 100 MG 12:00: mouth. of tablet 32 Medicin e Fluticasone Yes Trelegy [facility] -Umeclidin- 07-08 [facility] 12:00: 100 of (TRELEGY 32 mcg-62.5 Medicin ELLIPTA) mcg-25 mcg e 100-62.5-25 powder for MCG/INH inhalation AEPB INHALE 1 PUFF BY MOUTH EVERY DAY HYDRALAZINE 0 Yes [id number] TAKE 1 [facility] 100 mg 9-06 TABLET BY ity of tablet 00:00: MOUTH [place] 00 THREE Medical TIMES Branch DAILY HYDRALAZINE 2021-0 Yes [id number] TAKE 1 [facility] 100 mg 9-06 TABLET BY ity of tablet 00:00: MOUTH [place] 00 THREE Medical TIMES Branch DAILY HYDRALAZINE 2021-0 Yes [id number] TAKE 1 [facility] 100 mg 9-06 TABLET BY ity of tablet 00:00: MOUTH [place] 00 THREE Medical TIMES Branch DAILY HYDRALAZINE 2021-0 Yes [id number] TAKE 1 [facility] 100 mg 9-06 TABLET BY ity of tablet 00:00: MOUTH [place] 00 THREE Medical TIMES Branch DAILY HYDRALAZINE 2021-0 Yes [id number] TAKE 1 [facility] 100 mg 9-06 TABLET BY ity of tablet 00:00: MOUTH [place] 00 THREE Medical TIMES Branch DAILY HYDRALAZINE 2021-0 Yes [id number] TAKE 1 [facility] 100 mg 9-06 TABLET BY ity of tablet 00:00: MOUTH [place] 00 THREE Medical TIMES Branch DAILY HYDRALAZINE 2021-0 2021- No [id number] TAKE 1 [facility] 100 mg 9-06 10-05 TABLET BY ity of tablet 00:00: 00:00 MOUTH [place] 00 :00 THREE Medical TIMES Branch DAILY GABAPENTIN 2021-0 Yes [id number] TAKE 1 [facility] 600 mg 8-31 TABLET BY ity of tablet 00:00: MOUTH [place] 00 THREE Medical TIMES Branch DAILY GABAPENTIN 2021-0 Yes [id number] TAKE 1 [facility] 600 mg 8-31 TABLET BY ity of tablet 00:00: MOUTH [place] 00 THREE Medical TIMES Branch DAILY GABAPENTIN 2021-0 Yes [id number] TAKE 1 [facility] 600 mg 8-31 TABLET BY ity of tablet 00:00: MOUTH [place] 00 THREE Medical TIMES Branch DAILY GABAPENTIN 2021-0 Yes [id number] TAKE 1 [facility] 600 mg 8-31 TABLET BY ity of tablet 00:00: MOUTH [place] 00 THREE Medical TIMES Branch DAILY GABAPENTIN 2021-0 2021- No [id number] TAKE 1 [facility] 600 mg 8-31 - TABLET BY ity of tablet 00:00: 00:00 MOUTH [place] 00 :00 THREE Medical TIMES Branch DAILY metoprolol 2021-0 Yes [id number] TAKE 1 [facility] (LOPRESSOR) 8-22 TABLET BY Col lege 100 MG 00:00: MOUTH of tablet 00 TWICE Medicin DAILY e metoprolol 0 Yes [id number] TAKE 1 [facility] (LOPRESSOR) 8-22 TABLET BY Col lege 100 MG 00:00: MOUTH of tablet 00 TWICE Medicin DAILY e metoprolol 0 Yes [id number] TAKE 1 [facility] (LOPRESSOR) 8-22 TABLET BY Col lege 100 MG 00:00: MOUTH of tablet 00 TWICE Medicin DAILY e METOPROLOL Yes TAKE 1 Unive rs TARTRATE [...] 00 TWICE Medical DAILY Branch METOPROLOL 0 2022- No TAKE 1 Univ ers TARTRATE 8-22 11-03 TABLET BY ity o f 100 mg 00:00: 00:00 MOUTH [place] tablet 00 :00 TWICE Medical DAILY Branch BD PEN Yes [id number] USE [facility] NEEDLE DEVORAH 8-17 DIRECTED An ege 2ND GEN 32G 00:00: EVERY DAY o f X 4 MM MISC 00 Medicin e alprazolam Yes [id number] TAKE 1 [facility] (XANAX) 2 8-17 TABLET BY Colle ge MG tablet 00:00: MOUTH of 00 THREE Medicin TIMES e DAILY NEEDED FOR ANXIETY BD PEN 0 Yes [id number] USE [facility] NEEDLE DEVORAH 8-17 DIRECTED An ege 2ND GEN 32G 00:00: EVERY DAY o f X 4 MM MISC 00 Medicin e alprazolam Yes [id number] TAKE 1 [facility] (XANAX) 2 8-17 TABLET BY Colle ge MG tablet 00:00: MOUTH of 00 THREE Medicin TIMES e DAILY NEEDED FOR ANXIETY BD PEN Yes [id number] USE [facility] NEEDLE DEVORAH 8-17 DIRECTED An ege 2ND GEN 32G 00:00: EVERY DAY o f X 4 MM MISC 00 Medicin e alprazolam Yes [id number] TAKE 1 [facility] (XANAX) 2 8-17 TABLET BY Colle ge MG tablet 00:00: MOUTH of 00 THREE Medicin TIMES e DAILY NEEDED FOR ANXIETY albuterol Yes albuterol [facility] (PROVENTIL) 8-16 sulfate Colle ge (2.5 mg/3 08:03: 2.5 mg/3 of mL) 0.083% 35 mL (0.083 Medi patsy nebulizer %) e solution solution for nebulizati on Insulin Yes Inject [facility] Aspart Prot 8-16 into the An ege & Aspart 08:03: skin. of (70-30) 100 35 Medicin UNIT/ML e SUPN mirtazapine Yes 15mg Take 15 mg [facility] (REMERON) 8-16 by mouth. Colle ge 15 MG 08:03: of tablet 35 Medicin e metoprolol Yes 100mg Take 100 [facility] (TOPROL-XL) 8-16 mg by [place] 100 MG XL 08:03: mouth. of tablet 35 Medicin e pantoprazol Yes 20mg Take 20 mg [facility] e 8-16 by mouth [place] (PROTONIX) 08:00: daily. of 20 MG 33 [...] [facility] -acetaminop 8-09 TABLET BY Col leglacho kent (Infakt.plID) 00:00: MOUTH of 7.5-325 MG 00 EVERY 6 Medici n per tablet HOURS e NEEDED FOR PAIN OR CHRONIC PAIN lisinopril Yes TAKE 1/2 [facility] (PRINIVIL, 8-08 TABLET BY An ege ZESTRIL) 40 00:00: MOUTH of MG tablet 00 TWICE Medicin DAILY e hydrALAZINE Yes TAKE 1 [facility] (APRESOLINE 8-08 TABLET BY Col lege ) 100 MG 00:00: MOUTH of tablet 00 THREE Medicin TIMES e DAILY lisinopril 0 Yes TAKE 1/2 [facility] (PRINIVIL, 8-08 TABLET BY An ege ZESTRIL) 40 00:00: MOUTH of MG tablet 00 TWICE Medicin DAILY e hydrALAZINE 2021-0 Yes TAKE 1 [facility] (APRESOLINE 8-08 TABLET BY Col lege ) 100 MG 00:00: MOUTH of tablet 00 THREE Medicin TIMES e DAILY lisinopril 0 Yes TAKE 1/2 [facility] (PRINIVIL, 8-08 TABLET BY An ege ZESTRIL) 40 00:00: MOUTH of MG tablet 00 TWICE Medicin DAILY e hydrALAZINE 0 Yes TAKE 1 [facility] (APRESOLINE 8-08 TABLET BY Col lege ) 100 MG 00:00: MOUTH of tablet 00 THREE Medicin TIMES e DAILY lisinopril 2021- Yes TAKE 1/2 [facility] (PRINIVIL, 8-08 TABLET BY An SMITH) 40 00:00: MOUTH of MG tablet 00 TWICE Medicin DAILY e LISINOPRIL 2021-0 Yes [id number] TAKE 1/2 [facility] 40 mg 8-08 TABLET [...] Indication s: chronic pain LISINOPRIL 2021-0 Yes [id number] TAKE 1/2 [facility] 40 mg 8-08 TABLET BY ity of tablet 00:00: MOUTH [place] 00 TWICE Medical DAILY Branch HYDROcodone 2021-0 Yes [id number] 1{tbl} Take 1 Un ally -acetaminop 8-08 tablet by ity of hen 7.5-325 00:00: mouth [place] mg per 00 every 6 Medical tablet (six) Branch hours as needed for Pain. Indication s: chronic pain LISINOPRIL 2-0 Yes [id number] TAKE 1/2 [facility] 40 mg 8-08 TABLET BY ity of tablet 00:00: MOUTH [place] 00 TWICE Medical DAILY Branch HYDROcodone 2021-0 Yes [id number] 1{tbl} Take 1 [facility] ally -acetaminop 8-08 tablet by ity of hen 7.5-325 00:00: mouth [place] mg per 00 every 6 Medical tablet (six) Branch hours as needed for Pain. Indication s: chronic pain LISINOPRIL 2-0 Yes [id number] TAKE 1/2 [facility] 40 mg 8-08 TABLET BY ity of tablet 00:00: MOUTH [place] 00 TWICE Medical DAILY Branch LISINOPRIL 2022-0 Yes [id number] TAKE 1/2 [facility] 40 mg 8-08 TABLET BY ity of tablet 00:00: MOUTH 00 TWICE Medical DAILY Branch LISINOPRIL 2022-0 Yes [id number] TAKE 1/2 [facility] 40 mg 8-08 TABLET BY ity of tablet 00:00: MOUTH TWICE Medical DAILY Branch LISINOPRIL 2022-0 Yes [id number] TAKE 1/2 [facility] 40 mg 8-08 TABLET BY ity of tablet 00:00: MOUTH TWICE Medical DAILY Branch LISINOPRIL 2022-0 Yes [id number] TAKE 1/2 [facility] 40 mg 8-08 TABLET BY ity of tablet 00:00: MOUTH TWICE Medical DAILY Branch LISINOPRIL 2022-0 Yes [id number] TAKE 1/2 [facility] 40 mg 8-08 TABLET BY ity of tablet 00:00: MOUTH TWICE Medical DAILY Branch LISINOPRIL 2022-0 Yes [id number] TAKE 1/2 [facility] 40 mg 8-08 TABLET BY ity of tablet 00:00: MOUTH TWICE Medical DAILY Branch LISINOPRIL 2022-0 Yes [id number] TAKE 1/2 [facility] 40 mg 8-08 TABLET BY ity of tablet 00:00: MOUTH TWICE Medical DAILY Branch LISINOPRIL 2022-0 Yes [id number] TAKE 1/2 [facility] 40 mg 8-08 TABLET BY ity of tablet 00:00: MOUTH TWICE Medical DAILY Branch LISINOPRIL 2022-0 Yes [id number] TAKE 1/2 [facility] 40 mg 8-08 TABLET BY ity of tablet 00:00: MOUTH TWICE Medical DAILY Branch LISINOPRIL 2022-0 Yes [id number] TAKE 1/2 [facility] 40 mg 8-08 TABLET BY ity of tablet 00:00: MOUTH TWICE Medical DAILY Branch LISINOPRIL 2022-0 Yes [id number] TAKE 1/2 [facility] 40 mg 8-08 TABLET BY ity of tablet 00:00: MOUTH TWICE Medical DAILY Branch LISINOPRIL 2022-0 Yes [id number] TAKE 1/2 [facility] 40 mg 8-08 TABLET BY ity of tablet 00:00: MOUTH TWICE Medical DAILY Branch LISINOPRIL 2022-0 Yes [id number] TAKE 1/2 [facility] 40 mg 8-08 TABLET BY ity of tablet 00:00: MOUTH TWICE Medical DAILY Branch LISINOPRIL 2022-0 Yes [id number] TAKE 1/2 [facility] 40 mg 8-08 TABLET BY ity of tablet 00:00: MOUTH [place] 00 TWICE Medical DAILY Branch LISINOPRIL Yes [id number] TAKE 1/2 [facility] 40 mg 8-08 TABLET BY ity of tablet 00:00: MOUTH [place] 00 TWICE Medical DAILY Branch LISINOPRIL 0 Yes [id number] TAKE 1/2 [facility] 40 mg 8-08 TABLET BY ity of tablet 00:00: MOUTH 00 TWICE Medical DAILY Branch LISINOPRIL 0 2021- No [id number] TAKE 1/2 [facility] 40 mg 8-08 - TABLET BY ity of tablet 00:00: 00:00 MOUTH [place] 00 :00 TWICE Medical DAILY Branch HYDROcodone 2021- No [id number] 1{tbl} Take 1 U nivers -acetaminop 807-09 tablet by it y of hen 7.5-325 00:00: 00:00 mouth [place] mg per 00 :00 every 6 Medical tablet (six) Branch hours as needed for Pain. Indication s: chronic pain HUMULIN Yes ADMINISTER [facility] 70/30 8- 70 UNITS College (70-30) 100 00:00: UNDER THE o f UNIT/ML 00 SKIN EVERY Medici n injection MORNING e THEN ADMINISTER 60 UNITS UNDER THE SKIN EVERY EVENING HUMULIN Yes ADMINISTER [facility] 70/30 8- 70 UNITS College (70-30) 100 00:00: UNDER THE o f UNIT/ML 00 SKIN EVERY Medici n injection MORNING e THEN ADMINISTER 60 UNITS UNDER THE SKIN EVERY EVENING HUMULIN Yes ADMINISTER [facility] 70/30 8- 70 UNITS College (70-30) 100 00:00: UNDER [...] tablet 00 THREE Medicin TIMES e DAILY HUMULIN Yes [id number] ADMINISTER [facility] 70/30 U-100 8-03 70 UNITS ity of INSULIN 100 00:00: UNDER THE [place] unit/mL 00 SKIN EVERY Medica l (70-30) MORNING Branch suspension THEN ADMINISTER 60 UNITS UNDER THE SKIN EVERY EVENING HUMULIN Yes [id number] ADMINISTER [facility] 70/30 U-100 8-03 70 UNITS ity of INSULIN 100 00:00: UNDER THE [place] unit/mL 00 SKIN EVERY Medica l (70-30) MORNING Branch suspension THEN ADMINISTER 60 UNITS UNDER THE SKIN EVERY EVENING GABAPENTIN Yes [id number] TAKE 1 [facility] 600 mg 8-03 TABLET BY ity of tablet 00:00: MOUTH [place] Medical TIMES Branch DAILY HUMULIN Yes [id number] ADMINISTER [facility] 70/30 U-100 8-03 70 UNITS ity of INSULIN 100 00:00: UNDER THE [place] unit/mL 00 SKIN EVERY Medica l (70-30) MORNING Branch suspension THEN ADMINISTER 60 UNITS UNDER THE SKIN EVERY EVENING GABAPENTIN Yes [id number] TAKE 1 [facility] 600 mg 8-03 TABLET BY ity of tablet 00:00: MOUTH Medical TIMES Branch DAILY HUMULIN Yes [id number] ADMINISTER [facility] 70/30 U-100 8-03 70 UNITS ity of INSULIN 100 00:00: UNDER THE [place] unit/mL 00 SKIN EVERY Medica l (70-30) MORNING Branch suspension THEN ADMINISTER 60 UNITS UNDER THE SKIN EVERY EVENING GABAPENTIN Yes [id number] TAKE 1 [facility] 600 mg 8-03 TABLET BY ity of tablet 00:00: MOUTH [place] Medical TIMES Branch DAILY HUMULIN Yes [id number] ADMINISTER [facility] 70/30 U-100 8-03 70 UNITS ity of INSULIN 100 00:00: UNDER THE [place] unit/mL 00 SKIN EVERY Medica l (70-30) MORNING Branch suspension THEN ADMINISTER 60 UNITS UNDER THE SKIN EVERY EVENING GABAPENTIN Yes [id number] TAKE 1 [facility] 600 mg 8 TABLET BY ity of tablet 00:00: MOUTH [place] 00 THREE Medical TIMES Branch DAILY HUMULIN Yes [id number] ADMINISTER [facility] 70/30 U-100 8-03 70 UNITS ity of INSULIN 100 00:00: UNDER THE [place] unit/mL 00 SKIN EVERY Medica l (70-30) MORNING Branch suspension THEN ADMINISTER 60 UNITS UNDER THE SKIN EVERY EVENING HUMULIN Yes [id number] ADMINISTER [facility] 70/30 U-100 8-03 70 UNITS ity of INSULIN 100 00:00: UNDER THE [place] unit/mL 00 SKIN EVERY Medica l (70-30) MORNING Branch suspension THEN ADMINISTER 60 UNITS UNDER THE SKIN EVERY EVENING HUMULIN Yes [id number] ADMINISTER [facility] 70/30 U-100 8-03 70 UNITS ity of INSULIN 100 00:00: UNDER THE [place] unit/mL 00 SKIN EVERY Medica l (70-30) MORNING Branch suspension THEN ADMINISTER 60 UNITS UNDER THE SKIN EVERY EVENING HUMULIN Yes [id number] ADMINISTER [facility] 70/30 U-100 8-03 70 UNITS ity of INSULIN 100 00:00: UNDER THE [place] unit/mL 00 SKIN EVERY Medica l (70-30) MORNING Branch suspension THEN ADMINISTER 60 UNITS UNDER THE SKIN EVERY EVENING HUMULIN Yes [id number] ADMINISTER [facility] 70/30 U-100 8-03 70 UNITS ity of INSULIN 100 00:00: UNDER THE [place] unit/mL 00 SKIN EVERY Medica l (70-30) MORNING Branch suspension THEN ADMINISTER 60 UNITS UNDER THE SKIN EVERY EVENING HUMULIN Yes [id number] ADMINISTER [facility] 70/30 U-100 8-03 70 UNITS ity of INSULIN 100 00:00: UNDER THE [place] unit/mL 00 SKIN EVERY Medica l (70-30) MORNING Branch suspension THEN ADMINISTER 60 UNITS UNDER THE SKIN EVERY EVENING HUMULIN Yes [id number] ADMINISTER [facility] 70/30 U-100 8-03 70 UNITS ity of INSULIN 100 00:00: UNDER THE [place] unit/mL 00 SKIN EVERY Medica l (70-30) MORNING Branch suspension THEN ADMINISTER 60 UNITS UNDER THE SKIN EVERY EVENING HUMULIN Yes [id number] ADMINISTER [facility] 70/30 U-100 8-03 70 UNITS ity of INSULIN 100 00:00: UNDER THE [place] unit/mL 00 SKIN EVERY Medica l (70-30) MORNING Branch suspension THEN ADMINISTER 60 UNITS UNDER THE SKIN EVERY EVENING HUMULIN Yes [id number] ADMINISTER [facility] 70/30 U-100 8-03 70 UNITS ity of INSULIN 100 00:00: UNDER THE [place] unit/mL 00 SKIN EVERY Medica l (70-30) MORNING Branch suspension THEN ADMINISTER 60 UNITS UNDER THE SKIN EVERY EVENING HUMULIN Yes [id number] ADMINISTER [facility] 70/30 U-100 8-03 70 UNITS ity of INSULIN 100 00:00: UNDER THE [place] unit/mL 00 SKIN EVERY Medica l (70-30) MORNING Branch suspension THEN ADMINISTER 60 UNITS UNDER THE SKIN EVERY EVENING HUMULIN Yes [id number] ADMINISTER [facility] 70/30 U-100 8-03 70 UNITS ity of INSULIN 100 00:00: UNDER THE [place] unit/mL 00 SKIN EVERY Medica l (70-30) MORNING Branch suspension THEN ADMINISTER 60 UNITS UNDER THE SKIN EVERY EVENING HUMULIN Yes [id number] ADMINISTER [facility] 70/30 U-100 8-03 70 UNITS ity of INSULIN 100 00:00: UNDER THE [place] unit/mL 00 SKIN EVERY Medica l (70-30) MORNING Branch suspension THEN ADMINISTER 60 UNITS UNDER THE SKIN EVERY EVENING HUMULIN Yes [id number] ADMINISTER [facility] 70/30 U-100 8-03 70 UNITS ity of INSULIN 100 00:00: UNDER THE [place] unit/mL 00 SKIN EVERY Medica l (70-30) MORNING Branch suspension THEN ADMINISTER 60 UNITS UNDER THE SKIN EVERY EVENING HUMULIN Yes [id number] ADMINISTER [facility] 70/30 U-100 8-03 70 UNITS ity of INSULIN 100 00:00: UNDER THE [place] unit/mL 00 SKIN EVERY Medica l (70-30) MORNING Branch suspension THEN ADMINISTER 60 UNITS UNDER THE SKIN EVERY EVENING HUMULIN Yes [id number] ADMINISTER [facility] 70/30 U-100 8-03 70 UNITS ity of INSULIN 100 00:00: UNDER THE [place] unit/mL 00 SKIN EVERY Medica l (70-30) MORNING Branch suspension THEN ADMINISTER 60 UNITS UNDER THE SKIN EVERY EVENING HUMULIN Yes [id number] ADMINISTER [facility] 70/30 U-100 8-03 70 UNITS ity of INSULIN 100 00:00: UNDER THE [place] unit/mL 00 SKIN EVERY Medica l (70-30) MORNING Branch suspension THEN ADMINISTER 60 UNITS UNDER THE SKIN EVERY EVENING HUMULIN Yes [id number] ADMINISTER [facility] 70/30 U-100 8-03 70 UNITS ity of INSULIN 100 00:00: UNDER THE [place] unit/mL 00 SKIN EVERY Medica l (70-30) MORNING Branch suspension THEN ADMINISTER 60 UNITS UNDER THE SKIN EVERY EVENING HUMULIN Yes [id number] ADMINISTER [facility] 70/30 U-100 8-03 70 UNITS ity of INSULIN 100 00:00: UNDER THE [place] unit/mL 00 SKIN EVERY Medica l (70-30) MORNING Branch suspension THEN ADMINISTER 60 UNITS UNDER THE SKIN EVERY EVENING HUMULIN Yes [id number] ADMINISTER [facility] 70/30 U-100 8-03 70 UNITS ity of INSULIN 100 00:00: UNDER THE [place] unit/mL 00 SKIN EVERY Medica l (70-30) MORNING Branch suspension THEN ADMINISTER 60 UNITS UNDER THE SKIN EVERY EVENING HUMULIN Yes [id number] ADMINISTER [facility] 70/30 U-100 8-03 70 UNITS ity of INSULIN 100 00:00: UNDER THE [place] unit/mL 00 SKIN EVERY Medica l (70-30) MORNING Branch suspension THEN ADMINISTER 60 UNITS UNDER THE SKIN EVERY EVENING HUMULIN Yes [id number] ADMINISTER [facility] 70/30 U-100 8-03 70 UNITS ity of INSULIN 100 00:00: UNDER THE [place] unit/mL 00 SKIN EVERY Medica l (70-30) MORNING Branch suspension THEN ADMINISTER 60 UNITS UNDER THE SKIN EVERY EVENING HUMULIN Yes [id number] ADMINISTER [facility] 70/30 U-100 8-03 70 UNITS ity of INSULIN 100 00:00: UNDER THE [place] unit/mL 00 SKIN EVERY Medica l (70-30) MORNING Branch suspension THEN ADMINISTER 60 UNITS UNDER THE SKIN EVERY EVENING HUMULIN Yes [id number] ADMINISTER [facility] 70/30 U-100 8-03 70 UNITS ity of INSULIN 100 00:00: UNDER THE [place] unit/mL 00 SKIN EVERY Medica l (70-30) MORNING Branch suspension THEN ADMINISTER 60 UNITS UNDER THE SKIN EVERY EVENING HUMULIN Yes [id number] ADMINISTER [facility] 70/30 U-100 8-03 70 UNITS ity of INSULIN 100 00:00: UNDER THE [place] unit/mL 00 SKIN EVERY Medica l (70-30) MORNING Branch suspension THEN ADMINISTER 60 UNITS UNDER THE SKIN EVERY EVENING HUMULIN Yes [id number] ADMINISTER [facility] 70/30 U-100 8-03 70 UNITS ity of INSULIN 100 00:00: UNDER THE [place] unit/mL 00 SKIN EVERY Medica l (70-30) MORNING Branch suspension THEN ADMINISTER 60 UNITS UNDER THE SKIN EVERY EVENING HUMULIN Yes [id number] ADMINISTER [facility] 70/30 U-100 8-03 70 UNITS ity of INSULIN 100 00:00: UNDER THE [place] unit/mL 00 SKIN EVERY Medica l (70-30) MORNING Branch suspension THEN ADMINISTER 60 UNITS UNDER THE SKIN EVERY EVENING HUMULIN Yes [id number] ADMINISTER [facility] 70/30 U-100 8- 70 UNITS ity of INSULIN 100 00:00: UNDER THE [place] unit/mL 00 SKIN EVERY Medica l (70-30) MORNING Branch suspension THEN ADMINISTER 60 UNITS UNDER THE SKIN EVERY EVENING HUMULIN Yes [id number] ADMINISTER [facility] 70/30 U-100 8- 70 UNITS ity of INSULIN 100 00:00: UNDER THE [place] unit/mL 00 SKIN EVERY Medica l (70-30) MORNING Branch suspension THEN ADMINISTER 60 UNITS UNDER THE SKIN EVERY EVENING HUMULIN Yes [id number] ADMINISTER [facility] 70/30 U-100 8- 70 UNITS ity of INSULIN 100 00:00: UNDER [facility] [place] unit/mL 00 SKIN EVERY Medica l (70-30) MORNING Branch suspension THEN ADMINISTER 60 UNITS UNDER THE SKIN EVERY EVENING HUMULIN Yes [id number] ADMINISTER [facility] 70/30 U-100 8-03 70 UNITS ity of INSULIN 100 00:00: UNDER THE [place] unit/mL 00 SKIN EVERY Medica l (70-30) MORNING Branch suspension THEN ADMINISTER 60 UNITS UNDER THE SKIN EVERY EVENING HUMULIN Yes [id number] ADMINISTER [facility] 70/30 U-100 8-03 70 UNITS ity of INSULIN 100 00:00: UNDER THE [place] unit/mL 00 SKIN EVERY Medica l (70-30) MORNING Branch suspension THEN ADMINISTER 60 UNITS UNDER THE SKIN EVERY EVENING HUMULIN Yes [id number] ADMINISTER [facility] 70/30 U-100 8-03 70 UNITS ity of INSULIN 100 00:00: UNDER THE [place] unit/mL 00 SKIN EVERY Medica l (70-30) MORNING Branch suspension THEN ADMINISTER 60 UNITS UNDER THE SKIN EVERY EVENING HUMULIN Yes [id number] ADMINISTER [facility] 70/30 U-100 8-03 70 UNITS ity of INSULIN 100 00:00: UNDER THE [place] unit/mL 00 SKIN EVERY Medica l (70-30) MORNING Branch suspension THEN ADMINISTER 60 UNITS UNDER THE SKIN EVERY EVENING HUMULIN Yes [id number] ADMINISTER [facility] 70/30 U-100 8- 70 UNITS ity of INSULIN 100 00:00: UNDER THE [place] unit/mL 00 SKIN EVERY Medica l (70-30) MORNING Branch suspension THEN ADMINISTER 60 UNITS UNDER THE SKIN EVERY EVENING HUMULIN Yes [id number] ADMINISTER [facility] 70/30 U-100 8 70 UNITS ity of INSULIN 100 00:00: UNDER THE [place] unit/mL 00 SKIN EVERY Medica l (70-30) MORNING Branch suspension THEN ADMINISTER 60 UNITS UNDER THE SKIN EVERY EVENING HUMULIN Yes [id number] ADMINISTER [facility] 70/30 U-100 8 70 UNITS ity of INSULIN 100 00:00: UNDER THE [place] unit/mL 00 SKIN EVERY Medica l (70-30) MORNING Branch suspension THEN ADMINISTER 60 UNITS UNDER THE SKIN EVERY EVENING HUMULIN Yes [id number] ADMINISTER [facility] 70/30 U-100 8 70 UNITS ity of INSULIN 100 00:00: UNDER THE [place] unit/mL 00 SKIN EVERY Medica l (70-30) MORNING Branch suspension THEN ADMINISTER 60 UNITS UNDER THE SKIN EVERY EVENING HUMULIN Yes [id number] ADMINISTER [facility] 70/30 U-100 8- 70 UNITS ity of INSULIN 100 00:00: UNDER THE [place] unit/mL 00 SKIN EVERY Medica l (70-30) MORNING Branch suspension THEN ADMINISTER 60 UNITS UNDER THE SKIN EVERY EVENING HUMULIN Yes [id number] ADMINISTER [facility] 70/30 U-100 8-03 70 UNITS ity of INSULIN 100 00:00: UNDER THE [place] unit/mL 00 SKIN EVERY Medica l (70-30) MORNING Branch suspension THEN ADMINISTER 60 UNITS UNDER THE SKIN EVERY EVENING GABAPENTIN 2021- No [id number] TAKE 1 [facility] 600 mg 06-03 TABLET BY ity of tablet 00:00: 00:00 MOUTH [place] 00 :00 THREE Medical TIMES Branch DAILY HYDROCHLORO 2022-0 Yes [id number] 12.5mg TAKE 1 [facility] THIAZIDE 7-18 CAPSULE BY ity o f 12.5 mg 00:00: MOUTH [place] capsule 00 DAILY Medical Branch HYDROCHLORO 2022-0 Yes [id number] 12.5mg TAKE 1 [facility] THIAZIDE 7-18 CAPSULE BY ity o f 12.5 mg 00:00: MOUTH [place] capsule 00 DAILY Medical Branch HYDROCHLORO 2022-0 Yes [id number] 12.5mg TAKE 1 [facility] THIAZIDE 7-18 CAPSULE BY ity o f 12.5 mg 00:00: MOUTH [place] capsule 00 DAILY Medical Branch HYDROCHLORO 2022-0 Yes [id number] 12.5mg TAKE 1 [facility] THIAZIDE 7-18 CAPSULE BY ity o f 12.5 mg 00:00: MOUTH [place] capsule 00 DAILY Medical Branch HYDROCHLORO 2022-0 Yes [id number] 12.5mg TAKE 1 [facility] THIAZIDE 7-18 CAPSULE BY ity o f 12.5 mg 00:00: MOUTH [place] capsule 00 DAILY Medical Branch HYDROCHLORO 2022-0 Yes [id number] 12.5mg TAKE 1 [facility] THIAZIDE 7-18 CAPSULE BY ity o f 12.5 mg 00:00: MOUTH [place] capsule 00 DAILY Medical Branch HYDROCHLORO 2022-0 Yes [id number] 12.5mg TAKE 1 [facility] THIAZIDE 7-18 CAPSULE BY ity o f 12.5 mg 00:00: MOUTH [place] capsule 00 DAILY Medical Branch HYDROCHLORO 2022-0 Yes [id number] 12.5mg TAKE 1 [facility] THIAZIDE 7-18 CAPSULE BY ity o f 12.5 mg 00:00: MOUTH [place] capsule 00 DAILY Medical Branch HYDROCHLORO 2022-0 Yes [id number] 12.5mg TAKE 1 [facility] THIAZIDE 7-18 CAPSULE BY ity o f 12.5 mg 00:00: MOUTH [place] capsule 00 DAILY Medical Branch HYDROCHLORO 2022-0 Yes [id number] 12.5mg TAKE 1 [facility] THIAZIDE 7-18 CAPSULE BY ity o f 12.5 mg 00:00: MOUTH [place] capsule 00 DAILY Medical Branch HYDROCHLORO 2022-0 Yes [id number] 12.5mg TAKE 1 [facility] THIAZIDE 7-18 CAPSULE BY ity o f 12.5 mg 00:00: MOUTH [place] capsule 00 DAILY Medical Branch HYDROCHLORO 2022-0 Yes [id number] 12.5mg TAKE 1 [facility] THIAZIDE 7-18 CAPSULE BY ity o f 12.5 mg 00:00: MOUTH [place] capsule 00 DAILY Medical Branch HYDROCHLORO 2022-0 Yes [id number] 12.5mg TAKE 1 [facility] THIAZIDE 7-18 CAPSULE BY ity o f 12.5 mg 00:00: MOUTH [place] capsule 00 DAILY Medical Branch HYDROCHLORO 2022-0 Yes [id number] 12.5mg TAKE 1 [facility] THIAZIDE 7-18 CAPSULE BY ity o f 12.5 mg 00:00: MOUTH [place] capsule 00 DAILY Medical Branch HYDROCHLORO 2022-0 Yes [id number] 12.5mg TAKE 1 [facility] THIAZIDE 7-18 CAPSULE BY ity o f 12.5 mg 00:00: MOUTH [place] capsule 00 DAILY Medical Branch HYDROCHLORO 2022-0 Yes [id number] 12.5mg TAKE 1 [facility] THIAZIDE 7-18 CAPSULE BY ity o f 12.5 mg 00:00: MOUTH [place] capsule 00 DAILY Medical Branch HYDROCHLORO 2022-0 Yes [id number] 12.5mg TAKE 1 [facility] THIAZIDE 7-18 CAPSULE BY ity o f 12.5 mg 00:00: MOUTH [place] capsule 00 DAILY Medical Branch HYDROCHLORO 2022-0 Yes [id number] 12.5mg TAKE 1 [facility] THIAZIDE 7-18 CAPSULE BY ity o f 12.5 mg 00:00: MOUTH [place] capsule 00 DAILY Medical Branch HYDROCHLORO 2022-0 Yes [id number] 12.5mg TAKE 1 [facility] THIAZIDE 7-18 CAPSULE BY ity o f 12.5 mg 00:00: MOUTH [place] capsule 00 DAILY Medical Branch HYDROCHLORO 2022-0 Yes [id number] 12.5mg TAKE 1 [facility] THIAZIDE 7-18 CAPSULE BY ity o f 12.5 mg 00:00: MOUTH [place] capsule 00 DAILY Medical Branch HYDROCHLORO 2022-0 Yes [id number] 12.5mg TAKE 1 [facility] THIAZIDE 7-18 CAPSULE BY ity o f 12.5 mg 00:00: MOUTH [place] capsule 00 DAILY Medical Branch HYDROCHLORO 2022-0 Yes [id number] 12.5mg TAKE 1 [facility] THIAZIDE 7-18 CAPSULE BY ity o f 12.5 mg 00:00: MOUTH [place] capsule 00 DAILY Medical Branch HYDROCHLORO 2022-0 Yes [id number] 12.5mg TAKE 1 [facility] THIAZIDE 7-18 CAPSULE BY ity o f 12.5 mg 00:00: MOUTH [place] capsule 00 DAILY Medical Branch HYDROCHLORO 2022-0 Yes [id number] 12.5mg TAKE 1 [facility] THIAZIDE 7-18 CAPSULE BY ity o f 12.5 mg 00:00: MOUTH [place] capsule 00 DAILY Medical Branch HYDROCHLORO 2022-0 Yes [id number] 12.5mg TAKE 1 [facility] THIAZIDE 7-18 CAPSULE BY ity o f 12.5 mg 00:00: MOUTH [place] capsule 00 DAILY Medical Branch HYDROCHLORO 2022-0 Yes [id number] 12.5mg TAKE 1 [facility] THIAZIDE 7-18 CAPSULE BY ity o f 12.5 mg 00:00: MOUTH [place] capsule 00 DAILY Medical Branch HYDROCHLORO 2022-0 Yes [id number] 12.5mg TAKE 1 [facility] THIAZIDE 7-18 CAPSULE BY ity o f 12.5 mg 00:00: MOUTH [place] capsule 00 DAILY Medical Branch HYDROCHLORO 2022-0 Yes [id number] 12.5mg TAKE 1 [facility] THIAZIDE 7-18 CAPSULE BY ity o f 12.5 mg 00:00: MOUTH [place] capsule 00 DAILY Medical Branch HYDROCHLORO 2022-0 Yes [id number] 12.5mg TAKE 1 [facility] THIAZIDE 7-18 CAPSULE BY ity o f 12.5 mg 00:00: MOUTH [place] capsule 00 DAILY Medical Branch HYDROCHLORO 2022-0 Yes [id number] 12.5mg TAKE 1 [facility] THIAZIDE 7-18 CAPSULE BY ity o f 12.5 mg 00:00: MOUTH [place] capsule 00 DAILY Medical Branch HYDROCHLORO 2022-0 Yes [id number] 12.5mg TAKE 1 [facility] THIAZIDE 7-18 CAPSULE BY ity o f 12.5 mg 00:00: MOUTH [place] capsule 00 DAILY Medical Branch HYDROCHLORO 2022-0 Yes [id number] 12.5mg TAKE 1 [facility] THIAZIDE 7-18 CAPSULE BY ity o f 12.5 mg 00:00: MOUTH [place] capsule 00 DAILY Medical Branch HYDROCHLORO 2022-0 Yes [id number] 12.5mg TAKE 1 [facility] THIAZIDE 7-18 CAPSULE BY ity o f 12.5 mg 00:00: MOUTH [place] capsule 00 DAILY Medical Branch HYDROCHLORO 2022-0 Yes [id number] 12.5mg TAKE 1 [facility] THIAZIDE 7-18 CAPSULE BY ity o f 12.5 mg 00:00: MOUTH [place] capsule 00 DAILY Medical Branch HYDROCHLORO 2022-0 Yes [id number] 12.5mg TAKE 1 [facility] THIAZIDE 7-18 CAPSULE BY ity o f 12.5 mg 00:00: MOUTH [place] capsule 00 DAILY Medical Branch HYDROCHLORO 0 Yes [id number] 12.5mg TAKE 1 [facility] THIAZIDE 7-18 CAPSULE BY ity o f 12.5 mg 00:00: MOUTH [place] capsule 00 DAILY Medical Branch HYDROCHLORO 0 Yes [id number] 12.5mg TAKE 1 [facility] THIAZIDE 7-18 CAPSULE BY ity o f 12.5 mg 00:00: MOUTH [place] capsule 00 DAILY Medical Branch HYDROCHLORO 0 2023- No [id number] 12.5mg TAKE 1 [facility] THIAZIDE 7-18 -09 CAPSULE BY ity of 12.5 mg 00:00: [...] of 00 EVERY 8 Medicin HOURS e colchicine Yes .6mg Take 0.6 [facility] 0.6 MG 7-11 mg by [facility] tablet 00:00: mouth of 00 daily. Medicin e colchicine 0 Yes .6mg Take 0.6 [facility] 0.6 MG 7-11 mg by [facility] tablet 00:00: mouth of 00 daily. Medicin e colchicine 0 Yes .6mg Take 0.6 [facility] 0.6 MG 7-11 mg by [facility] tablet 00:00: mouth of 00 daily. Medicin e HYDROcodone Yes [id number] 1{tbl} Take 1 [...] for Pain. Indication s: chronic pain HYDROcodone 2021-2021- No [id number] 1{tbl} Take 1 [facility] n[facility] -acetaminop 7-11 08-08 tablet by it y of hen 7.5-325 00:00: [place] per 00 :00 every 6 Medical tablet (six) Branch hours as needed for Pain. Indication s: chronic pain ondansetron 0 Yes DISSOLVE 1 [facility] (ZOFRAN-ODT 7-06 TABLET ON Col lege ) 4 mg 00:00: THE TONGUE of disintegrat 00 EVERY 12 Medi patsy ing tablet HOURS e NEEDED pantoprazol Yes 40mg Take 40 mg [facility] e 7-06 by mouth [facility] (PROTONIX) 00:00: daily. of 40 MG 00 Medicin tablet e ondansetron Yes DISSOLVE 1 [facility] (ZOFRAN-ODT 7-06 TABLET ON Col lege ) 4 mg 00:00: THE TONGUE of disintegrat 00 EVERY 12 Medi patsy ing tablet HOURS e NEEDED pantoprazol 2021-0 Yes 40mg Take 40 mg [facility] e 7-06 by mouth [place] (PROTONIX) 00:00: daily. of 40 MG 00 Medicin tablet e ondansetron 0 Yes DISSOLVE 1 [facility] (ZOFRAN-ODT 7-06 TABLET ON Col lege ) 4 mg 00:00: THE TONGUE of disintegrat 00 EVERY 12 Medi patsy ing tablet HOURS e NEEDED pantoprazol 0 Yes 40mg Take 40 mg [facility] e 7-06 by mouth [place] (PROTONIX) 00:00: daily. of 40 MG 00 Medicin tablet e ondansetron 0 Yes DISSOLVE 1 [facility] (ZOFRAN-ODT 7-06 TABLET ON Col lege ) 4 mg 00:00: THE [place]ONGUE of disintegrat 00 EVERY 12 Medi patsy ing tablet HOURS e NEEDED ofloxacin 0 Yes [facility] (OCUFLOX) 6-22 [place] 0.3 % 00:00: of Solution 00 Medicin e ofloxacin 0 Yes [facility] (OCUFLOX) 6-22 [place] 0.3 % 00:00: of Solution 00 Medicin e ofloxacin 0 Yes [facility] (OCUFLOX) 6-22 [place] 0.3 % 00:00: of Solution 00 Medicin e zolpidem 0 Yes TAKE 1 [facility] (AMBIEN) 10 6-20 TABLET BY Col lege MG tablet 00:00: MOUTH AT of 00 BEDTIME Medicin NEEDED FOR e INSOMNIA zolpidem 0 Yes TAKE 1 [facility] (AMBIEN) 10 6-20 TABLET BY Col lege MG tablet 00:00: MOUTH AT of 00 BEDTIME Medicin NEEDED FOR e INSOMNIA zolpidem 2021-0 Yes TAKE 1 [facility] (AMBIEN) 10 6-20 TABLET BY Col lege MG tablet 00:00: MOUTH AT of 00 BEDTIME Medicin NEEDED FOR e INSOMNIA zolpidem 2021-0 Yes TAKE 1 [facility] (AMBIEN) 10 6-20 TABLET BY Col lege MG tablet 00:00: MOUTH AT of 00 BEDTIME Medicin NEEDED FOR e INSOMNIA HYDROcodone 0 Yes [id number] 1{tbl} Take 1 [...] :00 (two) Medical times Branch daily. GABAPENTIN 2021-0 Yes [id number] TAKE 1 [facility] 600 mg 5-31 TABLET BY ity of tablet 00:00: MOUTH [place] 00 THREE Medical TIMES Branch DAILY GABAPENTIN 2022-0 Yes [id number] TAKE 1 [facility] 600 mg 5-31 TABLET BY ity of tablet 00:00: MOUTH THREE Medical TIMES Branch DAILY GABAPENTIN 2-0 Yes [id number] TAKE 1 [facility] 600 mg 5-31 TABLET BY ity of tablet 00:00: MOUTH THREE Medical TIMES Branch DAILY GABAPENTIN 2-0 Yes [id number] TAKE 1 [facility] 600 mg 5-31 TABLET BY ity of tablet 00:00: MOUTH THREE Medical TIMES Branch DAILY GABAPENTIN 2-0 Yes [id number] TAKE 1 [facility] 600 mg 5-31 TABLET BY ity of tablet 00:00: MOUTH THREE Medical TIMES Branch DAILY lubiproston 2021-0 2023- No TAKE 1 Uni vers e (AMITIZA) 5-31 03-14 CAPSULE BY i ty of 24 MCG 00:00: 00:00 MOUTH [place] capsule 00 :00 TWICE MD DAILY [facility] GABAPENTIN 2021-0 2021- No [id number] TAKE 1 [facility] 600 mg 5-31 08-03 TABLET BY ity of tablet 00:00: 00:00 MOUTH [place] 00 :00 THREE Medical TIMES Branch DAILY Insulin 2021-0 Yes [id number] Use as Uni vers Syringe-Nee 5-18 directed ity of dle U-100 1 00:00: [place] mL 31 x 00 Medical 3/8" Syrg Branch Insulin 2022-0 Yes [id number] Use as Uni vers Syringe-Nee 5-18 directed ity of dle U-100 1 00:00: [place] mL 31 x 00 Medical 3/8" Syrg Branch Insulin 2022-0 Yes [id number] Use as Uni vers Syringe-Nee 5-18 directed ity of dle U-100 1 00:00: [place] mL 31 x 00 Medical 3/8" Syrg Branch Insulin 2022-0 Yes [id number] Use as Uni vers Syringe-Nee 5-18 directed ity of dle U-100 1 00:00: [place] mL 31 x 00 Medical 3/8" Syrg Branch Insulin 2022-0 Yes [id number] Use as Uni vers Syringe-Nee 5-18 directed ity of dle U-100 1 00:00: [place] mL 31 x 00 Medical 3/8" Syrg Branch Insulin 2022-0 Yes [id number] Use as Uni vers Syringe-Nee 5-18 directed ity of dle U-100 1 00:00: [place] mL 31 x 00 Medical 3/8" Syrg Branch Insulin 2022-0 Yes [id number] Use as Uni vers Syringe-Nee 5-18 directed ity of dle U-100 1 00:00: [place] mL 31 x 00 Medical 3/8" Syrg Branch Insulin 2022-0 Yes [id number] Use as Uni vers Syringe-Nee 5-18 directed ity of dle U-100 1 00:00: [place] mL 31 x 00 Medical 3/8" Syrg Branch Insulin 2022-0 Yes [id number] Use as Uni vers Syringe-Nee 5-18 directed ity of dle U-100 1 00:00: [place] mL 31 x 00 Medical 3/8" Syrg Branch Insulin 2022-0 Yes [id number] Use as Uni vers Syringe-Nee 5-18 directed ity of dle U-100 1 00:00: [place] mL 31 x 00 Medical 3/8" Syrg Branch Insulin 2022-0 Yes [id number] Use as Uni vers Syringe-Nee 5-18 directed ity of dle U-100 1 00:00: [place] mL 31 x 00 Medical 3/8" Syrg Branch Insulin 2022-0 Yes [id number] Use as Uni vers Syringe-Nee 5-18 directed ity of dle U-100 1 00:00: [place] mL 31 x 00 Medical 3/8" Syrg Branch Insulin 2022-0 Yes [id number] Use as Uni vers Syringe-Nee 5-18 directed ity of dle U-100 1 00:00: [place] mL 31 x 00 Medical 3/8" Syrg Branch Insulin 2022-0 Yes [id number] Use as Uni vers Syringe-Nee 5-18 directed ity of dle U-100 1 00:00: [place] mL 31 x 00 Medical 3/8" Syrg Branch Insulin 2022-0 Yes [id number] Use as Uni vers Syringe-Nee 5-18 directed ity of dle U-100 1 00:00: [place] mL 31 x 00 Medical 3/8" Syrg Branch Insulin 2022-0 Yes [id number] Use as Uni vers Syringe-Nee 5-18 directed ity of dle U-100 1 00:00: [place] mL 31 x 00 Medical 3/8" Syrg Branch Insulin 2022-0 Yes [id number] Use as Uni vers Syringe-Nee 5-18 directed ity of dle U-100 1 00:00: [place] mL 31 x 00 Medical 3/8" Syrg Branch Insulin 2022-0 Yes [id number] Use as Uni vers Syringe-Nee 5-18 directed ity of dle U-100 1 00:00: [place] mL 31 x 00 Medical 3/8" Syrg Branch Insulin 2022-0 Yes [id number] Use as Uni vers Syringe-Nee 5-18 directed ity of dle U-100 1 00:00: [place] mL 31 x 00 Medical 3/8" Syrg Branch Insulin 2022-0 Yes [id number] Use as Uni vers Syringe-Nee 5-18 directed ity of dle U-100 1 00:00: [place] mL 31 x 00 Medical 3/8" Syrg Branch Insulin 2022-0 Yes [id number] Use as [facility] vers Syringe-Nee 5-18 directed ity of dle U-100 1 00:00: [place] mL 31 x 00 Medical 3/8" Syrg Branch Insulin 2022-0 Yes [id number] Use as Uni vers Syringe-Nee 5-18 directed ity of dle U-100 1 00:00: [place] mL 31 x 00 Medical 3/8" Syrg Branch Insulin 2022-0 Yes [id number] Use as Uni vers Syringe-Nee 5-18 directed ity of dle U-100 1 00:00: [place] mL 31 x 00 Medical 3/8" Syrg Branch Insulin 2022-0 Yes [id number] Use as Uni vers Syringe-Nee 5-18 directed ity of dle U-100 1 00:00: [place] mL 31 x 00 Medical 3/8" Syrg Branch Insulin 2022-0 Yes [id number] Use as [facility] vers Syringe-Nee 5-18 directed ity of dle U-100 1 00:00: [place] mL 31 x 00 Medical 3/8" Syrg Branch Insulin 2022-0 Yes [id number] Use as [facility] vers Syringe-Nee 5-18 directed ity of dle U-100 1 00:00: [place] mL 31 x 00 Medical 3/8" Syrg Branch Insulin 2022-0 Yes [id number] Use as [facility] vers Syringe-Nee 5-18 directed ity of dle U-100 1 00:00: [place] mL 31 x 00 Medical 3/8" Syrg Branch Insulin 2022-0 Yes [id number] Use as Uni vers Syringe-Nee 5-18 directed ity of dle U-100 1 00:00: [place] mL 31 x 00 Medical 3/8" Syrg Branch Insulin 2022-0 Yes [id number] Use as Uni vers Syringe-Nee 5-18 directed ity of dle U-100 1 00:00: [place] mL 31 x 00 Medical 3/8" Syrg Branch Insulin 2022-0 Yes [id number] Use as Uni vers Syringe-Nee 5-18 directed ity of dle U-100 1 00:00: [place] mL 31 x 00 Medical 3/8" Syrg Branch Insulin 2022-0 Yes [id number] Use as Uni vers Syringe-Nee 5-18 directed ity of dle U-100 1 00:00: [place] mL 31 x 00 Medical 3/8" Syrg Branch Insulin 2022-0 Yes [id number] Use as Uni vers Syringe-Nee 5-18 directed ity of dle U-100 1 00:00: [place] mL 31 x 00 Medical 3/8" Syrg Branch Insulin 2022-0 Yes [id number] Use as [facility] vers Syringe-Nee 5-18 directed ity of dle U-100 1 00:00: [place] mL 31 x 00 Medical 3/8" Syrg Branch Insulin 2022-0 Yes [id number] Use as [facility] vers Syringe-Nee 5-18 directed ity of dle U-100 1 00:00: [place] mL 31 x 00 Medical 3/8" Syrg Branch Insulin 2022-0 Yes [id number] Use as Uni vers Syringe-Nee 5-18 directed ity of dle U-100 1 00:00: [place] mL 31 x 00 Medical 3/8" Syrg Branch Insulin 2022-0 Yes [id number] Use as [facility] vers Syringe-Nee 5-18 directed ity of dle U-100 1 00:00: [place] mL 31 x 00 Medical 3/8" Syrg Branch Insulin 2022-0 Yes [id number] Use as Uni vers Syringe-Nee 5-18 directed ity of dle U-100 1 00:00: [place] mL 31 x 00 Medical 3/8" Syrg Branch Insulin 2022-0 Yes [id number] Use as [facility] vers Syringe-Nee 5-18 directed ity of dle U-100 1 00:00: [place] mL 31 x 00 Medical 3/8" Syrg Branch Insulin 2022-0 Yes [id number] Use as [facility] vers Syringe-Nee 5-18 directed ity of dle U-100 1 00:00: [place] mL 31 x 00 Medical 3/8" Syrg Branch Insulin 2022-0 Yes [id number] Use as [facility] vers Syringe-Nee 5-18 directed ity of dle U-100 1 00:00: [place] mL 31 x 00 Medical 3/8" Syrg Branch Insulin 2022-0 Yes [id number] Use as Uni vers Syringe-Nee 5-18 directed ity of dle U-100 1 00:00: [place] mL 31 x 00 Medical 3/8" Syrg Branch Insulin 2022-0 Yes [id number] Use as [facility] vers Syringe-Nee 5-18 directed ity of dle U-100 1 00:00: [place] mL 31 x 00 Medical 3/8" Syrg Branch Insulin 2022-0 Yes [id number] Use as Uni vers Syringe-Nee 5-18 directed ity of dle U-100 1 00:00: [place] mL 31 x 00 Medical 3/8" Syrg Branch Insulin 2022-0 Yes [id number] Use as Uni vers Syringe-Nee 5-18 directed ity of dle U-100 1 00:00: [place] mL 31 x 00 Medical 3/8" Syrg Branch Insulin 2022-0 Yes [id number] Use as Uni vers Syringe-Nee 5-18 directed ity of dle U-100 1 00:00: [place] mL 31 x 00 Medical 3/8" Syrg Branch Insulin 2022-0 Yes [id number] Use as [facility] vers Syringe-Nee 5-18 directed ity of dle U-100 1 00:00: [place] mL 31 x 00 Medical 3/8" Syrg Branch Insulin 2022-0 Yes [id number] Use as [facility] vers Syringe-Nee 5-18 directed ity of dle U-100 1 00:00: [place] mL 31 x 00 Medical 3/8" Syrg Branch Insulin 2021-0 Yes [id number] Use as [facility] vers Syringe-Nee 5-18 directed ity of dle U-100 1 00:00: [place] mL 31 x 00 Medical 3/8" Syrg Branch Insulin 2021-0 Yes [id number] Use as [facility] vers Syringe-Nee 5-18 directed ity of dle U-100 1 00:00: [place] mL 31 x 00 Medical 3/8" Syrg Branch metformin 2021-0 Yes TAKE 1 [facility] (GLUCOPHAGE 5-16 TABLET BY Col lege ) 1000 MG 00:00: MOUTH of tablet 00 TWICE Medicin DAILY WITH e MEALS metformin 2021-0 Yes TAKE 1 [facility] (GLUCOPHAGE 5-16 TABLET BY Col lege ) 1000 MG 00:00: MOUTH of tablet 00 TWICE Medicin DAILY WITH e MEALS metformin 2021-0 Yes TAKE 1 [facility] (GLUCOPHAGE 5-16 TABLET BY Col lege ) 1000 MG 00:00: MOUTH of tablet 00 TWICE Medicin DAILY WITH e MEALS metformin 2021-0 Yes TAKE 1 [facility] (GLUCOPHAGE 5-16 TABLET BY Col lege ) 1000 MG 00:00: MOUTH of tablet 00 TWICE Medicin DAILY WITH e MEALS METFORMIN 2021-0 Yes [id number] TAKE 1 [facility] 1,000 mg 5-16 TABLET BY ity of tablet 00:00: MOUTH [place] 00 TWICE Medical DAILY WITH Branch MEALS HYDRALAZINE 2021-0 Yes [id number] TAKE 1 [facility] 100 mg 5-16 TABLET BY ity of tablet 00:00: MOUTH [place] 00 THREE Medical TIMES Branch DAILY METFORMIN 2-0 Yes [id number] TAKE 1 [facility] 1,000 mg 5-16 TABLET BY ity of tablet 00:00: MOUTH [place] 00 TWICE Medical DAILY WITH Branch MEALS HYDRALAZINE 2021-0 Yes [id number] TAKE 1 [facility] 100 mg 5-16 TABLET BY ity of tablet 00:00: MOUTH [place] 00 THREE Medical TIMES Branch DAILY METFORMIN 2021-0 Yes [id number] TAKE 1 [facility] 1,000 mg 5-16 TABLET BY ity of tablet 00:00: MOUTH [place] 00 TWICE Medical DAILY WITH Branch MEALS HYDRALAZINE 2021-0 Yes [id number] TAKE 1 [facility] 100 mg 5-16 TABLET BY ity of tablet 00:00: MOUTH [place] 00 THREE Medical TIMES Branch DAILY METFORMIN 2021-0 Yes [id number] TAKE 1 [facility] 1,000 mg 5-16 TABLET BY ity of tablet 00:00: MOUTH TWICE Medical DAILY WITH Branch MEALS HYDRALAZINE 2021-0 Yes [id number] TAKE 1 [facility] 100 mg 5-16 TABLET BY ity of tablet 00:00: MOUTH THREE Medical TIMES Branch DAILY METFORMIN 2-0 Yes [id number] TAKE 1 [facility] 1,000 mg 5-16 TABLET BY ity of tablet 00:00: MOUTH TWICE Medical DAILY WITH Branch MEALS HYDRALAZINE 2021-0 Yes [id number] TAKE 1 [facility] 100 mg 5-16 TABLET BY ity of tablet 00:00: MOUTH THREE Medical TIMES Branch DAILY METFORMIN 2-0 Yes [id number] TAKE 1 [facility] 1,000 mg 5-16 TABLET BY ity of tablet 00:00: MOUTH TWICE Medical DAILY WITH Branch MEALS HYDRALAZINE 2021-0 Yes [id number] TAKE 1 [facility] 100 mg 5-16 TABLET BY ity of tablet 00:00: MOUTH THREE Medical TIMES Branch DAILY METFORMIN 2-0 Yes [id number] TAKE 1 [facility] 1,000 mg 5-16 TABLET BY ity of tablet 00:00: MOUTH TWICE Medical DAILY WITH Branch MEALS HYDRALAZINE 2021-0 Yes [id number] TAKE 1 [facility] 100 mg 5-16 TABLET BY ity of tablet 00:00: MOUTH THREE Medical TIMES Branch DAILY METFORMIN 2-0 Yes [id number] TAKE 1 [facility] 1,000 mg 5-16 TABLET BY ity of tablet 00:00: MOUTH TWICE Medical DAILY WITH Branch MEALS HYDRALAZINE 2-0 Yes [id number] TAKE 1 [facility] 100 mg 5-16 TABLET BY ity of tablet 00:00: MOUTH THREE Medical TIMES Branch DAILY METFORMIN 2-0 Yes [id number] TAKE 1 [facility] 1,000 mg 5-16 TABLET BY ity of tablet 00:00: MOUTH TWICE Medical DAILY WITH Branch MEALS HYDRALAZINE 2-0 Yes [id number] TAKE 1 [facility] 100 mg 5-16 TABLET BY ity of tablet 00:00: MOUTH THREE Medical TIMES Branch DAILY METFORMIN 2-0 Yes [id number] TAKE 1 [facility] 1,000 mg 5-16 TABLET BY ity of tablet 00:00: MOUTH 00 TWICE Medical DAILY WITH Branch MEALS HYDRALAZINE 2022-0 Yes [id number] TAKE 1 [facility] 100 mg 5-16 TABLET BY ity of tablet 00:00: MOUTH THREE Medical TIMES Branch DAILY METFORMIN 2022-0 Yes [id number] TAKE 1 [facility] 1,000 mg 5-16 TABLET BY ity of tablet 00:00: MOUTH 00 TWICE Medical DAILY WITH Branch MEALS HYDRALAZINE 2022-0 Yes [id number] TAKE 1 [facility] 100 mg 5-16 TABLET BY ity of tablet 00:00: MOUTH THREE Medical TIMES Branch DAILY METFORMIN 2022-0 Yes [id number] TAKE 1 [facility] 1,000 mg 5-16 TABLET BY ity of tablet 00:00: MOUTH TWICE Medical DAILY WITH Branch MEALS METFORMIN 2022-0 Yes [id number] TAKE 1 [facility] 1,000 mg 5-16 TABLET BY ity of tablet 00:00: MOUTH TWICE Medical DAILY WITH Branch MEALS METFORMIN 2022-0 Yes [id number] TAKE 1 [facility] 1,000 mg 5-16 TABLET BY ity of tablet 00:00: MOUTH TWICE Medical DAILY WITH Branch MEALS METFORMIN 2022-0 Yes [id number] TAKE 1 [facility] 1,000 mg 5-16 TABLET BY [facility]y of tablet 00:00: MOUTH TWICE Medical DAILY WITH Branch MEALS METFORMIN 2022-0 Yes [id number] TAKE 1 U nivers 1,000 mg 5-16 TABLET BY [facility]y of tablet 00:00: MOUTH TWICE Medical DAILY WITH Branch MEALS METFORMIN 2022-0 Yes [id number] TAKE 1 U nivers 1,000 mg 5-16 TABLET BY ity of tablet 00:00: MOUTH 00 TWICE Medical DAILY WITH Branch MEALS METFORMIN 2022-0 Yes [id number] TAKE 1 U nivers 1,000 mg 5-16 TABLET BY [facility] of tablet 00:00: MOUTH 00 TWICE Medical DAILY WITH Branch MEALS METFORMIN 2022-0 Yes [id number] TAKE 1 U nivers 1,000 mg 5-16 TABLET BY ity of tablet 00:00: MOUTH 00 TWICE Medical DAILY WITH Branch MEALS METFORMIN 2022-0 Yes [id number] TAKE 1 U nivers 1,000 mg 5-16 TABLET BY ity of tablet 00:00: MOUTH 00 TWICE Medical DAILY WITH Branch MEALS METFORMIN 2022-0 Yes [id number] TAKE 1 U nivers 1,000 mg 5-16 TABLET BY ity of tablet 00:00: MOUTH 00 TWICE Medical DAILY WITH Branch MEALS METFORMIN 2022-0 Yes [id number] TAKE 1 U nivers 1,000 mg 5-16 TABLET BY ity of tablet 00:00: MOUTH 00 TWICE Medical DAILY WITH Branch MEALS METFORMIN 2022-0 Yes [id number] TAKE 1 U nivers 1,000 mg 5-16 TABLET BY ity of tablet 00:00: MOUTH 00 TWICE Medical DAILY WITH Branch MEALS METFORMIN 2022-0 Yes [id number] TAKE 1 U nivers 1,000 mg 5-16 TABLET BY ity of tablet 00:00: MOUTH 00 TWICE Medical DAILY WITH Branch MEALS METFORMIN 2022-0 Yes [id number] TAKE 1 U nivers 1,000 mg 5-16 TABLET BY [facility] of tablet 00:00: MOUTH 00 TWICE Medical DAILY WITH Branch MEALS METFORMIN 2022-0 Yes [id number] TAKE 1 U nivers 1,000 mg 5-16 TABLET BY ity of tablet 00:00: MOUTH 00 TWICE Medical DAILY WITH Branch MEALS METFORMIN 2022-0 Yes [id number] TAKE 1 U nivers 1,000 mg 5-16 TABLET BY [facility] of tablet 00:00: MOUTH 00 TWICE Medical DAILY WITH Branch MEALS METFORMIN 2022-0 Yes [id number] TAKE 1 U nivers 1,000 mg 5-16 TABLET BY [facility]y of tablet 00:00: MOUTH 00 TWICE Medical DAILY WITH Branch MEALS METFORMIN 2022-0 Yes [id number] TAKE 1 U nivers 1,000 mg 5-16 TABLET BY [facility] of tablet 00:00: MOUTH 00 TWICE Medical DAILY WITH Branch MEALS METFORMIN 2022-0 Yes [id number] TAKE 1 U nivers 1,000 mg 5-16 TABLET BY [facility] of tablet 00:00: MOUTH 00 TWICE Medical DAILY WITH Branch MEALS METFORMIN 2022-0 Yes [id number] TAKE 1 U nivers 1,000 mg 5-16 TABLET BY [facility] of tablet 00:00: MOUTH 00 TWICE Medical DAILY WITH Branch MEALS METFORMIN 2022-0 Yes [id number] TAKE 1 U nivers 1,000 mg 5-16 TABLET BY [facility] of tablet 00:00: MOUTH 00 TWICE Medical DAILY WITH Branch MEALS METFORMIN 2022-0 Yes [id number] TAKE 1 U nivers 1,000 mg 5-16 TABLET BY ity of tablet 00:00: MOUTH [place] 00 TWICE Medical DAILY WITH Branch MEALS METFORMIN 2021-0 2021- No [id number] TAKE 1 [facility] 1,000 mg 5-16 11-21 TABLET BY ity o f tablet 00:00: 00:00 MOUTH [place] 00 :00 TWICE Medical DAILY WITH Branch MEALS METFORMIN 2021-0 2021- No [id number] TAKE 1 [facility] 1,000 mg 5-16 11-21 TABLET BY ity o f tablet 00:00: 00:00 MOUTH [place] 00 :00 TWICE Medical DAILY WITH Branch MEALS HYDRALAZINE 2021-0 2021- No [id number] TAKE 1 [facility] 100 mg 5-16 09-06 TABLET BY [facility] of tablet 00:00: 00:00 MOUTH [place] 00 :00 THREE Medical TIMES Branch DAILY LISINOPRIL 2021-0 Yes [id number] TAKE 1/2 [facility] 40 mg 5-13 TABLET BY [facility] of tablet 00:00: MOUTH 00 TWICE Medical DAILY Branch LISINOPRIL 2021-0 Yes [id number] TAKE 1/2 [facility] 40 mg 5-13 TABLET BY [facility] tablet 00:00: MOUTH 00 TWICE Medical DAILY Branch LISINOPRIL 2021-0 Yes [id number] TAKE 1/2 [facility] 40 mg 5-13 TABLET BY [facility] of tablet 00:00: MOUTH 00 TWICE Medical DAILY Branch LISINOPRIL 2021-0 Yes [id number] TAKE 1/2 [facility] 40 mg 5-13 TABLET BY [facility] of tablet 00:00: MOUTH 00 TWICE Medical DAILY Branch LISINOPRIL 2021-0 Yes [id number] TAKE 1/2 [facility] 40 mg 5-13 TABLET BY [facility] of tablet 00:00: MOUTH [place] 00 TWICE Medical DAILY Branch LISINOPRIL 2021-0 Yes [id number] TAKE 1/2 [facility] 40 mg 5-13 TABLET BY [facility] of tablet 00:00: MOUTH [place] 00 TWICE Medical DAILY Branch LISINOPRIL 2021-0 Yes [id number] TAKE 1/2 [facility] 40 mg 5-13 TABLET BY [facility] of tablet 00:00: MOUTH [place] 00 TWICE Medical DAILY Branch LISINOPRIL 2021-0 2- No [id number] TAKE 1/2 [facility] 40 mg 5-13 08-08 TABLET BY it[facility] of tablet 00:00: 00:00 MOUTH [place] 00 :00 TWICE Medical DAILY Branch LISINOPRIL 2021- No [id number] TAKE 1/2 [facility] 40 mg 5-13 - TABLET BY ity of tablet 00:00: 00:00 MOUTH [place] 00 :00 TWICE Medical DAILY Branch HUMULIN Yes [id number] ADMINISTER [facility] 70/30 U-100 5-11 70 UNITS it[facility] of INSULIN 100 00:00: [place] unit/mL 00 SKIN EVERY Medica l (70-30) MORNING Branch suspension THEN ADMINISTER 60 UNITS UNDER THE SKIN EVERY EVENING HUMULIN Yes [id number] ADMINISTER [facility] 70/30 U-100 5-11 70 UNITS ity of INSULIN 100 00:00: [place] unit/mL 00 SKIN EVERY Medica l (70-30) MORNING Branch suspension THEN ADMINISTER 60 UNITS UNDER THE SKIN EVERY EVENING HUMULIN Yes [id number] ADMINISTER [facility] 70/30 U-100 5-11 70 UNITS ity of INSULIN 100 00:00: [place] unit/mL 00 SKIN EVERY Medica l (70-30) MORNING Branch suspension THEN ADMINISTER 60 UNITS UNDER THE SKIN EVERY EVENING HUMULIN Yes [id number] ADMINISTER [facility] 70/30 U-100 5-11 70 UNITS ity of INSULIN 100 00:00: [place] unit/mL 00 SKIN EVERY Medica l (70-30) MORNING Branch suspension THEN ADMINISTER 60 UNITS UNDER THE SKIN EVERY EVENING HUMULIN Yes [id number] ADMINISTER [facility] 70/30 U-100 5-11 70 UNITS ity of INSULIN 100 00:00: [place] unit/mL 00 SKIN EVERY Medica l (70-30) MORNING Branch suspension THEN ADMINISTER 60 UNITS UNDER THE SKIN EVERY EVENING HUMULIN 2021- No [id number] ADMINISTER [facility] 70/30 U-100 5-11 08-03 70 [...] needed for Pain. Indication s: chronic pain BD Insulin 2022- No USE 1 [facility] Syringe 5-03 -14 S[facility] ity o f U-500 11/02 00:00: 00:00 DIRECTED [place] as mL 31 gauge 00 :00 TWICE MD x 15/64" DAILY WITH Suraj so syrg MEALS [facility] Insulin Yes USE 1 [facility] Syringe/Nee 5-02 [facility] [place] U-500 00:00: TWICE of (BD INSULIN 00 DAILY WITH Me dicin SYRINGE MEALS. e U-500) 31G X 6MM 0.5 ML MISC Insulin Yes USE 1 [facility] Syringe/Nee 5-02 [facility] U-500 00:00: TWICE of (BD INSULIN 00 DAILY WITH Me dicin SYRINGE MEALS. e U-500) 31G X 6MM 0.5 ML MISC Insulin Yes USE 1 [place] Syringe/Nee 5-02 [facility] U-500 00:00: TWICE of (BD INSULIN 00 DAILY WITH Me dicin SYRINGE MEALS. e U-500) 31G X 6MM 0.5 ML MISC GABAPENTIN Yes [id number] TAKE 1 [facility] 600 mg 5-02 TABLET BY ity of tablet 00:00: MOUTH [place] 00 THREE Medical TIMES Branch DAILY BD INSULIN Yes [id number] USE 1 U nivers SYRINGE 5-02 [facility] ity of U-500 11/02 00:00: TWICE [place] mL 31 gauge 00 DAILY WITH Me dical x 15/64" MEALS. Branch Syrg BD INSULIN Yes [id number] USE 1 U nivers SYRINGE 5-02 [facility] ity of U-500 2 00:00: TWICE [place] mL 31 gauge 00 DAILY WITH Me dical x 15/64" MEALS. Branch Syrg BD INSULIN 2021-0 Yes [id number] USE 1 U nivers SYRINGE 5-02 [facility] ity of U-500 2 00:00: TWICE [place] mL 31 gauge 00 DAILY WITH Me dical x 15/64" MEALS. Branch Syrg BD INSULIN 2021-0 Yes [id number] USE 1 U nivers SYRINGE 5-02 S[facility]ING[facility] ity of U-500 2 00:00: TWICE [place] mL 31 gauge 00 DAILY WITH Me dical x 15/64" MEALS. Branch Syrg BD INSULIN 2021-0 Yes [id number] USE 1 U nivers SYRINGE 5-02 S[facility]INGE ity of U-500 2 00:00: TWICE [place] mL 31 gauge 00 DAILY WITH Me dical x 15/64" MEALS. Branch Syrg BD INSULIN 2021-0 Yes [id number] USE 1 U nivers SYRINGE 5-02 S[facility]INGE ity of U-500 2 00:00: TWICE [place] mL 31 gauge 00 DAILY WITH Me dical x 15/64" MEALS. Branch Syrg BD INSULIN 2021-0 Yes [id number] USE 1 U nivers SYRINGE 5-02 S[facility]INGE ity of U-500 2 00:00: TWICE [place] mL 31 gauge 00 DAILY WITH Me dical x 15/64" MEALS. Branch Syrg BD INSULIN 2021-0 Yes [id number] USE 1 U nivers SYRINGE 5-02 S[facility]INGE ity of U-500 2 00:00: TWICE [place] mL 31 gauge 00 DAILY WITH Me dical x 15/64" MEALS. Branch Syrg BD INSULIN 2021-0 Yes [id number] USE 1 U nivers SYRINGE 5-02 S[facility]INGE ity of U-500 2 00:00: TWICE [place] mL 31 gauge 00 DAILY WITH Me dical x 15/64" MEALS. Branch Syrg BD INSULIN 2021-0 Yes [id number] USE 1 U nivers SYRINGE 5-02 S[facility] ity of U-500 2 00:00: TWICE [place] mL 31 gauge 00 DAILY WITH Me dical x 15/64" MEALS. Branch Syrg BD INSULIN 2021-0 Yes [id number] USE 1 U nivers SYRINGE 5-02 S[facility] ity of U-500 2 00:00: TWICE [place] mL 31 gauge 00 DAILY WITH Me dical x 15/64" MEALS. Branch Syrg BD INSULIN 2021-0 Yes [id number] USE 1 U nivers SYRINGE 5-02 S[facility]E ity of U-500 2 00:00: TWICE [place] mL 31 gauge 00 DAILY WITH Me dical x 15/64" MEALS. Branch Syrg BD INSULIN 2021-0 Yes [id number] USE 1 U nivers SYRINGE 5-02 S[facility] ity of U-500 2 00:00: TWICE [place] mL 31 gauge 00 DAILY WITH Me dical x 15/64" MEALS. Branch Syrg BD INSULIN 2021-0 Yes [id number] USE 1 U nivers SYRINGE 5-02 S[facility]INGE ity of U-500 2 00:00: TWICE [place] mL 31 gauge 00 DAILY WITH Me dical x 15/64" MEALS. Branch Syrg BD INSULIN 2021-0 Yes [id number] USE 1 U nivers SYRINGE 5-02 S[facility]INGE ity of U-500 2 00:00: TWICE [place] mL 31 gauge 00 DAILY WITH Me dical x 15/64" MEALS. Branch Syrg BD INSULIN 2021-0 Yes [id number] USE 1 U nivers SYRINGE 5-02 SYRINGE ity of U-500 2 00:00: TWICE [place] mL 31 gauge 00 DAILY WITH Me dical x 15/64" MEALS. Branch Syrg BD INSULIN 0 Yes [id number] USE 1 U nivers SYRINGE 5-02 S[facility]INGE ity of U-500 2 00:00: TWICE [place] mL 31 gauge 00 DAILY WITH Me dical x 15/64" MEALS. Branch Syrg BD INSULIN 2021-0 Yes [id number] USE 1 U nivers SYRINGE 5-02 S[facility]INGE ity of U-500 2 00:00: TWICE [place] mL 31 gauge 00 DAILY WITH Me dical x 15/64" MEALS. Branch Syrg BD INSULIN 2021-0 Yes [id number] USE 1 U nivers SYRINGE 5-02 S[facility]INGE ity of U-500 2 00:00: TWICE [place] mL 31 gauge 00 DAILY WITH Me dical x 15/64" MEALS. Branch Syrg BD INSULIN 2021-0 Yes [id number] USE 1 U nivers SYRINGE 5-02 S[facility]INGE ity of U-500 2 00:00: TWICE [place] mL 31 gauge 00 DAILY WITH Me dical x 15/64" MEALS. Branch Syrg BD INSULIN 2021-0 Yes [id number] USE 1 U nivers SYRINGE 5-02 S[facility]INGE ity of U-500 2 00:00: TWICE [place] mL 31 gauge 00 DAILY WITH Me dical x 15/64" MEALS. Branch Syrg BD INSULIN 2021-0 Yes [id number] USE 1 U nivers SYRINGE 5-02 S[facility]INGE ity of U-500 2 00:00: TWICE [place] mL 31 gauge 00 DAILY WITH Me dical x 15/64" MEALS. Branch Syrg BD INSULIN 2021-0 Yes [id number] USE 1 U nivers SYRINGE 5-02 SYRINGE ity of U-500 2 00:00: TWICE [place] mL 31 gauge 00 DAILY WITH Me dical x 15/64" MEALS. Branch Syrg BD INSULIN 2021-0 Yes [id number] USE 1 U nivers SYRINGE 5-02 SYRINGE ity of U-500 2 00:00: TWICE [place] mL 31 gauge 00 DAILY WITH Me dical x 15/64" MEALS. Branch Syrg BD INSULIN 0 Yes [id number] USE 1 U nivers SYRINGE 5-02 S[facility]INGE ity of U-500 2 00:00: TWICE [place] mL 31 gauge 00 DAILY WITH Me dical x 15/64" MEALS. Branch Syrg BD INSULIN 2021-0 Yes [id number] USE 1 U nivers SYRINGE 5-02 S[facility]INGE ity of U-500 2 00:00: TWICE [place] mL 31 gauge 00 DAILY WITH Me dical x 15/64" MEALS. Branch Syrg BD INSULIN 2021-0 Yes [id number] USE 1 U nivers SYRINGE 5-02 S[facility]INGE ity of U-500 2 00:00: TWICE [place] mL 31 gauge 00 DAILY WITH Me dical x 15/64" MEALS. Branch Syrg BD INSULIN 2021-0 Yes [id number] USE 1 U nivers SYRINGE 5-02 S[facility]INGE ity of U-500 2 00:00: TWICE [place] mL 31 gauge 00 DAILY WITH Me dical x 15/64" MEALS. Branch Syrg BD INSULIN 2021-0 Yes [id number] USE 1 U nivers SYRINGE 5-02 SYRINGE ity of U-500 2 00:00: TWICE [place] mL 31 gauge 00 DAILY WITH Me dical x 15/64" MEALS. Branch Syrg BD INSULIN 2021-0 Yes [id number] USE 1 U nivers SYRINGE 5-02 S[facility]INGE ity of U-500 2 00:00: TWICE [place] mL 31 gauge 00 DAILY WITH Me dical x 15/64" MEALS. Branch Syrg BD INSULIN 2021-0 Yes [id number] USE 1 U nivers SYRINGE 5-02 SYRINGE ity of U-500 2 00:00: TWICE [place] mL 31 gauge 00 DAILY WITH Me dical x 15/64" MEALS. Branch Syrg BD INSULIN 2021-0 Yes [id number] USE 1 U nivers SYRINGE 5-02 S[facility]INGE ity of U-500 2 00:00: TWICE [place] mL 31 gauge 00 DAILY WITH Me dical x 15/64" MEALS. Branch Syrg BD INSULIN 2021-0 Yes [id number] USE 1 U nivers SYRINGE 5-02 SYRINGE ity of U-500 2 00:00: TWICE [place] mL 31 gauge 00 DAILY WITH Me dical x 15/64" MEALS. Branch Syrg BD INSULIN 2021-0 Yes [id number] USE 1 U nivers SYRINGE 5-02 S[facility]INGE ity of U-500 2 00:00: TWICE [place] mL 31 gauge 00 DAILY WITH Me dical x 15/64" MEALS. Branch Syrg BD INSULIN 2021-0 Yes [id number] USE 1 U nivers SYRINGE 5-02 SYRINGE ity of U-500 2 00:00: TWICE [place] mL 31 gauge 00 DAILY WITH Me dical x 15/64" MEALS. Branch Syrg BD INSULIN 2021-0 Yes [id number] USE 1 U nivers SYRINGE 5-02 S[facility]INGE ity of U-500 2 00:00: TWICE [place] mL 31 gauge 00 DAILY WITH Me dical x 15/64" MEALS. Branch Syrg BD INSULIN 2021-0 Yes [id number] USE 1 U nivers SYRINGE 5-02 S[facility]INGE ity of U-500 2 00:00: TWICE [place] mL 31 gauge 00 DAILY WITH Me dical x 15/64" MEALS. Branch Syrg BD INSULIN 2021-0 Yes [id number] USE 1 U nivers SYRINGE 5-02 S[facility]INGE ity of U-500 2 00:00: TWICE [place] mL 31 gauge 00 DAILY WITH Me dical x 15/64" MEALS. Branch Syrg BD INSULIN 2021-0 Yes [id number] USE 1 U nivers SYRINGE 5-02 S[facility]INGE ity of U-500 2 00:00: TWICE [place] mL 31 gauge 00 DAILY WITH Me dical x 15/64" MEALS. Branch Syrg BD INSULIN 2021-0 Yes [id number] USE 1 U nivers SYRINGE 5-02 SYRINGE ity of U-500 2 00:00: TWICE [place] mL 31 gauge 00 DAILY WITH Me dical x 15/64" MEALS. Branch Syrg BD INSULIN 2021-0 Yes [id number] USE 1 U nivers SYRINGE 5-02 SYRINGE ity of U-500 2 00:00: TWICE [place] mL 31 gauge 00 DAILY WITH Me dical x 15/64" MEALS. Branch Syrg BD INSULIN 2021-0 Yes [id number] USE 1 U nivers SYRINGE 5-02 SYRINGE ity of U-500 2 00:00: TWICE [place] mL 31 gauge 00 DAILY WITH Me dical x 15/64" MEALS. Branch Syrg BD INSULIN 2021-0 Yes [id number] USE 1 U nivers SYRINGE 5-02 SYRINGE ity of U-500 2 00:00: TWICE [place] mL 31 gauge 00 DAILY WITH Me dical x 15/64" MEALS. Branch Syrg BD INSULIN 2021-0 Yes [id number] USE 1 U nivers SYRINGE 5-02 SYRINGE ity of U-500 2 00:00: TWICE [place] mL 31 gauge 00 DAILY WITH Me dical x 15/64" MEALS. Branch Syrg BD INSULIN 2021-0 Yes [id number] USE 1 U nivers SYRINGE 5-02 SYRINGE ity of U-500 2 00:00: TWICE [place] mL 31 gauge 00 DAILY WITH Me dical x 15/64" MEALS. Branch Syrg BD INSULIN 2021-0 Yes [id number] USE 1 U nivers SYRINGE 5-02 S[facility]INGE ity of U-500 2 00:00: TWICE [place] mL 31 gauge 00 DAILY WITH Me dical x 15/64" MEALS. Branch Syrg BD INSULIN 2021-0 Yes [id number] USE 1 U nivers SYRINGE 5-02 SYRINGE ity of U-500 2 00:00: TWICE [place] mL 31 gauge 00 DAILY WITH Me dical x 1564" MEALS. Branch Syrg BD INSULIN 2021-0 Yes [id number] USE 1 U nivers SYRINGE 5-02 SYRINGE ity of U-500 11/02 00:00: TWICE [place] mL 31 gauge 00 DAILY WITH Me dical x 15/64" MEALS. Branch Syrg BD INSULIN 2021-0 Yes [id number] USE 1 U nivers SYRINGE 5-02 SYRINGE ity of U-500 11/02 00:00: TWICE [place] mL 31 gauge 00 DAILY WITH Me dical x 1564" MEALS. Branch Syrg GABAPENTIN 2021-0 2022- No [id number] TAKE 1 [facility] 600 mg 5-02 05-31 TABLET BY ity of tablet 00:00: 00:00 MOUTH [place] 00 :00 THREE Medical TIMES Branch DAILY sucralfate 2021-0 Yes 1g Take 1 g [facility] (CARAFATE) 3-27 by mouth. An ege 1 g tablet 00:00: of 00 Medicin e sucralfate 2021-0 Yes 1g Take 1 g [facility] (CARAFATE) 3-27 by mouth. An ege 1 g tablet 00:00: of 00 Medicin e sucralfate 2021-0 Yes 1g Take 1 g [facility] (CARAFATE) 3-27 by mouth. An ege 1 g tablet 00:00: of 00 Medicin e sucralfate 2021-0 Yes 1g Take 1 g [facility] (CARAFATE) 3-27 by mouth. An ege 1 g tablet 00:00: of 00 Medicin e sucralfate 2021-0 Yes [id number] 1g Take 1 [facility] 1 gram 3-27 tablet by ity of tablet 00:00: mouth [place] 00 before Medical meals and Branch at bedtime. sucralfate 2022-0 Yes [id number] 1g Take 1 [facility] 1 gram 3-27 tablet by ity of tablet 00:00: mouth [place] 00 before Medical meals and Branch at bedtime. sucralfate 2022-0 Yes [id number] 1g Take 1 [facility] 1 gram 3-27 tablet by ity of tablet 00:00: mouth [place] 00 before Medical meals and Branch at bedtime. sucralfate 2022-0 Yes [id number] 1g Take 1 [facility] 1 gram 3-27 tablet by ity of tablet 00:00: mouth [place] 00 before Medical meals and Branch at bedtime. sucralfate 2022-0 Yes [id number] 1g Take 1 [facility] 1 gram 3-27 tablet by ity of tablet 00:00: mouth [place] 00 before Medical meals and Branch at bedtime. sucralfate 2022-0 Yes [id number] 1g Take 1 [facility] 1 gram 3-27 tablet by ity of tablet 00:00: mouth [place] 00 before Medical meals and Branch at bedtime. sucralfate 2022-0 Yes [id number] 1g Take 1 [facility] 1 gram 3-27 tablet by ity of tablet 00:00: mouth [place] 00 before Medical meals and Branch at bedtime. sucralfate 2022-0 Yes [id number] 1g Take 1 [facility] 1 gram 3-27 tablet by ity of tablet 00:00: mouth [place] 00 before Medical meals and Branch at bedtime. sucralfate 2022-0 Yes [id number] 1g Take 1 [facility] 1 gram 3-27 tablet by ity of tablet 00:00: mouth [place] 00 before Medical meals and Branch at bedtime. sucralfate 2022-0 Yes [id number] 1g Take 1 [facility] 1 gram 3-27 tablet by ity of tablet 00:00: mouth [place] 00 before Medical meals and Branch at bedtime. sucralfate 2022-0 Yes [id number] 1g Take 1 [facility] 1 gram 3-27 tablet by ity of tablet 00:00: mouth [place] 00 before Medical meals and Branch at bedtime. sucralfate 2022-0 Yes [id number] 1g Take 1 [facility] 1 gram 3-27 tablet by ity of tablet 00:00: mouth [place] 00 before Medical meals and Branch at bedtime. sucralfate 2022-0 Yes [id number] 1g Take 1 [facility] 1 gram 3-27 tablet by ity of tablet 00:00: mouth [place] 00 before Medical meals and Branch at bedtime. sucralfate 2022-0 Yes [id number] 1g Take 1 [facility] 1 gram 3-27 tablet by ity of tablet 00:00: mouth [place] 00 before Medical meals and Branch at bedtime. sucralfate 2022-0 Yes [id number] 1g Take 1 [facility] 1 gram 3-27 tablet by ity of tablet 00:00: mouth [place] 00 before Medical meals and Branch at bedtime. sucralfate 2022-0 Yes [id number] 1g Take 1 [facility] 1 gram 3-27 tablet by ity of tablet 00:00: mouth [place] 00 before Medical meals and Branch at bedtime. sucralfate 2-0 Yes [id number] 1g Take 1 [facility] 1 gram 3-27 tablet by ity of tablet 00:00: mouth [place] 00 before Medical meals and Branch at bedtime. sucralfate 2-0 Yes [id number] 1g Take 1 [facility] 1 gram 3-27 tablet by ity of tablet 00:00: mouth [place] 00 before Medical meals and Branch at bedtime. sucralfate 2021-0 Yes [id number] 1g Take 1 [facility] 1 gram 3-27 tablet by ity of tablet 00:00: mouth [place] 00 before Medical meals and Branch at bedtime. sucralfate 2021-0 Yes [id number] 1g Take 1 [facility] 1 gram 3-27 tablet by ity of tablet 00:00: mouth [place] 00 before Medical meals and Branch at bedtime. sucralfate 2021-0 Yes [id number] 1g Take 1 [facility] 1 gram 3-27 tablet by ity of tablet 00:00: mouth [place] 00 before Medical meals and Branch at bedtime. sucralfate 2021-0 Yes [id number] 1g Take 1 [facility] 1 gram 3-27 tablet by ity of tablet 00:00: mouth [place] 00 before Medical meals and Branch at bedtime. sucralfate 2021-0 Yes [id number] 1g Take 1 [facility] 1 gram 3-27 tablet by ity of tablet 00:00: mouth [place] 00 before Medical meals and Branch at bedtime. sucralfate 2021-0 Yes [id number] 1g Take 1 [facility] 1 gram 3-27 tablet by ity of tablet 00:00: mouth [place] 00 before Medical meals and Branch at bedtime. sucralfate 2-0 Yes [id number] 1g Take 1 [facility] 1 gram 3-27 tablet by ity of tablet 00:00: mouth [place] 00 before Medical meals and Branch at bedtime. sucralfate 2-0 Yes [id number] 1g Take 1 [facility] 1 gram 3-27 tablet by ity of tablet 00:00: mouth [place] 00 before Medical meals and Branch at bedtime. sucralfate 2-0 Yes [id number] 1g Take 1 [facility] 1 gram 3-27 tablet by ity of tablet 00:00: mouth [place] 00 before Medical meals and Branch at bedtime. sucralfate 2-0 Yes [id number] 1g Take 1 [facility] 1 gram 3-27 tablet by ity of tablet 00:00: mouth [place] 00 before Medical meals and Branch at bedtime. sucralfate 2022-0 Yes [id number] 1g Take 1 [facility] 1 gram 3-27 tablet by ity of tablet 00:00: mouth [place] 00 before Medical meals and Branch at bedtime. sucralfate 2022-0 Yes [id number] 1g Take 1 [facility] 1 gram 3-27 tablet by ity of tablet 00:00: mouth [place] 00 before Medical meals and Branch at bedtime. sucralfate 2-0 Yes [id number] 1g Take 1 [facility] 1 gram 3-27 tablet by ity of tablet 00:00: mouth [place] 00 before Medical meals and Branch at bedtime. sucralfate 2-0 Yes [id number] 1g Take 1 [facility] 1 gram 3-27 tablet by ity of tablet 00:00: mouth [place] 00 before Medical meals and Branch at bedtime. sucralfate 2021-0 Yes [id number] 1g Take 1 [facility] 1 gram 3-27 tablet by ity of tablet 00:00: mouth [place] 00 before Medical meals and Branch at bedtime. sucralfate 2021-0 Yes [id number] 1g Take 1 [facility] 1 gram 3-27 tablet by ity of tablet 00:00: mouth [place] 00 before Medical meals and Branch at bedtime. sucralfate 2-0 Yes [id number] 1g Take 1 [facility] 1 gram 3-27 tablet by ity of tablet 00:00: mouth [place] 00 before Medical meals and Branch at bedtime. sucralfate 2021-0 Yes [id number] 1g Take 1 [facility] 1 gram 3-27 tablet by ity of tablet 00:00: mouth [place] 00 before Medical meals and Branch at bedtime. sucralfate 2022-0 Yes [id number] 1g Take 1 [facility] 1 gram 3-27 tablet by ity of tablet 00:00: mouth [place] 00 before Medical meals and Branch at bedtime. sucralfate 2022-0 Yes [id number] 1g Take 1 [facility] 1 gram 3-27 tablet by ity of tablet 00:00: mouth [place] 00 before Medical meals and Branch at bedtime. sucralfate 2-0 Yes [id number] 1g Take 1 [facility] 1 gram 3-27 tablet by ity of tablet 00:00: mouth [place] 00 before Medical meals and Branch at bedtime. sucralfate 2021-0 Yes [id number] 1g Take 1 [facility] 1 gram 3-27 tablet by ity of tablet 00:00: mouth [place] 00 before Medical meals and Branch at bedtime. sucralfate 2021-0 Yes [id number] 1g Take 1 [facility] 1 gram 3-27 tablet by ity of tablet 00:00: mouth [place] 00 before Medical meals and Branch at bedtime. sucralfate 2021-0 Yes [id number] 1g Take 1 [facility] 1 gram 3-27 tablet by ity of tablet 00:00: mouth [place] 00 before Medical meals and Branch at bedtime. sucralfate 2021-0 Yes [id number] 1g Take 1 [facility] 1 gram 3-27 tablet by ity of tablet 00:00: mouth [place] 00 before Medical meals and Branch at bedtime. sucralfate 2021-0 Yes [id number] 1g Take 1 [facility] 1 gram 3-27 tablet by ity of tablet 00:00: mouth [place] 00 before Medical meals and Branch at bedtime. sucralfate 2021-0 Yes [id number] 1g Take 1 [facility] 1 gram 3-27 tablet by ity of tablet 00:00: mouth [place] 00 before Medical meals and Branch at bedtime. sucralfate 2021-0 Yes [id number] 1g Take 1 [facility] 1 gram 3-27 tablet by ity of tablet 00:00: mouth [place] 00 before Medical meals and Branch at bedtime. sucralfate 2021-0 Yes [id number] 1g Take 1 [facility] 1 gram 3-27 tablet by ity of tablet 00:00: mouth [place] 00 before Medical meals and Branch at bedtime. sucralfate 2021-0 Yes [id number] 1g Take 1 [facility] 1 gram 3-27 tablet by ity of tablet 00:00: mouth [place] 00 before Medical meals and Branch at bedtime. sucralfate 2021-0 Yes [id number] 1g Take 1 [facility] 1 gram 3-27 tablet by ity of tablet 00:00: mouth [place] 00 before Medical meals and Branch at bedtime. metoprolol 2022-0 Yes 100mg QD Take 100 [facility] [...] needed for Anxiety. hydrALAZINE 0 Yes 10mg Q.[id number] Take [address] [facility] (APRESOLINE 3-11 [id number] by mouth [facility] ) 10 MG [...] 02 Center tablet gabapentin 2021-0 Yes 100mg Q.[id number] Take [address] [facility] (NEURONTIN) 3-11 [id number] mg by L [facility] 100 MG 14:10: 3D mouth 3 Medical capsule 02 (three) Center times daily. amLODIPine 0 Yes 10mg QD Take 10 mg C [...] needed for Anxiety. hydrALAZINE 2021-0 Yes 10mg Q.[id number] Take [address] [facility] (APRESOLINE 3-11 [id number] by mouth 3 [facility] ) 10 MG 14:10: 3D (three) Medical tablet 02 times Center daily In am. hydroCHLORO 202-0 Yes 25mg QD Take [address] [facility] thiazide 3-11 by mouth [facility] (HYDRODIURI 14:10: daily. Medi mari L) 25 MG 02 Center tablet spironolact 2021-0 Yes 25mg QD Take [address] [facility] one 3-11 by mouth [facility] (ALDACTONE) 14:10: daily. Medi mari 25 MG 02 Center tablet gabapentin 2021-0 Yes 100mg Q.[id number] Take [address] [facility] (NEURONTIN) 3-11 [id number] mg by L [facility] 100 MG 14:10: 3D mouth 3 Medical capsule 02 (three) Center times daily. amLODIPine 0 Yes 10mg QD Take 10 mg C [...] needed for Anxiety. hydrALAZINE 2021-0 Yes 10mg Q.[id number] Take [address] [facility] (APRESOLINE 3-11 [id number] by mouth 3 [facility] ) 10 MG [...] 02 Center tablet gabapentin 2021-0 Yes 100mg Q.[id number] Take [address] [facility] (NEURONTIN) 3-11 [id number] mg by L [facility] 100 MG 14:10: 3D mouth 3 Medical capsule 02 (three) Center times daily. amLODIPine 2021-0 Yes 10mg QD Take [address] [facility] (NORVASC) 3-11 by [facility] 10 MG 14:10: daily In Medical tablet 02 am. Center insulin 2022-[address] [facility] aspart 3-11 subcutaneo [...] needed for Anxiety. hydrALAZINE 2021-0 Yes 10mg Q.[id number] Take [address] [facility] (APRESOLINE 3-11 [id number] by mouth [facility] ) 10 MG 14:10: 3D (three) Medical tablet 02 times Center daily In am. hydroCHLORO 2022-0 Yes 25mg QD Take [address] [facility] thiazide 3-11 by mouth [facility] (HYDRODIURI 14:10: daily. Medi mari L) 25 MG 02 Center tablet metoprolol 2021-0 Yes 100mg QD Take 100 [...] Medi mari 1 mg Tab 02 Center spironolact 2021-0 Yes 25mg QD Take [address] [facility] one 3-11 by mouth [facility] (ALDACTONE) 14:10: daily. Medi mari 25 MG 02 Center tablet lubiproston 2021-0 Yes 24ug Q.5D Take [address] [facility] (AMITIZA) 3-11 mcg by [facility] 24 MCG 14:10: mouth 2 Medical capsule 02 (two) Center times daily. pantoprazol 2021-0 Yes 40mg QD Take [address] [facility] 3-[facility] (PROTONIX) 14:10: daily. Medic al 40 MG 02 Center tablet clonazePAM 2021-0 Yes .5mg Take 0.[address] [facility] (KlonoPIN) 3-11 mg [facility] 0.5 MG 14:10: mouth 2 Medical tablet 02 (two) Center times daily as needed for Anxiety. hydrALAZINE 2-0 Yes 10mg Q.[id number] Take [address] [facility] (APRESOLINE 3-11 [id number] by mouth [facility] ) 10 MG [...] 02 Center tablet gabapentin 2021-0 Yes 100mg Q.[id number] Take [address] [facility] (NEURONTIN) 3-11 [id number] mg by L [facility] 100 MG 14:10: [...] Center times daily with breakfast and dinner. gabapentin Yes 100mg Q.[id number] Take [address] [facility] (NEURONTIN) 3-11 [id number] mg by L ukes 100 MG 14:10: 3D mouth 3 Medical capsule 02 (three) Center times daily. ondansetron Yes 4mg Take [address] [facility] (ZOFRAN) 4 3-11 by mouth 2 [facility] es MG tablet 14:10: (two) Medical 02 times Center daily as needed for Nausea. liraglutide Yes Inject [facility] (Victoza 3-11 subcutaneo [facility]) 0.6 14:10: usly. Medica l mg/0.1 mL 02 Center (18 mg/3 mL) PnIj amLODIPine Yes 10mg QD Take 10 mg [...] times daily as needed for Anxiety. hydrALAZINE 2022-0 Yes 10mg Q.[id number] Take [address] [facility] (APRESOLINE 3-11 [id number] by mouth 3 [facility] ) 10 MG 14:10: 3D (three) Medical tablet 02 times Center daily In am. hydroCHLORO 202-0 Yes 25mg QD Take [address] [facility] thiazide 3-11 by mouth [facility] (HYDRODIURI 14:10: daily. Medi mari L) 25 MG 02 Center tablet spironolact 2021-0 Yes 25mg QD Take [address] [facility] one 3-11 by mouth [facility] (ALDACTONE) 14:10: daily. Medi mari 25 MG 02 Center tablet gabapentin 2021-0 Yes 100mg Q.[id number] Take [address] [facility] (NEURONTIN) 3-11 [id number] mg by L ukes 100 MG 14:10: 3D mouth 3 Medical capsule 02 (three) Center times daily. amLODIPine 0 Yes 10mg QD Take 10 mg C [...] as needed for Anxiety. hydrALAZINE Yes 10mg Q.[id number] Take [address] [facility] (APRESOLINE 3-11 [id number] by mouth 3 [facility] ) 10 MG [...] 02 Center tablet gabapentin 0 Yes 100mg Q.[id number] Take [address] [facility] (NEURONTIN) 3-11 [id number] mg by L ukes 100 MG 14:10: [...] capsule 02 (two) Center times daily. pantoprazol 2021-0 Yes 40mg QD Take [address] [facility] e 3-11 by mouth [facility] (PROTONIX) 14:10: daily. Medic al 40 MG 02 Center tablet clonazePAM 2021-0 Yes .5mg Take 0.[address] [facility] (KlonoPIN) 3-11 mg by [facility] 0.5 MG 14:10: mouth 2 Medical tablet 02 (two) Center times daily as needed for Anxiety. hydrALAZINE 2021-0 Yes 10mg Q.[id number] Take [address] [facility] (APRESOLINE 3-11 [id number] by mouth 3 [facility] ) 10 MG [...] MG 02 Center tablet gabapentin Yes 100mg Q.[id number] Take [address] [facility] (NEURONTIN) 3-11 [id number] mg by L ukes 100 MG 14:10: [...] 00 TWICE Medical DAILY Branch METOPROLOL 2021-0 2021- No TAKE 1 Univ ers TARTRATE 2-14 06-09 TABLET BY ity o f 100 mg 00:00: 00:00 MOUTH [place] tablet 00 :00 TWICE Medical DAILY Branch HYDROCHLORO 2021-0 Yes [id number] 12.5mg TAKE 1 [facility] THIAZIDE 1-19 CAPSULE BY ity o f 12.5 mg 00:00: MOUTH [place] capsule 00 DAILY Medical Branch HYDROCHLORO 2021-0 Yes [id number] 12.5mg TAKE 1 [facility] THIAZIDE 1-19 CAPSULE BY ity o f 12.5 mg 00:00: MOUTH [place] capsule 00 DAILY Medical Branch HYDROCHLORO 2021-0 Yes [id number] 12.5mg TAKE 1 [facility] THIAZIDE 1-19 CAPSULE BY ity o f 12.5 mg 00:00: MOUTH [place] capsule 00 DAILY Medical Branch HYDROCHLORO 2021-0 Yes [id number] 12.5mg TAKE 1 [facility] THIAZIDE 1-19 CAPSULE BY ity o f 12.5 mg 00:00: MOUTH [place] capsule 00 DAILY Medical Branch HYDROCHLORO 2021-0 2021- No [id number] 12.5mg TAKE 1 [facility] THIAZIDE 1-19 07-18 CAPSULE BY ity of 12.5 mg 00:00: 00:00 MOUTH [place] capsule 00 :00 DAILY Medical Branch Prucaloprid 2021-0 Yes [id number] 2mg Take 2 mg [place] e Succinate 1-06 by mouth An ege 2 MG TABS 00:00: daily. of Medicin e Prucaloprid Yes [id number] 2mg Take 2 mg [facility] e Succinate 1-06 by mouth An ege 2 MG TABS 00:00: daily. of Medicin e PEG-KCl-NaC Yes [id number] [MOVI [facility] l-NaSulf-Na 1-06 PREP] Take [facility]: as of (MOVIPREP) 00 directed. Medi patsy 100 g SOLR e Prucaloprid 0 Yes [id number] 2mg Take 2 mg [place] [facility] Succinate 1-06 by mouth An ege 2 MG TABS 00:00: daily. of Medicin e Prucaloprid Yes [id number] 2mg Take 2 mg [facility] e Succinate 11-06 by mouth An ege 2 MG TABS 00:00: daily. of Medicin e Prucaloprid Yes [id number] 2mg Take 2 mg [place] [facility] Succinate 11-06 by mouth An ege 2 MG TABS 00:00: daily. of Medicin e nitroglycer 2020-11 Yes nitroglyce [facility] in 12-28 rin 0.4 mg [place] (NITROSTAT) 00:00: sublingual of 0.4 mg [address] 1 e tablet TABLET UNDER THE TONGUE EVERY 5 MINUTES NEEDED FOR CHEST PAIN. nitroglycer 2020-11 Yes nitroglyce [facility] in 12-28 rin 0.4 mg [place] (NITROSTAT) 00:00: sublingual of 0.4 mg [address] 1 e tablet TABLET UNDER THE TONGUE EVERY 5 MINUTES NEEDED FOR CHEST PAIN. nitroglycer 2020-11 Yes nitroglyce [facility] in 12-28 rin 0.4 mg [place] (NITROSTAT) 00:00: sublingual of 0.4 mg 00 [...] Branch MINUTES NEEDED FOR CHEST PAIN. NITROGLYCER 2020-11- No PLACE 1 Un ally IN 0.4 mg 2-27 09-26 TABLET ity of sublingual 00:00: 00:00 UNDER THE [place] tablet 00 :00 TONGUE Medical EVERY 5 Branch MINUTES NEEDED FOR CHEST PAIN. Diclofenac 2020-11 Yes diclofenac B aylor Sodium [...] e AFFECTED AREA FOUR TIMES DAILY DICLOFENAC 2020-11 Yes [id number] APPLY TO Univers SODIUM 1 % 2-02 THE ity of gel 00:00: AFFECTED [place] 00 AREA FOUR Medical TIMES Branch DAILY DICLOFENAC 2020-11 Yes [id number] APPLY TO Univers SODIUM 1 % 2-02 THE ity of gel 00:00: AFFECTED [place] 00 AREA FOUR Medical TIMES Branch DAILY DICLOFENAC 2020-11 Yes [id number] APPLY TO Univers SODIUM 1 % 2-02 THE ity of gel 00:00: AFFECTED 00 AREA FOUR Medical TIMES Branch DAILY DICLOFENAC 2020-11 Yes [id number] APPLY TO Univers SODIUM 1 % 2-02 THE ity of gel 00:00: AFFECTED [place] 00 AREA FOUR Medical TIMES Branch DAILY DICLOFENAC 2020-11 Yes [id number] APPLY TO Univers SODIUM 1 % 2-02 THE ity of gel 00:00: AFFECTED [place] 00 AREA FOUR Medical TIMES Branch DAILY DICLOFENAC 2020-11 Yes [id number] APPLY TO Univers SODIUM 1 % 2-02 THE ity of gel 00:00: AFFECTED [place] 00 AREA FOUR Medical TIMES Branch DAILY DICLOFENAC 2020-11 Yes [id number] APPLY TO Univers SODIUM 1 % 2-02 THE ity of gel 00:00: AFFECTED [place] 00 AREA FOUR Medical TIMES Branch DAILY DICLOFENAC 2020-11 Yes [id number] APPLY TO Univers SODIUM 1 % 2-02 THE ity of gel 00:00: AFFECTED [place] 00 AREA FOUR Medical TIMES Branch DAILY DICLOFENAC 2020-11 Yes [id number] APPLY TO Univers SODIUM 1 % 2-02 THE ity of gel 00:00: AFFECTED [place] 00 AREA FOUR Medical TIMES Branch DAILY DICLOFENAC 2020-11 Yes [id number] APPLY TO Univers SODIUM 1 % 2-02 THE ity of gel 00:00: AFFECTED [place] 00 AREA FOUR Medical TIMES Branch DAILY DICLOFENAC 2020-11 Yes [id number] APPLY TO Univers SODIUM 1 % 2-02 THE ity of gel 00:00: AFFECTED [place] 00 [facility] FOUR Medical TIMES Branch DAILY DICLOFENAC 2020-11 Yes [id number] APPLY TO Univers SODIUM 1 % 2-02 THE ity of gel 00:00: AFFECTED [place] 00 [facility] FOUR Medical TIMES Branch DAILY DICLOFENAC 2020-11 Yes [id number] APPLY TO Univers SODIUM 1 % 2-02 THE ity of gel 00:00: AFFECTED [place] 00 [facility] Medical TIMES Branch DAILY DICLOFENAC 2020-11 Yes [id number] APPLY TO Univers SODIUM 1 % 2-02 THE ity of gel 00:00: AFFECTED [place] 00 [facility] Medical TIMES Branch DAILY DICLOFENAC 2020-11 Yes [id number] APPLY TO Univers SODIUM 1 % 2-02 THE ity of gel 00:00: AFFECTED [place] 00 [facility] Medical TIMES Branch DAILY DICLOFENAC 2020-11 Yes [id number] APPLY TO Univers SODIUM 1 % 2-02 THE ity of gel 00:00: AFFECTED [place] 00 [facility] Medical TIMES Branch DAILY DICLOFENAC 2020-11 Yes [id number] APPLY TO Univers SODIUM 1 % 2-02 THE ity of gel 00:00: AFFECTED [place] 00 [facility] Medical TIMES Branch DAILY DICLOFENAC 2020-11 Yes [id number] APPLY TO Univers SODIUM 1 % 2-02 THE ity of gel 00:00: AFFECTED [place] 00 [facility] FOUR Medical TIMES Branch DAILY DICLOFENAC 2020-11 Yes [id number] APPLY TO Univers SODIUM 1 % 2-02 THE ity of gel 00:00: AFFECTED [place] 00 [facility] Medical TIMES Branch DAILY DICLOFENAC 2020-11 Yes [id number] APPLY TO Univers SODIUM 1 % 2-02 THE ity of gel 00:00: AFFECTED [place] 00 [facility] Medical TIMES Branch DAILY DICLOFENAC 2020-11 Yes [id number] APPLY TO Univers SODIUM 1 % 2-02 THE ity of gel 00:00: AFFECTED 00 [facility] FOUR Medical TIMES Branch DAILY DICLOFENAC 2020-11 Yes [id number] APPLY TO Univers SODIUM 1 % 2-02 THE ity of gel 00:00: AFFECTED [place] 00 [facility] FOUR Medical TIMES Branch DAILY DICLOFENAC 2020-11- No [id number] APPLY TO Univers SODIUM 1 % 2-02 10-25 THE ity of gel 00:00: 00:00 AFFECTED [place] 00 :00 [facility] FOUR Medical TIMES Branch DAILY DICLOFENAC 2020-11- No [id number] APPLY TO Univers SODIUM 1 % 2-02 10-25 THE ity of gel 00:00: 00:00 AFFECTED [place] 00 :00 AREA FOUR Medical TIMES Branch DAILY colchicine 2020-11 Yes [id number] .6mg Take 1 U nivers 0.6 mg 0-07 tablet by ity of tablet 00:00: mouth [place] 00 daily. Medical Branch colchicine 2020-11 Yes [id number] .6mg Take 1 U nivers 0.6 mg 0-07 tablet by ity of tablet 00:00: mouth [place] 00 daily. Medical Branch colchicine 2020-11 Yes [id number] .6mg Take 1 U nivers 0.6 mg 0-07 tablet by ity of tablet 00:00: mouth [place] 00 daily. Medical Branch colchicine 2020-11 Yes [id number] .6mg Take 1 U nivers 0.6 mg 0-07 tablet by ity of tablet 00:00: mouth [place] 00 daily. Medical Branch colchicine 2020-11 Yes [id number] .6mg Take 1 U nivers 0.6 mg 0-07 tablet by ity of tablet 00:00: mouth [place] 00 daily. Medical Branch colchicine 2020-11 Yes [id number] .6mg Take 1 U nivers 0.6 mg 0-07 tablet by ity of tablet 00:00: mouth [place] 00 daily. Medical Branch colchicine 2020-11 Yes [id number] .6mg Take 1 U nivers 0.6 mg 0-07 tablet by ity of tablet 00:00: mouth [place] 00 daily. Medical Branch colchicine 2020-11 Yes [id number] .6mg Take 1 U nivers 0.6 mg 0-07 tablet by ity of tablet 00:00: mouth [place] 00 daily. Medical Branch colchicine 2020-11 Yes [id number] .6mg Take 1 U nivers 0.6 mg 0-07 tablet by ity of tablet 00:00: mouth [place] 00 daily. Medical Branch colchicine 2020-11 Yes [id number] .6mg Take 1 U nivers 0.6 mg 0-07 tablet by ity of tablet 00:00: mouth [place] 00 daily. Medical Branch colchicine 2020-11 Yes [id number] .6mg Take 1 U nivers 0.6 mg 0-07 tablet by ity of tablet 00:00: mouth [place] 00 daily. Medical Branch colchicine 2020-11 Yes [id number] .6mg Take 1 U nivers 0.6 mg 0-07 tablet by ity of tablet 00:00: mouth [place] 00 daily. Medical Branch colchicine 2020-11 Yes [id number] .6mg Take 1 U nivers 0.6 mg 0-07 tablet by ity of tablet 00:00: mouth [place] 00 daily. Medical Branch colchicine 2020-11- No [id number] .6mg Take 1 Univers 0.6 mg 0-07 [...] gauge 00:00: x 03/16 Syrg Medical Branch mirtazapine 2020-0 Yes 15mg Take 15 mg Univers 15 mg 7-14 by mouth ity of tablet 09:38: at [place] [address] bedtime. Medical Branch mesalamine 0 Yes 1.5g Take 1.5 g U nivers 0.375 gram 7-14 by mouth ity o f 24 hr 09:38: daily. [place] [address] Medical [place] mirtazapine 2021-0 Yes 15mg Take 15 mg Univers 15 mg 7-14 by mouth ity of tablet 09:38: at [place] [address] bedtime. Medical Branch mesalamine 2020-0 Yes 1.5g Take 1.5 g U nivers 0.375 gram 7-14 by mouth ity o f 24 hr 09:38: daily. [place] capsule 49 Medical Branch mirtazapine 2020-0 Yes 15mg Take 15 mg [facility] 15 mg 7-14 by mouth ity of tablet 09:38: at [place] [address] bedtime. Medical Branch mesalamine 2020-0 Yes 1.5g Take 1.5 g U nivers 0.375 gram 7-14 by mouth ity o f 24 hr 09:38: daily. [facility] 49 Medical Branch mirtazapine 2020-0 Yes 15mg Take 15 mg Univers 15 mg 7-14 by mouth ity of tablet 09:38: at [place] [address] bedtime. Medical Branch mesalamine 2020-0 Yes 1.5g Take 1.5 g U nivers 0.375 gram 7-14 by mouth ity o f 24 hr 09:38: daily. [facility] 49 Medical Branch mirtazapine 2020-0 Yes 15mg Take 15 mg Univers 15 mg 7-14 by mouth ity of tablet 09:38: at [place] [address] bedtime. Medical Branch mesalamine 2020-0 Yes 1.5g Take 1.5 g U nivers 0.375 gram 7-14 by mouth ity o f 24 hr 09:38: daily. [facility] 49 Medical Branch mirtazapine 2020-0 Yes 15mg Take 15 mg Univers 15 mg 7-14 by mouth ity of tablet 09:38: at [place] [address] bedtime. Medical [place] mesalamine 2020-0 Yes 1.5g Take 1.5 g U nivers 0.375 gram 7-14 by mouth ity o f 24 hr 09:38: daily. [facility] 49 Medical Branch mirtazapine 2020-0 Yes 15mg Take 15 mg Univers 15 mg 7-14 by mouth ity of tablet 09:38: at [place] [address] bedtime. Medical [place] mesalamine 2020-0 Yes 1.5g Take 1.5 g U nivers 0.375 gram 7-14 by mouth ity o f 24 hr 09:38: daily. [facility] 49 Medical [place] mirtazapine 2020-0 Yes 15mg Take 15 mg Univers 15 mg 7-14 by mouth ity of tablet 09:38: at [place] [address] bedtime. Medical Branch mesalamine 2020-0 Yes 1.5g Take 1.5 g U nivers 0.375 gram 7-14 by mouth ity o f 24 hr 09:38: daily. [place] capsule 49 Medical Branch mirtazapine 2020-0 Yes 15mg Take 15 mg Univers 15 mg 7-14 by mouth ity of tablet 09:38: at [place] [address] bedtime. Medical Branch mesalamine 2020-0 Yes 1.5g Take 1.5 g U nivers 0.375 gram 7-14 by mouth ity o f 24 hr 09:38: daily. [facility] 49 Medical Branch mirtazapine 2020-0 Yes 15mg Take 15 mg Univers 15 mg 7-14 by mouth ity of tablet 09:38: at [place] [address] bedtime. Medical Branch mesalamine 2020-0 Yes 1.5g Take 1.5 g U nivers 0.375 gram 7-14 by mouth ity o f 24 hr 09:38: daily. [facility] 49 Medical Branch mirtazapine 2020-0 Yes 15mg Take 15 mg Univers 15 mg 7-14 by mouth ity of tablet 09:38: at [place] [address] bedtime. Medical Branch mesalamine 2020-0 Yes 1.5g Take 1.5 g U nivers 0.375 gram 7-14 by mouth ity o f 24 hr 09:38: daily. [facility] 49 Medical Branch mirtazapine 2020-0 Yes 15mg Take 15 mg Univers 15 mg 7-14 by mouth ity of tablet 09:38: at [place] [address] bedtime. Medical Branch mesalamine 2020-0 Yes 1.5g Take 1.5 g U nivers 0.375 gram 7-14 by mouth ity o f 24 hr 09:38: daily. [place] capsule 49 Medical Branch mirtazapine 2020-0 Yes 15mg Take 15 mg Univers 15 mg 7-14 by mouth ity of tablet 09:38: at [place] [address] bedtime. Medical Branch mesalamine 2020-0 Yes 1.5g Take 1.5 g U nivers 0.375 gram 7-14 by mouth ity o f 24 hr 09:38: daily. [facility] 49 Medical Branch mirtazapine 2020-0 Yes 15mg Take 15 mg Univers 15 mg 7-14 by mouth ity of tablet 09:38: at [place] [address] bedtime. Medical Branch mesalamine 2020-0 Yes 1.5g Take 1.5 g U nivers 0.375 gram 7-14 by mouth ity o f 24 hr 09:38: daily. [facility] 49 Medical Branch mirtazapine 2020-0 Yes 15mg Take 15 mg Univers 15 mg 7-14 by mouth ity of tablet 09:38: at [place] [address] bedtime. Medical Branch mesalamine 2020-0 Yes 1.5g Take 1.5 g U nivers 0.375 gram 7-14 by mouth ity o f 24 hr 09:38: daily. [facility] 49 Medical Branch mirtazapine 2020-0 Yes 15mg Take 15 mg Univers 15 mg 7-14 by mouth ity of tablet 09:38: at [place] [address] bedtime. Medical Branch mesalamine 2020-0 Yes 1.5g Take 1.5 g U nivers 0.375 gram 7-14 by mouth ity o f 24 hr 09:38: daily. [facility] 49 Medical Branch mirtazapine 2020-0 Yes 15mg Take 15 mg Univers 15 mg 7-14 by mouth ity of tablet 09:38: at [place] [address] bedtime. Medical Branch mesalamine 2020-0 Yes 1.5g Take 1.5 g U nivers 0.375 gram 7-14 by mouth ity o f 24 hr 09:38: daily. [facility] 49 Medical Branch mirtazapine 2020-0 Yes 15mg Take 15 mg Univers 15 mg 7-14 by mouth ity of tablet 09:38: at [place] [address] bedtime. Medical [place] mesalamine 2020-0 Yes 1.5g Take 1.5 g U nivers 0.375 gram 7-14 by mouth ity o f 24 hr 09:38: daily. [facility] 49 Medical Branch mirtazapine 2020-0 Yes 15mg Take 15 mg Univers 15 mg 7-14 by mouth ity of tablet 09:38: at [place] [address] bedtime. Medical Branch mesalamine 2020-0 Yes 1.5g Take 1.5 g U nivers 0.375 gram 7-14 by mouth ity o f 24 hr 09:38: daily. [facility] 49 Medical Branch mirtazapine 2020-0 Yes 15mg Take 15 mg Univers 15 mg 7-14 by mouth ity of tablet 09:38: at [place] [address] bedtime. Medical Branch mesalamine 2020-0 Yes 1.5g Take 1.5 g U nivers 0.375 gram 7-14 by mouth ity o f 24 hr 09:38: daily. [place] capsule 49 Medical Branch mirtazapine 2020-0 Yes 15mg Take 15 mg Univers 15 mg 7-14 by mouth ity of tablet 09:38: at [place] [address] bedtime. Medical Branch mesalamine 2020-0 Yes 1.5g Take 1.5 g U nivers 0.375 gram 7-14 by mouth ity o f 24 hr 09:38: daily. [facility] 49 Medical Branch mirtazapine 2020-0 Yes 15mg Take 15 mg Univers 15 mg 7-14 by mouth ity of tablet 09:38: at [place] [address] bedtime. Medical Branch mesalamine 2020-0 Yes 1.5g Take 1.5 g U nivers 0.375 gram 7-14 by mouth ity o f 24 hr 09:38: daily. [facility] 49 Medical Branch mirtazapine 2020-0 Yes 15mg Take 15 mg Univers 15 mg 7-14 by mouth ity of tablet 09:38: at [place] [address] bedtime. Medical Branch mesalamine 2020-0 Yes 1.5g Take 1.5 g U nivers 0.375 gram 7-14 by mouth ity o f 24 hr 09:38: daily. [facility] 49 Medical Branch mirtazapine 2020-0 Yes 15mg Take 15 mg Univers 15 mg 7-14 by mouth ity of tablet 09:38: at [place] [address] bedtime. Medical Branch mesalamine 2020-0 Yes 1.5g Take 1.5 g U nivers 0.375 gram 7-14 by mouth ity o f 24 hr 09:38: daily. [facility] 49 Medical Branch mirtazapine 2020-0 Yes 15mg Take 15 mg Univers 15 mg 7-14 by mouth ity of tablet 09:38: at [place] [address] bedtime. Medical Branch mesalamine 2020-0 Yes 1.5g Take 1.5 g U nivers 0.375 gram 7-14 by mouth ity o f 24 hr 09:38: daily. [facility] 49 Medical Branch mirtazapine 2020-0 Yes 15mg Take 15 mg Univers 15 mg 7-14 by mouth ity of tablet 09:38: at [place] [address] bedtime. Medical Branch mesalamine 2020-0 Yes 1.5g Take 1.5 g U nivers 0.375 gram 7-14 by mouth ity o f 24 hr 09:38: daily. [place] capsule 49 Medical Branch mirtazapine 2020-0 Yes 15mg Take 15 mg Univers 15 mg 7-14 by mouth ity of tablet 09:38: at [place] [address] bedtime. Medical Branch mesalamine 2020-0 Yes 1.5g Take 1.5 g U nivers 0.375 gram 7-14 by mouth ity o f 24 hr 09:38: daily. [facility] 49 Medical Branch mirtazapine 2020-0 Yes 15mg Take 15 mg Univers 15 mg 7-14 by mouth ity of tablet 09:38: at [place] [address] bedtime. Medical Branch mesalamine 2020-0 Yes 1.5g Take 1.5 g U nivers 0.375 gram 7-14 by mouth ity o f 24 hr 09:38: daily. [facility] 49 Medical Branch mirtazapine 2020-0 Yes 15mg Take 15 mg Univers 15 mg 7-14 by mouth ity of tablet 09:38: at [place] [address] bedtime. Medical Branch mesalamine 2020-0 Yes 1.5g Take 1.5 g U nivers 0.375 gram 7-14 by mouth ity o f 24 hr 09:38: daily. [facility] 49 Medical Branch mirtazapine 2020-0 Yes 15mg Take 15 mg Univers 15 mg 7-14 by mouth ity of tablet 09:38: at [place] [address] bedtime. Medical [place] mesalamine 2020-0 Yes 1.5g Take 1.5 g U nivers 0.375 gram 7-14 by mouth ity o f 24 hr 09:38: daily. [place] capsule 49 Medical Branch mirtazapine 2020-0 Yes 15mg Take 15 mg [facility] 15 mg 7-14 by mouth ity of tablet 09:38: at [place] [address] bedtime. Medical [place] mesalamine 2020-0 Yes 1.5g Take 1.5 g U nivers 0.375 gram 7-14 by mouth ity o f 24 hr 09:38: daily. [facility] 49 Medical Branch mirtazapine 2020-0 Yes 15mg Take 15 mg Univers 15 mg 7-14 by mouth ity of tablet 09:38: at [place] [address] bedtime. Medical Branch mesalamine 2020-0 Yes 1.5g Take 1.5 g U nivers 0.375 gram 7-14 by mouth ity o f 24 hr 09:38: daily. [facility] 49 Medical Branch mirtazapine 2020-0 Yes 15mg Take 15 mg Univers 15 mg 7-14 by mouth ity of tablet 09:38: at [place] [address] bedtime. Medical Branch mesalamine 2020-0 Yes 1.5g Take 1.5 g U nivers 0.375 gram 7-14 by mouth ity o f 24 hr 09:38: daily. [facility] 49 Medical Branch mirtazapine 2020-0 Yes 15mg Take 15 mg Univers 15 mg 7-14 by mouth ity of tablet 09:38: at [place] [address] bedtime. Medical Branch mesalamine 2020-0 Yes 1.5g Take 1.5 g U nivers 0.375 gram 7-14 by mouth ity o f 24 hr 09:38: daily. [facility] 49 Medical Branch mirtazapine 2020-0 Yes 15mg Take 15 mg Univers 15 mg 7-14 by mouth ity of tablet 09:38: at [place] [address] bedtime. Medical Branch mesalamine 2020-0 Yes 1.5g Take 1.5 g U nivers 0.375 gram 7-14 by mouth ity o f 24 hr 09:38: daily. [facility] 49 Medical Branch mirtazapine 2020-0 Yes 15mg Take 15 mg Univers 15 mg 7-14 by mouth ity of tablet 09:38: at [place] [address] bedtime. Medical Branch mesalamine 2020-0 Yes 1.5g Take 1.5 g U nivers 0.375 gram 7-14 by mouth ity o f 24 hr 09:38: daily. [facility] 49 Medical Branch mirtazapine 2020-0 Yes 15mg Take 15 mg [facility] 15 mg 7-14 by mouth ity of tablet 09:38: at [place] [address] bedtime. Medical Branch mesalamine 2020-0 Yes 1.5g Take 1.5 g U nivers 0.375 gram 7-14 by mouth ity o f 24 hr 09:38: daily. [facility] 49 Medical Branch mirtazapine 2020-0 Yes 15mg Take 15 mg Univers 15 mg 7-14 by mouth ity of tablet 09:38: at [place] [address] bedtime. Medical Branch mesalamine 2020-0 Yes 1.5g Take 1.5 g U nivers 0.375 gram 7-14 by mouth ity o f 24 hr 09:38: daily. [facility] 49 Medical Branch mirtazapine 2020-0 Yes 15mg Take 15 mg [facility] 15 mg 7-14 by mouth ity of tablet 09:38: at [place] [address] bedtime. Medical Branch mesalamine 2020-0 Yes 1.5g Take 1.5 g U nivers 0.375 gram 7-14 by mouth ity o f 24 hr 09:38: daily. [facility] 49 Medical Branch mirtazapine 2020-0 Yes 15mg Take 15 mg [facility] 15 mg 7-14 by mouth ity of tablet 09:38: at [place] [address] bedtime. Medical Branch mesalamine 2020-0 Yes 1.5g Take 1.5 g U nivers 0.375 gram 7-14 by mouth ity o f 24 hr 09:38: daily. [facility] 49 Medical Branch mirtazapine 2020-0 Yes 15mg Take 15 mg [facility] 15 mg 7-14 by mouth ity of tablet 09:38: at [place] [address] bedtime. Medical Branch mesalamine 2020-0 Yes 1.5g Take 1.5 g U nivers 0.375 gram 7-14 by mouth ity o f 24 hr 09:38: daily. [place] [address] Medical Branch mirtazapine 2020-0 Yes 15mg Take 15 mg [facility] 15 mg 7-14 by mouth ity of tablet 09:38: at [place] [address] bedtime. Medical [place] mesalamine 2020-0 Yes 1.5g Take 1.5 g U nivers 0.375 gram 7-14 by mouth ity o f 24 hr 09:38: daily. [facility] 49 Medical Branch mirtazapine 2020-0 Yes 15mg Take 15 mg [facility] 15 mg 7-14 by mouth ity of tablet 09:38: at [place] [address] bedtime. Medical Branch mesalamine 2020-0 Yes 1.5g Take 1.5 g U nivers 0.375 gram 7-14 by mouth ity o f 24 hr 09:38: daily. [place] [address] Medical Branch mirtazapine 2020-0 Yes 15mg Take 15 mg [facility] 15 mg 7-14 by mouth ity of tablet 09:38: at [place] [address] bedtime. [facility] mesalamine 0 Yes 1.5g Take 1.5 g U nivers 0.375 gram 7-14 by mouth ity o f 24 hr 09:38: daily. [facility] 49 [facility] mirtazapine 2020-0 Yes 15mg Take 15 mg Univers 15 mg 7-14 by mouth ity of tablet 09:38: at [place] [address] bedtime. [facility] mesalamine 2020-0 Yes 1.5g Take 1.5 g U nivers 0.375 gram 7-14 by mouth ity o f 24 hr 09:38: daily. [address] mirtazapine 2020-0 Yes 15mg Take 15 mg Univers 15 mg 7-14 by mouth ity of tablet 09:38: at [place] [address] bedtime. [facility] mesalamine 0 Yes 1.5g Take 1.5 g [facility] 0.375 gram 7-14 by mouth ity o f 24 hr 09:38: daily. [address] mirtazapine 0 Yes 15mg Take 15 mg [facility] 15 mg 7-14 by mouth ity of tablet 09:38: at [place] [address] bedtime. [facility] mesalamine 0 Yes 1.5g Take 1.5 g [facility] n[facility] 0.375 gram 7-14 by mouth ity o f 24 hr 09:38: daily. [address] mirtazapine 0 Yes 15mg Take 15 mg [facility] 15 mg 7-14 by mouth ity of tablet 09:38: at [place] [address] bedtime. [facility] mesalamine 2020-0 Yes 1.5g Take 1.5 g [facility] 0.375 gram 7-14 by mouth ity o f 24 hr 09:38: daily. [address] mirtazapine 2020-0 Yes 15mg Take 15 mg [facility] 15 mg 7-14 by mouth ity of tablet 09:38: at [place] [address] bedtime. [facility] mesalamine 2020-0 Yes 1.5g Take 1.5 g [facility]ivers 0.375 gram 7-14 by mouth ity o f 24 hr 09:38: daily. [address] predniSONE 2020-0 Yes prednisone [facility] (DELTASONE) [...] e MOUTH EVERY DAY predniSONE 2021-0 Yes 10mg Take 10 mg [facility] 10 mg 6-22 by mouth ity of tablet 00:00: daily. [address] predniSONE 2021-0 Yes 10mg Take 10 mg [facility] 10 mg 6-22 by mouth ity of tablet 00:00: daily. [address] predniSONE 2021-0 Yes 10mg Take 10 mg [facility] 10 mg 6-22 by mouth ity of tablet 00:00: daily. [address] predniSONE 2021-0 Yes 10mg Take 10 mg [facility] 10 mg 6-22 by mouth ity of tablet 00:00: daily. [address] predniSONE 2021-0 Yes 10mg Take 10 mg [facility] 10 mg 6-22 by mouth ity of tablet 00:00: daily. [address] predniSONE 2021-0 Yes 10mg Take 10 mg [facility] 10 mg 6-22 by mouth ity of tablet 00:00: daily. [address] predniSONE 2021-0 Yes 10mg Take 10 mg [facility] 10 mg 6-22 by mouth ity of tablet 00:00: daily. [address] predniSONE 2021-0 Yes 10mg Take 10 mg [facility] 10 mg 6-22 by mouth ity of tablet 00:00: daily. [address] predniSONE 2021-0 Yes 10mg Take 10 mg [facility] 10 mg 6-22 by mouth ity of tablet 00:00: daily. [address] predniSONE 2021-0 Yes 10mg Take 10 mg [facility] 10 mg 6-22 by mouth ity of tablet 00:00: daily. [address] predniSONE 2021-0 Yes 10mg Take 10 mg [facility] 10 mg 6-22 by mouth ity of tablet 00:00: daily. [place] [facility] predniSONE 2021-0 Yes 10mg Take 10 mg U n[facility] 10 mg 6-22 by mouth ity of tablet 00:00: daily. [place] [facility] predniSONE 2021-0 Yes 10mg Take 10 mg [facility] n[facility] 10 mg 6-22 by mouth ity of tablet 00:00: daily. [place] [facility] predniSONE 2021-0 Yes 10mg Take 10 mg [facility] 10 mg 6-22 by mouth ity of tablet 00:00: daily. [place] [facility] predniSONE 2021-0 Yes 10mg Take 10 mg [facility] 10 mg 6-22 by mouth ity of tablet 00:00: daily. [address] predniSONE 2021-0 Yes 10mg Take 10 mg [facility] 10 mg 6-22 by mouth ity of tablet 00:00: daily. [address] predniSONE 2021-0 Yes 10mg Take 10 mg [facility] 10 mg 6-22 by mouth ity of tablet 00:00: daily. [place] [facility] predniSONE 2021-0 Yes 10mg Take 10 mg [facility] 10 mg 6-22 by mouth ity of tablet 00:00: daily. [address] predniSONE 2021-0 Yes 10mg Take 10 mg [facility] 10 mg 6-22 by mouth ity of tablet 00:00: daily. [address] predniSONE 2021-0 Yes 10mg Take 10 mg [facility] 10 mg 6-22 by mouth ity of tablet 00:00: daily. [address] predniSONE 2021-0 Yes 10mg Take 10 mg [facility] 10 mg 6-22 by mouth ity of tablet 00:00: daily. [address] predniSONE 2021-0 Yes 10mg Take 10 mg [facility] 10 mg 6-22 by mouth ity of tablet 00:00: daily. [address] predniSONE 2021-0 Yes 10mg Take 10 mg [facility] 10 mg 6-22 by mouth ity of tablet 00:00: daily. [address] predniSONE 2021-0 Yes 10mg Take 10 mg [facility] 10 mg 6-22 by mouth ity of tablet 00:00: daily. [address] predniSONE 2021-0 Yes 10mg Take 10 mg [facility] 10 mg 6-22 by mouth ity of tablet 00:00: daily. [place] [facility] predniSONE 2021-0 Yes 10mg Take 10 mg [facility] n[facility] 10 mg 6-22 by mouth ity of tablet 00:00: daily. [place] [facility] predniSONE 2021-0 Yes 10mg Take 10 mg [facility] n[facility] 10 mg 6-22 by mouth ity of tablet 00:00: daily. [place] [facility] predniSONE 2021-0 Yes 10mg Take 10 mg [facility] 10 mg 6-22 by mouth ity of tablet 00:00: daily. [place] [facility] predniSONE 2021-0 Yes 10mg Take 10 mg [facility] 10 mg 6-22 by mouth ity of tablet 00:00: daily. [place] [facility] predniSONE 2021-0 Yes 10mg Take 10 mg [facility] 10 mg 6-22 by mouth ity of tablet 00:00: daily. [place] [facility] predniSONE 2021-0 Yes 10mg Take 10 mg [facility] 10 mg 6-22 by mouth ity of tablet 00:00: daily. [place] [facility] predniSONE 2021-0 Yes 10mg Take 10 mg [facility] 10 mg 6-22 by mouth ity of tablet 00:00: daily. [place] [facility] predniSONE 2021-0 Yes 10mg Take 10 mg [facility] 10 mg 6-22 by mouth ity of tablet 00:00: daily. [place] [facility] predniSONE 2021-0 Yes 10mg Take 10 mg [facility] 10 mg 6-22 by mouth ity of tablet 00:00: daily. [place] [facility] predniSONE 2021-0 Yes 10mg Take 10 mg [facility] 10 mg 6-22 by mouth ity of tablet 00:00: daily. [place] [facility] predniSONE 2021-0 Yes 10mg Take 10 mg [facility] 10 mg 6-22 by mouth ity of tablet 00:00: daily. [address] predniSONE 2021-0 Yes 10mg Take 10 mg [facility] 10 mg 6-22 by mouth ity of tablet 00:00: daily. [place] [facility] predniSONE 2021-0 Yes 10mg Take 10 mg [facility] 10 mg 6-22 by mouth ity of tablet 00:00: daily. [address] predniSONE 2021-0 Yes 10mg Take 10 mg [facility] 10 mg 6-22 by mouth ity of tablet 00:00: daily. [address] predniSONE 2021-0 Yes 10mg Take 10 mg [facility] 10 mg 6-22 by mouth ity of tablet 00:00: daily. [address] Branch predniSONE 2021-0 Yes 10mg Take 10 mg [facility] 10 mg 6-22 by mouth ity of tablet 00:00: daily. [address] predniSONE 2021-0 Yes 10mg Take 10 mg [facility] 10 mg 6-22 by mouth ity of tablet 00:00: daily. [address] predniSONE 2021-0 Yes 10mg Take 10 mg [facility] 10 mg 6-22 by mouth ity of tablet 00:00: daily. [address] predniSONE 2021-0 Yes 10mg Take 10 mg [facility] 10 mg 6-22 by mouth ity of tablet 00:00: daily. [address] predniSONE 2021-0 Yes 10mg Take 10 mg [facility] 10 mg 6-22 by mouth ity of tablet 00:00: daily. [address] predniSONE 2021-0 Yes 10mg Take 10 mg [facility] 10 mg 6-22 by mouth ity of tablet 00:00: daily. [address] predniSONE 2021-0 Yes 10mg Take 10 mg [facility] 10 mg 6-22 by mouth ity of tablet 00:00: daily. [address] predniSONE 2021-0 Yes 10mg Take 10 mg [facility] 10 mg 6-22 by mouth ity of tablet 00:00: daily. [address] predniSONE 2021-0 Yes 10mg Take 10 mg [facility] 10 mg 6-22 by mouth ity of tablet 00:00: daily. [address] spironolact 2021-0 Yes 25mg Take 25 mg [place] one 6-08 by mouth. [place] (ALDACTONE) 00:00: of 25 MG 00 Medicin tablet e spironolact 2021-0 Yes 25mg Take 25 mg [place] one 6-08 by mouth. [place] (ALDACTONE) 00:00: of 25 MG 00 Medicin tablet e spironolact 2021-0 Yes 25mg Take 25 mg [place] one 6-08 by mouth. [place] (ALDACTONE) 00:00: of 25 MG 00 Medicin tablet e spironolact 2021-0 Yes 25mg Take 25 mg [facility] one 25 mg 6-08 by mouth ity of tablet 00:00: daily. [facility] spironolact 2020-0 Yes 25mg Take 25 mg [facility] one 25 mg 6-08 by mouth ity of tablet 00:00: daily. [place] [facility] spironolact 2020-0 Yes 25mg Take 25 mg [facility] one 25 mg 6-08 by mouth ity of tablet 00:00: daily. [place] [facility] spironolact 2020-0 Yes 25mg Take 25 mg [facility] one 25 mg 6-08 by mouth ity of tablet 00:00: daily. [place] [facility] spironolact 2020-0 Yes 25mg Take 25 mg [facility] one 25 mg 6-08 by mouth ity of tablet 00:00: daily. [place] [facility] spironolact 2020-0 Yes 25mg Take 25 mg [facility] one 25 mg 6-08 by mouth ity of tablet 00:00: daily. [place] [facility] spironolact 2020-0 Yes 25mg Take 25 mg [facility] one 25 mg 6-08 by mouth ity of tablet 00:00: daily. [place] [facility] spironolact 2020-0 Yes 25mg Take 25 mg [facility] one 25 mg 6-08 by mouth ity of tablet 00:00: daily. [place] [facility] spironolact 2020-0 Yes 25mg Take 25 mg [facility] one 25 mg 6-08 by mouth ity of tablet 00:00: daily. [place] [facility] spironolact 2020-0 Yes 25mg Take 25 mg [facility] one 25 mg 6-08 by mouth ity of tablet 00:00: daily. [place] [facility] spironolact 2020-0 Yes 25mg Take 25 mg [facility] one 25 mg 6-08 by mouth ity of tablet 00:00: daily. [place] [facility] spironolact 2020-0 Yes 25mg Take 25 mg [facility] one 25 mg 6-08 by mouth ity of tablet 00:00: daily. [place] [facility] spironolact 2020-0 Yes 25mg Take 25 mg [facility] one 25 mg 6-08 by mouth ity of tablet 00:00: daily. [place] [facility] spironolact 2020-0 Yes 25mg Take 25 mg [facility] one 25 mg 6-08 by mouth ity of tablet 00:00: daily. [place] [facility] spironolact 2020-0 Yes 25mg Take 25 mg [facility] one 25 mg 6-08 by mouth ity of tablet 00:00: daily. [place] [facility] spironolact 2020-0 Yes 25mg Take 25 mg [facility] one 25 mg 6-08 by mouth ity of tablet 00:00: daily. [place] [facility] spironolact 2020-0 Yes 25mg Take 25 mg [facility] one 25 mg 6-08 by mouth ity of tablet 00:00: daily. [place] [facility] spironolact 2020-0 Yes 25mg Take 25 mg [facility] one 25 mg 6-08 by mouth ity of tablet 00:00: daily. [place] [facility] spironolact 2020-0 Yes 25mg Take 25 mg [facility] one 25 mg 6-08 by mouth ity of tablet 00:00: daily. [place] [facility] spironolact 2020-0 Yes 25mg Take 25 mg [facility] one 25 mg 6-08 by mouth ity of tablet 00:00: daily. [place] [facility] spironolact 2020-0 Yes 25mg Take 25 mg [facility] one 25 mg 6-08 by mouth ity of tablet 00:00: daily. [place] [facility] spironolact 2020-0 Yes 25mg Take 25 mg [facility] one 25 mg 6-08 by mouth ity of tablet 00:00: daily. [place] [facility] spironolact 2020-0 Yes 25mg Take 25 mg [facility] one 25 mg 6-08 by mouth ity of tablet 00:00: daily. [place] [facility] spironolact 2020-0 Yes 25mg Take 25 mg [facility] one 25 mg 6-08 by mouth ity of tablet 00:00: daily. [place] [facility] spironolact 2020-0 Yes 25mg Take 25 mg [facility] one 25 mg 6-08 by mouth ity of tablet 00:00: daily. [place] [facility] spironolact 2020-0 Yes 25mg Take 25 mg [facility] one 25 mg 6-08 by mouth ity of tablet 00:00: daily. [address] spironolact 2020-0 Yes 25mg Take 25 mg [facility] one 25 mg 6-08 by mouth ity of tablet 00:00: daily. [address] spironolact 2020-0 Yes 25mg Take 25 mg [facility] one 25 mg 6-08 by mouth ity of tablet 00:00: daily. [place] [facility] spironolact 2021-0 Yes 25mg Take 25 mg [facility] one 25 mg 6-08 by mouth ity of tablet 00:00: daily. [place] [facility] spironolact 2020-0 Yes 25mg Take 25 mg [facility] one 25 mg 6-08 by mouth ity of tablet 00:00: daily. [place] [facility] spironolact 2020-0 Yes 25mg Take 25 mg [facility] one 25 mg 6-08 by mouth ity of tablet 00:00: daily. [place] [facility] spironolact 2020-0 Yes 25mg Take 25 mg [facility] one 25 mg 6-08 by mouth ity of tablet 00:00: daily. [place] [facility] spironolact 2020-0 Yes 25mg Take 25 mg [facility] one 25 mg 6-08 by mouth ity of tablet 00:00: daily. [place] [facility] spironolact 2020-0 Yes 25mg Take 25 mg [facility] one 25 mg 6-08 by mouth ity of tablet 00:00: daily. [place] [facility] spironolact 2020-0 Yes 25mg Take 25 mg [facility] one 25 mg 6-08 by mouth ity of tablet 00:00: daily. [place] [facility] spironolact 2020-0 Yes 25mg Take 25 mg [facility] one 25 mg 6-08 by mouth ity of tablet 00:00: daily. [place] [facility] spironolact 2020-0 Yes 25mg Take 25 mg [facility] one 25 mg 6-08 by mouth ity of tablet 00:00: daily. [place] [facility] spironolact 2020-0 Yes 25mg Take 25 mg [facility] one 25 mg 6-08 by mouth ity of tablet 00:00: daily. [place] [facility] spironolact 1-0 Yes 25mg Take 25 mg [facility] one 25 mg 6-08 by mouth ity of tablet 00:00: daily. [place] [facility] spironolact 1-0 Yes 25mg Take 25 mg [facility] one 25 mg 6-08 by mouth ity of tablet 00:00: daily. [place] [facility] spironolact 1-0 Yes 25mg Take 25 mg [facility] one 25 mg 6-08 by mouth ity of tablet 00:00: daily. [place] [facility] spironolact 2021-0 Yes 25mg Take 25 mg [facility] one 25 mg 6-08 by mouth ity of tablet 00:00: daily. [place] [facility] spironolact 2020-0 Yes 25mg Take 25 mg [facility] one 25 mg 6-08 by mouth ity of tablet 00:00: daily. [place] [facility] spironolact 2020-0 Yes 25mg Take 25 mg [facility] one 25 mg 6-08 by mouth ity of tablet 00:00: daily. [place] [facility] spironolact 2020-0 Yes 25mg Take 25 mg [facility] one 25 mg 6-08 by mouth ity of tablet 00:00: daily. [place] [facility] spironolact 2020-0 Yes 25mg Take 25 mg [facility] one 25 mg 6-08 by mouth ity of tablet 00:00: daily. [place] [facility] spironolact 2020-0 Yes 25mg Take 25 mg [facility] one 25 mg 6-08 by mouth ity of tablet 00:00: daily. [place] [facility] spironolact 2020-0 Yes 25mg Take 25 mg [facility] one 25 mg 6-08 by mouth ity of tablet 00:00: daily. [place] [facility] spironolact 2020-0 Yes 25mg Take 25 mg [facility] one 25 mg 6-08 by mouth ity of tablet 00:00: daily. [place] [facility] Neomycin-Po 2020-0 Yes 3[drp] Place 3 [facility] lymyxin-HC 4-14 Drops in [place] [id number] 00:00: ear(s). of SUSP 00 Medicin e Neomycin-Po 2020-0 Yes 3[drp] Place 3 [facility] lymyxin-HC 4-14 Drops in Col[place] ge [id number] 00:00: ear(s). of SUSP 00 Medicin e Neomycin-Po 2020-0 Yes 3[drp] Place 3 [place] lymyxin-HC 4-14 Drops in Colle ge [id number] 00:00: ear(s). of SUSP Medicin e neomycin-po Yes [id number] 3[drp] Place 3 [facility] lymyxin-hyd 4-14 Drops in ity of rocortisone 00:00: left ear 4 [place] 3.5-,000- 00 (four) Medica l 1 times Branch mg/mL-unit/ daily. mL-% otic susp neomycin-po 2021-0 Yes [id number] 3[drp] Place 3 [facility] lymyxin-hyd 4-14 Drops in ity of rocortisone 00:00: left ear 4 [place] 3.5-10000- 00 (four) Medica l 1 times Branch mg/mL-unit/ daily. mL-% otic susp neomycin-po 2021-0 Yes [id number] 3[drp] Place 3 [facility] lymyxin-hyd 4-14 Drops in ity of rocortisone 00:00: left ear 4 [place] 3.5-000- (four) Medica l 1 times Branch mg/mL-unit/ daily. mL-% otic susp neomycin-po 2021-0 Yes [id number] 3[drp] Place 3 [facility] lymyxin-hyd 4-14 Drops in ity of rocortisone 00:00: left ear 4 [place] 3.5- (four) Medica l 1 times Branch mg/mL-unit/ daily. mL-% otic susp neomycin-po 2021-0 Yes [id number] 3[drp] Place 3 [facility] lymyxin-hyd 4-14 Drops in ity of rocortisone 00:00: left ear 4 [place] 3.5-000 00 (four) Medica l 1 times Branch mg/mL-unit/ daily. mL-% otic susp neomycin-po 2021-0 Yes [id number] 3[drp] Place 3 [facility] lymyxin-hyd 4-14 Drops in ity of rocortisone 00:00: left ear 4 [place] 3.5-000 (four) Medica l 1 times Branch mg/mL-unit/ daily. mL-% otic susp neomycin-po 2021-0 Yes [id number] 3[drp] Place 3 [facility] lymyxin-hyd 4-14 Drops in ity of rocortisone 00:00: left ear 4 [place] 3.5-000- 00 (four) Medica l 1 times Branch mg/mL-unit/ daily. mL-% otic susp neomycin-po 2021-0 Yes [id number] 3[drp] Place 3 [facility] lymyxin-hyd 4-14 Drops in ity of rocortisone 00:00: left ear 4 [place] 3.5-000- 00 (four) Medica l 1 times Branch mg/mL-unit/ daily. mL-% otic susp neomycin-po 2021-0 Yes [id number] 3[drp] Place 3 [facility] lymyxin-hyd 4-14 Drops in ity of rocortisone 00:00: left ear 4 [place] 3.5-000- 00 (four) Medica l 1 times Branch mg/mL-unit/ daily. mL-% otic susp neomycin-po 2021-0 Yes [id number] 3[drp] Place 3 [facility] lymyxin-hyd 4-14 Drops in ity of rocortisone 00:00: left ear 4 [place] 3.5-000 (four) Medica l 1 times Branch mg/mL-unit/ daily. mL-% otic susp neomycin-po 2021-0 Yes [id number] 3[drp] Place 3 [facility] lymyxin-hyd 4-14 Drops in ity of rocortisone 00:00: left ear 4 [place] 3.5- (four) Medica l 1 times Branch mg/mL-unit/ daily. mL-% otic susp neomycin-po 2021-0 Yes [id number] 3[drp] Place 3 [facility] lymyxin-hyd 4-14 Drops in ity of rocortisone 00:00: left ear 4 [place] 3.5-,000- 00 (four) Medica l 1 times Branch mg/mL-unit/ daily. mL-% otic susp neomycin-po 2021-0 Yes [id number] 3[drp] Place 3 [facility] lymyxin-hyd 4-14 Drops in ity of rocortisone 00:00: left ear 4 [place] 3.5-10,000 00 (four) Medica l 1 times Branch mg/mL-unit/ daily. mL-% otic susp neomycin-po 2021-0 Yes [id number] 3[drp] Place 3 [facility] lymyxin-hyd 4-14 Drops in ity of rocortisone 00:00: left ear 4 [place] 3.5-,000- 00 (four) Medica l 1 times Branch mg/mL-unit/ daily. mL-% otic susp neomycin-po 2021-0 Yes [id number] 3[drp] Place 3 [facility] lymyxin-hyd 4-14 Drops in ity of rocortisone 00:00: left ear 4 [place] 3.5-10,000- 00 (four) Medica l 1 times Branch mg/mL-unit/ daily. mL-% otic susp neomycin-po 2021-0 Yes [id number] 3[drp] Place 3 [facility] lymyxin-hyd 4-14 Drops in ity of rocortisone 00:00: left ear 4 [place] 3.5-10,000- 00 (four) Medica l 1 times Branch mg/mL-unit/ daily. mL-% otic susp neomycin-po 2021-0 Yes [id number] 3[drp] Place 3 [facility] lymyxin-hyd 4-14 Drops in ity of rocortisone 00:00: left ear 4 [place] 3.5-10,000- 00 (four) Medica l 1 times Branch mg/mL-unit/ daily. mL-% otic susp neomycin-po 2021-0 Yes [id number] 3[drp] Place 3 [facility] lymyxin-hyd 4-14 Drops in ity of rocortisone 00:00: left ear 4 [place] 3.5-10,000- 00 (four) Medica l 1 times Branch mg/mL-unit/ daily. mL-% otic susp neomycin-po 2021-0 Yes [id number] 3[drp] Place 3 [facility] lymyxin-hyd 4-14 Drops in ity of rocortisone 00:00: left ear 4 [place] 3.5-10,000- 00 (four) Medica l 1 times Branch mg/mL-unit/ daily. mL-% otic susp neomycin-po 2021-0 Yes [id number] 3[drp] Place 3 [facility] lymyxin-hyd 4-14 Drops in ity of rocortisone 00:00: left ear 4 [place] 3.5-10,000- 00 (four) Medica l 1 times Branch mg/mL-unit/ daily. mL-% otic susp neomycin-po 2021-0 Yes [id number] 3[drp] Place 3 [facility] lymyxin-hyd 4-14 Drops in ity of rocortisone 00:00: left ear 4 [place] 3.5-10,000- 00 (four) Medica l 1 times Branch mg/mL-unit/ daily. mL-% otic susp neomycin-po 2021-0 Yes [id number] 3[drp] Place 3 [facility] lymyxin-hyd 4-14 Drops in ity of rocortisone 00:00: left ear 4 [place] 3.5-10,000- 00 (four) Medica l 1 times Branch mg/mL-unit/ daily. mL-% otic susp neomycin-po 2021-0 Yes [id number] 3[drp] Place 3 [facility] lymyxin-hyd 4-14 Drops in ity of rocortisone 00:00: left ear 4 [place] 3.5-10,000- 00 (four) Medica l 1 times Branch mg/mL-unit/ daily. mL-% otic susp neomycin-po 2021-0 Yes [id number] 3[drp] Place 3 [facility] lymyxin-hyd 4-14 Drops in ity of rocortisone 00:00: left ear 4 [place] 3.5-000- (four) Medica l 1 times Branch mg/mL-unit/ daily. mL-% otic susp neomycin-po 2021-0 Yes [id number] 3[drp] Place 3 [facility] lymyxin-hyd 4-14 Drops in ity of rocortisone 00:00: left ear 4 [place] 3.5-,000- (four) Medica l 1 times Branch mg/mL-unit/ daily. mL-% otic susp neomycin-po 2021-0 Yes [id number] 3[drp] Place 3 [facility] lymyxin-hyd 4-14 Drops in ity of rocortisone 00:00: left ear 4 [place] 3.5-000- (four) Medica l 1 times Branch mg/mL-unit/ daily. mL-% otic susp neomycin-po 2021-0 Yes [id number] 3[drp] Place 3 [facility] lymyxin-hyd 4-14 Drops in ity of rocortisone 00:00: left ear 4 [place] 3.5-10,000- 00 (four) Medica l 1 times Branch mg/mL-unit/ daily. mL-% otic susp neomycin-po 2021-0 Yes [id number] 3[drp] Place 3 [facility] lymyxin-hyd 4-14 Drops in ity of rocortisone 00:00: left ear 4 [place] 3.5-10,000- 00 (four) Medica l 1 times Branch mg/mL-unit/ daily. mL-% otic susp neomycin-po 2021-0 Yes [id number] 3[drp] Place 3 [facility] lymyxin-hyd 4-14 Drops in ity of rocortisone 00:00: left ear 4 [place] 3.5-10,000- 00 (four) Medica l 1 times Branch mg/mL-unit/ daily. mL-% otic susp neomycin-po 2021-0 Yes [id number] 3[drp] Place 3 [facility] lymyxin-hyd 4-14 Drops in ity of rocortisone 00:00: left ear 4 [place] 3.5-000- 00 (four) Medica l 1 times Branch mg/mL-unit/ daily. mL-% otic susp neomycin-po 2021-0 Yes [id number] 3[drp] Place 3 [facility] lymyxin-hyd 4-14 Drops in ity of rocortisone 00:00: left ear 4 [place] 3.5-000 (four) Medica l 1 times Branch mg/mL-unit/ daily. mL-% otic susp neomycin-po 2021-0 Yes [id number] 3[drp] Place 3 [facility] lymyxin-hyd 4-14 Drops in ity of rocortisone 00:00: left ear 4 [place] 3.5-10,000- 00 (four) Medica l 1 times Branch mg/mL-unit/ daily. mL-% otic susp neomycin-po 2021-0 Yes [id number] 3[drp] Place 3 [facility] lymyxin-hyd 4-14 Drops in ity of rocortisone 00:00: left ear 4 [place] 3.5-10,000- 00 (four) Medica l 1 times Branch mg/mL-unit/ daily. mL-% otic susp neomycin-po 2021-0 Yes [id number] 3[drp] Place 3 [facility] lymyxin-hyd 4-14 Drops in ity of rocortisone 00:00: left ear 4 [place] 3.5-10,000- 00 (four) Medica l 1 times Branch mg/mL-unit/ daily. mL-% otic susp neomycin-po 2021-0 Yes [id number] 3[drp] Place 3 [facility] lymyxin-hyd 4-14 Drops in ity of rocortisone 00:00: left ear 4 [place] 3.5-10,000- 00 (four) Medica l 1 times Branch mg/mL-unit/ daily. mL-% otic susp neomycin-po 202-0 Yes [id number] 3[drp] Place 3 [facility] lymyxin-hyd 4-14 Drops in ity of rocortisone 00:00: left ear 4 [place] 3.5-10,000- 00 (four) Medica l 1 times Branch mg/mL-unit/ daily. mL-% otic susp neomycin-po 2020-0 Yes [id number] 3[drp] Place 3 [facility] lymyxin-hyd 4-14 Drops in ity of rocortisone 00:00: left ear 4 [place] 3.5-,000- 00 (four) Medica l 1 times Branch mg/mL-unit/ daily. mL-% otic susp neomycin-po 2021-0 2022- No [id number] 3[drp] Place 3 [facility] lymyxin-hyd 4-14 12-21 Drops in ity of rocortisone 00:00: 00:00 left ear 4 [place] 3.5-,000- 00 :00 (four) Medica l 1 times Branch mg/mL-unit/ daily. mL-% otic susp neomycin-po 1-0 2- No [id number] 3[drp] Place 3 [facility] lymyxin-hyd 4-14 12-21 Drops in ity of rocortisone 00:00: 00:00 left ear 4 [place] 3.5-10,000- 00 :00 (four) Medica l 1 times Branch mg/mL-unit/ daily. mL-% otic susp TRELEGY 2020-1 Yes INHALE 1 Univer s [...] mcg DsDv 00 EVERY DAY [facility] [place] TRELEGY 2020-1 Yes INHALE 1 Univer s ELLIPTA 2-24 PUFF BY ity of 100-62.5-25 00:00: MOUTH [place] mcg DsDv 00 EVERY DAY [facility] [place] TRELEGY 2020- Yes INHALE 1 Univer s ELLIPTA 2-24 PUFF BY ity of 100-62.5-25 00:00: MOUTH [place] mcg DsDv 00 EVERY DAY [facility] [place] TRELEGY 2020- Yes INHALE 1 Univer s ELLIPTA 2-24 PUFF BY ity of 100-62.5-25 00:00: MOUTH [place] mcg DsDv 00 EVERY DAY [facility] [place] TRELEGY 2019- Yes INHALE 1 Univer s ELLIPTA 2-24 PUFF BY ity of 100-62.5-25 00:00: MOUTH [place] mcg DsDv 00 EVERY DAY [facility] [place] TRELEGY 2020- Yes INHALE 1 Univer s ELLIPTA 2-24 PUFF BY ity of 100-62.5-25 00:00: MOUTH [place] mcg DsDv 00 EVERY DAY [facility] [place] TRELEGY 2020- Yes INHALE 1 Univer s ELLIPTA 2-24 PUFF BY ity of 100-62.5-25 00:00: MOUTH [place] mcg DsDv 00 EVERY DAY [facility] [place] TRELEGY 2020- Yes INHALE 1 Univer s ELLIPTA 2-24 PUFF BY ity of 100-62.5-25 00:00: MOUTH [place] mcg DsDv 00 EVERY DAY [facility] [place] TRELEGY 2020- Yes INHALE 1 Univer s ELLIPTA 2-24 PUFF BY ity of 100-62.5-25 00:00: MOUTH [place] mcg DsDv 00 EVERY DAY [facility] [place] TRELEGY 2020- Yes INHALE 1 Univer s ELLIPTA 2-24 PUFF BY ity of 100-62.5-25 00:00: MOUTH [place] mcg DsDv 00 EVERY DAY [facility] [place] TRELEGY 2020-1 Yes INHALE 1 Univer s [...] mcg DsDv 00 EVERY DAY [facility] [place] TRELEGY 2020- Yes INHALE 1 Univer s [...] mcg DsDv 00 EVERY DAY [facility] [place] TRELEGY 2019- Yes INHALE 1 Univer s [...] mcg DsDv 00 EVERY DAY [facility] [place] TRELEGY 2019- Yes INHALE 1 Univer s ELLIPTA 2-24 PUFF BY ity of 100-62.5-25 00:00: MOUTH [place] [facility] ELLIPTA 2-24 PUFF BY ity of 100-62.5-25 00:00: MOUTH [place] mcg DsDv 00 EVERY DAY [facility] [place] TRELEGY 2019- Yes INHALE 1 Univer s ELLIPTA 2-24 PUFF BY ity of 100-62.5-25 00:00: MOUTH [place] mcg DsDv [facility] ELLIPTA 2-24 PUFF BY ity of 100-62.5-25 00:00: MOUTH [place] mcg DsDv 00 [facility] ELLIPTA 2-24 PUFF BY ity of 100-62.5-25 00:00: MOUTH [place] mcg DsDv 00 [facility] Univer s ELLIPTA 2-24 PUFF BY ity of 100-62.5-25 00:00: MOUTH [place] mcg DsDv 00 [facility] Univer s ELLIPTA 2-24 PUFF BY ity of 100-62.5-25 00:00: MOUTH [place] mcg DsDv 00 EVERY DAY [facility] [place] TRELEGY 2019- Yes INHALE 1 Univer s ELLIPTA 2-24 PUFF BY ity of 100-62.5-25 00:00: MOUTH [place] mcg DsDv 00 EVERY DAY [facility] [place] TRELEGY 2019- Yes INHALE 1 Univer s ELLIPTA 2-24 PUFF BY ity of 100-62.5-25 00:00: MOUTH [place] mcg DsDv 00 EVERY DAY [facility] [place] TRELEGY 2020- Yes INHALE 1 Univer s [...] by mouth ity of 00:00: at bedtime [place] 00 as needed. Medical Branch zolpidem 10 2019-11 Yes 10mg Take 10 mg [facility] mg tablet 2-14 by mouth ity of 00:00: at bedtime [place] 00 as needed. Medical Branch zolpidem 10 2019-11 Yes 10mg Take 10 mg [facility] mg tablet 2-14 by mouth ity of 00:00: at bedtime [place] 00 as needed. Medical Branch zolpidem 10 2019-11 Yes 10mg Take 10 mg [facility] mg tablet 2-14 by mouth ity of 00:00: at bedtime [place] 00 as needed. Medical Branch zolpidem 10 2019-11 Yes 10mg Take 10 mg [facility] mg tablet 2-14 by mouth ity of 00:00: at bedtime [place] 00 as needed. Medical Branch zolpidem 10 2019-11 Yes 10mg Take 10 mg [facility] mg tablet 2-14 by mouth ity of 00:00: at bedtime [place] 00 as needed. Medical Branch zolpidem 10 2019-11 Yes 10mg Take 10 mg [facility] mg tablet 2-14 by mouth ity of 00:00: at bedtime [place] 00 as needed. Medical Branch zolpidem 10 [...] by mouth ity of 00:00: at bedtime [place] 00 as needed. Medical [facility] zolpidem 10 2019-11 Yes 10mg Take 10 mg [facility] mg tablet 2-14 by mouth ity of 00:00: at bedtime [place] 00 as needed. Medical Branch zolpidem 10 2019-11 Yes 10mg Take 10 mg [facility] mg tablet 2-14 by mouth ity of 00:00: at bedtime [place] 00 as needed. Medical Branch zolpidem 10 2019-11 Yes 10mg Take 10 mg [facility] mg tablet 2-14 by mouth ity of 00:00: at bedtime [place] 00 as needed. Medical Branch zolpidem 10 2019-11 Yes 10mg Take 10 mg [facility] mg tablet 2-14 by mouth ity of 00:00: at bedtime [place] 00 as needed. Medical Branch zolpidem 10 2019-11 Yes 10mg Take 10 mg [facility] mg tablet 2-14 by mouth ity of 00:00: at bedtime [place] 00 as needed. Medical Branch zolpidem 10 2019-11 Yes 10mg Take 10 mg [facility] mg tablet 2-14 by mouth ity of 00:00: at bedtime [place] 00 as needed. Medical Branch zolpidem 10 2019-11 Yes 10mg Take 10 mg [facility] mg tablet 2-14 by mouth ity of 00:00: at bedtime [place] 00 as needed. Medical Branch zolpidem 10 2019-11 Yes 10mg Take 10 mg [facility] mg tablet 2-14 by mouth ity of 00:00: at bedtime [place] 00 as needed. Medical Branch zolpidem 10 2019-11 Yes 10mg Take 10 mg [facility] mg tablet 2-14 by mouth ity of 00:00: at bedtime [place] 00 as needed. Medical Branch zolpidem 10 [...] bedtime [place] 00 as needed. Medical Branch dicyclomine 2019- Yes TK 1 C [...] vers tablet 1-12 D ity of 00:00: [place] 00 [facility] MOTEGRITY 2020- Yes TK 1 T PO Uni vers tablet 1-12 D ity of 00:00: [place] [facility] MOTEGRITY 2020- Yes TK 1 T PO Uni vers tablet 1-12 D ity of 00:00: [place] [facility] MOTEGRITY 2020- Yes TK 1 T PO Uni vers tablet 1-12 D ity of 00:00: [place] [facility] MOTEGRITY 2020- Yes TK 1 T PO Uni vers tablet 1-12 D ity of 00:00: [place] [facility] MOTEGRITY 2020- Yes TK 1 T PO Uni vers tablet 1-12 D ity of 00:00: [place] [facility] MOTEGRITY 2020- Yes TK 1 T PO Uni vers tablet 1-12 D ity of 00:00: [place] [facility] MOTEGRITY 2020- Yes TK 1 T PO Uni vers tablet 1-12 D ity of 00:00: [place] [facility] MOTEGRITY 2020- Yes TK 1 T PO Uni vers tablet 1-12 D ity of 00:00: [place] [facility] MOTEGRITY 2020- Yes TK 1 T PO Uni vers tablet 1-12 D ity of 00:00: [place] 00 [facility] MOTEGRITY 2020- Yes TK 1 T PO Uni vers tablet 1-12 D ity of 00:00: [place] [facility] MOTEGRITY 2020- Yes TK 1 T PO Uni vers tablet 1-12 D ity of 00:00: [place] [facility] MOTEGRITY 2020- Yes TK 1 T PO Uni vers tablet 1-12 D ity of 00:00: [place] 00 [facility] MOTEGRITY 2020- Yes TK 1 T PO Uni vers tablet 1-12 D ity of 00:00: [place] 00 [facility] MOTEGRITY 2020- Yes TK 1 T PO Uni vers tablet 1-12 D ity of 00:00: [place] 00 [facility] MOTEGRITY 2020- Yes TK 1 T PO Uni vers tablet 1-12 D ity of 00:00: [place] 00 [facility] MOTEGRITY 2020- Yes TK 1 T PO Uni vers tablet 1-12 D ity of 00:00: [place] 00 [facility] MOTEGRITY 2020- Yes TK 1 T PO Uni vers tablet 1-12 D ity of 00:00: [place] [facility] MOTEGRITY 2020- Yes TK 1 T PO Uni vers tablet 1-12 D ity of 00:00: [place] [facility] MOTEGRITY 2020- Yes TK 1 T PO Uni vers tablet 1-12 D ity of 00:00: [place] [facility] MOTEGRITY 2020- Yes TK 1 T PO Uni vers tablet 1-12 D ity of 00:00: [place] [facility] MOTEGRITY 2020- Yes TK 1 T PO Uni vers tablet 1-12 D ity of 00:00: [place] [facility] MOTEGRITY 2020- Yes TK 1 T PO Uni vers tablet 1-12 D ity of 00:00: [place] [facility] MOTEGRITY 2020- Yes TK 1 T PO Uni vers tablet 1-12 D ity of 00:00: [place] [facility] MOTEGRITY 2020- Yes TK 1 T PO Uni vers tablet 1-12 D ity of 00:00: [place] [facility] MOTEGRITY 2020- Yes TK 1 T PO Uni vers tablet 1-12 D ity of 00:00: [place] [facility] MOTEGRITY 2020- Yes TK 1 T PO Uni vers tablet 1-12 D ity of 00:00: [place] [facility] MOTEGRITY 2020- Yes TK 1 T PO Uni vers tablet 1-12 D ity of 00:00: [place] [facility] MOTEGRITY 2020- Yes TK 1 T PO Uni vers tablet 1-12 D ity of 00:00: [place] [facility] MOTEGRITY 2020- Yes TK 1 T PO Uni vers tablet 1-12 D ity of 00:00: [place] 00 [facility] MOTEGRITY 2020- Yes TK 1 T PO Uni vers tablet 1-12 D ity of 00:00: [place] 00 [facility] MOTEGRITY 2020- Yes TK 1 T PO Uni vers tablet 1-12 D ity of 00:00: [place] 00 [facility] MOTEGRITY 2020- Yes TK 1 T PO Uni vers tablet 1-12 D ity of 00:00: [place] [facility] MOTEGRITY 2020-1 Yes TK 1 T PO Uni vers tablet 1-12 D ity of 00:00: [place] 00 [facility] MOTEGRITY 2020-1 Yes TK [...] D ity of 00:00: 00 Medical Branch ondansetron 2020- Yes as needed. [...] 1-04 ity of 00:00: Medical Branch diclofenac 2020- Yes [id number] 75mg Take 1 [facility] 75 mg EC 0-08 tablet by ity of tablet 00:00: mouth 2 (two) Medical times Branch daily with meals. diclofenac 2019-11 Yes [id number] 75mg Take 1 [facility] 75 mg EC 0-08 tablet by ity of tablet 00:00: mouth [place] (two) Medical times Branch daily with meals. diclofenac 2019-11 Yes [id number] 75mg Take 1 [facility] 75 mg EC 0-08 tablet by ity of tablet 00:00: mouth [place] (two) Medical times Branch daily with meals. diclofenac 2019-11 Yes [id number] 75mg Take 1 [facility] 75 mg EC 0-08 tablet by ity of tablet 00:00: mouth 2 [place] (two) Medical times Branch daily with meals. diclofenac 2019- Yes [id number] 75mg Take 1 [facility] 75 mg EC 0-08 tablet by ity of tablet 00:00: mouth 2 (two) Medical times Branch daily with meals. diclofenac 2020- Yes [id number] 75mg Take 1 [facility] 75 mg EC 0-08 tablet by ity of tablet 00:00: mouth 2 [place] (two) Medical times Branch daily with meals. diclofenac 2020- Yes [id number] 75mg Take 1 [facility] 75 mg EC 0-08 tablet by ity of tablet 00:00: mouth 2 [place] (two) Medical times Branch daily with meals. diclofenac 2020- Yes [id number] 75mg Take 1 [facility] 75 mg EC 0-08 tablet by ity of tablet 00:00: mouth (two) Medical times Branch daily with meals. diclofenac 2020- Yes [id number] 75mg Take 1 [facility] 75 mg EC 0-08 tablet by ity of tablet 00:00: mouth (two) Medical times Branch daily with meals. diclofenac 2020-1 Yes [id number] 75mg Take 1 [facility] 75 mg EC 0-08 tablet by ity of tablet 00:00: mouth (two) Medical times Branch daily with meals. diclofenac 2020-1 Yes [id number] 75mg Take 1 [facility] 75 mg EC 0-08 tablet by ity of tablet 00:00: mouth (two) Medical times Branch daily with meals. diclofenac 2020-1 Yes [id number] 75mg Take 1 [facility] 75 mg EC 0-08 tablet by ity of tablet 00:00: mouth (two) Medical times Branch daily with meals. diclofenac 2020- Yes [id number] 75mg Take 1 [facility] 75 mg EC 0-08 tablet by ity of tablet 00:00: mouth (two) Medical times Branch daily with meals. diclofenac 2020- Yes [id number] 75mg Take 1 [facility] 75 mg EC 0-08 tablet by ity of tablet 00:00: mouth (two) Medical times Branch daily with meals. diclofenac 2020-1 Yes [id number] 75mg Take 1 [facility] 75 mg EC 0-08 tablet by ity of tablet 00:00: mouth (two) Medical times Branch daily with meals. diclofenac 2019-1 Yes [id number] 75mg Take 1 [facility] 75 mg EC 0-08 tablet by ity of tablet 00:00: mouth (two) Medical times Branch daily with meals. diclofenac 2020-1 Yes [id number] 75mg Take 1 [facility] 75 mg EC 0-08 tablet by ity of tablet 00:00: mouth (two) Medical times Branch daily with meals. diclofenac 2020-1 Yes [id number] 75mg Take 1 [facility] 75 mg EC 0-08 tablet by ity of tablet 00:00: mouth (two) Medical times Branch daily with meals. diclofenac 2020-1 Yes [id number] 75mg Take 1 [facility] 75 mg EC 0-08 tablet by ity of tablet 00:00: mouth (two) Medical times Branch daily with meals. diclofenac 2020-1 Yes [id number] 75mg Take 1 [facility] 75 mg EC 0-08 tablet by ity of tablet 00:00: mouth 2 00 (two) Medical times Branch daily with meals. diclofenac 2019-11 Yes [id number] 75mg Take 1 [facility] 75 mg EC 0-08 tablet by ity of tablet 00:00: mouth 2 [place] (two) Medical times Branch daily with meals. diclofenac 2019-11 Yes [id number] 75mg Take 1 [facility] 75 mg EC 0-08 tablet by ity of tablet 00:00: mouth 2 [place] (two) Medical times Branch daily with meals. diclofenac 2019-11- No [id number] 75mg Take 1 [facility] 75 mg EC 0-08 10-25 tablet by ity o f tablet 00:00: 00:00 mouth 2 [place] 00 :00 (two) Medical times Branch daily with meals. diclofenac 2019-11- No [id number] 75mg Take 1 [facility] 75 mg EC 0-08 10-25 tablet by ity o f tablet 00:00: 00:00 [facility] 2 [place] 00 :00 (two) Medical times Branch daily with meals. CLONIDINE 2020-0 Yes [id number] TAKE 1 Un ally 0.2 mg 8-06 TABLET BY ity of tablet 00:00: MOUTH 00 THREE Medical TIMES Branch DAILY CLONIDINE 2020-0 Yes [id number] TAKE 1 Un ally 0.2 mg 8-06 TABLET BY ity of tablet 00:00: MOUTH THREE Medical TIMES Branch DAILY CLONIDINE 2020-0 Yes [id number] TAKE 1 Un ally 0.2 mg 8-06 TABLET BY ity of tablet 00:00: MOUTH [place] THREE Medical TIMES Branch DAILY CLONIDINE 2020-0 Yes [id number] TAKE 1 Un ally 0.2 mg 8-06 TABLET BY ity of tablet 00:00: MOUTH 00 THREE Medical TIMES Branch DAILY CLONIDINE 2020-0 Yes [id number] TAKE 1 Un ally 0.2 mg 8-06 TABLET BY ity of tablet 00:00: MOUTH [place] 00 THREE Medical TIMES Branch DAILY CLONIDINE 2020-0 Yes [id number] TAKE 1 Un ally 0.2 mg 8-06 TABLET BY ity of tablet 00:00: MOUTH 00 THREE Medical TIMES Branch DAILY CLONIDINE 2020-0 Yes [id number] TAKE 1 Un ally 0.2 mg 8-06 TABLET BY ity of tablet 00:00: MOUTH [place] 00 THREE Medical TIMES Branch DAILY CLONIDINE 2020-0 Yes [id number] TAKE 1 Un ally 0.2 mg 8-06 TABLET BY ity of tablet 00:00: THREE Medical TIMES Branch DAILY CLONIDINE 2020-0 Yes [id number] TAKE 1 Un ally 0.2 mg 8-06 TABLET BY ity of tablet 00:00: THREE Medical TIMES Branch DAILY CLONIDINE 2020-0 Yes [id number] TAKE 1 Un ally 0.2 mg 8-06 TABLET BY ity of tablet 00:00: THREE Medical TIMES Branch DAILY CLONIDINE 2020-0 Yes [id number] TAKE 1 Un ally 0.2 mg 8-06 TABLET BY ity of tablet 00:00: THREE Medical TIMES Branch DAILY CLONIDINE 2020-0 Yes [id number] TAKE 1 Un ally 0.2 mg 8-06 TABLET BY ity of tablet 00:00: THREE Medical TIMES Branch DAILY CLONIDINE 2020-0 Yes [id number] TAKE 1 Un ally 0.2 mg 8-06 TABLET BY ity of tablet 00:00: THREE Medical TIMES Branch DAILY CLONIDINE 2020-0 Yes [id number] TAKE 1 Un ally 0.2 mg 8-06 TABLET BY ity of tablet 00:00: THREE Medical TIMES Branch DAILY CLONIDINE 2020-0 Yes [id number] TAKE 1 Un ally 0.2 mg 8-06 TABLET BY ity of tablet 00:00: THREE Medical TIMES Branch DAILY CLONIDINE 2020-0 Yes [id number] TAKE 1 Un ally 0.2 mg 8-06 TABLET BY ity of tablet 00:00: THREE Medical TIMES Branch DAILY CLONIDINE 2020-0 Yes [id number] TAKE 1 Un ally 0.2 mg 8-06 TABLET BY ity of tablet 00:00: THREE Medical TIMES Branch DAILY CLONIDINE 2020-0 Yes [id number] TAKE 1 Un ally 0.2 mg 8-06 TABLET BY ity of tablet 00:00: THREE Medical TIMES Branch DAILY CLONIDINE 2020-0 Yes [id number] TAKE 1 Un ally 0.2 mg 8-06 TABLET BY ity of tablet 00:00: THREE Medical TIMES Branch DAILY CLONIDINE 2020-0 Yes [id number] TAKE 1 Un ally 0.2 mg 8-06 TABLET BY ity of tablet 00:00: THREE Medical TIMES Branch DAILY CLONIDINE 2020-0 Yes [id number] TAKE 1 Un ally 0.2 mg 8-06 TABLET BY ity of tablet 00:00: MOUTH THREE Medical TIMES Branch DAILY CLONIDINE 2020-0 Yes [id number] TAKE 1 Un ally 0.2 mg 8-06 TABLET BY ity of tablet 00:00: MOUTH THREE Medical TIMES Branch DAILY CLONIDINE 2020-0 Yes [id number] TAKE 1 Un ally 0.2 mg 8-06 TABLET BY ity of tablet 00:00: MOUTH THREE Medical TIMES Branch DAILY CLONIDINE 2020-0 Yes [id number] TAKE 1 Un ally 0.2 mg 8-06 TABLET BY ity of tablet 00:00: MOUTH THREE Medical TIMES Branch DAILY CLONIDINE 2020-0 Yes [id number] TAKE 1 [facility] ally 0.2 mg 8-06 TABLET BY ity of tablet 00:00: MOUTH THREE Medical TIMES Branch DAILY CLONIDINE 2020-0 Yes [id number] TAKE 1 [facility] ally 0.2 mg 8-06 TABLET BY ity of tablet 00:00: MOUTH THREE Medical TIMES Branch DAILY CLONIDINE 2020-0 Yes [id number] TAKE 1 [facility] ally 0.2 mg 8-06 TABLET BY ity of tablet 00:00: MOUTH THREE Medical TIMES Branch DAILY CLONIDINE 2020-0 Yes [id number] TAKE 1 Un ally 0.2 mg 8-06 TABLET BY ity of tablet 00:00: MOUTH THREE Medical TIMES Branch DAILY CLONIDINE 2020-0 Yes [id number] TAKE 1 Un ally 0.2 mg 8-06 TABLET BY ity of tablet 00:00: MOUTH THREE Medical TIMES Branch DAILY CLONIDINE 2020-0 Yes [id number] TAKE 1 [facility] ally 0.2 mg 8-06 TABLET BY ity of tablet 00:00: MOUTH THREE Medical TIMES Branch DAILY CLONIDINE 2020-0 Yes [id number] TAKE 1 Un ally 0.2 mg 8-06 TABLET BY ity of tablet 00:00: MOUTH THREE Medical TIMES Branch DAILY CLONIDINE 2020-0 Yes [id number] TAKE 1 [facility] ally 0.2 mg 8-06 TABLET BY ity of tablet 00:00: MOUTH THREE Medical TIMES Branch DAILY CLONIDINE 2020-0 Yes [id number] TAKE 1 Un ally 0.2 mg 8-06 TABLET BY ity of tablet 00:00: MOUTH THREE Medical TIMES Branch DAILY CLONIDINE 2020-0 2022- No [id number] TAKE 1 U nivers 0.2 mg 06-06 TABLET BY ity of tablet 00:00: 00:00 MOUTH [place] 00 :00 THREE Medical TIMES Branch DAILY CLONIDINE 2020-0 2- No [id number] TAKE 1 U nivers 0.2 mg 06-06 TABLET BY ity of tablet 00:00: 00:00 MOUTH [place] 00 :00 THREE Medical TIMES Branch DAILY sulfamethox 2020-0 Yes TK 1 T PO [...] No TK 1 T PO Univers azole-trime -08 11-09 BID ity of thoprim 00:00: 00:00 [place] 800-160 mg 00 :00 Medical per tablet Branch AMITIZA 24 2020-0 [...] mcg capsule 7- BID ity of 00:00: [place] [facility] Branch AMITIZA 24 2019-0 Yes TK 1 C PO Un ally mcg capsule 7- BID ity of 00:00: [place] [facility] AMITIZA 24 2019-0 Yes TK 1 C PO Un ally mcg capsule - BID ity of 00:00: [place] [facility] AMITIZA 24 2019-0 Yes TK 1 C PO Un ally mcg capsule - BID ity of 00:00: [place] [facility] AMITIZA 24 2019-0 Yes TK 1 C PO Un ally mcg capsule - BID ity of 00:00: [place] [facility] AMITIZA 24 2019-0 Yes TK 1 C PO Un ally mcg capsule - BID ity of 00:00: [place] [facility] AMITIZA 24 2019-0 Yes TK 1 C PO Un ally mcg capsule - BID ity of 00:00: [place] [facility] AMITIZA 24 2019-0 Yes TK 1 C PO Un ally mcg capsule - BID ity of 00:00: [place] [facility] AMITIZA 24 2019-0 Yes TK 1 C PO Un ally mcg capsule - BID ity of 00:00: [place] [facility] AMITIZA 24 2019-0 Yes TK 1 C PO Un ally mcg capsule - BID ity of 00:00: [place] [facility] AMITIZA 24 2019-0 Yes TK 1 C PO Un ally mcg capsule - BID ity of 00:00: [place] [facility] AMITIZA 24 2019-0 Yes TK 1 C PO Un ally mcg capsule - BID ity of 00:00: [place] [facility] AMITIZA 24 2019-0 Yes TK 1 C PO Un ally mcg capsule - BID ity of 00:00: [place] [facility] AMITIZA 24 2019-0 Yes TK 1 C PO Un ally mcg capsule - BID ity of 00:00: [place] [facility] AMITIZA 24 2019-0 Yes TK 1 C PO Un ally mcg capsule - BID ity of 00:00: [place] [facility] AMITIZA 24 2019-0 Yes TK 1 C PO Un ally mcg capsule 7- BID ity of 00:00: [place] [facility] AMITIZA 24 2020-0 Yes TK 1 C PO Un ally mcg capsule - BID ity of 00:00: [place] [facility] AMITIZA 24 2020-0 Yes TK 1 C PO Un ally mcg capsule - BID ity of 00:00: [place] [facility] AMITIZA 24 2020-0 Yes TK 1 C PO Un ally mcg capsule 05-06 BID ity of 00:00: [place] [facility] AMITIZA 24 2020-0 Yes TK 1 C PO Un ally mcg capsule 05-06 BID ity of 00:00: [place] [facility] AMITIZA 24 2019-0 Yes TK 1 C PO Un ally mcg capsule 05-06 BID ity of 00:00: [place] [facility] AMITIZA 24 2019-0 Yes TK 1 C PO Un ally mcg capsule 05-06 BID ity of 00:00: [place] [facility] AMITIZA 24 2019-0 Yes TK 1 C PO Un ally mcg capsule 05-06 BID ity of 00:00: [place] [facility] AMITIZA 24 2019-0 Yes TK 1 C PO Un ally mcg capsule 05-06 BID ity of 00:00: [place] [facility] AMITIZA 24 2020-0 Yes TK 1 C PO Un ally mcg capsule 05-06 BID ity of 00:00: [place] [facility] AMITIZA 24 2019-0 Yes TK 1 C PO Un ally mcg capsule 05-06 BID ity of 00:00: [place] [facility] AMITIZA 24 2020-0 Yes TK 1 C PO Un ally mcg capsule 05-06 BID ity of 00:00: [place] [facility] AMITIZA 24 2020-0 Yes TK 1 C PO Un ally mcg capsule 05-06 BID ity of 00:00: [place] [facility] AMITIZA 24 2020-0 Yes TK 1 C PO Un ally mcg capsule - BID ity of 00:00: [place] [facility] AMITIZA 24 2020-0 Yes TK 1 C PO Un ally mcg capsule - BID ity of 00:00: [place] [facility] AMITIZA 24 2020-0 Yes TK 1 C PO Un ally mcg capsule - BID ity of 00:00: [place] [facility] AMITIZA 24 2020-0 Yes TK 1 C PO Un ally mcg capsule - BID ity of 00:00: [place] 00 Medical Branch AMITIZA 24 2020-0 Yes TK 1 C PO Un ally mcg capsule 7-06 BID ity of 00:00: [place] [facility] AMITIZA 24 2020-0 Yes TK 1 C PO Un ally mcg capsule 7-06 BID ity of 00:00: [place] [facility] AMITIZA 24 2020-0 Yes TK 1 C PO Un ally mcg capsule 7-06 BID ity of 00:00: [place] [facility] AMITIZA 24 2020-0 Yes TK 1 C PO Un ally mcg capsule 7- BID ity of 00:00: [place] [facility] AMITIZA 24 2020-0 Yes TK 1 C PO Un ally mcg capsule - BID ity of 00:00: [place] [facility] AMITIZA 24 2019-0 Yes TK 1 C PO Un ally mcg capsule - BID ity of 00:00: [place] [facility] AMITIZA 24 2020-0 Yes TK 1 C PO Un ally mcg capsule - BID ity of 00:00: [place] [facility] AMITIZA 24 2020-0 Yes TK 1 C PO Un ally mcg capsule - BID ity of 00:00: [place] [facility] AMITIZA 24 2020-0 Yes TK 1 C PO Un ally mcg capsule -06 BID ity of 00:00: [place] [facility] AMITIZA 24 2020-0 Yes TK 1 C PO Un ally mcg capsule -06 BID ity of 00:00: [place] [facility] AMITIZA 24 2020-0 Yes TK 1 C PO Un ally mcg capsule 7-06 BID ity of 00:00: [place] 00 Medical Branch AMITIZA 24 2020-0 Yes TK 1 C PO Un ally mcg capsule 7-06 BID ity of 00:00: [place] 00 Medical Branch AMITIZA 24 2020-0 Yes TK 1 C PO Un ally mcg capsule 7-06 BID ity of 00:00: [place] 00 Medical Branch XIFAXAN 550 2020-0 Yes as needed. [facility] mg tablet 5-14 ity of 00:00: [place] 00 Medical Branch XIFAXAN 550 2020-0 Yes as needed. [facility] mg tablet 5-14 ity of 00:00: [place] 00 Medical Branch XIFAXAN 550 2020-0 Yes [...] Univers mg tablet 5-14 ity of 00:00: [place] 00 Medical Branch VICTOZA 2020-0 Yes INJECT 1.8 Univ ers [...] mg/3 00 DAILY Medical mL) Branch injection pantoprazol 2018-11 Yes 40mg Take 1 Univ [...] mouth (two) Medical times Branch daily. pantoprazol 2018- [...] mouth (two) Medical times Branch daily. pantoprazol 2018- [...] mouth (two) Medical times Branch daily. pantoprazol 2018- [...] mouth (two) Medical times Branch daily. pantoprazol 2018- Yes 40mg Take 1 Univ ers e 40 mg EC 1-21 tablet by ity of tablet 00:00: mouth (two) Medical times Branch daily. pantoprazol 2018- Yes 40mg Take 1 Univ ers e 40 mg EC 1-21 tablet by ity of tablet 00:00: mouth (two) Medical times Branch daily. pantoprazol 2018- Yes 40mg Take 1 Univ ers e 40 mg EC 1-21 tablet by ity of tablet 00:00: mouth 2 [place] 00 (two) Medical times Branch daily. pantoprazol 2019 Yes 40mg Take 1 Univ ers e 40 mg EC 1-21 tablet by ity of tablet 00:00: mouth 2 [place] 00 (two) Medical times Branch daily. allopurinol 2019-0 Yes 100mg Take 100 U [...] mg 09:53: mouth [place] tablet 14 daily. [facility] ALPRAZolam 2019-0 Yes 2mg Take 2 mg Un ally (XANAX) 8-28 by mouth ity of 0.25 mg 09:53: every 6 [place] tablet 14 (six) Medical hours as Branch needed. allopurinol 2019-0 Yes 100mg Take 100 U nivers (ZYLOPRIM) 8-28 mg by ity of 100 mg 09:53: mouth [place] tablet 14 daily. [facility] ALPRAZolam 2019-0 Yes 2mg Take [...] mg 09:53: mouth [place] tablet 14 daily. [facility] ALPRAZolam 2019-0 Yes 2mg Take 2 mg Un ally (XANAX) 8-28 by mouth ity of 0.25 mg 09:53: every 6 [place] tablet 14 (six) Medical hours as Branch needed. allopurinol 2019-0 Yes 100mg Take 100 U nivers (ZYLOPRIM) 8-28 mg by ity of 100 mg 09:53: mouth [place] tablet 14 daily. [facility] ALPRAZolam 2019-0 Yes 2mg Take 2 mg Un ally (XANAX) 8-28 by mouth ity of 0.25 mg 09:53: every 6 [place] tablet 14 (six) Medical hours as Branch needed. allopurinol 2019-0 Yes 100mg Take 100 U nivers (ZYLOPRIM) 8-28 mg by ity of 100 mg 09:53: mouth [place] tablet 14 daily. [facility] ALPRAZolam 2019-0 Yes 2mg Take 2 mg Un ally (XANAX) 8-28 by mouth ity of 0.25 mg 09:53: every 6 [place] tablet 14 (six) Medical hours as Branch needed. allopurinol 2019-0 Yes 100mg Take 100 U nivers (ZYLOPRIM) 8-28 mg by ity of 100 mg 09:53: mouth [place] tablet 14 daily. [facility] ALPRAZolam 2019-0 Yes 2mg Take [...] 14 (six) Medical hours as Branch needed. atorvastati Yes [id number] 40mg Take 1 [facility] n 40 mg 5-28 tablet by ity of tablet 00:00: mouth [place] 00 every Medical evening. Branch atorvastati Yes [id number] 40mg Take 1 [facility] n 40 mg 5-28 tablet by ity of tablet 00:00: mouth [place] 00 every Medical evening. Branch atorvastati Yes [id number] 40mg Take 1 [facility] n 40 mg 5-28 tablet by ity of tablet 00:00: mouth [place] 00 every Medical evening. Branch atorvastati Yes [id number] 40mg Take 1 [facility] n 40 mg 5-28 tablet by ity of tablet 00:00: mouth [place] 00 every Medical evening. Branch atorvastati Yes [id number] 40mg Take 1 [facility] n 40 mg 5-28 tablet by ity of tablet 00:00: mouth [place] 00 every Medical evening. [facility] atorvastati Yes [id number] 40mg Take 1 [facility] 40 mg 5-28 tablet by [facility] tablet 00:00: mouth [place] 00 every Medical evening. [facility] atorvastati Yes [id number] 40mg Take 1 [facility] 40 mg 5-28 tablet by [facility] of tablet 00:00: mouth [place] 00 every Medical evening. [facility] atorvastati Yes [id number] 40mg Take 1 [facility] 40 mg 5-28 tablet by [facility] of tablet 00:00: mouth [place] 00 every Medical evening. [facility] atorvastati Yes [id number] 40mg Take 1 [facility] 40 mg 5-28 tablet by [facility] of tablet 00:00: mouth [place] 00 every Medical evening. [facility] atorvastati Yes [id number] 40mg Take 1 [facility] 40 mg 5-28 tablet by [facility] of tablet 00:00: mouth [place] 00 every Medical evening. [facility] atorvastati 0 Yes [id number] 40mg Take 1 [facility] 40 mg 5-28 tablet by [facility] of tablet 00:00: mouth [place] 00 every Medical evening. [facility] atorvastati 0 Yes [id number] 40mg Take 1 [facility] 40 mg 5-28 tablet by [facility] of tablet 00:00: mouth [place] 00 every Medical evening. [place] atorvastati 0 Yes [id number] 40mg Take 1 [facility] 40 mg 5-28 tablet by [facility] of tablet 00:00: mouth [place] 00 every Medical evening. [place] atorvastati Yes [id number] 40mg Take 1 [facility] 40 mg 5-28 tablet by [facility] of tablet 00:00: mouth [place] 00 every Medical evening. [place] atorvastati Yes [id number] 40mg Take 1 [facility] 40 mg 5-28 tablet by [facility] of tablet 00:00: mouth [place] 00 every Medical evening. [place] atorvastati Yes [id number] 40mg Take 1 [facility] 40 mg 5-28 tablet by [facility] of tablet 00:00: mouth [place] 00 every Medical evening. [place] atorvastati Yes [id number] 40mg Take 1 [facility] 40 mg 5-28 tablet by [facility] of tablet 00:00: mouth [place] 00 every Medical evening. [place] atorvastati Yes [id number] 40mg Take 1 [facility] 40 mg 5-28 tablet by [facility] of tablet 00:00: mouth [place] 00 every Medical evening. [place] atorvastati 0 Yes [id number] 40mg Take 1 [facility] 40 mg 5-28 tablet by [facility] of tablet 00:00: mouth [place] 00 every Medical evening. [place] atorvastati 0 Yes [id number] 40mg Take 1 [facility] 40 mg 5-28 tablet by [facility] of tablet 00:00: mouth [place] 00 every Medical evening. [place] atorvastati 0 Yes [id number] 40mg Take 1 [facility] 40 mg 5-28 tablet by [facility] of tablet 00:00: mouth [place] 00 every Medical evening. [place] atorvastati Yes [id number] 40mg Take 1 [facility] 40 mg 5-28 tablet by [facility] of tablet 00:00: mouth [place] 00 every Medical evening. [place] atorvastati Yes [id number] 40mg Take 1 [facility] 40 mg 5-28 tablet by [facility] of tablet 00:00: mouth [place] 00 every Medical evening. [facility] atorvastati Yes [id number] 40mg Take 1 [facility] 40 mg 5-28 tablet by [facility] of tablet 00:00: mouth [place] 00 every Medical evening. [facility] atorvastati Yes [id number] 40mg Take 1 [facility] 40 mg 5-28 tablet by [facility] of tablet 00:00: mouth [place] 00 every Medical evening. [facility] atorvastati Yes [id number] 40mg Take 1 [facility] 40 mg 5-28 tablet by [facility] of tablet 00:00: mouth [place] 00 every Medical evening. [facility] atorvastati Yes [id number] 40mg Take 1 [facility] 40 mg 5-28 tablet by [facility] of tablet 00:00: mouth [place] 00 every Medical evening. [facility] atorvastati Yes [id number] 40mg Take 1 [facility] 40 mg 5-28 tablet by [facility] of tablet 00:00: mouth [place] 00 every Medical evening. [facility] atorvastati Yes [id number] 40mg Take 1 [facility] 40 mg 5-28 tablet by [facility] of tablet 00:00: mouth [place] 00 every Medical evening. [facility] atorvastati Yes [id number] 40mg Take 1 [facility] 40 mg 5-28 tablet by [facility] of tablet 00:00: mouth [place] 00 every Medical evening. [facility] atorvastati Yes [id number] 40mg Take 1 [facility] 40 mg 5-28 tablet by [facility] of tablet 00:00: mouth [place] 00 every Medical evening. [facility] atorvastati Yes [id number] 40mg Take 1 [facility] 40 mg 5-28 tablet by [facility] of tablet 00:00: mouth [place] 00 every Medical evening. [facility] atorvastati Yes [id number] 40mg Take 1 [facility] 40 mg 5-28 tablet by [facility] of tablet 00:00: mouth [place] 00 every Medical evening. [facility] atorvastati 2021- No [id number] 40mg Take 1 [facility] 40 mg 5-28 11-21 tablet by [facility] of tablet 00:00: 00:00 mouth [place] 00 :00 every Medical evening. [facility] atorvastati 2021- No [id number] 40mg Take 1 [facility] 40 mg [...] :00 daily. Medical [facility] Cholecalcif 2017-11 Yes [id number] Take 1 Un [facility] alayna, 0-01 capsule by [facility]y of Vitamin D3, 00:00: mouth [place] 50,000 unit 00 weekly. Medic al capsule [facility] Cholecalcif 2017-11 Yes [id number] Take 1 [facility] alay[facility], 0-01 capsule by ity of Vitamin D3, 00:00: mouth [place] 50,000 unit 00 weekly. Medic al capsule [facility] Cholecalcif 2017-11 Yes [id number] Take 1 [facility], 0-01 capsule by ity of Vitamin D3, 00:00: mouth [place] 50,000 unit 00 weekly. Medic al capsule [facility] Cholecalcif 2017-11 Yes [id number] Take 1 [facility], 0-01 capsule by ity of Vitamin D3, 00:00: mouth [place] 50,000 unit 00 weekly. Medic al capsule [facility] Cholecalcif 2017-11 Yes [id number] Take 1 [facility], 0-01 capsule by ity of Vitamin D3, 00:00: mouth [place] 50,000 unit 00 weekly. Medic al capsule [facility] Cholecalcif 2017-11 Yes [id number] Take 1 [facility], 0-01 capsule by ity of Vitamin D3, 00:00: mouth [place] 50,000 unit 00 weekly. Medic al capsule [facility] Cholecalcif 2017-11 Yes [id number] Take 1 [facility], 0-01 capsule by ity of Vitamin D3, 00:00: mouth [place] 50,000 unit 00 weekly. Medic al capsule [facility] Cholecalcif 2017-11 Yes [id number] Take 1 [facility], 0-01 capsule by ity of Vitamin D3, 00:00: mouth [place] 50,000 unit 00 weekly. Medic al capsule [facility] Cholecalcif 2017-11 Yes [id number] Take 1 [facility], 0-01 capsule by ity of Vitamin D3, 00:00: mouth [place] 50,000 unit 00 weekly. Medic al capsule [facility] Cholecalcif 2017-11 Yes [id number] Take 1 [facility], 0-01 capsule by ity of Vitamin D3, 00:00: mouth [place] 50,000 unit 00 weekly. Medic al capsule [facility] Cholecalcif 2017-11 Yes [id number] Take 1 [facility], 0-01 capsule by ity of Vitamin D3, 00:00: mouth [place] 50,000 unit 00 weekly. Medic al capsule [facility] Cholecalcif 2017-11 Yes [id number] Take 1 [facility], 0-01 capsule by ity of Vitamin D3, 00:00: mouth [place] 50,000 unit 00 weekly. Medic al capsule [facility] Cholecalcif 2017-11 Yes [id number] Take 1 [facility], 0-01 capsule by ity of Vitamin D3, 00:00: mouth [place] 50,000 unit 00 weekly. Medic al capsule [facility] Cholecalcif 2017-11 Yes [id number] Take 1 [facility], 0-01 capsule by ity of Vitamin D3, 00:00: mouth [place] 50,000 unit 00 weekly. Medic al capsule [facility] Cholecalcif 2017-11 Yes [id number] Take 1 [facility], 0-01 capsule by ity of Vitamin D3, 00:00: mouth [place] 50,000 unit 00 weekly. Medic al capsule [facility] Cholecalcif 2017-11 Yes [id number] Take 1 [facility], 0-01 capsule by ity of Vitamin D3, 00:00: mouth [place] 50,000 unit 00 weekly. Medic al capsule [facility] Cholecalcif 2017-11 Yes [id number] Take 1 [facility], 0-01 capsule by ity of Vitamin D3, 00:00: mouth [place] 50,000 unit 00 weekly. Medic al capsule [facility] Cholecalcif 2017-11 Yes [id number] Take 1 [facility], 0-01 capsule by ity of Vitamin D3, 00:00: mouth [place] 50,000 unit 00 weekly. Medic al capsule [facility] Cholecalcif 2017-11 Yes [id number] Take 1 [facility], 0-01 capsule by ity of Vitamin D3, 00:00: mouth [place] 50,000 unit 00 weekly. Medic al capsule [facility] Cholecalcif 2017-11 Yes [id number] Take 1 [facility], 0-01 capsule by ity of Vitamin D3, 00:00: mouth [place] 50,000 unit 00 weekly. Medic al capsule [facility] Cholecalcif 2017-11 Yes [id number] Take 1 [facility], 0-01 capsule by ity of Vitamin D3, 00:00: mouth [place] 50,000 unit 00 weekly. Medic al capsule [facility] Cholecalcif 2017-11 Yes [id number] Take 1 [facility], 0-01 capsule by ity of Vitamin D3, 00:00: mouth [place] 50,000 unit 00 weekly. Medic al capsule [facility] Cholecalcif 2017-11 Yes [id number] Take 1 [facility], 0-01 capsule by ity of Vitamin D3, 00:00: mouth [place] 50,000 unit 00 weekly. Medic al capsule [facility] Cholecalcif 2017-11 Yes [id number] Take 1 [facility], 0-01 capsule by ity of Vitamin D3, 00:00: mouth [place] 50,000 unit 00 weekly. Medic al capsule [facility] Cholecalcif 2017-11 Yes [id number] Take 1 [facility], 0-01 capsule by ity of Vitamin D3, 00:00: mouth [place] 50,000 unit 00 weekly. Medic al capsule [facility] Cholecalcif 2017-11 Yes [id number] Take 1 [facility], 0-01 capsule by ity of Vitamin D3, 00:00: mouth [place] 50,000 unit 00 weekly. Medic al capsule [facility] Cholecalcif 2017-11 Yes [id number] Take 1 [facility], 0-01 capsule by ity of Vitamin D3, 00:00: mouth [place] 50,000 unit 00 weekly. Medic al capsule [facility] Cholecalcif 2017-11 Yes [id number] Take 1 [facility], 0-01 capsule by ity of Vitamin D3, 00:00: mouth [place] 50,000 unit 00 weekly. Medic al capsule [facility] Cholecalcif 2017-11 Yes [id number] Take 1 [facility], 0-01 capsule by ity of Vitamin D3, 00:00: mouth [place] 50,000 unit 00 weekly. Medic al capsule [facility] Cholecalcif 2017-11 Yes [id number] Take 1 [facility], 0-01 capsule by ity of Vitamin D3, 00:00: mouth [place] 50,000 unit 00 weekly. Medic al capsule [facility] Cholecalcif 2017-11 Yes [id number] Take 1 [facility], 0-01 capsule by ity of Vitamin D3, 00:00: mouth [place] 50,000 unit 00 weekly. Medic al capsule [facility] Cholecalcif 2017-11 Yes [id number] Take 1 [facility], 0-01 capsule by ity of Vitamin D3, 00:00: mouth [place] 50,000 unit 00 weekly. Medic al capsule [facility] Cholecalcif 2017-11 Yes [id number] Take 1 [facility], 0-01 capsule by ity of Vitamin D3, 00:00: mouth [place] 50,000 unit 00 weekly. Medic al capsule [facility] Cholecalcif 2017-11 Yes [id number] Take 1 [facility], 0-01 capsule by ity of Vitamin D3, 00:00: mouth [place] 50,000 unit 00 weekly. Medic al capsule [facility] Cholecalcif 2017-11 Yes [id number] Take 1 [facility], 0-01 capsule by ity of Vitamin D3, 00:00: mouth [place] 50,000 unit 00 weekly. Medic al capsule [facility] Cholecalcif 2017-11 Yes [id number] Take 1 [facility], 0-01 capsule by ity of Vitamin D3, 00:00: mouth [place] 50,000 unit 00 weekly. Medic al capsule [facility] Cholecalcif 2017-11 Yes [id number] Take 1 [facility], 0-01 capsule by ity of Vitamin D3, 00:00: mouth [place] 50,000 unit 00 weekly. Medic al capsule [facility] Cholecalcif 2017-11 Yes [id number] Take 1 [facility], 0-01 capsule by ity of Vitamin D3, 00:00: mouth [place] 50,000 unit 00 weekly. Medic al capsule [facility] Cholecalcif 2017-11 Yes [id number] Take 1 [facility], 0-01 capsule by ity of Vitamin D3, 00:00: mouth [place] 50,000 unit 00 weekly. Medic al capsule [facility] Cholecalcif 2017-11 Yes [id number] Take 1 [facility], 0-01 capsule by ity of Vitamin D3, 00:00: mouth [place] 50,000 unit 00 weekly. Medic al capsule [facility] Cholecalcif 2017-11 Yes [id number] Take 1 [facility], 0-01 capsule by ity of Vitamin D3, 00:00: mouth [place] 50,000 unit 00 weekly. Medic al capsule [facility] Cholecalcif 2017-11 Yes [id number] Take 1 [facility], 0-01 capsule by ity of Vitamin D3, 00:00: mouth [place] 50,000 unit 00 weekly. Medic al capsule [facility] Cholecalcif 2017-11 Yes [id number] Take 1 [facility], 0-01 capsule by ity of Vitamin D3, 00:00: mouth [place] 50,000 unit 00 weekly. Medic al capsule [facility] Cholecalcif 2017-11 Yes [id number] Take 1 [facility], 0-01 capsule by ity of Vitamin D3, 00:00: mouth [place] 50,000 unit 00 weekly. Medic al capsule [facility] Cholecalcif 2017-11 Yes [id number] Take 1 [facility], 0-01 capsule by ity of Vitamin D3, 00:00: mouth [place] 50,000 unit 00 weekly. Medic al capsule [facility] Cholecalcif 2017-11 Yes [id number] Take 1 [facility], 0-01 capsule by ity of Vitamin D3, 00:00: mouth [place] 50,000 unit 00 weekly. Medic al capsule [facility] Cholecalcif 2017-11 Yes [id number] Take 1 [facility], 0-01 capsule by ity of Vitamin D3, 00:00: mouth [place] 50,000 unit 00 weekly. Medic al capsule [facility] Cholecalcif 2017-11 Yes [id number] Take 1 [facility], 0-01 capsule by ity of Vitamin D3, 00:00: mouth [place] 50,000 unit 00 weekly. Medic al capsule [facility] Cholecalcif 2017-11 Yes [id number] Take 1 [facility], 0-01 capsule by ity of Vitamin D3, 00:00: mouth [place] 50,000 unit 00 weekly. Medic al capsule Branch Lactated No 1,000 mL, [place] [facility]ers IV 04-04 Rate: 40 l 1,000 mL 19:14: ml/hr, [place] 00 Infuse over: 25 hr, Route: IV, Dosing Weight 141.364 kg, Total Volume: 1,000, Start date: 04/04/18 14:14:00 CDT, Duration: 30 day, Stop date: 05/04/18 14:13:00 CDT, 2.56, m2 Lactated No 1,000 mL, [place] [facility] IV 04-04 Rate: 40 l 1,000 mL 19:14: ml/hr, [place] 00 Infuse over: 25 hr, Route: IV, Dosing Weight 141.364 kg, Total Volume: 1,000, Start date: 04/04/18 14:14:00 CDT, Duration: 30 day, Stop date: 05/04/18 14:13:00 CDT, 2.56, m2 Lactated 0 No 1,000 mL, [place] [facility] IV 04-04 Rate: 40 l 1,000 mL 19:14: ml/hr, [place] 00 Infuse over: 25 hr, Route: IV, Dosing Weight 141.364 kg, Total Volume: 1,000, Start date: 04/04/18 14:14:00 CDT, Duration: 30 day, Stop date: 05/04/18 14:13:00 CDT, 2.56, m2 Lactated 2018-0 No 1,000 mL, [place] [facility] IV 6-04 Rate: 40 l 1,000 mL 19:14: ml/hr, [place] 00 Infuse over: 25 hr, Route: IV, [...] Rate: 40 l 1,000 mL 19:14: ml/hr, [place] 00 Infuse over: 25 hr, Route: IV, [...] Rate: 40 l 1,000 mL 19:14: ml/hr, [place] 00 Infuse over: 25 hr, Route: IV, [...] Rate: 40 l 1,000 mL 19:14: ml/hr, [place] 00 Infuse over: 25 hr, Route: IV, Dosing Weight 141.364 kg, Total Volume: 1,000, Start date: 04/04/18 14:14:00 CDT, Duration: 30 day, Stop date: 05/04/18 14:13:00 CDT, 2.56, m2 Lactated 2018-0 No 1,000 mL, [place] [facility] IV 6-04 Rate: 40 l 1,000 mL 19:14: ml/hr, [place] 00 Infuse over: 25 hr, Route: IV, [...] Rate: 40 l 1,000 mL 19:14: ml/hr, [place] 00 Infuse over: 25 hr, Route: IV, [...] Rate: 40 l 1,000 mL 19:14: ml/hr, [place] 00 Infuse over: 25 hr, Route: IV, Dosing Weight 141.364 kg, Total Volume: 1,000, Start date: 04/04/18 14:14:00 CDT, Duration: 30 day, Stop date: 05/04/18 14:13:00 CDT, 2.56, m2 Lactated 2018-0 No 1,000 mL, [place] [facility] IV 6-04 Rate: 40 l 1,000 mL 19:14: ml/hr, [place] 00 Infuse over: 25 hr, Route: IV, [...] Rate: 40 l 1,000 mL 19:14: ml/hr, [place] 00 Infuse over: 25 hr, Route: IV, [...] Rate: 40 l 1,000 mL 19:14: ml/hr, [place] 00 Infuse over: 25 hr, Route: IV, Dosing Weight 141.364 kg, Total Volume: 1,000, Start date: 04/04/18 14:14:00 CDT, Duration: 30 day, Stop date: 05/04/18 14:13:00 CDT, 2.56, m2 Lactated 2018-0 No 1,000 mL, [place] [facility] IV 6-04 Rate: 40 l 1,000 mL 19:14: ml/hr, [place] 00 Infuse over: 25 hr, Route: IV, Dosing Weight 141.364 kg, Total Volume: 1,000, Start date: 04/04/18 14:14:00 CDT, Duration: 30 day, Stop date: 05/04/18 14:13:00 CDT, 2.56, m2 Lactated 2018-0 No 1,000 mL, [place] [facility] IV 6-04 Rate: 40 l 1,000 mL 19:14: ml/hr, [place] 00 Infuse over: 25 hr, Route: IV, [...] Rate: 40 l 1,000 mL 19:14: ml/hr, [place] 00 Infuse over: 25 hr, Route: IV, [...] Rate: 40 l 1,000 mL 19:14: ml/hr, [place] 00 Infuse over: 25 hr, Route: IV, Dosing Weight 141.364 kg, Total Volume: 1,000, Start date: 04/04/18 14:14:00 CDT, Duration: 30 day, Stop date: 05/04/18 14:13:00 CDT, 2.56, m2 Lactated 2018-0 No 1,000 mL, [place] [facility] IV 6-04 Rate: 40 l 1,000 mL 19:14: ml/hr, [place] 00 Infuse over: 25 hr, Route: IV, Dosing Weight 141.364 kg, Total Volume: 1,000, Start date: 04/04/18 14:14:00 CDT, Duration: 30 day, Stop date: 05/04/18 14:13:00 CDT, 2.56, m2 Lactated 2018-0 No 1,000 mL, [place] [facility] IV 6-04 Rate: 40 l 1,000 mL 19:14: ml/hr, [place] 00 Infuse over: 25 hr, Route: IV, [...] Rate: 40 l 1,000 mL 19:14: ml/hr, [place] 00 Infuse over: 25 hr, Route: IV, [...] Rate: 40 l 1,000 mL 19:14: ml/hr, [place] 00 Infuse over: 25 hr, Route: IV, [...] Rate: 40 l 1,000 mL 19:14: ml/hr, [place] 00 Infuse over: 25 hr, Route: IV, Dosing Weight 141.364 kg, Total Volume: 1,000, Start date: 04/04/18 14:14:00 CDT, Duration: 30 day, Stop date: 05/04/18 14:13:00 CDT, 2.56, m2 Lactated 2018-0 No 1,000 mL, [place] [facility] IV 6-04 Rate: 40 l 1,000 mL 19:14: ml/hr, [place] 00 Infuse over: 25 hr, Route: IV, [...] Rate: 40 l 1,000 mL 19:14: ml/hr, [place] 00 Infuse over: 25 hr, Route: IV, Dosing Weight 141.364 kg, Total Volume: 1,000, Start date: 04/04/18 14:14:00 CDT, Duration: 30 day, Stop date: 05/04/18 14:13:00 CDT, 2.56, m2 Lactated 2018-0 No 1,000 mL, [place] [facility] IV 6-04 Rate: 40 l 1,000 mL 19:14: ml/hr, [place] 00 Infuse over: 25 hr, Route: IV, Dosing Weight 141.364 kg, Total Volume: 1,000, Start date: 04/04/18 14:14:00 CDT, Duration: 30 day, Stop date: 05/04/18 14:13:00 CDT, 2.56, m2 Lactated 2018-0 No 1,000 mL, [place] [facility] IV 6-04 Rate: 40 l 1,000 mL 19:14: ml/hr, [place] 00 Infuse over: 25 hr, Route: IV, [...] Rate: 40 l 1,000 mL 19:14: ml/hr, [place] 00 Infuse over: 25 hr, Route: IV, Dosing Weight 141.364 kg, Total Volume: 1,000, Start date: 04/04/18 14:14:00 CDT, Duration: 30 day, Stop date: 05/04/18 14:13:00 CDT, 2.56, m2 Lactated 2018-0 No 1,000 mL, [place] [facility] IV 6-04 Rate: 40 l 1,000 mL 19:14: ml/hr, [place] 00 Infuse over: 25 hr, Route: IV, [...] Rate: 40 l 1,000 mL 19:14: ml/hr, [place] 00 Infuse over: 25 hr, Route: IV, [...] Rate: 40 l 1,000 mL 19:14: ml/hr, [place] 00 Infuse over: 25 hr, Route: IV, Dosing Weight 141.364 kg, Total Volume: 1,000, Start date: 04/04/18 14:14:00 CDT, Duration: 30 day, Stop date: 05/04/18 14:13:00 CDT, 2.56, m2 Lactated 2018-0 No 1,000 mL, [place] [facility] IV 04-04 Rate: 40 l 1,000 mL 19:14: ml/hr, [place] 00 Infuse over: 25 hr, Route: IV, Dosing Weight 141.364 kg, Total Volume: 1,000, Start date: 04/04/18 14:14:00 CDT, Duration: 30 day, Stop date: 05/04/18 14:13:00 CDT, 2.56, m2 Humulin 2018-0 Yes 60 unit, [facility] 70/30 5-15 SUB-Q, l 18:44: QPM, 0 [place] 00 Refill(s) Humulin 2018-0 Yes 60 unit, [facility] 70/30 5-15 SUB-Q, l 18:44: QPM, 0 [place] 00 Refill(s) Humulin 2018-0 Yes 60 unit, [facility] 70/30 5-15 SUB-Q, l 18:44: QPM, 0 [place] 00 Refill(s) Humulin 2018-0 Yes 60 unit, [facility] 70/30 5-15 SUB-Q, l 18:44: QPM, 0 [place] 00 Refill(s) Humulin 2018-0 Yes 60 unit, [...] 70/30 5-15 SUB-Q, l 18:44: QPM, 0 [place] 00 Refill(s) Humulin 2018-0 Yes 60 unit, [facility] 70/30 5-15 SUB-Q, l 18:44: QPM, 0 [place] 00 Refill(s) Humulin 2018-0 Yes 60 unit, [facility] 70/30 5-15 SUB-Q, l 18:44: QPM, 0 [place] 00 Refill(s) Humulin 2017-0 Yes 60 unit, [facility] 70/30 5-15 SUB-Q, l 18:44: QPM, 0 [place] 00 Refill(s) Humulin 2017-0 Yes 60 unit, [facility] 70/30 5-15 SUB-Q, l 18:44: QPM, 0 [place] 00 Refill(s) Humulin 2018-0 Yes 60 unit, [facility] 70/30 5-15 SUB-Q, l 18:44: QPM, 0 [place] 00 Refill(s) Humulin 2017-0 Yes 60 unit, [facility] 70/30 5-15 SUB-Q, l 18:44: QPM, 0 [place] 00 Refill(s) Humulin 2018-0 Yes 60 unit, [facility] 70/30 5-15 SUB-Q, l 18:44: QPM, 0 [place] 00 Refill(s) Humulin 2018-0 Yes 60 unit, [facility] 70/30 5-15 SUB-Q, l 18:44: QPM, 0 [place] 00 Refill(s) Humulin 2017-0 Yes 60 unit, [facility] 70/30 5-15 SUB-Q, l 18:44: QPM, 0 [place] 00 Refill(s) Humulin 2018-0 Yes 60 unit, [facility] 70/30 5-15 SUB-Q, l 18:44: QPM, 0 [place] 00 Refill(s) Humulin 2018-0 Yes 60 unit, [facility] 70/30 5-15 SUB-Q, l 18:44: QPM, 0 [place] 00 Refill(s) Humulin 2018-0 Yes 60 unit, [facility] 70/30 5-15 SUB-Q, l 18:44: QPM, 0 [place] 00 Refill(s) Humulin 2018-0 Yes 60 unit, [facility] 70/30 5-15 SUB-Q, l 18:44: QPM, 0 [place] 00 Refill(s) Humulin 2018-0 Yes 60 unit, [facility] 70/30 5-15 SUB-Q, l 18:44: QPM, 0 [place] 00 Refill(s) Humulin 2018-0 Yes 60 unit, [facility] 70/30 5-15 SUB-Q, l 18:44: QPM, 0 [place] 00 Refill(s) Humulin 2018-0 Yes 60 unit, [facility] 70/30 5-15 SUB-Q, l 18:44: QPM, 0 [place] 00 Refill(s) Humulin 2018-0 Yes 60 unit, [facility] 70/30 5-15 SUB-Q, l 18:44: QPM, 0 [place] 00 Refill(s) Humulin 2018-0 Yes 60 unit, [facility] 70/30 5-15 SUB-Q, l 18:44: QPM, 0 [place] 00 Refill(s) Humulin 2018-0 Yes 60 unit, [facility] 70/30 5-15 SUB-Q, l 18:44: QPM, 0 [place] 00 Refill(s) Humulin 2018-0 Yes 60 unit, [facility] 70/30 5-15 SUB-Q, l 18:44: QPM, 0 [place] 00 Refill(s) Humulin 2018-0 Yes 60 unit, [facility] 70/30 5-15 SUB-Q, l 18:44: QPM, 0 [place] 00 Refill(s) Humulin 2018-0 Yes 60 unit, [facility] 70/30 5-15 SUB-Q, l 18:44: QPM, 0 [place] 00 Refill(s) Humulin 2018-0 Yes 60 unit, [facility] 70/30 5-15 SUB-Q, l 18:44: QPM, 0 [place] 00 Refill(s) Humulin 2018-0 Yes 60 unit, [...] 70/30 5-15 SUB-Q, l 18:44: QPM, 0 [place] 00 Refill(s) Humulin 2018-0 Yes 60 unit, [facility] 70/30 5-15 SUB-Q, l 18:44: QPM, 0 [place] 00 Refill(s) Humulin 2018-0 Yes 60 unit, [facility] 70/30 5-15 SUB-Q, l 18:44: QPM, 0 [place] 00 Refill(s) Humulin 2018-0 Yes 60 unit, [facility] 70/30 5-15 SUB-Q, l 18:44: QPM, 0 [place] 00 Refill(s) Humulin 2018-0 Yes 60 unit, [facility] 70/30 5-15 SUB-Q, l 18:44: QPM, 0 [place] 00 Refill(s) Humulin 2018-0 Yes 60 unit, [facility] 70/30 5-15 SUB-Q, l 18:44: QPM, 0 [place] 00 Refill(s) Humulin 2018-0 Yes 60 unit, [facility] 70/30 5-15 SUB-Q, l 18:44: QPM, 0 [place] 00 Refill(s) Humulin 2018-0 Yes 60 unit, [facility] 70/30 5-15 SUB-Q, l 18:44: QPM, 0 [place] 00 Refill(s) Humulin 2018-0 Yes 60 unit, [facility] 70/30 5-15 SUB-Q, l 18:44: QPM, 0 [place] 00 Refill(s) Humulin 2018-0 Yes 60 unit, [facility] 70/30 5-15 SUB-Q, l 18:44: QPM, 0 [place] 00 Refill(s) Humulin 2018-0 Yes 60 unit, [facility] 70/30 5-15 SUB-Q, l 18:44: QPM, 0 [place] 00 Refill(s) Humulin 2018-0 Yes 60 unit, [facility] 70/30 5-15 SUB-Q, l 18:44: QPM, 0 [place] 00 Refill(s) Humulin 2018-0 Yes 60 unit, [facility] 70/30 5-15 SUB-Q, l 18:44: QPM, 0 [place] 00 Refill(s) Humulin 2018-0 Yes 60 unit, [facility] 70/30 5-15 SUB-Q, l 18:44: QPM, 0 [place] 00 Refill(s) Humulin 2018-0 Yes 60 unit, [facility] 70/30 5-15 SUB-Q, l 18:44: QPM, 0 [place] 00 Refill(s) Humulin 2017-0 Yes 60 unit, [facility] 70/30 5-15 SUB-Q, l 18:44: QPM, 0 [place] 00 Refill(s) Humulin 2018-0 Yes 60 unit, [facility] 70/30 5-15 SUB-Q, l 18:44: QPM, 0 [place] 00 Refill(s) Humulin 2017-0 Yes 60 unit, [facility] 70/30 5-15 SUB-Q, l 18:44: QPM, 0 [place] 00 Refill(s) Humulin 2018-0 Yes 60 unit, [facility] 70/30 5-15 SUB-Q, l 18:44: QPM, 0 [place] 00 Refill(s) Humulin 2018-0 Yes 60 unit, [facility] 70/30 5-15 SUB-Q, l 18:44: QPM, 0 [place] 00 Refill(s) Humulin 2018-0 Yes 60 unit, [facility] 70/30 5-15 SUB-Q, l 18:44: QPM, 0 [place] 00 Refill(s) Humulin 2018-0 Yes 60 unit, [facility] 70/30 5-15 SUB-Q, l 18:44: QPM, 0 [place] 00 Refill(s) Humulin 2017-0 Yes 60 unit, [facility] 70/30 5-15 [...] 70/30 5-15 SUB-Q, l 18:43: QAM, 0 [place] 00 Refill(s) Humulin 2018-0 Yes 70 unit, [facility] 70/30 5-15 SUB-Q, l 18:43: QAM, 0 [place] 00 Refill(s) Humulin 2018-0 Yes 70 unit, [facility] 70/30 5-15 SUB-Q, l 18:43: QAM, 0 [place] 00 Refill(s) Humulin 2018-0 Yes 70 unit, [facility] 70/30 5-15 SUB-Q, l 18:43: QAM, 0 [place] 00 Refill(s) Humulin 2018-0 Yes 70 unit, [facility] 70/30 5-15 SUB-Q, l 18:43: QAM, 0 [place] 00 Refill(s) Humulin 2018-0 Yes 70 unit, [facility] 70/30 5-15 SUB-Q, l 18:43: QAM, 0 [place] 00 Refill(s) Humulin 2018-0 Yes 70 unit, [facility] 70/30 5-15 SUB-Q, l 18:43: QAM, 0 [place] 00 Refill(s) Humulin 2018-0 Yes 70 unit, [facility] 70/30 5-15 SUB-Q, l 18:43: QAM, 0 [place] 00 Refill(s) Humulin 2018-0 Yes 70 unit, [facility] 70/30 5-15 SUB-Q, l 18:43: QAM, 0 [place] 00 Refill(s) Humulin 2018-0 Yes 70 unit, [facility] 70/30 5-15 SUB-Q, l 18:43: QAM, 0 [place] 00 Refill(s) Humulin 2018-0 Yes 70 unit, [facility] 70/30 5-15 SUB-Q, l 18:43: QAM, 0 [place] 00 Refill(s) Humulin 2018-0 Yes 70 unit, [facility] 70/30 5-15 SUB-Q, l 18:43: QAM, 0 [place] 00 Refill(s) Humulin 2018-0 Yes 70 unit, Memori a 70/30 5-15 SUB-Q, l 18:43: QAM, 0 [place] 00 Refill(s) Humulin 2018-0 Yes 70 unit, Memori a 70/30 5-15 SUB-Q, l 18:43: QAM, 0 [place] 00 Refill(s) Humulin 2018-0 Yes 70 unit, Memori a 70/30 5-15 SUB-Q, l 18:43: QAM, 0 [place] 00 Refill(s) Humulin 2018-0 Yes 70 unit, Memori a 70/30 5-15 SUB-Q, l 18:43: QAM, 0 [place] 00 Refill(s) Humulin 2018-0 Yes 70 unit, Memori a 70/30 5-15 SUB-Q, l 18:43: QAM, 0 [place] 00 Refill(s) Humulin 2018-0 Yes 70 unit, Memori a 70/30 5-15 SUB-Q, l 18:43: QAM, 0 [place] 00 Refill(s) Humulin 2018-0 Yes 70 unit, Memori a 70/30 5-15 SUB-Q, l 18:43: QAM, 0 [place] 00 Refill(s) Humulin 2018-0 Yes 70 unit, Memori a 70/30 5-15 SUB-Q, l 18:43: QAM, 0 [place] 00 Refill(s) Humulin 2018-0 Yes 70 unit, Memori a 70/30 5-15 SUB-Q, l 18:43: QAM, 0 [place] 00 Refill(s) Humulin 2018-0 Yes 70 unit, Memori a 70/30 5-15 SUB-Q, l 18:43: QAM, 0 [place] 00 Refill(s) Humulin 2018-0 Yes 70 unit, Mem[facility] a 70/30 5-15 SUB-Q, l 18:43: QAM, 0 [place] 00 Refill(s) Humulin 2018-0 Yes 70 unit, Mem[facility] a 70/30 5-15 SUB-Q, l 18:43: QAM, 0 [place] 00 Refill(s) Humulin 2018-0 Yes 70 unit, [...] 70/30 5-15 SUB-Q, l 18:43: QAM, 0 [place] 00 Refill(s) Humulin 2017-0 Yes 70 unit, Memori a 70/30 5-15 SUB-Q, l 18:43: QAM, 0 [place] 00 Refill(s) Humulin 2017-0 Yes 70 unit, Mem[facility] a 70/30 5-15 SUB-Q, l 18:43: QAM, 0 [place] 00 Refill(s) Humulin 2017-0 Yes 70 unit, Mem[facility] a 70/30 5-15 SUB-Q, l 18:43: QAM, 0 [place] 00 Refill(s) Humulin 2018-0 Yes 70 unit, Mem[facility] a 70/30 5-15 SUB-Q, l 18:43: QAM, 0 [place] 00 Refill(s) Humulin 2017-0 Yes 70 unit, Memori a 70/30 5-15 SUB-Q, l 18:43: QAM, 0 [place] 00 Refill(s) Humulin 2017-0 Yes 70 unit, [...] 70/30 5-15 SUB-Q, l 18:43: QAM, 0 [place] 00 Refill(s) Humulin 2018-0 Yes 70 unit, Memori a 70/30 5-15 SUB-Q, l 18:43: QAM, 0 [place] 00 Refill(s) Humulin 2017-0 Yes 70 unit, Memori a 70/30 5-15 SUB-Q, l 18:43: QAM, 0 [place] 00 Refill(s) Humulin 2017-0 Yes 70 unit, Memori a 70/30 5-15 SUB-Q, l 18:43: QAM, 0 [place] 00 Refill(s) Humulin 2018-0 Yes 70 unit, Mem[facility] a 70/30 5-15 SUB-Q, l 18:43: QAM, 0 [place] 00 Refill(s) Humulin 2018-0 Yes 70 unit, Mem[facility] a 70/30 5-15 SUB-Q, l 18:43: QAM, 0 [place] 00 Refill(s) Humulin 2018-0 Yes 70 unit, Memori a 70/30 5-15 SUB-Q, l 18:43: QAM, 0 [place] 00 Refill(s) Humulin 2018-0 Yes 70 unit, [facility] a 70/30 5-15 SUB-Q, l 18:43: QAM, 0 [place] 00 Refill(s) Humulin 2018-0 Yes 70 unit, [...] 70/30 5-15 SUB-Q, l 18:43: QAM, 0 [place] 00 Refill(s) Humulin Yes 70 unit, Memori [...] for Wheezing or Shortness of Breath. Alprazolam 2016 Yes 2 mg = 1 [facility] 2 MG Oral 1-07 tab, PO, l Tablet 16:37: TID, 0 [place] [Xanax] 00 Refill(s) Alprazolam 2016 Yes 2 mg = 1 [facility] 2 MG Oral 1-07 tab, PO, l Tablet 16:37: TID, 0 [place] [Xanax] 00 Refill(s) Alprazolam 2016 Yes 2 mg = 1 [facility] 2 MG Oral 1-07 tab, PO, l Tablet 16:37: TID, 0 [place] [Xanax] 00 Refill(s) Alprazolam 20160 Yes 2 mg = 1 [facility] 2 MG Oral 1-07 tab, PO, l Tablet 16:37: TID, 0 [place] [Xanax] 00 Refill(s) Alprazolam 20160 Yes 2 mg = 1 [facility] 2 MG Oral 1-07 tab, PO, l Tablet 16:37: TID, 0 [place] [Xanax] 00 Refill(s) Alprazolam 20160 Yes 2 mg = 1 [facility] 2 MG Oral 1-07 tab, PO, l Tablet 16:37: TID, 0 [place] [Xanax] 00 Refill(s) Alprazolam 20160 Yes 2 mg = 1 [facility] 2 MG Oral 1-07 tab, PO, l Tablet 16:37: TID, 0 [place] [Xanax] 00 Refill(s) Alprazolam 2016 Yes 2 mg = 1 [facility] 2 MG Oral 1-07 tab, PO, l Tablet 16:37: TID, 0 [place] [Xanax] 00 Refill(s) Alprazolam 2016-0 Yes 2 mg = 1 [facility] 2 MG Oral 1-07 tab, PO, l Tablet 16:37: TID, 0 [place] [Xanax] 00 Refill(s) Alprazolam 20160 Yes 2 mg = 1 [facility] 2 MG Oral 1-07 tab, PO, l Tablet 16:37: TID, 0 [place] [Xanax] 00 Refill(s) Alprazolam 20160 Yes 2 [...] tab, PO, l Tablet 16:37: TID, 0 [place] [Xanax] 00 Refill(s) Alprazolam 20160 Yes 2 mg = 1 [facility] 2 MG Oral 1-07 tab, PO, l Tablet 16:37: TID, 0 [place] [Xanax] 00 Refill(s) Alprazolam 20160 Yes 2 mg = 1 [facility] 2 MG Oral -07 tab, PO, l Tablet 16:37: TID, 0 [place] [Xanax] 00 Refill(s) Alprazolam 20160 Yes 2 mg = 1 [facility] 2 MG Oral 1-07 tab, PO, l Tablet 16:37: TID, 0 [place] [Xanax] 00 Refill(s) Alprazolam 20160 Yes 2 mg = 1 [facility] 2 MG Oral 1-07 tab, PO, l Tablet 16:37: TID, 0 [place] [Xanax] 00 Refill(s) Alprazolam 2016-0 Yes 2 mg = 1 [facility] 2 MG Oral 1-07 tab, PO, l Tablet 16:37: TID, 0 [place] [Xanax] 00 Refill(s) Alprazolam 20160 Yes 2 mg = 1 [facility] 2 MG Oral -07 tab, PO, l Tablet 16:37: TID, 0 [place] [Xanax] 00 Refill(s) Alprazolam 20160 Yes 2 mg = 1 [facility] 2 MG Oral 07 tab, PO, l Tablet 16:37: TID, 0 [place] [Xanax] 00 Refill(s) Alprazolam 20160 Yes 2 mg = 1 [facility] 2 MG Oral -07 tab, PO, l Tablet 16:37: TID, 0 [place] [Xanax] 00 Refill(s) Alprazolam 20160 Yes 2 mg = 1 [facility] 2 MG Oral -07 tab, PO, l Tablet 16:37: TID, 0 [place] [Xanax] 00 Refill(s) Alprazolam 20160 Yes 2 mg = 1 [facility] 2 MG Oral 07 tab, PO, l Tablet 16:37: TID, 0 [place] [Xanax] 00 Refill(s) Alprazolam 20160 Yes 2 mg = 1 [facility] 2 MG Oral 07 tab, PO, l Tablet 16:37: TID, 0 [place] [Xanax] 00 Refill(s) Alprazolam 20160 Yes 2 mg = 1 [facility] 2 MG Oral 07 tab, PO, l Tablet 16:37: TID, 0 [place] [Xanax] 00 Refill(s) Alprazolam 20160 Yes 2 mg = 1 [facility] 2 MG Oral -07 tab, PO, l Tablet 16:37: TID, 0 [place] [Xanax] 00 Refill(s) Alprazolam 20160 Yes 2 [...] tab, PO, l Tablet 16:37: TID, 0 [place] [Xanax] 00 Refill(s) Alprazolam 20160 Yes 2 mg = 1 [facility] 2 MG Oral -07 tab, PO, l Tablet 16:37: TID, 0 [place] [Xanax] 00 Refill(s) Alprazolam 20160 Yes 2 mg = 1 [facility] 2 MG Oral - tab, PO, l Tablet 16:37: TID, 0 [place] [Xanax] 00 Refill(s) Alprazolam 20160 Yes 2 mg = 1 [facility] 2 MG Oral 11-07 tab, PO, l Tablet 16:37: TID, 0 [place] [Xanax] 00 Refill(s) Alprazolam 20160 Yes 2 mg = 1 [facility] 2 MG Oral - tab, PO, l Tablet 16:37: TID, 0 [place] [Xanax] 00 Refill(s) Alprazolam 20160 Yes 2 mg = 1 [facility] 2 MG Oral - tab, PO, l Tablet 16:37: TID, 0 [place] [Xanax] 00 Refill(s) Alprazolam 20160 Yes 2 [...] tab, PO, l Tablet 16:37: TID, 0 [place] [Xanax] 00 Refill(s) Alprazolam 20160 Yes 2 mg = 1 [facility] 2 MG Oral -07 tab, PO, l Tablet 16:37: TID, 0 [place] [Xanax] 00 Refill(s) Alprazolam 20160 Yes 2 mg = 1 [facility] 2 MG Oral -07 tab, PO, l Tablet 16:37: TID, 0 [place] [Xanax] 00 Refill(s) Alprazolam 20160 Yes 2 mg = 1 [facility] 2 MG Oral 07 tab, PO, l Tablet 16:37: TID, 0 [place] [Xanax] 00 Refill(s) Alprazolam 20160 Yes 2 mg = 1 [facility] 2 MG Oral 11-07 tab, PO, l Tablet 16:37: TID, 0 [place] [Xanax] 00 Refill(s) Alprazolam 2016 Yes 2 mg = 1 [facility] 2 MG Oral 11-07 tab, PO, l Tablet 16:37: TID, 0 [place] [Xanax] 00 Refill(s) Alprazolam 2016 Yes 2 mg = 1 [facility] 2 MG Oral 11-07 tab, PO, l Tablet 16:37: TID, 0 [place] [Xanax] 00 Refill(s) Alprazolam 20160 Yes 2 mg = 1 [facility] 2 MG Oral 11-07 tab, PO, l Tablet 16:37: TID, 0 [place] [Xanax] 00 Refill(s) Alprazolam 20160 Yes 2 mg = 1 [facility] 2 MG Oral 11-07 tab, PO, l Tablet 16:37: TID, 0 [place] [Xanax] 00 Refill(s) Alprazolam 20160 Yes 2 [...] tab, PO, l Tablet 16:37: TID, 0 [place] [Xanax] 00 Refill(s) Alprazolam Yes 2 mg = 1 [facility] 2 MG Oral 07 tab, PO, l Tablet 16:37: TID, 0 [place] [Xanax] 00 Refill(s) Alprazolam Yes 2 mg = 1 [facility] 2 MG Oral -07 tab, PO, l Tablet 16:37: TID, 0 [place] [Xanax] 00 Refill(s) Alprazolam Yes 2 mg = 1 [facility] 2 MG Oral -07 tab, PO, l Tablet 16:37: TID, 0 [place] [Xanax] 00 Refill(s) Nitroglycer Yes 0.4 mg [...] Pain, # 100 tab, 0 Refill(s) Nitroglycer 2016 Yes 0.4 mg = 1 Mem[facility] in [...] Codeine 16:21: Refill(s) [place] nn 00 Acetaminoph 0 Yes 1 tab, PO, Memoria en 325 MG / 1-07 BID, 0 l Hydrocodone 16:19: Refill(s) [place] Bitartrate 00 10 MG Oral Tablet [[place] 10/325] Acetaminoph Yes 1 tab, PO, [facility] en 325 MG / 1-07 BID, 0 l Hydrocodone 16:19: Refill(s) [place] Bitartrate 00 10 MG Oral Tablet [[place] 10/325] Acetaminoph Yes 1 tab, PO, [facility] en 325 MG / 1-07 BID, 0 l Hydrocodone 16:19: Refill(s) [place] Bitartrate 00 10 MG Oral Tablet [[place] 10/325] Acetaminoph Yes 1 tab, PO, [facility] en 325 MG / 1-07 BID, 0 l Hydrocodone 16:19: Refill(s) [place] Bitartrate 00 10 MG Oral Tablet [[place] 10/325] Acetaminoph Yes 1 tab, PO, [facility] en 325 MG / 1-07 BID, 0 l Hydrocodone 16:19: Refill(s) [place] Bitartrate 00 10 MG Oral Tablet [[place] 10/325] Acetaminoph Yes 1 tab, PO, [facility] en 325 MG / 1-07 BID, 0 l Hydrocodone 16:19: Refill(s) [place] Bitartrate 00 10 MG Oral Tablet [[place] 10/325] Acetaminoph Yes 1 tab, PO, [facility] en 325 MG / 1-07 BID, 0 l Hydrocodone 16:19: Refill(s) [place] Bitartrate 00 10 MG Oral Tablet [[place] 10/325] Acetaminoph Yes 1 tab, PO, [facility] en 325 MG / 1-07 BID, 0 l Hydrocodone 16:19: Refill(s) [place] Bitartrate 00 10 MG Oral Tablet [[place] 10/325] Acetaminoph Yes 1 tab, PO, [facility] en 325 MG / 1-07 BID, 0 l Hydrocodone 16:19: Refill(s) [place] Bitartrate 00 10 MG Oral Tablet [[place] 10/325] Acetaminoph Yes 1 tab, PO, [facility] en 325 MG / 1-07 BID, 0 l Hydrocodone 16:19: Refill(s) [place] Bitartrate 00 10 MG Oral Tablet [[place] 10/325] Acetaminoph Yes 1 tab, PO, [facility] en 325 MG / 1-07 BID, 0 l Hydrocodone 16:19: Refill(s) [place] Bitartrate 00 10 MG Oral Tablet [[place] 10/325] Acetaminoph Yes 1 tab, PO, [facility] en 325 MG / 1-07 BID, 0 l Hydrocodone 16:19: Refill(s) [place] Bitartrate 00 10 MG Oral Tablet [[place] 10/325] Acetaminoph Yes 1 tab, PO, [facility] en 325 MG / 1-07 BID, 0 l Hydrocodone 16:19: Refill(s) [place] Bitartrate 00 10 MG Oral Tablet [[place] 10/325] Acetaminoph Yes 1 tab, PO, [facility] en 325 MG / 1-07 BID, 0 l Hydrocodone 16:19: Refill(s) [place] Bitartrate 00 10 MG Oral Tablet [[place] 10/325] Acetaminoph Yes 1 tab, PO, [facility] en 325 MG / 1-07 BID, 0 l Hydrocodone 16:19: Refill(s) [place] Bitartrate 00 10 MG Oral Tablet [[place] 10/325] Acetaminoph Yes 1 tab, PO, [facility] en 325 MG / 1-07 BID, 0 l Hydrocodone 16:19: Refill(s) [place] Bitartrate 00 10 MG Oral Tablet [[place] 10/325] Acetaminoph Yes 1 tab, PO, Mem[facility] en 325 MG / 1-07 BID, 0 l Hydrocodone 16:19: Refill(s) [place] Bitartrate 00 10 MG Oral Tablet [[place] 10/325] Acetaminoph Yes 1 tab, PO, [facility] en 325 MG / 1-07 BID, 0 l Hydrocodone 16:19: Refill(s) [place] Bitartrate 00 10 MG Oral Tablet [[place] 10/325] Acetaminoph Yes 1 tab, PO, [facility] en 325 MG / 1-07 BID, 0 l Hydrocodone 16:19: Refill(s) [place] Bitartrate 00 10 MG Oral Tablet [[place] 10/325] Acetaminoph Yes 1 tab, PO, [facility] en 325 MG / 1-07 BID, 0 l Hydrocodone 16:19: Refill(s) [place] Bitartrate 00 10 MG Oral Tablet [[place] 10/325] Acetaminoph Yes 1 tab, PO, [facility] en 325 MG / 1-07 BID, 0 l Hydrocodone 16:19: Refill(s) [place] Bitartrate 00 10 MG Oral Tablet [[place] 10/325] Acetaminoph Yes 1 tab, PO, [facility] en 325 MG / 1-07 BID, 0 l Hydrocodone 16:19: Refill(s) [place] Bitartrate 00 10 MG Oral Tablet [[place] 10/325] Acetaminoph Yes 1 tab, PO, Mem[facility] en 325 MG / 1-07 BID, 0 l Hydrocodone 16:19: Refill(s) [place] Bitartrate 00 10 MG Oral Tablet [[place] 10/325] Acetaminoph Yes 1 tab, PO, [facility] en 325 MG / 1-07 BID, 0 l Hydrocodone 16:19: Refill(s) [place] Bitartrate 00 10 MG Oral Tablet [[place] 10/325] Acetaminoph Yes 1 tab, PO, [facility] en 325 MG / 1-07 BID, 0 l Hydrocodone 16:19: Refill(s) [place] Bitartrate 00 10 MG Oral Tablet [[place] 10/325] Acetaminoph Yes 1 tab, PO, [facility] en 325 MG / 1-07 BID, 0 l Hydrocodone 16:19: Refill(s) [place] Bitartrate 00 10 MG Oral Tablet [[place] 10/325] Acetaminoph Yes 1 tab, PO, [facility] en 325 MG / 1-07 BID, 0 l Hydrocodone 16:19: Refill(s) [place] Bitartrate 00 10 MG Oral Tablet [[place] 10/325] Acetaminoph Yes 1 tab, PO, [facility] en 325 MG / 1-07 BID, 0 l Hydrocodone 16:19: Refill(s) [place] Bitartrate 00 10 MG Oral Tablet [[place] 10/325] Acetaminoph Yes 1 tab, PO, [facility] en 325 MG / 1-07 BID, 0 l Hydrocodone 16:19: Refill(s) [place] Bitartrate 00 10 MG Oral Tablet [[place] 10/325] Acetaminoph Yes 1 tab, PO, [facility] en 325 MG / 1-07 BID, 0 l Hydrocodone 16:19: Refill(s) [place] Bitartrate 00 10 MG Oral Tablet [[place] 10/325] Acetaminoph Yes 1 tab, PO, [facility] en 325 MG / 1-07 BID, 0 l Hydrocodone 16:19: Refill(s) [place] Bitartrate 00 10 MG Oral Tablet [[place] 10/325] Acetaminoph Yes 1 tab, PO, [facility] en 325 MG / 1-07 BID, 0 l Hydrocodone 16:19: Refill(s) [place] Bitartrate 00 10 MG Oral Tablet [[place] 10/325] Acetaminoph Yes 1 tab, PO, [facility] en 325 MG / 1-07 BID, 0 l Hydrocodone 16:19: Refill(s) [place] Bitartrate 00 10 MG Oral Tablet [[place] 10/325] Acetaminoph Yes 1 tab, PO, [facility] en 325 MG / 1-07 BID, 0 l Hydrocodone 16:19: Refill(s) [place] Bitartrate 00 10 MG Oral Tablet [[place] 10/325] Acetaminoph Yes 1 tab, PO, [facility] en 325 MG / 1-07 BID, 0 l Hydrocodone 16:19: Refill(s) [place] Bitartrate 00 10 MG Oral Tablet [[place] 10/325] Acetaminoph Yes 1 tab, PO, [facility] en 325 MG / 1-07 BID, 0 l Hydrocodone 16:19: Refill(s) [place] Bitartrate 00 10 MG Oral Tablet [[place] 10/325] Acetaminoph Yes 1 tab, PO, Mem[facility] en 325 MG / 1-07 BID, 0 l Hydrocodone 16:19: Refill(s) [place] Bitartrate 00 10 MG Oral Tablet [[place] 10/325] Acetaminoph Yes 1 tab, PO, Mem[facility] en 325 MG / 1-07 BID, 0 l Hydrocodone 16:19: Refill(s) [place] Bitartrate 00 10 MG Oral Tablet [[place] 10/325] Acetaminoph Yes 1 tab, PO, Mem[facility] en 325 MG / 1-07 BID, 0 l Hydrocodone 16:19: Refill(s) [place] Bitartrate 00 10 MG Oral Tablet [[place] 10/325] Acetaminoph Yes 1 tab, PO, Mem[facility] en 325 MG / 1-07 BID, 0 l Hydrocodone 16:19: Refill(s) [place] Bitartrate 00 10 MG Oral Tablet [[place] 10/325] Acetaminoph Yes 1 tab, PO, [facility] en 325 MG / 1-07 BID, 0 l Hydrocodone 16:19: Refill(s) [place] Bitartrate 00 10 MG Oral Tablet [[place] 10/325] Acetaminoph Yes 1 tab, PO, Mem[facility] en 325 MG / 1-07 BID, 0 l Hydrocodone 16:19: Refill(s) [place] Bitartrate 00 10 MG Oral Tablet [[place] 10/325] Acetaminoph Yes 1 tab, PO, Mem[facility] en 325 MG / 1-07 BID, 0 l Hydrocodone 16:19: Refill(s) [place] Bitartrate 00 10 MG Oral Tablet [[place] 10/325] Acetaminoph Yes 1 tab, PO, Mem[facility] en 325 MG / 1-07 BID, 0 l Hydrocodone 16:19: Refill(s) [place] Bitartrate 00 10 MG Oral Tablet [[place] 10/325] Acetaminoph Yes 1 tab, PO, Mem[facility] en 325 MG / 1-07 BID, 0 l Hydrocodone 16:19: Refill(s) [place] Bitartrate 00 10 MG Oral Tablet [[place] 10/325] Acetaminoph Yes 1 tab, PO, Mem[facility] en 325 MG / 1-07 BID, 0 l Hydrocodone 16:19: Refill(s) [place] Bitartrate 00 10 MG Oral Tablet [[place] 10/325] Acetaminoph Yes 1 tab, PO, Mem[facility] en 325 MG / 1-07 BID, 0 l Hydrocodone 16:19: Refill(s) [place] Bitartrate 00 10 MG Oral Tablet [[place] 10/325] Acetaminoph Yes 1 tab, PO, Mem[facility] en 325 MG / 1-07 BID, 0 l Hydrocodone 16:19: Refill(s) [place] Bitartrate 00 10 MG Oral Tablet [[place] 10/325] Acetaminoph Yes 1 tab, PO, Memoria en 325 MG / 1-07 BID, 0 l Hydrocodone 16:19: Refill(s) [place] Bitartrate 00 10 MG Oral Tablet [[place] 10/325] Acetaminoph Yes 1 tab, PO, Memoria en 325 MG / -07 BID, 0 l Hydrocodone 16:19: Refill(s) [place] Bitartrate 00 10 MG Oral Tablet [[place] 10/325] Acetaminoph Yes 1 tab, PO, Memoria en 325 MG / -07 BID, 0 l Hydrocodone 16:19: Refill(s) [place] Bitartrate 00 10 MG Oral Tablet [[place] 10/325] Acetaminoph Yes 1 tab, PO, Mem[facility] en 325 MG / -07 BID, 0 l Hydrocodone 16:19: Refill(s) [place] Bitartrate 00 10 MG Oral Tablet [[place] 10/325] Acetaminoph Yes 1 tab, PO, Memoria en 325 MG / 11-07 BID, 0 l Hydrocodone 16:19: Refill(s) [place] Bitartrate 00 10 MG Oral Tablet [[place] 10/325] Acetaminoph Yes 1 tab, PO, Memoria en 325 MG / 07 BID, 0 l Hydrocodone 16:19: Refill(s) [place] Bitartrate 00 10 MG Oral Tablet [[place] 10/325] Acetaminoph Yes 1 tab, PO, Mem[facility] en 325 MG / -07 BID, 0 l Hydrocodone 16:19: Refill(s) [place] Bitartrate 00 10 MG Oral Tablet [[place] 10/325] Acetaminoph Yes 1 tab, PO, Memoria en 325 MG / 07 BID, 0 l Hydrocodone 16:19: Refill(s) [place] Bitartrate 00 10 MG Oral Tablet [[place] 10/325] Acetaminoph Yes 1 tab, PO, Mem[facility] en 325 MG / -07 BID, 0 l Hydrocodone 16:19: Refill(s) [place] Bitartrate 00 10 MG Oral Tablet [[place] 10/325] tizanidine Yes 4 mg = 1 [...] l MG Oral 16:18: Bedtime, 0 [facility] flkaita Tablet 00 Refill(s) [Ambien] tizanidine 2016-0 Yes [...] = 1 Mem oria 4 MG Oral - cap, PO, l Capsule 16:18: BID, # [...] PO, l Capsule 16:18: BID, # 90 [place] nn [Zanaflex] 00 cap, 0 Refill(s) Zolpidem [...] = 1 [facility] 4 MG Oral - cap, PO, l Capsule 16:18: BID, # 90 [place] nn [Zanaflex] 00 cap, 0 Refill(s) Zolpidem 2016-0 Yes 5 mg = 1 Memor ia tartrate 5 -07 tab, PO, l MG Oral 16:18: Bedtime, 0 [place] flakita Tablet 00 Refill(s) [Ambien] tizanidine 2016-0 Yes 4 mg = 1 [facility] 4 MG Oral - cap, PO, l Capsule 16:18: BID, # [...] [facility] flakita Tablet 00 Refill(s) [Ambien] cephalexin 2015-0 Yes 500 mg = 1 M emoria 500 mg oral 1-07 cap, PO, l capsule 16:17: BID, 0 [place] 00 Refill(s) cephalexin 2015-0 Yes 500 mg = 1 M emoria 500 mg oral 1-07 cap, PO, l capsule 16:17: BID, 0 [place] 00 Refill(s) cephalexin 2016-0 Yes 500 mg [...] cap, PO, l capsule 16:17: BID, 0 [place] 00 Refill(s) cephalexin 2016-0 Yes 500 mg = 1 M emoria 500 mg oral 1-07 cap, PO, l capsule 16:17: BID, 0 [place] 00 Refill(s) cephalexin 2016-0 Yes 500 mg [...] cap, PO, l capsule 16:17: BID, 0 [place] 00 Refill(s) cephalexin 2016-0 Yes 500 mg [...] cap, PO, l capsule 16:17: BID, 0 [place] 00 Refill(s) cephalexin 2016-0 Yes 500 mg = 1 M emoria 500 mg oral 1-07 cap, PO, l capsule 16:17: BID, 0 [place] 00 Refill(s) cephalexin 2016-0 Yes 500 mg = 1 M emoria 500 mg oral 1-07 cap, PO, l capsule 16:17: BID, 0 [place] 00 Refill(s) cephalexin 2016-0 Yes 500 mg = 1 M emoria 500 mg oral 1-07 cap, PO, l capsule 16:17: BID, 0 [place] 00 Refill(s) cephalexin 2016-0 Yes 500 mg = 1 M emoria 500 mg oral 1-07 cap, PO, l capsule 16:17: BID, 0 [place] 00 Refill(s) cephalexin 2016-0 Yes 500 mg [...] cap, PO, l capsule 16:17: BID, 0 [place] 00 Refill(s) cephalexin 2016-0 Yes 500 mg = 1 M emoria 500 mg oral 1-07 cap, PO, l capsule 16:17: BID, 0 [place] 00 Refill(s) cephalexin 2016-0 Yes 500 mg = 1 M emoria 500 mg oral 1-07 cap, PO, l capsule 16:17: BID, 0 [place] 00 Refill(s) cephalexin 2016-0 Yes 500 mg = 1 M emoria 500 mg oral 1-07 cap, PO, l capsule 16:17: BID, 0 [place] 00 Refill(s) cephalexin 2016-0 Yes 500 mg = 1 M emoria 500 mg oral 1-07 cap, PO, l capsule 16:17: BID, 0 [place] 00 Refill(s) cephalexin 2015-0 Yes 500 mg = 1 M emoria 500 mg oral 1-07 cap, PO, l capsule 16:17: BID, 0 [place] 00 Refill(s) cephalexin 2015-0 Yes 500 mg = 1 M emoria 500 mg oral 1-07 cap, PO, l capsule 16:17: BID, 0 [place] 00 Refill(s) cephalexin 2015-0 Yes 500 mg = 1 M emoria 500 mg oral 1-07 cap, PO, l capsule 16:17: BID, 0 [place] 00 Refill(s) cephalexin 2016-0 Yes 500 mg = 1 M emoria 500 mg oral 1-07 cap, PO, l capsule 16:17: BID, 0 [place] 00 Refill(s) cephalexin 2016-0 Yes 500 mg = 1 M emoria 500 mg oral 1-07 cap, PO, l capsule 16:17: BID, 0 [place] 00 Refill(s) cephalexin 2016-0 Yes 500 mg = 1 M emoria 500 mg oral 1-07 cap, PO, l capsule 16:17: BID, 0 [place] 00 Refill(s) cephalexin 2016-0 Yes 500 mg [...] cap, PO, l capsule 16:17: BID, 0 [place] 00 Refill(s) cephalexin 2016-0 Yes 500 mg [...] cap, PO, l capsule 16:17: BID, 0 [place] 00 Refill(s) cephalexin 2016-0 Yes 500 mg = 1 M emoria 500 mg oral 1-07 cap, PO, l capsule 16:17: BID, 0 [place] 00 Refill(s) cephalexin 2016-0 Yes 500 mg = 1 M emoria 500 mg oral 1-07 cap, PO, l capsule 16:17: BID, 0 [place] 00 Refill(s) cephalexin 2016-0 Yes 500 mg = 1 M emoria 500 mg oral 1-07 cap, PO, l capsule 16:17: BID, 0 [place] 00 Refill(s) cephalexin 2016-0 Yes 500 mg = 1 M emoria 500 mg oral 1-07 cap, PO, l capsule 16:17: BID, 0 [place] 00 Refill(s) cephalexin 2016-0 Yes 500 mg = 1 M emoria 500 mg oral 1-07 cap, PO, l capsule 16:17: BID, 0 [place] 00 Refill(s) cephalexin 2016-0 Yes 500 mg = 1 M emoria 500 mg oral 1-07 cap, PO, l capsule 16:17: BID, 0 [place] 00 Refill(s) cephalexin 2016-0 Yes 500 mg [...] cap, PO, l capsule 16:17: BID, 0 [place] 00 Refill(s) cephalexin 2015-0 Yes 500 mg [...] cap, PO, l capsule 16:17: BID, 0 [place] 00 Refill(s) cephalexin 2016-0 Yes 500 mg [...] PO, l Oral Tablet 16:16: Bedtime, 0 [place] [Lipitor] 00 Refill(s) duloxetine Yes 60 mg = 1 Me moria 60 MG 1-07 cap, PO, l Enteric 16:16: Daily, 0 [place] n Co[place] 00 Refill(s) Capsule [Cymbalta] atorvastati Yes 40 mg = 1 M emoria n 40 MG 1-07 tab, PO, l Oral Tablet 16:16: Bedtime, 0 [place] [Lipitor] 00 Refill(s) duloxetine Yes 60 mg [...] PO, l Oral Tablet 16:16: Bedtime, 0 [place] [Lipitor] 00 Refill(s) duloxetine Yes 60 mg [...] PO, l Oral Tablet 16:16: Bedtime, 0 [place] [Lipitor] 00 Refill(s) duloxetine Yes 60 mg = 1 Me moria 60 MG 1-07 cap, PO, l Enteric 16:16: Daily, 0 [place] Coated 00 Refill(s) Capsule [Cymbalta] atorvastati Yes 40 mg = 1 M emoria n 40 MG 1-07 tab, PO, l Oral Tablet 16:16: Bedtime, 0 [place] [Lipitor] 00 Refill(s) duloxetine Yes 60 mg = 1 Me moria 60 MG 1-07 cap, PO, l Enteric 16:16: Daily, 0 [place] Co[place] 00 Refill(s) Capsule [Cymbalta] atorvastati Yes 40 mg = 1 M emoria n 40 MG 1-07 tab, PO, l Oral Tablet 16:16: Bedtime, 0 [place] [Lipitor] 00 Refill(s) duloxetine Yes 60 mg = 1 Me moria 60 MG 1-07 cap, PO, l Enteric 16:16: Daily, 0 [place] Co[place] 00 Refill(s) Capsule [Cymbalta] atorvastati Yes 40 mg = 1 M emoria n 40 MG 1-07 tab, PO, l Oral Tablet 16:16: Bedtime, 0 [place] [Lipitor] 00 Refill(s) duloxetine Yes 60 mg [...] PO, l Oral Tablet 16:16: Bedtime, 0 [place] [Lipitor] 00 Refill(s) duloxetine Yes 60 mg [...] PO, l Oral Tablet 16:16: Bedtime, 0 [place] [Lipitor] 00 Refill(s) duloxetine Yes 60 mg = 1 Me moria 60 MG 1-07 cap, PO, l Enteric 16:16: Daily, 0 [place] Co[place] 00 Refill(s) Capsule [Cymbalta] atorvastati Yes 40 mg = 1 M emoria n 40 MG 1-07 tab, PO, l Oral Tablet 16:16: Bedtime, 0 [place] [Lipitor] 00 Refill(s) duloxetine Yes 60 mg = 1 Me moria 60 MG 1-07 cap, PO, l Enteric 16:16: Daily, 0 [place] Coated 00 Refill(s) Capsule [Cymbalta] atorvastati Yes 40 mg = 1 M emoria n 40 MG 1-07 tab, PO, l Oral Tablet 16:16: Bedtime, 0 [place] [Lipitor] 00 Refill(s) duloxetine Yes 60 mg [...] PO, l Oral Tablet 16:16: Bedtime, 0 [place] [Lipitor] 00 Refill(s) duloxetine Yes 60 mg [...] PO, l Oral Tablet 16:16: Bedtime, 0 [place] [Lipitor] 00 Refill(s) duloxetine 2016 Yes 60 mg = 1 Me moria [...] PO, l Oral Tablet 16:16: Bedtime, 0 [place] [Lipitor] 00 Refill(s) duloxetine Yes 60 mg = 1 Me moria 60 MG 1-07 cap, PO, l Enteric 16:16: Daily, 0 [place] n Coated 00 Refill(s) Capsule [Cymbalta] atorvastati Yes 40 mg = 1 M emoria n 40 MG 1-07 tab, PO, l Oral Tablet 16:16: Bedtime, 0 [place] [Lipitor] 00 Refill(s) duloxetine Yes 60 mg [...] PO, l Oral Tablet 16:16: Bedtime, 0 [place] [Lipitor] 00 Refill(s) duloxetine Yes 60 mg [...] PO, l Oral Tablet 16:16: Bedtime, 0 [place] [Lipitor] 00 Refill(s) duloxetine Yes 60 mg = 1 Me moria 60 MG 1-07 cap, PO, l Enteric 16:16: Daily, 0 [place] n Coated 00 Refill(s) Capsule [Cymbalta] atorvastati Yes 40 mg = 1 M emoria n 40 MG 1-07 tab, PO, l Oral Tablet 16:16: Bedtime, 0 [place] [Lipitor] 00 Refill(s) duloxetine Yes 60 mg [...] PO, l Oral Tablet 16:16: Bedtime, 0 [place] [Lipitor] 00 Refill(s) duloxetine Yes 60 mg = 1 Me moria 60 MG 1-07 cap, PO, l Enteric 16:16: Daily, 0 [place] n Coated 00 Refill(s) Capsule [Cymbalta] atorvastati Yes 40 mg = 1 M emoria n 40 MG 1-07 tab, PO, l Oral Tablet 16:16: Bedtime, 0 [place] [Lipitor] 00 Refill(s) duloxetine Yes 60 mg [...] PO, l Oral Tablet 16:16: Bedtime, 0 [place] [Lipitor] 00 Refill(s) duloxetine Yes 60 mg = 1 Me moria 60 MG 1-07 cap, PO, l Enteric 16:16: Daily, 0 [place] n Coated 00 Refill(s) Capsule [Cymbalta] atorvastati Yes 40 mg = 1 M emoria n 40 MG 1-07 tab, PO, l Oral Tablet 16:16: Bedtime, 0 [place] [Lipitor] 00 Refill(s) duloxetine Yes 60 mg = 1 Me moria 60 MG 1-07 cap, PO, l Enteric 16:16: Daily, 0 [place] Coated 00 Refill(s) Capsule [Cymbalta] atorvastati Yes 40 mg = 1 M emoria n 40 MG 1-07 tab, PO, l Oral Tablet 16:16: Bedtime, 0 [place] [Lipitor] 00 Refill(s) duloxetine Yes 60 mg [...] PO, l Oral Tablet 16:16: Bedtime, 0 [place] [Lipitor] 00 Refill(s) duloxetine Yes 60 mg = 1 Me moria 60 MG 1-07 cap, PO, l Enteric 16:16: Daily, 0 [place] Coated 00 Refill(s) Capsule [Cymbalta] atorvastati Yes 40 mg = 1 M emoria n 40 MG 1-07 tab, PO, l Oral Tablet 16:16: Bedtime, 0 [place] [Lipitor] 00 Refill(s) duloxetine Yes 60 mg [...] Bedtime, 0 [place] [Lipitor] 00 Refill(s) duloxetine 2016 Yes 60 mg = 1 Me moria [...] PO, l Oral Tablet 16:16: Bedtime, 0 [place] [Lipitor] 00 Refill(s) duloxetine Yes 60 mg = 1 Me moria 60 MG 1-07 cap, PO, l Enteric 16:16: Daily, 0 [place] Coated 00 Refill(s) Capsule [Cymbalta] atorvastati Yes 40 mg = 1 M emoria n 40 MG 1-07 tab, PO, l Oral Tablet 16:16: Bedtime, 0 [place] [Lipitor] 00 Refill(s) duloxetine Yes 60 mg = 1 Me moria 60 MG 1-07 cap, PO, l Enteric 16:16: Daily, 0 [place] Coated 00 Refill(s) Capsule [Cymbalta] atorvastati Yes 40 mg = 1 M emoria n 40 MG 1-07 tab, PO, l Oral Tablet 16:16: Bedtime, 0 [place] [Lipitor] 00 Refill(s) promethazin Yes 25 mg [...] [place] nn 00 Meals, 0 Refill(s) promethazin 2016- Yes 25 mg = 1 M emoria [...] [place] 00 Meals, 0 Refill(s) promethazin 2015-0 Yes 25 mg = 1 M emoria e 25 mg 1-07 tab, PO, l oral tablet 16:15: PRN, 0 [facility] fl[place] 00 Refill(s) sucralfate 2015-0 Yes 1 gm = 1 Mem oria 1 g oral 1-07 tab, PO, l tablet 16:15: QID-Before [place] nn 00 Meals, 0 Refill(s) promethazin 2015-0 Yes 25 mg = 1 M emoria e 25 mg 1-07 tab, PO, l oral tablet 16:15: PRN, 0 [place] 00 Refill(s) sucralfate 0 Yes 1 gm = 1 [facility] 1 g oral 1-07 tab, PO, l tablet 16:15: QID-Before [place] nn Meals, 0 Refill(s) promethazin 2016-0 Yes 25 mg = 1 M emoria e 25 mg 1-07 tab, PO, l oral tablet 16:15: PRN, 0 [place] 00 Refill(s) sucralfate 0 Yes 1 gm = 1 [facility] 1 g oral 1-07 tab, PO, l tablet 16:15: QID-Before [place] 00 Meals, 0 Refill(s) promethazin 2015-0 Yes 25 mg = 1 M emoria e 25 mg 1-07 tab, PO, l oral tablet 16:15: PRN, 0 [place] 00 Refill(s) sucralfate 2015-0 Yes 1 gm = 1 [facility] 1 g oral 1-07 tab, PO, l tablet 16:15: QID-Before [place] 00 Meals, 0 Refill(s) promethazin 2015-0 Yes 25 [...] [place] 00 Meals, 0 Refill(s) promethazin 2015-0 Yes 25 mg = 1 M emoria e 25 mg 1-07 tab, PO, l oral tablet 16:15: PRN, 0 [facility] [place] 00 Refill(s) sucralfate 2015-0 Yes 1 gm = 1 [facility] 1 g oral 1-07 tab, PO, l tablet 16:15: QID-Before [place] nn Meals, 0 Refill(s) promethazin 2016-0 Yes 25 mg = 1 M emoria e 25 mg 1-07 tab, PO, l oral tablet 16:15: PRN, 0 [place] 00 Refill(s) sucralfate 2015-0 Yes 1 gm = 1 [facility] 1 g oral 1-07 tab, PO, l tablet 16:15: QID-Before [place] nn Meals, 0 Refill(s) promethazin 2016-0 Yes 25 [...] 16:15: QID-Before [place] 00 Meals, 0 Refill(s) promethazin 2016-0 Yes [...] QID-Before [place] nn Meals, 0 Refill(s) promethazin 2015-0 Yes 25 mg = 1 M emoria e 25 mg 1-07 tab, PO, l oral tablet 16:15: PRN, 0 [facility] [place] 00 Refill(s) sucralfate 2015-0 Yes 1 gm = 1 [facility] 1 g oral 1-07 tab, PO, l tablet 16:15: QID-Before [place] nn Meals, 0 Refill(s) promethazin 2015-0 Yes 25 [...] QID-Before [place] nn Meals, 0 Refill(s) promethazin 2016-0 Yes 25 [...] QID-Before [place] nn Meals, 0 Refill(s) promethazin 2015-0 Yes 25 mg = 1 M emoria e 25 mg 1-07 tab, PO, l oral tablet 16:15: PRN, 0 [place] 00 Refill(s) sucralfate 2015-0 Yes 1 gm = 1 [facility] 1 g oral 1-07 tab, PO, l tablet 16:15: QID-Before [place] nn Meals, 0 Refill(s) promethazin 2015-0 Yes 25 mg = 1 M emoria e 25 mg 1-07 tab, PO, l oral tablet 16:15: PRN, 0 [place] 00 Refill(s) sucralfate 2015-0 Yes 1 gm = 1 [facility] 1 g oral 1-07 tab, PO, l tablet 16:15: QID-Before [place] nn Meals, 0 Refill(s) promethazin 2015-0 Yes 25 mg = 1 M emoria e 25 mg 1-07 tab, PO, l oral tablet 16:15: PRN, 0 [place] 00 Refill(s) sucralfate 2015-0 Yes 1 gm = 1 [facility] 1 g oral 1-07 tab, PO, l tablet 16:15: QID-Before [place] nn Meals, 0 Refill(s) promethazin 2015-0 Yes 25 mg = 1 M emoria e 25 mg 1-07 tab, PO, l oral tablet 16:15: PRN, 0 [place] 00 Refill(s) sucralfate 2015-0 Yes 1 gm = 1 [facility] 1 g oral 1-07 tab, PO, l tablet 16:15: QID-Before [place] nn Meals, 0 Refill(s) promethazin 2016-0 Yes 25 [...] 16:15: QID-Before [place] 00 Meals, 0 Refill(s) promethazin 2016-0 Yes 25 mg = 1 M emoria e 25 mg 1-07 tab, PO, l oral tablet 16:15: PRN, 0 [facility] [place] 00 Refill(s) sucralfate 2016-0 Yes 1 gm = 1 [facility] 1 g oral 1-07 tab, PO, l tablet 16:15: QID-Before [place] nn Meals, 0 Refill(s) promethazin 2016-0 Yes 25 mg = 1 M emoria e 25 mg 1-07 tab, PO, l oral tablet 16:15: PRN, 0 [place] 00 Refill(s) sucralfate 2016-0 Yes 1 gm = 1 [facility] 1 g oral 1-07 tab, PO, l tablet 16:15: QID-Before [place] nn Meals, 0 Refill(s) promethazin 2016-0 Yes 25 mg = 1 M emoria e 25 mg 1-07 tab, PO, l oral tablet 16:15: PRN, 0 [facility] [place] 00 Refill(s) sucralfate 2016-0 Yes 1 gm = 1 [facility] 1 g oral 1-07 tab, PO, l tablet 16:15: QID-Before [place] Meals, 0 Refill(s) Colchicine 2016-0 Yes 0.6 mg = [...] tab, PO, l Tablet 16:14: PRN, 0 [place] [Colcrys] 00 Refill(s) Colchicine 2016-0 Yes 0.6 mg = 1 M emoria 0.6 MG Oral 1-07 tab, PO, l Tablet 16:14: PRN, 0 [place] [Colcrys] 00 Refill(s) Colchicine 2016-0 Yes 0.6 mg = 1 M emoria 0.6 MG Oral 1-07 tab, PO, l Tablet 16:14: PRN, 0 [place] [Colcrys] 00 Refill(s) Colchicine 2016-0 Yes 0.6 mg = 1 M emoria 0.6 MG Oral 1-07 tab, PO, l Tablet 16:14: PRN, 0 [place] [Colcrys] 00 Refill(s) Colchicine 2016-0 Yes 0.6 mg = 1 M emoria 0.6 MG Oral 1-07 tab, PO, l Tablet 16:14: PRN, 0 [place] [Colcrys] 00 Refill(s) Colchicine 2016-0 Yes 0.6 mg = 1 M emoria 0.6 MG Oral 1-07 tab, PO, l Tablet 16:14: PRN, 0 [place] [Colcrys] 00 Refill(s) Colchicine 2016-0 Yes 0.6 mg = 1 M emoria 0.6 MG Oral 1-07 tab, PO, l Tablet 16:14: PRN, 0 [place] [Colcrys] 00 Refill(s) Colchicine 2016-0 Yes 0.6 mg = 1 M emoria 0.6 MG Oral 1-07 tab, PO, l Tablet 16:14: PRN, 0 [place] [Colcrys] 00 Refill(s) Colchicine 2016-0 Yes 0.6 mg = 1 M emoria 0.6 MG Oral 1-07 tab, PO, l Tablet 16:14: PRN, 0 [place] [Colcrys] 00 Refill(s) Colchicine 2016-0 Yes 0.6 [...] tab, PO, l Tablet 16:14: PRN, 0 [place] [Colcrys] 00 Refill(s) Colchicine 2016-0 Yes 0.6 mg = 1 M emoria 0.6 MG Oral 1-07 tab, PO, l Tablet 16:14: PRN, 0 [place] [Colcrys] 00 Refill(s) Colchicine 2016-0 Yes 0.6 mg = 1 M emoria 0.6 MG Oral 1-07 tab, PO, l Tablet 16:14: PRN, 0 [place] [Colcrys] 00 Refill(s) Colchicine 2016-0 Yes 0.6 mg = 1 M emoria 0.6 MG Oral 1-07 tab, PO, l Tablet 16:14: PRN, 0 [place] [Colcrys] 00 Refill(s) Colchicine 2016-0 Yes 0.6 mg = 1 M emoria 0.6 MG Oral 1-07 tab, PO, l Tablet 16:14: PRN, 0 [place] [Colcrys] 00 Refill(s) Colchicine 2016-0 Yes 0.6 [...] tab, PO, l Tablet 16:14: PRN, 0 [place] [Colcrys] 00 Refill(s) Colchicine 2016-0 Yes 0.6 [...] tab, PO, l Tablet 16:14: PRN, 0 [place] [Colcrys] 00 Refill(s) Colchicine 2016-0 Yes 0.6 mg = 1 M emoria 0.6 MG Oral 1-07 tab, PO, l Tablet 16:14: PRN, 0 [place] [Colcrys] 00 Refill(s) Colchicine 2016-0 Yes 0.6 mg = 1 M emoria 0.6 MG Oral 1-07 tab, PO, l Tablet 16:14: PRN, 0 [place] [Colcrys] 00 Refill(s) Colchicine 2016-0 Yes 0.6 [...] tab, PO, l Tablet 16:14: PRN, 0 [place] [Colcrys] 00 Refill(s) Colchicine 2016-0 Yes 0.6 mg = 1 M emoria 0.6 MG Oral 1-07 tab, PO, l Tablet 16:14: PRN, 0 [place] [Colcrys] 00 Refill(s) Colchicine 2016-0 Yes 0.6 mg = 1 M emoria 0.6 MG Oral 1-07 tab, PO, l Tablet 16:14: PRN, 0 [place] [Colcrys] 00 Refill(s) Colchicine 2016-0 Yes 0.6 mg = 1 M emoria 0.6 MG Oral 1-07 tab, PO, l Tablet 16:14: PRN, 0 [place] [Colcrys] 00 Refill(s) Colchicine 2016-0 Yes 0.6 mg = 1 M emoria 0.6 MG Oral 1-07 tab, PO, l Tablet 16:14: PRN, 0 [place] [Colcrys] 00 Refill(s) Colchicine 2016-0 Yes 0.6 [...] tab, PO, l Tablet 16:14: PRN, 0 [place] [Colcrys] 00 Refill(s) Colchicine 2016-0 Yes 0.6 mg = 1 M emoria 0.6 MG Oral 1-07 tab, PO, l Tablet 16:14: PRN, 0 [place] [Colcrys] 00 Refill(s) Colchicine 2016-0 Yes 0.6 mg = 1 M emoria 0.6 MG Oral 1-07 tab, PO, l Tablet 16:14: PRN, 0 [place] [Colcrys] 00 Refill(s) Colchicine 2016-0 Yes 0.6 mg = 1 M emoria 0.6 MG Oral 1-07 tab, PO, l Tablet 16:14: PRN, 0 [place] [Colcrys] 00 Refill(s) Colchicine 2016-0 Yes 0.6 mg = 1 M emoria 0.6 MG Oral 1-07 tab, PO, l Tablet 16:14: PRN, 0 [place] [Colcrys] 00 Refill(s) Colchicine 2016-0 Yes 0.6 mg = 1 M emoria 0.6 MG Oral 1-07 tab, PO, l Tablet 16:14: PRN, 0 [place] [Colcrys] 00 Refill(s) Colchicine 2016-0 Yes 0.6 mg = 1 M emoria 0.6 MG Oral 1-07 tab, PO, l Tablet 16:14: PRN, 0 [place] [Colcrys] 00 Refill(s) Colchicine 2016-0 Yes 0.6 mg = 1 M emoria 0.6 MG Oral 1-07 tab, PO, l Tablet 16:14: PRN, 0 [place] [Colcrys] 00 Refill(s) Colchicine 2016-0 Yes 0.6 mg = 1 M emoria 0.6 MG Oral 1-07 tab, PO, l Tablet 16:14: PRN, 0 [place] [Colcrys] 00 Refill(s) Colchicine 2016-0 Yes 0.6 [...] tab, PO, l Tablet 16:14: PRN, 0 [place] [Colcrys] 00 Refill(s) Colchicine 2016-0 Yes 0.6 mg = 1 M emoria 0.6 MG Oral 1-07 tab, PO, l Tablet 16:14: PRN, 0 [place] [Colcrys] 00 Refill(s) Colchicine 2016-0 Yes 0.6 mg = 1 M emoria 0.6 MG Oral 1-07 tab, PO, l Tablet 16:14: PRN, 0 [place] [Colcrys] 00 Refill(s) Colchicine 2016-0 Yes 0.6 mg = 1 M emoria 0.6 MG Oral 1-07 tab, PO, l Tablet 16:14: PRN, 0 [place] [Colcrys] 00 Refill(s) Colchicine Yes 0.6 mg = 1 M emoria 0.6 MG Oral 1-07 tab, PO, l Tablet 16:14: PRN, 0 [place] [Colcrys] 00 Refill(s) allopurinol Yes 300 mg = 1 [facility] 300 mg oral 1-07 tab, PO, l tablet 16:13: Daily, 0 [place] 00 Refill(s) allopurinol Yes 300 mg = 1 [facility] 300 mg oral 1-07 tab, PO, l tablet 16:13: Daily, 0 [place] 00 Refill(s) allopurinol Yes 300 mg = 1 [facility] 300 mg oral 1-07 tab, PO, l tablet 16:13: Daily, 0 [place] 00 Refill(s) allopurinol Yes 300 mg = 1 [facility] 300 mg oral 1-07 tab, PO, l tablet 16:13: Daily, 0 [place] 00 Refill(s) allopurinol Yes 300 mg = 1 [facility] 300 mg oral 1-07 tab, PO, l tablet 16:13: Daily, 0 [place] 00 Refill(s) allopurinol Yes 300 mg = 1 [facility] 300 mg oral 1-07 tab, PO, l tablet 16:13: Daily, 0 [place] 00 Refill(s) allopurinol Yes 300 mg = 1 [facility] 300 mg oral 1-07 tab, PO, l tablet 16:13: Daily, 0 [place] 00 Refill(s) allopurinol Yes 300 mg = 1 [facility] 300 mg oral 1-07 tab, PO, l tablet 16:13: Daily, 0 [place] 00 Refill(s) allopurinol Yes 300 mg = 1 [facility] 300 mg oral 1-07 tab, PO, l tablet 16:13: Daily, 0 [place] 00 Refill(s) allopurinol Yes 300 mg = 1 [facility] 300 mg oral 1-07 tab, PO, l tablet 16:13: Daily, 0 [place] 00 Refill(s) allopurinol Yes 300 mg = 1 [facility] 300 mg oral 1-07 tab, PO, l tablet 16:13: Daily, 0 [place] 00 Refill(s) allopurinol Yes 300 mg = 1 [facility] 300 mg oral 1-07 tab, PO, l tablet 16:13: Daily, 0 [place] 00 Refill(s) allopurinol Yes 300 mg = 1 [facility] 300 mg oral 1-07 tab, PO, l tablet 16:13: Daily, 0 [place] 00 Refill(s) allopurinol Yes 300 mg = 1 [facility] 300 mg oral 1-07 tab, PO, l tablet 16:13: Daily, 0 [place] 00 Refill(s) allopurinol Yes 300 mg = 1 [facility] 300 mg oral 1-07 tab, PO, l tablet 16:13: Daily, 0 [place] 00 Refill(s) allopurinol Yes 300 mg = 1 [facility] 300 mg oral 1-07 tab, PO, l tablet 16:13: Daily, 0 [place] 00 Refill(s) allopurinol Yes 300 mg = 1 [facility] 300 mg oral 1-07 tab, PO, l tablet 16:13: Daily, 0 [place] 00 Refill(s) allopurinol Yes 300 mg = 1 [facility] 300 mg oral 1-07 tab, PO, l tablet 16:13: Daily, 0 [place] 00 Refill(s) allopurinol Yes 300 mg = 1 [facility] 300 mg oral 1-07 tab, PO, l tablet 16:13: Daily, 0 [place] 00 Refill(s) allopurinol Yes 300 mg = 1 [facility] 300 mg oral 1-07 tab, PO, l tablet 16:13: Daily, 0 [place] 00 Refill(s) allopurinol Yes 300 mg = 1 [facility] 300 mg oral 1-07 tab, PO, l tablet 16:13: Daily, 0 [place] 00 Refill(s) allopurinol Yes 300 mg = 1 [facility] 300 mg oral 1-07 tab, PO, l tablet 16:13: Daily, 0 [place] 00 Refill(s) allopurinol Yes 300 mg = 1 [facility] 300 mg oral 1-07 tab, PO, l tablet 16:13: Daily, 0 [place] 00 Refill(s) allopurinol Yes 300 mg = 1 [facility] 300 mg oral 1-07 tab, PO, l tablet 16:13: Daily, 0 [place] 00 Refill(s) allopurinol Yes 300 mg = 1 [facility] 300 mg oral 1-07 tab, PO, l tablet 16:13: Daily, 0 [place] 00 Refill(s) allopurinol Yes 300 mg = 1 [facility] 300 mg oral 1-07 tab, PO, l tablet 16:13: Daily, 0 [place] 00 Refill(s) allopurinol Yes 300 mg = 1 [facility] 300 mg oral 1-07 tab, PO, l tablet 16:13: Daily, 0 [place] 00 Refill(s) allopurinol Yes 300 mg = 1 [facility] 300 mg oral 1-07 tab, PO, l tablet 16:13: Daily, 0 [place] 00 Refill(s) allopurinol Yes 300 mg = [...] 16:13: Daily, 0 [place] 00 Refill(s) allopurinol 0 Yes 300 mg = 1 [facility] 300 mg oral 1-07 tab, PO, l tablet 16:13: Daily, 0 [place] 00 Refill(s) allopurinol 0 Yes 300 mg = 1 [facility] 300 mg oral 1-07 tab, PO, l tablet 16:13: Daily, 0 [place] 00 Refill(s) allopurinol Yes 300 mg = 1 [facility] 300 mg oral 1-07 tab, PO, l tablet 16:13: Daily, 0 [place] 00 Refill(s) allopurinol Yes 300 mg = [...] tab, PO, l tablet 16:13: Daily, 0 [place] 00 Refill(s) allopurinol Yes 300 mg = 1 [facility] 300 mg oral 1-07 tab, PO, l tablet 16:13: Daily, 0 [place] 00 Refill(s) allopurinol Yes 300 mg = 1 [facility] 300 mg oral 1-07 tab, PO, l tablet 16:13: Daily, 0 [place] 00 Refill(s) allopurinol Yes 300 mg = 1 [facility] 300 mg oral 1-07 tab, PO, l tablet 16:13: Daily, 0 [place] 00 Refill(s) allopurinol Yes 300 mg = 1 [facility] 300 mg oral 1-07 tab, PO, l tablet 16:13: Daily, 0 [place] 00 Refill(s) allopurinol Yes 300 mg = 1 [facility] 300 mg oral 1-07 tab, PO, l tablet 16:13: Daily, 0 [place] 00 Refill(s) allopurinol Yes 300 mg = 1 [facility] 300 mg oral 1-07 tab, PO, l tablet 16:13: Daily, 0 [place] 00 Refill(s) allopurinol Yes 300 mg = 1 [facility] 300 mg oral 1-07 tab, PO, l tablet 16:13: Daily, 0 [place] 00 Refill(s) allopurinol Yes 300 mg = 1 [facility] 300 mg oral 1-07 tab, PO, l tablet 16:13: Daily, 0 [place] 00 Refill(s) allopurinol 0 Yes 300 mg = 1 [facility] 300 mg oral 1-07 tab, PO, l tablet 16:13: Daily, 0 [place] 00 Refill(s) allopurinol Yes 300 mg = 1 [facility] 300 mg oral 1-07 tab, PO, l tablet 16:13: Daily, 0 [place] 00 Refill(s) allopurinol Yes 300 mg = [...] 16:13: Daily, 0 [place] 00 Refill(s) allopurinol 0 Yes 300 mg = 1 [facility] 300 mg oral 1-07 tab, PO, l tablet 16:13: Daily, 0 [place] 00 Refill(s) allopurinol Yes 300 mg = 1 [facility] 300 mg oral 1-07 tab, PO, l tablet 16:13: Daily, 0 [place] 00 Refill(s) Unknown Yes Refill(s) [facility] 1-07 0 l Medication 16:12: [place] Unknown 2015-0 Yes Refill(s) [facility] 1-07 0 l Medication 16:12: [place] Unknown 2015-0 Yes Refill(s) [facility] 1-07 0 l Medication 16:12: [place] Unknown 2015-0 Yes Refill(s) [facility] 1-07 0 l Medication 16:12: [place] Unknown 2015-0 Yes Refill(s) [facility] 1-07 0 l Medication 16:12: [place] 00 Unknown 2015-0 Yes Refill(s) [facility] 1-07 0 l Medication 16:12: Unknown 2015-0 Yes Refill(s) [facility] 1-07 0 l Medication 16:12: Unknown 2015-0 Yes Refill(s) [facility] 1-07 0 l Medication 16:12: Unknown 2015-0 Yes Refill(s) [facility] 1-07 0 l Medication 16:12: Unknown 2015-0 Yes Refill(s) [facility] 1-07 0 l Medication 16:12: Unknown 2015-0 Yes Refill(s) [facility] 1-07 0 l Medication 16:12: Unknown 2015-0 Yes Refill(s) [facility] 1-07 0 l Medication 16:12: Unknown 2015-0 Yes Refill(s) [facility] 1-07 0 l Medication 16:12: Unknown 2015-0 Yes Refill(s) [facility] 1-07 0 l Medication 16:12: Unknown 2015-0 Yes Refill(s) [facility] 1-07 0 l Medication 16:12: Unknown 2015-0 Yes Refill(s) [facility] 1-07 0 l Medication 16:12: Unknown 2015-0 Yes Refill(s) [facility] 1-07 0 l Medication 16:12: Unknown 2015-0 Yes Refill(s) [facility] 1-07 0 l Medication 16:12: Unknown 2015-0 Yes Refill(s) [facility] 1-07 0 l Medication 16:12: Unknown 2015-0 Yes Refill(s) [facility] 1-07 0 l Medication 16:12: Unknown 2015-0 Yes Refill(s) [facility] 1-07 0 l Medication 16:12: Unknown 2015-0 Yes Refill(s) [facility] 1-07 0 l Medication 16:12: Unknown 2015-0 Yes Refill(s) [facility] 1-07 0 l Medication 16:12: Unknown 2015-0 Yes Refill(s) [facility] 1-07 0 l Medication 16:12: Unknown 2016-0 Yes Refill(s) [facility] 1-07 0 l Medication 16:12: Unknown 2015-0 Yes Refill(s) [facility] 1-07 0 l Medication 16:12: Unknown 2016-0 Yes Refill(s) [facility] 1-07 0 l Medication 16:12: Unknown 2015-0 Yes Refill(s) [facility] 1-07 0 l Medication 16:12: Unknown 2015-0 Yes Refill(s) [facility] 1-07 0 l Medication 16:12: Unknown 2015-0 Yes Refill(s) [facility] 1-07 0 l Medication 16:12: Unknown 2015-0 Yes Refill(s) [facility] 1-07 0 l Medication 16:12: Unknown 2015-0 Yes Refill(s) [facility] 1-07 0 l Medication 16:12: Unknown 2015-0 Yes Refill(s) [facility] 1-07 0 l Medication 16:12: Unknown 2015-0 Yes Refill(s) [facility] 1-07 0 l Medication 16:12: Unknown 2015-0 Yes Refill(s) [facility] 1-07 0 l Medication 16:12: Unknown 2015-0 Yes Refill(s) [facility] 1-07 0 l Medication 16:12: Unknown 2015-0 Yes Refill(s) [facility] 1-07 0 l Medication 16:12: Unknown 2015-0 Yes Refill(s) [facility] 1-07 0 l Medication 16:12: Unknown 2015-0 Yes Refill(s) [facility] 1-07 0 l Medication 16:12: Unknown 2015-0 Yes Refill(s) [facility] 1-07 0 l Medication 16:12: Unknown 2015-0 Yes Refill(s) [facility] 1-07 0 l Medication 16:12: Unknown 2015-0 Yes Refill(s) [facility] 1-07 0 l Medication 16:12: Unknown 2015-0 Yes Refill(s) [facility] 1-07 0 l Medication 16:12: Unknown 2015-0 Yes Refill(s) [facility] 1-07 0 l Medication 16:12: Unknown 2015-0 Yes Refill(s) [facility] 1-07 0 l Medication 16:12: Unknown 2015-0 Yes Refill(s) [facility] 1-07 0 l Medication 16:12: Unknown 2015-0 Yes Refill(s) [facility] 1-07 0 l Medication 16:12: Unknown 2015-0 Yes Refill(s) [facility] 1-07 0 l Medication 16:12: Unknown 2015-0 Yes Refill(s) [facility] 1-07 0 l Medication 16:12: Unknown 2015-0 Yes Refill(s) [facility] 1-07 0 l Medication 16:12: Unknown 2015-0 Yes Refill(s) [facility] 1-07 0 l Medication 16:12: Unknown 2015-0 Yes Refill(s) [facility] 1-07 0 l Medication 16:12: Unknown 2015-0 Yes Refill(s) [facility] 1-07 0 l Medication 16:12: Unknown 2015-0 Yes Refill(s) [facility] 1-07 0 l Medication 16:12: Unknown 2015-0 Yes Refill(s) [facility] 1-07 0 l Medication 16:12: Unknown 2015-0 Yes Refill(s) [facility] 1-07 0 l Medication 16:12: Unknown 2015-0 Yes Refill(s) [facility] 1-07 0 l Medication 16:12: pantoprazol 2015-0 Yes 40 mg = 1 M emoria e 40 MG 1-07 tab, PO, l Enteric 16:11: Daily, 0 [place] Coated 00 Refill(s) Tablet [Protonix] pantoprazol Yes 40 mg = 1 M emoria e 40 MG 1-07 tab, PO, l Enteric 16:11: Daily, 0 [place] Coated 00 Refill(s) Tablet [Protonix] pantoprazol 2016 Yes 40 mg = 1 M em[facility] e 40 MG 1-07 tab, PO, l Enteric 16:11: Daily, 0 [place] Coated 00 Refill(s) Tablet [Protonix] pantoprazol 2016 Yes 40 mg = 1 M [...] n Coated 00 Refill(s) Tablet [Protonix] pantoprazol 2016 Yes 40 mg = 1 M [...] n Coated 00 Refill(s) Tablet [Protonix] pantoprazol 2016 Yes 40 mg = 1 M [...] n Coated 00 Refill(s) Tablet [Protonix] pantoprazol 2016- Yes 40 mg = 1 M em[facility] e 40 MG 1-07 tab, PO, l Enteric 16:11: Daily, 0 [place] Coated 00 Refill(s) Tablet [Protonix] pantoprazol 2016-0 Yes 40 mg = 1 M [...] n Coated 00 Refill(s) Tablet [Protonix] pantoprazol 2016- Yes 40 mg = 1 M em[facility] e 40 MG 1-07 tab, PO, l Enteric 16:11: Daily, 0 [place] Co[place] 00 Refill(s) Tablet [Protonix] pantoprazol 2016-0 Yes 40 mg = 1 M em[facility] e 40 MG 1-07 tab, PO, l Enteric 16:11: Daily, 0 [place] Coated 00 Refill(s) Tablet [Protonix] pantoprazol 2016-0 Yes 40 mg = 1 M em[facility] e 40 MG 1-07 tab, PO, l Enteric 16:11: Daily, 0 [place] Coated 00 Refill(s) Tablet [Protonix] pantoprazol 2016-0 Yes 40 mg = 1 M em[facility] e 40 MG 1-07 tab, PO, l Enteric 16:11: Daily, 0 [place] Co[place] 00 Refill(s) Tablet [Protonix] pantoprazol 2016-0 Yes 40 mg = 1 M [...] l de 50 MG 16:10: TID, 0 [place] Oral Tablet 00 Refill(s) Hydralazine Yes 50 mg = 1 M em[facility] Hydrochlori -07 tab, PO, l de 50 MG 16:10: TID, 0 [place] Oral Tablet 00 Refill(s) Hydralazine Yes 50 mg = 1 M [facility] Hydrochlori -07 tab, PO, l de 50 MG 16:10: TID, 0 [place] Oral Tablet 00 Refill(s) Hydralazine Yes 50 mg = 1 M [facility] Hydrochlori -07 tab, PO, l de 50 MG 16:10: TID, 0 [place] Oral Tablet 00 Refill(s) Hydralazine Yes 50 mg = 1 M [facility] Hydrochlori 1-07 tab, PO, l de 50 MG 16:10: TID, 0 [place] Oral Tablet 00 Refill(s) Hydralazine Yes 50 mg = 1 M [facility] Hydrochlori 1-07 tab, PO, l de 50 MG 16:10: TID, 0 [place] Oral Tablet 00 Refill(s) Hydralazine Yes 50 mg = 1 M [facility] Hydrochlori 1-07 tab, PO, l de 50 MG 16:10: TID, 0 [place] Oral Tablet 00 Refill(s) Hydralazine 0 Yes 50 mg = 1 M [facility] Hydrochlori 1-07 tab, PO, l de 50 MG 16:10: TID, 0 [place] Oral Tablet 00 Refill(s) Hydralazine 0 Yes 50 mg = 1 M [facility] Hydrochlori -07 tab, PO, l de 50 MG 16:10: TID, 0 [place] Oral Tablet 00 Refill(s) Hydralazine 0 Yes [...] l de 50 MG 16:10: TID, 0 [place] Oral Tablet 00 Refill(s) Hydralazine 0 Yes 50 mg = 1 M [facility] Hydrochlori -07 tab, PO, l de 50 MG 16:10: TID, 0 [place] Oral Tablet 00 Refill(s) Hydralazine 0 Yes [...] l de 50 MG 16:10: TID, 0 [place] Oral Tablet 00 Refill(s) Hydralazine 0 Yes [...] l de 50 MG 16:10: TID, 0 [place] Oral Tablet 00 Refill(s) Hydralazine 20160 Yes 50 mg = 1 M [facility] Hydrochlori -07 tab, PO, l de 50 MG 16:10: TID, 0 [place] Oral Tablet 00 Refill(s) Hydralazine 2016-0 Yes 50 mg = 1 M [facility] Hydrochlori 07 tab, PO, l de 50 MG 16:10: TID, 0 [place] Oral Tablet 00 Refill(s) Hydralazine [id number] Yes 50 mg = 1 M [facility] Hydrochlori 07 tab, PO, l de 50 MG 16:10: TID, 0 [place] Oral Tablet 00 Refill(s) Hydralazine 0 Yes 50 mg = 1 M [facility] Hydrochlori 07 tab, PO, l de 50 MG 16:10: TID, 0 [place] Oral Tablet 00 Refill(s) Hydralazine 20160 Yes 50 mg = 1 M [facility] Hydrochlori 11-07 tab, PO, l de 50 MG 16:10: TID, 0 [place] Oral Tablet 00 Refill(s) Hydralazine 0 Yes 50 mg = 1 M [facility] Hydrochlori 07 tab, PO, l de 50 MG 16:10: TID, 0 [place] Oral Tablet 00 Refill(s) Hydralazine [id number] Yes 50 mg = 1 M [facility] Hydrochlori 07 tab, PO, l de 50 MG 16:10: TID, 0 [place] Oral Tablet 00 Refill(s) Hydralazine 2016-0 Yes 50 mg = 1 [facility] Hydrochlori 07 tab, PO, l de 50 MG 16:10: TID, 0 [place] Oral Tablet 00 Refill(s) Hydralazine 2016-0 Yes 50 mg = 1 M [facility] Hydrochlori -07 tab, PO, l de 50 MG 16:10: TID, 0 [place] Oral Tablet 00 Refill(s) Hydralazine 2016-0 Yes 50 mg = 1 M [facility] Hydrochlori -07 tab, PO, l de 50 MG 16:10: TID, 0 [place] Oral Tablet 00 Refill(s) Hydralazine 2016-0 Yes 50 mg = 1 M [facility] Hydrochlori -07 tab, PO, l de 50 MG 16:10: TID, 0 [place] Oral Tablet 00 Refill(s) Hydralazine 2016-0 Yes 50 mg = 1 M [facility] Hydrochlori -07 tab, PO, l de 50 MG 16:10: TID, 0 [place] Oral Tablet 00 Refill(s) Hydralazine 2016-0 Yes 50 mg = 1 M [facility] Hydrochlori 07 tab, PO, l de 50 MG 16:10: TID, 0 [place] Oral Tablet 00 Refill(s) Hydralazine 2015-0 Yes 50 mg = 1 M [facility] Hydrochlori 07 tab, PO, l de 50 MG 16:10: TID, 0 [place] Oral Tablet 00 Refill(s) Hydralazine 2015-0 Yes 50 mg = 1 M [facility] Hydrochlori 07 tab, PO, l de 50 MG 16:10: TID, 0 [place] Oral Tablet 00 Refill(s) Hydralazine 2015-0 Yes 50 mg = 1 M [facility] Hydrochlori 11-07 tab, PO, l de 50 MG 16:10: TID, 0 [place] Oral Tablet 00 Refill(s) Hydralazine 2015-0 Yes 50 mg = 1 M [facility] Hydrochlori 07 tab, PO, l de 50 MG 16:10: TID, 0 [place] Oral Tablet 00 Refill(s) Hydralazine 2016-0 Yes 50 mg = 1 M [facility] Hydrochlori 07 tab, PO, l de 50 MG 16:10: TID, 0 [place] Oral Tablet 00 Refill(s) Hydralazine 2016-0 Yes 50 mg = 1 M [facility] Hydrochlori 07 tab, PO, l de 50 MG 16:10: TID, 0 [place] Oral Tablet 00 Refill(s) Hydralazine 2016-0 Yes 50 mg = 1 M [facility] Hydrochlori -07 tab, PO, l de 50 MG 16:10: TID, 0 [place] Oral Tablet 00 Refill(s) Hydralazine 2016-0 Yes 50 mg = 1 M [place] Hydrochlori -07 tab, PO, l de 50 MG 16:10: TID, 0 [place] Oral Tablet 00 Refill(s) Hydralazine 0 Yes 50 mg = 1 M [facility] Hydrochlori 1-07 tab, PO, l de 50 MG 16:10: TID, 0 [place] Oral Tablet 00 Refill(s) Hydralazine 2015-0 Yes 50 mg = 1 M [facility] Hydrochlori 1-07 tab, PO, l de 50 MG 16:10: TID, 0 [place] Oral Tablet 00 Refill(s) Hydralazine 2015-0 Yes 50 mg = 1 M [place] Hydrochlori -07 tab, PO, l de 50 MG 16:10: TID, 0 [place] Oral Tablet 00 Refill(s) Hydralazine 0 Yes [...] l de 50 MG 16:10: TID, 0 [place] Oral Tablet 00 Refill(s) Hydralazine 0 Yes 50 mg = 1 M [facility] Hydrochlori -07 tab, PO, l de 50 MG 16:10: TID, 0 [place] Oral Tablet 00 Refill(s) lisinopril 0 Yes 10 mg = 1 Me [facility] 10 mg oral -07 tab, PO, l tablet 16:09: BID, 0 [place] 00 Refill(s) lisinopril 2015-0 Yes 10 mg = 1 [place] 10 mg oral -07 tab, PO, l tablet 16:09: BID, 0 [place] 00 Refill(s) lisinopril 2015-0 Yes 10 mg = 1 [place] 10 mg oral -07 tab, PO, l tablet 16:09: BID, 0 [place] 00 Refill(s) lisinopril 2016- Yes 10 mg = 1 Me [facility] 10 mg oral 1-07 tab, PO, l tablet 16:09: BID, 0 [place] 00 Refill(s) lisinopril 2016-0 Yes 10 mg = 1 [facility] 10 mg oral 1-07 tab, PO, l tablet 16:09: BID, 0 [place] 00 Refill(s) lisinopril 2016-0 Yes 10 mg [...] tab, PO, l tablet 16:09: BID, 0 [place] 00 Refill(s) lisinopril 2015-0 Yes 10 mg [...] tab, PO, l tablet 16:09: BID, 0 [place] 00 Refill(s) lisinopril 2016-0 Yes 10 mg = 1 [place] 10 mg oral 1-07 tab, PO, l tablet 16:09: BID, 0 [place] 00 Refill(s) lisinopril 2016-0 Yes 10 mg = 1 [place] 10 mg oral 1-07 tab, PO, l tablet 16:09: BID, 0 [place] 00 Refill(s) lisinopril 2015-0 Yes 10 mg = 1 [facility] [place] 10 mg oral 1-07 tab, PO, l tablet 16:09: BID, 0 [place] 00 Refill(s) lisinopril 2016-0 Yes 10 mg = 1 [place] 10 mg oral 1-07 tab, PO, l tablet 16:09: BID, 0 [place] 00 Refill(s) lisinopril 2016-0 Yes 10 mg = 1 [place] 10 mg oral 1-07 tab, PO, l tablet 16:09: BID, 0 [place] 00 Refill(s) lisinopril 2016-0 Yes 10 mg = 1 [place] 10 mg oral 1-07 tab, PO, l tablet 16:09: BID, 0 [place] 00 Refill(s) lisinopril 2016-0 Yes 10 mg = 1 [facility] [place] 10 mg oral 1-07 tab, PO, l tablet 16:09: BID, 0 [place] 00 Refill(s) lisinopril 2016-0 Yes 10 mg = 1 [place] 10 mg oral 1-07 tab, PO, l tablet 16:09: BID, 0 [place] 00 Refill(s) lisinopril 2016-0 Yes 10 mg = 1 [facility] [place] 10 mg oral 1-07 tab, PO, l tablet 16:09: BID, 0 [place] 00 Refill(s) lisinopril 2016-0 Yes 10 mg = 1 [place] 10 mg oral 1-07 tab, PO, l tablet 16:09: BID, 0 [place] 00 Refill(s) lisinopril 2016-0 Yes 10 mg = 1 [facility] [place] 10 mg oral 1-07 tab, PO, l tablet 16:09: BID, 0 [place] 00 Refill(s) lisinopril 2016-0 Yes 10 mg [...] 16:09: BID, 0 [place] 00 Refill(s) lisinopril 2016- Yes 10 mg = 1 [facility] [place] 10 mg oral 1-07 tab, PO, l tablet 16:09: BID, 0 [place] 00 Refill(s) lisinopril 2016-0 Yes 10 mg = 1 [facility] [place] 10 mg oral 1-07 tab, PO, l tablet 16:09: BID, 0 [place] 00 Refill(s) lisinopril 2016-0 Yes 10 mg = 1 [place] 10 mg oral 1-07 tab, PO, l tablet 16:09: BID, 0 [place] 00 Refill(s) lisinopril 2015-0 Yes 10 mg = 1 [facility] [place] 10 mg oral 1-07 tab, PO, l tablet 16:09: BID, 0 [place] 00 Refill(s) lisinopril 2015-0 Yes 10 mg = 1 [facility] [place] 10 mg oral 1-07 tab, PO, l tablet 16:09: BID, 0 [place] 00 Refill(s) lisinopril 0 Yes 10 mg = 1 [facility] 10 mg oral 1-07 tab, PO, l tablet 16:09: BID, 0 [place] 00 Refill(s) lisinopril 0 Yes 10 mg = 1 [facility] 10 mg oral 1-07 tab, PO, l tablet 16:09: BID, 0 [place] 00 Refill(s) lisinopril 2015-0 Yes 10 mg = 1 [facility] [place] 10 mg oral 1-07 tab, PO, l tablet 16:09: BID, 0 [place] 00 Refill(s) lisinopril 2016-0 Yes 10 mg [...] tab, PO, l tablet 16:09: BID, 0 [place] 00 Refill(s) lisinopril 2016-0 Yes 10 mg = 1 [place] 10 mg oral 1-07 tab, PO, l tablet 16:09: BID, 0 [place] 00 Refill(s) lisinopril 2016-0 Yes 10 mg = 1 [place] 10 mg oral 1-07 tab, PO, l tablet 16:09: BID, 0 [place] 00 Refill(s) lisinopril 2016-0 Yes 10 mg = 1 [facility] [place] 10 mg oral 1-07 tab, PO, l tablet 16:09: BID, 0 [place] 00 Refill(s) lisinopril 2016-0 Yes 10 mg = 1 [facility] [place] 10 mg oral 1-07 tab, PO, l tablet 16:09: BID, 0 [place] 00 Refill(s) lisinopril 2016-0 Yes 10 mg = 1 [facility] [place] 10 mg oral 1-07 tab, PO, l tablet 16:09: BID, 0 [place] 00 Refill(s) lisinopril 2016-0 Yes 10 mg [...] tab, PO, l tablet 16:09: BID, 0 [place] 00 Refill(s) lisinopril 2016-0 Yes 10 mg = 1 [place] 10 mg oral 1-07 tab, PO, l tablet 16:09: BID, 0 [place] 00 Refill(s) lisinopril 2016-0 Yes 10 mg = 1 [facility] [place] 10 mg oral 1-07 tab, PO, l tablet 16:09: BID, 0 [place] 00 Refill(s) lisinopril 2016-0 Yes 10 mg = 1 [facility] [place] 10 mg oral 1-07 tab, PO, l tablet 16:09: BID, 0 [place] 00 Refill(s) lisinopril 2016-0 Yes 10 mg = 1 [facility] [place] 10 mg oral 1-07 tab, PO, l tablet 16:09: BID, 0 [place] 00 Refill(s) lisinopril 2016-0 Yes 10 mg = 1 [facility] [place] 10 mg oral 1-07 tab, PO, l tablet 16:09: BID, 0 [place] 00 Refill(s) lisinopril 2016-0 Yes 10 mg = 1 [facility] [place] 10 mg oral 1-07 tab, PO, l tablet 16:09: BID, 0 [place] 00 Refill(s) lisinopril 2016-0 Yes 10 mg = 1 [facility] [place] 10 mg oral 1-07 tab, PO, l tablet 16:09: BID, 0 [place] 00 Refill(s) lisinopril 2016-0 Yes 10 mg = 1 [facility] [place] 10 mg oral 1-07 tab, PO, l tablet 16:09: BID, 0 [place] 00 Refill(s) Amlodipine 2016-0 Yes 10 mg [...] tab, PO, l Tablet 16:08: Daily, 0 [place] [Norvasc] 00 Refill(s) Hydrochloro 2016-0 Yes 25 mg, PO, Memoria thiazide 1-07 Daily, 0 l 16:08: Refill(s) [place] 00 Amlodipine 2016-0 Yes 10 mg = 1 [facility] 10 MG Oral - tab, PO, l Tablet 16:08: Daily, 0 [place] [Norvasc] 00 Refill(s) Hydrochloro 2016-0 Yes 25 mg, PO, Memoria thiazide 11-07 Daily, 0 l 16:08: Refill(s) Amlodipine 2015-0 Yes 10 mg = 1 [place] 10 MG Oral - tab, PO, l Tablet 16:08: Daily, 0 [place] [Norvasc] 00 Refill(s) Hydrochloro 2016-0 Yes 25 mg, PO, Memoria thiazide 11-07 Daily, 0 l 16:08: Refill(s) Amlodipine 2015-0 Yes 10 mg = 1 [place] 10 MG Oral 11-07 tab, PO, l Tablet 16:08: Daily, 0 [place] [Norvasc] 00 Refill(s) Hydrochloro 2016-0 Yes 25 mg, PO, Memoria thiazide 11-07 Daily, 0 l 16:08: Refill(s) Amlodipine 2015-0 Yes 10 mg = 1 [place] 10 MG Oral - tab, PO, l Tablet 16:08: Daily, 0 [place] [Norvasc] 00 Refill(s) Hydrochloro 2016-0 Yes 25 mg, PO, Memoria thiazide 11-07 Daily, 0 l 16:08: Refill(s) Amlodipine 2016-0 Yes 10 mg = 1 [place] 10 MG Oral - tab, PO, l Tablet 16:08: Daily, 0 [place] [Norvasc] 00 Refill(s) Hydrochloro 2016-0 Yes 25 mg, PO, Memoria thiazide 07 Daily, 0 l 16:08: Refill(s) Amlodipine 2016-0 Yes 10 mg = 1 [facility] [place] 10 MG Oral -07 tab, PO, l Tablet 16:08: Daily, 0 [place] [Norvasc] 00 Refill(s) Hydrochloro 2016-0 Yes 25 mg, PO, Memoria thiazide 1-07 Daily, 0 l 16:08: Refill(s) Amlodipine 2016-0 [...] tab, PO, l Tablet 16:08: Daily, 0 [place] [Norvasc] 00 Refill(s) Hydrochloro 2016-0 Yes 25 mg, PO, Memoria thiazide 11-07 Daily, 0 l 16:08: Refill(s) [place] 00 Amlodipine 2015-0 Yes 10 mg = 1 [facility] 10 MG Oral 1-07 tab, PO, l Tablet 16:08: Daily, 0 [place] [Norvasc] 00 Refill(s) Hydrochloro 2016-0 Yes 25 mg, PO, Memoria thiazide 11-07 Daily, 0 l 16:08: Refill(s) Amlodipine 2016-0 Yes 10 mg = 1 [place] 10 MG Oral 1-07 tab, PO, l Tablet 16:08: Daily, 0 [place] [Norvasc] 00 Refill(s) Hydrochloro 2016-0 Yes 25 [...] thiazide 07 Daily, 0 l 16:08: Refill(s) [place] 00 Amlodipine 2016-0 Yes 10 mg = 1 [facility] [place] 10 MG Oral 1-07 tab, PO, l Tablet 16:08: Daily, 0 [place] [Norvasc] 00 Refill(s) Hydrochloro 2016-0 Yes 25 mg, PO, Memoria thiazide 1-07 Daily, 0 l 16:08: Refill(s) Amlodipine 2016-0 [...] tab, PO, l Tablet 16:08: Daily, 0 [place] [Norvasc] 00 Refill(s) Hydrochloro 2016-0 Yes 25 mg, PO, Memoria thiazide 07 Daily, 0 l 16:08: Refill(s) Amlodipine 2016-0 Yes 10 mg = 1 [place] 10 MG Oral 1-07 tab, PO, l Tablet 16:08: Daily, 0 [place] [Norvasc] 00 Refill(s) Hydrochloro 2016-0 Yes 25 mg, PO, Memoria thiazide 1-07 Daily, 0 l 16:08: Refill(s) Amlodipine 2016-0 [...] tab, PO, l Tablet 16:08: Daily, 0 [place] [Norvasc] 00 Refill(s) Hydrochloro 2016-0 Yes 25 mg, PO, Memoria thiazide 11-07 Daily, 0 l 16:08: Refill(s) [place] 00 Amlodipine 2015-0 Yes 10 mg = 1 [place] 10 MG Oral - tab, PO, l Tablet 16:08: Daily, 0 [place] [Norvasc] 00 Refill(s) Hydrochloro 2016-0 Yes 25 mg, PO, Memoria thiazide 11-07 Daily, 0 l 16:08: Refill(s) [place] 00 Amlodipine 2015-0 Yes 10 mg = 1 [facility] [place] 10 MG Oral -07 tab, PO, l Tablet 16:08: Daily, 0 [place] [Norvasc] 00 Refill(s) Hydrochloro 2016-0 Yes 25 mg, PO, Memoria thiazide 11-07 Daily, 0 l 16:08: Refill(s) [place] 00 Amlodipine 2016-0 Yes 10 mg = 1 [place] 10 MG Oral -07 tab, PO, l Tablet 16:08: Daily, 0 [place] [Norvasc] 00 Refill(s) Hydrochloro 2016-0 Yes 25 mg, PO, Memoria thiazide -07 Daily, 0 l 16:08: Refill(s) Amlodipine 2016-0 Yes 10 mg = 1 [place] 10 MG Oral -07 tab, PO, l Tablet 16:08: Daily, 0 [place] [Norvasc] 00 Refill(s) Hydrochloro 2016-0 Yes 25 mg, PO, Memoria thiazide 1-07 Daily, 0 l 16:08: Refill(s) Amlodipine 2016-0 Yes 10 mg = 1 [place] 10 MG Oral 1-07 tab, PO, l Tablet 16:08: Daily, 0 [place] [Norvasc] 00 Refill(s) Hydrochloro 2016-0 Yes 25 mg, PO, Memoria thiazide 11-07 Daily, 0 l 16:08: Refill(s) [place] 00 Amlodipine 2016-0 Yes 10 mg = 1 [facility] [place] 10 MG Oral 1-07 tab, PO, l Tablet 16:08: Daily, 0 [place] [Norvasc] 00 Refill(s) Hydrochloro 2016-0 Yes 25 mg, PO, Memoria thiazide 11-07 Daily, 0 l 16:08: Refill(s) [place] 00 Amlodipine 2015-0 Yes 10 mg = 1 [facility] [place] 10 MG Oral -07 tab, PO, l Tablet 16:08: Daily, 0 [place] [Norvasc] 00 Refill(s) Hydrochloro 2016-0 Yes 25 mg, PO, Memoria thiazide 11-07 Daily, 0 l 16:08: Refill(s) Amlodipine 2015-0 Yes 10 mg = 1 [place] 10 MG Oral -07 tab, PO, l Tablet 16:08: Daily, 0 [place] [Norvasc] 00 Refill(s) Hydrochloro 2016-0 Yes 25 mg, PO, Memoria thiazide 11-07 Daily, 0 l 16:08: Refill(s) [place] 00 Amlodipine 2016-0 Yes 10 mg = 1 [facility] 10 MG Oral 1-07 tab, PO, l Tablet 16:08: Daily, 0 [place] [Norvasc] 00 Refill(s) Hydrochloro 2016-0 Yes 25 mg, PO, Memoria thiazide 11-07 Daily, 0 l 16:08: Refill(s) [place] 00 Amlodipine 2016-0 Yes 10 mg = 1 [place] 10 MG Oral 1-07 tab, PO, l Tablet 16:08: Daily, 0 [place] [Norvasc] 00 Refill(s) Hydrochloro 2016-0 Yes 25 mg, PO, Memoria thiazide 11-07 Daily, 0 l 16:08: Refill(s) [place] 00 Amlodipine 2016-0 Yes 10 mg = 1 [facility] 10 MG Oral 1-07 tab, PO, l Tablet 16:08: Daily, 0 [place] [Norvasc] 00 Refill(s) Hydrochloro 2016-0 Yes 25 mg, PO, Memoria thiazide 1-07 Daily, 0 l 16:08: Refill(s) Amlodipine 2016-0 Yes 10 mg = 1 [place] 10 MG Oral -07 tab, PO, l Tablet 16:08: Daily, 0 [place] [Norvasc] 00 Refill(s) Hydrochloro 2016-0 Yes 25 mg, PO, Memoria thiazide 11-07 Daily, 0 l 16:08: Refill(s) Amlodipine 2016-0 Yes 10 mg = 1 [place] 10 MG Oral -07 tab, PO, l Tablet 16:08: Daily, 0 [place] [Norvasc] 00 Refill(s) Hydrochloro 2016-0 Yes 25 [...] tab, PO, l Tablet 16:08: Daily, 0 [place] [Norvasc] 00 Refill(s) Hydrochloro 2016-0 Yes 25 mg, PO, Memoria thiazide -07 Daily, 0 l 16:08: Refill(s) Amlodipine 2016-0 Yes 10 mg = 1 [place] 10 MG Oral 1-07 tab, PO, l Tablet 16:08: Daily, 0 [place] [Norvasc] 00 Refill(s) Hydrochloro 2016-0 Yes 25 mg, PO, Memoria thiazide 1-07 Daily, 0 l 16:08: Refill(s) Amlodipine 2016-0 Yes 10 mg = 1 [place] 10 MG Oral -07 tab, PO, l Tablet 16:08: Daily, 0 [place] [Norvasc] 00 Refill(s) Hydrochloro 2016-0 Yes 25 mg, PO, Memoria thiazide 11-07 Daily, 0 l 16:08: Refill(s) Amlodipine 2015-0 Yes 10 mg = 1 [place] 10 MG Oral - tab, PO, l Tablet 16:08: Daily, 0 [place] [Norvasc] 00 Refill(s) Hydrochloro 2016-0 Yes 25 mg, PO, Memoria thiazide 11-07 Daily, 0 l 16:08: Refill(s) Amlodipine 2015-0 Yes 10 mg = 1 [place] 10 MG Oral - tab, PO, l Tablet 16:08: Daily, 0 [place] [Norvasc] 00 Refill(s) Hydrochloro 2016-0 Yes 25 mg, PO, Memoria thiazide 11-07 Daily, 0 l 16:08: Refill(s) Amlodipine 2015-0 Yes 10 mg = 1 [place] 10 MG Oral - tab, PO, l Tablet 16:08: Daily, 0 [place] [Norvasc] 00 Refill(s) Hydrochloro 2016-0 Yes 25 mg, PO, Memoria thiazide 11-07 Daily, 0 l 16:08: Refill(s) Amlodipine 2016-0 Yes 10 mg = 1 [place] 10 MG Oral -07 tab, PO, l Tablet 16:08: Daily, 0 [place] [Norvasc] 00 Refill(s) Hydrochloro 2016-0 Yes 25 mg, PO, Memoria thiazide -07 Daily, 0 l 16:08: Refill(s) Amlodipine 2016-0 Yes 10 mg = 1 [place] 10 MG Oral -07 tab, PO, l Tablet 16:08: Daily, 0 [place] [Norvasc] 00 Refill(s) Hydrochloro 2016-0 Yes 25 mg, PO, Memoria thiazide -07 Daily, 0 l 16:08: Refill(s) Amlodipine 2015-0 Yes 10 mg = 1 [place] 10 MG Oral 1-07 tab, PO, l Tablet 16:08: Daily, 0 [place] [Norvasc] 00 Refill(s) Hydrochloro 2016-0 Yes 25 mg, PO, Memoria thiazide 11-07 Daily, 0 l 16:08: Refill(s) [place] 00 Amlodipine 0 Yes 10 mg = 1 [facility] 10 MG Oral -07 tab, PO, l Tablet 16:08: Daily, 0 [place] [Norvasc] 00 Refill(s) Hydrochloro 2016-0 Yes 25 mg, PO, Memoria thiazide 11-07 Daily, 0 l 16:08: Refill(s) [place] 00 Amlodipine 0 Yes 10 mg = 1 [facility] 10 MG Oral -07 tab, PO, l Tablet 16:08: Daily, 0 [place] [Norvasc] 00 Refill(s) Hydrochloro 2016-0 Yes 25 mg, PO, Memoria thiazide 11-07 Daily, 0 l 16:08: Refill(s) Amlodipine 0 Yes 10 mg = 1 [place] 10 MG Oral -07 tab, PO, l Tablet 16:08: Daily, 0 [place] [Norvasc] 00 Refill(s) Hydrochloro 2016-0 Yes 25 mg, PO, Memoria thiazide 11-07 Daily, 0 l 16:08: Refill(s) [place] 00 Amlodipine 2015-0 Yes 10 mg = 1 [facility] [place] 10 MG Oral -07 tab, PO, l Tablet 16:08: Daily, 0 [place] [Norvasc] 00 Refill(s) Hydrochloro 2016-0 Yes 25 mg, PO, Memoria thiazide 11-07 Daily, 0 l 16:08: Refill(s) [place] 00 Amlodipine 2016-0 Yes 10 mg = 1 [facility] [place] 10 MG Oral 1-07 tab, PO, l Tablet 16:08: Daily, 0 [place] [Norvasc] 00 Refill(s) Hydrochloro 2016-0 Yes 25 mg, PO, Memoria thiazide 07 Daily, 0 l 16:08: Refill(s) [place] 00 Amlodipine 2016-0 Yes 10 mg = 1 [place] 10 MG Oral 1-07 tab, PO, l Tablet 16:08: Daily, 0 [place] [Norvasc] 00 Refill(s) Hydrochloro 2016-0 Yes 25 mg, PO, Memoria thiazide 107 Daily, 0 l 16:08: Refill(s) [place] 00 Amlodipine 0 Yes 10 mg = 1 [place] 10 MG Oral 1-07 tab, PO, l Tablet 16:08: Daily, 0 [place] [Norvasc] 00 Refill(s) Hydrochloro 2016-0 Yes 25 mg, PO, Memoria thiazide 07 Daily, 0 l 16:08: Refill(s) [place] 00 Amlodipine 0 Yes 10 mg = 1 [place] 10 MG Oral 1-07 tab, PO, l Tablet 16:08: Daily, 0 [place] [Norvasc] 00 Refill(s) Hydrochloro 2015-0 Yes 25 mg, PO, Memoria thiazide 11-07 Daily, 0 l 16:08: Refill(s) [place] 00 Amlodipine Yes 10 mg = 1 [place] 10 MG Oral -07 tab, PO, l Tablet 16:08: Daily, 0 [place] [Norvasc] 00 Refill(s) Hydrochloro 0 Yes 25 [...] 0 [facility] tablet 00 Refill(s) metoprolol 2016-0 Yes 100 mg = 1 M emoria [...] 100 mg = 1 M emoria tartrate 07 tab, PO, l 100 mg oral 16:07: BID, 0 [facility] [place] tablet 00 Refill(s) albuterol albuterol No albuterol [facility] sulfate 2.5 sulfate 2.5 sulfate Family mg/3 mL mg/3 mL 2.5 mg/3 Pract ic (0.083 %) (0.083 %) mL (0.083 e solution solution %) for for solution nebulizatio nebulizatio for n n nebulizati on albuterol albuterol No albuterol [facility] sulfate HFA sulfate HFA sulfate Family [...] SHORTNESS OF BREATH allopurinol allopurinol No allopurino [facility] 300 mg 300 mg l 300 [...] ANXIETY amlodipine amlodipine No amlodipine [facility] 5 mg tablet 5 mg tablet 5 mg F amily TAKE 1 TAKE 1 tablet [facility] TABLET BY TABLET BY TAKE 1 e MOUTH EVERY MOUTH EVERY TABLET BY DAY DAY MOUTH EVERY DAY atorvastati atorvastati No atorvastat [facility] n 20 mg n 20 mg in 20 mg Famil y tablet TAKE tablet TAKE tablet Practic 1 TABLET BY 1 TABLET BY TAKE 1 e MOUTH EVERY MOUTH EVERY TABLET BY DAY DAY MOUTH EVERY DAY BD Insulin BD Insulin No BD Insulin [facility] Syringe Syringe Syringe Family U-500 1/2 U-500 1/2 U-500 1/2 Practic mL 31 gauge mL 31 gauge mL 31 e x 15/64" x 15/64" gauge x USE 1 USE 1 1564" USE SYRINGE SYRINGE 1 SYRINGE TWICE DAILY TWICE DAILY TWICE WITH MEALS. WITH MEALS. DAILY WITH MEALS. BD [place] 2nd BD [place] 2nd No BD [place] Gen Pen Gen Pen 2nd Gen Family Needle 32 Needle 32 Pen Needle Practic gauge x gauge x 32 gauge x e 5/32" USE 532" USE 5/32" USE TWICE DAILY TWICE DAILY TWICE DAILY clonidine clonidine No clonidine [facility] HCl 0.2 mg HCl 0.2 mg [...] MEALS dicyclomine dicyclomine No dicyclomin [facility] 10 mg 10 mg e 10 mg Family capsule capsule capsule Practi c TAKE 1 TAKE 1 TAKE 1 e CAPSULE BY CAPSULE BY CAPSULE BY MOUTH EVERY MOUTH EVERY MOUTH 8 HOURS 8 HOURS EVERY 8 HOURS gabapentin gabapentin No gabapentin [facility] 600 mg 600 mg 600 mg [...] EVENING hydralazine hydralazine No hydralazin [facility] 100 mg 100 mg e 100 mg Family tablet TAKE tablet TAKE tablet Pract[facility] 1 TABLET BY 1 TABLET BY TAKE 1 e MOUTH THREE MOUTH THREE TABLET BY TIMES DAILY TIMES DAILY MOUTH THREE TIMES DAILY hydrochloro hydrochloro No hydrochlor [facility] thiazide thiazide othiazide Fa davida 12.5 [...] DAILY WITH MEALS ipratropium ipratropium No ipratropiu [facility] bromide bromide m bromide Fami ly 0.02 % 0.02 % 0.02 % Practic solution solution solution e for for for inhalation inhalation inhalation lisinopril lisinopril No lisinopril [facility] 40 mg 40 mg 40 mg Family tablet TAKE tablet TAKE tablet Pract[facility] 1/2 TABLET 1/2 TABLET TAKE 1/2 e BY MOUTH BY MOUTH TABLET BY TWICE DAILY TWICE DAILY MOUTH TWICE DAILY mesalamine mesalamine No mesalamine [facility] ER 0.375 ER 0.375 ER 0.375 Fam ramses gram gram gram Practic capsule,ext capsule,ext capsule,ex e ended ended tended release 24 release 24 release 24 hr TAKE 4 hr TAKE 4 hr TAKE 4 CAPSULES BY CAPSULES BY CAPSULES MOUTH DAILY MOUTH DAILY BY MOUTH DAILY metformin metformin No metformin [facility] 1,000 mg 1,000 mg 1,000 mg Fam ramses tablet TAKE tablet TAKE tablet Pract[facility] 1 TABLET BY 1 TABLET BY TAKE 1 e MOUTH TWICE MOUTH TWICE TABLET BY DAILY WITH DAILY WITH MOUTH MEALS MEALS TWICE DAILY WITH MEALS metoprolol metoprolol No metoprolol [facility] tartrate tartrate tartrate Fam ramses 100 [...] TABLET BY MOUTH DAILY nitroglycer nitroglycer nitrolisa [facility] in 0.4 mg in 0.4 mg rin 0.4 mg [facility] sublingual sublingual sublingual Pract[facility] tablet tablet [...] Immunizations Ordered Filled Immunization Date Status Comments [facility] e Immunization Name Name Influenza Virus 2022-09-21 Completed [facility], 00:00:00 [place] [facility] Preserv and ABX Branch Free 6 MO-64 YRS Influenza Virus 2022-09-21 Completed [facility], 00:00:00 [place] [facility] Preserv and ABX Branch Free 6 MO-64 YRS Influenza Virus 2022-09-21 Completed [facility], 00:00:00 [place] [facility] Preserv and ABX Branch Free 6 MO-64 YRS Influenza Virus 2022-09-21 Completed [facility], 00:00:00 [place] [facility] Preserv and ABX Branch Free 6 MO-64 YRS Influenza Virus 2022-09-21 Completed [facility], 00:00:00 [place] [facility] Preserv and ABX Branch Free 6 MO-64 YRS Influenza Virus 2022-09-21 Completed [facility], 00:00:00 [place] [facility] Preserv and ABX Branch Free 6 MO-64 YRS Influenza Virus 2022-09-21 Completed [facility], 00:00:00 [place] [facility] Preserv and ABX Branch Free 6 MO-64 YRS Influenza Virus 2022-09-21 Completed [facility], 00:00:00 [place] [facility] Preserv and ABX Branch Free 6 MO-64 YRS Influenza Virus 2022-09-21 Completed [facility], 00:00:00 [place] [facility] Preserv and ABX Branch Free 6 MO-64 YRS Influenza Virus 2022-09-21 Completed [facility], 00:00:00 [place] [facility] Preserv and ABX Branch Free [...] [facility], 00:00:00 [facility] dical Preserv and ABX Branch Free 6 MO-64 YRS SARS-COV-2 COVID-19 2021-07-11 Completed Unive rsity of MODERNA VACCINE 00:00:00 [facility] SARS-COV-2 COVID-19 2021-07-11 Completed [facility]ive rs[facility] of MODERNA VACCINE 00:00:00 [facility] SARS-COV-2 COVID-19 2021-07-11 Completed [facility]ive rs[facility] of MODERNA VACCINE 00:00:00 [facility] SARS-COV-2 COVID-19 2021-07-11 Completed [facility] rs[facility] of MODERNA VACCINE 00:00:00 [facility] Branch SARS-COV-2 COVID-19 2021-07-11 Completed [facility]ive rsity of MODERNA VACCINE 00:00:00 [facility] SARS-COV-2 COVID-19 2021-07-11 Completed [facility]ive rsity of MODERNA VACCINE 00:00:00 [facility] SARS-COV-2 COVID-19 2021-07-11 Completed [facility]ive rsity of MODERNA VACCINE 00:00:00 [facility] SARS-COV-2 COVID-19 2021-07-11 Completed [...] Unive rsity of MODERNA 12+ YRS 00:00:00 [facility] VACCINE Branch SARS-COV-2 COVID-19 2020-12-03 Completed Unive rsity of MODERNA 12+ YRS 00:00:00 [facility] VACCINE Branch Influenza Virus 2020-11-13 Completed Universit [...] [facility] IM 6+ MO Branch Pneumococcal 2016-09-11 Completed [facility] o f Polysaccharide, 00:00:00 [place] [facility] PPSV23 (PNEUMOVAX) Branch Influenza Virus 2016-09-11 Completed [facility] of Vaccine (3+ yrs) 00:00:00 [facility] dical Branch Pneumococcal 2016-09-11 Completed [facility] o f Polysaccharide, 00:00:00 [place] [facility] PPSV23 (PNEUMOVAX) Branch Influenza Virus 2016-09-11 Completed [facility] of Vaccine (3+ yrs) 00:00:00 [facility] dical Branch Pneumococcal 2016-09-11 Completed University o f Polysaccharide, 00:00:00 [place] [facility] PPSV23 (PNEUMOVAX) Branch Influenza Virus 2016-09-11 Completed [facility] of Vaccine (3+ yrs) 00:00:00 [facility] dicwy Branch Pneumococcal 2016-09-11 Completed [facility] o f Polysaccharide, 00:00:00 [place] [facility] PPSV23 (PNEUMOVAX) Branch Influenza Virus 2016-09-11 Completed [facility] of Vaccine (3+ yrs) 00:00:00 [facility] dicwy Branch Pneumococcal 2016-09-11 Completed University o f Polysaccharide, 00:00:00 [place] [facility] PPSV23 (PNEUMOVAX) Branch Influenza Virus 2016-09-11 Completed [facility] of Vaccine (3+ yrs) 00:00:00 [facility] dicwy Branch Pneumococcal 2016-09-11 Completed [facility] o f Polysaccharide, 00:00:00 [place] [facility] PPSV23 (PNEUMOVAX) Branch Influenza Virus 2016-09-11 Completed [facility] of Vaccine (3+ yrs) 00:00:00 [facility] dical Branch Pneumococcal 2016-09-11 Completed University o f Polysaccharide, 00:00:00 [place] [facility] PPSV23 (PNEUMOVAX) Branch Influenza Virus 2016-09-11 Completed [facility] of Vaccine (3+ yrs) 00:00:00 [facility] Branch Pneumococcal 2016-09-11 Completed University o f Polysaccharide, 00:00:00 [place] [facility] PPSV23 (PNEUMOVAX) Branch Influenza Virus 2016-09-11 Completed [facility] of Vaccine (3+ yrs) 00:00:00 [facility] Branch Pneumococcal 2016-09-11 Completed University o f Polysaccharide, 00:00:00 [place] [facility] PPSV23 (PNEUMOVAX) Branch Influenza Virus 2016-09-11 Completed [facility] of Vaccine (3+ yrs) 00:00:00 [facility] Branch Pneumococcal 2016-09-11 Completed University o f Polysaccharide, 00:00:00 [place] [facility] PPSV23 (PNEUMOVAX) Branch Influenza Virus 2016-09-11 Completed [facility] of Vaccine (3+ yrs) 00:00:00 [facility] Branch Pneumococcal 2016-09-11 Completed University o f Polysaccharide, 00:00:00 [place] [facility] PPSV23 (PNEUMOVAX) Branch Influenza Virus 2016-09-11 Completed [facility] Vaccine (3+ yrs) 00:00:00 [facility] Branch Pneumococcal 2016-09-11 Completed University o f Polysaccharide, 00:00:00 [place] [facility] PPSV23 (PNEUMOVAX) [facility] Influenza Virus 2016-09-11 Completed [facility]it y of Vaccine (3+ yrs) 00:00:00 [facility] Pneumococcal 2016-09-11 Completed [facility] o f Polysaccharide, 00:00:00 [place] [facility] PPSV23 (PNEUMOVAX) [facility] Influenza Virus 2016-09-11 Completed [facility]it y of Vaccine (3+ yrs) 00:00:00 [facility] Pneumococcal 2016-09-11 Completed [facility] o f Polysaccharide, 00:00:00 [place] [facility] PPSV23 (PNEUMOVAX) Branch Influenza Virus 2016-09-11 Completed [facility]it y of Vaccine (3+ yrs) 00:00:00 [facility] Pneumococcal 2016-09-11 Completed University o f Polysaccharide, 00:00:00 [place] [facility] PPSV23 (PNEUMOVAX) Branch Influenza Virus 2016-09-11 Completed Universit y of Vaccine (3+ yrs) 00:00:00 [facility] Pneumococcal 2016-09-11 Completed University o f Polysaccharide, 00:00:00 [place] [facility] PPSV23 (PNEUMOVAX) Branch Influenza Virus 2016-09-11 Completed Universit y of Vaccine (3+ yrs) 00:00:00 [facility] Pneumococcal 2015-04-11 Completed University o f Polysaccharide, 00:00:00 [place] [facility] PPSV23 (PNEUMOVAX) Branch Pneumococcal 2015-04-11 [...] Universit y of Vaccine (3+ yrs) 00:00:00 [facility] dical Branch Influenza Virus 2013-09-29 Completed Universit y of Vaccine (3+ yrs) 00:00:00 [facility] Influenza Virus 2013-09-29 Completed Universit y of Vaccine (3+ yrs) 00:00:00 [facility] Influenza Virus 2013-09-29 Completed Universit y of Vaccine (3+ yrs) 00:00:00 [facility] Influenza Virus 2013-09-29 Completed Universit y of Vaccine (3+ yrs) 00:00:00 [facility] Flu Trivalent 2013-09-29 Completed University of 00:00:00 [facility] Influenza Virus 2013-09-29 Completed Universit y of Vaccine (3+ yrs) 00:00:00 [facility] Flu Trivalent 2013-09-29 Completed University of 00:00:00 [facility] Influenza Virus 2013-09-29 Completed Universit y of Vaccine (3+ yrs) 00:00:00 [facility] Flu Trivalent 2013-09-29 Completed University of 00:00:00 [facility] Influenza Virus 2013-09-29 Completed Universit y of Vaccine (3+ yrs) 00:00:00 [facility] Flu Trivalent 2013-09-29 Completed University of 00:00:00 [facility] Influenza Virus 2013-09-29 Completed Universit y of Vaccine (3+ yrs) 00:00:00 [facility] Flu Trivalent 2013-09-29 Completed University of 00:00:00 [facility] Influenza Virus 2013-09-29 Completed Universit y of Vaccine (3+ yrs) 00:00:00 [facility] Flu Trivalent 2013-09-29 Completed University of 00:00:00 [facility] Influenza Virus 2013-09-29 Completed Universit y of Vaccine (3+ yrs) 00:00:00 [facility] Flu Trivalent 2013-09-29 Completed University of 00:00:00 [facility] Influenza Virus 2013-09-29 Completed Universit y of Vaccine (3+ yrs) 00:00:00 [facility] Flu Trivalent 2013-09-29 Completed University of 00:00:00 [facility] Influenza Virus 2013-09-29 Completed Universit y of Vaccine (3+ yrs) 00:00:00 [facility] Flu Trivalent 2013-09-29 Completed University of 00:00:00 [facility] Influenza Virus 2013-09-29 Completed Universit y of Vaccine (3+ yrs) 00:00:00 [facility] Flu Trivalent 2013-09-29 Completed University of 00:00:00 [facility] Influenza Virus 2013-09-29 Completed Universit y of Vaccine (3+ yrs) 00:00:00 [facility] Flu Trivalent 2013-09-29 Completed University of 00:00:00 [facility] Influenza Virus 2013-09-29 Completed Universit y of Vaccine (3+ yrs) 00:00:00 [facility] Flu Trivalent 2013-09-29 Completed University of 00:00:00 [facility] Influenza Virus 2012-11-25 Completed Universit y of Vaccine (3+ yrs) 00:00:00 [facility] Influenza Virus 2012-11-25 Completed Universit y of Vaccine (3+ yrs) 00:00:00 [facility] Influenza Virus 2012-11-25 Completed Universit y of Vaccine (3+ yrs) 00:00:00 [facility] Influenza Virus 2012-11-25 Completed Universit y of Vaccine (3+ yrs) 00:00:00 [facility] Influenza Virus 2012-11-25 Completed Universit y of Vaccine (3+ yrs) 00:00:00 [facility] Flu Trivalent 2012-11-25 Completed University of 00:00:00 [facility] Influenza Virus 2012-11-25 Completed Universit y of Vaccine (3+ yrs) 00:00:00 [facility] Flu Trivalent 2012-11-25 Completed University of 00:00:00 [facility] Influenza Virus 2012-11-25 Completed Universit y of Vaccine (3+ yrs) 00:00:00 [facility] Flu Trivalent 2012-11-25 Completed University of 00:00:00 [facility] Influenza Virus 2012-11-25 Completed Universit y of Vaccine (3+ yrs) 00:00:00 [facility] Flu Trivalent 2012-11-25 Completed University of 00:00:00 [facility] Influenza Virus 2012-11-25 Completed Universit y of Vaccine (3+ yrs) 00:00:00 [facility] Flu Trivalent 2012-11-25 Completed University of 00:00:00 [facility] Influenza Virus 2012-11-25 Completed Universit y of Vaccine (3+ yrs) 00:00:00 [facility] Flu Trivalent 2012-11-25 Completed University of 00:00:00 [facility] Influenza Virus 2012-11-25 Completed Universit y of Vaccine (3+ yrs) 00:00:00 [facility] Flu Trivalent 2012-11-25 Completed University of 00:00:00 [facility] Influenza Virus 2012-11-25 Completed Universit y of Vaccine (3+ yrs) 00:00:00 [facility] Flu Trivalent 2012-11-25 Completed University of 00:00:00 [facility] Influenza Virus 2012-11-25 Completed Universit y of Vaccine (3+ yrs) 00:00:00 [facility] Flu Trivalent 2012-11-25 Completed University of 00:00:00 [facility] Influenza Virus 2012-11-25 Completed Universit y of Vaccine (3+ yrs) 00:00:00 [facility] Flu Trivalent 2012-11-25 Completed University of 00:00:00 [facility] Influenza Virus 2012-11-25 Completed Universit y of Vaccine (3+ yrs) 00:00:00 [facility] Flu Trivalent 2012-11-25 Completed University of 00:00:00 [facility] Influenza Virus 2012-11-25 Completed Universit y of Vaccine (3+ yrs) 00:00:00 [facility] Flu Trivalent 2012-11-25 Completed University of 00:00:00 [facility] Vital Signs Vital Name Observation Time Observation Value Comments Source Systolic blood 2022-10-21 15:09:00 141 mm[Hg] Univer sity of pressure [facility] Diastolic blood 2022-10-21 15:09:00 81 mm[Hg] Unive rsity of pressure [facility] Heart rate 2022-10-21 15:08:00 84 /min [facility] Body height 2022-10-21 15:08:00 160 cm [facility] Body weight 2022-10-21 15:08:00 151.275 kg [facility] BMI 2022-10-21 15:08:00 59.08 kg/m2 [facility] Oxygen saturation in 2022-10-21 15:08:00 95 /min University of Arterial blood by [facility] Pulse oximetry Branch Systolic blood 2022-09-21 15:34:00 151 mm[Hg] Univer sity of pressure [facility] Diastolic blood 2022-09-21 15:34:00 74 mm[Hg] Unive rsity of pressure [facility] Heart rate 2022-09-21 15:33:00 86 /min [facility]i ty [facility] Body height 2022-09-21 15:33:00 160 cm [facility]i ty [facility] Body weight 2022-09-21 15:33:00 149.778 kg [facility]i ty [facility] BMI 2022-09-21 15:33:00 58.49 kg/m2 [facility] Oxygen saturation in 2022-09-21 15:33:00 92 /min University of Arterial blood by [facility] Pulse oximetry Branch Systolic blood 2022-08-25 14:59:00 121 mm[Hg] Univer sity of pressure [facility] Diastolic blood 2022-08-25 14:59:00 75 mm[Hg] Unive rsity of pressure [facility] Heart rate 2022-08-25 14:59:00 108 /min [facility]i ty [facility] Body temperature 2022-08-25 14:59:00 36.67 Pat Univ ersity of [facility] Body height 2022-08-25 14:59:00 160 cm [facility]i ty [facility] Body weight 2022-08-25 14:59:00 146.512 kg [facility] BMI 2022-08-25 14:59:00 57.22 kg/m2 [facility] Oxygen saturation in 2022-08-25 14:59:00 96 /min University of Arterial blood by [facility] Pulse oximetry Branch Body temperature 2022-06-16 12:58:00 36.33 Pat [facility] Body height 2022-06-16 12:58:00 160 cm [facility] Body weight 2022-06-16 12:58:00 151.32 kg [facility] BMI 2022-06-16 12:58:00 59.09 kg/m2 [facility] Systolic blood 2022-03-18 14:25:00 120 mm[Hg] Univer sity of pressure [facility] Diastolic blood 2022-03-18 14:25:00 70 mm[Hg] Unive rsity of pressure [facility] Heart rate 2022-03-18 14:25:00 78 /min Universi ty of [facility] Body height 2022-03-18 14:25:00 160 cm Universi ty of [facility] Body weight 2022-03-18 14:25:00 150.367 kg Universi ty of [facility] BMI 2022-03-18 14:25:00 58.72 kg/m2 Universi ty [facility] Oxygen saturation in 2022-03-18 14:25:00 95 /min [facility] Arterial blood by [facility] Pulse oximetry Branch HEIGHT 2022-01-09 09:38:00 160 cm WEIGHT 2022-01-09 09:38:00 151.501 kg HEIGHT 2022-01-08 12:04:00 160 cm WEIGHT 2022-01-08 12:04:00 149.687 kg HEIGHT 2022-01-09 09:38:00 160 cm WEIGHT 2022-01-09 09:38:00 151.501 kg HEIGHT 2022-01-08 12:04:00 160 cm WEIGHT 2022-01-08 12:04:00 149.687 kg Systolic blood 2021-11-06 19:35:00 132 mm[Hg] [facility] of pressure Medicine Diastolic blood 2021-11-06 19:35:00 69 mm[Hg] [facility] Medicine Heart rate 2021-11-06 19:35:00 93 /min [facility] Body temperature 2021-11-06 19:35:00 36 Pat [facility] Respiratory rate 2021-11-06 19:35:00 18 /min [facility] Body height 2021-11-06 19:35:00 160 cm [facility] Body weight 2021-11-06 19:35:00 151.32 kg [facility] BMI 2021-11-06 19:35:00 59.09 kg/m2 [facility] Medicine BP Diastolic 2021-08-21 00:00:00 89 mm[Hg] [facility] Height 2021-08-21 00:00:00 63 [in_i] [facility] BMI (Body Mass 2021-08-21 00:00:00 58.1 kg/m2 [facility] Practice BP Systolic 2021-08-21 00:00:00 131 mm[Hg] [facility] Body Weight 2021-08-21 00:00:00 328 [lb_av] [facility] Systolic blood 2023-03-11 16:45:59 129 mm[Hg] [facility]iver [facility]ity of [facility] Diastolic blood 2023-03-11 16:45:59 76 mm[Hg] [facility]ive rsity of pressure [facility] Heart rate 2023-03-11 16:45:59 82 /min [facility]i ty [facility] Body temperature 2023-03-11 16:45:59 36.39 Pat [facility] ersity [facility] Respiratory rate 2023-03-11 16:45:59 16 /min [facility] ersity [facility] Body weight 2023-03-11 16:45:59 138.3 kg [facility]i ty [facility] BMI 2023-03-11 16:45:59 57.56 kg/m2 [facility] Oxygen saturation in 2023-03-11 16:45:59 93 /min [facility] Arterial blood by Bere valentin Pulse oximetry [facility] Body height 2023-02-06 13:19:00 155 cm [facility]i ty [facility] Systolic blood 2022-01-09 13:53:00 157 mm[Hg] [facility] Diastolic blood 2022-01-09 13:53:00 89 mm[Hg] [facility] Heart rate 2022-01-09 13:53:00 80 /min [facility] Body temperature 2022-01-09 13:53:00 36.33 Pat [facility] Respiratory rate 2022-01-09 13:53:00 19 /min [facility] Oxygen saturation in 2022-01-09 13:53:00 93 /min [facility] Arterial blood by Medical Ce nter Pulse oximetry Body height 2022-01-09 09:38:00 160 cm [facility] Body weight 2022-01-09 09:38:00 151.501 kg [facility] BMI 2022-01-09 09:38:00 59.17 kg/m2 [facility] Systolic (mm Hg) 2018-04-04 19:53:00 [place] [facility] [place] Diastolic (mm Hg) 2018-04-04 19:53:00 Mem [facility] [place] Respitory Rate 2018-04-04 19:53:00 [facility] [place] Systolic (mm Hg) 2018-04-04 19:41:00 [place] [facility] [place] Diastolic (mm Hg) 2018-04-04 19:41:00 Mem [facility] [place] Respitory Rate 2018-04-04 19:41:00 [facility] [place] Systolic (mm Hg) 2018-04-04 18:06:00 [facility] [place] Diastolic (mm Hg) 2018-04-04 18:06:00 Mem orial [place] Respitory Rate 2018-04-04 18:06:00 [facility] [place] Weight 2018-04-04 18:04:00 [facility] [place] BMI Calculated 2018-04-04 18:04:00 [facility] [place] Height 2018-03-30 16:54:00 160.02 cm [facility] [place] Respitory Rate 2018-03-21 22:06:00 [facility] [place] Systolic (mm Hg) 2018-03-21 22:06:00 [facility] [place] Diastolic (mm Hg) 2018-03-21 22:06:00 Mem [facility]rial [place] Respitory Rate 2018-03-21 21:53:00 [facility] [place] Systolic (mm Hg) 2018-03-21 21:53:00 [place] [facility] [place] Diastolic (mm Hg) 2018-03-21 21:53:00 Mem orial [place] Systolic (mm Hg) 2018-03-21 19:08:00 [place] [facility] [place] Diastolic (mm Hg) 2018-03-21 19:08:00 Mem [facility]rial [place] Respitory Rate 2018-03-21 19:08:00 [facility] [place] Height 2018 18:32:00 160.02 cm [facility] [place] [facility] 2018 18:32:00 [facility] Calculated 2018 18:32:00 Maynor Tsang Weight 2015-11-07 16:05:00 Yossi Seay BMI Calculated 2015-11-07 16:05:00 Maynor Tsang Height 2015-11-07 16:05:00 160.02 cm [facility] Procedures Procedure Date / Time Performing Clinician Source Performed COMPLETE BLOOD COUNT W/ 2023-03-11 Lorena Hdez [facility] versity of DIFFERENTIAL 16:15:10 [place] [facility] COMPREHENSIVE METABOLIC PANEL 2023-03-11 Lorena Hdez [place] 16:15:10 [place] [facility] MAGNESIUM LEVEL 2023-03-11 Lorena Hdez [place] 16:15:10 [place] [facility] Results CBC 2023-03-11 Lorena Hdez [place] 16:15:10 [place] [facility] MANUAL DIFFERENTIAL 2023-03-11 Lorena Hdez [facility] ity of 16:15:10 [place] [facility] GLUCOSE LEVEL 2023-03-11 Lorena Hdez [place] 16:15:10 [place] [facility] BLOOD UREA NITROGEN 2023-03-11 Lorena dHez [facility] ity of 16:15:10 [place] [facility] ELECTROLYTE PANEL 2023-03-11 [facility]orena Hdez [facility] 16:15[facility]10 [place] [facility] SERUM CREATININE 2023-03-11 Lorena Hdez [place] 16:15:10 [place] [facility] .GLOMERULAR FILTRATION RATE 2023-03-11 Lorena Hdez [place] 16:15:10 [place] [facility] CALCIUM LEVEL TOTAL 2023-03-11 Lorena Hdez [facility] ity of 16:15:10 [place] [facility] Birminghamevelin [facility] ALBUMIN LEVEL 2023-03-11 Lorena Hdez [place] 16:15:10 [place] [facility] ALKALINE PHOSPHATASE 2023-03-11 [facility] 16:15:10 [place] [facility] ALANINE AMINOTRANSFERASE 2023-03-11 Lorena Hdez Un iversity of 16:15:10 [place] [facility] ASPARTATE AMINOTRANSFERASE 2023-03-11 Lorena Hdez University of 16:15:10 [place] [facility] TOTAL PROTEIN 2023-03-11 Lorena Hdez [place] 16:15:10 [place] [facility] FRACTIONATED BILIRUBIN 2023-03-11 Lorena Hdez Univ ersity of 16:15:10 [place] [facility] COMPLETE BLOOD COUNT W/ 2023-03-03 Lorena Hdez Uni versity of DIFFERENTIAL 18:03:40 [place] [facility] COMPREHENSIVE METABOLIC PANEL 2023-03-03 Lorena Hdez [place] 18:03:40 [place] [facility] MAGNESIUM LEVEL 2023-03-03 Lorena Hdez [place] 18:03:40 [place] [facility] Results CBC 2023-03-03 Lorena Hdez [place] 18:03:40 [place] [facility] MANUAL DIFFERENTIAL 2023-03-03 Lorena Hdez [facility] ity of 18:03:40 [place] [facility] GLUCOSE LEVEL 2023-03-03 Lorena Hdez [place] 18:03:40 [place] [facility] BLOOD UREA NITROGEN 2023-03-03 Lorena Hdez [facility] ity of 18:03:40 [place] [facility] ELECTROLYTE PANEL 2023-03-03 Lorena Hdez Universit y of 18:03:40 [place] [facility] SERUM CREATININE 2023-03-03 Lorena Hdez [place] 18:03:40 [place] [facility] .GLOMERULAR FILTRATION RATE 2023-03-03 Lorena Hdez [place] 18:03:40 [place] [facility] CALCIUM LEVEL TOTAL 2023-03-03 Lorena Hdez [facility] ity of 18:03:40 [place] [facility] ALBUMIN LEVEL 2023-03-03 Lorena Hdez [place] 18:03:40 [place] MD [facility] ALKALINE PHOSPHATASE 2023-03-03 Lorena Hdez Univer sity of 18:03:40 [place] MD Rob [facility] ALANINE AMINOTRANSFERASE 2023-03-03 Lorena Hdez Un iversity of 18:03:40 [place] [facility] ASPARTATE AMINOTRANSFERASE 2023-03-03 Lorena Hdez University of 18:03:40 [place] [facility] TOTAL PROTEIN 2023-03-03 Lorena Hdez [place] 18:03:40 [place] [facility] FRACTIONATED BILIRUBIN 2023-03-03 Lorena Hdez [facility] ersity of 18:03:40 [place] [facility] POC GLUCOSE SCREEN 2023-02-16 [facility] y of 17:02:00 Meg [place] [facility] ANTI-XA LEVEL 2023-02-16 [facility] of 16:13:00 Silvia [place] [facility] POC GLUCOSE SCREEN 2023-02-16 [facility] y of 12:20:00 Meg [place] [facility] MAGNESIUM LEVEL 2023-02-16 [facility] of 11:15:00 [facility] [place] [facility] PHOSPHORUS LEVEL 2023-02-16 [facility] [place] [facility] COMPLETE BLOOD COUNT W/ 2023-02-16 Mark [facility] ty of DIFFERENTIAL 11:15:00 [facility] [place] [facility] COMPREHENSIVE METABOLIC PANEL 2023-02-16 Thao Romero V. Un iversity of 11:15:00 [place] [facility] Rob [facility] GLUCOSE LEVEL 2023-02-16 Thao Romero V. [place] 11:15:00 Bere Rob [facility] BLOOD UREA NITROGEN 2023-02-16 Thao Romero V. [place] f 11:15:00 [place] [facility] B[facility] ELECTROLYTE PANEL 2023-02-16 Thao Romero V. [place] 11:15:00 Bere Rob [facility] SERUM CREATININE 2023-02-16 Thao Romero V. [place] 11:15:00 [place] [facility] .GLOMERULAR FILTRATION RATE 2023-02-16 Estella Thao Yogi. Univ ersity of 11:15:00 [place] [facility] CALCIUM LEVEL TOTAL 2023-02-16 Thao Romero V. [place] f 11:15:00 [place] [facility] ALBUMIN LEVEL 2023-02-16 Thao Romero V. [place] 11:15:00 [place] [facility] ALKALINE PHOSPHATASE 2023-02-16 Thao Romero . [place] 11:15:00 [place] [facility] ALANINE AMINOTRANSFERASE 2023-02-16 Thao Romero . Univers ity of 11:15:00 [place] [facility] ASPARTATE AMINOTRANSFERASE 2023-02-16 Thao Romero V. Unive rsity of 11:15:00 [place] [facility] TOTAL PROTEIN 2023-02-16 Thao Romero V. [place] 11:15:00 [place] [facility] FRACTIONATED BILIRUBIN 2023-02-16 Thao Romero V. Universit y of 11:15:00 [place] [facility] Results CBC 2023-02-16 [facility] of 11:15:00 [facility] 2023-02-16 [facility] o f 11:15:00 [facility] POC GLUCOSE SCREEN 2023-02-16 [facility] o f 02:26:00 [facility] POC GLUCOSE SCREEN 2023-02-15 [facility] o f 22:30:00 [facility] POC GLUCOSE SCREEN 2023-02-15 [facility] o f 17:15:00 [facility] POC GLUCOSE SCREEN 2023-02-15 [facility] o f 12:03:00 [facility] MAGNESIUM LEVEL 2023-02-15 Mark [place] [facility] 11:24:00 [facility] MD Rob [facility] PHOSPHORUS LEVEL 2023-02-15 [facility] 11:24:00 [place] [facility] COMPLETE BLOOD COUNT W/ 2023-02-15 Noel Floresi ty of DIFFERENTIAL 11:24:00 [facility] COMPREHENSIVE METABOLIC PANEL 2023-02-15 Thao Romero V. Un iversity of 11:24:00 [place] [facility] GLUCOSE LEVEL 2023-02-15 Thao Romero V. University of 11:24:00 [place] [facility] BLOOD UREA NITROGEN 2023-02-15 Thao Romero V. University o f 11:24:00 [place] [facility] ELECTROLYTE PANEL 2023-02-15 Thao Romero V. [place] 11:24:00 [place] [facility] SERUM CREATININE 2023-02-15 Thao Romero V. [place] 11:24:00 [place] [facility] .GLOMERULAR FILTRATION RATE 2023-02-15 Thao Romero V. Univ ersity of 11:24:00 [place] [facility] CALCIUM LEVEL TOTAL 2023-02-15 Thao Romero V. [place] f 11:24:00 [place] [facility] ALBUMIN LEVEL 2023-02-15 Thao Romero V. [place] 11:24:00 [place] [facility] ALKALINE PHOSPHATASE 2023-02-15 Thao Romero V. [place] [facility] 11:24:00 [place] [facility] ALANINE AMINOTRANSFERASE 2023-02-15 Thao Romero V. Univers ity of 11:24:00 [place] [facility] ASPARTATE AMINOTRANSFERASE 2023-02-15 Thao Romero V. Unive rsity of 11:24:00 [place] [facility] TOTAL PROTEIN 2023-02-15 Thao Romero V. [place] 11:24:00 [place] [facility] FRACTIONATED BILIRUBIN 2023-02-15 Thao Romero V. Universit y of 11:24:00 [place] [facility] Results CBC 2023-02-15 Mark [place] of 11:24:00 [facility] MANUAL DIFFERENTIAL 2023-02-15 Mark [place] o f 11:24:00 [facility] MD [facility] POC GLUCOSE SCREEN 2023-02-15 [facility] o f 02:05:00 [facility] POC GLUCOSE SCREEN 2023-02-14 [facility] o f 22:46:00 [facility] POC GLUCOSE SCREEN 2023-02-14 [facility] o f 16:34:00 [facility] POC GLUCOSE SCREEN 2023-02-14 [facility] o f 13:58:00 [facility] MAGNESIUM LEVEL 2023-02-14 [facility] 11:24:00 [facility] PHOSPHORUS LEVEL 2023-02-14 [facility] 11:24[facility]00 [facility] COMPLETE BLOOD COUNT W/ 2023-02-14 Mark, [facility] ty [facility] DIFFERENTIAL 11:24:00 [facility] COMPREHENSIVE METABOLIC PANEL 2023-02-14 Thao Romero V. iversity of 11:24:00 [place] [facility] GLUCOSE LEVEL 2023-02-14 Thao Romero V. [facility] 11:24:00 [place] [facility] BLOOD UREA NITROGEN 2023-02-14 [facility] f 11:24:00 [place] [facility] ELECTROLYTE PANEL 2023-02-14 Thao Romero V. [facility] 11:24:00 [place] [facility] SERUM CREATININE 2023-02-14 Thao Romero V. [facility] 11:24:00 [place] [facility] .GLOMERULAR FILTRATION RATE 2023-02-14 Thao Romero V. Univ ersity of 11:24:00 [place] [facility] CALCIUM LEVEL TOTAL 2023-02-14 Thao Romero V. [place] o f 11:24:00 [place] [facility] ALBUMIN LEVEL 2023-02-14 Thao Romero V. [facility] 11:24:00 [place] [facility] ALKALINE PHOSPHATASE 2023-02-14 Thao Romero V. University of 11:24:00 [place] [facility] ALANINE AMINOTRANSFERASE 2023-02-14 Thao Romero V. Univers ity of 11:24:00 [place] [facility] ASPARTATE AMINOTRANSFERASE 2023-02-14 Thao Romero V. Unive rsity of 11:24:00 [place] [facility] TOTAL PROTEIN 2023-02-14 Thao Romero V. [place] of 11:24:00 [place] [facility] FRACTIONATED BILIRUBIN 2023-02-14 Thao Romero V. Universit y of 11:24:00 [place] [facility] Results CBC 2023-02-14 Mark [place] of 11:24:00 [facility] MANUAL DIFFERENTIAL 2023-02-14 Mark [place] o f 11:24:00 [facility] POC GLUCOSE SCREEN 2023-02-14 [facility] o f 02:44:00 [facility] POC GLUCOSE SCREEN 2023-02-13 [facility] o f 23:32:00 [facility] POC GLUCOSE SCREEN 2023-02-13 [facility] o f 18:19:00 [facility] POC GLUCOSE SCREEN 2023-02-13 [facility] o f 12:37:00 [facility] MAGNESIUM LEVEL 2023-02-13 Mark [place] of 11:42:00 [facility] PHOSPHORUS LEVEL 2023-02-13 Mark [place] of 11:42:00 [facility] COMPLETE BLOOD COUNT W/ 2023-02-13 Mark [facility] ty of DIFFERENTIAL 11:42:00 [facility] COMPREHENSIVE METABOLIC PANEL 2023-02-13 Thao Romero V. Un iversity of 11:42:00 [place] [facility] Birminghamevelin [facility] GLUCOSE LEVEL 2023-02-13 Thao Romero V. [place] of 11:42:00 [place] [facility] BLOOD UREA NITROGEN 2023-02-13 Romero, [facility] o f 11:42:00 [place] [facility] ELECTROLYTE PANEL 2023-02-13 Estella [facility] [place] of 11:42:00 [place] [facility] SERUM CREATININE 2023-02-13 Thao Romero Rodger [place] of 11:42:00 [place] [facility] .GLOMERULAR FILTRATION RATE 2023-02-13 Thao Romero [facility] ersity of 11:42:00 [place] [facility] CALCIUM LEVEL TOTAL 2023-02-13 Romero, [facility] o f 11:42:00 [place] [facility] ALBUMIN LEVEL 2023-02-13 Romero, [facility] of 11:42:00 [place] [facility] ALKALINE PHOSPHATASE 2023-02-13 Thao Romero [facility] of 11:42:00 [place] [facility] ALANINE AMINOTRANSFERASE 2023-02-13 Estella [facility] Univers ity of 11:42:00 [place] [facility] ASPARTATE AMINOTRANSFERASE 2023-02-13 Estella [facility] Unive rsity of 11:42:00 [place] [facility] TOTAL PROTEIN 2023-02-13 Romero, [facility] of 11:42:00 [place] [facility] FRACTIONATED BILIRUBIN 2023-02-13 Thao Romero Universit y of 11:42:00 [place] [facility] Results CBC 2023-02-13 Mark [place] of 11:42:00 [facility] MANUAL DIFFERENTIAL 2023-02-13 [facility] o f 11:42:00 [facility] POC GLUCOSE SCREEN 2023-02-13 [facility] o f 03:26:00 [facility] POC GLUCOSE SCREEN 2023-02-13 [facility] o f 00:20:00 [facility] POC GLUCOSE SCREEN 2023-02-12 [facility] o f 20:06:00 [facility] POC GLUCOSE SCREEN 2023-02-12 [facility] o f 15:18:00 [facility] GENERAL LABORATORY ADD ON 2023-02-12 Kimberli Cortes sity of TEST 14:33:00 [place] [facility] POC GLUCOSE SCREEN 2023-02-12 [facility] o f 13:55:00 [facility] MAGNESIUM LEVEL 2023-02-12 [facility] 10:34:00 [facility] PHOSPHORUS LEVEL 2023-02-12 Mark [facility] 10:34:00 [facility] COMPLETE BLOOD COUNT W/ 2023-02-12 Mark [facility] ty of DIFFERENTIAL 10:34:00 [facility] COMPREHENSIVE METABOLIC PANEL 2023-02-12 Thao Romero V. iversity of 10:34:00 [place] [facility] GLUCOSE LEVEL 2023-02-12 Thao Romero V. [facility] 10:34:00 [place] [facility] BLOOD UREA NITROGEN 2023-02-12 Thao Romero V. [place] o f 10:34:00 [place] [facility] ELECTROLYTE PANEL 2023-02-12 Thao Romero V. [place] of 10:34:00 [place] [facility] SERUM CREATININE 2023-02-12 Thao Romero V. [facility] 10:34:00 [place] [facility] .GLOMERULAR FILTRATION RATE 2023-02-12 Thao Romero V. [facility] ersity of 10:34:00 [place] [facility] CALCIUM LEVEL TOTAL 2023-02-12 Thao Romero V. [place] o f 10:34:00 [place] [facility] ALBUMIN LEVEL 2023-02-12 Thao Romero V. [place] of 10:34:00 [place] [facility] ALKALINE PHOSPHATASE 2023-02-12 Thao Romero V. [place] of 10:34:00 [place] [facility] ALANINE AMINOTRANSFERASE 2023-02-12 Thao Romero V. [facility] ity of 10:34:00 [place] [facility] ASPARTATE AMINOTRANSFERASE 2023-02-12 [facility]. [facility] of 10:34:00 [place] [facility] TOTAL PROTEIN 2023-02-12 RomeroThao huynh [facility] of 10:34:00 [place] [facility] FRACTIONATED BILIRUBIN 2023-02-12 [facility]ao [facility] 10:34:00 [place] [facility] Results CBC 2023-02-12 [facility] of 10:34:00 [facility] MANUAL DIFFERENTIAL 2023-02-12 [facility] o f 10:34:00 [facility] PROCALCITONIN 2023-02-12 [facility] of 10:34:00 [facility] POC GLUCOSE SCREEN 2023-02-12 [facility] o f 03:16:00 [facility] POC GLUCOSE SCREEN 2023-02-12 [facility] o f 00:01:00 [facility] POC GLUCOSE SCREEN 2023-02-11 [facility] o f 18:59:00 [facility] POC GLUCOSE SCREEN 2023-02-11 [facility] o f 13:46:00 [facility] GLUCOSE LEVEL 2023-02-11 Thao Romero [facility] of 10:42:00 [place] [facility] BLOOD UREA NITROGEN 2023-02-11 Thao Romero [facility] o f 10:42:00 [place] [facility] ELECTROLYTE PANEL 2023-02-11 Thao Romero [facility] of 10:42:00 [place] [facility] SERUM CREATININE 2023-02-11 Thao Romero [facility] of 10:42:00 [place] [facility] .GLOMERULAR FILTRATION RATE 2023-02-11 [facility] of 10:42:00 [place] [facility] CALCIUM LEVEL TOTAL 2023-02-11 Thao Romero [facility] o f 10:42:00 [place] [facility] ALBUMIN LEVEL 2023-02-11 Thao Romero V. University of 10:42:00 [place] [facility] ALKALINE PHOSPHATASE 2023-02-11 Thao Romero V. University of 10:42:00 [place] MD Rob [facility] ALANINE AMINOTRANSFERASE 2023-02-11 Thao Romero V. Univers ity of 10:42:00 [place] [facility] ASPARTATE AMINOTRANSFERASE 2023-02-11 Thao Romero V. Unive rsity of 10:42:00 [place] [facility] TOTAL PROTEIN 2023-02-11 Thao Romero V. University of 10:42:00 [place] [facility] FRACTIONATED BILIRUBIN 2023-02-11 Thao Romero V. Universit y of 10:42:00 [place] [facility] Results CBC 2023-02-11 Mark [place] of 10:42:00 [facility] MANUAL DIFFERENTIAL 2023-02-11 Mark [place] o f 10:42:00 [facility] MAGNESIUM LEVEL 2023-02-11 [facility] 10:42[facility]00 [facility] PHOSPHORUS LEVEL 2023-02-11 [facility] of 10:42:00 [facility] COMPLETE BLOOD COUNT W/ 2023-02-11 Mark [facility] ty of DIFFERENTIAL 10:42:00 [facility] COMPREHENSIVE METABOLIC PANEL 2023-02-11 Thao Romero V. Un iversity of 10:42:00 [place] [facility] CT MAXILLOFACIAL AREA W 2023-02-11 [facility] ity of CONTRAST 09:15:00 [facility] GRIFFIN [facility] POC GLUCOSE SCREEN 2023-02-11 [facility] o f 03:42:00 Silvia Blackburn MD [facility] POC GLUCOSE SCREEN 2023-02-10 [facility] o f 22:17:00 [facility] POC GLUCOSE SCREEN 2023-02-10 [facility] o f 17:27:00 Silvia Bere GRIFFIN [facility] POC GLUCOSE SCREEN 2023-02-10 [facility] o f 13:52:00 Silvia [place] [facility] MAGNESIUM LEVEL 2023-02-10 [facility] 10:43:00 [facility] PHOSPHORUS LEVEL 2023-02-10 Mark, [place] of 10:43:00 [facility] COMPLETE BLOOD COUNT W/ 2023-02-10 Mark [facility] ty of DIFFERENTIAL 10:43:00 [facility] COMPREHENSIVE METABOLIC PANEL 2023-02-10 Thao Romero V. Un iversity of 10:43:00 [place] [facility] GLUCOSE LEVEL 2023-02-10 Thao Romero V. [place] of 10:43:00 [place] [facility] BLOOD UREA NITROGEN 2023-02-10 Thao Romero V. [place] o f 10:43:00 [place] [facility] ELECTROLYTE PANEL 2023-02-10 Thao Romero V. [place] of 10:43:00 [place] [facility] SERUM CREATININE 2023-02-10 Thao Romero V. [place] of 10:43:00 [facility] .GLOMERULAR FILTRATION RATE 2023-02-10 Thao Romero V. Univ ersity of 10:43:00 [place] [facility] CALCIUM LEVEL TOTAL 2023-02-10 Thao Romero V. [place] o f 10:43:00 [place] [facility] ALBUMIN LEVEL 2023-02-10 Thao Romero V. University of 10:43:00 [place] [facility] ALKALINE PHOSPHATASE 2023-02-10 Thao Romero V. [place] of 10:43:00 [place] [facility] ALANINE AMINOTRANSFERASE 2023-02-10 Thao Romero V. Univers ity of 10:43:00 [place] [facility] ASPARTATE AMINOTRANSFERASE 2023-02-10 Thao Romero V. Unive rsity of 10:43:00 [place] [facility] TOTAL PROTEIN 2023-02-10 Thao Romero V. University of 10:43:00 [facility] FRACTIONATED BILIRUBIN 2023-02-10 Thao Romero V. Universit y of 10:43:00 [place] [facility] Results CBC 2023-02-10 Mark [place] of 10:43:00 [facility] MANUAL DIFFERENTIAL 2023-02-10 [facility] o f 10:43:00 [facility] POC GLUCOSE SCREEN 2023-02-10 [facility] o f 03:27:00 [facility] POC GLUCOSE SCREEN 2023-02-09 [facility] o f 22:11:00 [facility] POC GLUCOSE SCREEN 2023-02-09 [facility] o f 18:18:00 [facility] POC GLUCOSE SCREEN 2023-02-09 [facility] o f 13:12:00 [facility] MAGNESIUM LEVEL 2023-02-09 [facility] 10:37:00 [facility] PHOSPHORUS LEVEL 2023-02-09 [facility] 10:37:00 [facility] COMPLETE BLOOD COUNT W/ 2023-02-09 Mark [facility] ty of DIFFERENTIAL 10:37:00 [facility] COMPREHENSIVE METABOLIC PANEL 2023-02-09 Thao Romero V. Un iversity of 10:37:00 [place] [facility] CREATINE KINASE 2023-02-09 Shelby José [place] of 10:37:00 [place] [facility] GLUCOSE LEVEL 2023-02-09 Thao Romero V. [place] of 10:37:00 [place] [facility] BLOOD UREA NITROGEN 2023-02-09 Thao Romero V. [place] o f 10:37:00 [place] [facility] ELECTROLYTE PANEL 2023-02-09 Thao Romero V. [facility] 10:37:00 [place] [facility] SERUM CREATININE 2023-02-09 Thao Romero V. [place] of 10:37:00 [place] [facility] .GLOMERULAR FILTRATION RATE 2023-02-09 Thao Romero V. [facility] ersity of 10:37:00 [place] Rob [facility] CALCIUM LEVEL TOTAL 2023-02-09 RomeroThao huynh Rodger [place] o f 10:37:00 [place] Liane olivier [facility] ALBUMIN LEVEL 2023-02-09 [facility] 10:37:00 [place] Rob [facility] ALKALINE PHOSPHATASE 2023-02-09 Thao Romero V. [place] of 10:37:00 [place] Liane olivier [facility] ALANINE AMINOTRANSFERASE 2023-02-09 Thao Romero V Univers ity of 10:37:00 [place] [facility] ASPARTATE AMINOTRANSFERASE 2023-02-09 Thao [facility] rsity of 10:37:00 [place] [facility] Birminghamevelin olivier [facility] TOTAL PROTEIN 2023-02-09 [facility] of 10:37:00 [place] [facility] FRACTIONATED BILIRUBIN 2023-02-09 Thao Romero V Universit y of 10:37:00 [place] Rob [facility] Results CBC 2023-02-09 [facility] of 10:37:00 [facility] MANUAL DIFFERENTIAL 2023-02-09 [facility] o f 10:37:00 [facility] POC GLUCOSE SCREEN 2023-02-09 Derrick Gill Universi ty of 03:21:00 [place] Liane olivier [facility] POC GLUCOSE SCREEN 2023-02-08 Derrick Gill Universi ty of 23:32:00 [place] Liane olivier [facility] US ARM VENOUS DOPPLER 2023-02-08 Derrick Gill Univlacho rsity of BILATERAL 23:28:54 [place] [facility] ECHOCARDIOGRAM 2D COMPLETE W 2023-02-08 Thao Romero V. Uni versity of CONTRAST 19:23:53 [place] Liane olivier [facility] POC GLUCOSE SCREEN 2023-02-08 Derrick Gill Universi ty of 17:21:00 [place] MD Rob [facility] POC GLUCOSE SCREEN 2023-02-08 Derrick Gill Universi ty of 12:46:00 [place] [facility] MAGNESIUM LEVEL 2023-02-08 [facility] 11:14:00 [facility] PHOSPHORUS LEVEL 2023-02-08 Mark [place] of 11:14: [facility] COMPLETE BLOOD COUNT W/ 2023-02-08 Noel Flores ty of DIFFERENTIAL 11:14:00 [facility] COMPREHENSIVE METABOLIC PANEL 2023-02-08 Thao Romero V. Un iversity of 11:14: [place] [facility] GLUCOSE LEVEL 2023-02-08 Thao Romero V. University of 11:14:00 [place] [facility] BLOOD UREA NITROGEN 2023-02-08 Thao Romero V. [place] o f 11:14: [place] [facility] ELECTROLYTE PANEL 2023-02-08 Thao Romero V. [place] of 11:14:00 [place] [facility] SERUM CREATININE 2023-02-08 Thao Romero V. [place] of 11:14:00 [place] [facility] .GLOMERULAR FILTRATION RATE 2023-02-08 Thao Romero V. Univ ersity of 11:14: [place] [facility] CALCIUM LEVEL TOTAL 2023-02-08 Thao Romero V. University o f 11:14: [place] [facility] ALBUMIN LEVEL 2023-02-08 Thao Romero V. [place] of 11:14: [place] [facility] ALKALINE PHOSPHATASE 2023-02-08 Thao Romero V. University of 11:14:00 [place] [facility] ALANINE AMINOTRANSFERASE 2023-02-08 Thao Romero V. Univers ity of 11:14:00 [place] [facility] ASPARTATE AMINOTRANSFERASE 2023-02-08 Thao Romero V. Unive rsity of 11:14:00 [place] [facility] TOTAL PROTEIN 2023-02-08 Thao Romero V. University of 11:14:00 [place] [facility] FRACTIONATED BILIRUBIN 2023-02-08 Thao Romero V. Universit y of 11:14:00 [place] [facility] Results CBC 2023-02-08 Mark [place] [facility] 11:14:00 [facility] MANUAL DIFFERENTIAL 2023-02-08 Mark [place] o f 11:14:00 [facility]artments[facility] [place] [facility] POC GLUCOSE SCREEN 2023-02-08 Cortes-Dellan, Derrick Universi ty of 02:47:00 [place] [facility] POC GLUCOSE SCREEN 2023-02-08 Cortes-Dellan, Derrick Universi ty of 00:12:00 [place] [facility] POC GLUCOSE SCREEN 2023-02-07 Cortes-Dellan, Derrick Universi ty of 22:43:00 [place] [facility] POC GLUCOSE SCREEN 2023-02-07 Cortes-Dellan, Derrick Universi ty of 18:16:00 [place] [facility] POC GLUCOSE SCREEN 2023-02-07 Cortes-Dellan, Derrick Universi ty of 13:48:00 [place] [facility] BLOODCULTURE 2023-02-07 Patrick [facility] of 11:52:00 [place] [facility] HIV-1/2 ANTIGEN AND 2023-02-07 Thao Romero V. [place] o f ANTIBODIES, FOURTH GENERATION 11:52:[address] [facility] HEPATITIS B SURFACE ANTIGEN, 2023-02-07 Thao Romeor V. Uni versity of SERUM 11:52:00 [place] [facility] HEPATITIS B CORE ANTIBODY 2023-02-07 Thao Romero V. [facility] of 11:52:00 [place] [facility] HEPATITIS C VIRUS ANTIBODY 2023-02-07 Thao Romero V. Unive rsity of 11:52:00 [place] [facility] FERRITIN LVL 2023-02-07 Thao Romero V. [place] of 11:52:00 [place] [facility] TRANSFERRIN 2023-02-07 Thao Romero V. [place] of 11:52:00 [place] [facility] IRON LEVEL 2023-02-07 Thao Romero V. [place] of 11:52:00 [place] [facility] MAGNESIUM LEVEL 2023-02-07 [facility] 11:52:00 [facility] PHOSPHORUS LEVEL 2023-02-07 Mark [place] of 11:52:00 [facility] COMPLETE BLOOD COUNT W/ 2023-02-07 Mark [facility] ty of DIFFERENTIAL 11:52:00 [facility] COMPREHENSIVE METABOLIC PANEL 2023-02-07 Thao Romero V. Un iversity of 11:52:00 [place] [facility] LIPID PANEL 2023-02-07 Thao Romero V. [place] of 11:52:00 [place] [facility] HEMOGLOBIN A1C 2023-02-07 Thao Romero V. [place] of 11:52:00 [place] [facility] GLUCOSE LEVEL 2023-02-07 Thao Romero V. [place] of 11:52:00 [place] [facility] BLOOD UREA NITROGEN 2023-02-07 Thao Romero V. [place] o f 11:52:00 [place] [facility] ELECTROLYTE PANEL 2023-02-07 Thao Romero V. [place] of 11:52:00 [place] [facility] SERUM CREATININE 2023-02-07 Thao Romero V. [place] of 11:52:00 [place] [facility] .GLOMERULAR FILTRATION RATE 2023-02-07 Thao Romero V. [facility] ersity of 11:52:00 [place] [facility] CALCI[facility] TOTAL 2023-02-07 Thao Romero V. [place] o f 11:52:00 [place] [facility] ALBUMIN LEVEL 2023-02-07 Thao Romero V. [place] of 11:52:00 [place] [facility] ALKALINE PHOSPHATASE 2023-02-07 Thao Romero V. [place] of 11:52:00 [place] [facility] ALANINE AMINOTRANSFERASE 2023-02-07 Thao Romero V. [facility] ity of 11:52:00 [place] [facility] ASPARTATE AMINOTRANSFERASE 2023-02-07 Thao Romero V. Unive rsity of 11:52:00 [place] [facility] TOTAL PROTEIN 2023-02-07 Thao Romero V. [facility] 11:52:00 [place] [facility] FRACTIONATED BILIRUBIN 2023-02-07 Thao Romero V. Universit y of 11:52:00 [place] [facility] Results CBC 2023-02-07 [facility] 11:52:00 [facility] MANUAL DIFFERENTIAL 2023-02-07 [facility] o f 11:52:00 [facility] C DIFFICILE DNA ASSAY 2023-02-07 Thao Romero V. [facility] 10:18:00 [place] [facility] C DIFFICILE DNA ASSAY PATH 2023-02-07 Thao Romero V. Unive rsity of REVIEW 10:18:00 [place] [facility] GASTROINTESTINAL MULTIPLEX 2023-02-07 Thao Romero V. Univlacho rsity of PANEL 10:16:00 [place] [facility] GASTROINTESTINAL MULTIPLEX 2023-02-07 Thao Romero V. Univlacho rsity of PANEL PATH REVIEW 10:16:00 [place] Suraj bates [facility] POC GLUCOSE SCREEN 2023-02-07 Thao Romero V. [facility] 03:51:00 [facility] POC GLUCOSE SCREEN 2023-02-07 Thao Romero V. [facility] 00:28:00 [place] [facility] EKG, 12-LEAD (PORTABLE) 2023-02-07 Irina [place] ity of 00:00:00 [place] [facility] POC GLUCOSE SCREEN 2023-02-06 Thao Romero V. [facility] 22:13:00 Bere GRIFFIN [facility] POC GLUCOSE SCREEN 2023-02-06 Thao Romero V. [facility] 19:18:00 Bere GRIFFIN [facility] POC GLUCOSE SCREEN 2023-02-06 Thao Romero V. [facility] 18:26:00 [place] [facility] GENERAL LABORATORY ADD ON 2023-02-06 Thao Romero V. Univ sity of TEST 16:44:00 [place] [facility] BLOODCULTURE 2023-02-06 [facility] 16:11:00 Christsharifa Blackburn MD [facility] POC GLUCOSE SCREEN 2023-02-06 [facility] [place] of 14:46:00 [place] [facility] POC GLUCOSE SCREEN 2023-02-06 Amanda Proctor [place] of 12:40:00 [place] [facility] POC GLUCOSE SCREEN 2023-02-06 [facility] [place] of 08:20:00 [place] [facility] BASIC METABOLIC PANEL, 2023-02-06 Noel Floresit y of CALCIUM TOTAL 08:05:00 [facility] MAGNESIUM LEVEL 2023-02-06 [facility] [facility] 08:05:00 [facility] PHOSPHORUS LEVEL 2023-02-06 [facility] 08:05:00 [facility] COMPLETE BLOOD COUNT W/ 2023-02-06 Noel Floresi ty of DIFFERENTIAL 08:05:00 [facility] GLUCOSE LEVEL 2023-02-06 Cathie Meneses [facility] 08:05:00 [place] [facility] BLOOD UREA NITROGEN 2023-02-06 Cathie Meneses [facility] 08:05:00 [place] [facility] ELECTROLYTE PANEL 2023-02-06 Cathie Meneses [facility] 08:05:00 [place] [facility] SERUM CREATININE 2023-02-06 Cathie Meneses [facility] 08:05:00 [place] [facility] .GLOMERULAR FILTRATION RATE 2023-02-06 Cathie Meneses Uni [facility] of 08:05:00 [place] [facility] CALCIUM LEVEL TOTAL 2023-02-06 Cathie Meneses [facility] 08:05:00 [place] [facility] Results CBC 2023-02-06 Cathie Meneses [facility] 08:05:00 [place] [facility] MANUAL DIFFERENTIAL 2023-02-06 Cathie Meneses [facility] 08:05:00 [place] [facility] NT PRO BNP 2023-02-06 Cathie Meneses [facility] 08:05:00 [place] [facility] PROCALCITONIN 2023-02-[address] [facility] of 08:05:00 [place] [facility] Birminghamevelin olivier [facility] C REACTIVE PROTEIN 2023-02-06 Shayleel [facility] o f 08:05:00 [place] Liane olivier [facility] POC GLUCOSE SCREEN 2023-02-06 Amanda Proctor of 06:17:00 [place] Liane olivier [facility] TROPONIN T 2023-02-06 [facility] of 06:09:00 [place] Liane olivier [facility] URINE CULTURE 2023-02-06 [facility] of 05:40:00 [place] [facility] Birminghamevelin olivier [facility] PROTHROMBIN TIME 2023-02-06 [facility] of 01:26:00 [place] Liane olivier [facility] APTT 2023-02-06 [facility] of 01:26:00 [place] [facility] Birminghamevelin olivier [facility] D DIMER 2023-02-06 [facility] of 01:26:00 [place] Rob [facility] LACTIC ACID, VENOUS 2023-02-06 [facility] o f 01:26:00 [place] Liane olivier [facility] XR ABDOMEN AP 2023-02-05 Amanda Proctor [place] of 23:59:27 [place] [facility] Birminghamevelin [facility] XR CHEST 1 VW 2023-02-05 Amanda Proctor [place] of 23:57:49 [place] [facility] COVID-19 (SARS-COV-2) 2023-02-05 Amanda Proctor of ASYMPTOMATIC-LT 22:09:00 [place] Rob [facility] POC GLUCOSE SCREEN 2023-02-05 [facility] of 21:27:00 [place] Liane olivier [facility] BLOODCULTURE 2023-02-05 Amanda Proctor of 20:39:00 Bere olivier [facility] BLOODCULTURE 2023-02-05 Amanda Proctor of 20:30:00 [place] [facility] Birminghamevelin [facility] COMPLETE BLOOD COUNT W/ 2023-02-05 Amanda Proctor ty of DIFFERENTIAL 20:30:00 [place] Rob [facility] MAGNESIUM LEVEL 2023-02-05 Amanda Proctor of 20:30:00 [place] Liane olivier [facility] PHOSPHORUS LEVEL 2023-02-05 Amanda Proctor of 20:30:00 [place] Liane olivier [facility] NT PRO BNP 2023-02-05 Stevos, Amanda Haq of 20:30:00 [place] Liane olivier [facility] TROPONIN T 2023-02-05 Stevos, Amanda Haq of 20:30:00 [place] [facility] Birminghamevelin olivier [facility] CREATINE KINASE 2023-02-05 Stevos, Amanda Haq of 20:30:00 [place] Liane olivier [facility] CKMB 2023-02-05 [facility], Amanda Haq of 20:30:00 [place] [facility] [place] soy [facility] C REACTIVE PROTEIN 2023-02-05 [facility], Amanda Haq of 20:30:00 [place] [facility] COMPREHENSIVE METABOLIC PANEL 2023-02-05 Esthela, Amanda iversity of 20:30:00 [place] Carreon soy [facility] PROCALCITONIN 2023-02-05 Esthela, Amanda Haq of 20:30:00 [place] Liane olivier [facility] AMYLASE LEVEL 2023-02-05 Stevos, Amanda Haq of 20:30:00 [place] [facility] [place] soy [facility] LIPASE LEVEL 2023-02-05 [facility], Amanda aHq of 20:30:00 [place] Liane olivier [facility] Results CBC 2023-02-05 Esthela, Amanda Haq of 20:30:00 [place] Liane olivier [facility] MANUAL DIFFERENTIAL 2023-02-05 Amanda Proctor o f 20:30:00 [place] Liane olivier [facility] GLUCOSE LEVEL 2023-02-05 Amanda Proctor of 20:30:00 [place] [facility] BLOOD UREA NITROGEN 2023-02-05 Amanda Proctor o f 20:30:00 [place] Liane olivier [facility] ELECTROLYTE PANEL 2023-02-05 Esthela, Amanda Haq of 20:30:00 [place] Liane oliiver [facility] SERUM CREATININE 2023-02-05 Stevos, Amanda Haq of 20:30:00 [place] [facility] .GLOMERULAR FILTRATION RATE 2023-02-05 Amanda Proctor ersity of 20:30:00 [place] [facility] CALCIUM LEVEL TOTAL 2023-02-05 Amanda Proctor [place] o f 20:30:00 [place] Liane olivier [facility] ALBUMIN LEVEL 2023-02-05 Esthela, Amanda [place] of 20:30:00 [place] Liane olivier [facility] ALKALINE PHOSPHATASE 2023-02-05 [facility] Amanda [place] of 20:30:00 [place] Liane olivier [facility] ALANINE AMINOTRANSFERASE 2023-02-05 [facility] pierce [facility] ity of 20:30:00 [place] Rob [facility] ASPARTATE AMINOTRANSFERASE 2023-02-05 [facility] Amanda [facility] rs[facility] of 20:30:00 [place] Liane olivier [facility] TOTAL PROTEIN 2023-02-05 [facility] pierce [place] of 20:30:00 [place] Liane olivier [facility] FRACTIONATED BILIRUBIN 2023-02-05 Esthela, Amnada [facility] of 20:30:00 [place] Liane olivier [facility] URINALYSIS MICROSCOPIC 2023-02-05 Irina [facility] ty of 05:39:00 [place] Liane olivier [facility] EKG, 12-LEAD (PORTABLE) 2023-02-05 Amanda Proctor [facility] ty of 00:00:00 [place] [facility] COMPREHENSIVE METABOLIC PANEL 2023-02-04 Dee LoriVaibhav lopez [place] of 17:33:52 Bere olivier [facility] COMPLETE BLOOD COUNT W/ 2023-02-04 Vaibhav Rosario rsity of DIFFERENTIAL 17:33:52 Bere olivier [facility] MAGNESIUM LEVEL 2023-02-04 [facility] LoriVaibhav lopez [place] of 17:33:52 Bere olivier [facility] PHOSPHORUS LEVEL 2023-02-04 [facility] HaydenVaibhav lopez [place] o f 17:33:52 Bere olivier [facility] GLUCOSE LEVEL 2023-02-04 [facility] HaydenVaibhav lopez [place] of 17:33:52 Bere Rob [facility] BLOOD UREA NITROGEN 2023-02-04 Vaibhav Rosario [facility] y of 17:33:52 Bere olivier [facility] ELECTROLYTE PANEL 2023-02-04 Vaibhav Rosario [place] of 17:33:52 Bere olivier [facility] SERUM CREATININE 2023-02-04 Dee Power [facility] o f 17:33:52 Bere olivier [facility] .GLOMERULAR FILTRATION RATE 2023-02-04 Vaibhav Rosario U niversity of 17:33:52 Bere olivier [facility] CALCIUM LEVEL TOTAL 2023-02-04 Vaibhav Rosario [facility] of 17:33:52 Bere olivier [facility] ALBUMIN LEVEL 2023-02-04 Vaibhav Rosario [place] of 17:33:52 Bere olivier [facility] ALKALINE PHOSPHATASE 2023-02-04 Dee Lori, [facility] ty of 17:33:52 Bere olivier [facility] ALANINE AMINOTRANSFERASE 2023-02-04 [facility] ersity of 17:33:52 Bere olivier [facility] ASPARTATE AMINOTRANSFERASE 2023-02-04 [facility] Center[facility]ibhav lopez iversity of 17:33:52 Bere olivier [facility] TOTAL PROTEIN 2023-02-04 [facility] of 17:33:52 Bere olivier [facility] FRACTIONATED BILIRUBIN 2023-02-04 [facility] sity of 17:33:52 [facility] Results CBC 2023-02-04 [facility] Campus[facility]ibhav lopez [place] of 17:33:52 [facility] MANUAL DIFFERENTIAL 2023-02-04 [facility] Vaibhav Power [facility] of 17:33:52 eBre [facility] POC GLUCOSE SCREEN 2023-02-01 Simbaqueba Saurabh, Universit y of 18:19:00 Elian [facility] POC GLUCOSE SCREEN 2023-02-01 Simbaqueba Saurabh, Universit y of 12:47:00 Elian olivier [facility] BASIC METABOLIC PANEL, 2023-02-01 Nabeel, [facility] y of CALCIUM TOTAL 09:00:00 Bere olivier [facility] MAGNESIUM LEVEL 2023-02-01 Nabeel, [facility] of 09:00:00 Bere olivier [facility] PHOSPHORUS LEVEL 2023-02-01 Nabeel, [facility] of 09:00:00 Bere olivier [facility] COMPLETE BLOOD COUNT W/ 2023-02-01 [facility] ty of DIFFERENTIAL 09:00:00 [place] Liane olivier [facility] GLUCOSE LEVEL 2023-02-01 [facility] of 09:00:00 [place] Liane olivier [facility] BLOOD UREA NITROGEN 2023-02-01 [facility] o f 09:00:00 [place] Liane olivier [facility] ELECTROLYTE PANEL 2023-02-01 [facility] of 09:00:00 [place] Liane olivier [facility] SERUM CREATININE 2023-02-01 [facility] of 09:00:00 [place] [facility] Birming[facility]velin [facility] .GLOMERULAR FILTRATION RATE 2023-02-01 [facility] ersity of 09:00:00 [place] Liane olivier [facility] CALCIUM LEVEL TOTAL 2023-02-01 [facility] o f 09:00:00 [place] MD Liane olivier [facility] Results CBC 2023-02-01 [facility] of 09:00:00 [place] MD Liane olivier [facility] MANUAL DIFFERENTIAL 2023-02-01 [facility] o f 09:00:00 [place] MD Liane olivier [facility] Center POC GLUCOSE SCREEN 2023-02-01 Simbaqueba Saurabh, Universit y of 02:36:00 Elian olivier [facility] Center POC GLUCOSE SCREEN 2023-01-31 Simbaqueba Saurabh, Universit y of 21:55:00 Elian olivier [facility] Center POC GLUCOSE SCREEN 2023-01-31 Simbaqueba Saurabh, Universit y of 17:13:00 Elian olivier [facility] Center POC GLUCOSE SCREEN 2023-01-31 Simbaqueba Saurabh, Universit y of 13:08:00 Elian olivier [facility] BASIC METABOLIC PANEL, 2023-01-31 [facility] y of CALCIUM TOTAL 08:15:00 [place] Liane olivier [facility] MAGNESIUM LEVEL 2023-01-31 [facility] of 08:15:00 [place] Liane olivier [facility] PHOSPHORUS LEVEL 2023-01-31 [facility] of 08:15:00 [place] Liane olivier [facility] COMPLETE BLOOD COUNT W/ 2023-01-31 [facility] ty of DIFFERENTIAL 08:15:00 [place] Liane olivier [facility] GLUCOSE LEVEL 2023-01-31 [facility] of 08:15:00 [place] Liane olivier [facility] BLOOD UREA NITROGEN 2023-01-31 [facility] o f 08:15:00 [place] Liane olivier [facility] ELECTROLYTE PANEL 2023-01-31 [facility] of 08:15:00 [place] Liane olivier [facility] SERUM CREATININE 2023-01-31 [facility] of 08:15:00 [place] [facility] .GLOMERULAR FILTRATION RATE 2023-01-31 [facility] ersity of 08:15:00 [place] Liane olivier [facility] CALCIUM LEVEL TOTAL 2023-01-31 [facility] o f 08:15:00 [place] Liane olivier [facility] Results CBC 2023-01-31 [facility] of 08:15:00 [place] Liane olivier [facility] MANUAL DIFFERENTIAL 2023-01-31 [facility] o f 08:15:00 [place] Liane olivier [facility] Center POC GLUCOSE SCREEN 2023-01-31 Simbaqueba Saurabh, Universit y of 02:23:00 Elian olivier [facility] Center POC GLUCOSE SCREEN 2023-01-30 Simbaqueba Saurabh, Universit y of 22:38:00 Elian olivier [facility] Center POC GLUCOSE SCREEN 2023-01-30 Simbaqueba Saurabh, Universit y of 17:51:00 Elian olivier [facility] Center POC GLUCOSE SCREEN 2023-01-30 Simbaqueba Saurabh, Universit y of 14:45:00 Eliansuzi olivier [facility] BASIC METABOLIC PANEL, 2023-01-30 [facility] y of CALCIUM TOTAL 08:14:00 [place] Liane olivier [facility] MAGNESIUM LEVEL 2023-01-30 [facility] of 08:14:00 [place] Liane olivier [facility] PHOSPHORUS LEVEL 2023-01-30 [facility] of 08:14:00 [place] Liane olivier [facility] COMPLETE BLOOD COUNT W/ 2023-01-30 [facility] ty of DIFFERENTIAL 08:14:00 [place] Liane olivier [facility] GLUCOSE LEVEL 2023-01-30 [facility] of 08:14:00 [place] Liane olivier [facility] BLOOD UREA NITROGEN 2023-01-30 [facility] o f 08:14:00 [place] Liane olivier [facility] ELECTROLYTE PANEL 2023-01-30 [facility] of 08:14:00 [place] Liane olivier [facility] SERUM CREATININE 2023-01-30 [facility] of 08:14:00 [place] [facility] Birminghamevelin olivier [facility] .GLOMERULAR FILTRATION RATE 2023-01-30 [facility] ersity of 08:14:00 [place] Liane olivier [facility] CALCIUM LEVEL TOTAL 2023-01-30 [facility] o f 08:14:00 [place] Liane olivier [facility] Results CBC 2023-01-30 [facility] of 08:14:00 [place] Liane olivier [facility] MANUAL DIFFERENTIAL 2023-01-30 [facility] o f 08:14:00 [place] Liane olivier [facility] POC GLUCOSE SCREEN 2023-01-30 Kt Deshpande Universit y of 02:40:00 Elian Rob [facility] POC GLUCOSE SCREEN 2023-01-30 Kt Deshpande Universit y of 00:24:00 Elian olivier [facility] POC GLUCOSE SCREEN 2023-01-29 Simbaradha Deshpande Universit y of 22:51:00 Elian olivier [facility] VERIFY CATHETER TIP PLACEMENT 2023-01-29 Justo Banuelos [place] of 20:08:01 Bere olivier [facility] XR CHEST 1 VW POST IMPLANT 2023-01-29 Erich Oneal niversity of 19:59:15 Elian Rob [facility] INSERT VASCULAR ACCESS DEVICE 2023-01-29 Eun Oneal of 19:04:31 Elian olivier [facility] POC GLUCOSE SCREEN 2023-01-29 Kt Fentono, Universit y of 19:04:00 [facility] POC GLUCOSE SCREEN 2023-01-29 Simbaradha Deshpande, Universit y of 13:50:00 [facility] BASIC METABOLIC PANEL, 2023-01-29 [facility] y of CALCIUM TOTAL 08:33:00 [place] Linae olivier [facility] MAGNESIUM LEVEL 2023-01-29 [facility] of 08:33:00 [place] [facility] Birminghamevelin olivier [facility] PHOSPHORUS LEVEL 2023-01-29 [facility] of 08:33:00 [place] [facility] COMPLETE BLOOD COUNT W/ 2023-01-29 [facility] ty of DIFFERENTIAL 08:33:00 [place] Liane olivier [facility] GLUCOSE LEVEL 2023-01-29 [facility] of 08:33:00 [place] [facility] BLOOD UREA NITROGEN 2023-01-29 [facility] o f 08:33:00 [place] Liane olivier [facility] ELECTROLYTE PANEL 2023-01-29 [facility] of 08:33:00 [place] [facility] SERUM CREATININE 2023-01-29 [facility] of 08:33:00 [place] [facility] .GLOMERULAR FILTRATION RATE 2023-01-29 [facility] ersity of 08:33:00 [place] Liane olivier [facility] CALCIUM LEVEL TOTAL 2023-01-29 [facility] o f 08:33:00 Bere olivier [facility] Results CBC 2023-01-29 [facility] of 08:33:00 [place] Liane olivier [facility] MANUAL DIFFERENTIAL 2023-01-29 [facility] o f 08:33:00 Bere olivier [facility] Center POC GLUCOSE SCREEN 2023-01-29 Simbaradha Deshpande, Universit y of 03:21:00 [facility] POC GLUCOSE SCREEN 2023-01-28 Simbaradha Deshpande, Universit y of 23:27:00 [facility] POC GLUCOSE SCREEN 2023-01-28 Simbaradha Ervinijo, Universit y of 17:57:00 Elian [place] Liane olivier [facility] POC GLUCOSE SCREEN 2023-01-28 Simmarisa Ervinijo, Universit y of 15:38:00 Elian [place] Liane olivier [facility] HEMOGLOBIN 2023-01-28 [facility] of 13:24:00 [place] Liane olivier [facility] HEMATOCRIT 2023-01-28 [facility] of 13:24:00 [place] Liane olivier [facility] POC GLUCOSE SCREEN 2023-01-28 Kt Ervinijo, Universit y of 13:17:00 [facility] MD Liane olivier [facility] HEMOGLOBIN 2023-01-28 [facility] of 08:00:00 [place] Liane olivier [facility] HEMATOCRIT 2023-01-28 [facility] of 08:00:00 [place] Carreon soy [facility] BASIC METABOLIC PANEL, 2023-01-28 [facility] y of CALCIUM TOTAL 08:00:00 [place] Liane olivier [facility] MAGNESIUM LEVEL 2023-01-28 [facility] of 08:00:00 [place] [facility] PHOSPHORUS LEVEL 2023-01-28 [facility] of 08:00:00 [place] Liane olivier [facility] COMPLETE BLOOD COUNT W/ 2023-01-28 [facility] ty of DIFFERENTIAL 08:00:00 [place] Liane olivier [facility] GLUCOSE LEVEL 2023-01-28 [facility] of 08:00:00 [place] Liane olivier [facility] BLOOD UREA NITROGEN 2023-01-28 [facility] o f 08:00:00 [place] Liane olivier [facility] ELECTROLYTE PANEL 2023-01-28 [facility] of 08:00:00 [place] MD Rob [facility] SERUM CREATININE 2023-01-28 [facility] of 08:00:00 [place] MD Rob [facility] .GLOMERULAR FILTRATION RATE 2023-01-28 [facility] ersity of 08:00:00 [place] MD Liane olivier [facility] CALCIUM LEVEL TOTAL 2023-01-28 Nabeel, [facility] o f 08:00:00 [place] MD Liane olivier [facility] Results CBC 2023-01-28 [facility] of 08:00:00 [place] Liane olivier [facility] MANUAL DIFFERENTIAL 2023-01-28 [facility] o f 08:00:00 [place] Liane olivier [facility] Center POC GLUCOSE SCREEN 2023-01-28 [facility] 03:34:00 Jaycee [place] Liane olivier [facility] Center POC GLUCOSE SCREEN 2023-01-28 [facility] 00:42:00 Jaycee [place] Liane olivier [facility] HEMOGLOBIN 2023-01-27 [facility] 21:15:00 [place] Liane olivier [facility] HEMATOCRIT 2023-01-27 [facility] of 21:15:00 [place] Liane olivier [facility] Center POC GLUCOSE SCREEN 2023-01-27 [facility] 19:38:00 Jaycee [place] Carreon soy [facility] POC GLUCOSE SCREEN 2023-01-27 [facility] of 16:11:00 [place] Liane olivier [facility] Center POC GLUCOSE SCREEN 2023-01-27 [facility] [place] of 13:43:00 [place] Carreon soy [facility] BASIC METABOLIC PANEL, 2023-01-27 [facility] y of CALCIUM TOTAL 07:48:00 [place] Liane olivier [facility] MAGNESIUM LEVEL 2023-01-27 [facility] of 07:48:00 [place] Carreon soy [facility] PHOSPHORUS LEVEL 2023-01-27 [facility] of 07:48:00 [place] Liane olivier [facility] COMPLETE BLOOD COUNT W/ 2023-01-27 [facility] ty of DIFFERENTIAL 07:48:00 [place] Liane olivier [facility] GLUCOSE LEVEL 2023-01-27 [facility] of 07:48:00 [place] Liane olivier [facility] BLOOD UREA NITROGEN 2023-01-27 [facility] o f 07:48:00 [place] Liane olivier [facility] ELECTROLYTE PANEL 2023-01-27 [facility] of 07:48:00 [place] Liane olivier [facility] SERUM CREATININE 2023-01-27 [facility] of 07:48:00 [place] Liane olivier [facility] .GLOMERULAR FILTRATION RATE 2023-01-27 [facility] ersity of 07:48:00 [place] Liane olivier [facility] CALCIUM LEVEL TOTAL 2023-01-27 [facility] o f 07:48:00 [place] [facility] Results CBC 2023-01-27 [facility] of 07:48:00 [place] MD Rob [facility] MANUAL DIFFERENTIAL 2023-01-27 [facility] o f 07:48:00 [place] [facility] POC GLUCOSE SCREEN 2023-01-27 [facility] of 04:16:00 [place] Rob [facility] URINE CULTURE 2023-01-27 Amanda Proctor [place] of 03:45:00 [place] [facility] URINALYSIS WITH MICROSCOPIC 2023-01-27 Amanda Proctor [facility] ersity of IF INDICATED 03:45:00 [place] MD Carreon soy [facility] URINALYSIS MICROSCOPIC EXAM 2023-01-27 Amanda Proctor [facility] ersity of 03:45:00 [place] [facility] POC GLUCOSE SCREEN 2023-01-27 [facility] of 00:34:00 [place] [facility] POC GLUCOSE SCREEN 2023-01-26 [facility] of 22:30:00 [place] [facility] COVID-19 (SARS-COV-2) 2023-01-26 Amanda Proctor of ASYMPTOMATIC-LT 21:34:00 Bere olivier [facility] BLOODCULTURE 2023-01-26 Amanda Proctor of 19:44:00 [place] MD Rob [facility] COMPLETE BLOOD COUNT W/ 2023-01-26 Amanda Proctor ty of DIFFERENTIAL 19:44:00 Bere olivier [facility] MAGNESIUM LEVEL 2023-01-26 Amanda Proctor of 19:44:00 [place] Liane olivier [facility] PHOSPHORUS LEVEL 2023-01-26 Amanda Proctor of 19:44:00 [place] Rob [facility] FRACTIONATED BILIRUBIN 2023-01-26 Amanda Proctorit y of 19:44:00 Bere olivier [facility] AMYLASE LEVEL 2023-01-26 Amanda Proctor of 19:44:00 Bere olivier [facility] LIPASE LEVEL 2023-01-26 Amanda Proctor of 19:44:00 [place] Liane olivier [facility] LACTATE DEHYDROGENASE 2023-01-26 Amanda Proctor of 19:44:00 Bere olivier [facility] C REACTIVE PROTEIN 2023-01-26 Amanda Proctor of 19:44:00 [place] Liane olivier [facility] COMPREHENSIVE METABOLIC PANEL 2023-01-26 Amanda Proctor iversity of 19:44:00 [place] Liane olivier [facility] PROCALCITONIN 2023-01-26 Amanda Proctor of 19:44:00 [place] Liane olivier [facility] Results CBC 2023-01-26 Amanda Proctor of 19:44:00 [place] Liane olivier [facility] MANUAL DIFFERENTIAL 2023-01-26 Amanda Proctor o f 19:44:00 Bere olivier [facility] GLUCOSE LEVEL 2023-01-26 Amanda Proctor of 19:44:00 [place] Liane olivier [facility] BLOOD UREA NITROGEN 2023-01-26 Amanda Proctor o f 19:44:00 Bere olivier [facility] ELECTROLYTE PANEL 2023-01-26 Amanda Proctor of 19:44:00 [place] Liane olivier [facility] SERUM CREATININE 2023-01-26 Amanda Proctor of 19:44:00 [place] MD Liane olivier [facility] .GLOMERULAR FILTRATION RATE 2023-01-26 Amanda Proctor ersity of 19:44:00 Bere olivier [facility] CALCIUM LEVEL TOTAL 2023-01-26 Amanda Proctor o f 19:44:00 Bere olivier [facility] ALBUMIN LEVEL 2023-01-26 Amanda Proctor of 19:44:00 [place] Liane olivier [facility] ALKALINE PHOSPHATASE 2023-01-26 Amanda Proctor of 19:44:00 Bere olivier [facility] ALANINE AMINOTRANSFERASE 2023-01-26 Amanda Proctor [facility] ity of 19:44:00 [place] [facility] ASPARTATE AMINOTRANSFERASE 2023-01-[address] [facility] rsity of 19:44:00 [place] MD Rob [facility] TOTAL PROTEIN 2023-01-26 Amanda Proctor [place] of 19:44:00 [place] [facility] COMPREHENSIVE METABOLIC PANEL 2023-01-20 Lorena Hdez [place] of 17:53:46 Bere GRIFFIN [facility] COMPLETE BLOOD COUNT W/ 2023-01-20 Lorena Hdez [facility] versity of DIFFERENTIAL 17:53:46 [facility] MAGNESIUM LEVEL 2023-01-20 Lorena Hdez [place] of 17:53:46 Bere Rob [facility] PHOSPHORUS LEVEL 2023-01-20 Lorena Hdez [place] of 17:53:46 [place] Rob [facility] GLUCOSE LEVEL 2023-01-20 Lorena Hdez [place] of 17:53:46 Bere Rob [facility] BLOOD UREA NITROGEN 2023-01-20 Lorena Hdez [facility] ity of 17:53:46 [place] [facility] ELECTROLYTE PANEL 2023-01-20 Lorena Hdez [facility] 17:53:46 Bere Rob [facility] SERUM CREATININE 2023-01-20 Lorena Hdez [place] of 17:53:46 [place] [facility] .GLOMERULAR FILTRATION RATE 2023-01-20 Lorena Hedz [place] of 17:53:46 Bere olivier [facility] CALCIUM LEVEL TOTAL 2023-01-20 Lorena Hdez [facility] ity of 17:53:46 Bere GRIFFIN [facility] ALBUMIN LEVEL 2023-01-20 Lorena Hdez [place] of 17:53:46 Bere GRIFFIN [facility] ALKALINE PHOSPHATASE 2023-01-20 Lorena Hdez [facility] sity of 17:53:46 Bere GRIFFIN [facility] ALANINE AMINOTRANSFERASE 2023-01-20 Lorena Hdez iversity of 17:53:46 Bere GRIFFIN [facility] ASPARTATE AMINOTRANSFERASE 2023-01-20 Lorena Hdez [place] of 17:53:46 [place] [facility] TOTAL PROTEIN 2023-01-20 [facility] 17:53:46 [place] [facility] FRACTIONATED BILIRUBIN 2023-01-20 [facility] ersity of 17:53:46 [place] [facility]irm[facility]in olivier [facility] Results CBC 2023-01-20 Simona Hdezfer [facility] of 17:53:46 [place] [facility] MANUAL DIFFERENTIAL 2023-01-20 [facility] of 17:53:46 [place] [facility] POC URINE DRUG SCREEN PANEL, 2023-01-20 [facility], [facility] versity of QUALITATIVE 17:37:00 [facility] [place] MD [facility] CONTROLLED SUBSTANCE 2023-01-20 [facility] URINE 17:37:00 [facility] TETRAHYDROCANNABINOL 2023-01-20 [facility], [facility] UR 17:37:[address] [facility] POC GLUCOSE SCREEN 2023-01-18 [facility] of 18:10:00 [place] [facility] POC GLUCOSE SCREEN 2023-01-18 [facility] of 12:46:00 [place] [facility] BASIC METABOLIC PANEL, 2023-01-18 Ankit Lockee rsity of CALCIUM TOTAL 09:03:00 Bere olivier [facility] MAGNESIUM LEVEL 2023-01-18 Ankit Locke o f 09:03:00 [place] [facility] olivier [facility] PHOSPHORUS LEVEL 2023-01-18 Ankit Locke [place] of 09:03:00 [place] [facility] COMPLETE BLOOD COUNT W/ 2023-01-18 Ankit Locke ersity of DIFFERENTIAL 09:03:00 [place] Liane olivier [facility] GLUCOSE LEVEL 2023-01-18 Ankit Locke o f 09:03:00 [place] Rob [facility] BLOOD UREA NITROGEN 2023-01-18 Ankit Locke [facility] ty of 09:03:00 Bere [facility] ELECTROLYTE PANEL 2023-01-18 Ankit Locke [place] of 09:03:00 [place] [facility] SERUM CREATININE 2023-01-18 Ankit Locke [place] of 09:03:00 [place] [facility] .GLOMERULAR FILTRATION RATE 2023-01-18 Ankit Locke of 09:03:00 [place] [facility] CALCIUM LEVEL TOTAL 2023-01-18 Ankit Locke [facility] ty of 09:03:00 [place] [facility] Results CBC 2023-01-18 Ankit Locke [place] o f 09:03:00 [place] [facility] MANUAL DIFFERENTIAL 2023-01-18 Ankit Locke [facility] ty of 09:03:00 [place] [facility] POC GLUCOSE SCREEN 2023-01-18 [facility] of 02:33:00 [place] [facility] POC GLUCOSE SCREEN 2023-01-17 [facility] of 23:22:00 [place] [facility] POC GLUCOSE SCREEN 2023-01-17 [facility] of 17:43:00 [place] [facility] POC GLUCOSE SCREEN 2023-01-17 [facility] of 13:58:00 [place] [facility] BASIC METABOLIC PANEL, 2023-01-17 [facility] CALCIUM TOTAL 09:31:00 [place] [facility] MAGNESIUM LEVEL 2023-01-17 Ankit Locke [place] f 09:31:00 [place] [facility] PHOSPHORUS LEVEL 2023-01-17 Ankit Locke [place] of 09:31:00 [place] [facility] COMPLETE BLOOD COUNT W/ 2023-01-17 Ankit Locke [facility] ersity of DIFFERENTIAL 09:31:00 [place] [facility] GLUCOSE LEVEL 2023-01-17 Ankit Locke o f 09:31:00 [place] [facility] BLOOD UREA NITROGEN 2023-01-17 Ankit Locke [facility] of 09:31:00 [place] Carreon soy [facility] ELECTROLYTE PANEL 2023-01-17 Ankit Locke [place] of 09:31:00 [place] [facility] SERUM CREATININE 2023-01-17 Ankit Locke [place] of 09:31:00 [place] [facility] .GLOMERULAR FILTRATION RATE 2023-01-17 Ankit Locke [place] of 09:31:00 [place] [facility] CALCIUM LEVEL TOTAL 2023-01-17 Ankit Locke [facility] ty of 09:31:00 [place] [facility] Results CBC 2023-01-17 Ankit Locke [place] f 09:31:00 [place] [facility] MANUAL DIFFERENTIAL 2023-01-17 Ankit Locke [facility] ty of 09:31:00 [place] [facility] POC GLUCOSE SCREEN 2023-01-17 [facility] of 01:43:00 [place] [facility] POC GLUCOSE SCREEN 2023-01-16 [facility] of 22:16:00 [place] [facility] POC GLUCOSE SCREEN 2023-01-16 [facility] of 17:25:00 [place] [facility] POC GLUCOSE SCREEN 2023-01-16 [facility] of 14:01:00 [place] [facility] BASIC METABOLIC PANEL, 2023-01-16 Ankit Locke [facility] CALCIUM TOTAL 11:22:00 [place] [facility] MAGNESIUM LEVEL 2023-01-16 Ankit Locke [place] o f 11:22:00 [place] [facility] PHOSPHORUS LEVEL 2023-01-16 Ankit Locke [place] of 11:22:00 [place] [facility] COMPLETE BLOOD COUNT W/ 2023-01-16 Ankit Locke [facility] ersity of DIFFERENTIAL 11:22:00 [place] [facility] GLUCOSE LEVEL 2023-01-16 Ankit Locke [place] o f 11:22:00 [place] [facility] soy [facility] BLOOD UREA NITROGEN 2023-01-16 Ankit Locke [facility] ty of 11:22:00 [place] [facility] ELECTROLYTE PANEL 2023-01-16 Ankit Locke [place] of 11:22:00 [place] [facility] SERUM CREATININE 2023-01-16 Ankit Locke [place] of 11:22:00 [place] [facility] .GLOMERULAR FILTRATION RATE 2023-01-16 Ankit Locke [place] of 11:22:00 [place] [facility] CALCIUM LEVEL TOTAL 2023-01-16 Ankit Locke [facility] ty of 11:22:00 [place] [facility] Results CBC 2023-01-16 Ankit Locke [place] f 11:22:00 [place] [facility] MANUAL DIFFERENTIAL 2023-01-16 Ankit Locke [facility] ty of 11:22:00 [place] [facility] POC GLUCOSE SCREEN 2023-01-16 [facility] of 01:34:00 [place] [facility] POC GLUCOSE SCREEN 2023-01-15 [facility] of 23:29:00 [place] [facility] POC GLUCOSE SCREEN 2023-01-15 [facility] of 18:11:00 [place] [facility] POC GLUCOSE SCREEN 2023-01-15 [facility] of 13:12:00 [place] [facility] BASIC METABOLIC PANEL, 2023-01-15 Ankit Locke [facility] CALCIUM TOTAL 07:23:00 [place] [facility] MAGNESIUM LEVEL 2023-01-15 Ankit Locke o f 07:23:00 [place] [facility] PHOSPHORUS LEVEL 2023-01-15 Ankit Locke [place] of 07:23:00 [place] [facility] COMPLETE BLOOD COUNT W/ 2023-01-15 Ankit Locke [facility] ersity of DIFFERENTIAL 07:23:00 [place] [facility] GLUCOSE LEVEL 2023-01-15 Ankit Locke [place] o f 07:23:00 [place] Liane olivier [facility] BLOOD UREA NITROGEN 2023-01-15 Ankit Locke [facility] ty of 07:23:00 [place] Liane olivier [facility] ELECTROLYTE PANEL 2023-01-15 Ankit Locke [place] of 07:23:00 [place] Liane olivier [facility] SERUM CREATININE 2023-01-15 Ankit Locke [place] 07:23:00 [place] [facility] olivier [facility] .GLOMERULAR FILTRATION RATE 2023-01-15 Ankit Locke [place] of 07:23:00 [place] Liane olivier [facility] CALCIUM LEVEL TOTAL 2023-01-15 Ankit Locke [facility] ty of 07:23:00 [place] Liane olivier [facility] Results CBC 2023-01-15 Ankit Locke [place] f 07:23:00 [place] Liane olivier [facility] MANUAL DIFFERENTIAL 2023-01-15 Ankit Locke [facility] ty of 07:23:00 [place] Liane olivier [facility] POC GLUCOSE SCREEN 2023-01-15 [facility] of 03:18:00 [place] Carreon soy [facility] POC GLUCOSE SCREEN 2023-01-15 [facility] of 00:17:00 [place] [facility] POC GLUCOSE SCREEN 2023-01-14 [facility] of 19:43:00 [place] Liane olivier [facility] Center POC GLUCOSE SCREEN 2023-01-14 [facility] 14:54:00 [place] [facility] GLUCOSE SCREEN 2023-01-14 [facility] of 12:55:00 [place] [facility] Birm[facility]in olivier [facility] BASIC METABOLIC PANEL, 2023-01-14 Ankit Locke [facility] CALCIUM TOTAL 08:31:00 [place] Liane olivier [facility] MAGNESIUM LEVEL 2023-01-14 Ankit Locke [place] f 08:31:00 [place] Liane olivier [facility] PHOSPHORUS LEVEL 2023-01-14 Ankit Locke [place] of 08:31:00 [place] MD [facility] COMPLETE BLOOD COUNT W/ 2023-01-14 Ankit Locke [facility] ersity of DIFFERENTIAL 08:31:00 [place] Liane olivier [facility] GLUCOSE LEVEL 2023-01-14 Ankit Locke o f 08:31:00 [place] [facility] BLOOD UREA NITROGEN 2023-01-14 Ankit Locke [facility] 08:31:00 [place] [facility] ELECTROLYTE PANEL 2023-01-14 Ankit Locke [place] of 08:31:00 [place] [facility] SERUM CREATININE 2023-01-14 Ankit Locke [place] of 08:31:00 [place] [facility] .GLOMERULAR FILTRATION RATE 2023-01-14 Ankit Locke [place] of 08:31:00 [place] [facility] CALCIUM LEVEL TOTAL 2023-01-14 Ankit Locke [facility] 08:31:00 [place] [facility] Results CBC 2023-01-14 Ankit Locke o f 08:31:00 [place] [facility] MANUAL DIFFERENTIAL 2023-01-14 Ankit Locke [facility] ty of 08:31:00 [place] [facility] POC GLUCOSE SCREEN 2023-01-14 [facility] of 03:05:00 [place] [facility] POC GLUCOSE SCREEN 2023-01-13 [facility] of 23:08:00 [place] [facility] POC GLUCOSE SCREEN 2023-01-13 [facility] of 18:04:00 [place] [facility] POC GLUCOSE SCREEN 2023-01-13 [facility] of 16:39:00 [place] [facility] POC GLUCOSE SCREEN 2023-01-13 [facility] of 14:36:00 [place] [facility] POC GLUCOSE SCREEN 2023-01-13 [facility] of 12:31:00 [place] [facility] BASIC METABOLIC PANEL, 2023-01-[address] [facility] rsity of CALCIUM TOTAL 07:55:00 [place] [facility] MAGNESI[facility] L[facility] 2023-01-13 Ankit Locke [place] o f 07:55:00 [place] Liane olivier [facility] PHOSPHORUS LEVEL 2023-01-13 Ankit Locke [place] of 07:55:00 [place] [facility] COMPLETE BLOOD COUNT W/ 2023-01-13 Ankit Locke [facility] ersity of DIFFERENTIAL 07:55:00 [place] [facility] GLUCOSE LEVEL 2023-01-13 Irina Houston [place] of 07:55:00 [place] [facility] BLOOD UREA NITROGEN 2023-01-13 Irina Houston [facility] 07:55:00 [place] [facility] ELECTROLYTE PANEL 2023-01-13 Irina Houston [facility] 07:55:00 [place] [facility] SERUM CREATININE 2023-01-13 Irina Houston [facility] 07:55:00 [place] [facility] .GLOMERULAR FILTRATION RATE 2023-01-13 Irina Houston Uni versity of 07:55:00 [place] [facility] CALCIUM LEVEL TOTAL 2023-01-13 Irina Houston [facility] 07:55:00 [place] [facility] Results CBC 2023-01-13 Irina Houston [facility] 07:55:00 [place] [facility] MANUAL DIFFERENTIAL 2023-01-13 Irina Houston [facility] 07:55:00 [place] [facility] POC GLUCOSE SCREEN 2023-01-13 [facility] 03:31:00 [place] [facility] POC GLUCOSE SCREEN 2023-01-13 [facility] 00:05:00 [place] [facility] POC GLUCOSE SCREEN 2023-01-12 [facility] 18:51:00 [place] [facility] POC GLUCOSE SCREEN 2023-01-12 [facility] 18:00:00 [place] [facility] POC GLUCOSE SCREEN 2023-01-12 Roberto Carlos Walsh [place] of 14:16:00 [place] MD [facility] POC GLUCOSE SCREEN 2023-01-12 Roberto Carlos Walsh [place] of 12:55:00 [place] [facility] POC GLUCOSE SCREEN 2023-01-12 Roberto Carlos Walsh [place] of 10:59:00 [facility] BASIC METABOLIC PANEL, 2023-01-12 Ankit Locke [facility] CALCIUM TOTAL 08:03:00 [facility] MAGNESIUM LEVEL 2023-01-12 Ankit Locke [place] f 08:03:00 [place] [facility] PHOSPHORUS LEVEL 2023-01-12 [facility] [place] [facility] 08:03:00 [facility] COMPLETE BLOOD COUNT W/ 2023-01-12 Ankit Locke [facility] ersity of DIFFERENTIAL 08:03:00 [place] [facility] GLUCOSE LEVEL 2023-01-12 Irina Houston [place] of 08:03:00 [place] [facility] BLOOD UREA NITROGEN 2023-01-12 Irina Houston [facility] 08:03:00 [place] [facility] ELECTROLYTE PANEL 2023-01-12 Irina Houston [place] of 08:03:00 [facility] SERUM CREATININE 2023-01-12 Irina Houston [facility] 08:03:00 [place] [facility] .GLOMERULAR FILTRATION RATE 2023-01-12 Irina Houston Uni versity of 08:03:00 [place] [facility] CALCIUM LEVEL TOTAL 2023-01-12 Irina Houston [place] of 08:03:00 [place] [facility] Results CBC 2023-01-12 Irina Houston [place] of 08:03:00 [place] [facility] MANUAL DIFFERENTIAL 2023-01-12 Irina Houston [place] of 08:03:00 [facility] POC GLUCOSE SCREEN 2023-01-12 Roberto Carlos Walsh [place] of 06:58:00 [facility] COVID-19 (SARS-COV-2) 2023-01-12 Narinder, [facility] ity of ASYMPTOMATIC-LT 03:25:00 [facility] XR KNEE 1 OR 2 VW RIGHT 2023-01-12 Nguyen Barcenas [facility] 03:22:08 [facility] POC GLUCOSE SCREEN 2023-01-12 Roberto Carlos Walsh [place] of 01:37:[address] [facility] CT HEAD WO CONTRAST 2023-01-11 Nguyen Barcenas [facility] of 23:29:12 [facility] COMPLETE BLOOD COUNT W/ 2023-01-11 Nguyen [facility]arcenas [facility] DIFFERENTIAL 21:11:00 [facility] COMPREHENSIVE METABOLIC PANEL 2023-01-11 Nguyen Barcenas [facility] 21:11:00 [facility] MAGNESIUM LEVEL 2023-01-11 Nguyen Barcenas [facility] 21:11:00 [facility] PHOSPHORUS LEVEL 2023-01-11 Nguyen Barcenas [place] f 21:11:00 [facility] PROTHROMBIN TIME 2023-01-11 Nguyen Barcenas [place] f 21:11:00 [facility] APTT 2023-01-11 Nguyen Barcenas [place] of 21:11:00 [facility] Results CBC 2023-01-11 Nguyen Barcenas [facility] of 21:11:00 [facility] MANUAL DIFFERENTIAL 2023-01-11 Nguyen Barcenas [facility] of 21:11:00 [facility] GLUCOSE LEVEL 2023-01-11 Nguyen Barcenas [facility] of 21:11:00 [facility] BLOOD UREA NITROGEN 2023-01-11 Nguyen Barcenas [facility] of 21:11:00 [facility] ELECTROLYTE PANEL 2023-01-11 Nguyen Barcenas [facility] of 21:11:00 [facility] SERUM CREATININE 2023-01-11 Nguyen Barcenas [place] f 21:11:00 [facility] .GLOMERULAR FILTRATION RATE 2023-01-11 Nguyen Barcenas [facility] n[facility] of 21:11:00 [place] [facility] CALCIUM LEVEL TOTAL 2023-01-11 Nguyen Barcenas [facility] of 21:11:00 [place] [facility] ALBUMIN LEVEL 2023-01-11 Nguyen Barcenas [facility] of 21:11:00 [place] [facility] ALKALINE PHOSPHATASE 2023-01-11 Nguyen Barcenas Universi ty of 21:11:00 [place] [facility] ALANINE AMINOTRANSFERASE 2023-01-11 Nguyen Barcenas Univ ersity of 21:11:00 [place] [facility] ASPARTATE AMINOTRANSFERASE 2023-01-11 Nguyen Barcenas Un iversity of 21:11:00 [place] [facility] TOTAL PROTEIN 2023-01-11 Nguyen Barcenas [facility] of 21:11:00 [facility] FRACTIONATED BILIRUBIN 2023-01-11 Nguyen Barcenas Univer sity of 21:11:00 [facility] COMPREHENSIVE METABOLIC PANEL 2023-01-07 Lorena Hdez [place] of 14:28:23 [facility] COMPLETE BLOOD COUNT W/ 2023-01-07 Lorena Hdez [facility] versity of DIFFERENTIAL 14:28:23 [place] [facility] MAGNESIUM LEVEL 2023-01-07 Lorena Hdez [place] of 14:28:23 [facility] PHOSPHORUS LEVEL 2023-01-07 Lorena Hdez [place] of 14:28:23 [facility] GLUCOSE LEVEL 2023-01-07 Lorena Hdez [place] of 14:28:23 [facility] BLOOD UREA NITROGEN 2023-01-07 Lorena Hdez [facility] ity of 14:28:23 [facility] ELECTROLYTE PANEL 2023-01-07 Lorena Hdez [facility] 14:28:23 [facility] SERUM CREATININE 2023-01-07 Lorena Hdez [place] of 14:28:23 [facility] .GLOMERULAR FILTRATION RATE 2023-01-07 Lorena Hdez [place] of 14:28:23 [facility] CALCIUM LEVEL TOTAL 2023-01-07 Lorena Hdez [facility] ity of 14:28:23 [facility] ALBUMIN LEVEL 2023-01-07 Lorena Hdez [place] of 14:28:23 [facility] ALKALINE PHOSPHATASE 2023-01-07 [facility] 14:28[facility]23 [facility] ALANINE AMINOTRANSFERASE 2023-01-07 Lorena Hdez iversity of 14:28:23 [facility] ASPARTATE AMINOTRANSFERASE 2023-01-07 Lorena Hdez [place] of 14:28:23 [facility] TOTAL PROTEIN 2023-01-07 Lorena Hdez [place] of 14:28:23 [facility] FRACTIONATED BILIRUBIN 2023-01-07 Lorena Hdez [facility] ersity of 14:28:23 [facility] Results CBC 2023-01-07 Lorena Hdez [place] of 14:28:23 [facility] MANUAL DIFFERENTIAL 2023-01-07 Lorena Hdez [facility] ity of 14:28:23 [facility] COMPREHENSIVE METABOLIC PANEL 2023-01-01 Lorena Hdez [facility] of 14:26:43 [facility] COMPLETE BLOOD COUNT W/ 2023-01-01 Lorena Hdze [facility] versity of DIFFERENTIAL 14:26:43 [facility] MAGNESIUM LEVEL 2023-01-01 Lorena Hdez [place] of 14:26:43 [facility] PHOSPHORUS LEVEL 2023-01-01 Lorena Hdez [place] of 14:26:43 [facility] GLUCOSE LEVEL 2023-01-01 Lorena Hdez [place] of 14:26:43 [facility] BLOOD UREA NITROGEN 2023-01-01 Lorena Hdez [facility] ity of 14:26:43 [facility] ELECTROLYTE PANEL 2023-01-01 Lorena Hdez [facility] 14:26:43 [place] [facility] SERUM CREATININE 2023-01-01 Simona Hdezfer [facility] of 14:26:43 [facility] .GLOMERULAR FILTRATION RATE 2023-01-01 [facility] of 14:26:43 [facility] CALCIUM LEVEL TOTAL 2023-01-01 [facility] 14:26:43 [facility] ALBUMIN LEVEL 2023-01-01 [facility] of 14:26:43 [facility] ALKALINE PHOSPHATASE 2023-01-01 [facility] 14:26:43 [facility] ALANINE AMINOTRANSFERASE 2023-01-01 Simona Hdezfer Kayla Un iversity of 14:26:43 [facility] ASPARTATE AMINOTRANSFERASE 2023-01-01 [facility] of 14:26:43 [facility] TOTAL PROTEIN 2023-01-01 [facility] Center[facility]onaLorenaC[facility] of 14:26:43 [facility] FRACTIONATED BILIRUBIN 2023-01-01 [facility] ers[facility] of 14:26:43 [place] [facility] Results CBC 2023-01-01 [facility] of 14:26:43 [facility] MANUAL DIFFERENTIAL 2023-01-01 [facility] it[facility] of 14:26:43 [facility] [place] VISUAL FIELD, 2022-12-29 Suzanne Corona ity of INTERMEDIATE - OU - BOTH EYES 16:51:[address] [facility] OCT, OPTIC NERVE - OU - BOTH 2022-12-29 Suzanne Corona U [facility]iversity of EYES 16:43:49 [facility] OCT, RETINA - OU - BOTH EYES 2022-12-29 Luke Coronaham U niversity of 16:43:47 [facility] COMPREHENSIVE METABOLIC PANEL 2022-12-24 Lorena Hdez [facility] of 15:16:00 [facility] COMPLETE BLOOD COUNT W/ 2022-12-24 Lorena Hdez [facility] versity of DIFFERENTIAL 15:16:00 [facility] MAGNESIUM LEVEL 2022-12-24 [facility] 15:16:00 [facility] PHOSPHORUS LEVEL 2022-12-24 [facility] of 15:16:00 [facility] GLUCOSE LEVEL 2022-12-24 [facility] 15:16:00 [facility] BLOOD UREA NITROGEN 2022-12-24 Lorena Hdez [facility] ity of 15:16:00 [facility] ELECTROLYTE PANEL 2022-12-24 Lorena Hdez Universit y of 15:16:00 [facility] SERUM CREATININE 2022-12-24 [facility] 15:16:00 [facility] .GLOMERULAR FILTRATION RATE 2022-12-24 Lorena Hdez [place] of 15:16:00 [facility] CALCIUM LEVEL TOTAL 2022-12-24 Lorena Hdez [facility] ity of 15:16:00 [facility] ALBUMIN LEVEL 2022-12-24 [facility] 15:16:00 [facility] ALKALINE PHOSPHATASE 2022-12-24 [facility]dez [facility] 15:16:00 [facility] ALANINE AMINOTRANSFERASE 2022-12-24 Lorena Hdez Un iversity of 15:16:00 [facility] ASPARTATE AMINOTRANSFERASE 2022-12-24 Lorena Hdez [place] of 15:16:00 [facility] TOTAL PROTEIN 2022-12-24 Lorena Hdez [place] of 15:16:00 [place] [facility] FRACTIONATED BILIRUBIN 2022-12-24 [facility] ers[facility] of 15:16:00 [place] Liane olivier [facility] Results CBC 2022-12-24 [facility] of 15:16:00 [place] Liane olivier [facility] MANUAL DIFFERENTIAL 2022-12-24 Lorena Hdez [facility] ity of 15:16:00 [place] Liane olivier [facility] COVID-19 (SARS-COV-2) 2022-12-23 Winter Luu [facility] sity of PCR-ASYMPTOMATIC MC 18:01:00 [place] [facility] POC GLUCOSE SCREEN 2022-12-16 [facility] of 00:07:00 [place] Liane olivier [facility] POC GLUCOSE SCREEN 2022-12-15 [facility] of 18:52:00 [place] Liane olivier [facility] OCT, OPTIC NERVE - OU - BOTH 2022-12-15 [facility] versity of EYES 16:37:29 [place] Liane olivier [facility] OCT, RETINA - OU - BOTH EYES 2022-12-15 [facility] versity of 16:37:23 [place] Rob [facility] FUNDUS PHOTOS - OU - BOTH 2022-12-15 Fareed Davis [facility] sity of EYES 16:37:12 [place] Liane olivier [facility] 3D DENTAL IMAGING (ICAT) 2022-12-15 Wilder Soliz [facility] ity of 14:42:55 [place] Liane olivier [facility] POC GLUCOSE SCREEN 2022-12-15 Meche [facility] of 13:19:00 [place] Liane olivier [facility] POC GLUCOSE SCREEN 2022-12-15 [facility] [place] of 12:12:00 [place] Carreon soy [facility] BASIC METABOLIC PANEL, 2022-12-15 Mana Powersit y of CALCIUM TOTAL 09:44:00 [place] Liane olivier [facility] MAGNESIUM LEVEL 2022-12-15 Mana Powers [place] of 09:44:00 [place] Liane olivier [facility] PHOSPHORUS LEVEL 2022-12-15 Mana Powers [place] of 09:44:00 [place] Rob [facility] COMPLETE BLOOD COUNT W/ 2022-12-15 Mana Powers [facility] ty of DIFFERENTIAL 09:44:00 [place] Liane olivier [facility] GLUCOSE LEVEL 2022-12-15 [facility] of 09:44:00 [place] Liane olivier [facility] BLOOD UREA NITROGEN 2022-12-15 [facility] o f 09:44:00 [place] Liane olivier [facility] ELECTROLYTE PANEL 2022-12-15 Shaye PowersB[facility] of 09:44:00 [place] Liane olivier [facility] SERUM CREATININE 2022-12-15 [facility] of 09:44:00 [place] [facility] Birminghamevelin olivier [facility] .GLOMERULAR FILTRATION RATE 2022-12-15 Mana Powers [facility] ersity of 09:44:00 [place] Liane olivier [facility] CALCIUM LEVEL TOTAL 2022-12-15 [facility] o f 09:44:00 [place] Carreon soy [facility] Results CBC 2022-12-15 Mana Powers [place] of 09:44:00 [place] Liane olivier [facility] MANUAL DIFFERENTIAL 2022-12-15 [facility] o f 09:44:00 [place] Liane olivier [facility] POC GLUCOSE SCREEN 2022-12-15 Travis Lopez [place] of 08:28:00 [place] Liane olivier [facility] POC GLUCOSE SCREEN 2022-12-15 Travis Lopez [place] of 04:04:00 [place] Liane olivier [facility] POC GLUCOSE SCREEN 2022-12-14 Travis Lopez [place] of 23:26:00 [place] [facility] POC GLUCOSE SCREEN 2022-12-14 Travis Lopez [place] of 22:14:00 [place] Liane olivier [facility] [place] MODIFIED BARIUM SWALLOW W 2022-12-14 Trista LopezCarolinas [facility] of SPEECH 20:37:56 [place] Liane olivier [facility] Center POC GLUCOSE SCREEN 2022-12-14 Travis Lopez [place] of 18:08:00 [place] Liane olivier [facility] GENERAL LABORATORY ADD ON 2022-12-14 Travis Lopez [facility] versity of TEST 14:03:00 [place] [facility] POC GLUCOSE SCREEN 2022-12-14 Travis Lopez [place] of 13:25:00 [place] [facility] POC GLUCOSE SCREEN 2022-12-14 Derrick Gill [facility] ty of 11:55:00 [place] [facility] BASIC METABOLIC PANEL, 2022-12-14 Mana Powers [facility] CALCIUM TOTAL 10:46:00 [place] [facility] MAGNESIUM LEVEL 2022-12-14 Mana Powers [place] of 10:46:00 [facility] PHOSPHORUS LEVEL 2022-12-14 Mana Powers [place] of 10:46:00 [facility] COMPLETE BLOOD COUNT W/ 2022-12-14 Mana Powers [facility] ty of DIFFERENTIAL 10:46:00 [facility] GLUCOSE LEVEL 2022-12-14 Mana Powers [place] of 10:46:00 [facility] BLOOD UREA NITROGEN 2022-12-14 Mana Powers [place] o f 10:46:00 [facility] ELECTROLYTE PANEL 2022-12-14 Mana Powers [place] of 10:46:00 [facility] SERUM CREATININE 2022-12-14 Mana Powers [place] of 10:46:00 [facility] .GLOMERULAR FILTRATION RATE 2022-12-14 Mana Powers [facility] ersity of 10:46:00 [place] [facility] CALCIUM LEVEL TOTAL 2022-12-14 Mana Powers [place] o f 10:46:00 [facility] Results CBC 2022-12-14 Mana Powers [place] of 10:46:00 [facility] MANUAL DIFFERENTIAL 2022-12-14 Mana Powers [place] o f 10:46:00 [place] [facility] ALBUMIN LEVEL 2022-12-14 Travis Lopez [place] of 10:46:00 [place] [facility] ALKALINE PHOSPHATASE 2022-12-14 Travis Lopez [facility] ty of 10:46:00 [place] [facility] ALANINE AMINOTRANSFERASE 2022-12-14 [facility] ersity of 10:46:00 [place] Liane olivier [facility] ASPARTATE AMINOTRANSFERASE 2022-12-14 [facility] iversity of 10:46:00 [place] Liane olivier [facility] TOTAL PROTEIN 2022-12-14 Jessica [facility] of 10:46:00 [place] [facility] Birminghamevelin olivier [facility] FRACTIONATED BILIRUBIN 2022-12-14 Trista LopezAtrium Health University Cityer sity of 10:46:00 [place] [facility] Birminghamevelin olivier [facility] POC GLUCOSE SCREEN 2022-12-14 ChristinaMontana [facility] of 07:36:00 [place] Liane olivier [facility] POC GLUCOSE SCREEN 2022-12-14 Jessica [facility] of 03:56:00 [place] [facility] Birminghamevelin olivier [facility] POC GLUCOSE SCREEN 2022-12-14 ChristinaMontana [facility] of 00:31:00 [place] Liane olivier [facility] POC GLUCOSE SCREEN 2022-12-13 Jessica [facility] of 19:24:00 [place] [facility] POC GLUCOSE SCREEN 2022-12-13 ChristinaMontana [facility] of 14:02:00 [place] [facility] Birminghamevelin olivier [facility] POC GLUCOSE SCREEN 2022-12-13 Jessica [facility] of 11:58:00 [place] [facility] Birminghamevelin [facility] Center POC GLUCOSE SCREEN 2022-12-13 Jessica [facility] of 09:24:00 [place] Liane olivier [facility] BASIC METABOLIC PANEL, 2022-12-13 Mana Powersit y of CALCIUM TOTAL 09:12:00 [place] Liane olivier [facility] MAGNESIUM LEVEL 2022-12-13 Mana Powers [place] of 09:12:00 [place] [facility] Birminghamevelin olivier [facility] PHOSPHORUS LEVEL 2022-12-13 Mana Powers [place] of 09:12:00 [place] [facility] Birminghamevelin [facility] COMPLETE BLOOD COUNT W/ 2022-12-13 Mana Powers ty of DIFFERENTIAL 09:12:00 [place] [facility] GLUCOSE LEVEL 2022-12-13 Mana Powers [place] of 09:12:00 [place] Rob n [facility] BLOOD UREA NITROGEN 2022-12-13 [facility] o f 09:12:00 [place] [facility] ELECTROLYTE PANEL 2022-12-13 Mana Powers [place] of 09:12:00 [place] [facility] SERUM CREATININE 2022-12-13 Mana Powers [place] of 09:12:00 [place] [facility] .GLOMERULAR FILTRATION RATE 2022-12-13 Mana Powers [facility] ersity of 09:12:00 [place] [facility] CALCIUM LEVEL TOTAL 2022-12-13 [facility] o f 09:12:00 [place] [facility] Results CBC 2022-12-13 Mana Powers [place] of 09:12:00 [place] [facility] MANUAL DIFFERENTIAL 2022-12-13 Mana Powers [place] o f 09:12:00 [place] [facility] POC GLUCOSE SCREEN 2022-12-13 CoreyLos [facility]amitos Medical CenterpatricEn[facility] of 03:43:00 [place] [facility] POC GLUCOSE SCREEN 2022-12-13 CoreyLos Alamitos Medical CenterpatricEncompass [facility] of 00:16:00 [place] [facility] POC GLUCOSE SCREEN 2022-12-12 [facility]ricEn[facility] of 18:52:00 [place] [facility] POC GLUCOSE SCREEN 2022-12-12 [facility] of 13:47:00 [place] [facility] POC GLUCOSE SCREEN 2022-12-12 CoreyLos Alamitos Medical CenterpatricEncompass [facility] of 11:52:00 [place] [facility] BASIC METABOLIC PANEL, 2022-12-12 Mana Powers [facility] CALCIUM TOTAL 10:30:00 [place] [facility] MAGNESIUM LEVEL 2022-12-12 Mana Powers [place] of 10:30:00 [place] [facility] PHOSPHORUS LEVEL 2022-12-12 Mana Powers [place] of 10:30:00 [place] [facility] COMPLETE BLOOD COUNT W/ 2022-12-12 Mana Powers [facility] ty of DIFFERENTIAL 10:30:00 [place] [facility] GLUCOSE LEVEL 2022-12-12 GioMana [place] of 10:30:00 [place] Liane olivier [facility] BLOOD UREA NITROGEN 2022-12-12 [facility] o f 10:30:00 [place] Liane olivier [facility] ELECTROLYTE PANEL 2022-12-12 [facility] of 10:30:00 [place] Liane olivier [facility] SERUM CREATININE 2022-12-12 [facility] of 10:30:00 [place] Liane olivier [facility] .GLOMERULAR FILTRATION RATE 2022-12-12 [facility]ayeHonorHealth [facility] ersity of 10:30:00 [place] Liane olivier [facility] CALCIUM LEVEL TOTAL 2022-12-12 [facility] o f 10:30:00 [place] Liane olivier [facility] Results CBC 2022-12-12 [facility] GardenShayeB[facility] of 10:30:00 [place] Liane oliiver [facility] MANUAL DIFFERENTIAL 2022-12-12 [facility] o f 10:30:00 [place] Liane olivier [facility] POC GLUCOSE SCREEN 2022-12-12 Trista LopezCarolinas [facility] of 08:06:00 [place] Carreon soy [facility] POC GLUCOSE SCREEN 2022-12-12 Trista LopezCarolinas [facility] of 04:01:00 [place] Liane olivier [facility] LACTIC ACID, VENOUS 2022-12-12 Trista LopezGranville Medical Centerit y of 03:50:00 [place] Liane olivier [facility] VENOUS BLOOD GAS 2022-12-12 ChristinaTrista BoyleCarolinas [facility] o f 00:21:00 [place] Liane olivier [facility] LIPASE LEVEL 2022-12-12 Trista LopezCarolinas [facility] of 00:21:00 [place] [facility] Birminghamevelin olivier [facility] POC GLUCOSE SCREEN 2022-12-12 ChristinaTrista BoyleCarolinas [facility] of 00:10:00 [place] Liane olivier [facility] GENERAL LABORATORY ADD ON 2022-12-11 Travis Lopez [facility] versity of TEST 23:39:00 [place] [facility] KETONE BODIES QUALITATIVE 2022-12-11 [place] Unive rsity of 23:19:00 [place] [facility] POC GLUCOSE SCREEN 2022-12-11 [facility] of 22:51:00 [place] [facility] LACTIC ACID, VENOUS 2022-12-11 [facility] y of 22:33:00 [place] [facility] ELECTROLYTE PANEL 2022-12-11 Waleska [place]inas [place] of 22:33:00 [place] [facility] LIPASE LEVEL 2022-12-11 Waleska Salinas [place] of 22:33:00 [place] [facility] POC CRITICAL 2022-12-11 [facility] of 21:34:00 [place] [facility] POC GLUCOSE SCREEN 2022-12-11 [facility] of 21:34:00 [place] [facility] POC CRITICAL 2022-12-11 [facility] of 20:33:00 [place] [facility] POC GLUCOSE SCREEN 2022-12-11 [facility] of 20:33:00 [place] [facility] POC GLUCOSE SCREEN 2022-12-11 [facility] of 18:35:00 [place] [facility] POC GLUCOSE SCREEN 2022-12-11 [facility] of 14:14:00 [place] [facility] LACTIC ACID, VENOUS 2022-12-11 Mana Powers o f 10:37:59 [place] [facility] BASIC METABOLIC PANEL, 2022-12-11 Mana Powers y of CALCIUM TOTAL 10:30:00 [place] [facility] MAGNESIUM LEVEL 2022-12-11 Mana Powers [place] of 10:30:00 [place] [facility] PHOSPHORUS LEVEL 2022-12-11 Mana Powers [place] of 10:30:00 [place] [facility] COMPLETE BLOOD COUNT W/ 2022-12-11 Mana Powers ty of DIFFERENTIAL 10:30:00 [place] [facility] GLUCOSE LEVEL 2022-12-11 Irina Houston [place] of 10:30:00 [place] Liane olivier [facility] BLOOD UREA NITROGEN 2022-12-11 Irina Houston [place] of 10:30:00 [place] Liane olivier [facility] ELECTROLYTE PANEL 2022-12-11 Irina Houston [place] of 10:30:00 [place] Liane olivier [facility] SERUM CREATININE 2022-12-11 Irina Houston [place] of 10:30:00 [place] [facility] .GLOMERULAR FILTRATION RATE 2022-12-11 Irina Houston Uni versity of 10:30:00 [place] Liane olivier [facility] CALCIUM LEVEL TOTAL 2022-12-11 Irina Houston [place] of 10:30:00 [place] [facility] Results CBC 2022-12-11 Irina Houston [facility] 10:30:00 [place] Liane olivier [facility] MANUAL DIFFERENTIAL 2022-12-11 Irina Houston [facility] 10:30:00 [place] Carreon soy [facility] POC GLUCOSE SCREEN 2022-12-11 [facility] 07:20:00 Jaycee [place] [facility] POC GLUCOSE SCREEN 2022-12-11 [facility] 04:00:00 [facility] GLUCOSE SCREEN 2022-12-11 [facility] 00:29:00 Jaycee Blackburn MD [facility] POC GLUCOSE SCREEN 2022-12-10 [facility] 23:20:00 [facility]AST 2022-12-10 [facility] o f 21:21:00 Jaycee Blackburn MD [facility] POC GLUCOSE SCREEN 2022-12-10 [facility] of 19:45:00 Jaycee [place] [facility] POC GLUCOSE SCREEN 2022-12-10 Abelino RajputIzzy [place] o f 17:35:00 [place] [facility] Birm[facility]hamevelin [facility] POC GLUCOSE SCREEN 2022-12-10 Mer Milian [place] of 13:30:00 [place] MD Rob [facility] URINE CULTURE 2022-12-10 Tammy Mike [place] of 12:13:00 [place] [facility] URINALYSIS WITH MICROSCOPIC 2022-12-10 Tammy Mike [facility] ersity of IF INDICATED 12:13:00 [place] [facility] BASIC METABOLIC PANEL, 2022-12-10 Mana Powers [facility] y of CALCIUM TOTAL 11:13:00 [place] [facility] MAGNESIUM LEVEL 2022-12-10 [facility] 11:13:00 [place] [facility] PHOSPHORUS LEVEL 2022-12-10 [facility] of 11:13:00 [facility] COMPLETE BLOOD COUNT W/ 2022-12-10 Gio [facility] ty of DIFFERENTIAL 11:13:00 [place] [facility] HEMOGLOBIN A1C 2022-12-10 Irina Houston [place] of 11:13:00 [place] [facility] GLUCOSE LEVEL 2022-12-10 Irina Houston [place] of 11:13:00 [place] [facility] BLOOD UREA NITROGEN 2022-12-10 Irina Houston [place] of 11:13:00 [facility] ELECTROLYTE PANEL 2022-12-10 Irina Houston [place] of 11:13:00 [place] [facility] SERUM CREATININE 2022-12-10 Irina Houston [place] of 11:13:00 [facility] .GLOMERULAR FILTRATION RATE 2022-12-10 Irina Houston Uni versity of 11:13:00 [place] [facility] CALCIUM LEVEL TOTAL 2022-12-10 Irina Houston [place] of 11:13:00 [facility] Results CBC 2022-12-10 Irina Houston [place] of 11:13:00 [facility] MANUAL DIFFERENTIAL 2022-12-10 Irina Houston [place] of 11:13:00 [facility] POC GLUCOSE SCREEN 2022-12-10 Mer Milian [place] of 07:38:00 [facility] POC GLUCOSE SCREEN 2022-12-10 Mer Milian [place] of 05:18:00 [facility] POC VENOUS BLOOD GAS + 2022-12-10 Roberto Carlos Walsh [facility] y of LACTATE 03:36:00 [facility] COVID-19 (SARS-COV-2) 2022-12-10 Roberto Carlos Walsh [place] of ASYMPTOMATIC-LT 00:01:00 [facility] AMMONIA LEVEL 2022-12-10 [facility] of 00:01:00 [facility] COMPLETE BLOOD COUNT W/ 2022-12-[address] [facility] ty of DIFFERENTIAL 00:01:00 [facility] COMPREHENSIVE METABOLIC PANEL 2022-12-10 [facility] iversity of 00:01:00 [facility] MAGNESIUM LEVEL 2022-12-10 [facility] 00:01:00 [facility] PHOSPHORUS LEVEL 2022-12-10 [facility] 00:01:00 [facility] PROTHROMBIN TIME 2022-12-10 [facility] of 00:01:00 [facility] APTT 2022-12-10 [facility] 00:01:00 [facility] LACTATE DEHYDROGENASE 2022-12-10 [facility] 00:01:00 [facility] Results CBC 2022-12-10 [facility] of 00:01:00 [facility] MANUAL DIFFERENTIAL 2022-12-10 [facility] o f 00:01:00 [facility] GLUCOSE LEVEL 2022-12-10 [facility] of 00:01:00 [facility] BLOOD UREA NITROGEN 2022-12-10 [facility] o f 00:01:00 [facility] ELECTROLYTE PANEL 2022-12-10 [facility] of 00:01:00 [facility] SERUM CREATININE 2022-12-10 [facility] of 00:01:00 [facility] .GLOMERULAR FILTRATION RATE 2022-12-10 [facility] ersity of 00:01:00 [place] MD Liane olivier [facility] CALCIUM LEVEL TOTAL 2022-12-10 [facility] o f 00:01:00 [place] Liane olivier [facility] ALBUMIN LEVEL 2022-12-10 [facility] of 00:01:00 [place] MD Rob [facility] ALKALINE PHOSPHATASE 2022-12-10 [facility] of 00:01:00 [place] Liane olivier [facility] ALANINE AMINOTRANSFERASE 2022-12-10 [facility] ity of 00:01:00 [place] [facility] Birm[facility]ame[facility]in [facility] ASPARTATE AMINOTRANSFERASE 2022-12-10 [facility] rsity of 00:01:00 [place] Liane olivier [facility] TOTAL PROTEIN 2022-12-10 [facility] of 00:01:00 [place] Liane olivier [facility] FRACTIONATED BILIRUBIN 2022[facility]12-10 [facility] 00:01[facility]00 [place] Rob [facility] HP MDA CHRISTINE MUTATION 2022-12-04 Lorena Hdez Uni versity of ANALYSIS PRECISION PANEL 16:56:00 [facility] REPORT [facility] SOLID TUMOR GENOMIC 2022-12-04 Lorena Hdez U niversity of ASSAY FUSIONS 2018 16:56:00 Bere Portillo rson INTERPRETATION AND REPORT [facility] MOLECULAR BLOOD COLLECTION 2022-12-04 Lorena Hdez [facility] of 16:56:00 Bere Rob [facility] MRI SKULL BASE WITH AND 2022-11-30 Lorena Hdez Uni versity of WITHOUT CONTRAST 17:12:54 Bere [facility] PETCT CONTRAST ENHANCED 2022-11-27 [facility] ty of INITIAL TREATMENT STRATEGY 21:57:06 Meg Blackburn MD [facility] POC GLUCOSE SCREEN 2022-11-27 [facility] of 19:06:00 Meg Rob [facility] POC GLUCOSE SCREEN 2022-11-27 [facility] of 18:29:00 Meg Rob [facility] NGS BLOOD CONTROL 2022-11-26 Lorena Hdez [facility] sity of 19:07:00 [facility] COMPLETE BLOOD COUNT W/ 2022-11-26 [facility] versity of DIFFERENTIAL 19:07:00 [place] [facility] COMPREHENSIVE METABOLIC PANEL 2022-11-26 Lorena Hdez [facility] of 19:07:00 [place] Liane olivier [facility] FREE THYROXINE 2022-11-26 [facility] of 19:07:00 [place] [facility] LACTATE DEHYDROGENASE 2022-11-26 Simona H[facility]fer [facility] rsity of 19:07:00 [place] [facility] soy [facility] MAGNESIUM LEVEL 2022-11-26 [facility] of 19:07:00 [place] [facility] soy [facility] PHOSPHORUS LEVEL 2022-11-26 [facility] of 19:07:00 [facility] URIC ACID 2022-11-26 [facility] of 19:07:00 [place] [facility] VIT[facility]IN D 25 HYDROXY LEVEL 2022-11-26 [facility]dezSimonaLorenaC[facility] of 19:07:00 [place] [facility] soy [facility] THYROID STIMULATING HORMONE 2022-11-26 [facility] of 19:07:00 [place] [facility] soy [facility] APTT 2022-11-26 [facility] of 19:07:00 [place] [facility] PROTHROMBIN TIME 2022-11-26 [facility] of 19:07:00 [place] Liane olivier [facility] Results CBC 2022-11-26 [facility] of 19:07:00 [place] [facility] MANUAL DIFFERENTIAL 2022-11-26 Simona Hdezfer [facility] ity of 19:07:00 [place] Carreon soy [facility] GLUCOSE LEVEL 2022-11-26 [facility] of 19:07:00 [place] [facility] BLOOD UREA NITROGEN 2022-11-26 [facility] of 19:07:00 [place] Liane olivier [facility] ELECTROLYTE PANEL 2022-11-26 [facility] y of 19:07:00 [place] Liane olivier [facility] SERUM CREATININE 2022-11-26 [facility] of 19:07:00 [place] [facility] Birminghamevelin [facility] .GLOMERULAR FILTRATION RATE 2022-11-26 [facility] of 19:07:00 [place] Liane olivier [facility] CALCIUM LEVEL TOTAL 2022-11-26 [facility] ity of 19:07:00 [place] [facility] Birminghamevelin olivier [facility] ALBUMIN LEVEL 2022-11-26 [facility] of 19:07:00 [place] [facility] Birminghamevelin olivier [facility] ALKALINE PHOSPHATASE 2022-11-26 [facility] sity of 19:07:00 [place] Liane olivier [facility] ALANINE AMINOTRANSFERASE 2022-11-26 [facility] iversity of 19:07:00 [place] [facility] ASPARTATE AMINOTRANSFERASE 2022-11-26 [facility] of 19:07:00 [place] Liane olivier [facility] TOTAL PROTEIN 2022-11-26 [facility] of 19:07:00 [place] [facility] Birminghamevelin olivier [facility] FRACTIONATED BILIRUBIN 2022-11-26 [facility] ersity of 19:07:00 [place] [facility] Birminghamevelin [facility] ANA CRISTINA GRIFFIN NTRK1 FUSION ANALYSIS 2022-11-26 [facility] of MATERIAL REQUEST 18:43:02 Bere [facility] ANA CRISTINA GRIFFIN NTRK2 FUSION ANALYSIS 2022-11-26 [facility] of MATERIAL REQUEST 18:43:02 Bere [facility] ANA CRISTINA GRIFFIN NTRK3 FUSION ANALYSIS 2022-11-26 [facility] of MATERIAL REQUEST 18:43:02 Bere [facility] ANA CRISTINA GRIFFIN EGFR MUTATION MATERIAL 2022-11-26 [facility] REQUEST 18:43:02 [place] Rob [facility] ANA CRISTINA GRIFFIN ERBB2 MUTATION 2022-11-26 [facility]na[facility] sity of ANALAYSIS MATERIAL REQUEST 18:43:02 [place] [facility] ANA CRISTINA GRIFFIN MTOR MATERIAL REQUEST 2022-11-26 [facility] of 18:43:02 [facility] AP MD PTEN MUTATION MATERIAL 2022-11-26 Lorena Hdez [facility] of REQUEST 18:43:02 [facility] AP IHC PD-L1 MATERIAL REQUEST 2022-11-26 Lorena Hdez [place] of 18:43:02 [facility] AP IHC HER2/MELISSA MATERIAL 2022-11-26 Lorena Hdez Un iversity of REQUEST 18:43:02 [facility] HEPATITIS C VIRUS ANTIBODY 2022-11-17 Red Posada U niversity of 18:11:00 [facility] COMPREHENSIVE METABOLIC PANEL 2022-11-17 Red Posada [place] of 18:11:00 [facility] COMPLETE BLOOD COUNT W/ 2022-11-17 Red Posada [facility] ersity of DIFFERENTIAL 18:11:00 [facility] APTT 2022-11-17 Red Posada [facility] o f 18:11:00 [place] [facility] PROTHROMBIN TIME 2022-11-17 Red Posada [facility] of 18:11:00 [facility] CORTISOL 2022-11-17 Red Posada [facility] o f 18:11:00 [facility] ADRENOCORTICOTROPIC HORMONE 2022-11-17 Red Posada [place] of 18:11:00 [facility] ESTRADIOL LEVEL 2022-11-17 Red Posada [facility] o f 18:11:00 [facility] TESTOSTERONE LEVEL 2022-11-17 Red Posada [facility] 18:11:00 [facility] FOLLICLE STIMULATING HORMONE 2022-11-17 Red Posada [place] of LEVEL 18:11:00 [facility] LUTEINIZING HORMONE 2022-11-17 Red Posada [facility] ty of 18:11:00 [facility] THYROID STIMULATING HORMONE 2022-11-17 Red Posada [place] of 18:11:00 [facility] FREE THYROXINE 2022-11-17 Red Posada [facility] o f 18:11:00 [facility] TOTAL T3 2022-11-17 [facility] f 18:11:00 [facility] INSULIN LIKE GROWTH FACTOR 1 2022-11-17 Red Posada [facility] of 18:11:00 [facility] PROLACTIN 2022-11-17 Antonella [facility] o f 18:11:00 [facility] GLUCOSE LEVEL 2022-11-17 Antonella [facility] o f 18:11:00 [facility] BLOOD UREA NITROGEN 2022-11-17 Red Posada [facility] ty of 18:11:00 [facility] ELECTROLYTE PANEL 2022-11-17 Red Posada [facility] of 18:11:00 [facility] SERUM CREATININE 2022-11-17 Red Posada [facility] of 18:11:00 [facility] .GLOMERULAR FILTRATION RATE 2022-11-17 Red Posada [facility] of 18:11:00 [facility] CALCIUM LEVEL TOTAL 2022-11-17 Red Posada [facility] ty of 18:11:00 [facility] ALBUMIN LEVEL 2022-11-17 Red Posada [facility] o f 18:11:00 [place] [facility] ALKALINE PHOSPHATASE 2022-11-17 Red Posada [facility] ity of 18:11:00 [facility] ALANINE AMINOTRANSFERASE 2022-11-17 Red Posada Uni versity of 18:11:00 [facility] ASPARTATE AMINOTRANSFERASE 2022-11-17 Red Posada U niversity of 18:11:00 [facility] TOTAL PROTEIN 2022-11-17 Red Posada [facility] o f 18:11:00 [place] [facility] FRACTIONATED BILIRUBIN 2022-11-17 Red Posada Unive rsity of 18:11:00 [place] [facility] Liane [facility] Results CBC 2022-11-17 Red Posada [facility] o f 18:11:00 [place] Liane [facility] MANUAL DIFFERENTIAL 2022-11-17 Red Posada Universi ty of 18:11:00 [place] Liane olivier [facility] PATHOLOGY OUTSIDE 2022-10-16 Alexa Alvarez University of INTERPRETATION 00:00:00 [place] Liane olivier [facility] FLU VACC (), 6 MO-64 2022-09-21 Nereida Sheriff Un iversity of YRS, .5ML, IM, QUAD 15:41:00 [facility] (FLUCELVAX) [place] HEAD WO CONTRAST 2022-08-28 [facility] o f 14:23:13 [facility] POCT MOLECULAR FLU 2022-08-25 [facility] of 15:55:00 [facility] CBC W/AUTO DIFF WITH 2022-07-28 [facility] Na ege of PLATELETS 12:34:00 Medicine COMPREHENSIVE METABOLIC PANEL 2022-07-28 [facility] 12:34:00 Medicine FOLATE 2022-07-28 [facility] o f 12:34:00 Medicine HEMOGLOBIN A1C 2022-07-28 [facility] o f 12:34:00 Medicine LIPID PANEL 2022-07-28 [facility] o f 12:34:00 Medicine PROTIME \\T\\ PTT 2022-07-28 [facility] o f 12:34:00 Medicine THYROID PROFILE (T3U - T4 - 2022-07-28 [facility] T7 - TSH) 12:34:00 Medicine URINALYSIS, COMPLETE W/REFLEX 2022-07-28 [facility] of TO CULTURE 12:34:00 Medicine VITAMIN A 2022-07-28 [facility] o f 12:34:00 Medicine VITAMIN B1 2022-07-28 [facility] o f 12:34:00 Medicine VITAMIN B12 2022-07-28 [facility] o f 12:34:00 Medicine VITAMIN D 25 HYDROXY 2022-07-28 [facility] An ege of 12:34:00 Medicine IRON+TIBC+%SAT 2022-07-28 [facility] o f 12:34:00 Medicine FERRITIN 2022-07-28 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 [facility] 12:26:14 Medicine AMB REF TO PHYSICAL MED REHAB 2022-07-08 [facility] 12:26:14 Medicine AMB REF TO BARIATRIC SURGERY 2022-06-16 [facility] 08:27:29 Medicine POCT-GLUCOSE METER 2022-01-[address] [facility] 13:43:00 [facility] REPORT OF PROCEDURE - 2022-01-09 Dewayne Wise [facility] ENDOSCOPY URL 12:37:11 [facility] REPORT OF PROCEDURE - 2022-01-09 Dewayne Wise [facility] ENDOS[facility] URL 12:36:24 [facility] TISSUE EXAM 2022-01-[address] [facility] 11:31:00 [facility] ESOPHAGEAL BALLOON 2022-01-[address] [facility] PROVOCATION STUDY 10:53:00 [facility] COLONOSCOPY, WITH POLYPECTOMY 2022-01-[address] [facility] 10:53:00 [facility] ENDOSCOPY, UPPER GI TRACT, 2022-01-[address] [facility] WITH BIOPSY 10:53:00 [facility] POCT-GLUCOSE METER 2022-01-[address] [facility] 09:59:00 [facility] SARS-COV2/RT-PCR (HS & REF 2022-01-[address] [facility] LABS) 07:55:00 [facility] MANOMETRY, ANORECTAL 2021-12-[address] [facility] 09:24:00 [facility] Sleeve resection of stomach 2017-09-01 [facility] riabonnie [place] 00:00:00 Laparoscopic adjustable 2013-11-01 [facility] [place] gastric banding<sup>1</sup> 06:00:00 Removal of gastric band 2013-11-01 [facility] [place] 00:00:00 Abdominal hysterectomy 2011-11-01 [facility] [place] 00:00:00 Laparoscopic adjustable 2010-11-01 [facility] [place] gastric banding 00:00:00 Appendectomy 2009-11-01 [facility] [place] 00:00:00 Cholecystectomy 2009-11-01 [facility] [place] 00:00:00 Knee joint operation 2006-11-01 [facility] 06:00:00 Shoulder joint operations 2006-11-01 Maynor al [place] 06:00:00 section 1984-11-[address] [facility] Ulises n 00:00:00 Knee Surgery [facility] Practice Procedure on Shoulder [facility] Maintenance of Gastric Band [facility] Practice Gallbladder Surgery [facility] Appendectomy [facility] Plan of Care Planned Activity Planned Date Details Comments Source Future Scheduled 2032-01-[address] [facility] 00:[facility] colon (procedure) [code = 595787486] Future Scheduled 2032-01-[address] [facility] 00:00:00 [facility] colon (procedure) [code = 104164160] Future Scheduled 2032-01-[address] [facility] Test 00:00:00 [facility] colon (procedure) [code = 989322688] Future Scheduled 2032-01-[address] [facility] Test 00:00:00 [facility] colon (procedure) [code = 201400287] Future Scheduled 2032-01-[address] [facility] Test 00:00:00 [facility] colon (procedure) [code = 912835891] Future Scheduled 2032-01-[address] [facility] Test 00:00:00 malignant neoplasm [facility] colon (procedure) [code = 811889724] Future Scheduled 2032-01-[address] [facility] Test 00:00:00 malignant neoplasm [facility] colon (procedure) [code = 653361904] Future Scheduled 2032-01-[address] [facility] Test 00:00:00 malignant neoplasm [facility] colon (procedure) [code = 329368291] Future Scheduled 2032-01-[address] [facility] Test 00:00:00 malignant ne[facility] colon (procedure) [code = 933641351] Future Scheduled 2032-01-[address] [facility] Test 00:00:00 malignant neoplasm [facility] colon (procedure) [code = 611761930] Future Scheduled 2032-01-[address] [facility] Test 00[facility]00:00 malignant neoplasm [facility] colon (procedure) [code = 691469960] Future Scheduled 2032-01-[address] [facility] Test 00:00:00 malignant [facility] colon (procedure) [code = 018104153] Future Scheduled 2032-01-[address] [facility] 00:00:00 malignant neoplasm [facility] colon (procedure) [code = 415191188] Future Scheduled 2032-01-[address] [facility] 00[facility]00:00 malignant neoplasm [facility] colon (procedure) [code = 303988325] Future Scheduled 2032-01-[address] [facility] Test 00:00:00 malignant neoplasm of [facility] Center colon (procedure) [code = 629276062] Future Scheduled 2032-01-[address] [facility] Test 00:00:00 malignant neoplasm of [facility]ica [facility] Center colon (procedure) [code = 889855836] Future Scheduled 2023-07-[address] [facility] Test 00:00:00 (Season Ended) [code = Medic al Center INFLUENZA VACCINE (Season Ended)] Future Scheduled 2023-03-12 COVID-19 Vaccination Uni versity of Test 07:01:22 (4 - Booster for Bere GRIFFIN Moderna series) [code Lauri on Cancer = COVID-19 Vaccination Cente r (4 - Booster for Moderna series)] Future Scheduled 2023-01-[address] [...] Screening (12+)] Future Scheduled 2022-12-02 Screening for [facility] Col lege Test 14:19:17 malignant neoplasm of of Med icine breast (procedure) [code = 581823919] Future Scheduled 2022-12-02 Pneumococcal Combined [facility] Test 14:19:17 (1 - PCV) [code = of Medicin e Pneumococcal Combined (1 - PCV)] Future Scheduled 2022-12-02 TETANUS SHOT (ADULT) [facility] Test 14:19:17 [code = TETANUS SHOT of Medi cine (ADULT)] Future Scheduled 2022-12-02 Diabetic foot [facility] Col lege Test 14:19:17 examination of Medicine (regime/therapy) [code = 069317742] Future Scheduled 2022-12-02 Annual Diabetic [facility] C [facility]lege Test 14:19:17 Retinopathy Screening of Med icine [code = Annual Diabetic Retinopathy Screening] Future Scheduled 2022-12-02 Human immunodeficiency [facility] Test 14:19:17 virus screening of Medicine (procedure) [code = 290366178] Future Scheduled 2022-12-02 Screening for [facility] Col lege Test 14:19:17 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) [code = 909361393] Future Scheduled 2022-12-02 ZOSTER VACCINE (1 of [employer] Test 14:19:17 2) [code = [...] Future Scheduled 2022-12-02 BMI Follow Up Plan [employer] Test 14:19:17 [code = BMI Follow Up of Med icine Plan] Future Scheduled 2022-12-02 Screening for [facility] Test 14:19:17 malignant neoplasm of of Med icine colon (procedure) [code = 355985198] Future Scheduled 2022-11-[address] [...] SCREENING (12+)] Future Scheduled 2022-08-31 Screening for [facility] Col lege Test 13:08:39 malignant neoplasm of of Med icine breast (procedure) [code = [id number]] Future Scheduled 2022-08-31 Pneumococcal Combined [employer] Test 13:08:39 (1 - PCV) [code = of Medicin e Pneumococcal Combined (1 - PCV)] Future Scheduled 2022-08-31 TETANUS SHOT (ADULT) [employer] Test 13:08:39 [code = TETANUS SHOT of Medi cine (ADULT)] Future Scheduled 2022-08-31 Diabetic foot [facility] Test 13:08:39 examination of Medicine (regime/therapy) [code = 754705045] Future Scheduled 2022-08-31 ANNUAL DIABETIC [facility] Test 13:08:39 RETINOPATHY SCREENING of Med icine [code = ANNUAL DIABETIC RETINOPATHY SCREENING] Future Scheduled 2022-08-31 Hepatitis C screening Ba [facility] Test 13:08:39 (procedure) [code = of Medic ine 920540802] Future Scheduled 2022-08-31 [facility] 13:08:39 virus screening of Medicine (procedure) [code = 458893991] Future Scheduled 2022-08-31 Screening for [facility] Test 13:08:39 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) [code = 247171560] Future Scheduled 2022-08-31 MEDICARE AWV (Initial) [facility] [employer] Test 13:08:39 [code = MEDICARE AWV of Medi cine (Initial)] Future Scheduled 2022-08-31 ZOSTER VACCINE (1 of [facility] Test 13:08:39 2) [code = ZOSTER of Medicin e VACCINE (1 of 2)] Future Scheduled 2022-08-31 COVID-19 Vaccine (4 - Ba [facility] Test 13:08:39 Booster for Moderna of Medic ine series) [code = COVID-19 Vaccine (4 - Booster for Moderna series)] Future Scheduled 2022-08-31 FLU VACCINE > 6 MONTHS B [facility] Test 13:08:39 [code = FLU VACCINE > of Med icine 6 MONTHS] Future Scheduled 2022-08-31 BMI FOLLOW UP PLAN [facility] Test 13:08:39 [code = BMI FOLLOW UP of Med icine PLAN] Future Scheduled 2022-08-31 Screening for [facility] Test 13:08:39 malignant neoplasm of of Med icine colon (procedure) [code = 472411775] Future Scheduled 2022-08-11 Screening for [facility] Test 15:35:44 malignant neoplasm of of Med icine breast (procedure) [code = 089075491] Future Scheduled 2022-08-11 TETANUS SHOT (ADULT) [employer] Test 15:35:44 [code = TETANUS SHOT of Medi cine (ADULT)] Future Scheduled 2022-08-11 Diabetic foot [facility] Test 15:35:44 examination of Medicine (regime/therapy) [code = 907399114] Future Scheduled 2022-08-11 ANNUAL DIABETIC [facility] Test 15:35:44 RETINOPATHY SCREENING of Med icine [code = ANNUAL DIABETIC RETINOPATHY SCREENING] Future Scheduled 2022-08-11 Hepatitis C screening Ba [facility] Test 15:35:44 (procedure) [code = of Medic ine 139019447] Future Scheduled 2022-08-11 Human immunodeficiency B [facility] Test 15:35:44 virus screening of Medicine (procedure) [code = 532816263] Future Scheduled 2022-08-11 Screening for [facility] Test 15:35:44 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) [code = 964278856] Future Scheduled 2022-08-11 MEDICARE AWV (Initial) B [facility] Test 15:35:44 [code = MEDICARE AWV of Medi cine (Initial)] Future Scheduled 2022-08-11 ZOSTER VACCINE (1 of [facility] Test 15:35:44 2) [code = ZOSTER of Medicin e VACCINE (1 of 2)] Future Scheduled 2022-08-11 COVID-19 Vaccine (4 - Ba [facility] Test 15:35:44 Booster for Moderna of Medic ine series) [code = COVID-19 Vaccine (4 - Booster for Moderna series)] Future Scheduled 2022-08-11 FLU VACCINE > 6 MONTHS B [facility] Test 15:35:44 [code = FLU VACCINE > of Med icine 6 MONTHS] Future Scheduled 2022-08-11 BMI FOLLOW UP PLAN [facility] Test 15:35:44 [code = BMI FOLLOW UP of Med icine PLAN] Future Scheduled 2022-08-11 Screening for [facility] Test 15:35:44 malignant neoplasm of of Med icine colon (procedure) [code = 737737232] Future Scheduled 2022-07-02 INFLUENZA VACCINE (#1) C [...] of Med icine breast (procedure) [code = 746474068] Future Scheduled 2022-06-16 TETANUS SHOT (ADULT) [employer] Test 07:59:04 [code = TETANUS SHOT of Medi cine (ADULT)] Future Scheduled 2022-06-16 BMI FOLLOW UP PLAN [employer] Test 07:59:04 [code = BMI FOLLOW UP of Med icine PLAN] Future Scheduled 2022-06-16 Hepatitis C screening [employer] Test 07:59:04 (procedure) [code = of Medic ine 324394638] Future Scheduled 2022-06-16 Human immunodeficiency [employer] Test 07:59:04 virus screening of Medicine (procedure) [code = 354708367] Future Scheduled 2022-06-16 Screening for [facility] Test 07:59:04 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) [code = 987133377] Future Scheduled 2022-06-16 MEDICARE AWV (Initial) [employer] Test 07:59:04 [code = MEDICARE AWV of Medi cine (Initial)] Future Scheduled 2022-06-16 ZOSTER VACCINE (1 of [employer] Test 07:59:04 2) [code = [...] 6 MONTHS] Future Scheduled 2022-06-16 Screening for [facility] Test 07:59:04 malignant neoplasm of of Med icine colon (procedure) [code = 095240815] Future Scheduled 2021-11-18 Screening for [facility] 09:34:08 malignant neoplasm of of Med icine colon (procedure) [code = 267382125] Future Scheduled 2021-11-18 Screening for [facility] [employer] Test 09:34:08 malignant neoplasm of of Med icine breast (procedure) [code = 036094690] Future Scheduled 2021-11-18 TETANUS SHOT (ADULT) [employer] Test 09:34:08 [code = TETANUS SHOT of Medi cine (ADULT)] Future Scheduled 2021-11-18 BMI FOLLOW UP PLAN [employer] Test 09:34:08 [code = BMI FOLLOW UP of Med icine PLAN] Future Scheduled 2021-11-18 Hepatitis C screening Ba [facility] Test 09:34:08 (procedure) [code = of Medic ine 494392685] Future Scheduled 2021-11-18 Human immunodeficiency [employer] Test 09:34:08 virus screening of Medicine (procedure) [code = 746262828] Future Scheduled 2021-11-18 Screening for [facility] Test 09:34:08 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) [code = 650217166] Future Scheduled 2021-11-18 MEDICARE AWV (Initial) [employer] Test 09:34:08 [code = MEDICARE AWV of Medi cine (Initial)] Future Scheduled 2021-11-18 ZOSTER VACCINE (1 of [employer] Test 09:34:08 2) [code = ZOSTER of Medicin e VACCINE (1 of 2)] Future Scheduled 2021-11-18 FLU VACCINE > 6 MONTHS [employer] Test 09:34:08 [code = FLU VACCINE > of Med icine 6 MONTHS] Future Scheduled 2021-11-10 COVID-19 VACCINE (4 - [...] Scheduled 2021-11-06 ANOREC MANOM AND 1 Occurrences [facility] Test 14:07:12 EMG-GI DEPT [code = starting of Medic ine NOCPT] 11/06/2021 until 05/06/2022 Future Scheduled 2021-11-06 EGD W/MAC - GI DEPT 1 Occurrences [facility] Test 14:07:11 [code = 08595] starting of Medicine 11/06/2021 until 05/06/2022 Future Scheduled 2021-11-06 COLONOSCOPY W MAC GI 1 Occurrences [facility] Test 14:07:11 DEPT [code = 45677] starting of Medic ine 11/06/2021 until 05/06/2022 [...] Medical Center DEPRESSION SCREENING (12+)] Future Scheduled 2021-09-05 COVID-19 VACCINE [facility]4 [facility]00 Booster for Moderna [facility] series) [code = COVID-19 VACCINE (4 - Booster for Moderna series)] Future Scheduled 2017 SHINGLES VACCINES (1 [facility] 00:[facility]:00 (procedure) [code = [facility] 41643838] Future Scheduled [address] [facility] Test 00:00:00 (procedure) [code = [facility] 63583349] Future Scheduled [address] [facility] Test 00:00:00 (procedure) [code = [facility] 35786974] Future Scheduled [address] [facility] Test 00:00:00 (procedure) [code = [facility] 82700740] Future Scheduled [address] [facility] Test 00:00:00 (procedure) [code = [facility] 08015134] Future Scheduled [address] [facility] Test 00:00:00 (procedure) [code = [facility] 52370850] Future Scheduled [address] [facility] Test 00:00:00 (procedure) [code = [facility] 68236755] Future Scheduled [address] [facility] Test 00:00:00 (procedure) [code = [facility] 78582095] Future Scheduled 2011-11-[address] [...] FIRST YEAR if no IPPE)] Future Scheduled [address] [facility] Test 00:[facility]:00 malignant neoplasm of Medica l Center cervix (procedure) [code = 506250931] Future Scheduled [address] [facility] Test 00:00:00 malignant neoplasm of Medica l Center cervix (procedure) [code = 359745251] Future Scheduled [address] [facility] Test 00:00:00 malignant neoplasm of Medica l Center cervix (procedure) [code = 283733361] Future Scheduled [address] [facility] Test 00:00:00 malignant neoplasm of Medica l Center cervix (procedure) [code = 731440437] Future Scheduled [address] [facility] Test 00:00:00 malignant neoplasm of Medica l Center cervix (procedure) [code = 722386556] Future Scheduled [address] [facility] Test 00:00:00 malignant neoplasm of Medica l Center cervix (procedure) [code = 432327013] Future Scheduled [address] [facility] Test 00:00:00 malignant neoplasm of Medica l Center cervix (procedure) [code = 505196949] Future Scheduled [address] [facility] Test 00:00:00 malignant neoplasm of Medica l Center cervix (procedure) [code = 397449547] Future Scheduled 1986 DTAP/TDAP/TD VACCINES CH I [...] HEPATITIS C Medical Center SCREENING] Future Scheduled [address] [facility] Test 00:00:00 malignant neoplasm of Medica l Center breast (procedure) [code = 501931447] Future Scheduled [address] [facility] Test 00:00:00 (combo) [code = CT Medical C enter Colonography (combo)] Future Scheduled [address] [facility] Test 00:00:00 malignant neoplasm of Medica l Center colon (procedure) [code = 586484305] Future Scheduled [address] [facility] Test 00:00:00 malignant neoplasm of Medica l Center colon (procedure) [code = 341600746] Future Scheduled 1967 [facility]oidoscopy [facility]] [facility] Future Scheduled [address] [facility] Test 00:00:00 malignant neoplasm of Medica l Center breast (procedure) [code = 300075692] Future Scheduled [address] [facility] Test 00:00:00 (combo) [code = CT Medical C enter Colonography (combo)] Future Scheduled [address] [facility] Test 00:00:00 malignant neoplasm of Medica l Center colon (procedure) [code = 046233939] Future Scheduled [address] [facility] Test 00:00:00 malignant neoplasm of Medica l Center colon (procedure) [code = 496183349] Future Scheduled 1967 [facility] [address] [facility] Test 00:00:00 malignant neoplasm of Medica l Center breast (procedure) [code = 366982739] Future Scheduled [address] [facility] Test 00:00:00 (combo) [code = CT Medical C enter Colonography (combo)] Future Scheduled [address] [facility] Test 00[facility]00:00 malignant neoplasm of Medica l Center colon (procedure) [code = 349410772] Future Scheduled [address] [facility] Test 00:00:00 malignant neoplasm of Medica l Center colon (procedure) [code = 381154872] Future Scheduled 1967 [facility] [address] [facility] Test 00:00:00 malignant neoplasm of Medica l Center breast (procedure) [code = 718747226] Future Scheduled [address] [facility] Test 00:00:00 (combo) [code = CT Medical C enter Colonography (combo)] Future Scheduled [address] [facility] Test 00:00:00 malignant neoplasm of Medica l Center colon (procedure) [code = 573228120] Future Scheduled [address] [facility] Test 00:00:00 malignant neoplasm of Medica l Center colon (procedure) [code = 387560079] Future Scheduled 1967 [facility] [address] [facility] Test 00:00:00 malignant neoplasm of Medica l Center breast (procedure) [code = 450743022] Future Scheduled [address] [facility] Test 00:00:00 (combo) [code = CT Medical C enter Colonography (combo)] Future Scheduled [address] [facility] Test 00:00:00 malignant neoplasm of Medica l Center colon (procedure) [code = 949875077] Future Scheduled [address] [facility] Test 00:00:00 malignant neoplasm of Medica l Center colon (procedure) [code = 476885244] Future Scheduled 1967 [facility]] Medical Cent[facility] r Future Scheduled [address] [facility] Test 00:00:00 malignant neoplasm of Medica l Center breast (procedure) [code = 201434325] Future Scheduled [address] [facility] Test 00:00:00 (combo) [code = CT Medical C enter Colonography (combo)] Future Scheduled [address] [facility] Test 00:00:00 malignant neoplasm of Medica l Center colon (procedure) [code = 523260028] Future Scheduled [address] [facility] Test 00:00:00 malignant neoplasm of Medica l Center colon (procedure) [code = 812039822] Future Scheduled 1967 [facility] [address] [facility] Test 00:00:00 malignant neoplasm of Medica l Center breast (procedure) [code = 263902960] Future Scheduled [address] [facility] Test 00:00:00 (combo) [code = CT Medical C enter Colonography (combo)] Future Scheduled [address] [facility] Test 00:00:00 malignant neoplasm of Medica l Center colon (procedure) [code = 310164473] Future Scheduled [address] [facility] Test 00:00:00 malignant neoplasm of Medica l Center colon (procedure) [code = 700591266] Future Scheduled 1967 [facility]] Medical Cente r Future Scheduled [address] [facility] Test 00:00:00 malignant neoplasm of Medica l Center breast (procedure) [code = 579261377] Future Scheduled [address] [facility] Test 00:00:00 (combo) [code = CT Medical C enter Colonography (combo)] Future Scheduled [address] [facility] Test 00:00:00 malignant neoplasm of Medica l Center colon (procedure) [code = 717657253] Future Scheduled [address] [facility] Test 00:00:00 malignant neoplasm of Medica l Center colon (procedure) [code = 813534809] Future Scheduled 1967 [facility]] Medical Cente r Encounters Start End Encounter Admission Attending Care Care Encounter Source Date/Time Date/Time Type Type Clinicians Facility Department ID 2022-11-17 Outpatient TAO SRINIVASAN MDA [id number] 12:15:21 PROVIDER Lauri olivier 2021-08-29 Emergency [facility] [id number] [facility] 21:08:39 ity of [facility] 2020-08-23 Inpatient Tapan Martin [facility] [id number] [facility] 15:14:00 14 [facility] 2019-12-07 Inpatient KYLAH Rodriguez [facility]O [id number] [facility] 10:00:00 Zacarias 32 [facility] 2023-03-12 2023-03-12 Kenya Gastelum 1.2.840.1 [id number] [facility] 11:00:00 11:30:00 Lian Jaramillo 32242.1.1 ity of 3.412.2.7 [place] .3.486867 MD [facility] 2023-03-12 2023-03-12 Outpatient KENYA CARRION MDA, MDA [id number] 10:43:22 10:43:22 Lauri olivier 2023-03-11 2023-03-11 Matias Osullivan2.840.1 [id number] Noel 13:30:00 15:40:13 Lorena 80703.1.1 ity of Kayla 3.412.2.7 [place] .3.283043 MD Soares8 Liane olivier [facility] 2023-03-11 2023-03-11 Outpatient KYLAH HDEZ MDA MDA [id number] 12:16:50 15:40:13 LORENA suarez soy 2023-03-11 2023-03-11 Follow-Up Lemuel 1.2.840.1 [id number] [facility] 11:20:00 12:42:16 Lorena 40333.1.1 ity of Kayla 3.412.2.7 [place] .3.718925 MD Soares8 [facility] 2023-03-11 2023-03-11 Outpatient LEMUEL [facility] MDA [id number] 11:17:21 12:42:[address] [facility] 2023-03-11 2023-03-11 Outpatient KYLAH HDEZ [facility] MDA [id number] 11:07:27 11:16:17 LORENA suarez 2023-03-11 2023-03-11 Travel 1.2.840.1 1.2.569.232 [id number] [facility] 00:00:00 00:00:00 53632.1.1 350.1.13.41 ity of 3.412.2.7 [place].698 [place] .3.428750 084.8 .8 [facility] 2023-03-09 2023-03-09 Telephone Lemuel 1.2.840.1 [id number] [facility] 00:00:00 00:00:00 Lorena 97369.1.1 ity of [place] 3.412.2.7 [place] .3.290142 MD Soares8 [facility] 2023-03-04 2023-03-04 Outpatient KENYA CARRION MDA MDA [id number] 10:57:39 10:57:47 Lauri soy 2023-03-04 2023-03-04 Kenya Gastelum. 1.2.840.1 [id number] [facility] 10:00:00 10:57:47 Lian Jaramillo 89477.1.1 ity of 3.412.2.7 [place] .3.914744 MD Soares8 [facility] 2023-03-04 2023-03-04 OLGA Yost 1.2.840.114 [id number] Univers 00:00:00 00:00:00 Deyanira WILSON 350.1.13.10 it y of [facility] 4.2.7.2.686 Frankie as [id number] [place] [address] Branch 2023-03-04 2023-03-04 Orders Evan, 1.2.840.1 [id number] Univers 00:00:00 00:00:00 Only Miguel Fernandez 19562.1.1 it y of 3.412.2.7 [place] .3.930791 MD Soares8 [facility] 2023-03-04 2023-03-04 Anabell Hdez, 1.2.840.1 [id number] Univers 00:00:00 00:00:00 Only Lorena 94816.1.1 ity of Kayla 3.412.2.7 [place] .3.641137 MD Soares8 [facility] 2023-03-04 2023-03-04 Gala Kwon, 1.2.840.1 [id number] Univers 00:00:00 00:00:00 Tita Mayorga 07346.1.1 ity of 3.412.2.7 [place] .3.288196 MD Soares8 [facility] 2023-03-03 2023-03-03 Outpatient KYLAH HDEZ MDA MDA [id number] MD 12:48:25 13:03:52 LORENA olivier 2023-03-03 2023-03-03 Follow-Up Dee Power, 1.2.840.1 [id number] [facility] 11:40:00 12:57:39 Vaibhav 53344.1.1 ity of 3.412.2.7 [place] .3.294918 .8 [facility] 2023-03-03 2023-03-03 Outpatient EL DEE POWERTAO MDA [id number] 11:20:52 12:57:39 VAIBHAV olivier 2023-03-03 2023-03-03 Rohith Santillan 1.2.840.1 [id number] [facility] 00:00:00 00:00:00 Anumol 47007.1.1 ity of 3.412.2.7 [place] .3.502111 MD Soares8 [facility] 2023-03-03 2023-03-03 Travel 1.2.840.1 1.2.237.001 [id number] Univers 00:00:00 00:00:00 69060.1.1 350.1.13.41 ity of 3.412.2.7 2[place].3.698 [place] .3.531129 084.8 MD Soares8 [facility] 2023-03-02 2023-03-02 Rohith Santillan 1.2.840.1 [id number] Univers 00:00:00 00:00:00 Anumol 26341.1.1 ity of 3.412.2.7 [place] .3.298067 MD Bliar [facility] 2023-02-26 2023-02-26 Telemedici Evan 1.2.840.1 [id number] [facility] 08:30:00 08:56:14 april Fernandez 01073.1.1 it y of 3.412.2.7 [place] .3.083868 MD Blair [facility] 2023-02-26 2023-02-26 Outpatient KYLAH SNYDER MDA MDA [id number] 08:15:26 08:56:14 MIGUEL olivier 2023-02-25 2023-02-25 Outpatient KENYA CARRION MDA, MDA [id number] 11:12:56 11:13:11 Lauri olivier 2023-02-25 2023-02-25 Kenya Gastelum. 1.2.840.1 [id number] [facility] 10:00:00 11:13:11 Lian Jaramillo 74124.1.1 ity of 3.412.2.7 [place] .3.610533 MD Blair [facility] 2023-02-23 2023-02-23 Rohith Sheriff [facility] 1.2.840.114 [id number] Univers 00:00:00 00:00:00 [facility] 350.1.13.10 it y of [place] 4.2.7.2.686 Frankie as JAVIER?BLEA [id number] In mary GOEL [address] [place] [address] MEDICAL OFFICE BUILDING 2023-02-19 2023-02-19 Telephone Letty Lancaster.2.840.1 [id number] Univers 00:00:00 00:00:00 Anthony Benjamin 47955.1.1 ity of 3.412.2.7 [place] .3.831262 .8 Liane [facility] 2023-02-18 2023-02-18 Outpatient EL KENYA AGARWAL MDA [facility] [id number] 10:47:17 10:47:33 Lauri [facility] 2023-02-18 2023-02-18 Nutrition Kenya Agarwal. 1.2.840.1 [id number] [facility] 10:00:00 10:47:33 Lian Jaramillo 18030.1.1 ity of 3.412.2.7 [place] .3.703039 .8 [facility] 2023-02-05 2023-02-16 Inpatient SENECHCHRISTIANO [facility] [id number] 16:49:00 16:40:00 BRYAN, H\\T\\N Suraj WEAVER 2023-02-05 2023-02-16 [facility] 1.2.840.1 [id number] [facility] 16:49:00 16:40:00 [facility] Felisa Rashid 36360.1.1 ity of Romana Guy 3.412.2.7 Amanda Patino .3.044904 Thao Ny V. .8 Derrick Prdao [facility] 2023-02-14 2023-02-14 Inpatient KYLAH ABDI MDA MDA [id number] 11:31:10 12:01:35 KOFI olivier 2023-02-13 2023-02-13 Inpatient KYLAH ABDI MDA MDA [id number] 15:30:24 16:08:06 KOFI olivier 2023-02-12 2023-02-12 Outpatient KENYA CARRION [facility] [id number] 07:00:00 23:59:00 Laurichrissy olivier 2023-02-12 2023-02-12 [facility] Kenya Agarwal 1.2.840.1 [id number] [facility] 07:00:00 23:59:00 Encounter Sarah 22197.1.1 it y of 3.412.2.7 [place] .3.988098 .8 [facility] 2023-02-12 2023-02-12 Outpatient KYLAH LUU [facility] [id number] 16:50:09 16:50:09 WINTER olivier 2023-02-12 2023-02-12 Clinical Luu, 1.2.840.1 [id number] [facility] 16:15:00 16:30:00 Support Winter 83955.1.1 ity of Gini 3.412.2.7 [place] .3.781211 .8 [facility] 2023-02-12 2023-02-12 Documentat Luu, 1.2.840.1 [id number] Univers 00:00:00 00:00:00 ion Winter 72902.1.1 ity of Gini 3.412.2.7 [place] .3.030401 MD Soares8 [facility] 2023-02-12 2023-02-12 Orders Luu, 1.2.840.1 [id number] Univers 00:00:00 00:00:00 Only Winter 62342.1.1 ity of Gini 3.412.2.7 [place] .3.101733 MD Soares8 [facility] 2023-02-12 2023-02-12 Orders Bruce, 1.2.840.1 [id number] Univers 00:00:00 00:00:00 Only Dustin 64854.1.1 ity of 3.412.2.7 [place] .3.504411 MD .8 [facility] 2023-02-10 2023-02-10 Inpatient KENYA AGARWAL MDA MDA [id number] 16:26:42 16:26:45 Lauri o n 2023-02-10 2023-02-10 Inpatient KYLAH ABDI MDA MDA [id number] 11:58:56 12:28:35 KOFI Lauri o n 2023-02-10 2023-02-10 Inpatient KYLAH ABDI MDA MDA [id number] 10:33:31 12:07:35 KOFI Lauri o n 2023-02-10 2023-02-10 [facility] Charla Solis 1.2.840.1 [id number] Univers 00:00:00 00:00:00 Only B 51496.1.1 ity of 3.412.2.7 [place] .3.319186 .8 [facility] 2023-02-09 2023-02-09 Inpatient TRINIDAD MDA MDA [id number] 20:20:46 20:27:48 KOFI Lauri o n 2023-02-08 2023-02-08 Outpatient KENYA AGARWAL MDA MDA [id number] MD 06:00:00 23:59:00 Lauri o n 2023-02-08 2023-02-08 [facility] Kenya Agarwal 1.2.840.1 [id number] Univers 06:00:00 23:59:00 Encounter Y. 43070.1.1 it y of 3.412.2.7 [place] .3.629437 .8 [facility] 2023-02-08 2023-02-08 Inpatient KASIE MDA MDA [id number] 11:08:59 11:38:36 DERRICK Olivier rso soy 2023-02-08 2023-02-08 Inpatient KENYA AGARWAL MDA MDA [id number] 10:14:12 10:14:16 Lauri o n 2023-02-06 2023-02-06 Inpatient THAO OSORIO MDA MDA [id number] 15:39:36 16:04:43 Lauri o n 2023-02-06 2023-02-06 Inpatient THAO OSORIO MDA MDA [id number] 13:24:20 14:51:55 Lauri olivier 2023-02-06 2023-02-06 Inpatient THAO OSORIO MDA MDA [id number] 13:24:15 14:51:51 Lauri olivier 2023-02-06 2023-02-06 Travel 1.2.840.1 1.2.980.690 [id number] [facility] 00:00:00 00:00:00 95558.1.1 350.1.13.41 ity of 3.412.2.7 [place].698 [place] .[place].4076[place] 084.8 .8 [facility] 2023-02-05 2023-02-05 Telephone Dee Power, 1.2.840.1 [id number] [facility] [place] [facility] 00:00:00 00:00:00 Vaibhav 88750.1.1 ity of 3.412.2.7 [place] .3.014966 .8 [facility] 2023-02-04 2023-02-04 Outpatient KYLAH LUU MDA MDA [id number] 11:17:24 12:39:12 WINTER olivier 2023-02-04 2023-02-04 [facility], 1.2.840.1 [id number] [facility] [place] [facility] 09:45:00 12:39:12 Support Winter 25003.1.1 ity of Gini 3.412.2.7 [place] .3.884914 .8 [facility] 2023-02-04 2023-02-04 Outpatient DEE POWER MDA MDA [id number] 12:23:55 12:34:00 VAIBHAV olivier 2023-02-04 2023-02-04 Outpatient KENYA CARRION MDA MDA [id number] 11:16:00 11:43:29 Lauri olivier 2023-02-04 2023-02-04 Follow-Up Dee Power, 1.2.840.1 [id number] Univers 10:40:00 11:00:00 Vaibhav 89761.1.1 ity of 3.412.2.7 [place] .3.209202 MD [facility] 2023-02-04 2023-02-04 Outpatient KYLAH POWER [facility] MDA [id number] [place] 00:00:00 00:00:00 VAIBHAV olivier 2023-02-04 2023-02-04 Travel 1.2.840.1 1.2.731.214 [id number] [facility] [place] [facility] 00:00:00 00:00:00 26822.1.1 350.1.13.41 ity of 3.412.2.7 [place].3.698 [place]3.9558[place] [facility] 2023-02-03 2023-02-03 Outpatient KENYA CARRION [facility] MDA [id number] 14:18:38 14:50:54 Laurichrissy olivier 2023-02-03 [facility]23[facility] 1.2.840.1 [id number] [facility] [place] [facility] 11:00:00 14:13:00 Vaibhav 90702.1.1 ity of 3.412.2.7 [place] .3.786753 MD [facility] 2023-02-03 2023-02-03 [facility] [id number] 10:55:22 14:13:00 VAIBHAV olivier 2023-02-03 2023-02-03 Anabell Hdez, 1.2.840.1 [id number] [facility] 00:00:00 00:00:00 Only Lorena 24151.1.1 ity of Kayla 3.412.2.7 [place] .3.902122 MD Soares8 Liane olivier [facility] 2023-02-03 2023-02-03 Travel 1.2.840.1 1.2.357.667 3917 [id number] [facility] [place] [facility] 00:00:00 00:00:00 00818.1.1 350.1.13.41 ity of 3.412.2.7 [place].3.698 [place] .3.193706 084.8 .8 [facility] 2023-02-02 2023-02-02 Outpatient KENYA CARRION [facility] [id number] 13:32:42 14:29:34 Lauri o n 2023-02-02 2023-02-02 Travel 1.2.840.1 1.2.410.835 1048 [id number] Univers 00:00:00 00:00:00 73348.1.1 350.1.13.41 ity of 3.412.2.7 [place].7.3.698 [place] .3.696716 084.8 .8 [facility] 2023-01-26 2023-02-01 [facility] [id number] 16:06:00 18:28:00 SAURABH, H\\T\\N Suraj olivier 2023-01-26 2023-02-01 [facility] 1.2.840.1 [id number] [facility] 16:06:00 18:28:00 [facility] Jad Patel 06000.1.1 ity of Amanda Proctor 3.412.2.7 T Jaycee Castillo .3.585079 Brock Quijano .8 [facility] 2023-02-01 2023-02-01 Inpatient KENYA CARRION [facility] [id number] 15:12:03 15:12:06 Lauri o n 2023-01-31 2023-01-31 Refill Rohan 1.2.840.1 [id number] Univers 00:00:00 00:00:00 Glenda Peñaloza 35472.1.1 i ty of 3.412.2.7 [place] .3.489253 .8 [facility] 2023-01-29 2023-01-29 Inpatient EL TK [facility] [id number] 12:45:23 14:59:56 Suraj DESHPANDE 2023-01-28 2023-01-28 Telephone Castillo, 1.2.840.1 [id number] [id number] Univers 00:00:00 00:00:00 Felisa M 94442.1.1 ity of 3.412.2.7 [place] .3.578500 MD Soares8 [facility] 2023-01-28 2023-01-28 Orders Hdez, 1.2.840.1 [id number] Univers 00:00:00 00:00:00 Only Lorena 63555.1.1 ity of Kayla 3.412.2.7 [place] .3.080186 MD Blair [facility] 2023-01-27 2023-01-27 Inpatient KYLAH HANCOCK MDA MDA [id number] 17:00:08 17:15:25 PARK olivier 2023-01-27 2023-01-27 Inpatient KENYA CARRION MDA [facility] [id number] 16:29:18 16:29:21 Laurichrissy olivier 2023-01-26 2023-01-26 Travel 1.2.840.1 1.2.720.066 6911 [id number] Univers 00:00:00 00:00:00 72086.1.1 350.1.13.41 ity of 3.412.2.7 [place].7.3.698 [place] .3.499352 084.8 MD Blair [facility] 2023-01-26 2023-01-26 Telephone Castillo, 1.2.840.1 [id number] Univers 00:00:00 00:00:00 Felisa Costa 41826.1.1 ity of 3.412.2.7 [place] .3.067698 MD Blair [facility] 2023-01-26 2023-01-26 Telephone Castillo, 1.2.840.1 [id number] [id number] Univers 00:00:00 00:00:00 Felisa Costa 16668.1.1 ity of 3.412.2.7 [place] .3.843598 MD Blair [facility] 2023-01-25 2023-01-25 Outpatient KENYA CARRION MDA MDA [id number] 06:00:00 23:59:00 [facility] 2023-01-25 2023-01-25 [facility] Kenya Agarwal 1.2.840.1 [id number] Univers 06:00:00 23:59:00 Encounter Y. 89127.1.1 it y of 3.412.2.7 [place] .3.588299 MD Soares8 [facility] 2023-01-25 2023-01-25 Outpatient KENYA CARRION MDA MDA [id number] 12:09:12 12:09:30 [facility] 2023-01-25 2023-01-25 [facility] Kenya Agarwal. 1.2.840.1 [id number] [facility] [place] [facility] 11:30:00 12:09:30 Lian Jaramillo 42689.1.1 ity of 3.412.2.7 [place] .3.234073 MD Soares8 [facility] 2023-01-25 2023-01-25 Telephone Castillo, 1.2.840.1 [id number] [facility] 00:00:00 00:00:00 Felisa Costa 70740.1.1 ity of 3.412.2.7 [place] .3.803907 MD Soares8 [facility] 2023-01-22 2023-01-22 Outpatient KENYA CARRION [facility] MDA [id number] 14:08:15 14:37:49 Lauri [facility] 2023-01-22 2023-01-22 Outpatient KENYA CARRION [facility] MDA [id number] 13:09:00 13:09:10 [facility] 2023-01-22 2023-01-22 [facility] Kenya AgarwalRodger 1.2.840.1 [id number] [facility] 10:30:00 13:09:10 Lian Jaramillo 35409.1.1 ity of 3.412.2.7 [place] .3.870007 MD Soares8 [facility] 2023-01-22 2023-01-22 Travel 1.2.840.1 1.2.489.997 0864 [id number] Univers 00:00:00 00:00:00 98546.1.1 350.1.13.41 ity of 3.412.2.7 2.2.7.3.698 [place] .3.527435 084.8 MD [facility] olivier [facility] 2023-01-21 2023-01-21 Outpatient KYLAH HDEZ [facility] MDA [id number] 09:25:31 14:45:37 LORENA suarez 2023-01-21 2023-01-21 Infusion Lemuel, 1.2.840.1 [id number] [facility] [place] [facility] 08:45:00 14:45:37 Lorena 93421.1.1 ity of Kayla 3.412.2.7 [place] .3.222905 MD [facility] 2023-01-21 2023-01-21 Outpatient KENYA CARRION [facility] [id number] 13:30:26 14:05:07 Lauri oliiver 2023-01-21 2023-01-21 Outpatient KYLAH POWER [facility] MDA [id number] 08:11:54 09:18:40 VAIBHAV olivier 2023-01-21 2023-01-21 Follow-Up Dee Power, 1.2.840.1 [id number] [facility] 08:00:00 09:18:40 Vaibhav 27616.1.1 ity of 3.412.2.7 [place] .3.809250 MD [facility]velin olivier [facility] 2023-01-21 2023-01-21 Travel 1.2.840.1 1.2.763.836 [id number] Univers 00:00:00 00:00:00 00301.1.1 350.1.13.41 ity of 3.412.2.7 2.2.7.3.698 [place] .3.930749 084.8 MD Johnnie olivier [facility] 2023-01-20 2023-01-20 Outpatient KENYA CARRION [facility] MDA [id number] 12:58:49 13:48:03 Lauri olivier 2023-01-20 2023-01-20 Outpatient EL BRIANNASHAMARSURAJNANDINI [facility] MDA [id number] 11:28:20 12:57:27 A, Lauri jaramillo BANDARJOY soy I 2023-01-20 2023-01-20 Consult Coreyjaynenandini 1.2.840.1 [id number] [facility] [place] [facility] 11:20:00 12:57:27 a, 34100.1.1 ity of [place]en[place]2.7 [place] .3.060365 MD Soares8 [facility] 2023-01-20 2023-01-20 Outpatient KYLAH HDEZ [facility] MDA [id number] 12:44:37 12:57:03 LORENA olivier 2023-01-20 2023-01-20 Documentat Nabil, 1.2.840.1 [id number] [facility] 00:00:00 00:00:00 ion Nereida Johnston 51458.1.1 it y of 3.412.2.7 [place] .3.993082 .8 [facility] 2023-01-20 2023-01-20 Travel 1.2.840.1 1.2.439.403 1430 [id number] Univers 00:00:00 00:00:00 90774.1.1 350.1.13.41 ity of 3.412.2.7 2.[place].7.3.698 [place] .3.174781 084.8 .8 [facility] 2023-01-19 2023-01-19 [facility], 1.2.840.1 [id number] [facility] 15:30:00 16:24:21 Support Winter 87719.1.1 ity of Gini 3.412.2.7 [place] .3.375269 MD Soares8 [facility] 2023-01-19 2023-01-19 Outpatient KYLAH LUU MDA MDA [id number] 14:40:53 16:24:21 WINTER olivier 2023-01-19 2023-01-19 Outpatient KENYA CARRION [facility] MDA [id number] 14:39:40 15:15:48 Lauri o soy 2023-01-19 2023-01-19 Outpatient R JAZIEL, [facility] [id number] Univers 09:00:00 09:00:00 NEREIDA ity of [facility] 2023-01-19 2023-01-19 Travel 1.2.840.1 1.2.789.113 0488 [id number] [facility] [place] [facility] 00:00:00 00:00:00 91398.1.1 350.1.13.41 ity of 3.412.2.7 2.2.7.3.698 [place] .3.255453 084.8 .8 [facility] 2023-01-11 2023-01-18 Inpatient ER OVI, TAO [facility] [id number] 19:31:00 19:34:00 BROCK H\\T\\N Lauri olivier 2023-01-11 2023-01-18 [facility] 1.2.840.1 [id number] [facility] [place] [facility] 19:31:00 19:34:00 Encounter Roberto Carlos Walsh 04879.1.1 ity of [facility] 3.412.2.7 [facility] .3.623173 Brock Quijano .8 [facility] 2023-01-17 2023-01-18 Inpatient EL JAYATAO Costa MDA [id number] 23:34:01 00:08:34 BROCK olivier 2023-01-15 2023-01-15 Outpatient R RADIOLOGY [facility] [id number] Univers 10:00:00 10:00:00 ity of [facility] 2023-01-14 2023-01-14 Inpatient EL TAO AGRAWAL MDA [id number] 13:45:42 14:35:12 BROCK olivier 2023-01-14 2023-01-14 Inpatient EL KENYA AGARWAL MDA MDA [id number] 10:28:01 10:28:06 Lauri olivier 2023-01-14 2023-01-14 Letty Beck.2.840.1 [id number] Univers 00:00:00 00:00:00 Only Mukund 73076.1.1 [place] of [place]2.7 [place] .3.950191 [place] Soares8 [facility] 2023-01-13 2023-01-13 Inpatient KYLAH AGRAWAL TAO MDA [id number] MD 18:17:55 18:32:15 [facility] 2023-01-12 2023-01-12 Inpatient KENYA CARRION TAO [facility] [id number] 16:36:56 16:36:59 [facility] 2023-01-12 2023-01-12 Refill Meche, 1.2.840.1 [id number] Univers 00:00:00 00:00:00 Cerena 57432.1.1 ity of 3.412.2.7 [place] .3.294770 MD Soares8 [facility] 2023-01-11 2023-01-11 Travel 1.2.840.1 1.2.297.541 [id number] Univers 00:00:00 00:00:00 11459.1.1 350.1.13.41 ity of 3.412.2.7 2.[place].7.3.698 [place] .3.432161 084.8 MD Soares8 [facility] 2023-01-11 2023-01-11 Telephone Jonathan, 1.2.840.1 [id number] Univers 00:00:00 00:00:00 Felisa M 24182.1.1 ity of 3.412.2.7 [place] .3.209762 MD Soares8 [facility] 2023-01-08 2023-01-08 Outpatient KYLAH AGARWALMANUELKENYA MDA [facility] [id number] 13:23:30 14:05:33 Lauri o soy 2023-01-08 2023-01-08 Outpatient KYLAH AGARWALMANUELKENYAVINEET BURGER MDA [id number] 10:44:05 10:47:33 Lauri soy 2023-01-08 2023-01-08 Kenya Gastelum 1.2.840.1 [id number] Univers 10:00:00 10:47:33 Lian Jaramillo 27550.1.1 ity of 3.412.2.7 [place] .3.918231 MD Soares8 [facility] 2023-01-08 2023-01-08 Travel 1.2.840.1 1.2.756.658 4093 [id number] Univers 00:00:00 00:00:00 41184.1.1 350.1.13.41 ity of 3.412.2.7 2.[place].7.3.698 [place] .3.533871 084.8 MD Soares8 [facility] 2023-01-07 2023-01-07 Outpatient KYLAH HDEZ MDA MDA [id number] 09:44:12 13:58:13 LORENA olivier 2023-01-07 2023-01-07 Infusion Lemuel 1.2.840.1 [id number] [facility] 09:00:00 13:58:13 Lorena 89956.1.1 ity of Kayla 3.412.2.7 [place] .3.795820 MD Blair [facility] 2023-01-07 2023-01-07 Outpatient KYLAH HDEZ MDA MDA [id number] 09:11:47 09:41:57 LORENA olivier 2023-01-07 2023-01-07 Follow-Up Lemuel 1.2.840.1 [id number] [facility] 08:40:00 09:41:57 Lorena 04410.1.1 ity of Kayla 3.412.2.7 [place] .3.109759 MD Soares8 [facility] 2023-01-07 2023-01-07 Outpatient KENYA CARRION MDA MDA [id number] 09:08:41 09:08:41 Lauri olivier 2023-01-07 2023-01-07 Outpatient KYLAH HDEZ MDA MDA [id number] 08:18:38 08:32:37 LORENA olivier 2023-01-07 2023-01-07 Travel 1.2.840.1 1.2.141.228 1159 [id number] Univers 00:00:00 00:00:00 10576.1.1 350.1.13.41 ity of 3.412.2.7 2.[place].7.3.698 [place] .3.907215 084.8 .8 [facility] 2023-01-06 2023-01-06 Outpatient KENYA CARRION [facility] [id number] 14:37:02 14:59:48 [facility] 2023-01-06 2023-01-06 Infusion Hdez, 1.2.840.1 [id number] [facility] [place] [facility] 11:00:00 13:00:00 Lorena 63317.1.1 ity of Kayla 3.412.2.7 [place] .3.935080 MD Soares8 [facility] 2023-01-06 2023-01-06 Outpatient KYLAH HDEZ MDA [facility] [id number] [place] 11:19:03 11:19:[address] [facility] 2023-01-06 2023-01-06 Travel 1.2.840.1 1.2.497.965 4943 [id number] [facility] [place] [facility] 00:00:00 00:00:00 42796.1.1 350.1.13.41 ity of 3.412.2.7 2.[place].7.3.698 [place] .3.823229 084.8 MD Soares8 [facility] 2023-01-05 2023-01-05 Outpatient KENYA CARRION [facility] [id number] 13:16:48 13:59:03 [facility] 2023-01-05 2023-01-05 Travel 1.2.840.1 1.2.382.658 [id number] [id number] Univers 00:00:00 00:00:00 97342.1.1 350.1.13.41 ity of 3.412.2.7 2.2.7.3.698 [place] .3.785652 084.8 MD Soares8 [facility] 2023-01-04 2023-01-04 Infusion Hdez, 1.2.840.1 [id number] [facility] 10:45:00 14:51:21 Lorena 99153.1.1 ity of [place] 3.412.2.7 [place] .3.006858 MD Soares8 [facility] 2023-01-04 2023-01-04 Outpatient KYLAH HDEZ TAO MDA [id number] 10:34:27 14:51:21 LORENA olivier 2023-01-04 2023-01-04 [facility], 1.2.840.1 [id number] [facility] 14:00:00 14:25:20 Support Winter 20227.1.1 ity of [place] 3.412.2.7 [place] .3.188207 MD Soares8 [facility] 2023-01-04 2023-01-04 Outpatient KYLAH LUU MDA MDA [id number] 13:10:34 14:25:20 WINTER jaramillo 2023-01-04 2023-01-04 Outpatient KENYA CARRION [facility] MDA [id number] 13:10:05 13:43:01 Lauri olivier 2023-01-04 2023-01-04 Travel 1.2.840.1 1.2.411.920 5638 [id number] [facility] [place] [facility] 00:00:00 00:00:00 66883.1.1 350.1.13.41 ity of 3.412.2.7 2.[place].7.3.698 [place] .3.229724 084.8 .8 [facility] 2023-01-01 2023-01-01 Outpatient KYLAH HDEZ [facility] MDA [id number] 09:22:35 14:20:57 LORENA olivier 2023-01-01 2023-01-01 Infusion Lemuel, 1.2.840.1 [id number] [facility] 09:00:00 14:20:57 Lorena 88904.1.1 ity of Kayla 3.412.2.7 [place] .3.019659 MD Soares8 [facility] 2023-01-01 2023-01-01 Outpatient KENYA CARRION [facility] [id number] 13:31:26 14:06:59 Lauri olivier 2023-01-01 2023-01-01 Follow-Up Dee Power, 1.2.840.1 [id number] [facility] 08:40:00 09:31:03 Vaibhav 42106.1.1 ity of 3.412.2.7 [place] .3.825647 MD Blair [facility] 2023-01-01 2023-01-01 Outpatient EL DEE POWER, [facility] MDA [id number] 08:28:44 09:31:03 VAIBHAV olivier 2023-01-01 2023-01-01 Outpatient KYLAH HDEZ [facility] [id number] 08:19:22 08:27:50 LORENA olivier 2023-01-01 2023-01-01 Rohith Guardado, 1.2.840.1 [id number] Univers 00:00:00 00:00:00 Brittni Benjamin 57689.1.1 ity of 3.412.2.7 [place] .3.772253 MD Blair [facility] 2023-01-01 2023-01-01 Travel 1.2.840.1 1.2.071.475 9358 [id number] Univers 00:00:00 00:00:00 49812.1.1 350.1.13.41 ity of 3.412.2.7 2.2.7.3.698 [place] .3.419997 084.8 MD Blair [facility] 2022-12-31 2022-12-31 Gala Kwon, 1.2.840.1 [id number] Univers 00:00:00 00:00:00 Tita Mayorga 03177.1.1 ity of 3.412.2.7 [place] .3.819630 MD Blair [facility] 2022-12-31 2022-12-31 Anabell Hdez 1.2.840.1 [id number] Univers 00:00:00 00:00:00 Only Lorena 66025.1.1 ity of Kayla 3.412.2.7 [place] .3.753855 .8 [facility] 2022-12-30 2022-12-30 Outpatient SNYDER, [facility] [id number] 09:33:09 23:59:00 MIGUEL olivier 2022-12-30 2022-12-30 [facility], 1.2.840.1 [id number] [facility] 09:33:09 23:59:00 Encounter Miguel Fernandez 74635.1.1 ity of 3.412.2.7 [place] .3.295583 .8 [facility] 2022-12-30 2022-12-30 Outpatient KENYA CARRION [facility] [id number] 13:48:18 14:15:54 Lauri olivier 2022-12-30 2022-12-30 Travel 1.2.840.1 1.2.919.684 1399 [id number] [facility] 00:00:00 00:00:00 92256.1.1 350.1.13.41 ity of 3.412.2.7 2.2.7.3.698 [place] .3.576571 084.8 .8 [facility] 2022-12-29 2022-12-29 Outpatient CORINNESTANISLAW [facility] [id number] 08:00:00 23:59:00 SUZANNE olivier 2022-12-29 2022-12-[address] [facility], 1.2.840.1 [id number] [facility] 08:00:00 23:59:00 Nando Palacios 08640.1.1 it y of 3.412.2.7 [place] .3.145963 .8 [facility] 2022-12-29 2022-12-29 Outpatient KENYA CARRION [facility] [id number] 13:04:30 13:32:42 Lauri olivier 2022-12-29 2022-12-29 Travel 1.2.840.1 1.2.529.739 [id number] [facility] 00:00:00 00:00:00 96093.1.1 350.1.13.41 ity of 3.412.2.7 2.2.7.3.698 [place] .3.403318 084.8 MD Soares8 [facility] 2022-12-28 2022-12-28 Clinical Luu, 1.2.840.1 [id number] Univers 14:00:00 15:17:09 Support Winter 31768.1.1 ity of Gini 3.412.2.7 [place] .3.170596 MD Soares8 [facility] 2022-12-28 2022-12-28 Outpatient LUU, TAO MDA [id number] 13:27:51 15:17:09 WINTER olivier 2022-12-28 2022-12-28 Outpatient MANUEL CARRIONLEY [facility] [id number] 13:27:37 14:08:09 Lauri o soy 2022-12-28 2022-12-28 Outpatient MANUEL CARRIONLEY [facility] [id number] 10:52:43 10:53:45 [facility] 2022-12-28 2022-12-28 [facility] [place] Agarwal. 1.2.840.1 [id number] [facility] 10:00:00 10:53:45 Lian Jaramillo 94631.1.1 ity of 3.412.2.7 [place] .3.805940 MD [facility] 2022-12-28 2022-12-28 Travel 1.2.840.1 1.2.926.643 [id number] [facility] 00:00:00 00:00:00 94288.1.1 350.1.13.41 ity of 3.412.2.[place] .3.308[place] 084.8 MD oSares8 [facility] 2022-12-25 2022-12-25 Outpatient KENYA CARRION [facility] [id number] 14:06:37 15:08:07 Lauri o soy 2022-12-25 2022-12-25 Travel 1.2.840.1 1.2.637.475 [id number] [facility] 00:00:00 00:00:00 31042.1.1 350.1.13.41 ity of 3.412.2.[place] .3.614807 084.8 .8 Liane [facility] 2022-12-24 2022-12-24 Outpatient KYLAH HDEZ [facility] [id number] 10:13:08 15:46:35 LORENA olivier 2022-12-24 2022-12-24 Dwayne Hdez, 1.2.840.1 [id number] [facility] 08:45:00 15:46:35 Lorena 82949.1.1 ity of Kayla 3.412.2.7 [place] .3.691993 .8 [facility]22-12-24 Outpatient KYLAH AGARWALKENYA [facility] [id number] 13:51:59 14:40:52 Lauri olivier 2022-12-24 2022-12-24 Outpatient KYLAH POWER [facility] [id number] 09:29:58 10:15:28 C[place] olivier 2022-12-24 2022-12-24 Follow-Up Dee Power 1.2.840.1 [id number] [facility] 08:20:00 10:15:28 Vaibhav 12586.1.1 ity of 3.412.2.7 [place] .3.126024 .8 [facility] 2022-12-24 2022-12-24 Outpatient KYLAH HDEZ [facility] [id number] 09:15:48 09:27:18 LORENA olivier 2022-12-24 2022-12-24 Rohith Sheriff [facility] 1.2.840.114 [id number] Univers 00:00:00 00:00:00 Beauty Booked 350.1.13.10 it y of [place] 4.2.7.2.686 Frankie as JAVIER?BLEA [id number] [address] MEDICAL OFFICE [facility]ILD[facility] 2022-12-24 2022-12-24 Telephone Jonathan 1.2.840.1 [id number] [facility] 00:00:00 00:00:00 Felisa Costa 06539.1.1 ity of 3.412.2.7 [place] .3.423982 MD [facility] 2022-12-24 2022-12-24 Telephone [place] Agarwal 1.2.840.1 [id number] [facility] 00:00:00 00:00:00 Henri. 90430.1.1 ity of 3.412.2.7 [place] .3.302607 MD [facility] 2022-12-24 2022-12-24 Telephone Doyle, 1.2.840.1 [id number] Univers 00:00:00 00:00:00 Tita Mayorga 62043.1.1 ity of 3.412.2.7 [place] .3.719929 MD [facility] 2022-12-24 2022-12-24 Telephone Doyle, 1.2.840.1 [id number] [facility] 00:00:00 00:00:00 Tita Mayorga 79976.1.1 ity of 3.412.2.7 [place] .3.483466 MD [facility] 2022-12-24 2022-12-24 Telephone Dee Power, 1.2.840.1 [id number] Univers 00:00:00 00:00:00 Vaibhav 68566.1.1 ity of 3.412.2.7 [place] .3.403055 MD [facility] 2022-12-24 2022-12-24 Travel 1.2.840.1 1.2.437.997 [id number] [facility] 00:00:00 00:00:00 87895.1.1 350.1.13.41 ity of 3.412.2.7 [place].3.698 [place] .3.029880 084.8 MD [facility] 2022-12-24 2022-12-24 Orders Dee Power, 1.2.840.1 [id number] [facility] 00:00:00 00:00:00 Only Vaibhav 40216.1.1 ity of 3.412.2.7 [place] .3.153351 [facility] 2022-12-23 2022-12-23 Outpatient KYLAH SANDERSLacho [facility] [id number] 09:30:00 23:59:00 OTILIA olivier 2022-12-23 2022-12-23 [facility] 1.2.840.1 [id number] [facility] [place] [facility] 09:30:00 23:59:00 Encounter Otilia 96093.1.1 it y of 3.412.2.7 [place] .3.690920 MD [facility] 2022-12-23 2022-12-23 Outpatient KYLAH AGARWAL KENYA [facility] [id number] 13:50:34 14:48:40 Lauri [facility] 2022-12-23 2022-12-23 Outpatient JUS [facility] [id number] 11:52:19 11:52:19 WINTER olivier 2022-12-23 2022-12-23 [facility] Winter Luu 1.2.840.7 [id number] [facility] [place] [facility] 10:15:00 10:30:00 Support Dony Calhoun 63153.1.1 ity of 3.412.2.7 [place] .3.992232 MD [facility] 2022-12-23 2022-12-23 Travel 1.2.840.1 1.2.916.438 2329 [id number] [facility] [place] [facility] 00:00:00 00:00:00 47980.1.1 350.1.13.41 ity of 3.412.2.7 2.[place].7.3.698 [place] .3.153160 084.8 MD [facility] 2022-12-23 2022-12-23 Anabell Hdez, 1.2.840.1 [id number] Univers 00:00:00 00:00:00 Only Lorena 25514.1.1 ity of Kayla 3.412.2.7 [place] .3.896994 .8 [facility] 2022-12-23 2022-12-23 Documentat Luu, 1.2.840.1 [id number] Univers 00:00:00 00:00:00 jennifer Max 60286.1.1 ity of Gini 3.412.2.7 [place] .3.178456 .8 [facility] 2022-12-23 2022-12-23 Telephone Dee Power, 1.2.840.1 [id number] Univers 00:00:00 00:00:00 Celramona 38865.1.1 ity of 3.412.2.7 [place] .3.267733 .8 [facility] 2022-12-23 2022-12-23 Telephone Doyle, 1.2.840.1 [id number] 1103 [id number] Univers 00:00:00 00:00:00 Tita Mayorga 54172.1.1 ity of 3.412.2.7 [place] .3.679373 MD Soares8 [facility] 2022-12-18 2022-12-18 Anabell Antony, 1.2.840.1 [id number] 76076 Univers 00:00:00 00:00:00 Only Lindy 70870.1.1 ity of Meg 3.412.2.7 [place] .3.755436 .8 [facility] 2022-12-18 2022-12-18 Anabell Antony, 1.2.840.1 [id number] Univers 00:00:00 00:00:00 Only Lindy 44272.1.1 ity of Meg 3.412.2.7 [place] .3.666362 MD Soares8 [facility] 2022-12-17 2022-12-17 Outpatient EL KENYA AGARWAL MDA, MDA [id number] 08:36:51 10:48:06 [facility] 2022-12-17 2022-12-17 Kenya Osullivan 1.2.840.1 [id number] Univers 08:00:00 10:48:06 Support Maria Luz Cochran 55713.1.1 ity of 3.412.2.7 [place] .3.865127 MD Soares8 [facility] 2022-12-17 2022-12-17 Outpatient CARRAWAY [facility] [id number] 08:37:01 10:43:17 WINTER Lauri o soy 2022-12-17 2022-12-17 Documentat [place], 1.2.840.1 [id number] Univers 00:00:00 00:00:00 ion Winter 35686.1.1 ity of Gini 3.412.2.7 [place] .3.877544 MD Soares8 [facility] 2022-12-17 2022-12-17 Documentat [place], 1.2.840.1 [id number] Univers 00:00:00 00:00:00 jennifer Max 92543.1.1 ity of Gini 3.412.2.7 [place] .3.844317 MD [facility] 2022-12-17 2022-12-17 Documentat [place], 1.2.840.1 [id number] Univers 00:00:00 00:00:00 ion Winter 21971.1.1 ity of Gini 3.412.2.7 [place] .3.187914 MD [facility] 2022-12-17 2022-12-17 [facility], 1.2.840.1 [id number] Univers 00:00:00 00:00:00 Only Lorena 61368.1.1 ity of Kayla 3.412.2.7 [place] .3.656463 MD [facility] 2022-12-17 2022-12-17 Travel 1.2.840.1 1.2.325.645 3165 [id number] Univers 00:00:00 00:00:00 67840.1.1 350.1.13.41 ity of 3.412.2.7 2.2.7.3.698 [place] .3.937198 084.8 MD .8 [facility] 2022-12-17 2022-12-17 Orders Luu, 1.2.840.1 [id number] Univers 00:00:00 00:00:00 Only Winter 52799.1.1 ity of Gini 3.412.2.7 [place] .3.255278 MD Soares8 [facility] 2022-12-16 2022-12-16 Orders Luu, 1.2.840.1 [id number] Univers 00:00:00 00:00:00 Only Winter 64700.1.1 ity of Gini 3.412.2.7 [place] .3.907029 MD Soares8 [facility] 2022-12-16 2022-12-16 Telephone Jonathan, 1.2.840.1 [id number] 1102 [id number] Univers 00:00:00 00:00:00 Felisa M 54789.1.1 ity of 3.412.2.7 [place] .3.258217 MD Soares8 [facility] 2022-12-16 2022-12-16 Telephone Rosmery Dickinson 1.2.840.1 [id number] 1 [id number] Univers 00:00:00 00:00:00 M 88018.1.1 ity of 3.412.2.7 [place] .3.297224 MD [facility] 2022-12-15 2022-12-15 Inpatient EL KENYA AGARWAL MDA [facility] [id number] 08:42:55 23:59:00 Lauri o 2022-12-15 2022-12-15 [facility] Kenya Agarwal 1.2.840.1 [id number] [facility] [place] [facility] 08:42:55 23:59:00 Encounter Y. 35115.1.1 it y of 3.412.2.7 [place] .3.031406 MD [facility] 2022-12-09 2022-12-15 Inpatient UR MECHE, TAO [facility] [id number] MD 21:01:00 19:30:00 CERENA H\\T\\N Lauri o n 2022-12-09 2022-12-15 [facility] Mer Milian 1.2.840.1 [id number] Univers 21:01:00 19:30:00 Encounter Roberto Carlos Walsh 62048.1.1 ity of Abelino Rajput-Izzy 3.412.2.7 [place] EdsonGraciela champion .3.951296 Jaycee Muñoz .8 Liane Lopez, Travis Gill, Derrick Cancer Mcgregor, Cerena Ce nter 2022-12-15 2022-12-15 Outpatient KYLAH BAI [facility] MDA [id number] 08:39:37 15:02:22 RON olivier 2022-12-15 2022-12-15 Inpatient KYLAH DAVIS [facility] MDA [id number] MD 09:34:01 10:58:12 FAREED olivier 2022-12-15 2022-12-15 Refmaddie Antony, 1.2.840.1 [id number] Univers 00:00:00 00:00:00 Lindy 21890.1.1 ity of Meg 3.412.2.7 [place] .3.425442 .8 [facility] 2022-12-15 2022-12-15 Orders Koyyalagunt 1.2.840.1 [id number] Univers 00:00:00 00:00:00 Only a, 70075.1.1 ity of [place].412.2.7 [place] .3.466899 MD Soares8 [facility] 2022-12-15 2022-12-15 Orders Koyyalagunt 1.2.840.1 [id number] Univers 00:00:00 00:00:00 Only a, 75857.1.1 ity of [place]2.7 [place] .3.203129 MD Soares8 [facility] 2022-12-15 2022-12-15 Orders Razmandi, 1.2.840.1 [id number] 1102 [id number] Univers 00:00:00 00:00:00 Only Maya 70089.1.1 ity of 3.412.2.7 [place] .3.444526 MD [facility] 2022-12-15 2022-12-15 Ophross Megan Dawson, 1.2.840.1 [id number] 1 [id number] Univers 00:00:00 00:00:00 Maya 55116.1.1 ity of 3.412.2.7 [place] .3.549391 MD [facility] 2022-12-14 2022-12-14 Inpatient KYLAH TONNY KENYA [facility] MDA [id number] 17:21:25 17:21:31 [facility] 2022-12-14 2022-12-14 Anabell Soliz, 1.2.840.1 [id number] Univers 00:00:00 00:00:00 Only Wilder 75536.1.1 ity of 3.412.2.7 [place] .3.898318 MD [facility] 2022-12-11 2022-12-11 Inpatient KYLAH TONNY KENYA [facility] MDA [id number] 11:49:45 11:49:48 [facility] 2022-12-11 2022-12-11 Telephone Jason, 1.2.840.1 [id number] [id number] Univers 00:00:00 00:00:00 Maridel P 06910.1.1 it y of 3.412.2.7 [place] .3.348502 MD [facility] 2022-12-10 2022-12-10 Travel 1.2.840.1 1.2.076.559 2027 [id number] Univers 00:00:00 00:00:00 15548.1.1 350.1.13.41 ity of 3.412.2.7 2.2.7.3.698 [place] .3.969810 084.8 MD [facility] 2022-12-10 2022-12-10 Anabell Soliz, 1.2.840.1 [id number] Univers 00:00:00 00:00:00 Only Wilder 31095.1.1 ity of 3.412.2.7 [place] .3.807923 MD Soares8 [facility] 2022-12-08 2022-12-08 Telephone Quitaque, 1.2.840.1 [id number] [id number] Univers 00:00:00 00:00:00 Lindy 20044.1.1 ity of Meg 3.412.2.7 [place] .3.890948 MD Soares8 [facility] 2022-12-08 2022-12-08 [facility], 1.2.840.1 [id number] Univers 00:00:00 00:00:00 Only Lorena 72326.1.1 ity of Kayla 3.412.2.7 [place] .3.776082 MD Soares8 [facility] 2022-12-05 2022-12-05 Telephone [place], 1.2.840.1 [id number] 1102 [id number] Univers 00:00:00 00:00:00 Winter 77918.1.1 ity of Gini 3.412.2.7 [place] .3.811863 MD Soares8 [facility] 2022-12-05 2022-12-05 [facility], 1.2.840.1 [id number] Univers 00:00:00 00:00:00 Only Winter 04334.1.1 ity of Gini 3.412.2.7 [place] .3.006730 MD Soares8 [facility] 2022-12-04 2022-12-04 Outpatient TAO HDEZ MDA [id number] 10:55:00 23:59:00 LORENA olivier 2022-12-04 2022-12-04 [facility] Matthew Benitez 1.2.840 .1 [id number] [facility] [place] [facility] 10:55:00 23:59:00 Lorena Corrales 64799.1.1 ity of 3.412.2.7 [place] .3.160927 MD Soares8 [facility] 2022-12-04 2022-12-04 Telephone Antonella, 1.2.840.1 [id number] 11 [id number] Univers 00:00:00 00:00:00 Red Costa 82995.1.1 it y of 3.412.2.7 [place] .3.146850 MD Soares8 [facility] 2022-12-04 2022-12-04 Multidisci Diazhenri, 1.2.840.1 [id number] 1 [id number] Univers 00:00:00 00:00:00 plinary Red Costa 52379.1.1 it y of Visit 3.412.2.7 [place] .3.475266 MD Soares8 [facility] 2022-12-04 2022-12-04 Telephone Dimas, 1.2.840.1 [id number] 11 [id number] Univers 00:00:00 00:00:00 Maria Luz Lund 56080.1.1 ity of 3.412.2.7 [place] .3.915882 .8 [facility] 2022-12-02 2022-12-02 Orders Lan, 1.2.840.1 [id number] [id number] Univers 00:00:00 00:00:00 Only Lindy 94458.1.1 ity of Meg 3.412.2.7 [place] .3.986127 MD Soares8 [facility] 2022-12-02 2022-12-02 Orders Jus, 1.2.840.1 [id number] Univers 00:00:00 00:00:00 Only Winter 77273.1.1 ity of Gini 3.412.2.7 [place] .3.485310 MD Soarse8 [facility] 2022-11-30 2022-11-30 Jacob Hdez 1.2.840.1 [id number] [id number] Univers 08:15:00 10:00:00 Procedure Lorena 16372.1.1 i ty of Kayla 3.412.2.7 [place] .3.842315 MD Soares8 [facility] 2022-11-30 2022-11-30 Outpatient KYLAH HDEZ MDA MDA [id number] 08:45:57 08:45:57 LORENA olivier 2022-11-30 2022-11-30 Travel 1.2.840.1 1.2.512.591 1826 [id number] Univers 00:00:00 00:00:00 28206.1.1 350.1.13.41 ity of 3.412.2.7 2.2.7.3.698 [place] .3.030899 084.8 .8 [facility] 2022-11-27 2022-11-27 Ancillary Lan, 1.2.840.1 [id number] [facility] [place] [facility] 12:00:00 14:30:00 Procedure Lindy 06850.1.1 it y of Meg 3.412.2.7 [place] .3.230363 MD [facility] 2022-11-27 2022-11-27 Outpatient KYLAH ANTONY MDA MDA [id number] 12:21:28 12:21:28 LINDY olivier 2022-11-27 2022-11-27 Travel 1.2.840.1 1.2.583.016 7602 [id number] Univers 00:00:00 00:00:00 75808.1.1 350.1.13.41 ity of 3.412.2.7 2.2.7.3.698 [place] .3.079984 084.8 MD Soares8 [facility] 2022-11-26 2022-11-26 Office CARIE Myers 1.2.840.114 [id number] [facility] 14:30:00 15:00:00 Visit Tracey AMBULATOR 350.1.13.21 College Y 0.2.7.2.686 of 831.9950628 Medi patsy 810 e 2022-11-26 2022-11-26 Outpatient KYLAH HDEZ MDA MDA [id number] 13:07:20 13:20:48 LORENA olivier 2022-11-26 2022-11-26 Outpatient KYLAH POWER MDA MDA [id number] 11:48:23 13:02:56 VAIBHAV olivier 2022-11-262022-11-26 Consult Dee Power, 1.2.840.1 [id number] Univers 11:00:00 13:02:56 Vaibhav 28262.1.1 ity of 3.412.2.7 [place] .3.726716 MD [facility] 2022-11-26 2022-11-26 Consult Luu, 1.2.840.1 [id number] Univers 10:00:00 11:43:01 Winter 43178.1.1 ity of Gini 3.412.2.7 [place] .3.210057 MD Soares8 [facility] 2022-11-26 2022-11-26 Outpatient KYLAH LUU MDA MDA [id number] 09:18:42 11:43:01 WINTER Richardsoners clint olivier 2022-11-26 2022-11-26 Travel 1.2.840.1 1.2.172.324 4028 [id number] Univers 00:00:00 00:00:00 40257.1.1 350.1.13.41 ity of 3.412.2.7 2.2.7.3.698 [place] .3.738048 084.8 MD Soares8 [facility] 2022-11-24 2022-11-24 Lab David Nunez 1.2.840.1 [id number] Univers 00:00:00 00:00:00 Alexa Cantrell 73134.1.1 i ty of n 3.412.2.7 [place] .3.248867 MD [facility] 2022-11-23 2022-11-23 Telephone Jeffy, 1.2.840.1 [id number] 1101 [id number] Univers 00:00:00 00:00:00 Ofe Bourgeois 78417.1.1 it y of 3.412.2.7 [place] .3.053762 MD [facility] 2022-11-22 2022-11-22 Orders Olivier, 1.2.840.1 [id number] Univers 00:00:00 00:00:00 Only Berkley 79164.1.1 ity of 3.412.2.7 [place] .3.486117 .8 [facility] 2022-11-20 2022-11-20 Telephone Mateusz 1.2.840.1 [id number] 1101 [id number] Univers 00:00:00 00:00:00 Elana 29793.1.1 ity of 3.412.2.7 [place] .3.573734 .8 [facility] 2022-11-18 2022-11-18 Refill Doctor [facility] 1.2.840.114 [id number] Univers 00:00:00 00:00:00 Unassigned, HEALTH 350.1.13.10 ity of [place] 4.2.7.2.686 Frankie as JAVIER?BLEA [id number] [address] OFFICE [facility] 2022-11-18 2022-11-18 Telephone Sheriff [facility] 1.2.400.561 8539 [id number] Univers 00:00:00 00:00:00 Nereida [employer] 350.1.13.10 it y of [place] 4.2.7.2.686 Frankie as JAVIER?BLEA [id number] [address] OFFICE [facility] 2022-11-17 2022-11-17 Outpatient KYLAH POSADA MDA MDA [id number] 11:49:34 15:08:37 RED olivier 2022-11-17 2022-11-17 Outpatient KENYA CARRION MDA, MDA [id number] 09:21:35 11:44:36 Lauri olivier 2022-11-17 2022-11-17 Office Kenya Agarwal 1.2.840.1 [id number] [facility] [place] [facility] 09:15:00 11:44:36 Visit Y. 65858.1.1 ity of 3.412.2.7 [place] .3Rodger301765 MD Soares8 [facility] 2022-11-17 2022-11-17 Outpatient KENYA CARRION MDA, MDA [id number] 09:16:28 09:16:44 Lauri olivier 2022-11-17 2022-11-17 NPR Kenya Agarwal 1.2.840.1 [id number] Univers 08:45:00 09:16:44 Y. 28567.1.1 ity of 3.412.2.7 [place] .3.394169 MD Soares8 [facility] 2022-11-17 2022-11-17 Telephone [facility] ED 1.2.149.061 [id number] [id number] Univers 00:00:00 00:00:00 Nereida [facility] 350.1.13.10 it y of [place] 4.2.7.2.686 Frankie as JAVIER?BLEA [id number] [address] OFFICE [facility] 2022-11-17 2022-11-17 Travel 1.2.840.1 1.2.322.033 4264 [id number] Univers 00:00:00 00:00:00 90722.1.1 350.1.13.41 ity of 3.412.2.7 2.2.7.3.698 [place] .3.152495 08Dannielle.8 MD [facility] 2022-11-16 2022-11-16 Anabell Posada, 1.2.840.1 [id number] 1101 [id number] Univers 00:00:00 00:00:00 Only Red Costa 64732.1.1 it y of 3.412.2.7 [place] .3.964659 MD [facility] 2022-11-13 2022-11-13 Telephone [facility] ED 1.2.348.456 0820 7693 Univers 00:00:00 00:00:00 [facility] 350.1.13.10 it y of [place] 4.2.7.2.686 Frankie as JAVIER?BLEA [id number] [address] 2022-11-12 2022-11-12 Anabell Honeycutt 1.2.840.1 [id number] 1101 [id number] Univers 00:00:00 00:00:00 Only Chloe Alejandre 37263.1.1 it y of 3.412.2.7 [place] .3.573968 MD Soares8 [facility] 2022-11-12 2022-11-12 Orders Antonella, 1.2.840.1 [id number] [id number] Univers 00:00:00 00:00:00 Only Red Costa 86890.1.1 it y of 3.412.2.7 [place] .3.886688 MD .8 [facility] 2022-11-07 2022-11-07 [facility]add[facility] 1.2.840.114 [id number] Univers 00:00:00 00:00:00 [facility] 350.1.13.10 it y of [place] 4.2.7.2.686 Frankie as JAVIER?BLEA [id number] [address] OFFICE [facility] 2022-11-03 2022-11-03 [facility] 1.2.840.114 [id number] Univers 00:00:00 00:00:00 [facility] 350.1.13.10 it y of [place] 4.2.7.2.686 Frankie as JAVIER?BLEA [id number] [address] OFFICE [facility] 2022-11-03 2022-11-03 [facility] 1.2.840.114 [id number] Univers 00:00:00 00:00:00 [facility] 350.1.13.10 it y of Edward [place] 4.2.7.2.686 Frankie as JAVIER?BLEA [id number] [address] OFFICE [facility] 2022-10-21 2022-10-21 Office [facility] 1.2.840.114 [id number] Univers 09:30:00 09:45:00 Visit [facility] 350.1.13.10 it y of [place] 4.2.7.2.686 Frankie as JAVIER?BLEA [id number] [address] 2022-10-21 2022-10-21 Outpatient R JAZIEL [facility] [id number] Univers 09:30:00 09:24:24 NEREIDA pierre [facility] 2022-10-01 2022-10-01 [facility]ith [facility] 1.2.840.114 [id number] Univers 00:00:00 00:00:00 [facility] 350.1.13.10 it y of [place] 4.2.7.2.686 Frankie as JAVIER?BLEA [id number] [address] OFFICE [facility] 2022-09-21 2022-09-21 Outpatient R JAZIEL [facility] [id number] Univers 10:00:00 10:00:00 NEREIDA ithenri [facility] 2022-09-21 2022-09-21 Drive Tester Lab, Ang - Db [facility] 1.2.840.1 14 [id number] Univers 10:00:00 10:00:00 Visit Drew SheriffFormerly [facility] 350.1.13.10 ity of [place] 4.2.7.2.686 Frankie as JAVIER?BLEA [id number] [address] OFFICE [facility] 2022-09-21 2022-09-21 Office [facility] 1.2.840.114 [id number] Univers 09:45:00 10:00:00 Visit [facility] 350.1.13.10 it y of [place] 4.2.7.2.686 Frankie as JAVIER?BLEA [id number] [address] OFFICE [facility] 2022-09-18 2022-09-18 Refmaddie [facility] 1.2.840.114 [id number] Univers 00:00:00 00:00:00 [facility] 350.1.13.10 it y of [place] 4.2.7.2.686 Frankie as JAVIER?BLEA [id number] [address] OFFICE [facility] 2022-09-17 2022-09-17 Refmaddie [facility] 1.2.840.114 [id number] Univers 00:00:00 00:00:00 [place] [facility] 350.1.13.10 it y of [place] 4.2.7.2.686 Frankie as JAVIER?BLEA [id number] [address] OFFICE [facility] 2022-09-07 2022-09-07 Refill [facility] 1.2.840.114 [id number] Univers 00:00:00 00:00:00 Nereida HEALTH 350.1.13.10 it y of [place] 4.2.7.2.686 Frankie as JAVIER?BLEA [id number] [address] OFFICE [facility] 2022-09-03 2022-09-03 Refmaddie [facility] 1.2.840.114 [id number] Univers 00:00:00 00:00:00 Nereida HEALTH 350.1.13.10 it y of [place] 4.2.7.2.686 Frankie as JAVIER?BLEA [id number] [address] 2022-09-03 2022-09-03 Refmaddie [facility] 1.2.840.114 [id number] Univers 00:00:00 00:00:00 Nereida HEALTH 350.1.13.10 it y of [place] 4.2.7.2.686 Frankie as JAVIER?BLEA [id number] [address] OFFICE [facility] 2022-08-31 2022-08-31 Office RAÚL [facility] 1.2.840.[id number] [place] [address] 13:14:07 15:10:18 Visit CHINMAY AMBULATOR 350.1.13.21 College Y 0.2.7.2.686 of [id number] [facility] 810 2022-08-28 2022-08-28 Outpatient R JO [facility] [id number] Univers 08:05:50 23:59:00 BLANCHE pierre of [facility] 2022-08-28 2022-08-28 [facility] 1.2.840.114 [id number] Univers 08:05:50 23:59:00 Encounter Blanche LEE 350.1.13.10 ity of [place] 4.2.7.2.686 [place] [facility] [id number] [address] 2022-08-28 2022-08-28 Drive Tester Royal, Jenniffer Lab Main [facility] 1.2.8 40.114 [id number] Univers 08:15:00 08:30:00 Visit Blanche Osorio 350.1.13.10 ity of [place] 4.2.7.2.686 [place] BEATRISIO [id number] In mary Nugent [facility] 2022-08-28 2022-08-28 Telephone [facility] 1.2.107.865 [id number] Univers 00:00:00 00:00:00 Blanche HEALTH 350.1.13.10 it y of [place] 4.2.7.2.686 Frankie as JAVIER?BLEA [id number] In mary GOEL [address] [place] [address] OFFICE [facility] 2022-08-26 2022-08-26 Outpatient R JO [facility] [id number] Univers 00:00:00 00:00:00 BLANCHE pierre [facility] 2022-08-25 2022-08-25 Outpatient [facility] [id number] Univers 10:00:00 11:23:37 BLANCHE pierre [facility] 2022-08-25 2022-08-25 [facility] 1.2.840.114 [id number] Univers 10:00:00 11:23:37 Visit Blanche [facility] 350.1.13.10 [facility] 4.2.7.2.686 Frankie as JAVIER?BLEA [phone] In mary [address] OFFICE [facility] 2022-08-24 2022-08-24 Telephone [facility] [id number] Univers 00:00:00 00:00:00 Blanche HEALTH 350.1.13.10 it y of [place] 4.2.7.2.686 Frankie as JAVIER?BLEA [phone] In mary [address] OFFICE [facility] 2022-08-21 2022-08-21 Refmaddie [facility] 1.2.840.114 [id number] Univers 00:00:00 00:00:00 Nereida HEALTH 350.1.13.10 it y of [place] 4.2.7.2.686 Frankie as JAVIER?BLEA [id number] [address] OFFICE [facility] 2022-08-18 2022-08-18 Refmaddie [facility] 1.2.840.114 [id number] Univers 00:00:00 00:00:00 Nereida HEALTH 350.1.13.10 it y of [place] 4.2.7.2.686 Frankie as JAVIER?BLEA [id number] In mary [address] MEDICAL OFFICE [facility] 2022-08-11 2022-08-11 Office JAYESH RAI 1.2.840.114 [id number] [facility] 15:06:02 15:06:02 Visit [employer] 350.1.13.21 College Y 0.2.7.2.686 of [id number] [facility] 800 e 2022-08-06 2022-08-06 Refmaddie [facility] 1.2.840.114 [id number] Univers 00:00:00 00:00:00 Nereida HEALTH 350.1.13.10 it y of [place] 4.2.7.2.686 Frankie as JAVIER?BLEA [id number] In mau[address] OFFICE [facility] 2022-08-05 2022-08-05 [facility] 1.2.840.114 [id number] Univers 00:00:00 00:00:00 Nereida HEALTH 350.1.13.10 it y of [place] 4.2.7.2.686 Frankie as JAVIER?BLEA [phone] In mau[address] OFFICE [facility] 2022-07-30 2022-07-[address] [facility] 1.2.840.114 [id number] Univers 00:00:00 00:00:00 Nereida HEALTH 350.1.13.10 it y of [place] 4.2.7.2.686 Frankie as JAVIER?BLEA [id number] [address] MEDICAL OFFICE [facility] 2022-07-28 2022-07-28 [facility] Angelica Mathis [facility] [id number] [facility] 11:11:47 23:59:00 [facility] SandraFlakita [facility] 2022-07-28 2022-07-28 Outpatient Angelica [facility]IS [facility] [id number] [facility] 11:11:47 23:59:00 2022-07-28 2022-07-28 [facility] Del Angelica [facility] [id number] [facility] [address] 11:11:47 23:59:00 [facility] 2022-07-26 2022-07-26 [facility] 1.2.840.114 [id number] Univers 00:00:00 00:00:00 Nereida HEALTH 350.1.13.10 it y of [place] 4.2.7.2.686 Frankie as JAVIER?BLEA [phone] [facility] JAMILA[address] MEDICAL OFFICE [facility] 2022-07-21 2022-07-21 [facility] 1.2.840.114 [id number] Univers 00:00:00 00:00:00 Nereida HEALTH 350.1.13.10 it y of [place] 4.2.7.2.686 Frankie as JAVIER?BLEA [phone] In mary MARINO[address] OFFICE [facility] 2022-07-19 2022-07-19 [facility] 1.2.840.114 [id number] Univers 00:00:00 00:00:00 Nereida HEALTH 350.1.13.10 it y of [place] 4.2.7.2.686 Frankie as JAVIER?BLEA [id number] [address] OFFICE [facility] 2022-07-09 2022-07-09 [facility] 1.2.840.114 [id number] Univers 00:00:00 00:00:00 Nereida HEALTH 350.1.13.10 it y of [place] 4.2.7.2.686 Frankie as JAVIER?BLEA [phone] In mary [address] [address] OFFICE [facility] 2022-07-08 2022-07-08 Outpatient Angelica MATHIS [facility] [id number] [facility] 11:43:31 12:15:51 Marci lopez of Medicin e 2022-07-08 2022-07-08 Outside Angelica Mathis [facility] [id number] 00:00:00 00:00:00 [facility] 2022-07-082022-07-08 Outside Angelica Mathis [facility] [id number] [facility] 00:[facility] 00:00:00 Orders [facility] 2022-07-04 2022-07-04 Rohith Sheriff [facility] 1.2.840.114 [id number] Univers 00:00:00 00:00:00 [facility] 350.1.13.10 it y of [place] 4.2.7.2.686 Frankie as JAVIER?BLEA [id number] [address] MEDICAL OFFICE [facility] 2022-06-30 2022-06-30 [facility] 1.2.840.114 [id number] Univers 00:00:00 00:00:00 [facility] 350.1.13.10 it y of [place] 4.2.7.2.686 Frankie as JAVIER?BLEA [id number] [address] OFFICE [facility] 2022-06-23 2022-06-23 Outpatient Leona CALERO [facility] [id number] Univers 09:00:00 09:00:00 [place] pierre [facility] 2022-06-21 2022-06-21 [facility] 1.2.840.114 [id number] Univers 00:00:00 00:00:00 [facility] 350.1.13.10 it y of [place] 4.2.7.2.686 Frankie as JAVIER?BLEA [id number] [address] OFFICE [facility] 2022-06-17 2022-06-17 Outpatient Leona SHERIFF [facility] [id number] Univers 10:00:00 10:00:00 NEREIDA henri [facility] 2022-06-16 2022-06-16 Office JAYESH WISE 1.2.840.114 [id number] [facility] 07:46:52 10:29:18 Visit DEWAYNE AMBULATOR 350.1.13.21 College Y 0.2.7.2.686 of [id number] Medi patsy 325 e 2022-06-08 2022-06-08 [facility] 1.2.840.114 [id number] Univers 00:00:00 00:00:00 [facility] HEALTH 350.1.13.10 it y of [place] 4.2.7.2.686 Frankie as JAVIER?BLEA [phone] [facility] JAMIL[address] OFFICE [facility] 2022-06-08 2022-06-08 [facility] 1.2.840.114 [id number] 38 Univers 00:00:00 00:00:00 [facility] HEALTH 350.1.13.10 it y of [place] 4.2.7.2.686 Frankie as JAVIER?BLEA [id number] [address] OFFICE [facility] 2022-06-03 2022-06-03 [facility] 1.2.840.114 [id number] Univers 00:00:00 00:00:00 [facility] 350.1.13.10 it y of [place] 4.2.7.2.686 Frankie as JAVIER?BLEA [id number] [address] OFFICE [facility] 2022-06-03 2022-06-03 [facility] 1.2.840.114 [id number] 74 Univers 00:00:00 00:00:00 [facility] 350.1.13.10 it y of [place] 4.2.7.2.686 Frankie as JAVIER?BLEA [id number] [address] OFFICE [facility] 2022-05-17 2022-05-17 [facility] 1.2.840.114 [id number] Univers 00:00:00 00:00:00 [facility] 350.1.13.10 it y of [place] 4.2.7.2.686 Frankie as JAVIER?BLEA [id number] [address] OFFICE [facility] 2022-05-11 2022-05-11 [facility] 1.2.840.114 [id number] Univers 00:00:00 00:00:00 [facility] 350.1.13.10 it y of [place] 4.2.7.2.686 Frankie as JAVIER?BLEA [id number] [address] OFFICE [facility] 2022-04-08 2022-04-08 Outpatient Aguilar_M VFP [facility] [id number] 45-20 [facility] 00:00:00 00:00:00 [id number] Family Practic e 2022-04-08 2022-04-08 [facility] 1.2.840.114 [id number] Univers 00:00:00 00:00:00 [place] [facility] 350.1.13.10 it y of [place] 4.2.7.2.686 Frankie as JAVIER?BLEA [id number] [address] OFFICE [facility] 2022-03-31 2022-03-31 [facility] 1.2.840.114 [id number] 37 Univers 00:00:00 00:00:00 [facility] 350.1.13.10 it y of [place] 4.2.7.2.686 Frankie as JAVIER?BLEA [id number] [address] 2022-03-18 2022-03-18 [facility] [id number] Univers 09:30:00 09:45:06 [facility] 2022-03-18 2022-03-18 Office [facility] 1.2.840.114 [id number] Univers 09:30:00 09:45:00 Visit [facility] 350.1.13.10 it y of [place] 4.2.7.2.686 Frankie as JAVIER?BLEA [id number] [address] 2022-03-18 2022-03-18 Outpatient [facility] [id number] Univers 09:30:00 09:30:00 [facility] 2022 2022 [facility] 1.2.840.114 [id number] Univers 00:00:00 00:00:00 [facility] 350.1.13.10 it y of [place] 4.2.7.2.686 Frankie as JAVIER?BLEA [id number] [address] 2022-03-13 2022-03-13 Rohith Sheriff [facility] 1.2.840.114 [id number] Univers 00:00:00 00:00:00 [facility] 350.1.13.10 it y of [place] 4.2.7.2.686 Frankie as JAVIER?BLEA [id number] [address] 2022-03-11 2022-03-11 [facility] 1.2.840.114 [id number] 61 Univers 00:00:00 00:00:00 [facility] 350.1.13.10 it y of [place] 4.2.7.2.686 Frankie as JAVIER?BLEA [id number] [address] 2022-03-09 2022-03-09 [facility] 1.2.840.114 [id number] 96 Univers 00:00:00 00:00:00 [facility] 350.1.13.10 it y of [place] 4.2.7.2.686 Frankie as JAVIER?BLEA [id number] [address] 2022-03-05 2022-03-05 [facility] 1.2.840.114 [id number] 96 Univers 00:00:00 00:00:00 [facility] 350.1.13.10 it y of [place] 4.2.7.2.686 Frankie as JAVIER?BLEA [id number] [address] 2022-03-02 2022-03-02 [facility] 1.2.840.114 [id number] 53 Univers 00:00:00 00:00:00 [facility] 350.1.13.10 it y of [place] 4.2.7.2.686 Frankie as JAVIER?BLEA [id number] [address] 2022-03-02 2022-03-02 [facility] 1.2.840.114 [id number] 70 Univers 00:00:00 00:00:00 [facility] 350.1.13.10 it y of [place] 4.2.7.2.686 Frankie as JAVIER?BLEA [id number] [facility] JAMILA[address] OFFICE [facility] 2022-02-05 2022-02-05 Telephone [facility] 1.2.609.629 [id number] Univers 00:00:00 00:00:00 [facility] 350.1.13.10 it y of [place] 4.2.7.2.686 Frankie as JAVIER?BLEA [id number] [address] 2022-01-30 2022-01-30 Refmaddie [facility] 1.2.840.114 [id number] Univers 00:00:00 00:00:00 [facility] 350.1.13.10 it y of [place] 4.2.7.2.686 Frankie as PROFESSIO [phone] [address] 2022-01-25 2022-01-[address] [facility] ERT [id number] Univers 12:57:00 16:23:00 JACQUELIN pierre [facility] 2022-01-25 2022-01-25 Emergency [facility] 1.2.895.337 [id number] Univers 12:57:00 16:23:00 Jacquelin Alvarado [place] 350.1.13.10 ity of [place] 4.2.7.2.686 [place] [facility] [id number] [address] 2022-01-22 2022-01-22 Outpatient Aguilar_M VFP VFP [id number] [facility] 08:43:00 08:43:00 [id number] Family Practic e 2022-01-14 2022-01-14 Refmaddie [facility] 1.2.840.114 [id number] Univers 00:00:00 00:00:00 [facility] 350.1.13.10 [facility] 4.2.7.2.686 Frankie as PROFESSIO [id number] [address] ONE 2022-01-09 2022-01-09 Outpatient JAYESH WISE [facility] [id number] [facility] 15:12:14 15:12:14 DEWAYNE lopez of Medicin e 2022-01-09 2022-01-09 Outpatient MASON Napoleon [facility] [id number] [facility] 15:10:12 15:10:12 DEWAYNE Marci lopez of Medicin e 2022-01-09 2022-01-09 [facility] [id number] 07:39:00 14:08:00 Encounter Dewayne [facility] 2022-01-09 2022-01-09 Outpatient MASON [facility] Surgery [id number] SLE 07:39:00 14:08:00 DEWAYNE 2022-01-09 2022-01-09 Anesthesia Rigo Srinivasaclint Gutierrez [facility] [id number] 11:08:00 12:56:00 Event India Ke[facility] 2022-01-09 2022-01-09 Surgery [facility] [id number] 11:30:00 12:50:00 [facility] 2022-01-09 2022-01-09 Travel [facility] [id number] [facility] 00:[facility]:00 00:00:00 [facility] 2022-01-08 2022-01-08 Outpatient [facility] [id number] SLE 12:18:15 23:59:00 2022-01-08 2022-01-08 [facility] [id number] 11:55:00 23:59:00 Encounter [facility] 2022-01-08 2022-01-08 Travel [facility] [id number] [facility] 00:00:00 00:00:00 [facility] 2021-12-18 2021-12-18 Office Galilea [facility] 1.2.840.114 [id number] Univers 15:45:00 16:15:00 Visit [facility] 350.1.13.10 it y of [place] 4.2.7.2.686 Frankie as JAVIER?BLEA [phone] In mary GOEL [address] [place] [address] MEDICAL OFFICE BUILDING 2021-12-18 2021-12-18 Outpatient Leona CALERO [facility] [id number] Univers 15:45:00 15:45:00 [facility] 2021-12-18 2021-12-18 Outpatient Leona CALERO [facility] [id number] Univers 15:45:00 15:45:00 [facility] 2021-12-16 2021-12-16 Outpatient Leona CALERO [facility] [id number] Univers 16:00:00 16:00:00 [facility] 2021-12-16 2021-12-16 Orders Doctor OLGA 1.2.840.114 [id number] Univers 00:00:00 00:00:00 Only Unassigned, STEVE 350.1.13.10 [facility] 4.2.7.2.686 Frankie as [id number] [address] 2021-12-15 2021-12-15 [facility] 1.2.840.114 [id number] Univers 00:00:00 00:00:00 [facility] 350.1.13.10 it y of [place] 4.2.7.2.686 Frankie as PROFESSIO [id number] In mauwy YOVANI [address] [place] [address] OFFICE BUILDING ONE 2021-12-08 2021-12-08 [facility] 1.2.840.114 [id number] 48 Univers 00:00:00 00:00:00 [facility] 350.1.13.10 it y of [place] 4.2.7.2.686 Frankie as JAVIER?BLEA [phone] In mary GOEL [address] [place] [address] MEDICAL OFFICE BUILDING 2021-12-04 2021-12-04 [facility] [id number] 08:54:00 10:51:00 Encounter Dewayne [facility] 2021-12-04 2021-12-04 Outpatient MASON [facility] Surgery [id number] SLE 08:54:00 10:51:00 DEWAYNE 2021-12-04 2021-12-04 Surgery [facility] [id number] 09:00:00 10:30:00 Dewayne Stanley [facility] 2021-11-19 2021-11-19 ALIYA Siu 1.2.454.743 [id number] Univers 00:00:00 00:00:00 [facility] 350.1.13.10 it y of [place] 4.2.7.2.686 Frankie as JAVIER?BLEA [id number] [address] OFFICE BUILDING 2021-11-15 2021-11-15 Rohith Sheriff [facility] 1.2.840.114 [id number] Univers 00:00:00 00:00:00 [facility] 350.1.13.10 it y of [place] 4.2.7.2.686 Frankie as PROFESSIO [id number] [address] ONE 2021-11-06 2021-11-06 Office MASON [facility] 1.2.840.114 [id number] [facility] 13:24:51 16:22:30 Visit DEWAYNE AMBULATOR 350.1.13.21 College Y 0.2.7.2.686 of [id number] Medi patsy 325 e 2021-11-06 2021-11-06 Rohith Sheriff [facility] 1.2.840.114 [id number] Univers 00:00:00 00:00:00 [facility] 350.1.13.10 it y of [place] 4.2.7.2.686 Frankie as JAVIER?BLEA [id number] [address] OFFICE [facility] 2021-11-01 2021-11-01 Outpatient Aguilar_M VFP VFP [id number] [facility] 02:58:00 02:58:00 [id number] Family Practic e 2021-10-27 2021-10-27 Rohith Sheriff [facility] 1.2.840.114 [id number] Univers 00:00:00 00:00:00 [facility] 350.1.13.10 it y of [place] 4.2.7.2.686 Frankie as PROFESSIO [id number] [address] ONE 2021-10-16 2021-10-16 Rohith Sheriff [place] 1.2.840.114 [id number] Univers 00:00:00 00:00:00 [facility] 350.1.13.10 it y of [place] 4.2.7.2.686 Frankie as PROFESSIO [phone] In dic[address] OFFICE [facility] ONE 2021-10-11 2021-10-11 Outpatient Aguilar_M VFP VFP [id number] [facility] 06:17:00 06:17:00 [id number] Family Practic e 2021-10-07 2021-10-07 [facility]addie [facility] 1.2.840.114 [id number] Univers 00:00:00 00:00:00 [facility] 350.1.13.10 [facility] 4.2.7.2.686 Frankie as JAVIER?BLEA [phone] [address] OFFICE [facility] 2021-10-03 2021-10-03 Outpatient Aguilar_M VFP VFP [id number] [place] [address] 05:34:00 05:34:00 [id number] Family Practic e 2021-09-29 2021-09-29 Refmaddie [facility] 1.2.952.775 [id number] Univers 00:00:00 00:00:00 [facility] 350.1.13.10 it y of SURGICAL 4.2.7.2.686 Frankie as SPECIALTI [id number] [address] 2021-09-18 2021-09-18 Outpatient Leona SHERIFF [facility] [id number] Univers 10:15:00 10:15:00 NEREIDA pierre [facility] 2021-09-18 2021-09-18 Office [facility] 1.2.840.114 [id number] Univers 08:40:07 08:55:07 Visit [facility] 350.1.13.10 it [facility] 4.2.7.2.686 Frankie as JAVIER?BLEA [id number] [address] OFFICE [facility] 2021-09-18 2021-09-18 Outpatient [facility] [id number] Univers 10:15:00 08:52:38 [facility] 2021-09-08 2021-09-08 [facility] 1.2.840.114 [id number] 83 Univers 00:00:00 00:00:00 [facility] 350.1.13.10 it y of [place] 4.2.7.2.686 Frankie as JAVIER?BLEA [id number] In mauwy AMANDO [address] [place] [address] OFFICE [facility] 2021-09-04 2021-09-04 [facility] 1.2.840.114 [id number] Univers 00:00:00 00:00:00 [place] [facility] 350.1.13.10 it y of [place] 4.2.7.2.686 Frankie as PROFESSIO [phone] In mau[address] OFFICE [facility] ONE 2021-08-28 2021-08-28 [facility]ith [facility] 1.2.840.114 [id number] 80 Univers 00:00:00 00:00:00 [facility] 350.1.13.10 it y of [place] 4.2.7.2.686 Frankie as PROFESSIO [phone] In mau[address] OFFICE [facility] 2021-08-22 2021-08-22 [facility]ith [facility] 1.2.840.114 [id number] 73 Univers 00:00:00 00:00:00 [facility] 350.1.13.10 it y of [place] 4.2.7.2.686 Frankie as Professio [phone] [address] 2021-08-21 2021-08-21 Yousuf Hwang [facility] [place] - [id number]- [id number] [facility] 00:00:00 00:00:00 [facility] 110411 Family [facility] - Pract brando GRFIFIN: [address]Shaye lopez y [address], [place] [address] , Ph. 2021-08-20 2021-08-20 Outpatient Lm_Leona [facility] [id number] 45-20 [facility] 04:30:00 04:30:[id number] [place] [address] Practic lacho 2021-08-20 2021-08-20 Gala Sheriff [facility] 1.2.338.528 [id number] Univers 00:00:00 00:00:00 [facility] 350.1.13.10 it y of [place] 4.2.7.2.686 Frankie as Javier?Blea [id number] [address] 2021-08-07 2021-08-07 Refmaddie [facility] 1.2.840.114 [id number] Univers 00:00:00 00:00:00 [facility] 350.1.13.10 it y of [place] 4.2.7.2.686 Frankie as Javier?Blea [id number] [address] 2021-07-14 2021-07-14 [facility] 1.2.840.114 [id number] 67 Univers 00:00:00 00:00:00 [facility] 350.1.13.10 it y of [place] 4.2.7.2.686 Frankie as Javier?Blea [phone] [address] 2021-07-11 2021-07-11 Imm/Inj Nurse, Adc Pob Immunization [facility] 1.2.840.114 [id number] Univers 10:44:02 10:44:14 Visit Miguel Patel 350.1.13 .10 ity [facility] 4.2.7.2.686 [place] Profess[place] [id number] [address] 2021-07-11 2021-07-11 Outpatient R IRAIS [facility] [id number] Univers 10:30:00 10:30:00 MIGUEL pierre [facility] 2021-07-10 2021-07-10 [facility]ith [facility] 1.2.840.114 [id number] Univers 00:00:00 00:00:00 [facility] 350.1.13.10 it y of [place] 4.2.7.2.686 Frankie as Javier?Blea [phone] [address] 2021-06-29 2021-06-29 Rohith Sheriff [facility] 1.2.840.114 [id number] 70 Univers 00:00:00 00:00:00 [facility] 350.1.13.10 it y of [place] 4.2.7.2.686 Frankie as Professio [phone] In dical nal [address] [place] [address] Office [facility] One 2021-06-24 2021-06-24 [facility]ith [facility] 1.2.840.114 [id number] 16 Univers 00:00:00 00:00:00 [facility] 350.1.13.10 it y of [place] 4.2.7.2.686 Frankie as Professio [phone] In dical nal [address] [place] [address] Office [facility] One 2021-06-10 2021-06-10 Rohith [facility] 1.2.840.114 [id number] 93 Univers 00:00:00 00:00:00 [facility] 350.1.13.10 it y of [place] 4.2.7.2.686 Frankie as Professio [phone] In dical nal [address] [place] [address] Office [facility] One 2021-06-09 2021-06-09 Rohith [facility] 1.2.840.114 [id number] 28 Univers 00:00:00 00:00:00 [facility] 350.1.13.10 it y of [place] 4.2.7.2.686 Frankie as Professio [id number] In dical nal [address] [place] [address] Office [facility] One 2021-06-09 2021-06-09 Rohith [facility] 1.2.840.114 [id number] 44 Univers 00:00:00 00:00:00 [facility] 350.1.13.10 it y of [place] 4.2.7.2.686 Frankie as Professio [phone] In dical nal [address] [place] [facility] [address] One 2021-06-01 2021-06-01 Rohith [facility] 1.2.840.114 [id number] 21 Univers 00:00:00 00:00:00 [facility] 350.1.13.10 it y of [place] 4.2.7.2.686 Frankie as Professio [phone] In dical nal [address] [place] [address] Office [facility] One 2021-05-15 2021-05-15 Patient [facility] 1.2.840.114 [id number] 82 Univers 00:00:00 00:00:00 Outreach Jaimee Alejandre [facility] 350.1.13.10 i ty of [place] 4.2.7.2.686 Frankie as Professio [phone] In dical nal [address] [place] [facility] One 2021-05-14 2021-05-14 Nurse Cbc, Medicare Wellness Ang [facility] 1.2.840.114 [id number] Univers 09:04:42 10:32:18 Visit Jaziel [facility] 350.1.13.10 ity of [place] 4.2.7.2.686 Frankie as Professio [id number] In dical nal [address] [place] [facility] One 2021-05-14 2021-05-14 Office [facility] 1.2.840.114 [id number] 95 Univers 08:58:25 09:13:25 Visit [facility] 350.1.13.10 it y of [place] 4.2.7.2.686 Frankie as Professio [phone] In dical nal [address] [place] [facility] One 2021-05-14 2021-05-14 Outpatient Leona SHERIFF [facility] [id number] Univers 09:00:00 09:00:00 NEREIDA pierre [facility] 2021-05-12 2021-05-12 Refmaddie [facility] 1.2.840.114 [id number] 84 Univers 00:00:00 00:00:00 [place] [address].1.13.10 it y of [place] 4.2.7.2.686 Frankie as Professio [phone] In dical nal [address] [place] [address] Office [facility] One 2021-04-30 2021-04-30 Outpatient Leona JOYCE [facility] [id number] Univers 13:15:00 13:15:00 DUSTIN pierre [facility] 2021-04-23 2021-04-23 Outpatient Leona SHERIFF [facility] [id number] Univers 00:00:00 00:00:00 NEREIDA pierre [facility] 2021-04-14 2021-04-14 Refill [facility] 1.2.840.114 [id number] Univers 00:00:00 00:00:00 [facility] 350.1.13.10 it y of [place] 4.2.7.2.686 Frankie as Professio [id number] [address] Office [facility] One 2021-04-03 2021-04-03 Hammad Chaney 1.2.840.114 [id number] Univers 00:00:00 00:00:00 Management , Mary Draper 350.1.13.10 ity of [place] 4.2.7.2.686 [place] [id number] [address] 2021-03-26 2021-03-26 Rohith Y[facility] 1.2.840.114 [id number] 37 Univers 00:00:00 00:00:00 [facility] 350.1.13.10 it y of [place] 4.2.7.2.686 Frankie as Professio [phone] [address] Office [facility] One 2021-03-26 2021-03-26 Rohith [facility] 1.2.840.114 [id number] 37 00:00:00 00:00:00 [facility] 350.1.13.10 [place] 4.2.7.2.686 Professio [phone] [place] [address] Office [address] One 2021-03-25 2021-03-25 Rohith Youngchrissy [facility] 1.2.840.114 [id number] 96 Univers 00:00:00 00:00:00 [facility] 350.1.13.10 it y of [place] 4.2.7.2.686 Frankie as Professio [phone] In dicwy nal [address] [place] [address] Office Building One 2021-03-25 2021-03-25 Rohith Sheriff [facility] 1.2.840.114 [id number] 96 00:00:00 00:00:00 [facility] 350.1.13.10 [place] 4.2.7.2.686 Professio [phone] [place] [address] Office Building One 2021-03-18 2021-03-18 Gala Sheriff [facility] 1.2.198.166 [id number] 8122 Univers 00:00:00 00:00:00 Nereida Lee 350.1.13.10 i ty of [place] 4.2.7.2.686 [place] Profess[place] [phone] [address] 2021-03-18 2021-03-18 Telephone [facility] 1.2.745.085 [id number] 8122 00:00:00 00:00:00 Nereida Lee 350.1.13.10 [place] 4.2.7.2.686 Professio [id number] [address] 2021-03-13 2021-03-13 Gala [facility] 1.2.954.076 [id number] [facility] 00:00:00 00:00:00 [facility] [id number] it y of [place] 4.2.7.2.686 Frankie as Professio [phone] [address] Office [facility] 2021-03-13 2021-03-13 [facility] [id number] 00:00:00 00:00:00 [facility] [id number] [place] 4.2.7.2.686 Professio [phone] [address] One 2021-03-10 2021-03-10 Outpatient R SUN[facility] [id number] Univers 12:00:00 12:00:00 AMANDA pierre of [facility] 2021-03-10 2021-03-10 Urgent Provider, [facility] Urgent Care [facility] 1.2.840.114 [id number] Univers 11:16:36 11:36:36 Amanda Montes De Oca 350.1.13.10 ity of [place] 4.2.7.2.686 Frankie as Professio [phone] [address] Office [facility] 2021-03-10 2021-03-10 [facility]ill [facility] 1.2.840.114 [id number] Univers 00:00:00 00:00:00 [facility] [id number] it y of [place] 4.2.7.2.686 Frankie as Professio [phone] [address] Office [facility] 2021-02-25 2021-02-25 Telephone Jaziel [facility] [id number] [id number] Univers 00:00:00 00:00:00 [facility] 350.1.13.10 it y of [place] 4.2.7.2.686 Frankie as Professio [phone] [address] Office [facility] 2021-02-20 2021-02-20 [facility] 1.2.840.114 [id number] Univers 00:00:00 00:00:00 [facility] 350.1.13.10 it y of [place] 4.2.7.2.686 Frankie as Professio [phone] [address] One 2021-02-12 2021-02-12 Office Jaziel [facility] 1.2.840.114 [id number] Univers 09:00:39 09:22:35 Visit [facility] [id number] it y of [place] 4.2.7.2.686 Frankie as Professio [phone] [address] Office [facility] 2021-02-12 2021-02-12 Outpatient R JAZIEL [facility] [id number] Univers 09:00:00 09:00:00 NEREIDA ity of [facility] 2021-02-12 2021-02-12 Orders Doctor OLGA 1.2.840.114 [id number] Univers 00:00:00 00:00:00 Only Unassigned, STEVE 350.1.13.10 ity of [place] [facility] 4.2.7.2.686 Frankie as [phone] [address] 2021-02-10 2021-02-10 Refmaddie [facility] 1.2.840.114 [id number] Univers 00:00:00 00:00:00 [facility] 350.1.13.10 it y of [place] 4.2.7.2.686 Frankie as Professio [phone] [address] Office [facility] One 2021-01-06 2021-01-06 Telephone [facility] 1.2.482.974 [id number] Univers 00:00:00 00:00:00 [facility] 350.1.13.10 it y of [place] 4.2.7.2.686 Frankie as Professio [phone] [address] One 2021-01-06 2021-01-06 Telephone [facility] 1.2.760.686 [id number] Univers 00:00:00 00:00:00 [facility] 350.1.13.10 it y of [place] 4.2.7.2.686 [place]ie as Professio [phone] [address] One 2021-01-01 2021-01-01 Outpatient Leona INTERIANO [facility] [id number] Univers 15:20:00 15:20:00 PABLO [facility] 2020-12-31 2020-12-31 Outpatient Leona INTERIANO [facility] [id number] Univers 15:50:00 15:50:00 PABLO [facility] 2020-12-12 2020-12-12 Refill [facility] 1.2.840.114 [id number] Univers 00:00:00 00:00:00 [facility] 350.1.13.10 it y of [place] 4.2.7.2.686 [place]ie as Professio [phone] [address] One 2020-12-11 2020-12-11 Refill [facility] 1.2.840.114 [id number] Univers 00:00:00 00:00:00 [facility] 350.1.13.10 it y of [place] 4.2.7.2.686 [place]ie as Professio [phone] [address] One 2020-12-03 2020-12-03 Outpatient Leona INTERIANO [facility] [id number] Univers 15:50:00 15:50:00 PABLO [facility] 2020-11-13 2020-11-13 Office [facility] 1.2.840.114 [id number] Univers 08:46:00 09:20:33 Visit [facility] 350.1.13.10 it y of [place] 4.2.7.2.686 Frankie as Professio [phone] [address] Office [facility] One 2020-11-13 2020-11-13 Outpatient R JAZIEL [facility] [id number] Univers 09:00:00 09:00:00 NEREIDA pierre of [facility] 2020-11-11 2020-11-11 Refmaddie Sheriff[facility] 1.2.840.114 [id number] Univers 00:00:00 00:00:00 Nereida Lee 350.1.13.10 i [place] [phone] [address] 2020-10-10 2020-10-10 Telephone [facility] 1.2.925.122 [id number] Univers 00:00:00 00:00:00 [facility] 350.1.13.10 it y of [place] 4.2.7.2.686 Frankie as Professio [phone] [address] One 2020-10-10 2020-10-10 Letter [facility] 1.2.840.114 [id number] Univers 00:00:00 00:00:00 (Out) [facility] 350.1.13.10 it y of [place] 4.2.7.2.686 [place]ie as Professio [phone] [address] One 2020-10-10 2020-10-[address] [facility] 1.2.840.114 [id number] Univers 00:00:00 00:00:00 [facility] 350.1.13.10 it y of [place] 4.2.7.2.686 Frankie as Professio [phone] [address] Office [facility] One 2020-10-09 2020-10-09 Rohith [facility] 1.2.840.114 [id number] Univers 00:00:00 00:00:00 [facility] 350.1.13.10 it y of [place] 4.2.7.2.686 Frankie as Professio [phone] [place] [address] [place] Office [facility] One 2020-10-08 2020-10-08 Refmaddie [facility] 1.2.840.114 [id number] Univers 00:00:00 00:00:00 [facility] 350.1.13.10 it y of [place] 4.2.7.2.686 Frankie as Professio [phone] In dical nal 044 [place] Office [facility] 2020-10-04 2020-10-04 [facility] [id number] Univers 11:15:00 11:15:00 LUAN henri [facility] 2020-10-04 2020-10-04 Office [facility] 1.2.801.313 [id number] Univers 09:57:57 10:50:32 Visit [facility] 350.1.13.10 it y of Surgical 4.2.7.2.686 Frankie as Specialti [phone] In dical es 198 [facility] 2020-09-11 2020-09-11 Refmaddie Sheriff[facility] 1.2.840.114 [id number] Univers 00:00:00 00:00:00 [facility] 350.1.13.10 it y of [place] 4.2.7.2.686 Frankie as Professio [phone] In dical nal 044 [facility] One 2020-09-02 2020-09-02 Refmaddie Sheriff[facility] 1.2.840.114 [id number] Univers 00:00:00 00:00:00 [facility] 350.1.13.10 it y of [place] 4.2.7.2.686 Frankie as Professio [phone] In dical nal 044 [place] Office [facility] One 2020-08-26 2020-08-26 Outpatient R FIDE [facility] [id number] Univers 13:30:00 13:30:00 MOE ignacio [facility] 2020-08-15 2020-08-15 Office [facility] 1.2.840.114 [id number] Univers 09:59:04 10:14:04 Visit [facility] 350.1.13.10 it y of Surgical 4.2.7.2.686 [place] as Specialti [phone] In dical es 198 [facility] 2020-08-15 2020-08-15 Outpatient R GALILEA [facility] [id number] Univers 10:00:00 10:00:00 GERMAIN pierre [facility] 2020-08-13 2020-08-13 Telephone [facility] 1.2.840.114 [id number] Univers 00:00:00 00:00:00 Luan Alejandre [facility] 350.1.13.10 it y of Surgical 4.2.7.2.686 Frankie as Specialti [phone] In dical es 198 [facility] 2020-08-12 2020-08-12 Office [facility] 1.2.840.114 [id number] Univers 09:06:31 09:21:31 Visit Nereida [facility] 350.1.13.10 it y of [place] 4.2.7.2.686 Frankie as Professio [phone] In dical nal 044 [place] Office [facility] 2020-08-12 2020-08-12 Outpatient [facility] [id number] Univers 09:00:00 09:00:00 NEREIDA pierre [facility] 2020-08-08 2020-08-08 Office [facility] 1.2.942.400 [id number] Univers 14:52:25 15:06:19 Visit Luan Alejandre [facility] 350.1.13.10 it y of Surgical 4.2.7.2.686 Frankie as Specialti [phone] In dical es 198 [facility] 2020-08-08 2020-08-08 Outpatient [facility] [id number] Univers 15:00:00 15:00:00 LUAN pierre [facility] 2020-08-05 2020-08-05 Emergency [facility] 1.2.855.491 [id number] Univers 15:02:00 17:02:00 Brigida Leona Lee 350.1.13.10 i ty of [place] 4.2.7.2.686 [place] [phone] [facility] 084 [place] 2020-08-05 2020-08-05 Orders Doctor ESPINOZA 1.2.840.114 [id number] Univers 00:00:00 00:00:00 Only Unassigned, STEVE 350.1.13.10 ity of [place] [facility] 4.2.7.2.686 Frankie as [phone] [address] 2020-08-01 2020-08-01 Office [facility] 1.2.955.028 [id number] Univers 14:43:38 16:10:03 Visit Almita Lee 350.1.13.10 i ty [place] [phone] [facility] 188 [facility] 2020-08-01 2020-08-01 Outpatient R [facility] [id number] Univers 14:30:00 14:30:00 ALMITA pierre [facility] 2020-07-29 2020-07-29 Refmaddie SheriffS[facility] 1.2.840.114 [id number] Univers 00:00:00 00:00:00 [facility] 350.1.13.10 it y of [place] 4.2.7.2.686 Frankie as Professio [phone] [address] One 2020-07-23 2020-07-23 Outpatient R [facility] [id number] Univers 14:15:00 14:15:00 ALMITA pierre [facility] 2020-07-23 2020-07-23 Refmaddie SheriffS[facility] 1.2.840.114 [id number] Univers 00:00:00 00:00:00 [facility] 350.1.13.10 it y of [place] 4.2.7.2.686 Frankie as Professio [phone] [address] One 2020-07-22 2020-07-22 Outpatient R [facility] [id number] Univers 10:00:00 10:00:00 KEN pierre [facility] 2020-07-15 2020-07-15 Refmaddie SheriffS[facility] 1.2.840.114 [id number] Univers 00:00:00 00:00:00 [facility] 350.1.13.10 it y of [place] 4.2.7.2.686 Frankie as Professio [phone] [address] One 2020-06-26 2020-06-26 Refmaddie SheriffS[facility] 1.2.840.114 [id number] Univers 00:00:00 00:00:00 [facility] 350.1.13.10 it y of [place] 4.2.7.2.686 Frankie as Professio [phone] [address] Office [facility] One 2020-06-25 2020-06-25 Outpatient Leona RAMIREZ [facility] [id number] Univers 13:30:00 13:30:00 [facility] 2020-06-12 2020-06-12 Refmaddie Sheriff[facility] 1.2.840.114 [id number] Univers 00:00:00 00:00:00 [facility] 350.1.13.10 it y of [place] 4.2.7.2.686 Frankie as Professio [phone] [address] One 2020-06-12 2020-06-12 Telephone [facility] 1.2.696.417 [id number] Univers 00:00:00 00:00:00 [facility] 350.1.13.10 it y of [place] 4.2.7.2.686 Frankie as Professio [phone] [address] One 2020-06-11 2020-06-11 Refmaddie SheriffS[facility] 1.2.840.114 [id number] Univers 00:00:00 00:00:00 [facility] 350.1.13.10 it y of [place] 4.2.7.2.686 Frankie as Professio [phone] [address] Office [facility] One 2020-06-05 2020-06-05 Refmaddie SheriffS[facility] 1.2.840.114 [id number] Univers 00:00:00 00:00:00 [facility] 350.1.13.10 it y of [place] 4.2.7.2.686 Frankie as Professio [phone] [address] Office [facility] One 2020-05-28 2020-05-28 Telephone [facility] 1.2.879.233 [id number] Univers 00:00:00 00:00:00 Nereida Lee 350.1.13.10 i ty [place].2.[place] [phone] In dical nal 044 [facility] 2020-05-13 2020-05-13 Drive Tester Royal, Jenniffer Lab Main [facility] 1.2.8 40.114 [id number] Univers 14:52:09 15:07:09 Visit SheriffNereida lowe 350.1.13.10 ity of [place] 4.2.[place].2.[place] [phone] [facility] nal 353 [facility] 2020-05-13 2020-05-13 Outpatient R [facility] [id number] Univers 14:30:00 14:30:00 NEREIDA pierre [facility] 2020-05-13 2020-05-13 Office [facility] 1.2.840.114 [id number] Univers 13:57:32 14:12:32 Visit Nereida Lee 350..13.10 i ty of [place] 4.2.7.2.686 [place] [phone] [facility] nal [address] [place] [address] 2020-05-09 2020-05-09 Refill [facility] 1.2.840.114 [id number] Univers 00:00:00 00:00:00 [facility] 350.1.13.10 it y of [place] 4.2.7.2.686 Frankie as Professio [phone] [facility] nal 044 [facility] 2020-04-10 2020-04-10 Refill [facility] 1.2.840.114 [id number] Univers 00:00:00 00:00:00 [facility] 350.1.13.10 it y of [place] 4.2.7.2.686 Frankie as Professio [phone] [facility] nal 044 [facility] 2020-03-13 2020-03-13 Telephone [facility] 1.2.034.910 [id number] Univers 00:00:00 00:00:00 Nereida Lee 350.1.13.10 i ty [place] 4.2.7.2.[place] [phone] [facility] 044 [facility] 2020-03-11 2020-03-11 Refmaddie Sheriff[facility] 1.2.840.114 [id number] Univers 00:00:00 00:00:00 Nereida [facility] 350.1.13.10 it y of [place] 4.2.7.2.686 Frankie as Professio [phone] [facility] 044 [facility] One 2020-02-20 2020-02-20 Telemediccarlos RamirezSANTA ANA HEALTH [facility] 1.2.840.114 [id number] Univers 08:07:16 16:58:17 ne Visit Travis Hannaton 350.1.13.10 ity of [place] 4[place]2.[place].2.[place] [phone] [facility] 220 [facility] 2020-02-20 2020-02-20 Outpatient R JAMES [facility] [id number] Univers 15:00:00 15:00:00 [facility] 2020-02-15 2020-02-15 Outpatient [facility] [id number] Univers 07:30:00 07:30:00 NEREIDA henri [facility] 2020-02-15 2020-02-15 [facility] [place] [facility] 1.2.840.114 [id number] Univers 06:51:18 07:06:18 ne Visit Nereida Hannaton 350.1.13.10 ity of [place] 4.2.7.2.686 [place] [phone] [address] 2020-02-14 2020-02-14 Outpatient R [facility] [id number] Univers 07:00:00 07:00:00 NEREIDA henri [facility] 2020-02-12 2020-02-12 Refmaddie [facility] 1.2.840.114 [id number] Univers 00:00:00 00:00:00 Nereida [facility] 350.1.13.10 it y of [place] 4.2.7.2.686 Frankie as Professio [phone] [address] 2020-01-11 2020-01-11 Refmaddie Sheriff[facility] 1.2.840.114 [id number] Univers 00:00:00 00:00:00 [facility] 350.1.13.10 it y of [place] 4.2.7.2.686 Frankie as Professio [phone] [address] Office [facility] One 2019-12-28 2019-12-28 Office [facility] 1.2.840.114 [id number] Univers 09:22:44 09:56:04 Visit [facility] 350.1.13.10 it y of [place] 4.2.7.2.686 Frankie as Professio [phone] [address] Office [facility] One 2019-12-28 2019-12-28 Outpatient R JAZIEL [facility] [id number] Univers 09:30:00 09:30:00 NEREIDA ity of [facility] 2019-12-14 2019-12-14 Refmaddie [facility] 1.2.840.114 [id number] Univers 00:00:00 00:00:00 [facility] 350.1.13.10 it y of [place] 4.2.7.2.686 Frankie as Professio [phone] [address] Office [facility] One 2019-12-11 2019-12-11 Telephone [facility] 1.2.635.674 [id number] [facility] 00:00:00 00:00:00 [facility] 350.1.13.10 it y of [place] 4.2.7.2.686 Frankie as Professio [phone] [address] Office [facility] One 2019-12-02 2019-12-02 Refill [facility] 1.2.840.114 [id number] Univers 00:00:00 00:00:00 [facility] 350.1.13.10 it y of [place] 4.2.7.2.686 Frankie as Professio [phone] [address] Office [facility] One 2019-11-15 2019-11-15 Office [facility] 1.2.840.114 [id number] Univers 06:58:39 07:13:39 Visit [facility] 350.1.13.10 it y of [place] 4.2.7.2.686 Frankie as Professio [phone] In dicwy nal [address] [place] [address] Office Building One 2019-10-27 2019-10-27 Outpatient R JENNIFER [facility] [id number] Univers 09:55:58 23:59:00 ZACARIAS ity of [facility] 2019-07-20 2019-07-20 Refmaddie [facility] 1.2.840.114 [id number] Univers 00:00:00 00:00:00 [facility] 350.1.13.10 it y of [place] 4.2.7.2.686 Frankie as Professio [phone] In dicwy nal [address] [place] [address] Office Building One 2019-07-04 2019-07-04 Refmaddie [facility] 1.2.840.114 [id number] Univers 00:00:00 00:00:00 [facility] 350.1.13.10 it y of [place] 4.2.7.2.686 Frankie as Professio [phone] [address] Office Building One 2019-06-28 2019-06-28 Office [facility] 1.2.840.114 [id number] Univers 09:34:17 10:06:56 Visit [facility] 350.1.13.10 it y of [place] 4.2.7.2.686 Frankie as Professio [phone] [facility] nal [address] [place] [address] Office Building One 2019-06-28 2019-06-28 Refmaddie [facility] 1.2.840.114 [id number] Univers 00:00:00 00:00:00 [facility] 350.1.13.10 it y of [place] 4.2.7.2.686 Frankie as Professio [phone] In dical nal [address] [place] [address] Office Building One 2019-06-21 2019-06-21 Refmaddie [facility] 1.2.840.114 [id number] Univers 00:00:00 00:00:00 [facility] 350.1.13.10 it y of [place] 4.2.7.2.686 Frankie as Professio [phone] [facility] nal [address] [place] [address] Office Building One 2018-12-09 2018-12-09 Ambulatory nullFlavo MNA [id number] Memoria 20:45:00 20:45:00 Pre-Reg r Neurology 03 l Juan Seay 2018-12-09 2018-12-09 Ambulatory nullFlavo MNA [id number] Memoria 20:45:00 20:45:00 Pre-Reg r Neurology 03 l Juan Solomonann 2018-12-09 2018-12-09 Outpatient MHIE MHIE [id number] Memoria 14:45:00 14:45:00 03 bonnie Seay 2018-12-09 2018-12-09 [facility] [id number] 14:45:00 14:45:00 John Daina Mcmanus 2018-07-26 2018-07-26 Outpatient MHIE MHIE [id number] Memoria 09:00:00 09:00:00 02 bonnie [place] 2018-07-26 2018-07-26 Outpatient MHIE MHIE [id number] Memoria 09:00:00 09:00:00 02 bonnie [place] 2018-04-26 2018-04-26 Outpatient MHIE MHIE [id number] Memoria 08:30:00 08:30:00 01 bonnie [place] 2018-04-26 2018-04-26 Outpatient MHIE MHIE [id number] Memoria 08:30:00 08:30:00 01 l [place] 2018-04-04 2018-04-[address] [facility] [id number] Memoria 17:57:00 04:59:00 Surgery r Dawood 02 l Orthopedic [facility] 2018-04-04 2018-04-[address] [facility] [id number] Memoria 17:57:00 04:59:00 Surgery r Dawood 02 l Orthopedic [facility] 2018-04-04 2018-04-04 Outpatient Hernandez Kimberly [facility] [id number] 12:57:00 23:59:00 Han 2018-03-30 2018-03-30 Outpatient MHIE MHIE [id number] Memoria 13:30:00 13:30:00 00 bonnie Seay 2018-03-30 2018-03-30 Outpatient MHIE MHIE [id number] Memoria 13:30:00 13:30:[facility] 2018-03[facility] 2018-03-[address] [facility] [id number] Memoria 19:01:00 04:59:00 Surgery r Dawood 01 l [facility] 2018-03-21 2018-03-[address] [facility] [id number] Memoria 19:01:00 04:59:00 Surgery r Dawood 01 l Orthopedic [facility] 2018-03-21 2018-03-21 Outpatient Kimberly Ng [facility] [id number] 14:01:00 23:59:00 Han 01 2015-11-08 2015-11-[address] [facility] [id number] Memoria 18:06:00 21:20:00 Outpatient r [place] 00 l [place] 2015-11-08 2015-11-[address] [facility] [id number] Memoria 18:06:00 21:20:00 Outpatient r [place] 00 l [place] 2015-11-08 2015-11-08 Outpatient Guerrero, [facility] [id number] 12:06:00 15:20:00 Sheilendra 00 [facility] 2015-10-24 2015-10-25 Outpt Diag nullFlavo [facility] [id number] Memoria 15:50:00 05:59:00 Services r Outpatient 00 l Imaging [place] 2015-10-24 2015-10-25 Outpt Diag nullFlavo [facility] [id number] Memoria 15:50:00 05:59:00 Services r Outpatient 00 l Imaging [place] 2015-10-24 2015-10-24 Outpatient Yolanda, [facility] [id number] 09:50:00 23:59:00 Sheilendra 00 [facility] Results Test Description Test Time Test Comments Results Result Comments Source Anti-Xa Level 2023-02-16 18:11:00 Test Item Value Reference Range Interpretation Comme nts Anti-Xa Level (test code 1.45 See_Comment H Ant i-Xa Level (Heparin = 6128) assay for Low M olecular Weight Heparin) Monitoring Guidelines:Bloo d samples should be obtai idalia 4 hours post SC injecti on (time of peak level) The rapeutic peak levels: 0. 6 - 1 units/mL ( 1 mg /kg q 12hr and estimated C rCl>=30 mL/min) 0.6 - 1 units/mL ( 1 mg/kg q 24hr and estimated CrCl <30 mL/min) 1 - 2 units/mL (1.5 mg/kg q 24hr and miguel a mated CrCl>=30 mL/min ) Ref: Chest 2008; 133 ;141S-1598S [Automated mess age] The system which ge nerated this result tra nsmitted reference range : 0.00 - 0.10 unit/mL. T he reference range was not used to interpr et this result as diane l/abnormal. Hep Type (test code = Enoxaparin 5880) HEATHER (test code = HEATHER) Nurse please coordinate with lab to drawn Anti-Xa level (low molecular weight heparin level) 4 hours after 02/16/23 morning enoxaparin dose is given. Lab Interpretation (test Abnormal code = 99466-6) [facility] Cancer [facility] Glucose [id number] 17:09:21 Test Item Value Reference Interpretation Comments Range POC Glucose (test 211 mg/dL 70-99 H Capillary blood code = 5651) samples, e.g. obtained by fingerstick, ma y have inaccurate resu lts in patients with decreased perip heral blood flow. All POC Glucose screen test results, includ ing critical values , must be interpreted and evaluated in th e context of the patients clinical findi ngs. It is recommend ed to confirm any questionable te st results by core lab methodology. Me thod description: Al l results are soraya sured using Electrochemistr y test methodology. Th e glucose in the sample mixes with the reagents on the test strip. The reac tion produces an cristine ctric current. The am ount of current prod uced is proportional to the glucose concentration i n the blood. PO Sample Type (test Capillary code = 9554) Performing Lab (test [facility] code = 25499) [facility] Cli nical Lab, [address], [place] [address]; Lubricating Specialist: Margarita Jacob MD; Waived Point of Care Testing - Gabrielle aaron MD Lab Interpretation Abnormal (test code = 80270-1) [facility] [id number] 12:26:50 Test Item Value Reference Range Interpretation Comments Phosphorus (test code = 2777-1) 4.3 mg/dL 2.5-4.5 [facility] [id number] 16:10:55 Test Item Value Reference Range Interpretation Comments Final Report (test code = 8488) No growth [facility] Hospital[facility]onin2023-04-14 16:06:17 Test Item Value Reference Range Interpretation Comments Procalcitonin (test 0.38 ng/mL <=0.08 H Procalci tonin > 2.00 code = 78726-6) ng/mL: Proca lcitonin levels above 2. 00 ng/mL are highl y suggestive of a high risk for system atic bacterial infec tion/ severe sepsis a nd/or septic shock. Procalcitonin < 0.50 ng/mL: Procalci tonin levels below 0. 50 ng/mL are at lo w risk for progression to severe sepsis a nd/ or septic shock. Procalcitonin ( ProCT) between 0.15 an d 2.0 ng/mL do not ex clude infection, josé antonio use localized infec tions (without system ic signs) may be associated with such low levels. Res ults greater than 40 0 ng/mL may not b e reliable due to the matrix effect w ith extended diluti on as it exceeds the commercial attorney's recommended goldberg it. Caution should be exercised when interpreting agarwal ch values and done in conjunction wit h clinical contex t. Lab Interpretation Abnormal (test code = 45259-0) [facility] Add-On Test 2023-02-12 15:17:04 Test Item Value Reference Range Interpretation Comments Ordered (test code = 6568) Test Added Test Needed (test code = 7604) procalcitonin [facility] Hospital[facility]ine [id number] 12:16:45 Test Item Value Reference Range Interpretation Comments CK (test code = 2157-6) 125 U/L 26-192 [facility]/2 Antigen and Antibodies, Fourth [id number] 07:28:44 Test Item Value Reference Range Interpretation Comments HIV Ag/Ab, NON-REACTIVE NON-REACTIVE HIV-1 antigen a nd 4TH Gen (test HIV-1/HIV-2 an tibodies were code = 03873) notdetected. T here is no laboratory evid ence of HIVinfection. P SRINATH NOTE: This informatio n has been disclosed toyou from records whose confident iality may beprotected by state law. If your state requ ires suchprotection, then the state law prohi bits you frommaking any further disclosure of t he informationwith out the specific writte n consent of the personto om it pertains, or as otherwise permitted by maryjo dislaA general authorization f or the release of medi mari orother information is NOT sufficient for this purpose. For additional information please refer tohttp://educat ion.[employer]/faq /VQX560(This link is being p rovided for informational/e ducational purposes only.) The performance of this assay has not been clinicallyvalid ated in patients less t go 2 years old. Lab test p erformed by:Lab Mnemonic : [facility] [id number] [place] [address]GDUTX Christelle MELÉNDEZ MD [facility] HospitalUrine [id number] 13:51:10 Test Item Value Reference Range Interpretation Comments Final Report (test code = 10 - 50,000 cfu/ml A 8488) Normal site isabel present.Generally of low significance.Correl ate with clinical data and culture history. Lab Interpretation (test Abnormal code = 48989-8) [facility] HospitalGastrointestinal Multiplex Panel Path [id number] 21:40:55GIMP PRReviewed and Electronically signed by Pathologist:PATRICIA CHAVEZ MD #[id number] [facility]ENTERUnMem[facility] Herm[facility] HospitalClostridium Difficile DNA Path Review 2023-02-07 21:35:15C diff DNA PRReviewed and Electronically signed by Pathologist:PATRICIA CHAVEZ MD #[id number] [facility] [place] [facility] NEWHALLUnMemorial Hermann Katy HospitalHepatitis B Surface [id number] 17:09:39 Test Item Value Reference Range Interpretation Comments HBsAg. (test code = 5747) Non Reactive Non Reactive [facility] HospitalHepatitis C Virus [id number] 16:29:30 Test Item Value Reference Range Interpretation Comments HCVAb. (test Non Reactive Non Reactive Antibody detect ion in the code = 5762) immunocompromis ed and immunosuppresse d population may be delayed or absent entirely. There fore serial testing, correl ation with other clinical findings, and supplementa l testing (if available) should be taken into cons ideration when interpreti ng the results. [facility] HospitalHepatitis B Total Ig Core Ab (SCREENING) (anti-HBc total Ig; HBcAb total Ig)2023-02-07 16:29:12 Test Item Value Reference Range Interpretation Comments HBcAb. (test code = 5742) Non Reactive Non Reactive [facility] HospitalClostridium Difficile DNA Assay 2023-02-07 14:32:28 Test Item Value Reference Range Interpretation Comments C difficile DNA (test Negative Negative code = 5134) C difficle Toxin EIA Test Not Performed Negative (test code = 8961) C difficile C. difficile DNA Interpretation (test code detection was = 7859008) negative making C. difficile infection highly unlikely in this patient. EIA not performed. [facility] HospitalGastrointestinal Multiplex Panel 2023-02-07 13:55:28 Test Item Value Reference Range Interpretation Comments Campylobacter (test code = Not Detected Not Detected 10331-7) C difficile DNA (GI Multi Refer to separate Panel) (test code = C. difficile DNA 31585-1) Assay for results Plesiomonas shigelloides Not Detected Not Detected (test code = 43860-2) Salmonella (test code = Not Detected Not Detected 67571-0) Vibrio (test code = Not Detected Not Detected 64169-7) Vibrio cholerae (test code Not Detected Not Detected = 51166-9) Yersinia enterocolitica Not Detected Not Detected (test code = 45624-5) Enteroaggregative E. coli Not Detected Not Detected (EAEC) (test code = 00425-4) Enteropathogenic E. coli Not Detected Not Detected (EPEC) (test code = 33561-6) Enterotoxigenic E. coli Not Detected Not Detected (ETEC) (test code = 02826-4) Shiga-like toxin-producing Not Detected Not Detected E. col (STEC) (test code = 62648-7) E. coli O157 (test code = Not Applicable Not Detected 45630-7) Shigella/Enteroinvasive E. Not Detected Not Detected coli (EIEC) (test code = 26291-5) Cryptosporidium (test code Not Detected Not Detected = 07379-3) Cyclospora cayetanensis Not Detected Not Detected (test code = 02686-9) Entamoeba histolytica Not Detected Not Detected (test code = 75840-7) Giardia lamblia (test code Not Detected Not Detected = 98893-2) Adenovirus F 40/41 (test Not Detected Not Detected code = 80644-8) Astrovirus (test code = Not Detected Not Detected 53329-2) Norovirus GI/GII (test Not Detected Not Detected code = 99720-2) Rotavirus A (test code = Not Detected Not Detected 32459-4) Sapovirus (I, II, IV and Not Detected Not Detected V) (test code = 36951-8) [facility] HospitalFerritin [id number] 13:31:20 Test Item Value Reference Range Interpretation Comments Ferritin Lvl (test code = 2276-4) 320 ng/mL 13-150 H Lab Interpretation (test code = Abnormal 80058-9) [facility] HospitalTransferrin with [id number] 13:25:21 Test Item Value Reference Range Interpretation Comments Transferrin (test code 205 mg/dL 200-360 = 3034-6) TIBC (test code = 287 See_Comment [Automate d message] 2500-7) The system whic h generated this result transmitted ref erence range: 250 - 45 0 mcg/dL. The ref erence range was not u sed to interpret this result as normal/abnor mal. [facility] HospitalIron [id number] 13:25:20 Test Item Value Reference Range Interpretation Comments Iron (test code = 51 See_Comment [Automate d message] The 2498-4) system which ge nerated this result transmit kaylie reference range : 37 - 145 mcg/dL. The ref erence range was not used to interpret this result as normal/abnormal . [facility] HospitalLipid [id number] 13:23:33 Test Item Value Reference Range Interpretation Comments Chol (test code = 137 mg/dL <=199 ATP III Cl assification 3-3) of Total Choles terol Primary Target of Therapy (in mg/dL):<200 Hrrqocjvf587-91 9 Borderline high >=240 High Trig (test code = 184 mg/dL <=149 H ATP III Cl assification 2571-8) of Serum Trigly cerides Primary Target of Therapy (in mg/dL):<150 Cakyrx701-482 Borderline high 200-499 High>=500 Very highNon-fasting triglycerides > 200 mg/dL may be fo llowed up with a fasti ng Lipid Panel. Calculated LDL- C may be falsely decr eased when non-fastin g triglycerides > 200 mg/dL. HDL (test code = 27 mg/dL >=40 L 2085-07) LDL (test code = 73 mg/dL <=100 ATP III Cla ssification 26541-1) of LDL Choleste rol Primary Target of Therapy (in mg/dL):<100 Bksuewc511-743 Near optimal/above lragscc480-066 Borderline high 160-189 High>=190 Very high VLDL (test code = 37 mg/dL 15916-1) Lab Interpretation Abnormal (test code = 51470-4) [facility] HospitalHemoglobin [id number] 12:22:20 Test Item Value Reference Range Interpretation Comments A1C (test code = 4548-4) 10.2 % 4.3-5.6 H HbA 1c values >=6.5% are diagnostic of diabetes mellitus.Diagno sis should be confi rmed by repeat testing.Therape utic Action suggeste d: >8.0% HbA1c; Go al oftherapy: <7.0 % HbA1c Lab Interpretation (test Abnormal code = 96179-4) [facility] HospitalCRP2023-04-08 17:26:26 Test Item Value Reference Range Interpretation Comments CRP (test code = 65.62 mg/[place] [address]-0) CRP assay are a s follows: Reference range s when used to assess cardi ac risk: <1.00 mg/L Low cardiovascular risk 1.00-3.00 mg/L Average cardiovascular risk >3.00 mg/L High cardi ovascular risk.Reference ranges when used to assess inflammatory re sponses: Less than or eq ual to 10.00 mg/L. [facility] HospitalNT-Pro BNP (In-House)2023-02-06 17:14:43 Test Item Value Reference Range Interpretation Comments NT ProBNP (test code = 52042-9) 83 pg/mL <=125 [facility] HospitalTroponin T (In-House)2023-02-06 06:39:52 Test Item Value Reference Range Interpretation Comments Troponin T (test code 10 ng/L <=19 < 19 n g/L Suggest retest = 15631-9) at 3 to 6 hours later to rule out myocar dial infarction >= 1 9 to <=52 ng/L Possible m yocardial injury. Suggest retest at 3 hours. - a ch pinky of < 20 ng/L, retest at 6 hours - a goff e of >= 20 ng/L, suggestiv e of myocardial infa rction > 52 ng/L Suggest rosales of myocardial infa rction Critical value will be reported when c Tomer is > 52 ng/L and onl y reported for the first i n a series. Hemolyz ed specimens with Hemolysis Index >100 (100 mg/dl or moderate hemoly sis) may cause interfere nces and falsely low res ults. [facility] HospitalUrinalysis with Microscopic 2023-02-06 05:50:41 Test Item Value Reference Range Interpretation Comments UA Color (test code = [place] Straw-Yellow A 14119-8) UA Appear (test code = Cloudy Clear A 86267-2) UA Glucose (test code 500 mg/dL NEG A = 5792-7) UA Bili (test code = NEG NEG 5770-3) UA Ketones (test code 40 mg/dL NEG A = 5797-6) UA Spec Grav (test 1.021 1.003-1.035 code = 5810-7) UA Blood (test code = NEG NEG 5794-3) UA pH (test code = 6.0 5.0-9.0 5803-2) UA Protein (test code 20 mg/dL NEG A = 5804-0) UA Urobilinogen (test NEG NEG code = 5818-0) UA Nitrite (test code NEG NEG = 5802-4) UA Leuk Est (test code NEG NEG = 5799-2) UA WBC (test code = NOT SEEN See_Comment Some rep orting 02489-4) parameters with in the Urinalysis test have changed due to the implementation of new instrumentation in the [facility] greater sensiti vity of measurement. Urinalysis resu lts reported by the [facility] enters using existing instrumentation , as well as Urinaly sis testing perform ed manually or by backup methodology at the [facility] chino l remain relative ly unchanged. New reporting asha eters and units will not be reported for al l campuses. [Auto mated message] The sy stem which generated this result transmit kaylie reference range : 0 - 2 /HPF. The refer ence range was not u sed to interpret this result as normal/abnor mal. UA RBC (test code = 13 See_Comment H [Automa kaylie message] 26872-4) The system FRUCT generated this result transmitted ref erence range: 0 - 2 /H PF. The reference range was not used to int erpret this result as normal/abnormal . UA Mucous (test code = NOT SEEN Not Seen-Trace 57889-0) /HPF UA Bacteria (test code NOT SEEN NOT SEEN /HPF = 64558-3) UA Squam Epi (test OCC None-Occasional code = 09450-3) /HPF Lab Interpretation Abnormal (test code = 59201-8) [facility] HospitalaPTT2023-04-08 02:32:47 Test Item Value Reference Range Interpretation Comments aPTT (test code = 28.5 See_Comment [Automate d message] The 71792-7) system which ge nerated this result transmit kaylie reference range : 22.8 - 34.2 second(s). The reference range was not used to interpr et this result as diane l/abnormal. [facility] HospitalProthrombin Time with [id number] 02:32:46 Test Item Value Reference Range Interpretation Comments PT (test code = 5902-2) 14.7 See_Comment H [Au tomated message] The system FRUCT generated this result transmitted ref erence range: 11.9 - 1 4.1 second(s). The reference range was not used to int erpret this result as normal/abnormal . INR (test code = 6301-6) 1.16 0.89-1.10 H Lab Interpretation (test Abnormal code = 82462-9) [facility] HospitalD [id number] 02:32:45 Test Item Value Reference Range Interpretation Comments D-Dimer (test code = 3.04 See_Comment H [place] [address]-8) exclusion of ve nous thromboembolism is <0.51 mcg/mL FEUs (fi brinogen equivalent unit s). [Automated mess age] The system which ge nerated this result tra nsmitted reference range : 0.10 - 0.50 mcg/ml FEU . The reference range was not used to interpr et this result as normal/abnormal . Lab Interpretation Abnormal (test code = 47163-2) [facility] HospitalVB [id number] 01:31:58 Test Item Value Reference Range Interpretation Comments V Lactate (test code = 2519-7) 1.2 mmol/L 0.5-1.6 [facility] HospitalCOVID-19 (SARS-CoV-2)Xewtyokdawnr-[id number] 23:01:01 Test Item Value Reference Range Interpretation Comments COVID19 Not Detected Not Detected (SARS-CoV-2) (test code = 46789-4) COVID19 SARS Inpatient Indication (test Admission code = 78082) Covid 19 Comment See Note The ruby S ARS-CoV-2 (test code = [place] [address]) use on the jeanne s Chastity System is a carol l-time RT-PCR assay in tended for the qualita tive detection of SARS-CoV-2 (COV ID-19) viral RNA in nasopharyngeal swabs from either individuals shantal pected of COVID-19 by their healthcare prov ider or from any individual, inc luding individuals wit hout symptoms or oth er reasons to susp ect COVID-19. A fac t sheet for patie nts provided by the commercial attorney ([employer]) can be rev iewed at: https://www.fda .gov/m edia/763163/otf nload. A fact sheet fo r Health Care pro viders is provided by the commercial attorney ([employer]) and can be reviewed at: https://www.fda .gov/ edia/084892/otf nload Results must be interpreted wit hin the context of all relevant clinic al and laboratory find ings and should not form the sole basis for a diagnosis or treatment decis ion. Positive result s do not rule out bacterial infec tion or co-infection with other viruses. Negative result s do not preclude SARS-CoV-2 infe ction and must be com bined with clinical observations, p atient history, and/or epidemiological information. Th is assay has been authorized by t [facility] for use only un teetee Emergency Use Authorization ( EUA) in laboratories that have been CLIA-certified to perform moderate-comple xity and high-comple xity tests. The Microbiology Laboratory at [facility], CLIA Accreditation #[id number] and CAP Accreditation #[id number], verif ied the performance characteristics of this assay. Int ernal controls are us ed to monitor all sta ges of the test proces s. [facility] HospitalCKMB2023-04-07 21:13:54CK MB<2.0<=5.3 ng/mLUT BANNERUnMemorial Hermann Katy HospitalLipase2023-04-07 21:08:09 Test Item Value Reference Range Interpretation Comments Lipase Lvl (test code = 3040-3) 18 U/L 13-60 [facility] HospitalAmylase [id number] 21:08:08 Test Item Value Reference Range Interpretation Comments Amylase Lvl (test code = 1798-8) 43 U/L 28-100 [facility] HospitalHematocrit2023-03-30 13:50:44 Test Item Value Reference Range Interpretation Comments Hct (test code = 4544-3) 40.6 % 37.0-47.0 [facility] HospitalHemoglobin2023-03-30 13:50:43 Test Item Value Reference Range Interpretation Comments Hgb (test code = 13.3 See_Comment [Automated message] The 718-7) system which ge nerated this result transmit kaylie reference range : 12.0 - 16.0 gm/dL. The reference range was not u sed to interpret this result as normal/abnormal . [facility] HospitalTetrahydocannabinol (THC), Quantitative, [id number] 19:13:38 Test Item Value Reference Range Interpretation Comments U THC GC/MS-[place] n/a (test code = 7812) U THC [facility] see note Carboxy-TH C Confirmation, (test code = 7813) U: Carbox y-THC Interpretation: Positive ADDITIONAL INFO RMATION:This report is inten ded for use in clinical mon itoring andmanagement o f patients. It is not inten ded for use inemployment-re lated testing.------- ------Delta- 8 Carboxy-Tetrahy drocannabino l by LC-MS/MS: 672 ng/mLReference Value: Cutoff: 5 Delta -9 Carboxy-Tetrahy drocannabino l by LC-MS/MS: 42 ng/mLReference Value: Cutoff: 5 ======PERFORMIN G LAB:[facility] [address] [address] 03 Moe Guzman M.D. Ph.D. [id number] U THC [facility] n/a (test code = 7811) [facility] CenterUrinalysis Microscopic Exam 2023-01-27 04:26:48 Test Item Value Reference Range Interpretation Comments UA WBC (test code = 6 See_Comment H Some rep orting 16062-6) parameters with in the Urinalysis test have changed due to the implementation of new instrumentation in the [facility] [place], al lowing greater sensiti vity of measurement. Urinalysis resu lts reported by the [facility] C enters using existing instrumentation , as well as Urinaly sis testing perform ed manually or by backup methodology at the [facility] [place] chino l remain relative ly unchanged. New reporting asha eters and units will not be reported for [facility] campuses. [Auto mated message] The sy stem which generated this result transmit kaylie reference range : 0 - 2 /HPF. The refer ence range was not u sed to interpret this result as normal/abnor mal. UA RBC (test code = See_Comment [Automa kaylie message] 87240-7) The system FRUCT generated this result transmitted ref erence range: 0 - 2 /H PF. The reference range was not used to int erpret this result as normal/abnormal . UA Mucous (test code = NOT SEEN Not Seen-Trace 62808-7) /HPF UA Bacteria (test code NOT SEEN NOT SEEN /HPF = 58247-4) UA Squam Epi (test OCC None-Occasional code = 68800-9) /HPF Lab Interpretation Abnormal (test code = 71531-0) [facility] HospitalUrinalysis w/Microscopic if [id number] 03:58:37 Test Item Value Reference Range Interpretation Comments UA Color (test code = 64544-7) Straw Straw-Yellow UA Appear (test code = 31863-1) Clear Clear UA Glucose (test code = 5792-7) 500 mg/dL NEG A UA Bili (test code = 5770-3) NEG NEG UA Ketones (test code = 5797-6) NEG NEG mg/dL UA Spec Grav (test code = 5810-7) 1.020 1.003-1.035 UA Blood (test code = 5794-3) NEG NEG UA pH (test code = 5803-2) 5.5 5.0-9.0 UA Protein (test code = 5804-0) 30 mg/dL NEG A UA Urobilinogen (test code = NEG NEG 5818-0) UA Nitrite (test code = 5802-4) NEG NEG UA Leuk Est (test code = 5799-2) NEG NEG Lab Interpretation (test code = Abnormal 59123-9) [facility] HospitalLDH2023-03-28 20:38:14 Test Item Value Reference Range Interpretation Comments LDH (test code = 289 U/L 135-214 H Results gre ater than 86014-7) 1651 U/L may no t be reliable due to matrix effect w ith extended diluti on as it exceeds the commercial attorney's recommended goldberg it. Caution should be exercised when interpreting agarwal ch values and done in conjunction wit h clinical contex t. Lab Interpretation (test Abnormal code = 68286-5) [facility] HospitalControlled Substance Monitoring Panel, [id number] 09:20:34 Test Item Value Reference Interpretation Comments Range Urine Creatinine 55.1 mg/dL (test code = 2161-8) Urine Specific 1.014 [place] (test code = 5810-7) Urine Ph (test 6.2 code = 2756-5) Urine Oxidants Negative Cutoff: 200 (test code = mg/L 54410-8) Urine Comment Normal (test code = 21316-2) U Negative Cutoff: 200 Barbiturates-Luu ng/mL (test code = 57445-6) U Cocaine Lvl-Luu Negative Cutoff: 150 This coca ine immunoassay (test code = ng/mL targets benzoyl ecgonine 64040-1) theprimary meta bolite of cocaine. U THC-Luu (test See Cutoff: 50 A RESULT: Pre sumptive code = 86467-5) Footnote ng/mL PositiveThis immunoassay targets delta-9 tetrahydrocanna binolcarboxylic acid (THC-COOH) , a metabolite of delta-9tetra hydrocannabinol the main psycho active ingredient ofma rijuana. Drug confirmation to follow. PresumptivePosi tive means that the screening m ethod is positive, butth e test needs to be run by a con firmatory method beforebeing fin alized. ----ADDITIONAL INFORMATION---- T his report is i ntended for use in clinical mon itoring ormanagement of patients. It is not intended fo r use inemployment-re lated testing. Codeine (test code Not Cutoff: 25 Tylenol 3 = 33900-9) Detected ng/mL Edvdodu-7-srgw-glu Not Cutoff: 100 Metabolit e of codeine curonide (test Detected ng/mL code = 81445-8) Morphine (test Not Cutoff: 25 Avinza, Gayle n, MS Contin; Also code = 74528-0) Detected ng/mL a minor meta bolite (10%) ofcodeine and c an be seen in low concentrati ons (<2,000ng/mL) w ith poppy seed ingestion. Utjjowjg-8-ucvo-gl Not Cutoff: 100 Metabolit e of morphine ucuronide (test Detected ng/mL code = 26643-4) 6-monoacetylmorphi Not Cutoff: 25 Metabolit e of heroin ne (test code = Detected ng/mL 05259-6) Hydrocodone (test Not Cutoff: 25 Lortab, No rco, Vicodin; Also a code = 56285-5) Detected ng/mL very minor m etabolite ofcodeine and impurity (< 1%) of oxycodone. Norhydrocodone Not Cutoff: 25 Metabolite of hydrocodone (test code = Detected ng/mL 98346-8) Dihydrocodeine Not Cutoff: 25 Metabolite of hydrocodone (test code = Detected ng/mL 73577-2) Hydromorphone Not Cutoff: 25 Dilaudid, Exal go; Also a (test code = Detected ng/mL metabolite of h ydrocodone and 73252-0) aminor (<5%) me tabolite of morphine. Ardzwchaaaxhi-5-uh Not Cutoff: 100 Metabolit e of hydromorphone ta-glucuronide Detected ng/mL (test code = 87904-7) Oxycodone (test Present Cutoff: 25 A Endocet, Per cocet, Oxycontin code = 19751-8) ng/mL Noroxycodone (test Present Cutoff: 25 A Metabolit e of oxycodone code = 09623-1) ng/mL Oxymorphone (test Not Cutoff: 25 Numorphan, Opana; Also a code = 46261-3) Detected ng/mL metabolite o f oxycodone. Yowahtswjpm-1-fyen Not Cutoff: 100 Metabolit e of oxymorphone -glucuronide (test Detected ng/mL and/or na loxone (nornaloxone) code = 09153-0) Noroxymorphone Present Cutoff: 25 A Metabolite of oxymorphone (test code = ng/mL and/or naloxone (nornaloxone) 81964-3) Fentanyl (test Not Cutoff: 2 Actiq, Durage sic, Fentora code = 07348-1) Detected ng/mL Norfentanyl (test Not Cutoff: 2 Metabolite of fentanyl code = 21685-4) Detected ng/mL Meperidine (test Not Cutoff: 25 Demerol code = 22837-6) Detected ng/mL Normeperidine Not Cutoff: 25 Metabolite of meperidine (test code = Detected ng/mL 67202-8) Naloxone (test Not Cutoff: 25 Narcan code = 63371-9) Detected ng/mL Lzqjfded-3-ylrn-gl Not Cutoff: 100 Metabolit e of naloxone ucuronide (test Detected ng/mL code = 38327-2) U Methadone (test Not Cutoff: 25 Dolophine code = 12293-2) Detected ng/mL EDDP (test code = Not Cutoff: 25 Metabolite of methadone 76132-4) Detected ng/mL Propoxyphene (test Not Cutoff: 25 Darvon, D arvocet code = 03471-3) Detected ng/mL Norpropoxyphene Not Cutoff: 25 Metabolite o f propoxyphene (test code = Detected ng/mL 62148-5) Tramadol (test Not Cutoff: 25 Tradol, Ultra m, Ultracet code = 78309-5) Detected ng/mL O-desmethyltramado Not Cutoff: 25 Metabolit e of tramadol l (test code = Detected ng/mL 65853-3) Tapentadol (test Not Cutoff: 25 Nucynta code = 49207-6) Detected ng/mL Nidakvcfkf-yhjy-ug Not Cutoff: 100 Metabolit e of tapentadol ucuronide (test Detected ng/mL code = 22385-7) Buprenorphine Not Cutoff: 5 Buprenex, Subo xone (test code = Detected ng/mL 58882-3) Norbuprenorphine Not Cutoff: 5 Metabolite of buprenorphine (test code = Detected ng/mL 62819-0) Norbuprenorphine Not Cutoff: 20 Metabolite of buprenorphine Glucuronide (test Detected ng/mL code = 32579-1) Benzodiazepine See Test detected the presence of Interp Urine (test Footnote alprazola m and two of code = 55862-7) itsmetabolit es (alpha-hydroxya lprazolam andalpha-hydrox yalprazolam glucuronide). S uspect use ofalprazolam wi thin the past three days. Hailey t detected the presence of zol pidem eetqez-8-carusd ylicacid (metabolite of zolpidem) only. Suspect use of zolpidemwithin the past four d ays. ----ADDITIONAL INFORMATION---- T his test was de veloped and its performance characteristics determined by [facility] in a manner consistent with CLIArequirement s. This test has not been cleare d or approved bythe U.S. Food and Drug Administration. Alprazolam Urine Present Cutoff: 10 A Xanax (test code = ng/mL 05433-4) Alpha-Hydroxyalpra Present Cutoff: 10 A Metabolit e of Alprazolam zolam Urine (test ng/mL code = 00416-3) Alpha-Hydroxyalpra Present Cutoff: 50 A Metabolit e of Alprazolam zolam Glucuronide ng/mL Urine (test code = 29607-0) Chlordiazepoxide Not Cutoff: 10 Librium Urine (test code = Detected ng/mL 00398-8) Colbazam Urine Not Cutoff: 10 Frisium, Onfi (test code = Detected ng/mL 00094-6) N-Desmethylclobaza Not Cutoff: 200 Metabolit e of Clobazam m Urine (test code Detected ng/mL = 34198-8) Clonazepam Urine Not Cutoff: 10 Klonopin, R ivotril (test code = Detected ng/mL 23736-8) 7-Aminoclonazepam Not Cutoff: 10 Metabolite of Clonazepam Urine (test code = Detected ng/mL 56455-5) Diazepam Urine Not Cutoff: 10 Valium (test code = Detected ng/mL 10748-9) Nordiazepam Urine Not Cutoff: 10 Metabolite of Chlordiazepoxide, (test code = Detected ng/mL Diazepam, or Pr azepam. 49490-8) Flunitrazepam Not Cutoff: 10 Rohypnol Urine (test code = Detected ng/mL 23317-7) 7-Aminoflunitrazep Not Cutoff: 10 Metabolit e of Flunitrazepam am Urine (test Detected ng/mL code = 45225-8) FlUrinerazepam Not Cutoff: 10 Dalmane Urine (test code = Detected ng/mL 29367-9) 2-Hydroxy Ethyl Not Cutoff: 10 Metabolite o f Flurazepam Flurazepam Urine Detected ng/mL (test code = 38990-7) Lorazepam Urine Not Cutoff: 10 Ativan (test code = Detected ng/mL 81492-6) Lorazepam Not Cutoff: 50 Metabolite of L orazepam Glucuronide Urine Detected ng/mL (test code = 69990-1) Midazolam Urine Not Cutoff: 10 Versed (test code = Detected ng/mL 64592-8) Alpha-Hydroxy Not Cutoff: 10 Metabolite of Midazolam Midazolam Urine Detected ng/mL (test code = 80581-3) Oxazepam Urine Not Cutoff: 10 Serax; Also a metabolite of (test code = Detected ng/mL Chlordiazepoxid e, Diazepam, 95108-2) orTemazepam. Oxazepam Not Cutoff: 50 Metabolite of O xazepam Glucuronide Urine Detected ng/mL (test code = 25107-3) Prazepam Urine Not Cutoff: 10 Centrax (test code = Detected ng/mL 53862-1) Temazepam Urine Not Cutoff: 10 Restoril; Al so a metabolite of (test code = Detected ng/mL Diazepam. 64980-5) Temazepam Not Cutoff: 50 Metabolite of T emazepam Glucuronide Urine Detected ng/mL (test code = 36535-3) Triazolam Urine Not Cutoff: 10 Halcion (test code = Detected ng/mL 45498-1) Alpha-Hydroxy Not Cutoff: 10 Metabolite of Triazolam Triazolam Urine Detected ng/mL (test code = 12449-1) Zolpidem Urine Not Cutoff: 10 Ambien (test code = Detected ng/mL 48172-0) Zolpidem Present Cutoff: 10 A Metabolite of Z olpidem Koicj-3-Wyettbecwy ng/mL Acid Urine (test code = 86626-0) Methamphetamine Not Cutoff: 100 Desoxyn (test code = Detected ng/mL 56903-7) Amphetamine (test Not Cutoff: 100 Dyanavel X R, Adzenys ER, code = 20720-6) Detected ng/mL Adderall, Vy vanse; Also ametabolite of methamphetamine 3,4-Methylenedioxy Not Cutoff: 100 methamphetamine Detected ng/mL (MDMA) (test code = 33055-5) 3,4-Methylenedioxy Not Cutoff: 100 -N-Ethylamphetamin Detected ng/mL e (MDEA) (test code = 90761-3) 3,4-Methylenedioxy Not Cutoff: 100 Also a me tabolite of MDMA amphetamine (MDA) Detected ng/mL and/or MDE A (test code = 26989-2) Ephedrine (test Not Cutoff: 100 code = 53957) Detected ng/mL Pseudoephedrine Present Cutoff: 100 A Sudafed (test code = ng/mL 28584) Phentermine (test Not Cutoff: 100 Adipex-P, Lomaira, Qsymia code = 35651-4) Detected ng/mL Phencyclidine Not Cutoff: 20 (PCP) (test code = Detected ng/mL ) Methylphenidate Not Cutoff: 20 Ritalin, Con certa (test code = Detected ng/mL 66447-2) Ritalinic acid Not Cutoff: 100 Metabolite of methylphenidate (test code = Detected ng/mL 45629) Stimulant See Test detected t he presence of Interpretation Footnote pseudoephedri ne. Suspect useof (test code = pseudoephedrine within the past 42490-2) three days. ----ADDITIONAL INFORMATION---- T his test was de veloped and its performance characteristics determined by [facility] in a manner consistent with CLIArequirement s. This test has not been cleare d or approved bythe U.S. Food and Drug Administration. Test Performed by:[facility] [address] [place], [place] [address]Yjh Dir ronnie: Moe Guzman M.D. Ph.D.; CLIA# [id number] Patients Current NOT ---------ADDITIONAL Medications (test ANSWERED INFORMATIO N A code = 89879-0) ccuracy and completeness of declared medica tions onreports solely dependen t on information submitted bycli ent. Lab Interpretation Abnormal (test code = 78469-6) [facility] Urine Drug [id number] 18:30:48 Test Item Value Reference Range Interpretation Comments POC U Amp (test code Negative Negative Drug Ab use Cutoff = 07075-0) Concentration: Cutoff: 1000 ng /mL POC U Barbit (test Negative Negative Drug Abus e Cutoff code = 93871-0) Concentratio n: 300 ng/mL POC U Benzo (test Positive Negative A Drug Abuse Cutoff code = 11050-4) Concentratio n: Cutoff: 300 ng/ mL POC U Cocaine (test Negative Negative Drug Abu se Cutoff code = 61924-4) Concentratio n: Cutoff: 300 ng/ mL POC U THC (test code Positive Negative A Drug Ab use Cutoff = 6709) Concentration: Cutoff: 50 ng/m L POC U Methd (test Negative Negative Drug Abuse Cutoff code = 6701) Concentration: Cutoff: 300 ng/ mL POC U Mampht (test Negative Negative Drug Abus e Cutoff code = 10284-2) Concentratio n: Cutoff: 1000 ng /mL POC U Opiate (test Negative Negative Drug Abus e Cutoff code = 83080-3) Concentratio n: Cutoff: 2000 ng /mL POC U Oxycod (test Positive Negative A Drug Abus e Cutoff code = 68508-6) Concentratio n: Cutoff: 100 ng/ mL Due to the assa y cross reactivit y between Oxycodo ne and Opiates, an d lower sensitivi ty compared to GC- MS method, the hailey t results may be falsely positiv e or falsely negative. Confirmation wi concurrent GC-M S results is recommended. POC U PCP (test code Negative Negative Drug Ab use Cutoff = 58716-3) Concentration: Cutoff: 25 ng/m L POC U TCA (test code Negative Negative Drug Ab use Cutoff = 83344-6) Concentration: Cutoff: 1000 ng /mL POC U PPX (test code Negative Negative Drug Ab use Cutoff = 75068-8) Concentration: Cutoff: 300 ng/ mL Method description: Th e one step multi-drug scre en test card with integrated iCup is an immunoassay based competiti ve binding assay. Drugs which may be present in the urine specimen compete against their respectiv e drug conjugate for binding sites o n their specific antibody. Durin g testing, a urin e specimen migrat es upward by capillary actio n. The presence of drug above the cut-off concentration w ill saturate all th e binding sites o f the antibody. T he antibody will react with the drug-protein conjugate and a visible colored line will show up in the test region. A drug-positive urine specimen will not genera te a colored line in the specific te st region of the strip because o f drug competitio n, while a drug-negative urine specimen will generate a line in the hailey t region because of the absence of drug competitio n. HEATHER (test code = The POC Urine HEATHER) Qualitative Drug Screen Panel report is intended for use in clinical monitoring or management of patients. Unconfirmed screening results must not be used for non-medical purposes such as legal or employment-relate d testing. Lab Interpretation Abnormal (test code = 38635-6) [facility] SteensCOVID-19 (SARS-CoV-2) PCR- Asymptomatic [id number] 03:09:25 Test Item Value Reference Range Interpretation Comments COVID19 (SARS Not Detected Not Detected CoV-2) Result (test code = __This test is a 03777-0) qualitative reverse-transcr iptase polymerase alanna n reaction (RT-PC R) developed for t he Myrna RUBY 680 0 system and inte nded for qualitative detection of SA RS CoV-2 RNA in nasopharyngeal and oropharyngeal s wab specimens colle cted from any indivi duals, including those suspected of CO VID-19 by their health care provider, and t hose without symptom s or other reasons t o suspect COVID-1 9. A fact sheet for patients provid ed by the manufacture r ([employer]) c an be reviewed at:https://www. fda.gov /media/877640/d ownload . A fact sheet for Health Care pro viders is provided by the commercial attorney ([employer]) and can be reviewed at: https://www.fda .gov/me juliet/586348/down load Results must be interpreted wit hin the context of all relevant clinic al and laboratory find ings and should not form the sole basis for a diagnosis or tr eatment decision. Posit rosales results do not rule out bacterial infection or co-infection wi th other viruses. Negative result s do not rule out SARS-CoV-2 and must be combined with c linical observations, p atient history, and/or epidemiological information. "Presumptive Po sitive" results are due to partial amplifi cation of SARS-CoV-2 t argets and indicates l ow amounts of viru s present in the specimen at or near the limit of detection. Rega rdless, individuals wit h "Presumptive Po sitive" results should be managed per institutional guidelines as individuals pos itive for SARS-CoV-2 virus, including use o f appropriate inf ection control protoco ls. Internal contro ls are included to ass ess for possible amplif ication inhibitors. If inhibition is detected, testi ng is repeated and if inhibition is confirmed the s pecimen is resulted as "Invalid". When an "Invalid" resul t occurs, it is recommended to wait 3 days before sub mitting a new specimen for testing if clin ically indicated. This assay has been approv ed by the FDA for use only under Emergency Use Authorization ( EUA) in laboratories th at have been CLIA-certi fied to perform moderate-comple xity and high-comple xity tests. The perf ormance characteristics of this assay were verified by the Microbiology Laboratory at [facility], CLIA Accreditation # : [id number] and CAP Accreditation # : [id number]. 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 The reference r pinky was not used to interpret this result as normal/abnormal . pO2 Raghavendra (test code = 52 mmHg 5-2) HCO3 Raghavendra (test code = 29 mmol/L 21-28 H 41319-1) Base Excess Raghavendra (test 3 mmol/L -2-3 code = 1927-3) O2 Sat Raghavendra (test code = 87 % 2711-0) Lab Interpretation (test Abnormal code = 48630-0) [facility] [id number] 00:17:35 Test Item Value Reference Range Interpretation Comments UA Ketones (test code = 5797-6) NEG NEG mg/dL [facility] [id number] 21:37:06 Test Item Value Reference Range Interpretation Comments POC Critical Comment See Note Test pe rformer notified (test code = 8955) Ordering Licensed Provider and /o r designee of POC Glucose Screen critical Results.. [facility] [id number] 03:40:13 Test Item Value Reference Range Interpretation Comments POC VB pH (test code 7.46 7.31-7.41 H = 6-6) POC VB pCO2 (test 42 See_Comment [Automate d message] code = 2021-01) The system OKpanda generated this result transmitted ref erence range: 41 - 51 mmHg. The reference r pinky was not used to interpret this result as normal/abnor mal. POC VB pO2 (test 61 mmHg code = 5-2) POC VB TCO2 (test 31 See_Comment H [Automate d message] code = 2026-11) The system OKpanda generated this result transmitted ref erence range: 24 - 29 mEq/L. The reference r pinky was not used to interpret this result as normal/abnor mal. POC VB Bicarb (test 30 mmol/L 23-28 H code = 41246-2) POC VB Base Ex (test 5 mmol/L -2-3 H code = 1927-3) POC VB O2 Sat (test 92 % code = 2711-0) POC VB LAC (test 2.4 mmol/L 0.9-1.7 H Method desc ription: code = 2519-7) The i-STAT is an analyzer used f or in vitro quantific ation of various anal ytes in whole blood. The device uses a s angelique disposable cart ridge which contains microfabricated sensors, a calibration kaye ution, fluidics system , and a waste chamber . Each test cartridge contains chemic ally sensitive biose nsors on a silicon [employer] ip that are config ured to perform spec ific tests. The microfabricated sensors measure analyte concent ration by an electroch emical assay. POC Sample Type Venous (test code = 6690) POC Clean Dev (test Yes code = 6672) Performing Lab (test MDA Main Main Ca mpus code = 40468) [facility] Cli nical Lab, [address], [place] [address]; Lubricating Specialist: Margarita Jacob MD; Waived Point of Care Testing - Gabrielle aaron MD Lab Interpretation Abnormal (test code = 87577-1) [facility] [id number] 00:46:13 Test Item Value Reference Range Interpretation Comments Ammonia (test code = 18 See_Comment [Autom ated message] The 71747-1) system which ge nerated this result tra nsmitted reference range : 11 - 51 mcmol/L. The re ference range was not u sed to interpret this result as normal/abnormal . [facility] Specimen Collection -[id number] 16:59:59 Test Item Value Reference Range Interpretation Comments Molecular Diagnostics (Received) Yes (test code = 8400) Jael Ap Link (test code = 06975) [id number] Block Number (Qualitative) (test BLANK code = 8193) Outside Accession (Qualitative) [id number] (test code = 8405) [facility] PTEN Mutation Material Request 2022-12-04 14:02:11 Test Item Value Reference Range Interpretation Comments Archived Material The test is to be (test code = 37100) performed on tissue from case [id number]. The case report, slides, and blocks for the cited accession were retrieved from archives. The pathologist examined the candidate H&E slide and selected the block appropriate to the specifications of the ordered molecular analysis. Unstained slides and H&E slide were prepared and forwarded to Molecular Diagnostic Laboratory where the subject molecular test will be performed. Results will be reported separately. Pathologist Signature [facility] ALK Mutation Analysis Material [id number] 14:02:06 Test Item Value Reference Range Interpretation Comments Archived Material The test is to be (test code = 30077) performed on tissue from case [id number]. The case report, slides, and blocks for the cited accession were retrieved from archives. The pathologist examined the candidate H&E slide and selected the block appropriate to the specifications of the ordered molecular analysis. Unstained slides and H&E slide were prepared and forwarded to Molecular Diagnostic Laboratory where the subject molecular test will be performed. Results will be reported separately. Pathologist Signature [facility] EGFR Mutation Material Request 2022-12-04 14:02:01 Test Item Value Reference Range Interpretation Comments Archived Material The test is to be (test code = 20688) performed on tissue from case [id number]. The case report, slides, and blocks for the cited accession were retrieved from archives. The pathologist examined the candidate H&E slide and selected the block appropriate to the specifications of the ordered molecular analysis. Unstained slides and H&E slide were prepared and forwarded to Molecular Diagnostic Laboratory where the subject molecular test will be performed. Results will be reported separately. Pathologist Signature [facility] ERBB2 Mutation Analysis Material [id number] 14:01:56 Test Item Value Reference Range Interpretation Comments Archived Material The test is to be (test code = 73678) performed on tissue from case [id number]. The case report, slides, and blocks for the cited accession were retrieved from archives. The pathologist examined the candidate H&E slide and selected the block appropriate to the specifications of the ordered molecular analysis. Unstained slides and H&E slide were prepared and forwarded to Molecular Diagnostic Laboratory where the subject molecular test will be performed. Results will be reported separately. Pathologist Signature [facility] MTOR Mutation Material Request 2022-12-04 14:01:51 Test Item Value Reference Range Interpretation Comments Archived Material The test is to be (test code = 18480) performed on tissue from case [id number]. The case report, slides, and blocks for the cited accession were retrieved from archives. The pathologist examined the candidate H&E slide and selected the block appropriate to the specifications of the ordered molecular analysis. Unstained slides and H&E slide were prepared and forwarded to Molecular Diagnostic Laboratory where the subject molecular test will be performed. Results will be reported separately. Pathologist Signature [facility] NTRK1 Fusion Material Request 2022-12-04 14:01:46 Test Item Value Reference Range Interpretation Comments Archived Material The test is to be (test code = 38344) performed on tissue from case [id number]. The case report, slides, and blocks for the cited accession were retrieved from archives. The pathologist examined the candidate H&E slide and selected the block appropriate to the specifications of the ordered molecular analysis. Unstained slides and H&E slide were prepared and forwarded to Molecular Diagnostic Laboratory where the subject molecular test will be performed. Results will be reported separately. Pathologist Signature [facility] NTRK2 Fusion Material Request 2022-12-04 14:01:41 Test Item Value Reference Range Interpretation Comments Archived Material The test is to be (test code = 75973) performed on tissue from case [id number]. The case report, slides, and blocks for the cited accession were retrieved from archives. The pathologist examined the candidate H&E slide and selected the block appropriate to the specifications of the ordered molecular analysis. Unstained slides and H&E slide were prepared and forwarded to Molecular Diagnostic Laboratory where the subject molecular test will be performed. Results will be reported separately. Pathologist Signature [facility] NTRK3 Fusion Material Request 2022-12-04 14:01:36 Test Item Value Reference Range Interpretation Comments Archived Material The test is to be (test code = 62028) performed on tissue from case [id number]. The case report, slides, and blocks for the cited accession were retrieved from archives. The pathologist examined the candidate H&E slide and selected the block appropriate to the specifications of the ordered molecular analysis. Unstained slides and H&E slide were prepared and forwarded to Molecular Diagnostic Laboratory where the subject molecular test will be performed. Results will be reported separately. Pathologist Signature [facility] Outside Interpretation 2022-11-27 23:08:26 Test Item Value Reference Range Interpretation Comments Materials Received (test z0civSNrQOAhhZVmVrPa code = 9973) LIOdTIRew4ekFNIpoIJf ZzEwMzNcZnRuYmpcdWMx DPLaPdRcg0mog165fFEn p1saADGeBhP0fLArMGGe hTGfA875CQSbNVnjk8yw w1NjKDVebCFtd9P9PYXF kspckQb0dHbpX64ep0O5 XgtrX3dqRTIcDLWhQ2Mc KR5cBPSgDyf9MCU7ZUR0 FBUbIXVjN3KrCD7uJRYp dNUuIIa2d9qzgOpkGLPf JDU0v2pjEFfxkgCkEO5t jh2sgYc0y0aqltXtHDFh EMRzpAIPQETgN8KohUkt Dl8zfNa0iFxuZzuoIRV8 Oql9FN8hey99tnb4zTpw NGSmzklmIlX0ROcgCSMp mpevXKe2UUggLKSnvMhr MFxtYXJncjcyMFxtYXJn jHX3BVDtnPNzB7BbPGFs PYisTVYbqgd0JaHwDn9t mOCeoZmgEUhzl0zlp4zt rMCrEph0QZCsOwXeKrbx XKnvh0Nbd4mmYXOlvr6i PBP4rDPzqAeur3H0dBXf GTTfaCQxvjUwXFTlmb10 pPJttZVlsFEvgl6cntVk hQOlwULjDZC3tGKozaPr LFPpeGQcWIDtCJ4ppWCx LFIfrW5btigqSBOtBuYp asplOBMceOlcnjClSg4e xPoqVFK3YFzoI1rovM7f YcF7LSzuP3tmxC0rQVr1 JUxqfXT6FAOuoT6lAM3j vwuox2tgFtOnXT8fnmtj b6xsDeArAM4tsgq3i6un YMP0CSwqZURiNwC3pyT3 NDBcaGVhZGVyeTcyMFxm s921YGH0ReTyQZBzc9Sj M9RmmQfrW03nnPbyK39i RHEbxYwwfU1lfNvuzW7e VzAhWoUwIJv1nx36IWt0 chwidWyhHXb0riCoVDFt MTO5OTPadPYiHDTkE2s9 gdBdMDSpNAB9SSQerRNo JIDzX9c4oeTyRQQ4SZs6 cnBhZGRmdDNcdHJwYWRk YjBcdHJwYWRkZmIzXHRy vRKdfYDadKSjvT7pjIes VLAedMZiiG7hBIP4SHNx cmgzMjBcdHJoZHJcbHRy th26EHKbefLhcYSweIpt lWSyNWY9GAIhNJZgCUUy AYD5ULGqAqIqjgLaUMhe bGJyZHJiXGJyZHJzXGJy JMF6IBYwCbQkhgQhEIia bGJyZHJsXGJyZHJzXGJy DSV7GGIqRpFjzpVvQNlk bGJyZHJyXGJyZHJzXGJy RDE5BUAwVzWdvrSiAUsw bHBhZHQxMFxjbHBhZGZ0 Y1vbqXBiOHTfDTglrNNs LYBxW1xklOTtAWetKAOx cGFkZmwzXGNscGFkYjBc J2qhUTIsQfWmK4WjzJi4 MDAwXGNsdmVydGFsdFxj tVLeAJE6QVHqUKMyAQPr HWA3SSVvRzUharVvHTho bGJyZHJiXGJyZHJzXGJy FQY2QLTaAjWjjiFxWCte bGJyZHJsXGJyZHJzXGJy BNM4UQMiAjEbipNaEEge bGJyZHJyXGJyZHJzXGJy FTI0WUXgBdIboqMmSLhb bHBhZHQxMFxjbHBhZGZ0 O4sudTShVPFbRItlfXOy NOFpX0bcvQEfMZyjWXHn cGFkZmwzXGNscGFkYjBc X0aaITJtEsNdZ4GorNa1 NjAwXGNsdmVydGFsdFxj aPGhKYX9BZWbNPPnMSNx QNM3APIxKeAbogEyXUix bGJyZHJiXGJyZHJzXGJy TFM3EUEnFmYsmtAxDVos bGJyZHJsXGJyZHJzXGJy GJW9VZUwHzIdpjNdBPfs bGJyZHJyXGJyZHJzXGJy JFF2PTUqIoMnrtJrJGrf bHBhZHQxMFxjbHBhZGZ0 C9mkcCEmTDJsBMqdsPTh TDDoD1sfxTDvYJzlIAUv cGFkZmwzXGNscGFkYjBc L8rjSHDcPsOcN3AelTc3 IrQbSHUxabIqqW33Irba o9RcRJYcZMG7TOisFLwy bFxwbGFpblxmMVxmczIw PAfrnylwSZGwULvpF1ay YpRtBFHslEknEDstq7Zk XGYxXGNmMlxmczIwXGIg GULnBNFpzC2lDzmzL3Wk vK6wNLdaGmmiM9paFWTn v4ThmI3oSLhosTKfxlcr MVxmczIwXGxhbmcxMDMz IFvrF9thAvTmWGOyvHce MJdxn7UbHPHhOGLhTfrd spOvMZv2cdObHOWjmPbt wDZyPQevyySnjIvgh3Zi vzNrhUjjMYKsWSr2esXq rqcwgRu2fKFjmZblAXBn nLxwgZ4aKwRgZsHiPNbi bGFpblxmMVxmczIwXGxh gjbkSHHrGFmbA6btBwHd THQepOlrEKyou0LaXVKu JJVnXppuwxXyQZPhM78q bGVjdGVkXHBsYWluXGYx XGZzMjBcbGFuZzEwMzNc aGljaFxmMVxkYmNoXGYx HAgtT0waGbTuS4OnDFCq MuMvpFYcO1pdY2LtaUnn YXJkXGludGJsXHNzcGFy TQG4cNOadoHmuYPcwXNn YDJeBWsgJMC5pUFxzckt lNEhfadkIDgxovG8BBZp YWluXGYxXGZzMjBcbGFu ZzEwMzNcaGljaFxmMVxk FqAdEFZoWEhaK4joWwSk W1SdXSReNlEvAiROKONs aXZlZFxwbGFpblxmMVxm czIwXGxhbmcxMDMzXGhp A4sbEeCxFAFfoOpwNAaz c2JqPSQtGKAeRvacouYa ATf8zcFgDLYuiLquqJ19 Qmdpkk58JMMtm6xzIWHy F5HzfAHiKRIsuKMmBWwn MDhcdHJwYWRkZmwzXHRy cGFkZHIxMDhcdHJwYWRk ZnIzXHRycGFkZHQwXHRy zDRwXEY5A2x1boEoAGUv THn0ehXjYMUcCbYdmBVn LYF5JOl3NzrwyuJ2aYRl F4f8YnzfdaBoTKcomZIa ik42KFHkwwHdsOUgtTqa yFGpGCP6UZXjFPIiMKDd ATD7SPRqIsAjdqFeEEdf bGJyZHJiXGJyZHJzXGJy ABA6FHDbMoSojnSlUFdl bGJyZHJsXGJyZHJzXGJy GST1HWMpZbSeebEzMAik bGJyZHJyXGJyZHJzXGJy UFW0KKXdCbYxaaNwNJdv bHBhZHQxMFxjbHBhZGZ0 N9cyuDDgWZUuYCszeDKd XZYcZ4hjfVMkKSasRHNq cGFkZmwzXGNscGFkYjBc R7sfMIGbJxSkS9OgeWb0 MDAwXGNsdmVydGFsdFxj cADrYGB9XPVlMHGvJQWj CVB8AQHyTlNvuuFgIQel bGJyZHJiXGJyZHJzXGJy KAL3HIXeBnGvsuYyDUvl bGJyZHJsXGJyZHJzXGJy SJK5LLEqLmHkamSiKGgx bGJyZHJyXGJyZHJzXGJy FDK8HEBcTfDzwvKsHJji bHBhZHQxMFxjbHBhZGZ0 G5aglTPlFCYwCFedfDAz DTFiE6uebIThBUxoVQCp cGFkZmwzXGNscGFkYjBc C1yaKLDdObGjU6WrfNo3 NjAwXGNsdmVydGFsdFxj fCVmMAI6ETExZAKbWOZn WBC0GEDiArPkshVlDSib bGJyZHJiXGJyZHJzXGJy RQK7QNHcGbTefrLzMDhw bGJyZHJsXGJyZHJzXGJy PIO7VSCoXwXdhgMvQReg bGJyZHJyXGJyZHJzXGJy BED0VHJyVwVbrpDaCEsa bHBhZHQxMFxjbHBhZGZ0 R7vbvYVjYEVmARpztRKt QCHxV3zzgEFhHAbjILJf cGFkZmwzXGNscGFkYjBc V5htFVLdLlXgH3DjmXd8 GfDdTMAnckPjhU58Zwbb n3ZcTFXlCXK6ODtbZXid bFxwbGFpblxmMFxmczI0 XHBsYWluXGYxXGZzMjBc bGFuZzEwMzNcaGljaFxm QYccVjAjKNIrGLvtG4os FwMmU1VaSNLpGsUqON6t XnZ7UBQaFCyiKNR5MZUN PRKhGSXWK6XGDvnnAAGN V1XnqIccrU8rUcFrTeVi LLpnSY1bLHYxT0azrAWk WTQrEKBxS8lgFzOznT0q aFxmMVxjZjJcZnMyMFxs dHJjaFxjZWxsXHBhcmRc vI85Lwfyh6JnCBIzNXW5 MFxzMFxxbFxwbGFpblxm ATdzpnG8WFPkEIkwIPPy XGZzMjBcbGFuZzEwMzNc aGljaFxmMVxkYmNoXGYx IVdwP5csEbGhC3IcSBKa MjAgMTIvMTYvMjAyMlxw bGFpblxmMVxmczIwXGxh uordMPBbQYgzS1cuOvNj NILyiBvvTZpmv3SbRQKw OFRnChpctxYhHBs8rmFa XGNlbGxccGFyZFxpbnRi pXeqf1QwfvHcaRrmXADl XHFsXHBsYWluXGYwXGZz DpAteDflwY5hZtUhAlHa HReeZS4vQNYuR6zwrXBe EFCeKUMyA0vsBmKjrV2s aFxmMVxjZjJcZnMyMCAx MpK4CnCdWkRmhGcplC8e JiWqJjOaWXpiMJ1hTGHc K6pmtXDiUWCzOGRrF4ni BtEcjS5gzXdwSMqyXqJw ZnMyMFxsdHJjaFxjZWxs MMgstTXdTLHhy6qrZVYi FPJiuYDaZEC9uPXmtbKc tObriQbrfR1uObFjFoQb NFxwbGFpblxmMVxmczIw VLujfjiiFONzTFmtI4ah JsBmVJNukPszOMllq7Cn XGYxXGZzMjBccGFyfQ== Addendum 1 (test code = w5sibUIoPKHnyKAyIHZx 37) MnugnhCnZMQceEDbX1Ng borfQKjnTA5vBV9mhSyo tRXlnJPyCDZwOmXuu8bg y750pYBuk3drUQTPUIvx NJOCWUu9a9ikOPGYgatc jBi8zKmzE88qb2O8Glif K20tgTRzLFF1WUPeBEKc fBPeTMTpZFC5TDFbsOAp I0grOFRaYX3jxlosKBsa FGmeVLWqiZN3KNHktAQz U8PqBCLqYLtrQOYrcsl3 EiOtVl7kkURjwMboKZty YXJkXHBsYWluXGYxXGZz MjAgQXQgdGhlIHJlcXVl e1Muy9LfuQujJVTyHRU8 kW6cOEZpiWMsD4lbdvJ5 kGErKo0ziG53eE8kUUD4 pYCcLQSep7PtTEFlAZLk x5ZjIYJiMZ8oLQidaWPa xJKvgMOqNGC2KJ7FSBTq IFXqm77xTgZtaXDyPYTu qsRmwAApMOBtAGJ1zE1t ciBjZWxscyBhcmUgbmVn WPHpvsXmVs6fAXtckwAu PAJsTFJzgZRpaH36dm5t nFJ4v0PmHL7hB0QgWYYl ODj8a6mvTrXssNLzDUKx emGidDCaJUIsBEK6rF9b iaQwJMxqnjPpldIzeV4y aXRpdmUgIGZvciBjbGVh zbSwJF7EUXGQBFRdPYT8 RVEfDJUcwFKbtL16oh7o eCN6e3OxEV6eW6TaNUAg NVi4z4kmKgObiLVpCIDc rfWAOP6SJBDkF2qpqeBe MjJDMywgRGFrbyBQaGFy yLE0SYMRg92raY4lLCFN q6YogLv0IUTPY38uPCBo T2LBLEfqmCAmyYKwceH9 aGFuIDFccGFyXHBhclxp WDIxZQQub5H4IRctTh7e wWL4lV9hBOQyUCI5FHWw aXMgYXNzYXkgaXMgbWFu jOJsU8R8goQcVYW1EAXb aWxlbnQgRGFrbyBhbmQg tDCwufMyCL1yle3chS3x ILsiKI25aT3FMS4GYUhh J7vubbNaUnCNEs8nJKCa eZOnrELtOv3soCZvSZ3z HEOeyb3fjTkcURJbtXYq IHBhcmFmZmluLWVtYmVk DMNpIHEkp6L6BIO3x0hd VaYijwQXG8abFX28QWJs a77kBIO1q9O6QDorZBEy AC3uIMFhnPnzTVUnHhTr HIAuKPE4SBC4iJ4oMZkw sGgaLGNny4LaD8ikkBVx IZM7BQAbJBYnZU61TbYx hWZhUIDwBAy9XQzdHAIl rNKdbqPyWYEtioA7u1Nk LVNtSCAiq32kWV4oe48n JYnaI97uy4TfDlAnn6Fh w2RoY4rwtKDlrMjytaRd iNEiOI3nRGFvgqKosI8y xLAzo0LddYjgAYKrM33o KmjjKBLpwV9fzYNbakWz z0IsvvRzZZYZIjqvlVEj V0GeP5AvGLRfNTTmcfQ0 bYBinaNrIrLuET6yCLVC EMmsCKL7ENesdG3jPKNc mWpyZFa9iIWxeNWoyS38 BHBidsHkcDQlr2GgL4Jj xANhp4xmr1yjNeVuUW8m ebCke1UcKVE6ZMcabC6w DO3bTIWmaURjwhXygqUn gXz5VVi7zIOep3S7xBGo BABmBUFdQLAuo2DwDCto wkBrkfI5fERrrTJnz5Ew INJxQYNjwF77yU6kTI6i qQXaSP1rmKZem1TcN0m4 x7KrOGSmxESba8KvoM5j ljmgv3CuNJ54LEiqzYNg y9o7kDpuSWm4rNQhHBYz sCJ1yZBhlB24DLrxvqNc JoGwLA6lCXSxUGDcBGXs zfEmr3l1SJX6yZ1cztJx ZWxscywgbXVsdGlwbGll ZCBieSAxMDAuIFRoZSBt BLnqvTUpTLRvv8CvGXsq ASDfGzgmNUFcEPXzN1YL HUWcRQ4thYJyASshJZOm clxwYXJkXHBhcn0= Diagnosis (test code = c3ugeDHkMZJebQDtYUSl 34) ZpymttOcSAHmpRGaU9Ky lzdkYHsrCG2hDI3wgZmu eHKctZLzOYQjZcKfk2xq o791iIHcv3xcJQJMbhnc hDp9mFvoZ74wm5W5Jfnf J0qtDURxOKreODAlBUcd nHYtBBu2SLHqrYSysaSh OsXqLEUjlELikKB3PSJi KF2zadvaJIyhHYojVJOk csC6PTEybJGkN8QiEFUf EU4khjbcCRQ0IKqyHLNc FBH8WyOlNWIjb2Jvdbu1 MjBccGFyZFxwbGFpblxm czIwXGNmMSBPdXRzaWRl HCogUwuIHiQ9DnCiQGen C4FgUEIgArvIW1cBNJKs NNWWYxkuE22trWXdbMUz DG7eDYBoVjE6NuRyXcMu RlllGKVwW4LnKHGwpbly gPpqQWhbnP97RuQxAbTd q1QrZNB8efbkXHDxh5Pp tAnltFOtYZjnTtN4MHbs rF29QvQheNyeEqY9NZPG UITRB3yPXHFVR6ITJlUY PFORJV1OKFLyEFNHPBWH HCZGKc3yHDtSDQYtSQLd D11zuYEiwNitVBGziZAs XGxpMFxmaTBcbGluMCBN RFcvRkxaIFxwYXJ9 Comment (test code = v7aitUZbJEHhuGGbKRYp 9835) QgvegmCcAJZepTItZ0Pp biciLTgfLC1eQB9adKrj xUNmtYDgVUEwQrSea7ov g790gAFms3ecDKECzqdj hGm7fCprZ20ht3U4Ewhj R72zbFGpDRM6QHPoVUMw kWDmUKMeVQS2ISSggKJh W0mdCGSoBC1lmhxqSZxp LBatOBKfzDW2COOsbGNc K1OlMILkQVitJAGmgrk8 UePpBc2ckXHblTleXOar YXJkXHBsYWluXGZzMjAg S7BtgAp2kFWmIVlebNPk h2tbp4QxP8jsoAxlCVcq f1DlbD0tLFWwdvLrtr9z ZCBieSByZWZlcnJpbmcg fY1svWp2sWZco36iq7om rnA6pDT4QSGXJxMfuYpc bGlnaHRzIHRoZSBlcGl0 aGVsaWFsIGNlbGxzLCBh bmQgcDYzIGFuZCBwNDAg zWdweFleZ4q5ykY0mFIa bXlvZXBpdGhlbGlhbCBj MAzeif6iXZOeDVTar9Uw oL9lu1n5FWFuOLSgpE27 fs8yjATaz9F0rRJxxLJa b0ZgeP1lrNw5MXMfHtS2 bYahECZoELDsaLGfP8S0 kT6nNbFgaZJyyC== Biomarker Block(s) (test j4ofxJQxBAVnqGPwRYWb code = 9841) GxvmprNaPLOdpKJyW6Cz lkhsCZykPL6iBX6izJsz iYKfyUBoJDHbMaFug5gf l627pWFjj9ymAAJPqrmm bBw0rRpnY54ad4U7Lpwb W9mqXRRuGLgiUWWuOUjr hLFbFGo0WDIvpFHqsuCc PoUlBNVruHEqzMD6REGz NZ2yzsxaFFliTYaiOEBf plL9RBQfdULiC1MdLHWn QB5utuerAMJ6GRmdIFRo ROQ5YmXvDZAub3Kbeas7 MjBccGFyZFxwbGFpblxm wmHzUWA6xA6pTVQbk3Ly OiAgXGNmMSAyMjpJUzE4 NzBccGFyfQ== Disclaimer (test code = k5ptoCGcKVBwoOTyYnDc 9844) NJBeLGRjt3ztWRJzeNLd ZzEwMzNcZnRuYmpcdWMx AIObJjZbr9uld422uGQa p2owSHZuPyL3eROhRFDd nAMxL402LILzQQlmr5gd a6WhSGKbwIFvf4U6HVOP dnxzwPw8tZbwS41tk9Z3 OprvU7osMIXxEESwJ8Dh PK8vQEWxXca6OTE0LZS2 XJLiURDjP5MfFZ1iUXEt iSPoBCe0v9amxXucZGUn UWW9s2eeYPszjsRdVS2c bg4yoKy0c1lrzcCtTVNp WKCsuTGUTWImF9CnhNgo Pq5lhOo6cEqrAdvcANP3 Arl3WO8xyu85hwb1tXpj SJWnbevaZpY0SRgoKRUn lewcSZj6YWmvWJIowND2 XBZmsQPcB3DnFKBaFZ9a fqm1DCZ7MLomGBRqBiE8 NDBcaGVhZGVyeTcyMFxm i460VUP4AuOdJJ4kQ0Rh x0S0jY2enDMmCNQtwGHe HhVbQHWvzy3suZHtENal i0HqWGZ6tnJ2pKArlAWu NAZgJI24Pglxz3ZzEnlp VOZ0YXSysyGnh2Crb6fw UjBaioFxX6vfW5QzTPGq VJGzKMSaScKrvmMjx9Zx q9HuwLOdzRn2r4fuEIDh QCXfnCevr6xjPCM3ZTHg O1H8jSJav2qrYIrmFDCe iJJ7cqT5TXMthHQiM9Tj uT5jHUUvAK4wnsw6f0ua AQW9UYznRUItFwD6xeA0 NDBcaGVhZGVyeTcyMFxm x737LZB8KiVoHMUxi4Wx H4XhhSvuS27gzFiuN20w RHOrnKnksQ8ynZcrdO8r ZjBcZnMyNFxxbFxwbGFp ppdgIOldjdW3JSgdyili WWMyCPpqL2upLpJeEDTg gXtuJOwku1HjOTXqMJSm SizownB9WLUEv50tXFYk y2TxVLSplT4vpTOqUZyz axUhhSP8OLqwckZoJvUh jsOfDPAlhB2jJEKoTD0q PLDbtxHoex5tvvGhSXKj JDGkH4EotpsvkFhfxxPe UVNxej6zxeWyRON0LTSU KA9INJIuTFZrp93gMXNy qEarxT9ieFWxjiHqRSOj p0NbjW2uxKVQEVLpB9jn XG1wRGngx7DliIQzyOVt uDM2LGPsa6CfWwQyutQq mGSloBQeT4AtaEqsJ2yy UQYdDFXntjKhlHUpw9Wc TMBohFS9mZJvKH3KOgTQ f89uSHViOJQRbtAkZGBs pUawtLV1cjR1eM2iQjPO ZiBhcHBsaWNhYmxlLCBj n229je0kkyV6XQWrTEKa vmwhk1CfUMEwJNUlyT47 CPOwTKAnio3tefftkKGd hbYkL3Caplh5wV1gRXMm YWluXGYxXGZzMjJcbGFu ZzEwMzNcaGljaFxmMVxk ZzCqLYRlEHwvR6esKkRc ZnMyMlxwYXJ9 [facility] MOLECULAR [id number] 16:06:41 Test Item Value Reference Range Interpretation Comments POCT Molecular FluA (test code = Negative Negative 45433-7) POCT Molecular FluB (test code = Negative Negative 31038-9) Lab Interpretation (test code = Normal 51076-8) [facility] MOLECULAR [id number] 16:06:41 Test Item Value Reference Range Interpretation Comments POCT Molecular FluA (test code = Negative Negative 06149-6) POCT Molecular FluB (test code = Negative Negative 52225-7) Lab Interpretation (test code = Normal 97299-5) [facility] [id number] 16:19:00Reason for Exam:->Morbid (severe) obesity due to excess calories [facility] 1965 Sex: FFINAL REPORT [place], UGI, WITH KUB CLINICAL HISTORY: Morbid (severe) obesity due toexcess calories COMPARISON: None. TECHNIQUE: A therapist radiation abdominal radiograph is acquired. The esophagus, stomach, and proximal small bowel are evaluated with single contrast technique after oral ingestionof thick and thin barium using real-time fluoroscopy and acquisition of multiple spot digital radiographs. Patient could not tolerate gas granules, could not perform double contrast technique. Fluoro Time: 1.4 minutesReference air kerma: 125 mGy FINDINGS: Creative/Art Director radiograph findings: Normal bowel gas pattern. Esophageal caliber: Normal with no focal narrowing.Esophageal motility: Normal.Hiatal hernia: None.Gastroesophageal reflux: None observed. Stomach: Diminished luminal size of the stomach, consistent with given history of sleeve gastrectomy, otherwise unremarkable single contrast technique.Duodenal bulb: Unremarkable for single contrast technique.Visualized proximal small bowel: Unremarkable. IMPRESSION: Status post sleeve gastrectomy with otherwise unremarkable single contrast upper GI. Signed: Steve Gavin Verified Date/Time: 07/28/2022 16:19:45 Tissue Exam 2022-01-12 18:24:44 Test Item Value Reference Range Interpretation Comments Case Report (test code Surgical Pathology = 104) Report Case: [id number] Authorizing Provider: Dewayne Wise MD Collected: 01/09/2022 11:31 AM Ordering Location: [facility] Endoscopy Received: 01/09/2022 03:51 PM Services Pathologist: Evelin Wharton MD Specimens: A) - Polyp, Colon - Right/Ascending, ascending colon polyp B) - Polyp, Colon - Sigmoid, sigmoid polyp C) - Biopsy, Gastric, random gastric bx DIAGNOSIS (test code = [id number] 3220) FuZzEwMzNcZnRuYmpcdWMx IHtccnRmMVxlcGljOTYwMV hloxQlWDRxiEZtQ4Frwsir THfyCC8iYC5ppIqynFGbzL ArPOHpZcUjm9rae625pYRe a9zmXAEEocyjcHx0jQsxK3 5ns5P9LvexX69zaCAuMFR7 AKJcOIHdaVFjZNOkOKK2BL VzfTCaG8ygOXCgHJ2ywwxm BSibXNgpCEAlvCT6YRRlpA WzZ0CjNNWmCJlwOQUyujo6 VsBvLa2csSEwgPwlSWjwXQ RdXNPvFOjwPDMkOoSiHX5y C30PY16aQBOND2nOC4BFH4 YAWFoEDvdsQE5ADVWXM7DN VYf3ZKNmzmx2XDDrGTTSZM IIHFPFVTZTDM4LHHTxfHDm BMRbunGCCpPNX0oJPmajA0 aGRS5XSRqxOC4HIAXEO5RZ RNa1JPQsjlj4WIUeCAGVRY DDXYZZEJNVCV7DAUMfRAQo nuavZAJeBo4hQ6QBCPYGKA qsD5nURICGK5ZnS5XIC5nU OTJJVIYHTX7SG0qreDImUP RhYiAtIFJFQUNUSVZFIEdB K4VDH7HIGLuXATHpzow3IG XlNPKHQUgVNWsUKV1CK77T SYJTZSHDGX4AINLSOWpDAJ 9HSUMgQUxURVJBVElPTlxw KTXhcTIaON0bTaJFCUGRPb JcHk7USCrMNEjII2XDX1RV GjCXOVBYZ47GH6DKGCNIDi BUNdDLO7CKFC5WHEZAJJeD M2hzYHP0w5bhaTFfZPManE UxODAwMFxhbnNpXGRlZmxh mpyzPOFpXSA0ebAeFIEaKJ swQIXcGAqgDe7doAMwyPzq MkWqSZPtc9zjidABippivA t2t4hnLCZlEuK8pUCkGFrp K8uybtXrzQHxWFOtSUs8mJ 85ZVQhaZ1bhWGgTVvfrdTv BtL5AWfoSVUkIlM6CRNiwG MlPFXrJ8txOWIzGHjrRGSh XQbmhGBwDNY1oJelt7H8tM VzaGVldHtcZjBcZnMyMiBO k3AvASg9yBtvR0MqLOFiYt S9aYYxJKRzCCdxIAGcGJKb jiC0rU50IRtkflG7fBYjk5 Dms36rs622bO9euPHmAOF8 IFQkOGWgdETtPRPjPBA1NW FdfYHlL1poAUMfPN7wompv FPtcOImeWOZakJK5YWTheO GhF3AvLRZmHKuwWIEcnrf0 UlAqFb9reGCmqAlaSQkmc7 psj1phiTFzMjq5MRHaVkTv KbziELvhl0Txx2uhPAUwap 6xOFW5kOGgwFxcq1X6ePWn MMZisHNmWTRxSF9clVJsOH GjoV4uopzzWFJaWgBpncps KKTgiZtaerXlYv3dmDxlOQ M3YQvhW4grvT4iUqN5ZEyi E2vocF6vEMu9RIfhKKVxjG Q6yiB3VYJdeWDeI2EefJ4w SPArDQ6cfbl0a3krXEA2ND cgVMGgDqL2lqD6KYKimTPh CFKadPqiSIhyg076YDC7Yq QuFLQpp8KmC4PdpCvnU33v mFodY66sIJUliHtthU7luT cczP8xAnMgXvEpYCldzShs RT4xYKUxI2mptZPpXIPcUK EuJ5mhOcJyaZ1waYicCZcg nqVbBMNvNot4USKjrGPxRL XjLvq7AQWuEVNwX75pkfdr KMU0oR5kp6lbs5WiLZcsHY J7LCQgg24lPUvagoX1IYrc Hd67XCskGYD9SLljFLM6sT == CPT Code(s) (test code o6lwePSvZQHzaGI9YfIzWV = 3357) Khs2ukf3QnlGLgcFWlJSkj hDPulrEokn05cSW9uD70OO 7cOXVaFgU7HESrtsG3Jbs6 MJLxHXTjvRJaR616y6xwj4 gawrEgkIU8gRnyEEJjssrv CdS8QBrcEFYbtzitYMf2BT zcAZBbrDC4POTdeRAyD2Al ZBRvKR7vjff9WHV9HDzxZL DqHhW0BUSprYCnIXImsCqo MYqmq902XCS8AyUzXLVeuo YzmAdziC8yWoInHHF3OEVe NVgzXHBhcn0= CLINICAL HISTORY (test k5xqlJMeJRKzpXL5XwPbRR code = 3356) Sfa9tzp0ThaUAoiUHsMWqz eTCmzkXjur25dRY2qN29AT 7bNAXuPzZ5EVRyarH4Bed9 YATdYJDrmEYhZ047u1kdu3 yrypSbkZQ2lFezHZHddnwp BhN1TEmgJONtudgwQUg9SR ahOPDpxQI1VCXipIHhC9Vt DQNdMZ3nlta1EDI9XByjVK LzCfK7WTDbeNNmSLIlmFfb PHfie809EIA7BhBpKDHmxw UnpHzwsM0qKwKhESVJMAX1 te3mu10iiCEyVTBdFUWjSt q5uGVnuEYfXCXpNWSmt4q2 nPXjZqLtv2fomyjhXAV1 SPECIMEN SOURCE (test o1hgmZHaMSKdhCJ1AdMzWN code = 3377) Gmc8yhm2NvrVXasOAeMOyh lBBimdVscc55eAX8mE94JM 0oRMKgGqW5ZWKprjV6Luv8 LCGtMLGpoMEuR686v7cmr2 zkroOygWP4oOayYMYyvbds LcB2CYnbFOEkxuvhPHl3DZ acGHIhlFR4MEOlrDYoO2Lc QQVwYM1gxan8SQE0BOcrOU IxQzR3GIXxzTJhMRYcbUwf TItbp140QGK9OiYmLHKpmq UjwFoxwI6vXcYrAMLXIdHu JG3czSWjWFImbB6eAWBzH2 h6V5WeE2WgJQicR9shhA0q TUIuOKSDs3y7zAhfK57gi0 7qy4oiqT0dJCcmxJ0qLVKd MWUDgG1ju1giSRafb3ZteV MsIHJhbmRvbVxwYXJ9 GROSS DESCRIPTION (test y3zquHOmUIQhpAOqClVsKE code = 3366) KlMWKee9zmTVFttNNkKwNr MzNcZnRuYmpcdWMxXGRlZm Hmm2gzl563eYRge0riFOTM ovbbvKv4g1pvPJXhBpW3oM IqBNriQ0wgmkTxzPLjGDLd MOl6cU07WOVscX3gcTXaNY uzzuLgItM3KMrvTSWfUyB9 DEKspUYtBXQsY4bpOCJsRF loMJHwKUgdqWRiOPL5bFjr u1L9nPHlqKEbxJcwAvCeBg CwXSDGe3PnGLu0uFkeU8Fb KWZcCvM5xGPdZOJvQKkvSK GkPQVnsaA3bJ06FJcamaS3 dBJta2Zao58at440yY0voX QiBXB4NGQsAFQcnZBxFJSp JNO7TKWzsJTxO2i0FwWhtY GrN8W1WdOhpJRyB6T3DjKq jSOjO9J6VqDycUAvUORvgQ ZfBp0bdLJxvSVoxt0eqv34 SJI2z0RjnNjlBFN1HVQ8Ge XeCd8zeCInFZAdJSQmpVXa NOTuXU9zjVEkZCCetA5xrt xjXHBnYnJkcmhlYWRccGdi gmExUs5fwJwnIBL1LQfwC4 cxuB9vIyL9FYszJ5nzwT5z XBv2FAtyoPH1INAjxO4pWS 4bvpnbv0fpFvMxLA7csvpf u5dnMxDnOU2rpby9e1omDv JeOB9iznuik6hiPrPtGFzk USAcxzwfFISxp1DmqyirVP Awj0JhP3PdyEwfL51jvHdd Q37wDBEnkYqlbW3dhMphcA 5cZjBcZnMyNFxwYXJkXHBs YWluXGYxXGZzMjBcbGFuZz EwMzNcaGljaFxmMVxkYmNo QSPsUAfiW7bgNwFdOaAoSK BBLiBSZWNlaXZlZCBpbiBm b9WuQWeklxAgEYDvrXZaQF dpdGggdGhlIHBhdGllbnRc A8P4osXyZK2sSRRuRKMiN4 ZrPSRcB13hRDExzL5qAVOn WF8yKBTti6NprlYmewosS0 0an28baA7txUDzEMQsQWPv l25ylQS7kjSdKsWlCWMlEK CpET8vDTQbmrEkf7T5YLHt h6A8KRIbXMFmpZQwjccxJO 81EWybJU50UHhzCK5gVWEr NzHUsAPyh1IaC3mlZY6vmE Yze4HynWy8oEBdCUplZWRl jT9kdU9nKLLzRPowciMofO luZSBCLiBSZWNlaXZlZCBp tuDvi6WlCCzxmzBzUSZixP VkIHdpdGggdGhlIHBhdGll qqAhH5L8nsPoXB8iNRWeHA KaH1NxEBSsN48aPGIdjJ7h NYIwTD2fARXzrPhtt0cfAL XldW6wYYDczCgyWsSfngEu M02yp1fhjZBaw5JlNwAjcI ZeCZLlc8HndKSeMROlasgq l27omQC8mTKsvDTmuwCrD3 tqTfOojyRojNuaWCDkt39b ZZ35HLgfUO3sNFteQO3uRY HxOVKnXVUuMBN7LMWdFkC9 IDAuMiBjbSBhbmQgbWVhc3 OayX3kMJZjTkD1XQQyGeA5 ESMxWaNlgGIpxeIkD8jzQY gyiVHtXIGlCRKaaXZckH7y ojQzexYfzHJmrHF1IQFkqT 1oqV02seElzgNHBP7unRmi SYrvwU5oUNLdSCOwZ4Tukt XrSQqxWYRmtm2rhUvvLCie LyOpUJHyt5l0qQG5eDIynJ H5nKWssOfvXkZlBH2iaYXa ST7gWGrpAVhnikRfq8KqBO 99jZFtbnNagtNyJpmof8Hw wBGfZeqaKCZjFAIoo43hpB G1abMsDcD9IMNgNKZdvfKz CgY1MY4jyUowugRdp9B6SB Ffz8I4EEDhXW8sfW6hVScz IHNpemUgZnJvbSAwLjMgeC OzBeTfwJByDcOhB39fgN8r OE69WFuqWH4wICipON0fLJ NtIGFuZCBtZWFzdXJpbmcg PO4mTWaoWL44KCrvFC0rFW CjTVclEPAfH2DrE0V2YJ1r VGhlIHNwZWNpbWVuIGlzIH G2Dn0xbAGpLCBploQ7y1Uw FBmdGMOyFkhulO9zLNmvyq PwV4xJKWXpzr1= MICROSCOPIC DESCRIPTION s2dmzOEsJOIlsVH9VjWyPU (test code = 3371) Xen0ttr2NriBVhtMNzYViq qIChvdAuga46jGH6oH09CT 9qMCNmWaA6ITEwjwX7Iwg0 XIIfZDNbnDZdV958n2rxv3 bzozYaiLZ8iDkoXGLausrp KyB3CFnpCAFakovfKRr3RK ekBFCgvKK5ULXcjHCvR2Fs QYPfQL8gofx1POY4UClhSM LpWkP4DZGwnVBxVUSofXws TWeca274SOF3RbEgCZBwmy NcrCunyX7bWtQkKQMETWKl NO2uDJzrY4yeT1UaDQFzOK fipOfhj4wzYA3pOM7idFem myKnE3sssTKcwWQvxtLaPt ltSL2fECLdaakkNAAsSd5g Lz2wr9qpxedupDIryyXruM 1vtMNbdKG9zR7bKMNoarLb t9TyjdLdHE6wcRZkdUIadR PeZSG2t2BpGJPtXHMxrrDe IDkhS98bnlK1BElwWMYvQZ 7yCI0uDYvquWxjj2MnE7Cn pbMzhHTou88xA0HunVMgcg UooeKhw9UphoGbdvCbh0R2 gS2jHND5BZdrif1eIPgdGT J9 [id number] 18:24:44 Test Item Value Reference Range Interpretation Comments Case Report (test code Surgical Pathology = 104) Report Case: [id number] Authorizing Provider: Dewayne Wise MD Collected: 01/09/2022 11:31 AM Ordering Location: [facility] Endoscopy Received: 01/09/2022 03:51 PM Services Pathologist: Evelin Wharton MD Specimens: A) - Polyp, Colon - Right/Ascending, ascending colon polyp B) - Polyp, Colon - Sigmoid, sigmoid polyp C) - Biopsy, Gastric, random gastric bx DIAGNOSIS (test code = x6cehWIpISBaf1xrLACjoQ 3220) FuZzEwMzNcZnRuYmpcdWMx IHtccnRmMVxlcGljOTYwMV msyrPrHIEmoGQwE7Jmjhoo TUpbDM8nFK8pjBorqRUmpN GtBGHiDaYwg0axu710nAKl k1hsKTBUflsgpXj6tFduI9 7ul8E1CeokJ20brZYpNBN3 DVSmBFOjdQKgIRJaKYS4TZ EbzEYxE7udVJHbWB1uupsw CYpgRZjzFFRhjIL1XMGueB SpY4WkHIQeLWreDGViapr7 NjJqYk5ncRUntPerHWmvAE VvTKZmIOluIMFhXvYyVI3y X03QU89vFEDWE1jYG3OJK7 UGPYfHHyswDK9APTRVC9HL YGw5WUJydrb6OUSmVKYWEA YAVOGGYAPFFS4ASBFyrUIq MTZhlnWTCkTJP9uSUnqgR0 hNKG6WDIkmKO5UTYJDL9ZZ RCu5CQMeekx3JRPuESWECR LMVUFEKLWMAN8DMUXeTJOh euemIFQfAd6tR7ALQYFPTC mhW2kBJFTDU3VjM4SJH8dG DYWTLJZBWD9PQ0sdqKUbTA RhYiAtIFJFQUNUSVZFIEdB N1CXV3ZYLGjDKOIrpfo7CA GdFLEATMxIAYdJJW9JT76C LJRTYUVBAL0MXBEYLDbDAE 9HSUMgQUxURVJBVElPTlxw RXXhjWBcET4iZlWYVPZEIv ZeOn0BZTyRQNoNT5BUY2UR VmPBCOVZH21JC7EJXCQXSb EKOpDQC5VNDG1GZUPXPKzV S2jgYNM2q3ezdEBeCYNwkH UxODAwMFxhbnNpXGRlZmxh zdtuQAGlYGK5rdGnVCTnZI fhWPNiPRllOn8xdGUmrWrb VqSkMNDfr2plsdWMnzidvH r2g1ddFOEfNiP5bHMfNUiu Y6molcRmvKIvMKCxOCi9uX 64UKTyhU1gzXVhUPruarNk DrI9OExyIIBiKjZ4JFKkhA XgROSkO7ukGJAbOKauMPLt HBxgzUMnEDA7zElxg4I3lM VzaGVldHtcZjBcZnMyMiBO j2PpTNc5kKrdI5NyCQXyMl T5gRHqNGQiGTepVSMdLVRd nkI6bH17TPtkkeY0mRMjl6 Dhd59mg135eM9vgNFdASD6 LAWkEMHgwVTqDJNcBND0UI MoqZOkX4yqDFUfUR8fusmc UZmvMHwhYIJreCQ1LWLsvS CaM6CgISLrPFbhLNEdiiq7 PaGaIi8wmMGwpIapAXmip1 bem7qrmVFdWnl1GXQcVxTy AozzIVlec5Ixv9bjITMiix 6uHWZ8wVYnkIokv8V1jFIt NFNuxWPsXMApKC7xfFOdXH UspE6kjdcaFNXbOfYlydcd RENckDyofwHxNv5jqFljOH J7PCdpX2ayvQ9eBcO3ASmu P2ybdR5kPQq0LBqoYCEygW E8uwQ2LGJdkRFpV7QgbH1v DOIqJL1heze9n4zgYXN7NL nzSXQeUqM5cqF4VHXhmFFq SHEmgMrlITone117SVQ1Im OcOPWnj8QkL1GjvRvlO63n uMwuL35wMGKcdZljrO9klB afsK8mGqXsXvCqVHbmoRlh DH1jRDAiC3lyfPEwLCTtPN NzN5xuAxOlmW0mkYudANjc xsEnTICwSjr2IVCwpJRvLK GrMxd6RLTrUTMmN35evjeb VGW6bK3jd7zir8JlOGclLN H9KGPqn82zDUwsbjI2CKss Gc94YHbpJRT4VUecMLD0wK == CPT Code(s) (test code o6rbtXUrFDTquVJ1WpFiCR = 3357) Ybh6ooc6YfvTUrzOErNQpl uJTwqeLjkd64vFD1nQ03ME 0dVYYpEtC7SVNsrcV5Cyc3 LQKgFHHeyPJbO213w1ixk8 grhfWroLX3uImfQBBgajpp BcX2WArhLQXtiatmJFg3IM crSUDryJB1XZUlkAZdU2Vk PKBiKY6yobv6XDU3JNdwCG AeAuZ4SATtiZExXKFwpQuq JXqin781LYN3MgUfEECmzv XuoEbqsK1uHgZxHGX2YQPp NVgzXHBhcn0= CLINICAL HISTORY (test j3kvcCNyJMVbgSW3CfIcRD code = 3356) Lax3bzh2DsbETiuOKvTKkt pIUztkNehi13dQA9uZ59LG 2wNPUhJgK4TEXurqK1Kqv5 VKImSMJfaULhY652m5pdk7 aomcNxtEL8lCldTCKkmmwq QgA4EUkcKMJuyneeEIb5VA iwMOAhzHF2PPLabXUzZ0Bs RZJvEB4bwpp1WBL6EQptBJ CePfS6WSOhaLIvUETfdCbu WNncb518JSU0HuEfHRApov EzeCggcH4bFeYmVBBIUET0 ay6vy95hbQCdYRDhSICeWc c4wKSwiORsZGUgKYKfy0u1 fQKoKhKzg7rhauwrGWE3 SPECIMEN SOURCE (test c4vwhEYlYMCssXG3MnUjMC code = 3377) Pfx3rnv1LajHEorBPmTVpr nQSiweLgqk01oLG9eU33KE 6dAJUaTmY4SSYondZ6Msk7 LBDpGDDhiNHxA049u1lhu2 nhapZyaLK5vQpoHPSbislq QdB1CKxjJLYuzgqkUAb1JN phFQKtxJO7GEAcxUXzO8Ag TZUfZY7mvaj2KBY4EEtlWL RoVlB6ULJyoNXzQYQmlKzq FHble605KZS4KaYlNNRimy TrfVqbbJ3pAlCvWTPJQkLp DQ7nlSVvXOXpuG2xGQLfK0 a6K7LgO9UnLGliI5bvxH4b FESdZORRu6p7fVmlA71pu5 6kx6svoO9uEHmutA5pXWCt FZBKlN8nq6efHKigi6EdrN MsIHJhbmRvbVxwYXJ9 GROSS DESCRIPTION (test o4dfpBSeBIJdzEZzLzCzCB code = 3366) StNLXsm3rrFHOygHOjFwKv MzNcZnRuYmpcdWMxXGRlZm Hgw8znd753mSFew9miEBZN muqalXl4r3rrGJEnBxH6bA UzELywE7rljyDxaEIjSYBl XUn9pX18JXQfjK6spJLxJK qnkeAdZsT7EAizQUObPiH9 PNJuyUCbEEQfI4jfRYMiJT mxPIDqRNaddDOrBSU7dZtq j1R7yXTrtOIagSrfNpYdFe VmIZROo7McWJl4rYwzW7Tr MDIlAjE1eRCtXQSoLOynZI YsCDDkasG1oD62SLjuxsZ2 mEOgl1Uzb78vo917mN6zeQ EfZJI1EVFqHFSrsCOgCXIe VTH0TOVajYZsA0r7NqTrdK BlN7G0PuJtsQQlI3R9YgRj gUVcC2R3OhEteLMfCUScuE UtLa6rvXUzsNOmlx4tjb10 CAG8k2NgiThaDJC2WLM4Uo LvEu5aqCJeHYJvAXOmjISd WWMyIK8krAHuGRBeyP0dni xjXHBnYnJkcmhlYWRccGdi umCyFv0lyMxhNSB4MYtbN3 rxhC8gKmR5LQblP1truT3g PHq7XUstkSS3INAfhA7qWP 2fpgmld0hjZbEiNI9hindq a1qmAzGqNR5lddx7x9nhEu MoHC3wadbzu3qpRpQzJMxx IRTawdkzXARih1StxjlpGQ Vmv6UaI9JliExqY90cnEfs O03eZOFlxXwueG5daWknoL 5cZjBcZnMyNFxwYXJkXHBs YWluXGYxXGZzMjBcbGFuZz EwMzNcaGljaFxmMVxkYmNo CDHfOYxqI7uyAfLpMmOeLY BBLiBSZWNlaXZlZCBpbiBm k7BdGTpaohVaBIEfrMFrLZ dpdGggdGhlIHBhdGllbnRc J4A7pmQaKD5lLWCdUACoG3 ElZCLrE56bIAGcsI8kVJRz DR9aCPEfj9PjroTbwwimN7 2og08oeJ6yxUIuZKXjXLBt i84usPT3mhKmImQjIXLfDK UbMF5oNMJrcnYjt7V7SYDr v9R1UHDuUOCgdVCbzxshZD 19VMzdSX73UFqbMM2xRDNy HeIYqHVtw6TrD9xjPF5yiM Oqy1XunQr6nNVyBWidJCUp oO2ceI2lBZFtOYoydbUmqM luZSBCLiBSZWNlaXZlZCBp ocXrh6HkPCpiyxWoLZAssY VkIHdpdGggdGhlIHBhdGll nvLiT3B5bqVfXW6aNXCcWR MjE6TzMPMiW11nXMQtoE6n YPEuKA4sXSWymTife8moAW LntQ4vEDLqvUcvDzCeufDh S26wc5fzdWZoz5QuKfDukM CtATRkb1HraQUnAAUpmjqr y71ltDW1zATozICugeOxN4 ncHkZbosTpaRqyRTJek38w HQ97TWjdMT3dNKoqDG7cQK FaOHFuEINzXSH5KVTcAaU0 IDAuMiBjbSBhbmQgbWVhc3 LmkM6jXJYmTgS0OLHcKhW3 IOOlApPyoRFlazBzW0gsET uzaHJqJXNrTXOmwDHkhA4j kuEomyMrfNVsaIQ6SGFewZ 1geZ70vlPomwQEBZ4ukQnz ALfltJ5mCYXqKLMzC7Yycq AvNAqxXKFrru5miHsfFNjs HjNeGVDho3t5xMC8ySBwsT K2wIBdcWrvSqZcVB0gkVEr PV5rMUmlFIpxpvXzv3SoDD 13kJByrtWucqWyUjdpz9Pk gJLsBwqsBELtQONha67hvB P7raQfIbB8YOEcMAJldoSa HoP8FG8ylMefbnUam1X0KB Ppf4P4FWGkYY9ijO6wCOpq IHNpemUgZnJvbSAwLjMgeC XiWpKnqTGpYtFiG08mgW2o LX98GQeuWA2lDTqxVM6hBF NtIGFuZCBtZWFzdXJpbmcg KN6rPSfgOV03HKnkUV8eTK SiTHbkRKYdK8JmR8R9MU7g VGhlIHNwZWNpbWVuIGlzIH V0Nd8ieOLxNUKmxmN7b7Zq KJqxGYPfFimheI6fTVxwss MbB6tIBLIngk4= MICROSCOPIC DESCRIPTION e6ysvIClEXSneDO9HrMpFE (test code = 3371) Hun6xut1VlmKNlsGVxQHof bLWtxuWxjz27nMU7fJ77AH 8eSUBfWqC3NTHbecL0Uhz6 RVEnNSQvaSUiV347r1aof9 rsgwWfiRJ1oKceWNHuobsj FtV4WEmkATCphuwyAEq5YL gsBVQxqLO9NSXgfQHqR2Pb BZEmWC3osrj5ACD3KFelVJ IpDoT7BVKjlHSjGKWsaUie XNjeh809PTF0JiEhVBUmqg KjcOrfmF2eOyKsHBBQKAMp ON8pVQpzB9ftV0IbPJUvBQ lynIhjx2joTW6uMM6suTap owZuU7oozRKhbWVvlbYtMd weHB2cPZTikrgqQEMuYl2b Gb4wi7zondhgbWOmexGitP 0rmZRvgPM4xA4yHCWkcfXk e3GuwlGgUY5gyDMooKPvuU CnDBK2w4GeYYIuSCQrvqYm CYnuN51obnN7KFdqITKlVB 9zJA0zOEupdMygt9UlK3Ee luEoxAJzn40qZ5DujLZsxv YogxSbx8GgitYphiLng0M3 oU5rXRB4VRnuvz4oXTieSE J9 [id number] 18:24:44 Test Item Value Reference Range Interpretation Comments Case Report (test code Surgical Pathology = 104) Report Case: [id number] Authorizing Provider: Dewayne Wise MD Collected: 01/09/2022 11:31 AM Ordering Location: [facility] Endoscopy Received: 01/09/2022 03:51 PM Services Pathologist: Evelin Wharton MD Specimens: A) - Polyp, Colon - Right/Ascending, ascending colon polyp B) - Polyp, Colon - Sigmoid, sigmoid polyp C) - Biopsy, Gastric, random gastric bx DIAGNOSIS (test code = [id number] 3220) FuZzEwMzNcZnRuYmpcdWMx IHtccnRmMVxlcGljOTYwMV uwzvImSVTcpGSiC8Zyyhab YFmuGP2lXV0ewHwyiWPfzE EcFZVbVoEkg2vty869pTBp r1jsNAGOubgoiXe2aIsjX3 6au4P7FcweM40qtIOeYUB8 OAJyEPAbcFYqQRWrYYI0WU YyqJWlE9zeYDLzHA0tizks TIoyGUnnYFKzrJR3WENceA DbV4CvWFLpJFfwRFDmslu1 KvZgTx6ygZLsbRsqHHufUO XmJPIiIQucOBOqMxLdQA1w F64CY24kAMLTN7nPW5BCA4 PDZBkWHiqwRF0MGEFHC9BD WJa5UQEbbyo3NURcCETALX USAVBHELKNDH7IZJAepXDr XFNjijAREpDHI9sEQztmY5 eTVJ4IIYrePB4XSZPPW3LO UZi0VCJgmhg8EOTvCLEUNV IMEQWLDDFJRX5WOEQgPXIu wrvgLIJdOj3zA7ZHNKPXVS mgG7vHFVZEF0RkD8ELS8pD OSSUFTFRTR8GS3guxOBqIM RhYiAtIFJFQUNUSVZFIEdB N5ASC0RPSMmMSDPjdjc1BC ZaGYGTJTrURQbOIB3FS54S EOSRPBXBOY1UMAAIAXlFWH 9HSUMgQUxURVJBVElPTlxw GXGwzIHvGF6eNcZSXYQIAj VtQr1XIVxOZKiRR9XJB0OU LaFBQBEYO91BY1NEIVWBZt ZCGnUYM2OLAW1VQKFMYEhK B0ajDSK1z7qleWFbYHUyfB UxODAwMFxhbnNpXGRlZmxh xkisPTYjAOL3tvHxOAVlMQ gcMOHcWCrjMa4hnNAylWzf VwMgDRQgz0taalTHrekwkK q4w2noICJmKfA7cAEnEPxu N5pjjsWpfHRgHNHlUZq2kF 23ENHgyO4eiPNxKDtbggWt AcH2KXkaAOVeJbM6MINbgP KhLPLoX4zhKMAoGPedVLUf AAncdMKeAHU9dRwom2Q1yP VzaGVldHtcZjBcZnMyMiBO l9SxVQn6dJxcY1WfJWLmTn D0mNRhPPDtHIhxFZWvFKHr naQ8lC12PGutziB3gMRsm7 Cqh93eb272kA4gdPLtJOO4 MSZuFDEgcXAwLCPyJOC7XX TkpADjV4obYOXtTW1tooxl YQbxXRjcAFVdjRQ9XYRvgY UzN1QuGKErGRocXAQvejj8 GqBuMl9wfEMeiLhwUDblw8 vvs5ubvKRrHgn5ATWdTfVz VxipIZlhd9Aey3icWJKide 5eVRG7sVGydQxrq4S5eSEi MFUtxOIgHTFrNE6caIEzMG HymF5ufhxhRKAdFfCxhekx ZNGwoZrzhcZfEl9tbOpeTI F1IBcjE4iozY5aSwI6FVip F5ugbM9tSNe9TIqeIFQypZ Y2csO0OZChmAOtO0YtlR3z FWDcQS3hgng1m7syEAF6ZA ywDPYnOyF2chT9YQOtrQCc UHXasHadUZgio204SYV2Yt WbVARyr3JdU6GckVryV00r vKhwL13iDLLycDgbwD2pmZ bsfS3jBySpWmRtELpekMab ZW0vKRSmQ4midGLmINGnIN JkC9yxOaPpuC7naJyoVBga jnKfFZBpQyg1NLNmnUBbOD WfAww8JWClJKOjF50grywd SYI5tA7xc8dmd5QtYQzbNJ P7FGDgq87mPGhrvlT7KZbj Xo99CJqdVNY2TSsuQZR3dS == CPT Code(s) (test code c0cgvMBmGDLmcFH2PySnSP = 3357) Xjn5hty8LxkEUbwENnKOif sVRcgzLrbt36gKP8aM40UK 3cRQVmHcF3JLEgyhH2Oky3 UQIfODIhtPZwK614s1gtc2 vehzMplBM1cZbsVQMawgzh AcB8PZfsXSBsmoiqZVr4NN rqXEZcbIO4CONfiAYxE7Wl ZLDzVR5nwow3VMW3NCfuSE AvLbU7AXFudAWmMQBheHrl XLfej720IFM7DuCvFUQjhu KcjLbbzJ6wEuFeTKV1ACRe NVgzXHBhcn0= CLINICAL HISTORY (test b1bimAOoDHGxqVF3QbSuDS code = 3356) Les8seh9IsqZHmmRIdKQwn iILbcdFonx18kLK7gJ94LD 3wHMBcFwV9EAZqudN1Aix4 NNXoDJQkaABnB508u2upj3 pqhtXwcQG2sXhtLWOcwuoe HeQ4SJchTOPboogvXOi8PI nuWNNimFS7FDBglMTwY2Be AEYbJH5vdht3DON8GMruMU EiIiJ2IBDaoBKmWSXvfFnp XVkxz473RMG7UnBkLOIsfo PitNespD1pNwOuUPVPGDE5 bb1st51dgZHqINZbENCgOk y3uNDrqHOfWJQrTWJud4f2 fPOkSpMxk3orxzspVSV7 SPECIMEN SOURCE (test v4idpCVfPOVfkXY9DjGoQY code = 3377) Dyh4bmf0QmuGCqhARhFYuq mPZmcaOemc92lFD0gZ08SF 4rWVSuIhZ9SJGrifF0Wmz1 GLGkTCXqpFMkJ259x4hqx0 hbnsPabUX9wXwyYHWbhiae GoT0RHstMEPtbqbsYSj2DS qdHIVbbIT7KOQxjPDzB3Fc NANdRO6wsic7KBU7NWrrEU VpKmR1OHXzbUTsNEDyiMdc VMzcl989HBC0VhHcSZUrkf PhcMuywB8eGnYcLCIGKcGi YJ6bdHVnTAHczA0eKQCkO6 c2I4DwQ6YpGJjqO2braW2g PSGfTUDKv0e3cOysR10xj2 7yr1qauB7mMOsesD5gAUKk SZBLoQ3ea7ncVOpnm0RsdO MsIHJhbmRvbVxwYXJ9 GROSS DESCRIPTION (test s4yvaCZxSHVekAQfUsNeKD code = 3366) OlENCka3fmYOBliDWmAbPu MzNcZnRuYmpcdWMxXGRlZm Gjf6iis793aUWtj7eaBMNK gstqsZe3i8uuGGLtVsY7dK ItZVklY9gcukXusBZdMDWa JJa8dR27ISXoiE8xiMNdTF ruyvHyWsZ1CQaeTUQsQvH0 HKGnyPZlRHUqZ4izGHXmFF vtAPPkCLbxmTFgPFU7iNsn v0A2hLGshDJrvYpeQhTtLd EiAMDHg5YeQKq2bIudM0Lt UVToOoA5hOWwZVSxTIofBP WtSVYzxxL0tU23LQvifbR2 oXBng1Bxu19pz061lQ7ubL WsDSI4DXOvNWMjvWOuTPJy HXW2AJDmxUNeR2c4PzKueX DoE6C4QmOyoVOxY4W7CrFk xWWbX0U4KyVzxBOlJBKviV XkYl1vkESiqMEzju9epy67 MQF9s4VmbEfyJAK4FCO9Ah BqAf2fcRUsEEWzWWLjaVEp TIQmGX8lgVMmAWGsmY3qty xjXHBnYnJkcmhlYWRccGdi beQvAh9xbPwkFUC8GZhcT9 gbxM0lQzG9LTxcO8qpuS1u EWt0TCmuzTU3TJTkfJ0cBS 0plnnmf8twHwFdIN1luqio k5ulTiFdCR2vqxr5u9xpCr KbJZ5thqomx8bkKdLdELcm BINwnpeoNHTol1CmodllTW Qnm6VtR7RpcSevQ20smHrw Q05rUJDqoQfvrF3dgZjbiT 5cZjBcZnMyNFxwYXJkXHBs YWluXGYxXGZzMjBcbGFuZz EwMzNcaGljaFxmMVxkYmNo RPGeNShgN2ijQnRhAaVdXO BBLiBSZWNlaXZlZCBpbiBm g1VwAHytwiQpDBYkvYYcLT dpdGggdGhlIHBhdGllbnRc G9S2djEpEC8dXVYcPNAvQ6 GyLMPqE72wIJDujQ1lFJKq HB7wNZVgj5RzwkAycbczW5 7hn01zsR8txKWkLUCkWRUh g99ltSO1hxEyLqDkUQBeRL XiJO6eMGFsrjIlt2S2MWBa p8O9UQJiVZFqgIZzezluIR 73AUelFU22IXgqZS1cLEDz NpIOvQDya7SjB3lrSI9trJ Rns1UpbSq1bFYsZIauRGLi qD1goX1sHTZtDJllviUxtQ luZSBCLiBSZWNlaXZlZCBp zhRts6JnCAgjapDfZPPrmU VkIHdpdGggdGhlIHBhdGll stQrB5S8saZlRK4uZNPeUM ToE8QpXVTjT42vEHYkxB1h BCMeIS1jAPFnoSkhr8lqHE PnbC7mRGUigLiaMcOcppNc N57ep9tiiGNtt1DgOtYaaF UaMNHxx8GsaPNqSUMgynlb f80vmZC6cBIyoWJptkGaR0 afVpRjnzNpiZbjICAgz63h UF62QZmdIE2rNKqfSK4sRS LbVKKgDQXhPVG5YXPhSxQ3 IDAuMiBjbSBhbmQgbWVhc3 NhyO5eBONlSgQ7PEXiWfA2 DKBcVhNfiANhonDnH3ioSW baiLOkLXIkANGxoXBicU4u ynKcxzFkpAYkmNK0PIMykR 7ssI02tyEndxZNOY0kuWsc SQoheU8sXOOzOURlX3Kebb FuCPemUXBypu7hwYxeTHxe ItPoNHWrg7v6bLS6mFGuuO O3sPIjbGlgZhAsJK9olQOg DB9nGGhtDQhkueYuo4EyGC 84jEQbetJtwlJeCfnax7As uMMpLwktDGBqVWNkk91yuY M5qxLrAsJ1WDHpALPqpdIj EtR1GG6rlIjbawPks9N2IS Fdf9L7VOIfNX1rkL5lRQfs IHNpemUgZnJvbSAwLjMgeC QhAoJwkTSoHrNoF21nqX9z VC02RIgqCK8qCFkqXA1oUE NtIGFuZCBtZWFzdXJpbmcg GZ5uRMinMZ38NFuxQL5wTL HzHOdjRVNsX2ZtB9Q5LC5c VGhlIHNwZWNpbWVuIGlzIH J1Zx0qyLFxVQKzinQ2b8Fx ZRdhVJOsEjwpfL7zPFywfe AxI7uISXZgbc1= MICROSCOPIC DESCRIPTION e0szrDTdHZTeeLI0LiTlXK (test code = 3371) Wrh3mia1ByfEEkaKIvQVia kIJtlrVtxb83rNY5cP17MA 3eJOVgMjL3ASLbofA4Drz6 KNDuJKEicLGpZ888e0dpx5 hwmpUsnZC3yWxuQOImmmsx GmR3BWkxNYFfgyllZYr7YX nhJTYzmIL3HJAobYFuP7La TMVcHW5nsak8XEM1YPkvEU XyOuA8MJUklGOqHVYcjIzm JKybj670RLN7QcInWXVfaq DifAfapQ8wSaZoESNZLOOy AJ7gNXqhJ4lmJ2ClURXeXX gpsFhro6ocYC5uFU8wbRit pvZnN5pgvVHvyIQirxAdLn xzTR1qGSTxnzjnKVXbWv0q Gl1ef9ibnwadlTSfhpKrbO 2ncCChtFT0dX3sFJBsnpKg v2ZtkbRlOW6lmQXevYPqjZ VyMYD7u5VeFUUkINLdlvOd IPebP65bltG5CVwiSZLbWR 2zGO9qJGeffAunq5NcS6Yf ywSweJCis45yM6FhnPSrci JqqqYoz1KykrFzsmNvb2Q9 yL3gLEE7GEyufb7nTXnmEG [id number] 18:24:44 Test Item Value Reference Range Interpretation Comments Case Report (test code Surgical Pathology = 104) Report Case: [id number] Authorizing Provider: Dewayne Wise MD Collected: 01/09/2022 11:31 AM Ordering Location: [facility] Endoscopy Received: 01/09/2022 03:51 PM Services Pathologist: Evelin Wharton MD Specimens: A) - Polyp, Colon - Right/Ascending, ascending colon polyp B) - Polyp, Colon - Sigmoid, sigmoid polyp C) - Biopsy, Gastric, random gastric bx DIAGNOSIS (test code = [id number] 3220) FuZzEwMzNcZnRuYmpcdWMx IHtccnRmMVxlcGljOTYwMV vinhUtKZNgmOXlI1Ydezun GTerQI2fLG4sqOymjWEocG SuQUReBrWdk5opw460jUVa l2xyQDKYfmiuoSe8cMxrV2 1tt5O4GdywQ19zjVMjABE5 MZSvEWNmcGZrXJWqCIC8DK GgbWZaG0wvNULjHR2akyvd CEjsVJztPYSeeTF1DGPszM HyR2XfUNLpMGxgLPMmeqy8 SlBhLq3xeWPpoXghDBhgOJ HpWDMxRCveDAEmNjXrSE1o Z16IG43bUWAWH1xXX3HQV8 GKSCqWXyexXK8FSMCDZ4VC TSi4RIRblsq6HABqGUQPDS WJXGNVMYPCUX6HTNXdcRMk HKLfedYQRbCSA4wCNbjnE4 yGRQ6SOYgjFG9HTBHTT3CJ VPa7HKWmuiw2XTHySUUFNO CBEWAWRULGRP7HPBEeHLHg hgpuNFEhLg1iK1RKKKTOAH yeF9qJRMSIO1JdV8WRL8nK TZRULHMROA3SV9yvpMHoFK RhYiAtIFJFQUNUSVZFIEdB C4FIW9GDIKyGCJXbauw5XG LyPTSYMDoHMOmUBR3HK62K QIZPNETKKZ6GWTXILZuMEP 9HSUMgQUxURVJBVElPTlxw VJCtzDWpCH4iXgLBFHSUJs HnJc9YEVdCJWzVQ5HCN9WK VaJXYZFIA22WG2LWORNNLg ERHhOEH8MFSI8VVWSTBEeQ L0ueEDM2c5jufXWxXEFdzE UxODAwMFxhbnNpXGRlZmxh tkepRGIfZTU7hoJyNWQgDQ gzPOHpEEzcCs0ylQDdkTmr PcBaWFGbk0trxjUKhflahY f6m0uzGKOvVuF3qEBxVXkz W2eevxWfvBJtKSZoVAk1mE 93FWAqgU7ccSZfJSagnaMs CaK1IDubZMHoApK9CACbgO IzFJAsE4dxLASoEYzeCSXf VJtncMGnDSL4rIcxs1V9eB VzaGVldHtcZjBcZnMyMiBO m3FaSEn4wWptF5EnWWHnGw T1hPRsLFYmFRfaIHFsRPVa qsR3tK26JKpucaN5bVCvr1 Rue34st198tC0cgDCtYPF4 OYElPNBerZYeOGJrTMZ3EQ UtxOKeE7saJJZaBA7eklsa OTtrQHroJVVpjDR1AQBpbJ IrA9FnGEUhBFbaUTViigl6 SqVuQk2mhQEijYgcVZzly5 sam5lldKCbRww1EATrGkPa PsyfXUmvi6Vis2guFVYjgy 7gDRD3oDJlkOqjv2K4uFEy ZNZmiKXhQTApNO6irJFuGT RviD3lymtcZWVfIqNfvger CLVdwTbdadGsRx1xiAbjSK L2AZznT7yonX7fMkU1HCxb K9kijV5oHRn8CSddDYQmoK D2ilE2YDPyyGRpC4AulH6f NMLzUR4qjdr8j2ztQWA0TZ rmBATzOkV8tsJ3KWFhkGHd GCPvsXgpRJerb126OQW7Jf AbSYTvb5TxX1XpfFqnV35r lHsdD33mNYDhlBfgfE5laF vzqP3iZnBjTkBwFUihcWsr QG4dTWCpX2qsxOErRZYuUN GpF1qnHcZbbZ5uwEmtSRkb gbFkALStIhj1JTPuyQJoEK KjXrx1IIJdTZAlI99plbcd RMH5hI0go7ktx8FxHZwcKL S6EXChj72eBOrdlsP4MWla Jj23ECqtSWH1ZXnkPQU7xN == CPT Code(s) (test code n1wpgQGdDNDkzEG0JrPhWW = 3357) Irs4fga6BawEXheHVbXDiv qTXabwOszj08mYO1yQ35TP 3sRSVsKlH9DWXognW9Xcv3 GGIhDZLfrDGvY276c2btf1 abrbGioPS8tFobBOXtvvpy VpI1KSrrYMFnteslTLd3RO dqWMEaxNC7DMJdwPZfB9So TKQoOX0tamq9AXT5SQjzXW PuFhD0AHHdzGFiSHVydTbz DLvra413QEB0FtEaOMBpyk IjmOfxnA1sLzDnZPO9LMYj NVgzXHBhcn0= CLINICAL HISTORY (test a0yfvAFgQWKwvFZ6TvKzAK code = 3356) Bcx6ckj2OlwRFyzYJvYFsm fGApyfWbki08lFX6sA34ZK 2qGFRcBrL3VMPmzkQ8Mjh4 YFPxQLZruAKqS490g8aqx6 myulKxyUB9dQtgUNDpyorl EgF6YBxgJDRebamuSEe2ZY bkGJEekBW1UTTzpKWpF4Pd TSEaEO5yipw3ULW7DRjtYQ DePlA7SVYhrDXiWDFtaExg ITxim890CXW1WiXlXFWgti KbxSulzP8gPeMqQCMXVLH3 cv1bv00arRJmGGSwUIEnRt o8fNOmlONtCFAgDLCsp6t8 nMWjJkLce2oalixbSBS2 SPECIMEN SOURCE (test b1dthOYlIHKloEI5NhNzRG code = 3377) Ihe8phj1YueESdfAMdRLan nCFvksUepr96xSB3zJ69GC 8uIAAsKrD4XYVkyzK5Vgm1 RTCmZRWauQTuF155y9rqs1 alwuYauAJ7xCcjGVOxrviy TaX7JIlnVKDbizzzWTb9BQ rhBSLfyEP7ADDpmTSwH5Jk LUCoWX2mctv7HDT1YHueVH OaZqL5DLWrpOXmLNCktTff VFcsu746IWR3HmQgZKQexo QiwOvqhT3xKlIcHSUHHpLl AY9okNCnLBEfuP3lBRHrG4 g5H9GrC0FxVTxfE4luxY9j QBDxRGCLc5i0hNwfX55ip9 4fs4duhA7fNYnfqW4xTXXl VTFUfN2lu2geCGexl6UruY MsIHJhbmRvbVxwYXJ9 GROSS DESCRIPTION (test s8hogXRvYVTkdPRwDqDuGP code = 3366) ReTYXwq5nzGNIizQVmKiZq MzNcZnRuYmpcdWMxXGRlZm Gwe1vcj542cTJos6zpGYHX rcttmQp6e9pqWLFvCxK8dL VsJSieR3tfrtQnaNZkUXHa BCn2nV11XSAblH8gmUKpNT wiqtCgFfD7NPafMVLwCdT5 NDVndIDtIOHyU9toWYFsBY bsATCrQEyulFJyCRD7mZab c9V5nLYdpDXmgIzsNyWnDp MjJNORh4XnLKf0sKgcV0Ln IZUsQbE7dYTbDNOmBTtuUD OrSAVtxgG7aF28DXpyabL0 cZEdc2Stz78iw957pV2umL BoKIJ4MSTyIBCsaHSsEYSq ONA3MTPguBPdL2d0ReFerB KpA7Y8SmAvrNCbQ0D8LcZp bJArW0C0MeRsoOWoRAQipG QjIx1foTXilQQkgs6ccg57 XNF5t7ShdEknQWP9LFD0Pn RhTq2bkQEzTUIoEEJyhGFk ZESyVX5ouYUeSYKfnG3mrx xjXHBnYnJkcmhlYWRccGdi fmYgRn3kkDqnDZQ6MYbbC9 xwnZ0jEpM6TTkxY5pdkY5g BYa9VXiggFP7YUJtfZ4cUZ 3mpdsor4xeHiPrIH7nfepm h4jhLaGbVQ2zllc7o7zzSt CjAS0nrstdp8nuFcQdKLoh NFBbmfbbKQRbm0CcvpnbKZ Hkk2HbI4PzaIukJ61vsWmu L68ePUXebLvmpA3uxTvqzE 5cZjBcZnMyNFxwYXJkXHBs YWluXGYxXGZzMjBcbGFuZz EwMzNcaGljaFxmMVxkYmNo UBYpJBrbW1moCrQgKtCnFS BBLiBSZWNlaXZlZCBpbiBm c0VoPZeomqMyJIChrNVcQJ dpdGggdGhlIHBhdGllbnRc H7V0ijWhRB6bYNJjJXXeG5 MiWEOfJ51vVCJppT3hKKDz JW0aWALlf6MpygFwjimyA1 5nm24gzY0viYDfLPPgGIHj l62hxXL6yfAsMjLtAWAoTI LjWV7bHTVffnZum0D4DHUg w8R1RTZkFWDiaQJpbiqpOB 84FAyuHV74LEotST0sUVZm QnLYbQGgi5AzO9cxIO2vkN Gjv5JlaNx1nDRhYDuxGSHm qG3bxV8lWTVaQLzgziEfgL luZSBCLiBSZWNlaXZlZCBp hlMnz0CzBHmuazXwBCSyoY VkIHdpdGggdGhlIHBhdGll evNbB3R9ujGwDQ2gOESlVQ NzL2MaAPOtW42bQPDdsM0d BKZjCO6nQVXoyHdot0jiNG ZjiJ2cOBUqaEfpPaLwjbUz I35dn2iuuNHll5XkKgQgiW PzEMYix5KuvGVxTZGdmatg o43axUK6yCVqoDGsmpUcV7 bvRoFopzMdsYvlCNOjy91m XC73PXelQU9dPYcjCL5hJG JjKZQxZZXmGAX8ZHUiReF0 IDAuMiBjbSBhbmQgbWVhc3 CbvI2gFSZhIfC8EQMsDsG9 CELlMmGroRGylgTwZ2xpSJ dxpEYjGNQgUVYmkQQxgW3g jdEzjlGldFMyrZX7QKAhxP 5ltR61xqBrssQKEW9deJmi EUihzT0cBWKeRONyP5Suej HvJGuqJRXxnc0mkQgoDEtg MrHtBPFyl2u6ySR5cUCwtY E1hTUnyUmgQcIeCZ8pqNMh BF4bQJqmHXrpbjPhu7CtCO 97fTSxidTovfKbPbdpt2Oo hLOcUyiuODPoQPNpt47qtA A9viTeHkK2NQQiZQLqvqZj MuL4HL1ikAvzycSpl5R9GN Tnh3P0FRAuVQ6pmG5fZLag IHNpemUgZnJvbSAwLjMgeC ZrVpCuyJMfQtVoV29frA4g TY45ZQpiLB7kZIecEL4hVV NtIGFuZCBtZWFzdXJpbmcg OV9rQTsaHN08GEwbIU4bPJ KfSRmaEOVaU7ViC7T8JB5e VGhlIHNwZWNpbWVuIGlzIH M8Ze6ejBLiOCJlozY5r1Fo FAftDRMxWlplzK5tHDkgws ZcU9hGDICwsf5= MICROSCOPIC DESCRIPTION u3qhhWLzDJIwlKQ3GjEtYE (test code = 3371) Old7ukh1WxcRCxkWCdODyt aUHjouLvlv97yCA1dL89TA 2bTCZnPyD0MOEsdjC5Poo4 TZDvFUCcaDFiB103t0kdd5 klpgYpsFN9bKjgKAFijmxb YsW5JRkiOLFxwmyqVPx5WG vzBLLlfVR5LAXppMViX4Ow SYByAB1msfl7GNK6ZPwxLK ChUwB4ALWoiUUpZRLfkViv DShoo543UUA9OjMzJJVuzf HvbTffaD8rDeCuEQTBGGXo WT2oEYsaB8xmW8YrFQClBN fhiXpfm1sxXO7mXL8feVqn izJaN8wikTPobFTthhKdTl mlHZ1eKCDezyykMLCnNp3a Pb6nm1logckfdYLfjmGrgB 3eqBDzvQS9gQ3hGMDokcUd q7BprwFmYM3xxHAnsZEhoL DfIPD5g1PoTCMrLAKejgWg SLrnQ10iqzK8TTmvMIRzZS 4zKR9gKYpczVicu9RzN8Mg wrGocLPmb71zW9JndGJhsg XsrqEim8RsdxKrjpIym9G0 nX0kBZS5MGanox7tLPcxLK [facility] [id number] 18:24:44 Test Item Value Reference Range Interpretation Comments Case Report (test code Surgical Pathology = 104) Report Case: [id number] Authorizing Provider: Dewayne Wise MD Collected: 01/09/2022 11:31 AM Ordering Location: [facility] Endoscopy Received: 01/09/2022 03:51 PM Services Pathologist: Evelin Wharton MD Specimens: A) - Polyp, Colon - Right/Ascending, ascending colon polyp B) - Polyp, Colon - Sigmoid, sigmoid polyp C) - Biopsy, Gastric, random gastric bx DIAGNOSIS (test code = [id number] 3220) FuZzEwMzNcZnRuYmpcdWMx IHtccnRmMVxlcGljOTYwMV thkrSfOKMmyYJwP0Zdtcal OFazIH7iAH1eoPiplXIqqI SyDSQeRvEbo5wit757tGIe f7bfRLYHllckqFl3wTwcI8 6vv2X9DmyoO63tzENiXRN4 VDRbQXLvzBZnDKAtGJL2JW LolVZvF9ulCLFxBN2dmpvk SHtiBZhaEQVmdPV5WNPymO MzI9LxWKChRFdrNSTlufv7 SdReYh0zdHJovEktTPleKG DoHLGyOOjrPAXoRmMyPP2s F34BW75nLPUVX0vXT4WMJ2 TPFQkZZfvdXM1QOQIJG9SZ EKu5UJHiapk4BNLbQMOEKO RDEOASDWFVWW0VHPHfuGKb XQEgcdAKOkSWB1uHPuisO5 xUAZ8FNXopSJ4FBXSRK0RV BEr6XTJaglc8OUNcHSVHCM UIFBCNBOLIIW9YJXSpYQKk eedpOEJrEx1lH1RVGKIQVC jwB2iOWBGML4UbU6BUT3uR BBSEAQYKIZ4OU8jxxSJfSW RhYiAtIFJFQUNUSVZFIEdB U9PLK1WDVCoGYXDhgbo0QB IlCVQYNDxSUWlIYE8GH47L DLBJIJPPOP5AWGBSOOsGIO 9HSUMgQUxURVJBVElPTlxw BYWivQJzUW9uFrUBMMLYRz TlOp5SPKgARNmQL1QVX5BL SmABSQKOB97VR6CCWFLUJi CBVkWJL9YNCK3GENGSQXvH M9lyJOE1z9gchVHiQZOqmZ UxODAwMFxhbnNpXGRlZmxh ubndOVDdKGS9utXnQQCrUC jnFWNmLTsyGa6alLUcrJgv CqApZRKhm0tkajJFscheqI k5c5kdFDFvEkD4bWZmYMln F9pkrtRovDCgSUMqHEg5rY 75GCEvfG9xlZSkURkxstMc IkC9ZZhdWHKaYoN3SDNjbE HtBUClE4doUAHcHOwyLECq WZnstYCyUVD6kDknr2Y2qZ VzaGVldHtcZjBcZnMyMiBO i0WgMBl6zHkzQ5GmMHXfGw G0fCBbCLKlCUzvYJQdMYCn lrB7uP96IFwfjoE7wDByp5 Ile64rq064dU7cqMIoIYD4 LWKsTHLdaQAlRPQqWTZ2DR BbjAWoP1twPVUyOY7ghkul ZZekGWarSZVapJP8PVCeiS NtL8GhGORsOFxiARHwcuy5 QsIeSk2zmDTxuXlyAZqti7 anq7xhoYUlXgg6VEUyCyMf CdfoKKlot6Opt3kbJMBccg 6zIQM7iJYcbLgpa2M9vALj ARSlkUUuCJItIQ3qqCMhUV AurJ9tidhqCKFbQsFyjqst NMDqcOotiiVfXz7ymGrlBT Z9VZwrT4fnhC1oTeJ0MOfc Q0tdfX6yAFz9CHreXKBxlG M5cwT1XESnlGOhA4GjeO7o YTAqRH0bklb6c0voMQK3ZT woTVLfFvJ5mtF6TUPqoZLj UKGmwFhrZRnnf343HCB5So OyXOTav4UwC3HmtUwnY28k zLdqB10jRSTrlMsjzR4vrN hrsB9nKgTfVuQuEBsfvGbt OI8xIYZfN5hnuTZvJSAiJF KiT3tbSpYowX4hxAwqLEja ekXsNYUiDdg0HVNklSSaZH DiEir8USBwKIMoB84gubzk PJR9mO5jv0xpk6OoJFsgQH M6BZRzo50eSUzornE6QEul Jc31RSprAFY6OFvyJTF0bS == CPT Code(s) (test code z5lymJVyEBXgcHA0EnEnOI = 3357) Hac4djn7RdwADajJExEVyb gGNiyuYtuw72fKV4nS13IQ 3wGGDfPrU9HDJbnfU8Jmc0 BHBbQQMojQHgH961r5bsc4 lghaLeaFD7cJjpVDInkzyu McM1XRkiRKSkyaflJVd0AZ ljKDImnTZ9FGGojMMcM5Ds XQYeCM2jvug2YDM1XMkwNU UhVlR9FZDjeVNdFCPvjZri AWlvl623DNG3UoVpZXEngh JfeVxytA6qVmDwHUS1ZEVg NVgzXHBhcn0= CLINICAL HISTORY (test x1xksKNbTDDxbRW1WfPlRJ code = 8446) Igp5zpk3LypZAynGTdCKov wQWwkoEnnc67lLJ2tU34UO 4tDYHgEyN3XQAadhH0Xtf8 GKSdJUZykGAlB725a1neu4 nvfeMpnXY4kHgnWYIvyjtl OfJ6ULmcNQAfjmpdTKo0PJ aqSRZohVP6WVLpvKNaN4Ug JHLdWQ7irpz8CDU7MOawEJ JuWzQ4TKVpgVCbKECzbWvs KQhab952ZQR5EyIsIIPckx SnlLrwaT4zAuPfVFKQJEN5 uh2je68jtKZsQYGnVYUwVd n5dPMphXZsXMEaYPRnn8g6 wRTjXxYlx9fqmhpmMWN1 SPECIMEN SOURCE (test e7cfxAVcFXLveJX0LtPaKV code = 3377) Epf2woj7CnjOUqgAXlACbs qXEvehGmmz88cLK0jY09PL 7wHQDzMvG4IPIsyyR0Qdi0 IXNbXLNdaMXtS534v7oto7 mqkpDffOU3sRsaPUEclcil WbT6WFweTAFvjinvJOk1ET kuJFXklYN2INAtmPPeR8Nm CLWjWS7fufp8SVK5WHgyTX DwKeZ9WPXzcCMjDLEowFns CCgpk052ZHW9IlAcHYXhpb WnfPyodA1cZxNvVOFPKmLn KR8ewDCvUYBxnU1mOHUaA4 u2G8LhG3LwUYgdP7vguF1i RFWcTQQZq5h6lZbrX90zm5 2yc9lszR3kCRhpzE6lUQOd ODEUhP1su6ogOAwup4FogQ MsIHJhbmRvbVxwYXJ9 GROSS DESCRIPTION (test q5qzyKOxQTCaiUKwOoFcQW code = 3366) TrPAIjm3kxTSNfmOMcDpUh MzNcZnRuYmpcdWMxXGRlZm Wpx8fmw536cSLop3ysFQMT cepziKq7o7pzKAGzLzW7gA CkXUvmL7phfpWesGInCWBi KTa3oZ14TTZfyX5bwDUeUG lzqlVdHjS4IGvrTEBkTgC7 WVNqlPSmTLWlE6keFEKvVI vwJDLxMXzcbHGiJNP9vSaj n9E5dCQogCOwhZawRyXbUw CfWLVIc5HvKLe5cAdaD7Sj KLLfChK6yMHuEGTjZEdpPC TwRENotpG9oU99BXtygvH3 hVOju6Zsq26rs474eB1diX BfQLC9OWFeHXMmcPMtCLOp JLJ8VBTdpDCmE3e2LuJszM EeV4P0EgLalGOcH5V2NbJy sIYkZ8U5JvArsAHwIPEoyG AdIv2dcROuaIMrkw4pcu78 ODY7s7LnqKmwRMG3XAL2Ip NbVm5rmEQlWBDlSMXcqUVe RLAyRG0yaZKhIWGkoN9whn xjXHBnYnJkcmhlYWRccGdi axOeLl1mhIlvOCB0EKsqA3 iapI6mYjD6OGcqX0symM1l KBy7QGmzvZR8RFRwoC2xFH 6lzgank6qzGsJtXA2lyivm f3pgTzWqKN6uwqk3o4enGg MsRQ1gweago1ecNrAlSNxq WNHixpujEZVge7WhickiNE Wkr2EbX5UpkOtoW23pdBnh D63hKGHxnHepqB6oqTnmeA 5cZjBcZnMyNFxwYXJkXHBs YWluXGYxXGZzMjBcbGFuZz EwMzNcaGljaFxmMVxkYmNo OTFeMHtqH5inXxBkWaQzRZ BBLiBSZWNlaXZlZCBpbiBm o7GzMVtsctXlUZBagCFzPZ dpdGggdGhlIHBhdGllbnRc L1V3gxBqCV8rTGDdHNVzM9 BmTQLaK92eGVEvpC9iTUIu PO6dQBFzp1BrymAcouseM6 3mc87scE0nyGEgLXZoCIYi t76rvOW1lhKlBpTlSYOnMZ SzMN1uGBTumfEqr8M1FGOd x8C0EKPeBNSylZWnrevmAH 51GKrzCR96MBxzMZ9eZYPj FrBNoVQxx7ZyE0bdMO2opY Arg3UyhYv8mBQbDCnqQVSl pH4kcT6eNOKuJFdvnnPxsN luZSBCLiBSZWNlaXZlZCBp asPbv8MuSOofhuXvKNRleE VkIHdpdGggdGhlIHBhdGll jnPoS4E5ooRuRF0bLCEnBZ ToY4UqEHVxK01vRZNtxI2n BUMvAZ1hMAIqnIoue5laTR YjgI5yIJAqfOfkIwYoxeXp H57by7qxbOIck9DtIzZguF UaQQHua0TsoYJhUSZpxerk f58mtIL9gJRvhIGovkByH5 nkUeJyrbGjoEnyOLPka71f EI16MDehUQ1nVKdtNF6iGD KgIRNbLPKcJLH6VQSvWuO1 IDAuMiBjbSBhbmQgbWVhc3 BlsI9dLDAeUyQ9DXYkEpO8 XOOlXeXxlRJtwuRvQ0gtAC vslIRmNUEcEHJcfUNqgA4f auXdaoCclADrkXV4BVTjlF 5mqZ48siJqpqUUEH3vnAns YImodJ3eBCNnBSBoL6Vvyw LkJBheRPJewt1pmRzeQAnz FkHwZIYcy2m2nDM0oCPzzD A4oLSwqDgpMgYyHS0gtFCx JJ4oQMfvQZaybkKxg3CtMV 26fBEhcmFfskPgCtcaq4Is aCHgGbhlTDGhNVPgy72sxO J9mrNyIrT9WCMnFCUatkGy IeS7MZ3saWhmqiYpe2C4AR Huq8S1BGKrFX4voQ8hUNxq IHNpemUgZnJvbSAwLjMgeC SgRvTyoAUxBmTqD83myL6d WN45YQtsNG5wACpcTM4wUS NtIGFuZCBtZWFzdXJpbmcg HI8aKJfqOP93WNhaGU9sRX VaADclQGHbW6QhL6X9OU3c VGhlIHNwZWNpbWVuIGlzIH N0Hi5seSYoGIBjesS1l9Rp UVweZVOyVhyxxF8vSLbxlb ZrY8bYLLHxvo6= MICROSCOPIC DESCRIPTION z7ysmENxXIJvqTV6OePcKJ (test code = 3371) Wwi0qon5LniLOmoLMuVEbt vSWkbzQxzj40rOE4hN15BL 3jDOKmOxF7MRNyklL8Vmg1 NGFhORWdrOQgZ559w1pxd6 xaijLytDE5zQliDUUzsniu OhH3HVvgCZTpfhzuSGp2FZ haFPKleCN1JOEkyPKzO2Uc YCWoHX4srzx0FTS3MGzaCM WvHzR9LEIbgETtGDPadTty KNzau468HIM7SvQuQOLkng FhzTjrjI1jJgPmGRMSEUHd UL1xCKhtW4ugU6NnGZZfUT nnzUnae7zpIT8aRA0vdKoe mlHoE7emvRAeaZOhobZaHn hxWR7qDQOhjfziQPQuOt0y Ok2ec8knjqptdZTvhkZpiW 2ybVQbwFL4zF5dLJJsvqRm c7UcrfKvCH5lfYYgaDPchX VqHQU5v0XkRRViLEWwiiNz ZVdqK50kpdF5ZKhlCLIfRR 6rND2eOJuyfOhvm3SeL7Hb riYhwDFds94hE6AldNWlat NxzjXnq0YstyEiliYvl7B5 xM1bQZP8TFumua0gXSlzTQ J9 [id number] 18:24:44 Test Item Value Reference Range Interpretation Comments Case Report (test code Surgical Pathology = 104) Report Case: [id number] Authorizing Provider: eDwayne Wise MD Collected: 01/09/2022 11:31 AM Ordering Location: [facility] Endoscopy Received: 01/09/2022 03:51 PM Services Pathologist: Evelin Wharton MD Specimens: A) - Polyp, Colon - Right/Ascending, ascending colon polyp B) - Polyp, Colon - Sigmoid, sigmoid polyp C) - Biopsy, Gastric, random gastric bx DIAGNOSIS (test code = [id number] 3220) FuZzEwMzNcZnRuYmpcdWMx IHtccnRmMVxlcGljOTYwMV jtreObFGLepDDoW0Xbwpxu LZfbSR5xYT3mkOnriBSrzJ UtZVThVxQfn6xlb815eFSp w6reAZFNclcztYd7oCqwN3 2ur2B7MngfJ20czFQwCJE5 HRIyKLEtuUCjMMDyINE7NL GysQNwG2ijPPTnMW3ijuhd HMsgFCmzCUQfkRE4XHQkpU AzW0TjRJKeLBlbKYVxquh2 EbUdTm9dhGKiuUgjMVneQS QiDKSwPBdiMRRyMmYnLH3d A55JP27mFUUTY2qJJ5TCN0 BEYYzQOdeyEX6RCYCCR5MF EOd8BJGijdx2KFBgGJVOZQ NRZTHXBJTDPW7DUWXstDLd WPKtndXPSrYAL1hEKubxS2 fBZS4BMNteSL1HQXXAZ1VH SNw3PWOiyoi8NVLiEZVSVW PRTZGXAYWUAX8ITWXyFKEv jgodSOXdYe1iN1QQLOHFTP ulL0fBHRLST1WgC2QFR6tA XEJQXATSNP9TV5wtiRLwRW RhYiAtIFJFQUNUSVZFIEdB Z5FKY4ODNUrHONCuvnt4LQ YqAVHXLLpQVFtBZT3LG47C LNLYNHKTPO9KKMEHZVnDXJ 9HSUMgQUxURVJBVElPTlxw DRUkdOEuVV6bGkUFBDBZAo BiXl7HZJhPMHkHX3SMD2GG YcHSOCMAJ04SH3FYRKFFDv ZLDiRPX0BKCY4IHPOJNItE P9gtGLI3s5vmoMKvBQXnoB UxODAwMFxhbnNpXGRlZmxh ylejSWKvKVY6hyUiLNAkOT dhEREnVVdvOv5rbTYuaBpq FqRoTKSsn4lclsLIylrqeY d0l8vdVAAjHbA7lNZyZHsy G4sfgdNfgGYoARMbNDq0qJ 03TAGfkU9jsMTkNGpjxgTw FcG2LVqjHFAjKrU3MSWjoG TsOTWaO9tzIHRfAZuzQIDr YVpbfKSjHBF4mImea4Y6bR VzaGVldHtcZjBcZnMyMiBO a9UkVGh4bXxeT5UvTCAiJt R6kGEkQQKeFIziSDSsNHJe tiR6zF44DIkahvJ3sFOda3 Aik10zy368wY3usUZdAII2 QQIzCHZglLMkBGGaXMC9CX DhhEVuP5qrJVKsSZ1xqjtf PHuyHElePRYfsOE2JQVpgJ KoM2VhFDBpITgmLTPeryx6 JmHaFz3lyJSusJdyYMjqq6 zso3xsyOOmJsq1BZFhPyBj HobnJWmua3Ojw2ttGOKkln 9yTNT9hHUdwJrlq0I8xLYk FBXcgTMaXSOeTG8ylYSpCY BktL6kpqbhVVFtEwIbmwvg AEBibGedrxKiUi2dkZbmDU P0CGgoM6xjiC2dSuO1ZYmm A3xpsY9eVMh2NMkdTVPuaA G4vbT8BPQjfUZjV5YovP0g NJGxKH8mcxn1g0phHZT8ST msAISjVcG8fnV5KHCafIHj SMLxkBjnUQyny287IIE6Rx PlYCXrn1VrZ7MpnOewT00v vGxjY85iWYTusOuyvP1tiO fxnI6xBvLfMfGaCAyepOtj XP7zCZLdR3cdbRWpOPSwEJ XqN2jjWjWklC5maAovDHwg htVdNNKnHow8OQBayYZyWA IcMdv4KBTnGAGhU42tvahc SDV7aG3jg4meq4JeWCncGQ R7EGXhf20eOKzxpbQ1FCek Yz61YLufVQY8CYcbXUK5cM == CPT Code(s) (test code x7jeqGWiMAZqeCO0MiVfUU = 3357) Lzw0zzb7ZosVSqrMTaTGmx bOJumjWcuu73tPX3tP92BO 9dGTVyGmK8PWMxefZ4Gxm3 VUXcUVHsiKMjA520k5wuh9 ldjcYznAD0pXkgIHXdqlwk WpO0KXusRZWoyameQSv4BT etGKVmbIV8BMLuuCHpU6Ha EXAvTA5xybd7SIB1KNbwLX PqDnX6ERAwqPWsGNKlmWya BYfwc076WWY1UcEbCIYbbv BezDlrbP5zMfLhXHK2HBQn NVgzXHBhcn0= CLINICAL HISTORY (test i7hzoSByZKRabKJ3AbYnWO code = 3356) Ept9boc8DguWFnnYGqBRwh oCLzmjHdgg35tJA4wX80CV 6tZULoHqA2XYNgwcB6Awe3 VSQdLUQjcNUjU861u1tsr5 fibdAjbUP7uFtmINCoaffr JpO9NXoqBMHmdijvIQz8ES gpGIQzcTZ5KQObzCLgA0Dd EFTnAL4wxyr0FEA0THhhDO GhUbI5FJOdxSKbPSFlbWkw XNias350ECP6TqRpGGUxit SdeKskvR1rGuKfDUJDZYX4 yn9ai33sxOGfSGUqZEDbLp u3oMHkyLFwZMTrRTTgj7c6 jHViBpUfk8xlqwemUDI1 SPECIMEN SOURCE (test o0jkjJViHDAuoGS2LqWmRM code = 3377) Enk5qki2DaqXOfgIXxMBdq pRSamyUqaj43kXT5rJ30OP 9mODNrLvQ2JIMnpyH0Tov6 IKIyNADypEOdO477l3xkb2 mokuIppVI8bVhrTLSdobha JcF1SRmaIZElmqbtXLb3NA pjNSXbmBB3SJPjbFHdA7Oz HWZbJX5yqnz1NCK1XBtaWW TtNbC5AHLuzVBrTIOtkHce IWsvf504GSP3CoQnMPZhbu JfvPlkeY2yFjXnYGTZKaIt JB1rlBUeRBEawZ1eSZMmZ3 v9D3FkB6AyAVirN1zjtG7a AQHuJDCDu5e9dJvhZ22ug7 8lp5ztiT9tXBqnuX9lDZKb MBJIoY7jy3aoSSuem0KlhZ MsIHJhbmRvbVxwYXJ9 GROSS DESCRIPTION (test h2lddDYsXTItlCWlShTtEY code = 3366) FuLCFny2clHQRusSHuXgTw MzNcZnRuYmpcdWMxXGRlZm Ilp6xfi973nZSqb9saRMEE zdzeuFx7e6eiEBXqVwU0kL HrHOmeA1jkodJtaXCvVXUt PSn3pO71PTZmxC7ntLStJZ taglOtEjS2ZNwqEMYiDeV2 BINzvCFpEXRrM6yyFIDnYQ snBLCcMCidmCMoZZZ6bFjo f8I5uXDomOXfrYzsVsXuOh TqWMCMl2RxTJa6pRdzC4Qt MTFqFpX3vCZmJRDwMGraGR YkCDWthxX4oM45AOtkltF7 nPKkr0Fsr40rf875xU4aeB ZmDZR6BHQmSCIcvDIfPZWh BXN6CSTloUOaZ2c4NiMupD MsV8H0CzFuvKPkC0W6XfDz xRFrG2N1NbUfvJSjOTXdcB QyZs9lbVBfjGDuco0npp28 KHK5x4IceUubRBE4MSC0We HjHo3puSCtYIQnNVEmhOXp DMGrRT1yaLElYWXccJ6kyi xjXHBnYnJkcmhlYWRccGdi bnBgMg5uwOubVWJ6IFmzU2 jmeL8iPmD5PApwR9ierY3x VKs9DMdooBQ9GHOemW0eDH 8ufqiok9iuGvBjQT5cnkjj d0izYtJuRB4reqm4d6xjFy OeWT3dtugqv5kmHvZaADqq XVEkhcdaQYQeg0IvvnviID Wjp4VbH9JzeEgkK58llMqa U25iDMEyxOjgbA6hxXkgfN 5cZjBcZnMyNFxwYXJkXHBs YWluXGYxXGZzMjBcbGFuZz EwMzNcaGljaFxmMVxkYmNo LJOlKJznJ0ssZfJuQdJrLT BBLiBSZWNlaXZlZCBpbiBm u3RvVRnswkBtJNLuiYHoFR dpdGggdGhlIHBhdGllbnRc J1Y2cmHcVA0fIITyKDIzF2 XdJKMrY56kKXUpgW9yBPJp PJ3xDNMok3KaplDmuaebD2 1ea31ofW2xbOQhSHErMUWn m69bbHH7rmDbKfRqYZSyHJ FsNF8gDGBgsqEkv3R8RMHj f6S2ZYYiVMKnwJNiqepgBX 20DDqeFV29FUqjCQ3jRRFy ItMNqMTui8CaO0pbQK7axX Uev3JslJg7tIFeFMhoAUAf zI4ohH7bWLMyUAxkpwXvnX luZSBCLiBSZWNlaXZlZCBp szNaf0VcHPyhauXnHUUovR VkIHdpdGggdGhlIHBhdGll fiIdG2B2ilWfPO0nUKOyCR NiH4UkCBSiZ81hEIPfwF3t BHLrRI8xGSPiqWayo1jxFG DqrM1dKEJmuItgGyUpyuMo L15so4lddASfz5KuFeWvgZ XbRVWge1McnNZaWJDxrjez t44kzDH9tWWavCAejhTlF4 bhArZisfWriJmnSHOru86o FP48LGtcZH9lMFybNO8iRX TtLXUlDDNbUBN6AINlBbP1 IDAuMiBjbSBhbmQgbWVhc3 HxbP7eYSGoStE7DLZhTyG4 JZXoUcVvhCByqeAwO6ywVR axhZQaLZKcWTXqoKVcgK8d xmBryvZcpWMhvDW9WPBvvD 9hkV16meDuafBLNO1suFdt KJuopM3eXRAmBEDfO8Cokk PqZRqxEODoce1ygJocZTsn FiIaSUPhv1e3gIC8uDZosJ H3eAHunDrqMvKeZA7mwQKy GJ7kQNykEPycsdIlo4ZzMN 45nUEmpwUkxcJbBvqll7Oq xDZgSqbvUFVhCGAyq79zjI A5kkDgOsG0YUPsEBYxhvDb QnX7VW2omUfbbyFmi2G7VD Dda4M0TUBtPM8snI6dDIof IHNpemUgZnJvbSAwLjMgeC GzLzTfuQIxLvGzR26rrG4d EP75XLlvEK1fZNvaCB8cTL NtIGFuZCBtZWFzdXJpbmcg TQ7qVLkaHR93HGjdWB6hON ZzCFcsLCMpH3IfB6K2VP6g VGhlIHNwZWNpbWVuIGlzIH F2Zo7obFRrMWRzisS0d7Cp HLszNIXzJurflX1mAVlzpt XxD6rQUYYfey9= MICROSCOPIC DESCRIPTION v5nryOLdJBPjbNN7YxPwBN (test code = 3371) Nyg0byg8XrxQJarTQlCBcl bXOujxMbch33eVB7oQ13EV 2aVIAlSpC0EIMbdzV5Ezy2 MGIcBZRblVGvX293p5usf9 moldUrcVG6lQnpWVVxszlq MhV7JCetVJMtkbdoOEr0WB ioDDSiiOF1SMOcaJKqU2Mt XMBnBL6hlib3NIM7NGztAK BuZnN7JYLcnVKpSOPvdQgh LVwnl525SOX5AwKtQHHogb XdtXloeX6iKcJdKCQCXVZe HX1sXPoeS6ukN6FlPHPdFV lvvTmmw4tuAW7sTM8odWbx ynMjU6qdkCZygGXvuyHmJt ggFD7gPQFwixoeQLMeQg9v Rj2el0zwpdiweKPgydNlzT 3faNEdgIA4qG5ySNYjmeOf a7HmkcTlTO1mtNAblOGcyA DzPLE2y6XvMQSqXXYchzBc LSxwG04jgrA6ADvaBZOiSI 3pMQ8gYSemnHunt1MbD9Vj joPwrYVyu19cC9UqjPKbwc AqqiMja4YazbJdjxYky8A4 eD2sGVG8BPmxio8zBNqqNF [facility]9 [id number] 18:24:44 Test Item Value Reference Range Interpretation Comments Case Report (test code Surgical Pathology = 104) Report Case: [id number] Authorizing Provider: Dewayne Wise MD Collected: 01/09/2022 11:31 AM Ordering Location: [facility] Endoscopy Received: 01/09/2022 03:51 PM Services Pathologist: Evelin Wharton MD Specimens: A) - Polyp, Colon - Right/Ascending, ascending colon polyp B) - Polyp, Colon - Sigmoid, sigmoid polyp C) - Biopsy, Gastric, random gastric bx DIAGNOSIS (test code = [id number] 3220) FuZzEwMzNcZnRuYmpcdWMx IHtccnRmMVxlcGljOTYwMV addjWtHRFntSIeR4Izifbt DBqaFA8dPA1utNhxxVVasI TcUEBzEeHwo2any445zYEo k3oqMDHFiierbLb1cUouZ0 1sn3P1NmurY94fjGXsDPV5 XETtJIFfjHHaOAZnOLS5IT LdaQPsV8peYTTiKE0yjefx UBfqYNltNQMfjCT8DLChzP MeK9MbUDRmLDhlSWRerom7 BtZnLj4ttFOuwUmsZKpoJN RaWTYvJOnlEFHmKuGqAG4w R37ON16kMDNHM4kOL6ZRH0 BUEFhLGsfpES3AUNADQ9TI XHe6UXGvhzn9BOBfWIZJSK DZMTMJKZSMXU9IFDAcaQCh VHKerhKHZvHKX7fSQrvrH8 nQAM1DAPwoGC4GSMCGY3BK KFh3FIFbjos3HXJpSYJUXG WQIUAXTXLIHN3VHLAoLOEh auykOJUoWa4dS6PUSMBBPW szJ6tRWMVYO3QwG3DDE0zM HFGOVARWOQ7YQ8bkdJHxTE RhYiAtIFJFQUNUSVZFIEdB L1ALH1TMZNfMDHPefus3WF QiSCZAKBgZGIcODW9QP01K YVMDUJWMEW4AEIXBQExOUP 9HSUMgQUxURVJBVElPTlxw IVWhhULrAJ3xOaZDLDJCIa ApLb7NZBoOUToEH3OEB5UU FvVDYYWHK05YI8FQHTYQUj NJCvHES8KZWC8QECRESExT B0hbEYY2y4uxsMKpTPRfmB UxODAwMFxhbnNpXGRlZmxh fwruCGLnOBJ8ckOkIXLpHB anFXJxJPpoJi8tcOCpmTst LsAwDVZxy2ihimBRkwcxtS j3k9yxCIPlOoQ8wBImSNog J1gobhVdwZPtMAUbNTz9oW 58EPDdkK0kpJWgYCejfuIx FfH7RPstRGYwMdA8XHUteL LnYUHfA5dmNDUeEFjmQISq YFkxoTEpHMY0jUaeg5I9cH VzaGVldHtcZjBcZnMyMiBO d6NfTEz6jZxcW0NxANTtVj Z6qALqFYCzWKrdEUYkCWOh ylE8xN64GLmzdtA2rEHwu3 Uzg70hz733dS0koGBlTTJ0 GEVuNLSvzPAeVBPsYDV4OS GupONdV3fhONRaGU6cmztr VJptAEooJMYurLY0DKFmwE MqL1KbTKGgKTpwSHAdqwy9 SyRuVj7xzFXwnXjxTKwya1 whg9tucKTuAcg9QNCuTcTt RyctALppf6Jqw3xiYGIxmo 6dOKM4mDLvaXsob3J9dDVa DVBxdAXsZAZgPS3rdHIhQC LqmW5qcannLVYmXsCxeyfb RWLugLlpkePmEd3uhHmrLX A9KAasZ6xqiD7tFnX9BWjd T7zsyZ9yBQl4JRkwRUXobL M7wqT6QQSlsAVsY2OsuZ8v YJScYB1dsax4m6hpLCT0CZ trOIOlPlH8cbZ6HUTriQZt MNSkePliIEile641GPI9Wo JpVQSlr2XfU2ObgRpwO20f yNqgB23aMWQiuWumcK3hiH qfoI9mDoAxMxCfERibtIhw ZR3vUSXiG8xycLKfCHXgVK QcW4coTsKiiS6giIcdATql jvOcRENePmn3WENbzDIoWI QtGdf1ANGnDAQbY13zbvll KJJ6eH8dx5iao3WwUXzrFG Y1CINgp97aDLqjimO1TKbt Az25ZTyzLGK0SLycMQH6iL == CPT Code(s) (test code a2topEDtPRTrtGV1DgTvXZ = 3357) Key0pqg9NhlPFcfSAbOHfb zDSjlyIcnu16fVF2cP05QL 8nEJYuJnH7OMTnouX1Xat5 KABxZUAnwJRxC227f5xxy5 bgefPenVD3wYybNGBtqaob LiD8SFmqBGHxrdfbWPo6NO ksKVYzuXN7GYFigMHgH7Xg BCUaWX0ejxh7CBC3UFnrXH OyHkV6ECDwmVPnQOAlmTqw ROhbe963BQE0KdRnQDXwfj CnwAigjU5eCuPsHWT8XEZe NVgzXHBhcn0= CLINICAL HISTORY (test l1xhvXNwDMViqNY5VvHgVF code = 3356) Gva0nct8OgcUJpmSSvKVrg lCLwhvGfyf62jBX2hG37LX 8iWFZiWlB0TFJxfjC7Fik5 BCDcVMXrpXGhJ733q8pth5 lueeKsmPI0gFpkOPLkuiez AiB1VOzgBVZhsnjoZXt8GY xbCRNkeIM1KSUmwYIaA8Gq PQOdJG7dmoy7VHX4IKcfDG QeNjV2DBYqfRDkMHMrvRvr MSloo561YGC1ClVtLMUxpe QvkHjtbV0xMjHfNBWELWO9 yp5yb60fsHAgSEJtHYGaCc b9gVKrzXMmFRNaXRLpl7l1 kMYaCdTxr5ewmjfdBQI9 SPECIMEN SOURCE (test w0ztcTCrHBHniRA7DuDbIZ code = 3377) Guw6lck4XfgBDhlDFdTGgz sBKcogZtol07rIE4tS70TB 1gNTIxAmG8ZKEwjaH8Tay9 AUGkZVXqeXMyM667l2aae3 cthiScoVI6bDxvNFZvyyep ApX6KAfbGJGrmznvWKk2MU gwYYZriNY3FPEezTZhO7Gg RDLfYF2gpfv2LER7UOyeEY CtUmJ5DEZrrYLsTUQmkOzl TAzva396ZDL4KcLqTBZqms BcqOmybW0mCpLnNQOTQsSt MF4otDFxTEQapW3tUWQbJ4 i2H2QoZ7NpPBtzA4llwV4c GOHxRCJWw3a9mQtzF34sj2 9en7dqzQ4dVMqswX4zKBGb ZZFYyL4ko6ahQIsgu1CofN MsIHJhbmRvbVxwYXJ9 GROSS DESCRIPTION (test b2asoIWkIQIxgTBdMuQkAJ code = 3366) TbYVUcz0nqEZBitLGrNvUq MzNcZnRuYmpcdWMxXGRlZm Ksy3bdo474oWCml2plDOEE xttheUr7v0jwOHTrQiM3qZ CpNXbyN3rltrYwaOYwUOFq GHw7aN72KOHcyV7jwHFlQJ wvgaVsFiT8YRhsOLKtVyY6 CTEgvEJdPRFaB4jpXTWgRO cuXBVfAOnnuMIfJOB2uLfw l2B9gQReoWIkbBylMhAbSy QjZDQMb5NsODq2rEprW1Av FFUwEiG1jCSrNIQlOIesHD MeRQJhnwS5yZ99QIdbkuF6 fOMhw1Esu77dd136wG4bcL CrRWP0HQTzZDVdlDFyJIOa VPC6EWMdbGUfQ0a9EwFmtM TtG6C3EuMogXOiQ9T3EyKf dPOxM5R5TuDwcVUqHZRuwU XfTa8dyHUipNKria0jzi76 BDZ5u5LkoZunCPP4DVS0Le XoNy2pcSYlODWdQYQtfCEc XVIiMS9htJZmLKPbfN3hog xjXHBnYnJkcmhlYWRccGdi keXoVi7aeVwwWTH7CZahX5 lntF4gMpI3WGeyQ7yuhU2q JLh1EVivwDO0NMQtxQ0nXV 1osekgi4lzZlYgET7xfvwf w8jpRtPxBS0lvkq8c7kuWu PlQS0zplyli7vvKiFaMZvh CBWtfluwBVGdi9EwvnxtLK Yrh8LuL1BuzAzlQ93zkEkh P03rUVXonWeesD6acBvayO 5cZjBcZnMyNFxwYXJkXHBs YWluXGYxXGZzMjBcbGFuZz EwMzNcaGljaFxmMVxkYmNo MYGtFNfyC9vuNyUeFsOsWZ BBLiBSZWNlaXZlZCBpbiBm o3EiYOoixcYeDWNkgRObHX dpdGggdGhlIHBhdGllbnRc U9V6lvOhGF8jBKFvMHMvV8 EtACRtV00qZXHeaJ9aYIEs LY8jKZXef9PislRxxyunX8 8tz37pwU4wxNCdVTHrKXZc s27fyIS9hfQwKvQxOUZkNF FrTP9uZDWlikSdj7U7XWEn a1F2HAKrKNEcrFLrxksbPA 65WKtuKA00QPyfFS6lDZJn IwXRgZZpn8TkV8qtXP0enX Whp3JsyHf1hINlGHisTXJa yU6ubK3wTOClUFaubhIfiT luZSBCLiBSZWNlaXZlZCBp ypCwh0QgRIjhcbGzUYIrmD VkIHdpdGggdGhlIHBhdGll qeSpE9V2qiEsSA0tLVXiQZ YoH5RqJABcB43zMCPisZ9f WJIgBZ1fTUXiyFqxt1kfRF UsjL0wMBXzcCihIvVjgiMg B38lm1hnwBCiq6GiVjLiuX YpUZRjo8RjhTEsFMZfvjfa i46rzXS2zVQtpDOlrdXoL6 kjMwImelZrqKvvCYSce85l NN31RGtsNU9rDHgsJG1tSM FsJDHtKZYzIST2WITjFkE1 IDAuMiBjbSBhbmQgbWVhc3 HbvC8aWRNzCwE5LBShSvO8 TYLnDpCudCVoxlEuM9owKS iljYSxHJKkFPWidQIjaW2x uyEvouPnqEFauUU1OWDzmZ 0ljO01taMvztZSHR4nyRxk LMatbY2mHWFpVAOnF8Amle VbAQfxYWYsap7fxZmnSAln UmGeXQErf8g6pPL0eQVjwA J0zCSvvPnnDbTpVZ8hwKPm RM3lPWhzDUmnwyXsc0YtAQ 13vNMuraHjqzMzVtidm0Nd aAMtRcecCRJpFVTen33apC K2mgMqRfR6IMCjMUFfhdXt UzJ4VG4jeDopeyKpv8J5RO Frj0U5INLcJM7uiL9hNKdz IHNpemUgZnJvbSAwLjMgeC GtVxIgsORwLzFdC00iuH8v KG32LXiwDI7lNOjgYR7xUN NtIGFuZCBtZWFzdXJpbmcg NZ0kLByeAK87LMboAC4wQX BaRXskYIJnB9GmA1M0DY3y VGhlIHNwZWNpbWVuIGlzIH B1Xw4jsKAvKSHeodM3m0Rw VDivTSJxEnxdpB9wVBmcgw UpS4rSTZOcjs1= MICROSCOPIC DESCRIPTION r7ugfEHcEQLtkSW7NbOwST (test code = 3371) Ejd9lcw3MnnAIubKXgKSjf eNSdubPrtt79iLG3fE09ZK 4hWOXxDoJ6CXQpfaV3Lrj0 MYGqRMKwsNEpV735f7jvv9 yohkTtsGZ3wIwhYIFjmqkm GtI4BZsaRWBxrvtvNBi7NJ cxZBEfnMS0IUAhhCJgP0Zb TOCxYC2qimb4IDL9VMjqLB XcSbY9YKSbbSVsXEBacEfe YRnmy563NWI7JzAyMEBoob WvuXotaO2nFeHcZZFXOZFz KT7zHAfcQ5oyV6ThFJIoHP cmmRmvu5dmVI5qFU3xzKoj dpZnS8edlLRdvOBtanGoHh hqHP8zPBWrggmaARSoGa4o Nd4gx0oyljnddDHtwvDqxX 2cxCXnuAM4vH6mQFSmjzVe u7QzutOsZO7nzBFmzVYfrN IbZCC0l0BeQVUhBSHxwwFx XIfnM31zdhN3BKitQKYxQC 1yJZ0lNHwvbDgqm5YkR8Yr wtFetQSfp29vV8UzaIUvzy EtkyWbf8QnjlRfzpTet2B5 yV0eEYU0MJkbzo6iUOdkGD J9 [facility] [id number] 18:24:44Surgical Pathology Report Case: [id number] Authorizing Provider: Dewayne Wise MD Collected: 01/09/2022 11:31 AM Ordering Location: [facility] Endoscopy Received: 01/09/2022 03:51 PM [...] ROUTINE STAINS Signing Pathologist Direct Phone Line: [phone] signed by Evelin Wharton MD on 01/12/2022 at 6:24 [id number] reflux disease, polyp of colonA. Polyp, colon- right/ascendingB. Polyp, colon-sigmoidC. Biopsy, gastric,randomA. Received in formalin labeled with the patient's name, medical record number and "ascending c olon polyp" and consists of a piece of vazquez soft tissue measuring 0.5 x 0.4 x 0.2 cm. The specimen issubmitted in toto in A1.B. Received in formalin [...] BX" and consists of 5 pieces of vazquez- pink soft tissue ranging in size from 0.3 x 0.2 x0.2 cm to 0.4 x 0.3 x 0.2 cm and measuring 1.0 x 0.7 x 0.2 cm in aggregate. The specimen is submitted in toto in C1.KHHA-B. No high-grade dysplasia or malignancy is identified. C. No significant inflammation, intestinal metaplasia, dysplasia or malignancy is seen. No Helicobacter microorganisms are seen on routine stains.POC-Glucose [id number] 13:54:18 Test Item Value Reference Range Interpretation Comments POC-Glucose Meter (test 133 mg/dL 70-110 H : TE STED AT [facility] code = 1538) [address] [place] [address], [facility] 30: Block Machine Operator/Techni miguelina ID = [id number] for Marybel Earl Lab Interpretation (test Abnormal code = 65516-0) [facility]-Glucose [id number] 13:54:18 Test Item Value Reference Range Interpretation Comments POC-Glucose Meter (test 133 mg/dL 70-110 H : TE STED AT [facility] code = 1538) [address] [place] [place] [address], [facility] 30: Block Machine Operator/Techni miguelina ID = [id number] for Marybel Earl Lab Interpretation (test Abnormal code = 04602-6) [facility]-Glucose [id number] 13:54:18 Test Item Value Reference Range Interpretation Comments POC-Glucose Meter (test 133 mg/dL 70-110 H : TE STED AT [facility] code = 1538) [address] [place] [place] [address], 770 30: Block Machine Operator/Techni miguelina ID = [id number] for Rajat, Marybel Lab Interpretation (test Abnormal code = 55254-3) [facility]-Glucose [id number] 13:54:18 Test Item Value Reference Range Interpretation Comments POC-Glucose Meter (test 133 mg/dL 70-110 H : TE STED AT [facility] code = 1538) [address] [place] [address], 770 30: Block Machine Operator/Techni miguelina ID = [id number] for Rajat, Marybel Lab Interpretation (test Abnormal code = 98460-1) [facility]-Glucose [id number] 13:54:18 Test Item Value Reference Range Interpretation Comments POC-Glucose Meter (test 133 mg/dL 70-110 H : TE STED AT [facility] code = 1538) [address] [place] [place] [address], 770 30: Block Machine Operator/Techni miguelina ID = [id number] for Rajat, Marybel Lab Interpretation (test Abnormal code = 31347-7) [facility]-Glucose [id number] 13:54:18 Test Item Value Reference Range Interpretation Comments POC-Glucose Meter (test 133 mg/dL 70-110 H : TE STED AT [facility] code = 1538) [address] [place] [place] [address], 770 30: Block Machine Operator/Techni miguelina ID = [id number] for Rajat, Marybel Lab Interpretation (test Abnormal code = 38419-2) [facility]-Glucose [id number] 13:54:18 Test Item Value Reference Range Interpretation Comments POC-Glucose Meter (test 133 mg/dL 70-110 H : TE STED AT [facility] code = 1538) [address] [place] [place] [address], 770 30: Block Machine Operator/Techni miguelina ID = [id number] for Rajat, Marybel Lab Interpretation (test Abnormal code = 23227-5) [facility]-GLUCOSE [id number] 13:54:18 Test Item Value Reference Range Interpretation Comments POC-GLUCOSE METER 133 mg/dL 70-110 H : TESTED A T [facility] 67[address] (BEAKER) (test code = [facility], 1538) [address]: Block Machine Operator/Techni miguelina ID = [id number] for An gloria, Marybel POCT-GLUCOSE [id number] 10:12:16 Test Item Value Reference Range Interpretation Comments POC-GLUCOSE METER 135 mg/dL 70-110 H : TESTED Sourav Bourgeois [facility] [address] (JAEL) (test code = [facility] [place], 1538) [address]: Block Machine Operator/Techni miguelina ID = [id number] for MAYELA BROWNING SARS-CoV2/RT-PCR (Asymptomatic ONLY)2022-01-09 09:03:44 Test Item Value Reference Interpretation Comments Range SARS-COV2/RT-PCR Negative Negative The SARS-Co V-2 (test code = target nucleic 38740-6) acids are not detected in thi s [...] revoked sooner. Fact Sheet for Healthcare Providers: https://www.[employer]/Documents/Xp ert%20Xpress%20SAR S%20CoV-2/Fact%20S heets/302-6882%20S ARS-COV-2%20HEALTH CARE%20PROVIDERS%2 0FACT%20SHEET.pdf Fact Sheet for Healthcare Patients: https://www.[employer]/Documents/Xp ert%20Xpress%20SAR S%20CoV-2/Fact%20S heets/302-3801%20S ARS-COV-2%20PATIEN T%20FACT%20SHEET.p df Lab Interpretation Normal (test code = 52024-2) [facility]2022-01-09 09:03:44 Test Item Value Reference Interpretation Comments Range SARS-COV2/RT-PCR Negative Negative The SARS-Co V-2 (test code = target nucleic 22477-5) acids are not detected in thi s [...] revoked sooner. Fact Sheet for Healthcare Providers: https://www.[employer]/Documents/Xp ert%20Xpress%20SAR S%20CoV-2/Fact%20S heets/302-3802%20S ARS-COV-2%20HEALTH CARE%20PROVIDERS%2 0FACT%20SHEET.pdf Fact Sheet for Healthcare Patients: https://www.[employer]/Documents/Xp ert%20Xpress%20SAR S%20CoV-2/Fact%20S heets/302-3801%20S ARS-COV-2%20PATIEN T%20FACT%20SHEET.p df Lab Interpretation Normal (test code = 94217-3) [facility]2022-01-09 09:03:44 Test Item Value Reference Interpretation Comments Range SARS-COV2/RT-PCR Negative Negative The SARS-Co V-2 (test code = target nucleic 29676-9) acids are not detected in thi s [...] revoked sooner. Fact Sheet for Healthcare Providers: https://www.[employer]/Documents/Xp ert%20Xpress%20SAR S%20CoV-2/Fact%20S heets/3023802%20S ARS-COV-2%20HEALTH CARE%20PROVIDERS%2 0FACT%20SHEET.pdf Fact Sheet for Healthcare Patients: https://www.[employer]/Documents/Xp ert%20Xpress%20SAR S%20CoV-2/Fact%20S heets/3023801%20S ARS-COV-2%20PATIEN T%20FACT%20SHEET.p df Lab Interpretation Normal (test code = 89903-3) [facility]2022-01-09 09:03:44 Test Item Value Reference Interpretation Comments Range SARS-COV2/RT-PCR Negative Negative The SARS-Co V-2 (test code = target nucleic 22426-0) acids are not detected in thi s [...] revoked sooner. Fact Sheet for Healthcare Providers: https://www.[employer]/Documents/Xp ert%20Xpress%20SAR S%20CoV-2/Fact%20S heets/302-3802%20S ARS-COV-2%20HEALTH CARE%20PROVIDERS%2 0FACT%20SHEET.pdf Fact Sheet for Healthcare Patients: https://www.[employer]/Documents/Xp ert%20Xpress%20SAR S%20CoV-2/Fact%20S heets/302-3801%20S ARS-COV-2%20PATIEN T%20FACT%20SHEET.p df Lab Interpretation Normal (test code = 00880-7) [facility]2022-01-09 09:03:44 Test Item Value Reference Interpretation Comments Range SARS-COV2/RT-PCR Negative Negative The SARS-Co V-2 (test code = target nucleic 35936-8) acids are not detected in thi s [...] revoked sooner. Fact Sheet for Healthcare Providers: https://www.[employer]/Documents/Xp ert%20Xpress%20SAR S%20CoV-2/Fact%20S heets/302-3802%20S ARS-COV-2%20HEALTH CARE%20PROVIDERS%2 0FACT%20SHEET.pdf Fact Sheet for Healthcare Patients: https://www.[employer]/Documents/Xp ert%20Xpress%20SAR S%20CoV-2/Fact%20S heets/302-3801%20S ARS-COV-2%20PATIEN T%20FACT%20SHEET.p df Lab Interpretation Normal (test code = 47642-1) [facility]2022-01-09 09:03:44 Test Item Value Reference Interpretation Comments Range SARS-COV2/RT-PCR Negative Negative The SARS-Co V-2 (test code = target nucleic 77854-6) acids are not detected in thi s [...] revoked sooner. Fact Sheet for Healthcare Providers: https://www.[employer]/Documents/Xp ert%20Xpress%20SAR S%20CoV-2/Fact%20S heets/302-3802%20S ARS-COV-2%20HEALTH CARE%20PROVIDERS%2 0FACT%20SHEET.pdf Fact Sheet for Healthcare Patients: https://www.[employer]/Documents/Xp ert%20Xpress%20SAR S%20CoV-2/Fact%20S heets/302-3801%20S ARS-COV-2%20PATIEN T%20FACT%20SHEET.p df Lab Interpretation Normal (test code = 60097-5) [facility]2022-01-09 09:03:44 Test Item Value Reference Interpretation Comments Range SARS-COV2/RT-PCR Negative Negative The SARS-Co V-2 (test code = target nucleic 85240-9) acids are not detected in thi s [...] revoked sooner. Fact Sheet for Healthcare Providers: https://www.[employer]/Documents/Xp ert%20Xpress%20SAR S%20CoV-2/Fact%20S heets/302-3802%20S ARS-COV-2%20HEALTH CARE%20PROVIDERS%2 0FACT%20SHEET.pdf Fact Sheet for Healthcare Patients: https://www.[employer]/Documents/Xp ert%20Xpress%20SAR S%20CoV-2/Fact%20S heets/302-3801%20S ARS-COV-2%20PATIEN T%20FACT%20SHEET.p df Lab Interpretation Normal (test code = 52596-1) [facility])2022-01-09 09:03:44 Test Item Value Reference Range Interpretation Comments SARS-COV2/RT-PCR Negative Negative The SARS-Co V-2 target (test code = nucleic acids a re not 9114464) detected in thi s specimen. Negative result [...] revoked sooner. Fact Sheet for Healthcare Providers: https://www.[employer]/Documents/Xpert%20Xpress%20SARS%20CoV-2/Fact%20Sheets/3023802%04XOFI-HDV-3%20 HEALTHCARE%20PROVIDERS%20FACT%20SHEET.pdf Fact Sheet for Healthcare Patients: https://www.[employer]/Documents/Xpert%20Xp ress%20SARS%20CoV-2/Fact%20Sheets/3023801%64OGMG-PSD-0%20PATIENT%20FACT%20SHEET .[id number] 14:57:00 Test Item Value Reference Range Interpretation Comments SURG (test code = SURG) RUN DATE: 08/26/20 [facility] PAGE 1 RUN TIME: 1457 Specimen Inquiry RUN USER: INTERFACE PATIENT: PEPE ACOSTA LOC: ANDI U #: [id number] AGE/SX: 55/F ROOM: RE08/23/20REG DR: Tapan Harper MD : 69 BED: DIS: STATUS: [facility] TLOC: SPEC #: [id number] RECD: 08/23/20 STATUS: KRISTIN [place] #: [id number] AN: 08/23/20 [facility] DR: Tapan Harper MD ENTERED: 08/23/20 SP TYPE: SURG OTHR DR: Jaron Irving DO ORDERED: SURG PATH LVL 02/01 COPIES TO: Jaron Irving DO [address] [place] [address] Tapan Harper MD [address] [place], [place] [address] HISTOLOGY: TISSUE ID BLK PCS DIANE LEV [...] - R10.84; K59.00 CPT CODES CPT CODE(S): 79170Q0 , , , , , , FINAL DIAGNOSIS A. Colon, right, biopsy: COLONIC MUCOSA WITH NO PATHOLOGIC DIAGNOSIS B. Colon, mid, biopsy: COLONIC MUCOSA WITH NO PATHOLOGIC DIAGNOSIS CONTINUED ON NEXT PAGE RUN DATE: 08/26/20 [facility] PAGE 2 RUN TIME: 1457 Specimen Inquiry RUN USER: INTERFACE SPEC #: [id number] PATIENT: FREDERICKPEPE #[id number] (Continued) FINAL DIAGNOSIS (Continued) C. Colon, left, [...] all as C. ba/nr Grossing performed at [facility] Pathology, [address] [place] [address], [address], [place] [address]. Rental Sales Agent: Leeroy Jimenes M.D. MICROSCOPIC DESCRIPTION A. Right [...] 08/26/20 1457 END OF REPORT GLUCOSE BEDSIDE [id number] 08:29:00 Test Item Value Reference Range Interpretation Comments GLUCOSE BEDSIDE TESTING (test code 156 mg/dL 70-110 H = GLUBED) BASIC METABOLIC [id number] 12:40:00 Test Item Value Reference Range Interpretation [...] CA) 9.0 MG/DL 8.5-10.1 N BASIC METABOLIC [id number] 12:37:00 Test Item Value Reference Range Interpretation [...] 9.0 MG/DL 8.5-10.1 N COVID 19 INHOUSE [id number] 12:37:00 Test Item Value Reference Range Interpretation Comments COVID 19 INHOUSE AG NEGATIVE Negative Per manu facturer, (test code = negative result s should [id number]) be treated aspr esumptive and, if inconsi [...] symptoms co nsistent with COVID-19. CBC W/AUTO [id number] 12:23:00 Test Item Value Reference Range Interpretation [...] (test code NO DIFF/SCN CRITERIA = MDIFF) [id number] 15:34:00 RUN DATE: 12/13/19 [facility] LAB PAGE 1 RUN TIME: 1535 Specimen Inquiry RUN USER: INTERFACE ---- --------PATIENT: PEPE ACOSTA LOC: [facility] U #: [id number] AGE/SX: 54/F ROOM: RE12/11/19[facility] DR: Zacarias Rodriguez MD : 69 BED: DIS: STATUS: [facility] TLOC: SPEC #: [id number] RECD: 12/11/19-1052 STATUS: [place] #: [id number] AN: 12/11/[address]: Zacarias Rodriguez MD ENTERED: 12/11/19 SP TYPE: SURG OTHR DR: Shubham Irving DO ORDERED: SURG PATH LVL 01/31 COPIES TO: Jaron Irving DO [address] [place] [address] Zacarias Rodriguez MD [address] [place] [address] HISTOLOGY: TISSUE ID BLK PCS DIANE LEV PROCEDURE DISPOSITION ____ ___ ___ ___ GASTRIC ANTRUM A 1 3 GASTRIC ANTRUM B 1 3 PROCEDURES: SURG PATH LVL 4 (12/11/19) TISSUES: A. GASTRIC ANTRUM - GASTRIC BIOPSY B. GASTRIC ANTRUM - DISTAL GASTRIC BIOPSY CLINICAL HISTORY EPIGASTRIC PAIN -R10.13; NAUSEA -R11.0; VOMITING -R11.10 CPT CODES CPT CODE(S): 74026G0 , , , , , , FINAL DIAGNOSIS A. Stomach, biopsy: MILD CHRONIC GASTRITIS NEGATIVE FOR INTESTINAL METAPLASIA, DYSPLASIA, OR MALIGNANCY NEGATIVE FOR HELICOBACTER PYLORI ORGANISMS B. Stomach, distal, biopsy: MILD CHRONIC GASTRITIS NEGATIVE FOR INTESTINAL METAPLASIA, DYSPLASIA, OR MALIGNANCY CONTINUED ON NEXT PAGE RUN DATE: 12/13/19 [facility] PAGE 2 RUN TIME: 1535 Specimen Inquiry RUN USER: INTERFACE SPEC #: [id number] PATIENT: PEPE ACOSTA #[id number] (Continued)------ ------ FINAL DIAGNOSIS (Continued) NEGATIVE FOR HELICOBACTER PYLORI ORGANISMS GROSS DESCRIPTION A. Gastric biopsy. Received in formalin is a vazquez tissue fragment, 0.5 cm, all as A. B. Distal gastric biopsy. Received in formalin is a vazquez tissue fragment, 0.3 cm, all as B. shivam/nr Grossing performed at [facility] Pathology, [address] [place] [address], [address], [place] [address]. Rental Sales Agent: Leeroy Jimenes M.D. MICROSCOPIC DESCRIPTION A. Gastric [...] 12/13/19 1534 END OF REPORT GLUCOSE BEDSIDE [id number] 06:17:00 Test Item Value Reference Range Interpretation Comments GLUCOSE BEDSIDE TESTING (test code 170 mg/dL 70-110 H = GLUBED) UR HCG [id number] 11:12:00 Test Item Value Reference Range Interpretation Comments UR HCG QUAL (test code = HCGQLU) NEGATIVE NEGATIVE
--- NOTE | 2023-03-14 09:01 | RAD REPORT ---
EXAM DESCRIPTION: CT - Stone Protocol - 03/14/2023 8:40 am CLINICAL HISTORY: Flank pain. NAUSEA / VOMITING COMPARISON: Abdomen Pelvis W Contrast dated 11/16/2022 TECHNIQUE: Axial images were obtained without oral or IV contrast. Lack of contrast limits solid org an and vascular assessment. The jpovd-qe-qbbf spans the entirety of the system partially obscuring uppermost abdomen and lung bases. Coronal reformatted images were obtained and reviewed. All CT scans are performed using dose optimization technique as appropriate and may include automated exposure control or mA/KV adjustment according to patient size. FINDINGS: The lower lung platt are clear. Postsurgical changes are present about the stomach. Imaged portions of the liver and spleen show no suspicious findings on non-contrast imaging. The panc reas and adrenal glands are normal. No pathologic lymphadenopathy in the abdomen or pelvis. No urinary tract stones or obstructive uropathy. No bowel obstruction, free air, free fluid or abscess. Appendiceal stump is present. Moderate lower lumbar degenerative changes. IMPRESSION: No urinary tract stones or obstructive uropathy.
--- NOTE | 2023-03-14 09:01 | RAD REPORT ---
EXAM DESCRIPTION: RAD - Chest Single View - 03/14/2023 8:54 am CLINICAL HISTORY: flank pain Chest pain. COMPARISON: Chest Pa And Lat (2 Views) dated 10/28/2022; Chest Single View dated 09/04/2022; Chest Si ngle View dated 09/03/2022; Chest Single View dated 08/04/2022 FINDINGS: Portable technique limits examination quality. Mild interstitial pulmonary edema is present. Small left pleural effusion. The heart is upper limit o f normal in size. No displaced fractures. IMPRESSION: Mild CHF.
[2023-03-14] MEDS ORDERED: LIDOCAINE 4% PATCH ONE (09:44)
[2023-03-14 09:46] LABS: Specific Gravity 1.022 (1.005-1.030)
[2023-03-14 09:49] LABS: Specific Gravity 1.022 (1.005-1.030); Urine Bacteria 20-50 /HPF (<20); Urine Bilirubin NEGATIVE (Negative); Urine Blood Negative (Negative); Urine Clarity Clear (Clear); Urine Color Yellow (Yellow); Urine Glucose 3+ (Negative); Urine Mucus Slight /HPF (None Seen); Urine Protein 1+ (Negative); Urine RBC <5 /HPF (None Seen); Urine Urobilinogen Normal (Normal); Urine pH 5.5 (5.0-7.0)
--- NOTE | 2023-03-14 10:03 | EDPHYS ---
Physician Documentation [facility] Name: Maria De Jesus Acosta Age: 57 yrs Sex: Female : 1965 Arrival Date: 03/14/2023 Time: 08:00 Bed 14 Private MD: ED Physician Matt Hollingsworth HPI: 03/14 08:30 This 57 yrs old Female presents to ER via Ambulatory with complaints of Back cp Pain, right side pain. 08:30 The patient presents with pain that is acute, with no known mechanism of injury. The cp symptoms are located in the right flank. Onset: The symptoms/episode began/occurred 3 day(s) ago. The pain radiates to the abdomen. Associated signs and symptoms: Pertinent negatives: chest pain, constipation, dysuria, fever, headache, incontinence, numbness, tingling, weakness. The problem was sustained from unknown cause. Modifying factors: the patient symptoms are aggravated by any movement, pressure. Severity of symptoms: in the emergency department the symptoms are unchanged, despite home interventions. Historical: - Allergies: 08:11 Doxycycline; hb 08:11 metoclopramide HCl; hb 08:11 orange juice; hb 08:11 kiwi; hb 08:11 Reglan; hb - Home Meds: 08:11 Hydromorphone Oral for Severe Pain [Active]; hb - PMHx: 08:11 Asthma; CHF; COPD; Crohn's; Diabetes - NIDDM; Hypertension; Nasal cancer; hb - PSHx: 08:11 Appendectomy; Cholecystectomy; Ligation of fallopian tube; Shoulder; hb - Immunization history:: Adult Immunizations up to date. - Social history:: Smoking status: Patient denies any tobacco usage or history of. ROS: 08:35 Constitutional: Negative for body aches, chills, fever, poor PO intake. cp 08:35 Eyes: Negative for injury, pain, redness, and discharge. cp 08:35 ENT: Negative for drainage from ear(s), ear pain, sore throat, difficulty swallowing, difficulty handling secretions. 08:35 Cardiovascular: Negative for chest pain, edema, palpitations. 08:35 Respiratory: Negative for cough, shortness of breath, wheezing. 08:35 Abdomen/GI: Positive for abdominal pain, of the anterior aspect of right lateral abdomen and right upper quadrant, Negative for diarrhea, constipation, anorexia, active vomiting. 08:35 Back: Positive for flank pain, on the right. 08:35 : Negative for urinary symptoms, pelvic pain, vaginal bleeding. 08:35 Neuro: Negative for altered mental status, dizziness, headache, weakness. 08:35 All other systems are negative. Exam: 08:40 Constitutional: The patient appears in no acute distress, alert, awake, cp non-diaphoretic, non-toxic, well developed, well nourished, uncomfortable, morbid obesity 08:40 Head/Face: Normocephalic, atraumatic. cp 08:40 Eyes: Periorbital structures: appear normal, Conjunctiva: normal, no exudate, no injection, Sclera: no appreciated abnormality, Lids and lashes: appear normal, bilaterally. 08:40 ENT: External ear(s): are unremarkable, Nose: is normal, Mouth: Lips: moist, Oral mucosa: pink and intact, moist, Posterior pharynx: is normal, airway is patent, no erythema, no exudate. 08:40 Neck: ROM/movement: is normal, is supple, without pain, no range of motions limitations. 08:40 Chest/axilla: Inspection: normal. 08:40 Cardiovascular: Rate: tachycardic, Rhythm: regular, Edema: is not appreciated, JVD: is not appreciated. 08:40 Respiratory: the patient does not display signs of respiratory distress, Respirations: normal, no use of accessory muscles, no retractions, labored breathing, is not present, Breath sounds: are clear throughout, no decreased breath sounds, no stridor, no wheezing. 08:40 Abdomen/GI: Inspection: obese Bowel sounds: active, all quadrants, Palpation: soft, in all quadrants, moderate abdominal tenderness, in the anterior aspect of right lateral abdomen and right upper quadrant, rebound tenderness, is not appreciated, involuntary guarding, is not appreciated. 08:40 Back: vertebral tenderness, is not appreciated. 08:40 Skin: cellulitis, is not appreciated, no rash present. 08:40 Neuro: Orientation: to person, place \T\ time. Mentation: is normal, Motor: moves all fours, strength is normal, Gait: is steady, at a normal pace, without difficulty. Vital Signs: 08:10 BP 142 / 100; Pulse 102; Resp 18; Temp 97.3(TE); Pulse Ox 97% on R/A; Weight 142.43 kg; hb Height 5 ft. 3 in. ; Pain 8/10; 09:46 BP 118 / 69; Pulse 98; Resp 18 S; Pulse Ox 93% on R/A; kc6 10:14 BP 125 / 65; Pulse 99; Resp 17 S; Pulse Ox 93% on R/A; kc6 08:10 Body Mass Index 55.62 (142.43 kg, 160.02 cm) hb 08:10 Pain Scale: Adult hb MDM: 08:05 Patient medically screened. cp 08:45 Differential diagnosis: Obesity Pyelonephritis ruptured disc, sprain, Ureterolithiasis cp vertebral fracture, UTI, choledocholithiasis, pancreatitis. 10:02 Data reviewed: vital signs, nurses notes, lab test result(s), radiologic studies, CT cp scan, plain films. 10:02 Consideration of Admission/Observation Escalation of care including cp admission/observation considered. I considered the following discharge prescriptions or medication management in the emergency department Medications were administered in the Emergency Department. See MAR. Counseling: I had a detailed discussion with the patient and/or guardian regarding: the historical points, exam findings, and any diagnostic results supporting the discharge/admit diagnosis, lab results, radiology results, to return to the emergency department if symptoms worsen or persist or if there are any questions or concerns that arise at home. Response to treatment: the patient's symptoms have markedly improved after treatment, and as a result, I will discharge patient. 03/14 08:16 Order name: Urinalysis W/Microscopic; Complete Time: 09:52 03/14 09:52 Interpretation: Normal except: UGLUC 3+; UPROT 1+; UBACT 20-50. 03/14 08:16 Order name: PREGU; Complete Time: 09:52 03/14 08:16 Order name: CBC with Diff; Complete Time: 09:06 03/14 09:45 Interpretation: Normal except: RDW 15.8; EOSINOPHIL % 5.6; MN% 13.2. 03/14 08:16 Order name: CMP; Complete Time: 09:06 03/14 09:06 Interpretation: Normal except: NA 134; GLUC 238; GFR 81; ALT 64; GLOB 4.4; A/G 0.9. 03/14 08:16 Order name: Lipase; Complete Time: 09:06 cp 03/14 08:16 Order name: XRAY Chest (1 view); Complete Time: 09:06 cp 03/14 08:16 Order name: CT Stone Protocol; Complete Time: 09:06 cp 03/14 08:16 Order name: IV Saline Lock; Complete Time: 08:33 cp 03/14 08:16 Order name: Labs collected and sent; Complete Time: 08:33 cp Administered Medications: 08:33 Drug: Ondansetron IVP 4 mg Route: IVP; Site: right antecubital; kc6 09:14 Follow up: Response: No adverse reaction; Nausea is decreased kc6 08:33 Drug: HYDROmorphone IVP 1 mg Route: IVP; Site: right antecubital; kc6 09:14 Follow up: Response: No adverse reaction; Pain is decreased; RASS: Alert and Calm (0) kc6 08:33 Drug: NS 0.9% IV 500 ml Route: IV; Rate: 75 ml/hr; Site: right antecubital; kc6 10:26 Follow up: Response: No adverse reaction; IV Status: Completed infusion kc6 09:41 Drug: Lidoderm Topical Patch 5 % (700 mg/patch) 1 patches Route: Topical; Site: kc6 affected area; 10:27 Follow up: Response: No adverse reaction; Pain is decreased kc6 10:14 Drug: Rocephin IV 1 grams Route: IV; Rate: calculated rate; Site: right antecubital; kc6 10:27 Follow up: Response: No adverse reaction; IV Status: Completed infusion; IV Intake: [id number] 10:14 Drug: Ketorolac IVP 15 mg Route: IVP; Site: right antecubital; kc6 10:27 Follow up: Response: No adverse reaction; Pain is decreased kc6 Disposition Summary: 03/14/23 10:03 Discharge Ordered Location: Home cp Problem: new cp Symptoms: have improved cp Condition: Stable cp Diagnosis - Dorsalgia, unspecified cp - UTI/ Urinary tract infection, site not specified cp Followup: cp - With: Private Physician - When: 2 - 3 days - Reason: Recheck today's complaints Discharge Instructions: - Discharge Summary Sheet cp - Acute Back Pain, Adult cp - Urinary Tract Infection, Adult cp Forms: - Medication Reconciliation Form cp - Thank You Letter cp - Antibiotic Education cp - Prescription Opioid Use cp Prescriptions: - Diclofenac Sodium 75 mg Oral tablet,delayed release (DR/EC) - take 1 tablet by ORAL route 2 times per day; 20 tablet; Refills: 0, Product cp Selection Permitted - cefpodoxime 200 mg Oral Tablet - take 1 tablet by ORAL route every 12 hours for 5 days with food; 10 tablet; cp Refills: 0, Product Selection Permitted Signatures: Dispatcher [employer] EDMS Dominguez Thompson PA PA cp Azul Ta RN RN Lizzette Hobbs RN RN kc6 Corrections: (The following items were deleted from the chart) 09:45 09:06 Normal except: RDW 15.8. cp cp 09:45 09:44 Normal except: RDW 15.8; EOSINOPHIL % 5.6. cp cp
--- NOTE | 2023-03-14 10:03 | ER ---
Nurse's Notes [facility] Name: Maria De Jesus Acosta Age: 57 yrs Sex: Female : 1965 Arrival Date: 03/14/2023 Time: 08:00 Bed 14 Private MD: Diagnosis: Dorsalgia, unspecified;UTI/ Urinary tract infection, site not specified Presentation: 03/14 08:10 Chief complaint: Right flank pain x 3 days. Denies urinary symptoms/injury. Coronavirus hb screen: At this time, the client does not indicate any symptoms associated with coronavirus-19. Ebola Screen: No symptoms or risks identified at this time. Initial Sepsis Screen: Does the patient meet any 2 criteria? No. Patient's initial sepsis screen is negative. Does the patient have a suspected source of infection? No. Patient's initial sepsis screen is negative. Risk Assessment: Do you want to hurt yourself or someone else? Patient reports no desire to harm self or others. Onset of symptoms was March 11, 2023. 08:10 Method Of Arrival: Ambulatory hb 08:10 Acuity: EMERALD 3 hb Historical: - Allergies: 08:11 Doxycycline; hb 08:11 metoclopramide HCl; hb 08:11 orange juice; hb 08:11 kiwi; hb 08:11 Reglan; hb - Home Meds: 08:11 Hydromorphone Oral for Severe Pain [Active]; hb - PMHx: 08:11 Asthma; CHF; COPD; Crohn's; Diabetes - NIDDM; Hypertension; Nasal cancer; hb - PSHx: 08:11 Appendectomy; Cholecystectomy; Ligation of fallopian tube; Shoulder; hb - Immunization history:: Adult Immunizations up to date. - Social history:: Smoking status: Patient denies any tobacco usage or history of. Screenin:11 [facility] ED Fall Risk Assessment (Adult) History of falling in the last 3 months, kc6 including since admission No falls in past 3 months (0 pts) Confusion or Disorientation No (0 pts) Intoxicated or Sedated No (0 pts) Impaired Gait No (0 pts) Mobility Assist Device Used No (0 pt) Altered Elimination No (0 pt) Score/Fall Risk Level 0 - 2 = Low Risk Oriented to surroundings, Maintained a safe environment, Educated pt \T\ family on fall prevention, incl call for assistance when getting out of bed, Assessed \T\ reinforced patient's understanding of fall precautions, Hourly rounding (assess needs \T\ fall precautionary measures) done. Abuse screen: Denies threats or abuse. Denies injuries from another. Nutritional screening: No deficits noted. Tuberculosis screening: No symptoms or risk factors identified. Assessment: 08:11 General: Appears in no apparent distress. comfortable, obese, Behavior is calm, kc6 cooperative, appropriate for age. Pain: Complains of pain in right flank, right lower back. Neuro: Seymour Agitation-Sedation Scale (RASS): 0 - Alert and Calm Level of Consciousness is awake, alert, obeys commands, Oriented to person, place, time, situation, Appropriate for age. Cardiovascular: Capillary refill < 3 seconds. Respiratory: Airway is patent Trachea midline Respiratory effort is even, unlabored, Respiratory pattern is regular, symmetrical. GI: No signs and/or symptoms were reported involving the gastrointestinal system. : No signs and/or symptoms were reported regarding the genitourinary system. EENT: No signs and/or symptoms were reported regarding the EENT system. Derm: No signs and/or symptoms reported regarding the dermatologic system. Skin is intact, Skin is pink, warm \T\ dry. Musculoskeletal: No signs and/or symptoms reported regarding the musculoskeletal system. Circulation, motion, and sensation intact. Capillary refill < 3 seconds, Range of motion: intact in all extremities. 09:11 Reassessment: Patient appears in no apparent distress at this time. No changes from kc6 previously documented assessment. Patient and/or family updated on plan of care and expected duration. Pain level reassessed. Patient is alert, oriented x 3, equal unlabored respirations, skin warm/dry/pink. 10:11 Reassessment: Patient appears in no apparent distress at this time. No changes from kc6 previously documented assessment. Patient and/or family updated on plan of care and expected duration. Pain level reassessed. Patient is alert, oriented x 3, equal unlabored respirations, skin warm/dry/pink. Vital Signs: 08:10 BP 142 / 100; Pulse 102; Resp 18; Temp 97.3(TE); Pulse Ox 97% on R/A; Weight 142.43 kg; hb Height 5 ft. 3 in. ; Pain 8/10; 09:46 BP 118 / 69; Pulse 98; Resp 18 S; Pulse Ox 93% on R/A; kc6 10:14 BP 125 / 65; Pulse 99; Resp 17 S; Pulse Ox 93% on R/A; kc6 08:10 Body Mass Index 55.62 (142.43 kg, 160.02 cm) hb 08:10 Pain Scale: Adult hb ED Course: 08:02 Patient arrived in ED. am2 08:05 Dominguez Thompson PA is PHCP. cp 08:05 Matt Hollingsworth MD is Attending Physician. cp 08:06 Lizzette Hobbs RN is Primary Nurse. kc6 08:11 Triage completed. hb 08:11 Arm band placed on. hb 08:12 Patient has correct armband on for positive identification. Bed in low position. Call kc6 light in reach. Side rails up X 1. Adult w/ patient. 08:33 Inserted saline lock: 20 gauge in right antecubital area, using aseptic technique. kc6 Blood collected. 08:42 CT Stone Protocol In Process Unspecified. EDMS 08:55 XRAY Chest (1 view) In Process Unspecified. EDMS 10:25 No provider procedures requiring assistance completed. IV discontinued, intact, kc6 bleeding controlled, No redness/swelling at site. Pressure dressing applied. Administered Medications: 08:33 Drug: Ondansetron IVP 4 mg Route: IVP; Site: right antecubital; kc6 09:14 Follow up: Response: No adverse reaction; Nausea is decreased kc6 08:33 Drug: HYDROmorphone IVP 1 mg Route: IVP; Site: right antecubital; kc6 09:14 Follow up: Response: No adverse reaction; Pain is decreased; RASS: Alert and Calm (0) kc6 08:33 Drug: NS 0.9% IV 500 ml Route: IV; Rate: 75 ml/hr; Site: right antecubital; kc6 10:26 Follow up: Response: No adverse reaction; IV Status: Completed infusion kc6 09:41 Drug: Lidoderm Topical Patch 5 % (700 mg/patch) 1 patches Route: Topical; Site: kc6 affected area; 10:27 Follow up: Response: No adverse reaction; Pain is decreased kc6 10:14 Drug: Rocephin IV 1 grams Route: IV; Rate: calculated rate; Site: right antecubital; kc6 10:27 Follow up: Response: No adverse reaction; IV Status: Completed infusion; IV Intake: [id number] 10:14 Drug: Ketorolac IVP 15 mg Route: IVP; Site: right antecubital; kc6 10:27 Follow up: Response: No adverse reaction; Pain is decreased kc6 Medication: 10:26 VIS not applicable for this client. kc6 Intake: 10:27 IV: 10ml; Total: 10ml. kc6 Outcome: 10:03 Discharge ordered by . annie 10:25 Discharged to home ambulatory, with family. kc6 10:25 Condition: improved 10:25 Discharge instructions given to patient, Instructed on discharge instructions, follow up and referral plans. medication usage, Demonstrated understanding of instructions, follow-up care, medications, Prescriptions given X 2. 10:27 Patient left the ED. kc6 Signatures: Dispatcher [employer] EDMS Dominguez Thompson PA PA cp Baxter, Heather, RN RN hb Moreno, Amanda [facility] Lizzette Hobbs RN RN kc6
[2023-03-14] MEDS ORDERED: KETOROLAC 30 MG/ML INJ ONE (10:16)
[2023-03-14] MEDS ORDERED: CEFTRIAXONE 1000 MG/VIAL ONE (10:16)
[2023-03-14 10:45] VITALS: TEMP 97.3
[2023-03-14 10:58] VITALS: O2SAT 93
[2023-03-14 10:59] VITALS: BP 125/65
== END 2023-03-14 10:27 | disposition home or self-care (01) ==
LOC: ER 08:00
DX: N39.0 Urinary tract infection, site not specified (principal); I10 Essential (primary) hypertension; Z88.1 Allergy status to other antibiotic agents; Z88.8 Allergy status to other drugs, medicaments and biological substances; Z91.018 Allergy to other foods
CPT/HCPCS: 96361; 85025; 81001; 36415; 81025; 83690; 80053; 76377; 74176; 71045; 96375; 96374; 99284; J2001; J1170; J2405; J7040; J0696

== ENCOUNTER 2023-03-19 19:19 | Inpatient (IN) | payer OTHER ==
--- OUTSIDE RECORDS SUMMARY | 2023-03-19 19:30 | XMS REPORT | Clinical Summary ---
:1965 Author Organization [facility] MD Ruelas [facility] Address [address] [place] [address] Care Team Providers Name Role Phone Bina Obando MD Unavailable Kenya Agarwal MD Primary Care Provider Trent Irving MD Unavailable Randall Sheriff MD Unavailable Vignesh Waddell MD Unavailable Naa Miller [facility] Rafael Rosas MD Unavailable Suzanne [...] to her allergies f ollowing a procedure Freestone Juice Nausea And Low 04/18/2021 Vomiting, GI [...] Active (Easy Comfort Pen insulin 4 23 Prospect) 31 gauge x times a day 03/16" [...] needed Cancer associated pain for severe pain. cefPODoxime (VANTIN) Take 1 tablet 0 03/14/20 Active 200 mg tablet (200 mg) by 23 mouth twice daily. allopurinol (ZYLOPRIM) TAKE 1 TABLET 0 09/01/2021/12 [...] DAILY dicyclomine (BENTYL) TAKE 1 CAPSULE 0 10/12/2012/31 0/ Discontinued 10 mg capsule BY MOUTH EVERY [...] unit/mL (Stop Taking at (70-30) injection Di [facility]) Victoza 2-Ze 0.6 ADMINISTER 1.8 0 10/01/20 [...] 5/32" ndle rizatriptan 0 08/25/20 Disconti nued (MAXALT-[employer]CIAL INSURANCE UNDERWRITER) 5 mg (E rror) disintegrating tablet spironolactone [...] scontinued (DILAUDID) 2 mg (2 mg) by (Sto p Taking at tabletIndications: mouth every 4 Discharge) Adenocarcinoma of (four) hours nasopharynx as needed (cancer pain). dexamethasone Take 1 tablet 60 tablet 0 12/05/19 Di scontinued (DECADRON) 2 mg (2 mg) by (Err or) tabletIndications: mouth twice Adenocarcinoma of [...] mg/mL (2%) viscous swallow 5 mL 23 023 (Stop Taking at solutionIndications: every 6 (six) [...] n (Percocet) 5 mg-325 by mouth every 023 (Reorder) mg per 4 (four) hours tabletIndications: as needed for Neoplasm related pain moderate pain. (acute) (chronic) oxyCODONE-acetaminophe Take 1 tablet 60 tablet 0 01/19/2012/31 Discontinued n (Percocet) 5 mg-325 by mouth every 023 (Stop Taking at mg per 6 (six) hours Discha rge) tabletIndications: as needed for Neoplasm related pain severe pain. (acute) (chronic) cyclobenzaprine Take 1 tablet 60 tablet 0 01/19/20 Discontinued (FLEXERIL) 10 mg (10 mg) by 023 (T herapy tabletIndications: mouth 3 c ompleted) Cancer associated pain (three) times a day as needed for muscle spasms (neck pain). xyloxylin oral Swish and 480 mL 1 01/19/20 Disco ntinued suspension swallow 10 mL 023 (Reor teetee) (AMB-CMPD)Indications: every 6 (six) Ulcerative oral hours as mucositis due to needed for antineoplastic therapy mouth pain. sucralfate (CARAFATE) Take 10 mL 420 mL 0 01/19/20 Discontinued 100 mg/mL (1,000 mg) by 023 (Reord er) suspensionIndications: mouth 4 (four) Ulcerative [...] swallow 10 mL 023 (Reor teetee) (AMB-CMPD)Indications: every 6 (six) Ulcerative [...] gauge x DIRECTED FOUR (Stop Taking at 5/16 syrgIndications: TIMES DAILY Discharge) Type 2 diabetes [...] (100 mg) by 023 (Stop Taking at tabletIndications: mouth 3 D ischarge) hypertension (three) times a day. 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 12/10/2022 Current use of insulin 12/10/2022 Adverse effect of glucocorticoids and synthetic analog ues 12/10/2022 Headache 12/09/2022 Adenoid cystic carcinoma of nasopharynx, NOS 3 Cancer Staging: Clinical stage from 10/01: Stage WINDY (cT4, cN0, cM0) - Unsigned Essential hypertension 02/15/2020 Gastroesophageal reflux disease 07/28/2018 Other hyperlipidemia 07/28/2018 Severe protein-calorie malnutrition Encounters Date Type Specialty Care Team Description 03/18/2023 Telephone Oncology Vaibhav Rosario MD 03/16/2023 Orders Only Oncology Lemuel, Adenoid cystic [place]ore[place] carcinoma of Kayla, EXECUTIVE CHEF nasopharynx, 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) 03/12/2023 Nutrition Nutrition Kenya Agarwal MD Martin, Cathy A, ADAM 03/11/2023 Infusion Infusion Services Melia Hdezid cy stic [place] carcinoma of Kayla, EXECUTIVE CHEF nasopharynx, 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) 03/11/2023 Follow-Up Oncology Lemuel, Adenoid cystic [place] carcinoma of Kayla, EXECUTIVE CHEF nasopharynx, 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) 03/11/2023 Travel 03/09/2023 Telephone Oncology Lorena Hdez, EXECUTIVE CHEF 03/04/2023 Nutrition Nutrition Kenya Agarwal MD Martin, Cathy A, ADAM 03/04/2023 Orders Only Oncology Lorena Hdez, EXECUTIVE CHEF 03/04/2023 Telephone Thoracic Medicine Tiat Kwon RN 03/04/2023 Orders Only Pain Medicine Gordon, Cancer associa kaylie Fernandez MD pain (Primary Dx) 03/03/2023 Follow-Up Thoracic Medicine Duy Rosario stic carcinoma of nasopharynx, NOS; MD Vaibhav Deep venous thr ombosis <Unspecified side> 03/03/2023 Refill Pain Medicine Tyrell, Chronic pain Anumol, HOME CONNECT LPN 03/03/2023 Travel 03/02/2023 Refill Pain Medicine Tyrell Chronic pain Anumol, HOME CONNECT LPN 02/26/2023 Telemedicine Pain Medicine Evan, Chronic pain ( Primary Miguel Fernandez MD Dx) 02/25/2023 Nutrition Kenya Gastelum MD Martin, Cathy A, ADAM 02/19/2023 Telephone Radiation Oncology Anthony Lancaster, RN 02/18/2023 Nutrition Kenya Gastelum MD Martin, Cathy A, ADAM 02/12/2023 Clinical Support Radiation Oncology Winter Luu MD 02/12/2023 Hospital Encounter Radiation Oncology Kenya Agarwal MD 02/12/2023 Documentation Radiation Oncology Winter Luu MD 02/12/2023 Orders Only Radiation Oncology Winter Luu Adenocarc inoma of nasopharynx (Primary Dx); MD Gini Adenoid cystic carcinoma of nasopharynx, NOS 02/12/2023 Orders Only Pain Medicine Bruce, Neoplasm relat ed pain (acute) (chronic) (Primary Dx); MD Elvis Chronic pain 02/10/2023 Orders Only Speech Pathology Charla Solis Oropharynge jessica Eckert, [facility]-[employer] FIN[employer] dysphagia (Prim cristina Dx) 02/08/2023 Hospital [...] 02/04/2023 Clinical Support Radiation Oncology Winter Luu Adeno carcinoma of nasopharynx (Primary Dx); MD Gini Adenoid cystic carcinoma of nasopharynx, NOS 02/04/2023 Travel 02/03/2023 Infusion Infusion Services Duy Rosario MD carcinoma of nasopharynx, 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) 02/03/2023 Orders Only Oncology Lorena Hdez, EXECUTIVE CHEF 02/03/2023 Travel 02/02/2023 Travel 01/31/2023 Refill Internal Medicine Rohan, Type 2 juliet ryan Peñaloza, mellitus with END POLISHER hyperglycemia (Primary Dx) 01/28/2023 Telephone Radiation Oncology Felisa Castillo RN 01/28/2023 Orders Only Oncology [place]orena Hdez, [facility] 01/26/2023 Hospital Encounter Uro/Ortho/GI Wattana, Chronic p ain (Primary Dx); - MD [...] 01/26/2023 Travel 01/26/2023 Telephone Radiation Oncology Felisa Castillo RN 01/26/2023 Telephone Radiation Oncology Felisa Castillo RN 01/25/2023 Nutrition Nutrition Kenya Agarwal, Lian Russell, RD 01/25/2023 Hospital Encounter Radiation Oncology Kenya Agarwal MD 01/25/2023 Telephone Radiation Oncology Felisa Castillo RN 01/22/2023 Nutrition Nutrition Kenya Agarwal, Lian Russell, RD 01/22/2023 Travel 01/21/2023 Infusion Infusion Services Hdez, Adenoid cy stic Lorena carcinoma of Kayla, EXECUTIVE CHEF nasopharynx, 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) 01/21/2023 Follow-Up Thoracic Medicine Melia Rosarioid cy rain Esposito MD carcinoma of nasopharynx, 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) 01/21/2023 Travel 01/20/2023 Consult Pain Medicine Williams, 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..] of glucocorticoids and synthetic analogues, subsequent encounter; 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 curre nt use of systemic steroid; Hyperlipidemia, [...] ADAM 01/08/2023 Travel 01/07/2023 Infusion Infusion Services Hdez, Adenoid cy stic Lorena carcinoma of Kayla, EXECUTIVE CHEF nasopharynx, 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) 01/07/2023 Follow-Up Oncology Hdez, Adenoid cystic [place]na carcinoma of Kayla, EXECUTIVE CHEF nasopharynx, 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) 01/07/2023 Travel 01/06/2023 Infusion Infusion Services Hdez, Adenoid cy stic [place] carcinoma of Kayla, EXECUTIVE CHEF nasopharynx, 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) 01/06/2023 Travel 01/05/2023 Travel 01/04/2023 Clinical Support Radiation Oncology Winter Luu MD nasopharynx (Pr imary Dx) 01/04/2023 Infusion Infusion Services Lemuel, Adenoid cy stic [place] carcinoma of Kayla, EXECUTIVE CHEF nasopharynx, 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) 01/04/2023 Travel 01/01/2023 Infusion Infusion Services Lemuel, Adenoid cy stic [place] carcinoma of Kayla, EXECUTIVE CHEF nasopharynx, 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) 01/01/2023 Follow-Up Thoracic Medicine Duy Rosario cy stic carcinoma of nasopharynx, NOS (Primary Dx); MD Vaibhav Neoplasm relate d pain (acute) (chronic) 01/01/2023 Refill Pain Medicine Geo, Neoplasm relat ed pain Brittni Benjamin, RN (acute) (chroni c) 01/01/2023 Travel 12/31/2022 Telephone Thoracic Medicine Doyle, Pain med r sabrinaest and Tita Mayorga, nausea - missed RN treatment 12/31/2022 Orders Only Oncology Lemuel, Adenoid cystic Lorena carcinoma of Kayla, EXECUTIVE CHEF nasopharynx, 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) 12/30/2022 Hospital Encounter Pain Medicine Evan, Cancer a ssociated pain (Primary Dx); Miguel Fernandez MD Headache, not otherwise specified 12/30/2022 Travel 12/29/2022 Hospital Encounter Ophthalmology Alcides, Adenocar cinoma of nasopharynx; MD Suzanne Sixth (abducent ) nerve palsy, left eye; Diplopia; Corneal anesthe eleazar <Left side>; Disorder of tri geminal nerve, not otherwise specified 12/29/2022 Travel 12/28/2022 Clinical Support Radiation Oncology Winter Luu MD 12/28/2022 Nutrition Nutrition Kenya Agarwal MD Martin, Cathy A, ADAM 12/28/2022 Travel 12/25/2022 Travel 12/24/2022 Infusion Infusion Services Lemuel, Adenoid cy stic [place]orena carcinoma of Kayla, EXECUTIVE CHEF nasopharynx, 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) 12/24/2022 Follow-Up Thoracic Medicine Melia Rosarioid cy stic MD Vaibhav carcinoma of nasopharynx, NO S 12/24/2022 Telephone Radiation Oncology Felisa Castillo, RN 12/24/2022 Telephone Head and Neck Kenya [...] Results ( Test Tita Mayorga, note-per Daniela GARBER request) 12/23/2022 Travel 12/23/2022 Orders Only Oncology Hdez, Adenoid cystic Lorena carcinoma of Kayla, EXECUTIVE CHEF nasopharynx, 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) 12/18/2022 Orders Only Radiation Oncology Lindy Montenegro PA 12/18/2022 Orders Only Radiation Oncology [place], Adenocarc inoma of Lindy nasopharynx BALJINDER Sotelo 12/17/2022 Clinical Support Radiation Oncology Kenya Agarwal MD Lawrence, Holly D, RN 12/17/2022 Documentation Radiation Oncology Winter Luu MD 12/17/2022 Documentation Radiation Oncology Winter Luu MD 12/17/2022 Documentation Radiation Oncology Winter Luu MD 12/17/2022 Orders Only Oncology Hdez, Adenoid cystic Lorena carcinoma of Kayla, EXECUTIVE CHEF nasopharynx, 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) 12/17/2022 Travel 12/17/2022 Orders Only Radiation Oncology Winter Luu MD 12/16/2022 Orders Only Radiation Oncology Winter Luu Adenocarc inoma of MD Gini nasopharynx (Pr imary Dx) 12/16/2022 Telephone Radiation Oncology Felisa Castillo, RN 12/16/2022 Telephone Endocrinology Rosmery Dickinson, ADAM 12/15/2022 Hospital Encounter Dental Oncology Kenya Agarwal MD observation for other suspected disea se ruled out 12/15/2022 Refill Radiation Oncology Lan, Adenocarc inoma of Lindy nasopharynx BALJINDER Sotelo 12/15/2022 Orders Only Pain Medicine Williams, Neoplasm rela kaylie pain Rogerio, (acute) (chron ic) (Primary Dx) 12/15/2022 Orders Only Pain Medicine Rogerio Kramer MD 12/15/2022 Orders Only Ophthalmology [facility], Sixth (abducen t) Maya, OD nerve palsy, le ft eye (Primary Dx) 12/15/2022 Ophth Exam Ophthalmology Dawson, Maya, OD 12/14/2022 Orders Only Dental Oncology Martínez, Encounter fo marsha Hdz MD observation for other suspected disea se ruled out (Prim cristina Dx) 12/11/2022 Telephone Dental Oncology Triston Gomez RN 12/10/2022 Travel 12/10/2022 Orders Only Dental Oncology Martínez, Encounter fo marsha Hdz MD observation for other suspected disea [...] Hancock, Hypertension; Rudy, Gastroesophage al reflux disease MD Lopez, MD Bridget Robles Norman, MD Leung, Cerena, MD 12/08/2022 Telephone Radiation Oncology Lindy Montenegro PA 12/08/2022 Orders Only Oncology Hdez, Adenoid cystic Lorena carcinoma of Kayla, [facility] nasopharynx, 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) 12/05/2022 Telephone Radiation Oncology Winter Luu MD 12/05/2022 Orders Only Radiation Oncology Winter Luu Adenocarc inoma of MD Gini nasopharynx (Pr imary Dx) 12/04/2022 Hospital Encounter Matthew Benitez MD HessLorena, [facility] 12/04/2022 Telephone Head and Neck Antonella, Surgery Red Costa APN 12/04/2022 Multidisciplinary Visit Head and Neck Antonella, Surgery Red Costa, HOME CONNECT LPN 12/04/2022 Telephone Radiation Oncology Maria Luz Cochran, RN 12/02/2022 Orders Only Radiation Oncology Lan Adenocarc inoma of Lindy nasopharynx (Pr imBALJINDER Mendez Dx) 12/02/2022 Orders Only Radiation Oncology Winter Luu Adenocarc inoma frankie Rubalcava MD nasopharynx (Pr imary Dx) 11/30/2022 Ancillary Procedure Radiology Lemuel, Adenocar cinoma of Lorena nasopharynx Kayla, [facility] 11/30/2022 Travel 11/27/2022 Ancillary Procedure Radiology [place], Adenocar cinoma of nasopharynx; 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 BALJINDER Sotelo 11/27/2022 Travel 11/26/2022 [facility] Adenocarc[facility] noma of MD Vaibhav nasopharynx 11/26/2022 Consult Radiation Oncology Winter Luu Adenocarc inoma of nasopharynx; 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 11/26/2022 Travel 11/24/2022 Lab Requisition David Nunez MD Xu, Ya, MD 11/23/2022 Telephone Oncology Ofe Bardales, JCARLOS 11/22/2022 Orders Only Dental Oncology Olivier, Encounter rani Gooden MD observation for other suspected condi tion ruled out (Prim cristina Dx) 11/20/2022 Telephone Surgical Oncology Elana Child RN 11/17/2022 Office Visit Head and Neck Kenya Agarwal Adenocarcinoma of Surgery MD Sarah nasopharynx 11/17/2022 NPR Patient Access Kenya Agarwal Services MD Sarah 11/17/2022 Travel 11/16/2022 Orders Only Head and Neck McAnulty, Adenocarcinoma of Surgery Red Costa, nasopharynx (Pr imary HOME CONNECT LPN Dx) 11/12/2022 Orders Only Head and Neck Honeycutt, Surgery BALJINDER Branch 11/12/2022 Orders Only Head and Neck McAnulty, Adenocarcinoma of nasopharynx (Primary Dx); Surgery Red M, 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 HOME CONNECT LPN after 03/19/2022 Surgical History Surgery Date Site/Laterality Comments APPENDECTOMY [id number] COLONOSCOPY [id number] CHOLECYSTECTOMY [id number] KNEE ARTHROPLASTY Right SHOULDER SURGERY 050@2010 Left UPPER GASTROINTESTINAL ENDOSCOPY [id number] SECTION, CLASSIC 11/01/1984 - 10/31/1985 PARTIAL HYSTERECTOMY 03/01/2012 - 03/31/2012 MYRINGOTOMY WITH ASPIRATION AND 11/01/2019 - 10/31/2020 INSERTION PE TUBES SLEEVE GASTROPLASTY N/A Medical History Medical History Date Comments Hypertension [id number] Hyperlipidemia [id number] Hearing loss [id number] Allergic rhinitis [id number] Difficulty talking 12082655 Swallowing problem 45256263 Asthma 96243005 Chronic bronchitis 20366982 Dependence on continuous positive airway 98777736 pressure ventilation Fatty liver 30735153 Gastric reflux 45311985 Gastric ulcer 71927747 Crohn's disease 07357287 Gout 36035490 Type 2 diabetes mellitus with hyperglycemia 3986608 Anxiety 70340996 Chronic obstructive pulmonary disease On home supplemental [...] at Date Recorded Female 11/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 Not on [...] Treatment Date Type Specialty Care Team Description 03/25/2023 Follow-Up Pain Medicine Miguel Gordon MD [address] [place] [address] 04/01/2023 Appointment Speech Pathology Monico Poole MD [address] [place] [id number] Charla Solis, [facility]-[employer] [address] [place] [address] 04/01/2023 Office Visit Hematology Rosana Harkins MD [address] [place] [address] 04/15/2023 Telemedicine Gastroenterology, Sudhakar Saez, Hepatology & Nutrition [address] [place] [address] 04/22/2023 Lab Lab Winter Luu MD [address] [place], [place] [address] 04/22/2023 Ancillary Procedure Radiology Winter Luu MD [address] [place], [place] [address] 04/22/2023 Follow-Up Radiation Oncology Winter Luu MD [address] [place], [place] [address] 04/22/2023 Follow-Up Thoracic Medicine Vaibhav Rosario MD [address] [place], [place] [address] 07/22/2023 Appointment Ophthalmology Suzanne Mcgrath MD [address] [place], [place] [address] Health Maintenance Due Date Last Done [...] the results section. 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 Results CBC Routine 01/07/2023 Adenoid cystic Results for 8:28 AM RESIDENTIAL SUPERVISOR carcinoma of this procedure nasopharynx, NOS are in the results section. FRACTIONATED BILIRUBIN Routine 01/07/2023 Adenoid cystic Res ults for 8:28 AM RESIDENTIAL SUPERVISOR carcinoma of this procedure nasopharynx, NOS are in the results section. TOTAL PROTEIN Routine 01/07/2023 Adenoid cystic Results for 8:28 AM RESIDENTIAL SUPERVISOR carcinoma of this procedure nasopharynx, NOS are in the results section. ASPARTATE AMINOTRANSFERASE Routine 01/07/2023 Adenoid cystic Results for 8:28 AM RESIDENTIAL SUPERVISOR carcinoma of this procedure nasopharynx, NOS are in the results section. ALANINE AMINOTRANSFERASE Routine 01/07/2023 Adenoid cystic R esults for 8:28 AM RESIDENTIAL SUPERVISOR carcinoma of this procedure nasopharynx, NOS are in the results section. ALKALINE PHOSPHATASE Routine 01/07/2023 Adenoid cystic Resul ts for 8:28 AM RESIDENTIAL SUPERVISOR carcinoma of this procedure nasopharynx, NOS are in the results section. ALBUMIN LEVEL Routine 01/07/2023 Adenoid cystic Results for 8:28 AM RESIDENTIAL SUPERVISOR carcinoma of this procedure nasopharynx, NOS are in the results section. CALCIUM LEVEL TOTAL Routine 01/07/2023 Adenoid cystic Result s for 8:28 AM RESIDENTIAL SUPERVISOR carcinoma of this procedure nasopharynx, NOS are in the results section. .GLOMERULAR FILTRATION Routine 01/07/2023 Adenoid cystic Res ults for RATE 8:28 AM RESIDENTIAL SUPERVISOR carcinoma of this procedure nasopharynx, NOS are in the results section. SERUM CREATININE Routine 01/07/2023 Adenoid cystic Results f or 8:28 AM RESIDENTIAL SUPERVISOR carcinoma of this procedure nasopharynx, NOS are in the results section. ELECTROLYTE PANEL Routine 01/07/2023 Adenoid cystic Results for 8:28 AM RESIDENTIAL SUPERVISOR carcinoma of this procedure nasopharynx, NOS are in the results section. BLOOD UREA NITROGEN Routine 01/07/2023 Adenoid cystic Result s for 8:28 AM RESIDENTIAL SUPERVISOR carcinoma of this procedure nasopharynx, NOS are in the results section. GLUCOSE LEVEL Routine 01/07/2023 Adenoid cystic Results for 8:28 AM RESIDENTIAL SUPERVISOR carcinoma of this procedure nasopharynx, NOS are in the results section. PHOSPHORUS LEVEL Routine 01/07/2023 Adenoid cystic Results f or 8:28 AM RESIDENTIAL SUPERVISOR carcinoma of this procedure nasopharynx, NOS are in the results section. MAGNESIUM LEVEL Routine 01/07/2023 Adenoid cystic Results fo r 8:28 AM RESIDENTIAL SUPERVISOR carcinoma of this procedure nasopharynx, NOS are in the results section. COMPLETE BLOOD COUNT W/ Routine 01/07/2023 Adenoid cystic DIFFERENTIAL 8:28 AM RESIDENTIAL SUPERVISOR carcinoma of nasopharynx, NOS COMPREHENSIVE METABOLIC Routine 01/07/2023 Adenoid cystic PANEL 8:28 AM RESIDENTIAL SUPERVISOR carcinoma of nasopharynx, NOS MANUAL DIFFERENTIAL Routine 01/01/2023 Adenoid cystic Result s for 8:26 AM RESIDENTIAL SUPERVISOR carcinoma of this procedure nasopharynx, NOS are in the results section. Results CBC Routine 01/01/2023 Adenoid cystic Results for 8:26 AM RESIDENTIAL SUPERVISOR carcinoma of this procedure nasopharynx, NOS are in the results section. FRACTIONATED BILIRUBIN Routine 01/01/2023 Adenoid cystic Res ults for 8:26 AM RESIDENTIAL SUPERVISOR carcinoma of this procedure nasopharynx, NOS are in the results section. TOTAL PROTEIN Routine 01/01/2023 Adenoid cystic Results for 8:26 AM RESIDENTIAL SUPERVISOR carcinoma of this procedure nasopharynx, NOS are in the results section. ASPARTATE AMINOTRANSFERASE Routine 01/01/2023 Adenoid cystic Results for 8:26 AM RESIDENTIAL SUPERVISOR carcinoma of this procedure nasopharynx, NOS are in the results section. ALANINE AMINOTRANSFERASE Routine 01/01/2023 Adenoid cystic R esults for 8:26 AM RESIDENTIAL SUPERVISOR carcinoma of this procedure nasopharynx, NOS are in the results section. ALKALINE PHOSPHATASE Routine 01/01/2023 Adenoid cystic Resul ts for 8:26 AM RESIDENTIAL SUPERVISOR carcinoma of this procedure nasopharynx, NOS are in the results section. ALBUMIN LEVEL Routine 01/01/2023 Adenoid cystic Results for 8:26 AM RESIDENTIAL SUPERVISOR carcinoma of this procedure nasopharynx, NOS are in the results section. CALCIUM LEVEL TOTAL Routine 01/01/2023 Adenoid cystic Result s for 8:26 AM RESIDENTIAL SUPERVISOR carcinoma of this procedure nasopharynx, NOS are in the results section. .GLOMERULAR FILTRATION Routine 01/01/2023 Adenoid cystic Res ults for RATE 8:26 AM RESIDENTIAL SUPERVISOR carcinoma of this procedure nasopharynx, NOS are in the results section. SERUM CREATININE Routine 01/01/2023 Adenoid cystic Results f or 8:26 AM RESIDENTIAL SUPERVISOR carcinoma of this procedure nasopharynx, NOS are in the results section. ELECTROLYTE PANEL Routine 01/01/2023 Adenoid cystic Results for 8:26 AM RESIDENTIAL SUPERVISOR carcinoma of this procedure nasopharynx, NOS are in the results section. BLOOD UREA NITROGEN Routine 01/01/2023 Adenoid cystic Result s for 8:26 AM RESIDENTIAL SUPERVISOR carcinoma of this procedure nasopharynx, NOS are in the results section. GLUCOSE LEVEL Routine 01/01/2023 Adenoid cystic Results for 8:26 AM RESIDENTIAL SUPERVISOR carcinoma of this procedure nasopharynx, NOS are in the results section. PHOSPHORUS LEVEL Routine 01/01/2023 Adenoid cystic Results f or 8:26 AM RESIDENTIAL SUPERVISOR carcinoma of this procedure nasopharynx, NOS are in the results section. MAGNESIUM LEVEL Routine 01/01/2023 Adenoid cystic Results fo r 8:26 AM RESIDENTIAL SUPERVISOR carcinoma of this procedure nasopharynx, NOS are in the results section. COMPLETE BLOOD COUNT W/ Routine 01/01/2023 Adenoid cystic DIFFERENTIAL 8:26 AM RESIDENTIAL SUPERVISOR carcinoma of nasopharynx, NOS COMPREHENSIVE METABOLIC Routine 01/01/2023 Adenoid cystic PANEL 8:26 AM RESIDENTIAL SUPERVISOR carcinoma of nasopharynx, NOS [place] [employer], Routine 12/29/2022 Sixth (abducent) R esults for INTERMEDIATE - OU - BOTH 10:51 AM RESIDENTIAL SUPERVISOR nerve palsy, lef t this procedure EYES eye are in the results section. OCT, OPTIC NERVE - OU - Routine 12/29/2022 Sixth (abducent) Results for BOTH EYES 10:43 AM RESIDENTIAL SUPERVISOR nerve palsy, left this proce dure eye are in the results section. OCT, RETINA - OU - BOTH Routine 12/29/2022 Sixth (abducent) Results for EYES 10:43 AM RESIDENTIAL SUPERVISOR nerve palsy, left this proce dure eye are in the results section. MANUAL DIFFERENTIAL Routine 12/24/2022 Adenoid cystic Result s for 9:16 AM RESIDENTIAL SUPERVISOR carcinoma of this procedure nasopharynx, NOS are in the results section. Results CBC Routine 12/24/2022 Adenoid cystic Results for 9:16 AM RESIDENTIAL SUPERVISOR carcinoma of this procedure nasopharynx, NOS are in the results section. FRACTIONATED BILIRUBIN Routine 12/24/2022 Adenoid cystic Res ults for 9:16 AM RESIDENTIAL SUPERVISOR carcinoma of this procedure nasopharynx, NOS are in the results section. TOTAL PROTEIN Routine 12/24/2022 Adenoid cystic Results for 9:16 AM RESIDENTIAL SUPERVISOR carcinoma of this procedure nasopharynx, NOS are in the results section. 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 COMPLETE BLOOD COUNT W/ Routine 12/24/2022 Adenoid cystic DIFFERENTIAL 9:16 AM RESIDENTIAL SUPERVISOR carcinoma of nasopharynx, NOS COMPREHENSIVE METABOLIC Routine 12/24/2022 Adenoid cystic PANEL 9:16 AM RESIDENTIAL SUPERVISOR carcinoma of nasopharynx, NOS COVID-19 (SARS-COV-2) Routine 12/23/2022 Suspected COVID-19 Results for PCR-ASYMPTOMATIC MC 12:01 PM RESIDENTIAL SUPERVISOR this pro cedure are in the results section. POC GLUCOSE SCREEN Routine 12/15/2022 Results f or 6:07 PM RESIDENTIAL SUPERVISOR this procedure are in the results section. POC GLUCOSE SCREEN Routine 12/15/2022 Results f or 12:52 PM RESIDENTIAL SUPERVISOR this procedure are in the results section. OCT, OPTIC NERVE - OU - Routine 12/15/2022 Diplopia Resu lts for BOTH EYES 10:37 AM RESIDENTIAL SUPERVISOR this procedure are in the results section. OCT, RETINA - OU - BOTH Routine 12/15/2022 Diplopia Resu lts for EYES 10:37 AM RESIDENTIAL SUPERVISOR this procedure are in the results section. FUNDUS PHOTOS - OU - BOTH Routine 12/15/2022 Diplopia Re sults for EYES 10:37 AM RESIDENTIAL SUPERVISOR this procedure are in the results section. 3D DENTAL IMAGING (ICAT) Routine 12/15/2022 Encounter for Re sults for 8:42 AM RESIDENTIAL SUPERVISOR observation for this procedu re other suspected are in the disease ruled out results section. POC GLUCOSE SCREEN Routine 12/15/2022 Results f or 7:19 AM RESIDENTIAL SUPERVISOR this procedure are in the results section. POC GLUCOSE SCREEN Routine 12/15/2022 Results f or 6:12 AM RESIDENTIAL SUPERVISOR this procedure are in the results section. MANUAL DIFFERENTIAL AM 12/15/2022 Results for 3:44 AM RESIDENTIAL SUPERVISOR this procedure are in the results section. Results CBC AM 12/15/2022 Results for 3:44 AM RESIDENTIAL SUPERVISOR this procedure are in the results section. CALCIUM LEVEL TOTAL AM 12/15/2022 Results for 3:44 AM RESIDENTIAL SUPERVISOR this procedure are in the results section. .GLOMERULAR FILTRATION AM 12/15/2022 Resul ts for RATE 3:44 AM RESIDENTIAL SUPERVISOR this procedure are in the results section. SERUM CREATININE AM 12/15/2022 Results for 3:44 AM RESIDENTIAL SUPERVISOR this procedure are in the results section. ELECTROLYTE PANEL AM 12/15/2022 Results fo r 3:44 AM RESIDENTIAL SUPERVISOR this procedure are in the results section. BLOOD UREA NITROGEN AM 12/15/2022 Results for 3:44 AM RESIDENTIAL SUPERVISOR this procedure are in the results section. GLUCOSE LEVEL AM 12/15/2022 Results for 3:44 AM RESIDENTIAL SUPERVISOR this procedure are in the results section. COMPLETE BLOOD COUNT W/ AM 12/15/2022 DIFFERENTIAL 3:44 AM RESIDENTIAL SUPERVISOR PHOSPHORUS LEVEL AM 12/15/2022 Results for 3:44 AM RESIDENTIAL SUPERVISOR this procedure are in the results section. MAGNESIUM LEVEL AM 12/15/2022 Results for 3:44 AM RESIDENTIAL SUPERVISOR this procedure are in the results section. BASIC METABOLIC PANEL, AM 12/15/2022 CALCIUM TOTAL 3:44 AM RESIDENTIAL SUPERVISOR POC GLUCOSE SCREEN Routine 12/15/2022 Results f or 2:28 AM RESIDENTIAL SUPERVISOR this procedure are in the results section. POC GLUCOSE SCREEN Routine 12/14/2022 Results f or 10:04 PM RESIDENTIAL SUPERVISOR this procedure are in the results section. POC GLUCOSE SCREEN Routine 12/14/2022 Results f or 5:26 PM RESIDENTIAL SUPERVISOR this procedure are in the results section. POC GLUCOSE SCREEN Routine 12/14/2022 Results f or 4:14 PM RESIDENTIAL SUPERVISOR this procedure are in the results section. FL MODIFIED BARIUM SWALLOW Routine 12/14/2022 R esults for W SPEECH 2:37 PM RESIDENTIAL SUPERVISOR this procedure are in the results section. POC GLUCOSE SCREEN Routine 12/14/2022 Results f or 12:08 PM RESIDENTIAL SUPERVISOR this procedure are in the results section. GENERAL LABORATORY ADD ON Routine 12/14/2022 Re sults for TEST 8:03 AM RESIDENTIAL SUPERVISOR this procedure are in the results section. POC GLUCOSE SCREEN Routine 12/14/2022 Results f or 7:25 AM RESIDENTIAL SUPERVISOR this procedure are in the results section. POC GLUCOSE SCREEN Routine 12/14/2022 Results f or 5:55 AM RESIDENTIAL SUPERVISOR this procedure are in the results section. FRACTIONATED BILIRUBIN AM 12/14/2022 Resul ts for 4:46 AM RESIDENTIAL SUPERVISOR this procedure are in the results section. TOTAL PROTEIN AM 12/14/2022 Results for 4:46 AM RESIDENTIAL SUPERVISOR this procedure are in the results section. ASPARTATE AMINOTRANSFERASE AM 12/14/2022 R esults for 4:46 AM RESIDENTIAL SUPERVISOR this procedure are in the results section. ALANINE AMINOTRANSFERASE AM 12/14/2022 Res ults for 4:46 AM RESIDENTIAL SUPERVISOR this procedure are in the results section. ALKALINE PHOSPHATASE AM 12/14/2022 Results for 4:46 AM RESIDENTIAL SUPERVISOR this procedure are in the results section. ALBUMIN LEVEL AM 12/14/2022 Results for 4:46 AM RESIDENTIAL SUPERVISOR this procedure are in the results section. MANUAL DIFFERENTIAL AM 12/14/2022 Results for 4:46 AM RESIDENTIAL SUPERVISOR this procedure are in the results section. Results CBC AM 12/14/2022 Results for 4:46 AM RESIDENTIAL SUPERVISOR this procedure are in the results section. CALCIUM LEVEL TOTAL AM 12/14/2022 Results for 4:46 AM RESIDENTIAL SUPERVISOR this procedure are in the results section. .GLOMERULAR FILTRATION AM 12/14/2022 Resul ts for RATE 4:46 AM RESIDENTIAL SUPERVISOR this procedure are in the results section. SERUM CREATININE AM 12/14/2022 Results for 4:46 AM RESIDENTIAL SUPERVISOR this procedure are in the results section. ELECTROLYTE PANEL AM 12/14/2022 Results fo r 4:46 AM RESIDENTIAL SUPERVISOR this procedure are in the results section. BLOOD UREA NITROGEN AM 12/14/2022 Results for 4:46 AM RESIDENTIAL SUPERVISOR this procedure are in the results section. GLUCOSE LEVEL AM 12/14/2022 Results for 4:46 AM RESIDENTIAL SUPERVISOR this procedure are in the results section. COMPLETE BLOOD COUNT W/ AM 12/14/2022 DIFFERENTIAL 4:46 AM RESIDENTIAL SUPERVISOR PHOSPHORUS LEVEL AM 12/14/2022 Results for 4:46 AM RESIDENTIAL SUPERVISOR this procedure are in the results section. MAGNESIUM LEVEL AM 12/14/2022 Results for 4:46 AM RESIDENTIAL SUPERVISOR this procedure are in the results section. BASIC METABOLIC PANEL, AM 12/14/2022 CALCIUM TOTAL 4:46 AM RESIDENTIAL SUPERVISOR POC GLUCOSE SCREEN Routine 12/14/2022 Results f or 1:36 AM RESIDENTIAL SUPERVISOR this procedure are in the results section. POC GLUCOSE SCREEN Routine 12/13/2022 Results f or 9:56 PM RESIDENTIAL SUPERVISOR this procedure are in the results section. POC GLUCOSE SCREEN Routine 12/13/2022 Results f or 6:31 PM RESIDENTIAL SUPERVISOR this procedure are in the results section. POC GLUCOSE SCREEN Routine 12/13/2022 Results f or 1:24 PM RESIDENTIAL SUPERVISOR this procedure are in the results section. POC GLUCOSE SCREEN Routine 12/13/2022 Results f or 8:02 AM RESIDENTIAL SUPERVISOR this procedure are in the results section. POC GLUCOSE SCREEN Routine 12/13/2022 Results f or 5:58 AM RESIDENTIAL SUPERVISOR this procedure are in the results section. POC GLUCOSE SCREEN Routine 12/13/2022 Results f or 3:24 AM RESIDENTIAL SUPERVISOR this procedure are in the results section. MANUAL DIFFERENTIAL AM 12/13/2022 Results for 3:12 AM RESIDENTIAL SUPERVISOR this procedure are in the results section. Results CBC AM 12/13/2022 Results for 3:12 AM RESIDENTIAL SUPERVISOR this procedure are in the results section. CALCIUM LEVEL TOTAL AM 12/13/2022 Results for 3:12 AM RESIDENTIAL SUPERVISOR this procedure are in the results section. .GLOMERULAR FILTRATION AM 12/13/2022 Resul ts for RATE 3:12 AM RESIDENTIAL SUPERVISOR this procedure are in the results section. SERUM CREATININE AM 12/13/2022 Results for 3:12 AM RESIDENTIAL SUPERVISOR this procedure are in the results section. ELECTROLYTE PANEL AM 12/13/2022 Results fo r 3:12 AM RESIDENTIAL SUPERVISOR this procedure are in the results section. BLOOD UREA NITROGEN AM 12/13/2022 Results for 3:12 AM RESIDENTIAL SUPERVISOR this procedure are in the results section. GLUCOSE LEVEL AM 12/13/2022 Results for 3:12 AM RESIDENTIAL SUPERVISOR this procedure are in the results section. COMPLETE BLOOD COUNT W/ AM 12/13/2022 DIFFERENTIAL 3:12 AM RESIDENTIAL SUPERVISOR PHOSPHORUS LEVEL AM 12/13/2022 Results for 3:12 AM RESIDENTIAL SUPERVISOR this procedure are in the results section. MAGNESIUM LEVEL AM 12/13/2022 Results for 3:12 AM RESIDENTIAL SUPERVISOR this procedure are in the results section. BASIC METABOLIC PANEL, AM 12/13/2022 CALCIUM TOTAL 3:12 AM RESIDENTIAL SUPERVISOR POC GLUCOSE SCREEN Routine 12/12/2022 Results f or 9:43 PM RESIDENTIAL SUPERVISOR this procedure are in the results section. POC GLUCOSE SCREEN Routine 12/12/2022 Results f or 6:16 PM RESIDENTIAL SUPERVISOR this procedure are in the results section. POC GLUCOSE SCREEN Routine 12/12/2022 Results f or 12:52 PM RESIDENTIAL SUPERVISOR this procedure are in the results section. POC GLUCOSE SCREEN Routine 12/12/2022 Results f or 7:47 AM RESIDENTIAL SUPERVISOR this procedure are in the results section. POC GLUCOSE SCREEN Routine 12/12/2022 Results f or 5:52 AM RESIDENTIAL SUPERVISOR this procedure are in the results section. MANUAL DIFFERENTIAL AM 12/12/2022 Results for 4:30 AM RESIDENTIAL SUPERVISOR this procedure are in the results section. Results CBC AM 12/12/2022 Results for 4:30 AM RESIDENTIAL SUPERVISOR this procedure are in the results section. CALCIUM LEVEL TOTAL AM 12/12/2022 Results for 4:30 AM RESIDENTIAL SUPERVISOR this procedure are in the results section. .GLOMERULAR FILTRATION AM 12/12/2022 Resul ts for RATE 4:30 AM RESIDENTIAL SUPERVISOR this procedure are in the results section. SERUM CREATININE AM 12/12/2022 Results for 4:30 AM RESIDENTIAL SUPERVISOR this procedure are in the results section. ELECTROLYTE PANEL AM 12/12/2022 Results fo r 4:30 AM RESIDENTIAL SUPERVISOR this procedure are in the results section. BLOOD UREA NITROGEN AM 12/12/2022 Results for 4:30 AM RESIDENTIAL SUPERVISOR this procedure are in the results section. GLUCOSE LEVEL AM 12/12/2022 Results for 4:30 AM RESIDENTIAL SUPERVISOR this procedure are in the results section. COMPLETE BLOOD COUNT W/ AM 12/12/2022 DIFFERENTIAL 4:30 AM RESIDENTIAL SUPERVISOR PHOSPHORUS LEVEL AM 12/12/2022 Results for 4:30 AM RESIDENTIAL SUPERVISOR this procedure are in the results section. MAGNESIUM LEVEL AM 12/12/2022 Results for 4:30 AM RESIDENTIAL SUPERVISOR this procedure are in the results section. BASIC METABOLIC PANEL, AM 12/12/2022 CALCIUM TOTAL 4:30 AM RESIDENTIAL SUPERVISOR POC GLUCOSE SCREEN Routine 12/12/2022 Results f or 2:06 AM RESIDENTIAL SUPERVISOR this procedure are in the results section. POC GLUCOSE SCREEN Routine 12/11/2022 Results f or 10:01 PM RESIDENTIAL SUPERVISOR this procedure are in the results section. LACTIC ACID, VENOUS Timed Study 12/11/2022 Results for 9:50 PM RESIDENTIAL SUPERVISOR this procedure are in the results section. LIPASE LEVEL STAT 12/11/2022 Results for 6:21 PM RESIDENTIAL SUPERVISOR this procedure are in the results section. VENOUS BLOOD GAS STAT 12/11/2022 Results for 6:21 PM RESIDENTIAL SUPERVISOR this procedure are in the results section. POC GLUCOSE SCREEN Routine 12/11/2022 Results f or 6:10 PM RESIDENTIAL SUPERVISOR this procedure are in the results section. GENERAL LABORATORY ADD ON Routine 12/11/2022 Re sults for TEST 5:39 PM RESIDENTIAL SUPERVISOR this procedure are in the results section. KETONE BODIES QUALITATIVE STAT 12/11/2022 Re sults for 5:19 PM RESIDENTIAL SUPERVISOR this procedure are in the results section. POC GLUCOSE SCREEN Routine 12/11/2022 Results f or 4:51 PM RESIDENTIAL SUPERVISOR this procedure are in the results section. LIPASE LEVEL STAT 12/11/2022 Results for 4:33 PM RESIDENTIAL SUPERVISOR this procedure are in the results section. ELECTROLYTE PANEL STAT 12/11/2022 Results fo r 4:33 PM RESIDENTIAL SUPERVISOR this procedure are in the results section. LACTIC ACID, VENOUS Timed Study 12/11/2022 Results for 4:33 PM RESIDENTIAL SUPERVISOR this procedure are in the results section. POC GLUCOSE SCREEN Routine 12/11/2022 Results f or 3:34 PM RESIDENTIAL SUPERVISOR this procedure are in the results section. POC CRITICAL Routine 12/11/2022 Results for 3:34 PM RESIDENTIAL SUPERVISOR this procedure are in the results section. POC GLUCOSE SCREEN Routine 12/11/2022 Results f or 2:33 PM RESIDENTIAL SUPERVISOR this procedure are in the results section. POC CRITICAL Routine 12/11/2022 Results for 2:33 PM RESIDENTIAL SUPERVISOR this procedure are in the results section. POC GLUCOSE SCREEN Routine 12/11/2022 Results f or 12:35 PM RESIDENTIAL SUPERVISOR this procedure are in the results section. POC GLUCOSE SCREEN Routine 12/11/2022 Results f or 8:14 AM RESIDENTIAL SUPERVISOR this procedure are in the results section. LACTIC ACID, VENOUS Routine 12/11/2022 Results for 4:37 AM RESIDENTIAL SUPERVISOR this procedure are in the results section. MANUAL DIFFERENTIAL AM 12/11/2022 Results for 4:30 AM RESIDENTIAL SUPERVISOR this procedure are in the results section. Results CBC AM 12/11/2022 Results for 4:30 AM RESIDENTIAL SUPERVISOR this procedure are in the results section. CALCIUM LEVEL TOTAL AM 12/11/2022 Results for 4:30 AM RESIDENTIAL SUPERVISOR this procedure are in the results section. .GLOMERULAR FILTRATION AM 12/11/2022 Resul ts for RATE 4:30 AM RESIDENTIAL SUPERVISOR this procedure are in the results section. SERUM CREATININE AM 12/11/2022 Results for 4:30 AM RESIDENTIAL SUPERVISOR this procedure are in the results section. ELECTROLYTE PANEL AM 12/11/2022 Results fo r 4:30 AM RESIDENTIAL SUPERVISOR this procedure are in the results section. BLOOD UREA NITROGEN AM 12/11/2022 Results for 4:30 AM RESIDENTIAL SUPERVISOR this procedure are in the results section. GLUCOSE LEVEL AM 12/11/2022 Results for 4:30 AM RESIDENTIAL SUPERVISOR this procedure are in the results section. COMPLETE BLOOD COUNT W/ AM 12/11/2022 DIFFERENTIAL 4:30 AM RESIDENTIAL SUPERVISOR PHOSPHORUS LEVEL AM 12/11/2022 Results for 4:30 AM RESIDENTIAL SUPERVISOR this procedure are in the results section. MAGNESIUM LEVEL AM 12/11/2022 Results for 4:30 AM RESIDENTIAL SUPERVISOR this procedure are in the results section. BASIC METABOLIC PANEL, AM 12/11/2022 CALCIUM TOTAL 4:30 AM RESIDENTIAL SUPERVISOR POC GLUCOSE SCREEN Routine 12/11/2022 Results f or 1:20 AM RESIDENTIAL SUPERVISOR this procedure are in the results section. POC GLUCOSE SCREEN Routine 12/10/2022 Results f or 10:00 PM RESIDENTIAL SUPERVISOR this procedure are in the results section. POC GLUCOSE SCREEN Routine 12/10/2022 Results f or 6:29 PM RESIDENTIAL SUPERVISOR this procedure are in the results section. POC GLUCOSE SCREEN Routine 12/10/2022 Results f or 5:20 PM RESIDENTIAL SUPERVISOR this procedure are in the results section. CT HEAD WO CONTRAST STAT 12/10/2022 Results for 3:21 PM RESIDENTIAL SUPERVISOR this procedure are in the results section. POC GLUCOSE SCREEN Routine 12/10/2022 Results f or 1:45 PM RESIDENTIAL SUPERVISOR this procedure are in the results section. POC GLUCOSE SCREEN Routine 12/10/2022 Results f or 11:35 AM RESIDENTIAL SUPERVISOR this procedure are in the results section. POC GLUCOSE SCREEN Routine 12/10/2022 Results f or 7:30 AM RESIDENTIAL SUPERVISOR this procedure are in the results section. URINALYSIS WITH Routine 12/10/2022 Results for MICROSCOPIC IF INDICATED 6:13 AM RESIDENTIAL SUPERVISOR thi s procedure are in the results section. URINE CULTURE Routine 12/10/2022 Results for 6:13 AM RESIDENTIAL SUPERVISOR this procedure are in the results section. MANUAL DIFFERENTIAL STAT 12/10/2022 Results for 5:13 AM RESIDENTIAL SUPERVISOR this procedure are in the results section. Results CBC STAT 12/10/2022 Results for 5:13 AM RESIDENTIAL SUPERVISOR this procedure are in the results section. CALCIUM LEVEL TOTAL AM 12/10/2022 Results for 5:13 AM RESIDENTIAL SUPERVISOR this procedure are in the results section. .GLOMERULAR FILTRATION AM 12/10/2022 Resul ts for RATE 5:13 AM RESIDENTIAL SUPERVISOR this procedure are in the results section. SERUM CREATININE AM 12/10/2022 Results for 5:13 AM RESIDENTIAL SUPERVISOR this procedure are in the results section. ELECTROLYTE PANEL AM 12/10/2022 Results fo r 5:13 AM RESIDENTIAL SUPERVISOR this procedure are in the results section. BLOOD UREA NITROGEN AM 12/10/2022 Results for 5:13 AM RESIDENTIAL SUPERVISOR this procedure are in the results section. GLUCOSE LEVEL AM 12/10/2022 Results for 5:13 AM RESIDENTIAL SUPERVISOR this procedure are in the results section. HEMOGLOBIN A1C Routine 12/10/2022 Results for 5:13 AM RESIDENTIAL SUPERVISOR this procedure are in the results section. COMPLETE BLOOD COUNT W/ AM 12/10/2022 DIFFERENTIAL 5:13 AM RESIDENTIAL SUPERVISOR PHOSPHORUS LEVEL AM 12/10/2022 Results for 5:13 AM RESIDENTIAL SUPERVISOR this procedure are in the results section. MAGNESIUM LEVEL AM 12/10/2022 Results for 5:13 AM RESIDENTIAL SUPERVISOR this procedure are in the results section. BASIC METABOLIC PANEL, AM 12/10/2022 CALCIUM TOTAL 5:13 AM RESIDENTIAL SUPERVISOR POC GLUCOSE SCREEN Routine 12/10/2022 Results f or 1:38 AM RESIDENTIAL SUPERVISOR this procedure are in the results section. POC GLUCOSE SCREEN Routine 12/09/2022 Results f or 11:18 PM RESIDENTIAL SUPERVISOR this procedure are in the results section. POC VENOUS BLOOD GAS + Routine 12/09/2022 Resul ts for LACTATE 9:36 PM RESIDENTIAL SUPERVISOR this procedure are in the results section. FRACTIONATED BILIRUBIN Routine 12/09/2022 Resul ts for 6:01 PM RESIDENTIAL SUPERVISOR this procedure are in the results section. TOTAL PROTEIN Routine 12/09/2022 Results for 6:01 PM RESIDENTIAL SUPERVISOR this procedure are in the results section. ASPARTATE AMINOTRANSFERASE Routine 12/09/2022 R esults for 6:01 PM RESIDENTIAL SUPERVISOR this procedure are in the results section. ALANINE AMINOTRANSFERASE Routine 12/09/2022 Res ults for 6:01 PM RESIDENTIAL SUPERVISOR this procedure are in the results section. ALKALINE PHOSPHATASE Routine 12/09/2022 Results for 6:01 PM RESIDENTIAL SUPERVISOR this procedure are in the results section. ALBUMIN LEVEL Routine 12/09/2022 Results for 6:01 PM RESIDENTIAL SUPERVISOR this procedure are in the results section. CALCIUM LEVEL TOTAL Routine 12/09/2022 Results for 6:01 PM RESIDENTIAL SUPERVISOR this procedure are in the results section. .GLOMERULAR FILTRATION Routine 12/09/2022 Resul ts for RATE 6:01 PM RESIDENTIAL SUPERVISOR this procedure are in the results section. SERUM CREATININE Routine 12/09/2022 Results for 6:01 PM RESIDENTIAL SUPERVISOR this procedure are in the results section. ELECTROLYTE PANEL Routine 12/09/2022 Results fo r 6:01 PM RESIDENTIAL SUPERVISOR this procedure are in the results section. BLOOD UREA NITROGEN Routine 12/09/2022 Results for 6:01 PM RESIDENTIAL SUPERVISOR this procedure are in the results section. GLUCOSE LEVEL Routine 12/09/2022 Results for 6:01 PM RESIDENTIAL SUPERVISOR this procedure are in the results section. MANUAL DIFFERENTIAL STAT 12/09/2022 Results for 6:01 PM RESIDENTIAL SUPERVISOR this procedure are in the results section. Results CBC STAT 12/09/2022 Results for 6:01 PM RESIDENTIAL SUPERVISOR this procedure are in the results section. LACTATE DEHYDROGENASE Routine 12/09/2022 Result s for 6:01 PM RESIDENTIAL SUPERVISOR this procedure are in the results section. APTT Routine 12/09/2022 Results for 6:01 PM RESIDENTIAL SUPERVISOR this procedure are in the results section. PROTHROMBIN TIME Routine 12/09/2022 Results for 6:01 PM RESIDENTIAL SUPERVISOR this procedure are in the results section. PHOSPHORUS LEVEL Routine 12/09/2022 Results for 6:01 PM RESIDENTIAL SUPERVISOR this procedure are in the results section. MAGNESIUM LEVEL Routine 12/09/2022 Results for 6:01 PM RESIDENTIAL SUPERVISOR this procedure are in the results section. COMPREHENSIVE METABOLIC Routine 12/09/2022 PANEL 6:01 PM RESIDENTIAL SUPERVISOR COMPLETE BLOOD COUNT W/ Routine 12/09/2022 DIFFERENTIAL 6:01 PM RESIDENTIAL SUPERVISOR AMMONIA LEVEL Routine 12/09/2022 Results for 6:01 PM RESIDENTIAL SUPERVISOR this procedure are in the results section. COVID-19 (SARS-COV-2) Routine 12/09/2022 Result s for ASYMPTOMATIC-LT 6:01 PM RESIDENTIAL SUPERVISOR this procedu re are in the results section. HP MOLECULAR BLOOD Routine 12/04/2022 Results f or COLLECTION 10:56 AM RESIDENTIAL SUPERVISOR this procedure are in the results section. MISSY GRIFFIN SOLID TUMOR GENOMIC Routine 12/04/2022 ASSAY FUSIONS 2018 10:56 AM RESIDENTIAL SUPERVISOR INTERPRETATION AND REPORT HP MD MDA CHRISTINE MUTATION Routine 12/04/2022 ANALYSIS PRECISION PANEL 10:56 AM RESIDENTIAL SUPERVISOR REPORT MRI SKULL BASE WITH AND Routine 11/30/2022 Adenocarcinoma of Results for WITHOUT CONTRAST 11:12 AM RESIDENTIAL SUPERVISOR nasopharynx this proced ure are in the results section. PETCT CONTRAST ENHANCED Routine 11/27/2022 Adenocarcinoma of Results for INITIAL TREATMENT STRATEGY 3:57 PM RESIDENTIAL SUPERVISOR nasop harynx this procedure Malignant neoplasm are in th e of overlapping results sites of section. nasopharynx POC GLUCOSE SCREEN Routine 11/27/2022 Results f or 1:06 PM RESIDENTIAL SUPERVISOR this procedure are in the results section. POC GLUCOSE SCREEN Routine 11/27/2022 Results f or 12:29 PM RESIDENTIAL SUPERVISOR this procedure are in the results section. FRACTIONATED BILIRUBIN Routine 11/26/2022 Adenocarcinoma of Results for 1:07 PM RESIDENTIAL SUPERVISOR nasopharynx this procedure are in the results section. TOTAL PROTEIN Routine 11/26/2022 Adenocarcinoma of Results f or 1:07 PM RESIDENTIAL SUPERVISOR nasopharynx this procedure are in the results section. ASPARTATE AMINOTRANSFERASE Routine 11/26/2022 Adenocarcinoma of Results for 1:07 PM RESIDENTIAL SUPERVISOR nasopharynx this procedure are in the results section. ALANINE AMINOTRANSFERASE Routine 11/26/2022 Adenocarcinoma o f Results for 1:07 PM RESIDENTIAL SUPERVISOR nasopharynx this procedure are in the results section. ALKALINE PHOSPHATASE Routine 11/26/2022 Adenocarcinoma of Re sults for 1:07 PM RESIDENTIAL SUPERVISOR nasopharynx this procedure are in the results section. ALBUMIN LEVEL Routine 11/26/2022 Adenocarcinoma of Results f or 1:07 PM RESIDENTIAL SUPERVISOR nasopharynx this procedure are in the results section. CALCIUM LEVEL TOTAL Routine 11/26/2022 Adenocarcinoma of Res ults for 1:07 PM RESIDENTIAL SUPERVISOR nasopharynx this procedure are in the results section. 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 SERUM CREATININE Routine 11/26/2022 Adenocarcinoma of Result s for 1:07 PM RESIDENTIAL SUPERVISOR nasopharynx this procedure are in the results section. ELECTROLYTE PANEL Routine 11/26/2022 Adenocarcinoma of Resul ts for 1:07 PM RESIDENTIAL SUPERVISOR nasopharynx this procedure are in the results section. BLOOD UREA NITROGEN Routine 11/26/2022 Adenocarcinoma of Res ults for 1:07 PM RESIDENTIAL SUPERVISOR nasopharynx this procedure are in the results section. GLUCOSE LEVEL Routine 11/26/2022 Adenocarcinoma of Results f or 1:07 PM RESIDENTIAL SUPERVISOR nasopharynx this procedure are in the results section. MANUAL DIFFERENTIAL Routine 11/26/2022 Adenocarcinoma of Res ults for 1:07 PM RESIDENTIAL SUPERVISOR nasopharynx this procedure are in the results section. Results CBC Routine 11/26/2022 Adenocarcinoma of Results fo r 1:07 PM RESIDENTIAL SUPERVISOR nasopharynx this procedure are in the results section. PROTHROMBIN TIME Routine 11/26/2022 Adenocarcinoma of Result s for 1:07 PM RESIDENTIAL SUPERVISOR nasopharynx this procedure are in the results section. APTT Routine 11/26/2022 Adenocarcinoma of Results fo r 1:07 PM RESIDENTIAL SUPERVISOR nasopharynx this procedure are in the results section. THYROID STIMULATING Routine 11/26/2022 Adenocarcinoma of Res ults for HORMONE 1:07 PM RESIDENTIAL SUPERVISOR nasopharynx this procedure are in the results section. VITAMIN D 25 HYDROXY LEVEL Routine 11/26/2022 Adenocarcinoma of Results for 1:07 PM RESIDENTIAL SUPERVISOR nasopharynx this procedure are in the results section. URIC ACID Routine 11/26/2022 Adenocarcinoma of Results fo r 1:07 PM RESIDENTIAL SUPERVISOR nasopharynx this procedure are in the results section. PHOSPHORUS LEVEL Routine 11/26/2022 Adenocarcinoma of Result s for 1:07 PM RESIDENTIAL SUPERVISOR nasopharynx this procedure are in the results section. MAGNESIUM LEVEL Routine 11/26/2022 Adenocarcinoma of Results for 1:07 PM RESIDENTIAL SUPERVISOR nasopharynx this procedure are in the results section. LACTATE DEHYDROGENASE Routine 11/26/2022 Adenocarcinoma of R esults for 1:07 PM RESIDENTIAL SUPERVISOR nasopharynx this procedure are in the results section. FREE THYROXINE Routine 11/26/2022 Adenocarcinoma of Results for 1:07 PM RESIDENTIAL SUPERVISOR nasopharynx this procedure are in the results section. COMPREHENSIVE METABOLIC Routine 11/26/2022 Adenocarcinoma of PANEL 1:07 PM RESIDENTIAL SUPERVISOR nasopharynx COMPLETE BLOOD COUNT W/ Routine 11/26/2022 Adenocarcinoma of DIFFERENTIAL 1:07 PM RESIDENTIAL SUPERVISOR nasopharynx NGS BLOOD CONTROL Routine 11/26/2022 Adenocarcinoma of Re sults for 1:07 PM RESIDENTIAL SUPERVISOR nasopharynx this procedure are in the results section. AP IHC HER2/ARCENIO MATERIAL Routine 11/26/2022 Adenocarcinoma o f REQUEST 12:43 PM RESIDENTIAL SUPERVISOR nasopharynx AP IHC PD-L1 MATERIAL Routine 11/26/2022 Adenocarcinoma of REQUEST 12:43 PM RESIDENTIAL SUPERVISOR nasopharynx ANA CRISTINA GRIFFIN PTEN MUTATION Routine 11/26/2022 Adenocarcinoma of Res ults for MATERIAL REQUEST 12:43 PM RESIDENTIAL SUPERVISOR nasopharynx this proced ure are in the results section. ANA CRISTINA GRIFFIN MTOR MATERIAL Routine 11/26/2022 Adenocarcinoma of Res ults for REQUEST 12:43 PM RESIDENTIAL SUPERVISOR nasopharynx this procedure are in the results section. ANA CRISTINA GRIFFIN ERBB2 MUTATION Routine 11/26/2022 Adenocarcinoma of Re sults for ANALAYSIS MATERIAL REQUEST 12:43 PM RESIDENTIAL SUPERVISOR nasopharynx t his procedure are in the results section. ANA CRISTINA GRIFFIN EGFR MUTATION Routine 11/26/2022 Adenocarcinoma of Res ults for MATERIAL REQUEST 12:43 PM RESIDENTIAL SUPERVISOR nasopharynx this proced ure are in the results section. ANA CRISTINA GRIFFIN ALK MUTATION Routine 11/26/2022 Adenocarcinoma of Resu lts for ANALAYSIS MATERIAL REQUEST 12:43 PM RESIDENTIAL SUPERVISOR nasopharynx t his procedure are in the results section. ANA CRISTINA GRIFFIN NTRK3 FUSION Routine 11/26/2022 Adenocarcinoma of Resu lts for ANALYSIS MATERIAL REQUEST 12:43 PM RESIDENTIAL SUPERVISOR nasopharynx th is procedure are in the results section. ANA CRISTINA GRIFFIN NTRK2 FUSION Routine 11/26/2022 Adenocarcinoma of Resu lts for ANALYSIS MATERIAL REQUEST 12:43 PM RESIDENTIAL SUPERVISOR nasopharynx th is procedure are in the results section. ANA CRISTINA GRIFFIN NTRK1 FUSION Routine 11/26/2022 Adenocarcinoma of Resu lts for ANALYSIS MATERIAL REQUEST 12:43 PM RESIDENTIAL SUPERVISOR nasopharynx th is procedure are in the results section. MANUAL DIFFERENTIAL Routine 11/17/2022 Adenocarcinoma of Res ults for 12:11 PM RESIDENTIAL SUPERVISOR nasopharynx this procedure are in the results section. Results CBC Routine 11/17/2022 Adenocarcinoma of Results fo r 12:11 PM RESIDENTIAL SUPERVISOR nasopharynx this procedure are in the results section. FRACTIONATED BILIRUBIN Routine 11/17/2022 Adenocarcinoma of Results for 12:11 PM RESIDENTIAL SUPERVISOR nasopharynx this procedure are in the results section. TOTAL PROTEIN Routine 11/17/2022 Adenocarcinoma of Results f or 12:11 PM RESIDENTIAL SUPERVISOR nasopharynx this procedure are in the results section. ASPARTATE AMINOTRANSFERASE Routine 11/17/2022 Adenocarcinoma of Results for 12:11 PM RESIDENTIAL SUPERVISOR nasopharynx this procedure are in the results section. ALANINE AMINOTRANSFERASE Routine 11/17/2022 Adenocarcinoma o f Results for 12:11 PM RESIDENTIAL SUPERVISOR nasopharynx this procedure are in the results section. ALKALINE PHOSPHATASE Routine 11/17/2022 Adenocarcinoma of Re sults for 12:11 PM RESIDENTIAL SUPERVISOR nasopharynx this procedure are in the results section. ALBUMIN LEVEL Routine 11/17/2022 Adenocarcinoma of Results f or 12:11 PM RESIDENTIAL SUPERVISOR nasopharynx this procedure are in the results section. CALCIUM LEVEL TOTAL Routine 11/17/2022 Adenocarcinoma of Res ults for 12:11 PM RESIDENTIAL SUPERVISOR nasopharynx this procedure are in the results section. .GLOMERULAR FILTRATION Routine 11/17/2022 Adenocarcinoma of Results for RATE 12:11 PM RESIDENTIAL SUPERVISOR nasopharynx this procedure are in the results section. SERUM CREATININE Routine 11/17/2022 Adenocarcinoma of Result s for 12:11 PM RESIDENTIAL SUPERVISOR nasopharynx this procedure are in the results section. ELECTROLYTE PANEL Routine 11/17/2022 Adenocarcinoma of Resul ts for 12:11 PM RESIDENTIAL SUPERVISOR nasopharynx this procedure are in the results section. BLOOD UREA NITROGEN Routine 11/17/2022 Adenocarcinoma of Res ults for 12:11 PM RESIDENTIAL SUPERVISOR nasopharynx this procedure are in the results section. GLUCOSE LEVEL Routine 11/17/2022 Adenocarcinoma of Results f or 12:11 PM RESIDENTIAL SUPERVISOR nasopharynx this procedure are in the results section. PROLACTIN Routine 11/17/2022 Adenocarcinoma of Results fo r 12:11 PM RESIDENTIAL SUPERVISOR nasopharynx this procedure are in the results section. INSULIN LIKE GROWTH FACTOR Routine 11/17/2022 Adenocarcinoma of Results for 1 12:11 PM RESIDENTIAL SUPERVISOR nasopharynx this procedure are in the results section. TOTAL T3 Routine 11/17/2022 Adenocarcinoma of Results fo r 12:11 PM RESIDENTIAL SUPERVISOR nasopharynx this procedure are in the results section. FREE THYROXINE Routine 11/17/2022 Adenocarcinoma of Results for 12:11 PM RESIDENTIAL SUPERVISOR nasopharynx this procedure are in the results section. THYROID STIMULATING Routine 11/17/2022 Adenocarcinoma of Res ults for HORMONE 12:11 PM RESIDENTIAL SUPERVISOR nasopharynx this procedure are in the results section. LUTEINIZING HORMONE Routine 11/17/2022 Adenocarcinoma of Res ults for 12:11 PM RESIDENTIAL SUPERVISOR nasopharynx this procedure are in the results section. FOLLICLE STIMULATING Routine 11/17/2022 Adenocarcinoma of Re sults for HORMONE LEVEL 12:11 PM RESIDENTIAL SUPERVISOR nasopharynx this procedure are in the results section. TESTOSTERONE LEVEL Routine 11/17/2022 Adenocarcinoma of Resu lts for 12:11 PM RESIDENTIAL SUPERVISOR nasopharynx this procedure are in the results section. ESTRADIOL LEVEL Routine 11/17/2022 Adenocarcinoma of Results for 12:11 PM RESIDENTIAL SUPERVISOR nasopharynx this procedure are in the results section. ADRENOCORTICOTROPIC Routine 11/17/2022 Adenocarcinoma of Res ults for HORMONE 12:11 PM RESIDENTIAL SUPERVISOR nasopharynx this procedure are in the results section. CORTISOL Routine 11/17/2022 Adenocarcinoma of Results fo r 12:11 PM RESIDENTIAL SUPERVISOR nasopharynx this procedure are in the results section. PROTHROMBIN TIME Routine 11/17/2022 Adenocarcinoma of Result s for 12:11 PM RESIDENTIAL SUPERVISOR nasopharynx this procedure are in the results section. APTT Routine 11/17/2022 Adenocarcinoma of Results fo r 12:11 PM RESIDENTIAL SUPERVISOR nasopharynx this procedure are in the results section. COMPLETE BLOOD COUNT W/ Routine 11/17/2022 Adenocarcinoma of DIFFERENTIAL 12:11 PM RESIDENTIAL SUPERVISOR nasopharynx COMPREHENSIVE METABOLIC Routine 11/17/2022 Adenocarcinoma of PANEL 12:11 PM RESIDENTIAL SUPERVISOR nasopharynx HEPATITIS C VIRUS ANTIBODY Routine 11/17/2022 Adenocarcinoma of Results for 12:11 PM RESIDENTIAL SUPERVISOR nasopharynx this procedure are in the results section. PATHOLOGY OUTSIDE Routine 10/16/2022 Results fo r INTERPRETATION this procedur e are in the results section. after 03/19/2022 Results (ABNORMAL) .Serum Creatinine (03/11/2023 11:15 AM CDT)Only the most recent of43 resultswithin the time period is included. athologist Signature Creatinine 1.11 (H) 0.51 - 0.95 [place] mg/dL Comment: Testing performed at [facility], [address] [place] [id number] Specimen Anatomical Collection Method Collection Time Receive d Time (Source) Location / / Volume Laterality Blood 03/11/2023 11:15 03/11/2023 AM CDT 11:16 AM CDT Narrative [place] - 03/11/2023 11:40 AM CDT Follow up at 1120, lab prior and infusio n after Lorena Hdez EXECUTIVE CHEF LAB BLOOD ORDERABLES Performing Organization Address City/State/ZIP Code Phon e Number [facility] [place], [place] [id number] [place] [address] (ABNORMAL) .CBC (03/11/2023 11:15 AM CDT)Only the most recent of43 resultswithin the time period is included. athologist Signature WBC 6.0 4.0 - 11.0 [place] K/uL Comment: All components of the CBC perfo rmed at [facility], [address] [place] [address], [place] [address] RBC 4.12 4.00 - 5.50 M/uL [place] Comment: All components of the CBC perfo rmed at [facility], [address] [place] [address], [place] [address] Hgb 13.3 12.0 - 16.0 gm/dL [place] Comment: As part of CBC or as an individ ual orderable testing performed at [facility], [address] [place] [address], [place] [address] Hct 39.6 37.0 - 47.0 % [place] Comment: As part of CBC testing performe d at [facility], [address] [place] [address], [place] [address] MCV 96 82 - 98 fL [place] Comment: As part of CBC testing performe d at [facility], [address] [place] [address], [place] [address] MCH 32.3 (H) 27.0 - 31.0 pg [place] Comment: As part of CBC testing performe d at [facility], [address] [place] [address], [place] [address] MCHC 33.6 31.0 - 36.0 gm/dL [place] Comment: As part of CBC testing performe d at [facility], [address] [place] [address], [place] [address] RDW-SD 52.0 (H) 35.1 - 46.3 fL [place] Comment: As part of CBC testing performe d at [facility], [address] [place] [address], [place] [address] RDW-CV 14.4 12.0 - 15.5 % [place] Comment: As part of CBC testing performe d at [facility], [address] [place] [address], [place] [address] Platelet count 159 140 - 440 K/uL [facility] CIT [facility] Comment: As part of CBC or an individual orderable testing performed at [facility], [address] [place] [address] MPV 10.3 4.0 - 10.4 fL [place] Comment: As part of CBC testing performe d at [facility], [address] [place] [address] Specimen Anatomical Collection Method Collection Time Receive d Time (Source) Location / / Volume Laterality Blood 03/11/2023 11:15 03/11/2023 AM CDT 11:16 AM CDT Narrative [place] - 03/11/2023 11:19 AM CDT Follow up at 1120, lab prior and infusio n after Lorena Hdez EXECUTIVE CHEF LAB BLOOD ORDERABLES Performing Organization Address City/State/[place] [address] [place] [address] (ABNORMAL) Glomerular Filtration Rate (03/11/2023 11:15 AM CDT)Only the most recent of43 resultswithin the time period is included. P athologist Signature eGFR 59 (L) >=60 [place] mL/min/1.73 sq. m Comment: The eGFRcr is [...] fulfill criteria for CKD. Testing performed at [facility], [address] [place] [address], [place] [address] Specimen Anatomical Collection Method Collection Time Receive d Time (Source) Location / / Volume Laterality Blood 03/11/2023 11:15 03/11/2023 AM CDT 11:16 AM CDT [facility] - 03/11/2023 11:40 AM CDT Follow up at 1120, lab prior and infusio n after Lorena Kayla Hdez [facility] LAB BLOOD ORDERABLES Performing Organization Address City/State/ZIP Code Phon e Number [place], [place] [id number] [place] [address] Fractionated Bilirubin (03/11/2023 11:15 AM CDT)Only the most recent of24 resultswithin the time period is included. athologist Signature Bili Total <0.3 <=1.2 mg/dL [place] Comment: Direct and indirect bilirubin will not b e reported when Total bilirubin result is <0.3 mg/dL Indocyanine Green (ICG) may cause falsel y elevated bilirubin results. Total and direct bilirubin must not be measured from samples containing indocyanine green. False elevation of total bilirubin can b e seen in patients with IgG concentrations above 28 g/L. Testing performed at [facility], [address] [place] [address] Specimen Anatomical Collection Method Collection Time Receive d Time (Source) Location / / Volume Laterality Blood 03/11/2023 11:15 03/11/2023 AM CDT 11:16 AM CDT [facility] - 03/11/2023 11:40 AM CDT Follow up at 1120, lab prior and infusio n after Lorena Kayla Hdez [facility] LAB BLOOD ORDERABLES Performing Organization Address City/[facility]/[place] [address] [place] [address] (ABNORMAL) Differential (03/11/2023 11:15 AM CDT)Only the most recent of43 resultswithin the time period is included. athologist Signature Neutrophil % 61.7 42.0 - 66.0 [place] % Comment: All components of the Different ial performed at [facility], [address] [place] [address] Lymphocyte % 25.2 24.0 - 44.0 % [place] Comment: As part of the Differential hailey ting performed at [facility], [address] [place] [address] Monocyte % 8.5 (H) 2.0 - 7.0 % [place] Comment: As part of the Differential hailey ting performed at [facility], [address] [place] [address], [place] [address] Eosinophil % 3.8 1.0 - 4.0 % [place] Comment: As part of the Differential hailey ting performed at [facility], [address] [place] [address], [place] [address] Basophil % 0.5 0.0 - 1.0 % [place] Comment: As part of the Differential hailey ting performed at [facility], [address] [place] [address], [place] [address] IGRE % 0.3 0.0 - 0.4 % [place] Comment: IGRE % count includes Metamyelocytes, My elocytes, and Promyelocytes. As part of the Differential testing perf ormed at [facility], [address] [place] [address], [place] [address] Neutrophil Abs 3.71 1.70 - 7.30 K/uL [place] Comment: As part of the Differential hailey ting performed at [facility], [address] [place] [address], [place] [address] Lymphocyte Abs 1.52 1.00 - 4.80 K/uL [place] Comment: As part of the Differential hailey ting performed at [facility], [address] [place] [address], [place] [address] Monocyte Abs 0.51 0.08 - 0.70 K/uL [place] Comment: As part of the Differential hailey ting performed at [facility], [address] [place] [address] Eosinophil Abs 0.23 0.04 - 0.40 K/uL [place] Comment: As part of the Differential hailey ting performed at [facility], [address] [place] [address] Basophil Abs 0.03 0.00 - 0.10 K/uL [place] Comment: As part of the Differential hailey ting performed at [facility], [address] [place] [address] IG Abs 0.02 0.00 - 0.04 K/uL [place] Comment: As part of the Differential hailey ting performed at [facility], [address] [place] [address], [place] [address] Specimen Anatomical Collection Method Collection Time Receive d Time (Source) Location / / Volume Laterality Blood 03/11/2023 11:15 03/11/2023 AM CDT 11:16 AM CDT Narrative [place] - 03/11/2023 11:20 AM CDT Follow up at 1120, lab prior and infusio n after Lorena Hdez [facility] LAB BLOOD ORDERABLES Performing Organization Address City/[facility]/ZIP Code Phon e Number [address] BUN (03/11/2023 11:15 AM CDT)Only the most recent of43 resultswithin the time period is included. P athologist Signature BUN 20 6 - 23 mg/dL [place] Comment: Testing performed at [facility], [address] [place] [address] Specimen Anatomical Collection Method Collection Time Receive d Time (Source) Location / / Volume Laterality Blood 03/11/2023 11:15 03/11/2023 AM CDT 11:16 AM CDT Narrative [place] - 03/11/2023 11:40 AM CDT Follow up at 1120, lab prior and infusio n after Lorena Hdez [facility] LAB BLOOD ORDERABLES Performing Organization Address City/[facility] Phon e Number [address] (ABNORMAL) ALT (03/11/2023 11:15 AM CDT)Only the most recent of24 resultswithin the time period is included. P athologist Signature ALT 40 (H) <=33 U/L [place] Comment: Testing performed at [facility], [address] [place] [address] Specimen Anatomical Collection Method Collection Time Receive d Time (Source) Location / / Volume Laterality Blood 03/11/2023 11:15 03/11/2023 AM CDT 11:16 AM CDT [facility] - 03/11/2023 11:40 AM CDT Follow up at 1120, lab prior and infusio n after Lorena Hdez [facility] LAB BLOOD ORDERABLES Performing Organization Address City/[facility]/ZIP Code Phon e Number [address] Aspartate Aminotransferase (03/11/2023 11:15 AM CDT)Only the most recent of24 resultswithin the time period is included. athologist Signature AST 26 <=32 U/L [place] Comment: Testing performed at [facility], [address] [place] [address] Specimen Anatomical Collection Method Collection Time Receive d Time (Source) Location / / Volume Laterality Blood 03/11/2023 11:15 03/11/2023 AM CDT 11:16 AM CDT [facility] - 03/11/2023 11:40 AM CDT Follow up at 1120, lab prior and infusio n after Lorena Hdez [facility] LAB BLOOD ORDERABLES Performing Organization Address City/State/ZIP Code Phon e Number [address] Total Protein (03/11/2023 11:15 AM CDT)Only the most recent of24 resultswithin the time period is included. athologist Signature Total Protein 7.0 6.4 - 8.3 [place] g/dL Comment: Testing performed at [facility], [address] [place] [address] Specimen Anatomical Collection Method Collection Time Receive d Time (Source) Location / / Volume Laterality Blood 03/11/2023 11:15 03/11/2023 AM CDT 11:16 AM CDT [facility] - 03/11/2023 11:40 AM CDT Follow up at 1120, lab prior and infusio n after Lorena Hdez [facility] LAB BLOOD ORDERABLES Performing Organization Address City/[facility]/ZIP Code Phon e Number [address] (ABNORMAL) Alkaline Phosphatase (03/11/2023 11:15 AM CDT)Only the most recent of 24 resultswithin the time period is included. P athologist Signature Alk Phos 107 (H) 35 - 104 [place] U/L Comment: Testing performed at [facility], [address] [place] [address] Specimen Anatomical Collection Method Collection Time Receive d Time (Source) Location / / Volume Laterality Blood 03/11/2023 11:15 03/11/2023 AM CDT 11:16 AM CDT [facility] - 03/11/2023 11:40 AM CDT Follow up at 1120, lab prior and infusio n after Lorena Hdez [facility] LAB BLOOD ORDERABLES Performing Organization Address City/[facility]/ZIP Code Phon e Number [address] (ABNORMAL) Magnesium Level (03/11/2023 11:15 AM CDT)Only the most recent of42 resultswithin the time period is included. athologist Signature Magnesium 1.4 (L) 1.6 - 2.6 [place] mg/dL Comment: Testing performed at [facility], [address] [place], [place] [id number] Specimen Anatomical Collection Method Collection Time Receive d Time (Source) Location / / Volume Laterality Blood 03/11/2023 11:15 03/11/2023 AM CDT 11:16 AM CDT Narrative [place] - 03/11/2023 11:40 AM CDT Follow up at 1120, lab prior and infusio n after Lorena Hdez [facility] LAB BLOOD ORDERABLES Performing Organization Address City/[facility]/ZIP Code Phon e Number [address] (ABNORMAL) Glucose Level (03/11/2023 11:15 AM CDT)Only the most recent of43 resultswithin the time period is included. athologist Signature Glucose Level 324 (H) 70 - 99 [place] mg/dL Comment: Effective 05/27/16, the glucose reference intervals have been updated based on [place] [employer] guidelines (Standards of Medical Care in Diabetes 2016. Diabetes Care 2016; 39: S13-S22). Fasting blood glucose: Normal: 70-99 mg/dL Impaired fasting glucose (increased risk for diabetes or pre-diabetes): 100- 125 mg/dL Diabetes mellitus: >/=126 mg/dL Random blood glucose: Normal: 70-199 mg/dL Note: Random glucose >100 mg/dL is assoc iated with increased risk for diabetes Testing performed at [facility], [address] [place] [address] Specimen Anatomical Collection Method Collection Time Receive d Time (Source) Location / / Volume Laterality Blood 03/11/2023 11:15 03/11/2023 AM CDT 11:16 AM CDT [facility] - 03/11/2023 11:40 AM CDT Follow up at 1120, lab prior and infusio n after Lorena Hdez [facility] LAB BLOOD ORDERABLES Performing Organization Address City/State/ZIP Code Phon e Number [address] Calcium Level (03/11/2023 11:15 AM CDT)Only the most recent of43 resultswithin the time period is included. athologist Signature Calcium Lvl 9.3 8.4 - 10.2 [place] mg/dL Comment: [facility], [address] [place] [address] Specimen Anatomical Collection Method Collection Time Receive d Time (Source) Location / / Volume Laterality Blood 03/11/2023 11:15 03/11/2023 AM CDT 11:16 AM CDT [facility] - 03/11/2023 11:40 AM CDT Follow up at 1120, lab prior and infusio n after Lorena Hdez EXECUTIVE CHEF LAB BLOOD ORDERABLES Performing Organization Address City/State/[place] [address] [place] [address] Albumin Level (03/11/2023 11:15 AM CDT)Only the most recent of24 resultswithin the time period is included. athologist Signature Albumin Lvl 3.9 3.5 - 5.2 [place] gm/dL Comment: Testing performed at [facility], [address] [place] [address] Specimen Anatomical Collection Method Collection Time Receive d Time (Source) Location / / Volume Laterality Blood 03/11/2023 11:15 03/11/2023 AM CDT 11:16 AM CDT Narrative [place] - 03/11/2023 11:40 AM CDT Follow up at 1120, lab prior and infusio n after Lorena Hdez [facility] LAB BLOOD ORDERABLES Performing Organization Address City/[facility]/[place] [address] [place] [address] (ABNORMAL) Electrolyte Panel (03/11/2023 11:15 AM CDT)Only the most recent of44 resultswithin the time period is included. athologist Signature Sodium Lvl 134 (L) 136 - 145 [place] mEq/L Comment: Testing performed at [facility], [address] [place] [address] Potassium Lvl 4.5 3.5 - 5.1 mEq/L [facility] CIT Y Comment: Testing performed at [facility], [address] [place] [address] Chloride 100 98 - 107 mEq/L [place] Comment: Testing performed at [facility], [address] [place] [address] CO2 24 22 - 29 mEq/L [place] Comment: Testing performed at [facility], [address] [place] [address] Anion Gap 10 4 - 14 mEq/L [place] Comment: Testing performed at [facility], [address] [facility], [place] [address] Specimen Anatomical Collection Method Collection Time Receive d Time (Source) Location / / Volume Laterality Blood 03/11/2023 11:15 03/11/2023 AM CDT 11:16 AM CDT Narrative [place] - 03/11/2023 11:40 AM CDT Follow up at 1120, lab prior and infusio n after Lorena Hdez [facility] LAB BLOOD ORDERABLES Performing Organization Address City/[facility] [place] [address] [address] [facility] (ABNORMAL) POC Glucose Screen (02/16/2023 12:02 PM CDT)Only the most recent of 154 resultswithin the time period is included. P athologist Signature POC Glucose 211 (H) 70 [...] Sample Type Capillary POC [facility] Performing Lab [facility] POC TELCO R Comment: [facility], [address] [place] [id number]; Lab Direct or: Chula Jacob MD; Waived Point of Care Testing - Gabrielle Mueller MD Specimen Anatomical Collection Method Collection Time Receive d Time (Source) Location / / Volume Laterality Blood 02/16/2023 12:02 02/16/2023 PM CDT 12:02 PM CDT Ashleigh Rangel MD POCT ORDERABLES - DEVIC E Performing Organization Address City/State/ZIP Code Phon e Number POC TEL[facility] Unless otherwise noted, [place] [address] lab tests performed by: Division of Pathology and Laboratory Medicine [address] [facility] (ABNORMAL) Anti-Xa Level (02/16/2023 11:13 AM CDT) athologist Signature Anti-Xa Level 1.45 (H) 0.00 - [facility] 0.10 [place] unit/mL [facility]ER CENTER Comment: Anti-Xa Level (Heparin assay for Low [...] Ref: Chest 2008; 133;[id number] Hep Type Enoxaparin [facility] CENTER Specimen Anatomical Collection Method Collection Time Receive d Time (Source) Location / / Volume Laterality Blood 02/16/2023 11:13 02/16/2023 AM CDT 11:21 AM CDT Narrative [facility] - 3 1:11 PM CDT Nurse please coordinate with lab to draw n Anti-Xa level (low molecular weight heparin level) 4 hours after 02/16/23 morning kourtney xaparin dose is given. Angeli Wang MD LAB BLOOD ORDERABLES Performing Organization Address City/State/ZIP Code Phon e Number [facility] Unless otherwise noted, [place], [place] [id number] [place] [address] all lab tests performed by: Division of Pathology and Laboratory Medicine [address] [facility] Phosphorus Level (02/16/2023 6:15 AM CDT)Only the most recent of40 resultswithin the time period is included. athologist Signature Phosphorus 4.3 2.5 - 4.5 [facility] mg/dL [facility] Specimen Anatomical Collection Method Collection Time Receive d Time (Source) Location / / Volume Laterality Blood 02/16/2023 6:15 AM 3 6:59 CDT AM CDT Christopher Mark [employer] LAB BLOOD ORDERABLES Performing Organization Address City/State/ZIP Code Phon e Number [facility] Unless otherwise noted, [address] all lab tests performed by: Division of Pathology and Laboratory Medicine [address] [place] [address] General Laboratory Add-On Test (02/12/2023 9:33 AM CDT)Only the most recent of4 resultswithin the time period is included. Patholo gist Method Time Signature Ordered Test Added [facility] Test Needed procalcitonin [facility] Specimen Anatomical Collection Method Collection Time Receive d Time (Source) Location / / Volume Laterality Existing 02/12/2023 9:33 AM 3 9:34 CDT AM CDT Kimberli GALE LAB BLOOD ORDERABLES Performing Organization Address [facility] Phon e Number [facility] Unless otherwise noted, [address] all lab tests performed by: Division of Pathology and Laboratory Medicine [address] [place] [address] (ABNORMAL) Procalcitonin (02/12/2023 5:34 AM CDT)Only the most recent of4 resultswithin the time period is included. P athologist Signature Procalcitonin 0.38 (H) <=0.08 [facility] ng/[facility] Comment: Procalcitonin > 2.00 ng/mL: [...] with extended dilution as it exceeds the technology consultant's recommended limit. Caution should be exercised when interpreting such values and done in conjunction with clinical context. Specimen Anatomical Collection Method Collection Time Receive d Time (Source) Location / / Volume Laterality Blood 02/12/2023 5:34 AM 6:18 CDT AM CDT Keithsharifa Mark VERNON LAB BLOOD ORDERABLES Performing Organization Address City/State/ZIP Code Phon e Number [facility] Unless otherwise noted, [place], [place] [id number] [place] [address] all lab tests performed by: Division of Pathology and Laboratory Medicine [address] [facility] CT Maxillofacial Area with Contrast (02/11/2023 [...] linically indicated. I personally reviewed these image(s) deborah ng [...] ndicated. I personally reviewed these image(s) deborah ng with the resident's/fellow's interpretations, certify that if a procedure was performed I was physically present, and agree with the final report. Angeli Wang MD IMG CT ORDERABLES Creatine Kinase (02/09/2023 5:37 AM CDT)Only the most recent of2 resultswithin the time period is included. P athologist Signature CK 125 26 - 192 [facility] Specimen Anatomical Collection Method Collection Time Receive d Time (Source) Location / / Volume Laterality Blood 02/09/2023 5:37 AM 6:08 CDT AM CDT Shelby GALE LAB BLOOD ORDERABLES Performing Organization Address City/State/ZIP Code Phon e Number [facility] Unless otherwise noted, [place] [address] [place] all lab tests performed by: Division of Pathology and Laboratory Medicine [address] [place] [address] US Arm Venous Doppler Bilateral (02/08/2023 6:28 [...] PM CDT Examination: US ARM VENOUS DOPPLER [facility], 02/08/2023 6:28 PM Clinical History: Adenoid [...] - 02/08/2023 Examination: US ARM VENOUS DOPPLER [facility], 02/08/2023 6:28 PM Clinical History: Adenoid [...] was not perform ed in this study. ([facility] Study). Diastology: Indeterminate. Right Ventricle: The right [...] 6.0 cm2 LVOT diam: 1.9 cm EDV(MOD-A4C): 209. 8 ml ESV(MOD-A4C): 85.0 ml LVOT area: 3.0 cm2 EF(MOD-A4C): 59. 5 % EDV(MOD-A2C): 155.4 ml ESV(MOD-A2C): 53.9 ml EDV(MOD-bp): 1 90.6 ml EF(MOD-A2C): 65.3 % ESV(MOD-bp): 71. 5 [...] mmHg MVA(P1/2t): 3.2 cm2 Ao V2 mean: 113 .8 cm/sec Ao mean P.0 mmHg MV dec slope: 421.2 cm/sec2 Ao V2 VTI : 32.7 cm NGOZI(I,D): 1.9 cm2 NGOZI(V,D): 1.7 [...] (V,D ): 0.74 Dimensionless Index: 0.58 E/e' (avg) : 11.6 E/e' (lat): 9.2 E/e' (sept): 15.7 Son Amelia Estella GRIFFIN CV ECHO ORDERABLES Performing Organization Address City/State/ZIP Code Phon e Number ISCV HIV-1/2 Antigen [...] purpose. For additional information please refer to http://education.Toovari/fa q/XXV418 (This link is being provided for informa tional/ educational purposes only.) The performance of this assay has not be en clinically validated in patients less than 2 years old. Lab test performed by: Lab Mnemonic: [facility] [employer] [address] [address] JOSE ELIAS MELÉNDEZ MD Specimen Anatomical Collection Method Collection Time Receive d Time (Source) Location / / Volume Laterality Blood 02/07/2023 6:52 AM 3 7:22 CDT AM CDT Thao Soria MD LAB BLOOD ORDERABLES Performing Organization Address City/State/ZIP Code Phon e Number [facility] Hepatitis C Virus Ab (02/07/2023 6:52 AM CDT)Only the most recent of2 results within the time period is included. Patholo gist Method Time Signature HCVAb. Non Reactive Non Reactive [facility] [place] Comment: Antibody detection in the immunocompromi sed [...] MD LAB BLOOD ORDERABLES Performing Organization Address [facility] Phon e Number [facility] Unless otherwise noted, [address] all lab tests performed by: Division of Pathology and Laboratory Medicine [address] [place] [address] Hepatitis B Total Ig Core Ab (SCREENING) (anti-HBc total Ig; HBcAb total Ig) (02/07/2023 6:52 AM CDT) [facility] Method Time Signature HBcAb. Non Reactive Non Reactive [facility] Specimen Anatomical Collection Method Collection Time Receive d Time (Source) Location / / Volume Laterality Blood 02/07/2023 6:52 AM 3 8:32 CDT AM CDT Thao Soria MD LAB BLOOD ORDERABLES Performing Organization Address [facility] Phon e Number [facility] Unless otherwise noted, [address] all lab tests performed by: Division of Pathology and Laboratory Medicine [address] [place] [address] Hepatitis B Surface Ag (02/07/2023 6:52 AM CDT) [facility] Method Time Signature HBsAg. Non Reactive Non Reactive [facility] Specimen Anatomical Collection Method Collection Time Receive d Time (Source) Location / / Volume Laterality Blood 02/07/2023 6:52 AM 3 8:32 CDT AM CDT Thao Soria MD LAB BLOOD ORDERABLES Performing Organization Address [facility] Phon e Number [facility] Unless otherwise noted, [address] all lab tests performed by: Division of Pathology and Laboratory Medicine [address] [place] [address] Blood Culture (02/07/2023 6:52 AM CDT)Only the most recent of6 resultswithin the time period is included. athologist Signature Final Report No growth [facility] Specimen Anatomical Collection Method Collection Time Receive d Time (Source) Location / / Volume Laterality Blood 02/07/2023 6:52 AM 3 7:43 (Venipuncture-Ri CDT AM CDT ght) Comment: arm Tim Nguyen MD MICROBIOLOGY - GENERAL ORDER [place] Performing Organization Address City/State/ZIP Code Phon e Number [facility] Unless otherwise noted, [address] all lab tests performed by: Division of Pathology and Laboratory Medicine [facility] Michelle Hodges Transferrin with TIBC (02/07/2023 6:52 AM CDT) athologist Signature Transferrin 205 200 - 360 [facility] mg/dL [facility] TIBC 287 250 - 450 [facility] Specimen Anatomical Collection Method Collection Time Receive d Time (Source) Location / / Volume Laterality Blood 02/07/2023 6:52 AM 3 7:07 CDT AM CDT Thao Soria MD LAB BLOOD ORDERABLES Performing Organization Address City/[facility]/ZIP Code Phon e Number [facility] Unless otherwise noted, [address] all lab tests performed by: Division of Pathology and Laboratory Medicine [facility] Michelle Hdoges Iron Level (02/07/2023 6:52 AM CDT) athologist Signature Iron 51 37 - 145 [facility] Specimen Anatomical Collection Method Collection Time Receive d Time (Source) Location / / Volume Laterality Blood 02/07/2023 6:52 AM 3 7:07 CDT AM CDT Thao Soria MD LAB BLOOD ORDERABLES Performing Organization Address City/[facility]/ZIP [facility] Phon e Number [facility] Unless otherwise noted, [address] all lab tests performed by: Division of Pathology and Laboratory Medicine [facility] Michellelary Hodges (ABNORMAL) Hemoglobin A1c (02/07/2023 6:52 AM CDT)Only the most recent of2 resultswithin the time period is included. athologist Signature A1C 10.2 (H) 4.3 - 5.6 % [facility] Comment: HbA1c values >=6.5% are diagnostic of [...] Organization Address City/State/ZIP Code Phon e Number [facility] Unless otherwise noted, [address] all lab tests performed by: Division of Pathology and Laboratory Medicine [address] [facility] (ABNORMAL) Ferritin Level (02/07/2023 6:52 AM CDT) athologist Signature Ferritin Lvl 320 (H) 13 - 150 [facility] ng/mL [facility] Specimen Anatomical Collection Method Collection Time Receive d Time (Source) Location / / Volume Laterality Blood 02/07/2023 6:52 AM 3 7:07 CDT AM CDT Thao Soria MD LAB BLOOD ORDERABLES Performing Organization Address City/[facility] [email or web address] Code Phon e Number [facility] Unless otherwise noted, [address] all lab tests performed by: Division of Pathology and Laboratory Medicine [address] [facility] (ABNORMAL) Lipid Panel (02/07/2023 6:52 AM CDT) athologist Signature Chol 137 <=199 mg/dL [facility] Comment: ATP III Classification of Total Choleste rol Primary Target of Therapy (in mg/dL): <200 Desirable 200-239 Borderline high >=240 High Trig 184 (H) <=149 mg/dL [facility] Comment: ATP III Classification of Serum Triglyce rides Primary Target of Therapy (in mg/dL): <150 Normal 150-199 Borderline high 200-499 High >=500 Very high Non-fasting triglycerides >200 mg/dL may be followed up with a fasting Lipid Panel. Calculated LDL-C may be falsely decreased when non-fasting triglycerides >200 mg/dL. HDL 27 (L) >=40 mg/dL [facility] CENTER LDL 73 <=100 mg/dL [facility] Comment: ATP III Classification of LDL Cholestero l Primary Target of Therapy (in mg/dL): <100 Optimal 100-129 Near optimal/above optimal 130-159 Borderline high 160-189 High >=190 Very high VLDL 37 mg/dL [facility] Specimen Anatomical Collection Method Collection Time Receive d Time (Source) Location / / Volume Laterality Blood 02/07/2023 6:52 AM 3 7:07 CDT AM CDT Thao Soria MD LAB BLOOD ORDERABLES Performing Organization Address City/State/ZIP Code Phon e Number [facility] Unless otherwise noted, [address] all lab tests performed by: Division of Pathology and Laboratory Medicine [facility] Michellelary Hodges Clostridium Difficile DNA Path Review (02/07/2023 5:18 AM CDT) Component Value Ref Test Analysis Performed At [facility] gist Range Method Time Signature C diff DNA [place] Reviewed and Electronically signed by Pathologist: [place] MD PATRICIA CHAVEZ MD #[id number] [facility] Comment: C. difficile Toxin DNA (Primary Method) [...] specimen should be collected for repeat testing. PATRICIA CHAVEZ MD - [id number] Dictated by: PATRICIA CHAVEZ MD - [id number] Dictated Date/Time: 02.07.2023 16:35 PM CDT Transcribed Date/Time: 02.07.2023 16:35 PM CDT Electronically Signed By: PATRICIA OTTO MD - [id number] on 02.07.2023 16:35 PM Specimen Anatomical Collection Method Collection Time Receive d Time (Source) Location / / Volume Laterality Stool 02/07/2023 5:18 AM 3 8:07 CDT AM CDT Thao Soria MD MICROBIOLOGY - GENERAL ORDER [place] Performing Organization Address City/State/ZIP Code Phon e Number [facility] Unless otherwise noted, [address] all lab tests performed by: Division of Pathology and Laboratory Medicine [facility] Clostridium Difficile DNA Assay (02/07/2023 5:18 AM CDT) [facility] gist Method Time [facility] C difficile DNA Negative Negative MO [facility] C difficle Toxin Test Not Negative [facility] EIA Performed [facility] C difficile C. difficile [facility] Interpretation DNA [place] detection CANCER was negative CENTER making C. difficile infection highly unlikely in this patient. EIA not performed. Specimen Anatomical Collection Method Collection Time Receive d Time (Source) Location / / Volume Laterality Stool 02/07/2023 5:18 AM 6:14 CDT AM CDT Thao YogiRodger Soria MD MICROBIOLOGY - GENERAL ORDER [place] Performing Organization Address City/State/ZIP Code Phon e Number [facility] Unless otherwise noted, [place] [address] CENTER all lab tests performed by: Division of Pathology and Laboratory Medicine [address] [place] [address] Gastrointestinal Multiplex Panel (02/07/2023 5:16 AM CDT) Component Value Ref Range Test Analysis Performed Patholog t Method Time At [facility] Campylobacter Not Detected Not [facility] Detected [facility] C difficile DNA (GI Refer to [facility] Multi Panel) separate C. [place] difficile DNA CANCER Assay for CENTER results Plesiomonas Not Detected Not [facility] shigelloides Detected [facility] Salmonella Not Detected Not [facility] Detected [facility] Vibrio Not Detected Not [facility] Detected [facility] Vibrio cholerae Not Detected Not [facility] Detected [facility] Yersinia Not Detected Not [facility] enterocolitica Detected [facility] Enteroaggregative E. Not Detected Not [facility] coli (EAEC) Detected [facility] Enteropathogenic E. Not Detected Not [facility] coli (EPEC) Detected [facility] Enterotoxigenic E. Not Detected Not [facility] coli (ETEC) Detected [facility] Shiga-like Not Detected Not [facility] toxin-producing E. Detected [place] col (STEC) [facility] E. coli O157 Not Not [facility] Applicable Detected [facility] Shigella/Enteroinvas Not Detected Not [facility] rosales E. coli (EIEC) Detected [facility] Cryptosporidium Not Detected Not [facility] Detected [facility] Cyclospora Not Detected Not [facility] cayetanensis Detected [facility] Entamoeba Not Detected Not [facility] histolytica Detected [facility] Giardia lamblia Not Detected Not [facility] MD Detected [facility] Adenovirus F 40/41 Not Detected Not [facility] MD Detected [facility] Astrovirus Not Detected Not [facility] MD Detected [facility] Norovirus GI/GII Not Detected Not [facility] MD Detected [facility] Rotavirus A Not Detected Not [place] MD Detected [facility] Sapovirus (I, II, IV Not Detected Not [place] MD and V) Detected [facility] Specimen Anatomical Collection Method Collection Time Receive d Time (Source) Location / / Volume Laterality Stool 02/07/2023 5:16 AM 3 6:13 CDT AM CDT Son Amelia Estella GRIFFIN MICROBIOLOGY - GENERAL ORDER [place] Performing Organization Address City/State/ZIP Code Phon e Number [facility] Unless otherwise noted, [place] [address] [place] all lab tests performed by: Division of Pathology and Laboratory Medicine [facility] Gastrointestinal Multiplex Panel Path Review (02/07/2023 5:16 AM CDT) [facility] Method Time Signature [place] Reviewed and Electronically signed by Pathologist: CARLA CHAVEZ MD #[id number] [facility] Comment: Performed by real-time PCR methodology. This assay detects the presence of nucleic acid (DNA or RNA) for the pathogens reported. A result of "Not Detected" does not exclude the possibility of the presen ce of one or more of the pathogens at ss than the detection limits of this assay. The results of the GI Panel should be co nsidered presumptive. Clinical correlation is recommended. PATRICIA CHAVEZ MD - [id number] Dictated by: PATRICIA CHAVEZ MD - [id number] Dictated Date/Time: 02.07.2023 16:40 PM CDT Transcribed Date/Time: 02.07.2023 16:40 PM CDT Electronically Signed By: PATRICIA OTTO MD - [id number] on 02.07.2023 16:40 PM Specimen Anatomical Collection Method Collection Time Receive d Time (Source) Location / / Volume Laterality Stool 02/07/2023 5:16 AM 3 6:13 CDT AM CDT Thao Soria MD LAB BLOOD ORDERABLES Performing Organization Address City/[facility]/ZIP Code Phon e Number [facility] Unless otherwise noted, [address] all lab tests performed by: Division of Pathology and Laboratory Medicine [facility] EKG, 12-Lead (Portable) (02/07/2023)Only the most recent of2 resultswithin the time period is included. Specimen (Source) Anatomical Location Collection Method / Collectio n Time Received Time / Laterality Volume Narrative This result has an attachment that is no t available. Romana Guy MD ECG ORDERABLES Performing Organization Address City/[facility]/ZIP Code Phon e Number [facility] IECG NT-Pro BNP (In-House) (02/06/2023 3:05 AM CDT)Only the most recent of2 results within the time period is included. athologist Signature NT ProBNP 83 <=125 pg/mL [facility] Specimen Anatomical Collection Method Collection Time Receive d Time (Source) Location / / Volume Laterality Blood 02/06/2023 3:05 AM 3 3:20 CDT AM CDT Cathie Meneses APN LAB BLOOD ORDERABLES Performing Organization Address City/[facility] Phon e Number [facility] Unless otherwise noted, [address] all lab tests performed by: Division of Pathology and Laboratory Medicine [address] [facility] CRP (02/06/2023 3:05 AM CDT)Only the most recent of3 resultswithin the time period is included. athologist Signature CRP 65.62 mg/L [facility] Comment: Reference ranges for HS CRP assay [...] 3:05 AM 3 3:20 CDT AM CDT Cathiesourav Meneses [employer] LPN LAB BLOOD ORDERABLES Performing Organization Address City/[facility]/ZIP Code Phon e Number [facility] Unless otherwise noted, [address] all lab tests performed by: Division of Pathology and Laboratory Medicine [address] [place] [address] Troponin T (In-House) (02/06/2023 1:09 AM CDT)Only the most recent of2 results within the time period is included. P athologist Signature Troponin T 10 <=19 ng/L [facility] Comment: < 19 ng/L Suggest retest at [...] MD LAB BLOOD ORDERABLES Performing Organization Address City/[facility]/ZIP Code Phon e Number [facility] Unless otherwise noted, [address] all lab tests performed by: Division of Pathology and Laboratory Medicine [address] [place] [address] (ABNORMAL) Urine Culture (02/06/2023 12:40 AM CDT)Only the most recent of3 resultswithin the time period is included. Patholo gist Method Time Signature Final Report 10 - 50,000 cfu/ml Normal site isabel present. MO Generally of low significance. KULWANT Correlate with clinical data and culture history. [facility] (A) Specimen Anatomical Collection Method Collection Time Receive d Time (Source) Location / / Volume Laterality Urine 02/06/2023 12:40 02/06/2023 2:54 AM CDT AM CDT Irina Houston APN MICROBIOLOGY - GENERAL ORDER GODWIN Performing Organization Address City/[facility]/ZIP Code Phon e Number [facility] Unless otherwise noted, [address] all lab tests performed by: Division of Pathology and Laboratory Medicine [address] [place], [place] [address]ulevard aPTT (02/05/2023 8:26 PM CDT)Only the most recent of5 resultswithin the time period is included. athologist Signature aPTT 28.5 22.8 - 34.2 [facility] Specimen Anatomical Collection Method Collection Time Receive d Time (Source) Location / / Volume Laterality Blood 02/05/2023 8:26 PM 3 8:29 CDT PM CDT Deneen Guevara MD LAB BLOOD ORDERABLES Performing Organization Address City/[facility]/ZIP Code Phon e Number [facility] Unless otherwise noted, [address] all lab tests performed by: Division of Pathology and Laboratory Medicine [address] [place] [address] VB Lactate (02/05/2023 8:26 PM CDT)Only the most recent of4 resultswithin the time period is included. athologist [facility] V Lactate 1.2 0.5 - 1.6 [facility] mmol/L [facility] Specimen Anatomical Collection Method Collection Time Receive d Time (Source) Location / / Volume Laterality Blood 02/05/2023 8:26 PM 3 8:29 CDT PM CDT Deneen Guevara MD LAB BLOOD ORDERABLES Performing Organization Address City/[facility]/ZIP Code Phon e Number [facility] Unless otherwise noted, [address] all lab tests performed by: Division of Pathology and Laboratory Medicine [address] [place] [address] (ABNORMAL) Prothrombin Time with INR (02/05/2023 8:26 PM CDT)Only the most recent of5 resultswithin the time period is included. P athologist Signature PT 14.7 (H) 11.9 - 14.1 [facility] INR 1.16 (H) 0.89 - 1.10 [facility] Specimen Anatomical Collection Method Collection Time Receive d Time (Source) Location / / Volume Laterality Blood 02/05/2023 8:26 PM 8:29 CDT PM CDT Deneen Guevara MD LAB BLOOD ORDERABLES Performing Organization Address City/[facility]/ZIP Code Phon e Number [facility] Unless otherwise noted, [address] all lab tests performed by: Division of Pathology and Laboratory Medicine [address] [facility] (ABNORMAL) D Dimer (02/05/2023 8:26 PM CDT) P athologist Signature D-Dimer 3.04 (H) 0.10 - 0.50 [facility] mcg/ml [facility] Comment: The cut off value for exclusion of venou s thromboembolism is <0.51 mcg/mL FEUs (fibrinogen equival ent units). Specimen Anatomical Collection Method Collection Time Receive d Time (Source) Location / / Volume Laterality Blood 02/05/2023 8:26 PM 3 8:29 CDT PM CDT Deneen Guevara MD LAB BLOOD ORDERABLES Performing Organization Address City/[facility] [email or web address]] Code Phon e Number [facility] Unless otherwise noted, [address] all lab tests performed by: Division of Pathology and Laboratory Medicine [facility] X-ray Abdomen AP (02/05/2023 6:59 PM CDT) [...] radiographic evidence of obstruction or ileus. Amanda CHILD DIAGNOSTIC IMAGING ORDER GODWIN X-ray Chest 1 [...] lobar consoli dations or lobar pneumonias.. Amanda CHILD DIAGNOSTIC IMAGING ORDER GODWIN COVID-19 (SARS-CoV-2)Asymptomatic-LT (02/05/2023 5:09 PM CDT)Only the most recent of4 resultswithin the time period is included. [facility] Method Time Signature COVID19 Not Detected Not Detected CARLA GRIFFIN (SARS-CoV-2) [facility] COVID19 SARS Inpatient UT Indication Admission [facility] Covid 19 See Note CARLA GRIFFIN Comment [facility] Comment: The ruby SARS-CoV-2 nucleic acid test f or use on the ruyb Chastity System is a real-time RT-PCR assay intended for the qualitative detection of SARS-CoV-2 (COVID-19) viral RNA in nasopharyngeal swabs from either individuals suspected of COVID-1 9 by their healthcare provider or from any individu al, including individuals without symptoms or other reasons to suspect COVID-19. A fact sheet for patients provided by the technology consultant ([employer]) can be reviewed at: https://www.fda.gov/media/717349/luislosourav d. A fact sheet for Health Care providers is provided by the technology consultant ([employer]) and can be reviewed at: https://www.fda.gov/media/322673/download Results must be interpreted within the c [...] and high-complexity tests. [facility], CLIA Accreditation #[id number] [place] CAP Accreditation #[id number], verified the performance characteristics of this assay. Internal controls are used to monitor all stages of the test process. Specimen (Source) Anatomical Collection Method Collection Time Re ceived Time Location / / Volume Laterality Nasopharyngeal Swab 02/05/2023 5:09 02/05 PM CDT 5:17 PM CDT Amanda Proctor MD MICROBIOLOGY - GENERAL ORDER GODWIN Performing Organization Address City/State/ZIP Code Phon e Number [facility] Unless otherwise noted, [address] all lab tests performed by: Division of Pathology and Laboratory Medicine [facility] Lipase (02/05/2023 3:30 PM CDT)Only the most recent of4 resultswithin the time period is included. P athologist Signature Lipase Lvl 18 13 - 60 U/L [facility] Specimen Anatomical Collection Method Collection Time Receive d Time (Source) Location / / Volume Laterality Blood 02/05/2023 3:30 PM 3 3:39 CDT PM CDT Amanda Proctor MD LAB BLOOD ORDERABLES Performing Organization Address [facility] Phon e Number [facility] Unless otherwise noted, [address] all lab tests performed by: Division of Pathology and Laboratory Medicine [address] [place], [place] [address]d CKMB (02/05/2023 3:30 PM CDT) P athologist Signature CK MB <2.0 <=5.3 ng/mL [facility] Specimen Anatomical Collection Method Collection Time Receive d Time (Source) Location / / Volume Laterality Blood 02/05/2023 3:30 PM 3 3:39 CDT PM CDT Amanda Proctor MD LAB BLOOD ORDERABLES Performing Organization Address [facility] Phon e Number [facility] Unless otherwise noted, [address] all lab tests performed by: Division of Pathology and Laboratory Medicine [address] [place], [place] [address]d Amylase Level (02/05/2023 3:30 PM CDT)Only the most recent of2 resultswithin the time period is included. P athologist Signature Amylase Lvl 43 28 - 100 [facility] U/L [facility] Specimen Anatomical Collection Method Collection Time Receive d Time (Source) Location / / Volume Laterality Blood 02/05/2023 3:30 PM 3 3:39 CDT PM CDT Amanda Proctor MD LAB BLOOD ORDERABLES Performing Organization Address City/[facility] Phon e Number [facility] Unless otherwise noted, [address] all lab tests performed by: Division of Pathology and Laboratory Medicine [address] (ABNORMAL) Urinalysis with Microscopic (02/05/2023 12:39 AM CDT) [facility] gist Method Time Signature UA Color Freestone (A) Straw-Yel [facility] UA Appear Cloudy (A) Clear [facility] UA Glucose 500 (A) NEG mg/dL [facility] UA Bili NEG NEG [facility] UA Ketones 40 (A) NEG mg/dL [facility] UA Spec Grav 1.021 1.003 - [facility] 1.035 [facility] UA Blood NEG NEG [facility] UA pH 6.0 5.0 - 9.0 [facility] UA Protein 20 (A) NEG mg/dL [facility] UA Urobilinogen NEG NEG [facility] UA Nitrite NEG NEG [facility] UA Leuk Est NEG NEG [facility] UA WBC NOT SEEN 0 - 2 [facility] /[facility] Comment: Some reporting parameters within the Uri nalysis test have changed due to the implementation of new instrumentation in the [facility], allowing greater sensitivity of measurement. Urinalysis results rep orted by the [facility] using existing instrumentation, as well as Urinalysis t esting performed manually or by backup methodology at the [facility] will remain relatively unchanged. New reporting parameters and units will not be reported for all campuses. UA RBC 13 (H) 0 - 2 /HPF [facility] UA Mucous NOT SEEN Not Seen-Trace /HPF [facility] UA Bacteria NOT SEEN NOT SEEN /HPF [facility] UA Squam Epi OCC None-Occasional /HPF [facility] Specimen Anatomical Collection Method Collection Time Receive d Time (Source) Location / / Volume Laterality Urine 02/05/2023 12:39 02/06/2023 AM CDT 12:42 AM CDT Irina Houston APN URINE ORDERABLES Performing Organization Address City/State/ZIP Code Phon e Number [facility] Unless otherwise noted, [address] all lab tests performed by: Division of Pathology and Laboratory Medicine [address] Tip Verification Central Vascular Access Device (01/29/2023 3:08 PM CDT) Narrative Justo Banuelos RN - 01/29/2023 3:08 PM CDT Justo Banuelos RN 01/29/2023 3:08 PM Central Vascular Access Device Tip Verif ication Performed by: Justo Banuelos RN Authorized by: Rashaun Wiley MD [employer] Date device placed: 01/29/2023 Placed by: Justo Banuelos RN Device placement location: [facility] Catheter Type: PICC Catheter lumen: Double lumen [...] By: Rashaun Wiley MD Procedure Location: Inpatient Spark Plug Tester present: yes (Saeed GRIFFIN) 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 Informed consent obtained prior to procedure, the risks, benefits, and alternative discussed with patient/designated sales representative cash registers. Pre-p rocedure the patient was alert. Time [...] placement. placement and tip verified using tip shingle carrier and place ment and tip verified by [...] the time period is included. athologist Signature Hgb 13.3 12.0 - 16.0 MO MD BLUM gm/dL [facility] Specimen Anatomical Collection Method Collection Time Receive d Time (Source) Location / / Volume Laterality Blood 01/28/2023 8:24 AM 3 8:30 CDT AM CDT Mana BERMUDEZN LAB BLOOD ORDERABLES Performing Organization Address City/State/ZIP Code Phon e Number [facility] Unless otherwise noted, [address] all lab tests performed by: Division of Pathology and Laboratory Medicine [address] [facility] Hematocrit (01/28/2023 8:24 AM CDT)Only the most recent of3 resultswithin the time period is included. athologist Signature Hct 40.6 37.0 - 47.0 [facility] % [facility] Specimen Anatomical Collection Method Collection Time Receive d Time (Source) Location / / Volume Laterality Blood 01/28/2023 8:24 AM 3 8:30 CDT AM CDT Shayecarlos Powers JOSH LAB BLOOD ORDERABLES Performing Organization Address City/[facility]/ZIP Code Phon e Number [facility] Unless otherwise noted, [address] all lab tests performed by: Division of Pathology and Laboratory Medicine [facility] [facility] ([facility]NORMAL) Urinalysis Microscopic Exam (01/26/2023 10:45 PM CDT) athologist Signature UA WBC 6 (H) 0 - 2 /HPF [facility] Comment: Some reporting parameters within the Uri nalysis test have changed due to the implementation of new instrumentation in the [facility], allowing greater sensitivity of measurement. Urinalysis results rep orted by the [facility] Centers using existing instrumentation, as well as Urinalysis t esting performed manually or by backup methodology at the [facility] [place] will remain relatively unchanged. New reporting parameters and units will not be reported for all campuses. UA RBC <1 0 - 2 /HPF MO MD BLUM [facility] UA Mucous NOT SEEN Not Seen-Trace /HPF MO MD ALCALA [facility] [place] UA Bacteria NOT SEEN NOT SEEN /HPF [facility] UA Squam Epi OCC None-Occasional /HPF [facility] Specimen Anatomical Collection Method Collection Time Receive d Time (Source) Location / / Volume Laterality Urine 01/26/2023 10:45 01/26/2023 PM CDT 10:49 PM CDT Amanda Proctor MD LAB BLOOD ORDERABLES Performing Organization Address City/[facility]/ZIP [facility] Phon e Number [facility] Unless otherwise noted, [address] all lab tests performed by: Division of Pathology and Laboratory Medicine [address] [place] [address] (ABNORMAL) Urinalysis w/Microscopic if Indicated (01/26/2023 10:45 PM CDT)Only the most recent of2 resultswithin the time period is included. Analysis Performed At Patho logist Time Signature UA Color Straw [place] [facility] UA Appear Clear Clear [facility] UA Glucose 500 (A) NEG mg/dL [facility] UA Bili NEG NEG [facility] UA Ketones NEG NEG mg/dL [facility] UA Spec Grav 1.020 1.003 - [facility] 1.035 [facility] UA Blood NEG NEG [facility] UA pH 5.5 5.0 - 9.0 [facility] UA Protein 30 (A) NEG mg/dL [facility] UA Urobilinogen NEG NEG [facility] UA Nitrite NEG NEG [facility] UA Leuk Est NEG NEG [facility] Specimen Anatomical Collection Method Collection Time Receive d Time (Source) Location / / Volume Laterality Urine 01/26/2023 10:45 01/26/2023 PM CDT 10:49 PM CDT Amanda Proctor MD URINE ORDERABLES Performing Organization Address City/[facility]/ZIP [facility] Phon e Number [facility] Unless otherwise noted, [address] all lab tests performed by: Division of Pathology and Laboratory Medicine [address] [place] [address] (ABNORMAL) LDH (01/26/2023 2:44 PM CDT)Only the most recent of3 resultswithin the time period is included. P athologist Signature LDH 289 (H) 135 - 214 [facility] U/L [facility] Comment: Results greater than 1651 U/L [...] Organization Address City/State/ZIP Code Phon e Number [facility] Unless otherwise noted, [place] [address] CENTER all lab tests performed by: Division of Pathology and Laboratory Medicine [address] [place] (ABNORMAL) Controlled Substance Monitoring Panel, Urine (01/20/2023 12:37 PM CDT) Analysis Performed At Patho logist Time Signature Urine 55.1 mg/dL [facility] Creatinine [facility] Urine Specific 1.014 [facility] [place] [facility] Urine Ph 6.2 [facility] Urine Oxidants Negative Cutoff: MO 200 mg/L [facility] Urine Comment Normal [facility] U Negative Cutoff: MO Barbiturates-Ma 200 ng/mL [facility] U Cocaine Negative Cutoff: MO Lvl-Luu 150 ng/mL [facility] Comment: This cocaine immunoassay targets benzoyl ecgonine the primary metabolite of cocaine. U THC-Luu See Footnote (A) Cutoff: 50 ng/mL [facility] Comment: RESULT: Presumptive Positive This immunoassay targets [...] testing. Codeine Not Detected Cutoff: 25 ng/mL MO MD ALCALA [facility] Comment: Tylenol 3 Zpzmfft-0-pwjc-glucuronide Not Detected Cutoff: 100 ng/mL [facility] Comment: Metabolite of codeine Morphine Not Detected Cutoff: 25 ng/mL MO MD ALCALA JASMINE [facility] Comment: Martha Mary, [place] Contin; Also a minor metabolite (10%) of codeine and can be seen in low concentra tions (<2,000 ng/mL) with poppy seed ingestion. Djmxsqwt-6-lefy-glucuronide Not Detected Cutoff: 100 ng/mL [facility] Comment: Metabolite of morphine 6-monoacetylmorphine Not Detected Cutoff: 25 ng/mL [facility] Comment: Metabolite of heroin Hydrocodone Not Detected Cutoff: 25 ng/mL [facility] Comment: Lortab, Molt, Vicodin; Also a very luci r metabolite of codeine and impurity (<1%) of oxycodone. Norhydrocodone Not Detected Cutoff: 25 ng/mL [facility] Comment: Metabolite of hydrocodone Dihydrocodeine Not Detected Cutoff: 25 ng/mL [facility] Comment: Metabolite of hydrocodone Hydromorphone Not Detected Cutoff: 25 ng/mL [facility] Comment: Dilaudid, Exalgo; Also a metabolite of h ydrocodone and a minor (<5%) metabolite of morphine. Rmxwlxqmfnmpa-0-hbjw-glucuronide Not Detected Cutoff: 100 [facility] ng/mL [facility] Comment: Metabolite of hydromorphone Oxycodone Present (A) Cutoff: 25 ng/mL [facility] Comment: Endocet, Percocet, Oxycontin Noroxycodone Present (A) Cutoff: 25 ng/mL [facility] Comment: Metabolite of oxycodone Oxymorphone Not Detected Cutoff: 25 ng/mL [facility] Comment: Numorphan, Opana; Also a metabo lite of oxycodone. Plgcwycqsts-3-zfhy-glucuronide Not Detected Cutoff: 100 ng/mL [facility] Comment: Metabolite of oxymorphone and/o r naloxone (nornaloxone) Noroxymorphone Present (A) Cutoff: 25 ng/mL [facility] Comment: Metabolite of oxymorphone and/o r naloxone (nornaloxone) Fentanyl Not Detected Cutoff: 2 ng/mL [facility] Comment: Actiq, Duragesic, Fentora Norfentanyl Not Detected Cutoff: 2 ng/mL [facility] Comment: Metabolite of fentanyl Meperidine Not Detected Cutoff: 25 ng/mL MO MD [facility] Comment: Demerol Normeperidine Not Detected Cutoff: 25 ng/mL [facility] Comment: Metabolite of meperidine Naloxone Not Detected Cutoff: 25 ng/mL MO MD ALCALA JASMINE [facility] Comment: Narcan Csqfntkm-4-nemg-glucuronide Not Detected Cutoff: 100 ng/mL [facility] Comment: Metabolite of naloxone U Methadone Not Detected Cutoff: 25 ng/mL MO MD [facility] Comment: Dolophine EDDP Not Detected Cutoff: 25 ng/mL MO MD ALCALA JASMINE [facility] Comment: Metabolite of methadone Propoxyphene Not Detected Cutoff: 25 ng/mL MO MD Benjamin [facility] Comment: Darvon, Darvocet Norpropoxyphene Not Detected Cutoff: 25 ng/mL [facility] Comment: Metabolite of propoxyphene Tramadol Not Detected Cutoff: 25 ng/mL MO MD ALCALA [facility] Comment: Tradol, Ultram, Ultracet O-desmethyltramadol Not Detected Cutoff: 25 ng/mL [facility] Comment: Metabolite of tramadol Tapentadol Not Detected Cutoff: 25 ng/mL MO MD [facility] Comment: Nucynta Myztqlodwn-geei-hvnbfffxiam Not Detected Cutoff: 100 ng/mL [facility] Comment: Metabolite of tapentadol Buprenorphine Not Detected Cutoff: 5 ng/mL MO MD Benjamin [facility] Comment: Buprenex, Suboxone Norbuprenorphine Not Detected Cutoff: 5 ng/mL [facility] Comment: Metabolite of buprenorphine Norbuprenorphine Glucuronide Not Detected Cutoff: 20 ng/mL [facility] Comment: Metabolite of buprenorphine Opioid Interpretation See Footnote [facility] Comment: Test detected the presence of oxycodone and one of its metabolites (noroxycodone) along with no roxymorphone (metabolite of oxymorphone). Suspect use of oxymorphone and/or oxycodone within the past three d ays. Trace amounts of oxycodone can be found as an impurity in oxymorphone. ADDITIONAL INFORMATIO N This test was developed and its performa nce characteristics determined by [facility] in a manner co nsistent with CLIA requirements. This test has not been sisi ared or approved by the U.S. Food and Drug Administration. Alprazolam Urine Present (A) Cutoff: 10 ng/mL [facility] Comment: Xanax Alpha-Hydroxyalprazolam Urine Present (A) Cutoff: 10 ng/mL [facility] Comment: Metabolite of Alprazolam Alpha-Hydroxyalprazolam Present (A) Cutoff: 50 ng/mL [facility] Glucuronide Urine [facility] Comment: Metabolite of Alprazolam Chlordiazepoxide Urine Not Detected Cutoff: 10 ng/mL [facility] Comment: Librium Colbazam Urine Not Detected Cutoff: 10 ng/mL [facility] Comment: Frisium, Onfi N-Desmethylclobazam Urine Not Detected Cutoff: 200 ng/mL [facility] Comment: Metabolite of Clobazam Clonazepam Urine Not Detected Cutoff: 10 ng/mL [facility] Comment: Klonopin, Rivotril 7-Aminoclonazepam Urine Not Detected Cutoff: 10 ng/mL [facility] Comment: Metabolite of Clonazepam Diazepam Urine Not Detected Cutoff: 10 ng/mL [facility] Comment: Valium Nordiazepam Urine Not Detected Cutoff: 10 ng/mL [facility] Comment: Metabolite of Chlordiazepoxide, Diazepam, or Prazepam. Flunitrazepam Urine Not Detected Cutoff: 10 ng/mL [facility] Comment: Rohypnol 7-Aminoflunitrazepam Urine Not Detected Cutoff: 10 ng/mL [facility] Comment: Metabolite of Flunitrazepam FlUrinerazepam Urine Not Detected Cutoff: 10 ng/mL [facility] Comment: Dalmane 2-Hydroxy Ethyl Flurazepam Not Detected Cutoff: 10 ng/mL [facility] Comment: Metabolite of Flurazepam Lorazepam Urine Not Detected Cutoff: 10 ng/mL [facility] Comment: Ativan Lorazepam Glucuronide Not Detected Cutoff: 50 ng/mL [facility] Comment: Metabolite of Lorazepam Midazolam Urine Not Detected Cutoff: 10 ng/mL [facility] Comment: Versed Alpha-Hydroxy Midazolam Not Detected Cutoff: 10 ng/mL [facility] Urine CENTER Comment: Metabolite of Midazolam Oxazepam Urine Not Detected Cutoff: 10 ng/mL [facility] Comment: Serax; Also a metabolite of Chlordiazepo xide, Diazepam, or Temazepam. Oxazepam Glucuronide Urine Not Detected Cutoff: 50 ng/mL [facility] Comment: Metabolite of Oxazepam Prazepam Urine Not Detected Cutoff: 10 ng/mL [facility] Comment: Centrax Temazepam Urine Not Detected Cutoff: 10 ng/mL [facility] Comment: Restoril; Also a metabolite of Diazepam. Temazepam Glucuronide Not Detected Cutoff: 50 ng/mL [facility] Comment: Metabolite of Temazepam Triazolam Urine Not Detected Cutoff: 10 ng/mL [facility] Comment: Halcion Alpha-Hydroxy Triazolam Not Detected Cutoff: 10 ng/mL [facility] Comment: Metabolite of Triazolam Zolpidem Urine Not Detected Cutoff: 10 ng/mL [facility] Comment: Ambien Zolpidem [id number] Present (A) Cutoff: 10 ng/mL [facility] Acid [facility] Comment: Metabolite of Zolpidem Benzodiazepine Interp Urine See Footnote [facility] Comment: Test detected the presence of alprazolam and two of its metabolites (alpha-hydroxyalprazolam and alpha-hydroxyalprazolam glucuronide). Agarwal spect use of alprazolam within the past three days. Test detected the presence of zolpidem p cceew-6-eiewpzvaxd acid (metabolite of zolpidem) only. Susp ect use of zolpidem within the past four days. ADDITIONAL INFORMATIO N This test was developed and its performa nce characteristics determined by [facility] in a manner co nsistent with CLIA requirements. This test has not been sisi ared or approved by the U.S. Food and Drug Administration. Methamphetamine Not Detected Cutoff: 100 ng/mL [facility] Comment: Desoxyn Amphetamine Not Detected Cutoff: 100 ng/mL [place] MD Benjamin [facility] Comment: Dyanavel XR, Adzenys ER, Adderall, Vyvan se; Also a metabolite of methamphetamine 3,4-Methylenedioxymethamphetamine Not Detected Cutoff: 100 [facility] (MDMA) ng/mL [facility] 3,6-Oirzbtplimcjws-D-Ethylamphetamine Not Detected Cutoff: 100 [facility] (MDEA) ng/mL [facility] 3,4-Methylenedioxyamphetamine (MDA) Not Detected Cutoff: 100 [facility] ng/mL [facility] Comment: Also a metabolite of MDMA and/o r MDEA Ephedrine Not Detected Cutoff: 100 ng/mL [facility] Pseudoephedrine Present (A) Cutoff: 100 ng/mL [facility] Comment: Sudafed Phentermine Not Detected Cutoff: 100 ng/mL [facility] Sourav [facility] Comment: Adipex-P, Lomaira, Qsymia Phencyclidine (PCP) Not Detected Cutoff: 20 ng/mL [facility] Methylphenidate Not Detected Cutoff: 20 ng/mL [facility] Comment: Ritalin, Concerta Ritalinic acid Not Detected Cutoff: 100 ng/mL [facility] Comment: Metabolite of methylphenidate Stimulant Interpretation See Footnote [facility] Comment: Test detected the presence of pseudoephe drine. Suspect use of pseudoephedrine within the past three days. ADDITIONAL INFORMATIO N This test was developed and its performa nce characteristics determined by [facility] in a manner co nsistent with CLIA requirements. This test has not been sisi ared or approved by the U.S. Food and Drug Administration. Test Performed by: [facility] - [address] [address] Inventory Control Manager: Yonathan Guzman M.D. Ph. D.; CLIA# [id number] Patients Current Medications NOT ANSWERED [facility] Comment: ADDITIONAL INFORMATIO N Accuracy and completeness of declared me dications on reports solely dependent on information submitted by client. Specimen Anatomical Collection Method Collection Time Receive d Time (Source) Location / / Volume Laterality Urine 01/20/2023 12:37 01/20/2023 8:31 PM CDT PM CDT Rogerio Kramer MD URINE ORDERABLES Performing Organization Address City/State/ZIP Code Phon e Number [facility] Unless otherwise noted, [address] all lab tests performed by: Division of Pathology and Laboratory Medicine [address] [place] (ABNORMAL) POC Urine Drug Screen (01/20/2023 12:37 PM CDT) athologist Signature POC U Amp Negative Negative [facility] Comment: Drug Abuse Cutoff Concentration: Cutoff: 1000 ng/mL POC U Barbit Negative Negative [facility] Comment: Drug Abuse Cutoff Concentration: 300 ng/mL POC U Benzo Positive (A) Negative [facility] Comment: Drug Abuse Cutoff Concentration: Cutoff: 300 ng/ mL POC U Cocaine Negative Negative [facility] Comment: Drug Abuse Cutoff Concentration: Cutoff: 300 ng/mL POC U THC Positive (A) Negative [facility] Comment: Drug Abuse Cutoff Concentration: Cutoff: 50 ng/mL POC U Methd Negative Negative [facility] Comment: Drug Abuse Cutoff Concentration: Cutoff: 300 ng/mL POC U Mampht Negative Negative [facility] Comment: Drug Abuse Cutoff Concentration: Cutoff: 1000 ng/mL POC U Opiate Negative Negative [facility] Comment: Drug Abuse Cutoff Concentration: Cutoff: 2000 ng/mL POC U Oxycod Positive (A) Negative [facility] Comment: Drug Abuse Cutoff Concentration: Cutoff: 100 ng/mL Due to the assay cross reactivity betwee n Oxycodone and Opiates, and lower sensitivity compared to GC-MS method, the test results may be falsely positive or falsely negative. Confirmation with concurrent GC-MS results is recommended. POC U PCP Negative Negative [facility] Comment: Drug Abuse Cutoff Concentration: Cutoff: 25 ng/mL POC U TCA Negative Negative [facility] Comment: Drug Abuse Cutoff Concentration: Cutoff: 1000 ng/mL POC U PPX Negative Negative [facility] Comment: Drug Abuse Cutoff Concentration: Cutoff: 300 [...] 1:10 Catch PM CDT PM CDT Narrative [facility] - 1:30 PM CDT The POC Urine Qualitative Drug Screen Pa augusto report is intended for use in clinical monitoring or management of patients. Un confirmed screening results must not be used for non-medical purposes such as legal o r employment-related testing. Rogerio Kramer MD POINT OF CARE TEST ORDERA BLES Performing Organization Address City/State/ZIP Code Phon e Number [facility] Unless otherwise noted, [place] [address] [place] all lab tests performed by: Division of Pathology and Laboratory Medicine Jasmyne[address] Hodges Tetrahydocannabinol (THC), Quantitative, Urine (01/20/2023 12:37 PM CDT) athologist Signature U THC n/a CARLA GRIFFIN GC/MS-[facility] U THC see note CARLA Mcnairp-[facility] Comment: Carboxy-THC Confirmation, U: Carboxy-THC Interpretation: Positive ADDITIONAL INFORMATION: This report is intended for use in clini mari monitoring and management of patients. It is not intend ed for use in employment-related testing. Delta-8 Carboxy-Tetrahydrocannabinol by LC-MS/MS: 672 ng/mL Reference Value: Cutoff: 5 Delta-9 Carboxy-Tetrahydrocannabinol by LC-MS/MS: 42 ng/mL Reference Value: Cutoff: 5 PERFORMING LAB: [facility] [address] [place] [address] Yonathan Guzman M.D. Ph.D. [id number] [facility] n/a [facility] Specimen Anatomical Collection Method Collection Time Receive d Time (Source) Location / / Volume Laterality Urine, Clean 01/20/2023 12:37 01/27/2023 Catch PM CDT 11:34 AM CDT Rogerio Kramer MD URINE ORDERABLES Performing Organization Address City/State/ZIP Code Phon e Number [facility] Unless otherwise noted, [place] [address] [place] all lab tests performed by: Division of Pathology and Laboratory Medicine [facility] X-ray Knee 1 Or 2 Views [...] OU - Both Eyes (12/29/2022 10:51 AM RESIDENTIAL SUPERVISOR) Specimen (Source) Anatomical Location Collection Method / Collectio n Time Received Time / Laterality Volume Narrative Jessica-Suzanne Heredia MD - 12/30/2022 11:50 AM RESIDENTIAL SUPERVISOR Right Eye Threshold was 30-2. The AVF [...] otherwise non specific Suzanne Mcgrath MD OPHTHALMOLOGY IMG ORDERABLES OCT, Optic Nerve - OU - Both Eyes (12/29/2022 10:43 AM RESIDENTIAL SUPERVISOR) Specimen (Source) Anatomical Location Collection Method / Collectio n Time Received Time / Laterality Volume Narrative Suzanne Mcgrath MD - 12/30/2022 11:44 AM RESIDENTIAL SUPERVISOR Normal average thickness of peripapillary retinal nerve fiber layer . With borderline thinning temporally righ t eye Suzanne Mcgrath MD OPHTHALMOLOGY IMG ORDERABLES OCT, Retina - OU - Both Eyes (12/29/2022 10:43 AM RESIDENTIAL SUPERVISOR) Specimen (Source) Anatomical Location Collection Method / Collectio n Time Received Time / Laterality Volume Narrative Suzanne Mcgrath MD - 12/30/2022 11:44 AM RESIDENTIAL SUPERVISOR This result has an attachment that is no t available. Normal macular volume. No sign of serou s retinopathy Suzanne Mcgrath MD OPHTHALMOLOGY IMG ORDERABLES COVID-19 (SARS-CoV-2) PCR-Asymptomatic (12/23/2022 12:01 PM RESIDENTIAL SUPERVISOR) [facility] Method Time Signature COVID19 (SARS Not Detected Not Detected [place] CoV-2) [facility] [place] Comment: This test is a qualitative reverse-trans criptase polymerase chain reaction (RT- PCR) developed for the [employer] system and intended for qualitative detection of SARS CoV-2 RNA in nasopharyngeal a nd oropharyngeal swab specimens collecte d from any individuals, including those suspected o f COVID-19 by their healthcare provider, and those without symptoms or other reasons to suspect COVID-19. A fact sheet for patients provided by the technology consultant ( [employer]) can be rev iewed at: https://www.fda.gov/media/435639/treasure hobson. A fact sheet for Health Care providers is provided by the technology consultant ([employer]) and can be reviewed at: https://www.fda.gov/media/152388/download Results must be interpreted within the c [...] were verified by the [facility], CLIA Accreditation #: [id number] and CAP Accreditation #: [id number]. COVID19 SARS Source END POLISHER Swab [place] MD [facility] COVID19 SARS Indication Pre-Radiation Therapy [facility] Specimen (Source) Anatomical Collection Method Collection Time Re ceived Time Location / / Volume Laterality Nasopharyngeal Swab 12/23/2022 12:01 12/03 PM RESIDENTIAL SUPERVISOR 3:41 PM RESIDENTIAL SUPERVISOR Winter Luu MD MICROBIOLOGY - GENERAL ORDER [place] Performing Organization Address City/State/ZIP Code Phon e Number [facility] Unless otherwise [address] all lab tests performed by: Division of Pathology and Laboratory Medicine [address] OCT, Optic Nerve - OU - Both Eyes (12/15/2022 10:37 AM RESIDENTIAL SUPERVISOR) Specimen (Source) Anatomical Location Collection Method / Collectio n Time Received Time / Laterality Volume Sheridan Angulo MD - 12/17/2022 12:25 PM RESIDENTIAL SUPERVISOR Right Eye Average nerve fiber layer thickness cons istent with normal Left Eye Average nerve fiber layer thickness cons istent with normal Sheridan Alvarez MD OPHTHALMOLOGY IMG ORDERABLES OCT, Retina - OU - Both Eyes (12/15/2022 10:37 AM RESIDENTIAL SUPERVISOR) Specimen (Source) Anatomical Location Collection Method / Collectio n Time Received Time / Laterality Volume Narrative Sheridan Alvarez MD - 12/17/2022 12:25 PM RESIDENTIAL SUPERVISOR Right Eye This is the baseline exam. Findings incl ude normal observations. Left Eye This is the baseline exam. Findings incl ude normal observations. Sheridan Alvarez MD OPHTHALMOLOGY IMG ORDERABLES Fundus Photos - OU - Both Eyes (12/15/2022 10:37 AM RESIDENTIAL SUPERVISOR) Specimen (Source) Anatomical Location Collection Method / Collectio n Time Received Time / Laterality Volume Sheridan Angulo MD - 12/17/2022 12:25 PM RESIDENTIAL SUPERVISOR Right Eye Basline Exam. Sheridan Alvarez MD OPHTHALMOLOGY IMG ORDERABLES 3D Dental Imaging (iCAT) (12/15/2022 8:42 AM RESIDENTIAL SUPERVISOR) Specimen (Source) Anatomical Location Collection Method / Collectio n Time Received Time / Laterality Volume Narrative Systemgenerated, Documentation - 023 8:42 AM RESIDENTIAL SUPERVISOR This procedure requires no interpretatio n from the radiologist. Benito Saini DDS IMG NON DI ORDERABLES [place] Modified Barium Swallow w Speech (12/14/2022 2:37 PM RESIDENTIAL SUPERVISOR) Anatomical Region Laterality Modality Neck Radio Fluoroscopy Specimen (Source) Anatomical Collection Method Collection Time Re ceived Time Location / / Volume Laterality 12/14/2022 2:58 PM RESIDENTIAL SUPERVISOR Impressions 12/14/2022 3:08 PM RESIDENTIAL SUPERVISOR 1. Flash penetration without aspiration seen with thin liquid barium. 2. Please refer to the separately dictat ed speech pathology report for further details and recommendations. Narrative 12/14/2022 3:08 PM RESIDENTIAL SUPERVISOR FULL RESULT: Examination: FL MODIFIED BARIUM SWALLO [...] penetration or aspiration seen with pudding, and fur scraper cker. There was no pharyngeal residue. Pharyngeal contraction was symmetric. Procedure Note Erica Miller V PA - 12/14/2022Form atting of this note [...] ORDERABLES (ABNORMAL) ABG Venous (12/11/2022 6:21 PM RESIDENTIAL SUPERVISOR) P athologist Signature pH Raghavendra 7.40 7.32 - 7.43 [facility] [place] Comment: Results are corrected for a bod y temp of 37C pCO2 Raghavendra 47.6 41.0 - 51.0 mmHg [place] MD [facility] pO2 Raghavendra 52 mmHg [place] MD BL[facility] HCO3 Raghavendra 29 (H) 21 - 28 mmol/L [facility] Base Excess Raghavendra 3 -2 - 3 mmol/L [place] MD [facility] O2 Sat Raghavendra 87 % [facility] Specimen Anatomical Collection Method Collection Time Receive d Time (Source) Location / / Volume Laterality Blood 12/11/2022 6:21 PM 3 6:29 RESIDENTIAL SUPERVISOR PM RESIDENTIAL SUPERVISOR Travis Lopez MD LAB BLOOD ORDERABLES Performing Organization Address City/[facility]/ZIP Code Phon e Number [facility] Unless otherwise noted, [address] all lab tests performed by: Division of Pathology and Laboratory Medicine [address] [place] [address] Ketone Bodies Qualitative (12/11/2022 5:19 PM RESIDENTIAL SUPERVISOR) athologist Signature UA Ketones NEG NEG mg/dL [facility] Specimen Anatomical Collection Method Collection Time Receive d Time (Source) Location / / Volume Laterality Urine 12/11/2022 5:19 PM 3 5:24 RESIDENTIAL SUPERVISOR PM RESIDENTIAL SUPERVISOR Waleska Salinas APN URINE ORDERABLES Performing Organization Address [facility]/ZIP Code Phon e Number [facility] Unless otherwise noted, [address] all lab tests performed by: Division of Pathology and Laboratory Medicine [address] [place] [address] POC Critical (12/11/2022 3:34 PM RESIDENTIAL SUPERVISOR)Only the most recent of2 resultswithin the time period is included. athologist Signature POC Critical See Note POC [facility] Comment Comment: Test performer notified Orderin g Licensed Provider and /or designee of POC Glucose Screen critical Results.. Specimen Anatomical Collection Method Collection Time Receive d Time (Source) Location / / Volume Laterality Blood 12/11/2022 3:34 PM 3 3:34 RESIDENTIAL SUPERVISOR PM RESIDENTIAL SUPERVISOR Travis Lopez MD POINT OF CARE TEST ORDERABLE S Performing Organization Address City/[facility]/ZIP Code Phon e Number POC [facility] Unless otherwise noted, [place] [address] lab tests performed by: Division of Pathology and Laboratory Medicine [address] [place] [address] (ABNORMAL) POC VBG+Lac (12/09/2022 9:36 PM RESIDENTIAL SUPERVISOR) athologist Signature POC VB pH 7.46 (H) [...] Clean Dev Yes POC [facility] Performing Lab [facility] POC TELCO R Comment: [facility], [address] [place] [address]; Lab Direct or: Chula Jacob MD; Waived Point of Care Testing - Gabrielle Mueller MD Specimen Anatomical Collection Method Collection Time Receive d Time (Source) Location / / Volume Laterality Blood 12/09/2022 9:36 PM 9:36 RESIDENTIAL SUPERVISOR PM RESIDENTIAL SUPERVISOR Roberto Carlos Walsh MD POCT ORDERABLES - DEVICE Performing Organization Address City/State/ZIP Code Phon e Number POC [facility] Unless otherwise noted, [place] [address] lab tests performed by: Division of Pathology and Laboratory Medicine [address] [place] [address] Ammonia Level (12/09/2022 6:01 PM RESIDENTIAL SUPERVISOR) athologist Signature Ammonia 18 11 - 51 [place] MD [facility] Specimen Anatomical Collection Method Collection Time Receive d Time (Source) Location / / Volume Laterality Blood 12/09/2022 6:01 PM 6:15 RESIDENTIAL SUPERVISOR PM RESIDENTIAL SUPERVISOR Tammy Mike MD LAB BLOOD ORDERABLES Performing Organization Address City/State/ZIP Code Phon e Number [facility] Unless otherwise noted, [address] all lab tests performed by: Division of Pathology and Laboratory Medicine Brian LOUIS MD, MDA CHRISTINE: Mutation Analysis Precision Panel Report (12/04/2022 10:56 AM RESIDENTIAL SUPERVISOR) Specimen (Source) Anatomical Collection Method Collection Time Re ceived Time Location / / Volume Laterality 12/04/2022 10:56 AM RESIDENTIAL SUPERVISOR Narrative This result has an attachment that is no t available. Lorena LOUIS [facility] (MISSY GRIFFIN) Solid Tumor Genomic Assay Fusions 2018 Interpretation and Report (12/04/2022 10:56 AM RESIDENTIAL SUPERVISOR) Specimen Anatomical Collection Method Collection Time Receive d Time (Source) Location / / Volume Laterality 12/04/2022 10:56 12/04/2022 AM RESIDENTIAL SUPERVISOR 10:56 AM RESIDENTIAL SUPERVISOR Narrative This result has an attachment that is no t available. Lorena [facility] (MISSY GRIFFIN) Molecular Diagnostics Specimen Collection -FFPE (12/04/2022 10:56 AM RESIDENTIAL SUPERVISOR) [facility] gist Method Time Signature Molecular Yes [place] [facility] (Received) CANCER CENTER Jael Bermudez Link [id number] [facility] Block Number BLANK [facility] (Qualitative) [facility] Outside [id number] [facility] (Qualitative) CANCER CENTER Specimen Anatomical Collection Method Collection Time Receive d Time (Source) Location / / Volume Laterality FFPE 12/04/2022 10:56 12/04/2022 AM RESIDENTIAL SUPERVISOR 10:56 AM RESIDENTIAL SUPERVISOR Lorena LOUIS MD NONBLOOD COLLECTIO NS Performing Organization Address City/State/[facility] [[email or web address]] Code Phon e Number [facility] Unless otherwise noted, [address] all lab tests performed by: Division of Pathology and Laboratory Medicine Brian Hodges MRI Skull Base with and without Contrast (11/30/2022 11:12 AM RESIDENTIAL SUPERVISOR) Anatomical Region Laterality Modality Head Magnetic Resonance Specimen (Source) Anatomical Collection Method Collection Time Re ceived Time Location / / Volume Laterality 12/01/2022 9:21 AM RESIDENTIAL SUPERVISOR Impressions 12/01/2022 1:06 PM RESIDENTIAL SUPERVISOR 1. 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 2. Tumor likely involves the lesser wi ng of the left sphenoid bone. 3. No lateral retropharyngeal or visua lized cervical adenopathy. Narrative 12/01/2022 1:06 PM RESIDENTIAL SUPERVISOR FULL RESULT: Examination: MRI SKULL BASE WITH [...] or visuali zed cervical adenopathy. Lorena Hdez [facility] IM MRI ORDERABLES PETCT Contrast Enhanced Initial Treatment Strategy (11/27/2022 3:57 PM RESIDENTIAL SUPERVISOR) Anatomical Region Laterality Modality Whole Body Positron Emission To mography (PET) Specimen (Source) Anatomical Collection Method Collection Time Re ceived Time Location / / Volume Laterality 11/30/2022 8:31 AM RESIDENTIAL SUPERVISOR Impressions 11/30/2022 8:38 AM RESIDENTIAL SUPERVISOR Subtle activity associated with subtle asymmetric fullness in posterior left nasal pharynx is compatible with reported primary tumor. No suspicious activity to suggest regional jeremiah or distant metastases. Narrative 11/30/2022 8:38 AM RESIDENTIAL SUPERVISOR FULL RESULT: Examination: Contrast-Enhanced FDG PET /CT, [...] MD YUN Blood Control (11/26/2022 1:07 PM RESIDENTIAL SUPERVISOR) athologist Signature Molecular Yes [facility] (Received) Specimen Anatomical Collection Method Collection Time Receive d Time (Source) Location / / Volume Laterality Blood 11/26/2022 1:07 PM 9:13 RESIDENTIAL SUPERVISOR AM RESIDENTIAL SUPERVISOR Lorena PEDERSONP MDA IP HP MOLECULAR DIAG IF ORDERABLES Performing Organization Address City/State/ZIP Code Phon e Number [facility] Unless otherwise noted, [place] [address] [place] all lab tests performed by: Division of Pathology and Laboratory Medicine Jasmyne5 [address]ges (ABNORMAL) Vitamin D 25OH (11/26/2022 1:07 PM RESIDENTIAL SUPERVISOR) athologist Signature Vitamin D 25 OH 21 (L) 30 - 100 [place] ng/mL Comment: Reference Range: Deficiency: <10 ng/mL Insufficiency: 10-29 ng/mL Sufficiency: 30-100 ng/mL Potential toxicity: >100 ng/mL Testing performed at [facility], [address] [place] [address] Specimen Anatomical Collection Method Collection Time Receive d Time (Source) Location / / Volume Laterality Blood 11/26/2022 1:07 PM 3 1:19 RESIDENTIAL SUPERVISOR PM RESIDENTIAL SUPERVISOR Lorena Kayla Hdez EXECUTIVE CHEF LAB BLOOD ORDERABLES Performing Organization Address City/[facility]/ZIP Code Phon e Number [address] (ABNORMAL) Uric Acid (11/26/2022 1:07 PM RESIDENTIAL SUPERVISOR) athologist Signature Uric Acid 6.5 (H) 2.4 - 5.7 [place] mg/dL Comment: Testing performed at [facility], [address] [place] [address] Specimen Anatomical Collection Method Collection Time Receive d Time (Source) Location / / Volume Laterality Blood 11/26/2022 1:07 PM 3 1:19 RESIDENTIAL SUPERVISOR PM RESIDENTIAL SUPERVISOR Lorena Kayla Hdez EXECUTIVE CHEF LAB BLOOD ORDERABLES Performing Organization Address [facility] Phon e Number [address] TSH (11/26/2022 1:07 PM RESIDENTIAL SUPERVISOR)Only the most recent of2 resultswithin the time period is included. athologist Signature TSH 1.78 0.27 - 4.20 [place] mcunit/mL Comment: Testing performed at [facility], [address] [place] [address] Specimen Anatomical Collection Method Collection Time Receive d Time (Source) Location / / Volume Laterality Blood 11/26/2022 1:07 PM 3 1:19 RESIDENTIAL SUPERVISOR PM RESIDENTIAL SUPERVISOR Lorena Kayla Hdez EXECUTIVE CHEF LAB BLOOD ORDERABLES Performing Organization Address City/[facility]/ZIP Code Phon e Number [address] Free T4 (11/26/2022 1:07 PM RESIDENTIAL SUPERVISOR)Only the most recent of2 resultswithin the time period is included. athologist Signature T4 Free 1.11 0.93 - 1.70 [place] ng/dL Comment: [facility] [facility] [address], [place] [address] Specimen Anatomical Collection Method Collection Time Receive d Time (Source) Location / / Volume Laterality Blood 11/26/2022 1:07 PM 1:19 RESIDENTIAL SUPERVISOR PM RESIDENTIAL SUPERVISOR Lorena Hdez EXECUTIVE CHEF LAB BLOOD ORDERABLES Performing Organization Address City/[facility] [[email or web address]] [place] [address] [place] [address] NTRK3 Fusion Material Request (11/26/2022 12:43 PM RESIDENTIAL SUPERVISOR) Component Value Ref Test Analysis Performed At [facility] Range Method Time Signature Archived The test is to be 12/04/2022 [facility] Material performed on 8:01 AM RESIDENTIAL SUPERVISOR tissue from case [id number]. The case report, slides, and blocks for [...] Volume Laterality Tissue 11/26/2022 12:43 11/26/2022 PM RESIDENTIAL SUPERVISOR 12:43 PM RESIDENTIAL SUPERVISOR Lorena CHAPMAN [facility] IP AP BIOMARKERS Performing Organization Address City/[facility]/ZIP Code Phon [place] [address] 1515 Michelle Hodges MD NTRK2 Fusion Material Request (11/26/2022 12:43 PM RESIDENTIAL SUPERVISOR) Component Value Ref Test Analysis Performed At [facility] gist Range Method Time Signature Archived The test is to be 12/04/2022 [facility] Material performed on 8:01 AM RESIDENTIAL SUPERVISOR tissue from case [id number]. The case report, slides, and blocks for [...] Volume Laterality Tissue 11/26/2022 12:43 11/26/2022 PM RESIDENTIAL SUPERVISOR 12:43 PM RESIDENTIAL SUPERVISOR Lorena Hdez [facility] IP AP BIOMARKERS Performing Organization Address [facility] Phon [place] [address] Brian Hodges MD NTRK1 Fusion Material Request (11/26/2022 12:43 PM RESIDENTIAL SUPERVISOR) Component Value Ref Test Analysis Performed At [facility] gist Range Method Time Signature Archived The test is to be 12/04/2022 [facility] Material performed on 8:01 AM RESIDENTIAL SUPERVISOR tissue from case [id number]. The case report, slides, and blocks for [...] Volume Laterality Tissue 11/26/2022 12:43 11/26/2022 PM RESIDENTIAL SUPERVISOR 12:43 PM RESIDENTIAL SUPERVISOR Lorena Hdez [facility] IP AP BIOMARKERS Performing Organization Address [facility] Phon e Number [facility] [place] [address] Brian Hodges MD ERBB2 Mutation Analysis Material Request (11/26/2022 12:43 PM RESIDENTIAL SUPERVISOR) Component Value Ref Test Analysis Performed At [facility] [employer] Range Method Time Signature Archived The test is to be 12/04/2022 [facility] Material performed on 8:01 AM RESIDENTIAL SUPERVISOR tissue from case [id number]. The case report, slides, and blocks for [...] Volume Laterality Tissue 11/26/2022 12:43 11/26/2022 PM RESIDENTIAL SUPERVISOR 12:43 PM RESIDENTIAL SUPERVISOR Lorena [place] IP AP BIOMARKERS Performing Organization Address [facility] e [place] [address] 1515 Michelle Hodges MD ALK Mutation Analysis Material Request (11/26/2022 12:43 PM RESIDENTIAL SUPERVISOR) Component Value Ref Test Analysis Performed At [facility] [employer] Range Method Time Signature Archived The test is to be 12/04/2022 [facility] Material performed on 8:02 AM RESIDENTIAL SUPERVISOR tissue from case [id number]. The case report, slides, and blocks for [...] Volume Laterality Tissue 11/26/2022 12:43 11/26/2022 PM RESIDENTIAL SUPERVISOR 12:43 PM RESIDENTIAL SUPERVISOR Lorena CHAPMAN [facility] IP AP BIOMARKERS Performing Organization Address [facility]/State/ZIP Code Ph[place] [address] 1515 Michelle Hodges MD MTOR Mutation Material Request (11/26/2022 12:43 PM RESIDENTIAL SUPERVISOR) Component Value Ref Test Analysis Performed At [facility] Range Method Time Signature Archived The test is to be 12/04/2022 [facility] Material performed on 8:01 AM RESIDENTIAL SUPERVISOR tissue from case [id number]. The case report, slides, and blocks for [...] Volume Laterality Tissue 11/26/2022 12:43 11/26/2022 PM RESIDENTIAL SUPERVISOR 12:43 PM RESIDENTIAL SUPERVISOR Lorena Kayla Hdez EXECUTIVE CHEF [facility] IP AP BIOMARKERS Performing Organization Address City/State/ZIP Code Phon e Number [facility] [place] [address] 1515 Michelle Hodges MD PTEN Mutation Material Request (11/26/2022 12:43 PM RESIDENTIAL SUPERVISOR) Component Value Ref Test Analysis Performed At [facility] Method Time Signature Archived The test is to be 12/04/2022 [facility] Material performed on 8:02 AM RESIDENTIAL SUPERVISOR tissue from case [id number]. The case report, slides, and blocks for [...] Volume Laterality Tissue 11/26/2022 12:43 11/26/2022 PM RESIDENTIAL SUPERVISOR 12:43 PM RESIDENTIAL SUPERVISOR Lorena [place] IP AP BIOMARKERS Performing Organization Address City/State/ZIP Code Phon e Number [facility] [place] [address] 1515 Michelle Hodges MD EGFR Mutation Material Request (11/26/2022 12:43 PM RESIDENTIAL SUPERVISOR) Component Value Ref Test Analysis Performed At [facility] gist Range Method Time Signature Archived The test is to be 12/04/2022 [facility] Material performed on 8:02 AM RESIDENTIAL SUPERVISOR tissue from case [id number]. The case report, slides, and blocks for the cited accession were retrieved from archives. The pathologist examined the candidate H&E slide and selected the block appropriate to the specifications of the ordered molecular analysis. Unstained slides and H&E slide were prepared and forwarded to [facility] where the subject molecular test will be performed. Results will be reported separately. Pathologist Electronically 12/04/2022 [facility] LABS Signature signed by Larissa March 8:02 AM RESIDENTIAL SUPERVISOR MD Mitchell on 12/04/22 8:01 AM Specimen Anatomical Collection Method Collection Time Receive d Time (Source) Location / / Volume Laterality Tissue 11/26/2022 12:43 11/26/2022 PM RESIDENTIAL SUPERVISOR 12:43 PM RESIDENTIAL SUPERVISOR Lorena Hdez [facility] AP BIOMARKERS Performing Organization Address City/State/ZIP Code Phon e Number [facility] [place] [address] 1515 Michelle Hodges IHC PD-L1 Material Request (11/26/2022 12:43 PM RESIDENTIAL SUPERVISOR) Specimen Anatomical Collection Method Collection Time Receive d Time (Source) Location / / Volume Laterality Tissue 11/26/2022 12:43 11/26/2022 PM RESIDENTIAL SUPERVISOR 12:43 PM RESIDENTIAL SUPERVISOR Lorena Hdez [facility] IP AP BIOMARKERS Performing Organization Address City/State/ZIP Code Phon e Number [facility] [place] [address] 1515 Michelle Hodges IHC HER2/arcenio Material Request (11/26/2022 12:43 PM RESIDENTIAL SUPERVISOR) Specimen Anatomical Collection Method Collection Time Receive d Time (Source) Location / / Volume Laterality Tissue 11/26/2022 12:43 11/26/2022 PM RESIDENTIAL SUPERVISOR 12:43 PM RESIDENTIAL SUPERVISOR Lorena CHAPMAN [facility] IP AP BIOMARKERS Performing Organization Address City/State/ZIP Code Phon e Number [facility] [place] [address] 1515 [place] Insulin-Like Growth Factor I (11/17/2022 12:11 PM RESIDENTIAL SUPERVISOR) [facility] Insulin-Like 154 40 - 217 [facility] Growth Factor ng/mL [facility] [place] IGF Z-score 1.04 -2.0 - 2.0 [facility] Comment: ADDITIONAL INFORMATIO N This test was developed and its performa nce characteristics determined by [facility] in a manner co nsistent with CLIA requirements. This test has not been sisi ared or approved by the U.S. Food and Drug Administration. Test Performed by: [place] [address] Inventory Control Manager: Yonathan Guzman M.D. Ph. D.; CLIA# [id number] Specimen Anatomical Collection Method Collection Time Receive d Time (Source) Location / / Volume Laterality Blood 11/17/2022 12:11 11/17/2022 PM RESIDENTIAL SUPERVISOR 12:13 PM RESIDENTIAL SUPERVISOR Red Berman HOME CONNECT LPN LAB BLOOD ORDERABLES Performing Organization Address City/[facility]/ZIP Code Phon e Number [facility] CANCER Unless otherwise noted, [place] [address] CENTER all lab tests performed by: Division of Pathology and Laboratory Medicine [address] Hod[address] (ABNORMAL) ACTH (11/17/2022 12:11 PM RESIDENTIAL SUPERVISOR) [facility] ACTH 5 (L) 7 - 63 pg/mL [place] Comment: Results greater than 1826 pg/mL may not be reliable due to matrix effect with extended dilution as it exceeds the technology consultant's recommended limit. ACTH reference intervals are established for the morni ng hours from 7-10 am. Due to the circad katie rhythm of ACTH levels in plasma, the sample col lection time must be noted. Caution should be exercised when interpreting such values and done in conjunction with clinical context. [facility], [address], [place] [address] Specimen Anatomical Collection Method Collection Time Receive d Time (Source) Location / / Volume Laterality Blood 11/17/2022 12:11 11/17/2022 PM RESIDENTIAL SUPERVISOR 12:12 PM RESIDENTIAL SUPERVISOR Narrative [place] - 11/17/2022 12:53 PM RESIDENTIAL SUPERVISOR This lab cannot be scheduled at the following locations due to collection/proccessing restrictions: [place] - REGLC DIAG LAB CTR [place] - REGSL DIAG LAB CTR [place] - REGWL DIAG LAB CTR [facility] REG DAIG LAB CTR DI [facility] DI DIAG LAB CTR [place] [facility] DIAG LAB CTR Red Berman APN LAB BLOOD ORDERABLES Performing Organization Address City/[facility] [[email or web address]] [place] [address] [address] Prolactin (11/17/2022 12:11 PM RESIDENTIAL SUPERVISOR) [facility] Prolactin 9.3 4.8 - 23.3 [facility] ng/mL [facility] Comment: Results greater than 4700.0 ng/ mL may not be reliable due to matrix effect with extended dilution as it exceeds the technology consultant s recommended limit. Caution should be e xercised when interpreting such values and done in conjunction with clinical contex t. Specimen Anatomical Collection Method Collection Time Receive d Time (Source) Location / / Volume Laterality Blood 11/17/2022 12:11 11/17/2022 7:44 PM RESIDENTIAL SUPERVISOR PM RESIDENTIAL SUPERVISOR Red Berman APN LAB BLOOD ORDERABLES Performing Organization Address City/State/[facility] Phon e Number [facility] Unless otherwise noted, [place] [address] CENTER all lab tests performed by: Division of Pathology and Laboratory Medicine [id number] Michelle Hodges Estradiol level (11/17/2022 12:11 PM RESIDENTIAL SUPERVISOR) athologist [facility] Estradiol <11 pg/mL [facility] [place] Comment: Reference Ranges: Adult Females: Follicular Phase [...] Laterality Blood 11/17/2022 12:11 11/17/2022 7:44 PM RESIDENTIAL SUPERVISOR PM RESIDENTIAL SUPERVISOR Red Berman APN LAB BLOOD ORDERABLES Performing Organization Address City/State/ZIP Code Phon e Number [facility] Unless otherwise noted, [place] [address] [place] all lab tests performed by: Division of Pathology and Laboratory Medicine [facility] [place] T3 (11/17/2022 12:11 PM RESIDENTIAL SUPERVISOR) athologist Signature T3 Total 88 80 - 200 [facility] ng/dL Comment: Performed at [facility], [address] [place] [address] Specimen Anatomical Collection Method Collection Time Receive d Time (Source) Location / / Volume Laterality Blood 11/17/2022 12:11 11/17/2022 PM RESIDENTIAL SUPERVISOR 12:12 PM RESIDENTIAL SUPERVISOR Red Berman APN LAB BLOOD ORDERABLES Performing Organization Address City/[facility]/ZIP [facility] Phon e Number [address] Testosterone Level (11/17/2022 12:11 PM RESIDENTIAL SUPERVISOR) athologist Signature Testoster Tot <3 3 - 41 [place] ng/dL Comment: Reference Ranges: Male: Age 20 - 49 249 - 836 Age >=50 1 93 - 740 Female: Age 20 - 49 8 - 48 Age >=50 3 - 41 Testing performed at [facility], [address] [place] [address] Specimen Anatomical Collection Method Collection Time Receive d Time (Source) Location / / Volume Laterality Blood 11/17/2022 12:11 11/17/2022 PM RESIDENTIAL SUPERVISOR 12:12 PM RESIDENTIAL SUPERVISOR eRd Berman APN LAB BLOOD ORDERABLES Performing Organization Address City/[facility] [place] [address] [address] LH (11/17/2022 12:11 PM RESIDENTIAL SUPERVISOR) athologist Signature LH 15.8 mIU/mL [facility] Comment: Female Luteinizing Hormone Reference Ran ges: LOW HIGH Follicular 2.4 12.6 Ovulation 14.0 95.6 Luteal 1.0 11.4 Postmenopause 7.7 58.5 Specimen Anatomical Collection Method Collection Time Receive d Time (Source) Location / / Volume Laterality Blood 11/17/2022 12:11 11/17/2022 7:44 PM RESIDENTIAL SUPERVISOR PM RESIDENTIAL SUPERVISOR Red Berman HOME CONNECT LPN LAB BLOOD ORDERABLES Performing Organization Address City/[facility]/ZIP Code Phon e Number [facility] Unless otherwise noted, [address] all lab tests performed by: Division of Pathology and Laboratory Medicine Brian Hodges FSH Level (11/17/2022 12:11 PM RESIDENTIAL SUPERVISOR) athologist Signature FSH 31.4 mIU/mL [facility] Comment: Female Follicle Stimulating Hormone Refe rence Ranges: L OW HIGH Follicular 3.5 12.5 Ovulation 4.7 21.5 Luteal 1.7 7.7 Postmenopause 25.8 134.8 Specimen Anatomical Collection Method Collection Time Receive d Time (Source) Location / / Volume Laterality Blood 11/17/2022 12:11 11/17/2022 7:44 PM RESIDENTIAL SUPERVISOR PM RESIDENTIAL SUPERVISOR Red Berman HOME CONNECT LPN LAB BLOOD ORDERABLES Performing Organization Address City/State/ZIP [facility] Phon e Number [facility] Unless otherwise noted, [address] all lab tests performed by: Division of Pathology and Laboratory Medicine Brian Hodges (ABNORMAL) Cortisol, Total (11/17/2022 12:11 PM RESIDENTIAL SUPERVISOR) athologist Signature Cortisol, 1.67 (L) 4.80 [facility] Total 19.50 mcg/dL Comment: Cortisol reference intervals [...] (4-8pm) (2.5 - 11.9) Testing performed at [facility], [address] [place] [address], [place] [address] Specimen Anatomical Collection Method Collection Time Receive d Time (Source) Location / / Volume Laterality Blood 11/17/2022 12:11 11/17/2022 PM RESIDENTIAL SUPERVISOR 12:12 PM RESIDENTIAL SUPERVISOR Red Berman HOME CONNECT LPN LAB BLOOD ORDERABLES Performing Organization Address City/State/[place] [address] [place] [address] Pathology Outside Interpretation (10/16/2022) Component Value Ref Test Analysis Performed Pathologis t Range Method Time At [facility] Materials Accession#, Stained, Block, Unstained Collected Received 11/27/2022 [facility] Received A. [id number], 7 SS, 1 BLOCKS, 0 USS 10/16/2022 11/24/2022 5:08 PM RESIDENTIAL SUPERVISOR Addendum 1 At the request of the donell machado physician the following studies were performed and interpreted at [facility]. 11/27/2022 [facility] Addendum 5:08 PM electronic ally The tumor cells are negative for Her2 (0%) by immunohi stochemical analysis. 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 MD Gerald on 11/27/2022 at PD-L1 (Clone 22C3, [employer]) Combine d Positive Score (CPS): is less than 1 5:08 PM Assay Information: This assa y is manufactured by [employer] and uses a monoclonal anti-PD-L1, clone 22C3. It is performed on formalin-fixed paraffin- embedded tissue using an [employer] autostainer a nd polymer based detection k it, as specified by the technology consultant. It is approved for use as a operations assistant diagnostic for specific therapies on certain tumor [...] is defined as CPS 100. Diagnosis Outside ([id number], 7 SS, 1 BLOCKS, 0 USS, colle cted on 10/16/2022): 11/27/2022 [facility] Electronically 5:08 PM signed by Nasopharynx, biopsy: RESIDENTIAL SUPERVISOR Ashleigh ADENOID CYSTIC CARCINOMA, CRIBRIFORM TYPE see comment MD Gerald on 11/26/2022 at EARL/SALEEM 9:43 AM Comment Submitted 11/27/2022 [facility] immunohistochemical 5:08 PM stains performed by RESIDENTIAL SUPERVISOR referring institution show that CK7 highlights the epithelial cells, and p63 and p40 highlights the myoepithelial cells. The morphology and immunophenotype is supportive of this classification. Biomarker Tumor block: 11/27/2022 [facility] Block(s) [id number] 5:08 PM RESIDENTIAL SUPERVISOR Disclaimer "Some tests reported 11/27/2022 [facility] here may have been 5:08 PM developed and RESIDENTIAL SUPERVISOR performance characteristics determined by [facility] Pathology and Laboratory Medicine. These tests have not been specifically cleared or approved by the U.S. Food and Drug Administration. If applicable, controls were reviewed and showed appropriate reactivity." Specimen (Source) Anatomical Collection Method Collection Time Re ceived Time Location / / Volume Laterality Tissue 10/16/2022 11/24/2022 3:02 PM RESIDENTIAL SUPERVISOR Alexa Alvarez MD LAB PATHOLOGY ORDERABLES Performing Organization Address City/State/ZIP Code Phon e Number [facility] [place] [address] [address] [place] after 03/19/2022 Insurance Payer Benefit Plan / Subscriber ID Effective Phone Address T ype Group Dates MEDICARE MEDICARE PART A [id number] 2010-Pres [phone] [place] Medicare AND B ent 782 SOLUTIONS [address] [place] [id number] [place] [id number] 2022-Pres [address] Medicaid TRADITIONAL TRADITIONAL [place] [id number] [place] [address] Advance Directives Code Status Date Activated Date Inactivated Comments Full Code 02/06/2023 1:33 AM 02/16/2023 6:41 PM Code Status Date Activated Date Inactivated Comments Full Code 01/26/2023 5:50 PM 02/01/2023 8:34 PM Full Code 01/11/2023 10:19 PM 01/18/2023 9:39 PM Full Code 12/09/2022 10:42 PM 12/15/2022 9:30 PM Care Teams Contour Sander Relationship Specialty Start Date End Date ObandoBina PCP - External Otolaryngology 11/12/22 MD Jaona Referring [address] [place] [address] [phone] Kenya Agarwal MD PCP - General Head and Neck Surgery 11/12/[address] [place] [address] [id number] Trent Irving MD Family Practice 11/26/[address] [place], [place] [id number] Randall Sheriff [facility] Practice 11/26/22 MD Maciej [address] [place], [place] [address] Vignesh Waddell, Pulmonary Medicine 11/26/22 [address] [place] [address] Naa Miller, Cardiology 11/26/[address] [address] Tapan Harper, Gastroenterology 11/26/22 [address] [place], [place] [address] Rafael Rosas, Ophthalmology 11/26/22 [address] [place] [phone] Suzanne Mcgrath MD Consulting Physician Ophthalmology 12/29/[address] [place] [address]
[2023-03-19 20:05] LABS: Absolute Lymphocytes (CBC) 1.3 K/uL (0.7-4.9); Hematocrit 44.6 % (36.0-45.0); MCV 96.3 fL (80-100); RBC Red Blood Cell Count 4.63 M/uL (3.86-4.86)
[2023-03-19 20:08] LABS: Protime INR 1.06
[2023-03-19] MEDS ORDERED: PROMETHAZINE INJ 25 MG/ML AMP ONE (20:10)
[2023-03-19] MEDS ORDERED: NA CHLORIDE 0.9% 1,000 ML ONE (20:11)
[2023-03-19] MEDS ORDERED: NA CHLORIDE 0.9% 250 ML ONE (20:11)
[2023-03-19] MEDS ORDERED: FENTANYL CITR 100 MCG/2 ML ONE (20:11)
--- OUTSIDE RECORDS SUMMARY | 2023-03-19 20:27 | XMS REPORT | Continuity of Care Document ---
:1965 Author Organization [facility] t Address [address] [place] [address] Care Team Providers Name Role Phone JARON IRVING Primary Care Physician Unavailable SYSTEM, PROVIDER NOT IN Attending Clinician Unavailable Tapan Harper Attending Clinician Unavailable Zacarias Rodriguez Attending Clinician Unavailable Vaibhav Rosario MD Attending Clinician Lorena Chance Attending Clinician Kenya Agarwal MD Attending Clinician Lian Jaramillo RD Attending Clinician KENYA AGARWAL Attending Clinician Unavailable LORENA HDEZ Attending Clinician Unavailable Tita Kwon RN Attending Clinician Unavailable Miguel Gordon MD Attending Clinician Deyanira Wright RN Attending Clinician Unavailable Cony Santillan APN Attending Clinician Jaziel GRIFFIN, Nereida Attending Clinician Tonny GARBER, Anthony Benjamin Attending Clinician Unavailable Ismael GRIFFIN, Deneen Eckert Attending Clinician Rachid GRIFFIN, Felisa Attending Clinician Brooks GRIFFIN, Romana Attending Clinician Esthela GRIFFIN, Amanda Attending Clinician Estella GRIFFIN, Thao V. Attending Clinician Bridget GRIFFIN, Derrick Attending Clinician Felipe GRIFFIN, Kofi Vega Attending Clinician [phone] Phyllis Rangel MD, Ashleigh Attending Clinician [phone] KOFI WANG Attending Clinician Unavailable Jus GRIFFIN, Winter Rubalcava Attending Clinician Teo GRIFFIN, Dustin Attending Clinician Will [facility] CAR UNLOADER, Charla Eckert Attending Clinician DERRICK GILL Attending Clinician Unavailable THAO ROMERO V. Attending Clinician Unavailable VAIBHAV ROSARIO Attending Clinician Unavailable Jad Patel MD Attending Clinician Jaycee Hancock MD Attending Clinician Brock Agrawal MD Attending Clinician Elian Oneal MD Attending Clinician [phone] Rohan VERNON, Glenda Peñaloza Attending Clinician ELIAN ONEAL Attending Clinician Unavailable Jonathan GARBER, Felisa Costa Attending Clinician JAYCEE HANCOCK Attending Clinician Unavailable Rogerio Kramer MD Attending Clinician [phone] Nereida Ferrer Attending Clinician Unavailable NEREIDA SHERIFF Attending Clinician Unavailable Regulo GRIFFIN, Reva Attending Clinician Nico GRIFFIN, Roberto Carlos Attending Clinician Estella GRIFFIN, Chung Garcia Attending Clinician [phone] Lee MCMAHAN, Jusraphine Attending Clinician BROCK AGRAWAL Attending Clinician Unavailable RADIOLOGY Attending Clinician Unavailable Sherif [facility] CAR UNLOADER, Mukund Cervantes Attending Clinician [phone] Orlin GRIFFIN, Karen Attending Clinician Geo GARBER, Brittni Benjamin Attending Clinician Unavailable Alcides GRIFFIN, Suzanne Attending Clinician Ankita KEYESS, Otilia Attending Clinician Lj BARRERA, Dony Attending Clinician Lan GALE, Lindy Sotelo Attending Clinician [phone] Dimas GARBER, Maria Luz Lund Attending Clinician Unavailable LUUWINTER Attending Clinician Unavailable Alok MEDINA, Rosmery Costa Attending Clinician Maicol GRIFFIN, Mer Peñaloza Attending Clinician Graciela Adorno MD Attending Clinician Jessica GRIFFIN, Travis Attending Clinician RON ABI Attending Clinician Unavailable FAREED DAVIS Attending Clinician Unavailable Dawson OD, Maya Attending Clinician Martínez GRIFFIN, Wilder Attending Clinician Unavailable Jason GARBER, Triston Rollins Attending Clinician Unavailable Emmanuel GRIFFIN, Matthew Choe Attending Clinician [phone] Red Posada APN Attending Clinician Louis MEDINA, Tracey Attending Clinician Enrique GRIFFIN, David Alvarado Attending Clinician Antonio GRIFFIN, Alexa Attending Clinician Jeffy GARBER, Ofe Bourgeois Attending Clinician Olivier GRIFFIN, Berkley Attending Clinician Unavailable Mateusz GARBER, Elana Attending Clinician Doctor Unassigned, [place] Attending Clinician Unavailable RED POSADA Attending Clinician Unavailable Chloe Lopez Attending Clinician Lee Monique MD Attending Clinician Lab, Ang - Db Attending Clinician Unavailable CHINMAY OLSEN Attending Clinician Unavailable BLANCHE SUAREZ Attending Clinician Unavailable Blanche Butts Attending Clinician Pob, Adc Lab Main Attending Clinician Unavailable LOBITO RAI Attending Clinician Unavailable Angelica MATHIS Attending Clinician Unavailable Angelica Mathis MD Attending Clinician Angelica MATHIS Attending Clinician Unavailable GERMAIN CALERO Attending Clinician Unavailable DEWAYNE WISE Attending Clinician Unavailable AguilaLove Attending Clinician Unavailable JACQUELIN GONZALEZ Attending Clinician Unavailable Lacy MANAGER SUBWAY, Jacquelin Alvarado Attending Clinician DEWAYNE WISE Attending Clinician Unavailable Mason GRIFFIN, Dewayne Stanley Attending Clinician Adam Sirera MD Attending Clinician Rishabh GRIFFIN, [place] Kellogg Attending Clinician [phone] Germain Ortega Attending Clinician Luan Coughlin MD Attending Clinician Mimi Attending Clinician Unavailable Nurse, Adc Pob Immunization Attending Clinician Unavailable Miguel Patel DO Attending Clinician MIGUEL PATEL Attending Clinician Unavailable Jaimee Ferrer LMSW Attending Clinician Cbc, Medicare Wellness Ang Fam Attending Clinician UnavailDUSTIN Alegre Attending Clinician Unavailable Daniel GARBER, Mary Alejandre [...] Clinician Unavailable TRAVIS RAMIREZ Attending Clinician Unavailable Travis Ramirez MD Attending Clinician ZACARIAS RODRIGUEZ Attending Clinician Unavailable John Casiano Attending Clinician Kimberly Ng Attending Clinician Alexa Guerrero Attending Clinician Jaron Irving H Admitting Clinician Unavailable THAO ROMERO V. Admitting Clinician Unavailable JAYCEE HANCOCK Admitting Clinician Unavailable CHUNG ROMERO Admitting Clinician Unavailable GRACIELA ADORNO Admitting Clinician Unavailable Aguilamarsha_M Admitting Clinician Unavailable JACQUELIN GONZALEZ Admitting Clinician Unavailable DEWAYNE WISE Admitting Clinician Unavailable Lm_R Admitting Clinician Unavailable ZACARIAS RODRIGUEZ Admitting Clinician Unavailable Alexa Guerrero Admitting Clinician Payers Payer Name Policy Type Policy Number Effective Date Expiration Date S carlos MEDICARE PART A [id number] 2010 \\T\\ B 00:00:00 [place]ID [place] [id number] 2012 00:00:00 MEDICARE A B [id number] 2010 00:00:00 [place] [id number] 2021 00:00:00 [place] [id number] 2010 [place] 00:00:00 [place] [id number] [place] Problems Condition Condition Condition Status Onset Resolution Last Treating Co mments Source Name Details Category Date Date Treatment Clinician Date Febrile Febrile Disease Active Univers neutropeni neutropeni 4-08 it y of a a 00:00: [place] 00 MD Liane olivier [facility] Shortness Shortness Disease Active Uni vers of breath of breath 4-08 ity of 00:00: [place] 00 MD Liane olivier [facility] Central Central Disease Active Univers line line 4-08 [place] of associated [place] bloodstrea bloodstrea 00 MD napoleon Rob infection infection [facility] Disorder Disorder Disease Active Unive rs of fluid of fluid 408 ity of AND/OR AND/OR 00:00: [place] electrolyt electrolyt 00 MD e e Anderso olivier [facility] 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 [place] 00 MD Liane olivier [facility] Intractabl Intractabl Disease Active U nivers e nausea e nausea 4-07 ity of and and 00:00: [place] vomiting vomiting 00 MD Liane olivier [facility] Hematochez Hematochez Disease Active U nivers ia ia 3-29 ity of 00:00: [place] 00 MD Liane olivier [facility] Abdominal Abdominal Disease Active Uni vers pain, pain, 3-28 ity of epigastric [place]igastric [place] 00 [place] Liane olivier [facility] 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 An teeteeso on on n [facility] Insulin Insulin Disease Active Univers resistance resistance 3-20 it y of 00:00: [place] 00 MD Liane olivier [facility] History of History of Disease Active U nivers fall fall 3-14 ity of 00:00: [place] 00 MD Liane olivier [facility] 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 00:00: [place] with with 00 hyperglyce hyperglyce An sid moncho [facility] Hemoglobin Hemoglobin Disease Active U nivchrissy A1c A1c 3-14 ity of greater greater 00:00: [place] than 10 than 10 00 percent percent Anderso indicating indicating n poor poor Cancer diabetic diabetic Center control control Malnutriti Malnutriti Disease Active U nivers on of on of 3-14 ity of moderate moderate 00:00: [place] degree degree 00 MD Liane olivier [facility] Mucositis Mucositis Disease Active Uni vers due to due to 3-13 ity of antineopla antineopla [place] stic stic 00 therapy therapy Lauri soy [facility] Swallowing Swallowing Disease Active U nivers painful painful 3-13 ity of 00:00: [place] 00 MD Liane olivier [facility] group home group home Disease Active Uni vers current current 2-09 ity of use of use of 00:00: [place] systemic systemic 00 steroid steroid [facility] Current Current Disease Active Univers use of use of 2-09 ity of insulin insulin 00:00: [place] 00 MD Liane olivier [facility] Adverse Adverse Disease Active Univers effect of effect of 2-09 ity of glucocorti glucocorti [place] coids and coids and 00 synthetic synthetic Bandar rso analogues analogues [facility] Headache Headache Disease Active Unive rs 2-08 ity of 00:00: [place] 00 MD Liane olivier [facility] 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 00:[place] of of 00 nasopharysoy nasopheunice An derso x, NOS x, [facility] SOB SOB Disease Active 2021-11 Univers (shortness (shortness 0-25 it y of of breath) of breath) [place] [facility] [place] New daily New daily Disease Active 2021-11 Uni vers persistent persistent 0-25 it y of headache headache 00:00: [place] 00 [facility] Dizziness Dizziness Disease Active 2021-11 Uni vers 0-25 ity of 00:00: [place] 00 [facility] Wheezing Wheezing Disease Active 2021-11 Unive rs 0-25 ity of 00:00: [place] 00 [facility] Diabetes Diabetes Problem Active 2020-11 Blanco [...] sciatica sciatica Gastroesop Gastroesop Disease Active U charis hageal [...] BACK Diagnosis Active 2018-04-04 Memoria PAIN PAIN 5- 13:34:00 l Active 00:00: [place] 03/30/2018 00 Yossi Seay REFLUX-K21 REFLUX-K2 Diagnosis Active 2014-112015-11-08 Memoria .9 1.9 Active 12-19 12:57:00 l 00:00: [place] n 5 [place] ACS (acute ACS (acute Disease Active U nivers coronary coronary 3-16 ity of syndrome) syndrome) [place] Cough Cough Problem Resolve 2019-06-28 Mem oria (finding) (finding) d 15:29:48 l Resolved [place] Problem 06/28/2019 2 weeks ago,, cough, cold , flu; better now [facility] [place] Infection Problem Resolve 2019-06-28 M emoria of ear Infection d 15:29:48 l (disorder) of ear Ulises n (disorder) Resolved Problem 06/28/2019 [facility] [place] Irregular Problem Resolve 2019-06-28 M emoria heart beat Irregular d 15:29:48 l (finding) heart beat Her pascal (finding) Resolved Problem 06/28/2019 [facility] [place] Muscle Muscle Problem Resolve 2019-06-28 Mem oria pain pain d 15:29:48 l (finding) (finding) Herm flakita Resolved Problem 06/28/2019 [facility] [place] Anxiety Anxiety Problem Active 2019-06-28 Me moria (finding) (finding) 15:29:48 l Active [place] Problem 06/28/2019 [facility] [place] Backache Backache Problem Active 2019-06-28 Memoria (finding) (finding) 15:29:48 l Active [place] Problem 06/28/2019 [facility] [place] Gout Gout Problem Active 2019-06-28 Memor ia (disorder) (disorder) 15:29:48 l Active [place] Problem 06/28/2019 [facility] [place] Hypertensi Hypertens Problem Active 2019-06-28 Memoria ve rosales 15:29:48 l disorder, disorder, Herm flakita systemic systemic arterial arterial (disorder) (disorder) Active Problem 06/28/2019 [facility] [place] Insomnia Insomnia Problem Active 2019-06-28 Memoria (disorder) (disorder) 15:29:48 l Active [place] Problem 06/28/2019 [facility], [place] 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 15:29:48 l (disorder) (disorder) He rmann Active Problem 06/28/2019 [facility] [place] Lumbar Lumbar Problem Active 2019-06-28 [place] radha radiculopa radiculopa 15:29:48 l thy thy [place] (disorder) (disorder) Active Problem 06/28/2019 [facility] Osteoarthr Osteoarth Problem Active 2019-06-28 Memoria itis ritis 15:29:48 l (disorder) (disorder) He rmann Active Problem 06/28/2019 [facility] Peripheral Periphera Problem Active 2019-06-28 Memoria nerve l nerve 15:29:48 l disease disease [place] (disorder) (disorder) Active Problem 06/28/2019 [facility] Sleep Sleep Problem Active 2019-06-28 Memor ia apnea apnea 15:29:48 l (finding) (finding) Herm flakita Active Problem 06/28/[address] 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 maxnutrsiri GRIFFIN on on [facility] Allergies, Adverse Reactions, Alerts Allergy Allergy Status Severity Reaction(s) Onset Inactive Treating Comm ents Source Name Type Date Date Clinician PREGABAL DRUG Active Other 2022-0 MD IN INGREDI 01-12 Anders[place] 00:00: n 00 PREGABAL DRUG Active [...] of adverse 00:00: [place] reaction 00 MD stan Rob [facility] ORANGE DRUG Active Low N/V 2021-11 Univers JUICE INGREDI 11-21 ity of 00:00: [place] 00 Medical Branch [place] Drug Active Nausea 2021-11 Univers Juice Allergy and/or 11-21 ity of Vomiting 00:00: [place] 00 Medical Branch [place] Propensi Active Other [facility] [place] ty to 07-08 reaction( [place] adverse 00:00: s): of reaction 00 [...] ia 00:00: [place] 00 MD pierce[facility] Doxy[facility] Propensi Active [facility] ine ty to 106 College adverse 00:00: of reaction 00 Medicin s to e drug Metoclop Propensi Active Riley ramide ty to 11-06 [place] adverse 00:00: of reaction 00 Medicin s to e drug ORANGE DRUG Active Low NandV MD JUICE INGREDI 6-18 Anderso 00:00: n 00 [place] Drug Active GI Univers Juice Allergy Intolerance 18 ity of 00:00: [place] 00 MD Liane olivier [facility] Center doxycycl DA Active U 2020-0 [facility]- [place] 00:00: d 00 Medical Amery metoclop DA Active U 2020-0 [facility] ramide 2 [place] 00:00: d 00 [facility] doxycycl DA Active U VOMITING 2019-0 [facility] ine 2 [place] 00:00: d 00 [facility] metoclop DA Active U UNKNOWN 2020-0 [facility] ramide 12-07 [place] 00:00: d 00 [facility] [place] Propensi Active Nausea And 2018-0 And Ki[place] Ba ylor ty to Vomiting 05-11 [place] adverse 00:00: of reaction 00 Medicin s to e drug ORANGE Allergy Active Med N\\T\\V 2018-[address] [facility] 00 Amery [place] Propensi Active Nausea 2018-0 Univers ty to and/or 05-11 ity of adverse Vomiting 00:00: [place] reaction 00 Medical s Branch ORANGE DRUG Active Med N/V 2018-0 Univers INGREDI 7-11 ity of 00:00: [place] 00 [facility] Er [place] Drug Active Nausea And 2018-[address] Allergy Vomiting 7-11 [facility] 00:[facility]: Medical 00 Amery METOCLOP DRUG Active High Nausea 2015-0 MD [...] INGREDI 3-16 Anderso 00:00: n 00 METOCLOP Allergy Active High Other 2015-[address] RAMIDE 3-16 [facility] 00:[facility]: Medical 00 Center DOXYCYCL DRUG Active High Nausea 2015-0 MD [...] INGREDI 3-16 Anderso 00:00: n 00 Doxycycl Propensi Active Nausea 2015-0 Univer s ine ty to and/or 3-16 ity of adverse Vomiting 00:00: [place] reaction 00 Medical s Branch METOCLOP DRUG Active High Nausea 2015-0 MD RAMIDE INGREDI 3-16 Anderso 00:00: n 00 DOXYCYCL DRUG Active High Nausea 2015-0 MD INE INGREDI 3-16 Anderso 00:00: n 00 Metoclop Propensi Active Unknown - 2015-0 Told by Oscar ba ty to See comments 16 anesthesi i ty of Hcl adverse 00:00: ologist [place] reaction 00 that she Medica l s should Branch add to her allergies following a procedure METOCLOP DRUG Active High Nausea 2015-0 MD RAMIDE INGREDI 3-16 Anderso 00:00: n 00 DOXYCYCL DRUG Active High Nausea 2015-0 MD INE INGREDI 3-16 Anderso 00:00: n 00 DOXYCYCL DRUG Active High N/V 2015-0 Univers INE INGREDI 3-16 ity of 00:00: [place] 00 Medical Branch METOCLOP DRUG Active High Nausea 2015-0 MD RAMIDE INGREDI 3-16 Anderso 00:00: n 00 METOCLOP DRUG Active Unknown-Cmnt 0 Un ally RAMIDE INGREDI 3-16 ity of HCL 00:00: [place] 00 [facility] Er DOXYCYCL DRUG Active High Nausea 2015-0 MD INE INGREDI 3-16 Anderso 00:00: n 00 DOXYCYCL DRUG Active High Nausea 2015-0 MD INE INGREDI 3-16 Anderso 00:00: n 00 METOCLOP DRUG Active High N/V 2015-0 Univers RAMIDE INGREDI 3-16 ity of 00:00: [place] 00 [facility] Er METOCLOP DRUG Active High Nausea 2015-0 MD [...] RAMIDE INGREDI 3-16 Anderso 00:00: n 00 Doxycycl Drug Active Nausea And 2015-0 Other Univ ers ine Allergy Vomiting 16 reaction( ity of 00:00: s): UnknownOt MD her Rob reaction( n s): n/v, Cancer Nausea/Vo Center miting, Unknown Metoclop Drug Active Other (See Other Univ ers ramide Allergy Comments) 16 reaction( ity of 00:00: s): UNKNOWN, Unknown - Andersclint See n commentsT Cancer old by Center [...] l [place] NO KNOWN Allergy Active [facility] Family History Family Member Diagnosis Comments Start Date Stop Date Source Cousin [facility] Natural father Diabetes [facility] Natural father Glaucoma [facility] Natural father Leukemia [facility] Maternal uncle Cancer [facility] Maternal uncle Colon cancer Universi ty [facility] Natural mother -Unknown cancer Unive [facility] Natural mother Diabetes [facility] Natural mother Glaucoma [facility] Ca ncer Amery Paternal grandfather Diabetes Univ ersity of [facility] Paternal grandfather Leukemia Univ ersity of [facility] Paternal grandmother Diabetes Univ ersity of [facility] Natural sister Ovarian cancer Univer sity of [facility] Social History Social Habit Start Date Stop Date Quantity Comments Source History of tobacco Cigarette Smoker University of use [place] MD Ruelas [facility] History SDOH University o f Transport Non-Med [facility] Exposure to 2023-03-01 2023-03-11 Not sure University of SARS-CoV-2 (event) 00:00:00 11:06:00 [facility] Alcohol intake 2023-02-07 2023-02-07 Ex-drinker University of 00:00:00 00:00:00 (finding) [place] MD Ruelas [facility] Tobacco use and 2022-11-26 2022-11-26 Smokeless Universit y of exposure 00:00:00 00:00:00 tobacco non-user [facility] Cigarettes smoked 2022-11-26 2022-11-26 Univers ity of current (pack per 00:00:00 00:00:00 [facility] Ashely Bipin ) - Reported Cancer Ce nter Cigarette 2022-11-26 2022-11-26 University of pack-years 00:00:00 00:00:00 [place] MD Ruelas [facility] Tobacco Comment 2022-01-08 2022-01-08 only as teenager [facility] 00:00[facility]00 00[facility]00 Medical Center History SDOH Social 2019-08-25 2019-08-25 3 Unive rsity of Connections Phone 00:00:00 00:00:00 [facility] History SDOH Social 2019-08-25 2019-08-25 1 Unive rsity of Connections Get 00:00:00 00:00:00 [place] Med ical Together Branch History SDOH Social 2019-08-25 2019-08-25 1 Unive rsity of Connections Faith 00:00:00 00:00:00 [place] [facility] History SDOH [...] 00:00:00 [place] M edical MPS Branch History SDCA Stress 2019-08-25 2019-08-25 3 Unive rsity of [...] University o f Transport Med 00:00:00 00:00:00 [place] Medic al Branch Social History 2015-11-07 2015-11-07 [facility] Vickie logan 16:48:16 16:48:16 [birth year] CARMEN Hilario 00:00:00 00:00:00 [facility] Center Smoking Status Start Date Stop Date Source Ex-smoker 2022-11-26 00:00:00 2022-11-26 00:00:00 [facility] Never smoked tobacco [facility] ege of Medicine Medications Ordered Filled Start Stop Current Ordering Indication Dosage Frequency Signature Comments Components Source Medication Medication Date Date Medication? Clinician (SIG) Name Name cefPODoxime Yes 200mg Take 1 Uni vers (VANTIN) 5-14 tablet ity of 200 mg 00:00: (200 mg) [place] tablet 00 by mouth MD twice Anderso daily. n Cancer Center HYDROcodone Yes 2745 1{tbl} Take 1 Un ally -acetaminop 5-04 tablet by ity of hen 7.5-325 00:00: mouth [place] mg per 00 every 6 Medical tablet (six) Branch hours as needed for Pain. Indication s: chronic pain oxyCODONE-a Yes Cancer 1{tbl} Take 1 Univers cetaminophe 5-04 associated tablet by ity of n 00:00: pain mouth 2 [place] (Percocet) 00 (two) 5 mg-325 mg times a Suraj so per tablet day as n needed for Cancer severe Center pain. oxyCODONE-a Yes Cancer 1{tbl} Take 1 Univers cetaminophe 5-04 associated tablet by ity of n 00:00: pain mouth 2 [place] (Percocet) 00 (two) 5 mg-325 mg times a Suraj so per tablet day as n needed for Cancer severe Center pain. lisinopril Yes 40mg Take 1 Unive rs (PRINIVIL,Z 5-03 tablet (40 it y of ESTRIL) 40 11:42: mg) by [place] mg tablet 53 mouth MD every Anderso morning. n Cancer Center allopurinol Yes prevention 300mg Take 1 Univers (ZYLOPRIM) 5-03 of acute tablet ity of 300 mg 11:42: gout attack (300 mg) [place] tablet 53 by mouth MD twice Anderso daily. Cancer Center colchicine Yes prevention .6mg Take 1 Univers (COLCRYS) 5-03 of acute tablet ity of 0.6 mg 11:42: gout attack (0.6 mg) [place] tablet 53 by mouth MD daily. [facility] dicyclomine Yes 10mg Take 1 Univ ers (BENTYL) 10 5-03 capsule ity o f mg capsule 11:42: (10 mg) by T kate 53 mouth 3 MD (three) Anderso times a n day. Cancer Center lisinopril Yes 40mg Take 1 Unive rs (PRINIVIL,Z 5-03 tablet (40 it y of ESTRIL) 40 11:42: mg) by [place] mg tablet 53 mouth MD every Anderso morning. Cancer Amery allopurinol Yes prevention 300mg Take 1 Univers (ZYLOPRIM) 5-03 of acute tablet ity of 300 mg 11:42: gout attack (300 mg) [place] tablet 53 by mouth MD twice Anderso daily. Cancer Amery colchicine Yes prevention .6mg Take 1 Univers (COLCRYS) 5-03 of acute tablet ity of 0.6 mg 11:42: gout attack (0.6 mg) [place] tablet 53 by mouth MD daily. [facility] dicyclomine Yes 10mg Take 1 Univ ers (BENTYL) 10 5-03 capsule ity o f mg capsule 11:42: (10 mg) by Christelle love 53 mouth 3 MD (three) Anderso times a n day. Cancer Center gabapentin Yes Chronic TAKE 1 Un ally (NEURONTIN) 5-02 pain TABLET(800 it y of 800 mg 00:00: MG) BY [place] tablet 00 MOUTH MD EVERY 8 Anderso HOURS [facility] gabapentin Yes Chronic TAKE 1 Un ally (NEURONTIN) 5-02 pain TABLET(800 it y of 800 mg 00:00: MG) BY [place] tablet 00 MOUTH MD EVERY 8 Anderso HOURS Cancer Amery pseudoephed Yes Chronic 30mg Take 1 U nivers rine 4-28 pain tablet (30 ity of (Sudafed) 00:00: mg) by [place] 30 mg 00 mouth MD tablet every 8 Anderso (eight) n hours as Cancer needed for Center congestion . pseudoephed Yes Chronic 30mg Take 1 U nivers rine 4-28 pain tablet (30 ity of [...] hypertensio 100mg Take 1 [facility] (APRESOLINE 4-18 04-18 n tablet ity o f ) 100 mg 16:41: 00:00 (100 mg) [place] tablet 23 :00 by mouth 3 MD (three) Anderso times a n day. Cancer Center hydroCHLORO 2022- No 12.5mg Take 1 U nivers thiazide 4-18 04-18 capsule ity of (MICROZIDE) 16:41: 00:00 (12.5 mg) [place] 12.5 mg 23 :00 by mouth MD capsule every Anderso morning. n [facility] Center cloNIDine 2022- No .2mg Take 1 Unive rs HCl 4-18 04-18 tablet ity of (CATAPRES) 16:41: 00:00 (0.2 mg) [place] 0.2 mg 23 :00 by mouth 3 MD tablet (three) Anderso times a n day as Cancer needed. Amery hydrALAZINE 2022- No hypertensio 100mg Take 1 [facility] (APRESOLINE 4-18 04-18 n tablet ity o f ) 100 mg 16:41: 00:00 (100 mg) [place] tablet 23 :00 by mouth 3 MD (three) Anderso times a n day. Cancer Center hydroCHLORO 2022- No 12.5mg Take 1 U nivers thiazide 4-18 04-18 capsule ity of (MICROZIDE) 16:41: 00:00 (12.5 mg) [place] 12.5 mg 23 :00 by mouth MD capsule every Anderso morning. n Cancer Center cloNIDine 2022- No .2mg Take 1 Unive rs HCl 02-1618 tablet ity of (CATAPRES) 16:41: 00:00 (0.2 mg) [place] 0.2 mg 23 :00 by mouth 3 MD tablet (three) Anderso times a n day as Cancer needed. Center insulin Yes Type 2 Inject Univer s regular hum 18 diabetes 70-180 it y of U-500 conc 00:00: mellitus Units [place] (HumuLIN R 00 without under the M D U-500, complicatio skin daily Anderso Conc, n with n Kwikpen) breakfast Cancer 500 unit/mL AND 40-105 Ce nter (3 mL) Units insulin pen daily before lunch AND 35-95 Units daily before dinner. insulin Yes Type 2 Inject Univer s regular hum 18 diabetes 70-180 it y of U-500 conc 00:00: mellitus Units [place] (HumuLIN R 00 without under the M D U-500, complicatio skin daily Anderso Conc, n with n Kwikpen) breakfast Cancer 500 unit/mL AND 40-105 Ce nter (3 mL) Units insulin pen daily before lunch AND 35-95 Units daily before dinner. levoFLOXaci 2022- No Deep venous 750mg Take 1 Univers n 02-16- thrombosis tablet ity of (LEVAQUIN) 00:00: 04:59 <Unspecifie (750 mg) [place] 750 mg 00 :00 d side> by mouth MD tablet daily for Anderso 3 days. n [facility] Center levoFLOXaci 2022- No Deep venous 750mg Take 1 Univers n 02-16-22 thrombosis tablet ity of (LEVAQUIN) 00:00: 04:59 <Unspecifie (750 mg) [place] 750 mg 00 :00 d side> by mouth MD tablet daily for Anderso 3 days. n [facility] enoxaparin Yes Deep venous 120mg Inject 0.8 Univers (LOVENOX) 4-14 thrombosis mL (120 i ty of 120 mg/0.8 00:00: <Unspecifie mg) under [place] mL 00 d side> the skin MD prefilled every 12 Lauri o syringe (twelve) n hours. Cancer Center enoxaparin Yes Deep venous 120mg Inject 0.8 Univers (LOVENOX) 4-14 thrombosis mL (120 i ty of 120 mg/0.8 00:00: <Unspecifie mg) under [place] mL 00 d side> the skin MD prefilled every 12 [place]uri o syringe (twelve) n hours. Cancer Center oxyCODONE-a 2022- No Neoplasm 1{tbl} Take 1 Univers cetaminophe 4-14 -18 related tablet by ity of n 00:00: 00:00 pain mouth [place] (Percocet) 00 :00 (acute) every 6 MD 7.5-325 mg (chronic) (six) And erso per tablet hours as n needed for Cancer severe Center pain for up to 45 days. oxyCODONE-a 2022- No Neoplasm 1{tbl} Take 1 Univers cetaminophe 4-14 -18 related tablet by ity of n 00:00: 00:00 pain mouth [place] (Percocet) 00 :00 (acute) every 6 MD 7.5-325 mg (chronic) (six) And erso per tablet hours as n needed for Cancer severe Center pain for up to 45 days. lidocaine Yes Adenocarcin 5mL Swish and [facility] (XYLOCAINE) 4-06 yanely of swallow 5 i ty of 20 mg/mL 00:00: nasopharynx mL every 6 [place] (2%) 00 (six) MD viscous hours as Anderso solution needed n (painful Cancer swallowing Center ). fluticasone Yes Adenoid 100ug Inhale 2 Univers propionate 4-06 cystic sprays ity o f (FLONASE) 00:00: carcinoma (100 mcg) [place] 50 00 of into each MD mcg/spray nasopharynx nostril Anderso nasal spray , NOS twice n daily. Cancer Center lidocaine Yes Adenocarcin 5mL Swish and [facility] (XYLOCAINE) 4-06 yanely of swallow 5 i ty of 20 mg/mL 00:00: nasopharynx mL every 6 [place] (2%) 00 (six) MD viscous hours as Anderso solution needed n (painful Cancer swallowing Center ). fluticasone Yes Adenoid 100ug Inhale 2 Univers propionate 02-04 cystic sprays ity o f (FLONASE) 00:00: carcinoma (100 mcg) [place] 50 00 of into each MD mcg/spray nasopharynx nostril Anderso nasal spray , NOS twice n daily. Cancer Center ondansetron 2023- Yes Adenoid 8mg Take 1 Univers (ZOFRAN) 8 02-04-06 cystic tablet (8 i ty of mg tablet 00:00: 04:59 carcinoma mg) by [place] 00 :00 of mouth MD nasopharynx every 8 Suraj so , NOS (eight) n hours as Cancer needed for Center nausea or vomiting. ondansetron 2023- Yes Adenoid 8mg Take 1 Univers (ZOFRAN) 8 02-04-06 cystic tablet (8 i ty of mg tablet 00:00: 04:59 carcinoma mg) by [place] 00 :00 of mouth nasopharynx every 8 Suraj so , NOS (eight) n hours as Cancer needed for Center nausea or vomiting. insulin 2022- No Type 2 USE Unive rs syringe-nee 02-02 diabetes DIRECTED ity of dle U-100 1 00:00: 00:00 mellitus FOUR TIMES [place] mL 31 gauge 00 :00 with DAILY MD x 5/16 syrg hyperglycem A nderso ia n Cancer Center insulin 2022- No Type 2 USE Unive rs syringe-nee 02-02 diabetes DIRECTED ity of dle U-100 1 00:00: 00:00 mellitus FOUR TIMES [place] mL 31 gauge 00 :00 with DAILY MD x 5/16 syrg hyperglycem A nderso ia n Cancer Center oxyCODONE-a 2022- No Chronic 1{tbl} Take 1 Univers cetaminophe 02-0104 pain tablet by it y of n 00:00: 00:00 mouth [place] (PERCOCET) 00 :00 every 6 MD 7.5-325 mg (six) Anderso per tablet hours as n needed for Cancer severe Center pain. oxyCODONE-a 2022- No Chronic 1{tbl} Take 1 [...] MD every 8 Anderso (eight) n hours. [facility] gabapentin 2022- No Chronic 800mg Take 1 Univers (NEURONTIN) 02-01 pain tablet ity o f 800 mg 00:00: 00:00 (800 mg) [place] tablet 00 :00 by mouth MD every 8 Anderso (eight) n hours. [facility] pen needle, Yes Type 2 Use to Un ally diabetic 01-31 diabetes inject ity o f (Easy 00:00: mellitus insulin 4 Frankie as Comfort Pen 00 with times a MD [place]) 31 hyperglycem day A nderso gauge x ia n 03/16" [facility] pen needle, Yes Type 2 Use to Un ally diabetic 01-31 diabetes inject ity o f (Easy 00:00: mellitus insulin 4 Frankie as Comfort Pen 00 with times a [place]) 31 hyperglycem day A nderso gauge x ia n 03/16" [facility] insulin 2022- No Type 2 Inject 5 Uni vers regular 01-31-18 diabetes units to ity of (HumuLIN R 00:00: 00:00 mellitus 25 units [place] Regular 00 :00 with with meals U-100 hyperglycem as needed An derso Insuln) 100 ia for blood n units/mL sugar Cancer injection greater Center than 150 mg/dL insulin 2022- No Type 2 50U Inject 50 Un ally regular hum 01-31-18 diabetes to 125 i ty of U-500 [...] 00 :00 MD [facility] insulin 2022- No Type 2 Inject 5 Uni vers regular 01-31 diabetes units to ity of (HumuLIN R [...] 3 Bandar rso Conc, n (three) n [place]) times a Cancer 500 unit/mL day, Center (3 mL) before insulin pen meals. Inject as instructed at discharge. pen needle, 2022- No Use as Uni vers diabetic 01-31 directed. 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 n another Cancer dose into Center the other nostril after 2 minutes if the patient does not respond naloxone 0 Yes intermediate accountant 1 dose Un ally (Narcan) 4 01-20 current use into one ity of mg/actuatio 00:00: of opiate nostril as [place] n nasal 00 analgesic needed for M D spray opioid [place] overdose. n another Cancer dose into Center the other nostril after 2 minutes if the patient does not respond xyloxylin 2022- No Ulcerative 10mL Swish and [facility] oral 01-20 oral swallow 10 ity of suspension 00:00: 00:00 mucositis mL 2 (two) [place] (AMB-CMPD) 00 :00 due to times a MD antineoplas day as Lauri o tic therapy needed for n mouth Cancer pain. Amery xyloxylin 2022- No Ulcerative 10mL Swish and [facility] oral 01-20 04-18 oral swallow 10 ity of suspension 00:00: 00:00 mucositis mL 2 (two) [place] (AMB-CMPD) 00 :00 due to times a MD antineoplas day as [place]uri o tic therapy needed for n mouth Cancer pain. Amery hydrALAZINE 2022- No 100mg Take 1 Un ally (APRESOLINE 3-20 03-20 tablet ity o f ) 100 mg 19:34: 00:00 (100 mg) [place] tablet 54 :00 by mouth 3 MD (three) Anderso times a n day. Cancer Center metFORMIN 2022- No 1000mg Take 1 Uni vers (GLUCOPHAGE 3-20 03-20 tablet ity o f ) 1000 mg 19:34: 00:00 (1,000 mg) [place] tablet 54 :00 by mouth 2 MD (two) Anderso times a n day with Cancer meals. Amery spironolact 2022- No 25mg Take 1 Uni vers one 3-20 03-20 tablet (25 ity of (ALDACTONE) 19:34: 00:00 mg) by [place] as 25 mg 54 :00 mouth MD tablet daily. Anderso n Cancer Amery hydrALAZINE 2022- No 100mg Take 1 Un ally (APRESOLINE 3-20 03-20 tablet ity o f ) 100 mg 19:34: 00:00 (100 mg) [place] tablet 54 :00 by mouth 3 MD (three) Anderso times a n day. Cancer Center metFORMIN 2022-2022- No 1000mg Take 1 Uni vers (GLUCOPHAGE 3-20 03-20 tablet ity o f ) 1000 mg 19:34: 00:00 (1,000 mg) [place] tablet 54 :00 by mouth 2 MD (two) Anderso times a n day with Cancer meals. Amery spironolact 2022- No 25mg Take 1 Uni vers one 3-20 03-20 tablet (25 ity of (ALDACTONE) 19:34: 00:00 mg) by [place] as 25 mg 54 :00 mouth MD tablet daily. [facility] metoprolol Hypertensio 50mg Take 1 Univers tartrate 01-18-20 n tablet (50 ity of (LOPRESSOR) 00:00: 04:59 mg) by [place] as 50 mg 00 :00 mouth MD tablet twice Anderso daily for n 30 days. [facility] metoprolol Hypertensio 50mg Take 1 Univers tartrate 01-18 n tablet (50 ity of (LOPRESSOR) 00:00: 04:59 mg) by [place] as 50 mg 00 :00 mouth MD tablet twice Anderso daily for n 30 days. [facility] sucralfate Ulcerative 1000mg Take 10 mL Univers (CARAFATE) 01-18 oral (1,000 mg) it y of 100 mg/mL 00:00: 00:00 mucositis by mouth 4 [place] suspension 00 :00 due to (four) antinekrystin times a Suraj so tic therapy day. n Cancer Amery UNABLE TO No Compound Uni vers FIND 01-18 Drug ity of 00:00: 00:00 [place] 00 :00 MD [facility] sucralfate No Ulcerative 1000mg Take 10 mL Univers (CARAFATE) 01-18 oral (1,000 mg) it y of 100 mg/mL 00:00: 00:00 mucositis by mouth 4 [place] suspension 00 :00 due to (four) antinekrystin times a Suraj so tic therapy day. n Cancer Center UNABLE TO No Compound Uni vers FIND 01-18 Drug ity of 00:00: 00:00 [place] 00 :00 MD Liane ol[facility] oxyCODONE-a 2022- No Neoplasm 1{tbl} Take 1 Univers cetaminophe 01-18 related tablet by ity of n 00:00: 00:00 pain mouth [place] (Percocet) 00 :00 (acute) every 6 MD 5 mg-325 mg (chronic) (six) An derso per tablet hours as n needed for Cancer severe Center pain. oxyCODONE-a 2022- No Neoplasm 1{tbl} Take 1 Univers cetaminophe 01-18 related tablet by jaymie 00:00: 00:00 pain mouth [place] (Percocet) 00 [...] 2022- No Use as Uni vers diabetic 01-18 directed. ity o f needle 00:00: 14:58 [place] 00 :12 MD [facility] insulin 2022- No Type 2 50U Inject [...] 2022- No Use as Uni vers diabetic 01-18 directed. [...] for Center muscle spasms (neck pain). xyloxylin 2022- No Ulcerative 10mL Swish and [facility] oral 01-18 oral swallow 10 ity of suspension 00:00: 00:00 mucositis mL by [place] ([facility]) 00 :00 due to mouth MD antineoplas every 6 Suraj so tic therapy (six) n hours as Cancer needed for Center mouth pain. cyclobenzap 2022- No Cancer 10mg Take 1 U nivers rine 01-18 associated tablet (10 it y of (FLEXERIL) 00:00: 00:00 pain mg) by [place] 10 mg 00 :00 mouth 3 MD tablet (three) Anderso times a n day as Cancer needed for Center muscle spasms (neck pain). xyloxylin 2022- No Ulcerative 10mL Swish and [facility] oral 01-18 oral swallow 10 ity of suspension 00:00: 00:00 mucositis mL by [place] ([facility]) 00 :00 due to mouth MD antineoplas every 6 Suraj so tic therapy [...] suspension 00:00: 00:00 mucositis mL every 6 [place] (AMB-CMPD) 00 :00 due to (six) MD [...] No Hypertensio 50mg Take 1 Univers tartrate 3-20 -20 n tablet (50 ity of (LOPRESSOR) 00:00: 00:00 mg) by [place] as 50 mg 00 :00 mouth MD tablet twice Anderso daily for n 30 days. Cancer Center sucralfate 2022- No Ulcerative 1000mg Take 10 mL Univers (CARAFATE) 3-20 -20 oral (1,000 mg) it y of 100 mg/mL 00:00: 00:00 mucositis by mouth 4 [place] suspension 00 :00 due to (four) MD antineoplas times a Suraj so tic therapy day. n Cancer Center xyloxylin 2022- No Ulcerative 10mL Swish and [facility] oral -20 -20 oral swallow 10 ity of suspension 00:00: 00:00 mucositis mL every 6 [place] (AMB-CMPD) 00 :00 due to (six) MD antineoplas hours as Bandar rso tic therapy needed for n mouth Cancer pain. Center oxyCODONE-a 2022- No Neoplasm 1{tbl} Take 1 [facility] cetaminophe -18 01-20 related tablet by ity of n 00:00: 00:00 pain mouth [place] (Percocet) 00 :00 (acute) every 4 MD 5 mg-325 mg (chronic) (four) A nderso per tablet hours as n needed for Cancer moderate Center pain. xyloxylin 2022- No Ulcerative 10mL Swish and [facility] oral -18 01-20 oral swallow 10 ity of suspension 00:00: 00:00 mucositis mL every 6 [place] (AMB-CMPD) 00 :00 due to (six) MD antineoplas hours as Bandar rso tic therapy needed for n mouth Cancer pain. Amery sucralfate 2022- No Ulcerative 1000mg Take 10 mL Univers (CARAFATE) 3-20 -20 oral (1,000 mg) it y of 100 mg/mL 00:00: 00:00 mucositis by mouth 4 [place] suspension 00 :00 due to (four) MD antineoplas times a Suraj so tic therapy day. n Cancer Center metoprolol 2022- No Hypertensio 50mg Take 1 [facility] tartrate 3-20 -20 n tablet (50 ity of (LOPRESSOR) 00:00: 00:00 mg) by [place] as 50 mg 00 :00 mouth MD tablet twice Anderso daily for n 30 days. Cancer Center sucralfate Ulcerative 1000mg Take 10 mL [facility] (CARAFATE) 01-18 oral (1,000 mg) it y of 100 mg/mL 00:00: 00:00 mucositis by mouth 4 [place] suspension 00 :00 due to (four) MD antineoplas times a Suraj so tic therapy day. n Cancer Center xyloxylin No Ulcerative 10mL Swish and [facility] oral 01-18 oral swallow 10 ity of suspension 00:00: 00:00 mucositis mL every 6 [place] (AMB-CMPD) 00 :00 due to (six) MD antineoplas hours as Bandar rso tic therapy needed for n mouth Cancer pain. Center lidocaine 2022- No Adenocarcin 5mL Swish and [facility] (XYLOCAINE) 01-04-20 yanely of swallow 5 ity of 20 mg/mL 00:00: 00:00 nasopharynx mL every 6 [place] (2%) 00 :00 (six) MD viscous hours as Anderso solution needed n (painful Cancer swallowing Center ). lidocaine 2022- No Adenocarcin 5mL Swish and [facility] (XYLOCAINE) 01-04-20 yanely of swallow 5 ity of 20 mg/mL 00:00: 00:00 nasopharynx mL every 6 [place] (2%) 00 :00 (six) MD viscous hours as Anderso solution needed n (painful Cancer swallowing Center ). oxyCODONE-a No Neoplasm 1{tbl} Take 1 [facility] cetaminophe -01 01-14 related tablet by ity of n 00:00: 00:00 pain mouth [place] (Percocet) 00 :00 (acute) every 4 MD 5 mg-325 mg (chronic) (four) A nderso per tablet hours as n needed for Cancer moderate Center pain. oxyCODONE-a No Neoplasm 1{tbl} Take 1 [facility] cetaminophe -01 01-14 related tablet by ity of n 00:00: 00:00 pain mouth [place] (Percocet) 00 :00 (acute) every 4 MD 5 mg-325 mg (chronic) (four) A nderso per tablet hours as n needed for Cancer moderate Center pain. cyclobenzap 2022- No Cancer 10mg Take 1 U nivers rine 3- 03-20 associated tablet (10 it y of (FLEXERIL) 00:00: 00:00 pain mg) by [place] 10 mg 00 :00 mouth 3 MD tablet (three) Anderso times a n day as Cancer needed for Center muscle spasms (neck pain). cyclobenzap 2022- No Cancer 10mg Take 1 U nivers rine 3-11 03-20 associated tablet (10 it y of (FLEXERIL) 00:00: 00:00 pain mg) by [place] 10 mg 00 :00 mouth 3 MD tablet (three) Anderso times a n day as Cancer needed for Center muscle spasms (neck pain). pseudoephed 2022- No Cancer 30mg Take 1 U nivers rine 12-30-14 associated tablet (30 it y of (Sudafed) 00:00: 00:00 pain mg) by [place] 30 mg 00 :00 mouth 2 MD tablet (two) Anderso times a n day as Cancer needed for Center congestion . pseudoephed 2022- No Cancer 30mg Take 1 U nivers rine 3-11 03-14 associated tablet (30 it y of (Sudafed) [...] 2745 1{tbl} Take 1 U nivers -acetaminop 12-24 05-04 tablet by it y of hen 7.5-325 00:00: 00:00 mouth [place] mg per 00 :00 every 6 Medical tablet (six) [place] hours as needed for Pain. Indication s: chronic pain sodium 2022- No Adenoid Inject 10 Un ally chloride 2 04-18 cystic mL (1 ity of (NS) 0.9% 00:00: 00:00 carcinoma syringe) [place] flush 00 :00 of into each MD syringe 10 nasopharynx lumen of Anderso mL , NOS central n venous Cancer catheter Center daily as directed. sodium 2022- No Adenoid Inject 10 Un ally chloride 12-23-18 cystic mL (1 ity of (NS) 0.9% 00:00: 00:00 carcinoma syringe) [place] flush 00 :00 of into each MD syringe 10 nasopharynx lumen of Anderso mL , NOS central n venous Cancer catheter Center daily as directed. ondansetron 2022- No Adenocarcin 8mg Dissolve 1 Univers (ZOFRAN-ODT 217 02-17 yanely of tablet (8 ity of ) 8 mg 00:00: 00:00 nasopharynx mg) on the [place] disintegrat 00 :00 tongue MD ing tablet every 8 Lauri o (eight) n hours as Cancer needed for Center nausea. ondansetron 2022- No Adenocarcin 8mg Dissolve 1 Univers (ZOFRAN-ODT 217 02-17 yanely of tablet (8 ity of ) 8 mg 00:00: 00:00 nasopharynx mg) on the [place] disintegrat 00 :00 tongue MD ing tablet every 8 Lauri o (eight) n hours as Cancer needed for Center nausea. prochlorper 2022-0 Yes Adenoid 10mg Take 1 U nivers azine 2-16 cystic tablet (10 ity of (Compazine) 00:00: carcinoma mg) by [place] 10 mg 00 of mouth MD tablet nasopharynx every 6 And erso , NOS (six) n hours as Cancer needed for Center nausea or vomiting (if not controlled by Ondansetro n). prochlorper 2022-0 Yes Adenoid 10mg Take 1 U nivers azine 2-16 cystic tablet (10 ity of (Compazine) 00:00: carcinoma mg) by [place] 10 mg 00 of mouth tablet nasopharynx every 6 And erso , NOS (six) n hours as Cancer needed for Center nausea or vomiting (if not controlled by Ondansetro n). ondansetron 2022- No Adenoid 8mg Take 1 Univers (ZOFRAN) 8 12-17-06 cystic tablet (8 i ty of mg tablet 00:00: 00:00 carcinoma mg) by [place] 00 :00 of mouth nasopharynx every 8 Suraj so , NOS (eight) n hours as Cancer needed for Center nausea or vomiting. ondansetron 2022- No Adenoid 8mg Take 1 Univers (ZOFRAN) 8 12-17- cystic tablet (8 i ty of mg tablet 00:00: 00:00 carcinoma mg) by [place] 00 :00 of mouth nasopharynx every 8 Suraj so , NOS (eight) n hours as Cancer needed for Center nausea or vomiting. fluoride, 2022- No Adenoid Apply to Univers sodium, 12-16-14 cystic teeth ity of (DENTAGEL) 00:00: 00:00 carcinoma daily for [place] 1.1% dental 00 :00 of 30 days. gel nasophMYLA [facility] fluoride, 2022- No Adenoid Apply to Univers sodium, 12-16-14 cystic teeth ity of (DENTAGEL) 00:00: 00:00 carcinoma daily for [place] 1.1% dental 00 :00 of 30 days. gel nasophMYLA [facility] celecoxib 2022- No Headache, 200mg Take 1 Univers (CeleBREX) 12-16 not capsule ity o f 200 mg 00:00: 00:00 otherwise (200 mg) [place] capsule 00 :00 specified by mouth daily. [facility] celecoxib 2022- No Headache, 200mg Take 1 Univers (CeleBREX) 12-16 not capsule ity o f 200 mg 00:00: 00:00 otherwise (200 mg) [place] capsule 00 :00 specified by mouth daily. Laurio n Cancer [facility] Yes Type 2 1.8mg Inject 0.3 U nivers 2-Patrick 0.6 2-14 diabetes mL (1.8 ity of mg/0.1 mL 00:00: mellitus mg) under [place] (18 mg/3 00 without the skin MD mL) pnij complicatio daily. An derso injection n n Cancer [facility] Yes Type 2 1.8mg Inject 0.3 U nivers 2-Patrick 0.6 2-14 diabetes mL (1.8 ity of mg/0.1 mL 00:00: mellitus mg) under [place] (18 mg/3 00 without the skin MD mL) pnij complicatio daily. An derso injection n n Cancer Center BD [place] 2022- No Type 2 1{devic Inject 1 Univers Gen Pen 12-1503 diabetes e} Device ity o f Needle 32 00:00: 00:00 mellitus under the [place] gauge x 00 :00 without skin 3 MD " ndle complicatio (three) Anderso n times a n day before Cancer meals. Center gabapentin 2022- No Headache, 600mg Take 1 Univers (NEURONTIN) 12-15 not tablet ity o f 600 mg 00:00: 00:00 otherwise (600 mg) [place] tablet 00 :00 specified by mouth MD every 8 Anderso (eight) n hours. Cancer Center BD [place] 2022- No Type 2 1{devic Inject 1 Univers Gen Pen 12-15 diabetes e} Device ity o f Needle 32 00:00: 00:00 mellitus under the [place] gauge x 00 :00 without skin 3 MD " ndle complicatio (three) Anderso n times a n day before Cancer meals. Center gabapentin 2022- No Headache, 600mg Take 1 [facility] (NEURONTIN) 12-15- not tablet ity o f 600 mg 00:00: 00:00 otherwise (600 mg) [place] tablet 00 :00 specified by mouth MD every 8 Anderso (eight) n hours. Cancer Center metoprolol 2022- No Hypertensio 50mg Take 1 Univers tartrate 12-1520 n tablet (50 ity of (LOPRESSOR) 00:00: 00:00 mg) by [place] as 50 mg 00 :00 mouth MD tablet twice Anderso daily for n 30 days. [facility] insulin No Type 2 110U Inject Unive rs regular hum 12-15 diabetes 110-160 ity of U-500 conc 00:00: 00:00 mellitus Units [place] (HumuLIN R 00 :00 without under the M D U-500, complicatio skin 3 Bandar rso Conc, n (three) n Kwikpen) times a Cancer 500 unit/mL day before Ce nter (3 mL) meals. insulin pen metoprolol Hypertensio 50mg Take 1 [facility] tartrate 12-15 n tablet (50 ity of (LOPRESSOR) 00:00: 00:00 mg) by [place] 50 mg 00 :00 mouth MD tablet twice Anderso daily for n 30 days. [facility] insulin No Type 2 110U Inject Unive [...] n needed for Cancer moderate Center pain. oxyCODONE-a No Neoplasm 1{tbl} Take 1 [facility] cetaminophe 12-15 related tablet by ity of n 00:00: 00:00 pain mouth [place] (Percocet) 00 :00 (acute) every 4 MD 5 mg-325 mg (chronic) (four) A nderso per tablet hours as n needed for Cancer moderate Center pain. insulin 2022- No Type 2 110U Inject 110 U nivers regular hum 12-15 diabetes to 160 i ty of U-500 conc 00:00: 00:00 mellitus Units [place] (HumuLIN R 00 :00 without under the M D U-500, complicatio skin 3 Bandar rso Conc, n (three) n Kwikpen) times a Cancer 500 unit/mL day before Ce nter (3 mL) meals. insulin pen pantoprazol No Gastroesoph 40mg Take 1 Univers e 12-15 ageal tablet (40 ity of (Protonix) 00:00: 00:00 reflux mg) by [place] 40 mg EC 00 :00 disease mouth MD tablet every Anderso morning n before Cancer breakfast Center for 30 days. insulin 2022- No Type 2 110U Inject 110 U nivers regular hum 12-15 diabetes to 160 i ty of U-500 conc 00:00: 00:00 mellitus Units [place] (HumuLIN R 00 :00 without under the M D U-500, complicatio skin 3 Bandar rso Conc, n (three) n Kwikpen) times a Cancer 500 unit/mL day before Ce nter (3 mL) meals. insulin pen pantoprazol No Gastroesoph 40mg Take 1 Univers e 12-15 ageal tablet (40 ity of (Protonix) 00:00: 00:00 reflux mg) by [place] 40 mg EC 00 :00 disease mouth MD tablet every Anderso morning n before Cancer breakfast Center for 30 days. dexamethaso 2022- No Adenocarcin 2mg Take 1 Univers ne 12-05 yanely of tablet (2 ity of (DECADRON) 00:00: 00:00 nasopharynx mg) by [place] 2 mg tablet 00 :00 mouth MD twice Anderso daily. n Cancer Amery dexamethaso 2022- No Adenocarcin 2mg Take 1 Univers ne 12-05 yanely of tablet (2 ity of (DECADRON) [...] hours as Cancer needed Center (cancer pain). HYDROmorpho 2022- No Adenocarcin 2mg Take 1 [...] mg 00:00: 00:00 nasopharynx mg) on the [place] disintegrat 00 :00 tongue MD ing tablet every 8 Lauri o (eight) n hours as Cancer needed for Center nausea. ondansetron 2022- No Adenocarcin 8mg Dissolve 1 [...] Pain. Indication s: chronic pain colchicine Yes [id number] .6mg Take 1 U nivers 0.6 mg 1-18 tablet by ity of tablet 00:00: mouth in [place] 00 the Medical morning. Branch HYDROcodone 2022-0 Yes [id number] 1{tbl} Take 1 Un ally -acetaminop 1-18 tablet by ity of hen 7.5-325 00:00: mouth [place] mg per 00 every 6 Medical tablet (six) Branch hours as needed for Pain. Indication s: chronic pain colchicine 2022-0 Yes [id number] .6mg Take 1 U nivers 0.6 mg 1-18 tablet by ity of tablet 00:00: mouth in [place] 00 the Medical morning. Branch colchicine 2022-0 Yes [id number] .6mg Take 1 U nivers 0.6 mg 1-18 tablet by ity of tablet 00:00: mouth in [place] 00 the Medical morning. Branch colchicine 2022-0 Yes [id number] .6mg Take 1 U nivers 0.6 mg 1-18 tablet by ity of tablet 00:00: mouth in [place] 00 the Medical morning. Branch colchicine 2022-0 Yes [id number] .6mg Take 1 U nivers 0.6 mg 1-18 tablet by ity of tablet 00:00: mouth in [place] 00 the Medical morning. Branch HYDROcodone 2022-0 2022- No [id number] 1{tbl} Take 1 U nivers -acetaminop 1-18 - tablet by it y of hen 7.5-325 00:00: [place] mg per 00 :00 every 6 Medical tablet (six) Branch hours as needed for Pain. Indication s: chronic pain HumuLIN 2022-0 2022- No Univers 70/30 U-100 11-16 ity of Insulin 100 00:00: 00:00 [place] unit/mL 00 :00 MD (70-30) [facility] HumuLIN 2022-0 2022- No Univers 70/30 U-100 11-1614 ity of Insulin 100 00:00: 00:00 [place] unit/mL 00 :00 MD (70-30) [facility] HYDROCHLORO 2022-0 Yes [id number] 12.5mg TAKE 1 Univers THIAZIDE 1-09 CAPSULE BY ity o f 12.5 mg 00:00: MOUTH [place] capsule 00 DAILY Medical Branch LISINOPRIL 2022-0 Yes [id number] TAKE 1/2 Univers 40 mg 1-09 TABLET BY ity of tablet 00:00: MOUTH [place] 00 TWICE Medical DAILY Branch HYDRALAZINE 2023-0 Yes [id number] TAKE 1 Univers 100 mg 1-09 TABLET BY ity of tablet 00:00: MOUTH [place] 00 THREE Medical TIMES Branch DAILY HYDROCHLORO 3-0 Yes [id number] 12.5mg TAKE 1 Univers THIAZIDE 1-09 CAPSULE BY ity o f 12.5 mg 00:00: MOUTH [place] capsule 00 DAILY Medical Branch LISINOPRIL 2022-0 Yes [id number] TAKE 1/2 Univers 40 mg 1-09 TABLET BY ity of tablet 00:00: MOUTH [place] 00 TWICE Medical DAILY Branch HYDRALAZINE 2022-0 Yes [id number] TAKE 1 Univers 100 mg 1-09 TABLET BY ity of tablet 00:00: MOUTH [place] THREE Medical TIMES Branch DAILY HYDROCHLORO 2022-0 Yes [id number] 12.5mg TAKE 1 Univers THIAZIDE 1-09 CAPSULE BY ity o f 12.5 mg 00:00: MOUTH [place] capsule 00 DAILY Medical Branch LISINOPRIL 2022-0 Yes [id number] TAKE 1/2 Univers 40 mg 1-09 TABLET BY ity of tablet 00:00: MOUTH [place] 00 TWICE Medical DAILY Branch HYDRALAZINE 3-0 Yes [id number] TAKE 1 Univers 100 mg 1-09 TABLET BY ity of tablet 00:00: MOUTH [place] THREE Medical TIMES Branch DAILY HYDROCHLORO 3-0 Yes [id number] 12.5mg TAKE 1 Univers THIAZIDE 1-09 CAPSULE BY ity o f 12.5 mg 00:00: MOUTH [place] capsule 00 DAILY Medical Branch LISINOPRIL 3-0 Yes [id number] TAKE 1/2 Univers 40 mg 1-09 TABLET BY ity of tablet 00:00: MOUTH [place] 00 TWICE Medical DAILY Branch HYDRALAZINE 3-0 Yes [id number] TAKE 1 Univers 100 mg 1-09 TABLET BY ity of tablet 00:00: MOUTH [place] 00 THREE Medical TIMES Branch DAILY HYDROCHLORO 2023-0 Yes [id number] 12.5mg TAKE 1 Univers THIAZIDE 1-09 CAPSULE BY ity o f 12.5 mg 00:00: MOUTH [place] capsule 00 DAILY Medical Branch LISINOPRIL 2023-0 Yes [id number] TAKE 1/2 Univers 40 mg 1-09 TABLET BY ity of tablet 00:00: MOUTH [place] 00 TWICE Medical DAILY Branch HYDRALAZINE 2022-0 Yes [id number] TAKE 1 Univers 100 mg 1-09 TABLET BY ity of tablet 00:00: MOUTH THREE Medical TIMES Branch DAILY HYDROCHLORO 2022-0 Yes [id number] 12.5mg TAKE 1 Univers THIAZIDE - CAPSULE BY ity o f 12.5 mg 00:00: MOUTH [place] capsule 00 DAILY Medical Branch LISINOPRIL 2022-0 Yes [id number] TAKE 1/2 Univers 40 mg 1-09 TABLET BY ity of tablet 00:00: MOUTH [place] 00 TWICE Medical DAILY Branch HYDRALAZINE 2022-0 Yes [id number] TAKE 1 Univers 100 mg 1-09 TABLET BY ity of tablet 00:00: MOUTH THREE Medical TIMES Branch DAILY HYDROCHLORO 2022-0 Yes [id number] 12.5mg TAKE 1 Univers THIAZIDE - CAPSULE BY ity o f 12.5 mg 00:00: MOUTH [place] capsule 00 DAILY Medical Branch LISINOPRIL 2022-0 Yes [id number] TAKE 1/2 Univers 40 mg 1-09 TABLET BY ity of tablet 00:00: MOUTH TWICE Medical DAILY Branch HYDRALAZINE 2022-0 Yes [id number] TAKE 1 Univers 100 mg 1-09 TABLET BY ity of tablet 00:00: MOUTH THREE Medical TIMES Branch DAILY HYDROCHLORO 2022-0 Yes [id number] 12.5mg TAKE 1 Univers THIAZIDE 11-09 CAPSULE BY ity o f 12.5 mg 00:00: MOUTH [place] capsule 00 DAILY Medical Branch LISINOPRIL 2022-0 Yes [id number] TAKE 1/2 Univers 40 mg 1-09 TABLET BY ity of tablet 00:00: MOUTH TWICE Medical DAILY Branch HYDRALAZINE 2022-0 Yes [id number] TAKE 1 Univers 100 mg 1-09 TABLET BY ity of tablet 00:00: MOUTH THREE Medical TIMES Branch DAILY hydroCHLORO 3-0 2022- No 12.5mg 1 capsule [facility] thiazide 11-09 (12.5 mg) ity o f (MICROZIDE) 00:00: 00:00 [place] 12.5 mg 00 :00 morning. MD restrepo [facility] hydroCHLORO 2022-0 2022- No 12.5mg 1 capsule Univers thiazide 11-09 (12.5 mg) ity o f (MICROZIDE) 00:00: 00:00 [place] 12.5 mg 00 :00 morning. capsule [facility] cloNIDine 2022- No TAKE 1 Unive rs HCl 11-09-20 TABLET BY ity of (CATAPRES) 00:00: 00:00 MOUTH [place] 0.2 mg 00 :00 THREE MD tablet TIMES Anderso DAILY n [facility] cloNIDine 2022- No TAKE 1 Unive rs HCl 11-0920 TABLET BY ity of (CATAPRES) 00:00: 00:00 MOUTH [place] 0.2 mg 00 :00 THREE MD tablet TIMES Anderso DAILY n [facility] hydrocortis 2022- No UNWRAP AND Univers one 11-06 INSERT ONE ity of (ANUSOL-HC) 00:00: 00:00 (1) [place] 25 mg 00 :00 SUPPOSITOR MD suppository Y IN THE [place] RECTUM n TWICE A Cancer DAY. Amery hydrocortis 2022- No UNWRAP AND Univers one 11-06 INSERT ONE ity of (ANUSOL-HC) 00:00: 00:00 (1) [place] 25 mg 00 :00 SUPPOSITOR MD suppository Y IN THE [place] RECTUM n TWICE A Cancer DAY. [place] METOPROLOL Yes TAKE 1 Unive rs TARTRATE [...] tablet 00 TWICE Medical DAILY Branch METOPROLOL 2023-0 Yes TAKE 1 Unive rs TARTRATE 1-03 [...] 2022- No TAKE 1 Univ ers TARTRATE 1-01 02- TABLET BY ity o f 100 mg 00:00: 00:00 MOUTH [place] tablet 00 :00 TWICE Medical DAILY Branch metoprolol 2022- No TAKE 1 Univ ers tartrate 1-12 31- TABLET BY ity o f (LOPRESSOR) 00:00: 00:00 M[place]TH [place] 100 mg 00 :00 TWICE MD tablet DAILY [facility] metoprolol 2022- No TAKE 1 Univ ers tartrate 11-03 TABLET BY ity o f (LOPRESSOR) 00:00: 00:00 MOUTH [place] 100 mg 00 :00 TWICE MD tablet DAILY [facility] METOPROLOL 2022- No TAKE 1 Univ ers TARTRATE -11-03 TABLET BY ity o f 100 mg 00:00: 00:00 MOUTH [place] tablet 00 :00 TWICE Medical DAILY Branch cetirizine 2021-11- No TAKE 1 Univ ers (ZyrTEC) 10 01-12 TABLET BY it y of mg tablet 00:00: 00:00 M[place]TH [place]CE [place] :00 DAILY MD NEEDED FOR Anderso ALLERGIES [facility] cetirizine 2021-11- No TAKE 1 Univ ers (ZyrTEC) 10 - TABLET BY it y of mg tablet 00:00: 00:00 MOUTH [place]CE [place] 00 :00 DAILY [facility] gabapentin 2021-11 Yes [id number] 600mg Take 1 Univers 600 mg 2-21 [...] Indication s: chronic pain Diclofenac 2021-11 Yes [id number] Apply to Univers Sodium 1 % 2-21 area(s) 3 ity of gel 00:00: (three) [place] 00 times Medical daily. Branch gabapentin 2021-11 Yes [id number] 600mg Take 1 Univers 600 mg 2-21 [...] Indication s: chronic pain Diclofenac 2021-11 Yes [id number] Apply to Univers Sodium 1 % 2-21 area(s) 3 ity of gel 00:00: (three) [place] 00 times Medical daily. Branch gabapentin 2021-11 Yes [id number] 600mg Take 1 Univers 600 mg 2-21 tablet by ity of tablet 00:00: mouth in [place] the Medical morning Branch and 1 tablet at noon and 1 tablet in the evening. HYDROcodone 2021-11 Yes [id number] 1{tbl} Take 1 Un ally -acetaminop 2-21 tablet by ity of hen 7.5-325 00:00: mouth [place] mg per 00 every 6 Medical tablet (six) Branch hours as needed for Pain. Indication s: chronic pain Diclofenac 2021-11 Yes [id number] Apply to Univers Sodium 1 % 2-21 area(s) 3 ity of gel 00:00: (three) [place] 00 times Medical daily. Branch gabapentin 2021-11 Yes [id number] 600mg Take 1 Univers 600 mg 2-21 tablet by ity of tablet 00:00: mouth in [place] 00 the Medical morning Branch and 1 tablet at noon and 1 tablet in the evening. HYDROcodone 2021-11 Yes [id number] 1{tbl} Take 1 Un ally -acetaminop 2-21 tablet by ity of hen 7.5-325 00:00: mouth [place] mg per 00 every 6 Medical tablet (six) Branch hours as needed for Pain. Indication s: chronic pain Diclofenac 2021-11 Yes [id number] Apply to Univers Sodium 1 % 2-21 area(s) 3 ity of gel 00:00: (three) [place] 00 times Medical daily. Branch gabapentin 2021-11 Yes [id number] 600mg Take 1 Univers 600 mg 2-21 [...] Indication s: chronic pain Diclofenac 2021-11 Yes [id number] Apply to Univers Sodium 1 % 2-21 area(s) 3 ity of gel 00:00: (three) [place] 00 times Medical daily. Branch gabapentin 2021-11 Yes [id number] 600mg Take 1 Univers 600 mg 2-21 tablet by ity of tablet 00:00: mouth in [place] 00 the Medical morning Branch and 1 tablet at noon and 1 tablet in the evening. HYDROcodone 2021- Yes [id number] 1{tbl} Take 1 Un ally -acetaminop 2-21 tablet by ity of hen 7.5-325 00:00: mouth [place] mg per 00 every 6 Medical tablet (six) Branch hours as needed for Pain. Indication s: chronic pain Diclofenac 2021-11 Yes [id number] Apply to Univers Sodium 1 % 2-21 area(s) 3 ity of gel 00:00: (three) [place] 00 times Medical daily. Branch gabapentin 2021- Yes [id number] 600mg Take 1 Univers 600 mg 2-21 tablet by ity of tablet 00:00: mouth in [place] 00 the Medical morning Branch and 1 tablet at noon and 1 tablet in the evening. Diclofenac 2021- Yes [id number] Apply to Univers Sodium 1 % 2-21 area(s) 3 ity of gel 00:00: (three) [place] 00 times Medical daily. Branch gabapentin 2021- Yes [id number] 600mg Take 1 Univers 600 mg 2-21 tablet by ity of tablet 00:00: mouth in [place] 00 the Medical morning Branch and 1 tablet at noon and 1 tablet in the evening. Diclofenac 2021-11 Yes [id number] Apply to Univers Sodium 1 % 2-21 area(s) 3 ity of gel 00:00: (three) [place] 00 times Medical daily. Branch gabapentin 2021-11 Yes [id number] 600mg Take 1 Univers 600 mg 2-21 tablet by ity of tablet 00:00: mouth in [place] 00 the Medical morning Branch and 1 tablet at noon and 1 tablet in the evening. Diclofenac 2021-11 Yes [id number] Apply to Univers Sodium 1 % 2-21 area(s) 3 ity of gel 00:00: (three) [place] 00 times Medical daily. Branch gabapentin 2021-11 Yes [id number] 600mg Take 1 Univers 600 mg 2-21 tablet by ity of tablet 00:00: mouth in [place] 00 the Medical morning Branch and 1 tablet at noon and 1 tablet in the evening. Diclofenac 2021-11 Yes [id number] Apply to Univers Sodium 1 % 2-21 area(s) 3 ity of gel 00:00: (three) [place] 00 times Medical daily. Branch gabapentin 2021-11 Yes [id number] 600mg Take 1 Univers 600 mg 2-21 tablet by ity of tablet 00:00: mouth in [place] 00 the Medical morning Branch and 1 tablet at noon and 1 tablet in the evening. Diclofenac 2021-11 Yes [id number] Apply to Univers Sodium 1 % 2-21 area(s) 3 ity of gel 00:00: (three) [place] 00 times Medical daily. Branch gabapentin 2021-11 Yes [id number] 600mg Take 1 Univers 600 mg 2-21 tablet by ity of tablet 00:00: mouth in [place] 00 the Medical morning Branch and 1 tablet at noon and 1 tablet in the evening. Diclofenac 2021-11 Yes [id number] Apply to Univers Sodium 1 % 2-21 area(s) 3 ity of gel 00:00: (three) [place] 00 times Medical daily. Branch diclofenac 2021-11- No APPLY Unive rs sodium 2-21 04-03 TOPICALLY ity of (Voltaren) 00:00: 00:00 TO THE [place] 1 % gel 00 :00 AFFECTED MD AREA THREE [facility]o TIMES n DAILY [facility] Center diclofenac 2021-11- No APPLY Unive rs sodium 12-22- TOPICALLY ity of (Voltaren) 00:00: 00:00 TO THE [place] 1 % gel 00 :00 AFFECTED MD AREA THREE [facility] TIMES n DAILY [facility] gabapentin 2021-11- No TAKE 1 Univ ers (NEURONTIN) 12-22 TABLET BY it y of 600 mg 00:00: 00:00 MOUTH IN [place] tablet 00 :00 THE MD MORNING Anderso AND AT n NOON AND Cancer IN THE Center EVENING HYDROcodone 2021-11- No TAKE 1 Uni vers -acetaminop 12-22 TABLET BY it y of hen (NORCO) 00:00: 00:00 MOUTH [place] 7.5 mg-325 00 :00 EVERY 6 MD mg per HOURS Anderso tablet NEEDED FOR n PAIN OR Cancer CHRONIC Center PAIN gabapentin 2021-11- No TAKE 1 Univ ers (NEURONTIN) 12-22 TABLET BY it y of 600 mg 00:00: 00:00 MOUTH IN [place] tablet 00 :00 THE MD MORNING Anderso AND AT n NOON AND Cancer IN THE Center EVENING HYDROcodone 2021-11- No TAKE 1 Uni vers -acetaminop 12-22 TABLET BY it y of hen (NORCO) 00:00: 00:00 MOUTH [place] 7.5 mg-325 00 :00 EVERY 6 MD mg per HOURS [facility] tablet NEEDED FOR n PAIN OR Cancer CHRONIC Center PAIN HYDROcodone 2021-11- No [id number] 1{tbl} Take 1 U nivers -acetaminop 12-22 tablet by it y of hen 7.5-325 00:00: 00:00 mouth [place] mg per 00 :00 every 6 Medical tablet (six) Branch hours as needed for Pain. Indication s: chronic pain ALPRAZolam 2021-11 Yes every 8 Univ ers (XANAX) 2 2-20 (eight) ity of mg tablet 00:00: hours as [place] 00 needed for MD anxiety. [facility] ALPRAZolam 2021-11 Yes every 8 Univ ers (XANAX) 2 2-20 (eight) ity of mg tablet 00:00: hours as [place] 00 needed for MD anxiety. [facility] albuterol 2021-11 Yes every 6 Unive rs (VENTOLIN 2-19 (six) ity of HFA,PROAIR 00:00: hours as [place] as HFA) 90 00 needed. MD moss/luis a Anderso inhaler [facility] albuterol 2021-11 Yes every 6 Unive rs (VENTOLIN 2-19 (six) ity of HFA,PROAIR 00:00: hours as [place] as HFA) 90 00 needed. MD moss/luis a Anderso inhaler [facility] spironolact 2021-11- No TAKE 1 Uni vers one 2-19 02-14 TABLET BY ity of (ALDACTONE) 00:00: 00:00 MOUTH [place] 25 mg 00 :00 EVERY DAY MD tablet [facility] spironolact 2021-11- No TAKE 1 Uni vers one 2-19 02-14 TABLET BY ity of (ALDACTONE) 00:00: 00:00 MOUTH [place] 25 mg 00 :00 EVERY DAY MD tablet [facility] zolpidem 2021-11 Yes TAKE 1 Univers (AMBIEN) 10 2-17 TABLET BY ity of mg tablet 00:00: MOUTH AT [place] 00 BEDTIME MD NEEDED FOR [facility] INSOMNIA [facility] zolpidem 2021-11 Yes TAKE 1 Univers (AMBIEN) 10 2-17 TABLET BY ity of mg tablet 00:00: MOUTH [place] 00 BEDTIME MD NEEDED FOR [facility] INSOMNIA [facility] ondansetron 2021-11 Yes DISSOLVE 1 Univers 4 [...] tablet 00:00: MOUTH [place] 00 EVERY DAY [facility] pantop[facility]ol 2021-11 Yes TAKE 1 Univ ers e 2-13 TABLET BY ity of (PROTONIX) 00:00: MOUTH [place] 40 mg EC 00 DAILY MD evans [facility] amLODIPine 2021-11 Yes TAKE 1 Unive rs (NORVASC) 5 2-13 TABLET BY ity of mg tablet 00:00: MOUTH [place] 00 EVERY DAY [facility] pantoprazol 2021-11 Yes TAKE 1 Univ ers e 2-13 TABLET BY ity of (PROTONIX) 00:00: MOUTH [place] 40 mg EC 00 DAILY MD tablet [facility] dicyclomine 2021-11- No TAKE 1 Uni vers (BENTYL) 10 2-12 03-20 CAPSULE BY i ty of mg capsule 00:00: 00:00 MOUTH [place] 00 :00 EVERY 8 MD HOURS [facility] dicyclomine 2021-11- No TAKE 1 Uni vers (BENTYL) 10 -12 03-20 CAPSULE BY i ty of mg capsule 00:00: 00:00 MOUTH [place] 00 :00 EVERY 8 MD HOURS [facility] BD DEVORAH 2021-11 Yes 10mg Take 10 mg Univers GEN PEN 2-05 by mouth. ity of NEEDLE 32 00:00: [place] gauge x 00 [place] [address]" Ndle Branch BD DEVORAH 2021-11 Yes 10mg Take 10 mg Univers GEN PEN 2-05 by mouth. ity of NEEDLE 32 00:00: [place] gauge x 00 [facility] " Ndle Branch BD DEVORAH 2021-11 Yes 10mg Take 10 mg Univers GEN PEN 2-05 by mouth. ity of NEEDLE 32 00:00: [place] gauge x 00 [facility] " Ndle Branch BD DEVORAH 2021-11 Yes 10mg Take 10 mg Univers GEN PEN 2-05 by mouth. ity of NEEDLE 32 00:00: [place] gauge x 00 [place] [address]" Ndle Branch BD DEVORAH 2021-11 Yes 10mg [...] NEEDLE 32 00:00: [place] gauge x 00 [place] [address]" Ndle Branch BD DEVORAH 2021-11 Yes 10mg Take 10 mg Univers GEN PEN 2-05 by mouth. ity of NEEDLE 32 00:00: [place] gauge x 00 [place] [address]" Ndle Branch BD DEVORAH 2021-11 Yes 10mg Take 10 mg Univers GEN PEN 2-05 by mouth. ity of NEEDLE 32 00:00: [place] gauge x 00 Medical 32" Ndle Branch BD DEVORAH 2021-11 Yes 10mg Take 10 mg Univers GEN PEN 2-05 by mouth. ity of NEEDLE 32 00:00: [place] gauge x 00 Medical [facility]" Ndle Branch BD DEVORAH 2021-11 Yes 10mg Take 10 mg Univers GEN PEN 2-05 by mouth. ity of NEEDLE 32 00:00: [place] gauge x 00 Medical [facility]" Ndle Branch BD DEVORAH 2021-11 Yes 10mg Take 10 mg Univers GEN PEN 2-05 by mouth. ity of NEEDLE 32 00:00: [place] gauge x 00 [place] [address]" Ndle Branch BD Devorah 2021-11- No USE Uni vers Gen Pen 2-05 12-15 DIRECTED. ity of Needle 32 00:00: 00:00 [place] gauge x 00 :[address] [place] [address] BD Devorah 2021-11- No USE Uni vers Gen Pen 2-05 12-15 DIRECTED. ity of Needle 32 00:00: 00:00 [place] gauge x 00 :[address] [place] [address] LISINOPRIL 2021-11 Yes [id number] TAKE 1/2 Univers 40 mg 2-02 TABLET BY ity of tablet 00:00: MOUTH [place] 00 TWICE Medical DAILY Branch LISINOPRIL 2021-11 Yes [id number] TAKE 1/2 Univers 40 mg 2-02 TABLET BY ity of tablet 00:00: MOUTH [place] 00 TWICE Medical DAILY Branch LISINOPRIL 2021-11 Yes [id number] TAKE 1/2 Univers 40 mg 2-02 TABLET BY ity of tablet 00:00: MOUTH [place] 00 TWICE Medical DAILY Branch LISINOPRIL 2021-11 Yes [id number] TAKE 1/2 Univers 40 mg 2-02 TABLET BY ity of tablet 00:00: MOUTH [place] 00 TWICE Medical DAILY Branch LISINOPRIL 2021-11 Yes [id number] TAKE 1/2 Univers 40 mg 2-02 TABLET BY ity of tablet 00:00: MOUTH [place] 00 TWICE Medical DAILY Branch LISINOPRIL 2021-11- No [id number] TAKE 1/2 Univers 40 mg 2-02 -09 TABLET BY ity of tablet 00:00: 00:00 MOUTH [place] 00 :00 TWICE Medical DAILY Branch hydrALAZINE 2021-11- No TAKE 1 Uni vers (APRESOLINE 12-02 TABLET BY it y of ) 100 mg 00:00: 00:00 MOUTH [place] tablet 00 :00 THREE MD TIMES Anderso DAILY n [facility] Victoza 2021-11- No ADMINISTER Uni vers 2-Patrick 0.6 12-02 1.8 MG ity of mg/0.1 mL 00:00: 00:00 [place]ER THE [place] ([place] mg/3 00 :00 SKIN EVERY MD mL) pnij DAY Anderso injection [facility] lisinopril 2021-11- No TAKE 1/2 Un ally (PRINIVIL,Z 12-02 TABLET BY it y of ESTRIL) 40 00:00: 00:00 MOUTH [place] mg tablet 00 :00 TWICE MD DAILY Anderso [facility] insulin 2021-11- No USE TWICE Univ ers syringe-nee 12-02 DAILY WITH i ty of dle U-100 1 00:00: 00:00 MEALS. [place] as mL 31 gauge 00 :00 x 03/16 [facility] hydrALAZINE 2021-11- No TAKE 1 Uni vers (APRESOLINE 12-02 TABLET BY it y of ) 100 mg 00:00: 00:00 MOUTH [place] tablet 00 :00 THREE MD TIMES Anderso DAILY n [facility] Victoza 2021-11- No ADMINISTER Uni vers 2-Patrick 0.6 12-02 1.8 MG ity of mg/0.1 mL 00:00: 00:00 [place]ER THE [place] ([place] mg/3 00 :00 SKIN EVERY MD mL) pnij DAY Anderso injection [facility] lisinopril 2021-11- No TAKE 1/2 Un ally (PRINIVIL,Z 12-02 TABLET BY it y of ESTRIL) 40 00:00: 00:00 MOUTH [place] mg tablet 00 :00 TWICE MD DAILY Andchrissyo [facility] insulin 2021-11- No USE TWICE Univ ers syringe-nee 12-02 DAILY WITH i ty of dle U-100 1 00:00: 00:00 MEALS. [place] as mL 31 gauge 00 :00 MD [place]ake 03/16 [facility]ne [facility] allopurinol 2021-11- No 100mg Take 100 Univers [...] Indication s: chronic pain metFORMIN 2021-11 Yes [id number] 1000mg Take 1 Univers 1,000 mg 1-21 tablet by ity of tablet 00:00: mouth in [place] 00 the Medical morning Branch and 1 tablet in the evening. Take with meals. HYDROcodone 2021-11 Yes [id number] 1{tbl} Take 1 Un ally -acetaminop 1-21 tablet by ity of hen 7.5-325 00:00: mouth [place] mg per 00 every 6 Medical tablet (six) Branch hours as needed for Pain. Indication s: chronic pain metFORMIN 2021-11 Yes [id number] 1000mg Take 1 Univers 1,000 mg 1-21 tablet by ity of tablet 00:00: mouth in [place] 00 the Medical morning Branch and 1 tablet in the evening. Take with meals. HYDROcodone 2021-11 Yes [id number] 1{tbl} Take 1 Un ally -acetaminop 1-21 tablet by ity of hen 7.5-325 00:00: mouth [place] mg per 00 every 6 Medical tablet (six) Branch hours as needed for Pain. Indication s: chronic pain metFORMIN 2021-11 Yes [id number] 1000mg Take 1 Univers 1,000 mg 1-21 tablet by ity of tablet 00:00: mouth in [place] [address] the [facility] morning [place] and 1 tablet in the evening. Take with meals. HYDROcodone 2021-11 Yes [id number] 1{tbl} Take 1 Un ally -acetaminop 1-21 tablet by ity of hen 7.5-325 00:00: mouth [place] mg per 00 every 6 Medical tablet (six) Branch hours as needed for Pain. Indication s: chronic pain metFORMIN 2021-11 Yes [id number] 1000mg Take 1 Univers 1,000 mg 1-21 tablet by ity of tablet 00:00: mouth in [address] and 1 tablet in the evening. Take with meals. metFORMIN 2021-11 Yes [id number] 1000mg Take 1 Univers 1,000 mg 1-21 tablet by ity of tablet 00:00: mouth in [address] and 1 tablet in the evening. Take with meals. neomycin-po 2021-11 Yes INSTILL 4 U nivers lymyxin-hyd 1-21 DROPS TO ity of rocortisone 00:00: AFFECTED [place] otic 00 EAR FOUR Medical solution TIMES Branch DAILY metFORMIN 2021-11 Yes [id number] 1000mg Take 1 Univers 1,000 mg 1-21 tablet by ity of tablet 00:00: mouth in [address] and 1 tablet in the evening. Take with meals. neomycin-po 2021-11 Yes INSTILL 4 U nivers lymyxin-hyd 1-21 DROPS TO ity of rocortisone 00:00: AFFECTED [place] otic 00 EAR FOUR Medical solution TIMES Branch DAILY metFORMIN 2021-11 Yes [id number] 1000mg Take 1 Univers 1,000 mg 1-21 tablet by ity of tablet 00:00: mouth in [address] and 1 tablet in the evening. Take with meals. neomycin-po 2021-11 Yes INSTILL 4 U nivers lymyxin-hyd 1-21 DROPS TO ity of rocortisone 00:00: AFFECTED [place] otic 00 EAR FOUR Medical solution TIMES Branch DAILY metFORMIN 2021-11 Yes [id number] 1000mg Take 1 Univers 1,000 mg 1-21 tablet by ity of tablet 00:00: mouth in [address] morning [place] and 1 tablet in the evening. Take with meals. neomycin-po 2021-11 Yes INSTILL 4 U nivers lymyxin-hyd 1-21 DROPS TO ity of rocortisone 00:00: AFFECTED [place] otic 00 EAR FOUR Medical solution TIMES Branch DAILY metFORMIN 2021-11 Yes [id number] 1000mg Take 1 Univers 1,000 mg 1-21 tablet by ity of tablet 00:00: mouth in [address] morning [place] and 1 tablet in the evening. Take with meals. neomycin-po 2021-11 Yes INSTILL 4 U nivers lymyxin-hyd 1-21 DROPS TO ity of rocortisone 00:00: AFFECTED [place] otic 00 EAR FOUR Medical solution TIMES Branch DAILY metFORMIN 2021-11 Yes [id number] 1000mg Take 1 Univers 1,000 mg 1-21 tablet by ity of tablet 00:00: mouth in [address] and 1 tablet in the evening. Take with meals. neomycin-po 2021-11 Yes INSTILL 4 U nivers lymyxin-hyd 1-21 DROPS TO ity of rocortisone 00:00: AFFECTED [place] otic 00 EAR FOUR Medical solution TIMES Branch DAILY metFORMIN 2021-11 Yes [id number] 1000mg Take 1 Univers 1,000 mg 1-21 tablet by ity of tablet 00:00: mouth in [address] and 1 tablet in the evening. Take with meals. neomycin-po 2021-11 Yes INSTILL 4 U nivers lymyxin-hyd 1-21 DROPS TO ity of rocortisone 00:00: AFFECTED [place] otic 00 EAR FOUR Medical solution TIMES Branch DAILY metFORMIN 2021-11 Yes [id number] 1000mg Take 1 Univers 1,000 mg 1-21 tablet by ity of tablet 00:00: mouth in [address] and 1 tablet in the evening. Take with meals. neomycin-po 2021-11 Yes INSTILL 4 U nivers lymyxin-hyd 1-21 DROPS TO ity of rocortisone 00:00: AFFECTED [place] otic 00 EAR FOUR Medical solution TIMES Branch DAILY metFORMIN 2021-11 Yes [id number] 1000mg Take 1 [facility] 1,000 mg 1-21 tablet by ity of tablet 00:00: mouth in [place] [address] the Medical morning Branch and 1 tablet in the evening. Take with meals. neomycin-po 2021-11 Yes INSTILL 4 U nivers lymyxin-hyd 1-21 DROPS TO ity of rocortisone 00:00: AFFECTED [place] otic 00 EAR FOUR Medical solution TIMES Branch DAILY metFORMIN 2021-11 Yes [id number] 1000mg Take 1 [facility] 1,000 mg 1-21 tablet by ity of tablet 00:00: mouth in [place] [address] the Medical morning Branch and 1 tablet in the evening. Take with meals. neomycin-po 2021-11 Yes INSTILL 4 U nivers lymyxin-hyd 1-21 DROPS TO ity of rocortisone 00:00: [place] [facility] 00 EAR FOUR Medical solution TIMES Branch DAILY metFORMIN 2021-11 Yes [id number] 1000mg Take 1 [facility] 1,000 mg 1-21 tablet by ity of tablet 00:00: mouth in [place] [address] the Medical morning [place] and 1 tablet in the evening. Take with meals. neomycin-po 2021-11 Yes INSTILL 4 U nivers lymyxin-hyd 1-21 DROPS TO ity of rocortisone 00:00: [place] 00 EAR FOUR Medical solution TIMES Branch DAILY metFORMIN 2021-11 Yes [id number] 1000mg Take 1 [facility] 1,000 mg 1-21 tablet by ity of tablet 00:00: mouth in [place] [address] the [facility] morning [place] and 1 tablet in the evening. Take with meals. neomycin-po 2021-11 Yes INSTILL 4 U nivers lymyxin-hyd 1-21 DROPS TO ity of rocortisone 00:00: [place]ED [place] 00 EAR FOUR Medical solution TIMES Branch DAILY colchicine 2021-11- No TAKE 1 Univ ers (COLCRYS) 1-21 03-20 TABLET BY ity of 0.6 mg 00:00: 00:00 MOUTH [place] tablet 00 :00 DAILY MD [facility] colchicine 2021-11- No TAKE 1 Univ ers (COLCRYS) 1-21 03-20 TABLET BY ity of 0.6 mg 00:00: 00:00 MOUTH [place] tablet 00 :00 DAILY MD [facility] metFORMIN 2021-11- No TAKE 1 Unive rs (GLUCOPHAGE 11-21-14 TABLET BY it y of ) 1000 mg 00:00: 00:00 MOUTH IN [place] tablet 00 :00 THE MORNING [place] AND IN THE n EVENING [facility] metFORMIN 2021-11- No TAKE 1 Unive rs (GLUCOPHAGE 11-21-14 TABLET BY it y of ) 1000 mg 00:00: 00:00 MOUTH IN [place] tablet 00 :00 THE MORNING [place] AND IN THE n EVENING [facility] WITH MEALS Center HYDROcodone 2021-11 No [id number] 1{tbl} Take 1 U nivers -acetaminop -21 10-21 tablet by it y of hen 7.5-325 00:00: 00:00 [place] mg per 00 :00 every 6 Medical tablet (six) Branch hours as needed for Pain. Indication s: chronic pain HYDROcodone 2021-11 No [id number] 1{tbl} Take 1 U nivers -acetaminop -21 10- tablet by it y of hen 7.5-325 00:00: 00:00 [place] mg per 00 :00 every 6 Medical tablet (six) Branch hours as needed for Pain. Indication s: chronic pain Trelegy 2021-11 Yes INHALE 1 Univer s Ellipta 1-18 PUFF BY ity of 100-62.5-25 00:00: MOUTH [place] mcg dsdv 00 EVERY DAY MD [facility] Trelegy 2021-11 Yes INHALE 1 Univer s Ellipta 1-18 PUFF BY ity of 100-62.5-25 00:00: MOUTH [place] mcg dsdv 00 EVERY DAY MD [facility] nitroglycer 2021-11- No PLACE 1 Un ally in 11-18 03-14 TABLET ity of (NITROSTAT) 00:00: 00:00 UNDER THE [place] 0.4 mg SL 00 :00 TONGUE tablet EVERY 5 Anderso YURI olivier FOR CHEST Cancer PAIN. Center nitroglycer 2021-11- No PLACE 1 Un ally in 11-18 03-14 TABLET ity of (NITROSTAT) 00:00: 00:00 UNDER THE [place] 0.4 mg SL 00 :00 TONGUE tablet EVERY 5 Anderso MINUTES n FOR CHEST Cancer PAIN. [place] GABAPENTIN 2021-11 Yes [id number] TAKE 1 [facility] 600 mg 1-17 TABLET BY ity of tablet 00:00: [place] [address] THREE Medical TIMES Branch DAILY GABAPENTIN 2021- Yes [id number] TAKE 1 [facility] 600 mg 1-17 TABLET BY ity of tablet 00:00: [place] [address] THREE Medical TIMES Branch DAILY GABAPENTIN 2021- Yes [id number] TAKE 1 [facility] 600 mg 1-17 TABLET BY ity of tablet 00:00: [facility] 00 THREE Medical TIMES Branch DAILY GABAPENTIN 2021- Yes [id number] TAKE 1 [facility] 600 mg 1-17 TABLET BY ity of tablet 00:00: [place] [address] THREE Medical TIMES Branch DAILY GABAPENTIN 2021- Yes [id number] TAKE 1 [facility] 600 mg 1-17 TABLET BY ity of tablet 00:00: [place] [address] THREE Medical TIMES Branch DAILY GABAPENTIN 2021-11 Yes [id number] TAKE 1 [facility] 600 mg 1-17 TABLET BY ity of tablet 00:00: [place] [address] THREE Medical TIMES Branch DAILY GABAPENTIN 2021- 202- No [id number] TAKE 1 [facility] 600 mg 1-17 12-21 TABLET BY ity of tablet 00:00: 00:00 [facility] 00 :00 THREE Medical TIMES Branch DAILY GABAPENTIN 2021- 202- No [id number] TAKE 1 [facility] 600 mg 1-17 12-21 TABLET BY ity of tablet 00:00: 00:00 [facility] 00 :00 THREE Medical TIMES Branch DAILY ALPRAZolam 2021-11 Yes 2mg Take 2 mg Un ally 2 mg tablet 1-12 by mouth 3 it y of 00:00: (three) [place] 00 times Medical daily as Branch needed. atorvastati 2021-11 Yes 20mg Take 20 mg Univers n 20 mg 1-12 by mouth ity of tablet 00:00: in the [place] 00 morning. Medical Branch ALPRAZolam 2021-11 Yes 2mg Take 2 mg Un ally 2 mg tablet 1-12 by mouth 3 it y of 00:00: (three) [place] 00 times Medical daily as Branch needed. atorvastati 2021-11 Yes 20mg Take 20 mg Univers n 20 mg 1-12 by mouth ity of tablet 00:00: in the [place] 00 morning. Medical Branch ALPRAZolam 2021-11 Yes 2mg Take 2 mg Un ally 2 mg tablet 1-12 by mouth 3 it y of 00:00: (three) [place] 00 times Medical daily as Branch needed. atorvastati 2021- Yes 20mg Take 20 mg Univers n 20 mg 1-12 by mouth ity of tablet 00:00: in the [place] 00 morning. Medical Branch ALPRAZolam 2021-11 Yes 2mg Take 2 mg Un ally 2 mg tablet 1-12 by mouth 3 it y of 00:00: (three) [place] 00 times Medical daily as Branch needed. atorvastati 2021- Yes 20mg Take 20 mg Univers n 20 mg 1-12 by mouth ity of tablet 00:00: in the [place] 00 morning. Medical Branch ALPRAZolam 2021-11 Yes 2mg Take 2 mg Un ally 2 mg tablet 1-12 by mouth 3 it y of 00:00: (three) [place] 00 times Medical daily as Branch needed. atorvastati 2021-11 Yes 20mg Take 20 mg Univers n 20 mg 1-12 by mouth ity of tablet 00:00: in the [place] 00 morning. Medical Branch ALPRAZolam 2021-11 Yes 2mg Take 2 mg Un ally 2 mg tablet 1-12 by mouth 3 it y of 00:00: (three) [place] 00 times Medical daily as Branch needed. atorvastati 2021-11 Yes 20mg Take 20 mg [facility] n 20 mg 1-12 by mouth ity of tablet 00:00: in the [place] 00 morning. Medical Branch ALPRAZolam 2021-11 Yes 2mg Take 2 mg Un ally 2 mg tablet 1-12 by mouth 3 it y of 00:00: (three) [place] 00 times Medical daily as Branch needed. atorvastati 2021- Yes 20mg Take 20 mg Univers n 20 mg 1-12 by mouth ity of tablet 00:00: in the [place] 00 morning. Medical Branch ALPRAZolam 2021-11 Yes 2mg Take 2 mg Un ally 2 mg tablet 1-12 by mouth 3 it y of 00:00: (three) [place] 00 times Medical daily as Branch needed. atorvastati 2021- Yes 20mg Take 20 mg Univers n 20 mg 1-12 by mouth ity of tablet 00:00: in the [place] 00 morning. Medical Branch ALPRAZolam 2021-11 Yes 2mg Take 2 mg Un ally 2 mg tablet 1-12 by mouth 3 it y of 00:00: (three) [place] 00 times Medical daily as Branch needed. atorvastati 2021- Yes 20mg Take 20 mg Univers n 20 mg 1-12 by mouth ity of tablet 00:00: in the [place] 00 morning. Medical Branch ALPRAZolam 2021- Yes 2mg Take 2 mg Un ally 2 mg tablet 1-12 by mouth 3 it y of 00:00: (three) [place] 00 times Medical daily as Branch needed. atorvastati 2021- Yes 20mg Take 20 mg Univers n 20 mg 1-12 by mouth ity of tablet 00:00: in the [place] 00 morning. Medical Branch ALPRAZolam 2021-11 Yes 2mg Take 2 mg Un ally 2 mg tablet 1-12 by mouth 3 it y of 00:00: (three) [place] 00 times Medical daily as Branch needed. atorvastati 2021- Yes 20mg Take 20 mg Univers n 20 mg 1-12 by mouth ity of tablet 00:00: in the [place] 00 morning. Medical Branch ALPRAZolam 2021-11 Yes 2mg Take 2 mg Un ally 2 mg tablet 1-12 by mouth 3 it y of 00:00: (three) [place] 00 times Medical daily as Branch needed. atorvastati 2021- Yes 20mg Take 20 mg Univers n 20 mg 1-12 by mouth ity of tablet 00:00: in the [place] 00 morning. Medical Branch ALPRAZolam 2021- Yes 2mg Take 2 mg Un ally 2 mg tablet 1-12 by mouth 3 it y of 00:00: (three) [place] 00 times Medical daily as Branch needed. atorvastati 2021- Yes 20mg Take 20 mg Univers n 20 mg 1-12 by mouth ity of tablet 00:00: in the [place] 00 morning. Medical Branch ALPRAZolam 2021- Yes 2mg Take 2 mg Un ally 2 mg tablet 1-12 by mouth 3 it y of 00:00: (three) [place] 00 times Medical daily as Branch needed. atorvastati 2021- Yes 20mg Take 20 mg Univers n 20 mg 1-12 by mouth ity of tablet 00:00: in the [place] 00 morning. Medical Branch ALPRAZolam 2021-11 Yes 2mg Take 2 mg Un ally 2 mg tablet 1-12 by mouth 3 it y of 00:00: (three) [place] 00 times Medical daily as Branch needed. atorvastati 2021-11 Yes 20mg Take 20 mg Univers n 20 mg 1-12 by mouth ity of tablet 00:00: in the [place] morning. Medical Branch ALPRAZolam 2021-11 Yes 2mg Take 2 mg Un ally 2 mg tablet 1-12 by mouth 3 it y of 00:00: (three) [place] 00 times Medical daily as Branch needed. atorvastati 2021-11 Yes 20mg Take 20 mg Univers n 20 mg 1-12 by mouth ity of tablet 00:00: in the [place] morning. Medical Branch atorvastati 2021-11 Yes TAKE 1 Univ ers n (LIPITOR) 1-12 TABLET BY ity of 20 mg 00:00: MOUTH [place] tablet 00 EVERY DAY MD [facility] atorvastati 2021-11 Yes TAKE 1 Univ ers n (LIPITOR) 1-12 TABLET BY ity of 20 mg 00:00: MOUTH [place] tablet 00 EVERY DAY MD [facility] hydrocortis 2021-11 Yes APPLY Unive rs one 1 % 1-10 TWICE ity of cream 00:00: DAILY IN [place] 00 AND AROUND Medical THE RECTUM Branch AFTER SITZ BATH hydrocortis 2021-11 Yes APPLY Unive rs one 1 % 1-10 TWICE ity of cream 00:00: DAILY IN [place] 00 AND AROUND Medical THE RECTUM Branch AFTER SITZ BATH hydrocortis 2021-11 Yes APPLY Unive rs one 1 % 1-10 TWICE ity of cream 00:00: DAILY IN [place] 00 AND AROUND Medical THE RECTUM Branch AFTER SITZ BATH hydrocortis 2021-11 Yes APPLY Unive rs one 1 % 1-10 TWICE ity of cream 00:00: DAILY IN [place] 00 AND AROUND Medical THE RECTUM Branch AFTER SITZ [place]ATH hydrocortis 2021-11 Yes APPLY Unive rs one 1 % 1-10 TWICE ity of cream 00:00: DAILY IN [place] 00 AND AROUND Medical THE RECTUM Branch AFTER SITZ BATH hydrocortis 2021-11 Yes APPLY Unive rs one 1 % 1-10 TWICE ity of cream 00:00: DAILY IN [place] 00 AND AROUND Medical THE RECTUM Branch [...] APPLY Univ ers one 1 % 1-10 -14 TWICE ity of crpe 00:00: 00:00 DAILY IN [place] 00 :00 AND AROUND MD THE RECTUM [place] [facility] hydrocortis 2021-11- No APPLY Univ ers one 1 % 1-10 -14 TWICE ity of crpe 00:00: 00:00 DAILY IN [place] 00 :00 AND AROUND MD THE RECTUM [place] AFTER [facility] benzonatate 2021-11 Yes TAKE 1 Univ ers [...] by ity of tablet 00:00: mouth in [place] the Medical morning Branch and 0.1 mg at noon and 0.1 mg in the evening. benzonatate 2021-11 Yes TAKE 1 Univ ers 100 mg 1-05 CAPSULE BY ity of capsule 00:00: MOUTH [place] 00 THREE Medical TIMES Branch DAILY NEEDED [...] by ity of tablet 00:00: mouth in [place] 00 the Medical morning Branch and 0.1 mg at noon and 0.1 mg in the evening. benzonatate 2021-11 Yes TAKE 1 Univ ers 100 mg 1-05 CAPSULE BY ity of capsule 00:00: MOUTH [place] THREE Medical TIMES Branch DAILY NEEDED FOR [...] by ity of tablet 00:00: mouth in [place] 00 the Medical morning Branch and 0.1 [...] by ity of tablet 00:00: mouth in [place] 00 the Medical morning Branch and 0.1 mg at noon and 0.1 mg in the evening. benzonatate 2021-11 Yes TAKE 1 Univ ers 100 mg 1-05 CAPSULE BY ity of capsule 00:00: MOUTH [place] THREE Medical TIMES Branch DAILY NEEDED FOR [...] by ity of tablet 00:00: mouth in [place] the Medical morning Branch and 0.1 mg at noon and 0.1 mg in the evening. benzonatate 2021-11 Yes TAKE 1 Univ ers 100 mg 1-05 CAPSULE BY ity of capsule 00:00: MOUTH [place] THREE Medical TIMES Branch DAILY NEEDED FOR [...] by ity of tablet 00:00: mouth in [place] the Medical morning Branch and 0.1 mg at noon and 0.1 mg in the evening. benzonatate 2021-11 Yes TAKE 1 Univ ers 100 mg 1-05 CAPSULE BY ity of capsule 00:00: MOUTH [place] THREE Medical TIMES Branch DAILY NEEDED FOR [...] by ity of tablet 00:00: mouth in [place] the Medical morning Branch and 0.1 mg at noon and 0.1 mg in the evening. benzonatate 2021-11 Yes TAKE 1 Univ ers 100 mg 1-05 CAPSULE BY ity of capsule 00:00: MOUTH [place] THREE Medical TIMES Branch DAILY NEEDED FOR [...] by ity of tablet 00:00: mouth in [place] the Medical morning Branch and 0.1 mg at noon and 0.1 mg in the evening. benzonatate 2021-11 Yes TAKE 1 Univ ers 100 mg 1-05 CAPSULE BY ity of capsule 00:00: MOUTH [place] [address] THREE Medical TIMES Branch DAILY NEEDED FOR [...] by ity of tablet 00:00: mouth in [place] 00 the Medical morning Branch and 0.1 mg at noon and 0.1 mg in the evening. benzonatate 2021-11 Yes TAKE 1 Univ ers 100 mg 1-05 CAPSULE BY ity of capsule 00:00: MOUTH [place] 00 THREE Medical TIMES Branch DAILY NEEDED [...] by ity of tablet 00:00: mouth in [place] 00 the Medical morning Branch and 0.1 mg at noon and 0.1 mg in the evening. benzonatate 2021-11 Yes TAKE 1 Univ ers 100 mg 1-05 CAPSULE BY ity of capsule 00:00: MOUTH [place] 00 THREE Medical TIMES Branch DAILY NEEDED [...] by ity of tablet 00:00: mouth in [place] 00 the Medical morning Branch and 0.1 mg at noon and 0.1 mg in the evening. benzonatate 2021-11 Yes TAKE 1 Univ ers 100 mg 1-05 CAPSULE BY ity of capsule 00:00: MOUTH [place] 00 THREE Medical TIMES Branch DAILY NEEDED [...] by ity of tablet 00:00: mouth in [place] 00 the Medical morning Branch and 0.1 mg at noon and 0.1 mg in the evening. benzonatate 2021-11 Yes TAKE 1 Univ ers 100 mg 1-05 CAPSULE BY ity of capsule 00:00: MOUTH [place] 00 THREE Medical TIMES Branch DAILY NEEDED [...] mg in the evening. LISINOPRIL 2021-11 Yes [id number] TAKE 1/2 [facility] 40 mg 1-04 TABLET BY ity of tablet 00:00: MOUTH [place] 00 TWICE Medical DAILY Branch LISINOPRIL 2021-11 Yes [id number] TAKE 1/2 [facility] 40 mg 1-04 TABLET BY ity of tablet 00:00: MOUTH [place] 00 TWICE Medical DAILY Branch LISINOPRIL 2021-11 Yes [id number] TAKE 1/2 [facility] 40 mg 1-04 TABLET BY ity of tablet 00:00: MOUTH [place] 00 TWICE Medical DAILY Branch LISINOPRIL 2021-11 Yes [id number] TAKE 1/2 [facility] 40 mg 1-04 TABLET BY ity of tablet 00:00: MOUTH [place] 00 TWICE Medical DAILY Branch LISINOPRIL 2021-11 Yes [id number] TAKE 1/2 [facility] 40 mg 1-04 TABLET BY ity of tablet 00:00: MOUTH [place] 00 TWICE Medical DAILY Branch LISINOPRIL 2021-11 Yes [id number] TAKE 1/2 [facility] 40 mg 1-04 TABLET BY ity of tablet 00:00: MOUTH [place] 00 TWICE Medical DAILY Branch LISINOPRIL 2021-11 Yes [id number] TAKE 1/2 [facility] 40 mg 1-04 TABLET BY ity of tablet 00:00: MOUTH [place] 00 TWICE Medical DAILY Branch LISINOPRIL 2021-11 [id number] TAKE 1/2 [facility] 40 mg 1-04 12-02 TABLET BY ity of tablet 00:00: 00:00 MOUTH [place] 00 :00 TWICE Medical DAILY Branch hydrALAZINE 2021-11 Yes [id number] TAKE 1 [facility] 100 mg 1-03 TABLET BY ity of tablet 00:00: MOUTH [place] 00 THREE Medical TIMES Branch DAILY lisinopriL 2021-11 Yes [id number] TAKE 1/2 [facility] 40 mg 1-03 TABLET BY ity of tablet 00:00: MOUTH [place] 00 TWICE Medical DAILY Branch metoprolol 2021-11 Yes TAKE 1 Unive rs tartrate 1-03 TABLET BY ity of 100 mg 00:00: MOUTH [place] tablet 00 TWICE Medical DAILY Branch hydrALAZINE 2021-11 Yes [id number] TAKE 1 [facility] 100 mg 1-03 TABLET BY ity of tablet 00:00: MOUTH [place] 00 THREE Medical TIMES Branch DAILY metoprolol 2021-11 Yes TAKE 1 Unive rs tartrate 1-03 TABLET BY ity of 100 mg 00:00: MOUTH [place] tablet 00 TWICE Medical DAILY Branch hydrALAZINE 2021-11 Yes [id number] TAKE 1 [facility] 100 mg 1-03 TABLET BY ity of tablet 00:00: MOUTH [place] 00 THREE Medical TIMES Branch DAILY metoprolol 2021-11 Yes TAKE 1 Unive rs tartrate 1-03 TABLET BY ity of 100 mg 00:00: MOUTH [place] tablet 00 TWICE Medical DAILY Branch hydrALAZINE 2021-11 Yes [id number] TAKE 1 [facility] 100 mg 1-03 TABLET BY ity of tablet 00:00: MOUTH [place] 00 THREE Medical TIMES Branch DAILY metoprolol 2021-11 Yes TAKE 1 Unive rs tartrate 1-03 TABLET BY ity of 100 mg 00:00: MOUTH [place] tablet 00 TWICE Medical DAILY Branch hydrALAZINE 2021-11 Yes [id number] TAKE 1 [facility] 100 mg 1-03 TABLET BY ity of tablet 00:00: MOUTH [place] 00 THREE Medical TIMES Branch DAILY metoprolol 2021-11 Yes TAKE 1 Unive rs tartrate 1-03 TABLET BY ity of 100 mg 00:00: MOUTH [place] tablet 00 TWICE Medical DAILY Branch hydrALAZINE 2021-11 Yes [id number] TAKE 1 [facility] 100 mg 1-03 TABLET BY ity of tablet 00:00: MOUTH [place] 00 THREE Medical TIMES Branch DAILY metoprolol 2021-11 Yes TAKE 1 Unive rs tartrate 1-03 TABLET BY ity of 100 mg 00:00: MOUTH [place] tablet 00 TWICE Medical DAILY Branch hydrALAZINE 2021-11 Yes [id number] TAKE 1 [facility] 100 mg 1-03 TABLET BY ity of tablet 00:00: MOUTH [place] 00 THREE Medical TIMES Branch DAILY metoprolol 2021-11 Yes TAKE 1 Unive rs tartrate 1-03 TABLET BY ity of 100 mg 00:00: MOUTH [place] tablet 00 TWICE Medical DAILY Branch hydrALAZINE 2021-11 Yes [id number] TAKE 1 [facility] 100 mg 1-03 TABLET BY ity of tablet 00:00: MOUTH [place] 00 THREE Medical TIMES Branch DAILY metoprolol 2021-11 Yes TAKE 1 Unive rs tartrate 1-03 TABLET BY ity of 100 mg 00:00: MOUTH [place] tablet 00 TWICE Medical DAILY Branch hydrALAZINE 2021-11 Yes [id number] TAKE 1 [facility] 100 mg 1-03 TABLET BY ity of tablet 00:00: MOUTH [place] 00 THREE Medical TIMES Branch DAILY metoprolol 2021-11 Yes TAKE 1 Unive rs tartrate 1-03 TABLET BY ity of 100 mg 00:00: MOUTH [place] tablet 00 TWICE Medical DAILY Branch hydrALAZINE 2021-11 Yes [id number] TAKE 1 [facility] 100 mg 1-03 TABLET BY ity of tablet 00:00: MOUTH [place] 00 THREE Medical TIMES Branch DAILY metoprolol 2021-11 Yes TAKE 1 Unive rs tartrate 1-03 TABLET BY ity of 100 mg 00:00: MOUTH [place] tablet 00 TWICE Medical DAILY Branch hydrALAZINE 2021-11 Yes [id number] TAKE 1 [facility] 100 mg -03 TABLET BY ity of tablet 00:00: MOUTH [place] 00 THREE Medical TIMES Branch DAILY metoprolol 2021-11 Yes TAKE 1 Unive rs tartrate -03 TABLET BY ity of 100 mg 00:00: MOUTH [place] tablet 00 TWICE Medical DAILY Branch hydrALAZINE 2021-11 Yes [id number] TAKE 1 [facility] 100 mg -03 TABLET BY ity of tablet 00:00: MOUTH [place] 00 THREE Medical TIMES Branch DAILY hydrALAZINE 2021-11 Yes [id number] TAKE 1 [facility] 100 mg -03 TABLET BY ity of tablet 00:00: MOUTH [place] 00 THREE Medical TIMES Branch DAILY hydrALAZINE 2021-11- No [id number] TAKE 1 [facility] 100 mg -12 30- TABLET BY ity of tablet 00:00: 00:00 MOUTH [place] 00 :00 THREE Medical TIMES Branch DAILY metoprolol 2021-11- No TAKE 1 Univ ers tartrate 11-03 TABLET BY ity o f 100 mg 00:00: 00:00 MOUTH [place] tablet 00 :00 TWICE Medical DAILY Branch lisinopriL 2021-11- No [id number] TAKE 1/2 [facility] 40 mg 11-03 TABLET BY ity of tablet 00:00: 00:00 MOUTH [place] 00 :00 TWICE Medical DAILY Branch allopurinoL 2021-11 Yes 300mg Take 300 U nivers 300 mg 1-01 mg by ity of tablet 00:00: mouth in [place] 00 the Medical morning Branch and 300 mg in the evening. allopurinoL 2021-11 Yes 300mg Take 300 U nivers 300 mg 1-01 mg by ity of tablet 00:00: mouth in [place] 00 the Medical morning Branch and 300 mg in the evening. allopurinoL 2021-11 Yes 300mg Take 300 U nivers 300 mg 1-01 mg by ity of tablet 00:00: mouth in [place] 00 the Medical morning Branch and 300 mg in the evening. allopurinoL 2021-11 Yes 300mg Take 300 U nivers 300 mg 1-01 mg by ity of tablet 00:00: mouth in [place] 00 the Medical morning Branch and 300 mg in the evening. allopurinoL 2022-1 Yes 300mg Take 300 U nivers 300 mg 1-01 mg by ity of tablet 00:00: mouth in [place] 00 the Medical morning Branch and 300 mg in the evening. allopurinoL 2022-1 Yes 300mg Take 300 U nivers 300 mg 1-01 mg by ity of tablet 00:00: mouth in [place] 00 the Medical morning Branch and 300 mg in the evening. allopurinoL 2022-1 Yes 300mg Take 300 U nivers 300 mg 1-01 mg by ity of tablet 00:00: mouth in [place] 00 the Medical morning Branch and 300 mg in the evening. allopurinoL 2022-1 Yes 300mg Take 300 U nivers 300 mg 1-01 mg by ity of tablet 00:00: mouth in [place] 00 the Medical morning Branch and 300 mg in the evening. allopurinoL 2-1 Yes 300mg Take 300 U nivers 300 mg 1-01 mg by ity of tablet 00:00: mouth in [place] 00 the Medical morning Branch and 300 mg in the evening. allopurinoL 2-1 Yes 300mg Take 300 U nivers 300 mg 1-01 mg by ity of tablet 00:00: mouth in [place] [address] the Medical morning Branch and 300 mg in the evening. allopurinoL 2-1 Yes 300mg Take 300 U nivers 300 mg 1-01 mg by ity of tablet 00:00: mouth in [place] 00 the Medical morning Branch and 300 mg in the evening. allopurinoL 2-1 Yes 300mg Take 300 U nivers 300 mg 1-01 mg by ity of tablet 00:00: mouth in [place] 00 the Medical morning Branch and 300 mg in the evening. allopurinoL 2-1 Yes 300mg Take 300 U nivers 300 mg 1-01 mg by ity of tablet 00:00: mouth in [place] 00 the Medical morning Branch and 300 mg in the evening. allopurinoL 2022-1 Yes 300mg Take 300 U nivers 300 mg 1-01 mg by ity of tablet 00:00: mouth in [place] [address] the Medical morning Branch and 300 mg in the evening. allopurinoL 2022-1 Yes 300mg Take 300 U nivers 300 mg 1-01 mg by ity of tablet 00:00: mouth in [place] [address] the Medical morning Branch and 300 mg in the evening. allopurinoL 2022-1 Yes 300mg Take 300 U nivers 300 mg 1-01 mg by ity of tablet 00:00: mouth in [place] 00 the Medical morning Branch and 300 mg in the evening. allopurinol 2021-11- No TAKE 1 Uni vers (ZYLOPRIM) 11-01 03-20 TABLET BY ity of 300 mg 00:00: 00:00 MOUTH [place] tablet 00 :00 TWICE MD DAILY [facility] allopurinol 2021-11- No TAKE 1 Uni vers (ZYLOPRIM) 11-01-20 TABLET BY ity of 300 mg 00:00: 00:00 MOUTH [place] tablet 00 :00 TWICE MD DAILY [facility] triamcinolo 2021-11 Yes APPLY Unive rs ne [...] :00 AFFECTED MD AREA TWICE [place] DAILY [facility] triamcinolo 2021-11- No APPLY Univ ers ne 0-28 03-14 TOPICALLY ity of (KENALOG) 00:00: 00:00 TO THE [place] 0.1% cream 00 :00 AFFECTED MD AREA TWICE [place] DAILY [facility] ketorolac 2021-11- No [id number] 30mg Univers (TORADOL) 0-25 10-25 9105 ity of injection 16:45: 16:45 [place] 30 mg 00 :00 [facility] ketorolac 2021-11- No [id number] 30mg 30 mg, Univers (TORADOL) 0-25 08-25 Intramuscu ity of injection 16:45: 16:45 [place] ONCE, [place] 30 mg 00 :00 1 dose, On [facility] 08/25/22 at 1145, Routine ketorolac 2021-11- No [id number] 30mg Univers (TORADOL) 0-25 08-25 ity of injection 16:45: 16:45 [place] 30 mg 00 :00 [facility] ketorolac 2021-11- No [id number] 30mg 30 mg, Univers (TORADOL) 0-25 08-25 Intramuscu ity of injection 16:45: 16:45 [place], ONCE, [place] 30 mg 00 :00 1 dose, On [facility] 08/25/22 at 1145, Routine rizatriptan 2021-11 Yes [id number] 5mg Take 1 [facility] 5 mg 0-25 9105 tablet by ity of disintegrat 00:00: mouth [place] tablet 00 needed for Med ical Migraine Branch (take 1 on onset of migraine and can repeat in 2 hrs). May repeat in 2 hours if needed rizatriptan 2021-11 Yes [id number] 5mg Take 1 [facility] 5 mg 0-25 9105 tablet by ity of disintegrat 00:00: mouth as [place] tablet 00 needed for Med ical Migraine Branch (take 1 on onset of migraine and can repeat in 2 hrs). May repeat in 2 hours if needed rizatriptan 2021-11 Yes [id number] 5mg Take 1 [facility] 5 mg 0-25 9105 tablet by ity of disintegrat 00:00: mouth as [place] tablet 00 needed for Med ical Migraine Branch (take 1 on onset of migraine and can repeat in 2 hrs). May repeat in 2 hours if needed rizatriptan 2021-11 Yes [id number] 5mg Take 1 [facility] 5 mg 0-25 9105 tablet by ity of disintegrat 00:00: mouth as [place] tablet 00 needed for Med ical Migraine Branch (take 1 on onset of migraine and can repeat in 2 hrs). May repeat in 2 hours if needed rizatriptan 2021-11 Yes [id number] 5mg Take 1 [facility] 5 mg 0-25 9105 tablet by ity of disintegrat 00:00: mouth as [place] tablet 00 needed for Med ical Migraine Branch (take 1 on onset of migraine and can repeat in 2 hrs). May repeat in 2 hours if needed rizatriptan 2021-11 Yes [id number] 5mg Take 1 [facility] 5 mg 0-25 9105 tablet by [facility] disintegrat 00:00: mouth [place] ing tablet 00 needed for Med ical Migraine Branch (take 1 on onset of migraine and can repeat in 2 hrs). May repeat in 2 hours if needed rizatriptan 2021-11 Yes [id number] 5mg Take 1 [facility] 5 mg 0-25 9105 tablet by [facility] disintegrat 00:00: mouth [place] ing tablet 00 needed for Med ical Migraine Branch (take 1 on onset of migraine and can repeat in 2 hrs). May repeat in 2 hours if needed rizatriptan 2021-11 Yes [id number] 5mg Take 1 [facility] 5 mg 0-25 9105 tablet by [facility] disintegrat 00:00: mouth [place] ing tablet 00 needed for Med ical Migraine Branch (take 1 on onset of migraine and can repeat in 2 hrs). May repeat in 2 hours if needed rizatriptan 2021-11 Yes [id number] 5mg Take 1 [facility] 5 mg 0-25 9105 tablet by [facility] of disintegrat 00:00: mouth [place] ing tablet 00 needed for Med ical Migraine Branch (take 1 on onset of migraine and can repeat in 2 hrs). May repeat in 2 hours if needed rizatriptan 2021-11 Yes [id number] 5mg Take 1 [facility] 5 mg 0-25 9105 tablet by [facility] of disintegrat 00:00: mouth [place] ing tablet 00 needed for Med ical Migraine Branch (take 1 on onset of migraine and can repeat in 2 hrs). May repeat in 2 hours if needed rizatriptan 2021-11 Yes [id number] 5mg Take 1 [facility] 5 mg 0-25 9105 tablet by [facility] disintegrat 00:00: mouth [place] ing tablet 00 needed for Med ical Migraine Branch (take 1 on onset of migraine and can repeat in 2 hrs). May repeat in 2 hours if needed rizatriptan 2021-11 Yes [id number] 5mg Take 1 [facility] 5 mg 0-25 9105 tablet by [facility] of disintegrat 00:00: mouth [place] ing tablet 00 needed for Med ical Migraine Branch (take 1 on onset of migraine and can repeat in 2 hrs). May repeat in 2 hours if needed rizatriptan 2021-11 Yes [id number] 5mg Take 1 [facility] 5 mg 0-25 9105 tablet by [facility] of disintegrat 00:00: mouth [place] ing tablet 00 needed for Med ical Migraine Branch (take 1 on onset of migraine and can repeat in 2 hrs). May repeat in 2 hours if needed rizatriptan 2021-11 Yes [id number] 5mg Take 1 [facility] 5 mg 0-25 9105 tablet by [facility] of disintegrat 00:00: mouth [place] ing tablet 00 needed for Med ical Migraine Branch (take 1 on onset of migraine and can repeat in 2 hrs). May repeat in 2 hours if needed rizatriptan 2021-11 Yes [id number] 5mg Take 1 [facility] 5 mg 0-25 9105 tablet by [facility] of disintegrat 00:00: mouth [place] ing tablet 00 needed for Med ical Migraine Branch (take 1 on onset of migraine and can repeat in 2 hrs). May repeat in 2 hours if needed rizatriptan 2021-11 Yes [id number] 5mg Take 1 [facility] 5 mg 0-25 9105 tablet by [facility] of disintegrat 00:00: mouth [place] ing tablet 00 needed for Med ical Migraine Branch (take 1 on onset of migraine and can repeat in 2 hrs). May repeat in 2 hours if needed rizatriptan 2021-11 Yes [id number] 5mg Take 1 [facility] 5 mg 0-25 9105 tablet by [facility] of disintegrat 00:00: mouth [place] ing tablet 00 needed for Med ical Migraine Branch (take 1 on onset of migraine and can repeat in 2 hrs). May repeat in 2 hours if needed rizatriptan 2021-11 Yes [id number] 5mg Take 1 [facility] 5 mg 0-25 9105 tablet by [facility] of disintegrat 00:00: mouth [place] ing tablet 00 needed for Med ical Migraine Branch (take 1 on onset of migraine and can repeat in 2 hrs). May repeat in 2 hours if needed rizatriptan 2021-11 Yes [id number] 5mg Take 1 [facility] 5 mg 0-25 9105 tablet by [facility] of disintegrat 00:00: mouth [place] ing tablet 00 needed for Med ical Migraine Branch (take 1 on onset of migraine and can repeat in 2 hrs). May repeat in 2 hours if needed rizatriptan 2021-11 Yes [id number] 5mg Take 1 [facility] 5 mg 0-25 9105 tablet by [facility] of disintegrat 00:00: mouth [place] ing tablet 00 needed for Med ical Migraine Branch (take 1 on onset of migraine and can repeat in 2 hrs). May repeat in 2 hours if needed rizatriptan 2021-11 Yes [id number] 5mg Take 1 [facility] 5 mg 0-25 9105 tablet by [facility] of disintegrat 00:00: mouth [place] ing tablet 00 needed for Med ical Migraine Branch (take 1 on onset of migraine and can repeat in 2 hrs). May repeat in 2 hours if needed rizatriptan 2021-11 Yes [id number] 5mg Take 1 [facility] 5 mg 0-25 9105 tablet by [facility] of disintegrat 00:00: mouth [place] ing tablet 00 needed for Med ical Migraine Branch (take 1 on onset of migraine and can repeat in 2 hrs). May repeat in 2 hours if needed rizatriptan 2021-11 Yes [id number] 5mg Take 1 [facility] 5 mg 0-25 9105 tablet by [facility] of disintegrat 00:00: mouth [place] ing tablet 00 needed for Med ical Migraine Branch (take 1 on onset of migraine and can repeat in 2 hrs). May repeat in 2 hours if needed rizatriptan 2021-11 Yes [id number] 5mg Take 1 [facility] 5 mg 0-25 9105 tablet by [facility] of disintegrat 00:00: mouth [place] ing tablet 00 needed for Med ical Migraine Branch (take 1 on onset of migraine and can repeat in 2 hrs). May repeat in 2 hours if needed rizatriptan 2021-11 Yes [id number] 5mg Take 1 [facility] 5 mg 0-25 9105 tablet by [facility] of disintegrat 00:00: mouth [place] ing tablet 00 needed for Med ical Migraine Branch (take 1 on onset of migraine and can repeat in 2 hrs). May repeat in 2 hours if needed rizatriptan 2021-11 Yes [id number] 5mg Take 1 [facility] 5 mg 0-25 9105 tablet by [facility] of disintegrat 00:00: mouth [place] ing tablet 00 needed for Med ical Migraine Branch (take 1 on onset of migraine and can repeat in 2 hrs). May repeat in 2 hours if needed rizatriptan 2021-11 Yes [id number] 5mg Take 1 [facility] 5 mg 0-25 9105 tablet by [facility] of disintegrat 00:00: mouth [place] ing tablet 00 needed for Med ical Migraine Branch (take 1 on onset of migraine and can repeat in 2 hrs). 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 NITROGLYCER 2021-[id number] 1 [facility] IN 0.4 mg 0-24 TABLET ity of sublingual 00:00: UNDER THE [place] tablet 00 TONGUE Medical EVERY 5 Branch MINUTES NEEDED FOR CHEST PAIN. NITROGLYCER 2021-[id number] 1 [facility] IN 0.4 mg 0-24 TABLET ity of sublingual 00:00: UNDER THE [place] tablet 00 TONGUE Medical EVERY 5 Branch MINUTES NEEDED FOR CHEST PAIN. NITROGLYCER 2021-[id number] 1 [facility] IN 0.4 mg 0-24 TABLET ity of sublingual 00:00: UNDER THE [place] tablet 00 TONGUE Medical EVERY 5 Branch MINUTES NEEDED FOR CHEST PAIN. NITROGLYCER 2021-[id number] 1 [facility] IN 0.4 mg 0-24 TABLET ity of sublingual 00:00: UNDER THE [place] tablet 00 TONGUE Medical EVERY 5 Branch MINUTES NEEDED FOR CHEST PAIN. NITROGLYCER 2021-[id number] 1 [facility] IN 0.4 mg 0-24 TABLET ity of sublingual 00:00: UNDER THE [place] tablet 00 TONGUE Medical EVERY 5 Branch MINUTES NEEDED FOR CHEST PAIN. NITROGLYCER 2021-[id number] 1 [facility] IN 0.4 mg 0-24 TABLET ity of sublingual 00:00: UNDER THE [place] tablet 00 TONGUE Medical EVERY 5 Branch MINUTES NEEDED FOR CHEST PAIN. NITROGLYCER 2021-[id number] 1 [facility] IN 0.4 mg 0-24 TABLET ity of sublingual 00:00: UNDER THE [place] tablet 00 TONGUE Medical EVERY 5 Branch MINUTES NEEDED FOR CHEST PAIN. NITROGLYCER 2021-[id number] 1 [facility] IN 0.4 mg 0-24 TABLET ity of sublingual 00:00: UNDER THE [place] tablet 00 TONGUE Medical EVERY 5 Branch MINUTES NEEDED FOR CHEST PAIN. NITROGLYCER 2021-[id number] 1 [facility] IN 0.4 mg 0-24 TABLET ity of sublingual 00:00: UNDER THE [place] tablet 00 TONGUE Medical EVERY 5 Branch MINUTES NEEDED FOR CHEST PAIN. NITROGLYCER 2021-[id number] 1 [facility] IN 0.4 mg 0-24 TABLET ity of sublingual 00:00: UNDER THE [place] tablet 00 TONGUE Medical EVERY 5 Branch MINUTES NEEDED FOR CHEST PAIN. NITROGLYCER 2021-[id number] 1 [facility] IN 0.4 mg 0-24 TABLET ity of sublingual 00:00: UNDER THE [place] tablet 00 TONGUE Medical EVERY 5 Branch MINUTES NEEDED FOR CHEST PAIN. NITROGLYCER 2021-[id number] 1 [facility] IN 0.4 mg 0-24 TABLET ity of sublingual 00:00: UNDER THE [place] tablet 00 TONGUE Medical EVERY 5 Branch MINUTES NEEDED FOR CHEST PAIN. NITROGLYCER 2021-[id number] 1 [facility] IN 0.4 mg 0-24 TABLET ity of sublingual 00:00: UNDER THE [place] tablet 00 TONGUE Medical EVERY 5 Branch MINUTES NEEDED FOR CHEST PAIN. NITROGLYCER 2021-[id number] 1 [facility] IN 0.4 mg 0-24 TABLET ity of sublingual 00:00: UNDER THE [place] tablet 00 TONGUE Medical EVERY 5 Branch MINUTES NEEDED FOR CHEST PAIN. NITROGLYCER 2021-[id number] 1 [facility] IN 0.4 mg 0-24 TABLET ity of sublingual 00:00: UNDER THE [place] tablet 00 TONGUE Medical EVERY 5 Branch MINUTES NEEDED FOR CHEST PAIN. NITROGLYCER 2021-[id number] 1 [facility] IN 0.4 mg 0-24 TABLET ity of sublingual 00:00: UNDER THE [place] tablet 00 TONGUE Medical EVERY 5 Branch MINUTES NEEDED FOR CHEST PAIN. NITROGLYCER 2021-[id number] 1 [facility] IN 0.4 mg 0-24 TABLET ity of sublingual 00:00: UNDER THE [place] tablet 00 TONGUE Medical EVERY 5 Branch MINUTES NEEDED FOR CHEST PAIN. NITROGLYCER 2021-[id number] 1 [facility] IN 0.4 mg 0-24 TABLET ity of sublingual 00:00: UNDER THE [place] tablet 00 TONGUE Medical EVERY 5 Branch MINUTES NEEDED FOR CHEST PAIN. NITROGLYCER 2021-[id number] 1 [facility] IN 0.4 mg 0-24 TABLET ity of sublingual 00:00: UNDER THE [place] tablet 00 TONGUE Medical EVERY 5 Branch MINUTES NEEDED FOR CHEST PAIN. NITROGLYCER 2021-[id number] 1 [facility] IN 0.4 mg 0-24 TABLET ity of sublingual 00:00: UNDER THE [place] tablet 00 TONGUE Medical EVERY 5 Branch MINUTES NEEDED FOR CHEST PAIN. NITROGLYCER 2021-[id number] 1 [facility] IN 0.4 mg 0-24 TABLET ity of sublingual 00:00: UNDER THE [place] tablet 00 TONGUE Medical EVERY 5 Branch MINUTES NEEDED FOR CHEST PAIN. NITROGLYCER 2021-[id number] 1 [facility] IN 0.4 mg 0-24 TABLET ity of sublingual 00:00: UNDER THE [place] tablet 00 TONGUE Medical EVERY 5 Branch MINUTES NEEDED FOR CHEST PAIN. NITROGLYCER 2021-[id number] 1 [facility] IN 0.4 mg 0-24 TABLET ity of sublingual 00:00: UNDER THE [place] tablet 00 TONGUE Medical EVERY 5 Branch MINUTES NEEDED FOR CHEST PAIN. NITROGLYCER 2021-[id number] 1 [facility] IN 0.4 mg 0-24 TABLET ity of sublingual 00:00: UNDER THE [place] tablet 00 TONGUE Medical EVERY 5 Branch MINUTES NEEDED FOR CHEST PAIN. NITROGLYCER 2021-[id number] 1 [facility] IN 0.4 mg 0-24 TABLET ity of sublingual 00:00: UNDER THE [place] tablet 00 TONGUE Medical EVERY 5 Branch MINUTES NEEDED FOR CHEST PAIN. NITROGLYCER 2021-[id number] 1 [facility] IN 0.4 mg 0-24 TABLET ity of sublingual 00:00: UNDER THE [place] tablet 00 TONGUE Medical EVERY 5 Branch MINUTES NEEDED FOR CHEST PAIN. NITROGLYCER 2021-[id number] 1 [facility] IN 0.4 mg 0-24 TABLET ity of sublingual 00:00: UNDER THE [place] tablet 00 TONGUE Medical EVERY 5 Branch MINUTES NEEDED FOR CHEST PAIN. NITROGLYCER 2021-[id number] 1 [facility] IN 0.4 mg 0-24 TABLET ity of sublingual 00:00: UNDER THE [place] tablet 00 TONGUE Medical EVERY 5 Branch MINUTES NEEDED FOR CHEST PAIN. mesalamine 2021-11 Yes TAKE 4 Unive rs (APRISO) 0-24 CAPSULES ity of 0.375 gram 00:00: BY MOUTH [place] 24 hr 00 DAILY MD capsule [facility] mesalamine 2021-11 Yes TAKE 4 Unive rs (APRISO) 0-24 CAPSULES ity of 0.375 gram 00:00: BY MOUTH [place] 24 hr 00 DAILY MD capsule [facility] GABAPENTIN 2021-11 Yes [id number] TAKE 1 [facility] 600 mg 0-21 TABLET BY ity of tablet 00:00: MOUTH [place] 00 THREE Medical TIMES Branch DAILY GABAPENTIN 2021-11 Yes [id number] TAKE 1 [facility] 600 mg 0-21 TABLET BY ity of tablet 00:00: MOUTH [place] 00 THREE Medical TIMES Branch DAILY GABAPENTIN 2021-11 Yes [id number] TAKE 1 [facility] 600 mg 0-21 TABLET BY ity of tablet 00:00: MOUTH [place] 00 THREE Medical TIMES Branch DAILY GABAPENTIN 2021-11 Yes [id number] TAKE 1 [facility] 600 mg 0-21 TABLET BY ity of tablet 00:00: MOUTH [place] 00 THREE Medical TIMES Branch DAILY GABAPENTIN 2021- Yes [id number] TAKE 1 [facility] 600 mg 0-21 TABLET BY ity of tablet 00:00: MOUTH [place] 00 THREE Medical TIMES Branch DAILY GABAPENTIN 2021- Yes [id number] TAKE 1 [facility] 600 mg 0-21 TABLET BY ity of tablet 00:00: MOUTH [place] 00 THREE Medical TIMES Branch DAILY GABAPENTIN 2021- Yes [id number] TAKE 1 [facility] 600 mg 0-21 TABLET BY ity of tablet 00:00: MOUTH [place] 00 THREE Medical TIMES Branch DAILY GABAPENTIN 2021- Yes [id number] TAKE 1 [facility] 600 mg 0-21 TABLET BY ity of tablet 00:00: MOUTH [place] 00 THREE Medical TIMES Branch DAILY GABAPENTIN 2021- Yes [id number] TAKE 1 [facility] 600 mg 0-21 TABLET BY ity of tablet 00:00: MOUTH [place] 00 THREE Medical TIMES Branch DAILY GABAPENTIN 2021- Yes [id number] TAKE 1 [facility] 600 mg 0-21 TABLET BY ity of tablet 00:00: MOUTH [place] 00 THREE Medical TIMES Branch DAILY GABAPENTIN 2021- Yes [id number] TAKE 1 [facility] 600 mg 0-21 TABLET BY ity of tablet 00:00: MOUTH [place] 00 THREE Medical TIMES Branch DAILY GABAPENTIN 2021-2021- No [id number] TAKE 1 [facility] 600 mg 0-21 11-17 TABLET BY ity of tablet 00:00: 00:00 MOUTH [place] 00 :00 THREE Medical TIMES Branch DAILY sucralfate 2021-11- No TAKE 1 Univ ers (CARAFATE) 0-20 02-14 TABLET BY ity of 1 g tablet 00:00: 00:00 MOUTH [place] 00 :00 TWICE MD DAILY [facility] sucralfate 2021-11- No TAKE 1 Univ ers (CARAFATE) 0-20 02-14 TABLET BY ity of 1 g tablet 00:00: 00:00 MOUTH [place] 00 :00 TWICE MD DAILY [facility] HYDROcodone 2021-11 Yes [id number] 1{tbl} Take 1 [...] 1{tbl} Take 1 U nivers -acetaminop 0-06 09-21 tablet by it y of hen 7.5-325 00:00: 00:00 [place] mg per 00 :00 every 6 Medical tablet (six) Branch hours as needed for Pain. Indication s: chronic pain HYDRALAZINE 2021-11 Yes [id number] TAKE 1 [facility] 100 mg 0-05 TABLET BY ity of tablet 00:00: THREE Medical TIMES Branch DAILY HYDRALAZINE 2021-11 Yes [id number] TAKE 1 [facility] 100 mg 0-05 TABLET BY ity of tablet 00:00: THREE Medical TIMES Branch DAILY HYDRALAZINE 2021-11 Yes [id number] TAKE 1 [facility] 100 mg 0-05 TABLET BY ity of tablet 00:00: THREE Medical TIMES Branch DAILY HYDRALAZINE 2021-11 Yes [id number] TAKE 1 [facility] 100 mg 0-05 TABLET BY ity of tablet 00:00: THREE Medical TIMES Branch DAILY HYDRALAZINE 2021-11 Yes [id number] TAKE 1 [facility] 100 mg 0-05 TABLET BY ity of tablet 00:00: THREE Medical TIMES Branch DAILY HYDRALAZINE 2021-11 Yes [id number] TAKE 1 [facility] 100 mg 0-05 TABLET BY ity of tablet 00:00: THREE Medical TIMES Branch DAILY HYDRALAZINE 2021-11 Yes [id number] TAKE 1 [facility] 100 mg 0-05 TABLET BY ity of tablet 00:00: THREE Medical TIMES Branch DAILY HYDRALAZINE 2021-11 Yes [id number] TAKE 1 [facility] 100 mg 0-05 TABLET BY ity of tablet 00:00: THREE Medical TIMES Branch DAILY HYDRALAZINE 2021-11 Yes [id number] TAKE 1 [facility] 100 mg 0-05 TABLET BY ity of tablet 00:00: MOUTH THREE Medical TIMES Branch DAILY HYDRALAZINE 2021-11 Yes [id number] TAKE 1 [facility] 100 mg 0-05 TABLET BY ity of tablet 00:00: THREE Medical TIMES Branch DAILY HYDRALAZINE 2021-11 Yes [id number] TAKE 1 [facility] 100 mg 0-05 TABLET BY ity of tablet 00:00: THREE Medical TIMES Branch DAILY HYDRALAZINE 2021-11- [id number] TAKE 1 [facility] 100 mg 0-05 11-03 TABLET BY ity of tablet 00:00: 00:00 MOUTH [place] 00 :00 THREE Medical TIMES Branch DAILY NITROGLYCER 2021-0 [...] x 5/16 Syrg Branch GABAPENTIN 2021-0 Yes [id number] TAKE 1 [facility] 600 mg 9-26 TABLET [...] x 5/16 Syrg Branch GABAPENTIN 2021-0 Yes [id number] TAKE 1 [facility] 600 mg 9-26 TABLET [...] x 5/16 Syrg Branch GABAPENTIN 2021-0 Yes [id number] TAKE 1 [facility] 600 mg 9-26 TABLET [...] x 5/16 Syrg Branch GABAPENTIN 2-0 Yes [id number] TAKE 1 [facility] 600 mg 9-26 TABLET [...] 00:00: in the morning. Medical Branch INSULIN 2-0 Yes USE TWICE Unive rs SYRINGE-NEE 9-26 DAILY WITH it y of DLE U-100 1 00:00: MEALS [place] mL 31 gauge 00 Medical x 5/16 Syrg Branch amLODIPine 2-0 Yes 5mg Take 5 mg Un ally 5 mg tablet 9-26 by mouth ity of 00:00: in the morning. Medical Branch INSULIN 2-0 Yes USE TWICE Unive rs SYRINGE-NEE 9-26 DAILY WITH it y of DLE U-100 1 00:00: MEALS [place] mL 31 gauge 00 Medical x 5/16 Syrg Branch amLODIPine 2022-0 Yes 5mg Take 5 mg Un ally 5 mg tablet 9-26 by mouth ity of 00:00: in the [place] morning. Medical Branch INSULIN 2022-0 Yes USE TWICE Unive rs SYRINGE-NEE 9-26 DAILY WITH it y of DLE U-100 1 00:00: MEALS [place] mL 31 gauge 00 Medical x 5/16 Syrg Branch amLODIPine 2022-0 Yes 5mg Take 5 mg Un ally 5 mg tablet 9-26 by mouth ity of 00:00: in the [place] morning. Medical Branch INSULIN 2022-0 Yes USE TWICE Unive rs SYRINGE-NEE 9-26 DAILY WITH it y of DLE U-100 1 00:00: MEALS [place] mL 31 gauge 00 Medical x 5/16 Syrg Branch amLODIPine 2022-0 Yes 5mg Take 5 mg Un ally 5 mg tablet 9-26 by mouth ity of 00:00: in the [place] morning. Medical Branch INSULIN 2022-0 Yes USE TWICE Unive rs SYRINGE-NEE 9-26 DAILY WITH it y of DLE U-100 1 00:00: MEALS [facility] 31 gauge 00 Medical x 5/16 Syrg Branch amLODIPine 2022-0 Yes 5mg Take 5 mg Un ally 5 mg tablet 9-26 by mouth ity of 00:00: in the [place] morning. Medical Branch INSULIN 2022-0 Yes USE TWICE Unive rs SYRINGE-NEE 9-26 DAILY WITH it y of DLE U-100 1 00:00: MEALS [place] mL 31 gauge 00 Medical x 5/16 Syrg Branch amLODIPine 2022-0 Yes 5mg Take 5 mg Un ally 5 mg tablet 9-26 by mouth ity of 00:00: in the [place] morning. Medical Branch INSULIN 2022-0 Yes USE TWICE Unive rs SYRINGE-NEE 9-26 DAILY WITH it y of DLE U-100 1 00:00: MEALS [place] mL 31 gauge 00 Medical x 5/16 Syrg Branch amLODIPine 2022-0 Yes 5mg Take 5 mg Un ally 5 mg tablet 9-26 by mouth ity of 00:00: in the [place] morning. Medical Branch INSULIN 2022-0 Yes USE TWICE Unive rs SYRINGE-NEE 9-26 DAILY WITH it y of DLE U-100 1 00:00: MEALS [place] mL 31 gauge 00 Medical x 5/16 Syrg Branch amLODIPine 2022-0 Yes 5mg Take 5 mg Un ally 5 mg tablet 9-26 by mouth ity of 00:00: in the [place] morning. Medical Branch INSULIN 2022-0 Yes USE TWICE Unive rs SYRINGE-NEE 9-26 DAILY WITH it y of DLE U-100 1 00:00: MEALS [place] mL 31 gauge 00 Medical x 5/16 Syrg Branch amLODIPine 2022-0 Yes 5mg Take 5 mg Un ally 5 mg tablet 9-26 by mouth ity of 00:00: in the [place] morning. Medical Branch INSULIN 2022-0 Yes USE TWICE Unive rs SYRINGE-NEE 9-26 DAILY WITH it y of DLE U-100 1 00:00: MEALS [place] mL 31 gauge 00 Medical x 5/16 Syrg Branch amLODIPine 2-0 Yes 5mg Take 5 mg Un ally 5 mg tablet 9-26 by mouth ity of 00:00: in the [place] morning. Medical Branch INSULIN 2022-0 Yes USE TWICE Unive rs SYRINGE-NEE 9-26 DAILY WITH it y of DLE U-100 1 00:00: MEALS [place] mL 31 gauge 00 Medical x 5/16 Syrg Branch amLODIPine 2-0 Yes 5mg Take 5 mg Un ally 5 mg tablet 9-26 by mouth ity of 00:00: in the [place] morning. Medical Branch INSULIN 2-0 Yes USE TWICE Unive rs SYRINGE-NEE 9-26 DAILY WITH it y of DLE U-100 1 00:00: MEALS [place] mL 31 gauge 00 Medical x 5/16 Syrg Branch amLODIPine 2-0 Yes 5mg Take 5 mg Un ally 5 mg tablet 9-26 by mouth ity of 00:00: in the [place] morning. Medical Branch INSULIN 2022-0 Yes USE TWICE Unive rs SYRINGE-NEE 9-26 DAILY WITH it y of DLE U-100 1 00:00: MEALS [place] mL 31 gauge 00 Medical x 5/16 Syrg Branch amLODIPine 2022-0 Yes 5mg Take 5 mg Un ally 5 mg tablet 9-26 by mouth ity of 00:00: in the [place] morning. Medical Branch INSULIN 2022-0 Yes USE TWICE Unive rs SYRINGE-NEE 9-26 DAILY WITH it y of DLE U-100 1 00:00: MEALS [place] mL 31 gauge 00 Medical x 5/16 Syrg Branch amLODIPine 2022-0 Yes 5mg Take 5 mg Un ally 5 mg tablet -26 by mouth ity of 00:00: in the [place] 00 morning. Medical Branch INSULIN 0 Yes USE TWICE Unive rs SYRINGE-NEE - DAILY WITH it y of DLE U-100 1 00:00: MEALS [place] mL 31 gauge 00 Medical x 03/16 Syrg Branch amLODIPine 0 Yes 5mg Take 5 mg Un ally 5 mg tablet - by mouth ity of 00:00: in the [place] morning. Medical Branch NITROGLYCER 0 202- No PLACE 1 Un ally IN 0.4 mg 9-26 10-24 TABLET ity of sublingual 00:00: 00:00 UNDER THE [place] tablet 00 :00 TONGUE Medical EVERY 5 Branch MINUTES NEEDED FOR CHEST PAIN. GABAPENTIN 2021- No [id number] TAKE 1 [facility] 600 mg 9-26 10-21 TABLET BY ity of tablet 00:00: 00:00 MOUTH [place] 00 :00 THREE Medical TIMES Branch DAILY Motegrity 2 0 Yes TAKE 1 Univ ers mg tab 9-25 TABLET BY ity of 00:00: MOUTH [place] 00 DAILY MD [facility] Motegrity 2 0 Yes TAKE 1 Univ ers mg tab 9-25 TABLET BY ity of 00:00: [facility] DAILY MD [facility] COLCHICINE 2021-0 Yes [id number] .6mg TAKE 1 U nivers 0.6 mg 9-19 TABLET BY ity of tablet 00:00: [facility] DAILY Medical Branch COLCHICINE 2021-0 Yes [id number] .6mg TAKE 1 U nivers 0.6 mg 9-19 TABLET BY ity of tablet 00:00: MOUTH [place] DAILY Medical Branch COLCHICINE 2021-0 Yes [id number] .6mg TAKE 1 U nivers 0.6 mg 9-19 TABLET BY ity of tablet 00:00: [facility] DAILY Medical Branch COLCHICINE 2021-0 Yes [id number] .6mg TAKE 1 U nivers 0.6 mg 9-19 TABLET BY ity of tablet 00:00: [facility] DAILY Medical Branch COLCHICINE 2021-0 Yes [id number] .6mg TAKE 1 U nivers 0.6 mg 9-19 TABLET BY ity of tablet 00:00: MOUTH DAILY Medical Branch COLCHICINE 2022-0 Yes [id number] .6mg TAKE 1 U nivers 0.6 mg 9-19 TABLET BY ity of tablet 00:00: MOUTH DAILY Medical Branch COLCHICINE 2022-0 Yes [id number] .6mg TAKE 1 U nivers 0.6 mg 9-19 TABLET BY ity of tablet 00:00: MOUTH DAILY Medical Branch COLCHICINE 2022-0 Yes [id number] .6mg TAKE 1 U nivers 0.6 mg 9-19 TABLET BY ity of tablet 00:00: MOUTH DAILY Medical Branch COLCHICINE 2022-0 Yes [id number] .6mg TAKE 1 U nivers 0.6 mg 9-19 TABLET BY ity of tablet 00:00: [facility] DAILY Medical Branch COLCHICINE 2022-0 Yes [id number] .6mg TAKE 1 U nivers 0.6 mg 9-19 TABLET BY ity of tablet 00:00: [facility] DAILY Medical Branch COLCHICINE 2022-0 Yes [id number] .6mg TAKE 1 U nivers 0.6 mg 9-19 TABLET BY ity of tablet 00:00: MOUTH DAILY Medical Branch COLCHICINE 2022-0 Yes [id number] .6mg TAKE 1 U nivers 0.6 mg 9-19 TABLET BY ity of tablet 00:00: [facility] DAILY Medical Branch COLCHICINE 2022-0 Yes [id number] .6mg TAKE 1 U nivers 0.6 mg 9-19 TABLET BY ity of tablet 00:00: [facility] DAILY Medical Branch COLCHICINE 2022-0 Yes [id number] .6mg TAKE 1 U nivers 0.6 mg 9-19 TABLET BY ity of tablet 00:00: MOUTH DAILY Medical Branch COLCHICINE 2022-0 Yes [id number] .6mg TAKE 1 U nivers 0.6 mg 9-19 TABLET BY ity of tablet 00:00: [facility] DAILY Medical Branch COLCHICINE 2022-0 Yes [id number] .6mg TAKE 1 U nivers 0.6 mg 9-19 TABLET BY ity of tablet 00:00: MOUTH [place] DAILY Medical Branch COLCHICINE 2022-0 Yes [id number] .6mg TAKE 1 U nivers 0.6 mg 9-19 TABLET BY ity of tablet 00:00: MOUTH [place] DAILY Medical Branch COLCHICINE 2022-0 Yes [id number] .6mg TAKE 1 U nivers 0.6 mg 9-19 TABLET BY ity of tablet 00:00: MOUTH [place] DAILY Medical Branch COLCHICINE 2022-0 Yes [id number] .6mg TAKE 1 U nivers 0.6 mg 9-19 TABLET BY ity of tablet 00:00: [facility] DAILY Medical Branch COLCHICINE 2022-0 Yes [id number] .6mg TAKE 1 U nivers 0.6 mg 9-19 TABLET BY ity of tablet 00:00: MOUTH [place] DAILY Medical Branch COLCHICINE 2022-0 Yes [id number] .6mg TAKE 1 U nivers 0.6 mg 9-19 TABLET BY ity of tablet 00:00: [facility] DAILY Medical Branch COLCHICINE 2022-0 Yes [id number] .6mg TAKE 1 U nivers 0.6 mg 9-19 TABLET BY ity of tablet 00:00: [facility] DAILY Medical Branch COLCHICINE 2022-0 Yes [id number] .6mg TAKE 1 U nivers 0.6 mg 9-19 TABLET BY ity of tablet 00:00: [facility] DAILY Medical Branch COLCHICINE 2022-0 Yes [id number] .6mg TAKE 1 U nivers 0.6 mg 9-19 TABLET BY ity of tablet 00:00: [facility] DAILY Medical Branch COLCHICINE 2022-0 Yes [id number] .6mg TAKE 1 U nivers 0.6 mg 9-19 TABLET BY ity of tablet 00:00: [facility] DAILY Medical Branch COLCHICINE 2022-0 Yes [id number] .6mg TAKE 1 U nivers 0.6 mg 9-19 TABLET BY ity of tablet 00:00: [facility] DAILY Medical Branch COLCHICINE 2022-0 Yes [id number] .6mg TAKE 1 U nivers 0.6 mg 9-19 TABLET BY ity of tablet 00:00: [facility] DAILY Medical Branch COLCHICINE 2022-0 Yes [id number] .6mg TAKE 1 U nivers 0.6 mg 9-19 TABLET BY ity of tablet 00:00: [facility] DAILY Medical Branch COLCHICINE 2022-0 Yes [id number] .6mg TAKE 1 U nivers 0.6 mg 9-19 TABLET BY ity of tablet 00:00: [facility] DAILY Medical Branch COLCHICINE 2022-0 Yes [id number] .6mg TAKE 1 U nivers 0.6 mg 9-19 TABLET BY ity of tablet 00:00: MOUTH [place] 00 DAILY Medical Branch COLCHICINE 2-0 Yes [id number] .6mg TAKE 1 U nivers 0.6 mg 9-19 TABLET BY ity of tablet 00:00: MOUTH [place] 00 DAILY Medical Branch COLCHICINE 2-0 2023- No [id number] .6mg TAKE 1 Univers 0.6 mg 9-19 01-18 TABLET BY ity of tablet 00:00: 00:00 [...] [id number] 1{tbl} Take 1 U nivers -acetaminop 07-09 tablet by it y of hen 7.5-325 00:00: [place] per 00 :00 every 6 Medical tablet (six) Branch hours as needed for Pain. Indication s: chronic pain albuterol Yes albuterol Alpine anahi (PROVENTIL) 07-08 sulfate [facility] ge (2.5 mg/3 12:00: 2.5 mg/3 of mL) 0.083% 32 mL (0.083 Medi patsy nebulizer %) e solution solution for nebulizati on metoprolol Yes 100mg Take 100 [facility] (TOPROL-XL) 07-08 mg by [place] 100 MG XL 12:00: mouth. of tablet 32 Medicin e albuterol Yes albuterol Alpine anahi 108 (90 07-08 sulfate [facility] base) 12:00: HFA 90 of mcg/act 32 mcg/actuat Medici n inhaler ion e aerosol inhaler Mesalamine Yes mesalamine [facility] 0.375 g 07-08 ER 0.375 [place] CP24 12:00: gram of 32 capsule,ex Medicin [...] Yes cyclobenza [facility] rine 07-08 wiley 10 [place] (FLEXERIL) 12:00: mg tablet of 10 MG 32 TAKE 1 Medicin tablet TABLET BY e MOUTH EVERY NIGHT AT BEDTIME NEEDED FOR MUSCLE SPASM OR EAR PAIN clonidine Yes clonidine Alpine anahi (CATAPRESS) 07-08 HCl 0.2 mg Co llege 0.2 MG 12:00: tablet of tablet 32 TAKE 1 Medicin TABLET BY e MOUTH THREE TIMES DAILY atorvastati Yes atorvastat [facility] n (LIPITOR) 07-08 in 20 [...] 100 [facility] (ZYLOPRIM) 07-08 mg by [place] 100 MG 12:00: mouth. of tablet 32 Medicin e Fluticasone Yes Trelegy Alpine anahi -Umeclidin- 07-08 Ellipta Colle ge Vilant 12:00: 100 of (TRELEGY 32 mcg-62.5 Medicin ELLIPTA) mcg-25 mcg e 100-62.5-25 powder for MCG/INH inhalation AEPB INHALE 1 PUFF BY MOUTH EVERY DAY albuterol Yes albuterol Alpine anahi (PROVENTIL) 07-08 sulfate [facility] ge (2.5 mg/3 12:00: 2.5 mg/3 of mL) 0.083% 32 mL (0.083 Medi patsy nebulizer %) e solution solution for nebulizati on metoprolol Yes 100mg Take 100 [facility] (TOPROL-XL) 07-08 mg by [place] 100 MG XL 12:00: mouth. of tablet 32 Medicin e albuterol Yes albuterol Alpine anahi 108 (90 07-08 sulfate [place] base) 12:00: HFA 90 of mcg/act 32 mcg/actuat Medici n inhaler ion e aerosol inhaler Mesalamine Yes mesalamine [facility] 0.375 g 07-08 ER 0.375 [place] CP24 12:00: gram of 32 capsule,ex Medicin tended e release 24 hr hydrochloro Yes 25mg Take 25 mg [facility] thiazide 07-08 by mouth. Colleg e (HYDRODIURI 12:00: of L) 25 MG 32 Medicin tablet e diclofenac Yes diclofenac [facility] (VOLTAREN) 07-08 sodium 75 An ege 75 MG EC 12:00: mg of tablet 32 tablet,del Medicin ayed e release TAKE 1 TABLET BY MOUTH TWICE DAILY WITH MEALS cyclobenzap Yes cyclobenza [facility] rine 07-08 wiley 10 [facility] (FLEXERIL) 12:00: mg tablet of 10 MG 32 TAKE 1 Medicin tablet TABLET BY e MOUTH EVERY NIGHT AT BEDTIME NEEDED FOR MUSCLE SPASM OR EAR PAIN clonidine Yes clonidine Alpine anahi (CATAPRESS) 07-08 HCl 0.2 mg Co llege 0.2 MG 12:00: tablet of tablet 32 TAKE 1 Medicin TABLET BY e MOUTH THREE TIMES DAILY atorvastati Yes atorvastat [facility] n (LIPITOR) 07-08 in 20 [...] 100 [facility] (ZYLOPRIM) 07-08 mg by [place] 100 MG 12:00: mouth. of tablet 32 Medicin e Fluticasone Yes Trelegy Alpine anahi -Umeclidin- 07-08 Ellipta [facility] 12:00: 100 of (TRELEGY 32 mcg-62.5 Medicin ELLIPTA) mcg-25 mcg e 100-62.5-25 powder for MCG/INH inhalation AEPB INHALE 1 PUFF BY MOUTH EVERY DAY albuterol Yes albuterol Alpine anahi (PROVENTIL) 07-08 sulfate Colle ge (2.5 mg/3 12:00: 2.5 mg/3 of mL) 0.083% 32 mL (0.083 Medi patsy nebulizer %) e solution solution for nebulizati on metoprolol Yes 100mg Take 100 [facility] (TOPROL-XL) 07-08 mg by [place] 100 MG XL 12:00: mouth. of tablet 32 Medicin e albuterol Yes albuterol Alpine anahi 108 (90 07-08 sulfate [employer] [facility]) 12:00: HFA 90 of mcg/act 32 mcg/actuat Medici n inhaler ion e aerosol inhaler Mesalamine Yes mesalamine [facility] 0.375 g 07-08 ER 0.375 [place] CP24 12:00: gram of 32 capsule,ex Medicin [...] TWICE DAILY WITH MEALS cyclobenzap Yes cyclobenza [facility] rine 07-08 wiley 10 [place] (FLEXERIL) 12:00: mg tablet of 10 MG 32 TAKE 1 Medicin tablet TABLET BY e MOUTH EVERY NIGHT AT BEDTIME NEEDED FOR MUSCLE SPASM OR EAR PAIN clonidine Yes clonidine Alpine anahi (CATAPRESS) 07-08 HCl 0.2 mg Co [facility]lege 0.2 MG 12:00: tablet of tablet 32 TAKE 1 Medicin TABLET BY e MOUTH THREE TIMES DAILY atorvastati Yes atorvastat [facility] n (LIPITOR) 07-08 in 20 mg An ege 20 MG 12:00: tablet of tablet 32 TAKE 1 Medicin TABLET BY e MOUTH EVERY DAY amlodipine Yes 10mg Take 10 mg [facility] (NORVASC) 07-08 by mouth. [facility] ge 10 MG 12:00: of tablet 32 Medicin e alprazolam Yes 2mg Take 2 mg [facility] (XANAX) 07-08 by mouth. College 0.25 MG 12:00: of tablet 32 Medicin e allopurinol Yes 100mg Take 100 [facility] (ZYLOPRIM) 07-08 mg by [place] 100 MG 12:00: mouth. of tablet 32 Medicin e Fluticasone 2022-0 Yes Trelegy Alpine anahi -Umeclidin- 9-07 Ellipta [facility] 12:00: 100 of (TRELEGY 32 mcg-62.5 Medicin ELLIPTA) mcg-25 mcg e 100-62.5-25 powder for MCG/INH inhalation AEPB INHALE 1 PUFF BY MOUTH EVERY DAY HYDRALAZINE 2021-0 Yes [id number] TAKE 1 [facility] 100 mg 9-06 TABLET BY ity of tablet 00:00: [facility] 00 THREE Medical TIMES Branch DAILY HYDRALAZINE 2021-0 Yes [id number] TAKE 1 Univers 100 mg 9-06 TABLET BY ity of tablet 00:00: MOUTH [place] 00 THREE Medical TIMES Branch DAILY HYDRALAZINE 2021-0 Yes [id number] TAKE 1 Univers 100 mg 9-06 TABLET BY ity of tablet 00:00: [facility] THREE Medical TIMES Branch DAILY HYDRALAZINE 2021-0 Yes [id number] TAKE 1 Univers 100 mg 9-06 TABLET BY ity of tablet 00:00: [facility] THREE Medical TIMES Branch DAILY HYDRALAZINE 2021-0 Yes [id number] TAKE 1 Univers 100 mg 9-06 TABLET BY ity of tablet 00:00: [facility] THREE Medical TIMES Branch DAILY HYDRALAZINE 2021-0 Yes [id number] TAKE 1 Univers 100 mg 9-06 TABLET BY ity of tablet 00:00: [facility] THREE Medical TIMES Branch DAILY HYDRALAZINE 2021-0 2- No [id number] TAKE 1 Univers 100 mg 9-06 10-05 TABLET BY ity of tablet 00:00: 00:00 [facility] 00 :00 THREE Medical TIMES Branch DAILY GABAPENTIN 2-0 Yes [id number] TAKE 1 Univers 600 mg 8-31 TABLET BY ity of tablet 00:00: [facility] 00 THREE Medical TIMES Branch DAILY GABAPENTIN 2-0 Yes [id number] TAKE 1 Univers 600 mg 8-31 TABLET BY ity of tablet 00:00: [facility] 00 THREE Medical TIMES Branch DAILY GABAPENTIN 2-0 Yes [id number] TAKE 1 Univers 600 mg 8-31 TABLET BY ity of tablet 00:00: [facility] 00 THREE Medical TIMES Branch DAILY GABAPENTIN 2-0 Yes [id number] TAKE 1 Univers 600 mg 8-31 TABLET BY ity of tablet 00:00: [facility] THREE Medical TIMES Branch DAILY GABAPENTIN 2-0 2022- No [id number] TAKE 1 Univers 600 mg 8-- TABLET BY ity of tablet 00:00: 00:00 MOUTH [place] 00 :00 THREE Medical TIMES Branch DAILY metoprolol 0 Yes [id number] TAKE 1 [facility] (LOPRESSOR) 8-22 TABLET BY Col lege 100 MG 00:00: MOUTH of tablet 00 TWICE Medicin DAILY e metoprolol 0 Yes [id number] TAKE 1 [facility] (LOPRESSOR) 8-22 TABLET BY Col lege 100 MG 00:00: MOUTH of tablet 00 TWICE Medicin DAILY e metoprolol 0 Yes [id number] TAKE 1 [facility] (LOPRESSOR) 8-22 TABLET BY [...] TWICE Medical DAILY Branch BD PEN Yes [id number] USE [facility] NEEDLE DEVORAH 8-17 DIRECTED An ege 2ND GEN 32G 00:00: EVERY DAY o f X 4 MM MISC 00 Medicin e alprazolam Yes [id number] TAKE 1 [facility] (XANAX) 2 8-17 TABLET BY Colle ge MG tablet 00:00: MOUTH of 00 THREE Medicin TIMES e DAILY NEEDED FOR ANXIETY BD PEN 0 Yes [id number] USE [facility] NEEDLE DEVORAH 8-17 DIRECTED Na ege 2ND GEN 32G 00:00: EVERY DAY o f X 4 MM MISC 00 Medicin e alprazolam Yes [id number] TAKE 1 [facility] (XANAX) 2 8-17 TABLET BY Colle ge MG tablet 00:00: MOUTH of 00 THREE Medicin TIMES e DAILY NEEDED FOR ANXIETY BD PEN Yes [id number] USE [facility] NEEDLE DEVORAH 8-17 DIRECTED An ege 2ND GEN 32G 00:00: EVERY DAY o f X 4 MM MISC 00 Medicin e alprazolam Yes [id number] TAKE 1 [facility] (XANAX) 2 8-17 TABLET BY Colle ge MG tablet 00:00: MOUTH of 00 THREE Medicin TIMES e DAILY NEEDED FOR ANXIETY albuterol Yes albuterol Alpine anahi (PROVENTIL) 8-16 sulfate Colle ge (2.5 [...] 100 [facility] (TOPROL-XL) 8-16 mg by [place] 100 MG XL 08:03: mouth. of tablet 35 Medicin e pantoprazol Yes 20mg Take 20 mg [facility] e 8-16 by mouth [place] (PROTONIX) 08:00: daily. of 20 MG 33 [...] [facility] or -acetaminop 8-09 TABLET BY Col lege hen (Appifier) 00:00: MOUTH of 7.5-325 MG 00 EVERY 6 Medici n per tablet HOURS e NEEDED FOR PAIN OR CHRONIC PAIN lisinopril Yes TAKE 1/2 Alpine anahi (PRINIVIL, 8-08 TABLET BY An ege ZESTRIL) 40 00:00: MOUTH of MG tablet 00 TWICE Medicin DAILY e hydrALAZINE Yes TAKE 1 [facility] (APRESOLINE 8-08 TABLET BY Col lege ) 100 MG 00:00: MOUTH of tablet 00 THREE Medicin TIMES e DAILY lisinopril Yes TAKE 1/2 Alpine anahi (PRINIVIL, 8-08 TABLET BY An ege ZESTRIL) 40 00:00: MOUTH of MG tablet 00 TWICE Medicin DAILY e hydrALAZINE 0 Yes TAKE 1 [facility] (APRESOLINE 8-08 TABLET BY Col lege ) 100 MG 00:00: MOUTH of tablet 00 THREE Medicin TIMES e DAILY lisinopril 0 Yes TAKE 1/2 Alpine anahi (PRINIVIL, 8-08 TABLET BY An ege ZESTRIL) 40 00:00: MOUTH of MG tablet 00 TWICE Medicin DAILY e hydrALAZINE 0 Yes TAKE 1 [facility] (APRESOLINE 8-08 TABLET BY Col lege ) 100 MG 00:00: MOUTH of tablet 00 THREE Medicin TIMES e DAILY lisinopril 0 Yes TAKE 1/2 Alpine anahi (PRINIVIL, 8-08 TABLET BY An ege ZESTRIL) 40 00:00: MOUTH of MG tablet 00 TWICE Medicin DAILY e LISINOPRIL 2021-0 Yes [id number] TAKE 1/2 Univers 40 mg 8-08 TABLET BY ity of tablet 00:00: MOUTH [place] 00 TWICE Medical DAILY Branch HYDROcodone 0 Yes [id number] 1{tbl} Take 1 [...] Indication s: chronic pain LISINOPRIL 2022-0 Yes [id number] TAKE 1/2 Univers 40 mg 8-08 TABLET BY ity of tablet 00:00: MOUTH [place] 00 TWICE Medical DAILY Branch HYDROcodone 2-0 Yes [id number] 1{tbl} Take 1 Un ally -acetaminop 8-08 tablet by ity of hen 7.5-325 00:00: mouth [place] mg per 00 every 6 Medical tablet (six) Branch hours as needed for Pain. Indication s: chronic pain LISINOPRIL 2-0 Yes [id number] TAKE 1/2 [facility] 40 mg 8-08 TABLET BY ity of tablet 00:00: MOUTH [place] 00 TWICE Medical DAILY Branch HYDROcodone 2-0 Yes [id number] 1{tbl} Take 1 Un ally -acetaminop 8-08 tablet by ity of hen 7.5-325 00:00: mouth [place] mg per 00 every 6 Medical tablet (six) Branch hours as needed for Pain. Indication s: chronic pain LISINOPRIL 2022-0 Yes [id number] TAKE 1/2 Univers 40 mg 8-08 TABLET BY ity of tablet 00:00: MOUTH [place] 00 TWICE Medical DAILY Branch LISINOPRIL 2022-0 Yes [id number] TAKE 1/2 Univers 40 mg 8-08 TABLET BY ity of tablet 00:00: MOUTH [place] 00 TWICE Medical DAILY Branch LISINOPRIL 2022-0 Yes [id number] TAKE 1/2 Univers 40 mg 8-08 TABLET BY ity of tablet 00:00: MOUTH [place] 00 TWICE Medical DAILY Branch LISINOPRIL 2022-0 Yes [id number] TAKE 1/2 Univers 40 mg 8-08 TABLET BY ity of tablet 00:00: MOUTH [place] 00 TWICE Medical DAILY Branch LISINOPRIL 2022-0 Yes [id number] TAKE 1/2 Univers 40 mg 8-08 TABLET BY ity of tablet 00:00: MOUTH TWICE Medical DAILY Branch LISINOPRIL 2022-0 Yes [id number] TAKE 1/2 Univers 40 mg 8-08 TABLET BY ity of tablet 00:00: MOUTH TWICE Medical DAILY Branch LISINOPRIL 2022-0 Yes [id number] TAKE 1/2 Univers 40 mg 8-08 TABLET BY ity of tablet 00:00: MOUTH TWICE Medical DAILY Branch LISINOPRIL 2022-0 Yes [id number] TAKE 1/2 Univers 40 mg 8-08 TABLET BY ity of tablet 00:00: MOUTH TWICE Medical DAILY Branch LISINOPRIL 2022-0 Yes [id number] TAKE 1/2 [facility] 40 mg 8-08 TABLET BY ity of tablet 00:00: MOUTH TWICE Medical DAILY Branch LISINOPRIL 2-0 Yes [id number] TAKE 1/2 [facility] 40 mg 8-08 TABLET BY ity of tablet 00:00: MOUTH TWICE Medical DAILY Branch LISINOPRIL 2-0 Yes [id number] TAKE 1/2 [facility] 40 mg 8-08 TABLET BY ity of tablet 00:00: MOUTH TWICE Medical DAILY Branch LISINOPRIL 2022-0 Yes [id number] TAKE 1/2 [facility] 40 mg 8-08 TABLET BY ity of tablet 00:00: MOUTH TWICE Medical DAILY Branch LISINOPRIL 2-0 Yes [id number] TAKE 1/2 [facility] 40 mg 8-08 TABLET BY ity of tablet 00:00: MOUTH TWICE Medical DAILY Branch LISINOPRIL 2-0 Yes [id number] TAKE 1/2 [facility] 40 mg 8-08 TABLET BY ity of tablet 00:00: MOUTH TWICE Medical DAILY Branch LISINOPRIL 2022-0 Yes [id number] TAKE 1/2 [facility] 40 mg 8-08 TABLET BY ity of tablet 00:00: MOUTH TWICE Medical DAILY Branch LISINOPRIL 2022-0 Yes [id number] TAKE 1/2 [facility] 40 mg 8-08 TABLET BY ity of tablet 00:00: MOUTH TWICE Medical DAILY Branch LISINOPRIL 2022-0 Yes [id number] TAKE 1/2 Univers 40 mg 8-08 TABLET BY ity of tablet 00:00: MOUTH TWICE Medical DAILY Branch LISINOPRIL 2022-0 2- No [id number] TAKE 1/2 [facility] 40 mg 06-08 TABLET [...] EVENING HUMULIN Yes ADMINISTER [facility] 70/30 - 70 UNITS College (70-30) 100 00:00: UNDER THE o f UNIT/ML 00 SKIN EVERY Medici n injection MORNING e THEN ADMINISTER 60 UNITS UNDER THE SKIN EVERY EVENING HUMULIN Yes ADMINISTER [facility] 70/30 - 70 UNITS College (70-30) 100 00:00: UNDER [...] THREE Medicin TIMES e DAILY HUMULIN Yes [id number] ADMINISTER [facility] 70/30 U-100 06-03 70 UNITS ity of INSULIN 100 00:00: UNDER THE [place] unit/mL 00 SKIN EVERY Medica l (70-30) MORNING Branch suspension THEN ADMINISTER 60 UNITS UNDER THE SKIN EVERY EVENING HUMULIN 2021-0 Yes [id number] ADMINISTER [facility] 70/30 U-100 8-03 70 UNITS ity of INSULIN 100 00:00: UNDER THE [place] unit/mL 00 SKIN EVERY Medica l (70-30) MORNING Branch suspension THEN ADMINISTER 60 UNITS UNDER THE SKIN EVERY EVENING GABAPENTIN 2021-0 Yes [id number] TAKE 1 Univers 600 mg 8-03 TABLET BY ity of tablet 00:00: MOUTH [place] THREE Medical TIMES Branch DAILY HUMULIN Yes [id number] ADMINISTER [facility] 70/30 U-100 8-03 70 UNITS ity of INSULIN 100 00:00: UNDER THE [place] unit/mL 00 SKIN EVERY Medica l (70-30) MORNING Branch suspension THEN ADMINISTER 60 UNITS UNDER THE SKIN EVERY EVENING GABAPENTIN 0 Yes [id number] TAKE 1 Univers 600 mg 8-03 TABLET BY ity of tablet 00:00: MOUTH Medical TIMES Branch DAILY HUMULIN Yes [id number] ADMINISTER [facility] 70/30 U-100 8-03 70 UNITS ity of INSULIN 100 00:00: UNDER THE [place] unit/mL 00 SKIN EVERY Medica l (70-30) MORNING Branch suspension THEN ADMINISTER 60 UNITS UNDER THE SKIN EVERY EVENING GABAPENTIN 2021-0 Yes [id number] TAKE 1 [facility] 600 mg 8-03 TABLET BY ity of tablet 00:00: MOUTH Medical TIMES Branch DAILY HUMULIN Yes [id number] ADMINISTER [facility] 70/30 U-100 8-03 70 UNITS ity of INSULIN 100 00:00: UNDER THE [place] unit/mL 00 SKIN EVERY Medica l (70-30) MORNING Branch suspension THEN ADMINISTER 60 UNITS UNDER THE SKIN EVERY EVENING GABAPENTIN 0 Yes [id number] TAKE 1 Univers 600 mg 8-03 TABLET BY ity of tablet 00:00: MOUTH THREE Medical TIMES Branch DAILY HUMULIN Yes [id number] ADMINISTER [facility] 70/30 U-100 8-03 70 UNITS ity of INSULIN 100 00:00: UNDER THE [place] unit/mL 00 SKIN EVERY Medica l (70-30) MORNING Branch suspension THEN ADMINISTER 60 UNITS UNDER THE SKIN EVERY EVENING HUMULIN 0 Yes [id number] ADMINISTER Univers 70/30 U-100 8-03 70 UNITS ity of INSULIN 100 00:00: UNDER THE [place] unit/mL 00 SKIN EVERY Medica l (70-30) MORNING Branch suspension THEN ADMINISTER 60 UNITS UNDER THE SKIN EVERY EVENING HUMULIN Yes [id number] ADMINISTER [facility] 70/30 U-100 8-03 70 UNITS ity of INSULIN 100 00:00: UNDER THE [place] unit/mL 00 SKIN EVERY Medica l (70-30) MORNING Branch suspension THEN ADMINISTER 60 UNITS UNDER THE SKIN EVERY EVENING HUMULIN Yes [id number] ADMINISTER Univers 70/30 U-100 8-03 70 UNITS ity of INSULIN 100 00:00: UNDER THE [place] unit/mL 00 SKIN EVERY Medica l (70-30) MORNING Branch suspension THEN ADMINISTER 60 UNITS UNDER THE SKIN EVERY EVENING HUMULIN Yes [id number] ADMINISTER Univers 70/30 U-100 8-03 70 UNITS ity of INSULIN 100 00:00: UNDER THE [place] unit/mL 00 SKIN EVERY Medica l (70-30) MORNING Branch suspension THEN ADMINISTER 60 UNITS UNDER THE SKIN EVERY EVENING HUMULIN Yes [id number] ADMINISTER Univers 70/30 U-100 8-03 70 UNITS ity of INSULIN 100 00:00: UNDER THE [place] unit/mL 00 SKIN EVERY Medica l (70-30) MORNING Branch suspension THEN ADMINISTER 60 UNITS UNDER THE SKIN EVERY EVENING HUMULIN Yes [id number] ADMINISTER Univers 70/30 U-100 8-03 70 UNITS ity of INSULIN 100 00:00: UNDER THE [place] unit/mL 00 SKIN EVERY Medica l (70-30) MORNING Branch suspension THEN ADMINISTER 60 UNITS UNDER THE SKIN EVERY EVENING HUMULIN Yes [id number] ADMINISTER Univers 70/30 U-100 8-03 70 UNITS ity of INSULIN 100 00:00: UNDER THE [place] unit/mL 00 SKIN EVERY Medica l (70-30) MORNING Branch suspension THEN ADMINISTER 60 UNITS UNDER THE SKIN EVERY EVENING HUMULIN Yes [id number] ADMINISTER Univers 70/30 U-100 8-03 70 UNITS ity of INSULIN 100 00:00: UNDER THE [place] unit/mL 00 SKIN EVERY Medica l (70-30) MORNING Branch suspension THEN ADMINISTER 60 UNITS UNDER THE SKIN EVERY EVENING HUMULIN Yes [id number] ADMINISTER Univers 70/30 U-100 8-03 70 UNITS ity of INSULIN 100 00:00: UNDER THE [place] unit/mL 00 SKIN EVERY Medica l (70-30) MORNING Branch suspension THEN ADMINISTER 60 UNITS UNDER THE SKIN EVERY EVENING HUMULIN Yes [id number] ADMINISTER [facility] 70/30 U-100 8-03 70 UNITS ity of INSULIN 100 00:00: UNDER THE [place] unit/mL 00 SKIN EVERY Medica l (70-30) MORNING Branch suspension THEN ADMINISTER 60 UNITS UNDER THE SKIN EVERY EVENING HUMULIN Yes [id number] ADMINISTER Univers 70/30 U-100 8-03 70 UNITS ity of INSULIN 100 00:00: UNDER THE [place] unit/mL 00 SKIN EVERY Medica l (70-30) MORNING Branch suspension THEN ADMINISTER 60 UNITS UNDER THE SKIN EVERY EVENING HUMULIN Yes [id number] ADMINISTER [facility] 70/30 U-100 8- 70 UNITS ity of INSULIN 100 00:00: UNDER THE [place] unit/mL 00 SKIN EVERY Medica l (70-30) MORNING Branch suspension THEN ADMINISTER 60 UNITS UNDER THE SKIN EVERY EVENING HUMULIN Yes [id number] ADMINISTER [facility] 70/30 U-100 8- 70 UNITS ity of INSULIN 100 00:00: UNDER THE [place] unit/mL 00 SKIN EVERY Medica l (70-30) MORNING Branch suspension THEN ADMINISTER 60 UNITS UNDER THE SKIN EVERY EVENING HUMULIN Yes [id number] ADMINISTER [facility] 70/30 U-100 8- 70 UNITS ity of INSULIN 100 00:00: UNDER THE [place] unit/mL 00 SKIN EVERY Medica l (70-30) MORNING Branch suspension THEN ADMINISTER 60 UNITS UNDER THE SKIN EVERY EVENING HUMULIN Yes [id number] ADMINISTER [facility] 70/30 U-100 8-03 70 UNITS ity of INSULIN 100 00:00: UNDER THE [place] unit/mL 00 SKIN EVERY Medica l (70-30) MORNING Branch suspension THEN ADMINISTER 60 UNITS UNDER THE SKIN EVERY EVENING HUMULIN Yes [id number] ADMINISTER [facility] 70/30 U-100 8-03 70 UNITS ity of INSULIN 100 00:00: UNDER THE [place] unit/mL 00 SKIN EVERY Medica l (70-30) MORNING Branch suspension THEN ADMINISTER 60 UNITS UNDER THE SKIN EVERY EVENING HUMULIN Yes [id number] ADMINISTER [facility] 70/30 U-100 8-03 70 UNITS ity of INSULIN 100 00:00: UNDER THE [place] unit/mL 00 SKIN EVERY Medica l (70-30) MORNING Branch suspension THEN ADMINISTER 60 UNITS UNDER THE SKIN EVERY EVENING HUMULIN Yes [id number] ADMINISTER [facility] 70/30 U-100 8-03 70 UNITS ity of INSULIN 100 00:00: UNDER THE [place] unit/mL 00 SKIN EVERY Medica l (70-30) MORNING Branch suspension THEN ADMINISTER 60 UNITS UNDER THE SKIN EVERY EVENING HUMULIN Yes [id number] ADMINISTER [facility] 70/30 U-100 8-03 70 UNITS ity of INSULIN 100 00:00: UNDER THE [place] unit/mL 00 SKIN EVERY Medica l (70-30) MORNING Branch suspension THEN ADMINISTER 60 UNITS UNDER THE SKIN EVERY EVENING HUMULIN Yes [id number] ADMINISTER [facility] 70/30 U-100 8- 70 UNITS ity of INSULIN 100 00:00: UNDER THE [place] unit/mL 00 SKIN EVERY Medica l (70-30) MORNING Branch suspension THEN ADMINISTER 60 UNITS UNDER THE SKIN EVERY EVENING HUMULIN Yes [id number] ADMINISTER [facility] 70/30 U-100 8-03 70 UNITS ity of INSULIN 100 00:00: UNDER THE [place] unit/mL 00 SKIN EVERY Medica l (70-30) MORNING Branch suspension THEN ADMINISTER 60 UNITS UNDER THE SKIN EVERY EVENING HUMULIN Yes [id number] ADMINISTER [facility] 70/30 U-100 8-03 70 UNITS ity of INSULIN 100 00:00: UNDER THE [place] unit/mL 00 SKIN EVERY Medica l (70-30) MORNING Branch suspension THEN ADMINISTER 60 UNITS UNDER THE SKIN EVERY EVENING HUMULIN Yes [id number] ADMINISTER [facility] 70/30 U-100 8-03 70 UNITS ity of INSULIN 100 00:00: UNDER THE [place] unit/mL 00 SKIN EVERY Medica l (70-30) MORNING Branch suspension THEN ADMINISTER 60 UNITS UNDER THE SKIN EVERY EVENING HUMULIN Yes [id number] ADMINISTER [facility] 70/30 U-100 8-03 70 UNITS ity of INSULIN 100 00:00: UNDER THE [place] unit/mL 00 SKIN EVERY Medica l (70-30) MORNING Branch suspension THEN ADMINISTER 60 UNITS UNDER THE SKIN EVERY EVENING HUMULIN Yes [id number] ADMINISTER [facility] 70/30 U-100 8-03 70 UNITS ity of INSULIN 100 00:00: UNDER THE [place] unit/mL 00 SKIN EVERY Medica l (70-30) MORNING Branch suspension THEN ADMINISTER 60 UNITS UNDER THE SKIN EVERY EVENING HUMULIN Yes [id number] ADMINISTER [facility] 70/30 U-100 8-03 70 UNITS ity of INSULIN 100 00:00: UNDER THE [place] unit/mL 00 SKIN EVERY Medica l (70-30) MORNING Branch suspension THEN ADMINISTER 60 UNITS UNDER THE SKIN EVERY EVENING HUMULIN Yes [id number] ADMINISTER [facility] 70/30 U-100 8- 70 UNITS ity of INSULIN 100 00:00: UNDER THE [place] unit/mL 00 SKIN EVERY Medica l (70-30) MORNING Branch suspension THEN ADMINISTER 60 UNITS UNDER THE SKIN EVERY EVENING HUMULIN Yes [id number] ADMINISTER [facility] 70/30 U-100 8- 70 UNITS ity of INSULIN 100 00:00: UNDER THE [place] unit/mL 00 SKIN EVERY Medica l (70-30) MORNING Branch suspension THEN ADMINISTER 60 UNITS UNDER THE SKIN EVERY EVENING HUMULIN Yes [id number] ADMINISTER [facility] 70/30 U-100 8- 70 UNITS ity of INSULIN 100 00:00: UNDER THE [place] unit/mL 00 SKIN EVERY Medica l (70-30) MORNING Branch suspension THEN ADMINISTER 60 UNITS UNDER THE SKIN EVERY EVENING HUMULIN Yes [id number] ADMINISTER [facility] 70/30 U-100 8- 70 UNITS ity of INSULIN 100 00:00: UNDER THE [place] unit/mL 00 SKIN EVERY Medica l (70-30) MORNING Branch suspension THEN ADMINISTER 60 UNITS UNDER THE SKIN EVERY EVENING HUMULIN Yes [id number] ADMINISTER [facility] 70/30 U-100 8- 70 UNITS ity of INSULIN 100 00:00: UNDER THE [place] unit/mL 00 SKIN EVERY Medica l (70-30) MORNING Branch suspension THEN ADMINISTER 60 UNITS UNDER THE SKIN EVERY EVENING HUMULIN Yes [id number] ADMINISTER [facility] 70/30 U-100 8-03 70 UNITS ity of INSULIN 100 00:00: UNDER THE [place] unit/mL 00 SKIN EVERY Medica l (70-30) MORNING Branch suspension THEN ADMINISTER 60 UNITS UNDER THE SKIN EVERY EVENING HUMULIN Yes [id number] ADMINISTER [facility] 70/30 U-100 8- 70 UNITS ity of INSULIN 100 00:00: UNDER THE [place] unit/mL 00 SKIN EVERY Medica l (70-30) MORNING Branch suspension THEN ADMINISTER 60 UNITS UNDER THE SKIN EVERY EVENING HUMULIN Yes [id number] ADMINISTER [facility] 70/30 U-100 8-03 70 UNITS ity of INSULIN 100 00:00: UNDER THE [place] unit/mL 00 SKIN EVERY Medica l (70-30) MORNING Branch suspension THEN ADMINISTER 60 UNITS UNDER THE SKIN EVERY EVENING HUMULIN Yes [id number] ADMINISTER [facility] 70/30 U-100 8- 70 UNITS ity of INSULIN 100 00:00: UNDER THE [place] unit/mL 00 SKIN EVERY Medica l (70-30) MORNING Branch suspension THEN ADMINISTER 60 UNITS UNDER THE SKIN EVERY EVENING HUMULIN Yes [id number] ADMINISTER [facility] 70/30 U-100 8- 70 UNITS ity of INSULIN 100 00:00: UNDER THE [place] unit/mL 00 SKIN EVERY Medica l (70-30) MORNING Branch suspension THEN ADMINISTER 60 UNITS UNDER THE SKIN EVERY EVENING HUMULIN Yes [id number] ADMINISTER [facility] 70/30 U-100 8 70 UNITS ity of INSULIN 100 00:00: [place] unit/mL 00 SKIN EVERY Medica l (70-30) MORNING Branch suspension THEN ADMINISTER 60 UNITS UNDER THE SKIN EVERY EVENING HUMULIN Yes [id number] ADMINISTER [facility] 70/30 U-100 8- 70 UNITS ity of INSULIN 100 00:00: [place] unit/mL 00 SKIN EVERY Medica l (70-30) MORNING Branch suspension THEN ADMINISTER 60 UNITS UNDER THE SKIN EVERY EVENING GABAPENTIN 0 202- No [id number] TAKE 1 [facility] 600 mg 06-03 08 TABLET BY ity of tablet 00:00: 00:00 MOUTH [place] 00 :00 THREE Medical TIMES Branch DAILY HYDROCHLORO 0 Yes [id number] 12.5mg TAKE 1 [facility] THIAZIDE 7-18 CAPSULE BY ity o f 12.5 mg 00:00: MOUTH [place] capsule 00 DAILY Medical Branch HYDROCHLORO Yes [id number] 12.5mg TAKE 1 [facility] THIAZIDE 7-18 CAPSULE BY ity o f 12.5 mg 00:00: MOUTH [place] capsule 00 DAILY Medical Branch HYDROCHLORO Yes [id number] 12.5mg TAKE 1 [facility] THIAZIDE 7-18 CAPSULE BY ity o f 12.5 mg 00:00: MOUTH [place] capsule 00 DAILY Medical Branch HYDROCHLORO 2022-0 Yes [id number] 12.5mg TAKE 1 [facility] THIAZIDE 7-18 CAPSULE BY ity o f 12.5 mg 00:00: MOUTH [place] capsule 00 DAILY Medical Branch HYDROCHLORO 2022-0 Yes [id number] 12.5mg TAKE 1 [facility] THIAZIDE 7-18 CAPSULE BY ity o f 12.5 mg 00:00: MOUTH [place] capsule 00 DAILY Medical Branch HYDROCHLORO 2022-0 Yes [id number] 12.5mg TAKE 1 [facility] THIAZIDE 7-18 CAPSULE BY ity o f 12.5 mg 00:00: MOUTH [place] capsule 00 DAILY Medical Branch HYDROCHLORO 2022-0 Yes [id number] 12.5mg TAKE 1 [facility] THIAZIDE 7-18 CAPSULE BY ity o f 12.5 mg 00:00: MOUTH [place] capsule 00 DAILY Medical Branch HYDROCHLORO 2022-0 Yes [id number] 12.5mg TAKE 1 [facility] THIAZIDE 7-18 CAPSULE BY ity o f 12.5 mg 00:00: MOUTH [place] capsule 00 DAILY Medical Branch HYDROCHLORO 2022-0 Yes [id number] 12.5mg TAKE 1 [facility] THIAZIDE 7-18 CAPSULE BY ity o f 12.5 mg 00:00: MOUTH [place] capsule 00 DAILY Medical Branch HYDROCHLORO 2022-0 Yes [id number] 12.5mg TAKE 1 [facility] THIAZIDE 7-18 CAPSULE BY ity o f 12.5 mg 00:00: MOUTH [place] capsule 00 DAILY Medical Branch HYDROCHLORO 2022-0 Yes [id number] 12.5mg TAKE 1 [facility] THIAZIDE 7-18 CAPSULE BY ity o f 12.5 mg 00:00: MOUTH [place] capsule 00 DAILY Medical Branch HYDROCHLORO 2022-0 Yes [id number] 12.5mg TAKE 1 [facility] THIAZIDE 7-18 CAPSULE BY ity o f 12.5 mg 00:00: MOUTH [place] capsule 00 DAILY Medical Branch HYDROCHLORO 2022-0 Yes [id number] 12.5mg TAKE 1 [facility] THIAZIDE 7-18 CAPSULE BY ity o f 12.5 mg 00:00: MOUTH [place] capsule 00 DAILY Medical Branch HYDROCHLORO 2022-0 Yes [id number] 12.5mg TAKE 1 [facility] THIAZIDE 7-18 CAPSULE BY ity o f 12.5 mg 00:00: MOUTH [place] capsule 00 DAILY Medical Branch HYDROCHLORO 2022-0 Yes [id number] 12.5mg TAKE 1 [facility] THIAZIDE 7-18 CAPSULE BY ity o f 12.5 mg 00:00: MOUTH [place] capsule 00 DAILY Medical Branch HYDROCHLORO 2022-0 Yes [id number] 12.5mg TAKE 1 [facility] THIAZIDE 7-18 CAPSULE BY ity o f 12.5 mg 00:00: MOUTH [place] capsule 00 DAILY Medical [facility] HYDROCHLORO 2022-0 Yes [id number] 12.5mg TAKE 1 [facility] THIAZIDE 7-18 CAPSULE BY ity o f 12.5 mg 00:00: MOUTH [place] capsule 00 DAILY Medical Branch HYDROCHLORO 2022-0 Yes [id number] 12.5mg TAKE 1 [facility] THIAZIDE 7-18 CAPSULE BY ity o f 12.5 mg 00:00: MOUTH [place] capsule 00 DAILY Medical Branch HYDROCHLORO 2022-0 Yes [id number] 12.5mg TAKE 1 [facility] THIAZIDE 7-18 CAPSULE BY ity o f 12.5 mg 00:00: MOUTH [place] capsule 00 DAILY Medical Branch HYDROCHLORO 2022-0 Yes [id number] 12.5mg TAKE 1 [facility] THIAZIDE 7-18 CAPSULE BY ity o f 12.5 mg 00:00: MOUTH [place] capsule 00 DAILY Medical Branch HYDROCHLORO 2022-0 Yes [id number] 12.5mg TAKE 1 [facility] THIAZIDE 7-18 CAPSULE BY ity o f 12.5 mg 00:00: MOUTH [place] capsule 00 DAILY Medical Branch HYDROCHLORO 2022-0 Yes [id number] 12.5mg TAKE 1 [facility] THIAZIDE 7-18 CAPSULE BY ity o f 12.5 mg 00:00: MOUTH [place] capsule 00 DAILY Medical Branch HYDROCHLORO 2022-0 Yes [id number] 12.5mg TAKE 1 [facility] THIAZIDE 7-18 CAPSULE BY ity o f 12.5 mg 00:00: MOUTH [place] capsule 00 DAILY [facility] HYDROCHLORO 2022-0 Yes [id number] 12.5mg TAKE 1 [facility] THIAZIDE 7-18 CAPSULE BY ity o f 12.5 mg 00:00: MOUTH [place] capsule 00 DAILY Medical Branch HYDROCHLORO 2022-0 Yes [id number] 12.5mg TAKE 1 [facility] THIAZIDE 7-18 CAPSULE BY ity o f 12.5 mg 00:00: MOUTH [place] capsule 00 DAILY Medical Branch HYDROCHLORO 2022-0 Yes [id number] 12.5mg TAKE 1 [facility] THIAZIDE 7-18 CAPSULE BY ity o f 12.5 mg 00:00: MOUTH [place] capsule 00 DAILY Medical Branch HYDROCHLORO 2022-0 Yes [id number] 12.5mg TAKE 1 [facility] THIAZIDE 7-18 CAPSULE BY ity o f 12.5 mg 00:00: MOUTH [place] capsule 00 DAILY Medical Branch HYDROCHLORO 2022-0 Yes [id number] 12.5mg TAKE 1 [facility] THIAZIDE 7-18 CAPSULE BY ity o f 12.5 mg 00:00: MOUTH [place] capsule 00 DAILY Medical Branch HYDROCHLORO 2022-0 Yes [id number] 12.5mg TAKE 1 [facility] THIAZIDE 7-18 CAPSULE BY ity o f 12.5 mg 00:00: MOUTH [place] capsule 00 DAILY Medical Branch HYDROCHLORO 2022-0 Yes [id number] 12.5mg TAKE 1 [facility] THIAZIDE 7-18 CAPSULE BY ity o f 12.5 mg 00:00: MOUTH [place] capsule 00 DAILY Medical Branch HYDROCHLORO 2022-0 Yes [id number] 12.5mg TAKE 1 [facility] THIAZIDE 7-18 CAPSULE BY ity o f 12.5 mg 00:00: MOUTH [place] capsule 00 DAILY Medical Branch HYDROCHLORO 2022-0 Yes [id number] 12.5mg TAKE 1 [facility] THIAZIDE 7-18 CAPSULE BY ity o f 12.5 mg 00:00: MOUTH [place] capsule 00 DAILY Medical Branch HYDROCHLORO 2022-0 Yes [id number] 12.5mg TAKE 1 [facility] THIAZIDE 7-18 CAPSULE BY ity o f 12.5 mg 00:00: MOUTH [place] capsule 00 DAILY Medical Branch HYDROCHLORO 2022-0 Yes [id number] 12.5mg TAKE 1 [facility] THIAZIDE 7-18 CAPSULE BY ity o f 12.5 mg 00:00: MOUTH [place] capsule 00 DAILY Medical Branch HYDROCHLORO 2022-0 Yes [id number] 12.5mg TAKE 1 [facility] THIAZIDE 7-18 CAPSULE BY ity o f 12.5 mg 00:00: MOUTH [place] capsule 00 DAILY Medical Branch HYDROCHLORO 2022-0 Yes [id number] 12.5mg TAKE 1 [facility] THIAZIDE 7-18 CAPSULE BY ity o f 12.5 mg 00:00: MOUTH [place] capsule 00 DAILY Medical Branch HYDROCHLORO 2022-0 Yes [id number] 12.5mg TAKE 1 [facility] THIAZIDE 7-18 CAPSULE BY ity o f 12.5 mg 00:00: MOUTH [place] capsule 00 DAILY Medical Branch HYDROCHLORO 0 2023- No [id number] 12.5mg TAKE 1 [facility] THIAZIDE 7-18 11-09 CAPSULE BY ity of 12.5 mg 00:00: [...] HOURS e colchicine Yes .6mg Take 0.6 [place] anaih 0.6 MG 7-11 mg by [facility] tablet 00:00: mouth of 00 daily. Medicin e colchicine Yes .6mg Take 0.6 [place] anahi 0.6 MG 7-11 mg by [facility] tablet 00:00: mouth of 00 daily. Medicin e colchicine Yes .6mg Take 0.6 [place] anahi 0.6 MG 7-11 mg by [facility] tablet 00:00: mouth of 00 daily. Medicin e HYDROcodone 0 Yes [id number] 1{tbl} Take [...] for Pain. Indication s: chronic pain ondansetron 2021-0 Yes DISSOLVE 1 [facility] (ZOFRAN-ODT 7-06 TABLET ON Col lege ) 4 mg 00:00: THE TONGUE of disintegrat 00 EVERY 12 Medi patsy ing tablet HOURS e NEEDED pantoprazol 2021-0 Yes 40mg Take 40 mg [facility] e 7-06 by [facility] [place]) 00:00: daily. of 40 MG 00 Medicin tablet e ondansetron 2021-0 Yes DISSOLVE 1 [facility] (ZOFRAN-ODT 7-06 TABLET ON Col lege ) 4 mg 00:00: THE TONGUE of disintegrat 00 EVERY 12 Medi patsy ing tablet HOURS e NEEDED pantoprazol 2021-0 Yes 40mg Take 40 mg [facility] e 7-06 by mouth [place] (PROTONIX) 00:00: daily. of 40 MG 00 Medicin tablet e ondansetron 2021-0 Yes DISSOLVE 1 [facility] (ZOFRAN-ODT 7-06 TABLET ON Col lege ) 4 mg 00:00: THE TONGUE of disintegrat 00 EVERY 12 Medi patsy ing tablet HOURS e NEEDED pantoprazol 2022-0 Yes 40mg Take 40 mg [facility] e 7-06 by mouth [place] (PROTONIX) 00:00: daily. of 40 MG 00 Medicin tablet e ondansetron Yes DISSOLVE 1 [facility] (ZOFRAN-ODT - TABLET ON Col lege ) 4 mg 00:00: THE TONGUE of disintegrat 00 EVERY 12 Medi patsy ing tablet HOURS e NEEDED ofloxacin Yes [facility] (OCUFLOX) 6-22 [place] 0.3 % 00:00: of Solution 00 Medicin e ofloxacin Yes [facility] (OCUFLOX) 6-22 [place] 0.3 % 00:00: of Solution 00 Medicin e ofloxacin Yes [facility] (OCUFLOX) 6-22 [place] 0.3 % 00:00: of Solution 00 Medicin e zolpidem Yes TAKE 1 [facility] (AMBIEN) 10 6-20 TABLET BY Col lege MG tablet 00:00: MOUTH AT of 00 BEDTIME Medicin NEEDED FOR e INSOMNIA zolpidem Yes TAKE 1 [facility] (AMBIEN) 10 6-20 TABLET BY [...] Pain. Indication s: chronic pain HYDROcodone 0 2- No [id number] 1{tbl} Take 1 U [...] Medical times Branch daily. GABAPENTIN 2022-0 Yes [id number] TAKE 1 [facility] 600 mg 5-31 TABLET BY ity of tablet 00:00: MOUTH [place] 00 THREE Medical TIMES Branch DAILY GABAPENTIN 2022-0 Yes [id number] TAKE 1 [facility] 600 mg 5-31 TABLET BY ity of tablet 00:00: MOUTH [place] 00 THREE Medical TIMES Branch DAILY GABAPENTIN 2022-0 Yes [id number] TAKE 1 [facility] 600 mg 5-31 TABLET BY ity of tablet 00:00: MOUTH [place] 00 THREE Medical TIMES Branch DAILY GABAPENTIN 2022-0 Yes [id number] TAKE 1 [facility] 600 mg 5-31 TABLET BY ity of tablet 00:00: MOUTH [place] 00 THREE Medical TIMES Branch DAILY GABAPENTIN 2022-0 Yes [id number] TAKE 1 [facility] 600 mg 5-31 TABLET BY ity of tablet 00:00: MOUTH [place] 00 THREE Medical TIMES Branch DAILY lubiproston 2021-0 2022- No TAKE 1 Uni vers e (AMITIZA) 5-31 -14 CAPSULE BY i ty of 24 MCG 00:00: 00:00 MOUTH [place] capsule 00 :00 TWICE MD DAILY [facility] lubiproston 0 2022- No TAKE 1 Uni vers e (AMITIZA) 5-31 -14 CAPSULE BY i ty of 24 MCG 00:00: 00:00 MOUTH [place] capsule 00 :00 TWICE MD DAILY [facility] GABAPENTIN 0 2021- No [id number] TAKE 1 [facility] 600 mg 5-31 - TABLET BY ity of tablet 00:00: 00:00 MOUTH [place] 00 :00 THREE Medical TIMES Branch DAILY Insulin 2021-0 Yes [id number] Use as Uni vers Syringe-Nee 5-18 directed ity of dle U-100 1 00:00: [place] mL 31 x 00 Medical 3/8" Syrg Branch Insulin 2021-0 Yes [id number] Use as Uni vers Syringe-Nee 5-18 directed ity of dle U-100 1 00:00: [place] mL 31 x 00 Medical 3/8" Syrg Branch Insulin 2-0 Yes [id number] Use as Uni vers Syringe-Nee 5-18 directed ity of dle U-100 1 00:00: [place] mL 31 x 00 Medical 3/8" Syrg Branch Insulin 2022-0 Yes [id number] Use as Uni vers Syringe-Nee 5-18 directed ity of dle U-100 1 00:00: [place] mL 31 x 00 Medical 3/8" Syrg Branch Insulin 2022-0 Yes [id number] Use as Uni vers Syringe-Nee 5-18 directed ity of dle U-100 1 00:00: [place] mL 31 x 00 Medical 3/8" Syrg Branch Insulin 2022-0 Yes [id number] Use as Uni vers Syringe-Nee 5-18 directed ity of dle U-100 1 00:00: [place] mL 31 x 00 Medical 3/8" Syrg Branch Insulin 2022-0 Yes [id number] Use as Uni vers Syringe-Nee 5-18 directed ity of dle U-100 1 00:00: [place] mL 31 x 00 Medical 3/8" Syrg Branch Insulin 2022-0 Yes [id number] Use as Uni vers Syringe-Nee 5-18 directed ity of dle U-100 1 00:00: [place] mL 31 x 00 Medical 3/8" Syrg Branch Insulin 2022-0 Yes [id number] Use as Uni vers Syringe-Nee 5-18 directed ity of dle U-100 1 00:00: [place] mL 31 x 00 Medical 3/8" Syrg Branch Insulin 2022-0 Yes [id number] Use as Uni vers Syringe-Nee 5-18 directed ity of dle U-100 1 00:00: [place] mL 31 x 00 Medical 3/8" Syrg Branch Insulin 2022-0 Yes [id number] Use as Uni vers Syringe-Nee 5-18 directed ity of dle U-100 1 00:00: [place] mL 31 x 00 Medical 3/8" Syrg Branch Insulin 2022-0 Yes [id number] Use as Uni vers Syringe-Nee 5-18 directed ity of dle U-100 1 00:00: [place] mL 31 x 00 Medical 3/8" Syrg Branch Insulin 2022-0 Yes [id number] Use as Uni vers Syringe-Nee 5-18 directed ity of dle U-100 1 00:00: [place] mL 31 x 00 Medical 3/8" Syrg Branch Insulin 2022-0 Yes [id number] Use as Uni vers Syringe-Nee 5-18 directed ity of dle U-100 1 00:00: [place] mL 31 x 00 Medical 3/8" Syrg Branch Insulin 2022-0 Yes [id number] Use as Uni vers Syringe-Nee 5-18 directed ity of dle U-100 1 00:00: [place] mL 31 x 00 Medical 3/8" Syrg Branch Insulin 2022-0 Yes [id number] Use as Uni vers Syringe-Nee 5-18 directed ity of dle U-100 1 00:00: [place] mL 31 x 00 Medical 3/8" Syrg Branch Insulin 2022-0 Yes [id number] Use as Uni vers Syringe-Nee 5-18 directed ity of dle U-100 1 00:00: [place] mL 31 x 00 Medical 3/8" Syrg Branch Insulin 2022-0 Yes [id number] Use as Uni vers Syringe-Nee 5-18 directed ity of dle U-100 1 00:00: [place] mL 31 x 00 Medical 3/8" Syrg Branch Insulin 2022-0 Yes [id number] Use as Uni vers Syringe-Nee 5-18 directed ity of dle U-100 1 00:00: [place] mL 31 x 00 Medical 3/8" Syrg Branch Insulin 2022-0 Yes [id number] Use as Uni vers Syringe-Nee 5-18 directed ity of dle U-100 1 00:00: [place] mL 31 x 00 Medical 3/8" Syrg Branch Insulin 2022-0 Yes [id number] Use as Uni vers Syringe-Nee 5-18 directed ity of dle U-100 1 00:00: [place] mL 31 x 00 Medical 3/8" Syrg Branch Insulin 2022-0 Yes [id number] Use as Uni vers Syringe-Nee 5-18 directed ity of dle U-100 1 00:00: [place] mL 31 x 00 Medical 3/8" Syrg Branch Insulin 2022-0 Yes [id number] Use as Uni vers Syringe-Nee 5-18 directed ity of dle U-100 1 00:00: [place] mL 31 x 00 Medical 3/8" Syrg Branch Insulin 2022-0 Yes [id number] Use as Uni vers Syringe-Nee 5-18 directed ity of dle U-100 1 00:00: [place] mL 31 x 00 Medical 3/8" Syrg Branch Insulin 2022-0 Yes [id number] Use as Uni vers Syringe-Nee 5-18 directed ity of dle U-100 1 00:00: [place] mL 31 x 00 Medical 3/8" Syrg Branch Insulin 2022-0 Yes [id number] Use as Uni vers Syringe-Nee 5-18 directed ity of dle U-100 1 00:00: [place] mL 31 x 00 Medical 3/8" Syrg Branch Insulin 2022-0 Yes [id number] Use as Uni vers Syringe-Nee 5-18 directed ity of dle U-100 1 00:00: [place] mL 31 x 00 Medical 3/8" Syrg Branch Insulin 2022-0 Yes [id number] Use as Uni vers Syringe-Nee 5-18 directed ity of dle U-100 1 00:00: [place] mL 31 x 00 Medical 3/8" Syrg Branch Insulin 2022-0 Yes [id number] Use as Uni vers Syringe-Nee 5-18 directed ity of dle U-100 1 00:00: [place] mL 31 x 00 Medical 3/8" Syrg Branch Insulin 2022-0 Yes [id number] Use as Uni vers Syringe-Nee 5-18 directed ity of dle U-100 1 00:00: [place] mL 31 x 00 Medical 3/8" Syrg Branch Insulin 2022-0 Yes [id number] Use as Uni vers Syringe-Nee 5-18 directed ity of dle U-100 1 00:00: [place] mL 31 x 00 Medical 3/8" Syrg Branch Insulin 2022-0 Yes [id number] Use as Uni vers Syringe-Nee 5-18 directed ity of dle U-100 1 00:00: [place] mL 31 x 00 Medical 3/8" Syrg Branch Insulin 2022-0 Yes [id number] Use as Uni vers Syringe-Nee 5-18 directed ity of dle U-100 1 00:00: [place] mL 31 x 00 Medical 3/8" Syrg Branch Insulin 2022-0 Yes [id number] Use as Uni vers Syringe-Nee 5-18 directed ity of dle U-100 1 00:00: [place] mL 31 x 00 Medical 3/8" Syrg Branch Insulin 2022-0 Yes [id number] Use as Uni vers Syringe-Nee 5-18 directed ity of dle U-100 1 00:00: [place] mL 31 x 00 Medical 3/8" Syrg Branch Insulin 2022-0 Yes [id number] Use as Uni vers Syringe-Nee 5-18 directed ity of dle U-100 1 00:00: [place] mL 31 x 00 Medical 3/8" Syrg Branch Insulin 2022-0 Yes [id number] Use as Uni vers Syringe-Nee 5-18 directed ity of dle U-100 1 00:00: [place] mL 31 x 00 Medical 3/8" Syrg Branch Insulin 2022-0 Yes [id number] Use as Uni vers Syringe-Nee 5-18 directed ity of dle U-100 1 00:00: [place] mL 31 x 00 Medical 3/8" Syrg Branch Insulin 2022-0 Yes [id number] Use as Uni vers Syringe-Nee 5-18 directed ity of dle U-100 1 00:00: [place] mL 31 x 00 Medical 3/8" Syrg Branch Insulin 2022-0 Yes [id number] Use as Uni vers Syringe-Nee 5-18 directed ity of dle U-100 1 00:00: [place] mL 31 x 00 Medical 3/8" Syrg Branch Insulin 2022-0 Yes [id number] Use as Uni vers Syringe-Nee 5-18 directed ity of dle U-100 1 00:00: [place] mL 31 x 00 Medical 3/8" Syrg Branch Insulin 2022-0 Yes [id number] Use as Uni vers Syringe-Nee 5-18 directed ity of dle U-100 1 00:00: [place] mL 31 x 00 Medical 3/8" Syrg Branch Insulin 2022-0 Yes [id number] Use as Uni vers Syringe-Nee 5-18 directed ity of dle U-100 1 00:00: [place] mL 31 x 00 Medical 3/8" Syrg Branch Insulin 2022-0 Yes [id number] Use as Uni vers Syringe-Nee 5-18 directed ity of dle U-100 1 00:00: [place] mL 31 x 00 Medical 3/8" Syrg Branch Insulin 2022-0 Yes [id number] Use as Uni vers Syringe-Nee 5-18 directed ity of dle U-100 1 00:00: [place] mL 31 x 00 Medical 3/8" Syrg Branch Insulin 2022-0 Yes [id number] Use as Uni vers Syringe-Nee 5-18 directed ity of dle U-100 1 00:00: [place] mL 31 x 00 Medical 3/8" Syrg Branch Insulin 2022-0 Yes [id number] Use as Uni vers Syringe-Nee 5-18 directed ity of dle U-100 1 00:00: [place] mL 31 x 00 Medical 3/8" Syrg Branch Insulin 2022-0 Yes [id number] Use as Uni vers Syringe-Nee 5-18 directed ity of dle U-100 1 00:00: [place] mL 31 x 00 Medical 3/8" Syrg Branch Insulin 2022-0 Yes [id number] Use as Uni vers Syringe-Nee 5-18 directed ity of dle U-100 1 00:00: [place] mL 31 x 00 Medical 3" Syrg Branch metformin 2021-0 Yes TAKE 1 [facility] (GLUCOPHAGE 5-16 TABLET BY Col lege ) 1000 MG 00:00: MOUTH of tablet 00 TWICE Medicin DAILY WITH e MEALS metformin 2021-0 Yes TAKE 1 [facility] (GLUCOPHAGE 5-16 TABLET BY Col lege ) 1000 MG 00:00: MOUTH of tablet 00 TWICE Medicin DAILY WITH e MEALS metformin 2021-0 Yes TAKE 1 [facility] (GLUCOPHAGE 5-16 TABLET BY Col lege ) 1000 MG 00:00: MOUTH of tablet 00 TWICE Medicin DAILY WITH e MEALS metformin 2021-0 Yes TAKE 1 [facility] (GLUCOPHAGE 5-16 TABLET BY Col lege ) 1000 MG 00:00: MOUTH of tablet 00 TWICE Medicin DAILY WITH e MEALS METFORMIN 2021-0 Yes [id number] TAKE 1 U nivers 1,000 mg 5-16 TABLET BY ity of tablet 00:00: MOUTH [place] 00 TWICE Medical DAILY WITH Branch MEALS HYDRALAZINE 2021-0 Yes [id number] TAKE 1 [facility] 100 mg 5-16 TABLET BY ity of tablet 00:00: MOUTH [place] 00 THREE Medical TIMES Branch DAILY METFORMIN 2021-0 Yes [id number] TAKE 1 U nivers 1,000 mg 5-16 TABLET BY ity of tablet 00:00: MOUTH [place] 00 TWICE Medical DAILY WITH Branch MEALS HYDRALAZINE 2021-0 Yes [id number] TAKE 1 [facility] 100 mg 5-16 TABLET BY ity of tablet 00:00: MOUTH [place] 00 THREE Medical TIMES Branch DAILY METFORMIN 2021-0 Yes [id number] TAKE 1 U nivers 1,000 mg 5-16 TABLET BY ity of tablet 00:00: MOUTH [place] 00 TWICE Medical DAILY WITH Branch MEALS HYDRALAZINE 2021-0 Yes [id number] TAKE 1 [facility] 100 mg 5-16 TABLET BY ity of tablet 00:00: MOUTH [place] 00 THREE Medical TIMES Branch DAILY METFORMIN 2021-0 Yes [id number] TAKE 1 U nivers 1,000 mg 5-16 TABLET BY ity of tablet 00:00: MOUTH [place] 00 TWICE Medical DAILY WITH Branch MEALS HYDRALAZINE 2021-0 Yes [id number] TAKE 1 [facility] 100 mg 5-16 TABLET BY ity of tablet 00:00: MOUTH THREE Medical TIMES Branch DAILY METFORMIN 2022-0 Yes [id number] TAKE 1 U nivers 1,000 mg 5-16 TABLET BY ity of tablet 00:00: TWICE Medical DAILY WITH Branch MEALS HYDRALAZINE 2-0 Yes [id number] TAKE 1 [facility] 100 mg 5-16 TABLET BY ity of tablet 00:00: THREE Medical TIMES Branch DAILY METFORMIN 2-0 Yes [id number] TAKE 1 U nivers 1,000 mg 5-16 TABLET BY ity of tablet 00:00: MOUTH TWICE Medical DAILY WITH Branch MEALS HYDRALAZINE 2021-0 Yes [id number] TAKE 1 [facility] 100 mg 5-16 TABLET BY ity of tablet 00:00: THREE Medical TIMES Branch DAILY METFORMIN 2-0 Yes [id number] TAKE 1 U nivers 1,000 mg 5-16 TABLET BY ity of tablet 00:00: TWICE Medical DAILY WITH Branch MEALS HYDRALAZINE 2021-0 Yes [id number] TAKE 1 [facility] 100 mg 5-16 TABLET BY ity of tablet 00:00: THREE Medical TIMES Branch DAILY METFORMIN 2-0 Yes [id number] TAKE 1 U nivers 1,000 mg 5-16 TABLET BY ity of tablet 00:00: TWICE Medical DAILY WITH Branch MEALS HYDRALAZINE 2021-0 Yes [id number] TAKE 1 [facility] 100 mg 5-16 TABLET BY ity of tablet 00:00: THREE Medical TIMES Branch DAILY METFORMIN 2-0 Yes [id number] TAKE 1 U nivers 1,000 mg 5-16 TABLET BY ity of tablet 00:00: TWICE Medical DAILY WITH Branch MEALS HYDRALAZINE 2-0 Yes [id number] TAKE 1 [facility] 100 mg 5-16 TABLET BY ity of tablet 00:00: THREE Medical TIMES Branch DAILY METFORMIN 2-0 Yes [id number] TAKE 1 U nivers 1,000 mg 5-16 TABLET BY ity of tablet 00:00: TWICE Medical DAILY WITH Branch MEALS HYDRALAZINE 2-0 Yes [id number] TAKE 1 [facility] 100 mg 5-16 TABLET BY ity of tablet 00:00: THREE Medical TIMES Branch DAILY METFORMIN 2022-0 Yes [id number] TAKE 1 U nivers 1,000 mg 5-16 TABLET BY ity of tablet 00:00: MOUTH 00 TWICE Medical DAILY WITH Branch MEALS HYDRALAZINE 2022-0 Yes [id number] TAKE 1 [facility] 100 mg 5-16 TABLET BY ity of tablet 00:00: MOUTH [place] 00 THREE Medical TIMES Branch DAILY METFORMIN 2022-0 Yes [id number] TAKE 1 U nivers 1,000 mg 5-16 TABLET BY ity of tablet 00:00: MOUTH 00 TWICE Medical DAILY WITH Branch MEALS METFORMIN 2022-0 Yes [id number] TAKE 1 U nivers 1,000 mg 5-16 TABLET BY ity of tablet 00:00: MOUTH 00 TWICE Medical DAILY WITH Branch MEALS METFORMIN 2022-0 Yes [id number] TAKE 1 U nivers 1,000 mg 5-16 TABLET BY ity of tablet 00:00: MOUTH 00 TWICE Medical DAILY WITH Branch MEALS METFORMIN 2022-0 Yes [id number] TAKE 1 U nivers 1,000 mg 5-16 TABLET BY ity of tablet 00:00: MOUTH 00 TWICE Medical DAILY WITH Branch MEALS METFORMIN 2022-0 Yes [id number] TAKE 1 U nivers 1,000 mg 5-16 TABLET BY ity of tablet 00:00: MOUTH 00 TWICE Medical DAILY WITH Branch MEALS METFORMIN 2022-0 Yes [id number] TAKE 1 U nivers 1,000 mg 5-16 TABLET BY ity of tablet 00:00: MOUTH 00 TWICE Medical DAILY WITH Branch MEALS METFORMIN 2022-0 Yes [id number] TAKE 1 U nivers 1,000 mg 5-16 TABLET BY ity of tablet 00:00: MOUTH 00 TWICE Medical DAILY WITH Branch MEALS METFORMIN 2022-0 Yes [id number] TAKE 1 U nivers 1,000 mg 5-16 TABLET BY ity of tablet 00:00: MOUTH 00 TWICE Medical DAILY WITH Branch MEALS METFORMIN 2022-0 Yes [id number] TAKE 1 U nivers 1,000 mg 5-16 TABLET BY ity of tablet 00:00: MOUTH 00 TWICE Medical DAILY WITH Branch MEALS METFORMIN 2022-0 Yes [id number] TAKE 1 U nivers 1,000 mg 5-16 TABLET BY ity of tablet 00:00: MOUTH 00 TWICE Medical DAILY WITH Branch MEALS METFORMIN 2022-0 Yes [id number] TAKE 1 [facility] nivers 1,000 mg 5-16 TABLET BY ity of tablet 00:00: MOUTH 00 TWICE Medical DAILY WITH Branch MEALS METFORMIN 2022-0 Yes [id number] TAKE 1 [facility] nivers 1,000 mg 5-16 TABLET BY ity of tablet 00:00: MOUTH 00 TWICE Medical DAILY WITH Branch MEALS METFORMIN 2022-0 Yes [id number] TAKE 1 U nivers 1,000 mg 5-16 TABLET BY ity of tablet 00:00: MOUTH 00 TWICE Medical DAILY WITH Branch MEALS METFORMIN 2022-0 Yes [id number] TAKE 1 [facility] nivers 1,000 mg 5-16 TABLET BY ity of tablet 00:00: MOUTH 00 TWICE Medical DAILY WITH Branch MEALS METFORMIN 2022-0 Yes [id number] TAKE 1 U nivers 1,000 mg 5-16 TABLET BY ity of tablet 00:00: MOUTH 00 TWICE Medical DAILY WITH Branch MEALS METFORMIN 2022-0 Yes [id number] TAKE 1 [facility] nivers 1,000 mg 5-16 TABLET BY ity of tablet 00:00: MOUTH 00 TWICE Medical DAILY WITH Branch MEALS METFORMIN 2022-0 Yes [id number] TAKE 1 [facility] nivers 1,000 mg 5-16 TABLET BY ity of tablet 00:00: MOUTH 00 TWICE Medical DAILY WITH Branch MEALS METFORMIN 2022-0 Yes [id number] TAKE 1 [facility] 1,000 mg 5-16 TABLET BY ity of tablet 00:00: MOUTH 00 TWICE Medical DAILY WITH Branch MEALS METFORMIN 2022-0 Yes [id number] TAKE 1 [facility] 1,000 mg 5-16 TABLET BY ity of tablet 00:00: MOUTH 00 TWICE Medical DAILY WITH Branch MEALS METFORMIN 2022-0 Yes [id number] TAKE 1 [facility] 1,000 mg 5-16 TABLET BY [facility] tablet 00:00: MOUTH 00 TWICE Medical DAILY WITH Branch MEALS METFORMIN 2022-0 Yes [id number] TAKE 1 [facility] 1,000 mg 5-16 TABLET BY [facility] tablet 00:00: MOUTH 00 TWICE Medical DAILY WITH Branch MEALS METFORMIN 2022-0 Yes [id number] TAKE 1 [facility] 1,000 mg 5-16 TABLET BY [facility] tablet 00:00: MOUTH 00 TWICE Medical DAILY WITH Branch MEALS METFORMIN 2022-0 2022- No [id number] TAKE 1 [facility] 1,000 mg 5-16 11-21 TABLET BY ity o f tablet 00:00: 00:00 MOUTH [place] 00 :00 TWICE Medical DAILY WITH Branch MEALS METFORMIN 2021-0 2021- No [id number] TAKE 1 [facility] 1,000 mg 5-16 11-21 TABLET BY ity o f tablet 00:00: 00:00 MOUTH [place] 00 :00 TWICE Medical DAILY WITH Branch MEALS HYDRALAZINE 2021-0 2021- No [id number] TAKE 1 [facility] 100 mg 5-16 09-06 TABLET BY [facility] tablet 00:00: 00:00 MOUTH [place] 00 :00 THREE Medical TIMES Branch DAILY LISINOPRIL 2021-0 Yes [id number] TAKE 1/2 [facility] 40 mg 5-13 TABLET BY [facility] tablet 00:00: MOUTH 00 TWICE Medical DAILY Branch LISINOPRIL 0 Yes [id number] TAKE 1/2 [facility] 40 mg 5-13 TABLET BY [facility] tablet 00:00: MOUTH 00 TWICE Medical DAILY Branch LISINOPRIL 2021-0 Yes [id number] TAKE 1/2 [facility] 40 mg 5-13 TABLET BY [facility] of tablet 00:00: MOUTH 00 TWICE Medical DAILY Branch LISINOPRIL 2021-0 Yes [id number] TAKE 1/2 [facility] 40 mg 5-13 TABLET BY [facility] of tablet 00:00: MOUTH 00 TWICE Medical DAILY Branch LISINOPRIL 2021-0 Yes [id number] TAKE 1/2 [facility] 40 mg 5-13 TABLET BY ity of tablet 00:00: MOUTH [place] 00 TWICE Medical DAILY Branch LISINOPRIL 2021-0 Yes [id number] TAKE 1/2 [facility] 40 mg 5-13 TABLET BY ity of tablet 00:00: MOUTH [place] 00 TWICE Medical DAILY Branch LISINOPRIL 2021-0 Yes [id number] TAKE 1/2 [facility] 40 mg 5-13 TABLET BY ity of tablet 00:00: MOUTH [place] 00 TWICE Medical DAILY Branch LISINOPRIL 2021-0 2021- No [id number] TAKE 1/2 [facility] 40 mg 5-13 08-08 TABLET BY ity of tablet 00:00: 00:00 MOUTH [place] 00 :00 TWICE Medical DAILY Branch LISINOPRIL 2021-0 2021- No [id number] TAKE 1/2 [facility] 40 mg 5-13 08-08 TABLET BY ity of tablet 00:00: 00:00 MOUTH [place] 00 :00 TWICE Medical DAILY Branch HUMULIN 2021-0 Yes [id number] ADMINISTER [facility] 70/30 U-100 5-11 70 UNITS ity of INSULIN 100 00:00: [place]ER THE [place] unit/mL 00 SKIN EVERY Medica l (70-30) MORNING Branch suspension THEN ADMINISTER 60 UNITS UNDER THE SKIN EVERY EVENING HUMULIN Yes [id number] ADMINISTER [facility] 70/30 U-100 5-11 70 UNITS ity of INSULIN 100 00:00: [place] THE [place] unit/mL 00 SKIN EVERY Medica l (70-30) MORNING Branch suspension THEN ADMINISTER 60 UNITS UNDER THE SKIN EVERY EVENING HUMULIN Yes [id number] ADMINISTER [facility] 70/30 U-100 5-11 70 UNITS ity of INSULIN 100 00:00: [place] THE [place] unit/mL 00 SKIN EVERY Medica l (70-30) MORNING Branch suspension THEN ADMINISTER 60 UNITS UNDER THE SKIN EVERY EVENING HUMULIN Yes [id number] ADMINISTER [facility] 70/30 U-100 5-11 70 UNITS ity of INSULIN 100 00:00: [place] THE [place] unit/mL 00 SKIN EVERY Medica l (70-30) MORNING Branch suspension THEN ADMINISTER 60 UNITS UNDER THE SKIN EVERY EVENING HUMULIN Yes [id number] ADMINISTER [facility] 70/30 U-100 5-11 70 UNITS ity of INSULIN 100 00:00: [place] unit/mL 00 SKIN EVERY Medica l (70-30) MORNING Branch suspension THEN ADMINISTER 60 UNITS UNDER THE SKIN EVERY EVENING HUMULIN 2021- No [id number] ADMINISTER [facility] 70/30 U-100 5-11 08-03 70 [...] 2745 1{tbl} Take 1 U nivers -acetaminop 03-09 tablet by it y of hen 7.5-325 00:00: 00:00 [place] mg per 00 :00 every 6 Medical tablet (six) Branch hours as needed for Pain. Indication s: chronic pain BD Insulin 2022- No USE 1 [facility] Syringe 03-03 S[facility]ING[facility] ity o f U-500 11/02 00:00: 00:00 DIRECTED [place] mL 31 gauge 00 :00 TWICE MD x 15/64" DAILY WITH Suraj so syrg MEALS [facility] BD Insulin 2022- No USE 1 [facility] Syringe 03-03 S[facility]ING[facility] ity o f U-500 11/02 00:00: 00:00 DIRECTED [place] as mL 31 gauge 00 :00 TWICE MD x 15/64" DAILY WITH Suraj so syrg MEALS [facility] Insulin Yes USE 1 [facility] Syringe/Nee 5-02 [facility] U-500 00:00: TWICE of (BD INSULIN 00 DAILY WITH Me dicin SYRINGE MEALS. e U-500) 31G X 6MM 0.5 ML MISC Insulin Yes USE 1 [facility] Syringe/Nee 5-02 [facility] U-500 00:00: TWICE of (BD INSULIN 00 DAILY WITH Me dicin SYRINGE MEALS. e U-500) 31G X 6MM 0.5 ML MISC Insulin Yes USE 1 [facility] Syringe/Nee 5-02 [facility] [facility] U-500 00:00: TWICE of (BD INSULIN 00 DAILY WITH Me dicin SYRINGE MEALS. e U-500) 31G X 6MM 0.5 ML MISC GABAPENTIN Yes [id number] TAKE 1 [facility] 600 mg 03-02 TABLET BY ity of tablet 00:00: MOUTH [place] 00 THREE Medical TIMES Branch DAILY BD INSULIN Yes [id number] USE 1 U nivers SYRINGE 5-02 S[facility]INGE ity of U-500 11/02 00:00: TWICE [place] mL 31 gauge 00 DAILY WITH Me dical x 15/64" MEALS. Branch Syrg BD INSULIN 2022-0 Yes [id number] USE 1 U nivers SYRINGE 5-02 S[facility]INGE ity of U-500 2 00:00: TWICE [place] mL 31 gauge 00 DAILY WITH Me dical x 15/64" MEALS. Branch Syrg BD INSULIN 0 Yes [id number] USE 1 U nivers SYRINGE 5-02 SYRINGE ity of U-500 2 00:00: TWICE [place] mL 31 gauge 00 DAILY WITH Me dical x 15/64" MEALS. Branch Syrg BD INSULIN 2021-0 Yes [id number] USE 1 U nivers SYRINGE 5-02 SYRINGE ity of U-500 2 00:00: TWICE [place] mL 31 gauge 00 DAILY WITH Me dical x 15/64" MEALS. Branch Syrg BD INSULIN 2021-0 Yes [id number] USE 1 U nivers SYRINGE 5-02 SYRINGE ity of U-500 2 00:00: TWICE [place] mL 31 gauge 00 DAILY WITH Me dical x 15/64" MEALS. Branch Syrg BD INSULIN 2021-0 Yes [id number] USE 1 U nivers SYRINGE 5-02 SYRINGE ity of U-500 2 00:00: TWICE [place] mL 31 gauge 00 DAILY WITH Me dical x 15/64" MEALS. Branch Syrg BD INSULIN 0 Yes [id number] USE 1 U nivers SYRINGE 5-02 S[facility]INGE ity of U-500 2 00:00: TWICE [place] mL 31 gauge 00 DAILY WITH Me dical x 15/64" MEALS. Branch Syrg BD INSULIN 2021-0 Yes [id number] USE 1 U nivers SYRINGE 5-02 S[facility]INGE ity of U-500 2 00:00: TWICE [place] mL 31 gauge 00 DAILY WITH Me dical x 15/64" MEALS. Branch Syrg BD INSULIN 2021-0 Yes [id number] USE 1 U nivers SYRINGE 5-02 S[facility]INGE ity of U-500 2 00:00: TWICE [place] mL 31 gauge 00 DAILY WITH Me dical x 15/64" MEALS. Branch Syrg BD INSULIN 2021-0 Yes [id number] USE 1 U nivers SYRINGE 5-02 S[facility]ING[facility] ity of U-500 2 00:00: TWICE [place] mL 31 gauge 00 DAILY WITH Me dical x 15/64" MEALS. Branch Syrg BD INSULIN 2021-0 Yes [id number] USE 1 U nivers SYRINGE 5-02 S[facility]INGE ity of U-500 2 00:00: TWICE [place] mL 31 gauge 00 DAILY WITH Me dical x 15/64" MEALS. Branch Syrg BD INSULIN 0 Yes [id number] USE 1 U nivers SYRINGE 5-02 S[facility]INGE ity of U-500 2 00:00: TWICE [place] mL 31 gauge 00 DAILY WITH Me dical x 15/64" MEALS. Branch Syrg BD INSULIN 2021-0 Yes [id number] USE 1 U nivers SYRINGE 5-02 SYRINGE ity of U-500 2 00:00: TWICE [place] mL 31 gauge 00 DAILY WITH Me dical x 15/64" MEALS. Branch Syrg BD INSULIN 2021-0 Yes [id number] USE 1 U nivers SYRINGE 5-02 S[facility]INGE ity of U-500 2 00:00: TWICE [place] mL 31 gauge 00 DAILY WITH Me dical x 15/64" MEALS. Branch Syrg BD INSULIN 2021-0 Yes [id number] USE 1 U nivers SYRINGE 5-02 SYRINGE ity of U-500 11/02 00:00: TWICE [place] mL 31 gauge 00 DAILY WITH Me dical x 15/64" MEALS. Branch Syrg BD INSULIN 0 Yes [id number] USE 1 U nivers SYRINGE 5-02 S[facility]INGE ity of U-500 2 00:00: TWICE [place] mL 31 gauge 00 DAILY WITH Me dical x 15/64" MEALS. Branch Syrg BD INSULIN 2021-0 Yes [id number] USE 1 U nivers SYRINGE 5-02 S[facility]INGE ity of U-500 2 00:00: TWICE [place] mL 31 gauge 00 DAILY WITH Me dical x 15/64" MEALS. Branch Syrg BD INSULIN 2021-0 Yes [id number] USE 1 U nivers SYRINGE 5-02 S[facility]INGE ity of U-500 2 00:00: TWICE [place] mL 31 gauge 00 DAILY WITH Me dical x 15/64" MEALS. Branch Syrg BD INSULIN 2021-0 Yes [id number] USE 1 U nivers SYRINGE 5-02 S[facility]INGE ity of U-500 11/02 00:00: TWICE [place] mL 31 gauge 00 DAILY WITH Me dical x 15/64" MEALS. Branch Syrg BD INSULIN 2021-0 Yes [id number] USE 1 U nivers SYRINGE 5-02 SYRINGE ity of U-500 2 00:00: TWICE [place] mL 31 gauge 00 DAILY WITH Me dical x 15/64" MEALS. Branch Syrg BD INSULIN 2021-0 Yes [id number] USE 1 U nivers SYRINGE 5-02 SYRINGE ity of U-500 2 00:00: TWICE [place] mL 31 gauge 00 DAILY WITH Me dical x 15/64" MEALS. Branch Syrg BD INSULIN 2021-0 Yes [id number] USE 1 U nivers SYRINGE 5-02 SYRINGE ity of U-500 2 00:00: TWICE [place] mL 31 gauge 00 DAILY WITH Me dical x 15/64" MEALS. Branch Syrg BD INSULIN 2021-0 Yes [id number] USE 1 U nivers SYRINGE 5-02 SYRINGE ity of U-500 2 00:00: TWICE [place] mL 31 gauge 00 DAILY WITH Me dical x 15/64" MEALS. Branch Syrg BD INSULIN 2021-0 Yes [id number] USE 1 U nivers SYRINGE 5-02 SYRINGE ity of U-500 2 00:00: TWICE [place] mL 31 gauge 00 DAILY WITH Me dical x 15/64" MEALS. Branch Syrg BD INSULIN 2021-0 Yes [id number] USE 1 U nivers SYRINGE 5-02 SYRINGE ity of U-500 2 00:00: TWICE [place] mL 31 gauge 00 DAILY WITH Me dical x 15/64" MEALS. Branch Syrg BD INSULIN 2021-0 Yes [id number] USE 1 U nivers SYRINGE 5-02 SYRINGE ity of U-500 2 00:00: TWICE [place] mL 31 gauge 00 DAILY WITH Me dical x 15/64" MEALS. Branch Syrg BD INSULIN 2021-0 Yes [id number] USE 1 U nivers SYRINGE 5-02 S[facility]INGE ity of U-500 2 00:00: TWICE [place] mL 31 gauge 00 DAILY WITH Me dical x 15/64" MEALS. Branch Syrg BD INSULIN 2021-0 Yes [id number] USE 1 U nivers SYRINGE 5-02 S[facility]INGE ity of U-500 2 00:00: TWICE [place] mL 31 gauge 00 DAILY WITH Me dical x 15/64" MEALS. Branch Syrg BD INSULIN 2021-0 Yes [id number] USE 1 U nivers SYRINGE 5-02 SYRINGE ity of U-500 1/2 00:00: TWICE [place] mL 31 gauge 00 DAILY WITH Me dical x 15/64" MEALS. Branch Syrg BD INSULIN 2021-0 Yes [id number] USE 1 U nivers SYRINGE 5-02 S[facility]INGE ity of U-500 2 00:00: TWICE [place] mL 31 gauge 00 DAILY WITH Me dical x 15/64" MEALS. Branch Syrg BD INSULIN 2021-0 Yes [id number] USE 1 U nivers SYRINGE 5-02 S[facility]INGE ity of U-500 2 00:00: TWICE [place] mL 31 gauge 00 DAILY WITH Me dical x 15/64" MEALS. Branch Syrg BD INSULIN 2021-0 Yes [id number] USE 1 U nivers SYRINGE 5-02 S[facility]INGE ity of U-500 2 00:00: TWICE [place] mL 31 gauge 00 DAILY WITH Me dical x 15/64" MEALS. Branch Syrg BD INSULIN 2021-0 Yes [id number] USE 1 U nivers SYRINGE 5-02 SYRINGE ity of U-500 2 00:00: TWICE [place] mL 31 gauge 00 DAILY WITH Me dical x 15/64" MEALS. Branch Syrg BD INSULIN 2021-0 Yes [id number] USE 1 U nivers SYRINGE 5-02 S[facility]INGE ity of U-500 2 00:00: TWICE [place] mL 31 gauge 00 DAILY WITH Me dical x 15/64" MEALS. Branch Syrg BD INSULIN 2021-0 Yes [id number] USE 1 U nivers SYRINGE 5-02 S[facility]INGE ity of U-500 2 00:00: TWICE [place] mL 31 gauge 00 DAILY WITH Me dical x 15/64" MEALS. Branch Syrg BD INSULIN 2021-0 Yes [id number] USE 1 U nivers SYRINGE 5-02 S[facility]INGE ity of U-500 2 00:00: TWICE [place] mL 31 gauge 00 DAILY WITH Me dical x 15/64" MEALS. Branch Syrg BD INSULIN 2021-0 Yes [id number] USE 1 U nivers SYRINGE 5-02 SYRINGE ity of U-500 2 00:00: TWICE [place] mL 31 gauge 00 DAILY WITH Me dical x 15/64" MEALS. Branch Syrg BD INSULIN 2021-0 Yes [id number] USE 1 U nivers SYRINGE 5-02 SYRINGE ity of U-500 2 00:00: TWICE [place] mL 31 gauge 00 DAILY WITH Me dical x 15/64" MEALS. Branch Syrg BD INSULIN 2021-0 Yes [id number] USE 1 U nivers SYRINGE 5-02 SYRINGE ity of U-500 2 00:00: TWICE [place] mL 31 gauge 00 DAILY WITH Me dical x 15/64" MEALS. Branch Syrg BD INSULIN 2021-0 Yes [id number] USE 1 U nivers SYRINGE 5-02 SYRINGE ity of U-500 2 00:00: TWICE [place] mL 31 gauge 00 DAILY WITH Me dical x 15/64" MEALS. Branch Syrg BD INSULIN 0 Yes [id number] USE 1 U nivers SYRINGE 5-02 SYRINGE ity of U-500 2 00:00: TWICE [place] mL 31 gauge 00 DAILY WITH Me dical x 15/64" MEALS. Branch Syrg BD INSULIN 2021-0 Yes [id number] USE 1 U nivers SYRINGE 5-02 SYRINGE ity of U-500 2 00:00: TWICE [place] mL 31 gauge 00 DAILY WITH Me dical x 15/64" MEALS. Branch Syrg BD INSULIN Yes [id number] USE 1 U nivers SYRINGE 5-02 SYRINGE ity of U-500 2 00:00: TWICE [place] mL 31 gauge 00 DAILY WITH Me dical x 15/64" MEALS. Branch Syrg BD INSULIN 0 Yes [id number] USE 1 U nivers SYRINGE 5-02 SYRINGE ity of U-500 2 00:00: TWICE [place] mL 31 gauge 00 DAILY WITH Me dical x 15/64" MEALS. Branch Syrg BD INSULIN 2021-0 Yes [id number] USE 1 U nivers SYRINGE 5-02 SYRINGE ity of U-500 2 00:00: TWICE [place] mL 31 gauge 00 DAILY WITH Me dical x 15/64" MEALS. Branch Syrg BD INSULIN 2021-0 Yes [id number] USE 1 U nivers SYRINGE 5-02 SYRINGE ity of U-500 2 00:00: TWICE [place] mL 31 gauge 00 DAILY WITH Me dical x 15/64" MEALS. Branch Syrg BD INSULIN 2021-0 Yes [id number] USE 1 U nivers SYRINGE 5-02 SYRINGE ity of U-500 2 00:00: TWICE [place] mL 31 gauge 00 DAILY WITH Me dical x 1564" MEALS. Branch Syrg BD INSULIN 2021-0 Yes [id number] USE 1 U nivers SYRINGE 5-02 SYRINGE ity of U-500 2 00:00: TWICE [place] mL 31 gauge 00 DAILY WITH Me dical x 15/64" MEALS. Branch Syrg BD INSULIN 2021-0 Yes [id number] USE 1 U nivers SYRINGE 5-02 SYRINGE ity of U-500 11/02 00:00: TWICE [place] mL 31 gauge 00 DAILY WITH Me dical x 15/64" MEALS. Branch Syrg GABAPENTIN 2021-0 2022- No [id number] TAKE 1 [facility] 600 mg 5-02 05-31 TABLET BY ity of tablet 00:00: 00:00 MOUTH [place] 00 :00 THREE Medical TIMES Branch DAILY sucralfate 2021-0 Yes 1g Take 1 g Alpine anahi (CARAFATE) 3-27 by mouth. An ege 1 g tablet 00:00: Medicin e sucralfate 2021-0 Yes 1g Take 1 g [facility]pine anahi (CARAFATE) 3-27 by mouth. An ege 1 g tablet 00:00: of 00 Medicin e sucralfate 2021-0 Yes 1g Take 1 g [facility] an[facility] (CARAFATE) 3-27 by mouth. An ege 1 g tablet 00:00: 00 Medicin e sucralfate 2021-0 Yes 1g Take 1 g [facility] (CARAFATE) 3-27 by mouth. An ege 1 g tablet 00:00: 00 Medicin e sucralfate 2021-0 Yes [id number] 1g Take 1 [facility] 1 gram 3-27 tablet by ity of tablet 00:00: mouth [place] 00 before Medical meals and Branch at bedtime. sucralfate 2022-0 Yes [id number] 1g Take 1 [facility] 1 gram 3-27 tablet by ity of tablet 00:00: mouth [place] 00 before Medical meals and Branch at bedtime. sucralfate 2022-0 Yes [id number] 1g Take 1 [facility] 1 gram 3-27 tablet by ity of tablet 00:00: mouth [place] 00 before Medical meals and Branch at bedtime. sucralfate 2022-0 Yes [id number] 1g Take 1 [facility] 1 gram 3-27 tablet by ity of tablet 00:00: mouth [place] 00 before Medical meals and Branch at bedtime. sucralfate 2022-0 Yes [id number] 1g Take 1 [facility] 1 gram 3-27 tablet by ity of tablet 00:00: mouth [place] 00 before Medical meals and Branch at bedtime. sucralfate 2022-0 Yes [id number] 1g Take 1 [facility] 1 gram 3-27 tablet by ity of tablet 00:00: mouth [place] 00 before Medical meals and Branch at bedtime. sucralfate 2022-0 Yes [id number] 1g Take 1 [facility] 1 gram 3-27 tablet by ity of tablet 00:00: mouth [place] 00 before Medical meals and Branch at bedtime. sucralfate 2022-0 Yes [id number] 1g Take 1 [facility] 1 gram 3-27 tablet by ity of tablet 00:00: mouth [place] 00 before Medical meals and Branch at bedtime. sucralfate 2022-0 Yes [id number] 1g Take 1 [facility] 1 gram 3-27 tablet by ity of tablet 00:00: mouth [place] 00 before Medical meals and Branch at bedtime. sucralfate 2022-0 Yes [id number] 1g Take 1 [facility] 1 gram 3-27 tablet by ity of tablet 00:00: mouth [place] 00 before Medical meals and Branch at bedtime. sucralfate 2022-0 Yes [id number] 1g Take 1 [facility] 1 gram 3-27 tablet by ity of tablet 00:00: mouth [place] 00 before Medical meals and Branch at bedtime. sucralfate 2022-0 Yes [id number] 1g Take 1 [facility] 1 gram 3-27 tablet by ity of tablet 00:00: mouth [place] 00 before Medical meals and Branch at bedtime. sucralfate 2022-0 Yes [id number] 1g Take 1 [facility] 1 gram 3-27 tablet by ity of tablet 00:00: mouth [place] 00 before Medical meals and Branch at bedtime. sucralfate 2022-0 Yes [id number] 1g Take 1 [facility] 1 gram 3-27 tablet by ity of tablet 00:00: mouth [place] 00 before Medical meals and Branch at bedtime. sucralfate 2022-0 Yes [id number] 1g Take 1 [facility] 1 gram 3-27 tablet by ity of tablet 00:00: mouth [place] 00 before Medical meals and Branch at bedtime. sucralfate 2022-0 Yes [id number] 1g Take 1 [facility] 1 gram 3-27 tablet by ity of tablet 00:00: mouth [place] 00 before Medical meals and Branch at bedtime. sucralfate 2-0 Yes [id number] 1g Take 1 [facility] 1 gram 3-27 tablet by ity of tablet 00:00: mouth [place] 00 before Medical meals and Branch at bedtime. sucralfate 2-0 Yes [id number] 1g Take 1 [facility] 1 gram 3-27 tablet by ity of tablet 00:00: mouth [place] 00 before Medical meals and Branch at bedtime. sucralfate 2021-0 Yes [id number] 1g Take 1 [facility] 1 gram 3-27 tablet by ity of tablet 00:00: mouth [place] 00 before Medical meals and Branch at bedtime. sucralfate 2021-0 Yes [id number] 1g Take 1 [facility] 1 gram 3-27 tablet by ity of tablet 00:00: mouth [place] 00 before Medical meals and Branch at bedtime. sucralfate 2021-0 Yes [id number] 1g Take 1 [facility] 1 gram 3-27 tablet by ity of tablet 00:00: mouth [place] 00 before Medical meals and Branch at bedtime. sucralfate 2021-0 Yes [id number] 1g Take 1 [facility] 1 gram 3-27 tablet by ity of tablet 00:00: mouth [place] 00 before Medical meals and Branch at bedtime. sucralfate 2021-0 Yes [id number] 1g Take 1 [facility] 1 gram 3-27 tablet by ity of tablet 00:00: mouth [place] 00 before Medical meals and Branch at bedtime. sucralfate 2021-0 Yes [id number] 1g Take 1 [facility] 1 gram 3-27 tablet by ity of tablet 00:00: mouth [place] 00 before Medical meals and Branch at bedtime. sucralfate 2-0 Yes [id number] 1g Take 1 [facility] 1 gram 3-27 tablet by ity of tablet 00:00: mouth [place] 00 before Medical meals and Branch at bedtime. sucralfate 2-0 Yes [id number] 1g Take 1 [facility] 1 gram 3-27 tablet by ity of tablet 00:00: mouth [place] 00 before Medical meals and Branch at bedtime. sucralfate 2-0 Yes [id number] 1g Take 1 [facility] 1 gram 3-27 tablet by ity of tablet 00:00: mouth [place] 00 before Medical meals and Branch at bedtime. sucralfate 2022-0 Yes [id number] 1g Take 1 [facility] 1 gram 3-27 tablet by ity of tablet 00:00: mouth [place] 00 before Medical meals and Branch at bedtime. sucralfate 2022-0 Yes [id number] 1g Take 1 [facility] 1 gram 3-27 tablet by ity of tablet 00:00: mouth [place] 00 before Medical meals and Branch at bedtime. sucralfate 2022-0 Yes [id number] 1g Take 1 [facility] 1 gram 3-27 tablet by ity of tablet 00:00: mouth [place] 00 before Medical meals and Branch at bedtime. sucralfate 2022-0 Yes [id number] 1g Take 1 [facility] 1 gram 3-27 tablet by ity of tablet 00:00: mouth [place] 00 before Medical meals and Branch at bedtime. sucralfate 2022-0 Yes [id number] 1g Take 1 [facility] 1 gram 3-27 tablet by ity of tablet 00:00: mouth [place] 00 before Medical meals and Branch at bedtime. sucralfate 2-0 Yes [id number] 1g Take 1 [facility] 1 gram 3-27 tablet by ity of tablet 00:00: mouth [place] 00 before Medical meals and Branch at bedtime. sucralfate 2-0 Yes [id number] 1g Take 1 [facility] 1 gram 3-27 tablet by ity of tablet 00:00: mouth [place] 00 before Medical meals and Branch at bedtime. sucralfate 2022-0 Yes [id number] 1g Take 1 [facility] 1 gram 3-27 tablet by ity of tablet 00:00: mouth [place] 00 before Medical meals and Branch at bedtime. sucralfate 2022-0 Yes [id number] 1g Take 1 [facility] 1 gram 3-27 tablet by ity of tablet 00:00: mouth [place] 00 before Medical meals and Branch at bedtime. sucralfate 2022-0 Yes [id number] 1g Take 1 [facility] 1 gram 3-27 tablet by ity of tablet 00:00: mouth [place] 00 before Medical meals and Branch at bedtime. sucralfate 2022-0 Yes [id number] 1g Take 1 [facility] 1 gram 3-27 tablet by ity of tablet 00:00: mouth [place] 00 before Medical meals and Branch at bedtime. sucralfate 2022-0 Yes [id number] 1g Take 1 [facility] 1 gram 3-27 tablet by ity of tablet 00:00: mouth [place] 00 before Medical meals and Branch at bedtime. sucralfate 2022-0 Yes [id number] 1g Take 1 [facility] 1 gram 3-27 tablet by ity of tablet 00:00: mouth [place] 00 before Medical meals and Branch at bedtime. sucralfate 2022-0 Yes [id number] 1g Take 1 [facility] 1 gram 3-27 tablet by ity of tablet 00:00: mouth [place] 00 before Medical meals and Branch at bedtime. sucralfate 2-0 Yes [id number] 1g Take 1 [facility] 1 gram 3-27 tablet by ity of tablet 00:00: mouth [place] 00 before Medical meals and Branch at bedtime. sucralfate 2-0 Yes [id number] 1g Take 1 [facility] 1 gram 3-27 tablet by ity of tablet 00:00: mouth [place] 00 before Medical meals and Branch at bedtime. sucralfate 2-0 Yes [id number] 1g Take 1 [facility] 1 gram 3-27 tablet by ity of tablet 00:00: mouth [place] 00 before Medical meals and Branch at bedtime. sucralfate 2-0 Yes [id number] 1g Take 1 [facility] 1 gram 3-27 tablet by ity of tablet 00:00: mouth [place] 00 before Medical meals and Branch at bedtime. sucralfate 2-0 Yes [id number] 1g Take 1 [facility] 1 gram 3-27 tablet by ity of tablet 00:00: mouth [place] 00 before Medical meals and Branch at bedtime. sucralfate 2-0 Yes [id number] 1g Take 1 [facility] 1 gram 3-27 tablet by ity of tablet 00:00: mouth [place] 00 before Medical meals and Branch at bedtime. sucralfate 2022-0 Yes [id number] 1g Take 1 [facility] 1 gram 3-27 tablet by ity of tablet 00:00: mouth [place] 00 before Medical meals and Branch at bedtime. sucralfate 2022-0 Yes [id number] 1g Take 1 [facility] 1 gram 3-27 tablet by ity of tablet 00:00: mouth [place] 00 before Medical meals and Branch at bedtime. metoprolol 0 Yes 100mg QD Take 100 [...] mari 1 mg Tab 02 Center lubiproston 2021-0 Yes 24ug Q.5D Take 24 [...] needed for Anxiety. hydrALAZINE 0 Yes 10mg Q.91261884 Take [address] [facility] (APRESOLINE 3-11 [id number] by mouth 3 [facility] ) 10 MG [...] 02 Center tablet gabapentin 2021-0 Yes 100mg Q.[id number] Take [address] [facility] (NEURONTIN) 3-11 [id number] mg by L ukes 100 MG 14:10: [...] needed for Anxiety. hydrALAZINE 2021-0 Yes 10mg Q.[id number] Take [address] [facility] (APRESOLINE 3-11 [id number] by mouth 3 [facility] ) 10 MG [...] 02 Center tablet gabapentin 0 Yes 100mg Q.[id number] Take [address] [facility] (NEURONTIN) 3-11 [id number] mg by L ukes 100 MG 14:10: [...] needed for Anxiety. hydrALAZINE 0 Yes 10mg Q.[id number] Take [address] [facility] (APRESOLINE 3-11 [id number] by mouth 3 [facility] ) 10 MG [...] 02 Center tablet gabapentin 2021-0 Yes 100mg Q.[id number] Take [address] [facility] (NEURONTIN) 3-11 [id number] mg by L ukes 100 MG 14:10: [...] needed for Anxiety. hydrALAZINE 2021-0 Yes 10mg Q.[id number] Take [address] [facility] (APRESOLINE 3-11 [id number] by mouth 3 [facility] ) 10 MG 14:10: 3D (three) Medical tablet 02 times Center daily In am. hydroCHLORO 2022-0 Yes 25mg QD Take [address] [facility] thiazide 3-11 by mouth [facility] (HYDRODIURI 14:10: daily. Medi mari L) 25 MG 02 Center tablet spironolact 202-0 Yes 25mg QD Take [address] [facility] one 3-11 by mouth [facility] (ALDACTONE) 14:10: daily. Medi mari 25 MG 02 Center tablet gabapentin 2021-0 Yes 100mg Q.[id number] Take [address] [facility] (NEURONTIN) 3-11 [id number] mg by L ukes 100 MG 14:10: 3D mouth 3 Medical capsule 02 (three) Center times daily. amLODIPine 2021-0 Yes 10mg QD Take [address] [facility] (NORVASC) 3-11 by mouth [facility] 10 MG 14:10: daily In Medical tablet 02 am. Center insulin 2021-[address] [facility] aspart 3-11 subcutaneo [...] Center daily as needed for Nausea. liraglutide 2021-[address] [facility] (Victoza 3-11 subcutaneo [facility] 2-[facility]) 0.6 14:10: usly. Medica l mg/0.1 mL 02 Center (18 mg/3 mL) PnIj metoprolol 2021-0 Yes 100mg QD Take 100 [...] mari 1 mg Tab 02 Center lubiproston 2021-0 Yes 24ug Q.5D Take 24 [...] needed for Anxiety. hydrALAZINE 2021-0 Yes 10mg Q.76463501 Take [address] [facility] (APRESOLINE 3-11 [id number] by mouth 3 [facility] ) 10 MG [...] 02 Center tablet gabapentin 2021-0 Yes 100mg Q.[id number] Take [address] [facility] (NEURONTIN) 3-11 [id number] mg by L ukes 100 MG 14:10: 3D mouth 3 Medical capsule 02 (three) Center times daily. amLODIPine 2-0 Yes 10mg QD Take 10 mg C [...] needed for Anxiety. hydrALAZINE 2021-0 Yes 10mg Q.[id number] Take [address] [facility] (APRESOLINE 3-11 [id number] by mouth 3 [facility] ) 10 MG [...] 02 Center tablet gabapentin 2021-0 Yes 100mg Q.[id number] Take [address] [facility] (NEURONTIN) 3-11 [id number] mg by L ukes 100 MG 14:10: [...] needed for Anxiety. hydrALAZINE 0 Yes 10mg Q.[id number] Take [address] [facility] (APRESOLINE 3-11 [id number] by mouth 3 [facility] ) 10 MG [...] 02 Center tablet gabapentin 0 Yes 100mg Q.[id number] Take [address] [facility] (NEURONTIN) 3-11 [id number] mg by L ukes 100 MG 14:10: [...] needed for Anxiety. hydrALAZINE 2021-0 Yes 10mg Q.[id number] Take [address] [facility] (APRESOLINE 3-11 [id number] by mouth 3 [facility] ) 10 MG [...] 02 Center tablet gabapentin 2021-0 Yes 100mg Q.[id number] Take [address] [facility] (NEURONTIN) 3-11 [id number] mg by L ukes 100 MG 14:10: [...] as needed for Anxiety. hydrALAZINE Yes 10mg Q.[id number] Take [address] [facility] (APRESOLINE 3-11 [id number] by mouth [facility] ) 10 MG [...] MG 02 Center tablet gabapentin Yes 100mg Q.[id number] Take [address] [facility] (NEURONTIN) 3-11 [id number] mg by L ukes 100 MG 14:10: [...] TWICE Medical DAILY Branch HYDROCHLORO 0 Yes [id number] 12.5mg TAKE 1 [facility] THIAZIDE 1-19 CAPSULE BY ity o f 12.5 mg 00:00: MOUTH [place] capsule 00 DAILY Medical Branch HYDROCHLORO 2021-0 Yes [id number] 12.5mg TAKE 1 [facility] THIAZIDE 1-19 CAPSULE BY ity o f 12.5 mg 00:00: MOUTH [place] capsule 00 DAILY Medical Branch HYDROCHLORO 2021-0 Yes [id number] 12.5mg TAKE 1 [facility] THIAZIDE 1-19 CAPSULE BY ity o f 12.5 mg 00:00: MOUTH [place] capsule 00 DAILY Medical Branch HYDROCHLORO 2021-0 Yes [id number] 12.5mg TAKE 1 [facility] THIAZIDE 1-19 CAPSULE BY ity o f 12.5 mg 00:00: MOUTH [place] capsule 00 DAILY [facility] HYDROCHLORO 0 2021- No [id number] 12.5mg TAKE 1 [facility] THIAZIDE 1-19 07-18 CAPSULE BY ity of 12.5 mg 00:00: 00:00 MOUTH [place] capsule 00 :00 DAILY [facility] Prucaloprid 0 Yes [id number] 2mg Take 2 mg [facility] e Succinate 1-06 by mouth An ege 2 MG TABS 00:00: daily. of Medicin e Prucaloprid Yes [id number] 2mg Take 2 mg [facility] Succinate 1-06 by mouth An ege 2 MG TABS 00:00: daily. of Medicin e PEG-KCl-NaC Yes [id number] [MOVI [facility] l-NaSulf-Na 1-06 PREP] Take [facility] 00:[facility]: as of (MOVIPREP) 00 directed. Medi patsy 100 g SOLR e Prucaloprid Yes [id number] 2mg Take 2 mg [facility] e Succinate 1-06 by mouth [place] 2 MG TABS 00:00: daily. of Medicin e Prucaloprid Yes [id number] 2mg Take 2 mg [facility] e Succinate 1-06 by mouth [place] 2 MG TABS 00:00: daily. of Medicin e Prucaloprid Yes [id number] 2mg Take 2 mg [facility] e Succinate 1-06 by mouth [place] 2 MG TABS 00:00: daily. of Medicin e nitroglycer 2020-11 Yes nitroglyce [facility] in 12-28 rin 0.4 mg [place] (NITROSTAT) 00:00: sublingual of 0.4 mg [address] 1 e tablet TABLET UNDER THE TONGUE EVERY 5 MINUTES NEEDED FOR CHEST PAIN. nitroglycer 2020-11 Yes nitroglyce [facility] in 12-28 rin 0.4 mg [place] (NITROSTAT) 00:00: sublingual of 0.4 mg [address] 1 e tablet TABLET UNDER THE TONGUE EVERY 5 MINUTES NEEDED FOR CHEST PAIN. nitroglycer 2020-11 Yes nitroglyce [facility] in 12-28 rin 0.4 mg [place] (NITROSTAT) 00:00: sublingual of 0.4 mg 00 [...] AREA FOUR TIMES DAILY DICLOFENAC 2020-11 Yes [id number] APPLY TO Univers SODIUM 1 % 2-02 THE ity of gel 00:00: AFFECTED [place] 00 AREA FOUR Medical TIMES Branch DAILY DICLOFENAC 2020-11 Yes [id number] APPLY TO Univers SODIUM 1 % 2-02 THE ity of gel 00:00: AFFECTED [place] 00 AREA FOUR Medical TIMES Branch DAILY DICLOFENAC 2020-11 Yes [id number] APPLY TO Univers SODIUM 1 % 2-02 THE ity of gel 00:00: AFFECTED [place] 00 AREA FOUR Medical TIMES Branch DAILY DICLOFENAC 2020-11 Yes [id number] APPLY TO Univers SODIUM 1 % 2-02 THE ity of gel 00:00: AFFECTED [place] 00 [facility] FOUR Medical TIMES Branch DAILY DICLOFENAC 2020-11 Yes [id number] APPLY TO Univers SODIUM 1 % 2-02 THE ity of gel 00:00: AFFECTED 00 [facility] FOUR Medical TIMES Branch DAILY DICLOFENAC 2020-11 Yes [id number] APPLY TO Univers SODIUM 1 % 2-02 THE ity of gel 00:00: AFFECTED 00 [facility] Medical TIMES Branch DAILY DICLOFENAC 2020-11 Yes [id number] APPLY TO Univers SODIUM 1 % 2-02 THE ity of gel 00:00: AFFECTED 00 [facility] Medical TIMES Branch DAILY DICLOFENAC 2020-11 Yes [id number] APPLY TO Univers SODIUM 1 % 2-02 THE ity of gel 00:00: AFFECTED 00 [facility] Medical TIMES Branch DAILY DICLOFENAC 2020-11 Yes [id number] APPLY TO Univers SODIUM 1 % 2-02 THE ity of gel 00:00: AFFECTED [place] [facility] Medical TIMES Branch DAILY DICLOFENAC 2020-11 Yes [id number] APPLY TO Univers SODIUM 1 % 2-02 THE ity of gel 00:00: AFFECTED [place] [facility] Medical TIMES Branch DAILY DICLOFENAC 2020-11 Yes [id number] APPLY TO Univers SODIUM 1 % 2-02 THE ity of gel 00:00: AFFECTED [facility] FOUR Medical TIMES Branch DAILY DICLOFENAC 2020-11 Yes [id number] APPLY TO Univers SODIUM 1 % 2-02 THE ity of gel 00:00: AFFECTED [place] [facility] Medical TIMES Branch DAILY DICLOFENAC 2020-11 Yes [id number] APPLY TO Univers SODIUM 1 % 2-02 THE ity of gel 00:00: AFFECTED [place] [facility] Medical TIMES Branch DAILY DICLOFENAC 2020-11 Yes [id number] APPLY TO Univers SODIUM 1 % 2-02 THE ity of gel 00:00: AFFECTED [facility] FOUR Medical TIMES Branch DAILY DICLOFENAC 2020-11 Yes [id number] APPLY TO Univers SODIUM 1 % 2-02 THE ity of gel 00:00: AFFECTED [place] 00 [facility] FOUR Medical TIMES Branch DAILY DICLOFENAC 2020-11 Yes [id number] APPLY TO Univers SODIUM 1 % 2-02 THE ity of gel 00:00: AFFECTED [place] 00 [facility] FOUR Medical TIMES Branch DAILY DICLOFENAC 2020-11 Yes [id number] APPLY TO Univers SODIUM 1 % 2-02 THE ity of gel 00:00: AFFECTED [place] 00 [facility] FOUR Medical TIMES Branch DAILY DICLOFENAC 2020-11 Yes [id number] APPLY TO Univers SODIUM 1 % 2-02 THE ity of gel 00:00: AFFECTED [place] 00 AREA FOUR Medical TIMES Branch DAILY DICLOFENAC 2020-11 Yes [id number] APPLY TO Univers SODIUM 1 % 2-02 THE ity of gel 00:00: AFFECTED [place] 00 AREA FOUR Medical TIMES Branch DAILY DICLOFENAC 2020-11 Yes [id number] APPLY TO Univers SODIUM 1 % 2-02 THE ity of gel 00:00: AFFECTED [place] 00 AREA FOUR Medical TIMES Branch DAILY DICLOFENAC 2020-11 Yes [id number] APPLY TO Univers SODIUM 1 % 2-02 THE ity of gel 00:00: AFFECTED [place] 00 AREA FOUR Medical TIMES Branch DAILY DICLOFENAC 2020-11 Yes [id number] APPLY TO Univers SODIUM 1 % 2-02 THE ity of gel 00:00: AFFECTED [place] 00 AREA FOUR Medical TIMES Branch DAILY DICLOFENAC 2020-11- No [id number] APPLY TO Univers SODIUM 1 % 2-02 10-25 THE ity of gel 00:00: 00:00 AFFECTED [place] 00 :00 AREA FOUR Medical TIMES Branch DAILY DICLOFENAC 2020-11- No [id number] APPLY TO Univers SODIUM 1 % 2-02 10-25 THE ity of gel 00:00: 00:00 AFFECTED [place] 00 :00 AREA FOUR Medical TIMES Branch DAILY colchicine 2020-11 Yes [id number] .6mg Take 1 U nivers 0.6 mg 0-07 tablet by ity of tablet 00:00: mouth [place] 00 daily. Medical Branch colchicine 2020-11 Yes [id number] .6mg Take 1 U nivers 0.6 mg 0-07 tablet by ity of tablet 00:00: mouth [place] 00 daily. Medical Branch colchicine 2020-11 Yes [id number] .6mg Take 1 U nivers 0.6 mg 0-07 tablet by ity of tablet 00:00: mouth [place] 00 daily. Medical Branch colchicine 2020-11 Yes [id number] .6mg Take 1 U nivers 0.6 mg 0-07 tablet by ity of tablet 00:00: mouth [place] 00 daily. Medical Branch colchicine 2020-11 Yes [id number] .6mg Take 1 U nivers 0.6 mg 0-07 tablet by ity of tablet 00:00: mouth [place] 00 daily. Medical Branch colchicine 2020-11 Yes [id number] .6mg Take 1 U nivers 0.6 mg 0-07 tablet by ity of tablet 00:00: mouth [place] 00 daily. Medical Branch colchicine 2020-11 Yes [id number] .6mg Take 1 U nivers 0.6 mg 0-07 tablet by ity of tablet 00:00: mouth [place] 00 daily. Medical Branch colchicine 2020-11 Yes [id number] .6mg Take 1 U nivers 0.6 mg 0-07 tablet by ity of tablet 00:00: mouth [place] 00 daily. Medical Branch colchicine 2020-11 Yes [id number] .6mg Take 1 U nivers 0.6 mg 0-07 tablet by ity of tablet 00:00: mouth [place] 00 daily. Medical Branch colchicine 2020-11 Yes [id number] .6mg Take 1 U nivers 0.6 mg 0-07 tablet by ity of tablet 00:00: mouth [place] 00 daily. Medical Branch colchicine 2020-11 Yes [id number] .6mg Take 1 U nivers 0.6 mg 0-07 tablet by ity of tablet 00:00: mouth [place] 00 daily. Medical Branch colchicine 2020-11 Yes [id number] .6mg Take 1 U nivers 0.6 mg 0-07 tablet by ity of tablet 00:00: mouth [place] 00 daily. Medical Branch colchicine 2020-11 Yes [id number] .6mg Take 1 U nivers 0.6 mg 0-07 tablet by ity of tablet 00:00: mouth [place] 00 daily. [facility] Branch colchicine 2020-11 202- No [id number] .6mg Take 1 Univers 0.6 mg 0-07 09-19 tablet by ity of tablet 00:00: 00:00 mouth [place] 00 :00 daily. Medical Branch TRUEPLUS 0 Yes USE TWICE Univ ers INSULIN 1 9-14 DAILY ity of mL 30 gauge 00:00: [place] x 5/16 Syrg 00 [facility] Branch TRUEPLUS 0 Yes USE TWICE Univ ers INSULIN 1 9-14 DAILY ity of mL 30 gauge 00:00: [place] x 5/16 Syrg 00 Medical Branch TRUEPLUS 2020-0 Yes USE TWICE Univ ers INSULIN 1 9-14 DAILY ity of mL 30 gauge 00:00: [place] x 5/16 Syrg 00 Medical [place] TRUEPLUS 2020-0 Yes USE TWICE Univ ers [...] [place] x /16 Syrg Medical Branch TRUEPLUS 2021-0 Yes USE TWICE [...] [place] x 5/16 Syrg Medical Branch TRUEPLUS 2021-0 Yes USE TWICE [...] 30 gauge 00:00: [place] x /16 Syrg 00 Medical Branch TRUEPLUS 2020-0 Yes [...] 00:00: [place] x / Syrg Medical Branch mirtazapine 0 Yes 15mg Take 15 mg Univers 15 mg 7-14 by mouth ity of tablet 09:38: at [place] [address] bedtime. Medical Branch mesalamine 2020-0 Yes 1.5g Take 1.5 g U nivers 0.375 gram 7-14 by mouth ity o f 24 hr 09:38: daily. [place] [address] Medical Branch mirtazapine 2020-0 Yes 15mg Take 15 mg Univers 15 mg 7-14 by mouth ity of tablet 09:38: at [place] [address] bedtime. Medical Branch mesalamine 0 Yes 1.5g Take 1.5 g U nivers 0.375 gram 7-14 by mouth ity o f 24 hr 09:38: daily. [place] [address] Medical Branch mirtazapine 2020-0 Yes 15mg Take 15 mg [facility] 15 mg 7-14 by mouth ity of tablet 09:38: at [place] [address] bedtime. Medical Branch mesalamine 2020-0 Yes 1.5g Take 1.5 g U nivers 0.375 gram 7-14 by mouth ity o f 24 hr 09:38: daily. [place] [address] Medical Branch mirtazapine 2020-0 Yes 15mg Take 15 mg [facility] 15 mg 7-14 by mouth ity of tablet 09:38: at [place] [address] bedtime. Medical Branch mesalamine 2020-0 Yes 1.5g Take 1.5 g U nivers 0.375 gram 7-14 by mouth ity o f 24 hr 09:38: daily. [place] [address] Medical Branch mirtazapine 2020-0 Yes 15mg Take 15 mg Univers 15 mg 7-14 by mouth ity of tablet 09:38: at [place] [address] bedtime. Medical Branch mesalamine 2020-0 Yes 1.5g Take 1.5 g U nivers 0.375 gram 7-14 by mouth ity o f 24 hr 09:38: daily. [place] capsule 49 Medical Branch mirtazapine 2020-0 Yes 15mg Take 15 mg [facility] 15 mg 7-14 by mouth ity of tablet 09:38: at [place] [address] bedtime. Medical Branch mesalamine 2020-0 Yes 1.5g Take 1.5 g U nivers 0.375 gram 7-14 by mouth ity o f 24 hr 09:38: daily. [facility] 49 Medical Branch mirtazapine 2020-0 Yes 15mg Take 15 mg Univers 15 mg 7-14 by mouth ity of tablet 09:38: at [place] [address] bedtime. Medical Branch mesalamine 2020-0 Yes 1.5g Take 1.5 g U nivers 0.375 gram 7-14 by mouth ity o f 24 hr 09:38: daily. [facility] 49 Medical Branch mirtazapine 2020-0 Yes 15mg Take 15 mg Univers 15 mg 7-14 by mouth ity of tablet 09:38: at [place] [address] bedtime. Medical Branch mesalamine 2020-0 Yes 1.5g Take 1.5 g U nivers 0.375 gram 7-14 by mouth ity o f 24 hr 09:38: daily. [facility] 49 Medical Branch mirtazapine 2020-0 Yes 15mg Take 15 mg Univers 15 mg 7-14 by mouth ity of tablet 09:38: at [place] [address] bedtime. Medical [place] mesalamine 2020-0 Yes 1.5g Take 1.5 g U nivers 0.375 gram 7-14 by mouth ity o f 24 hr 09:38: daily. [facility] 49 Medical [place] mirtazapine 2020-0 Yes 15mg Take 15 mg Univers 15 mg 7-14 by mouth ity of tablet 09:38: at [place] [address] bedtime. Medical [place] mesalamine 2020-0 Yes 1.5g Take 1.5 g U nivers 0.375 gram 7-14 by mouth ity o f 24 hr 09:38: daily. [facility] 49 Medical [place] mirtazapine 2020-0 Yes 15mg Take 15 mg Univers 15 mg 7-14 by mouth ity of tablet 09:38: at [place] [address] bedtime. Medical Branch mesalamine 2020-0 Yes 1.5g Take 1.5 g U nivers 0.375 gram 7-14 by mouth ity o f 24 hr 09:38: daily. [place] capsule 49 Medical Branch mirtazapine 2020-0 Yes 15mg Take 15 mg [facility] 15 mg 7-14 by mouth ity of tablet 09:38: at [place] [address] bedtime. Medical Branch mesalamine 2020-0 Yes 1.5g Take 1.5 g U nivers 0.375 gram 7-14 by mouth ity o f 24 hr 09:38: daily. [facility] 49 Medical Branch mirtazapine 2020-0 Yes 15mg Take 15 mg Univers 15 mg 7-14 by mouth ity of tablet 09:38: at [place] [address] bedtime. Medical Branch mesalamine 2020-0 Yes 1.5g Take 1.5 g U nivers 0.375 gram 7-14 by mouth ity o f 24 hr 09:38: daily. [facility] 49 Medical Branch mirtazapine 2020-0 Yes 15mg Take 15 mg Univers 15 mg 7-14 by mouth ity of tablet 09:38: at [place] [address] bedtime. Medical Branch mesalamine 2020-0 Yes 1.5g Take 1.5 g U nivers 0.375 gram 7-14 by mouth ity o f 24 hr 09:38: daily. [facility] 49 Medical Branch mirtazapine 2020-0 Yes 15mg Take 15 mg [facility] 15 mg 7-14 by mouth ity of tablet 09:38: at [place] [address] bedtime. Medical Branch mesalamine 2020-0 Yes 1.5g Take 1.5 g U nivers 0.375 gram 7-14 by mouth ity o f 24 hr 09:38: daily. [facility] 49 Medical Branch mirtazapine 2020-0 Yes 15mg Take 15 mg Univers 15 mg 7-14 by mouth ity of tablet 09:38: at [place] [address] bedtime. Medical Branch mesalamine 2020-0 Yes 1.5g Take 1.5 g U nivers 0.375 gram 7-14 by mouth ity o f 24 hr 09:38: daily. [facility] 49 Medical Branch mirtazapine 2020-0 Yes 15mg Take 15 mg [facility] 15 mg 7-14 by mouth ity of tablet 09:38: at [place] [address] bedtime. Medical Branch mesalamine 2020-0 Yes 1.5g Take 1.5 g U nivers 0.375 gram 7-14 by mouth ity o f 24 hr 09:38: daily. [place] capsule 49 Medical Branch mirtazapine 2020-0 Yes 15mg Take 15 mg [facility] 15 mg 7-14 by mouth ity of tablet 09:38: at [place] [address] bedtime. Medical Branch mesalamine 2020-0 Yes 1.5g Take 1.5 g U nivers 0.375 gram 7-14 by mouth ity o f 24 hr 09:38: daily. [facility] 49 Medical Branch mirtazapine 2020-0 Yes 15mg Take 15 mg [facility] 15 mg 7-14 by mouth ity of tablet 09:38: at [place] [address] bedtime. Medical Branch mesalamine 2020-0 Yes 1.5g Take 1.5 g U nivers 0.375 gram 7-14 by mouth ity o f 24 hr 09:38: daily. [facility] 49 Medical Branch mirtazapine 2020-0 Yes 15mg Take 15 mg [facility] 15 mg 7-14 by mouth ity of tablet 09:38: at [place] [address] bedtime. Medical [place] mesalamine 2020-0 Yes 1.5g Take 1.5 g U nivers 0.375 gram 7-14 by mouth ity o f 24 hr 09:38: daily. [facility] 49 Medical Branch mirtazapine 2020-0 Yes 15mg Take 15 mg [facility] 15 mg 7-14 by mouth ity of tablet 09:38: at [place] [address] bedtime. Medical [place] mesalamine 2020-0 Yes 1.5g Take 1.5 g U nivers 0.375 gram 7-14 by mouth ity o f 24 hr 09:38: daily. [facility] 49 Medical Branch mirtazapine 2020-0 Yes 15mg Take 15 mg [facility] 15 mg 7-14 by mouth ity of tablet 09:38: at [place] [address] bedtime. Medical [place] mesalamine 2020-0 Yes 1.5g Take 1.5 g U nivers 0.375 gram 7-14 by mouth ity o f 24 hr 09:38: daily. [facility] 49 Medical Branch mirtazapine 2020-0 Yes 15mg Take 15 mg [facility] 15 mg 7-14 by mouth ity of tablet 09:38: at [place] [address] bedtime. Medical Branch mesalamine 2020-0 Yes 1.5g Take 1.5 g U nivers 0.375 gram 7-14 by mouth ity o f 24 hr 09:38: daily. [facility] 49 Medical Branch mirtazapine 2020-0 Yes 15mg Take 15 mg [facility] 15 mg 7-14 by mouth ity of tablet 09:38: at [place] [address] bedtime. Medical Branch mesalamine 2020-0 Yes 1.5g Take 1.5 g U nivers 0.375 gram 7-14 by mouth ity o f 24 hr 09:38: daily. [facility] 49 Medical Branch mirtazapine 2020-0 Yes 15mg Take 15 mg [facility] 15 mg 7-14 by mouth ity of tablet 09:38: at [place] [address] bedtime. Medical Branch mesalamine 2020-0 Yes 1.5g Take 1.5 g U nivers 0.375 gram 7-14 by mouth ity o f 24 hr 09:38: daily. [facility] 49 Medical Branch mirtazapine 2020-0 Yes 15mg Take 15 mg Univers 15 mg 7-14 by mouth ity of tablet 09:38: at [place] [address] bedtime. Medical Branch mesalamine 2020-0 Yes 1.5g Take 1.5 g U nivers 0.375 gram 7-14 by mouth ity o f 24 hr 09:38: daily. [facility] 49 Medical Branch mirtazapine 2020-0 Yes 15mg Take 15 mg Univers 15 mg 7-14 by mouth ity of tablet 09:38: at [place] [address] bedtime. Medical Branch mesalamine 2020-0 Yes 1.5g Take 1.5 g U nivers 0.375 gram 7-14 by mouth ity o f 24 hr 09:38: daily. [facility] 49 Medical Branch mirtazapine 2020-0 Yes 15mg Take 15 mg Univers 15 mg 7-14 by mouth ity of tablet 09:38: at [place] [address] bedtime. Medical Branch mesalamine 2020-0 Yes 1.5g Take 1.5 g U nivers 0.375 gram 7-14 by mouth ity o f 24 hr 09:38: daily. [facility] 49 Medical Branch mirtazapine 2020-0 Yes 15mg Take 15 mg Univers 15 mg 7-14 by mouth ity of tablet 09:38: at [place] [address] bedtime. Medical Branch mesalamine 2020-0 Yes 1.5g Take 1.5 g U nivers 0.375 gram 7-14 by mouth ity o f 24 hr 09:38: daily. [place] capsule 49 Medical Branch mirtazapine 2020-0 Yes 15mg Take 15 mg Univers 15 mg 7-14 by mouth ity of tablet 09:38: at [place] [address] bedtime. Medical Branch mesalamine 2020-0 Yes 1.5g Take 1.5 g U nivers 0.375 gram 7-14 by mouth ity o f 24 hr 09:38: daily. [facility] 49 Medical Branch mirtazapine 2020-0 Yes 15mg Take 15 mg Univers 15 mg 7-14 by mouth ity of tablet 09:38: at [place] [address] bedtime. Medical Branch mesalamine 2020-0 Yes 1.5g Take 1.5 g U nivers 0.375 gram 7-14 by mouth ity o f 24 hr 09:38: daily. [facility] 49 Medical Branch mirtazapine 2020-0 Yes 15mg Take 15 mg Univers 15 mg 7-14 by mouth ity of tablet 09:38: at [place] [address] bedtime. Medical [place] mesalamine 2020-0 Yes 1.5g Take 1.5 g U nivers 0.375 gram 7-14 by mouth ity o f 24 hr 09:38: daily. [facility] 49 Medical Branch mirtazapine 2020-0 Yes 15mg Take 15 mg [facility] 15 mg 7-14 by mouth ity of tablet 09:38: at [place] [address] bedtime. Medical [place] mesalamine 2020-0 Yes 1.5g Take 1.5 g U nivers 0.375 gram 7-14 by mouth ity o f 24 hr 09:38: daily. [facility] 49 Medical Branch mirtazapine 2020-0 Yes 15mg Take 15 mg [facility] 15 mg 7-14 by mouth ity of tablet 09:38: at [place] [address] bedtime. Medical [place] mesalamine 2020-0 Yes 1.5g Take 1.5 g U nivers 0.375 gram 7-14 by mouth ity o f 24 hr 09:38: daily. [facility] 49 Medical Branch mirtazapine 2020-0 Yes 15mg Take 15 mg [facility] 15 mg 7-14 by mouth ity of tablet 09:38: at [place] [address] bedtime. Medical Branch mesalamine 2020-0 Yes 1.5g Take 1.5 g U nivers 0.375 gram 7-14 by mouth ity o f 24 hr 09:38: daily. [place] capsule 49 Medical Branch mirtazapine 2020-0 Yes 15mg Take 15 mg Univers 15 mg 7-14 by mouth ity of tablet 09:38: at [place] [address] bedtime. Medical Branch mesalamine 2020-0 Yes 1.5g Take 1.5 g U nivers 0.375 gram 7-14 by mouth ity o f 24 hr 09:38: daily. [facility] 49 Medical Branch mirtazapine 2020-0 Yes 15mg Take 15 mg [facility] 15 mg 7-14 by mouth ity of tablet 09:38: at [place] [address] bedtime. Medical Branch mesalamine 2020-0 Yes 1.5g Take 1.5 g U nivers 0.375 gram 7-14 by mouth ity o f 24 hr 09:38: daily. [facility] 49 Medical Branch mirtazapine 2020-0 Yes 15mg Take 15 mg [facility] 15 mg 7-14 by mouth ity of tablet 09:38: at [place] [address] bedtime. Medical Branch mesalamine 2020-0 Yes 1.5g Take 1.5 g U nivers 0.375 gram 7-14 by mouth ity o f 24 hr 09:38: daily. [facility] 49 Medical Branch mirtazapine 2020-0 Yes 15mg Take 15 mg [facility] 15 mg 7-14 by mouth ity of tablet 09:38: at [place] [address] bedtime. Medical Branch mesalamine 2020-0 Yes 1.5g Take 1.5 g U nivers 0.375 gram 7-14 by mouth ity o f 24 hr 09:38: daily. [facility] 49 Medical Branch mirtazapine 2020-0 Yes 15mg Take 15 mg Univers 15 mg 7-14 by mouth ity of tablet 09:38: at [place] [address] bedtime. Medical Branch mesalamine 2020-0 Yes 1.5g Take 1.5 g U nivers 0.375 gram 7-14 by mouth ity o f 24 hr 09:38: daily. [facility] 49 Medical Branch mirtazapine 2020-0 Yes 15mg Take 15 mg [facility] 15 mg 7-14 by mouth ity of tablet 09:38: at [place] [address] bedtime. Medical Branch mesalamine 2020-0 Yes 1.5g Take 1.5 g U nivers 0.375 gram 7-14 by mouth ity o f 24 hr 09:38: daily. [place] capsule 49 Medical Branch mirtazapine 2020-0 Yes 15mg Take 15 mg Univers 15 mg 7-14 by mouth ity of tablet 09:38: at [place] [address] bedtime. Medical Branch mesalamine 2020-0 Yes 1.5g Take 1.5 g U nivers 0.375 gram 7-14 by mouth ity o f 24 hr 09:38: daily. [facility] 49 Medical Branch mirtazapine 2020-0 Yes 15mg Take 15 mg Univers 15 mg 7-14 by mouth ity of tablet 09:38: at [place] [address] bedtime. Medical Branch mesalamine 2020-0 Yes 1.5g Take 1.5 g U nivers 0.375 gram 7-14 by mouth ity o f 24 hr 09:38: daily. [facility] 49 Medical Branch mirtazapine 2020-0 Yes 15mg Take 15 mg Univers 15 mg 7-14 by mouth ity of tablet 09:38: at [place] [address] bedtime. Medical Branch mesalamine 2020-0 Yes 1.5g Take 1.5 g U nivers 0.375 gram 7-14 by mouth ity o f 24 hr 09:38: daily. [facility] 49 Medical Branch mirtazapine 2020-0 Yes 15mg Take 15 mg Univers 15 mg 7-14 by mouth ity of tablet 09:38: at [place] [address] bedtime. Medical Branch mesalamine 2020-0 Yes 1.5g Take 1.5 g U nivers 0.375 gram 7-14 by mouth ity o f 24 hr 09:38: daily. [facility] 49 Medical Branch mirtazapine 2020-0 Yes 15mg Take 15 mg Univers 15 mg 7-14 by mouth ity of tablet 09:38: at [place] [address] bedtime. Medical Branch mesalamine 2020-0 Yes 1.5g Take 1.5 g U nivers 0.375 gram 7-14 by mouth ity o f 24 hr 09:38: daily. [facility] 49 Medical Branch mirtazapine 2020-0 Yes 15mg Take 15 mg [facility] 15 mg 7-14 by mouth ity of tablet 09:38: at [place] [address] bedtime. Medical [place] mesalamine 0 Yes 1.5g Take 1.5 g U nivers 0.375 gram 7-14 by mouth ity o f 24 hr 09:38: daily. [facility] 49 [facility] mirtazapine 0 Yes 15mg Take 15 mg Univers 15 mg 7-14 by mouth ity of tablet 09:38: at [place] [address] bedtime. [facility] mesalamine 0 Yes 1.5g Take 1.5 g U nivers 0.375 gram 7-14 by mouth ity o f 24 hr 09:38: daily. [facility] 49 [facility] mirtazapine 0 Yes 15mg Take 15 mg Univers 15 mg 7-14 by mouth ity of tablet 09:38: at [place] [address] bedtime. [facility] mesalamine Yes 1.5g Take 1.5 g U nivers 0.375 gram 7-14 by mouth ity o f 24 hr 09:38: daily. [address] predniSONE 0 Yes prednisone [place] (DELTASONE) 6-22 10 mg [facility] 10 MG 00:00: tablet of tablet 00 TAKE 1 Medicin TABLET BY e MOUTH EVERY DAY predniSONE 0 Yes prednisone [place] (DELTASONE) 6-22 10 mg [facility] 10 MG 00:00: tablet of tablet 00 TAKE 1 Medicin TABLET BY e MOUTH EVERY DAY predniSONE 0 Yes prednisone [place] (DELTASONE) 6-22 10 mg [facility] 10 MG 00:00: tablet of tablet 00 TAKE 1 Medicin TABLET BY e MOUTH EVERY DAY predniSONE 0 Yes prednisone [place] (DELTASONE) 6-22 10 mg [facility] 10 MG 00:00: tablet of tablet 00 TAKE 1 Medicin TABLET BY e MOUTH EVERY DAY predniSONE 0 Yes 10mg Take 10 mg U nivers 10 mg 6-22 by mouth ity of tablet 00:00: daily. [address] predniSONE 2020-0 Yes 10mg Take 10 mg U nivers 10 mg 6-22 by mouth ity of tablet 00:00: daily. [address] predniSONE 2020-0 Yes 10mg Take 10 mg U nivers 10 mg 6-22 by mouth ity of tablet 00:00: daily. [address] predniSONE 2021-0 Yes 10mg Take 10 mg U nivers 10 mg 6-22 by mouth ity of tablet 00:00: daily. [place] [facility] Branch predniSONE 2021-0 Yes 10mg Take 10 mg U nivers 10 mg 6-22 by mouth ity of tablet 00:00: daily. [place] [facility] predniSONE 2021-0 Yes 10mg Take 10 mg U nivers 10 mg 6-22 by mouth ity of tablet 00:00: daily. [place] [facility] predniSONE 2021-0 Yes 10mg Take 10 mg U nivers 10 mg 6-22 by mouth ity of tablet 00:00: daily. [place] [facility] predniSONE 2021-0 Yes 10mg Take 10 mg U nivers 10 mg 6-22 by mouth ity of tablet 00:00: daily. [place] [facility] predniSONE 2021-0 Yes 10mg Take 10 mg U nivers 10 mg 6-22 by mouth ity of tablet 00:00: daily. [address] predniSONE 2021-0 Yes 10mg Take 10 mg U nivers 10 mg 6-22 by mouth ity of tablet 00:00: daily. [place] [facility] predniSONE 2021-0 Yes 10mg Take 10 mg U nivers 10 mg 6-22 by mouth ity of tablet 00:00: daily. [place] [facility] predniSONE 2021-0 Yes 10mg Take 10 mg U nivers 10 mg 6-22 by mouth ity of tablet 00:00: daily. [address] predniSONE 2021-0 Yes 10mg Take 10 mg U nivers 10 mg 6-22 by mouth ity of tablet 00:00: daily. [address] predniSONE 2021-0 Yes 10mg Take 10 mg U nivers 10 mg 6-22 by mouth ity of tablet 00:00: daily. [address] predniSONE 2021-0 Yes 10mg Take 10 mg U nivers 10 mg 6-22 by mouth ity of tablet 00:00: daily. [address] predniSONE 2021-0 Yes 10mg Take 10 mg U nivers 10 mg 6-22 by mouth ity of tablet 00:00: daily. [address] predniSONE 2021-0 Yes 10mg Take 10 mg U nivers 10 mg 6-22 by mouth ity of tablet 00:00: daily. [address] predniSONE 2021-0 Yes 10mg Take 10 mg U nivers 10 mg 6-22 by mouth ity of tablet 00:00: daily. [place] [facility] predniSONE 2021-0 Yes 10mg Take 10 mg U nivers 10 mg 6-22 by mouth ity of tablet 00:00: daily. [place] [facility] predniSONE 2021-0 Yes 10mg Take 10 mg U nivers 10 mg 6-22 by mouth ity of tablet 00:00: daily. [place] [facility] predniSONE 2021-0 Yes 10mg Take 10 mg U nivers 10 mg 6-22 by mouth ity of tablet 00:00: daily. [place] [facility] Branch predniSONE 2021-0 Yes 10mg Take 10 mg U nivers 10 mg 6-22 by mouth ity of tablet 00:00: daily. [address] predniSONE 2021-0 Yes 10mg Take 10 mg U nivers 10 mg 6-22 by mouth ity of tablet 00:00: daily. [address] predniSONE 2021-0 Yes 10mg Take 10 mg U nivers 10 mg 6-22 by mouth ity of tablet 00:00: daily. [place] [facility] predniSONE 2021-0 Yes 10mg Take 10 mg U nivers 10 mg 6-22 by mouth ity of tablet 00:00: daily. [address] predniSONE 2021-0 Yes 10mg Take 10 mg U nivers 10 mg 6-22 by mouth ity of tablet 00:00: daily. [address] predniSONE 2021-0 Yes 10mg Take 10 mg U nivers 10 mg 6-22 by mouth ity of tablet 00:00: daily. [address] predniSONE 2021-0 Yes 10mg Take 10 mg U nivers 10 mg 6-22 by mouth ity of tablet 00:00: daily. [address] predniSONE 2021-0 Yes 10mg Take 10 mg U nivers 10 mg 6-22 by mouth ity of tablet 00:00: daily. [address] predniSONE 2021-0 Yes 10mg Take 10 mg U nivers 10 mg 6-22 by mouth ity of tablet 00:00: daily. [address] predniSONE 2021-0 Yes 10mg Take 10 mg U nivers 10 mg 6-22 by mouth ity of tablet 00:00: daily. [address] predniSONE 2021-0 Yes 10mg Take 10 mg U nivers 10 mg 6-22 by mouth ity of tablet 00:00: daily. [place] [facility] predniSONE 2021-0 Yes 10mg Take 10 mg U nivers 10 mg 6-22 by mouth ity of tablet 00:00: daily. [place] [facility] predniSONE 2021-0 Yes 10mg Take 10 mg U nivers 10 mg 6-22 by mouth ity of tablet 00:00: daily. [place] [facility] predniSONE 2021-0 Yes 10mg Take 10 mg U nivers 10 mg 6-22 by mouth ity of tablet 00:00: daily. [place] [facility] predniSONE 2021-0 Yes 10mg Take 10 mg U nivers 10 mg 6-22 by mouth ity of tablet 00:00: daily. [place] [facility] predniSONE 2021-0 Yes 10mg Take 10 mg U nivers 10 mg 6-22 by mouth ity of tablet 00:00: daily. [place] [facility] predniSONE 2021-0 Yes 10mg Take 10 mg U nivers 10 mg 6-22 by mouth ity of tablet 00:00: daily. [place] [facility] predniSONE 2021-0 Yes 10mg Take 10 mg U nivers 10 mg 6-22 by mouth ity of tablet 00:00: daily. [place] [facility] predniSONE 2021-0 Yes 10mg Take 10 mg U nivers 10 mg 6-22 by mouth ity of tablet 00:00: daily. [place] [facility] predniSONE 2021-0 Yes 10mg Take 10 mg U nivers 10 mg 6-22 by mouth ity of tablet 00:00: daily. [place] [facility] predniSONE 2021-0 Yes 10mg Take 10 mg U nivers 10 mg 6-22 by mouth ity of tablet 00:00: daily. [place] [facility] predniSONE 2021-0 Yes 10mg Take 10 mg U nivers 10 mg 6-22 by mouth ity of tablet 00:00: daily. [address] predniSONE 2021-0 Yes 10mg Take 10 mg U nivers 10 mg 6-22 by mouth ity of tablet 00:00: daily. [address] predniSONE 2021-0 Yes 10mg Take 10 mg U nivers 10 mg 6-22 by mouth ity of tablet 00:00: daily. [address] predniSONE 2021-0 Yes 10mg Take 10 mg U nivers 10 mg 6-22 by mouth ity of tablet 00:00: daily. [address] predniSONE 2021-0 Yes 10mg Take 10 mg U nivers 10 mg 6-22 by mouth ity of tablet 00:00: daily. [address] Branch predniSONE 2021-0 Yes 10mg Take 10 mg U nivers 10 mg 6-22 by mouth ity of tablet 00:00: daily. [address] predniSONE 2021-0 Yes 10mg Take 10 mg U nivers 10 mg 6-22 by mouth ity of tablet 00:00: daily. [address] Branch spironolact 2021-0 Yes 25mg Take 25 mg [place] one 6-08 by mouth. [place] (ALDACTONE) 00:00: of 25 MG 00 Medicin tablet e spironolact 2020-0 Yes 25mg Take 25 mg [facility] one 6-08 by mouth. [place] (ALDACTONE) 00:00: of 25 MG 00 Medicin tablet e spironolact 1-0 Yes 25mg Take 25 mg [facility] one 6-08 by mouth. [place] (ALDACTONE) 00:00: of 25 MG 00 Medicin tablet e spironolact 2020-0 Yes 25mg Take 25 mg [facility] one 25 mg 6-08 by mouth ity of tablet 00:00: daily. [address] spironolact 2020-0 Yes 25mg Take 25 mg [facility] one 25 mg 6-08 by mouth ity of tablet 00:00: daily. [address] spironolact 1-0 Yes 25mg Take 25 mg [facility] one 25 mg 6-08 by mouth ity of tablet 00:00: daily. [address] spironolact 2021-0 Yes 25mg Take 25 mg [facility] one 25 mg 6-08 by mouth ity of tablet 00:00: daily. [address] spironolact 2021-0 Yes 25mg Take 25 mg [facility] one 25 mg 6-08 by mouth ity of tablet 00:00: daily. [address] spironolact 2021-0 Yes 25mg Take 25 mg [facility] one 25 mg 6-08 by mouth ity of tablet 00:00: daily. [address] spironolact 2021-0 Yes 25mg Take 25 mg [facility] one 25 mg 6-08 by mouth ity of tablet 00:00: daily. [address] spironolact 2021-0 Yes 25mg Take 25 mg [facility] one 25 mg 6-08 by mouth ity of tablet 00:00: daily. [facility] spironolact 2020-0 Yes 25mg Take 25 mg [facility] one 25 mg 6-08 by mouth ity of tablet 00:00: daily. [facility] spironolact 2020-0 Yes 25mg Take 25 mg [facility] one 25 mg 6-08 by mouth ity of tablet 00:00: daily. [facility] spironolact 2020-0 Yes 25mg Take 25 mg [facility] one 25 mg 6-08 by mouth ity of tablet 00:00: daily. [place] [facility] spironolact 2020-0 Yes 25mg Take 25 mg [facility] one 25 mg 6-08 by mouth ity of tablet 00:00: daily. [place] [facility] spironolact 2020-0 Yes 25mg Take 25 mg [facility] one 25 mg 6-08 by mouth ity of tablet 00:00: daily. [place] [facility] spironolact 2020-0 Yes 25mg Take 25 mg [facility] one 25 mg 6-08 by mouth ity of tablet 00:00: daily. [facility] spironolact 2020-0 Yes 25mg Take 25 mg [facility] one 25 mg 6-08 by mouth ity of tablet 00:00: daily. [place] [facility] spironolact 2020-0 Yes 25mg Take 25 mg [facility] one 25 mg 6-08 by mouth ity of tablet 00:00: daily. [place] [facility] spironolact 2020-0 Yes 25mg Take 25 mg [facility] one 25 mg 6-08 by mouth ity of tablet 00:00: daily. [place] [facility] spironolact 2020-0 Yes 25mg Take 25 mg [facility] one 25 mg 6-08 by mouth ity of tablet 00:00: daily. [place] [facility] spironolact 2020-0 Yes 25mg Take 25 mg [facility] one 25 mg 6-08 by mouth ity of tablet 00:00: daily. [place] [facility] spironolact 1-0 Yes 25mg Take 25 mg [facility] one 25 mg 6-08 by mouth ity of tablet 00:00: daily. [place] [facility] spironolact 2020-0 Yes 25mg Take 25 mg [facility] one 25 mg 6-08 by mouth ity of tablet 00:00: daily. [place] [facility] spironolact 2020-0 Yes 25mg Take 25 mg [facility] one 25 mg 6-08 by mouth ity of tablet 00:00: daily. [place] [facility] spironolact 2020-0 Yes 25mg Take 25 mg [facility] one 25 mg 6-08 by mouth ity of tablet 00:00: daily. [place] [facility] spironolact 2020-0 Yes 25mg Take 25 mg [facility] one 25 mg 6-08 by mouth ity of tablet 00:00: daily. [place] [facility] spironolact 2020-0 Yes 25mg Take 25 mg [facility] one 25 mg 6-08 by mouth ity of tablet 00:00: daily. [place] [facility] spironolact 2020-0 Yes 25mg Take 25 mg [facility] one 25 mg 6-08 by mouth ity of tablet 00:00: daily. [place] [facility] spironolact 2020-0 Yes 25mg Take 25 mg [facility] one 25 mg 6-08 by mouth ity of tablet 00:00: daily. [place] [facility] spironolact 2020-0 Yes 25mg Take 25 mg [facility] one 25 mg 6-08 by mouth ity of tablet 00:00: daily. [place] [facility] spironolact 2020-0 Yes 25mg Take 25 mg [facility] one 25 mg 6-08 by mouth ity of tablet 00:00: daily. [place] [facility] spironolact 2020-0 Yes 25mg Take 25 mg [facility] one 25 mg 6-08 by mouth ity of tablet 00:00: daily. [place] [facility] spironolact 2020-0 Yes 25mg Take 25 mg [facility] one 25 mg 6-08 by mouth ity of tablet 00:00: daily. [place] [facility] spironolact 2020-0 Yes 25mg Take 25 mg [facility] one 25 mg 6-08 by mouth ity of tablet 00:00: daily. [place] [facility] spironolact 2020-0 Yes 25mg Take 25 mg [facility] one 25 mg 6-08 by mouth ity of tablet 00:00: daily. [place] [facility] spironolact 2020-0 Yes 25mg Take 25 mg [facility] one 25 mg 6-08 by mouth ity of tablet 00:00: daily. [place] [facility] spironolact 2020-0 Yes 25mg Take 25 mg [facility] one 25 mg 6-08 by mouth ity of tablet 00:00: daily. [place] [facility] spironolact 2020-0 Yes 25mg Take 25 mg [facility] one 25 mg 6-08 by mouth ity of tablet 00:00: daily. [place] [facility] spironolact 2020-0 Yes 25mg Take 25 mg [facility] one 25 mg 6-08 by mouth ity of tablet 00:00: daily. [place] [facility] spironolact 2020-0 Yes 25mg Take 25 mg [facility] one 25 mg 6-08 by mouth ity of tablet 00:00: daily. [place] [facility] spironolact 2020-0 Yes 25mg Take 25 mg [facility] one 25 mg 6-08 by mouth ity of tablet 00:00: daily. [place] [facility] spironolact 2020-0 Yes 25mg Take 25 mg [facility] one 25 mg 6-08 by mouth ity of tablet 00:00: daily. [place] [facility] spironolact 2020-0 Yes 25mg Take 25 mg [facility] one 25 mg 6-08 by mouth ity of tablet 00:00: daily. [place] [facility] spironolact 2020-0 Yes 25mg Take 25 mg [facility] one 25 mg 6-08 by mouth ity of tablet 00:00: daily. [place] [facility] spironolact 2020-0 Yes 25mg Take 25 mg [facility] one 25 mg 6-08 by mouth ity of tablet 00:00: daily. [place] [facility] spironolact 2020-0 Yes 25mg Take 25 mg [facility] one 25 mg 6-08 by mouth ity of tablet 00:00: daily. [place] [facility] spironolact 2020-0 Yes 25mg Take 25 mg [facility] one 25 mg 6-08 by mouth ity of tablet 00:00: daily. [place] [facility] spironolact 2020-0 Yes 25mg Take 25 mg [facility] one 25 mg 6-08 by mouth ity of tablet 00:00: daily. [place] [facility] spironolact 2020-0 Yes 25mg Take 25 mg [facility] one 25 mg 6-08 by mouth ity of tablet 00:00: daily. [address] spironolact 2020-0 Yes 25mg Take 25 mg [facility] one 25 mg 6-08 by mouth ity of tablet 00:00: daily. [address] spironolact 1-0 Yes 25mg Take 25 mg [facility] one 25 mg 6-08 by mouth ity of tablet 00:00: daily. [address] Neomycin-Po 2020-0 Yes 3[drp] Place 3 [facility] lymyxin-HC 4-14 Drops in Colle ge [id number] 00:00: ear(s). of SUSP 00 Medicin e Neomycin-Po 2020-0 Yes 3[drp] Place 3 [facility] [place] lymyxin-HC 4-14 Drops in Colle ge [id number] 00:00: ear(s). of SUSP 00 Medicin e Neomycin-Po 202-0 Yes 3[drp] Place 3 [facility] [place] lymyxin-HC 4-14 Drops in Colle ge [id number] 00:00: ear(s). of SUSP 00 Medicin e neomycin-po 202-0 Yes [id number] 3[drp] Place 3 [facility] lymyxin-hyd 4-14 Drops in ity of rocortisone 00:00: left ear 4 [place] 3.5-,000- 00 (four) Medica l 1 times Branch mg/mL-unit/ daily. mL-% otic susp neomycin-po 2021-0 Yes [id number] 3[drp] Place 3 [facility] lymyxin-hyd 4-14 Drops in ity of rocortisone 00:00: left ear 4 [place] 3.5-,000- 00 (four) Medica l 1 times Branch mg/mL-unit/ daily. mL-% otic susp neomycin-po 2021-0 Yes [id number] 3[drp] Place 3 [facility] lymyxin-hyd 4-14 Drops in ity of rocortisone 00:00: left ear 4 [place] 3.5-10,000- 00 (four) Medica l 1 times Branch mg/mL-unit/ daily. mL-% otic susp neomycin-po 2021-0 Yes [id number] 3[drp] Place 3 [facility] lymyxin-hyd 4-14 Drops in ity of rocortisone 00:00: left ear 4 [place] 3.5-10,000- 00 (four) Medica l 1 times Branch mg/mL-unit/ daily. mL-% otic susp neomycin-po 2021-0 Yes [id number] 3[drp] Place 3 [facility] lymyxin-hyd 4-14 Drops in ity of rocortisone 00:00: left ear 4 [place] 3.5-10,000- 00 (four) Medica l 1 times Branch mg/mL-unit/ daily. mL-% otic susp neomycin-po 2021-0 Yes [id number] 3[drp] Place 3 [facility] lymyxin-hyd 4-14 Drops in ity of rocortisone 00:00: left ear 4 [place] 3.5-10,000- 00 (four) Medica l 1 times Branch mg/mL-unit/ daily. mL-% otic susp neomycin-po 2021-0 Yes [id number] 3[drp] Place 3 [facility] lymyxin-hyd 4-14 Drops in ity of rocortisone 00:00: left ear 4 [place] 3.5-10000- (four) Medica l 1 times Branch mg/mL-unit/ daily. mL-% otic susp neomycin-po 2021-0 Yes [id number] 3[drp] Place 3 [facility] lymyxin-hyd 4-14 Drops in ity of rocortisone 00:00: left ear 4 [place] 3.5-000 00 (four) Medica l 1 times Branch mg/mL-unit/ daily. mL-% otic susp neomycin-po 2021-0 Yes [id number] 3[drp] Place 3 [facility] lymyxin-hyd 4-14 Drops in ity of rocortisone 00:00: left ear 4 [place] 3.5-000 (four) Medica l 1 times Branch mg/mL-unit/ daily. mL-% otic susp neomycin-po 2021-0 Yes [id number] 3[drp] Place 3 [facility] lymyxin-hyd 4-14 Drops in ity of rocortisone 00:00: left ear 4 [place] 3.5-,000- 00 (four) Medica l 1 times Branch mg/mL-unit/ daily. mL-% otic susp neomycin-po 2021-0 Yes [id number] 3[drp] Place 3 [facility] lymyxin-hyd 4-14 Drops in ity of rocortisone 00:00: left ear 4 [place] 3.5-000- 00 (four) Medica l 1 times Branch mg/mL-unit/ daily. mL-% otic susp neomycin-po 2021-0 Yes [id number] 3[drp] Place 3 [facility] lymyxin-hyd 4-14 Drops in ity of rocortisone 00:00: left ear 4 [place] 3.5-10,000- 00 (four) Medica l 1 times Branch mg/mL-unit/ daily. mL-% otic susp neomycin-po 2021-0 Yes [id number] 3[drp] Place 3 [facility] lymyxin-hyd 4-14 Drops in ity of rocortisone 00:00: left ear 4 [place] 3.5-10000- (four) Medica l 1 times Branch mg/mL-unit/ daily. mL-% otic susp neomycin-po 2021-0 Yes [id number] 3[drp] Place 3 [facility] lymyxin-hyd 4-14 Drops in ity of rocortisone 00:00: left ear 4 [place] 3.5-000 (four) Medica l 1 times Branch mg/mL-unit/ daily. mL-% otic susp neomycin-po 2021-0 Yes [id number] 3[drp] Place 3 [facility] lymyxin-hyd 4-14 Drops in ity of rocortisone 00:00: left ear 4 [place] 3.5-000 (four) Medica l 1 times Branch mg/mL-unit/ daily. mL-% otic susp neomycin-po 2021-0 Yes [id number] 3[drp] Place 3 [facility] lymyxin-hyd 4-14 Drops in ity of rocortisone 00:00: left ear 4 [place] 3.5-000 (four) Medica l 1 times Branch mg/mL-unit/ daily. mL-% otic susp neomycin-po 2021-0 Yes [id number] 3[drp] Place 3 [facility] lymyxin-hyd 4-14 Drops in ity of rocortisone 00:00: left ear 4 [place] 3.5-10,000 (four) Medica l 1 times Branch mg/mL-unit/ daily. mL-% otic susp neomycin-po 2021-0 Yes [id number] 3[drp] Place 3 [facility] lymyxin-hyd 4-14 Drops in ity of rocortisone 00:00: left ear 4 [place] 3.5-10,000- 00 (four) Medica l 1 times Branch mg/mL-unit/ daily. mL-% otic susp neomycin-po 2021-0 Yes [id number] 3[drp] Place 3 [facility] lymyxin-hyd 4-14 Drops in ity of rocortisone 00:00: left ear 4 [place] 3.5-,000- 00 (four) Medica l 1 times Branch mg/mL-unit/ daily. mL-% otic susp neomycin-po 2021-0 Yes [id number] 3[drp] Place 3 [facility] lymyxin-hyd 4-14 Drops in ity of rocortisone 00:00: left ear 4 [place] 3.5-000 (four) Medica l 1 times Branch mg/mL-unit/ daily. mL-% otic susp neomycin-po 2021-0 Yes [id number] 3[drp] Place 3 [facility] lymyxin-hyd 4-14 Drops in ity of rocortisone 00:00: left ear 4 [place] 3.5- (four) Medica l 1 times Branch mg/mL-unit/ daily. mL-% otic susp neomycin-po 2021-0 Yes [id number] 3[drp] Place 3 [facility] lymyxin-hyd 4-14 Drops in ity of rocortisone 00:00: left ear 4 [place] 3.5-,000 (four) Medica l 1 times Branch mg/mL-unit/ daily. mL-% otic susp neomycin-po 2021-0 Yes [id number] 3[drp] Place 3 [facility] lymyxin-hyd 4-14 Drops in ity of rocortisone 00:00: left ear 4 [place] 3.5-10,000 00 (four) Medica l 1 times Branch mg/mL-unit/ daily. mL-% otic susp neomycin-po 2021-0 Yes [id number] 3[drp] Place 3 [facility] lymyxin-hyd 4-14 Drops in ity of rocortisone 00:00: left ear 4 [place] 3.5-10,000- (four) Medica l 1 times Branch mg/mL-unit/ daily. mL-% otic susp neomycin-po 2021-0 Yes [id number] 3[drp] Place 3 [facility] lymyxin-hyd 4-14 Drops in ity of rocortisone 00:00: left ear 4 [place] 3.5-10,000- 00 (four) Medica l 1 times Branch mg/mL-unit/ daily. mL-% otic susp neomycin-po 2021-0 Yes [id number] 3[drp] Place 3 [facility] lymyxin-hyd 4-14 Drops in ity of rocortisone 00:00: left ear 4 [place] 3.5-10,000- 00 (four) Medica l 1 times Branch mg/mL-unit/ daily. mL-% otic susp neomycin-po 2021-0 Yes [id number] 3[drp] Place 3 [facility] lymyxin-hyd 4-14 Drops in ity of rocortisone 00:00: left ear 4 [place] 3.5-10,000- 00 (four) Medica l 1 times Branch mg/mL-unit/ daily. mL-% otic susp neomycin-po 2021-0 Yes [id number] 3[drp] Place 3 [facility] lymyxin-hyd 4-14 Drops in ity of rocortisone 00:00: left ear 4 [place] 3.5-10,000- 00 (four) Medica l 1 times Branch mg/mL-unit/ daily. mL-% otic susp neomycin-po 2021-0 Yes [id number] 3[drp] Place 3 [facility] lymyxin-hyd 4-14 Drops in ity of rocortisone 00:00: left ear 4 [place] 3.5-10,000- 00 (four) Medica l 1 times Branch mg/mL-unit/ daily. mL-% otic susp neomycin-po 2021-0 Yes [id number] 3[drp] Place 3 [facility] lymyxin-hyd 4-14 Drops in ity of rocortisone 00:00: left ear 4 [place] 3.5-10,000- 00 (four) Medica l 1 times Branch mg/mL-unit/ daily. mL-% otic susp neomycin-po 2021-0 Yes [id number] 3[drp] Place 3 [facility] lymyxin-hyd 4-14 Drops in ity of rocortisone 00:00: left ear 4 [place] 3.5-10,000- 00 (four) Medica l 1 times Branch mg/mL-unit/ daily. mL-% otic susp neomycin-po 2021-0 Yes [id number] 3[drp] Place 3 [facility] lymyxin-hyd 4-14 Drops in ity of rocortisone 00:00: left ear 4 [place] 3.5-,000- 00 (four) Medica l 1 times Branch mg/mL-unit/ daily. mL-% otic susp neomycin-po 2021-0 Yes [id number] 3[drp] Place 3 [facility] lymyxin-hyd 4-14 Drops in ity of rocortisone 00:00: left ear 4 [place] 3.5-,000- 00 (four) Medica l 1 times Branch mg/mL-unit/ daily. mL-% otic susp neomycin-po 2021-0 Yes [id number] 3[drp] Place 3 [facility] lymyxin-hyd 4-14 Drops in ity of rocortisone 00:00: left ear 4 [place] 3.5-000- 00 (four) Medica l 1 times Branch mg/mL-unit/ daily. mL-% otic susp neomycin-po 2021-0 Yes [id number] 3[drp] Place 3 [facility] lymyxin-hyd 4-14 Drops in ity of rocortisone 00:00: left ear 4 [place] 3.5-000- 00 (four) Medica l 1 times Branch mg/mL-unit/ daily. mL-% otic susp neomycin-po 2021-0 Yes [id number] 3[drp] Place 3 [facility] lymyxin-hyd 4-14 Drops in ity of rocortisone 00:00: left ear 4 [place] 3.5-000- 00 (four) Medica l 1 times Branch mg/mL-unit/ daily. mL-% otic susp neomycin-po 2021-0 Yes [id number] 3[drp] Place 3 [facility] lymyxin-hyd 4-14 Drops in ity of rocortisone 00:00: left ear 4 [place] 3.5-,000- 00 (four) Medica l 1 times Branch mg/mL-unit/ daily. mL-% otic susp neomycin-po 2021-0 2022- No [id number] 3[drp] Place 3 [facility] lymyxin-hyd 4-14 12-21 Drops in ity of rocortisone 00:00: 00:00 left ear 4 [place] 3.5-10000- 00 :00 (four) Medica l 1 times Branch mg/mL-unit/ daily. mL-% otic susp neomycin-po 2021- No [id number] 3[drp] [facility] Drops in ity of rocortisone 00:00: 00:00 left ear 4 [place] 3.5-10,000- 00 :00 (four) Medica l 1 times Branch mg/mL-unit/ daily. mL-% otic susp TRELEGY 2019-11 Yes INHALE 1 Univer s [...] mcg DsDv 00 EVERY DAY Medica l [place] TRELEGY 2019- Yes INHALE 1 Univer s [...] mcg DsDv 00 EVERY DAY [facility] [place] TRELEGY 2019- Yes INHALE 1 Univer s ELLIPTA 2-24 PUFF BY ity of 100-62.5-25 00:00: MOUTH [place] mcg DsDv 00 EVERY [facility] INHALE 1 Univer s ELLIPTA 2-24 PUFF BY ity of 100-62.5-25 00:00: MOUTH [place] mcg DsDv 00 EVERY DAY Medica [facility] [place] TRELEGY 2019- Yes INHALE 1 Univer s ELLIPTA 2-24 PUFF BY ity of 100-62.5-25 00:00: MOUTH [place] mcg DsDv 00 EVERY DAY [facility] Yes INHALE 1 Univer s ELLIPTA 2-24 PUFF BY ity of 100-62.5-25 00:00: MOUTH [place] mcg DsDv 00 EVERY DAY [facility]- Yes INHALE 1 Univer s ELLIPTA 2-24 PUFF BY ity of 100-62.5-25 00:00: MOUTH [place] mcg DsDv 00 EVERY DAY [facility]- Yes INHALE 1 Univer s ELLIPTA 2-24 PUFF BY ity of 100-62.5-25 00:00: MOUTH [place] mcg DsDv 00 EVERY DAY [facility]- Yes INHALE 1 Univer s ELLIPTA 2-24 PUFF BY ity of 100-62.5-25 00:00: MOUTH [place] mcg DsDv 00 EVERY DAY Medica l [place] TRELEGY 2019- Yes INHALE 1 Univer s ELLIPTA 2-24 PUFF BY ity of 100-62.5-25 00:00: MOUTH [place] mcg DsDv 00 EVERY DAY Medica l [place] TRELEGY 2019- Yes INHALE 1 Univer s ELLIPTA 2-24 PUFF BY ity of 100-62.5-25 00:00: MOUTH [place] mcg DsDv 00 EVERY DAY Medica l [place] TRELEGY 2020- Yes INHALE 1 Univer s [...] nebulizer 00:00: [place] solution [facility] ipratropium 2020 Yes Univer s 0.02 % 2-23 ity of nebulizer 00:00: [place] solution [facility] ipratropium 2019- Yes Univer s 0.02 % 2-23 ity of nebulizer 00:00: [place] solution [facility] ipratropium 2020 Yes Univer s 0.02 % 2-23 ity of nebulizer 00:00: [place] solution [facility] ipratropium 2019-11 Yes Univer s 0.02 % 2-23 ity of nebulizer 00:00: [place] solution [facility] ipratropium 2020 Yes Univer s 0.02 % 2-23 ity of nebulizer 00:00: [place] solution [facility] ipratropium 2019-11 Yes Univer s 0.02 % 2-23 ity of nebulizer 00:00: [place] solution [facility] ipratropium 2020- Yes Univer s 0.02 % 2-23 ity of nebulizer 00:00: [place] solution [facility] ipratropium 2020 Yes Univer s 0.02 % 2-23 ity of nebulizer 00:00: [place] solution [facility] ipratropium 2020- Yes Univer s 0.02 % 2-23 ity of nebulizer 00:00: [place] solution [facility] ipratropium 2019-11 Yes Univer s 0.02 % 2-23 ity of nebulizer 00:00: [place] solution [facility] ipratropium 2020- Yes Univer s 0.02 % 2-23 ity of nebulizer 00:00: [place] solution [facility] ipratropium 2020 Yes Univer s 0.02 % 2-23 ity of nebulizer 00:00: [place] solution [facility] zolpidem 10 2019- Yes 10mg [...] by mouth ity of 00:00: at bedtime [place] 00 as needed. Medical Branch zolpidem 10 [...] [place] 00 as needed. Medical Branch dicyclomine 2019-11 Yes TK 1 C PO [...] 00 AND THEN Q Medical 8 [facility] Branch ABDOMINAL PAIN. MOTEGRITY 2019- Yes TK 1 T PO Uni vers tablet 1-12 D ity of 00:00: [place] 00 Medical Branch MOTEGRITY 2020- Yes TK 1 T PO Uni vers tablet 1-12 D ity of 00:00: [place] [facility] MOTEGRITY 2020- Yes TK 1 T PO Uni vers tablet 1-12 D ity of 00:00: [place] [facility] MOTEGRITY 2019- Yes TK 1 T PO Uni vers tablet 1-12 D ity of 00:00: [place] [facility] MOTEGRITY 2019- Yes TK 1 T PO Uni vers tablet 1-12 D ity of 00:00: [place] 00 Medical Branch MOTEGRITY 2019- Yes TK 1 T PO Uni vers tablet 1-12 D ity of 00:00: [place] [facility] MOTEGRITY 2020- Yes TK 1 T PO Uni vers tablet 1-12 D ity of 00:00: [place] 00 Medical Branch MOTEGRITY 2020- Yes TK 1 T PO Uni vers tablet 1-12 D ity of 00:00: [place] 00 Medical Branch MOTEGRITY 2020- Yes TK 1 T PO Uni vers tablet 1-12 D ity of 00:00: [place] 00 Medical Branch MOTEGRITY 2020- Yes TK 1 T PO Uni vers tablet 1-12 D ity of 00:00: [place] 00 Medical Branch MOTEGRITY 2020- Yes TK 1 T PO Uni vers tablet 1-12 D ity of 00:00: [place] 00 Medical Branch MOTEGRITY 2020- Yes TK 1 T PO Uni vers tablet 1-12 D ity of 00:00: [place] 00 Medical Branch MOTEGRITY 2020- Yes TK 1 T PO Uni vers tablet 1-12 D ity of 00:00: [place] 00 Medical Branch MOTEGRITY 2020- Yes TK 1 T PO Uni vers tablet 1-12 D ity of 00:00: [place] 00 Medical Branch MOTEGRITY 2020- Yes TK 1 T PO Uni vers tablet 1-12 D ity of 00:00: [place] 00 Medical Branch MOTEGRITY 2020- Yes TK 1 T PO Uni vers tablet 1-12 D ity of 00:00: [place] 00 Medical Branch MOTEGRITY 2020- Yes TK 1 T PO Uni vers tablet 1-12 D ity of 00:00: [place] 00 [facility] MOTEGRITY 2020- Yes TK 1 T PO Uni vers tablet 1-12 D ity of 00:00: [place] [facility] MOTEGRITY 2020- Yes TK 1 T PO Uni vers tablet 1-12 D ity of 00:00: [place] [facility] MOTEGRITY 2020- Yes TK 1 T PO Uni vers tablet 1-12 D ity of 00:00: [place] [facility] MOTEGRITY 2020- Yes TK 1 T PO Uni vers tablet 1-12 D ity of 00:00: [place] 00 [facility] MOTEGRITY 2020- Yes TK 1 T PO Uni vers tablet 1-12 D ity of 00:00: [place] 00 [facility] MOTEGRITY 2020- Yes TK 1 T PO Uni vers tablet 1-12 D ity of 00:00: [place] [facility] MOTEGRITY 2020- Yes TK 1 T PO Uni vers tablet 1-12 D ity of 00:00: [place] 00 [facility] MOTEGRITY 2020- Yes TK 1 T PO Uni vers tablet 1-12 D ity of 00:00: [place] 00 [facility] MOTEGRITY 2020- Yes TK 1 T PO Uni vers tablet 1-12 D ity of 00:00: [place] 00 [facility] MOTEGRITY 2020- Yes TK 1 T PO Uni vers tablet 1-12 D ity of 00:00: [place] [facility] MOTEGRITY 2020- Yes TK 1 T PO Uni vers tablet 1-12 D ity of 00:00: [place] 00 [facility] MOTEGRITY 2020- Yes TK 1 T PO Uni vers tablet 1-12 D ity of 00:00: [place] 00 [facility] MOTEGRITY 2020- Yes TK 1 T PO Uni vers tablet 1-12 D ity of 00:00: [place] 00 [facility] MOTEGRITY 2020- Yes TK 1 T PO Uni vers tablet 1-12 D ity of 00:00: [place] 00 [facility] MOTEGRITY 2020- Yes TK 1 T PO Uni vers tablet 1-12 D ity of 00:00: [place] 00 [facility] MOTEGRITY 2020- Yes TK 1 T PO Uni vers tablet 1-12 D ity of 00:00: [place] 00 [facility] MOTEGRITY 2020- Yes TK 1 T PO Uni vers tablet 1-12 D ity of 00:00: [place] [facility] MOTEGRITY 2020- Yes TK 1 T PO Uni vers tablet 1-12 D ity of 00:00: [place] [facility] MOTEGRITY 2020- Yes TK 1 T PO Uni vers tablet 1-12 D ity of 00:00: [place] [facility] MOTEGRITY 2020- Yes TK 1 T PO Uni vers tablet 1-12 D ity of 00:00: [place] [facility] MOTEGRITY 2020- Yes TK 1 T PO Uni vers tablet 1-12 D ity of 00:00: [place] [facility] MOTEGRITY 2020- Yes TK 1 T PO Uni vers tablet 1-12 D ity of 00:00: [place] [facility] MOTEGRITY 2020- Yes TK 1 T PO Uni vers tablet 1-12 D ity of 00:00: [place] [facility] MOTEGRITY 2020- Yes TK 1 T PO Uni vers tablet 1-12 D ity of 00:00: [place] [facility] MOTEGRITY 2020- Yes TK 1 T PO Uni vers tablet 1-12 D ity of 00:00: [place] 00 [facility] MOTEGRITY 2020- Yes TK 1 T PO Uni vers tablet 1-12 D ity of 00:00: [place] 00 [facility] MOTEGRITY 2020- Yes TK 1 T PO Uni vers tablet 1-12 D ity of 00:00: [place] [facility] MOTEGRITY 2020- Yes TK 1 T PO Uni vers tablet 1-12 D ity of 00:00: [place] 00 [facility] MOTEGRITY 2020- Yes TK 1 T PO Uni vers tablet 1-12 D ity of 00:00: [place] 00 [facility] MOTEGRITY 2020- Yes TK 1 T PO Uni vers tablet 1-12 D ity of 00:00: [place] 00 [facility] MOTEGRITY 2020- Yes TK 1 T PO Uni vers tablet 1-12 D ity of 00:00: [place] 00 [facility] MOTEGRITY 2020- Yes TK 1 T PO [...] 4 mg tablet 1-04 ity of 00:00: [facility] ondansetron 2020-1 Yes as needed. [facility] 4 mg tablet 1-04 ity of 00:00: [facility] ondansetron 2020-1 Yes as needed. [facility] 4 mg tablet 1-04 ity of 00:00: [facility] ondansetron 2020-1 Yes as needed. [facility] 4 mg tablet 1-04 ity of 00:00: [facility] ondansetron 2020-1 Yes as needed. [facility] 4 mg tablet 1-04 ity of 00:00: [facility] ondansetron 2020-1 Yes as needed. Univers 4 mg tablet 1-04 ity of 00:00: [place] 00 [facility] ondansetron 2020-1 Yes as needed. Univers 4 mg tablet 1-04 ity of 00:00: [place] 00 Medical Branch diclofenac 2020-1 Yes [id number] 75mg Take 1 Univers 75 mg EC 0-08 tablet by ity of tablet 00:00: mouth 2 [place] (two) Medical times Branch daily with meals. diclofenac 2020- Yes [id number] 75mg Take 1 [facility] 75 mg EC 0-08 tablet by ity of tablet 00:00: mouth (two) Medical times Branch daily with meals. diclofenac 2020- Yes [id number] 75mg Take 1 [facility] 75 mg EC 0-08 tablet by ity of tablet 00:00: mouth (two) Medical times Branch daily with meals. diclofenac 2020-1 Yes [id number] 75mg Take 1 [facility] 75 mg EC 0-08 tablet by ity of tablet 00:00: mouth (two) Medical times Branch daily with meals. diclofenac 2020-1 Yes [id number] 75mg Take 1 [facility] 75 mg EC 0-08 tablet by ity of tablet 00:00: mouth (two) Medical times Branch daily with meals. diclofenac 2020- Yes [id number] 75mg Take 1 [facility] 75 mg EC 0-08 tablet by ity of tablet 00:00: mouth (two) Medical times Branch daily with meals. diclofenac 2019- Yes [id number] 75mg Take 1 [facility] 75 mg EC 0-08 tablet by ity of tablet 00:00: mouth (two) Medical times Branch daily with meals. diclofenac 2020- Yes [id number] 75mg Take 1 [facility] 75 mg EC 0-08 tablet by ity of tablet 00:00: mouth (two) Medical times Branch daily with meals. diclofenac 2020-1 Yes [id number] 75mg Take 1 [facility] 75 mg EC 0-08 tablet by ity of tablet 00:00: mouth (two) Medical times Branch daily with meals. diclofenac 2019-1 Yes [id number] 75mg Take 1 [facility] 75 mg EC 0-08 tablet by ity of tablet 00:00: mouth (two) Medical times Branch daily with meals. diclofenac 2020-1 Yes [id number] 75mg Take 1 [facility] 75 mg EC 0-08 tablet by ity of tablet 00:00: mouth (two) Medical times Branch daily with meals. diclofenac 2020-1 Yes [id number] 75mg Take 1 [facility] 75 mg EC 0-08 tablet by ity of tablet 00:00: mouth [place] (two) Medical times Branch daily with meals. diclofenac 2020-1 Yes [id number] 75mg Take 1 [facility] 75 mg EC 0-08 tablet by ity of tablet 00:00: mouth [place] (two) Medical times Branch daily with meals. diclofenac 2020-1 Yes [id number] 75mg Take 1 [facility] 75 mg EC 0-08 tablet by ity of tablet 00:00: mouth [place] (two) Medical times Branch daily with meals. diclofenac 2019-11 Yes [id number] 75mg Take 1 [facility] 75 mg EC 0-08 tablet by ity of tablet 00:00: mouth [place] (two) Medical times Branch daily with meals. diclofenac 2019-11 Yes [id number] 75mg Take 1 [facility] 75 mg EC 0-08 tablet by ity of tablet 00:00: mouth [place] (two) Medical times Branch daily with meals. diclofenac 2019-11 Yes [id number] 75mg Take 1 [facility] 75 mg EC 0-08 tablet by ity of tablet 00:00: mouth [place] (two) Medical times Branch daily with meals. diclofenac 2019-11 Yes [id number] 75mg Take 1 [facility] 75 mg EC 0-08 tablet by ity of tablet 00:00: mouth [place] (two) Medical times Branch daily with meals. diclofenac 2019-11 Yes [id number] 75mg Take 1 [facility] 75 mg EC 0-08 tablet by ity of tablet 00:00: mouth [place] (two) Medical times Branch daily with meals. diclofenac 2019-11 Yes [id number] 75mg Take 1 [facility] 75 mg EC 0-08 tablet by ity of tablet 00:00: mouth [place] (two) Medical times Branch daily with meals. diclofenac 2019-11 Yes [id number] 75mg Take 1 [facility] 75 mg EC 0-08 tablet by ity of tablet 00:00: mouth [place] (two) Medical times Branch daily with meals. diclofenac 2019-11 Yes [id number] 75mg Take 1 [facility] 75 mg EC 0-08 tablet by ity of tablet 00:00: mouth [place] (two) Medical times Branch daily with meals. diclofenac 2019-11 No [id number] 75mg Take 1 [facility] 75 mg EC 0-08 10-25 tablet by ity o f tablet 00:00: 00:00 mouth 2 [place] 00 :00 (two) Medical times Branch daily with meals. diclofenac 2019-11 No [id number] 75mg Take 1 [facility] 75 mg EC 0-08 10-25 tablet by ity o f tablet 00:00: 00:[address] [place] [address] 00 :00 (two) Medical times Branch daily with meals. CLONIDINE 2020- Yes [id number] TAKE 1 Un ally 0.2 mg 8-06 TABLET BY ity of tablet 00:00: MOUTH THREE Medical TIMES Branch DAILY CLONIDINE 2020-0 Yes [id number] TAKE 1 Un ally 0.2 mg 8-06 TABLET BY ity of tablet 00:00: MOUTH THREE Medical TIMES Branch DAILY CLONIDINE 2020-0 Yes [id number] TAKE 1 Un ally 0.2 mg 8-06 TABLET BY ity of tablet 00:00: MOUTH THREE Medical TIMES Branch DAILY CLONIDINE 2020-0 Yes [id number] TAKE 1 Un ally 0.2 mg 8-06 TABLET BY ity of tablet 00:00: MOUTH THREE Medical TIMES Branch DAILY CLONIDINE 2020-0 Yes [id number] TAKE 1 Un ally 0.2 mg 8-06 TABLET BY ity of tablet 00:00: THREE Medical TIMES Branch DAILY CLONIDINE 2020-0 Yes [id number] TAKE 1 Un ally 0.2 mg 8-06 TABLET BY ity of tablet 00:00: THREE Medical TIMES Branch DAILY CLONIDINE 2020-0 Yes [id number] TAKE 1 Un ally 0.2 mg 8-06 TABLET BY ity of tablet 00:00: MOUTH THREE Medical TIMES Branch DAILY CLONIDINE 2020-0 Yes [id number] TAKE 1 Un ally 0.2 mg 8-06 TABLET BY ity of tablet 00:00: THREE Medical TIMES Branch DAILY CLONIDINE 2020-0 Yes [id number] TAKE 1 Un ally 0.2 mg 8-06 TABLET BY ity of tablet 00:00: THREE Medical TIMES Branch DAILY CLONIDINE 2020-0 Yes [id number] TAKE 1 Un ally 0.2 mg 8-06 TABLET BY ity of tablet 00:00: MOUTH THREE Medical TIMES Branch DAILY CLONIDINE 2020-0 Yes [id number] TAKE 1 Un ally 0.2 mg 8-06 TABLET BY ity of tablet 00:00: MOUTH THREE Medical TIMES Branch DAILY CLONIDINE 2020-0 Yes [id number] TAKE 1 Un ally 0.2 mg 8-06 TABLET BY ity of tablet 00:00: MOUTH THREE Medical TIMES Branch DAILY CLONIDINE 2020-0 Yes [id number] TAKE 1 Un ally 0.2 mg 8-06 TABLET BY ity of tablet 00:00: MOUTH THREE Medical TIMES Branch DAILY CLONIDINE 2020-0 Yes [id number] TAKE 1 Un ally 0.2 mg 8-06 TABLET BY ity of tablet 00:00: MOUTH THREE Medical TIMES Branch DAILY CLONIDINE 2020-0 Yes [id number] TAKE 1 Un ally 0.2 mg 8-06 TABLET BY ity of tablet 00:00: MOUTH THREE Medical TIMES Branch DAILY CLONIDINE 2020-0 Yes [id number] TAKE 1 Un ally 0.2 mg 8-06 TABLET BY ity of tablet 00:00: THREE Medical TIMES Branch DAILY CLONIDINE 2020-0 Yes [id number] TAKE 1 Un ally 0.2 mg 8-06 TABLET BY ity of tablet 00:00: MOUTH THREE Medical TIMES Branch DAILY CLONIDINE 2020-0 Yes [id number] TAKE 1 Un ally 0.2 mg 8-06 TABLET BY ity of tablet 00:00: THREE Medical TIMES Branch DAILY CLONIDINE 2020-0 Yes [id number] TAKE 1 Un ally 0.2 mg 8-06 TABLET BY ity of tablet 00:00: THREE Medical TIMES Branch DAILY CLONIDINE 2020-0 Yes [id number] TAKE 1 Un ally 0.2 mg 8-06 TABLET BY ity of tablet 00:00: MOUTH THREE Medical TIMES Branch DAILY CLONIDINE 2020-0 Yes [id number] TAKE 1 Un ally 0.2 mg 8-06 TABLET BY ity of tablet 00:00: THREE Medical TIMES Branch DAILY CLONIDINE 2020-0 Yes [id number] TAKE 1 Un ally 0.2 mg 8-06 TABLET BY ity of tablet 00:00: THREE Medical TIMES Branch DAILY CLONIDINE 2020-0 Yes [id number] TAKE 1 Un ally 0.2 mg 8-06 TABLET BY ity of tablet 00:00: THREE Medical TIMES Branch DAILY CLONIDINE 2020-0 Yes [id number] TAKE 1 Un ally 0.2 mg 8-06 TABLET BY ity of tablet 00:00: MOUTH THREE Medical TIMES Branch DAILY CLONIDINE 2020-0 Yes [id number] TAKE 1 Un ally 0.2 mg 8-06 TABLET BY ity of tablet 00:00: THREE Medical TIMES Branch DAILY CLONIDINE 2020-0 Yes [id number] TAKE 1 Un ally 0.2 mg 8-06 TABLET BY ity of tablet 00:00: THREE Medical TIMES Branch DAILY CLONIDINE 2020-0 Yes [id number] TAKE 1 Un ally 0.2 mg 8-06 TABLET BY ity of tablet 00:00: MOUTH [place] 00 THREE Medical TIMES Branch DAILY CLONIDINE 2020-0 Yes [id number] TAKE 1 Un ally 0.2 mg 8-06 TABLET BY ity of tablet 00:00: MOUTH [place] 00 THREE Medical TIMES Branch DAILY CLONIDINE 2020-0 Yes [id number] TAKE 1 Un ally 0.2 mg 8-06 TABLET BY ity of tablet 00:00: MOUTH [place] 00 THREE Medical TIMES Branch DAILY CLONIDINE 2020-0 Yes [id number] TAKE 1 Un ally 0.2 mg 8-06 TABLET BY ity of tablet 00:00: MOUTH [place] 00 THREE Medical TIMES Branch DAILY CLONIDINE 2020-0 Yes [id number] TAKE 1 Un ally 0.2 mg 8-06 TABLET BY ity of tablet 00:00: MOUTH 00 THREE Medical TIMES Branch DAILY CLONIDINE 2020-0 Yes [id number] TAKE 1 Un ally 0.2 mg 8-06 TABLET BY ity of tablet 00:00: MOUTH 00 THREE Medical TIMES Branch DAILY CLONIDINE 2020-0 Yes [id number] TAKE 1 Un ally 0.2 mg 8-06 TABLET BY ity of tablet 00:00: MOUTH 00 THREE Medical TIMES Branch DAILY CLONIDINE 2020-0 2- No [id number] TAKE 1 U nivers 0.2 mg 8-06 11-21 TABLET BY ity of tablet 00:00: 00:00 MOUTH [place] 00 :00 THREE Medical TIMES Branch DAILY CLONIDINE 2020-0 2- No [id number] TAKE 1 U nivers 0.2 mg 8-06 [...] azole-trime 7-08 BID ity of thoprim 00:00: [place] 800-160 mg 00 Medical per tablet Branch sulfamethox 2020-0 Yes TK 1 T PO U nivers azole-trime 05-08 BID ity of thoprim 00:00: [place] 800-160 mg 00 Medical per tablet Branch sulfamethox 2019-0 2022- No TK 1 T PO Univers azole-trime 05-08 BID ity of thoprim 00:00: 00:00 [place] 800-160 mg 00 :00 Medical per tablet Branch AMITIZA 24 2019-0 Yes TK 1 C PO Un ally mcg capsule 05-06 BID ity of 00:00: [place] [facility] AMITIZA 24 2019-0 Yes TK 1 C PO Un ally mcg capsule 05-06 BID ity of 00:00: [place] [facility] AMITIZA 24 2019-0 Yes TK 1 C PO Un ally mcg capsule 05-06 BID ity of 00:00: [place] [facility] AMITIZA 24 2019-0 Yes TK 1 C PO Un ally mcg capsule 05-06 BID ity of 00:00: [place] [facility] AMITIZA 24 2020-0 Yes TK 1 C PO Un ally mcg capsule - BID ity of 00:00: [place] [facility] AMITIZA 24 2019-0 Yes TK 1 C PO Un ally mcg capsule - BID ity of 00:00: [place] [facility] AMITIZA 24 2019-0 Yes TK 1 C PO Un ally mcg capsule - BID ity of 00:00: [place] [facility] AMITIZA 24 2020-0 Yes TK 1 C PO Un ally mcg capsule - BID ity of 00:00: [place] [facility] AMITIZA 24 2020-0 Yes TK 1 C PO Un ally mcg capsule - BID ity of 00:00: [place] [facility] AMITIZA 24 2020-0 Yes TK 1 C PO Un ally mcg capsule 7- BID ity of 00:00: [place] [facility] AMITIZA 24 2020-0 Yes TK 1 C PO Un ally mcg capsule - BID ity of 00:00: [place] [facility] AMITIZA 24 2020-0 Yes TK 1 C PO Un ally mcg capsule 7-06 BID ity of 00:00: [place] [facility] AMITIZA 24 2020-0 Yes TK 1 C PO Un ally mcg capsule 7- BID ity of 00:00: [place] [facility] AMITIZA 24 2019-0 Yes TK 1 C PO Un ally mcg capsule 7- BID ity of 00:00: [place] [facility] AMITIZA 24 2019-0 Yes TK 1 C PO Un ally mcg capsule - BID ity of 00:00: [place] [facility] AMITIZA 24 2019-0 Yes TK 1 C PO Un ally mcg capsule - BID ity of 00:00: [place] [facility] AMITIZA 24 2019-0 Yes TK 1 C PO Un ally mcg capsule 05-06 BID ity of 00:00: [place] [facility] AMITIZA 24 2019-0 Yes TK 1 C PO Un ally mcg capsule 05-06 BID ity of 00:00: [place] [facility] AMITIZA 24 2019-0 Yes TK 1 C PO Un ally mcg capsule - BID ity of 00:00: [place] [facility] AMITIZA 24 2019-0 Yes TK 1 C PO Un ally mcg capsule - BID ity of 00:00: [place] [facility] AMITIZA 24 2019-0 Yes TK 1 C PO Un ally mcg capsule - BID ity of 00:00: [place] [facility] AMITIZA 24 2019-0 Yes TK 1 C PO Un ally mcg capsule 05-06 BID ity of 00:00: [place] [facility] AMITIZA 24 2019-0 Yes TK 1 C PO Un ally mcg capsule - BID ity of 00:00: [place] [facility] AMITIZA 24 2019-0 Yes TK 1 C PO Un ally mcg capsule - BID ity of 00:00: [place] [facility] AMITIZA 24 2019-0 Yes TK 1 C PO Un ally mcg capsule - BID ity of 00:00: [place] [facility] AMITIZA 24 2019-0 Yes TK 1 C PO Un ally mcg capsule - BID ity of 00:00: [place] [facility] AMITIZA 24 2019-0 Yes TK 1 C PO Un ally mcg capsule - BID ity of 00:00: [place] [facility] AMITIZA 24 2019-0 Yes TK 1 C PO Un ally mcg capsule 7- BID ity of 00:00: [place] [facility] AMITIZA 24 2020-0 Yes TK 1 C PO Un ally mcg capsule 05-06 BID ity of 00:00: [place] [facility] AMITIZA 24 2020-0 Yes TK 1 C PO Un ally mcg capsule 05-06 BID ity of 00:00: [place] [facility] AMITIZA 24 2020-0 Yes TK 1 C PO Un ally mcg capsule 05-06 BID ity of 00:00: [place] [facility] AMITIZA 24 2019-0 Yes TK 1 C PO Un ally mcg capsule 05-06 BID ity of 00:00: [place] [facility] AMITIZA 24 2020-0 Yes TK 1 C PO Un ally mcg capsule 05-06 BID ity of 00:00: [place] [facility] AMITIZA 24 2019-0 Yes TK 1 C PO Un ally mcg capsule 05-06 BID ity of 00:00: [place] [facility] AMITIZA 24 2019-0 Yes TK 1 C PO Un ally mcg capsule 05-06 BID ity of 00:00: [place] [facility] AMITIZA 24 2019-0 Yes TK 1 C PO Un ally mcg capsule 05-06 BID ity of 00:00: [place] [facility] AMITIZA 24 2019-0 Yes TK 1 C PO Un ally mcg capsule 05-06 BID ity of 00:00: [place] [facility] AMITIZA 24 2019-0 Yes TK 1 C PO Un ally mcg capsule 05-06 BID ity of 00:00: [place] [facility] AMITIZA 24 2020-0 Yes TK 1 C PO Un ally mcg capsule 05-06 BID ity of 00:00: [place] [facility] AMITIZA 24 2020-0 Yes TK 1 C PO Un ally mcg capsule 05-06 BID ity of 00:00: [place] [facility] AMITIZA 24 2020-0 Yes TK 1 C PO Un ally mcg capsule - BID ity of 00:00: [place] [facility] AMITIZA 24 2020-0 Yes TK 1 C PO Un ally mcg capsule 05-06 BID ity of 00:00: [place] 00 Medical Branch AMITIZA 24 2020-0 Yes TK 1 C PO Un ally mcg capsule 05-06 BID ity of 00:00: [place] [facility] AMITIZA 24 2020-0 Yes TK [...] BID ity of 00:00: 00 Medical Branch AMITIZA 24 2020-0 Yes TK 1 C PO Un ally mcg capsule 7-06 BID ity of 00:00: [place] 00 Medical Branch AMITIZA 24 2020-0 Yes TK 1 C PO Un ally mcg capsule 7-06 BID ity of 00:00: 00 Medical Branch AMITIZA 24 2020-0 Yes TK 1 C PO Un ally mcg capsule 7-06 BID ity of 00:00: 00 Medical Branch XIFAXAN 550 2020-0 Yes as needed. [facility] mg tablet 5-14 ity of 00:00: [place] 00 Medical Branch XIFAXAN 550 2020-0 Yes as needed. Univers mg tablet 5-14 ity of 00:00: [place] [facility] XIFAXAN 550 2020-0 Yes as [...] Univers mg tablet 5-14 ity of 00:00: [place] [facility] XIFAXAN 550 2020-0 Yes as needed. [facility] mg tablet 5-14 ity of 00:00: [place] [facility] XIFAXAN 550 2020-0 Yes as needed. Univers mg tablet 5-14 ity of 00:00: [place] [facility] XIFAXAN 550 2020-0 Yes as needed. [facility] mg tablet 5-14 ity of 00:00: [place] [facility] VICTOZA 2020-0 Yes INJECT 1.8 [...] mg 09:53: mouth [place] tablet 14 daily. [facility] ALPRAZolam 2019-0 Yes 2mg [...] mg 09:53: mouth [place] tablet 14 daily. [facility] ALPRAZolam 2019-0 Yes 2mg Take 2 mg Un ally (XANAX) 8-28 by mouth ity of 0.25 mg 09:53: every 6 [place] tablet 14 (six) Medical hours as Branch needed. allopurinol 2019-0 Yes 100mg Take 100 U nivers (ZYLOPRIM) 8-28 mg by ity of 100 mg 09:53: mouth [place] tablet 14 daily. [facility] ALPRAZolam 2019-0 Yes 2mg Take 2 mg Un ally (XANAX) 8-28 by mouth ity of 0.25 mg 09:53: every 6 [place] tablet 14 (six) Medical hours as Branch needed. allopurinol 2019-0 Yes 100mg Take 100 U nivers (ZYLOPRIM) 8-28 mg by ity of 100 mg 09:53: mouth [place] tablet 14 daily. [facility] ALPRAZolam 2019-0 Yes 2mg Take 2 mg Un ally (XANAX) 8-28 by mouth ity of 0.25 mg 09:53: every 6 [place] tablet 14 (six) Medical hours as Branch needed. allopurinol 2019-0 Yes 100mg Take 100 U nivers (ZYLOPRIM) 8-28 mg by ity of 100 mg 09:53: mouth [place] tablet 14 daily. [facility] ALPRAZolam 2019-0 Yes 2mg Take 2 mg Un ally (XANAX) 8-28 by mouth ity of 0.25 mg 09:53: every 6 [place] tablet 14 (six) Medical hours as Branch needed. allopurinol 2019-0 Yes 100mg Take 100 U nivers (ZYLOPRIM) 8-28 mg by ity of 100 mg 09:53: mouth [place] tablet 14 daily. [facility] ALPRAZolam 2019-0 Yes 2mg Take 2 mg Un ally (XANAX) 8-28 by mouth ity of 0.25 mg 09:53: every 6 [place] tablet 14 (six) Medical hours as Branch needed. allopurinol 2019-0 Yes 100mg Take 100 U nivers (ZYLOPRIM) 8-28 mg by ity of 100 mg 09:53: mouth [place] tablet 14 daily. [facility] ALPRAZolam 2019-0 Yes 2mg Take 2 mg Un ally (XANAX) 8-28 by mouth ity of 0.25 mg 09:53: every 6 [place] tablet 14 (six) Medical hours as Branch needed. allopurinol 2019-0 Yes 100mg Take 100 U nivers (ZYLOPRIM) 8-28 mg by ity of 100 mg 09:53: mouth [place] tablet 14 daily. [facility] ALPRAZolam 2019-0 Yes 2mg Take 2 mg Un ally (XANAX) 8-28 by mouth ity of 0.25 mg 09:53: every 6 [place] tablet 14 (six) Medical hours as Branch needed. allopurinol 2019-0 Yes 100mg Take 100 U nivers (ZYLOPRIM) 8-28 mg by ity of 100 mg 09:53: mouth [place] tablet 14 daily. [facility] ALPRAZolam 2019-0 Yes 2mg Take 2 mg Un ally (XANAX) 8-28 by mouth ity of 0.25 mg 09:53: every 6 [place] tablet 14 (six) Medical hours as Branch needed. allopurinol 2019-0 Yes 100mg Take 100 U nivers (ZYLOPRIM) 8-28 mg by ity of 100 mg 09:53: mouth [place] tablet 14 daily. [facility] ALPRAZolam 2019-0 Yes 2mg [...] mg 09:53: mouth [place] tablet 14 daily. [facility] ALPRAZolam 2019-0 Yes 2mg Take 2 mg Un ally (XANAX) 8-28 by mouth ity of 0.25 mg 09:53: every 6 [place] tablet 14 (six) Medical hours as Branch needed. allopurinol 2019-0 Yes 100mg Take 100 U nivers (ZYLOPRIM) 8-28 mg by ity of 100 mg 09:53: mouth [place] tablet 14 daily. [facility] ALPRAZolam 2019-0 Yes 2mg Take 2 mg Un ally (XANAX) 8-28 by mouth ity of 0.25 mg 09:53: every 6 [place] tablet 14 (six) Medical hours as Branch needed. allopurinol 2019-0 Yes 100mg Take 100 U nivers (ZYLOPRIM) 8-28 mg by ity of 100 mg 09:53: mouth [place] tablet 14 daily. [facility] ALPRAZolam 2019-0 Yes 2mg Take 2 mg Un ally (XANAX) 8-28 by mouth ity of 0.25 mg 09:53: every 6 [place] tablet 14 (six) Medical hours as Branch needed. allopurinol 2019-0 Yes 100mg Take 100 U nivers (ZYLOPRIM) 8-28 mg by ity of 100 mg 09:53: mouth [place] tablet 14 daily. [facility] ALPRAZolam 2019-0 Yes 2mg Take 2 mg Un ally (XANAX) 8-28 by mouth ity of 0.25 mg 09:53: every 6 [place] tablet 14 (six) Medical hours as Branch needed. allopurinol 2019-0 Yes 100mg Take 100 U nivers (ZYLOPRIM) 8-28 mg by ity of 100 mg 09:53: mouth [place] tablet 14 daily. [facility] ALPRAZolam 2019-0 Yes 2mg [...] (six) Medical hours as Branch needed. atorvastati 2019-0 Yes [id number] 40mg Take 1 Univers n 40 mg 5-28 tablet by ity of tablet 00:00: mouth [place] 00 every Medical evening. Branch atorvastati 2019-0 Yes [id number] 40mg Take 1 Univers n 40 mg 5-28 tablet by ity of tablet 00:00: mouth [place] 00 every Medical evening. Branch atorvastati 2019-0 Yes [id number] 40mg Take 1 Univers n 40 mg 5-28 tablet by ity of tablet 00:00: mouth [place] 00 every Medical evening. Branch atorvastati 2019-0 Yes [id number] 40mg Take 1 Univers n 40 mg 5-28 tablet by ity of tablet 00:00: mouth [place] 00 every Medical evening. [place] atorvastati 0 Yes [id number] 40mg Take 1 Univers n 40 mg 5-28 tablet by ity of tablet 00:00: mouth [place] 00 every Medical evening. [place] atorvastati 0 Yes [id number] 40mg Take 1 Univers n 40 mg 5-28 tablet by ity of tablet 00:00: mouth [place] 00 every Medical evening. [place] atorvastati Yes [id number] 40mg Take 1 Univers n 40 mg 5-28 tablet by ity of tablet 00:00: mouth [place] 00 every Medical evening. [place] atorvastati Yes [id number] 40mg Take 1 Univers n 40 mg 5-28 tablet by ity of tablet 00:00: mouth [place] 00 every Medical evening. [place] atorvastati Yes [id number] 40mg Take 1 Univers n 40 mg 5-28 tablet by ity of tablet 00:00: mouth [place] 00 every Medical evening. [place] atorvastati Yes [id number] 40mg Take 1 Univers n 40 mg 5-28 tablet by ity of tablet 00:00: mouth [place] 00 every Medical evening. [place] atorvastati Yes [id number] 40mg Take 1 Univers n 40 mg 5-28 tablet by ity of tablet 00:00: mouth [place] 00 every Medical evening. [place] atorvastati 0 Yes [id number] 40mg Take 1 Univers n 40 mg 5-28 tablet by ity of tablet 00:00: mouth [place] 00 every Medical evening. [place] atorvastati 0 Yes [id number] 40mg Take 1 Univers n 40 mg 5-28 tablet by ity of tablet 00:00: mouth [place] 00 every Medical evening. [place] atorvastati 0 Yes [id number] 40mg Take 1 Univers n 40 mg 5-28 tablet by ity of tablet 00:00: mouth [place] 00 every Medical evening. [place] atorvastati 0 Yes [id number] 40mg Take 1 [facility] 40 [facility] 5-28 tablet by [facility] of tablet 00:00: mouth [place] 00 every Medical evening. [place] atorvastati Yes [id number] 40mg Take 1 [facility] 40 mg 5-28 tablet by [facility] of tablet 00:00: mouth [place] 00 every Medical evening. [place] atorvastati Yes [id number] 40mg Take 1 [facility] 40 mg 5-28 tablet by [facility] of tablet 00:00: mouth [place] 00 every Medical evening. [facility] atorvastati Yes [id number] 40mg Take 1 [facility] 40 mg 5-28 tablet by [facility] of tablet 00:00: mouth [place] 00 every Medical evening. [facility] atorvastati Yes [id number] 40mg Take 1 [facility] 40 mg 5-28 tablet by [facility] of tablet 00:00: mouth [place] 00 every Medical evening. [facility] atorvastati Yes [id number] 40mg Take 1 [facility] 40 mg 5-28 tablet by [facility] of tablet 00:00: mouth [place] 00 every Medical evening. [facility] atorvastati Yes [id number] 40mg Take 1 [facility] 40 mg 5-28 tablet by [facility] of tablet 00:00: mouth [place] 00 every Medical evening. [facility] atorvastati Yes [id number] 40mg Take 1 [facility] 40 mg 5-28 tablet by [facility] of tablet 00:00: mouth [place] 00 every Medical evening. [place] atorvastati Yes [id number] 40mg Take 1 [facility] 40 mg 5-28 tablet by [facility] of tablet 00:00: mouth [place] 00 every Medical evening. [facility] atorvastati Yes [id number] 40mg Take 1 [facility] 40 mg 5-28 tablet by [facility] of tablet 00:00: mouth [place] 00 every Medical evening. [facility] atorvastati Yes [id number] 40mg Take 1 [facility] 40 mg 5-28 tablet by [facility] of tablet 00:00: mouth [place] 00 every Medical evening. [facility] atorvastati Yes [id number] 40mg Take 1 [facility] 40 mg 5-28 tablet by [facility] of tablet 00:00: mouth [place] 00 every Medical evening. [facility] atorvastati Yes [id number] 40mg Take 1 [facility] 40 mg 5-28 tablet by [facility] of tablet 00:00: mouth [place] 00 every Medical evening. [facility] atorvastati Yes [id number] 40mg Take 1 [facility] 40 mg 5-28 tablet by [facility] of tablet 00:00: mouth [place] 00 every Medical evening. [facility] atorvastati 2019-0 Yes [id number] 40mg Take 1 [facility] 40 mg 5-28 tablet by [facility] of tablet 00:00: mouth [place] 00 every Medical evening. [facility] atorvastati Yes [id number] 40mg Take 1 [facility] 40 mg 5-28 tablet by [facility] of tablet 00:00: mouth [place] 00 every Medical evening. [facility] atorvastati Yes [id number] 40mg Take 1 [facility] 40 mg 5-28 tablet by [facility] of tablet 00:00: mouth [place] 00 every Medical evening. [facility] atorvastati Yes [id number] 40mg Take 1 [facility] 40 mg 5-28 tablet by [facility] of tablet 00:00: mouth [place] 00 every Medical evening. [facility] atorvastati Yes [id number] 40mg Take 1 [facility] 40 mg 5-28 tablet by [facility] of tablet 00:00: mouth [place] 00 every Medical evening. [facility] atorvastati 2- No [id number] 40mg Take 1 [facility] 40 mg 5-28 11-21 tablet by [facility] of tablet 00:00: 00:00 mouth [place] 00 :00 every Medical evening. [facility] atorvastati 2- No [id number] 40mg Take 1 [facility] 40 mg [...] :00 daily. Medical [facility] Cholecalcif 2017-11 Yes [id number] Take 1 [facility], 0-01 capsule by [facility] of Vitamin D3, 00:00: mouth [place] 50,000 unit 00 weekly. Medic al capsule [facility] Cholecalcif 2017-11 Yes [id number] Take 1 [facility], 0-01 capsule by ity of Vitamin D3, 00:00: mouth [place] 50,000 unit 00 weekly. Medic al capsule [facility] Cholecalcif 2017-11 Yes [id number] Take 1 [facility], 0-01 capsule by ity of Vitamin D3, 00:00: mouth [place] 50,000 unit 00 weekly. Medic al capsule [facility] Cholecalcif 2017-11 Yes [id number] Take 1 [facility], 0-01 capsule by ity of Vitamin D3, 00:00: mouth [place] 50,000 unit 00 weekly. Medic al capsule [facility] Cholecalcif 2017-11 Yes [id number] Take 1 [facility], 0-01 capsule by ity of Vitamin D3, 00:00: mouth [place] 50,000 unit 00 weekly. Medic al capsule [facility] Cholecalcif 2017-11 Yes [id number] Take 1 [facility], 0-01 capsule by ity of Vitamin D3, 00:00: mouth [place] 50,000 unit 00 weekly. Medic al capsule [facility] Cholecalcif 2017-11 Yes [id number] Take 1 [facility], 0-01 capsule by [facility]y of Vitamin D3, 00:00: mouth [place] 50,000 unit 00 weekly. Medic al capsule [facility] Cholecalcif 2017-11 Yes [id number] Take 1 [facility], 0-01 capsule by ity of Vitamin D3, 00:00: mouth [place] 50,000 unit 00 weekly. Medic al capsule [facility] Cholecalcif 2017-11 Yes [id number] Take 1 [facility], 0-01 capsule by ity of Vitamin D3, 00:00: mouth [place] 50,000 unit 00 weekly. Medic al capsule [facility] Cholecalcif 2017-11 Yes [id number] Take 1 [facility], 0-01 capsule by ity of Vitamin D3, 00:00: mouth [place] 50,000 unit 00 weekly. Medic al capsule [facility] Cholecalcif 2017-11 Yes [id number] Take 1 [facility], 0-01 capsule by ity of Vitamin D3, 00:00: mouth [place] 50,000 unit 00 weekly. Medic al capsule [facility] Cholecalcif 2017-11 Yes [id number] Take 1 [facility], 0-01 capsule by ity of Vitamin D3, 00:00: mouth [place] 50,000 unit 00 weekly. Medic al capsule [facility] Cholecalcif 2017-11 Yes [id number] Take 1 [facility], 0-01 capsule by ity of Vitamin D3, 00:00: mouth [place] 50,000 unit 00 weekly. Medic al capsule [facility] Cholecalcif 2017-11 Yes [id number] Take 1 [facility], 0-01 capsule by ity of Vitamin D3, 00:00: mouth [place] 50,000 unit 00 weekly. Medic al capsule [facility] Cholecalcif 2017-11 Yes [id number] Take 1 [facility], 0-01 capsule by ity of Vitamin D3, 00:00: mouth [place] 50,000 unit 00 weekly. Medic al capsule [facility] Cholecalcif 2017-11 Yes [id number] Take 1 [facility], 0-01 capsule by ity of Vitamin D3, 00:00: mouth [place] 50,000 unit 00 weekly. Medic al capsule [facility] Cholecalcif 2017-11 Yes [id number] Take 1 [facility], 0-01 capsule by ity of Vitamin D3, 00:00: mouth [place] 50,000 unit 00 weekly. Medic al capsule [facility] Cholecalcif 2017-11 Yes [id number] Take 1 [facility], 0-01 capsule by ity of Vitamin D3, 00:00: mouth [place] 50,000 unit 00 weekly. Medic al capsule [facility] Cholecalcif 2017-11 Yes [id number] Take 1 [facility], 0-01 capsule by ity of Vitamin D3, 00:00: mouth [place] 50,000 unit 00 weekly. Medic al capsule [facility] Cholecalcif 2017-11 Yes [id number] Take 1 [facility], 0-01 capsule by ity of Vitamin D3, 00:00: mouth [place] 50,000 unit 00 weekly. Medic al capsule [facility] Cholecalcif 2017-11 Yes [id number] Take 1 [facility], 0-01 capsule by ity of Vitamin D3, 00:00: mouth [place] 50,000 unit 00 weekly. Medic al capsule [facility] Cholecalcif 2017-11 Yes [id number] Take 1 [facility], 0-01 capsule by ity of Vitamin D3, 00:00: mouth [place] 50,000 unit 00 weekly. Medic al capsule [facility] Cholecalcif 2017-11 Yes [id number] Take 1 [facility], 0-01 capsule by ity of Vitamin D3, 00:00: mouth [place] 50,000 unit 00 weekly. Medic al capsule [facility] Cholecalcif 2017-11 Yes [id number] Take 1 [facility], 0-01 capsule by ity of Vitamin D3, 00:00: mouth [place] 50,000 unit 00 weekly. Medic al capsule [facility] Cholecalcif 2017-11 Yes [id number] Take 1 [facility], 0-01 capsule by ity of Vitamin D3, 00:00: mouth [place] 50,000 unit 00 weekly. Medic al capsule [facility] Cholecalcif 2017-11 Yes [id number] Take 1 [facility], 0-01 capsule by ity of Vitamin D3, 00:00: mouth [place] 50,000 unit 00 weekly. Medic al capsule [facility] Cholecalcif 2017-11 Yes [id number] Take 1 [facility], 0-01 capsule by ity of Vitamin D3, 00:00: mouth [place] 50,000 unit 00 weekly. Medic al capsule [facility] Cholecalcif 2017-11 Yes [id number] Take 1 [facility], 0-01 capsule by ity of Vitamin D3, 00:00: mouth [place] 50,000 unit 00 weekly. Medic al capsule [facility] Cholecalcif 2017-11 Yes [id number] Take 1 [facility], 0-01 capsule by ity of Vitamin D3, 00:00: mouth [place] 50,000 unit 00 weekly. Medic al capsule [facility] Cholecalcif 2017-11 Yes [id number] Take 1 [facility], 0-01 capsule by ity of Vitamin D3, 00:00: mouth [place] 50,000 unit 00 weekly. Medic al capsule [facility] Cholecalcif 2017-11 Yes [id number] Take 1 [facility], 0-01 capsule by ity of Vitamin D3, 00:00: mouth [place] 50,000 unit 00 weekly. Medic al capsule [facility] Cholecalcif 2017-11 Yes [id number] Take 1 [facility], 0-01 capsule by ity of Vitamin D3, 00:00: mouth [place] 50,000 unit 00 weekly. Medic al capsule [facility] Cholecalcif 2017-11 Yes [id number] Take 1 [facility], 0-01 capsule by ity of Vitamin D3, 00:00: mouth [place] 50,000 unit 00 weekly. Medic al capsule [facility] Cholecalcif 2017-11 Yes [id number] Take 1 [facility], 0-01 capsule by ity of Vitamin D3, 00:00: mouth [place] 50,000 unit 00 weekly. Medic al capsule [facility] Cholecalcif 2017-11 Yes [id number] Take 1 [facility], 0-01 capsule by ity of Vitamin D3, 00:00: mouth [place] 50,000 unit 00 weekly. Medic al capsule [facility] Cholecalcif 2017-11 Yes [id number] Take 1 [facility], 0-01 capsule by ity of Vitamin D3, 00:00: mouth [place] 50,000 unit 00 weekly. Medic al capsule [facility] Cholecalcif 2017-11 Yes [id number] Take 1 [facility], 0-01 capsule by ity of Vitamin D3, 00:00: mouth [place] 50,000 unit 00 weekly. Medic al capsule [facility] Cholecalcif 2017-11 Yes [id number] Take 1 [facility], 0-01 capsule by ity of Vitamin D3, 00:00: mouth [place] 50,000 unit 00 weekly. Medic al capsule [facility] Cholecalcif 2017-11 Yes [id number] Take 1 [facility], 0-01 capsule by ity of Vitamin D3, 00:00: mouth [place] 50,000 unit 00 weekly. Medic al capsule [facility] Cholecalcif 2017-11 Yes [id number] Take 1 [facility], 0-01 capsule by ity of Vitamin D3, 00:00: mouth [place] 50,000 unit 00 weekly. Medic al capsule [facility] Cholecalcif 2017-11 Yes [id number] Take 1 [facility], 0-01 capsule by ity of Vitamin D3, 00:00: mouth [place] 50,000 unit 00 weekly. Medic al capsule [facility] Cholecalcif 2017-11 Yes [id number] Take 1 [facility], 0-01 capsule by ity of Vitamin D3, 00:00: mouth [place] 50,000 unit 00 weekly. Medic al capsule [facility] Cholecalcif 2017-11 Yes [id number] Take 1 [facility], 0-01 capsule by ity of Vitamin D3, 00:00: mouth [place] 50,000 unit 00 weekly. Medic al capsule [facility] Cholecalcif 2017-11 Yes [id number] Take 1 [facility], 0-01 capsule by ity of Vitamin D3, 00:00: mouth [place] 50,000 unit 00 weekly. Medic al capsule [facility] Cholecalcif 2017-11 Yes [id number] Take 1 [facility], 0-01 capsule by ity of Vitamin D3, 00:00: mouth [place] 50,000 unit 00 weekly. Medic al capsule [facility] Cholecalcif 2017-11 Yes [id number] Take 1 [facility], 0-01 capsule by ity of Vitamin D3, 00:00: mouth [place] 50,000 unit 00 weekly. Medic al capsule [facility] Cholecalcif 2017-11 Yes [id number] Take 1 [facility], 0-01 capsule by ity of Vitamin D3, 00:00: mouth [place] 50,000 unit 00 weekly. Medic al capsule [facility] Cholecalcif 2017-11 Yes [id number] Take 1 [facility], 0-01 capsule by ity of Vitamin D3, 00:00: mouth [place] 50,000 unit 00 weekly. Medic al capsule [facility] Cholecalcif 2017-11 Yes [id number] Take 1 [facility], 0-01 capsule by ity of Vitamin D3, 00:00: mouth [place] 50,000 unit 00 weekly. Medic al capsule Branch Lactated 2018-0 No 1,000 mL, [place] radha Ringers IV 6-04 Rate: 40 l 1,000 mL 19:14: ml/hr, [place] 00 Infuse over: 25 hr, Route: IV, Dosing Weight 141.364 kg, Total Volume: 1,000, Start date: 04/04/18 14:14:00 CDT, Duration: 30 day, Stop date: 05/04/18 14:13:00 CDT, 2.56, m2 Lactated 2018-0 No 1,000 mL, [place] [facility] Ringers IV 6-04 Rate: 40 l 1,000 mL 19:14: ml/hr, [place] 00 Infuse over: 25 hr, Route: IV, [...] Rate: 40 l 1,000 mL 19:14: ml/hr, [place] 00 Infuse over: 25 hr, Route: IV, Dosing Weight 141.364 kg, Total Volume: 1,000, Start date: 04/04/18 14:14:00 CDT, Duration: 30 day, Stop date: 05/04/18 14:13:00 CDT, 2.56, m2 Lactated 2018-0 No 1,000 mL, [place] [facility] Ringers IV 6-04 Rate: 40 l 1,000 mL 19:14: ml/hr, [place] 00 Infuse over: 25 hr, Route: IV, [...] Rate: 40 l 1,000 mL 19:14: ml/hr, [place] 00 Infuse over: 25 hr, Route: IV, Dosing Weight 141.364 kg, Total Volume: 1,000, Start date: 04/04/18 14:14:00 CDT, Duration: 30 day, Stop date: 05/04/18 14:13:00 CDT, 2.56, m2 Lactated 2018-0 No 1,000 mL, [place] [facility] Ringers IV 6-04 Rate: 40 l 1,000 mL 19:14: ml/hr, [place] 00 Infuse over: 25 hr, Route: IV, [...] Rate: 40 l 1,000 mL 19:14: ml/hr, [place] 00 Infuse over: 25 hr, Route: IV, Dosing Weight 141.364 kg, Total Volume: 1,000, Start date: 04/04/18 14:14:00 CDT, Duration: 30 day, Stop date: 05/04/18 14:13:00 CDT, 2.56, m2 Lactated 2018-0 No 1,000 mL, [place] [facility] Ringers IV 6-04 Rate: 40 l 1,000 mL 19:14: ml/hr, [place] 00 Infuse over: 25 hr, Route: IV, Dosing Weight 141.364 kg, Total Volume: 1,000, Start date: 04/04/18 14:14:00 CDT, Duration: 30 day, Stop date: 05/04/18 14:13:00 CDT, 2.56, m2 Lactated 2018-0 No 1,000 mL, [place] [facility] Ringers IV 6-04 Rate: 40 l 1,000 mL 19:14: ml/hr, [place] 00 Infuse over: 25 hr, Route: IV, Dosing Weight 141.364 kg, Total Volume: 1,000, Start date: 04/04/18 14:14:00 CDT, Duration: 30 day, Stop date: 05/04/18 14:13:00 CDT, 2.56, m2 Lactated 2018-0 No 1,000 mL, [place] [facility] Ringers IV 6-04 Rate: 40 l 1,000 mL 19:14: ml/hr, [place] 00 Infuse over: 25 hr, Route: IV, [...] Rate: 40 l 1,000 mL 19:14: ml/hr, [place] 00 Infuse over: 25 hr, Route: IV, [...] 2.56, m2 Lactated 2018-0 No 1,000 mL, [place] [facility] Ringers IV 6-04 Rate: 40 l [...] Rate: 40 l 1,000 mL 19:14: ml/hr, [place] 00 Infuse over: 25 hr, Route: IV, Dosing Weight 141.364 kg, Total Volume: 1,000, Start date: 04/04/18 14:14:00 CDT, Duration: 30 day, Stop date: 05/04/18 14:13:00 CDT, 2.56, m2 Lactated 2018-0 No 1,000 mL, [place] [facility] Ringers IV 6-04 Rate: 40 l 1,000 mL 19:14: ml/hr, [place] 00 Infuse over: 25 hr, Route: IV, [...] Rate: 40 l 1,000 mL 19:14: ml/hr, [place] 00 Infuse over: 25 hr, Route: IV, [...] Rate: 40 l 1,000 mL 19:14: ml/hr, [place] 00 Infuse over: 25 hr, Route: IV, Dosing Weight 141.364 kg, Total Volume: 1,000, Start date: 04/04/18 14:14:00 CDT, Duration: 30 day, Stop date: 05/04/18 14:13:00 CDT, 2.56, m2 Lactated 2018-0 No 1,000 mL, [place] [facility] Ringers IV 6-04 Rate: 40 l 1,000 mL 19:14: ml/hr, [place] 00 Infuse over: 25 hr, Route: IV, Dosing Weight 141.364 kg, Total Volume: 1,000, Start date: 04/04/18 14:14:00 CDT, Duration: 30 day, Stop date: 05/04/18 14:13:00 CDT, 2.56, m2 Lactated 2018-0 No 1,000 mL, [place] [facility] Ringers IV 6-04 Rate: 40 l 1,000 mL 19:14: ml/hr, [place] 00 Infuse over: 25 hr, Route: IV, [...] Rate: 40 l 1,000 mL 19:14: ml/hr, [place] 00 Infuse over: 25 hr, Route: IV, [...] Rate: 40 l 1,000 mL 19:14: ml/hr, [place] 00 Infuse over: 25 hr, Route: IV, Dosing Weight 141.364 kg, Total Volume: 1,000, Start date: 04/04/18 14:14:00 CDT, Duration: 30 day, Stop date: 05/04/18 14:13:00 CDT, 2.56, m2 Lactated 2018-0 No 1,000 mL, [place] [facility] Ringers IV 6-04 Rate: 40 l 1,000 mL 19:14: ml/hr, [place] 00 Infuse over: 25 hr, Route: IV, Dosing Weight 141.364 kg, Total Volume: 1,000, Start date: 04/04/18 14:14:00 CDT, Duration: 30 day, Stop date: 05/04/18 14:13:00 CDT, 2.56, m2 Lactated 2018-0 No 1,000 mL, [place] [facility] Ringers IV 6-04 Rate: 40 l 1,000 mL 19:14: ml/hr, [place] 00 Infuse over: 25 hr, Route: IV, [...] Rate: 40 l 1,000 mL 19:14: ml/hr, [place] 00 Infuse over: 25 hr, Route: IV, [...] Rate: 40 l 1,000 mL 19:14: ml/hr, [place] 00 Infuse over: 25 hr, Route: IV, Dosing Weight 141.364 kg, Total Volume: 1,000, Start date: 04/04/18 14:14:00 CDT, Duration: 30 day, Stop date: 05/04/18 14:13:00 CDT, 2.56, m2 Lactated 2018-0 No 1,000 mL, [place] [facility] Ringers IV 6-04 Rate: 40 l 1,000 mL 19:14: ml/hr, [place] 00 Infuse over: 25 hr, Route: IV, [...] Rate: 40 l 1,000 mL 19:14: ml/hr, [place] 00 Infuse over: 25 hr, Route: IV, Dosing Weight 141.364 kg, Total Volume: 1,000, Start date: 04/04/18 14:14:00 CDT, Duration: 30 day, Stop date: 05/04/18 14:13:00 CDT, 2.56, m2 Lactated 2018-0 No 1,000 mL, [place] [facility]ers IV 6-04 Rate: 40 l 1,000 mL 19:14: ml/hr, [place] 00 Infuse over: 25 hr, Route: IV, [...] Rate: 40 l 1,000 mL 19:14: ml/hr, [place] 00 Infuse over: 25 hr, Route: IV, Dosing Weight 141.364 kg, Total Volume: 1,000, Start date: 04/04/18 14:14:00 CDT, Duration: 30 day, Stop date: 05/04/18 14:13:00 CDT, 2.56, m2 Lactated 2018-0 No 1,000 mL, [place] [facility] Ringers IV 6-04 Rate: 40 l 1,000 mL 19:14: ml/hr, [place] 00 Infuse over: 25 hr, Route: IV, Dosing Weight 141.364 kg, Total Volume: 1,000, Start date: 04/04/18 14:14:00 CDT, Duration: 30 day, Stop date: 05/04/18 14:13:00 CDT, 2.56, m2 Lactated 2018-0 No 1,000 mL, [place] [facility]ers IV 6-04 Rate: 40 l 1,000 mL 19:14: ml/hr, [place] 00 Infuse over: 25 hr, Route: IV, Dosing Weight 141.364 kg, Total Volume: 1,000, Start date: 04/04/18 14:14:00 CDT, Duration: 30 day, Stop date: 05/04/18 14:13:00 CDT, 2.56, m2 Lactated 2018-0 No 1,000 mL, [place] [facility]ers IV 6-04 Rate: 40 l 1,000 mL 19:14: ml/hr, [place] 00 Infuse over: 25 hr, Route: IV, [...] Rate: 40 l 1,000 mL 19:14: ml/hr, [place] 00 Infuse over: 25 hr, Route: IV, [...] Rate: 40 l 1,000 mL 19:14: ml/hr, [place] 00 Infuse over: 25 hr, Route: IV, Dosing Weight 141.364 kg, Total Volume: 1,000, Start date: 04/04/18 14:14:00 CDT, Duration: 30 day, Stop date: 05/04/18 14:13:00 CDT, 2.56, m2 Lactated 2018-0 No 1,000 mL, [place] [facility] Ringers IV 6-04 Rate: 40 l 1,000 mL 19:14: ml/hr, [place] 00 Infuse over: 25 hr, Route: IV, Dosing Weight 141.364 kg, Total Volume: 1,000, Start date: 04/04/18 14:14:00 CDT, Duration: 30 day, Stop date: 05/04/18 14:13:00 CDT, 2.56, m2 Lactated 2018-0 No 1,000 mL, [place] [facility]ers IV 6-04 Rate: 40 l 1,000 mL 19:14: ml/hr, [place] 00 Infuse over: 25 hr, Route: IV, Dosing Weight 141.364 kg, Total Volume: 1,000, Start date: 04/04/18 14:14:00 CDT, Duration: 30 day, Stop date: 05/04/18 14:13:00 CDT, 2.56, m2 Lactated 2018-0 No 1,000 mL, [place] [facility]ers IV 6-04 Rate: 40 l 1,000 mL 19:14: ml/hr, [place] 00 Infuse over: 25 hr, Route: IV, Dosing Weight 141.364 kg, Total Volume: 1,000, Start date: 04/04/18 14:14:00 CDT, Duration: 30 day, Stop date: 05/04/18 14:13:00 CDT, 2.56, m2 Lactated 2017-0 No 1,000 mL, [place] [facility]ers IV 04-04 Rate: 40 l 1,000 mL 19:14: ml/hr, [place] 00 Infuse over: 25 hr, Route: IV, [...] 70/30 5-15 SUB-Q, l 18:44: QPM, 0 [place] 00 Refill(s) Humulin 2018-0 Yes 60 unit, [facility] 70/30 5-15 SUB-Q, l 18:44: QPM, 0 [place] 00 Refill(s) Humulin 2018-0 Yes 60 unit, [facility] 70/30 5-15 SUB-Q, l 18:44: QPM, 0 [place] 00 Refill(s) Humulin 2018-0 Yes 60 unit, [facility] 70/30 5-15 SUB-Q, l 18:44: QPM, 0 [place] 00 Refill(s) Humulin 2018-0 Yes 60 unit, [facility] 70/30 5-15 SUB-Q, l 18:44: QPM, 0 [place] 00 Refill(s) Humulin 2018-0 Yes 60 unit, [facility] 70/30 5-15 SUB-Q, l 18:44: QPM, 0 [place] 00 Refill(s) Humulin 2018-0 Yes 60 unit, [facility] 70/30 5-15 SUB-Q, l 18:44: QPM, 0 [place] 00 Refill(s) Humulin 2018-0 Yes 60 unit, [facility] 70/30 5-15 SUB-Q, l 18:44: QPM, 0 [place] 00 Refill(s) Humulin 2018-0 Yes 60 unit, [facility] 70/30 5-15 SUB-Q, l 18:44: QPM, 0 [place] 00 Refill(s) Humulin 2018-0 Yes 60 unit, [facility] 70/30 5-15 SUB-Q, l 18:44: QPM, 0 [place] 00 Refill(s) Humulin 2018-0 Yes 60 unit, [facility] 70/30 5-15 SUB-Q, l 18:44: QPM, 0 [place] 00 Refill(s) Humulin 2018-0 Yes 60 unit, [facility] 70/30 5-15 SUB-Q, l 18:44: QPM, 0 [place] 00 Refill(s) Humulin 2018-0 Yes 60 unit, [facility] 70/30 5-15 SUB-Q, l 18:44: QPM, 0 [place] 00 Refill(s) Humulin 2018-0 Yes 60 unit, [facility] 70/30 5-15 SUB-Q, l 18:44: QPM, 0 [place] 00 Refill(s) Humulin 2018-0 Yes 60 unit, [facility] 70/30 5-15 SUB-Q, l 18:44: QPM, 0 [place] 00 Refill(s) Humulin 2018-0 Yes 60 unit, [facility] 70/30 5-15 SUB-Q, l 18:44: QPM, 0 [place] 00 Refill(s) Humulin 2018-0 Yes 60 unit, [facility] 70/30 5-15 SUB-Q, l 18:44: QPM, 0 [place] 00 Refill(s) Humulin 2018-0 Yes 60 unit, [facility] 70/30 5-15 SUB-Q, l 18:44: QPM, 0 [place] 00 Refill(s) Humulin 2018-0 Yes 60 unit, [facility] 70/30 5-15 SUB-Q, l 18:44: QPM, 0 [place] 00 Refill(s) Humulin 2018-0 Yes 60 unit, [...] 70/30 5-15 SUB-Q, l 18:44: QPM, 0 [place] 00 Refill(s) Humulin 2017-0 Yes 60 unit, [facility] 70/30 5-15 SUB-Q, l 18:44: QPM, 0 [place] 00 Refill(s) Humulin 2018-0 Yes 60 unit, [facility] 70/30 5-15 SUB-Q, l 18:44: QPM, 0 [place] 00 Refill(s) Humulin 2017-0 Yes 60 unit, [facility] 70/30 5-15 SUB-Q, l 18:44: QPM, 0 [place] 00 Refill(s) Humulin 2018-0 Yes 60 unit, [facility] 70/30 5-15 SUB-Q, l 18:44: QPM, 0 [place] 00 Refill(s) Humulin 2018-0 Yes 60 unit, [facility] 70/30 5-15 SUB-Q, l 18:44: QPM, 0 [place] 00 Refill(s) Humulin 2018-0 Yes 60 unit, [facility] 70/30 5-15 SUB-Q, l 18:44: QPM, 0 [place] 00 Refill(s) Humulin 2018-0 Yes 60 unit, [facility] 70/30 5-15 SUB-Q, l 18:44: QPM, 0 [place] 00 Refill(s) Humulin 2017-0 Yes 60 unit, [facility] 70/30 5-15 SUB-Q, l 18:44: QPM, 0 [place] 00 Refill(s) Humulin 2018-0 Yes 60 unit, [facility] 70/30 5-15 SUB-Q, l 18:44: QPM, 0 [place] 00 Refill(s) Humulin 2018-0 Yes 60 unit, [facility] 70/30 5-15 SUB-Q, l 18:44: QPM, 0 [place] 00 Refill(s) Humulin 2018-0 Yes 60 unit, [facility] 70/30 5-15 SUB-Q, l 18:44: QPM, 0 [place] 00 Refill(s) Humulin 2018-0 Yes 60 unit, [facility] 70/30 5-15 SUB-Q, l 18:44: QPM, 0 [place] 00 Refill(s) Humulin 2018-0 Yes 60 unit, [facility] 70/30 5-15 SUB-Q, l 18:44: QPM, 0 [place] 00 Refill(s) Humulin 2018-0 Yes 60 unit, [facility] 70/30 5-15 SUB-Q, l 18:44: QPM, 0 [place] 00 Refill(s) Humulin 2018-0 Yes 60 unit, [facility] 70/30 5-15 SUB-Q, l 18:44: QPM, 0 [place] 00 Refill(s) Humulin 2018-0 Yes 60 unit, [facility] 70/30 5-15 SUB-Q, l 18:44: QPM, 0 [place] 00 Refill(s) Humulin 2018-0 Yes 60 unit, [facility] 70/30 5-15 SUB-Q, l 18:44: QPM, 0 [place] 00 Refill(s) Humulin 2018-0 Yes 60 unit, [facility] 70/30 5-15 SUB-Q, l 18:44: QPM, 0 [place] 00 Refill(s) Humulin 2018-0 Yes 60 unit, [facility] 70/30 5-15 SUB-Q, l 18:44: QPM, 0 [place] 00 Refill(s) Humulin 2018-0 Yes 60 unit, [...] 70/30 5-15 SUB-Q, l 18:44: QPM, 0 [place] 00 Refill(s) Humulin 2018-0 Yes 60 unit, [facility] 70/30 5-15 SUB-Q, l 18:44: QPM, 0 [place] 00 Refill(s) Humulin 2018-0 Yes 60 unit, [...] 70/30 5-15 SUB-Q, l 18:44: QPM, 0 [place] 00 Refill(s) Humulin 2018-0 Yes 60 unit, [facility] 70/30 5-15 SUB-Q, l 18:44: QPM, 0 [place] 00 Refill(s) Humulin 2018-0 Yes 60 unit, [facility] 70/30 5-15 SUB-Q, l 18:44: QPM, 0 [place] 00 Refill(s) Humulin 2018-0 Yes 60 unit, [facility] 70/30 5-15 SUB-Q, l 18:44: QPM, 0 [place] 00 Refill(s) Humulin 2018-0 Yes 70 unit, [facility] 70/30 5-15 SUB-Q, l 18:43: QAM, 0 [place] 00 Refill(s) Humulin 2018-0 Yes 70 unit, [facility] 70/30 5-15 SUB-Q, l 18:43: QAM, 0 [place] 00 Refill(s) Humulin 2018-0 Yes 70 unit, [facility] 70/30 5-15 SUB-Q, l 18:43: QAM, 0 [place] 00 Refill(s) Humulin 2018-0 Yes 70 unit, [facility] 70/30 5-15 SUB-Q, l 18:43: QAM, 0 [place] 00 Refill(s) Humulin 2018-0 Yes 70 unit, [facility] 70/30 5-15 SUB-Q, l 18:43: QAM, 0 [place] 00 Refill(s) Humulin 2017-0 Yes 70 unit, [facility] 70/30 5-15 SUB-Q, l 18:43: QAM, 0 [place] 00 Refill(s) Humulin 2017-0 Yes 70 unit, [...] 70/30 5-15 SUB-Q, l 18:43: QAM, 0 [place] 00 Refill(s) Humulin 2017-0 Yes 70 unit, [facility] 70/30 5-15 SUB-Q, l 18:43: QAM, 0 [place] 00 Refill(s) Humulin 2017-0 Yes 70 unit, [facility] 70/30 5-15 SUB-Q, l 18:43: QAM, 0 [place] 00 Refill(s) Humulin 2018-0 Yes 70 unit, [facility] 70/30 5-15 SUB-Q, l 18:43: QAM, 0 [place] 00 Refill(s) Humulin 2017-0 Yes 70 unit, [facility] 70/30 5-15 SUB-Q, l 18:43: QAM, 0 [place] 00 Refill(s) Humulin 2017-0 Yes 70 unit, [facility] 70/30 5-15 SUB-Q, l 18:43: QAM, 0 [place] 00 Refill(s) Humulin 2018-0 Yes 70 unit, [facility] a 70/30 5-15 SUB-Q, l 18:43: QAM, 0 [place] 00 Refill(s) Humulin 2018-0 Yes 70 unit, [facility] a 70/30 5-15 SUB-Q, l 18:43: QAM, 0 [place] 00 Refill(s) Humulin 2018-0 Yes 70 unit, [facility] a 70/30 5-15 SUB-Q, l 18:43: QAM, 0 [place] 00 Refill(s) Humulin 2018-0 Yes 70 unit, [facility] a 70/30 5-15 SUB-Q, l 18:43: QAM, 0 [place] 00 Refill(s) Humulin 2018-0 Yes 70 unit, [facility] 70/30 5-15 SUB-Q, l 18:43: QAM, 0 [place] 00 Refill(s) Humulin 2017-0 Yes 70 unit, [facility] 70/30 5-15 SUB-Q, l 18:43: QAM, 0 [place] 00 Refill(s) Humulin 2017-0 Yes 70 unit, [facility] a 70/30 5-15 SUB-Q, l 18:43: QAM, 0 [place] 00 Refill(s) Humulin 2018-0 Yes 70 unit, [facility] 70/30 5-15 SUB-Q, l 18:43: QAM, 0 [place] 00 Refill(s) Humulin 2018-0 Yes 70 unit, [facility] a 70/30 5-15 SUB-Q, l 18:43: QAM, 0 [place] 00 Refill(s) Humulin 2018-0 Yes 70 unit, [...] 70/30 5-15 SUB-Q, l 18:43: QAM, 0 [place] 00 Refill(s) Humulin 2018-0 Yes 70 unit, Mem[facility] a 70/30 5-15 SUB-Q, l 18:43: QAM, 0 [place] 00 Refill(s) Humulin 2018-0 Yes 70 unit, [facility] a 70/30 5-15 SUB-Q, l 18:43: QAM, 0 [place] 00 Refill(s) Humulin 2018-0 Yes 70 unit, [facility] a 70/30 5-15 SUB-Q, l 18:43: QAM, 0 [place] 00 Refill(s) Humulin 2017-0 Yes 70 unit, Mem[facility] a 70/30 5-15 SUB-Q, l 18:43: QAM, 0 [place] 00 Refill(s) Humulin 2017-0 Yes 70 unit, [facility] 70/30 5-15 SUB-Q, l 18:43: QAM, 0 [place] 00 Refill(s) Humulin 2017-0 Yes 70 unit, [facility] a 70/30 5-15 SUB-Q, l 18:43: QAM, 0 [place] 00 Refill(s) Humulin 2017-0 Yes 70 unit, [facility] 70/30 5-15 SUB-Q, l 18:43: QAM, 0 [place] 00 Refill(s) Humulin 2017-0 Yes 70 unit, [facility] a 70/30 5-15 SUB-Q, l 18:43: QAM, 0 [place] 00 Refill(s) Humulin 2017-0 Yes 70 unit, [...] 70/30 5-15 SUB-Q, l 18:43: QAM, 0 [place] 00 Refill(s) Humulin 2017-0 Yes 70 unit, [facility] a 70/30 5-15 SUB-Q, l 18:43: QAM, 0 [place] 00 Refill(s) Humulin 2018-0 Yes 70 unit, [facility] a 70/30 5-15 SUB-Q, l 18:43: QAM, 0 [place] 00 Refill(s) Humulin 2018-0 Yes 70 unit, [facility] a 70/30 5-15 SUB-Q, l 18:43: QAM, 0 [place] 00 Refill(s) Humulin 2018-0 Yes 70 unit, [facility] a 70/30 5-15 SUB-Q, l 18:43: QAM, 0 [place] 00 Refill(s) Humulin 2018-0 Yes 70 unit, [facility] a 70/30 5-15 SUB-Q, l 18:43: QAM, 0 [place] 00 Refill(s) Humulin 2018-0 Yes 70 unit, [...] 70/30 5-15 SUB-Q, l 18:43: QAM, 0 [place] 00 Refill(s) Humulin 2018-0 Yes 70 unit, [facility] a 70/30 5-15 SUB-Q, l 18:43: QAM, 0 [place] 00 Refill(s) Humulin 2018-0 Yes 70 unit, [facility] a 70/30 5-15 SUB-Q, l 18:43: QAM, 0 [place] 00 Refill(s) Humulin 2018-0 Yes 70 unit, [facility] a 70/30 5-15 SUB-Q, l 18:43: QAM, 0 [place] 00 Refill(s) Humulin 2017-0 Yes 70 unit, [...] 70/30 5-15 SUB-Q, l 18:43: QAM, 0 [place] 00 Refill(s) albuterol 2015-11 Yes 2{puff} Inhale [...] for Wheezing or Shortness of Breath. Alprazolam 20160 Yes 2 mg = 1 [facility] 2 MG Oral 1-07 tab, PO, l Tablet 16:37: TID, 0 [place] [Xanax] 00 Refill(s) Alprazolam 20160 Yes 2 mg = 1 [facility] 2 MG Oral 1-07 tab, PO, l Tablet 16:37: TID, 0 [place] [Xanax] 00 Refill(s) Alprazolam 2016 Yes 2 mg = 1 [facility] 2 MG Oral 1-07 tab, PO, l Tablet 16:37: TID, 0 [place] [Xanax] 00 Refill(s) Alprazolam 2016 Yes 2 mg = 1 [facility] 2 MG Oral 1-07 tab, PO, l Tablet 16:37: TID, 0 [place] [Xanax] 00 Refill(s) Alprazolam 20160 Yes 2 mg = 1 [facility] 2 MG Oral 1-07 tab, PO, l Tablet 16:37: TID, 0 [place] [Xanax] 00 Refill(s) Alprazolam 20160 Yes 2 mg = 1 [facility] 2 MG Oral 1-07 tab, PO, l Tablet 16:37: TID, 0 [place] [Xanax] 00 Refill(s) Alprazolam 20160 Yes 2 mg = 1 [facility] 2 MG Oral 1-07 tab, PO, l Tablet 16:37: TID, 0 [place] [Xanax] 00 Refill(s) Alprazolam 20160 Yes 2 mg = 1 [facility] 2 MG Oral 1-07 tab, PO, l Tablet 16:37: TID, 0 [place] [Xanax] 00 Refill(s) Alprazolam 20160 Yes 2 mg = 1 [facility] 2 MG Oral 1-07 tab, PO, l Tablet 16:37: TID, 0 [place] [Xanax] 00 Refill(s) Alprazolam 20160 Yes 2 mg = 1 [facility] 2 MG Oral -07 tab, PO, l Tablet 16:37: TID, 0 [place] [Xanax] 00 Refill(s) Alprazolam 20160 Yes 2 mg = 1 [facility] 2 MG Oral -07 tab, PO, l Tablet 16:37: TID, 0 [place] [Xanax] 00 Refill(s) Alprazolam 20160 Yes 2 mg = 1 [facility] 2 MG Oral 11-07 tab, PO, l Tablet 16:37: TID, 0 [place] [Xanax] 00 Refill(s) Alprazolam 20160 Yes 2 mg = 1 [facility] 2 MG Oral -07 tab, PO, l Tablet 16:37: TID, 0 [place] [Xanax] 00 Refill(s) Alprazolam 2016 Yes 2 mg = 1 [facility] 2 MG Oral 11-07 tab, PO, l Tablet 16:37: TID, 0 [place] [Xanax] 00 Refill(s) Alprazolam 2016 Yes 2 mg = 1 [facility] 2 MG Oral 11-07 tab, PO, l Tablet 16:37: TID, 0 [place] [Xanax] 00 Refill(s) Alprazolam 20160 Yes 2 mg = 1 [facility] 2 MG Oral 11-07 tab, PO, l Tablet 16:37: TID, 0 [place] [Xanax] 00 Refill(s) Alprazolam 20160 Yes 2 mg = 1 [facility] 2 MG Oral 11-07 tab, PO, l Tablet 16:37: TID, 0 [place] [Xanax] 00 Refill(s) Alprazolam 20160 Yes 2 mg = 1 [facility] 2 MG Oral -07 tab, PO, l Tablet 16:37: TID, 0 [place] [Xanax] 00 Refill(s) Alprazolam 2016 Yes 2 mg = 1 [facility] 2 MG Oral -07 tab, PO, l Tablet 16:37: TID, 0 [place] [Xanax] 00 Refill(s) Alprazolam 0 Yes 2 mg = 1 Mem oria [...] tab, PO, l Tablet 16:37: TID, 0 [place] [Xanax] 00 Refill(s) Alprazolam 0 Yes 2 mg = 1 [facility] 2 MG Oral -07 tab, PO, l Tablet 16:37: TID, 0 [place] [Xanax] 00 Refill(s) Alprazolam 20160 Yes 2 mg = 1 [facility] 2 MG Oral 07 tab, PO, l Tablet 16:37: TID, 0 [place] [Xanax] 00 Refill(s) Alprazolam 20160 Yes 2 mg = 1 [facility] 2 MG Oral -07 tab, PO, l Tablet 16:37: TID, 0 [place] [Xanax] 00 Refill(s) Alprazolam 20160 Yes 2 mg = 1 [facility] 2 MG Oral -07 tab, PO, l Tablet 16:37: TID, 0 [place] [Xanax] 00 Refill(s) Alprazolam 0 Yes 2 mg = 1 [facility] 2 MG Oral -07 tab, PO, l Tablet 16:37: TID, 0 [place] [Xanax] 00 Refill(s) Alprazolam 20160 Yes 2 mg = 1 [facility] 2 MG Oral -07 tab, PO, l Tablet 16:37: TID, 0 [place] [Xanax] 00 Refill(s) Alprazolam 0 Yes 2 mg = 1 Mem [facility]ria [...] tab, PO, l Tablet 16:37: TID, 0 [place] [Xanax] 00 Refill(s) Alprazolam 20160 Yes 2 [...] tab, PO, l Tablet 16:37: TID, 0 [place] [Xanax] 00 Refill(s) Alprazolam 2016-0 Yes 2 mg = 1 [facility] 2 MG Oral 1-07 tab, PO, l Tablet 16:37: TID, 0 [place] [Xanax] 00 Refill(s) Alprazolam 20160 Yes 2 mg = 1 [facility] 2 MG Oral -07 tab, PO, l Tablet 16:37: TID, 0 [place] [Xanax] 00 Refill(s) Alprazolam 20160 Yes 2 mg = 1 [facility] 2 MG Oral -07 tab, PO, l Tablet 16:37: TID, 0 [place] [Xanax] 00 Refill(s) Alprazolam 20160 Yes 2 mg = 1 [facility] 2 MG Oral -07 tab, PO, l Tablet 16:37: TID, 0 [place] [Xanax] 00 Refill(s) Alprazolam 20160 Yes 2 [...] tab, PO, l Tablet 16:37: TID, 0 [place] [Xanax] 00 Refill(s) Alprazolam 20160 Yes 2 mg = 1 [facility] 2 MG Oral -07 tab, PO, l Tablet 16:37: TID, 0 [place] [Xanax] 00 Refill(s) Alprazolam 20160 Yes 2 mg = 1 [facility] 2 MG Oral -07 tab, PO, l Tablet 16:37: TID, 0 [place] [Xanax] 00 Refill(s) Alprazolam 20160 Yes 2 [...] tab, PO, l Tablet 16:37: TID, 0 [place] [Xanax] 00 Refill(s) Alprazolam Yes 2 mg = 1 [facility] 2 MG Oral 07 tab, PO, l Tablet 16:37: TID, 0 [place] [Xanax] 00 Refill(s) Alprazolam Yes 2 mg = 1 [facility] 2 MG Oral -07 tab, PO, l Tablet 16:37: TID, 0 [place] [Xanax] 00 Refill(s) Alprazolam Yes 2 mg = 1 [facility] 2 MG Oral -07 tab, PO, l Tablet 16:37: TID, 0 [place] [Xanax] 00 Refill(s) Nitroglycer Yes 0.4 mg [...] Codeine 16:21: Refill(s) [place] nn 00 Acetaminoph 2015-0 Yes 1 tab, PO, [facility] en 325 MG / 1-07 BID, 0 l Hydrocodone 16:19: Refill(s) [place] Bitartrate 00 10 MG Oral Tablet [[place] 10/325] Acetaminoph 0 Yes 1 tab, PO, [facility] 325 MG / 1-07 BID, 0 l Hydrocodone 16:19: Refill(s) [facility] [place] Bitartrate 00 10 MG Oral Tablet [[place] 10/325] Acetaminoph Yes 1 tab, PO, [facility] 325 MG / 1-07 BID, 0 l Hydrocodone 16:19: Refill(s) [place] Bitartrate 00 10 MG Oral Tablet [[place] 10/325] Acetaminoph Yes 1 tab, PO, [facility] 325 MG / 1-07 BID, 0 l Hydrocodone 16:19: Refill(s) [place] Bitartrate 00 10 MG Oral Tablet [[place] 10/325] Acetaminoph Yes 1 tab, PO, [facility] 325 MG / 1-07 BID, 0 l Hydrocodone 16:19: Refill(s) [place] Bitartrate 00 10 MG Oral Tablet [[place] 10/325] Acetaminoph Yes 1 tab, PO, [facility] 325 MG / 1-07 BID, 0 l Hydrocodone 16:19: Refill(s) [place] Bitartrate 00 10 MG Oral Tablet [[place] 10/325] Acetaminoph Yes 1 tab, PO, [facility] 325 MG / 1-07 BID, 0 l Hydrocodone 16:19: Refill(s) [place] Bitartrate 00 10 MG Oral Tablet [[place] 10/325] Acetaminoph Yes 1 tab, PO, [facility] 325 MG / 1-07 BID, 0 l Hydrocodone 16:19: Refill(s) [place] Bitartrate 00 10 MG Oral Tablet [[place] 10/325] Acetaminoph Yes 1 tab, PO, [facility] 325 MG / 1-07 BID, 0 l Hydrocodone 16:19: Refill(s) [place] Bitartrate 00 10 MG Oral Tablet [[place] 10/325] Acetaminoph Yes 1 tab, PO, [facility] 325 MG / 1-07 BID, 0 l Hydrocodone 16:19: Refill(s) [place] Bitartrate 00 10 MG Oral Tablet [[place] 10/325] Acetaminoph Yes 1 tab, PO, [facility] 325 MG / 1-07 BID, 0 l Hydrocodone 16:19: Refill(s) [place] Bitartrate 00 10 MG Oral Tablet [[place] 10/325] Acetaminoph 2016-0 Yes 1 tab, PO, [facility] 325 MG / 1-07 BID, 0 l Hydrocodone 16:19: Refill(s) [place] Bitartrate 00 10 MG Oral Tablet [[place] 10/325] Acetaminoph Yes 1 tab, PO, [facility] 325 MG / 1-07 BID, 0 l Hydrocodone 16:19: Refill(s) [place] Bitartrate 00 10 MG Oral Tablet [[place] 10/325] Acetaminoph Yes 1 tab, PO, [facility] 325 MG / 1-07 BID, 0 l Hydrocodone 16:19: Refill(s) [place] Bitartrate 00 10 MG Oral Tablet [[place] 10/325] Acetaminoph Yes 1 tab, PO, [facility] 325 MG / 1-07 BID, 0 l Hydrocodone 16:19: Refill(s) [place] Bitartrate 00 10 MG Oral Tablet [[place] 10/325] Acetaminoph Yes 1 tab, PO, [facility] 325 MG / 1-07 BID, 0 l Hydrocodone 16:19: Refill(s) [place] Bitartrate 00 10 MG Oral Tablet [[place] 10/325] Acetaminoph Yes 1 tab, PO, [facility] 325 MG / 1-07 BID, 0 l Hydrocodone 16:19: Refill(s) [place] Bitartrate 00 10 MG Oral Tablet [[place] 10/325] Acetaminoph Yes 1 tab, PO, [facility] 325 MG / 1-07 BID, 0 l Hydrocodone 16:19: Refill(s) [place] Bitartrate 00 10 MG Oral Tablet [[place] 10/325] Acetaminoph Yes 1 tab, PO, [facility] 325 MG / 1-07 BID, 0 l Hydrocodone 16:19: Refill(s) [place] Bitartrate 00 10 MG Oral Tablet [[place] 10/325] Acetaminoph Yes 1 tab, PO, [facility] 325 MG / 1-07 BID, 0 l Hydrocodone 16:19: Refill(s) [place] Bitartrate 00 10 MG Oral Tablet [[place] 10/325] Acetaminoph Yes 1 tab, PO, [facility] 325 MG / 1-07 BID, 0 l Hydrocodone 16:19: Refill(s) [place] Bitartrate 00 10 MG Oral Tablet [[place] 10/325] Acetaminoph Yes 1 tab, PO, [facility] 325 MG / 1-07 BID, 0 l Hydrocodone 16:19: Refill(s) [place] Bitartrate 00 10 MG Oral Tablet [[place] 10/325] Acetaminoph Yes 1 tab, PO, [facility] 325 MG / 1-07 BID, 0 l Hydrocodone 16:19: Refill(s) [place] Bitartrate 00 10 MG Oral Tablet [[place] 10/325] Acetaminoph Yes 1 tab, PO, [facility] 325 MG / 1-07 BID, 0 l Hydrocodone 16:19: Refill(s) [facility] [place] Bitartrate 00 10 MG Oral Tablet [[place] 10/325] Acetaminoph Yes 1 tab, PO, [facility] 325 MG / 1-07 BID, 0 l Hydrocodone 16:19: Refill(s) [facility] [place] Bitartrate 00 10 MG Oral Tablet [[place] 10/325] Acetaminoph Yes 1 tab, PO, [facility] 325 MG / 1-07 BID, 0 l Hydrocodone 16:19: Refill(s) [place] Bitartrate 00 10 MG Oral Tablet [[place] 10/325] Acetaminoph Yes 1 tab, PO, [facility] 325 MG / 1-07 BID, 0 l Hydrocodone 16:19: Refill(s) [place] Bitartrate 00 10 MG Oral Tablet [[place] 10/325] Acetaminoph Yes 1 tab, PO, [facility] 325 MG / 1-07 BID, 0 l Hydrocodone 16:19: Refill(s) [place] Bitartrate 00 10 MG Oral Tablet [[place] 10/325] Acetaminoph Yes 1 tab, PO, [facility] 325 MG / 1-07 BID, 0 l Hydrocodone 16:19: Refill(s) [place] Bitartrate 00 10 MG Oral Tablet [[place] 10/325] Acetaminoph Yes 1 tab, PO, [facility] 325 MG / 1-07 BID, 0 l Hydrocodone 16:19: Refill(s) [place] Bitartrate 00 10 MG Oral Tablet [[place] 10/325] Acetaminoph Yes 1 tab, PO, [facility] 325 MG / 1-07 BID, 0 l Hydrocodone 16:19: Refill(s) [place] Bitartrate 00 10 MG Oral Tablet [[place] 10/325] Acetaminoph Yes 1 tab, PO, [facility] 325 MG / 1-07 BID, 0 l Hydrocodone 16:19: Refill(s) [place] Bitartrate 00 10 MG Oral Tablet [[place] 10/325] Acetaminoph Yes 1 tab, PO, [facility] 325 MG / 1-07 BID, 0 l Hydrocodone 16:19: Refill(s) [place] Bitartrate 00 10 MG Oral Tablet [[place] 10/325] Acetaminoph Yes 1 tab, PO, [facility] 325 MG / 1-07 BID, 0 l Hydrocodone 16:19: Refill(s) [place] Bitartrate 00 10 MG Oral Tablet [[place] 10/325] Acetaminoph Yes 1 tab, PO, [facility] 325 MG / 1-07 BID, 0 l Hydrocodone 16:19: Refill(s) [place] Bitartrate 00 10 MG Oral Tablet [[place] 10/325] Acetaminoph Yes 1 tab, PO, [facility] 325 MG / 1-07 BID, 0 l Hydrocodone 16:19: Refill(s) [place] Bitartrate 00 10 MG Oral Tablet [[place] 10/325] Acetaminoph Yes 1 tab, PO, [facility] 325 MG / 1-07 BID, 0 l Hydrocodone 16:19: Refill(s) [place] Bitartrate 00 10 MG Oral Tablet [[place] 10/325] Acetaminoph Yes 1 tab, PO, [facility] 325 MG / 1-07 BID, 0 l Hydrocodone 16:19: Refill(s) [place] Bitartrate 00 10 MG Oral Tablet [[place] 10/325] Acetaminoph Yes 1 tab, PO, [facility] 325 MG / 1-07 BID, 0 l Hydrocodone 16:19: Refill(s) [place] Bitartrate 00 10 MG Oral Tablet [[place] 10/325] Acetaminoph Yes 1 tab, PO, [facility] 325 MG / 1-07 BID, 0 l Hydrocodone 16:19: Refill(s) [place] Bitartrate 00 10 MG Oral Tablet [[place] 10/325] Acetaminoph Yes 1 tab, PO, [facility] 325 MG / 1-07 BID, 0 l Hydrocodone 16:19: Refill(s) [place] Bitartrate 00 10 MG Oral Tablet [[place] 10/325] Acetaminoph Yes 1 tab, PO, [facility] 325 MG / 1-07 BID, 0 l Hydrocodone 16:19: Refill(s) [place] Bitartrate 00 10 MG Oral Tablet [[place] 10/325] Acetaminoph Yes 1 tab, PO, [facility] 325 MG / 1-07 BID, 0 l Hydrocodone 16:19: Refill(s) [place] Bitartrate 00 10 MG Oral Tablet [[place] 10/325] Acetaminoph Yes 1 tab, PO, [facility] 325 MG / 1-07 BID, 0 l Hydrocodone 16:19: Refill(s) [place] Bitartrate 00 10 MG Oral Tablet [[place] 10/325] Acetaminoph Yes 1 tab, PO, [facility] 325 MG / 1-07 BID, 0 l Hydrocodone 16:19: Refill(s) [place] Bitartrate 00 10 MG Oral Tablet [[place] 10/325] Acetaminoph Yes 1 tab, PO, [facility] en 325 MG / 1-07 BID, 0 l Hydrocodone 16:19: Refill(s) [place] Bitartrate 00 10 MG Oral Tablet [[place] 10/325] Acetaminoph Yes 1 tab, PO, [facility] en 325 MG / 1-07 BID, 0 l Hydrocodone 16:19: Refill(s) [place] Bitartrate 00 10 MG Oral Tablet [[place] 10/325] Acetaminoph Yes 1 tab, PO, [facility] en 325 MG / 1-07 BID, 0 l Hydrocodone 16:19: Refill(s) [place] Bitartrate 00 10 MG Oral Tablet [[place] 10/325] Acetaminoph Yes 1 tab, PO, [facility] en 325 MG / 1-07 BID, 0 l Hydrocodone 16:19: Refill(s) [place] Bitartrate 00 10 MG Oral Tablet [[place] 10/325] Acetaminoph Yes 1 tab, PO, [facility] en 325 MG / 1-07 BID, 0 l Hydrocodone 16:19: Refill(s) [facility] [place] Bitartrate 00 10 MG Oral Tablet [[place] 10/325] Acetaminoph Yes 1 tab, PO, [facility] en 325 MG / 1-07 BID, 0 l Hydrocodone 16:19: Refill(s) [place] Bitartrate 00 10 MG Oral Tablet [[place] 10/325] Acetaminoph Yes 1 tab, PO, [facility] en 325 MG / 1-07 BID, 0 l Hydrocodone 16:19: Refill(s) [place] Bitartrate 00 10 MG Oral Tablet [[place] 10/325] Acetaminoph Yes 1 tab, PO, [facility] en 325 MG / 1-07 BID, 0 l Hydrocodone 16:19: Refill(s) [place] Bitartrate 00 10 MG Oral Tablet [[place] 10/325] Acetaminoph Yes 1 tab, PO, [facility] en 325 MG / 1-07 BID, 0 l Hydrocodone 16:19: Refill(s) [place] Bitartrate 00 10 MG Oral Tablet [[place] 10/325] Acetaminoph Yes 1 tab, PO, [facility] en 325 MG / 1-07 BID, 0 l Hydrocodone 16:19: Refill(s) [place] Bitartrate 00 10 MG Oral Tablet [[place] 10/325] Acetaminoph Yes 1 tab, PO, [facility] en 325 MG / 1-07 BID, 0 l Hydrocodone 16:19: Refill(s) [place] Bitartrate 00 10 MG Oral Tablet [[place] 10/325] Acetaminoph Yes 1 tab, PO, [facility] en 325 MG / 1-07 BID, 0 l Hydrocodone 16:19: Refill(s) [facility] [place] Bitartrate 00 10 MG Oral Tablet [[place] 10/325] Acetaminoph 2016-0 Yes 1 tab, PO, [facility] 325 MG / 11-07 BID, 0 l Hydrocodone 16:19: Refill(s) [place] Bitartrate 00 10 MG Oral Tablet [[place] 10/325] tizanidine 0 Yes 4 mg = 1 [facility] o[facility] 4 MG Oral 11-07 cap, PO, l Capsule 16:18: BID, # 90 [place] nn [Zanaflex] 00 cap, 0 Refill(s) Zolpidem 20160 Yes 5 mg = 1 [facility] tartrate 5 - tab, PO, l MG Oral 16:18: Bedtime, 0 [facility] fl[place] Tablet 00 Refill(s) [Ambien] tizanidine 0 Yes 4 mg = 1 [facility] 4 MG Oral 11-07 cap, PO, l Capsule 16:18: BID, # 90 [place] [Zanaflex] 00 cap, 0 Refill(s) Zolpidem 2016-0 Yes 5 mg = 1 [facility] tartrate 5 11-07 tab, PO, l MG Oral 16:18: Bedtime, 0 [place] Tablet 00 Refill(s) [Ambien] tizanidine 0 Yes 4 mg = 1 [facility] 4 MG Oral 11-07 cap, PO, l Capsule 16:18: BID, # 90 [place] [Zanaflex] 00 cap, 0 Refill(s) Zolpidem 2016-0 Yes 5 mg = 1 [facility] tartrate 5 11-07 tab, PO, l MG Oral 16:18: Bedtime, 0 [place] Tablet 00 Refill(s) [Ambien] tizanidine 20160 Yes 4 mg = 1 [facility] 4 MG Oral 07 cap, PO, l Capsule 16:18: BID, # 90 [place] [Zanaflex] 00 cap, 0 Refill(s) Zolpidem 2016-0 Yes 5 mg = 1 [facility] tartrate 5 -07 tab, PO, l MG Oral 16:18: Bedtime, 0 [place] Tablet 00 Refill(s) [Ambien] tizanidine 20160 Yes 4 mg = 1 Mem oria [...] l MG Oral 16:18: Bedtime, 0 [place] fl[place] Tablet 00 Refill(s) [Ambien] tizanidine 2016-0 Yes [...] PO, l Capsule 16:18: BID, # 90 [place] [Zanaflex] 00 cap, 0 Refill(s) Zolpidem [...] cap, PO, l capsule 16:17: BID, 0 [place] 00 Refill(s) cephalexin 2016-0 Yes 500 mg = 1 M emoria 500 mg oral -07 cap, PO, l capsule 16:17: BID, 0 [place] 00 Refill(s) cephalexin 2016-0 Yes 500 mg = 1 M em[facility] 500 mg oral 1-07 cap, PO, l capsule 16:17: BID, 0 [place] 00 Refill(s) cephalexin 2016-0 Yes 500 mg = 1 M em[facility] 500 mg oral 1-07 cap, PO, l capsule 16:17: BID, 0 [place] 00 Refill(s) cephalexin 2016-0 Yes 500 mg = 1 M em[facility] 500 mg oral 1-07 cap, PO, l capsule 16:17: BID, 0 [place] 00 Refill(s) cephalexin 2016-0 Yes 500 mg = 1 M em[facility] 500 mg oral 1-07 cap, PO, l capsule 16:17: BID, 0 [place] 00 Refill(s) cephalexin 2016-0 Yes 500 mg [...] cap, PO, l capsule 16:17: BID, 0 [place] 00 Refill(s) cephalexin 2016-0 Yes 500 mg = 1 M emoria 500 mg oral 1-07 cap, PO, l capsule 16:17: BID, 0 [place] 00 Refill(s) cephalexin 2016-0 Yes 500 mg [...] cap, PO, l capsule 16:17: BID, 0 [place] 00 Refill(s) cephalexin 2016-0 Yes 500 mg [...] cap, PO, l capsule 16:17: BID, 0 [place] 00 Refill(s) cephalexin 2016-0 Yes 500 mg = 1 M emoria 500 mg oral 1-07 cap, PO, l capsule 16:17: BID, 0 [place] 00 Refill(s) cephalexin 2016-0 Yes 500 mg = 1 M em[facility] 500 mg oral 1-07 cap, PO, l capsule 16:17: BID, 0 [place] 00 Refill(s) cephalexin 2016-0 Yes 500 mg = 1 M emoria 500 mg oral 1-07 cap, PO, l capsule 16:17: BID, 0 [place] 00 Refill(s) cephalexin 2016-0 Yes 500 mg = 1 M em[facility] 500 mg oral 1-07 cap, PO, l capsule 16:17: BID, 0 [place] 00 Refill(s) cephalexin 2016-0 Yes 500 mg = 1 M emoria 500 mg oral 1-07 cap, PO, l capsule 16:17: BID, 0 [place] 00 Refill(s) cephalexin 2016-0 Yes 500 mg = 1 M em[facility] 500 mg oral 1-07 cap, PO, l capsule 16:17: BID, 0 [place] 00 Refill(s) cephalexin 2016-0 Yes 500 mg = 1 M emoria 500 mg oral 1-07 cap, PO, l capsule 16:17: BID, 0 [place] 00 Refill(s) cephalexin 2016-0 Yes 500 mg = 1 M em[facility] 500 mg oral 1-07 cap, PO, l capsule 16:17: BID, 0 [place] 00 Refill(s) cephalexin 2016-0 Yes 500 mg = 1 M emoria 500 mg oral 1-07 cap, PO, l capsule 16:17: BID, 0 [place] 00 Refill(s) cephalexin 2016-0 Yes 500 mg = 1 M em[facility] 500 mg oral 1-07 cap, PO, l capsule 16:17: BID, 0 [place] 00 Refill(s) cephalexin 2016-0 Yes 500 mg = 1 M em[place] 500 mg oral 1-07 cap, PO, l capsule 16:17: BID, 0 [place] 00 Refill(s) cephalexin 2016-0 Yes 500 mg [...] cap, PO, l capsule 16:17: BID, 0 [place] 00 Refill(s) cephalexin 2015-0 Yes 500 mg = 1 M em[facility] 500 mg oral 1-07 cap, PO, l capsule 16:17: BID, 0 [place] 00 Refill(s) cephalexin 2016-0 Yes 500 mg = 1 M emoria 500 mg oral 1-07 cap, PO, l capsule 16:17: BID, 0 [place] 00 Refill(s) cephalexin 2016-0 Yes 500 mg [...] cap, PO, l capsule 16:17: BID, 0 [place] 00 Refill(s) cephalexin 2016-0 Yes 500 mg = 1 M emoria 500 mg oral 1-07 cap, PO, l capsule 16:17: BID, 0 [place] 00 Refill(s) cephalexin 2016-0 Yes 500 mg = 1 M em[place] 500 mg oral 1-07 cap, PO, l capsule 16:17: BID, 0 [place] 00 Refill(s) cephalexin 2016-0 Yes 500 mg [...] cap, PO, l capsule 16:17: BID, 0 [place] 00 Refill(s) cephalexin 2015-0 Yes 500 mg = 1 M em[place] 500 mg oral 1-07 cap, PO, l capsule 16:17: BID, 0 [place] 00 Refill(s) cephalexin 2015-0 Yes 500 mg = 1 M em[place] 500 mg oral 1-07 cap, PO, l capsule 16:17: BID, 0 [place] 00 Refill(s) cephalexin 2015-0 Yes 500 mg = 1 M em[place] 500 mg oral 1-07 cap, PO, l capsule 16:17: BID, 0 [place] 00 Refill(s) cephalexin 2015-0 Yes 500 mg = 1 M em[place] 500 mg oral 1-07 cap, PO, l capsule 16:17: BID, 0 [place] 00 Refill(s) cephalexin 2016-0 Yes 500 mg = 1 M emoria 500 mg oral 1-07 cap, PO, l capsule 16:17: BID, 0 [place] 00 Refill(s) cephalexin 2015-0 Yes 500 mg = 1 M [place] 500 mg oral 1-07 cap, PO, l capsule 16:17: BID, 0 [place] 00 Refill(s) cephalexin 2016-0 Yes 500 mg = 1 M em[facility] 500 mg oral 1-07 cap, PO, l capsule 16:17: BID, 0 [place] 00 Refill(s) cephalexin 2016-0 Yes 500 mg = 1 M em[facility] 500 mg oral 1-07 cap, PO, l capsule 16:17: BID, 0 [place] 00 Refill(s) cephalexin 2016-0 Yes 500 mg = 1 M em[facility] 500 mg oral 1-07 cap, PO, l capsule 16:17: BID, 0 [place] 00 Refill(s) cephalexin 2016-0 Yes 500 mg = 1 M em[facility] 500 mg oral 1-07 cap, PO, l capsule 16:17: BID, 0 [place] 00 Refill(s) cephalexin 2016-0 Yes 500 mg = 1 M em[place] 500 mg oral 1-07 cap, PO, l capsule 16:17: BID, 0 [place] 00 Refill(s) cephalexin 2016-0 Yes 500 mg = 1 M em[place] 500 mg oral 1-07 cap, PO, l capsule 16:17: BID, 0 [place] 00 Refill(s) cephalexin 2016-0 Yes 500 mg = 1 M em[facility] 500 mg oral 1-07 cap, PO, l capsule 16:17: BID, 0 [place] 00 Refill(s) cephalexin 2016-0 Yes 500 mg = 1 M em[place] 500 mg oral 1-07 cap, PO, l capsule 16:17: BID, 0 [place] 00 Refill(s) cephalexin 2015-0 Yes 500 mg = 1 M em[place] 500 mg oral 1-07 cap, PO, l capsule 16:17: BID, 0 [place] 00 Refill(s) cephalexin 2015-0 Yes 500 mg = 1 M em[facility] 500 mg oral 1-07 cap, PO, l capsule 16:17: BID, 0 [place] 00 Refill(s) duloxetine 2015-0 Yes 60 mg = 1 Me mor[place] 60 MG 1-07 cap, PO, l Enteric 16:16: Daily, 0 [place] 00 Refill(s) Capsule [Cymbalta] atorvastati 2016-0 Yes 40 mg = 1 M emoria n 40 MG 1-07 tab, PO, l Oral Tablet 16:16: Bedtime, 0 [place] [Lipitor] 00 Refill(s) duloxetine 2016-0 Yes 60 mg = 1 Me [place] 60 MG 1-07 cap, PO, l Enteric 16:16: Daily, 0 [place] 00 Refill(s) Capsule [Cymbalta] atorvastati 2016-0 Yes 40 mg = 1 M emoria n 40 MG 1-07 tab, PO, l Oral Tablet 16:16: Bedtime, 0 [place] [Lipitor] 00 Refill(s) duloxetine Yes 60 mg = 1 Me [place] 60 MG 1-07 cap, PO, l Enteric 16:16: Daily, 0 [place] 00 Refill(s) Capsule [Cymbalta] atorvastati Yes 40 mg = 1 M emoria n 40 MG 1-07 tab, PO, l Oral Tablet 16:16: Bedtime, 0 [place] [Lipitor] 00 Refill(s) duloxetine Yes 60 mg = 1 Me [place] 60 MG 1-07 cap, PO, l Enteric 16:16: Daily, 0 [place] 00 Refill(s) Capsule [Cymbalta] atorvastati Yes 40 mg = 1 M emoria n 40 MG 1-07 tab, PO, l Oral Tablet 16:16: Bedtime, 0 [place] [Lipitor] 00 Refill(s) duloxetine Yes 60 mg = 1 Me [place] 60 MG 1-07 cap, PO, l Enteric 16:16: Daily, 0 [place] 00 Refill(s) Capsule [Cymbalta] atorvastati Yes 40 mg = 1 M emoria n 40 MG 1-07 tab, PO, l Oral Tablet 16:16: Bedtime, 0 [place] [Lipitor] 00 Refill(s) duloxetine Yes 60 mg = 1 Me [place] 60 MG 1-07 cap, PO, l Enteric 16:16: Daily, 0 [place] 00 Refill(s) Capsule [Cymbalta] atorvastati Yes 40 mg = 1 M emoria n 40 MG 1-07 tab, PO, l Oral Tablet 16:16: Bedtime, 0 [place] [Lipitor] 00 Refill(s) duloxetine Yes 60 mg [...] PO, l Oral Tablet 16:16: Bedtime, 0 [place] [Lipitor] 00 Refill(s) duloxetine Yes 60 mg [...] PO, l Oral Tablet 16:16: Bedtime, 0 [place] [Lipitor] 00 Refill(s) duloxetine Yes 60 mg = 1 Me [place] 60 MG 1-07 cap, PO, l Enteric 16:16: Daily, 0 [place] 00 Refill(s) Capsule [Cymbalta] atorvastati Yes 40 mg = 1 M emoria n 40 MG 1-07 tab, PO, l Oral Tablet 16:16: Bedtime, 0 [place] [Lipitor] 00 Refill(s) duloxetine Yes 60 mg = 1 Me [place] 60 MG 1-07 cap, PO, l Enteric 16:16: Daily, 0 [place] 00 Refill(s) Capsule [Cymbalta] atorvastati Yes 40 mg = 1 M [place] n 40 MG 1-07 tab, PO, l Oral Tablet 16:16: Bedtime, 0 [place] [Lipitor] 00 Refill(s) duloxetine Yes 60 mg = 1 Me [place] 60 MG 1-07 cap, PO, l Enteric 16:16: Daily, 0 [place] 00 Refill(s) Capsule [Cymbalta] atorvastati Yes 40 mg = 1 M em[place] n 40 MG 1-07 tab, PO, l Oral Tablet 16:16: Bedtime, 0 [place] [Lipitor] 00 Refill(s) duloxetine Yes 60 mg = 1 Me [place] 60 MG 1-07 cap, PO, l Enteric 16:16: Daily, 0 [place] 00 Refill(s) Capsule [Cymbalta] atorvastati Yes 40 mg = 1 M [place] n 40 MG 1-07 tab, PO, l Oral Tablet 16:16: Bedtime, 0 [place] [Lipitor] 00 Refill(s) duloxetine Yes 60 mg = 1 [place] 60 MG 1-07 cap, PO, l Enteric 16:16: Daily, 0 [place] 00 Refill(s) Capsule [Cymbalta] atorvastati Yes 40 mg = 1 M [place] n 40 MG 1-07 tab, PO, l Oral Tablet 16:16: Bedtime, 0 [place] [Lipitor] 00 Refill(s) duloxetine Yes 60 mg = 1 Me [place] 60 MG 1-07 cap, PO, l Enteric 16:16: Daily, 0 [place] 00 Refill(s) Capsule [Cymbalta] atorvastati Yes 40 mg = 1 M [place] n 40 MG 1-07 tab, PO, l Oral Tablet 16:16: Bedtime, 0 [place] [Lipitor] 00 Refill(s) duloxetine Yes 60 mg [...] PO, l Oral Tablet 16:16: Bedtime, 0 [place] [Lipitor] 00 Refill(s) duloxetine Yes 60 mg = 1 Me moria 60 MG 1-07 cap, PO, l Enteric 16:16: Daily, 0 [place] Coated 00 Refill(s) Capsule [Cymbalta] atorvastati Yes 40 mg = 1 M emoria n 40 MG 1-07 tab, PO, l Oral Tablet 16:16: Bedtime, 0 [place] [Lipitor] 00 Refill(s) duloxetine Yes 60 mg = 1 Me [facility] 60 MG 1-07 cap, PO, l Enteric 16:16: Daily, 0 [place] Coated 00 Refill(s) Capsule [Cymbalta] atorvastati Yes 40 mg = 1 M emoria n 40 MG 1-07 tab, PO, l Oral Tablet 16:16: Bedtime, 0 [place] [Lipitor] 00 Refill(s) duloxetine Yes 60 mg [...] PO, l Oral Tablet 16:16: Bedtime, 0 [place] [Lipitor] 00 Refill(s) duloxetine Yes 60 mg = 1 Me [facility] 60 MG 1-07 cap, PO, l Enteric 16:16: Daily, 0 [place] Coated 00 Refill(s) Capsule [Cymbalta] atorvastati Yes 40 mg = 1 M emoria n 40 MG 1-07 tab, PO, l Oral Tablet 16:16: Bedtime, 0 [place] [Lipitor] 00 Refill(s) duloxetine Yes 60 mg = 1 Me [facility] 60 MG 1-07 cap, PO, l Enteric 16:16: Daily, 0 [place] Coated 00 Refill(s) Capsule [Cymbalta] atorvastati Yes 40 mg = 1 M emoria n 40 MG 1-07 tab, PO, l Oral Tablet 16:16: Bedtime, 0 [place] [Lipitor] 00 Refill(s) duloxetine Yes 60 mg [...] PO, l Oral Tablet 16:16: Bedtime, 0 [place] [Lipitor] 00 Refill(s) duloxetine Yes 60 mg [...] PO, l Oral Tablet 16:16: Bedtime, 0 [place] [Lipitor] 00 Refill(s) duloxetine Yes 60 mg = 1 Me [facility] 60 MG 1-07 cap, PO, l Enteric 16:16: Daily, 0 [place] Coated 00 Refill(s) Capsule [Cymbalta] atorvastati Yes 40 mg = 1 M emoria n 40 MG 1-07 tab, PO, l Oral Tablet 16:16: Bedtime, 0 [place] [Lipitor] 00 Refill(s) duloxetine Yes 60 mg = 1 Me [facility] 60 MG 1-07 cap, PO, l Enteric 16:16: Daily, 0 [place] Coated 00 Refill(s) Capsule [Cymbalta] atorvastati Yes 40 mg = 1 M [facility] n 40 MG 1-07 tab, PO, l Oral Tablet 16:16: Bedtime, 0 [place] [Lipitor] 00 Refill(s) duloxetine Yes 60 mg [...] PO, l Oral Tablet 16:16: Bedtime, 0 [place] [Lipitor] 00 Refill(s) duloxetine Yes 60 mg [...] PO, l Oral Tablet 16:16: Bedtime, 0 [place] [Lipitor] 00 Refill(s) duloxetine Yes 60 mg = 1 Me [place] 60 MG 1-07 cap, PO, l Enteric 16:16: Daily, 0 [place] Coated 00 Refill(s) Capsule [Cymbalta] atorvastati Yes 40 mg = 1 M em[facility] n 40 MG 1-07 tab, PO, l Oral Tablet 16:16: Bedtime, 0 [place] [Lipitor] 00 Refill(s) duloxetine Yes 60 mg [...] PO, l Oral Tablet 16:16: Bedtime, 0 [place] [Lipitor] 00 Refill(s) duloxetine Yes 60 mg = 1 Me [facility] 60 MG 1-07 cap, PO, l Enteric 16:16: Daily, 0 [place] Coated 00 Refill(s) Capsule [Cymbalta] atorvastati Yes 40 mg = 1 M [facility] n 40 MG 1-07 tab, PO, l Oral Tablet 16:16: Bedtime, 0 [place] [Lipitor] 00 Refill(s) duloxetine Yes 60 mg [...] PO, l Oral Tablet 16:16: Bedtime, 0 [place] [Lipitor] 00 Refill(s) duloxetine Yes 60 mg [...] PO, l Oral Tablet 16:16: Bedtime, 0 [place] [Lipitor] 00 Refill(s) duloxetine Yes 60 mg [...] PO, l Oral Tablet 16:16: Bedtime, 0 [place] [Lipitor] 00 Refill(s) duloxetine Yes 60 mg [...] PO, l Oral Tablet 16:16: Bedtime, 0 [place] [Lipitor] 00 Refill(s) duloxetine Yes 60 mg = 1 Me [place] 60 MG 1-07 cap, PO, l Enteric 16:16: Daily, 0 [place] Coated 00 Refill(s) Capsule [Cymbalta] atorvastati Yes 40 mg = 1 M em[facility] n 40 MG 1-07 tab, PO, l Oral Tablet 16:16: Bedtime, 0 [place] [Lipitor] 00 Refill(s) duloxetine Yes 60 mg = 1 Me [facility] 60 MG 1-07 cap, PO, l Enteric 16:16: Daily, 0 [place] Coated 00 Refill(s) Capsule [Cymbalta] atorvastati Yes 40 mg = 1 M [facility] n 40 MG 1-07 tab, PO, l Oral Tablet 16:16: Bedtime, 0 [place] [Lipitor] 00 Refill(s) duloxetine Yes 60 mg = 1 Me [facility] 60 MG 1-07 cap, PO, l Enteric 16:16: Daily, 0 [place] Coated 00 Refill(s) Capsule [Cymbalta] atorvastati Yes 40 mg = 1 M [facility] n 40 MG 1-07 tab, PO, l Oral Tablet 16:16: Bedtime, 0 [place] [Lipitor] 00 Refill(s) promethazin Yes 25 mg [...] QID-Before [place] nn Meals, 0 Refill(s) promethazin 0 Yes 25 [...] QID-Before [place] nn Meals, 0 Refill(s) promethazin 2015- Yes 25 mg = 1 M emoria [...] QID-Before [place] 00 Meals, 0 Refill(s) promethazin Yes 25 [...] 16:15: QID-Before [place] Meals, 0 Refill(s) promethazin 2015- Yes 25 mg = 1 M emoria [...] QID-Before [place] 00 Meals, 0 Refill(s) promethazin Yes 25 [...] tab, PO, l Tablet 16:14: PRN, 0 [place] [Colcrys] 00 Refill(s) Colchicine Yes 0.6 mg = 1 M emoria 0.6 MG Oral 1-07 tab, PO, l Tablet 16:14: PRN, 0 [place] [Colcrys] 00 Refill(s) Colchicine Yes 0.6 mg [...] tab, PO, l Tablet 16:14: PRN, 0 [place] [Colcrys] 00 Refill(s) Colchicine 2016-0 Yes 0.6 [...] tab, PO, l Tablet 16:14: PRN, 0 [place] [Colcrys] 00 Refill(s) Colchicine 2016-0 Yes 0.6 [...] tab, PO, l Tablet 16:14: PRN, 0 [place] [Colcrys] 00 Refill(s) Colchicine 2016-0 Yes 0.6 [...] tab, PO, l Tablet 16:14: PRN, 0 [place] [Colcrys] 00 Refill(s) Colchicine 2016-0 Yes 0.6 mg = 1 M emoria 0.6 MG Oral 1-07 tab, PO, l Tablet 16:14: PRN, 0 [place] [Colcrys] 00 Refill(s) Colchicine 2016-0 Yes 0.6 mg = 1 M emoria 0.6 MG Oral 1-07 tab, PO, l Tablet 16:14: PRN, 0 [place] [Colcrys] 00 Refill(s) Colchicine 2016-0 Yes 0.6 mg = 1 M emoria 0.6 MG Oral 1-07 tab, PO, l Tablet 16:14: PRN, 0 [place] [Colcrys] 00 Refill(s) Colchicine 2016-0 Yes 0.6 mg = 1 M emoria 0.6 MG Oral 1-07 tab, PO, l Tablet 16:14: PRN, 0 [place] [Colcrys] 00 Refill(s) Colchicine 2016-0 Yes 0.6 mg = 1 M emoria 0.6 MG Oral 1-07 tab, PO, l Tablet 16:14: PRN, 0 [place] [Colcrys] 00 Refill(s) Colchicine 2016-0 Yes 0.6 mg = 1 M emoria 0.6 MG Oral 1-07 tab, PO, l Tablet 16:14: PRN, 0 [place] [Colcrys] 00 Refill(s) Colchicine 2016-0 Yes 0.6 mg = 1 M emoria 0.6 MG Oral 1-07 tab, PO, l Tablet 16:14: PRN, 0 [place] [Colcrys] 00 Refill(s) Colchicine 2016-0 Yes 0.6 mg = 1 M emoria 0.6 MG Oral 1-07 tab, PO, l Tablet 16:14: PRN, 0 [place] [Colcrys] 00 Refill(s) Colchicine 2016-0 Yes 0.6 mg = 1 M emoria 0.6 MG Oral 1-07 tab, PO, l Tablet 16:14: PRN, 0 [place] [Colcrys] 00 Refill(s) Colchicine 2016-0 Yes 0.6 [...] tab, PO, l Tablet 16:14: PRN, 0 [place] [Colcrys] 00 Refill(s) Colchicine 2016-0 Yes 0.6 mg = 1 M emoria 0.6 MG Oral 1-07 tab, PO, l Tablet 16:14: PRN, 0 [place] [Colcrys] 00 Refill(s) Colchicine 2016-0 Yes 0.6 mg = 1 M emoria 0.6 MG Oral 1-07 tab, PO, l Tablet 16:14: PRN, 0 [place] [Colcrys] 00 Refill(s) Colchicine 2016-0 Yes 0.6 mg = 1 M emoria 0.6 MG Oral 1-07 tab, PO, l Tablet 16:14: PRN, 0 [place] [Colcrys] 00 Refill(s) Colchicine 2016-0 Yes 0.6 mg = 1 M emoria 0.6 MG Oral 1-07 tab, PO, l Tablet 16:14: PRN, 0 [place] [Colcrys] 00 Refill(s) Colchicine 2016-0 Yes 0.6 mg = 1 M emoria 0.6 MG Oral 1-07 tab, PO, l Tablet 16:14: PRN, 0 [place] [Colcrys] 00 Refill(s) Colchicine 2016-0 Yes 0.6 mg = 1 M emoria 0.6 MG Oral 1-07 tab, PO, l Tablet 16:14: PRN, 0 [place] [Colcrys] 00 Refill(s) Colchicine 2016-0 Yes 0.6 [...] tab, PO, l Tablet 16:14: PRN, 0 [place] [Colcrys] 00 Refill(s) Colchicine 2016-0 Yes 0.6 mg = 1 M emoria 0.6 MG Oral 1-07 tab, PO, l Tablet 16:14: PRN, 0 [place] [Colcrys] 00 Refill(s) Colchicine 2016-0 Yes 0.6 [...] tab, PO, l Tablet 16:14: PRN, 0 [place] [Colcrys] 00 Refill(s) Colchicine 2016- Yes 0.6 mg = 1 M emoria 0.6 MG Oral 1-07 tab, PO, l Tablet 16:14: PRN, 0 [place] [Colcrys] 00 Refill(s) Colchicine 2015- Yes 0.6 mg = 1 M emoria 0.6 MG Oral 1-07 tab, PO, l Tablet 16:14: PRN, 0 [place] [Colcrys] 00 Refill(s) allopurinol Yes 300 mg = 1 [facility] 300 mg oral 1-07 tab, PO, l tablet 16:13: Daily, 0 [place] 00 Refill(s) allopurinol Yes 300 mg = 1 [facility] 300 mg oral 1-07 tab, PO, l tablet 16:13: Daily, 0 [place] 00 Refill(s) allopurinol Yes 300 mg = 1 [facility] 300 mg oral 1-07 tab, PO, l tablet 16:13: Daily, 0 [place] 00 Refill(s) allopurinol Yes 300 mg = 1 [facility] 300 mg oral 1-07 tab, PO, l tablet 16:13: Daily, 0 [place] 00 Refill(s) allopurinol Yes 300 mg = 1 [facility] 300 mg oral 1-07 tab, PO, l tablet 16:13: Daily, 0 [place] 00 Refill(s) allopurinol Yes 300 mg = 1 [facility] 300 mg oral 1-07 tab, PO, l tablet 16:13: Daily, 0 [place] 00 Refill(s) allopurinol Yes 300 mg = 1 [facility] 300 mg oral 1-07 tab, PO, l tablet 16:13: Daily, 0 [place] 00 Refill(s) allopurinol Yes 300 mg = 1 [facility] 300 mg oral 1-07 tab, PO, l tablet 16:13: Daily, 0 [place] 00 Refill(s) allopurinol Yes 300 mg = 1 [facility] 300 mg oral 1-07 tab, PO, l tablet 16:13: Daily, 0 [place] 00 Refill(s) allopurinol Yes 300 mg = 1 [facility] 300 mg oral 1-07 tab, PO, l tablet 16:13: Daily, 0 [place] 00 Refill(s) allopurinol Yes 300 mg = 1 [facility] 300 mg oral 1-07 tab, PO, l tablet 16:13: Daily, 0 [place] 00 Refill(s) allopurinol Yes 300 mg = 1 [facility] 300 mg oral 1-07 tab, PO, l tablet 16:13: Daily, 0 [place] 00 Refill(s) allopurinol Yes 300 mg = 1 [facility] 300 mg oral 1-07 tab, PO, l tablet 16:13: Daily, 0 [place] 00 Refill(s) allopurinol Yes 300 mg = 1 [facility] 300 mg oral 1-07 tab, PO, l tablet 16:13: Daily, 0 [place] 00 Refill(s) allopurinol Yes 300 mg = [...] tab, PO, l tablet 16:13: Daily, 0 [place] 00 Refill(s) allopurinol 0 Yes 300 mg [...] tab, PO, l tablet 16:13: Daily, 0 [place] 00 Refill(s) allopurinol Yes 300 mg = 1 [facility] 300 mg oral 1-07 tab, PO, l tablet 16:13: Daily, 0 [place] 00 Refill(s) allopurinol Yes 300 mg = 1 [facility] 300 mg oral 1-07 tab, PO, l tablet 16:13: Daily, 0 [place] 00 Refill(s) allopurinol Yes 300 mg = 1 [facility] 300 mg oral 1-07 tab, PO, l tablet 16:13: Daily, 0 [place] 00 Refill(s) allopurinol Yes 300 mg = 1 [facility] 300 mg oral 1-07 tab, PO, l tablet 16:13: Daily, 0 [place] 00 Refill(s) allopurinol Yes 300 mg = 1 [facility] 300 mg oral 1-07 tab, PO, l tablet 16:13: Daily, 0 [place] 00 Refill(s) allopurinol Yes 300 mg = 1 [facility] 300 mg oral 1-07 tab, PO, l tablet 16:13: Daily, 0 [place] 00 Refill(s) allopurinol Yes 300 mg = 1 [facility] 300 mg oral 1-07 tab, PO, l tablet 16:13: Daily, 0 [place] 00 Refill(s) allopurinol Yes 300 mg = 1 [facility] 300 mg oral 1-07 tab, PO, l tablet 16:13: Daily, 0 [place] 00 Refill(s) allopurinol Yes 300 mg = 1 [facility] 300 mg oral 1-07 tab, PO, l tablet 16:13: Daily, 0 [place] 00 Refill(s) allopurinol Yes 300 mg = 1 [facility] 300 mg oral 1-07 tab, PO, l tablet 16:13: Daily, 0 [place] 00 Refill(s) allopurinol Yes 300 mg = [...] tab, PO, l tablet 16:13: Daily, 0 [place] 00 Refill(s) allopurinol Yes 300 mg = 1 [facility] 300 mg oral 1-07 tab, PO, l tablet 16:13: Daily, 0 [place] 00 Refill(s) allopurinol Yes 300 mg = 1 [facility] 300 mg oral 1-07 tab, PO, l tablet 16:13: Daily, 0 [place] 00 Refill(s) allopurinol Yes 300 mg = [...] tab, PO, l tablet 16:13: Daily, 0 [place] 00 Refill(s) allopurinol Yes 300 mg = 1 [facility] 300 mg oral 1-07 tab, PO, l tablet 16:13: Daily, 0 [place] 00 Refill(s) allopurinol Yes 300 mg = [...] tab, PO, l tablet 16:13: Daily, 0 [place] 00 Refill(s) allopurinol Yes 300 mg = 1 [facility] 300 mg oral 1-07 tab, PO, l tablet 16:13: Daily, 0 [place] 00 Refill(s) allopurinol Yes 300 mg = 1 [facility] 300 mg oral 1-07 tab, PO, l tablet 16:13: Daily, 0 [place] 00 Refill(s) allopurinol Yes 300 mg = 1 [facility] 300 mg oral 1-07 tab, PO, l tablet 16:13: Daily, 0 [place] 00 Refill(s) allopurinol Yes 300 mg = 1 [facility] 300 mg oral 1-07 tab, PO, l tablet 16:13: Daily, 0 [place] 00 Refill(s) Unknown 0 Yes Refill(s) [facility] -07 0 l Medication 16:12: [place] Unknown 0 Yes Refill(s) [facility] 11-07 0 l Medication 16:12: [place] 00 Unknown 0 Yes Refill(s) Memor ia [...] Home 1-07 0 l Medication 16:12: pantoprazol 2016- Yes 40 mg = 1 [...] n Coated 00 Refill(s) Tablet [Protonix] pantoprazol 20160 Yes 40 mg = 1 M emoria [...] n Coated 00 Refill(s) Tablet [Protonix] pantoprazol 20160 Yes 40 mg = 1 M emoria e 40 MG 1-07 tab, PO, l Enteric 16:11: Daily, 0 [place] Coated 00 Refill(s) Tablet [Protonix] pantoprazol 20160 Yes 40 mg = 1 M emoria e 40 MG 1-07 tab, PO, l Enteric 16:11: Daily, 0 [place] Coated 00 Refill(s) Tablet [Protonix] pantoprazol 20160 Yes 40 mg = 1 M emoria e 40 MG 1-07 tab, PO, l Enteric 16:11: Daily, 0 [place] Coated 00 Refill(s) Tablet [Protonix] pantoprazol 20160 Yes 40 mg = 1 M emoria [...] n Coated 00 Refill(s) Tablet [Protonix] pantoprazol 20160 Yes 40 mg = 1 M emoria [...] n Coated 00 Refill(s) Tablet [Protonix] pantoprazol 20160 Yes 40 mg = 1 M emoria [...] tab, PO, l Enteric 16:11: Daily, 0 [place] Coated 00 Refill(s) Tablet [Protonix] pantoprazol [...] l de 50 MG 16:10: TID, 0 [place] Oral Tablet 00 Refill(s) Hydralazine Yes 50 mg = 1 M [facility] Hydrochlori 1-07 tab, PO, l de 50 MG 16:10: TID, 0 [place] Oral Tablet 00 Refill(s) Hydralazine 0 Yes 50 mg = 1 M [facility] Hydrochlori -07 tab, PO, l de 50 MG 16:10: TID, 0 [place] Oral Tablet 00 Refill(s) Hydralazine Yes 50 mg = 1 M [facility] Hydrochlori 1-07 tab, PO, l de 50 MG 16:10: TID, 0 [place] Oral Tablet 00 Refill(s) Hydralazine 0 Yes 50 mg = 1 M [facility] Hydrochlori 1-07 tab, PO, l de 50 MG 16:10: TID, 0 [place] Oral Tablet 00 Refill(s) Hydralazine 0 Yes 50 mg = 1 M [facility] Hydrochlori -07 tab, PO, l de 50 MG 16:10: TID, 0 [place] Oral Tablet 00 Refill(s) Hydralazine 0 Yes 50 mg = 1 M [facility] Hydrochlori 07 tab, PO, l de 50 MG 16:10: TID, 0 [place] Oral Tablet 00 Refill(s) Hydralazine 0 Yes 50 mg = 1 M [facility] Hydrochlori 07 tab, PO, l de 50 MG 16:10: TID, 0 [place] Oral Tablet 00 Refill(s) Hydralazine 0 Yes 50 mg = 1 M [facility] Hydrochlori 07 tab, PO, l de 50 MG 16:10: TID, 0 [place] Oral Tablet 00 Refill(s) Hydralazine 0 Yes 50 mg = 1 M [facility] Hydrochlori -07 tab, PO, l de 50 MG 16:10: TID, 0 [place] Oral Tablet 00 Refill(s) Hydralazine 0 Yes [...] l de 50 MG 16:10: TID, 0 [place] Oral Tablet 00 Refill(s) Hydralazine 0 Yes [...] l de 50 MG 16:10: TID, 0 [place] Oral Tablet 00 Refill(s) Hydralazine 0 Yes 50 mg = 1 M [facility] Hydrochlori 07 tab, PO, l de 50 MG 16:10: TID, 0 [place] Oral Tablet 00 Refill(s) Hydralazine 0 Yes 50 mg = 1 M [facility] Hydrochlori -07 tab, PO, l de 50 MG 16:10: TID, 0 [place] Oral Tablet 00 Refill(s) Hydralazine 0 Yes 50 mg = 1 M [facility] Hydrochlori 07 tab, PO, l de 50 MG 16:10: TID, 0 [place] Oral Tablet 00 Refill(s) Hydralazine 2015-0 Yes 50 mg = 1 M [facility] Hydrochlori -07 tab, PO, l de 50 MG 16:10: TID, 0 [place] Oral Tablet 00 Refill(s) Hydralazine 2015-0 Yes 50 mg = 1 M [facility] Hydrochlori -07 tab, PO, l de 50 MG 16:10: TID, 0 [place] Oral Tablet 00 Refill(s) Hydralazine 20160 Yes 50 mg = 1 M [facility] Hydrochlori -07 tab, PO, l de 50 MG 16:10: TID, 0 [place] Oral Tablet 00 Refill(s) Hydralazine 20160 Yes [...] l de 50 MG 16:10: TID, 0 [place] Oral Tablet 00 Refill(s) Hydralazine 0 Yes 50 mg = 1 M [facility] Hydrochlori -07 tab, PO, l de 50 MG 16:10: TID, 0 [place] Oral Tablet 00 Refill(s) Hydralazine 0 Yes [...] l de 50 MG 16:10: TID, 0 [place] Oral Tablet 00 Refill(s) Hydralazine 0 Yes 50 mg = 1 M [facility] Hydrochlori -07 tab, PO, l de 50 MG 16:10: TID, 0 [place] Oral Tablet 00 Refill(s) Hydralazine 20160 Yes 50 mg = 1 M [facility] Hydrochlori -07 tab, PO, l de 50 MG 16:10: TID, 0 [place] Oral Tablet 00 Refill(s) Hydralazine 20160 Yes 50 mg = 1 M [facility] Hydrochlori 1-07 tab, PO, l de 50 MG 16:10: TID, 0 [place] Oral Tablet 00 Refill(s) Hydralazine 0 Yes 50 mg = 1 M [facility] Hydrochlori 1-07 tab, PO, l de 50 MG 16:10: TID, 0 [place] Oral Tablet 00 Refill(s) Hydralazine 0 Yes [...] l de 50 MG 16:10: TID, 0 [place] Oral Tablet 00 Refill(s) Hydralazine 0 Yes 50 mg = 1 M [place] Hydrochlori -07 tab, PO, l de 50 MG 16:10: TID, 0 [place] Oral Tablet 00 Refill(s) Hydralazine 0 Yes 50 mg = 1 M [place] Hydrochlori -07 tab, PO, l de 50 MG 16:10: TID, 0 [place] Oral Tablet 00 Refill(s) Hydralazine 0 Yes 50 mg = 1 M [facility] Hydrochlori -07 tab, PO, l de 50 MG 16:10: TID, 0 [place] Oral Tablet 00 Refill(s) Hydralazine 0 Yes 50 mg = 1 M [facility] Hydrochlori -07 tab, PO, l de 50 MG 16:10: TID, 0 [place] Oral Tablet 00 Refill(s) Hydralazine 0 Yes 50 mg = 1 M [facility] Hydrochlori 1-07 tab, PO, l de 50 MG 16:10: TID, 0 [place] Oral Tablet 00 Refill(s) Hydralazine 0 Yes 50 mg = 1 M [facility] Hydrochlori -07 tab, PO, l de 50 MG 16:10: TID, 0 [place] Oral Tablet 00 Refill(s) Hydralazine 0 Yes 50 mg = 1 M [facility] Hydrochlori 07 tab, PO, l de 50 MG 16:10: TID, 0 [place] Oral Tablet 00 Refill(s) Hydralazine 0 Yes 50 mg = 1 M [facility] Hydrochlori 07 tab, PO, l de 50 MG 16:10: TID, 0 [place] Oral Tablet 00 Refill(s) Hydralazine 0 Yes [...] l de 50 MG 16:10: TID, 0 [place] Oral Tablet 00 Refill(s) Hydralazine 0 Yes 50 mg = 1 M [facility] Hydrochlori 11-07 tab, PO, l de 50 MG 16:10: TID, 0 [place] Oral Tablet 00 Refill(s) Hydralazine 0 Yes [...] l de 50 MG 16:10: TID, 0 [place] Oral Tablet 00 Refill(s) lisinopril 0 Yes 10 mg = 1 Me [facility] 10 mg oral 1-07 tab, PO, l tablet 16:09: BID, 0 [place] 00 Refill(s) lisinopril 0 Yes 10 mg = 1 Me [facility] 10 mg oral 1-07 tab, PO, l tablet 16:09: BID, 0 [place] 00 Refill(s) lisinopril 0 Yes 10 mg [...] tab, PO, l tablet 16:09: BID, 0 [place] 00 Refill(s) lisinopril 2015-0 Yes 10 mg [...] tab, PO, l tablet 16:09: BID, 0 [place] 00 Refill(s) lisinopril 2016-0 Yes 10 mg = 1 Me [facility] 10 mg oral 1-07 tab, PO, l tablet 16:09: BID, 0 [place] 00 Refill(s) lisinopril 2015-0 Yes 10 mg = 1 Me [facility] 10 mg oral 1-07 tab, PO, l tablet 16:09: BID, 0 [place] 00 Refill(s) lisinopril 2015-0 Yes 10 mg = 1 Me [facility] 10 mg oral 1-07 tab, PO, l tablet 16:09: BID, 0 [place] 00 Refill(s) lisinopril 2016-0 Yes 10 mg = 1 Me [facility] 10 mg oral 1-07 tab, PO, l tablet 16:09: BID, 0 [place] 00 Refill(s) lisinopril 2016-0 Yes 10 mg = 1 Me [facility] 10 mg oral 1-07 tab, PO, l tablet 16:09: BID, 0 [place] 00 Refill(s) lisinopril 20160 Yes 10 mg = 1 Me [facility] 10 mg oral 1-07 tab, PO, l tablet 16:09: BID, 0 [place] 00 Refill(s) lisinopril 2016-0 Yes 10 mg = 1 Me [facility] 10 mg oral 1-07 tab, PO, l tablet 16:09: BID, 0 [place] 00 Refill(s) lisinopril 20160 Yes 10 mg = 1 Me moria [...] tab, PO, l tablet 16:09: BID, 0 [place] 00 Refill(s) lisinopril 2016-0 Yes 10 mg [...] tab, PO, l tablet 16:09: BID, 0 [place] 00 Refill(s) lisinopril 2016-0 Yes 10 mg = 1 Me [facility] 10 mg oral 1-07 tab, PO, l tablet 16:09: BID, 0 [place] 00 Refill(s) lisinopril 2016-0 Yes 10 mg = 1 Me mor[facility] 10 mg oral 1-07 tab, PO, l tablet 16:09: BID, 0 [place] 00 Refill(s) lisinopril 2016-0 Yes 10 mg = 1 Me [facility] 10 mg oral 1-07 tab, PO, l tablet 16:09: BID, 0 [place] 00 Refill(s) lisinopril 2016-0 Yes 10 mg = 1 [facility] 10 mg oral 1-07 tab, PO, l tablet 16:09: BID, 0 [place] 00 Refill(s) lisinopril 2016-0 Yes 10 mg = 1 [facility] 10 mg oral 1-07 tab, PO, l tablet 16:09: BID, 0 [place] 00 Refill(s) lisinopril 2016-0 Yes 10 mg = 1 [facility] 10 mg oral 1-07 tab, PO, l tablet 16:09: BID, 0 [place] 00 Refill(s) lisinopril 2016-0 Yes 10 mg [...] tab, PO, l tablet 16:09: BID, 0 [place] 00 Refill(s) lisinopril 2016-0 Yes 10 mg = 1 [facility] 10 mg oral 1-07 tab, PO, l tablet 16:09: BID, 0 [place] 00 Refill(s) lisinopril 2016-0 Yes 10 mg = 1 [facility] 10 mg oral 1-07 tab, PO, l tablet 16:09: BID, 0 [place] 00 Refill(s) lisinopril 2016-0 Yes 10 mg = 1 [facility] 10 mg oral 1-07 tab, PO, l tablet 16:09: BID, 0 [place] 00 Refill(s) lisinopril 2016-0 Yes 10 mg = 1 [facility] 10 mg oral 1-07 tab, PO, l tablet 16:09: BID, 0 [place] 00 Refill(s) lisinopril 2016-0 Yes 10 mg = 1 [facility] 10 mg oral 1-07 tab, PO, l tablet 16:09: BID, 0 [place] 00 Refill(s) lisinopril 2016-0 Yes 10 mg [...] tab, PO, l tablet 16:09: BID, 0 [place] 00 Refill(s) lisinopril 2016-0 Yes 10 mg = 1 [facility] 10 mg oral 1-07 tab, PO, l tablet 16:09: BID, 0 [place] 00 Refill(s) lisinopril 2016-0 Yes 10 mg = 1 [facility] 10 mg oral 1-07 tab, PO, l tablet 16:09: BID, 0 [place] 00 Refill(s) lisinopril 2016-0 Yes 10 mg = 1 [facility] 10 mg oral 1-07 tab, PO, l tablet 16:09: BID, 0 [place] 00 Refill(s) lisinopril 2016-0 Yes 10 mg = 1 Me [facility] 10 mg oral 1-07 tab, PO, l tablet 16:09: BID, 0 [place] 00 Refill(s) lisinopril 2016-0 Yes 10 mg = 1 [facility] 10 mg oral 1-07 tab, PO, l tablet 16:09: BID, 0 [place] 00 Refill(s) lisinopril 2016-0 Yes 10 mg [...] tab, PO, l tablet 16:09: BID, 0 [place] 00 Refill(s) lisinopril 2016-0 Yes 10 mg = 1 [facility] 10 mg oral 1-07 tab, PO, l tablet 16:09: BID, 0 [place] 00 Refill(s) lisinopril 2016-0 Yes 10 mg = 1 [facility] 10 mg oral 1-07 tab, PO, l tablet 16:09: BID, 0 [place] 00 Refill(s) lisinopril 2016-0 Yes 10 mg [...] tab, PO, l tablet 16:09: BID, 0 [place] 00 Refill(s) lisinopril 2016-0 Yes 10 mg = 1 [facility] 10 mg oral 1-07 tab, PO, l tablet 16:09: BID, 0 [place] 00 Refill(s) lisinopril 2016-0 Yes 10 mg = 1 [facility] 10 mg oral 1-07 tab, PO, l tablet 16:09: BID, 0 [place] 00 Refill(s) lisinopril 2016-0 Yes 10 mg [...] tab, PO, l Tablet 16:08: Daily, 0 [place] [Norvasc] 00 Refill(s) Hydrochloro 2016-0 Yes 25 mg, PO, [facility] thiazide 11-07 Daily, 0 l 16:08: Refill(s) [place] 00 Amlodipine 2016-0 Yes 10 mg = 1 Me [facility] 10 MG Oral 1-07 tab, PO, l Tablet 16:08: Daily, 0 [place] [Norvasc] 00 Refill(s) Hydrochloro 2016-0 Yes 25 mg, PO, [facility] thiazide 07 Daily, 0 l 16:08: Refill(s) [place] 00 Amlodipine 2015-0 Yes 10 mg = 1 Me [facility] 10 MG Oral -07 tab, PO, l Tablet 16:08: Daily, 0 [place] [Norvasc] 00 Refill(s) Hydrochloro 2016-0 Yes 25 [...] tab, PO, l Tablet 16:08: Daily, 0 [place] [Norvasc] 00 Refill(s) Hydrochloro 2016-0 Yes 25 mg, PO, [facility] thiazide 07 Daily, 0 l 16:08: Refill(s) [place] 00 Amlodipine 2016-0 Yes 10 mg = [...] tab, PO, l Tablet 16:08: Daily, 0 [place] [Norvasc] 00 Refill(s) Hydrochloro 2016-0 Yes 25 [...] tab, PO, l Tablet 16:08: Daily, 0 [place] [Norvasc] 00 Refill(s) Hydrochloro 2016-0 Yes 25 mg, PO, [facility] thiazide 11-07 Daily, 0 l 16:08: Refill(s) [place] 00 Amlodipine 2016-0 Yes 10 mg = 1 [facility] 10 MG Oral -07 tab, PO, l Tablet 16:08: Daily, 0 [place] [Norvasc] 00 Refill(s) Hydrochloro 2016-0 Yes 25 mg, PO, [facility] thiazide 11-07 Daily, 0 l 16:08: Refill(s) Amlodipine 2016-0 Yes 10 mg = 1 Me [place] 10 MG Oral -07 tab, PO, l Tablet 16:08: Daily, 0 [place] [Norvasc] 00 Refill(s) Hydrochloro 2016-0 Yes 25 [...] thiazide 1-07 Daily, 0 l 16:08: Refill(s) [place] 00 Amlodipine 2016-0 Yes 10 mg = 1 Me [place] 10 MG Oral 1-07 tab, PO, l Tablet 16:08: Daily, 0 [place] [Norvasc] 00 Refill(s) Hydrochloro 2016-0 Yes 25 mg, PO, [facility] thiazide 11-07 Daily, 0 l 16:08: Refill(s) Amlodipine 2016-0 Yes 10 mg = 1 [place] 10 MG Oral 1-07 tab, PO, l Tablet 16:08: Daily, 0 [place] [Norvasc] 00 Refill(s) Hydrochloro 2016-0 Yes 25 mg, PO, [facility] thiazide 107 Daily, 0 l 16:08: Refill(s) Amlodipine 2015-0 [...] tab, PO, l Tablet 16:08: Daily, 0 [place] [Norvasc] 00 Refill(s) Hydrochloro 2016-0 Yes 25 mg, PO, [facility] thiazide 1-07 Daily, 0 l 16:08: Refill(s) Amlodipine 2016-0 Yes 10 mg = 1 [place] 10 MG Oral 1-07 tab, PO, l Tablet 16:08: Daily, 0 [place] [Norvasc] 00 Refill(s) Hydrochloro 2016-0 Yes 25 mg, PO, [facility] thiazide 11-07 Daily, 0 l 16:08: Refill(s) [place] 00 Amlodipine 2016-0 Yes 10 mg = 1 Me [place] 10 MG Oral 1-07 tab, PO, l Tablet 16:08: Daily, 0 [place] [Norvasc] 00 Refill(s) Hydrochloro 2016-0 Yes 25 mg, PO, [facility]oria thiazide 11-07 Daily, 0 l 16:08: Refill(s) [place] 00 Amlodipine 2016-0 Yes 10 mg = [...] thiazide 11-07 Daily, 0 l 16:08: Refill(s) [place] 00 Amlodipine 2016-0 Yes 10 mg = 1 Me [place] 10 MG Oral -07 tab, PO, l Tablet 16:08: Daily, 0 [place] [Norvasc] 00 Refill(s) Hydrochloro 2016-0 Yes 25 mg, PO, [facility] thiazide 11-07 Daily, 0 l 16:08: Refill(s) [place] 00 Amlodipine 2016-0 Yes 10 mg = [...] tab, PO, l Tablet 16:08: Daily, 0 [place] [Norvasc] 00 Refill(s) Hydrochloro 2016-0 Yes 25 mg, PO, [facility] thiazide 1-07 Daily, 0 l 16:08: Refill(s) Amlodipine 2016-0 Yes 10 mg = 1 [place] 10 MG Oral -07 tab, PO, l Tablet 16:08: Daily, 0 [place] [Norvasc] 00 Refill(s) Hydrochloro 2016-0 Yes 25 mg, PO, [facility] thiazide 11-07 Daily, 0 l 16:08: Refill(s) [place] 00 Amlodipine 2016-0 Yes 10 mg = 1 [place] 10 MG Oral -07 tab, PO, l Tablet 16:08: Daily, 0 [place] [Norvasc] 00 Refill(s) Hydrochloro 2016-0 Yes 25 [...] thiazide 1-07 Daily, 0 l 16:08: Refill(s) [place] 00 Amlodipine 2016-0 Yes 10 mg = 1 [place] 10 MG Oral 1-07 tab, PO, l Tablet 16:08: Daily, 0 [place] [Norvasc] 00 Refill(s) Hydrochloro 2016-0 Yes 25 mg, PO, [facility] thiazide 07 Daily, 0 l 16:08: Refill(s) Amlodipine 2015-0 Yes 10 mg = 1 [place] 10 MG Oral 1-07 tab, PO, l Tablet 16:08: Daily, 0 [place] [Norvasc] 00 Refill(s) Hydrochloro 2016-0 Yes 25 mg, PO, Memoria thiazide 107 Daily, 0 l 16:08: Refill(s) Amlodipine 0 Yes 10 mg = 1 Me moria 10 MG Oral -07 tab, PO, l Tablet 16:08: Daily, 0 [place] [Norvasc] 00 Refill(s) Hydrochloro 2016-0 Yes 25 [...] tab, PO, l Tablet 16:08: Daily, 0 [place] [Norvasc] 00 Refill(s) Hydrochloro 2016-0 Yes 25 mg, PO, Memoria thiazide -07 Daily, 0 l 16:08: Refill(s) Amlodipine 2016-0 Yes 10 mg = 1 Me moria 10 MG Oral 1-07 tab, PO, l Tablet 16:08: Daily, 0 [place] [Norvasc] 00 Refill(s) Hydrochloro 2016-0 Yes 25 [...] thiazide 11-07 Daily, 0 l 16:08: Refill(s) [place] 00 Amlodipine 2016-0 Yes 10 mg = 1 Me moria 10 MG Oral -07 tab, PO, l Tablet 16:08: Daily, 0 [place] [Norvasc] 00 Refill(s) Hydrochloro 2016-0 Yes 25 mg, PO, Memoria thiazide 11-07 Daily, 0 l 16:08: Refill(s) Amlodipine 2016-0 Yes 10 mg = 1 Me moria 10 MG Oral -07 tab, PO, l Tablet 16:08: Daily, 0 [place] [Norvasc] 00 Refill(s) Hydrochloro 2016-0 Yes 25 mg, PO, Memoria thiazide 11-07 Daily, 0 l 16:08: Refill(s) Amlodipine 2016-0 Yes 10 mg = 1 Me moria 10 MG Oral -07 tab, PO, l Tablet 16:08: Daily, 0 [place] [Norvasc] 00 Refill(s) Hydrochloro 2016-0 Yes 25 mg, PO, Memoria thiazide 11-07 Daily, 0 l 16:08: Refill(s) [place] 00 Amlodipine 2016-0 Yes 10 mg = 1 Me moria 10 MG Oral 1-07 tab, PO, l Tablet 16:08: Daily, 0 [place] [Norvasc] 00 Refill(s) Hydrochloro 2016-0 Yes 25 mg, PO, Memoria thiazide -07 Daily, 0 l 16:08: Refill(s) [place] 00 Amlodipine 2016-0 Yes 10 mg = 1 Me moria 10 MG Oral 1-07 tab, PO, l Tablet 16:08: Daily, 0 [place] [Norvasc] 00 Refill(s) Hydrochloro 2016-0 Yes 25 [...] tab, PO, l Tablet 16:08: Daily, 0 [place] [Norvasc] 00 Refill(s) Hydrochloro 2016-0 Yes 25 mg, PO, Memoria thiazide 11-07 Daily, 0 l 16:08: Refill(s) Amlodipine 2016-0 Yes 10 mg = 1 [place] 10 MG Oral -07 tab, PO, l Tablet 16:08: Daily, 0 [place] [Norvasc] 00 Refill(s) Hydrochloro 2016-0 Yes 25 [...] thiazide 1-07 Daily, 0 l 16:08: Refill(s) [place] 00 Amlodipine Yes 10 mg = 1 Me moria 10 MG Oral 07 tab, PO, l Tablet 16:08: Daily, 0 [place] [Norvasc] 00 Refill(s) Hydrochloro Yes 25 mg, PO, Memoria thiazide 07 Daily, 0 l 16:08: Refill(s) [place] 00 metoprolol Yes 100 mg = 1 [...] tablet 00 Refill(s) albuterol albuterol No albuterol [facility] sulfate 2.5 sulfate 2.5 sulfate Family mg/3 mL mg/3 mL 2.5 mg/3 Pract ic (0.083 %) (0.083 %) mL (0.083 e solution solution %) for for solution nebulizatio nebulizatio for n n nebulizati on albuterol albuterol No albuterol [facility] sulfate HFA sulfate HFA sulfate Family 90 [...] SHORTNESS OF BREATH allopurinol allopurinol No allopurino [facility] 300 mg 300 mg l 300 mg Family tablet TAKE tablet TAKE tablet Practic 1 TABLET BY 1 TABLET BY TAKE 1 e MOUTH TWICE MOUTH TWICE TABLET BY DAILY. DAILY. MOUTH TWICE DAILY. alprazolam alprazolam No alprazolam [facility] 2 mg tablet 2 mg tablet 2 mg F amily TAKE 1 TAKE 1 tablet Practic TABLET BY TABLET BY TAKE 1 e MOUTH THREE MOUTH THREE TABLET BY TIMES DAILY TIMES DAILY MOUTH NEEDED NEEDED THREE FOR ANXIETY FOR ANXIETY TIMES DAILY NEEDED FOR ANXIETY amlodipine amlodipine No amlodipine [facility] 5 mg tablet 5 mg tablet 5 mg F amily TAKE 1 TAKE 1 tablet Practic TABLET BY TABLET BY TAKE 1 e MOUTH EVERY MOUTH EVERY TABLET BY DAY DAY MOUTH EVERY DAY atorvastati atorvastati No atorvastat [place] n 20 mg n 20 mg in [...] DAILY TWICE DAILY clonidine clonidine No clonidine [facility] HCl 0.2 mg HCl 0.2 mg HCl 0.2 mg Family tablet TAKE tablet TAKE tablet Practic 1 TABLET BY 1 TABLET BY TAKE 1 e MOUTH THREE MOUTH THREE TABLET BY TIMES DAILY TIMES DAILY MOUTH THREE TIMES DAILY colchicine colchicine No colchicine [facility] 0.6 mg 0.6 mg 0.6 mg Family [...] FOUR TIMES DAILY diclofenac diclofenac No diclofenac [facility] sodium 75 sodium 75 sodium 75 Family mg mg mg Practic tablet,artem tablet,artem tablet,del e yed release yed release ayed TAKE 1 TAKE 1 release TABLET BY TABLET BY TAKE 1 MOUTH TWICE MOUTH TWICE TABLET BY DAILY WITH DAILY WITH MOUTH MEALS MEALS TWICE DAILY WITH MEALS dicyclomine dicyclomine dicyclomin [facility] 10 mg 10 mg e 10 mg Family capsule capsule capsule Practi c TAKE 1 TAKE 1 TAKE 1 e CAPSULE BY CAPSULE BY CAPSULE BY MOUTH EVERY MOUTH EVERY MOUTH 8 HOURS 8 HOURS EVERY 8 HOURS gabapentin gabapentin No gabapentin [facility] 600 mg 600 mg 600 mg Family [...] UNDER THE SKIN EVERY EVENING hydralazine hydralazine hydralazin [facility] 100 mg 100 mg e 100 mg Family tablet TAKE tablet TAKE tablet Practic 1 TABLET BY 1 TABLET BY TAKE 1 e MOUTH THREE MOUTH THREE TABLET BY TIMES DAILY TIMES DAILY MOUTH THREE TIMES DAILY hydrochloro hydrochloro No hydrochlor [facility] thiazide thiazide othiazide dav[place] 12.5 mg 12.5 mg 12.5 mg Practi c capsule capsule capsule e TAKE 1 TAKE 1 TAKE 1 CAPSULE BY CAPSULE BY CAPSULE BY MOUTH DAILY MOUTH DAILY MOUTH DAILY hydrocodone hydrocodone No hydrocodon [facility] 7.5 7.5 e 7.5 [facility] mg-acetamin mg-acetamin mg-acetami Practic ophen 325 ophen [...] DAILY WITH MEALS ipratropium ipratropium No ipratropiu [facility] bromide bromide m bromide Fami ly 0.02 % 0.02 % 0.02 % Practic solution solution solution e for for for inhalation inhalation inhalation lisinopril lisinopril No lisinopril [facility] 40 mg 40 mg 40 mg Family tablet TAKE tablet TAKE tablet Practic 1/2 TABLET 1/2 TABLET TAKE 1/2 e BY MOUTH BY MOUTH TABLET BY TWICE DAILY TWICE DAILY MOUTH TWICE DAILY mesalamine mesalamine No mesalamine [facility] ER 0.375 ER 0.375 ER 0.375 Fam ramses gram gram gram Practic capsule,ext capsule,ext capsule,ex e ended ended tended release 24 release 24 release 24 hr TAKE 4 hr TAKE 4 hr TAKE 4 CAPSULES BY CAPSULES BY CAPSULES MOUTH DAILY MOUTH DAILY BY MOUTH DAILY metformin metformin No metformin [facility] 1,000 mg 1,000 mg 1,000 mg Fam ramses tablet TAKE tablet TAKE tablet Practic 1 TABLET BY 1 TABLET BY TAKE 1 e MOUTH TWICE MOUTH TWICE TABLET BY DAILY WITH DAILY WITH MOUTH MEALS MEALS TWICE DAILY WITH MEALS metoprolol metoprolol No metoprolol [facility] tartrate tartrate tartrate Fam ramses 100 mg [...] DAILY TABLET BY MOUTH DAILY [facility] mg in 0.4 mg rin 0.4 mg [facility] sublingual sublingual sublingual Practic tablet tablet tablet e PLACE [address] 1 TABLET TABLET TABLET UNDER THE UNDER THE UNDER THE TONGUE TONGUE TONGUE EVERY 5 EVERY 5 EVERY 5 MINUTES MINUTES MINUTES NEEDED FOR NEEDED FOR NEEDED FOR CHEST PAIN. CHEST PAIN. CHEST PAIN. ondansetron ondansetron No ondansetro [facility] HCl 4 mg HCl 4 mg n [...] Status Comments Sour e Immunization Name Name Influenza Virus 2022-09-21 [...] Universit y of Vaccine Quad IM, 00:00:00 [facility] dical Preserv and ABX Branch Free 6 [...] rsity of MODERNA 12+ YRS 00:00:00 [facility] ical VACCINE Branch SARS-COV-2 COVID-19 2021-07-11 [...] Unive rsity of MODERNA VACCINE 00:00:00 [facility] ical Branch SARS-COV-2 COVID-19 2020-12-03 Completed [...] YRS 00:00:00 [place] [facility] ical VACCINE Branch Influenza Virus 2020-11-13 Completed Universit y of Vaccine Quad .5 mL 00:00:00 [facility] IM 6+ MO Branch Influenza Virus 2020-11-13 Completed Universit y of Vaccine Quad .5 mL 00:00:00 [facility] IM 6+ MO Branch Influenza Virus [...] y of Vaccine Quad .5 mL 00:00:00 [facility] IM 6+ MO Branch Influenza Virus 2020-11-13 Completed Universit y of Vaccine Quad .5 mL 00:00:00 [facility] IM 6+ MO Branch Influenza Virus 2020-11-13 Completed Universit y of Vaccine Quad .5 mL 00:00:00 [facility] 6+ MO Branch Influenza Virus 2020-11-13 Completed Universit y of Vaccine Quad .5 mL 00:00:00 [facility] IM 6+ MO Branch Influenza Virus 2020-11-13 Completed Universit y of Vaccine Quad .5 mL 00:00:00 [facility] 6+ MO Branch Influenza Virus 2020-11-13 Completed Universit y of Vaccine Quad .5 mL 00:00:00 [facility] 6+ MO Branch Influenza Virus 2020-11-13 Completed Universit y of Vaccine Quad .5 mL 00:00:00 [facility] 6+ MO Branch Influenza Virus 2020-11-13 Completed Universit y of Vaccine Quad .5 mL 00:00:00 [facility] 6+ MO Branch Influenza Virus 2020-11-13 Completed Universit y of Vaccine Quad .5 mL 00:00:00 [facility] 6+ MO Branch Influenza Virus 2020-11-13 Completed Universit y of Vaccine Quad .5 mL 00:00:00 [facility] 6+ MO Branch Influenza Virus 2020-11-13 Completed Universit y of Vaccine Quad .5 mL 00:00:00 [facility] 6+ MO Branch Influenza Virus 2020-11-13 Completed Universit y of Vaccine Quad .5 mL 00:00:00 [facility] IM 6+ MO Branch Influenza Virus 2020-11-13 Completed Universit y of Vaccine Quad .5 mL 00:00:00 [facility] 6+ MO Branch Pneumococcal 2016-09-11 Completed University o f Polysaccharide, 00:00:00 [place] [facility] ical PPSV23 (PNEUMOVAX) Branch Influenza Virus 2016-09-11 Completed Universit y of Vaccine (3+ yrs) 00:00:00 [facility] dical Branch Pneumococcal 2016-09-11 Completed University o f Polysaccharide, 00:00:00 [place] [facility] PPSV23 (PNEUMOVAX) Branch Influenza Virus 2016-09-11 Completed Universit y of Vaccine (3+ yrs) 00:00:00 [facility] Branch Pneumococcal 2016-09-11 Completed University o f Polysaccharide, 00:00:00 [place] [facility] PPSV23 (PNEUMOVAX) Branch Influenza Virus 2016-09-11 Completed Universit y of Vaccine (3+ yrs) 00:00:00 [facility] Branch Pneumococcal 2016-09-11 Completed University o f Polysaccharide, 00:00:00 [place] [facility] PPSV23 (PNEUMOVAX) Branch Influenza Virus 2016-09-11 Completed Universit y of Vaccine (3+ yrs) 00:00:00 [facility] Branch Pneumococcal 2016-09-11 Completed University o f Polysaccharide, 00:00:00 [place] [facility] PPSV23 (PNEUMOVAX) Branch Influenza Virus 2016-09-11 Completed Universit y of Vaccine (3+ yrs) 00:00:00 [facility] Branch Pneumococcal 2016-09-11 Completed University o f Polysaccharide, 00:00:00 [place] [facility] PPSV23 (PNEUMOVAX) Branch Influenza Virus 2016-09-11 Completed Universit y of Vaccine (3+ yrs) 00:00:00 [facility] Pneumococcal 2016-09-11 Completed University o f Polysaccharide, 00:00:00 [place] [facility] PPSV23 (PNEUMOVAX) Branch Influenza Virus 2016-09-11 Completed Universit y of Vaccine (3+ yrs) 00:00:00 [facility] Pneumococcal 2016-09-11 Completed University o f Polysaccharide, 00:00:00 [place] [facility] PPSV23 (PNEUMOVAX) Branch Influenza Virus 2016-09-11 Completed Universit y of Vaccine (3+ yrs) 00:00:00 [facility] Pneumococcal 2016-09-11 Completed University o f Polysaccharide, 00:00:00 [place] [facility] PPSV23 (PNEUMOVAX) Branch Influenza Virus 2016-09-11 Completed Universit y of Vaccine (3+ yrs) 00:00:00 [facility] Pneumococcal 2016-09-11 Completed University o f Polysaccharide, 00:00:00 [place] [facility] PPSV23 (PNEUMOVAX) Branch Influenza Virus 2016-09-11 Completed Universit y of Vaccine (3+ yrs) 00:00:00 [facility] Pneumococcal 2016-09-11 Completed University o f Polysaccharide, 00:00:00 [place] [facility] PPSV23 (PNEUMOVAX) Branch Influenza Virus 2016-09-11 Completed Universit y of Vaccine (3+ yrs) 00:00:00 [facility] dical Branch Pneumococcal 2016-09-11 Completed University o f Polysaccharide, 00:00:00 [place] [facility] PPSV23 (PNEUMOVAX) Branch Influenza Virus 2016-09-11 Completed Universit y of Vaccine (3+ yrs) 00:00:00 [facility] dical Branch Pneumococcal 2016-09-11 Completed University o f Polysaccharide, 00:00:00 [place] [facility] PPSV23 (PNEUMOVAX) Branch Influenza Virus 2016-09-11 Completed Universit y of Vaccine (3+ yrs) 00:00:00 [facility] Branch Pneumococcal 2016-09-11 Completed University o f Polysaccharide, 00:00:00 [place] [facility] PPSV23 (PNEUMOVAX) Branch Influenza Virus 2016-09-11 Completed Universit y of Vaccine (3+ yrs) [facility] Pneumococcal 2016-09-11 Completed University o f Polysaccharide, 00:00:00 [place] [facility] PPSV23 (PNEUMOVAX) Branch Influenza Virus 2016-09-11 Completed Universit y of Vaccine (3+ yrs) [facility] Pneumococcal 2016-09-11 Completed University o f Polysaccharide, 00:00:00 [place] [facility] PPSV23 (PNEUMOVAX) Branch Influenza Virus 2016-09-11 Completed Universit y of Vaccine (3+ yrs) 00:00:00 [facility] Branch Pneumococcal 2015-04-11 Completed University o f [...] 2015-04-11 Completed University o f Polysaccharide, 00:00:00 [place] [facility] PPSV23 (PNEUMOVAX) Branch Pneumococcal 2015-04-11 Completed University o f Polysaccharide, 00:00:00 [place] [facility] PPSV23 (PNEUMOVAX) Branch Pneumococcal 2015-04-11 Completed University o f Polysaccharide, 00:00:00 [facility] ical PPSV23 (PNEUMOVAX) Branch Influenza Virus 2013-09-29 Completed Universit y of Vaccine (3+ yrs) 00:00:00 [facility] Influenza Virus 2013-09-29 Completed Universit y of Vaccine (3+ yrs) 00:00:00 [facility] Influenza Virus 2013-09-29 Completed Universit y of Vaccine (3+ yrs) 00:00:00 [facility] Influenza Virus 2013-09-29 Completed Universit y of Vaccine (3+ yrs) 00:00:00 [facility] Influenza Virus 2013-09-29 Completed Universit y of Vaccine (3+ yrs) 00:00:00 [facility] Flu Trivalent 2013-09-29 Completed University of 00:00:00 [facility] Influenza Virus 2013-09-29 Completed Universit y of Vaccine (3+ yrs) 00:00:00 [facility] Flu Trivalent 2013-09-29 Completed University of 00:00:00 [facility] Influenza Virus 2013-09-29 Completed Universit y of Vaccine (3+ yrs) 00:00:00 [facility] Flu Trivalent 2013-09-29 Completed University of 00:00:00 [facility] Influenza Virus 2013-09-29 Completed Universit y of Vaccine (3+ yrs) 00:00:00 [facility] Flu Trivalent 2013-09-29 Completed University of 00:00:00 [facility] Influenza Virus 2013-09-29 Completed Universit y of Vaccine (3+ yrs) 00:00:00 [facility] Flu Trivalent 2013-09-29 Completed University of 00:00:00 [facility] Influenza Virus 2013-09-29 Completed Universit y of Vaccine (3+ yrs) 00:00:00 [facility] Flu Trivalent 2013-09-29 Completed University of 00:00:00 [facility] Influenza Virus 2013-09-29 Completed Universit y of Vaccine (3+ yrs) 00:00:00 [facility] Flu Trivalent 2013-09-29 Completed University of 00:00:00 [facility] Influenza Virus 2013-09-29 Completed Universit y of Vaccine (3+ yrs) 00:00:00 [facility] Flu Trivalent 2013-09-29 Completed University of 00:00:00 [facility] Influenza Virus 2013-09-29 Completed Universit y of Vaccine (3+ yrs) 00:00:00 [facility] Flu Trivalent 2013-09-29 Completed University of 00:00:00 [facility] Influenza Virus 2013-09-29 Completed Universit y of Vaccine (3+ yrs) 00:00:00 [facility] Flu Trivalent 2013-09-29 Completed University of 00:00:00 [facility] Influenza Virus 2013-09-29 Completed Universit y of Vaccine (3+ yrs) 00:00:00 [facility] Flu Trivalent 2013-09-29 Completed University of 00:00:00 [facility] Influenza Virus 2013-09-29 Completed Universit y of Vaccine (3+ yrs) 00:00:00 [facility] Flu Trivalent 2013-09-29 Completed University of 00:00:00 [facility] Influenza Virus 2012-11-25 Completed Universit y of Vaccine (3+ yrs) 00:00:00 [facility] Influenza Virus 2012-11-25 Completed Universit y of Vaccine (3+ yrs) 00:00:00 [facility] Influenza Virus 2012-11-25 Completed Universit y of Vaccine (3+ yrs) 00:00:00 [facility] Influenza Virus 2012-11-25 Completed Universit y of Vaccine (3+ yrs) 00:00:00 [facility] Influenza Virus 2012-11-25 Completed Universit y of Vaccine (3+ yrs) 00:00:00 [facility] Flu Trivalent 2012-11-25 Completed University of 00:00:00 [facility] Influenza Virus 2012-11-25 Completed Universit y of Vaccine (3+ yrs) 00:00:00 [facility] Flu Trivalent 2012-11-25 Completed University of 00:00:00 [facility] Influenza Virus 2012-11-25 Completed Universit y of Vaccine (3+ yrs) 00:00:00 [facility] Flu Trivalent 2012-11-25 Completed University of 00:00:00 [facility] Influenza Virus 2012-11-25 Completed Universit y of Vaccine (3+ yrs) 00:00:00 [facility] Flu Trivalent 2012-11-25 Completed University of 00:00:00 [facility] Influenza Virus 2012-11-25 Completed Universit y of Vaccine (3+ yrs) 00:00:00 [facility] Flu Trivalent 2012-11-25 Completed University of 00:00:00 [facility] Influenza Virus 2012-11-25 Completed Universit y of Vaccine (3+ yrs) 00:00:00 [facility] Flu Trivalent 2012-11-25 Completed University of 00:00:00 [facility] Influenza Virus 2012-11-25 Completed Universit y of Vaccine (3+ yrs) 00:00:00 [facility] Flu Trivalent 2012-11-25 Completed University of 00:00:00 [facility] Influenza Virus 2012-11-25 Completed Universit y of Vaccine (3+ yrs) 00:00:00 [facility] Flu Trivalent 2012-11-25 Completed University of 00:00:00 [facility] Influenza Virus 2012-11-25 Completed Universit y of Vaccine (3+ yrs) 00:00:00 [facility] Flu Trivalent 2012-11-25 Completed University of 00:00:00 [facility] Influenza Virus 2012-11-25 Completed Universit y of Vaccine (3+ yrs) 00:00:00 [facility] Flu Trivalent 2012-11-25 Completed University of 00:00:00 [facility] Influenza Virus 2012-11-25 Completed Universit y of Vaccine (3+ yrs) 00:00:00 [facility] Flu Trivalent 2012-11-25 Completed University of 00:00:00 [facility] Influenza Virus 2012-11-25 Completed Universit y of Vaccine (3+ yrs) 00:00:00 [facility] Flu Trivalent 2012-11-25 Completed University of 00:00:00 [facility] Vital Signs Vital Name Observation Time Observation Value Comments Source Systolic blood 2022-10-21 15:09:00 141 mm[Hg] Univer sity of pressure [facility] Diastolic blood 2022-10-21 15:09:00 81 mm[Hg] Unive rsity of pressure [facility] Heart rate 2022-10-21 15:08:00 84 /min Universi ty [facility] Body height 2022-10-21 15:08:[address] [facility] Body weight 2022-10-21 15:08:[address] [facility] BMI 2022-10-21 15:08:00 59.08 kg/m2 [facility] Oxygen saturation in 2022-10-21 15:08:00 95 /min [facility] Arterial blood by [facility] Pulse oximetry Branch Systolic blood 2022-09-21 15:34:00 151 mm[Hg] Univer sity of pressure [facility] Diastolic blood 2022-09-21 15:34:00 74 mm[Hg] Unive rsity of pressure [facility] Heart rate 2022-09-21 15:33:00 86 /min Universi ty [facility] Body height 2022-09-21 15:33:00 160 cm Universi [facility] Body weight 2022-09-21 15:33:00 [facility] 2022-09-21 15:33:00 58.49 kg/m2 Universi ty [facility] Oxygen saturation in 2022-09-21 15:33:00 92 /min University of Arterial blood by [facility] Pulse oximetry Branch Systolic blood 2022-08-25 14:59:00 121 mm[Hg] Univer sity of pressure [facility] Diastolic blood 2022-08-25 14:59:00 75 mm[Hg] Unive rsity of pressure [facility] Heart rate 2022-08-25 14:59:00 108 /min Universi ty [facility] Body temperature 2022-08-25 14:59:00 36.67 Pat Univ ersity of [facility] Body height 2022-08-25 14:59:00 160 cm Universi ty [facility] Body weight 2022-08-25 14:59:00 146.512 kg [facility] BMI 2022-08-25 14:59:00 57.22 kg/m2 [facility] Oxygen saturation in 2022-08-25 14:59:00 96 /min University of Arterial blood by [facility] Pulse oximetry Branch Body temperature 2022-06-16 12:58:00 36.33 Pat [facility] Body height 2022-06-16 12:58:00 160 cm [facility] Body weight 2022-06-16 12:58:00 151.32 kg [facility] BMI 2022-06-16 12:58:00 59.09 kg/m2 [facility] Systolic blood 2022-03-18 14:25:00 120 mm[Hg] Univer sity of pressure [facility] Diastolic blood 2022-03-18 14:25:00 70 mm[Hg] Unive rsity of pressure [facility] Heart rate 2022-03-18 14:25:00 78 /min [facility]i [facility] Body height 2022-03-18 14:25:00 160 cm [facility] Body weight 2022-03-18 14:25:00 150.367 kg [facility] BMI 2022-03-18 14:25:00 58.72 kg/m2 [facility] Oxygen saturation in 2022-03-18 14:25:00 95 /min University of Arterial blood by [facility] Pulse oximetry Branch HEIGHT 2022-01-09 09:38:00 160 cm WEIGHT 2022-01-09 09:38:00 151.501 kg HEIGHT 2022-01-08 12:04:00 160 cm WEIGHT 2022-01-08 12:04:00 149.687 kg HEIGHT 2022-01-09 09:38:00 160 cm WEIGHT 2022-01-09 09:38:00 151.501 kg HEIGHT 2022-01-08 12:04:00 160 cm WEIGHT 2022-01-08 12:04:00 149.687 kg Systolic blood 2021-11-06 19:35:00 132 mm[Hg] [facility] pressure Medicine Diastolic blood 2021-11-06 19:35:00 69 mm[Hg] [facility] Medicine Heart rate 2021-11-06 19:35:00 93 /min [facility] Body temperature 2021-11-06 19:35:00 36 Pat [facility] Respiratory rate 2021-11-06 19:35:00 18 /min [facility] Body height 2021-11-06 19:35:00 160 cm [facility] Body weight 2021-11-06 19:35:00 151.32 kg [facility] BMI 2021-11-06 19:35:00 59.09 kg/m2 [facility] BP Diastolic 2021-08-21 00:00:00 89 mm[Hg] [facility] Height 2021-08-21 00:00:00 63 [in_i] [facility] BMI (Body Mass 2021-08-21 00:00:00 58.1 kg/m2 [facility] BP Systolic 2021-08-21 00:00:00 131 mm[Hg] [facility] Body Weight 2021-08-21 00:00:00 328 [lb_av] [facility] Practice Systolic blood 2023-03-11 16:45:59 129 mm[Hg] Univer sity of pressure [facility] Diastolic blood 2023-03-11 16:45:59 76 mm[Hg] Unive rsity of pressure [facility] Heart rate 2023-03-11 16:45:59 82 /min [facility] [place] [facility] Body temperature 2023-03-11 16:45:59 36.39 Pat [facility] ersity [facility] MD [facility] Respiratory rate 2023-03-11 16:45:59 16 /min [facility] Body weight 2023-03-11 16:45:59 138.3 kg [facility] [place] [facility] [facility] BMI 2023-03-11 16:45:59 57.56 kg/m2 [facility] [place] [facility] Oxygen saturation in 2023-03-11 16:45:59 93 /min University Arterial blood by Bere valentin Pulse oximetry [facility] Body height 2023-02-06 13:19:00 155 cm [facility] [place] [facility] on [facility] Center Systolic blood 2022-01-09 13:53:00 157 mm[Hg] [facility] Diastolic blood 2022-01-09 13:53:00 89 mm[Hg] [facility] Heart rate 2022-01-09 13:53:00 80 /min [facility] Body temperature 2022-01-09 13:53:00 36.33 [facility] Respiratory rate 2022-01-09 13:53:00 19 /min [facility] Oxygen saturation in 2022-01-09 13:53:00 93 /min [facility] Arterial blood by [facility] Vera nter Pulse oximetry Body height 2022-01-09 09:38:00 160 cm [facility] Body weight 2022-01-09 09:38:00 151.501 kg [facility] BMI 2022-01-09 09:38:00 59.17 kg/m2 [facility] Systolic (mm Hg) 2018-04-04 19:53:00 Dillon Seay Diastolic (mm Hg) 2018-04-04 19:53:00 Simona Seay Respitory Rate 2018-04-04 19:53:00 Maynor Tsang Systolic (mm Hg) 2018-04-04 19:41:00 Dillon rial [place] Diastolic (mm Hg) 2018-04-04 19:41:00 Mem orial [place] Respitory Rate 2018-04-04 19:41:00 Memori al [place] Systolic (mm Hg) 2018-04-04 18:06:00 Dillon rial [place] Diastolic (mm Hg) 2018-04-04 18:06:00 Mem orial [place] Respitory Rate 2018-04-04 18:06:00 Memori al [place] Weight 2018-04-04 18:04:00 [facility] [place] BMI Calculated 2018-04-04 18:04:00 [facility] [place] Height 2018-03-30 16:54:00 160.02 cm [facility] [place] Respitory Rate 2018-03-21 22:06:00 Memori al [place] Systolic (mm Hg) 2018-03-21 22:06:00 Dillon rial [place] Diastolic (mm Hg) 2018-03-21 22:06:00 Mem orial [place] Respitory Rate 2018-03-21 21:53:00 Memori al [place] Systolic (mm Hg) 2018-03-21 21:53:00 Dillon rial [place] Diastolic (mm Hg) 2018-03-21 21:53:00 Mem orial [place] Systolic (mm Hg) 2018-03-21 19:08:00 Dillon rial [place] Diastolic (mm Hg) 2018-03-21 19:08:00 Mem orial [place] Respitory Rate 2018-03-21 19:08:00 Memori al [place] Height 2018 18:32:00 160.02 cm [facility] [place] Weight 2018 18:32:00 [facility] [place] BMI Calculated 2018 18:32:00 Memori [facility] [place] Weight 2015-11-07 16:05:00 [facility] [place] BMI Calculated 2015-11-07 16:05:00 [facility] [place] Height 2015-11-07 16:05:00 160.02 cm [facility] [place] Procedures Procedure Date / Time Performing Clinician Source Performed COMPLETE BLOOD COUNT W/ 2023-03-11 Lorena Hdez [facility] versity of DIFFERENTIAL 16:15:10 [place] Rob [facility] COMPREHENSIVE METABOLIC PANEL 2023-03-11 Lorena Hdez [facility] 16:15:10 [place] MD [facility] MAGNESIUM LEVEL 2023-03-11 Lorena Hdez [place] 16:15:10 [place] [facility] Results CBC 2023-03-11 Lorena Hdez [place] of 16:15:10 [place] [facility] MANUAL DIFFERENTIAL 2023-03-11 Lorena Hdez [facility] ity of 16:15:10 Bere GRIFFIN [facility] GLUCOSE LEVEL 2023-03-11 Lorena Hdez [place] of 16:15:10 [place] [facility] BLOOD UREA NITROGEN 2023-03-11 Lorena Hdez [facility] ity of 16:15:10 [place] [facility] ELECTROLYTE PANEL 2023-03-11 Lorena Hdez [facility] of 16:15:10 [place] [facility] SERUM CREATININE 2023-03-11 Lorena Hdez [place] 16:15:10 [place] [facility] .GLOMERULAR FILTRATION RATE 2023-03-11 Lorena Hdez [place] 16:15:10 [place] [facility] CALCIUM LEVEL TOTAL 2023-03-11 Lorena Hdez [facility] ity of 16:15:10 [place] [facility] ALBUMIN LEVEL 2023-03-11 Lorena Hdez [place] 16:15:10 [place] [facility] ALKALINE PHOSPHATASE 2023-03-11 Lorena Hdez [facility] sity of 16:15:10 [facility] ALANINE AMINOTRANSFERASE 2023-03-11 Lorena Hdez Un iversity of 16:15:10 [place] [facility] ASPARTATE AMINOTRANSFERASE 2023-03-11 Lorena Hdez [place] 16:15:10 [place] [facility] TOTAL PROTEIN 2023-03-11 Lorena Hdez [place] 16:15:10 [place] [facility] FRACTIONATED BILIRUBIN 2023-03-11 Lorena Hdez [facility] ersity of 16:15:10 [place] [facility] COMPLETE BLOOD COUNT W/ 2023-03-03 Lorena Hdez Uni versity of DIFFERENTIAL 18:03:40 Bere GRIFFIN [facility] COMPREHENSIVE METABOLIC PANEL 2023-03-03 Lorena Hdez [place] 18:03:40 [place] [facility] MAGNESIUM LEVEL 2023-03-03 Lorena Hdez [place] 18:03:40 [place] [facility] Results CBC 2023-03-03 Lorena Hdez [place] 18:03:40 [place] [facility] MANUAL DIFFERENTIAL 2023-03-03 Lorena Hdez [facility] ity of 18:03:40 [place] [facility] GLUCOSE LEVEL 2023-03-03 Lorena Hdez [place] 18:03:40 [place] [facility] BLOOD UREA NITROGEN 2023-03-03 Lorena Hdez [facility] ity of 18:03:40 [place] [facility] ELECTROLYTE PANEL 2023-03-03 [facility] 18:03:40 [place] [facility] SERUM CREATININE 2023-03-03 Lorena Hdez [place] 18:03:40 [facility] .GLOMERULAR FILTRATION RATE 2023-03-03 Lorena Hdez [place] 18:03:40 [place] [facility] CALCIUM LEVEL TOTAL 2023-03-03 Lorena Hdez [facility] ity of 18:03:40 [place] [facility] ALBUMIN LEVEL 2023-03-03 Lorena Hdez [place] 18:03:40 [place] [facility] ALKALINE PHOSPHATASE 2023-03-03 Lorena Hdez [facility] sity of 18:03:40 [place] [facility] ALANINE AMINOTRANSFERASE 2023-03-03 Lorena Hdez iversity of 18:03:40 [place] [facility] ASPARTATE AMINOTRANSFERASE 2023-03-03 Lorena Hdez [place] 18:03:40 [place] [facility] TOTAL PROTEIN 2023-03-03 Lorena Hdez [place] 18:03:40 [place] [facility] FRACTIONATED BILIRUBIN 2023-03-03 Lorena Hdez [facility] ersity of 18:03:40 [place] [facility] POC GLUCOSE SCREEN 2023-02-16 [facility] y of 17:02:00 [place] [facility] ANTI-XA LEVEL 2023-02-16 Tita [place] [facility] of 16:13:00 Silvia [place] [facility] POC GLUCOSE SCREEN 2023-02-16 [facility] y of 12:20:00 [place] [facility] MAGNESIUM LEVEL 2023-02-16 [facility] PHOSPHORUS LEVEL 2023-02-16 [facility] 11:15:00 [facility] COMPLETE BLOOD COUNT W/ 2023-02-16 Mark [facility] ty of DIFFERENTIAL 11:15:00 [facility] COMPREHENSIVE METABOLIC PANEL 2023-02-16 Thao Romero V. iversity of 11:15:00 [place] [facility] GLUCOSE LEVEL 2023-02-16 Thao Romero V. [place] 11:15:00 [place] [facility] BLOOD UREA NITROGEN 2023-02-16 Thao Romero V. [place] o f 11:15:00 [place] [facility] ELECTROLYTE PANEL 2023-02-16 Thao Romero V. [place] 11:15:00 [place] [facility] SERUM CREATININE 2023-02-16 Thao Romero V. [place] 11:15:00 [place] [facility] .GLOMERULAR FILTRATION RATE 2023-02-16 Thao Romero V. [facility] ersity of 11:15:00 [place] [facility] CALCIUM LEVEL TOTAL 2023-02-16 Thao Romero V. [place] f 11:15:00 [place] [facility] ALBUMIN LEVEL 2023-02-16 Thao Romero V. [place] 11:15:00 [place] [facility] ALKALINE PHOSPHATASE 2023-02-16 Thao Romero V. [place] 11:15:00 [place] [facility] ALANINE AMINOTRANSFERASE 2023-02-16 Thao Romero V. Univers ity of 11:15:00 [place] [facility] ASPARTATE AMINOTRANSFERASE 2023-02-16 Thao Romero V. Unive rsity of 11:15:00 [place] Liane olivier [facility] TOTAL PROTEIN 2023-02-16 Thao Romero V. [place] 11:15:00 [place] [facility] FRACTIONATED BILIRUBIN 2023-02-16 Thao Romero V. Universit y of 11:15:00 [place] [facility] Results CBC 2023-02-16 Mark [place] [facility] 11:15:00 [facility] MANUAL DIFFERENTIAL 2023-02-16 Mark [place] o f 11:15:00 [facility] POC GLUCOSE SCREEN 2023-02-16 [facility] o f 02:26:00 [facility] POC GLUCOSE SCREEN 2023-02-15 [facility] o f 22:30:00 [facility] POC GLUCOSE SCREEN 2023-02-15 [facility] o f 17:15:00 [facility] POC GLUCOSE SCREEN 2023-02-15 [facility] o f 12:03:00 [facility] MAGNESIUM LEVEL 2023-02-15 Mark [place] of 11:24:00 [facility] PHOSPHORUS LEVEL 2023-02-15 [facility] 11:24:00 [facility] [place] [facility] COMPLETE BLOOD COUNT W/ 2023-02-15 [facility] ty [facility] DIFFERENTIAL 11:24:00 [facility] COMPREHENSIVE METABOLIC PANEL 2023-02-15 Thao Romero V. Un iversity of 11:24:00 [place] MD Liane olivier [facility] GLUCOSE LEVEL 2023-02-15 Thao Romero V. [place] [facility] 11:24:00 [place] [facility] BLOOD UREA NITROGEN 2023-02-15 Thao Romero V. [place] f 11:24:00 [place] Liane olivier [facility] ELECTROLYTE PANEL 2023-02-15 Thao Romero V. [place] [facility] 11:24:00 [place] [facility] SERUM CREATININE 2023-02-15 Thao Romero . [place] 11:24:00 [place] [facility] .GLOMERULAR FILTRATION RATE 2023-02-15 Thao Romero V. [facility] ersity of 11:24:00 [place] [facility] CALCIUM LEVEL TOTAL 2023-02-15 Thao Romero . [place] o f 11:24:00 [place] [facility] ALBUMIN LEVEL 2023-02-15 Thao Romero . [place] 11:24:00 [place] [facility] ALKALINE PHOSPHATASE 2023-02-15 Thao Romero . [place] 11:24:00 [place] [facility] ALANINE AMINOTRANSFERASE 2023-02-15 Thao Romero V. [facility] ity of 11:24:00 [place] [facility] ASPARTATE AMINOTRANSFERASE 2023-02-15 Thao Romero . Unive rsity of 11:24:00 [place] [facility] TOTAL PROTEIN 2023-02-15 Thao Romero . [place] 11:24:00 [place] [facility] FRACTIONATED BILIRUBIN 2023-02-15 Thao Romero . Universit y of 11:24:00 [place] [facility] Results CBC 2023-02-15 [facility] 11:24:00 [facility] MANUAL DIFFERENTIAL 2023-02-15 [facility] f 11:24:00 [facility] POC GLUCOSE SCREEN 2023-02-15 [facility] o f 02:05:00 [facility] POC GLUCOSE SCREEN 2023-02-14 [facility] o f 22:46:00 [facility] POC GLUCOSE SCREEN 2023-02-14 [facility] o f 16:34:00 [facility] POC GLUCOSE SCREEN 2023-02-14 [facility] o f 13:58:00 [facility] MAGNESIUM LEVEL 2023-02-14 Mark [place] of 11:24:00 [facility] PHOSPHORUS LEVEL 2023-02-14 Mark, [place] of 11:24:00 [facility] COMPLETE BLOOD COUNT W/ 2023-02-14 Noel Floresi ty of DIFFERENTIAL 11:24:00 [facility] COMPREHENSIVE METABOLIC PANEL 2023-02-14 Thao Romero V. Un iversity of 11:24:00 [place] [facility] GLUCOSE LEVEL 2023-02-14 Thao Romero V. University of 11:24:00 [place] [facility] BLOOD UREA NITROGEN 2023-02-14 Thao Romero V. [place] [facility] f 11:24:00 [place] [facility] ELECTROLYTE PANEL 2023-02-14 Thao Romero V. [place] 11:24:00 [place] [facility] SERUM CREATININE 2023-02-14 Thao Romero V. [place] 11:24:00 [place] [facility] .GLOMERULAR FILTRATION RATE 2023-02-14 Thao Romero V. Univ ersity of 11:24:00 [place] [facility] CALCIUM LEVEL TOTAL 2023-02-14 Thao Romero V. [place] f 11:24:00 [place] [facility] ALBUMIN LEVEL 2023-02-14 Thao Romero V. [place] 11:24:00 [place] [facility] ALKALINE PHOSPHATASE 2023-02-14 Thao Romero V. University of 11:24:00 [place] [facility] ALANINE AMINOTRANSFERASE 2023-02-14 Thao Romero V. Univers ity of 11:24:00 [place] [facility] ASPARTATE AMINOTRANSFERASE 2023-02-14 Thao Romero V. Unive rsity of 11:24:00 [place] [facility] TOTAL PROTEIN 2023-02-14 Thao Romero V. University of 11:24:00 [place] [facility] FRACTIONATED BILIRUBIN 2023-02-14 Thao Romero V. Universit y of 11:24:00 [place] [facility] Results CBC 2023-02-14 [facility] 11:24:00 [facility] MANUAL DIFFERENTIAL 2023-02-14 [facility] o f 11:24:00 [facility] POC GLUCOSE SCREEN 2023-02-14 [facility] o f 02:44:00 [facility] POC GLUCOSE SCREEN 2023-02-13 [facility] o f 23:32:00 [facility] POC GLUCOSE SCREEN 2023-02-13 [facility] o f 18:19:00 [facility] POC GLUCOSE SCREEN 2023-02-13 [facility] o f 12:37:00 [facility] MAGNESIUM LEVEL 2023-02-13 [facility] 11:42:00 [facility] PHOSPHORUS LEVEL 2023-02-13 [facility] 11:42:00 [facility] COMPLETE BLOOD COUNT W/ 2023-02-13 [facility] DIFFERENTIAL 11:42:00 [facility] COMPREHENSIVE METABOLIC PANEL 2023-02-13 Thao Romero V. Un iversity of 11:42:00 [place] [facility] GLUCOSE LEVEL 2023-02-13 Thao Romero V. [facility] 11:42:00 [place] [facility] BLOOD UREA NITROGEN 2023-02-13 Thao Romero V. [place] o f 11:42:00 [place] [facility] ELECTROLYTE PANEL 2023-02-13 Thao Romero V. [facility] 11:42:00 [place] [facility] SERUM CREATININE 2023-02-13 Thao Romero V. [place] 11:42:00 [place] [facility] .GLOMERULAR FILTRATION RATE 2023-02-13 Thao Romero V. Univ ersity of 11:42:00 [place] [facility] CALCIUM LEVEL TOTAL 2023-02-13 Thao Romero V. [place] o f 11:42:00 [place] [facility] ALBUMIN LEVEL 2023-02-13 Thao Romero V. University of 11:42:00 [place] [facility] ALKALINE PHOSPHATASE 2023-02-13 Thao Romero V. University of 11:42:00 [place] [facility] ALANINE AMINOTRANSFERASE 2023-02-13 Thao Romero V. Univers ity of 11:42:00 [place] [facility] ASPARTATE AMINOTRANSFERASE 2023-02-13 Thao Romero V. Unive rsity of 11:42:00 [place] [facility] TOTAL PROTEIN 2023-02-13 Thao Romero V. [place] [facility] 11:42:00 [place] [facility] FRACTIONATED BILIRUBIN 2023-02-13 Thao Romero V. Universit y of 11:42:00 [place] [facility] Results CBC 2023-02-13 [facility] 11:42:00 [facility] MANUAL DIFFERENTIAL 2023-02-13 [facility] f 11:42:00 [facility] POC GLUCOSE SCREEN 2023-02-13 [facility] o f 03:26:00 [facility] POC GLUCOSE SCREEN 2023-02-13 [facility] o f 00:20:00 [facility] POC GLUCOSE SCREEN 2023-02-12 [facility] o f 20:06:00 [facility] POC GLUCOSE SCREEN 2023-02-12 [facility] o f 15:18:00 Silvia [place] [facility] GENERAL LABORATORY ADD ON 2023-02-12 Kimberli Cortes sity of TEST 14:33:00 [place] [facility] POC GLUCOSE SCREEN 2023-02-12 [facility] o f 13:55:00 Sil[place] [facility] MAGNESIUM LEVEL 2023-02-12 Mark [place] [facility] 10:34:00 [facility] [place] [facility] PHOSPHORUS LEVEL 2023-02-12 Mark [place] of 10:34:00 [facility] COMPLETE BLOOD COUNT W/ 2023-02-12 Noel Flores ty of DIFFERENTIAL 10:34:00 [facility] COMPREHENSIVE METABOLIC PANEL 2023-02-12 RomeroThao dumont V. Un iversity of 10:34:00 [place] [facility] GLUCOSE LEVEL 2023-02-12 RomeroThao dumont V. University of 10:34:00 [place] [facility] BLOOD UREA NITROGEN 2023-02-12 Thao Romero V. University o f 10:34:00 [place] [facility] ELECTROLYTE PANEL 2023-02-12 Thao Romero V. [place] 10:34:00 [place] [facility] SERUM CREATININE 2023-02-12 Thao Romero V. [place] 10:34:00 [place] [facility] .GLOMERULAR FILTRATION RATE 2023-02-12 Thao Romero V. Univ ersity of 10:34:00 [place] [facility] CALCIUM LEVEL TOTAL 2023-02-12 Thao Romero V. [place] o f 10:34:00 [place] [facility] ALBUMIN LEVEL 2023-02-12 Thao Romero V. [place] 10:34:00 [place] [facility] ALKALINE PHOSPHATASE 2023-02-12 Thao Romero V. University of 10:34:00 [place] [facility] ALANINE AMINOTRANSFERASE 2023-02-12 Thao Romero V. Univers ity of 10:34:00 [place] [facility] ASPARTATE AMINOTRANSFERASE 2023-02-12 Thao Romero V. Unive rsity of 10:34:00 [place] [facility] TOTAL PROTEIN 2023-02-12 Thao Romero V. University of 10:34:00 [place] [facility] FRACTIONATED BILIRUBIN 2023-02-12 Thao Romero V. Universit y of 10:34:00 [place] [facility] Results CBC 2023-02-12 Mark [place] of 10:34:00 [facility] MANUAL DIFFERENTIAL 2023-02-12 Mark [place] o f 10:34:00 [facility] PROCALCITONIN 2023-02-12 [facility] 10:34:00 [facility] POC GLUCOSE SCREEN 2023-02-12 [facility] o f 03:16:00 [facility] POC GLUCOSE SCREEN 2023-02-12 [facility] o f 00:01:00 [facility] POC GLUCOSE SCREEN 2023-02-11 [facility] o f 18:59:00 [facility] POC GLUCOSE SCREEN 2023-02-11 [facility] o f 13:46:00 [facility] MAGNESIUM LEVEL 2023-02-11 [facility] 10[facility]00 [facility] PHOSPHORUS LEVEL 2023-02-11 [facility] 10:42:00 [facility] COMPLETE BLOOD COUNT W/ 2023-02-11 [facility] DIFFERENTIAL 10:42:00 [facility] COMPREHENSIVE METABOLIC PANEL 2023-02-11 Thao Romero V. iversity of 10:42:00 [place] [facility] GLUCOSE LEVEL 2023-02-11 [facility] 10:42[facility]00 [place] [facility] BLOOD UREA NITROGEN 2023-02-11 Thao Romero V. [place] o f 10:42:00 [place] [facility] ELECTROLYTE PANEL 2023-02-11 Thao Romero V. [place] of 10:42:00 [place] [facility] SERUM CREATININE 2023-02-11 Thao Romero V. [facility] 10:42:00 [place] [facility] .GLOMERULAR FILTRATION RATE 2023-02-11 Thao Romero V. Univ ersity of 10:42:00 [place] [facility] CALCIUM LEVEL TOTAL 2023-02-11 Thao Romero V. [place] o f 10:42:00 [place] [facility] ALBUMIN LEVEL 2023-02-11 Thao Romero V. [facility] 10:42:00 [place] [facility] ALKALINE PHOSPHATASE 2023-02-11 Thao Romero V. [place] of 10:42:00 [place] MD Liane olivier [facility] ALANINE AMINOTRANSFERASE 2023-02-11 Thao Romero V. Univers ity of 10:42:00 [place] [facility] ASPARTATE AMINOTRANSFERASE 2023-02-11 Thao Romero V. Unive rsity of 10:42:00 [place] [facility] TOTAL PROTEIN 2023-02-11 Thao Romero V. University of 10:42:00 [place] [facility] FRACTIONATED BILIRUBIN 2023-02-11 Thao Romero V. Universit y of 10:42:00 [place] [facility] Results CBC 2023-02-11 Mark [place] of 10:42:00 [facility] MANUAL DIFFERENTIAL 2023-02-11 [facility] f 10:42:00 [facility] CT MAXILLOFACIAL AREA W 2023-02-11 [facility] ity of CONTRAST 09:15:00 [facility] POC GLUCOSE SCREEN 2023-02-11 [facility] o f 03:42:00 [facility] POC GLUCOSE SCREEN 2023-02-10 [facility] o f 22:17:00 [facility] POC GLUCOSE SCREEN 2023-02-10 [facility] o f 17:27:00 [facility] POC GLUCOSE SCREEN 2023-02-10 [facility] o f 13:52:00 [facility] MAGNESIUM LEVEL 2023-02-10 [facility] 10:43:00 [facility] PHOSPHORUS LEVEL 2023-02-10 On [facility] of 10:43:00 [facility] [place] [facility] COMPLETE BLOOD COUNT W/ 2023-02-10 Noel Floresi ty of DIFFERENTIAL 10:43:00 [facility] COMPREHENSIVE METABOLIC PANEL 2023-02-10 Thao Romero V. Un iversity of 10:43:00 [place] [facility] GLUCOSE LEVEL 2023-02-10 Thao Romero V. [place] of 10:43:00 [place] [facility] BLOOD UREA NITROGEN 2023-02-10 Thoa Romero V. [place] o f 10:43:00 [place] [facility] ELECTROLYTE PANEL 2023-02-10 Thao Romero V. [place] of 10:43:00 [place] [facility] SERUM CREATININE 2023-02-10 Thao Romero V. [place] of 10:43:00 [place] [facility] .GLOMERULAR FILTRATION RATE 2023-02-10 Thao Romero V. [facility] ersity of 10:43:00 [place] [facility] CALCIUM LEVEL TOTAL 2023-02-10 Thao Romero V. [place] o f 10:43:00 [place] [facility] ALBUMIN LEVEL 2023-02-10 Thao Romero V. [place] of 10:43:00 [place] [facility] ALKALINE PHOSPHATASE 2023-02-10 Thao Romero V. [place] of 10:43:00 [place] [facility] ALANINE AMINOTRANSFERASE 2023-02-10 Thao Romero V. Univers ity of 10:43:00 [place] [facility] ASPARTATE AMINOTRANSFERASE 2023-02-10 Thao Romero V. Unive rsity of 10:43:00 [place] [facility] TOTAL PROTEIN 2023-02-10 Thao Romero V. [place] of 10:43:00 [place] [facility] FRACTIONATED BILIRUBIN 2023-02-10 Thao Romero V. Universit y of 10:43:00 [place] [facility] Results CBC 2023-02-10 On [facility] of 10:43:00 [facility] MANUAL DIFFERENTIAL 2023-02-10 [facility] f 10:43:00 [facility] POC GLUCOSE SCREEN 2023-02-10 [facility] o f 03:27:00 [facility] POC GLUCOSE SCREEN 2023-02-09 [facility] o f 22:11:00 [facility] POC GLUCOSE SCREEN 2023-02-09 [facility] o f 18:18:00 [facility] POC GLUCOSE SCREEN 2023-02-09 [facility] o f 13:12:00 [facility] MAGNESIUM LEVEL 2023-02-09 Mark [place] of 10:37:00 [facility] PHOSPHORUS LEVEL 2023-02-09 [facility] of 10:37:00 [facility] COMPLETE BLOOD COUNT W/ 2023-02-09 Mark [facility] ty of DIFFERENTIAL 10:37:00 [facility] COMPREHENSIVE METABOLIC PANEL 2023-02-09 Thao Romero V. Un iversity of 10:37:00 [place] [facility] CREATINE KINASE 2023-02-09 Shelby José [place] of 10:37:00 [place] [facility] GLUCOSE LEVEL 2023-02-09 Thao Romero V. [place] of 10:37:00 [place] [facility] BLOOD UREA NITROGEN 2023-02-09 [facility] 10:37:00 [place] [facility] ELECTROLYTE PANEL 2023-02-09 Thao Romero V. [place] of 10:37:00 [place] [facility] SERUM CREATININE 2023-02-09 Thao Romero V. [place] of 10:37:00 [facility] .GLOMERULAR FILTRATION RATE 2023-02-09 Thao Romero V. Univ ersity of 10:37:00 [place] [facility] CALCIUM LEVEL TOTAL 2023-02-09 Thao Romero V. [place] o f 10:37:00 [place] [facility] ALBUMIN LEVEL 2023-02-09 Thao Romero V. [place] [facility] 10:37:00 [place] [facility] ALKALINE PHOSPHATASE 2023-02-09 Thao Romero V. [place] of 10:37:00 [place] [facility] ALANINE AMINOTRANSFERASE 2023-02-09 Thao Romero V. [facility] ity of 10:37:00 [place] [facility] ASPARTATE AMINOTRANSFERASE 2023-02-09 Thao Romero V. Unive rsity of 10:37:00 [place] Liane olivier [facility] TOTAL PROTEIN 2023-02-09 Thao Romero V. [place] [facility] 10:37:00 [place] [facility] FRACTIONATED BILIRUBIN 2023-02-09 Thao Romero V. Universit [facility] of 10:37:00 [place] [facility] soy [facility] Results CBC 2023-02-09 Mark [place] of 10:37:00 [facility] MANUAL DIFFERENTIAL 2023-02-09 Mark [place] o f 10:37:00 [facility] POC GLUCOSE SCREEN 2023-02-09 Derrick Gill Universi ty of 03:21:00 [place] [facility] POC GLUCOSE SCREEN 2023-02-08 Derrick Gill Universi ty of 23:32:00 [place] Liane olivier [facility] US ARM VENOUS DOPPLER 2023-02-08 Derrick Gill rsity of BILATERAL 23:28:54 [place] [facility] ECHOCARDIOGRAM 2D COMPLETE W 2023-02-08 Thao Romero V. Uni versity of CONTRAST 19:23:53 [place] [facility] soy [facility] POC GLUCOSE SCREEN 2023-02-08 Derrick Gill Universi ty of 17:21:00 [place] [facility] soy [facility] POC GLUCOSE SCREEN 2023-02-08 Derrick Gill Universi ty of 12:46:00 [place] Liane olivier [facility] MAGNESIUM LEVEL 2023-02-08 Mark [place] of 11:14:00 [facility] [place] [facility] PHOSPHORUS LEVEL 2023-02-08 Mark [place] of 11:14:00 [facility] [place] [facility] COMPLETE BLOOD COUNT W/ 2023-02-08 Noel Flores ty of DIFFERENTIAL 11:14:00 [facility] [place] [facility] COMPREHENSIVE METABOLIC PANEL 2023-02-08 Thao Romero V. Un iversity of 11:14:00 [place] Liane olivier [facility] GLUCOSE LEVEL 2023-02-08 Thao Romero V. [place] of 11:14:00 [place] [facility] BLOOD UREA NITROGEN 2023-02-08 Thao Romero V. [place] o f 11:14:00 [place] [facility] ELECTROLYTE PANEL 2023-02-08 Thao Romero V. [place] of 11:14:00 [place] [facility] SERUM CREATININE 2023-02-08 Thao Romero V. [place] of 11:14:00 [place] [facility] .GLOMERULAR FILTRATION RATE 2023-02-08 Thao Romero V. [facility] ersity of 11:14:00 [place] [facility] CALCIUM LEVEL TOTAL 2023-02-08 Thao Romero V. [place] o f 11:14:00 [place] [facility] ALBUMIN LEVEL 2023-02-08 Thao Romero V. [place] of 11:14:00 [place] [facility] ALKALINE PHOSPHATASE 2023-02-08 Thao Romero V. [place] of 11:14:00 [place] [facility] ALANINE AMINOTRANSFERASE 2023-02-08 Thao Romero V. Univers ity of 11:14:00 [place] [facility] ASPARTATE AMINOTRANSFERASE 2023-02-08 Thao Romero V. Unive rsity of 11:14:00 [place] [facility] TOTAL PROTEIN 2023-02-08 Thao Romero V. [place] of 11:14:00 [place] [facility] FRACTIONATED BILIRUBIN 2023-02-08 Thao Romero V. Universit y of 11:14:00 [place] [facility] Results CBC 2023-02-08 Mark [place] of 11:14:00 [facility] MANUAL DIFFERENTIAL 2023-02-08 Mark [place] o f 11:14:00 [facility] POC GLUCOSE SCREEN 2023-02-08 Derrick Gill Universi ty of 02:47:00 [place] [facility] POC GLUCOSE SCREEN 2023-02-08 Cortes-Galdino Quinteroan Universi ty of 00:12:00 [place] [facility] POC GLUCOSE SCREEN 2023-02-07 Cortes-Galdino Quinteroan Universi ty of 22:43:00 [place] [facility] POC GLUCOSE SCREEN 2023-02-07 Derrick Gill Universi ty of 18:16:00 [place] [facility] POC GLUCOSE SCREEN 2023-02-07 Cortes-Derrick Quintero Universi ty of 13:48:00 [place] [facility] BLOODCULTURE 2023-02-07 Tim Nguyen [place] of 11:52:00 [place] [facility] HIV-1/2 ANTIGEN AND 2023-02-07 Thao Romero V. [place] o f ANTIBODIES, FOURTH GENERATION 11:52:00 Dereck astudillo [facility] HEPATITIS B SURFACE ANTIGEN, 2023-02-07 Thao Romero V. Uni versity of SERUM 11:52:00 [place] [facility] HEPATITIS B CORE ANTIBODY 2023-02-07 Thao Romero V. Univer sity of 11:52:00 [place] [facility] HEPATITIS C VIRUS ANTIBODY 2023-02-07 Thao Romero V. Unive rsity of 11:52:00 [place] [facility] FERRITIN LVL 2023-02-07 Thao Romero V. [place] of 11:52:00 [place] [facility] TRANSFERRIN 2023-02-07 Thao Romero V. [place] of 11:52:00 [place] [facility] IRON LEVEL 2023-02-07 Thao Romero V. [place] of 11:52:00 [place] [facility] MAGNESIUM LEVEL 2023-02-07 [facility] 11:52:00 [facility] PHOSPHORUS LEVEL 2023-02-07 Mark [place] of 11:52:00 [facility] COMPLETE BLOOD COUNT W/ 2023-02-07 Mark [facility] ty of DIFFERENTIAL 11:52:00 [facility] COMPREHENSIVE METABOLIC PANEL 2023-02-07 Thao Romero V. Un iversity of 11:52:00 [place] [facility] LIPID PANEL 2023-02-07 Thao Romero V. University of 11:52:00 [place] [facility] HEMOGLOBIN A1C 2023-02-07 Thao Romero V. [place] of 11:52:00 [place] [facility] GLUCOSE LEVEL 2023-02-07 Thao Romero V. [place] of 11:52:00 [place] [facility] BLOOD UREA NITROGEN 2023-02-07 Thao Romero V. [place] o f 11:52:00 [place] [facility] ELECTROLYTE PANEL 2023-02-07 Thao Romero V. [place] of 11:52:00 [place] [facility] SERUM CREATININE 2023-02-07 Thao Romero V. [place] of 11:52:00 [place] [facility] .GLOMERULAR FILTRATION RATE 2023-02-07 Thao oRmero V. [facility] ersity of 11:52:00 [place] [facility] CALCIUM LEVEL TOTAL 2023-02-07 Thao Romero V. [place] o f 11:52:00 [place] [facility] ALBUMIN LEVEL 2023-02-07 Thao Romero V. [place] of 11:52:00 [place] [facility] ALKALINE PHOSPHATASE 2023-02-07 Thao Romero V. [place] of 11:52:00 [place] [facility] ALANINE AMINOTRANSFERASE 2023-02-07 Thao Romero V. [facility] ity of 11:52:00 [place] [facility] ASPARTATE AMINOTRANSFERASE 2023-02-07 Thao Romero V. [facility] rsity of 11:52:00 [place] [facility] TOTAL PROTEIN 2023-02-07 Thao Romero V. [place] of 11:52:00 [place] [facility] FRACTIONATED BILIRUBIN 2023-02-07 Thao Romero V. Universit y of 11:52:00 [place] [facility] Results CBC 2023-02-07 Mark [place] of 11:52:00 [facility] MANUAL DIFFERENTIAL 2023-02-07 [facility] f 11:52:00 [facility] C DIFFICILE DNA ASSAY 2023-02-07 Thao Romero V. [facility] 10:18:00 [place] [facility] C DIFFICILE DNA ASSAY PATH 2023-02-07 Thao Romero V. Univjessica rsity of REVIEW 10:18:00 [place] [facility] GASTROINTESTINAL MULTIPLEX 2023-02-07 Thao Romero V. [facility] rsity of PANEL 10:16:00 [place] [facility] GASTROINTESTINAL MULTIPLEX 2023-02-07 Thao Romero V. Unive rsity of PANEL PATH REVIEW 10:16:00 [place] MD Ruelas [facility] POC GLUCOSE SCREEN 2023-02-07 Thao Romero V. [facility] 03:51:00 [place] [facility] POC GLUCOSE SCREEN 2023-02-07 Thao Romero V. [facility] 00:28:00 [place] [facility] EKG, 12-LEAD (PORTABLE) 2023-02-07 Irina Houston ity of 00:00:00 [place] [facility] POC GLUCOSE SCREEN 2023-02-06 Thao Romero V. [facility] 22:13:00 [place] [facility] POC GLUCOSE SCREEN 2023-02-06 Thao Romero V. [facility] 19:18:00 [place] [facility] POC GLUCOSE SCREEN 2023-02-06 Thao Romero V. [facility] 18:26:00 [place] [facility] GENERAL LABORATORY ADD ON 2023-02-06 Thao Romero V. [facility] sity of TEST 16:44:00 [place] [facility] BLOODCULTURE 2023-02-06 Mark [facility] 16:11:00 [facility] [place] [facility] POC GLUCOSE SCREEN 2023-02-06 Amanda Proctor [place] of 14:46:00 [place] [facility] POC GLUCOSE SCREEN 2023-02-06 Amanda Proctor [place] of 12:40:00 [place] [facility] POC GLUCOSE SCREEN 2023-02-06 Amanda Proctor [place] of 08:20:00 [place] [facility] BASIC METABOLIC PANEL, 2023-02-06 Noel Floresit y of CALCIUM TOTAL 08:05:00 [facility] MAGNESIUM LEVEL 2023-02-06 Mark [facility] 08:05:00 [facility] PHOSPHORUS LEVEL 2023-02-06 [facility] 08:05:00 [facility] COMPLETE BLOOD COUNT W/ 2023-02-06 Luis Manuel Flores ty of DIFFERENTIAL 08:05:00 [facility] GLUCOSE LEVEL 2023-02-06 Cathie Meneses [facility] 08:05:00 [place] [facility] BLOOD UREA NITROGEN 2023-02-06 Cathie Meneses [facility] 08:05:00 [place] [facility] ELECTROLYTE PANEL 2023-02-06 Cathie Meneses [facility] 08:05:00 [place] [facility] SERUM CREATININE 2023-02-06 Cathie Meneses [facility] 08:05:00 [place] [facility] .GLOMERULAR FILTRATION RATE 2023-02-06 Cathie Meneses Uni versity of 08:05:00 [place] [facility] CALCIUM LEVEL TOTAL 2023-02-06 Cathie Meneses [facility] 08:05:00 [place] [facility] Results CBC 2023-02-06 Cathie Meneses [facility] 08:05:00 [place] [facility] MANUAL DIFFERENTIAL 2023-02-06 Cathie Meneses [facility] 08:05:00 [place] [facility] NT PRO BNP 2023-02-06 Cathie Meneses [facility] 08:05:00 [place] [facility] PROCALCITONIN 2023-02-06 Cathie Meneses [facility] 08:05:00 [place] [facility] C REACTIVE PROTEIN 2023-02-06 Cathie Meneses [place] o f 08:05:00 [place] [facility] POC GLUCOSE SCREEN 2023-02-06 Amanda Proctor [facility] 06:17:00 [place] [facility] TROPONIN T 2023-02-06 Irina Houston [facility] 06:09:00 [place] [facility] URINE CULTURE 2023-02-06 Irina Houston [facility] 05:40:00 [place] [facility] PROTHROMBIN TIME 2023-02-06 [facility] of 01:26:00 [place] Liane olivier [facility] APTT 2023-02-06 [facility] of 01:26:00 [place] Liane olivier [facility] D DIMER 2023-02-06 [facility] of 01:26:00 [place] Liane olivier [facility] LACTIC ACID, VENOUS 2023-02-06 [facility] o f 01:26:00 [place] Liane olivier [facility] XR ABDOMEN AP 2023-02-05 Amanda Proctor [place] of 23:59:27 [place] Liane olivier [facility] XR CHEST 1 VW 2023-02-05 Amanda Proctor [place] of 23:57:49 [place] Liane olivier [facility] COVID-19 (SARS-COV-2) 2023-02-05 Amanda Proctor [place] of ASYMPTOMATIC-LT 22:09:00 [place] Liane olivier [facility] POC GLUCOSE SCREEN 2023-02-05 [facility] of 21:27:00 [place] Liane olivier [facility] BLOODCULTURE 2023-02-05 Amanda Proctor [place] of 20:39:00 [place] [facility] BLOODCULTURE 2023-02-05 Amanda Proctor [place] of 20:30:00 [place] MD Rob [facility] COMPLETE BLOOD COUNT W/ 2023-02-05 [facility] DIFFERENTIAL 20:30:00 [place] Rob [facility] MAGNESIUM LEVEL 2023-02-05 Amanda Proctor [place] of 20:30:00 [place] Liane olivier [facility] PHOSPHORUS LEVEL 2023-02-05 Amanda Proctor [place] of 20:30:00 [place] Liane olivier [facility] NT PRO BNP 2023-02-05 Amanda Proctor [place] of 20:30:00 [place] Liane olivier [facility] TROPONIN T 2023-02-05 Amanda Proctor [place] of 20:30:00 [place] Rob [facility] CREATINE KINASE 2023-02-05 Amanda Proctor [place] of 20:30:00 [place] Rob [facility] CKMB 2023-02-05 Esthela, Amanda [place] of 20:30:00 [place] Rob [facility] C REACTIVE PROTEIN 2023-02-05 Amanda Proctor of 20:30:00 [place] [facility] COMPREHENSIVE METABOLIC PANEL 2023-02-05 Amanda Proctor iversity of 20:30:00 [place] [facility] [facility] PROCALCITONIN 2023-02-05 Esthela, Amanda Haq of 20:30:00 [facility] soy [facility] AMYLASE LEVEL 2023-02-05 Stevos, Amanda [place] of 20:30:00 [facility] soy [facility] LIPASE LEVEL 2023-02-05 Stevos, Amanda [place] of 20:30:00 [place] [facility] Results CBC 2023-02-05 Stevos, Amanda Haq of 20:30:00 [facility] soy [facility] MANUAL DIFFERENTIAL 2023-02-05 Esthela, Amanda Haq o f 20:30:00 [facility] GLUCOSE LEVEL 2023-02-05 Esthela, Amanda Haq of 20:30:00 [place] [facility] BLOOD UREA NITROGEN 2023-02-05 Esthela, Amanda Haq o f 20:30:00 [facility] soy [facility] ELECTROLYTE PANEL 2023-02-05 Esthela, Amanda Haq of 20:30:00 [place] [facility] SERUM CREATININE 2023-02-05 Esthela, Amanda Haq of 20:30:00 [place] [facility] .GLOMERULAR FILTRATION RATE 2023-02-05 Amanda Proctor ersity of 20:30:00 [place] [facility] CALCIUM LEVEL TOTAL 2023-02-05 Amanda Proctor o f 20:30:00 [facility] ALBUMIN LEVEL 2023-02-05 Amanda Proctor of 20:30:00 [place] [facility] ALKALINE PHOSPHATASE 2023-02-05 Esthela, Amanda Haq of 20:30:00 [place] [facility] ALANINE AMINOTRANSFERASE 2023-02-05 Amanda Proctor ity of 20:30:00 [place] [facility] ASPARTATE AMINOTRANSFERASE 2023-02-05 Esthela, Amanda Mathure rsity of 20:30:00 [place] [facility] TOTAL PROTEIN 2023-02-05 Amanda Proctor [place] of 20:30:00 Bere olivier [facility] FRACTIONATED BILIRUBIN 2023-02-05 Amanda Proctor [facility] y of 20:30:00 Bere olivier [facility] URINALYSIS MICROSCOPIC 2023-02-05 [facility] ty of 05:39:00 Bere olivier [facility] EKG, 12-LEAD (PORTABLE) 2023-02-05 Amanda Proctor [facility] ty of 00:00:00 Bere olivier [facility] COMPREHENSIVE METABOLIC PANEL 2023-02-04 [facility] [place] [place] of 17:33:52 Bere olivier [facility] COMPLETE BLOOD COUNT W/ 2023-02-[address] [facility] rsity of DIFFERENTIAL 17:33:52 Bere olivier [facility] MAGNESIUM LEVEL 2023-02-04 [facility] [place], [facility] of 17:33:52 Bere olivier [facility] PHOSPHORUS LEVEL 2023-02-04 [facility] Lori, [facility] o f 17:33:52 Bere olivier [facility] GLUCOSE LEVEL 2023-02-04 [facility] Lori, [facility] of 17:33:52 Bere olivier [facility] BLOOD UREA NITROGEN 2023-02-04 Vaibhav Rosario [facility] y of 17:33:52 Bere olivier [facility] ELECTROLYTE PANEL 2023-02-04 [facility] [place], [facility] of 17:33:52 Bere olivier [facility] SERUM CREATININE 2023-02-04 [facility] [place] o f 17:33:52 Bere olivier [facility] .GLOMERULAR FILTRATION RATE 2023-02-04 Vaibhav Rosario niversity of 17:33:52 Bere olivier [facility] CALCIUM LEVEL TOTAL 2023-02-04 Vaibhav Rosario [facility] y of 17:33:52 Bere olivier [facility] ALBUMIN LEVEL 2023-02-04 Vaibhav Rosario [place] of 17:33:52 Bere olivier [facility] ALKALINE PHOSPHATASE 2023-02-04 [facility]hav [facility] of 17:33:52 Bere olivier [facility] ALANINE AMINOTRANSFERASE 2023-02-04 [facility] ersity of 17:33:52 Bere olivier [facility] ASPARTATE AMINOTRANSFERASE 2023-02-04 Vaibhav Rosario iversity of 17:33:52 [place] MD Liane olivier [facility] TOTAL PROTEIN 2023-02-04 [facility] lopez[facility]ly [facility], [facility] of 17:33:52 Bere olivier [facility] FRACTIONATED BILIRUBIN 2023-02-04 [facility] sity of 17:33:52 [place] MD Liane olivier [facility] Results CBC 2023-02-04 [facility] of 17:33:52 Bere olivier [facility] MANUAL DIFFERENTIAL 2023-02-04 [facility] Center[facility] lopez [facility] y of 17:33:52 [place] MD Liane olivier [facility] POC GLUCOSE SCREEN 2023-02-01 Simbaqueba Saurabh, Universit y of 18:19:00 [facility] POC GLUCOSE SCREEN 2023-02-01 Simbaqueba Saurabh, Universit y of 12:47:00 Elian [facility] BASIC METABOLIC PANEL, 2023-02-01 [facility], [facility] y of CALCIUM TOTAL 09:00:00 [place] MD Liane olivier [facility] MAGNESIUM LEVEL 2023-02-01 Nabeel, [facility] of 09:00:00 [place] [facility] PHOSPHORUS LEVEL 2023-02-01 [facility] of 09:00:00 [place] MD Liane olivier [facility] COMPLETE BLOOD COUNT W/ 2023-02-01 [facility] of DIFFERENTIAL 09:00:00 [place] MD Liane olivier [facility] GLUCOSE LEVEL 2023-02-01 Nabeel [facility] of 09:00:00 [place] MD Liane olivier [facility] BLOOD UREA NITROGEN 2023-02-01 Nabeel [facility] o f 09:00:00 [place] MD Liane olivier [facility] ELECTROLYTE PANEL 2023-02-01 Nabeel [facility] of 09:00:00 [place] MD Liane olivier [facility] SERUM CREATININE 2023-02-01 Nabeel, [facility] of 09:00:00 [place] MD Anderso [facility] .GLOMERULAR FILTRATION RATE 2023-02-01 [facility] ersity of 09:00:00 [place] MD Liane olivier [facility] CALCIUM LEVEL TOTAL 2023-02-01 [facility] o f 09:00:00 [place] MD Liane olivier [facility] Results CBC 2023-02-01 [facility] of 09:00:00 [place] MD Liane olivier [facility] MANUAL DIFFERENTIAL 2023-02-01 Naebel [facility] o f 09:00:00 [place] MD Liane olivier [facility] POC GLUCOSE SCREEN 2023-02-01 Simbaqueba Saurabh, Universit y of 02:36:00 Elian [place] MD Liane olivier [facility] Center POC GLUCOSE SCREEN 2023-01-31 Simbaqueba Saurabh, Universit y of 21:55:00 [facility] MD Liane olivier [facility] Center POC GLUCOSE SCREEN 2023-01-31 Simbaqueba Saurabh, Universit y of 17:13:00 [facility] MD Liane olivier [facility] POC GLUCOSE SCREEN 2023-01-31 Simbaqueba Saurabh, Universit y of 13:08:00 [facility] MD [facility] BASIC METABOLIC PANEL, 2023-01-31 [facility] y of CALCIUM TOTAL 08:15:00 [place] MD Liane olivier [facility] MAGNESIUM LEVEL 2023-01-31 [facility] of 08:15:00 [place] MD Liane olivier [facility] PHOSPHORUS LEVEL 2023-01-31 [facility] of 08:15:00 [place] MD Liane olivier [facility] COMPLETE BLOOD COUNT W/ 2023-01-31 [facility] ty of DIFFERENTIAL 08:15:00 [place] MD Liane olivier [facility] GLUCOSE LEVEL 2023-01-31 [facility] of 08:15:00 [place] MD Liane olivier [facility] BLOOD UREA NITROGEN 2023-01-31 [facility] o f 08:15:00 [place] MD Liane olivier [facility] ELECTROLYTE PANEL 2023-01-31 [facility] of 08:15:00 [place] MD Liane olivier [facility] SERUM CREATININE 2023-01-31 [facility] of 08:15:00 [place] MD Liane olivier [facility] .GLOMERULAR FILTRATION RATE 2023-01-31 [facility] ersity of 08:15:00 [place] MD Liane olivier [facility] CALCIUM LEVEL TOTAL 2023-01-31 [facility] o f 08:15:00 [place] MD Liane olivier [facility] Results CBC 2023-01-31 [facility] of 08:15:00 [place] MD Liane olivier [facility] MANUAL DIFFERENTIAL 2023-01-31 [facility] o f 08:15:00 [place] MD Liane olivier [facility] Center POC GLUCOSE SCREEN 2023-01-31 Simbaqueba Saurabh, Universit y of 02:23:00 Elian [place] MD Liane olivier [facility] Center POC GLUCOSE SCREEN 2023-01-30 Simbaqueba Saurabh, Universit y of 22:38:00 [facility] MD Liane olivier [facility] Center POC GLUCOSE SCREEN 2023-01-30 Simbaqueba Saurabh, Universit y of 17:51:00 [facility] MD Liane olivier [facility] Center POC GLUCOSE SCREEN 2023-01-30 Simbaqueba Saurabh, Universit y of 14:45:00 [facility] MD [facility] BASIC METABOLIC PANEL, 2023-01-30 [facility] y of CALCIUM TOTAL 08:14:00 [place] MD Liane olivier [facility] MAGNESIUM LEVEL 2023-01-30 [facility] of 08:14:00 [place] MD Liane olivier [facility] PHOSPHORUS LEVEL 2023-01-30 [facility] of 08:14:00 [place] MD Liane olivier [facility] COMPLETE BLOOD COUNT W/ 2023-01-30 [facility] ty of DIFFERENTIAL 08:14:00 [place] MD Liane olivier [facility] GLUCOSE LEVEL 2023-01-30 [facility] of 08:14:00 [place] MD Liane olivier [facility] BLOOD UREA NITROGEN 2023-01-30 [facility] o f 08:14:00 [place] MD Liane olivier [facility] ELECTROLYTE PANEL 2023-01-30 [facility] of 08:14:00 [place] MD Liane olivier [facility] SERUM CREATININE 2023-01-30 [facility] of 08:14:00 Bere olivier [facility] .GLOMERULAR FILTRATION RATE 2023-01-30 [facility] ersity of 08:14:00 Bere olivier [facility] CALCIUM LEVEL TOTAL 2023-01-30 [facility] o f 08:14:00 Bere olivier [facility] Results CBC 2023-01-30 Nabeel, [facility] of 08:14:00 Bere olivier [facility] MANUAL DIFFERENTIAL 2023-01-30 [facility] o f 08:14:00 Bere olivier [facility] POC GLUCOSE SCREEN 2023-01-30 Simbaradha Saurabh, Universit y of 02:40:00 Elian olivier [facility] POC GLUCOSE SCREEN 2023-01-30 Simbaradha Saurabh, Universit y of 00:24:00 Elian Rob [facility] POC GLUCOSE SCREEN 2023-01-29 Simbaradha Deshpande Universit y of 22:51:00 Elian Rob [facility] VERIFY CATHETER TIP PLACEMENT 2023-01-29 Justo Banuelos [place] of 20:08:01 Bere olivier [facility] XR CHEST 1 VW POST IMPLANT 2023-01-29 Kt Deshpande U niversity of 19:59:15 Elian Rob [facility] INSERT VASCULAR ACCESS DEVICE 2023-01-29 Kt Deshpande University of 19:04:31 Elian olivier [facility] POC GLUCOSE SCREEN 2023-01-29 Simbaradha Deshpande Universit y of 19:04:00 Elian Rob [facility] POC GLUCOSE SCREEN 2023-01-29 Simbaqueba Saurabh, Universit y of 13:50:00 Elian Rob [facility] BASIC METABOLIC PANEL, 2023-01-29 [facility] y of CALCIUM TOTAL 08:33:00 Bere olivier [facility] MAGNESIUM LEVEL 2023-01-29 [facility] of 08:33:00 Bere olivier [facility] PHOSPHORUS LEVEL 2023-01-29 [facility] of 08:33:00 Bere Rob [facility] COMPLETE BLOOD COUNT W/ 2023-01-29 [facility] ty of DIFFERENTIAL 08:33:00 [place] MD Liane olivier [facility] GLUCOSE LEVEL 2023-01-29 [facility] of 08:33:00 [place] MD Liane olivier [facility] BLOOD UREA NITROGEN 2023-01-29 [facility] o f 08:33:00 [place] MD Liane olivier [facility] ELECTROLYTE PANEL 2023-01-29 [facility] of 08:33:00 [place] MD Liane olivier [facility] SERUM CREATININE 2023-01-29 [facility] of 08:33:00 [place] MD Rob [facility] .GLOMERULAR FILTRATION RATE 2023-01-29 [facility] ersity of 08:33:00 [place] MD Liane olivier [facility] CALCIUM LEVEL TOTAL 2023-01-29 [facility] o f 08:33:00 [place] MD Liane olivier [facility] Results CBC 2023-01-29 [facility] of 08:33:00 [place] MD Liane olivier [facility] MANUAL DIFFERENTIAL 2023-01-29 [facility] o f 08:33:00 [place] MD Liane olivier [facility] Center POC GLUCOSE SCREEN 2023-01-29 Simbaqueba Saurabh, Universit y of 03:21:00 Elian olivier [facility] Center POC GLUCOSE SCREEN 2023-01-28 Simbaqueba Saurabh, Universit y of 23:27:00 Elian [facility]ier [facility] POC GLUCOSE SCREEN 2023-01-28 Simbaqueba Saurabh, Universit y of 17:57:00 Elian olivier [facility] POC GLUCOSE SCREEN 2023-01-28 Simbaqueba Saurabh, Universit y of 15:38:00 Elian olivier [facility] Center HEMOGLOBIN 2023-01-28 [facility] of 13:24:00 [place] Liane olivier [facility] HEMATOCRIT 2023-01-28 Gio [facility] of 13:24:00 [place] MD Liane olivier [facility] POC GLUCOSE SCREEN 2023-01-28 Simbaqueba Saurabh, Universit y of 13:17:00 Elian olivier [facility] HEMOGLOBIN 2023-01-28 GioMana [place] of 08:00:00 [place] Liane olivier [facility] HEMATOCRIT 2023-01-28 [facility] of 08:00:00 [place] MD Liane olivier [facility] BASIC METABOLIC PANEL, 2023-01-28 [facility] y of CALCIUM TOTAL 08:00:00 [place] MD Liane olivier [facility] MAGNESIUM LEVEL 2023-01-28 [facility] of 08:00:00 [place] MD Liane olivier [facility] PHOSPHORUS LEVEL 2023-01-28 [facility] of 08:00:00 [place] [facility] COMPLETE BLOOD COUNT W/ 2023-01-28 [facility] ty of DIFFERENTIAL 08:00:00 [place] MD Liane olivier [facility] GLUCOSE LEVEL 2023-01-28 [facility] of 08:00:00 [place] [facility] BLOOD UREA NITROGEN 2023-01-28 [facility] o f 08:00:00 [place] MD Liane olivier [facility] ELECTROLYTE PANEL 2023-01-28 [facility] of 08:00:00 [place] [facility] SERUM CREATININE 2023-01-28 [facility] of 08:00:00 [place] MD Rob [facility] .GLOMERULAR FILTRATION RATE 2023-01-28 [facility] ersity of 08:00:00 [place] [facility] CALCIUM LEVEL TOTAL 2023-01-28 [facility] o f 08:00:00 [place] MD Liane olivier [facility] Results CBC 2023-01-28 [facility] of 08:00:00 [place] MD Liane olivier [facility] MANUAL DIFFERENTIAL 2023-01-28 [facility] o f 08:00:00 [place] Liane olivier [facility] POC GLUCOSE SCREEN 2023-01-28 [facility] of 03:34:00 Jaycee [place] Rob [facility] POC GLUCOSE SCREEN 2023-01-28 [facility] of 00:42:00 Jaycee [place] Liane olivier [facility] HEMOGLOBIN 2023-01-27 Gio Mana [place] of 21:15:00 [place] Liane olivier [facility] HEMATOCRIT 2023-01-27 Mana Powers [place] of 21:15:00 [place] Liane olivier [facility] POC GLUCOSE SCREEN 2023-01-27 [facility] of 19:38:00 Jaycee [place] Liane olivier [facility] POC GLUCOSE SCREEN 2023-01-27 [facility] Amanda [place] of 16:11:00 [place] Liane olivier [facility] POC GLUCOSE SCREEN 2023-01-27 [facility] Amanda [place] of 13:43:00 [place] [facility] BASIC METABOLIC PANEL, 2023-01-27 [facility] y of CALCIUM TOTAL 07:48:00 [place] MD Liane olivier [facility] MAGNESIUM LEVEL 2023-01-27 [facility] of 07:48:00 [place] Liane olivier [facility] PHOSPHORUS LEVEL 2023-01-27 [facility] of 07:48:00 [place] [facility] COMPLETE BLOOD COUNT W/ 2023-01-27 [facility] ty of DIFFERENTIAL 07:48:00 [place] MD Carreon soy [facility] GLUCOSE LEVEL 2023-01-27 [facility] of 07:48:00 [place] [facility] BLOOD UREA NITROGEN 2023-01-27 [facility] o f 07:48:00 [place] Liane olivier [facility] ELECTROLYTE PANEL 2023-01-27 [facility] of 07:48:00 [place] [facility] SERUM CREATININE 2023-01-27 [facility] of 07:48:00 [place] MD Liane olivier [facility] .GLOMERULAR FILTRATION RATE 2023-01-27 [facility] ersity of 07:48:00 [place] [facility] CALCIUM LEVEL TOTAL 2023-01-27 [facility] o f 07:48:00 [place] MD Liane olivier [facility] Results CBC 2023-01-27 [facility] of 07:48:00 [place] MD Liane olivier [facility] MANUAL DIFFERENTIAL 2023-01-27 [facility] o f 07:48:00 [place] MD Liane olivier [facility] POC GLUCOSE SCREEN 2023-01-27 [facility] 04:16:00 Bere olivier [facility] URINE CULTURE 2023-01-27 Amanda Porctor of 03:45:00 Bere olivier [facility] URINALYSIS WITH MICROSCOPIC 2023-01-27 Amanda Proctor ersity of IF INDICATED 03:45:00 Bere olivier [facility] URINALYSIS MICROSCOPIC EXAM 2023-01-27 Amanda Proctor ersity of 03:45:00 Bere olivier [facility] POC GLUCOSE SCREEN 2023-01-27 [facility] of 00:34:00 [place] [facility] POC GLUCOSE SCREEN 2023-01-26 [facility] of 22:30:00 Bere GRIFFIN [facility] COVID-19 (SARS-COV-2) 2023-01-26 Amanda Proctor of ASYMPTOMATIC-LT 21:34:00 Bere GRIFFIN [facility] BLOODCULTURE 2023-01-26 Amanda Proctor of 19:44:00 Bere Rob [facility] COMPLETE BLOOD COUNT W/ 2023-01-26 Amanda Proctor ty of DIFFERENTIAL 19:44:00 Bere olivier [facility] MAGNESIUM LEVEL 2023-01-26 Amanda Proctor of 19:44:00 [place] [facility] PHOSPHORUS LEVEL 2023-01-26 Amanda Proctor of 19:44:00 [place] [facility] FRACTIONATED BILIRUBIN 2023-01-26 Amanda Proctorit y of 19:44:00 Bere olivier [facility] AMYLASE LEVEL 2023-01-26 Amanda Proctor of 19:44:00 [place] [facility] LIPASE LEVEL 2023-01-26 Amanda Proctor of 19:44:00 Bere GRIFFIN [facility] LACTATE DEHYDROGENASE 2023-01-26 Amanda Proctor of 19:44:00 Bere GRIFFIN [facility] C REACTIVE PROTEIN 2023-01-26 Amanda Proctor of 19:44:00 [place] [facility] COMPREHENSIVE METABOLIC PANEL 2023-01-26 Amanda Proctor iversity of 19:44:00 [place] MD Anderso [facility] PROCALCITONIN 2023-01-26 Amanda Proctor [place] of 19:44:00 [place] [facility] Results CBC 2023-01-26 Amanda Proctor [place] of 19:44:00 [place] [facility] MANUAL DIFFERENTIAL 2023-01-26 Amanda Proctor [place] o f 19:44:00 [place] MD Carreon soy [facility] GLUCOSE LEVEL 2023-01-26 Amanda Proctor [place] of 19:44:00 [place] [facility] BLOOD UREA NITROGEN 2023-01-26 Amanda Proctor [place] o f 19:44:00 [place] [facility] soy [facility] ELECTROLYTE PANEL 2023-01-26 Amanda Proctor [place] of 19:44:00 [place] [facility] SERUM CREATININE 2023-01-26 Amanda Proctor [place] of 19:44:00 [place] [facility] .GLOMERULAR FILTRATION RATE 2023-01-26 Amanda Proctor [facility] ersity of 19:44:00 [place] MD [facility] CALCIUM LEVEL TOTAL 2023-01-26 Amanda Proctor [place] o f 19:44:00 [place] [facility] ALBUMIN LEVEL 2023-01-26 Amanda Proctor [place] of 19:44:00 [place] [facility] ALKALINE PHOSPHATASE 2023-01-26 Amanda Proctor [place] of 19:44:00 [place] [facility] soy [facility] ALANINE AMINOTRANSFERASE 2023-01-26 Amanda Proctor [facility] ity of 19:44:00 [place] [facility] ASPARTATE AMINOTRANSFERASE 2023-01-[address] [facility] rsity of 19:44:00 [place] [facility] TOTAL PROTEIN 2023-01-26 Amanda Proctor [place] of 19:44:00 [place] [facility] COMPREHENSIVE METABOLIC PANEL 2023-01-20 Lorena Hdez [place] of 17:53:46 [place] [facility] COMPLETE BLOOD COUNT W/ 2023-01-20 Lorena Hdez [facility] versity of DIFFERENTIAL 17:53:46 [place] [facility] MAGNESIUM LEVEL 2023-01-20 Lorena Hdez [place] of 17:53:46 [place] MD Rob [facility] PHOSPHORUS LEVEL 2023-01-20 [facility] of 17:53:46 Bere olivier [facility] GLUCOSE LEVEL 2023-01-20 [facility] of 17:53:46 [place] MD Rob [facility] BLOOD UREA NITROGEN 2023-01-20 [facility] ity of 17:53:46 Bere olivier [facility] ELECTROLYTE PANEL 2023-01-20 [facility] CenterSimonaLorenaOchsner Medical Centerit y of 17:53:46 [place] MD Rob [facility] SERUM CREATININE 2023-01-20 [facility] of 17:53:46 [place] [facility] .GLOMERULAR FILTRATION RATE 2023-01-20 [facility] of 17:53:46 Bere olivier [facility] CALCIUM LEVEL TOTAL 2023-01-20 [facility] 17:53:46 Bere olivier [facility] ALBUMIN LEVEL 2023-01-20 [facility] of 17:53:46 [place] MD Rob [facility] ALKALINE PHOSPHATASE 2023-01-20 [facility] sity of 17:53:46 Bere olivier [facility] ALANINE AMINOTRANSFERASE 2023-01-20 [facility] iversity of 17:53:46 [place] [facility] ASPARTATE AMINOTRANSFERASE 2023-01-20 [facility] of 17:53:46 Bere olivier [facility] TOTAL PROTEIN 2023-01-20 [facility] of 17:53:46 [place] MD Liane olivier [facility] FRACTIONATED BILIRUBIN 2023-01-20 [facility] ersity of 17:53:46 Bere olivier [facility] Results CBC 2023-01-20 [facility] of 17:53:46 [place] Rob [facility] MANUAL DIFFERENTIAL 2023-01-20 [facility] of 17:53:46 [place] MD Rob [facility] CONTROLLED SUBSTANCE 2023-01-20 [employer] of MONITORING PANEL, URINE 17:37:00 Rogerio [place] [facility] TETRAHYDROCANNABINOL 2023-01-20 [facility], UR 17:37:00 Rogerio [place] [facility] POC URINE DRUG SCREEN PANEL, 2023-01-20 Judy Kramer versity of QUALITATIVE 17:37:00 [facility] [place] [facility] POC GLUCOSE SCREEN 2023-01-18 [facility] of 18:10:00 [place] [facility] POC GLUCOSE SCREEN 2023-01-18 [facility] of 12:46:00 [place] [facility] BASIC METABOLIC PANEL, 2023-01-18 Ankit Locke rsity of CALCIUM TOTAL 09:03:00 [place] [facility] MAGNESIUM LEVEL 2023-01-18 Ankit Locke [place] f 09:03:00 [place] [facility] PHOSPHORUS LEVEL 2023-01-18 Ankit Locke [place] of 09:03:00 [place] [facility] COMPLETE BLOOD COUNT W/ 2023-01-18 Ankit Locke ersity of DIFFERENTIAL 09:03:00 [place] [facility] GLUCOSE LEVEL 2023-01-18 Ankit Locke [place] o f 09:03:00 [place] [facility] BLOOD UREA NITROGEN 2023-01-18 Anikt Locke [facility] ty of 09:03:00 [place] [facility] ELECTROLYTE PANEL 2023-01-18 Ankit Locke [place] of 09:03:00 [place] [facility] SERUM CREATININE 2023-01-18 Ankit Locke [place] of 09:03:00 [place] [facility] .GLOMERULAR FILTRATION RATE 2023-01-18 Ankit Locke [place] of 09:03:00 [place] [facility] CALCIUM LEVEL TOTAL 2023-01-18 Ankit Locke [facility] ty of 09:03:00 [place] [facility] Results CBC 2023-01-18 Ankit Locke [place] f 09:03:00 [place] Liane olivier [facility] MANUAL DIFFERENTIAL 2023-01-18 Ankit Locke [facility] ty of 09:03:00 [place] Liane olivier [facility] POC GLUCOSE SCREEN 2023-01-18 [facility] of 02:33:00 [place] [facility] POC GLUCOSE SCREEN 2023-01-17 [facility] of 23:22:00 [place] [facility] POC GLUCOSE SCREEN 2023-01-17 [facility] of 17:43:00 [place] [facility] POC GLUCOSE SCREEN 2023-01-17 [facility] of 13:58:00 [place] [facility] BASIC METABOLIC PANEL, 2023-01-[address] [facility] rsity of CALCIUM TOTAL 09:31:00 [place] [facility] MAGNESIUM LEVEL 2023-01-17 Ankit Locke [place] f 09:31:00 [place] Rob [facility] PHOSPHORUS LEVEL 2023-01-17 Ankit Locke [place] of 09:31:00 [place] [facility] COMPLETE BLOOD COUNT W/ 2023-01-17 Ankit Locke ersity of DIFFERENTIAL 09:31:00 [place] Liane olivier [facility] GLUCOSE LEVEL 2023-01-17 Ankit Locke [place] f 09:31:00 [place] Liane olivier [facility] BLOOD UREA NITROGEN 2023-01-17 Ankit Locke [facility] ty of 09:31:00 [place] Liane olivier [facility] ELECTROLYTE PANEL 2023-01-17 Ankit Locke [place] of 09:31:00 [place] [facility] SERUM CREATININE 2023-01-17 Ankit Locke [place] of 09:31:00 [place] [facility] .GLOMERULAR FILTRATION RATE 2023-01-17 Ankit Locke [place] of 09:31:00 [place] [facility] CALCIUM LEVEL TOTAL 2023-01-17 Ankit Locke [facility] ty of 09:31:00 [place] Liane olivier [facility] Results CBC 2023-01-17 Ankit Locke [place] f 09:31:00 [place] Liane olivier [facility] MANUAL DIFFERENTIAL 2023-01-17 Ankit Locke [facility] ty of 09:31:00 [place] [facility] POC GLUCOSE SCREEN 2023-01-17 [facility] of 01:43:00 [place] [facility] POC GLUCOSE SCREEN 2023-01-16 [facility] of 22:16:00 [place] [facility] POC GLUCOSE SCREEN 2023-01-16 [facility] of 17:25:00 [place] [facility] POC GLUCOSE SCREEN 2023-01-16 [facility] of 14:01:00 [place] [facility] BASIC METABOLIC PANEL, 2023-01-16 Ankit Locke [facility] rsity of CALCIUM TOTAL 11:22:00 [place] [facility] MAGNESIUM LEVEL 2023-01-16 Ankit Locke [place] f 11:22:00 [place] [facility] PHOSPHORUS LEVEL 2023-01-16 Ankit Locke [place] of 11:22:00 [place] [facility] COMPLETE BLOOD COUNT W/ 2023-01-16 Ankit Locke [facility] ersity of DIFFERENTIAL 11:22:00 [place] [facility] GLUCOSE LEVEL 2023-01-16 Ankit Locke [place] f 11:22:00 [place] [facility] BLOOD UREA NITROGEN 2023-01-16 Ankit Locke [facility] ty of 11:22:00 [place] [facility] ELECTROLYTE PANEL 2023-01-16 Ankit Locke [place] of 11:22:00 [place] [facility] SERUM CREATININE 2023-01-16 Ankit Locke [place] of 11:22:00 [place] [facility] .GLOMERULAR FILTRATION RATE 2023-01-16 Ankit Locke [place] of 11:22:00 [place] [facility] CALCIUM LEVEL TOTAL 2023-01-16 Ankit Locke [facility] ty of 11:22:00 [place] Liane olivier [facility] Results CBC 2023-01-16 Ankit Locke [place] f 11:22:00 [place] Liane olivier [facility] MANUAL DIFFERENTIAL 2023-01-16 Ankit Locke [facility] ty of 11:22:00 [place] [facility] soy [facility] POC GLUCOSE SCREEN 2023-01-16 [facility] of 01:34:00 [place] [facility] POC GLUCOSE SCREEN 2023-01-15 [facility] of 23:29:00 [place] [facility] POC GLUCOSE SCREEN 2023-01-15 [facility] of 18:11:00 [place] [facility] POC GLUCOSE SCREEN 2023-01-15 [facility] of 13:12:00 [place] [facility] BASIC METABOLIC PANEL, 2023-01-[address] [facility] rsity of CALCIUM TOTAL 07:23:00 [place] [facility] MAGNESIUM LEVEL 2023-01-15 Ankit Locke [place] f 07:23:00 [place] Liane olivier [facility] PHOSPHORUS LEVEL 2023-01-15 Ankit Locke [place] of 07:23:00 [place] [facility] COMPLETE BLOOD COUNT W/ 2023-01-15 Ankit Locke [facility] ersity of DIFFERENTIAL 07:23:00 [place] Liane olivier [facility] GLUCOSE LEVEL 2023-01-15 Ankit Locke o f 07:23:00 [place] [facility] BLOOD UREA NITROGEN 2023-01-15 Ankit Locke [facility] ty of 07:23:00 [place] [facility] ELECTROLYTE PANEL 2023-01-15 Ankit Locke [place] of 07:23:00 [place] [facility] SERUM CREATININE 2023-01-15 Ankit Locke [place] of 07:23:00 [place] [facility] .GLOMERULAR FILTRATION RATE 2023-01-15 Ankit Locke [place] of 07:23:00 [place] Rob [facility] CALCIUM LEVEL TOTAL 2023-01-15 Ankit Locke [facility] ty of 07:23:00 [place] MD iLane olivier [facility] Results CBC 2023-01-15 Ankit Locke [place] f 07:23:00 [place] Liane olivier [facility] MANUAL DIFFERENTIAL 2023-01-15 Ankit Locke [facility] ty of 07:23:00 [place] [facility] POC GLUCOSE SCREEN 2023-01-15 [facility] of 03:18:00 [place] [facility] POC GLUCOSE SCREEN 2023-01-15 [facility] of 00:17:00 [place] [facility] POC GLUCOSE SCREEN 2023-01-14 [facility] of 19:43:00 [place] [facility] POC GLUCOSE SCREEN 2023-01-14 [facility] of 14:54:00 [place] [facility] POC GLUCOSE SCREEN 2023-01-14 [facility] of 12:55:00 [place] [facility] BASIC METABOLIC PANEL, 2023-01-14 Ankit Locke [facility] rsity of CALCIUM TOTAL 08:31:00 [place] Liane olivier [facility] MAGNESIUM LEVEL 2023-01-14 Ankit Locke [place] f 08:31:00 [place] [facility] PHOSPHORUS LEVEL 2023-01-14 Ankit Locke [place] of 08:31:00 [place] [facility] COMPLETE BLOOD COUNT W/ 2023-01-14 Ankit Locke [facility] ersity of DIFFERENTIAL 08:31:00 [place] [facility] GLUCOSE LEVEL 2023-01-14 Ankit Locke o f 08:31:00 [place] Rob [facility] BLOOD UREA NITROGEN 2023-01-14 Ankit Locke [facility] ty of 08:31:00 [place] [facility] ELECTROLYTE PANEL 2023-01-14 Ankit Locke [place] of 08:31:00 [place] [facility] SERUM CREATININE 2023-01-14 Ankit Locke of 08:31:00 [place] [facility] .GLOMERULAR FILTRATION RATE 2023-01-14 Ankit Locke [place] of 08:31:00 [place] [facility] CALCIUM LEVEL TOTAL 2023-01-14 Ankit Locke [facility] ty of 08:31:00 [place] [facility] Results CBC 2023-01-14 Ankit Locke [place] f 08:31:00 [place] [facility] MANUAL DIFFERENTIAL 2023-01-14 Ankit Locke [facility] ty of 08:31:00 [place] [facility] POC GLUCOSE SCREEN 2023-01-14 [facility] of 03:05:00 [place] [facility] POC GLUCOSE SCREEN 2023-01-13 [facility] of 23:08:00 [place] [facility] POC GLUCOSE SCREEN 2023-01-13 [facility] of 18:04:00 [place] [facility] POC GLUCOSE SCREEN 2023-01-13 [facility] of 16:39:00 [place] [facility] POC GLUCOSE SCREEN 2023-01-13 [facility] of 14:36:00 [place] [facility] POC GLUCOSE SCREEN 2023-01-13 [facility] of 12:31:00 [place] [facility] BASIC METABOLIC PANEL, 2023-01-13 Ankit Locke [facility] rsity of CALCIUM TOTAL 07:55:00 [place] [facility] MAGNESIUM LEVEL 2023-01-13 Ankit Locke [place] f 07:55:00 [place] [facility] PHOSPHORUS LEVEL 2023-01-13 Ankit Locke [place] of 07:55:00 [place] [facility] COMPLETE BLOOD COUNT W/ 2023-01-13 Ankit Locke [facility] ersity of DIFFERENTIAL 07:55:00 [place] [facility] GLUCOSE LEVEL 2023-01-13 Irina Houston [place] of 07:55:00 [place] [facility] BLOOD UREA NITROGEN 2023-01-13 CelsoIrina olivier [place] of 07:55:00 [place] [facility] ELECTROLYTE PANEL 2023-01-13 CelsoIrina olivier [place] of 07:55:00 [place] [facility] SERUM CREATININE 2023-01-13 CelsoIrina olivier [place] of 07:55:00 [place] [facility] .GLOMERULAR FILTRATION RATE 2023-01-13 Irina Houston [facility] versity of 07:55:00 [place] [facility] CALCIUM LEVEL TOTAL 2023-01-13 CelsoIrina olivier [place] of 07:55:00 [place] [facility] Results CBC 2023-01-13 CelsoIrina olivier [place] of 07:55:00 [place] [facility] MANUAL DIFFERENTIAL 2023-01-13 CelsoIrina olivier [place] of 07:55:00 [place] [facility] POC GLUCOSE SCREEN 2023-01-13 [facility] of 03:31:00 [place] [facility] POC GLUCOSE SCREEN 2023-01-13 [facility] of 00:05:00 [place] [facility] POC GLUCOSE SCREEN 2023-01-12 [facility] of 18:51:00 [place] [facility] POC GLUCOSE SCREEN 2023-01-12 [facility] of 18:00:00 [place] [facility] POC GLUCOSE SCREEN 2023-01-12 Roberto Carlos Walsh [place] of 14:16:00 [place] [facility] POC GLUCOSE SCREEN 2023-01-12 Roberto Carlos Walsh [place] of 12:55:00 [place] [facility] POC GLUCOSE SCREEN 2023-01-12 Nico [facility] of 10:59:00 [place] [facility] BASIC METABOLIC PANEL, 2023-01-[address] [facility] rsity of CALCIUM TOTAL 08:03:00 [place] [facility] MAGNESIUM LEVEL 2023-01-12 Ankit Locke [place] f 08:03:00 [place] [facility] PHOSPHORUS LEVEL 2023-01-12 Ankit Locke [place] of 08:03:00 [place] [facility] COMPLETE BLOOD COUNT W/ 2023-01-12 Ankit Locke [facility] ersity of DIFFERENTIAL 08:03:00 [place] [facility] GLUCOSE LEVEL 2023-01-12 CelsoIrina olivier [place] of 08:03:00 [place] [facility] BLOOD UREA NITROGEN 2023-01-12 CelsoIrina olivier [place] of 08:03:00 [place] [facility] ELECTROLYTE PANEL 2023-01-12 CelsoIrina olivier [place] of 08:03:00 [place] [facility] SERUM CREATININE 2023-01-12 [facility] [place] [facility] 08:03:00 [place] [facility] .GLOMERULAR FILTRATION RATE 2023-01-12 Irina Houston [facility] versity of 08:03:00 [place] [facility] CALCIUM LEVEL TOTAL 2023-01-12 CelsoIrina olivier [facility] 08:03:00 [place] [facility] Results CBC 2023-01-12 CelsoIrina olivier [place] of 08:03:00 [place] [facility] MANUAL DIFFERENTIAL 2023-01-12 CelsoIrina olivier [facility] 08:03:00 [place] [facility] POC GLUCOSE SCREEN 2023-01-12 Roberto Carlos Walsh [place] of 06:58:00 [place] [facility] COVID-19 (SARS-COV-2) 2023-01-12 Nguyen B[facility] ity of ASYMPTOMATIC-LT 03:25:00 [place] [facility] XR KNEE 1 OR 2 VW RIGHT 2023-01-12 Nguyen Barcenas rsity of 03:22:08 [place] [facility] POC GLUCOSE SCREEN 2023-01-12 Roberto Carlos Walsh of 01:37:00 [place] [facility] CT HEAD WO CONTRAST 2023-01-11 Nguyen Barcenas [facility] of 23:29:12 [place] [facility] COMPLETE BLOOD COUNT W/ 2023-01-11 Nguyen Barcenase rsity of DIFFERENTIAL 21:11:00 [place] [facility] COMPREHENSIVE METABOLIC PANEL 2023-01-11 Nguyen Barcenas [facility] of :11:00 [place] [facility] MAGNESIUM LEVEL 2023-01-11 Nguyen Barcenas [facility] of :11:00 [facility] PHOSPHORUS LEVEL 2023-01-11 Nguyen Barc[facility] [employer] o f 21:11:00 [facility] PROTHROMBIN TIME 2023-01-11 Nguyen B[facility]enas [facility] o f 21:11:00 [place] [facility] APTT 2023-01-11 Nguyen Barcenas [facility] of :11:00 [facility] Results CBC 2023-01-11 Nguyen Barcenas [facility] of :11:00 [facility] MANUAL DIFFERENTIAL 2023-01-11 Nguyen Barcenas [facility] of 21:11:00 [place] [facility] GLUCOSE LEVEL 2023-01-11 Nguyen Barcenas [facility] of :11:00 [facility] BLOOD UREA NITROGEN 2023-01-11 Nguyen [facility]arcenas [facility] of 21:11:00 [facility] ELECTROLYTE PANEL 2023-01-11 Nguyen Barcenas [facility] of :11:00 [facility] SERUM CREATININE 2023-01-11 Nguyen Barcenas [facility] o f 21:11:00 [facility] .GLOMERULAR FILTRATION RATE 2023-01-11 Nguyen Barcenas U niversity of :11:00 [place] [facility] CALCIUM LEVEL TOTAL 2023-01-11 Nguyen Barcenas [facility] of 21:11:00 [place] [facility] ALBUMIN LEVEL 2023-01-11 Nguyen Barcenas [facility] of 21:11:00 [facility] ALKALINE PHOSPHATASE 2023-01-11 Nguyen Barcenas [facility]i ty of 21:11:00 [facility] ALANINE AMINOTRANSFERASE 2023-01-11 Nguyen [facility]arcenas [facility] ersity of 21:11:00 [place] [facility] ASPARTATE AMINOTRANSFERASE 2023-01-11 Nguyen Barcenas iversity of 21:11:00 [place] [facility] TOTAL PROTEIN 2023-01-11 Nguyen Barcenas [facility] of 21:11:00 [place] [facility] FRACTIONATED BILIRUBIN 2023-01-11 Nguyen Barcenas [facility] sity of 21:11:00 [place] [facility] COMPREHENSIVE METABOLIC PANEL 2023-01-07 Lorena Hdez [place] of 14:28:23 [place] [facility] COMPLETE BLOOD COUNT W/ 2023-01-07 Lorena Hdez [facility] versity of DIFFERENTIAL 14:28:23 [place] [facility] MAGNESIUM LEVEL 2023-01-07 Lorena Hdez [place] of 14:28:23 [place] [facility] PHOSPHORUS LEVEL 2023-01-07 Lorena Hdez [place] of 14:28:23 [place] [facility] GLUCOSE LEVEL 2023-01-07 [facility] 14:28[facility]23 [place] [facility] BLOOD UREA NITROGEN 2023-01-07 Lorena Hdez [facility] ity of 14:28:23 [place] [facility] ELECTROLYTE PANEL 2023-01-07 [facility] 14:28:23 [place] [facility] SERUM CREATININE 2023-01-07 Lorena Hdez [place] of 14:28:23 [place] [facility] .GLOMERULAR FILTRATION RATE 2023-01-07 Lorena Hdez [place] of 14:28:23 [place] [facility] CALCIUM LEVEL TOTAL 2023-01-07 Lorena Hdez [facility] ity of 14:28:23 [place] [facility] ALBUMIN LEVEL 2023-01-07 Lorena Hdez [place] of 14:28:23 [place] [facility] ALKALINE PHOSPHATASE 2023-01-07 Lorena Hdez [facility] sity of 14:28:23 [place] [facility] ALANINE AMINOTRANSFERASE 2023-01-07 Lorena Hdez Un iversity of 14:28:23 [place] [facility] ASPARTATE AMINOTRANSFERASE 2023-01-07 Lorena Hdez [place] of 14:28:23 [place] [facility] TOTAL PROTEIN 2023-01-07 Lorena Hdez [place] of 14:28:23 [place] [facility] FRACTIONATED BILIRUBIN 2023-01-07 Lorena Hdez [facility] ersity of 14:28:23 [place] [facility] Results CBC 2023-01-07 Lorena Hdez [place] of 14:28:23 [place] [facility] MANUAL DIFFERENTIAL 2023-01-07 Lorena Hdez [facility] ity of 14:28:23 [place] [facility] COMPREHENSIVE METABOLIC PANEL 2023-01-01 Lorena Hdez [place] of 14:26:43 [place] [facility] COMPLETE BLOOD COUNT W/ 2023-01-01 Lorena Hdez [facility] versity of DIFFERENTIAL 14:26:43 [place] [facility] MAGNESIUM LEVEL 2023-01-01 Lorena Hdez [place] of 14:26:43 [place] [facility] PHOSPHORUS LEVEL 2023-01-01 Lorena Hdez [place] of 14:26:43 [place] [facility] GLUCOSE LEVEL 2023-01-01 Lorena Hdez [place] of 14:26:43 [facility] BLOOD UREA NITROGEN 2023-01-01 Lorena Hdez [facility] ity of 14:26:43 [place] [facility] ELECTROLYTE PANEL 2023-01-01 [facility] 14:26:43 Bere [facility]FFIN [facility] SERUM CREATININE 2023-01-01 Lorena Hdez [place] of 14:26:43 [place] [facility] .GLOMERULAR FILTRATION RATE 2023-01-01 Lorena Hdez [place] of 14:26:43 Bere GRIFFIN [facility] CALCIUM LEVEL TOTAL 2023-01-01 Lorena Hdez [facility] ity of 14:26:43 [place] MD Liane olivier [facility] ALBUMIN LEVEL 2023-01-01 [facility] 14:26:43 [place] Liane olivier [facility] ALKALINE PHOSPHATASE 2023-01-01 Lorena Hdez [facility] sity of 14:26:43 [place] [facility] ALANINE AMINOTRANSFERASE 2023-01-01 Lorena Hdez iversity of 14:26:43 [place] [facility] ASPARTATE AMINOTRANSFERASE 2023-01-01 [facility] of 14:26:43 [place] [facility] TOTAL PROTEIN 2023-01-01 [facility] of 14:26:43 [place] [facility] FRACTIONATED BILIRUBIN 2023-01-01 [facility] of 14:26:43 [place] [facility] Results CBC 2023-01-01 [facility] of 14:26:43 [place] [facility] MANUAL DIFFERENTIAL 2023-01-01 Lorena Hdez [facility] ity of 14:26:43 [place] [facility] [place] VISUAL FIELD, 2022-12-29 Suzanne Mcgrath [facility] ity of INTERMEDIATE - OU - BOTH EYES 16:51:16 Dereck astudillo MD [facility] OCT, OPTIC NERVE - OU - BOTH 2022-12-29 Suzanne Mcgrath U niversity of EYES 16:43:49 [place] [facility] OCT, RETINA - OU - BOTH EYES 2022-12-29 Suzanne Mcgrath U niversity of 16:43:47 [place] [facility] COMPREHENSIVE METABOLIC PANEL 2022-12-24 Lorena Hdez [facility] of 15:16:00 [place] [facility] COMPLETE BLOOD COUNT W/ 2022-12-24 Lorena Hdez [facility] versity of DIFFERENTIAL 15:16:00 [place] [facility] MAGNESIUM LEVEL 2022-12-24 [facility] of 15:16:00 [place] [facility] PHOSPHORUS LEVEL 2022-12-24 [facility] of 15:16:00 [place] MD [facility] GLUCOSE LEVEL 2022-12-24 [facility] of 15:16:00 [place] [facility] BLOOD UREA NITROGEN 2022-12-24 [facility] of 15:16:00 [place] [facility] ELECTROLYTE PANEL 2022-12-24 Simona Hdezfer KaylaPalm Beach Gardens Medical Centerit y of 15:16:00 [place] [facility] SERUM CREATININE 2022-12-24 [facility]Nov[facility] of 15:16:00 [place] [facility] .GLOMERULAR FILTRATION RATE 2022-12-24 [facility]Nov[facility] of 15:16:00 [place] [facility] CALCIUM LEVEL TOTAL 2022-12-24 [facility] ity of 15:16:00 [place] [facility] ALBUMIN LEVEL 2022-12-24 [facility]Nov[facility] of 15:16:00 [place] [facility] ALKALINE PHOSPHATASE 2022-12-24 Simona Hdezfer [facility] sity of 15:16:00 [place] [facility] ALANINE AMINOTRANSFERASE 2022-12-24 HdezSimonaLorena Kayla Un iversity of 15:16:00 [place] [facility] ASPARTATE AMINOTRANSFERASE 2022-12-24 [facility]Nov[facility] of 15:16:00 [place] [facility] TOTAL PROTEIN 2022-12-24 [facility]dezNov[facility] of 15:16:00 [place] [facility] FRACTIONATED BILIRUBIN 2022-12-24 [facility]Ball[facility] ersity of 15:16:00 [place] [facility] Results CBC 2022-12-24 [facility] of 15:16:00 [place] [facility] MANUAL DIFFERENTIAL 2022-12-24 Simona Hdezfer KaylaPal[facility] ity of 15:16:00 [place] [facility] COVID-19 (SARS-COV-2) 2022-12-23 Winter Luu [facility] sity of PCR-ASYMPTOMATIC MC 18:01:00 [place] [facility] POC GLUCOSE SCREEN 2022-12-16 [facility] of 00:07:00 [place] [facility] POC GLUCOSE SCREEN 2022-12-15 [facility] of 18:52:00 [place] [facility] OCT, OPTIC NERVE - OU - BOTH 2022-12-15 [facility] versity of EYES 16:37:29 [place] [facility] OCT, RETINA - OU - BOTH EYES 2022-12-15 [facility] versity of 16:37:23 [place] [facility] FUNDUS PHOTOS - OU - BOTH 2022-12-15 [facility] sity of EYES 16:37:12 [place] [facility] 3D DENTAL IMAGING (ICAT) 2022-12-15 Wilder Soliz [facility] ity of 14:42:55 [place] [facility] POC GLUCOSE SCREEN 2022-12-15 [facility] of 13:19:00 [place] [facility] POC GLUCOSE SCREEN 2022-12-15 [facility] of 12:12:00 [place] [facility] BASIC METABOLIC PANEL, 2022-12-15 Mana Powersit y of CALCIUM TOTAL 09:44:00 [place] [facility] MAGNESIUM LEVEL 2022-12-15 Mana Powers [place] of 09:44:00 [place] [facility] PHOSPHORUS LEVEL 2022-12-15 Mana Powers [place] of 09:44:00 [place] [facility] COMPLETE BLOOD COUNT W/ 2022-12-15 Mana Powers [facility] ty of DIFFERENTIAL 09:44:00 [place] [facility] GLUCOSE LEVEL 2022-12-15 Mana Powers [place] of 09:44:00 [place] [facility] BLOOD UREA NITROGEN 2022-12-15 Mana Powers [place] o f 09:44:00 [place] [facility] ELECTROLYTE PANEL 2022-12-15 Mana Powers [place] of 09:44:00 [place] [facility] SERUM CREATININE 2022-12-15 Mana Powers [place] of 09:44:00 [place] [facility] .GLOMERULAR FILTRATION RATE 2022-12-15 Mana Powers [facility] ersity of 09:44:00 [place] MD Liane olivier [facility] CALCIUM LEVEL TOTAL 2022-12-15 Mana Powers [place] o f 09:44:00 [place] MD Liane olivier [facility] Results CBC 2022-12-15 Mana Powers [place] of 09:44:00 [place] MD Liane olivier [facility] MANUAL DIFFERENTIAL 2022-12-15 Mana Powers [place] o f 09:44:00 [place] MD Liane olivier [facility] POC GLUCOSE SCREEN 2022-12-15 Jessica [facility] of 08:28:00 [place] MD Liane olivier [facility] Center POC GLUCOSE SCREEN 2022-12-15 Jessica [facility] of 04:04:00 [place] MD Liane olivier [facility] POC GLUCOSE SCREEN 2022-12-14 Jessica [facility] of 23:26:00 [place] MD Liane olivier [facility] POC GLUCOSE SCREEN 2022-12-14 Jessica [facility] of 22:14:00 [place] MD Liane olivier [facility] FL MODIFIED BARIUM SWALLOW W 2022-12-14 ChristinaMontana [facility] of SPEECH 20:37:56 [place] MD Liane olivier [facility] POC GLUCOSE SCREEN 2022-12-14 Jessica [facility] of 18:08:00 [place] MD Liane olivier [facility] GENERAL LABORATORY ADD ON 2022-12-14 Travis Lopez [facility] versity of TEST 14:03:00 [place] Liane olivier [facility] POC GLUCOSE SCREEN 2022-12-14 [facility] of 13:25:00 [place] MD Liane olivier [facility] Center POC GLUCOSE SCREEN 2022-12-14 Sebastian-Derrick Quintero [facility] ty of 11:55:00 [place] Liane olivier [facility] BASIC METABOLIC PANEL, 2022-12-14 Mana Powersit y of CALCIUM TOTAL 10:46:00 [place] Liane olivier [facility] MAGNESIUM LEVEL 2022-12-14 Mana Powers [place] of 10:46:00 [place] Liane olivier [facility] PHOSPHORUS LEVEL 2022-12-14 Mana Powers [place] of 10:46:00 [place] MD Liane olivier [facility] COMPLETE BLOOD COUNT W/ 2022-12-14 Mana Powers [facility] ty of DIFFERENTIAL 10:46:00 [place] Liane olivier [facility] GLUCOSE LEVEL 2022-12-14 GioShaye [facility]Gu[facility] of 10:46:00 [place] [facility] soy [facility] BLOOD UREA NITROGEN 2022-12-14 [facility] o f 10:46:00 [place] MD Liane olivier [facility] ELECTROLYTE PANEL 2022-12-14 [facility] of 10:46:00 [place] [facility] SERUM CREATININE 2022-12-14 Gio, [facility] of 10:46:00 [place] [facility] .GLOMERULAR FILTRATION RATE 2022-12-14 [facility] ersity of 10:46:00 [place] Carreon soy [facility] CALCIUM LEVEL TOTAL 2022-12-14 [facility] o f 10:46:00 [place] MD Liane olivier [facility] Results CBC 2022-12-14 GioShaye copeGuadalupe [facility] of 10:46:00 [place] [facility] MANUAL DIFFERENTIAL 2022-12-14 [facility] o f 10:46:00 [place] [facility] ALBUMIN LEVEL 2022-12-14 [facility]At[facility] of 10:46:00 [place] Liane olivier [facility] ALKALINE PHOSPHATASE 2022-12-14 Travis Lopez [facility] ty of 10:46:00 [place] Liane olivier [facility] ALANINE AMINOTRANSFERASE 2022-12-14 Travis Lopez [facility] ersity of 10:46:00 [place] Liane olivier [facility] ASPARTATE AMINOTRANSFERASE 2022-12-14 Travis Lopez iversity of 10:46:00 [place] [facility] TOTAL PROTEIN 2022-12-14 Travis Lopez [place] of 10:46:00 [place] Liane olivier [facility] FRACTIONATED BILIRUBIN 2022-12-14 Travis Lopez [facility] sity of 10:46:00 [place] Liane olivier [facility] POC GLUCOSE SCREEN 2022-12-14 Travis Lopez [place] of 07:36:00 [place] MD Liane olivier [facility] Center POC GLUCOSE SCREEN 2022-12-14 [facility] of 03:56:00 [place] Liane olivier [facility] Center POC GLUCOSE SCREEN 2022-12-14 [facility] of 00:31:00 [place] [facility] Center POC GLUCOSE SCREEN 2022-12-13 [facility] of 19:24:00 [place] [facility] Center POC GLUCOSE SCREEN 2022-12-13 [facility] of 14:02:00 [place] [facility] soy [facility] Center POC GLUCOSE SCREEN 2022-12-13 [facility] of 11:58:00 [place] [facility] POC GLUCOSE SCREEN 2022-12-13 [facility] of 09:24:00 [place] [facility] BASIC METABOLIC PANEL, 2022-12-13 Mana Powers [facility] of CALCIUM TOTAL 09:12:00 [place] [facility] MAGNESIUM LEVEL 2022-12-13 Mana Powers [place] of 09:12:00 [place] [facility] PHOSPHORUS LEVEL 2022-12-13 Mana Powers [place] of 09:12:00 [place] [facility] COMPLETE BLOOD COUNT W/ 2022-12-13 Mana Powers [facility] ty of DIFFERENTIAL 09:12:00 [place] [facility] GLUCOSE LEVEL 2022-12-13 Mana Powers [place] of 09:12:00 [place] [facility] BLOOD UREA NITROGEN 2022-12-13 Mana Powers [place] f 09:12:00 [place] [facility] ELECTROLYTE PANEL 2022-12-13 Mana Powers [place] of 09:12:00 [place] [facility] SERUM CREATININE 2022-12-13 Mana Powers [place] of 09:12:00 [place] [facility] .GLOMERULAR FILTRATION RATE 2022-12-13 Mana Powers [facility] ersity of 09:12:00 [place] [facility] CALCIUM LEVEL TOTAL 2022-12-13 Mana Powers [place] o f 09:12:00 [place] [facility] Results CBC 2022-12-13 Mana Powers [place] of 09:12:00 [place] [facility] MANUAL DIFFERENTIAL 2022-12-13 Mana Powers o f 09:12:00 [place] [facility] POC GLUCOSE SCREEN 2022-12-13 [facility] Centerjules [facility] of 03:43:00 [place] [facility] POC GLUCOSE SCREEN 2022-12-13 [facility] Centerjules [facility] of 00:16:00 [place] [facility] POC GLUCOSE SCREEN 2022-12-12 [facility] of 18:52:00 [place] [facility] POC GLUCOSE SCREEN 2022-12-12 [facility]Mer[facility] Centerjules [facility] of 13:47:00 [place] [facility] POC GLUCOSE SCREEN 2022-12-12 [facility] of 11:52:00 [place] [facility] BASIC METABOLIC PANEL, 2022-12-12 Mana Powers [facility] of CALCIUM TOTAL 10:30:00 [place] [facility] MAGNESIUM LEVEL 2022-12-12 Mana Powers [place] of 10:30:00 [place] [facility] PHOSPHORUS LEVEL 2022-12-12 Mana Powers [place] of 10:30:00 [place] [facility] COMPLETE BLOOD COUNT W/ 2022-12-12 Mana Powers ty of DIFFERENTIAL 10:30:00 [place] [facility] GLUCOSE LEVEL 2022-12-12 Mana Powers [place] of 10:30:00 [place] [facility] BLOOD UREA NITROGEN 2022-12-12 Mana Powers [place] o f 10:30:00 [place] [facility] ELECTROLYTE PANEL 2022-12-12 Mana Powers [place] of 10:30:00 [place] [facility] SERUM CREATININE 2022-12-12 Mana Powers [place] of 10:30:00 [facility] .GLOMERULAR FILTRATION RATE 2022-12-12 Mana Powers [facility] ersity of 10:30:00 [facility] CALCIUM LEVEL TOTAL 2022-12-12 [facility] o f 10:30:00 [place] Liane olivier [facility] Results CBC 2022-12-12 [facility] of 10:30:00 [place] MD Liane olivier [facility] MANUAL DIFFERENTIAL 2022-12-12 [facility] o f 10:30:00 [place] Liane olivier [facility] Center POC GLUCOSE SCREEN 2022-12-12 [facility] of 08:06:00 [place] Liane olivier [facility] Center POC GLUCOSE SCREEN 2022-12-12 [facility] of 04:01:00 [place] Liane olivier [facility] LACTIC ACID, VENOUS 2022-12-12 [facility] y of 03:50:00 [place] Liane olivier [facility] VENOUS BLOOD GAS 2022-12-12 [facility] o f 00:21:00 [place] Liane olivier [facility] LIPASE LEVEL 2022-12-12 [facility] of 00:21:00 [place] Liane olivier [facility] POC GLUCOSE SCREEN 2022-12-12 [facility] of 00:10:00 [place] MD Rob [facility] GENERAL LABORATORY ADD ON 2022-12-11 [facility] versity of TEST 23:39:00 [place] Liane olivier [facility] KETONE BODIES QUALITATIVE 2022-12-11 Waleska Salinas Unive rsity of 23:19:00 [place] MD Liane olivier [facility] POC GLUCOSE SCREEN 2022-12-11 [facility] of 22:51:00 [place] Liane olivier [facility] LACTIC ACID, VENOUS 2022-12-11 [facility] y of 22:33:00 [place] MD Liane olivier [facility] ELECTROLYTE PANEL 2022-12-11 Waleska Salinas [place] of 22:33:00 [place] Liane olivier [facility] LIPASE LEVEL 2022-12-11 Waleska Salinas [place] of 22:33:00 [place] MD Liane olivier [facility] POC CRITICAL 2022-12-11 [facility]Mer[facility] CenterpatricW[facility] of 21:34:00 [place] [facility] POC GLUCOSE SCREEN 2022-12-11 [facility]Mer[facility] CenterpatricW[facility] of 21:34:00 [place] [facility] POC CRITICAL 2022-12-11 [facility] of 20:33:00 [place] [facility] POC GLUCOSE SCREEN 2022-12-11 [facility] of 20:33:00 [place] [facility] POC GLUCOSE SCREEN 2022-12-11 [facility] of 18:35:00 [place] [facility] POC GLUCOSE SCREEN 2022-12-11 [facility] of 14:14:00 [facility] LACTIC ACID, VENOUS 2022-12-11 [facility] o f 10:37:59 [facility] BASIC METABOLIC PANEL, 2022-12-11 Mana Powers [facility] y of CALCIUM TOTAL 10:30:00 [facility] MAGNESIUM LEVEL 2022-12-11 Mana Powers [place] of 10:30:00 [facility] PHOSPHORUS LEVEL 2022-12-11 Mana Powers [place] of 10:30:00 [facility] COMPLETE BLOOD COUNT W/ 2022-12-11 Mana Powers ty of DIFFERENTIAL 10:30:00 [facility] GLUCOSE LEVEL 2022-12-11 Irina Houston [place] of 10:30:00 [place] [facility] BLOOD UREA NITROGEN 2022-12-11 Irina Houston [place] of 10:30:00 [facility] ELECTROLYTE PANEL 2022-12-11 Irina Houston [place] of 10:30:00 [facility] SERUM CREATININE 2022-12-11 Irina Houston [place] of 10:30:00 [facility] .GLOMERULAR FILTRATION RATE 2022-12-11 Irina Houston Uni versity of 10:30:00 [facility] CALCIUM LEVEL TOTAL 2022-12-11 Irina Houston [facility] 10:30:00 [place] Liane olivier [facility] Results CBC 2022-12-11 Irina Houston [facility] 10:30:00 [place] Liane olivier [facility] MANUAL DIFFERENTIAL 2022-12-11 Irina Houston [facility] 10:30:00 [place] Liane olivier [facility] Center POC GLUCOSE SCREEN 2022-12-11 [facility] 07:20:00 Jaycee [place] Liane olivier [facility] Center POC GLUCOSE SCREEN 2022-12-11 [facility] 04:00:00 Jaycee [place] Liane olivier [facility] Center POC GLUCOSE SCREEN 2022-12-11 [facility] 00:29:00 ArlenJasmina [place] [facility] GLUCOSE SCREEN 2022-12-10 [facility] 23:20:00 ArlenJasmina [place] [facility] HEAD WO CONTRAST 2022-12-10 [facility] o f 21:21:00 ArlenJasmina [place] [facility] POC GLUCOSE SCREEN 2022-12-10 [facility] 19:45:00 ArlenJasmina [place] [facility] POC GLUCOSE SCREEN 2022-12-10 ReguloAbelino [facility] o f 17:35:00 [place] Liane olivier [facility] Center POC GLUCOSE SCREEN 2022-12-10 Mer Milian [facility] 13:30:00 [place] Liane olivier [facility] URINE CULTURE 2022-12-10 Tammy Mike [place] of 12:13:00 [place] Liane olivier [facility] URINALYSIS WITH MICROSCOPIC 2022-12-10 Tammy Mike [facility] ersity of IF INDICATED 12:13:00 [place] Liane olivier [facility] BASIC METABOLIC PANEL, 2022-12-10 Mana Powers Universit y of CALCIUM TOTAL 11:13:00 [place] Liane olivier [facility] MAGNESIUM LEVEL 2022-12-10 Mana Powers [facility] 11:13:00 [place] Liane olivier [facility] PHOSPHORUS LEVEL 2022-12-10 Mana Powers [place] of 11:13:00 [place] Liane olivier [facility] COMPLETE BLOOD COUNT W/ 2022-12-10 Mana Powers [facility] ty of DIFFERENTIAL 11:13:00 [place] [facility] HEMOGLOBIN A1C 2022-12-10 CelsoIrina olivier [place] of 11:13:00 [place] [facility] GLUCOSE LEVEL 2022-12-10 CelsoIrina olivier [place] of 11:13:00 [place] [facility] BLOOD UREA NITROGEN 2022-12-10 CelsoIrina olivier [place] of 11:13:00 [place] [facility] ELECTROLYTE PANEL 2022-12-10 [facility] [place] of 11:13:00 [place] [facility] SERUM CREATININE 2022-12-10 CelsoIrina olivier [place] of 11:13:00 [place] [facility] .GLOMERULAR FILTRATION RATE 2022-12-10 Irina Houston [facility] versity of 11:13:00 [place] [facility] CALCIUM LEVEL TOTAL 2022-12-10 CelsoIrina olivier [place] of 11:13:00 [place] [facility] Results CBC 2022-12-10 CelsoIrina olivier [place] of 11:13:00 [place] [facility] MANUAL DIFFERENTIAL 2022-12-10 CelsoIrina olivier [place] of 11:13:00 [place] [facility] POC GLUCOSE SCREEN 2022-12-10 Mer Milian [place] of 07:38:00 [place] [facility] POC GLUCOSE SCREEN 2022-12-10 Mer Milian [place] of 05:18:00 [place] [facility] POC VENOUS BLOOD GAS + 2022-12-10 Roberto Carlos Walsh y of LACTATE 03:36:00 [facility] COVID-19 (SARS-COV-2) 2022-12-10 Roberto Carlos [place] of ASYMPTOMATIC-LT 00:01:00 [facility] AMMONIA LEVEL 2022-12-10 Tammy Mike [place] of 00:01:00 [facility] COMPLETE BLOOD COUNT W/ 2022-12-10 Tammy Mike ty of DIFFERENTIAL 00:01:00 [place] [facility] COMPREHENSIVE METABOLIC PANEL 2022-12-10 Tammy Mike Un iversity of 00:01:00 [place] MD Liane olivier [facility] MAGNESIUM LEVEL 2022-12-10 [facility] [place] MD Liane olivier [facility] PHOSPHORUS LEVEL 2022-12-10 [facility] 00:01:00 [place] MD Liane olivier [facility] PROTHROMBIN TIME 2022-12-10 [facility] 00:01:00 [place] MD Liane olivier [facility] APTT 2022-12-10 [facility] 00:01:00 [place] [facility] soy [facility] LACTATE DEHYDROGENASE 2022-12-10 [facility] 00:01:00 [place] MD Liane olivier [facility] Results CBC 2022-12-10 [facility] 00:01:00 [place] MD Liane olivier [facility] MANUAL DIFFERENTIAL 2022-12-10 [facility] 00:01:00 [place] MD Carreon soy [facility] GLUCOSE LEVEL 2022-12-10 [facility] 00:01:00 [place] [facility] BLOOD UREA NITROGEN 2022-12-10 [facility] 00:01:00 [place] MD Liane olivier [facility] ELECTROLYTE PANEL 2022-12-10 [facility] 00:01:00 [place] [facility] SERUM CREATININE 2022-12-10 [facility] 00:01:00 [place] [facility] .GLOMERULAR FILTRATION RATE 2022-12-10 [facility] ersity of 00:01:00 [place] MD Rob [facility] CALCIUM LEVEL TOTAL 2022-12-10 [facility] 00:01:00 [place] [facility] ALBUMIN LEVEL 2022-12-10 [facility] 00:01:00 [place] MD Rob [facility] ALKALINE PHOSPHATASE 2022-12-10 [facility] 00:01:00 [place] [facility] ALANINE AMINOTRANSFERASE 2022-12-10 [facility] ity of 00:01:00 [place] [facility] ASPARTATE AMINOTRANSFERASE 2022-12-10 [facility] rsity of 00:01:00 [place] MD Liane olivier [facility] TOTAL PROTEIN 2022-12-10 [facility] 00:01:00 [place] MD Liane olivier [facility] FRACTIONATED BILIRUBIN 2022-12-10 [facility] y of 00:01:00 [place] MD Liane olivier [facility] HP MDA CHRISTINE MUTATION 2022-12-04 Lorena Hdez Uni versity of ANALYSIS PRECISION PANEL 16:56:00 [facility] HP SOLID TUMOR GENOMIC 2022-12-04 Lorena Hdez U niversity of ASSAY FUSIONS 2018 16:56:00 Bere Portillo rson [facility] HP MOLECULAR BLOOD COLLECTION 2022-12-04 Lorena Hdez [place] of 16:56:00 [place] MD Liane olivier [facility] MRI SKULL BASE WITH AND 2022-11-30 Lorena Hdez Uni versity of WITHOUT CONTRAST 17:12:54 Bere Carreon [facility] PETCT CONTRAST ENHANCED 2022-11-27 [facility] ty of INITIAL TREATMENT STRATEGY 21:57:06 Ashleigh Blackburn MD [facility] POC GLUCOSE SCREEN 2022-11-27 [facility] of 19:06:00 Ashleigh [place] [facility] POC GLUCOSE SCREEN 2022-11-27 [facility] of 18:29:00 Ashleigh [place] MD Rob [facility] MD NGS BLOOD CONTROL 2022-11-26 Lorena Hdez [facility] sity of 19:07:00 Bere olivier [facility] COMPLETE BLOOD COUNT W/ 2022-11-26 Lorena Hdez Uni versity of DIFFERENTIAL 19:07:00 Beer olivier [facility] COMPREHENSIVE METABOLIC PANEL 2022-11-26 Lorena Hdez [place] 19:07:00 Bere olivier [facility] FREE THYROXINE 2022-11-26 Lorena Hdez [place] of 19:07:00 [place] MD Liane olivier [facility] LACTATE DEHYDROGENASE 2022-11-26 Lorena Hdez [facility] rsity of 19:07:00 [place] MD [facility] MAGNESIUM LEVEL 2022-11-26 [facility] of 19:07:00 [place] MD Liane olivier [facility] PHOSPHORUS LEVEL 2022-11-26 [facility] of 19:07:00 [place] MD Liane olivire [facility] URIC ACID 2022-11-26 [facility] of 19:07:00 [place] MD Liane olivier [facility] VITAMIN D 25 HYDROXY LEVEL 2022-11-26 [facility] of 19:07:00 [place] MD Liane olivier [facility] THYROID STIMULATING HORMONE 2022-11-26 [facility] of 19:07:00 [place] [facility] APTT 2022-11-26 Hdez [facility] of 19:07:00 [place] MD Liane olivier [facility] PROTHROMBIN TIME 2022-11-26 [facility] of 19:07:00 [place] MD Liane olivier [facility] Results CBC 2022-11-26 Lemuel [facility] of 19:07:00 [place] MD Liane olivier [facility] MANUAL DIFFERENTIAL 2022-11-26 [facility] 19:07:00 [place] MD Liane olivier [facility] GLUCOSE LEVEL 2022-11-26 [facility] of 19:07:00 [place] [facility] BLOOD UREA NITROGEN 2022-11-26 Simona Hdezfer [facility] ity of 19:07:00 [place] MD Liane olivier [facility] ELECTROLYTE PANEL 2022-11-26 [facility] Center[facility] y of 19:07:00 [place] MD Liane olivier [facility] SERUM CREATININE 2022-11-26 [facility] of 19:07:00 [place] [facility] .GLOMERULAR FILTRATION RATE 2022-11-26 [facility] of 19:07:00 [place] MD Liane olivier [facility] CALCIUM LEVEL TOTAL 2022-11-26 Simona Hdezfer [facility]Pal[facility] ity of 19:07:00 [place] MD Carreon soy [facility] ALBUMIN LEVEL 2022-11-26 [facility] of 19:07:00 [place] [facility] ALKALINE PHOSPHATASE 2022-11-26 Lorena Hdez [facility] sity of 19:07:00 [place] MD Liane olivier [facility] ALANINE AMINOTRANSFERASE 2022-11-26 Lorena Hdez Un iversity of 19:07:00 [place] MD Liane olivier [facility] ASPARTATE AMINOTRANSFERASE 2022-11-26 Lorena Hdez [place] of 19:07:00 [place] MD Liane olivier [facility] TOTAL PROTEIN 2022-11-26 Lorena Hdez [place] of 19:07:00 [place] MD Liane olivier [facility] FRACTIONATED BILIRUBIN 2022-11-26 Lorena Hdez [facility] ersity of 19:07:00 [place] [facility] AP NTRK1 FUSION ANALYSIS 2022-11-26 Lorena Hdez [place] of MATERIAL REQUEST 18:43:02 Bere Carreon [facility] ANA CRISTINA GRIFFIN ALK MUTATION ANALAYSIS 2022-11-26 Lorena Hdez [facility] of MATERIAL REQUEST 18:43:02 [place] MD Carreon [facility] ANA CRISTINA GRIFFIN NTRK3 FUSION ANALYSIS 2022-11-26 Lorena Hdez [place] of MATERIAL REQUEST 18:43:02 [place] Lauri [facility] ANA CRISTINA GRIFFIN EGFR MUTATION MATERIAL 2022-11-26 Lorena Hdez [facility] of REQUEST 18:43:02 [place] MD Liane olivier [facility] ANA CRISTINA GRIFFIN ERBB2 MUTATION 2022-11-26 Lorena Hdez [facility] sity of ANALAYSIS MATERIAL REQUEST 18:43:02 [place] [facility] ANA CRISTINA GRIFFIN MTOR MATERIAL REQUEST 2022-11-26 Lorena Hdez [place] of 18:43:02 [place] MD Liane olivier [facility] ANA CRISTINA GRIFFIN PTEN MUTATION MATERIAL 2022-11-26 Lorena Hdez [facility] of REQUEST 18:43:02 [place] [facility] AP IHC PD-L1 MATERIAL REQUEST 2022-11-26 Lorena Hdez [facility] of 18:43:02 [place] [facility] AP IHC HER2/MELISSA MATERIAL 2022-11-26 Lorena Hdez Un iversity of REQUEST 18:43:02 [place] MD Rob [facility] HEPATITIS C VIRUS ANTIBODY 2022-11-17 Red Posada niversity of 18:11:00 Bere GRIFFIN [facility] COMPREHENSIVE METABOLIC PANEL 2022-11-17 Red Posada [facility] of 18:11:00 [place] [facility] COMPLETE BLOOD COUNT W/ 2022-11-17 Red Posada [facility] ersity of DIFFERENTIAL 18:11:00 [place] [facility] APTT 2022-11-17 Red Posada [facility] o f 18:11:00 [place] [facility] PROTHROMBIN TIME 2022-11-17 Red Posada [place] of 18:11:00 [place] [facility] CORTISOL 2022-11-17 Red Posada [facility] o f 18:11:00 [place] [facility] ADRENOCORTICOTROPIC HORMONE 2022-11-17 Red Posada [facility] of 18:11:00 [place] [facility] ESTRADIOL LEVEL 2022-11-17 Red Posada [facility] o f 18:11:00 [place] [facility] TESTOSTERONE LEVEL 2022-11-17 [facility] 18:11:00 [place] [facility] FOLLICLE STIMULATING HORMONE 2022-11-17 Red Posada [facility] of LEVEL 18:11:00 [place] [facility] LUTEINIZING HORMONE 2022-11-17 Red Pos[facility] of 18:11:00 [place] [facility] THYROID STIMULATING HORMONE 2022-11-17 Red Posada [place] of 18:11:00 [place] [facility] FREE THYROXINE 2022-11-17 Red Posada [facility] o f 18:11:00 [place] [facility] TOTAL T3 2022-11-17 Red Posada [facility] o f 18:11:00 [place] [facility] INSULIN LIKE GROWTH FACTOR 1 2022-11-17 [facility]ada [place] of 18:11:00 [place] [facility] PROLACTIN 2022-11-17 Red Posada [facility] o f 18:11:00 [place] [facility] GLUCOSE LEVEL 2022-11-17 [facility] [place] o f 18:11:00 [place] [facility] BLOOD UREA NITROGEN 2022-11-17 [facility] of 18:11:00 [place] [facility] ELECTROLYTE PANEL 2022-11-17 [facility] Posada [place] of 18:11:00 [place] [facility] SERUM CREATININE 2022-11-17 [facility] [place] of 18:11:00 [place] [facility] .GLOMERULAR FILTRATION RATE 2022-11-17 Red Posada [place] of 18:11:00 [place] [facility] CALCIUM LEVEL TOTAL 2022-11-17 Red Posada [facility] ty of 18:11:00 [place] [facility] ALBUMIN LEVEL 2022-11-17 Red Posada [facility] o f 18:11:00 [place] [facility] ALKALINE PHOSPHATASE 2022-11-17 [facility] ity of 18:11:00 [place] [facility] ALANINE AMINOTRANSFERASE 2022-11-17 Red Posada Uni versity of 18:11:00 [place] [facility] ASPARTATE AMINOTRANSFERASE 2022-11-17 Red Posada U niversity of 18:11:00 [place] [facility] TOTAL PROTEIN 2022-11-17 [facility] [place] o f 18:11:00 [place] [facility] FRACTIONATED BILIRUBIN 2022-11-17 Red Posada Unive rsity of 18:11:00 [place] [facility] Results CBC 2022-11-17 [facility] [place] o f 18:11:00 [place] [facility] MANUAL DIFFERENTIAL 2022-11-17 [facility] of 18:11:00 [place] [facility] PATHOLOGY OUTSIDE 2022-10-16 Alexa Alvarez [employer] of INTERPRETATION 00:00:00 [place] [facility] FLU VACC ([id number]), 6 MO-64 2022-09-21 SheriffNereida Un iversity of YRS, .5ML, IM, QUAD 15:41:00 [facility] (FLUCELVAX) Branch CT HEAD WO CONTRAST 2022-08-28 [facility] o f 14:23:13 [facility] POCT MOLECULAR FLU 2022-08-25 [facility] of 15:55:00 [facility] CBC W/AUTO DIFF WITH 2022-07-28 [facility] ege of PLATELETS 12:34:00 Medicine COMPREHENSIVE METABOLIC PANEL 2022-07-28 [facility] 12:34:00 Medicine FOLATE 2022-07-28 [facility] o f 12:34:00 Medicine HEMOGLOBIN A1C 2022-07-28 [facility] o f 12:34:00 Medicine LIPID PANEL 2022-07-28 [facility] o f 12:34:00 Medicine PROTIME \\T\\ PTT 2022-07-28 [facility] o f 12:34:00 Medicine THYROID PROFILE (T3U - T4 - 2022-07-28 [facility] T7 - TSH) 12:34:00 Medicine URINALYSIS, COMPLETE W/REFLEX 2022-07-28 [facility] CULTURE 12:34:00 Medicine VITAMIN A 2022-07-28 [facility] o f 12:34:00 Medicine VITAMIN B1 2022-07-28 [facility] o f 12:34:00 Medicine VITAMIN B12 2022-07-28 [facility] o f 12:34:00 Medicine VITAMIN D 25 HYDROXY 2022-07-28 [facility] ege of 12:34:00 Medicine IRON+TIBC+%SAT 2022-07-28 [facility] o f 12:34:00 Medicine FERRITIN 2022-07-28 [facility] o f 12:34:00 Medicine FL UPPER GI INCLUDING DOT COMPLIANCE SPECIALIST 2022-07-28 Angelica Mathis-Flakita Almeida [facility] 11:59:00 Medical Center IRON, TIBC AND FERRITIN PANEL 2022-07-08 [facility] 12:26:14 Medicine AMB REF TO BARIATRIC 2022-07-08 [facility] ege of [facility] 12:26:14 Medicine AMB REF TO PHYSICAL MED REHAB 2022-07-08 [employer] 12:26:14 Medicine AMB REF TO BARIATRIC SURGERY 2022-06-16 [facility] 08:27:29 Medicine POCT-GLUCOSE METER 2022-01-[address] [facility] 13:43:00 [facility] Center REPORT OF PROCEDURE - 2022-01-09 Dewayne Wise [facility] ENDOSCOPY URL 12:37:11 [facility] Center REPORT OF PROCEDURE - 2022-01-09 Mason, Dewayne Jaden [facility] URL 12:36:24 [facility] TISSUE EXAM 2022-01-09 Mason Dewayne Jadenbrinda [facility] 11:31:00 [facility] ESOPHAGEAL BALLOON 2022-01-[address] [facility] PROVOCATION STUDY 10:53:00 [facility] COLONOSCOPY, WITH POLYPECTOMY 2022-01-09 Mason Dewayne Crystal jaycee [facility] 10:53:00 [facility] ENDOSCOPY, UPPER GI TRACT, 2022-01-[address] [facility] WITH BIOPSY 10:53:00 [facility] POCT-GLUCOSE METER 2022-01-09 Mason Dewayne Stanley [facility] 09:59:00 [facility] SARS-COV2/RT-PCR ([facility] & REF 2022-01-09 Dewayne Wise Johannycarlos alberto henri [facility] LABS) 07:55:00 [facility] MANOMETRY, ANORECTAL 2021-12-[address] [facility] 09:24:00 [facility] Sleeve resection of stomach 2017-09-01 Dillon christensen [place] 00:00:00 Laparoscopic adjustable 2013-11-01 [facility] gastric banding<sup>1</sup> 06:00:00 Removal of gastric band 2013-11-01 [facility] 00:00:00 Abdominal hysterectomy 2011-11-01 [facility] 00:00:00 Laparoscopic adjustable 2010-11-01 [facility] gastric banding 00:00:00 Appendectomy 2009-11-01 [facility] 00:00:00 Cholecystectomy 2009-11-01 [facility] 00:00:00 Knee joint [facility] Shoulder joint operations 2006-11-01 Maynor Tsang 06:00:00 section 1984-11-01 Yossi olivier 00:00:00 Knee Surgery [facility] Procedure on Shoulder [facility] Gallbladder Surgery [facility] Fami ly Practice Appendectomy [facility] Plan of Care Planned Activity Planned Date Details Comments Source Future Scheduled 2032-01-[address] [facility] 00:[facility]00 [facility] colon (procedure) [code = 397556466] Future Scheduled 2032-01-[address] [facility] 00:00:00 [facility] colon (procedure) [code = 631476828] Future Scheduled 2032-01-[address] [facility] 00:00:00 [facility] colon (procedure) [code = 906476031] Future Scheduled 2032-01-[address] [facility] Test 00:00:00 [facility] colon (procedure) [code = 112019177] Future Scheduled 2032-01-[address] [facility] Test 00:00:00 [facility] colon (procedure) [code = 456055860] Future Scheduled 2032-01-[address] [facility] Test 00:00:00 malignant ne[facility] colon (procedure) [code = 056312373] Future Scheduled 2032-01-[address] [facility] 00:00:00 [facility] colon (procedure) [code = 678572429] Future Scheduled 2032-01-[address] [facility] Test 00:00:00 malignant [facility] colon (procedure) [code = 589877843] Future Scheduled 2032-01-[address] [facility] Test 00:00:00 malignant ne[facility] colon (procedure) [code = 946284998] Future Scheduled 2032-01-[address] [facility] Test 00:00:00 malignant ne[facility] colon (procedure) [code = 884855804] Future Scheduled 2032-01-[address] [facility] 00:00:00 [facility] colon (procedure) [code = 084098552] Future Scheduled 2032-01-[address] [facility] Test 00:00:00 malignant ne[facility] colon (procedure) [code = 397717461] Future Scheduled 2032-01-[address] [facility] 00:00:00 [facility] colon (procedure) [code = 029529284] Future Scheduled 2032-01-[address] [facility] 00:00:00 [facility] colon (procedure) [code = 205135162] Future Scheduled 2032-01-[address] [facility] 00:00:00 [facility] colon (procedure) [code = 041473232] Future Scheduled 2032-01-[address] [facility] 00:00:00 malignant ne[facility] colon (procedure) [code = 098673249] Future Scheduled 2032-01-[address] [facility] Test 00:00:00 malignant [facility] colon (procedure) [code = 175785742] Future Scheduled 2032-01-[address] [facility] 00:00:00 malignant neoplasm [facility] Center colon (procedure) [code = 179253947] Future Scheduled 2023-07-[address] [facility] Test 00:00:00 (Season Ended) [code = Medic al Center INFLUENZA VACCINE (Season Ended)] Future Scheduled 2023-07-[address] [facility] Test 00:00:00 (Season Ended) [code = Medic al Center INFLUENZA VACCINE (Season Ended)] Future Scheduled 2023-03-19 COVID-19 Vaccination Uni versity of Test 08:32:18 (4 - Booster for Bere GRIFFIN Moderna series) [code Lauri on Cancer = COVID-19 Vaccination Cente r (4 - Booster for Moderna series)] Future Scheduled 2023-03-12 COVID-19 Vaccination Uni versity [...] Screening (12+)] Future Scheduled 2022-12-02 Screening for [facility] Col lege Test 14:19:17 malignant neoplasm of of Med shakirne breast (procedure) [code = 239092648] Future Scheduled 2022-12-02 Pneumococcal Combined [facility] Test 14:19:17 (1 - PCV) [code = of Medicin e Pneumococcal Combined (1 - PCV)] Future Scheduled 2022-12-02 TETANUS SHOT (ADULT) [facility] Test 14:19:17 [code = TETANUS SHOT of Medi cine (ADULT)] Future Scheduled 2022-12-02 Diabetic foot [facility] Col lege Test 14:19:17 examination of Medicine (regime/therapy) [code = 225126907] Future Scheduled 2022-12-02 Annual Diabetic [facility] C ollege Test 14:19:17 Retinopathy Screening of Med icine [code = Annual Diabetic Retinopathy Screening] Future Scheduled 2022-12-02 Human immunodeficiency B [facility] Test 14:19:17 virus screening of Medicine (procedure) [code = 995241524] Future Scheduled 2022-12-02 Screening for [facility] Col lege Test 14:19:17 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) [code = 427830601] Future Scheduled 2022-12-02 ZOSTER VACCINE (1 of [employer] Test 14:19:17 2) [code = [...] icine Plan] Future Scheduled 2022-12-02 Screening for [facility] Col lege Test 14:19:17 malignant neoplasm of of Med icine colon (procedure) [code = 661497646] Future Scheduled 2022-11-[address] [...] SCREENING (12+)] Future Scheduled 2022-08-31 Screening for [facility] Col lege Test 13:08:39 malignant neoplasm of of Med icine breast (procedure) [code = 966177937] Future Scheduled 2022-08-31 Pneumococcal Combined [facility] [place] Test 13:08:39 (1 - PCV) [code = of Medicin e Pneumococcal Combined (1 - PCV)] Future Scheduled 2022-08-31 TETANUS SHOT (ADULT) [employer] Test 13:08:39 [code = TETANUS SHOT of Medi cine (ADULT)] Future Scheduled 2022-08-31 Diabetic foot [facility] Col lege Test 13:08:39 examination of Medicine (regime/therapy) [code = 467702252] Future Scheduled 2022-08-31 ANNUAL DIABETIC [facility] C [facility]lege Test 13:08:39 RETINOPATHY SCREENING of Med icine [code = ANNUAL DIABETIC RETINOPATHY SCREENING] Future Scheduled 2022-08-31 Hepatitis C screening Ba [facility] Test 13:08:39 (procedure) [code = of Medic ine 391877588] Future Scheduled 2022-08-31 [facility] virus screening of Medicine (procedure) [code = 173867562] Future Scheduled 2022-08-31 Screening for [facility] Test 13:08:39 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) [code = 374442799] Future Scheduled 2022-08-31 MEDICARE AWV (Initial) B [facility] Test 13:08:39 [code = MEDICARE AWV of Medi cine (Initial)] Future Scheduled 2022-08-31 ZOSTER VACCINE (1 of [facility] Test 13:08:39 2) [code = ZOSTER of Medicin e VACCINE (1 of 2)] Future Scheduled 2022-08-31 COVID-19 Vaccine (4 - Ba [facility] Test 13:08:39 Booster for Moderna of Medic ine series) [code = COVID-19 Vaccine (4 - Booster for Moderna series)] Future Scheduled 2022-08-31 FLU VACCINE > 6 MONTHS [facility] Test 13:08:39 [code = FLU VACCINE > of Med icine 6 MONTHS] Future Scheduled 2022-08-31 [facility] 13:08:39 [code = BMI FOLLOW UP of Med icine PLAN] Future Scheduled 2022-08-31 Screening for [facility] Test 13:08:39 malignant neoplasm of of Med icine colon (procedure) [code = 073728456] Future Scheduled 2022-08-11 Screening for [facility] Test 15:35:44 malignant neoplasm of of Med icine breast (procedure) [code = 106745424] Future Scheduled 2022-08-11 TETANUS SHOT (ADULT) [employer] Test 15:35:44 [code = TETANUS SHOT of Medi cine (ADULT)] Future Scheduled 2022-08-11 Diabetic foot [facility] Test 15:35:44 examination of Medicine (regime/therapy) [code = 423449727] Future Scheduled 2022-08-11 ANNUAL DIABETIC [facility] Test 15:35:44 RETINOPATHY SCREENING of Med icine [code = ANNUAL DIABETIC RETINOPATHY SCREENING] Future Scheduled 2022-08-11 Hepatitis C screening Ba or [employer] Test 15:35:44 (procedure) [code = of Medic ine 630688827] Future Scheduled 2022-08-11 [facility] Test 15:35:44 virus screening of Medicine (procedure) [code = 297613146] Future Scheduled 2022-08-11 Screening for [facility] Test 15:35:44 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) [code = 189574296] Future Scheduled 2022-08-11 [facility] (Initial[facility] Test 15:35:44 [code = MEDICARE AWV of Medi cine (Initial)] Future Scheduled 2022-08-11 ZOSTER VACCINE (1 of [employer] Test 15:35:44 2) [code = ZOSTER of [...] Future Scheduled 2022-08-11 BMI FOLLOW UP PLAN [employer] Test 15:35:44 [code = BMI FOLLOW UP of Med icine PLAN] Future Scheduled 2022-08-11 Screening for [facility] Test 15:35:44 malignant neoplasm of of Med icine colon (procedure) [code = 096388869] Future Scheduled 2022-07-02 INFLUENZA VACCINE (#1) C [...] VACCINE (#1)] Future Scheduled 2022-06-16 Screening for [facility] Test 07:59:04 malignant neoplasm of of Med icine breast (procedure) [code = 544293659] Future Scheduled 2022-06-16 TETANUS SHOT (ADULT) [employer] Test 07:59:04 [code = TETANUS SHOT of Medi cine (ADULT)] Future Scheduled 2022-06-16 BMI FOLLOW UP PLAN [facility] Test 07:59:04 [code = BMI FOLLOW UP of Med icine PLAN] Future Scheduled 2022-06-16 Hepatitis C screening Ba or [place] Test 07:59:04 (procedure) [code = of Medic ine 368740594] Future Scheduled 2022-06-16 Human immunodeficiency B [facility] Test 07:59:04 virus screening of Medicine (procedure) [code = 764494105] Future Scheduled 2022-06-16 Screening for [facility] Test 07:59:04 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) [code = 233280455] Future Scheduled 2022-06-16 MEDICARE AWV (Initial) [facility] [employer] Test 07:59:04 [code = MEDICARE AWV of Medi cine (Initial)] Future Scheduled 2022-06-16 ZOSTER VACCINE (1 of [employer] Test 07:59:04 2) [code = [...] of Med icine colon (procedure) [code = 623283623] Future Scheduled 2021-11-18 Screening for [facility] Test 09:34:08 malignant neoplasm of of Med icine colon (procedure) [code = 414789712] Future Scheduled 2021-11-18 Screening for [facility] Test 09:34:08 malignant neoplasm of of Med icine breast (procedure) [code = 334429130] Future Scheduled 2021-11-18 TETANUS SHOT (ADULT) [employer] Test 09:34:08 [code = TETANUS SHOT of Medi cine (ADULT)] Future Scheduled 2021-11-18 BMI FOLLOW UP PLAN [employer] Test 09:34:08 [code = BMI FOLLOW UP of Med icine PLAN] Future Scheduled 2021-11-18 Hepatitis C screening [facility] [employer] Test 09:34:08 (procedure) [code = of Medic ine 692513867] Future Scheduled 2021-11-18 Human immunodeficiency [facility] [employer] Test 09:34:08 virus screening of Medicine (procedure) [code = 021528208] Future Scheduled 2021-11-18 Screening for [facility] Test 09:34:08 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) [code = 674686837] Future Scheduled 2021-11-18 MEDICARE AWV (Initial) [facility] [employer] Test 09:34:08 [code = MEDICARE AWV of Medi cine (Initial)] Future Scheduled 2021-11-18 ZOSTER VACCINE (1 of [employer] Test 09:34:08 2) [code = ZOSTER of Medicin e VACCINE (1 of 2)] Future Scheduled 2021-11-18 FLU VACCINE > 6 MONTHS B [facility] Test 09:34:08 [code = FLU VACCINE [...] Scheduled 2021-11-06 ANOREC MANOM AND 1 Occurrences [facility] Test 14:07:12 EMG-GI DEPT [code = starting of Medic ine NOCPT] 11/06/2021 until 05/06/2022 Future Scheduled 2021-11-06 EGD W/MAC - GI DEPT 1 Occurrences [employer] Test 14:07:11 [code = 94717] starting of Medicine 11/06/2021 until 05/06/2022 Future Scheduled 2021-11-06 COLONOSCOPY W MAC GI 1 Occurrences [facility] Test 14:07:11 DEPT [code = 29558] starting of Medic ine 11/06/2021 until 05/06/2022 [...] - Booster for Moderna series)] Future Scheduled 2021-09-05 COVID-19 VACCINE (4 - [...] [facility] Test 00:00:00 (procedure) [code = [facility] 13257837] Future Scheduled [address] [facility] Test 00:00:00 (procedure) [code = [facility] 60213326] Future Scheduled [address] [facility] Test 00:00:00 (procedure) [code = [facility] 24109623] Future Scheduled [address] [facility] Test 00:00:00 (procedure) [code = [facility] 44446061] Future Scheduled [address] [facility] Test 00:00:00 (procedure) [code = Medical Center 28016757] Future Scheduled [address] [facility] Test 00:00:00 (procedure) [code = [facility] 20823012] Future Scheduled [address] [facility] Test 00:00:00 (procedure) [code = Medical Center 56241240] Future Scheduled [address] [facility] Test 00:00:00 (procedure) [code = Medical Center 25060952] Future Scheduled [address] [facility] Test 00:00:00 (procedure) [code = Medical Center 60965387] Future Scheduled 2011-11-[address] [...] Medica l Center cervix (procedure) [code = 976411885] Future Scheduled [address] [facility] Test 00:[facility] malignant neoplasm of Medica l Center cervix (procedure) [code = 303412950] Future Scheduled [address] [facility] Test 00:00:00 malignant neoplasm of Medica l Center cervix (procedure) [code = 020718859] Future Scheduled [address] [facility] Test 00:00:00 malignant neoplasm of Medica l Center cervix (procedure) [code = 396595059] Future Scheduled [address] [facility] Test 00:00:00 malignant neoplasm of Medica l Center cervix (procedure) [code = 081995206] Future Scheduled [address] [facility] Test 00:00:00 malignant neoplasm of Medica l Center cervix (procedure) [code = 144388489] Future Scheduled [address] [facility] Test 00:00:00 malignant neoplasm of Medica l Center cervix (procedure) [code = 943708164] Future Scheduled [address] [facility] Test 00:00:00 malignant neoplasm of Medica l Center cervix (procedure) [code = 834490137] Future Scheduled [address] [facility] Test 00:00:00 malignant neoplasm of Medica l Center cervix (procedure) [code = 300375981] Future Scheduled 1986 DTAP/TDAP/TD VACCINES [facility] [...] Medica l Center breast (procedure) [code = 041726638] Future Scheduled [address] [facility] Test 00:00:00 (combo) [code = CT Medical C enter Colonography (combo)] Future Scheduled [address] [facility] Test 00:00:00 malignant neoplasm of Medica l Center colon (procedure) [code = 084483098] Future Scheduled [address] [facility] Test 00:00:00 malignant neoplasm of Medica l Center breast (procedure) [code = 252271832] Future Scheduled [address] [facility] Test 00:00:00 (combo) [code = CT Medical C enter Colonography (combo)] Future Scheduled [address] [facility] Test 00:00:00 malignant neoplasm of Medica l Center colon (procedure) [code = 554350824] Future Scheduled [address] [facility] Test 00:00:00 malignant neoplasm of Medica l Center colon (procedure) [code = 204043785] Future Scheduled [address] [facility] Test 00:00:00 malignant neoplasm of Medica l Center colon (procedure) [code = 995727833] Future Scheduled 1967 [facility] Medical Cent[facility] r Future Scheduled 1967 [facility] Medical Cent[facility] r Future Scheduled [address] [facility] Test 00:00:00 malignant neoplasm of Medica l Center breast (procedure) [code = 649343536] Future Scheduled [address] [facility] Test 00:00:00 (combo) [code = CT Medical C enter Colonography (combo)] Future Scheduled [address] [facility] Test 00:00:00 malignant neoplasm of Medica l Center colon (procedure) [code = 057233677] Future Scheduled [address] [facility] Test 00:00:00 malignant neoplasm of Medica l Center colon (procedure) [code = 521366102] Future Scheduled 1967 [facility]oscopy [facility]oscopy] Medical Paoloe r Future Scheduled [address] [facility] Test 00:00:00 malignant neoplasm of Medica l Center breast (procedure) [code = 319398726] Future Scheduled [address] [facility] Test 00:00:00 (combo) [code = CT Medical C enter Colonography (combo)] Future Scheduled [address] [facility] Test 00:00:00 malignant neoplasm of Medica l Center colon (procedure) [code = 086058207] Future Scheduled [address] [facility] Test 00:00:00 malignant neoplasm of Medica l Center colon (procedure) [code = 899346362] Future Scheduled 1967 [facility]] Medical Paoloe r Future Scheduled [address] [facility] Test 00:00:00 malignant neoplasm of Medica l Center breast (procedure) [code = 972625442] Future Scheduled [address] [facility] Test 00:00:00 (combo) [code = CT Medical C enter Colonography (combo)] Future Scheduled [address] [facility] Test 00:00:00 malignant neoplasm of Medica l Center colon (procedure) [code = 582150747] Future Scheduled [address] [facility] Test 00:00:00 malignant neoplasm of Medica l Center colon (procedure) [code = 124349315] Future Scheduled 1967 [facility]oscopy [facility] 00:[facility]oscopy] Medical Paoloe r Future Scheduled [address] [facility] Test 00:00:00 malignant neoplasm of Medica l Center breast (procedure) [code = 883688439] Future Scheduled [address] [facility] Test 00:00:00 (combo) [code = CT Medical C enter Colonography (combo)] Future Scheduled [address] [facility] Test 00:00:00 malignant neoplasm of Medica l Center colon (procedure) [code = 502407907] Future Scheduled [address] [facility] Test 00:00:00 malignant neoplasm of Medica l Center colon (procedure) [code = 775884930] Future Scheduled 1967 [facility] Medical Cente r Future Scheduled [address] [facility] Test 00:00:00 malignant neoplasm of Medica l Center breast (procedure) [code = 625390504] Future Scheduled [address] [facility] Test 00:00:00 (combo) [code = CT Medical C enter Colonography (combo)] Future Scheduled [address] [facility] Test 00[facility]00:00 malignant neoplasm of Medica l Center colon (procedure) [code = 507194699] Future Scheduled [address] [facility] Test 00:00:00 malignant neoplasm of Medica l Center colon (procedure) [code = 634128186] Future Scheduled 1967 [facility]] Medical Cente r Future Scheduled [address] [facility] Test 00:00:00 malignant neoplasm of Medica l Center breast (procedure) [code = 424440821] Future Scheduled [address] [facility] Test 00:00:00 (combo) [code = CT Medical C enter Colonography (combo)] Future Scheduled [address] [facility] Test 00:00:00 malignant neoplasm of Medica l Center colon (procedure) [code = 553390625] Future Scheduled [address] [facility] Test 00:00:00 malignant neoplasm of Medica l Center colon (procedure) [code = 446839692] Future Scheduled 1967 [facility]] Medical Cente r Future Scheduled [address] [facility] Test 00:00:00 [facility] breast (procedure) [code = 182809940] Future Scheduled [address] [facility] Test 00:00:00 (combo) [code = CT Medical C enter Colonography (combo)] Future Scheduled [address] [facility] Test 00:00:00 malignant neoplasm of [facility] colon (procedure) [code = 521019358] Future Scheduled [address] [facility] Test 00:00:00 malignant neoplasm of [facility] colon (procedure) [code = 479652054] Future Scheduled 1967 [facility] 00:[facility] S[facility]oscopy] Medical James r Encounters Start End Encounter Admission Attending Care Care Encounter Source Date/Time Date/Time Type Type Clinicians Facility Department ID 2022-11-17 Outpatient SYSTEM, [facility] [id number] 12:15:21 PROVIDER Lauri olivier 2021-08-29 Emergency [facility] [id number] [facility] 21:08:39 ity of [facility] 2020-08-23 [id number] [facility] 15:14:00 14 [facility] 2019-12-07 Inpatient KYLAH Rodriguez [facility] ENDO [id number] [facility] 10:00:00 Zacarias 32 [facility] 2023-03-18 2023-03-18 Telephone Kenny Power, 1.2.840.1 [id number] [facility] 00:00:00 00:00:00 Vaibhav 20396.1.1 ity of 3.412.2.7 [place] .3.428036 .8 Liane olivier [facility] 2023-03-16 2023-03-16 Orders Hdez, 1.2.840.1 [id number] Univers 00:00:00 00:00:00 Only Lorena 18758.1.1 ity of Kayla 3.412.2.7 [place] .3.535397 MD Soares8 [facility] 2023-03-12 2023-03-12 Nutrition Kenya Agarwal. 1.2.840.1 [id number] Univers 11:00:00 11:30:00 Lian Jaramillo 52940.1.1 ity of 3.412.2.7 [place] .3.697380 .8 [facility] 2023-03-12 2023-03-12 Nutrition KENYA AGARWAL 1.2.840.1 [id number] 10:43:22 10:43:22 02788.1.1 Bandar rso 3.412.2.7 n .3.691661 .8 2023-03-11 2023-03-11 Infusion KYLAH Lemuel, 1.2.840.1 [id number] Univers 13:30:00 15:40:13 Lorena 15276.1.1 ity of Kayla 3.412.2.7 [place] .3.203066 MD Soares8 [facility] 2023-03-11 2023-03-11 Infusion Lemuel, 1.2.840.1 [id number] [facility] 13:30:00 15:40:13 Lorena 63955.1.1 ity of [place] 3.412.2.7 [place] .3.000117 MD Soares8 [facility] 2023-03-11 2023-03-11 Follow-Up KYLAH Hdez, 1.2.840.1 [id number] Univers 11:20:00 12:42:16 Lorean 59752.1.1 ity of [place] 3.412.2.7 [place] .3.137232 MD Soares8 [facility] 2023-03-11 2023-03-11 Follow-Up Hdez, 1.2.840.1 [id number] Univers 11:20:00 12:42:16 Lorena 73122.1.1 ity of [place] 3.412.2.7 [place] .3.874722 MD Blair [facility] 2023-03-11 2023-03-11 Outpatient KYLAH HDEZ, [facility] [id number] 11:07:27 11:16:17 LORENA Suraj [facility] 2023-03-11 2023-03-11 Travel 1.2.840.1 1.2.395.012 [id number] Univers 00:00:00 00:00:00 40450.1.1 350.1.13.41 ity of 3.412.2.7 2[place].3.698 [place] .3.992422 084.8 .8 [facility] 2023-03-11 2023-03-11 Travel 1.2.840.1 1.2.030.648 [id number] Univers 00:00:00 00:00:00 46870.1.1 350.1.13.41 ity of 3.412.2.7 [place].3.698 [place] .3.656522 084.8 .8 [facility] 2023-03-09 2023-03-09 Telephone Hdez, 1.2.840.1 [id number] Univers 00:00:00 00:00:00 Lorena 87613.1.1 ity of [place] 3.412.2.7 [place] .3.898745 MD Soares8 [facility] 2023-03-09 2023-03-09 Telephone Hdez, 1.2.840.1 [id number] Univers 00:00:00 00:00:00 Lorena 27858.1.1 ity of [place] 3.412.2.7 [place] .3.621201 MD Soares8 [facility] 2023-03-04 2023-03-04 Kenya Handley 1.2.840.1 [id number] Univers 10:00:00 10:57:47 Lian Jaramillo 03165.1.1 ity of 3.412.2.7 [place] .3.024673 MD Soares8 [facility] 2023-03-042023-03-04 Nutrition Kenya Agarwal Y. 1.2.840.1 [id number] Univers 10:00:00 10:57:47 Lian Jaramillo 08242.1.1 ity of 3.412.2.7 [place] .3.726036 MD Soares8 [facility] 2023-03-04 2023-03-04 Anabell Hdez 1.2.840.1 [id number] Univers 00:00:00 00:00:00 Only Lorena 41623.1.1 ity of [place] 3.412.2.7 [place] .3Rodger703556 MD Soares8 [facility] 2023-03-04 2023-03-04 Telephone Doyle 1.2.840.1 [id number] Univers 00:00:00 00:00:00 Tita Mayorga 69433.1.1 ity of 3.412.2.7 [place] .3Rodger902690 MD Soares8 [facility] 2023-03-04 2023-03-04 Anabell Gordon 1.2.840.1 [id number] Univers 00:00:00 00:00:00 Only Miguel Fernandez 59090.1.1 it y of 3.412.2.7 [place] .3Rodger425255 MD Blair [facility] 2023-03-04 2023-03-04 OLGA Yost 1.2.840.114 [id number] Univers 00:00:00 00:00:00 Deyanira WILSON 350.1.13.10 it y of [facility] 4.2.7.2.686 Frankie as [id number] [place] [address] [place] 2023-03-04 2023-03-04 Anabell Hdez 1.2.840.1 [id number] Univers 00:00:00 00:00:00 Only Lorena 95688.1.1 ity of [place] 3.412.2.7 [place] .3Rodger439424 MD Soares8 [facility] 2023-03-04 2023-03-04 Telephone Doyle 1.2.840.1 [id number] Univers 00:00:00 00:00:00 Tita Mayorga 27015.1.1 ity of 3.412.2.7 [place] .3.255064 MD Soares8 [facility] 2023-03-04 2023-03-04 Anabell Gordon, 1.2.840.1 [id number] Univers 00:00:00 00:00:00 Only Miguel Fernandez 81837.1.1 it y of 3.412.2.7 [place] .3.408289 MD Soares8 [facility] 2023-03-03 2023-03-03 Outpatient KYLAH HDEZ, [facility] [id number] [place] 12:48:25 13:03:52 LORENA Ruelas [facility] 2023-03-03 2023-03-03 Follow-Up KYLAH Power, 1.2.840.1 [id number] Univers 11:40:00 12:57:39 Celyne 92852.1.1 ity of 3.412.2.7 [place] .3.797667 MD Soares8 [facility] 2023-03-03 2023-03-03 Follow-Up Kenny Power, 1.2.840.1 [id number] Univers 11:40:00 12:57:39 Celyne 75291.1.1 ity of 3.412.2.7 [place] .3.758623 MD Soares8 [facility] 2023-03-03 2023-03-03 Rohith Santillan, 1.2.840.1 [id number] Univers 00:00:00 00:00:00 Anumol 94581.1.1 ity of 3.412.2.7 [place] .3.122454 MD Soares8 [facility] 2023-03-03 2023-03-03 Travel 1.2.840.1 1.2.765.965 [id number] Univers 00:00:00 00:00:00 37850.1.1 350.1.13.41 ity of 3.412.2.7 2.2.7.3.698 [place] .3.447812 084.8 MD Soares8 [facility] 2023-03-03 2023-03-03 Rohith Santillan, 1.2.840.1 [id number] Univers 00:00:00 00:00:00 Anumol 76053.1.1 ity of 3.412.2.7 [place] .3.400575 MD Soares8 [facility] 2023-03-03 2023-03-03 Travel 1.2.840.1 1.2.860.009 [id number] Univers 00:00:00 00:00:00 78086.1.1 350.1.13.41 ity of 3.412.2.7 [place]7.3.698 [place] .3.489856 084.8 MD Blair [facility] 2023-03-02 2023-03-02 Rohith Santillan, 1.2.840.1 [id number] Univers 00:00:00 00:00:00 Anumol 54424.1.1 ity of 3.412.2.7 [place] .3.722413 MD Soares8 [facility] 2023-03-02 2023-03-02 Rohith Santillan, 1.2.840.1 [id number] Univers 00:00:00 00:00:00 Anumol 89471.1.1 ity of 3.412.2.7 [place] .3.901964 MD Blair [facility] 2023-02-26 2023-02-26 Telemedici KYLAH Gordon, 1.2.840.1 [id number] Univers 08:30:00 08:56:14 april Fernandez 53760.1.1 it y of 3.412.2.7 [place] .3.910380 MD Blair [facility] 2023-02-26 2023-02-26 Telemedici Evan, 1.2.840.1 [id number] Univers 08:30:00 08:56:14 ne Andrew. 87077.1.1 it y of 3.412.2.7 [place] .3.193118 MD Soares8 [facility] 2023-02-25 2023-02-25 Nutrition Kenya Carrion 1.2.840.1 [id number] Univers 10:00:00 11:13:11 Lian Jaramillo 08244.1.1 ity of 3.412.2.7 [place] .3Rodger120081 MD Soares8 [facility] 2023-02-25 2023-02-25 Nutrition Kenya Agarwal 1.2.840.1 [id number] Univers 10:00:00 11:13:11 Lian Jaramillo 15601.1.1 ity of 3.412.2.7 [place] .3.093237 MD Soares8 [facility] 2023-02-23 2023-02-23 [facility] 1.2.840.114 [id number] Univers 00:00:00 00:00:00 [facility] 350.1.13.10 it y of [place] 4.2.7.2.686 Frankie as JAVIER?BLEA [phone] [address] 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 BUILDING 2023-02-19 2023-02-19 Telephone Tonny, 1.2.840.1 [id number] Univers 00:00:00 00:00:00 Anthony Benjamin 17144.1.1 ity of 3.412.2.7 [place] .3.124189 MD Soares8 [facility] 2023-02-19 2023-02-19 Telephone Tonny, 1.2.840.1 [id number] Univers 00:00:00 00:00:00 Anthony Benjamin 00578.1.1 ity of 3.412.2.7 [place] .3Rodger380471 MD Soares8 [facility] 2023-02-18 2023-02-18 Nutrition Kenya Carrion 1.2.840.1 [id number] Univers 10:00:00 10:47:33 Lian Jaramillo 10257.1.1 ity of 3.412.2.7 [place] .3.823674 .8 [facility] 2023-02-18 2023-02-18 Kenya Gastelum 1.2.840.1 [id number] [facility] 10:00:00 10:47:33 Lian Jaramillo 24964.1.1 ity of 3.412.2.7 [place] .3.844678 .8 [facility] 2023-02-05 2023-02-16 [facility] 1.2.840.1 [id number] [facility] 16:49:00 16:40:00 Encounter Felisa Rashid 19175.1.1 ity of Romana Guy 3.412.2.7 [place] Esthela, Amanda .3.255327 Napoleon Romero, Son V. .8 A Derrick Sandoval, [facility] 2023-02-05 2023-02-16 [facility] 1.2.840.1 [id number] 1 [id number] [facility] 16:49:00 16:40:00 Encounter Felisa Rashid 14635.1.1 ity of Romana Guy 3.412.2.7 [place] Amanda Proctor .3.083560 Napoleon Romero, Son V. .8 A Derrick Sandoval, Kofi [facility] 2023-02-14 2023-02-14 Inpatient KYLAH WANG MDA MDA [id number] 11:31:10 12:01:35 KOFI olivier 2023-02-13 2023-02-13 Inpatient KYLAH WANG MDA MDA [id number] 15:30:24 16:08:06 KOFI Lauri o soy 2023-02-12 2023-02-12 [facility] Kenya Agarwal 1.2.840.1 [id number] 1 [id number] [facility] 07:00:00 23:59:00 Encounter Y. 85973.1.1 it y of 3.412.2.7 [place] .3Rodger667806 MD Blair [facility] 2023-02-12 2023-02-12 [facility] Manuel Agarwalley 1.2.840.1 [id number] 1 [id number] Univers 07:00:00 23:59:00 Encounter Y. 61561.1.1 it y of 3.412.2.7 [place] .3Sarita637812 MD Soares8 [facility] 2023-02-12 2023-02-12 Clinical [facility], 1.2.840.1 [id number] Univers 16:15:00 16:30:00 Support Winter 93214.1.1 ity of Gini 3.412.2.7 [place] .3Rodger056716 MD Blair [facility] 2023-02-12 2023-02-12 [facility], 1.2.840.1 [id number] Univers 16:15:00 16:30:00 Support Winter 08618.1.1 ity of Gini 3.412.2.7 [place] .3.489516 MD Blair [facility] 2023-02-12 2023-02-12 [facility] 1.2.840.1 [id number] 050 [id number] Univers 00:00:00 00:00:00 ion Winter 13481.1.1 ity of Gini 3.412.2.7 [place] .3Rodger105591 MD Blair [facility] 2023-02-12 2023-02-12 [facility], 1.2.840.1 [id number] Univers 00:00:00 00:00:00 Only Winter 64372.1.1 ity of Gini 3.412.2.7 [place] .3Rodger931675 MD Blair [facility] 2023-02-12 2023-02-12 [facility], 1.2.840.1 [id number] 1211 Univers 00:00:00 00:00:00 Only Dustin 35043.1.1 ity of 3.412.2.7 [place] .3Sarita994779Dominique Soares8 [facility] 2023-02-12 2023-02-12 Documentat Luu, 1.2.840.1 [id number] Univers 00:00:00 00:00:00 ion Winter 24764.1.1 ity of Gini 3.412.2.7 [place] .3.995096 .8 [facility] 2023-02-12 2023-02-12 Orders Luu, 1.2.840.1 [id number] Univers 00:00:00 00:00:00 Only Winter 18728.1.1 ity of Gini 3.412.2.7 [place] .3.065349 .8 [facility] 2023-02-12 2023-02-12 Orders Bruce, 1.2.840.1 [id number] Univers 00:00:00 00:00:00 Only Dustin 24980.1.1 ity of 3.412.2.7 [place] .3.256669 .8 [facility] 2023-02-10 2023-02-10 Inpatient KYLAH AGARWALKENYA MDA MDA [id number] 16:26:42 16:26:45 Lauri o n 2023-02-10 2023-02-10 Inpatient KYLAH WANG TAO MDA [id number] 11:58:56 12:28:35 KOFI Lauri o n 2023-02-10 2023-02-10 Inpatient KYLAH WANG [facility] MDA [id number] 10:33:31 12:07:35 KOFI Lauri o n 2023-02-10 2023-02-10 Orders Charla Solis 1.2.840.1 [id number] 11 [id number] Univers 00:00:00 00:00:00 Only B 75277.1.1 ity of 3.412.2.7 [place] .3.785720 .8 [facility] 2023-02-10 2023-02-10 Orders Charla Solis 1.2.840.1 [id number] 11 [id number] Univers 00:00:00 00:00:00 Only B 03048.1.1 ity of 3.412.2.7 [place] .3.454581 .8 [facility] 2023-02-09 2023-02-09 Inpatient KYLAH WANG MDA MDA [id number] 20:20:46 20:27:48 KOFI Lauri o n 2023-02-08 2023-02-08 [facility] Manuel Agarwalley 1.2.840.1 [id number] 1 [id number] Univers 06:00:00 23:59:00 Encounter Y. 57898.1.1 it y of 3.412.2.7 [place] .3.123448 .8 [facility] 2023-02-08 2023-02-08 [facility] 1.2.840.1 [id number] 1 [id number] Univers 06:00:00 23:59:00 Encounter Y. 98422.1.1 it y of 3.412.2.7 [place] .3.493737 .8 [facility] 2023-02-08 2023-02-08 [facility] MDA MDA [id number] 11:08:59 11:38:36 Soy DERRICK Portillo rso n 2023-02-08 2023-02-08 [facility] KENYA MDA MDA [id number] 10:14:12 10:14:16 Lauri o n 2023-02-06 2023-02-06 Inpatient THAO OSORIO MDA MDA [id number] 15:39:36 16:04:43 Lauri o n 2023-02-06 2023-02-06 Inpatient THAO OSORIO MDA MDA [id number] 13:24:20 14:51:55 Lauri o n 2023-02-06 2023-02-06 Inpatient THAO OSORIO MDA MDA [id number] 13:24:15 14:51:51 Lauri o n 2023-02-06 2023-02-06 Travel 1.2.840.1 1.2.389.410 7325 [id number] Univers 00:00:00 00:00:00 42678.1.1 350.1.13.41 ity of 3.412.2.7 [place].3.698 [place] .3.9785[place] 084.8 .8 [facility] 2023-02-06 2023-02-06 Travel 1.2.840.1 1.2.840.181 2420 [id number] Univers 00:00:00 00:00:00 37072.1.1 350.1.13.41 ity of 3.412.2.7 2.[place].7.3.698 [place] .3.790430 084.8 MD Soares8 [facility] 2023-02-05 2023-02-05 Telephone [facility], 1.2.840.1 [id number] Univers 00:00:00 00:00:00 Vaibhav 89858.1.1 ity of 3.412.2.7 [place] .3.202167 MD Soares8 [facility] 2023-02-05 2023-02-05 [facility] 1.2.840.1 [id number] Univers 00:00:00 00:00:00 Vaibhav 90940.1.1 ity of 3.412.2.7 [place] .3.947901 MD Soares8 [facility] 2023-02-04 2023-02-04 Clinical [facility], 1.2.840.1 [id number] Univers 09:45:00 12:39:12 Support Winter 43007.1.1 ity of Gini 3.412.2.7 [place] .3.269137 MD Blair [facility] 2023-02-04 2023-02-04 [facility], 1.2.840.1 [id number] Univers 09:45:00 12:39:12 Support Winter 00298.1.1 ity of Gini 3.412.2.7 [place] .3.398115 MD Blair [facility] 2023-02-04 2023-02-04 [facility] [id number] 12:23:55 12:34:00 CELYNE Lauri olivier 2023-02-04 2023-02-04 Outpatient KENYA CARRION [facility] [id number] 11:16:00 11:43:29 Laurichrissy olivier 2023-02-04 2023-02-04 Follow-Up KYLAH Power, 1.2.840.1 [id number] [facility] 10:40:00 11:00:00 Celarturo 33686.1.1 ity of 3.412.2.7 [place] .3.986950 MD Soares8 [facility] 2023-02-04 2023-02-04 Follow-Up Kenny Power, 1.2.840.1 [id number] Univers 10:40:00 11:00:00 Celarturo 19128.1.1 ity of 3.412.2.7 [place] .3.348899 MD Blair [facility] 2023-02-04 2023-02-04 Travel 1.2.840.1 1.2.456.864 2799 [id number] Univers 00:00:00 00:00:00 92312.1.1 350.1.13.41 ity of 3.412.2.7 2.[place]7.3.698 [place] .3.988359 084.8 MD Blair [facility] 2023-02-04 2023-02-04 Travel 1.2.840.1 1.2.601.777 2201 [id number] Univers 00:00:00 00:00:00 04633.1.1 350.1.13.41 ity of 3.412.2.7 2.2.7.3.698 [place] .3.915485 084.8 MD Blair [facility] 2023-02-03 2023-02-03 Outpatient KENYA CARRION [facility] [id number] 14:18:38 14:50:54 Laurichrissy olivier 2023-02-03 2023-02-03 Infusion KYLAH Power, 1.2.840.1 [id number] [facility] 11:00:00 14:13:00 Celyne 71529.1.1 ity of 3.412.2.7 [place] .3.359737 .8 [facility] 2023-02-03 2023-02-03 Infusion Kenny Power, 1.2.840.1 [id number] 1 [id number] Univers 11:00:00 14:13:00 Celarturo 41224.1.1 ity of 3.412.2.7 [place] .3.292965 .8 [facility] 2023-02-03 2023-02-03 Anabell Hdez, 1.2.840.1 [id number] Univers 00:00:00 00:00:00 Only Lorena 97692.1.1 ity of Kayla 3.412.2.7 [place] .3.134631 MD Blair [facility] 2023-02-03 2023-02-03 Travel 1.2.840.1 1.2.356.325 2659 [id number] Univers 00:00:00 00:00:00 04082.1.1 350.1.13.41 ity of 3.412.2.7 2.[place].7.3.698 [place] .3.067572 084.8 MD Blair [facility] 2023-02-03 2023-02-03 Anabell Hdez, 1.2.840.1 [id number] Univers 00:00:00 00:00:00 Only Lorena 95696.1.1 ity of Kayla 3.412.2.7 [place] .3.302985 MD Blair [facility] 2023-02-03 2023-02-03 Travel 1.2.840.1 1.2.340.949 9781 [id number] Univers 00:00:00 00:00:00 04436.1.1 350.1.13.41 ity of 3.412.2.7 2.2.7.3.698 [place] .3.288059 084.8 MD Blair [facility] 2023-02-02 2023-02-02 Outpatient KENYA CARRION [facility] [id number] 13:32:42 14:29:34 [facility] 2023-02-02 2023-02-02 Travel 1.2.840.1 1.2.776.976 7000 [id number] Univers 00:00:00 00:00:00 66921.1.1 350.1.13.41 ity of 3.412.2.7 2.2.7.3.698 [place] .3.418814 084.8 .8 [facility] 2023-02-02 2023-02-02 Travel 1.2.840.1 1.2.610.989 6188 [id number] Univers 00:00:00 00:00:00 68719.1.1 350.1.13.41 ity of 3.412.2.7 2.[place].7.3.698 [place] .3.800113 084.8 .8 [facility] 2023-01-26 2023-02-01 [facility] 1.2.840.1 [id number] [facility] 16:06:00 18:28:00 Encounter Jad Patel 11277.1.1 ity of Amanda Proctor 3.412.2.7 T Jaycee Castillo .3.920426 Brock Quijano .Lilly And evelin Deshpande [facility] 2023-01-26 2023-02-01 [facility] 1.2.840.1 [id number] Univers 16:06:00 18:28:00 Encounter Jad Patel 57627.1.1 ity of Amanda Proctor 3.412.2.7 T Jaycee Castillo .3.664100 Brock Quijano .Lilly And evelin Deshpande [facility] 2023-02-01 2023-02-01 Inpatient KENYA CARRION [facility] [id number] 15:12:03 15:12:06 [facility] 2023-01-31 2023-01-31 Rohith Madrigal 1Rodger2.840.1 [id number] Univers 00:00:00 00:00:00 Glenda Peñaloza 31444.1.1 i ty of 3.412.2.7 [place] .3.035037 MD Soares8 [facility] 2023-01-31 2023-01-31 Rohith Madrigal, 1.2.840.1 [id number] 6014 Univers 00:00:00 00:00:00 Glenda Peñaloza 43364.1.1 i ty of 3.412.2.7 [place] .3.143637 MD Soares8 [facility] 2023-01-29 2023-01-29 Inpatient KT [facility] [id number] 12:45:23 14:59:56 Suraj DESHPANDE 2023-01-28 2023-01-28 Telephone Jonathan, 1.2.840.1 [id number] [id number] Univers 00:00:00 00:00:00 Felisa Costa 17827.1.1 ity of 3.412.2.7 [place] .3.727261 MD Soares8 [facility] 2023-01-28 2023-01-28 Anabell Hdez 1.2.840.1 [id number] Univers 00:00:00 00:00:00 Only Lorena 35970.1.1 ity of Kayla 3.412.2.7 [place] .3.903991 MD Blair [facility] 2023-01-28 2023-01-28 Telephone Jonathan 1.2.840.1 [id number] [id number] Univers 00:00:00 00:00:00 Felisa Costa 27944.1.1 ity of 3.412.2.7 [place] .3.090860 MD Blair [facility] 2023-01-28 2023-01-28 Anabell Hdez 1.2.840.1 [id number] 5134 Univers 00:00:00 00:00:00 Only Lorena 70612.1.1 ity of Kayla 3.412.2.7 [place] .3.272332 MD Blair [facility] 2023-01-27 2023-01-27 Inpatient KYLAH HANCOCK TAO MDA [id number] 17:00:08 17:15:25 PARK olivier 2023-01-27 2023-01-27 Inpatient KENYA CARRION [facility] MDA [id number] 16:29:18 16:29:21 Lauri olivier 2023-01-26 2023-01-26 Travel 1.2.840.1 1.2.619.006 9158 [id number] Univers 00:00:00 00:00:00 61197.1.1 350.1.13.41 ity of 3.412.2.7 2.[place]7.3.698 [place] .3.633744 084.8 MD Blair [facility] 2023-01-26 2023-01-26 Telephone Castillo, 1.2.840.1 [id number] 1104 [id number] Univers 00:00:00 00:00:00 Felisa M 27367.1.1 ity of 3.412.2.7 [place] .3.161832 MD Blair [facility] 2023-01-26 2023-01-26 Telephone Castillo, 1.2.840.1 [id number] 1104 [id number] Univers 00:00:00 00:00:00 Felisa M 45565.1.1 ity of 3.412.2.7 [place] .3.192971 MD Blair [facility] 2023-01-26 2023-01-26 Travel 1.2.840.1 1.2.195.657 1688 [id number] Univers 00:00:00 00:00:00 73455.1.1 350.1.13.41 ity of 3.412.2.7 2.2.7.3.698 [place] .3.968504 084.8 MD Blair [facility] 2023-01-26 2023-01-26 Telephone Castillo, 1.2.840.1 [id number] 1104 [id number] Univers 00:00:00 00:00:00 Felisa M 58063.1.1 ity of 3.412.2.7 [place] .3.617933 MD Blair [facility] 2023-01-26 2023-01-26 Telephone Castillo, 1.2.840.1 [id number] 1104 [id number] Univers 00:00:00 00:00:00 Felisa Costa 32718.1.1 ity of 3.412.2.7 [place] .3.441178 MD Blair [facility] 2023-01-25 2023-01-25 [facility] Kenya Agarwal 1.2.840.1 [id number] 1 [id number] Univers 06:00:00 23:59:00 Encounter Y. 72670.1.1 it y of 3.412.2.7 [place] .3.927110 MD Soares8 [facility] 2023-01-25 2023-01-25 [facility] Kenya Agarwal 1.2.840.1 [id number] 1 [id number] Univers 06:00:00 23:59:00 Encounter Y. 20440.1.1 it y of 3.412.2.7 [place] .3.689533 MD Blair [facility] 2023-01-25 2023-01-25 [facility] Kenya Carrion 1.2.840.1 [id number] Univers 11:30:00 12:09:30 Lian Jaramillo 72724.1.1 ity of 3.412.2.7 [place] .3.813276 MD Blair [facility] 2023-01-25 2023-01-25 [facility] Kenya Agarwal 1.2.840.1 [id number] Univers 11:30:00 12:09:30 Lian Jaramillo 10458.1.1 ity of 3.412.2.7 [place] .3.017748 MD Blair [facility] 2023-01-25 2023-01-25 Telephone Jonathan, 1.2.840.1 [id number] 1104 [id number] Univers 00:00:00 00:00:00 Felisa Costa 24702.1.1 ity of 3.412.2.7 [place] .3.774084 MD Blair [facility] 2023-01-25 2023-01-25 Telephone Castillo, 1.2.840.1 [id number] [id number] Univers 00:00:00 00:00:00 Felisa Costa 05311.1.1 ity of 3.412.2.7 [place] .3.507063 MD Soares8 [facility] 2023-01-22 2023-01-22 Outpatient KENYA CARRION MDA [facility] [id number] 14:08:15 14:37:49 [facility] 2023-01-22 2023-01-22 Nutrition Kenya Carrion. 1.2.840.1 [id number] Univers 10:30:00 13:09:10 Lian Jaramillo 47436.1.1 ity of 3.412.2.7 [place] .3.799576 MD Blair [facility] 2023-01-22 2023-01-22 Nutrition Kenya Agarwal. 1.2.840.1 [id number] 23 [id number] Univers 10:30:00 13:09:10 Lian Jaramillo 51581.1.1 ity of 3.412.2.7 [place] .3.414592 MD Blair [facility] 2023-01-22 2023-01-22 Travel 1.2.840.1 1.2.876.254 3999 [id number] Univers 00:00:00 00:00:00 53247.1.1 350.1.13.41 ity of 3.412.2.7 2.2.7.3.698 [place] .3.939454 084.8 MD Blair [facility] 2023-01-22 2023-01-22 Travel 1.2.840.1 1.2.108.233 4831 [id number] Univers 00:00:00 00:00:00 67460.1.1 350.1.13.41 ity of 3.412.2.7 2.2.7.3.698 [place] .3.231084 084.8 MD lBair [facility] 2023-01-21 2023-01-21 Infusion KYLAH Hdez, 1.2.840.1 [id number] [id number] Univers 08:45:00 14:45:37 Lorena 64364.1.1 ity of Kayla 3.412.2.7 [place] .3.001530 MD Blair [facility] 2023-01-21 2023-01-21 Infusion Lemuel, 1.2.840.1 [id number] 92389 [id number] Univers 08:45:00 14:45:37 Lorena 89175.1.1 ity of Kayla 3.412.2.7 [place] .3.360577 MD Blair [facility] 2023-01-21 2023-01-21 Outpatient KENYA CARRION [facility] MDA [id number] 13:30:26 14:05:07 [facility] 2023-01-21 2023-01-21 Follow-Up KYLAH Power, 1.2.840.1 [id number] Univers 08:00:00 09:18:40 Celyne 02829.1.1 ity of 3.412.2.7 [place] .3.751764 MD Blair [facility] 2023-01-21 2023-01-21 Follow-Up Kenny Power, 1.2.840.1 [id number] Univers 08:00:00 09:18:40 Celyne 93285.1.1 ity of 3.412.2.7 [place] .3.058465 MD Blair [facility] 2023-01-21 2023-01-21 Travel 1.2.840.1 1.2.852.312 7145 [id number] Univers 00:00:00 00:00:00 26286.1.1 350.1.13.41 ity of 3.412.2.7 2.2.7.3.698 [place] .3.168805 084.8 MD Blair [facility] 2023-01-21 2023-01-21 Travel 1.2.840.1 1.2.804.021 3044 [id number] Univers 00:00:00 00:00:00 79632.1.1 350.1.13.41 ity of 3.412.2.7 2.2.7.3.698 [place] .3.707151 08Dannielle.8 MD Blair [facility] 2023-01-20 2023-01-20 Outpatient KYLAH AGARWALKENYA [facility] [id number] 12:58:49 13:48:03 Lauri o n 2023-01-20 2023-01-20 Consult EL Coreyyyalagunt 1.2.840.1 [id number] 11 [id number] Univers 11:20:00 12:57:27 a, 20571.1.1 ity of [place].412.2.7 [place] .3.739596 MD Blair [facility] 2023-01-20 2023-01-20 Consult Koyyalagunt 1.2.840.1 [id number] 11 [id number] Univers 11:20:00 12:57:27 a, 34831.1.1 ity of [place].412.2.7 [place] .3.955361 MD Blair [facility] 2023-01-20 2023-01-20 Outpatient KYLAH HDEZ [facility] [id number] 12:44:37 12:57:03 LORENA oilvier 2023-01-20 2023-01-20 Documentat Nabil, 1.2.840.1 [id number] 895 [id number] Univers 00:00:00 00:00:00 ion Nereida Vickie 06479.1.1 it y of 3.412.2.7 [place] .3.067425 MD Blair [facility] 2023-01-20 2023-01-20 Travel 1.2.840.1 1.2.082.418 9551 [id number] Univers 00:00:00 00:00:00 61436.1.1 350.1.13.41 ity of 3.412.2.7 2.2.7.3.698 [place] .3.369918 084Rodger8 MD Blair [facility] 2023-01-20 2023-01-20 Documentat Nabil, 1.2.840.1 [id number] [id number] Univers 00:00:00 00:00:00 ion Nereida Johnston 92382.1.1 it y of 3.412.2.7 [place] .3.515023 MD Soares8 [facility] 2023-01-20 2023-01-20 Travel 1.2.840.1 1.2.429.550 6303 [id number] Univers 00:00:00 00:00:00 48782.1.1 350.1.13.41 ity of 3.412.2.7 2.2.7.3.698 [place] .3.334731 084.8 .8 [facility] 2023-01-19 2023-01-19 Clinical KYLAH Luu, 1.2.840.1 [id number] Univers 15:30:00 16:24:21 Support Winter 91703.1.1 ity of Gini 3.412.2.7 [place] .3.911059 MD Soares8 [facility] 2023-01-19 2023-01-19 Clinical [place], 1.2.840.1 [id number] 64929 Univers 15:30:00 16:24:21 Support Winter 64073.1.1 ity of Gini 3.412.2.7 [place] .3.306704 MD Soares8 [facility] 2023-01-19 2023-01-19 Outpatient KENYA CARRION [facility] [id number] 14:39:40 15:15:48 Lauri [facility] 2023-01-19 2023-01-19 Outpatient Marsha SHERIFF [facility] [id number] Univers 09:00:00 09:00:00 NEREIDA pierre of [facility] 2023-01-19 2023-01-19 Travel 1.2.840.1 1.2.639.185 4218 [id number] Univers 00:00:00 00:00:00 53874.1.1 350.1.13.41 ity of 3.412.2.7 2.2.7.3.698 [place] .3.032032 084.8 .8 [facility] 2023-01-19 2023-01-19 Travel 1.2.840.1 1.2.655.087 8941 [id number] Univers 00:00:00 00:00:00 79343.1.1 350.1.13.41 ity of 3.412.2.7 2.2.7.3.698 [place] .3.381380 084.8 .8 [facility] 2023-01-11 2023-01-18 [facility] 1.2.840.1 [id number] Univers 19:31:00 19:34:00 Encounter Roberto Carlos Walsh 36830.1.1 [facility] 3.412.2.7 [facility] [place] [facility] .3.516838 Brock Quijano .8 And [facility] 2023-01-11 2023-01-18 [facility] 1.2.840.1 [id number] [facility] 19:31:00 19:34:00 Encounter Roberto Carlos Walsh 48816.1.1 [facility] 3.412.2.7 [facility] [place] [facility] .3.918925 Brock Quijano .8 And [facility] 2023-01-17 2023-01-18 Inpatient KYLAH AGRAWAL MDA MDA [id number] 23:34:01 00:08:34 BROCK olivier 2023-01-15 2023-01-15 Outpatient R RADIOLOGY [facility] [id number] Univers 10:00:00 10:00:00 ity of [facility] 2023-01-14 2023-01-14 Inpatient KYLAH AGRAWAL MDA MDA [id number] 13:45:42 14:35:12 BROCK olivier 2023-01-14 2023-01-14 Inpatient KENYA CARRION MDA, MDA [id number] 10:28:01 10:28:06 Lauri olivier 2023-01-14 2023-01-14 Orders Gorman, 1.2.840.1 [id number] Univers 00:00:00 00:00:00 Only [place] 29408.1.1 [place] .3.27[place] .8 [facility] 2023-01-14 2023-01-14 Orders Gorman, 1.2.840.1 [id number] Univers 00:00:00 00:00:00 Only [place] 89273.1.1 [place] .3.954412 .8 [facility] 2023-01-13 2023-01-13 Inpatient KYLAH AGRAWALTAO [facility] [id number] MD 18:17:55 18:32:15 [facility] 2023-01-12 2023-01-12 Inpatient KENYA CARRION [facility] MDA [id number] MD 16:36:56 16:36:59 [facility] 2023-01-12 2023-01-12 Refmaddie Ordaz, 1.2.840.1 [id number] Univers 00:00:00 00:00:00 Cerena 94365.1.1 ity of 3.412.2.7 [place] .3.397393 MD Soares8 [facility] 2023-01-12 2023-01-12 Rohith Ordaz, 1.2.840.1 [id number] Univers 00:00:00 00:00:00 Cerena 41201.1.1 ity of 3.412.2.7 [place] .3.028891 MD Soares8 [facility] 2023-01-11 2023-01-11 Travel 1.2.840.1 1.2.474.250 [id number] Univers 00:00:00 00:00:00 43807.1.1 350.1.13.41 ity of 3.412.2.[place]3.698 [place] .3.421152 084.8 .8 [facility] 2023-01-11 2023-01-11 Telephone Castillo, 1.2.840.1 [id number] Univers 00:00:00 00:00:00 Felisa Costa 29770.1.1 ity of 3.412.2.7 [place] .3.623330 MD Soares8 [facility] 2023-01-11 2023-01-11 Travel 1.2.840.1 1.2.619.998 [id number] Univers 00:00:00 00:00:00 82169.1.1 350.1.13.41 ity of 3.412.2.7 [place].3.698 [place] .3.958181 084.8 MD Soares8 [facility] 2023-01-11 2023-01-11 Telephone Castillo, 1.2.840.1 [id number] Univers 00:00:00 00:00:00 Felisa Costa 45640.1.1 ity of 3.412.2.7 [place] .3.656652 MD Soares8 [facility] 2023-01-08 2023-01-08 Outpatient KENYA CARRION MDA MDA [id number] 13:23:30 14:05:33 [facility] 2023-01-08 2023-01-08 Nutrition Kenya Carrion. 1.2.840.1 [id number] Univers 10:00:00 10:47:33 Lian Jaramillo 83833.1.1 ity of 3.412.2.7 [place] .3.219183 MD Blair [facility] 2023-01-08 2023-01-08 Nutrition Kenya Agarwal. 1.2.840.1 [id number] [facility] 10:00:00 10:47:33 Lian Jaramillo 12197.1.1 ity of 3.412.2.7 [place] .3.961518 MD Soares8 [facility] 2023-01-08 2023-01-08 Travel 1.2.840.1 1.2.262.128 [id number] Univers 00:00:00 00:00:00 68408.1.1 350.1.13.41 ity of 3.412.2.7 2.[place]7.3.698 [place] .3.890231 084.8 MD Blair [facility] 2023-01-08 2023-01-08 Travel 1.2.840.1 1.2.934.283 [id number] Univers 00:00:00 00:00:00 15540.1.1 350.1.13.41 ity of 3.412.2.[place].3.698 [place] .3.045513 084.8 MD Blair [facility] 2023-01-07 2023-01-07 Infusion KYLAH Hdez, 1.2.840.1 [id number] Univers 09:00:00 13:58:13 [place] 39497.1.1 ity of Kayal 3.412.2.7 [place] .3.467224 MD Blair [facility] 2023-01-07 2023-01-07 Infusion Lemuel, 1.2.840.1 [id number] Univers 09:00:00 13:58:13 Lorena 46643.1.1 ity of Kayla 3.412.2.7 [place] .3.359443 MD lBair [facility] 2023-01-07 2023-01-07 Follow-Up KYLAH Hdez, 1.2.840.1 [id number] [id number] Univers 08:40:00 09:41:57 Lorena 86951.1.1 ity of Kay[place] 3.412.2.7 [place] .3.866748 MD Blair [facility] 2023-01-07 2023-01-07 Follow-Up Lemuel, 1.2.840.1 [id number] 1102 [id number] Univers 08:40:00 09:41:57 Lorena 63034.1.1 ity of Kay[place] 3.412.2.7 [place] .3.520979 MD Blair [facility] 2023-01-07 2023-01-07 Outpatient KENYA CARRION [facility] [id number] 09:08:41 09:08:41 Lauri clint n 2023-01-07 2023-01-07 Outpatient KYLAH HDEZ [facility] [id number] 08:18:38 08:32:37 LORENA olivier 2023-01-07 2023-01-07 Travel 1.2.840.1 1.2.559.202 6000 [id number] Univers 00:00:00 00:00:00 45692.1.1 350.1.13.41 ity of 3.412.2.7 [place]7.3.698 [place] .3.8275[place] 084.8 MD Soares8 [facility] 2023-01-07 2023-01-07 Travel 1.2.840.1 1.2.877.138 3910 [id number] [facility] 00:00:00 00:00:00 33770.1.1 350.1.13.41 ity of 3.412.2.7 2.[place].7.3.698 [place] .3.567041 084.8 .8 [facility] 2023-01-06 2023-01-06 Outpatient KENYA CARRION [facility] [id number] 14:37:02 14:59:48 Lauri o n 2023-01-06 2023-01-06 Infusion KYLAH Hdez, 1.2.840.1 [id number] Univers 11:00:00 13:00:00 Lorena 27073.1.1 ity of [place] 3.412.2.7 [place] .3.670801 .8 [facility] 2023-01-06 2023-01-06 Infusion Lemuel, 1.2.840.1 [id number] [id number] Univers 11:00:00 13:00:00 Lorena 97472.1.1 ity of Kayla 3.412.2.7 [place] .3.804393 .8 [facility] 2023-01-06 2023-01-06 Travel 1.2.840.1 1.2.510.606 9430 [id number] Univers 00:00:00 00:00:00 91241.1.1 350.1.13.41 ity of 3.412.2.7 2.2.7.3.698 [place] .3.353042 084.8 MD Blair [facility] 2023-01-06 2023-01-06 Travel 1.2.840.1 1.2.104.837 2040 [id number] [facility] 00:00:00 00:00:00 35164.1.1 350.1.13.41 ity of 3.412.2.7 2.2.7.3.698 [place] .3.856864 084.8 MD Blair [facility] 2023-01-05 2023-01-05 Outpatient KENYA CARRION [facility] [id number] 13:16:48 13:59:03 [facility] 2023-01-05 2023-01-05 Travel 1.2.840.1 1.2.661.512 8378 [id number] [facility] 00:00:00 00:00:00 98881.1.1 350.1.13.41 ity of 3.412.2.7 2.2.7.3.698 [place] .3.794475 084.8 MD Blair [facility] 2023-01-05 2023-01-05 Travel 1.2.840.1 1.2.026.497 8055 [id number] [facility] 00:00:00 00:00:00 44569.1.1 350.1.13.41 ity of 3.412.2.7 2.2.7.3.698 [place] .3.722854 084.8 MD Blair [facility] 2023-01-04 2023-01-04 Dwayne Hdez 1.2.840.1 [id number] [id number] [facility] 10:45:00 14:51:21 Lorena 69232.1.1 ity of Kay[place] 3.412.2.7 [place] .3.658318 MD Blair [facility] 2023-01-04 2023-01-04 Infusion Hdez, 1.2.840.1 [id number] [id number] Univers 10:45:00 14:51:21 Lorena 19746.1.1 ity of Kay[place] 3.412.2.7 [place] .3.164110 MD Blair [facility] 2023-01-04 2023-01-04 Clinical Jus, 1.2.840.1 [id number] Univers 14:00:00 14:25:20 Support Winter 19537.1.1 ity of Gini 3.412.2.7 [place] .3.917346 MD Soares8 [facility] 2023-01-04 2023-01-04 Clinical Luu, 1.2.840.1 [id number] [id number] [facility] 14:00:00 14:25:20 Support Winter 58167.1.1 ity of Gini 3.412.2.7 [place] .3.046760 MD Blair [facility] 2023-01-04 2023-01-04 Outpatient KENYA CARRION [facility] MDA [id number] 13:10:05 13:43:01 [facility] 2023-01-04 2023-01-04 Travel 1.2.840.1 1.2.221.608 9536 [id number] Univers 00:00:00 00:00:00 19251.1.1 350.1.13.41 ity of 3.412.2.7 2.2.7.3.698 [place] .3.307669 084.8 MD Blair [facility] 2023-01-04 2023-01-04 Travel 1.2.840.1 1.2.617.212 6547 [id number] [facility] 00:00:00 00:00:00 42593.1.1 350.1.13.41 ity of 3.412.2.7 2.2.7.3.698 [place] .3.981745 084.8 MD Blair [facility] 2023-01-01 2023-01-01 Infusion KYLAH Hdez, 1.2.840.1 [id number] [id number] Univers 09:00:00 14:20:57 Lorena 16400.1.1 ity of Kay[place] 3.412.2.7 [place] .3.280636 MD Soares8 [facility] 2023-01-01 2023-01-01 Dwayne Hdez 1.2.840.1 [id number] [id number] Univers 09:00:00 14:20:57 Lorena 20353.1.1 ity of Kayla 3.412.2.7 [place] .3.877172 MD Blair [facility] 2023-01-01 2023-01-01 Outpatient KENYA CARRION [facility] MDA [id number] 13:31:26 14:06:59 Lauri olivier 2023-01-01 2023-01-01 Follow-Up KYLAH Power, 1.2.840.1 [id number] Univers 08:40:00 09:31:03 Celyne 40348.1.1 ity of 3.412.2.7 [place] .3.506723 MD Soares8 [facility] 2023-01-01 2023-01-01 Follow-Up Kenny Power, 1.2.840.1 [id number] Univers 08:40:00 09:31:03 Celyne 83260.1.1 ity of 3.412.2.7 [place] .3.640859 MD Soares8 [facility] 2023-01-01 2023-01-01 Outpatient KYLAH HDEZ MDA MDA [id number] 08:19:22 08:27:50 LORENA olivier 2023-01-01 2023-01-01 Rohith Guardado, 1.2.840.1 [id number] Univers 00:00:00 00:00:00 Brittni Benjamin 49741.1.1 ity of 3.412.2.7 [place] .3.036034 MD Blair [facility] 2023-01-01 2023-01-01 Travel 1.2.840.1 1.2.160.440 6445 [id number] Univers 00:00:00 00:00:00 14912.1.1 350.1.13.41 ity of 3.412.2.7 2.2.7.3.698 [place] .3.108183 084.8 MD Blair [facility] 2023-01-01 2023-01-01 Rohith Guardado, 1.2.840.1 [id number] Univers 00:00:00 00:00:00 Brittni Benjamin 77339.1.1 ity of 3.412.2.7 [place] .3.131703 MD Soares8 [facility] 2023-01-01 2023-01-01 Travel 1.2.840.1 1.2.178.890 1345 [id number] Univers 00:00:00 00:00:00 51888.1.1 350.1.13.41 ity of 3.412.2.7 2.2.7.3.698 [place] .3.579067 084.8 MD Blair [facility] 2022-12-31 2022-12-31 Gala Kwon, 1.2.840.1 [id number] 1103 [id number] Univers 00:00:00 00:00:00 Tita Mayorga 53468.1.1 ity of 3.412.2.7 [place] .3.972647 MD Blair [facility] 2022-12-31 2022-12-31 Anabell Hdez 1.2.840.1 [id number] Univers 00:00:00 00:00:00 Only Lorena 16658.1.1 ity of Kayla 3.412.2.7 [place] .3.793187 MD Blair [facility] 2022-12-31 2022-12-31 Telephone Doyle, 1.2.840.1 [id number] 1103 [id number] Univers 00:00:00 00:00:00 Tita Mayorga 94220.1.1 ity of 3.412.2.7 [place] .3.390379 MD Blair [facility] 2022-12-31 2022-12-31 Anabell Hdez 1.2.840.1 [id number] Univers 00:00:00 00:00:00 Only Lorena 27693.1.1 ity of Kayla 3.412.2.7 [place] .3.793868 MD Soares8 [facility] 2022-12-30 2022-12-30 [facility] Gordon, 1.2.840.1 [id number] Univers 09:33:09 23:59:00 Encounter Miguel Fernandez 98873.1.1 ity of 3.412.2.7 [place] .3.942913 MD Soares8 [facility] 2022-12-30 2022-12-30 [facility], 1.2.840.1 [id number] Univers 09:33:09 23:59:00 Encounter Miguel Fernandez 15564.1.1 ity of 3.412.2.7 [place] .3.325979 MD Blair [facility] 2022-12-30 2022-12-30 Outpatient KENYA CARRION [facility] [id number] 13:48:18 14:15:54 [facility] 2022-12-30 2022-12-30 Travel 1.2.840.1 1.2.853.247 9470 [id number] Univers 00:00:00 00:00:00 14089.1.1 350.1.13.41 ity of 3.412.2.7 2.2.7.3.698 [place] .3.001108 084.8 MD Blair [facility] 2022-12-30 2022-12-30 Travel 1.2.840.1 1.2.676.420 5169 [id number] Univers 00:00:00 00:00:00 94540.1.1 350.1.13.41 ity of 3.412.2.7 2.2.7.3.698 [place] .3.476122 084.8 MD Blair [facility] 2022-12-29 2022-12-29 [facility] Alcides, 1.2.840.1 [id number] Univers 08:00:00 23:59:00 Encounter Suzanne 88041.1.1 it y of 3.412.2.7 [place] .3.564346 MD Blair [facility] 2022-12-29 2022-12-29 [facility], 1.2.840.1 [id number] Univers 08:00:00 23:59:00 Encounter Suzanne 93872.1.1 it y of 3.412.2.7 [place] .3.393830 MD Blair [facility] 2022-12-29 2022-12-29 Outpatient KENYA CARRION [facility] [id number] 13:04:30 13:32:42 [facility] 2022-12-29 2022-12-29 Travel 1.2.840.1 1.2.451.921 4045 [id number] Univers 00:00:00 00:00:00 59999.1.1 350.1.13.41 ity of 3.412.2.7 2.2.7.3.698 [place] .3.653286 084.8 MD Blair [facility] 2022-12-29 2022-12-29 Travel 1.2.840.1 1.2.238.667 4186 [id number] Univers 00:00:00 00:00:00 43279.1.1 350.1.13.41 ity of 3.412.2.7 2.2.7.3.698 [place] .3.052341 084.8 MD Blair [facility] 2022-12-28 2022-12-28 Clinical [facility], 1.2.840.1 [id number] 09094 Univers 14:00:00 15:17:09 Support Winter 43482.1.1 ity of Gini 3.412.2.7 [place] .3.277037 MD Blair [facility] 2022-12-28 2022-12-28 [facility], 1.2.840.1 [id number] [id number] Univers 14:00:00 15:17:09 Support Winter 17608.1.1 ity of Gini 3.412.2.7 [place] .3.482822 MD Blair [facility] 2022-12-28 2022-12-28 Outpatient KENYA CARRION TAO MDA [id number] 13:27:37 14:08:09 Lauri o 2022-12-28 2022-12-28 Nutrition Manuel Carrionley Y. 1.2.840.1 [id number] Univers 10:00:00 10:53:45 Lian Jaramillo 83240.1.1 ity of 3.412.2.7 [place] .3.408586 MD Soares8 [facility] 2022-12-28 2022-12-28 Mendez Agarwal Kenya Johnson. 1.2.840.1 [id number] [facility] 10:00:00 10:53:45 Lian Jaramillo 16721.1.1 ity of 3.412.2.7 [place] .3.555402 MD Soares8 [facility] 2022-12-28 2022-12-28 Travel 1.2.840.1 1.2.534.570 2127 [id number] Univers 00:00:00 00:00:00 44616.1.1 350.1.13.41 ity of 3.412.2.7 2.2.7.3.698 [place] .3.394032 084.8 MD Blair [facility] 2022-12-28 2022-12-28 Travel 1.2.840.1 1.2.945.777 1061 [id number] Univers 00:00:00 00:00:00 04639.1.1 350.1.13.41 ity of 3.412.2.7 2.2.7.3.698 [place] .3.382341 084.8 MD Blair [facility] 2022-12-25 2022-12-25 Outpatient MANUEL CARRIONVINEET BURGER MDA [id number] 14:06:37 15:08:07 [facility] 2022-12-25 2022-12-25 Travel 1.2.840.1 1.2.557.052 1405 [id number] Univers 00:00:00 00:00:00 71388.1.1 350.1.13.41 ity of 3.412.2.7 2.2.7.3.698 [place] .3.964249 084.8 MD Blair [facility] 2022-12-25 2022-12-25 Travel 1.2.840.1 1.2.179.926 2871 [id number] Univers 00:00:00 00:00:00 70157.1.1 350.1.13.41 ity of 3.412.2.7 2.2.7.3.698 [place] .3.246399 084.8 MD Blair [facility] 2022-12-24 2022-12-24 Infusion KYLAH Hdez, 1.2.840.1 [id number] [id number] Univers 08:45:00 15:46:35 Lorena 76323.1.1 ity of Kayla 3.412.2.7 [place] .3.538683 MD Blair [facility] 2022-12-24 2022-12-24 Infusion Lemuel, 1.2.840.1 [id number] Univers 08:45:00 15:46:35 Lorena 54439.1.1 ity of Kayla 3.412.2.7 [place] .3.826367 MD Soares8 [facility] 2022-12-24 2022-12-24 Outpatient KENYA CARRION [facility] [id number] 13:51:59 14:40:52 [facility] 2022-12-24 2022-12-24 Follow-Up KYLAH Power, 1.2.840.1 [id number] Univers 08:20:00 10:15:28 Celyne 13855.1.1 ity of 3.412.2.7 [place] .3.057009 MD Blair [facility] 2022-12-24 2022-12-24 Follow-Up Kenny Power, 1.2.840.1 [id number] Univers 08:20:00 10:15:28 Celyne 17418.1.1 ity of 3.412.2.7 [place] .3.341192 MD Blair [facility] 2022-12-24 2022-12-24 Outpatient KYLAH HDEZ MDA MDA [id number] 09:15:48 09:27:18 LORENA Ruelas [facility] 2022-12-24 2022-12-24 Telephone Castillo, 1.2.840.1 [id number] [id number] Univers 00:00:00 00:00:00 Felisa Costa 71498.1.1 ity of 3.412.2.7 [place] .3.190796 MD Soares8 [facility] 2022-12-24 2022-12-24 Telephone Keyna Agarwal 1.2.840.1 [id number] Univers 00:00:00 00:00:00 Y. 78136.1.1 ity of 3.412.2.7 [place] .3.130268 MD Blair [facility] 2022-12-24 2022-12-24 Telephone Carnew, 1.2.840.1 [id number] 1103 [id number] Univers 00:00:00 00:00:00 Tita Mayorga 51774.1.1 ity of 3.412.2.7 [place] .3.882725 MD Blair [facility] 2022-12-24 2022-12-24 Telephone Carnew, 1.2.840.1 [id number] 1103 [id number] Univers 00:00:00 00:00:00 Tita Mayorga 08005.1.1 ity of 3.412.2.7 [place] .3.224503 MD Blair [facility] 2022-12-24 2022-12-24 Telephone [facility], 1.2.840.1 [id number] Univers 00:00:00 00:00:00 Celarturo 27686.1.1 ity of 3.412.2.7 [place] .3.396472 MD Blair [facility] 2022-12-24 2022-12-24 Travel 1.2.840.1 1.2.531.048 0632 [id number] Univers 00:00:00 00:00:00 10786.1.1 350.1.13.41 ity of 3.412.2.7 2.2.7.3.698 [place] .3.995125 084.8 MD Blair [facility] 2022-12-24 2022-12-24 Orders Kenny Power, 1.2.840.1 [id number] Univers 00:00:00 00:00:00 Only Vaibhav 92857.1.1 ity of 3.412.2.7 [place] .3.456631 MD Soares8 [facility] 2022-12-24 2022-12-24 Rohith Sheriff [facility] 1.2.840.114 [id number] Univers 00:00:00 00:00:00 [facility] 350.1.13.10 it y of [facility] 4.2.7.2.686 Frankie as JAVIER?BLEA [phone] [address] MEDICAL OFFICE [facility]ILD[facility] 2022-12-24 2022-12-24 Telephone Jonathan 1.2.840.1 [id number] [id number] Univers 00:00:00 00:00:00 Felisa Costa 34336.1.1 ity of 3.412.2.7 [place] .3.366705 MD Blair [facility] 2022-12-24 2022-12-24 Telephone Kenya Agarwal 1.2.840.1 [id number] Univers 00:00:00 00:00:00 Y. 44822.1.1 ity of 3.412.2.7 [place] .3.800100 MD Soares8 [facility] 2022-12-24 2022-12-24 Telephone Doyle, 1.2.840.1 [id number] 1103 [id number] Univers 00:00:00 00:00:00 Tita Mayorga 55598.1.1 ity of 3.412.2.7 [place] .3.804967 MD Soares8 [facility] 2022-12-24 2022-12-24 Telephone Doyle 1.2.840.1 [id number] 1103 [id number] Univers 00:00:00 00:00:00 Tita Mayorga 27898.1.1 ity of 3.412.2.7 [place] .3.284113 MD Blair [facility] 2022-12-24 2022-12-24 [facility] Lori, 1.2.840.1 [id number] Univers 00:00:00 00:00:00 Vaibhav 75449.1.1 ity of 3.412.2.7 [place] .3.905984 MD Blair [facility] 2022-12-24 2022-12-24 Travel 1.2.840.1 1.2.003.647 2137 [id number] Univers 00:00:00 00:00:00 88663.1.1 350.1.13.41 ity of 3.412.2.7 2.2.7.3.698 [place] .3.328905 084.8 MD Blair [facility] 2022-12-24 2022-12-24 [facility], 1.2.840.1 [id number] 11 [id number] Univers 00:00:00 00:00:00 Only Vaibhav 85153.1.1 ity of 3.412.2.7 [place] .3.115919 MD Blair [facility] 2022-12-23 2022-12-23 [facility], 1.2.840.1 [id number] Univers 09:30:00 23:59:00 Encounter Otilia 09891.1.1 it y of 3.412.2.7 [place] .3.045956 MD Soares8 [facility] 2022-12-23 2022-12-23 [facility], 1.2.840.1 [id number] Univers 09:30:00 23:59:00 Encounter Otilia 56806.1.1 it y of 3.412.2.7 [place] .3.056759 MD Blair [facility] 2022-12-23 2022-12-23 Outpatient KENYA CARRION MDA MDA [id number] 13:50:34 14:48:40 Lauri olivier 2022-12-23 2022-12-23 Clinical EL Winter Luuley 1.2.840.2 [id number] Univers 10:15:00 10:30:00 Support Dony Calhoun 20977.1.1 ity of 3.412.2.7 [place] .3.774094 MD Soares8 [facility] 2022-12-23 2022-12-23 Clinical Winter Luuley 1.2.840.0 [id number] Univers 10:15:00 10:30:00 Support Dony Calhoun 48414.1.1 ity of 3.412.2.7 [place] .3.850425 MD Blair [facility] 2022-12-23 2022-12-23 Documentat Luu, 1.2.840.1 [id number] Univers 00:00:00 00:00:00 jennifer Max 25951.1.1 ity of Gini 3.412.2.7 [place] .3.258919 MD Soares8 [facility] 2022-12-23 2022-12-23 Telephone [facility] [place], 1.2.840.1 [id number] Univers 00:00:00 00:00:00 Vaihbav 10402.1.1 ity of 3.412.2.7 [place] .3.745245 MD Blair [facility] 2022-12-23 2022-12-23 Telephone Doyle, 1.2.840.1 [id number] 1103 [id number] Univers 00:00:00 00:00:00 Tita Mayorga 05593.1.1 ity of 3.412.2.7 [place] .3.881096 MD Blair [facility] 2022-12-23 2022-12-23 Travel 1.2.840.1 1.2.315.799 7310 [id number] Univers 00:00:00 00:00:00 33990.1.1 350.1.13.41 ity of 3.412.2.7 2.2.7.3.698 [place] .3.788208 084.8 MD Blair [facility] 2022-12-23 2022-12-23 Orders Lemuel, 1.2.840.1 [id number] Univers 00:00:00 00:00:00 Only Lorena 17974.1.1 ity of Kayla 3.412.2.7 [place] .3.070968 MD Soares8 [facility] 2022-12-23 2022-12-23 Telephone [facility], 1.2.840.1 [id number] Univers 00:00:00 00:00:00 Vaibhav 98809.1.1 ity of 3.412.2.7 [place] .3.156179 MD Soares8 [facility] 2022-12-23 2022-12-23 Telephone Doyle, 1.2.840.1 [id number] 1103 [id number] Univers 00:00:00 00:00:00 Tita Mayorga 16604.1.1 ity of 3.412.2.7 [place] .3.733520 MD Blair [facility] 2022-12-23 2022-12-23 Travel 1.2.840.1 1.2.472.562 7726 [id number] Univers 00:00:00 00:00:00 03934.1.1 350.1.13.41 ity of 3.412.2.7 2.2.7.3.698 [place] .3.672520 084.8 MD Blair [facility] 2022-12-23 2022-12-23 Anabell Hdez, 1.2.840.1 [id number] Univers 00:00:00 00:00:00 Only Lorena 15196.1.1 ity of Kayla 3.412.2.7 [place] .3.962247 MD Blair [facility] 2022-12-23 2022-12-23 Documentat Luu, 1.2.840.1 [id number] Univers 00:00:00 00:00:00 ion Winter 29297.1.1 ity of Gini 3.412.2.7 [place] .3.273487 MD Soares8 [facility] 2022-12-18 2022-12-18 Orders [place], 1.2.840.1 [id number] Univers 00:00:00 00:00:00 Only Lindy 60588.1.1 ity of Ashleigh 3.412.2.7 [place] .3.911285 MD Soares8 [facility] 2022-12-18 2022-12-18 Orders [place], 1.2.840.1 [id number] Univers 00:00:00 00:00:00 Only Lindy 23561.1.1 ity of Ashleigh 3.412.2.7 [place] .3.240179 MD Soares8 [facility] 2022-12-18 2022-12-18 Orders Lan, 1.2.840.1 [id number] Univers 00:00:00 00:00:00 Only Lindy 01250.1.1 ity of [place] 3.412.2.7 [place] .3.849096 MD Soares8 [facility] 2022-12-18 2022-12-18 Orders Lan, 1.2.840.1 [id number] Univers 00:00:00 00:00:00 Only Lindy 52581.1.1 ity of [place]leigh 3.412.2.7 [place] .3.629047 MD Soares8 [facility] 2022-12-17 2022-12-17 Clinical EL Kenya Agarwal 1.2.840.1 [id number] Univers 08:00:00 10:48:06 Support Maria Luz Cochran 20414.1.1 ity of 3.412.2.7 [place] .3.229480 MD Soares8 [facility] 2022-12-17 2022-12-17 Kenya Osullivan 1.2.840.1 [id number] Univers 08:00:00 10:48:06 Support Maria Luz Cochran 91750.1.1 ity of 3.412.2.7 [place] .3.473251 MD Blair [facility] 2022-12-17 2022-12-17 Outpatient [facility] [id number] 08:37:01 10:43:17 WINTER olivier 2022-12-17 2022-12-17 Documentat [place], 1.2.840.1 [id number] Univers 00:00:00 00:00:00 ion Winter 74391.1.1 ity of [place] 3.412.2.7 [place] .3.075752 MD Soares8 [facility] 2022-12-17 2022-12-17 Documentat [place], 1.2.840.1 [id number] Univers 00:00:00 00:00:00 jennifer Max 92175.1.1 ity of [place] 3.412.2.7 [place] .3.279017 MD Blair [facility] 2022-12-17 2022-12-17 Documentat [place], 1.2.840.1 [id number] Univers 00:00:00 00:00:00 jennifer Max 39697.1.1 ity of [place] 3.412.2.7 [place] .3.903413 MD Blair [facility] 2022-12-17 2022-12-17 Anabell Hdez, 1.2.840.1 [id number] Univers 00:00:00 00:00:00 Only [place]ore[place] 12542.1.1 ity of Kayla 3.412.2.7 [place] .3.958519 MD Blair [facility] 2022-12-17 2022-12-17 Travel 1.2.840.1 1.2.129.160 [id number] Univers 00:00:00 00:00:00 61258.1.1 350.1.13.41 ity of 3.412.2.7 [place]3.698 [place] .3.562146 084.8 MD Blair [facility] 2022-12-17 2022-12-17 [facility], 1.2.840.1 [id number] Univers 00:00:00 00:00:00 Only Winter 34206.1.1 ity of [place] 3.412.2.7 [place] .3.907502 MD Blair [facility] 2022-12-17 2022-12-17 Documentat [place], 1.2.840.1 [id number] Univers 00:00:00 00:00:00 ion Winter 40374.1.1 ity of [place] 3.412.2.7 [place] .3.357691 MD Blair [facility] 2022-12-17 2022-12-17 [facility] 1.2.840.1 [id number] [id number] Univers 00:00:00 00:00:00 ion Winter 90322.1.1 ity of [place] 3.412.2.7 [place] .3.672268 MD Blair [facility] 2022-12-17 2022-12-17 [facility], 1.2.840.1 [id number] Univers 00:00:00 00:00:00 ion Winter 89650.1.1 ity of [place] 3.412.2.7 [place] .3.116754 MD Blair [facility] 2022-12-17 2022-12-17 [facility], 1.2.840.1 [id number] Univers 00:00:00 00:00:00 Only [place] 11075.1.1 ity of Kayla 3.412.2.7 [place] .3.095270 MD Blair [facility] 2022-12-17 2022-12-17 Travel 1.2.840.1 1.2.550.457 [id number] [id number] Univers 00:00:00 00:00:00 15469.1.1 350.1.13.41 ity of 3.412.2.7 [place]3.698 [place] .3.218679 084.8 MD Blair [facility] 2022-12-17 2022-12-17 [facility], 1.2.840.1 [id number] Univers 00:00:00 00:00:00 Only Winter 88257.1.1 ity of [place] 3.412.2.7 [place] .3.535180 MD Soares8 [facility] 2022-12-16 2022-12-16 [facility], 1.2.840.1 [id number] Univers 00:00:00 00:00:00 Only Winter 88942.1.1 ity of [place] 3.412.2.7 [place] .3.236763 MD Soares8 [facility] 2022-12-16 2022-12-16 Telephone [place], 1.2.840.1 [id number] Univers 00:00:00 00:00:00 Felisa M 61017.1.1 ity of 3.412.2.7 [place] .3.829737 MD Soares8 [facility] 2022-12-16 2022-12-16 Telephone Rosmery Dickinson 1.2.840.1 [id number] 1 [id number] Univers 00:00:00 00:00:00 M 32190.1.1 ity of 3.412.2.7 [place] .3.982079 MD Soares8 [facility] 2022-12-16 2022-12-16 [facility], 1.2.840.1 [id number] Univers 00:00:00 00:00:00 Only Winter 89211.1.1 ity of Gini 3.412.2.7 [place] .3.258215 MD Soares8 [facility] 2022-12-16 2022-12-16 Telephone Castillo, 1.2.840.1 [id number] 1102 [id number] Univers 00:00:00 00:00:00 Felisa M 81878.1.1 ity of 3.412.2.7 [place] .3.210723 MD Soares8 [facility] 2022-12-16 2022-12-16 Telephone Rosmery Dickinson 1.2.840.1 [id number] 1 [id number] Univers 00:00:00 00:00:00 M 26113.1.1 ity of 3.412.2.7 [place] .3Rodger223407 .8 [facility] 2022-12-15 2022-12-15 [facility] Kenya Agarwal 1.2.840.1 [id number] 1 [id number] Univers 08:42:55 23:59:00 Encounter Y. 84437.1.1 it y of 3.412.2.7 [place] .3.288658 .8 [facility] 2022-12-15 2022-12-15 [facility] Kenya Agarwal 1.2.840.1 [id number] 1 [id number] Univers 08:42:55 23:59:00 Encounter Y. 61267.1.1 it y of 3.412.2.7 Bere .3Rodger438958 .8 [facility] 2022-12-09 2022-12-15 [facility] Mer Milian 1.2.840.1 [id number] Univers 21:01:00 19:30:00 Encounter Roberto Carlos Walsh 65211.1.1 ity of Regulo, Abelino-Izzy 3.412.2.7 Graicela Rivas .3.077022 Jaycee Muñoz .8 Travis Hebert, Derrick Cancer Ordaz, Cerena Ce [facility] 2022-12-09 2022-12-15 [facility] Mer Milian 1.2.840.1 [id number] Univers 21:01:00 19:30:00 Encounter Roberto Carlos Walsh 33816.1.1 ity of Regulo, Abelino-Izyz 3.412.2.7 [place] Graciela Adorno .3.760466 Jaycee Muñoz .8 Travis Hebert-Leon, Derrick Cancer Ordaz, Cerena Ce [facility] 2022-12-15 2022-12-15 Outpatient KYLAH BAI MDA MDA [id number] 08:39:37 15:02:22 RON olivier 2022-12-15 2022-12-15 [facility] KYLAH USSAN TAO [facility] [id number] MD 09:34:01 10:58:12 [facility] 2022-12-15 2022-12-15 Rohith Montenegro, 1.2.840.1 [id number] Univers 00:00:00 00:00:00 Lindy 37482.1.1 ity of [place] 3.412.2.7 [place] .3.481383 MD Soares8 [facility] 2022-12-15 2022-12-15 Orders Koyyalagunt 1.2.840.1 [id number] 11 [id number] Univers 00:00:00 00:00:00 Only a, 51786.1.1 ity of [place]2.7 [place] .3.326238 MD Soares8 [facility] 2022-12-15 2022-12-15 Orders Koyyalagunt 1.2.840.1 [id number] 11 [id number] Univers 00:00:00 00:00:00 Only a, 51748.1.1 it[place] of [place]2.7 [place] .3.815858 MD Soares8 [facility] 2022-12-15 2022-12-15 Orders Razmandi, 1.2.840.1 [id number] 1102 [id number] Univers 00:00:00 00:00:00 Only Maya 39943.1.1 ity of 3.412.2.7 [place] .3.656909 MD Soares8 [facility] 2022-12-15 2022-12-15 Ophth Exam Razmandi, 1.2.840.1 [id number] 1 [id number] Univers 00:00:00 00:00:00 Maya 56847.1.1 ity of 3.412.2.7 [place] .3.041013 MD Soares8 [facility] 2022-12-15 2022-12-15 Rohith Montenegro, 1.2.840.1 [id number] Univers 00:00:00 00:00:00 Lindy 58259.1.1 ity of [place] 3.412.2.7 [place] .3.819950 MD Soares8 [facility] 2022-12-15 2022-12-15 Orders Koyyalagunt 1.2.840.1 [id number] 11 [id number] Univers 00:00:00 00:00:00 Only a, 86484.1.1 ity of [place]2.7 [place] .3.242584 MD Soares8 [facility] 2022-12-15 2022-12-15 Orders Koyyalagunt 1.2.840.1 [id number] 11 [id number] Univers 00:00:00 00:00:00 Only a, 08486.1.1 ity of [place].412.2.7 [place] .3.448083 MD Soares8 [facility] 2022-12-15 2022-12-15 Orders Reggiemandi, 1.2.840.1 [id number] 1102 [id number] Univers 00:00:00 00:00:00 Only Maya 56680.1.1 ity of 3.412.2.7 [place] .3.017970 MD Soares8 [facility] 2022-12-15 2022-12-15 Ophth Exam Shaziai, 1.2.840.1 [id number] 1 [id number] Univers 00:00:00 00:00:00 Maya 81830.1.1 ity of 3.412.2.7 [place] .3.601944 MD Soares8 [facility] 2022-12-14 2022-12-14 Inpatient KENYA CARRION [facility] 1102 [id number] 17:21:25 17:21:31 [facility] 2022-12-14 2022-12-14 Orders Martínez 1.2.840.1 [id number] Univers 00:00:00 00:00:00 Only Wilder 79171.1.1 ity of 3.412.2.7 [place] .3.424551 MD Soares8 [facility] 2022-12-14 2022-12-14 Orders Martínez, 1.2.840.1 [id number] Univers 00:00:00 00:00:00 Only Wilder 10097.1.1 ity of 3.412.2.7 [place] .3.145509 MD Soares8 [facility] 2022-12-11 2022-12-11 [facility] KENYA AGARWAL [facility] [id number] 11:49:45 11:49:48 [facility] 2022-12-11 2022-12-11 Telephone Gomez, 1.2.840.1 [id number] 1102 [id number] Univers 00:00:00 00:00:00 Maridel P 60559.1.1 it y of 3.412.2.7 [place] .3.626285 MD Soares8 [facility] 2022-12-11 2022-12-11 Telephone Gomez, 1.2.840.1 [id number] 1102 [id number] Univers 00:00:00 00:00:00 Maridel P 94042.1.1 it y of 3.412.2.7 [place] .3.024776 MD Soares8 [facility] 2022-12-10 2022-12-10 Travel 1.2.840.1 1.2.633.450 0596 [id number] Univers 00:00:00 00:00:00 16501.1.1 350.1.13.41 ity of 3.412.2.7 2.2.7.3.698 [place] .3.277714 084.8 MD Soares8 [facility] 2022-12-10 2022-12-10 Orders Martínez, 1.2.840.1 [id number] Univers 00:00:00 00:00:00 Only Wilder 91453.1.1 ity of 3.412.2.7 [place] .3.261497 MD Soares8 [facility] 2022-12-10 2022-12-10 Travel 1.2.840.1 1.2.661.033 2211 [id number] Univers 00:00:00 00:00:00 81426.1.1 350.1.13.41 ity of 3.412.2.7 2.2.7.3.698 [place] .3.288329 084.8 MD Soares8 [facility] 2022-12-10 2022-12-10 Orders Martínez, 1.2.840.1 [id number] Univers 00:00:00 00:00:00 Only Wilder 68436.1.1 ity of 3.412.2.7 [place] .3.195781 MD Soares8 [facility] 2022-12-08 2022-12-08 Telephone Lan, 1.2.840.1 [id number] 058 [id number] Univers 00:00:00 00:00:00 Lindy 94111.1.1 ity of [place] 3.412.2.7 [place] .3.718456 MD Soares8 [facility] 2022-12-08 2022-12-08 Orders Lemuel, 1.2.840.1 [id number] 0212 Univers 00:00:00 00:00:00 Only Lorena 70542.1.1 ity of Kayla 3.412.2.7 [place] .3.846321 MD Soares8 [facility] 2022-12-08 2022-12-08 Telephone Lan, 1.2.840.1 [id number] [id number] Univers 00:00:00 00:00:00 Lindy 38689.1.1 ity of [place] 3.412.2.7 [place] .3.869380 MD Soares8 [facility] 2022-12-08 2022-12-08 Orders Lemuel, 1.2.840.1 [id number] [id number] Univers 00:00:00 00:00:00 Only Lorena 89230.1.1 ity of Kayla 3.412.2.7 [place] .3.087025 MD Soares8 [facility] 2022-12-05 2022-12-05 Telephone Jus, 1.2.840.1 [id number] 1102 [id number] Univers 00:00:00 00:00:00 Winter 40745.1.1 ity of Gini 3.412.2.7 [place] .3.774810 MD Soares8 [facility] 2022-12-05 2022-12-05 [facility], 1.2.840.1 [id number] Univers 00:00:00 00:00:00 Only Winter 32054.1.1 ity of Gini 3.412.2.7 [place] .3.750185 MD Soares8 [facility] 2022-12-05 2022-12-05 [facility], 1.2.840.1 [id number] 1102 [id number] Univers 00:00:00 00:00:00 Winter 26236.1.1 ity of Gini 3.412.2.7 [place] .3.282591 MD Soares8 [facility] 2022-12-05 2022-12-05 [facility], 1.2.840.1 [id number] 5402 Univers 00:00:00 00:00:00 Only Winter 08468.1.1 ity of Gini 3.412.2.7 [place] .3.098752 MD Soares8 [facility] 2022-12-04 2022-12-04 [facility].840 .1 [id number] Univers 10:55:00 23:59:00 Encounter Lorena Hdez 46069.1.1 ity of 3.412.2.7 [place] .3.952382 MD Soares8 [facility] 2022-12-04 2022-12-04 [facility]840 .1 [id number] Univers 10:55:00 23:59:00 Encounter Lorena Hdez 17242.1.1 ity of 3.412.2.7 [place] .3.191144 MD Blair [facility] 2022-12-04 2022-12-04 Telephone Antonella, 1.2.840.1 [id number] 11 [id number] Univers 00:00:00 00:00:00 Red Costa 32956.1.1 it y of 3.412.2.7 [place] .3.325663 MD Soares8 [facility] 2022-12-04 2022-12-04 Multidisci Antonella, 1.2.840.1 [id number] 1 [id number] Univers 00:00:00 00:00:00 dali [place] 01592.1.1 it y of Visit 3.412.2.7 [place] .3.013313 MD Soares8 [facility] 2022-12-04 2022-12-04 Telephone Dimas, 1.2.840.1 [id number] 11 [id number] Univers 00:00:00 00:00:00 Maria Luz Lund 70904.1.1 ity of 3.412.2.7 [place] .3.566634 MD Soares8 [facility] 2022-12-04 2022-12-04 Telephone Antonella 1.2.840.1 [id number] 11 [id number] Univers 00:00:00 00:00:00 Red [place] 66809.1.1 it y of 3.412.2.7 [place] .3.027726 MD Soares8 [facility] 2022-12-04 2022-12-04 Multidaurelio Posada 1.2.840.1 [id number] 1 [id number] Univers 00:00:00 00:00:00 dali [place] 11538.1.1 it y of Visit 3.412.2.7 [place] .3Rodger398239 MD Soares8 [facility] 2022-12-04 2022-12-04 Telephone Dimas, 1.2.840.1 [id number] 11 [id number] Univers 00:00:00 00:00:00 Maria Luz Lund 63141.1.1 ity of 3.412.2.7 [place] .3.823085 MD Soares8 [facility] 2022-12-02 2022-12-02 Orders Lan 1.2.840.1 [id number] Univers 00:00:00 00:00:00 Only Lindy 87770.1.1 ity of [place] 3.412.2.7 [place] .3.420146 MD Soares8 [facility] 2022-12-02 2022-12-02 Orders Luu, 1.2.840.1 [id number] 8577 Univers 00:00:00 00:00:00 Only Winter 84807.1.1 ity of Gini 3.412.2.7 [place] .3.919717 MD Soares8 [facility] 2022-12-02 2022-12-02 Orders Lan, 1.2.840.1 [id number] Univers 00:00:00 00:00:00 Only Lindy 28731.1.1 ity of [place] 3.412.2.7 [place] .3.838340 MD Soares8 [facility] 2022-12-02 2022-12-02 [facility], 1.2.840.1 [id number] 8248 Univers 00:00:00 00:00:00 Only Winter 77145.1.1 ity of Gini 3.412.2.7 [place] .3.414317 MD Soares8 [facility] 2022-11-30 2022-11-30 Ancillary KYLAH Hdez, 1.2.840.1 [id number] 1102 [id number] Univers 08:15:00 10:00:00 Procedure Lorena 36314.1.1 i ty of Kayla 3.412.2.7 [place] .3.227685 MD Soares8 [facility] 2022-11-30 2022-11-30 Ancillary Hdez, 1.2.840.1 [id number] 1102 [id number] Univers 08:15:00 10:00:00 Procedure Lorena 45015.1.1 i ty of Kayla 3.412.2.7 [place] .3.063711 MD Soares8 [facility] 2022-11-30 2022-11-30 Travel 1.2.840.1 1.2.247.079 7482 [id number] Univers 00:00:00 00:00:00 48520.1.1 350.1.13.41 ity of 3.412.2.7 2.2.7.3.698 [place] .3.558067 084.8 MD Blari [facility] 2022-11-30 2022-11-30 Travel 1.2.840.1 1.2.838.008 1547 [id number] Univers 00:00:00 00:00:00 60351.1.1 350.1.13.41 ity of 3.412.2.7 2.2.7.3.698 [place] .3.948136 084.8 MD Blair [facility] 2022-11-27 2022-11-27 Ancillary EL Lan, 1.2.840.1 [id number] [id number] Univers 12:00:00 14:30:00 Procedure Lindy 25782.1.1 it y of [place] 3.412.2.7 [place] .3.121595 MD Blair [facility] 2022-11-27 2022-11-27 Ancillary Lan, 1.2.840.1 [id number] 724 [id number] Univers 12:00:00 14:30:00 Procedure Lindy 50868.1.1 it y of [place] 3.412.2.7 [place] .3.836026 MD Blair [facility] 2022-11-27 2022-11-27 Travel 1.2.840.1 1.2.499.961 9636 564318 Univers 00:00:00 00:00:00 15069.1.1 350.1.13.41 ity of 3.412.2.7 2.2.7.3.698 [place] .3.489075 084.8 MD Blair [facility] 2022-11-27 2022-11-27 Travel 1.2.840.1 1.2.795.542 9640 [id number] Univers 00:00:00 00:00:00 16644.1.1 350.1.13.41 ity of 3.412.2.7 2.2.7.3.698 [place] .3.162618 084.8 MD Blair [facility] 2022-11-26 2022-11-26 Office JAYESH Myers 1.2.840.114 [id number] [facility] 14:30:00 15:00:00 Visit Tracey AMBULATOR 350.1.13.21 College Y 0.2.7.2.686 of 123.7255461 Medi patsy 810 e 2022-11-26 2022-11-26 Outpatient KYLAH HDEZTAO MDA [id number] 13:07:20 13:20:48 LORNEA suarez n 2022-11-26 2022-11-26 Consult EL Kenny Power, 1.2.840.1 [id number] 11 [id number] Univers 11:00:00 13:02:56 Celyne 99128.1.1 ity of 3.412.2.7 [place] .3.382445 MD Soares8 [facility] 2022-11-26 2022-11-26 Consult Kenny Power, 1.2.840.1 [id number] 11 [id number] Univers 11:00:00 13:02:56 Celyne 99028.1.1 ity of 3.412.2.7 [place] .3.447161 MD Soares8 [facility] 2022-11-26 2022-11-26 Consult KYLAH Luu, 1.2.840.1 [id number] Univers 10:00:00 11:43:01 Winter 66846.1.1 ity of Gini 3.412.2.7 [place] .3.589821 MD Soares8 [facility] 2022-11-26 2022-11-26 Consult Luu, 1.2.840.1 [id number] Univers 10:00:00 11:43:01 Winter 61495.1.1 ity of Gini 3.412.2.7 [place] .3.417450 MD Soares8 [facility] 2022-11-26 2022-11-26 Travel 1.2.840.1 1.2.540.490 3668 [id number] Univers 00:00:00 00:00:00 50854.1.1 350.1.13.41 ity of 3.412.2.7 2.2.7.3.698 [place] .3.264668 084.8 MD Blair [facility] 2022-11-26 2022-11-26 Travel 1.2.840.1 1.2.998.225 8274 [id number] Univers 00:00:00 00:00:00 16410.1.1 350.1.13.41 ity of 3.412.2.7 2.2.7.3.698 [place] .3.251899 084.8 MD Blair [facility] 2022-11-24 2022-11-24 Lab David Nunez 1.2.840.1 [id number] Univers 00:00:00 00:00:00 Alexa Cantrell 70021.1.1 i ty of n 3.412.2.7 [place] .3.447214 MD Blair [facility] 2022-11-24 2022-11-24 Lab David Nunez 1.2.840.1 [id number] 52 [id number] Univers 00:00:00 00:00:00 Alexa Cantrell 60845.1.1 i ty of n 3.412.2.7 [place] .3.588446 MD Blair [facility] 2022-11-23 2022-11-23 Telephone Jeffy, 1.2.840.1 [id number] 1101 [id number] Univers 00:00:00 00:00:00 Macaela T 06749.1.1 it y of 3.412.2.7 [place] .3.074402 MD Blair [facility] 2022-11-23 2022-11-23 Telephone Jeffy, 1.2.840.1 [id number] 1101 [id number] Univers 00:00:00 00:00:00 Macaela T 41908.1.1 it y of 3.412.2.7 [place] .3.431675 MD Blair [facility] 2022-11-22 2022-11-22 Orders Olivier, 1.2.840.1 [id number] Univers 00:00:00 00:00:00 Only Berkley 74640.1.1 ity of 3.412.2.7 [place] .3.342804 .8 [facility] 2022-11-22 2022-11-22 Orders Olivier, 1.2.840.1 [id number] 7845 Univers 00:00:00 00:00:00 Only Berkley 25807.1.1 ity of 3.412.2.7 [place] .3.924560 .8 [facility] 2022-11-20 2022-11-20 Telephone Mateusz, 1.2.840.1 [id number] 1101 [id number] Univers 00:00:00 00:00:00 Elana 12282.1.1 ity of 3.412.2.7 [place] .3.851108 .8 [facility] 2022-11-20 2022-11-20 Telephone Mateusz 1.2.840.1 [id number] 1101 [id number] Univers 00:00:00 00:00:00 Elana 96334.1.1 ity of 3.412.2.7 [place] .3.850519 .8 [facility] 2022-11-18 2022-11-18 Refill Doctor [facility] 1.2.840.114 [id number] Univers 00:00:00 00:00:00 Unassigned, HEALTH 350.1.13.10 ity of [place] CLARA 4.2.7.2.686 Frankie as JAVIER?BLEA [id number] [address] OFFICE [facility] 2022-11-18 2022-11-18 Telephone Jaziel [facility] 1.2.053.469 6702 [id number] Univers 00:00:00 00:00:00 Nereida HEALTH 350.1.13.10 it y of [place] 4.2.7.2.686 Frankie as JAVIER?BLEA [id number] [address] 2022-11-17 2022-11-17 Outpatient KYLAH POSADA MDA MDA [id number] 11:49:34 15:08:37 RED olivier 2022-11-17 2022-11-17 Office Kenya Carrion 1.2.840.1 [id number] 11 [id number] Univers 09:15:00 11:44:36 Visit Y. 88849.1.1 ity of 3.412.2.7 [place] .3.744211 MD Blair [facility] 2022-11-17 2022-11-17 Office Kenya Agarwal 1.2.840.1 [id number] 11 [id number] Univers 09:15:00 11:44:36 Visit Y. 06957.1.1 ity of 3.412.2.7 [place] .3.309628 MD Blair [facility] 2022-11-17 2022-11-17 NPR EL Kenya Agarwal 1.2.840.1 [id number] 11 [id number] Univers 08:45:00 09:16:44 Y. 64449.1.1 ity of 3.412.2.7 [place] .3.563741 MD Blair [facility] 2022-11-17 2022-11-17 NPR Kenya Agarwal 1.2.840.1 [id number] 11 [id number] Univers 08:45:00 09:16:44 Y. 84501.1.1 ity of 3.412.2.7 [place] .3.062467 MD Blair [facility] 2022-11-17 2022-11-17 Travel 1.2.840.1 1.2.518.754 5826 [id number] Univers 00:00:00 00:00:00 90342.1.1 350.1.13.41 ity of 3.412.2.7 2.2.7.3.698 [place] .3.959212 084.8 MD Blair [facility] 2022-11-17 2022-11-17 Telephone Jaziel TNDERREK 1.2.349.436 2698 6046 Univers 00:00:00 00:00:00 [employer] 350.1.13.10 it y of [place] 4.2.7.2.686 Frankie as JAVIER?BLEA [phone] [address] MEDICAL OFFICE BUILDING 2022-11-17 2022-11-17 Travel 1.2.840.1 1.2.117.482 4571 [id number] Univers 00:00:00 00:00:00 91674.1.1 350.1.13.41 ity of 3.412.2.7 2.2.7.3.698 [place] .3.691062 084.8 MD Soares8 [facility] 2022-11-16 2022-11-16 Orders Antonella 1.2.840.1 [id number] 1101 [id number] Univers 00:00:00 00:00:00 Only Red [place] 74521.1.1 it y of 3.412.2.7 [place] .3.963930 MD Soares8 [facility] 2022-11-16 2022-11-16 Orders Antonella 1.2.840.1 [id number] 1101 [id number] Univers 00:00:00 00:00:00 Only Red [place] 42042.1.1 it y of 3.412.2.7 [place] .3.988804 MD Blair [facility] 2022-11-13 2022-11-13 [facility] 1.2.686.275 8784 7693 Univers 00:00:00 00:00:00 [facility] 350.1.13.10 it y of [place] 4.2.7.2.686 Frankie as JAVIER?BLEA [id number] [address] OFFICE BUILDING 2022-11-12 2022-11-12 Orders Yinka 1.2.840.1 [id number] 1101 [id number] Univers 00:00:00 00:00:00 Only Chloe Alejandre 06919.1.1 it y of 3.412.2.7 [place] .3.541265 MD Blair [facility] 2022-11-12 2022-11-12 Orders Antonella 1.2.840.1 [id number] 1101 [id number] Univers 00:00:00 00:00:00 Only Red [place] 30598.1.1 it y of 3.412.2.7 [place] .3.063506 MD Blair [facility] 2022-11-12 2022-11-12 Orders Honeycutt, 1.2.840.1 [id number] 1101 [id number] Univers 00:00:00 00:00:00 Only Chloe Alejandre 05640.1.1 it y of 3.412.2.7 [place] .3.603145 .8 [facility] 2022-11-12 2022-11-12 Orders Antonella, 1.2.840.1 [id number] 1101 [id number] Univers 00:00:00 00:00:00 Only Red [place] 03149.1.1 it y of 3.412.2.7 [place] .3.229433 .8 [facility] 2022-11-07 2022-11-07 [facility] 1.2.840.114 [id number] Univers 00:00:00 00:00:00 [place] 97731.1.13.10 it y of [place] 4.2.7.2.686 Frankie as JAVIER?BLEA [id number] [address] OFFICE [facility] 2022-11-03 2022-11-03 [facility] 1.2.840.114 [id number] Univers 00:00:00 00:00:00 [place] 97731.1.13.10 it y of [place] 4.2.7.2.686 Frankie as JAVIER?BLEA [id number] [address] OFFICE [facility] 2022-11-03 2022-11-03 [facility] 1.2.840.114 [id number] Univers 00:00:00 00:00:00 [facility] 350.1.13.10 it y of [place] 4.2.7.2.686 Frankie as JAVIER?BLEA [phone] [address] OFFICE [facility] 2022-10-21 2022-10-21 Office [facility] 1.2.840.114 [id number] Univers 09:30:00 09:45:00 Visit [facility] [id number] it y of [place] [id number] Frankie as JAVIER?BLEA [phone] [address] MEDICAL OFFICE [facility] 2022-10-21 2022-10-21 Outpatient R JAZIEL [facility] [id number] Univers 09:30:00 09:24:24 NEREIDA henri [facility] 2022-10-01 2022-10-01 [facility]ill [facility] 1.2.840.114 [id number] Univers 00:00:00 00:00:00 [facility] [id number] it y of [place] 4.2.7.2.686 Frankie as JAVIER?BLEA [phone] [address] MEDICAL OFFICE [facility] 2022-09-21 2022-09-21 Outpatient R JAZIEL [facility] [id number] Univers 10:00:00 10:00:00 NEREIDA henri [facility] 2022-09-21 2022-09-21 [facility] 1.2.840.1 [id number] Univers 10:00:00 10:00:00 Visit Jaziel [facility] [id number] [facility] [id number] Frankie as JAVIER?BLEA [phone] [address] OFFICE [facility] 2022-09-21 2022-09-21 Office [facility] 1.2.840.114 [id number] Univers 09:45:00 10:00:00 Visit [facility] [id number] it y of [place] [id number] Frankie as JAVIER?BLEA [phone] [address] MEDICAL OFFICE [facility] 2022-09-18 2022-09-18 Refmaddie [facility] 1.2.840.114 [id number] Univers 00:00:00 00:00:00 [facility] [id number] it y of [place] [id number] Frankie as JAVIER?BLEA [phone] [address] MEDICAL OFFICE [facility] 2022-09-17 2022-09-17 Refmaddie [facility] 1.2.840.114 [id number] Univers 00:00:00 00:00:00 [facility]re[facility] [id number] it y of [place] [id number] Frankie as JAVIER?BLEA [phone] [address] OFFICE [facility] 2022-09-07 2022-09-07 [facility] 1.2.840.114 [id number] Univers 00:00:00 00:00:00 [facility] [id number] it y of [place] [id number] Frankie as JAVIER?BLEA [phone] [address] OFFICE [facility] 2022-09-03 2022-09-03 [facility] 1.2.840.114 [id number] Univers 00:00:00 00:00:00 [facility] [id number] it y of [place] [id number] Frankie as JAVIER?BLEA [phone] [address] OFFICE [facility] 2022-09-03 2022-09-03 [facility] 1.2.840.114 [id number] Univers 00:00:00 00:00:00 [facility]re[facility] 350.1.13.10 it y of [place] [id number] Frankie as JAVIER?BLEA [phone] [address] OFFICE [facility] 2022-08-31 2022-08-31 Office JAYESH OLSEN 1.2.840.114 [id number] [facility] 13:14:07 15:10:18 Visit CHINMAY AMBULATOR 350.1.13.21 College Y 0.2.7.2.686 of [id number] [facility] 810 e 2022-08-28 2022-08-28 Outpatient R JO [facility] [id number] Univers 08:05:50 23:59:00 BLANCHE pierre of [facility] 2022-08-28 2022-08-28 [facility] 1.2.840.114 [id number] Univers 08:05:50 23:59:00 Encounter Blanche LEE 350.1.13.10 ity [facility] 4.2.7.2.686 [place] [facility] [id number] [address] 2022-08-28 2022-08-28 Joiner Royal, Jenniffer Lab Main [facility] 1.2.8 40.114 [id number] Univers 08:15:00 08:30:00 Visit GlenBrittny benjaminlorenzo LEE 350.1.13.10 ity of PAULJOSE LUIS 4.2.7.2.686 [place] [facility] [id number] Nh mary [address] 2022-08-28 2022-08-28 Telephone [facility] 1.2.570.089 [id number] Univers 00:00:00 00:00:00 Blanche HEALTH 350.1.13.10 it y of [place] 4.2.7.2.686 Frankie as JAVIER?BLEA [id number] [address] OFFICE [facility] 2022-08-26 2022-08-26 Outpatient [facility] [id number] Univers 00:00:00 00:00:00 BLANCHE pierre [facility] 2022-08-25 2022-08-25 Outpatient [facility] [id number] Univers 10:00:00 11:23:37 BLANCHE pierre [facility] 2022-08-25 2022-08-25 Office [facility] 1.2.840.114 [id number] Univers 10:00:00 11:23:37 Visit Blanche MIR 350.1.13.10 it y [facility] 4.2.7.2.686 Frankie as JAVIER?BLEA [id number] [address] OFFICE [facility] 2022-08-24 2022-08-24 Telephone [facility] 1.2.101.212 [id number] Univers 00:00:00 00:00:00 Blanche HEALTH 350.1.13.10 it y of [place] 4.2.7.2.686 Frankie as JAVIER?BLEA [id number] [address] OFFICE [facility] 2022-08-21 2022-08-21 Rohith [facility] 1.2.840.114 [id number] Univers 00:00:00 00:00:00 Nereida HEALTH 350.1.13.10 it y of [place] 4.2.7.2.686 Frankie as JAVIER?BLEA [phone] [address] OFFICE [facility] 2022-08-18 2022-08-18 [facility] 1.2.840.114 [id number] Univers 00:00:00 00:00:00 Nereida HEALTH 350.1.13.10 it y of [place] 4.2.7.2.686 Frankie as JAVIER?BLEA [id number] [address] OFFICE [facility] 2022-08-11 2022-08-[address] [facility] 1.2.840.114 [id number] [facility] 15:06:02 15:06:02 Visit LOBITO AMBULATOR 350.1.13.21 College Y 0.2.7.2.686 of [id number] [facility] 800 e 2022-08-06 2022-08-06 [facility] 1.2.840.114 [id number] Univers 00:00:00 00:00:00 Nereida HEALTH 350.1.13.10 it y of [place] 4.2.7.2.686 Frankie as JAVIER?BLEA [phone] [address] OFFICE [facility] 2022-08-05 2022-08-05 [facility] 1.2.840.114 [id number] Univers 00:00:00 00:00:00 Nereida HEALTH 350.1.13.10 it y of [place] 4.2.7.2.686 Frankie as JAVIER?BLEA [id number] [address] OFFICE [facility] 2022-07-30 2022-07-30 Rohith [facility] 1.2.840.114 [id number] Univers 00:00:00 00:00:00 Nereida HEALTH 350.1.13.10 it y of [place] 4.2.7.2.686 Frankie as JAVIER?BLEA [id number] [address] OFFICE [facility] 2022-07-28 2022-07-28 Outpatient Angelica WALTER [facility] [id number] [facility] 11:11:47 23:59:00 2022-07-28 2022-07-28 [facility] Angelica Mathis [facility] [id number] 11:11:47 23:59:[address] [facility] 2022-07-28 2022-07-28 [facility] Angelica Mathis [facility] [id number] [facility] 11:11:47 23:59:[address] [facility] 2022-07-26 2022-07-26 [facility] 1.2.840.114 [id number] Univers 00:00:00 00:00:00 Nereida HEALTH 350.1.13.10 it y of [place] 4.2.7.2.686 Frankie as JAVIER?BLEA [id number] [address] 2022-07-21 2022-07-21 [facility] 1.2.840.114 [id number] Univers 00:00:00 00:00:00 Nereida HEALTH 350.1.13.10 it y of [place] 4.2.7.2.686 Frankie as JAVIER?BLEA [id number] [address] 2022-07-19 2022-07-19 [facility] 1.2.840.114 [id number] Univers 00:00:00 00:00:00 Nereida HEALTH 350.1.13.10 it y of [place] 4.2.7.2.686 Frankie as JAVIER?BLEA [id number] [address] OFFICE [facility] 2022-07-09 2022-07-09 [facility] 1.2.840.114 [id number] Univers 00:00:00 00:00:00 Nereida HEALTH 350.1.13.10 it y of [place] 4.2.7.2.686 Frankie as JAVIER?BLEA [id number] [address] 2022-07-08 2022-07-08 Outpatient Angelica MATHIS [facility] [id number] [facility] 11:43:31 12:15:51 Colleg e of Medicin e 2022-07-08 2022-07-08 Outside Angelica Mathis [facility] [id number] 00:00:00 00:00:00 Orders [facility] 2022-07-08 2022-07-08 Outside Angelica Mathis [facility] [id number] 00:00:00 00:00:00 Orders [facility] 2022-07-04 2022-07-04 [facility] 1.2.840.114 [id number] Univers 00:00:00 00:00:00 [place] HEALTH 350.1.13.10 it y of [place] 4.2.7.2.686 Frankie as JAVIER?BLEA [phone] [address] OFFICE [facility] 2022-06-30 2022-06-30 Rohith SheriffE[facility] 1.2.840.114 [id number] Univers 00:00:00 00:00:00 [facility] 350.1.13.10 it y of [place] 4.2.7.2.686 Frankie as JAVIER?BLEA [id number] [address] OFFICE [facility] 2022-06-23 2022-06-23 Outpatient Marsha CALERO [facility] [id number] Univers 09:00:00 09:00:00 GERMAIN pierre [facility] 2022-06-21 2022-06-21 Rohith [facility] 1.2.840.114 [id number] Univers 00:00:00 00:00:00 [facility] 350.1.13.10 it y of [place] 4.2.7.2.686 Frankie as JAVIER?BLEA [id number] [address] OFFICE [facility] 2022-06-17 2022-06-17 Outpatient Marsha SHERIFF [facility] [id number] Univers 10:00:00 10:00:00 NEREIDA henri [facility] 2022-06-16 2022-06-16 Office JAYESH WISE 1.2.840.114 [id number] [facility] 07:46:52 10:29:18 Visit DEWAYNE AMBULATOR 350.1.13.21 College Y 0.2.7.2.686 of [id number] [facility] 325 e 2022-06-08 2022-06-08 Rohith [facility] 1.2.840.114 [id number] Univers 00:00:00 00:00:00 Nereida HEALTH 350.1.13.10 it y of [place] 4.2.7.2.686 Frankie as JAVIER?BLEA [phone] [address] OFFICE [facility] 2022-06-08 2022-06-08 [facility] 1.2.840.114 [id number] Univers 00:00:00 00:00:00 Nereida HEALTH 350.1.13.10 it y of [place] 4.2.7.2.686 Frankie as JAVIER?BLEA [id number] [address] OFFICE [facility] 2022-06-03 2022-06-03 [facility] 1.2.840.114 [id number] Univers 00:00:00 00:00:00 Nereida HEALTH 350.1.13.10 it y of [place] 4.2.7.2.686 Frankie as JAVIER?BLEA [phone] [address] OFFICE [facility] 2022-06-03 2022-06-03 [facility] 1.2.840.114 [id number] 74 Univers 00:00:00 00:00:00 Nereida HEALTH 350.1.13.10 it y of [place] 4.2.7.2.686 Frankie as JAVIER?BLEA [id number] [address] OFFICE [facility] 2022-05-17 2022-05-17 Rohith SheriffE[facility] 1.2.840.114 [id number] Univers 00:00:00 00:00:00 Nereida HEALTH 350.1.13.10 it y of [place] 4.2.7.2.686 Frankie as JAVIER?BLEA [phone] [address] OFFICE [facility] 2022-05-11 2022-05-11 Rohith [facility] 1.2.840.114 [id number] Univers 00:00:00 00:00:00 Nereida HEALTH 350.1.13.10 it y of [place] 4.2.7.2.686 Frankie as JAVIER?BLEA [phone] [address] OFFICE [facility] 2022-04-08 2022-04-08 Outpatient Aguilar_M VFP VFP [id number] [facility] 00:00:00 00:00:00 [id number] Family Practic e 2022-04-08 2022-04-08 [facility] 1.2.840.114 [id number] 57 Univers 00:00:00 00:00:00 [place] [facility] 350.1.13.10 it y of [place] 4.2.7.2.686 Frankie as JAVIER?BLEA [phone] [address] 2022-03-31 2022-03-31 [facility] 1.2.840.114 [id number] Univers 00:00:00 00:00:00 [facility] 350.1.13.10 it y of [place] 4.2.7.2.686 Frankie as JAVIER?BLEA [phone] [address] 2022-03-18 2022-03-18 Outpatient [facility] [id number] Univers 09:30:00 09:45:06 NEREIDA ithenri [facility] 2022-03-18 2022-03-18 Office [facility] 1.2.840.114 [id number] Univers 09:30:00 09:45:00 Visit [facility] 350.1.13.10 it y of [place] 4.2.7.2.686 Frankie as JAVIER?BLEA [phone] [address] 2022-03-18 2022-03-18 Outpatient Marsha [facility] [id number] Univers 09:30:00 09:30:00 [facility] 2022 2022 [facility] 1.2.840.114 [id number] 53 Univers 00:00:00 00:00:00 Nereida HEALTH 350.1.13.10 it y of [place] 4.2.7.2.686 Frankie as JAVIER?BLEA [phone] [facility] JAMILA[address] OFFICE [facility] 2022-03-13 2022-03-13 [facility] 1.2.840.114 [id number] 69 Univers 00:00:00 00:00:00 Enreida HEALTH 350.1.13.10 it y of [place] 4.2.7.2.686 Frankie as JAVIER?BLEA [id number] [address] OFFICE [facility] 2022-03-11 2022-03-11 [facility] 1.2.840.114 [id number] Univers 00:00:00 00:00:00 Nereida HEALTH 350.1.13.10 it y of [place] 4.2.7.2.686 Frankie as JAVIER?BLEA [id number] [address] OFFICE [facility] 2022-03-09 2022-03-09 [facility] 1.2.840.114 [id number] Univers 00:00:00 00:00:00 Nereida HEALTH 350.1.13.10 it y of [place] 4.2.7.2.686 Frankie as JAVIER?BLEA [id number] [address] OFFICE [facility] 2022-03-05 2022-03-05 [facility] 1.2.840.114 [id number] Univers 00:00:00 00:00:00 Nereida HEALTH 350.1.13.10 it y of [place] 4.2.7.2.686 Frankie as JAVIER?BLEA [id number] [address] OFFICE [facility] 2022-03-02 2022-03-02 [facility] 1.2.840.114 [id number] Univers 00:00:00 00:00:00 Nereida HEALTH 350.1.13.10 it y of [place] 4.2.7.2.686 Frankie as JAVIER?BLEA [id number] [address] OFFICE [facility] 2022-03-02 2022-03-02 [facility] 1.2.840.114 [id number] Univers 00:00:00 00:00:00 Nereida HEALTH 350.1.13.10 it y of [place] 4.2.7.2.686 Frankie as JAVIER?BLEA [phone] Nh mary GOEL [address] [place] [address] 2022-02-05 2022-02-05 Telephone [facility] 1.2.997.380 [id number] Univers 00:00:00 00:00:00 Nereida HEALTH 350.1.13.10 it y of [place] 4.2.7.2.686 Frankie as JAVIER?BLEA [phone] Nh mary GOEL [address] [place] [address] 2022-01-30 2022-01-30 [facility] 1.2.840.114 [id number] Univers 00:00:00 00:00:00 [facility] 350.1.13.10 it [facility] 4.2.7.2.686 Frankie as PROFESSIO [phone] Nh mary PINA [address] [place] [address] ONE 2022-01-25 2022-01-25 Emergency X [facility] ERT [id number] Univers 12:57:00 16:23:00 JACQUELIN pierre [facility] 2022-01-25 2022-01-25 Emergency [facility] 1.2.072.301 [id number] Univers 12:57:00 16:23:00 Jacquelin Alvarado [place] 350.1.13.10 ity of [place] 4.2.7.2.686 [place] [facility] [id number] [address] 2022-01-22 2022-01-22 Outpatient Aguilar_M VFP VFP [id number] 45-20 Village 08:43:00 08:43:00 [id number] Family Practic e 2022-01-14 2022-01-14 [facility] 1.2.840.114 [id number] Univers 00:00:00 00:00:00 [facility] 350.1.13.10 it y of [place] 4.2.7.2.686 Frankie as PROFESSIO [phone] Nh dical NAL [address] OFFICE [facility] ONE 2022-01-09 2022-01-[address] [facility] [id number] [facility] 15:12:14 15:12:14 DEWAYNE Colleg e [employer] Medicin e 2022-01-09 2022-01-[address] [facility] [id number] [facility] 15:10:12 15:10:12 DEWAYNE [employer] e [employer] Medicin e 2022-01-09 2022-01-09 Outpatient MASON, [facility] Surgery [id number] [facility] 07:39:00 14:08:00 DEWAYNE 2022-01-09 2022-01-09 [facility] [id number] 07:39:00 14:08:00 Encounter [facility] 2022-01-09 2022-01-09 Anesthesia Adam Sierra [facility] [id number] 11:08:00 12:56:00 Event India Keating [facility] 2022-01-09 2022-01-09 Surgery [facility] [id number] 11:30:00 12:50:00 [facility] 2022-01-09 2022-01-09 Travel [facility] [id number] [facility] 00:00:00 00:00:00 [facility] 2022-01-08 2022-01-08 Outpatient [facility] SLE [id number] SLE 12:18:15 23:59:00 2022-01-08 2022-01-08 [facility] [id number] 11:55:00 23:59:00 Encounter [facility] 2022-01-08 2022-01-08 Travel [facility] [id number] [facility] 00:00:00 00:00:00 [facility] 2021-12-18 2021-12-18 Office ALIYA Calero 1.2.840.114 [id number] Univers 15:45:00 16:15:00 Visit [facility] 350.1.13.10 it y of [place] 4.2.7.2.686 Frankie as JAVIER?BLEA [id number] Nh maujessica GOEL [address] MEDICAL OFFICE BUILDING 2021-12-18 2021-12-18 Outpatient Marsha CALERO [facility] [id number] Univers 15:45:00 15:45:00 [facility] 2021-12-18 2021-12-18 Outpatient Marsha CALERO [facility] [id number] Univers 15:45:00 15:45:00 [facility] 2021-12-16 2021-12-16 Outpatient [facility] [id number] Univers 16:00:00 16:00:00 [facility] 2021-12-16 2021-12-16 Orders Doctor OLGA 1.2.840.114 [id number] Univers 00:00:00 00:00:00 Only Unassigned, STEVE 350.1.13.10 ity of [place] [facility] 4.2.7.2.686 Frankie as [phone] [address] 2021-12-15 2021-12-15 Rohith Sheriff[facility] 1.2.840.114 [id number] Univers 00:00:00 00:00:00 [facility] 350.1.13.10 it y of [place] 4.2.7.2.686 Frankie as PROFESSIO [id number] Nh mary PINA [address] OFFICE [facility] ONE 2021-12-08 2021-12-08 Rohith [facility] 1.2.840.114 [id number] Univers 00:00:00 00:00:00 [facility] 350.1.13.10 it y of [place] 4.2.7.2.686 Frankie as JAVIER?BLEA [id number] Nh maujessica JAMILAALEXIS [address] MEDICAL OFFICE [facility] 2021-12-04 2021-12-04 [facility] [id number] [facility] 08:54:00 10:51:00 Encounter Dewayne [facility] 2021-12-04 2021-12-04 Outpatient MASON, SLE Surgery [id number] SLE 08:54:00 10:51:00 DEWAYNE 2021-12-04 2021-12-04 Surgery Mason [facility] [id number] [facility] 09:00:00 10:30:00 Dewayne Jaden [facility] 2021-11-19 2021-11-19 ALIYA Siu 1.2.043.010 [id number] Univers 00:00:00 00:00:00 [employer] 350.1.13.10 it y of [place] 4.2.7.2.686 Frankie as JAVIER?BLEA [phone] [address] OFFICE BUILDING 2021-11-15 2021-11-15 Rohtih Sheriff TNDERREK 1.2.840.114 [id number] Univers 00:00:00 00:00:00 [facility] 350.1.13.10 it y of [place] 4.2.7.2.686 Frankie as PROFESSIO [id number] [address] OFFICE BUILDING ONE 2021-11-06 2021-11-[address] [facility] 1.2.840.114 [id number] [facility] 13:24:51 16:22:30 Visit DEWAYNE AMBULATOR 350.1.13.21 College Y 0.2.7.2.686 of [id number] [facility] patsy 325 e 2021-11-06 2021-11-06 Rohith Sheriff TNDERREK 1.2.840.114 [id number] Univers 00:00:00 00:00:00 [facility] 350.1.13.10 it y of [place] 4.2.7.2.686 Frankie as JAVIER?BLEA [phone] [address] OFFICE BUILDING 2021-11-01 2021-11-01 Outpatient Eri VFP VFP [id number] [place] [address] 02:58:00 02:58:00 [id number] Family Practic e 2021-10-27 2021-10-27 Rohith Sheriff TNDERREK 1.2.840.114 [id number] 76 Univers 00:00:00 00:00:00 [facility] 350.1.13.10 it y of [place] 4.2.7.2.686 Frankie as PROFESSIO [id number] Nh dical NAL 044 [facility] ONE 2021-10-16 2021-10-16 Refmaddie SheriffE[facility] 1.2.840.114 [id number] Univers 00:00:00 00:00:00 [facility] 350.1.13.10 it y of [place] 4.2.7.2.686 Frankie as PROFESSIO [phone] Nh dical NAL 044 [facility] ONE 2021-10-11 2021-10-11 Outpatient Aguilar_M VFP VFP [id number] [facility] 06:17:00 06:17:00 [id number] Family Practic e 2021-10-07 2021-10-07 Refill [facility] 1.2.840.114 [id number] 32 Univers 00:00:00 00:00:00 [facility] 350.1.13.10 it y of [place] 4.2.7.2.686 Frankie as JAVIER?BLEA [phone] Nh dical KNEY 044 [facility] 2021-10-03 2021-10-03 Outpatient Aguilar_M VFP VFP [id number] 4520 [place] 05:34:00 05:34:00 [id number] Family [facility] e 2021-09-29 2021-09-29 Refill [facility] 1.2.559.440 [id number] Univers 00:00:00 00:00:00 [facility] 350.1.13.10 it y of SURGICAL 4.2.7.2.686 Frankie as SPECIALTI [phone] Nh dical ES 198 [facility] 2021-09-18 2021-09-18 Outpatient R JAZIEL [facility] [id number] Univers 10:15:00 10:15:00 NEREIDA ignacio [facility] 2021-09-18 2021-09-18 Office [facility] 1.2.840.114 [id number] Univers 08:40:07 08:55:07 Visit [facility] 350.1.13.10 it y of [place] 4.2.7.2.686 Frankie as JAVIER?BLEA [phone] [address] MEDICAL OFFICE [facility] 2021-09-18 2021-09-18 Outpatient R JAZIEL [facility] [id number] Univers 10:15:00 08:52:38 NEREIDA henri [facility] 2021-09-08 2021-09-08 Rohith [facility] 1.2.840.114 [id number] Univers 00:00:00 00:00:00 [facility] 350.1.13.10 it y of [place] 4.2.7.2.686 Frankie as JAVIER?BLEA [phone] [address] OFFICE [facility] 2021-09-04 2021-09-04 [facility] 1.2.840.114 [id number] Univers 00:00:00 00:00:00 [place] [facility] 350.1.13.10 it y of [place] 4.2.7.2.686 Frankie as PROFESSIO [id number] [address] OFFICE [facility] ONE 2021-08-28 2021-08-28 [facility] 1.2.840.114 [id number] Univers 00:00:00 00:00:00 [facility] 350.1.13.10 it y of [place] 4.2.7.2.686 Frankie as PROFESSIO [phone] [address] ONE 2021-08-22 2021-08-22 [facility] 1.2.840.114 [id number] 73 Univers 00:00:00 00:00:00 [facility] 350.1.13.10 it y of [place] 4.2.7.2.686 Frankie as Professio [phone] [address] Office [facility] One 2021-08-21 2021-08-21 Yousuf Acosta_Napoleon [facility] [place] - [id number]- [id number] [facility] 00:00:00 00:00:[address] [facility] [id number] Nery Obrien - Pract brando GRIFFIN: [address] [place] [address] , Ph. 2021-08-20 2021-08-20 Outpatient Alvarez_R VFP [facility] [id number] [facility] 04:30:00 04:30:00 [id number] Family Practic e 2021-08-20 2021-08-20 Telephone Jaziel [facility] [id number] Univers 00:00:00 00:00:00 [facility] [id number] [facility] [place] [id number] Frankie as Javier?Blea [phone] Nh dicjessica alvarez 044 [facility] Office [facility] 2021-08-07 2021-08-07 [facility] 1.2.840.114 [id number] Univers 00:00:00 00:00:00 [facility] [id number] [facility] [place] [id number] Frankie as Javier?Blea [phone] Nh dicjessica goel [address] [place] [address] Office [facility] 2021-07-14 2021-07-14 [facility] 1.2.840.114 [id number] Univers 00:00:00 00:00:00 [facility] [id number] [facility] [place] [id number] Frankie as Javier?Blea [phone] Nh mary goel 044 [facility] 2021-07-11 2021-07-11 Imm/Inj Nurse, Adc Pob Immunization [facility] 1.2.840.114 [id number] Univers 10:44:02 10:44:14 Visit Miguel Patel 350.1.13 .10 ity [place] [id number] Profess[place] [phone] [facility] [address] [facility] 2021-07-11 2021-07-11 Outpatient R IRAIS [facility] [id number] Univers 10:30:00 10:30:00 MIGUEL pierre [facility] 2021-07-10 2021-07-10 [facility] 1.2.840.114 [id number] Univers 00:00:00 00:00:00 [facility] [id number] it y [place] [id number] Frankie as Javier?Blea [phone] Nh mary goel [address] [place] [address] Office Building 2021-06-29 2021-06-29 Rohith [facility] 1.2.840.114 [id number] Univers 00:00:00 00:00:00 [facility] [id number] [facility] [place] [id number] Frankie as Professio [phone] Nh mary pina [facility] Office Building One 2021-06-24 2021-06-24 Andimaddie [facility] 1.2.840.114 [id number] Univers 00:00:00 00:00:00 [facility] 350.1.13.10 it y of [place] 4.2.7.2.686 Frankie as Professio [phone] Nh dicjessica pina [address] [place] [address] Office Building One 2021-06-10 2021-06-10 Rohith [facility] 1.2.840.114 [id number] Univers 00:00:00 00:00:00 [facility] 350.1.13.10 it y of [place] 4.2.7.2.686 Frankie as Professio [phone] Nh dical nal [address] [place] [address] Office Building One 2021-06-09 2021-06-09 Rohith [facility] 1.2.840.114 [id number] Univers 00:00:00 00:00:00 [facility] 350.1.13.10 it y of [place] 4.2.7.2.686 Frankie as Professio [phone] Nh dical tisha [facility] Office Building One 2021-06-09 2021-06-09 Rohith [facility] 1.2.840.114 [id number] Univers 00:00:00 00:00:00 [facility] 350.1.13.10 it y of [place] 4.2.7.2.686 Frankie as Professio [phone] Nh dicfl nal [address] [place] [address] Office Building One 2021-06-01 2021-06-01 Rohith [facility] 1.2.840.114 [id number] Univers 00:00:00 00:00:00 [facility] 350.1.13.10 it y of [place] 4.2.7.2.686 Frankie as Professio [phone] [address] One 2021-05-15 2021-05-15 Patient [facility] 1.2.840.114 [id number] Univers 00:00:00 00:00:00 Outreach Jaimee Alejandre [facility] 350.1.13.10 i ty of [place] 4.2.7.2.686 Frankie as Professio [phone] [address] One 2021-05-14 2021-05-14 Nurse Cbc, Medicare Wellness Ang Fam UTM B 1.2.840.114 [id number] Univers 09:04:42 10:32:18 Visit Nereida Sheriff [facility] 350.1.13.10 ity of [place] 4.2.7.2.686 Frankie as Professio [phone] [address] Office [facility] One 2021-05-14 2021-05-14 Office [facility] 1.2.840.114 [id number] Univers 08:58:25 09:13:25 [facility] 350.1.13.10 it y of [place] 4.2.7.2.686 Frankie as Professio [phone] [address] One 2021-05-14 2021-05-14 Outpatient R JAZIEL [facility] [id number] Univers 09:00:00 09:00:00 NEREIDA ithenri of [facility] 2021-05-12 2021-05-12 Refmaddie SheriffE[facility] 1.2.840.114 [id number] Univers 00:00:00 00:00:00 [facility] 350.1.13.10 it y of [place] 4.2.7.2.686 Frankie as Professio [phone] [address] Office [facility] One 2021-04-30 2021-04-30 Outpatient Marsha JOYCE [facility] [id number] Univers 13:15:00 13:15:00 DUSTIN pierre [facility] 2021-04-23 2021-04-23 Outpatient R SHERIFF [facility] [id number] Univers 00:00:00 00:00:00 NEREIDA pierre [facility] 2021-04-14 2021-04-14 Rohith [facility] 1.2.840.114 [id number] Univers 00:00:00 00:00:00 [facility] 350.1.13.10 it y of [place] 4.2.7.2.686 Frankie as Professio [phone] [address] Office Building One 2021-04-03 2021-04-03 Hammad Chaney 1.2.840.114 [id number] Univers 00:00:00 00:00:00 Management , Mary Draper 350.1.13.10 ity of [place]2.7.2.[place] [phone] [address] 2021-03-26 2021-03-26 Rohith [facility] 1.2.840.114 [id number] 00:00:00 00:00:00 [facility] 350.1.13.10 [place] 4.2.7.2.686 Professio [phone] [place] [address] Office Building One 2021-03-26 2021-03-26 Rohith SheriffE[facility] 1.2.840.114 [id number] Univers 00:00:00 00:00:00 [facility] 350.1.13.10 it y of [place] 4.2.7.2.686 Frankie as Professio [phone] [address] Office Building One 2021-03-25 2021-03-25 Rohith [facility] 1.2.840.114 [id number] 00:00:00 00:00:00 [facility] 350.1.13.10 [place] 4.2.7.2.686 Professio [phone] [place] [address] Office Building One 2021-03-25 2021-03-25 Rohith SheriffE[facility] 1.2.840.114 [id number] Univers 00:00:00 00:00:00 [facility] 350.1.13.10 it y of [place] 4.2.7.2.686 Frankie as Professio [phone] [address] One 2021-03-18 2021-03-18 Gala SheriffE[facility] 1.2.538.112 [id number] 00:00:00 00:00:00 Nereiad Lee 350.1.13.10 [place] 4.2.7.2.686 Professio [phone] [address] 2021-03-18 2021-03-18 Gala SheriffE[facility] 1.2.765.348 [id number] Univers 00:00:00 00:00:00 Nereida Lee 350.1.13.10 i ty of [place].2.[place] Profess[place] [phone] [address] 2021-03-13 2021-03-13 Gala [facility] 1.2.995.910 [id number] 00:00:00 00:00:00 [facility] 350.1.13.10 [place] 4.2.7.2.686 Professio [phone] [address] One 2021-03-13 2021-03-13 Gala SheriffE[facility] 1.2.937.349 [id number] [facility] 00:00:00 00:00:00 [facility] 350.1.13.10 it y of [place] 4.2.7.2.686 Frankie as Professio [phone] [address] Office [facility] One 2021-03-10 2021-03-10 Outpatient Marsha BRAND [facility] [id number] Univers 12:00:00 12:00:00 AMANDA pierre of [facility] 2021-03-10 2021-03-10 Urgent Provider, [facility] 1.2.840.114 [id number] Univers 11:16:36 11:36:36 Amanda Montes De Oca 350.1.13.10 ity of [place] 4.2.7.2.686 Frankie as Professio [phone] [address] Office [facility] One 2021-03-10 2021-03-10 Refill SheriffE[facility] 1.2.840.114 [id number] Univers 00:00:00 00:00:00 [facility] 350.1.13.10 it y of [place] 4.2.7.2.686 Frankie as Professio [phone] [address] Office [facility] One 2021-02-25 2021-02-25 Telephone Sheriff, [facility] 1.2.417.425 [id number] Univers 00:00:00 00:00:00 [facility] 350.1.13.10 it y of [place] 4.2.7.2.686 Frankie as Professio [phone] [address] One 2021-02-20 2021-02-20 Refill SheriffE[facility] 1.2.840.114 [id number] Univers 00:00:00 00:00:00 [facility] 350.1.13.10 it y of [place] 4.2.7.2.686 Frankie as Professio [phone] [address] Office [facility] One 2021-02-12 2021-02-12 Office SheriffE[facility] 1.2.840.114 [id number] Univers 09:00:39 09:22:35 Visit [facility] 350.1.13.10 it y of [place] 4.2.7.2.686 Frankie as Professio [phone] [address] Office [facility] One 2021-02-12 2021-02-12 Outpatient R AJZIEL [facility] [id number] Univers 09:00:00 09:00:00 NEREIDA ity of [facility] 2021-02-12 2021-02-12 Orders Doctor OLGA 1.2.840.114 [id number] Univers 00:00:00 00:00:00 Only Unassigned, STEVE 350.1.13.10 ity of [place] [facility] 4.2.7.2.686 Frankie as [phone] [address] 2021-02-10 2021-02-10 Refill [facility] 1.2.840.114 [id number] Univers 00:00:00 00:00:00 [facility] 350.1.13.10 it y of [place] 4.2.7.2.686 Frankie as Professio [phone] Nh dicfl nal [address] [place] [address] One 2021-01-06 2021-01-06 Telephone [facility] 1.2.945.204 [id number] Univers 00:00:00 00:00:00 [facility] 350.1.13.10 it y of [place] 4.2.7.2.686 Frankie as Professio [phone] [address] One 2021-01-06 2021-01-06 [place] [facility] 1.2.350.614 [id number] Univers 00:00:00 00:00:00 [facility] 350.1.13.10 it y of [place] 4.2.7.2.686 Frankie as Professio [phone] [address] One 2021-01-01 2021-01-01 Outpatient Marsha INTERIANO [facility] [id number] Univers 15:20:00 15:20:00 PABLO [facility] 2020-12-31 2020-12-31 Outpatient Marsha INTERIANO [facility] [id number] Univers 15:50:00 15:50:00 PABLO [facility] 2020-12-12 2020-12-12 Rohith [facility] 1.2.840.114 [id number] Univers 00:00:00 00:00:00 [facility] 350.1.13.10 it y of [place] 4.2.7.2.686 Frankie as Professio [phone] [address] One 2020-12-11 2020-12-11 Rohith [facility] 1.2.840.114 [id number] Univers 00:00:00 00:00:00 [facility] 350.1.13.10 it y of [place] 4.2.7.2.686 Frankie as Professio [phone] [facility] nal [address] [place] [address] One 2020-12-03 2020-12-03 Outpatient R JAYDON, [facility] [id number] Univers 15:50:00 15:50:00 PABLO ignacio [facility] 2020-11-13 2020-11-13 Office JaizelE[facility] 1.2.840.114 [id number] Univers 08:46:00 09:20:33 Visit [facility] 350.1.13.10 it y of [place] 4.2.7.2.686 Frankie as Professio [phone] [address] One 2020-11-13 2020-11-13 [facility] [id number] Univers 09:00:00 09:00:00 NEREIDA pierre [facility] 2020-11-11 2020-11-11 Refmaddie SheriffE[facility] 1.2.840.114 [id number] Univers 00:00:00 00:00:00 Nereida [place] 350.1.13.10 i ty of [place] Profess[place] [phone] [address] 2020-10-10 2020-10-10 Telephone [facility] 1.2.384.659 [id number] Univers 00:00:00 00:00:00 [facility] 350.1.13.10 it y of [place] 4.2.7.2.686 Frankie as Professio [phone] [address] 2020-10-10 2020-10-10 Letter [facility] 1.2.840.114 [id number] Univers 00:00:00 00:00:00 (Out) [facility] 350.1.13.10 it y of [place] 4.2.7.2.686 Frankie as Professio [phone] [facility] nal [address] [place] [address] 2020-10-10 2020-10-10 Refill [facility] 1.2.840.114 [id number] Univers 00:00:00 00:00:00 [facility] 350.1.13.10 it y of [place] 4.2.7.2.686 Frankie as Professio [phone] [address] One 2020-10-09 2020-10-09 Rohith SheriffE[facility] 1.2.840.114 [id number] Univers 00:00:00 00:00:00 [facility] 350.1.13.10 it y of [place] 4.2.7.2.686 Frankie as Professio [phone] Nh dical nal [address] [facility] 2020-10-08 2020-10-08 Rohith SheriffE[facility] 1.2.840.114 [id number] Univers 00:00:00 00:00:00 [facility] 350.1.13.10 it y of [place] 4.2.7.2.686 Frankie as Professio [phone] Nh dical nal [address] [place] [address] 2020-10-04 2020-10-04 [facility]patient [facility] [id number] Univers 11:15:00 11:15:00 LUANGreat [facility] 2020-10-04 2020-10-04 Office CoughlinE[facility] 1.2.630.141 [id number] Univers 09:57:57 10:50:32 Visit [facility] 350.1.13.10 it y of [place] 4.2.7.2.686 Frankie as Specialti [phone] Nh dicjack [facility] 198 [facility] 2020-09-11 2020-09-11 [facility] 1.2.840.114 [id number] Univers 00:00:00 00:00:00 [facility] 350.1.13.10 it y of [place] 4.2.7.2.686 Frankie as Professio [phone] Nh dical nal [address] [place] [address] 2020-09-02 2020-09-02 [facility] 1.2.840.114 [id number] Univers 00:00:00 00:00:00 [facility] 350.1.13.10 it y of [place] 4.2.7.2.686 Frankie as Professio [phone] Nh dical nal [address] [facility] 2020-08-26 2020-08-26 Outpatient R FIDE [facility] [id number] Univers 13:30:00 13:30:00 MOE [facility] 2020-08-15 2020-08-15 Office OliverE[facility] 1.2.840.114 [id number] Univers 09:59:04 10:14:04 Visit Germain [facility] 350.1.13.10 it y of Surgical 4.2.7.2.686 Frankie as Specialti [phone] Nh dical es 198 [facility] 2020-08-15 2020-08-15 Outpatient [facility] [id number] Univers 10:00:00 10:00:00 GERMAIN henri [facility] 2020-08-13 2020-08-13 Telephone CedEAST[facility] 1.2.840.114 [id number] Univers 00:00:00 00:00:00 Luan L BizGreet 350.1.13.10 it y of Surgical 4.2.7.2.686 Frankie as Specialti [phone] Nh dical es 198 [facility] 2020-08-12 2020-08-12 Office J[facility] 1.2.840.114 [id number] Univers 09:06:31 09:21:31 Visit [facility] 350.1.13.10 it y of [place] 4.2.7.2.686 Frankie as Professio [phone] Nh dical nal 044 [place] Office [facility] One 2020-08-12 2020-08-12 Outpatient [facility] [id number] Univers 09:00:00 09:00:00 NEREIDA pierre [facility] 2020-08-08 2020-08-08 Office [facility] 1.2.508.236 [id number] Univers 14:52:25 15:06:19 Visit [facility] BizGreet 350.1.13.10 it y of Surgical 4.2.7.2.686 Frankie as Specialti [phone] Nh dical es 198 [facility] 2020-08-08 2020-08-08 Outpatient R [facility] [id number] Univers 15:00:00 15:00:00 LUAN pierre [facility] 2020-08-05 2020-08-[address] [facility] 1.2.033.553 [id number] Univers 15:02:00 17:02:00 Brigida Marsha Lee 350.1.13.10 i ty of [place] [phone] [facility] 084 [place] 2020-08-05 2020-08-05 Orders Doctor OLGA 1.2.840.114 [id number] Univers 00:00:00 00:00:00 Only Unassigned, STEVE 350.1.13.10 ity of [place] [facility] 4.2.7.2.686 Frankie as [phone] [facility] 009 [place] 2020-08-01 2020-08-01 [facility] 1.2.120.933 [id number] Univers 14:43:38 16:10:03 Visit Almita Hannaton 350.1.13.10 i ty of [place] 4.2.7.2.686 [place] [facility] Edessio [phone] [facility] 2020-08-01 2020-08-01 Outpatient [facility] [id number] Univers 14:30:00 14:30:00 ALMITA johnhenri [facility] 2020-07-29 2020-07-29 Refill [facility] 1.2.840.114 [id number] Univers 00:00:00 00:00:00 Nereida [facility] 350.1.13.10 it y of [place] 4.2.7.2.686 Frankie as Professio [phone] [address] One 2020-07-23 2020-07-23 Outpatient [facility] [id number] Univers 14:15:00 14:15:00 ALMITA pierre [facility] 2020-07-23 2020-07-23 Refill [facility] 1.2.840.114 [id number] Univers 00:00:00 00:00:00 Nereida Mir 350.1.13.10 it y of [place] 4.2.7.2.686 Frankie as Professio [phone] [address] One 2020-07-22 2020-07-22 Outpatient [facility] [id number] Univers 10:00:00 10:00:00 KEN lopezhenri [facility] 2020-07-15 2020-07-15 Rohith SheriffE[facility] 1.2.840.114 [id number] Univers 00:00:00 00:00:00 [facility] 350.1.13.10 it y of [place] 4.2.7.2.686 Frankie as Professio [phone] [address] Office [facility] One 2020-06-26 2020-06-26 Rohith SheriffE[facility] 1.2.840.114 [id number] Univers 00:00:00 00:00:00 [facility] 350.1.13.10 it y of [place] 4.2.7.2.686 Frankie as Professio [phone] [address] Office [facility] One 2020-06-25 2020-06-25 Outpatient [facility] [id number] Univers 13:30:00 13:30:00 [facility] 2020-06-12 2020-06-12 Rohith SheriffE[facility] 1.2.840.114 [id number] Univers 00:00:00 00:00:00 [facility] 350.1.13.10 it y of [place] 4.2.7.2.686 Frankie as Professio [phone] [address] One 2020-06-12 2020-06-12 Telephone [facility] 1.2.206.741 [id number] Univers 00:00:00 00:00:00 [facility] 350.1.13.10 it y of [place] 4.2.7.2.686 Frankie as Professio [phone] [address] Office [facility] One 2020-06-11 2020-06-11 Refmaddie SheriffEAST[facility] 1.2.840.114 [id number] Univers 00:00:00 00:00:00 [facility] 350.1.13.10 it y of [place] 4.2.7.2.686 Frankie as Professio [phone] [address] Office [facility] One 2020-06-05 2020-06-05 Refmaddie SheriffEAST[facility] 1.2.840.114 [id number] Univers 00:00:00 00:00:00 [facility] 350.1.13.10 it y of [place] 4.2.7.2.686 Frankie as Professio [phone] [facility] nal 044 [facility] One 2020-05-28 2020-05-28 Telephone Jaziel [facility] 1.2.502.833 [id number] Univers 00:00:00 00:00:00 Nereida Lee 350.1.13.10 i ty of [place].2.[place] Profess[place] [phone] Nh dical nal 044 [facility] 2020-05-13 2020-05-13 Joiner Royal, Ad[facility] Lab Main [facility] 1.2.8 40.114 [id number] Univers 14:52:09 15:07:09 Visit Nereida Sheriff 350..13.10 ity of [place] 4.2.7.2.[place] Profess[place] [phone] [facility] 353 [facility] 2020-05-13 2020-05-13 Outpatient R JAZIEL [facility] [id number] Univers 14:30:00 14:30:00 NEREIDA pierre [facility] 2020-05-13 2020-05-13 Office [facility] 1.2.840.114 [id number] Univers 13:57:32 14:12:32 Visit Nereida Lee 350.1.13.10 i ty of [place] 4[place]2.7.2.[place] Profess[place] [phone] Nh dicfl nal [address] [place] [address] 2020-05-09 2020-05-09 Refill [facility] 1.2.840.114 [id number] Univers 00:00:00 00:00:00 Nereida [facility] 350.1.13.10 it y of [place] 4.2.7.2.686 Frankie as Professio [phone] [facility] nal [address] [place] [address] 2020-04-10 2020-04-10 Refmaddie SheriffEAST[facility] 1.2.840.114 [id number] Univers 00:00:00 00:00:00 [facility] 350.1.13.10 it y of [place] 4.2.7.2.686 Frankie as Professio [phone] [facility] [address] [facility] 2020-03-13 2020-03-13 Telephone Jaziel [facility] 1.2.622.670 [id number] Univers 00:00:00 00:00:00 Nereida Lee 350.1.13.10 i ty of [place] 4.2.7.2.[place] Profess[place] [phone] [address] 2020-03-11 2020-03-11 Refill [facility] 1.2.840.114 [id number] Univers 00:00:00 00:00:00 Nereida [facility] 350.1.13.10 it y of [place] 4.2.7.2.686 Frankie as Professio [phone] [address] 2020-02-20 2020-02-20 Telemcabrera RamirezEASTERN NEW MEXICO [facility] 1.2.840.114 [id number] Univers 08:07:16 16:58:17 ne Visit Travis Lee 350.1.13.10 ity of [place] 4.2.7.2.686 [place] Profess[place] [phone] [facility] [address] [facility] 2020-02-20 2020-02-20 Outpatient R MELI [facility] [id number] Univers 15:00:00 15:00:00 TRAVIS pierre [facility] 2020-02-15 2020-02-15 [facility] [id number] Univers 07:30:00 07:30:00 NEREIDA pierre [facility] 2020-02-15 2020-02-15 Telemedici J[facility]ielE[facility] 1.2.840.114 [id number] Univers 06:51:18 07:06:18 ne Visit Nereida Lee 350.1.13.10 ity of [place] 4.2.7.2.[place] Profess[place] [phone] [address] 2020-02-14 2020-02-14 Outpatient [facility] [id number] Univers 07:00:00 07:00:00 NEREIDA pierre [facility] 2020-02-12 2020-02-12 Refmaddie ShreiffEASTERN NEW MEXICO [facility] 1.2.840.114 [id number] Univers 00:00:00 00:00:00 [facility] 350.1.13.10 it y of [place] 4.2.7.2.686 Frankie as Professio [phone] [address] Office [facility] One 2020-01-11 2020-01-11 Refmaddie SheriffEAST[facility] 1.2.840.114 [id number] Univers 00:00:00 00:00:00 [facility] 350.1.13.10 it y of [place] 4.2.7.2.686 Frankie as Professio [phone] [address] Office [facility] One 2019-12-28 2019-12-28 Office SheriffEASTERN [facility] 1.2.840.114 [id number] Univers 09:22:44 09:56:04 Visit [facility] 350.1.13.10 it y of [place] 4.2.7.2.686 Frankie as Professio [phone] [address] One 2019-12-28 2019-12-28 Outpatient [facility] [id number] Univers 09:30:00 09:30:00 NEREIDA ity of [facility] 2019-12-14 2019-12-14 [facility] SheriffE[facility] 1.2.840.114 [id number] Univers 00:00:00 00:00:00 [facility] 350.1.13.10 it y of [place] 4.2.7.2.686 Frankie as Professio [phone] [address] Office [facility] One 2019-12-11 2019-12-11 Telephone SheriffEAST[facility] 1.2.248.372 [id number] Univers 00:00:00 00:00:00 [facility] 350.1.13.10 it y of [place] 4.2.7.2.686 Frankie as Professio [phone] [address] Office [facility] 2019-12-02 2019-12-02 Refmaddie SheriffEAST[facility] 1.2.840.114 [id number] Univers 00:00:00 00:00:00 [facility] 350.1.13.10 it y of [place] 4.2.7.2.686 Frankie as Professio [phone] [address] Office [facility] 2019-11-15 2019-11-15 Office SheriffEAST[facility] 1.2.840.114 [id number] Univers 06:58:39 07:13:39 Visit [facility] 350.1.13.10 it y of [place] 4.2.7.2.686 Frankie as Professio [phone] [address] Office [facility] 2019-10-27 2019-10-27 Outpatient R JENNIFER [facility] [id number] [facility] 09:55:58 23:59:00 ZACARIAS ity [facility] 2019-07-20 2019-07-20 Refmaddie SheriffEAST[facility] 1.2.840.114 [id number] Univers 00:00:00 00:00:00 [facility] 350.1.13.10 it y of [place] 4.2.7.2.686 Frankie as Professio [phone] [address] Office [facility] 2019-07-04 2019-07-04 Refmaddie SheriffEASTERN [facility] 1.2.840.114 [id number] Univers 00:00:00 00:00:00 [facility] 350.1.13.10 it y of [place] 4.2.7.2.686 Frankie as Professio [phone] [address] Office [facility] 2019-06-28 2019-06-28 Office J[facility]ielE[facility] 1.2.840.114 [id number] Univers 09:34:17 10:06:56 Visit [facility] [id number] [facility] [place] [id number] Frankie as Professio [phone] [address] Office [facility] 2019-06-28 2019-06-28 [facility] [id number] Univers 00:00:00 00:00:00 [facility] [id number] [facility] [place] [id number] Frankie as Professio [id number] [address] Office [facility] 2019-06-21 2019-06-21 Refmaddie Sheriff [facility] [id number] Univers 00:00:00 00:00:00 [facility] [id number] it y frankie [place] [id number] Frankie as Syeda [phone] [facility] [address] Office [facility] 2018-12-09 2018-12-09 Ambulatory nullFlavo MNA [id number] Memoria 20:45:00 20:45:00 Pre-Reg r Neurology 03 l [facility] 2018-12-09 2018-12-09 Ambulatory nullFlavo MNA [id number] Memoria 20:45:00 20:45:00 Pre-Reg r Neurology 03 l [facility] 2018-12-09 2018-12-09 Outpatient MHIE MHIE [id number] Memoria 14:45:00 14:45:00 03 [facility] 2018-12-09 2018-12-09 [facility] [id number] 14:45:00 14:45:00 John Mcmanus 2018-07-26 2018-07-26 Outpatient MHIE MHIE [id number] Memoria 09:00:00 09:00:00 02 [facility] 2018-07-26 2018-07-26 Outpatient MHIE MHIE [id number] Memoria 09:00:00 09:00:00 02 [facility] 2018-04-26 2018-04-26 Outpatient MHIE MHIE [id number] Memoria 08:30:00 08:30:00 01 [facility] 2018-04-26 2018-04-26 Outpatient MHIE MHIE [id number] Memoria 08:30:00 08:30:00 01 [facility] 2018-04-04 2018-04-05 [facility] [id number] Memoria 17:57:00 04:59:00 Surgery r [place] 02 l [facility] 2018-04-04 2018-04-05 [facility] [id number] Memoria 17:57:00 04:59:00 Surgery r [place] 02 [facility] 2018-04-04 2018-04-04 Outpatient Kimberly Ng [facility] [id number] 12:57:00 23:59:00 [place] 2018-03-30 2018-03-30 Outpatient MORRISLORENZO LORENZO [id number] Memoria 13:30:00 13:30:00 00 l [place] 2018-03-30 2018-03-30 Outpatient LETA MORRISLORENZO [id number] Memoria 13:30:00 13:30:00 00 l [place] 2018-03-21 2018-03-22 [facility] [id number] Memoria 19:01:00 04:59:00 Surgery r [place] 01 l [facility] 2018-03-21 2018-03-22 Day [facility] [id number] Memoria 19:01:00 04:59:00 Surgery r [place] 01 l [facility] 2018-03-21 2018-03-21 Outpatient Kimberly Ng [facility] [id number] 14:01:00 23:59:00 [facility] 2015-11-08 2015-11-08 Bedded nullFlavo [facility] [id number] Memoria 18:06:00 21:20:00 Outpatient r [place] 00 l [place] 2015-11-08 2015-11-08 Bedded [facility] [id number] Memoria 18:06:00 21:20:00 Outpatient r [place] 00 l [place] 2015-11-08 2015-11-08 Outpatient Yolanda, MORRISSL SL [id number] 12:06:00 15:20:00 Sheilendra 00 [facility] 2015-10-24 2015-10-25 Outpt Diag nullFlavo [facility] [id number] Memoria 15:50:00 05:59:00 Services r Outpatient 00 l Imaging [place] 2015-10-24 2015-10-25 Outpt Diag nullFlavo [facility] [id number] Memoria 15:50:00 05:59:00 Services r Outpatient 00 l Imaging [place] 2015-10-24 2015-10-24 Outpatient MORRIS GuerreroOIP OIP [id number] 09:50:00 23:59:00 Sheilendra 00 [facility] Results Test Description Test Time [...] a mated CrCl>=30 mL/min ) Ref: Chest 2007; 133 ;141S-1598S [Automated mess age] The system [...] given. Lab Interpretation (test Abnormal code = 51421-9) [facility] Cancer AmeryAnti-Xa [id number] 18:11:00 Test Item Value Reference Range Interpretation Comments Anti-Xa Level (test 1.45 See_Comment H Anti-Xa Level code = 6128) (Heparin assay for Low Molecul ar Weight Heparin) Monitoring Guidelines:Bloo d samples should be obtained 4 hour s post SC injecti on (time of peak level) Therapeutic pea k levels: 0.6 - 1 units/mL ( 1 mg/kg q 12hr an d estimated CrCl>=30 mL/min ) 0.6 - 1 units/m L ( 1 mg/kg q 24h r and estimated CrCl <30 mL/min ) 1 - 2 units/mL (1.5 mg/kg q 24 hr and estimated CrCl>=30 mL/min ) Ref: Chest 2007 ; 133;141S-1598S [Automated message] The system which generated this result transmitted reference range : 0.00 - 0.10 unit/mL. The reference range was not used to interpret this result as normal/abnormal . Hep Type (test code = Enoxaparin 5880) HEATHER (test code = HEATHER) Nurse please coordinate with lab to drawn Anti-Xa level (low molecular weight heparin level) 4 hours after 02/16/23 morning enoxaparin dose is given. Lab Interpretation Abnormal (test code = 64640-1) [facility] Glucose [id number] 17:09:21 Test Item Value Reference Interpretation Comments [...] Capillary code = 9554) Performing Lab (test [facility] [place] code = 06182) [facility] Cli nical Lab, [address] [facility], [facility] [place] [address]; [employer] Operator: Margarita Jacob MD; Waived Point of Care Testing - Gabrielle aaron MD Lab Interpretation Abnormal (test code = 47606-5) [facility] Glucose [id number] 17:09:21 Test Item Value Reference Interpretation Comments [...] Capillary code = 9554) Performing Lab (test [facility] [place] code = 59527) [facility] Cli nical Lab, [address] [facility] [address], [facility] [place] [address]; [employer] Operator: Margarita Jacob MD; Waived Point of Care Testing - Gabrielle aaron MD Lab Interpretation Abnormal (test code = 87914-5) [facility] [id number] 12:26:50 Test Item Value Reference Range Interpretation Comments Phosphorus (test code = 2777-1) 4.3 mg/dL 2.5-4.5 [facility] [id number] 12:26:50 Test Item Value Reference Range Interpretation Comments Phosphorus (test code = 2777-1) 4.3 mg/dL 2.5-4.5 [facility] [id number] 16:10:55 Test Item Value Reference Range Interpretation Comments Final Report (test code = 8488) No growth [facility] [id number] 16:10:55 Test Item Value Reference Range Interpretation Comments Final Report (test code = 8488) No growth [facility]2023-04-14 16:06:17 Test Item Value Reference Range Interpretation Comments Procalcitonin (test 0.38 ng/mL <=0.08 H Procalci tonin > 2.00 code = 04106-5) ng/mL: Proca lcitonin levels above 2. 00 [...] extended diluti on as it exceeds the [employer]'s recommended goldberg it. Caution should be exercised when interpreting agarwal ch values and done in conjunction wit clinical contex t. Lab Interpretation Abnormal (test code = 26303-2) [facility]2023-04-14 16:06:17 Test Item Value Reference Range Interpretation Comments Procalcitonin (test 0.38 ng/mL <=0.08 H Procalci tonin > 2.00 code = 91902-0) ng/mL: Proca lcitonin levels above 2. 00 [...] extended diluti on as it exceeds the [employer]'s recommended goldberg it. Caution should be exercised when interpreting agarwal ch values and done in conjunction [facility] clinical contex t. Lab Interpretation Abnormal (test code = 00156-5) [facility] Add[facility]On Test 2023-02-12 15:17:04 Test Item Value Reference Range Interpretation Comments Ordered (test code = 6568) Test Added Test Needed (test code = 7604) procalcitonin [facility] Add-On Test 2023-02-12 15:17:04 Test Item Value Reference Range Interpretation Comments Ordered (test code = 6568) Test Added Test Needed (test code = 7604) procalcitonin [facility] [id number] 12:16:45 Test Item Value Reference Range Interpretation Comments CK (test code = 2157-6) 125 U/L 26-192 [facility] [id number] 12:16:45 Test Item Value Reference Range Interpretation Comments CK (test code = 2157-6) 125 U/L 26-192 [facility]-1/2 Antigen and Antibodies, Fourth [id number] 07:28:44 Test Item Value Reference Range Interpretation Comments HIV Ag/Ab, NON-REACTIVE NON-REACTIVE HIV-1 antigen a nd 4TH Gen (test HIV-1/HIV-2 an tibodies were code = 78046) notdetected. T here is no laboratory evid ence of HIVinfection. P LEASE NOTE: This informatio n has been disclosed toyou from records whose confident iality may beprotected by state law. If your state requ ires suchprotection, then the state law prohi bits you frommaking any further disclosure of t he informationwith out the specific writte n consent of the personto om it pertains, or as otherwise permitted by maryjo Brice general authorization f or the release of [facility] hospital[facility] information is NOT sufficient for this purpose. For additional information please refer tohttp://educat ion.[employer].Trupanion/faq /VHB755(This link is being p rovided for informational/e ducational purposes only.) The performance of this assay has not been clinicallyvalid ated in patients less t go 2 years old. Lab test p erformed by:Lab Mnemonic : [employer] [facility] [id number] [place] [address]ZYWHU Christelle MELÉNDEZ MD [facility]/2 Antigen and Antibodies, Fourth [id number] 07:28:44 Test Item Value Reference Range Interpretation Comments HIV Ag/Ab, NON-REACTIVE NON-REACTIVE HIV-1 antigen a nd 4TH Gen (test HIV-1/HIV-2 an tibodies were code = 67086) notdetected. T here is no laboratory evid ence of HIVinfection. P LEASE NOTE: This informatio n has been disclosed toyou from records whose confident iality may beprotected by state law. If your state requ ires suchprotection, then the state law prohi bits you frommaking any further disclosure of t he informationwith out the specific writte n consent of the personto wh om it pertains, or as otherwise permitted by maryjo dislaA general authorization f or the release of medi mari orother information is NOT sufficient for this purpose. For additional information please refer tohttp://educat ion.[employer]/faq /EQE209(This link is being p rovided for informational/e ducational purposes only.) The performance of this assay has not been clinicallyvalid ated in patients less t go 2 years old. Lab test p erformed by:Lab Mnemonic : [employer] [facility] [id number] [place] [address]RQSWB Christelle MELÉNDEZ MD [facility] Hospital[facility] [id number] 13:51:10 Test Item Value Reference Range Interpretation Comments Final Report (test code = 10 - 50,000 cfu/ml A 8488) Normal site isabel present.Generally of low significance.Correl ate with clinical data and culture history. Lab Interpretation (test Abnormal code = 94195-8) [facility] [id number] 13:51:10 Test Item Value Reference Range Interpretation Comments Final Report (test code = 10 - 50,000 cfu/ml A 8488) Normal site isabel present.Generally of low significance.Correl ate with clinical data and culture history. Lab Interpretation (test Abnormal code = 19647-7) [facility] HospitalGastrointestinal Multiplex Panel Path [id number] 21:40:55GIMP PRReviewed and Electronically signed by Pathologist:PATRICIA CHAVEZ MD #[id number] [facility]UnTexas [facility] DentonGastrointestinal Multiplex Panel Path Review 2023-02-07 21:40:55GIMP PRReviewed and Electronically signed by Pathologist:PATRICIA CHAVEZ MD #[id number] [facility]UnTexas [facility] DentonClostridium Difficile DNA Path Review 2023-02-07 21:35:15C diff DNA PRReviewed and Electronically signed by Pathologist:PATRICIA CHAVEZ MD #[id number] [facility]UnTexas [facility] DentonClostridium Difficile DNA Path Review 2023-02-07 21:35:15C diff DNA PRReviewed and Electronically signed by Pathologist:PATRICIA CHAVEZ MD #[id number] [facility]ITALUnTexas Health DentonHepatitis B Surface [id number] 17:09:39 Test Item Value Reference Range Interpretation Comments HBsAg. (test code = 5747) Non Reactive Non Reactive [facility] B Surface [id number] 17:09:39 Test Item Value Reference Range Interpretation Comments HBsAg. (test code = 5747) Non Reactive Non Reactive [facility] C Virus [id number] 16:29:30 Test Item Value Reference Range Interpretation Comments HCVAb. (test Non Reactive Non Reactive Antibody detect ion in the code = 5762) immunocompromis ed and immunosuppresse d population may be delayed or absent entirely. There fore serial testing, correl ation with other clinical findings, and supplementa l testing (if available) should be taken into cons ideration when interpreti ng the results. [facility] C Virus [id number] 16:29:30 Test Item Value Reference Range Interpretation Comments HCVAb. (test Non Reactive Non Reactive Antibody detect ion in the code = 5762) immunocompromis ed and immunosuppresse d population may be delayed or absent entirely. There fore serial testing, correl ation with other clinical findings, and supplementa l testing (if available) should be taken into cons ideration when interpreti ng the results. [facility] B Total Ig Core Ab (SCREENING) (anti-HBc total Ig; HBcAb total Ig)2023-02-07 16:29:12 Test Item Value Reference Range Interpretation Comments HBcAb. (test code = 5742) Non Reactive Non Reactive [facility] B Total Ig Core Ab (SCREENING) (anti-HBc total Ig; HBcAb total Ig)2023-02-07 16:29:12 Test Item Value Reference Range Interpretation Comments HBcAb. (test code = 5742) Non Reactive Non Reactive [facility] HospitalClostridium Difficile DNA Assay 2023-02-07 14:32:28 Test Item Value Reference Range Interpretation Comments C difficile DNA (test Negative Negative code = 5134) C difficle Toxin EIA Test Not Performed Negative (test code = 8961) C difficile C. difficile DNA Interpretation (test code detection was = 2626673) negative making C. difficile infection highly unlikely in this patient. EIA not performed. [facility] HospitalClostridium Difficile DNA Assay 2023-02-07 14:32:28 Test Item Value Reference Range Interpretation Comments C difficile DNA (test Negative Negative code = 5134) C difficle Toxin EIA Test Not Performed Negative (test code = 8961) C difficile C. difficile DNA Interpretation (test code detection was = 8857397) negative making C. difficile infection highly unlikely in this patient. EIA not performed. [facility] HospitalGastrointestinal Multiplex Panel 2023-02-07 13:55:28 Test Item Value Reference Range Interpretation Comments Campylobacter (test code = Not Detected Not Detected 49441-8) C difficile DNA (GI Multi Refer to separate Panel) (test code = C. difficile DNA 30851-9) Assay for results Plesiomonas shigelloides Not Detected Not Detected (test code = 86608-2) Salmonella (test code = Not Detected Not Detected 70977-5) Vibrio (test code = Not Detected Not Detected 51773-1) Vibrio cholerae (test code Not Detected Not Detected = 99806-0) Yersinia enterocolitica Not Detected Not Detected (test code = 21206-4) Enteroaggregative E. coli Not Detected Not Detected (EAEC) (test code = 29532-0) Enteropathogenic E. coli Not Detected Not Detected (EPEC) (test code = 70275-0) Enterotoxigenic E. coli Not Detected Not Detected (ETEC) (test code = 39334-2) Shiga-like toxin-producing Not Detected Not Detected E. col (STEC) (test code = 15464-4) E. coli O157 (test code = Not Applicable Not Detected 45073-3) Shigella/Enteroinvasive E. Not Detected Not Detected coli (EIEC) (test code = 35150-7) Cryptosporidium (test code Not Detected Not Detected = 49645-5) Cyclospora cayetanensis Not Detected Not Detected (test code = 81846-7) Entamoeba histolytica Not Detected Not Detected (test code = 91301-1) Giardia lamblia (test code Not Detected Not Detected = 44417-2) Adenovirus F 40/41 (test Not Detected Not Detected code = 71931-9) Astrovirus (test code = Not Detected Not Detected 01305-4) Norovirus GI/GII (test Not Detected Not Detected code = 09790-9) Rotavirus A (test code = Not Detected Not Detected 57482-8) Sapovirus (I, II, IV and Not Detected Not Detected V) (test code = 30319-7) [facility] Cancer AmeryGastrointestinal Multiplex Panel 2023-02-07 13:55:28 Test Item Value Reference Range Interpretation Comments Campylobacter (test code = Not Detected Not Detected 70868-6) C difficile DNA (GI Multi Refer to separate Panel) (test code = C. difficile DNA 63207-9) Assay for results Plesiomonas shigelloides Not Detected Not Detected (test code = 64539-0) Salmonella (test code = Not Detected Not Detected 80028-0) Vibrio (test code = Not Detected Not Detected 13572-9) Vibrio cholerae (test code Not Detected Not Detected = 87236-5) Yersinia enterocolitica Not Detected Not Detected (test code = 27198-2) Enteroaggregative E. coli Not Detected Not Detected (EAEC) (test code = 32939-3) Enteropathogenic E. coli Not Detected Not Detected (EPEC) (test code = 50136-4) Enterotoxigenic E. coli Not Detected Not Detected (ETEC) (test code = 05989-4) Shiga-like toxin-producing Not Detected Not Detected E. col (STEC) (test code = 23658-8) E. coli O157 (test code = Not Applicable Not Detected 11320-4) Shigella/Enteroinvasive E. Not Detected Not Detected coli (EIEC) (test code = 09961-7) Cryptosporidium (test code Not Detected Not Detected = 27282-6) Cyclospora cayetanensis Not Detected Not Detected (test code = 58476-4) Entamoeba histolytica Not Detected Not Detected (test code = 60303-1) Giardia lamblia (test code Not Detected Not Detected = 86873-1) Adenovirus F 40/41 (test Not Detected Not Detected code = 43438-6) Astrovirus (test code = Not Detected Not Detected 56572-7) Norovirus GI/GII (test Not Detected Not Detected code = 90162-6) Rotavirus A (test code = Not Detected Not Detected 94858-1) Sapovirus (I, II, IV and Not Detected Not Detected V) (test code = 77072-2) [facility] HospitalFerritin [id number] 13:31:20 Test Item Value Reference Range Interpretation Comments Ferritin Lvl (test code = 2276-4) 320 ng/mL 13-150 H Lab Interpretation (test code = Abnormal 22313-7) [facility] HospitalFerritin [id number] 13:31:20 Test Item Value Reference Range Interpretation Comments Ferritin Lvl (test code = 2276-4) 320 ng/mL 13-150 H Lab Interpretation (test code = Abnormal 03591-8) [facility] HospitalTransferrin with [id number] 13:25:21 Test Item Value Reference Range Interpretation Comments Transferrin (test code 205 mg/dL 200-360 = 3034-6) TIBC (test code = 287 See_Comment [Automate d message] 2500-7) The system [employer] generated this result transmitted ref erence range: 250 - 45 0 mcg/dL. The ref erence range was not u sed to interpret this result as normal/abnor mal. [facility] HospitalTransferrin with [id number] 13:25:21 Test Item Value Reference Range Interpretation Comments Transferrin (test code 205 mg/dL 200-360 = 3034-6) TIBC (test code = 287 See_Comment [Automate d message] 2500-7) The system [employer] generated this result transmitted ref erence range: 250 - 45 0 mcg/dL. The ref erence range was not u sed to interpret this result as normal/abnor mal. [facility] HospitalIron [id number] 13:25:20 Test Item Value Reference Range Interpretation Comments Iron (test code = 51 See_Comment [Automate d message] The 2498-4) system which ge nerated this result transmit kaylie reference range : 37 - 145 mcg/dL. The ref erence range was not used to interpret this result as normal/abnormal . [facility] HospitalIron [id number] 13:25:20 Test Item Value Reference Range Interpretation Comments Iron (test code = 51 See_Comment [Automate d message] The 2498-4) system which ge nerated this result transmit kaylie reference range : 37 - 145 mcg/dL. The ref erence range was not used to interpret this result as normal/abnormal . [facility] HospitalLipid [id number] 13:23:33 Test Item Value Reference Range Interpretation Comments Chol (test code = 137 mg/dL <=199 ATP III Cl assification 2092-12) of Total Choles terol Primary Target of Therapy (in mg/dL):<200 Haxndxmpa041-95 9 Borderline high >=240 High Trig (test code = 184 mg/dL <=149 H ATP III Cl assification 1-8) of Serum Trigly cerides Primary Target of Therapy (in mg/dL):<150 Chfzbf701-333 Borderline high 200-499 High>=500 Very highNon-fasting triglycerides > 200 mg/dL may be fo llowed up with a fasti ng Lipid Panel. Calculated LDL- C may be falsely decr eased when non-fastin g triglycerides > 200 mg/dL. HDL (test code = 27 mg/dL >=40 L 2085-07) LDL (test code = 73 mg/dL <=100 ATP III Cla ssification 51702-8) of LDL Choleste rol Primary Target of Therapy (in mg/dL):<100 Sgkpbzk316-422 Near optimal/above oamtnmr009-041 Borderline high 160-189 High>=190 Very high VLDL (test code = 37 mg/dL 47383-2) Lab Interpretation Abnormal (test code = 94001-8) [facility] HospitalLipid [id number] 13:23:33 Test Item Value Reference Range Interpretation Comments Chol (test code = 137 mg/dL <=199 ATP III Cl assification 2092-12) of Total Choles terol Primary Target of Therapy (in mg/dL):<200 Ecdzothkf683-64 9 Borderline high >=240 High Trig (test code = 184 mg/dL <=149 H ATP III Cl assification 2571-8) of Serum Trigly cerides Primary Target of Therapy (in mg/dL):<150 Elxbqf075-120 Borderline high 200-499 High>=500 Very highNon-fasting triglycerides > 200 mg/dL may be fo llowed up with a fasti ng Lipid Panel. Calculated LDL- C may be falsely decr eased when non-fastin g triglycerides > 200 mg/dL. HDL (test code = 27 mg/dL >=40 L 2085-9) LDL (test code = 73 mg/dL <=100 ATP III Cla ssification 50729-7) of LDL Choleste rol Primary Target of Therapy (in mg/dL):<100 Twaqvtf684-947 Near optimal/above vkenuyq881-693 Borderline high 160-189 High>=190 Very high VLDL (test code = 37 mg/dL 96887-6) Lab Interpretation Abnormal (test code = 24983-3) [facility] HospitalHemoglobin [id number] 12:22:20 Test Item Value Reference Range Interpretation Comments A1C (test code = 4548-4) 10.2 % 4.3-5.6 H HbA 1c values >=6.5% are diagnostic of diabetes mellitus.Diagno sis should be confi rmed by repeat testing.Therape utic Action suggeste d: >8.0% HbA1c; Go al oftherapy: <7.0 % HbA1c Lab Interpretation (test Abnormal code = 06956-6) [facility] HospitalHemoglobin [id number] 12:22:20 Test Item Value Reference Range Interpretation Comments A1C (test code = 4548-4) 10.2 % 4.3-5.6 H HbA 1c values >=6.5% are diagnostic of diabetes mellitus.Diagno sis should be confi rmed by repeat testing.Therape utic Action suggeste d: >8.0% HbA1c; Go al oftherapy: <7.0 % HbA1c Lab Interpretation (test Abnormal code = 45883-8) [facility] HospitalCRP2023-04-08 17:26:26 Test Item Value Reference Range Interpretation Comments CRP (test code = 65.62 mg/[place] [address]-0) CRP assay are a s follows: Reference range s when used to assess cardi ac risk: <1.00 mg/L Low cardiovascular risk 1.00-3.00 mg/L Average cardiovascular risk >3.00 mg/L High cardi ovascular risk.Reference ranges when used to assess inflammatory re sponses: Less than or eq ual to 10.00 mg/L. [facility]CRP2023-04-[facility] 17:26:26 Test Item Value Reference Range Interpretation Comments CRP (test code = 65.62 mg/[place] [address]-1) CRP assay are a s follows: Reference range s when used to assess cardi ac risk: <1.00 mg/L Low cardiovascular risk 1.00-3.00 mg/L Average cardiovascular risk >3.00 mg/L High cardi ovascular risk.Reference ranges when used to assess inflammatory re sponses: Less than or eq ual to 10.00 mg/L. [facility] HospitalNT-Pro BNP (In-House)2023-02-06 17:14:43 Test Item Value Reference Range Interpretation Comments NT ProBNP (test code = 40703-9) 83 pg/mL <=125 [facility] (In-House)2023-02-06 17:14:43 Test Item Value Reference Range Interpretation Comments NT ProBNP (test code = 16117-5) 83 pg/mL <=125 [facility] HospitalTroponin T (In-House)2023-02-06 06:39:52 Test Item Value Reference Range Interpretation Comments Troponin T (test code 10 ng/L <=19 < 19 n g/L Suggest retest = 40304-0) at 3 to 6 hours later to rule out myocar dial infarction >= 1 9 to <=52 ng/L Possible m yocardial injury. Suggest retest at 3 hours. - a ch pinky of < 20 ng/L, retest at 6 hours - a castellanos ge of >= 20 ng/L, sugges tive of myocardial infa rction > 52 ng/L Suggest rosales of myocardial infa rction Critical value will be reported when c Tomer is > 52 ng/L and onl y reported for the first i n a series. Hemolyz ed specimens with Hemolysis Index >100 (100 mg/dl or moderate hemoly sis) may cause interfere nces and falsely low res ults. [facility] HospitalTroponin T (In-House)2023-02-06 06:39:52 Test Item Value Reference Range Interpretation Comments Troponin T (test code 10 ng/L <=19 < 19 n g/L Suggest retest = 17330-6) at 3 to 6 hours later to rule out myocar dial infarction >= 1 9 to <=52 ng/L Possible m yocardial injury. Suggest retest at 3 hours. - a c hange of < 20 ng/L, retest at 6 hours - a goff e of >= 20 ng/L, suggestiv e of myocardial infa rction > 52 ng/L [place] tive of myocardial infa rction Critical value will be reported when c Tomer is > 52 ng/L and onl y reported for the first i n a series. Hemolyz ed specimens with Hemolysis Index >100 (100 mg/dl or moderate hemoly sis) may cause interfere nces and falsely low res ults. [facility] 05:50:41 Test Item Value Reference Range Interpretation Comments UA Color (test code = [place] Straw-Yellow A 36028-0) UA Appear (test code = Cloudy Clear A 90265-6) UA Glucose (test code 500 mg/dL NEG [...] = NOT SEEN See_Comment Some rep orting 42731-8) parameters with in the Urinalysis test have changed due to the implementation of new instrumentation in the Main [place], al lowing greater sensiti vity of measurement. Urinalysis resu lts reported by the [facility] using existing instrumentation , as well as Urinaly sis testing perform ed manually or by backup methodology at the [facility] remain relative ly unchanged. New reporting asha eters and units will not be reported for fl l campuses. [Auto mated message] The sy stem which generated this result transmit kaylie reference range : 0 - 2 /HPF. The refer ence range was not u sed to interpret this result as normal/abnor mal. UA RBC (test code = 13 See_Comment H [Automa kaylie message] 78483-9) The system [employer] generated this result transmitted ref erence range: 0 - 2 /H PF. The reference range was not used to int erpret this result as normal/abnormal . UA Mucous (test code = NOT SEEN Not Seen-Trace 02940-4) /HPF UA Bacteria (test code NOT SEEN NOT SEEN /HPF = 01818-3) UA Squam Epi (test OCC None-Occasional code = 79505-6) /HPF Lab Interpretation Abnormal (test code = 44719-6) [facility] 2023-02-06 05:50:41 Test Item Value Reference Range Interpretation Comments UA Color (test code = [place] Straw-Yellow A 57228-7) UA Appear (test code = Cloudy Clear A 40941-2) UA Glucose (test code 500 mg/dL NEG [...] = NOT SEEN See_Comment Some rep orting 56274-3) parameters with in the Urinalysis test have changed due to the implementation of new instrumentation in the [facility], [facility] greater sensiti vity of measurement. Urinalysis resu lts reported by the [facility] using existing instrumentation , as well as Urinaly sis testing perform ed manually or by backup methodology at the [facility] chino l remain relative ly unchanged. [...] = 13 See_Comment H [Automa kaylie message] 67427-8) The system [employer] generated this result transmitted ref erence range: 0 - 2 /H PF. The reference range was not used to int erpret this result as normal/abnormal . UA Mucous (test code = NOT SEEN Not Seen-Trace 00727-0) /HPF UA Bacteria (test code NOT SEEN NOT SEEN /HPF = 88996-5) UA Squam Epi (test OCC None-Occasional code = 68123-5) /HPF Lab Interpretation Abnormal (test code = 17508-5) [facility]:32:47 Test Item Value Reference Range Interpretation Comments aPTT (test code = 28.5 See_Comment [Automate d message] The 48655-5) system which ge nerated this result transmit kaylie reference range : 22.8 - 34.2 second(s). The reference range was not used to interpr et this result as diane l/abnormal. [facility] 02:32:47 Test Item Value Reference Range Interpretation Comments aPTT (test code = 28.5 See_Comment [Automate d message] The 81527-9) system which ge nerated this result transmit kaylie reference range : 22.8 - 34.2 second(s). The reference range was not used to interpr et this result as diane l/abnormal. [facility] HospitalProthrombin Time with [id number] 02:32:46 Test Item Value Reference Range Interpretation Comments PT (test code = 5902-2) 14.7 See_Comment H [Au tomated message] The system [employer] generated this result transmitted ref erence range: 11.9 - 1 4.1 second(s). The reference range was not used to int erpret this result as normal/abnormal . INR (test code = 6301-6) 1.16 0.89-1.10 H Lab Interpretation (test Abnormal code = 13675-1) [facility] Time with [id number] 02:32:46 Test Item Value Reference Range Interpretation Comments PT (test code = 5902-2) 14.7 See_Comment H [Au tomated message] The system [employer] generated this result transmitted ref erence range: 11.9 - 1 4.1 second(s). The reference range was not used to int erpret this result as normal/abnormal . INR (test code = 6301-6) 1.16 0.89-1.10 H Lab Interpretation (test Abnormal code = 28526-1) [facility] [id number] 02:32:45 Test Item Value Reference Range Interpretation Comments D-Dimer (test code = 3.04 See_Comment H [place] [address]-5) exclusion of ve nous thromboembolism is <0.51 mcg/mL FEUs (fi brinogen equivalent unit s). [Automated mess age] The system which ge nerated this result tra nsmitted reference range : 0.10 - 0.50 mcg/ml FEU . The reference range was not used to interpr et this result as normal/abnormal . Lab Interpretation Abnormal (test code = 18003-3) [facility] Zqzop9216-30-03 02:32:45 Test Item Value Reference Range Interpretation Comments D-Dimer (test code = 3.04 See_Comment H [place] 87[address]-6) exclusion of ve nous thromboembolism is <0.51 mcg/mL FEUs (fi brinogen equivalent unit s). [Automated mess age] The system which ge nerated this result tra nsmitted reference range : 0.10 - 0.50 mcg/ml FEU . The reference range was not used to interpr et this result as normal/abnormal . Lab Interpretation Abnormal (test code = 00242-7) [facility] [id number] 01:31:58 Test Item Value Reference Range Interpretation Comments V Lactate (test code = 2519-7) 1.2 mmol/L 0.5-1.6 [facility] [id number] 01:31:58 Test Item Value Reference Range Interpretation Comments V Lactate (test code = 2519-7) 1.2 mmol/L 0.5-1.6 [facility] HospitalCOVID-19 (SARS-CoV-2)Ngpypuuqzhrs-MR6674-75-07 23:01:01 Test Item Value Reference Range Interpretation Comments COVID19 Not Detected Not Detected (SARS-CoV-2) (test code = 85363-0) COVID19 SARS Inpatient Indication (test Admission code = 77172) Covid 19 Comment See Note The ruby S ARS-CoV-2 (test code = [place] [address]) use on the jeanne s [employer] System [...] sheet for patie nts provided by the [employer] ([employer]) can be rev iewed at: https://www.fda .gov/m edia/495547/otf nload. A fact sheet fo Health Care pro viders is provided by the [employer] ([employer]) and can be reviewed at: https://www.fda .gov/m edia/965011/otf nload Results must be interpreted wit hin [...] is assay has been authorized by t FDA for use only un teetee Emergency Use Authorization ( EUA) in laboratories that have been CLIA-certified to perform moderate-comple xity and high-comple xity tests. The Microbiology Laboratory at [facility], CLIA Accreditation #[id number] and CAP Accreditation #[id number], verif ied the performance characteristics of this assay. Int ernal controls are us ed to monitor all sta ges of the test proces s. [facility] HospitalCOVID-19 (SARS-CoV-2)Wvkrnylnhvqg-LK4337-06-07 23:01:01 Test Item Value Reference Range Interpretation Comments COVID19 Not Detected Not Detected (SARS-CoV-2) (test code = 12165-1) COVID19 SARS Inpatient Indication (test Admission code = 56220) Covid 19 Comment See Note The ruby S ARS-CoV-2 (test code = [place] [address]) use on the jeanne s [employer] System [...] sheet for patie nts provided by the [employer] ([employer]) can be rev iewed at: https://www.fda .gov/m edia/444486/otf nload. A fact sheet fo r Health Care pro viders is provided by the [employer] ([employer]) and can be reviewed at: https://www.fda .gov/m edia/316040/otf nload Results must be interpreted wit hin [...] is assay has been authorized by t FDA for use only un [place] Emergency Use Authorization ( EUA) in laboratories that have been CLIA-certified to perform moderate-comple xity and high-comple xity tests. The Microbiology Laboratory at [facility], CLIA Accreditation #[id number] and CAP Accreditation #[id number], verif ied the performance characteristics of this assay. Int ernal controls are us ed to monitor all sta ges of the test proces s. [facility] HospitalCKMB2023-04-07 21:13:54CK MB<2.0<=5.3 ng/mLUT [facility]USUnTexas [facility] DentonCKMB2023-04-07 21:13:54CK MB<2.0<=5.3 ng/mLUT [facility]TRAL CAMPUSUnTexas Health DentonLipase 2023-02-05 21:08:09 Test Item Value Reference Range Interpretation Comments Lipase Lvl (test code = 3040-3) 18 U/L 13-60 [facility]ase2023-04-07 21:08:09 Test Item Value Reference Range Interpretation Comments Lipase Lvl (test code = 3040-3) 18 U/L 13-60 [facility] HospitalAmylase [id number] 21:08:08 Test Item Value Reference Range Interpretation Comments Amylase Lvl (test code = 1798-8) 43 U/L 28-100 [facility] HospitalAmylase [id number] 21:08:08 Test Item Value Reference Range Interpretation Comments Amylase Lvl (test code = 1798-8) 43 U/L 28-100 [facility] HospitalHematocrit2023-03-30 13:50:44 Test Item Value Reference Range Interpretation Comments Hct (test code = 4544-3) 40.6 % 37.0-47.0 [facility] HospitalHematocrit2023-03-30 13:50:44 Test Item Value Reference Range Interpretation Comments Hct (test code = 4544-3) 40.6 % 37.0-47.0 [facility] HospitalHemoglobin2023-03-30 13:50:43 Test Item Value Reference Range Interpretation Comments Hgb (test code = 13.3 See_Comment [Automated message] The 718-7) system which ge nerated this result transmit kaylie reference range : 12.0 - 16.0 gm/dL. The reference range was not u sed to interpret this result as normal/abnormal . [facility] HospitalHemoglobin2023-03-30 13:50:43 Test Item Value Reference Range Interpretation Comments Hgb (test code = 13.3 See_Comment [Automated message] The 718-7) system which ge nerated this result transmit kaylie reference range : 12.0 - 16.0 gm/dL. The reference range was not u sed to interpret this result as normal/abnormal . [facility] HospitalTetrahydocannabinol (THC), Quantitative, [id number] 19:13:38 Test Item Value Reference Range Interpretation Comments U THC GC/MS-[place] n/a (test code = 7812) U THC [facility] see note Carboxy-TH C Confirmation, (test code [...] by LC-MS/MS: 42 ng/mLReference Value: Cutoff: 5 ======VAMSI Alvarado LAB:[facility] [address] [facility] [facility] [place] [address] 905 Moe Guzman M.D. Ph.D. [id number] U THC [facility] n/a (test code = 7811) [facility] HospitalTetrahydocannabinol (THC), Quantitative, [id number] 19:13:38 Test Item Value Reference Range Interpretation Comments U THC GC/MS-[place] n/a (test code = 7812) U THC [facility] see note Carboxy-TH C Confirmation, (test code [...] 42 ng/mLReference Value: Cutoff: 5 ======PERFORMIN G LAB:SDL [facility] Lab oratories [facility] [address] [place] [address] 314 Moe Guzman M.D. Ph.D. [id number] U THC [facility] n/a (test code = 7811) [facility] HospitalUrinalysis Microscopic Exam 2023-01-27 04:26:48 Test Item Value Reference Range Interpretation Comments UA WBC (test code = 6 See_Comment H Some rep orting 26824-9) parameters with in the Urinalysis test have changed due to the implementation of new instrumentation in the [facility], al lowing greater sensiti vity of measurement. Urinalysis resu lts reported by the [facility] C enters using existing instrumentation , as well as Urinaly sis testing perform ed manually or by backup methodology at the [facility] chino l remain relative ly unchanged. New reporting asha eters and units will not be reported for [facility]. [Auto mated message] The sy stem which generated this result transmit kaylie reference range : 0 - 2 /HPF. The refer ence range was not u sed to interpret this result as normal/abnor mal. UA RBC (test code = See_Comment [Automa kaylie message] 30790-6) The system [employer] generated this result transmitted ref erence range: 0 - 2 /H PF. The reference range was not used to int erpret this result as normal/abnormal . UA Mucous (test code = NOT SEEN Not Seen-Trace 16562-0) /HPF UA Bacteria (test code NOT SEEN NOT SEEN /HPF = 29261-2) UA Squam Epi (test OCC None-Occasional code = 30765-1) /HPF Lab Interpretation Abnormal (test code = 95988-9) [facility] Center[facility] Microscopic Exam 2023-01-27 04:26:48 Test Item Value Reference Range Interpretation Comments UA WBC (test code = 6 See_Comment H Some rep orting 37683-2) parameters with in the Urinalysis test have changed due to the implementation of new instrumentation in the [facility], al lowing greater sensiti vity of measurement. Urinalysis resu lts reported by the [facility] C enters using existing instrumentation , as well as Urinaly sis testing perform ed manually or by backup methodology at the [facility] chino l remain relative ly unchanged. New reporting asha eters and units will not be reported for [facility]. [Auto mated message] The sy stem which generated this result transmit kaylie reference range : 0 - 2 /HPF. The refer ence range was not u sed to interpret this result as normal/abnor mal. UA RBC (test code = See_Comment [Automa kaylie message] 51468-5) The system [employer] generated this result transmitted ref erence range: 0 - 2 /H PF. The reference range was not used to int erpret this result as normal/abnormal . UA Mucous (test code = NOT SEEN Not Seen-Trace 52785-0) /HPF UA Bacteria (test code NOT SEEN NOT SEEN /HPF = 02503-4) UA Squam Epi (test OCC None-Occasional code = 33170-6) /HPF Lab Interpretation Abnormal (test code = 45935-6) [facility] Hospital[facility]inalysis w/Microscopic if [id number] 03:58:37 Test Item Value Reference Range Interpretation Comments UA Color (test code = 95482-5) Straw Straw-Yellow UA Appear (test code = 43195-8) Clear Clear UA Glucose (test code = [...] NEG Lab Interpretation (test code = Abnormal 42094-4) [facility] Hospital[facility]inalysis w/Microscopic if [id number] 03:58:37 Test Item Value Reference Range Interpretation Comments UA Color (test code = 12292-4) Straw Straw-Yellow UA Appear (test code = 70579-7) Clear Clear UA Glucose (test code = [...] NEG Lab Interpretation (test code = Abnormal 14990-3) [facility] HospitalLDH2023-03-28 20:38:14 Test Item Value Reference Range Interpretation Comments LDH (test code = 289 U/L 135-214 H Results gre ater than 87537-3) 1651 U/L may no t be reliable due to matrix effect w ith extended diluti on as it exceeds the [employer]'s recommended [place]berg it. Caution should be exercised when interpreting agarwal ch values and done in conjunction wit h clinical contex t. Lab Interpretation (test Abnormal code = 44959-4) [facility] HospitalLDH2023-03-28 20:38:14 Test Item Value Reference Range Interpretation Comments LDH (test code = 289 U/L 135-214 H Results gre ater than 66633-6) 1651 U/L may no t be reliable due to matrix effect w ith extended diluti on as it exceeds the [employer] recommended goldberg it. Caution should be exercised when interpreting agarwal ch values and done in conjunction wit h clinical contex t. Lab Interpretation (test Abnormal code = 39802-7) [facility] HospitalControlled Substance Monitoring Panel, [id number] 09:20:34 Test Item Value Reference Interpretation Comments Range Urine Creatinine 55.1 mg/dL (test code = 2161-8) Urine Specific 1.014 [place] (test code = 5810-7) Urine Ph (test 6.2 code = 2756-5) Urine Oxidants Negative Cutoff: 200 (test code = mg/L 31487-2) Urine Comment Normal (test code = 65462-7) U Negative Cutoff: 200 Barbiturates-Luu ng/mL (test code = 45177-7) U Cocaine Lvl-[place] Negative Cutoff: 150 This coca ine immunoassay (test code = ng/mL targets benzoyl ecgonine 84655-7) theprimary meta bolite of cocaine. U THC-[place] (test See Cutoff: 50 A RESULT: Pre sumptive code = 77979-3) Footnote ng/mL PositiveThis immunoassay targets delta-9 tetrahydrocanna [...] code Not Cutoff: 25 Tylenol 3 = 68895-6) Detected ng/mL Eviojxe-7-uuis-glu Not Cutoff: 100 Metabolit e of codeine curonide (test Detected ng/mL code = 84980-6) Morphine (test Not Cutoff: 25 Gayle Mary n, MS Contin; Also code = 16211-2) Detected ng/mL a minor meta bolite (10%) ofcodeine and c an be seen in low concentrati ons (<2,000ng/mL) w ith poppy seed ingestion. Dthxmaav-1-umzt-gl Not Cutoff: 100 Metabolit e of morphine ucuronide (test Detected ng/mL code = 37580-3) 6-monoacetylmorphi Not Cutoff: 25 Metabolit e of heroin ne (test code = Detected ng/mL 71605-2) Hydrocodone (test Not Cutoff: 25 Lortab, No rco, Vicodin; Also a code = 47947-0) Detected ng/mL very minor m etabolite ofcodeine and impurity (< 1%) of oxycodone. Norhydrocodone Not Cutoff: 25 Metabolite of hydrocodone (test code = Detected ng/mL 28540-2) Dihydrocodeine Not Cutoff: 25 Metabolite of hydrocodone (test code = Detected ng/mL 67601-4) Hydromorphone Not Cutoff: 25 Dilaudid, Exal go; Also a (test code = Detected ng/mL metabolite of h ydrocodone and 84573-8) aminor (<5%) me tabolite of morphine. Pobkxazlhwizp-4-yo Not Cutoff: 100 Metabolit e of hydromorphone ta-glucuronide Detected ng/mL (test code = 44942-4) Oxycodone (test Present Cutoff: 25 A Endocet, Per cocet, Oxycontin code = 62372-5) ng/mL Noroxycodone (test Present Cutoff: 25 A Metabolit e of oxycodone code = 49123-9) ng/mL Oxymorphone (test Not Cutoff: 25 Numorphan, Opana; Also a code = 39418-5) Detected ng/mL metabolite o f oxycodone. Exzvcabfrxq-8-pzmk Not Cutoff: 100 Metabolit e of oxymorphone -glucuronide (test Detected ng/mL and/or na loxone (nornaloxone) code = 39812-0) Noroxymorphone Present Cutoff: 25 A Metabolite of oxymorphone (test code = ng/mL and/or naloxone (nornaloxone) 38087-2) Fentanyl (test Not Cutoff: 2 Actiq, Durage sic, Fentora code = 67858-9) Detected ng/mL Norfentanyl (test Not Cutoff: 2 Metabolite of fentanyl code = 02197-4) Detected ng/mL Meperidine (test Not Cutoff: 25 Demerol code = 62811-5) Detected ng/mL Normeperidine Not Cutoff: 25 Metabolite of meperidine (test code = Detected ng/mL 30334-4) Naloxone (test Not Cutoff: 25 Narcan code = 76097-1) Detected ng/mL Otrghmty-0-gkwi-gl Not Cutoff: 100 Metabolit e of naloxone ucuronide (test Detected ng/mL code = 19426-2) U Methadone (test Not Cutoff: 25 Dolophine code = 48981-7) Detected ng/mL EDDP (test code = Not Cutoff: 25 Metabolite of methadone 33596-3) Detected ng/mL Propoxyphene (test Not Cutoff: 25 Darvon, D arvocet code = 36923-3) Detected ng/mL Norpropoxyphene Not Cutoff: 25 Metabolite o f propoxyphene (test code = Detected ng/mL 11247-2) Tramadol (test Not Cutoff: 25 Tradol, Ultra m, Ultracet code = 45254-8) Detected ng/mL O-desmethyltramado Not Cutoff: 25 Metabolit e of tramadol l (test code = Detected ng/mL 54827-6) Tapentadol (test Not Cutoff: 25 Nucynta code = 51343-7) Detected ng/mL Tbuqfxpdhj-zdfd-wr Not Cutoff: 100 Metabolit e of tapentadol ucuronide (test Detected ng/mL code = 15447-2) Buprenorphine Not Cutoff: 5 Buprenex, Subo xone (test code = Detected ng/mL 95823-5) Norbuprenorphine Not Cutoff: 5 Metabolite of buprenorphine (test code = Detected ng/mL 82029-1) Norbuprenorphine Not Cutoff: 20 Metabolite of buprenorphine Glucuronide (test Detected ng/mL code = 44727-4) Benzodiazepine See Test detected the presence of Interp Urine (test Footnote alprazola m and two of code = 28923-0) itsmetabolit es (alpha-hydroxya lprazolam andalpha-hydrox yalprazolam glucuronide). S uspect use ofalprazolam wi thin the past three days. Hailey t detected the presence of zol pidem kyvqky-7-qxjzsb ylicacid (metabolite of zolpidem) only. Suspect use of zolpidemwithin the past four d ays. ----ADDITIONAL INFORMATION---- T his test was de veloped and its performance characteristics determined by [facility] in a manner consistent with CLIArequirement s. This test has not been cleare d or approved bythe U.S. Food and Drug Administration. Alprazolam Urine Present Cutoff: 10 A Xanax (test code = ng/mL 45577-7) Alpha-Hydroxyalpra Present Cutoff: 10 A Metabolit e of Alprazolam zolam Urine (test ng/mL code = 30264-7) Alpha-Hydroxyalpra Present Cutoff: 50 A Metabolit e of Alprazolam zolam Glucuronide ng/mL Urine (test code = 65960-3) Chlordiazepoxide Not Cutoff: 10 Librium Urine (test code = Detected ng/mL 83792-5) Colbazam Urine Not Cutoff: 10 Frisium, Onfi (test code = Detected ng/mL 08026-1) N-Desmethylclobaza Not Cutoff: 200 Metabolit e of Clobazam m Urine (test code Detected ng/mL = 11656-9) Clonazepam Urine Not Cutoff: 10 Klonopin, R ivotril (test code = Detected ng/mL 35424-8) 7-Aminoclonazepam Not Cutoff: 10 Metabolite of Clonazepam Urine (test code = Detected ng/mL 92279-0) Diazepam Urine Not Cutoff: 10 Valium (test code = Detected ng/mL 48164-2) Nordiazepam Urine Not Cutoff: 10 Metabolite of Chlordiazepoxide, (test code = Detected ng/mL Diazepam, or Pr azepam. 38709-1) Flunitrazepam Not Cutoff: 10 Rohypnol Urine (test code = Detected ng/mL 36890-3) 7-Aminoflunitrazep Not Cutoff: 10 Metabolit e of Flunitrazepam am Urine (test Detected ng/mL code = 10420-2) FlUrinerazepam Not Cutoff: 10 Dalmane Urine (test code = Detected ng/mL 49075-9) 2-Hydroxy Ethyl Not Cutoff: 10 Metabolite o f Flurazepam Flurazepam Urine Detected ng/mL (test code = 62882-2) Lorazepam Urine Not Cutoff: 10 Ativan (test code = Detected ng/mL 72595-7) Lorazepam Not Cutoff: 50 Metabolite of L orazepam Glucuronide Urine Detected ng/mL (test code = 32363-0) Midazolam Urine Not Cutoff: 10 Versed (test code = Detected ng/mL 30337-5) Alpha-Hydroxy Not Cutoff: 10 Metabolite of Midazolam Midazolam Urine Detected ng/mL (test code = 53987-2) Oxazepam Urine Not Cutoff: 10 Serax; Also a metabolite of (test code = Detected ng/mL Chlordiazepoxid e, Diazepam, 37512-9) orTemazepam. Oxazepam Not Cutoff: 50 Metabolite of O xazepam Glucuronide Urine Detected ng/mL (test code = 31915-3) Prazepam Urine Not Cutoff: 10 Centrax (test code = Detected ng/mL 40182-9) Temazepam Urine Not Cutoff: 10 Restoril; Al so a metabolite of (test code = Detected ng/mL Diazepam. 42535-8) Temazepam Not Cutoff: 50 Metabolite of T emazepam Glucuronide Urine Detected ng/mL (test code = 64341-6) Triazolam Urine Not Cutoff: 10 Halcion (test code = Detected ng/mL 63684-2) Alpha-Hydroxy Not Cutoff: 10 Metabolite of Triazolam Triazolam Urine Detected ng/mL (test code = 82121-0) Zolpidem Urine Not Cutoff: 10 Ambien (test code = Detected ng/mL 23816-0) Zolpidem Present Cutoff: 10 A Metabolite of Z olpidem Ipdco-9-Ptbmxirveb ng/mL Acid Urine (test code = 50166-0) Methamphetamine Not Cutoff: 100 Desoxyn (test code = Detected ng/mL 06195-3) Amphetamine (test Not Cutoff: 100 Dyanavel X R, Adzenys ER, code = 79376-0) Detected ng/mL Adderall, Vy vanse; Also ametabolite of methamphetamine 3,4-Methylenedioxy Not Cutoff: 100 methamphetamine Detected ng/mL (MDMA) (test code = 09125-0) 3,4-Methylenedioxy Not Cutoff: 100 -N-Ethylamphetamin Detected ng/mL e (MDEA) (test code = 74012-7) 3,4-Methylenedioxy Not Cutoff: 100 Also a me tabolite of MDMA amphetamine (MDA) Detected ng/mL and/or MDE A (test code = 58071-0) Ephedrine (test Not Cutoff: 100 code = 52282) Detected ng/mL Pseudoephedrine Present Cutoff: 100 A Sudafed (test code = ng/mL 25714) Phentermine (test Not Cutoff: 100 Adipex-P, Lomaira, Qsymia code = 00340-4) Detected ng/mL Phencyclidine Not Cutoff: 20 (PCP) (test code = Detected ng/mL 20349-3) Methylphenidate Not Cutoff: 20 Ritalin, Con certa (test code = Detected ng/mL 75806-2) Ritalinic acid Not Cutoff: 100 Metabolite of methylphenidate (test code = Detected ng/mL 42142) Stimulant See Test detected t he presence of Interpretation Footnote pseudoephedri ne. Suspect useof (test code = pseudoephedrine within the past 49555-5) three days. ----ADDITIONAL INFORMATION---- T his test was de veloped and its performance characteristics determined by [facility] in a manner consistent with CLIArequirement s. This test has not been cleare d or approved bythe U.S. Food and Drug Administration. Test Performed by:[facility] [address] [place], [place] [address]Xpx Dir ronnie: Moe Guzman M.D. Ph.D.; CLIA# [id number] Patients Current NOT ---------ADDITIONAL Medications (test ANSWERED INFORMATIO N A code = 69307-5) ccuracy and completeness of declared medica tions onreports solely dependen t on information submitted bycli ent. Lab Interpretation Abnormal (test code = 01820-7) [facility] Cancer AmeryControlled Substance Monitoring Panel, [id number] 09:20:34 Test Item Value Reference Interpretation Comments Range Urine Creatinine 55.1 mg/dL (test code = 2161-8) Urine Specific 1.014 [place] (test code = 5810-7) Urine Ph (test 6.2 code = 2756-5) Urine Oxidants Negative Cutoff: 200 (test code = mg/L 62928-6) Urine Comment Normal (test code = 45026-7) U Negative Cutoff: 200 Barbiturates-[place] ng/mL (test code = 37289-1) U Cocaine Lvl-[place] Negative Cutoff: 150 This coca ine immunoassay (test code = ng/mL targets benzoyl ecgonine 93299-5) theprimary meta bolite of cocaine. U THC-[place] (test See Cutoff: 50 A RESULT: Pre sumptive code = 91045-6) Footnote ng/mL PositiveThis immunoassay targets delta-9 tetrahydrocanna [...] code Not Cutoff: 25 Tylenol 3 = 71765-0) Detected ng/mL Aqugyap-5-xwze-glu Not Cutoff: 100 Metabolit e of codeine curonide (test Detected ng/mL code = 84872-4) Morphine (test Not Cutoff: 25 Avinza, Gayle n, MS Contin; Also code = 08610-6) Detected ng/mL a minor meta bolite (10%) ofcodeine and c an be seen in low concentrati ons (<2,000ng/mL) w ith poppy seed ingestion. Fhqdydus-4-glya-gl Not Cutoff: 100 Metabolit e of morphine ucuronide (test Detected ng/mL code = 37275-1) 6-monoacetylmorphi Not Cutoff: 25 Metabolit e of heroin ne (test code = Detected ng/mL 28145-3) Hydrocodone (test Not Cutoff: 25 Lortab, No rco, Vicodin; Also a code = 88220-9) Detected ng/mL very minor m etabolite ofcodeine and impurity (< 1%) of oxycodone. Norhydrocodone Not Cutoff: 25 Metabolite of hydrocodone (test code = Detected ng/mL 18820-3) Dihydrocodeine Not Cutoff: 25 Metabolite of hydrocodone (test code = Detected ng/mL 53386-7) Hydromorphone Not Cutoff: 25 Dilaudid, Exal go; Also a (test code = Detected ng/mL metabolite of h ydrocodone and 72769-4) aminor (<5%) me tabolite of morphine. Nndhooexjgdhd-3-ge Not Cutoff: 100 Metabolit e of hydromorphone ta-glucuronide Detected ng/mL (test code = 65019-5) Oxycodone (test Present Cutoff: 25 A Endocet, Per cocet, Oxycontin code = 05859-9) ng/mL Noroxycodone (test Present Cutoff: 25 A Metabolit e of oxycodone code = 93461-6) ng/mL Oxymorphone (test Not Cutoff: 25 Numorphan, Opana; Also a code = 46560-7) Detected ng/mL metabolite o f oxycodone. Wzmyhrawbln-5-ndjf Not Cutoff: 100 Metabolit e of oxymorphone -glucuronide (test Detected ng/mL and/or na loxone (nornaloxone) code = 09043-7) Noroxymorphone Present Cutoff: 25 A Metabolite of oxymorphone (test code = ng/mL and/or naloxone (nornaloxone) 92765-3) Fentanyl (test Not Cutoff: 2 Actiq, Durage sic, Fentora code = 68223-6) Detected ng/mL Norfentanyl (test Not Cutoff: 2 Metabolite of fentanyl code = 67058-7) Detected ng/mL Meperidine (test Not Cutoff: 25 Demerol code = 19420-6) Detected ng/mL Normeperidine Not Cutoff: 25 Metabolite of meperidine (test code = Detected ng/mL 21171-6) Naloxone (test Not Cutoff: 25 Narcan code = 05814-6) Detected ng/mL Hhxpmvwi-2-nakz-gl Not Cutoff: 100 Metabolit e of naloxone ucuronide (test Detected ng/mL code = 17176-1) U Methadone (test Not Cutoff: 25 Dolophine code = 44200-8) Detected ng/mL EDDP (test code = Not Cutoff: 25 Metabolite of methadone 71615-5) Detected ng/mL Propoxyphene (test Not Cutoff: 25 Darvon, D arvocet code = 62573-3) Detected ng/mL Norpropoxyphene Not Cutoff: 25 Metabolite o f propoxyphene (test code = Detected ng/mL 84035-1) Tramadol (test Not Cutoff: 25 Tradol, Ultra m, Ultracet code = 77844-6) Detected ng/mL O-desmethyltramado Not Cutoff: 25 Metabolit e of tramadol l (test code = Detected ng/mL 48577-6) Tapentadol (test Not Cutoff: 25 Nucynta code = 04193-1) Detected ng/mL Wfrkgfftqa-ezcv-vi Not Cutoff: 100 Metabolit e of tapentadol ucuronide (test Detected ng/mL code = 97317-4) Buprenorphine Not Cutoff: 5 Buprenex, Subo xone (test code = Detected ng/mL 19662-1) Norbuprenorphine Not Cutoff: 5 Metabolite of buprenorphine (test code = Detected ng/mL 99162-2) Norbuprenorphine Not Cutoff: 20 Metabolite of buprenorphine Glucuronide (test Detected ng/mL code = 75095-2) Benzodiazepine See Test detected the presence of Interp Urine (test Footnote alprazola m and two of code = 29797-8) itsmetabolit es (alpha-hydroxya lprazolam andalpha-hydrox yalprazolam glucuronide). S uspect use ofalprazolam wi thin the past three days. Hailey t detected the presence of zol pidem poszao-9-hqaupb ylicacid (metabolite of zolpidem) only. Suspect use of zolpidemwithin the past four d ays. ----ADDITIONAL INFORMATION---- T his test was de veloped and its performance characteristics determined by [facility] in a manner consistent with CLIArequirement s. This test has not been cleare d or approved bythe U.S. Food and Drug Administration. Alprazolam Urine Present Cutoff: 10 A Xanax (test code = ng/mL 83163-0) Alpha-Hydroxyalpra Present Cutoff: 10 A Metabolit e of Alprazolam zolam Urine (test ng/mL code = 25478-8) Alpha-Hydroxyalpra Present Cutoff: 50 A Metabolit e of Alprazolam zolam Glucuronide ng/mL Urine (test code = 00486-4) Chlordiazepoxide Not Cutoff: 10 Librium Urine (test code = Detected ng/mL 18162-0) Colbazam Urine Not Cutoff: 10 Frisium, Onfi (test code = Detected ng/mL 03608-7) N-Desmethylclobaza Not Cutoff: 200 Metabolit e of Clobazam m Urine (test code Detected ng/mL = 08587-4) Clonazepam Urine Not Cutoff: 10 Klonopin, R ivotril (test code = Detected ng/mL 71837-1) 7-Aminoclonazepam Not Cutoff: 10 Metabolite of Clonazepam Urine (test code = Detected ng/mL 70250-5) Diazepam Urine Not Cutoff: 10 Valium (test code = Detected ng/mL 82467-1) Nordiazepam Urine Not Cutoff: 10 Metabolite of Chlordiazepoxide, (test code = Detected ng/mL Diazepam, or Pr azepam. 51066-8) Flunitrazepam Not Cutoff: 10 Rohypnol Urine (test code = Detected ng/mL 34497-3) 7-Aminoflunitrazep Not Cutoff: 10 Metabolit e of Flunitrazepam am Urine (test Detected ng/mL code = 79228-1) FlUrinerazepam Not Cutoff: 10 Dalmane Urine (test code = Detected ng/mL 69788-1) 2-Hydroxy Ethyl Not Cutoff: 10 Metabolite o f Flurazepam Flurazepam Urine Detected ng/mL (test code = 68497-7) Lorazepam Urine Not Cutoff: 10 Ativan (test code = Detected ng/mL 27722-5) Lorazepam Not Cutoff: 50 Metabolite of L orazepam Glucuronide Urine Detected ng/mL (test code = 72043-9) Midazolam Urine Not Cutoff: 10 Versed (test code = Detected ng/mL 30923-5) Alpha-Hydroxy Not Cutoff: 10 Metabolite of Midazolam Midazolam Urine Detected ng/mL (test code = 89561-7) Oxazepam Urine Not Cutoff: 10 Serax; Also a metabolite of (test code = Detected ng/mL Chlordiazepoxid e, Diazepam, 57632-0) orTemazepam. Oxazepam Not Cutoff: 50 Metabolite of O xazepam Glucuronide Urine Detected ng/mL (test code = 49655-3) Prazepam Urine Not Cutoff: 10 Centrax (test code = Detected ng/mL 24427-4) Temazepam Urine Not Cutoff: 10 Restoril; Al so a metabolite of (test code = Detected ng/mL Diazepam. 53576-2) Temazepam Not Cutoff: 50 Metabolite of T emazepam Glucuronide Urine Detected ng/mL (test code = 30411-0) Triazolam Urine Not Cutoff: 10 Halcion (test code = Detected ng/mL 03639-9) Alpha-Hydroxy Not Cutoff: 10 Metabolite of Triazolam Triazolam Urine Detected ng/mL (test code = 92728-8) Zolpidem Urine Not Cutoff: 10 Ambien (test code = Detected ng/mL 58950-4) Zolpidem Present Cutoff: 10 A Metabolite of Z olpidem Jopol-9-Pignxisuqd ng/mL Acid Urine (test code = 25396-0) Methamphetamine Not Cutoff: 100 Desoxyn (test code = Detected ng/mL 84429-2) Amphetamine (test Not Cutoff: 100 Dyanavel X R, Adzenys ER, code = 25120-7) Detected ng/mL Adderall, Vy vanse; Also ametabolite of methamphetamine 3,4-Methylenedioxy Not Cutoff: 100 methamphetamine Detected ng/mL (MDMA) (test code = 89184-1) 3,4-Methylenedioxy Not Cutoff: 100 -N-Ethylamphetamin Detected ng/mL e (MDEA) (test code = 84616-3) 3,4-Methylenedioxy Not Cutoff: 100 Also a me tabolite of MDMA amphetamine (MDA) Detected ng/mL and/or MDE A (test code = 08958-7) Ephedrine (test Not Cutoff: 100 code = 50656) Detected ng/mL Pseudoephedrine Present Cutoff: 100 A Sudafed (test code = ng/mL 90437) Phentermine (test Not Cutoff: 100 Adipex-P, Lomaira, Qsymia code = 66038-0) Detected ng/mL Phencyclidine Not Cutoff: 20 (PCP) (test code = Detected ng/mL 63067-7) Methylphenidate Not Cutoff: 20 Ritalin, Con certa (test code = Detected ng/mL 85728-9) Ritalinic acid Not Cutoff: 100 Metabolite of methylphenidate (test code = Detected ng/mL 51275) Stimulant See Test detected t he presence of Interpretation Footnote pseudoephedri ne. Suspect useof (test code = pseudoephedrine within the past 72634-3) three days. ----ADDITIONAL INFORMATION---- T his test was de veloped and its performance characteristics determined by [facility] in a manner consistent with CLIArequirement s. This test has not been cleare d or approved bythe U.S. Food and Drug Administration. Test Performed by:[facility] [address] [place], [place] [address]Sbb Dir ronnie: Moe Guzman M.D. Ph.D.; CLIA# [id number] Patients Current NOT ---------ADDITIONAL Medications (test ANSWERED INFORMATIO N A code = 97304-6) ccuracy and completeness of declared medica tions onreports solely dependen t on information submitted bycli ent. Lab Interpretation Abnormal (test code = 59004-6) [facility] Urine Drug [id number] 18:30:48 Test Item Value Reference Range Interpretation Comments POC U Amp (test code Negative Negative Drug Ab use Cutoff = 44095-3) Concentration: Cutoff: 1000 ng /mL POC U Barbit (test Negative Negative Drug Abus e Cutoff code = 07318-1) Concentratio n: 300 ng/mL POC U Benzo (test Positive Negative A Drug Abuse Cutoff code = 49236-8) Concentratio n: Cutoff: 300 ng/ mL POC U Cocaine (test Negative Negative Drug Abu se Cutoff code = 52030-7) Concentratio n: Cutoff: 300 ng/ mL POC U THC (test code Positive Negative A Drug Ab use Cutoff = 6709) Concentration: Cutoff: 50 ng/m L POC U Methd (test Negative Negative Drug Abuse Cutoff code = 6701) Concentration: Cutoff: 300 ng/ mL POC U Mampht (test Negative Negative Drug Abus e Cutoff code = 94473-1) Concentratio n: Cutoff: 1000 ng /mL POC U Opiate (test Negative Negative Drug Abus e Cutoff code = 31602-4) Concentratio n: Cutoff: 2000 ng /mL POC U Oxycod (test Positive Negative A Drug Abus e Cutoff code = 16684-8) Concentratio n: Cutoff: 100 ng/ mL Due to the assa y cross reactivit y between Oxycodo ne and Opiates, an d lower sensitivi ty compared to GC- MS method, the hailey t results may be falsely positiv e or falsely negative. Confirmation wi th concurrent GC-M S results is recommended. POC U PCP (test code Negative Negative Drug Ab use Cutoff = 06577-1) Concentration: Cutoff: 25 ng/m L POC U TCA (test code Negative Negative Drug Ab use Cutoff = 07654-8) Concentration: Cutoff: 1000 ng /mL POC U PPX (test code Negative Negative Drug Ab use Cutoff = 59389-7) Concentration: Cutoff: 300 ng/ mL Method description: [...] testing. Lab Interpretation Abnormal (test code = 32392-2) [facility] Urine Drug [id number] 18:30:48 Test Item Value Reference Range Interpretation Comments POC U Amp (test code Negative Negative Drug Ab use Cutoff = 57308-8) Concentration: Cutoff: 1000 ng /mL POC U Barbit (test Negative Negative Drug Abus e Cutoff code = 95441-7) Concentratio n: 300 ng/mL POC U Benzo (test Positive Negative A Drug Abuse Cutoff code = 53470-1) Concentratio n: Cutoff: 300 ng/ mL POC U Cocaine (test Negative Negative Drug [place] Cutoff code = 67851-3) Concentratio n: Cutoff: 300 ng/ mL POC U THC (test code Positive Negative A Drug Ab use Cutoff = 6709) Concentration: Cutoff: 50 ng/m L POC U Methd (test Negative Negative Drug Abuse Cutoff code = 6701) Concentration: Cutoff: 300 ng/ mL POC U Mampht (test Negative Negative Drug Abus e Cutoff code = 81870-6) Concentratio n: Cutoff: 1000 ng /mL POC U Opiate (test Negative Negative Drug Abus e Cutoff code = 77445-1) Concentratio n: Cutoff: 2000 ng /mL POC U Oxycod (test Positive Negative A Drug Abus e Cutoff code = 61596-5) Concentratio n: Cutoff: 100 ng/ mL Due to the assa y cross reactivit y between Oxycodo ne and Opiates, an d lower sensitivi ty compared to GC- MS method, the hailey t results may be falsely positiv e or falsely negative. Confirmation wi th concurrent GC-M S results is recommended. POC U PCP (test code Negative Negative Drug Ab use Cutoff = 69330-2) Concentration: Cutoff: 25 ng/m L POC U TCA (test code Negative Negative Drug Ab use Cutoff = 65086-0) Concentration: Cutoff: 1000 ng /mL POC U PPX (test code Negative Negative Drug Ab use Cutoff = 68354-8) Concentration: Cutoff: 300 ng/ mL Method description: [...] testing. Lab Interpretation Abnormal (test code = 30539-6) [facility] Cancer AmeryCOVID-19 (SARS-CoV-2) PCR- Asymptomatic [id number] 03:09:25 Test Item Value Reference Range Interpretation Comments COVID19 (SARS Not Detected Not Detected CoV-2) Result (test code = __[place] test is a 61482-8) qualitative reverse-transcr iptase polymerase alanna n reaction [...] patients provid ed by the manufacture r ([employer]) c an be reviewed at:https://www. fda.gov /media/517583/d ownload . A fact sheet for Health Care pro viders is provided by the finisher hot strip ([employer]) and can be reviewed at: https://www.fda .gov/me juliet/389573/down load Results must be interpreted wit hin [...] were verified by the Microbiology Laboratory at [facility], CLIA Accreditation # : [id number] and CAP Accreditation # : [id number]. COVID19 SARS MANAGER SUBWAY Swab Source (test code = 20790) COVID19 SARS Pre-Radiation Indication (test Therapy code = 45094) [facility]- Asymptomatic [id number] 03:09:25 Test Item Value Reference Range Interpretation Comments COVID19 (SARS Not Detected Not Detected CoV-2) Result (test code = __This test is a 55907-6) qualitative reverse-transcr iptase polymerase alanna n reaction [...] patients provid ed by the manufacture r ([employer]) c an be reviewed at:https://www. fda.gov /media/277099/d ownload . A fact sheet for Health Care pro viders is provided by the [employer]isher [employer] strip ([employer]) and can be reviewed at: https://www.fda .gov/me juliet/295798/down load Results must be interpreted wit hin [...] were verified by the Microbiology Laboratory at [facility], CLIA Accreditation # : [id number] and CAP Accreditation # : [id number]. COVID19 SARS MANAGER SUBWAY Swab Source (test code = 25031) COVID19 SARS Pre-Radiation Indication (test Therapy code = 61324) [facility] [id number] 00:43:46 Test Item Value Reference Range Interpretation Comments pH Raghavednra (test code = 7.40 7.32-7.43 Results are 2746-6) corrected for a body temp of 37C pCO2 Raghavendra (test code = 47.6 See_Comment [Auto mated message] 2021-01) The system [employer] generated this result transmit kaylie reference range : 41.0 - 51.0 mmH g. The reference r pinky was not used to interpret this result as normal/abnormal . pO2 Raghavendra (test code = 52 mmHg 2705-2) HCO3 Raghavendra (test code = 29 mmol/L 21-28 H 95608-7) Base Excess Raghavendra (test 3 mmol/L -2-3 code = 1927-3) O2 Sat Raghavendra (test code = 87 % 2711-0) Lab Interpretation (test Abnormal code = 13152-2) [facility] [id number] 00:43:46 Test Item Value Reference Range Interpretation Comments pH Raghavendra (test code = 7.40 7.32-7.43 Results are 2746-6) corrected for a body temp of 37C pCO2 Raghavendra (test code = 47.6 See_Comment [Auto mated message] 2021-01) The system [employer] generated this result transmit kaylie reference range : 41.0 - 51.0 mmH g. The reference r pinky was not used to interpret this result as normal/abnormal . pO2 Raghavendra (test code = 52 mmHg 2705-2) HCO3 Raghavendra (test code = 29 mmol/L 21-28 H 92474-7) Base Excess Raghavendra (test 3 mmol/L -2-3 code = 1927-3) O2 Sat Raghavendra (test code = 87 % 2711-0) Lab Interpretation (test Abnormal code = 71006-8) [facility] [id number] 00:17:35 Test Item Value Reference Range Interpretation Comments UA Ketones (test code = 5797-6) NEG NEG mg/dL [facility] [id number] 00:17:35 Test Item Value Reference Range Interpretation Comments UA Ketones (test code = 5797-6) NEG NEG mg/dL [facility] [id number] 21:37:06 Test Item Value Reference Range Interpretation Comments POC Critical Comment See Note Test pe rformer notified (test code = 8955) Ordering Licensed Provider and /o r designee of POC Glucose Screen critical Results.. [facility] [id number] 21:37:06 Test Item Value Reference Range Interpretation Comments POC Critical Comment See Note Test pe rformer notified (test code = 8955) Ordering Licensed Provider and /o r designee of POC Glucose Screen critical Results.. [facility] [id number] 03:40:13 Test Item Value Reference Range Interpretation Comments POC VB pH (test code 7.46 7.31-7.41 H = 2746-6) POC VB pCO2 (test 42 See_Comment [Automate d message] code = 2020-) The system [employer] generated this result transmitted ref erence range: 41 - 51 mmHg. The reference r pinky was not used to interpret this result as normal/abnor mal. POC VB pO2 (test 61 mmHg code = 2705-2) POC VB TCO2 (test 31 See_Comment H [Automate d message] code = 2026-) The system [employer] generated this result transmitted ref erence range: 24 - 29 mEq/L. The reference r pinky was not used to interpret this result as normal/abnor mal. POC VB Bicarb (test 30 mmol/L 23-28 H code = 92512-5) POC VB Base Ex (test 5 mmol/L [...] which contains microfabricated sensors, a calibration kaye Nauboon, fluidics system , and a waste chamber . Each test cartridge contains chemic ally sensitive biose nsors on a Celsias ip that are config ured to perform spec [facility] tests. The microfabricated sensors measure analyte concent ration by an electroch emical assay. POC Sample Type Venous (test code = 6690) POC Clean Dev (test Yes code = 6672) Performing Lab (test MDA Main Main Ca mpus code = 03654) [facility] Cli nical Lab, [place] [address]; [employer] Press Operator: Margarita Jacob MD; Waived Point of Care Testing - Gabrielle aaron MD Lab Interpretation Abnormal (test code = 35270-9) [facility] VBG+[id number] 03:40:13 Test Item Value Reference Range Interpretation Comments POC VB pH (test code 7.46 7.31-7.41 H = 2746-6) POC VB pCO2 (test 42 See_Comment [Automate d message] code = 2020-) The system [employer] generated this result transmitted ref erence range: 41 - 51 mmHg. The reference r pinky was not used to interpret this result as normal/abnor mal. POC VB pO2 (test 61 mmHg code = 2705-2) POC VB TCO2 (test 31 See_Comment H [Automate d message] code = 2026-) The system [employer] generated this result transmitted ref erence range: 24 - 29 mEq/L. The reference r pinky was not used to interpret this result as normal/abnor mal. POC VB Bicarb (test 30 mmol/L 23-28 H code = 92217-8) POC VB Base Ex (test 5 mmol/L [...] which contains microfabricated sensors, a calibration kaye [employer], fluidics system , and a waste chamber . Each test cartridge contains chemic ally sensitive biose nsors on a Celsias ip that are config ured to perform spec ific tests. The microfabricated sensors measure analyte concent ration by an electroch emical assay. POC Sample Type Venous (test code = 6690) POC Clean Dev (test Yes code = 6672) Performing Lab (test MDA Main Main Ca mpus code = 45105) [facility] Cli nical Lab, [address], [place] [address]; [employer] Operator: Margarita Jacob MD; Waived Point of Care Testing - Gabrielle aaron MD Lab Interpretation Abnormal (test code = 61688-1) [facility]2023-02-09 00:46:13 Test Item Value Reference Range Interpretation Comments Ammonia (test code = 18 See_Comment [Autom ated message] The 62373-2) system which ge nerated this result tra nsmitted reference range : 11 - 51 mcmol/L. The re ference range was not u sed to interpret this result as normal/abnormal . [facility]2023-02-09 00:46:13 Test Item Value Reference Range Interpretation Comments Ammonia (test code = 18 See_Comment [Autom ated message] The 10844-8) system which ge nerated this result tra nsmitted reference range : 11 - 51 mcmol/L. The re ference range was not u sed to interpret this result as normal/abnormal . [facility] Spec[facility] -[id number] 16:59:59 Test Item Value Reference Range Interpretation Comments Molecular Diagnostics (Received) Yes (test code = 8400) [employer] Ap Link (test code = 45075) [id number] Block Number (Qualitative) (test BLANK code = 8193) Outside Accession (Qualitative) [id number] (test code = 8405) [facility] Spec[facility] -[id number] 16:59:59 Test Item Value Reference Range Interpretation Comments Molecular Diagnostics (Received) Yes (test code = 8400) [employer] Ap Link (test code = 77706) [id number] Block Number (Qualitative) (test BLANK code = 8193) Outside Accession (Qualitative) [id number] (test code = 8405) [facility] PT[facility] Mutation Material Request 2022-12-04 14:02:11 Test Item Value Reference Range Interpretation Comments Archived Material The test is to be (test code = 19218) performed on tissue from case [id number]. The case report, slides, and blocks for the cited accession were retrieved from archives. The pathologist examined the candidate H&E slide and selected the block appropriate to the specifications of the ordered molecular analysis. Unstained slides and H&E slide were prepared and forwarded to Molecular Diagnostic Laboratory where the subject molecular test will be performed. Results will be reported separately. Pathologist Signature [facility] PT[facility] Mutation Material Request 2022-12-04 14:02:11 Test Item Value Reference Range Interpretation Comments Archived Material The test is to be (test code = 58390) performed on tissue from case [id number]. The case report, slides, and blocks for the cited accession were retrieved from archives. The pathologist examined the candidate H&E slide and selected the block appropriate to the specifications of the ordered molecular analysis. Unstained slides and H&E slide were prepared and forwarded to Molecular Diagnostic Laboratory where the subject molecular test will be performed. Results will be reported separately. Pathologist Signature [facility] ALK Mutation Analysis Material [id number] 14:02:06 Test Item Value Reference Range Interpretation Comments Archived Material The test is to be (test code = 13454) performed on tissue from case [id number]. The case report, slides, and blocks for the cited accession were retrieved from archives. The pathologist examined the candidate H&E slide and selected the block appropriate to the specifications of the ordered molecular analysis. Unstained slides and H&E slide were prepared and forwarded to [facility] where the subject molecular test will be performed. Results will be reported separately. [facility] [id number] 14:02:06 Test Item Value Reference Range Interpretation Comments Archived Material The test is to be (test code = 74227) performed on tissue from case [id number]. The case report, slides, and blocks for the cited accession were retrieved from archives. The pathologist examined the candidate H&E slide and selected the block appropriate to the specifications of the ordered molecular analysis. Unstained slides and H&E slide were prepared and forwarded to [facility] where the subject molecular test will be performed. Results will be reported separately. [facility] EGFR Mut[facility] Request 2022-12-04 14:02:01 Test Item Value Reference Range Interpretation Comments Archived Material The test is to be (test code = 79048) performed on tissue from case [id number]. The case report, slides, and blocks for the cited accession were retrieved from archives. The pathologist examined the candidate H&E slide and selected the block appropriate to the specifications of the ordered molecular analysis. Unstained slides and H&E slide were prepared and forwarded to [facility] where the subject molecular test will be performed. Results will be reported separately. [facility] EGFR [facility] Request 2022-12-04 14:02:01 Test Item Value Reference Range Interpretation Comments Archived Material The test is to be (test code = 43146) performed on tissue from case [id number]. The case report, slides, and blocks for the cited accession were retrieved from archives. The pathologist examined the candidate H&E slide and selected the block appropriate to the specifications of the ordered molecular analysis. Unstained slides and H&E slide were prepared and forwarded to [facility] where the subject molecular test will be performed. Results will be reported separately. [facility] ERBB2 Mutation Analysis Material [id number] 14:01:56 Test Item Value Reference Range Interpretation Comments Archived Material The test is to be (test code = 37670) performed on tissue from case [id number]. The case report, slides, and blocks for the cited accession were retrieved from archives. The pathologist examined the candidate H&E slide and selected the block appropriate to the specifications of the ordered molecular analysis. Unstained slides and H&E slide were prepared and forwarded to [facility] where the subject molecular test will be performed. Results will be reported separately. [facility] ER[facility] Material [id number] 14:01:56 Test Item Value Reference Range Interpretation Comments Archived Material The test is to be (test code = 25836) performed on tissue from case [id number]. The case report, slides, and blocks for the cited accession were retrieved from archives. The pathologist examined the candidate H&E slide and selected the block appropriate to the specifications of the ordered molecular analysis. Unstained slides and H&E slide were prepared and forwarded to [facility] where the subject molecular test will be performed. Results will be reported separately. [facility] MTOR Mutation [facility] Request 2022-12-04 14:01:51 Test Item Value Reference Range Interpretation Comments Archived Material The test is to be (test code = 12444) performed on tissue from case [id number]. The case report, slides, and blocks for the cited accession were retrieved from archives. The pathologist examined the candidate H&E slide and selected the block appropriate to the specifications of the ordered molecular analysis. Unstained slides and H&E slide were prepared and forwarded to [facility] where the subject molecular test will be performed. Results will be reported separately. [facility] MT[facility] Mutation [facility] Request 2022-12-04 14:01:51 Test Item Value Reference Range Interpretation Comments Archived Material The test is to be (test code = 78638) performed on tissue from case [id number]. The case report, slides, and blocks for the cited accession were retrieved from archives. The pathologist examined the candidate H&E slide and selected the block appropriate to the specifications of the ordered molecular analysis. Unstained slides and H&E slide were prepared and forwarded to [facility] where the subject molecular test will be performed. Results will be reported separately. [facility] NTRK1 Fusion Material Request 2022-12-04 14:01:46 Test Item Value Reference Range Interpretation Comments Archived Material The test is to be (test code = 68241) performed on tissue from case [id number]. The case report, slides, and blocks for the cited accession were retrieved from archives. The pathologist examined the candidate H&E slide and selected the block appropriate to the specifications of the ordered molecular analysis. Unstained slides and H&E slide were prepared and forwarded to [facility] where the subject molecular test will be performed. Results will be reported separately. [facility] N[facility] Fusion Material Request 2022-12-04 14:01:46 Test Item Value Reference Range Interpretation Comments Archived Material The test is to be (test code = 36642) performed on tissue from case [id number]. The case report, slides, and blocks for the cited accession were retrieved from archives. The pathologist examined the candidate H&E slide and selected the block appropriate to the specifications of the ordered molecular analysis. Unstained slides and H&E slide were prepared and forwarded to [facility] where the subject molecular test will be performed. Results will be reported separately. [facility] N[facility] Fusion Material Request 2022-12-04 14:01:41 Test Item Value Reference Range Interpretation Comments Archived Material The test is to be (test code = 66228) performed on tissue from case [id number]. The case report, slides, and blocks for the cited accession were retrieved from archives. The pathologist examined the candidate H&E slide and selected the block appropriate to the specifications of the ordered molecular analysis. Unstained slides and H&E slide were prepared and forwarded to [facility] where the subject molecular test will be performed. Results will be reported separately. [facility] N[facility] Fusion Material Request 2022-12-04 14:01:41 Test Item Value Reference Range Interpretation Comments Archived Material The test is to be (test code = 39504) performed on tissue from case [id number]. The case report, slides, and blocks for the cited accession were retrieved from archives. The pathologist examined the candidate H&E slide and selected the block appropriate to the specifications of the ordered molecular analysis. Unstained slides and H&E slide were prepared and forwarded to [facility] where the subject molecular test will be performed. Results will be reported separately. [facility] N[facility] Fusion Material Request 2022-12-04 14:01:36 Test Item Value Reference Range Interpretation Comments Archived Material The test is to be (test code = 97720) performed on tissue from case [id number]. The case report, slides, and blocks for the cited accession were retrieved from archives. The pathologist examined the candidate H&E slide and selected the block appropriate to the specifications of the ordered molecular analysis. Unstained slides and H&E slide were prepared and forwarded to [facility] where the subject molecular test will be performed. Results will be reported separately. [facility] N[facility] Fusion Material Request 2022-12-04 14:01:36 Test Item Value Reference Range Interpretation Comments Archived Material The test is to be (test code = 32545) performed on tissue from case [id number]. The case report, slides, and blocks for the cited accession were retrieved from archives. The pathologist examined the candidate H&E slide and selected the block appropriate to the specifications of the ordered molecular analysis. Unstained slides and H&E slide were prepared and forwarded to [facility] where the subject molecular test will be performed. Results will be reported separately. [facility] 2022-11-27 23:08:26 Test Item Value Reference Range Interpretation Comments Materials Received (test j1idxCUdMZHpqYSkHlBv code = 9973) EHGcOBZjp7jiQOJxwGUo ZzEwMzNcZnRuYmpcdWMx EXYdDdHkd0tin529xCUj o9ysPYWxAgJ7sDGxTNHg wQIoG801FRHuIXgzr9dr b1LxTISbcCEnh4X8CWRW bobncKh5dFwsP55xb9E5 GgbxC3nrAWTqIGQyL7Ml UU8yPCQtOin4LQD5LBN6 GEFrESByN8VmOM2sGCSx uNDaWTw2s5kgyGhaZOOi JDO6j7lsACwhdjNlOM5v nx1azMz2w6sdhpDtCKHd IGCvnBNOOXFzT9NctGly Bk7bpQp2xAczVdjxXAW1 Zbd2HZ1tnq57exh3eSyt OHPqazfpEdN7FTlnMEPb zvkwKHi3YCvlMRCtrLww MFxtYXJncjcyMFxtYXJn mCM3EEZagFXsN7QwGRWh BZigCHGmvfy8XrAhXl8e jXSueSvqBDnav4dwq9uf aVMeOui8GEVgJuLjBemv RMeod2Yxs4fxNEQbwq6u MYM9iMVzyEday6D9hMCi PHBioDIgfqLvCUTnmf03 xIKihVSmyNTmqp1aneQa wJWpeRSiAVL8dCXgdtVs NLNukCUqCYJwMC7dyURf KUDlzK6yodrsGVEsXeWq fbrfCYVtdItnfoKdHc6x qWzbEGS0UQnpO8uflL5k QhL8BImaT6tvfL4sQKr9 GSvtxUF8KBBqmC0hTX6h wrdyk4paLmWmVX0fqcom f4qoIoUhIY4goxv7t4em KQD2AToiYEUySrX4zoM4 NDBcaGVhZGVyeTcyMFxm t331VBB3IaWbJHPgz7Ry F6OsjHbqG88vnTfaK04c CANaoMagnD5pwIcrcW6g LyMgMuWwGLd7aq49TQu7 wukjaKkaEWu4rvJqKIEa FGQ8TFUojZClNTQeB6y1 wpEsSBUdVCR1WJMnvIFm KMDyV1q7ksPgQDB7OCg4 cnBhZGRmdDNcdHJwYWRk YjBcdHJwYWRkZmIzXHRy nOWrxPXgzGOgrS4ybRxz BBJfbEDhbS1xMOW1XSOl cmgzMjBcdHJoZHJcbHRy rr36CZTvpvZyeIDyaQua aZKkGTG1BZTaKMBgUNKa WCR4NZXyAeLwdeKbQOjj bGJyZHJiXGJyZHJzXGJy ULQ9UWVbXqDanrDnECjr bGJyZHJsXGJyZHJzXGJy NFZ7XAKmVtWlyfWyCFwy bGJyZHJyXGJyZHJzXGJy GDN6MFKmMjIbgrAqFKff bHBhZHQxMFxjbHBhZGZ0 H7yfwDYtHKMuTEviwOZq YJCfS1ctkGApUIgtDNLn cGFkZmwzXGNscGFkYjBc O9qnXWIbSrJiT4PbuLv1 MDAwXGNsdmVydGFsdFxj oPEsUJV8DBPjTYBxZKMw VOW9KNBwRtNbjnWpAMrc bGJyZHJiXGJyZHJzXGJy QMI4MWBeWxKvvbZrXQyl bGJyZHJsXGJyZHJzXGJy MQL8RUDxFkErkeQlEUly bGJyZHJyXGJyZHJzXGJy JZA7CTPlToCnvlAiQTxt bHBhZHQxMFxjbHBhZGZ0 L0gvoZZtKXHmUPkwaBHt LMXyI1splFVnEIozQPFp cGFkZmwzXGNscGFkYjBc Q8hlJTCmFyYpG9AukAy7 NjAwXGNsdmVydGFsdFxj cXXtDJY9OCJyDWLpPSDm ACK7YYLwBqQvdlXhWPcg bGJyZHJiXGJyZHJzXGJy HVR2BNYmDkRevrDaWWat bGJyZHJsXGJyZHJzXGJy HBF6IHAhOzKeteVsRPqz bGJyZHJyXGJyZHJzXGJy TVB1EMPxBlHcgdAgHVbc bHBhZHQxMFxjbHBhZGZ0 F6fasUQfGVRlAExwbGLb VRWoG8pfoYHgJFuwGULt cGFkZmwzXGNscGFkYjBc U4ilAGQzHpViS1DvsBf6 JjBwHKFbvmFzhI33Etvm j0DmJJMgVYJ4CKxmLBwn bFxwbGFpblxmMVxmczIw IPqrjjpfCJXtEKgcR6rw LnAbINAioCdeTGdbm0Gl XGYxXGNmMlxmczIwXGIg KHTnAQMfoT5cSquiN2Us pU8xLQefOsunQ9bhXEVu o1WdmJ0aWRsstFSkqnmy MVxmczIwXGxhbmcxMDMz FDfmK5vhCfUxXUStuAdw EIxvd4HpFQAjMKSrUxjg sbKtOZk5pvGlDCQfeVjg lTTsHZlpmaWgdAjip4Uz ibWdeBruUEDhCSv6ezSa edszqRi0kQVymVujVODs cXhnwW5fMtXmRnCpDFqd bGFpblxmMVxmczIwXGxh nlfkAHTcIXmeK0voPqQr QXUmyDanXCnof8SvJECk NCOoJceciyUuEVXsQ02e bGVjdGVkXHBsYWluXGYx XGZzMjBcbGFuZzEwMzNc aGljaFxmMVxkYmNoXGYx OMlzA0mtOiMrF8JfPGRh MjAwpTJsR2utP2FciQym YXJkXGludGJsXHNzcGFy QVW9nUNcnsVhySHrnBEc TIKcCOupNBD3lTNbgpjf zTOclvoqBCuintM4XTXs YWluXGYxXGZzMjBcbGFu ZzEwMzNcaGljaFxmMVxk LkRjUJNgDUueJ4aqQcUp A2EmKIKwQiOyXcFJENZe aXZlZFxwbGFpblxmMVxm czIwXGxhbmcxMDMzXGhp Y5mxBqMqUEGjpCsqKXvj d3UrFWZfFVXtOrlbzxAz OMt0ysZnVDKypDfmoH78 Fzafrv34FDMiy9xtMQAr A0BlyOWmQINxxHCkQRrt MDhcdHJwYWRkZmwzXHRy cGFkZHIxMDhcdHJwYWRk ZnIzXHRycGFkZHQwXHRy rAIrBLI5G3p1hxVlOPKn BOr4nhReWVWaXnRnyJCu CMT9YTg6GwjzaaA4gFSk Z4c1UbdjakImCBmvqOWr tb12DFBqdbJvqGSmiNus wRDbHJU5XQCcSIAeLGDu FRY9WKSqFoSuukEfWRol bGJyZHJiXGJyZHJzXGJy QMK2ZTGlEbPqsjNyWHpo bGJyZHJsXGJyZHJzXGJy WVT1IOTcVrYtfvTbFKqt bGJyZHJyXGJyZHJzXGJy SLA4SXZjVbUhjrViKCss bHBhZHQxMFxjbHBhZGZ0 O3aitRTcRBVsLGvfgNHm LHFuO5qecWFmPIhdEFFj cGFkZmwzXGNscGFkYjBc Z9ycUMGqDyXmP2GpmMk2 MDAwXGNsdmVydGFsdFxj mLDeCSG7LOUcOGPxVEOh MXD9NQIiJnZzyzYhZXdm bGJyZHJiXGJyZHJzXGJy GJB1YMPiHxUufjSzBYoz bGJyZHJsXGJyZHJzXGJy SFL5GTIfBnAoscZjHLnk bGJyZHJyXGJyZHJzXGJy ZAQ9MHXzPqIgeiDwYRvb bHBhZHQxMFxjbHBhZGZ0 Q0nilFHmSFAhADzzrIDa RNJmT0uqdBDhDQzjWZHh cGFkZmwzXGNscGFkYjBc B3rlYKQgQxAnX7PcgCf7 NjAwXGNsdmVydGFsdFxj aVKcEXM7UDBuZYMtIWFk RXJ7WBUjQdPmweUpNKfn bGJyZHJiXGJyZHJzXGJy WZS8QMOmTgZflyBfXKvv bGJyZHJsXGJyZHJzXGJy QVQ4XLHnVuClyoIrHVuf bGJyZHJyXGJyZHJzXGJy WPC8WZTtGmXbafKqQYkr bHBhZHQxMFxjbHBhZGZ0 U4csmTGwIYCgVYktcWPe EUGiJ5rirATxCCleAHSk cGFkZmwzXGNscGFkYjBc U5fqJFKyYkHiJ8JzeVy7 QaQhCPJdymBxsY40Zana b1ZtPAEoEAM5EUkzLTef bFxwbGFpblxmMFxmczI0 XHBsYWluXGYxXGZzMjBc bGFuZzEwMzNcaGljaFxm REpnHrGuYTWoYVniD2sw HpSmF6ZvBXTyNpOmFA6p BfI0KBVeBMwjZTJ6MBLT JSMtCBBGE9UGBfcdOXXW Y3WgpOnscU7zBkFpBxVu LXysCE7lKTWdK9hbjFQa BYAcGTOpL7jaYaTsmB2l aFxmMVxjZjJcZnMyMFxs dHJjaFxjZWxsXHBhcmRc jB59Fveyw4UkKLYyGVX0 MFxzMFxxbFxwbGFpblxm QOnzhgJ5SYEjBNjbYETx XGZzMjBcbGFuZzEwMzNc aGljaFxmMVxkYmNoXGYx VEezS8wlRpLbO0WiUALu MjAgMTIvMTYvMjAyMlxw bGFpblxmMVxmczIwXGxh pmabTYIdNTndB0whQjPm ETHxbLheMDlbd3PnKGJb HISvZylxrvVxNIg3miGl XGNlbGxccGFyZFxpbnRi dNkel3PebtTavCtgTQHu XHFsXHBsYWluXGYwXGZz LlJffOxzjR0hJoLiEdPl IUnfQP8jKAZvB2gypLWd OMMnCMUaT5zlHbSzjW7t aFxmMVxjZjJcZnMyMCAx HuP4XsPrJuUhiZfwbA3e WtHwGzBgMKrjZQ4aXCPu S9efkRBpAOKxGNGmH4xr PjLpvO7jzZjgDCvjDcTx ZnMyMFxsdHJjaFxjZWxs CQklyIIrNFXed9juSURe SEIvpWEbTIQ7uPZehbTo pSiniUgazN1hEoSzVrXj NFxwbGFpblxmMVxmczIw SHidzqzwEGEuNYhhC6ht CpNhPQHqnRynBAwhx1So XGYxXGZzMjBccGFyfQ== Addendum 1 (test code = a0vepNHdZALltYCkITSq 37) VvjwklPhQVFxsSAyF2Sa mdthXOtnRX9nWL0okRep bEAqoGPhJGXcYpSph9wi t970kGKss1dlUWJIHGoe RXZQKOo7r6foXHQLefgm fDw8oWcxR16be1M7Hqjb A21biLEsUIN8FDChSCAb qUPpSIEbFSX5QNUtjKUi S0lcPTRkCS4hjomfZGqi GVxtKNZcrSX1WKDcjHFc J5ViMPObEYghTGAfxkj5 GuDrFw0ptYOjxSeuHJdv YXJkXHBsYWluXGYxXGZz MjAgQXQgdGhlIHJlcXVl d1Eps9KbuBmxXTFvJEQ4 jC5wORNviFVaI9qannJ6 kHYlKl8zsU85nV7xEXN5 uOHpEALuv3ZsVPEgDVGq i1BrIGReMB2pPUazjMNd gCEsbIYjVKX1XB8EMXQz GIXdr58uWvBwtLCoYUXs vaFioLIxHCIuCAI7lZ6h ciBjZWxscyBhcmUgbmVn BIGqrnBmJe7oOFmzbhDu VLFfCHNhvRLutT17nn8w iDC4p5JwKU8dC9VySICi EEo4k4wyGdYnbOPkMHUg jhAcyCAoOUCvDJA3sL2x szAaELofgoBdeaYfrG3a aXRpdmUgIGZvciBjbGVh tbYaSQ3FCETZNRZwTKO8 ISUoEKKgbBQkuW17uz9v fQW2c7CgYV1yU7IsODNg EWz6q0pkAiQqaDPoBXHe wvIUKJ6MFRVhM9cmeeJj MjJDMywgRGFrbyBQaGFy hRC5HJTBj02ofF8zRMSP e2RluGv5BZLAC51cMIOh L1OOBUxixNYogANfobQ5 aGFuIDFccGFyXHBhclxp DMObXMZdf4B3EVziRz5y fLA9sC5vMQEtMPI1JONy aXMgYXNzYXkgaXMgbWFu aDTiI7B4wePzWYU5RSZb aWxlbnQgRGFrbyBhbmQg oZUbviNoEN9pjl2apI6c AFdbCE37hE2VSW3SLCcu H1ixyjCuXhFFQe4cHTUo uMXnjOKuJa4kbLSnGS6m YNMjnv1sfXqlSBLfnZDm IHBhcmFmZmluLWVtYmVk UZWqLOScg3F6ZRZ7t4ga QfIvduHWT6tqMD80SBVm i19tFZP3h2W3ZRtxRTGc TX0aVIQjwZfpLPCqJbVp GAQgJOQ1JLI1aG6wZUek ePovMHTzo7SbS2vcmWQb ORM0DMNhWOJkOS11PqOn tDCvWCCcMXg3XJdoHYCa kPCcyiYhKXRuspI1a4Lx DIEwVWZfk05hCX7nf38l GHluD49sn3IxAzDka2Cn f3WiR5ukuNCslXqultJr kNHaGE5jMLNaleYgdB5l qXYvm1XjoWwhHPUaN72v VmftKTQeuI0drCBjppYw o6MmllJbQUZOIoytxRSv Y3BkD8XsEFSiJIQltcK2 cVOnhtOpMpQdOG0tYCRT MWpcEEV2MOflwW6dWUKx fUscVZi4sHYdzLPpqE56 EUWudtGhjUWwq1ZrH7Dj wEQpc7otp7vpHmBuSI9p jyWxb1DvMOA6ZAscnL1b RB8fIXHoqFJzfsOxvyLo nMk3TYe3wLXql0F7xOFx NAHhRKPaROVhr4JqXQrb jrVeirZ8jDNszXFjr7Wy VXSvIAXapJ15cY0yVO8j sLAhSV1voVIjj9XaO4e8 d2LkFSRkpOOsy1TbmE6h pksir3BnVI60XVfygVAm e5d1sLueNNn0dPIlSWOu sYC5yUHiuF34QNdeuiTs UcDmAL2cOGKrDFWxQKDl mxTtu7u7AAT6qK0ejkFn ZWxscywgbXVsdGlwbGll ZCBieSAxMDAuIFRoZSBt IYvurLIxWEJdx8PwCLxi DYLhKlmiFGYxVJOsW9RM KGJzCY2egYLlXBemDNKa clxwYXJkXHBhcn0= Diagnosis (test code = h7ukdSOoWQMgdZBuJUAb 34) XylxnkLeFCFpnJQcN1Jc fehdHExtSX3eBG3pqEgg rCGhgBZkXQNuVpIbc7sw p364wNVel0eeZVBBnbun kMn9qGbjI07uq1F0Shlq I9jjWJZfUDadCULsODtr lAZnONj6OXWnxWAprbQh GmXbEBPlpFRkgKP5WWUz GI3nullyRAluHLklAPKu uiO0QGVabTAyJ4PbRLWt GU1jqljjKVG0VUpcOZXv QNT7UwCyXYAxe9Rpleh1 MjBccGFyZFxwbGFpblxm czIwXGNmMSBPdXRzaWRl KVfiKtdCFdY2UsBeZBaw M2HxJNMtHzuCE6iDYFTk MLXQMsrwP55anJFwdATq SJ6qBDAyBgA7ZrTqWpDj GfwfQQYcP0HrZWBegkmt oNdhBMckoU34ZtMnUwSm i8JhRJM1raxpJWZoq0Kz xSdhwVEpJYdkDcE3CDpr zG91EaRkvTzcAlB9CFQF PXWXI9kKSKKHE6UFSjAA PBZDGV6SIFVfMRPFPTPD OBHEQz4tDUkYXMKwDNNe D50evLEpjIaiNBPuxOAi XGxpMFxmaTBcbGluMCBN RFcvRkxaIFxwYXJ9 Comment (test code = i4ymvBZqJNGsxNBpJMWj 9835) AsgqvzSvBRSkiANwD8Md qnhnUHuxJA3oIL0hvMbo wRRjvGJvGZWkXfIll4vv l811bDGtd8epQZSNvsnc oKh7uUffI43kx9U5Aaua J28bsPViXYX0WSPhFOXv tCNkXFSxCON6EIRmcBZi Z2ufBBEbXB9duebqJZyw PBvuZIYxwKX7BQMbsBAs L9ObSYIvEDfqGNHlgdr7 KjGzVo8cvMWfrLfeOVln YXJkXHBsYWluXGZzMjAg Y7HinKo5zITzAQnegIZy u5ije5KwC9nbuVupOBfo i3XriT8pTENwymFxfn0u ZCBieSByZWZlcnJpbmcg kN9llJh9nZMxb25wg2ax opR3bCB2OOICGtEbmUnq bGlnaHRzIHRoZSBlcGl0 aGVsaWFsIGNlbGxzLCBh bmQgcDYzIGFuZCBwNDAg gFkhlLctT0u8owX3uRFk bXlvZXBpdGhlbGlhbCBj STmtis4tLQJiIYNxf3Jp fC6vi0o0WIHjHZZhwC87 ve6hpEYyo5M0dLSnqMZt k7OtnJ9cpTm8RNDsAjP0 bCdbOPEcFNPstBYxF2D6 aI7xDyVgjGGrcP== Biomarker Block(s) (test q2cmyPHtOIKivJUoGKFb code = 9841) JpggfmYnKXDghOSyB9Jy yswgUTnxCY3zOI8gtRge zGEzgCAwYJUvRoRjq7wa t886gFKlm2fbNUTJnqph iHz4sDxvB10ud8U6Wlxx D0miKTSlDQoaXTDvUDpe bOPbCNq5IKIkzFDtqlMs YlJjLGPazEWkwOS2UVDj RV3zegbtMUbqEHolELRj vtH4PBJbvBWbD8HiCOWu DN7utudsPBC3VEiiXUSq YOF1FjUvXWChm3Yiobh7 MjBccGFyZFxwbGFpblxm btYrUOG3nR4nKOAhh0Xd OiAgXGNmMSAyMjpJUzE4 NzBccGFyfQ== Disclaimer (test code = q0sxnXHuGMQyyCByXqDr 9889) MQFmAKSnf6fbOEXwaUDw ZzEwMzNcZnRuYmpcdWMx IKYzEoFyk0jed212lAEn o4dlZCFwMhL9nOMzUPBw bHKpC354FOFxYXcda3yx d3QvNDAjrZBye5J5CFTV anqxlGz5fZpdX90br5J3 KgzlZ1fjXVHoNGVkT0Zn FI1nUINpJnq5PTN4JMV1 ZGVfACItI1BeDR8hMMEd kMLoKDy2d3tlqKgwRYAk MJX3w4vbEVsbadHsDL2x qt5wvLi2z3cvupNzZQJt ZUIahKZNINKxV1FlsCvy Rr7uiHv0eDflCvkfWHX4 Cwf0WJ5tkj60ljk9mRtq LBOurtovDoO9TGaoEDNr gqumRVa7MQoxCFYwcDW3 FAJpeFCqD5IfIGZvBK3e jqy1SCE9TThyPBMgVjB5 NDBcaGVhZGVyeTcyMFxm m019PAB1PiBbAB6dR5Hv s7E7iA2meTNvPPPjqLSi VeYnTWFnee5faSUjIRku y4PbCLC8bkP2tPWopLGj CNGaBR91Xppoh0MhDpoh FIS5FZXwriBpl6Ifs7fm HfYnjzNeO8fpA1PcIVTy CGJaBUFfViKuziVxi4Le w2BcpTJhbIj7v7nzEGUi KGMziTxhh8cuJTV5GLKq B7A7vGJux0gxBEjhZHVn qKO6nwK0FMJtoDPnX2Mi jI6fXOYtKJ1mvuc8z8zw KYL2TRyvIPDzVxA1owT4 NDBcaGVhZGVyeTcyMFxm o529RHJ3WgDrFGCud8Qx C5QabUnxC04waKawW78p VWOxqWtxkA3zxPpnqI8v ZjBcZnMyNFxxbFxwbGFp mlerIFwdxiH1KCtkwmtb JVCaOVweU0ejTtBhYTZp xGsbPVmhp2ByPMFyKEZg EtmyouP6MKUEi82mXJQm j3OaDMWthF8mbRRgODxb kvZglRB4RNzsaeLlMuFa ahHsUQIftF5oETGhPU7e LQWsnbVmbw8zweXpVPTn RHUbV9ApiaxexJrjhcJd TUVmvp3hqyFnMUL7AVRL GZ0HZWCvACPkw91xTILw oVntjV2pzQQgtkXlJBBq x7PwqO0bdUNQALJlF1bw NH4sQDmww3RlqCZjhQTp gEX2JEGdc9GzHgCaryHt pDSegRCyH2EubJniX1bq SRSmMVWocdHnoZXly9Qu CFVuwMH4aWGkUD6ZPbNF d79dXFUhDTSTbjKlSGJn pBohrFC8ijI2lB0eFyRM ZiBhcHBsaWNhYmxlLCBj z406xg6odgW2RTGaVGZi gauli4FbINEkHUClqO42 QMGjAYTgxi1jiqbtgBEd nvViS2Brcdj4fK6wWJMb YWluXGYxXGZzMjJcbGFu ZzEwMzNcaGljaFxmMVxk VaFrVGNmQFltH3myOuPv ZnMyMlxwYXJ9 [facility] Outside Interpretation 2022-11-27 23:08:26 Test Item Value Reference Range Interpretation Comments Materials Received (test [id number] code = 9973) MWBfHMZbg8vzKUNluPTr ZzEwMzNcZnRuYmpcdWMx SXWhTxPqn1ksb668rQSa i9roQDIsKuH5kPNoXEKt iOMzU347KCZxXKply2qc r6WtPGNhuVIjo9R7CTMU epobsAu2lBtkV67wo9I2 UryoI9upTLXrUSEnY8Qe AD3qQXYjPfg5EPM7BVY7 SIRhTYMzJ9TqCZ9qXOMi pKYkNZw0b2tuoLjjNDQi KWD7h5npAVosxlEkWK3x bd8ccEi8b4ytjxWiRCTz SSQzyBXKLUJlQ3CqdSme Gb1ewDo3wSnjEccfLSY8 Zuu7NI3lyr59zjc0uQkw OSMrjyjeYaK2HTjjXQWd szaqJAp0ZUthKFZuqBuy MFxtYXJncjcyMFxtYXJn wRZ3MCVcmIDgB1WkAKAi TXfvCBYjjtm7FdOtIf4d gKMqmMalLDevh2kus7lx aDDxRxh4IIWaSoOrJjfd QHtwq9Vij0toKRUqfe5e UIU2fILqsEvbv7I0gNOq QYUbhFZcbmXhLNGvya32 gKZlgRHkaFBghl3yxuPz qMMasKUtJJJ6sSMmtdJh TRPriCBcJYSmQE9ugHNx QHMymH2gxhggTTLxXsXf gjjpOFJjcKpuauQwHx6x cPseEGV0DIriV7nrtI0d IjY0WIdnU8utdL2zZKr1 TDofyUS4OURzbY3kVJ7a ugeht8nmExMlFJ7fmnhc j4nzMoUhWV6oldz1n7kz PPL5TGvwMCThZaT7siP0 NDBcaGVhZGVyeTcyMFxm b935HBB5LoTlDIXjq6Vi Q3IaeQvgO85dnAyjP21p FYQnpPvbiE0aeJmwhI1c EmRsDuDxRQh6wa13RUe3 xminwOagYHp7lcWcRFAj DUL4NUPkbPKfNOAxB3f4 pdReMXVyWYQ5CRPhlTQi GVAjC8u3lpQoXUB7KPm6 cnBhZGRmdDNcdHJwYWRk YjBcdHJwYWRkZmIzXHRy zUFipFSilYHulX3luFnb MNPuaSFdrS0fPHY5GUUb cmgzMjBcdHJoZHJcbHRy gu28YFLrgwDvwAOngTah sJEaVZY7WASxHUQePUPu NES7KEYxTvGkdsAxOMdd bGJyZHJiXGJyZHJzXGJy MEZ7QJCzEmNszjZdQMuc bGJyZHJsXGJyZHJzXGJy FWC7APFdCnMzeyBjOPlu bGJyZHJyXGJyZHJzXGJy IFD8COPeWzXjpvSoDQzf bHBhZHQxMFxjbHBhZGZ0 G9lmoVLmYYMwGEbyrNOm AGErI0xurRNjTJvpDRXa cGFkZmwzXGNscGFkYjBc Y5veCCEcSiKyH3JxzMs1 MDAwXGNsdmVydGFsdFxj fHEzEXW6KGVvEJDlWVPw JQW6RWDmQxYafwVpHNyp bGJyZHJiXGJyZHJzXGJy INA7UOLxDsZbsaNlPLme bGJyZHJsXGJyZHJzXGJy ITE8MSDlAgFejqXiJRcr bGJyZHJyXGJyZHJzXGJy DPL7XKFbRgRogrEsHIfk bHBhZHQxMFxjbHBhZGZ0 Q6dyiLEeQFToMScgjUZb VMXrX0jheTNxCOmmLSLp cGFkZmwzXGNscGFkYjBc H9nrFFFhQeObW7FpaHu4 NjAwXGNsdmVydGFsdFxj tVGvQOT0VJHpRTXcOHIh RBF4VFGgYdJpfwUsMAez bGJyZHJiXGJyZHJzXGJy GRM4ORKbFiAskfVjSPid bGJyZHJsXGJyZHJzXGJy NZT6OYTeByAxsyYmHWxv bGJyZHJyXGJyZHJzXGJy DHP3NASnDoXmaeHcVPnf bHBhZHQxMFxjbHBhZGZ0 I8npoLLrQBFrGZeyaUKy MIJbK1ubkQKwXAjdTUBl cGFkZmwzXGNscGFkYjBc C0vtWJHiYnKnZ2ZtsLo5 UlBiONRzopMjmU76Ymxo t1IaOMJzVYF6LHtnXYik bFxwbGFpblxmMVxmczIw RSbjwaxsEEEhHDxrQ6hu VfCmXRHeePrbNRqul2Hm XGYxXGNmMlxmczIwXGIg GKUyLBCorP9kOkceY3Hh jR3iEYttXcltW1ejSPNa p4JuuV7tUYubwTPbgmee MVxmczIwXGxhbmcxMDMz TZwzO3vfQeIjLEEmcIvt NTwhc2BmSRTlLTDmLaji kvVaETx5pnLpMGGjzKbi qOIvUKvckpQwnMifl4Es pjDgrIgmJXJrHVm2uaAl utmpdJa8uZOwaUtmFZFw rRqcuD2jQaNvLuBtAKfx bGFpblxmMVxmczIwXGxh qmmxOMHzNBzlJ2zhIeSq VDRqnQdhXUabc6ApFZWg KCHaWppvzvUlHJLpJ47u bGVjdGVkXHBsYWluXGYx XGZzMjBcbGFuZzEwMzNc aGljaFxmMVxkYmNoXGYx NLduZ6xwBfTpA2ZfEEOq WfYzzTCfD3kcC3YkoBkk YXJkXGludGJsXHNzcGFy WIE7dZWkirDnxQRjzOOf UAKaXZdcHNT7vNFtrnou iWCrebniADvszoJ3EDVo YWluXGYxXGZzMjBcbGFu ZzEwMzNcaGljaFxmMVxk AcCkJWGkCQahS1uvKhQv M4PhOIPpPdJsNsZKIAFj aXZlZFxwbGFpblxmMVxm czIwXGxhbmcxMDMzXGhp G3nrDtWmIOTrfNgiNJwq r1RhRRGnSJYlFagjzkQf RNh6uzRgINIjwMjhzB30 Jwffyc31ITSrn3syAVXs P8WdjUQtCFSxvIHfJYac MDhcdHJwYWRkZmwzXHRy cGFkZHIxMDhcdHJwYWRk ZnIzXHRycGFkZHQwXHRy wEGnIZZ9G7s4vdRnQFRx JJs1jkAySKMmFdFdxZDv MWA2FNj3YazsbdJ2lDKi Q8d1MzugmqLeAAlynPFw ik08DKXyujDqyNMwmYon kJMqPFN5TPVcJTHnBLZz AFF6SIOkOdRkkgAaVQuw bGJyZHJiXGJyZHJzXGJy JEX3KKKiKlXixwYvZNuu bGJyZHJsXGJyZHJzXGJy LWA9MAUfAwElzkIpVNbv bGJyZHJyXGJyZHJzXGJy UGD5WYUqFmHciqWiPDay bHBhZHQxMFxjbHBhZGZ0 F2xbpTPfGXTxKWemxIMk MLAaO6wqcSQaWHjoIYZr cGFkZmwzXGNscGFkYjBc A4sbFYYrMpNlS3IizBv3 MDAwXGNsdmVydGFsdFxj hDZiQCR0RRLwYXVnCTLu USC8FNTbXmOgblQgOPdd bGJyZHJiXGJyZHJzXGJy TFX9LJDfWxGzqaRzXTuk bGJyZHJsXGJyZHJzXGJy AYM9OXNnRsTdwiPsBVnw bGJyZHJyXGJyZHJzXGJy HIS2BOFuYkMuwlEeEYhu bHBhZHQxMFxjbHBhZGZ0 E8gtwAGxIADdSRstzEOg FFFmJ2knaEMjPWmhMCSf cGFkZmwzXGNscGFkYjBc S4jrHOLjCrHlA0FbzRj8 NjAwXGNsdmVydGFsdFxj aHShXRU3AHLkTXBgXJEi WVN2AYBqQhEktlCeWTai bGJyZHJiXGJyZHJzXGJy AOR0OZEvQoVjlcKyHXyz bGJyZHJsXGJyZHJzXGJy XFR2JTWlZxGijeXlNOen bGJyZHJyXGJyZHJzXGJy DKB9VOUoIgFaofXtKKjj bHBhZHQxMFxjbHBhZGZ0 L9fqoHZsSYDtRNpvqNVp XQFdA9dghROoZDzdMSNd cGFkZmwzXGNscGFkYjBc V5ldBAJbPrUdD6JncUx5 LiWmWOVxdhAbcD03Qlxe z6FiNOBvKHN7HPulFXwo bFxwbGFpblxmMFxmczI0 XHBsYWluXGYxXGZzMjBc bGFuZzEwMzNcaGljaFxm ALppUqNsQQViXFloZ0cv JzNtU0AsLQStIjYqKO2u CxC2MCYjKZvaXPN4LNCG ASIhCUJHI7HZMzykEQUB V9BkjDooyQ0vMiZcAlPg VTimMU1pWPUeT8gowFRe DKSpDFSkY7edGwSdiU3s aFxmMVxjZjJcZnMyMFxs dHJjaFxjZWxsXHBhcmRc mO73Ewefq0BaPSKxKQU4 MFxzMFxxbFxwbGFpblxm FZbrioO2YHOrAZutQSBn XGZzMjBcbGFuZzEwMzNc aGljaFxmMVxkYmNoXGYx IXxvH0bjYoWfN3QhOSYw MjAgMTIvMTYvMjAyMlxw bGFpblxmMVxmczIwXGxh kgabOCAuAMhjY6zvQoZp SAAwrJbpVFxej1EaEBTd CMNyNduzttVcNYj7hyDd XGNlbGxccGFyZFxpbnRi mUpyj6XxaaArgUyjRJOp XHFsXHBsYWluXGYwXGZz OdUbwUjqbI8fFjRbGfIb EGfkEX6oVFAcY5ecjPYo LSAvVNZkU2pbFoOqsY0y aFxmMVxjZjJcZnMyMCAx GcT1MaZkIySncHvjkK7j NeSdJsVdZUdwES8tZBXo F5ydgKZiPKBsFIWsY8an DvIfwG7fsIctVWtgAjOy ZnMyMFxsdHJjaFxjZWxs RJwpbDUaILLda7jvBPNj PVNweBCaQPU6vQUcfrPq iFfukTxulT7kXeWhInYt NFxwbGFpblxmMVxmczIw AMzuohxlWCDlEIuxF0gv IsBlFCZhxGuhOLulx1Sw XGYxXGZzMjBccGFyfQ== Addendum 1 (test code = g4rowXFtKLVkvODpKOZk 37) IymhwvFlBRScyTMvS8Ll xkjuGBlmGX4yZD1bpYfx qJLsbEMkTTVeKaWqh5jp g883mLIio4odIJCYENyh QSKKMTp6q3fvYUYHthga wIr9nCwuC85qc1G8Vzqw P51fiZOhGRP7WBLiXCXf fZPjDUBiFZG2MFIeiNEm B9siPJGzYZ2qbosuZPpl ENlgYPSboBU5KDEjjIUb Q1IqRBLnXKbqPZSaxar2 BhTsEn0zwGCjkJykRDcn YXJkXHBsYWluXGYxXGZz MjAgQXQgdGhlIHJlcXVl g8Ejf9AkiZroHRKjHIM7 sX8lIKZmsSWmW6dpayT2 yJWuHt4drN23lR9kPGO0 gIWkRABvp4XuJHCuKOWo n5IhQDGqFP7hLQnujARd fMRiyVUtSIB7BB1YZPZm KSWmh57hZgQemBJsCVVa quDwzTCxNFJaQBN1zM7e ciBjZWxscyBhcmUgbmVn NTYjzqBaBd2kQDcjhtJg TIZpCWTasMOzuP63hd3h vDJ6a1BdSG3wT0PvZAXw FXo8h4oiMtJybERtVDKg ggDceACtUBBdURO9gL3f ruEuYXwsmiHbbjMqmL6w aXRpdmUgIGZvciBjbGVh vaGfRK1YOQSFRJFuOFS0 QEJoRFBmsACamL87oo1n eGJ9x4XzPW1aA1KnBWXo HEz4h6ngAoHzuTAdUJXm lhAKUD1XMFFsI2sxfhWc MjJDMywgRGFrbyBQaGFy kJJ3TRKPi89hsQ6fNASU d2KwdTa4ZKXFV72wMDDp Q7PYPZsaxJIpsRNfxhP6 aGFuIDFccGFyXHBhclxp XLOuYEOue4U5TZrhLh9o uOG9mQ6hHAMsDBW5MJVw aXMgYXNzYXkgaXMgbWFu xDSaM2P5poObXFV4CVOn aWxlbnQgRGFrbyBhbmQg aZOuaoYkSH5rmq4qmQ5b YGmnHY21jC4VZV2BXIqr M2pnobYhNzNKXf9hZQEa hWWliCVnWa4scYBzRV9b YVSwkw0ugEuqEJQvqGXw IHBhcmFmZmluLWVtYmVk SGTlAIWro3T6QQO0l2gk BhSxyhILE2nxJE30OBWc d79bNBR8f9Y9NKtiLHHq CO3uAYLvcNfwFBRnWiId XWFtBTG7KMQ3uN9hCTrk fTlnACVoe2BhI8zhfPMe FVW4SFEeNSUmJV82BnPs kAShJVOfZKf9JYmmXICd pTCodxLzVPNwlqG7b4Bh KDRyBMTar91sVS3dw03f ZAreW18cm5YpBgEfh5Kb a8HcJ4shjEIxvIkdfaDm sGCvZJ0aRXGfnzBlnA5u iAShx2LheFinFJWdT18n OjmnGKDwwH7fdBCwxzVx k7VigvRdCDIGMqnksDJy O7OjL4WtGCHyNVIrihW9 aLCsofJaTvGkER9rCGKL OXycOWB9MDjjtK0vGZBi iQehPTl8yARzoQJeiH94 ENKrihKnaZHgl9PoN7Kg hLEqt7fic3vaWeUtQV7u xsJmk5QmOFH7YOboeC0m YT2vCPWlpMWdmdCscyNd bDj3PXk1kCEdq8K5iRTg KQFdKPDkPWXdu7BfPMhf ihSyhuW2sGBnbYCrn8Zq ZSRyDOObrZ92dN5cXK4j sAJyVV9gaDPjq7UuZ3r7 g7LbYEUhgAPgs3YtvU6c lzgxo5CaAF48ZCbxwEMe u3l9yBnuSPr6pRHbSACv wYO5jWLotW45BIdryyFj XeDfFH2dAVFnKKHsIMNo htMjk7t3AAD1iP8tnjJb ZWxscywgbXVsdGlwbGll ZCBieSAxMDAuIFRoZSBt ZIqitQVyHQGer8AqMYbk WCHxFtleGEMiQMDiX9RK WZTwXN9ymSWyKXzmJQGx clxwYXJkXHBhcn0= Diagnosis (test code = d2bawANySFQmlTNdCSQi 34) NhppvnUpIMIgrBHeY4Td hjfwOHfcDI6jFS0zaYjf oBSinKTeXSArHwJxr8ci v533wCZdm8jtAUITkrai eBh6iCkvI29kt4E4Ivum X3iyHAOnJSlfBPCeODtb jFSrKLr1SFMvkREtwdVs OlZmPGUlpNRyxCR0CGDr RO9hfwqvCTojZJbvLFTs ynZ2EYDyyJUjI8OhRTZe NN6slvekBXX7JClaTJFb KDJ4RcLaJZRov5Eueea4 MjBccGFyZFxwbGFpblxm czIwXGNmMSBPdXRzaWRl BYzcQagKLdE9RdUeBWvm N3JmMQClEvaZP0rSBZNs NDSGWfldP08bpGFxxANf SD1dDXCvPbT3VaLeReMy LpyrSVRuZ4HcZMNvkuiw cTuqUSbziS20BnSaHkAf c5WuWOF3zpctUFZvk7Ak aPagxAEcVAyfXkD2ZAhc sG96QbCmlEfaWqG9OCPE AEFGH9eZFHZPZ2XESjJC SGRONS6DDZZnVKTEHVKP OCNUJj3pOIpBTGZyLEKb Q03tjHVjpIjeZLNlzKWf XGxpMFxmaTBcbGluMCBN RFcvRkxaIFxwYXJ9 Comment (test code = y8axaBFoALYwqZCsVTQu 9835) VgmzsyHeCLRpfNOqT2Nq otlyYKylVM3nIM1plHwt kJBxsDWmVDSuRfObr4tg z788zNLml6esGMCOzflq rKh2lEbaG44zg2Q6Dqgd O45muNIvDEL3MDTaKTIv fAJvIAFiLOM8WNNpuVWe Q0hfEBEpHU2uxetuMZtp IBvdUZMucSP8CUCpsMCj C2TuEUHiKSqaKRUaxzd1 WmYbOc3ihUMidYobKUfw YXJkXHBsYWluXGZzMjAg H3BisFn7hLSrTLezuZYc h6bfh0BmB6rtxCtyMKfa c3HoiZ8lLMLsphMbmm7b ZCBieSByZWZlcnJpbmcg tQ8zfZo3eQGeg40vg6ey mwZ4bLV1GTEYGoGvwTeb bGlnaHRzIHRoZSBlcGl0 aGVsaWFsIGNlbGxzLCBh bmQgcDYzIGFuZCBwNDAg mJipfZggC0w1irY0pQGf bXlvZXBpdGhlbGlhbCBj HYbloq1uUKQhAGQbd3Xx dJ1vu9u0BPNxWLZrtB12 ht6teVBsz8S2fUZckLPu z8CveB6yyBy1ULSeXoB0 qNxmIBGbUGRfvJWaZ5Y1 oV6jHpEraHAdiH== Biomarker Block(s) (test e1ymjXOxCZMpqQLuIELm code = 9841) QsfpxrXsGMAgzEQtV2Qo axczYYwhKN3sAQ5cdZxg uQKwmGUtXPNbZqZgu7ta d715pHEqw0jwCFFNohdt lKv5iBzhX00kg8U6Bgau V0zcXIPvYSlrJEDhQXap uDFpQKk2DWMvqSAkjuGs EdSdIENxkKFnoQI1OBQv GU6zninvPRuzZDckTMFu umC7RUDxsFJoQ1BaXACs HI6zogseJDH8MSrcCDOe QUE0VoTtOAMvq9Knczk5 MjBccGFyZFxwbGFpblxm fdGzGKI9vM3iCPPwu0Dh OiAgXGNmMSAyMjpJUzE4 NzBccGFyfQ== Disclaimer (test code = r1npuGNwQXZvdRIqQrWg 9844) DBWyHWGyb4zmBXJmqZVd ZzEwMzNcZnRuYmpcdWMx GYGfKaUii7xsb067tWCi e6gjNOSzVmV3qXRfKMZd uSGvR150SJBaNZrtv2gs t4AvOMXflBLuf3G5LSMM kuikcYn7ePgiK78yc4Z2 DlhaY0bfEIDoRBYlR2Om IM0pVFAyFpc7WLY6WSO6 DNBzSGEkQ9DdSU7zKVDs oQHxRNs4e5nniSgvZAHj MLV4e4gwSAemrvIlYN1f nl4yuNr8b2jramMrDYRj DLLbsDBGYSTiK0ZvyZoh Cf0omUs4bIopRzhmXND4 Aco4BB2csz26mnt9fSst CBPohnmsIkC1MZydZMMj mpuiWHv0OBexSBKzuAW7 ZFEkgHXpT3CrUYJrQT1t wya4EIJ2DDndGLYdGoW7 NDBcaGVhZGVyeTcyMFxm v507AFN5QuEnKQ9fZ6Zc s6E5lA2baGVhMHNlcBBu KhIrSWHdxn5vdBYkMOci w8VuAIN9qbS8zWPxvSLe NTPrWW46Qwriq7JuEwwt JVO2MVUprsHbd3Djt9xn NsLcprNpO7ukY6FyTDGr WBHsVYCfZqMckbDyo6Ia h5ZymMDpxYs0y1ivZAYb BDLodZxux8gtSPV1RPAa J0U1sFLnn7wbGWftEEMf zZF7iaV2RNQbbNOoO8Wn uD5kLUMjCK7wbao4p0wq UYZ3EJpwVOCqAdS1crO5 NDBcaGVhZGVyeTcyMFxm p062TJC5FhBrMLRzt5At U0EdiGcpE99ugVljV43g GDOukMfkuN7clOdbtA6y ZjBcZnMyNFxxbFxwbGFp mmpfDKaqgoR8TSoaoiyo HXCpFDduW4vbWmQbZJJr mDfwLTocf0RxVREmNYNs SmrlduR2KLQLi67sKMYy v0KhDQSkoX2cnUKuVPau ndXtvGA0EMqjwwAxNgMa zbHkNBXktS6vQJYmTG9l TFQvdxXtby0dicTzFSEj CBUjC9FwxunpkHinpuId VWQcjz5gchIcOUE2MYEZ JV6FKOEmBFRbb02hNGAr eKxhuE6zoKNbxjKtXDMc t3KljO8ekSPMWLOlT8bi XY0xMInrr6GjkMPsyNLv xPV3DYPvh5QnQtWwlkKs rJZthWFcI0TauJgtA6tc KLTwZTPsosWafSHtb5Gh GPIvyQX2xCZkXN7QUcBB m99kXAQvYREGsxQlOMDl mUaqrEG1qfI0hA5xZpCE ZiBhcHBsaWNhYmxlLCBj k813sl9tugW2OJYbASIb lchqi8EjNAUvTCAzlE87 OXXnAZRyye3qwznjgMCs kxShI6Dhjib5vQ5jFSKi YWluXGYxXGZzMjJcbGFu ZzEwMzNcaGljaFxmMVxk YuLwHCSfHAuwY4lyNpIb ZnMyMlxwYXJ9 [facility] AmeryPO[facility] MOLECULAR [id number] 16:06:41 Test Item Value Reference Range Interpretation Comments POCT Molecular FluA (test code = Negative Negative 61942-9) POCT Molecular FluB (test code = Negative Negative 20995-5) Lab Interpretation (test code = Normal 46750-6) [facility] [id number] 16:06:41 Test Item Value Reference Range Interpretation Comments POCT Molecular FluA (test code = Negative Negative 95496-5) POCT Molecular FluB (test code = Negative Negative 76279-1) Lab Interpretation (test code = Normal 51306-1) [facility] [id number] 16:19:00Reason for Exam:->Morbid (severe) obesity due to excess calories [facility] 1965 Sex: FFINAL REPORT MS, UGI, WITH KUB CLINICAL HISTORY: Morbid (severe) obesity due toexcess calories COMPARISON: None. TECHNIQUE: A hose wrapper abdominal radiograph is acquired. The esophagus, stomach, and proximal small bowel are evaluated with single contrast technique after oral ingestionof thick and thin barium using real-time fluoroscopy and acquisition of multiple spot digital radiographs. Patient could not tolerate gas granules, could not perform double contrast technique. Fluoro Time: 1.4 minutesReference air kerma: 125 mGy FINDINGS: Lead Housekeeper radiograph findings: Normal bowel gas pattern. Esophageal [...] unremarkable single contrast upper GI. Signed: Steve Swanson Verified Date/Time: 07/28/2022 16:19:45 Tissue [id number] 18:24:44 Test Item Value Reference Range Interpretation Comments Case Report (test code Surgical Pathology = 104) Report Case: [id number] Authorizing Provider: Dewayne Wise MD Collected: 01/09/2022 11:31 AM Ordering Location: [facility] Endoscopy Received: 01/09/2022 03:51 PM Services Pathologist: Evelin Wharton MD Specimens: A) - Polyp, Colon - Right/Ascending, ascending colon polyp B) - Polyp, Colon - Sigmoid, sigmoid polyp C) - Biopsy, Gastric, random gastric bx DIAGNOSIS (test code = v9kdrARqHPSfs1ugHFKilC 3220) FuZzEwMzNcZnRuYmpcdWMx IHtccnRmMVxlcGljOTYwMV fackVrDFRyzTYcH9Jbtaee VWblZD1aAF4jeCedxBRohQ UuPMSnFgMvi9hls860oWKf g9dpQBYKnrnvhUe1nDvtZ1 0cg7K6EhpdE55xpESfYZJ1 IADgRNWifEJxLDXrLRA3EP XxrZEkI2tqICGcUB0irovf UTbxNQzoPLPdoCR9JRLmvR WpF6VjONSpHSbxQLHlgqb4 CvDkHp8ajWFrpLwaKXdlWT VgVHDiVMebSPCuOxYlNC2d D30HR29cKZCVB2jND6CVG6 ANSWuUMltuTD2LDOZRT8IO KXg7CQLvzdp7YYOoPVVWBD XWDSFZVZCCUJ8HGNRmlMNy UBQcgkDKYlHHJ3tCYzoyE9 qWDT1VHTwxKX9MATGNV9AQ DOi4UEXawvc6VSUzYCFOTH WSFAGJYAOCCB2PVFUaUKLk ozfiDMDaLn2tO6BBDSUMOE lzA1rKHFTFP4TqN9XZT0wZ ZAIXQDNYQP7QW9jxpVLjGX RhYiAtIFJFQUNUSVZFIEdB V3NQR2BVZLgPTCDmzgq9WF BoDBCFCWaFRFjXZM2IJ97D KHYDCXIJGE2POCXPRPbAGD 9HSUMgQUxURVJBVElPTlxw SANdxZZjZJ4vJbQKSWNYYx HsYz4KZClYYMjDK7JLB4LP GzBIRTBOM48UW6EJTGWPQy GTQqPIT4GZDH1MSLIHWQlF S1uiPMX9t4tkiKUoSJHjvJ UxODAwMFxhbnNpXGRlZmxh rnwaHFStNYH7mgAcVMXwMB fdXDHxSCmhVg2ekHYhtWuv KeNpCVJhq7ihyyEOghixaF s0y0uzSBXmOxL5mERfWZeb F5ayulDhyGJjEIOwJXk9dY 28MVGjhM9heEVfBDrbqfOl LzQ9WHojUHLsRuI4OHWomV BkDIDfD6nkDXQmLSikQDPn AJwgbBYvTSN7vPnsd4V1gV VzaGVldHtcZjBcZnMyMiBO f9ZkQRn3vDbkH9VqPXKxNi I8bOQqAXXcCXawTUXkLPMq hkT6lZ57HCrbpoM9mISfk4 Wyj51ra558sZ3ywFUoPRN4 YTHoUJUzmRIaUMYfFZX5JI DbhYJqH6upYCRlBW7hcpwx OPpzFXlhNSHqtXB9MOSxdK UfE8OtTWFtXNfgBIGxxpi0 DdXkYo1nhZQxqPxgDLxfx3 zio4bkrELjJjd5AWShQsVv FccfKDkxt4Baf7ewOSVosw 5nBRB2eAQizYqyh6I7xWSi ZZRtmQJrIUFmHX4xrTRwRL AquQ5oyntuWVQcOaYqgrta UPJmqJlitgYrLw1eqLviNW P9KWigM7uvsY4xRhT8KEim L4uodT0rWKy8UZhyWIMsoB C2ydB2WCSehABnS5JtcM9x XDSgSQ1ximy2s0ucEHY9FZ ltAMYzLmG3uyT8OGIhmVGt UOUocDpdAMwpp598PQY0Kh DzDUDrd3KsA8VtiKwlK57o fWftA29iONTsqQgqtR5heV lltH8iTsLaVmGcNPanuVvd VL4jTGYxA6kydVIoYVWgEW TlA8ghSmPepO9qiLacQXvq coBjMBZuFmj1RWXczJKzFI LlKuw8CAKgUUUjC34mosfx FQN3bD8ct9ehy6JfUCiiSW H0BRZrj95cIRsinuG8NCro Qp43XVszRDP4OMdoFLO4uI == CPT Code(s) (test code t8gmaSNfOYAfjJZ6KqXxND = 3357) Dyj5xjb6BsmXYniGLeTOhk tKUdtrKywf12dUA5lV38ZR 6ySFReTzE8LUBzchF2Gup2 GQEoKQCxjYRbU091p5rpd9 taunXguWX0nWkgKIHcregb PiJ8RNfdGTBrigpzRRc3TJ shFFIlwLM9QZWrhCVtN2Hd VBTdDQ5xdom6SCJ2FVuoTT WqNiG6OODsiRHkNYDbuSld UOygw570EGU5KcSpLAPfcd AelUhjpL7sElWmWWZ1NIVy NVgzXHBhcn0= CLINICAL HISTORY (test a2hxrAPtXMEudSI1KlUhDY code = 3356) Ucp8ocn3SfnJNszALfCRdf vBRycsXiym16pRI1lM66JF 8gIOLtGzT7JRJcowG1Xtj3 GFWvJCXgzBUnL917g0ywh5 yayfAhaYF3mCczFQStfhqi SfH2JPqmKJZuumtrKOc7ER cuTXGiyFS9DNQsfXBtB6Yc GUIeAJ0jhbe9WOF0RXrrTX YaJoE5RPAllOZiATSyzWrj ZJrev344MEK4NrOpBCJqwh IysZhjyI3kHyIqRUWREID1 xy8fo79dyPMlVWYuTAIwIe p5kWSsaRAuNEQrCNEgh5c4 lRGzGsHmu2anqflmSCT9 SPECIMEN SOURCE (test y7bhvAQeBSYdyLQ1CjTuRJ code = 3377) Bld1xxu2BiuZKmvTFjLBkh tEAuamTtdz30mEL7jG91AF 5oRSDzZyL5EDFjffD5Syw2 XEZnESUgfSCwM893c8nnu7 siqjLjeZB5tDaaEKHyyxjd McP0YVopRSTjzdcwTHa5LM ngSOZzyXS3QTQanJTkV2Ej XWSsBZ8nxkj1ICA2LClaJN VaKtD3FXIxyNEuEMIjrFbw SOaiv991SZY4OpRkOARqmn LcdSrwnZ4dItFzUWEBXdSd NY9ecMQsLQOzkX2yNQNpJ7 n2C4EpV2LnZQcoH7vgwZ4m IUQmCDQZn0x7tFwgG50wk7 3nq7rrqR7bXPlydB0tTBLn GUDAoD7cd4zrPAyxe4NgpR MsIHJhbmRvbVxwYXJ9 GROSS DESCRIPTION (test d4kwvENdTBEugACcTrJfAV code = 3366) OzSXJvm8rnNERctXSkSuPt MzNcZnRuYmpcdWMxXGRlZm Pvm0jno466bVGgz8cjUPZH lmglgCr4x0veMIOuUhQ9xH EiSYgrN7lokyBypMNbKSVj LQm4xV63NQKmbS8miAYqIE bsrgTnMtA5BIedOCOjKdS2 UDAptFCjVLLzG5twLHWySX wgRCDiBHgjqOQwMQA8mMrr z9G5aATkrYVkaHijTeIaJu SbMUPEf2RhCJb8qWdaR0Aq NBUeHuJ1sSHsRYQdCYonJY YnLXNuuaM4fZ55MRzlodZ2 jSFdn1Ltl24de959eL2jeG YjRNP0YADhYGRtgPEqZVJm TXA5PFVlhNRqS2a4NhSilO LmJ2P6AzSceOLfP8E3BsVd zKXfZ8O0JdFknNPyIZFccT FkLm1fcACmbLPkmh3dcn32 EAT3r1EewIbhXOV6MUU2Tu SvDz6poDOdFODtGHSllBXb CPPeED6gkEIwEKApqR4nxa xjXHBnYnJkcmhlYWRccGdi ebLjGp4djDzfRBA6UFmnQ6 jrcJ0kYeX1MUjxR0yzrP7h KBc9BWzqxQC7YLPpmU0bLY 2sqgdbq7xkTjAjDL2rceok i9piAvCqQM7cmeh3j5qaJm DtCO5wsyiee9ckRhZcCWsz TAZyzwogOKIhq3WspavsPM Nic2YwJ3YslBviI90ijGki T99jIXNirZljfG0riUbcpA 5cZjBcZnMyNFxwYXJkXHBs YWluXGYxXGZzMjBcbGFuZz EwMzNcaGljaFxmMVxkYmNo DRWmFRxrW6oyGdSaDsNqRT BBLiBSZWNlaXZlZCBpbiBm b6OnAFobteUxTTZhgIIcKV dpdGggdGhlIHBhdGllbnRc R7M9adAvDH4uBTCpMGMeV8 XiUJYxG98uRCPayS8dVMKs WI9gMIHjg2SmtqRvqsdcK2 1ne39zwW8wfQIjWRBlKZRq p69ujRT4htIhYhIbUROpZQ InNP5oOBQqybCno6V6SMIk i2Q2VISyHYYdyJKgxaveKK 73YFtnRV57DXoxTH5wZWMy MpNHsKThu6VjO4yoKR1pdL Sdp4ZtcJp8aXYwTNoqVYQy aY1fiE7kYNCdXKojgfEzoH luZSBCLiBSZWNlaXZlZCBp fcAfo5MqVAukndQuBIHhsZ VkIHdpdGggdGhlIHBhdGll svYeQ8Q8ihXwUW1hBQVnOG RhP4EtDBZaI44kCZQeeN0h DKQyZP4lKUWsqGgks3mxJT MqcE4vNESjwVfuQjYtikVw P66er6ohwANvv0YiNxVbgT UyPKVak0LbnGZxQGFrlppc o15cvNA5pDTdsSIpvmCwJ5 beToCrhmPalHzbRCLen20p DR97SNxdLB0rINftNS2hOR SpPXBkNWCjDOC2XBBwAbT8 IDAuMiBjbSBhbmQgbWVhc3 WxbK7sMRZhHfR9YSVnMnC1 XIUqCePagONzhmRvQ5vyQA hwwUGmOMWtNZPidQUueH1h wcOlvvAtfBYuaNU7UMZqbK 8yyW39pkPglpOQNP5nuDid WVgylA5zLQNdSQXtR3Esnj PpKSkoHOJksm6tqYapIAoz XxVhHGRtf4g9sTR6oVOwwF Z7rEUhrGmcUcEqYZ1boBBd SG6hVEfnRIankhDts5HbTU 87bHGigkUxafNiMiwjd2Jg oMNrAmzvQYMeTCUzx19ydG F4jlQaBbP0HCLvPOVlqlNs NzN7FX7kzEdbtcZss0C1CB Bkw0S8NVLdQM2ptY4tOOyh IHNpemUgZnJvbSAwLjMgeC CsDuGzuGFrEeMdN83kpW8w ZO71SIznVF1gJTtgMG9eVK NtIGFuZCBtZWFzdXJpbmcg TF2oIMcdLR96TLqpIQ4cEK NjTNmbQSIcX3ZiV9C8PL6g VGhlIHNwZWNpbWVuIGlzIH V6Zu7htMZqUJWrtaF0b5Wa MMlvXFIiZhdwlH6zOBwjhy CzP7iWLTAwym6= MICROSCOPIC DESCRIPTION q0wgjGCgGEBosCS3IbSoVV (test code = 3371) Xbp9rll1DroZCzwXPmVRbm uFSwktDyil31mWV6oS76EU 6uHIXhCbL9OSLhhtZ8Tgs5 CSWxOGQowVZdH709k3dtt0 wgsmGieMO8lBnoUEHxlnmj IuG7HIsiIGTwrqrdLIt6WN gzEUPuqIQ8PHNfgMSrF7Dx ZZGqKO8jfwn8JQE0SRcuDL LzMyY5MRItbESkNPKelIhz WHreo730POM0WeDeCCIjdi VnaPjyvS8aBxUsTGWEKSVf RN5aCJjaD0scU3OeLYCbYE fgiUuwm6wdVV4xWM7frUhe srIjT7ihdRXazMIfctElVj ycPP9gMMJufrtcOIImUw2b Yi2rx5syjbpvlJYkqcCnvC 3ibLLoxBH8bQ3uARGeovKe f7SetxYjKB6yrCEwiJPzqB GpJNX5e2GhQLWjBINsuwTq WIhyL37vkpU0YGwtVOCwHO 8qXS8lPJbatVqil2YtG2Bs gdDhvINao89iT5HwiCDrqx OnttCfw8ThbyRiyiGnb2J5 eY4rYFO3DZaajh1nKEujVR J9 [facility] [id number] 18:24:44 Test Item Value Reference Range Interpretation Comments Case Report (test code Surgical Pathology = 104) Report Case: [id number] Authorizing Provider: Dewayne Wise MD Collected: 01/09/2022 11:31 AM Ordering Location: [facility] Endoscopy Received: 01/09/2022 03:51 PM Services Pathologist: Evelin Wharton MD Specimens: A) - Polyp, Colon - Right/Ascending, ascending colon polyp B) - Polyp, Colon - Sigmoid, sigmoid polyp C) - Biopsy, Gastric, random gastric bx DIAGNOSIS (test code = [id number] 3220) FuZzEwMzNcZnRuYmpcdWMx IHtccnRmMVxlcGljOTYwMV ptwkDmJOMirHQjR0Uqnldi BUobTX9qRP9okKeqgJRaoQ EkGRUtAoLog5xtq339hJLu c9sqIHCXyycacQc3lTziT9 1jg8P8WzbvN80wsDZbGHJ8 PVCiLLOcyHEaDBPwMFQ6NP LsgKLtJ7kgHAMzNA3aqkpz YAjzLIddGQWyrED2BIEbvM EgX1DbUNOlCDznGDCqydc3 AhXvRx4itEQejYgxVQjkAN WpKXSzMNvyOBPiPkZdIG8u F01TT24jEKUZY8iSH2CXW5 YKCUvHIiuaDS6SCAOAS4QP LVk8UPIdapw7RVMsMDPLXQ IMUIPDPAWPVM5DSQNktOTs OMQfrfXBRyHAE9zBXdesB1 aDGI5MQPndZZ8ZCLKNI1EY CHg7ODSxxtp9IACsPMRRLE MRGAOTXZIMSG5SBVFsAHMe ysrgTSDlVk7uA4OIWVMMGR bjD4zKWITZP3DbC7BSM8pG PXIWJCNOXX6FO2fprKBaYN RhYiAtIFJFQUNUSVZFIEdB Z2VJZ2JCPWfJAGVjbiz0GG OtNVXDVApZEHlQGR1UP85C LZRDDTXIRR0ISSWGKFlTHL 9HSUMgQUxURVJBVElPTlxw ODRjaPIzBJ0eZyUCSRDYJh EhZe4OHCeULBmAC7OBF7ML CiDXZRTKE50FE6XFYKSELf WTJzWSY3DHVD2VTPODSRxM H8lmTGH4t0oxtCHrFYPaoZ UxODAwMFxhbnNpXGRlZmxh muhjOSIkGLI8yaVoPRXuMU jfBOJaVMefMa1gyZIyuJab JtLxVACbv3fadhFQjrlmoO g5w8mpDDTjPkI8eMGmIJzk S7okvuErpIWbCHMxCFh0dI 19IPXijI1gpTWnAPmxdsQf QiE1FFpxSGUeFtG1WCDnrL FjZPAxC2ggZASaHOxiDHBy GHcdgZKxYBP0oKjxh9D8vJ VzaGVldHtcZjBcZnMyMiBO j6AlFVa8lCawP7XwIZDyIm Z8xWVcDQFaQJwxVELrGHMs xwX5uQ09HMzkwdI8tJToj6 Ftx19cb402lJ7buKEoCAK9 KSYoGOIylNQkVAMvAPZ1QE YkcHKrL9syKOHxFY0gudkf SSfzJPotJSFaxGL0UMEcaT IlS0GtVJQhLSgdSYZhwub3 TlWfLi1erSVvxHttOYcxl0 fxo2pikAOnAuy0WIEcEeWc VvrnPRgqb2Kxs9agZEPryg 3cPWF4cRSugYcfy7E9nHMn OSBrhFEyYBScTU4vdIAoNF JakO9mnfaeEZIkXgYoxdns JPCfeMsrywEfQt2krIxdUG Z3LIcsA6wjdF5dKgZ0MDkk B6ivuS9fFFi9TAgdUHZbhB U7blN8NURwqPFvK8VcwJ1a YPCxZA0sjjf6e5knZXW2QR dgRUPhPlL6naK4HMOsjUJe MNQklZxwHZegm698WGQ8Ut LjVXQmv1VwW2PxrQrhV29w eKyrH07iRDKmpUnsgX1akT fjzA1kZgLaYnUjONxgnPgw KW5iYOXwP1mamBUqXZBaVK YuT9ksPcMkzZ9kaOhyZDjg vhLkRYUmVfd6DCQsrOOjLN DqBqk4FBPbIFYmF58yvnjo OMF5nT5gw2ows3FrFUwkLU Q2ETHoz07wLXkxigW0MLnq Hi94ZBloHRF8FXzzOKD0pI == CPT Code(s) (test code [id number] = 3357) Zjn3llk3WisGXwaJZkOGhg sGAsksZwso81pPE6vU74UF 5wPQJxMaD5EINkgpG3Fjc5 XJZwWNDrkPTaH196p3das3 jbhiXbgXB5jSlpCLPulbcf BnC8TKdiXTYovgixKSq9PM viVOLoaRF4FUCjwKRxW4Dk BDDvQV7opob4FRM8JHnsPH ZrEdW4SRIbeBLsGNVjyVlw KJprf810ZJA1JeAsIPNgwd UpoYtcnV1xSuGkVYL7LPSq NVgzXHBhcn0= CLINICAL HISTORY (test p9ckxAYcKKBobQB8SvDqEM code = 3356) Cqj6umq0IckTSekEHvLAut jCFpxdVtcw23cPU3zL00HU 5tHFEuQcS7PHBtsxA0Ikp6 KZDlWUErkUTeL934i6upb9 uzqoCjeIS2oMjdWCZdoonw NzH2XQhrNPJotricPQo6QY pxOLRfqWF3DRFlnZPxE3Uw IGYnGD0qyzw1EUO5XSdkOY YcOaQ3PVUufZRlYMBelTpn PRztv132SXB3FrIhCLXduv KlpImyuN5lUwNrPQCXBOJ3 kb7ir65cgRTbHJGmTHWiRa d1hPMpfUVjAWYlVSNfd6n8 bJWtEmUbs8sqplmnHLT9 SPECIMEN SOURCE (test w5ohwGXtVROmiRP8UyQlBZ code = 3377) Uka0ikm0YpzDWmdGDrZAcq qGBnjnFwww74eVY0yD05IS 5eZAFiPtP1XCGkjmB7Swb0 MPHiAWTdgCLvS955u8sul8 skajXelMW8oRflJJNnxiph TrI1INcoMMPiqjiiYZf1EE sbKZPywPD6XLXkbLEwM2Tr KFVeCW2spfc1NJH9NVasVC NqZnA0EIOgkYAsNEHpqRtp FGolb626GQG7ChIqCFHyrr BctNhzkR6jBxErTSLYWiIm EZ4iwWDdOHAzrS7dOIPrK2 y1W2IyX1AsHSleQ2wtaY9m GABrOKPMs1x8vOqhC11gm6 7bc6cbyC6jAGvmuP8lPJPs XZYAjJ1ue8mfVEcbs1FeeX MsIHJhbmRvbVxwYXJ9 GROSS DESCRIPTION (test l8zebQMlJFCfdJFfPlDjGT code = 3366) OcFRDpf3jcWJSrvYLeItSx MzNcZnRuYmpcdWMxXGRlZm Ndi2lvp583uXIsd7ytIHCM cbjhnUm8l2pbDSIoKjR2lH HhYHijB9ddajTejWTsHBOk JEb4rH44QGIokU5noGVeEE keedZhDdU3YAvyMZUpJkX8 VHCzaANkJVFzF0xeJMZbIN lePTQbKQiicMCiSEH7tZyn a3U2zORtjNKvyQrwWdSsTm YwKTVVk0TgDPh5kKspJ7Cu XAQsXpI6lCTvLGFjENtrLI AzDVBzopM7dB07NApuchN6 eHTmt3Doh67fg407qR2vnS KeBCR0EQWbNNVdeQGlZLCb PLI3MWDthOCxI1k5UcOifF TnQ8J4RsAeaPKxQ9H5RcRt lLDyJ6B5HsFhaDYmSOGtbJ WrDr3npVBymNMvvm2hky88 FPY7q3YeiCfgBOB2BDY3Fk FfAc4zjFFgVFCkNGZrxACs NSYsLB9gxEJnUBGwzQ9qgg xjXHBnYnJkcmhlYWRccGdi kwRfHg5mtOuxMYW8FNtxQ7 ivdX9sFmI2PXfwR2ovgZ1z IWo6FBnjyJJ6VPFsiS0tQZ 8fmqhzv5huOiTmKC0fikhr s1rfHiEsNV3hhdk3c8nrBc DrOE6alpnyh3mrSjYuXAlj THApdnuhPTIqj9UhnzxrAG Xuk1ZvD1JuaDqdF69prMqz I74mCXAwmKltqR7tzEvunA 5cZjBcZnMyNFxwYXJkXHBs YWluXGYxXGZzMjBcbGFuZz EwMzNcaGljaFxmMVxkYmNo JRXwYQfiY0auGuBwWuDrHB BBLiBSZWNlaXZlZCBpbiBm v5PdKSqexkPzDWTvdXUkTO dpdGggdGhlIHBhdGllbnRc U4V8fjAoWV6oLKAdETJwF7 PiWOAjZ82wKPGhuP1pIXNo MT4mBNWna3KsdlCzwjhsL5 8rp42ymM0hoMRpFXDkMOYc y41ogEI6moXhYuTjQEPiYR OdPQ5gRZFlzaIzp6L6VNZh y8K2IQJdTYAnhTUocquqWN 72HKqwLB61XSmrVQ4fBKLs WrKNzFUxe7WwA8qyZE3xlT Hbo8MghMa6uRKqINtzUWBs xX8fgU2jZVYhVErkadZwfP luZSBCLiBSZWNlaXZlZCBp kaItt2KzSLmezqGbYHLjvF VkIHdpdGggdGhlIHBhdGll waSuI3L1toRwAY1cWVEfBF OfH1NcIDMsY26uFEPliK6w IYUiNH9nRTQcjRjln1rpPU EueO7pNEPeeYfdDwDyyhNj T24cx4iwjJGph2XqTqCfbS TaCFBet4GjfFBcMYThiuwo f70giCT4kTAwlLNoaxWaR4 soXcKqtlPrtWaqZHXnm18z BE65NOkgCY9lWExbSJ2mHP GpOTVtHMSuGYU3CSZjGrP0 IDAuMiBjbSBhbmQgbWVhc3 OkfJ0jMEMmLgX2SFWtCqP8 HAOoNiUefUPrtiKlY8wbOC xycAWdMDFqXXTmdBUrxL5i wdUmtkSafOVxwRD4TGNmcZ 4nrW81gmTgyiLFSH8rlIos BVadfC3hZZIbMVYkK7Yefw HzVCobJQLcxn6cnJdrPAkq GyFlTXUlw9y9nAB6mHXveQ K0eKSvzFxzRaItZD1azLHv MW8dWQkvGCeutvEjh0AwSC 32eZUdwtAfrpNyFpdbh7Gs lFLbMikrLDVcFMSlt59ohC C6txKsXeE5FDOhHLQhfoPh IzK5BC7xaAmfraExw8K4LC Ynk1S9EKBoMU9cjJ7pBFiu IHNpemUgZnJvbSAwLjMgeC GyEdSsfCPsQsGyL04vjG1d LF60UVktIC5tQQldFN2zAC NtIGFuZCBtZWFzdXJpbmcg QI8oSZmjNM18FAkrZE6aAV HoZWgiHNBjL4UfQ4U5FS0m VGhlIHNwZWNpbWVuIGlzIH A8Tw6btVYkWOVajvM3j1Yo QRhiUVBvWgrzdC9lIXawgj HvB0jWXRPghf3= MICROSCOPIC DESCRIPTION l2yzxWWgRHXcaKL3WrQyYG (test code = 3371) Mps0ujg4OxlAMvoANwOHmw kSYpdsJsfy68lUR8lX81WH 3cAGKeCuM0DHMkweR5Omd8 FHDnGSJehEGyY376j9mra8 rubkSgxSS7kRhoBAPsiaps SeV8LYctOZYugxaaNVa5MK jvNBVmlRU9RGIvvBAkO0Dw LEZoVN3ffzp1NIM0XFkrIH VzLoW0CCNaiXTiANCefMem KGmbc841HMS0UzFtZQLwfn VxfNpbrF5fHsOiHWWKYTBd OK6iYEzzZ8asL8NaKNJoAU kpcNosl7hrLT0zEV2aeEcu rcMqE5whhAHtkPRmxlVxZa zdFQ6yFKNfkfuxOSQnRq6a Aw7vk6hjevuuyUBrozSteS 2yzWEfjLI4iT0vUZUotyXf c5PxshYkSI2hxTGnxHNtpA AhQHU1c7VwJQQvPTIkvpGs ESqoF58oydH9ADnyZYLxWW 5kFP3pABgweOxjq3DlV9Fc kiUgbIWdr23cG2EalXUnfo DrstNvm4VmshLhzpVni3H1 dG4qHAR2EBurvj8fDHgpWH J9 [facility] [id number] 18:24:44 Test Item Value Reference Range Interpretation Comments Case Report (test code Surgical Pathology = 104) Report Case: [id number] Authorizing Provider: Dewayne Wise MD Collected: 01/09/2022 11:31 AM Ordering Location: [facility] Endoscopy Received: 01/09/2022 03:51 PM Services Pathologist: Evelin Wharton MD Specimens: A) - Polyp, Colon - Right/Ascending, ascending colon polyp B) - Polyp, Colon - Sigmoid, sigmoid polyp C) - Biopsy, Gastric, random gastric bx DIAGNOSIS (test code = [id number] 3220) FuZzEwMzNcZnRuYmpcdWMx IHtccnRmMVxlcGljOTYwMV bpvtTuWLYpwMLqK3Dqswyg NNhkCP6cSH0bxUkkcFKomG GkHAAbUdPwp2zhk139oPZx c8tuPJPUptuotBm7nChkY7 9on7M9AenjH10ckXYfZNP8 UIXzNAKgnGDpTXYxEFZ2XL DszTUpO6slCYZfOO6lobvi VLfeAWodQTIxjVU3ALSbzW VaE1RsTHDqCAxgSKZwxsi7 NiGoKo9dxSYvoGzuDVklCP CnQOMnHUakOIGuFsXeFZ6v K63PJ32kYFEMI2xBO8PYI7 KDZKoQQeoqIV0FFSZSI7SC QJd2AZXxost3RUJgJTECQX YSBBJSQEUCTC0WFKRxwMNx MBAnfqPHLjEEP4xLKpmnA9 tHSJ0OHFerOI6VYKAIZ1OM VZc7VSTbpoi1DMZsZHNPVF SHAQSSTRJUFX9HARUiQQXl pxhzNJGhPd6fQ3PSMWGAKA odS0hJPOHRM5UxB3SXT3oQ OQDNMIOUWU9BC9mviVZvWN RhYiAtIFJFQUNUSVZFIEdB X1QBU5PUGEdHPOPxzyr8WD GzKCAXGDyRPSsMRI8TY85G HGTAEVJGWY4VDHRNVEfXGW 9HSUMgQUxURVJBVElPTlxw OMXobLHvIY9jIoVATUQNHn BdPh0WTJyWRPsGJ6XMY0NN HvXAOXFRZ03RE1YNLSHAFl QKSsSMB5UMYI1XNYDXQVxU L6hwZDN7v4taiWHmRTVqdV UxODAwMFxhbnNpXGRlZmxh nyruJPBrBKC2foKuSBEdBR lxEZVkIQuoAj4lvCOuuTxi HgLcUIZtf6qcxyOLiippyD d5l9okWDZcBbX6lWSjBMwn E5yhxbQutKCuEPCcHUt7tF 12GQZppU0okUXfIEnxmgNp AvY2OLgnPFVdAmH5SKRsuZ UoUWRwM0pfTXXsOOtuAXOn EUtbfBSgHQR0vZlao2L9lI VzaGVldHtcZjBcZnMyMiBO o8VmDXx3pLnsG7PjWAHpBn X2bEXsYVMbAEbyVHRzEYUb ipF8fY35LVcuyjG9jNSns4 Ugr89lo544aL7ejVNyUWP6 GOJyUPBtyXCtVALqMJK5HM MibPOzZ8mgCXIlYF6ahptf WTedHBbrDIZucKA8FFUptP XbS3NcCCJpFVufYUHqvda7 MfMaGm5xvCTeoEoqELulu9 fde7mjnRMhZzw9LEYqRwZs SldgZOyol2Kde1syGCMrav 7xDZV6wBNqvDfln5I8nEBe KZYliNDcWXTfGY0lpFLsGR WfwN9tcwxsYEDnWmGufeel ZCQmnNwzheEyNe2yyOmcDM G7RSecZ3yuaL6mCiC3VBby O6chyZ8jDOf3TKtsFEFaqH F5zgK3TNUabHXuV4LsvT1x LIZuCD3kbdt9g5msLJA7KI xqUNKyNdB8ufC3XYXzdRKf NSSueExfMInsu147GUQ4Sh AqEOJup1WeI8XaaZfuQ83c jDwfL09cZBVooRlhfC2hnD rshM8iRhCtLkBhAEafiEcv WY0aQHNpG2oymAIaCLFzMS NoP5dbSyLxhI9olHwkHEtm poQoBTHaIvr3PAQbeMEtZO TaSfb2LVFwATZvO95kbvqj MXX9aN3me0pdj8WlFBlcAH B4JGRcc62tTHxojaV8PWah Dt46IYqyLJM1ONysSWN6jH == CPT Code(s) (test code z5qhlZGfERCasWF2MxNaYV = 3357) Rwn3xyn9PszAYcbBUeUPjt lNAtldKvkz61lTZ9qV34ZX 6nLVCvPxG0PZUdmrK1Pij6 JOLmIIKqhXAmN106x8eup6 cbpqSpqYH1mOqsARJnjllf TsW0MSgvMBWuqlifGUb9RZ dlENBooOC1FDGnoUTvQ4Gg UIDjIC9hesq7NJD8EJghLS RnBnF6CSQmmNLkEVOvkSxq GRfvt261VLA4OsChLHZeci XxuLtjuJ4bRdXaPON9FBId NVgzXHBhcn0= CLINICAL HISTORY (test u7pgbMDeBVYroKR3GvRhBJ code = 3356) Dvg9byg1OvvVUtvTRsYPiu zHGhqpFehw77tKQ8eD77NR 3dCXBtBwJ0FRZzhnB2Chp1 ORNsPOLgzIEoB488k8zrd2 tbonMpmXO0iCekAZPphytv NoJ6JSpiUOSaifiyOMe9OC qzYLEgwMU0YOSbbCSyA2Bq TONrVV6ryer1SDQ5YKfeWO EzWhU2MEQznLKzZSWyjKid VNqas227FFO1FqSrLBDxyl CjqSgrpK8zJvCfEPDQJSB6 jo8mj82sbSSyZVYvWJLjVv k2xXYsbGCoIPMeFPBou9c3 kHYcAiHkk8etnmjdLMG9 SPECIMEN SOURCE (test j7zhmICnWRSjgPI1TcQbVS code = 3377) Asl9ujc5MgwAPmkYPiLEzz gWDebbFojq12aHY4yO92LX 0rSLUpVkK5POGnlaH0Emg9 IKHuYRDvmMRsV226k8dmd9 oygtAlxPL9hZdwMNByfjat XoZ2LHyrOZWwwacaUBl3QY nzTSCxiIP9NOYpxIJxU4Pm RZZfYP1zomw9IBH3YMzwYY VjHlD0AVIswLJxRYObaHfb DPxjj271MCJ5LrQqLPFbon AnyFwnfZ7lWoGeUZDAZeZl QJ5hlMZdVZVrlF3cSCNfR6 p9M3GcH8YuGIwwC8njtL2t WLEbLLPAz5m3oWtkW02vx9 7sh6zghQ0pFCtmeO0uNHTk PPGFqW3yo8shBCcza8TssY MsIHJhbmRvbVxwYXJ9 GROSS DESCRIPTION (test y7igiLLkBFEplBBaOkAzNP code = 3366) PnEXAgx9efXAApjYMiTpDs MzNcZnRuYmpcdWMxXGRlZm Xoo5iey356dNYmq8cuFUNC rvxccHm9b6vaMLBjXoD8eK SsQDbyW6padhZwgESqAMBo BPy4bO22KLCcmC2peBRkUY ptjrMrRjH7TSqbZPOyWdC5 KYPncFUlNDIxR6uiYNEvDA viAQYpPCrefGWkDRX4uElg e5S0jYQyaIOpfOlrCkStGw LzBJBNh6StRFd4mGvzJ8Pf SQLxAxI8iPZlHBIbCXodRW ZyTULaewC2uG66FYxkccZ7 xMDnu5Msm42nh233bQ9kcT YnNQM9EAAoWMVrqCPwQBVz GJT5MHZkpTMvY7d0UqGgvG FmF2K0OvHimYYeB9Y3RvKi oDMnK7K3XpSghWJqIXCwxA VsYf0gdKOerKVzxa4mqu74 EME8y0EvdVrgOYB8MCC8Nx HxUd8lhTTjSXPwXJUuxHRs BXWmJT8siMDrXRZqwD7tii xjXHBnYnJkcmhlYWRccGdi kjSvCp9srKwhBON0BSsxH4 jcoY0fGaO7ZAvdE2qgfB9u XHt5SRaseYD2BZPnuN0jWC 5culloj0ieCyRnOF3pkvhg u0mzOdHuVR1ilnl2h1vvZg XfHP3ywrgno1mqZmZdVNzy MNOazumhKLIij9KjjloxLI Fyf1KmY8QsvPbeX63zjVpq O37lHUPjgKkoyU7pvHrfdS 5cZjBcZnMyNFxwYXJkXHBs YWluXGYxXGZzMjBcbGFuZz EwMzNcaGljaFxmMVxkYmNo KMTjCBscE7xkIvGoLvApVS BBLiBSZWNlaXZlZCBpbiBm c4DoSPihpwAfERPowMAzZC dpdGggdGhlIHBhdGllbnRc Q5H8etNzQC1yPUDuHCBoT8 KzLTIbG19iICAxdW6mONYq FP3gXZFvq5AtzeEqpimcC3 8vv35gyP6suLMyOGZsFPXc u80mkGG2lkGuVoQuMQNeEB FeFK6mBWPcpmMfl6B0MWIk b3B5OAJvBTZbzNDbicemZN 62OAplKU17JAiwCO8mDHWh HsMIsSCta2UyR5wkAG9xhQ Rhb0TxlGe0bFXbJBxwAFJd aB7faE6fFXRtANypmrZxzX luZSBCLiBSZWNlaXZlZCBp jsQnq0TqJEiychNtWOTojB VkIHdpdGggdGhlIHBhdGll ibMyL6D8guUwDQ2tHQFrWE KyH1VtZZLiQ04wGBJpdK3v HQVeJU0rGVCgiLara3brBV OrmH4dZITrqHryLyIsczUg A22af7lenDSio1KoUwUwkM EzUJPwa8CmsJXlLRHxoota t37bbEB5rHSnpRMickUcM7 qnPqQqylKhkFjxFURpm88l XI18CEuiDR6zQZepRX5uRW FaRQLiDTOdMYL4SXRmTiY5 IDAuMiBjbSBhbmQgbWVhc3 EqnB7uYVRjUkO1PNRqZfV5 TMIbTdNpvHWjtqPeA3ycUJ pyeTSnPFJaAOBvnVYrwC9t plToriVleYYowSU2DBThjR 8xyR88kqQmvhJPIR5ekHrn IByzpO2zEVLrIVKfZ9Tsot AvEAeyLEFvcd5qoBlmKAba AiMkLWLil1y5eRR9pKVjxZ N5cNYjqUerByCpSD7reTFv IX6bWCiwJElugsOvo4EwNA 52yOJkalFclgSvTozyd2Dx gJJpIutwNUAiFJAus35neQ R4gxOaAyN4YFGqQQSsrhWy XfM7RT6skMzoxbTzf6K0XQ Tvj4J9TDMvWE7sdL9fCWed IHNpemUgZnJvbSAwLjMgeC BaJrQcqUBvMdWfC04uxU7d YC18QZugZF6iPRjeAH3tZG NtIGFuZCBtZWFzdXJpbmcg IV0gLGrgGC39HSuwNT0jQF QsVDhrKCMoQ7WhO7L3YQ7y VGhlIHNwZWNpbWVuIGlzIH L4Xw3wxZHsQROgbtA9a8Zu YJauYKNxNdezqN4xTOdczu PpB0tCUOIsxs4= MICROSCOPIC DESCRIPTION z8nurETjSASjtLZ8NtRrQL (test code = 3371) Cwg8oan1MyfKPhkYLcFGqe zEYevzCcgy17fKI7rN38DZ 2xVSWcLgS5AKLarcJ1Rtc8 VQFhHHXykXInJ419h6uxo5 npmgWwbWV3cTqgPOAhxxjv WsZ1NPanCNCwhxngTFs9VV zuZAJjbKE8GHTqiSPwA5Pb TDUxGK2svgn1IDN4VRprLH XvIkE5DOZolDYiPXRrkKdq YJwlp439AJN2TrUaSTKgpo TgqAaajE0tJmDySRVLVZIk PE9aNBlmR2jmM6RdCNGhQL vgxDngv3gbYE6uLW9zfXlw nzDdG2ofbUAgdIEocaBiEq lhSB5aYXQbqtzfWMOxDc0t Lo3nm8qeererxMCruwGceC 1vfZDqkAM8kV4sNJLkycXk c5RhynJhGX5teGChmSGylJ VbATU5t6KuRVMrCCRdadFd LSokE49nukC8PDndAPTxFK 3qFT0tTZwffGerg7WkF4Rv bbKubUHkp45kN1DljYZtzy LhrrByv2KaasOwepWqd7P3 zU3tCDZ9REzrqq0sIGbfHX [id number] 18:24:44 Test Item Value Reference Range Interpretation Comments Case Report (test code Surgical Pathology = 104) Report Case: [id number] Authorizing Provider: Dewayne Wise MD Collected: 01/09/2022 11:31 AM Ordering Location: [facility] Endoscopy Received: 01/09/2022 03:51 PM Services Pathologist: Evelin Wharton MD Specimens: A) - Polyp, Colon - Right/Ascending, ascending colon polyp B) - Polyp, Colon - Sigmoid, sigmoid polyp C) - Biopsy, Gastric, random gastric bx DIAGNOSIS (test code = n2gddZVaRTJww5jhWZXszS 3220) FuZzEwMzNcZnRuYmpcdWMx IHtccnRmMVxlcGljOTYwMV nxmrNzRSYveANdP9Lwwbqz KKhcOQ9vTK0opHsdqQWfkG TkUBApSqTmo6hvo467rXNw f0stYZHPphdbpXv7fYpxY4 7fu7L1SynoN82lpAEhKQV7 WWSjHEMbxNXiTZZuJBK5NH EfyOCtV6gvITRdXK9dlecz ZWqiMRmvZUQhxBD5IQXuwO KuH2OwKOMyDGmcDQLnrfu3 CnVbCd0wtMVpsBxqFUwrBS UiWIFbTPupRMQgKdTyXQ5i E56NH71gVTMYZ9oWQ3XOX6 GTRErCMmxuKX7PRGNGO1LH TDk7LNQykeq5HVVeAISTIS WPFVFANQLCBQ2XWQHpnLVk FKXaizUEJxUBO5aXJfdfI3 eWDO9DXYhoAZ5KNRZXU7VL FTq2JQVldfd0APUjZVUWSN JIRZGFEYPHOF9VMRHbYIHe ajfnINGuYc0iL4FMWJOLNJ qvX4rMRAVBT6PhN9SZH1iS QUBGJFHHGC1CX4vjbKJnAE RhYiAtIFJFQUNUSVZFIEdB B1TCU4VMJTuMKWJukba1YY AjPHZWIGoIYZtWBA1MY29U MJTJVZSSQO9CCJKGWXqEPQ 9HSUMgQUxURVJBVElPTlxw PVEpyOSfUQ0iRbCRQVQNAt NaPb3ZBIrIQFgLC1MSR8TA TrXHTQCHH25AT6SRTFFMAj ZIYpYLQ5EDCB6ZXYDBWRoZ G7xuQWC2f3rdbLBiCEHygO UxODAwMFxhbnNpXGRlZmxh suhzHXTtRUF8pwKgBKSnVE qvNTZvDNwaSo6jgCBzxKot QrQlDHCmf1rvtfVHkkrhgA b8r1wmQLXaXvP3iMJxNAqh E9vyucKmdPPtWRJcWDp6mY 67ENYrgF1gdPXhAPzakkOs KwO2FOibTJFiGaX0VMElaE YaVTHeM5wtIYXvYSyaUKIn OAxnyLGjDRT7lVbpj9O8aE VzaGVldHtcZjBcZnMyMiBO x7ReGHi3aOybT0WfRHKlDo V8nFYgHZHoQOyaHRXbYZSs leY8sR48COzubrB1kNIml3 Onl61um929yS5mnQKbKXI2 JKEtQCVldFSzLJYfVAT2XH NpaRTgA0sjBKWwWI9jbpoz JXrfSKgcZRDzoZZ0VMCefJ BrQ6DlSIBxLOizQYOslbl3 TwEcSf1qnDYjeCpoUAifs6 jse6jhmOVoDvs0RUYtXaFa NhkwKQqei1Jsa6gwJTZdty 1dZVW2kJJemWpjt0Y7uXPe YUYenKKvRSZoFL6heAJkHU ZqsD4smnheUBObVaUyhwmi XGXgnDmrwxObSy4dhSmiIV B9QLxnY5qqiQ0pWrG2UCwn A5gxjK0xMVo8TSmgCKAvgL S7inS1PTQiqQUrC0DvbG2e DMRqUS5pbtg8o2znGIL1PD qaAVPmUbA6nkC0RJMklOHs CYOdgAsjWOvqc950RYR1Us RkDTZah2ViB0DtyGbxD43h oHlyG96wOKYxdTwqhY0mcH illD8pPbIrCkTwHOfloOdx XB8rONYaP5erfUFwDZBbAH OfW8grRqCziG0hlVfcSAyc qzNjIEVqQzm4LKEsiLMgXF GlVfy6YIPlDBPlN08qxuwa GBZ1sJ7oz2agt6IoVExqTC E0FWTrl15tMGzexhI5URsi Bw00DHlySFF3GQscRZZ1nX == CPT Code(s) (test code w1zefJClWHQelDV6MvTgIN = 3357) Xhz0aik8YtgIMktYMsKAqg qUXezfNvrx45pUQ7gZ29PZ 7tAQOdUtG1VITvktK5Qek5 EHExEKVuzCSqD223x2cjt7 ybiyApaWV1aXcsJDUnuciv AkD4BDngEODyuoixWSy4CA itTBZsqVW2SOIffTKyP5Jh SNTyXW4qwcs5FZU4XKcjWK QzGgP6ULXwbOIdWTYahCwf LEynz278BNA7ErHrAHEzat ZpdMhueQ2eQaHoVXJ4SBVy NVgzXHBhcn0= CLINICAL HISTORY (test o0akpTOgJPWwpUD6QjPgIX code = 3356) Ppf0puo1TkjJKkpVHcLLfv jKUtdeVwpa53mUP8xY84QV 8aKBPcOeC9JNZobgN2Tpb7 RWVoBNGcpGWfB968p5cdr8 owntFkjCZ9mZldUMGgteqz WuW8YTgiSCCymnjqYNf6EG mnEIZfmQJ7WROxsALyR6Eo MBSoMA5snvc6LCL9IHgfBX SaHfE5UWGieVOuFPMunVlb MIsvm405DKY1XvJlXZLcay DwcKpjvI2sOwJiXKSXTZO7 uw1hu24gjFLxAHAwUTCjGi v5xDMxtMTaVLFfHUJrg2v3 pOWgGjFqv0cthniwWGB4 SPECIMEN SOURCE (test e4wyhNDsMYIzqSG1ZwBsED code = 3377) Ehe4ydo3PsyTRdwRVwLSym aTJxzoBoci89xCU7tE22JK 6eNFAxFxU8UMKabcA5Rkv0 DRNxWUEgmDGbU560g9jmo9 ixsgHomZG3aPquFZJtvbdb KoS3LBksUSOjbzovLUp2RA huOCUboGV1FSRqxKQsL6Ey FPBbBI4wwjn0OLD1DWvpFS StNlB3ZZZzdEHlNSTmoXff YGxon443MIR9UnWkOCXxxf VzeTeegI0eGnQgWLYXBvTo VW7bwCBuXGKsfC3tMMAzC5 v2H7OeG0YgNQgqS8bciD3b IUBjOCBVm3a3aIjzS88uu6 4tx9gtrZ3wDGsboA1aHWGj HVRXdD6xq3gnINzrx9LfgO MsIHJhbmRvbVxwYXJ9 GROSS DESCRIPTION (test o0nxwFEhNICwbSMsWfJcEM code = 3366) DtHPKpo7odJXDjfKMcJwGf MzNcZnRuYmpcdWMxXGRlZm Jou9cnf149hKGrc8vbERRS guldaTk2f0iqUCLdKiN7wB CwMVnxV3cgavGrxRCbAHQu DFl8hA44SEYgkV4miVDjOI zaioGuUwN8TQvaHBPjBfA2 ZQLewWOjYDSxS9ehNGRpCZ fiUCBoCOiqfAOoOZB5jDlu r3Q4bFDlwEMdtHwrBmHuSi ZqIACNm2CgTKq6xBetR9Sb BMLwGbM0yLZiQARsRRjeOT GwKVLptiU2xX33FBxjtqB2 qGLoj6Uhv81gg597pN5tpT GgYEI2TGXcEOGqfQCfBQEt MIH7VJXpoGClF5w8MbVqzM DmQ4C9TjJhxDReM2N8KcCn cZIqN3K4MpJmcNBnOJSkkN NiIz5vvVProWEtwb4mhq71 SPX3y6GjfZjdJVF0MLZ4Eb ExLp3jtFUuDQMoOFMwqRMq GLStWL7raGNiIIOyoA7iow xjXHBnYnJkcmhlYWRccGdi iqYnJg4hgOilHPA8DMtbT3 nbtB4eUsC5ZAicW2xkcX7t TEp0UEfykMT0CCSagH4cAH 3ixrhhq4nhBlItOL1hhmgj n7diLoWiBE7jusi3e5xpGr FsFL7bzeeyl2biVjBfWDju YRCpxucbNXWck0LcytflYY Ltd0YoY6ZbhZybU49xgFqk T32bNFVdwJuunV4uxLfncL 5cZjBcZnMyNFxwYXJkXHBs YWluXGYxXGZzMjBcbGFuZz EwMzNcaGljaFxmMVxkYmNo PGSlWHdrQ8lvEzFvOqUcWW BBLiBSZWNlaXZlZCBpbiBm j4CqSUnkraEsLCHzfBLdQV dpdGggdGhlIHBhdGllbnRc S3R1wkAaKX6cUWTyZWXcO4 ToDWMfC85xGPLueS1rISCq NU0zOWCen6UhwyFegjcoX0 2aw16hxZ9orUKcJOMgBXLe s14quJF7wnOvOyUzKBMuGX GxOD2oQBFrvyHuh8W5PCYj b8M8HVBqRPNodECkbzonQC 32EUtqFN71BIjfET6sLKOb OdMSwDOgj7YyR0ygKP3lpB Qra5XjsCl6kXAwIKivGJWg uU5xyV6rBDJwNBewbuQlnP luZSBCLiBSZWNlaXZlZCBp dfEgb4BbBIvxvtHpJTMjdU VkIHdpdGggdGhlIHBhdGll mtPfX0O4bkKcVE8dLBIqTC RzK2KuDUAmG60zSRIimH9w JBStUD7pKERfjPpis5rzNJ NzaH9xXXTybZxiAbKqddXu W60zx3acsDYhm6WvJxQfgL VcPVVoq8ZhhIKkWWNxkhqw p28reCU9sKFsjTIkpgFwJ7 mrNaZdrgTijJyiFTRgo00d UA48DRbiRY4dBRagSV7mND RwFBVlZXXjFDB9TZZkMzU6 IDAuMiBjbSBhbmQgbWVhc3 DbgU9zHQIcTvS8DHCsAfP3 EXCqZzZvuKGeorQkQ5ooUO zadIYmTHOhDZGqaTGvjB0x kyJrioOyeWYndQL5IGNkpG 1qhR96naYamxYVJH2keQhf EUtyeZ8sAQOqJRVwO6Bmmq GtFDokDTHtuq7xoHmyUWxj DrWcQJRhf5o6pJD0sCIayD I8rAFvtGsuZuSwJZ7rnPWy XB7nSWxlHQegwzLkq5QaNT 93yHSzmxOwzkAmWvkfx8Gm cRKmEjzwHYMnFPKeb95utK A4bnJfYgV1YJPbXMDnecMh UvW5NI2gySdphxUxs5T1HV Mpm0P5TPAfQF3bnD6mAKdi IHNpemUgZnJvbSAwLjMgeC JbZzIfaYGeTcPnI69egZ2m DW85AXdkKW8wSTdjRU8fWV NtIGFuZCBtZWFzdXJpbmcg GU6iYCexST00LSrxRE9wML ZlBYezLLMhA8CvG5D6RC5c VGhlIHNwZWNpbWVuIGlzIH T0Iv3ikBCmFYFsdcK4b0Sd JCsuVOTrWhowaI8vWAmmdw ZgQ8pUYHXgrf1= MICROSCOPIC DESCRIPTION c2osoSNzSEJurCD1IlDkDK (test code = 3371) Ndr3cys6VkeJMmzNCbDXoz wKSlgcEjho64sPV4mM79OA 1mPOPzPcP4MEYdvmH3Acm7 NTZbMMCqzNYgO437a2anw3 dvfrCrmWW9fWsnZEEzpynr AhQ1YXgaACThaoxcRXi1YJ geHHQhiBH7IEHtkCOnL5Av ABKoIG1xzlu5CFA8MNtlXA TmFdM4QEDfmSUzXYAsiXcr HNbmm773TUS5EcUoZVSaqn NwgVosaC0nYxHrBNUTNWRh CU8uCYeyP3yuD7CgOAHrEK qxlGqgz7tgLU1vZC7kdHas wkFhI1qdpKWrwGBxasReFq zzYU2vJMKcmrdgQTHeKn8y Qz8cn0nluvitlEHxkaDoaE 9fzPFiyZI5iJ1kOWWxbdWh f5PethOhTX4mmMUrfCNzeY CiLKC6t7TtBCNnCBAtizOk YOhiF89zkxU5HMhcKZChQG 6rBG3mDUfpaQyei0ViQ7Bm tuPgxOOsr54uP3ZmaLTphu QwqiQyr8OsiiQsuaEth4H3 tB1dPFF8PHvryk9eNDlrIO [id number] 18:24:44 Test Item Value Reference Range Interpretation Comments Case Report (test code Surgical Pathology = 104) Report Case: [id number] Authorizing Provider: Dewayne Wise MD Collected: 01/09/2022 11:31 AM Ordering Location: [facility] Endoscopy Received: 01/09/2022 03:51 PM Services Pathologist: Evelin Wharton MD Specimens: A) - Polyp, Colon - Right/Ascending, ascending colon polyp B) - Polyp, Colon - Sigmoid, sigmoid polyp C) - Biopsy, Gastric, random gastric bx DIAGNOSIS (test code = i9xpzNEiHFZap4ydDGPplL 3220) FuZzEwMzNcZnRuYmpcdWMx IHtccnRmMVxlcGljOTYwMV rhqoLaOJMcqMJfO2Vtdicd UVfvZL5sUK4fxEoptOGrnN JzSTXgCcRog2kvx610nHLh d4fgXFQYphaviCg4sWtnE5 8ng0A4PsboF42tvVXoCRK6 BDCxUDHvdAOoXIAwRYY5OP AcjAJtS4mkCILnQO2axcty MRcaTSeaRTXbnJM2TDCagK MeF8GdCCThUEexZPMejsx5 IkMgSf8iiBSmsKrvLDdqTS WtVXVjEHvgFDKfMgGtQJ3t E06UW35hDTJCU5wQV8PDF8 DSPYfHOgpgKG2ERZJVY7CA TJh6TCSyaly8GSYsBUCJLQ FTFKTTPSIBIS9FYDMjdMQj IAHvpoQFWaDSP1wZSizeB6 vHUS7DPGffQL1LTJBXL1LA YBo7AAAzits3JRBmXCKBQC LEXXLPYJTXLA8BXYElHGCk zxhcTUGdZm5fA2HKYCBYRN qjN2qULKOQO0YqW0ECL4xA AOCCNHDGBZ2HF5bceGSeZN RhYiAtIFJFQUNUSVZFIEdB T1WST8GKNTfSUZYerpr5NA GuSFWRPYaWWWvSIV3RF49K VVYUXJZYDA6XJCRYJIbYPM 9HSUMgQUxURVJBVElPTlxw DXFpiTJsHJ0gHuXEMOOKWg LqTy8JHZgZQNyHA1QDV1EA LsTHOXYJG54HL1LYKNULOt TVXpUFK2SRLL3UNTPZLVcM Z2sgUSD4y1abkPKuRIIhdZ UxODAwMFxhbnNpXGRlZmxh dvupGLHrCSY0joTfUCVrZX ipNJFwIGccDh8bnOGbdLkv JrDaSMLao7jbtcRDvvseaW f0v8cbTHIeGoJ1xRTeHXgm J8jbafBcnRRfAXDqPOl0zB 42JAKmbS3kuTJxSNvxtxBm AuC3FKsaVAEfXwZ4EWFvnJ HyVCCoA7tgYFUgPCwyATOn HHdxqOUuRCZ1zEnix6Q3wQ VzaGVldHtcZjBcZnMyMiBO l2OoQXg9zZtoX8KoXQQjSd Z3hTHoMWHnYDrhEFOqOXXq suK0aO32ACbwyxZ7eLZwp6 Nyw37kb459nC3gvCOeQPL1 JDVvUAVhwPPyXMZrDDT8YM IguLWyU8kmYULwKH0owrpc ASrnPIegMDBodAN4WUXnnI KpX8OdSMGzAQqfGNVpbjo6 LaUmNs3jtBMqkYrjZPqtn8 wxc7hwiYJlKfl1HZQzExOg MrcpSHjvl2Rcz0ybOXPttu 0tSWF7lRBjrPvus0B0mIZk LVQjlDCsRJZeQH6qaNChEP KlzL1sqdqkQCPxSuPyjjyb KBXcxUuevvTaEz0muNpkYR Z8VRukU4rkwS3yBiC2JCpd D0exjZ9kNQu7BOkjPAVdlL I5gpU9PPQqqXCoF8DueJ0m NQWvVQ2rvar9n1ytVNG1OI prNMWnHjW7jwS8JYZdpUNu OTWdaEnaOIatu122HPM6Fb YtCEJzq7FdZ7GkoFvpK89o pFbzT75hMEPmwNxkjQ8tjA bowU1tEiJeUiNpJYmumVzq AM2jPNEsG5nrkKOpYXKtIW HiP8ghJeZtmR4xiJwfTEdl uhTtOUAlHav2HPVqwFWiRB PjAeu8IXQkJQDvT00ekhuf GRW6vD9vn0jer7RzGEnaBE U2XEDou29yBPjdfpS4LVqp Qc20KKfuSGI7VFxuYOJ0lO == CPT Code(s) (test code x9kekQNvXCOdtOI5ZrRoSB = 3357) Afa2sby9AxnUUevMNhZFvt tJMpngZade89dCX4lC97FZ 2aEQFmNkY6NZVpjfK3Tvz6 IBPqTWVxpJIxZ142z2kce8 hjaeWamAQ4dRfrTHSgjfiw UqN1BMrmVYUrmrvfKHg1MA opOEMovAN1NTYeoFNtL7Nz HAXxOD2yjml4SYZ3KGraJC BhFeI9BOJvgIHvHTHmaPhh QHbyu950LRK5ToBrRYFyyb PehLybuJ8zHtKnYIU1NDFr NVgzXHBhcn0= CLINICAL HISTORY (test t2cgyAHuQPNrbKZ1RuBsHU code = 3356) Xmw0apw4FszUSquAXtWJci aDYoskIciw25iUG4uL41RJ 4yPHMoJgF1NBRvzbM9Muu3 VIVhZHPzjAXdI393m0jeo1 sblqErpSL1iNwdXWAanoon WpU6BZzwAICiathdSZl0IR ibNTYahWP3TCTmdPZyY2Ko GOAtNA7jeto9HMC9XChrOZ LnGyD1XDZrgKBqMQNhjKpy JBrye147TIL1PrOeAYVawl PkoSjyfO4lDcQjSYOTUOY8 jy7qf18ydYQwZXPhTHGjTf l7lHLodOYlLNJuNAHip0v0 uTSwVcYno9uqvinxAYZ2 SPECIMEN SOURCE (test t5mdpMKvESTomMY3LsEvIU code = 3377) Dcp4npa6RfvMBxlRGqSIcz sSXovtEhha74vEN4iK98SV 4uCTUjTeK3WJWtriL7Fck2 AMOzTMLzzOYxB003s7lye0 sphxSrfLG8uLrmCXDwunnq TsL7TRocLNXlpuowEIe3PK piBYPoaFI5QGYyeRScQ9Vc HHTuKP9odyf8ZDN0RBliTC KeTlL6DAOmbATgCLXhdKcl ADyph065GDW9YuZaTWQxck PusUmfxJ2nToZgJDHPFzDe FE6atKFsLNFlzV2oOMWqS0 y1K3IuL5ZpBLpwJ1pniO1n WOAqGNDWa3b1bCzzH78fy2 2pk3iyvC5rEYrxaF3uSZDi PDHLeV5jl9jiXSfwv1IidA MsIHJhbmRvbVxwYXJ9 GROSS DESCRIPTION (test l9ifkYQnIGOjjETuYsKnBT code = 3366) SbIBEze5dwNKCsqQSmQhAi MzNcZnRuYmpcdWMxXGRlZm Rzf1jii115vAIwr4suUXPL qlmmbZg4d2vdQTRcToL0hW PdLYfiB8jsxySiiQIjPRIn FQp6lE25DIItqF4gjJRwZD ixzvXaXdE3MWuhFCNfNyZ0 YHKveBFkXINgT5hcTZJgZL mpQEDeBZktqEQwDTK6rFgt z7W7rFEbdTXshPiyGmDnHr MfLLKEl3PqWFt3fGzhK9Lq YCIsOmH0fRTxOFNaJIorJI VyTCTkmiV3qQ17VTbigrM4 eUEbc8Xag13uy721rU7nnM HtKUI0SKRmOOYefULzCNWj DAE8SKNhsCYrH4t0LmWtdY SmN5N8PsJisYCzM2Q2JtEs wCJtO5M0UuEknCXiUUFmhF CbPs9txSQguPYoth4fub30 XEA6l5YbdBapYCM0DVP8Io VyGv4fgIRhNCAiTMVpcMAl YGVxYS4soVVqRAAxpW3icn xjXHBnYnJkcmhlYWRccGdi zcOmRc0iqReuZBG7UFehJ4 qgoM8iMfX0NJtwN0dbyU2q NDu1YRzuzFP6HQLcrP3mRE 2rphuzc8qaSoLqHU7fnzax o0oiZyWdKP1hwvp3s0vtDj TcLG8vqvbks1hzWhGgRXrp HEVjyognNXYdn4PwqigpFT Tdx2OyC5KciKbcS57xpIak Z54nDULdzOmvtU9djFufoS 5cZjBcZnMyNFxwYXJkXHBs YWluXGYxXGZzMjBcbGFuZz EwMzNcaGljaFxmMVxkYmNo AXJoGCwkS0qcGyDpEjWdZV BBLiBSZWNlaXZlZCBpbiBm m0RpKDaakhKoCIMgfODiRC dpdGggdGhlIHBhdGllbnRc Z1J5ncZtHS8tXEIgEVUwJ0 HiZWQgP65yBFIgaJ0aLMTu IZ0sBXKij6BiloEfccezQ5 9zg33dtS5wpPReNYVfLDQz e14hgDA8mkIkSnUtOHXoJZ SiXW9tCVNgzfHkp6O8AYLk w5X3EYSeSLNlmWHlcrkqHW 46BGrqRH92OOaeRU9rVIXd YfMGaYFan8CsR0maNO0vcL Dag6XttUd3tNWrSQtiMNYb sU3qbA4gLQQpBRqtjdYzaS luZSBCLiBSZWNlaXZlZCBp kzLkp4NnJQapmfAuYNWtzZ VkIHdpdGggdGhlIHBhdGll syIxR7Z0jeGyPU2wJUUxCL GgR9NdWSNlJ64wKSHhoL4s GNYgLK6jEMXmlAtvv0pfBC WwaD3lWIVjmRzkAzVpzdCx P60yf4dnoVRzs4NjTcGmqH TiZUMro4OtfHCmDOKjfvzz d90tkBS1lYGcjONgmmWtT9 voTeCpafEgoSihFENqa79k MK68BVxqZC0rFUsjPS7dRA EeVOUjOKPiODE7WQGjXkZ6 IDAuMiBjbSBhbmQgbWVhc3 SjbL2qUXTdAmU6VVXpAcW3 NFOcIwVbzDNpyjHnK8erST trxNAkDNMoEARzxJHouG0j wuKlhpGrgNAptCC3NCAjlR 8ozH49dkJtxeENVL6gzRnz PImmaS8hOAIqTTUpK5Yqkl QdZJsaDWCdav3orBrcQIeg IhIzRMImt8o4kGB0fOMrhX E3pDTqtSihBeXyPM2cfNKd BS6vNKgxQWofxdFvd3HpTJ 08gBRkezXvflHfAyfoi1Wm jYZjQiejCNSfBEWej24bwX B5bjMrPkW8EMZlISGxrtGy LwA1VQ2nxErqdeDqe8N6TC Fip3M8SJEpWH7tsS7iJKes IHNpemUgZnJvbSAwLjMgeC VsKtKpuMEkSeVsY16nuX1b UU65UOcaEW7hGIgsWZ6jQN NtIGFuZCBtZWFzdXJpbmcg FY0qGVijOD22VYkeRS8qKP VwGQjrYZTiY1JrJ6E3PK7a VGhlIHNwZWNpbWVuIGlzIH P1Zh8alIIuMDYhcjF5l9Uf VDqoCDUkWupznX6qETuwwx KtZ7hZZEBniq8= MICROSCOPIC DESCRIPTION c0ypqHUbCDVwwYY8WwKiGK (test code = 3371) Ccq2uvg1TgoCFxtDUsIChe lXNikaVpfi02gUE7iH04HL 9xVZLnOmD0IDPyexX1Tsg0 FKPfRMBawOTaW561e1aha0 gyceUrkOM8yOcbAVJqktkf ZrG8XCinOAXqddksMGx5JN jjZIXosOO8YMSibFMzK8Zo UXRcUH5wfth3TRV5TEcyRQ LzQkD4LCAiwVJlATQraAro HMoui648WRM7HtZmOCPhlv TqjShbsR3nPhFbACMFTDQp CK7dDSsjJ6kuV5ZwCZRzRI itbFgvd5hnOM2nKX9yxSyi wrLnL8txhHFxyMCgncTxNh vgVL9kKXLmlurnBNDmTk5v Ui9em2qbrzqqeUXljyBvlS 4yvUObhJO5zF3rCYBfygKo l7IupzNaZF6vfYMdzIMdzE NfREK0g2KkKMRhJIXxqrNe UMsrY47rtwD8TTayKQCtZR 3eTR9oPEypvDyev6HpF9Tg adQxcVOeg48nY1GsdCIlkl XwwwOpl3VbakYshmTqt8U2 jM3wVKP0LVxqia9lGLdsVZ [facility] [id number] 18:24:44 Test Item Value Reference Range Interpretation Comments Case Report (test code Surgical Pathology = 104) Report Case: [id number] Authorizing Provider: Dewayne Wise MD Collected: 01/09/2022 11:31 AM Ordering Location: [facility] Endoscopy Received: 01/09/2022 03:51 PM Services Pathologist: Evelin Wharton MD Specimens: A) - Polyp, Colon - Right/Ascending, ascending colon polyp B) - Polyp, Colon - Sigmoid, sigmoid polyp C) - Biopsy, Gastric, random gastric bx DIAGNOSIS (test code = p3lofQOzITUdh5unIMOzlW 3220) FuZzEwMzNcZnRuYmpcdWMx IHtccnRmMVxlcGljOTYwMV tgpdSgPQUghYWkG3Svdxfk BHhrLC7cZN9ntWlksXTnyT SfWIBcLeZga7kmn170dAAo y4pvVXRDxvqcdDt3dHkhS6 8zp3V5EsevA27otLBfVON8 AUHyIFKwnHTrRMJeBKD8HV FxeKQwL6ocIOOvMP6dysmx WNsyIDkwRRXsaWS7TPIesQ AgQ8IyWOBvWSoxBCSsvza4 PlAaRg9upTHxiFggTQyvOA NiJDShNZokTXShYkNxTX5h P12KE23tYIHZV4jNN2KVL9 NOKUlRBlrpTY4TUCJRJ3DG RJn7DZJvmhd5DZTxLDBFUV EJOCAEHCMJQV3PWBMyiQYq IUAqahZGCrGKZ4gLPkhfO6 mLKP9HOPojHR5JCNHOH0KM NUu4EDCwnxt7WMTpEHPBPZ JVDULOBKIAWI2RLTEaSNYi xuxhYOIyFz2cL3HEHOEONP gxE5bGBJIZG7RvU9YJP6gX QHYXZHSJGF2EJ5nzpVRzFB RhYiAtIFJFQUNUSVZFIEdB Y9LYG5DDHKdUUXDvndi9DJ WoMWGSJUqQVRfZYA3PH75Y RFJZZIZTDM8MVFHKOEeJOB 9HSUMgQUxURVJBVElPTlxw EGSlvERtQN9hLrLDEONMLa AtMw6YWFcUWZfCV9JCT5MV SeSJORVOY20CK6DFZPQYZq MWWaOSA6EEAQ7SGDEVRTmI A8pfCQO4c2qthRCnIBFhxE UxODAwMFxhbnNpXGRlZmxh ouqgSNKeOKN6zpWhXGCoQE qsDIKyZLbhRm1tkGXmlWum LcWjNUSxu0idhpQYlujbfD u4a2ekLXRnXjO0jLJsSZbs F8rgocTpqGUwBNVuHSp1cX 00FSOsyO2gvZWyOClmleOb LxH2QQleWSSjZiQ5NATdxE EkBHNlL5nkDJZaZHjpUPEx LGruuTMqAKG5mSvng1L5qN VzaGVldHtcZjBcZnMyMiBO o7IbTNq4vDdrG9SmSBGlXh W1uOKiULBgSZzlUEZeQZRg ufU6sI38SNmbdqO7yAWgx9 Xoe21qv428gH7nlJJwQCX7 KWMdTDDruLPcDTPuTJJ5LK HnePCwH2aqEFYtFF5azklv PJhdNEitTDGqdVL7NCZevX JjC8EqZYFyTMfvEZLeqby4 KwBkNb1yhCJttTozZHiay9 xyi9drzMQkHef2AESdUqQm RlbqXUgjr1Gsn4cjCWSoyz 1iINN7vVHbuPxhf3D9wMJp TREdlDOqERNqLF2gsQIkTQ QliS6nypvzQCFvOcCsdnyo XKVaaDlmvxKbTb6oiUekVC L7KEzmM5ybiK9eJoI1HIcs V6bzzC7xXRb9JWftZOEhbZ Q2faT1RYFsgBKkK8JgoC6v GPNcEF9kxma7y3zyTCT5NS uxUSYlLkA1nkV0QLGwmIAm SREixHzxKVttn471MIN8Ig QcYJFzh9NyT9PzkAmmW10i vLvjB49kTZYfuCufzL9gtB watY2hJoNkZqHnAUmszZmx NS1dEKNbX3dofXFaBQEkUO RvV3jmKzFvpA2diWyePNho raFjDDLsMxs9HNRghMUkPI SaSfi8WENtNVIdH58dltgq KBT9iW1ne2rfm6PlKHqvOJ R3FPHae99mYGgmbcN1ZFve Oq56VRwuUDC8ADsbPBU2nF == CPT Code(s) (test code e9ibwXEwDGPnoMK9FqRnKY = 3357) Fsc6wuu8NwlNQksRFgSTlv yEZevmJqrj62pUM6wW53YV 0eVLAiBfT7YCOqyeU5Ctf9 BLXkDWJrsXZjR103y7unk4 atqyUebDV7rJxtDHAkznml YvV2KCmxJEIxhovvNKv7FE leTUJoaRL9SJDmzQBaG0Iy QSJgGP4ixct5TYU5FBouDW LaJiJ6FQKceUKdVRTrzIuj WOrzs428JYF9IrVfSVBjof QkxHoghS7sMhZmXCJ4JDDp NVgzXHBhcn0= CLINICAL HISTORY (test c3jaeRBtZAEofKV4XlOvKI code = 3356) Fzw5erp7BqzYMgfGVsPDnc xMHkruPtsc95eUI0mB50GN 0dMHKfQtZ6LSPgkaZ6Vin6 KJGmSUOgwWNxL716p4erk6 wfmiHkjTE8nShrCQUtjyfz NaR6OBruRMAlbqkzWOl5GG aoQCIweZS7MRIckONjA0Yl GHInJG4ddra8FGG6ZGcvME UkNlL4VSDknMOmAMZhfPkv JVgxs235FEY8RmNjUHLfut GdzZcofV5yQxLxUWEMIZR7 mh5yk85woKArULQdEZVdXx w8wNWjjPPqCTDwEAPzt3o0 uCWiFrKcd3lldiriWFP8 SPECIMEN SOURCE (test i9nbvNKoEKFbuZT2FhMjDZ code = 3377) Dzr8hwi9KnkOIkzIBsGKmc hAOcgwNvrt83pSK0qB43IY 5bCTJbShJ2THFaoeU1Srv0 CXCbEHNfyOUcL736l5kau4 vheaQqpGX6dPmqCCIkvlud NiZ5KIptYKTxegcyPKx4MO zqZHYqxJN1MMLesULrM0Qn TTWcEN7wekc2FZI9TIwbSO NkIvQ3FIVkvFVuNCVniLpv NNnft983IFU4OxBpSHXojt MssOpgeM7yUtIuRWHUQpFx ZN0vhCNvKWEqwV7rBWTiH4 o6Z6KnW2DhZNbaT8ioaK0m QGZrYRCWi6a9bJjbH76kj7 2gn4khsP8eVFgopX2fFJBx ARJEzW5lg8scGRiox0FyrV MsIHJhbmRvbVxwYXJ9 GROSS DESCRIPTION (test v7xayVCsVHLecCVpKuWjYW code = 3364) DoUBBdv1zeBRCiwXZaUeSr MzNcZnRuYmpcdWMxXGRlZm Wts5nww623kVWqt2ioELNM tmbgxAk9c9gbFCKoPuC6tW RxKDrjX4cbkkNmaXAwPWZm SQt8lP42TGEjoJ7smNVhQS jqwqRoOcJ6CYpcAJTiVdK5 MXPthMJiJSGzQ4klYPBrIO viGHKmANzgrQTzXDO4zFet h0H1yFDzoUDiiTmuEaSnAb UwSDRSl3CeERk8eNjuR9Kr IEZnVuN2iQObYNXfTZkfKR BuBNQlhiT4vW52YEclwlL5 zCPkk5Fcs54gr883rL3sxA YpKIV6NLFlZYIjtFCsAKNp DTX0NXNzeCUvR0y0GdVcoN VnU0O7MuUjmJOkC4J1WsHt pWFiR5E4XdMcqTOcUEAoqO AzMf9tkVTxqXPiho3nej60 MUR5n0WogNxnHXP4BGF5Zv TeXi9dtHBrXASkNOJbiCBb VHTuFA8riJZsAZMwwA9nuz xjXHBnYnJkcmhlYWRccGdi dgAfAk9qkViwVBG6TNojH1 pgjC0vCxE8ORimK6tdnB3n WNx6YQamvKM9URMguL5sBN 8jprlev3gwAyMkXI5gsepj k1jpIaNxHY6cqlo0r2bcPz ClNO0gvqrqa8rgBcCtCPlm BAEaphaxYECoi7KgpmfsVC Qst4TaR2JmlZlfA14rjJra N13kXDYbyNudqW2aqGvcvH 5cZjBcZnMyNFxwYXJkXHBs YWluXGYxXGZzMjBcbGFuZz EwMzNcaGljaFxmMVxkYmNo LZRfSHveT4cbNpDsQgMqAQ BBLiBSZWNlaXZlZCBpbiBm j0PmFOicywBwYXPweTNzOF dpdGggdGhlIHBhdGllbnRc M0F4veBzPM4hWTEdFDCdT8 PhLZWdX38nRSJscE3fJYVf EP5gPIDky6XirtWsumjwL0 7mx55hcQ3gnQQgEOBxIGVv j96guXF5ajCvUbXzLCKlSY MnJX1cGCSguqCbm7N5EZZv n0O0DHPbUFAtpSGxqlfmVM 52XKfcHM46WDdePT1jSNVv OeQLiUPbs6OqC5juIW7igU Qqf3SdlFq6nIRlRGemRJFo bW8ahK1dQIDfIRolbbJseJ luZSBCLiBSZWNlaXZlZCBp iyYqm1UkJPfcvxWmJZMcwY VkIHdpdGggdGhlIHBhdGll rtSsR5G6auIxPF1cOJUdVH ZdR6QpROIfM83aGAVufJ8m NBXkQZ6pNULubVdzl3mrFA GgmY0wWFCoySxsAwFbbyBv L51sa0xlkUSde0MhKbKrbV HsOSUsz5HieUHoTWAvhsef b72vpAY5lDBgrVHacaZzK8 ptEdJzgmEtfCoaXVNja68t WS82DCemKY7dDYwtHS7jPI TbQTWiETXkYWE6OATwCcQ1 IDAuMiBjbSBhbmQgbWVhc3 ZbuF1yVSMjDjT0TGVhOnQ3 YKMnNoFsqWZtvpXiK4jnZF hrxESuEJRvORLwzTNglF1u mcSoveMetDZmrIR3IVWkgV 4bkE52aiLxayAMDU1lzFcc ZAxriY5uLITzHDAjN9Obwx QuNCyvXNRqrd6tqTdjLQpt OuUyYZMbp1b3sTS1bZUisD D3cWBfmUbwGzKhKU8loJWf TN0hVVbjVCkspcSdi6FrCU 93rUSyfeOykiJvLmpey9Na oVQoGsnsXAWxFYVsg84cvA L4vxTjCeT5YNChQUVweuVp FwX5YM0dcSpuaxTyv2F7HY Aqx2N7ZXGzZF1vmC4gUXxf IHNpemUgZnJvbSAwLjMgeC XkWwXpjEHcYnFwP94lhL5t OX72NKznBB0kFViwRN9tPE NtIGFuZCBtZWFzdXJpbmcg TL0oHAyaAG42KHgmHN1vNS NnNJlwBXTbZ1PjV5Z5UE7w VGhlIHNwZWNpbWVuIGlzIH T0Rp9alJHxBDZgdxI7b6Jr DVpgBKDmQbeptJ6rVJqztp JmT5bOHIBreh7= MICROSCOPIC DESCRIPTION l1bhzPTuQMSwkMC9UiLzXV (test code = 3371) Hgc8wfv5GoyTNumFCbEMhn eKVorgOqeg01iTZ3bU83UE 9kUIQaRaX1GMXhzkL6Wkr6 IMHbLZKunUUrR574a1lqe2 bmufYagIW8hVqiCLBqkzju PzS3GMayCKDokxykCMa6AS fuQXIaiEL8VIZviSVxC6Oy WCCoPQ8vpgn0FDV9QAreKE HfOaO9ZNIhzVPrRKYopXsu FUhzi648LBV9FySqNHEvmk HkfXoltM3zIyIxNOFPVJEu YR4uEDnbF0vbA9WaPEMuMU tdzKfff3baUZ8qGB4snVhi fvRwX9zdwYXxyUDjgnYgSl hdUL5gIAMwmrrcESYjMp7m Vj6qy2rzivxjgYXcgjSvnC 7qlVXheIZ7tP9zZSKaxrEm h2HtpgZvLC2wzGXbgDJliS YmEDH6e5ZqNTZeUEFitnRz LGkhH75onmS3REjfIZPgRH 5zAJ4sUAyxsWrgv5XxO4Zc pmIwaMYon00gW8TqcGEigx QdarJgh7WrjiMalqLqt5H3 xG6rSXJ3VFhokw9xTXnzQL [facility]9 [facility] [id number] 18:24:44 Test Item Value Reference Range Interpretation Comments Case Report (test code Surgical Pathology = 104) Report Case: [id number] Authorizing Provider: Dewayne Wise MD Collected: 01/09/2022 11:31 AM Ordering Location: [facility] Endoscopy Received: 01/09/2022 03:51 PM Services Pathologist: Evelin Wharton MD Specimens: A) - Polyp, Colon - Right/Ascending, ascending colon polyp B) - Polyp, Colon - Sigmoid, sigmoid polyp C) - Biopsy, Gastric, random gastric bx DIAGNOSIS (test code = s8fjwRQmLHTbh2xsDTFnvR 3220) FuZzEwMzNcZnRuYmpcdWMx IHtccnRmMVxlcGljOTYwMV ihraZkAMTslUYoZ7Nklncd XAirGE3aGG6bfRenzNWeuV GtSMXaNeKkd1kov238lTZs s9ooMBCZmtmxqSw1mBlyA0 2pb6E2SkprK07bpNRdFMG1 ERZrIFQfcZBhNGKzVZB9JX BxwAIpZ4lxZBOnBG9mnvjd EHxkRYtqZTEwrNW7QIJyxR HsQ1NnRJKrUItfEOPzgxb4 BhFxPc2tnJYnwEjeFAllEJ EpQDIqADphPGKnLkIhAL1g D67HM19gNETHU9eTP6SGP9 QBGWgNDmhgEW9FAJNOG1OB YZs6LRMitjb7HQXfQGNGZX IQPVYDWOFWRR9SVSRtoTXt GTVszpQWQxIIH2xFPmafY5 sZLG0HDPgpLV5YHJOCD4WC ZGo5XKVsgvg4PYFuMPPXDJ VQLOAUXPHEVG8RDHUjLNTw ribvDYBsMo4cW0CSGUUELB gfC8jMFIFEJ1VmJ6LKX1aZ HXDVQDOHGV8RK9hruVYaQE RhYiAtIFJFQUNUSVZFIEdB J4CUI8EOFRyDMLCcjpl1LC KlKPFUTKnGJOgQUR0XP66E AFKWMSRWSC9LJGIPMHpOBG 9HSUMgQUxURVJBVElPTlxw SGZkmKNdDQ9lXgGFHDKUMn LrKs6SFYqIHQaEU3WFA7GQ KhZVPFBVM96FA8AXRAMAWo WVNpZPM2AQTH5MGMHEMNiP F4prYUZ2m6iieKHqTUKlyO UxODAwMFxhbnNpXGRlZmxh bwoiXNGnTSQ4cjFeWCTpBF lsCTChODvbJe5bcMRktPzf RtOnVKOqs4wrxsCInjxpiB o0u6jtCXJxMqO4fQIhZUzt E4dvycPjpOZnCIWpWMy6fS 55KATgoV9jmINhDUxahjIp OpP4SKbmAIJbSnY0EOEphU MsUBKhP9fwINQsRHtpFOGq YUoylYDyDRN4nAofz5N3vH VzaGVldHtcZjBcZnMyMiBO j5CpOHy9kRecB2FdEMVeVz D3lHGjLHWnYEtaCDOdIPWl jgY9mF16MZaszuF9fCDvg1 Rwd60kk951sK4xdCIjFFF5 VJIgHCLbjNFzODCeGIL7LS XnyKVkN7tsRAUoBY5benbs VKpjEDzxTAHjrRO2ZZQvnB HvD7QxBWWdCPvkBFManre3 IgHkEj8bjRKugAqbCMlzd9 vil6jngILmElv8SKTiWdEc OuadXKlsp3Nun9ynGIBbvo 1dJSA1bIGsxLuvu0T9hGPp MQGqrVKiFSHuEV1avEAcPY PisH8dydldTNIzYtCmhjhm TGIiuOmzecDuCw5hvRtkDH L7RKhzN4wzwT0bZaT1XZmr R7edgS0rBSm7ADikFWWkbF C6ciA8CKIiqOZmW8LljN7w RHEgVZ3xzxw2p1asMYW7RM prWVFqGoX4uqT5CRJhyROo HEZczAwgOBjte738CHC8Hb WmGFNgv8GqD8XtbVcgL62e eHqnL58xUQJumBfabT6cdK djqL0gEdSzPaAvJMhwiXul WG9nZFOsU2zrbZCbXHCiQW PlD5ccUsFjnH7jxPkdOSyz jdFeIFBoQpu7VPLacVWgKS LcCbp4WOCcLSJxT07cclfy TWZ0jP0gl5hno2WqYRjyJO Z6MLBsy75kXZhfxkK7AVdr Mc47TUclDYQ3ODtrGFM3kM == CPT Code(s) (test code b4zlpGOdVHSftWS7PiXeRL = 3357) Tjh2poy9YqlRJawJFnRRsg jPJaouBrgr52kWS7vV84OY 1oZIPxVxQ7SATjtpU3Kty4 JZNmPPZkdUUjW413y3dph2 aedjJmkKK1uOecQDFfgzwk MiT1VNrjBESlapytEXh6JT gfCLFkmOI7YVRyrBNtR9Ls HDCwUV5vtpy5VMF8FLxfEH EiMeB6LQWnhIYhIIGgmTuc AJzlq054TWW7BsCwRPGmaq FabAyioE0oSwXmPVF2SQYu NVgzXHBhcn0= CLINICAL HISTORY (test e7vouHFbESRvrVI8VeJbEI code = 3356) Mto9lfg6MlpZVqeZLsSAxp oNSzpmWqnv13tPC6bY36HP 0eVUGpGqS2AGTkgzR7Juc9 VEMuIOKmiKKkT968g9wtj6 yqlbZoeJK1qKnsGOCuihhq LyA3IDrsDBBcyrybKHd9MF ieJGBulVO6LQMkuKJvS7Mi AOUsRB0zjkr5ZKK0MEnoFG NwYjB7CPIegDRbZGVwzZxa LMzwh113WTD2QpFqYBWlnc OdcTqlaY6fMhBwAJFBYHH7 de5yy92qkRZkIIYdJBGqYm i0nHIxoGVoBOAyDTCri8r0 bZHwPtIsk7iybirkNTY3 SPECIMEN SOURCE (test a8pmmPPjAHStnBG8YnTtDY code = 3377) Mbq8noz2MbfVVrqEDbMOxn jRKgbqUftl60jLM9vC55YI 7uCQHyNaT6FUJtvtE3Adu3 ENDzNUCsxPMiD551p8uof1 gblvExbSA9mMeuGPUctcji QxO2KNjbVLTiortkUAu2VQ juRZQzoXK6VMQgbWMpR3Fy UEThZU1zvrq0GNR5TCrqGT VmHvO0GYXtfNOnLZKmwDqd APaup818KFW5XkSqPVYftg EehXshdC8wAyXkRMBFDmEg YI4syDLgMIJarQ2pAXQjX9 o7V4PyQ3SzYQddE4gexQ8w MBTuFMZLt2e3mIdmU42hs5 3hi7mhoN0yOHafwE1rDYJv HCJNmR9pe1ipCAexv5UqcS MsIHJhbmRvbVxwYXJ9 GROSS DESCRIPTION (test m6znvMVeIRVbxNDrHkCsKK code = 3366) DaXLJsf8fdAYTknOTeUtBj MzNcZnRuYmpcdWMxXGRlZm Sgv9xwh005dDQbt3edECUA vddsrQk0r0vnWZUzGuH5mP SeXKhoV4yrjiIuePUtUKXv SMs0wC45ZUDkiY4djTGnXX glxfSaPuO0QYxwZILyIaZ2 ISJsjTIbHURiQ9ecABKdCF tsWJIsXSihxKBcBXK5xAvs e5T7hTNfkQCoiUqlRhAdXv YhADQVv3GoSFb1gFloM8Kp JFVhBiP0sHZiVMNpUJbmSX UsXJXfyfS2wL17LQnwiyT4 xTBca3Pgu64jz505hU1sxG JbNQV0ASUbJQUgeDEzMYDt UGL7RMCklUDoB2t9XuHuwR GlG8A6CwQohXWuK1X5IpLf sETvO5G4UvPghHBfXJSraW BwLy5qoEGhdENmsc8wad16 XXU7z0LuhNqkODD5ETJ3Gy YoGp2vuDWmNRNbTHFxsUIi WDSbHC1yxYLlMYQyuM8kbz xjXHBnYnJkcmhlYWRccGdi mqVzFz3weEejKHZ0JLgqQ3 tnfU1iVrH2ENbzW6ytrB0c JXv3ESmzyHJ1NQZwzJ6dFF 1htumhy0khFjQhQE7uvztn h4hdUtSqCL9ymsr5f0crIx YcNC7pixprm9gdZlTcBPwk SHEhnllxBDHja2DdovvfJN Mqa6AiG2EixWkyF84jhPhi X00yJZYncSvthC6xgRagkT 5cZjBcZnMyNFxwYXJkXHBs YWluXGYxXGZzMjBcbGFuZz EwMzNcaGljaFxmMVxkYmNo QTOiEOcpI6veJvPnPyEuTZ BBLiBSZWNlaXZlZCBpbiBm v2UyBYogiiMoZTPcfPCbCG dpdGggdGhlIHBhdGllbnRc P9N4kwMcMM4kDXGjXSIfO0 GbCLWjI14mALZrbT9gIUMz CV7cJKUcn6MkpxByboqvH2 6qq84owG5cqBBkNXOwOIZp t80rhRW1erFpCxXbMVUhXV AnFT1cNGQulgQab0Z5QKSj b3P8JZTvIIFmlYHebdpzNM 62YKdjWG98HWagKY9nLEQd AwGRaVDzm8OuL8tnRS4ceQ Nvz4KzdEc4fCQjIWvsMQJw vS3ndK4pNXAlYQiahlBcvB luZSBCLiBSZWNlaXZlZCBp ycLmd3QjIGyvkgKxRDFquN VkIHdpdGggdGhlIHBhdGll uyOvN3G0qpUqSV1pUTOzOH NdI3XpUIPoE42zSUSisQ5u JXTvRF6vPHTblPlme2cvFB ApgP6eUTCisDbqBjTljpQv U07lg8ucsKEbv4ZgSlYesQ TsZKZop1IryGAwOSOqsrws h23vrTO1dTGotCNfzxNcG2 veVwXhipSeuIggESTap13w FV96UCdaMA3kLSbiIS0tMF WkPUXtAZHbGGR1MGZzOkJ4 IDAuMiBjbSBhbmQgbWVhc3 YcsC7fYHUsZlA9WYCbMxK0 CRUhFbMusTTojtFfE5onQM xtyNRkBWYfIYGefFYbaD9n pxJpolUskMYwpDK3FWEtjM 0mrC63edTmasTZGN7hgNfn BCxayF7hBEGaGZUjZ6Gtye XwIOuvUHAtsz1jeGpbCPhw RjNjKSIqf2d0uRQ4qQWtmL D1eAMzjCetVtYkEF8gcMVm WK4tMNbhZGmpjeLth1ZnQI 42aCYdszUxvjPbXmdnx6Yx wYOzRaipHEWiXLXra63ucC A2bxHxSsH4MFPaDEIpigIg DaQ6WN0wuSzybgDmj8B6WI Wmh3K6XQOlMD6prL6yPZnh IHNpemUgZnJvbSAwLjMgeC SbHnGuxHYfIiAkD06pnY3x JN80VWudHU9lKKroKJ5dDB NtIGFuZCBtZWFzdXJpbmcg UF0eTUtoXA01ZDzoIA6zSX VgFBqoAJNhL3YdB4M2JN0m VGhlIHNwZWNpbWVuIGlzIH Q3Pi9riTInJQFxxxC3y7Lv TLvnNALdDsydnV4cWMjqdl JvM1cFCIQknr4= MICROSCOPIC DESCRIPTION d1rwjZAfCQMoyUM3LlZoXE (test code = 3371) Kjt0kuk2MtwSRqeULwTPcd eQTunaUegg98fBY7cV56KH 3sIATgLfZ9SEXtwgT5Ngs5 HRBaHYRqzAAzD500q4pms5 vqpoVqhFB4iUlpVBCyxquh ExO7PVytCIEclbkuZKb8NI bsVGDvcOC7CXLjnXGkH5Sg SURtXW5hgck0NXB4OApaXJ GgTfD1VVAjrANfMCChiJwc UGrqd819VOR1VbKyADJwqt GoqKeyaD7sHfPaVJJLSWFj FR5eGKuoU0xeD3RhHMVuOL asrUjqi3coEZ7aEM1qpZyd wlYwJ8vgjMZftZCjfnJjFm dkST1sMFAhbgrdFBUjSg3t Wz3xs9agelvkeQWbahJgvT 0wnZLroHT1aN8xAKPddpAr t2RqdpJyLJ3aaLHddFPtpI EuTQG7g7RoVKDuQSZbhdKa PHnhX60ijrB2DEjqZIZpQP 6qKF4eJQlniTdua8PqD1Se exFezUVhv21zE5MluJTgkt GvklSlr1JjtgAagqBga2X2 gF2sCBH6PCfgpb3wALcgLI J9 [facility] [id number] 18:24:44Surgical Pathology Report Case: [id number] Authorizing Provider: Dewayne Wise MD Collected:01/09/2022 11:31 AM Ordering Location: [facility] Endoscopy Received: 01/09/2022 03:51 PM Services [...] ROUTINE STAINS Signing Pathologist Direct Phone Line: [phone] signed by Evelin Wharton MD on 01/12/2022 at 6:24 [id number] reflux disease, polyp of colonA. Polyp, colon- [...] tissue ranging in size from 0.3 x 0.2x 0.2 cm to 0.4 x 0.3 x 0.2 cm and measuring 1.0 x 0.7 x 0.2 cm in aggregate. The specimen is submitted in toto in C1.KHHA-B. No high-grade dysplasia or malignancy is identified. C. No significant inflammation, intestinal metaplasia, dysplasia or malignancy is seen. No Helicobacter microorganisms are seen on routine stains.POC-Glucose [id number] 13:54:18 Test Item Value Reference Range Interpretation Comments POC-Glucose Meter (test 133 mg/dL 70-110 H : TE STED AT [facility] code = 1538) [address] [place] [address], [facility] 30: Shipping And Receiving Operator/Techni miguelina ID = [id number] for Marybel Earl Lab Interpretation (test Abnormal code = 79820-4) [facility] [id number] 13:54:18 Test Item Value Reference Range Interpretation Comments POC-Glucose Meter (test 133 mg/dL 70-110 H : TE STED AT [facility] code = 1538) [address] [place] [address], [facility] 30: Shipping And Receiving Operator/Techni miguelina ID = [id number] for Marybel Earl Lab Interpretation (test Abnormal code = 30021-9) [facility]-Glucose [id number] 13:54:18 Test Item Value Reference Range Interpretation Comments POC-Glucose Meter (test 133 mg/dL 70-110 H : TE STED AT [facility] code = 1538) [address] [place] [address], 770 30: Shipping And Receiving Operator/Techni miguelina ID = [id number] for Rajat, Marybel Lab Interpretation (test Abnormal code = 79379-0) [facility]-Glucose [id number] 13:54:18 Test Item Value Reference Range Interpretation Comments POC-Glucose Meter (test 133 mg/dL 70-110 H : TE STED AT [facility] code = 1538) [address] [place] [address], 770 30: Shipping And Receiving Operator/Techni miguelina ID = [id number] for Rajat, Marybel Lab Interpretation (test Abnormal code = 38014-5) [facility]-Glucose [id number] 13:54:18 Test Item Value Reference Range Interpretation Comments POC-Glucose Meter (test 133 mg/dL 70-110 H : TE STED AT [facility] code = 1538) [address] [place] [address], 770 30: Shipping And Receiving Operator/Techni miguelina ID = [id number] for Rajat, Marybel Lab Interpretation (test Abnormal code = 36323-4) [facility]-Glucose [id number] 13:54:18 Test Item Value Reference Range Interpretation Comments POC-Glucose Meter (test 133 mg/dL 70-110 H : TE STED AT [facility] code = 1538) [address] [place] [address], 770 30: Shipping And Receiving Operator/Techni miguelina ID = [id number] for Rajat, Marybel Lab Interpretation (test Abnormal code = 47204-6) [facility]-Glucose [id number] 13:54:18 Test Item Value Reference Range Interpretation Comments POC-Glucose Meter (test 133 mg/dL 70-110 H : TE STED AT [facility] code = 1538) [address] [place] [address], 770 30: Shipping And Receiving Operator/Techni miguelina ID = [id number] for Rajat, Marybel Lab Interpretation (test Abnormal code = 50522-4) [facility]-GLUCOSE [id number] 13:54:18 Test Item Value Reference Range Interpretation Comments POC-GLUCOSE METER 133 mg/dL 70-110 H : TESTED A T [facility] 6720 (BEAKER) (test code = MIRNA Delgadillo [facility], 1538) 41493: Shipping And Receiving Operator/Techni miguelina ID = [id number] for Marybel Pina POCT-GLUCOSE [id number] 10:12:16 Test Item Value Reference Range Interpretation Comments POC-GLUCOSE METER 135 mg/dL 70-110 H : TESTED A T [facility] 6720 (BEAKER) (test code = MIRNA Delgadillo [facility], 1538) 75392: Shipping And Receiving Operator/Techni miguelina ID = [id number] for MAYELA BROWNING SARS-CoV2/RT-PCR (Asymptomatic ONLY)2022-01-09 09:03:44 Test Item Value Reference Interpretation Comments Range SARS-COV2/RT-PCR Negative Negative The SARS-Co V-2 (test code = target nucleic 93165-8) acids are not detected in thi s [...] revoked sooner. Fact Sheet for Healthcare Providers: https://www.[employer].com/Documents/Xp ert%20Xpress%20SAR S%20CoV-2/Fact%20S heets/302-3802%20S ARS-COV-2%20HEALTH CARE%20PROVIDERS%2 0FACT%20SHEET.pdf Fact Sheet for Healthcare Patients: https://www.[employer]/Documents/Xp ert%20Xpress%20SAR S%20CoV-2/Fact%20S heets/302-3801%20S ARS-COV-2%20PATIEN T%20FACT%20SHEET.p df Lab Interpretation Normal (test code = 24613-0) [facility]2022-01-09 09:03:44 Test Item Value Reference Interpretation Comments Range SARS-COV2/RT-PCR Negative Negative The SARS-Co V-2 (test code = target nucleic 45053-6) acids are not detected in thi s [...] revoked sooner. Fact Sheet for Healthcare Providers: https://www.[employer]/Documents/Xp ert%20Xpress%20SAR S%20CoV-2/Fact%20S heets/302-3802%20S ARS-COV-2%20HEALTH CARE%20PROVIDERS%2 0FACT%20SHEET.pdf Fact Sheet for Healthcare Patients: https://www.[employer]/Documents/Xp ert%20Xpress%20SAR S%20CoV-2/Fact%20S heets/302-3801%20S ARS-COV-2%20PATIEN T%20FACT%20SHEET.p df Lab Interpretation Normal (test code = 19576-5) [facility]2022-01-09 09:03:44 Test Item Value Reference Interpretation Comments Range SARS-COV2/RT-PCR Negative Negative The SARS-Co V-2 (test code = target nucleic 08259-2) acids are not detected in thi s [...] revoked sooner. Fact Sheet for Healthcare Providers: https://www.[employer]/Documents/Xp ert%20Xpress%20SAR S%20CoV-2/Fact%20S heets/3023802%20S ARS-COV-2%20HEALTH CARE%20PROVIDERS%2 0FACT%20SHEET.pdf Fact Sheet for Healthcare Patients: https://www.[employer]/Documents/Xp ert%20Xpress%20SAR S%20CoV-2/Fact%20S heets/302-3801%20S ARS-COV-2%20PATIEN T%20FACT%20SHEET.p df Lab Interpretation Normal (test code = 45395-0) [facility]2022-01-09 09:03:44 Test Item Value Reference Interpretation Comments Range SARS-COV2/RT-PCR Negative Negative The SARS-Co V-2 (test code = target nucleic 43974-3) acids are not detected in thi s [...] revoked sooner. Fact Sheet for Healthcare Providers: https://www.[employer]/Documents/Xp ert%20Xpress%20SAR S%20CoV-2/Fact%20S heets/302-3802%20S ARS-COV-2%20HEALTH CARE%20PROVIDERS%2 0FACT%20SHEET.pdf Fact Sheet for Healthcare Patients: https://www.[employer]/Documents/Xp ert%20Xpress%20SAR S%20CoV-2/Fact%20S heets/302-3801%20S ARS-COV-2%20PATIEN T%20FACT%20SHEET.p df Lab Interpretation Normal (test code = 34299-2) [facility]2022-01-09 09:03:44 Test Item Value Reference Interpretation Comments Range SARS-COV2/RT-PCR Negative Negative The SARS-Co V-2 (test code = target nucleic 06957-3) acids are not detected in thi s [...] revoked sooner. Fact Sheet for Healthcare Providers: https://www.[employer]/Documents/Xp ert%20Xpress%20SAR S%20CoV-2/Fact%20S heets/3023802%20S ARS-COV-2%20HEALTH CARE%20PROVIDERS%2 0FACT%20SHEET.pdf Fact Sheet for Healthcare Patients: https://www.[employer]/Documents/Xp ert%20Xpress%20SAR S%20CoV-2/Fact%20S heets/3023801%20S ARS-COV-2%20PATIEN T%20FACT%20SHEET.p df Lab Interpretation Normal (test code = 01986-9) [facility]2022-01-09 09:03:44 Test Item Value Reference Interpretation Comments Range SARS-COV2/RT-PCR Negative Negative The SARS-Co V-2 (test code = target nucleic 33080-4) acids are not detected in thi s specimen. Nega tive results do not preclude SARS-C oV-2 infection [...] revoked sooner. Fact Sheet for Healthcare Providers: https://www.[employer]/Documents/Xp ert%20Xpress%20SAR S%20CoV-2/Fact%20S heets/302-3802%20S ARS-COV-2%20HEALTH CARE%20PROVIDERS%2 0FACT%20SHEET.pdf Fact Sheet for Healthcare Patients: https://www.[employer]/Documents/Xp ert%20Xpress%20SAR S%20CoV-2/Fact%20S heets/302-3801%20S ARS-COV-2%20PATIEN T%20FACT%20SHEET.p df Lab Interpretation Normal (test code = 44492-4) [facility]2022-01-09 09:03:44 Test Item Value Reference Interpretation Comments Range SARS-COV2/RT-PCR Negative Negative The SARS-Co V-2 (test code = target nucleic 69086-6) acids are not detected in thi s [...] revoked sooner. Fact Sheet for Healthcare Providers: https://www.[employer]/Documents/Xp ert%20Xpress%20SAR S%20CoV-2/Fact%20S heets/302-3802%20S ARS-COV-2%20HEALTH CARE%20PROVIDERS%2 0FACT%20SHEET.pdf Fact Sheet for Healthcare Patients: https://www.[employer]/Documents/Xp ert%20Xpress%20SAR S%20CoV-2/Fact%20S heets/302-3801%20S ARS-COV-2%20PATIEN T%20FACT%20SHEET.p df Lab Interpretation Normal (test code = 07600-4) [facility])2022-01-09 09:03:44 Test Item Value Reference Range Interpretation Comments SARS-COV2/RT-PCR Negative Negative The SARS-Co V-2 target (test code = nucleic acids a re not 4933303) detected in thi s specimen. Negative result [...] revoked sooner. Fact Sheet for Healthcare Providers: https://www.[employer]/Documents/Xpert%20Xpress%20SARS%20CoV-2/Fact%20Sheets/3023802%29SNYI-WFE-1%20 HEALTHCARE%20PROVIDERS%20FACT%20SHEET.pdf Fact Sheet for Healthcare Patients: https://www.[employer]/Documents/Xpert%20Xp ress%20SARS%20CoV-2/Fact%20Sheets/3023801%59QGCZ-VLO-9%20PATIENT%20FACT%20SHEET .[id number] 14:57:00 Test Item Value Reference Range Interpretation Comments SURG (test code = SURG) RUN DATE: 08/26/20 [facility] [place] [facility] PAGE 1 RUN TIME: 1457 Specimen Inquiry RUN USER: INTERFACE PATIENT: PEPE ACOSTA LOC: ANDI U #: [id number] AGE/SX: 55/F ROOM: RE08/23/20[facility] DR: Tapan Harper MD : 69 BED: DIS: STATUS: DEP SDC TLOC: SPEC #: [id number] RECD: 08/23/20 STATUS: KRISTNI RELang #: [id number] AN: 08/23/20 [facility] DR: Tapan Harper MD ENTERED: 08/23/20 SP TYPE: SURG OTHR DR: Jaron Irving DO ORDERED: SURG PATH LVL 02/01 COPIES TO: Jaron Irving DO [address] [place] [address] Tapan Harper MD [address] [place] [address] HISTOLOGY: TISSUE ID BLK PCS [...] - R10.84; K59.00 CPT CODES CPT CODE(S): 31004P6 , , , , , , FINAL DIAGNOSIS A. Colon, right, biopsy: COLONIC MUCOSA WITH NO PATHOLOGIC DIAGNOSIS B. Colon, mid, biopsy: COLONIC MUCOSA WITH NO PATHOLOGIC DIAGNOSIS CONTINUED ON NEXT PAGE RUN DATE: 08/26/20 [facility] PAGE 2 RUN TIME: 1457 Specimen Inquiry RUN USER: INTERFACE SPEC #: [id number] PATIENT: PEPE ACOSTA #[id number] (Continued) FINAL DIAGNOSIS (Continued) C. Colon, left, [...] all as C. ba/nr Grossing performed at [facility] Pathology, [address] [place] [address], [address], [place] [address]. Casino Floor Supervisor: Leeroy Jimenes M.D. MICROSCOPIC DESCRIPTION A. [...] 08/26/20 1457 END OF REPORT GLUCOSE BEDSIDE [id number] 08:29:00 Test Item Value Reference Range Interpretation Comments GLUCOSE BEDSIDE TESTING (test code 156 mg/dL 70-110 H = GLUBED) BASIC METABOLIC [id number] 12:40:00 Test Item Value Reference Range Interpretation [...] CA) 9.0 MG/DL 8.5-10.1 N BASIC METABOLIC [id number] 12:37:00 Test Item Value Reference Range Interpretation [...] 9.0 MG/DL 8.5-10.1 N COVID 19 INHOUSE [id number] 12:37:00 Test Item Value Reference Range Interpretation Comments COVID 19 INHOUSE AG NEGATIVE Negative Per manu facturer, (test code = negative result s should [id number]) be treated aspr esumptive and, if inconsi [...] symptoms co nsistent with COVID-19. CBC W/AUTO [id number] 12:23:00 Test Item Value Reference Range Interpretation [...] (test code NO DIFF/SCN CRITERIA = MDIFF) [id number] 15:34:00 RUN DATE: 12/13/19 [facility] PAGE 1 RUN TIME: 1535 Specimen Inquiry RUN USER: INTERFACE ---- --------PATIENT: FREDERICKPEPE LOC: GLADYS U #: [id number] AGE/SX: 54/F ROOM: RE12/11/19REG DR: Zacarias Rodriguez MD : 69 BED: DIS: STATUS: [facility] TLOC: SPEC #: [id number] RECD: 12/11/19 STATUS: KRISTIN [place] #: [id number] AN: 12/11/19 [facility] DR: Zacarias Rodriguez MD ENTERED: 12/11/19 SP TYPE: SURG OTHR DR: Jaron Irving DO ORDERED: SURG PATH LVL 01/31 COPIES TO: Jaron Irving DO [address] [place] [address] Zacarias Rodriguez MD [address] [place] [address] HISTOLOGY: TISSUE ID BLK PCS DIANE LEV PROCEDURE DISPOSITION ____ ___ ___ ___ GASTRIC ANTRUM A 1 3 GASTRIC ANTRUM B 1 3 PROCEDURES: SURG PATH LVL 4 (12/11/191053) TISSUES: A. GASTRIC ANTRUM - GASTRIC BIOPSY B. GASTRIC ANTRUM - DISTAL GASTRIC BIOPSY CLINICAL HISTORY EPIGASTRIC PAIN -R10.13; NAUSEA -R11.0; VOMITING -R11.10 CPT CODES CPT CODE(S): 96708N0 , , , , , , FINAL [...] #: [facility]:[id number] PATIENT: PEPE ACOSTA #[id number] (Continued)------ ------ FINAL DIAGNOSIS (Continued) NEGATIVE FOR HELICOBACTER PYLORI ORGANISMS GROSS DESCRIPTION A. Gastric biopsy. Received in formalin is a vazquez tissue fragment, 0.5 cm, all as A. B. Distal gastric biopsy. Received in formalin is a vazquez tissue fragment, 0.3 cm, all as B. shivam/nr Grossing performed at [facility] Pathology, [address] [place] [address], [address], [place] [address]. Casino Floor Supervisor: Leeroy Jimenes M.D. MICROSCOPIC DESCRIPTION A. [...] 12/13/19 1534 END OF REPORT GLUCOSE BEDSIDE [id number] 06:17:00 Test Item Value Reference Range Interpretation Comments GLUCOSE BEDSIDE TESTING (test code 170 mg/dL 70-110 H = GLUBED) UR HCG [id number] 11:12:00 Test Item Value Reference Range Interpretation Comments UR HCG QUAL (test code = HCGQLU) NEGATIVE NEGATIVE Notes Date/Time Note Provider Source 2020-08-23 08:52:00-00:00 [id number] [facility] [address] [place] [address] PATIENT NAME: PEPE ACOSTA ADMIT DATE: 0 ACCOUNT NO: [id number] ROOM NO: AGE: 55 REPORT TYPE: OPERATIVE REPORT SEX: F ADMITTING PHYSICIAN: ATTENDING PHYSICIAN: Tapan Harper MD OPERATION DATE: 08/23/2020 PREOPERATIVE DIAGNOSES: Coli tis, colonic ulceration surveillance ____ progress. POSTOPERATIVE DIAGNOSIS: See below. PROCEDURES: 1. Colonoscopy. 2. Segmental biopsy for colon x 3 biopsy bottle. SURGEON: Tapan Harper MD BELT TURNER: ANESTHESIA: Administered by department of anesth esia. INDICATION: Colitis, colonic ulceration surveill ance ____ progress. COMPLEXITY: Moderate. TOLERANCE TO ANESTHESIA: Excellent. PREP: [place] prep right 2/3, mid 2/3, left 2/3, total /. Marginal preparation. Lesions cannot be ruled out. PROCEDURE IN DETAIL: Procedure, possible complic ation, and alternatives including but not limited to possibility of blee ding, perforation, tear, infection, sepsis, need for surgery, need for bl ood transfusion, and anesthesia-related problem i ncluding but not limited to possibility of bleeding, perforation, tear, infection, sepsis, need for s urgery, need for blood transfusion, rare fatalities related to anesthesia explained to the patient and informed consent obtained. T he patient was placed in the left lateral position. After appropriate level of anesthesia, digital anorectal examination was performed which was normal other than gr yann II external hemorrhoid and grade I internal hemorrhoids x 2. Forward-view retroflexion in this area revealed scattered erosions. Scattered erosions noted throughout the colon in sigmoid, descending, transverse, ascending colon, cecum, and ileocecal valve area . Ileocecal bulb had an ulceration also. However, preparation is limited , as a result other lesions cannot be ruled out. Due to these findings, mult iple biopsies done. My assessment is that her condition has improved, h owever, not totally resolved. PATIENT NAME: PEPE ACOSTA 9314 Having done the above procedure and having done all the segmental biopsies on way back and as much visuali zation as possible, the colonoscope and colonoscopic accessories were removed. Th e patient's rectal area cleaned out in a respectful manner. The patient has been [facility] ondition to postoperative recovery, from there to home. IMPRESSION: Colitis. Scattered colonic ulcers garcia ve improved; however, the patient still has the disease. PLAN: 1. Await biopsy results. 2. Continue on the same medicine. 3. We will check our chart. If she did not have any Crohn's disease workup, this will be done including small bowel capsule endoscopy. COMPLICATIONS: None. The patient tolerated the procedure well. DISPOSITION: As above. Dictated By: Tapan Harper MD WT: OP:L.RENETTA/HOMERO/NTS Conf#: [id number]/DID#: [id number] Authenticated by Tapan Harper MD On 08/30/2020 08:30:15 AM at 0830 PATIENT NAME: PEPE ACOSTA 9314 2020-08-22 10:59:00-00:00 [id number] [address] PATIENT NAME: PEPE ACOSTA ADMIT DATE: 0 ACCOUNT NO: [id number] ROOM NO: AGE: 55 REPORT TYPE: eELECTROCARDIOGRAM SEX: F ADMITTING PHYSICIAN: ATTENDING PHYSICIAN: Tapan Harper MD Order: [id number] Test Reason : PRE OP Test Date/Time Stamp: WedAug 22 2020 10:59:16 Blood Pressure : / mmHG Vent. Rate : 066 BPM Atrial Rate : 066 BPM P-R Int : 158 ms QRS Dur : 084 ms QT Int : 428 ms P-R-T Axes : 000 183 152 degree s QTc Int : 448 ms Normal sinus rhythm Right superior axis deviation Abnormal ECG No previous ECGs available Confirmed by JOHNATHON THOMPSON MD ([id number]) on 11/05/2019 10:27:01 PM Referred By: Tapan Harper Confirmed by:JOHNATHON SANTIZO MD at 2227 PATIENT NAME: PEPE ACOSTA 9314 2019-12-11 10:59:00-00:00 [facility] ([facility]) Post Anesthesia Evaluation REPORT#:[id number] REPORT STATUS: Signed DATE:12/11/19 TIME:1059 PATIENT: PEPE ACOSTA UNIT #: [id number] ROOM/BED: : 67 AGE: 54 SEX: F ATTEND: Leticia Rodriguez MD ADM AUTHOR: Gini Nieves MD * ALL edits or amendments must be made on the el DriveFactor/computer document * General Post-op: post surgery rounds Post Anesthesia Evaluation Anes. changes from pre-op eval ORM Surgeries: Surgery Date and Time: 12/11/2019 0730 Primary Procedure: ESOPHAGOGASTRODUODENOSCOPY Anesthetic: TIVA Date: 12/11/19 Level of consciousness: leila ent awake, able to answer questions, participate in this eval. Vital signs: Last Documented: Result Date Time Pulse Ox 95 02/10 0946 B/P 108/70 02/10 0946 O2 Delivery Room air 12/11 945 O2 Flow Rate 0.474314 12/11 945 Pulse 79 12/11 945 Resp 18 12/11 945 Temp 36.9 12/11 811 Cardiovascular: no change, CV system stable, vit al signs stable Respiratory/Airway: respiratory system stable, m aintains without support Pain: adequately controlled Hydration: adequate, euvolemic Temp status: greater than 96.8F, normothermic Presence of N/V: no Anesthesia complications: no Other changes requiring f/u: none Conclusions: no apparent anes. issues, outpts ev al prior DC home Electronically Signed by Gini Nieves MD on 12/02 at 1100 RPT #: [id number] END OF REPORT 2019-12-11 07:49:00-00:00 [id number] [facility] [address] [place] [address] PATIENT NAME: PEPE ACOSTA ADMIT DATE: 0 ACCOUNT NO: [id number] ROOM NO: AGE: 54 REPORT TYPE: OPERATIVE REPORT SEX: F ADMITTING PHYSICIAN: ATTENDING PHYSICIAN: Zacarias Rodriguez MD OPERATION DATE: 12/11/2019 PREOPERATIVE DIAGNOSIS: POSTOPERATIVE DIAGNOSIS: PROCEDURES: 1. EGD. 2. Biopsy from gastric body and antrum. 3. Biopsy from distal esophagus. SURGEON: Tapan Harper MD BELT TURNER: ANESTHESIA: Anesthesia by departmental anesthesi a. INDICATION AND PREOP: Abdominal pain, GERD, unco ntrolled. PREMEDICATIONS: Per anesthesia. COMPLEXITY: Moderate. TOLERANCE TO ANESTHESIA: Excellent. PROCEDURE IN DETAIL: Procedure, possible complic ation, and alternatives including but not limited to possibility of blee ding, perforation, tear, infection, sepsis, need for surgery, need for bl ood transfusion, anesthesia probe related problem, prolonged hospitalization rare fatalities, aspiration, etc. explained to the responsible democrat, consent was obtained. She was placed in left later al position. However, due to body habitus, position could not be obtained to a s atisfactory degree and procedure had to be done with that limitation. It appeared that the patient has not been swallo wing properly from the food debris in the larynx and the pharyngeal area. Th is was carefully cleared and passed. Esophagus was intubated. The esophagus from proximal to distal area showed lack of clearance and retained material; barrett hilton, distally, also esophagitis noted, biopsy in this area has been done. PATIENT NAME: PEPE ACOSTA [id number] Gastric visualization was re ally limited due to profuse amount of retained food material and bezoar, however, where visualized g astritis noted. Biopsy done. Duodenal bulb, duodenal angle ulcer showed perfu sed retention of solid and liquid debris as a resolved visualization was still limited and other conditions cannot be ruled out. Having done the above procedure in safe, diligen t, and satisfactory manner, endoscope and rest of the endoscopic accessories were removed. The patient's oropharyngeal area cleaned out in respec tful manner. The patient has been sent in excellent condition to the postoperative judy very, from there, she will be sent home. IMPRESSION: 1. Global lack of motility, retention as a result, please see the dictation for details. 2. Distal esophagitis, rule out short segment Ba rrett's. 3. Gastritis were visualized. 4. Gastric bezoar, gastric retention. 5. Duodenal retention. PLAN: 1. Low residue diet. 2. PPI. 3. Depending upon her full r ecord medication reviewed, further decision will be made and also depending upon biopsy result. COMPLICATIONS: None immediately. The patient tolerated the procedure well. DISPOSITION: As above. Dictated By: Tapan Harper MD WT: OP:L.HIM/MEANI/NTS Conf#: [id number]/DID#: [id number] Authenticated by Tapan Harper MD On 12/14/2019 02:52:57 PM at 1453 PATIENT NAME: PEPE ACOSTA [id number]
[2023-03-19 20:32] LABS: Albumin 3.9 g/dL (3.4-5.0); Bilirubin Total 0.3 mg/dL (0.2-1.0); Protein, Total 8.6 g/dL (6.4-8.2)
--- NOTE | 2023-03-19 21:10 | RAD REPORT ---
EXAM DESCRIPTION: RAD - Chest Single View - 03/19/2023 9:04 pm CLINICAL HISTORY: PAIN Chest pain. COMPARISON: <Comparisons> FINDINGS: Portable technique limits examination quality. The lungs are grossly clear. The heart is normal in size. No displaced fractures. IMPRESSION: No acute intrathoracic process suspected.
--- NOTE | 2023-03-19 21:16 | RAD REPORT ---
EXAM DESCRIPTION: US - UPPER EXTREMITY VENOUS BILAT - 03/19/2023 9:03 pm CLINICAL HISTORY: Arm pain and swelling COMPARISON: None. TECHNIQUE: Real-time sonographic evaluation of the bilateral upper extremity deep venous system was performed. FINDINGS: Normal compressibility, flow augmentation, phasic flow and spontaneous flow is identified in the bilateral upper extremity deep venous system. No intraluminal filling defects seen. IMPRESSION: No DVT in the bilateral upper extremity.
[2023-03-19 22:59] LABS: Specific Gravity 1.009 (1.005-1.030); Urine Bacteria 20-50 /HPF (<20); Urine Bilirubin NEGATIVE (Negative); Urine Blood Negative (Negative); Urine Clarity Turbid (Clear); Urine Color Light-Yellow (Yellow); Urine Glucose 2+ (Negative); Urine Mucus 1+ /HPF (None Seen); Urine Protein TRACE (Negative); Urine RBC <5 /HPF (None Seen); Urine Urobilinogen Normal (Normal); Urine pH 5.5 (5.0-7.0)
[2023-03-19] MEDS ORDERED: CIPROFLOXACIN HCL 500 MG TAB ONE (23:57)
[2023-03-20] MEDS ORDERED: FENTANYL CITR 100 MCG/2 ML ONE (00:22)
[2023-03-20] MEDS ORDERED: ONDANSETRON 4 MG/2 ML VIAL ONE (00:25)
--- NOTE | 2023-03-20 01:22 | ER ---
Nurse's Notes [facility] Name: Maria De Jesus Acosta Age: 58 yrs Sex: Female : 1965 Arrival Date: 03/19/2023 Time: 19:19 Bed 6 Private MD: Diagnosis: UTI/ Urinary tract infection, site not specified-persistent;Tachycardia, unspecified;Elevated lactate Presentation: 03/19 19:30 Chief complaint: Patient states: I have real bad pain running from my middle of my hb stomach to my lower back, I haven't been able to drink water or pee a lot. I feel really nauseous. Coronavirus screen: Vaccine status: Patient reports receiving the 2nd dose of the covid vaccine. booster; Moderna Client denies travel out of the [place] in the last 14 days. At this time, the client does not indicate any symptoms associated with coronavirus-19. Ebola Screen: Patient negative for fever greater than or equal to 101.5 degrees Fahrenheit, and additional compatible Ebola Virus Disease symptoms Patient denies exposure to infectious person. Patient denies travel to an Ebola-affected area in the 21 days before illness onset. No symptoms or risks identified at this time. Risk Assessment: Do you want to hurt yourself or someone else? Patient reports no desire to harm self or others. Note Came last week was treated for UTI. Onset of symptoms is unknown. 19:30 Method Of Arrival: Ambulatory hb 19:30 Acuity: EMERALD 3 hb 19:36 Initial Sepsis Screen: Does the patient meet any 2 criteria? RR > 20 per min. HR > 90 hb bpm. Yes Does the patient have a suspected source of infection? Yes: Dysuria/Frequency/Urgency/UTI. Triage Assessment: 19:36 General: Appears in no apparent distress. uncomfortable, ill, obese, Behavior is hb cooperative, appropriate for age. Pain: Complains of pain in right upper quadrant Pain radiates to mid back area Pain currently is 7 out of 10 on a pain scale. Also complains of nausea, sleeplessness. EENT: No deficits noted. No signs and/or symptoms were reported regarding the EENT system. Neuro: Level of Consciousness is awake, alert, obeys commands, Oriented to person, place, time, situation, Appropriate for age. Cardiovascular: No deficits noted. Respiratory: Airway is patent Respiratory effort is even, unlabored, Respiratory pattern is symmetrical, tachypnea. GI: No deficits noted. No signs and/or symptoms were reported involving the gastrointestinal system. : Reports pain flank(s), upper quadrant(s) mid back urinary frequency, with minimal output. Derm: No deficits noted. No signs and/or symptoms reported regarding the dermatologic system. Musculoskeletal: No deficits noted. No signs and/or symptoms reported regarding the musculoskeletal system. Historical: - Allergies: 19:32 Doxycycline; hb 19:32 kiwi; hb 19:32 metoclopramide HCl; hb 19:32 orange juice; hb 19:32 Reglan; hb - Home Meds: 19:32 Hydromorphone Oral for Severe Pain [Active]; hb - PMHx: 19:32 Asthma; CHF; COPD; Crohn's; Diabetes - NIDDM; Hypertension; Nasal cancer; hb - PSHx: 19:32 Appendectomy; Cholecystectomy; Ligation of fallopian tube; Shoulder; hb - Immunization history:: Client reports receiving the 2nd dose of the Covid vaccine. - Social history:: Smoking status: Patient denies any tobacco usage or history of. Screenin:51 [facility] ED Fall Risk Assessment (Adult) History of falling in the last 3 months, lg3 including since admission No falls in past 3 months (0 pts). Abuse screen: Denies threats or abuse. Denies injuries from another. Nutritional screening: No deficits noted. Tuberculosis screening: No symptoms or risk factors identified. Assessment: 19:51 General: Appears in no apparent distress. uncomfortable, Behavior is calm, cooperative. lg3 Pain: Complains of pain in back and abdomen Pain currently is 7 out of 10 on a pain scale. Neuro: No deficits noted. Seymour Agitation-Sedation Scale (RASS): 0 - Alert and Calm Level of Consciousness is awake, alert, obeys commands, Oriented to person, place, time, situation. Cardiovascular: No deficits noted. Denies chest pain, shortness of breath, Capillary refill < 3 seconds Clubbing of nail beds is absent JVD is absent Patient's skin is warm and dry. Respiratory: No deficits noted. Airway is patent Respiratory effort is even, unlabored, Respiratory pattern is symmetrical, tachypnea Breath sounds are clear bilaterally. GI: No deficits noted. Abdomen is round non-distended, obese, Bowel sounds present X 4 quads. Reports lower abdominal pain, cramping, nausea. : Reports burning with urination, cramping, inability to void, urinary frequency. EENT: No deficits noted. No signs and/or symptoms were reported regarding the EENT system. Derm: No deficits noted. No signs and/or symptoms reported regarding the dermatologic system. Skin is intact, is healthy with good turgor, Skin is dry, Skin is normal, Skin temperature is warm. Musculoskeletal: No deficits noted. No signs and/or symptoms reported regarding the musculoskeletal system. Circulation, motion, and sensation intact. Range of motion: intact in all extremities. 20:35 Reassessment: Patient appears in no apparent distress at this time. Patient and/or jb4 family updated on plan of care and expected duration. Pain level reassessed. Patient is alert, oriented x 3, equal unlabored respirations, skin warm/dry/pink. 21:09 Reassessment: Patient appears in no apparent distress at this time. No changes from lg3 previously documented assessment. Patient and/or family updated on plan of care and expected duration. Pain level reassessed. Patient is alert, oriented x 3, equal unlabored respirations, skin warm/dry/pink. Patient states symptoms have not improved. 22:41 Reassessment: No changes from previously documented assessment. Patient and/or family lg3 updated on plan of care and expected duration. Pain level reassessed. Patient is alert, oriented x 3, equal unlabored respirations, skin warm/dry/pink. 03/20 01:18 Reassessment: Patient appears in no apparent distress at this time. No changes from lg3 previously documented assessment. Patient and/or family updated on plan of care and expected duration. Pain level reassessed. Patient is alert, oriented x 3, equal unlabored respirations, skin warm/dry/pink. Vital Signs: 03/19 19:30 Weight 142.88 kg; Height 5 ft. 3 in. ; Pain 7/10; hb 19:33 BP 127 / 89; Pulse 112; Resp 24; Temp 97.2; Pulse Ox 96% ; hb 19:51 BP 161 / 88; Pulse 111; Resp 21 S; Pulse Ox 97% on R/A; lg3 20:52 BP 136 / 77; Pulse 106; Resp 16; Pulse Ox 95% on R/A; jb4 21:09 BP 128 / 90; Pulse 115; Resp 17 S; Pulse Ox 98% on R/A; lg3 22:17 BP 145 / 83; Pulse 117; Resp 21 S; Pulse Ox 97% on R/A; as7 23:55 BP 124 / 80; Pulse 117; Resp 20 S; Pulse Ox 96% on R/A; lg3 19:30 Body Mass Index 55.80 (142.88 kg, 160.02 cm) hb 19:30 Pain Scale: Adult hb ED Course: 19:23 Patient arrived in ED. jj6 19:32 Triage completed. hb 19:33 Evelia Haque FNP-C is PHCP. snw 19:33 Juanito Santillan MD is Attending Physician. snw 19:33 Arm band placed on right wrist. hb 19:50 Blood Culture Adult (2) Sent. lg3 19:50 CBC with Diff Sent. lg3 19:50 CMP Sent. lg3 19:50 Lactate w/ 2H reflex if indic. Sent. lg3 19:51 Patient has correct armband on for positive identification. Placed in gown. Bed in low lg3 position. Call light in reach. Side rails up X 1. Client placed on continuous cardiac and pulse oximetry monitoring. NIBP monitoring applied. satellite project site monitor on. Door closed. Noise minimized. Warm blanket given. 19:51 Protime (+inr) Sent. lg3 19:51 Ptt, Activated Sent. lg3 19:51 Inserted saline lock: 18 gauge in right antecubital area, using aseptic technique. lg3 Blood collected. 19:53 Ginna Valenzuela, RN is Primary Nurse. lg3 20:00 Inserted saline lock: 18 gauge in left antecubital area, using aseptic technique. Blood jb4 collected. 20:00 Second set of blood cultures drawn by me. jb4 21:05 UPPER EXTREMITY VENOUS BILAT In Process Unspecified. EDMS 21:06 Chest Single View XRAY In Process Unspecified. EDMS 22:47 Urinalysis w/ reflexes Sent. lg3 22:47 Blood Culture Adult (2) Sent. lg3 22:58 Urinalysis w/ reflexes Sent. as7 03/20 01:19 Rafael Huggins is Hospitalizing Provider. snw 02:14 Lactate w/ 2H reflex if indic. Sent. vc1 02:21 No provider procedures requiring assistance completed. Patient admitted, IV remains in lg3 place. intact, No redness/swelling at site. Administered Medications: 03/19 20:10 Drug: NS 0.9% IV 1000 ml Route: IV; Rate: 75 ml/hr; Site: left antecubital; lg3 20:11 Drug: Promethazine IVP 25 mg Route: IVP; Site: left antecubital; lg3 20:43 Follow up: Response: No adverse reaction; Marked relief of symptoms lg3 20:11 Drug: NS 0.9% IV 250 ml Route: IV; Rate: bolus; Site: left antecubital; lg3 20:43 Follow up: IV Status: Completed infusion; IV Intake: 250ml lg3 20:11 Drug: fentaNYL (PF) IVP 25 mcg Route: IVP; Site: left antecubital; lg3 20:43 Follow up: Response: No adverse reaction; Marked relief of symptoms lg3 23:54 Drug: Ciprofloxacin PO 500 mg Route: PO; lg3 03/20 00:21 Follow up: Response: No adverse reaction lg3 00:20 Drug: fentaNYL (PF) IVP 25 mcg Route: IVP; Site: left antecubital; lg3 00:21 Drug: Ondansetron IVP 4 mg Route: IVP; Site: left antecubital; lg3 Medication: 03/19 22:41 VIS not applicable for this client. lg3 Intake: 20:43 IV: 250ml; Total: 250ml. lg3 Outcome: 03/20 01:21 Decision to Hospitalize by Provider. snw 02:21 Admitted to Med/surg accompanied by tech, via stretcher, room 409, Report called to [facility] Evelyn 02:21 Condition: stable 02:21 Instructed on the need for admit, Demonstrated understanding of instructions. 02:22 Patient left the ED. lg3 Signatures: Dispatcher [employer] EDMS Evelia Haque, TOBACCO DRYING MACHINE OPERATOR-C TOBACCO DRYING MACHINE OPERATOR-Csnw Azul Ta RN RN hb Bryson, James, RN RN jb4 Ginna Valenzuela RN RN lg3 Lorena Shore6 Brigitte Perez RN RN vc1 [place] Reina as7 Corrections: (The following items were deleted from the chart) 01:18 03/19 22:41 Reassessment: No changes from previously documented assessment. Patient lg3 and/or family updated on plan of care and expected duration. Pain level reassessed. Patient is alert, oriented x 3, equal unlabored respirations, skin warm/dry/pink. lg3
--- NOTE | 2023-03-20 01:22 | EDPHYS ---
Physician Documentation [facility] Name: Maria De Jesus Acosta Age: 58 yrs Sex: Female : 1965 Arrival Date: 03/19/2023 Time: 19:19 Bed 6 Private MD: ED Physician Juanito Santillan HPI: 03/19 20:31 This 58 yrs old Female presents to ER via Ambulatory with complaints of Low snw Back Pain. 20:31 The patient presents with pain that is acute, with no known mechanism of injury. Onset: snw The symptoms/episode began/occurred 1 week(s) ago, and became worse today, and became persistent. Severity of symptoms: At their worst the symptoms were moderate, severe. Historical: - Allergies: 19:32 Doxycycline; hb 19:32 kiwi; hb 19:32 metoclopramide HCl; hb 19:32 orange juice; hb 19:32 Reglan; hb - Home Meds: 19:32 Hydromorphone Oral for Severe Pain [Active]; hb - PMHx: 19:32 Asthma; CHF; COPD; Crohn's; Diabetes - NIDDM; Hypertension; Nasal cancer; hb - PSHx: 19:32 Appendectomy; Cholecystectomy; Ligation of fallopian tube; Shoulder; hb - Immunization history:: Client reports receiving the 2nd dose of the Covid vaccine. - Social history:: Smoking status: Patient denies any tobacco usage or history of. ROS: 20:07 Eyes: Negative for injury, pain, redness, and discharge. snw 20:07 Cardiovascular: Negative for chest pain, palpitations, and edema, Respiratory: Negative for shortness of breath, cough, wheezing, and pleuritic chest pain. 20:07 Back: Negative for injury and pain, : Negative for injury, bleeding, discharge, and swelling, MS/Extremity: Negative for injury and deformity, Skin: Negative for injury, rash, and discoloration, ecchymosis to abdomen from blood thinners second to blood clot from PICC line Neuro: Negative for headache, weakness, numbness, tingling, and seizure, Psych: Negative for depression, anxiety, suicide ideation, homicidal ideation, and hallucinations. 20:07 Constitutional: Positive for body aches, fatigue, malaise, poor PO intake. 20:07 ENT: Positive for sinus pain. 20:07 Neck: Positive for pain at rest. 20:07 Abdomen/GI: Positive for abdominal pain, nausea, vomiting. Exam: 20:01 Head/Face: Normocephalic, atraumatic. Eyes: Pupils equal round and reactive to light, snw extra-ocular motions intact. Lids and lashes normal. Conjunctiva and sclera are non-icteric and not injected. Cornea within normal limits. Periorbital areas with no swelling, redness, or edema. ENT: Nares patent. No nasal discharge, no septal abnormalities noted. Tympanic membranes are normal and external auditory canals are clear. Oropharynx with no redness, swelling, or masses, exudates, or evidence of obstruction, uvula midline. Mucous membranes moist. Neck: Trachea midline, no thyromegaly or masses palpated, and no cervical lymphadenopathy. Supple, full range of motion without nuchal rigidity, or vertebral point tenderness. No Meningismus. Chest/axilla: Normal chest wall appearance and motion. Nontender with no deformity. No lesions are appreciated. Cardiovascular: Regular rate and rhythm with a normal S1 and S2. No gallops, murmurs, or rubs. Normal PMI, no JVD. No pulse deficits. Respiratory: Lungs have equal breath sounds bilaterally, clear to auscultation and percussion. No rales, rhonchi or wheezes noted. No increased work of breathing, no retractions or nasal flaring. 20:01 Skin: Warm, dry with normal turgor. Normal color with no rashes, no lesions, and no evidence of cellulitis. MS/ Extremity: Pulses equal, no cyanosis. Neurovascular intact. Full, normal range of motion. Neuro: Awake and alert, GCS 15, oriented to person, place, time, and situation. Cranial nerves II-XII grossly intact. Motor strength 5/5 in all extremities. Sensory grossly intact. Cerebellar exam normal. Normal gait. 20:01 Constitutional: The patient appears alert, awake, anxious, obese, uncomfortable. 20:01 Abdomen/GI: Inspection: bruising, on lovenox, distension, that is moderate, obese 20:01 Back: pain, that is moderate, of the mid back area. Vital Signs: 19:30 Weight 142.88 kg; Height 5 ft. 3 in. ; Pain 7/10; hb 19:33 BP 127 / 89; Pulse 112; Resp 24; Temp 97.2; Pulse Ox 96% ; hb 19:51 BP 161 / 88; Pulse 111; Resp 21 S; Pulse Ox 97% on R/A; lg3 20:52 BP 136 / 77; Pulse 106; Resp 16; Pulse Ox 95% on R/A; jb4 21:09 BP 128 / 90; Pulse 115; Resp 17 S; Pulse Ox 98% on R/A; lg3 22:17 BP 145 / 83; Pulse 117; Resp 21 S; Pulse Ox 97% on R/A; as7 23:55 BP 124 / 80; Pulse 117; Resp 20 S; Pulse Ox 96% on R/A; lg3 19:30 Body Mass Index 55.80 (142.88 kg, 160.02 cm) hb 19:30 Pain Scale: Adult hb MDM: 19:33 Patient medically screened. snw 19:59 ED course: Pt here last week for UTI, dorsalgia. Pt toolk all outpatient abx. Pt with w markers for sepsis but no hypotension, will not give IV NS bolus 2nd to CHF dx and hx of such on x-ray last week. 20:30 Data reviewed: vital signs, nurses notes. [facility] 03/20 01:16 Management of patient was discussed with the following: Hospitalist: Discussed with sunil Christian, PAc. Pt remains tachycardic, c/o nausea and low back discomfort. Repeat lactate 2.7 just as initial. Pt was just here last week with similar s/s and placed on Vantin po. Pt was receiving lovenox for right arm DVT. US today negative for thrombus. Pt prescribed 2 additional injections.. Counseling: I had a detailed discussion with the patient and/or guardian regarding: the historical points, exam findings, and any diagnostic results supporting the discharge/admit diagnosis, lab results, radiology results, the need for further work-up and treatment in the hospital. Response to treatment: There is no appreciated change of the patient's symptoms at this time, the patient continues to show tachycardia. 03/19 19:40 Order name: Blood Culture Adult (2) [facility] 03/19 19:40 Order name: CBC with Diff; Complete Time: 20:27 [facility] 03/19 19:40 Order name: CMP; Complete Time: 20:36 [facility] 03/19 19:40 Order name: Lactate w/ 2H reflex if indic.; Complete Time: 20:31 snw 03/19 19:40 Order name: Protime (+inr); Complete Time: 20:27 snw 03/19 19:40 Order name: Ptt, Activated; Complete Time: 20:27 snw 03/19 19:40 Order name: Urinalysis w/ reflexes; Complete Time: 23:05 snw 03/19 20:02 Order name: Glucose, Ancillary Testing; Complete Time: 20:27 EDMS 03/19 23:06 Order name: Urine Culture EDMS 03/19 23:50 Order name: Lactate Sepsis 2 HR Follow-up; Complete Time: 23:51 EDMS 03/20 02:00 Order name: Lactate w/ 2H reflex if indic. sb4 03/19 19:40 Order name: Chest Single View XRAY; Complete Time: 21:24 snw 03/19 20:04 Order name: UPPER EXTREMITY VENOUS BILAT; Complete Time: 21:24 EDMS 03/19 19:40 Order name: EKG; Complete Time: 19:41 snw 03/19 19:40 Order name: Accucheck; Complete Time: 19:50 snw 03/19 19:40 Order name: Cardiac monitoring; Complete Time: 19:47 snw 03/19 19:40 Order name: EKG - Nurse/Tech; Complete Time: 20:10 snw 03/19 19:40 Order name: IV Saline Lock - Large Bore; Complete Time: 19:50 snw 03/19 19:40 Order name: Labs collected and sent; Complete Time: 19:50 snw 03/19 19:40 Order name: O2 Per Protocol; Complete Time: 19:50 snw 03/19 19:40 Order name: O2 Sat Monitoring; Complete Time: 19:50 snw 03/19 19:40 Order name: Vital Signs; Complete Time: 19:50 snw 03/19 23:53 Order name: VS Recheck; Complete Time: 00:04 snw EC/19 20:15 Rate is 101 beats/min. Rhythm is regular. QRS [place] is Normal. [place] interval is normal. snw QRS interval is normal. Clinical impression: Sinus tachycardia. Administered Medications: 20:10 Drug: NS 0.9% IV 1000 ml Route: IV; Rate: 75 ml/hr; Site: left antecubital; lg3 20:11 Drug: Promethazine IVP 25 mg Route: IVP; Site: left antecubital; lg3 20:43 Follow up: Response: No adverse reaction; Marked relief of symptoms lg3 20:11 Drug: NS 0.9% IV 250 ml Route: IV; Rate: bolus; Site: left antecubital; lg3 20:43 Follow up: IV Status: Completed infusion; IV Intake: 250ml lg3 20:11 Drug: fentaNYL (PF) IVP 25 mcg Route: IVP; Site: left antecubital; lg3 20:43 Follow up: Response: No adverse reaction; Marked relief of symptoms lg3 23:54 Drug: Ciprofloxacin PO 500 mg Route: PO; lg3 03/20 00:21 Follow up: Response: No adverse reaction lg3 00:20 Drug: fentaNYL (PF) IVP 25 mcg Route: IVP; Site: left antecubital; lg3 00:21 Drug: Ondansetron IVP 4 mg Route: IVP; Site: left antecubital; lg3 Disposition Summary: 03/20/23 01:21 Hospitalization Ordered Hospitalization Status: Observation snw Provider: Rafael Huggins snlv Location: Telemetry/MedSurg (observation) snw Condition: Stable snw Problem: an ongoing problem snw Symptoms: are unchanged snw Bed/Room Type: Standard snw Room Assignment: [id number](03/20/23 01:40) Diagnosis - UTI/ Urinary tract infection, site not specified - persistent snw - Tachycardia, unspecified snw - Elevated lactate snw Forms: - Medication Reconciliation Form snw - SBAR form snw Addendum: 03/26/2023 13:46 Co-signature as Attending Physician, Juanito Santillan MD I reviewed the patient's care r n provided by the Advanced Practice Provider and agree with the diagnosis and treatment plan. Signatures: Dispatcher [employer] Yary Agustin RN RN mw Waters, Shelly, INSPECTOR FINAL ASSEMBLY MECHANICAL-C INSPECTOR FINAL ASSEMBLY MECHANICAL-Csnw Juanito Santillan MD MD rn Baxter, Heather, RN RN hb Gibson, Lacie, RN RN lg3 Corrections: (The following items were deleted from the chart) 03/19 20:04 19:56 Extrem Venous W Compression [email or web address] ordered. EDMS EDMS 03/20 01:22 01:16 Management of patient was discussed with the following: Hospitalist: Pt remains snw tachycardic, c/o nausea and low back discomfort. Repeat lactate 2.7 just as initial. Pt was just here last week with similar s/s and placed on Vantin po. Pt was receiving lovenox for right arm DVT. US today negative for thrombus. Pt prescribed 2 additional injections.. snw 01:40 01:21 snw mw
--- NOTE | 2023-03-20 01:23 | P.HP ---
Certification for Inpatient Patient admitted to: Observation With expected LOS: <2 Midnights Patient will require the following post-hospital care: None Practitioner: I am a practitioner with admitting privileges, knowledge of patient current condition, hospital course, and medical plan of care. Services: Services provided to patient in accordance with Admission requirements found in Title 42 Section 412.3 of the Code of Federal Regulations Patient History Date of Service: 03/20/23 Primary Care Provider: Maria Fernanda Reason for admission: UTI, Sepsis History of Present Illness: Ms. 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 She was seen here 4 days ago for similar symptoms, had a negative abdominal CT, was diagnosed with UTI and discharged with antibiotics. She returns today with worsening pain, decreased PO intake, and nausea/vomiting. She was tachycardic and tachypneic upon arrival. Labs are significant for sodium 134, glucose 266, creatinine 1.04, AST 50, ALT 88, lactate 2.7. Urine positive for UTI (worse than UA 4 days ago) with LE, WBC, and bacteria. 2 hour repeat lactate remained at 2.7 and tachycardia (110s) has persisted despite 250 IVF bolus (additional fluids deferred due to history of CHF and pulmonary edema on CXR 4 days ago). She was additionally give 500 mg PO ciprofloxacin. She still complains of moderate radiating abdominal pain. Patient will be admitted for further management. Allergies doxycycline Allergy (Mild, Verified 10/16/22 08:51) Nausea/Vomiting orange juice [[place] Juice] Allergy (Mild, Verified 10/16/22 08:51) Nausea/Vomiting kiwi Allergy (Verified 10/16/22 08:51) Anaphylaxis metoclopramide HCl [From Reglan] Allergy (Verified 10/16/22 08:51) Unknown Home medications list reviewed: Yes Home Medications: ALPRAZolam [Xanax*] 2 mg PO TIDP PRN 10/04/19 Albuterol Sulfate [Proair Hfa] 1 puff IH Q4HP PRN 10/04/19 Atorvastatin Calcium [Lipitor] 40 mg PO DAILY 10/04/19 Colchicine [Colcrys *] 0.6 mg PO DAILY 10/04/19 Fluticasone/Umeclidin/Vilanter [Trelegy Ellipta 100-62.5-25] 1 puff IH DAILY 10/04/19 Gabapentin 600 mg PO TID 10/04/19 Hum Insulin NPH/Reg Insulin Hm [Humulin 70-30 Vial] 80 unit SQ BREAKFAST 10/04/19 Hydrocodone 5/APAP 325 [[place] 5/325*] 1 tab PO PRN PRN 10/04/19 Pantoprazole [Protonix Tab*] 40 mg PO BID 10/04/19 Zolpidem Tartrate [Ambien*] 10 mg PO BEDTIME 10/04/19 Albuterol Neb [Proventil 0.083% Neb Soln] 2.5 mg NEB [id number] #120 amp 08/06/22 Ipratropium Neb [Atrovent*] 0.5 mg NEB [id number] #120 amp 08/06/22 Dicyclomine [Bentyl*] 10 mg PO QID 09/03/22 Prucalopride Succinate [Motegrity] 2 mg PO DAILY 09/03/22 Albuterol Neb [Proventil 0.083% Neb Soln] 2.5 mg NEB [id number] #60 amp 09/05/22 Dapagliflozin/Metformin HCl [Xigduo Xr 5 mg-1,000 mg Tablet] 1 each PO DAILY 30 Days #30 tab 09/05/22 Hydralazine [Apresoline*] 25 mg PO TID #90 tab 09/05/22 Metoprolol Succinate [Toprol Xl*] 50 mg PO BID #60 tab 09/05/22 cloNIDine HCL [Catapres*] 0.1 mg PO TID #90 tab 09/05/22 - Past Medical/Surgical History Diabetic: Yes -: Crohn's disease -: CHF -: HTN -: COPD -: Asthma -: CVA -: DM- Insulin Dependent -: TIA -: sleep apnea -: Gastroparesis -: Appendectomy -: Cholecystectomy -: -: Tubal Ligation -: Lap. 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 - Family History Mother -: Heart disease, Hypertension, Diabetes, Stroke, Cancer Father -: Diabetes, Blood disorders, Kidney disease Notes: leukemia - Social History Smoking Status: Former smoker Alcohol use: No CD- Drugs: No Caffeine use: Yes Place of Residence: Home Review of Systems Gastrointestinal: Nausea, Vomiting, Abdominal Pain Musculoskeletal: Back Pain Physical Examination - Vital Signs Temperature: 97.2 F Blood Pressure: 124/80 Pulse: 117 Respirations: 20 Pulse Ox (%): 96 - Physical Exam General: Alert, In no apparent distress, Obese HEENT: Atraumatic, Normocephalic Neck: Supple Respiratory: Expiratory wheezes Cardiovascular: Normal pulses, Regular rate/rhythm Gastrointestinal: Normal bowel sounds, Non-distended Musculoskeletal: No contractures, No erythema Integumentary: Other (abdominal bruising secondary to lovenox injections) Neurological: Normal speech, Normal affect - Studies Laboratory Data (last 24 hrs) 03/19/23 19:45: PT 11.7, INR 1.06, APTT 37.9 H 03/19/23 19:45: Sodium 134 L, Potassium 4.0, BUN 14, Creatinine 1.04 H, Glucose 266 H, Total Bilirubin 0.3, AST 50 H, ALT 88 H, Alkaline Phosphatase 113 03/19/23 19:45: WBC 5.60, Hgb 14.9, Hct 44.6, Plt Count 201 Assessment and Plan - Problems (Diagnosis) (1) UTI (urinary tract infection) Current Visit: Yes Status: Acute Qualifiers: Urinary tract infection type: acute cystitis Hematuria presence: without hematuria Qualified Code(s): N30.00 - Acute cystitis without hematuria (2) Sepsis Current Visit: Yes Status: Acute Qualifiers: Sepsis type: sepsis due to unspecified organism Sepsis acute organ dysfunction status: with acute organ dysfunction Severe sepsis acute organ dysfunction type: unspecified (3) Congestive heart failure Current Visit: Yes Status: Chronic Qualifiers: Heart failure type: diastolic Heart failure chronicity: chronic Qualified Code(s): I50.32 - Chronic diastolic (congestive) heart failure (4) Crohn's disease Current Visit: Yes Status: Chronic Qualifiers: Gastrointestinal tract location: unspecified location Digestive disease complication type: without complication Qualified Code(s): K50.90 - Crohn's disease, unspecified, without complications (5) GERD (gastroesophageal reflux disease) Current Visit: Yes Status: Chronic Qualifiers: Esophagitis presence: without esophagitis Qualified Code(s): K21.9 - Gastro-esophageal reflux disease without esophagitis (6) Diabetes mellitus Current Visit: No Status: Chronic Qualifiers: Diabetes mellitus type: type 2 Diabetes mellitus keno terminal operator insulin use: with keno terminal operator use Diabetes mellitus complication status: with hyperglycemia Qualified Code(s): E11.65 - Type 2 diabetes mellitus with hyperglycemia; Z79.4 - roasterman (current) use of insulin (7) HTN (hypertension) Current Visit: Yes Status: Chronic Qualifiers: Hypertension type: primary hypertension Qualified Code(s): I10 - Essential (primary) hypertension (8) Hyperlipidemia Current Visit: Yes Status: Chronic Qualifiers: Hyperlipidemia type: mixed hyperlipidemia Qualified Code(s): E78.2 - Mixed hyperlipidemia (9) Morbid obesity Current Visit: Yes Status: Chronic (10) Cancer of nasal cavities Current Visit: Yes Status: Chronic - Plan Patient is admitted for further management of severe sepsis secondary to UTI. Start IV Rocephin. She has been taking PO Vantin x 5 days. Blood and urine cultures obtained. Lactate trend 2.7 -> 2.7 -> pending. Adjust IV fluids accordingly. Consider repeat imaging if symptoms do not improve. CT abdomen 4 days ago negative. ACHS accu check with moderate sliding scale and diabetic diet. Check lipid panel and A1C. Monitor and replete electrolytes per protocol. Reconcile and continue home medications. She has been on lovenox for a DVT in her arm. US today is negative. Continue home dose. Full code. Discharge Plan: Home Plan to discharge in: 24 Hours - Advance Directives Does patient have a Living Will: No Does patient have a Durable POA for Healthcare: No - Code Status/Comfort Care Code Status Assessed: Yes Code Status: Full Code Physician Review: Patient Assessed, Agree with Above Assessment and Plan Critical Care: No Time Spent Managing Pts Care (In Minutes): 50
[2023-03-20] MEDS ORDERED: NA CHLORIDE 0.9% 1,000 ML IV SCH (03:12)
[2023-03-20] MEDS ORDERED: ACETAMINOPHEN 500 MG TAB PO PRN (03:12)
[2023-03-20] MEDS: CEFTRIAXONE 2,000 MG in NA CHLORIDE 0.9% 100 ML IV SCH ×2 (03:43→09:02)
[2023-03-20] MEDS: HYDROCODONE/APAP 7.5/325 MG TAB PO PRN ×2 (04:04→10:03)
[2023-03-20] MEDS: ONDANSETRON 4 MG/2 ML VIAL IV PRN ×4 (04:05→22:46)
[2023-03-20 04:45] LABS: Absolute Lymphocytes (CBC) 1.7 K/uL (0.7-4.9); Hematocrit 41.3 % (36.0-45.0); Lymphocytes % 28.1 % (15.3-44.8); MCV 96.1 fL (80-100); MPV 8.9 fL (7.6-11.3)
[2023-03-20 05:05] LABS: Albumin 3.5 g/dL (3.4-5.0); Bilirubin Total 0.4 mg/dL (0.2-1.0); Magnesium 1.4 mg/dL (1.6-2.4); Phosphorus 4.3 mg/dL (2.5-4.9); Potassium 3.6 mEq/L (3.5-5.1); Protein, Total 7.7 g/dL (6.4-8.2); Troponin High Sensitivity 9.2 pg/mL (<58.9)
[2023-03-20] MEDS ORDERED: Magnesium Sulfate 2gm IVPB 2 G/50 ML BAG IV ONE (09:00)
[2023-03-20] MEDS ORDERED: POTASSIUM CL SA 10 MEQ TAB PO ONE (09:00)
[2023-03-20] MEDS: Enoxaparin 120 MG/0.8 ML SYR SQ SCH ×2 (09:01→21:01)
[2023-03-20] MEDS: INSULIN -REGULAR HUMAN 50 UNIT/0.5 ML ML SQ SCH ×4 (09:01→21:12)
--- NOTE | 2023-03-20 13:05 | P.PN ---
Date of Service: 03/20/23 Patient seen and examined. She is complaining of uncontrolled back pain, worse on the right flank. Tachycardia noted. No recorded fever. Morbidly obese. Bilateral flank tenderness, worse on the right. Lungs clear to auscultate. No abdominal tenderness. Diagnosis: UTI/pyelonephritis. History of Crohn's disease. Plan: Recent antibiotic use for UTI. Recent hospitalization for sepsis treated with antibiotics, and upper extremity DVT Increased risk of MDR organism causing UTI. Patient is tachycardic but does not meet criteria for sepsis. We will switch IV meropenem. Obtain CT abdomen and pelvis. Follow urine culture Pain management as needed.
[2023-03-20] MEDS ORDERED: PROMETHAZINE INJ 25 MG/ML AMP IV ONE (13:48)
[2023-03-20] MEDS: MORPHINE 4 MG/ML SYR IV PRN ×2 (16:38→21:08)
[2023-03-20] MEDS ORDERED: Meropenem 500 MG in NA CHLORIDE 0.9% 100 ML IV SCH (17:00)
--- NOTE | 2023-03-20 17:37 | RAD REPORT ---
EXAM DESCRIPTION: CT - Abdomen Pelvis W Contrast - 03/20/2023 4:55 pm CLINICAL HISTORY: Abdominal pain COMPARISON: March 14, 2023 TECHNIQUE: Computed axial tomography of the abdomen and pelvis was obtained. 100 cc Isovue-300 is ad ministered intravenously. Oral contrast was given. All CT scans are performed using dose optimization technique as appropriate and may include automated exposure control or mA/KV adjustment according to patient size. FINDINGS: The liver, spleen, pancreas, adrenals and kidneys appear unremarkable. There is no evidence of diverticulitis No adnexal mass Cholecystectomy IMPRESSION: No acute abnormality displayed
[2023-03-20] MEDS: Meropenem 1,000 MG in NA CHLORIDE 0.9% 100 ML IV SCH (18:12)
[2023-03-21] MEDS: Meropenem 1,000 MG in NA CHLORIDE 0.9% 100 ML IV SCH ×3 (01:00→16:28)
[2023-03-21] MEDS: MORPHINE 4 MG/ML SYR IV PRN ×3 (04:19→19:49)
[2023-03-21 04:37] LABS: Potassium 4.1 mEq/L (3.5-5.1)
[2023-03-21 04:47] LABS: Magnesium 1.6 mg/dL (1.6-2.4); Phosphorus 4.5 mg/dL (2.5-4.9)
[2023-03-21] MEDS: ONDANSETRON 4 MG/2 ML VIAL IV PRN ×3 (06:30→20:00)
[2023-03-21] MEDS: INSULIN -REGULAR HUMAN 50 UNIT/0.5 ML ML SQ SCH ×4 (08:24→20:03)
[2023-03-21] MEDS: Enoxaparin 120 MG/0.8 ML SYR SQ SCH ×2 (08:26→20:00)
[2023-03-21] MEDS: HYDROCODONE/APAP 7.5/325 MG TAB PO PRN ×2 (11:32→16:33)
[2023-03-21] MEDS ORDERED: SODIUM CHLORIDE 0.9% 10ML INJ IV PRN (14:04)
--- NOTE | 2023-03-21 14:11 | P.PN ---
Subjective Date of Service: 03/21/23 Primary Care Provider: Maria Fernanda Chief Complaint: UTI, Sepsis Patient reports vomiting this morning. She also reports abdominal pain worse with meals and persistent bilateral flank pain worse on the right. No fever. Physical Examination - Vital Signs Temperature: 97.0 F Blood Pressure: 159/85 Pulse: 119 Respirations: 18 Pulse Ox (%): 93 - Physical Exam General: Alert, In no apparent distress, Oriented x3, Mild distress (Due to pain), Obese HEENT: Mucous membr. moist/pink Neck: Supple, JVD not distended Respiratory: Clear to auscultation bilaterally, Normal air movement Cardiovascular: No edema, Normal S1 S2, Other (Tachycardia) Gastrointestinal: Soft and benign, No tenderness, Other (Obese abdomen) Musculoskeletal: No swelling, Tenderness (Bilateral flank) Integumentary: No rashes, No cyanosis Neurological: Normal strength at 5/5 x4 extr Assessment And Plan - Current Problems (Diagnosis) (1) UTI (urinary tract infection) Current Visit: Yes Status: Acute Qualifiers: Urinary tract infection type: acute cystitis Hematuria presence: without hematuria Qualified Code(s): N30.00 - Acute cystitis without hematuria (2) Cancer of nasal cavities Current Visit: Yes Status: Chronic (3) Crohn's disease Current Visit: Yes Status: Chronic Qualifiers: Gastrointestinal tract location: unspecified location Digestive disease complication type: without complication Qualified Code(s): K50.90 - Crohn's disease, unspecified, without complications (4) GERD (gastroesophageal reflux disease) Current Visit: Yes Status: Chronic Qualifiers: Esophagitis presence: without esophagitis Qualified Code(s): K21.9 - Gastro-esophageal reflux disease without esophagitis (5) Morbid obesity Current Visit: Yes Status: Chronic - Plan Diagnosis: UTI/pyelonephritis. History of Crohn's disease. Plan: Recent antibiotic use for UTI. Recent hospitalization for sepsis treated with antibiotics, and upper extremity DVT Increased risk of MDR organism causing UTI. Patient is tachycardic but does not meet criteria for sepsis. Urine culture shows mixed growth. Continue IV meropenem. CT abdomen and pelvis reviewed and unremarkable. Pain management as needed. Start IV Protonix for GERD.
[2023-03-21] MEDS: DICYCLOMINE HCL 10 MG CAP PO SCH ×2 (16:29→20:01)
--- NOTE | 2023-03-21 17:35 | EKG ---
Test Date: 2023-03-19 Test Time: 20:10:04 Asset Protection Manager: MEASUREMENT RESULTS: Intervals: Rate: 101 [place]: 154 QRSD: 72 QT: 350 QTc: 453 [place]: P: 26 [place]: 154 QRS: 0 T: 20 INTERPRETIVE STATEMENTS: Sinus tachycardia Cannot rule out Anterior infarct, age undetermined Abnormal ECG Compared to ECG 09/03/2022 04:39:59 Myocardial infarct finding now present Electronically Signed On 03-21-23 17:33:46 CDT by Alhaji Loya
[2023-03-21] MEDS: PANTOPRAZOLE 40 MG INJ IVP SCH (19:59)
[2023-03-21] MEDS: ZOLPIDEM TARTRATE 10 MG TABLET PO SCH (20:01)
[2023-03-21] MEDS: ALPRAZOLAM 1 MG TABLET PO PRN (20:12)
[2023-03-21] MEDS: HYDRALAZINE HCL 25 MG TABLET PO SCH (20:13)
[2023-03-21] MEDS: METOPROLOL XL 50 MG TAB PO SCH (20:13)
[2023-03-21] MEDS: cloNIDine HCL 0.1 MG TAB PO SCH (20:14)
[2023-03-21] MEDS ORDERED: HOME MED 1 EA UNK (Gabapentin [Gabapentin] 600 MG Tablet) PO SCH (21:00)
[2023-03-21] MEDS ORDERED: GABAPENTIN 300 MG CAP PO ONE (22:00)
[2023-03-21] MEDS: IPRATROPIUM BROM 0.5MG/2.5ML NEB SCH (22:00)
[2023-03-22] MEDS: Meropenem 1,000 MG in NA CHLORIDE 0.9% 100 ML IV SCH ×3 (00:35→16:07)
[2023-03-22 02:33] VITALS: BMI 56.1
[2023-03-22] MEDS: IPRATROPIUM BROM 0.5MG/2.5ML NEB SCH ×4 (03:15→19:50)
[2023-03-22 04:53] LABS: Magnesium 1.5 mg/dL (1.6-2.4); Phosphorus 4.3 mg/dL (2.5-4.9); Potassium 3.7 mEq/L (3.5-5.1)
[2023-03-22] MEDS: PRUCALOPRIDE SUCCINATE 2 MG PO SCH (09:00)
[2023-03-22] MEDS ORDERED: MAGNESIUM SULFATE 1 gm IVPB 1 GM/100 ML BAG IV ONE (09:00)
[2023-03-22] MEDS ORDERED: POTASSIUM CL SA 10 MEQ TAB PO ONE (09:00)
[2023-03-22] MEDS: HOME MED 1 EA UNK (Fluticasone/Umeclidin/Vilanter [Trelegy Ellipta 100-62.5-25] Blst.W.Dev IH SCH (09:00)
[2023-03-22] MEDS: PANTOPRAZOLE 40 MG INJ IVP SCH ×2 (09:01→20:27)
[2023-03-22] MEDS: COLCHICINE 0.6 MG TAB PO SCH (09:01)
[2023-03-22] MEDS: HYDROCODONE/APAP 7.5/325 MG TAB PO PRN ×2 (09:01→16:06)
[2023-03-22] MEDS: ALPRAZOLAM 1 MG TABLET PO PRN (09:01)
[2023-03-22] MEDS: GABAPENTIN 300 MG CAP PO SCH ×3 (09:02→20:27)
[2023-03-22] MEDS: DICYCLOMINE HCL 10 MG CAP PO SCH ×4 (09:02→20:27)
[2023-03-22] MEDS: cloNIDine HCL 0.1 MG TAB PO SCH ×3 (09:02→20:29)
[2023-03-22] MEDS: HYDRALAZINE HCL 25 MG TABLET PO SCH ×3 (09:02→20:29)
[2023-03-22] MEDS: METOPROLOL XL 50 MG TAB PO SCH ×2 (09:02→20:28)
[2023-03-22] MEDS: Enoxaparin 120 MG/0.8 ML SYR SQ SCH ×2 (09:02→20:28)
[2023-03-22] MEDS: INSULIN -REGULAR HUMAN 50 UNIT/0.5 ML ML SQ SCH ×4 (09:02→20:27)
--- NOTE | 2023-03-22 13:20 | P.PN ---
Subjective Date of Service: 03/22/23 Primary Care Provider: Maria Fernanda Chief Complaint: UTI, Sepsis Patient reports feeling better today. She states that she tolerated her meal for the first time but ate little. She still report abdominal pain worse with meals No fever. Physical Examination - Vital Signs Temperature: 96.8 F Blood Pressure: 140/100 Pulse: 104 Respirations: 18 Pulse Ox (%): 95 - Physical Exam General: Alert, In no apparent distress, Oriented x3 HEENT: Mucous membr. moist/pink Neck: JVD not distended Respiratory: Clear to auscultation bilaterally, Normal air movement Cardiovascular: Regular rate/rhythm, Normal S1 S2 Gastrointestinal: Soft and benign, Non-distended, Tenderness (Epigastrium) Musculoskeletal: No swelling, No tenderness Integumentary: No rashes, No cyanosis Neurological: Normal strength at 5/5 x4 extr - Studies Microbiology Data (last 24 hrs): 03/19/23 22:42 Clean Catch Urine [place] Count - Final <10,000 CFU/ML. 03/19/23 22:42 Clean Catch Urine - Final MIXED FLAQUITA. Assessment And Plan - Current Problems (Diagnosis) (1) UTI (urinary tract infection) Current Visit: Yes Status: Acute Qualifiers: Urinary tract infection type: acute cystitis Hematuria presence: without hematuria Qualified Code(s): N30.00 - Acute cystitis without hematuria (2) Cancer of nasal cavities Current Visit: Yes Status: Chronic (3) Crohn's disease Current Visit: Yes Status: Chronic Qualifiers: Gastrointestinal tract location: unspecified location Digestive disease complication type: without complication Qualified Code(s): K50.90 - Crohn's disease, unspecified, without complications (4) GERD (gastroesophageal reflux disease) Current Visit: Yes Status: Chronic Qualifiers: Esophagitis presence: without esophagitis Qualified Code(s): K21.9 - Gastro-esophageal reflux disease without esophagitis (5) Morbid obesity Current Visit: Yes Status: Chronic - Plan Diagnosis: UTI/pyelonephritis. History of Crohn's disease. GERD Plan: Recent antibiotic use for UTI. Recent hospitalization for sepsis treated with antibiotics, and upper extremity DVT Increased risk of MDR organism causing UTI. Patient is tachycardic. She did not meet criteria for sepsis. Urine culture shows mixed growth. Continue IV meropenem. CT abdomen and pelvis reviewed and unremarkable. Pain management as needed. Continue IV Protonix for GERD. GI evaluation inpatient if available or outpatient. Diet as tolerated.
[2023-03-22] MEDS: ONDANSETRON 4 MG/2 ML VIAL IV PRN ×2 (13:40→20:39)
[2023-03-22] MEDS: ZOLPIDEM TARTRATE 10 MG TABLET PO SCH (20:29)
[2023-03-22] MEDS: MORPHINE 4 MG/ML SYR IV PRN (20:40)
[2023-03-23] MEDS: IPRATROPIUM BROM 0.5MG/2.5ML NEB SCH ×4 (01:16→19:30)
[2023-03-23] MEDS: ALPRAZOLAM 1 MG TABLET PO PRN ×2 (01:39→10:41)
[2023-03-23] MEDS: Meropenem 1,000 MG in NA CHLORIDE 0.9% 100 ML IV SCH ×3 (04:54→17:30)
[2023-03-23 06:15] LABS: Absolute Lymphocytes (CBC) 2.1 K/uL (0.7-4.9); Hematocrit 38.4 % (36.0-45.0); Lymphocytes % 35.8 % (15.3-44.8); MCV 97.3 fL (80-100); RBC Red Blood Cell Count 3.95 M/uL (3.86-4.86)
[2023-03-23 06:30] LABS: Albumin 3.2 g/dL (3.4-5.0); Bilirubin Total 0.3 mg/dL (0.2-1.0); C-Reactive Protein 17.1 mg/L (<3.00); Magnesium 1.6 mg/dL (1.6-2.4); Phosphorus 4.3 mg/dL (2.5-4.9); Potassium 3.9 mEq/L (3.5-5.1); Protein, Total 7.2 g/dL (6.4-8.2)
--- NOTE | 2023-03-23 07:37 | P.PN ---
Date of Service: 03/23/23 Subjective: not feeling good this morning wheezing/coughing worsened overnight radiating right sided pain without any improvement no nausea / vomiting ROS: 10 point ROS as noted above, otherwise negative Physical Exam: GEN: Alert, oriented, uncomfortable appearing HEENT: Normal conjunctiva, sclera anicteric CV: Regular rate and rhythm, no edema Pulm: mild labored respirations on 2L NC, b/l expiratory wheezes ABD: Soft, epigastric tenderness, R flank tenderness Integumentary: abdominal bruising secondary to lovenox injections Neuro: Normal speech, normal affect vitals reviewed Problem List: UTI/pyelonephritis, suspected History of Crohn's disease Gastroparesis, severe GERD acute on chronic COPD exacerbation chronic CHF DM2 Hypertension Hyperlipidemia Cancer of nasal cavities Recent hospitalization for sepsis treated with antibiotics, and upper extremity DVT (due to PICC) Increased risk of MDR organism causing UTI Venous doppler 03/19 - no DVT CT abdomen and pelvis 03/20 - unremarkable CXR 03/23 - mild CHF / volume overlord continue IV merrem, pt began to have some relief on 03/22, able to tolerate some PO Blood culture: NGTD Urine culture: mixed growth ID consulted pain medication as needed Continue IV Protonix GI consulted reports patient has severe gastroparesis and esophageal motility - suspect this is likely cause or main issue causing patient's pain was previously referred to [facility] for specialist. patient stated they were planning on gastric bypass due to severity of gastroparesis however delayed secondary to recent cancer diagnosis/treatment/hospitalization Dr. Kaur recommended continue home meds, no inpatient procedures, f/u with specialist wheezing, increased shortness of breath on 03/23 off trelegy for a few days - left at home; son to bring in nebs, steroids pulm consult if no improvement restart insulin 70/30 increase sliding scale to aggressive hyponatremia, pseuo; mostly corrected once account for hyperglycemia VTE: Lovenox Code: Full Dispo: Home ~2 days
[2023-03-23] MEDS: PRUCALOPRIDE SUCCINATE 2 MG PO SCH (09:00)
[2023-03-23] MEDS ORDERED: MAGNESIUM SULFATE 1 gm IVPB 1 GM/100 ML BAG IV ONE (09:00)
[2023-03-23] MEDS: HOME MED 1 EA UNK (Fluticasone/Umeclidin/Vilanter [Trelegy Ellipta 100-62.5-25] Blst.W.Dev IH SCH (09:00)
[2023-03-23] MEDS ORDERED: POTASSIUM CL SA 10 MEQ TAB PO ONE (09:00)
[2023-03-23] MEDS: COLCHICINE 0.6 MG TAB PO SCH (09:25)
[2023-03-23] MEDS: cloNIDine HCL 0.1 MG TAB PO SCH ×3 (09:25→20:37)
[2023-03-23] MEDS: PANTOPRAZOLE 40 MG INJ IVP SCH ×2 (09:25→20:37)
[2023-03-23] MEDS: Enoxaparin 120 MG/0.8 ML SYR SQ SCH ×2 (09:25→20:36)
[2023-03-23] MEDS: GABAPENTIN 300 MG CAP PO SCH ×3 (09:26→20:36)
[2023-03-23] MEDS: METOPROLOL XL 50 MG TAB PO SCH ×2 (09:26→20:37)
[2023-03-23] MEDS: DICYCLOMINE HCL 10 MG CAP PO SCH ×4 (09:26→20:37)
[2023-03-23] MEDS: INSULIN -REGULAR HUMAN 50 UNIT/0.5 ML ML SQ SCH ×4 (09:27→20:38)
[2023-03-23] MEDS: HYDRALAZINE HCL 25 MG TABLET PO SCH ×3 (09:27→20:37)
[2023-03-23] MEDS: HYDROCODONE/APAP 7.5/325 MG TAB PO PRN ×2 (09:36→15:41)
[2023-03-23] MEDS: GUAIFENESIN/CODEINE 5ML UCUP PO PRN ×2 (09:36→15:41)
[2023-03-23] MEDS: METHYLPREDNISOLONE 40 MG INJ IV SCH ×2 (09:36→20:38)
--- NOTE | 2023-03-23 09:49 | P.CNS ---
Date of Consult: 03/23/23 Reason for Consult: UTI Primary Care Provider: Maria Fernanda Chief Complaint: UTI, Sepsis History of Present Illness: Patient is a 58 yo female with a PMH of nasal cancer on chemotherapy, Crohn's disease, hypertension, CHF, COPD, Diabetes mellitus type 2 and recent DVT on lovenox who presented to the ED with complaints of abdominal pain. She was recently seen for similar symptoms 5 days ago during which she was diagnosed with UTI and sent home on antibiotics. However she presents to the ED with worsening abdominal pain radiating to her back, nausea/vomiting and decreased appetite. Urinalysis positive for LE, WBCs and bacteria and ID was consulted for further management. Allergies doxycycline Allergy (Mild, Verified 10/16/22 08:51) Nausea/Vomiting orange juice [[place] Juice] Allergy (Mild, Verified 10/16/22 08:51) Nausea/Vomiting kiwi Allergy (Verified 10/16/22 08:51) Anaphylaxis metoclopramide HCl [From Reglan] Allergy (Verified 10/16/22 08:51) Unknown Home medications list reviewed: Yes Home Medications: ALPRAZolam [Xanax*] 2 mg PO TIDP PRN 10/04/19 Albuterol Sulfate [Proair Hfa] 1 puff IH Q4HP PRN 10/04/19 Atorvastatin Calcium [Lipitor] 40 mg PO DAILY 10/04/19 Colchicine [Colcrys *] 0.6 mg PO DAILY 10/04/19 Fluticasone/Umeclidin/Vilanter [Trelegy Ellipta 100-62.5-25] 1 puff IH DAILY 10/04/19 Gabapentin 600 mg PO TID 10/04/19 Hum Insulin NPH/Reg Insulin Hm [Humulin 70-30 Vial] 80 unit SQ BREAKFAST 10/04/19 Hydrocodone 5/APAP 325 [[place] 5/325*] 1 tab PO PRN PRN 10/04/19 Pantoprazole [Protonix Tab*] 40 mg PO BID 10/04/19 Zolpidem Tartrate [Ambien*] 10 mg PO BEDTIME 10/04/19 Albuterol Neb [Proventil 0.083% Neb Soln] 2.5 mg NEB [id number] #120 amp 08/06/22 Ipratropium Neb [Atrovent*] 0.5 mg NEB [id number] #120 amp 08/06/22 Dicyclomine [Bentyl*] 10 mg PO QID 09/03/22 Prucalopride Succinate [Motegrity] 2 mg PO DAILY 09/03/22 Albuterol Neb [Proventil 0.083% Neb Soln] 2.5 mg NEB [id number] #60 amp 09/05/22 Dapagliflozin/Metformin HCl [Xigduo Xr 5 mg-1,000 mg Tablet] 1 each PO DAILY 30 Days #30 tab 09/05/22 Hydralazine [Apresoline*] 25 mg PO TID #90 tab 09/05/22 Metoprolol Succinate [Toprol Xl*] 50 mg PO BID #60 tab 09/05/22 cloNIDine HCL [Catapres*] 0.1 mg PO TID #90 tab 09/05/22 Oxycodone HCl/Acetaminophen [Oxycodone-Acetaminophn 2.5-325] 1 PO 03/20/23 - Past Medical/Surgical History Diabetic: Yes -: Crohn's disease -: CHF -: HTN -: COPD -: Asthma -: CVA -: DM- Insulin Dependent -: TIA -: sleep apnea -: Gastroparesis -: Appendectomy -: Cholecystectomy -: -: Tubal Ligation -: Lap. 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 - Family History Mother Medical History: Heart disease, Hypertension, Diabetes, Stroke, Cancer Father Medical History: Diabetes, Blood disorders, Kidney disease Notes: leukemia - Social History Smoking Status: Unknown if ever smoked Alcohol use: No CD- Drugs: No Caffeine use: Yes Place of Residence: Home Review of Systems 10-point ROS is otherwise unremarkable Gastrointestinal: Abdominal Pain Physical Examination Temp Pulse Resp BP Pulse Ox 96.7 F L 97 H 16 141/91 H 92 03/23/23 04:00 03/23/23 09:26 03/23/23 04:00 03/23/23 09:26 03/23/23 04:00 General: Alert, In no apparent distress, Oriented x3, Obese HEENT: Atraumatic, Normocephalic Neck: Supple, JVD not distended Respiratory: Crackles/rales (Audible without ), Expiratory wheezes, Other (2L NC) Cardiovascular: No edema, Regular rate/rhythm Gastrointestinal: Normal bowel sounds, Soft and benign, Tenderness (upon palpation, most prominent left middle/lower quadrant) Musculoskeletal: No clubbing, No swelling Integumentary: No rashes, No breakdown Neurological: Normal speech, Normal tone, Normal affect Laboratory Data - Reviewed Microbiology Data - Urine culture 03/19: Mixed isabel - Blood cultures 03/19: No growth to date Imagings Data: - CT Abdomen/Pelvis: "No acute abnormality displayed" Conclusions/Impression: Problem List CHF Hypertension COPD Diabetes Mellitus Type 2 Recent DVT on Lovenox Urinary Tract Infection Nasal Cancer on Chemotherapy * Allergy: Doxycycline, Metoclopramide, kiwi * Urinary Tract Infection - UA 03/19: LE 75, WBC 10-20, Bacteria 20-40 - Urine culture 03/19: Mixed Isabel. [place] Count <10,000 CFU/mL - CT Abdomen/Pelvis: "No acute abnormality displayed" - Currently on Meropenem (started 03/20) Abdominal pain epigastric region/left middle and lower quadrant: GI on case Blood cultures 03/19: No growth to date XR Chest 03/23: Mild CHF/ volume overload. No leukocytosis Afebrile Recommendations Urine culture colony count less than 10,000 CFU, mixed isabel. Denies any flank pain, suprapubic pain, dysuria, urinary frequency or urgency. Recent hospitalization for sepsis, High risk for MDR infection. - Discontinue Meropenem - Continue supportive care. GI on case for abdominal pain N/V with meals. ID will follow patient as needed. Case discussed with Ari Isbell. Thank you Dr. Santillan for consult.
[2023-03-23] MEDS: BENZONATATE 100 MG CAP PO PRN ×2 (09:50→15:41)
--- NOTE | 2023-03-23 12:28 | RAD REPORT ---
EXAM DESCRIPTION: RAD - Chest Single View - 03/23/2023 11:55 am CLINICAL HISTORY: sepsis Chest pain. COMPARISON: Chest Single View dated 03/19/2023; Chest Single View dated 03/14/2023; Chest Pa And Lat ( 2 Views) dated 10/28/2022; Chest Single View dated 09/04/2022 FINDINGS: Portable technique limits examination quality. Mild pulmonary edema suspected. The heart is upper limit normal size. No displaced fractures. IMPRESSION: Mild CHF/ volume overload.
[2023-03-23 12:40] LABS: Absolute Lymphocytes (CBC) 0.9 K/uL (0.7-4.9); Hematocrit 41.3 % (36.0-45.0); Lymphocytes % 11.9 % (15.3-44.8); MCV 96.9 fL (80-100); MPV 9.1 fL (7.6-11.3); RBC Red Blood Cell Count 4.27 M/uL (3.86-4.86)
[2023-03-23] MEDS: MORPHINE 4 MG/ML SYR IV PRN ×2 (12:42→20:41)
[2023-03-23 12:50] LABS: Protime INR 1.06
[2023-03-23 13:03] LABS: ALT/SGPT 77 U/L (13-56); AST/SGOT 42 U/L (15-37); Albumin 3.4 g/dL (3.4-5.0); Alkaline Phosphatase 96 U/L (45-117); BUN Blood Urea Nitrogen 11 mg/dL (7-18); Bicarbonate 28 mEq/L (21-32); Bilirubin Direct < 0.1 mg/dL (0-0.2); Bilirubin Indirect, Calculated ND mg/dL (0.2-0.8); Bilirubin Total 0.3 mg/dL (0.2-1.0); Glomerular Filtration Rate 73 ml/min (=/>90); Glucose Level 348 mg/dL (74-106); Lipase 20 U/L (13-75); Potassium 4.7 mEq/L (3.5-5.1); Protein, Total 7.7 g/dL (6.4-8.2); Sodium Level 129 mEq/L (136-145)
[2023-03-23] MEDS ORDERED: D50W 25 GM/50 ML SYRINGE IV PRN (16:57)
[2023-03-23] MEDS ORDERED: GLUCAGON 1 MG/VIAL IM PRN (16:57)
[2023-03-23] MEDS ORDERED: INSULIN 70/30 100 UNITS/ML SQ SCH (17:00)
[2023-03-23] MEDS ORDERED: INSULIN -REGULAR HUMAN 50 UNIT/0.5 ML ML IV ONE (20:26)
[2023-03-23] MEDS: ZOLPIDEM TARTRATE 10 MG TABLET PO SCH (20:37)
[2023-03-24] MEDS: Meropenem 1,000 MG in NA CHLORIDE 0.9% 100 ML IV SCH (00:06)
[2023-03-24] MEDS: INSULIN -REGULAR HUMAN 50 UNIT/0.5 ML ML SQ SCH ×6 (00:06→20:47)
[2023-03-24] MEDS: ALPRAZOLAM 1 MG TABLET PO PRN ×2 (00:10→10:59)
[2023-03-24] MEDS: IPRATROPIUM BROM 0.5MG/2.5ML NEB SCH ×4 (02:50→20:20)
[2023-03-24 06:06] LABS: Hematocrit 39.3 % (36.0-45.0); Lymphocytes % 13.2 % (15.3-44.8); MCV 96.3 fL (80-100); MPV 9.5 fL (7.6-11.3); RBC Red Blood Cell Count 4.08 M/uL (3.86-4.86)
[2023-03-24 06:28] LABS: Albumin 3.3 g/dL (3.4-5.0); Bilirubin Total 0.3 mg/dL (0.2-1.0); C-Reactive Protein 10.3 mg/L (<3.00); Magnesium 1.8 mg/dL (1.6-2.4); Phosphorus 3.2 mg/dL (2.5-4.9); Potassium 5.2 mEq/L (3.5-5.1); Protein, Total 7.3 g/dL (6.4-8.2)
--- NOTE | 2023-03-24 07:31 | P.PN ---
Date of Service: 03/24/23 Subjective: breathing seems a little easier today cough and wheezing ~slightly improved appetite slowly increasing, last BM this morning denies trouble urinating, but feels like theres less volume ROS: 10 point ROS as noted above, otherwise negative Physical Exam: GEN: Alert, oriented, uncomfortable appearing HEENT: Normal conjunctiva, sclera anicteric CV: Regular rate and rhythm, no edema Pulm: mild labored respirations on 2L NC, b/l expiratory wheezes ABD: Soft, mild epigastric tenderness, R flank tenderness Integumentary: abdominal bruising secondary to lovenox injections Neuro: Normal speech, normal affect vitals reviewed Problem List: UTI/pyelonephritis, suspected History of Crohn's disease Gastroparesis, severe GERD acute on chronic COPD exacerbation chronic CHF IDDM2 Hypertension Hyperlipidemia Cancer of nasal cavities Recent hospitalization for sepsis treated with antibiotics, and upper extremity DVT (due to PICC) Increased risk of MDR organism causing UTI Venous doppler 03/19 - no DVT CT abdomen and pelvis 03/20 - unremarkable CXR 03/23 - mild CHF / volume overlord ID consulted no growth, no fever, no leukocytosis, however was on antibiotics as outpatient recommended stop antibiotics and monitor IV merrem DC 03/24 Blood culture: NGTD Urine culture: mixed growth suspect symptoms secondary to chemo / chronic severe gastroparesis pain medication as needed Continue IV Protonix GI consulted reports patient has severe gastroparesis and esophageal motility - suspect this is likely cause or main issue causing patient's pain was previously referred to [facility] for specialist. patient stated they were planning on gastric bypass due to severity of gastroparesis however delayed secondary to recent cancer diagnosis/treatment/hospitalization Dr. Kaur recommended continue home meds, no inpatient procedures, f/u with specialist wheezing, increased shortness of breath on 03/23 off trelegy for a few days - left at home; son to bring in nebs, steroids pulm consult if no improvement restart insulin 70/30 increase sliding scale to aggressive confirm home regimen hyponatremia, pseudo; mostly corrected once account for hyperglycemia VTE: Lovenox Code: Full Dispo: Home ~1-2 days
[2023-03-24] MEDS ORDERED: MAGNESIUM SULFATE 1 gm IVPB 1 GM/100 ML BAG IV ONE (09:00)
[2023-03-24] MEDS: GUAIFENESIN/CODEINE 5ML UCUP PO PRN (09:18)
[2023-03-24] MEDS: BENZONATATE 100 MG CAP PO PRN (09:18)
[2023-03-24] MEDS: INSULIN 70/30 100 UNITS/ML SQ SCH ×2 (09:19→16:26)
[2023-03-24] MEDS: ONDANSETRON 4 MG/2 ML VIAL IV PRN (09:20)
[2023-03-24] MEDS: METOPROLOL XL 50 MG TAB PO SCH ×2 (09:21→20:52)
[2023-03-24] MEDS: COLCHICINE 0.6 MG TAB PO SCH (09:21)
[2023-03-24] MEDS: GABAPENTIN 300 MG CAP PO SCH ×3 (09:21→20:53)
[2023-03-24] MEDS: Enoxaparin 120 MG/0.8 ML SYR SQ SCH ×2 (09:21→20:50)
[2023-03-24] MEDS: cloNIDine HCL 0.1 MG TAB PO SCH ×3 (09:22→20:53)
[2023-03-24] MEDS: HYDRALAZINE HCL 25 MG TABLET PO SCH ×3 (09:22→20:52)
[2023-03-24] MEDS: METHYLPREDNISOLONE 40 MG INJ IV SCH (09:23)
[2023-03-24] MEDS: PRUCALOPRIDE SUCCINATE 2 MG PO SCH (09:23)
[2023-03-24] MEDS: DICYCLOMINE HCL 10 MG CAP PO SCH ×4 (09:23→20:53)
[2023-03-24] MEDS: PANTOPRAZOLE 40 MG INJ IVP SCH ×2 (09:23→20:53)
[2023-03-24] MEDS: HOME MED 1 EA UNK (Fluticasone/Umeclidin/Vilanter [Trelegy Ellipta 100-62.5-25] Blst.W.Dev IH SCH (09:24)
[2023-03-24] MEDS: MORPHINE 4 MG/ML SYR IV PRN ×2 (09:25→20:53)
--- NOTE | 2023-03-24 10:01 | P.PN ---
Date of Service: 03/24/23 Chief Complaint: UTI, Sepsis Subjective: No new changes. Patient in bed, awake and oriented x 4, on 2L NC. No acute events reported overnight. Review of Systems 10-point ROS is otherwise unremarkable Gastrointestinal: Abdominal Pain epigastic area radiating to right flank around to back after eating. Nausea. Physical Examination Temp Pulse Resp BP Pulse Ox 97 F 89 16 152/79 H 95 03/24/23 08:00 03/24/23 09:22 03/24/23 08:00 03/24/23 09:22 03/24/23 08:00 General: In no apparent distress, Oriented x3, Obese HEENT: Atraumatic, Normocephalic Neck: Supple, JVD not distended Respiratory: Crackles/rales, Expiratory wheezes, On 2L nasal cannula Cardiovascular: No edema, Regular rate/rhythm Gastrointestinal: Normal bowel sounds, Soft and benign, Diffuse tenderness upon palpation Musculoskeletal: No clubbing, No swelling Integumentary: No rashes, No breakdown Neurological: Normal speech, Normal tone, Normal affect Studies Laboratory Data - Reviewed Microbiology Data - Urine culture 03/19: Mixed isabel - Blood cultures 03/19: No growth to date Imagings Data: - CT Abdomen/Pelvis: "No acute abnormality displayed" - XR Chest 03/23: Mild CHF/ volume overload. Medications List Reviewed: Yes Assessment and Plan Problem List CHF Hypertension COPD Diabetes Mellitus Type 2 Recent DVT on Lovenox Uncomplicated UTI Nasal Cancer on Chemotherapy Gastroparesis * Allergy: Doxycycline, Metoclopramide, kiwi * Urinary Tract Infection - Recent hospitalization for sepsis. High risk for MDR infection. - CT Abdomen/Pelvis: "No acute abnormality displayed" - UA 03/19: LE 75, WBC 10-20, Bacteria 20-40 - Urine culture 03/19: Mixed Isabel. [place] Count <10,000 CFU/mL - Previously on Meropenem (03/20-03/24) - Denies any flank pain, suprapubic pain, dysuria, urinary frequency or urgency. Abdominal pain/gastroparesis: GI on case Blood cultures 03/19 and 03/23: No growth to date No leukocytosis (WBC 7.9) Afebrile Recommendations - UTI: Meropenem discontinued 03/24. - Monitor for signs of infection with WBC and fever trends as needed. - Continue plan of care per hospitalist/GI. ID will follow patient as needed. Case discussed with Clarita Isbell
[2023-03-24] MEDS: HYDROCODONE/APAP 7.5/325 MG TAB PO PRN ×2 (12:38→17:55)
[2023-03-24] MEDS ORDERED: D10W 250 ML BAG IV PRN (15:00)
[2023-03-24] MEDS: ZOLPIDEM TARTRATE 10 MG TABLET PO SCH (20:52)
[2023-03-24] MEDS: predniSONE 20 MG TAB PO SCH (20:53)
[2023-03-24] MEDS ORDERED: INSULIN -REGULAR HUMAN 50 UNIT/0.5 ML ML IV ONE (21:18)
[2023-03-25] MEDS: IPRATROPIUM BROM 0.5MG/2.5ML NEB SCH ×4 (02:15→19:55)
[2023-03-25] MEDS: ALPRAZOLAM 1 MG TABLET PO PRN ×3 (02:40→20:14)
[2023-03-25 06:22] LABS: Absolute Lymphocytes (CBC) 1.2 K/uL (0.7-4.9); Hematocrit 38.2 % (36.0-45.0); Lymphocytes % 13.8 % (15.3-44.8); MCV 95.9 fL (80-100); RBC Red Blood Cell Count 3.98 M/uL (3.86-4.86)
[2023-03-25 06:39] LABS: Albumin 3.3 g/dL (3.4-5.0); Bilirubin Total 0.2 mg/dL (0.2-1.0); C-Reactive Protein 5.36 mg/L (<3.00); Potassium 4.5 mEq/L (3.5-5.1); Protein, Total 7.2 g/dL (6.4-8.2)
--- NOTE | 2023-03-25 07:29 | P.PN ---
Date of Service: 03/25/23 Subjective: Feeling better this morning Appetite improving breathing continuing to improve hyperglycemia improved yesterday, restarted partially on her home sliding scale, takes >200 units total daily of regular insulin ROS: 10 point ROS as noted above, otherwise negative Physical Exam: GEN: Alert, oriented, NAD HEENT: Normal conjunctiva, sclera anicteric CV: Regular rate and rhythm, no edema Pulm: mild labored respirations on 2L NC, mild b/l expiratory wheezes ABD: Soft, mild epigastric tenderness, R flank tenderness Integumentary: abdominal bruising secondary to lovenox injections Neuro: Normal speech, normal affect vitals reviewed Problem List: UTI/pyelonephritis, suspected History of Crohn's disease Gastroparesis, severe GERD acute on chronic COPD exacerbation chronic CHF IDDM2 Hypertension Hyperlipidemia Cancer of nasal cavities Recent hospitalization for sepsis treated with antibiotics, and upper extremity DVT (due to PICC) Increased risk of MDR organism causing UTI Venous doppler 03/19 - no DVT CT abdomen and pelvis 03/20 - unremarkable CXR 03/23 - mild CHF / volume overlord ID consulted no growth, no fever, no leukocytosis, however was on antibiotics as outpatient recommended stop antibiotics and monitor IV merrem DC 03/24 Blood culture: NGTD Urine culture: mixed growth suspect symptoms secondary to chemo / chronic severe gastroparesis pain medication as needed Continue Protonix GI consulted reports patient has severe gastroparesis and esophageal motility - suspect this is likely cause or main issue causing patient's pain was previously referred to [facility] for specialist. patient stated they were planning on gastric bypass due to severity of gastroparesis however delayed secondary to recent cancer diagnosis/treatment/hospitalization Dr. Kaur recommended continue home meds, no inpatient procedures, f/u with specialist wheezing, increased shortness of breath on 03/23 off trelegy for a few days - left at home; son to bring in nebs, decreased steroids 03/25 restart insulin 70/30 increased sliding scale to aggressive continue 50% home regimen with 70/30 hyponatremia, pseudo; corrected once account for hyperglycemia VTE: Lovenox Code: Full Dispo: Home ~1 day
[2023-03-25] MEDS: PANTOPRAZOLE 40 MG INJ IVP SCH ×2 (09:04→20:40)
[2023-03-25] MEDS: INSULIN 70/30 100 UNITS/ML SQ SCH ×2 (09:05→16:56)
[2023-03-25] MEDS: Enoxaparin 120 MG/0.8 ML SYR SQ SCH ×2 (09:05→20:40)
[2023-03-25] MEDS: INSULIN -REGULAR HUMAN 50 UNIT/0.5 ML ML SQ SCH ×4 (09:06→20:36)
[2023-03-25] MEDS: DICYCLOMINE HCL 10 MG CAP PO SCH ×4 (09:07→20:47)
[2023-03-25] MEDS: cloNIDine HCL 0.1 MG TAB PO SCH ×3 (09:07→20:47)
[2023-03-25] MEDS: GABAPENTIN 300 MG CAP PO SCH ×3 (09:07→20:45)
[2023-03-25] MEDS: COLCHICINE 0.6 MG TAB PO SCH (09:07)
[2023-03-25] MEDS: HYDRALAZINE HCL 25 MG TABLET PO SCH ×3 (09:08→20:45)
[2023-03-25] MEDS: predniSONE 20 MG TAB PO SCH ×2 (09:08→21:54)
[2023-03-25] MEDS: METOPROLOL XL 50 MG TAB PO SCH ×2 (09:08→20:44)
--- NOTE | 2023-03-25 10:18 | P.PN ---
Date of Service: 03/25/23 Chief Complaint: UTI, Sepsis Subjective: No new changes. Patient in bed, awake and oriented x 3, on 2L NC. Still reports abdominal pain epigastic area radiating to right flank around to back after eating and nausea. Continue current plan of care. Physical Examination Temp Pulse Resp BP Pulse Ox 97.9 F 63 16 136/76 97 03/25/23 08:00 03/25/23 09:08 03/25/23 08:00 03/25/23 09:08 03/25/23 08:00 General: In no apparent distress, Oriented x3, Obese HEENT: Atraumatic, Normocephalic Neck: Supple, JVD not distended Respiratory: Crackles/rales, Expiratory wheezes, On 2L nasal cannula Cardiovascular: No edema, Regular rate/rhythm Gastrointestinal: Normal bowel sounds, Soft and benign, Diffuse tenderness upon palpation Musculoskeletal: No clubbing, No swelling Integumentary: No rashes, No breakdown Neurological: Normal speech, Normal tone, Normal affect Studies Laboratory Data - Reviewed Microbiology Data - Urine culture 03/19: Mixed isabel - Blood cultures 03/19: No growth to date Imagings Data: - CT Abdomen/Pelvis: "No acute abnormality displayed" - XR Chest 03/23: Mild CHF/ volume overload. Medications List Reviewed: Yes Assessment and Plan Problem List CHF Hypertension COPD Diabetes Mellitus Type 2 Recent DVT on Lovenox Uncomplicated UTI Nasal Cancer on Chemotherapy Gastroparesis * Allergy: Doxycycline, Metoclopramide, kiwi, orange juice * Urinary Tract Infection, Uncomplicated - Recent hospitalization for sepsis. High risk for MDR infection. - CT Abdomen/Pelvis: "No acute abnormality displayed" - UA 03/19: LE 75, WBC 10-20, Bacteria 20-40 - Urine culture 03/19: Mixed Isabel. [place] Count <10,000 CFU/mL - Previously on Meropenem (03/20-03/24) - Denies any flank pain, suprapubic pain, dysuria, urinary frequency or urgency. - Blood cultures 03/19 and 03/23: No growth to date Abdominal pain, gastroparesis: GI on case Nasal cancer on chemotherapy managed as outpatient Recommendations - UTI: Received Meropenem from 03/20 to 03/24. No leukocytosis. Afebrile. - Supportive care as needed. Turn patient Q2H. Continue plan of care per hospitalist/GI. Case discussed with Clarita Isbell
[2023-03-25] MEDS: PRUCALOPRIDE SUCCINATE 2 MG PO SCH (10:35)
[2023-03-25] MEDS: HOME MED 1 EA UNK (Fluticasone/Umeclidin/Vilanter [Trelegy Ellipta 100-62.5-25] Blst.W.Dev IH SCH (10:35)
[2023-03-25] MEDS: HYDROCODONE/APAP 7.5/325 MG TAB PO PRN ×2 (14:11→21:55)
[2023-03-25] MEDS: BENZONATATE 100 MG CAP PO PRN (14:20)
[2023-03-25 15:04] LABS: Specific Gravity 1.014 (1.005-1.030); Urine Bilirubin NEGATIVE (Negative); Urine Blood Negative (Negative); Urine Clarity Clear (Clear); Urine Color Light-Yellow (Yellow); Urine Glucose 4+ (Over) (Negative); Urine Protein NEGATIVE (Negative); Urine Urobilinogen Normal (Normal); Urine pH 5.5 (5.0-7.0)
[2023-03-25] MEDS: GUAIFENESIN/CODEINE 5ML UCUP PO PRN (16:00)
[2023-03-25] MEDS ORDERED: FLUTICASONE 50MCG NASAL SPRAY NAS PRN (16:24)
[2023-03-25] MEDS: MORPHINE 4 MG/ML SYR IV PRN ×2 (16:58→23:30)
[2023-03-25] MEDS ORDERED: D50W 25 GM/50 ML SYRINGE IV PRN (20:23)
[2023-03-25] MEDS ORDERED: INSULIN -REGULAR HUMAN 50 UNIT/0.5 ML ML IV ONE (20:23)
[2023-03-25] MEDS: ZOLPIDEM TARTRATE 10 MG TABLET PO SCH (20:49)
[2023-03-25] MEDS ORDERED: D10W 125 ML IV PRN (20:56)
[2023-03-26] MEDS: IPRATROPIUM BROM 0.5MG/2.5ML NEB SCH ×2 (01:35→08:38)
[2023-03-26 05:48] LABS: C-Reactive Protein 2.99 mg/L (<3.00)
--- NOTE | 2023-03-26 07:29 | P.PN ---
Date of Service: 03/26/23 Subjective: lungs sound better today cough, wheezing persists ~unchanged appetite improving, tolerating PO afebrile ROS: 10 point ROS as noted above, otherwise negative Physical Exam: GEN: Alert, oriented, NAD HEENT: Normal conjunctiva, sclera anicteric CV: Regular rate and rhythm, no edema Pulm: mild labored respirations on 2L NC, mild b/l expiratory wheezes ABD: Soft, mild epigastric tenderness, R flank tenderness Integumentary: abdominal bruising secondary to lovenox injections Neuro: Normal speech, normal affect vitals reviewed Problem List: UTI/pyelonephritis, suspected History of Crohn's disease Gastroparesis, severe GERD acute on chronic COPD exacerbation chronic CHF IDDM2 Hypertension Hyperlipidemia Cancer of nasal cavities Recent hospitalization for sepsis treated with antibiotics, and upper extremity DVT (due to PICC) Increased risk of MDR organism causing UTI Venous doppler 03/19 - no DVT CT abdomen and pelvis 03/20 - unremarkable CXR 03/23 - mild CHF / volume overlord ID consulted no growth, no fever, no leukocytosis, however was on antibiotics as outpatient recommended stop antibiotics and monitor IV merrem DC 03/24 Blood culture: NGTD Urine culture: mixed growth suspect symptoms secondary to chemo / chronic severe gastroparesis pain medication as needed Continue Protonix GI consulted reports patient has severe gastroparesis and esophageal motility - suspect this is likely cause or main issue causing patient's pain was previously referred to [facility] for specialist. patient stated they were planning on gastric bypass due to severity of gastroparesis however delayed secondary to recent cancer diagnosis/treatment/hospitalization Dr. Kaur recommended continue home meds, no inpatient procedures, f/u with specialist wheezing, increased shortness of breath on 03/23 off trelegy for a few days - left at home; son to bring in nebs, decreased steroids 03/25 restart insulin 70/30 increased sliding scale to aggressive continue 50% home regimen with 70/30 hyponatremia, pseudo; corrected once account for hyperglycemia VTE: Lovenox Code: Full Dispo: Home ~1 day
--- NOTE | 2023-03-26 08:05 | P.DS ---
Admission Date: 03/20/23 Discharge Date: 03/26/23 Primary Care Provider: Maria Fernanda Disposition: ROUTINE DISCHARGE Discharge Condition: GOOD Reason for Admission: UTI, Sepsis Consultations: Gastrointestinal - Dr. Kaur Infectious Disease - Dr. Middleton Brief History of Present Illness: 58 yo F, PMH: nasal cancer on chemotherapy & radiation once a week, CHF, COPD, insulin dependent type 2 diabetes, recent DVT on lovenox, and hypertension Patient presented to the emergency department with complaints of abdominal pain that radiates around to her back. She was seen here 4 days ago for similar symptoms, had a negative abdominal CT, was diagnosed with UTI and discharged with antibiotics. She returns today with worsening pain, decreased PO intake, and nausea/vomiting. She was tachycardic and tachypneic upon arrival. Labs are significant for sodium 134, glucose 266, creatinine 1.04, AST 50, ALT 88, lactate 2.7. Urine positive for UTI (worse than UA 4 days ago) with LE, WBC, and bacteria. 2 hour repeat lactate remained at 2.7 and tachycardia (110s) has persisted despite 250 IVF bolus (additional fluids deferred due to history of CHF and pulmonary edema on CXR 4 days ago). She was additionally give 500 mg PO ciprofloxacin. She still complains of moderate radiating abdominal pain. Patient will be admitted for further management. Hospital Course: Problem List: UTI/pyelonephritis, suspected History of Crohn's disease Gastroparesis, severe GERD acute on chronic COPD exacerbation chronic CHF IDDM2 Hypertension Hyperlipidemia Cancer of nasal cavities Patient presented with abdominal pain. Initially thought to be secondary to UTI, however no bacteria was isolated on cultures. She received empiric antibiotics for UTI. Infectious disease was consulted, and her antibiotics were eventually stopped. She remained afebrile and her leukocytosis continue to improve for 48 hours. GI was consulted and reported severe gastroparesis and recommended to continue home medications with no surgical procedures and recommended to follow up with specialist in [place]. Patients symptoms felt to be secondary to chemo side effects and her severe gastroparesis. She was also noted to have an acute COPD exacerbation which improved with nebs, steroids, and restarted her trelegy. New prescriptions: Prednisone gerardo almazan Follow up: PCP 3-5 days GI specialist in [place] as planned Physical Exam: GEN: Alert, oriented, NAD HEENT: Normal conjunctiva, sclera anicteric CV: Regular rate and rhythm, no edema Pulm: mild labored respirations on 2L NC, clear ABD: Soft, mild epigastric tenderness Integumentary: abdominal bruising secondary to lovenox injections Neuro: Normal speech, normal affect Vital Signs/Physical Exam: Temp Pulse Resp BP Pulse Ox 97.0 F 64 19 134/78 97 03/26/23 04:00 03/26/23 04:00 03/26/23 04:00 03/26/23 04:00 03/26/23 04:00 Laboratory Data at Discharge: WBC 9.00 thou/uL (4.3-10.9) 03/25/23 05: Hgb 12.8 g/dL (12.0-15.0) 03/25/23 05: Hct 38.2 % (36.0-45.0) 03/25/23 05: Plt Count 205 thou/uL (152-406) 03/25/23 05: PT 11.7 SECONDS (9.5-12.5) 03/23/23 12:26 INR 1.06 03/23/23 12:26 APTT 33.1 SECONDS (24.3-36.9) 03/23/23 12:26 Sodium 135 mEq/L (136-145) L 03/26/23 04:42 Potassium 4.0 mEq/L (3.5-5.1) 03/26/23 04:42 BUN 17 mg/dL (7-18) 03/26/23 04:42 Creatinine 0.67 mg/dL (0.55-1.02) 03/26/23 04:42 Glucose 211 mg/dL (74-106) H 03/26/23 04:42 Phosphorus 3.2 mg/dL (2.5-4.9) 03/24/23 05:20 Magnesium 2.0 mg/dL (1.6-2.4) 03/25/23 05:23 Total Bilirubin 0.2 mg/dL (0.2-1.0) 03/25/23 05:23 AST 15 U/L (15-37) 03/25/23 05:23 ALT 52 U/L (13-56) 03/25/23 05:23 Alkaline Phosphatase 84 U/L (45-117) 03/25/23 05:23 Lipase 20 U/L (13-75) 03/23/23 12:26 Home Medications: ALPRAZolam [Xanax*] 2 mg PO TIDP PRN 10/04/19 Albuterol Sulfate [Proair Hfa] 1 puff IH Q4HP PRN 10/04/19 Atorvastatin Calcium [Lipitor] 40 mg PO DAILY 10/04/19 Colchicine [Colcrys *] 0.6 mg PO DAILY 10/04/19 Fluticasone/Umeclidin/Vilanter [Trelegy Ellipta 100-62.5-25] 1 puff IH DAILY 10/04/19 Gabapentin 600 mg PO TID 10/04/19 Hum Insulin NPH/Reg Insulin Hm [Humulin 70-30 Vial] 80 unit SQ BREAKFAST 10/04/19 Hydrocodone 5/APAP 325 [[place] 5/325*] 1 tab PO PRN PRN 10/04/19 Pantoprazole [Protonix Tab*] 40 mg PO BID 10/04/19 Zolpidem Tartrate [Ambien*] 10 mg PO BEDTIME 10/04/19 Albuterol Neb [Proventil 0.083% Neb Soln] 2.5 mg NEB [id number] #120 amp 08/06/22 Ipratropium Neb [Atrovent*] 0.5 mg NEB [id number] #120 amp 08/06/22 Dicyclomine [Bentyl*] 10 mg PO QID 09/03/22 Prucalopride Succinate [Motegrity] 2 mg PO DAILY 09/03/22 Albuterol Neb [Proventil 0.083% Neb Soln] 2.5 mg NEB [id number] #60 amp 09/05/22 Dapagliflozin/Metformin HCl [Xigduo Xr 5 mg-1,000 mg Tablet] 1 each PO DAILY 30 Days #30 tab 09/05/22 Hydralazine [Apresoline*] 25 mg PO TID #90 tab 09/05/22 Metoprolol Succinate [Toprol Xl*] 50 mg PO BID #60 tab 09/05/22 cloNIDine HCL [Catapres*] 0.1 mg PO TID #90 tab 09/05/22 Oxycodone HCl/Acetaminophen [Oxycodone-Acetaminophn 2.5-325] 1 PO 03/20/23 Benzonatate [Tessalon Perle*] 100 mg PO TID PRN 5 Days #15 cap 03/26/23 Guaifen W/Codeine Syrup [ROBITUSSIN A-C Syrup*] 5 ml PO Q8H PRN #60 ml 03/26/23 predniSONE [Deltasone*] 10 mg PO BID 4 Days #8 tab 03/26/23 New Medications: predniSONE [Deltasone*] 10 mg PO BID 4 Days #8 tab Guaifen W/Codeine Syrup [ROBITUSSIN A-C Syrup*] 5 ml PO Q8H PRN #60 ml PRN Reason: Cough Benzonatate [Tessalon Perle*] 100 mg PO TID PRN 5 Days #15 cap PRN Reason: Cough Physician Discharge Instructions: Patient presented with abdominal pain. Initially thought to be secondary to UTI, however no bacteria was isolated on cultures. She received empiric antibiotics for UTI. Infectious disease was consulted, and her antibiotics were eventually stopped. She remained afebrile and her leukocytosis continue to improve for 48 hours. GI was consulted and reported severe gastroparesis and recommended to continue home medications with no surgical procedures and recommended to follow up with specialist in [place]. Patients symptoms felt to be secondary to chemo side effects and her severe gastroparesis. She was also noted to have an acute COPD exacerbation which improved with nebs, steroids, and restarted her trelegy. New prescriptions: Prednisone cheratussin Tessalon pearls Follow up: PCP 3-5 days GI specialist in [place] as planned Followup: Maria Fernanda MCMAHAN,Trent Johnston DO [Primary Care Provider] - Time spent managing pt's care (in minutes): 45
[2023-03-26 08:16] VITALS: BP 138/98; TEMP 97.7
[2023-03-26] MEDS: ALPRAZOLAM 1 MG TABLET PO PRN (08:29)
[2023-03-26] MEDS: INSULIN 70/30 100 UNITS/ML SQ SCH (08:30)
[2023-03-26] MEDS: cloNIDine HCL 0.1 MG TAB PO SCH (08:31)
[2023-03-26] MEDS: INSULIN -REGULAR HUMAN 50 UNIT/0.5 ML ML SQ SCH (08:31)
[2023-03-26] MEDS: METOPROLOL XL 50 MG TAB PO SCH (08:32)
[2023-03-26] MEDS: HYDRALAZINE HCL 25 MG TABLET PO SCH (08:32)
[2023-03-26] MEDS: COLCHICINE 0.6 MG TAB PO SCH (08:32)
[2023-03-26] MEDS: GABAPENTIN 300 MG CAP PO SCH (08:32)
[2023-03-26] MEDS: DICYCLOMINE HCL 10 MG CAP PO SCH (08:32)
[2023-03-26] MEDS: predniSONE 20 MG TAB PO SCH (08:32)
[2023-03-26] MEDS: PANTOPRAZOLE 40 MG INJ IVP SCH (08:33)
[2023-03-26] MEDS: PRUCALOPRIDE SUCCINATE 2 MG PO SCH (08:33)
[2023-03-26] MEDS: HOME MED 1 EA UNK (Fluticasone/Umeclidin/Vilanter [Trelegy Ellipta 100-62.5-25] Blst.W.Dev IH SCH (08:33)
[2023-03-26] MEDS: Enoxaparin 120 MG/0.8 ML SYR SQ SCH (08:33)
[2023-03-26 09:28] VITALS: O2SAT 94
== END 2023-03-26 09:45 | disposition home health service (06) | DRG 74 ==
LOC: ER 19:19 → ERHOLD 03-20 01:16 → 4TH 03-20 02:09 → OBSVTOIN 03-20 15:01
PROVIDERS: ADMIT Internal Medicine; ATTEND Hospitalist
DX: E11.43 Type 2 diabetes mellitus with diabetic autonomic (poly)neuropathy (principal); Z68.43 Body mass index [BMI] 50.0-59.9, adult; I50.32 Chronic diastolic (congestive) heart failure; K50.90 Crohn's disease, unspecified, without complications; J44.1 Chronic obstructive pulmonary disease with (acute) exacerbation; E87.1 Hypo-osmolality and hyponatremia; K31.84 Gastroparesis; I11.0 Hypertensive heart disease with heart failure; E66.01 Morbid (severe) obesity due to excess calories; E11.65 Type 2 diabetes mellitus with hyperglycemia; E78.2 Mixed hyperlipidemia; K21.9 Gastro-esophageal reflux disease without esophagitis; C76.0 Malignant neoplasm of head, face and neck; J44.9 Chronic obstructive pulmonary disease, unspecified; T45.1X5A Adverse effect of antineoplastic and immunosuppressive drugs, initial encounter; R10.9 Unspecified abdominal pain; Z88.1 Allergy status to other antibiotic agents; Z88.8 Allergy status to other drugs, medicaments and biological substances; Z79.4 Long term (current) use of insulin; Z79.01 Long term (current) use of anticoagulants; Z86.73 Personal history of transient ischemic attack (TIA), and cerebral infarction without residual deficits; Z79.52 Long term (current) use of systemic steroids; Z79.84 Long term (current) use of oral hypoglycemic drugs; Z90.49 Acquired absence of other specified parts of digestive tract; Z98.51 Tubal ligation status; Z87.891 Personal history of nicotine dependence; Z91.018 Allergy to other foods; Z79.899 Other long term (current) drug therapy; Z86.718 Personal history of other venous thrombosis and embolism
CPT/HCPCS: 36415; 71045; 74177; 80048; 80053; 81001; 81003; 82248; 82947; 83036; 83605; 83690; 83735; 83880; 84100; 84484; 85025; 85610; 85730; 86140; 87040; 87086; 87088; 93005; 93970; 94640; 94760; 96365; 96375; 99285; C9113; G0378; J0696; J1650; J1815; J2185; J2405; J2550; J2920; J3010; J3475; J7030; J7050; J7512; J7644; Q9967

== ENCOUNTER 2023-04-13 17:03 | Emergency (ER) | payer OTHER ==
--- OUTSIDE RECORDS SUMMARY | 2023-04-13 17:14 | XMS REPORT | Clinical Summary ---
:1965 Author Organization [facility] MD [facility] Address [address] [place] [address] Care Team Providers Name Role Phone Bina Obando MD Unavailable Kenya Agarwal MD Primary Care Provider Trent Irving MD Unavailable Randall Sheriff MD Unavailable Vignesh Waddell MD Unavailable Naa Miller MD [facility] Un[facility] Rafael Ros[facility] MD Unavailable [...] to her allergies f ollowing a procedure [place] Juice Nausea And Low 04/18/2021 Vomiting, GI Intolerance Medications Medication Sig Dispensed Refills Start Date End Date Status albuterol (VENTOLIN every 6 (six) 0 10/19/2022 Active HFA,PROAIR HFA) 90 hours as needed. mcg/puff inhaler ALPRAZolam (XANAX) 2 mg every 8 (eight) 0 10/20/2022 Active tablet hours as needed for anxiety. amLODIPine (NORVASC) 5 TAKE 1 TABLET BY 0 10/13/2022 Active mg tablet MOUTH EVERY DAY atorvastatin (LIPITOR) TAKE 1 TABLET BY 0 09/12/2022 Active 20 mg tablet MOUTH EVERY DAY Trelegy Ellipta INHALE 1 PUFF BY 0 09/18/2022 Active 100-62.5-25 mcg dsdv MOUTH EVERY DAY mesalamine (APRISO) TAKE 4 CAPSULES 0 08/24/2022 Active 0.375 gram 24 hr BY MOUTH DAILY capsule pantoprazole (PROTONIX) TAKE 1 TABLET BY 0 2 Active 40 mg EC tablet MOUTH DAILY Motegrity 2 mg tab TAKE 1 TABLET BY 0 07/26/2022 Active MOUTH DAILY zolpidem (AMBIEN) 10 mg TAKE 1 TABLET BY 0 2 Active tablet MOUTH AT BEDTIME NEEDED FOR INSOMNIA Victoza 2-Ze 0.6 Inject 0.3 mL 9 mL 3 12/15/2022 Active mg/0.1 mL (18 mg/3 mL) (1.8 mg) under pnij the skin daily. injectionIndications: Type 2 diabetes mellitus without complication prochlorperazine Take 1 tablet 60 tablet 3 12/17/2022 Active (Compazine) 10 mg (10 mg) by mouth tabletIndications: every 6 (six) Adenoid cystic hours as needed carcinoma of for nausea or nasopharynx, NOS vomiting (if not controlled by Ondansetron). lisinopril Take 1 tablet 0 Activ e (PRINIVIL,ZESTRIL) 40 (40 mg) by mouth mg tablet every morning. naloxone (Narcan) 4 1 dose into one 2 each 0 01/20/2023 Active mg/actuation nasal nostril as sprayIndications: Long needed for term current use of opioid overdose. opiate analgesic another dose into the other nostril after 2 minutes if the patient does not respond pen needle, diabetic Use to inject 100 each 1 01/31/2023 Active (Easy Comfort Pen insulin 4 times [place]) 31 gauge x a day 03/16" ndleIndications: Type 2 diabetes mellitus with hyperglycemia ondansetron (ZOFRAN) 8 Take 1 tablet (8 30 tablet 3 02/04/2023 02/04/2024 Active mg tabletIndications: mg) by mouth Adenoid cystic every 8 (eight) carcinoma of hours as needed nasopharynx, NOS for nausea or vomiting. lidocaine (XYLOCAINE) Swish and 100 mL 3 02/04/2023 Active 20 mg/mL (2%) viscous swallow 5 mL solutionIndications: every 6 (six) Adenocarcinoma of hours as needed nasopharynx (painful swallowing). fluticasone propionate Inhale 2 sprays 11.1 mL 3 02/04/2023 Active (FLONASE) 50 mcg/spray (100 mcg) into nasal sprayIndications: each nostril Adenoid cystic twice daily. carcinoma of nasopharynx, NOS allopurinol (ZYLOPRIM) Take 1 tablet 0 Active 300 mg (300 mg) by tabletIndications: mouth twice prevention of acute daily. gout attack colchicine (COLCRYS) Take 1 tablet 0 Active 0.6 mg (0.6 mg) by tabletIndications: mouth daily. prevention of acute gout attack dicyclomine (BENTYL) 10 Take 1 capsule 0 Active mg capsule (10 mg) by mouth 3 (three) times a day. insulin regular hum Inject 70-180 30 mL 11 02/16/2023 Active U-500 conc (HumuLIN R Units under the U-500, Conc, Kwikpen) skin daily with 500 unit/mL (3 mL) breakfast AND insulin penIndications: 40-105 Units Type 2 diabetes daily before mellitus without lunch AND 35-95 complication Units daily before dinner. pseudoephedrine Take 1 tablet 60 tablet 0 02/26/2023 Active (Sudafed) 30 mg (30 mg) by mouth tabletIndications: every 8 (eight) Chronic pain hours as needed for congestion. Additional Information Patient not taking. Reported on 04/13/2023 oxyCODONE-acetaminophen Take 1 tablet 60 tablet 0 03/04/2023 Active (Percocet) 5 mg-325 mg per by mouth 2 tabletIndications: Cancer (two) times a associated pain day as needed for severe pain. cefPODoxime (VANTIN) 200 mg Take 1 tablet 0 03/14/20 23 Active tablet (200 mg) by mouth twice daily. apixaban (Eliquis) 5 mg Take 1 tablet 84 tablet 0 03/31/2023 Active tabletIndications: Acute (5 mg) by mouth thrombosis of right every 12 axillary vein, Bilateral (twelve) hours. acute thrombosis of basilic veins, Thrombosis of left cephalic vein, senior living use of anticoagulant gabapentin (NEURONTIN) 800 TAKE 1 90 tablet 0 04/09/2023 Active mg tabletIndications: TABLET(800 MG) Chronic pain BY MOUTH EVERY 8 HOURS promethazine-dextromethorph TAKE 5 ML BY 0 3 Active an (PROMETHAZINE-DM) MOUTH EVERY 6 6.25-15 mg/5 mL syrup HOURS NEEDED FOR COUGH metFORMIN (GLUCOPHAGE) 1000 TAKE 1 TABLET 0 03/10/20 23 Active mg tablet BY MOUTH IN THE MORNING AND IN THE EVENING WITH MEALS benzonatate (TESSALON) 100 THREE TIMES A 0 3 Active mg capsule DAY spironolactone (ALDACTONE) TAKE 1 TABLET 0 3 Active 25 mg tablet BY MOUTH EVERY DAY oxyCODONE-acetaminophen 0 03/20/2023 Active (PERCOCET) 2.5-325 mg per tablet predniSONE (DELTASONE) 10 TWICE DAILY 0 03/26/2023 Active mg tablet metoprolol succinate TAKE 1 TABLET 0 02/24/2023 Active (TOPROL XL) 100 mg 24 hr BY MOUTH TWICE tablet DAILY allopurinol (ZYLOPRIM) 300 TAKE 1 TABLET 0 2 03/2 Discontinued mg tablet BY MOUTH TWICE (Stop Taking at DAILY 23 Discharge) cloNIDine HCl (CATAPRES) TAKE 1 TABLET 0 11/09/2022 03/2 Discontinued 0.2 mg tablet BY MOUTH THREE ( Stop Taking at TIMES DAILY 23 Discharg e) cetirizine (ZyrTEC) 10 mg TAKE 1 TABLET 0 10/29/202212/30 Discontinued tablet BY MOUTH ONCE 02/18 (Error ) DAILY NEEDED 23 FOR ALLERGIES colchicine (COLCRYS) 0.6 mg TAKE 1 TABLET 0 09/21/20 22 12/31 Discontinued tablet BY MOUTH DAILY (Stop Taking at 23 Discharge) diclofenac sodium APPLY TOPICALLY 0 10/21/2022 04/0 Discontinued (Voltaren) 1 % gel TO THE AFFECTED 01/18 (Stop Taking at AREA THREE 23 Discharge ) TIMES DAILY dicyclomine (BENTYL) 10 mg TAKE 1 CAPSULE 0 10/12/2012/31 Discontinued capsule BY MOUTH EVERY (Stop Taking at 8 HOURS 23 Discharge) gabapentin (NEURONTIN) 600 TAKE 1 TABLET 0 12/02 Discontinued mg tablet BY MOUTH IN THE 02/18 (Sto p Taking at MORNING AND AT 23 Disch arge) NOON AND IN THE EVENING hydrALAZINE (APRESOLINE) TAKE 1 TABLET 0 10/01/202212/02 Discontinued 100 mg tablet BY MOUTH THREE 02/18 ( Stop Taking at TIMES DAILY 23 Discharg e) hydroCHLOROthiazide 1 capsule (12.5 0 11/09/202212/31 Discontinued (MICROZIDE) 12.5 mg capsule mg) every morning. 23 HYDROcodone-acetaminophen TAKE 1 TABLET 0 10/21/202212/02 Discontinued (NORCO) 7.5 mg-325 mg per BY MOUTH EVERY 02/18 (Stop Taking at tablet 6 HOURS 23 Discharge ) NEEDED FOR PAIN OR CHRONIC PAIN hydrocortisone 1 % crpe APPLY TWICE 0 09/10/202212/30 Discontinued DAILY IN AND 02/18 (Error) AROUND THE 23 RECTUM AFTER SITZ BATH hydrocortisone (ANUSOL-HC) UNWRAP AND 0 11/06/2022 0 12/30 Discontinued 25 mg suppository INSERT ONE (1) 02/18 (Error) SUPPOSITORY IN 23 THE RECTUM TWICE A DAY. HumuLIN 70/30 U-100 Insulin 0 11/16/2022 0 12/02 Discontinued 100 unit/mL (70-30) 02/18 (Stop Taking at injection 23 Discharge) Victoza 2-Ze 0.6 mg/0.1 mL ADMINISTER 1.8 0 022 12/02 Discontinued (18 mg/3 mL) pnij injection MG UNDER THE 02/18 (Reorder) SKIN EVERY DAY 23 lisinopril TAKE 1/2 TABLET 0 10/01/202212/02 Di scontinued (PRINIVIL,ZESTRIL) 40 mg BY MOUTH TWICE 02/18 (Stop Taking at tablet DAILY 23 Discharge) lubiprostone (AMITIZA) 24 TAKE 1 CAPSULE 0 2 12/30 Discontinued MCG capsule BY MOUTH TWICE 02/18 (Er ror) DAILY 23 metFORMIN (GLUCOPHAGE) 1000 TAKE 1 TABLET 0 09/21/20 22 12/02 Discontinued mg tablet BY MOUTH IN THE 02/18 (Sto p Taking at MORNING AND IN Disch arge) THE EVENING WITH MEALS metoprolol tartrate TAKE 1 TABLET 0 11/03/202212/02 Discontinued (LOPRESSOR) 100 mg tablet BY MOUTH TWICE 02/18 (Reorder) DAILY 23 nitroglycerin (NITROSTAT) PLACE 1 TABLET 0 2 12/30 Discontinued 0.4 mg SL tablet UNDER THE 02/18 (Er ror) TONGUE EVERY 5 23 MINUTES FOR CHEST PAIN. BD Devorah 2nd Gen Pen Needle USE 0 10/05/2022 Discontinued 32 gauge x 532" ndle DIRECTED. 02/18 (Reorder) 23 rizatriptan (MAXALT-CALENDERER) 5 0 08/25/2022 Discontinued mg disintegrating tablet 02/18 (Error) 23 spironolactone (ALDACTONE) TAKE 1 TABLET 0 2 12/02 Discontinued 25 mg tablet BY MOUTH EVERY 02/18 (S top Taking at DAY 23 Discharge) sucralfate (CARAFATE) 1 g TAKE 1 TABLET 0 08/20/202212/02 Discontinued tablet BY MOUTH TWICE 02/18 (Stop Taking at DAILY 23 Discharge) insulin syringe-needle USE TWICE DAILY 0 10/01/202212/02 Discontinued U-100 1 mL 31 gauge x 5/16 WITH MEALS. (Stop Taking at syrg 23 Discharge) triamcinolone (KENALOG) APPLY TOPICALLY 0 08/28/202212/30 Discontinued 0.1% cream TO THE AFFECTED 02/18 (Er ror) AREA TWICE 23 DAILY BD Insulin Syringe U-500 USE 1 SYRINGE 0 03/03/202212/02 Discontinued 1/2 mL 31 gauge x 15/64" DIRECTED 01/31 0 (Stop Taking at syrg TWICE DAILY 23 Discharg e) WITH MEALS ondansetron (ZOFRAN-ODT) 8 Dissolve 1 30 tablet 0 11/26/2022 0 12/02 Discontinued mg disintegrating tablet (8 mg) 05/20 (Reorder) tabletIndications: on the tongue 23 Adenocarcinoma of every 8 (eight) nasopharynx hours as needed for nausea. HYDROmorphone (DILAUDID) 2 Take 1 tablet 60 tablet 0 3 12/02 Discontinued mg tabletIndications: (2 mg) by mouth (Stop Taking at Adenocarcinoma of every 4 (four) 23 Discharge) nasopharynx hours as needed (cancer pain). dexamethasone (DECADRON) 2 Take 1 tablet 60 tablet 0 3 12/30 Discontinued mg tabletIndications: (2 mg) by mouth (Error) Adenocarcinoma of twice daily. 23 nasopharynx insulin regular hum U-500 Inject 110 to 24 mL 3 12/15/202212/02 Discontinued conc (HumuLIN R U-500, 160 Units under (Reorder) Conc, Kwikpen) 500 unit/mL the skin 3 (3 mL) insulin (three) times a penIndications: Type 2 day before diabetes mellitus without meals. complication BD Devorah 2nd Gen Pen Needle Inject 1 Device 100 each 3 023 Discontinued 32 gauge x 5/32" under the skin 01/18 (Stop Taking at ndleIndications: Type 2 3 (three) times 23 Discharge) diabetes mellitus without a day before complication meals. gabapentin (NEURONTIN) 600 Take 1 tablet 90 tablet 0 3 Discontinued mg tabletIndications: (600 mg) by 01/18 (Stop Taking at Headache, not otherwise mouth every 8 23 Discharge) specified (eight) hours. celecoxib (CeleBREX) 200 mg Take 1 capsule 30 capsule 0 2022 Discontinued capsuleIndications: (200 mg) by 11/20 (Therapy Headache, not otherwise mouth daily. 23 completed) specified oxyCODONE-acetaminophen Take 1 tablet 90 tablet 0 12/15/2022 0 Discontinued (Percocet) 5 mg-325 mg per by mouth every 01/18 (Reorder) tabletIndications: Neoplasm 4 (four) hours 23 related pain (acute) as needed for (chronic) moderate pain. metoprolol tartrate Take 1 tablet 60 tablet 0 12/15/202212/31 Discontinued (LOPRESSOR) 50 mg (50 mg) by ( Reorder) tabletIndications: mouth twice 23 Hypertension daily for 30 days. fluoride, sodium, Apply to teeth 56 g 0 12/16/202212/30 Discontinued (DENTAGEL) 1.1% dental daily for 30 02/18 (Error) gelIndications: Adenoid days. 23 cystic carcinoma of nasopharynx, NOS insulin regular hum U-500 Inject 110-160 24 mL 3 3 12/31 Discontinued conc (HumuLIN R U-500, Units under the (Reorder) Conc, Kwikpen) 500 unit/mL skin 3 (three) 23 (3 mL) insulin times a day penIndications: Type 2 before meals. diabetes mellitus without complication pantoprazole (Protonix) 40 Take 1 tablet 30 tablet 0 12/02 Discontinued mg EC tabletIndications: (40 mg) by 02/18 (Stop Taking at Gastroesophageal reflux mouth every 23 Discharge) disease morning before breakfast for 30 days. ondansetron (ZOFRAN) 8 mg Take 1 tablet 30 tablet 3 12/17/2022 Discontinued tabletIndications: Adenoid (8 mg) by mouth 04/20 (Reorder) cystic carcinoma of every 8 (eight) 23 nasopharynx, NOS hours as needed for nausea or vomiting. ondansetron (ZOFRAN-ODT) 8 Dissolve 1 60 tablet 1 12/18/2022 0 12/02 Discontinued mg disintegrating tablet (8 mg) 05/20 tabletIndications: on the tongue 23 Adenocarcinoma of every 8 (eight) nasopharynx hours as needed for nausea. sodium chloride (NS) 0.9% Inject 10 mL (1 30 each 6 12/23/1901/30 Discontinued flush syringe 10 syringe) into 06/20 (Stop Taking at mLIndications: Adenoid each lumen of 23 Discharge) cystic carcinoma of central venous nasopharynx, NOS catheter daily as directed. cyclobenzaprine (FLEXERIL) Take 1 tablet 60 tablet 0 3 12/31 Discontinued 10 mg tabletIndications: (10 mg) by 0/20 (Reorder) Cancer associated pain mouth 3 (three) 2 3 times a day as needed for muscle spasms (neck pain). pseudoephedrine (Sudafed) Take 1 tablet 60 tablet 0 12/30/202212/30 Discontinued 30 mg tabletIndications: (30 mg) by 02/18 (Error) Cancer associated pain mouth 2 (two) 23 times a day as needed for congestion. oxyCODONE-acetaminophen Take 1 tablet 45 tablet 0 01/01/2023 0 12/30 Discontinued (Percocet) 5 mg-325 mg per by mouth every 02/18 (Error) tabletIndications: Neoplasm 4 (four) hours 23 related pain (acute) as needed for (chronic) moderate pain. lidocaine (XYLOCAINE) 20 Swish and 100 mL 3 01/04/202312/31 Discontinued mg/mL (2%) viscous swallow 5 mL 0/20 (Stop Taking at solutionIndications: every 6 (six) 23 Discharge) Adenocarcinoma of hours as needed nasopharynx (painful swallowing). hydrALAZINE (APRESOLINE) Take 1 tablet 0 0 /2 Discontinued 100 mg tablet (100 mg) by 0/20 (Sto p Taking at mouth 3 (three) 23 Disc harge) times a day. metFORMIN (GLUCOPHAGE) 1000 Take 1 tablet 0 /2 Discontinued mg tablet (1,000 mg) by 0/20 (Stop Taking at mouth 2 (two) 23 Discha rge) times a day with meals. spironolactone (ALDACTONE) Take 1 tablet 0 /2 Discontinued 25 mg tablet (25 mg) by 0/20 (Stop Taking at mouth daily. 23 Dischar ge) oxyCODONE-acetaminophen Take 1 tablet 0 01/18/2023 0 /2 Discontinued (Percocet) 5 mg-325 mg per by mouth every 020 (Reorder) tabletIndications: Neoplasm 4 (four) hours 23 related pain (acute) as needed for (chronic) moderate pain. oxyCODONE-acetaminophen Take 1 tablet 60 tablet 0 01/18/2023 0 4/ Discontinued (Percocet) 5 mg-325 mg per by mouth every 20 (Stop Taking at tabletIndications: Neoplasm 6 (six) hours 23 Discharge) related pain (acute) as needed for (chronic) severe pain. cyclobenzaprine (FLEXERIL) Take 1 tablet 60 tablet 0 3 03/ Discontinued 10 mg tabletIndications: (10 mg) by 12/21 (Therapy Cancer associated pain mouth 3 (three) 2 3 completed) times a day as needed for muscle spasms (neck pain). xyloxylin oral suspension Swish and 480 mL 1 01/18/2023 03 Discontinued (AMB-CMPD)Indications: swallow 10 mL 0/2 0 (Reorder) Ulcerative oral mucositis every 6 (six) 23 due to antineoplastic hours as needed therapy for mouth pain. sucralfate (CARAFATE) 100 Take 10 mL 420 mL 0 01/18/2023 Discontinued mg/mL (1,000 mg) by (Reord er) suspensionIndications: mouth 4 (four) 23 Ulcerative oral mucositis times a day. due to antineoplastic therapy metoprolol tartrate Take 1 tablet 60 tablet 0 01/18/202312/31 Discontinued (LOPRESSOR) 50 mg (50 mg) by ( Reorder) tabletIndications: mouth twice 23 Hypertension daily for 30 days. insulin regular hum U-500 Inject 50 to 24 mL 3 01/18/2023 04/0 Discontinued conc (HumuLIN R U-500, 125 Units under (Reorder) Conc, Kwikpen) 500 unit/mL the skin 01 21 (3 mL) insulin (three) times a penIndications: Type 2 day, before diabetes mellitus without meals. Inject complication as instructed at discharge. pen needle, diabetic needle Use as 10 each 0 01/18/2023 0 4/0 Discontinued directed. 12/21 (Reorder) 23 sucralfate (CARAFATE) 100 Take 10 mL 420 mL 0 01/18/2023 Discontinued mg/mL (1,000 mg) by 0 (Reord er) suspensionIndications: mouth 4 (four) 23 Ulcerative oral mucositis times a day. due to antineoplastic therapy xyloxylin oral suspension Swish and 480 mL 1 01/18/202312/31 Discontinued (AMB-CMPD)Indications: swallow 10 mL 0/2 0 (Reorder) Ulcerative oral mucositis every 6 (six) 23 due to antineoplastic hours as needed therapy for mouth pain. metoprolol tartrate Take 1 tablet 60 tablet 0 01/18/202301/30 (LOPRESSOR) 50 mg (50 mg) by 07/21 tabletIndications: mouth twice 23 Hypertension daily for 30 days. sucralfate (CARAFATE) 100 Take 10 mL 420 mL 0 01/18/2023 Discontinued mg/mL (1,000 mg) by 06/20 (Stop Taking at suspensionIndications: mouth 4 (four) 23 Discharge) Ulcerative oral mucositis times a day. due to antineoplastic therapy xyloxylin oral suspension Swish and 480 mL 1 01/18/202312/31 Discontinued (AMB-CMPD)Indications: swallow 10 mL /2 0 (Reorder) Ulcerative oral mucositis by mouth every due to antineoplastic 6 (six) hours therapy as needed for mouth pain. UNABLE TO FIND Compound Drug 0 01/18/202301/30 Discontinued 06/20 (Stop Taki ng at 23 Discharge) xyloxylin oral suspension Swish and 480 mL 1 01/20/202301/30 Discontinued (AMB-CMPD)Indications: swallow 10 mL 2 (Stop Taking at Ulcerative oral mucositis (two) times a 23 Discharge) due to antineoplastic day as needed therapy for mouth pain. insulin regular (HumuLIN R Inject 5 units 10 mL 1 02/01/20 23 01/30 Discontinued Regular U-100 Insuln) 100 to 25 units (Stop Taking at units/mL with meals as 23 Discha rge) injectionIndications: Type needed for 2 diabetes mellitus with blood sugar hyperglycemia greater than 150 mg/dL insulin regular hum U-500 Inject 50 to 24 mL 3 01/31/202301/30 Discontinued conc (HumuLIN R U-500, 125 Units under (Reorder) Conc, Kwikpen) 500 unit/mL the skin 01 21 (3 mL) insulin (three) times a penIndications: Type 2 day, before diabetes mellitus without meals. Inject complication as instructed at discharge. pen needle, diabetic needle Use as 10 each 0 01/31/2023 0 01/30 Discontinued directed. 06/20 (Stop Taki ng at 23 Discharge) insulin syringe-needle USE DIRECTED 360 each 3 02/02/202301/30 Discontinued U-100 1 mL 31 gauge x 5/16 FOUR TIMES (Stop Taking at syrgIndications: Type 2 DAILY 23 Discharge) diabetes mellitus with hyperglycemia gabapentin (NEURONTIN) 800 Take 1 tablet 90 tablet 0 050 Discontinued mg tabletIndications: (800 mg) by 12/21 Chronic pain mouth every 8 23 (eight) hours. oxyCODONE-acetaminophen Take 1 tablet 30 tablet 0 02/01/2023 0 5/0 Discontinued (PERCOCET) 7.5-325 mg per by mouth every 02/18 (Dose tabletIndications: Chronic 6 (six) hours 23 adjustment) pain as needed for severe pain. hydrALAZINE (APRESOLINE) Take 1 tablet 0 0 01/30 Discontinued 100 mg tabletIndications: (100 mg) by (Stop Taking at hypertension mouth 3 (three) 23 D ischarge) times a day. hydroCHLOROthiazide Take 1 capsule 0 01/30 Discontinued (MICROZIDE) 12.5 mg capsule (12.5 mg) by 06/20 (Stop Taking at mouth every 23 Discharg e) morning. cloNIDine HCl (CATAPRES) Take 1 tablet 0 0 01/30 Discontinued 0.2 mg tablet (0.2 mg) by 06/20 (Sto p Taking at mouth 3 (three) 23 Disc harge) times a day as needed. oxyCODONE-acetaminophen Take 1 tablet 45 tablet 0 02/12/2023 0 01/30 Discontinued (Percocet) 7.5-325 mg per by mouth every 06/20 (Stop Taking at tabletIndications: Neoplasm 6 (six) hours 23 Discharge) related pain (acute) as needed for (chronic) severe pain for up to 45 days. enoxaparin (LOVENOX) 120 Inject 0.8 mL 60 each 0 02/12/202303/03 Discontinued mg/0.8 mL prefilled (120 mg) under 11/20 syringeIndications: Deep the skin every 23 venous thrombosis 12 (twelve) <Unspecified side> hours. levoFLOXacin (LEVAQUIN) 750 Take 1 tablet 3 tablet 0 02/17/20 23 04/2 mg tabletIndications: (750 mg) by 11/20 Adenoid cystic carcinoma of mouth daily for 23 nasopharynx, NOS, Deep 3 days. venous thrombosis <Unspecified side> gabapentin (NEURONTIN) 800 TAKE 1 90 tablet 0 03/02/2023 06 /0 Discontinued mg tabletIndications: TABLET(800 MG) 07/03 0 (Reorder) Chronic pain BY MOUTH EVERY 23 8 HOURS Active Problems Problem Noted Date senior living use of anticoagulant 03/31/2023 Acute thrombosis of right axillary vein 02/08/2023 Bilateral acute thrombosis of basilic veins 02/08/2023 Thrombosis of left cephalic vein 02/08/2023 Febrile neutropenia 02/06/2023 Shortness of breath 02/06/2023 Central line associated bloodstream infection 02/07/20 Disorder of fluid AND/OR electrolyte 02/06/2023 Other [...] to antineoplastic therapy 01/11/2023 Swallowing painful 01/11/2023 senior living current use of systemic steroid 12/10/2022 Current use of insulin 12/10/2022 Adverse effect of glucocorticoids and synthetic analog ues 12/10/2022 Headache 12/09/2022 Adenoid cystic carcinoma of nasopharynx, 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: Stage WINDY (cT4, cN0, cM0) - Unsigned Essential hypertension 02/15/2020 Gastroesophageal reflux disease 07/28/2018 Other hyperlipidemia 07/28/2018 Severe protein-calorie malnutrition Encounters Date Type Specialty Care Team Description 04/09/2023 Refill Pain Medicine Martha Chronic pain JCARLOS Tracey 04/08/2023 Refill Pain Medicine Flaco Gordon pain Miguel Fernandez MD 03/31/2023 Office Visit Hematology OoRosana MD senior living use of anticoagulant (Primary Dx); Adenoid cystic carcinoma of nasopharynx, NOS; Deep venous thr ombosis <Unspecified side>; Acute thrombosi s of right axillary vein; Bilateral acute thrombosis of basilic veins; Thrombosis of l eft cephalic vein 03/31/2023 Travel 03/26/2023 Telephone Pain Medicine Viry Gaitan, JCARLOS 03/23/2023 Telephone Radiation Oncology Lindy Montenegro PA 03/23/2023 Orders Only Radiation Oncology Lindy Montenegro PA 03/19/2023 Telemedicine Endocrinology Angela Lopes, Type 2 diabet es CONFIGURATION MANAGER mellitus withou t complication (P rimary Dx) 03/18/2023 Telephone Oncology Vaibhav Rosario MD 03/16/2023 Orders Only Oncology Lemuel, Adenoid cystic [place] carcinoma of Kayla, CONFIGURATION MANAGER nasopharynx, 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) 03/12/2023 Nutrition Nutrition Kenya Agarwal MD Martin, Cathy A, ADAM 03/11/2023 Infusion Infusion Services Lemuel Adenoid cy stic [place] carcinoma of Kayla, CONFIGURATION MANAGER nasopharynx, 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) 03/11/2023 Follow-Up Oncology Lemuel, Adenoid cystic [place] carcinoma of Kayla, CONFIGURATION MANAGER nasopharynx, 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) 03/11/2023 Travel 03/09/2023 Telephone Oncology Lorena Hdez, CONFIGURATION MANAGER 03/04/2023 Nutrition Nutrition Kenya Agarwal MD Martin, Cathy A, ADAM 03/04/2023 Orders Only Oncology Lorena Hdez, CONFIGURATION MANAGER 03/04/2023 Telephone Thoracic Medicine Tita Kwon RN 03/04/2023 Orders Only Pain Medicine Evan, Cancer associa kaylie Fernandez MD pain (Primary Dx) 03/03/2023 Follow-Up Thoracic Medicine Kenny Power, Meliaid cy stic carcinoma of nasopharynx, NOS; MD Vaibhav Deep venous thr ombosis <Unspecified side> 03/03/2023 Refill Pain Medicine Tyrell, Chronic pain Anumol, CONFIGURATION MANAGER 03/03/2023 Travel 03/02/2023 Refill Pain Medicine Tyrell, Chronic pain Anumol, CONFIGURATION MANAGER 02/26/2023 Telemedicine Pain Medicine Evan, Chronic pain ( Primary Miguel Fernandez MD Dx) 02/25/2023 Nutrition Nutrition Kenya Agarwal MD Martin, Cathy A, ADAM 02/19/2023 Telephone Radiation Oncology Anthony Lancaster, RN 02/18/2023 Nutrition Nutrition Kenya Agarwal MD Martin, Cathy A, RD 02/12/2023 Clinical Support Radiation Oncology Winter Luu [...] 02/10/2023 Orders Only Speech Pathology Charla Solis Oropharyngjessica Solano, [facility] MAINTENA[employer]CE MECHANIC dysphagia (Prim cristina Dx) 02/08/2023 Hospital Encounter [...] Emerge ncy Room/) 02/04/2023 Follow-Up Thoracic Medicine Kenny Power, Adenoid cy stic MD Vaibhav carcinoma of nasopharynx, NO S 02/04/2023 Clinical Support Radiation Oncology Winter Luu Adeno carcinoma of nasopharynx (Primary Dx); MD Gini Adenoid cystic carcinoma of nasopharynx, NOS 02/04/2023 Travel 02/03/2023 Infusion Infusion Services Duy Rosario MD carcinoma of nasopharynx, 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) 02/03/2023 Orders Only Oncology Lorena Hdez, CONFIGURATION MANAGER 02/03/2023 Travel 02/02/2023 Travel 01/31/2023 Refill Internal Medicine Rohan, Type 2 juliet ryan Peñaloza, mellitus with CONFIGURATION MANAGER hyperglycemia (Primary Dx) 01/28/2023 Telephone Radiation Oncology Felisa Castillo, JCARLOS 01/28/2023 Orders Only Oncology Lorena Hdez, CONFIGURATION MANAGER 01/26/2023 Hospital Encounter Uro/Ortho/GI Wattana, Chronic p ain (Primary Dx); - MD Felisa Swallowing painful; 02/01/2023 Amanda, Abdominal pain, epigastric; MD Jad Rectal hemorrhage; Amanda Proctor, Mucositis due to antineoplastic therapy; Adenoid cystic carcinoma of nasopharynx, NOS; Karissa, Hypomagnesemia; Rudy, Severe protein -calorie malnutrition; Encounter for adjustment and management of vascular access device; Dillon Agrawal, Type 2 diabete s mellitus with hyperglycemia; Type 2 diabetes mellitus without complic ation; Kt Hematochezia Rashaun Wiley MD 01/26/2023 Travel 01/26/2023 Telephone Radiation Oncology Felisa Castillo RN 01/26/2023 Telephone Radiation Oncology Felisa Castillo RN 01/25/2023 Nutrition Nutrition Kenya Agarwal MD Martin, Cathy A, ADAM 01/25/2023 Hospital Encounter Radiation Oncology Kenya Agarwal MD 01/25/2023 Telephone Radiation Oncology Felisa Castillo RN 01/22/2023 Nutrition Nutrition Kenya Agarwal MD Martin, Cathy A, RD 01/22/2023 Travel 01/21/2023 Infusion Infusion Services Duy Hdez Lorena carcinoma of Kayla, CONFIGURATION MANAGER nasopharynx, 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) 01/21/2023 Follow-Up Thoracic Medicine Duy Rosario MD carcinoma of nasopharynx, 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) 01/21/2023 Travel 01/20/2023 Consult Pain Medicine Williams, senior living cur rent use of opiate analgesic (Primary Dx); Rogerio, Adenocarcinoma of nasopharynx; 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; Neoplasm relate d pain (acute) (chronic) 01/20/2023 Documentation Pain Medicine Randall Ferrer 01/20/2023 Travel 01/19/2023 Clinical Support Radiation Oncology Winter Luu MD 01/19/2023 Travel 01/14/2023 Orders Only Speech Pathology Gorman, Dysphagia, Mukund oropharyngeal p enrike Cervantes, (Primary Dx) 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 01/12/2023 Refill Internal Medicine Yao Ordaz on MD Karen 01/11/2023 Hospital Encounter /GI [...] of glucocorticoids and synthetic analogues, subsequent encounter; 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 exterminator 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 use of systemic steroid; Hyperlipidemia, [...] ADAM 01/08/2023 Travel 01/07/2023 Infusion Infusion Services Melia Hdezid anna Carrillo carcinoma of Kayla, CONFIGURATION MANAGER nasopharynx, 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) 01/07/2023 Follow-Up Oncology Lemuel, Adenoid cystic Lorena carcinoma of Kayla, CONFIGURATION MANAGER nasopharynx, 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) 01/07/2023 Travel 01/06/2023 Infusion Infusion Services Lemuel, Adenoid cy stic Lorena carcinoma of Kayla, CONFIGURATION MANAGER nasopharynx, 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) 01/06/2023 Travel 01/05/2023 Travel 01/04/2023 Clinical Support Radiation Oncology Winter Luu MD nasopharynx (Pr imary Dx) 01/04/2023 Infusion Infusion Services Lemuel, Adenoid cy stic Lorena carcinoma of Kayla, CONFIGURATION MANAGER nasopharynx, 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) 01/04/2023 Travel 01/01/2023 Infusion Infusion Services Lemuel Adenoid cy stic Lorena carcinoma of Kayla, CONFIGURATION MANAGER nasopharynx, 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) 01/01/2023 Follow-Up Thoracic Medicine Kenny Power, Adenoid cy stic carcinoma of nasopharynx, NOS (Primary Dx); MD Vaibhav Neoplasm relate d pain (acute) (chronic) 01/01/2023 Refill Pain Medicine Geo, Neoplasm relat ed pain Brittni Benjamin, RN (acute) (chroni c) 01/01/2023 Travel 12/31/2022 Telephone Thoracic Medicine Doyle, Pain med r equest and Tita Mayorga, nausea - missed RN treatment 12/31/2022 Orders Only Oncology Lemuel, Adenoid cystic Lorena carcinoma of Kayla, CONFIGURATION MANAGER nasopharynx, 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) 12/30/2022 Hospital [...] 12/29/2022 Travel 12/28/2022 Clinical Support Radiation Oncology [place] MD 12/28/2022 Nutrition Nutrition Kenya Agarwal MD Martin, Cathy A, RD 12/28/2022 Travel 12/25/2022 Travel 12/24/2022 Infusion Infusion Services Hdez, Adenoid cy stic Lorena carcinoma of Kayla, CONFIGURATION MANAGER nasopharynx, 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) 12/24/2022 Follow-Up Thoracic Medicine Melia Rosarioid cy rain [...] Hdez, Adenoid cystic Lorena carcinoma of Kayla, CONFIGURATION MANAGER nasopharynx, 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) 12/18/2022 Orders Only Radiation Oncology Lindy Montenegro PA 12/18/2022 Orders Only Radiation Oncology Lan, Adenocarc inoma of Lindy nasopharynx BALJINDER Sotelo 12/17/2022 Clinical Support Radiation Oncology Kenya Agarawl MD Lawrence, Holly D, JCARLOS 12/17/2022 Documentation Radiation Oncology Winter Luu MD 12/17/2022 Documentation Radiation Oncology Winter Luu MD 12/17/2022 Documentation Radiation Oncology Winter Luu MD 12/17/2022 Orders Only Oncology Hdez, Adenoid cystic Lorena carcinoma of Kayla, CONFIGURATION MANAGER nasopharynx, 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) 12/17/2022 Travel [...] BALJINDER Sotelo 12/15/2022 Orders Only Pain Medicine iWlliams, Lyly rela kaylie pain Rogerio, (acute) (chron ic) (Primary Dx) 12/15/2022 Orders Only Pain Medicine Rogerio Kramer MD 12/15/2022 Orders Only Ophthalmology Razmandi, Sixth (abducen t) Maya, OD nerve palsy, [...] Oncology Lemuel, Adenoid cystic [place]orena carcinoma of [place], CONFIGURATION MANAGER nasopharynx, 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) 12/05/2022 Telephone Radiation Oncology Winter Luu MD 12/05/2022 Orders Only Radiation Oncology Winter Luu Adenocarc inoma of MD Gini nasopharynx (Pr imary Dx) 12/04/2022 Hospital Encounter Matthew Benitez MD HessLorena, CONFIGURATION MANAGER 12/04/2022 Telephone Head and Neck Antonella, Surgery Red Costa, CONFIGURATION MANAGER 12/04/2022 Multidisciplinary Visit Head and Neck Antonella, Surgery Red Costa, CONFIGURATION MANAGER 12/04/2022 Telephone Radiation Oncology Maria Luz Cochran, RN 12/02/2022 Orders Only Radiation Oncology Lan Adenocarc inoma of Lindy nasopharynx (Pr imBALJINDER Mendez Dx) 12/02/2022 Orders Only Radiation Oncology Winter Luu Adenocarc inoma frankie Rubalcava MD nasopharynx (Pr imary Dx) 11/30/2022 Ancillary Procedure Radiology Lemuel, Adenocar cinoma of Lorena nasopharynx [place], CONFIGURATION MANAGER 11/30/2022 Travel 11/27/2022 Ancillary Procedure Radiology Lan Adenocar cinoma of nasopharynx; 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 BALJINDER Sotelo 11/27/2022 Travel 11/26/2022 Consult Thoracic Medicine Carly Rosario MD nasopharynx 11/26/2022 Consult Radiation Oncology Winter Luu Adenocarc inoma of nasopharynx; 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 11/26/2022 Travel 11/24/2022 Lab Requisition David Nunez MD Xu, Ya, MD 11/23/2022 Telephone Oncology Ofe Bardales RN 11/22/2022 Orders Only Dental Oncology Nando Aguayo MD observation for other suspected condi tion ruled out (Prim cristina Dx) 11/20/2022 Telephone Surgical Oncology Elana Child, JCARLOS 11/17/2022 Office Visit Head and Neck Kenya Agarwal of Surgery MD Sarah nasopharynx 11/17/2022 NPR Patient Access Kenya Agarwal MD 11/17/2022 Travel 11/16/2022 Orders Only Head and Neck McAnulty, Adenocarcinoma of Surgery Red M, nasopharynx (Pr imary CONFIGURATION MANAGER Dx) 11/12/2022 Orders Only Head and Neck Honeycutt, Surgery BALJINDER Branch 11/12/2022 Orders Only Head and Neck McAnulty, Adenocarcinoma of nasopharynx (Primary Dx); Surgery Red M, 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 CONFIGURATION MANAGER after 04/13/2022 Surgical History Surgery Date Site/Laterality Comments APPENDECTOMY [id number] COLONOSCOPY [id number] CHOLECYSTECTOMY [id number] KNEE ARTHROPLASTY Right SHOULDER SURGERY 050@2010 Left UPPER GASTROINTESTINAL ENDOSCOPY [id number] SECTION, CLASSIC 11/01/1984 - 10/31/1985 PARTIAL HYSTERECTOMY 03/01/2012 - 03/31/2012 MYRINGOTOMY WITH ASPIRATION AND 11/01/2019 - 10/31/2020 INSERTION PE TUBES SLEEVE GASTROPLASTY N/A Medical History Medical History Date Comments Hypertension [id number] Hyperlipidemia [id number] Allergic rhinitis [id number] Fatty liver [id number] Gastric reflux [id number] Gastric ulcer [id number] Crohn's disease [id number] Gout [id number] Type 2 diabetes mellitus with 3702602 hyperglycemia Anxiety [id number] Chronic obstructive pulmonary disease On home supplemental oxygen Congestive heart disease Acute thrombosis of right axillary 02/08/2023 also bilateral basilic and left vein cephalic vein thromb oses Family History Medical History Relation Name Comments [...] at Date Recorded Female 11/12/2022 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 Obstetrics History Last Filed Vital Signs Vital Sign Reading Time Taken Comments Blood Pressure 108/74 03/31/2023 9:50 AM CDT Pulse 80 03/31/2023 9:50 AM CDT Temperature 36.3 C (97.3 F) 03/31/2023 9:50 AM CDT Respiratory Rate 18 03/31/2023 9:50 AM CDT Oxygen Saturation 94% 03/31/2023 9:50 AM CDT Inhaled Oxygen Concentration - - Weight 141.4 kg (311 lb 11.7 oz) 03/31/2023 9:50 AM CDT Height 155 cm (5' 1.02") 03/31/2023 9:50 AM CDT Body Mass Index 58.85 03/31/2023 9:50 AM CDT Plan of Treatment Date Type Specialty Care Team Description 04/15/2023 Telemedicine Gastroenterology, Kain Saez MD Hepatology & Nutrition [address] [place] [address] [phone] (Millie portillo) 04/22/2023 Lab Lab Winter Luu MD [address] [place] [address] [phone] (Millie portillo) 04/22/2023 Ancillary Procedure Radiology Winter Luu MD [address] [place] [address] [phone] (Millie portillo) 04/22/2023 Follow-Up Radiation Oncology Winter Luu MD [address] [place] [address] [phone] (Wo rk) 04/22/2023 Follow-Up Thoracic Medicine Vaibhav Rosario MD [address] [place] [address] [phone] (Wo rk) 04/26/2023 Follow-Up Pain Medicine Miguel Gordon MD [address] [place] [address] [phone] (Wo rk) 05/06/2023 Treatment Speech Pathology Monico Poole MD [address] [place] [phone] Sheba Olivarez, [facility] MAINTENANCE MECHANIC [address] [place] [address] [address] [place] [address] 06/21/2023 Telephone Endocrinology Angela Lopes AP RN [address] [place] [phone] Freya Kimball RN [address] [place] [phone] 07/22/2023 Appointment Lab Angela Lopes AP RN [address] [place] [address] [phone] (Wo rk) 07/22/2023 Appointment Ophthalmology Suzanne Mcgrath MD [address] [place] [address] [phone] (Wo rk) 07/28/2023 Telemedicine Endocrinology No Andrade MD [address] [place] [address] [phone] (Wo rk) Health Maintenance Due Date [...] the results section. CONTROLLED SUBSTANCE Routine 01/20/2023 moth exterminator current Re sults for MONITORING PANEL, URINE [...] Adenoid cystic Result s for 8:28 AM DOUGH MIXER OPERATOR carcinoma of this procedure nasopharynx, NOS are in the results section. Results CBC Routine 01/07/2023 Adenoid cystic Results for 8:28 AM DOUGH MIXER OPERATOR carcinoma of this procedure nasopharynx, NOS are in the results section. FRACTIONATED BILIRUBIN Routine 01/07/2023 Adenoid cystic Res ults for 8:28 AM DOUGH MIXER OPERATOR carcinoma of this procedure nasopharynx, NOS are in the results section. TOTAL PROTEIN Routine 01/07/2023 Adenoid cystic Results for 8:28 AM DOUGH MIXER OPERATOR carcinoma of this procedure nasopharynx, NOS are in the results section. ASPARTATE AMINOTRANSFERASE Routine 01/07/2023 Adenoid cystic Results for 8:28 AM DOUGH MIXER OPERATOR carcinoma of this procedure nasopharynx, NOS are in the results section. ALANINE AMINOTRANSFERASE Routine 01/07/2023 Adenoid cystic R esults for 8:28 AM DOUGH MIXER OPERATOR carcinoma of this procedure nasopharynx, NOS are in the results section. ALKALINE PHOSPHATASE Routine 01/07/2023 Adenoid cystic Resul ts for 8:28 AM DOUGH MIXER OPERATOR carcinoma of this procedure nasopharynx, NOS are in the results section. ALBUMIN LEVEL Routine 01/07/2023 Adenoid cystic Results for 8:28 AM DOUGH MIXER OPERATOR carcinoma of this procedure nasopharynx, NOS are in the results section. CALCIUM LEVEL TOTAL Routine 01/07/2023 Adenoid cystic Result s for 8:28 AM DOUGH MIXER OPERATOR carcinoma of this procedure nasopharynx, NOS are in the results section. .GLOMERULAR FILTRATION Routine 01/07/2023 Adenoid cystic Res ults for RATE 8:28 AM DOUGH MIXER OPERATOR carcinoma of this procedure nasopharynx, NOS are in the results section. SERUM CREATININE Routine 01/07/2023 Adenoid cystic Results f or 8:28 AM DOUGH MIXER OPERATOR carcinoma of this procedure nasopharynx, NOS are in the results section. ELECTROLYTE PANEL Routine 01/07/2023 Adenoid cystic Results for 8:28 AM DOUGH MIXER OPERATOR carcinoma of this procedure nasopharynx, NOS are in the results section. BLOOD UREA NITROGEN Routine 01/07/2023 Adenoid cystic Result s for 8:28 AM DOUGH MIXER OPERATOR carcinoma of this procedure nasopharynx, NOS are in the results section. GLUCOSE LEVEL Routine 01/07/2023 Adenoid cystic Results for 8:28 AM DOUGH MIXER OPERATOR carcinoma of this procedure nasopharynx, NOS are in the results section. PHOSPHORUS LEVEL Routine 01/07/2023 Adenoid cystic Results f or 8:28 AM DOUGH MIXER OPERATOR carcinoma of this procedure nasopharynx, NOS are in the results section. MAGNESIUM LEVEL Routine 01/07/2023 Adenoid cystic Results fo r 8:28 AM DOUGH MIXER OPERATOR carcinoma of this procedure nasopharynx, NOS are in the results section. COMPLETE BLOOD COUNT W/ Routine 01/07/2023 Adenoid cystic DIFFERENTIAL 8:28 AM DOUGH MIXER OPERATOR carcinoma of nasopharynx, NOS COMPREHENSIVE METABOLIC Routine 01/07/2023 Adenoid cystic PANEL 8:28 AM DOUGH MIXER OPERATOR carcinoma of nasopharynx, NOS MANUAL DIFFERENTIAL Routine 01/01/2023 Adenoid cystic Result s for 8:26 AM DOUGH MIXER OPERATOR carcinoma of this procedure nasopharynx, NOS are in the results section. Results CBC Routine 01/01/2023 Adenoid cystic Results for 8:26 AM DOUGH MIXER OPERATOR carcinoma of this procedure nasopharynx, NOS are in the results section. FRACTIONATED BILIRUBIN Routine 01/01/2023 Adenoid cystic Res ults for 8:26 AM DOUGH MIXER OPERATOR carcinoma of this procedure nasopharynx, NOS are in the results section. TOTAL PROTEIN Routine 01/01/2023 Adenoid cystic Results for 8:26 AM DOUGH MIXER OPERATOR carcinoma of this procedure nasopharynx, NOS are in the results section. ASPARTATE AMINOTRANSFERASE Routine 01/01/2023 Adenoid cystic Results for 8:26 AM DOUGH MIXER OPERATOR carcinoma of this procedure nasopharynx, NOS are in the results section. ALANINE AMINOTRANSFERASE Routine 01/01/2023 Adenoid cystic R esults for 8:26 AM DOUGH MIXER OPERATOR carcinoma of this procedure nasopharynx, NOS are in the results section. ALKALINE PHOSPHATASE Routine 01/01/2023 Adenoid cystic Resul ts for 8:26 AM DOUGH MIXER OPERATOR carcinoma of this procedure nasopharynx, NOS are in the results section. ALBUMIN LEVEL Routine 01/01/2023 Adenoid cystic Results for 8:26 AM DOUGH MIXER OPERATOR carcinoma of this procedure nasopharynx, NOS are in the results section. CALCIUM LEVEL TOTAL Routine 01/01/2023 Adenoid cystic Result s for 8:26 AM DOUGH MIXER OPERATOR carcinoma of this procedure nasopharynx, NOS are in the results section. .GLOMERULAR FILTRATION Routine 01/01/2023 Adenoid cystic Res ults for RATE 8:26 AM DOUGH MIXER OPERATOR carcinoma of this procedure nasopharynx, NOS are in the results section. SERUM CREATININE Routine 01/01/2023 Adenoid cystic Results f or 8:26 AM DOUGH MIXER OPERATOR carcinoma of this procedure nasopharynx, NOS are in the results section. ELECTROLYTE PANEL Routine 01/01/2023 Adenoid cystic Results for 8:26 AM DOUGH MIXER OPERATOR carcinoma of this procedure nasopharynx, NOS are in the results section. BLOOD UREA NITROGEN Routine 01/01/2023 Adenoid cystic Result s for 8:26 AM DOUGH MIXER OPERATOR carcinoma of this procedure nasopharynx, NOS are in the results section. GLUCOSE LEVEL Routine 01/01/2023 Adenoid cystic Results for 8:26 AM DOUGH MIXER OPERATOR carcinoma of this procedure nasopharynx, NOS are in the results section. PHOSPHORUS LEVEL Routine 01/01/2023 Adenoid cystic Results f or 8:26 AM DOUGH MIXER OPERATOR carcinoma of this procedure nasopharynx, NOS are in the results section. MAGNESIUM LEVEL Routine 01/01/2023 Adenoid cystic Results fo r 8:26 AM DOUGH MIXER OPERATOR carcinoma of this procedure nasopharynx, NOS are in the results section. COMPLETE BLOOD COUNT W/ Routine 01/01/2023 Adenoid cystic DIFFERENTIAL 8:26 AM DOUGH MIXER OPERATOR carcinoma of nasopharynx, NOS COMPREHENSIVE METABOLIC Routine 01/01/2023 Adenoid cystic PANEL 8:26 AM DOUGH MIXER OPERATOR carcinoma of nasopharynx, NOS [place] [employer], Routine 12/29/2022 Sixth (abducent) R esults for INTERMEDIATE - OU - BOTH 10:51 AM DOUGH MIXER OPERATOR nerve palsy, lef t this procedure EYES eye are in the results section. OCT, OPTIC NERVE - OU - Routine 12/29/2022 Sixth (abducent) Results for BOTH EYES 10:43 AM DOUGH MIXER OPERATOR nerve palsy, left this proce dure eye are in the results section. OCT, RETINA - OU - BOTH Routine 12/29/2022 Sixth (abducent) Results for EYES 10:43 AM DOUGH MIXER OPERATOR nerve palsy, left this proce dure eye are in the results section. MANUAL DIFFERENTIAL Routine 12/24/2022 Adenoid cystic Result s for 9:16 AM DOUGH MIXER OPERATOR carcinoma of this procedure nasopharynx, NOS are in the results section. Results CBC Routine 12/24/2022 Adenoid cystic Results for 9:16 AM DOUGH MIXER OPERATOR carcinoma of this procedure nasopharynx, NOS are in the results section. FRACTIONATED BILIRUBIN Routine 12/24/2022 Adenoid cystic Res ults for 9:16 AM DOUGH MIXER OPERATOR carcinoma of this procedure nasopharynx, NOS are in the results section. TOTAL PROTEIN Routine 12/24/2022 Adenoid cystic Results for 9:16 AM DOUGH MIXER OPERATOR carcinoma of this procedure nasopharynx, NOS are in the results section. ASPARTATE AMINOTRANSFERASE Routine 12/24/2022 Adenoid cystic Results for 9:16 AM DOUGH MIXER OPERATOR carcinoma of this procedure nasopharynx, NOS are in the results section. ALANINE AMINOTRANSFERASE Routine 12/24/2022 Adenoid cystic R esults for 9:16 AM DOUGH MIXER OPERATOR carcinoma of this procedure nasopharynx, NOS are in the results section. ALKALINE PHOSPHATASE Routine 12/24/2022 Adenoid cystic Resul ts for 9:16 AM DOUGH MIXER OPERATOR carcinoma of this procedure nasopharynx, NOS are in the results section. ALBUMIN LEVEL Routine 12/24/2022 Adenoid cystic Results for 9:16 AM DOUGH MIXER OPERATOR carcinoma of this procedure nasopharynx, NOS are in the results section. CALCIUM LEVEL TOTAL Routine 12/24/2022 Adenoid cystic Result s for 9:16 AM DOUGH MIXER OPERATOR carcinoma of this procedure nasopharynx, NOS are in the results section. .GLOMERULAR FILTRATION Routine 12/24/2022 Adenoid cystic Res ults for RATE 9:16 AM DOUGH MIXER OPERATOR carcinoma of this procedure nasopharynx, NOS are in the results section. SERUM CREATININE Routine 12/24/2022 Adenoid cystic Results f or 9:16 AM DOUGH MIXER OPERATOR carcinoma of this procedure nasopharynx, NOS are in the results section. ELECTROLYTE PANEL Routine 12/24/2022 Adenoid cystic Results for 9:16 AM DOUGH MIXER OPERATOR carcinoma of this procedure nasopharynx, NOS are in the results section. BLOOD UREA NITROGEN Routine 12/24/2022 Adenoid cystic Result s for 9:16 AM DOUGH MIXER OPERATOR carcinoma of this procedure nasopharynx, NOS are in the results section. GLUCOSE LEVEL Routine 12/24/2022 Adenoid cystic Results for 9:16 AM DOUGH MIXER OPERATOR carcinoma of this procedure nasopharynx, NOS are in the results section. PHOSPHORUS LEVEL Routine 12/24/2022 Adenoid cystic Results f or 9:16 AM DOUGH MIXER OPERATOR carcinoma of this procedure nasopharynx, NOS are in the results section. MAGNESIUM LEVEL Routine 12/24/2022 Adenoid cystic Results fo r 9:16 AM DOUGH MIXER OPERATOR carcinoma of this procedure nasopharynx, NOS are in the results section. COMPLETE BLOOD COUNT W/ Routine 12/24/2022 Adenoid cystic DIFFERENTIAL 9:16 AM DOUGH MIXER OPERATOR carcinoma of nasopharynx, NOS COMPREHENSIVE METABOLIC Routine 12/24/2022 Adenoid cystic PANEL 9:16 AM DOUGH MIXER OPERATOR carcinoma of nasopharynx, NOS COVID-19 (SARS-COV-2) Routine 12/23/2022 Suspected COVID-19 Results for PCR-ASYMPTOMATIC MC 12:01 PM DOUGH MIXER OPERATOR this pro cedure are in the results section. POC GLUCOSE SCREEN Routine 12/15/2022 Results f or 6:07 PM DOUGH MIXER OPERATOR this procedure are in the results section. POC GLUCOSE SCREEN Routine 12/15/2022 Results f or 12:52 PM DOUGH MIXER OPERATOR this procedure are in the results section. OCT, OPTIC NERVE - OU - Routine 12/15/2022 Diplopia Resu lts for BOTH EYES 10:37 AM DOUGH MIXER OPERATOR this procedure are in the results section. OCT, RETINA - OU - BOTH Routine 12/15/2022 Diplopia Resu lts for EYES 10:37 AM DOUGH MIXER OPERATOR this procedure are in the results section. FUNDUS PHOTOS - OU - BOTH Routine 12/15/2022 Diplopia Re sults for EYES 10:37 AM DOUGH MIXER OPERATOR this procedure are in the results section. 3D DENTAL IMAGING (ICAT) Routine 12/15/2022 Encounter for Re sults for 8:42 AM DOUGH MIXER OPERATOR observation for this procedu re other suspected are in the disease ruled out results section. POC GLUCOSE SCREEN Routine 12/15/2022 Results f or 7:19 AM DOUGH MIXER OPERATOR this procedure are in the results section. POC GLUCOSE SCREEN Routine 12/15/2022 Results f or 6:12 AM DOUGH MIXER OPERATOR this procedure are in the results section. MANUAL DIFFERENTIAL AM 12/15/2022 Results for 3:44 AM DOUGH MIXER OPERATOR this procedure are in the results section. Results CBC AM 12/15/2022 Results for 3:44 AM DOUGH MIXER OPERATOR this procedure are in the results section. CALCIUM LEVEL TOTAL AM 12/15/2022 Results for 3:44 AM DOUGH MIXER OPERATOR this procedure are in the results section. .GLOMERULAR FILTRATION AM 12/15/2022 Resul ts for RATE 3:44 AM DOUGH MIXER OPERATOR this procedure are in the results section. SERUM CREATININE AM 12/15/2022 Results for 3:44 AM DOUGH MIXER OPERATOR this procedure are in the results section. ELECTROLYTE PANEL AM 12/15/2022 Results fo r 3:44 AM DOUGH MIXER OPERATOR this procedure are in the results section. BLOOD UREA NITROGEN AM 12/15/2022 Results for 3:44 AM DOUGH MIXER OPERATOR this procedure are in the results section. GLUCOSE LEVEL AM 12/15/2022 Results for 3:44 AM DOUGH MIXER OPERATOR this procedure are in the results section. COMPLETE BLOOD COUNT W/ AM 12/15/2022 DIFFERENTIAL 3:44 AM DOUGH MIXER OPERATOR PHOSPHORUS LEVEL AM 12/15/2022 Results for 3:44 AM DOUGH MIXER OPERATOR this procedure are in the results section. MAGNESIUM LEVEL AM 12/15/2022 Results for 3:44 AM DOUGH MIXER OPERATOR this procedure are in the results section. BASIC METABOLIC PANEL, AM 12/15/2022 CALCIUM TOTAL 3:44 AM DOUGH MIXER OPERATOR POC GLUCOSE SCREEN Routine 12/15/2022 Results f or 2:28 AM DOUGH MIXER OPERATOR this procedure are in the results section. POC GLUCOSE SCREEN Routine 12/14/2022 Results f or 10:04 PM DOUGH MIXER OPERATOR this procedure are in the results section. POC GLUCOSE SCREEN Routine 12/14/2022 Results f or 5:26 PM DOUGH MIXER OPERATOR this procedure are in the results section. POC GLUCOSE SCREEN Routine 12/14/2022 Results f or 4:14 PM DOUGH MIXER OPERATOR this procedure are in the results section. FL MODIFIED BARIUM SWALLOW Routine 12/14/2022 R esults for W SPEECH 2:37 PM DOUGH MIXER OPERATOR this procedure are in the results section. POC GLUCOSE SCREEN Routine 12/14/2022 Results f or 12:08 PM DOUGH MIXER OPERATOR this procedure are in the results section. GENERAL LABORATORY ADD ON Routine 12/14/2022 Re sults for TEST 8:03 AM DOUGH MIXER OPERATOR this procedure are in the results section. POC GLUCOSE SCREEN Routine 12/14/2022 Results f or 7:25 AM DOUGH MIXER OPERATOR this procedure are in the results section. POC GLUCOSE SCREEN Routine 12/14/2022 Results f or 5:55 AM DOUGH MIXER OPERATOR this procedure are in the results section. FRACTIONATED BILIRUBIN AM 12/14/2022 Resul ts for 4:46 AM DOUGH MIXER OPERATOR this procedure are in the results section. TOTAL PROTEIN AM 12/14/2022 Results for 4:46 AM DOUGH MIXER OPERATOR this procedure are in the results section. ASPARTATE AMINOTRANSFERASE AM 12/14/2022 R esults for 4:46 AM DOUGH MIXER OPERATOR this procedure are in the results section. ALANINE AMINOTRANSFERASE AM 12/14/2022 Res ults for 4:46 AM DOUGH MIXER OPERATOR this procedure are in the results section. ALKALINE PHOSPHATASE AM 12/14/2022 Results for 4:46 AM DOUGH MIXER OPERATOR this procedure are in the results section. ALBUMIN LEVEL AM 12/14/2022 Results for 4:46 AM DOUGH MIXER OPERATOR this procedure are in the results section. MANUAL DIFFERENTIAL AM 12/14/2022 Results for 4:46 AM DOUGH MIXER OPERATOR this procedure are in the results section. Results CBC AM 12/14/2022 Results for 4:46 AM DOUGH MIXER OPERATOR this procedure are in the results section. CALCIUM LEVEL TOTAL AM 12/14/2022 Results for 4:46 AM DOUGH MIXER OPERATOR this procedure are in the results section. .GLOMERULAR FILTRATION AM 12/14/2022 Resul ts for RATE 4:46 AM DOUGH MIXER OPERATOR this procedure are in the results section. SERUM CREATININE AM 12/14/2022 Results for 4:46 AM DOUGH MIXER OPERATOR this procedure are in the results section. ELECTROLYTE PANEL AM 12/14/2022 Results fo r 4:46 AM DOUGH MIXER OPERATOR this procedure are in the results section. BLOOD UREA NITROGEN AM 12/14/2022 Results for 4:46 AM DOUGH MIXER OPERATOR this procedure are in the results section. GLUCOSE LEVEL AM 12/14/2022 Results for 4:46 AM DOUGH MIXER OPERATOR this procedure are in the results section. COMPLETE BLOOD COUNT W/ AM 12/14/2022 DIFFERENTIAL 4:46 AM DOUGH MIXER OPERATOR PHOSPHORUS LEVEL AM 12/14/2022 Results for 4:46 AM DOUGH MIXER OPERATOR this procedure are in the results section. MAGNESIUM LEVEL AM 12/14/2022 Results for 4:46 AM DOUGH MIXER OPERATOR this procedure are in the results section. BASIC METABOLIC PANEL, AM 12/14/2022 CALCIUM TOTAL 4:46 AM DOUGH MIXER OPERATOR POC GLUCOSE SCREEN Routine 12/14/2022 Results f or 1:36 AM DOUGH MIXER OPERATOR this procedure are in the results section. POC GLUCOSE SCREEN Routine 12/13/2022 Results f or 9:56 PM DOUGH MIXER OPERATOR this procedure are in the results section. POC GLUCOSE SCREEN Routine 12/13/2022 Results f or 6:31 PM DOUGH MIXER OPERATOR this procedure are in the results section. POC GLUCOSE SCREEN Routine 12/13/2022 Results f or 1:24 PM DOUGH MIXER OPERATOR this procedure are in the results section. POC GLUCOSE SCREEN Routine 12/13/2022 Results f or 8:02 AM DOUGH MIXER OPERATOR this procedure are in the results section. POC GLUCOSE SCREEN Routine 12/13/2022 Results f or 5:58 AM DOUGH MIXER OPERATOR this procedure are in the results section. POC GLUCOSE SCREEN Routine 12/13/2022 Results f or 3:24 AM DOUGH MIXER OPERATOR this procedure are in the results section. MANUAL DIFFERENTIAL AM 12/13/2022 Results for 3:12 AM DOUGH MIXER OPERATOR this procedure are in the results section. Results CBC AM 12/13/2022 Results for 3:12 AM DOUGH MIXER OPERATOR this procedure are in the results section. CALCIUM LEVEL TOTAL AM 12/13/2022 Results for 3:12 AM DOUGH MIXER OPERATOR this procedure are in the results section. .GLOMERULAR FILTRATION AM 12/13/2022 Resul ts for RATE 3:12 AM DOUGH MIXER OPERATOR this procedure are in the results section. SERUM CREATININE AM 12/13/2022 Results for 3:12 AM DOUGH MIXER OPERATOR this procedure are in the results section. ELECTROLYTE PANEL AM 12/13/2022 Results fo r 3:12 AM DOUGH MIXER OPERATOR this procedure are in the results section. BLOOD UREA NITROGEN AM 12/13/2022 Results for 3:12 AM DOUGH MIXER OPERATOR this procedure are in the results section. GLUCOSE LEVEL AM 12/13/2022 Results for 3:12 AM DOUGH MIXER OPERATOR this procedure are in the results section. COMPLETE BLOOD COUNT W/ AM 12/13/2022 DIFFERENTIAL 3:12 AM DOUGH MIXER OPERATOR PHOSPHORUS LEVEL AM 12/13/2022 Results for 3:12 AM DOUGH MIXER OPERATOR this procedure are in the results section. MAGNESIUM LEVEL AM 12/13/2022 Results for 3:12 AM DOUGH MIXER OPERATOR this procedure are in the results section. BASIC METABOLIC PANEL, AM 12/13/2022 CALCIUM TOTAL 3:12 AM DOUGH MIXER OPERATOR POC GLUCOSE SCREEN Routine 12/12/2022 Results f or 9:43 PM DOUGH MIXER OPERATOR this procedure are in the results section. POC GLUCOSE SCREEN Routine 12/12/2022 Results f or 6:16 PM DOUGH MIXER OPERATOR this procedure are in the results section. POC GLUCOSE SCREEN Routine 12/12/2022 Results f or 12:52 PM DOUGH MIXER OPERATOR this procedure are in the results section. POC GLUCOSE SCREEN Routine 12/12/2022 Results f or 7:47 AM DOUGH MIXER OPERATOR this procedure are in the results section. POC GLUCOSE SCREEN Routine 12/12/2022 Results f or 5:52 AM DOUGH MIXER OPERATOR this procedure are in the results section. MANUAL DIFFERENTIAL AM 12/12/2022 Results for 4:30 AM DOUGH MIXER OPERATOR this procedure are in the results section. Results CBC AM 12/12/2022 Results for 4:30 AM DOUGH MIXER OPERATOR this procedure are in the results section. CALCIUM LEVEL TOTAL AM 12/12/2022 Results for 4:30 AM DOUGH MIXER OPERATOR this procedure are in the results section. .GLOMERULAR FILTRATION AM 12/12/2022 Resul ts for RATE 4:30 AM DOUGH MIXER OPERATOR this procedure are in the results section. SERUM CREATININE AM 12/12/2022 Results for 4:30 AM DOUGH MIXER OPERATOR this procedure are in the results section. ELECTROLYTE PANEL AM 12/12/2022 Results fo r 4:30 AM DOUGH MIXER OPERATOR this procedure are in the results section. BLOOD UREA NITROGEN AM 12/12/2022 Results for 4:30 AM DOUGH MIXER OPERATOR this procedure are in the results section. GLUCOSE LEVEL AM 12/12/2022 Results for 4:30 AM DOUGH MIXER OPERATOR this procedure are in the results section. COMPLETE BLOOD COUNT W/ AM 12/12/2022 DIFFERENTIAL 4:30 AM DOUGH MIXER OPERATOR PHOSPHORUS LEVEL AM 12/12/2022 Results for 4:30 AM DOUGH MIXER OPERATOR this procedure are in the results section. MAGNESIUM LEVEL AM 12/12/2022 Results for 4:30 AM DOUGH MIXER OPERATOR this procedure are in the results section. BASIC METABOLIC PANEL, AM 12/12/2022 CALCIUM TOTAL 4:30 AM DOUGH MIXER OPERATOR POC GLUCOSE SCREEN Routine 12/12/2022 Results f or 2:06 AM DOUGH MIXER OPERATOR this procedure are in the results section. POC GLUCOSE SCREEN Routine 12/11/2022 Results f or 10:01 PM DOUGH MIXER OPERATOR this procedure are in the results section. LACTIC ACID, VENOUS Timed Study 12/11/2022 Results for 9:50 PM DOUGH MIXER OPERATOR this procedure are in the results section. LIPASE LEVEL STAT 12/11/2022 Results for 6:21 PM DOUGH MIXER OPERATOR this procedure are in the results section. VENOUS BLOOD GAS STAT 12/11/2022 Results for 6:21 PM DOUGH MIXER OPERATOR this procedure are in the results section. POC GLUCOSE SCREEN Routine 12/11/2022 Results f or 6:10 PM DOUGH MIXER OPERATOR this procedure are in the results section. GENERAL LABORATORY ADD ON Routine 12/11/2022 Re sults for TEST 5:39 PM DOUGH MIXER OPERATOR this procedure are in the results section. KETONE BODIES QUALITATIVE STAT 12/11/2022 Re sults for 5:19 PM DOUGH MIXER OPERATOR this procedure are in the results section. POC GLUCOSE SCREEN Routine 12/11/2022 Results f or 4:51 PM DOUGH MIXER OPERATOR this procedure are in the results section. LIPASE LEVEL STAT 12/11/2022 Results for 4:33 PM DOUGH MIXER OPERATOR this procedure are in the results section. ELECTROLYTE PANEL STAT 12/11/2022 Results fo r 4:33 PM DOUGH MIXER OPERATOR this procedure are in the results section. LACTIC ACID, VENOUS Timed Study 12/11/2022 Results for 4:33 PM DOUGH MIXER OPERATOR this procedure are in the results section. POC GLUCOSE SCREEN Routine 12/11/2022 Results f or 3:34 PM DOUGH MIXER OPERATOR this procedure are in the results section. POC CRITICAL Routine 12/11/2022 Results for 3:34 PM DOUGH MIXER OPERATOR this procedure are in the results section. POC GLUCOSE SCREEN Routine 12/11/2022 Results f or 2:33 PM DOUGH MIXER OPERATOR this procedure are in the results section. POC CRITICAL Routine 12/11/2022 Results for 2:33 PM DOUGH MIXER OPERATOR this procedure are in the results section. POC GLUCOSE SCREEN Routine 12/11/2022 Results f or 12:35 PM DOUGH MIXER OPERATOR this procedure are in the results section. POC GLUCOSE SCREEN Routine 12/11/2022 Results f or 8:14 AM DOUGH MIXER OPERATOR this procedure are in the results section. LACTIC ACID, VENOUS Routine 12/11/2022 Results for 4:37 AM DOUGH MIXER OPERATOR this procedure are in the results section. MANUAL DIFFERENTIAL AM 12/11/2022 Results for 4:30 AM DOUGH MIXER OPERATOR this procedure are in the results section. Results CBC AM 12/11/2022 Results for 4:30 AM DOUGH MIXER OPERATOR this procedure are in the results section. CALCIUM LEVEL TOTAL AM 12/11/2022 Results for 4:30 AM DOUGH MIXER OPERATOR this procedure are in the results section. .GLOMERULAR FILTRATION AM 12/11/2022 Resul ts for RATE 4:30 AM DOUGH MIXER OPERATOR this procedure are in the results section. SERUM CREATININE AM 12/11/2022 Results for 4:30 AM DOUGH MIXER OPERATOR this procedure are in the results section. ELECTROLYTE PANEL AM 12/11/2022 Results fo r 4:30 AM DOUGH MIXER OPERATOR this procedure are in the results section. BLOOD UREA NITROGEN AM 12/11/2022 Results for 4:30 AM DOUGH MIXER OPERATOR this procedure are in the results section. GLUCOSE LEVEL AM 12/11/2022 Results for 4:30 AM DOUGH MIXER OPERATOR this procedure are in the results section. COMPLETE BLOOD COUNT W/ AM 12/11/2022 DIFFERENTIAL 4:30 AM DOUGH MIXER OPERATOR PHOSPHORUS LEVEL AM 12/11/2022 Results for 4:30 AM DOUGH MIXER OPERATOR this procedure are in the results section. MAGNESIUM LEVEL AM 12/11/2022 Results for 4:30 AM DOUGH MIXER OPERATOR this procedure are in the results section. BASIC METABOLIC PANEL, AM 12/11/2022 CALCIUM TOTAL 4:30 AM DOUGH MIXER OPERATOR POC GLUCOSE SCREEN Routine 12/11/2022 Results f or 1:20 AM DOUGH MIXER OPERATOR this procedure are in the results section. POC GLUCOSE SCREEN Routine 12/10/2022 Results f or 10:00 PM DOUGH MIXER OPERATOR this procedure are in the results section. POC GLUCOSE SCREEN Routine 12/10/2022 Results f or 6:29 PM DOUGH MIXER OPERATOR this procedure are in the results section. POC GLUCOSE SCREEN Routine 12/10/2022 Results f or 5:20 PM DOUGH MIXER OPERATOR this procedure are in the results section. CT HEAD WO CONTRAST STAT 12/10/2022 Results for 3:21 PM DOUGH MIXER OPERATOR this procedure are in the results section. POC GLUCOSE SCREEN Routine 12/10/2022 Results f or 1:45 PM DOUGH MIXER OPERATOR this procedure are in the results section. POC GLUCOSE SCREEN Routine 12/10/2022 Results f or 11:35 AM DOUGH MIXER OPERATOR this procedure are in the results section. POC GLUCOSE SCREEN Routine 12/10/2022 Results f or 7:30 AM DOUGH MIXER OPERATOR this procedure are in the results section. URINALYSIS WITH Routine 12/10/2022 Results for MICROSCOPIC IF INDICATED 6:13 AM DOUGH MIXER OPERATOR thi s procedure are in the results section. URINE CULTURE Routine 12/10/2022 Results for 6:13 AM DOUGH MIXER OPERATOR this procedure are in the results section. MANUAL DIFFERENTIAL STAT 12/10/2022 Results for 5:13 AM DOUGH MIXER OPERATOR this procedure are in the results section. Results CBC STAT 12/10/2022 Results for 5:13 AM DOUGH MIXER OPERATOR this procedure are in the results section. CALCIUM LEVEL TOTAL AM 12/10/2022 Results for 5:13 AM DOUGH MIXER OPERATOR this procedure are in the results section. .GLOMERULAR FILTRATION AM 12/10/2022 Resul ts for RATE 5:13 AM DOUGH MIXER OPERATOR this procedure are in the results section. SERUM CREATININE AM 12/10/2022 Results for 5:13 AM DOUGH MIXER OPERATOR this procedure are in the results section. ELECTROLYTE PANEL AM 12/10/2022 Results fo r 5:13 AM DOUGH MIXER OPERATOR this procedure are in the results section. BLOOD UREA NITROGEN AM 12/10/2022 Results for 5:13 AM DOUGH MIXER OPERATOR this procedure are in the results section. GLUCOSE LEVEL AM 12/10/2022 Results for 5:13 AM DOUGH MIXER OPERATOR this procedure are in the results section. HEMOGLOBIN A1C Routine 12/10/2022 Results for 5:13 AM DOUGH MIXER OPERATOR this procedure are in the results section. COMPLETE BLOOD COUNT W/ AM 12/10/2022 DIFFERENTIAL 5:13 AM DOUGH MIXER OPERATOR PHOSPHORUS LEVEL AM 12/10/2022 Results for 5:13 AM DOUGH MIXER OPERATOR this procedure are in the results section. MAGNESIUM LEVEL AM 12/10/2022 Results for 5:13 AM DOUGH MIXER OPERATOR this procedure are in the results section. BASIC METABOLIC PANEL, AM 12/10/2022 CALCIUM TOTAL 5:13 AM DOUGH MIXER OPERATOR POC GLUCOSE SCREEN Routine 12/10/2022 Results f or 1:38 AM DOUGH MIXER OPERATOR this procedure are in the results section. POC GLUCOSE SCREEN Routine 12/09/2022 Results f or 11:18 PM DOUGH MIXER OPERATOR this procedure are in the results section. POC VENOUS BLOOD GAS + Routine 12/09/2022 Resul ts for LACTATE 9:36 PM DOUGH MIXER OPERATOR this procedure are in the results section. FRACTIONATED BILIRUBIN Routine 12/09/2022 Resul ts for 6:01 PM DOUGH MIXER OPERATOR this procedure are in the results section. TOTAL PROTEIN Routine 12/09/2022 Results for 6:01 PM DOUGH MIXER OPERATOR this procedure are in the results section. ASPARTATE AMINOTRANSFERASE Routine 12/09/2022 R esults for 6:01 PM DOUGH MIXER OPERATOR this procedure are in the results section. ALANINE AMINOTRANSFERASE Routine 12/09/2022 Res ults for 6:01 PM DOUGH MIXER OPERATOR this procedure are in the results section. ALKALINE PHOSPHATASE Routine 12/09/2022 Results for 6:01 PM DOUGH MIXER OPERATOR this procedure are in the results section. ALBUMIN LEVEL Routine 12/09/2022 Results for 6:01 PM DOUGH MIXER OPERATOR this procedure are in the results section. CALCIUM LEVEL TOTAL Routine 12/09/2022 Results for 6:01 PM DOUGH MIXER OPERATOR this procedure are in the results section. .GLOMERULAR FILTRATION Routine 12/09/2022 Resul ts for RATE 6:01 PM DOUGH MIXER OPERATOR this procedure are in the results section. SERUM CREATININE Routine 12/09/2022 Results for 6:01 PM DOUGH MIXER OPERATOR this procedure are in the results section. ELECTROLYTE PANEL Routine 12/09/2022 Results fo r 6:01 PM DOUGH MIXER OPERATOR this procedure are in the results section. BLOOD UREA NITROGEN Routine 12/09/2022 Results for 6:01 PM DOUGH MIXER OPERATOR this procedure are in the results section. GLUCOSE LEVEL Routine 12/09/2022 Results for 6:01 PM DOUGH MIXER OPERATOR this procedure are in the results section. MANUAL DIFFERENTIAL STAT 12/09/2022 Results for 6:01 PM DOUGH MIXER OPERATOR this procedure are in the results section. Results CBC STAT 12/09/2022 Results for 6:01 PM DOUGH MIXER OPERATOR this procedure are in the results section. LACTATE DEHYDROGENASE Routine 12/09/2022 Result s for 6:01 PM DOUGH MIXER OPERATOR this procedure are in the results section. APTT Routine 12/09/2022 Results for 6:01 PM DOUGH MIXER OPERATOR this procedure are in the results section. PROTHROMBIN TIME Routine 12/09/2022 Results for 6:01 PM DOUGH MIXER OPERATOR this procedure are in the results section. PHOSPHORUS LEVEL Routine 12/09/2022 Results for 6:01 PM DOUGH MIXER OPERATOR this procedure are in the results section. MAGNESIUM LEVEL Routine 12/09/2022 Results for 6:01 PM DOUGH MIXER OPERATOR this procedure are in the results section. COMPREHENSIVE METABOLIC Routine 12/09/2022 PANEL 6:01 PM DOUGH MIXER OPERATOR COMPLETE BLOOD COUNT W/ Routine 12/09/2022 DIFFERENTIAL 6:01 PM DOUGH MIXER OPERATOR AMMONIA LEVEL Routine 12/09/2022 Results for 6:01 PM DOUGH MIXER OPERATOR this procedure are in the results section. COVID-19 (SARS-COV-2) Routine 12/09/2022 Result s for ASYMPTOMATIC-LT 6:01 PM DOUGH MIXER OPERATOR this procedu re are in the results section. HP MOLECULAR BLOOD Routine 12/04/2022 Results f or COLLECTION 10:56 AM DOUGH MIXER OPERATOR this procedure are in the results section. MISSY GRIFFIN SOLID TUMOR GENOMIC Routine 12/04/2022 ASSAY FUSIONS 2018 10:56 AM DOUGH MIXER OPERATOR INTERPRETATION AND REPORT HP MDA CHRISTINE MUTATION Routine 12/04/2022 ANALYSIS PRECISION PANEL 10:56 AM DOUGH MIXER OPERATOR REPORT MRI SKULL BASE WITH AND Routine 11/30/2022 Adenocarcinoma of Results for WITHOUT CONTRAST 11:12 AM DOUGH MIXER OPERATOR nasopharynx this proced ure are in the results section. PETCT CONTRAST ENHANCED Routine 11/27/2022 Adenocarcinoma of Results for INITIAL TREATMENT STRATEGY 3:57 PM DOUGH MIXER OPERATOR nasop harynx this procedure Malignant neoplasm are in th e of overlapping results sites of section. nasopharynx POC GLUCOSE SCREEN Routine 11/27/2022 Results f or 1:06 PM DOUGH MIXER OPERATOR this procedure are in the results section. POC GLUCOSE SCREEN Routine 11/27/2022 Results f or 12:29 PM DOUGH MIXER OPERATOR this procedure are in the results section. FRACTIONATED BILIRUBIN Routine 11/26/2022 Adenocarcinoma of Results for 1:07 PM DOUGH MIXER OPERATOR nasopharynx this procedure are in the results section. TOTAL PROTEIN Routine 11/26/2022 Adenocarcinoma of Results f or 1:07 PM DOUGH MIXER OPERATOR nasopharynx this procedure are in the results section. ASPARTATE AMINOTRANSFERASE Routine 11/26/2022 Adenocarcinoma of Results for 1:07 PM DOUGH MIXER OPERATOR nasopharynx this procedure are in the results section. ALANINE AMINOTRANSFERASE Routine 11/26/2022 Adenocarcinoma o f Results for 1:07 PM DOUGH MIXER OPERATOR nasopharynx this procedure are in the results section. ALKALINE PHOSPHATASE Routine 11/26/2022 Adenocarcinoma of Re sults for 1:07 PM DOUGH MIXER OPERATOR nasopharynx this procedure are in the results section. ALBUMIN LEVEL Routine 11/26/2022 Adenocarcinoma of Results f or 1:07 PM DOUGH MIXER OPERATOR nasopharynx this procedure are in the results section. CALCIUM LEVEL TOTAL Routine 11/26/2022 Adenocarcinoma of Res ults for 1:07 PM DOUGH MIXER OPERATOR nasopharynx this procedure are in the results section. .GLOMERULAR FILTRATION Routine 11/26/2022 Adenocarcinoma of Results for RATE 1:07 PM DOUGH MIXER OPERATOR nasopharynx this procedure are in the results section. SERUM CREATININE Routine 11/26/2022 Adenocarcinoma of Result s for 1:07 PM DOUGH MIXER OPERATOR nasopharynx this procedure are in the results section. ELECTROLYTE PANEL Routine 11/26/2022 Adenocarcinoma of Resul ts for 1:07 PM DOUGH MIXER OPERATOR nasopharynx this procedure are in the results section. BLOOD UREA NITROGEN Routine 11/26/2022 Adenocarcinoma of Res ults for 1:07 PM DOUGH MIXER OPERATOR nasopharynx this procedure are in the results section. GLUCOSE LEVEL Routine 11/26/2022 Adenocarcinoma of Results f or 1:07 PM DOUGH MIXER OPERATOR nasopharynx this procedure are in the results section. MANUAL DIFFERENTIAL Routine 11/26/2022 Adenocarcinoma of Res ults for 1:07 PM DOUGH MIXER OPERATOR nasopharynx this procedure are in the results section. Results CBC Routine 11/26/2022 Adenocarcinoma of Results fo r 1:07 PM DOUGH MIXER OPERATOR nasopharynx this procedure are in the results section. PROTHROMBIN TIME Routine 11/26/2022 Adenocarcinoma of Result s for 1:07 PM DOUGH MIXER OPERATOR nasopharynx this procedure are in the results section. APTT Routine 11/26/2022 Adenocarcinoma of Results fo r 1:07 PM DOUGH MIXER OPERATOR nasopharynx this procedure are in the results section. THYROID STIMULATING Routine 11/26/2022 Adenocarcinoma of Res ults for HORMONE 1:07 PM DOUGH MIXER OPERATOR nasopharynx this procedure are in the results section. VITAMIN D 25 HYDROXY LEVEL Routine 11/26/2022 Adenocarcinoma of Results for 1:07 PM DOUGH MIXER OPERATOR nasopharynx this procedure are in the results section. URIC ACID Routine 11/26/2022 Adenocarcinoma of Results fo r 1:07 PM DOUGH MIXER OPERATOR nasopharynx this procedure are in the results section. PHOSPHORUS LEVEL Routine 11/26/2022 Adenocarcinoma of Result s for 1:07 PM DOUGH MIXER OPERATOR nasopharynx this procedure are in the results section. MAGNESIUM LEVEL Routine 11/26/2022 Adenocarcinoma of Results for 1:07 PM DOUGH MIXER OPERATOR nasopharynx this procedure are in the results section. LACTATE DEHYDROGENASE Routine 11/26/2022 Adenocarcinoma of R esults for 1:07 PM DOUGH MIXER OPERATOR nasopharynx this procedure are in the results section. FREE THYROXINE Routine 11/26/2022 Adenocarcinoma of Results for 1:07 PM DOUGH MIXER OPERATOR nasopharynx this procedure are in the results section. COMPREHENSIVE METABOLIC Routine 11/26/2022 Adenocarcinoma of PANEL 1:07 PM DOUGH MIXER OPERATOR nasopharynx COMPLETE BLOOD COUNT W/ Routine 11/26/2022 Adenocarcinoma of DIFFERENTIAL 1:07 PM DOUGH MIXER OPERATOR nasopharynx NGS BLOOD CONTROL Routine 11/26/2022 Adenocarcinoma of Re sults for 1:07 PM DOUGH MIXER OPERATOR nasopharynx this procedure are in the results section. AP IHC HER2/ARCENIO MATERIAL Routine 11/26/2022 Adenocarcinoma o f REQUEST 12:43 PM DOUGH MIXER OPERATOR nasopharynx AP IHC PD-L1 MATERIAL Routine 11/26/2022 Adenocarcinoma of REQUEST 12:43 PM DOUGH MIXER OPERATOR nasopharynx ANA CRISTINA GRIFFIN PTEN MUTATION Routine 11/26/2022 Adenocarcinoma of Res ults for MATERIAL REQUEST 12:43 PM DOUGH MIXER OPERATOR nasopharynx this proced ure are in the results section. ANA CRISTINA GRIFFIN MTOR MATERIAL Routine 11/26/2022 Adenocarcinoma of Res ults for REQUEST 12:43 PM DOUGH MIXER OPERATOR nasopharynx this procedure are in the results section. ANA CRISTINA GRIFFIN ERBB2 MUTATION Routine 11/26/2022 Adenocarcinoma of Re sults for ANALAYSIS MATERIAL REQUEST 12:43 PM DOUGH MIXER OPERATOR nasopharynx t his procedure are in the results section. ANA CRISTINA GRIFFIN EGFR MUTATION Routine 11/26/2022 Adenocarcinoma of Res ults for MATERIAL REQUEST 12:43 PM DOUGH MIXER OPERATOR nasopharynx this proced ure are in the results section. ANA CRISTINA GRIFFIN ALK MUTATION Routine 11/26/2022 Adenocarcinoma of Resu lts for ANALAYSIS MATERIAL REQUEST 12:43 PM DOUGH MIXER OPERATOR nasopharynx t his procedure are in the results section. ANA CRISTINA GRIFFIN NTRK3 FUSION Routine 11/26/2022 Adenocarcinoma of Resu lts for ANALYSIS MATERIAL REQUEST 12:43 PM DOUGH MIXER OPERATOR nasopharynx th is procedure are in the results section. ANA CRISTINA GRIFFIN NTRK2 FUSION Routine 11/26/2022 Adenocarcinoma of Resu lts for ANALYSIS MATERIAL REQUEST 12:43 PM DOUGH MIXER OPERATOR nasopharynx th is procedure are in the results section. ANA CRISTINA GRIFFIN NTRK1 FUSION Routine 11/26/2022 Adenocarcinoma of Resu lts for ANALYSIS MATERIAL REQUEST 12:43 PM DOUGH MIXER OPERATOR nasopharynx th is procedure are in the results section. MANUAL DIFFERENTIAL Routine 11/17/2022 Adenocarcinoma of Res ults for 12:11 PM DOUGH MIXER OPERATOR nasopharynx this procedure are in the results section. Results CBC Routine 11/17/2022 Adenocarcinoma of Results fo r 12:11 PM DOUGH MIXER OPERATOR nasopharynx this procedure are in the results section. FRACTIONATED BILIRUBIN Routine 11/17/2022 Adenocarcinoma of Results for 12:11 PM DOUGH MIXER OPERATOR nasopharynx this procedure are in the results section. TOTAL PROTEIN Routine 11/17/2022 Adenocarcinoma of Results f or 12:11 PM DOUGH MIXER OPERATOR nasopharynx this procedure are in the results section. ASPARTATE AMINOTRANSFERASE Routine 11/17/2022 Adenocarcinoma of Results for 12:11 PM DOUGH MIXER OPERATOR nasopharynx this procedure are in the results section. ALANINE AMINOTRANSFERASE Routine 11/17/2022 Adenocarcinoma o f Results for 12:11 PM DOUGH MIXER OPERATOR nasopharynx this procedure are in the results section. ALKALINE PHOSPHATASE Routine 11/17/2022 Adenocarcinoma of Re sults for 12:11 PM DOUGH MIXER OPERATOR nasopharynx this procedure are in the results section. ALBUMIN LEVEL Routine 11/17/2022 Adenocarcinoma of Results f or 12:11 PM DOUGH MIXER OPERATOR nasopharynx this procedure are in the results section. CALCIUM LEVEL TOTAL Routine 11/17/2022 Adenocarcinoma of Res ults for 12:11 PM DOUGH MIXER OPERATOR nasopharynx this procedure are in the results section. .GLOMERULAR FILTRATION Routine 11/17/2022 Adenocarcinoma of Results for RATE 12:11 PM DOUGH MIXER OPERATOR nasopharynx this procedure are in the results section. SERUM CREATININE Routine 11/17/2022 Adenocarcinoma of Result s for 12:11 PM DOUGH MIXER OPERATOR nasopharynx this procedure are in the results section. ELECTROLYTE PANEL Routine 11/17/2022 Adenocarcinoma of Resul ts for 12:11 PM DOUGH MIXER OPERATOR nasopharynx this procedure are in the results section. BLOOD UREA NITROGEN Routine 11/17/2022 Adenocarcinoma of Res ults for 12:11 PM DOUGH MIXER OPERATOR nasopharynx this procedure are in the results section. GLUCOSE LEVEL Routine 11/17/2022 Adenocarcinoma of Results f or 12:11 PM DOUGH MIXER OPERATOR nasopharynx this procedure are in the results section. PROLACTIN Routine 11/17/2022 Adenocarcinoma of Results fo r 12:11 PM DOUGH MIXER OPERATOR nasopharynx this procedure are in the results section. INSULIN LIKE GROWTH FACTOR Routine 11/17/2022 Adenocarcinoma of Results for 1 12:11 PM DOUGH MIXER OPERATOR nasopharynx this procedure are in the results section. TOTAL T3 Routine 11/17/2022 Adenocarcinoma of Results fo r 12:11 PM DOUGH MIXER OPERATOR nasopharynx this procedure are in the results section. 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 THYROID STIMULATING Routine 11/17/2022 Adenocarcinoma of Res ults for HORMONE 12:11 PM DOUGH MIXER OPERATOR nasopharynx this procedure are in the results section. LUTEINIZING HORMONE Routine 11/17/2022 Adenocarcinoma of Res ults for 12:11 PM DOUGH MIXER OPERATOR nasopharynx this procedure are in the results section. FOLLICLE STIMULATING Routine 11/17/2022 Adenocarcinoma of Re sults for HORMONE LEVEL 12:11 PM DOUGH MIXER OPERATOR nasopharynx this procedure are in the results section. TESTOSTERONE LEVEL Routine 11/17/2022 Adenocarcinoma of Resu lts for 12:11 PM DOUGH MIXER OPERATOR nasopharynx this procedure are in the results section. ESTRADIOL LEVEL Routine 11/17/2022 Adenocarcinoma of Results for 12:11 PM DOUGH MIXER OPERATOR nasopharynx this procedure are in the results section. ADRENOCORTICOTROPIC Routine 11/17/2022 Adenocarcinoma of Res ults for HORMONE 12:11 PM DOUGH MIXER OPERATOR nasopharynx this procedure are in the results section. CORTISOL Routine 11/17/2022 Adenocarcinoma of Results fo r 12:11 PM DOUGH MIXER OPERATOR nasopharynx this procedure are in the results section. PROTHROMBIN TIME Routine 11/17/2022 Adenocarcinoma of Result s for 12:11 PM DOUGH MIXER OPERATOR nasopharynx this procedure are in the results section. APTT Routine 11/17/2022 Adenocarcinoma of Results fo r 12:11 PM DOUGH MIXER OPERATOR nasopharynx this procedure are in the results section. COMPLETE BLOOD COUNT W/ Routine 11/17/2022 Adenocarcinoma of DIFFERENTIAL 12:11 PM DOUGH MIXER OPERATOR nasopharynx COMPREHENSIVE METABOLIC Routine 11/17/2022 Adenocarcinoma of PANEL 12:11 PM DOUGH MIXER OPERATOR nasopharynx HEPATITIS C VIRUS ANTIBODY Routine 11/17/2022 Adenocarcinoma of Results for 12:11 PM DOUGH MIXER OPERATOR nasopharynx this procedure are in the results section. PATHOLOGY OUTSIDE Routine 10/16/2022 Results fo r INTERPRETATION this procedur e are in the results section. after 04/13/2022 Results (ABNORMAL) .Serum Creatinine (03/11/2023 11:15 AM CDT)Only the most recent of43 resultswithin the time period is included. P athologist Signature Creatinine 1.11 (H) 0.51 - 0.95 [facility] mg/dL Comment: Testing performed at [facility], [address] [place] [address] 98[address] Specimen Anatomical Collection Method Collection Time Receive d Time (Source) Location / / Volume Laterality Blood 03/11/2023 11:15 03/11/2023 AM CDT 11:16 AM CDT Narrative [place] - 03/11/2023 11:40 AM CDT Follow up at 1120, lab prior and infusio n after Lorena Hdez APRN LAB BLOOD ORDERABLES Performing Organization Address City/State/[place] [address] [place] [address] (ABNORMAL) .CBC (03/11/2023 11:15 AM CDT)Only the most recent of43 resultswithin the time period is included. athologist Signature WBC 6.0 4.0 - 11.0 [facility] K/uL Comment: All components of the CBC perfo rmed at [facility], [address] [place] [address] [phone] RBC 4.12 4.00 - 5.50 M/uL [facility] Comment: All components of the CBC perfo rmed at [facility], [address] [place] [address] 7757 3 Hgb 13.3 12.0 - 16.0 gm/dL [facility] Comment: As part of CBC or as an individ ual orderable testing performed at [facility], [address] [place] [address] 82697 Hct 39.6 37.0 - 47.0 % [facility] Comment: As part of CBC testing performe d at [facility], [address] [place] [address] 81502 MCV 96 82 - 98 fL [facility] Comment: As part of CBC testing performe d at [facility], [address] [place] [address] 42428 MCH 32.3 (H) 27.0 - 31.0 pg [facility] Comment: As part of CBC testing performe d at [facility], [address] [place] [address] 84045 MCHC 33.6 31.0 - 36.0 gm/dL [facility] Comment: As part of CBC testing performe d at [facility], [address] [place] [address] 04067 RDW-SD 52.0 (H) 35.1 - 46.3 fL [facility] Comment: As part of CBC testing performe d at [facility], [address] [place] [address] 70017 RDW-CV 14.4 12.0 - 15.5 % [facility] Comment: As part of CBC testing performe d at [facility], [address] [place] [address] 40199 Platelet count 159 140 - 440 K/uL [facility] Y Comment: As part of CBC or an individual orderable testing performed at [facility], [address] [place] [address] 79456 MPV 10.3 4.0 - 10.4 fL [facility] Comment: As part of CBC testing performe d at [facility], [address] [place] [address] 64070 Specimen Anatomical Collection Method Collection Time Receive d Time (Source) Location / / Volume Laterality Blood 03/11/2023 11:15 03/11/2023 AM CDT 11:16 AM CDT Narrative [facility] - 03/11/2023 11:19 AM CDT Follow up at 1120, lab prior and infusio n after Lorena Hdez APRN LAB BLOOD ORDERABLES Performing Organization Address City/State/[place] [address] [place] [address] (ABNORMAL) Glomerular Filtration Rate (03/11/2023 11:15 AM CDT)Only the most recent of43 resultswithin the time period is included. P athologist Signature eGFR 59 (L) >=60 [facility] mL/min/1.73 sq. m Comment: The eGFRcr is [...] fulfill criteria for CKD. Testing performed at [facility], [address] [place], [place] [id number] Specimen Anatomical Collection Method Collection Time Receive d Time (Source) Location / / Volume Laterality Blood 03/11/2023 11:15 03/11/2023 AM CDT 11:16 AM CDT Narrative [facility] - 03/11/2023 11:40 AM CDT Follow up at 1120, lab prior and infusio n after Lorena Hdez APRN LAB BLOOD ORDERABLES Performing Organization Address City/State/ZIP Code Phon e Number [facility] [place] [address] [place] [address] Fractionated Bilirubin (03/11/2023 11:15 AM CDT)Only the most recent of24 resultswithin the time period is included. athologist Signature Bili Total <0.3 <=1.2 mg/dL [facility] Comment: Direct and indirect bilirubin will not b e reported when Total bilirubin result is <0.3 mg/dL Indocyanine Green (ICG) may cause falsel y elevated bilirubin results. Total and direct bilirubin must not be measured from samples containing indocyanine green. False elevation of total bilirubin can b e seen in patients with IgG concentrations above 28 g/L. Testing performed at [facility], [address] [place] [address] Specimen Anatomical Collection Method Collection Time Receive d Time (Source) Location / / Volume Laterality Blood 03/11/2023 11:15 03/11/2023 AM CDT 11:16 AM CDT Narrative [facility] - 03/11/2023 11:40 AM CDT Follow up at 1120, lab prior and infusio n after Lorena Hdez APRN LAB BLOOD ORDERABLES Performing Organization Address City/State/ZIP Code Phon e Number [facility] [place] [address] [place] [address] (ABNORMAL) Differential (03/11/2023 11:15 AM CDT)Only the most recent of43 resultswithin the time period is included. athologist Signature Neutrophil % 61.7 42.0 - 66.0 [facility] % Comment: All components of the Different ial performed at [facility], [address] [place] [address], [place] [address] Lymphocyte % 25.2 24.0 - 44.0 % [facility] Comment: As part of the Differential hailey ting performed at [facility], [address] [place] [address] 88329 Monocyte % 8.5 (H) 2.0 - 7.0 % [facility] Comment: As part of the Differential hailey ting performed at [facility], [address] [place] [address] 11657 Eosinophil % 3.8 1.0 - 4.0 % [facility] Comment: As part of the Differential hailey ting performed at [facility], [address] [place] [address] 77196 Basophil % 0.5 0.0 - 1.0 % [facility] Comment: As part of the Differential hailey ting performed at [facility], [address] [place] [address] 10919 IGRE % 0.3 0.0 - 0.4 % [facility] Comment: IGRE % count includes Metamyelocytes, My elocytes, and Promyelocytes. As part of the Differential testing perf ormed at [facility], [address] [place] [address], [place] [address] Neutrophil Abs 3.71 1.70 - 7.30 K/uL [facility] Comment: As part of the Differential hailey ting performed at [facility], [address] [place] [address] 71643 Lymphocyte Abs 1.52 1.00 - 4.80 K/uL [facility] Comment: As part of the Differential hailey ting performed at [facility], [address] [place] [address], [place] [address] Monocyte Abs 0.51 0.08 - 0.70 K/uL [facility] Comment: As part of the Differential hailey ting performed at [facility], [address] [place] [address] Eosinophil Abs 0.23 0.04 - 0.40 K/uL [facility] Comment: As part of the Differential hailey ting performed at [facility], [address] [place] [address] Basophil Abs 0.03 0.00 - 0.10 K/uL [facility] Comment: As part of the Differential hailey ting performed at [facility], [address] [place] [address] IG Abs 0.02 0.00 - 0.04 K/uL [facility] Comment: As part of the Differential hailey ting performed at [facility], [address] [place] [address] Specimen Anatomical Collection Method Collection Time Receive d Time (Source) Location / / Volume Laterality Blood 03/11/2023 11:15 03/11/2023 AM CDT 11:16 AM CDT Narrative [facility] - 03/11/2023 11:20 AM CDT Follow up at 1120, lab prior and infusio n after Lorena Hdez APRN LAB BLOOD ORDERABLES Performing Organization Address City/State/ZIP Code Phon e Number [address] BUN (03/11/2023 11:15 AM CDT)Only the most recent of43 resultswithin the time period is included. athologist Signature BUN 20 6 - 23 mg/dL [facility] Comment: Testing performed at [facility], [address] [place] [address] Specimen Anatomical Collection Method Collection Time Receive d Time (Source) Location / / Volume Laterality Blood 03/11/2023 11:15 03/11/2023 AM CDT 11:16 AM CDT [facility] - 03/11/2023 11:40 AM CDT Follow up at 1120, lab prior and infusio n after Lorena Hdez APRN LAB BLOOD ORDERABLES Performing Organization Address City/[facility]/ZIP Code Phon e Number [address] (ABNORMAL) ALT (03/11/2023 11:15 AM CDT)Only the most recent of24 resultswithin the time period is included. P athologist Signature ALT 40 (H) <=33 U/L [facility] Comment: Testing performed at [facility], [address] [place] [address] Specimen Anatomical Collection Method Collection Time Receive d Time (Source) Location / / Volume Laterality Blood 03/11/2023 11:15 03/11/2023 AM CDT 11:16 AM CDT [facility] - 03/11/2023 11:40 AM CDT Follow up at 1120, lab prior and infusio n after Lorena Hdez APRN LAB BLOOD ORDERABLES Performing Organization Address City/State/ZIP Code Phon e [address] Aspartate Aminotransferase (03/11/2023 11:15 AM CDT)Only the most recent of24 resultswithin the time period is included. P athologist Signature AST 26 <=32 U/L [facility] Comment: Testing performed at [facility], [address] [place] [address] Specimen Anatomical Collection Method Collection Time Receive d Time (Source) Location / / Volume Laterality Blood 03/11/2023 11:15 03/11/2023 AM CDT 11:16 AM CDT [facility] - 03/11/2023 11:40 AM CDT Follow up at 1120, lab prior and infusio n after Lorena Hdez CONFIGURATION MANAGER LAB BLOOD ORDERABLES Performing Organization Address City/[facility]/ZIP Code Phon e Number [place], [place] [id number] [place] [address] Total Protein (03/11/2023 11:15 AM CDT)Only the most recent of24 resultswithin the time period is included. athologist [facility] Total Protein 7.0 6.4 - 8.3 [facility] g/dL Comment: Testing performed at [facility], [address] [place] [address] 97734 Specimen Anatomical Collection Method Collection Time Receive d Time (Source) Location / / Volume Laterality Blood 03/11/2023 11:15 03/11/2023 AM CDT 11:16 AM CDT [facility] - 03/11/2023 11:40 AM CDT Follow up at 1120, lab prior and infusio n after Lorena Hdez CONFIGURATION MANAGER LAB BLOOD ORDERABLES Performing Organization Address City/[facility]/ZIP [facility] Phon e Number [place], [place] [id number] [place] [address] (ABNORMAL) Alkaline Phosphatase (03/11/2023 11:15 AM CDT)Only the most recent of 24 resultswithin the time period is included. athologist [facility] Alk Phos 107 (H) 35 - 104 [facility] U/L Comment: Testing performed at [facility], [address] [place] [address] 86357 Specimen Anatomical Collection Method Collection Time Receive d Time (Source) Location / / Volume Laterality Blood 03/11/2023 11:15 03/11/2023 AM CDT 11:16 AM CDT Narrative [facility] - 03/11/2023 11:40 AM CDT Follow up at 1120, lab prior and infusio n after Lorena Hdez CONFIGURATION MANAGER LAB BLOOD ORDERABLES Performing Organization Address City/[facility]/ZIP Code Phon e Number [place], [place] [id number] [address] (ABNORMAL) Magnesium Level (03/11/2023 11:15 AM CDT)Only the most recent of42 resultswithin the time period is included. athologist Signature Magnesium 1.4 (L) 1.6 - 2.6 [facility] mg/dL Comment: Testing performed at [facility], [address] [place] [address] 38760 Specimen Anatomical Collection Method Collection Time Receive d Time (Source) Location / / Volume Laterality Blood 03/11/2023 11:15 03/11/2023 AM CDT 11:16 AM CDT [facility] - 03/11/2023 11:40 AM CDT Follow up at 1120, lab prior and infusio n after Lorena Hdez APRN LAB BLOOD ORDERABLES Performing Organization Address City/State/[facility] Code Phon e Number [place], [place] [id number] [place] [address] (ABNORMAL) Glucose Level (03/11/2023 11:15 AM CDT)Only the most recent of43 resultswithin the time period is included. athologist Signature Glucose Level 324 (H) 70 - 99 [facility] mg/dL Comment: Effective 05/27/16, the glucose reference intervals have been updated based on [place] [employer] guidelines (Standards of Medical Care in Diabetes 2016. Diabetes Care 2016; 39: S13-S22). Fasting blood glucose: Normal: 70-99 mg/dL Impaired fasting glucose (increased risk for diabetes or pre-diabetes): 100- 125 mg/dL Diabetes mellitus: >/=126 mg/dL Random blood glucose: Normal: 70-199 mg/dL Note: Random glucose >100 mg/dL is assoc iated with increased risk for diabetes Testing performed at [facility], [address] [place] [address] 29928 Specimen Anatomical Collection Method Collection Time Receive d Time (Source) Location / / Volume Laterality Blood 03/11/2023 11:15 03/11/2023 AM CDT 11:16 AM CDT [facility] - 03/11/2023 11:40 AM CDT Follow up at 1120, lab prior and infusio n after Lorena Hdez APRN LAB BLOOD ORDERABLES Performing Organization Address City/State/ZIP Code Phon e Number [place], [place] [id number] [place] [address] Calcium Level (03/11/2023 11:15 AM CDT)Only the most recent of43 resultswithin the time period is included. athologist Signature Calcium Lvl 9.3 8.4 - 10.2 [facility] mg/dL Comment: Testing performed at [facility], [address] [place] [address] Specimen Anatomical Collection Method Collection Time Receive d Time (Source) Location / / Volume Laterality Blood 03/11/2023 11:15 03/11/2023 AM CDT 11:16 AM CDT [facility] - 03/11/2023 11:40 AM CDT Follow up at 1120, lab prior and infusio n after Lorena Hdez APRN LAB BLOOD ORDERABLES Performing Organization Address City/[facility]/ZIP Code Phon e [address] Albumin Level (03/11/2023 11:15 AM CDT)Only the most recent of24 resultswithin the time period is included. athologist Signature Albumin Lvl 3.9 3.5 - 5.2 [facility] gm/dL Comment: Testing performed at [facility], [address] [place] [address] 24658 Specimen Anatomical Collection Method Collection Time Receive d Time (Source) Location / / Volume Laterality Blood 03/11/2023 11:15 03/11/2023 AM CDT 11:16 AM CDT [facility] - 03/11/2023 11:40 AM CDT Follow up at 1120, lab prior and infusio n after Lorena Hdez APRN LAB BLOOD ORDERABLES Performing Organization Address City/[facility]/ZIP Code Phon e Number [place], [place] [id number] [place] [address] (ABNORMAL) Electrolyte Panel (03/11/2023 11:15 AM CDT)Only the most recent of44 resultswithin the time period is included. athologist Signature Sodium Lvl 134 (L) 136 - 145 [facility] mEq/L Comment: Testing performed at [facility], [address] [place] [address] 96751 Potassium Lvl 4.5 3.5 - 5.1 mEq/L [facility] Y Comment: Testing performed at [facility], [address] [place] [address] 91572 Chloride 100 98 - 107 mEq/L [facility] Comment: Testing performed at [facility], [address] [place] [address] 91752 CO2 24 22 - 29 mEq/L [facility] Comment: Testing performed at [facility], [address] [place] [address] 49786 Anion Gap 10 4 - 14 mEq/L [facility] Comment: Testing performed at [facility], [address] [place] [address] 50469 Specimen Anatomical Collection Method Collection Time Receive d Time (Source) Location / / Volume Laterality Blood 03/11/2023 11:15 03/11/2023 AM CDT 11:16 AM CDT Narrative [facility] - 03/11/2023 11:40 AM CDT Follow up at 1120, lab prior and infusio n after Lorena Hdez APRN LAB BLOOD ORDERABLES Performing Organization Address City/State/ZIP Code Phon e Number [place], [place] [id number] [place] [address] (ABNORMAL) POC Glucose Screen (02/16/2023 12:02 PM [...] Sample Type Capillary POC TELCOR Performing Lab [facility] POC TELCO R Comment: [facility], [address] [place] [address], [place] [address]; Lab Direct or: Chula Jacob MD; Waived Point of Care Testing - Gabrielle Mueller MD Specimen Anatomical Collection Method Collection Time Receive d Time (Source) Location / / Volume Laterality Blood 02/16/2023 12:02 02/16/2023 PM CDT 12:02 PM CDT Ashleigh Rangel MD POCT ORDERABLES - DEVIC E Performing Organization Address City/State/ZIP Code Phon e Number POC [facility]ELCOR Unless otherwise noted, [place] [address] lab tests performed by: Division of Pathology and Laboratory Medicine [address] [place] [address] (ABNORMAL) Anti-Xa Level (02/16/2023 11:13 AM CDT) athologist Signature Anti-Xa Level 1.45 (H) 0.00 - ND 0.10 [place] unit/mL [facility] Comment: Anti-Xa Level (Heparin [...] 2008; 133;[id number] Hep Type Enoxaparin [facility] Specimen Anatomical Collection Method Collection Time Receive d Time (Source) Location / / Volume Laterality Blood 02/16/2023 11:13 02/16/2023 AM CDT 11:21 AM CDT Narrative [facility] - 1:11 PM CDT Nurse please coordinate with lab to draw n Anti-Xa level (low molecular weight heparin level) 4 hours after 02/16/23 morning kourtney xaparin dose is given. Angeli Wang MD LAB BLOOD ORDERABLES Performing Organization Address City/[facility]/ZIP Code Phon e Number [facility] Unless otherwise noted, [address] all lab tests performed by: Division of Pathology and Laboratory Medicine [address] [place] [address] Phosphorus Level (02/16/2023 6:15 AM CDT)Only the most recent of40 resultswithin the time period is included. athologist Signature Phosphorus 4.3 2.5 - 4.5 [facility] mg/dL [facility] Specimen Anatomical Collection Method Collection Time Receive d Time (Source) Location / / Volume Laterality Blood 02/16/2023 6:15 AM 3 6:59 CDT AM CDT DEEPTI Harrell APRN LAB BLOOD ORDERABLES Performing Organization Address City/[facility] Code Phon e Number [facility] Unless otherwise noted, [address] all lab tests performed by: Division of Pathology and Laboratory Medicine [address] [place] [address] General Laboratory Add-On Test (02/12/2023 9:33 AM CDT)Only the most recent of4 resultswithin the time period is included. [facility] gist Method Time Signature Ordered Test Added [facility] Test Needed procalcitonin [facility] Specimen Anatomical Collection Method Collection Time Receive d Time (Source) Location / / Volume Laterality Existing 02/12/2023 9:33 AM 3 9:34 CDT AM CDT Kimberli GALE LAB BLOOD ORDERABLES Performing Organization Address City/[facility] Phon e Number [facility] Unless otherwise noted, [address] all lab tests performed by: Division of Pathology and Laboratory Medicine [address] [place] [address] (ABNORMAL) Procalcitonin (02/12/2023 5:34 AM CDT)Only the most recent of4 resultswithin the time period is included. P athologist Signature Procalcitonin 0.38 (H) <=0.08 ND MD ng/mL [facility] Comment: Procalcitonin > 2.00 ng/mL: Procalcit onin [...] with extended dilution as it exceeds the pipe production worker's recommended limit. Caution should be exercised when interpreting such values and done in conjunction with clinical context. Specimen Anatomical Collection Method Collection Time Receive d Time (Source) Location / / Volume Laterality Blood 02/12/2023 5:34 AM 6:18 CDT AM CDT DEEPTI Harrell APRN LAB BLOOD ORDERABLES Performing Organization Address City/State/ZIP Code Phon e Number [facility] Unless otherwise noted, [place] [address] [place] all lab tests performed by: Division of Pathology and Laboratory Medicine [address] [place] [address] CT Maxillofacial Area with Contrast (02/11/2023 4:15 [...] indicated. I personally reviewed these image(s) deborah machado [...] i ndicated. I personally reviewed these image(s) [email or web address] machado with the resident's/fellow's interpretations, certify that if a procedure was performed I was physically present, and agree with the final report. Angeli Wang MD IMG CT ORDERABLES Creatine Kinase (02/09/2023 5:37 AM CDT)Only the most recent of2 resultswithin the time period is included. P athologist Signature CK 125 26 - 192 [facility] Specimen Anatomical Collection Method Collection Time Receive d Time (Source) Location / / Volume Laterality Blood 02/09/2023 5:37 AM 6:08 CDT AM CDT Shelby GALE LAB BLOOD ORDERABLES Performing Organization Address City/State/ZIP Code Phon e Number [facility] Unless otherwise noted, [place], [place] [id number] [place] [address] all lab tests performed by: Division of Pathology and Laboratory Medicine [facility] US Arm Venous Doppler Bilateral (02/08/2023 6:28 [...] PM CDT Examination: US ARM VENOUS DOPPLER VYJEANA NAJERAPili, 02/08/2023 6:28 PM Clinical History: Adenoid cystic [...] - 02/08/2023 Examination: US ARM VENOUS DOPPLER YANDY BOND, 02/08/2023 6:28 PM Clinical History: Adenoid cystic [...] with the final report. Derrick Gill MD IM US ORDERABLES Echocardiogram 2D Complete with Contrast [...] was not perform ed in this study. ([facility]go Study). Diastology: Indeterminate. Right Ventricle: The right [...] was not perform ed in this study. ([facility]go Study). Diastology: Indeterminate. Right Ventricle: The right [...] purpose. For additional information please refer to http://education.Bizo.com/fa q/OBF107 (This link is being provided for informa tional/ educational purposes only.) The performance of this assay has not be en clinically validated in patients less than 2 years old. Lab test performed by: Lab Mnemonic: [facility] [address] [id number] JOSE ELIAS MELÉNDEZ MD Specimen Anatomical Collection Method Collection Time Receive d Time (Source) Location / / Volume Laterality Blood 02/07/2023 6:52 AM 3 7:22 CDT AM CDT Thao Soria MD LAB BLOOD ORDERABLES Performing Organization Address City/[facility] Code Phon e Number [facility] Hepatitis C Virus Ab (02/07/2023 6:52 AM CDT)Only the most recent of2 results within the time period is included. [facility] HCVAb. Non Reactive Non Reactive [facility] Comment: Antibody detection in the [...] MD LAB BLOOD ORDERABLES Performing Organization Address City/[facility] Phon e Number [facility] Unless otherwise noted, [address] all lab tests performed by: Division of Pathology and Laboratory Medicine [address] [place] [address] Hepatitis B Total Ig Core Ab (SCREENING) (anti-HBc total Ig; HBcAb total Ig) (02/07/2023 6:52 AM CDT) [facility] HBcAb. Non Reactive Non Reactive [facility] Specimen Anatomical Collection Method Collection Time Receive d Time (Source) Location / / Volume Laterality Blood 02/07/2023 6:52 AM 3 8:32 CDT AM CDT Thao Soria MD LAB BLOOD ORDERABLES Performing Organization Address City/[facility] Phon e Number [facility] Unless otherwise noted, [address] all lab tests performed by: Division of Pathology and Laboratory Medicine [address] [place] [address] Hepatitis B Surface Ag (02/07/2023 6:52 AM CDT) [facility] Signature HBsAg. Non Reactive Non Reactive [facility] Specimen Anatomical Collection Method Collection Time Receive d Time (Source) Location / / Volume Laterality Blood 02/07/2023 6:52 AM 3 8:32 CDT AM CDT Thao Soria MD LAB BLOOD ORDERABLES Performing Organization Address City/[facility]/ZIP [facility] Phon e Number [facility] Unless otherwise noted, [address] all lab tests performed by: Division of Pathology and Laboratory Medicine [address] Blood Culture (02/07/2023 6:52 AM CDT)Only the most recent of6 resultswithin the time period is included. athologist Signature Final Report No growth [facility] Specimen Anatomical Collection Method Collection Time Receive d Time (Source) Location / / Volume Laterality Blood 02/07/2023 6:52 AM 3 7:43 (Venipuncture-Ri CDT AM CDT ght) Comment: arm Tim Nguyen MD MICROBIOLOGY - GENERAL ORDER GODWIN Performing Organization Address City/[facility] Phon e Number [facility] Unless otherwise noted, [address] all lab tests performed by: Division of Pathology and Laboratory Medicine [address] Transferrin with TIBC (02/07/2023 6:52 AM CDT) athologist Signature Transferrin 205 200 - 360 [facility] mg/dL [facility] TIBC 287 250 - 450 [facility] mcg/dL [facility] Specimen Anatomical Collection Method Collection Time Receive d Time (Source) Location / / Volume Laterality Blood 02/07/2023 6:52 AM 3 7:07 CDT AM CDT Thao Soria MD LAB BLOOD ORDERABLES Performing Organization Address City/[facility] Phon e Number [facility] Unless otherwise noted, [address] all lab tests performed by: Division of Pathology and Laboratory Medicine [address] Iron Level (02/07/2023 6:52 AM CDT) athologist Signature Iron 51 37 - 145 [facility] mcg/dL [facility] Specimen Anatomical Collection Method Collection Time Receive d Time (Source) Location / / Volume Laterality Blood 02/07/2023 6:52 AM 04/09/202 3 7:07 CDT AM CDT Thao Soria MD LAB BLOOD ORDERABLES Performing Organization Address City/[facility]/ZIP Code Phon e Number [facility] Unless otherwise noted, [address] all lab tests performed by: Division of Pathology and Laboratory Medicine [address] [place] (ABNORMAL) Hemoglobin A1c (02/07/2023 6:52 AM CDT)Only the most recent of2 resultswithin the time period is included. athologist Signature A1C 10.2 (H) 4.3 - 5.6 % [facility] Comment: HbA1c values >=6.5% are diagnostic of di abetes mellitus. Diagnosis should be confirmed by repeat testing. Therapeutic Action suggested: >8.0% HbA1 c; Goal of therapy: <7.0% HbA1c Specimen Anatomical Collection Method Collection Time Receive d Time (Source) Location / / Volume Laterality Blood 02/07/2023 6:52 AM 3 7:09 CDT AM CDT Thao Soria MD LAB BLOOD ORDERABLES Performing Organization Address City/[facility]/ZIP Code Phon e Number [facility] Unless otherwise noted, [address] all lab tests performed by: Division of Pathology and Laboratory Medicine [address] [place] (ABNORMAL) Ferritin Level (02/07/2023 6:52 AM CDT) athologist Signature Ferritin Lvl 320 (H) 13 - 150 [facility] ng/mL [facility] Specimen Anatomical Collection Method Collection Time Receive d Time (Source) Location / / Volume Laterality Blood 02/07/2023 6:52 AM 3 7:07 CDT AM CDT Thao Soria MD LAB BLOOD ORDERABLES Performing Organization Address City/[facility] Phon e Number [facility] Unless otherwise noted, [address] all lab tests performed by: Division of Pathology and Laboratory Medicine [address] [place] (ABNORMAL) Lipid Panel (02/07/2023 6:52 AM CDT) athologist Signature Chol 137 <=199 mg/dL [facility] Comment: ATP III Classification of Total Choleste rol Primary Target of Therapy (in mg/dL): <200 Desirable 200-239 Borderline high >=240 High Trig 184 (H) <=149 mg/dL [facility] Comment: ATP III Classification of Serum Triglyce rides Primary Target of Therapy (in mg/dL): <150 Normal 150-199 Borderline high 200-499 High >=500 Very high Non-fasting triglycerides >200 mg/dL may be followed up with a fasting Lipid Panel. Calculated LDL-C may be falsely decreased when non-fasting triglycerides >200 mg/dL. HDL 27 (L) >=40 mg/dL [facility] LDL 73 <=100 mg/dL [facility] Comment: ATP III Classification of LDL Cholestero l Primary Target of Therapy (in mg/dL): <100 Optimal 100-129 Near optimal/above optimal 130-159 Borderline high 160-189 High >=190 Very high VLDL 37 mg/dL [facility] Specimen Anatomical Collection Method Collection Time Receive d Time (Source) Location / / Volume Laterality Blood 02/07/2023 6:52 AM 7:07 CDT AM CDT Thao Soria MD LAB BLOOD ORDERABLES Performing Organization Address City/State/ZIP Code Phon e Number [facility] Unless otherwise noted, [place] [address] [place] all lab tests performed by: Division of Pathology and Laboratory Medicine [facility] [place] Clostridium Difficile DNA Path Review (02/07/2023 5:18 AM CDT) Component Value Ref Test Analysis Performed At Patholo gist Range Method Time Signature C diff DNA ID Reviewed and Electronically signed by Pathologist: ND MD PATRICIA CHAVEZ MD #[id number] [facility] Comment: C. difficile Toxin DNA (Primary [...] collected for repeat testing. MD Suzie BARRON [id number] Dictated by: MD Suzie BARRON [id number] Dictated Date/Time: 02.07.2023 16:35 PM CDT Transcribed Date/Time: 02.07.2023 16:35 PM CDT Electronically Signed By: MD Suzie MARSHALL [id number] on 02.07.2023 16:35 PM Specimen Anatomical Collection Method Collection Time Receive d Time (Source) Location / / Volume Laterality Stool 02/07/2023 5:18 AM 3 8:07 CDT AM CDT Thao Soria MD MICROBIOLOGY - GENERAL ORDER GODWIN Performing Organization Address City/[facility]/ZIP Code Phon e Number ND [place] [facility] Unless otherwise noted, [address] all lab tests performed by: Division of Pathology and Laboratory Medicine [address] Clostridium Difficile DNA Assay (02/07/2023 5:18 AM CDT) Patholo gist Method Time Signature C difficile DNA Negative Negative ND [place] [facility] [place] C difficle Toxin Test Not Negative CARLA GRIFFIN EIA Performed [facility] C difficile C. difficile CARLA GRIFFIN Interpretation DNA KULWANT [facility] CANCER was negative CENTER making C. difficile infection highly unlikely in this patient. EIA not performed. Specimen Anatomical Collection Method Collection Time Receive d Time (Source) Location / / Volume Laterality Stool 02/07/2023 5:18 AM 3 6:14 CDT AM CDT Thao Soria MD MICROBIOLOGY - GENERAL ORDER GODWIN Performing Organization Address City/State/ZIP Code Phon e Number ND [place] [facility] Unless otherwise noted, [address] all lab tests performed by: Division of Pathology and Laboratory Medicine [address] Gastrointestinal Multiplex Panel (02/07/2023 5:16 AM CDT) Component Value Ref Range Test Analysis Performed Pathologis t Method Time At Signature Campylobacter Not Detected Not CARLA GRIFFIN Detected [facility] C difficile DNA (GI Refer to CARLA GRIFFIN Multi Panel) separate C. KULWANT difficile DNA CANCER Assay for CENTER results Plesiomonas Not Detected Not CARLA GRIFFIN shigelloides Detected [facility] Salmonella Not Detected Not [facility] MD Detected [facility] Vibrio Not Detected Not [facility] MD Detected [facility] Vibrio cholerae Not Detected Not [facility] MD Detected [facility] Yersinia Not Detected Not [facility] MD enterocolitica Detected [facility] Enteroaggregative E. Not Detected Not [facility] MD coli (EAEC) Detected [facility] Enteropathogenic E. Not Detected Not [place] coli (EPEC) Detected [facility] Enterotoxigenic E. Not Detected Not [place] coli (ETEC) Detected [facility] Shiga-like Not Detected Not [place] MD toxin-producing E. Detected [place] col (STEC) [facility] E. coli O157 Not Not [facility] Applicable Detected [facility] Shigella/Enteroinvas Not Detected Not [facility] rosales E. coli (EIEC) Detected [facility] Cryptosporidium Not Detected Not [facility] MD Detected [facility] Cyclospora Not Detected Not [facility] cayetanensis Detected [facility] Entamoeba Not Detected Not [facility] histolytica Detected [facility] Giardia lamblia Not Detected Not [facility] MD Detected [facility] Adenovirus F 40/41 Not Detected Not [facility] MD Detected [facility] Astrovirus Not Detected Not [facility] MD Detected [facility] Norovirus GI/GII Not Detected Not [facility] MD Detected [facility] Rotavirus A Not Detected Not [facility] MD Detected [facility] Sapovirus (I, II, IV Not Detected Not ND MD and V) Detected [facility] Specimen Anatomical Collection Method Collection Time Receive d Time (Source) Location / / Volume Laterality Stool 02/07/2023 5:16 AM 6:13 CDT AM CDT Thao Amelia Estella GRIFFIN MICROBIOLOGY - GENERAL ORDER GODWIN Performing Organization Address City/State/ZIP Code Phon e Number [facility] Unless otherwise noted, [place] [address] [place] all lab tests performed by: Division of Pathology and Laboratory Medicine [address] [place] [address] Gastrointestinal Multiplex Panel Path Review (02/07/2023 5:16 AM CDT) [facility] gist Method Time Signature GIMP ID Reviewed and Electronically signed by Pathologist: CARLA CHAVEZ MD #[id number] [facility] Comment: Performed by real-time PCR methodology. [...] co nsidered presumptive. Clinical correlation is recommended. MD Suzie BARRON [id number] Dictated by: MD Suzie BARRON [id number] Dictated Date/Time: 02.07.2023 16:40 PM CDT Transcribed Date/Time: 02.07.2023 16:40 PM CDT Electronically Signed By: MD Suzie MARSHALL [id number] on 02.07.2023 16:40 PM Specimen Anatomical Collection Method Collection Time Receive d Time (Source) Location / / Volume Laterality Stool 02/07/2023 5:16 AM 6:13 CDT AM CDT Thao Soria MD LAB BLOOD ORDERABLES Performing Organization Address City/State/ZIP Code Phon e Number [facility] Unless otherwise noted, [address] all lab tests performed by: Division of Pathology and Laboratory Medicine [facility]5 [facility] EKG, 12-Lead (Portable) (02/07/2023)Only the most recent of2 resultswithin the time period is included. Specimen (Source) Anatomical Location Collection Method / Collectio n Time Received Time / Laterality Volume Narrative This result has an attachment that is no t available. Romana Guy MD ECG ORDERABLES Performing Organization Address City/State/ZIP Code Phon e Number DARI IECG NT-Pro BNP (In-House) (02/06/2023 3:05 AM CDT)Only the most recent of2 results within the time period is included. P athologist Signature NT ProBNP 83 <=125 pg/mL [facility] Specimen Anatomical Collection Method Collection Time Receive d Time (Source) Location / / Volume Laterality Blood 02/06/2023 3:05 AM 3:20 CDT AM CDT Cathie Meneses CONFIGURATION MANAGER,AGAJHONYP LAB BLOOD ORDERABLES Performing Organization Address [facility] Phon e Number [facility] Unless otherwise noted, [address] all lab tests performed by: Division of Pathology and Laboratory Medicine [facility]5 [address] CRP (02/06/2023 3:05 AM CDT)Only the most recent of3 resultswithin the time period is included. athologist [facility] CRP 65.62 mg/L [facility] Comment: Reference ranges for HS CRP [...] / Volume Laterality Blood 02/06/2023 3:05 AM 3:20 CDT AM CDT Cathie Rollins Gideon CONFIGURATION MANAGER,AGACNP LAB BLOOD ORDERABLES Performing Organization Address [facility] Phon e Number [facility] Unless otherwise noted, [address] all lab tests performed by: Division of Pathology and Laboratory Medicine [facility] [address] Troponin T (In-House) (02/06/2023 1:09 AM CDT)Only the most recent of2 results within the time period is included. athologist Signature Troponin T 10 <=19 ng/L [facility] Comment: < 19 ng/L Suggest retest [...] MD LAB BLOOD ORDERABLES Performing Organization Address City/[facility]/ZIP Code Phon e Number [facility] Unless otherwise noted, [address] all lab tests performed by: Division of Pathology and Laboratory Medicine [address] [place] (ABNORMAL) Urine Culture (02/06/2023 12:40 AM CDT)Only the most recent of3 resultswithin the time period is included. [facility] gist Method Time Signature Final Report 10 - 50,000 cfu/ml Normal site isabel present. ND Generally of low significance. KULWANT Correlate with clinical data and culture history. CANCER CENTER (A) Specimen Anatomical Collection Method Collection Time Receive d Time (Source) Location / / Volume Laterality Urine 02/06/2023 12:40 02/06/2023 2:54 AM CDT AM CDT Irina Houston APRN MICROBIOLOGY - GENERAL ORDER GODWIN Performing Organization Address City/[facility]/ZIP [facility] Phon e Number [facility] Unless otherwise noted, [address] all lab tests performed by: Division of Pathology and Laboratory Medicine [address] [place] aPTT (02/05/2023 8:26 PM CDT)Only the most recent of5 resultswithin the time period is included. athologist Signature aPTT 28.5 22.8 - 34.2 [facility](s) CANCER CENTER Specimen Anatomical Collection Method Collection Time Receive d Time (Source) Location / / Volume Laterality Blood 02/05/2023 8:26 PM 3 8:29 CDT PM CDT Deneen Guevara MD LAB BLOOD ORDERABLES Performing Organization Address City/[facility]/ZIP [facility] Phon e Number [facility] Unless otherwise noted, [address] all lab tests performed by: Division of Pathology and Laboratory Medicine [address] [place] VB Lactate (02/05/2023 8:26 PM CDT)Only the most recent of4 resultswithin the time period is included. P athologist Signature V Lactate 1.2 0.5 - 1.6 [facility] mmol/L CANCER CENTER Specimen Anatomical Collection Method Collection Time Receive d Time (Source) Location / / Volume Laterality Blood 02/05/2023 8:26 PM 3 8:29 CDT PM CDT Deneen Guevara MD LAB BLOOD ORDERABLES Performing Organization Address City/[facility]/ZIP Code Phon e Number [facility] Unless otherwise noted, [address] all lab tests performed by: Division of Pathology and Laboratory Medicine [address] [place] [address] (ABNORMAL) Prothrombin Time with INR (02/05/2023 8:26 PM CDT)Only the most recent of5 resultswithin the time period is included. athologist [facility] PT 14.7 (H) 11.9 - 14.1 [facility](s) [facility] INR 1.16 (H) 0.89 - 1.10 [facility] Specimen Anatomical Collection Method Collection Time Receive d Time (Source) Location / / Volume Laterality Blood 02/05/2023 8:26 PM 3 8:29 CDT PM CDT Deneen Guevara MD LAB BLOOD ORDERABLES Performing Organization Address City/[facility] Phon e Number [facility] Unless otherwise noted, [address] all lab tests performed by: Division of Pathology and Laboratory Medicine [address] [place] [address] (ABNORMAL) D Dimer (02/05/2023 8:26 PM CDT) athologist [facility] D-Dimer 3.04 (H) 0.10 - 0.50 [facility] mcg/ml [facility] C[facility] Comment: The cut off value for exclusion of venou s thromboembolism is <0.51 mcg/mL FEUs (fibrinogen equival ent units). Specimen Anatomical Collection Method Collection Time Receive d Time (Source) Location / / Volume Laterality Blood 02/05/2023 8:26 PM 3 8:29 CDT PM CDT Deneen Guevara MD LAB BLOOD ORDERABLES Performing Organization Address City/[facility]/ZIP Code Phon e Number [facility] Unless otherwise noted, [address] all lab tests performed by: Division of Pathology and Laboratory Medicine [address] [facility] X-ray Abdomen AP (02/05/2023 6:59 PM [...] dations or lobar pneumonias.. Amanda Proctor MD [facility] DIAGNOSTIC IMAGING ORDER GODWIN COVID-19 (SARS-CoV-2)Asymptomatic-LT (02/05/2023 5:09 PM CDT)Only the most recent of4 resultswithin the time period is included. [facility] Method Time Signature COVID19 Not Detected Not Detected CARLA GRIFFIN (SARS-CoV-2) [facility] COVID19 SARS Inpatient CARLA GRIFFIN Indication Admission [facility] Covid 19 See Note CARLA GRIFFIN Comment [facility] Comment: The ruby SARS-CoV-2 nucleic acid [...] fact sheet for patients provided by the pipe production worker ([employer]) can be reviewed at: https://www.fda.gov/media/381935/treasure molina A fact sheet for Health Care providers is provided by the pipe production worker ([employer]) and can be reviewed at: https://www.fda.gov/media/212121/download Results must be interpreted within the c [...] This assay has been authorized by the [facility] for use only under Emergency Use Authorization (EUA) in laboratories that have been CLIA-certified to perform moderate-complexity and high-complexity tests. The Microbiology [facility] at [facility], CLIA Accreditation #[id number] a [facility] Accreditation #[id number], verified the performance characteristics of this assay. Internal controls are used to monitor all stages of the test process. Specimen (Source) Anatomical Collection Method Collection Time Re ceived Time Location / / Volume Laterality Nasopharyngeal Swab 02/05/2023 5:09 02/05 PM CDT 5:17 PM CDT Amanda Proctor MD MICROBIOLOGY - GENERAL ORDER GODWIN Performing Organization Address City/[facility]/ZIP Code Phon e Number [facility] Unless otherwise noted, [address] all lab tests performed by: Division of Pathology and Laboratory Medicine [address] [place] [address] Lipase (02/05/2023 3:30 PM CDT)Only the most recent of4 resultswithin the time period is included. athologist Signature Lipase Lvl 18 13 - 60 U/L [facility] Specimen Anatomical Collection Method Collection Time Receive d Time (Source) Location / / Volume Laterality Blood 02/05/2023 3:30 PM 3:39 CDT PM CDT Amanda Proctor MD LAB BLOOD ORDERABLES Performing Organization Address City/[facility] Phon e Number [facility] Unless otherwise noted, [address] all lab tests performed by: Division of Pathology and Laboratory Medicine [address] [place] [address] CKMB (02/05/2023 3:30 PM CDT) athologist Signature CK MB <2.0 <=5.3 ng/mL [facility] Specimen Anatomical Collection Method Collection Time Receive d Time (Source) Location / / Volume Laterality Blood 02/05/2023 3:30 PM 3 3:39 CDT PM CDT Amanda Proctor MD LAB BLOOD ORDERABLES Performing Organization Address City/State/ZIP Code Phon e Number [facility] Unless otherwise noted, [address] all lab tests performed by: Division of Pathology and Laboratory Medicine [address] [place] [address] Amylase Level (02/05/2023 3:30 PM CDT)Only the most recent of2 resultswithin the time period is included. P athologist Signature Amylase Lvl 43 28 - 100 [facility] U/L [facility] CENTER Specimen Anatomical Collection Method Collection Time Receive d Time (Source) Location / / Volume Laterality Blood 02/05/2023 3:30 PM 3 3:39 CDT PM CDT Amanda Proctor MD LAB BLOOD ORDERABLES Performing Organization Address City/State/ZIP Code Phon e Number [facility] Unless otherwise noted, [address] all lab tests performed by: Division of Pathology and Laboratory Medicine [address] [place] [address] (ABNORMAL) Urinalysis with Microscopic (02/05/2023 12:39 AM CDT) Patholo gist Method Time Signature UA Color [place] (A) [place] UA Appear Cloudy (A) Clear [facility] UA Glucose 500 (A) NEG mg/dL [facility] UA Bili NEG NEG [facility] UA Ketones 40 (A) NEG mg/dL [facility] UA Spec Grav 1.021 1.003 - [facility] 1.035 [facility] UA Blood NEG NEG [facility] UA pH 6.0 5.0 - 9.0 [facility] UA Protein 20 (A) NEG mg/dL [facility] UA Urobilinogen NEG NEG [facility] UA Nitrite NEG NEG [facility] UA Leuk Est NEG NEG [facility] UA WBC NOT SEEN 0 - 2 [facility] [facility] Comment: Some reporting parameters within the Uri nalysis test have changed due to the implementation of new instrumentation in the [facility] [place], allowing greater sensitivity of measurement. Urinalysis results rep orted by the [facility] using existing instrumentation, as well as Urinalysis t esting performed manually or by backup methodology at the [facility] will remain relatively unchanged. New reporting parameters and units will not be reported for all campuses. UA RBC 13 (H) 0 - 2 /HPF [facility] UA Mucous NOT SEEN Not Seen-Trace /HPF ND MD [facility] UA Bacteria NOT SEEN NOT SEEN /HPF [facility] UA Squam Epi OCC None-Occasional /HPF [facility] Specimen Anatomical Collection Method Collection Time Receive d Time (Source) Location / / Volume Laterality Urine 02/05/2023 12:39 02/06/2023 AM CDT 12:42 AM CDT Irina Jama Celso APRN URINE ORDERABLES Performing Organization Address City/State/ZIP Code Phon e Number [facility] Unless otherwise noted, [place] [address] [place] all lab tests performed by: Division of Pathology and Laboratory Medicine [address] [place] [address] Tip Verification Central Vascular Access Device (01/29/2023 3:08 PM CDT) Narrative Justo Banuelos RN - 01/29/2023 3:08 PM CDT Justo Banuelos RN 01/29/2023 3:08 PM Central Vascular Access Device Tip Verif ication Performed by: Justo Banuelos RN Authorized by: Rashaun Wiley MD CVAD Properties Date device placed: 01/29/2023 Placed by: Justo Banuelos RN Device placement location: [facility] Catheter Type: PICC Catheter lumen: Double lumen [...] By: Rashaun Wiley MD Procedure Location: Inpatient Musical Instruments Assembler present: yes (Saeed GRIFFIN) 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 Informed consent obtained prior to procedure, the risks, benefits, and alternative discussed with patient/designated customer development representative. Pre-p rocedure the patient was alert. [...] placement. placement and tip verified using tip earth boring machine operator and place ment and tip verified by [...] athologist Signature Hgb 13.3 12.0 - 16.0 [facility] gm/dL [facility] [place] Specimen Anatomical Collection Method Collection Time Receive d Time (Source) Location / / Volume Laterality Blood 01/28/2023 8:24 AM 3 8:30 CDT AM CDT Mana Powers APRN LAB BLOOD ORDERABLES Performing Organization Address City/State/ZIP Code Phon e Number [facility] Unless otherwise noted, [address] all lab tests performed by: Division of Pathology and Laboratory Medicine [address] [place] Hematocrit (01/28/2023 8:24 AM CDT)Only the most recent of3 resultswithin the time period is included. athologist Signature Hct 40.6 37.0 - 47.0 [facility] Specimen Anatomical Collection Method Collection Time Receive d Time (Source) Location / / Volume Laterality Blood 01/28/2023 8:24 AM 3 8:30 CDT AM CDT Mana Powers APRN LAB BLOOD ORDERABLES Performing Organization Address City/State/ZIP Code Phon e Number [facility] Unless otherwise noted, [address] all lab tests performed by: Division of Pathology and Laboratory Medicine [address] [place] (ABNORMAL) Urinalysis Microscopic Exam (01/26/2023 10:45 PM CDT) P athologist Signature UA WBC 6 (H) 0 - 2 /HPF [facility] Comment: Some reporting parameters within the Uri nalysis test have changed due to the implementation of new instrumentation in the [facility] [place], allowing greater sensitivity of measurement. Urinalysis results rep orted by the [facility] using existing instrumentation, as well as Urinalysis t esting performed manually or by backup methodology at the [facility] will remain relatively unchanged. New reporting parameters and units will not be reported for all campuses. UA RBC <1 0 - 2 /HPF ND MD [facility] UA Mucous NOT SEEN Not Seen-Trace /HPF ND MD [facility] [place] UA Bacteria NOT SEEN NOT SEEN /HPF [facility] UA Squam Epi OCC None-Occasional /HPF [facility] Specimen Anatomical Collection Method Collection Time Receive d Time (Source) Location / / Volume Laterality Urine 01/26/2023 10:45 01/26/2023 PM CDT 10:49 PM CDT Amanda Proctor MD LAB BLOOD ORDERABLES Performing Organization Address City/State/ZIP Code Phon e Number [facility] Unless otherwise noted, [place] [address] [place] all lab tests performed by: Division of Pathology and Laboratory Medicine [address] (ABNORMAL) Urinalysis w/Microscopic if Indicated (01/26/2023 10:45 PM CDT)Only the most recent of2 resultswithin the time period is included. Analysis Performed At Patho logist Time Signature UA Color Straw Straw-[place] [facility] UA Appear Clear Clear [facility] UA Glucose 500 (A) NEG mg/dL [facility] UA Bili NEG NEG [facility] UA Ketones NEG NEG mg/dL [facility] UA Spec Grav 1.020 1.003 - [facility] 1.035 [facility] UA Blood NEG NEG [facility] UA pH 5.5 5.0 - 9.0 [facility] UA Protein 30 (A) NEG mg/dL [facility] UA Urobilinogen NEG NEG [facility] UA Nitrite NEG NEG [facility] UA Leuk Est NEG NEG [facility] Specimen Anatomical Collection Method Collection Time Receive d Time (Source) Location / / Volume Laterality Urine 01/26/2023 10:45 01/26/2023 PM CDT 10:49 PM CDT Amanda Proctor MD URINE ORDERABLES Performing Organization Address City/[facility]/ZIP Code Phon e Number [facility] Unless otherwise noted, [address] all lab tests performed by: Division of Pathology and Laboratory Medicine [address] [place] [address] (ABNORMAL) LDH (01/26/2023 2:44 PM CDT)Only the most recent of3 resultswithin the time period is included. P athologist Signature LDH 289 (H) 135 - 214 [facility] U/L [facility] Comment: Results greater than 1651 U/L [...] MD LAB BLOOD ORDERABLES Performing Organization Address City/[facility]/ZIP Code Phon e Number [facility] Unless otherwise noted, [address] all lab tests performed by: Division of Pathology and Laboratory Medicine [address] [place] [address] (ABNORMAL) Controlled Substance Monitoring Panel, Urine (01/20/2023 12:37 PM CDT) Analysis Performed At Patho logist Time Signature Urine 55.1 mg/dL ND Creatinine [facility] Urine Specific 1.014 [facility] [place] [facility] Urine Ph 6.2 [facility] Urine Oxidants Negative Cutoff: ND 200 mg/L [facility] Urine Comment Normal [facility] U Negative Cutoff: ND Barbiturates-Ma 200 ng/mL [facility] U Cocaine Negative Cutoff: ND Lvl-Luu 150 ng/mL [facility] Comment: This cocaine immunoassay targets benzoyl ecgonine the primary metabolite of cocaine. U THC-Luu See Footnote (A) Cutoff: 50 ng/mL [facility] Comment: RESULT: Presumptive Positive This immunoassay [...] testing. Codeine Not Detected Cutoff: 25 ng/mL ND MD [facility] Comment: Tylenol 3 Hnvkpwp-0-dgcf-glucuronide Not Detected Cutoff: 100 ng/mL [facility] Comment: Metabolite of codeine Morphine Not Detected Cutoff: 25 ng/mL ND MD [facility] Comment: Martha Mary, MS Contin; Also a minor metabolite (10%) of codeine and can be seen in low concentra tions (<2,000 ng/mL) with poppy seed ingestion. Suxfqvfu-9-bymx-glucuronide Not Detected Cutoff: 100 ng/mL [facility] Comment: Metabolite of morphine 6-monoacetylmorphine Not Detected Cutoff: 25 ng/mL [facility] Comment: Metabolite of heroin Hydrocodone Not Detected Cutoff: 25 ng/mL [facility] Comment: Lortab, Cecil, Vicodin; Also a very luci r metabolite of codeine and impurity (<1%) of oxycodone. Norhydrocodone Not Detected Cutoff: 25 ng/mL [facility] Comment: Metabolite of hydrocodone Dihydrocodeine Not Detected Cutoff: 25 ng/mL [facility] Comment: Metabolite of hydrocodone Hydromorphone Not Detected Cutoff: 25 ng/mL [facility] Comment: Clarissa, Alliealgo; Also a metabolite of h ydrocodone and a minor (<5%) metabolite of morphine. Suatcrtmshghl-9-hmam-glucuronide Not Detected Cutoff: 100 [facility] ng/mL [facility] Comment: Metabolite of hydromorphone Oxycodone Present (A) Cutoff: 25 ng/mL ND MD [facility] Comment: Endocet, Percocet, Oxycontin Noroxycodone Present (A) Cutoff: 25 ng/mL ND MD CECE KERR [facility] Comment: Metabolite of oxycodone Oxymorphone Not Detected Cutoff: 25 ng/mL ND MD [facility] Comment: Numorphan, Opana; Also a metabo lite of oxycodone. Uybykthwkwn-8-dgkl-glucuronide Not Detected Cutoff: 100 ng/mL [facility] Comment: Metabolite of oxymorphone and/o r naloxone (nornaloxone) Noroxymorphone Present (A) Cutoff: 25 ng/mL [facility] Comment: Metabolite of oxymorphone and/o r naloxone (nornaloxone) Fentanyl Not Detected Cutoff: 2 ng/mL ND MD [facility] Comment: Actiq, Duragesic, Fentora Norfentanyl Not Detected Cutoff: 2 ng/mL ND MD [facility] Comment: Metabolite of fentanyl Meperidine Not Detected Cutoff: 25 ng/mL ND [facility] Comment: Demerol Normeperidine Not Detected Cutoff: 25 ng/mL [facility] Comment: Metabolite of meperidine Naloxone Not Detected Cutoff: 25 ng/mL ND MD ALCALA JASMINE [facility] Comment: Narcan Swofooql-4-jcwu-glucuronide Not Detected Cutoff: 100 ng/mL [facility] Comment: Metabolite of naloxone U Methadone Not Detected Cutoff: 25 ng/mL ND MD CECE KERR [facility] Comment: Dolophine EDDP Not Detected Cutoff: 25 ng/mL ND MD [facility] JASMINE [facility] Comment: Metabolite of methadone Propoxyphene Not Detected Cutoff: 25 ng/mL ND MD Sourav ASHERJASMINE [facility] Comment: Darvon, Darvocet Norpropoxyphene Not Detected Cutoff: 25 ng/mL ND Julissa Lund [facility] Comment: Metabolite of propoxyphene Tramadol Not Detected Cutoff: 25 ng/mL ND MD [facility]CALA JASMINE [facility] Comment: Tradol, Ultram, Ultracet O-desmethyltramadol Not Detected Cutoff: 25 ng/mL ND [facility] Comment: Metabolite of tramadol Tapentadol Not Detected Cutoff: 25 ng/mL ND [facility] Comment: Nucynta Evflexenre-amwq-wxyhfkbfbug Not Detected Cutoff: 100 ng/mL [facility] Comment: Metabolite of tapentadol Buprenorphine Not Detected Cutoff: 5 ng/mL ND MD [facility] Comment: Buprenex, Suboxone Norbuprenorphine Not Detected Cutoff: 5 ng/mL [facility] Comment: Metabolite of buprenorphine Norbuprenorphine Glucuronide Not Detected Cutoff: 20 ng/mL [facility] Comment: Metabolite of buprenorphine Opioid Interpretation See Footnote [facility] Comment: Test detected the presence of oxycodone and one of its metabolites (noroxycodone) along with no roxymorphone (metabolite of oxymorphone). Suspect use of oxymorphone and/or oxycodone within the past three d ays. Trace amounts of oxycodone can be found as an impurity in oxymorphone. ADDITIONAL INFORMATIO N This test was developed and its performa nce characteristics determined by [facility] in a manner co nsistent with CLIA requirements. This test has not been sisi ared or approved by the U.S. Food and Drug Administration. Alprazolam Urine Present (A) Cutoff: 10 ng/mL [facility] Comment: Xanax Alpha-Hydroxyalprazolam Urine Present (A) Cutoff: 10 ng/mL [facility] Comment: Metabolite of Alprazolam Alpha-Hydroxyalprazolam Present (A) Cutoff: 50 ng/mL [facility] Glucuronide Urine [facility]ENT[facility] Comment: Metabolite of Alprazolam Chlordiazepoxide Urine Not Detected Cutoff: 10 ng/mL [facility] Comment: Librium Colbazam Urine Not Detected Cutoff: 10 ng/mL [facility] Comment: Frisium, Onfi N-Desmethylclobazam Urine Not Detected Cutoff: 200 ng/mL [facility] Comment: Metabolite of Clobazam Clonazepam Urine Not Detected Cutoff: 10 ng/mL [facility] Comment: Klonopin, Rivotril 7-Aminoclonazepam Urine Not Detected Cutoff: 10 ng/mL [facility] Comment: Metabolite of Clonazepam Diazepam Urine Not Detected Cutoff: 10 ng/mL [facility] Comment: Valium Nordiazepam Urine Not Detected Cutoff: 10 ng/mL [facility] Comment: Metabolite of Chlordiazepoxide, Diazepam, or Prazepam. Flunitrazepam Urine Not Detected Cutoff: 10 ng/mL [facility] Comment: Rohypnol 7-Aminoflunitrazepam Urine Not Detected Cutoff: 10 ng/mL [facility] Comment: Metabolite of Flunitrazepam FlUrinerazepam Urine Not Detected Cutoff: 10 ng/mL [facility] Comment: Dalmane 2-Hydroxy Ethyl Flurazepam Not Detected Cutoff: 10 ng/mL [facility] Comment: Metabolite of Flurazepam Lorazepam Urine Not Detected Cutoff: 10 ng/mL [facility] Comment: Ativan Lorazepam Glucuronide Not Detected Cutoff: 50 ng/mL [facility] Comment: Metabolite of Lorazepam Midazolam Urine Not Detected Cutoff: 10 ng/mL [facility] Comment: Versed Alpha-Hydroxy Midazolam Not Detected Cutoff: 10 ng/mL [facility] Comment: Metabolite of Midazolam Oxazepam Urine Not Detected Cutoff: 10 ng/mL [facility] Comment: Serax; Also a metabolite of Chlordiazepo xide, Diazepam, or Temazepam. Oxazepam Glucuronide Urine Not Detected Cutoff: 50 ng/mL [facility] Comment: Metabolite of Oxazepam Prazepam Urine Not Detected Cutoff: 10 ng/mL [facility] Comment: Centrax Temazepam Urine Not Detected Cutoff: 10 ng/mL [facility] Comment: Restoril; Also a metabolite of Diazepam. Temazepam Glucuronide Not Detected Cutoff: 50 ng/mL [facility] Comment: Metabolite of Temazepam Triazolam Urine Not Detected Cutoff: 10 ng/mL [facility] Comment: Halcion Alpha-Hydroxy Triazolam Not Detected Cutoff: 10 ng/mL [facility] Comment: Metabolite of Triazolam Zolpidem Urine Not Detected Cutoff: 10 ng/mL [facility] Comment: Ambien Zolpidem Hgdoq-2-Zjiwzgwfnu Present (A) Cutoff: 10 ng/mL [facility] Acid Urine [facility] Comment: Metabolite of Zolpidem Benzodiazepine Interp Urine See Footnote [facility] Comment: Test detected the presence of alprazolam and two of its metabolites (alpha-hydroxyalprazolam and alpha-hydroxyalprazolam glucuronide). Agarwal spect use of alprazolam within the past three days. Test detected the presence of zolpidem p julph-7-nduciritvd acid (metabolite of zolpidem) only. Susp ect use of zolpidem within the past four days. ADDITIONAL INFORMATIO N This test was developed and its performa nce characteristics determined by [facility] in a manner co nsistent with CLIA requirements. This test has not been sisi ared or approved by the U.S. Food and Drug Administration. Methamphetamine Not Detected Cutoff: 100 ng/mL [facility] Comment: Desoxyn Amphetamine Not Detected Cutoff: 100 ng/mL [facility] Comment: Dyanavel XR, Adzenys ER, Adderall, Vyvan se; Also a metabolite of methamphetamine 3,4-Methylenedioxymethamphetamine Not Detected Cutoff: 100 [facility] (MDMA) ng/mL [facility] 3,1-Usikbmmzgtbdfn-C-Ethylamphetamine Not Detected Cutoff: 100 [facility] (MDEA) ng/mL [facility] 3,4-Methylenedioxyamphetamine (MDA) Not Detected Cutoff: 100 [facility] ng/mL [facility] Comment: Also a metabolite of MDMA and/o r MDEA Ephedrine Not Detected Cutoff: 100 ng/mL [facility] Pseudoephedrine Present (A) Cutoff: 100 ng/mL [facility] Comment: Sudafed Phentermine Not Detected Cutoff: 100 ng/mL [facility] Comment: Adipex-P, Lomaira, Qsymia Phencyclidine (PCP) Not Detected Cutoff: 20 ng/mL [facility] Methylphenidate Not Detected Cutoff: 20 ng/mL [facility] Comment: Ritalin, Concerta Ritalinic acid Not Detected Cutoff: 100 ng/mL [facility] Comment: Metabolite of methylphenidate Stimulant Interpretation See Footnote [facility] Comment: Test detected the presence of pseudoephe drine. Suspect use of pseudoephedrine within the past three days. ADDITIONAL INFORMATIO N This test was developed and its performa nce characteristics determined by [facility] in a manner co nsistent with CLIA requirements. This test has not been sisi ared or approved by the U.S. Food and Drug Administration. Test Performed by: [facility] [address] [place] [address] Cash Sales Audit Clerk: Yonathan Guzman M.D. Ph. D.; CLIA# [id number] Patients Current Medications NOT ANSWERED [facility] Comment: ADDITIONAL INFORMATIO N Accuracy and completeness of declared me dications on reports solely dependent on information submitted by client. Specimen Anatomical Collection Method Collection Time Receive d Time (Source) Location / / Volume Laterality Urine 01/20/2023 12:37 01/20/2023 8:31 PM CDT PM CDT Rogerio Kramer MD URINE ORDERABLES Performing Organization Address City/State/ZIP Code Phon e Number [facility] Unless otherwise noted, [place] [address] [place] all lab tests performed by: Division of Pathology and Laboratory Medicine [address] (ABNORMAL) POC Urine Drug Screen (01/20/2023 12:37 PM CDT) athologist Signature POC U Amp Negative Negative [facility] Comment: Drug Abuse Cutoff Concentration: Cutoff: 1000 ng/mL POC U Barbit Negative Negative [facility] [place] Comment: Drug Abuse Cutoff Concentration: 300 ng/mL POC U Benzo Positive (A) Negative [facility] Comment: Drug Abuse Cutoff Concentration: Cutoff: 300 ng/ mL POC U Cocaine Negative Negative [facility] [place] Comment: Drug Abuse Cutoff Concentration: Cutoff: 300 ng/mL POC U THC Positive (A) Negative [facility] Comment: Drug Abuse Cutoff Concentration: Cutoff: 50 ng/mL POC U Methd Negative Negative [facility] Comment: Drug Abuse Cutoff Concentration: Cutoff: 300 ng/mL POC U Mampht Negative Negative [facility] Comment: Drug Abuse Cutoff Concentration: Cutoff: 1000 ng/mL POC U Opiate Negative Negative [facility] Comment: Drug Abuse Cutoff Concentration: Cutoff: 2000 ng/mL POC U Oxycod Positive (A) Negative [facility] Comment: Drug Abuse Cutoff Concentration: Cutoff: 100 ng/mL Due to the assay cross reactivity betwee n Oxycodone and Opiates, and lower sensitivity compared to GC-MS method, the test results may be falsely positive or falsely negative. Confirmation with concurrent GC-MS results is recommended. POC U PCP Negative Negative [facility] Comment: Drug Abuse Cutoff Concentration: Cutoff: 25 ng/mL POC U TCA Negative Negative [facility] Comment: Drug Abuse Cutoff Concentration: Cutoff: 1000 ng/mL POC U PPX Negative Negative [facility] Comment: Drug Abuse Cutoff Concentration: Cutoff: 300 [...] 1:10 Catch PM CDT PM CDT Narrative [facility] - 1:30 PM CDT The POC Urine Qualitative Drug Screen Pa augusto report is intended for use in clinical monitoring or management of patients. Un confirmed screening results must not be used for non-medical purposes such as legal o r employment-related testing. Rogerio Kramer MD POINT OF CARE TEST ORDERA JOANNE Performing Organization Address City/State/ZIP Code Phon e Number [facility] Unless otherwise noted, [place] [address] [place] all lab tests performed by: Division of Pathology and Laboratory Medicine [address] [facility] Tetrahydocannabinol (THC), Quantitative, Urine (01/20/2023 12:37 PM CDT) athologist Signature U THC n/a ND GC/MS-[facility] U THC see note CARLA GRIFFIN Interp-[facility] Comment: Carboxy-THC Confirmation, U: Carboxy-THC Interpretation: Positive ADDITIONAL INFORMATION: This report is intended for use in clini mari monitoring and management of patients. It is not intend ed for use in employment-related testing. Delta-8 Carboxy-Tetrahydrocannabinol by LC-MS/MS: 672 ng/mL Reference Value: Cutoff: 5 Delta-9 Carboxy-Tetrahydrocannabinol by LC-MS/MS: 42 ng/mL Reference Value: Cutoff: 5 PERFORMING LAB: [facility] [address] [place] [id number] Yonathan Guzman M.D. Ph.D. [id number] U THC [facility] n/a [facility] Specimen Anatomical Collection Method Collection Time Receive d Time (Source) Location / / Volume Laterality Urine, Clean 01/20/2023 12:37 01/27/2023 Catch PM CDT 11:34 AM CDT Rogerio Kramer MD URINE ORDERABLES Performing Organization Address City/State/ZIP Code Phon e Number [facility] Unless otherwise noted, [place] [address] CENTER all lab tests performed by: Division of Pathology and Laboratory Medicine [facility] X-ray Knee 1 Or 2 Views [...] MRI. I personally reviewed these image(s) deborah machado [...] MRI. I personally reviewed these image(s) deborah carter with the resident's/fellow's interpretations, certify that if a procedure was performed I was physically present, and agree with the final report. Nguyen Barcenas MD IMG CT ORDERABLES Ny Visual Field, Intermediate - OU - Both Eyes (12/29/2022 10:51 AM DOUGH MIXER OPERATOR) Specimen (Source) Anatomical Location Collection Method / Collectio n Time Received Time / Laterality Volume Narrative Suzanne Mcgrath MD - 12/30/2022 11:50 AM DOUGH MIXER OPERATOR Right Eye Threshold was 30-2. The AVF [...] OU - Both Eyes (12/29/2022 10:43 AM DOUGH MIXER OPERATOR) Specimen (Source) Anatomical Location Collection Method / Collectio n Time Received Time / Laterality Volume Narrative Suzanne Mcgrath MD - 12/30/2022 11:44 AM DOUGH MIXER OPERATOR Normal average thickness of peripapillary retinal nerve fiber layer . With borderline thinning temporally righ t eye Suzanne Mcgrath MD OPHTHALMOLOGY IMG ORDERABLES OCT, Retina - OU - Both Eyes (12/29/2022 10:43 AM DOUGH MIXER OPERATOR) Specimen (Source) Anatomical Location Collection Method / Collectio n Time Received Time / Laterality Volume Suzanne Hill MD - 12/30/2022 11:44 AM DOUGH MIXER OPERATOR This result has an attachment that is no t available. Normal macular volume. No sign of serou s retinopathy Suzanne Mcgrath MD OPHTHALMOLOGY IMG ORDERABLES COVID-19 (SARS-CoV-2) PCR-Asymptomatic (12/23/2022 12:01 PM DOUGH MIXER OPERATOR) [facility] Method Time Signature COVID19 (SARS Not Detected Not Detected [facility] CoV-2) [facility] Comment: This test is a qualitative reverse-trans criptase polymerase chain reaction (RT- PCR) developed for the [employer] system and intended for qualitative detection of SARS CoV-2 RNA in nasopharyngeal a nd oropharyngeal swab specimens collecte d from any individuals, including those suspected o f COVID-19 by their healthcare provider, and those without symptoms or other reasons to suspect COVID-19. A fact sheet for patients provided by the pipe production worker ( [employer]) can be rev iewed at: https://www.fda.gov/media/811553/downloa d. A fact sheet for Health Care providers is provided by the pipe production worker ([employer]) and can be reviewed at: https://www.fda.gov/media/105246/download Results must be interpreted within the c [...] were verified by the Microbiology Laboratory at [facility], CLIA Accreditation #: [id number] and CAP Accreditation #: [id number]. COVID19 SARS Source UPPER SHAPER Swab ND MD [facility] COVID19 SARS Indication Pre-Radiation Therapy [facility] Specimen (Source) Anatomical Collection Method Collection Time Re ceived Time Location / / Volume Laterality Nasopharyngeal Swab 12/23/2022 12:01 0212/2022 PM DOUGH MIXER OPERATOR 3:41 PM DOUGH MIXER OPERATOR Winter Luu MD MICROBIOLOGY - GENERAL ORDER GODWIN Performing Organization Address City/State/ZIP Code Phon e Number [facility] Unless otherwise noted, [address] all lab tests performed by: Division of Pathology and Laboratory Medicine [address] [place] [address] OCT, Optic Nerve - OU - Both Eyes (12/15/2022 10:37 AM DOUGH MIXER OPERATOR) Specimen (Source) Anatomical Location Collection Method / Collectio n Time Received Time / Laterality Volume Sheridan Angulo MD - 12/17/2022 12:25 PM DOUGH MIXER OPERATOR Right Eye Average nerve fiber layer thickness cons istent with normal Left Eye Average nerve fiber layer thickness cons istent with normal Sheridan Alvarez MD OPHTHALMOLOGY IMG ORDERABLES OCT, Retina - OU - Both Eyes (12/15/2022 10:37 AM DOUGH MIXER OPERATOR) Specimen (Source) Anatomical Location Collection Method / Collectio n Time Received Time / Laterality Volume Sheridan Angulo MD - 12/17/2022 12:25 PM DOUGH MIXER OPERATOR Right Eye This is the baseline exam. Findings incl ude normal observations. Left Eye This is the baseline exam. Findings incl ude normal observations. Sheridan Alvarez MD OPHTHALMOLOGY IMG ORDERABLES Fundus Photos - OU - Both Eyes (12/15/2022 10:37 AM DOUGH MIXER OPERATOR) Specimen (Source) Anatomical Location Collection Method / Collectio n Time Received Time / Laterality Volume Narrative Sheridan Alvarez MD - 12/17/2022 12:25 PM DOUGH MIXER OPERATOR Right Eye Basline Exam. Sheridan Alvarez MD OPHTHALMOLOGY IMG ORDERABLES 3D Dental Imaging (iCAT) (12/15/2022 8:42 AM DOUGH MIXER OPERATOR) Specimen (Source) Anatomical Location Collection Method / Collectio n Time Received Time / Laterality Volume Narrative Systemgenerated, Documentation - 023 8:42 AM DOUGH MIXER OPERATOR This procedure requires no interpretatio n from the radiologist. Benito Saini DDS IMG NON DI ORDERABLES FL Modified Barium Swallow w Speech (12/14/2022 2:37 PM DOUGH MIXER OPERATOR) Anatomical Region Laterality Modality Neck Radio Fluoroscopy Specimen (Source) Anatomical Collection Method Collection Time Re ceived Time Location / / Volume Laterality 12/14/2022 2:58 PM DOUGH MIXER OPERATOR Impressions 12/14/2022 3:08 PM DOUGH MIXER OPERATOR 1. Flash penetration without aspiration seen with thin liquid barium. 2. Please refer to the separately dictat ed speech pathology report for further details and recommendations. 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 There was no pharyngeal residue. Pharyngeal [...] liquid barium. 2. [facility] dictat ed speech pathology report for further details and recommendations. Travis Lopez MD IMG FLUOROSCOPY ORDERABLES (ABNORMAL) ABG Venous (12/11/2022 6:21 PM DOUGH MIXER OPERATOR) athologist Signature pH Raghavendra 7.40 7.32 - 7.43 [facility] Comment: Results are corrected for a bod y temp of 37C pCO2 Raghavendra 47.6 41.0 - 51.0 mmHg ND MD YADAV [facility] pO2 Raghavendra 52 mmHg [facility] HCO3 Raghavendra 29 (H) 21 - 28 mmol/L [facility] Base Excess Raghavendra 3 -2 - 3 mmol/L ND MD [facility] O2 Sat Raghavendra 87 % [facility] Specimen Anatomical Collection Method Collection Time Receive d Time (Source) Location / / Volume Laterality Blood 12/11/2022 6:21 PM 3 6:29 DOUGH MIXER OPERATOR PM DOUGH MIXER OPERATOR Travis Lopez MD LAB BLOOD ORDERABLES Performing Organization Address City/State/ZIP Code Phon e Number [facility] Unless otherwise noted, [place] [address] [place] all lab tests performed by: Division of Pathology and Laboratory Medicine [facility] [place] Ketone Bodies Qualitative (12/11/2022 5:19 PM DOUGH MIXER OPERATOR) athologist Signature UA Ketones NEG NEG mg/dL [facility] Specimen Anatomical Collection Method Collection Time Receive d Time (Source) Location / / Volume Laterality Urine 12/11/2022 5:19 PM 3 5:24 DOUGH MIXER OPERATOR PM DOUGH MIXER OPERATOR Waleska P Salinas CONFIGURATION MANAGER URINE ORDERABLES Performing Organization Address City/State/ZIP Code Phon e Number [facility] Unless otherwise noted, [place] [address] CENTER all lab tests performed by: Division of Pathology and Laboratory Medicine [facility]5 [facility] POC Critical (12/11/2022 3:34 PM DOUGH MIXER OPERATOR)Only the most recent of2 resultswithin the time period is included. athologist Signature POC Critical See Note POC [facility] Comment Comment: Test performer notified Orderin g Licensed Provider and /or designee of POC Glucose Screen critical Results.. Specimen Anatomical Collection Method Collection Time Receive d Time (Source) Location / / Volume Laterality Blood 12/11/2022 3:34 PM 3:34 DOUGH MIXER OPERATOR PM DOUGH MIXER OPERATOR Travis Lopez MD POINT OF CARE TEST ORDERABLE S Performing Organization Address City/[facility]/ZIP Code Phon e Number POC [facility] Unless otherwise noted, [place] [address] lab tests performed by: Division of Pathology and Laboratory Medicine [facility] (ABNORMAL) POC VBG+Lac (12/09/2022 9:36 PM DOUGH MIXER OPERATOR) athologist Signature POC VB pH 7.46 (H) [...] Clean Dev Yes POC [facility] Performing Lab [facility] POC TELCO R Comment: [facility] Clinical Lab, [address] [place] [address], [place] [address]; Lab Direct or: Chula Jacob MD; Waived Point of Care Testing - Gabrielle Mueller MD Specimen Anatomical Collection Method Collection Time Receive d Time (Source) Location / / Volume Laterality Blood 12/09/2022 9:36 PM 3 9:36 DOUGH MIXER OPERATOR PM DOUGH MIXER OPERATOR Roberto Carlos Walsh MD POCT ORDERABLES - DEVICE Performing Organization Address City/State/ZIP Code Phon e Number POC [facility] Unless otherwise noted, [place] [address] lab tests performed by: Division of Pathology and Laboratory Medicine [address] [place] [address] Ammonia Level (12/09/2022 6:01 PM DOUGH MIXER OPERATOR) athologist Signature Ammonia 18 11 - 51 [facility] Specimen Anatomical Collection Method Collection Time Receive d Time (Source) Location / / Volume Laterality Blood 12/09/2022 6:01 PM 3 6:15 DOUGH MIXER OPERATOR PM DOUGH MIXER OPERATOR Tammy Mike MD LAB BLOOD ORDERABLES Performing Organization Address City/[facility]/ZIP [facility] Phon e Number [facility] Unless otherwise noted, [address] all lab tests performed by: Division of Pathology and Laboratory Medicine [address] [place], [place] [address] MISSY GRIFFIN MDA CHRISTINE: Mutation Analysis Precision Panel Report (12/04/2022 10:56 AM DOUGH MIXER OPERATOR) Specimen (Source) Anatomical Collection Method Collection Time Re ceived Time Location / / Volume Laterality 12/04/2022 10:56 AM DOUGH MIXER OPERATOR Narrative This result has an attachment that is no t available. Lorena [facility] (MISSY GRIFFIN) Solid Tumor Genomic Assay Fusions 2018 Interpretation and Report (12/04/2022 10:56 AM DOUGH MIXER OPERATOR) Specimen Anatomical Collection Method Collection Time Receive d Time (Source) Location / / Volume Laterality 12/04/2022 10:56 12/04/2022 AM DOUGH MIXER OPERATOR 10:56 AM DOUGH MIXER OPERATOR Narrative This result has an attachment that is no t available. Lorena Hdez APRN, MDA [facility] (MISSY GRIFFIN) Molecular Diagnostics Specimen Collection -FFPE (12/04/2022 10:56 AM DOUGH MIXER OPERATOR) Patholo gist Method Time Signature Molecular Yes ND MD Longo [place] (Received) [facility] Jael Bermudez Link [id number] [facility] Block Number JORGE ND (Qualitative) [facility] Outside [id number] ND MD Matamoros [place] (Qualitative) [facility] Specimen Anatomical Collection Method Collection Time Receive d Time (Source) Location / / Volume Laterality FFPE 12/04/2022 10:56 12/04/2022 AM DOUGH MIXER OPERATOR 10:56 AM DOUGH MIXER OPERATOR Lorena Hdez APRN TAO LOUIS MD NONBLOOD COLLECTIO NS Performing Organization Address City/State/ZIP Code Phon e Number [facility] Unless otherwise noted, [place] [address] [place] all lab tests performed by: Division of Pathology and Laboratory Medicine [address] [place] [address] MRI Skull Base with and without Contrast (11/30/2022 11:12 AM DOUGH MIXER OPERATOR) Anatomical Region Laterality Modality Head Magnetic Resonance Specimen (Source) Anatomical Collection Method Collection Time Re ceived Time Location / / Volume Laterality 12/01/2022 9:21 AM DOUGH MIXER OPERATOR Impressions 12/01/2022 1:06 PM DOUGH MIXER OPERATOR 1. 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 2. Tumor likely involves the lesser wi ng of the left sphenoid bone. 3. No lateral retropharyngeal or visua lized cervical adenopathy. Narrative 12/01/2022 1:06 PM DOUGH MIXER OPERATOR FULL RESULT: Examination: MRI SKULL BASE WITH [...] or visuali zed cervical adenopathy. Lorena Garza Lemuel ESCALANTE IMG MRI ORDERABLES PETCT Contrast Enhanced Initial Treatment Strategy (11/27/2022 3:57 PM DOUGH MIXER OPERATOR) Anatomical Region Laterality Modality Whole Body Positron Emission To mography (PET) Specimen (Source) Anatomical Collection Method Collection Time Re ceived Time Location / / Volume Laterality 11/30/2022 8:31 AM DOUGH MIXER OPERATOR Impressions 11/30/2022 8:38 AM DOUGH MIXER OPERATOR Subtle activity associated with subtle asymmetric fullness in posterior left nasal pharynx is compatible with reported primary tumor. No suspicious activity to suggest regional jeremiah or distant metastases. Narrative 11/30/2022 8:38 AM DOUGH MIXER OPERATOR FULL RESULT: Examination: Contrast-Enhanced FDG PET /CT, [...] MD YUN Blood Control (11/26/2022 1:07 PM DOUGH MIXER OPERATOR) athologist Signature Molecular Yes [facility] (Received) Specimen Anatomical Collection Method Collection Time Receive d Time (Source) Location / / Volume Laterality Blood 11/26/2022 1:07 PM 3 9:13 DOUGH MIXER OPERATOR AM DOUGH MIXER OPERATOR Lorena Hdez APRN MDA IP HP MOLECULAR DIAG IF ORDERABLES Performing Organization Address City/State/ZIP Code Phon e Number [facility] Unless otherwise noted, [place] [address] CENTER all lab tests performed by: Division of Pathology and Laboratory Medicine [place]5 Michelle Hodges (ABNORMAL) Vitamin D 25OH (11/26/2022 1:07 PM DOUGH MIXER OPERATOR) athologist Signature Vitamin D 25 OH 21 (L) 30 - 100 [facility] ng/mL Comment: Reference Range: Deficiency: <10 ng/mL Insufficiency: 10-29 ng/mL Sufficiency: 30-100 ng/mL Potential toxicity: >100 ng/mL Testing performed at [facility], [address] [place] [address] Specimen Anatomical Collection Method Collection Time Receive d Time (Source) Location / / Volume Laterality Blood 11/26/2022 1:07 PM 3 1:19 DOUGH MIXER OPERATOR PM DOUGH MIXER OPERATOR Lorena Hdez APRN LAB BLOOD ORDERABLES Performing Organization Address City/[facility]/ZIP [facility] Phon e Number [address] (ABNORMAL) Uric Acid (11/26/2022 1:07 PM DOUGH MIXER OPERATOR) athologist [facility] Uric Acid 6.5 (H) 2.4 - 5.7 [facility] mg/dL Comment: [facility], [address] [place] [address] Specimen Anatomical Collection Method Collection Time Receive d Time (Source) Location / / Volume Laterality Blood 11/26/2022 1:07 PM 3 1:19 DOUGH MIXER OPERATOR PM DOUGH MIXER OPERATOR Lorena Hdez CONFIGURATION MANAGER LAB BLOOD ORDERABLES Performing Organization Address City/[facility]/ZIP Code Phon e Number [address] TSH (11/26/2022 1:07 PM DOUGH MIXER OPERATOR)Only the most recent of2 resultswithin the time period is included. athologist Signature TSH 1.78 0.27 - 4.20 [facility] mcunit/mL Comment: Testing performed at [facility], [address] [place] [address] Specimen Anatomical Collection Method Collection Time Receive d Time (Source) Location / / Volume Laterality Blood 11/26/2022 1:07 PM 3 1:19 DOUGH MIXER OPERATOR PM DOUGH MIXER OPERATOR Lorena Hdez CONFIGURATION MANAGER LAB BLOOD ORDERABLES Performing Organization Address [facility] Code Phon e Number [address] Free T4 (11/26/2022 1:07 PM DOUGH MIXER OPERATOR)Only the most recent of2 resultswithin the time period is included. athologist Signature T4 Free 1.11 0.93 - 1.70 [facility] ng/dL Comment: Testing performed at [facility], [address] [place] [address] Specimen Anatomical Collection Method Collection Time Receive d Time (Source) Location / / Volume Laterality Blood 11/26/2022 1:07 PM 3 1:19 DOUGH MIXER OPERATOR PM DOUGH MIXER OPERATOR Lorena Hdez CONFIGURATION MANAGER LAB BLOOD ORDERABLES Performing Organization Address City/[facility]/ZIP Code Phon e Number [place], [place] [id number] [place] [address] NTRK3 Fusion Material Request (11/26/2022 12:43 PM DOUGH MIXER OPERATOR) Component Value Ref Test Analysis Performed At [facility] gist Range Method Time Signature Archived The test is to be 12/04/2022 MDA AP LABS Material performed on 8:01 AM DOUGH MIXER OPERATOR tissue from case [id number]. The case report, slides, and blocks for [...] Volume Laterality Tissue 11/26/2022 12:43 11/26/2022 PM DOUGH MIXER OPERATOR 12:43 PM DOUGH MIXER OPERATOR Lorena Hdez APRN [facility] IP AP BIOMARKERS Performing Organization Address [facility] Phon [place] [address] Michelle Hodges MD NTRK2 Fusion Material Request (11/26/2022 12:43 PM DOUGH MIXER OPERATOR) Component Value Ref Test Analysis Performed At [facility] Stkr.it [place] Method Time Signature Archived The test is to be 12/04/2022 MDA AP LABS Material performed on 8:01 AM DOUGH MIXER OPERATOR tissue from case [id number]. The case report, slides, and blocks for [...] Volume Laterality Tissue 11/26/2022 12:43 11/26/2022 PM DOUGH MIXER OPERATOR 12:43 PM DOUGH MIXER OPERATOR Lorena Hdez APRN [facility] IP AP BIOMARKERS Performing Organization Address [facility] Phon e Number [place] [address]15 Michelle Hodges MD NTRK1 Fusion Material Request (11/26/2022 12:43 PM DOUGH MIXER OPERATOR) Component Value Ref Test Analysis Performed At [facility] Stkr.it Range Method Time Signature Archived The test is to be 12/04/2022 MDA AP LABS Material performed on 8:01 AM DOUGH MIXER OPERATOR tissue from case [id number]. The case report, slides, and blocks for [...] Volume Laterality Tissue 11/26/2022 12:43 11/26/2022 PM DOUGH MIXER OPERATOR 12:43 PM DOUGH MIXER OPERATOR Lorena Hdez APRN [facility] IP AP BIOMARKERS Performing Organization Address [facility] Phon e [place] [address]15 Michelle Hodges MD ERBB2 Mutation Analysis Material Request (11/26/2022 12:43 PM DOUGH MIXER OPERATOR) Component Value Ref Test Analysis Performed At [facility] gist Range Method Time Signature Archived The test is to be 12/04/2022 MDA [facility] LAB[facility] Material performed on 8:01 AM DOUGH MIXER OPERATOR tissue from case [id number]. The case report, slides, and blocks for [...] Volume Laterality Tissue 11/26/2022 12:43 11/26/2022 PM DOUGH MIXER OPERATOR 12:43 PM DOUGH MIXER OPERATOR Lorena Hdez APRN [facility] IP AP BIOMARKERS Performing Organization Address [facility] Phon e Number [facility] [place] [address] 151Saurav Hodges MD ALK Mutation Analysis Material Request (11/26/2022 12:43 PM DOUGH MIXER OPERATOR) Component Value Ref Test Analysis Performed At [facility] Range Method Time Signature Archived The test is to be 12/04/2022 MDA AP LABS Material performed on 8:02 AM DOUGH MIXER OPERATOR tissue from case [id number]. The case report, slides, and blocks for [...] Volume Laterality Tissue 11/26/2022 12:43 11/26/2022 PM DOUGH MIXER OPERATOR 12:43 PM DOUGH MIXER OPERATOR Lorena Hdez APRN MDA IP AP BIOMARKERS Performing Organization Address City/[facility] Phon [place] [address] 1515 Michelle Hodges MD MTOR Mutation Material Request (11/26/2022 12:43 PM DOUGH MIXER OPERATOR) Component Value Ref Test Analysis Performed At [facility] Method Time Signature Archived The test is to be 12/04/2022 MDA AP LABS Material performed on 8:01 AM DOUGH MIXER OPERATOR tissue from case [id number]. The case report, slides, and blocks for [...] Volume Laterality Tissue 11/26/2022 12:43 11/26/2022 PM DOUGH MIXER OPERATOR 12:43 PM DOUGH MIXER OPERATOR Lorena Hdez APRN MDA IP AP BIOMARKERS Performing Organization Address City/[facility]/ZIP Code Phon [place] [address] 1515 Michelle Hodges MD PTEN Mutation Material Request (11/26/2022 12:43 PM DOUGH MIXER OPERATOR) Component Value Ref Test Analysis Performed At [facility] Method Time Signature Archived The test is to be 12/04/2022 MDA AP LABS Material performed on 8:02 AM DOUGH MIXER OPERATOR tissue from case [id number]. The case report, slides, and blocks for [...] Volume Laterality Tissue 11/26/2022 12:43 11/26/2022 PM DOUGH MIXER OPERATOR 12:43 PM DOUGH MIXER OPERATOR Lorena Kayla Hdez APRN [facility] AP BIOMARKERS Performing Organization Address City/State/ZIP Code Phon e Number [facility] [place] [place] [address] 1515 Michelle Hodges MD EGFR Mutation Material Request (11/26/2022 12:43 PM DOUGH MIXER OPERATOR) Component Value Ref Test Analysis Performed At [facility] Method Time Signature Archived The test is to be 12/04/2022 MDA AP LABS Material performed on 8:02 AM DOUGH MIXER OPERATOR tissue from case [id number]. The case report, slides, and blocks for [...] 12/04/2022 MDA AP LABS Signature signed by Lairssa March 8:02 AM BRANDAN Medrano MD on 12/04/22 8:01 AM Specimen Anatomical Collection Method Collection Time Receive d Time (Source) Location / / Volume Laterality Tissue 11/26/2022 12:43 11/26/2022 PM DOUGH MIXER OPERATOR 12:43 PM DOUGH MIXER OPERATOR Lorena Hdez APRN MDA IP AP BIOMARKERS Performing Organization Address City/State/ZIP Code Phon [place] [address] [address] [place] IHC PD-L1 Material Request (11/26/2022 12:43 PM DOUGH MIXER OPERATOR) Specimen Anatomical Collection Method Collection Time Receive d Time (Source) Location / / Volume Laterality Tissue 11/26/2022 12:43 11/26/2022 PM DOUGH MIXER OPERATOR 12:43 PM DOUGH MIXER OPERATOR Lorena Hdez APRN MDA IP AP BIOMARKERS Performing Organization Address City/State/ZIP Code Phon [place] [address] [address] IHC HER2/arcenio Material Request (11/26/2022 12:43 PM DOUGH MIXER OPERATOR) Specimen Anatomical Collection Method Collection Time Receive d Time (Source) Location / / Volume Laterality Tissue 11/26/2022 12:43 11/26/2022 PM DOUGH MIXER OPERATOR 12:43 PM DOUGH MIXER OPERATOR Lorena Hdez APRN MDA IP AP BIOMARKERS Performing Organization Address City/[facility]/ZIP Code Phon [place] Number [place] [address] [address] [place] Insulin-Like Growth Factor I (11/17/2022 12:11 PM DOUGH MIXER OPERATOR) athologist Signature Insulin-Like 154 40 - 217 [facility] Growth Factor ng/mL [facility] C[facility] [place] IGF Z-score 1.04 -2.0 - 2.0 [facility] [place] Comment: ADDITIONAL INFORMATIO N This test was developed and its performa nce characteristics determined by [facility] in a manner co nsistent with CLIA requirements. This test has not been sisi ared or approved by the U.S. Food and Drug Administration. Test Performed by: [place] [address] [address] Audit Clerk: Yonathan Guzman M.D. Ph. D.; CLIA# [id number] Specimen Anatomical Collection Method Collection Time Receive d Time (Source) Location / / Volume Laterality Blood 11/17/2022 12:11 11/17/2022 PM DOUGH MIXER OPERATOR 12:13 PM DOUGH MIXER OPERATOR Red Berman APRN LAB BLOOD ORDERABLES Performing Organization Address City/[facility]/ZIP Code Phon e Number [facility] Unless otherwise noted, [place] [address] CENTER all lab tests performed by: Division of Pathology and Laboratory Medicine [address] (ABNORMAL) ACTH (11/17/2022 12:11 PM DOUGH MIXER OPERATOR) athologist Signature ACTH 5 (L) 7 - 63 pg/mL [facility] Comment: Results greater than 1826 pg/mL may not be reliable due to matrix effect with extended dilution as it exceeds the pipe production worker's recommended limit. ACTH reference intervals are established for the morni ng hours from 7-10 am. Due to the circad katie rhythm of ACTH levels in plasma, the sample col lection time must be noted. Caution should be exercised when interpreting such values and done in conjunction with clinical context. [facility] [address] [place] [address] Specimen Anatomical Collection Method Collection Time Receive d Time (Source) Location / / Volume Laterality Blood 11/17/2022 12:11 11/17/2022 PM DOUGH MIXER OPERATOR 12:12 PM DOUGH MIXER OPERATOR Narrative [facility] - 11/17/2022 12:53 PM DOUGH MIXER OPERATOR This lab cannot be scheduled at the following locations due to collection/proccessing restrictions: [place] - [facility] DIAG LAB CTR [place] - [facility] DIAG LAB CTR [place] - [facility] DIAG LAB CTR [facility] DAIG LAB CTR [facility] DI DIAG LAB CTR [place] - [facility] DIAG LAB CTR Red Berman APRN LAB BLOOD ORDERABLES Performing Organization Address City/State/[place] [address] [place] [address] Prolactin (11/17/2022 12:11 PM DOUGH MIXER OPERATOR) athologist Signature Prolactin 9.3 4.8 - 23.3 [facility] ng/mL [facility] Comment: Results greater than 4700.0 ng/ mL may not be reliable due to matrix effect with extended dilution as it exceeds the pipe production worker s recommended limit. Caution should be e xercised when interpreting such values and done in conjunction with clinical contex t. Specimen Anatomical Collection Method Collection Time Receive d Time (Source) Location / / Volume Laterality Blood 11/17/2022 12:11 11/17/2022 7:44 PM DOUGH MIXER OPERATOR PM DOUGH MIXER OPERATOR Red Berman APRN LAB BLOOD ORDERABLES Performing Organization Address City/State/ZIP Code Phon e Number [facility] Unless otherwise noted, [address] all lab tests performed by: Division of Pathology and Laboratory Medicine [address] [facility] Estradiol level (11/17/2022 12:11 PM DOUGH MIXER OPERATOR) athologist Signature Estradiol <11 pg/mL [facility] Comment: Reference Ranges: Adult Females: [...] Laterality Blood 11/17/2022 12:11 11/17/2022 7:44 PM DOUGH MIXER OPERATOR PM DOUGH MIXER OPERATOR Red Berman APRN LAB BLOOD ORDERABLES Performing Organization Address City/State/ZIP Code Phon e Number [facility] Unless otherwise noted, [address] all lab tests performed by: Division of Pathology and Laboratory Medicine [address] [facility] T3 (11/17/2022 12:11 PM DOUGH MIXER OPERATOR) athologist Signature T3 Total 88 80 - 200 PORUM ng/dL Comment: Performed at [facility], [address] [place] [address], [place] [address] Specimen Anatomical Collection Method Collection Time Receive d Time (Source) Location / / Volume Laterality Blood 11/17/2022 12:11 11/17/2022 PM DOUGH MIXER OPERATOR 12:12 PM DOUGH MIXER OPERATOR Red Berman APRN LAB BLOOD ORDERABLES Performing Organization Address City/State/ZIP Code Phon e Number [place], [place] [address] [place] [address] Testosterone Level (11/17/2022 12:11 PM DOUGH MIXER OPERATOR) athologist [facility] Testoster Tot <3 3 - 41 PORUM ng/dL Comment: Reference Ranges: Male: Age 20 - 49 249 - 836 Age >=50 1 93 - 740 Female: Age 20 - 49 8 - 48 Age >=50 3 - 41 [facility], [address] [place] [address] Specimen Anatomical Collection Method Collection Time Receive d Time (Source) Location / / Volume Laterality Blood 11/17/2022 12:11 11/17/2022 PM DOUGH MIXER OPERATOR 12:12 PM DOUGH MIXER OPERATOR Red Berman APRN LAB BLOOD ORDERABLES Performing Organization Address City/State/[place] [address] [place] [address] LH (11/17/2022 12:11 PM DOUGH MIXER OPERATOR) athologist [facility] LH 15.8 mIU/mL [facility] Comment: Female Luteinizing Hormone Reference Ran ges: LOW HIGH Follicular 2.4 12.6 Ovulation 14.0 95.6 Luteal 1.0 11.4 Postmenopause 7.7 58.5 Specimen Anatomical Collection Method Collection Time Receive d Time (Source) Location / / Volume Laterality Blood 11/17/2022 12:11 11/17/2022 7:44 PM DOUGH MIXER OPERATOR PM DOUGH MIXER OPERATOR Red Berman APRN LAB BLOOD ORDERABLES Performing Organization Address City/State/ZIP Code Phon e Number [facility] Unless otherwise noted, [place] [address] [place] all lab tests performed by: Division of Pathology and Laboratory Medicine [address] [facility] Level (11/17/2022 12:11 PM DOUGH MIXER OPERATOR) athologist Signature [facility]SH 31.4 mIU/mL [facility] [place] Comment: Female Follicle Stimulating Hormone Refe rence Ranges: L OW HIGH Follicular 3.5 12.5 Ovulation 4.7 21.5 Luteal 1.7 7.7 Postmenopause 25.8 134.8 Specimen Anatomical Collection Method Collection Time Receive d Time (Source) Location / / Volume Laterality Blood 11/17/2022 12:11 11/17/2022 7:44 PM DOUGH MIXER OPERATOR PM DOUGH MIXER OPERATOR Red Berman APRN LAB BLOOD ORDERABLES Performing Organization Address City/State/ZIP Code Phon e Number [facility] Unless otherwise noted, [place] [address] CENTER all lab tests performed by: Division of Pathology and Laboratory Medicine [address] [facility] (ABNORMAL) Cortisol, Total (11/17/2022 12:11 PM DOUGH MIXER OPERATOR) athologist [facility] Cortisol, 1.67 (L) 4.80 - PORUM Total 19.50 mcg/dL Comment: Cortisol reference intervals [...] (4-8pm) (2.5 - 11.9) Testing performed at [facility], [address] [place] [address] Specimen Anatomical Collection Method Collection Time Receive d Time (Source) Location / / Volume Laterality Blood 11/17/2022 12:11 11/17/2022 PM DOUGH MIXER OPERATOR 12:12 PM DOUGH MIXER OPERATOR Red Berman APRN LAB BLOOD ORDERABLES Performing Organization Address City/[facility]/ZIP [place] [address] [place] [address] Pathology Outside Interpretation (10/16/2022) Component Value Ref Test Analysis Performed Pathologis t Range Method Time At [facility] Materials Accession#, Stained, Block, Unstained Collected Received 11/27/2022 [facility] Received A. [id number], 7 SS, 1 BLOCKS, 0 USS 10/16/2022 11/24/2022 5:08 PM DOUGH MIXER OPERATOR Addendum 1 At the request of the donell machado physician the following studies were performed and interpreted at [facility]. 11/27/2022 [facility] Addendum 5:08 PM electronic ally The tumor cells are negative for Her2 (0%) by immunohi stochemical analysis. 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 MD Gerald on 11/27/2022 at PD-L1 (Clone 22C3, [employer]) Combine d Positive Score (CPS): is less than 1 5:08 PM Assay Information: This assa y is manufactured by [employer] and uses a monoclonal anti-PD-L1, clone 22C3. It is performed on formalin-fixed paraffin- embedded tissue using an [employer] autostainer a nd polymer based detection k it, as specified by the pipe production worker. It is approved for use as a chemotherapist diagnostic for specific therapies on certain tumor [...] is defined as CPS 100. Diagnosis Outside ([id number], 7 SS, 1 BLOCKS, 0 USS, colle cted on 10/16/2022): 11/27/2022 [email or web address] Electronically 5:08 PM signed by Nasopharynx, biopsy: DOUGH MIXER OPERATOR Ashleigh ADENOID CYSTIC CARCINOMA, CRIBRIFORM TYPE see comment MD Gerald on 11/26/2022 at EARL/SALEEM 9:43 AM Comment Submitted 11/27/2022 [facility] immunohistochemical 5:08 PM stains performed by DOUGH MIXER OPERATOR referring institution show that CK7 highlights the epithelial cells, and p63 and p40 highlights the myoepithelial cells. The morphology and immunophenotype is supportive of this classification. Biomarker Tumor block: 11/27/2022 [facility] Block(s) [id number] 5:08 PM DOUGH MIXER OPERATOR Disclaimer "Some tests reported 11/27/2022 [facility] here may have been 5:08 PM developed and DOUGH MIXER OPERATOR performance characteristics determined by [facility]. These tests have not been specifically cleared or approved by the U.S. Food and Drug Administration. If applicable, controls were reviewed and showed appropriate reactivity." Specimen (Source) Anatomical Collection Method Collection Time Re ceived Time Location / / Volume Laterality Tissue 10/16/2022 11/24/2022 3:02 PM DOUGH MIXER OPERATOR Alexa Alvarez MD LAB PATHOLOGY ORDERABLES Performing Organization Address City/State/ZIP Code Phon e Number [facility] [place] [address] [address] after 04/13/2022 Insurance Payer Benefit Plan / Subscriber ID Effective Phone Address T ype Group Dates MEDICARE MEDICARE PART A [id number] 2010-Pres [phone] [place] Medicare AND B ent [id number] [address] [facility] [place] [phone] [place] [id number] 2022-Pres [address] Medicaid TRADITIONAL TRADITIONAL ent [id number] [place] [address] Advance Directives Code Status Date Activated Date Inactivated Comments Full Code 02/06/2023 1:33 AM 02/16/2023 6:41 PM Code Status Date Activated Date Inactivated Comments Full Code 01/26/2023 5:50 PM 02/01/2023 8:34 PM Full Code 01/11/2023 10:19 PM 01/18/2023 9:39 PM Full Code 12/09/2022 10:42 PM 12/15/2022 9:30 PM Care Teams Psychology Physician Relationship Specialty Start Date End Date Bina Obando PCP - External Otolaryngology 11/12/22 MD Joana Referring [address] [place] [phone] Kenya Agarwal MD PCP - General Head and Neck Surgery 11/12/22 [facility] [place], [place] [id number] Trent Irving MD Family [facility] 11/26/22 [address] [place] [address] Randall Sheriff [facility] 11/26/22 MD Maciej [address] [place] [address] Vignesh Waddell, Pulmonary Medicine 11/26/22 [address] [place] [address] Naa Miller, Cardiology 11/26/[address] [address] Tapan Harper, Gastroenterology 11/26/22 MD [address] [place] [address] Rafael Rosas, Ophthalmology 11/26/22 [address] [place] [phone] Suzanne Mcgrath MD Consulting Physician Ophthalmology 12/29/22 [facility] [place], [place] [id number]
[2023-04-13] MEDS ORDERED: MORPHINE 4 MG/ML SYR ONE (17:28)
[2023-04-13] MEDS ORDERED: ONDANSETRON 4 MG/2 ML VIAL ONE (17:29)
[2023-04-13] MEDS ORDERED: NA CHLORIDE 0.9% 1,000 ML ONE (17:29)
[2023-04-13 17:39] LABS: Absolute Lymphocytes (CBC) 1.2 K/uL (0.7-4.9); Hematocrit 44.3 % (36.0-45.0); Lymphocytes % 15.3 % (15.3-44.8); MCV 96.3 fL (80-100); MPV 8.2 fL (7.6-11.3); RBC Red Blood Cell Count 4.59 M/uL (3.86-4.86)
[2023-04-13] MEDS ORDERED: FLEET ENEMA ADULT PR ONE ×2 (17:40→20:25)
[2023-04-13 17:43] LABS: Protime INR 0.98
[2023-04-13 17:55] LABS: Albumin 3.5 g/dL (3.4-5.0); Bilirubin Total 0.3 mg/dL (0.2-1.0); Protein, Total 7.7 g/dL (6.4-8.2)
[2023-04-13 17:56] LABS: Potassium 4.9 mEq/L (3.5-5.1)
--- OUTSIDE RECORDS SUMMARY | 2023-04-13 18:06 | XMS REPORT | Continuity of Care Document ---
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 oxyCODONE-a Yes Cancer 1{tbl} Take 1 [facility] cetaminophe 5-04 associated tablet by ity of n 00:00: pain mouth 2 [place] (Percocet) 00 (two) MD 5 mg-325 mg times a Suraj so per tablet day as n needed for Cancer severe Center pain. HYDROcodone Yes 2745 1{tbl} Take 1 Un [...] (two) MD 5 mg-325 mg times a Suraj so per tablet day as n needed for Cancer severe Center pain. oxyCODONE-a Yes Cancer 1{tbl} Take 1 [facility] cetaminophe 5-04 associated tablet by ity of n 00:00: pain mouth 2 [place] (Percocet) 00 (two) MD 5 mg-325 mg times a Suraj so per tablet day as n needed for Cancer severe Center pain. oxyCODONE-a Yes Cancer 1{tbl} Take 1 [facility] cetaminophe 5-04 associated tablet by ity of n 00:00: pain mouth 2 [place] (Percocet) 00 (two) MD 5 mg-325 mg times a Suraj so [...] 53 by mouth MD twice Anderso daily. n [facility] Center colchicine Yes prevention .6mg Take 1 Univers (COLCRYS) 5-03 of acute tablet ity of 0.6 mg 11:42: gout attack (0.6 mg) [place] tablet 53 by mouth MD daily. Anderso n [facility] dicyclomine Yes 10mg Take 1 Univ [...] 53 by mouth MD twice Anderso daily. n [facility] colchicine Yes prevention .6mg Take 1 [facility] (COLCRYS) 5-03 of acute tablet ity of 0.6 mg 11:42: gout attack (0.6 mg) [place] tablet 53 by mouth MD daily. [facility] dicyclomine Yes 10mg Take 1 Univ ers (BENTYL) 10 5-03 capsule ity o f mg capsule 11:42: (10 mg) by [place] exlauryn 53 mouth 3 MD (three) Anderso times a n day. [facility] Center lisinopril Yes 40mg Take 1 Unive rs (PRINIVIL,Z 5-03 tablet (40 it y of ESTRIL) 40 11:42: mg) by [place] mg tablet 53 mouth MD every Anderso morning. [facility] allopurinol Yes prevention 300mg Take 1 Univers (ZYLOPRIM) 5-03 of acute tablet ity of 300 mg 11:42: gout attack (300 mg) [place] tablet 53 by mouth MD twice Anderso daily. [facility] colchicine Yes prevention .6mg Take 1 Univers (COLCRYS) 5-03 of acute tablet ity of 0.6 mg 11:42: gout attack (0.6 mg) [place] tablet 53 by mouth MD daily. [facility] dicyclomine Yes 10mg Take 1 Univ [...] EVERY 8 Anderso HOURS n Cancer Center gabapentin Yes Chronic TAKE 1 Un ally (NEURONTIN) - pain TABLET(800 it y of 800 mg 00:00: MG) BY [place] tablet 00 MOUTH MD EVERY 8 Anderso HOURS n [facility] Center gabapentin Yes Chronic TAKE 1 Un ally (NEURONTIN) - pain TABLET(800 it y of 800 mg 00:00: MG) BY [place] tablet 00 MOUTH MD EVERY 8 Anderso HOURS [facility] Center gabapentin 2022- No Chronic TAKE 1 U nivers (NEURONTIN) 03-02 06-09 pain TABLET(800 i ty of 800 mg 00:00: 00:00 MG) BY [place] tablet 00 :00 MOUTH MD EVERY 8 Anderso HOURS [facility] Center pseudoephed Yes Chronic 30mg Take 1 U nivers rine 4-28 pain tablet (30 ity of (Sudafed) 00:00: mg) by [place] 30 mg 00 mouth MD tablet every 8 Anderso (eight) n hours as Cancer needed for Center congestion . pseudoephed Yes Chronic 30mg Take 1 U nivers rine 4-28 pain tablet (30 ity of (Sudafed) 00:00: mg) by [place] 30 mg 00 mouth MD tablet every 8 Anderso (eight) n hours as Cancer needed for Center congestion . pseudoephed Yes Chronic 30mg Take 1 U nivers rine 4-28 pain tablet (30 ity of (Sudafed) 00:00: mg) by [place] 30 mg 00 mouth MD tablet every 8 Anderso (eight) n hours as Cancer needed for Center congestion . pseudoephed Yes Chronic 30mg Take 1 U nivers rine 4-28 pain tablet (30 ity of (Sudafed) 00:00: mg) by [place] 30 mg 00 mouth MD tablet every 8 Anderso (eight) n hours as Cancer needed for Center congestion . metoprolol Yes TAKE 1 Unive rs succinate 4-26 TABLET BY ity o f (TOPROL XL) 00:00: MOUTH [place] 100 mg 24 00 TWICE MD hr [facility] Yes TAKE 1 Unive rs TARTRATE [...] a n day as Cancer needed. Center hydrALAZINE No hypertensio 100mg Take 1 Univers (APRESOLINE 4-18 04-18 n tablet ity o f ) 100 mg 16:41: 00:00 (100 mg) [place] tablet 23 :00 by mouth 3 MD (three) Anderso times a n day. Cancer [place] hydroCHLORO 2022- No 12.5mg Take 1 U [...] a n day as Cancer needed. Center hydrALAZINE 2022- No hypertensio 100mg Take 1 [...] times a n day as Cancer needed. [place] hydrALAZINE 2022- No hypertensio 100mg Take 1 [...] MD capsule every Anderso morning. n Cancer [place] cloNIDine 2022- No .2mg Take 1 Unive rs HCl 4-18 04-18 tablet ity of (CATAPRES) 16:41: 00:00 (0.2 mg) [place] 0.2 mg 23 :00 by mouth 3 MD tablet (three) Anderso times a n day as Cancer needed. [place] insulin Yes Type 2 Inject Univer s [...] Type 2 Inject Univer s regular hum -18 diabetes 70-180 it y of U-500 conc 00:00: mellitus Units [place] (HumuLIN R 00 without under the M D U-500, complicatio skin daily Anderso Conc, n with n Kwikpen) breakfast Cancer 500 unit/mL AND 40-105 Ce nter (3 mL) Units insulin pen daily before lunch AND 35-95 Units daily before dinner. insulin Yes Type 2 Inject Univer s regular hum -18 diabetes 70-180 it y of U-500 conc 00:00: mellitus Units [place] (HumuLIN R 00 without under the M D U-500, complicatio skin daily Anderso Conc, n with n Kwikpen) breakfast Cancer 500 unit/mL AND 40-105 Ce nter (3 mL) Units insulin pen daily before lunch AND 35-95 Units daily before dinner. insulin Yes Type 2 Inject Univer s regular hum -18 diabetes 70-180 it y of U-500 conc 00:00: mellitus Units [place] (HumuLIN R 00 without under the M D U-500, complicatio skin daily Anderso Conc, n with n Kwikpen) breakfast Cancer 500 unit/mL AND 40-105 Ce nter (3 mL) Units insulin pen daily before lunch AND 35-95 Units daily before dinner. levoFLOXaci 0 2022- No Deep venous 750mg Take 1 Univers n 02-16 04-22 thrombosis tablet ity of (LEVAQUIN) 00:00: 04:59 <Unspecifie (750 mg) [place] 750 mg 00 :00 d side> by mouth MD tablet daily for Anderso 3 days. n [facility] levoFLOXaci 2022- No Deep venous 750mg Take 1 Univers n 02-16 thrombosis tablet ity of (LEVAQUIN) 00:00: 04:59 <Unspecifie (750 mg) [place] 750 mg 00 :00 d side> by mouth MD tablet daily for Anderso 3 days. n [facility] levoFLOXaci 2022- No Deep venous 750mg Take 1 Univers n 02-16 thrombosis tablet ity of (LEVAQUIN) 00:00: 04:59 <Unspecifie (750 mg) [place] 750 mg 00 :00 d side> by mouth MD tablet daily for Anderso 3 days. n [facility] levoFLOXaci 2022- No Deep venous 750mg Take 1 Univers n 02-16 thrombosis tablet ity of (LEVAQUIN) 00:00: 04:59 <Unspecifie (750 mg) [place] 750 mg 00 :00 d side> by mouth MD tablet daily for Anderso 3 days. n [facility] enoxaparin Yes Deep venous 120mg Inject 0.8 Univers (LOVENOX) 4-14 thrombosis mL (120 i ty of 120 mg/0.8 00:00: <Unspecifie mg) under [place] mL 00 d side> the skin MD prefilled every 12 Lauri o syringe (twelve) n hours. [facility] enoxaparin Yes Deep venous 120mg Inject 0.8 Univers (LOVENOX) 4-14 thrombosis mL (120 i ty of 120 mg/0.8 00:00: <Unspecifie mg) under [place] mL 00 d side> the skin MD prefilled every 12 Lauri o syringe (twelve) n hours. [facility] enoxaparin Yes Deep venous 120mg Inject 0.8 Univers (LOVENOX) 4-14 thrombosis mL (120 i ty of 120 mg/0.8 00:00: <Unspecifie mg) under [place] mL 00 d side> the skin MD prefilled every 12 Lauri o syringe (twelve) n hours. [facility] enoxaparin 2022- No Deep venous 120mg Inject 0.8 Univers (LOVENOX) 4-14 05-31 thrombosis mL (120 ity of 120 mg/0.8 00:00: 00:00 <Unspecifie mg) under [place] mL 00 :00 d side> the skin MD prefilled every 12 Lauri o syringe (twelve) n hours. Cancer Center oxyCODONE-a 2022- No Neoplasm 1{tbl} Take 1 Univers cetaminophe 4-14 04-18 related tablet by ity of n 00:00: 00:00 pain mouth [place] (Percocet) 00 :00 (acute) every 6 MD 7.5-325 mg (chronic) (six) And erso per tablet hours as n needed for Cancer severe Center pain for up to 45 days. oxyCODONE-a 2022- No Neoplasm 1{tbl} Take 1 [facility] cetaminophe 4-14 04-18 related tablet by ity of n 00:00: 00:00 pain mouth [place] (Percocet) 00 :00 (acute) every 6 MD 7.5-325 mg (chronic) (six) And erso per tablet hours as n needed for Cancer severe Center pain for up to 45 days. oxyCODONE-a 2022- No Neoplasm 1{tbl} Take 1 [facility] cetaminophe 4-14 04-18 related tablet by ity of n 00:00: 00:00 pain mouth [place] (Percocet) 00 :00 (acute) every 6 MD 7.5-325 mg (chronic) (six) And erso per tablet hours as n needed for Cancer severe Center pain for up to 45 days. oxyCODONE-a 2022- No Neoplasm 1{tbl} Take 1 [facility] cetaminophe 4-14 04-18 related tablet by ity of n 00:00: [...] nasal spray , NOS twice n daily. [facility] lidocaine Yes Adenocarcin 5mL Swish and [...] nasal spray , NOS twice n daily. [facility] lidocaine Yes Adenocarcin 5mL Swish and [...] nasal spray , NOS twice n daily. [facility] lidocaine Yes Adenocarcin 5mL Swish and [...] nasal spray , NOS twice n daily. [facility] ondansetron 2023- Yes Adenoid 8mg Take [...] DAILY MD x 03/16 syrg hyperglycem A nderamano ia n Cancer Center insulin 2022- Type 2 USE Unive rs syringe-nee 02-02 diabetes DIRECTED ity of dle U-100 1 00:00: 00:00 mellitus FOUR TIMES [place] mL 31 gauge 00 :00 with DAILY MD x 5/16 syrg hyperglycem A nderso ia n Cancer Center oxyCODONE-a 2022- No Chronic 1{tbl} Take 1 [facility] cetaminophe - 05-04 pain tablet by it y of n 00:00: 00:00 mouth [place] (PERCOCET) 00 :00 every 6 MD 7.5-325 mg (six) Anderso per tablet hours as n needed for Cancer severe Center pain. oxyCODONE-a 2022- No Chronic 1{tbl} Take 1 [facility] cetaminophe - 05-04 pain tablet by it y of n 00:00: 00:00 mouth [place] (PERCOCET) 00 :00 every 6 MD 7.5-325 mg (six) Anderso per tablet hours as n needed for Cancer severe Center pain. oxyCODONE-a 2022- No Chronic 1{tbl} Take 1 [facility] cetaminophe - 05-04 pain tablet by it y of n 00:00: 00:00 mouth [place] (PERCOCET) 00 :00 every 6 MD 7.5-325 mg (six) Anderso per tablet hours as n needed for Cancer severe Center pain. oxyCODONE-a 2022- No Chronic 1{tbl} Take 1 [facility] cetaminophe - 05-04 pain tablet by it y of n 00:00: 00:00 mouth [place] (PERCOCET) 00 :00 every 6 MD 7.5-325 mg (six) Anderso per tablet hours as n needed for Cancer severe Center pain. gabapentin 2022- No Chronic 800mg Take 1 Univers (NEURONTIN) 02-01-02 pain tablet ity o f 800 mg 00:00: 00:00 (800 mg) [place] tablet 00 :00 by mouth MD every 8 Anderso (eight) n hours. [facility] gabapentin 2022- No Chronic 800mg Take 1 Univers (NEURONTIN) 02-01- pain tablet ity o f 800 mg 00:00: 00:00 (800 mg) [place] tablet 00 :00 by mouth MD every 8 Anderso (eight) n hours. [facility] gabapentin 2022- No Chronic 800mg Take 1 Univers (NEURONTIN) 02-01- pain tablet ity o f 800 mg 00:00: 00:00 (800 mg) [place] tablet 00 :00 by mouth MD every 8 Anderso (eight) n hours. [facility] gabapentin 2022- No Chronic 800mg Take 1 Univers (NEURONTIN) 02-01- pain tablet ity o f 800 mg 00:00: 00:00 (800 mg) [place] tablet 00 :00 by mouth MD every 8 Anderso (eight) n hours. [facility] pen needle, Yes Type 2 Use to Un ally diabetic - diabetes inject ity o f (Easy 00:00: mellitus insulin 4 Frankie as Comfort Pen 00 with times a MD [place]) 31 hyperglycem day A nderso gauge x ia n 03/16" [facility] pen needle, Yes Type 2 Use to Un ally diabetic - diabetes inject ity o f (Easy 00:00: mellitus insulin 4 [place] as Comfort Pen 00 with times a MD [place]) 31 hyperglycem day A nderso gauge x ia n 03/16" [facility] pen needle, Yes Type 2 Use to Un ally diabetic - diabetes inject ity o f (Easy 00:00: mellitus insulin 4 [place] as Comfort Pen 00 with times a MD [place]) 31 hyperglycem day A nderso gauge x ia n 03/16" [facility] pen needle, Yes Type 2 Use to Un ally diabetic 4-02 diabetes inject ity o f (Easy 00:00: mellitus insulin 4 [place] as Comfort Pen 00 with times a MD [place]) 31 hyperglycem day A nderso gauge x ia n 03/16" [facility] insulin 2022- No Type 2 Inject 5 Uni vers regular - 04-18 diabetes units to ity of (HumuLIN R 00:00: 00:00 mellitus 25 units [place] Regular 00 :00 with with meals MD U-100 hyperglycem as needed An derso Insuln) [...] 00:00 [place] 00 :00 MD Liane olivier [facility] insulin 2022- No Type 2 Inject 5 Uni vers regular 01-31 diabetes units to ity of (HumuLIN R 00:00: 00:00 mellitus 25 units [place] Regular 00 :00 with with meals MD U-100 hyperglycem as needed An derso Insuln) [...] 00:00 [place] 00 :00 MD Liane olivier [facility] Center insulin 2022- No Type 2 Inject [...] MD [facility] 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 n another Cancer dose into Center the other nostril after 2 minutes if the patient does not respond naloxone 3-0 Yes half-way 1 dose Un ally (Narcan) 4 3-22 current use into one ity of mg/actuatio 00:00: of opiate nostril as [place] n nasal 00 analgesic needed for M D spray opioid [place] overdose. n another Cancer dose into Center the other nostril after 2 minutes if the patient does not respond naloxone 2022-0 Yes half-way 1 dose Un ally (Narcan) 4 3-22 current use into one ity of mg/actuatio 00:00: of opiate nostril as [place] n nasal 00 analgesic needed for M D spray opioid Anderso overdose. n another Cancer dose into Center the other nostril after 2 minutes if the patient does not respond xyloxylin 2022- No Ulcerative 10mL Swish and Univers oral -20 02-18 oral swallow 10 ity of suspension 00:00: 00:00 mucositis mL 2 (two) [place] (AMB-CMPD) 00 :00 due to times a MD antineoplas day as Lauri o tic therapy needed for n mouth Cancer pain. [place] xyloxylin 2022- No Ulcerative 10mL Swish and Univers oral 01-20-18 oral swallow 10 ity of suspension 00:00: 00:00 mucositis mL 2 (two) [place] (AMB-CMPD) 00 :00 due to times a MD antineoplas day as Lauri o tic therapy needed for n mouth Cancer pain. Center xyloxylin 2022- No Ulcerative 10mL Swish and Univers oral 3-20 02-18 oral swallow 10 ity of suspension 00:00: 00:00 mucositis mL 2 (two) [place] (AMB-CMPD) 00 :00 due to times a MD antineoplas day as Lauri o tic therapy needed for n mouth Cancer pain. Center xyloxylin 2022- No Ulcerative 10mL Swish and Univers oral 3- 04-18 oral swallow 10 ity of suspension 00:00: 00:00 mucositis mL 2 (two) [place] (AMB-CMPD) 00 :00 due to times a MD antineoplas day as Lauri o tic therapy needed for n mouth Cancer pain. [place] hydrALAZINE 3- No 100mg Take 1 Un ally (APRESOLINE 3-20 03-20 tablet ity o f ) 100 mg 19:34: 00:00 (100 mg) [place] tablet [place] :00 by mouth 3 MD (three) Anderso times a n day. Cancer [place] metFORMIN 2022-2022- No 1000mg Take 1 Uni vers (GLUCOPHAGE 3-20 03-20 tablet ity o f ) 1000 mg 19:34: 00:00 (1,000 mg) [place] tablet 54 :00 by mouth 2 MD (two) Anderso times a n day with Cancer meals. [place] spironolact 2022- No 25mg Take 1 Uni vers one 3-20 03-20 tablet (25 ity of (ALDACTONE) 19:34: 00:00 mg) by [place] as 25 mg 54 :00 mouth MD tablet daily. [facility] hydrALAZINE 2022-2022- No 100mg Take 1 Un ally (APRESOLINE 3-20 03-20 tablet ity o f ) 100 mg 19:34: 00:00 (100 mg) [place] tablet 54 :00 by mouth 3 MD (three) Anderso times a n day. [facility] metFORMIN 2022-0 2022- No 1000mg Take 1 Uni vers (GLUCOPHAGE 3-20 03-20 tablet ity o f ) 1000 mg 19:34: 00:00 (1,000 mg) [place] tablet 54 :00 by mouth 2 MD (two) Anderso times a n day with Cancer meals. [place] spironolact 2022-0 2022- No 25mg Take 1 Uni vers one 3-20 03-20 tablet (25 ity of (ALDACTONE) 19:34: 00:00 mg) by [place] 25 mg 54 :00 mouth MD tablet daily. [facility] hydrALAZINE 2022-0 3- No 100mg Take 1 Un ally (APRESOLINE 3-20 03-20 tablet ity o f ) 100 mg 19:34: 00:00 (100 mg) [place] tablet 54 :00 by mouth 3 MD (three) Anderso times a n day. [facility] metFORMIN 2022- No 1000mg Take 1 Uni vers (GLUCOPHAGE 3-20 03-20 tablet ity o f ) 1000 mg 19:34: 00:00 (1,000 mg) [place] tablet 54 :00 by mouth 2 MD (two) Anderso times a n day with Cancer meals. [place] spironolact 2022- No 25mg Take 1 Uni vers one 3-20 03-20 tablet (25 ity of (ALDACTONE) 19:34: 00:00 mg) by [place] 25 mg 54 :00 mouth MD tablet daily. [facility] hydrALAZINE 2022- No 100mg Take 1 Un ally (APRESOLINE 3-20 03-20 tablet ity o f ) 100 mg 19:34: 00:00 (100 mg) [place] tablet 54 :00 by mouth 3 MD (three) Anderso times a n day. [facility] metFORMIN 2022- No 1000mg Take 1 Uni vers (GLUCOPHAGE 3-20 03-20 tablet ity o f ) 1000 mg 19:34: 00:00 (1,000 mg) [place] tablet 54 :00 by mouth 2 MD (two) Anderso times a n day with Cancer meals. [place] spironolact 2022- No 25mg Take 1 Uni vers one 3-20 03-20 tablet (25 ity of (ALDACTONE) 19:34: 00:00 mg) by [place] 25 mg 54 :00 mouth MD tablet daily. [facility] metoprolol 2022- No Hypertensio 50mg Take 1 [facility] tartrate 3-20 04-20 n tablet (50 ity of (LOPRESSOR) 00:00: 04:59 mg) by [place] as 50 mg 00 :00 mouth MD tablet twice Anderso daily for n 30 days. [facility] metoprolol 2022- No Hypertensio 50mg Take 1 [facility] tartrate 3-20 04-20 n tablet (50 ity of (LOPRESSOR) 00:00: 04:59 mg) by [place] 50 mg 00 :00 mouth MD tablet twice Anderso daily for n 30 days. [facility] metoprolol 2022- No Hypertensio 50mg Take 1 [facility] tartrate 3-20 -20 n tablet (50 ity of (LOPRESSOR) 00:00: 04:59 mg) by [place] 50 mg 00 :00 mouth MD tablet twice Anderso daily for n 30 days. [facility] metoprolol 2022- No Hypertensio 50mg Take 1 [facility] tartrate 3-20 -20 n tablet (50 ity of (LOPRESSOR) 00:00: 04:59 mg) by [place] 50 mg 00 :00 mouth MD tablet twice Anderso daily for n 30 days. [facility] sucralfate 2022- No Ulcerative 1000mg Take 10 mL Univers (CARAFATE) 01-1818 oral (1,000 mg) it y of 100 mg/mL 00:00: 00:00 mucositis by mouth 4 [place] suspension 00 :00 due to (four) antineoplas times a Suraj so tic therapy day. n [facility] UNABLE TO 2022- No Compound Uni vers FIND 01-18 Drug ity of 00:00: 00:00 [place] 00 :00 MD Rob [facility] sucralfate 2022- No Ulcerative 1000mg Take 10 mL [facility] (CARAFATE) 01-18 oral (1,000 mg) it y of 100 mg/mL 00:00: 00:00 mucositis by mouth 4 [place] suspension 00 :00 due to (four) antineoplas times a Suraj so tic therapy day. n [facility] UNABLE TO 2022- No Compound Uni vers FIND 01-18 Drug ity of 00:00: 00:00 [place] 00 :00 MD Rob [facility] sucralfate 2022- No Ulcerative 1000mg Take 10 mL [facility] (CARAFATE) 01-18-18 oral (1,000 mg) it y of 100 mg/mL 00:00: 00:00 mucositis by mouth 4 [place] suspension 00 :00 due to (four) antineoplas times a Suraj so tic therapy day. n [facility] UNABLE TO 2023-0 2023- No Compound Uni vers FIND 01-18 Drug ity of 00:00: 00:00 [place] 00 :00 MD [facility] sucralfate Ulcerative 1000mg Take 10 mL [facility] (CARAFATE) 01-18 oral (1,000 mg) it y of 100 mg/mL 00:00: 00:00 mucositis by mouth 4 [place] suspension 00 :00 due to (four) MD noe times a Suraj so tic therapy day. n Cancer Center UNABLE TO Compound Uni vers FIND 01-18 Drug ity of 00:00: 00:00 [place] 00 :00 MD Liane olivier [facility] oxyCODONE-a 2022- No Neoplasm 1{tbl} Take 1 [facility] cetaminophe -18 02-03 related tablet by ity of n 00:00: 00:00 pain mouth [place] (Percocet) 00 :00 (acute) every 6 MD 5 mg-325 mg (chronic) (six) An derso per tablet hours as n needed for Cancer severe Center pain. oxyCODONE-a 2022- No Neoplasm 1{tbl} Take 1 [facility] cetaminophe 3-20 -03 related tablet by ity of n 00:00: 00:00 pain mouth [place] (Percocet) 00 :00 (acute) every 6 MD 5 mg-325 mg (chronic) (six) An derso per tablet hours as n needed for Cancer severe Center pain. oxyCODONE-a 2022- No Neoplasm 1{tbl} Take 1 [facility] cetaminophe 3-20 04-03 related tablet by ity of n 00:00: 00:00 pain mouth [place] (Percocet) 00 :00 (acute) every 6 MD 5 mg-325 mg (chronic) (six) An derso per tablet hours as n needed for Cancer severe Center pain. oxyCODONE-a 2022- No Neoplasm 1{tbl} Take 1 [facility] cetaminophe 3-20 04-03 related tablet by ity of n 00:00: 00:00 pain mouth [place] (Percocet) 00 :00 (acute) every 6 MD 5 mg-325 mg (chronic) (six) An derso per tablet hours as n needed for Cancer severe Center pain. insulin 2022- No Type 2 50U Inject 50 Un ally regular [facility] 01-18 diabetes to 125 i ty of [...] directed. ity o f needle 00:00: 14:58 [place] 00 :12 MD Liane olivier [facility] insulin 2022- No Type 2 50U Inject 50 Un ally regular [facility] 01-18 diabetes to 125 i ty of [...] directed. ity o f needle 00:00: 14:58 [place] 00 :12 MD Liane olivier [facility] insulin 2022- No Type 2 50U Inject 50 Un laly regular [facility] 01-18 diabetes to 125 i ty of [...] directed. ity o f needle 00:00: 14:58 [place] 00 :12 MD Liane olivier [facility] Center insulin 2022- No Type 2 50U [...] directed. ity o f needle 00:00: 14:58 [place] 00 :12 [facility] [...] of suspension 00:00: 00:00 mucositis mL by [place] (AMB-CMPD) 00 :00 due to mouth MD antineoplas [...] of suspension 00:00: 00:00 mucositis mL by [place] (AMB-CMPD) 00 :00 due to mouth MD antineoplas [...] of suspension 00:00: 00:00 mucositis mL by [place] ([facility]) 00 :00 due to mouth MD antineoplas [...] of suspension 00:00: 00:00 mucositis mL by [place] ([facility]) 00 :00 due to mouth MD antineoplas [...] No Ulcerative 10mL [facility] oral 01-18- oral swallow 10 ity of suspension 00:00: 00:00 mucositis mL every 6 [place] (AMB-CMPD) 00 :00 due to (six) MD [...] therapy needed for n mouth Cancer pain. [place] oxyCODONE-a 2022- No Neoplasm 1{tbl} Take 1 [facility] cetaminophe 01-18-20 related tablet by ity of n 00:00: [...] therapy needed for n mouth Cancer pain. [place] sucralfate 2022- No Ulcerative 1000mg Take 10 [...] Suraj so tic therapy day. n Cancer [place] xyloxylin 2022- No Ulcerative 10mL Sw[facility] and [facility] oral 3-20 -20 oral swallow 10 ity of suspension 00:00: 00:00 mucositis mL every 6 [place] (AMB-CMPD) 00 :00 due to (six) MD antineoplas hours as Bandar rso tic therapy needed for n mouth Cancer pain. [place] oxyCODONE-a 2022- No Neoplasm 1{tbl} Take 1 [...] therapy needed for n mouth Cancer pain. [place] sucralfate 2022- No Ulcerative 1000mg Take 10 [...] Suraj so tic therapy day. n Cancer [place] xyloxylin 2022- No Ulcerative 10mL Swish and [facility] oral -18 01-20 oral swallow 10 ity of suspension 00:00: 00:00 mucositis mL every 6 [place] (AMB-CMPD) 00 :00 due to (six) MD antineoplas hours as [place] rso tic therapy needed for n mouth Cancer pain. [place] oxyCODONE-a 2022- No Neoplasm 1{tbl} Take 1 [facility] cetaminophe 01-18- related tablet by ity of n 00:00: [...] therapy needed for n mouth Cancer pain. [place] sucralfate 2022- No Ulcerative 1000mg Take 10 mL [facility] (CARAFATE) 3-20 -20 oral (1,000 mg) it y of 100 mg/mL 00:00: 00:00 mucositis by mouth 4 [place] suspension 00 :00 due to (four) MD antineoplas times a Suraj so tic therapy day. n Cancer [place] metoprolol 2022- No Hypertensio 50mg Take 1 [facility] tartrate 01-18- n tablet (50 ity of (LOPRESSOR) 00:00: 00:00 mg) by [place] as 50 mg 00 :00 mouth MD tablet twice [place] daily for n 30 days. Cancer Center sucralfate 2022- No Ulcerative 1000mg Take 10 mL [facility] (CARAFATE) 01-18- oral (1,000 mg) it y of 100 mg/mL 00:00: 00:00 mucositis by mouth 4 [place] suspension 00 :00 due to (four) MD antineoplas times a Suraj so tic therapy day. n Cancer Center xyloxylin 2022- No Ulcerative 10mL Swish and [facility] oral 01-18- oral swallow 10 ity of suspension 00:00: [...] No Neoplasm 1{tbl} Take 1 [facility] cetaminophe 01-01 related tablet by ity of n 00:00: 00:00 pain mouth [place] (Percocet) 00 :00 (acute) every 4 MD 5 mg-325 mg (chronic) (four) A nderso per tablet hours as n needed for Cancer moderate Center pain. oxyCODONE-a 2022- No Neoplasm 1{tbl} Take 1 [facility] cetaminophe -01-12 related tablet by ity of n 00:00: 00:00 pain mouth [place] (Percocet) 00 :00 (acute) every 4 MD 5 mg-325 mg (chronic) (four) A nderso per tablet hours as n needed for Cancer moderate Center pain. oxyCODONE-a 2022- No Neoplasm 1{tbl} Take 1 [facility] cetaminophe 01-01 related tablet by ity of n 00:00: 00:00 pain mouth [place] (Percocet) 00 :00 (acute) every 4 MD 5 mg-325 mg (chronic) (four) A nderso per tablet hours as n needed for Cancer moderate Center pain. oxyCODONE-a 2022- No Neoplasm 1{tbl} Take 1 [facility] cetaminophe 01-01 related tablet by ity of n 00:00: 00:00 pain mouth [place] (Percocet) 00 :00 (acute) every 4 MD 5 mg-325 mg (chronic) (four) A nderso per tablet hours as n needed for Cancer moderate Center pain. cyclobenzap No Cancer 10mg Take 1 U nivers rine 12-3020 associated tablet (10 it y of (FLEXERIL) [...] for Center muscle spasms (neck pain). cyclobenzap 2022-2022- No Cancer 10mg Take 1 U nivers [...] for Center muscle spasms (neck pain). pseudoephed 2022-2022- No Cancer 30mg Take 1 U nivers rine 12-30-14 associated tablet (30 it y of (Sudafed) 00:00: 00:00 pain mg) by [place] 30 mg 00 :00 mouth 2 MD tablet (two) Anderso times a n day as Cancer needed for Center congestion . pseudoephed 2022-2022- No Cancer 30mg Take 1 U nivers rine 12-30-14 associated tablet (30 it y of (Sudafed) 00:00: 00:00 pain mg) by [place] 30 mg 00 :00 mouth 2 MD tablet (two) Anderso times a n day as Cancer needed for Center congestion . pseudoephed 2022-0 2022- No Cancer 30mg Take 1 U nivers rine 3-11 03-14 associated tablet (30 it y of (Sudafed) 00:00: 00:00 pain mg) by [place] 30 mg 00 :00 mouth 2 MD tablet (two) Anderso times a n day as Cancer needed for Center congestion . pseudoephed 2022-0 202- No Cancer 30mg Take 1 U nivers rine 3-01 03-14 associated tablet (30 it y of [...] Cancer catheter Center daily as directed. sodium 2022-0 2022- No Adenoid Inject 10 Un ally chloride 2-22 04-18 cystic mL (1 ity of (NS) 0.9% 00:00: 00:00 carcinoma syringe) [place] flush 00 :00 of into each MD syringe 10 nasopharynx lumen of Anderso mL , NOS central n venous Cancer catheter Center daily as directed. sodium 2023-2022- No Adenoid Inject 10 Un ally chloride 222 04-18 cystic mL (1 ity of (NS) 0.9% 00:00: 00:00 carcinoma syringe) [place] flush 00 :00 of into each MD syringe 10 nasopharynx lumen of Anderso mL , NOS central n venous Cancer catheter Center daily as directed. ondansetron 2022- No Adenocarcin 8mg Dissolve 1 Univers (ZOFRAN-ODT 12-1817 yanely of tablet (8 ity of ) 8 mg 00:00: 00:00 nasopharynx mg) on the [place] disintegrat 00 :00 tongue MD ing tablet every 8 Lauri o (eight) n hours as Cancer needed for Center nausea. ondansetron 2022-2022- No Adenocarcin 8mg Dissolve 1 Univers (ZOFRAN-ODT 12-18-17 yanely of tablet (8 ity of ) 8 mg 00:00: 00:00 nasopharynx mg) on the [place] disintegrat 00 :00 tongue MD ing tablet every 8 Lauri o (eight) n hours as Cancer needed for Center nausea. ondansetron 2022-2022- No Adenocarcin 8mg Dissolve 1 Univers (ZOFRAN-ODT 12-18-17 yanely of tablet (8 ity of ) 8 mg 00:00: 00:00 nasopharynx mg) on the [place] disintegrat 00 :00 tongue MD ing tablet every 8 Lauri o (eight) n hours as Cancer needed for Center nausea. ondansetron 2022-2022- No Adenocarcin 8mg Dissolve 1 Univers (ZOFRAN-ODT 12-1817 yanely of tablet (8 ity of ) 8 mg 00:00: 00:00 nasopharynx mg) on the [place] disintegrat 00 :00 tongue MD ing tablet every 8 Lauri o (eight) n hours as Cancer needed for Center nausea. prochlorper 2022-0 Yes Adenoid 10mg Take 1 U nivers azine 2-16 cystic tablet (10 ity of (Compazine) 00:00: carcinoma mg) by [place] 10 mg 00 of mouth MD tablet nasopharynx every 6 And erso , NOS (six) n hours as Cancer needed for Center nausea or vomiting (if not controlled by Ondansetro n). prochlorper 2023-0 Yes Adenoid 10mg Take 1 U nivers azine 2-16 cystic tablet (10 ity of (Compazine) 00:00: carcinoma mg) by [place] 10 mg 00 of mouth MD tablet nasopharynx every 6 And erso , NOS (six) n hours as Cancer needed for Center nausea or vomiting (if not controlled by Ondansetro n). prochlorper 2023-0 Yes Adenoid 10mg Take 1 U nivers azine 2-16 cystic tablet (10 ity of (Compazine) 00:00: carcinoma mg) by [place] 10 mg 00 of mouth MD tablet nasopharynx every 6 And erso , NOS (six) n hours as Cancer needed for Center nausea or vomiting (if not controlled by Ondansetro n). prochlorper 2023-0 Yes Adenoid 10mg Take 1 U nivers azine 2-16 cystic tablet (10 ity of (Compazine) 00:00: carcinoma mg) by [place] 10 mg 00 of mouth MD tablet nasopharynx every 6 And erso , NOS (six) n hours as Cancer needed for Center nausea or vomiting (if not controlled by Ondansetro n). ondansetron 3-0 2022- No Adenoid 8mg Take 1 Univers (ZOFRAN) 8 12-17-06 cystic tablet (8 i ty of mg tablet 00:00: 00:00 carcinoma mg) by [place] 00 :00 of mouth MD nasopharynx every 8 Suraj so , NOS (eight) n hours as Cancer needed for Center nausea or vomiting. ondansetron 3-0 2022- No Adenoid 8mg Take 1 Univers (ZOFRAN) 8 12-17-06 cystic tablet (8 i ty of mg tablet 00:00: 00:00 carcinoma mg) by [place] 00 :00 of mouth MD nasopharynx every 8 Suraj so , NOS (eight) n hours as Cancer needed for Center nausea or vomiting. ondansetron 2023-0 2022- No Adenoid 8mg Take 1 Univers (ZOFRAN) 8 12-17-06 cystic tablet (8 i ty of mg tablet 00:00: 00:00 carcinoma mg) by [place] 00 :00 of mouth MD nasopharynx every 8 Suraj so , NOS (eight) n hours as Cancer needed for Center nausea or vomiting. ondansetron 2022- No Adenoid 8mg Take 1 Univers (ZOFRAN) 8 16 04-06 cystic tablet (8 i ty of mg tablet 00:00: 00:00 carcinoma mg) by [place] 00 :00 of mouth nasopharynx every 8 Suraj so , NOS (eight) n hours as Cancer needed for Center nausea or vomiting. fluoride, 2022- No Adenoid Apply to Univers sodium, 215 -14 cystic teeth ity of (DENTAGEL) 00:00: 00:00 carcinoma daily for [place] 1.1% dental 00 :00 of 30 days. MD fairchild nasophMYLA Workman [facility] fluoride, 2022- No Adenoid Apply to Univers sodium, 215 -14 cystic teeth ity of (DENTAGEL) 00:00: 00:00 carcinoma daily for [place] 1.1% dental 00 :00 of 30 days. MD gurinder arellanoophMYLA Workman [facility] fluoride, 2022- No Adenoid Apply to Univers sodium, 15 -14 cystic teeth ity of (DENTAGEL) 00:00: 00:00 carcinoma daily for [place] 1.1% dental 00 :00 of 30 days. MYLA Flannery [facility] fluoride, 2022- No Adenoid Apply to Univers sodium, 215 -14 cystic teeth ity of (DENTAGEL) 00:00: 00:00 carcinoma daily for [place] 1.1% dental 00 :00 of 30 days. MD gurinder arellanoophMYLA Workman [facility] celecoxib 2022- No Headache, 200mg Take 1 Univers (CeleBREX) 12-16 not capsule ity o f 200 mg 00:00: 00:00 otherwise (200 mg) [place] capsule 00 :00 specified by mouth daily. Liane olivier [facility] celecoxib 2022- No Headache, 200mg Take 1 Univers (CeleBREX) 12-16 not capsule ity o f 200 mg 00:00: 00:00 otherwise (200 mg) [place] capsule 00 :00 specified [facility] Headache, 200mg Take 1 Univers (CeleBREX) 12-16 not capsule ity o f 200 mg 00:00: 00:00 otherwise (200 mg) [place] capsule 00 :00 specified by mouth MD daily. [facility] celecoxib 2022- No Headache, 200mg Take 1 Univers (CeleBREX) 12-16 not capsule ity o f 200 mg 00:00: 00:00 otherwise (200 mg) [place] capsule 00 :00 specified by mouth MD daily. [facility] Victoza Yes Type 2 1.8mg Inject 0.3 U nivers 2-Patrick 0.6 2-14 diabetes mL (1.8 ity of mg/0.1 mL 00:00: mellitus mg) under [place] (18 mg/3 00 without the skin MD mL) pnij complicatio daily. An derso injection [facility] Yes Type 2 1.8mg Inject 0.3 U nivers 2-Patrick 0.6 2-14 diabetes mL (1.8 ity of mg/0.1 mL 00:00: mellitus mg) under [place] (18 mg/3 00 without the skin MD mL) pnij complicatio daily. An derso injection [facility] Yes Type 2 1.8mg Inject 0.3 U nivers 2-Patrick 0.6 2-14 diabetes mL (1.8 ity of mg/0.1 mL 00:00: mellitus mg) under [place] (18 mg/3 00 without the skin MD mL) pnij complicatio daily. [facility] Victoza Yes Type 2 1.8mg Inject 0.3 U nivers 2-Patrick 0.6 2-14 diabetes mL (1.8 ity of mg/0.1 mL 00:00: mellitus mg) under [place] (18 mg/3 00 without the skin MD mL) pnij complicatio daily. [facility] BD Devorah 2nd 2022- No Type 2 1{devic Inject 1 Univers Gen Pen 12-15 diabetes e} Device ity o f Needle 32 00:00: 00:00 mellitus under the [place] gauge x 00 :00 without skin 3 MD 32" ndle complicatio (three) Anderso n times a n day before Cancer meals. [place] gabapentin 2022- No Headache, 600mg Take 1 Univers (NEURONTIN) 12-15 not tablet ity o f 600 mg 00:00: 00:00 otherwise (600 mg) [place] tablet 00 :00 specified by mouth MD every 8 Anderso (eight) n hours. Cancer [facility] 2022- No Type 2 1{devic Inject 1 Univers Gen Pen 12-15 diabetes e} Device ity o f Needle 32 00:00: 00:00 mellitus under the [place] gauge x 00 :00 without skin 3 32" ndle complicatio (three) Anderso n times a n day before Cancer meals. [place] gabapentin 2022- No Headache, 600mg Take 1 [facility] (NEURONTIN) 12-15 not tablet ity o f 600 mg 00:00: 00:00 otherwise (600 mg) [place] tablet 00 :00 specified by mouth MD every 8 Anderso (eight) n hours. Cancer [facility] 2022- No Type 2 1{devic Inject 1 [facility] Gen Pen 12-15 diabetes e} Device ity o f Needle 32 00:00: 00:00 mellitus under the [place] gauge x 00 :00 without skin 3 32" ndle complicatio (three) Anderso n times a n day before Cancer meals. [place] gabapentin 2022- No Headache, 600mg Take 1 [facility] (NEURONTIN) 12-15 not tablet ity o f 600 mg 00:00: 00:00 otherwise (600 mg) [place] tablet 00 :00 specified by mouth MD every 8 Anderso (eight) n hours. Cancer [facility] 2022- No Type 2 1{devic Inject 1 [facility] Gen Pen 12-15 diabetes e} Device ity o f Needle 32 00:00: 00:00 mellitus under the [place] gauge x 00 :00 without skin 3 MD 32" ndle complicatio (three) Anderso n times a n day before Cancer meals. [place] gabapentin 2022- No Headache, 600mg Take 1 Univers (NEURONTIN) 12-15- not tablet ity o f 600 mg 00:00: 00:00 otherwise (600 mg) [place] tablet 00 :00 specified by mouth MD every 8 Anderso (eight) n hours. [facility] metoprolol 2022- No Hypertensio 50mg Take 1 [facility] tartrate 12-15-20 n tablet (50 ity of (LOPRESSOR) 00:00: 00:00 mg) by [place] as 50 mg 00 :00 mouth MD tablet twice Anderso daily for n 30 days. [facility] insulin 2022- No Type 2 110U Inject Unive rs regular hum 12-15- diabetes 110-160 ity of U-500 conc 00:00: 00:00 mellitus Units [place] (HumuLIN R 00 :00 without under the M D U-500, complicatio skin 3 Bandar rso Conc, n (three) n Kwikpen) times a Cancer 500 unit/mL day before Ce nter (3 mL) meals. insulin pen metoprolol Hypertensio 50mg Take 1 [facility] tartrate 12-15-20 n tablet (50 ity of (LOPRESSOR) 00:00: 00:00 mg) by [place] as 50 mg 00 :00 mouth MD tablet twice Anderso daily for n 30 days. [facility] insulin 2022- No Type 2 110U Inject Unive rs regular hum 12-15-20 diabetes 110-160 ity of U-500 conc 00:00: 00:00 mellitus Units [place] (HumuLIN R 00 :00 without under the M D U-500, complicatio skin 3 Bandar rso Conc, n (three) n Kwikpen) times a Cancer 500 unit/mL day before Ce nter (3 mL) meals. insulin pen metoprolol No Hypertensio 50mg Take 1 [facility] tartrate 12-15-20 n tablet (50 ity of (LOPRESSOR) 00:00: 00:00 mg) by [place] as 50 mg 00 :00 mouth MD tablet twice Anderso daily for n 30 days. [facility] insulin Type 2 110U Inject Unive rs regular [...] nter (3 mL) meals. insulin pen oxyCODONE-a 2022- No Neoplasm 1{tbl} Take 1 [...] needed for Cancer moderate Center pain. oxyCODONE-a 2022- No Neoplasm 1{tbl} Take 1 [facility] cetaminophe 12-15 related tablet by ity of n 00:00: 00:00 pain mouth [place] (Percocet) 00 :00 (acute) every 4 MD 5 mg-325 mg (chronic) (four) A nderso per tablet hours as n needed for Cancer moderate Center pain. oxyCODONE-a 2022- No Neoplasm 1{tbl} [...] Cancer breakfast Center for 30 days. insulin No Type 2 110U Inject 110 [...] Bere 2 mg tablet 00 :00 mouth twice Anderso daily. n [facility] dexamethaso 2022- No Adenocarcin 2mg Take 1 Univers ne 12-05 yanely of tablet (2 ity of (DECADRON) 00:00: 00:00 nasopharynx mg) by [place] 2 mg tablet 00 :00 mouth twice Anderso daily. n [facility] dexamethaso 2022-2022- No Adenocarcin 2mg Take 1 Univers ne 12-05 03-14 yanely of tablet (2 ity of (DECADRON) 00:00: 00:00 nasopharynx mg) by [place] 2 mg tablet 00 :00 mouth MD twice Anderso daily. [facility] dexamethaso 2022-2022- No Adenocarcin 2mg Take 1 Univers ne 12-05 03-14 yanely of tablet (2 ity of (DECADRON) 00:00: 00:00 nasopharynx mg) by [place] 2 mg tablet 00 :00 mouth MD twice Anderso daily. [facility] HYDROmorpho 2022- No Adenocarcin 2mg Take 1 Univers ne 12-02 02-14 yanely of tablet (2 ity of (DILAUDID) 00:00: 00:00 nasopharynx mg) by [place] 2 mg tablet 00 :00 mouth MD every 4 Anderso (four) n hours as Cancer needed Center (cancer pain). HYDROmorpho 2022-2022- No Adenocarcin 2mg Take 1 Univers ne 12-02 02-14 yanely of tablet (2 ity of (DILAUDID) 00:00: 00:00 nasopharynx mg) by [place] 2 mg tablet 00 :00 mouth MD every 4 Anderso (four) n hours as Cancer needed Center (cancer pain). HYDROmorpho 2022- No Adenocarcin 2mg Take 1 Univers ne 12-02 02-14 yanely of tablet (2 ity of (DILAUDID) 00:00: 00:00 nasopharynx mg) by [place] 2 mg tablet 00 :00 mouth MD every 4 Anderso (four) n hours as Cancer needed Center (cancer pain). HYDROmorpho 2022-0 2022- No Adenocarcin 2mg Take 1 Univers ne 2 02-14 yanely of tablet (2 ity of (DILAUDID) 00:00: 00:00 nasopharynx mg) by [place] 2 mg tablet 00 :00 mouth MD every 4 Anderso (four) n hours as Cancer needed Center (cancer pain). ondansetron 2022- No Adenocarcin 8mg Dissolve 1 Univers (ZOFRAN-ODT 11-26 02-17 yanely of tablet (8 ity of [...] No Adenocarcin 8mg Dissolve 1 Univers (ZOFRAN-ODT 11-26 yanely of tablet (8 ity of ) 8 mg 00:00: 00:00 nasopharynx mg) on the [place] disintegrat 00 :00 tongue MD ing tablet every 8 Lauri o (eight) n hours as Cancer needed for Center nausea. ondansetron 2022- No Adenocarcin 8mg Dissolve 1 Univers (ZOFRAN-ODT 11-26 yanely of tablet (8 ity of ) [...] Pain. Indication s: chronic pain HYDROcodone 2022- Yes 2745 1{tbl} Take 1 Un ally -acetaminop 1-18 tablet by ity of hen 7.5-325 00:00: mouth [place] mg per 00 every 6 Medical tablet (six) Branch hours as needed for Pain. Indication s: chronic pain colchicine 2022- Yes [id number] .6mg Take 1 U nivers 0.6 mg 1-18 tablet by ity of tablet 00:00: mouth in [place] 00 the Medical morning. Branch HYDROcodone 2022- Yes 2745 1{tbl} Take 1 Un ally -acetaminop 1-18 tablet by ity of hen 7.5-325 00:00: mouth [place] mg per 00 every 6 Medical tablet (six) Branch hours as needed for Pain. Indication s: chronic pain colchicine 2022-0 Yes [id number] .6mg Take 1 U nivers 0.6 mg 1-18 tablet by ity of tablet 00:00: mouth in [place] 00 the Medical morning. Branch colchicine 2022-0 Yes [id number] .6mg Take 1 U nivers 0.6 mg 1-18 tablet by ity of tablet 00:00: mouth in [place] the Medical morning. Branch colchicine 2022-0 Yes [id number] .6mg Take 1 U nivers 0.6 mg 1-18 tablet by ity of tablet 00:00: mouth in [place] the Medical morning. Branch colchicine 2022-0 Yes [id number] .6mg Take 1 U nivers 0.6 mg 1-18 tablet by ity of tablet 00:00: mouth in [place] the Medical morning. Branch colchicine 2022-0 Yes [id number] .6mg Take 1 U nivers 0.6 mg 1-18 tablet by ity of tablet 00:00: mouth in [place] the Medical morning. Branch colchicine 2022-0 Yes [id number] .6mg Take 1 U nivers 0.6 mg 1-18 tablet by ity of tablet 00:00: mouth in [place] the Medical morning. Branch colchicine 2022-0 Yes [id number] .6mg Take 1 U nivers 0.6 mg 1-18 tablet by ity of tablet 00:00: mouth in [place] the Medical morning. Branch HYDROcodone 2022-2022- No 2745 1{tbl} Take 1 U nivers -acetaminop 1-18 12-24 tablet by it y of hen 7.5-325 00:00: 00:00 mouth [place] mg per 00 :00 every 6 Medical tablet (six) Branch hours as needed for Pain. Indication s: chronic pain HumuLIN 2022-2022- No Univers 70/30 U-100 11-16 ity of Insulin 100 00:00: 00:00 [place] unit/mL 00 :00 (70-30) Anderso injection [facility] HumuLIN 2022- No Univers 70/30 U-100 11-16 ity of Insulin 100 00:00: 00:00 [place] unit/mL [facility] [place] Hum[facility]- No Univers 70/30 U-100 11-16 ity of Insulin 100 00:00: 00:00 [place] unit/mL 00 [facility] HumuLIN 2022- No Univers 70/30 U-100 11-16 ity of Insulin 100 00:00: 00:00 [place] unit/mL 00 :00 (70-30) [facility] injection [facility] HYDROCHLORO 2022-0 Yes [id number] 12.5mg TAKE 1 Univers THIAZIDE 1-09 CAPSULE BY ity o f 12.5 mg 00:00: MOUTH [place] capsule 00 DAILY Medical Branch LISINOPRIL 2022-0 Yes [id number] TAKE 1/2 Univers 40 mg 1-09 TABLET BY ity of tablet 00:00: MOUTH [place] 00 TWICE Medical DAILY Branch HYDRALAZINE 2022-0 Yes [id number] TAKE 1 Univers 100 mg 1-09 TABLET BY ity of tablet 00:00: MOUTH [place] 00 THREE Medical TIMES Branch DAILY HYDROCHLORO 3-0 Yes [id number] 12.5mg TAKE 1 Univers THIAZIDE 1-09 CAPSULE BY ity o f 12.5 mg 00:00: MOUTH [place] capsule 00 DAILY Medical Branch LISINOPRIL 3-0 Yes [id number] TAKE 1/2 Univers 40 mg 1-09 TABLET BY ity of tablet 00:00: MOUTH [place] 00 TWICE Medical DAILY Branch HYDRALAZINE 3-0 Yes [id number] TAKE 1 Univers 100 mg 1-09 TABLET BY ity of tablet 00:00: MOUTH [place] 00 THREE Medical TIMES Branch DAILY HYDROCHLORO 3-0 Yes [id number] 12.5mg TAKE 1 Univers THIAZIDE 1-09 CAPSULE BY ity o f 12.5 mg 00:00: MOUTH [place] capsule 00 DAILY Medical Branch LISINOPRIL 2023-0 Yes [id number] TAKE 1/2 Univers 40 mg 1-09 TABLET BY ity of tablet 00:00: MOUTH [place] 00 TWICE Medical DAILY Branch HYDRALAZINE 2023-0 Yes [id number] TAKE 1 Univers 100 mg 1-09 TABLET BY ity of tablet 00:00: MOUTH [place] 00 THREE Medical TIMES Branch DAILY HYDROCHLORO 2023-0 Yes [id number] 12.5mg TAKE 1 Univers THIAZIDE 1-09 CAPSULE BY ity o f 12.5 mg 00:00: MOUTH [place] capsule 00 DAILY Medical Branch LISINOPRIL 2023-0 Yes [id number] TAKE 1/2 Univers 40 mg 1-09 TABLET BY ity of tablet 00:00: MOUTH [place] 00 TWICE Medical DAILY Branch HYDRALAZINE 2023-0 Yes [id number] TAKE 1 Univers 100 mg 1-09 TABLET BY ity of tablet 00:00: MOUTH [place] THREE Medical TIMES Branch DAILY HYDROCHLORO 3-0 Yes [id number] 12.5mg TAKE 1 Univers THIAZIDE 1-09 CAPSULE BY ity o f 12.5 mg 00:00: MOUTH [place] capsule 00 DAILY Medical Branch LISINOPRIL 2022-0 Yes [id number] TAKE 1/2 Univers 40 mg 1-09 TABLET BY ity of tablet 00:00: MOUTH TWICE Medical DAILY Branch HYDRALAZINE 3-0 Yes [id number] TAKE 1 Univers 100 mg 1-09 TABLET BY ity of tablet 00:00: MOUTH THREE Medical TIMES Branch DAILY HYDROCHLORO 3-0 Yes [id number] 12.5mg TAKE 1 Univers THIAZIDE 1-09 CAPSULE BY ity o f 12.5 mg 00:00: MOUTH [place] capsule 00 DAILY Medical Branch LISINOPRIL 3-0 Yes [id number] TAKE 1/2 Univers 40 mg 1-09 TABLET BY ity of tablet 00:00: MOUTH TWICE Medical DAILY Branch HYDRALAZINE 2023-0 Yes [id number] TAKE 1 Univers 100 mg 1-09 TABLET BY ity of tablet 00:00: MOUTH THREE Medical TIMES Branch DAILY HYDROCHLORO 3-0 Yes [id number] 12.5mg TAKE 1 Univers THIAZIDE 1-09 CAPSULE BY ity o f 12.5 mg 00:00: MOUTH [place] capsule 00 DAILY Medical Branch LISINOPRIL 2023-0 Yes [id number] TAKE 1/2 Univers 40 mg 1-09 TABLET BY ity of tablet 00:00: MOUTH [place] 00 TWICE Medical DAILY Branch HYDRALAZINE 2023-0 Yes [id number] TAKE 1 Univers 100 mg 1-09 TABLET BY ity of tablet 00:00: MOUTH [place] THREE Medical TIMES Branch DAILY HYDROCHLORO 2023-0 Yes [id number] 12.5mg TAKE 1 Univers THIAZIDE 1-09 CAPSULE BY ity o f 12.5 mg 00:00: MOUTH [place] capsule 00 DAILY Medical Branch LISINOPRIL 2023-0 Yes [id number] TAKE 1/2 Univers 40 mg 1-09 TABLET BY ity of tablet 00:00: MOUTH [place] 00 TWICE Medical DAILY Branch HYDRALAZINE 2022-0 Yes [id number] TAKE 1 Univers 100 mg 1-09 TABLET BY ity of tablet 00:00: MOUTH [place] 00 THREE Medical TIMES Branch DAILY HYDROCHLORO 2022-0 Yes [id number] 12.5mg TAKE 1 Univers THIAZIDE 1-09 CAPSULE BY ity o f 12.5 mg 00:00: MOUTH [place] capsule 00 DAILY Medical Branch LISINOPRIL 2022-0 Yes [id number] TAKE 1/2 Univers 40 mg 1-09 TABLET BY ity of tablet 00:00: MOUTH [place] 00 TWICE Medical DAILY Branch HYDRALAZINE 2022-0 Yes [id number] TAKE 1 Univers 100 mg 1-09 TABLET BY ity of tablet 00:00: MOUTH [place] THREE Medical TIMES Branch DAILY HYDROCHLORO 2022-0 Yes [id number] 12.5mg TAKE 1 Univers THIAZIDE 1-09 CAPSULE BY ity o f 12.5 mg 00:00: MOUTH [place] capsule 00 DAILY Medical Branch LISINOPRIL 2022-0 Yes [id number] TAKE 1/2 Univers 40 mg 1-09 TABLET BY ity of tablet 00:00: MOUTH [place] 00 TWICE Medical DAILY Branch HYDRALAZINE 2022-0 Yes [id number] TAKE 1 [facility] 100 mg 1-09 TABLET BY ity of tablet 00:00: MOUTH [place] THREE Medical TIMES Branch DAILY HYDROCHLORO 3-0 Yes [id number] 12.5mg TAKE 1 [facility] THIAZIDE 1-09 CAPSULE BY ity o f 12.5 mg 00:00: MOUTH [place] capsule 00 DAILY Medical Branch LISINOPRIL 3-0 Yes [id number] TAKE 1/2 [facility] 40 mg 1-09 TABLET BY ity of tablet 00:00: MOUTH [place] 00 TWICE Medical DAILY Branch HYDRALAZINE 2022-0 Yes [id number] TAKE 1 [facility] 100 mg 1-09 TABLET BY ity of tablet 00:00: MOUTH [place] 00 THREE Medical TIMES Branch DAILY hydroCHLORO 2023-0 3- No 12.5mg 1 capsule [facility] thiazide 1-09 03-23 (12.5 mg) ity o f (MICROZIDE) 00:00: 00:00 [place] 12.5 mg 00 :00 morning. MD capsule [facility] hydroCHLORO 2022- No 12.5mg 1 capsule [facility] thiazide 11-09 (12.5 mg) ity o f (MICROZIDE) 00:00: 00:00 [place] 12.5 mg 00 :00 morning. MD capsule [facility] hydroCHLORO 2022- No 12.5mg 1 capsule [facility] thiazide 11-09 (12.5 mg) ity o f (MICROZIDE) 00:00: 00:00 [place] 12.5 mg 00 :00 morning. MD capsule [facility] hydroCHLORO No 12.5mg 1 capsule [facility] thiazide 11-09 (12.5 mg) ity o f (MICROZIDE) 00:00: 00:00 [place] 12.5 mg 00 :00 morning. MD capsule [facility] cloNIDine 2022- No TAKE 1 Unive rs HCl 11-09-20 TABLET BY ity of (CATAPRES) 00:00: 00:00 MOUTH [place] 0.2 mg 00 :00 THREE MD tablet TIMES Anderso DAILY [facility] cloNIDine 2022- No TAKE 1 Unive rs HCl 11-09-20 TABLET BY ity of (CATAPRES) 00:00: 00:00 MOUTH [place] 0.2 mg 00 :00 THREE MD tablet TIMES Anderso DAILY [facility] cloNIDine 2022- No TAKE 1 Unive rs HCl 11-09-20 TABLET BY ity of (CATAPRES) 00:00: 00:00 MOUTH [place] 0.2 mg 00 :00 THREE MD tablet TIMES Anderso DAILY [facility] cloNIDine 2022- No TAKE 1 Unive rs HCl 11-09-20 TABLET BY ity of (CATAPRES) 00:00: 00:00 MOUTH [place] 0.2 mg 00 :00 THREE MD tablet TIMES Anderso DAILY [facility] hydrocortis 2022- No UNWRAP AND Univers one 11-06 INSERT ONE ity of (ANUSOL-HC) 00:00: 00:00 (1) [place] 25 mg 00 :00 SUPPOSITOR MD suppository Y IN THE [place] RECTUM n TWICE A Cancer DAY. [facility]- No UNWRAP AND Univers one 11-06 INSERT ONE ity of (ANUSOL-HC) 00:00: 00:00 (1) [place] 25 mg 00 :00 SUPPOSITOR MD suppository Y IN THE [place] RECTUM n TWICE A Cancer DAY. [facility] 2022- No UNWRAP AND Univers one 11-06 INSERT ONE ity of (ANUSOL-HC) 00:00: 00:00 (1) [place] 25 mg 00 :00 SUPPOSITOR MD suppository Y IN THE [place] RECTUM n TWICE A Cancer DAY. [facility] 2022- No UNWRAP AND Univers one 11-06 INSERT ONE ity of (ANUSOL-HC) 00:00: 00:00 (1) [place] 25 mg 00 :00 SUPPOSITOR MD suppository Y IN THE [place] RECTUM n TWICE A Cancer DAY. [place] METOPROLOL Yes TAKE 1 Unive rs TARTRATE [...] 2022- No TAKE 1 Univ ers TARTRATE 1-02-24 TABLET BY ity o f 100 mg 00:00: 00:00 MOUTH [place] tablet 00 :00 TWICE Medical DAILY Branch metoprolol 2022- No TAKE 1 Univ ers tartrate 11-03 TABLET BY ity o f (LOPRESSOR) 00:00: 00:00 MOUTH [place] 100 mg 00 :00 TWICE MD tablet DAILY [facility] metoprolol 2022- No TAKE 1 Univ ers tartrate 11-03 TABLET BY ity o f (LOPRESSOR) 00:00: 00:00 MOUTH [place] 100 mg 00 :00 TWICE MD tablet DAILY [facility] metoprolol 2022- No TAKE 1 Univ ers tartrate 11-03 TABLET BY ity o f (LOPRESSOR) 00:00: 00:00 MOUTH [place] 100 mg 00 :00 TWICE MD tablet DAILY [facility] metoprolol 2022- No TAKE 1 Univ ers tartrate 11-03 TABLET BY ity o f (LOPRESSOR) 00:00: 00:00 MOUTH [place] 100 mg 00 :00 TWICE MD tablet DAILY [facility] METOPROLOL 2022- No TAKE 1 Univ ers TARTRATE 11-03 TABLET BY ity o f 100 mg 00:00: 00:00 MOUTH [place] tablet 00 :00 TWICE Medical DAILY Branch cetirizine 2021-11- No TAKE 1 Univ ers (ZyrTEC) 10 01-12 TABLET BY it y of mg tablet 00:00: 00:00 MOUTH [place]CE [place] 00 :00 DAILY MD NEEDED FOR [facility] cetirizine 2021-11- No TAKE 1 Univ ers (ZyrTEC) 10 01-12 TABLET BY it y of mg tablet 00:00: 00:00 MOUTH [place]CE [place] 00 :00 DAILY MD NEEDED FOR [facility] cetirizine 2021-11- No TAKE 1 [facility] ([facility]) 10 -14 TABLET BY it y of mg tablet 00:00: 00:00 MOUTH [place]CE [place] 00 :00 DAILY MD NEEDED FOR [place]ER[facility] cetirizine 2021-11- No TAKE 1 [facility] ([facility]) 10 -14 TABLET BY it y of mg tablet 00:00: 00:00 MOUTH [place]CE [place] 00 :00 DAILY MD NEEDED FOR [facility] ALLERGIES [facility] gabapentin 2021-11 Yes [id number] 600mg Take 1 [facility] 600 mg 2-21 tablet by ity of tablet 00:00: mouth in [place] 00 the Medical morning Branch and 1 tablet at noon and 1 tablet in the evening. HYDROcodone 2021-11 Yes [id number] 1{tbl} Take 1 Un ally -acetaminop 2-21 tablet by ity of hen 7.5-325 00:00: mouth [place] mg per 00 every 6 Medical tablet (six) Branch hours as needed for Pain. Indication s: chronic pain Diclofenac 2021-11 Yes [id number] Apply to Univers Sodium 1 % 2-21 area(s) 3 ity of gel 00:00: (three) [place] 00 times Medical daily. Branch gabapentin 2021-11 Yes [id number] 600mg Take 1 [facility] 600 mg 2-21 tablet by ity of tablet 00:00: mouth in [place] 00 the Medical morning Branch and 1 tablet at noon and 1 tablet in the evening. HYDROcodone 2021-11 Yes [id number] 1{tbl} Take 1 Un ally -acetaminop 2-21 tablet by ity of hen 7.5-325 00:00: mouth [place] mg per 00 every 6 Medical tablet (six) Branch hours as needed for Pain. Indication s: chronic pain Diclofenac 2021-11 Yes [id number] Apply to Univers Sodium 1 % 2-21 area(s) 3 ity of gel 00:00: (three) [place] 00 times Medical daily. Branch gabapentin 2021-11 Yes [id number] 600mg Take 1 [facility] 600 mg 2-21 tablet by ity of tablet 00:00: mouth in [place] 00 the Medical morning Branch and 1 tablet at noon and 1 tablet in the evening. HYDROcodone 2021-11 Yes [id number] 1{tbl} Take 1 Un ally -acetaminop 2-21 tablet by ity of hen 7.5-325 00:00: mouth [place] mg per 00 every 6 Medical tablet (six) Branch hours as needed for Pain. Indication s: chronic pain Diclofenac 2021-11 Yes [id number] Apply to Univers Sodium 1 % 2-21 area(s) 3 ity of gel 00:00: (three) [place] 00 times Medical daily. Branch gabapentin 2021-11 Yes [id number] 600mg Take 1 [facility] 600 mg 2-21 [...] Indication s: chronic pain Diclofenac 2021-11 Yes [id number] Apply to Univers Sodium 1 % 2-21 area(s) 3 ity of gel 00:00: (three) [place] 00 times Medical daily. Branch gabapentin 2021-11 Yes [id number] 600mg Take 1 [facility] 600 mg 2-21 [...] Indication s: chronic pain Diclofenac 2021-11 Yes [id number] Apply to Univers Sodium 1 % 2-21 area(s) 3 ity of gel 00:00: (three) [place] 00 times Medical daily. Branch gabapentin 2021-11 Yes [id number] 600mg Take 1 [facility] 600 mg 2-21 [...] Indication s: chronic pain Diclofenac 2021-11 Yes [id number] Apply to Univers Sodium 1 % 2-21 area(s) 3 ity of gel 00:00: (three) [place] 00 times Medical daily. Branch gabapentin 2021-11 Yes [id number] 600mg Take 1 [facility] 600 mg 2-21 tablet by ity of tablet 00:00: mouth in [place] 00 the Medical morning Branch and 1 tablet at noon and 1 tablet in the evening. Diclofenac 2021-11 Yes [id number] Apply to Univers Sodium 1 % 2-21 area(s) 3 ity of gel 00:00: (three) [place] 00 times Medical daily. Branch gabapentin 2021-11 Yes [id number] 600mg Take 1 [facility] 600 mg 2-21 tablet by ity of tablet 00:00: mouth in [place] 00 the Medical morning Branch and 1 tablet at noon and 1 tablet in the evening. Diclofenac 2021-11 Yes [id number] Apply to Univers Sodium 1 % 2-21 area(s) 3 ity of gel 00:00: (three) [place] 00 times Medical daily. Branch gabapentin 2021-11 Yes [id number] 600mg Take 1 [facility] 600 mg 2-21 tablet by ity of tablet 00:00: mouth in [place] 00 the Medical morning Branch and 1 tablet at noon and 1 tablet in the evening. Diclofenac 2021-11 Yes [id number] Apply to Univers Sodium 1 % 2-21 area(s) 3 ity of gel 00:00: (three) [place] 00 times Medical daily. Branch gabapentin 2021-11 Yes [id number] 600mg Take 1 [facility] 600 mg 2-21 tablet by ity of tablet 00:00: mouth in [place] 00 the Medical morning Branch and 1 tablet at noon and 1 tablet in the evening. Diclofenac 2021-11 Yes [id number] Apply to Univers Sodium 1 % 2-21 area(s) 3 ity of gel 00:00: (three) [place] 00 times Medical daily. Branch gabapentin 2021-11 Yes [id number] 600mg Take 1 [facility] 600 mg 2-21 tablet by ity of tablet 00:00: mouth in [place] 00 the Medical morning Branch and 1 tablet at noon and 1 tablet in the evening. Diclofenac 2021-11 Yes [id number] Apply to Univers Sodium 1 % 2-21 area(s) 3 ity of gel 00:00: (three) [place] 00 times Medical daily. Branch gabapentin 2021-11 Yes [id number] 600mg Take 1 [facility] 600 mg 2-21 tablet by ity of tablet 00:00: mouth in [place] 00 the Medical morning Branch and 1 tablet at noon and 1 tablet in the evening. Diclofenac 2021-11 Yes [id number] Apply to Univers Sodium 1 % 2-21 area(s) 3 ity of gel 00:00: (three) [place] 00 times Medical daily. Branch gabapentin 2021-11 Yes [id number] 600mg Take 1 [facility] 600 mg 2-21 tablet by ity of tablet 00:00: mouth in [place] 00 the Medical morning Branch and 1 tablet at noon and 1 tablet in the evening. Diclofenac 2021-11 Yes [id number] Apply to Univers Sodium 1 % 2-21 area(s) 3 ity of gel 00:00: (three) [place] 00 times Medical daily. Branch gabapentin 2021-11 Yes [id number] 600mg Take 1 [facility] 600 mg 2-21 tablet by ity of tablet 00:00: mouth in [place] 00 the Medical morning Branch and 1 tablet at noon and 1 tablet in the evening. Diclofenac 2021-11 Yes [id number] Apply to Univers Sodium 1 % 2-21 area(s) 3 ity of gel 00:00: (three) [place] 00 times Medical daily. Branch gabapentin 2021-11 Yes [id number] 600mg Take 1 [facility] 600 mg 2-21 tablet by ity of tablet 00:00: mouth in [place] 00 the Medical morning Branch and 1 tablet at noon and 1 tablet in the evening. Diclofenac 2021-11 Yes [id number] Apply to Univers Sodium 1 % 2-21 area(s) 3 ity of gel 00:00: (three) [place] 00 times Medical daily. Branch diclofenac 2021-11- No APPLY Unive rs sodium 2-21 -03 TOPICALLY ity of (Voltaren) 00:00: 00:00 TO THE [place] 1 % gel 00 :00 AFFECTED MD AREA THREE [facility] TIMES n DAILY [facility] diclofenac 2021-11- No APPLY Unive rs sodium 2-21 - TOPICALLY ity of (Voltaren) 00:00: 00:00 TO [...] [place] 00 needed for MD anxiety. [facility] ALPRAZolam 2021-11 Yes every 8 Univ ers (XANAX) 2 2-20 (eight) ity of mg tablet 00:00: hours [place] 00 needed for MD anxiety. [facility] ALPRAZolam 2021-11 Yes every 8 Univ ers (XANAX) 2 2-20 (eight) ity of mg tablet 00:00: hours as [place] 00 needed for MD anxiety. [facility] ALPRAZolam 2021-11 Yes every 8 Univ ers (XANAX) 2 2-20 (eight) ity of mg tablet 00:00: hours as [place] 00 needed for MD anxiety. [facility] albuterol 2021-11 Yes every 6 Unive rs (VENTOLIN 2-19 (six) ity of HFA,PROAIR 00:00: hours as [place] HFA) 90 00 needed. mcg/puff [place] inhaler n [facility] albuterol 2021-11 Yes every 6 Unive rs (VENTOLIN 2-19 (six) ity of HFA,PROAIR 00:00: hours as [place] HFA) 90 00 needed. mcg/puff [place] inhaler n [facility] albuterol 2021-11 Yes every 6 Unive rs (VENTOLIN 2-19 (six) ity of HFA,PROAIR 00:00: hours as [place] HFA) 90 00 needed. mcg/puff [place] inhaler [facility] albuterol 2021-11 Yes every 6 Unive rs (VENTOLIN 2-19 (six) ity of HFA,PROAIR 00:00: hours as [place] HFA) 90 00 needed. MD moss/puff [place] inhaler [facility] spironolact 2021-11- No TAKE 1 Uni vers one 2-19 02-14 TABLET BY ity of (ALDACTONE) 00:00: 00:[place] M[place]TH [place] 25 mg 00 :00 EVERY DAY MD tablet [facility] spironolact 2021-11- No TAKE 1 Uni vers one 2-19 02-14 TABLET BY ity of (ALDACTONE) 00:00: 00:00 MOUTH [place] 25 mg 00 :00 EVERY DAY MD tablet [facility] spironolact 2021-11- No TAKE 1 Uni vers one 2-19 02-14 TABLET BY ity of (ALDACTONE) 00:00: 00:00 MOUTH [place] 25 mg 00 :00 EVERY DAY MD tablet [facility] spironolact 2021-11- No TAKE 1 Uni vers one 2-19 02-14 TABLET BY ity of (ALDACTONE) 00:00: 00:00 MOUTH [place] 25 mg 00 :00 EVERY DAY MD tablet [facility] zolpidem 2021-11 Yes TAKE 1 Univers (AMBIEN) 10 2-17 TABLET BY ity of mg tablet 00:00: M[place]TH [place] 00 BEDTIME MD NEEDED FOR [facility] zolpidem 2021-11 Yes TAKE 1 Univers (AMBIEN) 10 2-17 TABLET BY ity of mg tablet 00:00: MOUTH [place] 00 BEDTIME MD NEEDED FOR [place] INSOMNIA [facility] zolpidem 2021-11 Yes TAKE 1 Univers (AMBIEN) 10 2-17 TABLET BY ity of mg tablet 00:00: MOUTH [place] 00 BEDTIME MD NEEDED FOR [place] INSOMNIA [facility] zolpidem 2021-11 Yes TAKE 1 Univers (AMBIEN) 10 2-17 TABLET BY ity of mg tablet 00:00: MOUTH [place] 00 BEDTIME MD NEEDED FOR [place] INSOMNIA [facility] ondansetron 2021-11 Yes DISSOLVE 1 Univers 4 [...] 00:00: MOUTH [place] 00 EVERY DAY [facility]11 Yes TAKE 1 Univ ers e 2-13 TABLET BY ity of (PROTONIX) 00:00: MOUTH [place] 40 mg EC 00 DAILY tablet [facility] amLODIPine 2021-11 Yes TAKE 1 Unive rs (NORVASC) 5 2-13 TABLET BY ity of mg tablet 00:00: MOUTH [place] 00 EVERY DAY [facility] pantoprazol 2021-11 Yes TAKE 1 Univ ers e 2-13 TABLET BY ity of (PROTONIX) 00:00: MOUTH [place] 40 mg EC 00 DAILY tablet [facility] amLODIPine 2021-11 Yes TAKE 1 Unive rs (NORVASC) 5 2-13 TABLET BY ity of mg tablet 00:00: MOUTH [place] 00 EVERY DAY [facility] pantoprazol 2021-11 Yes TAKE 1 Univ ers e 2-13 TABLET BY ity of (PROTONIX) 00:00: MOUTH [place] 40 mg EC 00 DAILY MD tablet [facility] amLODIPine 2021-11 Yes TAKE 1 Unive rs (NORVASC) 5 2-13 TABLET BY ity of mg tablet 00:00: MOUTH [place] 00 EVERY DAY [facility] pantoprazol 2021-11 Yes TAKE 1 Univ ers e 2-13 TABLET BY ity of (PROTONIX) 00:00: MOUTH [place] 40 mg EC 00 DAILY tablet [facility] dicyclomine 2021-11- No TAKE 1 Uni vers (BENTYL) 10 2-12 03-20 CAPSULE BY i ty of mg capsule 00:00: 00:00 MOUTH [place] 00 :00 EVERY 8 MD HOURS [facility] dicyclomine 2021-11- No TAKE 1 Uni vers (BENTYL) 10 2-12 03-20 CAPSULE BY i ty of mg capsule 00:00: 00:00 MOUTH [place] 00 :00 EVERY 8 MD HOURS [facility] dicyclomine 2021-11- No TAKE 1 Uni vers (BENTYL) 10 2-12 03-20 CAPSULE BY i ty of mg capsule 00:00: 00:00 MOUTH [place] 00 :00 EVERY 8 MD HOURS [facility] dicyclomine 2021-11- No TAKE 1 Uni vers (BENTYL) 10 2-12 03-20 CAPSULE BY i ty of mg capsule 00:00: 00:00 MOUTH [place] 00 :00 EVERY 8 MD HOURS [facility] BD DEVORAH 2021-11 Yes 10mg Take 10 mg Univers GEN PEN 2-05 by mouth. ity of NEEDLE 32 00:00: [place] gauge x 00 Medical 532" [place] Branch BD DEVORAH 2021-11 Yes 10mg [...] 00:00: [place] gauge x 00 Medical 5/32" [facility] BD Devorah 2021-11- No USE Uni vers Gen Pen 12-06 DIRECTED. ity of Needle 32 00:00: 00:00 [place] gauge x 00 :00 MD Mg/[address] [place] [address] BD Devorah 2021-11- No USE Uni vers Gen Pen 12-06 DIRECTED. ity of Needle 32 00:00: 00:00 [place] gauge x 00 :00 MD Mg/[address] [place] [address] BD Devorah 2021-11- No USE Uni vers Gen Pen 12-06 DIRECTED. ity of Needle 32 00:00: 00:00 [place] gauge x 00 :[address] BD Devorah 2021-11- No USE Uni vers Gen Pen 12-06 DIRECTED. ity of Needle 32 00:00: 00:00 [place] gauge x 00 :[address] LISINOPRIL 2021-11 Yes [id number] TAKE 1/2 Univers 40 mg 2-02 TABLET BY ity of tablet 00:00: MOUTH [place] 00 TWICE Medical DAILY Branch LISINOPRIL 2021-11 Yes [id number] TAKE 1/2 Univers 40 mg 2-02 TABLET BY ity of tablet 00:00: MOUTH [place] 00 TWICE Medical DAILY Branch LISINOPRIL 2021-11 Yes [id number] TAKE 1/2 [facility] 40 mg 2-02 TABLET BY ity of tablet 00:00: MOUTH [place] 00 TWICE Medical DAILY Branch LISINOPRIL 2021-11 Yes [id number] TAKE 1/2 Univers 40 mg 2-02 TABLET BY ity of tablet 00:00: MOUTH [place] 00 TWICE Medical DAILY Branch LISINOPRIL 2021-11 Yes [id number] TAKE 1/2 Univers 40 mg 2-02 TABLET BY ity of tablet 00:00: MOUTH [place] 00 TWICE Medical DAILY Branch LISINOPRIL 2021-11- No [id number] TAKE 1/2 Univers 40 mg 2-02 01-09 TABLET BY ity of tablet 00:00: 00:00 MOUTH [place] 00 :00 TWICE Medical DAILY Branch hydrALAZINE 2022-1 2023- No TAKE 1 Uni vers (APRESOLINE 12-02 TABLET BY it y of ) 100 mg 00:00: 00:00 MOUTH [place] tablet 00 :00 THREE MD TIMES Anderso DAILY n [facility] Victoza 2021-11- No ADMINISTER Uni vers 2-Patrick 0.6 12-02 1.8 MG ity of mg/0.1 mL 00:00: 00:00 [place]ER THE [place] ([place] mg/3 00 :00 SKIN EVERY MD mL) pnij DAY [facility] lisinopril 2021-11- No TAKE 1/2 Un ally (PRINIVIL,Z 12-02 TABLET BY it y of ESTRIL) 40 00:00: 00:00 MOUTH [place] mg tablet 00 :00 [facility]ICE [facility]- No USE TWICE Univ ers syringe-nee 12-02 DAILY WITH i ty of dle U-100 1 00:00: 00:00 MEALS. [place] as mL 31 gauge 00 :00 MD [place] 03/16 [facility]ne [facility] hydrAL[facility] 2021-11- No TAKE 1 Uni vers (APRESOLINE 12-02 TABLET BY it y of ) 100 mg 00:00: 00:00 MOUTH [place] tablet 00 :00 THREE MD TIMES Anderso DAILY n [facility] Victoza 2021-11- No ADMINISTER Uni vers 2-Patrick 0.6 12-02 1.8 MG ity of mg/0.1 mL 00:00: 00:00 [place]ER [place] ([place] mg/3 00 :00 SKIN EVERY MD mL) [facility] lisinopril 2021-11- No TAKE 1/2 Un ally (PRINIVIL,Z 12-02 TABLET BY it y of ESTRIL) 40 00:00: 00:00 MOUTH [place] mg tablet 00 :00 TWICE [facility] 2021-11- No USE TWICE Univ ers syringe-nee 12-02 DAILY WITH i ty of dle U-100 1 00:00: 00:00 MEALS. [place] mL 31 gauge 00 :00 MD blake 5/16 syrg [facility] hydrALAZINE 2021-11- No TAKE 1 Uni vers (APRESOLINE 12-02 TABLET BY it y of ) 100 mg 00:00: 00:00 MOUTH [place] tablet 00 :00 THREE MD TIMES Anderso DAILY n [facility] Victoza 2021-11- No ADMINISTER Uni vers 2-Patrick 0.6 12-02 1.8 MG ity of mg/0.1 mL 00:00: 00:00 [place]ER [place] ([place] mg/3 00 :00 SKIN EVERY MD mL) pnij DAY Anderso injection [facility] lisinopril 2021-11- No TAKE 1/2 Un ally (PRINIVIL,Z 12-02 TABLET BY it y of ESTRIL) 40 00:00: 00:00 MOUTH [place] mg tablet 00 :00 TWICE MD DAILY [facility] insulin 2021-11- No USE TWICE Univ ers syringe-nee 12-02 DAILY WITH i ty of dle U-100 1 00:00: 00:00 MEALS. [place] mL 31 gauge 00 :00 MD [place] 03/16 adrienne [facility] hydrALAZINE 2021-11- No TAKE 1 Uni vers (APRESOLINE 12-02 TABLET BY it y of ) 100 mg 00:00: 00:00 MOUTH [place] tablet 00 :00 THREE MD TIMES Anderso DAILY [facility] Victoza 2021-11- No ADMINISTER Uni vers 2-Patrick 0.6 12-02 1.8 MG ity of mg/0.1 mL 00:00: 00:00 [place]ER [place] ([place] mg/3 00 :00 SKIN EVERY MD mL) pnij DAY [facility] lisinopril 2021-11- No TAKE 1/2 Un ally (PRINIVIL,Z 12-02 TABLET BY it y of ESTRIL) 40 00:00: 00:00 MOUTH [place] mg tablet 00 :00 [facility]ICE [facility] No USE TWICE Univ ers syringe-nee 12-02 DAILY WITH i ty of dle U-100 1 00:00: 00:00 MEALS. [place] mL 31 gauge 00 :00 MD blake 03/16 adrienne [facility] allopurinol 2021-11- No 100mg Take 100 Univers [...] Indication s: chronic pain metFORMIN 2021-11 Yes [id number] 1000mg Take 1 Univers 1,000 mg 1-21 tablet by ity of tablet 00:00: mouth in [place] the Medical morning Branch and 1 tablet in the evening. Take with meals. HYDROcodone 2021-11 Yes [id number] 1{tbl} Take 1 Un ally -acetaminop 1-21 tablet by ity of hen 7.5-325 00:00: mouth [place] mg per 00 every 6 Medical tablet (six) Branch hours as needed for Pain. Indication s: chronic pain metFORMIN 2021-11 Yes [id number] 1000mg Take 1 Univers 1,000 mg 1-21 tablet by ity of tablet 00:00: mouth in [place] 00 the Medical morning Branch and 1 tablet in the evening. Take with meals. HYDROcodone 2021-11 Yes [id number] 1{tbl} Take 1 Un ally -acetaminop 1-21 tablet by ity of hen 7.5-325 00:00: mouth [place] mg per 00 every 6 Medical tablet (six) Branch hours as needed for Pain. Indication s: chronic pain metFORMIN 2021-11 Yes [id number] 1000mg Take 1 Univers 1,000 mg 1-21 tablet by ity of tablet 00:00: mouth in [place] [address] the Medical morning Branch and 1 tablet in the evening. Take with meals. HYDROcodone 2021-11 Yes [id number] 1{tbl} Take 1 Un ally -acetaminop 1-21 tablet by ity of hen 7.5-325 00:00: mouth [place] mg per 00 every 6 Medical tablet (six) Branch hours as needed for Pain. Indication s: chronic pain metFORMIN 2021-11 Yes [id number] 1000mg Take 1 Univers 1,000 mg 1-21 tablet by ity of tablet 00:00: mouth in [place] [address] the [facility] morning [place] and 1 tablet in the evening. Take with meals. metFORMIN 2021-11 Yes [id number] 1000mg Take 1 Univers 1,000 mg 1-21 tablet by ity of tablet 00:00: mouth in [place] [address] the [facility] morning [place] and 1 tablet in the evening. Take with meals. neomycin-po 2021-11 Yes INSTILL 4 U nivers lymyxin-hyd 1-21 DROPS TO ity of rocortisone 00:00: AFFECTED [place] otic 00 EAR FOUR Medical solution TIMES Branch DAILY metFORMIN 2021-11 Yes [id number] 1000mg Take 1 Univers 1,000 mg 1-21 tablet by ity of tablet 00:00: mouth in [place] [address] the [facility] morning [place] and 1 tablet in the evening. Take with meals. neomycin-po 2021-11 Yes INSTILL 4 U nivers lymyxin-hyd 1-21 DROPS TO ity of rocortisone 00:00: AFFECTED [place] otic 00 EAR FOUR Medical solution TIMES Branch DAILY metFORMIN 2021-11 Yes [id number] 1000mg Take 1 Univers 1,000 mg 1-21 tablet by ity of tablet 00:00: mouth in [place] [address] the [facility] morning [place] and 1 tablet in the evening. Take with meals. neomycin-po 2021-11 Yes INSTILL 4 U nivers lymyxin-hyd 1-21 DROPS TO ity of rocortisone 00:00: AFFECTED [place] otic 00 EAR FOUR Medical solution TIMES Branch DAILY metFORMIN 2021-11 Yes [id number] 1000mg Take 1 Univers 1,000 mg 1-21 tablet by ity of tablet 00:00: mouth in [address] morning [place] and 1 tablet in the evening. Take with meals. neomycin-po 2021-11 Yes INSTILL 4 U nivers lymyxin-hyd 1-21 DROPS TO ity of rocortisone 00:00: AFFECTED [place] otic 00 EAR FOUR Medical solution TIMES Branch DAILY metFORMIN 2021-11 Yes [id number] 1000mg Take 1 Univers 1,000 mg 1-21 tablet by ity of tablet 00:00: mouth in [address] morning [place] and 1 tablet in the evening. Take with meals. neomycin-po 2021-11 Yes INSTILL 4 U nivers lymyxin-hyd 1-21 DROPS TO ity of rocortisone 00:00: AFFECTED [place] otic 00 EAR FOUR Medical solution TIMES Branch DAILY metFORMIN 2021-11 Yes [id number] 1000mg Take 1 Univers 1,000 mg 1-21 tablet by ity of tablet 00:00: mouth in [address] and 1 tablet in the evening. Take with meals. neomycin-po 2021-11 Yes INSTILL 4 U nivers lymyxin-hyd 1-21 DROPS TO ity of rocortisone 00:00: AFFECTED [place] otic 00 EAR FOUR Medical solution TIMES Branch DAILY metFORMIN 2021-11 Yes [id number] 1000mg Take 1 Univers 1,000 mg 1-21 tablet by ity of tablet 00:00: mouth in [address] and 1 tablet in the evening. Take with meals. neomycin-po 2021-11 Yes INSTILL 4 U nivers lymyxin-hyd 1-21 DROPS TO ity of rocortisone 00:00: AFFECTED [place] [facility] 00 EAR FOUR Medical solution TIMES Branch DAILY metFORMIN 2021-11 Yes [id number] 1000mg Take 1 [facility] 1,000 mg 1-21 tablet by ity of tablet 00:00: mouth in [address] and 1 tablet in the evening. Take with meals. neomycin-po 2021-11 Yes INSTILL 4 U nivers lymyxin-hyd 1-21 DROPS TO ity of rocortisone 00:00: [place]FFECTED [place] 00 EAR FOUR Medical solution TIMES Branch DAILY metFORMIN 2021-11 Yes [id number] 1000mg Take 1 [facility] 1,000 mg 1-21 tablet by ity of tablet 00:00: mouth in [place] [address] the Medical morning [place] and 1 tablet in the evening. Take with meals. neomycin-po 2021-11 Yes INSTILL 4 U nivers lymyxin-hyd 1-21 DROPS TO ity of rocortisone 00:00: [place]FFECTED [place] 00 EAR FOUR Medical solution TIMES Branch DAILY metFORMIN 2021-11 Yes [id number] 1000mg Take 1 [facility] 1,000 mg 1-21 tablet by ity of tablet 00:00: mouth in [place] [address] the [facility] morning [place] and 1 tablet in the evening. Take with meals. neomycin-po 2021-11 Yes INSTILL 4 U nivers lymyxin-hyd 1-21 DROPS TO ity of rocortisone 00:00: [place]ECTED [place] 00 EAR FOUR Medical solution TIMES Branch DAILY metFORMIN 2021-11 Yes [id number] 1000mg Take 1 [facility] 1,000 mg 1-21 tablet by ity of tablet 00:00: mouth in [address] morning [place] and 1 tablet in the evening. Take with meals. neomycin-po 2021-11 Yes INSTILL 4 U nivers lymyxin-hyd 1-21 DROPS TO ity of rocortisone 00:00: [place]ED [place] 00 EAR FOUR Medical solution TIMES Branch DAILY metFORMIN 2021-11 Yes [id number] 1000mg Take 1 [facility] 1,000 mg 1-21 tablet by ity of tablet 00:00: mouth in [address] and 1 tablet in the evening. Take with meals. neomycin-po 2021-11 Yes INSTILL 4 U nivers lymyxin-hyd 1-21 DROPS TO ity of rocortisone 00:00: [place]FFECTED [place] 00 EAR FOUR Medical solution TIMES Branch DAILY metFORMIN 2021-11 Yes [id number] 1000mg Take 1 [facility] 1,000 mg 1-21 tablet by ity of tablet 00:00: mouth in [address] morning [place] and 1 tablet in the evening. Take with meals. neomycin-po 2021-11 Yes INSTILL 4 U nivers lymyxin-hyd 1-21 DROPS TO ity of rocortisone 00:00: AFFECTED [place] 00 EAR FOUR Medical solution TIMES Branch DAILY metFORMIN 2021-11 Yes [id number] 1000mg Take 1 [facility] 1,000 mg 1-21 tablet by ity of tablet 00:00: mouth in [place] 00 the Medical morning Branch and 1 tablet in the evening. Take with meals. neomycin-po 2021-11 Yes INSTILL 4 U nivers lymyxin-hyd 1-21 DROPS TO ity of rocortisone 00:00: AFFECTED [place] 00 EAR FOUR Medical solution TIMES Branch DAILY metFORMIN 2021-11 Yes [id number] 1000mg Take 1 [facility] 1,000 mg 1-21 tablet by ity of tablet 00:00: mouth in [place] 00 the Medical morning Branch and 1 tablet in the evening. Take with meals. neomycin-po 2021-11 Yes INSTILL 4 U nivers lymyxin-hyd 1-21 DROPS TO ity of rocortisone 00:00: [place]FFECTED [place] 00 EAR FOUR Medical solution TIMES Branch DAILY colchicine 2021-11- No TAKE 1 Univ ers (COLCRYS) 11-21-20 TABLET BY ity of 0.6 mg 00:00: 00:00 MOUTH [place] tablet 00 :00 DAILY MD Liane olivier [facility] colchicine 2021-11- No TAKE 1 Univ ers (COLCRYS) 11-21-20 TABLET BY ity of 0.6 mg 00:00: 00:00 MOUTH [place] tablet 00 :00 DAILY MD Liane olivier [facility] colchicine 2021-11- No TAKE 1 Univ ers (COLCRYS) 11-21 03-20 TABLET BY ity of 0.6 mg 00:00: 00:00 MOUTH [place] tablet 00 :00 DAILY MD Liane olivier [facility] colchicine 2021-11- No TAKE 1 Univ ers (COLCRYS) 11-21-20 TABLET BY ity of 0.6 mg 00:00: 00:00 MOUTH [place] tablet 00 :00 DAILY MD Liane olivier [facility] metFORMIN 2021-11- No TAKE 1 Unive rs (GLUCOPHAGE 11-21 TABLET BY it y of ) 1000 mg 00:00: 00:00 MOUTH IN [place] tablet 00 :00 THE MD DAVIE Rob AND IN THE n EVENING Cancer WITH MEALS Center metFORMIN 2021-11- No TAKE 1 Unive rs (GLUCOPHAGE 11-21 TABLET BY it y of ) 1000 mg 00:00: 00:00 MOUTH IN [place] as tablet 00 :00 THE MD DAVIE Rob AND IN THE n EVENING Cancer WITH [...] IN [place] tablet 00 :00 THE MD DAVIE [facility] AND IN THE n EVENING Cancer WITH MEALS Center HYDROcodone 2021-11- No [id number] 1{tbl} Take 1 U nivers -acetaminop 1-21 12-21 tablet by it y of hen 7.5-325 00:00: [place] mg per 00 :00 every 6 Medical tablet (six) Branch hours as needed for Pain. Indication s: chronic pain HYDROcodone 2021-11 No [id number] 1{tbl} Take 1 U nivers -acetaminop -21 -21 tablet by it y of hen 7.5-325 00:00: 00:00 [place] mg per 00 :00 every 6 Medical tablet (six) Branch hours as needed for Pain. Indication s: chronic pain Tregy 2021-11 Yes INHALE 1 Univer s Ellipta 1-18 PUFF BY ity of 100-62.5-25 00:00: MOUTH [place] mcg dsdv 00 EVERY DAY MD [facility] 2021-11 Yes INHALE 1 Univer s Ellipta [...] 00 EVERY DAY MD Liane olivier [facility] [place] nitroglycer 2021-11- No PLACE 1 Un ally in 11-18 TABLET ity of (NITROSTAT) 00:00: 00:00 UNDER THE [place] 0.4 mg SL 00 :00 TONGUE MD tablet EVERY 5 [place] MINUTES n FOR CHEST Cancer PAIN. [place] nitroglycer 2021-11- No PLACE 1 Un ally in 11-18 TABLET ity of (NITROSTAT) 00:00: 00:00 UNDER THE [place] 0.4 mg SL 00 :00 TONGUE MD tablet EVERY 5 [place] MINUTES n FOR CHEST Cancer PAIN. [place] nitroglycer 2021-11- No PLACE 1 Un ally in 11-18 TABLET ity of (NITROSTAT) 00:00: 00:00 UNDER THE [place] 0.4 mg SL 00 :00 TONGUE MD tablet EVERY 5 [place] MINUTES n FOR CHEST Cancer PAIN. [place] nitroglycer 2021-11- No PLACE 1 Un ally in 11-18 TABLET ity of (NITROSTAT) 00:00: 00:00 UNDER THE [place] 0.4 mg SL 00 :00 TONGUE MD tablet EVERY 5 [place] MINUTES n FOR CHEST Cancer PAIN. [place] GABAPENTIN 2021-11 Yes [id number] TAKE 1 [facility] 600 mg 1-17 TABLET BY ity of tablet 00:00: MOUTH [place] 00 THREE Medical TIMES Branch DAILY GABAPENTIN 2021- Yes [id number] TAKE 1 [facility] 600 mg 1-17 TABLET BY ity of tablet 00:00: MOUTH [place] 00 THREE Medical TIMES Branch DAILY GABAPENTIN 2021- Yes [id number] TAKE 1 [facility] 600 mg 1-17 TABLET BY ity of tablet 00:00: MOUTH [place] 00 THREE Medical TIMES Branch DAILY GABAPENTIN 2021- Yes [id number] TAKE 1 [facility] 600 mg 1-17 TABLET BY ity of tablet 00:00: MOUTH [place] 00 THREE Medical TIMES Branch DAILY GABAPENTIN 2021- Yes [id number] TAKE 1 [facility] 600 mg 1-17 TABLET BY ity of tablet 00:00: MOUTH [place] 00 THREE Medical TIMES Branch DAILY GABAPENTIN 2021- Yes [id number] TAKE 1 [facility] 600 mg 1-17 TABLET BY ity of tablet 00:00: MOUTH [place] 00 THREE Medical TIMES Branch DAILY GABAPENTIN 2021-2021- No [id number] TAKE 1 [facility] 600 mg 1-17 12-21 TABLET BY ity of tablet 00:00: 00:00 MOUTH [place] 00 :00 THREE Medical TIMES Branch DAILY GABAPENTIN 2021-11- No [id number] TAKE 1 [facility] 600 mg 1-17 12-21 TABLET BY ity of tablet 00:00: 00:00 MOUTH [place] 00 :00 THREE Medical TIMES Branch DAILY atorvastati 2021-11 Yes TAKE 1 Univ ers n (LIPITOR) 1-12 TABLET BY ity of 20 mg 00:00: MOUTH [place] tablet 00 EVERY DAY MD Liane olivier [facility] ALPRAZolam 2021-11 Yes 2mg Take 2 mg Un ally 2 mg tablet 1-12 by mouth 3 it y of 00:00: (three) [place] 00 times Medical daily as Branch needed. atorvastati 2021-11 Yes 20mg Take 20 mg Univers n 20 mg 1-12 by mouth ity of tablet 00:00: in the [place] 00 morning. Medical Branch ALPRAZolam 2021-11 Yes 2mg Take 2 mg Un ally 2 mg tablet 1-12 by mouth 3 it y of 00:00: (three) [place] 00 times Medical daily as Branch needed. atorvastati 2021-11 Yes 20mg Take 20 mg Univers n 20 mg 1-12 by mouth ity of tablet 00:00: in the [place] 00 morning. Medical Branch ALPRAZolam 2021-11 Yes 2mg Take 2 mg Un ally 2 mg tablet 1-12 by mouth 3 it y of 00:00: (three) [place] 00 times Medical daily as Branch needed. atorvastati 2021-11 Yes 20mg Take 20 mg Univers n 20 mg 1-12 by mouth ity of tablet 00:00: in the [place] 00 morning. Medical Branch ALPRAZolam 2021-11 Yes 2mg Take 2 mg Un ally 2 mg tablet 1-12 by mouth 3 it y of 00:00: (three) [place] 00 times Medical daily as Branch needed. atorvastati 2021-11 Yes 20mg Take 20 mg Univers n 20 mg 1-12 by mouth ity of tablet 00:00: in the [place] 00 morning. Medical Branch ALPRAZolam 2021-11 Yes 2mg Take 2 mg Un ally 2 mg tablet 1-12 by mouth 3 it y of 00:00: (three) [place] 00 times Medical daily as Branch needed. atorvastati 2021-11 Yes 20mg Take 20 mg Univers n 20 mg 1-12 by mouth ity of tablet 00:00: in the [place] 00 morning. Medical Branch ALPRAZolam 2021-11 Yes 2mg Take 2 mg Un ally 2 mg tablet 1-12 by mouth 3 it y of 00:00: (three) [place] 00 times Medical daily as Branch needed. atorvastati 2021-11 Yes 20mg Take 20 mg Univers n 20 mg 1-12 by mouth ity of tablet 00:00: in the [place] 00 morning. Medical Branch ALPRAZolam 2021-11 Yes 2mg Take 2 mg Un ally 2 mg tablet 1-12 by mouth 3 it y of 00:00: (three) [place] 00 times Medical daily as Branch needed. atorvastati 2021- Yes 20mg Take 20 mg Univers n 20 mg 1-12 by mouth ity of tablet 00:00: in the [place] 00 morning. Medical Branch ALPRAZolam 2021-11 Yes 2mg Take 2 mg Un ally 2 mg tablet 1-12 by mouth 3 it y of 00:00: (three) [place] 00 times Medical daily as Branch needed. atorvastati 2021-11 Yes 20mg Take 20 mg Univers n 20 mg 1-12 by mouth ity of tablet 00:00: in the [place] 00 morning. Medical Branch ALPRAZolam 2021-11 Yes 2mg Take 2 mg Un ally 2 mg tablet 1-12 by mouth 3 it y of 00:00: (three) [place] 00 times Medical daily as Branch needed. atorvastati 2021-11 Yes 20mg Take 20 mg Univers n 20 mg 1-12 by mouth ity of tablet 00:00: in the [place] 00 morning. Medical Branch ALPRAZolam 2021-11 Yes 2mg Take 2 mg Un ally 2 mg tablet 1-12 by mouth 3 it y of 00:00: (three) [place] 00 times Medical daily as Branch needed. atorvastati 2021- Yes 20mg Take 20 mg Univers n 20 mg 1-12 by mouth ity of tablet 00:00: in the [place] 00 morning. Medical Branch ALPRAZolam 2021- Yes 2mg Take 2 mg Un ally 2 mg tablet 1-12 by mouth 3 it y of 00:00: (three) [place] 00 times Medical daily as Branch needed. atorvastati 2021- Yes 20mg Take 20 mg Univers n 20 mg 1-12 by mouth ity of tablet 00:00: in the [place] 00 morning. Medical Branch ALPRAZolam 2021-11 Yes 2mg Take 2 mg Un ally 2 mg tablet 1-12 by mouth 3 it y of 00:00: (three) [place] 00 times Medical daily as Branch needed. atorvastati 2021-11 Yes 20mg Take 20 mg Univers n 20 mg 1-12 by mouth ity of tablet 00:00: in the [place] 00 morning. Medical Branch ALPRAZolam 2021-11 Yes 2mg Take 2 mg Un ally 2 mg tablet 1-12 by mouth 3 it y of 00:00: (three) [place] 00 times Medical daily as Branch needed. atorvastati 2021-11 Yes 20mg Take 20 mg Univers n 20 mg 1-12 by mouth ity of tablet 00:00: in the [place] 00 morning. Medical Branch ALPRAZolam 2021-11 Yes 2mg Take 2 mg Un ally 2 mg tablet 1-12 by mouth 3 it y of 00:00: (three) [place] 00 times Medical daily as Branch needed. atorvastati 2021-11 Yes 20mg Take 20 mg Univers n 20 mg 1-12 by mouth ity of tablet 00:00: in the [place] 00 morning. Medical Branch ALPRAZolam 2021-11 Yes 2mg Take 2 mg Un ally 2 mg tablet 1-12 by mouth 3 it y of 00:00: (three) [place] 00 times Medical daily as Branch needed. atorvastati 2021-11 Yes 20mg Take 20 mg Univers n 20 mg 1-12 by mouth ity of tablet 00:00: in the [place] 00 morning. Medical Branch ALPRAZolam 2021-11 Yes 2mg Take 2 mg Un ally 2 mg tablet 1-12 by mouth 3 it y of 00:00: (three) [place] 00 times Medical daily as Branch needed. atorvastati 2021- Yes 20mg Take 20 mg Univers n 20 mg 1-12 by mouth ity of tablet 00:00: in the [place] 00 morning. Medical Branch ALPRAZolam 2021-11 Yes 2mg Take 2 mg Un ally 2 mg tablet 1-12 by mouth 3 it y of 00:00: (three) [place] 00 times Medical daily as Branch needed. atorvastati 2021 Yes 20mg Take 20 mg Univers n 20 mg 1-12 by mouth ity of tablet 00:00: in the [place] 00 morning. Medical Branch ALPRAZolam 2021-11 Yes 2mg Take 1 Unive rs 2 mg tablet 1-12 tablet by ity of 00:00: mouth 3 [place] 00 (three) Medical times Branch daily as needed. atorvastati 2021-11 Yes 20mg Take 1 Univ ers n 20 mg 1-12 tablet by ity of tablet 00:00: mouth in [place] 00 the Medical morning. Branch ALPRAZolam 2021-11 Yes 2mg Take 1 Unive rs 2 mg tablet 1-12 tablet by ity of 00:00: mouth 3 00 (three) Medical times Branch daily as needed. atorvastati 2021-11 Yes 20mg Take 1 Univ ers n 20 mg 1-12 tablet by ity of tablet 00:00: mouth in [place] 00 the Medical morning. Branch atorvastati 2021-11 Yes TAKE 1 Univ ers n (LIPITOR) 1-12 TABLET BY ity of 20 mg 00:00: MOUTH [place] tablet 00 EVERY DAY MD [facility] atorvastati 2021-11 Yes TAKE 1 Univ ers n (LIPITOR) 1-12 TABLET BY ity of 20 mg 00:00: MOUTH [place] tablet 00 EVERY DAY MD [facility] atorvastati 2021-11 Yes TAKE 1 Univ ers n (LIPITOR) 1-12 TABLET BY ity of 20 mg 00:00: MOUTH [place] tablet 00 EVERY DAY MD [facility] hydrocortis 2021-11 Yes APPLY Unive rs one 1 % 1-10 TWICE ity of cream 00:00: DAILY IN [place] 00 AND AROUND Medical THE RECTUM Branch AFTER SITZ BATH hydrocortis 2021-11 Yes APPLY Unive rs one 1 % 1-10 TWICE ity of cream 00:00: DAILY IN [place] 00 AND AROUND Medical THE RECTUM Branch AFTER SITZ B[place] hydrocortis 2021-11 Yes APPLY Unive rs one 1 % 1-10 TWICE ity of cream 00:00: DAILY IN [place] 00 AND AROUND Medical THE RECTUM Branch AFTER SITZ [place] hydrocortis 2021-11 Yes APPLY Unive rs one 1 % 1-10 TWICE ity of cream 00:00: DAILY IN [place] 00 AND AROUND Medical THE RECTUM Branch AFTER S[place] hydrocortis 2021-11 Yes APPLY Unive rs one 1 % 1-10 TWICE ity of cream 00:00: DAILY IN [place] 00 AND AROUND Medical THE RECTUM Branch AFTER S[place]Z [place] hydrocortis 2021-11 Yes APPLY Unive rs one 1 % 1-10 TWICE ity of cream 00:00: DAILY IN [place] 00 AND AROUND Medical THE RECTUM Branch AFTER S[place] hydrocortis 2021-11 Yes APPLY Unive rs one 1 % 1-10 TWICE ity of cream 00:00: DAILY IN [place] 00 AND AROUND Medical THE RECTUM Branch AFTER S[place] hydrocortis 2021-11 Yes APPLY Unive rs one 1 % 1-10 TWICE ity of cream 00:00: DAILY IN [place] 00 AND AROUND Medical THE RECTUM Branch AFTER S[place] hydrocortis 2021-11 Yes APPLY Unive rs one 1 % 1-10 TWICE ity of cream 00:00: DAILY IN [place] 00 AND AROUND Medical THE RECTUM Branch AFTER S[place] hydrocortis 2021-11 Yes APPLY Unive rs one 1 % 1-10 TWICE ity of cream 00:00: DAILY IN [place] 00 AND AROUND Medical THE RECTUM Branch AFTER S[place] hydrocortis 2021-11 Yes APPLY Unive rs one 1 % 1-10 TWICE ity of cream 00:00: DAILY IN [place] 00 AND AROUND Medical THE RECTUM Branch AFTER S[place] hydrocortis 2021-11 Yes APPLY Unive rs one 1 % 1-10 TWICE ity of cream 00:00: DAILY IN [place] 00 AND AROUND Medical THE RECTUM Branch AFTER S[place] hydrocortis 2021-11 Yes APPLY Unive rs one 1 % 1-10 TWICE ity of cream 00:00: DAILY IN [place] 00 AND AROUND Medical THE RECTUM Branch AFTER [place] hydrocortis 2021-11 Yes APPLY Unive rs one 1 % 1-10 TWICE ity of cream 00:00: DAILY IN [place] 00 AND AROUND Medical THE RECTUM Branch AFTER [place] hydrocortis 2021-11 Yes APPLY Unive rs one 1 % 1-10 TWICE ity of cream 00:00: DAILY IN [place] 00 AND AROUND Medical THE RECTUM Branch AFTER [place] hydrocortis 2021-11 Yes APPLY Unive rs one 1 % 1-10 TWICE ity of cream 00:00: DAILY IN [place] 00 AND AROUND Medical THE RECTUM Branch AFTER [place] hydrocortis 2022-1 Yes APPLY Unive rs one 1 % 1-10 TWICE ity of cream 00:00: DAILY IN [place] 00 AND AROUND Medical [facility] Yes APPLY Unive rs one 1 % 1-10 TWICE ity of cream 00:00: DAILY IN [place] 00 AND AROUND Medical THE RECTUM Branch AFTER SITZ [place]GAN[place] hydrocortis 2021-11 Yes APPLY Unive rs one 1 % 1-10 TWICE ity of cream 00:00: DAILY IN [place] 00 AND AROUND Medical THE RECTUM Branch AFTER [facility] hydrocortis 2021-11- No APPLY Univ ers one 1 % 11-10 TWICE ity of crpe 00:00: 00:00 DAILY IN [place] 00 :00 AND AROUND MD THE RECTUM [place] AFTER [facility] hydrocortis 2021-11- No APPLY Univ ers one 1 % 11-10 TWICE ity of crpe 00:00: 00:00 DAILY IN [place] 00 :00 AND AROUND MD THE RECTUM [place] AFTER [facility] hydrocortis 2021-11- No APPLY Univ ers one 1 % 11-10- TWICE ity of crpe 00:00: 00:00 DAILY IN [place] 00 :00 AND AROUND MD THE RECTUM [place] AFTER [facility] hydrocortis 2021-11- No APPLY Univ ers one 1 % 11-10- TWICE ity of crpe 00:00: 00:00 DAILY IN [place] 00 :00 AND AROUND MD THE RECTUM [place] AFTER [facility] benzonatate 2021-11 Yes TAKE 1 Univ ers [...] by ity of tablet 00:00: mouth in [place] 00 the Medical morning Branch and 0.1 mg at noon and 0.1 mg in the evening. benzonatate 2021-11 Yes TAKE 1 Univ ers 100 mg 1-05 CAPSULE BY ity of capsule 00:00: MOUTH [place] 00 THREE Medical TIMES Branch DAILY NEEDED [...] by ity of tablet 00:00: mouth in [place] the Medical morning Branch and 0.1 mg at noon and 0.1 mg in the evening. benzonatate 2021-11 Yes TAKE 1 Univ ers 100 mg 1-05 CAPSULE BY ity of capsule 00:00: MOUTH [place] [address] THREE Medical TIMES Branch DAILY NEEDED FOR [...] by ity of tablet 00:00: mouth in [place] the Medical morning Branch and 0.1 mg at noon and 0.1 mg in the evening. benzonatate 2021-11 Yes TAKE 1 Univ ers 100 mg 1-05 CAPSULE BY ity of capsule 00:00: MOUTH [place] 00 THREE Medical TIMES Branch DAILY NEEDED [...] by ity of tablet 00:00: mouth in [place] the Medical morning Branch and 0.1 mg at noon and 0.1 mg in the evening. benzonatate 2021-11 Yes TAKE 1 Univ ers 100 mg 1-05 CAPSULE BY ity of capsule 00:00: MOUTH [place] 00 THREE Medical TIMES Branch DAILY NEEDED [...] by ity of tablet 00:00: mouth in [place] 00 the Medical morning Branch and 0.1 [...] by ity of tablet 00:00: mouth in [place] 00 the Medical morning Branch and 0.1 [...] by ity of tablet 00:00: mouth in [place] the Medical morning Branch and 0.1 mg at noon and 0.1 mg in the evening. benzonatate 2021-11 Yes TAKE 1 Univ ers 100 mg 1-05 CAPSULE BY ity of capsule 00:00: MOUTH [place] THREE Medical TIMES Branch DAILY NEEDED FOR [...] by ity of tablet 00:00: mouth in [place] the Medical morning Branch and 0.1 mg at noon and 0.1 mg in the evening. benzonatate 2021-11 Yes TAKE 1 Univ ers 100 mg 1-05 CAPSULE BY ity of capsule 00:00: MOUTH [place] THREE Medical TIMES Branch DAILY NEEDED FOR [...] by ity of tablet 00:00: mouth in [place] 00 the Medical morning Branch and 0.1 [...] by ity of tablet 00:00: mouth in [place] 00 the Medical morning Branch and 0.1 mg at noon and 0.1 mg in the evening. benzonatate 2021-11 Yes TAKE 1 Univ ers 100 mg 1-05 CAPSULE BY ity of capsule 00:00: MOUTH [place] 00 THREE Medical TIMES Branch DAILY NEEDED [...] by ity of tablet 00:00: mouth in [place] the Medical morning Branch and 0.1 mg at noon and 0.1 mg in the evening. benzonatate 2021-11 Yes TAKE 1 Univ ers 100 mg 1-05 CAPSULE BY ity of capsule 00:00: MOUTH [place] THREE Medical TIMES Branch DAILY NEEDED FOR [...] by ity of tablet 00:00: mouth in [place] the Medical morning Branch and 0.1 mg at noon and 0.1 mg in the evening. benzonatate 2021-11 Yes TAKE 1 Univ ers 100 mg 1-05 CAPSULE BY ity of capsule 00:00: MOUTH [place] [address] THREE Medical TIMES Branch DAILY NEEDED FOR COUGH codeine-gua 2021-11 Yes TAKE 10 ML Univers ifenesin 1-05 BY MOUTH ity of 10-100 mg/5 00:00: TWICE [place] mL oral 00 DAILY Medical solution NEEDED FOR Branc h COUGH metoprolol 2021-11 Yes 50mg Take 1 Unive rs succinate 1-05 tablet by ity o f XL 50 mg 24 00:00: mouth in [place] tablet 00 the Medical morning Branch and 1 tablet in the evening. oseltamivir 2021-11 Yes TAKE ONE Un ally 75 mg 1-05 (1) ity of capsule 00:00: CAPSULE(S) [place] 00 BY MOUTH Medical TWICE A Branch DAY. cloNIDine 2021-11 Yes .1mg Take 1 Univer s 0.1 mg 1-05 tablet by ity of tablet 00:00: mouth in [place] 00 the Medical morning Branch and 1 tablet at noon and 1 tablet in the evening. benzonatate 2021-11 Yes TAKE [...] h COUGH metoprolol 2021-11 Yes 50mg Take 1 Unive rs succinate 1-05 tablet by ity o f XL 50 mg 24 00:00: mouth in [place] hr tablet 00 the Medical morning Branch and 1 tablet in the evening. oseltamivir 2021-11 Yes TAKE ONE Un ally 75 mg 1-05 (1) ity of capsule 00:00: CAPSULE(S) [place] 00 BY MOUTH Medical TWICE A Branch DAY. cloNIDine 2021-11 Yes .1mg Take 1 Univer s 0.1 mg 1-05 tablet by ity of tablet 00:00: mouth in [place] 00 the Medical morning Branch and 1 tablet at noon and 1 tablet in the evening. LISINOPRIL 2021-11 Yes [id number] TAKE 1/2 Univers 40 mg 1-04 TABLET BY ity of tablet 00:00: MOUTH [place] 00 TWICE Medical DAILY Branch LISINOPRIL 2021-11 Yes [id number] TAKE 1/2 Univers 40 mg 1-04 TABLET BY ity of tablet 00:00: MOUTH [place] 00 TWICE Medical DAILY Branch LISINOPRIL 2021-11 Yes [id number] TAKE 1/2 Univers 40 mg 1-04 TABLET BY ity of tablet 00:00: MOUTH [place] 00 TWICE Medical DAILY Branch LISINOPRIL 2021-11 Yes [id number] TAKE 1/2 Univers 40 mg 1-04 TABLET BY ity of tablet 00:00: MOUTH [place] 00 TWICE Medical DAILY Branch LISINOPRIL 2021-11 Yes [id number] TAKE 1/2 Univers 40 mg 1-04 TABLET BY ity of tablet 00:00: MOUTH [place] 00 TWICE Medical DAILY Branch LISINOPRIL 2021-11 Yes [id number] TAKE 1/2 Univers 40 mg 1-04 TABLET BY ity of tablet 00:00: MOUTH [place] 00 TWICE Medical DAILY Branch LISINOPRIL 2021-11 Yes [id number] TAKE 1/2 Univers 40 mg 1-04 TABLET BY ity of tablet 00:00: MOUTH [place] 00 TWICE Medical DAILY Branch LISINOPRIL 2021-11- No [id number] TAKE 1/2 Univers 40 mg 1-04 12-02 TABLET BY ity of tablet 00:00: 00:00 MOUTH [place] 00 :00 TWICE Medical DAILY Branch hydrALAZINE 2021-11 Yes [id number] TAKE 1 Univers 100 mg 1-03 TABLET BY ity of tablet 00:00: MOUTH [place] 00 THREE Medical TIMES Branch DAILY lisinopriL 2021-11 Yes [id number] TAKE 1/2 Univers 40 mg 1-03 TABLET BY ity of tablet 00:00: MOUTH [place] 00 TWICE Medical DAILY Branch metoprolol 2021-11 Yes TAKE 1 Unive rs tartrate 1-03 TABLET BY ity of 100 mg 00:00: MOUTH [place] tablet 00 TWICE Medical DAILY Branch hydrALAZINE 2021-11 Yes [id number] TAKE 1 Univers 100 mg 1-03 TABLET BY ity of tablet 00:00: MOUTH [place] 00 THREE Medical TIMES Branch DAILY metoprolol 2021-11 Yes TAKE 1 Unive rs tartrate 1-03 TABLET BY ity of 100 mg 00:00: MOUTH [place] tablet 00 TWICE Medical DAILY Branch hydrALAZINE 2021-11 Yes [id number] TAKE 1 [facility] 100 mg 1-03 TABLET BY ity of tablet 00:00: MOUTH [place] 00 THREE Medical TIMES Branch DAILY metoprolol 2021-11 Yes TAKE 1 Unive rs tartrate 1-03 TABLET BY ity of 100 mg 00:00: MOUTH [place] tablet 00 TWICE Medical DAILY Branch hydrALAZINE 2021-11 Yes [id number] TAKE 1 Univers 100 mg 1-03 TABLET BY ity of tablet 00:00: MOUTH [place] 00 THREE Medical TIMES Branch DAILY metoprolol 2021-11 Yes TAKE 1 Unive rs tartrate 1-03 TABLET BY ity of 100 mg 00:00: MOUTH [place] tablet 00 TWICE Medical DAILY Branch hydrALAZINE 2021-11 Yes [id number] TAKE 1 [facility] 100 mg 1-03 TABLET BY ity of tablet 00:00: MOUTH [place] 00 THREE Medical TIMES Branch DAILY metoprolol 2021-11 Yes TAKE 1 Unive rs tartrate 1-03 TABLET BY ity of 100 mg 00:00: MOUTH [place] tablet 00 TWICE Medical DAILY Branch hydrALAZINE 2021-11 Yes [id number] TAKE 1 Univers 100 mg 1-03 TABLET BY ity of tablet 00:00: MOUTH [place] 00 THREE Medical TIMES Branch DAILY metoprolol 2021-11 Yes TAKE 1 Unive rs tartrate 1-03 TABLET BY ity of 100 mg 00:00: MOUTH [place] tablet 00 TWICE Medical DAILY Branch hydrALAZINE 2021-11 Yes [id number] TAKE 1 [facility] 100 mg 1-03 TABLET BY ity of tablet 00:00: MOUTH [place] 00 THREE Medical TIMES Branch DAILY metoprolol 2021-11 Yes TAKE 1 Unive rs tartrate 1-03 TABLET BY ity of 100 mg 00:00: MOUTH [place] tablet 00 TWICE Medical DAILY Branch hydrALAZINE 2021-11 Yes [id number] TAKE 1 [facility] 100 mg 1-03 TABLET BY ity of tablet 00:00: MOUTH [place] 00 THREE Medical TIMES Branch DAILY metoprolol 2021-11 Yes TAKE 1 Unive rs tartrate 1-03 TABLET BY ity of 100 mg 00:00: MOUTH [place] tablet 00 TWICE Medical DAILY Branch hydrALAZINE 2021-11 Yes [id number] TAKE 1 Univers 100 mg 1-03 TABLET BY ity of tablet 00:00: MOUTH [place] 00 THREE Medical TIMES Branch DAILY metoprolol 2021-11 Yes TAKE 1 Unive rs tartrate 1-03 TABLET BY ity of 100 mg 00:00: MOUTH [place] tablet 00 TWICE Medical DAILY Branch hydrALAZINE 2021-11 Yes [id number] TAKE 1 [facility] 100 mg 1-03 TABLET BY ity of tablet 00:00: MOUTH [place] 00 THREE Medical TIMES Branch DAILY metoprolol 2021-11 Yes TAKE 1 Unive rs tartrate 1-03 TABLET BY ity of 100 mg 00:00: MOUTH [place] tablet 00 TWICE Medical DAILY Branch hydrALAZINE 2021-11 Yes [id number] TAKE 1 [facility] 100 mg 1-03 TABLET BY ity of tablet 00:00: MOUTH [place] 00 THREE Medical TIMES Branch DAILY metoprolol 2021-11 Yes TAKE 1 Unive rs tartrate 1-03 TABLET BY ity of 100 mg 00:00: MOUTH [place] tablet 00 TWICE Medical DAILY Branch hydrALAZINE 2021-11 Yes [id number] TAKE 1 [facility] 100 mg 1-03 TABLET BY ity of tablet 00:00: MOUTH [place] 00 THREE Medical TIMES Branch DAILY hydrALAZINE 2021-11 Yes [id number] TAKE 1 [facility] 100 mg 1-03 TABLET BY ity of tablet 00:00: MOUTH [place] 00 THREE Medical TIMES Branch DAILY hydrALAZINE 2021-11- No [id number] TAKE 1 [facility] 100 mg 1-03 -09 TABLET BY ity of tablet 00:00: 00:00 MOUTH [place] 00 :00 THREE Medical TIMES Branch DAILY metoprolol 2021-11- No TAKE 1 Univ ers tartrate 1-03 - TABLET BY ity o f 100 mg 00:00: 00:00 MOUTH [place] tablet 00 :00 TWICE Medical DAILY Branch lisinopriL 2021-11- No [id number] TAKE 1/2 Univers 40 mg -01 09- TABLET BY ity of tablet 00:00: 00:00 MOUTH [place] 00 :00 TWICE Medical DAILY Branch allopurinoL 2021-11 Yes 300mg Take 300 U nivers 300 mg 1-01 mg by ity of tablet 00:00: mouth in [place] 00 the Medical morning Branch and 300 mg in the evening. allopurinoL 2021-11 Yes 300mg Take 300 U nivers 300 mg 1-01 mg by ity of tablet 00:00: mouth in [place] 00 the Medical morning Branch and 300 mg in the evening. allopurinoL 2021-11 Yes 300mg Take 300 U nivers 300 mg 1-01 mg by ity of tablet 00:00: mouth in [place] the Medical morning Branch and 300 mg in the evening. allopurinoL 2021-11 Yes 300mg Take 300 U nivers 300 mg 1-01 mg by ity of tablet 00:00: mouth in [place] 00 the Medical morning Branch and 300 mg in the evening. allopurinoL 2022-1 Yes 300mg Take 300 U nivers 300 mg 1-01 mg by ity of tablet 00:00: mouth in [place] 00 the Medical morning Branch and 300 mg in the evening. allopurinoL 2022-1 Yes 300mg Take 300 U nivers 300 mg 1-01 mg by ity of tablet 00:00: mouth in [place] 00 the Medical morning Branch and 300 mg in the evening. allopurinoL 2022-1 Yes 300mg Take 300 U nivers 300 mg 1-01 mg by ity of tablet 00:00: mouth in [place] 00 the Medical morning Branch and 300 mg in the evening. allopurinoL 2022-1 Yes 300mg Take 300 U nivers 300 mg 1-01 mg by ity of tablet 00:00: mouth in [place] [address] the Medical morning Branch and 300 mg in the evening. allopurinoL 2-1 Yes 300mg Take 300 U nivers 300 mg 1-01 mg by ity of tablet 00:00: mouth in [place] [address] the Medical morning Branch and 300 mg in the evening. allopurinoL 2-1 Yes 300mg Take 300 U nivers 300 mg 1-01 mg by ity of tablet 00:00: mouth in [place] 00 the Medical morning Branch and 300 mg in the evening. allopurinoL 2-1 Yes 300mg Take 300 U nivers 300 mg 1-01 mg by ity of tablet 00:00: mouth in [place] [address] the Medical morning Branch and 300 mg in the evening. allopurinoL 2022-1 Yes 300mg Take 300 U nivers 300 mg 1-01 mg by ity of tablet 00:00: mouth in [place] [address] the Medical morning Branch and 300 mg in the evening. allopurinoL 2022-1 Yes 300mg Take 300 U nivers 300 mg 1-01 mg by ity of tablet 00:00: mouth in [place] [address] the Medical morning Branch and 300 mg in the evening. allopurinoL 2022-1 Yes 300mg Take 300 U nivers 300 mg 1-01 mg by ity of tablet 00:00: mouth in [place] [address] the Medical morning Branch and 300 mg in the evening. allopurinoL 2022-1 Yes 300mg Take 300 U nivers 300 mg 1-01 mg by ity of tablet 00:00: mouth in [place] 00 the Medical morning Branch and 300 mg in the evening. allopurinoL 2021-11 Yes 300mg Take 300 U nivers 300 mg 1-01 mg by ity of tablet 00:00: mouth in [place] 00 the Medical morning Branch and 300 mg in the evening. allopurinoL 2021-11 Yes 300mg Take 300 U nivers 300 mg 1-01 mg by ity of tablet 00:00: mouth in [place] 00 the Medical morning Branch and 300 mg in the evening. allopurinoL 2021-11 Yes 300mg Take 1 Uni vers 300 mg 1-01 tablet by ity of tablet 00:00: mouth in [place] 00 the Medical morning Branch and 1 tablet in the evening. allopurinoL 2021-11 Yes 300mg Take 1 Uni vers 300 mg 1-01 tablet by ity of tablet 00:00: mouth in [place] 00 the Medical morning Branch and 1 tablet in the evening. allopurinol 2021-11- No TAKE 1 Uni vers (ZYLOPRIM) 11-01 03-20 TABLET BY ity of 300 mg 00:00: 00:00 MOUTH [place] tablet 00 :00 TWICE MD DAILY [facility] allopurinol 2021-11- No TAKE 1 Uni vers (ZYLOPRIM) 11-01 03-20 TABLET BY ity of 300 mg 00:00: 00:00 MOUTH [place] tablet 00 :00 TWICE MD DAILY [facility] allopurinol 2021-11- No TAKE 1 Uni vers (ZYLOPRIM) 11-01 03-20 TABLET BY ity of 300 mg 00:00: 00:00 MOUTH [place] tablet 00 :00 TWICE MD DAILY [facility] allopurinol 2021-11- No TAKE 1 Uni vers (ZYLOPRIM) 11-01 03-20 TABLET BY ity of 300 mg 00:00: 00:00 MOUTH [place] tablet 00 :00 TWICE MD DAILY [facility] triamcinolo 2021-11 Yes APPLY Unive rs ne 0-28 TOPICALLY ity of acetonide 00:00: TO THE [place] 0.1 % cream 00 AFFECTED Medi mari AREA TWICE Branch DAILY triamcinolo 2021-11 Yes APPLY Unive rs ne 0-28 TOPICALLY ity of acetonide 00:00: TO THE [place] 0.1 % cream 00 AFFECTED Medi mari [...] :00 AFFECTED MD AREA TWICE [place] DAILY [facility] triamcinolo 2021-11- No APPLY Univ ers ne 0-28 03-14 TOPICALLY ity of (KENALOG) 00:00: 00:00 TO THE [place] 0.1% cream 00 :00 AFFECTED MD AREA TWICE [place] DAILY n [facility] triamcinolo 2021-11- No APPLY Univ ers ne 0-28 03-14 TOPICALLY ity of (KENALOG) 00:00: 00:00 TO THE [place] 0.1% cream 00 :00 AFFECTED MD AREA TWICE [place] DAILY [facility] triamcinolo 2021-11- No APPLY Univ ers ne 0-28 03-14 TOPICALLY ity of (KENALOG) 00:00: 00:00 TO THE [place] 0.1% cream 00 :00 AFFECTED MD AREA TWICE [place] DAILY [facility] ketorolac 2021-11- No [id number] 30mg Univers (TORADOL) 0-25 -05 ity of injection 16:45: 16:45 [place] 30 mg 00 :00 [facility] ketorolac 2021-11- No [id number] 30mg 30 mg, Univers (TORADOL) 0-25 -05 Intramuscu ity of injection 16:45: 16:45 [place], ONCE, [place] 30 mg 00 :00 1 dose, On [facility] 08/25/22 at 1145, Routine ketorolac 2021-11- No [id number] 30mg Univers (TORADOL) 0-25 08-2505 ity of injection 16:45: 16:45 [place] 30 mg 00 :00 [facility] ketorolac 2021-11- No [id number] 30mg 30 mg, Univers (TORADOL) 0-25 08-25 Intramuscu ity of injection 16:45: 16:45 [place], ONCE, [place] 30 mg 00 :00 1 dose, On [facility] 08/25/22 at 1145, Routine rizatriptan 2021-11 Yes [id number] 5mg Take 1 [facility] 5 mg 0-25 9105 tablet by ity of disintegrat 00:00: mouth as [place] ing tablet 00 needed for Med ical Migraine Branch (take 1 on onset of migraine and can repeat in 2 hrs). May repeat in 2 hours if needed rizatriptan 2021-11 Yes [id number] 5mg Take 1 [facility] 5 mg 0-25 9105 tablet by ity of disintegrat 00:00: mouth as [place] ing tablet 00 needed for Med ical Migraine Branch (take 1 on onset of migraine and can repeat in 2 hrs). May repeat in 2 hours if needed rizatriptan 2021-11 Yes [id number] 5mg Take 1 [facility] 5 mg 0-25 9105 tablet by ity of disintegrat 00:00: mouth as [place] ing tablet 00 needed for Med ical Migraine Branch (take 1 on onset of migraine and can repeat in 2 hrs). May repeat in 2 hours if needed rizatriptan 2021-11 Yes [id number] 5mg Take 1 [facility] 5 mg 0-25 9105 tablet by ity of disintegrat 00:00: mouth as [place] ing tablet 00 needed for Med ical Migraine Branch (take 1 on onset of migraine and can repeat in 2 hrs). May repeat in 2 hours if needed rizatriptan 2021-11 Yes [id number] 5mg Take 1 [facility] 5 mg 0-25 9105 tablet by ity of disintegrat 00:00: mouth as [place] ing tablet 00 needed for Med ical Migraine Branch (take 1 on onset of migraine and can repeat in 2 hrs). May repeat in 2 hours if needed rizatriptan 2021-11 Yes [id number] 5mg Take 1 [facility] 5 mg 0-25 9105 tablet by ity of disintegrat 00:00: mouth as [place] ing tablet 00 needed for Med ical Migraine Branch (take 1 on onset of migraine and can repeat in 2 hrs). May repeat in 2 hours if needed rizatriptan 2021-11 Yes [id number] 5mg Take 1 [facility] 5 mg 0-25 9105 tablet by ity of disintegrat 00:00: mouth as [place] ing tablet 00 needed for Med ical Migraine Branch (take 1 on onset of migraine and can repeat in 2 hrs). May repeat in 2 hours if needed rizatriptan 2021-11 Yes [id number] 5mg Take 1 [facility] 5 mg 0-25 9105 tablet by ity of disintegrat 00:00: mouth as [place] ing tablet 00 needed for Med ical Migraine Branch (take 1 on onset of migraine and can repeat in 2 hrs). May repeat in 2 hours if needed rizatriptan 2021-11 Yes [id number] 5mg Take 1 [facility] 5 mg 0-25 9105 tablet by ity of disintegrat 00:00: mouth as [place] ing tablet 00 needed for Med ical Migraine Branch (take 1 on onset of migraine and can repeat in 2 hrs). May repeat in 2 hours if needed rizatriptan 2021-11 Yes [id number] 5mg Take 1 [facility] 5 mg 0-25 9105 tablet by ity of disintegrat 00:00: mouth as [place] ing tablet 00 needed for Med ical Migraine Branch (take 1 on onset of migraine and can repeat in 2 hrs). May repeat in 2 hours if needed rizatriptan 2021-11 Yes [id number] 5mg Take 1 [facility] 5 mg 0-25 9105 tablet by ity of disintegrat 00:00: mouth as [place] ing tablet 00 needed for Med ical Migraine Branch (take 1 on onset of migraine and can repeat in 2 hrs). May repeat in 2 hours if needed rizatriptan 2021-11 Yes [id number] 5mg Take 1 [facility] 5 mg 0-25 9105 tablet by ity of disintegrat 00:00: mouth as [place] ing tablet 00 needed for Med ical Migraine Branch (take 1 on onset of migraine and can repeat in 2 hrs). May repeat in 2 hours if needed rizatriptan 2021-11 Yes [id number] 5mg Take 1 [facility] 5 mg 0-25 9105 tablet by ity of disintegrat 00:00: mouth as [place] ing tablet 00 needed for Med ical Migraine Branch (take 1 on onset of migraine and can repeat in 2 hrs). May repeat in 2 hours if needed rizatriptan 2021-11 Yes [id number] 5mg Take 1 [facility] 5 mg 0-25 9105 tablet by ity of disintegrat 00:00: mouth as [place] ing tablet 00 needed for Med ical Migraine Branch (take 1 on onset of migraine and can repeat in 2 hrs). May repeat in 2 hours if needed rizatriptan 2021-11 Yes [id number] 5mg Take 1 [facility] 5 mg 0-25 9105 tablet by ity of disintegrat 00:00: mouth as [place] ing tablet 00 needed for Med ical Migraine Branch (take 1 on onset of migraine and can repeat in 2 hrs). May repeat in 2 hours if needed rizatriptan 2021-11 Yes [id number] 5mg Take 1 [facility] 5 mg 0-25 9105 tablet by ity of disintegrat 00:00: mouth as [place] ing tablet 00 needed for Med ical Migraine Branch (take 1 on onset of migraine and can repeat in 2 hrs). May repeat in 2 hours if needed rizatriptan 2021-11 Yes [id number] 5mg Take 1 [facility] 5 mg 0-25 9105 tablet by ity of disintegrat 00:00: mouth as [place] ing tablet 00 needed for Med ical Migraine Branch (take 1 on onset of migraine and can repeat in 2 hrs). May repeat in 2 hours if needed rizatriptan 2021-11 Yes [id number] 5mg Take 1 [facility] 5 mg 0-25 9105 tablet by ity of disintegrat 00:00: mouth as [place] ing tablet 00 needed for Med ical Migraine Branch (take 1 on onset of migraine and can repeat in 2 hrs). May repeat in 2 hours if needed rizatriptan 2021-11 Yes [id number] 5mg Take 1 [facility] 5 mg 0-25 9105 tablet by ity of disintegrat 00:00: mouth as [place] ing tablet 00 needed for Med ical Migraine Branch (take 1 on onset of migraine and can repeat in 2 hrs). May repeat in 2 hours if needed rizatriptan 2021-11 Yes [id number] 5mg Take 1 [facility] 5 mg 0-25 9105 tablet by ity of disintegrat 00:00: mouth as [place] ing tablet 00 needed for Med ical Migraine Branch (take 1 on onset of migraine and can repeat in 2 hrs). May repeat in 2 hours if needed rizatriptan 2021-11 Yes [id number] 5mg Take 1 [facility] 5 mg 0-25 9105 tablet by ity of disintegrat 00:00: mouth as [place] ing tablet 00 needed for Med ical Migraine Branch (take 1 on onset of migraine and can repeat in 2 hrs). May repeat in 2 hours if needed rizatriptan 2021-11 Yes [id number] 5mg Take 1 [facility] 5 mg 0-25 9105 tablet by ity of disintegrat 00:00: mouth as [place] ing tablet 00 needed for Med ical Migraine Branch (take 1 on onset of migraine and can repeat in 2 hrs). May repeat in 2 hours if needed rizatriptan 2021-11 Yes [id number] 5mg Take 1 [facility] 5 mg 0-25 9105 tablet by ity of disintegrat 00:00: mouth as [place] ing tablet 00 needed for Med ical Migraine Branch (take 1 on onset of migraine and can repeat in 2 hrs). May repeat in 2 hours if needed rizatriptan 2021-11 Yes [id number] 5mg Take 1 [facility] 5 mg 0-25 9105 tablet by ity of disintegrat 00:00: mouth as [place] ing tablet 00 needed for Med ical Migraine Branch (take 1 on onset of migraine and can repeat in 2 hrs). May repeat in 2 hours if needed rizatriptan 2021-11 Yes [id number] 5mg Take 1 [facility] 5 mg 0-25 9105 tablet by ity of disintegrat 00:00: mouth as [place] ing tablet 00 needed for Med ical Migraine Branch (take 1 on onset of migraine and can repeat in 2 hrs). May repeat in 2 hours if needed rizatriptan 2021-11 Yes [id number] 5mg Take 1 [facility] 5 mg 0-25 9105 tablet by ity of disintegrat 00:00: mouth [place] ing tablet 00 needed for Med ical Migraine Branch (take 1 on onset of migraine and can repeat in 2 hrs). May repeat in 2 hours if needed rizatriptan 2021-11 Yes [id number] 5mg Take 1 [facility] 5 mg 0-25 9105 tablet by ity of disintegrat 00:00: mouth as [place] ing tablet 00 needed for Med ical Migraine Branch (take 1 on onset of migraine and can repeat in 2 hrs). May repeat in 2 hours if needed rizatriptan 2021-11 Yes [id number] 5mg Take 1 [facility] 5 mg 0-25 9105 tablet by ity of disintegrat 00:00: mouth as [place] ing tablet 00 needed for Med ical Migraine Branch (take 1 on onset of migraine and can repeat in 2 hrs). May repeat in 2 hours if needed rizatriptan 2021-11 Yes [id number] 5mg Take 1 [facility] 5 mg 0-25 9105 tablet by ity of disintegrat 00:00: mouth as [place] ing tablet 00 needed for Med ical Migraine Branch (take 1 on onset of migraine and can repeat in 2 hrs). May repeat in 2 hours if needed rizatriptan 2021-11 Yes [id number] 5mg Take 1 [facility] 5 mg 0-25 9105 tablet by ity of disintegrat 00:00: mouth as [place] ing tablet 00 needed for Med ical Migraine Branch (take 1 on onset of migraine and can repeat in 2 hrs). 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-25 03-14 ity of ) 5 mg 00:00: 00:00 [place] disintegrat 00 :00 MD ing tablet [facility] rizatriptan 2021-11- No Unive rs (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 NITROGLYCER 2021-[id number] 1 Univers IN 0.4 mg 0-24 TABLET ity of sublingual 00:00: UNDER THE [place] tablet 00 TONGUE Medical EVERY 5 Branch MINUTES NEEDED FOR CHEST PAIN. NITROGLYCER 2021-[id number] 1 Univers IN 0.4 mg 0-24 TABLET ity of sublingual 00:00: UNDER THE [place] tablet 00 TONGUE Medical EVERY 5 Branch MINUTES NEEDED FOR CHEST PAIN. NITROGLYCER 2021-[id number] 1 Univers IN 0.4 mg 0-24 TABLET ity of sublingual 00:00: UNDER THE [place] tablet 00 TONGUE Medical EVERY 5 Branch MINUTES NEEDED FOR CHEST PAIN. NITROGLYCER 2021-[id number] 1 [facility] IN 0.4 mg 0-24 TABLET ity of sublingual 00:00: UNDER THE [place] tablet 00 TONGUE Medical EVERY 5 Branch MINUTES NEEDED FOR CHEST PAIN. NITROGLYCER 2021-[id number] 1 [facility] IN 0.4 mg 0-24 TABLET ity of sublingual 00:00: UNDER THE [place] tablet 00 TONGUE Medical EVERY 5 Branch MINUTES NEEDED FOR CHEST PAIN. NITROGLYCER 2021-[id number] 1 [facility] IN 0.4 mg 0-24 TABLET ity of sublingual 00:00: UNDER THE [place] tablet 00 TONGUE Medical EVERY 5 Branch MINUTES NEEDED FOR CHEST PAIN. NITROGLYCER 2021-[id number] 1 Univers IN 0.4 mg 0-24 TABLET ity of sublingual 00:00: UNDER THE [place] tablet 00 TONGUE Medical EVERY 5 Branch MINUTES NEEDED FOR CHEST PAIN. NITROGLYCER 2021-[id number] 1 [facility] IN 0.4 mg 0-24 TABLET ity of sublingual 00:00: UNDER THE [place] tablet 00 TONGUE Medical EVERY 5 Branch MINUTES NEEDED FOR CHEST PAIN. NITROGLYCER 2021-[id number] 1 Univers IN 0.4 mg 0-24 TABLET ity of sublingual 00:00: UNDER THE [place] tablet 00 TONGUE Medical EVERY 5 Branch MINUTES NEEDED FOR CHEST PAIN. NITROGLYCER 2021-[id number] 1 Univers IN 0.4 mg 0-24 TABLET ity of sublingual 00:00: UNDER THE [place] tablet 00 TONGUE Medical EVERY 5 Branch MINUTES NEEDED FOR CHEST PAIN. NITROGLYCER 2021-[id number] 1 Univers IN 0.4 mg 0-24 TABLET ity of sublingual 00:00: UNDER THE [place] tablet 00 TONGUE Medical EVERY 5 Branch MINUTES NEEDED FOR CHEST PAIN. NITROGLYCER 2021-[id number] 1 [facility] IN 0.4 mg 0-24 TABLET ity of sublingual 00:00: UNDER THE [place] tablet 00 TONGUE Medical EVERY 5 Branch MINUTES NEEDED FOR CHEST PAIN. NITROGLYCER 2021-[id number] 1 Univers IN 0.4 mg 0-24 TABLET ity of sublingual 00:00: UNDER THE [place] tablet 00 TONGUE Medical EVERY 5 Branch MINUTES NEEDED FOR CHEST PAIN. NITROGLYCER 2021-[id number] 1 Univers IN 0.4 mg 0-24 TABLET ity of sublingual 00:00: UNDER THE [place] tablet 00 TONGUE Medical EVERY 5 Branch MINUTES NEEDED FOR CHEST PAIN. NITROGLYCER 2021-[id number] 1 Univers IN 0.4 mg 0-24 TABLET ity of sublingual 00:00: UNDER THE [place] tablet 00 TONGUE Medical EVERY 5 Branch MINUTES NEEDED FOR CHEST PAIN. NITROGLYCER 2021-[id number] 1 Univers IN 0.4 mg 0-24 TABLET ity of sublingual 00:00: UNDER THE [place] tablet 00 TONGUE Medical EVERY 5 Branch MINUTES NEEDED FOR CHEST PAIN. NITROGLYCER 2021-[id number] 1 Univers IN 0.4 mg 0-24 TABLET ity of sublingual 00:00: UNDER THE [place] tablet 00 TONGUE Medical EVERY 5 Branch MINUTES NEEDED FOR CHEST PAIN. NITROGLYCER 2021-[id number] 1 Univers IN 0.4 mg 0-24 TABLET ity of sublingual 00:00: UNDER THE [place] tablet 00 TONGUE Medical EVERY 5 Branch MINUTES NEEDED FOR CHEST PAIN. NITROGLYCER 2021-[id number] 1 Univers IN 0.4 mg 0-24 TABLET ity of sublingual 00:00: UNDER THE [place] tablet 00 TONGUE Medical EVERY 5 Branch MINUTES NEEDED FOR CHEST PAIN. NITROGLYCER 2021-[id number] 1 Univers IN 0.4 mg 0-24 TABLET ity of sublingual 00:00: UNDER THE [place] tablet 00 TONGUE Medical EVERY 5 Branch MINUTES NEEDED FOR CHEST PAIN. NITROGLYCER 2021-[id number] 1 Univers IN 0.4 mg 0-24 TABLET ity of sublingual 00:00: UNDER THE [place] tablet 00 TONGUE Medical EVERY 5 Branch MINUTES NEEDED FOR CHEST PAIN. NITROGLYCER 2021-[id number] 1 Univers IN 0.4 mg 0-24 TABLET ity of sublingual 00:00: UNDER THE [place] tablet 00 TONGUE Medical EVERY 5 Branch MINUTES NEEDED FOR CHEST PAIN. NITROGLYCER 2021-[id number] 1 Univers IN 0.4 mg 0-24 TABLET ity of sublingual 00:00: UNDER THE [place] tablet 00 TONGUE Medical EVERY 5 Branch MINUTES NEEDED FOR CHEST PAIN. NITROGLYCER 2021-[id number] 1 Univers IN 0.4 mg 0-24 TABLET ity of sublingual 00:00: UNDER THE [place] tablet 00 TONGUE Medical EVERY 5 Branch MINUTES NEEDED FOR CHEST PAIN. NITROGLYCER 2021-[id number] 1 Univers IN 0.4 mg 0-24 TABLET ity of sublingual 00:00: UNDER THE [place] tablet 00 TONGUE Medical EVERY 5 Branch MINUTES NEEDED FOR CHEST PAIN. NITROGLYCER 2021-[id number] 1 [facility] IN 0.4 mg 0-24 TABLET ity of sublingual 00:00: UNDER THE [place] tablet 00 TONGUE Medical EVERY 5 Branch MINUTES NEEDED FOR CHEST PAIN. NITROGLYCER 2021-[id number] 1 [facility] IN 0.4 mg 0-24 TABLET ity of sublingual 00:00: UNDER THE [place] tablet 00 TONGUE Medical EVERY 5 Branch MINUTES NEEDED FOR CHEST PAIN. NITROGLYCER 2021-[id number] 1 [facility] IN 0.4 mg 0-24 TABLET ity of sublingual 00:00: UNDER THE [place] tablet 00 TONGUE Medical EVERY 5 Branch MINUTES NEEDED FOR CHEST PAIN. NITROGLYCER 2021-[id number] 1 [facility] IN 0.4 mg 0-24 TABLET ity of sublingual 00:00: UNDER THE [place] tablet 00 TONGUE Medical EVERY 5 Branch MINUTES NEEDED FOR CHEST PAIN. NITROGLYCER 2021-[id number] 1 [facility] IN 0.4 mg 0-24 TABLET ity of sublingual 00:00: UNDER THE [place] tablet 00 TONGUE Medical EVERY 5 Branch MINUTES NEEDED FOR CHEST PAIN. NITROGLYCER 2021-[id number] 1 [facility] IN 0.4 mg 0-24 TABLET ity of sublingual 00:00: UNDER THE [place] tablet 00 TONGUE Medical EVERY 5 Branch MINUTES NEEDED FOR CHEST PAIN. mesalamine 2021-11 Yes TAKE 4 Unive rs (APRISO) 0-24 CAPSULES ity of 0.375 gram 00:00: BY MOUTH [place] 24 hr 00 DAILY MD capsule [facility] mesalamine 2021-11 Yes TAKE 4 Unive rs (APRISO) 0-24 CAPSULES ity of 0.375 gram 00:00: BY MOUTH [place] 24 hr 00 DAILY MD capsule [facility] mesalamine 2021-11 Yes TAKE 4 Unive rs (APRISO) 0-24 CAPSULES ity of 0.375 gram 00:00: BY MOUTH [place] 24 hr 00 DAILY MD capsule [facility] GABAPENTIN 2021-11 Yes [id number] TAKE 1 [facility] 600 mg 0-21 TABLET BY ity of tablet 00:00: MOUTH 00 THREE Medical TIMES Branch DAILY GABAPENTIN 2- Yes [id number] TAKE 1 [facility] 600 mg 0-21 TABLET BY ity of tablet 00:00: MOUTH THREE Medical TIMES Branch DAILY GABAPENTIN 2- Yes [id number] TAKE 1 [facility] 600 mg 0-21 TABLET BY ity of tablet 00:00: MOUTH THREE Medical TIMES Branch DAILY GABAPENTIN 2- Yes [id number] TAKE 1 [facility] 600 mg 0-21 TABLET BY ity of tablet 00:00: MOUTH THREE Medical TIMES Branch DAILY GABAPENTIN 2-1 Yes [id number] TAKE 1 [facility] 600 mg 0-21 TABLET BY ity of tablet 00:00: MOUTH THREE Medical TIMES Branch DAILY GABAPENTIN 2- Yes [id number] TAKE 1 [facility] 600 mg 0-21 TABLET BY ity of tablet 00:00: MOUTH THREE Medical TIMES Branch DAILY GABAPENTIN 2- Yes [id number] TAKE 1 [facility] 600 mg 0-21 TABLET BY ity of tablet 00:00: [facility] THREE Medical TIMES Branch DAILY GABAPENTIN 2- Yes [id number] TAKE 1 [facility] 600 mg 0-21 TABLET BY ity of tablet 00:00: MOUTH 00 THREE Medical TIMES Branch DAILY GABAPENTIN 2- Yes [id number] TAKE 1 [facility] 600 mg 0-21 TABLET BY ity of tablet 00:00: MOUTH 00 THREE Medical TIMES Branch DAILY GABAPENTIN 2-1 Yes [id number] TAKE 1 [facility] 600 mg 0-21 TABLET BY ity of tablet 00:00: [facility] THREE Medical TIMES Branch DAILY GABAPENTIN 2- Yes [id number] TAKE 1 [facility] 600 mg 0-21 TABLET BY ity of tablet 00:00: MOUTH THREE Medical TIMES Branch DAILY GABAPENTIN 2021-2021- No [id number] TAKE 1 [facility] 600 mg 0-21 11-17 TABLET BY ity of tablet 00:00: 00:00 MOUTH [place] 00 :00 THREE Medical TIMES Branch DAILY sucralfate 2021-11- No TAKE 1 Univ ers (CARAFATE) 0-20 02-14 TABLET BY ity of 1 g tablet 00:00: 00:00 MOUTH [place] 00 :00 TWICE MD DAILY [facility] sucralfate 2021-11- No TAKE 1 Univ ers (CARAFATE) 0-20 02-14 TABLET BY ity of 1 g tablet 00:00: 00:00 MOUTH [place] 00 :00 TWICE MD DAILY [facility] [facility] sucralfate 2021-11- No TAKE 1 [facility] (CARAFATE) 0-20 02-14 TABLET BY ity of 1 g tablet 00:00: 00:00 MOUTH [place] 00 :00 TWICE MD DAILY [facility] sucralfate 2021-11- No TAKE 1 [facility] (CARAFATE) 0-20 02-14 TABLET BY ity of 1 g tablet 00:00: 00:00 MOUTH [place] 00 :00 TWICE MD DAILY [facility] HYDROcodone 2021-11 Yes 2745 1{tbl} Take [...] Indication s: chronic pain HYDRALAZINE 2021-11 Yes [id number] TAKE 1 [facility] 100 mg 0-05 TABLET BY ity of tablet 00:00: MOUTH [place] 00 THREE Medical TIMES Branch DAILY HYDRALAZINE 2021-11 Yes [id number] TAKE 1 [facility] 100 mg 0-05 TABLET BY ity of tablet 00:00: MOUTH [place] 00 THREE Medical TIMES Branch DAILY HYDRALAZINE 2021-11 Yes [id number] TAKE 1 [facility] 100 mg 0-05 TABLET BY ity of tablet 00:00: MOUTH [place] 00 THREE Medical TIMES Branch DAILY HYDRALAZINE 2021-11 Yes [id number] TAKE 1 [facility] 100 mg 0-05 TABLET BY ity of tablet 00:00: MOUTH [place] 00 THREE Medical TIMES Branch DAILY HYDRALAZINE 2021-11 Yes [id number] TAKE 1 [facility] 100 mg 0-05 TABLET BY ity of tablet 00:00: MOUTH [place] THREE Medical TIMES Branch DAILY HYDRALAZINE 2021-11 Yes [id number] TAKE 1 [facility] 100 mg 0-05 TABLET BY ity of tablet 00:00: MOUTH [place] 00 THREE Medical TIMES Branch DAILY HYDRALAZINE 2021-11 Yes [id number] TAKE 1 [facility] 100 mg 0-05 TABLET BY ity of tablet 00:00: MOUTH [place] THREE Medical TIMES Branch DAILY HYDRALAZINE 2021-11 Yes [id number] TAKE 1 [facility] 100 mg 0-05 TABLET BY ity of tablet 00:00: MOUTH [place] 00 THREE Medical TIMES Branch DAILY HYDRALAZINE 2021-11 Yes [id number] TAKE 1 [facility] 100 mg 0-05 TABLET BY ity of tablet 00:00: MOUTH [place] THREE Medical TIMES Branch DAILY HYDRALAZINE 2021-11 Yes [id number] TAKE 1 [facility] 100 mg 0-05 TABLET BY ity of tablet 00:00: MOUTH [place] THREE Medical TIMES Branch DAILY HYDRALAZINE 2021-11 Yes [id number] TAKE 1 [facility] 100 mg 0-05 TABLET BY ity of tablet 00:00: MOUTH [place] THREE Medical TIMES Branch DAILY HYDRALAZINE 2021-11- No [id number] TAKE 1 [facility] 100 mg 0-05 11-03 [...] Medical x 5/16 Syrg Branch GABAPENTIN Yes [id number] TAKE 1 [facility] 600 mg 9-26 TABLET BY ity of tablet 00:00: MOUTH [place] 00 THREE Medical TIMES Branch DAILY NITROGLYCER 0 [...] 00 Medical x 5/16 Syrg Branch GABAPENTIN 2021- Yes [id number] TAKE 1 [facility] 600 mg 9-26 TABLET [...] x 5/16 Syrg Branch GABAPENTIN 2-0 Yes [id number] TAKE 1 [facility] 600 mg 9-26 TABLET [...] x 5/16 Syrg Branch GABAPENTIN 2021-0 Yes [id number] TAKE 1 [facility] 600 mg 9-26 TABLET [...] y of DLE U-100 1 00:00: MEALS [facility] 31 gauge 00 Medical x 5/16 Syrg Branch amLODIPine 2022-0 Yes 5mg Take 5 mg Un ally 5 mg tablet 9-26 by mouth ity of 00:00: in the [place] morning. Medical Branch INSULIN 2022-0 Yes USE TWICE Unive rs SYRINGE-NEE 9-26 DAILY WITH it y of DLE U-100 1 00:00: MEALS [facility] 31 gauge 00 Medical x 5/16 Syrg Branch amLODIPine 2022-0 Yes 5mg Take 5 mg Un ally 5 mg tablet 9-26 by mouth ity of 00:00: in the [place] morning. Medical Branch INSULIN 2-0 Yes USE TWICE Unive rs SYRINGE-NEE 9-26 DAILY WITH it y of DLE U-100 1 00:00: MEALS [facility] 31 gauge 00 Medical x 5/16 Syrg Branch amLODIPine 2-0 Yes 5mg Take 5 mg Un ally 5 mg tablet 9-26 by mouth ity of 00:00: in the [place] morning. Medical Branch INSULIN 2-0 Yes USE TWICE Unive rs SYRINGE-NEE 9-26 DAILY WITH it y of DLE U-100 1 00:00: MEALS [facility] 31 gauge 00 Medical x 5/16 Syrg Branch amLODIPine 2-0 Yes 5mg Take 5 mg Un ally 5 mg tablet 9-26 by mouth ity of 00:00: in the [place] morning. Medical Branch INSULIN 2022-0 Yes USE TWICE Unive rs SYRINGE-NEE 9-26 DAILY WITH it y of DLE U-100 1 00:00: MEALS [facility] 31 gauge 00 Medical x 5/16 Syrg Branch amLODIPine 2022-0 Yes 5mg Take 5 mg Un ally 5 mg tablet 9-26 by mouth ity of 00:00: in the [place] morning. Medical Branch INSULIN 2022-0 Yes USE TWICE Unive rs SYRINGE-NEE 9-26 DAILY WITH it y of DLE U-100 1 00:00: MEALS [place] mL 31 gauge 00 Medical x 5/16 Syrg Branch amLODIPine 2022-0 Yes 5mg Take 5 mg Un ally 5 mg tablet 9-26 by mouth ity of 00:00: in the [place] morning. Medical Branch INSULIN 2022-0 Yes USE TWICE Unive rs SYRINGE-NEE 9-26 DAILY WITH it y of DLE U-100 1 00:00: MEALS [place] mL 31 gauge 00 Medical x 5/16 Syrg Branch amLODIPine 2022-0 Yes 5mg Take 5 mg Un ally 5 mg tablet 9-26 by mouth ity of 00:00: in the [place] morning. Medical Branch INSULIN 2-0 Yes USE TWICE Unive rs SYRINGE-NEE 9-26 DAILY WITH it y of DLE U-100 1 00:00: MEALS [place] mL 31 gauge 00 Medical x 5/16 Syrg Branch amLODIPine 2-0 Yes 5mg Take 5 mg Un ally 5 mg tablet 9-26 by mouth ity of 00:00: in the [place] morning. Medical Branch INSULIN 2-0 Yes USE TWICE Unive rs SYRINGE-NEE 9-26 DAILY WITH it y of DLE U-100 1 00:00: MEALS [place] mL 31 gauge 00 Medical x 5/16 Syrg Branch amLODIPine 2-0 Yes 5mg Take 5 mg Un ally 5 mg tablet 9-26 by mouth ity of 00:00: in the [place] morning. Medical Branch INSULIN 2-0 Yes USE TWICE Unive rs SYRINGE-NEE 9-26 DAILY WITH it y of DLE U-100 1 00:00: MEALS [facility] 31 gauge 00 Medical x 5/16 Syrg Branch amLODIPine 2-0 Yes 5mg Take 5 mg Un ally 5 mg tablet 9-26 by mouth ity of 00:00: in the [place] morning. Medical Branch INSULIN 2-0 Yes USE TWICE Unive rs SYRINGE-NEE 9-26 DAILY WITH it y of DLE U-100 1 00:00: MEALS [facility] 31 gauge 00 Medical x 5/16 Syrg Branch amLODIPine 2022-0 Yes 5mg Take 5 mg Un ally 5 mg tablet 9-26 by mouth ity of 00:00: in the [place] 00 morning. Medical Branch INSULIN 2022-0 Yes USE TWICE Unive rs SYRINGE-NEE 9-26 DAILY WITH it y of DLE U-100 1 00:00: MEALS [place] mL 31 gauge 00 Medical x 5/16 Syrg Branch amLODIPine 2022-0 Yes 5mg Take 5 mg Un ally 5 mg tablet 9-26 by mouth ity of 00:00: in the [place] 00 morning. Medical Branch INSULIN 2022-0 Yes USE TWICE Unive rs SYRINGE-NEE 9-26 DAILY WITH it y of DLE U-100 1 00:00: MEALS [place] mL 31 gauge 00 Medical x 5/16 Syrg Branch amLODIPine 2022-0 Yes 5mg Take 5 mg Un ally 5 mg tablet 9-26 by mouth ity of 00:00: in the [place] morning. Medical Branch INSULIN 2022-0 Yes USE TWICE Unive rs SYRINGE-NEE 9-26 DAILY WITH it y of DLE U-100 1 00:00: MEALS [place] mL 31 gauge 00 Medical x 5/16 Syrg Branch amLODIPine 2-0 Yes 5mg Take 5 mg Un ally 5 mg tablet 9-26 by mouth ity of 00:00: in the [place] morning. Medical Branch INSULIN 2022-0 Yes USE TWICE Unive rs SYRINGE-NEE 9-26 DAILY WITH it y of DLE U-100 1 00:00: MEALS [facility] 31 gauge 00 Medical x 5/16 Syrg Branch amLODIPine 2-0 Yes 5mg Take 5 mg Un ally 5 mg tablet 9-26 by mouth ity of 00:00: in the [place] morning. Medical Branch INSULIN 2022-0 Yes USE TWICE Unive rs SYRINGE-NEE 9-26 DAILY WITH it y of DLE U-100 1 00:00: MEALS [facility] 31 gauge 00 Medical x 5/16 Syrg Branch amLODIPine 2-0 Yes 5mg Take 5 mg Un ally 5 mg tablet 9-26 by mouth ity of 00:00: in the [place] morning. Medical Branch INSULIN 2022-0 Yes USE TWICE Unive rs SYRINGE-NEE 9-26 DAILY WITH it y of DLE U-100 1 00:00: MEALS [place] mL 31 gauge 00 Medical x 5/16 Syrg Branch amLODIPine 2022-0 Yes 5mg Take 5 mg Un ally 5 mg tablet 9-26 by mouth ity of 00:00: in the [place] morning. Medical Branch INSULIN 2022-0 Yes USE TWICE Unive rs SYRINGE-NEE 9-26 DAILY WITH it y of DLE U-100 1 00:00: MEALS [place] mL 31 gauge 00 Medical x 5/16 Syrg Branch amLODIPine 2022-0 Yes 5mg Take 1 Unive rs 5 mg tablet 9-26 tablet by ity of 00:00: mouth in [place] 00 the Medical morning. Branch INSULIN Yes USE TWICE Unive rs SYRINGE-NEE 9-26 DAILY WITH it y of DLE U-100 1 00:00: MEALS [place] mL 31 gauge 00 Medical x 03/16 Syrg Branch amLODIPine 0 Yes 5mg Take 1 Unive rs 5 mg tablet 9-26 tablet by ity of 00:00: mouth in [place] 00 the Medical morning. Branch NITROGLYCER 0 2021- No PLACE 1 Un ally IN 0.4 mg 9-26 10-24 TABLET ity of sublingual 00:00: 00:00 [place]ER THE [place] tablet 00 :00 TONGUE Medical EVERY 5 Branch MINUTES NEEDED FOR CHEST PAIN. GABAPENTIN 0 2021- No [id number] TAKE 1 [facility] 600 mg 9-26 10-21 TABLET BY ity of tablet 00:00: 00:00 MOUTH [place] 00 :00 THREE Medical TIMES Branch DAILY Motegrity 2 Yes TAKE 1 [facility] ers mg tab 9-25 TABLET BY ity of 00:00: MOUTH [place] DAILY MD [facility] Motegrity 2 0 Yes TAKE 1 Univ ers mg tab 9-25 TABLET BY ity of 00:00: MOUTH [place] DAILY MD [facility] Motegrity 2 0 Yes TAKE 1 [facility] ers mg tab 9-25 TABLET BY ity of 00:00: MOUTH [place] DAILY MD [facility] Motegrity 2 2021-0 Yes TAKE 1 Univ ers mg tab 9-25 TABLET BY ity of 00:00: MOUTH [place] DAILY MD [facility] COLCHICINE 0 Yes [id number] .6mg TAKE 1 U nivers 0.6 mg 9-19 TABLET BY ity of tablet 00:00: MOUTH [place] 00 DAILY Medical Branch COLCHICINE 2021-0 Yes [id number] .6mg TAKE 1 U nivers 0.6 mg 9-19 TABLET BY ity of tablet 00:00: MOUTH [place] DAILY Medical Branch COLCHICINE 2021-0 Yes [id number] .6mg TAKE 1 U nivers 0.6 mg 9-19 TABLET BY ity of tablet 00:00: MOUTH [place] DAILY Medical Branch COLCHICINE 2021-0 Yes [id number] .6mg TAKE 1 U nivers 0.6 mg 9-19 TABLET BY ity of tablet 00:00: MOUTH [place] DAILY Medical Branch COLCHICINE 2022-0 Yes [id number] .6mg TAKE 1 U nivers 0.6 mg 9-19 TABLET BY ity of tablet 00:00: MOUTH [place] DAILY Medical Branch COLCHICINE 2022-0 Yes [id number] .6mg TAKE 1 [facility]ivers 0.6 mg 9-19 TABLET BY ity of tablet 00:00: MOUTH [place] DAILY Medical Branch COLCHICINE 2022-0 Yes [id number] .6mg TAKE 1 U nivers 0.6 mg 9-19 TABLET BY ity of tablet 00:00: MOUTH [place] DAILY Medical Branch COLCHICINE 2022-0 Yes [id number] .6mg TAKE 1 U nivers 0.6 mg 9-19 TABLET BY ity of tablet 00:00: [facility] DAILY Medical Branch COLCHICINE 2022-0 Yes [id number] .6mg TAKE 1 U nivers 0.6 mg 9-19 TABLET BY ity of tablet 00:00: [facility] DAILY Medical Branch COLCHICINE 2022-0 Yes [id number] .6mg TAKE 1 U nivers 0.6 mg 9-19 TABLET BY ity of tablet 00:00: MOUTH [place] DAILY Medical Branch COLCHICINE 2022-0 Yes [id number] .6mg TAKE 1 U nivers 0.6 mg 9-19 TABLET BY ity of tablet 00:00: [facility] DAILY Medical Branch COLCHICINE 2022-0 Yes [id number] .6mg TAKE 1 U nivers 0.6 mg 9-19 TABLET BY ity of tablet 00:00: [facility] DAILY Medical Branch COLCHICINE 2022-0 Yes [id number] .6mg TAKE 1 U nivers 0.6 mg 9-19 TABLET BY ity of tablet 00:00: MOUTH [place] DAILY Medical Branch COLCHICINE 2022-0 Yes [id number] .6mg TAKE 1 U nivers 0.6 mg 9-19 TABLET BY ity of tablet 00:00: [facility] DAILY Medical Branch COLCHICINE 2022-0 Yes [id number] .6mg TAKE 1 U nivers 0.6 mg 9-19 TABLET BY ity of tablet 00:00: MOUTH [place] DAILY Medical Branch COLCHICINE 2022-0 Yes [id number] .6mg TAKE 1 U [facility]ivers 0.6 mg 9-19 TABLET BY ity of tablet 00:00: MOUTH [place] DAILY Medical Branch COLCHICINE 2022-0 Yes [id number] .6mg TAKE 1 [facility]ivers 0.6 mg 9-19 TABLET BY ity of tablet 00:00: MOUTH DAILY Medical Branch COLCHICINE 2022-0 Yes [id number] .6mg TAKE 1 U nivers 0.6 mg 9-19 TABLET BY ity of tablet 00:00: [facility] DAILY Medical Branch COLCHICINE 2022-0 Yes [id number] .6mg TAKE 1 U nivers 0.6 mg 9-19 TABLET BY ity of tablet 00:00: MOUTH DAILY Medical Branch COLCHICINE 2022-0 Yes [id number] .6mg TAKE 1 U nivers 0.6 mg 9-19 TABLET BY ity of tablet 00:00: [facility] DAILY Medical Branch COLCHICINE 2022-0 Yes [id number] .6mg TAKE 1 U nivers 0.6 mg 9-19 TABLET BY ity of tablet 00:00: [facility] DAILY Medical Branch COLCHICINE 2022-0 Yes [id number] .6mg TAKE 1 U nivers 0.6 mg 9-19 TABLET BY ity of tablet 00:00: [facility] DAILY Medical Branch COLCHICINE 2022-0 Yes [id number] .6mg TAKE 1 U nivers 0.6 mg 9-19 TABLET BY ity of tablet 00:00: [facility] DAILY Medical Branch COLCHICINE 2022-0 Yes [id number] .6mg TAKE 1 U nivers 0.6 mg 9-19 TABLET BY ity of tablet 00:00: [facility] DAILY Medical Branch COLCHICINE 2022-0 Yes [id number] .6mg TAKE 1 U nivers 0.6 mg 9-19 TABLET BY ity of tablet 00:00: [facility] DAILY Medical Branch COLCHICINE 2022-0 Yes [id number] .6mg TAKE 1 U nivers 0.6 mg 9-19 TABLET BY ity of tablet 00:00: [facility] DAILY Medical Branch COLCHICINE 2022-0 Yes [id number] .6mg TAKE 1 U nivers 0.6 mg 9-19 TABLET BY ity of tablet 00:00: [facility] DAILY Medical Branch COLCHICINE 2022-0 Yes [id number] .6mg TAKE 1 U nivers 0.6 mg 9-19 TABLET BY ity of tablet 00:00: MOUTH [place] DAILY Medical Branch COLCHICINE 2022-0 Yes [id number] .6mg TAKE 1 U nivers 0.6 mg 9-19 TABLET BY ity of tablet 00:00: MOUTH [place] 00 DAILY Medical Branch COLCHICINE 2-0 Yes [id number] .6mg TAKE 1 U nivers 0.6 mg 9-19 TABLET BY ity of tablet 00:00: MOUTH [place] 00 DAILY Medical Branch COLCHICINE 2021-0 Yes [id number] .6mg TAKE 1 U nivers 0.6 mg 9-19 TABLET BY ity of tablet 00:00: MOUTH [place] 00 DAILY Medical Branch COLCHICINE 2022-0 2023- No [id number] .6mg TAKE 1 [facility] 0.6 mg 9-19 [...] 2745 1{tbl} Take 1 Un ally -acetaminop -08 tablet by ity of hen 7.5-325 00:00: mouth [place] mg per 00 every 6 Medical tablet (six) Branch hours as needed for Pain. Indication s: chronic pain HYDROcodone 2- No 2745 1{tbl} Take 1 U nivers -acetaminop -08 10-06 tablet by it y of hen 7.5-325 00:00: 00:00 mouth [place] mg per 00 :00 every 6 Medical tablet (six) Branch hours as needed for Pain. Indication s: chronic pain albuterol Yes albuterol [facility] (PROVENTIL) 07-08 sulfate [facility] ge (2.5 mg/3 12:00: 2.5 mg/3 of mL) 0.083% 32 mL (0.083 Medi patsy nebulizer %) e solution solution for nebulizati on metoprolol Yes 100mg Take 100 [facility] (TOPROL-XL) 07-08 mg by [place] 100 MG XL 12:00: mouth. of tablet 32 Medicin e albuterol Yes albuterol [facility] 108 (90 07-08 sulfate [place] base) 12:00: HFA 90 of mcg/act 32 mcg/actuat Medici n inhaler ion e aerosol inhaler Mesalamine Yes mesalamine [facility] 0.375 g 07-08 ER 0.375 [place] CP24 12:00: gram of 32 capsule,ex Medicin [...] SPASM OR EAR PAIN clonidine Yes clonidine [facility] (CATAPRESS) 07-08 HCl 0.2 mg Co [facility]lege 0.2 MG 12:00: tablet of tablet 32 TAKE 1 Medicin TABLET BY e MOUTH THREE TIMES DAILY atorvastati Yes atorvastat [facility] n (LIPITOR) 07-08 in 20 [...] 100 [facility] (ZYLOPRIM) 07-08 mg by [place] 100 MG 12:00: mouth. of tablet 32 Medicin e Fluticasone Yes Trelegy [facility] -Umeclidin- 07-08 Ellipta Colle [facility] Vilant 12:00: 100 of (TRELEGY 32 mcg-62.5 Medicin ELLIPTA) mcg-25 mcg e 100-62.5-25 powder for MCG/INH inhalation AEPB INHALE 1 PUFF BY MOUTH EVERY DAY albuterol Yes albuterol [facility] (PROVENTIL) 07-08 sulfate Colle ge (2.5 mg/3 12:00: 2.5 mg/3 of mL) 0.083% 32 mL (0.083 Medi patsy nebulizer %) e solution solution for nebulizati on metoprolol Yes 100mg Take 100 [facility] (TOPROL-XL) 07-08 mg by [place] 100 MG XL 12:00: mouth. of tablet 32 Medicin e albuterol Yes albuterol [facility] 108 (90 07-08 sulfate [place] base) 12:00: HFA 90 of mcg/act 32 mcg/actuat Medici n inhaler ion e aerosol inhaler Mesalamine Yes mesalamine [facility] 0.375 g 07-08 ER 0.375 College CP24 12:00: gram of 32 capsule,ex Medicin tended e release 24 hr hydrochloro Yes 25mg Take 25 mg [facility] thiazide 07-08 by mouth. Colleg e (HYDRODIURI 12:00: of L) 25 MG 32 Medicin tablet e diclofenac Yes diclofenac [facility] (VOLTAREN) 07-08 sodium 75 An ege 75 MG EC 12:00: mg of tablet 32 tablet,del Medicin ayed e release TAKE 1 TABLET BY MOUTH TWICE DAILY WITH MEALS cyclobenzap Yes cyclobenza [facility] rine 07-08 [facility] 10 [facility] (FLEXERIL) 12:00: mg tablet of 10 MG 32 TAKE 1 Medicin tablet TABLET BY e MOUTH EVERY NIGHT AT BEDTIME NEEDED FOR MUSCLE SPASM OR EAR PAIN clonidine Yes clonidine [facility] (CATAPRESS) 07-08 HCl 0.2 mg Co [facility] 0.2 MG 12:00: tablet of tablet 32 TAKE 1 Medicin TABLET BY e MOUTH THREE TIMES DAILY atorvastati Yes atorvastat [facility] n (LIPITOR) 07-08 in 20 [...] tablet 32 Medicin e Fluticasone Yes Trelegy [facility] -Umeclidin- 07-08 [facility] 12:00: 100 of (TRELEGY 32 mcg-62.5 Medicin ELLIPTA) mcg-25 mcg e 100-62.5-25 powder for MCG/INH inhalation AEPB INHALE 1 PUFF BY MOUTH EVERY DAY albuterol Yes albuterol [facility] (PROVENTIL) 07-08 sulfate Colle ge (2.5 mg/3 12:00: 2.5 mg/3 of mL) 0.083% 32 mL (0.083 Medi patsy nebulizer %) e solution solution for nebulizati on metoprolol Yes 100mg Take 100 [facility] (TOPROL-XL) 07-08 mg by [facility] 100 MG XL 12:00: mouth. of tablet 32 Medicin e albuterol Yes albuterol [facility] 108 (90 07-08 sulfate [facility] base) 12:00: HFA 90 of mcg/act 32 mcg/actuat Medici n inhaler ion e aerosol inhaler Mesalamine Yes mesalamine [facility] 0.375 g 07-08 ER 0.375 [place] CP24 12:00: gram of 32 capsule,ex Medicin [...] Yes cyclobenza [facility] rine 07-08 [place] 10 [place] (FLEXERIL) 12:00: mg tablet of 10 MG 32 TAKE 1 Medicin tablet TABLET BY e MOUTH EVERY NIGHT AT BEDTIME NEEDED FOR MUSCLE SPASM OR EAR PAIN clonidine Yes clonidine [facility] (CATAPRESS) 07-08 HCl 0.2 mg Co [facility] 0.2 MG 12:00: tablet of tablet 32 TAKE 1 Medicin TABLET BY e MOUTH THREE TIMES DAILY atorvastati Yes atorvastat [facility] n (LIPITOR) 07-08 in 20 [...] 100 [facility] (ZYLOPRIM) 9-07 mg by [place] 100 MG 12:00: mouth. of tablet 32 Medicin e Fluticasone Yes Ludmilarekha [facility] -Umeclidin- 9-07 [facility] 12:00: 100 of (TRELEGY 32 mcg-62.5 Medicin ELLIPTA) mcg-25 mcg e 100-62.5-25 powder for MCG/INH inhalation AEPB INHALE 1 PUFF BY MOUTH EVERY DAY HYDRALAZINE 2021-0 Yes [id number] TAKE 1 [facility] 100 mg 9-06 TABLET BY ity of tablet 00:00: MOUTH [place] 00 THREE Medical TIMES Branch DAILY HYDRALAZINE 2021-0 Yes [id number] TAKE 1 [facility] 100 mg 9-06 TABLET BY ity of tablet 00:00: MOUTH [place] 00 THREE Medical TIMES Branch DAILY HYDRALAZINE 2021-0 Yes [id number] TAKE 1 [facility] 100 mg 9-06 TABLET BY ity of tablet 00:00: MOUTH [place] 00 THREE Medical TIMES Branch DAILY HYDRALAZINE 2021-0 Yes [id number] TAKE 1 [facility] 100 mg 9-06 TABLET BY ity of tablet 00:00: MOUTH [place] 00 THREE Medical TIMES Branch DAILY HYDRALAZINE 2021-0 Yes [id number] TAKE 1 [facility] 100 mg 9-06 TABLET BY ity of tablet 00:00: MOUTH [place] 00 THREE Medical TIMES Branch DAILY HYDRALAZINE 2021-0 Yes [id number] TAKE 1 [facility] 100 mg 9-06 TABLET BY ity of tablet 00:00: MOUTH [place] 00 THREE Medical TIMES Branch DAILY HYDRALAZINE 2021-0 2021- No [id number] TAKE 1 [facility] 100 mg 9-06 10-05 TABLET BY ity of tablet 00:00: 00:00 MOUTH [place] 00 :00 THREE Medical TIMES Branch DAILY GABAPENTIN 2021-0 Yes [id number] TAKE 1 [facility] 600 mg 8-31 TABLET BY ity of tablet 00:00: MOUTH [place] 00 THREE Medical TIMES Branch DAILY GABAPENTIN 2-0 Yes [id number] TAKE 1 [facility] 600 mg 8-31 TABLET BY ity of tablet 00:00: MOUTH [place] 00 THREE Medical TIMES Branch DAILY GABAPENTIN 2-0 Yes [id number] TAKE 1 [facility] 600 mg 8-31 TABLET BY ity of tablet 00:00: MOUTH [place] 00 THREE Medical TIMES Branch DAILY GABAPENTIN 2021-0 Yes [id number] TAKE 1 [facility] 600 mg 8-31 TABLET BY ity of tablet 00:00: MOUTH [place] 00 THREE Medical TIMES Branch DAILY GABAPENTIN 2021-0 2021- No [id number] TAKE 1 [facility] 600 mg 8-31 09-26 TABLET BY ity of tablet 00:00: 00:00 MOUTH [place] 00 :00 THREE Medical TIMES Branch DAILY metoprolol 2021-0 Yes [id number] TAKE 1 [facility] (LOPRESSOR) 8-22 TABLET BY Col lege 100 MG 00:00: MOUTH of tablet 00 TWICE Medicin DAILY e metoprolol 0 Yes [id number] TAKE 1 [facility] (LOPRESSOR) 8-22 TABLET BY Col lege 100 MG 00:00: MOUTH of tablet 00 TWICE Medicin DAILY e metoprolol Yes [id number] TAKE 1 [facility] (LOPRESSOR) 8-22 TABLET BY Col [...] TWICE Medical DAILY Branch BD PEN Yes [id number] USE [facility] or NEEDLE DEVORAH 06-17 DIRECTED An ege 2ND GEN 32G 00:00: EVERY DAY o f X 4 MM MISC 00 Medicin e alprazolam 0 Yes [id number] TAKE 1 [facility] (XANAX) 2 8-17 TABLET BY Colle ge MG tablet 00:00: MOUTH of 00 THREE Medicin TIMES e DAILY NEEDED FOR ANXIETY BD PEN 2021-0 Yes [id number] USE [facility] NEEDLE DEVORAH 8-17 DIRECTED An ege 2ND GEN 32G 00:00: EVERY DAY o f X 4 MM MISC 00 Medicin e alprazolam 0 Yes [id number] TAKE 1 [facility] (XANAX) 2 8-17 TABLET BY Colle ge MG tablet 00:00: MOUTH of 00 THREE Medicin TIMES e DAILY NEEDED FOR ANXIETY BD PEN 0 Yes [id number] USE [facility] NEEDLE DEVORAH 8-17 DIRECTED An ege 2ND GEN 32G 00:00: EVERY DAY o f X 4 MM MISC 00 Medicin e alprazolam 0 Yes [id number] TAKE 1 [facility] (XANAX) 2 8-17 TABLET BY Colle ge MG tablet 00:00: MOUTH of 00 THREE Medicin TIMES e DAILY NEEDED FOR ANXIETY albuterol Yes albuterol [facility] (PROVENTIL) 8-16 sulfate Colle ge (2.5 mg/3 08:03: 2.5 mg/3 of mL) 0.083% 35 mL (0.083 Medi patsy nebulizer %) e solution solution for nebulizati on Insulin Yes Inject [facility] Aspart Prot 8-16 into the An ege & Aspart 08:03: skin. of (70-30) 100 35 Medicin UNIT/ML e SUPN mirtazapine Yes 15mg Take 15 mg [facility] (REMERON) 8-16 by mouth. Colle ge 15 MG 08:03: of tablet 35 Medicin e metoprolol Yes 100mg Take 100 [facility] (TOPROL-XL) 8-16 mg by [place] 100 MG XL 08:03: mouth. of tablet 35 Medicin e pantoprazol Yes 20mg Take 20 mg [facility] e 8-16 by mouth [place] (PROTONIX) 08:00: daily. of 20 MG 33 Medicin tablet e VICTOZA 18 2022-0 Yes ADMINISTER [facility] MG/3ML SOPN 8-11 [...] -acetaminop 8-09 TABLET BY Col lege hen ([employer] Sight) 00:00: MOUTH of 7.5-325 MG 00 EVERY 6 Medici n per tablet HOURS e NEEDED FOR PAIN OR CHRONIC PAIN lisinopril Yes TAKE 1/2 [facility] (PRINIVIL, 8-08 TABLET BY An ege ZESTRIL) 40 00:00: MOUTH of MG tablet 00 TWICE Medicin DAILY e hydrALAZINE 0 Yes TAKE 1 [facility] (APRESOLINE 8-08 TABLET BY Col lege ) 100 MG 00:00: MOUTH of tablet 00 THREE Medicin TIMES e DAILY lisinopril 0 Yes TAKE 1/2 [facility] (PRINIVIL, 8-08 TABLET BY An ege ZESTRIL) 40 00:00: MOUTH of MG tablet 00 TWICE Medicin DAILY e hydrALAZINE 2021-0 Yes TAKE 1 [facility] (APRESOLINE 8-08 TABLET BY Col lege ) 100 MG 00:00: MOUTH of tablet 00 THREE Medicin TIMES e DAILY lisinopril 0 Yes TAKE 1/2 [facility] (PRINIVIL, 8-08 TABLET BY An ege ZESTRIL) 40 00:00: MOUTH of MG tablet 00 TWICE Medicin DAILY e hydrALAZINE 0 Yes TAKE 1 [facility] (APRESOLINE 8-08 TABLET BY Col lege ) 100 MG 00:00: MOUTH of tablet 00 THREE Medicin TIMES e DAILY lisinopril 2021-0 Yes TAKE 1/2 [facility] (PRINIVIL, 8-08 TABLET BY An ege ZESTRIL) 40 00:00: MOUTH of MG tablet 00 TWICE Medicin DAILY e LISINOPRIL 2021-0 Yes [id number] TAKE 1/2 [facility] 40 mg 8-08 TABLET [...] Indication s: chronic pain LISINOPRIL 2-0 Yes [id number] TAKE 1/2 [facility] 40 mg 8-08 TABLET BY ity of tablet 00:00: MOUTH [place] 00 TWICE Medical DAILY Branch HYDROcodone 2-0 Yes [id number] 1{tbl} Take 1 Un ally -acetaminop 8-08 tablet by ity of hen 7.5-325 00:00: mouth [place] mg per 00 every 6 Medical tablet (six) Branch hours as needed for Pain. Indication s: chronic pain LISINOPRIL 2-0 Yes [id number] TAKE 1/2 [facility] 40 mg 8-08 TABLET BY ity of tablet 00:00: MOUTH [place] 00 TWICE Medical DAILY Branch HYDROcodone 2-0 Yes 2745 1{tbl} Take 1 [facility] ally -acetaminop 8-08 tablet by ity of hen 7.5-325 00:00: mouth [place] mg per 00 every 6 Medical tablet (six) Branch hours as needed for Pain. Indication s: chronic pain LISINOPRIL 2022-0 Yes [id number] TAKE 1/2 [facility] 40 mg 8-08 TABLET BY ity of tablet 00:00: MOUTH [place] 00 TWICE Medical DAILY Branch LISINOPRIL 2022-0 Yes [id number] TAKE 1/2 [facility] 40 mg 8-08 TABLET BY ity of tablet 00:00: MOUTH [place] 00 TWICE Medical DAILY Branch LISINOPRIL 2022-0 Yes [id number] TAKE 1/2 [facility] 40 mg 8-08 TABLET BY ity of tablet 00:00: MOUTH [place] 00 TWICE [facility] DAILY [facility] LISINOPRIL 2-0 Yes [id number] TAKE 1/2 [facility] 40 mg 8-08 TABLET BY [facility] tablet 00:00: MOUTH TWICE [facility] DAILY [facility] LISINOPRIL 2022-0 Yes [id number] TAKE 1/2 [facility] 40 mg 8-08 TABLET BY [facility] tablet 00:00: MOUTH TWICE [facility] DA[facility] LISINOPRIL 2022-0 Yes [id number] TAKE 1/2 [facility] 40 mg 8-08 TABLET BY [facility] of tablet 00:00: MOUTH TWICE Medical DAILY Branch LISINOPRIL 2022-0 Yes [id number] TAKE 1/2 [facility] 40 mg 8-08 TABLET BY [facility] of tablet 00:00: MOUTH TWICE Medical DAILY Branch LISINOPRIL 2022-0 Yes [id number] TAKE 1/2 [facility] 40 mg 8-08 TABLET BY [facility] of tablet 00:00: MOUTH TWICE Medical DAILY Branch LISINOPRIL 2022-0 Yes [id number] TAKE 1/2 [facility] 40 mg 8-08 TABLET BY [facility] of tablet 00:00: MOUTH TWICE Medical DAILY Branch LISINOPRIL 2022-0 Yes [id number] TAKE 1/2 [facility] 40 mg 8-08 TABLET BY [facility]y of tablet 00:00: MOUTH TWICE Medical DAILY Branch LISINOPRIL 2022-0 Yes [id number] TAKE 1/2 [facility] 40 mg 8-08 TABLET BY [facility]y of tablet 00:00: MOUTH TWICE Medical DAILY Branch LISINOPRIL 2022-0 Yes [id number] TAKE 1/2 [facility] 40 mg 8-08 TABLET BY [facility] of tablet 00:00: MOUTH TWICE Medical DAILY Branch LISINOPRIL 2022-0 Yes [id number] TAKE 1/2 [facility] 40 mg 8-08 TABLET BY [facility]y of tablet 00:00: MOUTH TWICE Medical DAILY Branch LISINOPRIL 2022-0 Yes [id number] TAKE 1/2 [facility] 40 mg 8-08 TABLET BY [facility]y of tablet 00:00: MOUTH TWICE Medical DAILY Branch LISINOPRIL 2022-0 Yes [id number] TAKE 1/2 [facility] 40 mg 8-08 TABLET BY [facility]y of tablet 00:00: MOUTH TWICE Medical DAILY Branch LISINOPRIL 2022-0 Yes [id number] TAKE 1/2 [facility] 40 mg 8-08 TABLET BY ity of tablet 00:00: MOUTH TWICE Medical DAILY Branch LISINOPRIL 2022-0 Yes [id number] TAKE 1/2 [facility] 40 mg 06-08 TABLET BY ity of tablet 00:00: MOUTH [place] 00 TWICE Medical DAILY Branch LISINOPRIL 2021- No [id number] TAKE 1/2 [facility] 40 mg 06-08 TABLET [...] 00 THREE Medicin TIMES e DAILY HUMULIN 0 Yes [id number] ADMINISTER [facility] 70/30 U-100 8-03 70 UNITS ity of INSULIN 100 00:00: [place] unit/mL 00 SKIN EVERY Medica l (70-30) MORNING Branch suspension THEN ADMINISTER 60 UNITS UNDER THE SKIN EVERY EVENING HUMULIN 2021-0 Yes [id number] ADMINISTER [facility] 70/30 U-100 8-03 70 UNITS ity of INSULIN 100 00:00: [place] unit/mL 00 SKIN EVERY Medica l (70-30) MORNING Branch suspension THEN ADMINISTER 60 UNITS UNDER THE SKIN EVERY EVENING GABAPENTIN 2021-0 Yes [id number] TAKE 1 [facility] 600 mg 8-03 TABLET BY ity of tablet 00:00: MOUTH THREE Medical TIMES Branch DAILY HUMULIN Yes [id number] ADMINISTER [facility] 70/30 U-100 8-03 70 UNITS ity of INSULIN 100 00:00: [place] unit/mL 00 SKIN EVERY Medica l (70-30) MORNING Branch suspension THEN ADMINISTER 60 UNITS UNDER THE SKIN EVERY EVENING GABAPENTIN 2021-0 Yes [id number] TAKE 1 [facility] 600 mg 8-03 TABLET BY ity of tablet 00:00: MOUTH THREE Medical TIMES Branch DAILY HUMULIN Yes [id number] ADMINISTER [facility] 70/30 U-100 8-03 70 UNITS ity of INSULIN 100 00:00: [place] unit/mL 00 SKIN EVERY Medica l (70-30) MORNING Branch suspension THEN ADMINISTER 60 UNITS UNDER THE SKIN EVERY EVENING GABAPENTIN 2021-0 Yes [id number] TAKE 1 [facility] 600 mg 8-03 TABLET BY ity of tablet 00:00: MOUTH THREE Medical TIMES Branch DAILY HUMULIN 2021-0 Yes [id number] ADMINISTER [facility] 70/30 U-100 8-03 70 UNITS ity of INSULIN 100 00:00: [place] [place] unit/mL 00 SKIN EVERY Medica l (70-30) MORNING Branch suspension THEN ADMINISTER 60 UNITS UNDER THE SKIN EVERY EVENING GABAPENTIN 2021-0 Yes [id number] TAKE 1 [facility] 600 mg 8-03 TABLET BY ity of tablet 00:00: MOUTH THREE Medical TIMES Branch DAILY HUMULIN 2021-0 Yes [id number] ADMINISTER [facility] 70/30 U-100 8-03 70 UNITS ity of INSULIN 100 00:00: [place] [place] unit/mL 00 SKIN EVERY Medica l (70-30) MORNING Branch suspension THEN ADMINISTER 60 UNITS UNDER THE SKIN EVERY EVENING HUMULIN Yes [id number] ADMINISTER [facility] 70/30 U-100 8-03 70 UNITS ity of INSULIN 100 00:00: [place] [place] unit/mL 00 SKIN EVERY Medica l (70-30) MORNING Branch suspension THEN ADMINISTER 60 UNITS UNDER THE SKIN EVERY EVENING HUMULIN Yes [id number] ADMINISTER [facility] 70/30 U-100 8-03 70 UNITS ity of INSULIN 100 00:00: [place] THE [place] unit/mL 00 SKIN EVERY Medica l (70-30) MORNING Branch suspension THEN ADMINISTER 60 UNITS UNDER THE SKIN EVERY EVENING HUMULIN Yes [id number] ADMINISTER [facility] 70/30 U-100 8-03 70 UNITS ity of INSULIN 100 00:00: [place] THE [place] unit/mL 00 SKIN EVERY Medica l (70-30) MORNING Branch suspension THEN ADMINISTER 60 UNITS UNDER THE SKIN EVERY EVENING HUMULIN Yes [id number] ADMINISTER [facility] 70/30 U-100 8-03 70 UNITS ity of INSULIN 100 00:00: [facility] THE [place] unit/mL 00 SKIN EVERY Medica l (70-30) MORNING Branch suspension THEN ADMINISTER 60 UNITS UNDER THE SKIN EVERY EVENING HUMULIN Yes [id number] ADMINISTER [facility] 70/30 U-100 8-03 70 UNITS ity of INSULIN 100 00:00: [facility] THE [place] unit/mL 00 SKIN EVERY Medica l (70-30) MORNING Branch suspension THEN ADMINISTER 60 UNITS UNDER THE SKIN EVERY EVENING HUMULIN Yes [id number] ADMINISTER [facility] 70/30 U-100 8-03 70 UNITS ity of INSULIN 100 00:00: [facility] THE [place] unit/mL 00 SKIN EVERY Medica l (70-30) MORNING Branch suspension THEN ADMINISTER 60 UNITS UNDER THE SKIN EVERY EVENING HUMULIN Yes [id number] ADMINISTER [facility] 70/30 U-100 8-03 70 UNITS ity of INSULIN 100 00:00: [facility] THE [place] unit/mL 00 SKIN EVERY Medica l (70-30) MORNING Branch suspension THEN ADMINISTER 60 UNITS UNDER THE SKIN EVERY EVENING HUMULIN Yes [id number] ADMINISTER [facility] 70/30 U-100 8-03 70 UNITS ity of INSULIN 100 00:00: [facility] THE [place] unit/mL 00 SKIN EVERY Medica l (70-30) MORNING Branch suspension THEN ADMINISTER 60 UNITS UNDER THE SKIN EVERY EVENING HUMULIN Yes [id number] ADMINISTER [facility] 70/30 U-100 8-03 70 UNITS ity of INSULIN 100 00:00: [facility] THE [place] unit/mL 00 SKIN EVERY Medica l (70-30) MORNING Branch suspension THEN ADMINISTER 60 UNITS UNDER THE SKIN EVERY EVENING HUMULIN Yes [id number] ADMINISTER [facility] 70/30 U-100 8-03 70 UNITS ity of INSULIN 100 00:00: [facility] THE [place] unit/mL 00 SKIN EVERY Medica l (70-30) MORNING Branch suspension THEN ADMINISTER 60 UNITS UNDER THE SKIN EVERY EVENING HUMULIN Yes [id number] ADMINISTER [facility] 70/30 U-100 8-03 70 UNITS ity of INSULIN 100 00:00: [facility] THE [place] unit/mL 00 SKIN EVERY Medica l (70-30) MORNING Branch suspension THEN ADMINISTER 60 UNITS UNDER THE SKIN EVERY EVENING HUMULIN Yes [id number] ADMINISTER [facility] 70/30 U-100 8-03 70 UNITS ity of INSULIN 100 00:00: [facility] THE [place] unit/mL 00 SKIN EVERY Medica l (70-30) MORNING Branch suspension THEN ADMINISTER 60 UNITS UNDER THE SKIN EVERY EVENING HUMULIN Yes [id number] ADMINISTER [facility] 70/30 U-100 8-03 70 UNITS ity of INSULIN 100 00:00: UNDER THE [place] unit/mL 00 SKIN EVERY Medica l (70-30) MORNING Branch suspension THEN ADMINISTER 60 UNITS UNDER THE SKIN EVERY EVENING HUMULIN Yes [id number] ADMINISTER [facility] 70/30 U-100 8-03 70 UNITS ity of INSULIN 100 00:00: UNDER THE [place] unit/mL 00 SKIN EVERY Medica l (70-30) MORNING Branch suspension THEN ADMINISTER 60 UNITS UNDER THE SKIN EVERY EVENING HUMULIN Yes [id number] ADMINISTER [facility] 70/30 U-100 8-03 70 UNITS ity of INSULIN 100 00:00: UNDER THE [place] unit/mL 00 SKIN EVERY Medica l (70-30) MORNING Branch suspension THEN ADMINISTER 60 UNITS UNDER THE SKIN EVERY EVENING HUMULIN Yes [id number] ADMINISTER [facility] 70/30 U-100 8-03 70 UNITS ity of INSULIN 100 00:00: UNDER THE [place] unit/mL 00 SKIN EVERY Medica l (70-30) MORNING Branch suspension THEN ADMINISTER 60 UNITS UNDER THE SKIN EVERY EVENING HUMULIN Yes [id number] ADMINISTER [facility] 70/30 U-100 8-03 70 UNITS ity of INSULIN 100 00:00: UNDER THE [place] unit/mL 00 SKIN EVERY Medica l (70-30) MORNING Branch suspension THEN ADMINISTER 60 UNITS UNDER THE SKIN EVERY EVENING HUMULIN Yes [id number] ADMINISTER [facility] 70/30 U-100 8-03 70 UNITS ity of INSULIN 100 00:00: UNDER THE [place] unit/mL 00 SKIN EVERY Medica l (70-30) MORNING Branch suspension THEN ADMINISTER 60 UNITS UNDER THE SKIN EVERY EVENING HUMULIN Yes [id number] ADMINISTER [facility] 70/30 U-100 8-03 70 UNITS ity of INSULIN 100 00:00: UNDER THE [place] unit/mL 00 SKIN EVERY Medica l (70-30) MORNING Branch suspension THEN ADMINISTER 60 UNITS UNDER THE SKIN EVERY EVENING HUMULIN Yes [id number] ADMINISTER [facility] 70/30 U-100 8-03 70 UNITS ity of INSULIN 100 00:00: UNDER THE [place] unit/mL 00 SKIN EVERY Medica l (70-30) MORNING Branch suspension THEN ADMINISTER 60 UNITS UNDER THE SKIN EVERY EVENING HUMULIN Yes [id number] ADMINISTER [facility] 70/30 U-100 8-03 70 UNITS ity of INSULIN 100 00:00: UNDER THE [place] unit/mL 00 SKIN EVERY Medica l (70-30) MORNING Branch suspension THEN ADMINISTER 60 UNITS UNDER THE SKIN EVERY EVENING HUMULIN Yes [id number] ADMINISTER [facility] 70/30 U-100 8-03 70 UNITS ity of INSULIN 100 00:00: UNDER THE [place] unit/mL 00 SKIN EVERY Medica l (70-30) MORNING Branch suspension THEN ADMINISTER 60 UNITS UNDER THE SKIN EVERY EVENING HUMULIN Yes [id number] ADMINISTER [facility] 70/30 U-100 8-03 70 UNITS ity of INSULIN 100 00:00: UNDER THE [place] unit/mL 00 SKIN EVERY Medica l (70-30) MORNING Branch suspension THEN ADMINISTER 60 UNITS UNDER THE SKIN EVERY EVENING HUMULIN Yes [id number] ADMINISTER [facility] 70/30 U-100 8-03 70 UNITS ity of INSULIN 100 00:00: UNDER THE [place] unit/mL 00 SKIN EVERY Medica l (70-30) MORNING Branch suspension THEN ADMINISTER 60 UNITS UNDER THE SKIN EVERY EVENING HUMULIN Yes [id number] ADMINISTER [facility] 70/30 U-100 8-03 70 UNITS ity of INSULIN 100 00:00: UNDER THE [place] unit/mL 00 SKIN EVERY Medica l (70-30) MORNING Branch suspension THEN ADMINISTER 60 UNITS UNDER THE SKIN EVERY EVENING HUMULIN Yes [id number] ADMINISTER [facility] 70/30 U-100 8-03 70 UNITS ity of INSULIN 100 00:00: UNDER THE [place] unit/mL 00 SKIN EVERY Medica l (70-30) MORNING Branch suspension THEN ADMINISTER 60 UNITS UNDER THE SKIN EVERY EVENING HUMULIN Yes [id number] ADMINISTER [facility] 70/30 U-100 8-03 70 UNITS ity of INSULIN 100 00:00: UNDER THE [place] unit/mL 00 SKIN EVERY Medica l (70-30) MORNING Branch suspension THEN ADMINISTER 60 UNITS UNDER THE SKIN EVERY EVENING HUMULIN Yes [id number] ADMINISTER [facility] 70/30 U-100 8-03 70 UNITS ity of INSULIN 100 00:00: UNDER THE [place] unit/mL 00 SKIN EVERY Medica l (70-30) MORNING Branch suspension THEN ADMINISTER 60 UNITS UNDER THE SKIN EVERY EVENING HUMULIN Yes [id number] ADMINISTER [facility] 70/30 U-100 8-03 70 UNITS ity of INSULIN 100 00:00: UNDER THE [place] unit/mL 00 SKIN EVERY Medica l (70-30) MORNING Branch suspension THEN ADMINISTER 60 UNITS UNDER THE SKIN EVERY EVENING HUMULIN Yes [id number] ADMINISTER [facility] 70/30 U-100 8-03 70 UNITS ity of INSULIN 100 00:00: UNDER THE [place] unit/mL 00 SKIN EVERY Medica l (70-30) MORNING Branch suspension THEN ADMINISTER 60 UNITS UNDER THE SKIN EVERY EVENING HUMULIN Yes [id number] ADMINISTER [facility] 70/30 U-100 8-03 70 UNITS ity of INSULIN 100 00:00: UNDER THE [place] unit/mL 00 SKIN EVERY Medica l (70-30) MORNING Branch suspension THEN ADMINISTER 60 UNITS UNDER THE SKIN EVERY EVENING HUMULIN Yes [id number] ADMINISTER [facility] 70/30 U-100 8-03 70 UNITS ity of INSULIN 100 00:00: UNDER THE [place] unit/mL 00 SKIN EVERY Medica l (70-30) MORNING Branch suspension THEN ADMINISTER 60 UNITS UNDER THE SKIN EVERY EVENING HUMULIN Yes [id number] ADMINISTER [facility] 70/30 U-100 8-03 70 UNITS ity of INSULIN 100 00:00: UNDER THE [place] unit/mL 00 SKIN EVERY Medica l (70-30) MORNING Branch suspension THEN ADMINISTER 60 UNITS UNDER THE SKIN EVERY EVENING HUMULIN Yes [id number] ADMINISTER [facility] 70/30 U-100 8-03 70 UNITS ity of INSULIN 100 00:00: UNDER THE [place] unit/mL 00 SKIN EVERY Medica l (70-30) MORNING Branch suspension THEN ADMINISTER 60 UNITS UNDER THE SKIN EVERY EVENING HUMULIN Yes [id number] ADMINISTER [facility] 70/30 U-100 8- 70 UNITS ity of INSULIN 100 00:00: UNDER THE [place] unit/mL 00 SKIN EVERY Medica l (70-30) MORNING Branch suspension THEN ADMINISTER 60 UNITS UNDER THE SKIN EVERY EVENING HUMULIN Yes [id number] ADMINISTER [facility] 70/30 U-100 8- 70 UNITS ity of INSULIN 100 00:00: UNDER THE [place] unit/mL 00 SKIN EVERY Medica l (70-30) MORNING Branch suspension THEN ADMINISTER 60 UNITS UNDER THE SKIN EVERY EVENING HUMULIN Yes [id number] ADMINISTER [facility] 70/30 U-100 8- 70 UNITS ity of INSULIN 100 00:00: UNDER THE [place] unit/mL 00 SKIN EVERY Medica l (70-30) MORNING Branch suspension THEN ADMINISTER 60 UNITS UNDER THE SKIN EVERY EVENING HUMULIN Yes [id number] ADMINISTER [facility] 70/30 U-100 8-03 70 UNITS ity of INSULIN 100 00:00: UNDER THE [place] unit/mL 00 SKIN EVERY Medica l (70-30) MORNING Branch suspension THEN ADMINISTER 60 UNITS UNDER THE SKIN EVERY EVENING HUMULIN Yes [id number] ADMINISTER [facility] 70/30 U-100 8-03 70 UNITS ity of INSULIN 100 00:00: UNDER THE [place] unit/mL 00 SKIN EVERY Medica l (70-30) MORNING Branch suspension THEN ADMINISTER 60 UNITS UNDER THE SKIN EVERY EVENING HUMULIN Yes [id number] ADMINISTER [facility] 70/30 U-100 8-03 70 UNITS ity of INSULIN 100 00:00: UNDER THE [place] unit/mL 00 SKIN EVERY Medica l (70-30) MORNING Branch suspension THEN ADMINISTER 60 UNITS UNDER THE SKIN EVERY EVENING HUMULIN 0 Yes [id number] ADMINISTER [facility] 70/30 U-100 06-03 70 UNITS ity of INSULIN 100 00:00: UNDER THE [place] unit/mL 00 SKIN EVERY Medica l (70-30) MORNING Branch suspension THEN ADMINISTER 60 UNITS UNDER THE SKIN EVERY EVENING GABAPENTIN 0 2021- No [id number] TAKE 1 [facility] 600 mg 06-03 TABLET BY ity of tablet 00:00: 00:00 MOUTH [place] 00 :00 THREE Medical TIMES Branch DAILY HYDROCHLORO 0 Yes [id number] 12.5mg TAKE 1 [facility] THIAZIDE 7-18 CAPSULE BY ity o f 12.5 mg 00:00: MOUTH [place] capsule 00 DAILY Medical Branch HYDROCHLORO 0 Yes [id number] 12.5mg TAKE 1 [facility] THIAZIDE 7-18 CAPSULE BY ity o f 12.5 mg 00:00: MOUTH [place] capsule 00 DAILY Medical Branch HYDROCHLORO 2021-0 Yes [id number] 12.5mg TAKE 1 [facility] THIAZIDE 7-18 CAPSULE BY ity o f 12.5 mg 00:00: MOUTH [place] capsule 00 DAILY Medical Branch HYDROCHLORO 2021-0 Yes [id number] 12.5mg TAKE 1 [facility] THIAZIDE 7-18 CAPSULE BY ity o f 12.5 mg 00:00: MOUTH [place] capsule 00 DAILY Medical Branch HYDROCHLORO 2021-0 Yes [id number] 12.5mg TAKE 1 [facility] THIAZIDE 7-18 CAPSULE BY ity o f 12.5 mg 00:00: MOUTH [place] capsule 00 DAILY Medical Branch HYDROCHLORO 2021-0 Yes [id number] 12.5mg TAKE 1 [facility] THIAZIDE 7-18 CAPSULE BY ity o f 12.5 mg 00:00: MOUTH [place] capsule 00 DAILY Medical Branch HYDROCHLORO 2021-0 Yes [id number] 12.5mg TAKE 1 [facility] THIAZIDE 7-18 CAPSULE BY ity o f 12.5 mg 00:00: MOUTH [place] capsule 00 DAILY Medical Branch HYDROCHLORO 2021-0 Yes [id number] 12.5mg TAKE 1 [facility] THIAZIDE 7-18 CAPSULE BY ity o f 12.5 mg 00:00: MOUTH [place] capsule 00 DAILY Medical Branch HYDROCHLORO 2021-0 Yes [id number] 12.5mg TAKE 1 [facility] THIAZIDE 7-18 CAPSULE BY ity o f 12.5 mg 00:00: MOUTH [place] capsule 00 DAILY Medical Branch HYDROCHLORO 2022-0 Yes [id number] 12.5mg TAKE 1 [facility] THIAZIDE 7-18 CAPSULE BY ity o f 12.5 mg 00:00: MOUTH [place] capsule 00 DAILY Medical Branch HYDROCHLORO 2022-0 Yes [id number] 12.5mg TAKE 1 [facility] THIAZIDE 7-18 CAPSULE BY ity o f 12.5 mg 00:00: MOUTH [place] capsule 00 DAILY Medical Branch HYDROCHLORO 2022-0 Yes [id number] 12.5mg TAKE 1 [facility] THIAZIDE 7-18 CAPSULE BY ity o f 12.5 mg 00:00: MOUTH [place] capsule 00 DAILY Medical Branch HYDROCHLORO 2022-0 Yes [id number] 12.5mg TAKE 1 [facility] THIAZIDE 7-18 CAPSULE BY ity o f 12.5 mg 00:00: MOUTH [place] capsule 00 DAILY Medical Branch HYDROCHLORO 2022-0 Yes [id number] 12.5mg TAKE 1 [facility] THIAZIDE 7-18 CAPSULE BY ity o f 12.5 mg 00:00: MOUTH [place] capsule 00 DAILY Medical Branch HYDROCHLORO 2022-0 Yes [id number] 12.5mg TAKE 1 [facility] THIAZIDE 7-18 CAPSULE BY ity o f 12.5 mg 00:00: MOUTH [place] capsule 00 DAILY Medical Branch HYDROCHLORO 2022-0 Yes [id number] 12.5mg TAKE 1 [facility] THIAZIDE 7-18 CAPSULE BY ity o f 12.5 mg 00:00: MOUTH [place] capsule 00 DAILY Medical Branch HYDROCHLORO 2022-0 Yes [id number] 12.5mg TAKE 1 [facility] THIAZIDE 7-18 CAPSULE BY ity o f 12.5 mg 00:00: MOUTH [place] capsule 00 DAILY Medical Branch HYDROCHLORO 2022-0 Yes [id number] 12.5mg TAKE 1 [facility] THIAZIDE 7-18 CAPSULE BY ity o f 12.5 mg 00:00: MOUTH [place] capsule 00 DAILY Medical Branch HYDROCHLORO 2022-0 Yes [id number] 12.5mg TAKE 1 [facility] THIAZIDE 7-18 CAPSULE BY ity o f 12.5 mg 00:00: MOUTH [place] capsule 00 DAILY Medical Branch HYDROCHLORO 2022-0 Yes [id number] 12.5mg TAKE 1 [facility] THIAZIDE 7-18 CAPSULE BY ity o f 12.5 mg 00:00: MOUTH [place] capsule 00 DAILY Medical Branch HYDROCHLORO 2022-0 Yes [id number] 12.5mg TAKE 1 [facility] THIAZIDE 7-18 CAPSULE BY ity o f 12.5 mg 00:00: MOUTH [place] capsule 00 DAILY Medical Branch HYDROCHLORO 2022-0 Yes [id number] 12.5mg TAKE 1 [facility] THIAZIDE 7-18 CAPSULE BY ity o f 12.5 mg 00:00: MOUTH [place] capsule 00 DAILY Medical Branch HYDROCHLORO 2022-0 Yes [id number] 12.5mg TAKE 1 [facility] THIAZIDE 7-18 CAPSULE BY ity o f 12.5 mg 00:00: MOUTH [place] capsule 00 DAILY Medical Branch HYDROCHLORO 2022-0 Yes [id number] 12.5mg TAKE 1 [facility] THIAZIDE 7-18 CAPSULE BY ity o f 12.5 mg 00:00: MOUTH [place] capsule 00 DAILY Medical Branch HYDROCHLORO 2022-0 Yes [id number] 12.5mg TAKE 1 [facility] THIAZIDE 7-18 CAPSULE BY ity o f 12.5 mg 00:00: MOUTH [place] capsule 00 DAILY Medical Branch HYDROCHLORO 2022-0 Yes [id number] 12.5mg TAKE 1 [facility] THIAZIDE 7-18 CAPSULE BY ity o f 12.5 mg 00:00: MOUTH [place] capsule 00 DAILY Medical Branch HYDROCHLORO 2022-0 Yes [id number] 12.5mg TAKE 1 [facility] THIAZIDE 7-18 CAPSULE BY ity o f 12.5 mg 00:00: MOUTH [place] capsule 00 DAILY Medical Branch HYDROCHLORO 2022-0 Yes [id number] 12.5mg TAKE 1 [facility] THIAZIDE 7-18 CAPSULE BY ity o f 12.5 mg 00:00: MOUTH [place] capsule 00 DAILY Medical Branch HYDROCHLORO 2022-0 Yes [id number] 12.5mg TAKE 1 [facility] THIAZIDE 7-18 CAPSULE BY ity o f 12.5 mg 00:00: MOUTH [place] capsule 00 DAILY Medical Branch HYDROCHLORO 2022-0 Yes [id number] 12.5mg TAKE 1 [facility] THIAZIDE 7-18 CAPSULE BY ity o f 12.5 mg 00:00: MOUTH [place] capsule 00 DAILY Medical Branch HYDROCHLORO 2022-0 Yes [id number] 12.5mg TAKE 1 [facility] THIAZIDE 7-18 CAPSULE BY ity o f 12.5 mg 00:00: MOUTH [place] capsule 00 DAILY Medical Branch HYDROCHLORO 2022-0 Yes [id number] 12.5mg TAKE 1 [facility] THIAZIDE 7-18 CAPSULE BY ity o f 12.5 mg 00:00: MOUTH [place] capsule 00 DAILY Medical Branch HYDROCHLORO 2021-0 Yes [id number] 12.5mg TAKE 1 [facility] THIAZIDE 7-18 CAPSULE BY ity o f 12.5 mg 00:00: MOUTH [place] capsule 00 DAILY Medical Branch HYDROCHLORO 0 Yes [id number] 12.5mg TAKE 1 [facility] THIAZIDE 7-18 CAPSULE BY ity o f 12.5 mg 00:00: MOUTH [place] capsule 00 DAILY Medical Branch HYDROCHLORO 0 Yes [id number] 12.5mg TAKE 1 [facility] THIAZIDE 7-18 CAPSULE BY ity o f 12.5 mg 00:00: MOUTH [place] capsule 00 DAILY Medical Branch HYDROCHLORO 0 Yes [id number] 12.5mg TAKE 1 [facility] THIAZIDE 7-18 CAPSULE BY ity o f 12.5 mg 00:00: MOUTH [place] capsule 00 DAILY Medical Branch HYDROCHLORO 0 Yes [id number] 12.5mg TAKE 1 [facility] THIAZIDE 7-18 CAPSULE BY ity o f 12.5 mg 00:00: MOUTH [place] capsule 00 DAILY Medical Branch HYDROCHLORO 2021-0 3- No [id number] 12.5mg TAKE 1 [facility] THIAZIDE 7-18 01-09 CAPSULE BY ity of 12.5 mg 00:00: 00:00 MOUTH [place] capsule 00 :00 DAILY Medical Branch dicyclomine 0 Yes TAKE [...] HOURS e colchicine Yes .6mg Take 0.6 [facility] 0.6 MG 7-11 mg by [facility] tablet 00:00: mouth of 00 daily. Medicin e colchicine 2021-0 Yes .6mg Take 0.6 [place] 0.6 MG 7-11 mg by [facility] tablet 00:00: mouth of 00 daily. Medicin e colchicine 2021-0 Yes .6mg Take 0.6 [place] 0.6 MG 7-11 mg by [facility] tablet 00:00: mouth of 00 daily. Medicin e HYDROcodone 2021-0 Yes [id number] 1{tbl} Take 1 [...] chronic pain ondansetron 0 Yes DISSOLVE 1 [facility] (ZOFRAN-ODT 7-06 TABLET ON Col lege ) 4 mg 00:00: THE TONGUE of disintegrat 00 EVERY 12 Medi patsy ing tablet HOURS e NEEDED pantoprazol 2021-0 Yes 40mg Take 40 mg [facility] e 7-06 by mouth College [...] tablet e ondansetron 2021-0 Yes DISSOLVE 1 [facility] (ZOFRAN-ODT 7-06 TABLET ON [facility]ge ) 4 mg 00:00: THE TONGUE of disintegrat 00 EVERY 12 Medi patsy ing tablet HOURS e NEEDED pantoprazol 2021-0 Yes 40mg Take 40 mg [facility] e 7-06 by mouth [place] (PROTONIX) 00:00: daily. of 40 MG 00 Medicin tablet e ondansetron 2021-0 Yes DISSOLVE 1 [facility] (ZOFRAN-ODT 7-06 TABLET ON [facility] ) 4 mg 00:00: THE TONGUE of disintegrat 00 EVERY 12 Medi patsy ing tablet HOURS e NEEDED ofloxacin 2021-0 Yes [facility] (OCUFLOX) 6-22 [place] 0.3 % 00:00: of Solution 00 Medicin e ofloxacin 2021-0 Yes [facility] (OCUFLOX) 622 [place] 0.3 % 00:00: of Solution 00 Medicin e ofloxacin 2-0 Yes [facility] (OCUFLOX) 6-22 [place] 0.3 % 00:00: of Solution 00 Medicin e zolpidem 2021-0 Yes TAKE 1 [facility] (AMBIEN) 10 6-20 TABLET BY [facility]ge MG tablet 00:00: MOUTH AT of 00 BEDTIME Medicin NEEDED FOR e INSOMNIA zolpidem 2021-0 Yes TAKE 1 [facility] (AMBIEN) 10 6-20 TABLET BY Col [facility]ge MG tablet 00:00: MOUTH AT of 00 BEDTIME Medicin NEEDED FOR e INSOMNIA zolpidem Yes TAKE 1 [facility] (AMBIEN) 10 6-20 TABLET BY Col [facility]ge MG tablet 00:00: MOUTH AT of 00 BEDTIME Medicin NEEDED FOR e INSOMNIA zolpidem Yes TAKE 1 [facility] (AMBIEN) 10 6-20 TABLET BY [...] Yes 100mg Take 1 [facility] ers tartrate 04-09 tablet by ity of 100 mg 00:00: mouth 2 [place] tablet 00 (two) Medical times Branch daily. metoprolol 2021- No 100mg Take 1 [facility] vers tartrate 04-09- tablet by ity o f 100 mg 00:00: 00:00 mouth 2 [place] tablet 00 :00 (two) Medical times Branch daily. GABAPENTIN 2021-0 Yes [id number] TAKE 1 [facility] 600 mg 5-31 TABLET BY ity of tablet 00:00: MOUTH [place] 00 THREE Medical TIMES Branch DAILY GABAPENTIN 2021-0 Yes [id number] TAKE 1 [facility] 600 mg 5-31 TABLET BY ity of tablet 00:00: MOUTH [place] 00 THREE Medical TIMES Branch DAILY GABAPENTIN 2021-0 Yes [id number] TAKE 1 [facility] 600 mg 5-31 TABLET BY ity of tablet 00:00: MOUTH [place] 00 THREE Medical TIMES Branch DAILY GABAPENTIN 2021-0 Yes [id number] TAKE 1 [facility] 600 mg 5-31 TABLET BY ity of tablet 00:00: MOUTH [place] 00 THREE Medical TIMES Branch DAILY GABAPENTIN 2021-0 Yes [id number] TAKE 1 [facility] 600 mg 5-31 TABLET BY ity of tablet 00:00: MOUTH [place] 00 THREE Medical TIMES Branch DAILY lubiproston 2021-0 2022- No TAKE 1 [facility] vers e (AMITIZA) 03-31 CAPSULE BY i ty of 24 MCG 00:00: 00:00 MOUTH [place] capsule 00 :00 TWICE MD DAILY [facility] lubiproston 2022- No TAKE 1 [facility] vers e (AMITIZA) 03-31 CAPSULE BY i ty of 24 MCG 00:00: 00:00 MOUTH [place] capsule 00 :00 TWICE MD DAILY [facility] lubipro[place] 2022- No TAKE 1 [facility] vers e (AMITIZA) 03-31 CAPSULE BY i ty of 24 MCG 00:00: 00:00 MOUTH [place] capsule 00 :00 TWICE MD DAILY [facility] lubipro[place] 2022- No TAKE 1 [facility] vers e (AMITIZA) 03-31 CAPSULE BY i ty of 24 MCG 00:00: 00:00 MOUTH [place] capsule 00 :00 TWICE MD DAILY [facility] GABAPENTIN 2021- No [id number] TAKE 1 [facility] 600 mg 03-31- TABLET BY ity of tablet 00:00: 00:00 MOUTH [place] 00 :00 THREE Medical TIMES Branch DAILY Insulin 2021-0 Yes [id number] Use as [facility] vers Syringe-Nee 5-18 directed ity of dle U-100 1 00:00: [place] mL 31 x 00 Medical 3/8" Syrg Branch Insulin 2021-0 Yes [id number] Use as [facility] vers Syringe-Nee 5-18 directed ity of dle U-100 1 00:00: [place] mL 31 x 00 Medical 3/8" Syrg Branch Insulin 2021-0 Yes [id number] Use as [facility] vers Syringe-Nee 5-18 directed ity of dle U-100 1 00:00: [place] mL 31 x 00 Medical 3/8" Syrg Branch Insulin 2021-0 Yes [id number] Use as [facility] vers Syringe-Nee 5-18 directed ity of dle U-100 1 00:00: [place] mL 31 x 00 Medical 3/8" Syrg Branch Insulin 2021-0 Yes [id number] Use as [facility] vers Syringe-Nee 5-18 directed ity of dle U-100 1 00:00: [place] mL 31 x 00 Medical 3/8" Syrg Branch Insulin 2021-0 Yes [id number] Use as [facility] vers Syringe-Nee 5-18 directed ity of dle U-100 1 00:00: [place] mL 31 x 00 Medical 3/8" Syrg Branch Insulin 2022-0 Yes [id number] Use as Uni vers Syringe-Nee 5-18 directed ity of dle U-100 1 00:00: [place] mL 31 x 00 Medical 3/8" Syrg Branch Insulin 2022-0 Yes [id number] Use as Uni vers Syringe-Nee 5-18 directed ity of dle U-100 1 00:00: [place] mL 31 x 00 Medical 3/8" Syrg Branch Insulin 2022-0 Yes [id number] Use as Uni vers Syringe-Nee 5-18 directed ity of dle U-100 1 00:00: [place] mL 31 x 00 Medical 3/8" Syrg Branch Insulin 2022-0 Yes [id number] Use as Uni vers Syringe-Nee 5-18 directed ity of dle U-100 1 00:00: [place] mL 31 x 00 Medical 3/8" Syrg Branch Insulin 2022-0 Yes [id number] Use as Uni vers Syringe-Nee 5-18 directed ity of dle U-100 1 00:00: [place] mL 31 x 00 Medical 3/8" Syrg Branch Insulin 2022-0 Yes [id number] Use as Uni vers Syringe-Nee 5-18 directed ity of dle U-100 1 00:00: [place] mL 31 x 00 Medical 3/8" Syrg Branch Insulin 2022-0 Yes [id number] Use as Uni vers Syringe-Nee 5-18 directed ity of dle U-100 1 00:00: [place] mL 31 x 00 Medical 3/8" Syrg Branch Insulin 2022-0 Yes [id number] Use as Uni vers Syringe-Nee 5-18 directed ity of dle U-100 1 00:00: [place] mL 31 x 00 Medical 3/8" Syrg Branch Insulin 2022-0 Yes [id number] Use as [facility] vers Syringe-Nee 5-18 directed [facility]y of dle U-100 1 00:00: [place] mL 31 x 00 Medical 3/8" Syrg Branch Insulin 2022-0 Yes [id number] Use as Uni vers Syringe-Nee 5-18 directed ity of dle U-100 1 00:00: [place] mL 31 x 00 Medical 3/8" Syrg Branch Insulin 2022-0 Yes [id number] Use as [facility] vers Syringe-Nee 5-18 directed ity of dle U-100 1 00:00: [place] mL 31 x 00 Medical 3/8" Syrg Branch Insulin 2022-0 Yes [id number] Use as Uni vers Syringe-Nee 5-18 directed ity of dle U-100 1 00:00: [place] mL 31 x 00 Medical 3/8" Syrg Branch Insulin 2022-0 Yes [id number] Use as Uni vers Syringe-Nee 5-18 directed ity of dle U-100 1 00:00: [place] mL 31 x 00 Medical 3/8" Syrg Branch Insulin 2022-0 Yes [id number] Use as [facility] vers Syringe-Nee 5-18 directed ity of dle U-100 1 00:00: [place] mL 31 x 00 Medical 3/8" Syrg Branch Insulin 2022-0 Yes [id number] Use as Uni vers Syringe-Nee 5-18 directed ity of dle U-100 1 00:00: [place] mL 31 x 00 Medical 3/8" Syrg Branch Insulin 2022-0 Yes [id number] Use as Uni vers Syringe-Nee 5-18 directed ity of dle U-100 1 00:00: [place] mL 31 x 00 Medical 3/8" Syrg Branch Insulin 2022-0 Yes [id number] Use as Uni vers Syringe-Nee 5-18 directed ity of dle U-100 1 00:00: [place] mL 31 x 00 Medical 3/8" Syrg Branch Insulin 2022-0 Yes [id number] Use as Uni vers Syringe-Nee 5-18 directed ity of dle U-100 1 00:00: [place] mL 31 x 00 Medical 3/8" Syrg Branch Insulin 2022-0 Yes [id number] Use as Uni vers Syringe-Nee 5-18 directed ity of dle U-100 1 00:00: [place] mL 31 x 00 Medical 3/8" Syrg Branch Insulin 2022-0 Yes [id number] Use as Uni vers Syringe-Nee 5-18 directed ity of dle U-100 1 00:00: [place] mL 31 x 00 Medical 3/8" Syrg Branch Insulin 2022-0 Yes [id number] Use as Uni vers Syringe-Nee 5-18 directed ity of dle U-100 1 00:00: [place] mL 31 x 00 Medical 3/8" Syrg Branch Insulin 2022-0 Yes [id number] Use as Uni vers Syringe-Nee 5-18 directed ity of dle U-100 1 00:00: [place] mL 31 x 00 Medical 3/8" Syrg Branch Insulin 2022-0 Yes [id number] Use as Uni vers Syringe-Nee 5-18 directed ity of dle U-100 1 00:00: [place] mL 31 x 00 Medical 3/8" Syrg Branch Insulin 2022-0 Yes [id number] Use as Uni vers Syringe-Nee 5-18 directed ity of dle U-100 1 00:00: [place] mL 31 x 00 Medical 3/8" Syrg Branch Insulin 2022-0 Yes [id number] Use as Uni vers Syringe-Nee 5-18 directed ity of dle U-100 1 00:00: [place] mL 31 x 00 Medical 3/8" Syrg Branch Insulin 2022-0 Yes [id number] Use as Uni vers Syringe-Nee 5-18 directed ity of dle U-100 1 00:00: [place] mL 31 x 00 Medical 3/8" Syrg Branch Insulin 2022-0 Yes [id number] Use as Uni vers Syringe-Nee 5-18 directed ity of dle U-100 1 00:00: [place] mL 31 x 00 Medical 3/8" Syrg Branch Insulin 2022-0 Yes [id number] Use as Uni vers Syringe-Nee 5-18 directed ity of dle U-100 1 00:00: [place] mL 31 x 00 Medical 3/8" Syrg Branch Insulin 2022-0 Yes [id number] Use as [facility] vers Syringe-Nee 5-18 directed ity of dle U-100 1 00:00: [place] mL 31 x 00 Medical 3/8" Syrg Branch Insulin 2022-0 Yes [id number] Use as Uni vers Syringe-Nee 5-18 directed ity of dle U-100 1 00:00: [place] mL 31 x 00 Medical 3/8" Syrg Branch Insulin 2022-0 Yes [id number] Use as Uni vers Syringe-Nee 5-18 directed ity of dle U-100 1 00:00: [place] mL 31 x 00 Medical 3/8" Syrg Branch Insulin 2022-0 Yes [id number] Use as Uni vers Syringe-Nee 5-18 directed ity of dle U-100 1 00:00: [place] mL 31 x 00 Medical 3/8" Syrg Branch Insulin 2022-0 Yes [id number] Use as Uni vers Syringe-Nee 5-18 directed ity of dle U-100 1 00:00: [place] mL 31 x 00 Medical 3/8" Syrg Branch Insulin 2022-0 Yes [id number] Use as [facility] vers Syringe-Nee 5-18 directed ity of dle U-100 1 00:00: [place] mL 31 x 00 Medical 3/8" Syrg Branch Insulin 2022-0 Yes [id number] Use as Uni vers Syringe-Nee 5-18 directed ity of dle U-100 1 00:00: [place] mL 31 x 00 Medical 3/8" Syrg Branch Insulin 2022-0 Yes [id number] Use as Uni vers Syringe-Nee 5-18 directed ity of dle U-100 1 00:00: [place] mL 31 x 00 Medical 3/8" Syrg Branch Insulin 2022-0 Yes [id number] Use as Uni vers Syringe-Nee 5-18 directed ity of dle U-100 1 00:00: [place] mL 31 x 00 Medical 3/8" Syrg Branch Insulin 2022-0 Yes [id number] Use as Uni vers Syringe-Nee 5-18 directed ity of dle U-100 1 00:00: [place] mL 31 x 00 Medical 3/8" Syrg Branch Insulin 2022-0 Yes [id number] Use as Uni vers Syringe-Nee 5-18 directed ity of dle U-100 1 00:00: [place] mL 31 x 00 Medical 3/8" Syrg Branch Insulin 2022-0 Yes [id number] Use as Uni vers Syringe-Nee 5-18 directed ity of dle U-100 1 00:00: [place] mL 31 x 00 Medical 3/8" Syrg Branch Insulin 2022-0 Yes [id number] Use as Uni vers Syringe-Nee 5-18 directed ity of dle U-100 1 00:00: [place] mL 31 x 00 Medical 3/8" Syrg Branch Insulin 2022-0 Yes [id number] Use as Uni vers Syringe-Nee 5-18 directed ity of dle U-100 1 00:00: [place] mL 31 x 00 Medical 3/8" Syrg Branch Insulin 2022-0 Yes [id number] Use as Uni vers Syringe-Nee 5-18 directed ity of dle U-100 1 00:00: [place] mL 31 x 00 Medical 3/8" Syrg Branch Insulin 2022-0 Yes [id number] Use as Uni vers Syringe-Nee 5-18 directed ity of dle U-100 1 00:00: [place] mL 31 x 00 Medical 3/8" Syrg Branch Insulin 2022-0 Yes [id number] Use as Uni vers Syringe-Nee 5-18 directed ity of dle U-100 1 00:00: [place] mL 31 x 00 Medical 3/8" Syrg Branch Insulin 2022-0 Yes [id number] Use as Uni vers Syringe-Nee 5-18 directed ity of dle U-100 1 00:00: [place] mL 31 x 00 Medical 3" Syrg Branch metformin 2021-0 Yes TAKE 1 [facility] (GLUCOPHAGE 5-16 TABLET BY [facility] ) 1000 MG 00:00: MOUTH of tablet 00 TWICE Medicin DAILY WITH e MEALS metformin 2021-0 Yes TAKE 1 [facility] (GLUCOPHAGE 5-16 TABLET BY Col lege ) 1000 MG 00:00: MOUTH of tablet 00 TWICE Medicin DAILY WITH e MEALS metformin 2021-0 Yes TAKE 1 [facility] (GLUCOPHAGE 5-16 TABLET BY Col lege ) 1000 MG 00:00: MOUTH of tablet 00 TWICE Medicin DAILY WITH e MEALS metformin 2021-0 Yes TAKE 1 [facility] (GLUCOPHAGE 5-16 TABLET BY Col [facility]ge ) 1000 MG 00:00: MOUTH of tablet 00 TWICE Medicin DAILY WITH e MEALS METFORMIN 2021-0 Yes [id number] TAKE 1 [facility] n[facility] 1,000 mg 5-16 TABLET BY ity of tablet 00:00: MOUTH [place] TWICE Medical DAILY WITH Branch MEALS HYDRALAZINE 2021-0 Yes [id number] TAKE 1 [facility] 100 mg 5-16 TABLET BY ity of tablet 00:00: MOUTH [place] THREE Medical TIMES Branch DAILY METFORMIN 2021-0 Yes [id number] TAKE 1 U nivers 1,000 mg 5-16 TABLET BY ity of tablet 00:00: MOUTH [place] 00 TWICE Medical DAILY WITH Branch MEALS HYDRALAZINE 2021-0 Yes [id number] TAKE 1 [facility] 100 mg 5-16 TABLET BY ity of tablet 00:00: MOUTH [place] THREE Medical TIMES Branch DAILY METFORMIN 2021-0 Yes [id number] TAKE 1 U nivers 1,000 mg 5-16 TABLET BY ity of tablet 00:00: MOUTH [place] 00 TWICE Medical DAILY WITH Branch MEALS HYDRALAZINE 2021-0 Yes [id number] TAKE 1 [facility] 100 mg 5-16 TABLET BY ity of tablet 00:00: MOUTH [place] 00 THREE Medical TIMES Branch DAILY METFORMIN 2021-0 Yes [id number] TAKE 1 [facility] nivers 1,000 mg 5-16 TABLET BY ity of tablet 00:00: MOUTH [place] 00 TWICE Medical DAILY WITH Branch MEALS HYDRALAZINE 2021-0 Yes [id number] TAKE 1 [facility] 100 mg 5-16 TABLET BY ity of tablet 00:00: MOUTH THREE Medical TIMES Branch DAILY METFORMIN 2-0 Yes [id number] TAKE 1 [facility] nivers 1,000 mg 5-16 TABLET BY ity of tablet 00:00: MOUTH TWICE Medical DAILY WITH Branch MEALS HYDRALAZINE 2021-0 Yes [id number] TAKE 1 [facility] 100 mg 5-16 TABLET BY ity of tablet 00:00: THREE Medical TIMES Branch DAILY METFORMIN 2-0 Yes [id number] TAKE 1 [facility] nivers 1,000 mg 5-16 TABLET BY ity of tablet 00:00: MOUTH TWICE Medical DAILY WITH Branch MEALS HYDRALAZINE 2021-0 Yes [id number] TAKE 1 [facility] 100 mg 5-16 TABLET BY ity of tablet 00:00: THREE Medical TIMES Branch DAILY METFORMIN 2-0 Yes [id number] TAKE 1 [facility] nivers 1,000 mg 5-16 TABLET BY ity of tablet 00:00: TWICE Medical DAILY WITH Branch MEALS HYDRALAZINE 2021-0 Yes [id number] TAKE 1 [facility] 100 mg 5-16 TABLET BY ity of tablet 00:00: MOUTH THREE Medical TIMES Branch DAILY METFORMIN 2-0 Yes [id number] TAKE 1 [facility] nivers 1,000 mg 5-16 TABLET BY ity of tablet 00:00: TWICE Medical DAILY WITH Branch MEALS HYDRALAZINE 2021-0 Yes [id number] TAKE 1 [facility] 100 mg 5-16 TABLET BY ity of tablet 00:00: THREE Medical TIMES Branch DAILY METFORMIN 2-0 Yes [id number] TAKE 1 U nivers 1,000 mg 5-16 TABLET BY ity of tablet 00:00: TWICE Medical DAILY WITH Branch MEALS HYDRALAZINE 2-0 Yes [id number] TAKE 1 [facility] 100 mg 5-16 TABLET BY ity of tablet 00:00: MOUTH THREE Medical TIMES Branch DAILY METFORMIN 2-0 Yes [id number] TAKE 1 [facility] nivers 1,000 mg 5-16 TABLET BY ity of tablet 00:00: MOUTH TWICE Medical DAILY WITH Branch MEALS HYDRALAZINE 2-0 Yes [id number] TAKE 1 [facility] 100 mg 5-16 TABLET BY ity of tablet 00:00: THREE Medical TIMES Branch DAILY METFORMIN 2-0 Yes [id number] TAKE 1 [facility] nivers 1,000 mg 5-16 TABLET BY ity of tablet 00:00: MOUTH 00 TWICE Medical DAILY WITH Branch MEALS HYDRALAZINE 2022-0 Yes [id number] TAKE 1 [facility] 100 mg 5-16 TABLET BY ity of tablet 00:00: MOUTH 00 THREE Medical TIMES Branch DAILY METFORMIN 2022-0 Yes [id number] TAKE 1 U nivers 1,000 mg 5-16 TABLET BY ity of tablet 00:00: MOUTH 00 TWICE Medical DAILY WITH Branch MEALS METFORMIN 2022-0 Yes [id number] TAKE 1 [facility] nivers 1,000 mg 5-16 TABLET BY ity of tablet 00:00: MOUTH 00 TWICE Medical DAILY WITH Branch MEALS METFORMIN 2022-0 Yes [id number] TAKE 1 U nivers 1,000 mg 5-16 TABLET BY ity of tablet 00:00: MOUTH 00 TWICE Medical DAILY WITH Branch MEALS METFORMIN 2022-0 Yes [id number] TAKE 1 U nivers 1,000 mg 5-16 TABLET BY ity of tablet 00:00: MOUTH TWICE Medical DAILY WITH Branch MEALS METFORMIN 2022-0 Yes [id number] TAKE 1 [facility]ivers 1,000 mg 5-16 TABLET BY ity of tablet 00:00: MOUTH 00 TWICE Medical DAILY WITH Branch MEALS METFORMIN 2022-0 Yes [id number] TAKE 1 U nivers 1,000 mg 5-16 TABLET BY ity of tablet 00:00: MOUTH 00 TWICE Medical DAILY WITH Branch MEALS METFORMIN 2022-0 Yes [id number] TAKE 1 U nivers 1,000 mg 5-16 TABLET BY ity of tablet 00:00: MOUTH TWICE Medical DAILY WITH Branch MEALS METFORMIN 2022-0 Yes [id number] TAKE 1 U nivers 1,000 mg 5-16 TABLET BY ity of tablet 00:00: MOUTH 00 TWICE Medical DAILY WITH Branch MEALS METFORMIN 2022-0 Yes [id number] TAKE 1 U nivers 1,000 mg 5-16 TABLET BY ity of tablet 00:00: MOUTH 00 TWICE Medical DAILY WITH Branch MEALS METFORMIN 2022-0 Yes [id number] TAKE 1 U nivers 1,000 mg 5-16 TABLET BY ity of tablet 00:00: MOUTH 00 TWICE Medical DAILY WITH Branch MEALS METFORMIN 2022-0 Yes [id number] TAKE 1 [facility]ivers 1,000 mg 5-16 TABLET BY ity of tablet 00:00: MOUTH 00 TWICE Medical DAILY WITH Branch MEALS METFORMIN 2022-0 Yes [id number] TAKE 1 [facility]ivers 1,000 mg 5-16 TABLET BY ity of tablet 00:00: MOUTH 00 TWICE Medical DAILY WITH Branch MEALS METFORMIN 2022-0 Yes [id number] TAKE 1 U nivers 1,000 mg 5-16 TABLET BY ity of tablet 00:00: MOUTH 00 TWICE Medical DAILY WITH Branch MEALS METFORMIN 2022-0 Yes [id number] TAKE 1 U nivers 1,000 mg 5-16 TABLET BY ity of tablet 00:00: MOUTH 00 TWICE Medical DAILY WITH Branch MEALS METFORMIN 2022-0 Yes [id number] TAKE 1 U nivers 1,000 mg 5-16 TABLET BY ity of tablet 00:00: MOUTH 00 TWICE Medical DAILY WITH Branch MEALS METFORMIN 2022-0 Yes [id number] TAKE 1 [facility]ivers 1,000 mg 5-16 TABLET BY ity of tablet 00:00: MOUTH 00 TWICE Medical DAILY WITH Branch MEALS METFORMIN 2022-0 Yes [id number] TAKE 1 [facility] 1,000 mg 5-16 TABLET BY ity of tablet 00:00: MOUTH 00 TWICE Medical DAILY WITH Branch MEALS METFORMIN 2022-0 Yes [id number] TAKE 1 [facility] nivers 1,000 mg 5-16 TABLET BY ity of tablet 00:00: MOUTH 00 TWICE Medical DAILY WITH Branch MEALS METFORMIN 2022-0 Yes [id number] TAKE 1 [facility] nivers 1,000 mg 5-16 TABLET BY ity of tablet 00:00: MOUTH 00 TWICE Medical DAILY WITH Branch MEALS METFORMIN 2022-0 Yes [id number] TAKE 1 [facility] nivers 1,000 mg 5-16 TABLET BY ity of tablet 00:00: MOUTH 00 TWICE Medical DAILY WITH Branch MEALS METFORMIN 2022-0 Yes [id number] TAKE 1 [facility]ivers 1,000 mg 5-16 TABLET BY ity of tablet 00:00: MOUTH 00 TWICE Medical DAILY WITH Branch MEALS METFORMIN 2022-0 Yes [id number] TAKE 1 [facility]ivers 1,000 mg 5-16 TABLET BY ity of tablet 00:00: MOUTH 00 TWICE Medical DAILY WITH Branch MEALS METFORMIN 2022-0 2022- No [id number] TAKE 1 [facility] 1,000 mg 5-16 11-21 TABLET BY ity o f tablet 00:00: 00:00 MOUTH [place] 00 :00 TWICE Medical DAILY WITH Branch MEALS METFORMIN 2021-0 2021- No [id number] TAKE 1 [facility] 1,000 mg 5-16 11-21 TABLET BY ity o f tablet 00:00: 00:00 MOUTH [place] 00 :00 TWICE Medical DAILY WITH Branch MEALS HYDRALAZINE 2021-0 2021- No [id number] TAKE 1 [facility] 100 mg 5-16 09-06 TABLET BY ity of tablet 00:00: 00:00 MOUTH [place] 00 :00 THREE Medical TIMES Branch DAILY LISINOPRIL 2021-0 Yes [id number] TAKE 1/2 [facility] 40 mg 5-13 TABLET BY ity of tablet 00:00: MOUTH 00 TWICE Medical DAILY Branch LISINOPRIL 0 Yes [id number] TAKE 1/2 [facility] 40 mg 5-13 TABLET BY ity of tablet 00:00: MOUTH [place] 00 TWICE Medical DAILY Branch LISINOPRIL 2021-0 Yes [id number] TAKE 1/2 [facility] 40 mg 5-13 TABLET BY ity of tablet 00:00: MOUTH 00 TWICE Medical DAILY Branch LISINOPRIL 2021-0 Yes [id number] TAKE 1/2 [facility] 40 mg 5-13 TABLET BY ity of tablet 00:00: MOUTH [place] 00 TWICE Medical DAILY Branch LISINOPRIL 2021-0 Yes [id number] TAKE 1/2 [facility] 40 mg 5-13 TABLET BY ity of tablet 00:00: MOUTH [place] 00 TWICE Medical DAILY Branch LISINOPRIL 2021-0 Yes [id number] TAKE 1/2 [facility] 40 mg 5-13 TABLET BY ity of tablet 00:00: MOUTH [place] 00 TWICE Medical DAILY Branch LISINOPRIL 2021-0 Yes [id number] TAKE 1/2 [facility] 40 mg 5-13 TABLET BY ity of tablet 00:00: MOUTH [place] 00 TWICE Medical DAILY Branch LISINOPRIL 2021-0 2021- No [id number] TAKE 1/2 [facility] 40 mg 5-13 08-08 TABLET BY ity of tablet 00:00: 00:00 MOUTH [place] 00 :00 TWICE Medical DAILY Branch LISINOPRIL 2021-0 2021- No [id number] TAKE 1/2 [facility] 40 mg 5-13 08-08 TABLET BY ity of tablet 00:00: 00:00 MOUTH [place] 00 :00 TWICE Medical DAILY Branch HUMULIN 2021-0 Yes [id number] ADMINISTER Univers 70/30 U-100 5-11 70 UNITS ity of INSULIN 100 00:00: [place]ER THE [place] unit/mL 00 SKIN EVERY Medica l (70-30) MORNING Branch suspension THEN ADMINISTER 60 UNITS UNDER THE SKIN EVERY EVENING HUMULIN Yes [id number] ADMINISTER Univers 70/30 U-100 5-11 70 UNITS ity of INSULIN 100 00:00: [place]ER THE [place] unit/mL 00 SKIN EVERY Medica l (70-30) MORNING Branch suspension THEN ADMINISTER 60 UNITS UNDER THE SKIN EVERY EVENING HUMULIN Yes [id number] ADMINISTER Univers 70/30 U-100 5-11 70 UNITS ity of INSULIN 100 00:00: [place]ER THE [place] unit/mL 00 SKIN EVERY Medica l (70-30) MORNING Branch suspension THEN ADMINISTER 60 UNITS UNDER THE SKIN EVERY EVENING HUMULIN Yes [id number] ADMINISTER Univers 70/30 U-100 5-11 70 UNITS ity of INSULIN 100 00:00: [place] THE [place] unit/mL 00 SKIN EVERY Medica l (70-30) MORNING Branch suspension THEN ADMINISTER 60 UNITS UNDER THE SKIN EVERY EVENING HUMULIN Yes [id number] ADMINISTER Univers 70/30 U-100 5-11 70 UNITS ity of INSULIN 100 00:00: [place] unit/mL 00 SKIN EVERY Medica l (70-30) MORNING Branch suspension THEN ADMINISTER 60 UNITS UNDER THE SKIN EVERY EVENING HUMULIN 2021- No [id number] ADMINISTER Univers 70/30 U-100 5-11 08-03 70 [...] Syringe 03-03 SYRINGE ity o f U-500 /2 00:00: 00:00 DIRECTED [place] mL 31 gauge 00 :00 TWICE MD x 15/64" DAILY WITH Suraj so syrg MEALS [facility] BD Insulin 2022- No USE 1 Unive rs Syringe 03-03 S[facility]INGE ity o f U-500 /2 00:00: 00:00 DIRECTED [place] mL 31 gauge 00 :00 TWICE MD x 15/64" DAILY WITH Suraj so syrg MEALS [facility] BD Insulin 2022- No USE 1 Unive rs Syringe 03-03 S[facility]INGE ity o f U-500 /2 00:00: 00:00 DIRECTED [place] mL 31 gauge 00 :00 TWICE MD x 15/64" DAILY WITH Suraj so syrg MEALS [facility] BD Insulin 2022- No USE 1 Un[facility] rs Syringe 03-03 S[facility]ING[facility] ity o f U-500 /2 00:00: 00:00 DIRECTED [place] mL 31 gauge 00 :00 TWICE MD x 15/64" DAILY WITH Suraj so syrg MEALS [facility] Insulin Yes USE 1 [facility] Syringe/Nee 5-02 [...] X 6MM 0.5 ML MISC GABAPENTIN Yes [id number] TAKE 1 [facility] 600 mg 5-02 TABLET BY ity of tablet 00:00: MOUTH [place] 00 THREE Medical TIMES Branch DAILY BD INSULIN Yes [id number] USE 1 U nivers SYRINGE 5-02 SYRINGE ity of U-500 2 00:00: TWICE [place] mL 31 gauge 00 DAILY WITH Me dical x 15/64" MEALS. Branch Syrg BD INSULIN Yes [id number] USE 1 U nivers SYRINGE 5-02 SYRINGE ity of U-500 2 00:00: TWICE [place] mL 31 gauge 00 DAILY WITH Me dical x 15/64" MEALS. Branch Syrg BD INSULIN Yes [id number] USE 1 U nivers SYRINGE 5-02 SYRINGE ity of U-500 2 00:00: TWICE [place] mL 31 gauge 00 DAILY WITH Me dical x 15/64" MEALS. Branch Syrg BD INSULIN Yes [id number] USE 1 U nivers SYRINGE 5-02 SYRINGE ity of U-500 2 00:00: TWICE [place] mL 31 gauge 00 DAILY WITH Me dical x 15/64" MEALS. Branch Syrg BD INSULIN Yes [id number] USE 1 U nivers SYRINGE 5-02 SYRINGE ity of U-500 2 00:00: TWICE [place] mL 31 gauge 00 DAILY WITH Me dical x 15/64" MEALS. Branch Syrg BD INSULIN Yes [id number] USE 1 U nivers SYRINGE 5-02 SYRINGE ity of U-500 2 00:00: TWICE [place] mL 31 gauge 00 DAILY WITH Me dical x 15/64" MEALS. Branch Syrg BD INSULIN Yes [id number] USE 1 U nivers SYRINGE 5-02 SYRINGE ity of U-500 2 00:00: TWICE [place] mL 31 gauge 00 DAILY WITH Me dical x 15/64" MEALS. Branch Syrg BD INSULIN Yes [id number] USE 1 U nivers SYRINGE 5-02 SYRINGE ity of U-500 2 00:00: TWICE [place] mL 31 gauge 00 DAILY WITH Me dical x 15/64" MEALS. Branch Syrg BD INSULIN 2021-0 Yes [id number] USE 1 U nivers SYRINGE 5-02 SYRINGE ity of U-500 2 00:00: TWICE [place] mL 31 gauge 00 DAILY WITH Me dical x 15/64" MEALS. Branch Syrg BD INSULIN 2021-0 Yes [id number] USE 1 U nivers SYRINGE 5-02 SYRINGE ity of U-500 2 00:00: TWICE [place] mL 31 gauge 00 DAILY WITH Me dical x 15/64" MEALS. Branch Syrg BD INSULIN 0 Yes [id number] USE 1 U nivers SYRINGE 5-02 SYRINGE ity of U-500 2 00:00: TWICE [place] mL 31 gauge 00 DAILY WITH Me dical x 15/64" MEALS. Branch Syrg BD INSULIN 0 Yes [id number] USE 1 U nivers SYRINGE 5-02 SYRINGE ity of U-500 2 00:00: TWICE [place] mL 31 gauge 00 DAILY WITH Me dical x 15/64" MEALS. Branch Syrg BD INSULIN 2021-0 Yes [id number] USE 1 U nivers SYRINGE 5-02 SYRINGE ity of U-500 2 00:00: TWICE [place] mL 31 gauge 00 DAILY WITH Me dical x 15/64" MEALS. Branch Syrg BD INSULIN 0 Yes [id number] USE 1 U nivers SYRINGE 5-02 SYRINGE ity of U-500 2 00:00: TWICE [place] mL 31 gauge 00 DAILY WITH Me dical x 15/64" MEALS. Branch Syrg BD INSULIN 2021-0 Yes [id number] USE 1 U nivers SYRINGE 5-02 SYRINGE ity of U-500 2 00:00: TWICE [place] mL 31 gauge 00 DAILY WITH Me dical x 15/64" MEALS. Branch Syrg BD INSULIN 2021-0 Yes [id number] USE 1 U nivers SYRINGE 5-02 SYRINGE ity of U-500 2 00:00: TWICE [place] mL 31 gauge 00 DAILY WITH Me dical x 15/64" MEALS. Branch Syrg BD INSULIN 2021-0 Yes [id number] USE 1 U nivers SYRINGE 5-02 SYRINGE ity of U-500 2 00:00: TWICE [place] mL 31 gauge 00 DAILY WITH Me dical x 15/64" MEALS. Branch Syrg BD INSULIN Yes [id number] USE 1 U nivers SYRINGE 5-02 SYRINGE ity of U-500 2 00:00: TWICE [place] mL 31 gauge 00 DAILY WITH Me dical x 15/64" MEALS. Branch Syrg BD INSULIN 0 Yes [id number] USE 1 U nivers SYRINGE 5-02 SYRINGE ity of U-500 2 00:00: TWICE [place] mL 31 gauge 00 DAILY WITH Me dical x 15/64" MEALS. Branch Syrg BD INSULIN 0 Yes [id number] USE 1 U nivers SYRINGE 5-02 SYRINGE ity of U-500 2 00:00: TWICE [place] mL 31 gauge 00 DAILY WITH Me dical x 15/64" MEALS. Branch Syrg BD INSULIN Yes [id number] USE 1 U nivers SYRINGE 5-02 SYRINGE ity of U-500 2 00:00: TWICE [place] mL 31 gauge 00 DAILY WITH Me dical x 15/64" MEALS. Branch Syrg BD INSULIN Yes [id number] USE 1 U nivers SYRINGE 5-02 SYRINGE ity of U-500 2 00:00: TWICE [place] mL 31 gauge 00 DAILY WITH Me dical x 15/64" MEALS. Branch Syrg BD INSULIN Yes [id number] USE 1 U nivers SYRINGE 5-02 SYRINGE ity of U-500 2 00:00: TWICE [place] mL 31 gauge 00 DAILY WITH Me dical x 15/64" MEALS. Branch Syrg BD INSULIN 0 Yes [id number] USE 1 U nivers SYRINGE 5-02 SYRINGE ity of U-500 2 00:00: TWICE [place] mL 31 gauge 00 DAILY WITH Me dical x 15/64" MEALS. Branch Syrg BD INSULIN 0 Yes [id number] USE 1 U nivers SYRINGE 5-02 SYRINGE ity of U-500 2 00:00: TWICE [place] mL 31 gauge 00 DAILY WITH Me dical x 15/64" MEALS. Branch Syrg BD INSULIN 0 Yes [id number] USE 1 U nivers SYRINGE 5-02 SYRINGE ity of U-500 2 00:00: TWICE [place] mL 31 gauge 00 DAILY WITH Me dical x 15/64" MEALS. Branch Syrg BD INSULIN 0 Yes [id number] USE 1 U nivers SYRINGE 5-02 SYRINGE ity of U-500 2 00:00: TWICE [place] mL 31 gauge 00 DAILY WITH Me dical x 15/64" MEALS. Branch Syrg BD INSULIN 0 Yes [id number] USE 1 U nivers SYRINGE 5-02 SYRINGE ity of U-500 2 00:00: TWICE [place] mL 31 gauge 00 DAILY WITH Me dical x 15/64" MEALS. Branch Syrg BD INSULIN 2021-0 Yes [id number] USE 1 U nivers SYRINGE 5-02 SYRINGE ity of U-500 2 00:00: TWICE [place] mL 31 gauge 00 DAILY WITH Me dical x 15/64" MEALS. Branch Syrg BD INSULIN 0 Yes [id number] USE 1 U nivers SYRINGE 5-02 SYRINGE ity of U-500 2 00:00: TWICE [place] mL 31 gauge 00 DAILY WITH Me dical x 15/64" MEALS. Branch Syrg BD INSULIN 2021-0 Yes [id number] USE 1 U nivers SYRINGE 5-02 SYRINGE ity of U-500 2 00:00: TWICE [place] mL 31 gauge 00 DAILY WITH Me dical x 15/64" MEALS. Branch Syrg BD INSULIN 2021-0 Yes [id number] USE 1 U nivers SYRINGE 5-02 SYRINGE ity of U-500 2 00:00: TWICE [place] mL 31 gauge 00 DAILY WITH Me dical x 15/64" MEALS. Branch Syrg BD INSULIN 2021-0 Yes [id number] USE 1 U nivers SYRINGE 5-02 SYRINGE ity of U-500 2 00:00: TWICE [place] mL 31 gauge 00 DAILY WITH Me dical x 15/64" MEALS. Branch Syrg BD INSULIN 2021-0 Yes [id number] USE 1 U nivers SYRINGE 5-02 SYRINGE ity of U-500 2 00:00: TWICE [place] mL 31 gauge 00 DAILY WITH Me dical x 15/64" MEALS. Branch Syrg BD INSULIN 2021-0 Yes [id number] USE 1 U nivers SYRINGE 5-02 SYRINGE ity of U-500 2 00:00: TWICE [place] mL 31 gauge 00 DAILY WITH Me dical x 15/64" MEALS. Branch Syrg BD INSULIN 2022-0 Yes [id number] USE 1 U nivers SYRINGE 5-02 SYRINGE ity of U-500 2 00:00: TWICE [place] mL 31 gauge 00 DAILY WITH Me dical x 15/64" MEALS. Branch Syrg BD INSULIN 0 Yes [id number] USE 1 U nivers SYRINGE 5-02 SYRINGE ity of U-500 2 00:00: TWICE [place] mL 31 gauge 00 DAILY WITH Me dical x 15/64" MEALS. Branch Syrg BD INSULIN 0 Yes [id number] USE 1 U nivers SYRINGE 5-02 SYRINGE ity of U-500 2 00:00: TWICE [place] mL 31 gauge 00 DAILY WITH Me dical x 15/64" MEALS. Branch Syrg BD INSULIN Yes [id number] USE 1 U nivers SYRINGE 5-02 SYRINGE ity of U-500 2 00:00: TWICE [place] mL 31 gauge 00 DAILY WITH Me dical x 15/64" MEALS. Branch Syrg BD INSULIN Yes [id number] USE 1 U nivers SYRINGE 5-02 SYRINGE ity of U-500 2 00:00: TWICE [place] mL 31 gauge 00 DAILY WITH Me dical x 15/64" MEALS. Branch Syrg BD INSULIN Yes [id number] USE 1 U nivers SYRINGE 5-02 SYRINGE ity of U-500 2 00:00: TWICE [place] mL 31 gauge 00 DAILY WITH Me dical x 15/64" MEALS. Branch Syrg BD INSULIN 0 Yes [id number] USE 1 U nivers SYRINGE 5-02 SYRINGE ity of U-500 2 00:00: TWICE [place] mL 31 gauge 00 DAILY WITH Me dical x 15/64" MEALS. Branch Syrg BD INSULIN 0 Yes [id number] USE 1 U nivers SYRINGE 5-02 SYRINGE ity of U-500 2 00:00: TWICE [place] mL 31 gauge 00 DAILY WITH Me dical x 15/64" MEALS. Branch Syrg BD INSULIN 0 Yes [id number] USE 1 U nivers SYRINGE 5-02 SYRINGE ity of U-500 2 00:00: TWICE [place] mL 31 gauge 00 DAILY WITH Me dical x 15/64" MEALS. Branch Syrg BD INSULIN 0 Yes [id number] USE 1 U nivers SYRINGE 5-02 SYRINGE ity of U-500 2 00:00: TWICE [place] mL 31 gauge 00 DAILY WITH Me dical x 15/64" MEALS. Branch Syrg BD INSULIN Yes [id number] USE 1 U nivers SYRINGE 5-02 SYRINGE ity of U-500 2 00:00: TWICE [place] mL 31 gauge 00 DAILY WITH Me dical x 15/64" MEALS. Branch Syrg BD INSULIN 0 Yes [id number] USE 1 U nivers SYRINGE 5-02 SYRINGE ity of U-500 2 00:00: TWICE [place] mL 31 gauge 00 DAILY WITH Me dical x 15/64" MEALS. Branch Syrg BD INSULIN 0 Yes [id number] USE 1 U nivers SYRINGE 5-02 SYRINGE ity of U-500 2 00:00: TWICE [place] mL 31 gauge 00 DAILY WITH Me dical x 15/64" MEALS. Branch Syrg BD INSULIN 0 Yes [id number] USE 1 U nivers SYRINGE 5-02 SYRINGE ity of U-500 2 00:00: TWICE [place] mL 31 gauge 00 DAILY WITH Me dical x 15/64" MEALS. Branch Syrg BD INSULIN 0 Yes [id number] USE 1 U nivers SYRINGE 5-02 SYRINGE ity of U-500 2 00:00: TWICE [place] mL 31 gauge 00 DAILY WITH Me dical x 15/64" MEALS. Branch Syrg BD INSULIN 0 Yes [id number] USE 1 U nivers SYRINGE 5-02 SYRINGE ity of U-500 2 00:00: TWICE [place] mL 31 gauge 00 DAILY WITH Me dical x 15/64" MEALS. Branch Syrg BD INSULIN 0 Yes [id number] USE 1 U nivers SYRINGE 5-02 SYRINGE ity of U-500 2 00:00: TWICE [place] mL 31 gauge 00 DAILY WITH Me dical x 15/64" MEALS. Branch Syrg GABAPENTIN 2021-0 2021- No [id number] TAKE 1 [facility] 600 mg 5-02 05-31 TABLET BY ity of tablet 00:00: 00:00 MOUTH [place] 00 :00 THREE Medical TIMES Branch DAILY sucralfate 0 Yes 1g Take 1 g [facility] (CARAFATE) 3-27 by mouth. An ege 1 g tablet 00:00: of 00 Medicin e sucralfate 2021-0 Yes 1g Take 1 g [facility] (CARAFATE) 3-27 by mouth. An ege 1 g tablet 00:00: of 00 Medicin e sucralfate 2021-0 Yes 1g Take 1 g [facility] (CARAFATE) 3-27 by mouth. An ege 1 g tablet 00:00: Medicin e sucralfate 2021-0 Yes 1g Take 1 g [facility] (CARAFATE) 3-27 by mouth. An ege 1 g tablet 00:00: of 00 Medicin e sucralfate 2021-0 Yes [id number] 1g Take 1 [facility] 1 gram 3-27 tablet by ity of tablet 00:00: mouth [place] 00 before Medical meals and Branch at bedtime. sucralfate 2021-0 Yes [id number] 1g Take 1 [facility] 1 gram 3-27 tablet by ity of tablet 00:00: mouth [place] 00 before Medical meals and Branch at bedtime. sucralfate 2022-0 Yes [id number] 1g Take 1 [facility] 1 gram 3-27 tablet by ity of tablet 00:00: mouth [place] 00 before Medical meals and Branch at bedtime. sucralfate 2022-0 Yes [id number] 1g Take 1 [facility] 1 gram 3-27 tablet by ity of tablet 00:00: mouth [place] 00 before Medical meals and Branch at bedtime. sucralfate 2-0 Yes [id number] 1g Take 1 [facility] 1 gram 3-27 tablet by ity of tablet 00:00: mouth [place] 00 before Medical meals and Branch at bedtime. sucralfate 2022-0 Yes [id number] 1g Take 1 [facility] 1 gram 3-27 tablet by ity of tablet 00:00: mouth [place] 00 before Medical meals and Branch at bedtime. sucralfate 2022-0 Yes [id number] 1g Take 1 [facility] 1 gram 3-27 tablet by ity of tablet 00:00: mouth [place] 00 before Medical meals and Branch at bedtime. sucralfate 2022-0 Yes [id number] 1g Take 1 [facility] 1 gram 3-27 tablet by ity of tablet 00:00: mouth [place] 00 before Medical meals and Branch at bedtime. sucralfate 2022-0 Yes [id number] 1g Take 1 [facility] 1 gram 3-27 tablet by ity of tablet 00:00: mouth [place] 00 before Medical meals and Branch at bedtime. sucralfate 2-0 Yes [id number] 1g Take 1 [facility] 1 gram 3-27 tablet by ity of tablet 00:00: mouth [place] 00 before Medical meals and Branch at bedtime. sucralfate 2022-0 Yes [id number] 1g Take 1 [facility] 1 gram 3-27 tablet by ity of tablet 00:00: mouth [place] 00 before Medical meals and Branch at bedtime. sucralfate 2-0 Yes [id number] 1g Take 1 [facility] 1 gram 3-27 tablet by ity of tablet 00:00: mouth [place] 00 before Medical meals and Branch at bedtime. sucralfate 2021-0 Yes [id number] 1g Take 1 [facility] 1 gram 3-27 tablet by ity of tablet 00:00: mouth [place] 00 before Medical meals and Branch at bedtime. sucralfate 2-0 Yes [id number] 1g Take 1 [facility] 1 gram 3-27 tablet by ity of tablet 00:00: mouth [place] 00 before Medical meals and Branch at bedtime. sucralfate 2021-0 Yes [id number] 1g Take 1 [facility] 1 gram 3-27 tablet by ity of tablet 00:00: mouth [place] 00 before Medical meals and Branch at bedtime. sucralfate 2021-0 Yes [id number] 1g Take 1 [facility] 1 gram 3-27 tablet by ity of tablet 00:00: mouth [place] 00 before Medical meals and Branch at bedtime. sucralfate 2022-0 Yes [id number] 1g Take 1 [facility] 1 gram 3-27 tablet by ity of tablet 00:00: mouth [place] 00 before Medical meals and Branch at bedtime. sucralfate 2022-0 Yes [id number] 1g Take 1 [facility] 1 gram 3-27 tablet by ity of tablet 00:00: mouth [place] 00 before Medical meals and Branch at bedtime. sucralfate 2022-0 Yes [id number] 1g Take 1 [facility] 1 gram 3-27 tablet by ity of tablet 00:00: mouth [place] 00 before Medical meals and Branch at bedtime. sucralfate 2022-0 Yes [id number] 1g Take 1 [facility] 1 gram 3-27 tablet by ity of tablet 00:00: mouth [place] 00 before Medical meals and Branch at bedtime. sucralfate 2022-0 Yes [id number] 1g Take 1 [facility] 1 gram 3-27 tablet by ity of tablet 00:00: mouth [place] 00 before Medical meals and Branch at bedtime. sucralfate 2022-0 Yes [id number] 1g Take 1 [facility] 1 gram 3-27 tablet by ity of tablet 00:00: mouth [place] 00 before Medical meals and Branch at bedtime. sucralfate 2022-0 Yes [id number] 1g Take 1 [facility] 1 gram 3-27 tablet by ity of tablet 00:00: mouth [place] 00 before Medical meals and Branch at bedtime. sucralfate 2022-0 Yes [id number] 1g Take 1 [facility] 1 gram 3-27 tablet by ity of tablet 00:00: mouth [place] 00 before Medical meals and Branch at bedtime. sucralfate 2022-0 Yes [id number] 1g Take 1 [facility] 1 gram 3-27 tablet by ity of tablet 00:00: mouth [place] 00 before Medical meals and Branch at bedtime. sucralfate 2-0 Yes [id number] 1g Take 1 [facility] 1 gram 3-27 tablet by ity of tablet 00:00: mouth [place] 00 before Medical meals and Branch at bedtime. sucralfate 2022-0 Yes [id number] 1g Take 1 [facility] 1 gram 3-27 tablet by ity of tablet 00:00: mouth [place] 00 before Medical meals and Branch at bedtime. sucralfate 2022-0 Yes [id number] 1g Take 1 [facility] 1 gram 3-27 tablet by ity of tablet 00:00: mouth [place] 00 before Medical meals and Branch at bedtime. sucralfate 2022-0 Yes [id number] 1g Take 1 [facility] 1 gram 3-27 tablet by ity of tablet 00:00: mouth [place] 00 before Medical meals and Branch at bedtime. sucralfate 2022-0 Yes [id number] 1g Take 1 [facility] 1 gram 3-27 tablet by ity of tablet 00:00: mouth [place] 00 before Medical meals and Branch at bedtime. sucralfate 2022-0 Yes [id number] 1g Take 1 [facility] 1 gram 3-27 tablet by ity of tablet 00:00: mouth [place] 00 before Medical meals and Branch at bedtime. sucralfate 2022-0 Yes [id number] 1g Take 1 [facility] 1 gram 3-27 tablet by ity of tablet 00:00: mouth [place] 00 before Medical meals and Branch at bedtime. sucralfate 2-0 Yes [id number] 1g Take 1 [facility] 1 gram 3-27 tablet by ity of tablet 00:00: mouth [place] 00 before Medical meals and Branch at bedtime. sucralfate 2-0 Yes [id number] 1g Take 1 [facility] 1 gram 3-27 tablet by ity of tablet 00:00: mouth [place] 00 before Medical meals and Branch at bedtime. sucralfate 2021-0 Yes [id number] 1g Take 1 [facility] 1 gram 3-27 tablet by ity of tablet 00:00: mouth [place] 00 before Medical meals and Branch at bedtime. sucralfate 2021-0 Yes [id number] 1g Take 1 [facility] 1 gram 3-27 tablet by ity of tablet 00:00: mouth [place] 00 before Medical meals and Branch at bedtime. sucralfate 2021-0 Yes [id number] 1g Take 1 [facility] 1 gram 3-27 tablet by ity of tablet 00:00: mouth [place] 00 before Medical meals and Branch at bedtime. sucralfate 2021-0 Yes [id number] 1g Take 1 [facility] 1 gram 3-27 tablet by ity of tablet 00:00: mouth [place] 00 before Medical meals and Branch at bedtime. sucralfate 2021-0 Yes [id number] 1g Take 1 [facility] 1 gram 3-27 tablet by ity of tablet 00:00: mouth [place] 00 before Medical meals and Branch at bedtime. sucralfate 2021-0 Yes [id number] 1g Take 1 [facility] 1 gram 3-27 tablet by ity of tablet 00:00: mouth [place] 00 before Medical meals and Branch at bedtime. sucralfate 2-0 Yes [id number] 1g Take 1 [facility] 1 gram 3-27 tablet by ity of tablet 00:00: mouth [place] 00 before Medical meals and Branch at bedtime. sucralfate 2-0 Yes [id number] 1g Take 1 [facility] 1 gram 3-27 tablet by ity of tablet 00:00: mouth [place] 00 before Medical meals and Branch at bedtime. sucralfate 2022-0 Yes [id number] 1g Take 1 [facility] 1 gram 3-27 tablet by ity of tablet 00:00: mouth [place] 00 before Medical meals and Branch at bedtime. sucralfate 2-0 Yes [id number] 1g Take 1 [facility] 1 gram 3-27 tablet by ity of tablet 00:00: mouth [place] 00 before Medical meals and Branch at bedtime. sucralfate 2-0 Yes [id number] 1g Take 1 [facility] 1 gram 3-27 tablet by ity of tablet 00:00: mouth [place] 00 before Medical meals and Branch at bedtime. sucralfate 2021-0 Yes [id number] 1g Take 1 [facility] 1 gram 3-27 tablet by ity of tablet 00:00: mouth [place] 00 before Medical meals and Branch at bedtime. sucralfate 2021-0 Yes [id number] 1g Take 1 [facility] 1 gram 3-27 tablet by ity of tablet 00:00: mouth [place] 00 before Medical meals and Branch at bedtime. sucralfate 2021-0 Yes [id number] 1g Take 1 [facility] 1 gram 3-27 tablet by ity of tablet 00:00: mouth [place] 00 before Medical meals and Branch at bedtime. sucralfate 2021-0 Yes [id number] 1g Take 1 [facility] 1 gram 3-27 tablet by ity of tablet 00:00: mouth [place] 00 before Medical meals and Branch at bedtime. sucralfate 2021-0 Yes [id number] 1g Take 1 [facility] 1 gram 3-27 tablet by ity of tablet 00:00: mouth [place] 00 before Medical meals and Branch at bedtime. sucralfate 2021-0 Yes [id number] 1g Take 1 [facility] 1 gram 3-27 tablet by ity of tablet 00:00: mouth [place] 00 before Medical meals and Branch at bedtime. sucralfate 2021-0 Yes [id number] 1g Take 1 [facility] 1 gram 3-27 tablet by ity of tablet 00:00: mouth [place] 00 before Medical meals and Branch at bedtime. metoprolol 2021-0 Yes 100mg QD Take 100 [...] as needed for Anxiety. hydrALAZINE Yes 10mg Q.[id number] Take [address] [facility] (APRESOLINE 3-11 [id number] by mouth [facility] ) 10 MG [...] MG 02 Center tablet gabapentin Yes 100mg Q.[id number] Take [address] [facility] (NEURONTIN) 3-11 [id number] mg by L ukes 100 MG 14:10: [...] needed for Anxiety. hydrALAZINE 2021-0 Yes 10mg Q.[id number] Take [address] [facility] (APRESOLINE 3-11 [id number] by [facility] ) 10 MG [...] 02 Center tablet gabapentin 2021-0 Yes 100mg Q.[id number] Take [address] [facility] (NEURONTIN) 3-11 [id number] mg by L ukes 100 MG 14:10: [...] as needed for Anxiety. hydrALAZINE Yes 10mg Q.[id number] Take [address] [facility] (APRESOLINE 3-11 [id number] by mouth [facility] ) 10 MG [...] MG 02 Center tablet gabapentin Yes 100mg Q.[id number] Take [address] [facility] (NEURONTIN) 3-11 [id number] mg by L u[facility] 100 MG 14:10: [...] needed for Anxiety. hydrALAZINE 2021-0 Yes 10mg Q.[id number] Take [address] [facility] (APRESOLINE 3-11 [id number] by mouth [facility] ) 10 MG [...] MG 02 Center tablet gabapentin Yes 100mg Q.[id number] Take [address] [facility] (NEURONTIN) 3-11 [id number] mg by L u[facility] 100 MG 14:10: [...] as needed for Anxiety. hydrALAZINE Yes 10mg Q.20610313 Take [address] [facility] (APRESOLINE 3-11 [id number] by mouth [facility] ) 10 MG [...] MG 02 Center tablet gabapentin Yes 100mg Q.[id number] Take [address] [facility] (NEURONTIN) 3-11 [id number] mg by L u[facility] 100 MG 14:10: [...] needed for Anxiety. hydrALAZINE 0 Yes 10mg Q.[id number] Take [address] [facility] (APRESOLINE 3-11 [id number] by mouth [facility] ) 10 MG [...] 02 Center tablet gabapentin 2021-0 Yes 100mg Q.[id number] Take [address] [facility] (NEURONTIN) 3-11 [id number] mg by L u[facility] 100 MG 14:10: [...] Medic al MG tablet 02 Center prucaloprid 2022-0 Yes 2mg QD Take 2 mg C [...] as needed for Anxiety. hydrALAZINE Yes 10mg Q.27644200 Take [address] [facility] (APRESOLINE 3-11 [id number] [facility] mouth [facility] ) 10 MG [...] MG 02 Center tablet gabapentin Yes 100mg Q.[id number] Take [address] [facility] (NEURONTIN) 3-11 [id number] mg by L u[facility] 100 MG 14:10: [...] needed for Anxiety. hydrALAZINE 0 Yes 10mg Q.[id number] Take [address] [facility] (APRESOLINE 3-11 [id number] by mouth [facility] ) 10 MG [...] MG 02 Center tablet gabapentin Yes 100mg Q.[id number] Take [address] [facility] (NEURONTIN) 3-11 [id number] mg by L u[facility] 100 MG 14:10: [...] as needed for Anxiety. hydrALAZINE Yes 10mg Q.[id number] Take [address] [facility] (APRESOLINE 3-11 [id number] by mouth [facility] ) 10 MG [...] MG 02 Center tablet gabapentin Yes 100mg Q.[id number] Take [address] [facility] (NEURONTIN) 3-11 [id number] mg by L ukes 100 MG 14:10: [...] needed for Anxiety. hydrALAZINE 0 Yes 10mg Q.[id number] Take [address] [facility] (APRESOLINE 3-11 [id number] by mouth [facility] ) 10 MG [...] MG 02 Center tablet gabapentin Yes 100mg Q.[id number] Take [address] [facility] (NEURONTIN) 3-11 [id number] mg by L u[facility] 100 MG 14:10: [...] as needed for Anxiety. hydrALAZINE Yes 10mg Q.[id number] Take [address] [facility] (APRESOLINE 3-11 [id number] by mouth [facility] ) 10 MG [...] MG 02 Center tablet gabapentin Yes 100mg Q.[id number] Take [address] [facility] (NEURONTIN) 3-11 [id number] mg by L ukes 100 MG 14:10: [...] TWICE Medical DAILY Branch HYDROCHLORO 0 Yes [id number] 12.5mg TAKE 1 [facility] THIAZIDE 1-19 CAPSULE BY ity o f 12.5 mg 00:00: MOUTH [place] capsule 00 DAILY Medical Branch HYDROCHLORO 0 Yes [id number] 12.5mg TAKE 1 [facility] THIAZIDE 1-19 CAPSULE BY ity o f 12.5 mg 00:00: MOUTH [place] capsule 00 DAILY Medical Branch HYDROCHLORO 0 Yes [id number] 12.5mg TAKE 1 [facility] THIAZIDE 1-19 CAPSULE BY ity o f 12.5 mg 00:00: MOUTH [place] capsule 00 DAILY Medical Branch HYDROCHLORO 0 Yes [id number] 12.5mg TAKE 1 [facility] THIAZIDE 1-19 CAPSULE BY ity o f 12.5 mg 00:00: MOUTH [place] capsule 00 DAILY Medical Branch HYDROCHLORO 2021-0 2021- No [id number] 12.5mg TAKE 1 [facility] THIAZIDE 1-19 07-18 CAPSULE BY ity of 12.5 mg 00:00: 00:00 MOUTH [place] capsule 00 :00 DAILY Medical Branch Prucaloprid 0 Yes [id number] 2mg Take 2 mg [facility] e Succinate 1-06 by mouth An ege 2 MG TABS 00:00: daily. of Medicin e Prucaloprid 0 Yes [id number] 2mg Take 2 mg [place] e Succinate 1-06 by mouth An ege 2 MG TABS 00:00: daily. of Medicin e PEG-KCl-NaC Yes [id number] [MOVI [facility] l-NaSulf-Na 1-06 PREP] Take [facility]: as of (MOVIPREP) 00 directed. Medi patsy 100 g SOLR e Prucaloprid 0 Yes [id number] 2mg Take 2 mg [place] e Succinate 1-06 by mouth An ege 2 MG TABS 00:00: daily. of Medicin e Prucaloprid Yes [id number] 2mg Take 2 mg [place] [facility] Succinate -06 by mouth An ege 2 MG TABS 00:00: daily. of Medicin e Prucaloprid Yes [id number] 2mg Take 2 mg [facility] e Succinate -06 by mouth An ege 2 MG TABS 00:00: daily. of Medicin e nitroglycer 2020-11 Yes nitroglyce [place] 12-28 rin 0.4 mg [place] (NITROSTAT) 00:00: sublingual of 0.4 mg [address] 1 e tablet TABLET UNDER THE TONGUE EVERY 5 MINUTES NEEDED FOR CHEST PAIN. nitroglycer 2020-11 Yes nitroglyce [place] 12-28 rin 0.4 mg [facility] (NITROSTAT) 00:00: sublingual of 0.4 mg [address] 1 e tablet TABLET UNDER THE TONGUE EVERY 5 MINUTES NEEDED FOR CHEST PAIN. nitroglycer 2020-11 Yes nitroglyce [place] 12-28 rin 0.4 mg [place] (NITROSTAT) 00:00: sublingual of 0.4 mg 00 [...] AREA FOUR TIMES DAILY DICLOFENAC 2020-11 Yes [id number] APPLY TO Univers SODIUM 1 % 2-02 THE ity of gel 00:00: AFFECTED [place] 00 AREA FOUR Medical TIMES Branch DAILY DICLOFENAC 2020-11 Yes [id number] APPLY TO Univers SODIUM 1 % 2-02 THE ity of gel 00:00: AFFECTED [place] 00 AREA FOUR Medical TIMES Branch DAILY DICLOFENAC 2020-11 Yes [id number] APPLY TO Univers SODIUM 1 % 2-02 THE ity of gel 00:00: AFFECTED [place] 00 AREA FOUR Medical TIMES Branch DAILY DICLOFENAC 2020-11 Yes [id number] APPLY TO Univers SODIUM 1 % 2-02 THE ity of gel 00:00: AFFECTED [place] 00 AREA FOUR Medical TIMES Branch DAILY DICLOFENAC 2020-11 Yes [id number] APPLY TO Univers SODIUM 1 % 2-02 THE ity of gel 00:00: AFFECTED [place] 00 AREA FOUR Medical TIMES Branch DAILY DICLOFENAC 2020-11 Yes [id number] APPLY TO Univers SODIUM 1 % 2-02 THE ity of gel 00:00: AFFECTED [place] 00 AREA FOUR Medical TIMES Branch DAILY DICLOFENAC 2020-11 Yes [id number] APPLY TO Univers SODIUM 1 % 2-02 THE ity of gel 00:00: AFFECTED [place] [address] [facility] FOUR Medical TIMES Branch DAILY DICLOFENAC 2020-11 Yes [id number] APPLY TO Univers SODIUM 1 % 2-02 THE ity of gel 00:00: AFFECTED [place] [address] [facility] FOUR Medical TIMES Branch DAILY DICLOFENAC 2020-11 Yes [id number] APPLY TO Univers SODIUM 1 % 2-02 THE ity of gel 00:00: AFFECTED [address] [facility] FOUR Medical TIMES Branch DAILY DICLOFENAC 2020-11 Yes [id number] APPLY TO Univers SODIUM 1 % 2-02 THE ity of gel 00:00: AFFECTED [place] 00 [facility] Medical TIMES Branch DAILY DICLOFENAC 2020-11 Yes [id number] APPLY TO Univers SODIUM 1 % 2-02 THE ity of gel 00:00: AFFECTED [place] 00 [facility] Medical TIMES Branch DAILY DICLOFENAC 2020-11 Yes [id number] APPLY TO Univers SODIUM 1 % 2-02 THE ity of gel 00:00: AFFECTED [place] [facility] Medical TIMES Branch DAILY DICLOFENAC 2020-11 Yes [id number] APPLY TO Univers SODIUM 1 % 2-02 THE ity of gel 00:00: AFFECTED [place] [facility] Medical TIMES Branch DAILY DICLOFENAC 2020-11 Yes [id number] APPLY TO Univers SODIUM 1 % 2-02 THE ity of gel 00:00: AFFECTED [place] [facility] Medical TIMES Branch DAILY DICLOFENAC 2020-11 Yes [id number] APPLY TO Univers SODIUM 1 % 2-02 THE ity of gel 00:00: AFFECTED [place] [facility] Medical TIMES Branch DAILY DICLOFENAC 2020-11 Yes [id number] APPLY TO Univers SODIUM 1 % 2-02 THE ity of gel 00:00: AFFECTED [place] [facility] FOUR Medical TIMES Branch DAILY DICLOFENAC 2020-11 Yes [id number] APPLY TO Univers SODIUM 1 % 2-02 THE ity of gel 00:00: AFFECTED [place] [address] [facility] FOUR Medical TIMES Branch DAILY DICLOFENAC 2020-11 Yes [id number] APPLY TO Univers SODIUM 1 % 2-02 THE ity of gel 00:00: AFFECTED [place] [facility] FOUR Medical TIMES Branch DAILY DICLOFENAC 2020-11 Yes [id number] APPLY TO Univers SODIUM 1 % 2-02 THE ity of gel 00:00: AFFECTED [place] [facility] Medical TIMES Branch DAILY DICLOFENAC 2020-11 Yes [id number] APPLY TO Univers SODIUM 1 % 2-02 THE ity of gel 00:00: AFFECTED [place] [address] [facility] FOUR Medical TIMES Branch DAILY DICLOFENAC 2020-11 Yes [id number] APPLY TO Univers SODIUM 1 % 2-02 THE ity of gel 00:00: AFFECTED [place] 00 AREA FOUR Medical TIMES Branch DAILY DICLOFENAC 2020-11 Yes [id number] APPLY TO Univers SODIUM 1 % 2-02 THE ity of gel 00:00: AFFECTED [place] 00 AREA FOUR Medical TIMES Branch DAILY DICLOFENAC 2020-11- No [id number] APPLY TO Univers SODIUM 1 % 2-02 10-25 THE ity of gel 00:00: 00:00 AFFECTED [place] 00 :00 AREA FOUR Medical TIMES Branch DAILY DICLOFENAC 2020-11- No [id number] APPLY TO Univers SODIUM 1 % 2-02 10-25 THE ity of gel 00:00: 00:00 AFFECTED [place] 00 :00 AREA FOUR Medical TIMES Branch DAILY colchicine 2020-11 Yes [id number] .6mg Take 1 U nivers 0.6 mg 0-07 tablet by ity of tablet 00:00: mouth [place] 00 daily. Medical Branch colchicine 2020-11 Yes [id number] .6mg Take 1 U nivers 0.6 mg 0-07 tablet by ity of tablet 00:00: mouth [place] 00 daily. Medical Branch colchicine 2020-11 Yes [id number] .6mg Take 1 U nivers 0.6 mg 0-07 tablet by ity of tablet 00:00: mouth [place] 00 daily. Medical Branch colchicine 2020-11 Yes [id number] .6mg Take 1 U nivers 0.6 mg 0-07 tablet by ity of tablet 00:00: mouth [place] 00 daily. Medical Branch colchicine 2020-11 Yes [id number] .6mg Take 1 U nivers 0.6 mg 0-07 tablet by ity of tablet 00:00: mouth [place] 00 daily. Medical Branch colchicine 2020-11 Yes [id number] .6mg Take 1 U nivers 0.6 mg 0-07 tablet by ity of tablet 00:00: mouth [place] 00 daily. Medical Branch colchicine 2020-11 Yes [id number] .6mg Take 1 U nivers 0.6 mg 0-07 tablet by ity of tablet 00:00: mouth [place] 00 daily. Medical Branch colchicine 2020-11 Yes [id number] .6mg Take 1 U nivers 0.6 mg 0-07 tablet by ity of tablet 00:00: mouth [place] 00 daily. Medical Branch colchicine 2020-11 Yes [id number] .6mg Take 1 U nivers 0.6 mg 0-07 tablet by ity of tablet 00:00: mouth [place] 00 daily. Medical Branch colchicine 2020-11 Yes [id number] .6mg Take 1 U nivers 0.6 mg 0-07 tablet by ity of tablet 00:00: mouth [place] 00 daily. Medical Branch colchicine 2020-11 Yes [id number] .6mg Take 1 U nivers 0.6 mg 0-07 tablet by ity of tablet 00:00: mouth [place] 00 daily. Medical Branch colchicine 2020-11 Yes [id number] .6mg Take 1 U nivers 0.6 mg 0-07 tablet by ity of tablet 00:00: mouth [place] 00 daily. [facility] Branch colchicine 2020-11 Yes [id number] .6mg Take 1 U nivers 0.6 mg 0-07 tablet by ity of tablet 00:00: mouth [place] 00 daily. [facility] Branch colchicine 2020-11- No [id number] .6mg Take 1 Univers 0.6 mg 0-07 09-19 tablet by ity of tablet 00:00: 00:00 mouth [place] 00 :00 daily. Medical Branch TRUEPLUS Yes USE TWICE Univ ers INSULIN 1 9-14 DAILY ity of mL 30 gauge 00:00: [place] x 5/16 Syrg [facility] Branch TRUEPLUS 0 Yes USE TWICE Univ ers INSULIN 1 9-14 DAILY ity of mL 30 gauge 00:00: [place] x 5/16 Syrg [facility] Branch TRUEPLUS 2020-0 Yes USE TWICE Univ ers INSULIN 1 9-14 DAILY ity of mL 30 gauge 00:00: [place] x 5/16 Syrg [facility] Branch TRUEPLUS 2020-0 Yes USE TWICE Univ ers INSULIN 1 9-14 DAILY ity of mL 30 gauge 00:00: [place] x 5/16 Syrg Medical Branch TRUEPLUS 2020-0 Yes USE TWICE Univ ers INSULIN 1 9-14 DAILY ity of mL 30 gauge 00:00: [place] x 5/16 Syrg [facility] Branch TRUEPLUS 2020-0 Yes USE TWICE Univ [...] [place] x 03/16 Syrg Medical Branch TRUEPLUS 202-0 Yes USE [...] [place] x 16 Syrg Medical Branch TRUEPLUS 1-0 Yes USE TWICE Univ ers INSULIN 1 [...] 30 gauge 00:00: [place] x 03/16 Syrg 00 Medical Branch TRUEPLUS 202-0 Yes USE TWICE [...] [place] x 16 Syrg Medical Branch TRUEPLUS 202-0 Yes USE TWICE Univ ers INSULIN 1 9-14 DAILY ity of mL 30 gauge 00:00: [place] x /16 Syrg Medical Branch TRUEPLUS 202-0 Yes USE TWICE Univ ers INSULIN 1 9-14 DAILY ity of mL 30 gauge 00:00: [place] x 03/16 Syrg Medical Branch mirtazapine 2020-0 Yes 15mg Take 15 mg [facility] 15 mg 7-14 by mouth ity of tablet 09:38: at [place] [address] bedtime. Medical Branch mesalamine 2020-0 Yes 1.5g Take 1.5 g U nivers 0.375 gram 7-14 by mouth ity o f 24 hr 09:38: daily. [facility] 49 Medical Branch mirtazapine 2020-0 Yes 15mg Take 15 mg [facility] 15 mg 7-14 by mouth ity of tablet 09:38: at [place] [address] bedtime. Medical Branch mesalamine 2020-0 Yes 1.5g Take 1.5 g U nivers 0.375 gram 7-14 by mouth ity o f 24 hr 09:38: daily. [facility] 49 Medical Branch mirtazapine 2020-0 Yes 15mg Take 15 mg [facility] 15 mg 7-14 by mouth ity of tablet 09:38: at [place] [address] bedtime. Medical Branch mesalamine 2020-0 Yes 1.5g Take 1.5 g U nivers 0.375 gram 7-14 by mouth ity o f 24 hr 09:38: daily. [place] capsule 49 Medical Branch mirtazapine 2020-0 Yes 15mg Take 15 mg [facility] 15 mg 7-14 by mouth ity of tablet 09:38: at [place] [address] bedtime. Medical Branch mesalamine 2020-0 Yes 1.5g Take 1.5 g U nivers 0.375 gram 7-14 by mouth ity o f 24 hr 09:38: daily. [place] capsule 49 Medical Branch mirtazapine 2020-0 Yes 15mg Take 15 mg [facility] 15 mg 7-14 by mouth ity of tablet 09:38: at [place] [address] bedtime. Medical Branch mesalamine 2020-0 Yes 1.5g Take 1.5 g U nivers 0.375 gram 7-14 by mouth ity o f 24 hr 09:38: daily. [place] capsule 49 Medical Branch mirtazapine 2020-0 Yes 15mg Take 15 mg [facility] 15 mg 7-14 by mouth ity of tablet 09:38: at [place] [address] bedtime. Medical Branch mesalamine 2020-0 Yes 1.5g Take 1.5 g U nivers 0.375 gram 7-14 by mouth ity o f 24 hr 09:38: daily. [facility] 49 Medical Branch mirtazapine 2020-0 Yes 15mg Take 15 mg [facility] 15 mg 7-14 by mouth ity of tablet 09:38: at [place] [address] bedtime. Medical Branch mesalamine 2020-0 Yes 1.5g Take 1.5 g U nivers 0.375 gram 7-14 by mouth ity o f 24 hr 09:38: daily. [facility] 49 Medical Branch mirtazapine 2020-0 Yes 15mg Take 15 mg [facility] 15 mg 7-14 by mouth ity of tablet 09:38: at [place] [address] bedtime. Medical Branch mesalamine 2020-0 Yes 1.5g Take 1.5 g U nivers 0.375 gram 7-14 by mouth ity o f 24 hr 09:38: daily. [place] capsule 49 Medical Branch mirtazapine 2020-0 Yes 15mg Take 15 mg [facility] 15 mg 7-14 by mouth ity of tablet 09:38: at [place] [address] bedtime. Medical Branch mesalamine 2020-0 Yes 1.5g Take 1.5 g U nivers 0.375 gram 7-14 by mouth ity o f 24 hr 09:38: daily. [place] capsule 49 Medical Branch mirtazapine 2020-0 Yes 15mg Take 15 mg [facility] 15 mg 7-14 by mouth ity of tablet 09:38: at [place] [address] bedtime. Medical Branch mesalamine 2020-0 Yes 1.5g Take 1.5 g U nivers 0.375 gram 7-14 by mouth ity o f 24 hr 09:38: daily. [place] capsule 49 Medical Branch mirtazapine 2020-0 Yes 15mg Take 15 mg [facility] 15 mg 7-14 by mouth ity of tablet 09:38: at [place] [address] bedtime. Medical Branch mesalamine 2020-0 Yes 1.5g Take 1.5 g U nivers 0.375 gram 7-14 by mouth ity o f 24 hr 09:38: daily. [place] [facility] mirtazapine 2020-0 Yes 15mg Take 15 mg [facility] 15 mg 7-14 by mouth ity of tablet 09:38: at [place] [address] bedtime. Medical Branch mesalamine 2020-0 Yes 1.5g Take 1.5 g U nivers 0.375 gram 7-14 by mouth ity o f 24 hr 09:38: daily. [place] [facility] mirtazapine 2020-0 Yes 15mg Take 15 mg [facility] 15 mg 7-14 by mouth ity of tablet 09:38: at [place] [address] bedtime. Medical [place] mesalamine 2020-0 Yes 1.5g Take 1.5 g U nivers 0.375 gram 7-14 by mouth ity o f 24 hr 09:38: daily. [facility] 49 [facility] mirtazapine 2020-0 Yes 15mg Take 15 mg [facility] 15 mg 7-14 by mouth ity of tablet 09:38: at [place] [address] bedtime. Medical [place] mesalamine 2020-0 Yes 1.5g Take 1.5 g U nivers 0.375 gram 7-14 by mouth ity o f 24 hr 09:38: daily. [facility] 49 [facility] mirtazapine 2020-0 Yes 15mg Take 15 mg [facility] 15 mg 7-14 by mouth ity of tablet 09:38: at [place] [address] bedtime. Medical Branch mesalamine 2020-0 Yes 1.5g Take 1.5 g U nivers 0.375 gram 7-14 by mouth ity o f 24 hr 09:38: daily. [place] [facility] mirtazapine 2020-0 Yes 15mg Take 15 mg [facility] 15 mg 7-14 by mouth ity of tablet 09:38: at [place] [address] bedtime. Medical [place] mesalamine 2020-0 Yes 1.5g Take 1.5 g U nivers 0.375 gram 7-14 by mouth ity o f 24 hr 09:38: daily. [place] [facility] mirtazapine 2020-0 Yes 15mg Take 15 mg [facility] 15 mg 7-14 by mouth ity of tablet 09:38: at [place] [address] bedtime. Medical Branch mesalamine 2020-0 Yes 1.5g Take 1.5 g U nivers 0.375 gram 7-14 by mouth ity o f 24 hr 09:38: daily. [place] [facility] mirtazapine 2020-0 Yes 15mg Take 15 mg [facility] 15 mg 7-14 by mouth ity of tablet 09:38: at [place] [address] bedtime. Medical [facility] mesalamine 2020-0 Yes 1.5g Take 1.5 g U nivers 0.375 gram 7-14 by mouth ity o f 24 hr 09:38: daily. [place] [facility] mirtazapine 2020-0 Yes 15mg Take 15 mg [facility] 15 mg 7-14 by mouth ity of tablet 09:38: at [place] [address] bedtime. Medical [facility] mesalamine 2020-0 Yes 1.5g Take 1.5 g U nivers 0.375 gram 7-14 by mouth ity o f 24 hr 09:38: daily. [facility] 49 [facility] mirtazapine 2020-0 Yes 15mg Take 15 mg [facility] 15 mg 7-14 by mouth ity of tablet 09:38: at [place] [address] bedtime. Medical Branch mesalamine 2020-0 Yes 1.5g Take 1.5 g U nivers 0.375 gram 7-14 by mouth ity o f 24 hr 09:38: daily. [facility] 49 [facility] mirtazapine 2020-0 Yes 15mg Take 15 mg [facility] 15 mg 7-14 by mouth ity of tablet 09:38: at [place] [address] bedtime. Medical Branch mesalamine 2020-0 Yes 1.5g Take 1.5 g U nivers 0.375 gram 7-14 by mouth ity o f 24 hr 09:38: daily. [place] [facility] mirtazapine 2020-0 Yes 15mg Take 15 mg [facility] 15 mg 7-14 by mouth ity of tablet 09:38: at [place] [address] bedtime. Medical [facility] mesalamine 2020-0 Yes 1.5g Take 1.5 g U nivers 0.375 gram 7-14 by mouth ity o f 24 hr 09:38: daily. [place] [facility] mirtazapine 2020-0 Yes 15mg Take 15 mg [facility] 15 mg 7-14 by mouth ity of tablet 09:38: at [place] [address] bedtime. Medical Branch mesalamine 2020-0 Yes 1.5g Take 1.5 g U nivers 0.375 gram 7-14 by mouth ity o f 24 hr 09:38: daily. [place] [facility] mirtazapine 2020-0 Yes 15mg Take 15 mg [facility] 15 mg 7-14 by mouth ity of tablet 09:38: at [place] [address] bedtime. Medical [facility] mesalamine 2020-0 Yes 1.5g Take 1.5 g U nivers 0.375 gram 7-14 by mouth ity o f 24 hr 09:38: daily. [place] [facility] mirtazapine 2020-0 Yes 15mg Take 15 mg [facility] 15 mg 7-14 by mouth ity of tablet 09:38: at [place] [address] bedtime. Medical Branch mesalamine 2020-0 Yes 1.5g Take 1.5 g U nivers 0.375 gram 7-14 by mouth ity o f 24 hr 09:38: daily. [facility] 49 [facility] Branch mirtazapine 2020-0 Yes 15mg Take 15 mg [facility] 15 mg 7-14 by mouth ity of tablet 09:38: at [place] [address] bedtime. Medical Branch mesalamine 2020-0 Yes 1.5g Take 1.5 g U nivers 0.375 gram 7-14 by mouth ity o f 24 hr 09:38: daily. [facility] 49 [facility] mirtazapine 2020-0 Yes 15mg Take 15 mg [facility] 15 mg 7-14 by mouth ity of tablet 09:38: at [place] [address] bedtime. Medical Branch mesalamine 2020-0 Yes 1.5g Take 1.5 g U nivers 0.375 gram 7-14 by mouth ity o f 24 hr 09:38: daily. [place] [facility] mirtazapine 2020-0 Yes 15mg Take 15 mg [facility] 15 mg 7-14 by mouth ity of tablet 09:38: at [place] [address] bedtime. Medical [facility] mesalamine 2020-0 Yes 1.5g Take 1.5 g U nivers 0.375 gram 7-14 by mouth ity o f 24 hr 09:38: daily. [place] [facility] mirtazapine 2020-0 Yes 15mg Take 15 mg [facility] 15 mg 7-14 by mouth ity of tablet 09:38: at [place] [address] bedtime. Medical Branch mesalamine 2020-0 Yes 1.5g Take 1.5 g U nivers 0.375 gram 7-14 by mouth ity o f 24 hr 09:38: daily. [place] [facility] mirtazapine 2020-0 Yes 15mg Take 15 mg [facility] 15 mg 7-14 by mouth ity of tablet 09:38: at [place] [address] bedtime. Medical [facility] mesalamine 2020-0 Yes 1.5g Take 1.5 g U nivers 0.375 gram 7-14 by mouth ity o f 24 hr 09:38: daily. [place] [facility] mirtazapine 2020-0 Yes 15mg Take 15 mg [facility] 15 mg 7-14 by mouth ity of tablet 09:38: at [place] [address] bedtime. Medical [facility] mesalamine 2020-0 Yes 1.5g Take 1.5 g U nivers 0.375 gram 7-14 by mouth ity o f 24 hr 09:38: daily. [place] [facility] mirtazapine 2020-0 Yes 15mg Take 15 mg [facility] 15 mg 7-14 by mouth ity of tablet 09:38: at [place] [address] bedtime. Medical [facility] mesalamine 2020-0 Yes 1.5g Take 1.5 g U nivers 0.375 gram 7-14 by mouth ity o f 24 hr 09:38: daily. [place] [facility] mirtazapine 2020-0 Yes 15mg Take 15 mg [facility] 15 mg 7-14 by mouth ity of tablet 09:38: at [place] [address] bedtime. Medical Branch mesalamine 2020-0 Yes 1.5g Take 1.5 g U nivers 0.375 gram 7-14 by mouth ity o f 24 hr 09:38: daily. [place] [facility] mirtazapine 2020-0 Yes 15mg Take 15 mg [facility] 15 mg 7-14 by mouth ity of tablet 09:38: at [place] [address] bedtime. Medical [facility] mesalamine 2020-0 Yes 1.5g Take 1.5 g U nivers 0.375 gram 7-14 by mouth ity o f 24 hr 09:38: daily. [place] [facility] mirtazapine 2020-0 Yes 15mg Take 15 mg [facility] 15 mg 7-14 by mouth ity of tablet 09:38: at [place] [address] bedtime. Medical Branch mesalamine 2020-0 Yes 1.5g Take 1.5 g U nivers 0.375 gram 7-14 by mouth ity o f 24 hr 09:38: daily. [place] [facility] mirtazapine 2020-0 Yes 15mg Take 15 mg [facility] 15 mg 7-14 by mouth ity of tablet 09:38: at [place] [address] bedtime. Medical [facility] mesalamine 2020-0 Yes 1.5g Take 1.5 g U nivers 0.375 gram 7-14 by mouth ity o f 24 hr 09:38: daily. [place] [facility] mirtazapine 2020-0 Yes 15mg Take 15 mg [facility] 15 mg 7-14 by mouth ity of tablet 09:38: at [place] [address] bedtime. Medical [facility] mesalamine 2020-0 Yes 1.5g Take 1.5 g U nivers 0.375 gram 7-14 by mouth ity o f 24 hr 09:38: daily. [place] [facility] mirtazapine 2020-0 Yes 15mg Take 15 mg [facility] 15 mg 7-14 by mouth ity of tablet 09:38: at [place] [address] bedtime. Medical [facility] mesalamine 2020-0 Yes 1.5g Take 1.5 g U nivers 0.375 gram 7-14 by mouth ity o f 24 hr 09:38: daily. [place] [facility] mirtazapine 2020-0 Yes 15mg Take 15 mg [facility] 15 mg 7-14 by mouth ity of tablet 09:38: at [place] [address] bedtime. Medical [facility] mesalamine 2020-0 Yes 1.5g Take 1.5 g U nivers 0.375 gram 7-14 by mouth ity o f 24 hr 09:38: daily. [place] [facility] mirtazapine 2020-0 Yes 15mg Take 15 mg [facility] 15 mg 7-14 by mouth ity of tablet 09:38: at [place] [address] bedtime. Medical [facility] mesalamine 2020-0 Yes 1.5g Take 1.5 g U nivers 0.375 gram 7-14 by mouth ity o f 24 hr 09:38: daily. [place] [facility] mirtazapine 2020-0 Yes 15mg Take 15 mg [facility] 15 mg 7-14 by mouth ity of tablet 09:38: at [place] [address] bedtime. Medical [facility] mesalamine 2020-0 Yes 1.5g Take 1.5 g U nivers 0.375 gram 7-14 by mouth ity o f 24 hr 09:38: daily. [place] [facility] mirtazapine 2020-0 Yes 15mg Take 15 mg [facility] 15 mg 7-14 by mouth ity of tablet 09:38: at [place] [address] bedtime. Medical [facility] mesalamine 2020-0 Yes 1.5g Take 1.5 g U nivers 0.375 gram 7-14 by mouth ity o f 24 hr 09:38: daily. [place] [facility] mirtazapine 2020-0 Yes 15mg Take 15 mg [facility] 15 mg 7-14 by mouth ity of tablet 09:38: at [place] [address] bedtime. Medical [facility] mesalamine 2020-0 Yes 1.5g Take 1.5 g U nivers 0.375 gram 7-14 by mouth ity o f 24 hr 09:38: daily. [place] [facility] mirtazapine 2020-0 Yes 15mg Take 15 mg [facility] 15 mg 7-14 by mouth ity of tablet 09:38: at [place] [address] bedtime. Medical [facility] mesalamine 2020-0 Yes 1.5g Take 1.5 g U nivers 0.375 gram 7-14 by mouth ity o f 24 hr 09:38: daily. [place] [facility] 49 [facility] mirtazapine 2020-0 Yes 15mg Take 15 mg [facility] 15 mg 7-14 by mouth ity of tablet 09:38: at [place] [address] bedtime. Medical [facility] mesalamine 2020-0 Yes 1.5g Take 1.5 g U nivers 0.375 gram 7-14 by mouth ity o f 24 hr 09:38: daily. [place] [facility] 49 [facility] mirtazapine 2020-0 Yes 15mg Take 15 mg [facility] 15 mg 7-14 by mouth ity of tablet 09:38: at [place] [address] bedtime. Medical [place] mesalamine 2020-0 Yes 1.5g Take 1.5 g U nivers 0.375 gram 7-14 by mouth ity o f 24 hr 09:38: daily. [place] [facility] 49 [facility] mirtazapine 2020-0 Yes 15mg Take 15 mg [facility] 15 mg 7-14 by mouth ity of tablet 09:38: at [place] [address] bedtime. Medical [facility] mesalamine 2020-0 Yes 1.5g Take 1.5 g U nivers 0.375 gram 7-14 by mouth ity o f 24 hr 09:38: daily. [place] [facility] 49 [facility] mirtazapine 2020-0 Yes 15mg Take 15 mg [facility] 15 mg 7-14 by mouth ity of tablet 09:38: at [place] [address] bedtime. Medical [facility] mesalamine 2020-0 Yes 1.5g Take 1.5 g U nivers 0.375 gram 7-14 by mouth ity o f 24 hr 09:38: daily. [place] [facility] 49 [facility] mirtazapine 2020-0 Yes 15mg Take 15 mg [facility] 15 mg 7-14 by mouth ity of tablet 09:38: at [place] [address] bedtime. Medical [facility] mesalamine 2020-0 Yes 1.5g Take 1.5 g U nivers 0.375 gram 7-14 by mouth ity o f 24 hr 09:38: daily. [facility] 49 [facility] Branch mirtazapine 2020-0 Yes 15mg Take 15 mg [facility] 15 mg 7-14 by mouth ity of tablet 09:38: at [place] [address] bedtime. Medical Branch mesalamine 2020-0 Yes 1.5g Take 1.5 g U nivers 0.375 gram 7-14 by mouth ity o f 24 hr 09:38: daily. [facility] 49 [facility] Branch mirtazapine 2020-0 Yes 15mg Take 15 mg [facility] 15 mg 7-14 by mouth ity of tablet 09:38: at [place] [address] bedtime. Medical Branch mesalamine 2020-0 Yes 1.5g Take 1.5 g U nivers 0.375 gram 7-14 by mouth ity o f 24 hr 09:38: daily. [place] [facility] 49 [facility] mirtazapine 2020-0 Yes 15mg Take 15 mg [facility] 15 mg 7-14 by mouth ity of tablet 09:38: at [place] [address] bedtime. Medical Branch mesalamine 2020-0 Yes 1.5g Take 1.5 g U nivers 0.375 gram 7-14 by mouth ity o f 24 hr 09:38: daily. [address] predniSONE 2021-0 Yes prednisone B a[place] [...] e MOUTH EVERY DAY predniSONE 2020-0 Yes 10mg Take 10 mg U nivers 10 mg 6-22 by mouth ity of tablet 00:00: daily. [place] 00 [facility] predniSONE 2021-0 Yes 10mg Take 10 mg U nivers 10 mg 6-22 by mouth ity of tablet 00:00: daily. [place] [facility] predniSONE 2021-0 Yes 10mg Take 10 mg U nivers 10 mg 6-22 by mouth ity of tablet 00:00: daily. [place] [facility] predniSONE 2021-0 Yes 10mg Take 10 mg U nivers 10 mg 6-22 by mouth ity of tablet 00:00: daily. [place] [facility] predniSONE 2021-0 Yes 10mg Take 10 mg U nivers 10 mg 6-22 by mouth ity of tablet 00:00: daily. [place] [facility] predniSONE 2021-0 Yes 10mg Take 10 mg U nivers 10 mg 6-22 by mouth ity of tablet 00:00: daily. [address] predniSONE 2021-0 Yes 10mg Take 10 mg U nivers 10 mg 6-22 by mouth ity of tablet 00:00: daily. [place] [facility] predniSONE 2021-0 Yes 10mg Take 10 mg U nivers 10 mg 6-22 by mouth ity of tablet 00:00: daily. [place] [facility] predniSONE 2021-0 Yes 10mg Take 10 mg U nivers 10 mg 6-22 by mouth ity of tablet 00:00: daily. [place] [facility] predniSONE 2021-0 Yes 10mg Take 10 mg U nivers 10 mg 6-22 by mouth ity of tablet 00:00: daily. [place] [facility] predniSONE 2021-0 Yes 10mg Take 10 mg U nivers 10 mg 6-22 by mouth ity of tablet 00:00: daily. [place] [facility] predniSONE 2021-0 Yes 10mg Take 10 mg U nivers 10 mg 6-22 by mouth ity of tablet 00:00: daily. [place] [facility] predniSONE 2021-0 Yes 10mg Take 10 mg U nivers 10 mg 6-22 by mouth ity of tablet 00:00: daily. [place] [facility] predniSONE 2021-0 Yes 10mg Take 10 mg U nivers 10 mg 6-22 by mouth ity of tablet 00:00: daily. [place] [facility] predniSONE 2021-0 Yes 10mg Take 10 mg U nivers 10 mg 6-22 by mouth ity of tablet 00:00: daily. [address] predniSONE 2021-0 Yes 10mg Take 10 mg U nivers 10 mg 6-22 by mouth ity of tablet 00:00: daily. [place] [facility] predniSONE 2021-0 Yes 10mg Take 10 mg U nivers 10 mg 6-22 by mouth ity of tablet 00:00: daily. [place] [facility] predniSONE 2021-0 Yes 10mg Take 10 mg U nivers 10 mg 6-22 by mouth ity of tablet 00:00: daily. [place] [facility] predniSONE 2021-0 Yes 10mg Take 10 mg U nivers 10 mg 6-22 by mouth ity of tablet 00:00: daily. [address] predniSONE 2021-0 Yes 10mg Take 10 mg U nivers 10 mg 6-22 by mouth ity of tablet 00:00: daily. [address] predniSONE 2021-0 Yes 10mg Take 10 mg U nivers 10 mg 6-22 by mouth ity of tablet 00:00: daily. [address] predniSONE 2021-0 Yes 10mg Take 10 mg U nivers 10 mg 6-22 by mouth ity of tablet 00:00: daily. [address] predniSONE 2021-0 Yes 10mg Take 10 mg U nivers 10 mg 6-22 by mouth ity of tablet 00:00: daily. [address] predniSONE 2021-0 Yes 10mg Take 10 mg U nivers 10 mg 6-22 by mouth ity of tablet 00:00: daily. [place] [facility] predniSONE 2021-0 Yes 10mg Take 10 mg U nivers 10 mg 6-22 by mouth ity of tablet 00:00: daily. [place] [facility] predniSONE 2021-0 Yes 10mg Take 10 mg U nivers 10 mg 6-22 by mouth ity of tablet 00:00: daily. [place] [facility] predniSONE 2021-0 Yes 10mg Take 10 mg U nivers 10 mg 6-22 by mouth ity of tablet 00:00: daily. [place] [facility] predniSONE 2021-0 Yes 10mg Take 10 mg U nivers 10 mg 6-22 by mouth ity of tablet 00:00: daily. [place] [facility] predniSONE 2021-0 Yes 10mg Take 10 mg U nivers 10 mg 6-22 by mouth ity of tablet 00:00: daily. [place] [facility] predniSONE 2021-0 Yes 10mg Take 10 mg U nivers 10 mg 6-22 by mouth ity of tablet 00:00: daily. [place] [facility] predniSONE 2021-0 Yes 10mg Take 10 mg U nivers 10 mg 6-22 by mouth ity of tablet 00:00: daily. [place] [facility] predniSONE 2021-0 Yes 10mg Take 10 mg U nivers 10 mg 6-22 by mouth ity of tablet 00:00: daily. [place] [facility] predniSONE 2021-0 Yes 10mg Take 10 mg U nivers 10 mg 6-22 by mouth ity of tablet 00:00: daily. [place] [facility] predniSONE 2021-0 Yes 10mg Take 10 mg U nivers 10 mg 6-22 by mouth ity of tablet 00:00: daily. [place] [facility] predniSONE 2021-0 Yes 10mg Take 10 mg U nivers 10 mg 6-22 by mouth ity of tablet 00:00: daily. [address] predniSONE 2021-0 Yes 10mg Take 10 mg U nivers 10 mg 6-22 by mouth ity of tablet 00:00: daily. [address] predniSONE 2021-0 Yes 10mg Take 10 mg U nivers 10 mg 6-22 by mouth ity of tablet 00:00: daily. [address] predniSONE 2021-0 Yes 10mg Take 10 mg U nivers 10 mg 6-22 by mouth ity of tablet 00:00: daily. [place] 00 [facility] predniSONE 2021-0 Yes 10mg Take 10 mg U nivers 10 mg 6-22 by mouth ity of tablet 00:00: daily. [place] [facility] predniSONE 2021-0 Yes 10mg Take 10 mg U nivers 10 mg 6-22 by mouth ity of tablet 00:00: daily. [place] [facility] predniSONE 2021-0 Yes 10mg Take 10 mg U nivers 10 mg 6-22 by mouth ity of tablet 00:00: daily. [place] [facility] predniSONE 2021-0 Yes 10mg Take 10 mg U nivers 10 mg 6-22 by mouth ity of tablet 00:00: daily. [place] [facility] predniSONE 2021-0 Yes 10mg Take 10 mg U nivers 10 mg 6-22 by mouth ity of tablet 00:00: daily. [place] [facility] predniSONE 2021-0 Yes 10mg Take 10 mg U nivers 10 mg 6-22 by mouth ity of tablet 00:00: daily. [place] [facility] predniSONE 2021-0 Yes 10mg Take 10 mg U nivers 10 mg 6-22 by mouth ity of tablet 00:00: daily. [place] [facility] predniSONE 2021-0 Yes 10mg Take 10 mg U nivers 10 mg 6-22 by mouth ity of tablet 00:00: daily. [place] [facility] predniSONE 2021-0 Yes 10mg Take 10 mg U nivers 10 mg 6-22 by mouth ity of tablet 00:00: daily. [address] predniSONE 2021-0 Yes 10mg Take 10 mg U nivers 10 mg 6-22 by mouth ity of tablet 00:00: daily. [address] predniSONE 2021-0 Yes 10mg Take 10 mg U nivers 10 mg 6-22 by mouth ity of tablet 00:00: daily. [address] predniSONE 2021-0 Yes 10mg Take 10 mg U nivers 10 mg 6-22 by mouth ity of tablet 00:00: daily. [address] predniSONE 2021-0 Yes 10mg Take 10 mg U nivers 10 mg 6-22 by mouth ity of tablet 00:00: daily. [address] predniSONE 2021-0 Yes 10mg Take 10 mg U nivers 10 mg 6-22 by mouth ity of tablet 00:00: daily. [address] spironolact 2021-0 Yes 25mg Take 25 mg [facility] one 6-08 by mouth. [place] (ALDACTONE) 00:00: of 25 MG 00 Medicin tablet e spironolact 1-0 Yes 25mg Take 25 mg [facility] one 6-08 by mouth. [place] (ALDACTONE) 00:00: of 25 MG 00 Medicin tablet e spironolact 1-0 Yes 25mg Take 25 mg [place] one 6-08 by mouth. [place] (ALDACTONE) 00:00: of 25 MG 00 Medicin tablet e spironolact 1-0 Yes 25mg Take 25 mg [facility] one 25 mg 6-08 by mouth ity of tablet 00:00: daily. [address] Branch spironolact 2020-0 Yes 25mg Take 25 mg [facility] one 25 mg 6-08 by mouth ity of tablet 00:00: daily. [address] Branch spironolact 1-0 Yes 25mg Take 25 mg [facility] one 25 mg 6-08 by mouth ity of tablet 00:00: daily. [address] spironolact 2020-0 Yes 25mg Take 25 mg [facility] one 25 mg 6-08 by mouth ity of tablet 00:00: daily. [address] spironolact 2020-0 Yes 25mg Take 25 mg [facility] one 25 mg 6-08 by mouth ity of tablet 00:00: daily. [address] spironolact 1-0 Yes 25mg Take 25 mg [facility] one 25 mg 6-08 by mouth ity of tablet 00:00: daily. [address] spironolact 1-0 Yes 25mg Take 25 mg [facility] one 25 mg 6-08 by mouth ity of tablet 00:00: daily. [address] Branch spironolact 2021-0 Yes 25mg Take 25 mg [facility] one 25 mg 6-08 by mouth ity of tablet 00:00: daily. [address] spironolact 1-0 Yes 25mg Take 25 mg [facility] one 25 mg 6-08 by mouth ity of tablet 00:00: daily. [address] spironolact 2021-0 Yes 25mg Take 25 mg [facility] one 25 mg 6-08 by mouth ity of tablet 00:00: daily. [address] spironolact 2021-0 Yes 25mg Take 25 mg [facility] one 25 mg 6-08 by mouth ity of tablet 00:00: daily. [place] [facility] spironolact 2020-0 Yes 25mg Take 25 mg [facility] one 25 mg 6-08 by mouth ity of tablet 00:00: daily. [place] [facility] Branch spironolact 2020-0 Yes 25mg Take 25 mg [facility] one 25 mg 6-08 by mouth ity of tablet 00:00: daily. [place] [facility] spironolact 2020-0 Yes 25mg Take 25 mg [facility] one 25 mg 6-08 by mouth ity of tablet 00:00: daily. [place] [facility] spironolact 2020-0 Yes 25mg Take 25 mg [facility] one 25 mg 6-08 by mouth ity of tablet 00:00: daily. [place] [facility] spironolact 2020-0 Yes 25mg Take 25 mg [facility] one 25 mg 6-08 by mouth ity of tablet 00:00: daily. [place] [facility] spironolact 2020-0 Yes 25mg Take 25 mg [facility] one 25 mg 6-08 by mouth ity of tablet 00:00: daily. [place] [facility] spironolact 2020-0 Yes 25mg Take 25 mg [facility] one 25 mg 6-08 by mouth ity of tablet 00:00: daily. [place] [facility] spironolact 2020-0 Yes 25mg Take 25 mg [facility] one 25 mg 6-08 by mouth ity of tablet 00:00: daily. [place] [facility] spironolact 2020-0 Yes 25mg Take 25 mg [facility] one 25 mg 6-08 by mouth ity of tablet 00:00: daily. [place] [facility] spironolact 2020-0 Yes 25mg Take 25 mg [facility] one 25 mg 6-08 by mouth ity of tablet 00:00: daily. [place] [facility] spironolact 2020-0 Yes 25mg Take 25 mg [facility] one 25 mg 6-08 by mouth ity of tablet 00:00: daily. [place] [facility] spironolact 2020-0 Yes 25mg Take 25 mg [facility] one 25 mg 6-08 by mouth ity of tablet 00:00: daily. [place] [facility] spironolact 2020-0 Yes 25mg Take 25 mg [facility] one 25 mg 6-08 by mouth ity of tablet 00:00: daily. [place] [facility] spironolact 2021-0 Yes 25mg Take 25 mg [facility] one 25 mg 6-08 by mouth ity of tablet 00:00: daily. [place] [facility] Branch spironolact 2020-0 Yes 25mg Take 25 mg [facility] one 25 mg 6-08 by mouth ity of tablet 00:00: daily. [place] [facility] spironolact 2020-0 Yes 25mg Take 25 mg [facility] one 25 mg 6-08 by mouth ity of tablet 00:00: daily. [place] [facility] spironolact 202-0 Yes 25mg Take 25 mg [facility] one 25 mg 6-08 by mouth ity of tablet 00:00: daily. [place] [facility] spironolact 2020-0 Yes 25mg Take 25 mg [facility] one 25 mg 6-08 by mouth ity of tablet 00:00: daily. [place] [facility] spironolact 2020-0 Yes 25mg Take 25 mg [facility] one 25 mg 6-08 by mouth ity of tablet 00:00: daily. [place] [facility] spironolact 2020-0 Yes 25mg Take 25 mg [facility] one 25 mg 6-08 by mouth ity of tablet 00:00: daily. [place] [facility] spironolact 2020-0 Yes 25mg Take 25 mg [facility] one 25 mg 6-08 by mouth ity of tablet 00:00: daily. [place] [facility] spironolact 2020-0 Yes 25mg Take 25 mg [facility] one 25 mg 6-08 by mouth ity of tablet 00:00: daily. [place] [facility] spironolact 2020-0 Yes 25mg Take 25 mg [facility] one 25 mg 6-08 by mouth ity of tablet 00:00: daily. [place] [facility] spironolact 2020-0 Yes 25mg Take 25 mg [facility] one 25 mg 6-08 by mouth ity of tablet 00:00: daily. [place] [facility] spironolact 2020-0 Yes 25mg Take 25 mg [facility] one 25 mg 6-08 by mouth ity of tablet 00:00: daily. [place] [facility] spironolact 202-0 Yes 25mg Take 25 mg [facility] one 25 mg 6-08 by mouth ity of tablet 00:00: daily. [place] [facility] spironolact 2020-0 Yes 25mg Take 25 mg [facility] one 25 mg 6-08 by mouth ity of tablet 00:00: daily. [facility] spironolact 2020-0 Yes 25mg Take 25 mg [facility] one 25 mg 6-08 by mouth ity of tablet 00:00: daily. [facility] spironolact 2020-0 Yes 25mg Take 25 mg [facility] one 25 mg 6-08 by mouth ity of tablet 00:00: daily. [place] [facility] spironolact 2020-0 Yes 25mg Take 25 mg [facility] one 25 mg 6-08 by mouth ity of tablet 00:00: daily. [place] [facility] spironolact 2020-0 Yes 25mg Take 25 mg [facility] one 25 mg 6-08 by mouth ity of tablet 00:00: daily. [place] [facility] spironolact 2020-0 Yes 25mg Take 25 mg [facility] one 25 mg 6-08 by mouth ity of tablet 00:00: daily. [place] [facility] spironolact 2020-0 Yes 25mg Take 25 mg [facility] one 25 mg 6-08 by mouth ity of tablet 00:00: daily. [place] [facility] spironolact 2020-0 Yes 25mg Take 25 mg [facility] one 25 mg 6-08 by mouth ity of tablet 00:00: daily. [place] [facility] spironolact 2020-0 Yes 25mg Take 25 mg [facility] one 25 mg 6-08 by mouth ity of tablet 00:00: daily. [place] [facility] spironolact 2020-0 Yes 25mg Take 25 mg [facility] one 25 mg 6-08 by mouth ity of tablet 00:00: daily. [place] [facility] spironolact 2020-0 Yes 25mg Take 25 mg [facility] one 25 mg 6-08 by mouth ity of tablet 00:00: daily. [place] [facility] spironolact 2020-0 Yes 25mg Take 25 mg [facility] one 25 mg 6-08 by mouth ity of tablet 00:00: daily. [place] [facility] spironolact 2020-0 Yes 25mg Take 25 mg [facility] one 25 mg 6-08 by mouth ity of tablet 00:00: daily. [place] [facility] spironolact 2020-0 Yes 25mg Take 25 mg [facility] one 25 mg 6-08 by mouth ity of tablet 00:00: daily. [address] spironolact 2020-0 Yes 25mg Take 25 mg [facility] one 25 mg 6-08 by mouth ity of tablet 00:00: daily. [address] Neomycin-Po 2020-0 Yes 3[drp] Place 3 [facility] lymyxin-HC 4-14 Drops in Colle ge [id number] 00:00: ear(s). of SUSP 00 Medicin e Neomycin-Po 2020-0 Yes 3[drp] Place 3 [facility] lymyxin-HC 4-14 Drops in Colle ge [id number] 00:00: ear(s). of SUSP 00 Medicin e Neomycin-Po 2020-0 Yes 3[drp] Place 3 [facility] lymyxin-HC 4-14 Drops in Colle ge [id number] 00:00: ear(s). of SUSP 00 Medicin e neomycin-po 2020-0 Yes [id number] 3[drp] Place 3 [facility] lymyxin-hyd 4-14 Drops in ity of rocortisone 00:00: left ear 4 [place] 3.5-,000- 00 (four) Medica l 1 times Branch mg/mL-unit/ daily. mL-% otic susp neomycin-po 202-0 Yes [id number] 3[drp] Place 3 [facility] lymyxin-hyd 4-14 Drops in ity of rocortisone 00:00: left ear 4 [place] 3.5-,000- 00 (four) Medica l 1 times Branch mg/mL-unit/ daily. mL-% otic susp neomycin-po 2021-0 Yes [id number] 3[drp] Place 3 [facility] lymyxin-hyd 4-14 Drops in ity of rocortisone 00:00: left ear 4 [place] 3.5-10,000- 00 (four) Medica l 1 times Branch mg/mL-unit/ daily. mL-% otic susp neomycin-po 2021-0 Yes [id number] 3[drp] Place 3 [facility] lymyxin-hyd 4-14 Drops in ity of rocortisone 00:00: left ear 4 [place] 3.5-10,000- 00 (four) Medica l 1 times Branch mg/mL-unit/ daily. mL-% otic susp neomycin-po 2021-0 Yes [id number] 3[drp] Place 3 [facility] lymyxin-hyd 4-14 Drops in ity of rocortisone 00:00: left ear 4 [place] 3.5-10,000- 00 (four) Medica l 1 times Branch mg/mL-unit/ daily. mL-% otic susp neomycin-po 2021-0 Yes [id number] 3[drp] Place 3 [facility] lymyxin-hyd 4-14 Drops in ity of rocortisone 00:00: left ear 4 [place] 3.5-10,000- 00 (four) Medica l 1 times Branch mg/mL-unit/ daily. mL-% otic susp neomycin-po 2021-0 Yes [id number] 3[drp] Place 3 [facility] lymyxin-hyd 4-14 Drops in ity of rocortisone 00:00: left ear 4 [place] 3.5-10,000- 00 (four) Medica l 1 times Branch mg/mL-unit/ daily. mL-% otic susp neomycin-po 2021-0 Yes [id number] 3[drp] Place 3 [facility] lymyxin-hyd 4-14 Drops in ity of rocortisone 00:00: left ear 4 [place] 3.5-10,000- 00 (four) Medica l 1 times Branch mg/mL-unit/ daily. mL-% otic susp neomycin-po 2021-0 Yes [id number] 3[drp] Place 3 [facility] lymyxin-hyd 4-14 Drops in ity of rocortisone 00:00: left ear 4 [place] 3.5-10,000- 00 (four) Medica l 1 times Branch mg/mL-unit/ daily. mL-% otic susp neomycin-po 2021-0 Yes [id number] 3[drp] Place 3 [facility] lymyxin-hyd 4-14 Drops in ity of rocortisone 00:00: left ear 4 [place] 3.5-10,000- 00 (four) Medica l 1 times Branch mg/mL-unit/ daily. mL-% otic susp neomycin-po 2021-0 Yes [id number] 3[drp] Place 3 [facility] lymyxin-hyd 4-14 Drops in ity of rocortisone 00:00: left ear 4 [place] 3.5-10,000- 00 (four) Medica l 1 times Branch mg/mL-unit/ daily. mL-% otic susp neomycin-po 2021-0 Yes [id number] 3[drp] Place 3 [facility] lymyxin-hyd 4-14 Drops in ity of rocortisone 00:00: left ear 4 [place] 3.5-10,000- 00 (four) Medica l 1 times Branch mg/mL-unit/ daily. mL-% otic susp neomycin-po 2021-0 Yes [id number] 3[drp] Place 3 [facility] lymyxin-hyd 4-14 Drops in ity of rocortisone 00:00: left ear 4 [place] 3.5-10000- 00 (four) Medica l 1 times Branch mg/mL-unit/ daily. mL-% otic susp neomycin-po 2021-0 Yes [id number] 3[drp] Place 3 [facility] lymyxin-hyd 4-14 Drops in ity of rocortisone 00:00: left ear 4 [place] 3.5-000- (four) Medica l 1 times Branch mg/mL-unit/ daily. mL-% otic susp neomycin-po 2021-0 Yes [id number] 3[drp] Place 3 [facility] lymyxin-hyd 4-14 Drops in ity of rocortisone 00:00: left ear 4 [place] 3.5- (four) Medica l 1 times Branch mg/mL-unit/ daily. mL-% otic susp neomycin-po 2021-0 Yes [id number] 3[drp] Place 3 [facility] lymyxin-hyd 4-14 Drops in ity of rocortisone 00:00: left ear 4 [place] 3.5- (four) Medica l 1 times Branch mg/mL-unit/ daily. mL-% otic susp neomycin-po 2021-0 Yes [id number] 3[drp] Place 3 [facility] lymyxin-hyd 4-14 Drops in ity of rocortisone 00:00: left ear 4 [place] 3.5- (four) Medica l 1 times Branch mg/mL-unit/ daily. mL-% otic susp neomycin-po 2021-0 Yes [id number] 3[drp] Place 3 [facility] lymyxin-hyd 4-14 Drops in ity of rocortisone 00:00: left ear 4 [place] 3.5-10,000- 00 (four) Medica l 1 times Branch mg/mL-unit/ daily. mL-% otic susp neomycin-po 2021-0 Yes [id number] 3[drp] Place 3 [facility] lymyxin-hyd 4-14 Drops in ity of rocortisone 00:00: left ear 4 [place] 3.5-000 (four) Medica l 1 times Branch mg/mL-unit/ daily. mL-% otic susp neomycin-po 2021-0 Yes [id number] 3[drp] Place 3 [facility] lymyxin-hyd 4-14 Drops in ity of rocortisone 00:00: left ear 4 [place] 3.5- (four) Medica l 1 times Branch mg/mL-unit/ daily. mL-% otic susp neomycin-po 2021-0 Yes [id number] 3[drp] Place 3 [facility] lymyxin-hyd 4-14 Drops in ity of rocortisone 00:00: left ear 4 [place] 3.5- (four) Medica l 1 times Branch mg/mL-unit/ daily. mL-% otic susp neomycin-po 2021-0 Yes [id number] 3[drp] Place 3 [facility] lymyxin-hyd 4-14 Drops in ity of rocortisone 00:00: left ear 4 [place] 3.5- (four) Medica l 1 times Branch mg/mL-unit/ daily. mL-% otic susp neomycin-po 2021-0 Yes [id number] 3[drp] Place 3 [facility] lymyxin-hyd 4-14 Drops in ity of rocortisone 00:00: left ear 4 [place] 3.5- (four) Medica l 1 times Branch mg/mL-unit/ daily. mL-% otic susp neomycin-po 2021-0 Yes [id number] 3[drp] Place 3 [facility] lymyxin-hyd 4-14 Drops in ity of rocortisone 00:00: left ear 4 [place] 3.5-000 (four) Medica l 1 times Branch mg/mL-unit/ daily. mL-% otic susp neomycin-po 2021-0 Yes [id number] 3[drp] Place 3 [facility] lymyxin-hyd 4-14 Drops in ity of rocortisone 00:00: left ear 4 [place] 3.5-10,000- 00 (four) Medica l 1 times Branch mg/mL-unit/ daily. mL-% otic susp neomycin-po 2021-0 Yes [id number] 3[drp] Place 3 [facility] lymyxin-hyd 4-14 Drops in ity of rocortisone 00:00: left ear 4 [place] 3.5-10,000- 00 (four) Medica l 1 times Branch mg/mL-unit/ daily. mL-% otic susp neomycin-po 2021-0 Yes [id number] 3[drp] Place 3 [facility] lymyxin-hyd 4-14 Drops in ity of rocortisone 00:00: left ear 4 [place] 3.5-10,000- 00 (four) Medica l 1 times Branch mg/mL-unit/ daily. mL-% otic susp neomycin-po 2021-0 Yes [id number] 3[drp] Place 3 [facility] lymyxin-hyd 4-14 Drops in ity of rocortisone 00:00: left ear 4 [place] 3.5-10,000- 00 (four) Medica l 1 times Branch mg/mL-unit/ daily. mL-% otic susp neomycin-po 2021-0 Yes [id number] 3[drp] Place 3 [facility] lymyxin-hyd 4-14 Drops in ity of rocortisone 00:00: left ear 4 [place] 3.5-10,000- 00 (four) Medica l 1 times Branch mg/mL-unit/ daily. mL-% otic susp neomycin-po 2021-0 Yes [id number] 3[drp] Place 3 [facility] lymyxin-hyd 4-14 Drops in ity of rocortisone 00:00: left ear 4 [place] 3.5-10,000- 00 (four) Medica l 1 times Branch mg/mL-unit/ daily. mL-% otic susp neomycin-po 2021-0 Yes [id number] 3[drp] Place 3 [facility] lymyxin-hyd 4-14 Drops in ity of rocortisone 00:00: left ear 4 [place] 3.5-10,000- 00 (four) Medica l 1 times Branch mg/mL-unit/ daily. mL-% otic susp neomycin-po 2021-0 Yes [id number] 3[drp] Place 3 [facility] lymyxin-hyd 4-14 Drops in ity of rocortisone 00:00: left ear 4 [place] 3.5-,000- 00 (four) Medica l 1 times Branch mg/mL-unit/ daily. mL-% otic susp neomycin-po 2021-0 Yes [id number] 3[drp] Place 3 [facility] lymyxin-hyd 4-14 Drops in ity of rocortisone 00:00: left ear 4 [place] 3.5-10,000- 00 (four) Medica l 1 times Branch mg/mL-unit/ daily. mL-% otic susp neomycin-po 2021-0 Yes [id number] 3[drp] Place 3 [facility] lymyxin-hyd 4-14 Drops in ity of rocortisone 00:00: left ear 4 [place] 3.5-000- 00 (four) Medica l 1 times Branch mg/mL-unit/ daily. mL-% otic susp neomycin-po 2021-0 Yes [id number] 3[drp] Place 3 [facility] lymyxin-hyd 4-14 Drops in ity of rocortisone 00:00: left ear 4 [place] 3.5-10,000- 00 (four) Medica l 1 times Branch mg/mL-unit/ daily. mL-% otic susp neomycin-po 2021-0 Yes [id number] 3[drp] Place 3 [facility] lymyxin-hyd 4-14 Drops in ity of rocortisone 00:00: left ear 4 [place] 3.5-10,000- 00 (four) Medica l 1 times Branch mg/mL-unit/ daily. mL-% otic susp neomycin-po 2021-0 Yes [id number] 3[drp] Place 3 [facility] lymyxin-hyd 4-14 Drops in ity of rocortisone 00:00: left ear 4 [place] 3.5-10,000- 00 (four) Medica l 1 times Branch mg/mL-unit/ daily. mL-% otic susp neomycin-po 2021-0 2022- No [id number] 3[drp] Place 3 [facility] lymyxin-hyd 4-14 12-21 Drops in ity of rocortisone 00:00: 00:00 left ear 4 [place] 3.5-10,000- 00 :00 (four) Medica l 1 times Branch mg/mL-unit/ daily. mL-% otic susp neomycin-po 2021- No [id number] 3[drp] Place 3 [facility] lymyxin-hyd 4-14 12-21 [...] mcg DsDv 00 EVERY DAY [facility] [place] TRELEGY 2020-1 Yes INHALE 1 Univer [facility] ELLIPTA 2-24 PUFF BY ity of 100-62.5-25 00:00: MOUTH [place] mcg DsDv 00 EVERY DAY [facility] [place] TRELEGY 2020-1 Yes INHALE 1 Univer s ELLIPTA 2-24 PUFF BY ity of 100-62.5-25 00:00: MOUTH [place] mcg DsDv 00 EVERY DAY [facility] [place] TRELEGY 2020- Yes INHALE 1 Univer s ELLIPTA 2-24 PUFF BY ity of 100-62.5-25 00:00: MOUTH [place] mcg DsDv 00 EVERY DAY [facility] [place] TRELEGY 2020- Yes INHALE 1 Univer s ELLIPTA 2-24 PUFF BY ity of 100-62.5-25 00:00: MOUTH [place] mcg DsDv 00 EVERY DAY [facility] TRELEGY 2020- Yes INHALE 1 Univer s ELLIPTA 2-24 PUFF BY ity of 100-62.5-25 00:00: MOUTH [place] mcg DsDv 00 EVERY DAY [facility] [place] TRELEGY 2020- Yes INHALE 1 Univer s ELLIPTA 2-24 PUFF BY ity of 100-62.5-25 00:00: MOUTH [place] mcg DsDv 00 EVERY DAY [facility] [place] TRELEGY 2020- Yes INHALE 1 Univer s ELLIPTA 2-24 PUFF BY ity of 100-62.5-25 00:00: MOUTH [place] mcg DsDv 00 EVERY DAY [facility] [place] TRELEGY 2020-1 Yes INHALE 1 Univer s ELLIPTA 2-24 PUFF BY ity of 100-62.5-25 00:00: MOUTH [place] mcg DsDv 00 EVERY DAY [facility] [place] TRELEGY 2020-1 Yes INHALE 1 Univer s ELLIPTA 2-24 PUFF BY ity of 100-62.5-25 00:00: MOUTH [place] mcg DsDv 00 EVERY DAY [facility] [place] TRELEGY 2020-1 Yes INHALE 1 Univer s ELLIPTA 2-24 PUFF BY ity of 100-62.5-25 00:00: MOUTH [place] mcg DsDv 00 EVERY DAY [facility] [place] TRELEGY 2020-1 Yes INHALE 1 Univer s ELLIPTA 2-24 PUFF BY ity of 100-62.5-25 00:00: MOUTH [place] mcg DsDv 00 EVERY DAY [facility] [place] TRELEGY 2020-1 Yes INHALE 1 Univer s ELLIPTA 2-24 PUFF BY ity of 100-62.5-25 00:00: MOUTH [place] mcg DsDv 00 EVERY DAY [facility] [place] TRELEGY 2020- Yes INHALE 1 Univer s ELLIPTA 2-24 PUFF BY ity of 100-62.5-25 00:00: MOUTH [place] mcg DsDv 00 EVERY DAY [facility] [place] TRELEGY 2020- Yes INHALE 1 Univer s ELLIPTA 2-24 PUFF BY ity of 100-62.5-25 00:00: MOUTH [place] mcg DsDv 00 EVERY DAY [facility] [place] TRELEGY 2020- Yes INHALE 1 Univer s ELLIPTA 2-24 PUFF BY ity of 100-62.5-25 00:00: MOUTH [place] mcg DsDv 00 EVERY DAY [facility] [place] TRELEGY 2020- Yes INHALE 1 Univer s ELLIPTA 2-24 PUFF BY ity of 100-62.5-25 00:00: MOUTH [place] mcg DsDv 00 EVERY DAY [facility] [place] TRELEGY 2020- Yes INHALE 1 Univer s ELLIPTA 2-24 PUFF BY ity of 100-62.5-25 00:00: MOUTH [place] mcg DsDv 00 EVERY DAY [facility] [place] TRELEGY 2020- Yes INHALE 1 Univer s ELLIPTA 2-24 PUFF BY ity of 100-62.5-25 00:00: MOUTH [place] mcg DsDv 00 EVERY DAY [facility] [place] TRELEGY 2020-1 Yes INHALE 1 Univer [facility] ELLIPTA 2-24 PUFF BY ity of 100-62.5-25 00:00: MOUTH [place] mcg DsDv 00 EVERY DAY [facility]ica [facility] TRELEGY 2020-1 Yes INHALE 1 Univer [facility] ELLIPTA 2-24 PUFF BY ity of 100-62.5-25 00:00: MOUTH [place] mcg DsDv 00 EVERY DAY [facility] [place] TRELEGY 2020-1 Yes INHALE 1 Univer s [...] by mouth ity of 00:00: at bedtime [place] 00 as needed. Medical Branch zolpidem 10 2019-11 Yes 10mg Take 10 mg [facility] mg tablet 2-14 by mouth ity of 00:00: at bedtime [place] 00 as needed. Medical Branch zolpidem 10 2019-11 Yes 10mg Take 10 mg [facility] mg tablet 2-14 by mouth ity of 00:00: at bedtime [place] 00 as needed. Medical Branch zolpidem 10 2019-11 Yes 10mg Take 10 mg [facility] mg tablet 2-14 by mouth ity of 00:00: at bedtime [place] 00 as needed. Medical Branch zolpidem 10 2019-11 Yes 10mg Take 10 mg [facility] mg tablet 2-14 by mouth ity of 00:00: at bedtime [place] 00 as needed. Medical Branch zolpidem 10 2019-11 Yes 10mg Take 10 mg [facility] mg tablet 2-14 by mouth ity of 00:00: at bedtime [place] 00 as needed. Medical Branch zolpidem 10 2019-11 Yes 10mg Take 10 mg [facility] mg tablet 2-14 by mouth ity of 00:00: at bedtime [place] 00 as needed. Medical Branch zolpidem 10 [...] 00 AND THEN Q Medical 8 [facility] Branch ABDOMINAL PAIN. MOTEGRITY 2020- Yes TK 1 T PO Uni vers tablet 1-12 D ity of 00:00: [place] [facility] Branch MOTEGRITY 2020- Yes TK 1 T PO Uni vers tablet 1-12 D ity of 00:00: [place] [facility] Branch MOTEGRITY 2020- Yes TK 1 T PO Uni vers tablet 1-12 D ity of 00:00: [place] [facility] MOTEGRITY 2020- Yes TK 1 T PO Uni vers tablet 1-12 D ity of 00:00: [place] [facility] Branch MOTEGRITY 2019- Yes TK 1 T PO Uni vers tablet 1-12 D ity of 00:00: [place] [facility] Branch MOTEGRITY 2020- Yes TK 1 T PO Uni vers tablet 1-12 D ity of 00:00: [place] [facility] Branch MOTEGRITY 2020- Yes TK 1 T PO Uni vers tablet 1-12 D ity of 00:00: [place] [facility] MOTEGRITY 2020- Yes TK 1 T PO Uni vers tablet 1-12 D ity of 00:00: [place] [facility] MOTEGRITY 2020- Yes TK 1 T PO Uni vers tablet 1-12 D ity of 00:00: [place] [facility] MOTEGRITY 2020- Yes TK 1 T PO Uni vers tablet 1-12 D ity of 00:00: [place] [facility] MOTEGRITY 2020- Yes TK 1 T PO Uni vers tablet 1-12 D ity of 00:00: [place] [facility] MOTEGRITY 2020- Yes TK 1 T PO Uni vers tablet 1-12 D ity of 00:00: [place] 00 Medical Branch MOTEGRITY 2020- Yes TK 1 T PO Uni vers tablet 1-12 D ity of 00:00: [place] 00 [facility] MOTEGRITY 2020- Yes TK 1 T PO Uni vers tablet 1-12 D ity of 00:00: [place] [facility] Branch MOTEGRITY 2020- Yes TK 1 T PO Uni vers tablet 1-12 D ity of 00:00: [place] 00 [facility] Branch MOTEGRITY 2020- Yes TK 1 T PO Uni vers tablet 1-12 D ity of 00:00: [place] 00 [facility] MOTEGRITY 2020- Yes TK 1 T PO Uni vers tablet 1-12 D ity of 00:00: [place] 00 [facility] MOTEGRITY 2020- Yes TK 1 T PO Uni vers tablet 1-12 D ity of 00:00: [place] [facility] MOTEGRITY 2020- Yes TK 1 T PO Uni vers tablet 1-12 D ity of 00:00: [place] [facility] MOTEGRITY 2020- Yes TK 1 T PO Uni vers tablet 1-12 D ity of 00:00: [place] [facility] MOTEGRITY 2019- Yes TK 1 T PO Uni vers tablet 1-12 D ity of 00:00: [place] [facility] MOTEGRITY 2019- Yes TK 1 T PO Uni vers tablet 1-12 D ity of 00:00: [place] [facility] MOTRITY 2019- Yes TK 1 T PO Uni vers tablet 1-12 D ity of 00:00: [place] [facility] MOTEGRITY 2020- Yes TK 1 T PO Uni vers tablet 1-12 D ity of 00:00: [place] [facility] MOTEGRITY 2020- Yes TK 1 T PO Uni vers tablet 1-12 D ity of 00:00: [place] [facility] MOTEGRITY 2020- Yes TK 1 T PO Uni vers tablet 1-12 D ity of 00:00: [place] [facility] MOTEGRITY 2020- Yes TK 1 T PO Uni vers tablet 1-12 D ity of 00:00: [place] [facility] MOTEGRITY 2020- Yes TK 1 T PO Uni vers tablet 1-12 D ity of 00:00: [place] [facility] MOTEGRITY 2020- Yes TK 1 T PO Uni vers tablet 1-12 D ity of 00:00: [place] 00 [facility] MOTEGRITY 2020- Yes TK 1 T PO Uni vers tablet 1-12 D ity of 00:00: [place] 00 [facility] MOTEGRITY 2020- Yes TK 1 T PO Uni vers tablet 1-12 D ity of 00:00: [place] 00 [facility] MOTEGRITY 2020- Yes TK 1 T PO Uni vers tablet 1-12 D ity of 00:00: [place] [facility] MOTEGRITY 2020- Yes TK 1 T PO Uni vers tablet 1-12 D ity of 00:00: [place] 00 [facility] MOTEGRITY 2020- Yes TK 1 T PO Uni vers tablet 1-12 D ity of 00:00: [place] [facility] MOTEGRITY 2020- Yes TK 1 T PO Uni vers tablet 1-12 D ity of 00:00: [place] [facility] MOTEGRITY 2020- Yes TK 1 T PO Uni vers tablet 1-12 D ity of 00:00: [place] [facility] MOTEGRITY 2020- Yes TK 1 T PO Uni vers tablet 1-12 D ity of 00:00: [place] [facility] MOTEGRITY 2020- Yes TK 1 T PO Uni vers tablet 1-12 D ity of 00:00: [place] [facility] MOTEGRITY 2020- Yes TK 1 T PO Uni vers tablet 1-12 D ity of 00:00: [place] [facility] MOTEGRITY 2020- Yes TK 1 T PO Uni vers tablet 1-12 D ity of 00:00: [place] [facility] MOTEGRITY 2020- Yes TK 1 T PO Uni vers tablet 1-12 D ity of 00:00: [place] [facility] MOTEGRITY 2020- Yes TK 1 T PO Uni vers tablet 1-12 D ity of 00:00: [place] [facility] Branch MOTEGRITY 2020- Yes TK 1 T PO Uni vers tablet 1-12 D ity of 00:00: [place] [facility] MOTEGRITY 2020- Yes TK 1 T PO Uni vers tablet 1-12 D ity of 00:00: [place] [facility] MOTEGRITY 2020- Yes TK 1 T PO Uni vers tablet 1-12 D ity of 00:00: [place] [facility] MOTEGRITY 2020- Yes TK 1 T PO Uni vers tablet 1-12 D ity of 00:00: [place] 00 [facility] MOTEGRITY 2020- Yes TK 1 T PO Uni vers tablet 1-12 D ity of 00:00: [place] 00 [facility] MOTEGRITY 2020- Yes TK 1 T PO Uni vers tablet 1-12 D ity of 00:00: [place] 00 [facility] MOTEGRITY 2020- Yes TK 1 T PO Uni vers tablet 1-12 D ity of 00:00: [place] [facility] MOTEGRITY 2020-1 Yes TK 1 T PO [...] of 00:00: [place] 00 Medical Branch ondansetron 2020- Yes as needed. [facility] 4 mg tablet 1-04 ity of 00:00: Medical Branch ondansetron 2020- Yes as needed. [facility] 4 mg tablet 1-04 ity of 00:00: Medical Branch ondansetron 2020- Yes as needed. [facility] 4 mg tablet 1-04 ity of 00:00: Medical Branch diclofenac 2020- Yes [id number] 75mg Take 1 [facility] 75 mg EC 0-08 tablet by ity of tablet 00:00: mouth 2 (two) Medical times Branch daily with meals. diclofenac 2020- Yes [id number] 75mg Take 1 [facility] 75 mg EC 0-08 tablet by ity of tablet 00:00: mouth (two) Medical times Branch daily with meals. diclofenac 2019- Yes [id number] 75mg Take 1 [facility] 75 mg EC 0-08 tablet by ity of tablet 00:00: mouth (two) Medical times Branch daily with meals. diclofenac 2019- Yes [id number] 75mg Take 1 [facility] 75 mg EC 0-08 tablet by ity of tablet 00:00: mouth (two) Medical times Branch daily with meals. diclofenac 2019- Yes [id number] 75mg Take 1 [facility] 75 mg EC 0-08 tablet by ity of tablet 00:00: mouth [place] (two) Medical times Branch daily with meals. diclofenac 2019- Yes [id number] 75mg Take 1 [facility] 75 mg EC 0-08 tablet by ity of tablet 00:00: mouth [place] (two) Medical times Branch daily with meals. diclofenac 2019- Yes [id number] 75mg Take 1 [facility] 75 mg EC 0-08 tablet by ity of tablet 00:00: mouth (two) Medical times Branch daily with meals. diclofenac 2020- Yes [id number] 75mg Take 1 [facility] 75 mg EC 0-08 tablet by ity of tablet 00:00: mouth 2 [place] (two) Medical times Branch daily with meals. diclofenac 2020- Yes [id number] 75mg Take 1 [facility] 75 mg EC 0-08 tablet by ity of tablet 00:00: mouth 2 [place] (two) Medical times Branch daily with meals. diclofenac 2020- Yes [id number] 75mg Take 1 [facility] 75 mg EC 0-08 tablet by ity of tablet 00:00: mouth (two) Medical times Branch daily with meals. diclofenac 2020- Yes [id number] 75mg Take 1 [facility] 75 mg EC 0-08 tablet by ity of tablet 00:00: mouth (two) Medical times Branch daily with meals. diclofenac 2020-1 Yes [id number] 75mg Take 1 [facility] 75 mg EC 0-08 tablet by ity of tablet 00:00: mouth (two) Medical times Branch daily with meals. diclofenac 2020-1 Yes [id number] 75mg Take 1 [facility] 75 mg EC 0-08 tablet by ity of tablet 00:00: mouth (two) Medical times Branch daily with meals. diclofenac 2020-1 Yes [id number] 75mg Take 1 [facility] 75 mg EC 0-08 tablet by ity of tablet 00:00: mouth (two) Medical times Branch daily with meals. diclofenac 2020- Yes [id number] 75mg Take 1 [facility] 75 mg EC 0-08 tablet by ity of tablet 00:00: mouth (two) Medical times Branch daily with meals. diclofenac 2020-1 Yes [id number] 75mg Take 1 [facility] 75 mg EC 0-08 tablet by ity of tablet 00:00: mouth (two) Medical times Branch daily with meals. diclofenac 2020-1 Yes [id number] 75mg Take 1 [facility] 75 mg EC 0-08 tablet by ity of tablet 00:00: mouth (two) Medical times Branch daily with meals. diclofenac 2020-1 Yes [id number] 75mg Take 1 [facility] 75 mg EC 0-08 tablet by ity of tablet 00:00: mouth (two) Medical times Branch daily with meals. diclofenac 2020-1 Yes [id number] 75mg Take 1 [facility] 75 mg EC 0-08 tablet by ity of tablet 00:00: mouth (two) Medical times Branch daily with meals. diclofenac 2020-1 Yes [id number] 75mg Take 1 [facility] 75 mg EC 0-08 tablet by ity of tablet 00:00: mouth (two) Medical times Branch daily with meals. diclofenac 2020-1 Yes [id number] 75mg Take 1 [facility] 75 mg EC 0-08 tablet by ity of tablet 00:00: mouth (two) Medical times Branch daily with meals. diclofenac 2020-1 Yes [id number] 75mg Take 1 [facility] 75 mg EC 0-08 tablet by ity of tablet 00:00: mouth 2 00 (two) Medical times Branch daily with meals. diclofenac 2019-11- No [id number] 75mg Take 1 [facility] 75 mg EC 0-08 10-25 tablet by ity o f tablet 00:00: 00:00 mouth 2 [place] 00 :00 (two) Medical times Branch daily with meals. diclofenac 2019-11- No [id number] 75mg Take 1 [facility] 75 mg EC 0-08 10-25 tablet by ity o f tablet 00:00: 00:00 mouth 2 [place] 00 :00 (two) Medical times Branch daily with meals. CLONIDINE 2020-0 Yes [id number] TAKE 1 Un ally 0.2 mg 8-06 TABLET BY ity of tablet 00:00: MOUTH 00 THREE Medical TIMES Branch DAILY CLONIDINE 2020-0 Yes [id number] TAKE 1 [facility] 0.2 mg 8-06 TABLET BY ity of tablet 00:00: MOUTH 00 THREE Medical TIMES Branch DAILY CLONIDINE 2020-0 Yes [id number] TAKE 1 [facility] 0.2 mg 8-06 TABLET BY ity of tablet 00:00: MOUTH 00 THREE Medical TIMES Branch DAILY CLONIDINE 2020-0 Yes [id number] TAKE 1 [facility] 0.2 mg 8-06 TABLET BY ity of tablet 00:00: MOUTH 00 THREE Medical TIMES Branch DAILY CLONIDINE 2020-0 Yes [id number] TAKE 1 [facility] 0.2 mg 8-06 TABLET BY ity of tablet 00:00: MOUTH 00 THREE Medical TIMES Branch DAILY CLONIDINE 2020-0 Yes [id number] TAKE 1 [facility] 0.2 mg 8-06 TABLET BY ity of tablet 00:00: MOUTH 00 THREE Medical TIMES Branch DAILY CLONIDINE 2020-0 Yes [id number] TAKE 1 [facility] 0.2 mg 8-06 TABLET BY ity of tablet 00:00: MOUTH 00 THREE Medical TIMES Branch DAILY CLONIDINE 2020-0 Yes [id number] TAKE 1 [facility] 0.2 mg 8-06 TABLET BY ity of tablet 00:00: MOUTH 00 THREE Medical TIMES Branch DAILY CLONIDINE 2020-0 Yes [id number] TAKE 1 [facility] 0.2 mg 8-06 TABLET BY ity of tablet 00:00: MOUTH 00 THREE Medical TIMES Branch DAILY CLONIDINE 2020-0 Yes [id number] TAKE 1 [facility] 0.2 mg 8-06 TABLET BY [facility] tablet 00:00: MOUTH THREE Medical TIMES Branch DAILY CLONIDINE 2020-0 Yes [id number] TAKE 1 [facility] 0.2 mg 8-06 TABLET BY [facility] of tablet 00:00: MOUTH THREE Medical TIMES Branch DAILY CLONIDINE 2020-0 Yes [id number] TAKE 1 [facility] 0.2 mg 8-06 TABLET BY [facility] of tablet 00:00: THREE Medical TIMES Branch DAILY CLONIDINE 2020-0 Yes [id number] TAKE 1 [facility] 0.2 mg 8-06 TABLET BY [facility] of tablet 00:00: MOUTH THREE Medical TIMES Branch DAILY CLONIDINE 2020-0 Yes [id number] TAKE 1 [facility] 0.2 mg 8-06 TABLET BY [facility] of tablet 00:00: THREE Medical TIMES Branch DAILY CLONIDINE 2020-0 Yes [id number] TAKE 1 [facility] 0.2 mg 8-06 TABLET BY [facility] of tablet 00:00: THREE Medical TIMES Branch DAILY CLONIDINE 2020-0 Yes [id number] TAKE 1 [facility] 0.2 mg 8-06 TABLET BY [facility] of tablet 00:00: MOUTH THREE Medical TIMES Branch DAILY CLONIDINE 2020-0 Yes [id number] TAKE 1 [facility] 0.2 mg 8-06 TABLET BY [facility] of tablet 00:00: THREE Medical TIMES Branch DAILY CLONIDINE 2020-0 Yes [id number] TAKE 1 [facility] 0.2 mg 8-06 TABLET BY [facility] of tablet 00:00: THREE Medical TIMES Branch DAILY CLONIDINE 2020-0 Yes [id number] TAKE 1 [facility] 0.2 mg 8-06 TABLET BY [facility] of tablet 00:00: THREE Medical TIMES Branch DAILY CLONIDINE 2020-0 Yes [id number] TAKE 1 [facility] 0.2 mg 8-06 TABLET BY [facility] of tablet 00:00: MOUTH THREE Medical TIMES Branch DAILY CLONIDINE 2020-0 Yes [id number] TAKE 1 [facility] 0.2 mg 8-06 TABLET BY [facility] of tablet 00:00: THREE Medical TIMES Branch DAILY CLONIDINE 2020-0 Yes [id number] TAKE 1 [facility] 0.2 mg 8-06 TABLET BY [facility] of tablet 00:00: THREE Medical TIMES Branch DAILY CLONIDINE 2020-0 Yes [id number] TAKE 1 [facility] 0.2 mg 8-06 TABLET BY [facility] of tablet 00:00: MOUTH 00 THREE Medical TIMES Branch DAILY CLONIDINE 2020-0 Yes [id number] TAKE 1 [facility] 0.2 mg 8-06 TABLET BY [facility] of tablet 00:00: MOUTH 00 THREE Medical TIMES Branch DAILY CLONIDINE 2020-0 Yes [id number] TAKE 1 [facility] 0.2 mg 8-06 TABLET BY [facility] of tablet 00:00: MOUTH 00 THREE Medical TIMES Branch DAILY CLONIDINE 2020-0 Yes [id number] TAKE 1 [facility] 0.2 mg 8-06 TABLET BY [facility] of tablet 00:00: MOUTH 00 THREE Medical TIMES Branch DAILY CLONIDINE 2020-0 Yes [id number] TAKE 1 [facility] 0.2 mg 8-06 TABLET BY [facility] of tablet 00:00: MOUTH THREE Medical TIMES Branch DAILY CLONIDINE 2020-0 Yes [id number] TAKE 1 [facility] 0.2 mg 8-06 TABLET BY [facility] of tablet 00:00: MOUTH THREE Medical TIMES Branch DAILY CLONIDINE 2020-0 Yes [id number] TAKE 1 [facility] 0.2 mg 8-06 TABLET BY [facility] of tablet 00:00: MOUTH THREE Medical TIMES Branch DAILY CLONIDINE 2020-0 Yes [id number] TAKE 1 [facility] 0.2 mg 8-06 TABLET BY [facility] of tablet 00:00: MOUTH THREE Medical TIMES Branch DAILY CLONIDINE 2020-0 Yes [id number] TAKE 1 [facility] 0.2 mg 8-06 TABLET BY [facility] of tablet 00:00: MOUTH THREE Medical TIMES Branch DAILY CLONIDINE 2020-0 Yes [id number] TAKE 1 [facility] 0.2 mg 8-06 TABLET BY [facility] of tablet 00:00: MOUTH 00 THREE Medical TIMES Branch DAILY CLONIDINE 2020-0 Yes [id number] TAKE 1 [facility] 0.2 mg 8-06 TABLET BY [facility] of tablet 00:00: MOUTH 00 THREE Medical TIMES Branch DAILY CLONIDINE 2020-0 2021- No [id number] TAKE 1 [facility]ivers 0.2 mg 8-06 11-21 TABLET BY it[facility] of tablet 00:00: 00:00 MOUTH [place] 00 :00 THREE Medical TIMES Branch DAILY CLONIDINE 2020-0 2021- No [id number] TAKE 1 [facility] nivers 0.2 mg 8-06 [...] No TK 1 T PO [facility] azole-trime -06 01- BID [facility] of thoprim 00:00: 00:00 [place] 800-160 mg 00 :00 Medical per tablet Branch AMITIZA 24 2020-0 Yes TK 1 C PO [facility] ally mcg capsule 05-06 BID ity of 00:00: [place] 00 Medical Branch AMITIZA 24 2020-0 Yes TK 1 C PO Un ally mcg capsule 05-06 BID ity of 00:00: [place] 00 Medical Branch AMITIZA 24 2020-0 Yes TK 1 C PO [facility] mcg capsule - BID ity of 00:00: [place] 00 Medical Branch AMITIZA 24 2020-0 Yes TK 1 C PO Un l[facility] mcg capsule - BID ity of 00:00: [place] 00 Medical Branch AMITIZA 24 2020-0 Yes TK 1 C PO [facility] mcg capsule - BID ity of 00:00: [place] 00 Medical Branch AMITIZA 24 2020-0 Yes TK 1 C PO [facility] mcg capsule - BID ity of 00:00: [place] 00 Medical Branch AMITIZA 24 2020-0 Yes TK 1 C PO [facility] mcg capsule - BID ity of 00:00: [place] 00 Medical Branch AMITIZA 24 2020-0 Yes TK 1 C PO [facility] mcg capsule 7- BID ity of 00:00: [place] [facility] AMITIZA 24 2019-0 Yes TK 1 C PO Un ally mcg capsule 7- BID ity of 00:00: [place] [facility] AMITIZA 24 2019-0 Yes TK 1 C PO Un ally mcg capsule - BID ity of 00:00: [place] [facility] AMITIZA 24 2019-0 Yes TK 1 C PO [facility] mcg capsule - BID ity of 00:00: [place] [facility] AMITIZA 24 2019-0 Yes TK 1 C PO [facility] mcg capsule 05-06 BID ity of 00:00: [place] [facility] AMITIZA 24 2019-0 Yes TK 1 C PO [facility] mcg capsule 05-06 BID ity of 00:00: [place] [facility] AMITIZA 24 2019-0 Yes TK 1 C PO [facility] mcg capsule - BID ity of 00:00: [place] [facility] AMITIZA 24 2019-0 Yes TK 1 C PO [facility] mcg capsule - BID ity of 00:00: [place] [facility] AMITIZA 24 2019-0 Yes TK 1 C PO [facility] mcg capsule - BID ity of 00:00: [place] [facility] AMITIZA 24 2019-0 Yes TK 1 C PO [facility] mcg capsule 05-06 BID ity of 00:00: [place] [facility] AMITIZA 24 2019-0 Yes TK 1 C PO [facility] mcg capsule - BID ity of 00:00: [place] [facility] AMITIZA 24 2019-0 Yes TK 1 C PO [facility] mcg capsule - BID ity of 00:00: [place] [facility] AMITIZA 24 2019-0 Yes TK 1 C PO [facility] mcg capsule - BID ity of 00:00: [place] [facility] AMITIZA 24 2019-0 Yes TK 1 C PO [facility] mcg capsule - BID ity of 00:00: [place] [facility] AMITIZA 24 2019-0 Yes TK 1 C PO Un [facility] mcg capsule - BID ity of 00:00: [place] [facility] AMITIZA 24 2019-0 Yes TK 1 C PO [facility] mcg capsule 7- BID ity of 00:00: [place] [facility] AMITIZA 24 2020-0 Yes TK 1 C PO [facility] mcg capsule 05-06 BID ity of 00:00: [place] [facility] AMITIZA 24 2020-0 Yes TK 1 C PO Un [facility] mcg capsule 05-06 BID ity of 00:00: [place] [facility] AMITIZA 24 2020-0 Yes TK 1 C PO Un [facility] mcg capsule 05-06 BID ity of 00:00: [place] [facility] AMITIZA 24 2019-0 Yes TK 1 C PO Un [facility] mcg capsule 05-06 BID ity of 00:00: [place] [facility] AMITIZA 24 2020-0 Yes TK 1 C PO [facility] mcg capsule 05-06 BID ity of 00:00: [place] [facility] AMITIZA 24 2019-0 Yes TK 1 C PO [facility] mcg capsule 05-06 BID ity of 00:00: [place] [facility] AMITIZA 24 2019-0 Yes TK 1 C PO [facility] mcg capsule 05-06 BID ity of 00:00: [place] [facility] AMITIZA 24 2019-0 Yes TK 1 C PO [facility] mcg capsule 05-06 BID ity of 00:00: [place] [facility] AMITIZA 24 2019-0 Yes TK 1 C PO Un [facility] mcg capsule 05-06 BID ity of 00:00: [place] [facility] AMITIZA 24 2019-0 Yes TK 1 C PO [facility] mcg capsule 05-06 BID ity of 00:00: [place] [facility] AMITIZA 24 2020-0 Yes TK 1 C PO Un [facility] mcg capsule 05-06 BID ity of 00:00: [place] [facility] AMITIZA 24 2020-0 Yes TK 1 C PO [facility] mcg capsule 05-06 BID ity of 00:00: [place] [facility] AMITIZA 24 2020-0 Yes TK 1 C PO [facility] mcg capsule - BID ity of 00:00: [place] [facility] AMITIZA 24 2020-0 Yes TK 1 C PO [facility] mcg capsule 05-06 BID ity of 00:00: [place] 00 Medical Branch AMITIZA 24 2020-0 Yes TK 1 C PO Un ally mcg capsule 05-06 BID ity of 00:00: [place] [facility] AMITIZA 24 2020-0 Yes TK 1 C PO Un [facility] mcg capsule 7-06 BID ity of 00:00: [place] [facility] AMITIZA 24 2020-0 Yes TK 1 C PO [facility] mcg capsule 7-06 BID ity of 00:00: [place] [facility] AMITIZA 24 2019-0 Yes TK 1 C PO Un [facility] mcg capsule 7-06 BID ity of 00:00: [place] [facility] AMITIZA 24 2019-0 Yes TK 1 C PO Un [facility] mcg capsule 7-06 BID ity of 00:00: [place] [facility] AMITIZA 24 2019-0 Yes TK 1 C PO Un ally mcg capsule 7- BID ity of 00:00: [place] [facility] AMITIZA 24 2019-0 Yes TK 1 C PO Un [facility] mcg capsule - BID ity of 00:00: [place] [facility] AMITIZA 24 2019-0 Yes TK 1 C PO Un ally mcg capsule - BID ity of 00:00: [place] [facility] AMITIZA 24 2019-0 Yes TK 1 C PO Un ally mcg capsule 7- BID ity of 00:00: [place] [facility] AMITIZA 24 2019-0 Yes TK 1 C PO Un ally mcg capsule 7-06 BID ity of 00:00: [place] [facility] AMITIZA 24 2019-0 Yes TK 1 C PO Un [facility] mcg capsule - BID ity of 00:00: [place] [facility] AMITIZA 24 2019-0 Yes TK 1 C PO Un [facility] mcg capsule 7-06 BID ity of 00:00: [place] [facility] AMITIZA 24 2020-0 Yes TK 1 C PO Un [facility] mcg capsule 7-06 BID ity of 00:00: [place] [facility] AMITIZA 24 2019-0 Yes TK 1 C PO [facility] mcg capsule 7-06 BID ity of 00:00: [place] 00 Medical Branch AMITIZA 24 2020-0 Yes TK 1 C PO Un [facility] mcg capsule 7-06 BID ity of 00:00: [place] 00 Medical Branch XIFAXAN 550 2020-0 Yes as needed. [facility] mg tablet 5-14 ity of 00:00: [place] [facility] XIFAXAN 550 2020-0 Yes as needed. [facility] mg tablet 5-14 ity of 00:00: [place] [facility] XIFAXAN 550 2020-0 Yes as [...] tablet 5-14 ity of 00:00: Medical Branch VICTOZA 2020-0 Yes INJECT 1.8 [...] 00:00: mouth (two) Medical times Branch daily. allopurinol Yes [...] [facility] Branch ALPRAZolam 0 Yes 2mg Take 2 mg [facility] (XANAX) 8-28 by mouth ity of 0.25 mg 09:53: every 6 [place] tablet 14 (six) Medical hours as Branch needed. allopurinol 20190 Yes 100mg Take 100 U nivers (ZYLOPRIM) 8-28 mg by ity of 100 mg 09:53: mouth [place] tablet 14 daily. [facility] Branch ALPRAZolam 0 Yes 2mg Take 2 [...] hours as Branch needed. atorvastati 2019-0 Yes [id number] 40mg Take 1 [facility] n 40 mg 5-28 tablet by ity of tablet 00:00: mouth [place] 00 every Medical evening. Branch atorvastati 2019-0 Yes [id number] 40mg Take 1 [facility] n 40 mg 5-28 tablet by ity of tablet 00:00: mouth [place] 00 every Medical evening. Branch atorvastati 2018-0 Yes [id number] 40mg Take 1 [facility] n 40 mg 5-28 tablet by ity of tablet 00:00: mouth [place] 00 every Medical evening. Branch atorvastati 2018-0 Yes [id number] 40mg Take 1 [facility] n 40 mg 5-28 tablet by ity of tablet 00:00: mouth [place] 00 every Medical evening. Branch atorvastati 2018-0 Yes [id number] 40mg Take 1 [facility] n 40 mg 5-28 tablet by ity of tablet 00:00: mouth [place] 00 every Medical evening. Branch atorvastati 0 Yes [id number] 40mg Take 1 [facility] n 40 mg 5-28 tablet by ity of tablet 00:00: mouth [place] 00 every Medical evening. Branch atorvastati 0 Yes [id number] 40mg Take 1 [facility] n 40 mg 5-28 tablet by ity of tablet 00:00: mouth [place] 00 every Medical evening. [place] atorvastati 0 Yes [id number] 40mg Take 1 [facility] n 40 mg 5-28 tablet by ity of tablet 00:00: mouth [place] 00 every Medical evening. Branch atorvastati 0 Yes [id number] 40mg Take 1 [facility] n 40 mg 5-28 tablet by ity of tablet 00:00: mouth [place] 00 every Medical evening. Branch atorvastati 2018-0 Yes [id number] 40mg Take 1 [facility] n 40 mg 5-28 tablet by ity of tablet 00:00: mouth [place] 00 every Medical evening. Branch atorvastati 2018-0 Yes [id number] 40mg Take 1 [facility] n 40 mg 5-28 tablet by ity of tablet 00:00: mouth [place] 00 every Medical evening. Branch atorvastati 2018-0 Yes [id number] 40mg Take 1 [facility] n 40 mg 5-28 tablet by ity of tablet 00:00: mouth [place] 00 every Medical evening. Branch atorvastati 2018-0 Yes [id number] 40mg Take 1 [facility] n 40 mg 5-28 tablet by ity of tablet 00:00: mouth [place] 00 every Medical evening. [place] atorvastati 0 Yes [id number] 40mg Take 1 [facility] n 40 mg 5-28 tablet by ity of tablet 00:00: mouth [place] 00 every Medical evening. [place] atorvastati 0 Yes [id number] 40mg Take 1 [facility] n 40 mg 5-28 tablet by ity of tablet 00:00: mouth [place] 00 every Medical evening. [place] atorvastati Yes [id number] 40mg Take 1 [facility] n 40 mg 5-28 tablet by ity of tablet 00:00: mouth [place] 00 every Medical evening. [place] atorvastati Yes [id number] 40mg Take 1 [facility] n 40 mg 5-28 tablet by ity of tablet 00:00: mouth [place] 00 every Medical evening. [place] atorvastati Yes [id number] 40mg Take 1 [facility] n 40 mg 5-28 tablet by ity of tablet 00:00: mouth [place] 00 every Medical evening. [place] atorvastati Yes [id number] 40mg Take 1 [facility] n 40 mg 5-28 tablet by ity of tablet 00:00: mouth [place] 00 every Medical evening. [place] atorvastati Yes [id number] 40mg Take 1 [facility] n 40 mg 5-28 tablet by ity of tablet 00:00: mouth [place] 00 every Medical evening. [place] atorvastati 0 Yes [id number] 40mg Take 1 [facility] n 40 mg 5-28 tablet by ity of tablet 00:00: mouth [place] 00 every Medical evening. [place] atorvastati 0 Yes [id number] 40mg Take 1 [facility] n 40 mg 5-28 tablet by ity of tablet 00:00: mouth [place] 00 every Medical evening. [place] atorvastati 0 Yes [id number] 40mg Take 1 [facility] n 40 mg 5-28 tablet by ity of tablet 00:00: mouth [place] 00 every Medical evening. [place] atorvastati 0 Yes [id number] 40mg Take 1 [facility] n 40 mg 5-28 tablet by ity of tablet 00:00: mouth [place] 00 every Medical evening. [place] atorvastati Yes [id number] 40mg Take 1 [facility] n 40 mg 5-28 tablet by ity of tablet 00:00: mouth [place] 00 every Medical evening. [place] atorvastati Yes [id number] 40mg Take 1 [facility] n 40 mg 5-28 tablet by ity of tablet 00:00: mouth [place] 00 every Medical evening. Branch atorvastati Yes [id number] 40mg Take 1 [facility] n 40 mg 5-28 tablet by ity of tablet 00:00: mouth [place] 00 every Medical evening. Branch atorvastati Yes [id number] 40mg Take 1 [facility] n 40 mg 5-28 tablet by ity of tablet 00:00: mouth [place] 00 every Medical evening. [place] atorvastati Yes [id number] 40mg Take 1 [facility] n 40 mg 5-28 tablet by ity of tablet 00:00: mouth [place] 00 every Medical evening. [place] atorvastati Yes [id number] 40mg Take 1 [facility] n 40 mg 5-28 tablet by ity of tablet 00:00: mouth [place] 00 every Medical evening. Branch atorvastati Yes [id number] 40mg Take 1 [facility] n 40 mg 5-28 tablet by ity of tablet 00:00: mouth [place] 00 every Medical evening. [place] atorvastati Yes [id number] 40mg Take 1 [facility] n 40 mg 5-28 tablet by ity of tablet 00:00: mouth [place] 00 every Medical evening. [place] atorvastati Yes [id number] 40mg Take 1 [facility] n 40 mg 5-28 tablet by ity of tablet 00:00: mouth [place] 00 every Medical evening. Branch atorvastati 2021- No [id number] 40mg Take 1 [facility] n 40 mg 5-28 11-21 tablet by ity of tablet 00:00: 00:00 mouth [place] 00 :00 every Medical evening. Branch atorvastati 2021- No [id number] 40mg Take 1 [facility] n 40 mg [...] :00 daily. Medical Branch Cholecalcif 2017-11 Yes [id number] Take 1 Un ally alayna, 0-01 capsule by ity of Vitamin D3, 00:00: mouth [place] 50,000 unit 00 weekly. Medic al capsule Branch Cholecalcif 2017-11 Yes [id number] Take 1 Un ally alayna, 0-01 capsule by ity of Vitamin D3, 00:00: mouth [place] 50,000 unit 00 weekly. Medic al capsule Branch Cholecalcif 2017-11 Yes [id number] Take 1 Un ally alayna, 0-01 capsule by ity of Vitamin D3, 00:00: mouth [place] 50,000 unit 00 weekly. Medic al capsule Branch Cholecalcif 2017-11 Yes [id number] Take 1 Un ally alayna, 0-01 capsule by ity of Vitamin D3, 00:00: mouth [place] 50,000 unit 00 weekly. Medic al capsule Branch Cholecalcif 2017-11 Yes [id number] Take 1 Un ally alayna, 0-01 capsule by ity of Vitamin D3, 00:00: mouth [place] 50,000 unit 00 weekly. Medic al capsule Branch Cholecalcif 2017-11 Yes [id number] Take 1 Un ally alayna, 0-01 capsule by ity of Vitamin D3, 00:00: mouth [place] 50,000 unit 00 weekly. Medic al capsule Branch Cholecalcif 2017-11 Yes [id number] Take 1 Un ally alayna, 0-01 capsule by ity of Vitamin D3, 00:00: mouth [place] 50,000 unit 00 weekly. Medic al capsule Branch Cholecalcif 2017-11 Yes [id number] Take 1 Un ally alayna, 0-01 capsule by ity of Vitamin D3, 00:00: mouth [place] 50,000 unit 00 weekly. Medic al capsule Branch Cholecalcif 2017-11 Yes [id number] Take 1 Un ally alayna, 0-01 capsule by ity of Vitamin D3, 00:00: mouth [place] 50,000 unit 00 weekly. Medic al capsule Branch Cholecalcif 2017-11 Yes [id number] Take 1 Un ally alayna, 0-01 capsule by ity of Vitamin D3, 00:00: mouth [place] 50,000 unit 00 weekly. Medic al capsule Branch Cholecalcif 2017-11 Yes [id number] Take 1 Un ally alayna, 0-01 capsule by ity of Vitamin D3, 00:00: mouth [place] 50,000 unit 00 weekly. Medic al capsule Branch Cholecalcif 2017-11 Yes [id number] Take 1 Un ally alayna, 0-01 capsule by ity of Vitamin D3, 00:00: mouth [place] 50,000 unit 00 weekly. Medic al capsule Branch Cholecalcif 2017-11 Yes [id number] Take 1 Un ally alayna, 0-01 capsule by ity of Vitamin D3, 00:00: mouth [place] 50,000 unit 00 weekly. Medic al capsule Branch Cholecalcif 2017-11 Yes [id number] Take 1 Un ally alayna, 0-01 capsule by ity of Vitamin D3, 00:00: mouth [place] 50,000 unit 00 weekly. Medic al capsule Branch Cholecalcif 2017-11 Yes [id number] Take 1 Un ally alayna, 0-01 capsule by ity of Vitamin D3, 00:00: mouth [place] 50,000 unit 00 weekly. Medic al capsule Branch Cholecalcif 2017-11 Yes [id number] Take 1 Un ally alayna, 0-01 capsule by ity of Vitamin D3, 00:00: mouth [place] 50,000 unit 00 weekly. Medic al capsule Branch Cholecalcif 2017-11 Yes [id number] Take 1 Un ally alayna, 0-01 capsule by ity of Vitamin D3, 00:00: mouth [place] 50,000 unit 00 weekly. Medic al capsule Branch Cholecalcif 2017-11 Yes [id number] Take 1 Un ally alayna, 0-01 capsule by ity of Vitamin D3, 00:00: mouth [place] 50,000 unit 00 weekly. Medic al capsule Branch Cholecalcif 2017-11 Yes [id number] Take 1 Un ally alayna, 0-01 capsule by ity of Vitamin D3, 00:00: mouth [place] 50,000 unit 00 weekly. Medic al capsule Branch Cholecalcif 2017-11 Yes [id number] Take 1 Un ally alayna, 0-01 capsule by ity of Vitamin D3, 00:00: mouth [place] 50,000 unit 00 weekly. Medic al capsule Branch Cholecalcif 2017-11 Yes [id number] Take 1 Un ally alayna, 0-01 capsule by ity of Vitamin D3, 00:00: mouth [place] 50,000 unit 00 weekly. Medic al capsule Branch Cholecalcif 2017-11 Yes [id number] Take 1 Un ally alayna, 0-01 capsule by ity of Vitamin D3, 00:00: mouth [place] 50,000 unit 00 weekly. Medic al capsule Branch Cholecalcif 2017-11 Yes [id number] Take 1 Un ally alayna, 0-01 capsule by ity of Vitamin D3, 00:00: mouth [place] 50,000 unit 00 weekly. Medic al capsule Branch Cholecalcif 2017-11 Yes [id number] Take 1 Un ally alayna, 0-01 capsule by ity of Vitamin D3, 00:00: mouth [place] 50,000 unit 00 weekly. Medic al capsule Branch Cholecalcif 2017-11 Yes [id number] Take 1 Un ally alayna, 0-01 capsule by ity of Vitamin D3, 00:00: mouth [place] 50,000 unit 00 weekly. Medic al capsule Branch Cholecalcif 2017-11 Yes [id number] Take 1 Un ally alayna, 0-01 capsule by ity of Vitamin D3, 00:00: mouth [place] 50,000 unit 00 weekly. Medic al capsule Branch Cholecalcif 2017-11 Yes [id number] Take 1 Un ally alayna, 0-01 capsule by ity of Vitamin D3, 00:00: mouth [place] 50,000 unit 00 weekly. Medic al capsule Branch Cholecalcif 2017-11 Yes [id number] Take 1 Un ally alayna, 0-01 capsule by ity of Vitamin D3, 00:00: mouth [place] 50,000 unit 00 weekly. Medic al capsule Branch Cholecalcif 2017-11 Yes [id number] Take 1 Un ally alayna, 0-01 capsule by ity of Vitamin D3, 00:00: mouth [place] 50,000 unit 00 weekly. Medic al capsule Branch Cholecalcif 2017-11 Yes [id number] Take 1 Un ally alayna, 0-01 capsule by ity of Vitamin D3, 00:00: mouth [place] 50,000 unit 00 weekly. Medic al capsule Branch Cholecalcif 2017-11 Yes [id number] Take 1 Un ally alayna, 0-01 capsule by ity of Vitamin D3, 00:00: mouth [place] 50,000 unit 00 weekly. Medic al capsule Branch Cholecalcif 2017-11 Yes [id number] Take 1 Un ally alayna, 0-01 capsule by ity of Vitamin D3, 00:00: mouth [place] 50,000 unit 00 weekly. Medic al capsule Branch Cholecalcif 2017-11 Yes [id number] Take 1 Un ally alayna, 0-01 capsule by ity of Vitamin D3, 00:00: mouth [place] 50,000 unit 00 weekly. Medic al capsule Branch Cholecalcif 2017-11 Yes [id number] Take 1 Un ally alayna, 0-01 capsule by ity of Vitamin D3, 00:00: mouth [place] 50,000 unit 00 weekly. Medic al capsule Branch Cholecalcif 2017-11 Yes [id number] Take 1 Un ally alayna, 0-01 capsule by ity of Vitamin D3, 00:00: mouth [place] 50,000 unit 00 weekly. Medic al capsule Branch Cholecalcif 2017-11 Yes [id number] Take 1 Un ally alayna, 0-01 capsule by ity of Vitamin D3, 00:00: mouth [place] 50,000 unit 00 weekly. Medic al capsule Branch Cholecalcif 2017-11 Yes [id number] Take 1 Un ally alayna, 0-01 capsule by ity of Vitamin D3, 00:00: mouth [place] 50,000 unit 00 weekly. Medic al capsule Branch Cholecalcif 2017-11 Yes [id number] Take 1 Un ally alayna, 0-01 capsule by ity of Vitamin D3, 00:00: mouth [place] 50,000 unit 00 weekly. Medic al capsule Branch Cholecalcif 2017-11 Yes [id number] Take 1 Un ally alayna, 0-01 capsule by ity of Vitamin D3, 00:00: mouth [place] 50,000 unit 00 weekly. Medic al capsule Branch Cholecalcif 2017-11 Yes [id number] Take 1 Un ally alayna, 0-01 capsule by ity of Vitamin D3, 00:00: mouth [place] 50,000 unit 00 weekly. Medic al capsule Branch Cholecalcif 2017-11 Yes [id number] Take 1 Un ally alayna, 0-01 capsule by ity of Vitamin D3, 00:00: mouth [place] 50,000 unit 00 weekly. Medic al capsule Branch Cholecalcif 2017-11 Yes [id number] Take 1 Un ally alayna, 0-01 capsule by ity of Vitamin D3, 00:00: mouth [place] 50,000 unit 00 weekly. Medic al capsule Branch Cholecalcif 2017-11 Yes [id number] Take 1 Un ally alayna, 0-01 capsule by ity of Vitamin D3, 00:00: mouth [place] 50,000 unit 00 weekly. Medic al capsule Branch Cholecalcif 2017-11 Yes [id number] Take 1 Un ally alayna, 0-01 capsule by ity of Vitamin D3, 00:00: mouth [place] 50,000 unit 00 weekly. Medic al capsule Branch Cholecalcif 2017-11 Yes [id number] Take 1 Un ally alayna, 0-01 capsule by ity of Vitamin D3, 00:00: mouth [place] 50,000 unit 00 weekly. Medic al capsule Branch Cholecalcif 2017-11 Yes [id number] Take 1 Un ally alayna, 0-01 capsule by ity of Vitamin D3, 00:00: mouth [place] 50,000 unit 00 weekly. Medic al capsule Branch Cholecalcif 2017-11 Yes [id number] Take 1 Un ally alayna, 0-01 capsule by ity of Vitamin D3, 00:00: mouth [place] 50,000 unit 00 weekly. Medic al capsule Branch Cholecalcif 2017-11 Yes [id number] Take 1 Un ally alayna, 0-01 capsule by ity of Vitamin D3, 00:00: mouth [place] 50,000 unit 00 weekly. Medic al capsule Branch Cholecalcif 2017-11 Yes [id number] Take 1 Un ally alayna, 0-01 capsule by ity of Vitamin D3, 00:00: mouth [place] 50,000 unit 00 weekly. Medic al capsule Branch Cholecalcif 2017-11 Yes [id number] Take 1 Un ally alayna, 0-01 capsule by ity of Vitamin D3, 00:00: mouth [place] 50,000 unit 00 weekly. Medic al capsule Branch Cholecalcif 2017-11 Yes [id number] Take 1 Un ally alayna, 0-01 capsule by ity of Vitamin D3, 00:00: mouth [place] 50,000 unit 00 weekly. Medic al capsule Branch Cholecalcif 2017-11 Yes [id number] Take 1 Un ally alayna, 0-01 capsule by ity of Vitamin D3, 00:00: mouth [place] 50,000 unit 00 weekly. Medic al capsule Branch Lactated 0 No 1,000 mL, [place] radha Ringers IV 04-04 Rate: 40 l 1,000 mL 19:14: ml/hr, [place] 00 Infuse over: 25 hr, Route: IV, Dosing Weight 141.364 kg, Total Volume: 1,000, Start date: 04/04/18 14:14:00 CDT, Duration: 30 day, Stop date: 05/04/18 14:13:00 CDT, 2.56, m2 Lactated 0 No 1,000 mL, [place] radha Ringers IV 04-04 Rate: 40 l 1,000 mL 19:14: ml/hr, [place] 00 Infuse over: 25 hr, Route: IV, [...] Rate: 40 l 1,000 mL 19:14: ml/hr, [place] 00 Infuse over: 25 hr, Route: IV, Dosing Weight 141.364 kg, Total Volume: 1,000, Start date: 04/04/18 14:14:00 CDT, Duration: 30 day, Stop date: 05/04/18 14:13:00 CDT, 2.56, m2 Lactated 2018-0 No 1,000 mL, [place] radha Ringers IV 6-04 Rate: 40 l 1,000 mL 19:14: ml/hr, [place] 00 Infuse over: 25 hr, Route: IV, Dosing Weight 141.364 kg, Total Volume: 1,000, Start date: 04/04/18 14:14:00 CDT, Duration: 30 day, Stop date: 05/04/18 14:13:00 CDT, 2.56, m2 Lactated 2018-0 No 1,000 mL, [place] rad[facility] Ringers IV 6-04 Rate: 40 l 1,000 mL 19:14: ml/hr, [place] 00 Infuse over: 25 hr, Route: IV, Dosing Weight 141.364 kg, Total Volume: 1,000, Start date: 04/04/18 14:14:00 CDT, Duration: 30 day, Stop date: 05/04/18 14:13:00 CDT, 2.56, m2 Lactated 2018-0 No 1,000 mL, [place] radha Ringers IV 6-04 Rate: 40 l 1,000 mL 19:14: ml/hr, [place] 00 Infuse over: 25 hr, Route: IV, [...] Rate: 40 l 1,000 mL 19:14: ml/hr, [place] 00 Infuse over: 25 hr, Route: IV, [...] Rate: 40 l 1,000 mL 19:14: ml/hr, [place] 00 Infuse over: 25 hr, Route: IV, [...] Rate: 40 l 1,000 mL 19:14: ml/hr, [place] 00 Infuse over: 25 hr, Route: IV, [...] Rate: 40 l 1,000 mL 19:14: ml/hr, [place] 00 Infuse over: 25 hr, Route: IV, [...] Rate: 40 l 1,000 mL 19:14: ml/hr, [place] 00 Infuse over: 25 hr, Route: IV, Dosing Weight 141.364 kg, Total Volume: 1,000, Start date: 04/04/18 14:14:00 CDT, Duration: 30 day, Stop date: 05/04/18 14:13:00 CDT, 2.56, m2 Lactated 2018-0 No 1,000 mL, [place] radha Ringers IV 6-04 Rate: 40 l 1,000 mL 19:14: ml/hr, [place] 00 Infuse over: 25 hr, Route: IV, [...] Rate: 40 l 1,000 mL 19:14: ml/hr, [place] 00 Infuse over: 25 hr, Route: IV, Dosing Weight 141.364 kg, Total Volume: 1,000, Start date: 04/04/18 14:14:00 CDT, Duration: 30 day, Stop date: 05/04/18 14:13:00 CDT, 2.56, m2 Lactated 2018-0 No 1,000 mL, [place] radha Ringers IV 6-04 Rate: 40 l 1,000 mL 19:14: ml/hr, [place] 00 Infuse over: 25 hr, Route: IV, Dosing Weight 141.364 kg, Total Volume: 1,000, Start date: 04/04/18 14:14:00 CDT, Duration: 30 day, Stop date: 05/04/18 14:13:00 CDT, 2.56, m2 Lactated 2018-0 No 1,000 mL, [place] radha Ringers IV 6-04 Rate: 40 l 1,000 mL 19:14: ml/hr, [place] 00 Infuse over: 25 hr, Route: IV, Dosing Weight 141.364 kg, Total Volume: 1,000, Start date: 04/04/18 14:14:00 CDT, Duration: 30 day, Stop date: 05/04/18 14:13:00 CDT, 2.56, m2 Lactated 2018-0 No 1,000 mL, [place] rad[facility] Ringers IV 6- Rate: 40 l 1,000 mL 19:14: ml/hr, [place] 00 Infuse over: 25 hr, Route: IV, [...] Rate: 40 l 1,000 mL 19:14: ml/hr, [place] 00 Infuse over: 25 hr, Route: IV, Dosing Weight 141.364 kg, Total Volume: 1,000, Start date: 04/04/18 14:14:00 CDT, Duration: 30 day, Stop date: 05/04/18 14:13:00 CDT, 2.56, m2 Lactated 2018-0 No 1,000 mL, [place] rad[facility] Ringers IV 6-04 Rate: 40 l 1,000 mL 19:14: ml/hr, [place] 00 Infuse over: 25 hr, Route: IV, Dosing Weight 141.364 kg, Total Volume: 1,000, Start date: 04/04/18 14:14:00 CDT, Duration: 30 day, Stop date: 05/04/18 14:13:00 CDT, 2.56, m2 Lactated 2018-0 No 1,000 mL, [place] rad[facility] Ringers IV 6-04 Rate: 40 l 1,000 mL 19:14: ml/hr, [place] 00 Infuse over: 25 hr, Route: IV, [...] Rate: 40 l 1,000 mL 19:14: ml/hr, [place] 00 Infuse over: 25 hr, Route: IV, Dosing Weight 141.364 kg, Total Volume: 1,000, Start date: 04/04/18 14:14:00 CDT, Duration: 30 day, Stop date: 05/04/18 14:13:00 CDT, 2.56, m2 Lactated 2018-0 No 1,000 mL, [place] rad[facility] Ringers IV 6-04 Rate: 40 l 1,000 mL 19:14: ml/hr, [place] 00 Infuse over: 25 hr, Route: IV, [...] Rate: 40 l 1,000 mL 19:14: ml/hr, [place] 00 Infuse over: 25 hr, Route: IV, [...] Rate: 40 l 1,000 mL 19:14: ml/hr, [place] 00 Infuse over: 25 hr, Route: IV, Dosing Weight 141.364 kg, Total Volume: 1,000, Start date: 04/04/18 14:14:00 CDT, Duration: 30 day, Stop date: 05/04/18 14:13:00 CDT, 2.56, m2 Lactated 2018-0 No 1,000 mL, [place] rad[facility] Ringers IV 6-04 Rate: 40 l 1,000 mL 19:14: ml/hr, [place] 00 Infuse over: 25 hr, Route: IV, [...] Rate: 40 l 1,000 mL 19:14: ml/hr, [place] 00 Infuse over: 25 hr, Route: IV, Dosing Weight 141.364 kg, Total Volume: 1,000, Start date: 04/04/18 14:14:00 CDT, Duration: 30 day, Stop date: 05/04/18 14:13:00 CDT, 2.56, m2 Lactated 2018-0 No 1,000 mL, [place] rad[facility] Ringers IV 6-04 Rate: 40 l 1,000 mL 19:14: ml/hr, [place] 00 Infuse over: 25 hr, Route: IV, [...] Rate: 40 l 1,000 mL 19:14: ml/hr, [place] 00 Infuse over: 25 hr, Route: IV, [...] Rate: 40 l 1,000 mL 19:14: ml/hr, [place] 00 Infuse over: 25 hr, Route: IV, Dosing Weight 141.364 kg, Total Volume: 1,000, Start date: 04/04/18 14:14:00 CDT, Duration: 30 day, Stop date: 05/04/18 14:13:00 CDT, 2.56, m2 Lactated 2018-0 No 1,000 mL, [place] rad[facility] Ringers IV 6-04 Rate: 40 l 1,000 mL 19:14: ml/hr, [place] 00 Infuse over: 25 hr, Route: IV, [...] Rate: 40 l 1,000 mL 19:14: ml/hr, [place] 00 Infuse over: 25 hr, Route: IV, Dosing Weight 141.364 kg, Total Volume: 1,000, Start date: 04/04/18 14:14:00 CDT, Duration: 30 day, Stop date: 05/04/18 14:13:00 CDT, 2.56, m2 Lactated 2018-0 No 1,000 mL, [place] radha Ringers IV 6-04 Rate: 40 l 1,000 mL 19:14: ml/hr, [place] 00 Infuse over: 25 hr, Route: IV, Dosing Weight 141.364 kg, Total Volume: 1,000, Start date: 04/04/18 14:14:00 CDT, Duration: 30 day, Stop date: 05/04/18 14:13:00 CDT, 2.56, m2 Lactated 2018-0 No 1,000 mL, [place] radha Ringers IV 6-04 Rate: 40 l 1,000 mL 19:14: ml/hr, [place] 00 Infuse over: 25 hr, Route: IV, Dosing Weight 141.364 kg, Total Volume: 1,000, Start date: 04/04/18 14:14:00 CDT, Duration: 30 day, Stop date: 05/04/18 14:13:00 CDT, 2.56, m2 Lactated 2018-0 No 1,000 mL, [place] radha Ringers IV 6-04 Rate: 40 l 1,000 mL 19:14: ml/hr, [place] 00 Infuse over: 25 hr, Route: IV, Dosing Weight 141.364 kg, Total Volume: 1,000, Start date: 04/04/18 14:14:00 CDT, Duration: 30 day, Stop date: 05/04/18 14:13:00 CDT, 2.56, m2 Lactated 2018-0 No 1,000 mL, [place] rad[facility] Ringers IV 6-04 Rate: 40 l 1,000 mL 19:14: ml/hr, [place] 00 Infuse over: 25 hr, Route: IV, Dosing Weight 141.364 kg, Total Volume: 1,000, Start date: 04/04/18 14:14:00 CDT, Duration: 30 day, Stop date: 05/04/18 14:13:00 CDT, 2.56, m2 Lactated 2018-0 No 1,000 mL, [place] rad[facility] Ringers IV 6-04 Rate: 40 l 1,000 mL 19:14: ml/hr, [place] 00 Infuse over: 25 hr, Route: IV, [...] No 1,000 mL, [place] rad[facility] Ringers IV 6 Rate: 40 l 1,000 mL 19:14: ml/hr, [place] 00 Infuse over: 25 hr, Route: IV, Dosing Weight 141.364 kg, Total Volume: 1,000, Start date: 04/04/18 14:14:00 CDT, Duration: 30 day, Stop date: 05/04/18 14:13:00 CDT, 2.56, m2 Lactated 2018-0 No 1,000 mL, [place] rad[facility] Ringers IV 04-04 Rate: 40 l 1,000 mL 19:14: ml/hr, [place] 00 Infuse over: 25 hr, Route: IV, Dosing Weight 141.364 kg, Total Volume: 1,000, Start date: 04/04/18 14:14:00 CDT, Duration: 30 day, Stop date: 05/04/18 14:13:00 CDT, 2.56, m2 Humulin 2018-0 Yes 60 unit, [facility] 70/30 5-15 SUB-Q, l 18:44: QPM, 0 [place] 00 Refill(s) Humulin 2018-0 Yes 60 unit, [facility] 70/30 5-15 SUB-Q, l 18:44: QPM, 0 [place] 00 Refill(s) Humulin 2018-0 Yes 60 unit, [facility] 70/30 5-15 SUB-Q, l 18:44: QPM, 0 [place] 00 Refill(s) Humulin 2018-0 Yes 60 unit, [facility] a 70/30 5-15 SUB-Q, l 18:44: QPM, 0 [place] 00 Refill(s) Humulin 2018-0 Yes 60 unit, [facility] 70/30 5-15 SUB-Q, l 18:44: QPM, 0 [place] 00 Refill(s) Humulin 2018-0 Yes 60 unit, [facility] a 70/30 5-15 SUB-Q, l 18:44: QPM, 0 [place] 00 Refill(s) Humulin 2018-0 Yes 60 unit, [facility] a 70/30 5-15 SUB-Q, l 18:44: QPM, 0 [place] 00 Refill(s) Humulin 2018-0 Yes 60 unit, [...] 70/30 5-15 SUB-Q, l 18:44: QPM, 0 [place] 00 Refill(s) Humulin 2018-0 Yes 60 unit, [facility] a 70/30 5-15 SUB-Q, l 18:44: QPM, 0 [place] 00 Refill(s) Humulin 2018-0 Yes 60 unit, [facility] 70/30 5-15 SUB-Q, l 18:44: QPM, 0 [place] 00 Refill(s) Humulin 2018-0 Yes 60 unit, [facility] a 70/30 5-15 SUB-Q, l 18:44: QPM, 0 [place] 00 Refill(s) Humulin 2018-0 Yes 60 unit, [facility] a 70/30 5-15 SUB-Q, l 18:44: QPM, 0 [place] 00 Refill(s) Humulin 2018-0 Yes 60 unit, [facility] a 70/30 5-15 SUB-Q, l 18:44: QPM, 0 [place] 00 Refill(s) Humulin 2018-0 Yes 60 unit, [facility] a 70/30 5-15 SUB-Q, l 18:44: QPM, 0 [place] 00 Refill(s) Humulin 2018-0 Yes 60 unit, [facility] 70/30 5-15 SUB-Q, l 18:44: QPM, 0 [place] 00 Refill(s) Humulin 2018-0 Yes 60 unit, [facility] 70/30 5-15 SUB-Q, l 18:44: QPM, 0 [place] 00 Refill(s) Humulin 2018-0 Yes 60 unit, [facility] 70/30 5-15 SUB-Q, l 18:44: QPM, 0 [place] 00 Refill(s) Humulin 2018-0 Yes 60 unit, [facility] 70/30 5-15 SUB-Q, l 18:44: QPM, 0 [place] 00 Refill(s) Humulin 2018-0 Yes 60 unit, [facility] 70/30 5-15 SUB-Q, l 18:44: QPM, 0 [place] 00 Refill(s) Humulin 2018-0 Yes 60 unit, [facility] 70/30 5-15 SUB-Q, l 18:44: QPM, 0 [place] 00 Refill(s) Humulin 2017-0 Yes 60 unit, [facility] 70/30 5-15 SUB-Q, l 18:44: QPM, 0 [place] 00 Refill(s) Humulin 2018-0 Yes 60 unit, [facility] 70/30 5-15 SUB-Q, l 18:44: QPM, 0 [place] 00 Refill(s) Humulin 2017-0 Yes 60 unit, [facility] 70/30 5-15 SUB-Q, l 18:44: QPM, 0 [place] 00 Refill(s) Humulin 2018-0 Yes 60 unit, [facility] 70/30 5-15 SUB-Q, l 18:44: QPM, 0 [place] 00 Refill(s) Humulin 2018-0 Yes 60 unit, [facility] 70/30 5-15 SUB-Q, l 18:44: QPM, 0 [place] 00 Refill(s) Humulin 2018-0 Yes 60 unit, [facility] 70/30 5-15 SUB-Q, l 18:44: QPM, 0 [place] 00 Refill(s) Humulin 2018-0 Yes 60 unit, [facility] 70/30 5-15 SUB-Q, l 18:44: QPM, 0 [place] 00 Refill(s) Humulin 2017-0 Yes 60 unit, [facility] 70/30 5-15 SUB-Q, l 18:44: QPM, 0 [place] 00 Refill(s) Humulin 2018-0 Yes 60 unit, [facility] 70/30 5-15 SUB-Q, l 18:44: QPM, 0 [place] 00 Refill(s) Humulin 2018-0 Yes 60 unit, [facility] 70/30 5-15 SUB-Q, l 18:44: QPM, 0 [place] 00 Refill(s) Humulin 2018-0 Yes 60 unit, [facility] a 70/30 5-15 SUB-Q, l 18:44: QPM, 0 [place] 00 Refill(s) Humulin 2018-0 Yes 60 unit, [facility] 70/30 5-15 SUB-Q, l 18:44: QPM, 0 [place] 00 Refill(s) Humulin 2018-0 Yes 60 unit, [facility] 70/30 5-15 SUB-Q, l 18:44: QPM, 0 [place] 00 Refill(s) Humulin 2018-0 Yes 60 unit, [facility] a 70/30 5-15 SUB-Q, l 18:44: QPM, 0 [place] 00 Refill(s) Humulin 2018-0 Yes 60 unit, [facility] 70/30 5-15 SUB-Q, l 18:44: QPM, 0 [place] 00 Refill(s) Humulin 2018-0 Yes 60 unit, [...] 70/30 5-15 SUB-Q, l 18:44: QPM, 0 [place] 00 Refill(s) Humulin 2018-0 Yes 60 unit, [facility] 70/30 5-15 SUB-Q, l 18:44: QPM, 0 [place] 00 Refill(s) Humulin 2018-0 Yes 60 unit, [...] 70/30 5-15 SUB-Q, l 18:44: QPM, 0 [place] 00 Refill(s) Humulin 2018-0 Yes 60 unit, [facility] 70/30 5-15 SUB-Q, l 18:44: QPM, 0 [place] 00 Refill(s) Humulin 2018-0 Yes 60 unit, [facility] 70/30 5-15 SUB-Q, l 18:44: QPM, 0 [place] 00 Refill(s) Humulin 2018-0 Yes 60 unit, [...] 70/30 5-15 SUB-Q, l 18:44: QPM, 0 [place] 00 Refill(s) Humulin 2018-0 Yes 60 unit, [facility] 70/30 5-15 SUB-Q, l 18:44: QPM, 0 [place] 00 Refill(s) Humulin 2018-0 Yes 60 unit, [facility] 70/30 5-15 SUB-Q, l 18:44: QPM, 0 [place] 00 Refill(s) Humulin 2018-0 Yes 60 unit, [facility] 70/30 5-15 SUB-Q, l 18:44: QPM, 0 [place] 00 Refill(s) Humulin 2018-0 Yes 60 unit, [facility] 70/30 5-15 SUB-Q, l 18:44: QPM, 0 [place] 00 Refill(s) Humulin 2017-0 Yes 60 unit, [facility] 70/30 5-15 SUB-Q, l 18:44: QPM, 0 [place] 00 Refill(s) Humulin 2017-0 Yes 60 unit, [facility] 70/30 5-15 SUB-Q, l 18:44: QPM, 0 [place] 00 Refill(s) Humulin 2018-0 Yes 60 unit, [...] 70/30 5-15 SUB-Q, l 18:43: QAM, 0 [place] 00 Refill(s) Humulin 2017-0 Yes 70 unit, [...] 70/30 5-15 SUB-Q, l 18:43: QAM, 0 [place] 00 Refill(s) Humulin 2018-0 Yes 70 unit, [facility] 70/30 5-15 SUB-Q, l 18:43: QAM, 0 [place] 00 Refill(s) Humulin 2018-0 Yes 70 unit, [facility] 70/30 5-15 SUB-Q, l 18:43: QAM, 0 [place] 00 Refill(s) Humulin 2018-0 Yes 70 unit, [facility] 70/30 5-15 SUB-Q, l 18:43: QAM, 0 [place] 00 Refill(s) Humulin 2017-0 Yes 70 unit, [facility] 70/30 5-15 SUB-Q, l 18:43: QAM, 0 [place] 00 Refill(s) Humulin 2017-0 Yes 70 unit, [facility] 70/30 5-15 SUB-Q, l 18:43: QAM, 0 [place] 00 Refill(s) Humulin 2018-0 Yes 70 unit, [facility] 70/30 5-15 SUB-Q, l 18:43: QAM, 0 [place] 00 Refill(s) Humulin 2018-0 Yes 70 unit, [facility] 70/30 5-15 SUB-Q, l 18:43: QAM, 0 [place] 00 Refill(s) Humulin 2018-0 Yes 70 unit, [facility] 70/30 5-15 SUB-Q, l 18:43: QAM, 0 [place] 00 Refill(s) Humulin 2018-0 Yes 70 unit, [facility] 70/30 5-15 SUB-Q, l 18:43: QAM, 0 [place] 00 Refill(s) Humulin 2018-0 Yes 70 unit, [facility] 70/30 5-15 SUB-Q, l 18:43: QAM, 0 [place] 00 Refill(s) Humulin 2018-0 Yes 70 unit, [facility] 70/30 5-15 SUB-Q, l 18:43: QAM, 0 [place] 00 Refill(s) Humulin 2018-0 Yes 70 unit, [facility] 70/30 5-15 SUB-Q, l 18:43: QAM, 0 [place] 00 Refill(s) Humulin 2018-0 Yes 70 unit, [facility] 70/30 5-15 SUB-Q, l 18:43: QAM, 0 [place] 00 Refill(s) Humulin 2018-0 Yes 70 unit, [facility] 70/30 5-15 SUB-Q, l 18:43: QAM, 0 [place] 00 Refill(s) Humulin 2017-0 Yes 70 unit, [facility] 70/30 5-15 SUB-Q, l 18:43: QAM, 0 [place] 00 Refill(s) Humulin 2017-0 Yes 70 unit, [...] 70/30 5-15 SUB-Q, l 18:43: QAM, 0 [place] 00 Refill(s) Humulin 2017-0 Yes 70 unit, [facility] 70/30 5-15 SUB-Q, l 18:43: QAM, 0 [place] 00 Refill(s) Humulin 2018-0 Yes 70 unit, [facility] 70/30 5-15 SUB-Q, l 18:43: QAM, 0 [place] 00 Refill(s) Humulin 2018-0 Yes 70 unit, [facility] 70/30 5-15 SUB-Q, l 18:43: QAM, 0 [place] 00 Refill(s) Humulin 2018-0 Yes 70 unit, [facility] a 70/30 5-15 SUB-Q, l 18:43: QAM, 0 [place] 00 Refill(s) Humulin 2017-0 Yes 70 unit, [facility] a 70/30 5-15 SUB-Q, l 18:43: QAM, 0 [place] 00 Refill(s) Humulin 2018-0 Yes 70 unit, [facility] a 70/30 5-15 SUB-Q, l 18:43: QAM, 0 [place] 00 Refill(s) Humulin 2018-0 Yes 70 unit, [...] 70/30 5-15 SUB-Q, l 18:43: QAM, 0 [place] 00 Refill(s) Humulin 2018-0 Yes 70 unit, [facility] a 70/30 5-15 SUB-Q, l 18:43: QAM, 0 [place] 00 Refill(s) Humulin 2018-0 Yes 70 unit, [facility] a 70/30 5-15 SUB-Q, l 18:43: QAM, 0 [place] 00 Refill(s) Humulin 2018-0 Yes 70 unit, [...] 70/30 5-15 SUB-Q, l 18:43: QAM, 0 [place] 00 Refill(s) Humulin 2018-0 Yes 70 unit, [facility] a 70/30 5-15 SUB-Q, l 18:43: QAM, 0 [place] 00 Refill(s) Humulin 2018-0 Yes 70 unit, [facility] a 70/30 5-15 SUB-Q, l 18:43: QAM, 0 [place] 00 Refill(s) Humulin 2018-0 Yes 70 unit, [facility] a 70/30 5-15 SUB-Q, l 18:43: QAM, 0 [place] 00 Refill(s) Humulin 2018-0 Yes 70 unit, [facility] a 70/30 5-15 SUB-Q, l 18:43: QAM, 0 [place] 00 Refill(s) Humulin 2018-0 Yes 70 unit, [facility] a 70/30 5-15 SUB-Q, l 18:43: QAM, 0 [place] 00 Refill(s) Humulin 2018-0 Yes 70 unit, [facility] a 70/30 5-15 SUB-Q, l 18:43: QAM, 0 [place] 00 Refill(s) Humulin 2018-0 Yes 70 unit, [facility] a 70/30 5-15 SUB-Q, l 18:43: QAM, 0 [place] 00 Refill(s) Humulin 2018-0 Yes 70 unit, [facility] a 70/30 5-15 SUB-Q, l 18:43: QAM, 0 [place] 00 Refill(s) Humulin 2018-0 Yes 70 unit, [facility] a 70/30 5-15 SUB-Q, l 18:43: QAM, 0 [place] 00 Refill(s) Humulin 2018-0 Yes 70 unit, [facility] a 70/30 5-15 SUB-Q, l 18:43: QAM, 0 [place] 00 Refill(s) Humulin 2018-0 Yes 70 unit, [facility] a 70/30 5-15 SUB-Q, l 18:43: QAM, 0 [place] 00 Refill(s) Humulin 2017-0 Yes 70 unit, [facility] a 70/30 5-15 SUB-Q, l 18:43: QAM, 0 [place] 00 Refill(s) Humulin 2017-0 Yes 70 unit, [facility] a 70/30 5-15 SUB-Q, l 18:43: QAM, 0 [place] 00 Refill(s) Humulin 2017-0 Yes 70 unit, [facility] a 70/30 5-15 SUB-Q, l 18:43: QAM, 0 [place] 00 Refill(s) Humulin 2017-0 Yes 70 unit, [facility] a 70/30 5-15 SUB-Q, l 18:43: QAM, 0 [place] 00 Refill(s) Humulin 0 Yes 70 unit, [facility] a 70/30 5-15 SUB-Q, l 18:43: QAM, 0 [place] 00 Refill(s) Humulin 2017-0 Yes 70 unit, [facility] a 70/30 5-15 SUB-Q, l 18:43: QAM, 0 [place] 00 Refill(s) Humulin 2017-0 Yes 70 unit, [facility] a 70/30 5-15 SUB-Q, l 18:43: QAM, 0 [place] 00 Refill(s) Humulin 0 Yes 70 unit, [facility] a 70/30 5-15 [...] tab, PO, l Tablet 16:37: TID, 0 [place] [Xanax] 00 Refill(s) Alprazolam 0 Yes 2 mg = 1 [facility] 2 MG Oral -07 tab, PO, l Tablet 16:37: TID, 0 [place] [Xanax] 00 Refill(s) Alprazolam Yes 2 mg = 1 [facility] 2 MG Oral -07 tab, PO, l Tablet 16:37: TID, 0 [place] [Xanax] 00 Refill(s) Alprazolam 0 Yes 2 mg = 1 [facility] 2 MG Oral 07 tab, PO, l Tablet 16:37: TID, 0 [place] [Xanax] 00 Refill(s) Alprazolam 20160 Yes 2 mg = 1 [facility] 2 MG Oral -07 tab, PO, l Tablet 16:37: TID, 0 [place] [Xanax] 00 Refill(s) Alprazolam 20160 Yes 2 mg = 1 [facility] 2 MG Oral -07 tab, PO, l Tablet 16:37: TID, 0 [place] [Xanax] 00 Refill(s) Alprazolam 0 Yes 2 mg = 1 [facility] 2 MG Oral -07 tab, PO, l Tablet 16:37: TID, 0 [place] [Xanax] 00 Refill(s) Alprazolam 0 Yes 2 mg = 1 [facility] 2 MG Oral -07 tab, PO, l Tablet 16:37: TID, 0 [place] [Xanax] 00 Refill(s) Alprazolam 0 Yes 2 mg = 1 [facility] 2 MG Oral -07 tab, PO, l Tablet 16:37: TID, 0 [place] [Xanax] 00 Refill(s) Alprazolam 2016-0 Yes 2 mg = 1 [facility] 2 MG Oral 1-07 tab, PO, l Tablet 16:37: TID, 0 [place] [Xanax] 00 Refill(s) Alprazolam 20160 Yes 2 mg = 1 [facility] 2 MG Oral 1-07 tab, PO, l Tablet 16:37: TID, 0 [place] [Xanax] 00 Refill(s) Alprazolam 20160 Yes 2 mg = 1 [facility] 2 MG Oral -07 tab, PO, l Tablet 16:37: TID, 0 [place] [Xanax] 00 Refill(s) Alprazolam 20160 Yes 2 mg = 1 [facility] 2 MG Oral -07 tab, PO, l Tablet 16:37: TID, 0 [place] [Xanax] 00 Refill(s) Alprazolam 20160 Yes 2 mg = 1 [facility] 2 MG Oral -07 tab, PO, l Tablet 16:37: TID, 0 [place] [Xanax] 00 Refill(s) Alprazolam 20160 Yes 2 mg = 1 [facility] 2 MG Oral -07 tab, PO, l Tablet 16:37: TID, 0 [place] [Xanax] 00 Refill(s) Alprazolam 20160 Yes 2 [...] tab, PO, l Tablet 16:37: TID, 0 [place] [Xanax] 00 Refill(s) Alprazolam 20160 Yes 2 mg = 1 [facility] 2 MG Oral -07 tab, PO, l Tablet 16:37: TID, 0 [place] [Xanax] 00 Refill(s) Alprazolam 20160 Yes 2 mg = 1 [facility] 2 MG Oral 11-07 tab, PO, l Tablet 16:37: TID, 0 [place] [Xanax] 00 Refill(s) Alprazolam 20160 Yes 2 mg = 1 [facility] 2 MG Oral 07 tab, PO, l Tablet 16:37: TID, 0 [place] [Xanax] 00 Refill(s) Alprazolam 20160 Yes 2 mg = 1 [facility] 2 MG Oral 07 tab, PO, l Tablet 16:37: TID, 0 [place] [Xanax] 00 Refill(s) Alprazolam 20160 Yes 2 mg = 1 [facility] 2 MG Oral 11-07 tab, PO, l Tablet 16:37: TID, 0 [place] [Xanax] 00 Refill(s) Alprazolam 20160 Yes 2 [...] tab, PO, l Tablet 16:37: TID, 0 [place] [Xanax] 00 Refill(s) Alprazolam 0 Yes 2 mg = 1 [facility] 2 MG Oral -07 tab, PO, l Tablet 16:37: TID, 0 [place] [Xanax] 00 Refill(s) Alprazolam 20160 Yes 2 mg = 1 [facility] 2 MG Oral -07 tab, PO, l Tablet 16:37: TID, 0 [place] [Xanax] 00 Refill(s) Alprazolam 20160 Yes 2 mg = 1 [facility] 2 MG Oral 11-07 tab, PO, l Tablet 16:37: TID, 0 [place] [Xanax] 00 Refill(s) Alprazolam 20160 Yes 2 mg = 1 [facility] 2 MG Oral 11-07 tab, PO, l Tablet 16:37: TID, 0 [place] [Xanax] 00 Refill(s) Alprazolam 20160 Yes 2 mg = 1 [facility] 2 MG Oral 11-07 tab, PO, l Tablet 16:37: TID, 0 [place] [Xanax] 00 Refill(s) Alprazolam 2016 Yes 2 [...] tab, PO, l Tablet 16:37: TID, 0 [place] [Xanax] 00 Refill(s) Alprazolam 20160 Yes 2 mg = 1 [facility] 2 MG Oral -07 tab, PO, l Tablet 16:37: TID, 0 [place] [Xanax] 00 Refill(s) Alprazolam 2016 Yes 2 mg = 1 [facility] 2 MG Oral -07 tab, PO, l Tablet 16:37: TID, 0 [place] [Xanax] 00 Refill(s) Alprazolam 20160 Yes 2 mg = 1 [facility] 2 MG Oral 11-07 tab, PO, l Tablet 16:37: TID, 0 [place] [Xanax] 00 Refill(s) Alprazolam 20160 Yes 2 mg = 1 [facility] 2 MG Oral 11-07 tab, PO, l Tablet 16:37: TID, 0 [place] [Xanax] 00 Refill(s) Alprazolam 20160 Yes 2 mg = 1 [facility] 2 MG Oral 11-07 tab, PO, l Tablet 16:37: TID, 0 [place] [Xanax] 00 Refill(s) Alprazolam 20160 Yes 2 mg = 1 [facility] 2 MG Oral 11-07 tab, PO, l Tablet 16:37: TID, 0 [place] [Xanax] 00 Refill(s) Alprazolam 2016 Yes 2 [...] tab, PO, l Tablet 16:37: TID, 0 [place] [Xanax] 00 Refill(s) Alprazolam 20160 Yes 2 [...] tab, PO, l Tablet 16:37: TID, 0 [place] [Xanax] 00 Refill(s) Alprazolam 20160 Yes 2 [...] tab, PO, l Tablet 16:37: TID, 0 [place] [Xanax] 00 Refill(s) Alprazolam 0 Yes 2 mg = 1 [facility] 2 MG Oral -07 tab, PO, l Tablet 16:37: TID, 0 [place] [Xanax] 00 Refill(s) Alprazolam 2016 Yes 2 mg = 1 [facility] 2 MG Oral -07 tab, PO, l Tablet 16:37: TID, 0 [place] [Xanax] 00 Refill(s) Alprazolam 0 Yes 2 mg = 1 [facility] 2 MG Oral -07 tab, PO, l Tablet 16:37: TID, 0 [place] [Xanax] 00 Refill(s) Alprazolam 0 Yes 2 mg = 1 [facility] 2 MG Oral 1-07 tab, PO, l Tablet 16:37: TID, 0 [place] [Xanax] 00 Refill(s) Alprazolam Yes 2 mg = 1 [facility] 2 MG Oral 1-07 tab, PO, l Tablet 16:37: TID, 0 [place] [Xanax] 00 Refill(s) Alprazolam Yes 2 mg = 1 [facility] 2 MG Oral -07 tab, PO, l Tablet 16:37: TID, 0 [place] [Xanax] 00 Refill(s) Alprazolam Yes 2 mg = 1 [facility] 2 MG Oral -07 tab, PO, l Tablet 16:37: TID, 0 [place] [Xanax] 00 Refill(s) Alprazolam Yes 2 mg [...] ermann Bitartrate 00 10 MG Oral Tablet [[place] 10/325] Acetaminoph Yes 1 tab, PO, [facility] en 325 MG / -07 BID, 0 l Hydrocodone 16:19: Refill(s) H ermann Bitartrate 00 10 MG Oral Tablet [[place] 10/325] Acetaminoph Yes 1 tab, PO, [facility] 325 MG / -07 BID, 0 l Hydrocodone 16:19: Refill(s) H [place] Bitartrate 00 10 MG Oral Tablet [[place] 10/325] Acetaminoph Yes 1 tab, PO, [facility] 325 MG / -07 BID, 0 l Hydrocodone 16:19: Refill(s) [facility] Bitartrate 00 10 MG Oral Tablet [[place] 10/325] Acetaminoph Yes 1 tab, PO, Memoria en 325 MG / -07 BID, 0 l Hydrocodone 16:19: Refill(s) [facility] Bitartrate 00 10 MG Oral Tablet [[place] 10/325] Acetaminoph Yes 1 tab, PO, Memoria en 325 MG / -07 BID, 0 l Hydrocodone 16:19: Refill(s) [facility] Bitartrate 00 10 MG Oral Tablet [[place] 10/325] Acetaminoph Yes 1 tab, PO, Memoria en 325 MG / 1-07 BID, 0 l Hydrocodone 16:19: Refill(s) [facility] Bitartrate 00 10 MG Oral Tablet [[place] 10/325] Acetaminoph Yes 1 tab, PO, Memoria en 325 MG / 1-07 BID, 0 l Hydrocodone 16:19: Refill(s) [facility] Bitartrate 00 10 MG Oral Tablet [[place] 10/325] Acetaminoph Yes 1 tab, PO, Memoria en 325 MG / -07 BID, 0 l Hydrocodone 16:19: Refill(s) [facility] Bitartrate 00 10 MG Oral Tablet [[place] 10/325] Acetaminoph Yes 1 tab, PO, Memoria en 325 MG / 1-07 BID, 0 l Hydrocodone 16:19: Refill(s) [facility] Bitartrate 00 10 MG Oral Tablet [[place] 10/325] Acetaminoph Yes 1 tab, PO, Memoria en 325 MG / 1-07 BID, 0 l Hydrocodone 16:19: Refill(s) [facility] Bitartrate 00 10 MG Oral Tablet [[place] 10/325] Acetaminoph Yes 1 tab, PO, Memoria en 325 MG / 1-07 BID, 0 l Hydrocodone 16:19: Refill(s) [facility] Bitartrate 00 10 MG Oral Tablet [[place] 10/325] Acetaminoph Yes 1 tab, PO, Memoria en 325 MG / 1-07 BID, 0 l Hydrocodone 16:19: Refill(s) [facility] Bitartrate 00 10 MG Oral Tablet [[place] 10/325] Acetaminoph Yes 1 tab, PO, Memoria en 325 MG / 1-07 BID, 0 l Hydrocodone 16:19: Refill(s) [facility] Bitartrate 00 10 MG Oral Tablet [[place] 10/325] Acetaminoph Yes 1 tab, PO, Memoria en 325 MG / 1-07 BID, 0 l Hydrocodone 16:19: Refill(s) [facility] Bitartrate 00 10 MG Oral Tablet [[place] 10/325] Acetaminoph Yes 1 tab, PO, Memoria en 325 MG / 1-07 BID, 0 l Hydrocodone 16:19: Refill(s) [facility] Bitartrate 00 10 MG Oral Tablet [[place] 10/325] Acetaminoph Yes 1 tab, PO, Memoria en 325 MG / 1-07 BID, 0 l Hydrocodone 16:19: Refill(s) [facility] Bitartrate 00 10 MG Oral Tablet [[place] 10/325] Acetaminoph Yes 1 tab, PO, Memoria en 325 MG / 1-07 BID, 0 l Hydrocodone 16:19: Refill(s) [facility] Bitartrate 00 10 MG Oral Tablet [[place] 10/325] Acetaminoph Yes 1 tab, PO, Memoria en 325 MG / 1-07 BID, 0 l Hydrocodone 16:19: Refill(s) [facility] Bitartrate 00 10 MG Oral Tablet [[place] 10/325] Acetaminoph Yes 1 tab, PO, Memoria en 325 MG / 1-07 BID, 0 l Hydrocodone 16:19: Refill(s) [facility] Bitartrate 00 10 MG Oral Tablet [[place] 10/325] Acetaminoph Yes 1 tab, PO, Memoria en 325 MG / 1-07 BID, 0 l Hydrocodone 16:19: Refill(s) [facility] Bitartrate 00 10 MG Oral Tablet [[place] 10/325] Acetaminoph Yes 1 tab, PO, Memoria en 325 MG / 1-07 BID, 0 l Hydrocodone 16:19: Refill(s) [facility] Bitartrate 00 10 MG Oral Tablet [[place] 10/325] Acetaminoph Yes 1 tab, PO, Memoria en 325 MG / 1-07 BID, 0 l Hydrocodone 16:19: Refill(s) [facility] Bitartrate 00 10 MG Oral Tablet [[place] 10/325] Acetaminoph Yes 1 tab, PO, Memoria en 325 MG / 1-07 BID, 0 l Hydrocodone 16:19: Refill(s) [facility] Bitartrate 00 10 MG Oral Tablet [[place] 10/325] Acetaminoph Yes 1 tab, PO, Memoria en 325 MG / 1-07 BID, 0 l Hydrocodone 16:19: Refill(s) [facility] Bitartrate 00 10 MG Oral Tablet [[place] 10/325] Acetaminoph Yes 1 tab, PO, Memoria en 325 MG / 1-07 BID, 0 l Hydrocodone 16:19: Refill(s) [facility] Bitartrate 00 10 MG Oral Tablet [[place] 10/325] Acetaminoph Yes 1 tab, PO, Memoria en 325 MG / 1-07 BID, 0 l Hydrocodone 16:19: Refill(s) [facility] Bitartrate 00 10 MG Oral Tablet [[place] 10/325] Acetaminoph Yes 1 tab, PO, Memoria en 325 MG / 1-07 BID, 0 l Hydrocodone 16:19: Refill(s) [facility] Bitartrate 00 10 MG Oral Tablet [[place] 10/325] Acetaminoph Yes 1 tab, PO, Memoria en 325 MG / 1-07 BID, 0 l Hydrocodone 16:19: Refill(s) [facility] Bitartrate 00 10 MG Oral Tablet [[place] 10/325] Acetaminoph Yes 1 tab, PO, Memoria en 325 MG / 1-07 BID, 0 l Hydrocodone 16:19: Refill(s) [facility] Bitartrate 00 10 MG Oral Tablet [[place] 10/325] Acetaminoph Yes 1 tab, PO, Memoria en 325 MG / 1-07 BID, 0 l Hydrocodone 16:19: Refill(s) [facility] Bitartrate 00 10 MG Oral Tablet [[place] 10/325] Acetaminoph Yes 1 tab, PO, Memoria en 325 MG / 1-07 BID, 0 l Hydrocodone 16:19: Refill(s) [facility] Bitartrate 00 10 MG Oral Tablet [[place] 10/325] Acetaminoph Yes 1 tab, PO, Memoria en 325 MG / 1-07 BID, 0 l Hydrocodone 16:19: Refill(s) [facility] Bitartrate 00 10 MG Oral Tablet [[place] 10/325] Acetaminoph Yes 1 tab, PO, Memoria en 325 MG / 1-07 BID, 0 l Hydrocodone 16:19: Refill(s) [facility] Bitartrate 00 10 MG Oral Tablet [[place] 10/325] Acetaminoph Yes 1 tab, PO, Memoria en 325 MG / 1-07 BID, 0 l Hydrocodone 16:19: Refill(s) H ermann Bitartrate 00 10 MG Oral Tablet [[place] 10/325] Acetaminoph Yes 1 tab, PO, Memoria en 325 MG / 1-07 BID, 0 l Hydrocodone 16:19: Refill(s) H [facility] Bitartrate 00 10 MG Oral Tablet [[place] 10/325] Acetaminoph Yes 1 tab, PO, Memoria en 325 MG / 1-07 BID, 0 l Hydrocodone 16:19: Refill(s) H [facility] Bitartrate 00 10 MG Oral Tablet [[place] 10/325] Acetaminoph Yes 1 tab, PO, Memoria en 325 MG / 1-07 BID, 0 l Hydrocodone 16:19: Refill(s) H [facility] Bitartrate 00 10 MG Oral Tablet [[place] 10/325] Acetaminoph Yes 1 tab, PO, Memoria en 325 MG / 1-07 BID, 0 l Hydrocodone 16:19: Refill(s) H [facility] Bitartrate 00 10 MG Oral Tablet [[place] 10/325] Acetaminoph Yes 1 tab, PO, Memoria en 325 MG / 1-07 BID, 0 l Hydrocodone 16:19: Refill(s) H [facility] Bitartrate 00 10 MG Oral Tablet [[place] 10/325] Acetaminoph Yes 1 tab, PO, Memoria en 325 MG / 1-07 BID, 0 l Hydrocodone 16:19: Refill(s) H [facility] Bitartrate 00 10 MG Oral Tablet [[place] 10/325] Acetaminoph Yes 1 tab, PO, Memoria en 325 MG / 1-07 BID, 0 l Hydrocodone 16:19: Refill(s) H [facility] Bitartrate 00 10 MG Oral Tablet [[place] 10/325] Acetaminoph Yes 1 tab, PO, Memoria en 325 MG / 1-07 BID, 0 l Hydrocodone 16:19: Refill(s) H [facility] Bitartrate 00 10 MG Oral Tablet [[place] 10/325] Acetaminoph Yes 1 tab, PO, Memoria en 325 MG / 1-07 BID, 0 l Hydrocodone 16:19: Refill(s) H ermann Bitartrate 00 10 MG Oral Tablet [[place] 10/325] Acetaminoph Yes 1 tab, PO, Memoria en 325 MG / 1-07 BID, 0 l Hydrocodone 16:19: Refill(s) H ermann Bitartrate 00 10 MG Oral Tablet [[place] 10/325] Acetaminoph Yes 1 tab, PO, Memoria en 325 MG / 1-07 BID, 0 l Hydrocodone 16:19: Refill(s) H ermann Bitartrate 00 10 MG Oral Tablet [[place] 10/325] Acetaminoph Yes 1 tab, PO, Memoria en 325 MG / 1-07 BID, 0 l Hydrocodone 16:19: Refill(s) H ermann Bitartrate 00 10 MG Oral Tablet [[place] 10/325] Acetaminoph Yes 1 tab, PO, Memoria en 325 MG / 1-07 BID, 0 l Hydrocodone 16:19: Refill(s) H ermann Bitartrate 00 10 MG Oral Tablet [[place] 10/325] Acetaminoph Yes 1 tab, PO, Memoria en 325 MG / 1-07 BID, 0 l Hydrocodone 16:19: Refill(s) H ermann Bitartrate 00 10 MG Oral Tablet [[place] 10/325] Acetaminoph Yes 1 tab, PO, Memoria en 325 MG / 1-07 BID, 0 l Hydrocodone 16:19: Refill(s) H ermann Bitartrate 00 10 MG Oral Tablet [[place] 10/325] Acetaminoph Yes 1 tab, PO, Memoria en 325 MG / 1-07 BID, 0 l Hydrocodone 16:19: Refill(s) H ermann Bitartrate 00 10 MG Oral Tablet [[place] 10/325] Acetaminoph Yes 1 tab, PO, Memoria en 325 MG / 1-07 BID, 0 l Hydrocodone 16:19: Refill(s) H ermann Bitartrate 00 10 MG Oral Tablet [[place] 10/325] Acetaminoph Yes 1 tab, PO, Memoria en 325 MG / 1-07 BID, 0 l Hydrocodone 16:19: Refill(s) H ermann Bitartrate 00 10 MG Oral Tablet [[place] 10/325] Acetaminoph Yes 1 tab, PO, Memoria en 325 MG / 1-07 BID, 0 l Hydrocodone 16:19: Refill(s) H ermann Bitartrate 00 10 MG Oral Tablet [[place] 10/325] Acetaminoph Yes 1 tab, PO, Memoria en 325 MG / 1-07 BID, 0 l Hydrocodone 16:19: Refill(s) H ermann Bitartrate 00 10 MG Oral Tablet [[place] 10/325] Acetaminoph Yes 1 tab, PO, Memoria en 325 MG / 1-07 BID, 0 l Hydrocodone 16:19: Refill(s) H ermann Bitartrate 00 10 MG Oral Tablet [[place] 10/325] Acetaminoph Yes 1 tab, PO, Memoria en 325 MG / 1-07 BID, 0 l Hydrocodone 16:19: Refill(s) H ermann Bitartrate 00 10 MG Oral Tablet [[place] 10/325] Acetaminoph Yes 1 tab, PO, Memoria en 325 MG / -07 BID, 0 l Hydrocodone 16:19: Refill(s) H ermann Bitartrate 00 10 MG Oral Tablet [[place] 10/325] Acetaminoph Yes 1 tab, PO, Memoria en 325 MG / -07 BID, 0 l Hydrocodone 16:19: Refill(s) H ermann Bitartrate 00 10 MG Oral Tablet [[place] 10/325] Acetaminoph Yes 1 tab, PO, Memoria en 325 MG / -07 BID, 0 l Hydrocodone 16:19: Refill(s) H ermann Bitartrate 00 10 MG Oral Tablet [[place] 10/325] Acetaminoph Yes 1 tab, PO, Memoria en 325 MG / -07 BID, 0 l Hydrocodone 16:19: Refill(s) H ermann Bitartrate 00 10 MG Oral Tablet [[place] 10/325] Acetaminoph Yes 1 tab, PO, Memoria en 325 MG / 1-07 BID, 0 l Hydrocodone 16:19: Refill(s) H ermann Bitartrate 00 10 MG Oral Tablet [[place] 10/325] Acetaminoph Yes 1 tab, PO, Memoria en 325 MG / 1-07 BID, 0 l Hydrocodone 16:19: Refill(s) H ermann Bitartrate 00 10 MG Oral Tablet [[place] 10/325] Acetaminoph Yes 1 tab, PO, Memoria en 325 MG / 1-07 BID, 0 l Hydrocodone 16:19: Refill(s) H ermann Bitartrate 00 10 MG Oral Tablet [[place] 10/325] Acetaminoph Yes 1 tab, PO, Memoria en 325 MG / 11-07 BID, 0 l Hydrocodone 16:19: Refill(s) H ermann Bitartrate 00 10 MG Oral Tablet [[place] 10/325] Acetaminoph Yes 1 tab, PO, Memoria en 325 MG / 11-07 BID, 0 l Hydrocodone 16:19: Refill(s) H ermann Bitartrate 00 10 MG Oral Tablet [[place] 10/325] tizanidine Yes 4 mg = 1 [...] PO, l Capsule 16:18: BID, # 90 [place] nn [Zanaflex] 00 cap, 0 Refill(s) Zolpidem [...] cap, PO, l capsule 16:17: BID, 0 [place] 00 Refill(s) cephalexin 2016-0 Yes 500 mg = 1 M emoria 500 mg oral 1-07 cap, PO, l capsule 16:17: BID, 0 [place] 00 Refill(s) cephalexin 2016-0 Yes 500 mg = 1 M emoria 500 mg oral 1-07 cap, PO, l capsule 16:17: BID, 0 [place] 00 Refill(s) cephalexin 2016-0 Yes 500 mg = 1 M emoria 500 mg oral 1-07 cap, PO, l capsule 16:17: BID, 0 [place] 00 Refill(s) cephalexin 2016-0 Yes 500 mg = 1 M emoria 500 mg oral 1-07 cap, PO, l capsule 16:17: BID, 0 [place] 00 Refill(s) cephalexin 2016-0 Yes 500 mg = 1 M emoria 500 mg oral 1-07 cap, PO, l capsule 16:17: BID, 0 [place] 00 Refill(s) cephalexin 2016-0 Yes 500 mg = 1 M emoria 500 mg oral 1-07 cap, PO, l capsule 16:17: BID, 0 [place] 00 Refill(s) cephalexin 2016-0 Yes 500 mg = 1 M emoria 500 mg oral 1-07 cap, PO, l capsule 16:17: BID, 0 [place] 00 Refill(s) cephalexin 2016-0 Yes 500 mg = 1 M emoria 500 mg oral 1-07 cap, PO, l capsule 16:17: BID, 0 [place] 00 Refill(s) cephalexin 2016-0 Yes 500 mg = 1 M emoria 500 mg oral 1-07 cap, PO, l capsule 16:17: BID, 0 [place] 00 Refill(s) cephalexin 2016-0 Yes 500 mg = 1 M emoria 500 mg oral 1-07 cap, PO, l capsule 16:17: BID, 0 [place] 00 Refill(s) cephalexin 2016-0 Yes 500 mg = 1 M emoria 500 mg oral 1-07 cap, PO, l capsule 16:17: BID, 0 [place] 00 Refill(s) cephalexin 2016-0 Yes 500 mg = 1 M emoria 500 mg oral 1-07 cap, PO, l capsule 16:17: BID, 0 [place] 00 Refill(s) cephalexin 2016-0 Yes 500 mg [...] cap, PO, l capsule 16:17: BID, 0 [place] 00 Refill(s) cephalexin 2016-0 Yes 500 mg = 1 M emoria 500 mg oral 1-07 cap, PO, l capsule 16:17: BID, 0 [place] 00 Refill(s) cephalexin 2016-0 Yes 500 mg = 1 M emoria 500 mg oral 1-07 cap, PO, l capsule 16:17: BID, 0 [place] 00 Refill(s) cephalexin 2016-0 Yes 500 mg = 1 M emoria 500 mg oral 1-07 cap, PO, l capsule 16:17: BID, 0 [place] 00 Refill(s) cephalexin 2016-0 Yes 500 mg [...] cap, PO, l capsule 16:17: BID, 0 [place] 00 Refill(s) cephalexin 2016-0 Yes 500 mg = 1 M emoria 500 mg oral 1-07 cap, PO, l capsule 16:17: BID, 0 [place] 00 Refill(s) cephalexin 2016-0 Yes 500 mg = 1 M emoria 500 mg oral 1-07 cap, PO, l capsule 16:17: BID, 0 [place] 00 Refill(s) cephalexin 2016-0 Yes 500 mg = 1 M emoria 500 mg oral 1-07 cap, PO, l capsule 16:17: BID, 0 [place] 00 Refill(s) cephalexin 2016-0 Yes 500 mg = 1 M emoria 500 mg oral 1-07 cap, PO, l capsule 16:17: BID, 0 [place] 00 Refill(s) cephalexin 2016-0 Yes 500 mg = 1 M emoria 500 mg oral 1-07 cap, PO, l capsule 16:17: BID, 0 [place] 00 Refill(s) cephalexin 2016-0 Yes 500 mg [...] cap, PO, l capsule 16:17: BID, 0 [place] 00 Refill(s) cephalexin 2016-0 Yes 500 mg = 1 M emoria 500 mg oral 1-07 cap, PO, l capsule 16:17: BID, 0 [place] 00 Refill(s) cephalexin 2016-0 Yes 500 mg = 1 M emoria 500 mg oral 1-07 cap, PO, l capsule 16:17: BID, 0 [place] 00 Refill(s) cephalexin 2016-0 Yes 500 mg = 1 M emoria 500 mg oral 1-07 cap, PO, l capsule 16:17: BID, 0 [place] 00 Refill(s) cephalexin 2016-0 Yes 500 mg [...] cap, PO, l capsule 16:17: BID, 0 [place] 00 Refill(s) cephalexin 2016-0 Yes 500 mg = 1 M emoria 500 mg oral 1-07 cap, PO, l capsule 16:17: BID, 0 [place] 00 Refill(s) cephalexin 2016-0 Yes 500 mg = 1 M emoria 500 mg oral 1-07 cap, PO, l capsule 16:17: BID, 0 [place] 00 Refill(s) cephalexin 2016-0 Yes 500 mg = 1 M emoria 500 mg oral 1-07 cap, PO, l capsule 16:17: BID, 0 [place] 00 Refill(s) cephalexin 2016-0 Yes 500 mg [...] cap, PO, l capsule 16:17: BID, 0 [place] 00 Refill(s) cephalexin 2016-0 Yes 500 mg [...] cap, PO, l capsule 16:17: BID, 0 [place] 00 Refill(s) cephalexin 2016-0 Yes 500 mg = 1 M emoria 500 mg oral 1-07 cap, PO, l capsule 16:17: BID, 0 [place] 00 Refill(s) cephalexin 2016-0 Yes 500 mg [...] cap, PO, l capsule 16:17: BID, 0 [place] 00 Refill(s) cephalexin 2016-0 Yes 500 mg = 1 M emoria 500 mg oral 1-07 cap, PO, l capsule 16:17: BID, 0 [place] 00 Refill(s) cephalexin 2016-0 Yes 500 mg = 1 M emoria 500 mg oral 1-07 cap, PO, l capsule 16:17: BID, 0 [place] 00 Refill(s) cephalexin 2016-0 Yes 500 mg = 1 M emoria 500 mg oral 1-07 cap, PO, l capsule 16:17: BID, 0 [place] 00 Refill(s) cephalexin 2015-0 Yes 500 mg = 1 M emoria 500 mg oral 1-07 cap, PO, l capsule 16:17: BID, 0 [place] 00 Refill(s) cephalexin 2015-0 Yes 500 mg = 1 M emoria 500 mg oral 1-07 cap, PO, l capsule 16:17: BID, 0 [place] 00 Refill(s) cephalexin 2016-0 Yes 500 mg = 1 M emoria 500 mg oral 1-07 cap, PO, l capsule 16:17: BID, 0 [place] 00 Refill(s) cephalexin 2016-0 Yes 500 mg = 1 M emoria 500 mg oral 1-07 cap, PO, l capsule 16:17: BID, 0 [place] 00 Refill(s) cephalexin 2016-0 Yes 500 mg = 1 M emoria 500 mg oral 1-07 cap, PO, l capsule 16:17: BID, 0 [place] 00 Refill(s) cephalexin 2016-0 Yes 500 mg = 1 M emoria 500 mg oral 1-07 cap, PO, l capsule 16:17: BID, 0 [place] 00 Refill(s) cephalexin 2016-0 Yes 500 mg = 1 M emoria 500 mg oral 1-07 cap, PO, l capsule 16:17: BID, 0 [place] 00 Refill(s) duloxetine Yes 60 mg = 1 Me moria 60 MG 1-07 cap, PO, l Enteric 16:16: Daily, 0 [place] n Coated 00 Refill(s) Capsule [Cymbalta] atorvastati Yes 40 mg = 1 M emoria n 40 MG 1-07 tab, PO, l Oral Tablet 16:16: Bedtime, 0 [place] [Lipitor] 00 Refill(s) duloxetine Yes 60 mg = 1 Me moria 60 MG 1-07 cap, PO, l Enteric 16:16: Daily, 0 [place] n Coated 00 Refill(s) Capsule [Cymbalta] atorvastati Yes 40 mg = 1 M emoria n 40 MG 1-07 tab, PO, l Oral Tablet 16:16: Bedtime, 0 [place] [Lipitor] 00 Refill(s) duloxetine Yes 60 mg = 1 Me moria 60 MG 1-07 cap, PO, l Enteric 16:16: Daily, 0 [place] n Coated 00 Refill(s) Capsule [Cymbalta] atorvastati Yes 40 mg = 1 M emoria n 40 MG 1-07 tab, PO, l Oral Tablet 16:16: Bedtime, 0 [place] [Lipitor] 00 Refill(s) duloxetine Yes 60 mg = 1 Me moria 60 MG 1-07 cap, PO, l Enteric 16:16: Daily, 0 [place] n Coated 00 Refill(s) Capsule [Cymbalta] atorvastati Yes 40 mg = 1 M emoria n 40 MG 1-07 tab, PO, l Oral Tablet 16:16: Bedtime, 0 [place] [Lipitor] 00 Refill(s) duloxetine Yes 60 mg = 1 Me moria 60 MG 1-07 cap, PO, l Enteric 16:16: Daily, 0 [place] n Coated 00 Refill(s) Capsule [Cymbalta] atorvastati Yes 40 mg = 1 M emoria n 40 MG 1-07 tab, PO, l Oral Tablet 16:16: Bedtime, 0 [place] [Lipitor] 00 Refill(s) duloxetine Yes 60 mg = 1 Me moria 60 MG 1-07 cap, PO, l Enteric 16:16: Daily, 0 [place] n Coated 00 Refill(s) Capsule [Cymbalta] atorvastati Yes 40 mg = 1 M emoria n 40 MG 1-07 tab, PO, l Oral Tablet 16:16: Bedtime, 0 [place] [Lipitor] 00 Refill(s) duloxetine Yes 60 mg [...] Bedtime, 0 [place] [Lipitor] 00 Refill(s) duloxetine 2016-0 Yes 60 mg = 1 Me moria 60 MG 1-07 cap, PO, l Enteric 16:16: Daily, 0 [place] Coated 00 Refill(s) Capsule [Cymbalta] atorvastati Yes 40 mg = 1 M emoria n 40 MG 1-07 tab, PO, l Oral Tablet 16:16: Bedtime, 0 [place] [Lipitor] 00 Refill(s) duloxetine 2016 Yes 60 mg = 1 Me moria 60 MG 1-07 cap, PO, l Enteric 16:16: Daily, 0 [place] Co[place] 00 Refill(s) Capsule [Cymbalta] atorvastati Yes 40 mg = 1 M emoria n 40 MG 1-07 tab, PO, l Oral Tablet 16:16: Bedtime, 0 [place] [Lipitor] 00 Refill(s) duloxetine Yes 60 mg [...] PO, l Oral Tablet 16:16: Bedtime, 0 [place] [Lipitor] 00 Refill(s) duloxetine Yes 60 mg [...] PO, l Oral Tablet 16:16: Bedtime, 0 [place] [Lipitor] 00 Refill(s) duloxetine Yes 60 mg = 1 Me moria 60 MG 1-07 cap, PO, l Enteric 16:16: Daily, 0 [place] Coated 00 Refill(s) Capsule [Cymbalta] atorvastati Yes 40 mg = 1 M emoria n 40 MG 1-07 tab, PO, l Oral Tablet 16:16: Bedtime, 0 [place] [Lipitor] 00 Refill(s) duloxetine Yes 60 mg = 1 Me moria 60 MG 1-07 cap, PO, l Enteric 16:16: Daily, 0 [place] Coated 00 Refill(s) Capsule [Cymbalta] atorvastati Yes 40 mg = 1 M emoria n 40 MG 1-07 tab, PO, l Oral Tablet 16:16: Bedtime, 0 [place] [Lipitor] 00 Refill(s) duloxetine Yes 60 mg [...] PO, l Oral Tablet 16:16: Bedtime, 0 [place] [Lipitor] 00 Refill(s) duloxetine Yes 60 mg = 1 Me moria 60 MG 1-07 cap, PO, l Enteric 16:16: Daily, 0 [place] Coated 00 Refill(s) Capsule [Cymbalta] atorvastati Yes 40 mg = 1 M emoria n 40 MG 1-07 tab, PO, l Oral Tablet 16:16: Bedtime, 0 [place] [Lipitor] 00 Refill(s) duloxetine Yes 60 mg [...] PO, l Oral Tablet 16:16: Bedtime, 0 [place] [Lipitor] 00 Refill(s) duloxetine Yes 60 mg = 1 Me moria 60 MG 1-07 cap, PO, l Enteric 16:16: Daily, 0 [place] Coated 00 Refill(s) Capsule [Cymbalta] atorvastati Yes 40 mg = 1 M emoria n 40 MG 1-07 tab, PO, l Oral Tablet 16:16: Bedtime, 0 [place] [Lipitor] 00 Refill(s) duloxetine Yes 60 mg [...] PO, l Oral Tablet 16:16: Bedtime, 0 [place] [Lipitor] 00 Refill(s) duloxetine Yes 60 mg = 1 Me moria 60 MG 1-07 cap, PO, l Enteric 16:16: Daily, 0 [place] Coated 00 Refill(s) Capsule [Cymbalta] atorvastati Yes 40 mg = 1 M emoria n 40 MG 1-07 tab, PO, l Oral Tablet 16:16: Bedtime, 0 [place] [Lipitor] 00 Refill(s) duloxetine Yes 60 mg [...] PO, l Oral Tablet 16:16: Bedtime, 0 [place] [Lipitor] 00 Refill(s) duloxetine Yes 60 mg [...] PO, l Oral Tablet 16:16: Bedtime, 0 [place] [Lipitor] 00 Refill(s) duloxetine Yes 60 mg = 1 Me moria 60 MG 1-07 cap, PO, l Enteric 16:16: Daily, 0 [place] Coated 00 Refill(s) Capsule [Cymbalta] atorvastati Yes 40 mg = 1 M emoria n 40 MG 1-07 tab, PO, l Oral Tablet 16:16: Bedtime, 0 [place] [Lipitor] 00 Refill(s) duloxetine Yes 60 mg [...] PO, l Oral Tablet 16:16: Bedtime, 0 [place] [Lipitor] 00 Refill(s) duloxetine Yes 60 mg = 1 Me moria 60 MG 1-07 cap, PO, l Enteric 16:16: Daily, 0 [place] Co[place] 00 Refill(s) Capsule [Cymbalta] atorvastati Yes 40 mg = 1 M emoria n 40 MG 1-07 tab, PO, l Oral Tablet 16:16: Bedtime, 0 [place] [Lipitor] 00 Refill(s) duloxetine Yes 60 mg = 1 Me moria 60 MG 1-07 cap, PO, l Enteric 16:16: Daily, 0 [place] Co[place] 00 Refill(s) Capsule [Cymbalta] atorvastati Yes 40 mg = 1 M emoria n 40 MG 1-07 tab, PO, l Oral Tablet 16:16: Bedtime, 0 [place] [Lipitor] 00 Refill(s) duloxetine Yes 60 mg [...] PO, l Oral Tablet 16:16: Bedtime, 0 [place] [Lipitor] 00 Refill(s) duloxetine Yes 60 mg [...] PO, l Oral Tablet 16:16: Bedtime, 0 [place] [Lipitor] 00 Refill(s) duloxetine Yes 60 mg [...] PO, l Oral Tablet 16:16: Bedtime, 0 [place] [Lipitor] 00 Refill(s) duloxetine Yes 60 mg [...] PO, l Oral Tablet 16:16: Bedtime, 0 [place] [Lipitor] 00 Refill(s) duloxetine Yes 60 mg = 1 Me moria 60 MG 1-07 cap, PO, l Enteric 16:16: Daily, 0 [place] Co[place] 00 Refill(s) Capsule [Cymbalta] atorvastati Yes 40 mg = 1 M emoria n 40 MG 1-07 tab, PO, l Oral Tablet 16:16: Bedtime, 0 [place] [Lipitor] 00 Refill(s) duloxetine Yes 60 mg = 1 Me mor[place] 60 MG 1-07 cap, PO, l Enteric 16:16: Daily, 0 [place] Co[place] 00 Refill(s) Capsule [Cymbalta] atorvastati Yes 40 mg = 1 M emoria n 40 MG 1-07 tab, PO, l Oral Tablet 16:16: Bedtime, 0 [place] [Lipitor] 00 Refill(s) duloxetine Yes 60 mg [...] PO, l Oral Tablet 16:16: Bedtime, 0 [place] [Lipitor] 00 Refill(s) duloxetine Yes 60 mg = 1 Me mor[place] 60 MG 1-07 cap, PO, l Enteric 16:16: Daily, 0 [place] Co[place] 00 Refill(s) Capsule [Cymbalta] atorvastati Yes 40 mg = 1 M emoria n 40 MG 1-07 tab, PO, l Oral Tablet 16:16: Bedtime, 0 [place] [Lipitor] 00 Refill(s) duloxetine Yes 60 mg [...] PO, l Oral Tablet 16:16: Bedtime, 0 [place] [Lipitor] 00 Refill(s) duloxetine Yes 60 mg = 1 Me mor[place] 60 MG 1-07 cap, PO, l Enteric 16:16: Daily, 0 [place] Co[place] 00 Refill(s) Capsule [Cymbalta] atorvastati Yes 40 mg = 1 M emoria n 40 MG 1-07 tab, PO, l Oral Tablet 16:16: Bedtime, 0 [place] [Lipitor] 00 Refill(s) duloxetine Yes 60 mg = 1 Me mor[place] 60 MG 1-07 cap, PO, l Enteric 16:16: Daily, 0 [place] Co[place] 00 Refill(s) Capsule [Cymbalta] atorvastati Yes 40 mg = 1 M emoria n 40 MG 1-07 tab, PO, l Oral Tablet 16:16: Bedtime, 0 [place] [Lipitor] 00 Refill(s) promethazin Yes 25 mg [...] 1-07 tab, PO, l tablet 16:15: QID-Before [place] Meals, 0 Refill(s) promethazin Yes 25 mg [...] 16:15: QID-Before [place] Meals, 0 Refill(s) promethazin 0 Yes 25 [...] 16:15: QID-Before [place] Meals, 0 Refill(s) promethazin 0 Yes 25 [...] 16:15: QID-Before [place] Meals, 0 Refill(s) promethazin 0 Yes 25 [...] 16:15: QID-Before [place] Meals, 0 Refill(s) promethazin 0 Yes 25 [...] 16:15: QID-Before [place] Meals, 0 Refill(s) promethazin 0 Yes 25 mg = 1 M emoria e 25 mg 1-07 tab, PO, l oral tablet 16:15: PRN, 0 Herm flakita 00 Refill(s) sucralfate 0 Yes 1 gm = 1 Mem oria 1 g oral 1-07 tab, PO, l tablet 16:15: QID-Before [place] Meals, 0 Refill(s) promethazin 0 Yes 25 mg = 1 M emoria e 25 mg 1-07 tab, PO, l oral tablet 16:15: PRN, 0 [place] fl[place] 00 Refill(s) sucralfate 0 Yes 1 gm = 1 Mem oria 1 g oral 1-07 tab, PO, l tablet 16:15: QID-Before [place] nn Meals, 0 Refill(s) Colchicine 0 Yes 0.6 mg = 1 M emoria 0.6 MG Oral 1-07 tab, PO, l Tablet 16:14: PRN, 0 [place] [Colcrys] 00 Refill(s) Colchicine 0 Yes 0.6 mg = 1 M emoria 0.6 MG Oral 1-07 tab, PO, l Tablet 16:14: PRN, 0 [place] [Colcrys] 00 Refill(s) Colchicine 2016-0 Yes 0.6 mg = 1 M emoria 0.6 MG Oral 1-07 tab, PO, l Tablet 16:14: PRN, 0 [place] [Colcrys] 00 Refill(s) Colchicine 2016-0 Yes 0.6 mg = 1 M emoria 0.6 MG Oral 1-07 tab, PO, l Tablet 16:14: PRN, 0 [place] [Colcrys] 00 Refill(s) Colchicine 2016-0 Yes 0.6 [...] tab, PO, l Tablet 16:14: PRN, 0 [place] [Colcrys] 00 Refill(s) Colchicine 2016-0 Yes 0.6 [...] tab, PO, l Tablet 16:14: PRN, 0 [place] [Colcrys] 00 Refill(s) Colchicine 2016-0 Yes 0.6 mg = 1 M emoria 0.6 MG Oral 1-07 tab, PO, l Tablet 16:14: PRN, 0 [place] [Colcrys] 00 Refill(s) Colchicine 2016-0 Yes 0.6 mg = 1 M emoria 0.6 MG Oral 1-07 tab, PO, l Tablet 16:14: PRN, 0 [place] [Colcrys] 00 Refill(s) Colchicine 2016-0 Yes 0.6 mg = 1 M emoria 0.6 MG Oral 1-07 tab, PO, l Tablet 16:14: PRN, 0 [place] [Colcrys] 00 Refill(s) Colchicine 2016-0 Yes 0.6 [...] tab, PO, l Tablet 16:14: PRN, 0 [place] [Colcrys] 00 Refill(s) Colchicine 2016-0 Yes 0.6 mg = 1 M emoria 0.6 MG Oral 1-07 tab, PO, l Tablet 16:14: PRN, 0 [place] [Colcrys] 00 Refill(s) Colchicine 2016-0 Yes 0.6 mg = 1 M emoria 0.6 MG Oral 1-07 tab, PO, l Tablet 16:14: PRN, 0 [place] [Colcrys] 00 Refill(s) Colchicine 2016-0 Yes 0.6 mg = 1 M emoria 0.6 MG Oral 1-07 tab, PO, l Tablet 16:14: PRN, 0 [place] [Colcrys] 00 Refill(s) Colchicine 2016-0 Yes 0.6 mg = 1 M emoria 0.6 MG Oral 1-07 tab, PO, l Tablet 16:14: PRN, 0 [place] [Colcrys] 00 Refill(s) Colchicine 2016-0 Yes 0.6 [...] tab, PO, l Tablet 16:14: PRN, 0 [place] [Colcrys] 00 Refill(s) Colchicine 2016-0 Yes 0.6 [...] tab, PO, l Tablet 16:14: PRN, 0 [place] [Colcrys] 00 Refill(s) Colchicine 2016-0 Yes 0.6 mg = 1 M emoria 0.6 MG Oral 1-07 tab, PO, l Tablet 16:14: PRN, 0 [place] [Colcrys] 00 Refill(s) Colchicine 2016-0 Yes 0.6 mg = 1 M emoria 0.6 MG Oral 1-07 tab, PO, l Tablet 16:14: PRN, 0 [place] [Colcrys] 00 Refill(s) Colchicine 2016-0 Yes 0.6 mg = 1 M emoria 0.6 MG Oral 1-07 tab, PO, l Tablet 16:14: PRN, 0 [place] [Colcrys] 00 Refill(s) Colchicine 2016-0 Yes 0.6 mg = 1 M emoria 0.6 MG Oral 1-07 tab, PO, l Tablet 16:14: PRN, 0 [place] [Colcrys] 00 Refill(s) Colchicine 2016-0 Yes 0.6 mg = 1 M emoria 0.6 MG Oral 1-07 tab, PO, l Tablet 16:14: PRN, 0 [place] [Colcrys] 00 Refill(s) Colchicine 2016-0 Yes 0.6 mg = 1 M emoria 0.6 MG Oral 1-07 tab, PO, l Tablet 16:14: PRN, 0 [place] [Colcrys] 00 Refill(s) Colchicine 2016-0 Yes 0.6 [...] tab, PO, l Tablet 16:14: PRN, 0 [place] [Colcrys] 00 Refill(s) Colchicine 2016-0 Yes 0.6 mg = 1 M emoria 0.6 MG Oral 1-07 tab, PO, l Tablet 16:14: PRN, 0 [place] [Colcrys] 00 Refill(s) Colchicine 2016-0 Yes 0.6 [...] tab, PO, l Tablet 16:14: PRN, 0 [place] [Colcrys] 00 Refill(s) Colchicine 2016-0 Yes 0.6 mg = 1 M emoria 0.6 MG Oral 1-07 tab, PO, l Tablet 16:14: PRN, 0 [place] [Colcrys] 00 Refill(s) Colchicine 2016-0 Yes 0.6 mg = 1 M emoria 0.6 MG Oral 1-07 tab, PO, l Tablet 16:14: PRN, 0 [place] [Colcrys] 00 Refill(s) Colchicine 2016-0 Yes 0.6 mg = 1 M emoria 0.6 MG Oral 1-07 tab, PO, l Tablet 16:14: PRN, 0 [place] [Colcrys] 00 Refill(s) Colchicine 2016-0 Yes 0.6 mg = 1 M emoria 0.6 MG Oral 1-07 tab, PO, l Tablet 16:14: PRN, 0 [place] [Colcrys] 00 Refill(s) Colchicine 2016-0 Yes 0.6 mg = 1 M emoria 0.6 MG Oral 1-07 tab, PO, l Tablet 16:14: PRN, 0 [place] [Colcrys] 00 Refill(s) Colchicine 2016-0 Yes 0.6 mg = 1 M emoria 0.6 MG Oral 1-07 tab, PO, l Tablet 16:14: PRN, 0 [place] [Colcrys] 00 Refill(s) Colchicine 2016-0 Yes 0.6 mg = 1 M emoria 0.6 MG Oral 1-07 tab, PO, l Tablet 16:14: PRN, 0 [place] [Colcrys] 00 Refill(s) Colchicine 2016-0 Yes 0.6 [...] tab, PO, l Tablet 16:14: PRN, 0 [place] [Colcrys] 00 Refill(s) Colchicine 2016-0 Yes 0.6 [...] tab, PO, l Tablet 16:14: PRN, 0 [place] [Colcrys] 00 Refill(s) Colchicine 2016-0 Yes 0.6 mg = 1 M emoria 0.6 MG Oral 1-07 tab, PO, l Tablet 16:14: PRN, 0 [place] [Colcrys] 00 Refill(s) Colchicine 2016-0 Yes 0.6 mg = 1 M emoria 0.6 MG Oral 1-07 tab, PO, l Tablet 16:14: PRN, 0 [place] [Colcrys] 00 Refill(s) Colchicine 2016-0 Yes 0.6 mg = 1 M emoria 0.6 MG Oral 1-07 tab, PO, l Tablet 16:14: PRN, 0 [place] [Colcrys] 00 Refill(s) Colchicine 2016-0 Yes 0.6 mg = 1 M emoria 0.6 MG Oral 1-07 tab, PO, l Tablet 16:14: PRN, 0 [place] [Colcrys] 00 Refill(s) Colchicine 2016-0 Yes 0.6 mg = 1 M emoria 0.6 MG Oral 1-07 tab, PO, l Tablet 16:14: PRN, 0 [place] [Colcrys] 00 Refill(s) Colchicine 2016-0 Yes 0.6 mg = 1 M emoria 0.6 MG Oral 1-07 tab, PO, l Tablet 16:14: PRN, 0 [place] [Colcrys] 00 Refill(s) Colchicine 2016-0 Yes 0.6 mg = 1 M emoria 0.6 MG Oral 1-07 tab, PO, l Tablet 16:14: PRN, 0 [place] [Colcrys] 00 Refill(s) Colchicine 2016-0 Yes 0.6 mg = 1 M emoria 0.6 MG Oral 1-07 tab, PO, l Tablet 16:14: PRN, 0 [place] [Colcrys] 00 Refill(s) Colchicine 2016-0 Yes 0.6 mg = 1 M emoria 0.6 MG Oral 1-07 tab, PO, l Tablet 16:14: PRN, 0 [place] [Colcrys] 00 Refill(s) Colchicine 2016-0 Yes 0.6 [...] tab, PO, l tablet 16:13: Daily, 0 [place] 00 Refill(s) allopurinol 2016 Yes 300 mg = 1 [facility] 300 mg oral 1-07 tab, PO, l tablet 16:13: Daily, 0 [place] 00 Refill(s) allopurinol 20160 Yes 300 mg [...] tab, PO, l tablet 16:13: Daily, 0 [place] 00 Refill(s) allopurinol 2016-0 Yes 300 mg = 1 [facility] 300 mg oral 1-07 tab, PO, l tablet 16:13: Daily, 0 [place] 00 Refill(s) allopurinol 2015-0 Yes 300 mg = 1 [facility] 300 mg oral 1-07 tab, PO, l tablet 16:13: Daily, 0 [place] 00 Refill(s) allopurinol Yes 300 mg = 1 [facility] 300 mg oral 1-07 tab, PO, l tablet 16:13: Daily, 0 [place] 00 Refill(s) allopurinol Yes 300 mg = 1 [facility] 300 mg oral 1-07 tab, PO, l tablet 16:13: Daily, 0 [place] 00 Refill(s) allopurinol Yes 300 mg = 1 [facility] 300 mg oral 1-07 tab, PO, l tablet 16:13: Daily, 0 [place] 00 Refill(s) allopurinol Yes 300 mg = 1 [facility] 300 mg oral 1-07 tab, PO, l tablet 16:13: Daily, 0 [place] 00 Refill(s) allopurinol Yes 300 mg = 1 [facility] 300 mg oral 1-07 tab, PO, l tablet 16:13: Daily, 0 [place] 00 Refill(s) allopurinol Yes 300 mg = 1 [facility] 300 mg oral 1-07 tab, PO, l tablet 16:13: Daily, 0 [place] 00 Refill(s) allopurinol Yes 300 mg = 1 [facility] 300 mg oral 1-07 tab, PO, l tablet 16:13: Daily, 0 [place] 00 Refill(s) allopurinol Yes 300 mg = 1 [facility] 300 mg oral 1-07 tab, PO, l tablet 16:13: Daily, 0 [place] 00 Refill(s) allopurinol Yes 300 mg = 1 [facility] 300 mg oral 1-07 tab, PO, l tablet 16:13: Daily, 0 [place] 00 Refill(s) allopurinol 0 Yes 300 mg = 1 [facility] 300 mg oral 1-07 tab, PO, l tablet 16:13: Daily, 0 [place] 00 Refill(s) allopurinol 0 Yes 300 mg = 1 [facility] 300 mg oral 1-07 tab, PO, l tablet 16:13: Daily, 0 [place] 00 Refill(s) allopurinol Yes 300 mg = 1 [facility] 300 mg oral 1-07 tab, PO, l tablet 16:13: Daily, 0 [place] 00 Refill(s) allopurinol 0 Yes 300 mg = 1 [facility] 300 mg oral 1-07 tab, PO, l tablet 16:13: Daily, 0 [place] 00 Refill(s) allopurinol Yes 300 mg = 1 [facility] 300 mg oral 1-07 tab, PO, l tablet 16:13: Daily, 0 [place] 00 Refill(s) allopurinol Yes 300 mg = [...] tab, PO, l tablet 16:13: Daily, 0 [place] 00 Refill(s) allopurinol Yes 300 mg = [...] tab, PO, l tablet 16:13: Daily, 0 [place] 00 Refill(s) allopurinol Yes 300 mg = 1 [facility] 300 mg oral 1-07 tab, PO, l tablet 16:13: Daily, 0 [place] 00 Refill(s) allopurinol Yes 300 mg = 1 [facility] 300 mg oral 1-07 tab, PO, l tablet 16:13: Daily, 0 [place] 00 Refill(s) allopurinol Yes 300 mg = 1 [facility] 300 mg oral 1-07 tab, PO, l tablet 16:13: Daily, 0 [place] 00 Refill(s) allopurinol Yes 300 mg = 1 [facility] 300 mg oral 1-07 tab, PO, l tablet 16:13: Daily, 0 [place] 00 Refill(s) allopurinol Yes 300 mg = 1 [facility] 300 mg oral 1-07 tab, PO, l tablet 16:13: Daily, 0 [place] 00 Refill(s) allopurinol Yes 300 mg = 1 [facility] 300 mg oral 1-07 tab, PO, l tablet 16:13: Daily, 0 [place] 00 Refill(s) allopurinol Yes 300 mg = 1 [facility] 300 mg oral 1-07 tab, PO, l tablet 16:13: Daily, 0 [place] 00 Refill(s) allopurinol Yes 300 mg = 1 [facility] 300 mg oral 1-07 tab, PO, l tablet 16:13: Daily, 0 [place] 00 Refill(s) allopurinol Yes 300 mg = 1 [facility] 300 mg oral 1-07 tab, PO, l tablet 16:13: Daily, 0 [place] 00 Refill(s) allopurinol Yes 300 mg = 1 [facility] 300 mg oral 1-07 tab, PO, l tablet 16:13: Daily, 0 [place] 00 Refill(s) allopurinol Yes 300 mg = 1 [facility] 300 mg oral 1-07 tab, PO, l tablet 16:13: Daily, 0 [place] 00 Refill(s) allopurinol Yes 300 mg = 1 [facility] 300 mg oral 1-07 tab, PO, l tablet 16:13: Daily, 0 [place] 00 Refill(s) allopurinol 0 Yes 300 mg = 1 [facility] 300 mg oral 1-07 tab, PO, l tablet 16:13: Daily, 0 [place] 00 Refill(s) allopurinol 0 Yes 300 mg [...] tab, PO, l tablet 16:13: Daily, 0 [place] 00 Refill(s) allopurinol Yes 300 mg = [...] tab, PO, l tablet 16:13: Daily, 0 [place] 00 Refill(s) allopurinol Yes 300 mg = 1 [facility] 300 mg oral 1-07 tab, PO, l tablet 16:13: Daily, 0 [place] 00 Refill(s) allopurinol Yes 300 mg = 1 [facility] 300 mg oral 1-07 tab, PO, l tablet 16:13: Daily, 0 [place] 00 Refill(s) allopurinol Yes 300 mg = [...] tab, PO, l tablet 16:13: Daily, 0 [place] 00 Refill(s) allopurinol Yes 300 mg = 1 [facility] 300 mg oral 1-07 tab, PO, l tablet 16:13: Daily, 0 [place] 00 Refill(s) allopurinol Yes 300 mg = 1 [facility] 300 mg oral 1-07 tab, PO, l tablet 16:13: Daily, 0 [place] 00 Refill(s) allopurinol Yes 300 mg = 1 [facility] 300 mg oral 1-07 tab, PO, l tablet 16:13: Daily, 0 [place] Refill(s) allopurinol 2015-0 Yes 300 mg = 1 [facility] 300 mg oral 1-07 tab, PO, l tablet 16:13: Daily, 0 [place] 00 Refill(s) allopurinol 0 Yes 300 mg = 1 [facility] 300 mg oral 1-07 tab, PO, l tablet 16:13: Daily, 0 [place] 00 Refill(s) allopurinol 0 Yes 300 mg = 1 [facility] 300 mg oral 1-07 tab, PO, l tablet 16:13: Daily, 0 [place] Refill(s) allopurinol Yes 300 mg = 1 [facility] 300 mg oral 1-07 tab, PO, l tablet 16:13: Daily, 0 [place] 00 Refill(s) allopurinol Yes 300 mg = 1 [facility] 300 mg oral 1-07 tab, PO, l tablet 16:13: Daily, 0 [place] 00 Refill(s) allopurinol Yes 300 mg = 1 [facility] 300 mg oral 1-07 tab, PO, l tablet 16:13: Daily, 0 [place] 00 Refill(s) allopurinol 0 Yes 300 mg = 1 [facility] 300 mg oral 1-07 tab, PO, l tablet 16:13: Daily, 0 [place] Refill(s) allopurinol 0 Yes 300 mg = [...] ia Home 1-07 0 l Medication 16:12: [place] Unknown 2015-0 Yes Refill(s) [facility] [...] 16:12: Unknown Yes Refill(s) [facility] - 0 l Medication 16:12: Unknown Yes Refill(s) [facility] - 0 l Medication 16:12: Unknown Yes Refill(s) [facility] 11-07 0 l Medication 16:12: Unknown Yes Refill(s) [facility] 11-07 0 l Medication 16:12: [place] 00 Unknown Yes Refill(s) [facility] 11-07 0 l Medication 16:12: pantoprazol Yes 40 [...] n [place] 00 Refill(s) Tablet [Protonix] pantoprazol 2015- Yes 40 mg = 1 M emoria [...] n [place] 00 Refill(s) Tablet [Protonix] pantoprazol 2015-0 Yes 40 mg = 1 M emoria e 40 MG 1-07 tab, PO, l Enteric 16:11: Daily, 0 [place] 00 Refill(s) Tablet [Protonix] pantoprazol 0 Yes 40 mg = 1 M emoria e 40 MG 1-07 tab, PO, l Enteric 16:11: Daily, 0 [place] Co[place] 00 Refill(s) Tablet [Protonix] pantoprazol [...] n Coated 00 Refill(s) Tablet [Protonix] Hydralazine 0 Yes 50 mg = 1 M [facility] Hydrochlori 1-07 tab, PO, l de 50 MG 16:10: TID, 0 [place] Oral Tablet 00 Refill(s) Hydralazine 2015-0 Yes 50 mg = 1 M [facility] Hydrochlori 1-07 tab, PO, l de 50 MG 16:10: TID, 0 [place] Oral Tablet 00 Refill(s) Hydralazine 0 Yes 50 mg = 1 M [facility] Hydrochlori 1-07 tab, PO, l de 50 MG 16:10: TID, 0 [place] Oral Tablet 00 Refill(s) Hydralazine 0 Yes [...] l de 50 MG 16:10: TID, 0 [place] Oral Tablet 00 Refill(s) Hydralazine 0 Yes 50 mg = 1 M [facility] Hydrochlori -07 tab, PO, l de 50 MG 16:10: TID, 0 [place] Oral Tablet 00 Refill(s) Hydralazine 0 Yes 50 mg = 1 M [facility] Hydrochlori -07 tab, PO, l de 50 MG 16:10: TID, 0 [place] Oral Tablet 00 Refill(s) Hydralazine 0 Yes 50 mg = 1 M [facility] Hydrochlori -07 tab, PO, l de 50 MG 16:10: TID, 0 [place] Oral Tablet 00 Refill(s) Hydralazine 0 Yes 50 mg = 1 M [facility] Hydrochlori -07 tab, PO, l de 50 MG 16:10: TID, 0 [place] Oral Tablet 00 Refill(s) Hydralazine 2016-0 Yes 50 mg = 1 M [facility] Hydrochlori 1-07 tab, PO, l de 50 MG 16:10: TID, 0 [place] Oral Tablet 00 Refill(s) Hydralazine 2016-0 Yes 50 mg = 1 M [facility] Hydrochlori 1-07 tab, PO, l de 50 MG 16:10: TID, 0 [place] Oral Tablet 00 Refill(s) Hydralazine 2015-0 Yes 50 mg = 1 M [facility] Hydrochlori -07 tab, PO, l de 50 MG 16:10: TID, 0 [place] Oral Tablet 00 Refill(s) Hydralazine 0 Yes [...] l de 50 MG 16:10: TID, 0 [place] Oral Tablet 00 Refill(s) Hydralazine 2015-0 Yes 50 mg = 1 M [facility] Hydrochlori -07 tab, PO, l de 50 MG 16:10: TID, 0 [place] Oral Tablet 00 Refill(s) Hydralazine 2015-0 Yes 50 mg = 1 M [facility] Hydrochlori -07 tab, PO, l de 50 MG 16:10: TID, 0 [place] Oral Tablet 00 Refill(s) Hydralazine 2015-0 Yes 50 mg = 1 M [facility] Hydrochlori -07 tab, PO, l de 50 MG 16:10: TID, 0 [place] Oral Tablet 00 Refill(s) Hydralazine 2015-0 Yes [...] l de 50 MG 16:10: TID, 0 [place] Oral Tablet 00 Refill(s) Hydralazine 2015-0 Yes 50 mg = 1 M [facility] Hydrochlori 11-07 tab, PO, l de 50 MG 16:10: TID, 0 [place] Oral Tablet 00 Refill(s) Hydralazine 2015-0 Yes [...] l de 50 MG 16:10: TID, 0 [place] Oral Tablet 00 Refill(s) Hydralazine 2016-0 Yes [...] l de 50 MG 16:10: TID, 0 [place] Oral Tablet 00 Refill(s) Hydralazine 0 Yes 50 mg = 1 M [facility] Hydrochlori 07 tab, PO, l de 50 MG 16:10: TID, 0 [place] Oral Tablet 00 Refill(s) Hydralazine 0 Yes 50 mg = 1 M [facility] Hydrochlori 11-07 tab, PO, l de 50 MG 16:10: TID, 0 [place] Oral Tablet 00 Refill(s) Hydralazine 0 Yes [...] l de 50 MG 16:10: TID, 0 [place] Oral Tablet 00 Refill(s) Hydralazine 0 Yes [...] l de 50 MG 16:10: TID, 0 [place] Oral Tablet 00 Refill(s) Hydralazine 2015-0 Yes 50 mg = 1 M [facility] Hydrochlori -07 tab, PO, l de 50 MG 16:10: TID, 0 [place] Oral Tablet 00 Refill(s) Hydralazine 0 Yes 50 mg = 1 M [facility] Hydrochlori 07 tab, PO, l de 50 MG 16:10: TID, 0 [place] Oral Tablet 00 Refill(s) Hydralazine 0 Yes [...] l de 50 MG 16:10: TID, 0 [place] Oral Tablet 00 Refill(s) Hydralazine 0 Yes 50 mg = 1 M [facility] Hydrochlori -07 tab, PO, l de 50 MG 16:10: TID, 0 [place] Oral Tablet 00 Refill(s) Hydralazine 2015-0 Yes 50 mg = 1 M [facility] Hydrochlori -07 tab, PO, l de 50 MG 16:10: TID, 0 [place] Oral Tablet 00 Refill(s) Hydralazine 2015-0 Yes [...] l de 50 MG 16:10: TID, 0 [place] Oral Tablet 00 Refill(s) Hydralazine 0 Yes 50 mg = 1 M [facility] Hydrochlori -07 tab, PO, l de 50 MG 16:10: TID, 0 [place] Oral Tablet 00 Refill(s) Hydralazine 0 Yes 50 mg = 1 M [facility] Hydrochlori -07 tab, PO, l de 50 MG 16:10: TID, 0 [place] Oral Tablet 00 Refill(s) Hydralazine 0 Yes 50 mg = 1 M [facility] Hydrochlori -07 tab, PO, l de 50 MG 16:10: TID, 0 [place] Oral Tablet 00 Refill(s) Hydralazine 0 Yes 50 mg = 1 M [facility] Hydrochlori -07 tab, PO, l de 50 MG 16:10: TID, 0 [place] Oral Tablet 00 Refill(s) Hydralazine 0 Yes 50 mg = 1 M [facility] Hydrochlori -07 tab, PO, l de 50 MG 16:10: TID, 0 [place] Oral Tablet 00 Refill(s) Hydralazine 0 Yes 50 mg = 1 M [facility] Hydrochlori 1-07 tab, PO, l de 50 MG 16:10: TID, 0 [place] Oral Tablet 00 Refill(s) Hydralazine 0 Yes 50 mg = 1 M [facility] Hydrochlori 1-07 tab, PO, l de 50 MG 16:10: TID, 0 [place] Oral Tablet 00 Refill(s) lisinopril 0 Yes 10 mg = 1 Me [facility] 10 mg oral 1-07 tab, PO, l tablet 16:09: BID, 0 [place] 00 Refill(s) lisinopril 2016-0 Yes 10 mg = 1 Me [facility] 10 mg oral 1-07 tab, PO, l tablet 16:09: BID, 0 [place] 00 Refill(s) lisinopril 2016-0 Yes 10 mg = 1 Me [facility] 10 mg oral 1-07 tab, PO, l tablet 16:09: BID, 0 [place] 00 Refill(s) lisinopril 2016-0 Yes 10 mg = 1 [facility] 10 mg oral 1-07 tab, PO, l tablet 16:09: BID, 0 [place] 00 Refill(s) lisinopril 2016-0 Yes 10 mg = 1 Me [facility] 10 mg oral 1-07 tab, PO, l tablet 16:09: BID, 0 [place] 00 Refill(s) lisinopril 2016-0 Yes 10 mg = 1 Me [facility] 10 mg oral 1-07 tab, PO, l tablet 16:09: BID, 0 [place] 00 Refill(s) lisinopril 2016-0 Yes 10 mg = 1 Me [facility] 10 mg oral 1-07 tab, PO, l tablet 16:09: BID, 0 [place] 00 Refill(s) lisinopril 2016-0 Yes 10 mg [...] tab, PO, l tablet 16:09: BID, 0 [place] 00 Refill(s) lisinopril 0 Yes 10 mg = 1 Me [facility] 10 mg oral 1-07 tab, PO, l tablet 16:09: BID, 0 [place] 00 Refill(s) lisinopril 0 Yes 10 mg [...] tab, PO, l tablet 16:09: BID, 0 [place] 00 Refill(s) lisinopril 2016-0 Yes 10 mg = 1 [facility] 10 mg oral 1-07 tab, PO, l tablet 16:09: BID, 0 [place] 00 Refill(s) lisinopril 2015-0 Yes 10 mg = 1 [facility] 10 mg oral 1-07 tab, PO, l tablet 16:09: BID, 0 [place] 00 Refill(s) lisinopril 2016-0 Yes 10 mg = 1 [facility] 10 mg oral 1-07 tab, PO, l tablet 16:09: BID, 0 [place] 00 Refill(s) lisinopril 2016-0 Yes 10 mg = 1 [facility] 10 mg oral 1-07 tab, PO, l tablet 16:09: BID, 0 [place] 00 Refill(s) lisinopril 2016-0 Yes 10 mg = 1 [facility] 10 mg oral 1-07 tab, PO, l tablet 16:09: BID, 0 [place] 00 Refill(s) lisinopril 2016-0 Yes 10 mg = 1 [facility] 10 mg oral 1-07 tab, PO, l tablet 16:09: BID, 0 [place] 00 Refill(s) lisinopril 2016-0 Yes 10 mg [...] tab, PO, l tablet 16:09: BID, 0 [place] 00 Refill(s) lisinopril 2016-0 Yes 10 mg [...] tab, PO, l tablet 16:09: BID, 0 [place] 00 Refill(s) lisinopril 2016-0 Yes 10 mg [...] tab, PO, l tablet 16:09: BID, 0 [place] 00 Refill(s) lisinopril 2016-0 Yes 10 mg = 1 [facility] 10 mg oral 1-07 tab, PO, l tablet 16:09: BID, 0 [place] 00 Refill(s) lisinopril 2016-0 Yes 10 mg = 1 [facility] 10 mg oral 1-07 tab, PO, l tablet 16:09: BID, 0 [place] 00 Refill(s) lisinopril 2016-0 Yes 10 mg = 1 [facility] 10 mg oral 1-07 tab, PO, l tablet 16:09: BID, 0 [place] 00 Refill(s) lisinopril 2016-0 Yes 10 mg = 1 [facility] 10 mg oral 1-07 tab, PO, l tablet 16:09: BID, 0 [place] 00 Refill(s) lisinopril 2016-0 Yes 10 mg = 1 [facility] 10 mg oral 1-07 tab, PO, l tablet 16:09: BID, 0 [place] 00 Refill(s) lisinopril 2016-0 Yes 10 mg = 1 [facility] 10 mg oral 1-07 tab, PO, l tablet 16:09: BID, 0 [place] 00 Refill(s) lisinopril 2016-0 Yes 10 mg = 1 [facility] 10 mg oral 1-07 tab, PO, l tablet 16:09: BID, 0 [place] 00 Refill(s) lisinopril 2016-0 Yes 10 mg = 1 [facility] 10 mg oral 1-07 tab, PO, l tablet 16:09: BID, 0 [place] 00 Refill(s) lisinopril 2016-0 Yes 10 mg = 1 [facility] 10 mg oral 1-07 tab, PO, l tablet 16:09: BID, 0 [place] 00 Refill(s) lisinopril 2016-0 Yes 10 mg = 1 [facility] 10 mg oral 1-07 tab, PO, l tablet 16:09: BID, 0 [place] 00 Refill(s) lisinopril 2016-0 Yes 10 mg = 1 [facility] 10 mg oral 1-07 tab, PO, l tablet 16:09: BID, 0 [place] 00 Refill(s) lisinopril 2016-0 Yes 10 mg = 1 [facility] 10 mg oral 1-07 tab, PO, l tablet 16:09: BID, 0 [place] 00 Refill(s) lisinopril 2016-0 Yes 10 mg = 1 [facility] 10 mg oral 1-07 tab, PO, l tablet 16:09: BID, 0 [place] 00 Refill(s) lisinopril 2016-0 Yes 10 mg = 1 [facility] 10 mg oral 1-07 tab, PO, l tablet 16:09: BID, 0 [place] 00 Refill(s) lisinopril 2016-0 Yes 10 mg [...] tab, PO, l tablet 16:09: BID, 0 [place] 00 Refill(s) lisinopril 2016-0 Yes 10 mg = 1 [facility] 10 mg oral 1-07 tab, PO, l tablet 16:09: BID, 0 [place] 00 Refill(s) lisinopril 2016-0 Yes 10 mg = 1 [facility] 10 mg oral 1-07 tab, PO, l tablet 16:09: BID, 0 [place] 00 Refill(s) lisinopril 2016-0 Yes 10 mg = 1 [facility] 10 mg oral 1-07 tab, PO, l tablet 16:09: BID, 0 [place] 00 Refill(s) lisinopril 2016-0 Yes 10 mg = 1 [facility] 10 mg oral 1-07 tab, PO, l tablet 16:09: BID, 0 [place] 00 Refill(s) lisinopril 2016-0 Yes 10 mg = 1 [facility] 10 mg oral 1-07 tab, PO, l tablet 16:09: BID, 0 [place] 00 Refill(s) lisinopril 2016-0 Yes 10 mg = 1 [facility] 10 mg oral 1-07 tab, PO, l tablet 16:09: BID, 0 [place] 00 Refill(s) lisinopril 2016-0 Yes 10 mg = 1 [facility] 10 mg oral 1-07 tab, PO, l tablet 16:09: BID, 0 [place] 00 Refill(s) Amlodipine 2016-0 Yes 10 mg = 1 [facility] 10 MG Oral 1-07 tab, PO, l Tablet 16:08: Daily, 0 [place] [Norvasc] 00 Refill(s) Hydrochloro 2016-0 Yes 25 mg, PO, [facility] thiazide 1-07 Daily, 0 l 16:08: Refill(s) [place] Amlodipine 2016-0 Yes 10 mg = 1 Me [facility] 10 MG Oral 1-07 tab, PO, l Tablet 16:08: Daily, 0 [place] [Norvasc] 00 Refill(s) Hydrochloro 2016-0 Yes 25 mg, PO, [facility] thiazide 1-07 Daily, 0 l 16:08: Refill(s) [place] Amlodipine 2016-0 Yes 10 mg = 1 Me [facility] 10 MG Oral 1-07 tab, PO, l Tablet 16:08: Daily, 0 [place] [Norvasc] 00 Refill(s) Hydrochloro 2016-0 Yes 25 mg, PO, [facility] thiazide 1-07 Daily, 0 l 16:08: Refill(s) [place] Amlodipine 2016-0 Yes 10 mg = 1 [...] tab, PO, l Tablet 16:08: Daily, 0 [place] [Norvasc] 00 Refill(s) Hydrochloro 2016-0 Yes 25 mg, PO, [facility] thiazide 11-07 Daily, 0 l 16:08: Refill(s) Amlodipine 2016-0 Yes 10 mg = 1 [facility] 10 MG Oral -07 tab, PO, l Tablet 16:08: Daily, 0 [place] [Norvasc] 00 Refill(s) Hydrochloro 2016-0 Yes 25 mg, PO, [facility] thiazide 11-07 Daily, 0 l 16:08: Refill(s) [place] 00 Amlodipine 2016-0 Yes 10 mg = 1 [facility] 10 MG Oral -07 tab, PO, l Tablet 16:08: Daily, 0 [place] [Norvasc] 00 Refill(s) Hydrochloro 2016-0 Yes 25 mg, PO, [facility] thiazide 11-07 Daily, 0 l 16:08: Refill(s) [place] 00 Amlodipine 2016-0 Yes 10 mg = 1 [facility] 10 MG Oral 1-07 tab, PO, l Tablet 16:08: Daily, 0 [place] [Norvasc] 00 Refill(s) Hydrochloro 2016-0 Yes 25 mg, PO, [facility] thiazide 07 Daily, 0 l 16:08: Refill(s) Amlodipine 2016-0 Yes 10 mg = 1 [facility] 10 MG Oral 1-07 tab, PO, l Tablet 16:08: Daily, 0 [place] [Norvasc] 00 Refill(s) Hydrochloro 2016-0 Yes 25 mg, PO, [facility] thiazide 1-07 Daily, 0 l 16:08: Refill(s) [place] 00 Amlodipine 2016-0 Yes 10 mg = 1 [facility] 10 MG Oral 1-07 tab, PO, l Tablet 16:08: Daily, 0 [place] [Norvasc] 00 Refill(s) Hydrochloro 2016-0 Yes 25 mg, PO, [facility] thiazide 11-07 Daily, 0 l 16:08: Refill(s) Amlodipine 2016-0 Yes 10 mg = 1 [facility] 10 MG Oral 1-07 tab, PO, l Tablet 16:08: Daily, 0 [place] [Norvasc] 00 Refill(s) Hydrochloro 2016-0 Yes 25 [...] tab, PO, l Tablet 16:08: Daily, 0 [place] [Norvasc] 00 Refill(s) Hydrochloro 2016-0 Yes 25 mg, PO, [facility] thiazide 11-07 Daily, 0 l 16:08: Refill(s) Amlodipine 2016-0 Yes 10 mg = 1 [facility] 10 MG Oral 1-07 tab, PO, l Tablet 16:08: Daily, 0 [place] [Norvasc] 00 Refill(s) Hydrochloro 2016-0 Yes 25 mg, PO, [facility] thiazide 1-07 Daily, 0 l 16:08: Refill(s) [place] 00 Amlodipine 2016-0 Yes 10 mg = 1 Me [facility] 10 MG Oral 1-07 tab, PO, l Tablet 16:08: Daily, 0 [place] [Norvasc] 00 Refill(s) Hydrochloro 2016-0 Yes 25 mg, PO, [facility] thiazide 1-07 Daily, 0 l 16:08: Refill(s) [place] 00 Amlodipine 2016-0 Yes 10 mg = 1 [facility] 10 MG Oral -07 tab, PO, l Tablet 16:08: Daily, 0 [place] [Norvasc] 00 Refill(s) Hydrochloro 2016-0 Yes 25 mg, PO, [facility] thiazide 11-07 Daily, 0 l 16:08: Refill(s) Amlodipine 2015-0 Yes 10 mg = 1 [facility] 10 MG Oral -07 tab, PO, l Tablet 16:08: Daily, 0 [place] [Norvasc] 00 Refill(s) Hydrochloro 2016-0 Yes 25 mg, PO, [facility] thiazide 11-07 Daily, 0 l 16:08: Refill(s) [place] 00 Amlodipine 2015-0 Yes 10 mg = 1 [facility] 10 MG Oral -07 tab, PO, l Tablet 16:08: Daily, 0 [place] [Norvasc] 00 Refill(s) Hydrochloro 2016-0 Yes 25 mg, PO, [facility] thiazide 11-07 Daily, 0 l 16:08: Refill(s) [place] 00 Amlodipine 2015-0 Yes 10 mg = 1 Me [facility] 10 MG Oral -07 tab, PO, l Tablet 16:08: Daily, 0 [place] [Norvasc] 00 Refill(s) Hydrochloro 2016-0 Yes 25 [...] tab, PO, l Tablet 16:08: Daily, 0 [place] [Norvasc] 00 Refill(s) Hydrochloro 2016-0 Yes 25 mg, PO, [facility] thiazide 1-07 Daily, 0 l 16:08: Refill(s) [place] 00 Amlodipine 2016-0 Yes 10 mg = 1 [facility] 10 MG Oral -07 tab, PO, l Tablet 16:08: Daily, 0 [place] [Norvasc] 00 Refill(s) Hydrochloro 2016-0 Yes 25 mg, PO, [facility] thiazide 11-07 Daily, 0 l 16:08: Refill(s) Amlodipine 2016-0 Yes 10 mg = 1 [facility] 10 MG Oral -07 tab, PO, l Tablet 16:08: Daily, 0 [place] [Norvasc] 00 Refill(s) Hydrochloro 2016-0 Yes 25 mg, PO, [facility] thiazide 11-07 Daily, 0 l 16:08: Refill(s) Amlodipine 2016-0 Yes 10 mg = 1 [facility] 10 MG Oral - tab, PO, l Tablet 16:08: Daily, 0 [place] [Norvasc] 00 Refill(s) Hydrochloro 2016-0 Yes 25 [...] tab, PO, l Tablet 16:08: Daily, 0 [place] [Norvasc] 00 Refill(s) Hydrochloro 2016-0 Yes 25 mg, PO, [facility] thiazide 07 Daily, 0 l 16:08: Refill(s) Amlodipine 2016-0 Yes 10 mg = 1 Me [facility] 10 MG Oral 1-07 tab, PO, l Tablet 16:08: Daily, 0 [place] [Norvasc] 00 Refill(s) Hydrochloro 2016-0 Yes 25 mg, PO, [facility] thiazide 107 Daily, 0 l 16:08: Refill(s) [place] 00 Amlodipine 2016-0 Yes 10 mg = 1 Me [facility] 10 MG Oral 1-07 tab, PO, l Tablet 16:08: Daily, 0 [place] [Norvasc] 00 Refill(s) Hydrochloro 2016-0 Yes 25 mg, PO, [facility] thiazide 11-07 Daily, 0 l 16:08: Refill(s) Amlodipine 2016-0 Yes 10 mg = 1 Me [facility] 10 MG Oral 1-07 tab, PO, l Tablet 16:08: Daily, 0 [place] [Norvasc] 00 Refill(s) Hydrochloro 2016-0 Yes 25 [...] tab, PO, l Tablet 16:08: Daily, 0 [place] [Norvasc] 00 Refill(s) Hydrochloro 2016-0 Yes 25 mg, PO, [facility] thiazide 11-07 Daily, 0 l 16:08: Refill(s) Amlodipine 2016-0 Yes 10 mg = 1 Me [facility] 10 MG Oral 1-07 tab, PO, l Tablet 16:08: Daily, 0 [place] [Norvasc] 00 Refill(s) Hydrochloro 2016-0 Yes 25 mg, PO, [facility] thiazide 1-07 Daily, 0 l 16:08: Refill(s) [place] 00 Amlodipine 2016-0 Yes 10 mg = [...] tab, PO, l Tablet 16:08: Daily, 0 [place] [Norvasc] 00 Refill(s) Hydrochloro 2016-0 Yes 25 [...] tab, PO, l Tablet 16:08: Daily, 0 [place] [Norvasc] 00 Refill(s) Hydrochloro 2015-0 Yes 25 mg, PO, [facility] thiazide 11-07 Daily, 0 l 16:08: Refill(s) Amlodipine 0 Yes 10 mg = 1 Me [facility] 10 MG Oral -07 tab, PO, l Tablet 16:08: Daily, 0 [place] [Norvasc] 00 Refill(s) Hydrochloro 2016-0 Yes 25 mg, PO, [facility] thiazide 07 Daily, 0 l 16:08: Refill(s) Amlodipine 2015-0 Yes 10 mg = 1 Me [facility] 10 MG Oral -07 tab, PO, l Tablet 16:08: Daily, 0 [place] [Norvasc] 00 Refill(s) Hydrochloro 2016-0 Yes 25 [...] tab, PO, l Tablet 16:08: Daily, 0 [place] [Norvasc] 00 Refill(s) Hydrochloro 2016-0 Yes 25 [...] tab, PO, l Tablet 16:08: Daily, 0 [place] [Norvasc] 00 Refill(s) Hydrochloro 2016-0 Yes 25 [...] tab, PO, l Tablet 16:08: Daily, 0 [place] [Norvasc] 00 Refill(s) Hydrochloro 2016-0 Yes 25 mg, PO, [facility] thiazide 11-07 Daily, 0 l 16:08: Refill(s) Amlodipine 2016-0 Yes 10 mg = 1 Me [facility] 10 MG Oral 1-07 tab, PO, l Tablet 16:08: Daily, 0 [place] [Norvasc] 00 Refill(s) Hydrochloro 2016-0 Yes 25 [...] tab, PO, l Tablet 16:08: Daily, 0 [place] [Norvasc] 00 Refill(s) Hydrochloro 2016-0 Yes 25 [...] tab, PO, l Tablet 16:08: Daily, 0 [place] [Norvasc] 00 Refill(s) Hydrochloro 2016-0 Yes 25 [...] tab, PO, l Tablet 16:08: Daily, 0 [place] [Norvasc] 00 Refill(s) Hydrochloro 2016-0 Yes 25 mg, PO, [facility] thiazide 11-07 Daily, 0 l 16:08: Refill(s) Amlodipine 2015-0 Yes 10 mg = 1 Me [facility] 10 MG Oral -07 tab, PO, l Tablet 16:08: Daily, 0 [place] [Norvasc] 00 Refill(s) Hydrochloro 2016-0 Yes 25 [...] tab, PO, l Tablet 16:08: Daily, 0 [place] [Norvasc] 00 Refill(s) Hydrochloro 2016-0 Yes 25 [...] tab, PO, l Tablet 16:08: Daily, 0 [place] [Norvasc] 00 Refill(s) Hydrochloro 2016-0 Yes 25 [...] tab, PO, l Tablet 16:08: Daily, 0 [place] [Norvasc] 00 Refill(s) Hydrochloro 2016-0 Yes 25 mg, PO, [facility] thiazide 11-07 Daily, 0 l 16:08: Refill(s) Amlodipine 2016-0 Yes 10 mg = 1 Me [facility] 10 MG Oral -07 tab, PO, l Tablet 16:08: Daily, 0 [place] [Norvasc] 00 Refill(s) Hydrochloro 2016-0 Yes 25 mg, PO, [facility] thiazide 07 Daily, 0 l 16:08: Refill(s) metoprolol 2015-0 Yes 100 mg = 1 M emoria [...] OF BREATH allopurinol allopurinol No allopurino [facility] 300 mg 300 mg l 300 mg [...] FOR ANXIETY amlodipine amlodipine No amlodipine [facility] 5 mg tablet 5 mg tablet 5 mg F amily TAKE 1 TAKE 1 tablet Practic TABLET BY TABLET BY TAKE 1 e MOUTH EVERY MOUTH EVERY TABLET BY DAY DAY MOUTH EVERY DAY atorvastati atorvastati No atorvastat [facility] n 20 mg n 20 mg in 20 mg Famil y tablet TAKE tablet TAKE tablet Practic 1 TABLET BY 1 TABLET BY TAKE 1 e MOUTH EVERY MOUTH EVERY TABLET BY DAY DAY MOUTH EVERY DAY BD Insulin BD Insulin No BD Insulin [facility] Syringe Syringe Syringe Family U-500 1/2 U-500 1/2 U-500 1/2 Practic mL 31 gauge mL 31 gauge mL 31 e x 15" x 15" gauge x USE 1 USE [...] TWICE DAILY clonidine clonidine No clonidine [facility] HCl 0.2 mg HCl 0.2 mg HCl [...] ONSET OF DIARRHEA cyclobenzap cyclobenzap No cyclobenza [facility] rine 10 mg rine 10 mg wiley [...] EAR PAIN diclofenac diclofenac No diclofenac [facility] 1 % topical 1 % topical 1 % F amily gel APPLY gel APPLY topical Pr actic TO THE TO THE gel APPLY e AFFECTED AFFECTED TO THE AREA FOUR AREA FOUR AFFECTED TIMES DAILY TIMES DAILY AREA FOUR TIMES DAILY diclofenac diclofenac No diclofenac [facility] sodium 75 sodium 75 sodium 75 Family mg mg mg Practic tablet,artem tablet,artem tablet,del e yed release yed release ayed TAKE 1 TAKE 1 release TABLET BY TABLET BY TAKE 1 MOUTH TWICE MOUTH TWICE TABLET BY DAILY WITH DAILY WITH MOUTH MEALS MEALS TWICE DAILY WITH MEALS dicyclomine dicyclomine No dicyclomin [facility] 10 mg 10 mg e 10 mg Family capsule capsule capsule Practi c TAKE 1 TAKE 1 TAKE 1 e CAPSULE BY CAPSULE BY CAPSULE BY MOUTH EVERY MOUTH EVERY MOUTH 8 HOURS 8 HOURS EVERY 8 HOURS gabapentin gabapentin No gabapentin [facility] 600 mg 600 mg 600 mg Family [...] EVERY EVENING hydralazine hydralazine No hydralazin [facility] 100 mg 100 mg e 100 mg Family tablet TAKE tablet TAKE tablet Practic 1 TABLET BY 1 TABLET BY TAKE 1 e MOUTH THREE MOUTH THREE TABLET BY TIMES DAILY TIMES DAILY MOUTH THREE TIMES DAILY hydrochloro hydrochloro No hydrochlor [facility] thiazide thiazide othiazide Fa davida 12.5 mg 12.5 mg 12.5 mg Practi c capsule capsule capsule e TAKE 1 TAKE 1 TAKE 1 CAPSULE BY CAPSULE BY CAPSULE BY MOUTH DAILY MOUTH DAILY MOUTH DAILY hydrocodone hydrocodone No hydrocodon [facility] 7.5 7.5 e 7.5 Family mg-acetamin mg-acetamin [...] MEALS TWICE DAILY WITH MEALS [facility] bromide m bromide Fami ly 0.02 % 0.02 % 0.02 % Practic solution solution solution e for for for inhalation inhalation inhalation lisinopril lisinopril lisinopril [facility] 40 mg 40 mg 40 mg Family tablet TAKE tablet TAKE tablet Practic 1/2 TABLET 1/2 TABLET TAKE 1/2 e BY MOUTH BY MOUTH TABLET BY TWICE DAILY TWICE DAILY MOUTH TWICE DAILY mesalamine mesalamine No mesalamine [facility] ER 0.375 ER 0.375 ER 0.375 Fam ramses gram gram gram Practic capsule,ext capsule,ext capsule,ex e ended ended tended release 24 release 24 release 24 hr TAKE 4 hr TAKE 4 hr TAKE 4 CAPSULES BY CAPSULES BY CAPSULES MOUTH DAILY MOUTH DAILY BY MOUTH DAILY metformin metformin metformin [facility] [facility] 1,000 mg 1,000 mg 1,000 mg Fam ramses tablet TAKE tablet TAKE tablet Practic 1 TABLET BY 1 TABLET BY TAKE 1 e MOUTH TWICE MOUTH TWICE TABLET BY DAILY WITH DAILY WITH MOUTH MEALS MEALS TWICE DAILY WITH MEALS metoprolol metoprolol No metoprolol [facility] tartrate tartrate tartrate Fam ramses 100 mg [...] MOUTH DAILY nitroglycer nitroglycer No nitroglyce [facility] in 0.4 mg in 0.4 mg rin 0.4 mg Family sublingual sublingual sublingual Practic tablet tablet tablet e PLACE [address] 1 TABLET TABLET TABLET UNDER THE UNDER THE UNDER THE TONGUE TONGUE TONGUE EVERY 5 EVERY 5 EVERY 5 MINUTES MINUTES MINUTES NEEDED FOR NEEDED FOR NEEDED FOR CHEST PAIN. CHEST PAIN. CHEST PAIN. ondansetron ondansetron No ondansetro [facility] HCl 4 mg HCl 4 mg n [...] EVERY DAY sucralfate sucralfate No sucralfate [facility] 1 gram 1 gram 1 gram Family [...] Ordered Filled Immunization Date Status Comments [facility] e Immunization Name Name Influenza Virus 2022-09-21 Completed Universit y of Vaccine [facility], 00:00:00 [place] [facility] ABX Branch Free 6 MO-64 YRS Influenza Virus 2022-09-21 Completed [facility]it y of Vaccine [facility], 00:00:00 [place] [facility] Preserv and ABX Branch Free 6 MO-64 YRS Influenza Virus 2022-09-21 Completed [facility]it y of Vaccine [facility], 00:00:00 [place] [facility] Preserv and ABX Branch Free 6 MO-64 YRS Influenza Virus 2022-09-21 Completed [facility]it y of Vaccine [facility], 00:00:00 [place] [facility] Preserv and ABX Branch Free 6 MO-64 YRS Influenza Virus 2022-09-21 Completed Universit y of Vaccine [facility], 00:00:00 [place] [facility] Preserv and ABX Branch Free 6 MO-64 YRS Influenza Virus 2022-09-21 Completed [facility]it y of Vaccine [facility], 00:00:00 [place] [facility] Preserv and ABX Branch Free 6 MO-64 YRS Influenza Virus 2022-09-21 Completed [facility]it y of Vaccine [facility], 00:00:00 [place] [facility] Preserv and ABX Branch Free [...] Universit y of Vaccine [facility], 00:00:00 [place] [facility] Preserv and ABX Branch Free 6 MO-64 YRS SARS-COV-2 COVID-19 2021-07-11 Completed Unive rsity of MODERNA VACCINE 00:00:00 [facility] Branch SARS-COV-2 COVID-19 2021-07-11 Completed Unive rsity [...] Unive rsity of MODERNA VACCINE 00:00:00 [facility] ical Branch SARS-COV-2 COVID-19 2020-12-03 Completed [...] Unive rsity of MODERNA 12+ YRS 00:00:00 [facility] ical VACCINE Branch SARS-COV-2 COVID-19 2020-12-03 Completed Unive rsity of MODERNA 12+ YRS 00:00:00 [facility] ical VACCINE Branch SARS-COV-2 COVID-19 2020-12-03 Completed Unive rsity of MODERNA 12+ YRS 00:00:00 [facility] VACCINE Branch Influenza Virus 2020-11-13 Completed Universit [...] y of Vaccine Quad .5 mL 00:00:00 [facility] 6+ MO Branch Influenza Virus 2020-11-13 Completed Universit y of Vaccine Quad .5 mL 00:00:00 [facility] 6+ MO Branch Influenza Virus 2020-11-13 Completed Universit y of Vaccine Quad .5 mL 00:00:00 [facility] 6+ MO Branch Influenza Virus 2020-11-13 Completed Universit y of Vaccine Quad .5 mL 00:00:00 [facility] 6+ MO Branch Influenza Virus 2020-11-13 Completed Universit y of Vaccine Quad .5 mL 00:00:[address] [facility] IM 6+ MO Branch Influenza Virus 2020-11-13 Completed Universit y of Vaccine Quad .5 mL 00:00:00 [facility] 6+ MO Branch Pneumococcal 2016-09-11 Completed University o f Polysaccharide, 00:00:00 [place] [facility] PPSV23 (PNEUMOVAX) Branch Influenza Virus 2016-09-11 Completed Universit y of Vaccine (3+ yrs) 00:00:00 [facility] Branch Pneumococcal 2016-09-11 Completed University o f Polysaccharide, 00:00:00 [place] [facility] PPSV23 (PNEUMOVAX) Branch Influenza Virus 2016-09-11 Completed Universit y of Vaccine (3+ yrs) 00:00:00 [facility] Branch Pneumococcal 2016-09-11 Completed University o f Polysaccharide, 00:00:00 [place] [facility] PPSV23 (PNEUMOVAX) Branch Influenza Virus 2016-09-11 Completed Universit y of Vaccine (3+ yrs) 00:00:00 [facility] dicoh Branch Pneumococcal 2016-09-11 Completed University o f Polysaccharide, 00:00:00 [place] [facility] PPSV23 (PNEUMOVAX) Branch Influenza Virus 2016-09-11 Completed Universit y of Vaccine (3+ yrs) 00:00:00 [facility] dicoh Branch Pneumococcal 2016-09-11 Completed University o f Polysaccharide, 00:00:00 [place] [facility] PPSV23 (PNEUMOVAX) Branch Influenza Virus 2016-09-11 Completed Universit y of Vaccine (3+ yrs) 00:00:00 [facility] dicoh Branch Pneumococcal 2016-09-11 Completed University o f Polysaccharide, 00:00:00 [place] [facility] PPSV23 (PNEUMOVAX) Branch Influenza Virus 2016-09-11 Completed Universit y of Vaccine (3+ yrs) 00:00:00 [facility] dical Branch Pneumococcal 2016-09-11 Completed University o f Polysaccharide, 00:00:00 [place] [facility] PPSV23 (PNEUMOVAX) Branch Influenza Virus 2016-09-11 Completed Universit y of Vaccine (3+ yrs) 00:00:00 [facility] Branch Pneumococcal 2016-09-11 Completed University o f Polysaccharide, 00:00:00 [place] [facility] PPSV23 (PNEUMOVAX) Branch Influenza Virus 2016-09-11 Completed Universit y of Vaccine (3+ yrs) 00:00:00 [facility] Branch Pneumococcal 2016-09-11 Completed University o f Polysaccharide, 00:00:00 [place] [facility] PPSV23 (PNEUMOVAX) Branch Influenza Virus 2016-09-11 Completed Universit y of Vaccine (3+ yrs) 00:00:00 [facility] Branch Pneumococcal 2016-09-11 Completed University o f Polysaccharide, 00:00:00 [place] [facility] PPSV23 (PNEUMOVAX) Branch Influenza Virus 2016-09-11 Completed Universit y of Vaccine (3+ yrs) 00:00:00 [facility] Branch Pneumococcal 2016-09-11 Completed University o f Polysaccharide, 00:00:00 [place] [facility] PPSV23 (PNEUMOVAX) Branch Influenza Virus 2016-09-11 Completed Universit y of Vaccine (3+ yrs) 00:00:00 [facility] Branch Pneumococcal 2016-09-11 Completed University o f Polysaccharide, 00:00:00 [place] [facility] PPSV23 (PNEUMOVAX) Branch Influenza Virus 2016-09-11 Completed Universit y of Vaccine (3+ yrs) 00:00:00 [facility] Branch Pneumococcal 2016-09-11 Completed University o f Polysaccharide, 00:00:00 [place] [facility] PPSV23 (PNEUMOVAX) Branch Influenza Virus 2016-09-11 Completed Universit y of Vaccine (3+ yrs) 00:00:00 [facility] Branch Pneumococcal 2016-09-11 Completed University o f Polysaccharide, 00:00:00 [place] [facility] PPSV23 (PNEUMOVAX) Branch Influenza Virus 2016-09-11 Completed Universit y of Vaccine (3+ yrs) 00:00:00 [facility] Branch Pneumococcal 2016-09-11 Completed University o f Polysaccharide, 00:00:00 [place] [facility] PPSV23 (PNEUMOVAX) Branch Influenza Virus 2016-09-11 Completed Universit y of Vaccine (3+ yrs) 00:00:00 [facility] dical Branch Pneumococcal 2016-09-11 Completed University o f Polysaccharide, 00:00:00 [place] [facility] PPSV23 (PNEUMOVAX) Branch Influenza Virus 2016-09-11 Completed Universit y of Vaccine (3+ yrs) 00:00:00 [facility] dical Branch Pneumococcal 2016-09-11 Completed University o f Polysaccharide, 00:00:00 [place] [facility] PPSV23 (PNEUMOVAX) Branch Influenza Virus 2016-09-11 Completed Universit y of Vaccine (3+ yrs) 00:00:00 [facility] dical Branch Pneumococcal 2016-09-11 Completed University o f Polysaccharide, 00:00:00 [place] [facility] PPSV23 (PNEUMOVAX) Branch Influenza Virus 2016-09-11 Completed Universit y of Vaccine (3+ yrs) 00:00:00 [facility] dical Branch Pneumococcal 2016-09-11 Completed University o f Polysaccharide, 00:00:00 [place] [facility] PPSV23 (PNEUMOVAX) Branch Influenza Virus 2016-09-11 Completed Universit y of Vaccine (3+ yrs) 00:00:00 [facility] dical Branch Pneumococcal 2015-04-11 Completed University o f [...] 2015-04-11 Completed University o f Polysaccharide, 00:00:00 [place] [facility] PPSV23 (PNEUMOVAX) Branch Pneumococcal 2015-04-11 Completed University o f Polysaccharide, 00:00:00 [facility] ical PPSV23 (PNEUMOVAX) Branch Influenza Virus 2013-09-29 Completed Universit y of Vaccine (3+ yrs) 00:00:00 [facility] [place] Influenza Virus 2013-09-29 Completed Universit y of Vaccine (3+ yrs) 00:00:00 [facility] Influenza Virus 2013-09-29 Completed Universit y of Vaccine (3+ yrs) 00:00:00 [facility] [place] Influenza Virus 2013-09-29 Completed Universit y of Vaccine (3+ yrs) 00:00:00 [facility] [place] Influenza Virus 2013-09-29 Completed Universit y of Vaccine (3+ yrs) 00:00:00 [facility] Flu Trivalent 2013-09-29 Completed University of 00:00:00 [facility] Influenza Virus 2013-09-29 Completed Universit y of Vaccine (3+ yrs) 00:00:00 [facility] Flu Trivalent 2013-09-29 Completed University of 00:00:00 [facility] Influenza Virus 2013-09-29 Completed Universit y of Vaccine (3+ yrs) 00:00:00 [facility] [place] Flu Trivalent 2013-09-29 Completed University of 00:00:00 [facility] Influenza Virus 2013-09-29 Completed Universit y of Vaccine (3+ yrs) 00:00:00 [facility] [place] Flu Trivalent 2013-09-29 Completed University of 00:00:00 [facility] Influenza Virus 2013-09-29 Completed Universit y of Vaccine (3+ yrs) 00:00:00 [facility] [place] Flu Trivalent 2013-09-29 Completed University of 00:00:00 [facility] Influenza Virus 2013-09-29 Completed Universit y of Vaccine (3+ yrs) 00:00:00 [facility] [place] Flu Trivalent 2013-09-29 Completed University of 00:00:00 [facility] Influenza Virus 2013-09-29 Completed Universit y of Vaccine (3+ yrs) 00:00:00 [facility] [place] Flu Trivalent 2013-09-29 Completed University of 00:00:00 [facility] Influenza Virus 2013-09-29 Completed Universit y of Vaccine (3+ yrs) 00:00:00 [facility] [place] Flu Trivalent 2013-09-29 Completed University of 00:00:00 [facility] Influenza Virus 2013-09-29 Completed Universit y of Vaccine (3+ yrs) 00:00:00 [facility] [place] Flu Trivalent 2013-09-29 Completed University of 00:00:00 [facility] Influenza Virus 2013-09-29 Completed Universit y of Vaccine (3+ yrs) 00:00:00 [facility] [place] Flu Trivalent 2013-09-29 Completed University of 00:00:00 [facility] Influenza Virus 2013-09-29 Completed Universit y of Vaccine (3+ yrs) 00:00:00 [facility] [place] Flu Trivalent 2013-09-29 Completed University of 00:00:00 [facility] Influenza Virus 2013-09-29 Completed Universit y of Vaccine (3+ yrs) 00:00:00 [facility] [place] Flu Trivalent 2013-09-29 Completed University of 00:00:00 [facility] Influenza Virus 2013-09-29 Completed Universit y of Vaccine (3+ yrs) 00:00:00 [facility] [place] Flu Trivalent 2013-09-29 Completed University of 00:00:00 [facility] Influenza Virus 2013-09-29 Completed Universit y of Vaccine (3+ yrs) 00:00:00 [facility] [place] Flu Trivalent 2013-09-29 Completed University of 00:00:00 [facility] Influenza Virus 2013-09-29 Completed Universit y of Vaccine (3+ yrs) 00:00:00 [facility] [place] Flu Trivalent 2013-09-29 Completed University of 00:00:00 [facility] Influenza Virus 2012-11-25 Completed Universit y of Vaccine (3+ yrs) 00:00:00 [facility] [place] Influenza Virus 2012-11-25 Completed Universit y of Vaccine (3+ yrs) 00:00:00 [facility] [place] Influenza Virus 2012-11-25 Completed Universit y of Vaccine (3+ yrs) 00:00:00 [facility] [place] Influenza Virus 2012-11-25 Completed Universit y of Vaccine (3+ yrs) 00:00:00 [facility] [place] Influenza Virus 2012-11-25 Completed Universit y of Vaccine (3+ yrs) 00:00:00 [facility] [place] Flu Trivalent 2012-11-25 Completed University of 00:00:00 [facility] Influenza Virus 2012-11-25 Completed Universit y of Vaccine (3+ yrs) 00:00:00 [facility] [place] Flu Trivalent 2012-11-25 Completed University of 00:00:00 [facility] Influenza Virus 2012-11-25 Completed Universit y of Vaccine (3+ yrs) 00:00:00 [facility] [place] Flu Trivalent 2012-11-25 Completed University of 00:00:00 [facility] Influenza Virus 2012-11-25 Completed Universit y of Vaccine (3+ yrs) 00:00:00 [facility] [place] Flu Trivalent 2012-11-25 Completed University of 00:00:00 [facility] Influenza Virus 2012-11-25 Completed Universit y of Vaccine (3+ yrs) 00:00:00 [facility] [place] Flu Trivalent 2012-11-25 Completed University of 00:00:00 [facility] Influenza Virus 2012-11-25 Completed Universit y of Vaccine (3+ yrs) 00:00:00 [facility] [place] Flu Trivalent 2012-11-25 Completed University of 00:00:00 [facility] Influenza Virus 2012-11-25 Completed Universit y of Vaccine (3+ yrs) 00:00:00 [facility] [place] Flu Trivalent 2012-11-25 Completed University of 00:00:00 [facility] Influenza Virus 2012-11-25 Completed Universit y of Vaccine (3+ yrs) 00:00:00 [facility] [place] Flu Trivalent 2012-11-25 Completed University of 00:00:00 [facility] Influenza Virus 2012-11-25 Completed Universit y of Vaccine (3+ yrs) 00:00:00 [facility] [place] Flu Trivalent 2012-11-25 Completed University of 00:00:00 [facility] Influenza Virus 2012-11-25 Completed Universit y of Vaccine (3+ yrs) 00:00:00 [facility] Flu Trivalent 2012-11-25 Completed University of 00:00:00 [facility] Influenza Virus 2012-11-25 Completed Universit y of Vaccine (3+ yrs) 00:00:00 [facility] [place] Flu Trivalent 2012-11-25 Completed University of 00:00:00 [facility] Influenza Virus 2012-11-25 Completed Universit y of Vaccine (3+ yrs) 00:00:00 [facility] [place] Flu Trivalent 2012-11-25 Completed University of 00:00:00 [facility] Influenza Virus 2012-11-25 Completed Universit y of Vaccine (3+ yrs) 00:00:00 [facility] [place] Flu Trivalent 2012-11-25 Completed University of 00:00:00 [facility] Influenza Virus 2012-11-25 Completed Universit y of Vaccine (3+ yrs) 00:00:00 [facility] [place] Flu Trivalent 2012-11-25 Completed University of 00:00:00 [facility] Influenza Virus 2012-11-25 Completed Universit y of Vaccine (3+ yrs) 00:00:00 [facility] Flu Trivalent 2012-11-25 Completed University of 00:00:00 [facility] Vital Signs Vital Name Observation Time Observation Value Comments Source Systolic blood 2023-04-08 14:02:00 119 mm[Hg] Univer sity of pressure [facility] Diastolic blood 2023-04-08 14:02:00 75 mm[Hg] Unive rsity of pressure [facility] Heart rate 2023-04-08 14:02:00 73 /min [facility] [place] [facility] Respiratory rate 2023-04-08 14:02:00 18 /min Univ ersity of [place] [facility] Body height 2023-04-08 14:02:00 160 cm [facility] [place] [facility] Body weight 2023-04-08 14:02:00 142.792 kg [facility] [place] [facility] BMI 2023-04-08 14:02:00 55.76 kg/m2 [facility] [place] [facility] Oxygen saturation in 2023-04-08 14:02:00 95 /min University of Arterial blood by [place] [facility] P[facility] oxim[facility] Branch Systolic blood 2022-10-21 15:09:00 141 mm[Hg] Univer sity of pressure [facility] Diastolic blood 2022-10-21 15:09:00 81 mm[Hg] Unive rsity of pressure [facility] Heart rate 2022-10-21 15:08:00 84 /min [facility] [place] [facility] Body height 2022-10-21 15:08:00 160 cm [facility] [place] [facility] Body weight 2022-10-21 15:08:00 151.275 kg [facility] [place] [facility] BMI 2022-10-21 15:08:00 59.08 kg/m2 [facility] [place] [facility] Oxygen saturation in 2022-10-21 15:08:00 95 /min University of Arterial blood by [place] [facility] P[facility]xim[facility] Branch Systolic blood 2022-09-21 15:34:00 151 mm[Hg] Univer sity of pressure [facility] Diastolic blood 2022-09-21 15:34:00 74 mm[Hg] Unive rsity of pressure [facility] Heart rate 2022-09-21 15:33:00 86 /min [facility] [place] [facility] Body height 2022-09-21 15:33:00 160 cm [facility] [place] [facility] Body weight 2022-09-21 15:33:00 149.778 kg [facility] [place] [facility] BMI 2022-09-21 15:33:00 58.49 kg/m2 [facility] [place] [facility] Oxygen saturation in 2022-09-21 15:33:00 92 /min University of Arterial blood by [facility] mari Pulse oximetry Branch Systolic blood 2022-08-25 14:59:00 121 mm[Hg] Univer sity of pressure [facility] Diastolic blood 2022-08-25 14:59:00 75 mm[Hg] Unive rsity of pressure [facility] Heart rate 2022-08-25 14:59:00 108 /min [facility] [place] [facility] Body temperature 2022-08-25 14:59:00 36.67 Pat Univ ersity of [facility] Branch Body height 2022-08-25 14:59:00 160 cm [facility] Body weight 2022-08-25 14:59:00 146.512 kg [facility] [place] [facility] BMI 2022-08-25 14:59:00 57.22 kg/m2 [facility] Oxygen saturation in 2022-08-25 14:59:00 96 /min University of Arterial blood by [facility] Pulse oximetry Branch Body temperature 2022-06-16 12:58:00 36.33 Pat [facility] Body height 2022-06-16 12:58:00 160 cm [facility] Body weight 2022-06-16 12:58:00 151.32 kg [facility] BMI 2022-06-16 12:58:00 59.09 kg/m2 [facility] Systolic blood 2022-03-18 14:25:00 120 mm[Hg] Univer sity of pressure [facility] Diastolic blood 2022-03-18 14:25:00 70 mm[Hg] Unive rsity of pressure [facility] Heart rate 2022-03-18 14:25:00 78 /min [facility] Body height 2022-03-18 14:25:00 160 cm [facility] Body weight 2022-03-18 14:25:00 150.367 kg [facility] [place] [facility] BMI 2022-03-18 14:25:00 58.72 kg/m2 [facility] Medical [facility] Oxygen saturation in 2022-03-18 14:25:00 95 /min [facility] blood by [facility] Pulse oximetry Branch HEIGHT 2022-01-09 09:38:00 160 cm WEIGHT 2022-01-09 09:38:00 151.501 kg HEIGHT 2022-01-08 12:04:00 160 cm WEIGHT 2022-01-08 12:04:00 149.687 kg HEIGHT 2022-01-09 09:38:00 160 cm WEIGHT 2022-01-09 09:38:00 151.501 kg HEIGHT 2022-01-08 12:04:00 160 cm WEIGHT 2022-01-08 12:04:00 149.687 kg Systolic blood 2021-11-06 19:35:00 132 mm[Hg] [facility] pressure Medicine Diastolic blood 2021-11-06 19:35:00 69 mm[Hg] [facility] Medicine Heart rate 2021-11-06 19:35:00 93 /min [facility] Body temperature 2021-11-06 19:35:00 36 Pat [facility] Respiratory rate 2021-11-06 19:35:00 18 /min [facility] Body height 2021-11-06 19:35:00 160 cm [facility] Body weight 2021-11-06 19:35:00 151.32 kg [facility] BMI 2021-11-06 19:35:00 59.09 kg/m2 [facility] BP Diastolic 2021-08-21 00:00:00 89 mm[Hg] [facility] Height 2021-08-21 00:00:00 63 [in_i] [facility] BMI (Body Mass 2021-08-21 00:00:00 58.1 kg/m2 [facility] BP Systolic 2021-08-21 00:00:00 131 mm[Hg] [facility] Body Weight 2021-08-21 00:00:00 328 [lb_av] [facility] Systolic blood 2023-03-31 14:50:03 108 mm[Hg] [facility]ity [facility] Diastolic blood 2023-03-31 14:50:03 74 mm[Hg] [facility]ity [facility] Heart rate 2023-03-31 14:50:03 80 /min [facility] Body temperature 2023-03-31 14:50:03 36.28 Pat [facility] Respiratory rate 2023-03-31 14:50:03 18 /min [facility] Body height 2023-03-31 14:50:03 155 cm [facility] Body weight 2023-03-31 14:50:03 141.4 kg [facility] BMI 2023-03-31 14:50:03 58.85 kg/m2 [facility] Oxygen saturation in 2023-03-31 14:50:03 94 /min [facility] of Arterial blood by [facility] P[facility] Systolic blood 2023-03-11 16:45:59 129 mm[Hg] [facility]ity of [facility] Diastolic blood 2023-03-11 16:45:59 76 mm[Hg] [facility]ive [facility]ity of [facility] Heart rate 2023-03-11 16:45:59 82 /min [facility] Body temperature 2023-03-11 16:45:59 36.39 Pat [facility] Respiratory rate 2023-03-11 16:45:59 16 /min [facility] Body weight 2023-03-11 16:45:59 138.3 kg [facility] BMI 2023-03-11 16:45:59 57.56 kg/m2 [facility] Oxygen saturation in 2023-03-11 16:45:59 93 /min [facility] Arterial blood by [facility] Body height 2023-02-06 13:19:00 155 cm [facility] Systolic blood 2022-01-09 13:53:00 157 mm[Hg] [facility] Diastolic blood 2022-01-09 13:53:00 89 mm[Hg] [facility] Heart rate 2022-01-09 13:53:00 80 /min [facility] Body temperature 2022-01-09 13:53:00 36.33 Pat [facility] Respiratory rate 2022-01-09 13:53:00 19 /min [facility] Oxygen saturation in 2022-01-09 13:53:00 93 /min [facility] Arterial blood by Medical Ce nter Pulse oximetry Body height 2022-01-09 09:38:00 160 cm [facility] Body weight 2022-01-09 09:38:00 151.501 kg [facility] BMI 2022-01-09 09:38:00 59.17 kg/m2 [facility] Systolic (mm Hg) 2018-04-04 19:53:00 [place] [facility] [place] Diastolic (mm Hg) 2018-04-04 19:53:00 Mem [facility] [place] Respitory Rate 2018-04-04 19:53:00 Memori al [place] Systolic (mm Hg) 2018-04-04 19:41:00 [place] rial [place] Diastolic (mm Hg) 2018-04-04 19:41:00 Mem orial [place] Respitory Rate 2018-04-04 19:41:00 Memori al [place] Systolic (mm Hg) 2018-04-04 18:06:00 [place] rial [place] Diastolic (mm Hg) 2018-04-04 18:06:00 Mem [facility] [place] Respitory Rate 2018-04-04 18:06:00 [facility] [place] Weight 2018-04-04 18:04:00 [facility] BMI Calculated 2018-04-04 18:04:00 [facility] [place] Height 2018-03-30 16:54:00 160.02 cm [facility] Respitory Rate 2018-03-21 22:06:00 Mem[facility] [place] Systolic (mm Hg) 2018-03-21 22:06:00 [place] [facility] [place] Diastolic (mm Hg) 2018-03-21 22:06:00 Mem [facility] [place] Respitory Rate 2018-03-21 21:53:00 Memori al [place] Systolic (mm Hg) 2018-03-21 21:53:00 [place] [facility] [place] Diastolic (mm Hg) 2018-03-21 21:53:00 Mem orial [place] Systolic (mm Hg) 2018-03-21 19:08:00 [place] [facility] [place] Diastolic (mm Hg) 2018-03-21 19:08:00 Mem [facility] [place] Respitory Rate 2018-03-21 19:08:00 [facility] [place] Height 2018 18:32:00 160.02 cm [facility] Weight 2018 18:32:00 [facility] BMI Calculated 2018 18:32:00 [facility] [place] Weight 2015-11-07 16:05:00 [facility] BMI Calculated 2015-11-07 16:05:00 [facility] [place] Height 2015-11-07 16:05:00 160.02 cm [facility] Procedures Procedure Date / Time Performing Clinician Source Performed INSURANCE CORRESPONDENCE 2023-03-12 Doctor Unassigned, Univ ersity of 05:01:00 [place] [facility] COMPLETE BLOOD COUNT W/ 2023-03-11 Lorena Hdez [facility] versity of DIFFERENTIAL 16:15:10 Bere olivier [facility] COMPREHENSIVE METABOLIC PANEL 2023-03-11 Lorena Hdez [facility] of 16:15:10 [place] MD Liane olivier [facility] MAGNESIUM LEVEL 2023-03-11 Lorena Hdez [place] of 16:15:10 Bere olivier [facility] Results CBC 2023-03-11 Lorena Hdez [place] of 16:15:10 [place] [facility] MANUAL DIFFERENTIAL 2023-03-11 Lorena Hdez [facility] ity of 16:15:10 Bere olivier [facility] GLUCOSE LEVEL 2023-03-11 Lorena Hdez [place] of 16:15:10 Bere olivier [facility] BLOOD UREA NITROGEN 2023-03-11 Lorena Hdez [facility] ity of 16:15:10 [place] Liane olivier [facility] ELECTROLYTE PANEL 2023-03-11 Lorena Hdez Universit y of 16:15:10 [place] [facility] SERUM CREATININE 2023-03-11 Lorena Hedz [place] of 16:15:10 [place] [facility] .GLOMERULAR FILTRATION RATE 2023-03-11 Lorena Hdez [place] of 16:15:10 [place] [facility] CALCIUM LEVEL TOTAL 2023-03-11 Lorena Hdez [facility] ity of 16:15:10 [place] [facility] ALBUMIN LEVEL 2023-03-11 Lorena Hdez [place] of 16:15:10 [place] [facility] ALKALINE PHOSPHATASE 2023-03-11 [facility] of 16:15:10 [place] [facility] ALANINE AMINOTRANSFERASE 2023-03-11 Lorena Hdez iversity of 16:15:10 [place] [facility] ASPARTATE AMINOTRANSFERASE 2023-03-11 Lorena Hdez [place] of 16:15:10 [place] [facility] TOTAL PROTEIN 2023-03-11 Lorena Hdez [place] of 16:15:10 [place] [facility] FRACTIONATED BILIRUBIN 2023-03-11 Lorena Hdez [facility] ersity of 16:15:10 [place] [facility] COMPLETE BLOOD COUNT W/ 2023-03-03 Lorena Hdez Uni versity of DIFFERENTIAL 18:03:40 [place] [facility] COMPREHENSIVE METABOLIC PANEL 2023-03-03 Lorena Hdez [place] of 18:03:40 [place] [facility] MAGNESIUM LEVEL 2023-03-03 Lorena Hdez [place] of 18:03:40 [place] [facility] Results CBC 2023-03-03 Lorena Hdez [place] of 18:03:40 [place] [facility] MANUAL DIFFERENTIAL 2023-03-03 Lorena Hdez [facility] ity of 18:03:40 [place] [facility] GLUCOSE LEVEL 2023-03-03 Lorena Hdez [place] of 18:03:40 [place] [facility] BLOOD UREA NITROGEN 2023-03-03 Lorena Hdez [facility] ity of 18:03:40 [place] [facility] ELECTROLYTE PANEL 2023-03-03 [facility] Universit y of 18:03:40 [place] [facility] SERUM CREATININE 2023-03-03 [facility] 18:03:40 [place] [facility] .GLOMERULAR FILTRATION RATE 2023-03-03 Lorena Hdez [place] of 18:03:40 [place] [facility] CALCIUM LEVEL TOTAL 2023-03-03 [facility] of 18:03:40 [place] [facility] ALBUMIN LEVEL 2023-03-03 [facility] of 18:03:40 [place] [facility] ALKALINE PHOSPHATASE 2023-03-03 Lore[facility]dez [facility] of 18:03:40 [place] [facility] ALANINE AMINOTRANSFERASE 2023-03-03 [facility] i[facility] of 18:03:40 [place] [facility] ASPARTATE AMINOTRANSFERASE 2023-03-03 [facility] of 18:03:40 [place] [facility] TOTAL PROTEIN 2023-03-03 [facility] of 18:03:40 [place] [facility] FRACTIONATED BILIRUBIN 2023-03-03 Simona [facility]fer [facility] ersity of 18:03:40 [place] [facility] POC GLUCOSE SCREEN 2023-02-16 Phyllis Rangel [facility] y of 17:02:00 Ashleigh Blackburn MD [facility] ANTI-XA LEVEL 2023-02-16 [place], [facility] of 16:13:00 Sil[place] [facility] POC GLUCOSE SCREEN 2023-02-16 Phyllis Rangel [facility] y of 12:20:00 Ashleigh Blackburn MD [facility] MAGNESIUM LEVEL 2023-02-16 [facility] 11:15[facility]00 [facility] [place] [facility] PHOSPHORUS LEVEL 2023-02-16 [facility] 11:15:00 [facility] [place] [facility] COMPLETE BLOOD COUNT W/ 2023-02-16 Mark Universi ty of DIFFERENTIAL 11:15:00 [facility] COMPREHENSIVE METABOLIC PANEL 2023-02-16 Romero, Thao Yogi. Un iversity of 11:15:00 [place] [facility] GLUCOSE LEVEL 2023-02-16 Thao Romero V. University of 11:15:00 [place] [facility] BLOOD UREA NITROGEN 2023-02-16 Thao Romero V. [place] o f 11:15:00 [place] [facility] ELECTROLYTE PANEL 2023-02-16 Thao Romero V. [place] of 11:15:00 [place] [facility] SERUM CREATININE 2023-02-16 Thao Romero V. [place] of 11:15:00 [facility] .GLOMERULAR FILTRATION RATE 2023-02-16 Thao Romero V. Univ ersity of 11:15:00 [place] [facility] CALCIUM LEVEL TOTAL 2023-02-16 Thao Romero V. [place] o f 11:15:00 [place] [facility] ALBUMIN LEVEL 2023-02-16 Thao Romero V. [place] of 11:15:00 [place] [facility] ALKALINE PHOSPHATASE 2023-02-16 Thao Romero V. [place] of 11:15:00 [place] [facility] ALANINE AMINOTRANSFERASE 2023-02-16 Thao Romero V. Univers ity of 11:15:00 [place] [facility] ASPARTATE AMINOTRANSFERASE 2023-02-16 Thao Romero V. Unive rsity of 11:15:00 [place] [facility] TOTAL PROTEIN 2023-02-16 Thao Romero V. [place] of 11:15:00 [place] [facility] FRACTIONATED BILIRUBIN 2023-02-16 Thao Romero V. Universit y of 11:15:00 [place] [facility] Results CBC 2023-02-16 Mark [place] of 11:15:00 [facility] MANUAL DIFFERENTIAL 2023-02-16 Mark [place] o f 11:15:00 [facility] POC GLUCOSE SCREEN 2023-02-16 [facility] o f 02:26:00 [facility] POC GLUCOSE SCREEN 2023-02-15 [facility] o f 22:30:00 [facility] POC GLUCOSE SCREEN 2023-02-15 [facility] o f 17:15:00 [facility] POC GLUCOSE SCREEN 2023-02-15 [facility] o f 12:03:00 [facility] MAGNESIUM LEVEL 2023-02-15 [facility] 11:24:00 [facility] PHOSPHORUS LEVEL 2023-02-15 [facility] 11:24:00 [facility] COMPLETE BLOOD COUNT W/ 2023-02-15 Mark, [facility] DIFFERENTIAL 11:24:00 [facility] COMPREHENSIVE METABOLIC PANEL 2023-02-15 Thao Romero V. iversity of 11:24:00 [place] [facility] GLUCOSE LEVEL 2023-02-15 Thao Romero V. [place] of 11:24:00 [place] [facility] BLOOD UREA NITROGEN 2023-02-15 Thao Romero V. [place] o f 11:24:00 [place] [facility] ELECTROLYTE PANEL 2023-02-15 Thao Romero V. [facility] 11:24:00 [place] [facility] SERUM CREATININE 2023-02-15 Thao Romero V. [place] of 11:24:00 [place] [facility] .GLOMERULAR FILTRATION RATE 2023-02-15 Thao Romero V. Univ ersity of 11:24:00 [place] [facility] CALCIUM LEVEL TOTAL 2023-02-15 Thao Romero V. [place] o f 11:24:00 [place] [facility] ALB[facility] 2023-02-15 Taho Romero V. [place] of 11:24:00 [place] [facility] ALKALINE PHOSPHATASE 2023-02-15 Thao Romero V. [place] of 11:24:00 [place] [facility] ALANINE AMINOTRANSFERASE 2023-02-15 Romero, Son V. Univers ity of 11:24:00 [place] Liane olivier [facility] ASPARTATE AMINOTRANSFERASE 2023-02-15 Thao Romero V. Unive rsity of 11:24:00 [place] Liane olivier [facility] TOTAL PROTEIN 2023-02-15 Thao Romero V. University of 11:24:00 [place] [facility] FRACTIONATED BILIRUBIN 2023-02-15 Thao Romero V. Universit y of 11:24:00 [place] [facility] Results CBC 2023-02-15 Mark [place] of 11:24:00 [facility] MANUAL DIFFERENTIAL 2023-02-15 Mark [place] o f 11:24:00 [facility] POC GLUCOSE SCREEN 2023-02-15 [facility] o f 02:05:00 [facility] POC GLUCOSE SCREEN 2023-02-14 [facility] o f 22:46:00 [facility] POC GLUCOSE SCREEN 2023-02-14 [facility] o f 16:34:00 [facility] POC GLUCOSE SCREEN 2023-02-14 [facility] o f 13:58:00 [facility] MAGNESIUM LEVEL 2023-02-14 Mark [place] of 11:24:00 [facility] PHOSPHORUS LEVEL 2023-02-14 Mark [place] of 11:24:00 [facility] COMPLETE BLOOD COUNT W/ 2023-02-14 Mark [facility] DIFFERENTIAL 11:24:00 [facility] COMPREHENSIVE METABOLIC PANEL 2023-02-14 Thao Romero V. Un iversity of 11:24:00 [place] Liane olivier [facility] GLUCOSE LEVEL 2023-02-14 Thao Romero V. [place] of 11:24:00 [place] Rob [facility] BLOOD UREA NITROGEN 2023-02-14 Thao Romero V. [place] o f 11:24:00 [place] Liane olivier [facility] ELECTROLYTE PANEL 2023-02-14 Thao Romero V. [place] of 11:24:00 [place] [facility] SERUM CREATININE 2023-02-14 Thao Romero . [place] of 11:24:00 [place] [facility] .GLOMERULAR FILTRATION RATE 2023-02-14 Thao Romero V. [facility] ersity of 11:24:00 [place] [facility] CALCIUM LEVEL TOTAL 2023-02-14 Thao Romero [facility] o f 11:24:00 [place] [facility] ALBUMIN LEVEL 2023-02-14 Thao Romero . [place] of 11:24:00 [place] [facility] ALKALINE PHOSPHATASE 2023-02-14 Thao Romero . [place] of 11:24:00 [place] [facility] ALANINE AMINOTRANSFERASE 2023-02-14 [facility] 11:24:00 [place] [facility] ASPARTATE AMINOTRANSFERASE 2023-02-14 Thao Romero [facility] rsity of 11:24:00 [place] [facility] TOTAL PROTEIN 2023-02-14 Thao Romero [facility] of 11:24:00 [place] [facility] FRACTIONATED BILIRUBIN 2023-02-14 [facility] of 11:24:00 [place] [facility] Results CBC 2023-02-14 [facility] of 11:24:00 [facility] MANUAL DIFFERENTIAL 2023-02-14 [facility] o f 11:24:00 [facility] POC GLUCOSE SCREEN 2023-02-14 [facility] o f 02:44:00 [facility] POC GLUCOSE SCREEN 2023-02-13 [facility] o f 23:32:00 [facility] POC GLUCOSE SCREEN 2023-02-13 [facility] o f 18:19:00 [facility] POC GLUCOSE SCREEN 2023-02-13 [facility] o f 12:37:00 [facility] MAGNESIUM LEVEL 2023-02-13 [facility] 11:42:00 [facility] PHOSPHORUS LEVEL 2023-02-13 Mark, [place] of 11:42:00 [facility] COMPLETE BLOOD COUNT W/ 2023-02-13 Noel Floresi ty of DIFFERENTIAL 11:42:00 [facility] COMPREHENSIVE METABOLIC PANEL 2023-02-13 Thao Romero V. Un iversity of 11:42:00 [place] [facility] GLUCOSE LEVEL 2023-02-13 Thao Romero V. University of 11:42:00 [place] [facility] BLOOD UREA NITROGEN 2023-02-13 Thao Romero V. University o f 11:42:00 [place] [facility] ELECTROLYTE PANEL 2023-02-13 Thao Romero V. [place] of 11:42:00 [place] [facility] SERUM CREATININE 2023-02-13 Thao Romero V. [place] of 11:42:00 [place] [facility] .GLOMERULAR FILTRATION RATE 2023-02-13 Thao Romero V. Univ ersity of 11:42:00 [place] [facility] CALCIUM LEVEL TOTAL 2023-02-13 Thao Romero V. University o f 11:42:00 [place] [facility] ALBUMIN LEVEL 2023-02-13 Thao Romero V. University of 11:42:00 [place] [facility] ALKALINE PHOSPHATASE 2023-02-13 Thao Romero V. University of 11:42:00 Bere GRIFFIN [facility] ALANINE AMINOTRANSFERASE 2023-02-13 Thao Romero V. Univers ity of 11:42:00 [place] [facility] ASPARTATE AMINOTRANSFERASE 2023-02-13 Thao Romero V. Unive rsity of 11:42:00 [place] [facility] TOTAL PROTEIN 2023-02-13 Thao Romero V. University of 11:42:00 [place] [facility] FRACTIONATED BILIRUBIN 2023-02-13 Thao Romero V. Universit y of 11:42:00 [place] [facility] Results CBC 2023-02-13 Mark [facility] 11:42:00 [facility] MANUAL DIFFERENTIAL 2023-02-13 Mark [place] o f 11:42:00 [facility] POC GLUCOSE SCREEN 2023-02-13 [facility] o f 03:26:00 [facility] POC GLUCOSE SCREEN 2023-02-13 [facility] o f 00:20:00 [facility] POC GLUCOSE SCREEN 2023-02-12 [facility] o f 20:06:00 [facility] POC GLUCOSE SCREEN 2023-02-12 [facility] o f 15:18:00 [facility] GENERAL LABORATORY ADD ON 2023-02-12 Kimberli Cortes sity of TEST 14:33:00 [place] [facility] POC GLUCOSE SCREEN 2023-02-12 [facility] o f 13:55:00 [facility] MAGNESIUM LEVEL 2023-02-12 [facility] 10:34:00 [facility] PHOSPHORUS LEVEL 2023-02-12 Mark [facility] 10:34:00 [facility] COMPLETE BLOOD COUNT W/ 2023-02-12 Mark [facility] ty of DIFFERENTIAL 10:34:00 [facility] [place] [facility] COMPREHENSIVE METABOLIC PANEL 2023-02-12 Thao Romero V. Un iversity of 10:34:00 [place] [facility] GLUCOSE LEVEL 2023-02-12 Thao Romero V. [facility] 10:34:00 [place] [facility] BLOOD UREA NITROGEN 2023-02-12 Thao Romero V. [place] o f 10:34:00 [place] [facility] ELECTROLYTE PANEL 2023-02-12 Thao Romero V. [facility] 10:34:00 [place] [facility] SERUM CREATININE 2023-02-12 Thao Romero V. [place] of 10:34:00 [place] [facility] .GLOMERULAR FILTRATION RATE 2023-02-12 Thao Romero V. [facility] ersity of 10:34:00 [place] [facility] CALCIUM LEVEL TOTAL 2023-02-12 RomeroThao huynh V. [place] o f 10:34:00 [place] Rob [facility] ALBUMIN LEVEL 2023-02-12 Thao Romero V. [place] of 10:34:00 [place] [facility] ALKALINE PHOSPHATASE 2023-02-12 Thao Romero . [place] of 10:34:00 [place] [facility] ALANINE AMINOTRANSFERASE 2023-02-12 Thao Romero . Univers ity of 10:34:00 [place] [facility] ASPARTATE AMINOTRANSFERASE 2023-02-12 Thao Romero [facility]. [facility] rsity of 10:34:00 [place] [facility] TOTAL PROTEIN 2023-02-12 Thao Romero . [place] of 10:34:00 [place] [facility] FRACTIONATED BILIRUBIN 2023-02-12 Thao Romero V. Universit y of 10:34:00 [place] [facility] Results CBC 2023-02-12 [facility] of 10:34:00 [facility] MANUAL DIFFERENTIAL 2023-02-12 [facility] o f 10:34:00 [facility] [place] [facility] PROCALCITONIN 2023-02-12 [facility] of 10:34:00 [facility] POC GLUCOSE SCREEN 2023-02-12 [facility] o f 03:16:00 Silvia Blackburn MD [facility] POC GLUCOSE SCREEN 2023-02-12 [facility] o f 00:01:00 Silvia [place] [facility] POC GLUCOSE SCREEN 2023-02-11 [facility] o f 18:59:00 Silvia [place] [facility] POC GLUCOSE SCREEN 2023-02-11 [facility] o f 13:46:00 [facility] MAGNESIUM L[facility]EL 2023-02-11 Mark [place] of 10:42:00 [facility] [place] [facility] PHOSPHORUS LEVEL 2023-02-11 Mark [place] of 10:42:00 [facility] COMPLETE BLOOD COUNT W/ 2023-02-11 Noel Floresi ty of DIFFERENTIAL 10:42:00 [facility] COMPREHENSIVE METABOLIC PANEL 2023-02-11 Thao Romero V. Un iversity of 10:42:00 [place] [facility] GLUCOSE LEVEL 2023-02-11 Thao Romero V. [place] of 10:42:00 [place] [facility] BLOOD UREA NITROGEN 2023-02-11 Thao Romero V. [place] o f 10:42:00 [place] [facility] ELECTROLYTE PANEL 2023-02-11 Thao Romero V. [facility] 10:42:00 [place] [facility] SERUM CREATININE 2023-02-11 Thao Romero V. [facility] 10:42:00 [place] [facility] .GLOMERULAR FILTRATION RATE 2023-02-11 Thao Romero V. Univ ersity of 10:42:00 [place] [facility] CALCIUM LEVEL TOTAL 2023-02-11 Thao Romero V. [place] o f 10:42:00 [place] [facility] ALBUMIN LEVEL 2023-02-11 Thao Romero V. [place] of 10:42:00 [place] [facility] ALKALINE PHOSPHATASE 2023-02-11 Thao Romero V. [place] of 10:42:00 [place] [facility] ALANINE AMINOTRANSFERASE 2023-02-11 Thao Romero V. Univers ity of 10:42:00 [place] [facility] ASPARTATE AMINOTRANSFERASE 2023-02-11 Thao Romero V. Unive rsity of 10:42:00 [place] [facility] TOTAL PROTEIN 2023-02-11 Thao Romero V. [place] of 10:42:00 [place] [facility] FRACTIONATED BILIRUBIN 2023-02-11 Thao Romero V. Universit y of 10:42:00 [place] [facility] [facility] Results CBC 2023-02-11 [place] of 10:42:00 [facility] MANUAL DIFFERENTIAL 2023-02-11 [facility] o f 10:42:00 [facility] CT MAXILLOFACIAL AREA W 2023-02-11 [facility] ity of CONTRAST 09:15:00 Closplint Bere GIRFFIN [facility] POC GLUCOSE SCREEN 2023-02-11 [facility] o f 03:42:00 [facility] POC GLUCOSE SCREEN 2023-02-10 [facility] o f 22:17:00 [facility] POC GLUCOSE SCREEN 2023-02-10 [facility] o f 17:27:00 [facility] POC GLUCOSE SCREEN 2023-02-10 [facility] o f 13:52:00 [facility] MAGNESIUM LEVEL 2023-02-10 [facility] 10:43:00 [facility] PHOSPHORUS LEVEL 2023-02-10 [facility] of 10:43:00 [facility] COMPLETE BLOOD COUNT W/ 2023-02-10 [facility] ty of DIFFERENTIAL 10:43:00 [facility] [place] [facility] COMPREHENSIVE METABOLIC PANEL 2023-02-10 Thao Romero V. Un iversity of 10:43:00 [place] [facility] GLUCOSE LEVEL 2023-02-10 Thao Romero V. [place] 10:43:00 [place] [facility] BLOOD UREA NITROGEN 2023-02-10 Thao Romero V. [place] o f 10:43:00 [place] [facility] ELECTROLYTE PANEL 2023-02-10 Thao Romero V. [place] of 10:43:00 Bere GRIFFIN [facility] SERUM CREATININE 2023-02-10 Thao Romero V. [place] of 10:43:00 [place] [facility] .GLOMERULAR FILTRATION RATE 2023-02-10 Thao Romero V. Univ ersity of 10:43:00 [place] [facility] CALCIUM LEVEL TOTAL 2023-02-10 Thao Romero V. [place] o f 10:43:00 [place] [facility] ALBUMIN LEVEL 2023-02-10 Thao Romero V. University of 10:43:00 [place] [facility] ALKALINE PHOSPHATASE 2023-02-10 Thao Romero V. University of 10:43:00 [place] [facility] ALANINE AMINOTRANSFERASE 2023-02-10 Thao Romero V. Univers ity of 10:43:00 [place] [facility] ASPARTATE AMINOTRANSFERASE 2023-02-10 Thao Romero V. Unive rsity of 10:43:00 [place] [facility] TOTAL PROTEIN 2023-02-10 Thao Romero V. University of 10:43:00 [place] [facility] FRACTIONATED BILIRUBIN 2023-02-10 Thao Romero V. Universit y of 10:43:00 [place] [facility] Results CBC 2023-02-10 [place] [facility] 10:43:00 [facility] MANUAL DIFFERENTIAL 2023-02-10 [facility] o f 10:43:00 [facility] POC GLUCOSE SCREEN 2023-02-10 [facility] o f 03:27:00 [facility] POC GLUCOSE SCREEN 2023-02-09 [facility] o f 22:11:00 [facility] POC GLUCOSE SCREEN 2023-02-09 [facility] o f 18:18:00 [facility] POC GLUCOSE SCREEN 2023-02-09 [facility] o f 13:12:00 [facility] MAGNESIUM LEVEL 2023-02-09 [place] [facility] 10:37:00 [facility] PHOSPHORUS LEVEL 2023-02-09 [place] of 10:37:00 [facility] COMPLETE BLOOD COUNT W/ 2023-02-09 [facility] DIFFERENTIAL 10:37:00 [facility] COMPREHENSIVE METABOLIC PANEL 2023-02-09 Thao Romero V. Un iversity of 10:37:00 [place] [facility] CREATINE KINASE 2023-02-09 Shelby José [place] 10:37:00 [place] [facility] GLUCOSE LEVEL 2023-02-09 Thao Romero V. [place] of 10:37:00 [place] [facility] BLOOD UREA NITROGEN 2023-02-09 Thao Romero V. [place] o f 10:37:00 [place] [facility] ELECTROLYTE PANEL 2023-02-09 Thao Romero V. [place] of 10:37:00 [place] [facility] SERUM CREATININE 2023-02-09 Thao Romero V. [place] 10:37:00 [place] [facility] .GLOMERULAR FILTRATION RATE 2023-02-09 Thao Romero V. [facility] ersity of 10:37:00 [place] [facility] CALCIUM LEVEL TOTAL 2023-02-09 Thao Romero V. [place] o f 10:37:00 [place] [facility] ALBUMIN LEVEL 2023-02-09 Thao Romero V. [place] 10:37:00 [place] [facility] ALKALINE PHOSPHATASE 2023-02-09 Thao Romero V. [place] 10:37:00 [place] [facility] ALANINE AMINOTRANSFERASE 2023-02-09 Thao Romero V. Univers ity of 10:37:00 [place] [facility] ASPARTATE AMINOTRANSFERASE 2023-02-09 Thao Romero V. [facility] rsity of 10:37:00 [place] [facility] TOTAL PROTEIN 2023-02-09 Thao Romero V. [place] 10:37:00 [place] [facility] FRACTIONATED BILIRUBIN 2023-02-09 Thao Romero V. Universit y of 10:37:00 [place] [facility] Results CBC 2023-02-09 [place] of 10:37:00 [facility] MANUAL DIFFERENTIAL 2023-02-09 [place] o f 10:37:00 [facility] POC GLUCOSE SCREEN 2023-02-09 Derrick Gilli ty of 03:21:00 [place] [facility] POC GLUCOSE SCREEN 2023-02-08 Derrick Gill Universi ty of 23:32:00 Bere olivier [facility] US ARM VENOUS DOPPLER 2023-02-08 Derrick Gill Unive rsity of BILATERAL 23:28:54 [place] [facility] ECHOCARDIOGRAM 2D COMPLETE W 2023-02-08 Thao Romero V. Uni versity of CONTRAST 19:23:53 Bere GRIFFIN [facility] soy [facility] POC GLUCOSE SCREEN 2023-02-08 Derrick Gill Universi ty of 17:21:00 [place] [facility] POC GLUCOSE SCREEN 2023-02-08 SebastianDerrick Quintero Universi ty of 12:46:00 [place] [facility] MAGNESIUM LEVEL 2023-02-08 [facility] of 11:14:00 [facility] PHOSPHORUS LEVEL 2023-02-08 [facility] of 11:14:00 [facility] COMPLETE BLOOD COUNT W/ 2023-02-08 Mark [facility] ty of DIFFERENTIAL 11:14:00 [facility] COMPREHENSIVE METABOLIC PANEL 2023-02-08 Thao Romero V. Un iversity of 11:14:00 [facility] 2023-02-08 Thao Romero V. [facility] 11:14:00 [place] [facility] BLOOD UREA NITROGEN 2023-02-08 Thao Romero V. [place] f 11:14:00 [facility] ELECTROL[facility] PANEL 2023-02-08 Thao Romero V. [place] 11:14:00 [place] [facility] SERUM CREATININE 2023-02-08 Thao Romero V. [place] 11:14:00 [place] [facility] .GLOMERULAR FILTRATION RATE 2023-02-08 Thao Romero V. Univ ersity of 11:14:00 Bere GRIFFIN [facility] CALCIUM LEVEL TOTAL 2023-02-08 Thao Romero V. [place] f 11:14:00 [place] [facility] ALBUMIN LEVEL 2023-02-08 Thao Romero V. [place] 11:14:00 [place] [facility] ALKALINE PHOSPHATASE 2023-02-08 Thao Romero V. [place] 11:14:00 [place] [facility] ALANINE AMINOTRANSFERASE 2023-02-08 Thao Romero V. Univers ity of 11:14:00 [place] [facility] ASPARTATE AMINOTRANSFERASE 2023-02-08 Thao Romero V. Unive rsity of 11:14:00 [place] [facility] TOTAL PROTEIN 2023-02-08 Thao Romero V. [place] 11:14:00 [place] [facility] FRACTIONATED BILIRUBIN 2023-02-08 RomeroThao huynh V. Universit y of 11:14:00 [place] [facility] Results CBC 2023-02-08 [facility] 11:14:00 [facility] MANUAL DIFFERENTIAL 2023-02-08 [facility] o f 11:14:00 [facility] POC GLUCOSE SCREEN 2023-02-08 Morgan-Dellan, Derrick Universi ty of 02:47:00 [place] [facility] POC GLUCOSE SCREEN 2023-02-08 Morgan-Dellan, Derrick Universi ty of 00:12:00 [place] [facility] POC GLUCOSE SCREEN 2023-02-07 Morgan-Dellan, Derrick Universi ty of 22:43:00 [place] [facility] POC GLUCOSE SCREEN 2023-02-07 Morgan-Dellan, Derrick Universi ty of 18:16:00 [place] [facility] POC GLUCOSE SCREEN 2023-02-07 Morgan-Dellan, Derrick Universi ty of 13:48:00 [place] [facility] BLOODCULTURE 2023-02-07 Ismael Tim [place] 11:52:00 [place] [facility] HIV-1/2 ANTIGEN AND 2023-02-07 Thao Romero V. [place] o f ANTIBODIES, FOURTH GENERATION 11:52:00 Dereck astudillo [facility] HEPATITIS B SURFACE ANTIGEN, 2023-02-07 Thao Romero V. Uni versity of SERUM 11:52:00 [place] [facility] HEPATITIS B CORE ANTIBODY 2023-02-07 Thao Romero V. Univer sity of 11:52:00 [place] [facility] HEPATITIS C VIRUS ANTIBODY 2023-02-07 Thao Romero V. Unive rsity of 11:52:00 [place] [facility] FERRITIN LVL 2023-02-07 Thao Romero V. [place] 11:52:00 [place] [facility] TRANSFERRIN 2023-02-07 Thao Romero V. [facility] 11:52:00 [place] [facility] IRON LEVEL 2023-02-07 Thao Romero V. [place] 11:52:00 [place] [facility] MAGNESIUM LEVEL 2023-02-07 [facility] 11:52:00 [facility] PHOSPHORUS LEVEL 2023-02-07 [facility] 11:52:00 [facility] COMPLETE BLOOD COUNT W/ 2023-02-07 Mark [facility] ty of DIFFERENTIAL 11:52:00 [facility] COMPREHENSIVE METABOLIC PANEL 2023-02-07 Thao Romero V. Un iversity of 11:52:00 [place] [facility] LIPID PANEL 2023-02-07 Thao Romero V. [place] 11:52:00 [place] [facility] HEMOGLOBIN A1C 2023-02-07 Thao Romero V. [place] 11:52:00 [place] [facility] GLUCOSE LEVEL 2023-02-07 Thao Romero V. [place] 11:52:00 [place] [facility] BLOOD UREA NITROGEN 2023-02-07 Thao Romero V. [place] o f 11:52:00 [place] [facility] ELECTROLYTE PANEL 2023-02-07 Thao Romero V. [place] 11:52:00 [place] [facility] SERUM CREATININE 2023-02-07 Thao Romero V. [place] 11:52:00 [place] [facility] .GLOMERULAR FILTRATION RATE 2023-02-07 Thao Romero V. Univ ersity of 11:52:00 [place] [facility] CALCIUM LEVEL TOTAL 2023-02-07 Thao Romero V. [place] o f 11:52:00 [place] [facility] ALBUMIN LEVEL 2023-02-07 Thao Romero V. [facility] 11:52:00 [place] [facility] ALKALINE PHOSPHATASE 2023-02-07 Thao Romero V. [facility] 11:52:00 [place] [facility] ALANINE AMINOTRANSFERASE 2023-02-07 Thao Romero V. [facility] ity of 11:52:00 [place] [facility] ASPARTATE AMINOTRANSFERASE 2023-02-07 Thao Romero V. Unive rsity of 11:52:00 [place] [facility] TOTAL PROTEIN 2023-02-07 Thao Romero V. [facility] 11:52:00 [place] [facility] FRACTIONATED BILIRUBIN 2023-02-07 Thao Romero V. [facility] 11:52:00 [place] [facility] Results CBC 2023-02-07 [facility] 11:52:00 [facility] MANUAL DIFFERENTIAL 2023-02-07 [facility] o f 11:52:00 [facility] C DIFFICILE DNA ASSAY 2023-02-07 Thao Romero V. [facility] 10:18:00 [place] [facility] C DIFFICILE DNA ASSAY PATH 2023-02-07 Thao Romero V. [facility] rsity of REVIEW 10:18:00 [place] [facility] GASTROINTESTINAL MULTIPLEX 2023-02-07 Thao Romero V. Unive rsity of PANEL 10:16:00 [place] [facility] GASTROINTESTINAL MULTIPLEX 2023-02-07 Thao Romero V. [facility] rsity of PANEL PATH REVIEW 10:16:00 [place] MD Suraj bates [facility] POC GLUCOSE SCREEN 2023-02-07 Thao Romero V. [facility] 03:51:00 [place] [facility] POC GLUCOSE SCREEN 2023-02-07 Thao Romero V. [facility] 00:28:00 [place] [facility] EKG, 12-LEAD (PORTABLE) 2023-02-07 [facility] 00:[facility]00 [place] [facility] POC GLUCOSE SCREEN 2023-02-06 Thao Romero V. University of 22:13:00 [place] MD Liane olivier [facility] POC GLUCOSE SCREEN 2023-02-06 Thao Romero V. University of 19:18:00 [place] [facility] POC GLUCOSE SCREEN 2023-02-06 Thao Romero V. University of 18:26:00 [place] MD Rob [facility] GENERAL LABORATORY ADD ON 2023-02-06 Thao Romero V. [facility] sity of TEST 16:44:00 [place] [facility] soy [facility] BLOODCULTURE 2023-02-06 [facility] 16:11:00 [facility] POC GLUCOSE SCREEN 2023-02-06 [facility] [place] 14:46:00 [place] [facility] POC GLUCOSE SCREEN 2023-02-06 [facility] Amanda [place] of 12:40:00 [place] [facility] POC GLUCOSE SCREEN 2023-02-06 [facility] of 08:20:00 [place] [facility] BASIC METABOLIC PANEL, 2023-02-06 Noel Floresit y of CALCIUM TOTAL 08:05:00 [facility] MAGNESIUM LEVEL 2023-02-06 [facility] 08:05:00 [facility] PHOSPHORUS LEVEL 2023-02-06 [facility] 08:05:00 [facility] COMPLETE BLOOD COUNT W/ 2023-02-06 Noel Floresi ty of DIFFERENTIAL 08:05:00 [facility] GLUCOSE LEVEL 2023-02-06 Cathie Meneses [facility] 08:05:00 [place] [facility] BLOOD UREA NITROGEN 2023-02-06 Cathie Meneses [facility] 08:05:00 [place] [facility] ELECTROLYTE PANEL 2023-02-06 Cathie Meneses [facility] 08:05:00 [place] [facility] SERUM CREATININE 2023-02-06 Cathie Meneses [facility] 08:05:00 [place] [facility] .GLOMERULAR FILTRATION RATE 2023-02-06 Cathie Meneses Uni versity of 08:05:00 [place] [facility] CALCIUM LEVEL TOTAL 2023-02-06 Cathie Meneses [facility] 08:05:00 [place] [facility] Results CBC 2023-02-06 Cathie Meneses [facility] 08:05:00 [place] [facility] MANUAL DIFFERENTIAL 2023-02-06 Cathie Meneses [facility] 08:05:00 [place] [facility] NT PRO BNP 2023-02-06 Cathie Meneses [facility] 08:05:00 [place] [facility] PROCALCITONIN 2023-02-06 Cathie Meneses [facility] 08:05:00 [place] [facility] C REACTIVE PROTEIN 2023-02-06 Cathie Meneses [place] o f 08:05:00 [place] [facility] POC GLUCOSE SCREEN 2023-02-06 Amanda Proctor 06:17:00 [place] [facility] TROPONIN T 2023-02-06 Irina Houston [facility] 06:09:00 [place] [facility] URINE CULTURE 2023-02-06 Irina Houston [facility] 05:40:00 [place] [facility] PROTHROMBIN TIME 2023-02-06 [facility] 01:26:00 [place] [facility] APTT 2023-02-06 [facility] 01:26:00 [place] [facility] D DIMER 2023-02-06 [facility] 01:26:00 [place] [facility] LACTIC ACID, VENOUS 2023-02-06 [facility] o f 01:26:00 [place] [facility] XR ABDOMEN AP 2023-02-05 Amanda Proctor 23:59:27 [place] [facility] XR CHEST 1 VW 2023-02-05 Amanda Proctor 23:57:49 [place] [facility] COVID-19 (SARS-COV-2) 2023-02-05 Amanda Proctor of ASYMPTOMATIC-LT 22:09:00 [place] MD Liane olivier [facility] POC GLUCOSE SCREEN 2023-02-05 Deneen Guevara [place] of 21:27:00 [place] Liane olivier [facility] BLOODCULTURE 2023-02-05 Esthela, Amanda Haq of 20:39:00 [place] Liane olivier [facility] BLOODCULTURE 2023-02-05 Esthela, Amanda Haq of 20:30:00 [place] Liane olivier [facility] COMPLETE BLOOD COUNT W/ 2023-02-05 Esthela, Amanda Coheni ty of DIFFERENTIAL 20:30:00 [place] Liane olivier [facility] MAGNESIUM LEVEL 2023-02-05 Stevos, Amanda Haq of 20:30:00 [place] Liane olivier [facility] PHOSPHORUS LEVEL 2023-02-05 Esthela, Amanda Haq of 20:30:00 [place] Liane olivier [facility] NT PRO BNP 2023-02-05 Esthela, Amanda Haq of 20:30:00 [place] Liane olivier [facility] TROPONIN T 2023-02-05 Esthela, Amanda Haq of 20:30:00 [place] Liane olivier [facility] CREATINE KINASE 2023-02-05 Esthela, Amanda Haq of 20:30:00 [place] Liane olivier [facility] CKMB 2023-02-05 Esthela, Amanda Haq of 20:30:00 [place] Liane olivier [facility] C REACTIVE PROTEIN 2023-02-05 Esthela, Amanda Haq of 20:30:00 [place] Liane olivier [facility] COMPREHENSIVE METABOLIC PANEL 2023-02-05 Amanda Proctor iversity of 20:30:00 [place] Liane olivier [facility] PROCALCITONIN 2023-02-05 Esthela, Amanda Haq of 20:30:00 [place] Liane olivier [facility] AMYLASE LEVEL 2023-02-05 Stevos, Amanda Haq of 20:30:00 [place] Liane olivier [facility] LIPASE LEVEL 2023-02-05 Esthela, Amanda Haq of 20:30:00 [place] MD Liane olivier [facility] Results CBC 2023-02-05 Esthela, Amanda Haq of 20:30:00 [place] Liane olivier [facility] MANUAL DIFFERENTIAL 2023-02-05 Viets, Amanda Haq o f 20:30:00 [place] [facility] GLUCOSE LEVEL 2023-02-05 Esthela, Amanda [place] of 20:30:00 [place] [facility] BLOOD UREA NITROGEN 2023-02-05 Esthela, Amanda [place] o f 20:30:00 [place] [facility] ELECTROLYTE PANEL 2023-02-05 Esthela, Amanda [place] of 20:30:00 [place] [facility] SERUM CREATININE 2023-02-05 Esthela, Amanda [place] of 20:30:00 [place] [facility] .GLOMERULAR FILTRATION RATE 2023-02-05 Amanda Proctor [facility] ersity of 20:30:00 [place] [facility] CALCIUM LEVEL TOTAL 2023-02-05 Amanda Proctor o f 20:30:00 [place] [facility] ALBUMIN LEVEL 2023-02-05 Amanda Proctor [place] of 20:30:00 [place] [facility] ALKALINE PHOSPHATASE 2023-02-05 Amanda Proctor [place] 20:30:00 [place] [facility] ALANINE AMINOTRANSFERASE 2023-02-05 Amanda Proctor [facility] ity of 20:30:00 [place] [facility] ASPARTATE AMINOTRANSFERASE 2023-02-05 Amanda Proctor [facility] rsity of 20:30:00 [place] [facility] TOTAL PROTEIN 2023-02-05 Amanda Proctor of 20:30:00 [place] [facility] FRACTIONATED BILIRUBIN 2023-02-05 Amanda Proctorit y of 20:30:00 [place] [facility] URINALYSIS MICROSCOPIC 2023-02-05 Irina [facility] ty of 05:39:00 [place] [facility] EKG, 12-LEAD (PORTABLE) 2023-02-05 Amanda Proctori ty of 00:00:00 [place] [facility] COMPREHENSIVE METABOLIC PANEL 2023-02-04 Vaibhav Rosario of 17:33:52 [place] [facility] COMPLETE BLOOD COUNT W/ 2023-02-04 Vaibhav Rosario rsity of DIFFERENTIAL 17:33:52 [place] [facility] MAGNESIUM LEVEL 2023-02-04 [facility] of 17:33:52 Bere olivier [facility] PHOSPHORUS LEVEL 2023-02-04 [facility] o f 17:33:52 Bere olivier [facility] GLUCOSE LEVEL 2023-02-04 [facility] of 17:33:52 Bere olivier [facility] BLOOD UREA NITROGEN 2023-02-04 [facility] [place] y of 17:33:52 Bere olivier [facility] ELECTROLYTE PANEL 2023-02-04 [facility] of 17:33:52 Bere olivier [facility] SERUM CREATININE 2023-02-04 [facility] o f 17:33:52 Bere olivier [facility] .GLOMERULAR FILTRATION RATE 2023-02-04 Vaibhav Rosario U niversity of 17:33:52 Bere olivier [facility] CALCIUM LEVEL TOTAL 2023-02-04 [facility], [facility] y of 17:33:52 Bere olivier [facility] ALBUMIN LEVEL 2023-02-04 [facility] of 17:33:52 Bere olivier [facility] ALKALINE PHOSPHATASE 2023-02-04 [facility] ty of 17:33:52 Bere olivier [facility] ALANINE AMINOTRANSFERASE 2023-02-04 [employer] [facility] ersity of 17:33:52 Bere olivier [facility] ASPARTATE AMINOTRANSFERASE 2023-02-04 Kenny StromsburgVaibhav lopez iversity of 17:33:52 Bere olivier [facility] TOTAL PROTEIN 2023-02-04 [facility], [facility] of 17:33:52 Bere olivier [facility] FRACTIONATED BILIRUBIN 2023-02-04 [facility], [facility] sity of 17:33:52 Bere olivier [facility] Results CBC 2023-02-04 [facility] of 17:33:52 Bere olivier [facility] MANUAL DIFFERENTIAL 2023-02-04 [employer] [facility] y of 17:33:52 Bere olivier [facility] POC GLUCOSE SCREEN 2023-02-01 Simbaradha Deshpande, Universit y of 18:19:00 Elian olivier [facility] POC GLUCOSE SCREEN 2023-02-01 Simbaradha Deshpande, Universit y of 12:47:00 Elian olivier [facility] BASIC METABOLIC PANEL, 2023-02-01 [facility] y of CALCIUM TOTAL 09:00:00 [place] MD Liane olivier [facility] MAGNESIUM LEVEL 2023-02-01 [facility] of 09:00:00 [place] Liane olivier [facility] PHOSPHORUS LEVEL 2023-02-01 NabeelFormerly [facility] of 09:00:00 [place] Liane olivier [facility] COMPLETE BLOOD COUNT W/ 2023-02-01 [facility] ty of DIFFERENTIAL 09:00:00 [place] Liane olivier [facility] GLUCOSE LEVEL 2023-02-01 [facility] of 09:00:00 [place] Liane olivier [facility] BLOOD UREA NITROGEN 2023-02-01 [facility] o f 09:00:00 [place] Liane olivier [facility] ELECTROLYTE PANEL 2023-02-01 [facility] of 09:00:00 [place] Liane olivier [facility] SERUM CREATININE 2023-02-01 [facility] of 09:00:00 [place] MD Rob [facility] .GLOMERULAR FILTRATION RATE 2023-02-01 [facility] ersity of 09:00:00 [place] Liane olivier [facility] CALCIUM LEVEL TOTAL 2023-02-01 [facility] o f 09:00:00 [place] MD Liane olivier [facility] Results CBC 2023-02-01 [facility] of 09:00:00 [place] Liane olivier [facility] MANUAL DIFFERENTIAL 2023-02-01 [facility] o f 09:00:00 Bere olivier [facility] POC GLUCOSE SCREEN 2023-02-01 Simmarisa Deshpande, Universit y of 02:36:00 Elian [facility] POC GLUCOSE SCREEN 2023-01-31 Simbaradha Deshpande, Universit y of 21:55:00 Eliansuzi Rob [facility] POC GLUCOSE SCREEN 2023-01-31 Simbaradha Saurabh, Universit y of 17:13:00 Eliansuzi olivier [facility] POC GLUCOSE SCREEN 2023-01-31 Simbaradha Saurabh, Universit y of 13:08:00 Elian Blackburn [facility] BASIC METABOLIC PANEL, 2023-01-31 [facility] y of CALCIUM TOTAL 08:15:00 [place] Liane olivier [facility] MAGNESIUM LEVEL 2023-01-31 [facility] of 08:15:00 [place] [facility] PHOSPHORUS LEVEL 2023-01-31 NabeelFormerly [facility] of 08:15:00 [place] [facility] COMPLETE BLOOD COUNT W/ 2023-01-31 [facility] ty of DIFFERENTIAL 08:15:00 [place] [facility] GLUCOSE LEVEL 2023-01-31 [facility] of 08:15:00 [place] [facility] BLOOD UREA NITROGEN 2023-01-31 [facility] o f 08:15:00 [place] [facility] soy [facility] ELECTROLYTE PANEL 2023-01-31 [facility] of 08:15:00 [place] [facility] SERUM CREATININE 2023-01-31 [facility] of 08:15:00 [place] [facility] .GLOMERULAR FILTRATION RATE 2023-01-31 [facility] ersity of 08:15:00 [place] [facility] CALCIUM LEVEL TOTAL 2023-01-31 [facility] o f 08:15:00 [place] [facility] Results CBC 2023-01-31 [facility] of 08:15:00 [place] Liane olivier [facility] MANUAL DIFFERENTIAL 2023-01-31 [facility] o f 08:15:00 [place] Liane olivier [facility] POC GLUCOSE SCREEN 2023-01-31 Simbaradha Deshpande, Universit y of 02:23:00 Elian olivier [facility] POC GLUCOSE SCREEN 2023-01-30 Simbaradha Saurabh, Universit y of 22:38:00 Elian Blackburn MD Anderso [facility] POC GLUCOSE SCREEN 2023-01-30 Simbaqueba Saurabh, Universit y of 17:51:00 [facility] POC GLUCOSE SCREEN 2023-01-30 Simbaqueba Saurabh, Universit y of 14:45:00 [facility] BASIC METABOLIC PANEL, 2023-01-30 [facility] y of CALCIUM TOTAL 08:14:00 [place] Liane olivier [facility] MAGNESIUM LEVEL 2023-01-30 [facility] of 08:14:00 [place] [facility] PHOSPHORUS LEVEL 2023-01-30 NabeelFormerly [facility] of 08:14:00 [place] [facility] COMPLETE BLOOD COUNT W/ 2023-01-30 [facility] ty of DIFFERENTIAL 08:14:00 [place] [facility] GLUCOSE LEVEL 2023-01-30 [facility] of 08:14:00 [place] [facility] BLOOD UREA NITROGEN 2023-01-30 [facility] o f 08:14:00 [place] [facility] soy [facility] ELECTROLYTE PANEL 2023-01-30 [facility] of 08:14:00 [place] [facility] SERUM CREATININE 2023-01-30 [facility] of 08:14:00 [place] [facility] .GLOMERULAR FILTRATION RATE 2023-01-30 [facility] ersity of 08:14:00 [place] [facility] CALCIUM LEVEL TOTAL 2023-01-30 [facility] o f 08:14:00 [place] [facility] Results CBC 2023-01-30 [facility] of 08:14:00 [place] Liane olivier [facility] MANUAL DIFFERENTIAL 2023-01-30 [facility] o f 08:14:00 [place] Liane olivier [facility] POC GLUCOSE SCREEN 2023-01-30 Simbaqueba Saurabh, Universit y of 02:40:00 [facility] MD Liane olivier [facility] POC GLUCOSE SCREEN 2023-01-30 Simbaqueba Saurabh, Universit y of 00:24:00 Elian olivier [facility] POC GLUCOSE SCREEN 2023-01-29 Noel Onealit y of 22:51:00 Elian olivier [facility] VERIFY CATHETER TIP PLACEMENT 2023-01-29 Justo Banuelos [place] of 20:08:01 Bere olivier [facility] XR CHEST 1 VW POST IMPLANT 2023-01-29 Kt Deshpande U niversity of 19:59:15 Elian olivier [facility] INSERT VASCULAR ACCESS DEVICE 2023-01-29 Kt Deshpande University of 19:04:31 Elian olivier [facility] POC GLUCOSE SCREEN 2023-01-29 Kt Deshpande Universit y of 19:04:00 Elian olivier [facility] POC GLUCOSE SCREEN 2023-01-29 Kt Deshpande Univers y of 13:50:00 Elian olivier [facility] BASIC METABOLIC PANEL, 2023-01-29 Nabeel [place] [facility] y of CALCIUM TOTAL 08:33:00 [place] [facility] MAGNESIUM LEVEL 2023-01-29 [facility] of 08:33:00 [place] Rob [facility] PHOSPHORUS LEVEL 2023-01-29 [facility] of 08:33:00 [place] [facility] COMPLETE BLOOD COUNT W/ 2023-01-29 [facility] ty of DIFFERENTIAL 08:33:00 Bere olivier [facility] GLUCOSE LEVEL 2023-01-29 Nabeel [facility] of 08:33:00 [place] [facility] BLOOD UREA NITROGEN 2023-01-29 [facility] o f 08:33:00 [place] Rob [facility] ELECTROLYTE PANEL 2023-01-29 Nabeel [facility] of 08:33:00 [place] Rob [facility] SERUM CREATININE 2023-01-29 [facility] of 08:33:00 [place] [facility] .GLOMERULAR FILTRATION RATE 2023-01-29 Nabeel [facility] ersity of 08:33:00 [place] Rob [facility] CALCIUM LEVEL TOTAL 2023-01-29 [facility] o f 08:33:00 [place] MD Liane olivier [facility] Results CBC 2023-01-29 Nabeel [facility] of 08:33:00 [place] MD Liane olivier [facility] MANUAL DIFFERENTIAL 2023-01-29 [facility] o f 08:33:00 [place] MD Liane olivier [facility] POC GLUCOSE SCREEN 2023-01-29 Simbaqueba Saurabh, Universit y of 03:21:00 Eliansuzi [facility] POC GLUCOSE SCREEN 2023-01-28 Simbaqueba Saurabh, Universit y of 23:27:00 Elian [place] MD Liane [facility]ier [facility] POC GLUCOSE SCREEN 2023-01-28 Simbaqueba Saurabh, Universit y of 17:57:00 Elian [place] MD Liane olivier [facility] POC GLUCOSE SCREEN 2023-01-28 Simbaqueba Saurabh, Universit y of 15:38:00 [facility] MD Liane olivier [facility] HEMOGLOBIN 2023-01-28 GioMana cope [place] of 13:24:00 [place] Liane olivier [facility] HEMATOCRIT 2023-01-28 [facility] of 13:24:00 [place] Liane olivier [facility] POC GLUCOSE SCREEN 2023-01-28 Simbaqueba Saurabh, Universit y of 13:17:00 [facility] MD Liane olivier [facility] HEMOGLOBIN 2023-01-28 [facility] [place] of 08:00:00 [place] Liane olivier [facility] HEMATOCRIT 2023-01-28 Gio [facility] of 08:00:00 [place] Liane olivier [facility] BASIC METABOLIC PANEL, 2023-01-28 Nabeel Melody [facility] y of CALCIUM TOTAL 08:00:00 [place] Liane olivier [facility] MAGNESIUM LEVEL 2023-01-28 Nabeel [facility] of 08:00:00 [place] Liane olivier [facility] PHOSPHORUS LEVEL 2023-01-28 Nabeel, [facility] [place] of 08:00:00 [place] Liane olivier [facility] COMPLETE BLOOD COUNT W/ 2023-01-28 Nabeel Melody [facility] ty of DIFFERENTIAL 08:00:00 [place] Liane [facility]ier [facility] GLUCOSE LEVEL 2023-01-28 [facility] of 08:00:00 [place] Liane olivier [facility] BLOOD UREA NITROGEN 2023-01-28 [facility] o f 08:00:00 [place] Liane olivier [facility] ELECTROLYTE PANEL 2023-01-28 [facility] of 08:00:00 [place] Liane olivier [facility] SERUM CREATININE 2023-01-28 [facility] of 08:00:00 [place] Liane olivier [facility] .GLOMERULAR FILTRATION RATE 2023-01-28 [facility] ersity of 08:00:00 [place] Liane olivier [facility] CALCIUM LEVEL TOTAL 2023-01-28 [facility] o f 08:00:00 [place] MD Liane olivier [facility] Results CBC 2023-01-28 [facility] of 08:00:00 [place] MD Liane olivier [facility] MANUAL DIFFERENTIAL 2023-01-28 [facility] o f 08:00:00 [place] MD Liane olivier [facility] POC GLUCOSE SCREEN 2023-01-28 [facility] [address] 03:34:00 Jaycee [place] Carreon soy [facility] POC GLUCOSE SCREEN 2023-01-28 [facility] [address] 00:42:00 Jaycee [place] MD Liane olivier [facility] HEMOGLOBIN 2023-01-27 [facility] of 21:15:00 [place] Liane olivier [facility] HEMATOCRIT 2023-01-27 [facility] of 21:15:00 [place] MD Liane olivier [facility] Center POC GLUCOSE SCREEN 2023-01-27 [facility] of 19:38:00 Jaycee [place] Liane olivier [facility] POC GLUCOSE SCREEN 2023-01-27 [facility] of 16:11:00 [place] Liane olivier [facility] POC GLUCOSE SCREEN 2023-01-27 Stevo Amanda [place] of 13:43:00 [place] MD Liane olivier [facility] BASIC METABOLIC PANEL, 2023-01-27 [facility] of CALCIUM TOTAL 07:48:00 [place] MD Liane olivier [facility] MAGNESIUM LEVEL 2023-01-27 [facility] of 07:48:00 [place] Liane olivier [facility] PHOSPHORUS LEVEL 2023-01-27 [facility] of 07:48:00 [place] [facility] COMPLETE BLOOD COUNT W/ 2023-01-27 [facility] ty of DIFFERENTIAL 07:48:00 [place] MD Liane olivier [facility] GLUCOSE LEVEL 2023-01-27 [facility] of 07:48:00 [place] [facility] BLOOD UREA NITROGEN 2023-01-27 [facility] o f 07:48:00 [place] Liane olivier [facility] ELECTROLYTE PANEL 2023-01-27 [facility] of 07:48:00 [place] [facility] SERUM CREATININE 2023-01-27 [facility] of 07:48:00 [place] [facility] .GLOMERULAR FILTRATION RATE 2023-01-27 [facility] ersity of 07:48:00 [place] [facility] CALCIUM LEVEL TOTAL 2023-01-27 [facility] o f 07:48:00 [place] Liane olivier [facility] Results CBC 2023-01-27 [facility] of 07:48:00 [place] [facility] MANUAL DIFFERENTIAL 2023-01-27 [facility] o f 07:48:00 [place] Liane olivier [facility] POC GLUCOSE SCREEN 2023-01-27 [facility] of 04:16:00 [place] Carreon soy [facility] URINE CULTURE 2023-01-27 Amanda Proctor [place] of 03:45:00 [place] Liane olivier [facility] URINALYSIS WITH MICROSCOPIC 2023-01-27 Amanda Proctor [facility] ersity of IF INDICATED 03:45:00 [place] Liane olivier [facility] URINALYSIS MICROSCOPIC EXAM 2023-01-27 Amanda Proctor ersity of 03:45:00 [place] Liane olivier [facility] POC GLUCOSE SCREEN 2023-01-27 [facility] of 00:34:00 [place] [facility] GLUCOSE SCREEN 2023-01-26 [facility] of 22:30:00 [place] [facility] COVID-19 (SARS-COV-2) 2023-01-26 Amanda Proctor of ASYMPTOMATIC-LT 21:34:00 Bere olivier [facility] BLOODCULTURE 2023-01-26 Amanda Proctor of 19:44:00 Bere olivier [facility] COMPLETE BLOOD COUNT W/ 2023-01-26 Amanda Proctor ty of DIFFERENTIAL 19:44:00 Bere olivier [facility] MAGNESIUM LEVEL 2023-01-26 Amanda Proctor of 19:44:00 Bere olivier [facility] PHOSPHORUS LEVEL 2023-01-26 Amanda Proctor of 19:44:00 Bere olivier [facility] FRACTIONATED BILIRUBIN 2023-01-26 Amanda Proctorit y of 19:44:00 Bere olivier [facility] AMYLASE LEVEL 2023-01-26 Amanda Proctor of 19:44:00 Bere olivier [facility] LIPASE LEVEL 2023-01-26 Amanda Proctor of 19:44:00 Bere olivier [facility] LACTATE DEHYDROGENASE 2023-01-26 Amanda Proctor of 19:44:00 Bere olivier [facility] C REACTIVE PROTEIN 2023-01-26 Amanda Proctor of 19:44:00 [place] MD [facility] centers[facility]yl ol[facility]ier [facility] COMPREHENSIVE METABOLIC PANEL 2023-01-26 Amanda Proctor iversignacio of 19:44:00 Bere olivier [facility] PROCALCITONIN 2023-01-26 Amanda Proctor of 19:44:00 Bere olivier [facility] Results CBC 2023-01-26 Amanda Proctor of 19:44:00 Bere olivier [facility] MANUAL DIFFERENTIAL 2023-01-26 Amanda Proctor o f 19:44:00 Bere olivier [facility] GLUCOSE LEVEL 2023-01-26 Amanda Proctor of 19:44:00 Bere olivier [facility] BLOOD UREA NITROGEN 2023-01-26 Amanda Proctor o f 19:44:00 Bere olivier [facility] ELECTROLYTE PANEL 2023-01-26 Amanda Proctor of 19:44:00 Bere olivier [facility] SERUM CREATININE 2023-01-26 [facility] of 19:44:00 [place] [facility] .GLOMERULAR FILTRATION RATE 2023-01-26 [facility] ersity of 19:44:00 [place] MD Rob [facility] CALCIUM LEVEL TOTAL 2023-01-26 [facility] o f 19:44:00 [place] [facility] ALBUMIN LEVEL 2023-01-26 [facility] of 19:44:00 [place] [facility] ALKALINE PHOSPHATASE 2023-01-26 [facility] of 19:44:00 [place] [facility] ALANINE AMINOTRANSFERASE 2023-01-26 [facility] ity of 19:44:00 [place] [facility] ASPARTATE AMINOTRANSFERASE 2023-01-26 [facility] rsity of 19:44:00 [place] [facility] TOTAL PROTEIN 2023-01-26 [facility] of 19:44:00 [place] [facility] COMPREHENSIVE METABOLIC PANEL 2023-01-20 Lorena Hdez [facility] of 17:53:46 [place] [facility] COMPLETE BLOOD COUNT W/ 2023-01-20 Simona Hdezfer [facility]Con[facility] versity of DIFFERENTIAL 17:53:46 Bere GRIFFIN [facility] MAGNESIUM LEVEL 2023-01-20 [facility] of 17:53:46 [place] [facility] PHOSPHORUS LEVEL 2023-01-20 Simona Hdzefer KaylaMethodist [facility] Hospital of 17:53:46 Bere GRIFFIN [facility] GLUCOSE LEVEL 2023-01-20 Lorena Hdez [facility] of 17:53:46 [place] [facility] BLOOD UREA NITROGEN 2023-01-20 [facility] ity of 17:53:46 Bere GRIFFIN [facility] ELECTROLYTE PANEL 2023-01-20 Lore[facility] Hdez [facility] of 17:53:46 [place] [facility] SERUM CREATININE 2023-01-20 [facility] of 17:53:46 [place] [facility] .GLOMERULAR FILTRATION RATE 2023-01-20 [facility] of 17:53:46 [place] Liane olivier [facility] CALCIUM LEVEL TOTAL 2023-01-20 [facility] ity of 17:53:46 Bere olivier [facility] ALBUMIN LEVEL 2023-01-20 [facility] HospitalSimonaLorenaAshe[facility] of 17:53:46 [place] MD Liane olivier [facility] ALKALINE PHOSPHATASE 2023-01-20 [facility] sity of 17:53:46 Bere olivier [facility] ALANINE AMINOTRANSFERASE 2023-01-20 [facility] iversity of 17:53:46 [place] Liane olivier [facility] ASPARTATE AMINOTRANSFERASE 2023-01-20 [facility] of 17:53:46 [place] Liane olivier [facility] TOTAL PROTEIN 2023-01-20 [facility] of 17:53:46 [place] MD Liane olivier [facility] FRACTIONATED BILIRUBIN 2023-01-20 [facility] ersity of 17:53:46 Bere olivier [facility] Results CBC 2023-01-20 [facility] of 17:53:46 [place] MD Liane olivier [facility] MANUAL DIFFERENTIAL 2023-01-20 [facility] HospitalL[facility]na[facility] ity of 17:53:46 Bere olivier [facility] CONTROLLED SUBSTANCE 2023-01-20 [facility] PANEL, URINE 17:37:00 Rogerio Blackburn MD [facility] TETRAHYDROCANNABINOL 2023-01-20 [place], [place] of [facility], UR 17:37:00 Rogerio Carreon [facility] POC URINE DRUG SCREEN PANEL, 2023-01-20 Williams, [facility] versity of QUALITATIVE 17:37:00 Rogerio Rob [facility] Center POC GLUCOSE SCREEN 2023-01-18 [facility] of 18:10:00 Bere olivier [facility] POC GLUCOSE SCREEN 2023-01-18 [facility] of 12:46:00 [place] Rob [facility] BASIC METABOLIC PANEL, 2023-01-18 Ankit Locke rsity of CALCIUM TOTAL 09:03:00 [facility] MAGNESIUM LEVEL 2023-01-18 Ankit Locke o f 09:03:00 [place] [facility] PHOSPHORUS LEVEL 2023-01-18 Ankit Locke [place] of 09:03:00 [place] [facility] COMPLETE BLOOD COUNT W/ 2023-01-18 Ankit Locke [facility] ersity of DIFFERENTIAL 09:03:00 [place] [facility] GLUCOSE LEVEL 2023-01-18 Ankit Locke o f 09:03:00 [place] [facility] BLOOD UREA NITROGEN 2023-01-18 Ankit Locke [facility] ty of 09:03:00 [place] [facility] ELECTROLYTE PANEL 2023-01-18 Ankit Locke of 09:03:00 [place] [facility] SERUM CREATININE 2023-01-18 Ankit Locke [place] of 09:03:00 [place] [facility] .GLOMERULAR FILTRATION RATE 2023-01-18 Ankit Locke [place] of 09:03:00 [place] [facility] CALCIUM LEVEL TOTAL 2023-01-18 Ankit Locke [facility] ty of 09:03:00 [place] [facility] Results CBC 2023-01-18 Ankit Locke o f 09:03:00 [place] [facility] MANUAL DIFFERENTIAL 2023-01-18 Ankit Locke [facility] ty of 09:03:00 [place] [facility] POC GLUCOSE SCREEN 2023-01-18 [facility] of 02:33:00 [place] [facility] POC GLUCOSE SCREEN 2023-01-17 [facility] of 23:22:00 [place] [facility] POC GLUCOSE SCREEN 2023-01-17 [facility] of 17:43:00 [place] [facility] POC GLUCOSE SCREEN 2023-01-17 [facility] of 13:58:00 [place] [facility] BASIC METABOLIC PANEL, 2023-01-17 Ankit Locke rsity of CALCIUM TOTAL 09:31:00 [place] MD Liane olivier [facility] MAGNESIUM LEVEL 2023-01-17 Ankit Locke [place] f 09:31:00 [place] Liane olivier [facility] PHOSPHORUS LEVEL 2023-01-17 Ankit Locke [place] of 09:31:00 [facility] COMPLETE BLOOD COUNT W/ 2023-01-17 Ankit Locke ersity of DIFFERENTIAL 09:31:00 [place] [facility] GLUCOSE LEVEL 2023-01-17 Ankit Locke [place] o f 09:31:00 [place] [facility] BLOOD UREA NITROGEN 2023-01-17 Ankit Locke [facility] ty of 09:31:00 [place] [facility] ELECTROLYTE PANEL 2023-01-17 Ankit Locke [place] of 09:31:00 [facility] SERUM CREATININE 2023-01-17 Ankit Locke [place] of 09:31:00 [place] [facility] .GLOMERULAR FILTRATION RATE 2023-01-17 Ankit Locke [place] of 09:31:00 [place] [facility] CALCIUM LEVEL TOTAL 2023-01-17 Ankit Locke [facility] ty of 09:31:00 [place] [facility] Results CBC 2023-01-17 Ankit Locke [place] f 09:31:00 [place] Liane olivier [facility] MANUAL DIFFERENTIAL 2023-01-17 Ankit Locke [facility] ty of 09:31:00 [place] MD Rob [facility] POC GLUCOSE SCREEN 2023-01-17 [facility] of 01:43:00 [place] Liane olivier [facility] Center POC GLUCOSE SCREEN 2023-01-16 [facility] of 22:16:00 [place] MD Rob [facility] Center POC GLUCOSE SCREEN 2023-01-16 [facility] of 17:25:00 [place] MD Rob [facility] Center POC GLUCOSE SCREEN 2023-01-16 [facility] of 14:01:00 [place] [facility] BASIC METABOLIC PANEL, 2023-01-16 Ankit Locke [facility] rsity of CALCIUM TOTAL 11:22:00 [place] [facility] MAGNESIUM LEVEL 2023-01-16 Ankit Locke o f 11:22:00 [place] [facility] PHOSPHORUS LEVEL 2023-01-16 Ankit Locke [place] of 11:22:00 [place] [facility] COMPLETE BLOOD COUNT W/ 2023-01-16 Ankit Locke [facility] ersity of DIFFERENTIAL 11:22:00 [place] [facility] GLUCOSE LEVEL 2023-01-16 Ankit Locke o f 11:22:00 [place] [facility] BLOOD UREA NITROGEN 2023-01-16 [facility] 11:22:00 [place] [facility] ELECTROLYTE PANEL 2023-01-16 Ankit Locke [place] of 11:22:00 [place] [facility] SERUM CREATININE 2023-01-16 Ankit Locke [place] of 11:22:00 [place] [facility] .GLOMERULAR FILTRATION RATE 2023-01-16 Ankit Locke [place] of 11:22:00 [place] [facility] CALCIUM LEVEL TOTAL 2023-01-16 Ankit Locke [facility] 11:22:00 [place] [facility] Results CBC 2023-01-16 Ankit Locke [place] f 11:22:00 [place] [facility] MANUAL DIFFERENTIAL 2023-01-16 Ankit Locke [facility] 11:22:00 [place] [facility] POC GLUCOSE SCREEN 2023-01-16 [facility] of 01:34:00 [place] [facility] POC GLUCOSE SCREEN 2023-01-15 [facility] of 23:29:00 [place] [facility] POC GLUCOSE SCREEN 2023-01-15 [facility] of 18:11:00 [place] [facility] POC GLUCOSE SCREEN 2023-01-15 [facility] of 13:12:00 [place] [facility] BASIC METABOLIC PANEL, 2023-01-15 Ankit Locke rsity of CALCIUM TOTAL 07:23:00 [place] Carreon soy [facility] MAGNESIUM LEVEL 2023-01-15 Ankit Locke [place] f 07:23:00 [place] Liane olivier [facility] PHOSPHORUS LEVEL 2023-01-15 Ankit Locke [place] of 07:23:00 [place] [facility] COMPLETE BLOOD COUNT W/ 2023-01-15 Ankit Locke [facility] ersity of DIFFERENTIAL 07:23:00 [place] [facility] GLUCOSE LEVEL 2023-01-15 Ankit Locke [place] o f 07:23:00 [place] [facility] BLOOD UREA NITROGEN 2023-01-15 Ankit Locke [facility] ty of 07:23:00 [place] [facility] ELECTROLYTE PANEL 2023-01-15 Ankit Locke [place] of 07:23:00 [place] [facility] SERUM CREATININE 2023-01-15 Ankit Locke [place] of 07:23:00 [place] [facility] .GLOMERULAR FILTRATION RATE 2023-01-15 Ankit Locke [place] of 07:23:00 [place] Carreon soy [facility] CALCIUM LEVEL TOTAL 2023-01-15 Ankit Locke [facility] ty of 07:23:00 [place] Liane olivier [facility] Results CBC 2023-01-15 Ankit Locke [place] f 07:23:00 [place] [facility] soy [facility] MANUAL DIFFERENTIAL 2023-01-15 Ankit Locke [facility] ty of 07:23:00 [place] [facility] POC GLUCOSE SCREEN 2023-01-15 [facility] of 03:18:00 [place] [facility] POC GLUCOSE SCREEN 2023-01-15 [facility] of 00:17:00 [place] Carreon soy [facility] POC GLUCOSE SCREEN 2023-01-14 [facility] of 19:43:00 [place] [facility] POC GLUCOSE SCREEN 2023-01-14 [facility] of 14:54:00 [place] [facility] POC GLUCOSE SCREEN 2023-01-14 [facility] of 12:55:00 [place] [facility] BASIC METABOLIC PANEL, 2023-01-[address] [facility] rsity of CALCIUM TOTAL 08:31:00 [place] [facility] MAGNESIUM LEVEL 2023-01-14 Ankit Locke [place] f 08:31:00 [place] [facility] PHOSPHORUS LEVEL 2023-01-14 Ankit Locke [place] of 08:31:00 [place] [facility] COMPLETE BLOOD COUNT W/ 2023-01-14 Ankit Locke ersity of DIFFERENTIAL 08:31:00 [place] [facility] GLUCOSE LEVEL 2023-01-14 Ankit Locke [place] o f 08:31:00 [place] [facility] BLOOD UREA NITROGEN 2023-01-14 Ankit Locke [facility] ty of 08:31:00 [place] [facility] ELECTROLYTE PANEL 2023-01-14 Ankit Locke [place] of 08:31:00 [place] [facility] SERUM CREATININE 2023-01-14 Ankit Locke [place] of 08:31:00 [place] [facility] .GLOMERULAR FILTRATION RATE 2023-01-14 Ankit Locke [place] of 08:31:00 [place] [facility] CALCIUM LEVEL TOTAL 2023-01-14 Ankit Locke [facility] ty of 08:31:00 [place] [facility] Results CBC 2023-01-14 Ankit Locke [place] f 08:31:00 [place] [facility] MANUAL DIFFERENTIAL 2023-01-14 Ankit Locke [facility] ty of 08:31:00 [place] [facility] POC GLUCOSE SCREEN 2023-01-14 [facility] of 03:05:00 [place] [facility] POC GLUCOSE SCREEN 2023-01-13 [facility] of 23:08:00 [place] [facility] POC GLUCOSE SCREEN 2023-01-13 [facility] of 18:04:00 [place] [facility] soy [facility] POC GLUCOSE SCREEN 2023-01-13 [facility] of 16:39:00 [place] [facility] soy [facility] POC GLUCOSE SCREEN 2023-01-13 [facility] of 14:36:00 [place] [facility] POC GLUCOSE SCREEN 2023-01-13 [facility] of 12:31:00 [place] [facility] BASIC METABOLIC PANEL, 2023-01-13 Ankit Locke rsity of CALCIUM TOTAL 07:55:00 [place] [facility] MAGNESIUM LEVEL 2023-01-13 Ankit Locke [place] f 07:55:00 [place] [facility] PHOSPHORUS LEVEL 2023-01-13 Ankit Locke [place] of 07:55:00 [place] [facility] COMPLETE BLOOD COUNT W/ 2023-01-13 Ankit Locke [facility] ersity of DIFFERENTIAL 07:55:00 [place] [facility] GLUCOSE LEVEL 2023-01-13 Irina Houston [place] of 07:55:00 [place] [facility] BLOOD UREA NITROGEN 2023-01-13 Irina Houston [place] of 07:55:00 [place] [facility] ELECTROLYTE PANEL 2023-01-13 Irina Houston [place] of 07:55:00 [place] [facility] SERUM CREATININE 2023-01-13 Irina Houston [place] of 07:55:00 [place] [facility] .GLOMERULAR FILTRATION RATE 2023-01-13 Irina Houston Uni versity of 07:55:00 [place] [facility] CALCIUM LEVEL TOTAL 2023-01-13 Irina Houston [facility] 07:55:00 [place] [facility] Results CBC 2023-01-13 Irina Houston [place] of 07:55:00 [place] [facility] MANUAL DIFFERENTIAL 2023-01-13 Irina Houston [place] of 07:55:00 [place] [facility] POC GLUCOSE SCREEN 2023-01-13 [facility] of 03:31:00 [place] [facility] POC GLUCOSE SCREEN 2023-01-13 [facility] of 00:05:00 [place] [facility] POC GLUCOSE SCREEN 2023-01-12 [facility] of 18:51:00 [place] [facility] POC GLUCOSE SCREEN 2023-01-12 [facility] of 18:00:00 [place] [facility] POC GLUCOSE SCREEN 2023-01-12 [facility] 14:16[facility]00 [place] [facility] POC GLUCOSE SCREEN 2023-01-12 [facility] 12:55:00 [place] [facility] POC GLUCOSE SCREEN 2023-01-12 [facility] 10:59:00 [place] [facility] BASIC METABOLIC PANEL, 2023-01-[address] [facility] rsity of CALCIUM TOTAL 08:03:00 [place] [facility] MAGNESIUM LEVEL 2023-01-12 Ankit Locke [place] o f 08:03:00 [place] [facility] PHOSPHORUS LEVEL 2023-01-12 Ankit Locke [place] of 08:03:00 [facility] COMPLETE BLOOD COUNT W/ 2023-01-12 Ankit Locke [facility] ersity of DIFFERENTIAL 08:03:00 [place] [facility] GLUCOSE LEVEL 2023-01-12 Irina Houston [place] of 08:03:00 [place] [facility] BLOOD UREA NITROGEN 2023-01-12 Irina Houston [place] of 08:03:00 [place] [facility] ELECTROLYTE PANEL 2023-01-12 Irina Houston [place] of 08:03:00 [place] [facility] SERUM CREATININE 2023-01-12 Irina Houston [place] of 08:03:00 [place] [facility] .GLOMERULAR FILTRATION RATE 2023-01-12 Irina Houston Uni versity of 08:03:00 [place] [facility] CALCIUM LEVEL TOTAL 2023-01-12 Irina Houston [place] of 08:03:00 [place] [facility] Results CBC 2023-01-12 Irina Houston [place] of 08:03:00 [place] [facility] MANUAL DIFFERENTIAL 2023-01-12 Irina Houston [place] of 08:03:00 [place] [facility] POC GLUCOSE SCREEN 2023-01-12 Roberto Carlos Walsh [place] of 06:58:00 [place] [facility] COVID-19 (SARS-COV-2) 2023-01-12 Nguyen Barcenas [facility] ity of ASYMPTOMATIC-LT 03:25:00 [place] [facility] XR KNEE 1 OR 2 VW RIGHT 2023-01-12 Nguyen Barcenas Unive rsity of 03:22:08 [place] [facility] POC GLUCOSE SCREEN 2023-01-12 Roberto Carlos Walsh [place] of 01:37:00 [facility] CT HEAD WO CONTRAST 2023-01-11 Nguyen Barcenas [facility] of 23:29:12 [place] [facility] COMPLETE BLOOD COUNT W/ 2023-01-11 Nguyen Bracenas Unive rsity of DIFFERENTIAL 21:11:00 [place] [facility] COMPREHENSIVE METABOLIC PANEL 2023-01-11 Nguyen Barcenas [facility] 21:11:00 [place] [facility] MAGNESIUM LEVEL 2023-01-11 Nguyen Barcenas [facility] 21:11:00 [place] [facility] PHOSPHORUS LEVEL 2023-01-11 Nguyen Barcenas [place] o f 21:11:00 [place] [facility] PROTHROMBIN TIME 2023-01-11 Nguyen Barcenas [place] o f 21:11:00 [place] [facility] APTT 2023-01-11 Nguyen Barcenas [facility] 21:11:00 [place] [facility] Results CBC 2023-01-11 Narinder, Nguyen A. University of 21:11:00 [facility] MANUAL DIFFERENTIAL 2023-01-11 Nguyen Barcenas [facility] of 21:11:00 [facility] GLUCOSE LEVEL 2023-01-11 Nguyen Barcenas [facility] of 21:11:00 [facility] BLOOD UREA NITROGEN 2023-01-11 Nguyen Barcenas [facility] of 21:11:00 [facility] ELECTROLYTE PANEL 2023-01-11 Nguyen Barcenas [facility] of 21:11:00 [facility] SERUM CREATININE 2023-01-11 Nguyen Barcenas [facility] o f 21:11:00 [facility] .GLOMERULAR FILTRATION RATE 2023-01-11 Nguyen Barcenas U niversity of 21:11:00 [facility] CALCIUM LEVEL TOTAL 2023-01-11 Nguyen Barcenas [facility] of 21:11:00 [facility] ALBUMIN LEVEL 2023-01-11 Nguyen Barcenas [facility] of 21:11:00 [facility] ALKALINE PHOSPHATASE 2023-01-11 Nguyen Barcenas Universi ty of 21:11:00 [facility] ALANINE AMINOTRANSFERASE 2023-01-11 Nguyen Barcenas Univ ersity of 21:11:00 [facility] ASPARTATE AMINOTRANSFERASE 2023-01-11 Nguyen Barcenas Un iversity of 21:11:00 [facility] TOTAL PROTEIN 2023-01-11 Nguyen Barcenas [facility] of 21:11:00 [facility] FRACTIONATED BILIRUBIN 2023-01-11 Nguyen Barcenas Univer sity of 21:11:00 [facility] COMPREHENSIVE METABOLIC PANEL 2023-01-07 Lorena Hdez University of 14:28:23 [facility] COMPLETE BLOOD COUNT W/ 2023-01-07 Lorena Hdez Uni versity of DIFFERENTIAL 14:28:23 [facility] MAGNESIUM LEVEL 2023-01-07 Lorena Hdez [place] of 14:28:23 [place] [facility] PHOSPHORUS LEVEL 2023-01-07 Lorena Hdez [place] of 14:28:23 [place] [facility] GLUCOSE LEVEL 2023-01-07 Lorena Hdez [place] of 14:28:23 Bere GRIFFIN [facility] BLOOD UREA NITROGEN 2023-01-07 Lorena Hdez [facility] ity of 14:28:23 [place] [facility] ELECTROLYTE PANEL 2023-01-07 [facility]dez [facility] 14:28:23 [place] [facility] SERUM CREATININE 2023-01-07 Lorena Hdez [place] of 14:28:23 [place] [facility] .GLOMERULAR FILTRATION RATE 2023-01-07 Lorena Hdez [place] of 14:28:23 Bere Rob [facility] CALCIUM LEVEL TOTAL 2023-01-07 Lorena Hdez [facility] ity of 14:28:23 [place] [facility] ALBUMIN LEVEL 2023-01-07 [facility]ona [facility] of 14:28:23 [place] Rob [facility] ALKALINE PHOSPHATASE 2023-01-07 Lorena Hdez [facility] sity of 14:28:23 Bere GRIFFIN [facility] ALANINE AMINOTRANSFERASE 2023-01-07 Lorena Hdez iversity of 14:28:23 [facility] ASPARTATE AMINOTRANSFERASE 2023-01-07 [facility] 14:28:23 [place] [facility] TOTAL PROTEIN 2023-01-07 [facility] 14:28:23 [place] [facility] FRACTIONATED BILIRUBIN 2023-01-07 Lorena Hdez [facility] ersity of 14:28:23 Bere Rob [facility] Results CBC 2023-01-07 Lorena Hdez [place] of 14:28:23 [place] [facility] MANUAL DIFFERENTIAL 2023-01-07 Lorena Hdez [facility] ity of 14:28:23 Bere Rob [facility] COMPREHENSIVE METABOLIC PANEL 2023-01-01 Lorena Hdez [facility] of 14:26:43 Bere Millergerald [facility] centers[facility] COMPLETE BLOOD COUNT W/ 2023-01-01 Lorena Hdez [facility] versity of DIFFERENTIAL 14:26:43 Bere GRIFFIN [facility] MAGNESIUM LEVEL 2023-01-01 Lorena Hdez [place] of 14:26:43 Bere GRIFFIN [facility] PHOSPHORUS LEVEL 2023-01-01 [facility] 14:26:43 [place] [facility] GLUCOSE LEVEL 2023-01-01 [facility] 14:26:43 Bere GRIFFIN [facility] BLOOD UREA NITROGEN 2023-01-01 Lorena Hdez [facility] ity of 14:26:43 [place] [facility] ELECTROLYTE PANEL 2023-01-01 [facility]dez [facility] 14:26:43 Bere GRIFFIN [facility] SERUM CREATININE 2023-01-01 [facility] 14:26:43 [place] [facility] .GLOMERULAR FILTRATION RATE 2023-01-01 Simona H[facility]fer [facility] of 14:26:43 Bere olivier [facility] CALCIUM LEVEL TOTAL 2023-01-01 Lorena Hdez [facility] ity of 14:26:43 Bere GRIFFIN [facility] ALBUMIN LEVEL 2023-01-01 Lorena Hdez [place] of 14:26:43 Bere Rob [facility] ALKALINE PHOSPHATASE 2023-01-01 [facility] 14:26:43 Bere GRIFFIN [facility] ALANINE AMINOTRANSFERASE 2023-01-01 Lorena Hdez iversity of 14:26:43 Bere GRIFFIN [facility] ASPARTATE AMINOTRANSFERASE 2023-01-01 Lorena Hdez [place] of 14:26:43 Bere GRIFFIN [facility] TOTAL PROTEIN 2023-01-01 Lorena Hdez [place] of 14:26:43 Bere GRIFFIN [facility] FRACTIONATED BILIRUBIN 2023-01-01 Lorena Hdez [facility] ersity of 14:26:43 Bere Millererso n [facility] Results CBC 2023-01-01 Lorena Hdez [place] of 14:26:43 [place] [facility] MANUAL DIFFERENTIAL 2023-01-01 Lorena Hdez [facility] ity of 14:26:43 [place] Rob [facility] [place] VISUAL FIELD, 2022-12-29 Suzanne Mcgrath ity of INTERMEDIATE - OU - BOTH EYES 16:51:16 Dereck astudillo MD [facility] OCT, OPTIC NERVE - OU - BOTH 2022-12-29 Suzanne Mcgrath niversity of EYES 16:43:49 [place] [facility] OCT, RETINA - OU - BOTH EYES 2022-12-29 Suzanne Mcgrath niversity of 16:43:47 [place] [facility] COMPREHENSIVE METABOLIC PANEL 2022-12-24 Lorena Hdez [facility] of 15:16:00 [place] [facility] COMPLETE BLOOD COUNT W/ 2022-12-24 Lorena Hdez [facility] versity of DIFFERENTIAL 15:16:00 [place] [facility] MAGNESIUM LEVEL 2022-12-24 Lorena Hdez [place] of 15:16:00 [place] [facility] PHOSPHORUS LEVEL 2022-12-24 [facility] 15:16:00 [place] [facility] GLUCOSE LEVEL 2022-12-24 Lorena Hdez [place] of 15:16:00 [place] [facility] BLOOD UREA NITROGEN 2022-12-24 Lorena Hdez [facility] ity of 15:16:00 [place] [facility] ELECTROLYTE PANEL 2022-12-24 [facility] Hdez [facility] 15:16:00 [place] [facility] SERUM CREATININE 2022-12-24 Lorena Hdez [place] of 15:16:00 [place] [facility] .GLOMERULAR FILTRATION RATE 2022-12-24 Lorena Hdez [place] of 15:16:00 [place] [facility] CALCIUM LEVEL TOTAL 2022-12-24 Lorena Hdez [facility] ity of 15:16:00 [place] [facility] ALBUMIN LEVEL 2022-12-24 [facility] 15:16:00 [place] [facility] ALKALINE PHOSPHATASE 2022-12-24 [facility] 15:16:00 [place] [facility] ALANINE AMINOTRANSFERASE 2022-12-24 Lorena Hdez iversity of 15:16:00 [place] [facility] ASPARTATE AMINOTRANSFERASE 2022-12-24 Lorena Hdez [facility] of 15:16:00 [place] [facility] TOTAL PROTEIN 2022-12-24 [facility] of 15:16:00 [place] [facility] FRACTIONATED BILIRUBIN 2022-12-24 Lorena Hdez [facility] ersity of 15:16:00 [place] [facility] Results CBC 2022-12-24 [facility] 15:16:00 [place] [facility] MANUAL DIFFERENTIAL 2022-12-24 [facility] 15:16:00 [facility] COVID-19 (SARS-COV-2) 2022-12-23 Winter Luu [facility] sity of PCR-ASYMPTOMATIC MC 18:01:00 [place] [facility] POC GLUCOSE SCREEN 2022-12-16 [facility] of 00:07:00 [facility] POC GLUCOSE SCREEN 2022-12-15 [facility] of 18:52:00 [facility] OCT, OPTIC NERVE - OU - BOTH 2022-12-15 [facility] vers[facility] of EYES 16:37:29 [facility] OCT, RETINA - OU - BOTH EYES 2022-12-15 [facility] of 16:37:23 [facility] FUNDUS PHOTOS - OU - BOTH 2022-12-15 [facility] sity of EYES 16:37:12 [facility] 3D DENTAL IMAGING (ICAT) 2022-12-15 Wilder Soliz [facility] ity of 14:42:55 [place] [facility] POC GLUCOSE SCREEN 2022-12-15 Ordaz, [facility] of 13:19:00 [place] [facility] POC GLUCOSE SCREEN 2022-12-15 Ordaz, [facility] of 12:12:00 [facility] BASIC METABOLIC PANEL, 2022-12-15 Mana Powers [facility] of CALCIUM TOTAL 09:44:00 [place] [facility] MAGNESIUM LEVEL 2022-12-15 Mana Powers [place] of 09:44:00 [facility] PHOSPHORUS LEVEL 2022-12-15 [facility] of 09:44:00 [facility] COMPLETE BLOOD COUNT W/ 2022-12-15 Mana Powers [facility] ty of DIFFERENTIAL 09:44:00 [facility] GLUCOSE LEVEL 2022-12-15 Mana Powers [place] of 09:44:00 [facility] BLOOD UREA NITROGEN 2022-12-15 Mana Powers [place] o f 09:44:00 [facility] ELECTROLYTE PANEL 2022-12-15 Mana Powers [place] of 09:44:00 [facility] SERUM CREATININE 2022-12-15 Mana Powers [place] of 09:44:00 [facility] .GLOMERULAR FILTRATION RATE 2022-12-15 Mana Powers [facility] ersity of 09:44:00 [facility] CALCIUM LEVEL TOTAL 2022-12-15 Mana Powers [place] o f 09:44:00 [place] MD Rob [facility] Results CBC 2022-12-15 Mana Powers [place] of 09:44:00 [facility] MANUAL DIFFERENTIAL 2022-12-15 Mana Powers [place] o f 09:44:00 [facility] POC GLUCOSE SCREEN 2022-12-15 Trista Lopez[facility] of 08:28:00 [place] [facility] POC GLUCOSE SCREEN 2022-12-15 Travis Lopez [place] of 04:04:00 [place] [facility] POC GLUCOSE SCREEN 2022-12-14 Trista LopezMaria [facility] of 23:26:00 [place] [facility] POC GLUCOSE SCREEN 2022-12-14 Trista LopezMaria [facility] of 22:14:00 [place] [facility] [place] MODIFIED BARIUM SWALLOW W 2022-12-14 ChristinaTrista BoyleMaria [facility] of SPEECH 20:37:56 [place] [facility] POC GLUCOSE SCREEN 2022-12-14 ChristinaTrista BoyleMaria [facility] of 18:08:00 [facility] GENERAL LABORATORY ADD ON 2022-12-14 ChristinaTravis Boyle [facility] versity of TEST 14:03:00 [place] Liane olivier [facility] POC GLUCOSE SCREEN 2022-12-14 ChristinaTrista BoyleMaria [facility] of 13:25:00 [facility] POC GLUCOSE SCREEN 2022-12-14 Derrick Gill [facility] ty of 11:55:00 [facility] BASIC METABOLIC PANEL, 2022-12-14 Mana Powers [facility] of CALCIUM TOTAL 10:46:00 [facility] MAGNESIUM LEVEL 2022-12-14 Mana Powers [place] of 10:46:00 [facility] PHOSPHORUS LEVEL 2022-12-14 Mana Powers [place] of 10:46:00 [facility] COMPLETE BLOOD COUNT W/ 2022-12-14 Mana Powers ty of DIFFERENTIAL 10:46:00 [facility] GLUCOSE LEVEL 2022-12-14 Mana Powers [facility] of 10:46:00 [facility] BLOOD UREA NITROGEN 2022-12-14 Mana Powers [place] o f 10:46:00 [facility] ELECTROLYTE PANEL 2022-12-14 Mana Powers [place] of 10:46:00 [facility] SERUM CREATININE 2022-12-14 Mana Powers [place] of 10:46:00 [facility] .GLOMERULAR FILTRATION RATE 2022-12-14 Mana Powers [facility] ersity of 10:46:00 [place] [facility] CALCIUM LEVEL TOTAL 2022-12-14 [facility] o f 10:46:00 [place] [facility] Results CBC 2022-12-14 [facility] of 10:46:00 [place] [facility] MANUAL DIFFERENTIAL 2022-12-14 [facility] o f 10:46:00 [place] Liane olivier [facility] ALBUMIN LEVEL 2022-12-14 Trista LopezMaria [facility] of 10:46:00 [place] Liane olivier [facility] ALKALINE PHOSPHATASE 2022-12-14 [facility] of 10:46:00 [place] Liane olivier [facility] ALANINE AMINOTRANSFERASE 2022-12-14 [facility] ersity of 10:46:00 [place] Liane olivier [facility] ASPARTATE AMINOTRANSFERASE 2022-12-14 [facility] iversity of 10:46:00 [place] Liane olivier [facility] TOTAL PROTEIN 2022-12-14 Trista LopezMaria [facility] of 10:46:00 [place] Liane olivier [facility] FRACTIONATED BILIRUBIN 2022-12-14 [facility] sity of 10:46:00 [place] [facility] POC GLUCOSE SCREEN 2022-12-14 Trista LopezMaria [facility] of 07:36:00 [place] [facility] POC GLUCOSE SCREEN 2022-12-14 Trista LopezMaria [facility] of 03:56:00 [place] [facility] POC GLUCOSE SCREEN 2022-12-14 Trista LopezMaria [facility] of 00:31:00 [place] [facility] POC GLUCOSE SCREEN 2022-12-13 Trista LopezMaria [facility] of 19:24:00 [place] [facility] POC GLUCOSE SCREEN 2022-12-13 Trista LopezMaria [facility] of 14:02:00 [place] [facility] POC GLUCOSE SCREEN 2022-12-13 Trista LopezMaria [facility] of 11:58:00 [place] [facility] POC GLUCOSE SCREEN 2022-12-13 Trista LopezMaria [facility] of 09:24:00 [place] Liane olivier [facility] BASIC METABOLIC PANEL, 2022-12-13 Mana Powers [facility] of CALCIUM TOTAL 09:12:00 [place] Liane olivier [facility] MAGNESIUM LEVEL 2022-12-13 Mana Powers [place] of 09:12:00 [place] [facility] PHOSPHORUS LEVEL 2022-12-13 Mana Powers [place] of 09:12:00 [facility] COMPLETE BLOOD COUNT W/ 2022-12-13 Mana Powers [facility] ty of DIFFERENTIAL 09:12:00 [place] [facility] GLUCOSE LEVEL 2022-12-13 [facility]Wil[facility] of 09:12:00 [facility] BLOOD UREA NITROGEN 2022-12-13 [facility] o f 09:12:00 [place] Carreon soy [facility] ELECTROLYTE PANEL 2022-12-13 [facility]Wil[facility] of 09:12:00 [place] [facility] SERUM CREATININE 2022-12-13 [facility]Wil[facility] of 09:12:00 [facility] .GLOMERULAR FILTRATION RATE 2022-12-13 [facility] ers[facility] of 09:12:00 [place] [facility] CALCIUM LEVEL TOTAL 2022-12-13 [facility] o f 09:12:00 [place] Liane olivier [facility] Results CBC 2022-12-13 Mana Powers [place] of 09:12:00 [place] Liane olivier [facility] MANUAL DIFFERENTIAL 2022-12-13 GioMana [place] o f 09:12:00 [place] Liane olivier [facility] POC GLUCOSE SCREEN 2022-12-13 Trista LopezMaria [facility] of 03:43:00 [place] Liane olivier [facility] POC GLUCOSE SCREEN 2022-12-13 Trista LopezMaria [facility] of 00:16:00 [place] Liane olivier [facility] POC GLUCOSE SCREEN 2022-12-12 Trista LopezMaria [facility] of 18:52:00 [place] Liane olivier [facility] POC GLUCOSE SCREEN 2022-12-12 Jessica [facility] of 13:47:00 [facility] POC GLUCOSE SCREEN 2022-12-12 ChristinaTrista BoyleMaria [facility] of 11:52:00 [facility] BASIC METABOLIC PANEL, 2022-12-12 Mana Powers [facility] y of CALCIUM TOTAL 10:30:00 [facility] MAGNESIUM LEVEL 2022-12-12 Mana Powers [place] of 10:30:00 [facility] PHOSPHORUS LEVEL 2022-12-12 Mana Powers [place] of 10:30:00 [facility] COMPLETE BLOOD COUNT W/ 2022-12-12 Mana oPwers [facility] ty of DIFFERENTIAL 10:30:00 [facility] GLUCOSE LEVEL 2022-12-12 Mana Powers [place] of 10:30:00 [facility] BLOOD UREA NITROGEN 2022-12-12 Mana Powers [place] o f 10:30:00 [facility] ELECTROLYTE PANEL 2022-12-12 Mana Powers [place] of 10:30:00 [facility] SERUM CREATININE 2022-12-12 [facility]Wil[facility] of 10:30:00 [facility] .GLOMERULAR FILTRATION RATE 2022-12-12 Mana Powers [facility] ersity of 10:30:00 [facility] CALCIUM LEVEL TOTAL 2022-12-12 GioMana [place] o f 10:30:00 [facility] Results CBC 2022-12-12 Mana Powers [place] of 10:30:00 [facility] MANUAL DIFFERENTIAL 2022-12-12 Mana Powers [place] o f 10:30:00 [facility] POC GLUCOSE SCREEN 2022-12-12 Trista LopezMaria [facility] of 08:06:00 [facility] POC GLUCOSE SCREEN 2022-12-12 Trista LopezMaria [facility] of 04:01:00 [facility] LACTIC ACID, VENOUS 2022-12-12 [facility] y of 03:50:00 [place] [facility] VENOUS BLOOD GAS 2022-12-12 [facility] o f 00:21:00 [place] Liane olivier [facility] LIPASE LEVEL 2022-12-12 [facility] of 00:21:00 [place] Liane olivier [facility] POC GLUCOSE SCREEN 2022-12-12 [facility] Center[facility] of 00:10:00 [place] Liane olivier [facility] GENERAL LABORATORY ADD ON 2022-12-11 [facility]yliberty hospitalTrista BoyleUNC Health versity of TEST 23:39:00 [place] Liane olivier [facility] KETONE BODIES QUALITATIVE 2022-12-[address] [facility] rsity of 23:19:00 [place] Liane olivier [facility] POC GLUCOSE SCREEN 2022-12-11 [facility]Prov[facility] Centerjules [facility] of 22:51:00 [place] Liane olivier [facility] LACTIC ACID, VENOUS 2022-12-11 [facility] y of 22:33:00 [place] Liane olivier [facility] ELECTROLYTE PANEL 2022-12-11 Waleska Salinas [place] of 22:33:00 [place] Liane olivier [facility] LIPASE LEVEL 2022-12-11 Waleska Salinas [place] of 22:33:00 [place] Liane olivier [facility] POC CRITICAL 2022-12-11 ChristinaMontana [facility] of 21:34:00 [place] Liane olivier [facility] POC GLUCOSE SCREEN 2022-12-11 [facility]Mont[facility] of 21:34:00 [place] Liane olivier [facility] POC CRITICAL 2022-12-11 [facility]Mont[facility] of 20:33:00 [place] Liane olivier [facility] POC GLUCOSE SCREEN 2022-12-11 [facility]Mont[facility] of 20:33:00 [place] Liane olivier [facility] POC GLUCOSE SCREEN 2022-12-11 [facility]Mont[facility] of 18:35:00 [place] Liane olivier [facility] POC GLUCOSE SCREEN 2022-12-11 [facility]Mont[facility] of 14:14:00 [place] Anderso [facility] LACTIC ACID, VENOUS 2022-12-11 [facility] o f 10:37:59 [facility] BASIC METABOLIC PANEL, 2022-12-11 Mana Powers [facility] of CALCIUM TOTAL 10:30:00 [facility] MAGNESIUM LEVEL 2022-12-11 Mana Powers [place] of 10:30:00 [facility] PHOSPHORUS LEVEL 2022-12-11 [facility]Wil[facility] of 10:30:00 [facility] COMPLETE BLOOD COUNT W/ 2022-12-11 Mana Powers [facility] ty of DIFFERENTIAL 10:30:00 [facility] GLUCOSE LEVEL 2022-12-11 Irina Houston [place] of 10:30:00 [facility] BLOOD UREA NITROGEN 2022-12-11 Irina Hosuton [place] of 10:30:00 [facility] ELECTROLYTE PANEL 2022-12-11 Irina Houston [place] of 10:30:00 [facility] SERUM CREATININE 2022-12-11 Irina Houston [place] of 10:30:00 [facility] .GLOMERULAR FILTRATION RATE 2022-12-11 Irina Houston Uni versity of 10:30:00 [place] [facility] CALCIUM LEVEL TOTAL 2022-12-11 Irina Houston [place] of 10:30:00 [facility] Results CBC 2022-12-11 Irina Houston [place] of 10:30:00 [facility] MANUAL DIFFERENTIAL 2022-12-11 Irina Houston [place] of 10:30:00 [facility] POC GLUCOSE SCREEN 2022-12-11 [facility] 07:20:00 Jaycee [facility] POC GLUCOSE SCREEN 2022-12-11 [facility] of 04:00:00 Jaycee [place] [facility] POC GLUCOSE SCREEN 2022-12-11 [facility] 00:29:00 Jaycee [facility] POC GLUCOSE SCREEN 2022-12-10 [facility] [address] 23:20:00 Jaycee [facility] CT HEAD WO CONTRAST 2022-12-10 [facility] o f 21:21:00 Jaycee [facility] POC GLUCOSE SCREEN 2022-12-10 [facility] of 19:45:00 ArlenJasmina [facility] POC GLUCOSE SCREEN 2022-12-10 ReguloAbelino [facility] o f 17:35:00 [facility] POC GLUCOSE SCREEN 2022-12-10 Mer Milian [place] of 13:30:00 [facility] URINE CULTURE 2022-12-10 Tammy young [place] of 12:13:00 [facility] URINALYSIS WITH MICROSCOPIC 2022-12-10 shari Tammy [facility] ersity of IF INDICATED 12:13:00 [facility] BASIC METABOLIC PANEL, 2022-12-10 Mana Powers y of CALCIUM TOTAL 11:13:00 [facility] MAGNESIUM LEVEL 2022-12-10 Mana Powers [place] of 11:13:00 [facility] PHOSPHORUS LEVEL 2022-12-10 Mana Powers [place] of 11:13:00 [facility] COMPLETE BLOOD COUNT W/ 2022-12-10 Mana Powers ty of DIFFERENTIAL 11:13:00 [facility] HEMOGLOBIN A1C 2022-12-10 Irina Houtson [place] of 11:13:00 [facility] GLUCOSE LEVEL 2022-12-10 Irina Houston [place] of 11:13:00 [facility] BLOOD UREA NITROGEN 2022-12-10 Irina Houston [place] of 11:13:00 [facility] ELECTROLYTE PANEL 2022-12-10 Irina Houston [place] of 11:13:00 [facility] SERUM CREATININE 2022-12-10 Irina Houston [place] of 11:13:00 [facility] .GLOMERULAR FILTRATION RATE 2022-12-10 Irina Houston Uni versity of 11:13:00 [facility] CALCIUM LEVEL TOTAL 2022-12-10 Irina Houston [place] of 11:13:00 [facility] Results CBC 2022-12-10 Irina Houston [place] of 11:13:00 [facility] MANUAL DIFFERENTIAL 2022-12-10 Irina Houston [place] of 11:13:00 [facility] POC GLUCOSE SCREEN 2022-12-10 Mer Milian [place] of 07:38:00 [facility] POC GLUCOSE SCREEN 2022-12-10 Mer Milian [place] of 05:18:00 [facility] POC VENOUS BLOOD GAS + 2022-12-10 Roberto Carlos Walsh [facility] y of LACTATE 03:36:00 [facility] COVID-19 (SARS-COV-2) 2022-12-10 Roberto Carlos Walsh [place] of ASYMPTOMATIC-LT 00:01:00 [facility] AMMONIA LEVEL 2022-12-10 Tanvi [facility] of 00:01:00 [facility] COMPLETE BLOOD COUNT W/ 2022-12-10 Tanvi Tammy [facility] ty of DIFFERENTIAL 00:01:00 [facility] COMPREHENSIVE METABOLIC PANEL 2022-12-10 Tammy Mike iversity of 00:01:00 [facility] MAGNESIUM LEVEL 2022-12-10 Tanvi [facility] of 00:01:00 [facility] PHOSPHORUS LEVEL 2022-12-10 [facility] of 00:01:00 [facility] PROTHROMBIN TIME 2022-12-10 Tanvi Tammy [place] of 00:01:00 [facility] APTT 2022-12-10 Tanvi [facility] of 00:01:00 [facility] LACTATE DEHYDROGENASE 2022-12-10 Tanvi [facility] of 00:01:00 [facility] Results CBC 2022-12-10 Tanvi [facility] of 00:01:00 [place] [facility] MANUAL DIFFERENTIAL 2022-12-10 [facility] o f 00:01:00 [facility] GLUCOSE LEVEL 2022-12-10 [facility] of 00:01:00 [facility] BLOOD UREA NITROGEN 2022-12-10 [facility] o f 00:01:00 [facility] ELECTROLYTE PANEL 2022-12-10 [facility] of 00:01:00 [facility] SERUM CREATININE 2022-12-10 [facility] of 00:01:00 [facility] .GLOMERULAR FILTRATION RATE 2022-12-10 [facility] ersity of 00:01:00 [facility] CALCIUM LEVEL TOTAL 2022-12-10 [facility] o f 00:01:00 [facility] ALBUMIN LEVEL 2022-12-10 [facility] of 00:01:00 [facility] ALKALINE PHOSPHATASE 2022-12-10 [facility] of 00:01:00 [facility] ALANINE AMINOTRANSFERASE 2022-12-10 [facility] ity of 00:01:00 [facility] ASPARTATE AMINOTRANSFERASE 2022-12-10 [facility] rsity of 00:01:00 [facility] TOTAL PROTEIN 2022-12-10 [facility] of 00:01:00 [facility] FRACTIONATED BILIRUBIN 2022-12-10 [facility] of 00:01:00 [facility] HP MDA CHRISTINE MUTATION 2022-12-04 Lorena Hdez Uni versity of ANALYSIS PRECISION PANEL 16:56:00 [facility] HP SOLID TUMOR GENOMIC 2022-12-04 Lorena Hdez U niversity of ASSAY FUSIONS 2018 16:56:00 [place] MD Portillo rson INTERPRETATION [facility] RE[facility] HP MOLECULAR BLOOD COLLECTION 2022-12-04 Lorena Hdez [place] of 16:56:00 [place] MD Liane olivier [facility] MRI SKULL BASE WITH AND 2022-11-30 Lorena Hdez Uni versity of WITHOUT CONTRAST 17:12:54 Bere blank [facility] PETCT CONTRAST ENHANCED 2022-11-27 [facility] of INITIAL TREATMENT STRATEGY 21:57:06 Ashleigh Blackburn MD [facility] POC GLUCOSE SCREEN 2022-11-27 [facility] of 19:06:00 Ashleigh [place] MD Rob [facility] POC GLUCOSE SCREEN 2022-11-27 [facility] of 18:29:00 Ashleigh [place] [facility] MD NGS BLOOD CONTROL 2022-11-26 Lorena Hdez [facility] sity of 19:07:00 [place] Liane olivier [facility] COMPLETE BLOOD COUNT W/ 2022-11-26 Lorena Hdez Uni versity of DIFFERENTIAL 19:07:00 [place] Liane olivier [facility] COMPREHENSIVE METABOLIC PANEL 2022-11-26 Lorena Hdez [facility] of 19:07:00 [place] Liane olivier [facility] FREE THYROXINE 2022-11-26 [facility] of 19:07:00 [place] Liane olivier [facility] LACTATE DEHYDROGENASE 2022-11-26 Lorena Hdez [facility] rsity of 19:07:00 [place] Liane olivier [facility] MAGNESIUM LEVEL 2022-11-26 [facility] of 19:07:00 [place] Rob [facility] PHOSPHORUS LEVEL 2022-11-26 [facility] of 19:07:00 [place] Liane olivier [facility] URIC ACID 2022-11-26 [facility] of 19:07:00 [place] [facility] VITAMIN D 25 HYDROXY LEVEL 2022-11-26 [facility] of 19:07:00 [place] Rob [facility] THYROID STIMULATING HORMONE 2022-11-26 [facility] of 19:07:00 [place] Liane olivier [facility] APTT 2022-11-26 [facility] of 19:07:00 [place] [facility] 2022-11-26 [facility] 19:07:00 [place] Liane olivier [facility] Results CBC 2022-11-26 [facility] 19:07:00 [place] Liane olivier [facility] MANUAL DIFFERENTIAL 2022-11-26 Lorena Hdez [facility] ity of 19:07:00 [place] Liane olivier [facility] GLUCOSE LEVEL 2022-11-26 [facility] 19:07:00 [place] Liane olivier [facility] BLOOD UREA NITROGEN 2022-11-26 [facility] 19:07:00 [place] Liane olivier [facility] ELECTROLYTE PANEL 2022-11-26 Simona [facility]dezfer Kayla [facility] 19:07:00 [place] Liane olivier [facility] SERUM CREATININE 2022-11-26 [facility] 19:07:00 [place] [facility] .GLOMERULAR FILTRATION RATE 2022-11-26 [facility] 19:07:00 [place] Liane olivier [facility] CALCIUM LEVEL TOTAL 2022-11-26 [facility] 19:07:00 [place] Liane olivier [facility] ALBUMIN LEVEL 2022-11-26 [facility] 19:07:00 [place] Liane olivier [facility] ALKALINE PHOSPHATASE 2022-11-26 Lorena Hdez [facility] sity of 19:07:00 Bere olivier [facility] ALANINE AMINOTRANSFERASE 2022-11-26 Lorena Hdez iversity of 19:07:00 [place] Liane olivier [facility] ASPARTATE AMINOTRANSFERASE 2022-11-26 [facility] 19:07:00 [place] [facility] TOTAL PROTEIN 2022-11-26 [facility] 19:07:00 [place] Liane olivier [facility] FRACTIONATED BILIRUBIN 2022-11-26 [facility] ers[facility] of 19:07:00 [place] [facility] AP NTRK1 FUSION ANALYSIS 2022-11-26 [facility] of MATERIAL REQUEST 18:43:02 Bere Carreon [facility] ANA CRISTINA GRIFFIN ALK MUTATION ANALAYSIS 2022-11-26 Lorena Hdez [facility] of MATERIAL REQUEST 18:43:02 [place] Carreon [facility] AP NTRK3 FUSION ANALYSIS 2022-11-26 Lorena Hdez [place] of MATERIAL REQUEST 18:43:02 Bere GRIFFIN Lauri [facility] AP EGFR MUTATION MATERIAL 2022-11-26 Lorena Hdez [facility] of REQUEST 18:43:02 [place] [facility] ANA CRISTINA GRIFFIN ERBB2 MUTATION 2022-11-26 Lorena Hdez [facility] sity of ANALAYSIS MATERIAL REQUEST 18:43:02 [place] [facility] AP MTOR MATERIAL REQUEST 2022-11-26 [facility] 18:43:02 [place] [facility] ANA CRISTINA GRIFFIN PTEN MUTATION MATERIAL 2022-11-26 Lorena Hdez [facility] of REQUEST 18:43:02 [place] [facility] AP IHC PD-L1 MATERIAL REQUEST 2022-11-26 Lorena Hdez [facility] 18:43:02 [place] [facility] AP IHC HER2/MELISSA MATERIAL 2022-11-26 Lorena Hdez Un iversity of REQUEST 18:43:02 [place] [facility] HEPATITIS C VIRUS ANTIBODY 2022-11-17 Red Posada [facility] of 18:11:00 [place] [facility] COMPREHENSIVE METABOLIC PANEL 2022-11-17 Red Posada [facility] 18:11:00 [place] [facility] COMPLETE BLOOD COUNT W/ 2022-11-17 Red Posada [facility] ersity of DIFFERENTIAL 18:11:00 [place] [facility] APTT 2022-11-17 Red Posada [place] o f 18:11:00 [place] [facility] PROTHROMBIN TIME 2022-11-17 Red Posada [place] of 18:11:00 [place] [facility] CORTISOL 2022-11-17 Red Posada [place] o f 18:11:00 [place] [facility] ADRENOCORTICOTROPIC HORMONE 2022-11-17 Red Posada [facility] of 18:11:00 [place] [facility] ESTRADIOL LEVEL 2022-11-17 Antonella [facility] o f 18:11:00 [place] [facility] TESTOSTERONE LEVEL 2022-11-17 Red Posada [facility] of 18:11:00 [place] [facility] FOLLICLE STIMULATING HORMONE 2022-11-17 Red Posada [facility] of LEVEL 18:11:00 [place] [facility] LUTEINIZING HORMONE 2022-11-17 Red Posada [facility] of 18:11:00 [place] [facility] THYROID STIMULATING HORMONE 2022-11-17 Red Posada [facility] of 18:11:00 [place] [facility] FREE THYROXINE 2022-11-17 Antonella [facility] o f 18:11:00 [place] [facility] TOTAL T3 2022-11-17 Antonella Mage[facility] o f 18:11:00 [place] [facility] INSULIN LIKE GROWTH FACTOR 1 2022-11-17 Red Posada [facility] of 18:11:00 [place] [facility] PROLACTIN 2022-11-17 Antonella [facility] o f 18:11:00 [place] [facility] GLUCOSE LEVEL 2022-11-17 Antonella [facility] o f 18:11:00 [place] [facility] BLOOD UREA NITROGEN 2022-11-17 Red Posada [facility] ty of 18:11:00 [place] [facility] ELECTROLYTE PANEL 2022-11-17 Antonella Red [facility] of 18:11:00 [place] [facility] SERUM CREATININE 2022-11-17 Red Posada [facility] of 18:11:00 [place] [facility] .GLOMERULAR FILTRATION RATE 2022-11-17 Red Posada [facility] of 18:11:00 [place] [facility] CALCIUM LEVEL TOTAL 2022-11-17 Red Posada [facility] ty of 18:11:00 [place] [facility] ALBUMIN LEVEL 2022-11-17 Red Posada [place] o f 18:11:00 [place] [facility] ALKALINE PHOSPHATASE 2022-11-17 Red Posada [facility] ity of 18:11:00 [place] [facility] ALANINE AMINOTRANSFERASE 2022-11-17 Red Posada Uni versity of 18:11:00 [place] [facility] ASPARTATE AMINOTRANSFERASE 2022-11-17 Red Posada [facility] of 18:11:00 [place] [facility] TOTAL PROTEIN 2022-11-17 Red Posada [place] o f 18:11:00 [place] [facility] FRACTIONATED BILIRUBIN 2022-11-17 Red Posada Unive rsity of 18:11:00 [place] [facility] Results CBC 2022-11-17 Red Posada [place] f 18:11:00 [place] [facility] MANUAL DIFFERENTIAL 2022-11-17 Red Posada Universi ty of 18:11:00 [place] [facility] PATHOLOGY OUTSIDE 2022-10-16 [facility] of INTERPRETATION 00:00:00 [place] [facility] FLU VACC ([id number]), 6 MO-64 2022-09-21 Nereida Sheriff Un iversity of YRS, .5ML, IM, QUAD 15:41:00 [place] [facility] l (FLUCELVAX) Branch CT HEAD WO CONTRAST 2022-08-28 [facility] o f 14:23:13 [facility] POCT MOLECULAR FLU 2022-08-25 [facility] of 15:55:00 [facility] CBC W/AUTO DIFF WITH 2022-07-28 [facility] An ege of PLATELETS 12:34:00 Medicine COMPREHENSIVE METABOLIC PANEL 2022-07-28 [facility] 12:34:00 Medicine FOLATE 2022-07-28 [facility] o f 12:34:00 Medicine HEMOGLOBIN A1C 2022-07-28 [facility] o f 12:34:00 Medicine LIPID PANEL 2022-07-28 [facility] o f 12:34:00 Medicine PROTIME \\T\\ PTT 2022-07-28 [facility] o f 12:34:00 Medicine THYROID PROFILE (T3U - T4 - 2022-07-28 [facility] T7 - TSH) 12:34:00 Medicine URINALYSIS, COMPLETE W/REFLEX 2022-07-28 [facility] TO CULTURE 12:34:00 Medicine VITAMIN A 2022-07-28 [facility] o f 12:34:00 Medicine VITAMIN B1 2022-07-28 [facility] o f 12:34:00 Medicine VITAMIN B12 2022-07-28 [facility] o f 12:34:00 Medicine VITAMIN D 25 HYDROXY 2022-07-28 [facility] An ege of 12:34:00 Medicine IRON+TIBC+%SAT 2022-07-28 [facility] o f 12:34:00 Medicine FERRITIN 2022-07-28 [facility] o f 12:34:00 Medicine 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 2022-07-[address] [facility] KUB 11:59:00 [facility] IRON, TIBC AND FERRITIN PANEL 2022-07-08 [facility] 12:26:14 Medicine AMB REF TO BARIATRIC 2022-07-08 [facility] ege of 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 [facility] 12:26:14 Medicine AMB REF TO PHYSICAL MED REHAB 2022-07-08 [facility] 12:26:14 Medicine AMB REF TO BARIATRIC SURGERY 2022-06-16 [facility] 08:27:29 Medicine POCT-GLUCOSE METER 2022-01-[address] [facility] 13:43:00 [facility] REPORT OF PROCEDURE - 2022-01-09 Dewayne Wise [facility] ENDOSCOPY URL 12:37:11 [facility] REPORT OF PROCEDURE - 2022-01-09 Dewayne Wise [facility] URL 12:36:24 [facility] TISSUE EXAM 2022-01-[address] [facility] 11:31:00 [facility] ESOPHAGEAL BALLOON 2022-01-[address] [facility] PROVOCATION STUDY 10:53:00 [facility] COLONOSCOPY, WITH POLYPECTOMY 2022-01-09 Dewayne Wise jaycee [facility] 10:53:00 [facility] ENDOSCOPY, UPPER GI TRACT, 2022-01-[address] [facility] WITH BIOPSY 10:53:00 [facility] POCT-GLUCOSE METER 2022-01-[address] [facility] 09:59:00 [facility] SARS-COV2/RT-PCR ([facility] & REF 2022-01-[address] [facility] LABS) 07:55:00 [facility] MANOMETRY, ANORECTAL 2021-12-[address] [facility] 09:24:00 [facility] Sleeve resection of stomach 2017-09-01 Dillon Seay 00:00:00 Laparoscopic adjustable 2013-11-01 [facility] gastric banding<sup>1</sup> 06:00:00 Removal of gastric band 2013-11-01 [facility] 00:00:00 Abdominal hysterectomy 2011-11-01 [facility] 00:00:00 Laparoscopic adjustable 2010-11-01 [facility] gastric banding 00:00:00 Appendectomy 2009-11-01 [facility] 00:00:00 Cholecystectomy 2009-11-01 [facility] 00:00:00 Knee joint operation 2006-11-01 [facility] torres 06:00:00 Shoulder joint operations 2006-11-01 Maynor Tsang 06:00:00 section 1984-11-01 Yossi olivier 00:00:00 Knee Surgery [facility] Procedure on Shoulder [facility] Maintenance of Gastric Band [facility] Gallbladder Surgery [facility] Appendectomy [facility] Plan of Care Planned Activity Planned Date Details Comments Source Future Scheduled 2032-01-[address] [facility] 00:00:00 malignant neoplasm [facility] Center colon (procedure) [code = 724238303] Future Scheduled 2032-01-[address] [facility] Test 00:00:00 [facility] colon (procedure) [code = 752584949] Future Scheduled 2032-01-[address] [facility] Test 00:00:00 malignant [facility] colon (procedure) [code = 389872857] Future Scheduled 2032-01-[address] [facility] Test 00:00:00 malignant [facility] colon (procedure) [code = 113948544] Future Scheduled 2032-01-[address] [facility] Test 00:00:00 malignant neoplasm [facility] Center colon (procedure) [code = 980632317] Future Scheduled 2032-01-[address] [facility] Test 00:00:00 malignant neoplasm of [facility]ica [facility] Center colon (procedure) [code = 385436022] Future Scheduled 2032-01-[address] [facility] Test 00:00:00 malignant neoplasm of [facility] Center colon (procedure) [code = 518077751] Future Scheduled 2032-01-[address] [facility] Test 00:00:00 malignant neoplasm [facility] Center colon (procedure) [code = 956888691] Future Scheduled 2032-01-[address] [facility] Test 00:00:00 malignant neoplasm [facility] Center colon (procedure) [code = 471187082] Future Scheduled 2032-01-[address] [facility] Test 00:00:00 malignant neoplasm [facility] Center colon (procedure) [code = 888489095] Future Scheduled 2032-01-[address] [facility] Test 00:00:00 malignant neoplasm of [facility] Center colon (procedure) [code = 152993301] Future Scheduled 2032-01-[address] [facility] Test 00:00:00 malignant neoplasm of [facility] Center colon (procedure) [code = 628265882] Future Scheduled 2032-01-[address] [facility] Test 00:00:00 malignant neoplasm of [facility] Center colon (procedure) [code = 058417686] Future Scheduled 2032-01-[address] [facility] Test 00:00:00 malignant neoplasm of [facility] Center colon (procedure) [code = 517800095] Future Scheduled 2032-01-[address] [facility] 00[facility]00:00 malignant neoplasm of [facility] Center colon (procedure) [code = 137549472] Future Scheduled 2032-01-[address] [facility] 00:00:00 malignant neoplasm of [facility] Center colon (procedure) [code = 268801405] Future Scheduled 2032-01-[address] [facility] 00:00:00 malignant neoplasm of [facility]ica [facility] Center colon (procedure) [code = 007993124] Future Scheduled 2032-01-[address] [facility] 00:00:00 malignant neoplasm of [facility] Center colon (procedure) [code = 056625890] Future Scheduled 2032-01-[address] [facility] Test 00:00:00 malignant neoplasm of [facility] Center colon (procedure) [code = 928985127] Future Scheduled 2032-01-[address] [facility] Test 00:00:00 malignant neoplasm of [facility]ica [facility] Center colon (procedure) [code = 668574669] Future Scheduled 2032-01-[address] [facility] Test 00:00:00 malignant neoplasm of [facility]ica [facility] Center colon (procedure) [code = 709652018] Future Scheduled 2032-01-[address] [facility] 00:00:00 malignant neoplasm of [facility]ica [facility] Center colon (procedure) [code = 152752000] Future Scheduled 2023-07-[address] [...] INFLUENZA VACCINE (Season Ended)] Future Scheduled 2023-07-[address] [facility] Test 00:00:00 (Season Ended) [code = Medic al Center Influenza Vaccine (Season Ended)] Future Scheduled 2023-04-13 COVID-19 Vaccination Uni versity of Test 10:02:18 (4 - Booster for Bere GRIFFIN Moderna series) [code Lauri on Cancer = COVID-19 Vaccination Cente r (4 - Booster for Moderna series)] Future Scheduled 2023-03-30 COVID-19 Vaccination Uni versity of Test 11:51:04 (4 - Booster for [place] MD Moderna series) [code Lauri on Cancer = COVID-19 Vaccination Cente r (4 - Booster for Moderna series)] Future Scheduled 2023-03-19 COVID-19 Vaccination Uni versity of Test 08:32:18 (4 - Booster for [place] MD Moderna series) [code Lauri on Cancer = COVID-19 Vaccination Cente r (4 - Booster for Moderna series)] Future Scheduled 2023-03-12 COVID-19 Vaccination Uni versity of Test 07:01:22 (4 - Booster for [place] MD Moderna series) [code Lauri on Cancer = [...] of Med icine breast (procedure) [code = 656257733] Future Scheduled 2022-12-02 Pneumococcal Combined [employer] [facility] 14:19:17 (1 - PCV) [code = of Medicin e Pneumococcal Combined (1 - PCV)] Future Scheduled 2022-12-02 TETANUS SHOT (ADULT) [employer] Test 14:19:17 [code = TETANUS SHOT of Medi cine (ADULT)] Future Scheduled 2022-12-02 Diabetic foot [facility] Col lege Test 14:19:17 examination of Medicine (regime/therapy) [code = 987369469] Future Scheduled 2022-12-02 Annual Diabetic [facility] Test 14:19:17 Retinopathy Screening of Med icine [code = Annual Diabetic Retinopathy Screening] Future Scheduled 2022-12-02 [facility]17 virus screening of Medicine (procedure) [code = 708510616] Future Scheduled 2022-12-02 Screening for [facility] Test 14:19:17 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) [code = 543152845] Future Scheduled 2022-12-02 ZOSTER VACCINE (1 of [employer] [facility] Test 14:19:17 2) [code = ZOSTER of Medicin e VACCINE (1 of 2)] Future Scheduled 2022-12-02 COVID-19 Vaccine (4 - Ba [facility] Test 14:19:17 Booster for Moderna of Medic [...] Future Scheduled 2022-12-02 BMI Follow Up Plan [facility] Test 14:19:17 [code = BMI Follow Up of Med icine Plan] Future Scheduled 2022-12-02 Screening for [facility] Test 14:19:17 malignant neoplasm of of Med icine colon (procedure) [code = 248194335] Future Scheduled 2022-11-[address] [...] SCREENING (12+)] Future Scheduled 2022-08-31 Screening for [facility] Test 13:08:39 malignant neoplasm of of Med icine breast (procedure) [code = 295652946] Future Scheduled 2022-08-31 Pneumococcal Combined [employer] Test 13:08:39 (1 - PCV) [code = of Medicin e Pneumococcal Combined (1 - PCV)] Future Scheduled 2022-08-31 TETANUS SHOT (ADULT) [facility] Test 13:08:39 [code = TETANUS SHOT of Medi cine (ADULT)] Future Scheduled 2022-08-31 Diabetic foot [facility] Test 13:08:39 examination of Medicine (regime/therapy) [code = 032461826] Future Scheduled 2022-08-31 ANNUAL DIABETIC [facility] Test 13:08:39 RETINOPATHY SCREENING of Med icine [code = ANNUAL DIABETIC RETINOPATHY SCREENING] Future Scheduled 2022-08-31 Hepatitis C screening [employer] Test 13:08:39 (procedure) [code = of Medic ine 856612505] Future Scheduled 2022-08-31 [facility]08[facility] virus screening of Medicine (procedure) [code = 309371000] Future Scheduled 2022-08-31 Screening for [facility] Test 13:08:39 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) [code = 310836858] Future Scheduled 2022-08-31 MEDICARE AWV (Initial) [employer] Test 13:08:39 [code = MEDICARE AWV of Medi cine (Initial)] Future Scheduled 2022-08-31 ZOSTER VACCINE (1 of [employer] Test 13:08:39 2) [code = ZOSTER of Medicin e VACCINE (1 of 2)] Future Scheduled 2022-08-31 COVID-19 Vaccine (4 - Ba [facility] Test 13:08:39 Booster for Moderna of Medic ine series) [code = COVID-19 Vaccine (4 - Booster for Moderna series)] Future Scheduled 2022-08-31 FLU VACCINE > 6 MONTHS [facility] 13:08:39 [code = FLU VACCINE > of Med icine 6 MONTHS] Future Scheduled 2022-08-31 BMI FOLLOW UP PLAN [employer] Test 13:08:39 [code = BMI FOLLOW UP of Med icine PLAN] Future Scheduled 2022-08-31 Screening for [facility] Test 13:08:39 malignant neoplasm of of Med icine colon (procedure) [code = 011661806] Future Scheduled 2022-08-11 Screening for [facility] Test 15:35:44 malignant neoplasm of of Med icine breast (procedure) [code = 219284206] Future Scheduled 2022-08-11 TETANUS SHOT (ADULT) [employer] Test 15:35:44 [code = TETANUS SHOT of Medi cine (ADULT)] Future Scheduled 2022-08-11 Diabetic foot [facility] Test 15:35:44 examination of Medicine (regime/therapy) [code = 330084986] Future Scheduled 2022-08-11 ANNUAL DIABETIC [facility] Test 15:35:44 RETINOPATHY SCREENING of Med icine [code = ANNUAL DIABETIC RETINOPATHY SCREENING] Future Scheduled 2022-08-11 Hepatitis C screening [employer] Test 15:35:44 (procedure) [code = of Medic ine 671730386] Future Scheduled 2022-08-11 [facility] virus screening of Medicine (procedure) [code = 936207124] Future Scheduled 2022-08-11 Screening for [facility] Test 15:35:44 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) [code = 685816870] Future Scheduled 2022-08-11 [facility] 15:35:44 [code = MEDICARE AWV of Medi cine (Initial)] Future Scheduled 2022-08-11 ZOSTER VACCINE (1 of [employer] Test 15:35:44 2) [code = ZOSTER of Medicin e VACCINE (1 of 2)] Future Scheduled 2022-08-11 COVID-19 Vaccine (4 - Ba [employer] Test 15:35:44 Booster for Moderna of Medic ine series) [code = COVID-19 Vaccine (4 - Booster for Moderna series)] Future Scheduled 2022-08-11 FLU VACCINE > 6 MONTHS B [facility] [employer] Test 15:35:44 [code = FLU VACCINE > of Med icine 6 MONTHS] Future Scheduled 2022-08-11 BMI FOLLOW UP PLAN [employer] Test 15:35:44 [code = BMI FOLLOW UP of Med icine PLAN] Future Scheduled 2022-08-11 Screening for [facility] Test 15:35:44 malignant neoplasm of of Med icine colon (procedure) [code = 217439514] Future Scheduled 2022-07-02 INFLUENZA VACCINE (#1) C [...] of Med icine breast (procedure) [code = 106962749] Future Scheduled 2022-06-16 TETANUS SHOT (ADULT) [employer] Test 07:59:04 [code = TETANUS SHOT of Medi cine (ADULT)] Future Scheduled 2022-06-16 BMI FOLLOW UP PLAN [employer] Test 07:59:04 [code = BMI FOLLOW UP of Med icine PLAN] Future Scheduled 2022-06-16 Hepatitis C screening [employer] Test 07:59:04 (procedure) [code = of Medic ine 233433308] Future Scheduled 2022-06-16 Human immunodeficiency [employer] Test 07:59:04 virus screening of Medicine (procedure) [code = 747921039] Future Scheduled 2022-06-16 Screening for [facility] Test 07:59:04 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) [code = 113349770] Future Scheduled 2022-06-16 MEDICARE AWV (Initial) [employer] Test 07:59:04 [code = MEDICARE AWV of Medi cine (Initial)] Future Scheduled 2022-06-16 ZOSTER VACCINE (1 of [employer] Test 07:59:04 2) [code = [...] of Med icine colon (procedure) [code = 902114554] Future Scheduled 2021-11-18 Screening for [facility] Test 09:34:08 malignant neoplasm of of Med icine colon (procedure) [code = 420685638] Future Scheduled 2021-11-18 Screening for [facility] Test 09:34:08 malignant neoplasm of of Med icine breast (procedure) [code = 857153172] Future Scheduled 2021-11-18 TETANUS SHOT (ADULT) [employer] Test 09:34:08 [code = TETANUS SHOT of Medi cine (ADULT)] Future Scheduled 2021-11-18 BMI FOLLOW UP PLAN [employer] Test 09:34:08 [code = BMI FOLLOW UP of Med icine PLAN] Future Scheduled 2021-11-18 Hepatitis C screening [employer] Test 09:34:08 (procedure) [code = of Medic ine 206226131] Future Scheduled 2021-11-18 Human immunodeficiency [employer] Test 09:34:08 virus screening of Medicine (procedure) [code = 409647561] Future Scheduled 2021-11-18 Screening for [facility] Test 09:34:08 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) [code = 876713359] Future Scheduled 2021-11-18 MEDICARE AWV (Initial) [employer] Test 09:34:08 [code = MEDICARE AWV of Medi cine (Initial)] Future Scheduled 2021-11-18 ZOSTER VACCINE (1 of [employer] Test 09:34:08 2) [code = [...] Scheduled 2021-11-06 ANOREC MANOM AND 1 Occurrences [facility] Test 14:07:12 EMG-GI DEPT [code = starting of Medic ine NOCPT] 11/06/2021 until 05/06/2022 Future Scheduled 2021-11-06 EGD W/MAC - GI DEPT 1 Occurrences [facility] Test 14:07:11 [code = 09191] starting of Medicine 11/06/2021 until 05/06/2022 Future Scheduled 2021-11-06 COLONOSCOPY W MAC GI 1 Occurrences [facility] Test 14:07:11 DEPT [code = 00310] starting of Medic ine 11/06/2021 until 05/06/2022 [...] [facility] s Test 00:00:00 (procedure) [code = [facility] 18623196] Future Scheduled [address] [facility] Test 00:00:00 (procedure) [code = [facility] 99071193] Future Scheduled [address] [facility] Test 00:00:00 (procedure) [code = [facility] 04332481] Future Scheduled [address] [facility] Test 00:00:00 (procedure) [code = [facility] 98736204] Future Scheduled [address] [facility] Test 00:00:00 (procedure) [code = [facility] 27700465] Future Scheduled [address] [facility] Test 00:00:00 (procedure) [code = [facility] 27496461] Future Scheduled [address] [facility] Test 00:00:00 (procedure) [code = [facility] 54292722] Future Scheduled [address] [facility] Test 00:00:00 (procedure) [code = [facility] 72476178] Future Scheduled [address] [facility] Test 00:00:00 (procedure) [code = [facility] 32646478] Future Scheduled [address] [facility] Test 00:00:00 (procedure) [code = [facility] 54364223] Future Scheduled [address] [facility] Test 00:00:00 (procedure) [code = [facility] 65655608] Future Scheduled 2011-11-[address] [...] Medica l Center cervix (procedure) [code = 808473164] Future Scheduled [address] [facility] 00:[facility]:00 malignant neoplasm of [facility]ica [facility] Center cervix (procedure) [code = 680609596] Future Scheduled [address] [facility] Test 00:00:00 malignant neoplasm of [facility] cervix (procedure) [code = 015905093] Future Scheduled [address] [facility] Test 00:00:00 malignant neoplasm of [facility] Center cervix (procedure) [code = 030297782] Future Scheduled [address] [facility] Test 00:00:00 malignant neoplasm of [facility] Center cervix (procedure) [code = 693321883] Future Scheduled [address] [facility] Test 00:00:00 malignant neoplasm of [facility] Center cervix (procedure) [code = 194802963] Future Scheduled [address] [facility] Test 00:00:00 malignant neoplasm of [facility] Center cervix (procedure) [code = 375322717] Future Scheduled [address] [facility] Test 00:00:00 malignant neoplasm of [facility]ica [facility] Center cervix (procedure) [code = 687937332] Future Scheduled [address] [facility] Test 00:00:00 malignant neoplasm of [facility]ica [facility] Center cervix (procedure) [code = 352250167] Future Scheduled [address] [facility] Test 00:00:00 malignant neoplasm of [facility] Center cervix (procedure) [code = 358067100] Future Scheduled [address] [facility] Test 00:00:00 malignant neoplasm of [facility] Center cervix (procedure) [code = 789676890] Future Scheduled 1986 DTAP/TDAP/TD VACCINES [facility] [...] Medica l Center breast (procedure) [code = 021645036] Future Scheduled [address] [facility] Test 00:00:00 (combo) [code = CT Medical C enter Colonography (combo)] Future Scheduled [address] [facility] Test 00:00:00 malignant neoplasm of Medica l Center colon (procedure) [code = 953187067] Future Scheduled [address] [facility] Test 00:00:00 malignant neoplasm of Medica [facility] Center colon (procedure) [code = 017823305] Future Scheduled 1967 Sigmoidoscopy [facility]] Medical Paol[facility] r Future Scheduled [address] [facility] Test 00:00:00 malignant neoplasm of Medica l Center breast (procedure) [code = 329984403] Future Scheduled [address] [facility] Test 00:00:00 (combo) [code = CT Medical C enter Colonography (combo)] Future Scheduled [address] [facility] Test 00:00:00 malignant neoplasm of Medica l Center colon (procedure) [code = 408928159] Future Scheduled [address] [facility] Test 00:00:00 malignant neoplasm of [facility]ica [facility] Center colon (procedure) [code = 792404637] Future Scheduled 1967 [facility]oidoscopy [facility]oscopy] Medical Paoloe r Future Scheduled [address] [facility] Test 00:00:00 malignant neoplasm of Medica l Center breast (procedure) [code = 830877368] Future Scheduled [address] [facility] Test 00:00:00 (combo) [code = CT Medical C enter Colonography (combo)] Future Scheduled [address] [facility] Test 00:00:00 malignant neoplasm of Medica l Center colon (procedure) [code = 392177747] Future Scheduled [address] [facility] Test 00:00:00 malignant neoplasm of [facility]ica l Center colon (procedure) [code = 255948122] Future Scheduled 1967 [facility]oidoscopy [facility]] Medical James r Future Scheduled [address] [facility] Test 00:00:00 malignant neoplasm of Medica l Center breast (procedure) [code = 495632495] Future Scheduled [address] [facility] Test 00:00:00 (combo) [code = CT Medical C enter Colonography (combo)] Future Scheduled [address] [facility] Test 00:00:00 malignant neoplasm of Medica l Center colon (procedure) [code = 283110615] Future Scheduled [address] [facility] Test 00:00:00 malignant neoplasm of Medica l Center colon (procedure) [code = 179068756] Future Scheduled 1967 [facility]oidoscopy [facility]] Medical James r Future Scheduled [address] [facility] Test 00:00:00 malignant neoplasm of Medica l Center breast (procedure) [code = 737523075] Future Scheduled [address] [facility] Test 00:00:00 (combo) [code = CT Medical C enter Colonography (combo)] Future Scheduled [address] [facility] Test 00:00:00 malignant neoplasm of Medica l Center colon (procedure) [code = 285833068] Future Scheduled [address] [facility] Test 00:00:00 malignant neoplasm of Medica l Center colon (procedure) [code = 705723020] Future Scheduled 1967 [facility]oidoscopy [facility]oscopy] Medical James r Future Scheduled [address] [facility] Test 00:00:00 malignant neoplasm of Medica l Center breast (procedure) [code = 559805843] Future Scheduled [address] [facility] 00:00:00 (combo) [code = CT Medical C enter Colonography (combo)] Future Scheduled [address] [facility] Test 00:00:00 malignant neoplasm of Medica l Center colon (procedure) [code = 003685548] Future Scheduled [address] [facility] Test 00:00:00 malignant neoplasm of Medica l Center colon (procedure) [code = 617784347] Future Scheduled 1967 [facility] [address] [facility] 00:00:00 malignant neoplasm of Medica l Center breast (procedure) [code = 938539895] Future Scheduled [address] [facility] 00:00:00 (combo) [code = CT Medical C enter Colonography (combo)] Future Scheduled [address] [facility] Test 00:00:00 malignant neoplasm of Medica l Center colon (procedure) [code = 635434011] Future Scheduled [address] [facility] Test 00:00:00 malignant neoplasm of Medica l Center colon (procedure) [code = 113501902] Future Scheduled 1967 [facility]oscopy [facility] [address] [facility] 00:00:00 malignant neoplasm of Medica l Center breast (procedure) [code = 747700267] Future Scheduled [address] [facility] 00:00:00 (combo) [code = CT Medical C enter Colonography (combo)] Future Scheduled [address] [facility] 00:00:00 malignant neoplasm of Medica l Center colon (procedure) [code = 132819648] Future Scheduled [address] [facility] Test 00:00:00 malignant neoplasm of Medica l Center colon (procedure) [code = 256086919] Future Scheduled 1967 [facility] [address] [facility] 00:00:00 malignant neoplasm of Medica l Center breast (procedure) [code = 913142060] Future Scheduled [address] [facility] 00:00:00 (combo) [code = CT Medical C enter Colonography (combo)] Future Scheduled [address] [facility] 00:00:00 malignant neoplasm of Medica l Center colon (procedure) [code = 166915470] Future Scheduled [address] [facility] 00:00:00 malignant neoplasm of Medica l Center colon (procedure) [code = 803252291] Future Scheduled 1967 [facility]oidoscopy [facility] Future Scheduled [address] [facility] 00:00:00 malignant neoplasm of Medica l Center breast (procedure) [code = 554334191] Future Scheduled [address] [facility] 00:00:00 (combo) [code = CT Medical C enter Colonography (combo)] Future Scheduled [address] [facility] 00:00:00 malignant neoplasm of Medica l Center colon (procedure) [code = 408018009] Future Scheduled [address] [facility] 00:00:00 malignant neoplasm of Medica l Center colon (procedure) [code = 250917395] Future Scheduled 1967 [facility]oidoscopy [facility]] Medical Cent[facility] r Future Scheduled [address] [facility] 00:00:00 malignant neoplasm of Medica l Center breast (procedure) [code = 343420777] Future Scheduled [address] [facility] 00:00:00 (combo) [code = CT Medical C enter Colonography (combo)] Future Scheduled [address] [facility] Test 00:00:00 malignant neoplasm of Medica l Center colon (procedure) [code = 024143119] Future Scheduled [address] [facility] Test 00:00:00 malignant neoplasm of Medica l Center colon (procedure) [code = 188925944] Future Scheduled 1967 [facility]oid[facility] 00:[facility]] Medical Cente r Encounters Start End Encounter Admission Attending Care Care Encounter Source Date/Time Date/Time Type Type Clinicians Facility Department ID 2022-11-17 Outpatient SYSTEM, [facility] [id number] 12:15:21 PROVIDER Lauri olivier 2021-08-29 Emergency [facility] [id number] Univers 21:08:39 ity [facility] 2020-08-23 Inpatient Tapan Martin HCAPM ENDO [id number] [facility] 15:14:00 14 [facility] 2019-12-07 Inpatient KYLAH Rodriguez HCAPM ENDO [id number] [facility] 10:00:00 Zacarias 32 [facility] 2023-08-09 2023-08-09 [id number] Univers 09:45:00 09:45:00 [facility] 2023-04-09 2023-04-09 Rohith Thomas 1.2.840.1 [id number] Univers 00:00:00 00:00:00 Kyung 16373.1.1 ity of 3.412.2.7 [place] .3.479188 .8 [facility] 2023-04-08 2023-04-08 [facility] 1.2.840.114 [id number] Univers 10:00:00 10:15:00 Visit [facility] 350.1.13.10 it y of [place] 4.2.7.2.686 Frankie as JAVIER?BLEA [id number] [address] MEDICAL OFFICE BUILDING 2023-04-08 2023-04-08 Outpatient Mars[facility] [id number] Univers 10:00:00 09:19:43 [facility] 2023-04-08 2023-04-08 Rohith Gordon 1.2.840.1 [id number] Univers 00:00:00 00:00:00 Miguel Fernandez 37736.1.1 it y of 3.412.2.7 [place] .3.242573 .8 [facility] 2023-03-12 2023-04-06 Nutrition Kenya Agarwal. 1.2.840.1 [id number] [facility] 11:00:00 15:50:58 ClintLian Sourav 52876.1.1 ity of 3.412.2.7 [place] .3.885311 MD Soares8 [facility] 2023-03-12 2023-04-06 Nutrition KENYA CARRION 1.2.840.1 [id number] 10:43:22 15:50:58 16798.1.1 Bandar rso 3.412.2.7 n .3.522316 .8 2023-03-31 2023-03-31 Office TorinKarie 1.2.840.1 [id number] [facility] 10:30:00 11:14:16 Visit 07372.1.1 ity of 3.412.2.7 [place] .3.608222 MD [facility] 2023-03-31 2023-03-31 Outpatient KYLAH SherylSheryl GERARDODARIEL [facility] [place] [id number] 09:44:52 11:14:16 [facility] 2023-03-31 2023-03-31 Travel 1.2.840.1 1.2.875.471 [id number] Univers 00:00:00 00:00:00 67504.1.1 350.1.13.41 ity of 3.412.2.7 [place].3.698 [place] .3.469[place] 084.8 MD [facility] 2023-03-30 2023-03-30 Outpatient Aguilar_M VFP VFP [id number] 45-20 Village 00:00:00 00:00:00 [id number] Family Practic e 2023-03-26 2023-03-26 Telephone Kandy 1.2.840.1 [id number] [facility] 00:00:00 00:00:00 Viry March 78038.1.1 it y of 3.412.2.7 [place] .3.054010 MD Soares8 [facility] 2023-03-26 2023-03-26 Telephone Pomer, 1.2.840.1 [id number] Univers 00:00:00 00:00:00 Viry Singer 01202.1.1 it y of 3.412.2.7 [place] .3.152638 .8 [facility] 2023-03-19 2023-03-23 Telemcabrera Lopes, 1.2.840.1 [id number] Univers 13:30:00 07:29:30 ne Angela 17921.1.1 ity of 3.412.2.7 [place] .3.824428 MD Soares8 [facility] 2023-03-19 2023-03-23 Telemediccarlos Lopes, 1.2.840.1 [id number] Univers 13:30:00 07:29:30 ne Angela 44862.1.1 ity of 3.412.2.7 [place] .3.087606 MD Soares8 [facility] 2023-03-23 2023-03-23 Telephone [place], 1.2.840.1 [id number] Univers 00:00:00 00:00:00 Lindy 77182.1.1 ity of [place] 3.412.2.7 [place] .3.490153 MD Soares8 [facility] 2023-03-23 2023-03-23 Orders Lan, 1.2.840.1 [id number] Univers 00:00:00 00:00:00 Only Lindy 98455.1.1 ity of [place] 3.412.2.7 [place] .3.263272 MD Soares8 [facility] 2023-03-23 2023-03-23 Telephone [place], 1.2.840.1 [id number] Univers 00:00:00 00:00:00 Lindy 17206.1.1 ity of [place] 3.412.2.7 [place] .3.811792 MD Soares8 [facility] 2023-03-23 2023-03-23 Orders Lan, 1.2.840.1 [id number] Univers 00:00:00 00:00:00 Only Lindy 08243.1.1 ity of [place] 3.412.2.7 [place] .3.044223 MD [facility] 2023-03-18 2023-03-18 Telephone Kenny Power, 1.2.840.1 [id number] Univers 00:00:00 00:00:00 Celyne 95547.1.1 ity of 3.412.2.7 [place] .3.706571 MD Soares8 [facility] 2023-03-18 2023-03-18 Telephone Kenny Power, 1.2.840.1 [id number] Univers 00:00:00 00:00:00 Celyne 56526.1.1 ity of 3.412.2.7 [place] .3.733026 MD [facility] 2023-03-16 2023-03-16 Orders Lemuel 1.2.840.1 [id number] Univers 00:00:00 00:00:00 Only Lorena 11444.1.1 ity of [place] 3.412.2.7 [place] .3.936944 MD [facility] 2023-03-16 2023-03-16 Orders Lemuel 1.2.840.1 [id number] Univers 00:00:00 00:00:00 Only Lorena 38432.1.1 ity of [place] 3.412.2.7 [place] .3.363418 MD [facility] 2023-03-12 2023-03-12 Orders Doctor ESPINOZA 1.2.840.114 [id number] Univers 00:00:00 00:00:00 Only Unassigned, STEVE 350.1.13.10 ity of [facility] 4.2.7.2.686 Frankie as [phone] [facility] mari 009 [place] 2023-03-11 2023-03-11 Infusion KYLAH Hdez, 1.2.840.1 [id number] Univers 13:30:00 15:40:13 Lorena 23210.1.1 ity of [place] 3.412.2.7 [place] .3.240737 MD Soares8 [facility] 2023-03-11 2023-03-11 Infusion Lemuel, 1.2.840.1 [id number] Univers 13:30:00 15:40:13 Lorena 57367.1.1 ity of [place] 3.412.2.7 [place] .3.753332 MD Soares8 [facility] 2023-03-11 2023-03-11 Follow-Up KYLAH Hdez, 1.2.840.1 [id number] Univers 11:20:00 12:42:16 Lorena 69981.1.1 ity of [place] 3.412.2.7 [place] .3.592877 MD Soares8 [facility] 2023-03-11 2023-03-11 Follow-Up Lemuel, 1.2.840.1 [id number] Univers 11:20:00 12:42:16 Lorena 25035.1.1 ity of [place] 3.412.2.7 [place] .3.227524 MD Soares8 [facility] 2023-03-11 2023-03-11 Outpatient KYLAH HDEZ, [facility] [id number] 11:07:27 11:16:17 LORENA Suraj [facility] 2023-03-11 2023-03-11 Travel 1.2.840.1 1.2.561.932 [id number] Univers 00:00:00 00:00:00 46446.1.1 350.1.13.41 ity of 3.412.2.7 2.[place].7.3.698 [place] .3.663062 084.8 MD Soares8 [facility] 2023-03-11 2023-03-11 Travel 1.2.840.1 1.2.072.968 [id number] Univers 00:00:00 00:00:00 86665.1.1 350.1.13.41 ity of 3.412.2.7 2.[place].7.3.698 [place] .3.406906 084.8 MD Soares8 [facility] 2023-03-09 2023-03-09 Telephone Hdez, 1.2.840.1 [id number] Univers 00:00:00 00:00:00 Lorena 41756.1.1 ity of [place] 3.412.2.7 [place] .3.468683 MD Soares8 [facility] 2023-03-09 2023-03-09 Telephone Hdez, 1.2.840.1 [id number] Univers 00:00:00 00:00:00 Lorena 84280.1.1 ity of [place] 3.412.2.7 [place] .3.513719 MD Soares8 [facility] 2023-03-04 2023-03-04 Nutrition EL Kenya Agarwal. 1.2.840.1 [id number] Univers 10:00:00 10:57:47 Lian Jaramillo 51731.1.1 ity of 3.412.2.7 [place] .3.327164 MD Soares8 [facility] 2023-03-04 2023-03-04 Nutrition Kenya Agarwal 1.2.840.1 [id number] Univers 10:00:00 10:57:47 Lian Jaramillo 09131.1.1 ity of 3.412.2.7 [place] .3.956477 MD Soares8 [facility] 2023-03-04 2023-03-04 Orders Hdez, 1.2.840.1 [id number] Univers 00:00:00 00:00:00 Only Lorena 09561.1.1 ity of [place] 3.412.2.7 [place] .3.254200 MD Soares8 [facility] 2023-03-04 2023-03-04 Telephone Doyle, 1.2.840.1 [id number] Univers 00:00:00 00:00:00 Tita Mayorga 20864.1.1 ity of 3.412.2.7 [place] .3.953125 .8 [facility] 2023-03-04 2023-03-04 Anabell Gordon 1.2.840.1 [id number] Univers 00:00:00 00:00:00 Only Miguel Fernandez 59747.1.1 it y of 3.412.2.7 [place] .3.767798 .8 [facility] 2023-03-04 2023-03-04 OLGA Yost 1.2.840.114 [id number] Univers 00:00:00 00:00:00 Deyanira WILSON 350.1.13.10 it y of [facility] 4.2.7.2.686 Frankie as [id number] [place] [address] [place] 2023-03-04 2023-03-04 Anabell Hdez 1.2.840.1 [id number] Univers 00:00:00 00:00:00 Only Lorena 35005.1.1 ity of [place] 3.412.2.7 [place] .3.291755 .8 [facility] 2023-03-04 2023-03-04 Telephone Doyle, 1.2.840.1 [id number] Univers 00:00:00 00:00:00 Tita Mayorga 77689.1.1 ity of 3.412.2.7 [place] .3.482432 MD Soares8 [facility] 2023-03-04 2023-03-04 Anabell Gordon 1.2.840.1 [id number] Univers 00:00:00 00:00:00 Only Miguel Fernandez 52264.1.1 it y of 3.412.2.7 [place] .3.792983 MD Soares8 [facility] 2023-03-03 2023-03-03 Outpatient KYLAH HDEZ MDA [facility] [id number] 12:48:25 13:03:52 LORENA olivier 2023-03-03 2023-03-03 Follow-Up KYLAH Power, 1.2.840.1 [id number] Univers 11:40:00 12:57:39 Celyne 55763.1.1 ity of 3.412.2.7 [place] .3.010498 MD [facility] 2023-03-03 2023-03-03 Follow-Up Kenny Power, 1.2.840.1 [id number] Univers 11:40:00 12:57:39 Celyne 49248.1.1 ity of 3.412.2.7 [place] .3.491850 MD [facility] 2023-03-03 2023-03-03 Rohith Santillan, 1.2.840.1 [id number] Univers 00:00:00 00:00:00 Anumol 42653.1.1 ity of 3.412.2.7 [place] .3.195917 MD [facility] 2023-03-03 2023-03-03 Travel 1.2.840.1 1.2.654.857 [id number] Univers 00:00:00 00:00:00 92723.1.1 350.1.13.41 ity of 3.412.2.7 2.[place].7.3.698 [place] .3.119370 084.8 MD [facility] 2023-03-03 2023-03-03 Rohith Santillan, 1.2.840.1 [id number] Univers 00:00:00 00:00:00 Anumol 89797.1.1 ity of 3.412.2.7 [place] .3.487607 MD [facility] 2023-03-03 2023-03-03 Travel 1.2.840.1 1.2.778.975 [id number] Univers 00:00:00 00:00:00 43017.1.1 350.1.13.41 ity of 3.412.2.7 2.[place].7.3.698 [place] .3.221299 084.8 MD [facility] 2023-03-02 2023-03-02 Rohith Santillan 1.2.840.1 [id number] Univers 00:00:00 00:00:00 Anumol 31380.1.1 ity of 3.412.2.7 [place] .3.499147 MD Soares8 [facility] 2023-03-02 2023-03-02 Rohith Santillan, 1.2.840.1 [id number] Univers 00:00:00 00:00:00 Anumol 60953.1.1 ity of 3.412.2.7 [place] .3.112046 MD Soares8 [facility] 2023-02-26 2023-02-26 Telemedici KYLAH Gordon, 1.2.840.1 [id number] Univers 08:30:00 08:56:14 april Fernandez 95025.1.1 it y of 3.412.2.7 [place] .3.486682 .8 [facility] 2023-02-26 2023-02-26 Telemedici Gordon, 1.2.840.1 [id number] Univers 08:30:00 08:56:14 april Fernandez 89579.1.1 it y of 3.412.2.7 [place] .3.030275 MD Soares8 [facility] 2023-02-25 2023-02-25 Nutrition Kenya Carrion 1.2.840.1 [id number] Univers 10:00:00 11:13:11 Lian Jaramillo 15620.1.1 ity of 3.412.2.7 [place] .3.769302 MD Soares8 [facility] 2023-02-25 2023-02-25 Nutrition Kenya Agarwal 1.2.840.1 [id number] Univers 10:00:00 11:13:11 Lian Jaramillo 61029.1.1 ity of 3.412.2.7 [place] .3.441336 MD Soares8 [facility] 2023-02-23 2023-02-23 Rohith Sheriff [facility] 1.2.840.114 [id number] Univers 00:00:00 00:00:00 [facility] 350.1.13.10 it y of [place] 4.2.7.2.686 Frankie as JAVIER?BLEA [id number] Ut [place] [address] MEDICAL OFFICE [facility] 2023-02-19 2023-02-19 Telephone Tonny, 1.2.840.1 [id number] Univers 00:00:00 00:00:00 Anthony Benjamin 84143.1.1 ity of 3.412.2.7 [place] .3.427446 MD Soares8 [facility] 2023-02-19 2023-02-19 Telephone Tonny, 1.2.840.1 [id number] Univers 00:00:00 00:00:00 Anthony Benjamin 57112.1.1 ity of 3.412.2.7 [place] .3.761160 MD Soares8 [facility] 2023-02-18 2023-02-18 Nutrition EL Kenya Agarwal. 1.2.840.1 [id number] Univers 10:00:00 10:47:33 Lian Jaramillo 20219.1.1 ity of 3.412.2.7 [place] .3.552172 MD Soares8 [facility] 2023-02-18 2023-02-18 Nutrition Kenya Agarwal. 1.2.840.1 [id number] Univers 10:00:00 10:47:33 Lian Jaramillo 26052.1.1 ity of 3.412.2.7 [place] .3.662663 MD Soares8 [facility] 2023-02-05 2023-02-16 [facility] Deneen Guevara 1.2.840.1 [id number] Univers 16:49:00 16:40:00 Felisa Foreman 71730.1.1 ity of [place] Guy 3.412.2.7 Amanda Patino .3.725038 Thao Ny V. .8 A Derrick Sandoval n [place], Kofi Silvia [facility] 2023-02-05 2023-02-16 [facility] IsmaelDeneen Tomeka 1.2.840.1 [id number] 1 [id number] [facility] 16:49:00 16:40:00 Encounter Felisa Rashid 31128.1.1 ity of Romana Guy 3.412.2.7 [place] Amanda Proctor .3.355770 Thao Ny V. .8 A Derrick Sandoval, [facility] 2023-02-14 2023-02-14 Inpatient KYLAH WANG MDA MDA [id number] 11:31:10 12:01:35 [facility] Lauri o 2023-02-13 2023-02-13 Inpatient KYLAH TAO WANG MDA [id number] 15:30:24 16:08:06 [facility] Lauri o 2023-02-12 2023-02-12 [facility] Kenya Agarwal 1.2.840.1 [id number] 1 [id number] Univers 07:00:00 23:59:00 Encounter YRodger 14308.1.1 it y of 3.412.2.7 [place] .3.634068 MD Blair [facility] 2023-02-12 2023-02-12 [facility] Kenya Agarwal 1.2.840.1 [id number] 1 [id number] Univers 07:00:00 23:59:00 Encounter Y. 51983.1.1 it y of 3.412.2.7 [place] .3.724538 MD Soares8 [facility] 2023-02-12 2023-02-12 Clinical Jus, 1.2.840.1 [id number] [facility] 16:15:00 16:30:00 Support Winter 47596.1.1 ity of Gini 3.412.2.7 [place] .3.950846 MD Soares8 [facility] 2023-02-12 2023-02-12 [facility], 1.2.840.1 [id number] Univers 16:15:00 16:30:00 Support Winter 63317.1.1 ity of Gini 3.412.2.7 [place] .3.731968 MD Soares8 [facility] 2023-02-12 2023-02-12 Documentat Lamar, 1.2.840.1 [id number] Univers 00:00:00 00:00:00 ion Winter 56347.1.1 ity of Gini 3.412.2.7 [place] .3.987280 MD Soares8 [facility] 2023-02-12 2023-02-12 [facility], 1.2.840.1 [id number] Univers 00:00:00 00:00:00 Only Winter 85133.1.1 ity of Gini 3.412.2.7 [place] .3.850240 MD Soares8 [facility] 2023-02-12 2023-02-12 Orders Teo, 1.2.840.1 [id number] Univers 00:00:00 00:00:00 Only Dustin 99445.1.1 ity of 3.412.2.7 [place] .3.630860 MD Soaers8 [facility] 2023-02-12 2023-02-12 Documentat Lamar, 1.2.840.1 [id number] Univers 00:00:00 00:00:00 ion Winter 71140.1.1 ity of Gini 3.412.2.7 [place] .3.834123 MD Soares8 [facility] 2023-02-12 2023-02-12 [facility], 1.2.840.1 [id number] Univers 00:00:00 00:00:00 Only Winter 58154.1.1 ity of Gini 3.412.2.7 [place] .3.163000 MD Soares8 [facility] 2023-02-12 2023-02-12 Orders Bruce, 1.2.840.1 [id number] Univers 00:00:00 00:00:00 Only Dustin 10159.1.1 ity of 3.412.2.7 [place] .3.689376 MD Soraes8 [facility] 2023-02-10 2023-02-10 [facility] KENYA AGARWAL [facility] MDA [id number] 16:26:42 16:26:45 Lauri o n 2023-02-10 2023-02-10 Inpatient [place] [facility] MDA [id number] 11:58:56 12:28:35 KOFI Lauri o n 2023-02-10 2023-02-10 [facility] MDA [id number] 10:33:31 12:07:35 KOFI Lauri o n 2023-02-10 2023-02-10 Charla Coleman 1.2.840.1 [id number] Univers 00:00:00 00:00:00 Only Tomeka 55787.1.1 ity of 3.412.2.7 [place] .3.551525 MD Soares8 [facility] 2023-02-10 2023-02-10 Charla Coleman 1.2.840.1 [id number] 11 [id number] Univers 00:00:00 00:00:00 Only Tomeka 00713.1.1 ity of 3.412.2.7 [place] .3.040804 MD Blair [facility] 2023-02-09 2023-02-09 [facility] [facility] MDA [id number] 20:20:46 20:27:48 KOFI Lauri o n 2023-02-08 2023-02-08 [facility] Kenya Agarwal 1.2.840.1 [id number] 1 [id number] Univers 06:00:00 23:59:00 Encounter Y. 71697.1.1 it y of 3.412.2.7 [place] .3.931584 MD Soares8 [facility] 2023-02-08 2023-02-08 [facility] 1.2.840.1 [id number] 1 [id number] Univers 06:00:00 23:59:00 Encounter Y. 05170.1.1 it y of 3.412.2.7 [place] .3.623958 MD Soares8 [facility] 2023-02-08 2023-02-08 Inpatient KYLAH MORGAN-DAVID MDA MDA [id number] 11:08:59 11:38:36 DERRICK Olivier rso n 2023-02-08 2023-02-08 Inpatient KENYA CARRION MDA MDA [id number] 10:14:12 10:14:16 Lauri o n 2023-02-06 2023-02-06 Inpatient THAO OSORIO MDA MDA [id number] 15:39:36 16:04:43 Lauri o n 2023-02-06 2023-02-06 Inpatient THAO OSORIO MDA MDA [id number] 13:24:20 14:51:55 Lauri o n 2023-02-06 2023-02-06 Inpatient THAO OSORIO MDA MDA [id number] 13:24:15 14:51:51 Lauri o n 2023-02-06 2023-02-06 Travel 1.2.840.1 1.2.140.207 9229 [id number] Univers 00:00:00 00:00:00 87022.1.1 350.1.13.41 ity of 3.412.2.7 [place]7.3.698 [place] .3.466[place] Mariann.Lilly Soares8 [facility] 2023-02-06 2023-02-06 Travel 1.2.840.1 1.2.544.881 9948 [id number] Univers 00:00:00 00:00:00 02127.1.1 350.1.13.41 ity of 3.412.2.7 2.2.7.3.698 [place] .3.008618 084.8 MD Blair [facility] 2023-02-05 2023-02-05 Telephone Kenny Power, 1.2.840.1 [id number] Univers 00:00:00 00:00:00 Celyne 88350.1.1 ity of 3.412.2.7 [place] .3.426419 MD SoaresLilly [facility] 2023-02-05 2023-02-05 Telephone Kenny Power, 1.2.840.1 [id number] Univers 00:00:00 00:00:00 Celyne 76090.1.1 ity of 3.412.2.7 [place] .3.025247 MD Soares8 [facility] 2023-02-04 2023-02-04 Clinical [facility], 1.2.840.1 [id number] Univers 09:45:00 12:39:12 Support Winter 47084.1.1 ity of Gini 3.412.2.7 [place] .3Rodger707189 MD Soares8 [facility] 2023-02-04 2023-02-04 [facility], 1.2.840.1 [id number] Univers 09:45:00 12:39:12 Support Winter 20403.1.1 ity of Gini 3.412.2.7 [place] .3.524220 MD Blair [facility] 2023-02-04 2023-02-04 Outpatient KYLAH POWER MDA MDA [id number] 12:23:55 12:34:00 CELYNE Lauri jaramillo 2023-02-04 2023-02-04 Outpatient KENYA CARRION MDA MDA [id number] 11:16:00 11:43:29 Lauri olivier 2023-02-04 2023-02-04 Follow-Up KYLAH Power, 1.2.840.1 [id number] Univers 10:40:00 11:00:00 Celyne 21200.1.1 ity of 3.412.2.7 [place] .3Rodger360479 MD [facility]8 [facility] 2023-02-04 2023-02-04 Follow-Up Kenny Power, 1.2.840.1 [id number] Univers 10:40:00 11:00:00 Celyne 86215.1.1 ity of 3.412.2.7 [place] .3Rodger459976 MD Blair [facility] 2023-02-042023-02-04 Travel 1.2.840.1 1.2.721.996 6108 [id number] Univers 00:00:00 00:00:00 75084.1.1 350.1.13.41 ity of 3.412.2.7 2.[place].7.3.698 [place] .3.871895 084.8 MD Blair [facility] 2023-02-04 2023-02-04 Travel 1.2.840.1 1.2.171.270 9749 [id number] Univers 00:00:00 00:00:00 38474.1.1 350.1.13.41 ity of 3.412.2.7 2.2.7.3.698 [place] .3.170019 084.8 MD [facility] 2023-02-03 2023-02-03 Outpatient KENYA CARRION [facility] [id number] 14:18:38 14:50:54 [facility] 2023-02-03 2023-02-03 Infusion EL Kenny Power, 1.2.840.1 [id number] 1 [id number] Univers 11:00:00 14:13:00 Celyne 53818.1.1 ity of 3.412.2.7 [place] .3.706202 MD Blair [facility] 2023-02-03 2023-02-03 Infusion Kenny Power, 1.2.840.1 [id number] 1 [id number] Univers 11:00:00 14:13:00 Celyne 26301.1.1 ity of 3.412.2.7 [place] .3.141867 MD [facility] 2023-02-03 2023-02-03 Anabell Hdez, 1.2.840.1 [id number] Univers 00:00:00 00:00:00 Only Lorena 64906.1.1 ity of Kayla 3.412.2.7 [place] .3.725037 MD [facility] 2023-02-03 2023-02-03 Travel 1.2.840.1 1.2.980.304 2132 [id number] Univers 00:00:00 00:00:00 24143.1.1 350.1.13.41 ity of 3.412.2.7 2.2.7.3.698 [place] .3.750353 084.8 MD [facility] 2023-02-03 2023-02-03 Orders Hdez, 1.2.840.1 [id number] Univers 00:00:00 00:00:00 Only Lorena 41958.1.1 ity of Kayla 3.412.2.7 [place] .3.951001 MD Blair [facility] 2023-02-03 2023-02-03 Travel 1.2.840.1 1.2.192.838 1894 [id number] Univers 00:00:00 00:00:00 08978.1.1 350.1.13.41 ity of 3.412.2.7 2.2.7.3.698 [place] .3.858387 084.8 MD [facility] 2023-02-02 2023-02-02 Outpatient KENYA CARRION [facility] [id number] 13:32:42 14:29:34 [facility] 2023-02-02 2023-02-02 Travel 1.2.840.1 1.2.065.095 0757 [id number] Univers 00:00:00 00:00:00 63226.1.1 350.1.13.41 ity of 3.412.2.7 2.2.7.3.698 [place] .3.673243 084.8 MD Blair [facility] 2023-02-02 2023-02-02 Travel 1.2.840.1 1.2.288.108 8787 601154 Univers 00:00:00 00:00:00 29517.1.1 350.1.13.41 ity of 3.412.2.7 2.2.7.3.698 [place] .3.458426 084.8 MD Blair [facility] 2023-01-26 2023-02-01 [facility] Felisa Rashid 1.2.840.1 [id number] Univers 16:06:00 18:28:00 Encounter Jad Patel 84348.1.1 ity of Amanda Proctor 3.412.2.7 T Jaycee Castillo .3.926987 Brock Quijano .8 And erso Elian Oneal [facility] 2023-01-26 2023-02-01 [facility] Felisa Rashid 1.2.840.1 [id number] Univers 16:06:00 18:28:00 Encounter Jad Patel 66115.1.1 ity of Amadna Proctor 3.412.2.7 T Jaycee Castillo .3.517202 Brock Quijano .8 And erso Elian Oneal [facility] 2023-02-01 2023-02-01 Inpatient KYLAH KENYA AGARWAL MDA MDA [id number] 15:12:03 15:12:06 Lauri olivier 2023-01-31 2023-01-31 Rohith Madrigal 1.2.840.1 [id number] Univers 00:00:00 00:00:00 Glenda Peñaloza 72982.1.1 i ty of 3.412.2.7 [place] .3.797532 .[facility] 2023-01-31 2023-01-31 Rohith Madrigal 1.2.840.1 [id number] [id number] Univers 00:00:00 00:00:00 Glenda Peñaloza 02475.1.1 i ty of 3.412.2.7 [place] .3.201234 .8 [facility] 2023-01-29 2023-01-29 Inpatient EL JIGARMEGHANJASMYNMEGHAN MDA MDA [id number] 12:45:23 14:59:56 Suraj DESHPANDE 2023-01-28 2023-01-28 Telephone Matias Castillo2.840.1 [id number] Univers 00:00:00 00:00:00 Felisa M 23038.1.1 ity of 3.412.2.7 [place] .3.011435 MD Blair [facility] 2023-01-28 2023-01-28 Anabell Hdez, 1.2.840.1 [id number] Univers 00:00:00 00:00:00 Only Olrena 74931.1.1 ity of Kayla 3.412.2.7 [place] .3.463395 MD [facility] 2023-01-28 2023-01-28 Telephone Castillo, 1.2.840.1 [id number] [id number] Univers 00:00:00 00:00:00 Felisa Costa 70609.1.1 ity of 3.412.2.7 [place] .3.499063 MD Blair [facility] 2023-01-28 2023-01-28 Anabell Hdez, 1.2.840.1 [id number] Univers 00:00:00 00:00:00 Only Lorena 87993.1.1 ity of Kayla 3.412.2.7 [place] .3.697181 MD Blair [facility] 2023-01-27 2023-01-27 Inpatient KYLAH HANCOCK MDA MDA [id number] 17:00:08 17:15:25 PARK olivier 2023-01-27 2023-01-27 Inpatient KENYA CARRION [facility] MDA [id number] 16:29:18 16:29:21 Lauri jaramillo n 2023-01-26 2023-01-26 Travel 1.2.840.1 1.2.282.702 3897 [id number] Univers 00:00:00 00:00:00 56763.1.1 350.1.13.41 ity of 3.412.2.7 2.2.7.3.698 [place] .3.527890 084.8 MD Blair [facility] 2023-01-26 2023-01-26 Telephone Castillo, 1.2.840.1 [id number] [id number] Univers 00:00:00 00:00:00 Felisa M 83708.1.1 ity of 3.412.2.7 [place] .3.718103 MD Blair [facility] 2023-01-26 2023-01-26 Telephone Castillo, 1.2.840.1 [id number] 1104 [id number] Univers 00:00:00 00:00:00 Felisa M 18696.1.1 ity of 3.412.2.7 [place] .3.430908 MD Blair [facility] 2023-01-26 2023-01-26 Travel 1.2.840.1 1.2.393.041 5024 [id number] Univers 00:00:00 00:00:00 06516.1.1 350.1.13.41 ity of 3.412.2.7 2.2.7.3.698 [place] .3.444554 08Dannielle.8 MD Blair [facility] 2023-01-26 2023-01-26 Telephone Castillo, 1.2.840.1 [id number] 1104 [id number] Univers 00:00:00 00:00:00 Felisa M 80207.1.1 ity of 3.412.2.7 [place] .3.652169 MD Blair [facility] 2023-01-26 2023-01-26 Telephone Castillo, 1.2.840.1 [id number] 1104 [id number] Univers 00:00:00 00:00:00 Felisa M 56357.1.1 ity of 3.412.2.7 [place] .3.208559 MD Blair [facility] 2023-01-25 2023-01-25 [facility] Kenya Agarwal 1.2.840.1 [id number] Univers 06:00:00 23:59:00 Encounter Y. 47888.1.1 it y of 3.412.2.7 [place] .3.109818 MD Blair [facility] 2023-01-25 2023-01-25 [place] Rivas 1.2.840.1 [id number] 1 [id number] Univers 06:00:00 23:59:00 Encounter Y. 16210.1.1 it y of 3.412.2.7 [place] .3.778358 MD Blair [facility] 2023-01-25 2023-01-25 Nutrition Kenya Carrion 1.2.840.1 [id number] Univers 11:30:00 12:09:30 Lian Jaramillo 36163.1.1 ity of 3.412.2.7 [place] .3.053880 MD Blair [facility] 2023-01-25 2023-01-25 Nutrition Kenya Agarwal 1.2.840.1 [id number] Univers 11:30:00 12:09:30 Lian Jaramillo 18511.1.1 ity of 3.412.2.7 [place] .3.096015 MD Soares8 [facility] 2023-01-25 2023-01-25 Telephone Castillo, 1.2.840.1 [id number] [id number] Univers 00:00:00 00:00:00 Felisa Costa 54605.1.1 ity of 3.412.2.7 [place] .3.142333 MD Soares8 [facility] 2023-01-25 2023-01-25 Telephone Castillo, 1.2.840.1 [id number] 1104 [id number] Univers 00:00:00 00:00:00 Felisa Costa 93162.1.1 ity of 3.412.2.7 [place] .3.364566 MD Blair [facility] 2023-01-22 2023-01-22 Outpatient KENYA CARRION MDA [facility] [id number] 14:08:15 14:37:49 [facility] 2023-01-22 2023-01-22 Nutrition Kenya Carrion 1.2.840.1 [id number] Univers 10:30:00 13:09:10 Lian Jaramillo 71802.1.1 ity of 3.412.2.7 [place] .3.264705Dominique Soares8 [facility] 2023-01-22 2023-01-22 [place] Gastelum. 1.2.840.1 [id number] 23 [id number] Univers 10:30:00 13:09:10 Lian Jaramillo 68673.1.1 ity of 3.412.2.7 [place] .3.036489 MD Blair [facility] 2023-01-22 2023-01-22 Travel 1.2.840.1 1.2.877.223 3592 [id number] Univers 00:00:00 00:00:00 96903.1.1 350.1.13.41 ity of 3.412.2.7 2.2.7.3.698 [place] .3.606987 084.8 MD Blair [facility] 2023-01-22 2023-01-22 Travel 1.2.840.1 1.2.850.618 9175 [id number] Univers 00:00:00 00:00:00 82105.1.1 350.1.13.41 ity of 3.412.2.7 2.2.7.3.698 [place] .3.185763 084.8 MD Blair [facility] 2023-01-21 2023-01-21 Infusion KYLAH Hdez, 1.2.840.1 [id number] Univers 08:45:00 14:45:37 Lorena 77735.1.1 ity of Kayla 3.412.2.7 [place] .3.992328 MD Blair [facility] 2023-01-21 2023-01-21 Infusion Hdez, 1.2.840.1 [id number] Univers 08:45:00 14:45:37 Lorena 62573.1.1 ity of Kayla 3.412.2.7 [place] .3.718031 MD [facility] 2023-01-21 2023-01-21 Outpatient KENYA CARRION [facility] [id number] 13:30:26 14:05:07 [facility] 2023-01-21 2023-01-21 Follow-Up KYLAH Power, 1.2.840.1 [id number] Univers 08:00:00 09:18:40 Celyne 55424.1.1 ity of 3.412.2.7 [place] .3.636907 MD Blair [facility] 2023-01-21 2023-01-21 Follow-Up Kenny Power, 1.2.840.1 [id number] Univers 08:00:00 09:18:40 Celyne 85357.1.1 ity of 3.412.2.7 [place] .3.665397 MD Blair [facility] 2023-01-21 2023-01-21 Travel 1.2.840.1 1.2.163.011 4162 [id number] Univers 00:00:00 00:00:00 41283.1.1 350.1.13.41 ity of 3.412.2.7 2.2.7.3.698 [place] .3.046835 084.8 MD [facility] 2023-01-21 2023-01-21 Travel 1.2.840.1 1.2.199.018 0758 [id number] Univers 00:00:00 00:00:00 41634.1.1 350.1.13.41 ity of 3.412.2.7 2.2.7.3.698 [place] .3.515488 084.8 MD [facility] 2023-01-20 2023-01-20 Outpatient KENYA CARRION [facility] [id number] 12:58:49 13:48:03 Lauri [facility] 2023-01-20 2023-01-20 Consult KYLAH Ponce 1.2.840.1 [id number] [facility] 11:20:00 12:57:27 a, 88563.1.1 ity of [place]han[place].412.2.7 [place] .3.451236 MD Blair [facility] 2023-01-20 2023-01-20 Consult Rosario 1.2.840.1 [id number] Univers 11:20:00 12:57:27 a, 26259.1.1 ity of [place]han[place]m 3.412.2.7 [place] .3.691871 MD Blair [facility] 2023-01-20 2023-01-20 Outpatient KYLAH HDEZ MDA [facility] [id number] 12:44:37 12:57:03 LORENA Ruelas [facility] 2023-01-20 2023-01-20 Documentat Nabil, 1.2.840.1 [id number] Univers 00:00:00 00:00:00 ion Nereida H 93971.1.1 it y of 3.412.2.7 [place] .3.977785 MD [facility] 2023-01-20 2023-01-20 Travel 1.2.840.1 1.2.130.640 7179 [id number] Univers 00:00:00 00:00:00 11093.1.1 350.1.13.41 ity of 3.412.2.7 2.2.7.3.698 [place] .3.673651 084.8 MD [facility] 2023-01-20 2023-01-20 Documentemeterio Ferrer 1.2.840.1 [id number] 823 [id number] Univers 00:00:00 00:00:00 ion Nereida H 33525.1.1 it y of 3.412.2.7 [place] .3.120735 MD [facility] 2023-01-20 2023-01-20 Travel 1.2.840.1 1.2.478.576 2669 [id number] Univers 00:00:00 00:00:00 46164.1.1 350.1.13.41 ity of 3.412.2.7 2.2.7.3.698 [place] .3.286019 084.8 MD [facility] 2023-01-19 2023-01-19 Clinical KYLAH Luu, 1.2.840.1 [id number] Univers 15:30:00 16:24:21 Support Winter 73366.1.1 ity of Gini 3.412.2.7 Bere .3.200107 MD Soares8 [facility] 2023-01-19 2023-01-19 Clinical Luu, 1.2.840.1 [id number] 94035 27844 Univers 15:30:00 16:24:21 Support Winter 36831.1.1 ity of Gini 3.412.2.7 [place] .3.292933 .8 [facility] 2023-01-19 2023-01-19 Outpatient KENYA CARRION [facility] MDA [id number] 14:39:40 15:15:48 Lauri o 2023-01-19 2023-01-19 Outpatient Marsha SHERIFF [facility] [id number] Univers 09:00:00 09:00:00 NEREIDA pierre of [facility] [place] [facility] 2023-01-19 2023-01-19 Travel 1.2.840.1 1.2.742.152 3073 [id number] Univers 00:00:00 00:00:00 59011.1.1 350.1.13.41 ity of 3.412.2.7 2.2.7.3.698 [place] .3.795806 084.8 .8 [facility] 2023-01-19 2023-01-19 Travel 1.2.840.1 1.2.023.821 9781 [id number] Univers 00:00:00 00:00:00 11713.1.1 350.1.13.41 ity of 3.412.2.7 2.2.7.3.698 [place] .3.795236 084.8 MD Blair [facility] 2023-01-11 2023-01-18 [facility] ELIZABETH ShirleyungReva 1.2.840.1 [id number] Univers 19:31:00 19:34:00 Encounter Roberto Carlos Walsh 33725.1.1 ity of Chung Romero 3.412.2.7 [place] Jus Howardora .3.929130 Brock Quijano .8 [facility] 2023-01-11 2023-01-18 [facility] Reva Rajput 1.2.840.1 [id number] [facility] 19:31:00 19:34:00 Encounter Roberto Carlos Walsh 94296.1.1 ity of Chung Romero 3.412.2.7 [facility] .3.047702 Brock Quijano .8 [facility] 2023-01-17 2023-01-18 Inpatient EL VOI MDA MDA [id number] 23:34:01 00:08:34 BROCK Carreon o soy 2023-01-15 2023-01-15 Outpatient R RADIOLOGY [facility] [id number] Univers 10:00:00 10:00:00 ity of [facility] [place] [facility] 2023-01-14 2023-01-14 Inpatient KYLAH AGRAWAL MDA MDA [id number] 13:45:42 14:35:12 BROCK Carreon o soy 2023-01-14 2023-01-14 Inpatient KENYA CARRION TAO MDA [id number] 10:28:01 10:28:06 Lauri olivier 2023-01-14 2023-01-14 Orders Gorman, 1.2.840.1 [id number] 11 [id number] Univers 00:00:00 00:00:00 Only Mukund 71843.1.1 [place] .3.75[place] .8 [facility] 2023-01-14 2023-01-14 Orders Gorman, 1.2.840.1 [id number] Univers 00:00:00 00:00:00 Only [place] 58093.1.1 [place] .3.935[place] .[place] [facility] 2023-01-13 2023-01-13 Inpatient KYLAH AGRAWAL MDA MDA [id number] MD 18:17:55 18:32:15 BROCK Carreon [facility] 2023-01-12 2023-01-12 Inpatient KENYA CARRION [facility] [id number] 16:36:56 16:36:59 Lauri [facility] 2023-01-12 2023-01-12 Refill Ordaz, 1.2.840.1 [id number] Univers 00:00:00 00:00:00 Cerena 96328.1.1 ity of 3.412.2.7 [place] .3.761098 MD Soares8 [facility] 2023-01-12 2023-01-12 Refill Orlin, 1.2.840.1 [id number] Univers 00:00:00 00:00:00 Cerena 37210.1.1 ity of 3.412.2.7 [place] .3.021773 MD Blair [facility] 2023-01-11 2023-01-11 Travel 1.2.840.1 1.2.821.781 [id number] Univers 00:00:00 00:00:00 79180.1.1 350.1.13.41 ity of 3[place]412.2.[place]698 [place] .3.077547 084.8 MD Blair [facility] 2023-01-11 2023-01-11 Telephone Castillo, 1.2.840.1 [id number] [id number] Univers 00:00:00 00:00:00 Felisa M 08637.1.1 ity of 3.412.2.7 [place] .3.843078 MD Blair [facility] 2023-01-11 2023-01-11 Travel 1.2.840.1 1.2.155.460 3686 [id number] Univers 00:00:00 00:00:00 59905.1.1 350.1.13.41 ity of 3.412.2.[place].698 [place] .3.182418 084.8 MD Blair [facility] 2023-01-11 2023-01-11 Telephone Castillo, 1.2.840.1 [id number] [id number] Univers 00:00:00 00:00:00 Felisa Costa 17187.1.1 ity of 3.412.2.7 [place] .3.896440 MD Soares8 [facility] 2023-01-08 2023-01-08 Outpatient KENYA CARRION MDA [facility] [id number] 13:23:30 14:05:33 [facility] 2023-01-08 2023-01-08 Nutrition Kenya Carrion. 1.2.840.1 [id number] Univers 10:00:00 10:47:33 Lian Jaramillo 25906.1.1 ity of 3.412.2.7 [place] .3.299509 MD Soares8 [facility] 2023-01-08 2023-01-08 Nutrition Kenya Agarwal. 1.2.840.1 [id number] Univers 10:00:00 10:47:33 Lian Jaramillo 01983.1.1 ity of 3.412.2.7 [place] .3.999498 MD Soares8 [facility] 2023-01-08 2023-01-08 Travel 1.2.840.1 1.2.855.982 [id number] Univers 00:00:00 00:00:00 22364.1.1 350.1.13.41 ity of 3.412.2.[place].698 [place] .3.498908 084.8 MD Soares8 [facility] 2023-01-08 2023-01-08 Travel 1.2.840.1 1.2.835.015 [id number] Univers 00:00:00 00:00:00 37514.1.1 350.1.13.41 ity of 3.412.2.[place]3.698 [place] .3.842044 084.8 MD Soares8 [facility] 2023-01-07 2023-01-07 Infusion KYLAH Hdez, 1.2.840.1 [id number] Univers 09:00:00 13:58:13 Lorena 85114.1.1 ity of Kayla 3.412.2.7 [place] .3.416008 MD Soares8 [facility] 2023-01-07 2023-01-07 Infusion Lemuel, 1.2.840.1 [id number] Univers 09:00:00 13:58:13 Lorena 86355.1.1 ity of [place]la 3.412.2.7 [place] .3.774246 MD Soares8 [facility] 2023-01-07 2023-01-07 Follow-Up KYLAH Hdez, 1.2.840.1 [id number] [id number] Univers 08:40:00 09:41:57 Lorena 17491.1.1 ity of [place] 3.412.2.7 [place] .3.123915 MD Soares8 [facility] 2023-01-07 2023-01-07 Follow-Up Lemuel, 1.2.840.1 [id number] [id number] Univers 08:40:00 09:41:57 Lorena 10199.1.1 ity of [place] 3.412.2.7 [place] .3.207728 MD Soares8 [facility] 2023-01-07 2023-01-07 Outpatient KENYA CARRION MDA MDA [id number] 09:08:41 09:08:41 Lauri jaramillo 2023-01-07 2023-01-07 Outpatient KYLAH HDEZ MDA MDA [id number] 08:18:38 08:32:37 LORENA Ruelas so 2023-01-07 2023-01-07 Travel 1.2.840.1 1.2.266.571 [id number] [id number] Univers 00:00:00 00:00:00 58552.1.1 350.1.13.41 ity of 3.412.2.[place].698 [place] .3.284[place] 084.8 MD Blair [facility] 2023-01-07 2023-01-07 Travel 1.2.840.1 1.2.594.324 [id number] [id number] Univers 00:00:00 00:00:00 31834.1.1 350.1.13.41 ity of 3.412.2.[place].3.698 [place] 084.8 MD Soares8 [facility] 2023-01-06 2023-01-06 Outpatient KENYA CARRION [facility] [id number] 14:37:02 14:59:48 Lauri [facility] 2023-01-06 2023-01-06 Infusion KYLAH Hdez, 1.2.840.1 [id number] Univers 11:00:00 13:00:00 Lorena 15351.1.1 ity of Kay[place] 3.412.2.7 [place] .3.843862 MD Soares8 [facility] 2023-01-06 2023-01-06 Infusion Hdez, 1.2.840.1 [id number] Univers 11:00:00 13:00:00 Lorena 74209.1.1 ity of Kayla 3.412.2.7 [place] .3.229608 MD Soares8 [facility] 2023-01-06 2023-01-06 Travel 1.2.840.1 1.2.644.060 7384 [id number] Univers 00:00:00 00:00:00 12301.1.1 350.1.13.41 ity of 3.412.2.7 [place].3.698 [place] .3.54[place] 084.8 MD Soares8 [facility] 2023-01-06 2023-01-06 Travel 1.2.840.1 1.2.513.181 1553 [id number] Univers 00:00:00 00:00:00 80142.1.1 350.1.13.41 ity of 3.412.2.7 [place]7.3.698 [place] .3.580010 084.8 MD Soares8 [facility] 2023-01-05 2023-01-05 Outpatient KENYA CARRION [facility] [id number] 13:16:48 13:59:03 [facility] 2023-01-05 2023-01-05 Travel 1.2.840.1 1.2.689.549 2102 [id number] Univers 00:00:00 00:00:00 62402.1.1 350.1.13.41 ity of 3.412.2.7 [place].7.3.698 [place]3.090920 084.8 MD Soares8 [facility] 2023-01-05 2023-01-05 Travel 1.2.840.1 1.2.710.227 9057 [id number] Univers 00:00:00 00:00:00 51730.1.1 350.1.13.41 ity of 3.412.2.7 [place].7.3.698 [place] .3.123585 084.8 MD Soares8 [facility] 2023-01-04 2023-01-04 Infusion KYLAH Hdez, 1.2.840.1 [id number] 77518 [id number] Univers 10:45:00 14:51:21 Lorena 57926.1.1 ity of [place] 3.412.2.7 [place] .3.933758 MD Soares8 [facility] 2023-01-04 2023-01-04 Infusion Hdez, 1.2.840.1 [id number] Univers 10:45:00 14:51:21 Lorena 79847.1.1 ity of [place] 3.412.2.7 [place] .3.104992 MD Soares8 [facility] 2023-01-04 2023-01-04 Clinical [facility], 1.2.840.1 [id number] Univers 14:00:00 14:25:20 Support Winter 36524.1.1 ity of Gini 3.412.2.7 [place] .3.483385 MD [facility] 2023-01-04 2023-01-04 Clinical Lamar, 1.2.840.1 [id number] [id number] Univers 14:00:00 14:25:20 Support Winter 36879.1.1 ity of Gini 3.412.2.7 [place] .3.920457 MD [facility] 2023-01-04 2023-01-04 Outpatient KENYA CARRION [facility] 431 [id number] 13:10:05 13:43:01 Lauri o n 2023-01-04 2023-01-04 Travel 1.2.840.1 1.2.354.264 2800 [id number] Univers 00:00:00 00:00:00 45317.1.1 350.1.13.41 ity of 3.412.2.7 [place]7.3.698 [place] .3.773253 084.8 .8 [facility] 2023-01-04 2023-01-04 Travel 1.2.840.1 1.2.889.273 2930 [id number] Univers 00:00:00 00:00:00 34636.1.1 350.1.13.41 ity of 3.412.2.7 [place].7.3.698 [place] .3.028340 084.8 .8 [facility] 2023-01-01 2023-01-01 Infusion KYLAH Hdez, 1.2.840.1 [id number] Univers 09:00:00 14:20:57 Lorena 60823.1.1 ity of [place] 3.412.2.7 [place] .3.105127 MD Soares8 [facility] 2023-01-01 2023-01-01 Infusion Lemuel, 1.2.840.1 [id number] 76414 [id number] Univers 09:00:00 14:20:57 Lorena 76739.1.1 ity of [place] 3.412.2.7 [place] .3.167627 MD Soares8 [facility] 2023-01-01 2023-01-01 Outpatient KENYA CARRION [facility] [id number] 13:31:26 14:06:59 Lauri [facility] 2023-01-01 2023-01-01 Follow-Up KYLAH Power, 1.2.840.1 [id number] Univers 08:40:00 09:31:03 Celyne 11815.1.1 ity of 3.412.2.7 [place] .3.189208 MD [facility] 2023-01-01 2023-01-01 Follow-Up Kenny Power, 1.2.840.1 [id number] Univers 08:40:00 09:31:03 Celyne 07929.1.1 ity of 3.412.2.7 [place] .3.626135 MD [facility] 2023-01-01 2023-01-01 Outpatient KYLAH HDEZ, TAO MDA [id number] 08:19:22 08:27:50 LORENA Ruelas [facility] 2023-01-01 2023-01-01 Rohith Guardado 1.2.840.1 [id number] Univers 00:00:00 00:00:00 Brittni A 03203.1.1 ity of 3.412.2.7 [place] .3.512138 MD [facility] 2023-01-01 2023-01-01 Travel 1.2.840.1 1.2.918.648 4871 [id number] Univers 00:00:00 00:00:00 28650.1.1 350.1.13.41 ity of 3.412.2.7 [place].7.3.698 [place]3.557327 08Dannielle.Lilly [facility] 2023-01-01 2023-01-01 Rohith Guardado 1.2.840.1 [id number] Univers 00:00:00 00:00:00 Brittni A 00039.1.1 ity of 3.412.2.7 [place] .3.834634 MD [facility] 2023-01-01 2023-01-01 Travel 1.2.840.1 1.2.393.282 0720 [id number] Univers 00:00:00 00:00:00 42757.1.1 350.1.13.41 ity of 3.412.2.7 2.2.7.3.698 [place] .3.878526 084.8 MD [facility] 2022-12-31 2022-12-31 Telephone Carnlul, 1.2.840.1 [id number] 1103 [id number] Univers 00:00:00 00:00:00 Tita Mayorga 63991.1.1 ity of 3.412.2.7 [place] .3.243337 MD Soares8 [facility] 2022-12-31 2022-12-31 Orders Hdez, 1.2.840.1 [id number] Univers 00:00:00 00:00:00 Only Lorena 43505.1.1 ity of Kay[place] 3.412.2.7 [place] .3.009617 MD [facility] 2022-12-31 2022-12-31 Telephone Carnlul, 1.2.840.1 [id number] 1103 [id number] Univers 00:00:00 00:00:00 Tita Mayorga 33931.1.1 ity of 3.412.2.7 [place] .3.249060 MD [facility] 2022-12-31 2022-12-31 Anabell Hdez, 1.2.840.1 [id number] Univers 00:00:00 00:00:00 Only Lorena 93348.1.1 ity of Kayla 3.412.2.7 [place] .3.003386 MD [facility] 2022-12-30 2022-12-30 [facility], 1.2.840.1 [id number] Univers 09:33:09 23:59:00 Encounter Miguel Fernandez 24937.1.1 ity of 3.412.2.7 [place] .3.215664 MD [facility] 2022-12-30 2022-12-30 [facility], 1.2.840.1 [id number] Univers 09:33:09 23:59:00 Encounter Miguel Fernandez 20669.1.1 ity of 3.412.2.7 [place] .3.462954 MD [facility] 2022-12-30 2022-12-30 Outpatient MANUEL CARRIONLEY [facility] [id number] 13:48:18 14:15:54 Lauri sheryl 2022-12-30 2022-12-30 Travel 1.2.840.1 1.2.232.719 8094 [id number] Univers 00:00:00 00:00:00 23378.1.1 350.1.13.41 ity of 3.412.2.7 [place].7.3.698 [place] .3.052996 084.8 .8 [facility] 2022-12-30 2022-12-30 Travel 1.2.840.1 1.2.998.629 0124 [id number] Univers 00:00:00 00:00:00 44928.1.1 350.1.13.41 ity of 3.412.2.7 2.2.7.3.698 [place] .3.036827 084.8 .8 [facility] 2022-12-29 2022-12-29 [facility], 1.2.840.1 [id number] Univers 08:00:00 23:59:00 Encounter Suzanne 80164.1.1 it y of 3.412.2.7 [place] .3.539493 MD Soares8 [facility] 2022-12-29 2022-12-29 [facility], 1.2.840.1 [id number] Univers 08:00:00 23:59:00 Encounter Suzanne 51184.1.1 it y of 3.412.2.7 [place] .3.268709 MD Soares8 [facility] 2022-12-29 2022-12-29 Outpatient MANUEL CARRIONLEY [facility] [id number] 13:04:30 13:32:42 Lauri sheryl 2022-12-29 2022-12-29 Travel 1.2.840.1 1.2.868.944 1478 [id number] Univers 00:00:00 00:00:00 11958.1.1 350.1.13.41 ity of 3.412.2.7 2.[place].7.3.698 [place] .3.814428 084.8 MD [facility] 2022-12-29 2022-12-29 Travel 1.2.840.1 1.2.846.633 9944 [id number] Univers 00:00:00 00:00:00 81681.1.1 350.1.13.41 ity of 3.412.2.7 2.2.7.3.698 [place] .3.210527 084.8 MD [facility] 2022-12-28 2022-12-28 Clinical [facility], 1.2.840.1 [id number] [id number] Univers 14:00:00 15:17:09 Support Winter 39614.1.1 ity of [place] 3.412.2.7 [place] .3.449694 MD [facility] 2022-12-28 2022-12-28 [facility], 1.2.840.1 [id number] [id number] Univers 14:00:00 15:17:09 Support Winter 21198.1.1 ity of [place] 3.412.2.7 [place] .3.378002 MD [facility] 2022-12-28 2022-12-28 Outpatient KENYA CARRION MDA [facility] [id number] 13:27:37 14:08:09 [facility] 2022-12-28 2022-12-28 Nutrition Kenya Carrion. 1.2.840.1 [id number] Univers 10:00:00 10:53:45 Lian Jaramillo 40328.1.1 ity of 3.412.2.7 [place] .3.761643 MD [facility] 2022-12-28 2022-12-28 Nutrition Kenya Agarwal. 1.2.840.1 [id number] Univers 10:00:00 10:53:45 Lian Jaramillo 73801.1.1 ity of 3.412.2.7 [place] .3.913697 MD Soares8 [facility] 2022-12-28 2022-12-28 Travel 1.2.840.1 1.2.619.897 7435 [id number] Univers 00:00:00 00:00:00 17592.1.1 350.1.13.41 ity of 3.412.2.7 2.2.7.3.698 [place] .3.997287 084.8 MD Soares8 [facility] 2022-12-28 2022-12-28 Travel 1.2.840.1 1.2.363.192 8453 [id number] [facility] 00:00:00 00:00:00 30584.1.1 350.1.13.41 ity of 3.412.2.7 2.2.7.3.698 [place] .3.294154 084.8 MD [facility] 2022-12-25 2022-12-25 Outpatient KENYA CARRION [facility] [id number] 14:06:37 15:08:07 [facility] 2022-12-25 2022-12-25 Travel 1.2.840.1 1.2.419.940 4321 [id number] [facility] 00:00:00 00:00:00 68331.1.1 350.1.13.41 ity of 3.412.2.7 2.2.7.3.698 [place] .3.257722 084.8 MD [facility] 2022-12-25 2022-12-25 Travel 1.2.840.1 1.2.904.902 8738 [id number] Univers 00:00:00 00:00:00 14780.1.1 350.1.13.41 ity of 3.412.2.7 2.2.7.3.698 [place] .3.555575 084.8 MD [facility] 2022-12-24 2022-12-24 Infusion KYLAH Hdez 1.2.840.1 [id number] [facility] 08:45:00 15:46:35 Lorena 20708.1.1 ity of Kayla 3.412.2.7 [place] .3.112511 MD [facility]8 [facility] 2022-12-24 2022-12-24 Dwayne Lemuel, 1.2.840.1 [id number] [facility] 08:45:00 15:46:35 Lorena 48660.1.1 ity of Kayla 3.412.2.7 [place] .3.403292 .8 [facility] 2022-12-24 2022-12-24 Outpatient KYLAH AGARWALKENYA MDA MDA [id number] 13:51:59 14:40:52 Lauri olivier 2022-12-24 2022-12-24 Follow-Up KYLAH Power, 1.2.840.1 [id number] Univers 08:20:00 10:15:28 Celarturo 36212.1.1 ity of 3.412.2.7 [place] .3.625937 .8 [facility] 2022-12-24 2022-12-24 Follow-Up Kenny Power, 1.2.840.1 [id number] Univers 08:20:00 10:15:28 Celyne 63773.1.1 ity of 3.412.2.7 [place] .3.834513 MD [facility] 2022-12-24 Outpatient KYLAH HDEZ MDA MDA [id number] 09:15:48 09:27:18 LORENA olivier 2022-12-24 2022-12-24 Rohith Sheriff [facility] 1.2.840.114 [id number] Univers 00:00:00 00:00:00 [employer] 350.1.13.10 it y of [place] 4.2.7.2.686 Frankie as JAVIER?BLEA [phone] [address] MEDICAL OFFICE [facility]ILDING 2022-12-24 2022-12-24 Telephone Jonathan, 1.2.840.1 [id number] [id number] Univers 00:00:00 00:00:00 Felisa Costa 52007.1.1 ity of 3.412.2.7 [place] .3.768429 MD [facility] 2022-12-24 2022-12-24 Telephone Kenya Agarwal 1.2.840.1 [id number] Univers 00:00:00 00:00:00 Y. 20530.1.1 ity of 3.412.2.7 [place] .3.345808 MD Soares8 [facility] 2022-12-24 2022-12-24 Telephone Doyle, 1.2.840.1 [id number] 1103 [id number] Univers 00:00:00 00:00:00 Tita LRodger 05435.1.1 ity of 3.412.2.7 [place] .3.767112 MD Soares8 [facility] 2022-12-24 2022-12-24 Telephone Carnlul, 1.2.840.1 [id number] [id number] Univers 00:00:00 00:00:00 Tita Mayorga 42836.1.1 ity of 3.412.2.7 [place] .3.225560 MD [facility] 2022-12-24 2022-12-24 Telephone Kenny Power, 1.2.840.1 [id number] Univers 00:00:00 00:00:00 Celyne 64379.1.1 ity of 3.412.2.7 [place] .3.641611 MD [facility] 2022-12-24 2022-12-24 Travel 1.2.840.1 1.2.655.937 6044 [id number] Univers 00:00:00 00:00:00 69229.1.1 350.1.13.41 ity of 3.412.2.7 2.2.7.3.698 [place] .3.718692 084.8 MD [facility] 2022-12-24 2022-12-24 Orders Kenny Power, 1.2.840.1 [id number] Univers 00:00:00 00:00:00 Only Celyne 75186.1.1 ity of 3.412.2.7 [place] .3.775686 MD [facility] 2022-12-24 2022-12-24 Telephone Carnew, 1.2.840.1 [id number] 1103 [id number] Univers 00:00:00 00:00:00 Tita Mayorga 54763.1.1 ity of 3.412.2.7 [place] .3.210936 MD [facility] 2022-12-24 2022-12-24 Telephone Carnew, 1.2.840.1 [id number] [id number] Univers 00:00:00 00:00:00 Tita Mayorga 70487.1.1 ity of 3.412.2.7 [place] .3.239613 MD [facility] 2022-12-24 2022-12-24 Telephone Kenny Power, 1.2.840.1 [id number] Univers 00:00:00 00:00:00 Vaibhav 67333.1.1 ity of 3.412.2.7 [place] .3.872863 MD [facility] 2022-12-24 2022-12-24 Travel 1.2.840.1 1.2.748.406 6021 [id number] Univers 00:00:00 00:00:00 74357.1.1 350.1.13.41 ity of 3.412.2.7 2.2.7.3.698 [place] .3.770256 084.8 MD [facility] 2022-12-24 2022-12-24 Orders Kenny Power, 1.2.840.1 [id number] Univers 00:00:00 00:00:00 Only Vaibhav 09588.1.1 ity of 3.412.2.7 [place] .3.059561 MD [facility] 2022-12-24 2022-12-24 Telephone Castillo, 1.2.840.1 [id number] 1103 [id number] Univers 00:00:00 00:00:00 Felisa M 49846.1.1 ity of 3.412.2.7 [place] .3.116279 MD Soares8 [facility] 2022-12-24 2022-12-24 Telephone Kenya Agarwal 1.2.840.1 [id number] Univers 00:00:00 00:00:00 Y. 05555.1.1 ity of 3.412.2.7 [place] .3.912546 .8 [facility] 2022-12-23 2022-12-23 [facility], 1.2.840.1 [id number] Univers 09:30:00 23:59:00 Encounter Otilia 89006.1.1 it y of 3.412.2.7 [place] .3.145133 MD Soares8 [facility] 2022-12-23 2022-12-23 [facility], 1.2.840.1 [id number] Univers 09:30:00 23:59:00 Encounter Otilia 07493.1.1 it y of 3.412.2.7 [place] .3.854743 MD Soares8 [facility] 2022-12-23 2022-12-23 Outpatient EL KENYA AGARWAL [facility] [id number] 13:50:34 14:48:40 [facility] 2022-12-23 2022-12-23 Clinical EL Winter Luu 1.2.840.1 [id number] Univers 10:15:00 10:30:00 Support Dony Calhoun 31303.1.1 ity of 3.412.2.7 [place] .3.584735 MD [facility] 2022-12-23 2022-12-23 Clinical Winter Luu 1.2.840.4 [id number] Univers 10:15:00 10:30:00 Support Dony Calhoun 11037.1.1 ity of 3.412.2.7 [place] .3.399325 MD Soares8 [facility] 2022-12-23 2022-12-23 Documentat Luu, 1.2.840.1 [id number] Univers 00:00:00 00:00:00 jennifer Irelanden 04984.1.1 ity of G[place] 3.412.2.7 [place] .3.806482 MD [facility] 2022-12-23 2022-12-23 Telephone Kenny Power, 1.2.840.1 [id number] Univers 00:00:00 00:00:00 Vaibhav 98459.1.1 ity of 3.412.2.7 [place] .3.658893 MD [facility] 2022-12-23 2022-12-23 Telephone Carnlul, 1.2.840.1 [id number] [id number] Univers 00:00:00 00:00:00 Tita Mayorga 61653.1.1 ity of 3.412.2.7 [place] .3.167004 MD [facility] 2022-12-23 2022-12-23 Travel 1.2.840.1 1.2.838.316 3386 [id number] Univers 00:00:00 00:00:00 95360.1.1 350.1.13.41 ity of 3.412.2.7 2.2.7.3.698 [place] .3.091394 084.8 MD [facility] 2022-12-23 2022-12-23 Orders Hdez, 1.2.840.1 [id number] Univers 00:00:00 00:00:00 Only Lorena 09846.1.1 ity of [place] 3.412.2.7 [place] .3.140603 MD [facility] 2022-12-23 2022-12-23 Documentat Luu, 1.2.840.1 [id number] [id number] Univers 00:00:00 00:00:00 jennifer Irelanden 54830.1.1 ity of [place] 3.412.2.7 [place] .3.507492 MD [facility] 2022-12-23 2022-12-23 Telephone Kenny Monteiroe, 1.2.840.1 [id number] Univers 00:00:00 00:00:00 Celarturo 88498.1.1 ity of 3.412.2.7 [place] .3.079307 MD Soares8 [facility] 2022-12-23 2022-12-23 Telephone Carnlul, 1.2.840.1 [id number] [id number] Univers 00:00:00 00:00:00 Tita Mayorga 83052.1.1 ity of 3.412.2.7 [place] .3.777097 MD Soares8 [facility] 2022-12-23 2022-12-23 Travel 1.2.840.1 1.2.268.714 7165 [id number] Univers 00:00:00 00:00:00 98051.1.1 350.1.13.41 ity of 3.412.2.7 2.2.7.3.698 [place] .3.101251 084.8 MD Soares8 [facility] 2022-12-23 2022-12-23 Orders Hdez, 1.2.840.1 [id number] Univers 00:00:00 00:00:00 Only Lorena 44823.1.1 ity of [place] 3.412.2.7 [place] .3.981001 MD [facility] 2022-12-18 2022-12-18 Orders Lan, 1.2.840.1 [id number] Univers 00:00:00 00:00:00 Only Lindy 06976.1.1 ity of [place] 3.412.2.7 [place] .3.045587 MD [facility] 2022-12-18 2022-12-18 Orders Lan, 1.2.840.1 [id number] Univers 00:00:00 00:00:00 Only Lindy 63587.1.1 ity of [place] 3.412.2.7 [place] .3.338781 MD Soares8 [facility] 2022-12-18 2022-12-18 Orders Lan, 1.2.840.1 [id number] Univers 00:00:00 00:00:00 Only Lindy 98674.1.1 ity of [place] 3.412.2.7 [place] .3.419466 MD Soares8 [facility] 2022-12-18 2022-12-18 Orders Lan, 1.2.840.1 [id number] Univers 00:00:00 00:00:00 Only Lindy 53118.1.1 ity of [place] 3.412.2.7 [place] .3.522509 MD Soares8 [facility] 2022-12-17 2022-12-17 Clinical Kenya Carrion 1.2.840.1 [id number] Univers 08:00:00 10:48:06 Support Maria Luz Cochran 83006.1.1 ity of 3.412.2.7 [place] .3.546872 MD Saores8 [facility] 2022-12-17 2022-12-17 Clinical Kenya Agarwal 1.2.840.1 [id number] Univers 08:00:00 10:48:06 Support Maria Luz Cochran 95872.1.1 ity of 3.412.2.7 [place] .3.638308 MD Soares8 [facility] 2022-12-17 2022-12-17 Outpatient EL CECIL, [facility] MDA [id number] MD 08:37:01 10:43:17 WINTER olivier 2022-12-17 2022-12-17 Documentat Luu, 1.2.840.1 [id number] Univers 00:00:00 00:00:00 ion Winter 25480.1.1 ity of G[place] 3.412.2.7 [place] .3.853446 MD Soares8 [facility] 2022-12-17 2022-12-17 Documentat Luu, 1.2.840.1 [id number] Univers 00:00:00 00:00:00 ion Winter 47664.1.1 ity of [place] 3.412.2.7 [place] .3.592083 MD [facility] 2022-12-17 2022-12-17 Documentat Lamar, 1.2.840.1 [id number] Univers 00:00:00 00:00:00 ion Winter 49893.1.1 ity of [place] 3.412.2.7 [place] .3.812614 MD [facility] 2022-12-17 2022-12-17 [facility], 1.2.840.1 [id number] Univers 00:00:00 00:00:00 Only Lorena 83428.1.1 ity of [place] 3.412.2.7 [place] .3.761119 MD [facility] 2022-12-17 2022-12-17 Travel 1.2.840.1 1.2.340.050 2019 [id number] Univers 00:00:00 00:00:00 82067.1.1 350.1.13.41 ity of 3.412.2.7 2.[place]7.3.698 [place] .3.190016 084.8 MD [facility] 2022-12-17 2022-12-17 [facility], 1.2.840.1 [id number] Univers 00:00:00 00:00:00 Only Winter 82195.1.1 ity of [place] 3.412.2.7 [place] .3.122010 MD [facility] 2022-12-17 2022-12-17 [facility], 1.2.840.1 [id number] Univers 00:00:00 00:00:00 ion Winter 35552.1.1 ity of [place] 3.412.2.7 [place] .3.089344 MD [facility] 2022-12-17 2022-12-17 [facility], 1.2.840.1 [id number] Univers 00:00:00 00:00:00 ion Winter 48242.1.1 ity of [place] 3.412.2.7 [place] .3.909058 MD [facility] 2022-12-17 2022-12-17 Documentat Luu, 1.2.840.1 [id number] Univers 00:00:00 00:00:00 ion Winter 25052.1.1 ity of Gini 3.412.2.7 [place] .3.627453 MD [facility] 2022-12-17 2022-12-17 Orders [facility], 1.2.840.1 [id number] Univers 00:00:00 00:00:00 Only Lorena 70586.1.1 ity of Kayla 3.412.2.7 [place] .3.026894 MD [facility] 2022-12-17 2022-12-17 Travel 1.2.840.1 1.2.129.273 [id number] Univers 00:00:00 00:00:00 61564.1.1 350.1.13.41 ity of 3.412.2.7 [place].3.698 [place] .3.661064 084.8 MD [facility] 2022-12-17 2022-12-17 [facility], 1.2.840.1 [id number] Univers 00:00:00 00:00:00 Only Winter 15454.1.1 ity of Gini 3.412.2.7 [place] .3.184731 MD [facility] 2022-12-16 2022-12-16 [facility], 1.2.840.1 [id number] Univers 00:00:00 00:00:00 Only Winter 90596.1.1 ity of Gini 3.412.2.7 [place] .3.295234 MD [facility] 2022-12-16 2022-12-16 Gala Castillo, 1.2.840.1 [id number] Univers 00:00:00 00:00:00 Felisa Costa 44014.1.1 ity of 3.412.2.7 [place] .3.831977 MD [facility] 2022-12-16 2022-12-16 Telephone Rosmery Dickinson 1.2.840.1 [id number] Univers 00:00:00 00:00:00 M 48784.1.1 ity of 3.412.2.7 [place] .3.032563 .8 [facility] 2022-12-16 2022-12-16 Orders Luu, 1.2.840.1 [id number] Univers 00:00:00 00:00:00 Only Winter 87962.1.1 ity of Gini 3.412.2.7 [place] .3.333914 MD Soares8 [facility] 2022-12-16 2022-12-16 Telephone Castillo, 1.2.840.1 [id number] Univers 00:00:00 00:00:00 Felisa Costa 28343.1.1 ity of 3.412.2.7 [place] .3.024588 MD Soares8 [facility] 2022-12-16 2022-12-16 Telephone DickinsonRosmery perkins 1.2.840.1 [id number] Univers 00:00:00 00:00:00 M 11408.1.1 ity of 3.412.2.7 [place] .3.738206 MD Soares8 [facility] 2022-12-15 2022-12-15 [facility] Kenya Agarwal 1.2.840.1 [id number] Univers 08:42:55 23:59:00 Encounter Y. 08096.1.1 it y of 3.412.2.7 [place] .3.133537 .8 [facility] 2022-12-15 2022-12-15 [facility] Kenya Agarwal 1.2.840.1 [id number] Univers 08:42:55 23:59:00 Encounter Y. 42537.1.1 it y of 3.412.2.7 [place] .3.117875 MD Soares8 [facility] 2022-12-09 2022-12-15 Hospital Mer Conklin 1.2.840.1 [id number] Univers 21:01:00 19:30:00 Encounter Roberto Carlos Walsh 63171.1.1 ity of Regulo, Abelino-Izzy 3.412.2.7 Graciela Rivas .3.619691 Jaycee Muñoz .8 Travis Hebert, Derrick Cancer Ordaz, Cerena Ce [facility] 2022-12-09 2022-12-15 [facility] Mer Milian 1.2.840.1 [id number] Univers 21:01:00 19:30:00 Encounter Roberto Carlos Walsh 12701.1.1 ity of Regulo, Abelino-Izzy 3.412.2.7 [facility] Graciela .3.996208 Jaycee Muoñz .8 Travis Hebert, [facility] 2022-12-15 2022-12-15 Outpatient KYLAH BAI MDA MDA [id number] 08:39:37 15:02:22 RON olivier 2022-12-15 2022-12-15 Inpatient KYLAH DAVISTAO MDA [id number] 09:34:01 10:58:12 FAREED olivier 2022-12-15 2022-12-15 Rohith Montenegro, 1.2.840.1 [id number] Univers 00:00:00 00:00:00 Lindy 82459.1.1 ity of [place]leigh 3.412.2.7 [place] .3.808736 .8 [facility] 2022-12-15 2022-12-15 Orders Rosario 1.2.840.1 [id number] Univers 00:00:00 00:00:00 Only sourav, 79498.1.1 ity of [place] 3.412.2.7 [place] .3.834632 .8 [facility] 2022-12-15 2022-12-15 Orders Koyyalagunt 1.2.840.1 [id number] Univers 00:00:00 00:00:00 Only a, 95798.1.1 ity [place] .3.641706 MD Soares8 [facility] 2022-12-15 2022-12-15 Orders Shaziai, 1.2.840.1 [id number] 1102 [id number] Univers 00:00:00 00:00:00 Only Maya 68332.1.1 ity of 3.412.2.7 [place] .3.357910 MD [facility]8 [facility] 2022-12-15 2022-12-15 Ophth Exam Reggienelycarlos, 1.2.840.1 [id number] 1 [id number] Univers 00:00:00 00:00:00 Maya 89579.1.1 ity of 3.412.2.7 [place] .3.413106 MD [facility]8 [facility] 2022-12-15 2022-12-15 Refmaddie Montenegro, 1.2.840.1 [id number] Univers 00:00:00 00:00:00 Lindy 65688.1.1 ity of [place] 3.412.2.7 [place] .3.186363 MD [facility]8 [facility] 2022-12-15 2022-12-15 Orders Koyyalagunt 1.2.840.1 [id number] 11 [id number] Univers 00:00:00 00:00:00 Only a, 33165.1.1 ity of [place]2.7 [place] .3.291259 MD Soares8 [facility] 2022-12-15 2022-12-15 Orders Koyyalagunt 1.2.840.1 [id number] 11 [id number] Univers 00:00:00 00:00:00 Only a, 20509.1.1 ity of [place].7 [place] .3.932348 MD Soares8 [facility] 2022-12-15 2022-12-15 Orders Razmandi, 1.2.840.1 [id number] 1102 [id number] Univers 00:00:00 00:00:00 Only Maya 26578.1.1 ity of 3.412.2.7 [place] .3.203377 MD Soares8 [facility] 2022-12-15 2022-12-15 Ophth Exam Razmandi, 1.2.840.1 [id number] 1 [id number] Univers 00:00:00 00:00:00 Maya 37476.1.1 ity of 3.412.2.7 [place] .3.149250 MD Soares8 [facility] 2022-12-14 2022-12-14 Inpatient KYLAH MANUEL AGARWALLEY [facility] [id number] 17:21:25 17:21:31 [facility] 2022-12-14 2022-12-14 Orders Martínez, 1.2.840.1 [id number] Univers 00:00:00 00:00:00 Only Wilder 31378.1.1 ity of 3.412.2.7 [place] .3.066980 MD [facility]8 [facility] 2022-12-14 2022-12-14 Orders Martínez, 1.2.840.1 [id number] Univers 00:00:00 00:00:00 Only Wilder 08502.1.1 ity of 3.412.2.7 [place] .3.342877 MD [facility]8 [facility] 2022-12-11 2022-12-11 Inpatient KENYA CARRION [facility] [id number] 11:49:45 11:49:48 [facility] 2022-12-11 2022-12-11 Telephone Jason 1.2.840.1 [id number] 1102 [id number] Univers 00:00:00 00:00:00 Maridel P 75043.1.1 it y of 3.412.2.7 [place] .3.500260 MD [facility]8 [facility] 2022-12-11 2022-12-11 Telephone Jason, 1.2.840.1 [id number] 1102 [id number] Univers 00:00:00 00:00:00 Triston Ayo 43093.1.1 it y of 3.412.2.7 [place] .3.626669 MD [facility] 2022-12-10 2022-12-10 Travel 1.2.840.1 1.2.162.538 1038 [id number] Univers 00:00:00 00:00:00 91321.1.1 350.1.13.41 ity of 3.412.2.7 2.[place].7.3.698 [place] .3.457292 084.8 MD [facility] 2022-12-10 2022-12-10 Anabell Soliz, 1.2.840.1 [id number] Univers 00:00:00 00:00:00 Only Wilder 53778.1.1 ity of 3.412.2.7 [place] .3.865788 MD [facility] 2022-12-10 2022-12-10 Travel 1.2.840.1 1.2.462.118 6224 [id number] Univers 00:00:00 00:00:00 15587.1.1 350.1.13.41 ity of 3.412.2.7 2.2.7.3.698 [place] .3.036029 084.Lilly [facility] 2022-12-10 2022-12-10 Anabell Soliz, 1.2.840.1 [id number] Univers 00:00:00 00:00:00 Only Wilder 01654.1.1 ity of 3.412.2.7 [place] .3.418556 MD [facility] 2022-12-08 2022-12-08 Gala Montenegro, 1.2.840.1 [id number] [id number] Univers 00:00:00 00:00:00 Lindy 69868.1.1 ity of [place] 3.412.2.7 [place] .3.813427 MD [facility] 2022-12-08 2022-12-08 Orders Hdez, 1.2.840.1 [id number] Univers 00:00:00 00:00:00 Only Lorena 90728.1.1 ity of Kayla 3.412.2.7 [place] .3.093749 MD [facility]8 [facility] 2022-12-08 2022-12-08 Telephone [place], 1.2.840.1 [id number] 104 [id number] Univers 00:00:00 00:00:00 Lindy 24159.1.1 ity of [place] 3.412.2.7 [place] .3.836429 MD [facility]8 [facility] 2022-12-08 2022-12-08 Orders Hdez, 1.2.840.1 [id number] Univers 00:00:00 00:00:00 Only Lorena 06643.1.1 ity of Kayla 3.412.2.7 [place] .3.695211 MD [facility]8 [facility] 2022-12-05 2022-12-05 Telephone Lamar, 1.2.840.1 [id number] 1102 [id number] Univers 00:00:00 00:00:00 Winter 24333.1.1 ity of Gini 3.412.2.7 [place] .3.533876 MD Soares8 [facility] 2022-12-05 2022-12-05 [facility], 1.2.840.1 [id number] Univers 00:00:00 00:00:00 Only Winter 85003.1.1 ity of G[place] 3.412.2.7 [place] .3.269774 MD Soares8 [facility] 2022-12-05 2022-12-05 Telephone Lamar, 1.2.840.1 [id number] 1102 [id number] Univers 00:00:00 00:00:00 Winter 44408.1.1 ity of G[place] 3.412.2.7 [place] .3.696655 MD Soares8 [facility] 2022-12-05 2022-12-05 [facility], 1.2.840.1 [id number] Univers 00:00:00 00:00:00 Only Winter 32220.1.1 ity of [place] 3.412.2.7 [place] .3.790507 MD So[facility]8 [facility] 2022-12-04 2022-12-04 [facility] Matthew Choe 1.2.840 .1 [id number] Univers 10:55:00 23:59:00 Encounter Lorena Hdez 73779.1.1 ity of 3.412.2.7 [place] .3.330751 MD Soares8 [facility] 2022-12-04 2022-12-04 [facility] 1.2.840 .1 [id number] Univers 10:55:00 23:59:00 Encounter Lorena Hdez 69028.1.1 ity of 3.412.2.7 [place] .3.084309 MD So[facility]8 [facility] 2022-12-04 2022-12-04 Telephone Antonella 1.2.840.1 [id number] 11 [id number] Univers 00:00:00 00:00:00 Red Costa 99465.1.1 it y of 3.412.2.7 [place] .3.779504 MD [facility] 2022-12-04 2022-12-04 Multidisci Antonella, 1.2.840.1 [id number] 1 [id number] Univers 00:00:00 00:00:00 plinary Red [place] 17324.1.1 it y of Visit 3.412.2.7 [place] .3.668545 MD [facility]8 [facility] 2022-12-04 2022-12-04 Telephone Dimas 1.2.840.1 [id number] 11 [id number] Univers 00:00:00 00:00:00 Maria Luz Lund 10633.1.1 ity of 3.412.2.7 [place] .3.738600 MD [facility]8 [facility] 2022-12-04 2022-12-04 Telephone Antonella, 1.2.840.1 [id number] 11 [id number] Univers 00:00:00 00:00:00 Red Costa 77302.1.1 it y of 3.412.2.7 [place] .3.113212 MD So[facility]8 [facility] 2022-12-04 2022-12-04 Multidisci Antonella, 1.2.840.1 [id number] 1 [id number] Univers 00:00:00 00:00:00 plinary [place] 92226.1.1 it y of Visit 3.412.2.7 [place] .3.333749 MD [facility]8 [facility] 2022-12-04 2022-12-04 Gala Cochran, 1.2.840.1 [id number] 11 [id number] Univers 00:00:00 00:00:00 Maria Luz Lund 29990.1.1 ity of 3.412.2.7 [place] .3.533461 MD [facility]8 [facility] 2022-12-02 2022-12-02 Anabell Montenegro, 1.2.840.1 [id number] Univers 00:00:00 00:00:00 Only Lindy 49809.1.1 ity of [place] 3.412.2.7 [place] .3.896461 MD [facility]8 [facility] 2022-12-02 2022-12-02 Anabell Luu 1.2.840.1 [id number] Univers 00:00:00 00:00:00 Only Winter 07836.1.1 ity of Gini 3.412.2.7 [place] .3.202739 MD So[facility]8 [facility] 2022-12-02 2022-12-02 Anabell Montenegro 1.2.840.1 [id number] [id number] Univers 00:00:00 00:00:00 Only Lindy 31094.1.1 ity of [place] 3.412.2.7 [place] .3.744488 MD [facility]8 [facility] 2022-12-02 2022-12-02 Anabell Luu 1.2.840.1 [id number] Univers 00:00:00 00:00:00 Only Winter 21325.1.1 ity of [place]ini 3.412.2.7 [place] .3.754424 MD [facility] 2022-11-30 2022-11-30 Ancillary KYLAH Hdez, 1.2.840.1 [id number] 1102 [id number] Univers 08:15:00 10:00:00 Procedure Lorena 61537.1.1 i ty of Kayla 3.412.2.7 [place] .3.249041 MD [facility] 2022-11-30 2022-11-30 Ancillary Hdez, 1.2.840.1 [id number] 1102 [id number] Univers 08:15:00 10:00:00 Procedure Lorena 76145.1.1 i ty of Kayla 3.412.2.7 [place] .3.766809 MD [facility] 2022-11-30 2022-11-30 Travel 1.2.840.1 1.2.411.508 5949 [id number] Univers 00:00:00 00:00:00 24651.1.1 350.1.13.41 ity of 3.412.2.7 2.2.7.3.698 [place] .3.345129 084.8 MD [facility] 2022-11-30 2022-11-30 Travel 1.2.840.1 1.2.839.741 7052 306236 Univers 00:00:00 00:00:00 79444.1.1 350.1.13.41 ity of 3.412.2.7 2.2.7.3.698 [place] .3.327250 084.8 MD [facility] 2022-11-27 2022-11-27 Ancillary KYLAH Montenegro, 1.2.840.1 [id number] [id number] Univers 12:00:00 14:30:00 Procedure Lindy 50832.1.1 it y of [place] 3.412.2.7 [place] .3.836581 MD [facility] 2022-11-27 2022-11-27 Ancillary Lan, 1.2.840.1 [id number] [id number] [facility] 12:00:00 14:30:00 Procedure Lindy 25938.1.1 it y of [place] 3.412.2.7 [place] .3.966613 MD Soaers8 [facility] 2022-11-27 2022-11-27 Travel 1.2.840.1 1.2.040.821 7790 [id number] Univers 00:00:00 00:00:00 32797.1.1 350.1.13.41 ity of 3.412.2.7 2.2.7.3.698 [place] .3.534302 084.8 MD Soares8 [facility] 2022-11-27 2022-11-27 Travel 1.2.840.1 1.2.098.727 9674 [id number] Univers 00:00:00 00:00:00 36957.1.1 350.1.13.41 ity of 3.412.2.7 2.2.7.3.698 [place] .3.785782 084.8 MD [facility] 2022-11-26 2022-11-26 Office JAYESH Myers 1.2.840.114 [id number] [facility] 14:30:00 15:00:00 Visit Tracey AMBULATOR 350.1.13.21 College Y 0.2.7.2.686 of 847.0571675 Medi patsy 810 e 2022-11-26 2022-11-26 Outpatient KYLAH HDEZ MDA MDA [id number] 13:07:20 13:20:48 LORENA suarez n 2022-11-26 2022-11-26 Consult KYLAH Power, 1.2.840.1 [id number] 11 [id number] Univers 11:00:00 13:02:56 Celarturo 54281.1.1 ity of 3.412.2.7 [place] .3.869336 MD [facility]8 [facility] 2022-11-26 2022-11-26 Consult Kenny Power, 1.2.840.1 [id number] 11 [id number] Univers 11:00:00 13:02:56 Celyne 11619.1.1 ity of 3.412.2.7 [place] .3.740088 MD [facility] 2022-11-26 2022-11-26 Consult [facility], 1.2.840.1 [id number] Univers 10:00:00 11:43:01 Winter 38290.1.1 ity of Gini 3.412.2.7 [place] .3.408519 MD [facility] 2022-11-26 2022-11-26 Consult Lamar, 1.2.840.1 [id number] Univers 10:00:00 11:43:01 Winter 02651.1.1 ity of Gini 3.412.2.7 [place] .3.607085 MD [facility] 2022-11-26 2022-11-26 Travel 1.2.840.1 1.2.758.594 6715 [id number] Univers 00:00:00 00:00:00 61987.1.1 350.1.13.41 ity of 3.412.2.7 2.2.7.3.698 [place] .3.181039 084.8 MD [facility] 2022-11-26 2022-11-26 Travel 1.2.840.1 1.2.823.148 5714 [id number] Univers 00:00:00 00:00:00 63542.1.1 350.1.13.41 ity of 3.412.2.7 2.2.7.3.698 [place] .3.642848 084.8 MD [facility] 2022-11-24 2022-11-24 Lab David Nunez 1.2.840.1 [id number] Univers 00:00:00 00:00:00 Alexa Cantrell 54748.1.1 i ty of n 3.412.2.7 [place] .3.061039 MD [facility] 2022-11-24 2022-11-24 Lab David Nunez 1.2.840.1 [id number] Univers 00:00:00 00:00:00 Panchitojoycesheryl Alexa Alvarez 63400.1.1 i ty of n 3.412.2.7 [place] .3.393809 MD [facility] 2022-11-23 2022-11-23 Telephone Jeffy, 1.2.840.1 [id number] 1101 [id number] Univers 00:00:00 00:00:00 Macaela T 91375.1.1 it y of 3.412.2.7 [place] .3.591107 MD [facility]8 [facility] 2022-11-23 2022-11-23 Telephone Jeffy, 1.2.840.1 [id number] 1101 [id number] Univers 00:00:00 00:00:00 Macareal T 99537.1.1 it y of 3.412.2.7 [place] .3.982366 MD [facility] 2022-11-22 2022-11-22 Orders Olivier, 1.2.840.1 [id number] Univers 00:00:00 00:00:00 Only Berkley 67086.1.1 ity of 3.412.2.7 [place] .3.155420 MD [facility] 2022-11-22 2022-11-22 Orders Olivier, 1.2.840.1 [id number] Univers 00:00:00 00:00:00 Only Berkley 38858.1.1 ity of 3.412.2.7 [place] .3.088436 MD [facility] 2022-11-20 2022-11-20 Telephone Mateusz 1.2.840.1 [id number] 1101 [id number] Univers 00:00:00 00:00:00 Elana 96545.1.1 ity of 3.412.2.7 [place] .3Rodger613878 MD [facility] 2022-11-20 2022-11-20 Telephone Mateusz 1.2.840.1 [id number] 1101 [id number] Univers 00:00:00 00:00:00 Elana 04165.1.1 ity of 3.412.2.7 [place] .3Rodger599750 MD [facility] 2022-11-18 2022-11-18 Refill Doctor [facility] 1.2.840.114 [id number] Univers 00:00:00 00:00:00 Unassigned, HEALTH 350.1.13.10 ity of [place] CLARA 4.2.7.2.686 Frankie as JAVIER?BLEA [phone] [address] OFFICE [facility] 2022-11-18 2022-11-18 Telephone Jaziel, [facility] 1.2.040.335 5517 2755 Univers 00:00:00 00:00:00 Nereida HEALTH 350.1.13.10 it y of [place] 4.2.7.2.686 Frankie as JAVIER?BLEA [id number] [address] OFFICE [facility] 2022-11-17 2022-11-17 Outpatient KYLAH POSADA MDA [facility] [id number] 11:49:34 15:08:37 RED olivier 2022-11-17 2022-11-17 Office Kenya Carrion 1.2.840.1 [id number] 11 [id number] Univers 09:15:00 11:44:36 Visit Y. 01635.1.1 ity of 3.412.2.7 [place] .3.382954 [facility] 2022-11-17 2022-11-17 Office Kenya Agarwal 1.2.840.1 [id number] 11 [id number] Univers 09:15:00 11:44:36 Visit Y. 92708.1.1 ity of 3.412.2.7 [place] .3Rodger224918 MD [facility] 2022-11-17 2022-11-17 NPR Kenya Carrion 1.2.840.1 [id number] 11 [id number] Univers 08:45:00 09:16:44 Y. 16389.1.1 ity of 3.412.2.7 [place] .3Rodger629365 MD [facility] 2022-11-17 2022-11-17 NPR Kenya Agarwal 1.2.840.1 [id number] 11 [id number] Univers 08:45:00 09:16:44 Y. 54805.1.1 ity of 3.412.2.7 [place] .3.566366 MD [facility] 2022-11-17 2022-11-17 Telephone Jaziel [facility] 1.2.262.005 2830 6046 Univers 00:00:00 00:00:00 PostPath 350.1.13.10 it y of [place] 4.2.7.2.686 Frankie as JAVIER?BLEA [phone] Ut maujessica [address] MEDICAL OFFICE BUILDING 2022-11-17 2022-11-17 Travel 1.2.840.1 1.2.858.230 2508 401503 Univers 00:00:00 00:00:00 01400.1.1 350.1.13.41 ity of 3.412.2.7 2.2.7.3.698 [place] .3.054635 084.8 MD [facility] 2022-11-17 2022-11-17 Travel 1.2.840.1 1.2.866.927 1756 279301 Univers 00:00:00 00:00:00 81709.1.1 350.1.13.41 ity of 3.412.2.7 2.2.7.3.698 [place] .3.320212 084.8 MD [facility] 2022-11-16 2022-11-16 Orders McAchen, 1.2.840.1 [id number] 1101 [id number] Univers 00:00:00 00:00:00 Only Red [place] 03326.1.1 it y of 3.412.2.7 [place] .3.494015 MD [facility] 2022-11-16 2022-11-16 Orders Antonella, 1.2.840.1 [id number] 1101 [id number] Univers 00:00:00 00:00:00 Only Red [place] 97991.1.1 it y of 3.412.2.7 [place] .3.932826 MD Soares8 [facility] 2022-11-13 2022-11-13 [facility] 1.2.174.017 0368 7693 Univers 00:00:00 00:00:00 PostPath 350.1.13.10 it y of [place] 4.2.7.2.686 Frankie as JAVIER?BLEA [phone] [address] MEDICAL OFFICE BUILDING 2022-11-12 2022-11-12 Anabell Honeycutt 1.2.840.1 [id number] 1101 [id number] Univers 00:00:00 00:00:00 Only Chloe Alejandre 68799.1.1 it y of 3.412.2.7 [place] .3.266219 MD Soares8 [facility] 2022-11-12 2022-11-12 Orders Antonella 1.2.840.1 [id number] 1101 [id number] Univers 00:00:00 00:00:00 Only Red [place] 87648.1.1 it y of 3.412.2.7 [place] .3.782722 MD Soares8 [facility] 2022-11-12 2022-11-12 Anabell Honeycutt 1.2.840.1 [id number] 1101 [id number] Univers 00:00:00 00:00:00 Only Chloe Pili 52145.1.1 it y of 3.412.2.7 [place] .3.950544 MD Soares8 [facility] 2022-11-12 2022-11-12 Anabell Posada 1.2.840.1 [id number] 1101 [id number] Univers 00:00:00 00:00:00 Only Red [place] 39207.1.1 it y of 3.412.2.7 [place] .3.173721 MD Soares8 [facility] 2022-11-07 2022-11-07 Rohith [facility] 1.2.840.114 [id number] Univers 00:00:00 00:00:00 PostPath 350.1.13.10 it y of [place] 4.2.7.2.686 Frankie as JAVIER?BLEA 023.5035100 Ut mary [address] MEDICAL OFFICE [facility] 2022-11-03 2022-11-03 [facility] 1.2.840.114 [id number] Univers 00:00:00 00:00:00 [place] HEALTH 350.1.13.10 it y of [place] 4.2.7.2.686 Frankie as JAVIER?BLEA [phone] Ut mary [address] OFFICE [facility] 2022-11-03 2022-11-03 [facility] 1.2.840.114 [id number] Univers 00:00:00 00:00:00 [facility] HEALTH 350.1.13.10 it y of Edward [place] 4.2.7.2.686 Frankie as JAVIER?BLEA [phone] [address] OFFICE [facility] 2022-10-21 2022-10-21 Office [facility] 1.2.840.114 [id number] Univers 09:30:00 09:45:00 Visit [facility] 350.1.13.10 it y of [place] 4.2.7.2.686 Frankie as JAVIER?BLEA [phone] [address] OFFICE [facility] 2022-10-21 2022-10-21 Outpatient [id number] Univers 09:30:00 09:24:24 NEREIDA henri [facility] 2022-10-01 2022-10-01 Refmaddie [facility] 1.2.840.114 [id number] Univers 00:00:00 00:00:00 [facility] 350.1.13.10 it y of [place] 4.2.7.2.686 Frankie as JAVIER?BLEA [phone] [address] OFFICE [facility] 2022-09-21 2022-09-21 Outpatient Mars[facility] [id number] 005 Univers 10:00:00 10:00:00 NEREIDA henri [facility] 2022-09-21 2022-09-21 Radiation Oncology Nurse Lab, Ang - Len [facility] 1.2.840.1 14 [id number] Univers 10:00:00 10:00:00 Visit Jaziel [facility] 350.1.13.10 ity of [place] 4.2.7.2.686 Frankie as JAVIER?BLEA [phone] Ut mary GOEL [address] MEDICAL OFFICE [facility] 2022-09-21 2022-09-21 Office [facility] 1.2.840.114 [id number] Univers 09:45:00 10:00:00 Visit [facility] 350.1.13.10 it y of [place] 4.2.7.2.686 Frankie as JAVIER?BLEA [id number] Ut mary GOEL [address] [facility] OFFICE [facility] 2022-09-18 2022-09-18 Refmaddie [facility] 1.2.840.114 [id number] Univers 00:00:00 00:00:00 [place] HEALTH 350.1.13.10 it y of [place] 4.2.7.2.686 Frankie as JAVIER?BLEA [phone] Ut mary GOEL [address] [place] [address] OFFICE [facility] 2022-09-17 2022-09-17 Refmaddie [facility] 1.2.840.114 [id number] Univers 00:00:00 00:00:00 Nereida HEALTH 350.1.13.10 it y of [place] 4.2.7.2.686 Frankie as JAVIER?BLEA [phone] Ut mary GOEL [address] [place] [address] OFFICE [facility] 2022-09-07 2022-09-07 [facility] 1.2.840.114 [id number] Univers 00:00:00 00:00:00 Nereida HEALTH 350.1.13.10 it y of [place] 4.2.7.2.686 Frankie as JAVIER?BLEA [phone] Ut mary GOEL [address] [place] [address] OFFICE [facility] 2022-09-03 2022-09-03 Refmaddie [facility] 1.2.840.114 [id number] Univers 00:00:00 00:00:00 Nereida HEALTH 350.1.13.10 it y of [place] 4.2.7.2.686 Frankie as JAVIER?BLEA [phone] Me mary GOEL [address] [place] [address] OFFICE [facility] 2022-09-03 2022-09-03 [facility] 1.2.840.114 [id number] Univers 00:00:00 00:00:00 Nereida HEALTH 350.1.13.10 it y of [place] 4.2.7.2.686 Frankie as JAVIER?BLEA [phone] Ut dicjessica MARINOEY 044 [facility] OFFICE [facility] 2022-08-31 2022-08-31 Office JAYESH OLSEN 1.2.840.[id number] [place] [address] 13:14:07 15:10:18 Visit [facility] [facility] 350.1.13.21 College Y 0.2.7.2.686 of [id number] [facility] 810 e 2022-08-28 2022-08-28 Outpatient R JO [facility] [id number] Univers 08:05:50 23:59:00 BLANCHE ity of [facility] 2022-08-28 2022-08-28 [facility] 1.2.840.114 [id number] Univers 08:05:50 23:59:00 Encounter Blanche LEE 350.1.13.10 ity of [facility] [place]7.2.[place] [id number] [address] 2022-08-28 2022-08-28 Radiation Oncology Nurse Royal, Jenniffer Lab Main [facility] 1.2.8 40.114 [id number] Univers 08:15:00 08:30:00 Visit Blanche Osorio 350.1.13.10 ity of [facility] [place]2.7.2.[place] [phone] Ut mary [facility] 353 [facility] 2022-08-28 2022-08-28 Telephone [facility] 1.2.062.810 [id number] Univers 00:00:00 00:00:00 Blanche HEALTH 350.1.13.10 it y of [place] 4.2.7.2.686 Frankie as JAVIER?BLEA [phone] Ut dicjessica GOEL [address] [place] MEDICAL OFFICE [facility] 2022-08-26 2022-08-26 Outpatient R JO [facility] [id number] Univers 00:00:00 00:00:00 BLANCHE pierre [facility] 2022-08-25 2022-08-25 Outpatient R GLENSourav [facility] [id number] Univers 10:00:00 11:23:37 BLANCHE pierre [facility] 2022-08-25 2022-08-25 Office Glensourav [facility] 1.2.840.114 [id number] Univers 10:00:00 11:23:37 Visit Blanche [facility] 350.1.13.10 it y of [place] 4.2.7.2.686 Frankie as JAVIER?BLEA [id number] [address] OFFICE [facility] 2022-08-24 2022-08-24 Telephone Jo [facility] 1.2.929.675 [id number] Univers 00:00:00 00:00:00 Blanche HEALTH 350.1.13.10 it y of [place] 4.2.7.2.686 Frankie as JAVIER?BLEA [phone] [address] MEDICAL OFFICE [facility] 2022-08-21 2022-08-21 [facility]ill [facility] 1.2.840.114 [id number] Univers 00:00:00 00:00:00 Nereida HEALTH 350.1.13.10 it y of [place] 4.2.7.2.686 Frankie as JAVIER?BLEA [phone] [address] OFFICE [facility] 2022-08-18 2022-08-18 Refmaddie [facility] 1.2.840.114 [id number] Univers 00:00:00 00:00:00 Nereida HEALTH 350.1.13.10 it y of [place] 4.2.7.2.686 Frankie as JAVIER?BLEA [phone] [address] OFFICE [facility] 2022-08-11 2022-08-11 Office JAYESH RAI 1.2.840.114 [id number] [facility] 15:06:02 15:06:02 Visit [facility] AMBULATOR 350.1.13.21 College Y 0.2.7.2.686 of [id number] [facility] 800 e 2022-08-06 2022-08-06 Rohith [facility] 1.2.840.114 [id number] Univers 00:00:00 00:00:00 Nereida HEALTH 350.1.13.10 it y of [place] 4.2.7.2.686 Frankie as JAVIER?BLEA [phone] Ut mary GOEL [address] [place] [address] OFFICE [facility] 2022-08-05 2022-08-05 Rohiht [facility] 1.2.840.114 [id number] Univers 00:00:00 00:00:00 Nereida HEALTH 350.1.13.10 it y of [place] 4.2.7.2.686 Frankie as JAVIER?BLEA [phone] Ut mary GOEL [address] [place] [address] OFFICE [facility] 2022-07-30 2022-07-30 Rohith [facility] 1.2.840.114 [id number] Univers 00:00:00 00:00:00 Nereida HEALTH 350.1.13.10 it y of [place] 4.2.7.2.686 Frankie as JAVIER?BLEA [phone] [address] 2022-07-28 2022-07-28 [facility] [facility] [id number] [address] 11:11:47 23:59:00 Encounter [facility] 2022-07-28 2022-07-28 Outpatient ELLE AnnetteRodger [facility] [id number] SLE 11:11:47 23:59:00 2022-07-28 2022-07-[address] [facility] [id number] 11:11:47 23:59:00 Encounter [facility] 2022-07-26 2022-07-26 [facility] 1.2.840.114 [id number] Univers 00:00:00 00:00:00 [facility] 350.1.13.10 it y of [place] 4.2.7.2.686 Frankie as JAVIER?BLEA [phone] Ut mary GOEL [address] [place] [address] OFFICE [facility] 2022-07-21 2022-07-21 Rohith [facility] 1.2.840.114 [id number] Univers 00:00:00 00:00:00 [facility] 350.1.13.10 it y of [place] 4.2.7.2.686 Frankie as JAVIER?BLEA [id number] [address] 2022-07-19 2022-07-19 Rohith [facility] 1.2.840.114 [id number] Univers 00:00:00 00:00:00 [facility] HEALTH 350.1.13.10 it y of [place] 4.2.7.2.686 Frankie as JAVIER?BLEA [id number] [address] 2022-07-09 2022-07-09 [facility] 1.2.840.114 [id number] 47 Univers 00:00:00 00:00:00 [facility] 350.1.13.10 it y of [place] 4.2.7.2.686 Frankie as JAVIER?BLEA [phone] [address] 2022-07-08 2022-07-08 Outpatient Angelica MATHIS [facility] [id number] [facility] 11:43:31 12:15:51 Anton Medicin e 2022-07-08 2022-07-[address] [facility] [id number] 00:00:00 00:00:00 Orders [facility] 2022-07-08 2022-07-[address] [facility] [id number] 00:00:00 00:00:00 Orders [facility] 2022-07-04 2022-07-04 [facility] 1.2.840.114 [id number] Univers 00:00:00 00:00:00 [facility] 350.1.13.10 it y of [place] 4.2.7.2.686 Frankie as JAVIER?BLEA [id number] [address] 2022-06-30 2022-06-30 Rohith [facility] 1.2.840.114 [id number] 74 Univers 00:00:00 00:00:00 [facility] 350.1.13.10 it y of [place] 4.2.7.2.686 Frankie as JAVIER?BLEA [id number] [address] MEDICAL OFFICE [facility] 2022-06-23 2022-06-23 Outpatient Marsha CALERO [facility] [id number] Univers 09:00:00 09:00:00 [place] henri [facility] 2022-06-21 2022-06-21 Rohith [facility] 1.2.840.114 [id number] Univers 00:00:00 00:00:00 [facility] 350.1.13.10 it y of [place] 4.2.7.2.686 Frankie as JAVIER?BLEA [id number] [address] OFFICE [facility] 2022-06-17 2022-06-17 Outpatient Marsha SHERIFF [facility] [id number] Univers 10:00:00 10:00:00 [facility] 2022-06-16 2022-06-16 Office JAYESH WISE 1.2.840.114 [id number] [facility] 07:46:52 10:29:18 Visit DEWAYEN AMBULATOR 350.1.13.21 College Y 0.2.7.2.686 of [id number] [facility] 325 e 2022-06-08 2022-06-08 Rhoith [facility] 1.2.840.114 [id number] 29 Univers 00:00:00 00:00:00 [facility] 350.1.13.10 it y of [place] 4.2.7.2.686 Frankie as JAVIER?BLEA [id number] [address] MEDICAL OFFICE [facility] 2022-06-08 2022-06-08 Rohith [facility] 1.2.840.114 [id number] 38 Univers 00:00:00 00:00:00 [facility] 350.1.13.10 it y of [place] 4.2.7.2.686 Frankie as JAVIER?BLEA [phone] [address] OFFICE [facility] 2022-06-03 2022-06-03 [facility] 1.2.840.114 [id number] Univers 00:00:00 00:00:00 [facility] 350.1.13.10 it y of [place] 4.2.7.2.686 Frankie as JAVIER?BLEA [id number] [address] OFFICE [facility] 2022-06-03 2022-06-03 [facility] 1.2.840.114 [id number] 74 Univers 00:00:00 00:00:00 [facility] 350.1.13.10 it y of [place] 4.2.7.2.686 Frankie as JAVIER?BLEA [id number] [address] OFFICE [facility] 2022-05-17 2022-05-17 [facility] 1.2.840.114 [id number] Univers 00:00:00 00:00:00 [facility] 350.1.13.10 it y of [place] 4.2.7.2.686 Frankie as JAVIER?BLEA [id number] [address] 2022-05-11 2022-05-11 [facility] 1.2.840.114 [id number] 92 Univers 00:00:00 00:00:00 [place] [facility] 350.1.13.10 it y of [place] 4.2.7.2.686 Frankie as JAVIER?BLEA [phone] [address] 2022-04-08 2022-04-08 Outpatient Aguilamarsha_M VFP VFP [id number] 45-20 Village 00:00:00 00:00:00 [id number] Family Practic e 2022-04-08 2022-04-08 [facility] 1.2.840.114 [id number] 57 Univers 00:00:00 00:00:00 [place] [facility] 350.1.13.10 it y of [place] 4.2.7.2.686 Frankie as JAVIER?BLEA [id number] [address] OFFICE [facility] 2022-03-31 2022-03-31 Rohith YoungersMINERS' [facility] 1.2.840.114 [id number] Univers 00:00:00 00:00:00 [facility] 350.1.13.10 it y of [place] 4.2.7.2.686 Frankie as JAVIER?BLEA [id number] [address] MEDICAL OFFICE [facility] 2022-03-18 2022-03-18 Outpatient [facility] [id number] Univers 09:30:00 09:45:06 NEREIDA henri [facility] 2022-03-18 2022-03-18 Office [facility] 1.2.840.114 [id number] Univers 09:30:00 09:45:00 Visit [facility] 350.1.13.10 it y of [place] 4.2.7.2.686 Frankie as JAVIER?BLEA [id number] [address] OFFICE [facility] 2022-03-18 2022-03-18 Outpatient Marsha SHERIFF [facility] [id number] Univers 09:30:00 09:30:00 NEREIDA henri [facility] 2022 2022 [facility] 1.2.840.114 [id number] Univers 00:00:00 00:00:00 [facility] 350.1.13.10 it y of [place] 4.2.7.2.686 Frankie as JAVIER?BLEA [id number] [address] MEDICAL OFFICE [facility] 2022-03-13 2022-03-13 Rohith [facility] 1.2.840.114 [id number] 69 Univers 00:00:00 00:00:00 [facility] 350.1.13.10 it y of [place] 4.2.7.2.686 Frankie as JAVIER?BLEA [id number] [address] MEDICAL OFFICE [facility] 2022-03-11 2022-03-11 Rohith [facility] 1.2.840.114 [id number] 61 Univers 00:00:00 00:00:00 [facility] 350.1.13.10 it y of [place] 4.2.7.2.686 Frankie as JAVIER?BLEA [phone] Ut mary GOEL [address] [place] [address] OFFICE [facility] 2022-03-09 2022-03-09 Andimaddie [facility] 1.2.840.114 [id number] 96 Univers 00:00:00 00:00:00 [facility] 350.1.13.10 it y of [place] 4.2.7.2.686 Frankie as JAVIER?BLEA [phone] [facility] AN[address] OFFICE [facility] 2022-03-05 2022-03-05 [facility] 1.2.840.114 [id number] 96 Univers 00:00:00 00:00:00 [facility] 350.1.13.10 it y of [place] 4.2.7.2.686 Frankie as JAVIER?BLEA [phone] Ut mau[address] 2022-03-02 2022-03-02 [facility] 1.2.840.114 [id number] 53 Univers 00:00:00 00:00:00 [facility] 350.1.13.10 it y of [place] 4.2.7.2.686 Frankie as JAVIER?BLEA [id number] [address] OFFICE [facility] 2022-03-02 2022-03-02 [facility] 1.2.840.114 [id number] 70 Univers 00:00:00 00:00:00 [facility] 350.1.13.10 it y of [place] 4.2.7.2.686 Frnakie as JAVIER?BLEA [phone] [address] OFFICE [facility] 2022-02-05 2022-02-05 Osakis [facility] 1.2.934.667 [id number] Univers 00:00:00 00:00:00 [facility] 350.1.13.10 it y of [place] 4.2.7.2.686 Frankie as JAVIER?BLEA [phone] [address] OFFICE [facility] 2022-01-30 2022-01-30 Rohith [facility] 1.2.840.114 [id number] 48 Univers 00:00:00 00:00:00 [facility] 350.1.13.10 it y of [place] 4.2.7.2.686 Frankie as PROFESSIO [phone] [facility] 044 [facility] ONE 2022-01-25 2022-01-25 Emergency X [facility] [id number] Univers 12:57:00 16:23:00 JACQUELIN ithenri of [facility] 2022-01-25 2022-01-25 Emergency [facility] 1.2.833.824 [id number] Univers 12:57:00 16:23:00 Jacquelin LEE 350.1.13.10 ity of [facility] 4.2.7.2.686 [place] [facility] [phone] [address] 2022-01-22 2022-01-22 Outpatient Aguipeterson_M VFP VFP [address] [place] [address] 08:43:00 08:43:00 [id number] Family Practic e 2022-01-14 2022-01-14 Rohith [facility] 1.2.840.114 [id number] Univers 00:00:00 00:00:00 [facility] 350.1.13.10 it y of [place] 4.2.7.2.686 Frankie as PROFESSIO [id number] Ut dicoh NAL 044 [facility] ONE 2022-01-09 2022-01-09 Outpatient [facility] [id number] [facility] 15:12:14 15:12:14 DEWAYNE Colleg e of Medicin e 2022-01-09 2022-01-09 Outpatient [facility] [id number] [facility] 15:10:12 15:10:12 DEWAYNE Colleg e of Medicin e 2022-01-09 2022-01-09 [facility] [id number] [facility] 07:39:00 14:08:00 Encounter Dewayne [facility] 2022-01-09 2022-01-09 Outpatient [facility] Surgery [id number] [facility] 07:39:00 14:08:00 DEWAYNE 2022-01-09 2022-01-[address] [facility] [id number] 11:08:00 12:56:00 Event India Keating [facility] 2022-01-09 2022-01-09 Surgery Billie, [facility] [id number] 11:30:00 12:50:00 Dewayne Stanley [facility] 2022-01-09 2022-01-09 Travel [facility] [id number] [facility] 00:00:00 00:00:00 [facility] 2022-01-08 2022-01-08 Outpatient EL [facility] SLE [id number] [facility] 12:18:15 23:59:00 2022-01-08 2022-01-08 [facility] [id number] 11:55:00 23:59:[address] [facility] 2022-01-08 2022-01-08 Travel [facility] [id number] [facility] 00:00:00 00:00:00 [facility] 2021-12-18 2021-12-18 Office [facility] 1.2.840.114 [id number] Univers 15:45:00 16:15:00 Visit [facility] 350.1.13.10 it y [facility] 4.2.7.2.686 Frankie as JAVIER?BLEA [id number] [address] MEDICAL OFFICE BUILDING 2021-12-18 2021-12-18 Outpatient Marsha CALERO [facility] [id number] Univers 15:45:00 15:45:00 [facility] 2021-12-18 2021-12-18 Outpatient Marsha CALERO [facility] [id number] Univers 15:45:00 15:45:00 [facility] 2021-12-16 2021-12-16 Outpatient Marsha CALERO [facility] [id number] Univers 16:00:00 16:00:00 [facility] 2021-12-16 2021-12-16 Orders Doctor ESPINOZA 1.2.840.114 [id number] Univers 00:00:00 00:00:00 Only Unassigned, STEVE 350.1.13.10 ity of [place] [facility] 4.2.7.2.686 Frankie as [id number] [address] 2021-12-15 2021-12-15 [facility] 1.2.840.114 [id number] 20 Univers 00:00:00 00:00:00 [facility] 350.1.13.10 it y of [place] 4.2.7.2.686 Frankie as PROFESSIO [id number] [address] OFFICE BUILDING ONE 2021-12-08 2021-12-08 Refmaddie [facility] 1.2.840.114 [id number] 48 Univers 00:00:00 00:00:00 [facility] 350.1.13.10 it y of [place] 4.2.7.2.686 Frankie as JAVIER?BLEA [id number] [address] OFFICE [facility] 2021-12-04 2021-12-04 [facility] [id number] 08:54:00 10:51:00 Encounter [facility] 2021-12-04 2021-12-04 Outpatient [facility] Surgery [id number] SLE 08:54:00 10:51:00 [facility] 2021-12-04 2021-12-04 Surgery [facility] [id number] 09:00:00 10:30:00 [facility] 2021-11-19 2021-11-19 Osakis [facility] 1.2.254.531 [id number] Univers 00:00:00 00:00:00 [facility] 350.1.13.10 it y of [place] 4.2.7.2.686 Frankie as JAVIER?BLEA [id number] [address] OFFICE BUILDING 2021-11-15 2021-11-15 Refmaddie [facility] 1.2.840.114 [id number] Univers 00:00:00 00:00:00 [facility] 350.1.13.10 it y of [place] 4.2.7.2.686 Frankie as PROFESSIO [phone] [facility] PINA [address] [place] [address] OFFICE BUILDING ONE 2021-11-06 2021-11-06 Office JAYESH WISE 1.2.840.114 [id number] [facility] 13:24:51 16:22:30 Visit DEWAYNE AMBULATOR 350.1.13.21 College Y 0.2.7.2.686 of [id number] Medi patsy 325 e 2021-11-06 2021-11-06 Refmaddie Sheriff [facility] 1.2.840.114 [id number] 13 Univers 00:00:00 00:00:00 [facility] 350.1.13.10 it y of [place] 4.2.7.2.686 Frankie as JAVIER?BLEA [id number] Ut maujessica MARINOALEXIS [address] [place] [address] OFFICE BUILDING 2021-11-01 2021-11-01 Outpatient Aguilar_M VFP VFP [id number] [facility]20 [facility] 02:58:00 02:58:00 [id number] Family Practic e 2021-10-27 2021-10-27 Rohith Sheriff [facility] 1.2.840.114 [id number] Univers 00:00:00 00:00:00 [facility] 350.1.13.10 it y of [place] 4.2.7.2.686 Frankie as PROFESSIO [phone] [facility] NAL [address] [place] [address] OFFICE [facility] ONE 2021-10-16 2021-10-16 Rohith Sheriff [facility] 1.2.840.114 [id number] 07 Univers 00:00:00 00:00:00 [facility] 350.1.13.10 it y of [place] 4.2.7.2.686 Frankie as PROFESSIO [id number] [address] OFFICE BUILDING ONE 2021-10-11 2021-10-11 Outpatient Aguilar_M VFP VFP [id number] [facility] 06:17:00 06:17:00 [id number] Family Practic e 2021-10-07 2021-10-07 Rohith Sheriff [facility] 1.2.840.114 [id number] 32 Univers 00:00:00 00:00:00 [place] [facility] 350.1.13.10 it y of [place] 4.2.7.2.686 Frankie as JAVIER?BLEA [id number] Ut mary MARINO 044 [facility] OFFICE [facility] 2021-10-03 2021-10-03 Outpatient rEi VFP VFP [id number] [facility] 05:34:00 05:34:00 [id number] Family Practic e 2021-09-29 2021-09-29 Rhoith C[facility]linMINERS[facility] 1.2.398.137 [id number] Univers 00:00:00 00:00:00 [facility] 350.1.13.10 it y of SURGICAL 4.2.7.2.686 Frankie as SPECIALTI [phone] Ut mary [address] 2021-09-18 2021-09-18 Outpatient Marsha [facility] [id number] Univers 10:15:00 10:15:00 [facility] 2021-09-18 2021-09-18 Office SheriffShip[facility] 1.2.840.114 [id number] Univers 08:40:07 08:55:07 Visit [facility] 350.1.13.10 [facility] 4.2.7.2.686 Frankie as JAVIER?BLEA [id number] [address] OFFICE [facility] 2021-09-18 2021-09-18 Outpatient Marsha [facility] [id number] Univers 10:15:00 08:52:38 NEREIDA henri [facility] 2021-09-08 2021-09-08 Refmaddie [facility]MIN[facility] 1.2.840.114 [id number] Univers 00:00:00 00:00:00 [place] [facility] 350.1.13.10 it y of [place] 4.2.7.2.686 Frankie as JAVIER?BLEA [phone] Ut dicjessica [address] OFFICE [facility] 2021-09-04 2021-09-04 [facility] 1.2.840.114 [id number] 02 Univers 00:00:00 00:00:00 [facility] 350.1.13.10 it y of [place] 4.2.7.2.686 Frankie as PROFESSIO [phone] Ut dicoh NAL [address] [place] [address] OFFICE BUILDING ONE 2021-08-28 2021-08-28 [facility] 1.2.840.114 [id number] 80 Univers 00:00:00 00:00:00 [facility] 350.1.13.10 it y of [place] 4.2.7.2.686 Frankie as PROFESSIO [phone] Ut dicoh NAL [address] [place] [address] OFFICE BUILDING ONE 2021-08-22 2021-08-22 [facility] 1.2.840.114 [id number] Univers 00:00:00 00:00:00 [facility] 350.1.13.10 it y of [place] 4.2.7.2.686 Frankie as Professio [phone] [facility] nal [address] [place] [address] Office [facility] One 2021-08-21 2021-08-21 Yousuf FrandyjoanaNapoleon [facility] [id number] [facility] 00:00:00 00:00:00 [facility] [id number] Family [facility] - Pract brando MD: [address] [facility], [place] [address] , Ph. 2021-08-20 2021-08-20 Outpatient Lm_Marsha [facility] [id number] 45-20 [facility] 04:30:00 04:30:00 [id number] [facility] 2021-08-20 2021-08-20 Osakis [facility] 1.2.037.788 [id number] Univers 00:00:00 00:00:00 [facility] 350.1.13.10 it y of [place] 4.2.7.2.686 Frankie as Javier?Blea [phone] Ut dicjessica kney 044 [facility] 2021-08-07 2021-08-07 Refmaddie SheriffMIN[facility] 1.2.840.114 [id number] 59 Univers 00:00:00 00:00:00 [facility] 350.1.13.10 it y of [place] 4.2.7.2.686 Frankie as Javier?Blea [phone] Ut mary goel [address] [place] [address] Office [facility] 2021-07-14 2021-07-14 Rohith [facility] 1.2.840.114 [id number] Univers 00:00:00 00:00:00 [facility] 350.1.13.10 it y of [place] 4.2.7.2.686 Frankie as Javier?Blea [phone] Ut mary goel [address] [place] [address] 2021-07-11 2021-07-11 Imm/Inj Nurse, Adc Pob Immunization [facility] 1.2.840.114 [id number] Univers 10:44:02 10:44:14 Visit Miguel Patel 350.1.13 .10 ity of [place] 4.2.7.2.686 [place] Professio [phone] [address] 2021-07-11 2021-07-11 Outpatient R IRAIS [facility] [id number] Univers 10:30:00 10:30:00 MIGUEL pierre [facility] 2021-07-10 2021-07-10 Rohith [facility] 1.2.840.114 [id number] 97 Univers 00:00:00 00:00:00 [facility] 350.1.13.10 it y of [place] 4.2.7.2.686 Frankie as Javier?Blea [phone] Ut mauoh antonio[address] 2021-06-29 2021-06-29 Rohith [facility] 1.2.840.114 [id number] 70 Univers 00:00:00 00:00:00 [facility] 350.1.13.10 it y of [place] 4.2.7.2.686 Frankie as Professio [phone] [address] One 2021-06-24 2021-06-24 Rohith [facility] 1.2.840.114 [id number] 16 Univers 00:00:00 00:00:00 [facility] 350.1.13.10 it y of [place] 4.2.7.2.686 Frankie as Professio [phone] Me dical nal [address] [place] Office [facility] One 2021-06-10 2021-06-10 Refmaddie Sheriff [facility] 1.2.840.114 [id number] 93 Univers 00:00:00 00:00:00 [facility] 350.1.13.10 it y of [place] 4.2.7.2.686 Frankie as Professio [phone] [facility] nal [address] [place] [address] One 2021-06-09 2021-06-09 Refmaddie [facility] 1.2.840.114 [id number] 28 Univers 00:00:00 00:00:00 [facility] 350.1.13.10 it y of [place] 4.2.7.2.686 Frankie as Professio [phone] [facility] nal [address] [place] [address] One 2021-06-09 2021-06-09 Refmaddie [facility]MIN[facility] 1.2.840.114 [id number] 44 Univers 00:00:00 00:00:00 [facility] 350.1.13.10 it y of [place] 4.2.7.2.686 Frankie as Professio [phone] Ut dical nal [address] [place] [address] One 2021-06-01 2021-06-01 Refmaddie SheriffMIN[facility] 1.2.840.114 [id number] 21 Univers 00:00:00 00:00:00 [facility] 350.1.13.10 it y of [place] 4.2.7.2.686 Frankie as Professio [phone] [facility] [address] [place] [address] One 2021-05-15 2021-05-15 Patient Nabil [facility] 1.2.840.114 [id number] 82 Univers 00:00:00 00:00:00 Outreach Jaimee Chain 350.1.13.10 i ty of [place] 4.2.7.2.686 Frankie as Professio [phone] Ut dical nal [address] [place] [address] Office [facility] One 2021-05-14 2021-05-14 Nurse Cbc, Medicare Wellness Ang [facility] B 1.2.840.114 [id number] Univers 09:04:42 10:32:18 Visit Jaziel [facility] 350.1.13.10 ity of [place] 4.2.7.2.686 Frankie as Professio [phone] [address] Office [facility] One 2021-05-14 2021-05-14 Office [facility] 1.2.840.114 [id number] Univers 08:58:25 09:13:25 Visit [facility] 350.1.13.10 it y of [place] 4.2.7.2.686 Frankie as Professio [phone] [address] Office [facility] 2021-05-14 2021-05-14 [id number] Univers 09:00:00 09:00:00 NEREIDA pierre [facility] 2021-05-12 2021-05-12 [facility] 1.2.840.114 [id number] Univers 00:00:00 00:00:00 [facility] [id number] it y of [place] [id number] [place] as Professio [phone] [address] One 2021-04-30 2021-04-30 Outpatient R [facility] [id number] Univers 13:15:00 13:15:00 DUSTIN pierre [facility] 2021-04-23 2021-04-23 [facility] [id number] Univers 00:00:00 00:00:00 NEREIDA pierre [facility] 2021-04-14 2021-04-14 [facility] 1.2.840.114 [id number] Univers 00:00:00 00:00:00 [facility] [id number] it y of [place] [id number] [place] as Professio [phone] [address] Office [facility] 2021-04-03 2021-04-03 Hammad Chaney 1.2.840.114 [id number] Univers 00:00:00 00:00:00 Management , Mary Draper [id number] ity [place]7.2.[place] [phone] [address] 2021-03-26 2021-03-26 Rohith Sheriff, [facility] 1.2.840.114 [id number] 00:00:00 00:00:00 [facility] 350.1.13.10 [place] 4.2.7.2.686 Professio [phone] [place] [address] Office [facility] 2021-03-26 2021-03-26 [facility] 1.2.840.114 [id number] Univers 00:00:00 00:00:00 [facility] [id number] it y of [place] [id number] [place] as Professio [phone] [address] 2021-03-25 2021-03-25 [facility] 1.2.840.114 [id number] 00:00:00 00:00:00 [facility] [id number] [place] [id number] Professio [phone] [address] 2021-03-25 2021-03-25 [facility] 1.2.840.114 [id number] Univers 00:00:00 00:00:00 [facility] [id number] it y of [place] [id number] [place] as Professio [phone] [address] 2021-03-18 2021-03-18 [facility]ala [facility] [id number] Univers 00:00:00 00:00:00 Nereida Lee 350.1.13.10 i ty [place] 4[place]2.7.2.[place] [phone] [address] 2021-03-18 2021-03-18 [facility]ala [facility] 1.2.253.881 [id number] 00:00:00 00:00:00 Nereida Lee 350.1.13.10 [place] 4.2.7.2.686 Professio [phone] [address] 2021-03-13 2021-03-13 Gala [facility] 1.2.682.117 [id number] Univers 00:00:00 00:00:00 [facility] 350.1.13.10 it y of [place] 4.2.7.2.686 Frankie as Professio [phone] [address] Office [facility] One 2021-03-13 2021-03-13 Gala [facility] 1.2.623.047 [id number] 00:00:00 00:00:00 [facility] 350.1.13.10 [place] 4.2.7.2.686 Professio [phone] [place] [address] Office Building One 2021-03-10 2021-03-10 Outpatient Marsha BRAND [facility] [id number] Univers 12:00:00 12:00:00 AMANDA pierre [facility] 2021-03-10 2021-03-10 Urgent Provider, [facility] 1.2.840.114 [id number] Univers 11:16:36 11:36:36 [facility] 350.1.13.10 ity of [place] 4.2.7.2.686 Frankie as Professio [phone] [address] Office [facility] One 2021-03-10 2021-03-10 Rohith [facility] 1.2.840.114 [id number] Univers 00:00:00 00:00:00 [facility] 350.1.13.10 it y of [place] 4.2.7.2.686 Frankie as Professio [phone] [address] Office Building One 2021-02-25 2021-02-25 Gala [facility] 1.2.026.184 [id number] Univers 00:00:00 00:00:00 [facility] 350.1.13.10 it y of [place] 4.2.7.2.686 Frankie as Professio [phone] [address] Office Building One 2021-02-20 2021-02-20 Rohith [facility] 1.2.840.114 [id number] Univers 00:00:00 00:00:00 [facility] 350.1.13.10 it y of [place] 4.2.7.2.686 Frankie as Professio [phone] [address] Office Building One 2021-02-12 2021-02-12 Office Jaziel [facility] 1.2.840.114 [id number] Univers 09:00:39 09:22:35 Visit [facility] 350.1.13.10 it y of [place] 4.2.7.2.686 Frankie as Professio [phone] [address] Office Building One 2021-02-12 2021-02-12 Outpatient R JAZIEL [facility] [id number] Univers 09:00:00 09:00:00 NEREIDA ithenri [facility] 2021-02-12 2021-02-12 Orders Doctor OLGA 1.2.840.114 [id number] Univers 00:00:00 00:00:00 Only Unassigned, STEVE 350.1.13.10 ity of [place] [facility] 4.2.7.2.686 Frankie as [phone] [address] 2021-02-10 2021-02-10 Refill [facility] 1.2.840.114 [id number] Univers 00:00:00 00:00:00 [facility] 350.1.13.10 it y of [place] 4.2.7.2.686 Frankie as Professio [phone] [address] Office [facility] One 2021-01-06 2021-01-06 Telephone [facility] 1.2.193.644 [id number] Univers 00:00:00 00:00:00 [facility] 350.1.13.10 it y of [place] 4.2.7.2.686 Frankie as Professio [phone] [address] Office Building One 2021-01-06 2021-01-06 Telephone [facility] 1.2.020.766 [id number] Univers 00:00:00 00:00:00 [facility] 350.1.13.10 it y of [place] 4.2.7.2.686 Frankie as Professio [phone] [address] Office [facility] One 2021-01-01 2021-01-01 Outpatient R JAYDON [facility] [id number] Univers 15:20:00 15:20:00 PABLO [facility] 2020-12-31 2020-12-31 Outpatient R JAYDON [facility] [id number] Univers 15:50:00 15:50:00 PABLO [facility] 2020-12-12 2020-12-12 Refmaddie [facility] 1.2.840.114 [id number] Univers 00:00:00 00:00:00 [facility] 350.1.13.10 it y of [place] 4.2.7.2.686 Frankie as Professio [phone] [address] One 2020-12-11 2020-12-11 [facility] 1.2.840.114 [id number] Univers 00:00:00 00:00:00 [facility] 350.1.13.10 it y of [place] 4.2.7.2.686 Frankie as Professio [phone] [address] One 2020-12-03 2020-12-03 Outpatient Marsha INTERIANO [facility] [id number] Univers 15:50:00 15:50:00 [facility] 2020-11-13 2020-11-13 Office [facility] 1.2.840.114 [id number] Univers 08:46:00 09:20:33 Visit [facility] 350.1.13.10 it y of [place] 4.2.7.2.686 Frankie as Professio [phone] [address] Office [facility] One 2020-11-13 2020-11-13 Outpatient Marsha SHERIFF [facility] [id number] Univers 09:00:00 09:00:00 NEREIDA [facility] 2020-11-11 2020-11-11 [facility] 1.2.840.114 [id number] Univers 00:00:00 00:00:00 Nereida [place] 350.1.13.10 i ty of [place].2.[place] [phone] [place] [address] Branch [facility] 2020-10-10 2020-10-10 Telephone [facility] 1.2.461.780 [id number] Univers 00:00:00 00:00:00 [facility] 350.1.13.10 it y of [place] 4.2.7.2.686 Frankie as Professio [phone] [address] Office Building One 2020-10-10 2020-10-10 Letter [facility] 1.2.840.114 [id number] Univers 00:00:00 00:00:00 (Out) [facility] 350.1.13.10 it y of [place] 4.2.7.2.686 Frankie as Professio [phone] [facility] nal [address] [place] [address] Office [facility] One 2020-10-10 2020-10-10 Refmaddie [facility] 1.2.840.114 [id number] Univers 00:00:00 00:00:00 [facility] 350.1.13.10 it y of [place] 4.2.7.2.686 Frankie as Professio [phone] [address] Office Building One 2020-10-09 2020-10-09 Refmaddie [facility] 1.2.840.114 [id number] Univers 00:00:00 00:00:00 [facility] 350.1.13.10 it y of [place] 4.2.7.2.686 Frankie as Professio [phone] [facility] nal [address] [place] [address] Office Building One 2020-10-08 2020-10-08 Refmaddie [facility] 1.2.840.114 [id number] Univers 00:00:00 00:00:00 [facility] 350.1.13.10 it y of [place] 4.2.7.2.686 Frankie as Professio [phone] [address] Office Building One 2020-10-04 2020-10-04 Outpatient R CED [facility] [id number] Univers 11:15:00 11:15:00 LUAN pierre [facility] 2020-10-04 2020-10-04 Office [facility] 1.2.494.289 [id number] Univers 09:57:57 10:50:32 Visit Luan [facility] 350.1.13.10 it y of Surgical 4.2.7.2.686 Frankie as Specialti [phone] Ut dical es [address] [facility] 2020-09-11 2020-09-11 [facility] 1.2.840.114 [id number] Univers 00:00:00 00:00:00 [facility] 350.1.13.10 it y of [place] 4.2.7.2.686 Frankie as Professio [phone] Ut dical nal 044 [facility] 2020-09-02 2020-09-02 [facility] 1.2.840.114 [id number] Univers 00:00:00 00:00:00 [facility] 350.1.13.10 it y of [place] 4.2.7.2.686 Frankie as Professio [phone] Ut dical nal 044 [facility] 2020-08-26 2020-08-26 [facility] [id number] Univers 13:30:00 13:30:00 MOE ignacio [facility] 2020-08-15 2020-08-15 Office [facility] 1.2.840.114 [id number] Univers 09:59:04 10:14:04 Visit Germain [facility] 350.1.13.10 it y of Surgical 4.2.7.2.686 Frankie as Specialti [phone] Ut dical es [address] [facility] 2020-08-15 2020-08-15 Outpatient [facility] [id number] Univers 10:00:00 10:00:00 GERMAIN henri [facility] 2020-08-13 2020-08-13 Telephone [facility] 1.2.840.114 [id number] Univers 00:00:00 00:00:00 Luan Alejandre [facility] 350.1.13.10 it y of Surgical 4.2.7.2.686 [place]ie as Specialti [phone] Ut dical es [address] [facility] 2020-08-12 2020-08-12 Office [facility] 1.2.840.114 [id number] Univers 09:06:31 09:21:31 Visit Nereida Mir 350.1.13.10 it y of [place] 4.2.7.2.686 Frankie as Professio [phone] Ut dical nal [address] [place] Office [facility] One 2020-08-12 2020-08-12 [facility] [id number] Univers 09:00:00 09:00:00 NEREIDA ithenri of [facility] 2020-08-08 2020-08-08 Office [facility] 1.2.792.548 [id number] Univers 14:52:25 15:06:19 Visit Luan Mir 350.1.13.10 it y of [facility] 4.2.7.2.686 Frankie as Specialti [phone] Ut dical es [address] [facility] 2020-08-08 2020-08-08 [facility] [id number] Univers 15:00:00 15:00:00 LUAN pierre [facility] 2020-08-05 2020-08-05 Emergency [facility] 1.2.115.976 [id number] Univers 15:02:00 17:02:00 Brigida Marsha Lee 350.1.13.10 i ty of [place]2.7.2.686 [place] [phone] [facility] [address] [place] 2020-08-05 2020-08-05 Orders Doctor OLGA 1.2.840.114 [id number] Univers 00:00:00 00:00:00 Only Unassigned, STEVE 350.1.13.10 ity of [place] [facility] 4.2.7.2.686 Frankie as [phone] [facility] [address] [place] 2020-08-01 2020-08-01 Office [facility] 1.2.266.764 [id number] Univers 14:43:38 16:10:03 Visit Almita Clara 350.1.13.10 i ty of [place]2.7.2.686 [place] [phone] Ut dical nal 188 [facility] 2020-08-01 2020-08-01 [facility] [id number] Univers 14:30:00 14:30:00 ALMITA [facility] 2020-07-29 2020-07-29 Rohith [facility] 1.2.840.114 [id number] Univers 00:00:00 00:00:00 [facility] 350.1.13.10 it y of [place] 4.2.7.2.686 Frankie as Professio [phone] [address] 2020-07-23 2020-07-23 [facility] [id number] Univers 14:15:00 14:15:00 ALMITA [facility] 2020-07-23 2020-07-23 Rohith [facility] 1.2.840.114 [id number] Univers 00:00:00 00:00:00 [facility] 350.1.13.10 it y of [place] 4.2.7.2.686 Frankie as Professio [phone] [address] 2020-07-22 2020-07-22 Outpatient [facility] [id number] Univers 10:00:00 10:00:00 KEN [facility] 2020-07-15 2020-07-15 Rohith [facility] 1.2.840.114 [id number] Univers 00:00:00 00:00:00 [facility] 350.1.13.10 it y of [place] 4.2.7.2.686 Frankie as Professio [phone] [address] 2020-06-26 2020-06-26 Rohith YoungersMINERS' [facility] 1.2.840.114 [id number] Univers 00:00:00 00:00:00 [facility] 350.1.13.10 it y of [place] 4.2.7.2.686 Frankie as Professio [phone] [address] 2020-06-25 2020-06-25 Outpatient R MELI [facility] [id number] Univers 13:30:00 13:30:00 TRAVIS [facility] 2020-06-12 2020-06-12 Rohith [facility] 1.2.840.114 [id number] Univers 00:00:00 00:00:00 [facility] 350.1.13.10 it y of [place] 4.2.7.2.686 Frankie as Professio [phone] Ut dical nal [address] [place] [address] 2020-06-12 2020-06-12 Gala [facility] 1.2.931.079 [id number] Univers 00:00:00 00:00:00 [facility] 350.1.13.10 it y of [place] 4.2.7.2.686 Frankie as Professio [phone] Ut dical nal [address] [place] [address] One 2020-06-11 2020-06-11 Rohith [facility] 1.2.840.114 [id number] Univers 00:00:00 00:00:00 [facility] 350.1.13.10 it y of [place] 4.2.7.2.686 Frankie as Professio [phone] Ut dical nal [address] [place] [address] One 2020-06-05 2020-06-05 Rohith [facility] 1.2.840.114 [id number] Univers 00:00:00 00:00:00 [facility] 350.1.13.10 it y of [place] 4.2.7.2.686 Frankie as Professio [phone] Ut dical nal [address] [place] [address] 2020-05-28 2020-05-28 Gala [facility] 1.2.735.188 [id number] Univers 00:00:00 00:00:00 Nereida Lee 350.1.13.10 i ty of [place]2.[place].2.[place] [phone] Ut dical nal 044 [facility] 2020-05-13 2020-05-13 Radiation Oncology Nurse Jenniffer Paige Lab Main [facility] 1.2.8 40.114 [id number] Univers 14:52:09 15:07:09 Visit Nereida Sheriff Clara 350.1.13.10 ity of [place] 4.2.7.2.686 [place] [phone] Ut dical nal 353 [facility] 2020-05-13 2020-05-13 Outpatient R JAZIEL [facility] [id number] Univers 14:30:00 14:30:00 NEREIDA pierre [facility] 2020-05-13 2020-05-13 Office [facility] 1.2.840.114 [id number] Univers 13:57:32 14:12:32 Visit Nereida Lee 350.1.13.10 i ty of [place] 4.2.7.2.686 [place] Profess[place] [phone] [facility] nal [address] [place] [address] 2020-05-09 2020-05-09 Refill [facility] 1.2.840.114 [id number] Univers 00:00:00 00:00:00 [facility] 350.1.13.10 it y of [place] 4.2.7.2.686 Frankie as Professio [phone] [address] 2020-04-10 2020-04-10 Refill [facility] 1.2.840.114 [id number] Univers 00:00:00 00:00:00 [facility] 350.1.13.10 it y of [place] 4.2.7.2.686 Frankie as Professio [phone] [address] 2020-03-13 2020-03-13 Telephone [facility] 1.2.811.891 [id number] Univers 00:00:00 00:00:00 Nereida Lee 350.1.13.10 i ty of [place] 4.2.7.2.686 [place] Profess[place] [phone] [facility] nal [address] [place] [address] 2020-03-11 2020-03-11 Refill [facility] 1.2.840.114 [id number] Univers 00:00:00 00:00:00 [facility] 350.1.13.10 it y of [place] 4.2.7.2.686 [place]ie as Professio [phone] [address] 2020-02-20 2020-02-20 Telemediccarlos RamirezMINERS' [facility] 1.2.840.114 [id number] Univers 08:07:16 16:58:17 ne Visit Travis Lee 350.1.13.10 ity of [place] 4.2.7.2.[place] [phone] Ut dical nal 220 [facility] 2020-02-20 2020-02-20 Outpatient R MELI [facility] [id number] Univers 15:00:00 15:00:00 TRAVIS pierre [facility] 2020-02-15 2020-02-15 Outpatient R SHERIFF [facility] [id number] Univers 07:30:00 07:30:00 NEREIDA pierre [facility] 2020-02-15 2020-02-15 Telemedici [facility] 1.2.840.114 [id number] Univers 06:51:18 07:06:18 ne Visit Nereida Lee 350.1.13.10 ity of [place] 4.2.7.2.[place] Profess[place] [phone] [facility] 044 [facility] 2020-02-14 2020-02-14 Out[facility] [id number] Univers 07:00:00 07:00:00 NEREIDA pierre [facility] 2020-02-12 2020-02-12 Refmaddie [facility] 1.2.840.114 [id number] Univers 00:00:00 00:00:00 Nereida [facility] 350.1.13.10 it y of [place] 4.2.7.2.686 Frankie as Professio [phone] Ut dical nal 044 [facility] 2020-01-11 2020-01-11 Refill [facility] 1.2.840.114 [id number] Univers 00:00:00 00:00:00 [facility] 350.1.13.10 it y of [place] 4.2.7.2.686 Frankie as Professio [phone] Ut dical nal 044 [facility] One 2019-12-28 2019-12-28 Office [facility] 1.2.840.114 [id number] Univers 09:22:44 09:56:04 Visit Nereida [facility] 350.1.13.10 it y of [place] 4.2.7.2.686 Frankie as Professio [phone] [address] Office Building One 2019-12-28 2019-12-28 Outpatient R JAZIEL [facility] [id number] Univers 09:30:00 09:30:00 NEREIDA pierre [facility] 2019-12-14 2019-12-14 Refmaddie [facility]MIN[facility] 1.2.840.114 [id number] Univers 00:00:00 00:00:00 [facility] 350.1.13.10 it y of [place] 4.2.7.2.686 Frankie as Professio [phone] [address] Office Building One 2019-12-11 2019-12-11 Telephone [facility] 1.2.562.943 [id number] Univers 00:00:00 00:00:00 [facility] 350.1.13.10 it y of [place] 4.2.7.2.686 Frankie as Professio [phone] [address] Office Building One 2019-12-02 2019-12-02 Refill [facility] 1.2.840.114 [id number] Univers 00:00:00 00:00:00 [facility] 350.1.13.10 it y of [place] 4.2.7.2.686 Frankie as Professio [phone] [address] Office Building One 2019-11-15 2019-11-15 Office [facility] 1.2.840.114 [id number] Univers 06:58:39 07:13:39 Visit [facility] 350.1.13.10 it y of [place] 4.2.7.2.686 Frankie as Professio [phone] [address] Office Building One 2019-10-27 2019-10-27 Outpatient R JENNIFER [facility] [id number] Univers 09:55:58 23:59:00 ZACARIAS ignacio [facility] 2019-07-20 2019-07-20 Refmaddie [facility]MIN[facility] 1.2.840.114 [id number] Univers 00:00:00 00:00:00 [facility] 350.1.13.10 it y of [place] 4.2.7.2.686 Frankie as Professio [phone] Ut dical nal [place] Office [facility] One 2019-07-04 2019-07-04 Refmaddie [facility] 1.2.840.114 [id number] Univers 00:00:00 00:00:00 [facility] 350.1.13.10 it y of [place] 4.2.7.2.686 Frankie as Professio [phone] Ut mauoh nal Mary [facility] One 2019-06-28 2019-06-28 Office [facility] 1.2.840.114 [id number] Univers 09:34:17 10:06:56 Visit [facility] 350.1.13.10 it y of [place] 4.2.7.2.686 Frankie as Professio [phone] Ut maual nal [address] [place] [address] One 2019-06-28 2019-06-28 Refmaddie [facility] 1.2.840.114 [id number] Univers 00:00:00 00:00:00 [facility] 350.1.13.10 it y of [place] 4.2.7.2.686 Frankie as Professio [phone] Ut maual nal [address] [place] [address] One 2019-06-21 2019-06-21 Refmaddie [facility] 1.2.840.114 [id number] Univers 00:00:00 00:00:00 [facility] 350.1.13.10 it y of [place] 4.2.7.2.686 Frankie as Professio [phone] Ut mauoh nal [address] [place] [address] One 2018-12-09 2018-12-09 Ambulatory nullFlavo MNA [id number] Memoria 20:45:00 20:45:00 Pre-Reg r Neurology 03 l [facility] 2018-12-09 2018-12-09 Ambulatory nullFlavo MNA [id number] Memoria 20:45:00 20:45:00 Pre-Reg r Neurology 03 l [facility] 2018-12-09 2018-12-09 Outpatient MHIE MHIE [id number] Memoria 14:45:00 14:45:00 03 l [place] 2018-12-09 2018-12-09 [facility] [id number] 14:45:00 14:45:00 John Daina Mcmanus 2018-07-26 2018-07-26 Outpatient MHIE MORRISIE [id number] Memoria 09:00:00 09:00:00 02 pili Seay 2018-07-26 2018-07-26 Outpatient MHIE MHIE [id number] Memoria 09:00:00 09:00:00 02 pili SolomonBrimhall 2018-04-26 2018-04-26 Outpatient MHIE MHIE [id number] Memoria 08:30:00 08:30:00 01 pili [place] 2018-04-26 2018-04-26 Outpatient MHIE MHIE [id number] Memoria 08:30:00 08:30:00 01 pili [place] 2018-04-04 2018-04-05 Day nullFlavo [facility] [id number] Memoria 17:57:00 04:59:00 Surgery r [place] 02 l Orthopedic [facility] 2018-04-04 2018-04-05 Day nullFlavo [facility] [id number] Memoria 17:57:00 04:59:00 Surgery r [place] 02 l Orthopedic [facility] 2018-04-04 2018-04-04 Outpatient Kimberly Ng [facility] [id number] 12:57:00 23:59:00 Han 2018-03-30 2018-03-30 Outpatient MHIE MORRISIE [id number] Memoria 13:30:00 13:30:00 00 pili [place] 2018-03-30 2018-03-30 Outpatient MHIE MORRISIE [id number] Memoria 13:30:00 13:30:00 00 l [place] 2018-03-21 2018-03-22 Day nullFlavo [facility] [id number] Memoria 19:01:00 04:59:00 Surgery r Dawood 01 l Orthopedic [facility] 2018-03-21 2018-03-22 Day nullFlavo [facility] [id number] Memoria 19:01:00 04:59:00 Surgery r [place] 01 l Orthopedic [facility] 2018-03-21 2018-03-21 Outpatient Kimberly Ng [facility] [id number] 14:01:00 23:59:00 Han 2015-11-08 2015-11-08 Bedded nullFlavo [facility] [id number] Memoria 18:06:00 21:20:00 Outpatient r Dawood 00 l [place] 2015-11-08 2015-11-08 Bedded Jacquie [facility] [id number] Memoria 18:06:00 21:20:00 Outpatient r [place] 00 l [place] 2015-11-08 2015-11-08 Outpatient Guerrero, SL SL [id number] 12:06:00 15:20:00 Sheilendra 00 [place] 2015-10-24 2015-10-25 Outpt Diag nullFlavo [facility] [id number] Memoria 15:50:00 05:59:00 Services r Outpatient 00 l Imaging Dawood Sayre 2015-10-24 2015-10-25 Outpt Diag nullFlavo [facility] [id number] Memoria 15:50:00 05:59:00 Services r Outpatient 00 l Imaging Dawood Sayre 2015-10-24 2015-10-24 [facility] [id number] 09:50:00 23:59:00 Sheilendra 00 [facility] Results Test Description Test Time Test [...] given. Lab Interpretation (test Abnormal code = 08805-9) [facility] [id number] 18:11:00 Test Item Value Reference Range Interpretation [...] and estimated CrCl>=30 mL/min ) Ref: Chest 2008 ; 133;141S-1598S [Automated message] The system which [...] given. Lab Interpretation Abnormal (test code = 62766-8) [facility] [id number] 18:11:00 Test Item Value Reference Range Interpretation [...] and estimated CrCl>=30 mL/min ) Ref: Chest 2008 ; 133;141S-1598S [Automated message] The system which [...] given. Lab Interpretation Abnormal (test code = 86880-2) [facility] [id number] 18:11:00 Test Item Value Reference Range Interpretation [...] and estimated CrCl>=30 mL/min ) Ref: Chest 2008 ; 133;141S-1598S [Automated message] The system which [...] given. Lab Interpretation Abnormal (test code = 71430-9) [facility] Glucose [id number] 17:09:21 Test Item Value Reference Interpretation Comments [...] Capillary code = 9554) Performing Lab (test [facility] code = 89356) [facility] [address] [place] [address]; Auto Bumper Straightener: Margarita Jacob MD; Waived Point of Care Testing - Gabrielle aaron MD Lab Interpretation Abnormal (test code = 93508-4) [facility] Glucose [id number] 17:09:21 Test Item Value Reference Interpretation Comments [...] te st results by core lab methodology. Ut thod description: Al l results are soraya sured using Electrochemistr y test methodology. Th e glucose in the sample mixes with the reagents on the test strip. The reac tion produces an cristine ctric current. The am ount of current prod uced is proportional to the glucose concentration i n the blood. PO Sample Type (test Capillary code = 9554) Performing Lab (test [facility] code = 64617) [facility], [address], [place] [address]; Auto Bumper Straightener: Margarita Jacob MD; Waived Point of Care Testing - Gabrielle aaron MD Lab Interpretation Abnormal (test code = 15041-2) [facility] Glucose [id number] 17:09:21 Test Item Value Reference Interpretation Comments [...] Capillary code = 9554) Performing Lab (test [facility] code = 52006) [facility] Cli nical Lab, [address], [place] [address]; Auto Bumper Straightener: Margarita Jacob MD; Waived Point of Care Testing - Gabrielle aaron MD Lab Interpretation Abnormal (test code = 30069-8) [facility] Glucose [id number] 17:09:21 Test Item Value Reference Interpretation Comments [...] Capillary code = 9554) Performing Lab (test [facility] Main Callery Main Callery code = 79725) [facility] Cli nical Lab, [address], [place] [address]; Auto Bumper Straightener: Margarita Jacob MD; Waived Point of Care Testing - aGbrielle aaron MD Lab Interpretation Abnormal (test code = 01883-7) [facility] [id number] 12:26:50 Test Item Value Reference Range Interpretation Comments Phosphorus (test code = 2777-1) 4.3 mg/dL 2.5-4.5 [facility] [id number] 12:26:50 Test Item Value Reference Range Interpretation Comments Phosphorus (test code = 2777-1) 4.3 mg/dL 2.5-4.5 [facility] [id number] 12:26:50 Test Item Value Reference Range Interpretation Comments Phosphorus (test code = 2777-1) 4.3 mg/dL 2.5-4.5 [facility] [id number] 12:26:50 Test Item Value Reference Range Interpretation Comments Phosphorus (test code = 2777-1) 4.3 mg/dL 2.5-4.5 [facility] [id number] 16:10:55 Test Item Value Reference Range Interpretation Comments Final Report (test code = 8488) No growth [facility] [id number] 16:10:55 Test Item Value Reference Range Interpretation Comments Final Report (test code = 8488) No growth [facility] [id number] 16:10:55 Test Item Value Reference Range Interpretation Comments Final Report (test code = 8488) No growth [facility] [id number] 16:10:55 Test Item Value Reference Range Interpretation Comments Final Report (test code = 8488) No growth [facility] Austin[facility]calcitonin2023-04-14 16:06:17 Test Item Value Reference Range Interpretation Comments Procalcitonin (test 0.38 ng/mL <=0.08 H Procalci tonin > 2.00 code = 63682-5) ng/mL: Proca lcitonin levels above 2. 00 [...] extended diluti on as it exceeds the surface logging systems logger's recommended goldberg it. Caution should be exercised when interpreting agarwal ch values and done in conjunction wit clinical contex t. Lab Interpretation Abnormal (test code = 63519-7) [facility]2023-[facility]-14 16:06:17 Test Item Value Reference Range Interpretation Comments Procalcitonin (test 0.38 ng/mL <=0.08 H Procalci tonin > 2.00 code = 69094-4) ng/mL: Proca lcitonin levels above 2. 00 [...] extended diluti on as it exceeds the surface logging systems logger's recommended goldberg it. Caution should be exercised when interpreting agarwal ch values and done in conjunction wit clinical contex t. Lab Interpretation Abnormal (test code = 59783-0) [facility]2023-04-14 16:06:17 Test Item Value Reference Range Interpretation Comments Procalcitonin (test 0.38 ng/mL <=0.08 H Procalci tonin > 2.00 code = 31233-4) ng/mL: Proca lcitonin levels above 2. 00 [...] extended diluti on as it exceeds the surface logging systems logger's recommended goldberg it. Caution should be exercised when interpreting agarwal ch values and done in conjunction wit clinical contex t. Lab Interpretation Abnormal (test code = 37159-8) [facility] Cancer [id number] 16:06:17 Test Item Value Reference Range Interpretation Comments Procalcitonin (test 0.38 ng/mL <=0.08 H Procalci tonin > 2.00 code = 37836-6) ng/mL: Proca lcitonin levels above 2. 00 [...] extended diluti on as it exceeds the surface logging systems logger's recommended goldberg it. Caution should be exercised when interpreting agarwal ch values and done in conjunction wit clinical contex t. Lab Interpretation Abnormal (test code = 72925-4) [facility] Laboratory Add-On Test 2023-02-12 15:17:04 Test Item Value Reference Range Interpretation Comments Ordered (test code = 6568) Test Added Test Needed (test code = 7604) procalcitonin [facility] Laboratory Add-On Test 2023-02-12 15:17:04 Test Item Value Reference Range Interpretation Comments Ordered (test code = 6568) Test Added Test Needed (test code = 7604) procalcitonin [facility] Laboratory Add-On Test 2023-02-12 15:17:04 Test Item Value Reference Range Interpretation Comments Ordered (test code = 6568) Test Added Test Needed (test code = 7604) procalcitonin [facility] Laboratory Add-On Test 2023-02-12 15:17:04 Test Item Value Reference Range Interpretation Comments Ordered (test code = 6568) Test Added Test Needed (test code = 7604) procalcitonin [facility] [id number] 12:16:45 Test Item Value Reference Range Interpretation Comments CK (test code = 2157-6) 125 U/L 26-192 [facility] [id number] 12:16:45 Test Item Value Reference Range Interpretation Comments CK (test code = 2157-6) 125 U/L 26-192 [facility] [id number] 12:16:45 Test Item Value Reference Range Interpretation Comments CK (test code = 2157-6) 125 U/L 26-192 [facility] [id number] 12:16:45 Test Item Value Reference Range Interpretation Comments CK (test code = 2157-6) 125 U/L 26-192 [facility] AustinHIV-1/2 Antigen and Antibodies, Fourth [id number] 07:28:44 Test Item Value Reference Range Interpretation Comments HIV Ag/Ab, NON-REACTIVE NON-REACTIVE HIV-1 antigen a nd 4TH Gen (test HIV-1/HIV-2 an tibodies were code = 96493) notdetected. T here is no laboratory evid [...] it pertains, or as otherwise permitted by [place] w.A general authorization f or the release of medi mari orother information is NOT sufficient for this purpose. For additional information please refer tohttp://Mbite/faq /XKU873(This link is being p rovided for informational/e ducational purposes only.) The performance of this assay has not been clinicallyvalid ated in patients less t go 2 years old. Lab test p erformed by:Lab Mnemonic : [employer] [facility] [id number] [place] [address]DWSHK Christelle MELÉNDEZ MD [facility] Cancer WindberHIV-1/2 Antigen and Antibodies, Fourth [id number] 07:28:44 Test Item Value Reference Range Interpretation Comments HIV Ag/Ab, NON-REACTIVE NON-REACTIVE HIV-1 antigen a nd 4TH Gen (test HIV-1/HIV-2 an tibodies were code = 30255) notdetected. T here is no laboratory evid [...] it pertains, or as otherwise permitted by la w.A general authorization f or the release of medi mrai orother information is NOT sufficient for this purpose. For additional information please refer tohttp://[employer].Lucky Sort/faq /QTJ269(This link is being p rovided for informational/e ducational purposes only.) The performance of this assay has not been clinicallyvalid ated in patients less t go 2 years old. Lab test p erformed by:Lab Mnemonic : [employer] [facility] [id number] [place] [address]CYBLTJAKE MELÉNDEZ MD [facility] Cancer WindberHIV-1/2 Antigen and Antibodies, Fourth Hidrjyfvtq6979-21-27 07:28:44 Test Item Value Reference Range Interpretation Comments HIV Ag/Ab, NON-REACTIVE NON-REACTIVE HIV-1 antigen a nd 4TH Gen (test HIV-1/HIV-2 an tibodies were code = 01857) notdetected. T here is no laboratory evid [...] pertains, or as otherwise permitted by maryjo awan.A general authorization f or the release of medi mari orother information is NOT sufficient for this purpose. For additional information please refer tohttp://educat ion.[employer].Lucky Sort/faq /FVG377(This link is being p rovided for informational/e ducational purposes only.) The performance of this assay has not been clinicallyvalid ated in patients less t go 2 years old. Lab test p erformed by:Lab Mnemonic : [employer] [facility] [id number] [place] [address]VAQTJJAKE MELÉNDEZ MD [facility] Cancer WindberHIV-1/2 Antigen and Antibodies, Fourth [id number] 07:28:44 Test Item Value Reference Range Interpretation Comments HIV Ag/Ab, NON-REACTIVE NON-REACTIVE HIV-1 antigen a nd 4TH Gen (test HIV-1/HIV-2 an tibodies were code = 42918) notdetected. T here is no laboratory evid [...] purpose. For additional information please refer tohttp://educat ion.[employer].Lucky Sort/faq /XWN006(This link is being p rovided for informational/e ducational purposes only.) The performance of this assay has not been clinicallyvalid ated in patients less t go 2 years old. Lab test p erformed by:Lab Mnemonic : [employer] [facility] [id number] [place] [address]HBYON Christelle MELÉNDEZ MD [facility] Austin[facility] [id number] 13:51:10 Test Item Value Reference Range Interpretation Comments Final Report (test code = 10 - 50,000 cfu/ml A 8488) Normal site isabel present.Generally of low significance.Correl ate with clinical data and culture history. Lab Interpretation (test Abnormal code = 90932-5) [facility] Austin[facility] [id number] 13:51:10 Test Item Value Reference Range Interpretation Comments Final Report (test code = 10 - 50,000 cfu/ml A 8488) Normal site isabel present.Generally of low significance.Correl ate with clinical data and culture history. Lab Interpretation (test Abnormal code = 19051-7) [facility] Austin[facility] [id number] 13:51:10 Test Item Value Reference Range Interpretation Comments Final Report (test code = 10 - 50,000 cfu/ml A 8488) Normal site isabel present.Generally of low significance.Correl ate with clinical data and culture history. Lab Interpretation (test Abnormal code = 15801-5) [facility] Austin[facility] [id number] 13:51:10 Test Item Value Reference Range Interpretation Comments Final Report (test code = 10 - 50,000 cfu/ml A 8488) Normal site isabel present.Generally of low significance.Correl ate with clinical data and culture history. Lab Interpretation (test Abnormal code = 97279-9) [facility] AustinGastrointestinal Multiplex Panel Path [id number] 21:40:55GIMP PRReviewed and Electronically signed by Pathologist:PATRICIA CHAVEZ MD [facility][id number] [facility] Review 2023-02-07 21:40:55GIMP PRReviewed and Electronically signed by Pathologist:PATRICIA CHAVEZ MD #[id number] [facility] HospitalGastro[facility] Multiplex Panel Path Review 2023-02-07 21:40:55GIMP PRReviewed and Electronically signed by Pathologist:PATRICIA CHAVEZ MD #[id number] [facility] HospitalGastro[facility] Multiplex Panel Path Review 2023-02-07 21:40:55GIMP PRReviewed and Electronically signed by Pathologist:PATRICIA CHAVEZ MD #[id number] [facility] HospitalClostridium Difficile DNA Path Review 2023-02-07 21:35:15C diff DNA PRReviewed and Electronically signed by Pathologist:PATRICIA CHAVEZ MD #[id number] [facility] HospitalClostridium Difficile DNA Path Review 2023-02-07 21:35:15C diff DNA PRReviewed and Electronically signed by Pathologist:PATRICIA CHAVEZ MD #[id number] [facility] HospitalClostridium Difficile DNA Path Review 2023-02-07 21:35:15C diff DNA PRReviewed and Electronically signed by Pathologist:PATRICIA CHAVEZ MD #[id number] [facility] HospitalClostridium Difficile DNA Path Review 2023-02-07 21:35:15C diff DNA PRReviewed and Electronically signed by Pathologist:PATRICIA CHAVEZ MD #[id number] [facility] HospitalHepatitis B Surface [id number] 17:09:39 Test Item Value Reference Range Interpretation Comments HBsAg. (test code = 5747) Non Reactive Non Reactive [facility] AustinHepatitis B Surface [id number] 17:09:39 Test Item Value Reference Range Interpretation Comments HBsAg. (test code = 5747) Non Reactive Non Reactive [facility] AustinHepatitis B Surface [id number] 17:09:39 Test Item Value Reference Range Interpretation Comments HBsAg. (test code = 5747) Non Reactive Non Reactive [facility] AustinHepatitis B Surface [id number] 17:09:39 Test Item Value Reference Range Interpretation Comments HBsAg. (test code = 5747) Non Reactive Non Reactive [facility]He[facility] C Virus [id number] 16:29:30 Test Item Value Reference Range Interpretation Comments HCVAb. (test Non Reactive Non Reactive Antibody detect ion in the code = 5762) immunocompromis ed and immunosuppresse d population may be delayed or absent entirely. There fore serial testing, correl ation with other clinical findings, and supplementa l testing (if available) should be taken into cons ideration when interpreti ng the results. [facility] C Virus [id number] 16:29:30 Test Item Value Reference Range Interpretation Comments HCVAb. (test Non Reactive Non Reactive Antibody detect ion in the code = 5762) immunocompromis ed and immunosuppresse d population may be delayed or absent entirely. There fore serial testing, correl ation with other clinical findings, and supplementa l testing (if available) should be taken into cons ideration when interpreti ng the results. [facility] C Virus [id number] 16:29:30 Test Item Value Reference Range Interpretation Comments HCVAb. (test Non Reactive Non Reactive Antibody detect ion in the code = 5762) immunocompromis ed and immunosuppresse d population may be delayed or absent entirely. There fore serial testing, correl ation with other clinical findings, and supplementa l testing (if available) should be taken into cons ideration when interpreti ng the results. [facility] C Virus [id number] 16:29:30 Test Item Value Reference Range Interpretation Comments HCVAb. (test Non Reactive Non Reactive Antibody detect ion in the code = 5762) immunocompromis ed and immunosuppresse d population may be delayed or absent entirely. There fore serial testing, correl ation with other clinical findings, and supplementa l testing (if available) should be taken into cons ideration when interpreti ng the results. [facility] B Total Ig Core Ab (SCREENING) (anti-HBc total Ig; HBcAb total Ig)2023-02-07 16:29:12 Test Item Value Reference Range Interpretation Comments HBcAb. (test code = 5742) Non Reactive Non Reactive [facility] B Total Ig Core Ab (SCREENING) (anti-HBc total Ig; HBcAb total Ig)2023-02-07 16:29:12 Test Item Value Reference Range Interpretation Comments HBcAb. (test code = 5742) Non Reactive Non Reactive [facility] B Total Ig Core Ab (SCREENING) (anti-HBc total Ig; HBcAb total Ig)2023-02-07 16:29:12 Test Item Value Reference Range Interpretation Comments HBcAb. (test code = 5742) Non Reactive Non Reactive [facility] B Total Ig Core Ab (SCREENING) (anti-HBc total Ig; HBcAb total Ig)2023-02-07 16:29:12 Test Item Value Reference Range Interpretation Comments HBcAb. (test code = 5742) Non Reactive Non Reactive [facility] AustinClostridium Difficile DNA Assay 2023-02-07 14:32:28 Test Item Value Reference Range Interpretation Comments C difficile DNA (test Negative Negative code = 5134) C difficle Toxin EIA Test Not Performed Negative (test code = 8961) C difficile C. difficile DNA Interpretation (test code detection was = 0456103) negative making C. difficile infection highly unlikely in this patient. EIA not performed. [facility] AustinClostridium Difficile DNA Assay 2023-02-07 14:32:28 Test Item Value Reference Range Interpretation Comments C difficile DNA (test Negative Negative code = 5134) C difficle Toxin EIA Test Not Performed Negative (test code = 8961) C difficile C. difficile DNA Interpretation (test code detection was = 6705232) negative making C. difficile infection highly unlikely in this patient. EIA not performed. [facility] AustinClostridium Difficile DNA Assay 2023-02-07 14:32:28 Test Item Value Reference Range Interpretation Comments C difficile DNA (test Negative Negative code = 5134) C difficle Toxin EIA Test Not Performed Negative (test code = 8961) C difficile C. difficile DNA Interpretation (test code detection was = 1510747) negative making C. difficile infection highly unlikely in this patient. EIA not performed. [facility] AustinClostridium Difficile DNA Assay 2023-02-07 14:32:28 Test Item Value Reference Range Interpretation Comments C difficile DNA (test Negative Negative code = 5134) C difficle Toxin EIA Test Not Performed Negative (test code = 8961) C difficile C. difficile DNA Interpretation (test code detection was = 8918263) negative making C. difficile infection highly unlikely in this patient. EIA not performed. [facility] AustinGastrointestinal Multiplex Panel 2023-02-07 13:55:28 Test Item Value Reference Range Interpretation Comments Campylobacter (test code = Not Detected Not Detected 23591-7) C difficile DNA (GI Multi Refer to separate Panel) (test code = C. difficile DNA 39480-7) Assay for results Plesiomonas shigelloides Not Detected Not Detected (test code = 68741-1) Salmonella (test code = Not Detected Not Detected 20755-3) Vibrio (test code = Not Detected Not Detected 95639-5) Vibrio cholerae (test code Not Detected Not Detected = 63823-7) Yersinia enterocolitica Not Detected Not Detected (test code = 75459-4) Enteroaggregative E. coli Not Detected Not Detected (EAEC) (test code = 14812-9) Enteropathogenic E. coli Not Detected Not Detected (EPEC) (test code = 21002-2) Enterotoxigenic E. coli Not Detected Not Detected (ETEC) (test code = 03489-7) Shiga-like toxin-producing Not Detected Not Detected E. col (STEC) (test code = 77686-9) E. coli O157 (test code = Not Applicable Not Detected 49723-3) Shigella/Enteroinvasive E. Not Detected Not Detected coli (EIEC) (test code = 08910-5) Cryptosporidium (test code Not Detected Not Detected = 41921-0) Cyclospora cayetanensis Not Detected Not Detected (test code = 63211-6) Entamoeba histolytica Not Detected Not Detected (test code = 42355-7) Giardia lamblia (test code Not Detected Not Detected = 96418-6) Adenovirus F 40/41 (test Not Detected Not Detected code = 96997-0) Astrovirus (test code = Not Detected Not Detected 90592-1) Norovirus GI/GII (test Not Detected Not Detected code = 19675-7) Rotavirus A (test code = Not Detected Not Detected 27907-3) Sapovirus (I, II, IV and Not Detected Not Detected V) (test code = 67464-8) [facility]berGastrointestinal Multiplex Panel 2023-02-07 13:55:28 Test Item Value Reference Range Interpretation Comments Campylobacter (test code = Not Detected Not Detected 78813-7) C difficile DNA (GI Multi Refer to separate Panel) (test code = C. difficile DNA 82821-8) Assay for results Plesiomonas shigelloides Not Detected Not Detected (test code = 06308-5) Salmonella (test code = Not Detected Not Detected 04770-7) Vibrio (test code = Not Detected Not Detected 17647-9) Vibrio cholerae (test code Not Detected Not Detected = 19106-1) Yersinia enterocolitica Not Detected Not Detected (test code = 27070-8) Enteroaggregative E. coli Not Detected Not Detected (EAEC) (test code = 56375-8) Enteropathogenic E. coli Not Detected Not Detected (EPEC) (test code = 20955-7) Enterotoxigenic E. coli Not Detected Not Detected (ETEC) (test code = 56845-8) Shiga-like toxin-producing Not Detected Not Detected E. col (STEC) (test code = 42983-1) E. coli O157 (test code = Not Applicable Not Detected 90729-8) Shigella/Enteroinvasive E. Not Detected Not Detected coli (EIEC) (test code = 13526-7) Cryptosporidium (test code Not Detected Not Detected = 33845-6) Cyclospora cayetanensis Not Detected Not Detected (test code = 45229-6) Entamoeba histolytica Not Detected Not Detected (test code = 67012-2) Giardia lamblia (test code Not Detected Not Detected = 89976-1) Adenovirus F 40/41 (test Not Detected Not Detected code = 85806-7) Astrovirus (test code = Not Detected Not Detected 19318-2) Norovirus GI/GII (test Not Detected Not Detected code = 88945-7) Rotavirus A (test code = Not Detected Not Detected 66144-5) Sapovirus (I, II, IV and Not Detected Not Detected V) (test code = 49822-8) [facility]berGastrointestinal Multiplex Panel 2023-02-07 13:55:28 Test Item Value Reference Range Interpretation Comments Campylobacter (test code = Not Detected Not Detected 79810-4) C difficile DNA (GI Multi Refer to separate Panel) (test code = C. difficile DNA 91846-6) Assay for results Plesiomonas shigelloides Not Detected Not Detected (test code = 06439-5) Salmonella (test code = Not Detected Not Detected 10533-3) Vibrio (test code = Not Detected Not Detected 54453-4) Vibrio cholerae (test code Not Detected Not Detected = 82069-8) Yersinia enterocolitica Not Detected Not Detected (test code = 35513-1) Enteroaggregative E. coli Not Detected Not Detected (EAEC) (test code = 62100-4) Enteropathogenic E. coli Not Detected Not Detected (EPEC) (test code = 35864-8) Enterotoxigenic E. coli Not Detected Not Detected (ETEC) (test code = 41370-4) Shiga-like toxin-producing Not Detected Not Detected E. col (STEC) (test code = 54712-8) E. coli O157 (test code = Not Applicable Not Detected 30208-2) Shigella/Enteroinvasive E. Not Detected Not Detected coli (EIEC) (test code = 21882-8) Cryptosporidium (test code Not Detected Not Detected = 50619-7) Cyclospora cayetanensis Not Detected Not Detected (test code = 72390-7) Entamoeba histolytica Not Detected Not Detected (test code = 16705-7) Giardia lamblia (test code Not Detected Not Detected = 93763-4) Adenovirus F 40/41 (test Not Detected Not Detected code = 40368-1) Astrovirus (test code = Not Detected Not Detected 44707-0) Norovirus GI/GII (test Not Detected Not Detected code = 38446-9) Rotavirus A (test code = Not Detected Not Detected 72560-9) Sapovirus (I, II, IV and Not Detected Not Detected V) (test code = 85475-2) [facility] 2023-02-07 13:55:28 Test Item Value Reference Range Interpretation Comments Campylobacter (test code = Not Detected Not Detected 20680-2) C difficile DNA (GI Multi Refer to separate Panel) (test code = C. difficile DNA 04477-4) Assay for results Plesiomonas shigelloides Not Detected Not Detected (test code = 00875-8) Salmonella (test code = Not Detected Not Detected 08396-7) Vibrio (test code = Not Detected Not Detected 83123-6) Vibrio cholerae (test code Not Detected Not Detected = 75165-5) Yersinia enterocolitica Not Detected Not Detected (test code = 72590-3) Enteroaggregative E. coli Not Detected Not Detected (EAEC) (test code = 45492-2) Enteropathogenic E. coli Not Detected Not Detected (EPEC) (test code = 01479-7) Enterotoxigenic E. coli Not Detected Not Detected (ETEC) (test code = 15274-9) Shiga-like toxin-producing Not Detected Not Detected E. col (STEC) (test code = 80471-9) E. coli O157 (test code = Not Applicable Not Detected 55876-9) Shigella/Enteroinvasive E. Not Detected Not Detected coli (EIEC) (test code = 03302-5) Cryptosporidium (test code Not Detected Not Detected = 80489-3) Cyclospora cayetanensis Not Detected Not Detected (test code = 61198-4) Entamoeba histolytica Not Detected Not Detected (test code = 72331-7) Giardia lamblia (test code Not Detected Not Detected = 23296-6) Adenovirus F 40/41 (test Not Detected Not Detected code = 56743-1) Astrovirus (test code = Not Detected Not Detected 08128-6) Norovirus GI/GII (test Not Detected Not Detected code = 08688-4) Rotavirus A (test code = Not Detected Not Detected 18575-0) Sapovirus (I, II, IV and Not Detected Not Detected V) (test code = 54267-2) [facility] [id number] 13:31:20 Test Item Value Reference Range Interpretation Comments Ferritin Lvl (test code = 2276-4) 320 ng/mL 13-150 H Lab Interpretation (test code = Abnormal 27103-6) [facility] [id number] 13:31:20 Test Item Value Reference Range Interpretation Comments Ferritin Lvl (test code = 2276-4) 320 ng/mL 13-150 H Lab Interpretation (test code = Abnormal 37888-3) [facility] [id number] 13:31:20 Test Item Value Reference Range Interpretation Comments Ferritin Lvl (test code = 2276-4) 320 ng/mL 13-150 H Lab Interpretation (test code = Abnormal 04756-4) [facility] [id number] 13:31:20 Test Item Value Reference Range Interpretation Comments Ferritin Lvl (test code = 2276-4) 320 ng/mL 13-150 H Lab Interpretation (test code = Abnormal 12603-3) [facility] AustinTrans[facility] with [id number] 13:25:21 Test Item Value Reference Range Interpretation Comments Transferrin (test code 205 mg/dL 200-360 = 3034-6) TIBC (test code = 287 See_Comment [Automate d message] 2500-7) The system Opendisc generated this result transmitted ref erence range: 250 - 45 0 mcg/dL. The ref erence range was not u sed to interpret this result as normal/abnor mal. [facility] AustinTransferr[facility] with [id number] 13:25:21 Test Item Value Reference Range Interpretation Comments Transferrin (test code 205 mg/dL 200-360 = 3034-6) TIBC (test code = 287 See_Comment [Automate d message] 2500-7) The system [employer] generated this result transmitted ref erence range: 250 - 45 0 mcg/dL. The ref erence range was not u sed to interpret this result as normal/abnor mal. [facility]Trans[facility] with [id number] 13:25:21 Test Item Value Reference Range Interpretation Comments Transferrin (test code 205 mg/dL 200-360 = 3034-6) TIBC (test code = 287 See_Comment [Automate d message] 2500-7) The system ic h generated this result transmitted ref erence range: 250 - 45 0 mcg/dL. The ref erence range was not u sed to interpret this result as normal/abnor mal. [facility]Trans[facility] with [id number] 13:25:21 Test Item Value Reference Range Interpretation Comments Transferrin (test code 205 mg/dL 200-360 = 3034-6) TIBC (test code = 287 See_Comment [Automate d message] 2500-7) The system ic h generated this result transmitted ref erence range: 250 - 45 0 mcg/dL. The ref erence range was not u sed to interpret this result as normal/abnor mal. [facility]2023-04-09 13:25:20 Test Item Value Reference Range Interpretation Comments Iron (test code = 51 See_Comment [Automate d message] The 2498-4) system which ge nerated this result transmit kaylie reference range : 37 - 145 mcg/dL. The ref erence range was not used to interpret this result as normal/abnormal . [facility]2023-04-09 13:25:20 Test Item Value Reference Range Interpretation Comments Iron (test code = 51 See_Comment [Automate d message] The 2498-4) system which ge nerated this result transmit kaylie reference range : 37 - 145 mcg/dL. The ref erence range was not used to interpret this result as normal/abnormal . [facility]2023-04-09 13:25:20 Test Item Value Reference Range Interpretation Comments Iron (test code = 51 See_Comment [Automate d message] The 2498-4) system which ge nerated this result transmit kaylie reference range : 37 - 145 mcg/dL. The ref erence range was not used to interpret this result as normal/abnormal . [facility]2023-04-09 13:25:20 Test Item Value Reference Range Interpretation Comments Iron (test code = 51 See_Comment [Automate d message] The 2498-4) system which ge nerated this result transmit kaylie reference range : 37 - 145 mcg/dL. The ref erence range was not used to interpret this result as normal/abnormal . [facility] AustinLip[facility] [id number] 13:23:33 Test Item Value Reference Range Interpretation Comments Chol (test code = 137 mg/dL <=199 ATP III Cl assification 2092-12) of Total Choles terol Primary Target of Therapy (in mg/dL):<200 Zbwdkopau101-12 9 Borderline high >=240 High Trig (test code = 184 mg/dL <=149 H ATP III Cl assification 2571-8) of Serum Trigly cerides Primary Target of Therapy (in mg/dL):<150 Lrznll897-982 Borderline high 200-499 High>=500 Very highNon-fasting triglycerides > 200 mg/dL may be fo llowed up with a fasti ng Lipid Panel. Calculated LDL- C may be falsely decr eased when non-fastin g triglycerides > 200 mg/dL. HDL (test code = 27 mg/dL >=40 L 2085-07) LDL (test code = 73 mg/dL <=100 ATP III Cla ssification 92451-7) of LDL Choleste rol Primary Target of Therapy (in mg/dL):<100 Xpukhco167-417 Near optimal/above bsautmd463-045 Borderline high 160-189 High>=190 Very high VLDL (test code = 37 mg/dL 50384-5) Lab Interpretation Abnormal (test code = 38538-1) [facility] [id number] 13:23:33 Test Item Value Reference Range Interpretation Comments Chol (test code = 137 mg/dL <=199 ATP III Cl assification 2092-12) of Total Choles terol Primary Target of Therapy (in mg/dL):<200 Jfppfywmz726-69 9 Borderline high >=240 High Trig (test code = 184 mg/dL <=149 H ATP III Cl assification 2571-8) of Serum Trigly cerides Primary Target of Therapy (in mg/dL):<150 Czpdlw852-271 Borderline high 200-499 High>=500 Very highNon-fasting triglycerides > 200 mg/dL may be fo llowed up with a fasti ng Lipid Panel. Calculated LDL- C may be falsely decr eased when non-fastin g triglycerides > 200 mg/dL. HDL (test code = 27 mg/dL >=40 L 2085-07) LDL (test code = 73 mg/dL <=100 ATP III Cla ssification 93334-0) of LDL Choleste rol Primary Target of Therapy (in mg/dL):<100 Ggbyoal950-489 Near optimal/above ocxcpbq671-235 Borderline high 160-189 High>=190 Very high VLDL (test code = 37 mg/dL 31948-4) Lab Interpretation Abnormal (test code = 34722-5) [facility] [id number] 13:23:33 Test Item Value Reference Range Interpretation Comments Chol (test code = 137 mg/dL <=199 ATP III Cl assification 2092-3) of Total Choles terol Primary Target of Therapy (in mg/dL):<200 Yiefzdlwd044-57 9 Borderline high >=240 High Trig (test code = 184 mg/dL <=149 H ATP III Cl assification 2571-8) of Serum Trigly cerides Primary Target of Therapy (in mg/dL):<150 Fpbant657-199 Borderline high 200-499 High>=500 Very highNon-fasting triglycerides > 200 mg/dL may be fo llowed up with a fasti ng Lipid Panel. Calculated LDL- C may be falsely decr eased when non-fastin g triglycerides > 200 mg/dL. HDL (test code = 27 mg/dL >=40 L 2085-07) LDL (test code = 73 mg/dL <=100 ATP III Cla ssification 53681-2) of LDL Choleste rol Primary Target of Therapy (in mg/dL):<100 Nkgxsfg800-751 Near optimal/above -675 Borderline high 160-189 High>=190 Very high VLDL (test code = 37 mg/dL 79955-3) Lab Interpretation Abnormal (test code = 63119-8) [facility] [id number] 13:23:33 Test Item Value Reference Range Interpretation Comments Chol (test code = 137 mg/dL <=199 ATP III Cl assification 2092-3) of Total Choles terol Primary Target of Therapy (in mg/dL):<200 Paukquthe889-89 9 Borderline high >=240 High Trig (test code = 184 mg/dL <=149 H ATP III Cl assification 2571-8) of Serum Trigly cerides Primary Target of Therapy (in mg/dL):<150 Sttyzr755-640 Borderline high 200-499 High>=500 Very highNon-fasting triglycerides > 200 mg/dL may be fo llowed up with a fasti ng Lipid Panel. Calculated LDL- C may be falsely decr eased when non-fastin g triglycerides > 200 mg/dL. HDL (test code = 27 mg/dL >=40 L 2085-9) LDL (test code = 73 mg/dL <=100 ATP III Cla ssification 04702-3) of LDL Choleste rol Primary Target of Therapy (in mg/dL):<100 Mtwbcaq765-569 Near optimal/above qntetqh878-835 Borderline high 160-189 High>=190 Very high VLDL (test code = 37 mg/dL 39324-8) Lab Interpretation Abnormal (test code = 92167-1) [facility] AustinHemoglobin [id number] 12:22:20 Test Item Value Reference Range Interpretation Comments A1C (test code = 4548-4) 10.2 % 4.3-5.6 H HbA 1c values >=6.5% are diagnostic of diabetes mellitus.Diagno sis should be confi rmed by repeat testing.Therape utic Action suggeste d: >8.0% HbA1c; Go al oftherapy: <7.0 % HbA1c Lab Interpretation (test Abnormal code = 43272-3) [facility] AustinHem[facility] [id number] 12:22:20 Test Item Value Reference Range Interpretation Comments A1C (test code = 4548-4) 10.2 % 4.3-5.6 H HbA 1c values >=6.5% are diagnostic of diabetes mellitus.Diagno sis should be confi rmed by repeat testing.Therape utic Action suggeste d: >8.0% HbA1c; Go al oftherapy: <7.0 % HbA1c Lab Interpretation (test Abnormal code = 18470-3) [facility] AustinHemoglobin [id number] 12:22:20 Test Item Value Reference Range Interpretation Comments A1C (test code = 4548-4) 10.2 % 4.3-5.6 H HbA 1c values >=6.5% are diagnostic of diabetes mellitus.Diagno sis should be confi rmed by repeat testing.Therape utic Action suggeste d: >8.0% HbA1c; Go al oftherapy: <7.0 % HbA1c Lab Interpretation (test Abnormal code = 25696-7) [facility]Hem[facility] [id number] 12:22:20 Test Item Value Reference Range Interpretation Comments A1C (test code = 4548-4) 10.2 % 4.3-5.6 H HbA 1c values >=6.5% are diagnostic of diabetes mellitus.Diagno sis should be confi rmed by repeat testing.Therape utic Action suggeste d: >8.0% HbA1c; Go al oftherapy: <7.0 % HbA1c Lab Interpretation (test Abnormal code = 95371-5) [facility]CRP[facility] 17:26:26 Test Item Value Reference Range Interpretation Comments CRP (test code = 65.62 mg/[place] [address]-6) CRP assay are a s follows: Reference range s when used to assess cardi ac risk: <1.00 mg/L Low cardiovascular risk 1.00-3.00 mg/L Average cardiovascular risk >3.00 mg/L High cardi ovascular risk.Reference ranges when used to assess inflammatory re sponses: Less than or eq ual to 10.00 mg/L. [facility]CRP[facility] 17:26:26 Test Item Value Reference Range Interpretation Comments CRP (test code = 65.62 mg/[place] [address]-3) CRP assay are a s follows: Reference range s when used to assess cardi ac risk: <1.00 mg/L Low cardiovascular risk 1.00-3.00 mg/L Average cardiovascular risk >3.00 mg/L High cardi ovascular risk.Reference ranges when used to assess inflammatory re sponses: Less than or eq ual to 10.00 mg/L. [facility] 17:26:26 Test Item Value Reference Range Interpretation Comments CRP (test code = 65.62 mg/[place] [address]-4) CRP assay are a s follows: Reference range s when used to assess cardi ac risk: <1.00 mg/L Low cardiovascular risk 1.00-3.00 mg/L Average cardiovascular risk >3.00 mg/L High cardi ovascular risk.Reference ranges when used to assess inflammatory re sponses: Less than or eq ual to 10.00 mg/L. [facility] 17:26:26 Test Item Value Reference Range Interpretation Comments CRP (test code = 65.62 mg/[place] [address]-8) CRP assay are a s follows: Reference range s when used to assess cardi ac risk: <1.00 mg/L Low cardiovascular risk 1.00-3.00 mg/L Average cardiovascular risk >3.00 mg/L High cardi ovascular risk.Reference ranges when used to assess inflammatory re sponses: Less than or eq ual to 10.00 mg/L. [facility]23-[facility]06 17:14:43 Test Item Value Reference Range Interpretation Comments NT ProBNP (test code = 39356-4) 83 pg/mL <=125 [facility]2023-[facility]-06 17:14:43 Test Item Value Reference Range Interpretation Comments NT ProBNP (test code = 49023-8) 83 pg/mL <=125 [facility]2023-[facility]-06 17:14:43 Test Item Value Reference Range Interpretation Comments NT ProBNP (test code = 36665-1) 83 pg/mL <=125 [facility]2023-02-06 17:14:43 Test Item Value Reference Range Interpretation Comments NT ProBNP (test code = 15229-4) 83 pg/mL <=125 [facility]2023-02-06 06:39:52 Test Item Value Reference Range Interpretation Comments Troponin T (test code 10 ng/L <=19 < 19 n g/L Suggest retest = 53896-3) at 3 to 6 hours later to rule out myocar dial infarction >= 1 9 to <=52 ng/L Possible m yocardial injury. Suggest retest at 3 hours. - a ayan hange of < 20 ng/L, retest at [...] interfere nces and falsely low res ults. [facility]2023-02-06 06:39:52 Test Item Value Reference Range Interpretation Comments Troponin T (test code 10 ng/L <=19 < 19 n g/L Suggest retest = 85691-9) at 3 to 6 hours later to [...] interfere nces and falsely low res ults. [facility]2023-02-06 06:39:52 Test Item Value Reference Range Interpretation Comments Troponin T (test code 10 ng/L <=19 < 19 n g/L Suggest retest = 21586-8) at 3 to 6 hours later to [...] interfere nces and falsely low res ults. [facility]2023-02-06 06:39:52 Test Item Value Reference Range Interpretation Comments Troponin T (test code 10 ng/L <=19 < 19 n g/L Suggest retest = 71538-2) at 3 to 6 hours later to rule out myocar dial infarction >= 1 9 to <=52 ng/L Possible m yocardial injury. Suggest retest at 3 hours. - a c hange of < 20 ng/L, retest at 6 hours - a goff e of >= 20 ng/L, suggestiv e of myocardial inf arction > 52 ng/L Suggest rosales of myocardial infa rction Critical value will be reported when c Tomer is > 52 ng/L and onl y reported for the first i n a series. Hemolyz ed specimens with Hemolysis Index >100 (100 mg/dl or moderate hemoly sis) may cause interfere nces and falsely low res ults. [facility] AustinUrinal[facility] with Microscopic 2023-02-06 05:50:41 Test Item Value Reference Range Interpretation Comments UA Color (test code = [place] Straw-Yellow A 54414-7) UA Appear (test code = Cloudy Clear A 69144-7) UA Glucose (test code 500 mg/dL NEG [...] = NOT SEEN See_Comment Some rep orting 28594-4) parameters with in the Urinalysis test have changed due to the implementation of new instrumentation in the [place], al lowing greater sensiti vity of measurement. Urinalysis resu lts reported by the [facility] using existing instrumentation , as well as Urinaly sis testing perform ed manually or by backup methodology at the [facility] l remain relative ly unchanged. New reporting asha eters and units will not be reported for [facility]. [Auto mated message] The sy stem which generated this result transmit kaylie reference range : 0 - 2 /HPF. The refer ence range was not u sed to interpret this result as normal/abnor mal. UA RBC (test code = 13 See_Comment H [Automa kaylie message] 72754-0) The system [employer] generated this result transmitted ref erence range: 0 - 2 /H PF. The reference range was not used to int erpret this result as normal/abnormal . UA Mucous (test code = NOT SEEN Not Seen-Trace 56219-0) /HPF UA Bacteria (test code NOT SEEN NOT SEEN /HPF = 11720-9) UA Squam Epi (test OCC None-Occasional code = 21052-5) /HPF Lab Interpretation Abnormal (test code = 33161-9) [facility] 2023-02-06 05:50:41 Test Item Value Reference Range Interpretation Comments UA Color (test code = [place] Straw-Yellow A 23492-6) UA Appear (test code = Cloudy Clear A 48453-3) UA Glucose (test code 500 mg/dL NEG [...] = NOT SEEN See_Comment Some rep orting 36686-7) parameters with in the Urinalysis test have changed due to the implementation of new instrumentation in the [place], al lowing greater sensiti vity of measurement. Urinalysis resu lts reported by the [facility] using existing instrumentation , as well as Urinaly sis testing perform ed manually or by backup methodology at the [facility] l remain relative ly unchanged. New reporting [...] = 13 See_Comment H [Automa kaylie message] 67965-0) The system [employer] generated this result transmitted ref erence range: 0 - 2 /H PF. The reference range was not used to int erpret this result as normal/abnormal . UA Mucous (test code = NOT SEEN Not Seen-Trace 78752-8) /HPF UA Bacteria (test code NOT SEEN NOT SEEN /HPF = 69568-8) UA Squam Epi (test OCC None-Occasional code = 36439-6) /HPF Lab Interpretation Abnormal (test code = 91140-0) [facility] 2023-02-06 05:50:41 Test Item Value Reference Range Interpretation Comments UA Color (test code = [place] Straw-Yellow A 63088-4) UA Appear (test code = Cloudy Clear A 81419-2) UA Glucose (test code 500 mg/dL NEG [...] = NOT SEEN See_Comment Some rep orting 07469-9) parameters with in the Urinalysis test have changed due to the implementation of new instrumentation in the [place] greater sensiti vity of measurement. Urinalysis resu lts reported by the [facility] using existing instrumentation , as well as Urinaly sis testing perform ed manually or by backup methodology at the [facility] [place] remain relative ly unchanged. New [...] = 13 See_Comment H [Automa kaylie message] 18715-1) The system [employer] generated this result transmitted ref erence range: 0 - 2 /H PF. The reference range was not used to int erpret this result as normal/abnormal . UA Mucous (test code = NOT SEEN Not Seen-Trace 50116-0) /HPF UA Bacteria (test code NOT SEEN NOT SEEN /HPF = 45011-1) UA Squam Epi (test OCC None-Occasional code = 23398-9) /HPF Lab Interpretation Abnormal (test code = 63619-8) [facility] 2023-02-06 05:50:41 Test Item Value Reference Range Interpretation Comments UA Color (test code = [place] Straw-Yellow A 11622-8) UA Appear (test code = Cloudy Clear A 00741-0) UA Glucose (test code 500 mg/dL NEG [...] = NOT SEEN See_Comment Some rep orting 03295-2) parameters with in the Urinalysis test have changed due to the implementation of new instrumentation in the [place], [facility] [place] greater sensiti vity of measurement. Urinalysis resu lts reported by the [facility] using existing instrumentation , as well as Urinaly sis testing perform ed manually or by backup methodology at the [facility] [place] remain relative ly unchanged. New [...] = 13 See_Comment H [Automa kaylie message] 55200-7) The system [employer] generated this result transmitted ref erence range: 0 - 2 /H PF. The reference range was not used to int erpret this result as normal/abnormal . UA Mucous (test code = NOT SEEN Not Seen-Trace 42600-8) /HPF UA Bacteria (test code NOT SEEN NOT SEEN /HPF = 82900-2) UA Squam Epi (test OCC None-Occasional code = 91936-1) /HPF Lab Interpretation Abnormal (test code = 63527-7) [facility] AustinaPTT[facility] 02:32:47 Test Item Value Reference Range Interpretation Comments aPTT (test code = 28.5 See_Comment [Automate d message] The 90728-9) system which ge nerated this result transmit kaylie reference range : 22.8 - 34.2 second(s). The reference range was not used to interpr et this result as diane l/abnormal. [facility] AustinaPTT[facility] 02:32:47 Test Item Value Reference Range Interpretation Comments aPTT (test code = 28.5 See_Comment [Automate d message] The 84076-3) system which ge nerated this result transmit kaylie reference range : 22.8 - 34.2 second(s). The reference range was not used to interpr et this result as diane l/abnormal. [facility]inaPTT[facility] 02:32:47 Test Item Value Reference Range Interpretation Comments aPTT (test code = 28.5 See_Comment [Automate d message] The 91585-1) system which ge nerated this result transmit kaylie reference range : 22.8 - 34.2 second(s). The reference range was not used to interpr et this result as diane l/abnormal. [facility]PTT[facility] 02:32:47 Test Item Value Reference Range Interpretation Comments aPTT (test code = 28.5 See_Comment [Automate d message] The 02001-7) system which ge nerated this result transmit kaylie reference range : 22.8 - 34.2 second(s). The reference range was not used to interpr et this result as diane l/abnormal. [facility] AustinProthrombin Time with [id number] 02:32:46 Test Item Value Reference Range Interpretation Comments PT (test code = 5902-2) 14.7 See_Comment H [Au tomated message] The system [employer] generated this result transmitted ref erence range: 11.9 - 1 4.1 second(s). The reference range was not used to int erpret this result as normal/abnormal . INR (test code = 6301-6) 1.16 0.89-1.10 H Lab Interpretation (test Abnormal code = 76491-7) [facility] AustinProthrombin Time with [id number] 02:32:46 Test Item Value Reference Range Interpretation Comments PT (test code = 5902-2) 14.7 See_Comment H [Au tomated message] The system [employer] generated this result transmitted ref erence range: 11.9 - 1 4.1 second(s). The reference range was not used to int erpret this result as normal/abnormal . INR (test code = 6301-6) 1.16 0.89-1.10 H Lab Interpretation (test Abnormal code = 84659-2) [facility] AustinProthrombin Time with [id number] 02:32:46 Test Item Value Reference Range Interpretation Comments PT (test code = 5902-2) 14.7 See_Comment H [Au tomated message] The system [employer] generated this result transmitted ref erence range: 11.9 - 1 4.1 second(s). The reference range was not used to int erpret this result as normal/abnormal . INR (test code = 6301-6) 1.16 0.89-1.10 H Lab Interpretation (test Abnormal code = 46621-4) [facility] AustinProthrombin Time with [id number] 02:32:46 Test Item Value Reference Range Interpretation Comments PT (test code = 5902-2) 14.7 See_Comment H [Au tomated message] The system [employer] generated this result transmitted ref erence range: 11.9 - 1 4.1 second(s). The reference range was not used to int erpret this result as normal/abnormal . INR (test code = 6301-6) 1.16 0.89-1.10 H Lab Interpretation (test Abnormal code = 17832-8) [facility] AustinD [id number] 02:32:45 Test Item Value Reference Range Interpretation Comments D-Dimer (test code = 3.04 See_Comment [place] [address]-8) exclusion of ve nous thromboembolism is <0.51 mcg/mL FEUs (fi brinogen equivalent unit s). [Automated mess age] The system which ge nerated this result tra nsmitted reference range : 0.10 - 0.50 mcg/ml FEU . The reference range was not used to interpr et this result as normal/abnormal . Lab Interpretation Abnormal (test code = 47702-6) [facility] Austin[facility] [id number] 02:32:45 Test Item Value Reference Range Interpretation Comments D-Dimer (test code = 3.04 See_Comment H [place] [address]-1) exclusion of ve nous thromboembolism is <0.51 mcg/mL FEUs (fi brinogen equivalent unit s). [Automated mess age] The system which ge nerated this result tra nsmitted reference range : 0.10 - 0.50 mcg/ml FEU . The reference range was not used to interpr et this result as normal/abnormal . Lab Interpretation Abnormal (test code = 04781-3) [facility] [id number] 02:32:45 Test Item Value Reference Range Interpretation Comments D-Dimer (test code = 3.04 See_Comment [place] [address]-3) exclusion of ve nous thromboembolism is <0.51 mcg/mL FEUs (fi brinogen equivalent unit s). [Automated mess age] The system which ge nerated this result tra nsmitted reference range : 0.10 - 0.50 mcg/ml FEU . The reference range was not used to interpr et this result as normal/abnormal . Lab Interpretation Abnormal (test code = 17683-0) [facility] [id number] 02:32:45 Test Item Value Reference Range Interpretation Comments D-Dimer (test code = 3.04 See_Comment H [place] [address]-2) exclusion of ve nous thromboembolism is <0.51 mcg/mL FEUs (fi brinogen equivalent unit s). [Automated mess age] The system which ge nerated this result tra nsmitted reference range : 0.10 - 0.50 mcg/ml FEU . The reference range was not used to interpr et this result as normal/abnormal . Lab Interpretation Abnormal (test code = 96257-1) [facility] Pbqgsuu2626-02-14 01:31:58 Test Item Value Reference Range Interpretation Comments V Lactate (test code = 2519-7) 1.2 mmol/L 0.5-1.6 [facility] [id number] 01:31:58 Test Item Value Reference Range Interpretation Comments V Lactate (test code = 2519-7) 1.2 mmol/L 0.5-1.6 [facility] Geujrch6274-39-84 01:31:58 Test Item Value Reference Range Interpretation Comments V Lactate (test code = 2519-7) 1.2 mmol/L 0.5-1.6 [facility] [id number] 01:31:58 Test Item Value Reference Range Interpretation Comments V Lactate (test code = 2519-7) 1.2 mmol/L 0.5-1.6 [facility] (SARS-CoV-2)Vzdqftjddvli-OA0698-12-07 23:01:01 Test Item Value Reference Range Interpretation Comments COVID19 Not Detected Not Detected (SARS-CoV-2) (test code = 50525-8) COVID19 SARS Inpatient Indication (test Admission code = 64557) Covid 19 Comment See Note The ruby S ARS-CoV-2 (test code = [place] [address]) use on the jeanne s Chastity System [...] sheet for patie nts provided by the surface logging systems logger ([employer]) can be rev iewed at: https://www.[employer] .gov/m edia/380929/otf nload. A fact sheet fo Health Care pro viders is provided by the surface logging systems logger ([employer]) and can be reviewed at: https://www.fda .gov/m edia/311393/otf nload Results must be interpreted wit hin [...] high-comple xity tests. The Microbiology Laboratory at [facility], CLIA Accreditation #[id number] and CAP Accreditation #[id number], verif ied the performance characteristics of this assay. Int ernal controls are us ed to monitor all sta ges of the test proces s. [facility] (SARS-CoV-2)Ruedmjcxdxot-WO3719-40-07 23:01:01 Test Item Value Reference Range Interpretation Comments COVID19 Not Detected Not Detected (SARS-CoV-2) (test code = 79518-5) COVID19 SARS Inpatient Indication (test Admission code = 63039) Covid 19 Comment See Note The ruby S ARS-CoV-2 (test code = [place] [address]) use on the jeanne s Chastity System [...] sheet for patie nts provided by the surface logging systems logger ([employer]) can be rev iewed at: https://www.[employer] .gov/m edia/282231/otf nload. A fact sheet fo Health Care pro viders is provided by the surface logging systems logger ([employer]) and can be reviewed at: https://www.fda .gov/m edia/485353/otf nload Results must be interpreted wit hin [...] high-comple xity tests. The Microbiology Laboratory at [facility], CLIA Accreditation #[id number] and CAP Accreditation #[id number], verif ied the performance characteristics of this assay. Int ernal controls are us ed to monitor all sta ges of the test proces s. [facility] (SARS-CoV-2)Kxwpspgbugxx-YP2174-59-07 23:01:01 Test Item Value Reference Range Interpretation Comments COVID19 Not Detected Not Detected (SARS-CoV-2) (test code = 40488-6) COVID19 SARS Inpatient Indication (test Admission code = 52179) Covid 19 Comment See Note The ruby S ARS-CoV-2 (test code = [place] [address]) use on the jeanne s Chastity System [...] sheet for patie nts provided by the surface logging systems logger ([employer]) can be rev iewed at: https://www.fda .gov/m edia/908046/tof nload. A fact sheet fo Health Care pro viders is provided by the surface logging systems logger ([employer]) and can be reviewed at: https://www.fda .gov/m edia/303914/otf nload Results must be interpreted wit hin [...] is assay has been authorized by t [facility] for use only un teetee Emergency Use Authorization ( EUA) in laboratories that have been CLIA-certified to perform moderate-comple xity and high-comple xity tests. The Microbiology Laboratory at [facility], CLIA Accreditation #[id number] and CAP Accreditation #[id number], verif ied the performance characteristics of this assay. Int ernal controls are us ed to monitor all sta ges of the test proces s. [facility] (SARS-CoV-2)Qrbtrhmhgmnz-DI0945-37-07 23:01:01 Test Item Value Reference Range Interpretation Comments COVID19 Not Detected Not Detected (SARS-CoV-2) (test code = 39345-7) COVID19 SARS Inpatient Indication (test Admission code = 51558) Covid 19 Comment See Note The ruby S ARS-CoV-2 (test code = [place] [address]) use on the jeanne s Chastity System [...] sheet for patie nts provided by the surface logging systems logger ([employer], [employer]) can be rev iewed at: https://www.fda .gov/m edia/244254/otf nload. A fact sheet fo r Health Care pro viders is provided by the surface logging systems logger ([employer]) and can be reviewed at: https://www.fda .gov/m edia/329664/otf nload Results must be interpreted wit hin [...] high-comple xity tests. The Microbiology Laboratory at [facility], CLIA Accreditation #[id number] and CAP Accreditation #[id number], verif ied the performance characteristics of this assay. Int ernal controls are us ed to monitor all sta ges of the test proces s. [facility] AustinCKMB2023-04-07 21:13:54CK MB<2.0<=5.3 ng/mLUT [facility]ENTERUn[facility] HospitalCKMB2023-04-07 21:13:54CK MB<2.0<=5.3 ng/mLUT [facility]ENTERUn[facility] HospitalCKMB 2023-02-05 21:13:54CK MB<2.0<=5.3 ng/mLUT [facility]2023-04-07 21:13:54CK MB<2.0<=5.3 ng/mLUT [facility]ENTERUn[facility] HospitalLipase2023-04-07 21:08:09 Test Item Value Reference Range Interpretation Comments Lipase Lvl (test code = 3040-3) 18 U/L [facility] AustinLipase2023-04-07 21:08:09 Test Item Value Reference Range Interpretation Comments Lipase Lvl (test code = 3040-3) 18 U/L [facility] AustinLipase2023-04-07 21:08:09 Test Item Value Reference Range Interpretation Comments Lipase Lvl (test code = 3040-3) 18 U/L - [facility] AustinLipase2023-04-07 21:08:09 Test Item Value Reference Range Interpretation Comments Lipase Lvl (test code = 3040-3) 18 U/L 60 [facility] AustinAmylase [id number] 21:08:08 Test Item Value Reference Range Interpretation Comments Amylase Lvl (test code = 1798-8) 43 U/L 28-100 [facility] AustinAmylase [id number] 21:08:08 Test Item Value Reference Range Interpretation Comments Amylase Lvl (test code = 1798-8) 43 U/L 28-100 [facility] AustinAmylase Ediux0525-50-60 21:08:08 Test Item Value Reference Range Interpretation Comments Amylase Lvl (test code = 1798-8) 43 U/L 28-100 [facility] AustinAmylase Mtkyc6144-81-03 21:08:08 Test Item Value Reference Range Interpretation Comments Amylase Lvl (test code = 1798-8) 43 U/L 28-100 [facility] AustinHematocrit2023-03-30 13:50:44 Test Item Value Reference Range Interpretation Comments Hct (test code = 4544-3) 40.6 % 37.0-47.0 [facility] AustinHematocrit2023-03-30 13:50:44 Test Item Value Reference Range Interpretation Comments Hct (test code = 4544-3) 40.6 % 37.0-47.0 [facility] AustinHematocrit2023-03-30 13:50:44 Test Item Value Reference Range Interpretation Comments Hct (test code = 4544-3) 40.6 % 37.0-47.0 [facility] AustinHematocrit2023-03-30 13:50:44 Test Item Value Reference Range Interpretation Comments Hct (test code = 4544-3) 40.6 % 37.0-47.0 [facility] AustinHemoglobin2023-03-30 13:50:43 Test Item Value Reference Range Interpretation Comments Hgb (test code = 13.3 See_Comment [Automated message] The 06-07) system which ge nerated this result transmit kaylie reference range : 12.0 - 16.0 gm/dL. The reference range was not u sed to interpret this result as normal/abnormal . [facility] AustinHemoglobin2023-03-30 13:50:43 Test Item Value Reference Range Interpretation Comments Hgb (test code = 13.3 See_Comment [Automated message] The ) system which ge nerated this result transmit kaylie reference range : 12.0 - 16.0 gm/dL. The reference range was not u sed to interpret this result as normal/abnormal . [facility] AustinHemoglobin2023-03-30 13:50:43 Test Item Value Reference Range Interpretation Comments Hgb (test code = 13.3 See_Comment [Automated message] The ) system which ge nerated this result transmit kaylie reference range : 12.0 - 16.0 gm/dL. The reference range was not u sed to interpret this result as normal/abnormal . [facility] AustinHemoglobin2023-03-30 13:50:43 Test Item Value Reference Range Interpretation Comments Hgb (test code = 13.3 See_Comment [Automated message] The ) system which ge nerated this result transmit kaylie reference range : 12.0 - 16.0 gm/dL. The reference range was not u sed to interpret this result as normal/abnormal . [facility] AustinTetrahydocannabinol (THC), Quantitative, [id number] 19:13:38 Test Item Value Reference Range Interpretation Comments U THC GC/MS-Lamar n/a (test code = 7812) U THC Inter-Lamar see note Carboxy-TH C Confirmation, (test code [...] ng/mLReference Value: Cutoff: 5 ======PERFORMIN G LAB:SDL [facility] [address] [address] Moe Guzman M.D. Ph.D. [id number] U THC [facility] n/a (test code = 7811) [facility] AustinTetrahydocannabinol (THC), Quantitative, [id number] 19:13:38 Test Item Value Reference Range Interpretation Comments U THC GC/MS-Lamar n/a (test code = 7812) U THC [facility] see note Carboxy-TH C Confirmation, (test code = 7813) U: Carbox y-THC Interpretation: Positive ADDITIONAL INFO RMATION:This report is inten ded for use in clinical mon [facility] andmanagement o f patients. It is not inten ded for use inemployment-re lated testing.------- ------Delta- 8 Carboxy-Tetrahy drocannabino l by LC-MS/MS: 672 ng/mLReference Value: Cutoff: 5 Delta -9 Carboxy-Tetrahy drocannabino l by LC-MS/MS: 42 ng/mLReference Value: Cutoff: 5 ======MIGUELINAIN G LAB:[facility] [address] [address] 33 Moe Guzman M.D. Ph.D. [id number] U THC [facility] n/a (test code = 7811) [facility] WindberTetrahydocannabinol (THC), Quantitative, [id number] 19:13:38 Test Item Value Reference Range Interpretation Comments [facility] (test code = 7812) U THC [facility] see note Carboxy-TH C Confirmation, (test code [...] 42 ng/mLReference Value: Cutoff: 5 ======PERFORMIN G LAB:[facility] [address] Moe Guzman M.D. Ph.D. [id number] U THC [facility] n/a (test code = 7811) [facility] WindberTetrahydocannabinol (THC), Quantitative, [id number] 19:13:38 Test Item Value Reference Range Interpretation Comments U THC GC/MS-Lamar n/a (test code = 7812) U THC [facility] see note Carboxy-TH C Confirmation, (test code [...] ng/mLReference Value: Cutoff: 5 ======PERFORMIN G LAB:SDL [facility] Lab oratories [facility] [address] [facility] [address]05 Moe Guzman M.D. Ph.D. [id number] U THC [facility] n/a (test code = 7811) [facility] WindberUrinalysis Microscopic Exam 2023-01-27 04:26:48 Test Item Value Reference Range Interpretation Comments UA WBC (test code = 6 See_Comment H Some rep orting 43774-5) parameters with in the Urinalysis test have changed due to the implementation of new instrumentation in the [facility] [place], [facility] greater sensiti vity of measurement. Urinalysis resu lts reported by the [facility] enters using existing instrumentation , as well as Urinaly sis testing perform ed manually or by backup methodology at the [facility] [place] chino l remain relative ly unchanged. New reporting asha eters and units will not be reported for al l campuses. [Auto mated message] The sy stem which generated this result transmit kaylie reference range : 0 - 2 /HPF. The refer ence range was not u sed to interpret this result as normal/abnor mal. UA RBC (test code = See_Comment [Automa kaylie message] 95468-5) The system whic h generated this result transmitted ref erence range: 0 - 2 /H PF. The reference range was not used to int erpret this result as normal/abnormal . UA Mucous (test code = NOT SEEN Not Seen-Trace 31565-4) /HPF UA Bacteria (test code NOT SEEN NOT SEEN /HPF = 70611-1) UA Squam Epi (test OCC None-Occasional code = 33525-2) /HPF Lab Interpretation Abnormal (test code = 08842-5) [facility] Austin[facility] Microscopic Exam 2023-01-27 04:26:48 Test Item Value Reference Range Interpretation Comments UA WBC (test code = 6 See_Comment H Some rep orting 62110-5) parameters with in the Urinalysis test have changed due to the implementation of new instrumentation in the [facility], al lowing greater sensiti vity of measurement. Urinalysis resu lts reported by the [facility] enters using existing instrumentation , as well as Urinaly sis testing perform ed manually or by backup methodology at the [facility] chino l remain relative ly unchanged. New reporting asha eters and units will not be reported for [facility] campuses. [Auto mated message] The sy stem which generated this result transmit kaylie reference range : 0 - 2 /HPF. The refer ence range was not u sed to interpret this result as normal/abnor mal. UA RBC (test code = See_Comment [Automa kaylie message] 84587-3) The system [employer] generated this result transmitted ref erence range: 0 - 2 /H PF. The reference range was not used to int erpret this result as normal/abnormal . UA Mucous (test code = NOT SEEN Not Seen-Trace 30893-5) /HPF UA Bacteria (test code NOT SEEN NOT SEEN /HPF = 98390-5) UA Squam Epi (test OCC None-Occasional code = 66717-9) /HPF Lab Interpretation Abnormal (test code = 70593-6) [facility] AustinUrinalysis Microscopic Exam 2023-01-27 04:26:48 Test Item Value Reference Range Interpretation Comments UA WBC (test code = 6 See_Comment H Some rep orting 64693-0) parameters with in the Urinalysis test have changed due to the implementation of new instrumentation in the [facility] [place], al lowing greater sensiti vity of measurement. Urinalysis resu lts reported by the [facility] enters using existing instrumentation , as well as Urinaly sis testing perform ed manually or by backup methodology at the [facility] chino l remain relative ly unchanged. New reporting asha eters and units will not be reported for [facility]. [Auto mated message] The sy stem which generated this result transmit kaylie reference range : 0 - 2 /HPF. The refer ence range was not u sed to interpret this result as normal/abnor mal. UA RBC (test code = See_Comment [Automa kaylie message] 45779-9) The system [employer] generated this result transmitted ref erence range: 0 - 2 /H PF. The reference range was not used to int erpret this result as normal/abnormal . UA Mucous (test code = NOT SEEN Not Seen-Trace 03101-5) /HPF UA Bacteria (test code NOT SEEN NOT SEEN /HPF = 04623-4) UA Squam Epi (test OCC None-Occasional code = 03820-7) /HPF Lab Interpretation Abnormal (test code = 01236-0) [facility] Austin[facility] Microscopic Exam 2023-01-27 04:26:48 Test Item Value Reference Range Interpretation Comments UA WBC (test code = 6 See_Comment H Some rep orting 18996-7) parameters with in the Urinalysis test have changed due to the implementation of new instrumentation in the [facility], [facility] greater sensiti vity of measurement. Urinalysis resu lts reported by the [facility] enters using existing instrumentation , as well as Urinaly sis testing perform ed manually or by backup methodology at the [facility] chino l remain relative ly unchanged. New reporting asha eters and units will not be reported for [facility] campuses. [Auto mated message] The sy stem which generated this result transmit kaylie reference range : 0 - 2 /HPF. The refer ence range was not u sed to interpret this result as normal/abnor mal. UA RBC (test code = See_Comment [Automa kaylie message] 48979-0) The system [employer] generated this result transmitted ref erence range: 0 - 2 /H PF. The reference range was not used to int erpret this result as normal/abnormal . UA Mucous (test code = NOT SEEN Not Seen-Trace 14364-8) /HPF UA Bacteria (test code NOT SEEN NOT SEEN /HPF = 85368-9) UA Squam Epi (test OCC None-Occasional code = 21737-5) /HPF Lab Interpretation Abnormal (test code = 81385-9) [facility] AustinUrinalysis w/Microscopic if [id number] 03:58:37 Test Item Value Reference Range Interpretation Comments UA Color (test code = 08220-8) Straw Straw-Yellow UA Appear (test code = 16584-2) Clear Clear UA Glucose (test code = [...] NEG Lab Interpretation (test code = Abnormal 73186-4) [facility] AustinUrinalysis w/Microscopic if [id number] 03:58:37 Test Item Value Reference Range Interpretation Comments UA Color (test code = 10286-1) Straw Straw-Yellow UA Appear (test code = 93810-4) Clear Clear UA Glucose (test code = [...] NEG Lab Interpretation (test code = Abnormal 94138-6) [facility] AustinUrinalysis w/Microscopic if Shggjvyuv5683-57-94 03:58:37 Test Item Value Reference Range Interpretation Comments UA Color (test code = 07397-3) Straw Straw-Yellow UA Appear (test code = 09282-3) Clear Clear UA Glucose (test code = [...] NEG Lab Interpretation (test code = Abnormal 46698-7) [facility] AustinUrinalysis w/Microscopic if Czzhypjbz2996-70-82 03:58:37 Test Item Value Reference Range Interpretation Comments UA Color (test code = 28097-5) Straw Straw-Yellow UA Appear (test code = 54980-8) Clear Clear UA Glucose (test code = [...] NEG Lab Interpretation (test code = Abnormal 01141-7) [facility] AustinLDH2023-03-28 20:38:14 Test Item Value Reference Range Interpretation Comments LDH (test code = 289 U/L 135-214 H Results gre ater than 55953-1) 1651 U/L may no t be reliable due to matrix effect w ith extended diluti on as it exceeds the surface logging systems logger's recommended goldberg it. Caution should be exercised when interpreting agarwal ch values and done in conjunction wit h clinical contex t. Lab Interpretation (test Abnormal code = 20244-7) [facility] AustinLDH2023-[facility]-28 20:38:14 Test Item Value Reference Range Interpretation Comments LDH (test code = 289 U/L 135-214 H Results gre ater than 21663-8) 1651 U/L may no t be reliable due to matrix effect w ith extended diluti on as it exceeds the surface logging systems logger's recommended goldberg it. Caution should be exercised when interpreting agarwal ch values and done in conjunction [facility] clinical contex t. Lab Interpretation (test Abnormal code = 79110-7) [facility] AustinLDH2023-[facility]-28 20:38:14 Test Item Value Reference Range Interpretation Comments LDH (test code = 289 U/L 135-214 H Results gre ater than 73608-9) 1651 U/L may no t be reliable due to matrix effect w ith extended diluti on as it exceeds the surface logging systems logger's recommended goldberg it. Caution should be exercised when interpreting agarwal ch values and done in conjunction [facility] [employer] t. Lab Interpretation (test Abnormal code = 30058-0) [facility] AustinLDH2023-[facility]-28 20:38:14 Test Item Value Reference Range Interpretation Comments LDH (test code = 289 U/L 135-214 H Results gre ater than 04901-3) 1651 U/L may no t be reliable due to matrix effect w ith extended diluti on as it exceeds the surface logging systems logger's recommended goldberg it. Caution should be exercised when interpreting agarwal ch values and done in conjunction [facility] clinical [employer] t. Lab Interpretation (test Abnormal code = 12081-4) [facility] AustinControlled Substance Monitoring Panel, Eoxgp4035-55-30 09:20:34 Test Item Value Reference Interpretation Comments Range Urine Creatinine 55.1 mg/dL (test code = 2161-8) Urine Specific 1.014 [place] (test code = 5810-7) Urine Ph (test 6.2 code = 2756-5) Urine Oxidants Negative Cutoff: 200 (test code = mg/L 08248-2) Urine Comment Normal (test code = 82497-0) U Negative Cutoff: 200 Barbiturates-Luu ng/mL (test code = 37183-8) U Cocaine Lvl-Luu Negative Cutoff: 150 This coca ine immunoassay (test code = ng/mL targets benzoyl ecgonine 26774-0) theprimary meta bolite of cocaine. U THC-Lamar (test See Cutoff: 50 A RESULT: Pre sumptive code = 98790-4) Footnote ng/mL PositiveThis immunoassay targets delta-9 tetrahydrocanna [...] code Not Cutoff: 25 Tylenol 3 = 81914-7) Detected ng/mL Xgklwko-7-xsud-glu Not Cutoff: 100 Metabolit e of codeine curonide (test Detected ng/mL code = 72105-9) Morphine (test Not Cutoff: 25 Gayle Mary n, MS Contin; Also code = 73019-8) Detected ng/mL a minor meta bolite (10%) ofcodeine and c an be seen in low concentrati ons (<2,000ng/mL) w ith poppy seed ingestion. Jgpeptcg-5-tswe-gl Not Cutoff: 100 Metabolit e of morphine ucuronide (test Detected ng/mL code = 73988-8) 6-monoacetylmorphi Not Cutoff: 25 Metabolit e of heroin ne (test code = Detected ng/mL 29289-8) Hydrocodone (test Not Cutoff: 25 Lortab, No rco, Vicodin; Also a code = 76961-5) Detected ng/mL very minor m etabolite ofcodeine and impurity (< 1%) of oxycodone. Norhydrocodone Not Cutoff: 25 Metabolite of hydrocodone (test code = Detected ng/mL 49837-1) Dihydrocodeine Not Cutoff: 25 Metabolite of hydrocodone (test code = Detected ng/mL 72421-3) Hydromorphone Not Cutoff: 25 Dilaudid, Exal go; Also a (test code = Detected ng/mL metabolite of h ydrocodone and 77431-8) aminor (<5%) me tabolite of morphine. Odzqfoehakplg-6-eu Not Cutoff: 100 Metabolit e of hydromorphone ta-glucuronide Detected ng/mL (test code = 05020-0) Oxycodone (test Present Cutoff: 25 A Endocet, Per cocet, Oxycontin code = 81404-0) ng/mL Noroxycodone (test Present Cutoff: 25 A Metabolit e of oxycodone code = 34454-4) ng/mL Oxymorphone (test Not Cutoff: 25 Numorphan, Opana; Also a code = 17665-7) Detected ng/mL metabolite o f oxycodone. Urehgevxskz-9-hjww Not Cutoff: 100 Metabolit e of oxymorphone -glucuronide (test Detected ng/mL and/or na loxone (nornaloxone) code = 31428-9) Noroxymorphone Present Cutoff: 25 A Metabolite of oxymorphone (test code = ng/mL and/or naloxone (nornaloxone) 12311-4) Fentanyl (test Not Cutoff: 2 Actiq, Durage sic, [place]ora code = 96441-8) Detected ng/mL Norfentanyl (test Not Cutoff: 2 Metabolite of fentanyl code = 82552-4) Detected ng/mL Meperidine (test Not Cutoff: 25 Demerol code = 86711-1) Detected ng/mL Normeperidine Not Cutoff: 25 Metabolite of meperidine (test code = Detected ng/mL 16016-1) Naloxone (test Not Cutoff: 25 Narcan code = 79380-2) Detected ng/mL Rmlushlk-4-htbz-gl Not Cutoff: 100 Metabolit e of naloxone ucuronide (test Detected ng/mL code = 87446-8) U Methadone (test Not Cutoff: 25 Dolophine code = 56984-8) Detected ng/mL EDDP (test code = Not Cutoff: 25 Metabolite of methadone 53237-5) Detected ng/mL Propoxyphene (test Not Cutoff: 25 Darvon, D arvocet code = 25666-8) Detected ng/mL Norpropoxyphene Not Cutoff: 25 Metabolite o f propoxyphene (test code = Detected ng/mL 40391-1) Tramadol (test Not Cutoff: 25 Tradol, Ultra m, Ultracet code = 45645-5) Detected ng/mL O-desmethyltramado Not Cutoff: 25 Metabolit e of tramadol l (test code = Detected ng/mL 07022-3) Tapentadol (test Not Cutoff: 25 Nucynta code = 75232-3) Detected ng/mL Pmvwqjzfqp-znux-cy Not Cutoff: 100 Metabolit e of tapentadol ucuronide (test Detected ng/mL code = 63566-3) Buprenorphine Not Cutoff: 5 Buprenex, Subo xone (test code = Detected ng/mL 80453-4) Norbuprenorphine Not Cutoff: 5 Metabolite of buprenorphine (test code = Detected ng/mL 70485-4) Norbuprenorphine Not Cutoff: 20 Metabolite of buprenorphine Glucuronide (test Detected ng/mL code = 12391-0) Benzodiazepine See Test detected the presence of Interp Urine (test Footnote alprazola m and two of code = 15494-7) itsmetabolit es (alpha-hydroxya lprazolam andalpha-hydrox yalprazolam glucuronide). S uspect use ofalprazolam wi thin the past three days. Hailey t detected the presence of zol pidem klvyco-5-gwmxkc ylicacid (metabolite of zolpidem) only. Suspect use of zolpidemwithin the past four d ays. ----ADDITIONAL INFORMATION---- T his test was de veloped and its performance characteristics determined by [facility] in a manner consistent with CLIArequirement s. This test has not been cleare d or approved bythe U.S. Food and Drug Administration. Alprazolam Urine Present Cutoff: 10 A Xanax (test code = ng/mL 54408-2) Alpha-Hydroxyalpra Present Cutoff: 10 A Metabolit e of Alprazolam zolam Urine (test ng/mL code = 84251-0) Alpha-Hydroxyalpra Present Cutoff: 50 A Metabolit e of Alprazolam zolam Glucuronide ng/mL Urine (test code = 97154-6) Chlordiazepoxide Not Cutoff: 10 Librium Urine (test code = Detected ng/mL 18029-3) Colbazam Urine Not Cutoff: 10 Frisium, Onfi (test code = Detected ng/mL 09591-8) N-Desmethylclobaza Not Cutoff: 200 Metabolit e of Clobazam m Urine (test code Detected ng/mL = 58745-6) Clonazepam Urine Not Cutoff: 10 Klonopin, R ivotril (test code = Detected ng/mL 56450-5) 7-Aminoclonazepam Not Cutoff: 10 Metabolite of Clonazepam Urine (test code = Detected ng/mL 72402-6) Diazepam Urine Not Cutoff: 10 Valium (test code = Detected ng/mL 03146-9) Nordiazepam Urine Not Cutoff: 10 Metabolite of Chlordiazepoxide, (test code = Detected ng/mL Diazepam, or Pr azepam. 94870-7) Flunitrazepam Not Cutoff: 10 Rohypnol Urine (test code = Detected ng/mL 91777-7) 7-Aminoflunitrazep Not Cutoff: 10 Metabolit e of Flunitrazepam am Urine (test Detected ng/mL code = 82806-8) FlUrinerazepam Not Cutoff: 10 Dalmane Urine (test code = Detected ng/mL 96846-1) 2-Hydroxy Ethyl Not Cutoff: 10 Metabolite o f Flurazepam Flurazepam Urine Detected ng/mL (test code = 90039-9) Lorazepam Urine Not Cutoff: 10 Ativan (test code = Detected ng/mL 00908-3) Lorazepam Not Cutoff: 50 Metabolite of L orazepam Glucuronide Urine Detected ng/mL (test code = 73195-3) Midazolam Urine Not Cutoff: 10 Versed (test code = Detected ng/mL 63914-5) Alpha-Hydroxy Not Cutoff: 10 Metabolite of Midazolam Midazolam Urine Detected ng/mL (test code = 62324-1) Oxazepam Urine Not Cutoff: 10 Serax; Also a metabolite of (test code = Detected ng/mL Chlordiazepoxid e, Diazepam, 62664-6) orTemazepam. Oxazepam Not Cutoff: 50 Metabolite of O xazepam Glucuronide Urine Detected ng/mL (test code = 79101-7) Prazepam Urine Not Cutoff: 10 Centrax (test code = Detected ng/mL 93525-7) Temazepam Urine Not Cutoff: 10 Restoril; Al so a metabolite of (test code = Detected ng/mL Diazepam. 17302-0) Temazepam Not Cutoff: 50 Metabolite of T emazepam Glucuronide Urine Detected ng/mL (test code = 57388-8) Triazolam Urine Not Cutoff: 10 Halcion (test code = Detected ng/mL 65451-2) Alpha-Hydroxy Not Cutoff: 10 Metabolite of Triazolam Triazolam Urine Detected ng/mL (test code = 73123-3) Zolpidem Urine Not Cutoff: 10 Ambien (test code = Detected ng/mL 57839-8) Zolpidem Present Cutoff: 10 A Metabolite of Z olpidem Rwuzl-6-Osmvrzedwd ng/mL Acid Urine (test code = 94168-0) Methamphetamine Not Cutoff: 100 Desoxyn (test code = Detected ng/mL 23572-8) Amphetamine (test Not Cutoff: 100 Dyanavel X R, Adzenys ER, code = 94426-2) Detected ng/mL Adderall, Vy vanse; Also ametabolite of methamphetamine 3,4-Methylenedioxy Not Cutoff: 100 methamphetamine Detected ng/mL (MDMA) (test code = 86829-6) 3,4-Methylenedioxy Not Cutoff: 100 -N-Ethylamphetamin Detected ng/mL e (MDEA) (test code = 16690-6) 3,4-Methylenedioxy Not Cutoff: 100 Also a me tabolite of MDMA amphetamine (MDA) Detected ng/mL and/or MDE A (test code = 55189-6) Ephedrine (test Not Cutoff: 100 code = 13535) Detected ng/mL Pseudoephedrine Present Cutoff: 100 A Sudafed (test code = ng/mL 69457) Phentermine (test Not Cutoff: 100 Adipex-P, Lomaira, Qsymia code = 87610-6) Detected ng/mL Phencyclidine Not Cutoff: 20 (PCP) (test code = Detected ng/mL ) Methylphenidate Not Cutoff: 20 Ritalin, Con certa (test code = Detected ng/mL 03827-6) Ritalinic acid Not Cutoff: 100 Metabolite of methylphenidate (test code = Detected ng/mL 20279) Stimulant See Test detected t he presence of Interpretation Footnote pseudoephedri ne. Suspect useof (test code = pseudoephedrine within the past 87744-6) three days. ----ADDITIONAL INFORMATION---- T his test was de veloped and its performance characteristics determined by [facility] in a manner consistent with Letiment s. This test has not been cleare d or approved bythe U.S. Food and Drug Administration. [facility] [id number] [place], [place] [address]Mpv Dir ronnie: Moe Guzman M.D. Ph.D.; CLIA# [id number] Patients Current NOT ---------ADDITIONAL Medications (test ANSWERED INFORMATIO N A code = 31949-9) ccuracy and completeness of declared medica tions onreports solely dependen t on information submitted bycli ent. Lab Interpretation Abnormal (test code = 28657-4) [facility], [id number] 09:20:34 Test Item Value Reference Interpretation Comments Range Urine Creatinine 55.1 mg/dL (test code = 2161-8) Urine Specific 1.014 [place] (test code = 5810-7) Urine Ph (test 6.2 code = 2756-5) Urine Oxidants Negative Cutoff: 200 (test code = mg/L 91300-4) Urine Comment Normal (test code = 01639-4) U Negative Cutoff: 200 Barbiturates-Lamar ng/mL (test code = 74596-4) U Cocaine Lvl-Lamar Negative Cutoff: 150 This coca ine immunoassay (test code = ng/mL targets benzoyl ecgonine 77282-3) theprimary meta bolite of cocaine. U THC-Luu (test See Cutoff: 50 A RESULT: Pre sumptive code = 65518-4) Footnote ng/mL PositiveThis immunoassay targets delta-9 tetrahydrocanna [...] code Not Cutoff: 25 Tylenol 3 = 20756-4) Detected ng/mL Migvblt-4-mhrf-glu Not Cutoff: 100 Metabolit e of codeine curonide (test Detected ng/mL code = 96230-0) Morphine (test Not Cutoff: 25 Gayle Mary n, MS Contin; Also code = 79225-6) Detected ng/mL a minor meta bolite (10%) ofcodeine and c an be seen in low concentrati ons (<2,000ng/mL) w ith poppy seed ingestion. Dwjsolaf-5-xndt-gl Not Cutoff: 100 Metabolit e of morphine ucuronide (test Detected ng/mL code = 50816-9) 6-monoacetylmorphi Not Cutoff: 25 Metabolit e of heroin ne (test code = Detected ng/mL 97915-8) Hydrocodone (test Not Cutoff: 25 Lortab, No rco, Vicodin; Also a code = 59439-6) Detected ng/mL very minor m etabolite ofcodeine and impurity (< 1%) of oxycodone. Norhydrocodone Not Cutoff: 25 Metabolite of hydrocodone (test code = Detected ng/mL 68410-1) Dihydrocodeine Not Cutoff: 25 Metabolite of hydrocodone (test code = Detected ng/mL 93777-1) Hydromorphone Not Cutoff: 25 Dilaudid, Exal go; Also a (test code = Detected ng/mL metabolite of h ydrocodone and 85889-3) aminor (<5%) me tabolite of morphine. Thnbbsmbtqvns-6-rq Not Cutoff: 100 Metabolit e of hydromorphone ta-glucuronide Detected ng/mL (test code = 71505-0) Oxycodone (test Present Cutoff: 25 A Endocet, Per cocet, Oxycontin code = 34440-3) ng/mL Noroxycodone (test Present Cutoff: 25 A Metabolit e of oxycodone code = 11167-1) ng/mL Oxymorphone (test Not Cutoff: 25 Numorphan, Opana; Also a code = 02039-6) Detected ng/mL metabolite o f oxycodone. Slhvkphfuaw-2-swjk Not Cutoff: 100 Metabolit e of oxymorphone -glucuronide (test Detected ng/mL and/or na loxone (nornaloxone) code = 76759-9) Noroxymorphone Present Cutoff: 25 A Metabolite of oxymorphone (test code = ng/mL and/or naloxone (nornaloxone) 29382-0) Fentanyl (test Not Cutoff: 2 Actiq, Durage sic, Fentora code = 94203-8) Detected ng/mL Norfentanyl (test Not Cutoff: 2 Metabolite of fentanyl code = 45685-2) Detected ng/mL Meperidine (test Not Cutoff: 25 Demerol code = 62262-7) Detected ng/mL Normeperidine Not Cutoff: 25 Metabolite of meperidine (test code = Detected ng/mL 73112-4) Naloxone (test Not Cutoff: 25 Narcan code = 38179-7) Detected ng/mL Veiceqoo-9-wtcb-gl Not Cutoff: 100 Metabolit e of naloxone ucuronide (test Detected ng/mL code = 78637-5) U Methadone (test Not Cutoff: 25 Dolophine code = 73594-8) Detected ng/mL EDDP (test code = Not Cutoff: 25 Metabolite of methadone 94484-3) Detected ng/mL Propoxyphene (test Not Cutoff: 25 Darvon, D arvocet code = 32588-7) Detected ng/mL Norpropoxyphene Not Cutoff: 25 Metabolite o f propoxyphene (test code = Detected ng/mL 11562-2) Tramadol (test Not Cutoff: 25 Tradol, Ultra m, Ultracet code = 90802-2) Detected ng/mL O-desmethyltramado Not Cutoff: 25 Metabolit e of tramadol l (test code = Detected ng/mL 92754-6) Tapentadol (test Not Cutoff: 25 Nucynta code = 73058-1) Detected ng/mL Russredntt-xulm-tk Not Cutoff: 100 Metabolit e of tapentadol ucuronide (test Detected ng/mL code = 43075-9) Buprenorphine Not Cutoff: 5 Buprenex, Subo xone (test code = Detected ng/mL 25298-9) Norbuprenorphine Not Cutoff: 5 Metabolite of buprenorphine (test code = Detected ng/mL 81959-7) Norbuprenorphine Not Cutoff: 20 Metabolite of buprenorphine Glucuronide (test Detected ng/mL code = 23666-7) Benzodiazepine See Test detected the presence of Interp Urine (test Footnote alprazola m and two of code = 30106-9) itsmetabolit es (alpha-hydroxya lprazolam andalpha-hydrox yalprazolam glucuronide). S uspect use ofalprazolam wi thin the past three days. Hailey t detected the presence of zol pidem exzndc-9-rndbuc ylicacid (metabolite of zolpidem) only. Suspect use of zolpidemwithin the past four d ays. ----ADDITIONAL INFORMATION---- T his test was de veloped and its performance characteristics determined by [facility] in a manner consistent with CLIArequirement s. This test has not been cleare d or approved bythe U.S. Food and Drug Administration. Alprazolam Urine Present Cutoff: 10 A Xanax (test code = ng/mL 15320-1) Alpha-Hydroxyalpra Present Cutoff: 10 A Metabolit e of Alprazolam zolam Urine (test ng/mL code = 93667-0) Alpha-Hydroxyalpra Present Cutoff: 50 A Metabolit e of Alprazolam zolam Glucuronide ng/mL Urine (test code = 61719-0) Chlordiazepoxide Not Cutoff: 10 Librium Urine (test code = Detected ng/mL 14105-2) Colbazam Urine Not Cutoff: 10 Frisium, Onfi (test code = Detected ng/mL 87809-5) N-Desmethylclobaza Not Cutoff: 200 Metabolit e of Clobazam m Urine (test code Detected ng/mL = 38936-8) Clonazepam Urine Not Cutoff: 10 Klonopin, R ivotril (test code = Detected ng/mL 87151-5) 7-Aminoclonazepam Not Cutoff: 10 Metabolite of Clonazepam Urine (test code = Detected ng/mL 30432-0) Diazepam Urine Not Cutoff: 10 Valium (test code = Detected ng/mL 76265-6) Nordiazepam Urine Not Cutoff: 10 Metabolite of Chlordiazepoxide, (test code = Detected ng/mL Diazepam, or Pr azepam. 50367-5) Flunitrazepam Not Cutoff: 10 Rohypnol Urine (test code = Detected ng/mL 04919-9) 7-Aminoflunitrazep Not Cutoff: 10 Metabolit e of Flunitrazepam am Urine (test Detected ng/mL code = 66966-7) FlUrinerazepam Not Cutoff: 10 Dalmane Urine (test code = Detected ng/mL 07235-9) 2-Hydroxy Ethyl Not Cutoff: 10 Metabolite o f Flurazepam Flurazepam Urine Detected ng/mL (test code = 39871-7) Lorazepam Urine Not Cutoff: 10 Ativan (test code = Detected ng/mL 81463-8) Lorazepam Not Cutoff: 50 Metabolite of L orazepam Glucuronide Urine Detected ng/mL (test code = 69025-1) Midazolam Urine Not Cutoff: 10 Versed (test code = Detected ng/mL 44080-5) Alpha-Hydroxy Not Cutoff: 10 Metabolite of Midazolam Midazolam Urine Detected ng/mL (test code = 71591-5) Oxazepam Urine Not Cutoff: 10 Serax; Also a metabolite of (test code = Detected ng/mL Chlordiazepoxid e, Diazepam, 94758-2) orTemazepam. Oxazepam Not Cutoff: 50 Metabolite of O xazepam Glucuronide Urine Detected ng/mL (test code = 89670-6) Prazepam Urine Not Cutoff: 10 Centrax (test code = Detected ng/mL 32842-0) Temazepam Urine Not Cutoff: 10 Restoril; Al so a metabolite of (test code = Detected ng/mL Diazepam. 77345-8) Temazepam Not Cutoff: 50 Metabolite of T emazepam Glucuronide Urine Detected ng/mL (test code = 43904-4) Triazolam Urine Not Cutoff: 10 Halcion (test code = Detected ng/mL ) Alpha-Hydroxy Not Cutoff: 10 Metabolite of Triazolam Triazolam Urine Detected ng/mL (test code = 95068-8) Zolpidem Urine Not Cutoff: 10 Ambien (test code = Detected ng/mL 66832-4) Zolpidem Present Cutoff: 10 A Metabolite of Z olpidem Jpjzz-4-Vhtyoguwir ng/mL Acid Urine (test code = 87634-5) Methamphetamine Not Cutoff: 100 Desoxyn (test code = Detected ng/mL ) Amphetamine (test Not Cutoff: 100 Dyanavel X R, Adzenys ER, code = 30422-6) Detected ng/mL Adderall, Vy vanse; Also ametabolite of methamphetamine 3,4-Methylenedioxy Not Cutoff: 100 methamphetamine Detected ng/mL (MDMA) (test code = 08772-4) 3,4-Methylenedioxy Not Cutoff: 100 -N-Ethylamphetamin Detected ng/mL e (MDEA) (test code = 42151-9) 3,4-Methylenedioxy Not Cutoff: 100 Also a me tabolite of MDMA amphetamine (MDA) Detected ng/mL and/or MDE A (test code = 56443-2) Ephedrine (test Not Cutoff: 100 code = 21710) Detected ng/mL Pseudoephedrine Present Cutoff: 100 A Sudafed (test code = ng/mL ) Phentermine (test Not Cutoff: 100 Adipex-P, Lomaira, Qsymia code = 57852-8) Detected ng/mL Phencyclidine Not Cutoff: 20 (PCP) (test code = Detected ng/mL ) Methylphenidate Not Cutoff: 20 Ritalin, Con certa (test code = Detected ng/mL 28093-2) Ritalinic acid Not Cutoff: 100 Metabolite of methylphenidate (test code = Detected ng/mL 89947) Stimulant See Test detected t he presence of Interpretation Footnote pseudoephedri ne. Suspect useof (test code = pseudoephedrine within the past 54712-0) three days. ----ADDITIONAL INFORMATION---- T his test was de veloped and its performance characteristics determined by [facility] in a manner consistent with CLIArequirement s. This test has not been cleare d or approved bythe U.S. Food and Drug Administration. Test Performed by:[facility] [id number] [place], [place] [address]Vik Dir ronnie: Moe Guzman M.D. Ph.D.; CLIA# [id number] Patients Current NOT ---------ADDITIONAL Medications (test ANSWERED INFORMATIO N A code = 04882-9) ccuracy and completeness of declared medica tions onreports solely dependen t on information submitted bymarco a umaña. Lab Interpretation Abnormal (test code = 74177-7) [facility], [id number] 09:20:34 Test Item Value Reference Interpretation Comments Range Urine Creatinine 55.1 mg/dL (test code = 2161-8) Urine Specific 1.014 [place] (test code = 5810-7) Urine Ph (test 6.2 code = 2756-5) Urine Oxidants Negative Cutoff: 200 (test code = mg/L 92607-4) Urine Comment Normal (test code = 77752-9) U Negative Cutoff: 200 Barbiturates-Lamar ng/mL (test code = 83384-1) U Cocaine Lvl-Lamar Negative Cutoff: 150 This coca ine immunoassay (test code = ng/mL targets benzoyl ecgonine 26225-6) theprimary meta bolite of cocaine. U THC-Lamar (test See Cutoff: 50 A RESULT: Pre sumptive code = 41187-8) Footnote ng/mL PositiveThis immunoassay targets delta-9 tetrahydrocanna [...] code Not Cutoff: 25 Tylenol 3 = 67494-8) Detected ng/mL Edvbyoj-5-dhpo-glu Not Cutoff: 100 Metabolit e of codeine curonide (test Detected ng/mL code = 44715-5) Morphine (test Not Cutoff: 25 Gayle Mary n, MS Contin; Also code = 43738-9) Detected ng/mL a minor meta bolite (10%) ofcodeine and c an be seen in low concentrati ons (<2,000ng/mL) w ith poppy seed ingestion. Ksgiiqcp-8-voav-gl Not Cutoff: 100 Metabolit e of morphine ucuronide (test Detected ng/mL code = 69653-1) 6-monoacetylmorphi Not Cutoff: 25 Metabolit e of heroin ne (test code = Detected ng/mL 91919-8) Hydrocodone (test Not Cutoff: 25 Lortab, No rco, Vicodin; Also a code = 45588-2) Detected ng/mL very minor m etabolite ofcodeine and impurity (< 1%) of oxycodone. Norhydrocodone Not Cutoff: 25 Metabolite of hydrocodone (test code = Detected ng/mL 45390-1) Dihydrocodeine Not Cutoff: 25 Metabolite of hydrocodone (test code = Detected ng/mL 82652-3) Hydromorphone Not Cutoff: 25 Dilaudid, Exal go; Also a (test code = Detected ng/mL metabolite of h ydrocodone and 49698-1) aminor (<5%) me tabolite of morphine. Gobxtvenakbfc-1-nl Not Cutoff: 100 Metabolit e of hydromorphone ta-glucuronide Detected ng/mL (test code = 65760-4) Oxycodone (test Present Cutoff: 25 A Endocet, Per cocet, Oxycontin code = 47621-0) ng/mL Noroxycodone (test Present Cutoff: 25 A Metabolit e of oxycodone code = 64277-0) ng/mL Oxymorphone (test Not Cutoff: 25 Numorphan, Opana; Also a code = 90410-0) Detected ng/mL metabolite o f oxycodone. Gflekyryyhm-8-jpxg Not Cutoff: 100 Metabolit e of oxymorphone -glucuronide (test Detected ng/mL and/or na loxone (nornaloxone) code = 36413-3) Noroxymorphone Present Cutoff: 25 A Metabolite of oxymorphone (test code = ng/mL and/or naloxone (nornaloxone) 43967-4) Fentanyl (test Not Cutoff: 2 Actiq, Durage sic, [place] code = 73018-8) Detected ng/mL Norfentanyl (test Not Cutoff: 2 Metabolite of fentanyl code = 38282-1) Detected ng/mL Meperidine (test Not Cutoff: 25 Demerol code = 63087-9) Detected ng/mL Normeperidine Not Cutoff: 25 Metabolite of meperidine (test code = Detected ng/mL 81684-7) Naloxone (test Not Cutoff: 25 Narcan code = 46400-4) Detected ng/mL Hxyjpobi-1-vehm-gl Not Cutoff: 100 Metabolit e of naloxone ucuronide (test Detected ng/mL code = 42141-7) U Methadone (test Not Cutoff: 25 Dolophine code = 88387-0) Detected ng/mL EDDP (test code = Not Cutoff: 25 Metabolite of methadone 17764-8) Detected ng/mL Propoxyphene (test Not Cutoff: 25 Darvon, D arvocet code = 35591-1) Detected ng/mL Norpropoxyphene Not Cutoff: 25 Metabolite o f propoxyphene (test code = Detected ng/mL 04643-9) Tramadol (test Not Cutoff: 25 Tradol, Ultra m, Ultracet code = 96232-4) Detected ng/mL O-desmethyltramado Not Cutoff: 25 Metabolit e of tramadol l (test code = Detected ng/mL 77030-6) Tapentadol (test Not Cutoff: 25 Nucynta code = 56484-3) Detected ng/mL Remiwfxyot-trcw-rl Not Cutoff: 100 Metabolit e of tapentadol ucuronide (test Detected ng/mL code = 37307-7) Buprenorphine Not Cutoff: 5 Buprenex, Subo xone (test code = Detected ng/mL 52893-1) Norbuprenorphine Not Cutoff: 5 Metabolite of buprenorphine (test code = Detected ng/mL 55326-6) Norbuprenorphine Not Cutoff: 20 Metabolite of buprenorphine Glucuronide (test Detected ng/mL code = 49275-2) Benzodiazepine See Test detected the presence of Interp Urine (test Footnote alprazola m and two of code = 47844-5) itsmetabolit es (alpha-hydroxya lprazolam andalpha-hydrox yalprazolam glucuronide). S uspect use ofalprazolam wi thin the past three days. Hailey t detected the presence of zol pidem pzslah-5-ftlcpy ylicacid (metabolite of zolpidem) only. Suspect use of zolpidemwithin the past four d ays. ----ADDITIONAL INFORMATION---- T his test was de veloped and its performance characteristics determined by [facility] in a manner consistent with CLIArequirement s. This test has not been cleare d or approved bythe U.S. Food and Drug Administration. Alprazolam Urine Present Cutoff: 10 A Xanax (test code = ng/mL 27362-9) Alpha-Hydroxyalpra Present Cutoff: 10 A Metabolit e of Alprazolam zolam Urine (test ng/mL code = 12414-5) Alpha-Hydroxyalpra Present Cutoff: 50 A Metabolit e of Alprazolam zolam Glucuronide ng/mL Urine (test code = 73636-1) Chlordiazepoxide Not Cutoff: 10 Librium Urine (test code = Detected ng/mL 71209-3) Colbazam Urine Not Cutoff: 10 Frisium, Onfi (test code = Detected ng/mL 68529-4) N-Desmethylclobaza Not Cutoff: 200 Metabolit e of Clobazam m Urine (test code Detected ng/mL = 75860-8) Clonazepam Urine Not Cutoff: 10 Klonopin, R ivotril (test code = Detected ng/mL 48134-6) 7-Aminoclonazepam Not Cutoff: 10 Metabolite of Clonazepam Urine (test code = Detected ng/mL 20206-0) Diazepam Urine Not Cutoff: 10 Valium (test code = Detected ng/mL 91254-6) Nordiazepam Urine Not Cutoff: 10 Metabolite of Chlordiazepoxide, (test code = Detected ng/mL Diazepam, or Pr azepam. 37659-9) Flunitrazepam Not Cutoff: 10 Rohypnol Urine (test code = Detected ng/mL 69898-3) 7-Aminoflunitrazep Not Cutoff: 10 Metabolit e of Flunitrazepam am Urine (test Detected ng/mL code = 69539-1) FlUrinerazepam Not Cutoff: 10 Dalmane Urine (test code = Detected ng/mL 29786-6) 2-Hydroxy Ethyl Not Cutoff: 10 Metabolite o f Flurazepam Flurazepam Urine Detected ng/mL (test code = 81207-3) Lorazepam Urine Not Cutoff: 10 Ativan (test code = Detected ng/mL 89164-6) Lorazepam Not Cutoff: 50 Metabolite of L orazepam Glucuronide Urine Detected ng/mL (test code = 81080-6) Midazolam Urine Not Cutoff: 10 Versed (test code = Detected ng/mL 43414-4) Alpha-Hydroxy Not Cutoff: 10 Metabolite of Midazolam Midazolam Urine Detected ng/mL (test code = 43006-3) Oxazepam Urine Not Cutoff: 10 Serax; Also a metabolite of (test code = Detected ng/mL Chlordiazepoxid e, Diazepam, 47190-5) orTemazepam. Oxazepam Not Cutoff: 50 Metabolite of O xazepam Glucuronide Urine Detected ng/mL (test code = 56185-8) Prazepam Urine Not Cutoff: 10 Centrax (test code = Detected ng/mL 73285-5) Temazepam Urine Not Cutoff: 10 Restoril; Al so a metabolite of (test code = Detected ng/mL Diazepam. 04574-0) Temazepam Not Cutoff: 50 Metabolite of T emazepam Glucuronide Urine Detected ng/mL (test code = 80226-9) Triazolam Urine Not Cutoff: 10 Halcion (test code = Detected ng/mL 29972-8) Alpha-Hydroxy Not Cutoff: 10 Metabolite of Triazolam Triazolam Urine Detected ng/mL (test code = 35412-6) Zolpidem Urine Not Cutoff: 10 Ambien (test code = Detected ng/mL 41170-6) Zolpidem Present Cutoff: 10 A Metabolite of Z olpidem Ttrne-2-Hfgrntfbmq ng/mL Acid Urine (test code = 72945-7) Methamphetamine Not Cutoff: 100 Desoxyn (test code = Detected ng/mL 78273-3) Amphetamine (test Not Cutoff: 100 Dyanavel X R, Adzenys ER, code = 56013-5) Detected ng/mL Adderall, Vy vanse; Also ametabolite of methamphetamine 3,4-Methylenedioxy Not Cutoff: 100 methamphetamine Detected ng/mL (MDMA) (test code = 98600-8) 3,4-Methylenedioxy Not Cutoff: 100 -N-Ethylamphetamin Detected ng/mL e (MDEA) (test code = 99318-2) 3,4-Methylenedioxy Not Cutoff: 100 Also a me tabolite of MDMA amphetamine (MDA) Detected ng/mL and/or MDE A (test code = 75055-2) Ephedrine (test Not Cutoff: 100 code = 62996) Detected ng/mL Pseudoephedrine Present Cutoff: 100 A Sudafed (test code = ng/mL 22795) Phentermine (test Not Cutoff: 100 Adipex-P, Lomaira, Qsymia code = 81095-1) Detected ng/mL Phencyclidine Not Cutoff: 20 (PCP) (test code = Detected ng/mL 56465-6) Methylphenidate Not Cutoff: 20 Ritalin, Con certa (test code = Detected ng/mL 99431-4) Ritalinic acid Not Cutoff: 100 Metabolite of methylphenidate (test code = Detected ng/mL 68395) Stimulant See Test detected t he presence of Interpretation Footnote pseudoephedri ne. Suspect useof (test code = pseudoephedrine within the past 67629-7) three days. ----ADDITIONAL INFORMATION---- T his test was de veloped and its performance characteristics determined by [facility] in a manner consistent with CLIArequirement s. This test has not been cleare d or approved bythe U.S. Food and Drug Administration. Test Performed by:[facility] [address]or [id number] [place], [place] [address]Xsc Dir ronnie: Moe Guzman M.D. Ph.D.; CLIA# [id number] Patients Current NOT ---------ADDITIONAL Medications (test ANSWERED INFORMATIO N A code = 26613-5) ccuracy and completeness of declared medica tions onreports solely dependen t on information submitted byshanei leeroy. Lab Interpretation Abnormal (test code = 75183-1) [facility]Controlled Substance Monitoring Panel, [id number] 09:20:34 Test Item Value Reference Interpretation Comments Range Urine Creatinine 55.1 mg/dL (test code = 2161-8) Urine Specific 1.014 [place] (test code = 5810-7) Urine Ph (test 6.2 code = 2756-5) Urine Oxidants Negative Cutoff: 200 (test code = mg/L 37800-6) Urine Comment Normal (test code = 43200-3) U Negative Cutoff: [facility] (test code = 76732-4) U Cocaine Lvl-Lamar Negative Cutoff: 150 This coca ine immunoassay (test code = ng/mL targets benzoyl ecgonine 39608-5) theprimary meta bolite of cocaine. U THC-Lamar (test See Cutoff: 50 A RESULT: Pre sumptive code = 30950-2) Footnote ng/mL PositiveThis immunoassay targets delta-9 tetrahydrocanna [...] code Not Cutoff: 25 Tylenol 3 = 84484-6) Detected ng/mL Butnbrj-9-lzji-glu Not Cutoff: 100 Metabolit e of codeine curonide (test Detected ng/mL code = 92814-9) Morphine (test Not Cutoff: 25 Gayle Mary n, MS Contin; Also code = 36225-8) Detected ng/mL a minor meta bolite (10%) ofcodeine and c an be seen in low concentrati ons (<2,000ng/mL) w ith poppy seed ingestion. Rsyzccpk-7-lmfi-gl Not Cutoff: 100 Metabolit e of morphine ucuronide (test Detected ng/mL code = 07249-8) 6-monoacetylmorphi Not Cutoff: 25 Metabolit e of heroin ne (test code = Detected ng/mL 26032-2) Hydrocodone (test Not Cutoff: 25 Lortab, No rco, Vicodin; Also a code = 10689-8) Detected ng/mL very minor m etabolite ofcodeine and impurity (< 1%) of oxycodone. Norhydrocodone Not Cutoff: 25 Metabolite of hydrocodone (test code = Detected ng/mL 92235-6) Dihydrocodeine Not Cutoff: 25 Metabolite of hydrocodone (test code = Detected ng/mL 12615-8) Hydromorphone Not Cutoff: 25 Dilaudid, Exal go; Also a (test code = Detected ng/mL metabolite of h ydrocodone and 06741-3) aminor (<5%) me tabolite of morphine. Pxclmnrcdppln-8-pc Not Cutoff: 100 Metabolit e of hydromorphone ta-glucuronide Detected ng/mL (test code = 08498-2) Oxycodone (test Present Cutoff: 25 A Endocet, Per cocet, Oxycontin code = 75806-0) ng/mL Noroxycodone (test Present Cutoff: 25 A Metabolit e of oxycodone code = 40404-2) ng/mL Oxymorphone (test Not Cutoff: 25 Numorphan, Opana; Also a code = 20652-1) Detected ng/mL metabolite o f oxycodone. Lrbmuqujbnm-6-ofxr Not Cutoff: 100 Metabolit e of oxymorphone -glucuronide (test Detected ng/mL and/or na loxone (nornaloxone) code = 88669-0) Noroxymorphone Present Cutoff: 25 A Metabolite of oxymorphone (test code = ng/mL and/or naloxone (nornaloxone) 21998-2) Fentanyl (test Not Cutoff: 2 Actiq, Durage sic, Fentora code = 24818-1) Detected ng/mL Norfentanyl (test Not Cutoff: 2 Metabolite of fentanyl code = 20176-8) Detected ng/mL Meperidine (test Not Cutoff: 25 Demerol code = 47793-2) Detected ng/mL Normeperidine Not Cutoff: 25 Metabolite of meperidine (test code = Detected ng/mL 25681-6) Naloxone (test Not Cutoff: 25 Narcan code = 28222-6) Detected ng/mL Iuhyampw-7-ukhd-gl Not Cutoff: 100 Metabolit e of naloxone ucuronide (test Detected ng/mL code = 42242-2) U Methadone (test Not Cutoff: 25 Dolophine code = 49409-8) Detected ng/mL EDDP (test code = Not Cutoff: 25 Metabolite of methadone 71239-9) Detected ng/mL Propoxyphene (test Not Cutoff: 25 Darvon, D arvocet code = 49849-0) Detected ng/mL Norpropoxyphene Not Cutoff: 25 Metabolite o f propoxyphene (test code = Detected ng/mL 84489-1) Tramadol (test Not Cutoff: 25 Tradol, Ultra m, Ultracet code = 27691-0) Detected ng/mL O-desmethyltramado Not Cutoff: 25 Metabolit e of tramadol l (test code = Detected ng/mL 28091-2) Tapentadol (test Not Cutoff: 25 Nucynta code = 63435-8) Detected ng/mL Qdwfsgcbsr-bgdc-mj Not Cutoff: 100 Metabolit e of tapentadol ucuronide (test Detected ng/mL code = 92160-2) Buprenorphine Not Cutoff: 5 Buprenex, Subo xone (test code = Detected ng/mL 61517-4) Norbuprenorphine Not Cutoff: 5 Metabolite of buprenorphine (test code = Detected ng/mL 86630-2) Norbuprenorphine Not Cutoff: 20 Metabolite of buprenorphine Glucuronide (test Detected ng/mL code = 33450-8) Benzodiazepine See Test detected the presence of Interp Urine (test Footnote alprazola m and two of code = 08361-1) itsmetabolit es (alpha-hydroxya lprazolam andalpha-hydrox yalprazolam glucuronide). S uspect use ofalprazolam wi thin the past three days. Hailey t detected the presence of zol pidem nnykum-1-aweojq ylicacid (metabolite of zolpidem) only. Suspect use of zolpidemwithin the past four d ays. ----ADDITIONAL INFORMATION---- T his test was de veloped and its performance characteristics determined by [facility] in a manner consistent with CLIArequirement s. This test has not been cleare d or approved bythe U.S. Food and Drug Administration. Alprazolam Urine Present Cutoff: 10 A Xanax (test code = ng/mL 00783-9) Alpha-Hydroxyalpra Present Cutoff: 10 A Metabolit e of Alprazolam zolam Urine (test ng/mL code = 25202-8) Alpha-Hydroxyalpra Present Cutoff: 50 A Metabolit e of Alprazolam zolam Glucuronide ng/mL Urine (test code = 92982-0) Chlordiazepoxide Not Cutoff: 10 Librium Urine (test code = Detected ng/mL 91246-6) Colbazam Urine Not Cutoff: 10 Frisium, Onfi (test code = Detected ng/mL 79808-1) N-Desmethylclobaza Not Cutoff: 200 Metabolit e of Clobazam m Urine (test code Detected ng/mL = 23987-4) Clonazepam Urine Not Cutoff: 10 Klonopin, R ivotril (test code = Detected ng/mL 41041-1) 7-Aminoclonazepam Not Cutoff: 10 Metabolite of Clonazepam Urine (test code = Detected ng/mL 55011-0) Diazepam Urine Not Cutoff: 10 Valium (test code = Detected ng/mL 31035-0) Nordiazepam Urine Not Cutoff: 10 Metabolite of Chlordiazepoxide, (test code = Detected ng/mL Diazepam, or Pr azepam. 45765-6) Flunitrazepam Not Cutoff: 10 Rohypnol Urine (test code = Detected ng/mL 48452-8) 7-Aminoflunitrazep Not Cutoff: 10 Metabolit e of Flunitrazepam am Urine (test Detected ng/mL code = 55607-6) FlUrinerazepam Not Cutoff: 10 Dalmane Urine (test code = Detected ng/mL 32014-9) 2-Hydroxy Ethyl Not Cutoff: 10 Metabolite o f Flurazepam Flurazepam Urine Detected ng/mL (test code = 24616-6) Lorazepam Urine Not Cutoff: 10 Ativan (test code = Detected ng/mL 98219-8) Lorazepam Not Cutoff: 50 Metabolite of L orazepam Glucuronide Urine Detected ng/mL (test code = 32595-1) Midazolam Urine Not Cutoff: 10 Versed (test code = Detected ng/mL 57430-1) Alpha-Hydroxy Not Cutoff: 10 Metabolite of Midazolam Midazolam Urine Detected ng/mL (test code = 45507-2) Oxazepam Urine Not Cutoff: 10 Serax; Also a metabolite of (test code = Detected ng/mL Chlordiazepoxid e, Diazepam, 93843-2) orTemazepam. Oxazepam Not Cutoff: 50 Metabolite of O xazepam Glucuronide Urine Detected ng/mL (test code = 34827-2) Prazepam Urine Not Cutoff: 10 Centrax (test code = Detected ng/mL 09312-4) Temazepam Urine Not Cutoff: 10 Restoril; Al so a metabolite of (test code = Detected ng/mL Diazepam. 96726-7) Temazepam Not Cutoff: 50 Metabolite of T emazepam Glucuronide Urine Detected ng/mL (test code = 68833-8) Triazolam Urine Not Cutoff: 10 Halcion (test code = Detected ng/mL 79445-0) Alpha-Hydroxy Not Cutoff: 10 Metabolite of Triazolam Triazolam Urine Detected ng/mL (test code = 38568-7) Zolpidem Urine Not Cutoff: 10 Ambien (test code = Detected ng/mL 14253-4) Zolpidem Present Cutoff: 10 A Metabolite of Z olpidem Glran-1-Npbetrixuf ng/mL Acid Urine (test code = 15620-3) Methamphetamine Not Cutoff: 100 Desoxyn (test code = Detected ng/mL 72526-1) Amphetamine (test Not Cutoff: 100 Dyanavel X R, Adzenys ER, code = 79479-5) Detected ng/mL Adderall, Vy vanse; Also ametabolite of methamphetamine 3,4-Methylenedioxy Not Cutoff: 100 methamphetamine Detected ng/mL (MDMA) (test code = 07322-3) 3,4-Methylenedioxy Not Cutoff: 100 -N-Ethylamphetamin Detected ng/mL e (MDEA) (test code = 48512-5) 3,4-Methylenedioxy Not Cutoff: 100 Also a me tabolite of MDMA amphetamine (MDA) Detected ng/mL and/or MDE A (test code = 33621-0) Ephedrine (test Not Cutoff: 100 code = 40547) Detected ng/mL Pseudoephedrine Present Cutoff: 100 A Sudafed (test code = ng/mL 06388) Phentermine (test Not Cutoff: 100 Adipex-P, Lomaira, Qsymia code = 96767-6) Detected ng/mL Phencyclidine Not Cutoff: 20 (PCP) (test code = Detected ng/mL 46045-3) Methylphenidate Not Cutoff: 20 Ritalin, Con certa (test code = Detected ng/mL 06170-0) Ritalinic acid Not Cutoff: 100 Metabolite of methylphenidate (test code = Detected ng/mL 85633) Stimulant See Test detected t he presence of Interpretation Footnote pseudoephedri ne. Suspect useof (test code = pseudoephedrine within the past 78917-1) three days. ----ADDITIONAL INFORMATION---- T his test was de veloped and its performance characteristics determined by [facility] in a manner consistent with CLIArequirement s. This test has not been cleare d or approved bythe U.S. Food and Drug Administration. Test Performed by:[facility] [id number] [place], [place] [address]Nft Dir ronnie: Moe Guzman M.D. Ph.D.; CLIA# [id number] Patients Current NOT ---------ADDITIONAL Medications (test ANSWERED INFORMATIO N A code = 10255-8) ccuracy and completeness of declared medica tions onreports solely dependen t on information submitted bycli ent. Lab Interpretation Abnormal (test code = 94228-0) [facility] Urine Drug [id number] 18:30:48 Test Item Value Reference Range Interpretation Comments POC U Amp (test code Negative Negative Drug Ab use Cutoff = 09768-3) Concentration: Cutoff: 1000 ng /mL POC U Barbit (test Negative Negative Drug Abus e Cutoff code = 09089-0) Concentratio n: 300 ng/mL POC U Benzo (test Positive Negative A Drug Abuse Cutoff code = 92566-1) Concentratio n: Cutoff: 300 ng/ mL POC U Cocaine (test Negative Negative Drug Abu se Cutoff code = 04074-0) Concentratio n: Cutoff: 300 ng/ mL POC U THC (test code Positive Negative A Drug Ab use Cutoff = 6709) Concentration: Cutoff: 50 ng/m L POC U Methd (test Negative Negative Drug Abuse Cutoff code = 6701) Concentration: Cutoff: 300 ng/ mL POC U Mampht (test Negative Negative Drug Abus e Cutoff code = 29113-8) Concentratio n: Cutoff: 1000 ng /mL POC U Opiate (test Negative Negative Drug Abus e Cutoff code = 23080-3) Concentratio n: Cutoff: 2000 ng /mL POC U Oxycod (test Positive Negative A Drug Abus e Cutoff code = 07510-1) Concentratio n: Cutoff: 100 ng/ mL Due to the assa y cross reactivit y between Oxycodo ne and Opiates, an d lower sensitivi ty compared to GC- MS method, the hailey t results may be falsely positiv e or falsely negative. Confirmation wi th concurrent GC-M S results is recommended. POC U PCP (test code Negative Negative Drug Ab use Cutoff = 82066-4) Concentration: Cutoff: 25 ng/m L POC U TCA (test code Negative Negative Drug Ab use Cutoff = 22354-3) Concentration: Cutoff: 1000 ng /mL POC U PPX (test code Negative Negative Drug Ab use Cutoff = 04599-9) Concentration: Cutoff: 300 ng/ mL Method description: [...] testing. Lab Interpretation Abnormal (test code = 90220-6) [facility] Urine Drug [id number] 18:30:48 Test Item Value Reference Range Interpretation Comments POC U Amp (test code Negative Negative Drug Ab use Cutoff = 02826-0) Concentration: Cutoff: 1000 ng /mL POC U Barbit (test Negative Negative Drug Abus e Cutoff code = 76031-2) Concentratio n: 300 ng/mL POC U Benzo (test Positive Negative A Drug Abuse Cutoff code = 51397-4) Concentratio n: Cutoff: 300 ng/ mL POC U Cocaine (test Negative Negative Drug Abu se Cutoff code = 78362-6) Concentratio n: Cutoff: 300 ng/ mL POC U THC (test code Positive Negative A Drug Ab use Cutoff = 6709) Concentration: Cutoff: 50 ng/m L POC U Methd (test Negative Negative Drug Abuse Cutoff code = 6701) Concentration: Cutoff: 300 ng/ mL POC U Mampht (test Negative Negative Drug Abus e Cutoff code = 06022-8) Concentratio n: Cutoff: 1000 ng /mL POC U Opiate (test Negative Negative Drug Abus e Cutoff code = 91800-6) Concentratio n: Cutoff: 2000 ng /mL POC U Oxycod (test Positive Negative A Drug Abus e Cutoff code = 48179-4) Concentratio n: Cutoff: 100 ng/ mL Due to the assa y cross reactivit y between Oxycodo ne and Opiates, an d lower sensitivi ty compared to GC- MS method, the hailey t results may be falsely positiv e or falsely negative. Confirmation wi th concurrent GC-M S results is recommended. POC U PCP (test code Negative Negative Drug Ab use Cutoff = 18136-9) Concentration: Cutoff: 25 ng/m L POC U TCA (test code Negative Negative Drug Ab use Cutoff = 57863-6) Concentration: Cutoff: 1000 ng /mL POC U PPX (test code Negative Negative Drug Ab use Cutoff = 34325-6) Concentration: Cutoff: 300 ng/ mL Method description: [...] testing. Lab Interpretation Abnormal (test code = 11024-3) [facility] Urine Drug [id number] 18:30:48 Test Item Value Reference Range Interpretation Comments POC U Amp (test code Negative Negative Drug Ab use Cutoff = 20317-0) Concentration: Cutoff: 1000 ng /mL POC U Barbit (test Negative Negative Drug Abus e Cutoff code = 26103-9) Concentratio n: 300 ng/mL POC U Benzo (test Positive Negative A Drug Abuse Cutoff code = 16933-1) Concentratio n: Cutoff: 300 ng/ mL POC U Cocaine (test Negative Negative Drug Abu se Cutoff code = 76635-1) Concentratio n: Cutoff: 300 ng/ mL POC U THC (test code Positive Negative A Drug Ab use Cutoff = 6709) Concentration: Cutoff: 50 ng/m L POC U Methd (test Negative Negative Drug Abuse Cutoff code = 6701) Concentration: Cutoff: 300 ng/ mL POC U Mampht (test Negative Negative Drug Abus e Cutoff code = 41077-4) Concentratio n: Cutoff: 1000 ng /mL POC U Opiate (test Negative Negative Drug Abus e Cutoff code = 02229-7) Concentratio n: Cutoff: 2000 ng /mL POC U Oxycod (test Positive Negative A Drug Abus e Cutoff code = 94919-5) Concentratio n: Cutoff: 100 ng/ mL Due to the assa y cross reactivit y between Oxycodo ne and Opiates, an d lower sensitivi ty compared to GC- MS method, the hailey t results may be falsely positiv e or falsely negative. Confirmation wi th concurrent GC-M S results is recommended. POC U PCP (test code Negative Negative Drug Ab use Cutoff = 31949-7) Concentration: Cutoff: 25 ng/m L POC U TCA (test code Negative Negative Drug Ab use Cutoff = 41648-3) Concentration: Cutoff: 1000 ng /mL POC U PPX (test code Negative Negative Drug Ab use Cutoff = 88371-6) Concentration: Cutoff: 300 ng/ mL Method description: [...] testing. Lab Interpretation Abnormal (test code = 49122-3) [facility] Urine Drug [id number] 18:30:48 Test Item Value Reference Range Interpretation Comments POC U Amp (test code Negative Negative Drug Ab use Cutoff = 09947-9) Concentration: Cutoff: 1000 ng /mL POC U Barbit (test Negative Negative Drug Abus e Cutoff code = 70961-5) Concentratio n: 300 ng/mL POC U Benzo (test Positive Negative A Drug Abuse Cutoff code = 02214-6) Concentratio n: Cutoff: 300 ng/ mL POC U Cocaine (test Negative Negative Drug [place] Cutoff code = 06534-2) Concentratio n: Cutoff: 300 ng/ mL POC U THC (test code Positive Negative A Drug Ab use Cutoff = 6709) Concentration: Cutoff: 50 ng/m L POC U Methd (test Negative Negative Drug Abuse Cutoff code = 6701) Concentration: Cutoff: 300 ng/ mL POC U Mampht (test Negative Negative Drug Abus e Cutoff code = 61323-1) Concentratio n: Cutoff: 1000 ng /mL POC U Opiate (test Negative Negative Drug Abus e Cutoff code = 48577-2) Concentratio n: Cutoff: 2000 ng /mL POC U Oxycod (test Positive Negative A Drug Abus e Cutoff code = 47796-0) Concentratio n: Cutoff: 100 ng/ mL Due to the assa y cross reactivit y between Oxycodo ne and Opiates, an d lower sensitivi ty compared to GC- MS method, the hailey t results may be falsely positiv e or falsely negative. Confirmation wi th concurrent GC-M S results is recommended. POC U PCP (test code Negative Negative Drug Ab use Cutoff = 76098-5) Concentration: Cutoff: 25 ng/m L POC U TCA (test code Negative Negative Drug Ab use Cutoff = 81094-5) Concentration: Cutoff: 1000 ng /mL POC U PPX (test code Negative Negative Drug Ab use Cutoff = 27755-9) Concentration: Cutoff: 300 ng/ mL Method description: [...] testing. Lab Interpretation Abnormal (test code = 06898-8) [facility]OVID-19 (SARS-CoV-2) PCR- Asymptomatic [id number] 03:09:25 Test Item Value Reference Range Interpretation Comments COVID19 (SARS Not Detected Not Detected CoV-2) Result (test code = __This test is a 84175-1) qualitative reverse-transcr iptase polymerase alanna n reaction [...] patients provid ed by the manufacture r ([employer]) c an be reviewed at:https://www. fda.gov /media/285858/d ownload . A fact sheet for Health Care pro viders is provided by the surface logging systems logger ([employer]) and can be reviewed at: https://www.[employer] .gov/me juliet/017095/down load Results must be interpreted wit hin [...] were verified by the Microbiology Laboratory at [facility], CLIA Accreditation # : [id number] and CAP Accreditation # : [id number]. COVID19 SARS PHOTOGRAMMETRIC ENGINEER Swab Source (test code = 27930) COVID19 SARS Pre-Radiation Indication (test Therapy code = 20400) [facility]- Asymptomatic [id number] 03:09:25 Test Item Value Reference Range Interpretation Comments COVID19 (SARS Not Detected Not Detected CoV-2) Result (test code = __This test is a 81683-4) qualitative reverse-transcr iptase polymerase alanna n reaction [...] patients provid ed by the manufacture r ([employer]) c an be reviewed at:https://www. fda.gov /media/461324/d ownload . A fact sheet for Health Care pro viders is provided by the surface logging systems logger ([employer]) and can be reviewed at: https://www.fda .gov/me juliet/668553/down load Results must be interpreted wit hin [...] were verified by the Microbiology Laboratory at [facility], CLIA Accreditation # : [id number] and CAP Accreditation # : [id number]. COVID19 SARS PHOTOGRAMMETRIC ENGINEER Swab Source (test code = 24045) COVID19 SARS Pre-Radiation Indication (test Therapy code = 46589) [facility]COVID-19 (SARS-CoV-2) PCR- Asymptomatic [id number] 03:09:25 Test Item Value Reference Range Interpretation Comments COVID19 (SARS Not Detected Not Detected CoV-2) Result (test code = __This test is a 04242-0) qualitative reverse-transcr iptase polymerase alanna n reaction (RT-PC R) developed for t he Access Mobile RUBY 680 0 system and inte nded [...] patients provid ed by the manufacture r ([employer]) c an be reviewed at:https://www. fda.gov /media/331144/d ownload . A fact sheet for Health Care pro viders is provided by the surface logging systems logger ([employer], [employer]) and can be reviewed at: https://www.fda .gov/me juliet/893876/down load Results must be interpreted wit hin [...] were verified by the Microbiology Laboratory at [facility], CLIA Accreditation # : [id number] and CAP Accreditation # : [id number]. COVID19 SARS PHOTOGRAMMETRIC ENGINEER Swab Source (test code = 62326) COVID19 SARS Pre-Radiation Indication (test Therapy code = 94500) [facility]- Asymptomatic [id number] 03:09:25 Test Item Value Reference Range Interpretation Comments COVID19 (SARS Not Detected Not Detected CoV-2) Result (test code = __This test is a 67952-9) qualitative reverse-transcr iptase polymerase alanna n reaction [...] patients provid ed by the manufacture r ([employer]) c an be reviewed at:https://www. fda.gov /media/483298/d ownload . A fact sheet for Health Care pro viders is provided by the surface logging systems logger ([employer]) and can be reviewed at: https://www.fda .gov/me juliet/784601/down load Results must be interpreted wit hin [...] were verified by the Microbiology Laboratory at [facility], CLIA Accreditation # : [id number] and CAP Accreditation # : [id number]. COVID19 SARS PHOTOGRAMMETRIC ENGINEER Swab Source (test code = 46392) COVID19 SARS Pre-Radiation Indication (test Therapy code = 60740) [facility] [id number] 00:43:46 Test Item Value Reference Range Interpretation Comments pH Raghavendra (test code = 7.40 7.32-7.43 Results are 2746-6) corrected for a body temp of 37C pCO2 Raghavendra (test code = 47.6 See_Comment [Auto mated message] 2021-01) The system [employer] generated this result transmit kaylie reference range : 41.0 - 51.0 mmH g. The reference r pinky was not used to interpret this result as normal/abnormal . pO2 Raghavendra (test code = 52 mmHg 2705-2) HCO3 Raghavendra (test code = 29 mmol/L 21-28 H 45537-8) Base Excess Raghavendra (test 3 mmol/L -2-3 code = 1927-3) O2 Sat Raghavendra (test code = 87 % 2711-0) Lab Interpretation (test Abnormal code = 15034-8) [facility] [id number] 00:43:46 Test Item Value Reference Range Interpretation Comments pH Raghavendra (test code = 7.40 7.32-7.43 Results are 2746-6) corrected for a body temp of 37C pCO2 Raghavendra (test code = 47.6 See_Comment [Auto mated message] 2021-01) The system [employer] generated this result transmit kaylie reference range : 41.0 - 51.0 mmH g. The reference r pinky was not used to interpret this result as normal/abnormal . pO2 Raghavendra (test code = 52 mmHg 2705-2) HCO3 Raghavendra (test code = 29 mmol/L 21-28 H 46485-2) Base Excess Raghavendra (test 3 mmol/L -2-3 code = 1927-3) O2 Sat Raghavendra (test code = 87 % 2711-0) Lab Interpretation (test Abnormal code = 57985-8) [facility] [id number] 00:43:46 Test Item Value Reference Range Interpretation Comments pH Raghavenrda (test code = 7.40 7.32-7.43 Results are 2746-6) corrected for a body temp of 37C pCO2 Raghavendra (test code = 47.6 See_Comment [Auto mated message] 2021-01) The system [employer] generated this result transmit kaylie reference range : 41.0 - 51.0 mmH g. The reference r pinky was not used to interpret this result as normal/abnormal . pO2 Raghavendra (test code = 52 mmHg 2705-2) HCO3 Raghavendra (test code = 29 mmol/L 21-28 H 60122-3) Base Excess Raghavendra (test 3 mmol/L -2-3 code = 1927-3) O2 Sat Raghavendra (test code = 87 % 2711-0) Lab Interpretation (test Abnormal code = 20657-9) [facility] [id number] 00:43:46 Test Item Value Reference Range Interpretation Comments pH Raghavendra (test code = 7.40 7.32-7.43 Results are 2746-6) corrected for a body temp of 37C pCO2 Raghavendra (test code = 47.6 See_Comment [Auto mated message] 2021-01) The system [employer] generated this result transmit kaylie reference range : 41.0 - 51.0 mmH g. The reference r pinky was not used to interpret this result as normal/abnormal . pO2 Raghavendra (test code = 52 mmHg 2705-2) HCO3 Raghavendra (test code = 29 mmol/L 21-28 H 34743-0) Base Excess Raghavendra (test 3 mmol/L -2-3 code = 1927-3) O2 Sat Raghavendra (test code = 87 % 2711-0) Lab Interpretation (test Abnormal code = 92815-6) [facility] [id number] 00:17:35 Test Item Value Reference Range Interpretation Comments UA Ketones (test code = 5797-6) NEG NEG mg/dL [facility] [id number] 00:17:35 Test Item Value Reference Range Interpretation Comments UA Ketones (test code = 5797-6) NEG NEG mg/dL [facility] [id number] 00:17:35 Test Item Value Reference Range Interpretation Comments UA Ketones (test code = 5797-6) NEG NEG mg/dL [facility] [id number] 00:17:35 Test Item Value Reference Range Interpretation Comments UA Ketones (test code = 5797-6) NEG NEG mg/dL [facility]2023-02-10 21:37:06 Test Item Value Reference Range Interpretation Comments POC Critical Comment See Note Test pe rformer notified (test code = 8955) Ordering Licensed Provider and /o r designee of POC Glucose Screen critical Results.. [facility]2023-02-10 21:37:06 Test Item Value Reference Range Interpretation Comments POC Critical Comment See Note Test pe rformer notified (test code = 8955) Ordering Licensed Provider and /o r designee of POC Glucose Screen critical Results.. [facility] [id number] 21:37:06 Test Item Value Reference Range Interpretation Comments POC Critical Comment See Note Test pe rformer notified (test code = 8955) Ordering Licensed Provider and /o r designee of POC Glucose Screen critical Results.. [facility] [id number] 21:37:06 Test Item Value Reference Range Interpretation Comments POC Critical Comment See Note Test pe rformer notified (test code = 8955) Ordering Licensed Provider and /o r designee of POC Glucose Screen critical Results.. [facility] [id number] 03:40:13 Test Item Value Reference Range Interpretation Comments POC VB pH (test code 7.46 7.31-7.41 H = 2746-6) POC VB pCO2 (test 42 See_Comment [Automate d message] code = 2020-4) The system Offert[employer] generated this result transmitted ref erence range: 41 - 51 mmHg. The reference r pinky was not used to interpret this result as normal/abnor mal. POC VB pO2 (test 61 mmHg code = 2705-2) POC VB TCO2 (test 31 See_Comment H [Automate d message] code = 2026-11) The system Offert[employer] generated this result transmitted ref erence range: 24 - 29 mEq/L. The reference r pinky was not used to interpret this result as normal/abnor mal. POC VB Bicarb (test 30 mmol/L 23-28 H code = 72601-4) POC VB Base Ex (test 5 mmol/L [...] which contains microfabricated sensors, a calibration [employer], fluidics system , and a waste chamber . Each test cartridge contains chemic ally sensitive biose nsors on a Spotplex ip that are config ured to perform spec ific tests. The microfabricated sensors measure analyte concent ration by an electroch emical assay. POC Sample Type Venous (test code = 6690) POC Clean Dev (test Yes code = 6672) Performing Lab (test MDA Main Main Ca mpus code = 81535) [facility], [address] [place] [address] [place] [address]; Auto Bumper Straightener: Margarita Jacob MD; Waived Point of Care Testing - Gabrielle aaron MD Lab Interpretation Abnormal (test code = 35726-5) [facility] [id number] 03:40:13 Test Item Value Reference Range Interpretation Comments POC VB pH (test code 7.46 7.31-7.41 H = 2746-6) POC VB pCO2 (test 42 See_Comment [Automate d message] code = 2021-01) The system Offert[employer] generated this result transmitted ref erence range: 41 - 51 mmHg. The reference r pinky was not used to interpret this result as normal/abnor mal. POC VB pO2 (test 61 mmHg code = 2705-2) POC VB TCO2 (test 31 See_Comment H [Automate d message] code = 2026-11) The system Offert[employer] generated this result transmitted ref erence range: 24 - 29 mEq/L. The reference r pinky was not used to interpret this result as normal/abnor mal. POC VB Bicarb (test 30 mmol/L 23-28 H code = 54409-1) POC VB Base Ex (test 5 mmol/L [...] chemic ally sensitive biose nsors on a Spotplex ip that are config ured to perform spec ific tests. The microfabricated sensors measure analyte concent ration by an electroch emical assay. POC Sample Type Venous (test code = 6690) POC Clean Dev (test Yes code = 6672) Performing Lab (test MDA Main Main Ca mpus code = 33122) [facility], [address] [place] [address]; Auto Bumper Straightener: Margarita Jacob MD; Waived Point of Care Testing - Gabrielle aaron MD Lab Interpretation Abnormal (test code = 50561-5) [facility] [id number] 03:40:13 Test Item Value Reference Range Interpretation Comments POC VB pH (test code 7.46 7.31-7.41 H = 2746-6) POC VB pCO2 (test 42 See_Comment [Automate d message] code = 2020-) The system Offerti generated this result transmitted ref erence range: 41 - 51 mmHg. The reference r pinky was not used to interpret this result as normal/abnor mal. POC VB pO2 (test 61 mmHg code = 2705-2) POC VB TCO2 (test 31 See_Comment H [Automate d message] code = 2026-11) The system Offerti generated this result transmitted ref erence range: 24 - 29 mEq/L. The reference r pinky was not used to interpret this result as normal/abnor mal. POC VB Bicarb (test 30 mmol/L 23-28 H code = 66037-0) POC VB Base Ex (test 5 mmol/L [...] chemic ally sensitive biose nsors on a Spotplex ip that are config ured to perform spec ific tests. The microfabricated sensors measure analyte concent ration by an electroch emical assay. POC Sample Type Venous (test code = 6690) POC Clean Dev (test Yes code = 6672) Performing Lab (test MDA Main Main Ca mpus code = 45566) [facility], [address] [place] [address]; Auto Bumper Straightener: Margarita Jacob MD; Waived Point of Care Testing - Gabrielle aaron MD Lab Interpretation Abnormal (test code = 96767-6) [facility] [id number] 03:40:13 Test Item Value Reference Range Interpretation Comments POC VB pH (test code 7.46 7.31-7.41 H = 2746-6) POC VB pCO2 (test 42 See_Comment [Automate d message] code = 2021-01) The system Offerti generated this result transmitted ref erence range: 41 - 51 mmHg. The reference r pinky was not used to interpret this result as normal/abnor mal. POC VB pO2 (test 61 mmHg code = 2705-2) POC VB TCO2 (test 31 See_Comment H [Automate d message] code = 2026-1) The system wh ich generated this result transmitted ref erence range: 24 - 29 mEq/L. The reference r pinky was not used to interpret this result as normal/abnor mal. POC VB Bicarb (test 30 mmol/L 23-28 H code = 00511-0) POC VB Base Ex (test 5 mmol/L [...] chemic ally sensitive biose nsors on a Spotplex ip that are config ured to perform spec ific tests. The microfabricated sensors measure analyte concent ration by an electroch emical assay. POC Sample Type Venous (test code = 6690) POC Clean Dev (test Yes code = 6672) Performing Lab (test MDA Main Main Ca mpus code = 78941) [facility], [address] [place] [address], [place] [address]; Auto Bumper Straightener: Margarita Jacob MD; Waived Point of Care Testing - Gabrielle aaron MD Lab Interpretation Abnormal (test code = 75933-0) [facility]2023-02-09 00:46:13 Test Item Value Reference Range Interpretation Comments Ammonia (test code = 18 See_Comment [Autom ated message] The 30837-4) system which ge nerated this result tra nsmitted reference range : 11 - 51 mcmol/L. The re ference range was not u sed to interpret this result as normal/abnormal . [facility]2023-02-09 00:46:13 Test Item Value Reference Range Interpretation Comments Ammonia (test code = 18 See_Comment [Autom ated message] The 37561-8) system which ge nerated this result tra nsmitted reference range : 11 - 51 mcmol/L. The re ference range was not u sed to interpret this result as normal/abnormal . [place] [id number] 00:46:13 Test Item Value Reference Range Interpretation Comments Ammonia (test code = 18 See_Comment [Autom ated message] The 21746-0) system which ge nerated this result tra nsmitted reference range : 11 - 51 mcmol/L. The re ference range was not u sed to interpret this result as normal/abnormal . [place] [address]-02-09 00:46:13 Test Item Value Reference Range Interpretation Comments Ammonia (test code = 18 See_Comment [Autom ated message] The 52428-3) system which ge nerated this result tra nsmitted reference range : 11 - 51 mcmol/L. The re ference range was not u sed to interpret this result as normal/abnormal . [facility] Diagnostics Specimen Collection -[id number] 16:59:59 Test Item Value Reference Range Interpretation Comments Molecular Diagnostics (Received) Yes (test code = 8400) [employer] Ap Link (test code = 10744) [id number] Block Number (Qualitative) (test BLANK code = 8193) Outside Accession (Qualitative) [id number] (test code = 8405) [facility] Diagn[facility] Specimen Collection -[id number] 16:59:59 Test Item Value Reference Range Interpretation Comments Molecular Diagnostics (Received) Yes (test code = 8400) [employer] (test code = 47245) [id number] Block Number (Qualitative) (test BLANK code = 8193) Outside Accession (Qualitative) [id number] (test code = 8405) [facility] Diagnostics Specimen Collection -[id number] 16:59:59 Test Item Value Reference Range Interpretation Comments Molecular Diagnostics (Received) Yes (test code = 8400) [employer] (test code = 79431) [id number] Block Number (Qualitative) (test BLANK code = 8193) Outside Accession (Qualitative) [id number] (test code = 8405) [facility] -[id number] 16:59:59 Test Item Value Reference Range Interpretation Comments Molecular Diagnostics (Received) Yes (test code = 8400) [employer] Ap Link (test code = 68660) [id number] Block Number (Qualitative) (test BLANK code = 8193) Outside Accession (Qualitative) [id number] (test code = 8405) [facility] PTEN Mutation Material Request 2022-12-04 14:02:11 Test Item Value Reference Range Interpretation Comments Archived Material The test is to be (test code = 59000) performed on tissue from case [id number]. The case report, slides, and blocks for the cited accession were retrieved from archives. The pathologist examined the candidate H&E slide and selected the block appropriate to the specifications of the ordered molecular analysis. Unstained slides and H&E slide were prepared and forwarded to [facility] Laboratory where the subject molecular test will be performed. Results will be reported separately. Pathologist Signature [facility] PTEN Mutation Material Request 2022-12-04 14:02:11 Test Item Value Reference Range Interpretation Comments Archived Material The test is to be (test code = 11408) performed on tissue from case [id number]. The case report, slides, and blocks for the cited accession were retrieved from archives. The pathologist examined the candidate H&E slide and selected the block appropriate to the specifications of the ordered molecular analysis. Unstained slides and H&E slide were prepared and forwarded to [facility] where the subject molecular test will be performed. Results will be reported separately. Pathologist Signature [facility] PTEN Mutation Material Request 2022-12-04 14:02:11 Test Item Value Reference Range Interpretation Comments Archived Material The test is to be (test code = 05797) performed on tissue from case [id number]. The case report, slides, and blocks for the cited accession were retrieved from archives. The pathologist examined the candidate H&E slide and selected the block appropriate to the specifications of the ordered molecular analysis. Unstained slides and H&E slide were prepared and forwarded to [facility] where the subject molecular test will be performed. Results will be reported separately. Pathologist Signature [facility] PTEN Mutation Material Request 2022-12-04 14:02:11 Test Item Value Reference Range Interpretation Comments Archived Material The test is to be (test code = 34242) performed on tissue from case [id number]. The case report, slides, and blocks for the cited accession were retrieved from archives. The pathologist examined the candidate H&E slide and selected the block appropriate to the specifications of the ordered molecular analysis. Unstained slides and H&E slide were prepared and forwarded to [facility] where the subject molecular test will be performed. Results will be reported separately. Pathologist Signature [facility] ALK Mutation Analysis Material [id number] 14:02:06 Test Item Value Reference Range Interpretation Comments Archived Material The test is to be (test code = 95784) performed on tissue from case [id number]. The case report, slides, and blocks for the cited accession were retrieved from archives. The pathologist examined the candidate H&E slide and selected the block appropriate to the specifications of the ordered molecular analysis. Unstained slides and H&E slide were prepared and forwarded to [facility] where the subject molecular test will be performed. Results will be reported separately. Pathologist Signature [facility] ALK Mutation Analysis Material [id number] 14:02:06 Test Item Value Reference Range Interpretation Comments Archived Material The test is to be (test code = 61103) performed on tissue from case [id number]. The case report, slides, and blocks for the cited accession were retrieved from archives. The pathologist examined the candidate H&E slide and selected the block appropriate to the specifications of the ordered molecular analysis. Unstained slides and H&E slide were prepared and forwarded to [facility] where the subject molecular test will be performed. Results will be reported separately. Pathologist Signature [facility] ALK Mutation Analysis Material [id number] 14:02:06 Test Item Value Reference Range Interpretation Comments Archived Material The test is to be (test code = 26297) performed on tissue from case [id number]. The case report, slides, and blocks for the cited accession were retrieved from archives. The pathologist examined the candidate H&E slide and selected the block appropriate to the specifications of the ordered molecular analysis. Unstained slides and H&E slide were prepared and forwarded to [facility] where the subject molecular test will be performed. Results will be reported separately. Pathologist Signature [facility] ALK Mutation Analysis Material [id number] 14:02:06 Test Item Value Reference Range Interpretation Comments Archived Material The test is to be (test code = 84237) performed on tissue from case [id number]. The case report, slides, and blocks for the cited accession were retrieved from archives. The pathologist examined the candidate H&E slide and selected the block appropriate to the specifications of the ordered molecular analysis. Unstained slides and H&E slide were prepared and forwarded to [facility] where the subject molecular test will be performed. Results will be reported separately. Pathologist Signature [facility] EGFR Mutation Material Request 2022-12-04 14:02:01 Test Item Value Reference Range Interpretation Comments Archived Material The test is to be (test code = 79611) performed on tissue from case [id number]. The case report, slides, and blocks for the cited accession were retrieved from archives. The pathologist examined the candidate H&E slide and selected the block appropriate to the specifications of the ordered molecular analysis. Unstained slides and H&E slide were prepared and forwarded to [facility] where the subject molecular test will be performed. Results will be reported separately. Pathologist Signature [facility] EGFR Mutation Material Request 2022-12-04 14:02:01 Test Item Value Reference Range Interpretation Comments Archived Material The test is to be (test code = 86229) performed on tissue from case [id number]. The case report, slides, and blocks for the cited accession were retrieved from archives. The pathologist examined the candidate H&E slide and selected the block appropriate to the specifications of the ordered molecular analysis. Unstained slides and H&E slide were prepared and forwarded to [facility] where the subject molecular test will be performed. Results will be reported separately. Pathologist Signature [facility] EGFR Mutation Material Request 2022-12-04 14:02:01 Test Item Value Reference Range Interpretation Comments Archived Material The test is to be (test code = 17429) performed on tissue from case [id number]. The case report, slides, and blocks for the cited accession were retrieved from archives. The pathologist examined the candidate H&E slide and selected the block appropriate to the specifications of the ordered molecular analysis. Unstained slides and H&E slide were prepared and forwarded to [facility] where the subject molecular test will be performed. Results will be reported separately. Pathologist Signature [facility] EGFR Mutation Material Request 2022-12-04 14:02:01 Test Item Value Reference Range Interpretation Comments Archived Material The test is to be (test code = 11354) performed on tissue from case [id number]. The case report, slides, and blocks for the cited accession were retrieved from archives. The pathologist examined the candidate H&E slide and selected the block appropriate to the specifications of the ordered molecular analysis. Unstained slides and H&E slide were prepared and forwarded to [facility] where the subject molecular test will be performed. Results will be reported separately. Pathologist Signature [facility] ERBB2 Mutation Analysis Material [id number] 14:01:56 Test Item Value Reference Range Interpretation Comments Archived Material The test is to be (test code = 15742) performed on tissue from case [id number]. The case report, slides, and blocks for the cited accession were retrieved from archives. The pathologist examined the candidate H&E slide and selected the block appropriate to the specifications of the ordered molecular analysis. Unstained slides and H&E slide were prepared and forwarded to [facility] where the subject molecular test will be performed. Results will be reported separately. Pathologist Signature [facility] ERBB2 Mutation Analysis Material [id number] 14:01:56 Test Item Value Reference Range Interpretation Comments Archived Material The test is to be (test code = 21672) performed on tissue from case [id number]. The case report, slides, and blocks for the cited accession were retrieved from archives. The pathologist examined the candidate H&E slide and selected the block appropriate to the specifications of the ordered molecular analysis. Unstained slides and H&E slide were prepared and forwarded to [facility] where the subject molecular test will be performed. Results will be reported separately. Pathologist Signature [facility] ERBB2 Mutation Analysis Material [id number] 14:01:56 Test Item Value Reference Range Interpretation Comments Archived Material The test is to be (test code = 74786) performed on tissue from case [id number]. The case report, slides, and blocks for the cited accession were retrieved from archives. The pathologist examined the candidate H&E slide and selected the block appropriate to the specifications of the ordered molecular analysis. Unstained slides and H&E slide were prepared and forwarded to [facility] where the subject molecular test will be performed. Results will be reported separately. Pathologist Signature [facility] ERBB2 Mutation Analysis Material [id number] 14:01:56 Test Item Value Reference Range Interpretation Comments Archived Material The test is to be (test code = 84448) performed on tissue from case [id number]. The case report, slides, and blocks for the cited accession were retrieved from archives. The pathologist examined the candidate H&E slide and selected the block appropriate to the specifications of the ordered molecular analysis. Unstained slides and H&E slide were prepared and forwarded to [facility] where the subject molecular test will be performed. Results will be reported separately. Pathologist Signature [facility] MTOR Mutation Material Request 2022-12-04 14:01:51 Test Item Value Reference Range Interpretation Comments Archived Material The test is to be (test code = 99378) performed on tissue from case [id number]. The case report, slides, and blocks for the cited accession were retrieved from archives. The pathologist examined the candidate H&E slide and selected the block appropriate to the specifications of the ordered molecular analysis. Unstained slides and H&E slide were prepared and forwarded to [facility] where the subject molecular test will be performed. Results will be reported separately. Pathologist Signature [facility] MTOR Mutation Material Request 2022-12-04 14:01:51 Test Item Value Reference Range Interpretation Comments Archived Material The test is to be (test code = 74097) performed on tissue from case [id number]. The case report, slides, and blocks for the cited accession were retrieved from archives. The pathologist examined the candidate H&E slide and selected the block appropriate to the specifications of the ordered molecular analysis. Unstained slides and H&E slide were prepared and forwarded to [facility] where the subject molecular test will be performed. Results will be reported separately. Pathologist Signature [facility] MTOR Mutation Material Request 2022-12-04 14:01:51 Test Item Value Reference Range Interpretation Comments Archived Material The test is to be (test code = 50911) performed on tissue from case [id number]. The case report, slides, and blocks for the cited accession were retrieved from archives. The pathologist examined the candidate H&E slide and selected the block appropriate to the specifications of the ordered molecular analysis. Unstained slides and H&E slide were prepared and forwarded to [facility] where the subject molecular test will be performed. Results will be reported separately. Pathologist Signature [facility] MTOR Mutation Material Request 2022-12-04 14:01:51 Test Item Value Reference Range Interpretation Comments Archived Material The test is to be (test code = 29539) performed on tissue from case [id number]. The case report, slides, and blocks for the cited accession were retrieved from archives. The pathologist examined the candidate H&E slide and selected the block appropriate to the specifications of the ordered molecular analysis. Unstained slides and H&E slide were prepared and forwarded to [facility] where the subject molecular test will be performed. Results will be reported separately. [facility] 2022-12-04 14:01:46 Test Item Value Reference Range Interpretation Comments Archived Material The test is to be (test code = 20531) performed on tissue from case [id number]. The case report, slides, and blocks for the cited accession were retrieved from archives. The pathologist examined the candidate H&E slide and selected the block appropriate to the specifications of the ordered molecular analysis. Unstained slides and H&E slide were prepared and forwarded to [facility] where the subject molecular test will be performed. Results will be reported separately. [facility] Request 2022-12-04 14:01:46 Test Item Value Reference Range Interpretation Comments Archived Material The test is to be (test code = 07365) performed on tissue from case [id number]. The case report, slides, and blocks for the cited accession were retrieved from archives. The pathologist examined the candidate H&E slide and selected the block appropriate to the specifications of the ordered molecular analysis. Unstained slides and H&E slide were prepared and forwarded to [facility] where the subject molecular test will be performed. Results will be reported separately. [facility] Request 2022-12-04 14:01:46 Test Item Value Reference Range Interpretation Comments Archived Material The test is to be (test code = 55828) performed on tissue from case [id number]. The case report, slides, and blocks for the cited accession were retrieved from archives. The pathologist examined the candidate H&E slide and selected the block appropriate to the specifications of the ordered molecular analysis. Unstained slides and H&E slide were prepared and forwarded to [facility] where the subject molecular test will be performed. Results will be reported separately. [facility] Request 2022-12-04 14:01:46 Test Item Value Reference Range Interpretation Comments Archived Material The test is to be (test code = 52264) performed on tissue from case [id number]. The case report, slides, and blocks for the cited accession were retrieved from archives. The pathologist examined the candidate H&E slide and selected the block appropriate to the specifications of the ordered molecular analysis. Unstained slides and H&E slide were prepared and forwarded to [facility] where the subject molecular test will be performed. Results will be reported separately. [facility] Request 2022-12-04 14:01:41 Test Item Value Reference Range Interpretation Comments Archived Material The test is to be (test code = 12195) performed on tissue from case [id number]. The case report, slides, and blocks for the cited accession were retrieved from archives. The pathologist examined the candidate H&E slide and selected the block appropriate to the specifications of the ordered molecular analysis. Unstained slides and H&E slide were prepared and forwarded to [facility] where the subject molecular test will be performed. Results will be reported separately. [facility] Request 2022-12-04 14:01:41 Test Item Value Reference Range Interpretation Comments Archived Material The test is to be (test code = 61176) performed on tissue from case [id number]. The case report, slides, and blocks for the cited accession were retrieved from archives. The pathologist examined the candidate H&E slide and selected the block appropriate to the specifications of the ordered molecular analysis. Unstained slides and H&E slide were prepared and forwarded to [facility] where the subject molecular test will be performed. Results will be reported separately. [facility] Request 2022-12-04 14:01:41 Test Item Value Reference Range Interpretation Comments Archived Material The test is to be (test code = 78557) performed on tissue from case [id number]. The case report, slides, and blocks for the cited accession were retrieved from archives. The pathologist examined the candidate H&E slide and selected the block appropriate to the specifications of the ordered molecular analysis. Unstained slides and H&E slide were prepared and forwarded to [facility] where the subject molecular test will be performed. Results will be reported separately. [facility] Request 2022-12-04 14:01:41 Test Item Value Reference Range Interpretation Comments Archived Material The test is to be (test code = 42650) performed on tissue from case [id number]. The case report, slides, and blocks for the cited accession were retrieved from archives. The pathologist examined the candidate H&E slide and selected the block appropriate to the specifications of the ordered molecular analysis. Unstained slides and H&E slide were prepared and forwarded to [facility] where the subject molecular test will be performed. Results will be reported separately. [facility] Material Request 2022-12-04 14:01:36 Test Item Value Reference Range Interpretation Comments Archived Material The test is to be (test code = 50443) performed on tissue from case [id number]. The case report, slides, and blocks for the cited accession were retrieved from archives. The pathologist examined the candidate H&E slide and selected the block appropriate to the specifications of the ordered molecular analysis. Unstained slides and H&E slide were prepared and forwarded to [facility] where the subject molecular test will be performed. Results will be reported separately. [facility] Request 2022-12-04 14:01:36 Test Item Value Reference Range Interpretation Comments Archived Material The test is to be (test code = 92380) performed on tissue from case [id number]. The case report, slides, and blocks for the cited accession were retrieved from archives. The pathologist examined the candidate H&E slide and selected the block appropriate to the specifications of the ordered molecular analysis. Unstained slides and H&E slide were prepared and forwarded to [facility] where the subject molecular test will be performed. Results will be reported separately. [facility] Request 2022-12-04 14:01:36 Test Item Value Reference Range Interpretation Comments Archived Material The test is to be (test code = 81851) performed on tissue from case [id number]. The case report, slides, and blocks for the cited accession were retrieved from archives. The pathologist examined the candidate H&E slide and selected the block appropriate to the specifications of the ordered molecular analysis. Unstained slides and H&E slide were prepared and forwarded to [facility] where the subject molecular test will be performed. Results will be reported separately. [facility] Material Request 2022-12-04 14:01:36 Test Item Value Reference Range Interpretation Comments Archived Material The test is to be (test code = 07889) performed on tissue from case [id number]. The case report, slides, and blocks for the cited accession were retrieved from archives. The pathologist examined the candidate H&E slide and selected the block appropriate to the specifications of the ordered molecular analysis. Unstained slides and H&E slide were prepared and forwarded to [facility] where the subject molecular test will be performed. Results will be reported separately. [facility]ation 2022-11-27 23:08:26 Test Item Value Reference Range Interpretation Comments Materials Received (test k1lqlEOyEPXskPZtFqKk code = 9973) BHTzFLEog0zeYELttZPe ZzEwMzNcZnRuYmpcdWMx DDFsFqHwh8rxx571eVDv o5oyQSRnDmH6mQFmMRQt xCWgN131YROsSQmwf2lo x8MgYWSnxAWyn9F7OBHH eqxdlNd3xTtkI28io5G1 NiiiH3teNILxPKVxE2Ic PC3kJRJeVvs8MRI9PHE3 TLNlLSVpL6NqLH9jSKXz aEVaAFe6m5kxjRqxPLYu OLO4g3ckDUtndrHsTL7b dk5luMc1a1cfddOaLERl LDIuwSUDWEZrA4EbbBve Ad3idFk3zTzeKjcsRJB7 Geo6UR1qhl49zps7lVlw ONSweauaUpH8OQkvLSBq xyehFKc1ZOsqFCGcyCyb MFxtYXJncjcyMFxtYXJn yXX2SDWeeMZnA2IqREQh AGboTQAkcvx9WmWuLm0z eKRjvZuwDOtjx2rtm8ij rBFbIcx4BNFpDvMtPuzs QZgat0Pgm4ofBBZlcn1c ULE1vZAwsUvap0C2cIDh RHPbkLDoijIuRHHfmb12 oBPbyTAvsAWsng1bajJw hLFfpYXoCTF2pZErzbLb XBLbgLWhSOCxHB1ikETn GGDguZ7zowluDKQeAzFa zsmmKQQnuIfxodTxTw2d hKngUGT1IFoeH2hdfE0j TtW5YLcrB5xokZ8lDPg3 CKuycHI5NCGnmG1zXR5g nodpd1iuGmNjES0zyszf j2ilVuHdNB3zvto8d9pd TOY6WJhuONKpDjV8yxO4 NDBcaGVhZGVyeTcyMFxm a780CVC9QaWnCDNwt2Zs U6AdjOfvZ52klKhdX41c XBZtrCfefF9ofXfjcW3u LcHuWvQkMFo7dd03HKy7 djanjOraOPe1ueRpUEYy IXR4XRRqdXFzEGRgO8f3 wwKjVSXfNEY5EUZebAMm CKMxU4y9wzGfDDN3ZOa8 cnBhZGRmdDNcdHJwYWRk YjBcdHJwYWRkZmIzXHRy nPRaqODklMJrpD5ohDdw BZOgeIMgiC6tMGU8QAIe cmgzMjBcdHJoZHJcbHRy pr97LCTjfjAbxVGzkXkn tIJvJAP3ZJIlNNFpPHAr FZL6GATpKyNltnTvVWli bGJyZHJiXGJyZHJzXGJy AEG1YIJdKhAaiqOgHRit bGJyZHJsXGJyZHJzXGJy FNQ1AGXuPxWhxwAbPYjz bGJyZHJyXGJyZHJzXGJy NWI6EYDsIvPelvLkNJjd bHBhZHQxMFxjbHBhZGZ0 I5pnfACrOYUxVCjxfPSj DMXkC6sljBZaANiwMASr cGFkZmwzXGNscGFkYjBc N6tyQERqCyCfC1VbcDu6 MDAwXGNsdmVydGFsdFxj iPUxFJS4HIDiXQYaZTPw QHR0UXLpQyYllzDiWKrm bGJyZHJiXGJyZHJzXGJy JSB2ROBjZlVydoEzZEzd bGJyZHJsXGJyZHJzXGJy VCG7FKMcKbFgdyEaIXmc bGJyZHJyXGJyZHJzXGJy ZTG3OQBhErAyrqWdRQml bHBhZHQxMFxjbHBhZGZ0 K0sltXZfEOEyIDzlfOZm NZZnQ2ehtFFpUVseNWOg cGFkZmwzXGNscGFkYjBc R9usOCLmLuKsF9BgyBg0 NjAwXGNsdmVydGFsdFxj xHYuWIS5FJBqTYUaZNDx TDY2JBKbQmCksiQuMPkq bGJyZHJiXGJyZHJzXGJy TJE3RSAbSlYfqgVbWRlj bGJyZHJsXGJyZHJzXGJy KBY7SCTnVuJjfbDhJAtt bGJyZHJyXGJyZHJzXGJy QRW3BFHkDjBfznPjWPed bHBhZHQxMFxjbHBhZGZ0 A9exiUErBVSvVIsujMSz NCClC7eghVMgBXaeZQYy cGFkZmwzXGNscGFkYjBc R1fjRWDhVzQsA3SnpUb4 ZiKvDBFhmyKenX20Qdoh k5JiOVUfRXN0SXlhQHuu bFxwbGFpblxmMVxmczIw BDbkdlakKPAeHSmnI6rp HbSvMFZezUdrALijj0Cf XGYxXGNmMlxmczIwXGIg QDVvAOTekM4pJnqkR0Iz dG2tRAojCzybB2xuKNXv g5CkqV8uFSehdVXghgsl MVxmczIwXGxhbmcxMDMz AWsuF0loRzFsRXJyyHiv GCzou4LgXXFnIHOlIxsh pmWhTCp6dtGnJFKmtFmp xKSfWBtyzrKjpSxzt5Br ibMobLklYFJmHPb6ofYu lvhtvNp7rEAuyAarIFAy hZlpzI8eNoPyNdFzDMew bGFpblxmMVxmczIwXGxh wwatCURlZAmeO4mkQrEs NHFheWqyOEnlr2FdHNXm BGThGpkrelYuURFcJ39f bGVjdGVkXHBsYWluXGYx XGZzMjBcbGFuZzEwMzNc aGljaFxmMVxkYmNoXGYx IUonR5lnOjMbK9WuZMKj RvXtxLDgG3xjK5NoeBhn YXJkXGludGJsXHNzcGFy HQT0uUNvjoHuhAKxcSOv PWMoYZuzHGE3sCIotnre xUNqkshdIQmqdhT4KGFo YWluXGYxXGZzMjBcbGFu ZzEwMzNcaGljaFxmMVxk FvMwDXHjLKxoY2rtObUp Z9RyNLFwNvYlEbOHSMEl aXZlZFxwbGFpblxmMVxm czIwXGxhbmcxMDMzXGhp W5qaHxBsHMXikGunDJxq l8RbIZQeKWZcHaqqdaJb YMq8ceEmQRZokQrppT20 Fmcpja39WJVvk2quJYDs G3SawOVyBYLyxMIwJQvw MDhcdHJwYWRkZmwzXHRy cGFkZHIxMDhcdHJwYWRk ZnIzXHRycGFkZHQwXHRy jRRrOSY1M8g3uaTaNFBn DAh7riPcRJZwXwYupHSx VVY2NYz0TcygunV9cRFo T6v4LjugodNiZDckkWVz kd70ZBYkloBfySVrzZde uJUcHZV7VDPuQANnIUPu ENW9EYBzExMfkwEyVOpw bGJyZHJiXGJyZHJzXGJy LUU6ZPNlVjHbuoBeXJmt bGJyZHJsXGJyZHJzXGJy JGX8MBMrIeLenkVqAKnv bGJyZHJyXGJyZHJzXGJy OSM9FFJwMnTcxtSnOVqa bHBhZHQxMFxjbHBhZGZ0 S1wvfBVhTRGoJHidbUVy MICeS8ofbMOfJNicXGXb cGFkZmwzXGNscGFkYjBc M5cxHYFnCiZvB7WihHc5 MDAwXGNsdmVydGFsdFxj iXIgSSP2PAZxTGGlYVYx WSW1ZOPmGxWbzqEvFNxp bGJyZHJiXGJyZHJzXGJy TDS0UCCtQzTtjvCqSQcc bGJyZHJsXGJyZHJzXGJy LDH1WWHwWzKtnjRdBSsy bGJyZHJyXGJyZHJzXGJy GGP1WJKqDwUphfUkCOud bHBhZHQxMFxjbHBhZGZ0 Z5cikYMxREPsTIbkmFRt OOVfL8nuaOAkYTzlMZXa cGFkZmwzXGNscGFkYjBc U0urBYZkAgHxB9GpnWk9 NjAwXGNsdmVydGFsdFxj jHTaYUZ1TAApXWDfLUOt VLY5KOOoIbDcjsMhOUvf bGJyZHJiXGJyZHJzXGJy PHX2RPRjYtWqxjMsJKdq bGJyZHJsXGJyZHJzXGJy LUX4OVPgQoNtpsPvABus bGJyZHJyXGJyZHJzXGJy JEC5HLEmCnXjtzFaSTds bHBhZHQxMFxjbHBhZGZ0 D8vmyMUoZXWfSZbngVNv RJZzY4agnUYlXPslWQZv cGFkZmwzXGNscGFkYjBc U0ttHIUbGaRkQ6WklIi5 AxJsYTVbrqPypW79Gbyo k0PkPUGfFUJ3ECowOPjx bFxwbGFpblxmMFxmczI0 XHBsYWluXGYxXGZzMjBc bGFuZzEwMzNcaGljaFxm BBecOdYvQWMhOZonR8bf KgYqD3RvTDPjXkUlEB3j UiH9ZBCdHIuuDCL1NVOQ PIPaRZVZJ2RRIyliILEB O8ZtcFvzlS4iWvLhDjDk UZpcEL8gGBZeB4leyRWn ZNUrDGSzS1wvPePoyM5e aFxmMVxjZjJcZnMyMFxs dHJjaFxjZWxsXHBhcmRc tO69Xlywr1LoMTYcNMF9 MFxzMFxxbFxwbGFpblxm XGbgdbP7TRLdPKbeETYx XGZzMjBcbGFuZzEwMzNc aGljaFxmMVxkYmNoXGYx SBmeH3ybHuFgN0BnQAMc MjAgMTIvMTYvMjAyMlxw bGFpblxmMVxmczIwXGxh kwtqCEYjQWobE8sfCqBi LHJjoQtcSGtux6ClKVWy PYZhWchchhBqOCj9vzTi XGNlbGxccGFyZFxpbnRi kDhsb0DvvbFffOrqQIIc XHFsXHBsYWluXGYwXGZz McHegMkqyR1nUaApXrEz EPcuVH7mMYXlI7rohGHa GMOfHHKlC2sfWjFmpT0q aFxmMVxjZjJcZnMyMCAx TzI2HeMlGjQxqDpkpL8d XmFiCmNnUEnrGH0eYZHy O1qxoEGrVOZkIIDdB7rc VqDwiW9pfXfrRAhiEiTn ZnMyMFxsdHJjaFxjZWxs LPhrcUCiGLRoc1udEAMt XINnlRDgQUZ5pDJgezMw bGovqKkyhA3cTmYdTbHg NFxwbGFpblxmMVxmczIw LYnmilkiQKKfMIkgK3ha DcKeXBTszYlcAPeol8Nq XGYxXGZzMjBccGFyfQ== Addendum 1 (test code = y1avoDLyFDVthRMlNQAg 37) KiwzudFmFJYzaLSiM9Zg ehsrSWuaAU1rAO0irQri lKGfxCOzMVLnErSzu5qq e115cSJjm1yxYGLZUDde ZETCBTk8e5ibFZVDxtax bXj2rIsqK41xj8U6Glnd K00guSHdTBU7VNAsRLCi tBVrQPKoFUW5AQCflABb X7ijQBLgQJ5ylkbrRRfj ILjrAXNwzMN6KNZocCZb M8UfDPMgBThbYWQrpos0 EhVuPe0ckHFleGmsQNhz YXJkXHBsYWluXGYxXGZz MjAgQXQgdGhlIHJlcXVl t2Mvw0DcpBnhQFYuTLF7 qS5qBUUybGNuI2gbfpT8 jFUzGi5faM05gF4rAIZ3 aRSbOJPpr4MvMHDvPTUo d0FfJAPwTE5dZFvrxSBc iSHnxWWxEIO1PW6WGYMg QEVcm01fGfKejEKySKEz ddRmkMYpIKIeVYS1lB0i ciBjZWxscyBhcmUgbmVn LHHtmvUwUt9eXNnesvFt JFOiDRVnmKHrdR31ca0q gAP5v5RqWG6tV8MdTANw VQr9x5fcHpJvpLUvNHRl iuBhhULiHMVgVCQ3zZ0d vuWpVWfpfbZilyUxmA9m aXRpdmUgIGZvciBjbGVh rrCnSV3COWLVDKIrJFM5 NIReQEGvnCVszB53li5q uWL1p6XfYO4jS8QsQLXi AXb1d9qcPgThgJRjNNVi cmDDHY8CHWEoX3hcbdJg MjJDMywgRGFrbyBQaGFy mUF8LGPYp44mvT4wCOBD j4FjsSw9MAOGS02cRZMc D8YVYEsaqJPqrHAxzdM1 aGFuIDFccGFyXHBhclxp DBPvPWHlh5E9CLojJl9a tKT8rU5vAIAsBFJ5OYQh aXMgYXNzYXkgaXMgbWFu iJIfE6F4ojZfMBC8ZPXp aWxlbnQgRGFrbyBhbmQg qINciyGhGN9gyl3doC1p TQmlXT38rW8BOA4QNUah Y0gkzoEkXlZAAa6yFOCo sYVtrWZnDi9hxNLyLP7s PNHxkd7yxCbmZOQclDVz IHBhcmFmZmluLWVtYmVk DJFsSMSnm0L8MSI9e8bt YySrtrXWP7slDU12YVLl q80sVZR5j6S1BTubBJZb NH2oYWWttXtcLEAuVhIt HPPhHIY3FZF4qK8fYFrs bRpjTQSax0HeZ2vqoKMh LEK2GYUzOABlHF85VpHf mIMnTYLbAJs2NLdgDCQg qUYfcuTdDBRhfrL6r8Or RXRvXZCuf03eFR0jy02m MEgxT53hf7TxCxIax5Kd w3GnF2jqbRCnwWszrjTb oLOvSM3dYIGfomVmzN3d vPNyn6DxfDruCBGbC04y MsvyITSabK3llWZxihGr p1BaoyBxEYXOLcflmJRa R0XcK8XnDQEjPBVisuX5 iTKtnkIyNhOwHQ5tVBHS YPfaPGB8MFexiG9kDRFt mXpfJSr5oGLvlBLfzL59 JSMyczDsvGQbz8YyH5Lz pWUil1dkx4rsYwQxKT3q paVzs8SgJUV3YDlcyE0b RP1rRCJflULbngQanaCl aSg1FVm0cAAxv5I8jEWv TOAsVKXgBOYyk6JaDMwl ayGgtoD1fHMphCFsy3Do VWPiFAEfbA47kC6qCW6i fEYhKF1pmITfo1YzY7p3 m5EqAVHrkSLjc8GzzC6u hppdm0RxCD26BLblzDGq g5u5wWtiNKa8pUFyBQMj iJN7vWYbbB21LHphkxXh FrRrQA6lIQEkFAPoFYCe tmAvj5d8VES2aW4fmyXj ZWxscywgbXVsdGlwbGll ZCBieSAxMDAuIFRoZSBt CNhmuJQuZEVxi6TmDHwn UVOqItmdQQFaSMMcJ6VK ESVnNQ0oxUQjPCfyRWXl clxwYXJkXHBhcn0= Diagnosis (test code = w4yckHMmNFJpfTHoRRBb 34) TanromOqRYItoJJkR2Dn fsrvPMxeII2fKY1igAoo fCHlyARhKFIhWbAva5tk t423zKMds1ivLGHSnfql dUf1kKlyM34op9G7Odff C1wcHGQoWLznZCDsQKjm wWLzGBc5AVAjuKFyglLc NbZxVAZkxEUwzUH3AONh QD1zyvcfJWlaVTscKHFf ftN8JSOjxLGjB0DeOTDi RZ5lnorvZAM0FDxiMGHh MKM3OxJgDDSbr6Kyjrf0 MjBccGFyZFxwbGFpblxm czIwXGNmMSBPdXRzaWRl UZobFkgYCgP9JzVvMSyl Q7FtLCSfRaiWL7pEFDUr AHACDyjjK82dpUSbkZPt SY0uOOQmWfA6QgHjMpIf ZfqwSFVoC2PpCFUuuulr rKctAQwpnN35WbXrDfBs r6OtSUB4iscaEZVds8Az kItgqWEnWXbdVoY9WSef iL10YwQlyXxpMbK8MTDN GFJYF6oZAYFKD7TKIlDT UVYGXP0MXSFlAVDMNGJI NIPVOw0gOWfSPBWiALUw E76krYEliLvjWXMntTLb XGxpMFxmaTBcbGluMCBN RFcvRkxaIFxwYXJ9 Comment (test code = r8zfiZSdPAPzcQEpZHUn 9835) WhkfahXtPDYrnOHnC2Vg dyqdCGbnLU5jNV1zlQia aXXqyDGrJXIxBhBzp9qc i084tWBer1guJELWxnnz rPe8dMfuK78ia8U1Yczh E82uuWBtARH0YXBmKTIm uSIsOEAeBJP7HWIicFFw P5joOZSiKF6stkimIRei BXxxEZCqeQD3ZVIprNBc K3RwOVGbHQypEYMfnyd4 QcEkHm1ypOVrxIpvEBqn YXJkXHBsYWluXGZzMjAg Q5EldBm5cYOzALgrtMCj n9vwc5JaR5ofnDobONfe e8LsfR9wFNWgefLhjb4g ZCBieSByZWZlcnJpbmcg lY4jbWi4bLByv51ai3ek ojR6kWZ8YWMPWwKghMah bGlnaHRzIHRoZSBlcGl0 aGVsaWFsIGNlbGxzLCBh bmQgcDYzIGFuZCBwNDAg sZnicMnyX4w2neT9iFLc bXlvZXBpdGhlbGlhbCBj BWhdai2wWEMqMFLnj4Hz vR0jk1b7VDYzEMNllN58 yk5gtSGnj1C8lKWgzJCl h1GdpW6wcTe1BMSuNbM3 dHwnKOMuADYfcUZpM9X4 zU1uGaSoxRXmeS== [employer](s) (test j9yqfXPaMJHopSWfZOJj code = 9841) RcmndaSqMROnbNQxP2Fl cdlnJNgrIQ0pHT1wcVzj jHIefTKkKNTmDfWmp7fu g285vBMaq6loNGUZjypb tGa9wKaaK34sx5R9Obko Y2rrAMQaLDyyZWRkTAff qRBsGRd9XNIhwGSbmaJv WzBbUDOheSWorDU5UYJi YC2jaubbNAdrWFxxDXAz qjD1SKExeVKtH7TxBOPx BP2biaknWJQ1STipBMTd ABI7KtMyCMEom2Xkftj8 MjBccGFyZFxwbGFpblxm zqZnNAZ5fE0qSYNvf9Hn OiAgXGNmMSAyMjpJUzE4 NzBccGFyfQ== Disclaimer (test code = h6gmhZKlWIYtsFLkCvRb 9844) KXKuBUMvh0bjCMLzcLKb ZzEwMzNcZnRuYmpcdWMx LCTwSfXdl2jal660iYNg w5ttPWVsNcA8hFIoYAZr mQVtA266PIErGEkmr7zq e3HgBVZquEVdr3B7UKFT goxdbZe3bBshG25rb8Q5 QihpC1bbIPKqOSQkA0Xs WK2iUTBkEhv4HAS1SWX7 NFMuUNJbM8JoIV3xRCPu wUZxAPx9f5gozRvnBRQw ZFQ0x2meVKaeyzQeKP1w yt1ftNk1w2gwmwXdCNGk JZDgtTOTINKdC2LutQiy Zu9meZo0mTojAtffPUF2 Jby5PC9oxt11zoh2bFpj PACghnomKfL4LZnmGRDa trprUYw8FZlcVFVtyAD8 BFUvwEKoE9DbELXfNF0h wuk9FZB3UNvhYTFhCpS4 NDBcaGVhZGVyeTcyMFxm j634HZT5MdNiRM5qV7Ud w3P8xN7grEBxUIDfcJYv BtLlYXToyi7grBBeNVbl v7ZeWOQ1inA9iVBofQQf VNXoDA44Avzla9OgWnoe SQX2DAFmukBta5Dzw3rl QaAnmzGqS5caK7LmDZHo JMJtGHEaRiYqtuFnq6Od e1LqoLSxxNy2s7atCDYf AALonYzaw1muGXY3UPJm D9V7xXXiv9icJSsvJUPa dYW9viG4TYAelLSeX5Tr jJ0gKTQnLW8ugzj2d8ct NLX5JBncVEYnWoZ3ozM0 NDBcaGVhZGVyeTcyMFxm y863QHA7XxQnNIIad4Ps S4XijQclX75yqTwaS74a CYSruDxwaQ2zoIyddD5d ZjBcZnMyNFxxbFxwbGFp porjZZyylrF6RItyptuf QPFzJWpkN6qaAcIbACXv vVbiPSxhs0AiJFQpVDEm ZvtlriL5WWPPc76sNHZn m6KsQEYzpD5oyJMmHDdc duCxcQZ4XNqtyoNmIiPu cpJnLIWteN1xLMDlWN8l QFMqsyTrbh3tdqIlPXDm DOOwR9GduofnoTlckfYn IXKwzu2xszNkLHG2OQJB MB9AOFFiWZCab76rBCSf hOzkyU5ymWRgbyWmAERb w6ZayL2pfRYNJNFpR9ck DF8bBLciz3KlbTOtiRWc nKJ1QISdo5OpMjSojqRj bMXwsFQyU3NerQgtO6bb AOGqSFEygpVzxYUab5Ed QEGfqRG8yQLaBZ0WIvWU k41hNYMoVRECrjQhXFVk fJtkuXN5gcG1rP8zDtXV ZiBhcHBsaWNhYmxlLCBj u702mj3xvqC8SDFnAPNj yrkch5YsZPOoPKKtoA14 KDQhMRCpqx1tuzdvvDRq odJvP4Ratph9dF1hESUw YWluXGYxXGZzMjJcbGFu ZzEwMzNcaGljaFxmMVxk PvOnALLlVRpmF0ckSeOn ZnMyMlxwYXJ9 [facility] Outside Interpretation 2022-11-27 23:08:26 Test Item Value Reference Range Interpretation Comments Materials Received (test k5xktBEvBCIqaFHjGeSd code = 9973) MNYrVESju6chGJHlrAEm ZzEwMzNcZnRuYmpcdWMx YVVfErDkp9hik569vXKj x5wdRKIeOjM4fMUtAMFc vPFaR465QQQsJBbcb8ad f9ImATPamCClt7M4QNPD bwlfwHm2kChdO37ax4R6 EslhN6toIYZaEBZtW6Ll QV3lJWEyDkz7ZPY5XHV1 FSMjHSTjP3AbLC7uWYTw dHAdTSa4x7rtvJnwPGZr ZDP6k1ycPVdkoiVyEP8w vg4seEj8b1hbtzBgEOWw FHLofJGCAMZiP3ApxWiw Ur0noIz7oZcjXfxhZAQ2 Baq0VR1pyd16oxo3oLcb CGHtntknHhU4XAhkTWOz bdajDJm2DBahFPZocZbw MFxtYXJncjcyMFxtYXJn dMY8OSRpaGJkJ4UpQZXk AXbkYYYqbol1BuQeUa1u aPMnxPwjVPste2mzp4on vMNtFaw5QVZuRiIqUxxx LCwtp4Rvf7vwQUVfbp3a MWB6sDJvhGnre8Y7xNAi WBNiyQNetmUcMGGpig59 iRHemDGflSAuet1zcmXg xOQjuKUrMMW3xHJpozUs MMUxjIKfFLJgSI0okXXf ZRMuiD9locvaYEFlJoQa welwMPHcqGsndvCnAm2a dDcfXYW0OVpjO2impB4i UvH7HPziI1shkL0fUTe2 EUzjfLZ2EJSxeF0yEF5r bytmy6ozEfHlKQ4vgnle b8fbDoDbLO5yjfe0t3pu UPX2CJwxNSOvOyH6uqL7 NDBcaGVhZGVyeTcyMFxm g127JAY6EvMnZTDhg3Fz K9PzaKxwU64lqRaxG08c SISziEpxaV8kxAybmP5m XvRbFiViISn8ji87HBj0 xzsarJjcWVa6mpRcDBMy QWX5MFWprXMsZXOcR0x2 aqNlRMTuBPA1QKIlaZLj KTPrZ7m0ziBqLZJ0JSp8 cnBhZGRmdDNcdHJwYWRk YjBcdHJwYWRkZmIzXHRy lNAdhAJghFCmpQ0vqLzx KCZwzUTihF6xPBK7QKLn cmgzMjBcdHJoZHJcbHRy tn88WWAbjxZugMZafSdj cYWhHGB0OVGvXYCbNXCs NCS4FDKhMfPljnUsKFqs bGJyZHJiXGJyZHJzXGJy QXY4RXYfTvEnmwBdGKhm bGJyZHJsXGJyZHJzXGJy HTS9BKCdKqCaejMhXBcn bGJyZHJyXGJyZHJzXGJy DSL2XNUbFnEbdnAzWIov bHBhZHQxMFxjbHBhZGZ0 T1bhlQAmPMObNAtjkHXt MVHlQ6owfDZzHHnhBYEv cGFkZmwzXGNscGFkYjBc P6pqKQNgVtVsA9PxwNl0 MDAwXGNsdmVydGFsdFxj jTPyALJ5JRZaUWWfBAFa NYV0TFIjYbHabwGdVUar bGJyZHJiXGJyZHJzXGJy UAR9MXObFmOobrEnRPru bGJyZHJsXGJyZHJzXGJy VZV8AMOrKlRytxYeIVre bGJyZHJyXGJyZHJzXGJy PPH8FUNmYiHfjmJaWHsu bHBhZHQxMFxjbHBhZGZ0 X4iweIQwGEGaPNtceFJs ZNHlY0fiaSUxNUncYJNq cGFkZmwzXGNscGFkYjBc L5ptNQNmAnAhN8HmrJh7 NjAwXGNsdmVydGFsdFxj pPBgEVI3PALbLXSrCXMs CUS9ZKNhPzHgyjWuRQjy bGJyZHJiXGJyZHJzXGJy AOD4LFWaMyQkvvUpQWoa bGJyZHJsXGJyZHJzXGJy XLW3ETQsGnMvryPvVXqm bGJyZHJyXGJyZHJzXGJy VZZ2JCFiVaKtjySbDErl bHBhZHQxMFxjbHBhZGZ0 X3vjdJClXKVrVQlpaAOj UFOaH8mfjXSkHHhpGTZm cGFkZmwzXGNscGFkYjBc N9azSPHfAkZbI0ZtqNw4 XpAoKPZgdiWifV10Adzv i7JvMEHhTOD6AHlnEYyi bFxwbGFpblxmMVxmczIw AQykwpjhMNTuHPtgL3zo WqXyYAFjeAcfBMjss2Uc XGYxXGNmMlxmczIwXGIg WIBcIBZxhS9dNjdgH4Tz jV9cVNpoVrmfM9mtCXAf o6CyaG9mRYhjiYOztpye MVxmczIwXGxhbmcxMDMz SBxqM8jqOyWmYQRlrHqg XWsin3InWXLsKIDlAoly tzPsNUt6hjYvOLNxeCzs jCErQHockuVobWums6Rm hgLpzItoNGHfITe4lkOg oawfyTj4qWNkwCbmZCVt sXqcoL8hLgDvDjVhDOxr bGFpblxmMVxmczIwXGxh dgqdCGJwIVkvS1rzJyZx AINmvIlgSUvwr5UaECUs RPFsUhdoonTrISCpF40h bGVjdGVkXHBsYWluXGYx XGZzMjBcbGFuZzEwMzNc aGljaFxmMVxkYmNoXGYx WQzlL7woFtXkP9YcEITf CzZgdJLjS9muN6VapNfh YXJkXGludGJsXHNzcGFy MLA0uNKgxfKytXBuuNFl QTVfRHmxDQD7vWWhirxc cXXrnspyMSulryI5CWBp YWluXGYxXGZzMjBcbGFu ZzEwMzNcaGljaFxmMVxk LnOoPJRiGTveY7haAtPd S5ZnVVRsBiWfPrRUIMQx aXZlZFxwbGFpblxmMVxm czIwXGxhbmcxMDMzXGhp E1drOcSkVXDajVepNLlh j1GgJVCbKUNeSgjavsMk EDd9gqDeAJCjoZokkH08 Jdbrph71ZHJfp3vkPHHz L4QzlLBuOUOgnWUhUDbu MDhcdHJwYWRkZmwzXHRy cGFkZHIxMDhcdHJwYWRk ZnIzXHRycGFkZHQwXHRy tIIsQWT6A8f0ytGaBDGm LUa1fuBiUUYkMjGflTTj WJI4NBr3HvozxdC4tJKw Z4e7MbzgfsLeXGnksIHl xw70VNUxxmHgpFWteIsw aPIvQBO2DPMbGXEmDCHb MER8GGCoEfLravKjNUzs bGJyZHJiXGJyZHJzXGJy VSZ3IHHjTnFdpkKpMDwy bGJyZHJsXGJyZHJzXGJy BLC8TCBsFrAjygAkSIhw bGJyZHJyXGJyZHJzXGJy BHH6UTSrPeYvzoKoKDnx bHBhZHQxMFxjbHBhZGZ0 H7dbtSLmDEXkGZfpgZAv LEHnQ5ryrSFaZWyoLJJc cGFkZmwzXGNscGFkYjBc R2rvPZEaHjTjI2NdlMr1 MDAwXGNsdmVydGFsdFxj eJHgBFS9URYjPPEoLKMr YFB7YPAsQlIxkpExTTgn bGJyZHJiXGJyZHJzXGJy ZXA4JAUyPbWlgyNdPBek bGJyZHJsXGJyZHJzXGJy BBG9YWEiGmVosmAnYHmo bGJyZHJyXGJyZHJzXGJy SUK6TQYuZwVosxPgLCpa bHBhZHQxMFxjbHBhZGZ0 G7rwwVBtQUKsFMfvaQFl BRNtK8lshZDzEVshLTXv cGFkZmwzXGNscGFkYjBc T9slBSFuOnMwO5FaoRm2 NjAwXGNsdmVydGFsdFxj mVVcIGD7GXPbWVIpIRDg DKZ4EFHmTcJrofZjDYeg bGJyZHJiXGJyZHJzXGJy DHA6DVKuQpGefxJiHCgm bGJyZHJsXGJyZHJzXGJy YRU3ZHFrHuGmefXoWMsg bGJyZHJyXGJyZHJzXGJy QLQ8EBZmOvEaavXlZElv bHBhZHQxMFxjbHBhZGZ0 K6erbPHaZVZkWPmvqDGc EWXxT3ftxAXfJKrhXJUs cGFkZmwzXGNscGFkYjBc D5bkXYOoNmDdN2HxzDp9 AdXmGNLfffKlyY94Bhwo t6CtTJUpAGA5OXmzNKsn bFxwbGFpblxmMFxmczI0 XHBsYWluXGYxXGZzMjBc bGFuZzEwMzNcaGljaFxm XZzmRrWlQXXuFGosH2my BsYkF9VaFWBhWeCeCM0p QdO5RTDbQUzcZRV2MNDK PTIjSGBSW6BVDwdkIUEM B9ZfzPfegL0bIiFzMeJl EFkaIV0iPTXuZ2pjwOLl TIFgPPQoZ0zqOeIkjD6c aFxmMVxjZjJcZnMyMFxs dHJjaFxjZWxsXHBhcmRc kN26Jlocb7JgHFRjAGI5 MFxzMFxxbFxwbGFpblxm IPuhvlJ0CYEmKRhwBNCi XGZzMjBcbGFuZzEwMzNc aGljaFxmMVxkYmNoXGYx XMhhC8ngDxVrX0OuFJNq MjAgMTIvMTYvMjAyMlxw bGFpblxmMVxmczIwXGxh cswjEBRnWVonY8wfDeNs NPZpbUgyKXwvb2EmWDWs PHRvKueqwbYrQEx3wyZc XGNlbGxccGFyZFxpbnRi tPqjt0NvrgAmxYzkILJd XHFsXHBsYWluXGYwXGZz PlCxhCwuqM1aFmSqZyGa AZvxES6hTLHpQ7dpzBKl PIMcSJNeP2pkSjDedQ1n aFxmMVxjZjJcZnMyMCAx BlB4AuJoCxHjkAxjlY7x TyYyNyJjWEvfGP8pHCMu B8ssmXVlPQNfXBMiD2wk QkUbiZ6lsMbeCPxyXbNj ZnMyMFxsdHJjaFxjZWxs KRwveZUxKCPaq5qfSDWw JKQlxGJlBKQ8gDHtikHa qPhhgSwfdZ6bOfFpNjLe NFxwbGFpblxmMVxmczIw TBqpseanJRPjADgkY2yl HwUcNOJirAayFStmc9Xn XGYxXGZzMjBccGFyfQ== Addendum 1 (test code = f1hwrTHyKEDmpTIvAHId 37) MxjiriAqMCGakKUoF1Wr gdwyDOvnBP2wKR3ffXvl oEBkqUIsSWCkTnDvu6mz o042sFWes0urCNQEKMit MFNQKIc6y4ylICBVpbei tQe4sYiaT83at1D7Rxnz T81clXHgXYO2NMPwKBMa iCBlNNNxVVN1GBZwzENw X0utXZYbAR4wojrkEDha AIbuSPJzgIV0LFWawIKa O3JhTFZnXFvkOGQztgv5 RhVsGn3wuOVtjFbyBQtx YXJkXHBsYWluXGYxXGZz MjAgQXQgdGhlIHJlcXVl n6Nim7WnnDaaADQnCMU7 gR5rVPZczUSnC3zxgcW8 qHYfVy3jmH00cS8fLOD3 eUUdLRCsp3RlJRVoDMQv h0FhWOOgIW4eZCluvPVw pFQblPQxTGC7ZW2QXJGo CHMzu57kMqFzhBSrPZZw lfFbcRReOXTdYEK2bC9p ciBjZWxscyBhcmUgbmVn JOKcksGqWl5bHUvqtbTd TGIoPJOxdZEtdV31fm4a gDU2z5GgBI9gN3PhXUOj HFb3l5vaIqTtcTCzCNLu uyAsoBLoMAGaARD3zM0p bdIrRHxfudUzimSmzZ8f aXRpdmUgIGZvciBjbGVh cuKgAX9SQCEBCHSlQMU4 HEOwGSDezQWeoF57rv8g cWO9c3JcDO1yP8KzIDRf UEx3e7snZbMtdLBhDRZx ifRPDK3KXGNwW4bpaqMy MjJDMywgRGFrbyBQaGFy pQC8HEPMu90qsH7zJZYM k0XfmZj9BIBFP17zQXFr W5SQBGpjyCBusWIwqnQ4 aGFuIDFccGFyXHBhclxp LWVbXXGml7R6KCvoPn4k xNV2dF4hWULsAKP5ZYZc aXMgYXNzYXkgaXMgbWFu qAEzY7H4gcVgDKT6IPXl aWxlbnQgRGFrbyBhbmQg oSTwivAbST1nbu0rwM7d UUgnKM49wS8YEQ9BKXyf L0ylgxFaEzVDCw8yWGRv hTLqtNKpPj5klKKvYG7r YMLjex6qkYuwJNJuoEIq IHBhcmFmZmluLWVtYmVk UDUkXJFyl5T7AXV0b9xz PnNceiRJD6rvZB83VZPn o44vXLI1m8S7JLvjHNZl AF5uQHRleMylAJVcXyZo FTTxXAO5TXY1aD9qFJqn yJukPZWwv6JqK2ajhWXp JEB2IUVpLHAmCQ38YrOd zPVqPVBbQAo8UVvyFRKr sZQznwVaKSYpovT9b3Bu MMTyMKIoa31xIA2fd96y QYtfP29kq0YaVtUjf7Rb x9JbC6bhiENapMlfpeWg wQAmGA5uHEAtdgUbhJ7f jUBxq1EvjPjkNOYtB26t JmnyFCWubM7elTXuelKd y9ViswYbLNYGQytviSAk Y6MgN3UyYGHhBGYrzsL7 cHXsjfVkQkTgFC5cDZKH XYmuPQV9NWzroH7vIVMe qOgdYUz7pBByiDVifI50 WGErsmWrlLYvr2RfB8No kFIun2rvz8tbFaOsZL5e rzUac0MaDJP9ATzxnZ0u BO6zELTmkRIpfzNuyfAp kSl9RIp5qHWxy4K1zHQn GIAyVFSfPZAfn1ObEDln djMtjiR2oTVpwZDds9Cg BJAmTNOzsU66tB6sDV1x yXTxQP4xfLTqo4AnH1a2 z5ChZHYqpKUhy1WggJ7i aoqzz5WdKQ15WFotiJGq n5s9sTyxFXy7bLYsXTRb rZX6yWEgeX16JYpoxkVq TfOpJW9jXFWyOPLfPNRt zkIyi6g7YMO0kD2qjrTg ZWxscywgbXVsdGlwbGll ZCBieSAxMDAuIFRoZSBt JLxkiJPtIDTcb6BcOKjr LZHhEhdgXHWgNVIbN7CL ZZNcHE5guLOzIEeaCPPy clxwYXJkXHBhcn0= Diagnosis (test code = d0gxrBSjQJHnjUEaQCKk 34) RsujtxGxTUQbpTBkQ1Ic bqsmYSecHT8hAT3diMsd jPSakNUnGUFqNyTsq4nn f579bIVwr8qvYRPHtnzq vJo9rGurW75yv8R5Zxzr E1yaHDOuEEllXRPmODdr pOMoUCo7BDThqWTxrjBq PcCfRZKqhNUiiXH0DDFw HX5oxaxbRCvtUFhbTICa ccP0KHVxbZDrT1MwQQLm IE6fxtcfCGM0SLglIIMt ZVJ3QdUqKZUyd9Abvli1 MjBccGFyZFxwbGFpblxm czIwXGNmMSBPdXRzaWRl IPonBldGJoS3JvSkIIjh A6MnUPUuQduAV3dLJOHb OILSZbnxO18loGVylUYc IR6mTBMiGhP7QpAiWzNr JbwrXHRvK0OtDOYaqbbk qOnnFGxdnR54OuGzHxDf h1KqJSI4vthaKLXqw9Sy yBladCYgNOtnVdE8IRzb eF00UkEebLtsBkG4SZKP KFCHF3zYJIIXR8FOIsKE VABZWA6YBCHwZWLWWQQA GWKSYl5iBAcRJLMpHUDg V39sbQKnqRauFIIugBNb XGxpMFxmaTBcbGluMCBN RFcvRkxaIFxwYXJ9 Comment (test code = h9yqeIOrTQLxbTUyWUCq 9835) BvvqqxKoRIPoeVSpN6Zm azjfCClxJO6pHY7dcFzh jFDsjXYvPHMsPtHoq5bg b289wLQyk8scUOJZmxxm zOk0hTwuO42et5T8Cqgl U91ssFQyNEN9XXOrTPFs cKDqJHYdHKJ5ULVrqNSl U6ufBZHtBB5pndnqPXlr QVrgBWLvyAC6DDLyhSAu H2QmTSKxDItsFLNrxzz5 FlUbOt5anKXuwDvrOAwk YXJkXHBsYWluXGZzMjAg M1MtyQk7oFJfRFkfmSNr e9bth7QpK3werYaaVEac g9MztJ4dCOGpwpXtjg9m ZCBieSByZWZlcnJpbmcg nH2mlYj5aDTwz53uj0jp gdX5oET3DTOLZxOozSlz bGlnaHRzIHRoZSBlcGl0 aGVsaWFsIGNlbGxzLCBh bmQgcDYzIGFuZCBwNDAg uYtipWuxJ0y4gyA8dNAt bXlvZXBpdGhlbGlhbCBj EAzbyh7pNIIfOSVmp2Gq cX4hi8i7RIJdNHApeQ19 rj2kyUDnf0R6oCGlxSVb r6FaoN7kzMd3BGLuJrC1 hMpaBXHrYNKveJMgF8J8 gY7rRiGelHJyuJ== Biomarker Block(s) (test t5seiVPfQUDsrYNjHQBn code = 9841) MeyapnQxMMBrcVTyZ7Ic witlRVsbKY3pXQ3yqEzt fVDvbREpGUJlNiLxx0mc g934fRXuj9tzMPIXuhts fWk7bQjzU20xw8T9Vahj O1rnWTHxBWohYMZdLSho eIHkAGi4ZGXjqIXwtgHb CpFiPTJwiDIveBU6GKVv YA0mhrpuHVwmIQpaJJEs aeW3SSFtvETaL6XfTPWj EF6tlzsmWSD5RWzyTOHi RSF8KvItBLDqa4Uxzdt8 MjBccGFyZFxwbGFpblxm uxKkFWN6zS9kDUCha9Ty OiAgXGNmMSAyMjpJUzE4 NzBccGFyfQ== Disclaimer (test code = a7fwtTOdIQZxvSViAhIh 9844) XLOcJOWpw3zdAOEcfBOs ZzEwMzNcZnRuYmpcdWMx GUQcXfAlx7teq945sWAl m9mlMAExGqK3rDHmHFRk bYQnF467ELZzOOkuu9sh h2CdECRejXHah4Y8BKAI hwqikMn5yLdeX59jv8U6 VyqmW7beGWVnAWAzG5Kh RP3eQUEuBoh1CZF6LPO0 DLHoGWTeW2AtLU3tUGYf fVEmGPm3h6szaPviYNYh EES4r8epMOkleeTkIU0w hl5mlTp5v8fnwaHlLZZh KDFyjYXWENWwX6VikBia Jj3caGs7oAmsTuvfFPU0 Kfm5BC5yrs14szb9yKeg UIHfsexgLfM2WWgaULTr fgvyFDd8IIejNHHyeMB5 TEJfuFXhQ4CaBNCzNJ8h jvv4KVO2KPlgOFVxTpO8 NDBcaGVhZGVyeTcyMFxm a117YWR2PpVjTC6uV0Fo x2O9jY4rsLXwZKHwqUWn MrEmKKSosd8fxMJgMKgg p0FyZXW0rkI2dGWjoZHp XMUcZY72Zbcan4DpRchr WIB3MBJsafFfr0Ewm1fr NvTgeyMxF7tmH7BsXBZz CPTdOBAjEhAszkQpf4Uu b0WuuQLdkQz9l3utYZXy EDSmaEmzp3rvPPZ4QOLk G4X4gIIae3tfQFwdNIZs bIH9jsC1QDVopIExH5Ws kI7kFNGpCJ6ypfo7e9xi NIT3JJykXOYuUkV4bpL3 NDBcaGVhZGVyeTcyMFxm l971VXE1SfRuPQVfs4Ky F4SelCqcH28qhMhgM93z KSCdzCsniX6xbJakuW2d ZjBcZnMyNFxxbFxwbGFp drbeLDbytnR1KPtfwkqp RMFmGUdfL3xsHrMhBEJx xPwxNGxdl6WaSKShBSFl BikcbnE4FEJDk58sXHHo w2HeRFMjtU1zlCQcWOfe rzOgvHG1JKyfmzYrHuNm uiLiUZFqeE3rWKSzGP0y GUXqwkOizf1nfaHgXLLt IDSgC6AehfcxhHbuwmXb HCJbvv5lrfIfRWY2PDIU AR7ESFChTKOsi71eVOXk aXjtkA5cgHYkgqXyIEUn s4ZnmU4sqGWVSZHqN6xi PY1uPMaxi5QbfUDfjAKo yOK3WCVwz8MkLyMediNb yEPzbFObU4DleWnfE0bv XAFxUKVwuuQytYDld5Ps DPKjyNU0wUCjIP6JEoDZ a00bFJZnOCXIukOcLKNp dCkylXS0skL4hW4qIgMO ZiBhcHBsaWNhYmxlLCBj b656nd0jryG6YKOjNLQk sxsio0YxAYZyEVFnyG55 IPRnVIKhmq7glagsfDZp vvVoD9Eezck3hW1iYSCm YWluXGYxXGZzMjJcbGFu ZzEwMzNcaGljaFxmMVxk YlJgEKAhWUgnL8xvNeMk ZnMyMlxwYXJ9 [facility] Outside Interpretation 2022-11-27 23:08:26 Test Item Value Reference Range Interpretation Comments Materials Received (test r3mifOJrFSCzdZVlKhEf code = 9973) LXUlUAYgi3zuBRGxiTEg ZzEwMzNcZnRuYmpcdWMx DLIuEzEyb4zrp939mDMp n4hyKOHyRfP0oVExFFCb uHJeN348XPDjLLkzl9km c6SnFSJcjUHuj4K7QGKZ vnyreXr0mXqcL52dq8W8 FaauG5moSCTqKDYnJ0Fk UE5hSFTiDyf4RLK5UHL8 DFTvIDOpZ9PjHK8jYJDr kKLvRSz0w7rhkYwgGQBq UEL8m7wePGnnreKnRS2h zp9tsEt8u2fketShYKWa RSMiuKNJSJNlD1ZfqXxj Dk9iiKp2iQluPyzxNTT7 Nzz8XU1qmm35cfz1qOns RGZmuksxZuJ9HVljLSYm gtcvZDh1CYmpMYBedPoj MFxtYXJncjcyMFxtYXJn hGE9CGJxxJQcB0IbIUUs RBcnDRZlbld6SjVnNd1f nKPyeHpvOVozo4ogm9yz fABnAoi0IIOdDyLoQeag BAojp0Xpy9jrKAZiax8i OKB5rJHetNtyt0O0rHLt RUWwqTYooiNuBHFost45 mHRyqVTvaSJtmr4ntmWj pOWvzHNyASM6cFJivcOp VQYgmCRmXXVgIL3spYGw BQTnwJ0qclsnNWWeApXx dbwfJWUvdOkdkuAsQl7m jPvfITO3HYxiQ3okdQ1u XeU9SJcyN7cweG7rPSa0 XFpuvUL4TCFccP8jWP6c qrnzr5dwTlEwPY6burid g7tbOvEpQY7jslv5l1fm ZAK9GPqqAEYqQyP1iiH3 NDBcaGVhZGVyeTcyMFxm m882DXF1WjUjAYTqv9Wt T5LpdJzsC74yiYavK27u SSAgmQqvaB6zeOttbW0z VnQuYgLhJSb8ut22KLf2 nknabWwzYNw1ghBuXXPb GMG0NGGauUJyWFHoC0e0 siRaYGJgLAS2PIPyhRQf MQLjS6y9udAlUPT1ZFv1 cnBhZGRmdDNcdHJwYWRk YjBcdHJwYWRkZmIzXHRy mVBphSQinPMvvP7mrIdz XFOslXJgdP3yHYM9FMMv cmgzMjBcdHJoZHJcbHRy dn42ERDpabJzuCRzzExe qALkKHW7PWPeEHXzMGOv WJH6GFXbIhIbwzKsLFen bGJyZHJiXGJyZHJzXGJy DCU6POLcAtIqgnYgZPub bGJyZHJsXGJyZHJzXGJy FYJ0KNUmXlWybeGnWYlb bGJyZHJyXGJyZHJzXGJy SXG3YEBlJxVptiMwUIro bHBhZHQxMFxjbHBhZGZ0 H8phiDJpSRAvRFbfpRHg UOIoH3qamFJvQWxjUNRv cGFkZmwzXGNscGFkYjBc M4qfEOSkYtDjL9ZapWc1 MDAwXGNsdmVydGFsdFxj vMQdSIU8IKUxYBExSXBg NHV4EZPvTjRvssMsWHnx bGJyZHJiXGJyZHJzXGJy GWV8IHKqOqAoyzGxGCdk bGJyZHJsXGJyZHJzXGJy WQF5XGLhFzCyfkGdTRaw bGJyZHJyXGJyZHJzXGJy UNG3HSGaZaNysyGbQYjx bHBhZHQxMFxjbHBhZGZ0 V7uocFBjYCVnUOlkeHRi CGShS7njvOCmYSqcRNNk cGFkZmwzXGNscGFkYjBc N7jeGSCmQpXxJ0YblNu5 NjAwXGNsdmVydGFsdFxj dOKzQQS4OAIpBDPvZKCo BJN5RJHrQaDaxfObXKes bGJyZHJiXGJyZHJzXGJy GDP2ONYkBnBiqhVxBWvs bGJyZHJsXGJyZHJzXGJy KOT5YRTcJyNbpaLaDBst bGJyZHJyXGJyZHJzXGJy PAP8IOAkBpAmncTzAKko bHBhZHQxMFxjbHBhZGZ0 W5diaBTaPQTxDQegzYSh IZWeP2tyuGQkGSqsPINm cGFkZmwzXGNscGFkYjBc E0roWTWcNkNwC7WipPg3 LhUbKRYurbVviD33Cokd l3GnCUKwDWK5AMepXKmg bFxwbGFpblxmMVxmczIw MErcmfgaSFDoSVnnT6dp XzBqUGHqtIivLWzlp1Ar XGYxXGNmMlxmczIwXGIg CDQaNCUsvI7aYxmlG0Ho tZ7uMAbxIuybQ7hkRJDk i8KrfB5zQZgwqXXxczpo MVxmczIwXGxhbmcxMDMz HAyiL8nqGcTtFWRccTxx KQspn7JaISTnLOYlQhmm okIaQDt3iaFrSKEuhPif dOScXMgryvAmgSybo7Ox zpQhvTfjMTIkXNc6mlKq ovkueIw1uYGfeZxdXZAn sJhriM3uQoVkDrPjVFiw bGFpblxmMVxmczIwXGxh cpneCALuOPvzN2cqReZi PETxyMyrMXswm5CmLZUq GZBvUbkhsjEbOIOdR03u bGVjdGVkXHBsYWluXGYx XGZzMjBcbGFuZzEwMzNc aGljaFxmMVxkYmNoXGYx YDfqN4lfBlXdX0FjWKWj KoYorTPpP5eeJ3QboZsd YXJkXGludGJsXHNzcGFy SQE7sOAwzpHziBEbyQNp ZDDyGOglMRT9hHSefimn dFThwxfvXOchucS0WRPr YWluXGYxXGZzMjBcbGFu ZzEwMzNcaGljaFxmMVxk QhJpPNXhRIehP5idWvOx Y6MpCEDkCuOzZgYXQHFb aXZlZFxwbGFpblxmMVxm czIwXGxhbmcxMDMzXGhp G1foXlMxLQOfkQnmDGer l0HjLFEzPSUsCjbkryQw TWx5xnZvUPMxlGmprP90 Yqgedl63NCUzf1hwHLPk H0IxmJKkJFIqjMMePXch MDhcdHJwYWRkZmwzXHRy cGFkZHIxMDhcdHJwYWRk ZnIzXHRycGFkZHQwXHRy qAXsYXP5C5k2gtUuASZy ZUr1fsZkKLWnSqDhpIRx GNY8YGs3UicknnL3xURb C3r1UycprwFaGTzfkHJv ld02BJZecmEkjUTsoNjy sVJoOFT1DSUqWQEjHJPa NNM2KOGlNcQceuAkZIez bGJyZHJiXGJyZHJzXGJy YAC6AGTpXbWbbdWlTNqy bGJyZHJsXGJyZHJzXGJy KBP3PQTfWwLifdVjPXvy bGJyZHJyXGJyZHJzXGJy IZF5GZWiTsVmbvXxMJih bHBhZHQxMFxjbHBhZGZ0 V3tyqIKsLOPnNYthiVSu MVGkH4wtlROgVGajUYHx cGFkZmwzXGNscGFkYjBc F8wfUWFwNdFjR6RbiXs0 MDAwXGNsdmVydGFsdFxj gEYuIJK8BNEnFYThGXOt JIL7FKGpIuRcmvEeFLzw bGJyZHJiXGJyZHJzXGJy HPC0ETZkXjFbagMjNSfi bGJyZHJsXGJyZHJzXGJy ZSU5HSQkHrTubcXbKUpc bGJyZHJyXGJyZHJzXGJy DKI9SFSfSxYwlsZhNOii bHBhZHQxMFxjbHBhZGZ0 P0ltcXVkYEBtUMybfUBl NKRqB6ldiCJnSUraDJVj cGFkZmwzXGNscGFkYjBc Y9buUWFtCnVxA3XprXm4 NjAwXGNsdmVydGFsdFxj xLJpKIY4ULMwESNpRURc AUY5GLVqBpTpurBqEYno bGJyZHJiXGJyZHJzXGJy MHE0VVJxLkEiusNgSEng bGJyZHJsXGJyZHJzXGJy AYH4NZGhEsKrshOeAOde bGJyZHJyXGJyZHJzXGJy OMX6XWJxJoQadlIxLBjr bHBhZHQxMFxjbHBhZGZ0 K2axnQElNJRdTEwaiKXk FTQwJ3pelJYvYKbtTEAg cGFkZmwzXGNscGFkYjBc K6xdMVGePxKkG2UqnNn0 KsDqVLPpdwZsgJ19Emkv r9LwNLRtSBJ3YNewKGtq bFxwbGFpblxmMFxmczI0 XHBsYWluXGYxXGZzMjBc bGFuZzEwMzNcaGljaFxm ZJmjVmXoFIVwIBbpD2ha TuIrY2PpLPUeIjJnPT7l FcH5HJNbCEiqOKN6ZZVR TAHbTYYYV1ZCBbbaMHMR K9AlsLdmxY8zGkIkSmBd RSpgYN1rNFAtS9qdiZZn MQFkOYJrZ2uxFtZemA2v aFxmMVxjZjJcZnMyMFxs dHJjaFxjZWxsXHBhcmRc jC62Obopq1CiXFMlMDZ0 MFxzMFxxbFxwbGFpblxm HSvzoxF3OYXwBSvsXYMw XGZzMjBcbGFuZzEwMzNc aGljaFxmMVxkYmNoXGYx CGwgY4fkPmGhA3XxJKQw MjAgMTIvMTYvMjAyMlxw bGFpblxmMVxmczIwXGxh zifwAJUoGHgeC9qtElUj FPQafGbmWRsqz0VjDNOs AJXfRbozbvCoJBm4ivBk XGNlbGxccGFyZFxpbnRi gSnla6EamdOskKgoDAMu XHFsXHBsYWluXGYwXGZz SaFncDfqkE2lTkUkLlYg SSrgLV5pTRVtE3blrXNc EDVeWGMaA2scRlLobD6e aFxmMVxjZjJcZnMyMCAx YwD6BqIcIsCaeLkstG2f NcDaNwCoURfaHX5oKSQz G4xfhTDhRGNwHRCpB1jc GoLnoM4cpNiuMGzwRqZt ZnMyMFxsdHJjaFxjZWxs WInauGBdUCYdv1aiYCMs JCHpmNQiSDX7dJUpfnWw iTfsjOhwpH5cRnSxDnKs NFxwbGFpblxmMVxmczIw ODglytunHLReJRumL8lk CuLlWJKvzJmzAYvtz6Wd XGYxXGZzMjBccGFyfQ== Addendum 1 (test code = p4wfmKUjXCQzyLXkCLQm 37) QundhqLsDPUpdBOzR4Bt ikvoYMxpGC5hXF7kgUae eSYgoRNgYDFpMmLkw6ms j191hKIak2gcGDEUBVwk BDMFIQl2j9sbBWDKbytl lQi8aUhhF83uv6O2Xoqz T83ehTVpXVZ3XINuAVXo qYBtVVMfCIW0UXSpsTBh H1ylYCGoAA4tiljtJXqc HEcxZDAemDZ6WVAooZSn Z8DmXMNiGUhyPMLxbsd3 AhDmDc3jcQKhxEqsTKgr YXJkXHBsYWluXGYxXGZz MjAgQXQgdGhlIHJlcXVl a0Uln0ZnzGcgKFReWRN6 eZ8dRSZugYGsY4oklmC8 qEDaJa4tmS99bR2hGQJ4 bJWiKPYrd0KvFLItOQRd o6LbMXYiWH3jYYncoOCx oFWfyZEdHZV8OQ1SGSDv YPCjx72hMzEksYHaPCXy rkTgqSPzKICsDJH2qK6s ciBjZWxscyBhcmUgbmVn ICTeafZfRi1sHDhnptRa YCEjAAGsnEAmbJ12zg1n xZF8m1FgCJ7gP1TcAEUx SQw6s5xzAnWnyPVuJEWg rkGikTZmMPUiEYO0iQ4b qsTyMVsnayLurvCojL6i aXRpdmUgIGZvciBjbGVh xjWtTH2OPKYHLCOpOTV4 RAMxVLWmlQPmeF03pc6c xOC6h8JpSF1dJ7QuBCSc YQw2a4bxUxRvtCWtIYPt eeUXWI8XKBLbK4jdngGj MjJDMywgRGFrbyBQaGFy xEL4QVIGk22bdD3fYEDC m2MbqTq8ZCPCY67jYARh Q0XBFActqAEjyAKzuvC9 aGFuIDFccGFyXHBhclxp BHXoQXVeh4I6ZGjnWk2r hNA4pX9lVSKzDOT8PINh aXMgYXNzYXkgaXMgbWFu zTHxT5M3jmSaAOC5EBDs aWxlbnQgRGFrbyBhbmQg kZGhzcJpXO4dld4kdV8i PHmsDJ01mY7COR3MHAkw Q6fyenBtOcEWDp0jEJAl rMTjvGMjPc2btTYdPR9v EKKvqh6mwObiCWHfaTOi IHBhcmFmZmluLWVtYmVk WXAaAJRlq7K3TUG3m3ks ZgUmfoKRQ3ntET18LUXp a20sCYJ2t4P5AWftKXAw YP7hNFKpyLbhWFHqDgAl EIGdKVS3WBX8aL5bRRie vIwgUVNvy3NlP6bclASm TIZ5KTVyTSUmGO79WhSh zOSeFEBwTSr8BJjzPSXi rQDwnwRiTKKwzfR5h4St QATyNESjq56dRK6vo27k LRtiM20kb7JuVmPrg1Mg p3OsN5ennYMmwBjxlzCf zWZyKR2vYHUydpGqoE0i jCPxv4FlxXtgIXCzE93q AtkbLWYuaN4qyZUariMe k2QotnQgSAXEIzpukOQs K0DhZ2HjENNiXAPzjoE1 vPIqouRmToJvDK3zASBK BMzeFHU7LJodnB3zLWAv vBqfSRr3xQDoaAJgdT35 OHDmvmIbfMKvq5QtN6Jy nEOhv8eoq4vvNpGeLU3m zaOrl3NnGZJ1WIvbjA8g NC7fVHHrpIZkviMuqjLx jJa5DUa4fCBeo2G2iBSi EPNlXYMnWFUpo5HrCLkx qsCxmvG7iLCixWAws3Zu TXBeXAWspJ22oI1eXP4y jKKzGA1myNBzx3ZwJ5y6 i7IsJWZorCEct8EzaQ1m ofsbu9FxVO55BLawwVUt t9j0pHrhKNv6hTNrNWOa bLY2wTGcjE63KLmubiPt LuRiRF3aAHLnKEZrIGQf xlZaq0b8RXR6gX1plmMg ZWxscywgbXVsdGlwbGll ZCBieSAxMDAuIFRoZSBt VVpdvQEdNRYce1ZoJGao YIEaKlegXRSyNJMiP6IB XGWoLB0djOApWKznVRUd clxwYXJkXHBhcn0= Diagnosis (test code = y6lhdDZmWVHwfPQgNBAs 34) YrulrxKwKTGfiVEzW6Ve mswxXTkdLO8dRU7lqAqx dNTquROyFEFzOrZvt6km e766uTErw7nrCAGGdiyn lMk7mQsgB44nb8T7Cwpx Q4vbIBClWXcyYAKdZEei vYYyOGw4HDRqjVQlxzBy LjHfWMAqoZOzfAB6BNVh PP7lbaavGPuxWKerQRZq vwS3YUMnkQZgH7NrMGPl PQ7xreoqSXW7SErsJFVy GAV2OfJsVGPue4Muqes4 MjBccGFyZFxwbGFpblxm czIwXGNmMSBPdXRzaWRl BBhiHgcIDhE2CvByYQis S0TpWXYwHufOW2eRNBSp MCQRXuofM88mcCQkmAVs TI5xQMKhElS6LvRbMvQw BgtaMJTaX2HtUUWijssn iPdqUVocvV40NmLiFmKm g5NdOTY1ooqwLPKhc7Uq rAfmyDNpULirZcK3XXht fO33JdXmhUggOcD4ZJBS BYHFL5lUPNDMF9WTKoBA GVQPNC2RNKBnBYUONMIM UNKLGi1xWQuYKUXcTBUu W90mtBOqeKvwCZOgcCOc XGxpMFxmaTBcbGluMCBN RFcvRkxaIFxwYXJ9 Comment (test code = u5rbfESaOHYlqACxEDHa 9835) HxrqqqFgYWYyqXInX5Ir isglRRejLK1eBI8ncUyr mWNnkVGlHHIuSkXvd3kp d757jUSxf5euKIYUclvr jEj3eBixR88xd0F1Zwfh I65vvDTeBRV7UFOhJETf wXFfNEJjSFQ0AIEvkHWc M2rkXOAbOH0unkxvFZhl ZYaaHVSxvQA6WOAesQYn Q5PqKOVqELriBUAxlom5 AtXfSr3idLTlhBbrPMij YXJkXHBsYWluXGZzMjAg X4CfsXx4uWYiXQoaaEVq t9vor5HeJ8ksxElhKMgw o7ZoiX9xWQGfxdFhrh6y ZCBieSByZWZlcnJpbmcg jN8osQb8tCIlm47ph2cw evD7wPJ9TUUWDkKcoRvw bGlnaHRzIHRoZSBlcGl0 aGVsaWFsIGNlbGxzLCBh bmQgcDYzIGFuZCBwNDAg iBujiHymU4o6uoK0tOLy bXlvZXBpdGhlbGlhbCBj NQaqxr1aCMZaHQUof4Wv oD3jx0m3TRVeEOOkcD48 cp6soZNsg6S4gIIzlOUr b7KfpO1gqEn5PHTvXsT1 jOdmZWJfNBEyrCSqD4X4 nA9lFkKelGFzzW== Biomarker Block(s) (test h2stwOHxGLFxiEDiUTZv code = 9841) YadxekHgYNWqbRUhF0Js urluDBerWZ1gZN0skPnl jUDvfZPsUSAqPfVsb3tc f516aIDgh3coENOSanbe yHk0rNnoK70gp2A7Dghp M9lkUXPxHEfpPCJpSYmo pGEcVFc4KLBweVUvalXp OeYhYDYcqDGezBY1PMSp ZV6imhruJZhpIWlaKGKo yuC9HFAtlOWgZ1LaWYHm RM1lhbrxLCJ2DYwgKCWs FAI3FgYwDVJbj0Zknbc8 MjBccGFyZFxwbGFpblxm cdGjYRN3eS7kZHOpv8Qi OiAgXGNmMSAyMjpJUzE4 NzBccGFyfQ== Disclaimer (test code = w8aodRLxCAZfeKGiJnNs 9844) XMLuEPDfs0zkHUNbaDGw ZzEwMzNcZnRuYmpcdWMx GLUqTbMwm0jbj439iYEo m5dmXVPkOaI2vFDjCPTw nDFrQ145VVBaGFyjm8ls b9CeXFVrkRJrt9W3WINI dwixeQg4yIkoK73pz5E1 GesjJ9qvZFWcKNByL8Ku HD0eVNEnAyp1TZZ9ZSV4 QOLzTZAjM4KpUD3mFTXa nOKwVPk9d0jifEpeLJQn HEJ7j2rdQWsaagBqUJ2w pa1nbPd0e0jjbiEsXDVa ZOIpyXHYCACfZ5ZogFbd Uv4muDr7nImgQjdxHBU0 Oaf4PT4avq98dmr4uHqp ZWGwwauqDhS8WLlfQNTw msgmAVa9KCyaBPUalTY6 EGZclXYaK9EnUIMmWF0y ksa0QVT5XKxxGVQzKfU8 NDBcaGVhZGVyeTcyMFxm r109RXL0XfMsJH4eA7Xu v0H2zG1bgQSpFMYyxOUo ZcOcXUExxm7ykNXoLJgh z7VpJYM7rgC3iWRlrHIw DJSdFR04Uiuiz1WyJwte XNM8VDMxbyGwa8Swz1sx RdGtneOjL3fgQ9YpIFIa KPKiMIWiWyJeaiQri1Ns g1OehPGwePr5e0syLMJr XMFdiJsst0ubYJS5ISHa E1T1hVXuo9djXPclMPWz hXO9noI4RPFsoKSpV9Qd pY7dEUTfGQ6ulkb8k4bk NEQ3ONujSKWeCgX2llR4 NDBcaGVhZGVyeTcyMFxm n794NBL9MzFzPGNvx1Mb S2XswAywG49swAykT91s XAIxxQjwuE8ydUxtxG6f ZjBcZnMyNFxxbFxwbGFp vmnyQFztnqL2VHwdsmlm DWIkTBasV8qnHbQvJEKq eTvhCDmfc3FoHWFlAUPw LgfnjqJ5IJEMz84fXAQq l5WiUCHndV4alHKbNDgo khLsbEZ5MNwwwdFeZmWd wbKmYPHzbN0tLZSpJM0v DBXricQqtg0fwhAuUDPv QAJpY3ZiydvvmZbjkdDq EBTsju8dofZzOUU4IVSX VY5LMEAbKAZmo19jRNGc qRbomH8gpXAnkuQdPRUk o4InoL4lqJTQPYRvB6mk OA5mCPaal2CmhMQmpCCc cUM5ILPek5DpGzQiebZe sLBdzCHyW9YomDrfR9cb COVfDJGhdnQeeMExp0Pr PPLbnNM9sZXmIU8HJxEY p83hUUMdLSHFdxRrYSZv qRwkrKN6gqH0yU7rClAV ZiBhcHBsaWNhYmxlLCBj p764ts7xcdV0ZVIfVXBp juxwy6EgEDFzRUHrnI12 XRXjEPRuwk0fkuoueORd vqBwN8Kheyp9tT6mJWLg YWluXGYxXGZzMjJcbGFu ZzEwMzNcaGljaFxmMVxk WlVwMDLuNMlsH1atBlUq ZnMyMlxwYXJ9 [facility] Outside Interpretation 2022-11-27 23:08:26 Test Item Value Reference Range Interpretation Comments Materials Received (test i9jqkRTrOAUuqBTtYzJa code = 9973) TREhQTUry7uwKZQaeEBe ZzEwMzNcZnRuYmpcdWMx YAPtMyIms0ifd642sFJr x0xrJYGvUrS3kTVuUERe fPMtN568AHBhOIkom4bk j5McZGFgaYZtb7M7AQWP mwixuFo2yXezD52zu5F2 FjnmV6mwCIVvXLJrQ1Ze ZY4gTLCdDdo5GSL7ECG9 UDUuFJPtJ7NnXT8iLTRc iHTdDTf2k3wipRsdVYSg IRJ1g4kpIYwbsgAcTT6h xe7ofKd7v5ukaqEuVIEd WQOqoHSBDYBrO3GniUql Ic1ahDw9kSgjNjvzIBR5 Izz8ZE3ytl98cqt4hDyz PSErkpjyAtV2ZCaoBXSc axorIKe0DWggWALqmPdk MFxtYXJncjcyMFxtYXJn iIM4CZKagBDkY9XuVWEp AXpjDXGmefp9JvXbNl9q nSCcmLtuMUcdw7yqw6xr aLOePfm3NQAoQcJmFuzj VYgtw1Pch4gcGGDvhy8w LRQ0sUJxmUgxo4H9wNJd HXShgGLpleXaZGQxxu20 eHFvdVHwqWVxhq1gdnSm iOFrbDVpOXK3oZYunnBj SMZcdEGcNYHrPY2qsEMn SAQipK9gmrzoJQMaNaBz yketWCLkfAaqvxRuSf7u sZubBEI6OTmtD7rjjI7p AxI9TBfzZ1slvJ6hYHp7 BUhrqTW7ETSfvJ2jCY1f szigl6meCeLhJU1ulcnx n0irAnEdCY1kjan4r9vc EDC5WOfwJGIpKaX0dmD1 NDBcaGVhZGVyeTcyMFxm k402JXX8OfUcCEZiq2Mi B5WfdMhqB04edOtnY68q XMTegShmeP9fxDqhpD1e IlGjWxPtDKy7lh20EYl0 zjtbhZliPFe7bnEeTVCt PZB3DJCnsUXuNSQyK2b1 roBlNBFsVMW7LCLycZUy RFCdF6v9ngZyLUO0GOm8 cnBhZGRmdDNcdHJwYWRk YjBcdHJwYWRkZmIzXHRy fDLemZNdrUHirZ2ojQtv RBBczIKgyZ9nQCH9BCCo cmgzMjBcdHJoZHJcbHRy dl76IQCyxnOlwMGcxRge jTHmIDL6QPJoUJQdDNDr OXR8XCOuGjWgaeYmUEmf bGJyZHJiXGJyZHJzXGJy XDK2GXMmBhJzmlHpBPur bGJyZHJsXGJyZHJzXGJy PTQ3NUFnRzOvbjAgXCrh bGJyZHJyXGJyZHJzXGJy WVJ4SYXlHqMrwqXhFBir bHBhZHQxMFxjbHBhZGZ0 G8ehfIVjVTKcXRswsYVx JSWgR2mokQMyMMhuLSKe cGFkZmwzXGNscGFkYjBc H5enTMXnWoRhY3FwpXy2 MDAwXGNsdmVydGFsdFxj lXRkKTW3EXEsPMFqEUJu JIE1WXTrPhGahvEzFZdb bGJyZHJiXGJyZHJzXGJy MTD0QDZaZpWkuhZrZLuj bGJyZHJsXGJyZHJzXGJy QQP6EWRbJrQpsuNjXUkw bGJyZHJyXGJyZHJzXGJy TVN7VIJrUmEgsqHpESkq bHBhZHQxMFxjbHBhZGZ0 Q1hdvRUmOOAzMOoppPCh LZRqI8vykKArALgaPIVp cGFkZmwzXGNscGFkYjBc A4duDQWlNnEkZ6HfjGw2 NjAwXGNsdmVydGFsdFxj hXWuDMZ8AQAfMMZwXSLc OHX2JGQnWdKhttYhXLvm bGJyZHJiXGJyZHJzXGJy RII9FUDgHpTgpkZwZIab bGJyZHJsXGJyZHJzXGJy HMY9NQFhRrTylsOoLLha bGJyZHJyXGJyZHJzXGJy UYB1UKAdPdTlibRbMRps bHBhZHQxMFxjbHBhZGZ0 U5rowIKcUPZeBFflfMMv WHIcO3taeQPbZFwfTODv cGFkZmwzXGNscGFkYjBc N2rbBCJoUbYzW3BnsAj8 VkBkNYMdcrNgaA56Rplc s9EtZETgBQE5AUaoIUex bFxwbGFpblxmMVxmczIw PDxscycuUGUpSChuP3kv KuEvUMIhdBncCVmri8Yb XGYxXGNmMlxmczIwXGIg ROFqEVRebV4sBrccL5Vh rU4mNBeeZuljW5ftNVYk r8ZrsX8zELsycYHulesc MVxmczIwXGxhbmcxMDMz ZDdeO5ivDtIsDHUexPfk BLkhe2UqQIYlOQBaXbgw ftGeXSe7etVsGBNdfZgl qQDhDCxhgoYpiKhcw5Zz heParLogKIFiOHp0mgRq ydwtiDd1bNCiiDzgBXMk aOqayY0yKsLvLxQrUKdn bGFpblxmMVxmczIwXGxh knfeMVHdINydV2gcQkTp TZJrjPluLNlxy4UzFAMa LJSmPxrcidXmFVOyU10r bGVjdGVkXHBsYWluXGYx XGZzMjBcbGFuZzEwMzNc aGljaFxmMVxkYmNoXGYx JZagZ3asJiMkF0WePCSz XlSeoWNkN7cmP3WdtUvf YXJkXGludGJsXHNzcGFy JGD8mYLikfAudPAhiSOg UJIeMWgjLPP4rAYclncn tDMbyexhSQetvpZ3ZATv YWluXGYxXGZzMjBcbGFu ZzEwMzNcaGljaFxmMVxk InHkBNWjTQemD5snExWh J7PdIFGyRzVaVmZIODHw aXZlZFxwbGFpblxmMVxm czIwXGxhbmcxMDMzXGhp V9rkIkFqDKVmuVwmFOlu e3XqRNIsGEAzUxlrfjSm LHq6cbFlKOTsnCfwtN80 Qdryyb13SAEvp8lnIVQn E8UoyXQiEFItjTGbUGjv MDhcdHJwYWRkZmwzXHRy cGFkZHIxMDhcdHJwYWRk ZnIzXHRycGFkZHQwXHRy cRTwWBE9W4k6epEuFZMc PGg2vcCfJLSaWfUzpVBb MHO1HDo9LutrxpZ4lIHa S0x3LxtbvcMhVEprmEKd kw62WROctmLqeDFdiHhh mTRoVVV7ZPWjGNNnYVLc JPQ3PRWoPqBwlmBkHNse bGJyZHJiXGJyZHJzXGJy NNL6HBVnQsCqxtKjATkr bGJyZHJsXGJyZHJzXGJy WRG4SZTuPzKscoPtVDjk bGJyZHJyXGJyZHJzXGJy NEX2HDEgCuTkdxEeCPno bHBhZHQxMFxjbHBhZGZ0 H3wvcNUvIZWgGJulyCFu LFOpN8wilELiLZzfJTEa cGFkZmwzXGNscGFkYjBc H2mrUGDbLhThQ1SltLk0 MDAwXGNsdmVydGFsdFxj xMAtEMO9HAXfBQYnFBAv NQA1HVRkXoQqdrUmZSus bGJyZHJiXGJyZHJzXGJy VSN6LSPaMeRqxfWuDZeb bGJyZHJsXGJyZHJzXGJy ASM4NBVuGoYpcgJkJSih bGJyZHJyXGJyZHJzXGJy BHD9OTZmKbPsnmOdJJih bHBhZHQxMFxjbHBhZGZ0 W0zbsEWhBFYsXHgliGCe TFAaT3ayyGDbTKhyUXLf cGFkZmwzXGNscGFkYjBc W9nwKBKmFvZvH0RahTl8 NjAwXGNsdmVydGFsdFxj nPQyBAH8PSSyDOSrJXEg LDN5JFRrVpEjzoFrQRsx bGJyZHJiXGJyZHJzXGJy YZW4KSYuLuFtagVmLCsn bGJyZHJsXGJyZHJzXGJy XZS7TVTzNoAizyHgEUqi bGJyZHJyXGJyZHJzXGJy LYD2JJPwTqPtukOnKLon bHBhZHQxMFxjbHBhZGZ0 A8izoFWvPZUaFMzrdWYn AEOrY3ttxIGjDYjqAUQn cGFkZmwzXGNscGFkYjBc N4geRFAjZxJvH5MrvDf4 QyFrBIVxtuEqbI47Rfyv c7IzTJZrVPN9MUnlBOrl bFxwbGFpblxmMFxmczI0 XHBsYWluXGYxXGZzMjBc bGFuZzEwMzNcaGljaFxm XUawXoThVOFtCVpoX2ne HqXlS3KtTRGvCmKlBM8x SeH4RYUdQMyuDZA1TBNW AJTgMUXGJ1BDTujdEBCJ S1TnnLrqtI6dXjXpVtQl FFbkLA2cLYEoQ5meiGJb FPWcDVEbA6xaCgRozD6s aFxmMVxjZjJcZnMyMFxs dHJjaFxjZWxsXHBhcmRc hA28Zvfou5NdIOLhCMI3 MFxzMFxxbFxwbGFpblxm EJkkjlG0GTQmZPxhWSYy XGZzMjBcbGFuZzEwMzNc aGljaFxmMVxkYmNoXGYx HArmQ0qaVlUxS6NeAMYv MjAgMTIvMTYvMjAyMlxw bGFpblxmMVxmczIwXGxh qvbsOJXnPAkfO3bqKmUw YXRywNtjLRekm7KzDFTv FIBuPpjsgkTpDQk8zlSo XGNlbGxccGFyZFxpbnRi vOcyl9YcrhVdqGchKNOf XHFsXHBsYWluXGYwXGZz WcVakEadmK5bMjEnMoTw PTeqNA9gRUKzS4vzpSUg ZKZnWUNtD2kjYkGhsW6u aFxmMVxjZjJcZnMyMCAx RhC3OtEbEfGquCxmlQ5a HyWvMiDdYJniIE4cERBj K7xxwTLmCQJlSZPuH3nj IqOliZ5kqSyxYZavJzMn ZnMyMFxsdHJjaFxjZWxs AOxhfREkWRUbm8mtZGAx RRKacMUoJLX7pKQqqhLc tBwmhAywuC8jKzHdJnPz NFxwbGFpblxmMVxmczIw JQmnaqpgKYBtYDheQ1mb XtOsPRKgaNliIJwco2Pw XGYxXGZzMjBccGFyfQ== Addendum 1 (test code = j8sivDNvSVHynKBwKKKe 37) GhbagcQuAKRgjOYdL9Kw fnafQGpwXC5cWL6xpJbx oEDfzZNdETXjBqGvu1md w474dEVys6xyEVLSVAej LGFCEUx9r8svAKIIihfx aFx9vPbsS84iq6Z0Famy S77toYLiYTZ5SCOeWOSu fFJiHFWiTJB1PFMjuJGx Z5ttAUCmVI1wmhuvZMpx LWteHUScnNX9JHWkjSHk H6PvBOOvJLekBLZdstl8 SqNxHq1saHDlbUztZRny YXJkXHBsYWluXGYxXGZz MjAgQXQgdGhlIHJlcXVl a0Deq6RezOegJFShRCK1 gN1xLOKszRJfH0zacsL1 vYSlOb3wrN78hX4pVYU2 uJOiMYLgj4UiUKLyFWWd x2ExCDXqGZ7bGAhlpRTr vLSuoZJaBIN5HH8CEXUw HCKei59yYgJbbTErCRSv zyDksLCqVVBoSFD8fK6s ciBjZWxscyBhcmUgbmVn AKKelcPgFr8bBMjhhvPu MDNwMJNgfYFugF82ri6y rNC0v8NqDT2iB2KsDUHj GXj9v5hyLrJkzOJrZAZn clHpjMVvHNTiJTC4uI9p jxTcDYfxdsOakdQaoI2e aXRpdmUgIGZvciBjbGVh ckAqAR7TCYRYTBEpKWS4 BSJfJUKzmXHzjF65dw5w eVW8l1AoTU9oF7OwIHQj KGf8a2tkCvGukTTyIZHr ihFPSL6UYPKsD9lbvwBb MjJDMywgRGFrbyBQaGFy gVL0LTQYj55afO0nSYZF c4RigPo9XSTHB28pCUWo C6WFRLxjsQTnnRQkhvY5 aGFuIDFccGFyXHBhclxp WYGqSQWso8B1QOkyFd1y bES1wG5nMPIlZQR6UNCr aXMgYXNzYXkgaXMgbWFu iSAzA2H7rhErFQV9WBTo aWxlbnQgRGFrbyBhbmQg qPCpkrOxBX7zvp1hdF0a LWldFW10mO8CKK8MAIry O3summNqMpXPUs6ySMDm qDJkbXSwPq5tzATtRD4o FUOzyw3zbRruHDPbeFUi IHBhcmFmZmluLWVtYmVk RZQcISGmw7H6CBD8l2vi DwAwbkJJZ1dpDO49UAYz z73hTEB3z7V5IOgrRETh JK1gXONaxPxhKHLeBfBi FIHxRXX2QVO0rA0jSDlj lTnoDNPae0MkX8jbiPUw IWK5MOUbQELlAB95AhZi zMLaNHJuLKk8YXvpZCYp yIUuieSnWMBsnpD4u7Xx ZLXyXADmr06vKP4pm47q LXpiG49bv9FiWtWav5Rp j4OzK1vyiEAbpIltpfDx zBCoIV5nZRGjyqYmfR4d mTWtc4KenXveABXtR33s QhnbHLOlxX6ejOKimpBh z9AtbjOxTNLYIxixxJNt M5ZyG3CzQZYzQLQaosF8 cZWnlqQlMiWoBF0nAVDX UZakTNZ7TBzggH5lREMn nTwzGUk5aNUxcASyhA56 PFZtaoMoxDHqi8NyY4Vg qQEzb7fqs1scLbWcEV4g glCdm5RsBJX4WGuveK4u KU3qLCUdjFBozuVtmeUp xFb2NCx6hVNeo3M3vCHh VHQyEZBmZYIoq0JjCOyu srYxavB0yZRnsCDiw7Hp YFMdEUQtsX23dW0eSU2n pJOoUV1ajUNri7BwB2f0 v0KjTRLctAJgz6IfzS8g hgqim7QqMA92IDgkoKCo w6z4sOftZSu1sKCtKWZn aJM1fCFrvW00ZBnaoiKw FaMvLF7tJCFwPFMuJEPr kjEue6m4THI6fE5txxPx ZWxscywgbXVsdGlwbGll ZCBieSAxMDAuIFRoZSBt UGqbvWIyTOMuj7RzEVcm LPXkBqkuGWUkTRJcB6QX XQDtQI5thUDjVNrcJVBs clxwYXJkXHBhcn0= Diagnosis (test code = v8msuXJnYNKnpOXjTMDm 34) XvkijiGjDBZnfVRvZ4Jg mmnwODdnAD9iBR5jcFts fANpkNRcITEkZaZsf4mw d912hUZlm2omXIBKiibb tDe1eAgmD58ha3J6Kyxl O6gvYRCpMQayUYIbNQih yZFsLVa2BALzbGNjyaZn UfFqKFNpdAMseDQ7DDRx UA3xrjajKRocAQigKPVe tpO9HPYclUXuE9FqFIHa XQ7fyvplHQT9VQcvIEAv YCN9YoZrPCUyv0Ozruv8 MjBccGFyZFxwbGFpblxm czIwXGNmMSBPdXRzaWRl HDjwUmpCFuA9TdZaGXbi R6OsDWZcFbpAB8iLNNEs FDPJEpteR43hxPPipTHq ZN6uUJOwLsR2YhPtQqRx KcdhHRKiW2TsEDZpmuxu rJmzZSpzqT13IuWsBvXs r8IlBZX3ocmtUSUni1Yj cNhltCVeHVuhJkP4TTvh oG27IcCqwNxlGsA3AWXW NCIOV0aFMFBCD8RXZzDC EVRGAX3BJMLkMWHKWUDT UEAHZg6fNQqLTABwMCEo L47khIJbmQbhTRQtpLPr XGxpMFxmaTBcbGluMCBN RFcvRkxaIFxwYXJ9 Comment (test code = p3sjcSAmYRBawBUoUCZx 9835) YkcrroLnZWKikCBjH3Fh ryxlJBbrHP2zWX2sqFbp dOEauRJlFECbVvFjf4wm a355sRAio6xqNXVBihzv xJd5wGvmY63ps0Y0Hljc I53bzBBjDMI2KSWwEKEu mMJrGBEoBRT3XFIjpONt J4kxEAZpZR4qxfevSIoo XQbkZBGeaND1MOVieQXo Q6UdEZVvUCkdTYIdsxb2 QwNsXf3uzBEsoWewKRyx YXJkXHBsYWluXGZzMjAg L7KrzHw4vSUjFFegpIAd g2pjf6IuA9qodJmbVUlx e4TfqP5kCVViviPwjy6l ZCBieSByZWZlcnJpbmcg rD1rjOo9pDFvv74tk5cm joW7dBH4HFIGUjFgbBdp bGlnaHRzIHRoZSBlcGl0 aGVsaWFsIGNlbGxzLCBh bmQgcDYzIGFuZCBwNDAg eRadwRvjM0w2poS4lIKa bXlvZXBpdGhlbGlhbCBj NAbizy1kNMZtHSQgj5Fr yA0ej2h8UGTyDVTdgP20 wn9vdDCrm9V6wEXzyVBd g3HssD1lpKp3EXQcCoY7 zVuaZRKiHEUpcXAsS0L4 eE1iFuIclXYjgB== Biomarker Block(s) (test q2zhjDIrMLLtcEFmLKTr code = 9841) OquzzxSuAMWbkLIqV8Qh rdwsLCazPU4mEV5baApy uCMrfCFjLBTpMoJjq7gb y832gBXbg7xjBPSWagpc jIv2dFctS63up9U3Hhwf R4ckFIOeFAskNJTkRDtu bRCzGYr2IFEqtFRgdvBc IiGuRVWdnRYrgYR8JSUy KL1qeamaLDjeQOufUXNj awX1PVKpiEThD0XzCPWq KA8xwzfaXJL2GRcqERCs TWC9HiPsDIZri4Thbzx8 MjBccGFyZFxwbGFpblxm fiVsFYT4uI7pKEJfb1Fs OiAgXGNmMSAyMjpJUzE4 NzBccGFyfQ== Disclaimer (test code = q3zanOHiCAVbaRTlVuCv [id number]) XMRdRADyo1rwRSFnbNBs ZzEwMzNcZnRuYmpcdWMx VBKsSeZjl3vlz413yKXd s9uvSSTsLaS2tWIbRUUb dQTfA412GVFtFQzyo7qm o6GnHFCovDGar1Q2FKPD xhrmfMh8pUriZ53yo9X5 EdwqL4lwYGVrRLRsL4Oj TI0sPYHuElz2WAI9OKQ4 CCYjFKPiL7OnGL7jPXVt tEVeGNw6p7rdwJipVETj OXL7a6yzRXavxmWmZN2e xf5zaHn5y9ipxwLsLVZk JCZjgDEFONXbF1QquCgz Ko4moHv9lPrsAqfmDDK1 Pwe9TQ4bla07tva2vIvj NBRurtqrPzN5LAukQOIo cbtjFRc8QQbyKODgpNS1 PABvkPTbH0LbESAaXH2q jxd3ATK8AJzwTCTqKaB3 NDBcaGVhZGVyeTcyMFxm w980LJM8MrOzAV6tU4Jb m2O3mC7zcSMtUAJebLWj VtJvBCYxld1zeIXbWLby p4MrYMT5beZ9wLRvjTKp OBZiME09Trkid4DhVipe LBE4DOIwblJuq5Bev1vi CoYiqgGgI1rpF7ByBNXx PLOxLOBlJpAoscRpv5Tn s8OlcGMblGn3a2xqORJr UPBhtHbmh6mrWBL1WHRw F9E6aINap5xeHTktTVSn cCF4kgG0TYOyiRLrB8Fv tF1sYJSfQW5jseo9u2cb EIT8DRujCXXtCcA4qkE6 NDBcaGVhZGVyeTcyMFxm n747VCE9ArPsTLLvj1Ls J8PzeTrbV48yqTtlQ81w RWUyjAermW5riIqdgP6z ZjBcZnMyNFxxbFxwbGFp hczfMQyztiC4SYddulpb VKVoHKpoT5tmPpEjYXPe nQrhQRyeg7YcVPPaNAJy TqyxqiA2IWBNx58vGRUi l1HfKOMutZ7jbHRrHXui mbRjtJU8WWgcleXvIzPr daAlBUMmlY0hZVSbOR6y RMEyrzYffm9qegRkLJKl GKZaK2OgwqkizEwczeMo GFLqgt1mkfMyCIN8MDRZ UC0XOHTlFWYvp79wXNAp uPkutI7lmBGrkaUkRVZj i6KeuR7flWTIYUOoM7xb VZ3mJRcmi9NicRBvwALu qUU7RDJuj3IsFsNrvyXy sXCqcHQpX7HakTwcB0kk FLJuQTMwmdLsbLHdu6Ks VFEmlEB1oTQbOW5QQeXN s76lPGIjUXHNtnSwSQOs qPsjpTP7evS8iL6dRtPL ZiBhcHBsaWNhYmxlLCBj i799qj8jnrZ0EUWoHKGq wfpaq7ZmXFMbUPQhaQ76 QSWoKXBrcy7khtifrGKk ngHiU5Mmolk4pR8nKJIk YWluXGYxXGZzMjJcbGFu ZzEwMzNcaGljaFxmMVxk JjZaVHGiVLneW7miIcGw ZnMyMlxwYXJ9 [facility] [id number] 16:06:41 Test Item Value Reference Range Interpretation Comments POCT Molecular FluA (test code = Negative Negative 27617-9) POCT Molecular FluB (test code = Negative Negative 28209-7) Lab Interpretation (test code = Normal 29575-1) [facility] MOLECULAR [id number] 16:06:41 Test Item Value Reference Range Interpretation Comments POCT Molecular FluA (test code = Negative Negative 77739-2) POCT Molecular FluB (test code = Negative Negative 02521-0) Lab Interpretation (test code = Normal 81872-8) [facility], [facility], WITH [id number] 16:19:00Reason for Exam:->Morbid (severe) obesity due to excess calories [facility]COSTA : 1965 Sex: FFINAL REPORT FL, UGI, WITH KUB CLINICAL HISTORY: Morbid (severe) obesity due toexcess calories COMPARISON: None. TECHNIQUE: A wax pattern repairer abdominal radiograph is acquired. The esophagus, stomach, and proximal small bowel are evaluated with single contrast technique after oral ingestionof thick and thin barium using real-time fluoroscopy and acquisition of multiple spot digital radiographs. Patient could not tolerate gas granules, could not perform double contrast technique. Fluoro Time: 1.4 minutesReference air kerma: 125 mGy FINDINGS: Railcar Brake Operator radiograph findings: Normal bowel gas pattern. [...] unremarkable single contrast upper GI. Signed: [facility] Verified Date/Time: 07/28/2022 16:19:45 Tissue [id number] 18:24:44 Test Item Value Reference Range Interpretation Comments Case Report (test code Surgical Pathology = 104) Report Case: [id number] Authorizing Provider: Dewayne Wise MD Collected: 01/09/2022 11:31 AM Ordering Location: [facility] Endoscopy Received: 01/09/2022 03:51 PM Services Pathologist: Evelin Wharton MD Specimens: A) - Polyp, Colon - Right/Ascending, ascending colon polyp B) - Polyp, Colon - Sigmoid, sigmoid polyp C) - Biopsy, Gastric, random gastric bx DIAGNOSIS (test code = [id number] 3220) FuZzEwMzNcZnRuYmpcdWMx IHtccnRmMVxlcGljOTYwMV rhafIlVPIumPLtZ1Dnjijv KQogZG7kWW3zmVaorUUenU JeBXYeKdUrs2lhp157dDHi q9frRIMGwufqtQz6dDabK0 5zd1C2FfjxZ60goXEyUIZ9 NVJuHYOlxMKtFPBzOTR7JU LcwKDeX3ymRHNnTK9qhrkv GArqWCosEGFmwYX2DCGxwI OjX7RpNQXeODqvUFSvcbr5 DcBgMa4cuAOqyUfuVPffOD PeGBAvLKdgLIOqGlNmQF8n S67MT77ySHOKK4jUE5NNJ1 CJBVwCLkulKQ9KWTULJ7II EQp7EGBmdkw1ZVNsBUSUYR UNQPCAWOETUH4PDDWzvIGg UJOlrfTYEiGHP9cGOhpuV1 oBNL9IGSebKC2NYCIPJ3CN XOm4ZNMadce6WUAdOBREUK ONJQRWJXGISA6WXJNbCRHq vixfMTNnKh9wS5FWZAPNZR diT1fZIBTMZ4PjT8JKR1mM LZKTIGIKMQ0ZY2qcpOGjPH RhYiAtIFJFQUNUSVZFIEdB O7CKI8TNSTcTMJOthcf1YS TnJVIBWCzRQYsHUW1UB26A UAGUKFSIQW2EQSNNETjMYF 9HSUMgQUxURVJBVElPTlxw HVHimMZvUB0gTwKXAXKLDy SvCa8ZEVhLWVbQC8NYM7DL DmUUMTYZZ88WI8LSZKIOLn NEBdSQM2ISSV2WPSNTKLeB D8ygQWU1m6apwUYcHMSvjS UxODAwMFxhbnNpXGRlZmxh grbgMEWfVDQ7fzEsHUWiBF obNBPlOYpcNj9ecZQhsAbj CcJjRRIgr1yjydOXgohemK b2x9saTQMuUcG3kROfICjq R9jjdlCidEUvRXJbQHw1bW 88RFQeqS2sbDWdTKlmluMt PcT0RWjuXKWfYuG4HZSddG GpMCGqC5ibCIQsQFdgMDRy CDfhuQRvPIF7cVbuy6K1rD VzaGVldHtcZjBcZnMyMiBO u5HkAWc3hKvbR4FpGRAvCx X5wHChJUOpPSivDNIpRGHf vnK1rO40MQkkprR6eJZca9 Jmn61ps999iU1lrYTnDRA9 FSZaJECagHSvDABgRAX9GV HzoQQgW8uwCDNkSI7yfcmp BXouXMjlFROefYM1GKSfvR FiB2ZuGQYsYNdeLXXyspy8 AhUvFi8hkGGhbDldFFzoi9 olt5gvxJNoJxj7YMAiFrSg UiwrGJmym6Kyg5twROSezz 6mKXH5kJUqhXype9L3gZFg EUHqdGAlLDOzEQ5hmJYzPU CzlH4fmmaeOCEeFjJzetch HRXnnGdwluZoCe2gcHuxQM D0LHvlU6gnoP3iHrI7URjq L2ixrE0tWOj5EMgzMPNxmW X1zeR6QNXofZNdU6UvfN0w QZDkUE0ranh6c2lnFNX6TK sfVJJjBiY9yrJ9IIBorQUn CTFutMqsUHpcr648JTN3Hz KeQBQpq5CrB3PytUwnZ25r iTzsN58oPESexOxbdB7nhB ogcM7hLmRjNaNnMSqcpKcb AT4bZNRmD0izbCWvKIUeHF MnN3gyIwWxgN6spOvzUCqm wkTdBONkWws2NSOylGThUC CfFrw4FXRjMIXdS84bscle KKD0kU2zg1zgo1MqXYgnCE W4HDJog25oFQiukaE5YRbh Kg16AJnpLAH9ESajPGL4uC == CPT Code(s) (test code a1oeiQMyRJIbgSC2JxZaJM = 3357) Cnx3ann4KnkHHvfVKnDJkz rHHtzkOysr45eYT1aW92ZP 2iHFShKdZ8GXMuwtC1Zui9 DRHeBWFilHJgQ503r8jxt6 hmvmMmsEW9hNtxTWFfhzuo VwX2JYmoCCLooyvsZTj0HB wpKTXvmGF6SEIfsVDfR2So BPGaZA8qbxm4SQV8WJdpCG HnXzZ0TCVymEPvXJSaaYdb HZqfu521SBX6VbIaSUBqau VmhPixzC7bAoZbPLO3DZDa NVgzXHBhcn0= CLINICAL HISTORY (test h9hzqCXtJXDahKZ4OcTyFI code = 3356) Lpw5hnq8NiaOIsyGElNJbo hZGhhkAtep94hUK8eW01WU 7xOKHzFzB2WTHolbW6Jsr4 FEBqGNIknUArJ967r1xcw1 kjyzGhqFM0oUhrJCRuwdwa NbE0AYzpVAUbrlwhSLv4HL ziOXOenLO0ERAslFLaN0Jx MECfTY4bbyt1EMJ3WIouVZ SmOgV5OMZquLWnGHOtmPhv WHixw258NKT1VxGxSWTyht EpbHwlvV7tYmAtSVOWUTJ6 aq4qy25daDRzVZDcMEFhAd n9mAJnqUZwKVSpKDMup2g5 iMGaHjEyu3hdqegvNWN5 SPECIMEN SOURCE (test t2gfbWJgMBBgcAK9UsEsVW code = 3377) Dve2ggp1QstXVtmSLxJUqc pVKvvaVaac32jTX2fY30BY 7wLIVqJvY9XKTgahY8Ydz7 CAXiEOEauVKyX603o4chp2 fcriSzeMX7dPukFUYjcfdy QmF5BCggYGFdclbkRFr6HP igTKKuzAU6FWWybYVyZ9Ny IOAgCH0uzzr4WMJ3YKpaXH DxUcC0TUKnuHHgIOElpMax JAjfq787SKX4CnQbDNNxat YsgRpnxF5hQvPiFRALOaGp JH0ycELvNZOoaE8mETDrS3 p0C1HgF4ZrXDsbC7koaL4s SRStNDWMx7t3aZknG95lk4 4xg6rftV0mZJvnsJ6aBMQg XJVBtD3fe5woGZvqg4LinN MsIHJhbmRvbVxwYXJ9 GROSS DESCRIPTION (test z1lruHTwBXPdzAHuUjRxLN code = 3366) ZoMZAkv2xtVIVlrYPhCqJn MzNcZnRuYmpcdWMxXGRlZm Huw1kmr336dARod2ojRVSX tjupbFw0x3fmJIHxBvF3aC BdZWflP9jhdvCbuUFzJIHc UHf2kW82RGLtrN4uwBQkMB aezxDxQjJ7WPrvDWCrDnP3 PNWnzLJoYYYbR1naBDKsUC opKHQeWNvybAQiFRW6uWej s8O8eYYmxTYktVaxKhTgDk HfUMHXf8JtEDj3qStyK2Zh QGFlPiV1dPBxJOBrDChmNM UkJCForsX8wH11EVlthhD8 eLBgy5Hir90qc431lP8aeA BlJBO1GNFlNEUpbCIwLSDv MRM9UMQfxIMkV3y8VeYqiV PmE5X1FwGurALbC6H2GoQs eFSzL3C0JnIuoGLwXJJouX IiGd4umMEoqFKxdn0let23 XCI2g5VqzIeuZOL6HUX9Zq LoOl7ivKQaHRIqFGTpxDEh PRHmMD2iuVVyHLEmpD7atp xjXHBnYnJkcmhlYWRccGdi etSoXn3yjRnoWPH6JKpeP5 qglG4tEaT8GHpdW6dinU6r KZm0LEmwwQT7EVCarF2hWB 3lvdrhg5oyOoMzQK6lvxqq r2twYbDzWG6goac8c0aoBd DgWJ5sdfutl6egVvBfUWjo PQWytqkwDPFle1IbbezaIM Kmu6WwF8SohYtnL75uhLnt M63lLCMcfKrmtS1xwEfikU 5cZjBcZnMyNFxwYXJkXHBs YWluXGYxXGZzMjBcbGFuZz EwMzNcaGljaFxmMVxkYmNo GVDgEVzoZ9crWsGaMwKbJB BBLiBSZWNlaXZlZCBpbiBm c6ZeBDuqdvRsVEPthLKkHV dpdGggdGhlIHBhdGllbnRc F9G4jaUnSG8nFCYuAGFtX9 EpGLAnJ53zBJOkvB6qBFSf BC6nPELav8WaupYpowtnT6 2dt36whK1ylJEdNGUhARUb z89xiHE4nxIbHsZgCRDcBT RzNE6cXLKnvnFrp3Y5RREp u8D6ACJdYQMubFAtpbpoIT 60XAugTW49ZIncWS1iRWPo GxGCrNSlw7LkN0ebTZ3auB Dcg5EuiPz4rXJcMQrqAJCn mE6fqA1mKETnSLuuegKugH luZSBCLiBSZWNlaXZlZCBp ffKyy9EwNZlxrgPwHJDcuH VkIHdpdGggdGhlIHBhdGll uyNaQ6Q7ivVjVU0uMRDxQO SwG9SkLUQbG62cOUZmhH2p OOZuWZ2xCCImaIdzs5rxAG AasX6sVHWmnQnaBwNdskOj A42do7remFBzx0EbTaUdnF JaMHTtw8ZtjDLpADNfplsj c46bsQV2pTFuwSMhfpVvY3 orJvVfswTeeQpyVICql59n HA07KTilGY3xKRasHB6aBY IsBGZhPKLiLZE9NDLzRuX0 IDAuMiBjbSBhbmQgbWVhc3 ByyW1jJHPiFjZ8QSFkShV4 JCJnSnEvyVCesuSuC1zdTJ eblJLrUHPaCWNkqYLnuM6b vaSfhnIfaCXxsHO8EGCbzG 4mjM42kpYgvcDZAL3tmRpl PEcgoH5oTTCcECEqQ1Bqef ThROfeOOWaqd5okCrkZThj CoUkTCNvq2l9iTB7rTPuvH X2kVPcvCyfJlWsPZ3fgXDa VE4sBVzeMJumkcFts6JaDD 89jXPtvaNtrdUqFsbzk1Vn mLOfFcmrQWZaUEFxf80jsY L3nkYsPkO2CDAaBAAznmCf DyJ4GJ9uxFnzjsIfp3U1VR Gtq1F5YYGkUG2txK4kHWgc IHNpemUgZnJvbSAwLjMgeC JtBlTynELbDbPwX87qqR4z CH37ZEceWB8sZYwoUY9hJX NtIGFuZCBtZWFzdXJpbmcg KY4eERfuDJ38PRtaRK3bCA HsQWhzNUExW8VaL1A9CA7g VGhlIHNwZWNpbWVuIGlzIH B6Rf6prFBxCMMaamP7w3Md ZHqkFGRsErupcB2cNCbeza EqT5yBDEEzwk6= MICROSCOPIC DESCRIPTION q8iinLVqSURsaDV8EwJeEL (test code = 3371) Zbl7kpn1HamSPmdTVzBSjh uIPlltRmtg52kQM0nS60IY 1kNVHaXwT8WSDanmO4Hrp5 AYAaHNToeECvA553r7mwk5 rygnVwvBT7uJywGGYeqjfk UfP8YNvfVFPygiqeMTr9AS nhLWTueGL3TOFczFSxI7Ht ZJJdCF9jboy7GHL6JFqaLY TvSpA9ZNGzaSCxBXEroLnn PObny540UNO4MxTgQJZblv FvtMqwiR9nUoMxWYIAGUFv KU0cOKfjG1wjI4VhDFWiRR jjrRbde6piPY2eNL2cxXdn peLdE7ochBFzzORfqkXgOe xqSM3uYZKoygnxUUSaZn8m Xk0fn5mypwwodXZqvlFugM 0rpJXbkNE1bC6nGZBjpxTa l0EnuxOpPY1sbOXefHYyoT GaGKT4y6QuPNBfRAGjjzAi ZTldW22sxpR1NFfoQMMdPQ 1sQE3pOWmzmAnpw2QuS2Hb zpWybEXjy39pG1PzdKQbot MtqvRfe2PnrdVgrtNsl3L2 yX8dZSQ8JYakuk0pSMptJE J9 [id number] 18:24:44 Test Item Value Reference Range Interpretation Comments Case Report (test code Surgical Pathology = 104) Report Case: [id number] Authorizing Provider: Dewayne Wise MD Collected: 01/09/2022 11:31 AM Ordering Location: [facility] Endoscopy Received: 01/09/2022 03:51 PM Services Pathologist: Evelin Wharton MD Specimens: A) - Polyp, Colon - Right/Ascending, ascending colon polyp B) - Polyp, Colon - Sigmoid, sigmoid polyp C) - Biopsy, Gastric, random gastric bx DIAGNOSIS (test code = e5ueeRNlXIEwl7kqYHKstC 3220) FuZzEwMzNcZnRuYmpcdWMx IHtccnRmMVxlcGljOTYwMV glkdLvQXMshQKsW4Xvnfvv OQkxMA8cNU7ltHhutHKmaC SyLJUqXuMgz3pas536qKPa y3kiCGCSoknffUf9iCwgA0 5le9R7PiozZ91ndHVhQEW4 ADZcSGBghGDrPODjVIH1PQ OfpPPwT4vfROZzZH3plrqf NTbrQNwhTEKveHP4FAIpwC AoH0FsPDXkIUutUSIerhw5 TnXiNm9brXDdoOhlHWwzZN AkERSqGClwPKThLwHuHW9m J00ES51bEUVGY7gSJ0FXI0 TJFUqBTdkvXF0HGMRYS7AP LSu4ZAPjoeb4PYSqGSIZVL OVKVGWLFBYSK5YEXDazUBs UIXqyqZVYbBYN5bKZrveS4 cTMH0ODTdlUK8KZAUAX5WZ KWy8KOHfsky8SNClZXPGFE BWPVXFFQAYFT1NWAShZPEl wdalUGJaMn1yI2NKXFUOHF awE2yWUAATM1UpZ0UUE7eZ NUNIKLHIPW6BU4lbcPVjOY RhYiAtIFJFQUNUSVZFIEdB O8DWU0POQDpYGKNtpaz2ME PyTQHDTCqVOEnOZF3TK31G KSCEPCNKUY1PIDQPMYeHQJ 9HSUMgQUxURVJBVElPTlxw LHOhfCUnKN8wWmVEUWORTq FlOs7JQUiPTHnTY1RRT5MG SpLAJGBNR25NA8MMQPPLCs BVAcXCB8FGGQ6YDDJFBQkP I4foLQY0k7ulwDHqGZWwnC UxODAwMFxhbnNpXGRlZmxh fnzgSDRsRGL9qxRnDJAuOA rcTBYyQIlyMv1xuAMflWjy MwHdPUQma3spcwNMuhbbcL o0t9viTCBdSxV0uEXyWNmk W3kbnnVyzBLdHRTeZNv7mI 66YGMfwG9hwZGgLJswvkJe NgD5EBwoAJPoEvE9AJPsfC RwAPYqI1hfHRStMPsmWFWw GHepwCOsYNO0pRnar7Z5kE VzaGVldHtcZjBcZnMyMiBO e3MyJFn2sYeyR0KdZKOyTk Z9jGPxWIEpVBudJMPoLJRn zzT3jB85BPbqzbW5fVCde0 Ivl50in855gW2xbZUlCBB0 GNZdYRTjoFJpNKEgYAS3DX FwgPEgA4wfPBNrXQ4srdko DAyyFJxqKNMujVX1WPBdfU NyT7JfAEPrJAjfPSDxfdr2 WaKoWk1hcGCbyGmvYMxzy5 dly7ukeTNwXao1VZWvHcVd DsbnFZmjq1Fsk9nuYWUmjp 5dHSM8vCIylHmaj9L1bHLb QPXomLPsSBEwBJ9meACvET JsxQ8otxsoCLLrAfDiihwd OWQtfRwkpwLrMp3qfKmzXU C8PBldU3ztpQ6pAcC9WFom U9umgL2bTEv1IZdjEXIovH I9idH3AMJtvKAbZ2PskW7h GVVxYP4ehft5p3uqWMU6WF lvLEEeRsG9lyX3RBVnbMPq TFJdrNkkVKbjk653QFW3Ju FzTNGpq2OuL8GstCvnM15f jFhvS71lBSJhbVctcB5yfK zkhE7jUmBhVyXqXKgbwMky JQ5cDHPlC7aocMClHKLnWM NfX8bzDzKtdA2xtPqlLJhe wiAuJQIjNcl5DQLbhWSgHM XdLto1HJAeHUMyA20mmsyg DAX5fR0hy1lwm3XtPOajSG M6HJJqk58rFOzjcwU7VCik Nw32PJzjIZY1DGonCFA0tZ == CPT Code(s) (test code c0xzlYFuNBDsiNH7QyPmXD = 3357) Ppr8sdf6HshYHrvIXtKCfq pSQbxgJqjg16aAR8zX13KS 2cERPfSgX0EVWdrrO6Uan6 MBIeBCUlwLXyZ895d6hnk5 mhbaSzzCT9zFxlNDJmcloa DhT6CHjjGDHzekqsXRf1AP djQAXwnMU8GLQvgNZbE1Ui JLMiSJ0rwuw6IBS8YZrkCD OrUrJ6ZRJvfLIiAFOvtGyl MUwjp102AAJ2GqXrBSHmfq FvgNxelP2kOxXeLZT3PPSm NVgzXHBhcn0= CLINICAL HISTORY (test p2ehsZTxBBUlpST6EcWdXT code = 3356) Vvn9ndx0JbiXGhzFWhVRxg nGFvmqVbgm18pIP8hX09HT 1sGHDjCaZ7NEKuceC7Lhr9 NJQlGCHzuGWqQ090d1hhs5 bdapTbrEJ4aFuyJNGfifur GsM7JFjjWYAbdirtZKi9AB nmVCIwdNK1XQIfoBTgY2Tf TNYbUH6icmc5PSD6ZEfoUD XaNwY8XZEkcDDaMOBziXfg OXghd887BVK4LmIyXGDxmp MsfYerrI1oJzAdBILFGAL7 ie4ko19poQEzKSGjYALuMh t7rVDkoKAjAXByIOTed3j6 lATnEzNqi5xwanhoZZI0 SPECIMEN SOURCE (test w8harKGmDEIcqNZ5KnSpLQ code = 3377) Nrp3kzf2FvvJOouIBqVChe qWNmhwBwne81uZJ3qB10EE 3pXXLkDuN6LUApigT5Cbd1 LDAuVXQlqYXyN033a0kkx5 schnMjvEI6yLjyAOIrfhyg ZrR1CPldHPAylrdyMIo1VO bqNXVzfQJ7GKEbcLExJ2Ct ELVdKE0mmii0YHL1XMtuUB KrTyL7YYUgcCFkGNEuaOic WClbx984NBF2TvQwNDUtga NylKnwxU4xDvMtHDIWYtDi WH9pzEWeSLRjzN7mPLVoF2 e8J5MiE4ScTCgnF4zhsZ6z UPXlPMEMt5c7vAbvZ02rr9 9ov5eodZ5qXYpnhT1jYASr XCWSrX1yx4ynZBouz1AluZ MsIHJhbmRvbVxwYXJ9 GROSS DESCRIPTION (test k1wxeRBsHHRaqKJeUwQpAD code = 3366) GrAZSwh4atPACfqODwHbCc MzNcZnRuYmpcdWMxXGRlZm Yiu6gul645wPRwt8uuORXL cqegrDj2w7qhPYDyDoH7bR LcNZttI3hahvSsyUDqAZUg LOk9vV29GQJhrW3hjZXtOS ugacXgJpP5FYouUNRqXpZ1 CIPhhMZxZKEwY3bfEIXlZT lvZAUbRHmrrJBcYCY0kVgv r8W8rHVawBOqaXztGmVeLt BkRQGTa4DcOFf3yWvgM9Ps BJTlOoQ5lSRyCNPhIUsuVT PuGYXgdaT8hF81TZuyaiF5 ySIwk5Lbd18we497jR9kmU EgHLC7BGGoTRGmnBJqLHRs ORT4ASOyrMYiJ5k3TwWptM FwS9Q7UjAcsCBhE0M2JaWn dLIpT9U6DvZwaZEcDMVyvH QbFn2tlBXsaGRxjb1sqx45 GHV0d6DdkGvlCYN1KOU0Hn NmEt7lkQGqTERgFOGolVPy JONfTA5wqZGxAPIjrM8lrc xjXHBnYnJkcmhlYWRccGdi fyTiIh4etAwmFRN6YQqgY2 ffwQ8zWbB1FAgtK2owvN7q TVf7GYmnvGL4ZUVzbK4gMP 5xyvudl7ofInQtNP2wtcae b8gfAyEjPG6mraf3b6srCu HfAK1auiswo1efNnVcXLjw RBAlvvykNQIne1XtuchgTE Gow4JzY2UyhXluE82ltDuq P04yDAFwwOomeL8yuIjsdW 5cZjBcZnMyNFxwYXJkXHBs YWluXGYxXGZzMjBcbGFuZz EwMzNcaGljaFxmMVxkYmNo MVAaDFqyD9swVyGiOcHyZO BBLiBSZWNlaXZlZCBpbiBm k8JgYIebthOmPDOylJEzKR dpdGggdGhlIHBhdGllbnRc D8W2zkDbHG9qHFZoCNJxH2 LjSGAaG74yKSTolH4gJTQx NP6cBARrq4CpwpInbovjL7 5qg48xpA6lqQSmNYXaYLEl n64xxFC8gjWtOnTtTEVdVK QoPS8dYZHijwDsf4G7ZCLc o2G6FEDdRGMgpPKnrbgyIF 28GJljMJ73VIvdHR0uFJSp AuCCdLDhj2TkR0zkCU2koB Bbe9PesBt7yPYeMTfnQRHp wM2hkP2bQPUyNRkudgIgcA luZSBCLiBSZWNlaXZlZCBp haDuv3PoVYpbsfBxOCVeyC VkIHdpdGggdGhlIHBhdGll tvQpD8Y6dfFvKG1dHQMyUR SrO1ZmGZVmW35aIYVbgE6g FWKaVZ4mLYDzrAsow8cxJQ ZwfZ1bUMEekZksZiEmzwKd S96tt1ccdDQxb2OrFvDfeC JxRBOdk1FnuEFhQAZmjsqu a39vhTI6gBGwiOPydfCpM9 sxWrFgmiGijEbsWIQcx84d LD76CFqpBB3dSUrzHZ6oCB SiUKKiTUXmXOX7MFRhVwK1 IDAuMiBjbSBhbmQgbWVhc3 FuyY3jSQCoIwC8NJReVjO5 OILkRgLrmOOwihNmM8bkFZ iktKIlFEDuHEEetSMlpQ7o lpPmptNsaXKvhDF9SPOkiL 4bvW56thHxvsBSNT6rlOkb POvwdF7yJWChSZLaX6Kkkt GrOAsrMDKpvz0ssZrqJJod PmMeVZDas8d5rPY3kAVtcC U3lJEtiSntIyAtKO2xsABa HN4hYXnoAOgeexOvf5SoGC 91vNZeduKnyoSfGxkwv2Pb kCTzFydrECPtYVXpw95qbB V0coGuSdG2QDOzFGFbaiXv RlZ0IJ8npBedvgUnl5B3ZS Wgt5L0HMYbET3bwT4bUZpn IHNpemUgZnJvbSAwLjMgeC IiGgUrkZXxXrDdJ90fmV1x SA43SQszVT8wHWprTB2kKH NtIGFuZCBtZWFzdXJpbmcg VF3fYQdtBW37HDvkXP3iCA LmFXteDAGkU6YaS5N9KJ0e VGhlIHNwZWNpbWVuIGlzIH C5Qc7isXWfGQKuceG7s1Fe LEiwZJWzIwhgoK6wIXubyh JjM2yBEBKkap7= MICROSCOPIC DESCRIPTION g9vsoCCnKMBhiYG7QyZgVD (test code = 3371) Zoa5lnr9QbwBQonHJeOFap mJPqdyFesu70iVE9nP34CS 6vTKScPcG7BIXkfxB6Bhq6 BYWaQCMzjLBvH038d3ngr1 xhfeIvyTY5cEmcHDZwqyey DqH5ARdcYMVcopsgHHh0KU xhIPEodSB5AFVbvCKiC3Hx WKZvDI6nbfc0UZL1MSylFO NsSnD3JGDuaYPuAENjvBis UFzxd107NOC4FcKaEUEjmb TioKjdmY0hQqLuIQMNAIOr VI1tNBycZ8wbA7HfXGKiNX hwtXxvc0caQZ5zLM3gmYrl uoGwE0yjxPWlgZDydyGxRb tmGZ6vWCGhnrnbWKCwEc2j Ql2iq5vmxerowIXbntZoeX 4hiPVgdIJ6rY0gMXHaidPk u4QjjzMiFF3fwGZqbVBwkM LqDJH3u5ZyXHMwIONcncJk AHmyA38vjdB7CWrtZTLmZB 3hBN9zMMzkxIyvx8QjW4Fp ypPqqULjg41aJ4OaaNXwti WcpcKlj6TaafIfjzXrm3H7 vJ8uIZD4FSwtos6oXRcwHP [facility]9 [id number] 18:24:44 Test Item Value Reference Range Interpretation Comments Case Report (test code Surgical Pathology = 104) Report Case: [id number] Authorizing Provider: Dewayne Wise MD Collected: 01/09/2022 11:31 AM Ordering Location: [facility] Endoscopy Received: 01/09/2022 03:51 PM Services Pathologist: Evelin Wharton MD Specimens: A) - Polyp, Colon - Right/Ascending, ascending colon polyp B) - Polyp, Colon - Sigmoid, sigmoid polyp C) - Biopsy, Gastric, random gastric bx DIAGNOSIS (test code = [id number] 3220) FuZzEwMzNcZnRuYmpcdWMx IHtccnRmMVxlcGljOTYwMV wlfyYtZPRkfQLeY6Gisvyp DAizCC2iDV8kySapeOJeuN OjZNMgUlSrv9fkp861bYWn i9avXURDcbefcZc5nXdrI0 8ly6E8RjrlI80zxULiBLP1 HNLuKEBtkNKvQKCvSHA5JY QfiGLoE8znABZcJS3uzrer KPhpVJzhFPGoiQV3YSLbyU IoL5GnXEPqSCdsKGRjjdm7 XzFrXt6rhQCtoAueIXbkRB KdLXQqYGljHQZsZgPeWT2s M60QE13hHORCU0mDN9FRO7 RFMXaPKeavSX5FHGUWO5MU VCx5MQShpxa1YQSlTXPUZA MHVFWMCOZRRH6UULEmyPNu SMZploMTKcAQK7yQFverX1 uIKG0NOJsuQB4LJFJZH9AO YOb5XHIaznm6HGQgJFSERJ KUHEQGSEEFAZ6FRWCjJFRa ckiyJNEuXe5iN3WDTKDCXA daF3uJIQHHD0RvX7WCH6pR DPDEBGAVMK5PE7zseAWlFZ RhYiAtIFJFQUNUSVZFIEdB S1JEO0ZKELaGWJIgrkx5NB VhYGHEWZwIKZnZBH6UV48G RMUFWWRRAA2BIZSXCImZVY 9HSUMgQUxURVJBVElPTlxw KDEqcBKfQT1bUnVRZDILGx MrEh7IHQgMCWsHP7SFU6MS DuPOQKIVB01GD8VUPOMSGr PKMzATJ8ZZBK2ZUGNBDGcU B7hrWLA8l1kwxQGdGFBqvZ UxODAwMFxhbnNpXGRlZmxh ezooOCTmCXQ5myVuODRrII xhMYPoBCknZf9ciGWkkCnw QeNhTUSyw8gukmPOgpzkwB r3x9ukZSQjOkT5uEWyRVqm O4dmztHzgJLvMNAuGAw6qG 71DKGefN0mgENbPYatnsXg QlO0BXswOBAoSbJ7EEKvaE IwALGcO5jhGANqTQaaFHUn GXzyiBAoNWM7pAstv9Q5sK VzaGVldHtcZjBcZnMyMiBO d1JbQDb9zSamK3DfEPGdBz V0pYEzWDDsYQjzUWPmKQBl mpF2vH94GWtkodH6mVZjd0 Tek67rd967oW4ucEHyVEQ6 HQKbIRPjxKAxLVMtFEQ5HN FewMXaS4zpBRQkSS4bmocg BMwrHXqpTLGkqTY0MOCfzH ImG8XuKGHrLVdoYGVpdoo6 KhXvAw6lwLTwjScmZItcb0 jju2wzyIVdOqd9FYPoKkCo CfzeZGqrs3Hjl8tlXPDlix 3pJXU2mXSnuLcae8Y3fNCz XJAqnYWjGIEaLW7iqHUdFG OfnZ6pswwfJTEaZfItzfhl GTNbuVajgoWmJr3bbZlnFQ L2JGtyZ8lwaN3kUaG4ZDsl L3remL7nODo3CGziRZCgsZ N6xzU5YDWehVRpY6AifG8q TSSfUN2lsja7g8zeAUH7HF vsKZZmKnQ0swR0YSHlgAIl JDQakRqrHMzox116DUD3Ba VhBWFuw7LtA3YzlMmrE89t kPxnD95nJUXzmRfztW3vsD vwcO2xPuDaWlCwAWasxPdv XV4vSSXqN0blbHVmPRXyTA ZbI4bpNwHhoY0pqJtvXGif pkMxBSWuUqg6IOUtzKLjCN NwYcl8ANSpZHJfC88vwdil GNY1hA1yz8zcc6JvMRykUB D1FSLtn37vOJowjgZ0CTfb Wv81IYfwHXB2RKirLHM1uQ == CPT Code(s) (test code n3rnmGNuSOXajTB6GfIbWL = 3357) Zwr2ygu8ZglWFdnOQsYPep wLTglrApop45yLA8fL46IX 2yAHOoNfU5EYZcdwR4Mbx8 HCCzEODkcOCgK278t0arv9 uwddNjdFA7rQwyVZKgdqhp VcI8OFyxFHRtclfxVTu2AL geYHDjsSI1EBHhaNVbC7Vc ZLLmDC9tvec7ZHN3ALnfAR VzEuP1XRLyxAOpNVDjhMxd LFwyk380DBV6BfZhUYCjdz RbsMmrqI5oVaNbGRO3GKCy NVgzXHBhcn0= CLINICAL HISTORY (test q0ikfKBjBZQczRL0UmQhDP code = 3356) Zox2srl3EurPHabQQzKLff iNXculVmgr05oID7uQ40RS 9zZTGiVwA4GHRhltI1Xsx4 GLByPRStuCAtA005i5gub9 grkeIfiIF2xHeyQXQsegye QcM9MSqwREXgqzceYRe1MS opOAJzqAK2LFYsbHWvJ6Zg ZVVzPV5kldl5XEO4PAuwIG JhOkA5YWKgqXCrWMFyvFuu ZKyas857IVI7WhScKZYlcn WugHexrA3kBaIaZDSXJRE0 yq5gd78xmQQtANWhOAMpJx s5xTXkxPQzVMDjJRFef6c6 nZOkMoFsh6dapcubMKH6 SPECIMEN SOURCE (test i7lcfNUsJVKezFF8NtFpQB code = 3377) Azx5cjs1EqkPWbwRBeZDwh eVLhxyPadx52nVJ9jV31RQ 4jKGWkNzD3HNPtnuG2Iup0 UWPcFPFzgLGzV506x9wsq1 uoahGxpJR6sSwjKFXsthkt HzG3LPaiHNKygsdoOPq1NW epEWEgmUB6PGMvjUSxQ2Zv JTDxYJ7ycqy2LSW5RJyxEU UeLkU3JQMgeKQmKTEcsGez DBlib471QLU5GlVbZPVsdj NkuLgnpZ9aXlSgFDYBKiQz OU4nfPGgYNKvgG2oGAQgE8 t8A2KiR3DfBPkcJ4qyaB8a ZBOwZSRKa1z5hKwfA20ov8 5tj0qwsC2gCQffsR4gDEVz EXFQeH5ry5qpTFwlz3ImqF MsIHJhbmRvbVxwYXJ9 GROSS DESCRIPTION (test w1rtiHHpAIQthOZiOkBfNQ code = 3366) OhSTYcj4kmZBYeiNKcKaYr MzNcZnRuYmpcdWMxXGRlZm Gpe0rtl393lRFwy7ngCWPS pcyevOb2g9mbFTAdByU5aQ CfSUuqW0ezhlKioBCtBQXj PTi8vO14PTGvxK6fsNUuFL msgwPaChD3DXtdFDUtLdD3 HBIvsENjUAXzW4mySMKeEC xkIYIqIAqmaUIdRFI9qFhz y8R4qVDwcPDzgNzxBwRmQq KyGORVu2BvRYj4aPhdJ0Ne GBGvGcV3oXZpXKPbFEdnAT LiAXYerfX0aF50JRtgzwX9 hHVmo7Lzt99ms392iK5zxB IcMXB3JBDuJUNkzARiYMVt IAW4KUFrcJCpR4q7QpOxtG YoV2X9YrVyhDXtU0P1HxTp oMFyZ4C9BoLwaEVnZGBytI ItHi4zyNOqgLYfjn1nmz65 QII8j0LsnAbvRNL9JDI5Ye BwYe4vhKAqSKYhKHJxlNQy MBYeXT9woAGmRYVdeV6exa xjXHBnYnJkcmhlYWRccGdi zzWzYg2qlXerSAR9XCgkE7 ynzR5uYzA5VSroU0ntfC3q UWy9CVutaXY6LDPqmH8kAP 8pxsasb9uwGvBzQC5phola w4rgUvOlQP2zupg8o6tsHb SoAF8cdkgtb8ufTnRpGOll QGRxxpceTFErt1VgqwtbPQ Cjz1AwO6TkfGtiN89ceVgz Z62hRVDqkRaipZ0wxXujcS 5cZjBcZnMyNFxwYXJkXHBs YWluXGYxXGZzMjBcbGFuZz EwMzNcaGljaFxmMVxkYmNo TABjVVbcO5ddQiUzNsGgJA BBLiBSZWNlaXZlZCBpbiBm y0KuAAtxbcJbPXUcwEWeCE dpdGggdGhlIHBhdGllbnRc P8Z4qyNyRO5tRQTwKZXuS9 XeXJJaC23cPMLkkH1rHCRy GY1vXFHgb7GjnxYmvpxcW9 5hb45rlJ5nsJSqFEAlMAJb a75cgUC4exNgXcLsWRAtLJ NwEH9cOUMzwdVpm8G7FZJo d5X2WISsOCAnbRXxyfkpUK 39ZZzsKE04CHzbFK0bDOTw LqTHnGGlq3PtH6anNZ1dpH Ipn7VmoDi9uXQjASzlAYFp aB9cdV5dPWYwNNconoEofU luZSBCLiBSZWNlaXZlZCBp zcTft8MuIImuspIkRQYibP VkIHdpdGggdGhlIHBhdGll jaOxR1G8blAdGV1eXOQdHI GwO7HuZXPrP45rXNDpnY0h CBWrSC1fZPFlyVeqa9hmKD UjiO7eDNQaiCuoWiEapnYp P29tz6ilwKTbd5KxXuWpaA GkFURqd0ZusZDbBFUdlivb h51xgHF7fWFbjFZwiiLnI9 laZoTpqkDnoUglHFLio30k BI59ARtqEN6tBLobHW1dWE RbCWKkNCDnUKI5PYKlSlE8 IDAuMiBjbSBhbmQgbWVhc3 EijJ5yRIIqQxO9RWYvUiA2 CHLhMxBsvZQuauCgC6gbRB sgrEFaNGNhFDAbuMYufR3u jkHldbQvbFLnsZK7NIWwhJ 0lnO62rbBbkfUPUX3trBjp EUzeuS3uBDYpJJRwI7Pero SjPRamGYBzww5zgMyfWDwh ZgKpHGWli1q6uFL4iDSdhR W1iESdmEmxCaErMH7kdMUw WS3cSLajDKhwphDss9JgBK 74xEEhjcMdcmMiKqysm4Ez nCWpZfevGABpZBFlx90hzX F1sxCaRyC9KGIvRJQcmyXl YvQ5AH9hoJkaplNfs2B8UW Jnh1H7DXWmXK7orK3qIBrb IHNpemUgZnJvbSAwLjMgeC HjOvTijFXxRyKpS59etQ7g DH18ZWlqQE7kQGhwCI4cMJ NtIGFuZCBtZWFzdXJpbmcg WH3aMBtqXI62ZTqsRM6hMF PzEKknXJWfP5NrD7F2BL9y VGhlIHNwZWNpbWVuIGlzIH Z7Ev1raDPmYNWkddK6w9Dt FNevSIEpPxshfF7fTTkucv HbY1sDOOBehg3= MICROSCOPIC DESCRIPTION x6nmoHWqTQVyfZQ2AfIkOG (test code = 3371) Pxz7iwg5MnyMUtuWShSSvn lKDkfmFain36nAB6jR95BI 5zWDCfGjJ4GLXkqoP7Bnk1 GDDfPDSqtLVlW589p1slw3 etjyDgcQW4gUjaHWZkkrcx CnR3XCrbTRBymnxsSZd1WY hgHCKaaYI4PJWdbKMkR3Fq UXVaUF1gmtc2CZK6HIusXU QxVnD5SWDfmYBpFSTspAxl CBrsd109LGE5TdOrSTTipo IbvDrueZ0lGnUwVYXBMTZm UR4lGDwtG5wwZ5WnCZNgDO owlGawj6kfGE0wES6vvUue tlTvY3fojUKypHGvmwOzRr lgAK9fMSRawfyuNTQkOg9t Am1qa9tqmekidVSydkLdxH 6yhXOfrFS2eT0cSWZozkNw d4DhaoIhHK0bxZXoyLFxjL PhYJK2j3ZvQQWhSDQvfdAr MWibC81rrfR2QRfaBCFhME 5oVM0qRWnhiVfmf4ZtN7Vu rrPcoPPcs46yC6WljLNxtw DkvuXvf9HmyxHagvHjw3T4 aK4eTPL4TYqrgm1xOEijOF J9 [facility] [id number] 18:24:44 Test Item Value Reference Range Interpretation Comments Case Report (test code Surgical Pathology = 104) Report Case: [id number] Authorizing Provider: Dewayne Wise MD Collected: 01/09/2022 11:31 AM Ordering Location: [facility] Endoscopy Received: 01/09/2022 03:51 PM Services Pathologist: Evelin Wharton MD Specimens: A) - Polyp, Colon - Right/Ascending, ascending colon polyp B) - Polyp, Colon - Sigmoid, sigmoid polyp C) - Biopsy, Gastric, random gastric bx DIAGNOSIS (test code = [id number] 3220) FuZzEwMzNcZnRuYmpcdWMx IHtccnRmMVxlcGljOTYwMV qoyzWoFAQteMUaQ4Zakcso JPzuHF4cLF5phRmuvCYcmU EhZUMcCzOzr5nlt537tHMw d7wxJQFQjhmceUk1oHrdI1 6kk3I6CyrxK02ksNBkYGB9 DEUnHVOvqJPnNVItJZN6YC KmmEIzS9anFQMeXX8scelw KJmyCDhyGRHlgSE8JPXifS NoB0KaSQFyGLokZBHwfgk1 NjRuPd3kbZVimNhuTLcsZC FvNGZlEEwbTLJdLzCoOX6i W18MA99uOCIMK2mUQ3GOU7 XQHFcEUrhhUL5RZHAGU5LN DWx5FMItmuv4ZZVoACBUEQ TFJCSFLQSGOM2XZMOksCPj HTYkxaYFVsVIJ5qBLgacD9 fUJU9UDIctPD8QMCZUF9HE TOh9FCWjlhx8GGEdZTMHUH XDJSVATCIYKI3MNAGhQOWa fmsjZZAsCk5qF7DOOCEYPC cuP4uHJWRRQ3UiS7GOQ2dH GJELWGVQZC7DX2wasHOaZW RhYiAtIFJFQUNUSVZFIEdB G9EFP3PGJSnXJRVgkjd0ZS DuHRLDCJgTCLtPCM2VI77F FNFEDTKYND3JIYPOCAyYZD 9HSUMgQUxURVJBVElPTlxw YZLusPUnEA6eKlTEISBCUc EwKb6WLRiKHZwVP7XKR6IL PfMFKKZZW00KA3DXALVBPz WYYhGRG9MOOD6AABWVJIsG I5peZZC8x3mboUBqMQHjxV UxODAwMFxhbnNpXGRlZmxh tuywJRCsDEP6nwEmFGGpJJ wrCORuBYyqVl4zvWDsqVjx TlYnOOTqn4vpmmCQuhtvhR b9d1fhUTAkKrM0yCVsRLft A5rrdaNzwEUhMBTjIJn4fH 36ZCYsfG1npQPaFYqewsHm FhM0IVcxLQDkIuK7GUIfbO FvVRBnP5rkCBLyZOwwSWZf RTplmUEaRJM8rVhac8Z0sT VzaGVldHtcZjBcZnMyMiBO m5EiFAr4qCgzY3WwJDZyFu Y2mDGuDCQkQNwtKWLjAMTm hnJ6oI42KZabnvT6qMYfa2 Xeh45fm539wO7csBZxKVB3 FXPoZSThtTJuCQOhWUF2AF YlnFVxU6ykQUAbKM1fefie EGhkGKxkGLZjjMK1KQTonZ DxW7NxHRTsEYicTPSlvgw0 BiTrCu0sdQRgaYqhFLwcz0 ebg4saiTJoRmz4REWkToNb KdogOVypk9Qeg1nrPDYmci 3mZEU0dGTndSbcv7P6jRFt NAWqzJJsAADgBP2giPWaXV BuwJ7zzaikNGLnVrIpkbpz EBVnhQtmoyTpAi9lrNuaIA I5VLfzG7gyjQ0nJvI0UNry P1oakS6jPHo0SZyaUOXjgY P0cmZ5DTTzeARnW7BdqS5k CYFpND7gvrb3b9pyDPD1HL bzEGNoYnN8ojN6MLAcfGBm NOCrjNscWZpes236TEX1Ne MiMPPhm4ZhX0PvvFmlV85z xLgqE14rTBIpjXuloT7mjI fkvW4gLyUgBiXuHMtjrJxh WV2sEUOrY3djdTOsAMIgHV IeY7gpPpXhzT4bwZodYSvv ttUgXMIfPse3MZQgzUVkNL VsEff5GGEcQRJsE68yrzxm GFI6xG0vr0fsi8FgARpuAM W8EMTqt60zDXmkyrX3UNzx Ta68OEemIMR9OMcbIDJ0gN == CPT Code(s) (test code b7ocbZTpZRMrtDV8RvNjAB = 3357) Fxj0wsc9RhyMPxlHMhVAyt dTYbnbMffl42yFZ7kR57QS 4nTHKsBnA3KAOblnL0Cra8 QGLrICVfbDTqG867x2seh7 jgssVlaGF8vYxtKOAiwsob BmC2QNbpURVbcideUXo5CZ naASEpiXY8PERfoBQmZ1Sq KMWdPB7csnr5SYR7SXnpRM UxUuE6CVQotTNiABAryStf VPefj133XKO1XcFsTHOusm OanEuxhK4hMtCgMHE7GUUf NVgzXHBhcn0= CLINICAL HISTORY (test e0vdwQQaLTRfeDQ7HrPuJJ code = 3356) Kvj2xev2OqlTQenJMpOEwz zYLiimIule17jUI0aU92WD 4vXBAjGkT1VVJrruV9Bud1 UWSiEBWbfAWiG855o9mlj5 phzsSqpIV1aZhsCCEaczbk VzD4JTryYNYezcgnKCs9FV icMDFfyRA7UXRtwXGmP5Be CGPwYM8yqly8HFN0QMnzJD JhWbL6ZFFgxMGoYPBmbRnz QQbod469BEN0JxBhNGXqve EnpGuoiK5iKqFqBMEZDIP7 nf8ku62suGXnUPOmUCZqJr o9xERxeFZrGNMiAUHqy4n6 aABfZhCkf7zgjdcbVYB2 SPECIMEN SOURCE (test d7wjyXSgEZIukJO5ZfArSA code = 3377) Jrx7oqc0SwfRKlmCVfEQdq vLCbhrTffn66wQY8bH41FY 0mNOTxKwO4LPJyxpW8Onl5 UEMjGJOdsEHtX810l3yyv5 vsusJmwHW1gCrxFSSomlsm AaW9EXseEAIsrjyoKVo1ZV atVEOhqQN2MOLgxWTeG7Qv UTXrZL6wowh8URT5BSnzQK PxVwW8GTYtqMZrPOXpqIxo FShly109XKL2YcAgZPTkhw HkiEbgtG2sTqKbRELJEkQv XZ9bqWAvUFWeyC9yVWBjU2 y5A9CmL9TtOVxnB4whyU7v GWGmSIFEm6q9oEuzQ74cg5 6hf3qvnR3uPYxzxD7aUFPd NPQUhK3ki0mlRJjkc8ZczT MsIHJhbmRvbVxwYXJ9 GROSS DESCRIPTION (test j7mrgHBmBMOwzLSxItWbLR code = 3366) HhBWIdw8tgUKDaaOVwUpTx MzNcZnRuYmpcdWMxXGRlZm Dkw7tlo292pXMlb6ojTQQW xuspmDe1c2wzJUSdIgT2wK XtRGnuR8ujpgKlaSWkXBWy EGn3yK53IDLewM9pjVSuFY akuoXoWrJ0XZnhTBNhAtU6 FOZurAJyZCQhB2imTFAiXU etIRZmUTplrYUrRVE7oQrc t4F4uPTenRAqlTdwXdQhNx LpGNFMt8UvEZz3pSsiC3Hx USDtYlP9dLYgEEWfRNjoLB LkVRPijqC2cR24YJbfgeR0 iXGen9Xlg61ky453sZ8nrW DhTFS9STGoFVLqzFPySPUt WII6UXZvhRYtC3l6VpUzeK ZwN1Y7UxIylRHdN4P1FnYs eNQxW4R0DfWquUYtDIEpzN AdYt4trEUuvJWcsy0nbi77 MHF6j0UzpXkzHCP7LFB5Ye WkJr0gsDKaEOVcSXQuhHPt EPIgWF2ptZAjAHPzrW4jwo xjXHBnYnJkcmhlYWRccGdi zdDtNd6hdAskSHW6NMunK6 xobX5cBkA8DXbmC2oyzG1v IIa5RExhwTY3HAAmpU8dIN 6evjswd6obOeUqJQ8khzoy a8faFuFvXB9zsun5d3mzEp YdXZ1amswmh0enQvHuLFvi NAMxwpytGBBkq7KncmnbTW Saq1WuG6BaqRnhN53mvXpn H18mHJJkvNjsmX7qnLoqjZ 5cZjBcZnMyNFxwYXJkXHBs YWluXGYxXGZzMjBcbGFuZz EwMzNcaGljaFxmMVxkYmNo AVZkEUsxH8vaJcJiXkMhGR BBLiBSZWNlaXZlZCBpbiBm d6HgRGzowpObFDZajBIwLS dpdGggdGhlIHBhdGllbnRc U0M6hsYdGJ2aDCBnPVRlK4 QhVFFmR65bLRIgeC5rVEBi GD2tFUQle8NkkkSbhgvaV3 4nd69cbM1imYQpDSCmCVQr k46xgNJ5unSjYhAvHSWfFG WjJC1kTOLcsuFpz7D1UAAt k7V2JEAbSXLcfJKlkkgjDW 63NJwqFA59WIvpNS4mVWLf HdAAsQNqo7AxS0lcUT8vdF Vdg7TvvFz5hSNgWYzbYHPs wA9ocP3rKUKmILzhjsCfzO luZSBCLiBSZWNlaXZlZCBp eaRav6WpHWieysHdUUSzrC VkIHdpdGggdGhlIHBhdGll doFbR6H2eaCqOG5cPBDdBM UkF5DbSJFvG47mVHZljH3f KOKhOW2dRIMqkLmeg0hsSS TmuL4mTSPtvCqvSaDcunRi I43uj7vloBQek6YsYcFogR GkUUVdp8YoqDMhCNUmxpsp v27ptDD1jMOczFFcriQvQ2 xdRuDmfjEeyDbqZEUdx56r FV74FBwjVC2yRXteQZ6xNF BuCTMtNHIxDEY7PRVcAfU0 IDAuMiBjbSBhbmQgbWVhc3 ZidW2gUHSbIvK7SOKbLuH1 UADkYeZwmDMuslUiC1axCT jfmMOsCTGoWMVipBZnfR4o rjEhapTncQFdvJD5TZMjxM 0ysO77dvVqhaULSZ0ohRbb KJrkjP1kZWWgTHYjY1Bmnb VvQPlfLEKgvk9vqJozPXaa DqWxWIJqg6e4qNE1iWIxtR L9mZDblIfaQcWwYD4aoSUh IH1lTMwsCMvpevOca7BcVA 23aHZmetKibuJqKarfj0Xf vEPbVjvdPPMrLBJzg39iqJ Z7ksPhZhT8TFBoUJZosuTs PrF7ZQ4wrCnbdkBxh9P7XV Fhy8E9PFAoFS1xiF9kDGix IHNpemUgZnJvbSAwLjMgeC MkOfOqmZWpVaOgQ28dvQ9u CV06MOzjND6sNRqxBA2sDG NtIGFuZCBtZWFzdXJpbmcg IH8uFLsdGQ59IHcaUX1cAP GiAUzfHRAsA3KpV8U2DR9n VGhlIHNwZWNpbWVuIGlzIH Q8Rd5lzKYuOTKqkaM6c0Zj VUorLKEsCrsvwA7qJIeaph XxF5yUGLHrut1= MICROSCOPIC DESCRIPTION g7pneCAxKNJcgTZ0IzMrHT (test code = 3371) Maa4nlb7AklXBcqYNjMWdd xYRktvOxge04oRH1yS37QT 9iNLQnJlO9GRHmhoZ0Fpq3 BMMeFZBwzKJfN635v4ttw2 wtvzTbnWY2gRtpTOOwwfmg RlR4INxjRXPnzvctMOm8JB ttIXWwkNL9LJXeyJAbR0Mq WYOsIY0zawc6TOG7XVzqRF NjJqE0NTCamCTuVIEkzFub AZokx857AGA4SlKtXYTbdj RvmMsasY7oZkQuPRPMRVLj KK7pONosA8feW9MaQBKbEY vpbFtfg9qjGU2cEN8dkKxs tzEgV2zwhMEenBDhurToRa iwTZ7iZECqxutnRSQeRi3v Ly9ii9lbyizqpQKtgzKzfQ 4hbSQuhEX7tV1gXZTkvpBx t6YwgyDsDU3acWXofFXbtV PvFDS8t4EsVQQxHTLifnCc LLhfL36hglK0EZetMZXnQV 1cXY1pSXwjhFywa1YnI6Cy rqUdlAUjx47nH0MylSUpwe WcfdMpu6QvwyQindOre5R9 hQ7zNLX8IDdezl3gVNobTB J[facility] [id number] 18:24:44 Test Item Value Reference Range Interpretation Comments Case Report (test code Surgical Pathology = 104) Report Case: [id number] Authorizing Provider: Dewayne Wise MD Collected: 01/09/2022 11:31 AM Ordering Location: [facility] Endoscopy Received: 01/09/2022 03:51 PM Services Pathologist: Evelin Wharton MD Specimens: A) - Polyp, Colon - Right/Ascending, ascending colon polyp B) - Polyp, Colon - Sigmoid, sigmoid polyp C) - Biopsy, Gastric, random gastric bx DIAGNOSIS (test code = q6zfxIAtFCNfx9deCVVdvX 3220) FuZzEwMzNcZnRuYmpcdWMx IHtccnRmMVxlcGljOTYwMV nngjHzUDBocOTbS0Igmbvd LZkmWZ5eXS3thErqrDTudK VgOOCaRiVui5jgo498sEVz t8wpXTOTmvxoxTa1yWpzV7 6wi2O9VqsuU99eeFKmVCA2 TBSlCWHkxUCcDNBiJVU6PN OzfNFyM3xoSXYkVN9ofpki PAmeUCojQIPlfOQ2QJRevI ScY7VxIWCgELjcMUCavwa5 MbNwOb3plITitDjiCJymKF YcRPVuWJsoQXByKwKpOC4y L59CY20iPRXBG7fXX6XDK3 RSQUpTVxnaFE6VYFIOI6EB XPz4EJQqrmk4EYCsZEGWSV VNSMZJEGOXTN0LRTFubNQv OVDikzRLWbKJD2mYMecfQ3 cPEY8CFVysVP1MICGTL1EZ JQy2UAUnokf0WVSiAKZYNB OROJGOVYHKPG2GBFEkRCNt adeaLHHlLf6oR5XYADERZC taJ2qNLIIPE0FzS9NES0jN BADZCKNFFG4LZ6agwNYdGS RhYiAtIFJFQUNUSVZFIEdB F0MZZ1RCADvXSBEbjpw1UH DeNEURXZvIWFoNOW1AM05V EDCKVJLYTZ5GFFYAOMvTKN 9HSUMgQUxURVJBVElPTlxw HQRegWOrAT5qHzSPOYQAIw RpQx2SUZxDYVhLN8GPV4ET HlLBFDMCU47PQ7EFZHCXTn PFSoALI0JPCE6VWFZRDEkJ W7auRDL3q9idfMQgWGQihC UxODAwMFxhbnNpXGRlZmxh ftezYFHyPXE4kdLoJBLeYC kwMXYcXEkwFw6piFDjaTad XoLpEFPgo3utpcRBxggtsF z2y8weZYYkKeZ5uCNuPRqx I6luunDtrXUiGJWeORq1kC 28QWZszG6yoHLzVMbomjSk DgV2LWvjAAOeQjX4SEXsxM UlIWJaY4alYRMzCXxwUAFj YFkgzWSyQUJ1bQpod3T1fT VzaGVldHtcZjBcZnMyMiBO t0EcRIm1pJejB9PdMMZsAp V8xDLuHTItUQezLZGkDWXp bpV5rH56RRkrcfW5vUSol0 Wnj77qs674cZ1zmSHhPZS4 RLYqQZUhiYJiZRNuZPH6HM CluACtT4mzXBUvFM7dqwjo ZRsuVXgbWLHpqHI3IHHymA RkG3NwNZUyQJzxAWHzrat0 DnHcBe1ssDEbdGppONujz5 gpn1dmkNUdMup3DNIsAgUp QbjwNGbkt4Coc1ukOUHnol 4uNYJ1oWUpgAkoz8A9tRXo BMRhuDUuYLBvWL2soEEjZU PgtR2uvuyiSDFhQwVflvoj NEZgbJzahuGrCf9qeHokWM L8RBfnL9wvtO1sZyD1SRec T0tkjT0iHAn5LGeuVPFesS Z4abP0LDVwkFVhS0EdxE1r LBJmKG2pjhq5r6clFHO7OR ofEKNmCfE8pjU9GHUczTRm DJQcrMzdREmcm824HXO8Ka LyMWQog2BkD0IgbKidT00w rNntK45oILHbnQrzjT5rdG ezvX8sGlIrZpQxGIwicNtg AF1mPQHkZ4hggARdNLAkKY DcN7bqWpHvlF5ydZhrJVol ydQwTOQjWrc6FATtoHStGE PjZut1AZSbPKRgN69nmnzy ATK3gZ0ze0erq3IxEIgsCX A8WBRcc17hTWqainP3WNjw Cw78OFnoXTB6YImdGCX3wJ == CPT Code(s) (test code m3dlsOTqVCOreXH5JvUoUE = 3357) Qjp2oql9ToyRRkfFQtRIxe cXYyndLgck40mDA8rO04XH 9aNYRdGcH4NRHaulG2Vdd8 GJQrYCSbeIQrA585a5eck8 pygiKhkIB3gFvyGBDeqxtt ThL2YHasFQSwzslgNMn5EK dtFMNpzNQ5QMOxxFRyC7Cw FFGhSB0jzyz8PGF8VTkqIM LdBrL3ZLQpvVSkWCBgqYhh TYxea631IOK8CaDvYFNugd DppItvxT4hGdKgSPD6QPAc NVgzXHBhcn0= CLINICAL HISTORY (test d2oruEKhQCDjzLK4ZxFrBQ code = 3356) Gjs0zli7JnvKLtfJXwFVkv pKLotiWotp79fSK9mX56ON 9vUPVjAaS1JUWvvaS9Oen2 OBXnGNCgrQRlR457q1dhw7 okzkMgiLG8aOnpMRSnsnpv MhQ8GLpfVLMizaobPOi3VT hdHXTkxSP3AODwuACsE3Cw RFQsER1blcf0BQL2JOaiUD BvCfF1YEVvrKPrCRNxtAzu VUdda426WHQ2LuDqMNWtyn XalWjicR9mLzTeQEZNHFV7 sv5ol39fyCOeWBVwGXVeOd u4wAYevUVzHTTlAWGdr7f9 dMLqPsBhq8tjneazXBJ5 SPECIMEN SOURCE (test p0epiDAwOJMamEI0DcBqTZ code = 3377) Mae0oeu7UdhNBvhEKhMRid iPHdvmImfb46tUY2fC27TJ 9bFIJeOaK7AQJfimN9Ste5 GYSfYZMwyMCbZ229t3php5 pcyaIkhYU4bKysIISwawpj WkK6DFppSGMpgsocKZv8CS meVWDhhLL6ABBjrFVpZ9Lj SNVgWM1hvzh1GOQ6XOrdFL KyPqE2ANSxaHWcXYDdpXrn AZswp938DOF9BmFjODYrjg CbyXuvkR7bFmZcYXTYZaVn FR4lyXLaZYHcdD3jRUAvG9 q5Z3GaP2DjZQyoO0wfaA7q SIBbHPZYf6m9sPisM28hp1 6au5wumK1eRCoklH8uHQHz RQRQkQ7hf0ygIZvei1LzxX MsIHJhbmRvbVxwYXJ9 GROSS DESCRIPTION (test y4poeBZmRSRwkJMzGlYzAT code = 3366) IeBWYca8bqDRIqbVSrQoHf MzNcZnRuYmpcdWMxXGRlZm Gku0ymb350lBRsh4yoXLXQ ysfrcNr7g6rxFFDgTcR8yA JvKClcN8ocypWisKDqDYUl JPm9lC99VQMrzF6oyTMoUA stguTrGwW2FWmdMUErBiR6 KHSdjYUkZMPsY6gpFODjZR jmCKNgQRowzJAeNVH2nFao h4I9qKDsmSDhyRzoDvMnLf EmMYWJo8XvYGw5zTntR9On VQByZpR0xEAaRNJjJKluJV VqKLWvzaH1kF04AHpbetI0 qOYaf7Ojs90ey850lV0dxG NjNXU5YTTbVGQxlHEvRPGm ZFF4PGIymDRpE2p1PrZjmO BbD6N4SjTtlVZuN8K8ZcPl zUKgO9U5LoJuwHEkFQAzmH QeIa3xoUJorKMayr7frj87 AAR0i4JpoTxqRNI1SSK2Vq WgDw0okSWaHHKyMJUmhJGd ERZtSF3zuZKdMWYpsW3kxs xjXHBnYnJkcmhlYWRccGdi keFgWp9asOobKIZ8MFvbO0 nkrY2jSnP5QTazC4jurL8f WNa7WPjlxSJ8NDUheV3oEX 9pqfgzv5xfAnXjJW0yyjqg j0ilDxGhVQ2wsoc6t8kmZi NtRT8osrnap4dpQkPfJAyp PHTtlvorEHAdh0OnceglSS Eug7WhX5AixWosO41unFpj X73pUHKxvCrneA3raFovsX 5cZjBcZnMyNFxwYXJkXHBs YWluXGYxXGZzMjBcbGFuZz EwMzNcaGljaFxmMVxkYmNo HXYzSHxdU8grBiUfJyLyJG BBLiBSZWNlaXZlZCBpbiBm t7LmEPnvwaNbATQbeQSjFG dpdGggdGhlIHBhdGllbnRc I3G3rhMsHF1gCRLoNKQhQ4 IhOXWiG43oBFGsiY4zBZLc MG7eEYOjg8GrxoUtmjaaX7 7zy67wcP6rxTPmPTUoBAPh o14uuNW5fgNwXeFsNCVaHT WzMR5cPTRvcwCai8X4QRCo n4T1HOWcRMFwyGKvlolwXC 83KFgeLB48BLjbKJ0bAZTl XwKTyBVdx2ClP7efYM8opN Wqo0SvhXg8jSTvFAsoSAJu hX1mgK3xURCwLRqjbmWheB luZSBCLiBSZWNlaXZlZCBp ggBoz0ZuOUtmheIxTQUpwB VkIHdpdGggdGhlIHBhdGll ktQzR5K6eqIvPA7hZOBeRM InP7GcPHXuD74bXLYycX7h MRCpUJ9eUSBqbCeyq4mnXX DitN7rBWWraSyxPcYzkfDa S81pi6cofQDob0TxQbCmfH QbYEQfp6DpvUOpNAKgxsoz s61zzKU0yUEasEBzioErK8 wdHvUxshDakAulIFZtv96p EM14WBijFI7eWFzbIK2rRZ KsZXNkMUGkHOX1GWTvThZ9 IDAuMiBjbSBhbmQgbWVhc3 LmrR7yBTQsYaN0DACgCdD8 XBJpEnOgxNAlmrDdC2kjFK tjwELbIUVgDLZqsFQaoY5t trZrzyRxyIBnhIF3IKXbwL 4ajB46grJtgoISVF8veZow XSrlhS2oTPZmKLOnB3Njcj DePPnsLYExpe9fhBdmTCbc EkDfADTwk0p5rCP5hYXsbN F6cEEkiDtrDfVySR3bbFXv EZ7zZYfhVUllajKxh8JiEP 47uFKkveEsjdLuThwzz3Es sPRaLbkkHYHnUBArj20kfK B5iyRnVrJ9NCFtNOVkboZx VkS3ES2shLicvuDed3Y9VL Zhp9C0KFLpEY7xnY6aBEnp IHNpemUgZnJvbSAwLjMgeC RsPoJjoAXfCdDaD02akZ9p QR42VLgmTD4mBMtxTQ6iNA NtIGFuZCBtZWFzdXJpbmcg AT6dNEzrBH38HUzyJM5oOC SyGQqjOUQtL5RjB6R4KX1i VGhlIHNwZWNpbWVuIGlzIH F9Vg0xvJIoZCQbbdF2y2Dr REqeJWXlKppvzS5wWAydmb FdZ9fESKPsls8= MICROSCOPIC DESCRIPTION u7etoLFwVNItrHJ0MiYkGL (test code = 3371) Ylg9zjj1YteOVquRGxWMzp vZKwivVibh29uPP2wG24QH 1vDEKfJfP9FHGielU3Ekd5 XKYsZCSquTZzI167s0lea0 jfoeSgmHH0oFnrZQFtgznj XoG7YVnlNQAgdotkEKa9PD vgWKWxfVA5EIGogLEkW5Rs MVQzSP3raec3KSR9NVveFP NlGjV8IAVstAFhJENggZug UHzit567ULA1TuEwVQSuwt KnnXvkpN7hGhCqXKAEDLSr KL3tKFtuW7grY9HdMFNqTO mkoGzws3gmEQ0bJJ6oiTfv diYvW6jgzRMpsORaddQvKj eyQH1eSDYnuweiIRYsLn9d Sv7ue9ywylngwNCowwOhaI 4miSHzeHY1rP8aVAAxgdJa i7KcybVoJL5agXHavEQxtM InWRU2h6KbDOPhMSSxirGw AYasO79pzkE6HKxaVDLpHP 9jYH4iZPcxpMjbq1VxQ3Xc taXdmKLig13yJ9VtnWDdgs DqpkMcm9KazpNckoPlm5F8 wD8aNKN5GVmauq0yCIknWR J9 [id number] 18:24:44 Test Item Value Reference Range Interpretation Comments Case Report (test code Surgical Pathology = 104) Report Case: [id number] Authorizing Provider: Dewayne Wise MD Collected: 01/09/2022 11:31 AM Ordering Location: [facility] Endoscopy Received: 01/09/2022 03:51 PM Services Pathologist: Evelin Wharton MD Specimens: A) - Polyp, Colon - Right/Ascending, ascending colon polyp B) - Polyp, Colon - Sigmoid, sigmoid polyp C) - Biopsy, Gastric, random gastric bx DIAGNOSIS (test code = x3crsKLgYQJrf4ozHDQdxM 3220) FuZzEwMzNcZnRuYmpcdWMx IHtccnRmMVxlcGljOTYwMV qhmpUoUIFelIYoQ6Rfbrwi IXhuXT6oTR0qeGtqvBUcqI BqRMUhMcHfk1eyj937xUHp y4sgYIDDdovlqPl7eZowQ1 4gs6G4RnplM31soHKtQJI1 ZHOpUDRuzSTpNZVyNAZ9JP OmhFHkT2dzLMBqZX5eoftc CJisDPfuYFWktUJ3JDFuzC FzQ1WgTYYbYKmiACTaqhl2 LrTsZr4ctZZweTeaRCktJS BmWWAmAYftBAExLrFeBW6v Z91CG57aBCPGM8bFO0MPE9 YIUQaZSzjdVS4RIZIIL0NU UZv1SUQowdd3MADfGFMFWL NRJYGIPUDFCC1GEDOieFTa CAPzbuGTUbRPU2uOBbxcB4 oMZL6BNXqvKX4XYAXEL7ED GBp9CQYiagf6LVJjVEWNBI BLSNNTRLIIMF0MOAJxOPDf giaaXAYeFi2eY8HHKYJPPL goK6nOSWLXW8UiO6ETG7tO LTNHZEXBNI3RF2eoyZQtZU RhYiAtIFJFQUNUSVZFIEdB W0KWY9EPISdLQWUkulq9TL CqPUSZVKcXQXrIXX4FC79T VAIQMCJQMR2IGVKIZTkEMF 9HSUMgQUxURVJBVElPTlxw ERFuqYUwSS8bHyVJGGPECi JfLh9RAYrTBNaKX9OQB1BC WvLVWUTSE96WU6RLJCXXAv QVXoQPC9GGQL8SBOYLDWeC R6bxWWE8o6khcSBvEPKocV UxODAwMFxhbnNpXGRlZmxh nufpUBIeUNB9hsTcMLBaKN wxLORdYQjzUx2fnTQndZnq CoOhHAXuo0xipdTAjjkzhA z3k3ebARFgQkH3lWCzJTgd U9zfroGuaPMrRKLgRHz6uP 77LFOghW4aaOArCFpeedCn KbT0OLwqPFCrMdO5HHFcsW FqUIPvP9coRUFjZIipLYCh AByckINtKEL3eDcmg8O8oW VzaGVldHtcZjBcZnMyMiBO r7QkLOd0rFzeU5MtCKAnIm C6sXXlBUNzXSpfXYKeHVCe neT6uD84KJauvjM5vDGbp7 Dlb90li217hY1fpGSiYBN3 RSGyKBKvuPIbBDVgGMA5MI QvrSKkX3byLRLoGL0wvpeq KDysSTwvHPZkwQF8LLXeoW NlT3JsLTVgPAauRABulsi7 OjJmZi0sjVAgtGoxSAqhm3 jwf7qxaVDeLil6NYChKtJw JnjtVZxrp9Swo5alCAZzie 3gUFI2qAAjeRcpm6D3mVFa VSIriNVhEEMfQM0scVCeCB YhvI8dqnjcTXQgPaTkgirr GFXsvMrxopCpDs1lyCapWV R0PDjuI8dyaR4lStJ7UIzv U8kvsD2qAWh3GZzoNLJwqT P9sxP5FEJjyLEwW4PlrC7a NWBuUR0mqoq5k7giDRK6KP waGUPeZbV7khU9NCTnjRTq ZIVpiJibEFiwa601SKB0Io TsCAYtg4XhH7JzyLucN54r bMdeP16gNVKyaTwwuS7swT fbkQ6qPaSfWkYgVNwcjEja VB6jQBCjG8ldmTXkYFJoSW PfE0vrOpPcdF0uxQwzXMpc afAvXEFuLvr0XIXxcSShEZ WlYax8QCDlKVBsR43toaiz UFC0bQ8hh2vvi0WaSIrtSX X5LKQda50mSHqgkeI4IIfp Zy05FTuiERB7QUrbODQ9wB == CPT Code(s) (test code t3jccIBgFQUjnCE5HcIjUK = 3357) Wmk3wky7FbyPXzrTXxNMhv mRUludPwlx13wYN5mX16MZ 2kBRJsKdN3CBMatbP2Whl6 IYIpHMSxjUZjG199u9hbf4 zrkjDsoYE5mNkdWHSpiqjy WjU6HLvqGHIhpstlGIm5FJ xbYVAtjKG7RAXzlFTvL3Ct EVSyJP1ffkk2EVZ4SCweWF KtFiM9AKHigLKiUMEjfGmn RXdxk440BEN4CiKiXVIvzk OfjWuqvZ3lLlCkQSM1HZSx NVgzXHBhcn0= CLINICAL HISTORY (test n4gloWEuVHUocIW8YxGmDT code = 3356) Nxb9yyo1YatBYimEQfEJzv oRNtuwAenp33eLH2kH70DK 6jWVSiZyT0ROVtcdE3Zeo6 HPRhNVNjgPSmW081a3wxh0 ozmdYozKV0dEzkBQFrrchb CaM9VSmgJADujfuxKHg2BN quNTCbyKO1VFViqGGjX1Ht SHTbLU6dnix1ETR3RXejKP QfQbJ1IKOirCKmEHZdeMpz PZzjw915ZUM1HdVsEEHykk FcoCgrzT9xTdLcJUZFUGG5 bg3nk32snPOlFENmEMMeWu n6lOVnjNXyZWMaYSTle7r5 iGDdMeRiy5uswbalJQF6 SPECIMEN SOURCE (test d9sdbJMdUUXwkBT8IyJcHI code = 3377) Hgw3omh2MwqPEesZYlLEdt kFFiqaRslg40mXU6oQ98FL 2tLNZfGoH2KFJbloS5Fqa7 AWDqQSUhjKTbP936q0jqh5 woqiTaeVK6qJcvDQNspdgt UcG4KEsrRRVyemzrRTx9NK rlEKWdsUE6MWAqfGEbM2Hf CWObSS6sstn8DRK3NHjiJF UvCqZ0HWBwkKMeTOTroBif SGwgm356KHV1JkKoWSYwxp WjbHxluF6gClCxRSFIDzOj JP0ntTKyYCRedW5jEEJhF0 q7J0ByA9MtXZprP7zcoN5j HDDsNZAFi9d3sIbmL69yr7 4hf2kvcL5uUOckcQ2qUKAx TVWMeT3ly8jpUYczq9FmuH MsIHJhbmRvbVxwYXJ9 GROSS DESCRIPTION (test j7vlzHNxINYfvGTrAuTlNO code = 3366) OnAWYbs4suGQXweNVhNoGd MzNcZnRuYmpcdWMxXGRlZm Wop9suy540yAPlc8jcVTMZ taoccSd7r1gaRQWvPfF8aL SkGRlyN5tmqrDzeHCbZIEp ZJc4gH06ZCIzmO7liREgPM gguuZbQnL3GLpiSIIuIwK1 YAFgfDAiTWXyS4bvWIWyTX toOWRxLNqrgJAzFIP5fPtn w9V2uPGqoKUywUkvLxBsRg UdZDMAo1QmGZz8tFbkN5Ku EEOoAhE8tNTjWHEzJNnqTB DlDWVhweP8jJ17QIthxrN3 aAVmy6Rms94by173aO8aeI DeSCW2UFDgRLFzqJVgAFGn EXP3MVEvoMHuG2q7LbPjuM KfL9V9YpZmeZXuF1J2GyAy xWWtY4E1GaJfwBKmKDUktC CiSq7roCOxcFBivh7vuu29 VJZ5l7LrbTbdLWA8VXR1Hx LiTx8ifGCjKERcQRNvcHBx YKVeUO2ceSPiVQNtzK6dce xjXHBnYnJkcmhlYWRccGdi inWhJw2zwQsxTIS5CApkZ2 irvZ8cCqQ3VWkzA3yecZ9s ZMq1XIsbgFT2CUCwdO5kXK 9xbkyam0hjXaFoDD2qxslr g0nxZzBtCC6ujoa8y6tuNn TtKU3mkytzb4edTqYiWHgy CAFguohrFFXtl1CreayjNL Fzh1KkO4UndTajG45urHbu F19xNMDcgOlthY8axVwrkN 5cZjBcZnMyNFxwYXJkXHBs YWluXGYxXGZzMjBcbGFuZz EwMzNcaGljaFxmMVxkYmNo AAGdQXffV2yjWiMqXxXoBQ BBLiBSZWNlaXZlZCBpbiBm y8ShTUsosfPsEVKcsCSyEQ dpdGggdGhlIHBhdGllbnRc R9P2gzPhEX9tYPHbRWXhX3 BkLXXoD94dHJTddQ8vADCt HV7gMYXjm1AhgmVkgtslR4 2ld47shP6pvJQsRSJbSXSp k55ckXB0xqAyWfMnNKTzZF IvTZ6tCAYheyZdr5T0KWZm c8Z1BJPuJJEwpRWvgubaYQ 53GMfuOV66RHzkHF2xUTTs VhIXpGQel2CqY9rcEO5xlT Qwe0PbrEw9iOPdFQxnYRCw iM9jrP0vBCTbRKyaeqIetI luZSBCLiBSZWNlaXZlZCBp krBbj0NrTDbocnBwRVOudJ VkIHdpdGggdGhlIHBhdGll nuBrQ0S2uuHkPO8mWVGuYH OfR1VdKSVlS34hIIZqwF3d OCGdCX0pJQHamJwks0llJR VaxF0kFCVmnEglHxXffaQo N85va3zbiHWty7GzQqWagQ YaKVMdq1OdwNCePPXjbxcq n17hpEP0lMSlaPAjktCnX7 hnYaEtykXdsNfuNTLvk62w RY60SAhbXI4zKMerWD4aBX DcIQPfNHOcHNT0ASNxEwB2 IDAuMiBjbSBhbmQgbWVhc3 GmfA4lGWCsEjE5EHOvTdC1 KLCzIlWcwLLdpuYhY8wlBP xnyXKoVDGqITCukETkpF7x jiScujVdsTSqdRT6XVNfrF 4ezZ72omZnjxSUNR9wqIss WYdvbQ7nZNNnUDKpA8Lfpk JcVKbgBZQcen7mcSdyPPyw IrTsIPCkc4o6iAZ2aKDzqK W0bYDupSyiKdNpAR2vkIJs DJ6zKMuwFXelquWwu6OgCO 50mNJueoKyanUrPsgaf7Kc rPYlXituLSIqBEKrr47hpU D8yhSjItV9YBZtERNeqgQn XaB5NV4ijHbtnqXcx5G9DF Xrs1C2OASlMT5fvZ5pQUvt IHNpemUgZnJvbSAwLjMgeC EgBfWteSHvGyMeH75alZ0n NW67SDeeQE6qARpwGD0dMX NtIGFuZCBtZWFzdXJpbmcg WZ7oFJgcBH68JQeoVJ3oGI NjDPorRLAfT8HuM1Q4OD0o VGhlIHNwZWNpbWVuIGlzIH Z6Hd6nwCAvBTSfzuH9a4Uk QPvpEMDbCbhurJ4mTIwpdm NgL6vAFMBjnw4= MICROSCOPIC DESCRIPTION l5rbfWAqEUBzbMA0OnDrGE (test code = 3371) Key1pmn4FdnEUxyPNlXCry fOQkacFufb17vLD9mL07YU 3aIDIoDfY4GOCndvB6Lpi0 QXWsQVLxyBMlT893c8eue9 tvsxVzuPV3rAxqUEEqqwya ZgM7TTsyBASmkymyGEp4ZT rjFXRmlOJ5RWPjlFOhW3Zm MQGnJG4cngk6DJD3APbbVX MwHqW8XSSjrLMnYTDqwRiq SPoky158JEE0EmHmOJYujl AzhOoyuE3xWgNvBYDLKYQj NI5eNHggJ1syQ3ZdCWKqEU ojaGmip2rkEF9yZZ5vlAfv sgZqQ5kqmOHnzODnvfVtSs wbWB7aGWApkpueXXIdQl9v Oh0ea9fnylsvgKAhxoElnY 8yhCLcuAA0dS0mEPYrchGu l5XtucEuBT9mnEXukVDuqK DiGRN4y6SmUTDwHOBkxxKg LRhmQ05qdsE9MXzuIDHdRL 7mQT1xWQqakKefp7LaI0Ry mbAbnBCmi19dT8OztCVwzx OujjHkl6JlorYaaxJti7V1 jE9vEMH3VWfbgh3kSTgvPN J9 [facility] CenterTissue [id number] 18:24:44 Test Item Value Reference Range Interpretation Comments Case Report (test code Surgical Pathology = 104) Report Case: [id number] Authorizing Provider: Dewayne Wise MD Collected: 01/09/2022 11:31 AM Ordering Location: [facility] Endoscopy Received: 01/09/2022 03:51 PM Services Pathologist: Evelin Wharton MD Specimens: A) - Polyp, Colon - Right/Ascending, ascending colon polyp B) - Polyp, Colon - Sigmoid, sigmoid polyp C) - Biopsy, Gastric, random gastric bx DIAGNOSIS (test code = a4ynvJOtVBWzk7zqLDYiuV 3220) FuZzEwMzNcZnRuYmpcdWMx IHtccnRmMVxlcGljOTYwMV bcncMhTZDdhBBaF2Sdwwjg VYqlNR2pIO1gcYkjgNEddY RhYCLyDiFan8brh232xHIf l1zgGRDByyuwhHg7gZztH5 9ys6O6ImehA00syEYrCXS2 INMzXJHxnXJoKZFeIBX9GO AxfGRtK2leRRRxPZ6krvil LEwqULtkLQOjbDT3VLLuvF AaZ4FpDTEjGUrdKCRojqj3 ThAhTa6itJWxhLwnXWbtYX OhZKIcEZlnHHYwWaSfAJ4d K40AH92tERGGU9nRO8OWL3 KCSSaCHeitUZ0VEMYGS9VL GMx0ZESliyu0YTLwDRLKEN PXUIYHWUFHKW2YBSBljGKs YXKtiaRAKqZHO6gMBcopK8 rHXD6HXUpcUF6RDNGYI6FJ YWl3JDIpuun8YFXqIJNINP XQUBXMPHBWVV2WAPWoQHDj eobnWYYpCx6rW1IEQKICWX gkJ2bQMSOKB6LzL9YJE1lU VTHXJRVOOA3FN0bfoCWbVC RhYiAtIFJFQUNUSVZFIEdB B8MFZ3SLNDcFNWNetib7RG QxWUOCTKiKDAwWBG3DR31X ARFQQCZVZA8VFHIDUEaJCW 9HSUMgQUxURVJBVElPTlxw WTTlkEAwLX6yZlCGRPRQHl QeIh0KMEaNIXqDD0FAP9CQ GgPBBKEJA58JH4HNUCJZSl CTLbLNE8MQYU2WKPNEMShY V9yeHHF7s3ywmFZyWCLktK UxODAwMFxhbnNpXGRlZmxh sizpMHQoWOK4nkVyXPVwEV zsCCEtUAygXn7hsJZjwTqf VmMqONZhj7nqxtZFtovctM c4c7gdHWRtFcT1hERgSRka B7rpekCvfWXhTQXvULl0dP 74QYBylH5buYHtUCtnosWr YjV7EZazJCJxZhS8TBFjnU GtHKPbN4kyYHKxOGvxVNCq QIqflRPqMFZ4hYkoq3I4tO VzaGVldHtcZjBcZnMyMiBO o9QiZFg0fWjgD4FwSAUuHu Y2aYGoZONhIWxhPTQgVFVr uqE2qC16YEdwrfS4zOJzo7 Mbr79rt900oP2sfIEqIWG0 GFJsPTJezRTgWCFtWAK1GK HpjTXgG4ruZZUhSY9jnuvc AYscOHvpWMCcmPS7RJTktJ EqU6OxXQMpOVbfGNNubno6 DxKzKm9joGXbkHfbMZccz0 vmq6zzjNWbIwr6CMIzXmXw TibmPQuxe8Iyr2ibESAzbp 9pRNZ8zPWoaMrir2Q9dALy EBBioZCwFROmVM7saIYsAP DvpW7bjyptWLDfVuRigecu YVYmoYirmiVwVi3liMijMZ M1RQqoL9lqwR5kJpC3ZKec X9vwgE8vVWe2SDizPWWubH W8hbD9TMZgrISrR5QsiU7h FQHfCJ3cczl8m9ppXWJ9PL ryXVJxCkM8gnA7LKMxyEGd RENorFinCYgnn828SAI6Qv DnQHFwz8ZgC5YljFdiT29z xZfmO28jGBQnkNmiuQ0vqQ pflB1sGjTkQtGrZXbhqJzw XW4nINEaY5mmbWCdJLMeAR PwM9ecMuEqiK2xlHvwUMhe ryHlWQXlApo1DOHgoOWaOF YgOtw0ZIRqMXUhI28auvop RPV0fH4pr8tws9HbOBpvHI L6LZUkm05oZFgjbaM0XWzg Ig07QOzePTP9BTssNJS1kP == CPT Code(s) (test code t9tayQKxNGSymAB5GvWvWH = 1107) Sxz4hfp4JmcTLzwFGzQRzx cDSwvzQljp79sON7gR28UW 9xBTKhEmX6YLHfjiD3Yzt2 HIMgLONpsRAmQ840v2wuq3 qmqsSddGP6qMzxVMYfuqmr FtI9BHytFOXdwtfzWNa4OK kyGZWkoHJ4EXTxbMLfL0Jd NJUvXI8ssre3WBU9AAroNM DjJmL5MMQqiUNrDFDxwKlk NXjck895VNZ0IoVuGFTccu OtgBvmnZ5kJjQlQEP0PRLf NVgzXHBhcn0= CLINICAL HISTORY (test m5hmhPYyDPCbwVM5PbYoPH code = 3356) Nro7wmh7RwtZFweZPbFQeu rZKddfHwqt99xXW4fG75OM 9nADAeHdP4EMMnudU0Jbv5 DDPmOZNnnGJaR560q1ncw3 gqgyTzuDP2bJdeNCXttzrb SuT6WNsuHLCrhzhrGQb9NY gqEJNesFP0SGNlnBYhP7Sa NAGzJP2ewrd9HTW6USanLU HpFyI4ZAHmiQGbHSJxwZew WTtuf941XPH1RzAjVQUxet XpeFpgnX9vYtUyJGVJIDQ2 am9yl13adNWyDYVrLJBuWk i1bBYuvFEbFYGhEFSwn0k4 fGMxYsQhg4jnjhplDDI3 SPECIMEN SOURCE (test k6apcUDhUKJpgCE4HtCuWR code = 3377) Clu3wki0ZtxAYfjQRuJIep pOZtqtHauz37eJM2oN68KI 8cSFRoAwX9VFIxpdT8Ikc7 BBKcFKAsiSDeV931y0xfp9 czabLgoFJ5eOizPPBiwxmt ErO9GDngLXWuofmdEPa0PV tqFOAccNZ4OGBsmUKqF2Zg ATCsVQ7urco2NSV0NComGF PsKoJ4BLVdzPClZIKjpIpa QHuoz023IDF1KuAiKNEpzu FsxWahxA2yGrVkXUJWDeSe GZ7njGHrOURvxW7mBLIvY6 h2N1ZfE0NmIPdwJ8aegF3s JIMqIGCHd0i7rHjjO19mp0 5uo2rnvV8xBIbuoO3yVMJz OANLpY5aa2fuTUjbu3OspM MsIHJhbmRvbVxwYXJ9 GROSS DESCRIPTION (test p9fvnXNkWSXjoVOfZnDeTM code = 3366) ApDTDer3whFZHgbDRqTbYi MzNcZnRuYmpcdWMxXGRlZm Mnd0sjh600bLHbi9ejWFLX vxgwtQc0p0cyZDVaZrK2hE PbFGxtA2dvlpZgiOWvJSRq RSa4gK19BREcyS8oySNdQZ mgeeWrFmX2SYrxEAMoRjZ2 BIQwnGIvXCBnZ6zeSYVfGC flUCQvGQqytMJuRXD8hXtq l1Z9nPIuyBOvpEinEeNqBo VjVQAAn2RgPQp6aPdgI9Xf XNVxOaD9gRWcUXZoPCusHB NwYQLmakR7zQ90WZyuofY1 eDApl0Dpc84fg950sM3ooZ CvYVK4NSIcYIXenOWhYGPb JOS1DNScxSMwC2r6ZmQbuJ SgC1S4KgCdvSNqC8W6JxFh hJGbF5U9SnRqlWKuTVEgbG ZbGe5fmFHzkTTroo3bjo57 OJP9f4OpxHvoUBK2MHB4Fh EwIs1imRKyDBWhASIfdMKs FTWoPB2gdRZzCXNkaK5oue xjXHBnYnJkcmhlYWRccGdi zxTzAn2oeHevRBR8TZkqR1 xlaB1gRvF6THffJ2xkqN2r LMj2URiapIJ6ZJHogO2nGG 1vmunez3ruBkIoWY3siyha v4gdErNtME0rekq4g5rzFi CeSE5vgkzga5kbNmAhUVqm RXCnkrexWVLjd0HphyerDM Ykm9IiB2ZtnDntO47uyEhx T12tAXXwkBvioE3ntGpamA 5cZjBcZnMyNFxwYXJkXHBs YWluXGYxXGZzMjBcbGFuZz EwMzNcaGljaFxmMVxkYmNo EHTuWUdvA7awIdWoNmQzKU BBLiBSZWNlaXZlZCBpbiBm u5AvTVeiylLtVQFotCJaHV dpdGggdGhlIHBhdGllbnRc V6W4uoZzIA6aDVFvGAQiQ4 UcRWLpC04mLAJopD6hNBZm TT4fLMWen7DsupPxzqmxJ3 4px50gqO1onFXfPCJfDGPi h17ckLC0myKrQjEmOIBoWR TjKK9cPCUpotWvx7O6FFAq f0B0CHStXZHasMTebfmsAH 52VQdsNB09CZrhJX1kBSYq VmGWgHCew1PdV4yyIK7roG Xez3TvnWn5vYOfLBwnIFDh mV3bcR1gCMIvMXalvdZvzU luZSBCLiBSZWNlaXZlZCBp sgNiy6LcROpcxcOkUHIrrK VkIHdpdGggdGhlIHBhdGll fsQeC0R3qaFdDU7vESMkKC DkT2AzAEIxP32gTEVnyR3t JTSzOX7sJNMtxHvvv9ytMB FxzL8qSBAcsAriGvTxxyVm M63wo3nfxRZxh9FmXeSqfY TbBSEpf8SapSSpZIVllmfn p00qiDC4xXRloMVfrpRgK0 qtUzGeocNzmOoyXDZpp35r PU58OAvoDI2hWHcdNZ5fTH ShZHJeYLUcKVT1FZVzQnJ1 IDAuMiBjbSBhbmQgbWVhc3 IeaB5kDKBtMgG4QJYbQrE8 JJNfCgItzPXfpgQpQ7ggCH rnqTXsTPFeHSQdoDHoqU4b puTiihPcdKKpxMN9QBYfiS 9mvE53gwEbaqXILX3fvAmm OKlczJ1aCCFyBJKmF8Sonn FxRNplKFIohh4ctOfyUPgf UgGvYKMky8h7lPT5gOQkpG V8tKPjrUqxDeJiKQ3mlEDv NE8zLWayJIheoeDth7FrVR 52iQEykxEosaLsAazsx1Vk vCMeXtodCEBiRVVnt02hnU I1kyHqEkQ9WMBdXZDrluGy IxS0JU2kxSfcwpLoe4Q1KG Sfg2W6GACgQR6osS7uFIqk IHNpemUgZnJvbSAwLjMgeC NkYoDwcATbLsZaI05zmW8z ET18JXmnDV4sWXwtWF9fVF NtIGFuZCBtZWFzdXJpbmcg TI7lWBahCU90SPvlJH5uOU JsMKqtXBQeJ9NqI8J8II1c VGhlIHNwZWNpbWVuIGlzIH H2Db9orNCeYBErqwF4j0Kw UFuuXVBdBjgucT3wJOubfd XeP4sGKZWpbb9= MICROSCOPIC DESCRIPTION a3luiFBdTXThrGH0DkJdYS (test code = 3371) Crb7ici2SbtQHfpKMxZVmf gYJawzRxty32rON5jD29OC 5qTKFsPgB1SKKgkoJ8Hsu0 ITKvYSPfuEHoY588c0rct4 pjzaOswLZ5lYqbZSVvyjof JfZ8JEhkVUOctweuYEp3AM maKNPkiTL5YKSwpFQtP5Kx MEWbDA3vvau2LSG1IJsdBQ ZhCiP9QURufQThRSGmsUsw ZPstg489KFK7WiIoRAHoyv TgoGqrlW4rClKxZGWUPVHe XU7sMZliH0jcO1DxKNRcYS owzJsjq6emSP9kDU8yyIvf pvIaC2eckWMqbXPfnqMlTr ggNV8sTFCzkmjzBHAkVr7s Ed2um7giptobgMUnsmNrmF 8foWHkbMP8cP7kSMHuxjAq l4BdviZzPF2lpUFjtEKeuX PlJXC3h5HiCMUxYRFoamCq EDlqM07nouR4YPgzWMYxAH 2hGD4lFIsuqTgkp5KdB7Tu zfHscDWfc82bN2UfyROdyo BiudYla3UzpjWdhuOdj9K6 pB5sYTO2DYayfi5qLEzaQO J9 [facility] CenterTISSUE [id number] 18:24:44Surgical Pathology Report Case: [id number] Authorizing Provider: Dewayne Wise MD Collected: 01/09/2022 11:31 AM Ordering Location: [facility] Endoscopy Received: 01/09/2022 03:51 PM [...] - OXYNTIC MUCOSA WITH NO PATHOLOGIC ALTERATION -NEGATIVE FOR HELICOBACTER MICROORGANISMS ON ROUTINE STAINS Signing Pathologist Direct Phone Line: [phone] signed by Evelni Wharton MD on 01/12/2022 at 6:24 [id number] r eflux disease, polyp of colonA. Polyp, colon-right/ascendingB. Polyp, [...] Helicobacter microorganisms are seen on routine stains.POC-Glucose [id number] 13:54:18 Test Item Value Reference Range Interpretation Comments POC-Glucose Meter (test 133 mg/dL 70-110 H : TE STED AT [facility] code = 1538) [address] [place] [address], [facility] 30: [employer] Cutter/Techni miguelina ID = [id number] for Rajat, Marybel Lab Interpretation (test Abnormal code = 20442-7) [facility]ucose [id number] 13:54:18 Test Item Value Reference Range Interpretation Comments POC-Glucose Meter (test 133 mg/dL 70-110 H : TE STED AT [facility] code = 1538) [address] [place] [address], [facility] 30: [employer]/Techni miguelina ID = [id number] for Rajat, Marybel Lab Interpretation (test Abnormal code = 97302-4) [facility]ucose [id number] 13:54:18 Test Item Value Reference Range Interpretation Comments POC-Glucose Meter (test 133 mg/dL 70-110 H : TE STED AT [facility] code = 1538) [address] [place] [address], [facility] 30: [employer]/Techni miguelina ID = [id number] for Rajat, Marybel Lab Interpretation (test Abnormal code = 26866-3) [facility] [id number] 13:54:18 Test Item Value Reference Range Interpretation Comments POC-Glucose Meter (test 133 mg/dL 70-110 H : TE STED AT [facility] code = 1538) [address] [place] [address], [facility] 30: Marble Cutter/Techni miguelina ID = [id number] for Rajat, Marybel Lab Interpretation (test Abnormal code = 50727-7) [facility] [id number] 13:54:18 Test Item Value Reference Range Interpretation Comments POC-Glucose Meter (test 133 mg/dL 70-110 H : TE STED AT [facility] code = 1538) [address] [facility], 770 30: Marble Cutter/Techni miguelina ID = [id number] for Marybel Earl Lab Interpretation (test Abnormal code = 99668-1) [facility] [id number] 13:54:18 Test Item Value Reference Range Interpretation Comments POC-Glucose Meter (test 133 mg/dL 70-110 H : TE STED AT [facility] code = 1538) [address] [place] [address], 770 30: Marble Cutter/Techni miguelina ID = [id number] for Marybel Earl Lab Interpretation (test Abnormal code = 61297-5) [facility] [id number] 13:54:18 Test Item Value Reference Range Interpretation Comments POC-Glucose Meter (test 133 mg/dL 70-110 H : TE STED AT [facility] code = 1538) [address] [place] [address], 770 30: Marble Cutter/Techni miguelina ID = [id number] for Marybel Earl Lab Interpretation (test Abnormal code = 77540-4) [facility]-GLUCOSE [id number] 13:54:18 Test Item Value Reference Range Interpretation Comments POC-GLUCOSE METER 133 mg/dL 70-110 H : TESTED A T [facility] 6720 (BEAKER) (test code = [facility], 1538) [address]: Marble Cutter/Techni miguelina ID = [id number] for Marybel Pina POCT-GLUCOSE [id number] 10:12:16 Test Item Value Reference Range Interpretation Comments POC-GLUCOSE METER 135 mg/dL 70-110 H : TESTED A T [facility] 6720 (BEAKER) (test code = [facility], 1538) [address]: Marble Cutter/Techni miguelina ID = [id number] for MAYELA BROWNING SARS-CoV2/RT-PCR (Asymptomatic ONLY)2022-01-09 09:03:44 Test Item Value Reference Interpretation Comments Range SARS-COV2/RT-PCR Negative Negative The SARS-Co V-2 (test code = target nucleic 22808-9) acids are not detected in thi s [...] revoked sooner. Fact Sheet for Healthcare Providers: https://www.IP Ghoster/Documents/Xp ert%20Xpress%20SAR S%20CoV-2/Fact%20S heets/302-3802%20S ARS-COV-2%20HEALTH CARE%20PROVIDERS%2 0FACT%20SHEET.pdf Fact Sheet for Healthcare Patients: https://www.IP Ghoster/Documents/Xp ert%20Xpress%20SAR S%20CoV-2/Fact%20S heets/302-3801%20S ARS-COV-2%20PATIEN T%20FACT%20SHEET.p df Lab Interpretation Normal (test code = 54060-0) [facility]2022-01-09 09:03:44 Test Item Value Reference Interpretation Comments Range SARS-COV2/RT-PCR Negative Negative The SARS-Co V-2 (test code = target nucleic 06441-9) acids are not detected in thi s [...] om SARS-CoV-2 in a nasopharyngeal swab specimen [facility] from individual s suspected of COVID-19 by [...] revoked sooner. Fact Sheet for Healthcare Providers: https://www.IP Ghoster/Documents/Xp ert%20Xpress%20SAR S%20CoV-2/Fact%20S heets/302-3802%20S ARS-COV-2%20HEALTH CARE%20PROVIDERS%2 0FACT%20SHEET.pdf Fact Sheet for Healthcare Patients: https://www.IP Ghoster/Documents/Xp ert%20Xpress%20SAR S%20CoV-2/Fact%20S heets/302-3801%20S ARS-COV-2%20PATIEN T%20FACT%20SHEET.p df Lab Interpretation Normal (test code = 99362-0) [facility]2022-01-09 09:03:44 Test Item Value Reference Interpretation Comments Range SARS-COV2/RT-PCR Negative Negative The SARS-Co V-2 (test code = target nucleic 67169-7) acids are not detected in thi s [...] revoked sooner. Fact Sheet for Healthcare Providers: https://www.IP Ghoster/Documents/Xp ert%20Xpress%20SAR S%20CoV-2/Fact%20S heets/302-3802%20S ARS-COV-2%20HEALTH CARE%20PROVIDERS%2 0FACT%20SHEET.pdf Fact Sheet for Healthcare Patients: https://www.IP Ghoster/Documents/Xp ert%20Xpress%20SAR S%20CoV-2/Fact%20S heets/302-3801%20S ARS-COV-2%20PATIEN T%20FACT%20SHEET.p df Lab Interpretation Normal (test code = 13985-0) [facility]2022-01-09 09:03:44 Test Item Value Reference Interpretation Comments Range SARS-COV2/RT-PCR Negative Negative The SARS-Co V-2 (test code = target nucleic 08041-0) acids are not detected in thi s [...] revoked sooner. Fact Sheet for Healthcare Providers: https://www.IP Ghoster/Documents/Xp ert%20Xpress%20SAR S%20CoV-2/Fact%20S heets/302-3802%20S ARS-COV-2%20HEALTH CARE%20PROVIDERS%2 0FACT%20SHEET.pdf Fact Sheet for Healthcare Patients: https://wwwDigital Marketing Solutions/Documents/Xp ert%20Xpress%20SAR S%20CoV-2/Fact%20S heets/302-3801%20S ARS-COV-2%20PATIEN T%20FACT%20SHEET.p df Lab Interpretation Normal (test code = 89631-8) [facility]2022-01-09 09:03:44 Test Item Value Reference Interpretation Comments Range SARS-COV2/RT-PCR Negative Negative The SARS-Co V-2 (test code = target nucleic 53572-1) acids are not detected in [facility] s specimen. Negat rosales results do not [...] revoked sooner. Fact Sheet for Healthcare Providers: https://www.IP Ghoster/Documents/Xp ert%20Xpress%20SAR S%20CoV-2/Fact%20S heets/302-3802%20S ARS-COV-2%20HEALTH CARE%20PROVIDERS%2 0FACT%20SHEET.pdf Fact Sheet for Healthcare Patients: https://wwwDigital Marketing Solutions/Documents/Xp ert%20Xpress%20SAR S%20CoV-2/Fact%20S heets/302-3801%20S ARS-COV-2%20PATIEN T%20FACT%20SHEET.p df Lab Interpretation Normal (test code = 73371-0) [facility]2022-01-09 09:03:44 Test Item Value Reference Interpretation Comments Range SARS-COV2/RT-PCR Negative Negative The SARS-Co V-2 (test code = target nucleic 19247-9) acids are not detected in thi s [...] revoked sooner. Fact Sheet for Healthcare Providers: https://www.IP Ghoster/Documents/Xp ert%20Xpress%20SAR S%20CoV-2/Fact%20S heets/302-3802%20S ARS-COV-2%20HEALTH CARE%20PROVIDERS%2 0FACT%20SHEET.pdf Fact Sheet for Healthcare Patients: https://www.IP Ghoster/Documents/Xp ert%20Xpress%20SAR S%20CoV-2/Fact%20S heets/302-3801%20S ARS-COV-2%20PATIEN T%20FACT%20SHEET.p df Lab Interpretation Normal (test code = 09731-1) [facility]2022-01-09 09:03:44 Test Item Value Reference Interpretation Comments Range SARS-COV2/RT-PCR Negative Negative The SARS-Co V-2 (test code = target nucleic 46999-9) acids are not detected in thi s [...] revoked sooner. Fact Sheet for Healthcare Providers: https://www.IP Ghoster/Documents/Xp ert%20Xpress%20SAR S%20CoV-2/Fact%20S heets/302-3802%20S ARS-COV-2%20HEALTH CARE%20PROVIDERS%2 0FACT%20SHEET.pdf Fact Sheet for Healthcare Patients: https://www.IP Ghoster/Documents/Xp ert%20Xpress%20SAR S%20CoV-2/Fact%20S heets/302-3801%20S ARS-COV-2%20PATIEN T%20FACT%20SHEET.p df Lab Interpretation Normal (test code = 83610-2) [facility])2022-01-09 09:03:44 Test Item Value Reference Range Interpretation Comments SARS-COV2/RT-PCR Negative Negative The SARS-Co V-2 target (test code = nucleic acids a re not 1088459) detected in thi s specimen. Negative result [...] revoked sooner. Fact Sheet for Healthcare Providers: https://www.Humacyte m/Documents/Xpert%20Xpress%20SARS%20CoV-2/Fact%20Sheets/302-3802%03CGXV-EDC-5%20 HEALTHCARE%20PROVIDERS%20FACT%20SHEET.pdf Fact Sheet for Healthcare Patients: https://wwwSlipstream/Documents/Xpert%20Xp ress%20SARS%20CoV-2/Fact%20Sheets/302-3801%77BYRZ-QEY-4%20PATIENT%20FACT%20SHEET .[id number] 14:57:00 Test Item Value Reference Range Interpretation Comments SURG (test code = SURG) RUN DATE: 08/26/20 [facility] PAGE 1 RUN TIME: 1457 Specimen Inquiry RUN USER: INTERFACE PATIENT: PEPE ACOSTA LOC: ANDI U #: [id number] AGE/SX: 55/F ROOM: RE08/23/20REG DR: Tapan Harper MD : 67 BED: DIS: STATUS: DEP SDC TLOC: SPEC #: [id number] RECD: 08/23/20 STATUS: KRISTIN [place] #: [id number] AN: 08/23/[address]: Tapan Harper MD ENTERED: 08/23/20 SP TYPE: SURG OTHR DR: Jaron Irving DO ORDERED: SURG PATH LVL 02/01 COPIES TO: Jaron Irving DO [address] [place], [place] [address] Tapan Harper MD [address] [place] [address] HISTOLOGY: TISSUE ID BLK PCS DIANE LEV [...] - R10.84; K59.00 CPT CODES CPT CODE(S): 42488M8 , , , , , , FINAL DIAGNOSIS A. Colon, right, biopsy: COLONIC MUCOSA WITH NO PATHOLOGIC DIAGNOSIS B. Colon, mid, biopsy: COLONIC MUCOSA WITH NO PATHOLOGIC DIAGNOSIS CONTINUED ON NEXT PAGE RUN DATE: 08/26/20 [facility] - LAB PAGE 2 RUN TIME: 9002 Specimen Inquiry RUN USER: INTERFACE SPEC #: [facility]:[id number] PATIENT: PEPE ACOSTA #[id number] (Continued) FINAL DIAGNOSIS (Continued) C. Colon, left, [...] all as C. ba/nr Grossing performed at [facility] Pathology, [address], [address], [place], [place] [address]. Woodworker: Leeroy Jimenes M.D. MICROSCOPIC DESCRIPTION A. Right [...] 08/26/20 1457 END OF REPORT GLUCOSE BEDSIDE [id number] 08:29:00 Test Item Value Reference Range Interpretation Comments GLUCOSE BEDSIDE TESTING (test code 156 mg/dL 70-110 H = GLUBED) BASIC METABOLIC [id number] 12:40:00 Test Item Value Reference Range Interpretation [...] CA) 9.0 MG/DL 8.5-10.1 N BASIC METABOLIC [id number] 12:37:00 Test Item Value Reference Range Interpretation [...] 9.0 MG/DL 8.5-10.1 N COVID 19 INHOUSE [id number] 12:37:00 Test Item Value Reference Range Interpretation Comments COVID 19 INHOUSE AG NEGATIVE Negative Per manu facturer, (test code = negative result s should [id number]) be treated aspr esumptive and, if inconsi [...] symptoms co nsistent with COVID-19. CBC W/AUTO [id number] 12:23:00 Test Item Value Reference Range Interpretation [...] (test code NO DIFF/SCN CRITERIA = MDIFF) [id number] 15:34:00 RUN DATE: 12/13/19 [facility] LAB PAGE 1 RUN TIME: 1535 Specimen Inquiry RUN USER: INTERFACE ---- --------PATIENT: PEPE ACOSTA LOC: GLADYS U #: [id number] AGE/SX: 54/F ROOM: RE12/11/19[facility] DR: Zacarias Rodriguez MD : 67 BED: DIS: STATUS: DEP SDC TLOC: SPEC #: [id number] RECD: 12/11/19 STATUS: KRISTIN RELang #: [id number] AN: 12/11/[address] [facility] [address]: Zacarias Rodriguez MD ENTERED: 12/11/19 SPTYPE: SURG OTHR DR: Jaron Irving DO ORDERED: SURG PATH LVL 01/31 COPIES TO: Jaron Irving DO [address] [place] [address] Zacarias Rodriguez MD [address] [place] [address] HISTOLOGY: TISSUE ID BLK PCS DIANE LEV PROCEDURE DISPOSITION ____ ___ ___ ___ GASTRIC ANTRUM A 1 3 GASTRIC ANTRUM B 1 3 PROCEDURES: SURG PATH LVL 4 (12/11/19- 1054) TISSUES: A. GASTRIC ANTRUM - GASTRIC BIOPSY B. GASTRIC ANTRUM - DISTAL GASTRIC BIOPSY CLINICAL HISTORY EPIGASTRIC PAIN -R10.13; NAUSEA -R11.0; VOMITING -R11.10 CPT CODES CPT CODE(S): 95398K1 , , , , , , FINAL DIAGNOSIS A. Stomach, biopsy: MILD CHRONIC GASTRITIS NEGATIVE FOR INTESTINAL METAPLASIA, DYSPLASIA, OR MALIGNANCY NEGATIVE FOR HELICOBACTER PYLORI ORGANISMS B.Stomach, distal, biopsy: MILD CHRONIC GASTRITIS NEGATIVE FOR INTESTINAL METAPLASIA, DYSPLASIA, OR MAL IGNANCY CONTINUED ON NEXT PAGE RUN DATE: 12/13/19 [facility] PAGE 2 RUN TIME: 1535 Specimen Inquiry RUN USER: INTERFACE SPEC #: [id number] PATIENT: PEPE ACOSTA #[id number] (Continued)-------- ---- FINAL DIAGNOSIS(Continued) NEGATIVE FOR HELICOBACTER PYLORI ORGANISMS GROSS DESCRIPTION A. Gastric biopsy. Receivedin formalin is a vazquez tissue fragment, 0.5 cm, all as A. B. Distal gastric biopsy. Received in formalin is a vazquez tissue fragment, 0.3 cm, all as B. shivam/nr Grossing performed at [facility] Pathology, [address] [place] [address], [address], [place] [address]. Woodworker: Leeroy Jimenes M.D. MICROSCOPIC DESCRIPTION A. Gastric biopsy. Sections demonstrate gastric mucosa with mild chronic inflammation. Nodysplasia or malignancy is identified. No evidence of intestinal metaplasia is seen. No features of H elicobacter pylori organisms are identified. B. Distal gastric biopsy. Sections show gastric mucosa with mild chronic inflammation. No dysplasia or malignancy is identified. No evidence of intestinal metaplasia is seen. No features of Helicobacter pylori organisms are identified. Signed SIGNATURE ON FILE Carlos Mendoza Napoleon 12/13/19 1534 END OF REPORT GLUCOSE BEDSIDE [id number] 06:17:00 Test Item Value Reference Range Interpretation Comments GLUCOSE BEDSIDE TESTING (test code 170 mg/dL 70-110 H = GLUBED) UR HCG [id number] 11:12:00 Test Item Value Reference Range Interpretation Comments UR HCG QUAL (test code = HCGQLU) NEGATIVE NEGATIVE Notes Date/Time Note Provider Source 2020-08-23 [id number] [facility] 08:52:00-00:00 [facility] [address] [place] [address] PATIENT NAME: PEPE ACOSTA ADMIT DATE: 0 ACCOUNT NO: [id number] ROOM NO: AGE: 55 REPORT TYPE: OPERATIVE REPORT SEX: F ADMITTING PHYSICIAN: ATTENDING PHYSICIAN: Tapan Harper MD OPERATION DATE: 08/23/2020 PREOPERATIVE DIAGNOSES: Coli tis, colonic ulceration surveillance ____ progress. POSTOPERATIVE DIAGNOSIS: See below. PROCEDURES: 1. Colonoscopy. 2. Segmental biopsy for colon x 3 biopsy bottle. SURGEON: Tapan Harper MD MACARONI MAKER: ANESTHESIA: Administered by department of anesth esia. INDICATION: Colitis, colonic ulceration surveill ance ____ progress. COMPLEXITY: Moderate. TOLERANCE TO ANESTHESIA: Excellent. PREP: [place] prep right 2/3, mid 2/3, left 2/3, total 04/09. Marginal preparation. Lesions cannot be ruled out. [...] The patient has been sent in excellent c ondition to postoperative recovery, from there [...] above. Dictated By: Tapan Harper MD WT: OP:L.HIM/CHRISTOPHERI/NTS Conf#: [id number]/DID#: [id number] Authenticated by Tapan Harper MD On 08/30/2020 08:30:15 AM at 0830 PATIENT NAME: PEPE ACOSTA 9314 2020-08-22 [id number] [facility] 10:59:00-00:00 [place] [address] PATIENT NAME: PEPE ACOSTA ADMIT DATE: 0 ACCOUNT NO: [id number] ROOM NO: AGE: 55 REPORT TYPE: eELECTROCARDIOGRAM SEX: F ADMITTING PHYSICIAN: ATTENDING PHYSICIAN: Tapan Harper MD Order: [id number] Test Reason : PRE OP Test Date/Time Stamp: WedAug 22 2020 10:59:16 Blood Pressure : / mmHG Vent. Rate : 066 BPM Atrial Rate : 066 BPM P-R Int : 158 ms QRS Dur : 084 ms QT Int : 428 ms P-R-T Axes : 000 183 152 degre es QTc Int : 448 ms Normal sinus rhythm Right superior axis deviation Abnormal ECG No previous ECGs available Confirmed by JOHNATHON THOMPSON MD ([id number]) on 11/05/2019 10:27:01 PM Referred By: Tapan Harper Confirmed by:JOHNATHON SANTIZO MD at 2227 PATIENT NAME: PEPE ACOSTA 9314 2019[facility]11 [facility] ([facility]) Post Anesthesia Evaluation REPORT#:[id number] REPORT STATUS: Signed DATE:12/11/19 TIME:1059 PATIENT: PEPE ACOSTA UNIT #: [id number] ROOM/BED: : 67 AGE: 54 SEX: F ATTEND: Leticia Rodriguez MD ADM AUTHOR: Gini Nieves MD * ALL edits or amendments must be made on the Opara/computer document * General Post-op: post surgery rounds Post Anesthesia Evaluation Anes. changes from pre-op eval ORM Surgeries: Surgery Date and Time: 12/11/2019 0730 Primary Procedure: ESOPHAGOGASTRODUODENOSCOPY Anesthetic: TIVA Date: 12/11/19 Level of consciousness: leila ent awake, able to answer questions, participate in this eval. Vital signs: Last Documented: Result Date Time Pulse Ox 95 12/11 945 B/P 108/70 12/11 945 O2 Delivery Room air 12/11 945 O2 Flow Rate 0.443446 12/11 945 Pulse 79 12/11 945 Resp 18 12/11 945 Temp 36.9 12/11 0812 Cardiovascular: no change, CV system stable, vit [...] MD on 12/02 at 1100 RPT #: [id number] END OF REPORT 2019-12-11 [id number] [facility] 07:49:00-00:00 [facility] [address] [place] [address] PATIENT NAME: PEPE ACOSTA ADMIT DATE: 0 ACCOUNT NO: [id number] ROOM NO: AGE: 54 REPORT TYPE: OPERATIVE REPORT SEX: F ADMITTING PHYSICIAN: ATTENDING PHYSICIAN: Zacarias Rodriguez MD OPERATION DATE: 12/11/2019 PREOPERATIVE DIAGNOSIS: POSTOPERATIVE DIAGNOSIS: PROCEDURES: 1. EGD. 2. Biopsy from gastric body and antrum. 3. Biopsy from distal esophagus. SURGEON: Tapan Harper MD MACARONI MAKER: ANESTHESIA: Anesthesia by departmental anesthesi a. INDICATION [...] fatalities, aspiration, etc. explained to the responsible libertarian, consent was obtained. She was placed in [...] has been done. PATIENT NAME: PEPE ACOSTA 1832 Gastric visualization was re ally limited due [...] By: Tapan Harper MD WT: OP:L.HIM/MEANI/NTS Conf#: [id number]/DID#: [id number] Authenticated by Tapan Harper MD On 12/14/2019 02:52:57 PM at 1453 PATIENT NAME: PEPE ACOSTA 1832 2015-10-24 CT SCAN OF THE ABDOMEN AND PELVIS WITH CONTRAST: MORRIS Tavraez 11:25:00-00:00 DISCUSSION: The study is a preoperative exam for gastric bypass surgery. Streak artifact which is a c onsequence of the patient's body touching the CT gantry somewhat limits evaluation. No older studies available for comparison. CT SCAN OF THE ABDOMEN: Axia l images through the abdomen are obtained during IV and following oral contrast administration. Previous cholecystectomy. Th e liver is mildly enlarged and of diffusely diminished attenuation. 4.4 cm lobulated cyst arising from the upper pole of left kidney. 1.5 cm irregular area of fatty attenuati on in the uncinate process o f the pancreatic head most consistent with focal fatty replacement or lipoma. No abnormalities identified in the spleen, biliary system, right kidney, or adrenal glands. No adenopathy or abnormal fl uid collections. Minimal aortic and visceral arterial calcifications. Several surgical clips in the zepeda of the gastric fundus. Stomach is incompletely distended and otherwi se suboptimally evaluated. D iverticula scattered throughout the colon. No significant findings in the visualized lung parenchyma. Degenerative changes in the spine. CT SCAN OF THE PELVIS: Axial images through the pelvis are obtained following oral and IV contrast. No adenopathy or abnormal fl uid collections. Iliac artery calcifications. Surgical clips along the medial aspect of the cecum are likely related to previous appendectomy. 2 cm left ovarian cyst. Diverti cula scattered in the descen ding and sigmoid colon. No bladder or obvious uterine abnormalities. Degenerative changes in the lumbosacral spine. Possible bilateral L5 spondylolysis. IMPRESSION: 1. Status post cholecystectomy. 2. Mild hepatomegaly with associated diffuse fat ty infiltration. 3. Colonic diverticulosis. 4. Arterial vascular calcifications. Please regan elate with risk factors. SL: 14
--- NOTE | 2023-04-13 19:51 | RAD REPORT ---
EXAM DESCRIPTION: CT - Abdomen Pelvis W Contrast - 04/13/2023 7:23 pm CLINICAL HISTORY: symptoms of fecal impaction;Abd pain COMPARISON: Abdomen Pelvis W Contrast dated 03/20/2023; Abdomen Pelvis W Contrast dated 11/16/2022 ; Abdomen Pelvis W Contrast dated 03/03/2022; Abdomen Pelvis W Contrast dated 01/24/2022 TECHNIQUE: Thin cut axial CT imaging of the abdomen and pelvis was performed following intravenous a dministration of 100 mL Isovue 300. Multiplanar reformats were generated and reviewed. All CT scans are performed using dose optimization technique as appropriate and may include automated exposure control or mA/KV adjustment according to patient size. FINDINGS: No suspicious findings in the lung bases. The liver, spleen, and pancreas show no suspicious findings. No evidence of intra or extrahepatic estefani iary ductal dilation. Sequelae of cholecystectomy and gastric bypass. Symmetric renal function is seen with no hydronephrosis or suspicious renal mass. No dilated bowel loops or bowel wall thickening. Moderate stool burden throughout the colon. No free air, free fluid or inflammatory stranding. No hernia, mass or bulky lymphadenopathy. The urinary blad teetee is without significant finding. No suspicious bony findings. IMPRESSION: No acute intra-abdominal process. Incidental findings as above.
--- NOTE | 2023-04-13 19:56 | EDPHYS ---
Physician Documentation [facility] Name: Maria De Jesus Acosta Age: 58 yrs Sex: Female : 1965 Arrival Date: 04/13/2023 Time: 17:03 Bed 16 Private MD: Trent Irving H ED Physician Juanito Santillan HPI: 04/13 17:46 This 58 yrs old Female presents to ER via Wheelchair with complaints of Rectal rn pain, constipation. 17:46 The patient presents to the emergency department with bleeding from the rectum/anus, rn that is mild, pain in the rectal area, that is moderate. Onset: The symptoms/episode began/occurred yesterday. Modifying factors: The symptoms are alleviated by nothing, The symptoms are aggravated by bowel movement, sitting position. Associate signs and symptoms: Pertinent positives: constipation, Pertinent negatives: fever. The patient has not experienced similar symptoms in the past. The patient has not recently seen a physician. Pt reports rectal pain and pressure, + constipation, no fever. Reports known "slow intestines", recently put on pain medication and has not had a bowel movement in 8 days. REports passing gas but not stool. When wipes has small amount of liquid stool and blood that is small amount and red. . Historical: - Allergies: 17:22 Doxycycline; cm10 17:22 kiwi; cm10 17:22 metoclopramide HCl; cm10 17:22 orange juice; cm10 17:22 Reglan; cm10 - PMHx: 17:22 Asthma; CHF; COPD; Crohn's; Diabetes - NIDDM; Hypertension; Nasal cancer; cm10 - PSHx: 17:22 Appendectomy; Cholecystectomy; Ligation of fallopian tube; Shoulder; cm10 - Immunization history:: Adult Immunizations unknown. - Social history:: Smoking status: unknown. - Family history:: not pertinent. - Hospitalizations: : No recent hospitalization is reported. ROS: 17:46 Constitutional: Negative for fever, chills, and weight loss, Cardiovascular: Negative rn for chest pain, palpitations, and edema, Respiratory: Negative for shortness of breath, cough, wheezing, and pleuritic chest pain, Abdomen/GI: + constipation and rectal pain/pressure MS/Extremity: Negative for injury and deformity, Skin: Negative for injury, rash, and discoloration, Neuro: Negative for headache, weakness, numbness, tingling, and seizure. Exam: 17:46 Constitutional: This is a well developed, well nourished patient who is awake, alert, rn appears uncomfortable Cardiovascular: Regular rate and rhythm. No pulse deficits. Respiratory: No increased work of breathing, no retractions or nasal flaring. Abdomen/GI: soft, no focal tenderness Skin: Warm, dry MS/ Extremity: Pulses equal, no cyanosis. Neuro: Awake and alert, GCS 15 Vital Signs: 17:20 BP 139 / 86; Pulse 90; Resp 16; Temp 97.3; Pulse Ox 99% on R/A; Weight 141.07 kg; cm10 Height 5 ft. 3 in. ; Pain 8/10; 18:20 BP 114 / 75; Pulse 81; Resp 18 S; Pulse Ox 96% on R/A; kc6 19:40 BP 141 / 75; Pulse 68; Resp 18 S; Pulse Ox 97% on R/A; ha1 17:20 Body Mass Index 55.09 (141.07 kg, 160.02 cm) cm10 17:20 Pain Scale: Adult cm10 MDM: 17:09 Patient medically screened. rn 19:55 Differential diagnosis: hemorrhoids, constipation, impaction, obstruction. Data rn reviewed: vital signs, nurses notes, lab test result(s), radiologic studies, CT scan, and as a result, I will discharge patient. Counseling: I had a detailed discussion with the patient and/or guardian regarding: the historical points, exam findings, and any diagnostic results supporting the discharge/admit diagnosis, lab results, radiology results, the need for outpatient follow up, to return to the emergency department if symptoms worsen or persist or if there are any questions or concerns that arise at home. Special discussion: I discussed with the patient/guardian in detail that at this point there is no indication for admission to the hospital. It is understood, however, that if the symptoms persist or worsen the patient needs to return immediately for re-evaluation. 04/13 17:19 Order name: CBC with Diff; Complete Time: 18:42 rn 04/13 17:19 Order name: CMP; Complete Time: 18:42 rn 04/13 17:19 Order name: Lipase; Complete Time: 18:42 rn 04/13 17:20 Order name: Protime (+inr); Complete Time: 18:42 rn 04/13 17:20 Order name: Ptt, Activated; Complete Time: 18:42 rn 04/13 17:19 Order name: CT Abd/Pelvis - IV Contrast Only; Complete Time: 19:54 rn 04/13 17:19 Order name: IV Saline Lock; Complete Time: 17:27 rn 04/13 17:19 Order name: Labs collected and sent; Complete Time: 17:27 rn Administered Medications: 17:29 Drug: NS 0.9% IV 1000 ml Route: IV; Rate: 1 bolus; Site: left antecubital; 3 17:29 Drug: Ondansetron IVP 4 mg Route: IVP; Site: left antecubital; 3 18:14 Follow up: Response: No adverse reaction; Nausea is decreased kc6 17:29 Drug: morphine IVP or IV 4 mg Route: IVP; Infused Over: 4 mins; Site: left antecubital; eh3 18:14 Follow up: Response: No adverse reaction; Pain is decreased; RASS: Alert and Calm (0) kc6 17:37 Drug: Fleet Enema DC 133 ml Route: DC; kc6 18:14 Follow up: Response: No adverse reaction kc6 20:14 Drug: Magnesium Citrate PO Liquid 300 ml Route: PO; ha1 20:22 Follow up: Response: No adverse reaction ha1 20:15 Drug: Fleet Enema DC 133 ml Route: DC; ha1 20:22 Follow up: Response: No adverse reaction ha1 Disposition Summary: 04/13/23 19:56 Discharge Ordered Location: Home rn Problem: new rn Symptoms: have improved rn Condition: Stable rn Diagnosis - Constipation, unspecified rn Followup: rn - With: Private Physician - When: As needed - Reason: Recheck today's complaints, Re-evaluation by your physician Discharge Instructions: - Discharge Summary Sheet rn - Constipation, Adult rn Forms: - Medication Reconciliation Form rn - Thank You Letter rn - Antibiotic editing intern - Prescription Opioid Use rn Prescriptions: - Miralax 17 gram Oral powder in packet - take 1 packet by ORAL route daily As needed as needed for constipation; 5 rn packet; Refills: 0, Product Selection Permitted Signatures: Dispatcher [employer] Juanito Shrap MD MD rn Hall, Erin, RN RN [facility] Niharika Archer RN RN 1 Lizzette Hobbs, RN RN kc6 Susan Pugh, RN RN cm10
--- NOTE | 2023-04-13 19:56 | ER ---
Nurse's Notes [facility] Name: Maria De Jesus Acosta Age: 58 yrs Sex: Female : 1965 Arrival Date: 04/13/2023 Time: 17:03 Bed 16 Private MD: Trent Irving H Diagnosis: Constipation, unspecified Presentation: 04/13 17:20 Chief complaint: Patient states: Pt presenting to the ED for rectal bleeding, chest cm10 pain, and dizziness. Patient reports that the rectal bleeding started to day and the blood is bright red. Patient reports that she has not had a BM in 8 days and has tried a suppository and laxatives with no relief. Patient also reports chest pain and dizziness x3 days. Coronavirus screen: Vaccine status: Patient reports being unvaccinated. Client denies travel out of the [place] in the last 14 days. At this time, the client does not indicate any symptoms associated with coronavirus-19. Ebola Screen: No symptoms or risks identified at this time. 17:20 Method Of Arrival: Wheelchair cm10 17:22 Initial Sepsis Screen: Does the patient meet any 2 criteria? No. Patient's initial cm10 sepsis screen is negative. Does the patient have a suspected source of infection? No. Patient's initial sepsis screen is negative. Risk Assessment: Do you want to hurt yourself or someone else? Patient reports no desire to harm self or others. Onset of symptoms was April 05, 2023. 17:22 Acuity: EMERALD 3 cm10 Historical: - Allergies: 17:22 Doxycycline; cm10 17:22 kiwi; cm10 17:22 metoclopramide HCl; cm10 17:22 orange juice; cm10 17:22 Reglan; cm10 - PMHx: 17:22 Asthma; CHF; COPD; Crohn's; Diabetes - NIDDM; Hypertension; Nasal cancer; cm10 - PSHx: 17:22 Appendectomy; Cholecystectomy; Ligation of fallopian tube; Shoulder; cm10 - Immunization history:: Adult Immunizations unknown. - Social history:: Smoking status: unknown. - Family history:: not pertinent. - Hospitalizations: : No recent hospitalization is reported. Screenin:31 [facility] ED Fall Risk Assessment (Adult) History of falling in the last 3 months, kc6 including since admission No falls in past 3 months (0 pts) Confusion or Disorientation No (0 pts) Intoxicated or Sedated No (0 pts) Impaired Gait No (0 pts) Mobility Assist Device Used No (0 pt) Altered Elimination No (0 pt) Score/Fall Risk Level 0 - 2 = Low Risk Oriented to surroundings, Maintained a safe environment, Educated pt \T\ family on fall prevention, incl call for assistance when getting out of bed, Assessed \T\ reinforced patient's understanding of fall precautions, Hourly rounding (assess needs \T\ fall precautionary measures) done. Abuse screen: Denies threats or abuse. Denies injuries from another. Nutritional screening: No deficits noted. Tuberculosis screening: No symptoms or risk factors identified. Assessment: 17:29 General: Appears in no apparent distress. uncomfortable, obese. Pain: Complains of pain kc6 in rectum, chest Pain does not radiate. Pain currently is 8 out of 10 on a pain scale. Pain began suddenly. Neuro: Level of Consciousness is awake, alert, obeys commands, Oriented to person, place, time, situation, Appropriate for age Reports dizziness. Cardiovascular: Heart tones S1 S2 present Capillary refill < 3 seconds Rhythm is sinus rhythm. Respiratory: Airway is patent Trachea midline Respiratory effort is even, unlabored, Respiratory pattern is regular, symmetrical. GI: Abdomen is round non-distended, Last BM was April 05, 2023. Reports constipation, rectal bleeding, nausea, Patient currently denies vomiting. : No signs and/or symptoms were reported regarding the genitourinary system. EENT: No signs and/or symptoms were reported regarding the EENT system. Derm: No signs and/or symptoms reported regarding the dermatologic system. Skin is intact, Skin is clammy, diaphoretic, Skin is normal, Skin temperature is warm. Musculoskeletal: No signs and/or symptoms reported regarding the musculoskeletal system. Circulation, motion, and sensation intact. Capillary refill < 3 seconds, Range of motion: intact in all extremities. 18:20 Reassessment: Patient appears in no apparent distress at this time. No changes from kc6 previously documented assessment. Patient and/or family updated on plan of care and expected duration. Pain level reassessed. Patient is alert, oriented x 3, equal unlabored respirations, skin warm/dry/pink. 19:40 General: Appears comfortable, Behavior is calm, cooperative. Pain: Complains of pain in ha1 abdomen Pain does not radiate. Pain currently is 7 out of 10 on a pain scale. Quality of pain is described as crampy. Neuro: Level of Consciousness is awake, alert, obeys commands, Oriented to person, place, time, situation. Cardiovascular: Patient's skin is warm and dry. Respiratory: Airway is patent Respiratory effort is even, unlabored, Respiratory pattern is regular, symmetrical. GI: Abdomen is round non-distended, obese. GI: Reports constipation, cramping, rectal bleeding, nausea, unable to pass a stool on the past 8 days. : No signs and/or symptoms were reported regarding the genitourinary system. Derm: Skin is pink, warm \T\ dry. Musculoskeletal: Circulation, motion, and sensation intact. Range of motion: intact in all extremities. Vital Signs: 17:20 BP 139 / 86; Pulse 90; Resp 16; Temp 97.3; Pulse Ox 99% on R/A; Weight 141.07 kg; cm10 Height 5 ft. 3 in. ; Pain 8/10; 18:20 BP 114 / 75; Pulse 81; Resp 18 S; Pulse Ox 96% on R/A; kc6 19:40 BP 141 / 75; Pulse 68; Resp 18 S; Pulse Ox 97% on R/A; ha1 17:20 Body Mass Index 55.09 (141.07 kg, 160.02 cm) cm10 17:20 Pain Scale: Adult cm10 ED Course: 17:06 Patient arrived in ED. rg4 17:06 Trent Irving DO is Private Physician. rg4 17:09 Juanito Santillan MD is Attending Physician. rn 17:12 Lizzette Hobbs RN is Primary Nurse. kc6 17:22 Triage completed. cm10 17:23 Arm band placed on Patient placed in an exam room, on a stretcher, on pulse oximetry. cm10 17:27 Radiology exam delayed due to lab results not completed at this time. (BUN/Creatinine) jg10 IV insertion attempt and/or patient not having appropriate IV at this time. 17:28 Inserted saline lock: 20 gauge in left antecubital area, using aseptic technique. Blood kc6 collected. Patient maintains SpO2 saturation greater than 95% on room air. 17:31 Patient has correct armband on for positive identification. Bed in low position. Call kc6 light in reach. Side rails up X2. Adult w/ patient. Client placed on continuous cardiac and pulse oximetry monitoring. NIBP monitoring applied. 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 19:24 CT Abd/Pelvis - IV Contrast Only In Process Unspecified. EDMS 20:22 No provider procedures requiring assistance completed. IV discontinued, intact, ha1 bleeding controlled, No redness/swelling at site. Pressure dressing applied. Administered Medications: 17:29 Drug: NS 0.9% IV 1000 ml Route: IV; Rate: 1 bolus; Site: left antecubital; 3 17:29 Drug: Ondansetron IVP 4 mg Route: IVP; Site: left antecubital; 3 18:14 Follow up: Response: No adverse reaction; Nausea is decreased kc6 17:29 Drug: morphine IVP or IV 4 mg Route: IVP; Infused Over: 4 mins; Site: left antecubital; 3 18:14 Follow up: Response: No adverse reaction; Pain is decreased; RASS: Alert and Calm (0) kc6 17:37 Drug: Fleet Enema NM 133 ml Route: NM; kc6 18:14 Follow up: Response: No adverse reaction kc6 20:14 Drug: Magnesium Citrate PO Liquid 300 ml Route: PO; ha1 20:22 Follow up: Response: No adverse reaction ha1 20:15 Drug: Fleet Enema NM 133 ml Route: NM; ha1 20:22 Follow up: Response: No adverse reaction ha1 Medication: 20:23 VIS not applicable for this client. ha1 Outcome: 19:56 Discharge ordered by . rn 20:22 Discharged to home via wheelchair, with family. ha1 20:22 Condition: stable 20:22 Discharge instructions given to patient, family, Instructed on discharge instructions, the need for admit, medication usage, Demonstrated understanding of instructions, follow-up care, medications, Prescriptions given X 1. 20:23 Patient left the ED. ha1 Signatures: Dispatcher [employer] EDMS Juanito Santillan MD MD rn Garcia, Rubi rg4 Monet Ovalles RN RN 3 Niharika Archer RN RN ha1 Lizzette Hobbs RN RN kc6 Kayla Short0 Keaton, Susan, RN RN cm10
[2023-04-13] MEDS ORDERED: MAGNESIUM CITRATE 300 ML BOT ONE (20:25)
[2023-04-13 20:53] VITALS: TEMP 97.3
[2023-04-13 20:55] VITALS: BP 141/75; O2SAT 97
== END 2023-04-13 20:23 | disposition home or self-care (01) ==
LOC: ER 17:03
DX: K59.00 Constipation, unspecified (principal); I10 Essential (primary) hypertension; Z88.1 Allergy status to other antibiotic agents; Z88.8 Allergy status to other drugs, medicaments and biological substances; Z91.018 Allergy to other foods
CPT/HCPCS: 85025; 36415; 85610; 85730; 83690; 80053; 74177; 96375; 96374; 99285; Q9967; J2405; J7030

== ENCOUNTER 2023-05-18 13:24 | Emergency (ER) | payer OTHER ==
--- OUTSIDE RECORDS SUMMARY | 2023-05-18 13:38 | XMS REPORT | Clinical Summary ---
:1965 Author Organization [facility] MD Ruelas [facility] Address [address] [place] [address] Care Team Providers Name Role Phone Bina Obando MD Unavailable Kenya Agarwal MD Primary Care Provider Trent Irving MD Unavailable Randall Sheriff MD Unavailable Vignesh Waddell MD Unavailable Naa Miller MD [facility] Rafael Rosas MD Unavailable [...] to her allergies f ollowing a procedure Metoclopramide Hcl Other (See 10/16/2022 Comments) [place] Juice Nausea And Low 04/18/2021 Vomiting, GI [...] Active (Easy Comfort Pen insulin 4 times [place]) 31 gauge x a day 03/16" ndleIndications: [...] Chronic pain hours as needed for congestion. oxyCODONE-acetaminophen Take 1 tablet by 60 tablet 0 3 Active (Percocet) 5 mg-325 mg mouth 2 (two) per tabletIndications: times a day as Cancer associated pain needed for severe pain. Additional Information Patient not taking. Reason: No longer taking (no refills; appt with ordering prescriber next week), Informant: Self, Reported on 04/22/2023 cefPODoxime (VANTIN) 200 Take 1 tablet 0 03/14/2023 Active mg tablet (200 mg) by mouth twice daily. apixaban (Eliquis) 5 mg Take 1 tablet (5 84 tablet 0 3 Active tabletIndications: Acute mg) by mouth thrombosis of right every 12 axillary vein, Bilateral (twelve) hours. acute thrombosis of basilic veins, Thrombosis of left cephalic vein, watermelon inspector use of anticoagulant gabapentin (NEURONTIN) TAKE 1 90 tablet 0 04/09/2023 Active 800 mg TABLET(800 MG) tabletIndications: BY MOUTH EVERY 8 Chronic pain HOURS promethazine-dextrometho TAKE 5 ML BY 0 03/30/2023 Active rphan (PROMETHAZINE-DM) MOUTH EVERY 6 6.25-15 mg/5 mL syrup HOURS NEEDED FOR COUGH benzonatate (TESSALON) 0 03/26/2023 Active 100 mg capsule spironolactone TAKE 1 TABLET BY 0 03/27/2023 Active (ALDACTONE) 25 mg tablet MOUTH EVERY DAY oxyCODONE-acetaminophen 0 03/20/2023 Active (PERCOCET) 2.5-325 mg per tablet predniSONE (DELTASONE) TWICE DAILY 0 03/26/2023 Active 10 mg tablet metoprolol succinate TAKE 1 TABLET BY 0 02/24/2023 Active (TOPROL XL) 100 mg 24 hr MOUTH TWICE tablet DAILY hydrocortisone (CORTEF) Take 2 tablets 90 tablet 1 05/11/2023 Active 10 mg tabletIndications: (20 mg) by mouth Abnormal cortisol daily with breakfast AND 1 tablet (10 mg) daily with dinner. allopurinol (ZYLOPRIM) TAKE 1 TABLET BY 0 09/01/202201/18 Discontinued 300 mg tablet MOUTH TWICE (Sto p Taking at DAILY Discharge) cloNIDine HCl (CATAPRES) TAKE 1 TABLET BY 0 11/09/1901/18 Discontinued 0.2 mg tablet MOUTH THREE (Sto p Taking at TIMES DAILY Discharg e) cetirizine (ZyrTEC) 10 TAKE 1 TABLET BY 0 10/29/202201/12 Discontinued mg tablet MOUTH ONCE DAILY (Er ror) NEEDED FOR ALLERGIES colchicine (COLCRYS) 0.6 TAKE 1 TABLET BY 0 09/21/2001/18 Discontinued mg tablet MOUTH DAILY (Stop Ta paige at Discharge) diclofenac sodium APPLY TOPICALLY 0 10/21/2022 04/03 Discontinued (Voltaren) 1 % gel TO THE AFFECTED (Stop Taking at AREA THREE TIMES Dis charge) DAILY dicyclomine (BENTYL) 10 TAKE 1 CAPSULE 0 10/12/202201/18 Discontinued mg capsule BY MOUTH EVERY (S top Taking at HOURS Discharge) gabapentin (NEURONTIN) TAKE 1 TABLET BY 0 10/21/202212/15 Discontinued 600 mg tablet MOUTH IN THE (St op Taking at MORNING AND AT Disch arge) NOON AND IN THE EVENING hydrALAZINE (APRESOLINE) TAKE 1 TABLET BY 0 10/01/2012/15 Discontinued 100 mg tablet MOUTH (Sto p Taking at TIMES DAILY Discharg e) hydroCHLOROthiazide 1 capsule (12.5 0 11/09/2022 Discontinued (MICROZIDE) 12.5 mg mg) every capsule morning. HYDROcodone-acetaminophe TAKE 1 TABLET BY 0 10/21/2012/15 Discontinued n (NORCO) 7.5 mg-325 mg MOUTH EVERY 023 (Stop Taking at per tablet HOURS NEEDED Dis charge) FOR PAIN OR CHRONIC PAIN hydrocortisone 1 % crpe APPLY TWICE 0 09/10/2022 Discontinued DAILY IN AND (Error) AROUND THE RECTUM AFTER SITZ BATH hydrocortisone UNWRAP AND 0 11/06/202201/12 Dis continued (ANUSOL-HC) 25 mg INSERT ONE (1) (Error) suppository SUPPOSITORY IN THE RECTUM TWICE A DAY. HumuLIN 70/30 U-100 0 11/16/2022 02/14 Discontinued Insulin 100 unit/mL /2022 (Stop Taking at (70-30) injection Di scharge) Victoza 2-Ze 0.6 mg/0.1 ADMINISTER 1.8 0 10/01/202212/15 Discontinued mL (18 mg/3 mL) pnij MG UNDER THE /2022 (Reorder) injection SKIN EVERY DAY lisinopril TAKE 1/2 TABLET 0 10/01/202212/15 Di scontinued (PRINIVIL,ZESTRIL) 40 mg BY MOUTH TWICE (Stop Taking at tablet DAILY Discharge) lubiprostone (AMITIZA) TAKE 1 CAPSULE 0 03/31/2022 0 01/12 Discontinued 24 MCG capsule BY MOUTH TWICE (Error) DAILY metFORMIN (GLUCOPHAGE) TAKE 1 TABLET BY 0 09/21/202212/15 Discontinued 1000 mg tablet MOUTH IN THE /2022 (S top Taking at MORNING AND IN Disch arge) THE EVENING WITH MEALS metoprolol tartrate TAKE 1 TABLET BY 0 11/03/2022 Discontinued (LOPRESSOR) 100 mg MOUTH TWICE (Reorder) tablet DAILY nitroglycerin PLACE 1 TABLET 0 09/18/202201/12 Discontinued (NITROSTAT) 0.4 mg SL UNDER THE TONGUE / 2022 (Error) tablet EVERY 5 MINUTES FOR CHEST PAIN. BD Devorah 2nd Gen Pen USE DIRECTED. 0 10/05/2022 Discontinued Needle 32 gauge x 532" (Reorder) ndle rizatriptan (MAXALT-CHASSIS WIRER) 0 08/25/202212/30 4 Discontinued 5 mg disintegrating (Error) tablet spironolactone TAKE 1 TABLET BY 0 10/19/202212/15 Discontinued (ALDACTONE) 25 mg tablet MOUTH EVERY DAY /2022 (Stop Taking at Discharge) sucralfate (CARAFATE) 1 TAKE 1 TABLET BY 0 12/15 Discontinued g tablet MOUTH TWICE (Stop Ta paige at DAILY Discharge) insulin syringe-needle USE TWICE DAILY 0 10/01/202212/15 Discontinued U-100 1 mL 31 gauge x WITH MEALS. /2022 (Stop Taking at 16 syrg Discharge) triamcinolone (KENALOG) APPLY TOPICALLY 0 08/28/202201/12 Discontinued 0.1% cream TO THE AFFECTED (Er ror) AREA TWICE DAILY BD Insulin Syringe U-500 USE 1 SYRINGE 0 03/03/2012/15 Discontinued 1/2 mL 31 gauge x 15/64" DIRECTED TWICE (Stop Taking at syrg DAILY WITH MEALS Dis charge) ondansetron (ZOFRAN-ODT) Dissolve 1 30 tablet 0 11/26/2022 Discontinued 8 mg disintegrating tablet (8 mg) on (Reorder) tabletIndications: the tongue every Adenocarcinoma of 8 (eight) hours nasopharynx as needed for nausea. HYDROmorphone (DILAUDID) Take 1 tablet (2 60 tablet 0 12/02/1912/15 Discontinued 2 mg tabletIndications: mg) by mouth (Stop Taking at Adenocarcinoma of every 4 (four) Discharge) nasopharynx hours as needed (cancer pain). dexamethasone (DECADRON) Take 1 tablet (2 60 tablet 0 12/05/1901/12 Discontinued 2 mg tabletIndications: mg) by mouth (Error) Adenocarcinoma of twice daily. nasopharynx insulin regular hum Inject 110 to 24 mL 3 12/15/202212/15 Discontinued U-500 conc (HumuLIN R 160 Units under /2 023 (Reorder) U-500, Conc, Kwikpen) the skin 3 500 unit/mL (3 mL) (three) times a insulin penIndications: day before Type 2 diabetes mellitus meals. without complication BD Devorah 2nd Gen Pen Inject 1 Device 100 each 3 12/15/2022 Discontinued Needle 32 gauge x 5/32" under the skin (Stop Taking at ndleIndications: Type 2 (three) times a Discharge) diabetes mellitus day before without complication meals. gabapentin (NEURONTIN) Take 1 tablet 90 tablet 0 12/15/2022 Discontinued 600 mg (600 mg) by (Stop Ta paige at tabletIndications: mouth every 8 Discharge) Headache, not otherwise (eight) hours. specified celecoxib (CeleBREX) 200 Take 1 capsule 30 capsule 0 3 12/30 Discontinued mg capsuleIndications: (200 mg) by (Therapy Headache, not otherwise mouth daily. completed) specified oxyCODONE-acetaminophen Take 1 tablet by 90 tablet 0 3 01/01 Discontinued (Percocet) 5 mg-325 mg mouth every (Reorder) per tabletIndications: (four) hours as Neoplasm related pain needed for (acute) (chronic) moderate pain. metoprolol tartrate Take 1 tablet 60 tablet 0 12/15/202201/18 Discontinued (LOPRESSOR) 50 mg (50 mg) by mouth /2022 (Reorder) tabletIndications: twice daily for Hypertension 30 days. fluoride, sodium, Apply to teeth 56 g 0 12/16/202201/12 Discontinued (DENTAGEL) 1.1% dental daily for (Error) gelIndications: Adenoid days. cystic carcinoma of nasopharynx, NOS insulin regular hum Inject 110-160 24 mL 3 12/15/202212/31 0 Discontinued U-500 conc (HumuLIN R Units under the / 023 (Reorder) U-500, Conc, Kwikpen) skin 3 (three) 500 unit/mL (3 mL) times a day insulin penIndications: before meals. Type 2 diabetes mellitus without complication pantoprazole (Protonix) Take 1 tablet 30 tablet 0 12/15/2022 0 12/15 Discontinued 40 mg EC (40 mg) by mouth /2022 (St op Taking at tabletIndications: every morning Discharge) Gastroesophageal reflux before breakfast disease for 30 days. ondansetron (ZOFRAN) 8 Take 1 tablet (8 30 tablet 3 12/17/202202/04 Discontinued mg tabletIndications: mg) by mouth /2022 (Reorder) Adenoid cystic carcinoma every 8 (eight) of nasopharynx, NOS hours as needed for nausea or vomiting. ondansetron (ZOFRAN-ODT) Dissolve 1 60 tablet 1 12/18/2022 Discontinued 8 mg disintegrating tablet (8 mg) tabletIndications: the tongue every Adenocarcinoma of 8 (eight) hours nasopharynx as needed for nausea. sodium chloride (NS) Inject 10 mL (1 30 each 6 12/23/2022 Discontinued 0.9% flush syringe 10 syringe) (Stop Taking at mLIndications: Adenoid each lumen of Discharge) cystic carcinoma of central venous nasopharynx, NOS catheter daily as directed. cyclobenzaprine Take 1 tablet 60 tablet 0 12/30/202201/18 Discontinued (FLEXERIL) 10 mg (10 mg) by mouth (Reorder) tabletIndications: 3 (three) times Cancer associated pain a day as needed for muscle spasms (neck pain). pseudoephedrine Take 1 tablet 60 tablet 0 12/30/202201/12 Discontinued (Sudafed) 30 mg (30 mg) by mouth (Error) tabletIndications: 2 (two) times a Cancer associated pain day as needed for congestion. oxyCODONE-acetaminophen Take 1 tablet by 45 tablet 0 3 01/12 Discontinued (Percocet) 5 mg-325 mg mouth every (Error) per tabletIndications: (four) hours as Neoplasm related pain needed for (acute) (chronic) moderate pain. lidocaine (XYLOCAINE) 20 Swish and 100 mL 3 01/04/202312/31 0 Discontinued mg/mL (2%) viscous swallow 5 mL (Stop Taking at solutionIndications: every 6 (six) Discharge) Adenocarcinoma of hours as needed nasopharynx (painful swallowing). hydrALAZINE (APRESOLINE) Take 1 tablet 0 0 01/18 Discontinued 100 mg tablet (100 mg) by (Sto p Taking at mouth 3 (three) Disc harge) times a day. metFORMIN (GLUCOPHAGE) Take 1 tablet 0 Discontinued 1000 mg tablet (1,000 mg) by ( Stop Taking at mouth 2 (two) Discha rge) times a day with meals. spironolactone Take 1 tablet 0 01/18 D iscontinued (ALDACTONE) 25 mg tablet (25 mg) by mouth (Stop Taking at daily. Discharge) oxyCODONE-acetaminophen Take 1 tablet by 0 3 01/18 Discontinued (Percocet) 5 mg-325 mg mouth every (Reorder) per tabletIndications: (four) hours as Neoplasm related pain needed for (acute) (chronic) moderate pain. oxyCODONE-acetaminophen Take 1 tablet by 60 tablet 0 3 02/01 Discontinued (Percocet) 5 mg-325 mg mouth every (Stop Taking at per tabletIndications: (six) hours as Discharge) Neoplasm related pain needed for (acute) (chronic) severe pain. cyclobenzaprine Take 1 tablet 60 tablet 0 01/18/202301/20 Discontinued (FLEXERIL) 10 mg (10 mg) by mouth /2022 (Therapy tabletIndications: 3 (three) times completed) Cancer associated pain a day as needed for muscle spasms (neck pain). xyloxylin oral Swish and 480 mL 1 01/18/202301/18 Disc ontinued suspension swallow 10 mL (Reor teetee) (AMB-CMPD)Indications: every 6 (six) Ulcerative oral hours as needed mucositis due to for mouth pain. antineoplastic therapy sucralfate (CARAFATE) Take 10 mL 420 mL 0 01/18/202301/18 Discontinued 100 mg/mL (1,000 mg) by (Reord er) suspensionIndications: mouth 4 (four) Ulcerative oral times a day. mucositis due to antineoplastic therapy metoprolol tartrate Take 1 tablet 60 tablet 0 01/18/202301/18 Discontinued (LOPRESSOR) 50 mg (50 mg) by mouth (Reorder) tabletIndications: twice daily for Hypertension 30 days. insulin regular hum Inject 50 to 125 24 mL 3 01/18/2023 04 / Discontinued U-500 conc (HumuLIN R Units under the /2 023 (Reorder) U-500, Conc, Kwikpen) skin 3 (three) 500 unit/mL (3 mL) times a day, insulin penIndications: before meals. Type 2 diabetes mellitus Inject as without complication instructed at discharge. pen needle, diabetic Use as directed. 10 each 0 01/18/2023 0 4/02 Discontinued needle (Reorder) sucralfate (CARAFATE) Take 10 mL 420 mL 0 01/18/202301/18 Discontinued 100 mg/mL (1,000 mg) by (Reord er) suspensionIndications: mouth 4 (four) Ulcerative oral times a day. mucositis due to antineoplastic therapy xyloxylin oral Swish and 480 mL 1 01/18/202301/18 Disc ontinued suspension swallow 10 mL (Reor teetee) (AMB-CMPD)Indications: every 6 (six) Ulcerative oral hours as needed mucositis due to for mouth pain. antineoplastic therapy metoprolol tartrate Take 1 tablet 60 tablet 0 01/18/202302/17 (LOPRESSOR) 50 mg (50 mg) by mouth tabletIndications: twice daily for Hypertension 30 days. sucralfate (CARAFATE) Take 10 mL 420 mL 0 01/18/202302/16 Discontinued 100 mg/mL (1,000 mg) by (Stop Taking at suspensionIndications: mouth 4 (four) Discharge) Ulcerative oral times a day. mucositis due to antineoplastic therapy xyloxylin oral Swish and 480 mL 1 01/18/202301/20 Disc ontinued suspension swallow 10 mL by (R eorder) (AMB-CMPD)Indications: mouth every 6 Ulcerative oral (six) hours as mucositis due to needed for mouth antineoplastic therapy pain. UNABLE TO FIND Compound Drug 0 01/18/202302/16 Discontinued (Stop Taki ng at Discharge) xyloxylin oral Swish and 480 mL 1 01/20/202302/16 Disc ontinued suspension swallow 10 mL (St op Taking at (AMB-CMPD)Indications: (two) times a Discharge) Ulcerative oral day as needed mucositis due to for mouth pain. antineoplastic therapy insulin regular (HumuLIN Inject 5 units 10 mL 1 01/31/202302/16 Discontinued R Regular U-100 Insuln) to 25 units with (Stop Taking at 100 units/mL meals as needed D ischarge) injectionIndications: for blood sugar Type 2 diabetes mellitus greater than 150 with hyperglycemia mg/dL insulin regular hum Inject 50 to 125 24 mL 3 01/31/2023 Discontinued U-500 conc (HumuLIN R Units under the /2 023 (Reorder) U-500, Conc, Kwikpen) skin 3 (three) 500 unit/mL (3 mL) times a day, insulin penIndications: before meals. Type 2 diabetes mellitus Inject as without complication instructed at discharge. pen needle, diabetic Use as directed. 10 each 0 01/31/2023 0 02/16 Discontinued needle (Stop Taki ng at Discharge) insulin syringe-needle USE DIRECTED 360 each 3 02/02/202302/16 Discontinued U-100 1 mL 31 gauge x FOUR TIMES DAILY 2022 (Stop Taking at 03/16 syrgIndications: Discharge) Type 2 diabetes mellitus with hyperglycemia gabapentin (NEURONTIN) Take 1 tablet 90 tablet 0 02/01/2023 Discontinued 800 mg (800 mg) by tabletIndications: mouth every 8 Chronic pain (eight) hours. oxyCODONE-acetaminophen Take 1 tablet by 30 tablet 0 3 03/04 Discontinued (PERCOCET) 7.5-325 mg mouth every 3 (Dose per tabletIndications: (six) hours as adjustment) Chronic pain needed for severe pain. hydrALAZINE (APRESOLINE) Take 1 tablet 0 0 02/16 Discontinued 100 mg (100 mg) by (Stop Ta paige at tabletIndications: mouth 3 (three) Discharge) hypertension times a day. hydroCHLOROthiazide Take 1 capsule 0 02/16 Discontinued (MICROZIDE) 12.5 mg (12.5 mg) by (Stop Taking at capsule mouth every Discharg e) morning. cloNIDine HCl (CATAPRES) Take 1 tablet 0 0 02/16 Discontinued 0.2 mg tablet (0.2 mg) by (Sto p Taking at mouth 3 (three) Disc harge) times a day as needed. oxyCODONE-acetaminophen Take 1 tablet by 45 tablet 0 3 02/16 Discontinued (Percocet) 7.5-325 mg mouth every 3 (Stop Taking at per tabletIndications: (six) hours as Discharge) Neoplasm related pain needed for (acute) (chronic) severe pain for up to 45 days. enoxaparin (LOVENOX) 120 Inject 0.8 mL 60 each 0 02/12/202303/31 Discontinued mg/0.8 mL prefilled (120 mg) under syringeIndications: Deep the skin every venous thrombosis 12 (twelve) <Unspecified side> hours. levoFLOXacin (LEVAQUIN) Take 1 tablet 3 tablet 0 02/16/2023 0 02/19 750 mg (750 mg) by tabletIndications: mouth daily for Adenoid cystic carcinoma 3 days. of nasopharynx, NOS, Deep venous thrombosis <Unspecified side> gabapentin (NEURONTIN) TAKE 1 90 tablet 0 03/02/202304/09 Discontinued 800 mg TABLET(800 MG) (Reor teetee) tabletIndications: BY MOUTH EVERY 8 Chronic pain HOURS metFORMIN (GLUCOPHAGE) TAKE 1 TABLET BY 0 03/10/202304/24 Discontinued 1000 mg tablet MOUTH IN THE (T herapy MORNING AND IN compl eted) THE EVENING WITH MEALS Active Problems Problem Noted Date [facility] use of anticoagulant 03/31/2023 Acute thrombosis of [...] to antineoplastic therapy 01/11/2023 Swallowing painful 01/11/2023 watermelon inspector current use of systemic steroid 12/10/2022 Current use of insulin 12/10/2022 Adverse effect of glucocorticoids and synthetic analog ues 12/10/2022 Headache 12/09/2022 Adenoid cystic carcinoma of nasopharynx, 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: Stage WINDY (cT4, cN0, cM0) - Unsigned Essential hypertension 02/15/2020 Gastroesophageal reflux disease 07/28/2018 Other hyperlipidemia 07/28/2018 Severe protein-calorie malnutrition Encounters Date Type Specialty Care Team Description 05/11/2023 Telephone Endocrinology Marily Garcia APRN 05/02/2023 Telephone Endocrinology No Andrade MD 04/22/2023 Follow-Up Thoracic Medicine Duy Rosario MD carcinoma of nasopharynx, NO S 04/22/2023 Follow-Up Radiation Oncology Winter Luu, MD carcinoma of nasopharynx, NO S 04/22/2023 Ancillary Procedure Radiology [place] carcinoma of nasopharynx, NO S 04/22/2023 Travel 04/09/2023 Refill Pain Medicine Martha Chronic pain Kyung, JCARLOS 04/08/2023 Refill Pain Medicine Evan Chronic pain Miguel Fernandez MD 03/31/2023 Office Visit Hematology Oo, MD Rosana [facility] use of anticoagulant (Primary Dx); Adenoid cystic carcinoma of nasopharynx, NOS; Deep venous thr ombosis <Unspecified side>; Acute thrombosi s of right axillary vein; Bilateral acute thrombosis of basilic veins; Thrombosis of l eft cephalic vein 03/31/2023 Travel 03/26/2023 Telephone Pain Medicine Viry Gaitan RN 03/23/2023 Telephone Radiation Oncology Lindy Montenegro PA 03/23/2023 Orders Only Radiation Oncology Lindy Montenegro PA 03/19/2023 Telemedicine Endocrinology Angela Lopes, Type 2 diabet es DESCRIPTIVE CATALOG LIBRARIAN mellitus withou t complication (P rimary Dx) 03/18/2023 Telephone Oncology Vaibhav Rosario MD 03/16/2023 Orders Only Oncology Hdez, Adenoid cystic [place]orena carcinoma of Kayla, DESCRIPTIVE CATALOG LIBRARIAN nasopharynx, 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) 03/12/2023 Nutrition Nutrition Kenya Agarwal MD Martin, Cathy A, ADAM 03/11/2023 Infusion Infusion Services Lemuel, Adenoid cy stic [place] carcinoma of Kayla, DESCRIPTIVE CATALOG LIBRARIAN nasopharynx, 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) 03/11/2023 Follow-Up Oncology Lemuel, Adenoid cystic [place] carcinoma of Kayla, DESCRIPTIVE CATALOG LIBRARIAN nasopharynx, 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) 03/11/2023 Travel 03/09/2023 Telephone Oncology Lorena Hdez, DESCRIPTIVE CATALOG LIBRARIAN 03/04/2023 Nutrition Nutrition Kenya Agarwal MD Martin, Cathy A, RD 03/04/2023 Orders Only Oncology Lorena Hdez, DESCRIPTIVE CATALOG LIBRARIAN 03/04/2023 Telephone Thoracic Medicine Tita Kwon RN 03/04/2023 Orders Only Pain Medicine Evan, Cancer associa kaylie Fernandez MD pain (Primary Dx) 03/03/2023 Follow-Up Thoracic Medicine Kenny Monteiroe, Adenoid cy stic carcinoma of nasopharynx, NOS; MD Vaibhav Deep venous thr ombosis <Unspecified side> 03/03/2023 Refill Pain Medicine Tyrell, Chronic pain Anumol, DESCRIPTIVE CATALOG LIBRARIAN 03/03/2023 Travel 03/02/2023 Refill Pain Medicine Tyrell, Chronic pain Anumol, DESCRIPTIVE CATALOG LIBRARIAN 02/26/2023 Telemedicine Pain Medicine Evan, Chronic pain ( Primary Miguel Fernandez MD Dx) 02/25/2023 Nutrition Nutrition Kenya Agarwal MD Martin, Cathy A, RD 02/19/2023 Telephone Radiation Oncology Anthony Lancaster RN 02/18/2023 Nutrition Nutrition Kenya Agarwal MD Martin, Cathy A, RD 02/12/2023 Clinical Support Radiation Oncology Winter Luu MD 02/12/2023 Hospital Encounter Radiation Oncology Kenya Agarwal MD 02/12/2023 Documentation Radiation Oncology [place] 02/12/2023 Orders Only Radiation Oncology Winter Luu Adenocarc inoma of nasopharynx (Primary Dx); MD Gini Adenoid cystic carcinoma of nasopharynx, NOS 02/12/2023 Orders Only Pain Medicine Bruce, Neoplasm relat ed pain (acute) (chronic) (Primary Dx); MD Elvis Chronic pain 02/10/2023 Orders Only Speech Pathology Charla Solis Oropharynge jessica Eckert, [facility] dysphagia (Prim cristina Dx) 02/08/2023 Hospital Encounter [...] complic ation; Soria, Son Shortness of br eath V., MD Cortes-Dellan, Derrick, MD Felipe, MD Phyllis See Michelle, MD 02/05/2023 Telephone [...] Dx) 02/03/2023 Orders Only Oncology Lorena Hdez, DESCRIPTIVE CATALOG LIBRARIAN 02/03/2023 Travel 02/02/2023 Travel 01/31/2023 Refill Internal Medicine Rohan, Type 2 juliet ryan Peñaloza, mellitus with DESCRIPTIVE CATALOG LIBRARIAN hyperglycemia (Primary Dx) 01/28/2023 Telephone Radiation Oncology Felisa Castillo RN 01/28/2023 Orders Only Oncology Lorena Hdez, DESCRIPTIVE CATALOG LIBRARIAN 01/26/2023 Hospital Encounter Uro/Ortho/GI Wattana, Chronic p [...] Kenya Agarwal MD Martin, Cathy A, ADAM 01/22/2023 Travel 01/21/2023 Infusion Infusion Services Lemuel, Adenoid cy rain Carrillo carcinoma of Kayla, DESCRIPTIVE CATALOG LIBRARIAN nasopharynx, 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) 01/21/2023 Follow-Up Thoracic Medicine Kenny Power Adenoid cy rain Esposito MD carcinoma of nasopharynx, 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) 01/21/2023 Travel 01/20/2023 Consult Pain Medicine Williams, [facility]DC cur rent use of opiate analgesic (Primary Dx); Rogerio, Adenocarcinoma of nasopharynx; 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; Neoplasm relate d pain (acute) (chronic) 01/20/2023 Documentation Pain Medicine Randall Fererr 01/20/2023 Travel 01/19/2023 Clinical Support Radiation Oncology Winter Luu MD 01/19/2023 Travel 01/14/2023 Orders Only Speech Pathology Gorman, Dysphagia, [place] oropharyngeal p hasjessica Cervantes, (Primary Dx) [facility] 01/12/2023 Refill Internal Medicine Orlin Hypertensi on MD Karen 01/11/2023 Hospital Encounter [...] of glucocorticoids and synthetic analogues, subsequent encounter; [facility] curre nt use of systemic steroid; Hyperlipidemia, not otherwise specified; Gastroesophagea l reflux disease; Essential hyper tension; Mucositis (ulce rative) due to antineoplastic therapy; Neoplasm relate d pain (acute) (chronic); Hypertension; 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; Insulin resista nce 01/11/2023 Travel 01/11/2023 Telephone Radiation Oncology Felisa Castillo, RN 01/08/2023 Nutrition Nutrition Kenya Agarwal MD Martin, Cathy A, RD 01/08/2023 Travel 01/07/2023 Infusion Infusion Services Hdez, Adenoid cy stic [place]ore[place] carcinoma of Kayla, DESCRIPTIVE CATALOG LIBRARIAN nasopharynx, 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) 01/07/2023 Follow-Up Oncology Lemuel, Adenoid cystic [place] carcinoma of Kayla, DESCRIPTIVE CATALOG LIBRARIAN nasopharynx, 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) 01/07/2023 Travel 01/06/2023 Infusion Infusion Services Lemuel, Adenoid cy stic [place] carcinoma of Kayla, DESCRIPTIVE CATALOG LIBRARIAN nasopharynx, 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) 01/06/2023 Travel 01/05/2023 Travel 01/04/2023 Clinical Support Radiation Oncology Winter Luu carcinoma of MD Gini nasopharynx (Pr imary Dx) 01/04/2023 Infusion Infusion Services Lemuel, Adenoid cy stic [place] carcinoma of Kayla, DESCRIPTIVE CATALOG LIBRARIAN nasopharynx, 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) 01/04/2023 Travel 01/01/2023 Infusion Infusion Services Lemuel Adenoid cy stic [place] carcinoma of Kayla, DESCRIPTIVE CATALOG LIBRARIAN nasopharynx, 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) 01/01/2023 Follow-Up [...] missed RN treatment 12/31/2022 Orders Only Oncology Hdez, Adenoid cystic [place] carcinoma of Kayla, DESCRIPTIVE CATALOG LIBRARIAN nasopharynx, 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) 12/30/2022 Hospital [...] Adenoid cy stic [place]ore[place] carcinoma of Kayla, DESCRIPTIVE CATALOG LIBRARIAN nasopharynx, 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) 12/24/2022 Follow-Up Thoracic Medicine Duy Rosario MD carcinoma of nasopharynx, NO S 12/24/2022 [...] Encounter Dental Oncology Hofstede, Adenoi d cystic Otiila, DDS carcinoma of nasopharynx, NO S 12/23/2022 Documentation Radiation Oncology Winter Luu MD 12/23/2022 Telephone Thoracic Medicine Kenny Power, Results (T est note ) MD Vaibhav 12/23/2022 Telephone Radiation Oncology Doyle, Results ( Test Tita Mayorga, note-per Daniela RN request) 12/23/2022 Travel 12/23/2022 Orders Only Oncology Hdez, Adenoid cystic Lorena carcinoma of Kayla, DESCRIPTIVE CATALOG LIBRARIAN nasopharynx, 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) 12/18/2022 Orders Only Radiation Oncology [place], Lindy BALJINDER Sotelo 12/18/2022 Orders Only Radiation Oncology Lan, Adenocarc inoma of Lindy nasopharynx BALJINDER Sotelo 12/17/2022 Clinical Support Radiation Oncology Kenya Agarwal MD Lawrence, Holly D, RN 12/17/2022 Documentation Radiation Oncology Winter Luu MD 12/17/2022 Documentation Radiation Oncology Winter Luu MD 12/17/2022 Documentation Radiation Oncology Winter Luu MD 12/17/2022 Orders Only Oncology Hdez, Adenoid cystic Lorena carcinoma of Kayla, DESCRIPTIVE CATALOG LIBRARIAN nasopharynx, 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) 12/17/2022 Travel 12/17/2022 Orders Only Radiation Oncology Winter Luu MD 12/16/2022 Orders Only Radiation Oncology Winter Luu Adenocarc inoma of MD Gini nasopharynx (Pr imary Dx) 12/16/2022 Telephone Radiation Oncology Felisa Castillo, RN 12/16/2022 Telephone Endocrinology Rosmery Dickinson RD 12/15/2022 Hospital Encounter Dental Oncology Kenya Agarwal MD observation for other suspected disea se ruled out 12/15/2022 Refill Radiation Oncology Lan, Adenocarc inoma of Lindy nasopharynx BALJINDER Sotelo 12/15/2022 Orders Only Pain Medicine Williams, Neoplasm rela kaylie pain Rogerio (acute) (chron ic) (Primary Dx) 12/15/2022 Orders Only Pain Medicine Rogerio Kramer MD 12/15/2022 Orders Only Ophthalmology Reggiemandcarlos, Sixth (abducen t) Maya, OD nerve palsy, le ft eye (Primary Dx) 12/15/2022 Ophth Exam Ophthalmology Maya Osman, OD 12/14/2022 Orders Only Dental Oncology Martínez, [...] Lindy Montenegro PA 12/08/2022 Orders Only Oncology Duy Hdez cystic [place]na carcinoma of [place], DESCRIPTIVE CATALOG LIBRARIAN nasopharynx, 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) 12/05/2022 Telephone Radiation Oncology Winter Luu MD 12/05/2022 Orders Only Radiation Oncology Winter Luu MD nasopharynx (Pr imary Dx) 12/04/2022 Hospital Encounter Matthew Benitez MD Hess, Jennifer Leigh, DESCRIPTIVE CATALOG LIBRARIAN 12/04/2022 Telephone Head and Neck Antonella, Job Costa, DESCRIPTIVE CATALOG LIBRARIAN 12/04/2022 Multidisciplinary Visit Head and Neck Antonella, Surgery Red Costa, DESCRIPTIVE CATALOG LIBRARIAN 12/04/2022 Telephone Radiation Oncology Maria Luz Cochran, RN 12/02/2022 Orders Only Radiation Oncology Joya Monten[place] of Lindy nasopharynx (Pr imary Ashleigh PA Dx) 12/02/2022 Orders Only Radiation Oncology Winter Luu MD nasopharynx (Pr imary Dx) 11/30/2022 Ancillary Procedure Radiology Hdez, Adenocar cinoma of [place]orena nasopharynx Kayla, DESCRIPTIVE CATALOG LIBRARIAN 11/30/2022 Travel 11/27/2022 Ancillary Procedure Radiology Lan, Adenocar cinoma of nasopharynx; 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 BALJINDER Sotelo 11/27/2022 Travel 11/26/2022 Consult Thoracic Medicine Kenny Power, Adenocarci nomkeenan of MD Vaibhav nasopharynx 11/26/2022 Consult Radiation Oncology Winter Luu Adenocarc inoma of nasopharynx; 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 11/26/2022 Travel 11/24/2022 Lab Requisition aDvid Nunez MD Xu, Ya, MD 11/23/2022 Telephone Oncology Ofe Bardales, RN 11/22/2022 Orders Only Dental Oncology Olivier, Nando Gooden MD observation for other suspected condi tion ruled out (Prim cristina Dx) 11/20/2022 Telephone Surgical Oncology Elana Child, JCARLOS 11/17/2022 Office Visit Head and Neck Kenya Agarwal Adenocarcinoma of Surgery MD Sarah nasopharynx 11/17/2022 NPR Patient Access Kenya Agarwal MD 11/17/2022 Travel 11/16/2022 Orders Only Head and Neck McAnulty, Adenocarcinoma of Surgery Red Costa, nasopharynx (Pr imary DESCRIPTIVE CATALOG LIBRARIAN Dx) 11/12/2022 Orders Only Head and Neck Job Honeycutt PA 11/12/2022 Orders Only Head and Neck McAnulty, Adenocarcinoma of nasopharynx (Primary Dx); Surgery Red M, 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 DESCRIPTIVE CATALOG LIBRARIAN after 05/18/2022 Surgical History Surgery Date Site/Laterality Comments APPENDECTOMY [id number] COLONOSCOPY [id number] CHOLECYSTECTOMY [id number] KNEE ARTHROPLASTY Right SHOULDER SURGERY 050@2010 Left UPPER GASTROINTESTINAL ENDOSCOPY [id number] SECTION, CLASSIC 11/01/1984 - 10/31/1985 PARTIAL HYSTERECTOMY 03/01/2012 - 03/31/2012 MYRINGOTOMY WITH ASPIRATION AND 11/01/2019 - 10/31/2020 INSERTION PE TUBES SLEEVE GASTROPLASTY N/A Medical History Medical History Date Comments Hypertension [id number] Hyperlipidemia [id number] Allergic rhinitis [id number] Fatty liver [id number] Gastric reflux [id number] Gastric ulcer [id number] Crohn's disease [id number] Gout [id number] Type 2 diabetes mellitus with 2729846 hyperglycemia Anxiety 57537101 Chronic obstructive pulmonary disease On home supplemental [...] at Date Recorded Female 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 Obstetrics History Last Filed Vital Signs Vital Sign Reading Time Taken Comments Blood Pressure 144/81 04/22/2023 3:38 PM CDT Pulse 91 04/22/2023 3:38 PM CDT Temperature 36.9 C (98.4 F) 04/22/2023 3:38 PM CDT Respiratory Rate 20 04/22/2023 3:38 PM CDT Oxygen Saturation 94% 04/22/2023 3:38 PM CDT Inhaled Oxygen Concentration - - Weight 145.3 kg (320 lb 5.3 oz) 04/22/2023 3:39 PM CDT Height 155 cm (5' 1.02") 04/22/2023 12:37 PM CDT Body Mass Index 60.48 04/22/2023 12:37 PM CDT Plan of Treatment Date Type Specialty Care Team Description 05/18/2023 Telephone Endocrinology No Andrade MD [address] [place] [id number] Freya Kimball RN [address] [place] [phone] 06/17/2023 Treatment Speech Pathology Monico Poole MD [address] [place] [phone] Sheba Olivarez, [facility] [address] [place] [address] [address] [place] [address] 06/21/2023 Telephone Endocrinology Angela Lopes AP RN [address] [place] [phone] Freya Kimball RN [address] [place] [phone] 07/22/2023 Appointment Lab Angela Lopes AP RN [address] [place] [address] (Wo rk) 07/22/2023 Appointment Ophthalmology Suzanne Mcgrath MD [employer] [place], [place] 7[address] (Wo rk) 07/23/2023 Lab Lab Lindy Montenegro PA [address] [place], [place] 7[address] (Wo rk) 07/27/2023 Ancillary Procedure Radiology Lindy Montenegro PA [address] [place], [place] 7703 (Wo rk) 07/27/2023 Follow-Up Head and Neck Surgery Sheri Agarwal MD [address] [place], [place] [address] (Wo rk) 07/28/2023 Telemedicine Endocrinology No nAdrade MD [address] [facility] [address] [place], [place] [address] (Wo rk) Health Maintenance Due Date Last Done Comments COVID-19 Vaccination (4 - Booster 09/05/2021 07/11/2021, , for Moderna series) 12/03/2020 Medical Devices Implanted Type Area Information Security Consultant Device Shelf Model / Identifier Expiration Date Ser ial / Lot Sleeve Sleeve Midline: Stomach Procedures Procedure Name Priority Date/Time Associated Comments Diagnosis MRI ORBITS W WO CONTRAST Routine 04/22/2023 Adenoid cystic R esults for 2:58 PM CDT carcinoma of this procedure nasopharynx, NOS are in the results section. MANUAL DIFFERENTIAL Routine 04/22/2023 Adenoid cystic Result s for 12:28 PM CDT carcinoma of this procedure nasopharynx, NOS are in the results section. Results CBC Routine 04/22/2023 Adenoid cystic Results for 12:28 PM CDT carcinoma of this procedure nasopharynx, NOS are in the results section. .GLOMERULAR FILTRATION Routine 04/22/2023 Adenoid cystic Res ults for RATE 12:28 PM CDT carcinoma of this procedure nasopharynx, NOS are in the results section. SERUM CREATININE Routine 04/22/2023 Adenoid cystic Results f or 12:28 PM CDT carcinoma of this procedure nasopharynx, NOS are in the results section. BLOOD UREA NITROGEN Routine 04/22/2023 Adenoid cystic Result s for 12:28 PM CDT carcinoma of this procedure nasopharynx, NOS are in the results section. SERUM CREATININE Routine 04/22/2023 Adenoid cystic 12:28 PM CDT carcinoma of nasopharynx, NOS ELECTROLYTE PANEL Routine 04/22/2023 Adenoid cystic Results for 12:28 PM CDT carcinoma of this procedure nasopharynx, NOS are in the results section. COMPLETE BLOOD COUNT W/ Routine 04/22/2023 Adenoid cystic DIFFERENTIAL 12:28 PM CDT carcinoma of nasopharynx, NOS CORTISOL Routine 04/22/2023 Adenoid cystic Results for 12:28 PM CDT carcinoma of this procedure nasopharynx, NOS are in the results section. ADRENOCORTICOTROPIC Routine 04/22/2023 Adenoid cystic Result s for HORMONE 12:28 PM CDT carcinoma of this procedure nasopharynx, NOS are in the results section. ESTRADIOL LEVEL Routine 04/22/2023 Adenoid cystic Results fo r 12:28 PM CDT carcinoma of this procedure nasopharynx, NOS are in the results section. FOLLICLE STIMULATING Routine 04/22/2023 Adenoid cystic Resul ts for HORMONE LEVEL 12:28 PM CDT carcinoma of this procedure nasopharynx, NOS are in the results section. LUTEINIZING HORMONE Routine 04/22/2023 Adenoid cystic Result s for 12:28 PM CDT carcinoma of this procedure nasopharynx, NOS are in the results section. THYROID STIMULATING Routine 04/22/2023 Adenoid cystic Result s for HORMONE 12:28 PM CDT carcinoma of this procedure nasopharynx, NOS are in the results section. TOTAL T3 Routine 04/22/2023 Adenoid cystic Results for 12:28 PM CDT carcinoma of this procedure nasopharynx, NOS are in the results section. FREE THYROXINE Routine 04/22/2023 Adenoid cystic Results for 12:28 PM CDT carcinoma of this procedure nasopharynx, NOS are in the results section. INSULIN LIKE GROWTH FACTOR Routine 04/22/2023 Adenoid cystic Results for 1 12:28 PM CDT carcinoma of this procedure nasopharynx, NOS are in the results section. PROLACTIN Routine 04/22/2023 Adenoid cystic Results for 12:28 PM CDT carcinoma of this procedure nasopharynx, NOS are in the results section. FRACTIONATED BILIRUBIN Routine 03/11/2023 Adenoid cystic Res [...] in the results section. HEPATITIS C VIRUS AB Routine 02/07/2023 Results for SCREEN W/REFLEX HCV PCR 6:52 AM CDT this procedure are in the results section. HEPATITIS B CORE ANTIBODY Routine 02/07/2023 Re sults for 6:52 AM CDT this procedure are in the results section. HEPATITIS B SURFACE Routine 02/07/2023 Results for ANTIGEN, SERUM 6:52 AM CDT this procedur e are in the results section. HIV 1/2 ANTIGEN/ANTIBODY, Routine 02/07/2023 Re sults for FOURTH GEN W/RFL 6:52 AM CDT this proced ure are in the results section. BLOODCULTURE Routine 02/07/2023 Results for 6:52 AM CDT this procedure are in the results section. C DIFFICILE DNA ASSAY PATH Routine 02/07/2023 R esults for REVIEW 5:18 AM CDT this procedure are in the results section. C. DIFFICILE DNA DETECTION Routine 02/07/2023 R esults for 5:18 AM CDT this procedure are in the results section. GASTROINTESTINAL MULTIPLEX Routine 02/07/2023 R esults for PANEL PATH REVIEW 5:16 AM CDT this proce dure are in the results section. GASTROINTESTINAL MULTIPLEX Routine 02/07/2023 R esults for PCR PANEL 5:16 AM CDT this procedure are [...] procedure are in the results section. COVID-19 (SARS-COV-2)PCR Routine 02/05/2023 R esults for - ASYMPTOMATIC - LT 5:09 PM CDT this pro cedure are in the results [...] procedure are in the results section. COVID-19 (SARS-COV-2)PCR Routine 01/26/2023 R esults for - ASYMPTOMATIC - LT 4:34 PM CDT this pro cedure are in the results section. TOTAL PROTEIN [...] the results section. CONTROLLED SUBSTANCE Routine 01/20/2023 [facility] current Re sults for MONITORING PANEL, URINE [...] procedure are in the results section. COVID-19 (SARS-COV-2)PCR Routine 01/11/2023 R esults for - ASYMPTOMATIC - LT 10:25 PM CDT this pro cedure are in the results section. XR KNEE [...] Adenoid cystic Result s for 8:28 AM EMPLOYEE BENEFITS DIRECTOR carcinoma of this procedure nasopharynx, NOS are in the results section. Results CBC Routine 01/07/2023 Adenoid cystic Results for 8:28 AM EMPLOYEE BENEFITS DIRECTOR carcinoma of this procedure nasopharynx, NOS are in the results section. FRACTIONATED BILIRUBIN Routine 01/07/2023 Adenoid cystic Res ults for 8:28 AM EMPLOYEE BENEFITS DIRECTOR carcinoma of this procedure nasopharynx, NOS are in the results section. TOTAL PROTEIN Routine 01/07/2023 Adenoid cystic Results for 8:28 AM EMPLOYEE BENEFITS DIRECTOR carcinoma of this procedure nasopharynx, NOS are in the results section. ASPARTATE AMINOTRANSFERASE Routine 01/07/2023 Adenoid cystic Results for 8:28 AM EMPLOYEE BENEFITS DIRECTOR carcinoma of this procedure nasopharynx, NOS are in the results section. ALANINE AMINOTRANSFERASE Routine 01/07/2023 Adenoid cystic R esults for 8:28 AM EMPLOYEE BENEFITS DIRECTOR carcinoma of this procedure nasopharynx, NOS are in the results section. ALKALINE PHOSPHATASE Routine 01/07/2023 Adenoid cystic Resul ts for 8:28 AM EMPLOYEE BENEFITS DIRECTOR carcinoma of this procedure nasopharynx, NOS are in the results section. ALBUMIN LEVEL Routine 01/07/2023 Adenoid cystic Results for 8:28 AM EMPLOYEE BENEFITS DIRECTOR carcinoma of this procedure nasopharynx, NOS are in the results section. CALCIUM LEVEL TOTAL Routine 01/07/2023 Adenoid cystic Result s for 8:28 AM EMPLOYEE BENEFITS DIRECTOR carcinoma of this procedure nasopharynx, NOS are in the results section. .GLOMERULAR FILTRATION Routine 01/07/2023 Adenoid cystic Res ults for RATE 8:28 AM EMPLOYEE BENEFITS DIRECTOR carcinoma of this procedure nasopharynx, NOS are in the results section. SERUM CREATININE Routine 01/07/2023 Adenoid cystic Results f or 8:28 AM EMPLOYEE BENEFITS DIRECTOR carcinoma of this procedure nasopharynx, NOS are in the results section. ELECTROLYTE PANEL Routine 01/07/2023 Adenoid cystic Results for 8:28 AM EMPLOYEE BENEFITS DIRECTOR carcinoma of this procedure nasopharynx, NOS are in the results section. BLOOD UREA NITROGEN Routine 01/07/2023 Adenoid cystic Result s for 8:28 AM EMPLOYEE BENEFITS DIRECTOR carcinoma of this procedure nasopharynx, NOS are in the results section. GLUCOSE LEVEL Routine 01/07/2023 Adenoid cystic Results for 8:28 AM EMPLOYEE BENEFITS DIRECTOR carcinoma of this procedure nasopharynx, NOS are in the results section. PHOSPHORUS LEVEL Routine 01/07/2023 Adenoid cystic Results f or 8:28 AM EMPLOYEE BENEFITS DIRECTOR carcinoma of this procedure nasopharynx, NOS are in the results section. MAGNESIUM LEVEL Routine 01/07/2023 Adenoid cystic Results fo r 8:28 AM EMPLOYEE BENEFITS DIRECTOR carcinoma of this procedure nasopharynx, NOS are in the results section. COMPLETE BLOOD COUNT W/ Routine 01/07/2023 Adenoid cystic DIFFERENTIAL 8:28 AM EMPLOYEE BENEFITS DIRECTOR carcinoma of nasopharynx, NOS COMPREHENSIVE METABOLIC Routine 01/07/2023 Adenoid cystic PANEL 8:28 AM EMPLOYEE BENEFITS DIRECTOR carcinoma of nasopharynx, NOS MANUAL DIFFERENTIAL Routine 01/01/2023 Adenoid cystic Result s for 8:26 AM EMPLOYEE BENEFITS DIRECTOR carcinoma of this procedure nasopharynx, NOS are in the results section. Results CBC Routine 01/01/2023 Adenoid cystic Results for 8:26 AM EMPLOYEE BENEFITS DIRECTOR carcinoma of this procedure nasopharynx, NOS are in the results section. FRACTIONATED BILIRUBIN Routine 01/01/2023 Adenoid cystic Res ults for 8:26 AM EMPLOYEE BENEFITS DIRECTOR carcinoma of this procedure nasopharynx, NOS are in the results section. TOTAL PROTEIN Routine 01/01/2023 Adenoid cystic Results for 8:26 AM EMPLOYEE BENEFITS DIRECTOR carcinoma of this procedure nasopharynx, NOS are in the results section. ASPARTATE AMINOTRANSFERASE Routine 01/01/2023 Adenoid cystic Results for 8:26 AM EMPLOYEE BENEFITS DIRECTOR carcinoma of this procedure nasopharynx, NOS are in the results section. ALANINE AMINOTRANSFERASE Routine 01/01/2023 Adenoid cystic R esults for 8:26 AM EMPLOYEE BENEFITS DIRECTOR carcinoma of this procedure nasopharynx, NOS are in the results section. ALKALINE PHOSPHATASE Routine 01/01/2023 Adenoid cystic Resul ts for 8:26 AM EMPLOYEE BENEFITS DIRECTOR carcinoma of this procedure nasopharynx, NOS are in the results section. ALBUMIN LEVEL Routine 01/01/2023 Adenoid cystic Results for 8:26 AM EMPLOYEE BENEFITS DIRECTOR carcinoma of this procedure nasopharynx, NOS are in the results section. CALCIUM LEVEL TOTAL Routine 01/01/2023 Adenoid cystic Result s for 8:26 AM EMPLOYEE BENEFITS DIRECTOR carcinoma of this procedure nasopharynx, NOS are in the results section. .GLOMERULAR FILTRATION Routine 01/01/2023 Adenoid cystic Res ults for RATE 8:26 AM EMPLOYEE BENEFITS DIRECTOR carcinoma of this procedure nasopharynx, NOS are in the results section. SERUM CREATININE Routine 01/01/2023 Adenoid cystic Results f or 8:26 AM EMPLOYEE BENEFITS DIRECTOR carcinoma of this procedure nasopharynx, NOS are in the results section. ELECTROLYTE PANEL Routine 01/01/2023 Adenoid cystic Results for 8:26 AM EMPLOYEE BENEFITS DIRECTOR carcinoma of this procedure nasopharynx, NOS are in the results section. BLOOD UREA NITROGEN Routine 01/01/2023 Adenoid cystic Result s for 8:26 AM EMPLOYEE BENEFITS DIRECTOR carcinoma of this procedure nasopharynx, NOS are in the results section. GLUCOSE LEVEL Routine 01/01/2023 Adenoid cystic Results for 8:26 AM EMPLOYEE BENEFITS DIRECTOR carcinoma of this procedure nasopharynx, NOS are in the results section. PHOSPHORUS LEVEL Routine 01/01/2023 Adenoid cystic Results f or 8:26 AM EMPLOYEE BENEFITS DIRECTOR carcinoma of this procedure nasopharynx, NOS are in the results section. MAGNESIUM LEVEL Routine 01/01/2023 Adenoid cystic Results fo r 8:26 AM EMPLOYEE BENEFITS DIRECTOR carcinoma of this procedure nasopharynx, NOS are in the results section. COMPLETE BLOOD COUNT W/ Routine 01/01/2023 Adenoid cystic DIFFERENTIAL 8:26 AM EMPLOYEE BENEFITS DIRECTOR carcinoma of nasopharynx, NOS COMPREHENSIVE METABOLIC Routine 01/01/2023 Adenoid cystic PANEL 8:26 AM EMPLOYEE BENEFITS DIRECTOR carcinoma of nasopharynx, NOS [place] VISUAL FIELD, Routine 12/29/2022 Sixth (abducent) R esults for INTERMEDIATE - OU - BOTH 10:51 AM EMPLOYEE BENEFITS DIRECTOR nerve palsy, lef t this procedure EYES eye are in the results section. OCT, OPTIC NERVE - OU - Routine 12/29/2022 Sixth (abducent) Results for BOTH EYES 10:43 AM EMPLOYEE BENEFITS DIRECTOR nerve palsy, left this proce dure eye are in the results section. OCT, RETINA - OU - BOTH Routine 12/29/2022 Sixth (abducent) Results for EYES 10:43 AM EMPLOYEE BENEFITS DIRECTOR nerve palsy, left this proce dure eye are in the results section. MANUAL DIFFERENTIAL Routine 12/24/2022 Adenoid cystic Result s for 9:16 AM EMPLOYEE BENEFITS DIRECTOR carcinoma of this procedure nasopharynx, NOS are in the results section. Results CBC Routine 12/24/2022 Adenoid cystic Results for 9:16 AM EMPLOYEE BENEFITS DIRECTOR carcinoma of this procedure nasopharynx, NOS are in the results section. FRACTIONATED BILIRUBIN Routine 12/24/2022 Adenoid cystic Res ults for 9:16 AM EMPLOYEE BENEFITS DIRECTOR carcinoma of this procedure nasopharynx, NOS are in the results section. TOTAL PROTEIN Routine 12/24/2022 Adenoid cystic Results for 9:16 AM EMPLOYEE BENEFITS DIRECTOR carcinoma of this procedure nasopharynx, NOS are in the results section. ASPARTATE AMINOTRANSFERASE Routine 12/24/2022 Adenoid cystic Results for 9:16 AM EMPLOYEE BENEFITS DIRECTOR carcinoma of this procedure nasopharynx, NOS are in the results section. ALANINE AMINOTRANSFERASE Routine 12/24/2022 Adenoid cystic R esults for 9:16 AM EMPLOYEE BENEFITS DIRECTOR carcinoma of this procedure nasopharynx, NOS are in the results section. ALKALINE PHOSPHATASE Routine 12/24/2022 Adenoid cystic Resul ts for 9:16 AM EMPLOYEE BENEFITS DIRECTOR carcinoma of this procedure nasopharynx, NOS are in the results section. ALBUMIN LEVEL Routine 12/24/2022 Adenoid cystic Results for 9:16 AM EMPLOYEE BENEFITS DIRECTOR carcinoma of this procedure nasopharynx, NOS are in the results section. CALCIUM LEVEL TOTAL Routine 12/24/2022 Adenoid cystic Result s for 9:16 AM EMPLOYEE BENEFITS DIRECTOR carcinoma of this procedure nasopharynx, NOS are in the results section. .GLOMERULAR FILTRATION Routine 12/24/2022 Adenoid cystic Res ults for RATE 9:16 AM EMPLOYEE BENEFITS DIRECTOR carcinoma of this procedure nasopharynx, NOS are in the results section. SERUM CREATININE Routine 12/24/2022 Adenoid cystic Results f or 9:16 AM EMPLOYEE BENEFITS DIRECTOR carcinoma of this procedure nasopharynx, NOS are in the results section. ELECTROLYTE PANEL Routine 12/24/2022 Adenoid cystic Results for 9:16 AM EMPLOYEE BENEFITS DIRECTOR carcinoma of this procedure nasopharynx, NOS are in the results section. BLOOD UREA NITROGEN Routine 12/24/2022 Adenoid cystic Result s for 9:16 AM EMPLOYEE BENEFITS DIRECTOR carcinoma of this procedure nasopharynx, NOS are in the results section. GLUCOSE LEVEL Routine 12/24/2022 Adenoid cystic Results for 9:16 AM EMPLOYEE BENEFITS DIRECTOR carcinoma of this procedure nasopharynx, NOS are in the results section. PHOSPHORUS LEVEL Routine 12/24/2022 Adenoid cystic Results f or 9:16 AM EMPLOYEE BENEFITS DIRECTOR carcinoma of this procedure nasopharynx, NOS are in the results section. MAGNESIUM LEVEL Routine 12/24/2022 Adenoid cystic Results fo r 9:16 AM EMPLOYEE BENEFITS DIRECTOR carcinoma of this procedure nasopharynx, NOS are in the results section. COMPLETE BLOOD COUNT W/ Routine 12/24/2022 Adenoid cystic DIFFERENTIAL 9:16 AM EMPLOYEE BENEFITS DIRECTOR carcinoma of nasopharynx, NOS COMPREHENSIVE METABOLIC Routine 12/24/2022 Adenoid cystic PANEL 9:16 AM EMPLOYEE BENEFITS DIRECTOR carcinoma of nasopharynx, NOS COVID-19 (SARS-COV-2) PCR Routine 12/23/2022 Suspected COVID -19 Results for - ASYMPTOMATIC - MC 12:01 PM EMPLOYEE BENEFITS DIRECTOR this pro cedure are in the results section. POC GLUCOSE SCREEN Routine 12/15/2022 Results f or 6:07 PM EMPLOYEE BENEFITS DIRECTOR this procedure are in the results section. POC GLUCOSE SCREEN Routine 12/15/2022 Results f or 12:52 PM EMPLOYEE BENEFITS DIRECTOR this procedure are in the results section. OCT, OPTIC NERVE - OU - Routine 12/15/2022 Diplopia Resu lts for BOTH EYES 10:37 AM EMPLOYEE BENEFITS DIRECTOR this procedure are in the results section. OCT, RETINA - OU - BOTH Routine 12/15/2022 Diplopia Resu lts for EYES 10:37 AM EMPLOYEE BENEFITS DIRECTOR this procedure are in the results section. FUNDUS PHOTOS - OU - BOTH Routine 12/15/2022 Diplopia Re sults for EYES 10:37 AM EMPLOYEE BENEFITS DIRECTOR this procedure are in the results section. 3D DENTAL IMAGING (ICAT) Routine 12/15/2022 Encounter for Re sults for 8:42 AM EMPLOYEE BENEFITS DIRECTOR observation for this procedu re other suspected are in the disease ruled out results section. POC GLUCOSE SCREEN Routine 12/15/2022 Results f or 7:19 AM EMPLOYEE BENEFITS DIRECTOR this procedure are in the results section. POC GLUCOSE SCREEN Routine 12/15/2022 Results f or 6:12 AM EMPLOYEE BENEFITS DIRECTOR this procedure are in the results section. MANUAL DIFFERENTIAL AM 12/15/2022 Results for 3:44 AM EMPLOYEE BENEFITS DIRECTOR this procedure are in the results section. Results CBC AM 12/15/2022 Results for 3:44 AM EMPLOYEE BENEFITS DIRECTOR this procedure are in the results section. CALCIUM LEVEL TOTAL AM 12/15/2022 Results for 3:44 AM EMPLOYEE BENEFITS DIRECTOR this procedure are in the results section. .GLOMERULAR FILTRATION AM 12/15/2022 Resul ts for RATE 3:44 AM EMPLOYEE BENEFITS DIRECTOR this procedure are in the results section. SERUM CREATININE AM 12/15/2022 Results for 3:44 AM EMPLOYEE BENEFITS DIRECTOR this procedure are in the results section. ELECTROLYTE PANEL AM 12/15/2022 Results fo r 3:44 AM EMPLOYEE BENEFITS DIRECTOR this procedure are in the results section. BLOOD UREA NITROGEN AM 12/15/2022 Results for 3:44 AM EMPLOYEE BENEFITS DIRECTOR this procedure are in the results section. GLUCOSE LEVEL AM 12/15/2022 Results for 3:44 AM EMPLOYEE BENEFITS DIRECTOR this procedure are in the results section. COMPLETE BLOOD COUNT W/ AM 12/15/2022 DIFFERENTIAL 3:44 AM EMPLOYEE BENEFITS DIRECTOR PHOSPHORUS LEVEL AM 12/15/2022 Results for 3:44 AM EMPLOYEE BENEFITS DIRECTOR this procedure are in the results section. MAGNESIUM LEVEL AM 12/15/2022 Results for 3:44 AM EMPLOYEE BENEFITS DIRECTOR this procedure are in the results section. BASIC METABOLIC PANEL, AM 12/15/2022 CALCIUM TOTAL 3:44 AM EMPLOYEE BENEFITS DIRECTOR POC GLUCOSE SCREEN Routine 12/15/2022 Results f or 2:28 AM EMPLOYEE BENEFITS DIRECTOR this procedure are in the results section. POC GLUCOSE SCREEN Routine 12/14/2022 Results f or 10:04 PM EMPLOYEE BENEFITS DIRECTOR this procedure are in the results section. POC GLUCOSE SCREEN Routine 12/14/2022 Results f or 5:26 PM EMPLOYEE BENEFITS DIRECTOR this procedure are in the results section. POC GLUCOSE SCREEN Routine 12/14/2022 Results f or 4:14 PM EMPLOYEE BENEFITS DIRECTOR this procedure are in the results section. FL MODIFIED BARIUM SWALLOW Routine 12/14/2022 R esults for W SPEECH 2:37 PM EMPLOYEE BENEFITS DIRECTOR this procedure are in the results section. POC GLUCOSE SCREEN Routine 12/14/2022 Results f or 12:08 PM EMPLOYEE BENEFITS DIRECTOR this procedure are in the results section. GENERAL LABORATORY ADD ON Routine 12/14/2022 Re sults for TEST 8:03 AM EMPLOYEE BENEFITS DIRECTOR this procedure are in the results section. POC GLUCOSE SCREEN Routine 12/14/2022 Results f or 7:25 AM EMPLOYEE BENEFITS DIRECTOR this procedure are in the results section. POC GLUCOSE SCREEN Routine 12/14/2022 Results f or 5:55 AM EMPLOYEE BENEFITS DIRECTOR this procedure are in the results section. FRACTIONATED BILIRUBIN AM 12/14/2022 Resul ts for 4:46 AM EMPLOYEE BENEFITS DIRECTOR this procedure are in the results section. TOTAL PROTEIN AM 12/14/2022 Results for 4:46 AM EMPLOYEE BENEFITS DIRECTOR this procedure are in the results section. ASPARTATE AMINOTRANSFERASE AM 12/14/2022 R esults for 4:46 AM EMPLOYEE BENEFITS DIRECTOR this procedure are in the results section. ALANINE AMINOTRANSFERASE AM 12/14/2022 Res ults for 4:46 AM EMPLOYEE BENEFITS DIRECTOR this procedure are in the results section. ALKALINE PHOSPHATASE AM 12/14/2022 Results for 4:46 AM EMPLOYEE BENEFITS DIRECTOR this procedure are in the results section. ALBUMIN LEVEL AM 12/14/2022 Results for 4:46 AM EMPLOYEE BENEFITS DIRECTOR this procedure are in the results section. MANUAL DIFFERENTIAL AM 12/14/2022 Results for 4:46 AM EMPLOYEE BENEFITS DIRECTOR this procedure are in the results section. Results CBC AM 12/14/2022 Results for 4:46 AM EMPLOYEE BENEFITS DIRECTOR this procedure are in the results section. CALCIUM LEVEL TOTAL AM 12/14/2022 Results for 4:46 AM EMPLOYEE BENEFITS DIRECTOR this procedure are in the results section. .GLOMERULAR FILTRATION AM 12/14/2022 Resul ts for RATE 4:46 AM EMPLOYEE BENEFITS DIRECTOR this procedure are in the results section. SERUM CREATININE AM 12/14/2022 Results for 4:46 AM EMPLOYEE BENEFITS DIRECTOR this procedure are in the results section. ELECTROLYTE PANEL AM 12/14/2022 Results fo r 4:46 AM EMPLOYEE BENEFITS DIRECTOR this procedure are in the results section. BLOOD UREA NITROGEN AM 12/14/2022 Results for 4:46 AM EMPLOYEE BENEFITS DIRECTOR this procedure are in the results section. GLUCOSE LEVEL AM 12/14/2022 Results for 4:46 AM EMPLOYEE BENEFITS DIRECTOR this procedure are in the results section. COMPLETE BLOOD COUNT W/ AM 12/14/2022 DIFFERENTIAL 4:46 AM EMPLOYEE BENEFITS DIRECTOR PHOSPHORUS LEVEL AM 12/14/2022 Results for 4:46 AM EMPLOYEE BENEFITS DIRECTOR this procedure are in the results section. MAGNESIUM LEVEL AM 12/14/2022 Results for 4:46 AM EMPLOYEE BENEFITS DIRECTOR this procedure are in the results section. BASIC METABOLIC PANEL, AM 12/14/2022 CALCIUM TOTAL 4:46 AM EMPLOYEE BENEFITS DIRECTOR POC GLUCOSE SCREEN Routine 12/14/2022 Results f or 1:36 AM EMPLOYEE BENEFITS DIRECTOR this procedure are in the results section. POC GLUCOSE SCREEN Routine 12/13/2022 Results f or 9:56 PM EMPLOYEE BENEFITS DIRECTOR this procedure are in the results section. POC GLUCOSE SCREEN Routine 12/13/2022 Results f or 6:31 PM EMPLOYEE BENEFITS DIRECTOR this procedure are in the results section. POC GLUCOSE SCREEN Routine 12/13/2022 Results f or 1:24 PM EMPLOYEE BENEFITS DIRECTOR this procedure are in the results section. POC GLUCOSE SCREEN Routine 12/13/2022 Results f or 8:02 AM EMPLOYEE BENEFITS DIRECTOR this procedure are in the results section. POC GLUCOSE SCREEN Routine 12/13/2022 Results f or 5:58 AM EMPLOYEE BENEFITS DIRECTOR this procedure are in the results section. POC GLUCOSE SCREEN Routine 12/13/2022 Results f or 3:24 AM EMPLOYEE BENEFITS DIRECTOR this procedure are in the results section. MANUAL DIFFERENTIAL AM 12/13/2022 Results for 3:12 AM EMPLOYEE BENEFITS DIRECTOR this procedure are in the results section. Results CBC AM 12/13/2022 Results for 3:12 AM EMPLOYEE BENEFITS DIRECTOR this procedure are in the results section. CALCIUM LEVEL TOTAL AM 12/13/2022 Results for 3:12 AM EMPLOYEE BENEFITS DIRECTOR this procedure are in the results section. .GLOMERULAR FILTRATION AM 12/13/2022 Resul ts for RATE 3:12 AM EMPLOYEE BENEFITS DIRECTOR this procedure are in the results section. SERUM CREATININE AM 12/13/2022 Results for 3:12 AM EMPLOYEE BENEFITS DIRECTOR this procedure are in the results section. ELECTROLYTE PANEL AM 12/13/2022 Results fo r 3:12 AM EMPLOYEE BENEFITS DIRECTOR this procedure are in the results section. BLOOD UREA NITROGEN AM 12/13/2022 Results for 3:12 AM EMPLOYEE BENEFITS DIRECTOR this procedure are in the results section. GLUCOSE LEVEL AM 12/13/2022 Results for 3:12 AM EMPLOYEE BENEFITS DIRECTOR this procedure are in the results section. COMPLETE BLOOD COUNT W/ AM 12/13/2022 DIFFERENTIAL 3:12 AM EMPLOYEE BENEFITS DIRECTOR PHOSPHORUS LEVEL AM 12/13/2022 Results for 3:12 AM EMPLOYEE BENEFITS DIRECTOR this procedure are in the results section. MAGNESIUM LEVEL AM 12/13/2022 Results for 3:12 AM EMPLOYEE BENEFITS DIRECTOR this procedure are in the results section. BASIC METABOLIC PANEL, AM 12/13/2022 CALCIUM TOTAL 3:12 AM EMPLOYEE BENEFITS DIRECTOR POC GLUCOSE SCREEN Routine 12/12/2022 Results f or 9:43 PM EMPLOYEE BENEFITS DIRECTOR this procedure are in the results section. POC GLUCOSE SCREEN Routine 12/12/2022 Results f or 6:16 PM EMPLOYEE BENEFITS DIRECTOR this procedure are in the results section. POC GLUCOSE SCREEN Routine 12/12/2022 Results f or 12:52 PM EMPLOYEE BENEFITS DIRECTOR this procedure are in the results section. POC GLUCOSE SCREEN Routine 12/12/2022 Results f or 7:47 AM EMPLOYEE BENEFITS DIRECTOR this procedure are in the results section. POC GLUCOSE SCREEN Routine 12/12/2022 Results f or 5:52 AM EMPLOYEE BENEFITS DIRECTOR this procedure are in the results section. MANUAL DIFFERENTIAL AM 12/12/2022 Results for 4:30 AM EMPLOYEE BENEFITS DIRECTOR this procedure are in the results section. Results CBC AM 12/12/2022 Results for 4:30 AM EMPLOYEE BENEFITS DIRECTOR this procedure are in the results section. CALCIUM LEVEL TOTAL AM 12/12/2022 Results for 4:30 AM EMPLOYEE BENEFITS DIRECTOR this procedure are in the results section. .GLOMERULAR FILTRATION AM 12/12/2022 Resul ts for RATE 4:30 AM EMPLOYEE BENEFITS DIRECTOR this procedure are in the results section. SERUM CREATININE AM 12/12/2022 Results for 4:30 AM EMPLOYEE BENEFITS DIRECTOR this procedure are in the results section. ELECTROLYTE PANEL AM 12/12/2022 Results fo r 4:30 AM EMPLOYEE BENEFITS DIRECTOR this procedure are in the results section. BLOOD UREA NITROGEN AM 12/12/2022 Results for 4:30 AM EMPLOYEE BENEFITS DIRECTOR this procedure are in the results section. GLUCOSE LEVEL AM 12/12/2022 Results for 4:30 AM EMPLOYEE BENEFITS DIRECTOR this procedure are in the results section. COMPLETE BLOOD COUNT W/ AM 12/12/2022 DIFFERENTIAL 4:30 AM EMPLOYEE BENEFITS DIRECTOR PHOSPHORUS LEVEL AM 12/12/2022 Results for 4:30 AM EMPLOYEE BENEFITS DIRECTOR this procedure are in the results section. MAGNESIUM LEVEL AM 12/12/2022 Results for 4:30 AM EMPLOYEE BENEFITS DIRECTOR this procedure are in the results section. BASIC METABOLIC PANEL, AM 12/12/2022 CALCIUM TOTAL 4:30 AM EMPLOYEE BENEFITS DIRECTOR POC GLUCOSE SCREEN Routine 12/12/2022 Results f or 2:06 AM EMPLOYEE BENEFITS DIRECTOR this procedure are in the results section. POC GLUCOSE SCREEN Routine 12/11/2022 Results f or 10:01 PM EMPLOYEE BENEFITS DIRECTOR this procedure are in the results section. LACTIC ACID, VENOUS Timed Study 12/11/2022 Results for 9:50 PM EMPLOYEE BENEFITS DIRECTOR this procedure are in the results section. LIPASE LEVEL STAT 12/11/2022 Results for 6:21 PM EMPLOYEE BENEFITS DIRECTOR this procedure are in the results section. VENOUS BLOOD GAS STAT 12/11/2022 Results for 6:21 PM EMPLOYEE BENEFITS DIRECTOR this procedure are in the results section. POC GLUCOSE SCREEN Routine 12/11/2022 Results f or 6:10 PM EMPLOYEE BENEFITS DIRECTOR this procedure are in the results section. GENERAL LABORATORY ADD ON Routine 12/11/2022 Re sults for TEST 5:39 PM EMPLOYEE BENEFITS DIRECTOR this procedure are in the results section. KETONE BODIES QUALITATIVE STAT 12/11/2022 Re sults for 5:19 PM EMPLOYEE BENEFITS DIRECTOR this procedure are in the results section. POC GLUCOSE SCREEN Routine 12/11/2022 Results f or 4:51 PM EMPLOYEE BENEFITS DIRECTOR this procedure are in the results section. LIPASE LEVEL STAT 12/11/2022 Results for 4:33 PM EMPLOYEE BENEFITS DIRECTOR this procedure are in the results section. ELECTROLYTE PANEL STAT 12/11/2022 Results fo r 4:33 PM EMPLOYEE BENEFITS DIRECTOR this procedure are in the results section. LACTIC ACID, VENOUS Timed Study 12/11/2022 Results for 4:33 PM EMPLOYEE BENEFITS DIRECTOR this procedure are in the results section. POC GLUCOSE SCREEN Routine 12/11/2022 Results f or 3:34 PM EMPLOYEE BENEFITS DIRECTOR this procedure are in the results section. POC CRITICAL Routine 12/11/2022 Results for 3:34 PM EMPLOYEE BENEFITS DIRECTOR this procedure are in the results section. POC GLUCOSE SCREEN Routine 12/11/2022 Results f or 2:33 PM EMPLOYEE BENEFITS DIRECTOR this procedure are in the results section. POC CRITICAL Routine 12/11/2022 Results for 2:33 PM EMPLOYEE BENEFITS DIRECTOR this procedure are in the results section. POC GLUCOSE SCREEN Routine 12/11/2022 Results f or 12:35 PM EMPLOYEE BENEFITS DIRECTOR this procedure are in the results section. POC GLUCOSE SCREEN Routine 12/11/2022 Results f or 8:14 AM EMPLOYEE BENEFITS DIRECTOR this procedure are in the results section. LACTIC ACID, VENOUS Routine 12/11/2022 Results for 4:37 AM EMPLOYEE BENEFITS DIRECTOR this procedure are in the results section. MANUAL DIFFERENTIAL AM 12/11/2022 Results for 4:30 AM EMPLOYEE BENEFITS DIRECTOR this procedure are in the results section. Results CBC AM 12/11/2022 Results for 4:30 AM EMPLOYEE BENEFITS DIRECTOR this procedure are in the results section. CALCIUM LEVEL TOTAL AM 12/11/2022 Results for 4:30 AM EMPLOYEE BENEFITS DIRECTOR this procedure are in the results section. .GLOMERULAR FILTRATION AM 12/11/2022 Resul ts for RATE 4:30 AM EMPLOYEE BENEFITS DIRECTOR this procedure are in the results section. SERUM CREATININE AM 12/11/2022 Results for 4:30 AM EMPLOYEE BENEFITS DIRECTOR this procedure are in the results section. ELECTROLYTE PANEL AM 12/11/2022 Results fo r 4:30 AM EMPLOYEE BENEFITS DIRECTOR this procedure are in the results section. BLOOD UREA NITROGEN AM 12/11/2022 Results for 4:30 AM EMPLOYEE BENEFITS DIRECTOR this procedure are in the results section. GLUCOSE LEVEL AM 12/11/2022 Results for 4:30 AM EMPLOYEE BENEFITS DIRECTOR this procedure are in the results section. COMPLETE BLOOD COUNT W/ AM 12/11/2022 DIFFERENTIAL 4:30 AM EMPLOYEE BENEFITS DIRECTOR PHOSPHORUS LEVEL AM 12/11/2022 Results for 4:30 AM EMPLOYEE BENEFITS DIRECTOR this procedure are in the results section. MAGNESIUM LEVEL AM 12/11/2022 Results for 4:30 AM EMPLOYEE BENEFITS DIRECTOR this procedure are in the results section. BASIC METABOLIC PANEL, AM 12/11/2022 CALCIUM TOTAL 4:30 AM EMPLOYEE BENEFITS DIRECTOR POC GLUCOSE SCREEN Routine 12/11/2022 Results f or 1:20 AM EMPLOYEE BENEFITS DIRECTOR this procedure are in the results section. POC GLUCOSE SCREEN Routine 12/10/2022 Results f or 10:00 PM EMPLOYEE BENEFITS DIRECTOR this procedure are in the results section. POC GLUCOSE SCREEN Routine 12/10/2022 Results f or 6:29 PM EMPLOYEE BENEFITS DIRECTOR this procedure are in the results section. POC GLUCOSE SCREEN Routine 12/10/2022 Results f or 5:20 PM EMPLOYEE BENEFITS DIRECTOR this procedure are in the results section. CT HEAD WO CONTRAST STAT 12/10/2022 Results for 3:21 PM EMPLOYEE BENEFITS DIRECTOR this procedure are in the results section. POC GLUCOSE SCREEN Routine 12/10/2022 Results f or 1:45 PM EMPLOYEE BENEFITS DIRECTOR this procedure are in the results section. POC GLUCOSE SCREEN Routine 12/10/2022 Results f or 11:35 AM EMPLOYEE BENEFITS DIRECTOR this procedure are in the results section. POC GLUCOSE SCREEN Routine 12/10/2022 Results f or 7:30 AM EMPLOYEE BENEFITS DIRECTOR this procedure are in the results section. URINALYSIS WITH Routine 12/10/2022 Results for MICROSCOPIC IF INDICATED 6:13 AM EMPLOYEE BENEFITS DIRECTOR thi s procedure are in the results section. URINE CULTURE Routine 12/10/2022 Results for 6:13 AM EMPLOYEE BENEFITS DIRECTOR this procedure are in the results section. MANUAL DIFFERENTIAL STAT 12/10/2022 Results for 5:13 AM EMPLOYEE BENEFITS DIRECTOR this procedure are in the results section. Results CBC STAT 12/10/2022 Results for 5:13 AM EMPLOYEE BENEFITS DIRECTOR this procedure are in the results section. CALCIUM LEVEL TOTAL AM 12/10/2022 Results for 5:13 AM EMPLOYEE BENEFITS DIRECTOR this procedure are in the results section. .GLOMERULAR FILTRATION AM 12/10/2022 Resul ts for RATE 5:13 AM EMPLOYEE BENEFITS DIRECTOR this procedure are in the results section. SERUM CREATININE AM 12/10/2022 Results for 5:13 AM EMPLOYEE BENEFITS DIRECTOR this procedure are in the results section. ELECTROLYTE PANEL AM 12/10/2022 Results fo r 5:13 AM EMPLOYEE BENEFITS DIRECTOR this procedure are in the results section. BLOOD UREA NITROGEN AM 12/10/2022 Results for 5:13 AM EMPLOYEE BENEFITS DIRECTOR this procedure are in the results section. GLUCOSE LEVEL AM 12/10/2022 Results for 5:13 AM EMPLOYEE BENEFITS DIRECTOR this procedure are in the results section. HEMOGLOBIN A1C Routine 12/10/2022 Results for 5:13 AM EMPLOYEE BENEFITS DIRECTOR this procedure are in the results section. COMPLETE BLOOD COUNT W/ AM 12/10/2022 DIFFERENTIAL 5:13 AM EMPLOYEE BENEFITS DIRECTOR PHOSPHORUS LEVEL AM 12/10/2022 Results for 5:13 AM EMPLOYEE BENEFITS DIRECTOR this procedure are in the results section. MAGNESIUM LEVEL AM 12/10/2022 Results for 5:13 AM EMPLOYEE BENEFITS DIRECTOR this procedure are in the results section. BASIC METABOLIC PANEL, AM 12/10/2022 CALCIUM TOTAL 5:13 AM EMPLOYEE BENEFITS DIRECTOR POC GLUCOSE SCREEN Routine 12/10/2022 Results f or 1:38 AM EMPLOYEE BENEFITS DIRECTOR this procedure are in the results section. POC GLUCOSE SCREEN Routine 12/09/2022 Results f or 11:18 PM EMPLOYEE BENEFITS DIRECTOR this procedure are in the results section. POC VENOUS BLOOD GAS + Routine 12/09/2022 Resul ts for LACTATE 9:36 PM EMPLOYEE BENEFITS DIRECTOR this procedure are in the results section. FRACTIONATED BILIRUBIN Routine 12/09/2022 Resul ts for 6:01 PM EMPLOYEE BENEFITS DIRECTOR this procedure are in the results section. TOTAL PROTEIN Routine 12/09/2022 Results for 6:01 PM EMPLOYEE BENEFITS DIRECTOR this procedure are in the results section. ASPARTATE AMINOTRANSFERASE Routine 12/09/2022 R esults for 6:01 PM EMPLOYEE BENEFITS DIRECTOR this procedure are in the results section. ALANINE AMINOTRANSFERASE Routine 12/09/2022 Res ults for 6:01 PM EMPLOYEE BENEFITS DIRECTOR this procedure are in the results section. ALKALINE PHOSPHATASE Routine 12/09/2022 Results for 6:01 PM EMPLOYEE BENEFITS DIRECTOR this procedure are in the results section. ALBUMIN LEVEL Routine 12/09/2022 Results for 6:01 PM EMPLOYEE BENEFITS DIRECTOR this procedure are in the results section. CALCIUM LEVEL TOTAL Routine 12/09/2022 Results for 6:01 PM EMPLOYEE BENEFITS DIRECTOR this procedure are in the results section. .GLOMERULAR FILTRATION Routine 12/09/2022 Resul ts for RATE 6:01 PM EMPLOYEE BENEFITS DIRECTOR this procedure are in the results section. SERUM CREATININE Routine 12/09/2022 Results for 6:01 PM EMPLOYEE BENEFITS DIRECTOR this procedure are in the results section. ELECTROLYTE PANEL Routine 12/09/2022 Results fo r 6:01 PM EMPLOYEE BENEFITS DIRECTOR this procedure are in the results section. BLOOD UREA NITROGEN Routine 12/09/2022 Results for 6:01 PM EMPLOYEE BENEFITS DIRECTOR this procedure are in the results section. GLUCOSE LEVEL Routine 12/09/2022 Results for 6:01 PM EMPLOYEE BENEFITS DIRECTOR this procedure are in the results section. MANUAL DIFFERENTIAL STAT 12/09/2022 Results for 6:01 PM EMPLOYEE BENEFITS DIRECTOR this procedure are in the results section. Results CBC STAT 12/09/2022 Results for 6:01 PM EMPLOYEE BENEFITS DIRECTOR this procedure are in the results section. LACTATE DEHYDROGENASE Routine 12/09/2022 Result s for 6:01 PM EMPLOYEE BENEFITS DIRECTOR this procedure are in the results section. APTT Routine 12/09/2022 Results for 6:01 PM EMPLOYEE BENEFITS DIRECTOR this procedure are in the results section. PROTHROMBIN TIME Routine 12/09/2022 Results for 6:01 PM EMPLOYEE BENEFITS DIRECTOR this procedure are in the results section. PHOSPHORUS LEVEL Routine 12/09/2022 Results for 6:01 PM EMPLOYEE BENEFITS DIRECTOR this procedure are in the results section. MAGNESIUM LEVEL Routine 12/09/2022 Results for 6:01 PM EMPLOYEE BENEFITS DIRECTOR this procedure are in the results section. COMPREHENSIVE METABOLIC Routine 12/09/2022 PANEL 6:01 PM EMPLOYEE BENEFITS DIRECTOR COMPLETE BLOOD COUNT W/ Routine 12/09/2022 DIFFERENTIAL 6:01 PM EMPLOYEE BENEFITS DIRECTOR AMMONIA LEVEL Routine 12/09/2022 Results for 6:01 PM EMPLOYEE BENEFITS DIRECTOR this procedure are in the results section. COVID-19 (SARS-COV-2)PCR Routine 12/09/2022 R esults for - ASYMPTOMATIC - LT 6:01 PM EMPLOYEE BENEFITS DIRECTOR this pro cedure are in the results section. HP MOLECULAR BLOOD Routine 12/04/2022 Results f or COLLECTION 10:56 AM EMPLOYEE BENEFITS DIRECTOR this procedure are in the results section. MISSY GRIFFIN SOLID TUMOR GENOMIC Routine 12/04/2022 ASSAY FUSIONS 2018 10:56 AM EMPLOYEE BENEFITS DIRECTOR INTERPRETATION AND REPORT HP MDA CHRISTINE MUTATION Routine 12/04/2022 ANALYSIS PRECISION PANEL 10:56 AM EMPLOYEE BENEFITS DIRECTOR REPORT MRI SKULL BASE WITH AND Routine 11/30/2022 Adenocarcinoma of Results for WITHOUT CONTRAST 11:12 AM EMPLOYEE BENEFITS DIRECTOR nasopharynx this proced ure are in the results section. PETCT CONTRAST ENHANCED Routine 11/27/2022 Adenocarcinoma of Results for INITIAL TREATMENT STRATEGY 3:57 PM EMPLOYEE BENEFITS DIRECTOR nasop harynx this procedure Malignant neoplasm are in th e of overlapping results sites of section. nasopharynx POC GLUCOSE SCREEN Routine 11/27/2022 Results f or 1:06 PM EMPLOYEE BENEFITS DIRECTOR this procedure are in the results section. POC GLUCOSE SCREEN Routine 11/27/2022 Results f or 12:29 PM EMPLOYEE BENEFITS DIRECTOR this procedure are in the results section. FRACTIONATED BILIRUBIN Routine 11/26/2022 Adenocarcinoma of Results for 1:07 PM EMPLOYEE BENEFITS DIRECTOR nasopharynx this procedure are in the results section. TOTAL PROTEIN Routine 11/26/2022 Adenocarcinoma of Results f or 1:07 PM EMPLOYEE BENEFITS DIRECTOR nasopharynx this procedure are in the results section. ASPARTATE AMINOTRANSFERASE Routine 11/26/2022 Adenocarcinoma of Results for 1:07 PM EMPLOYEE BENEFITS DIRECTOR nasopharynx this procedure are in the results section. ALANINE AMINOTRANSFERASE Routine 11/26/2022 Adenocarcinoma o f Results for 1:07 PM EMPLOYEE BENEFITS DIRECTOR nasopharynx this procedure are in the results section. ALKALINE PHOSPHATASE Routine 11/26/2022 Adenocarcinoma of Re sults for 1:07 PM EMPLOYEE BENEFITS DIRECTOR nasopharynx this procedure are in the results section. ALBUMIN LEVEL Routine 11/26/2022 Adenocarcinoma of Results f or 1:07 PM EMPLOYEE BENEFITS DIRECTOR nasopharynx this procedure are in the results section. CALCIUM LEVEL TOTAL Routine 11/26/2022 Adenocarcinoma of Res ults for 1:07 PM EMPLOYEE BENEFITS DIRECTOR nasopharynx this procedure are in the results section. .GLOMERULAR FILTRATION Routine 11/26/2022 Adenocarcinoma of Results for RATE 1:07 PM EMPLOYEE BENEFITS DIRECTOR nasopharynx this procedure are in the results section. SERUM CREATININE Routine 11/26/2022 Adenocarcinoma of Result s for 1:07 PM EMPLOYEE BENEFITS DIRECTOR nasopharynx this procedure are in the results section. ELECTROLYTE PANEL Routine 11/26/2022 Adenocarcinoma of Resul ts for 1:07 PM EMPLOYEE BENEFITS DIRECTOR nasopharynx this procedure are in the results section. BLOOD UREA NITROGEN Routine 11/26/2022 Adenocarcinoma of Res ults for 1:07 PM EMPLOYEE BENEFITS DIRECTOR nasopharynx this procedure are in the results section. GLUCOSE LEVEL Routine 11/26/2022 Adenocarcinoma of Results f or 1:07 PM EMPLOYEE BENEFITS DIRECTOR nasopharynx this procedure are in the results section. MANUAL DIFFERENTIAL Routine 11/26/2022 Adenocarcinoma of Res ults for 1:07 PM EMPLOYEE BENEFITS DIRECTOR nasopharynx this procedure are in the results section. Results CBC Routine 11/26/2022 Adenocarcinoma of Results fo r 1:07 PM EMPLOYEE BENEFITS DIRECTOR nasopharynx this procedure are in the results section. PROTHROMBIN TIME Routine 11/26/2022 Adenocarcinoma of Result s for 1:07 PM EMPLOYEE BENEFITS DIRECTOR nasopharynx this procedure are in the results section. APTT Routine 11/26/2022 Adenocarcinoma of Results fo r 1:07 PM EMPLOYEE BENEFITS DIRECTOR nasopharynx this procedure are in the results section. THYROID STIMULATING Routine 11/26/2022 Adenocarcinoma of Res ults for HORMONE 1:07 PM EMPLOYEE BENEFITS DIRECTOR nasopharynx this procedure are in the results section. VITAMIN D 25 HYDROXY LEVEL Routine 11/26/2022 Adenocarcinoma of Results for 1:07 PM EMPLOYEE BENEFITS DIRECTOR nasopharynx this procedure are in the results section. URIC ACID Routine 11/26/2022 Adenocarcinoma of Results fo r 1:07 PM EMPLOYEE BENEFITS DIRECTOR nasopharynx this procedure are in the results section. PHOSPHORUS LEVEL Routine 11/26/2022 Adenocarcinoma of Result s for 1:07 PM EMPLOYEE BENEFITS DIRECTOR nasopharynx this procedure are in the results section. MAGNESIUM LEVEL Routine 11/26/2022 Adenocarcinoma of Results for 1:07 PM EMPLOYEE BENEFITS DIRECTOR nasopharynx this procedure are in the results section. LACTATE DEHYDROGENASE Routine 11/26/2022 Adenocarcinoma of R esults for 1:07 PM EMPLOYEE BENEFITS DIRECTOR nasopharynx this procedure are in the results section. FREE THYROXINE Routine 11/26/2022 Adenocarcinoma of Results for 1:07 PM EMPLOYEE BENEFITS DIRECTOR nasopharynx this procedure are in the results section. COMPREHENSIVE METABOLIC Routine 11/26/2022 Adenocarcinoma of PANEL 1:07 PM EMPLOYEE BENEFITS DIRECTOR nasopharynx COMPLETE BLOOD COUNT W/ Routine 11/26/2022 Adenocarcinoma of DIFFERENTIAL 1:07 PM EMPLOYEE BENEFITS DIRECTOR nasopharynx MD NGS BLOOD CONTROL Routine 11/26/2022 Adenocarcinoma of Re sults for 1:07 PM EMPLOYEE BENEFITS DIRECTOR nasopharynx this procedure are in the results section. AP IHC HER2/ARCENIO MATERIAL Routine 11/26/2022 Adenocarcinoma o f REQUEST 12:43 PM EMPLOYEE BENEFITS DIRECTOR nasopharynx AP IHC PD-L1 MATERIAL Routine 11/26/2022 Adenocarcinoma of REQUEST 12:43 PM EMPLOYEE BENEFITS DIRECTOR nasopharynx ANA CRISTINA GRIFFIN PTEN MUTATION Routine 11/26/2022 Adenocarcinoma of Res ults for MATERIAL REQUEST 12:43 PM EMPLOYEE BENEFITS DIRECTOR nasopharynx this proced ure are in the results section. ANA CRISTINA GRIFFIN MTOR MATERIAL Routine 11/26/2022 Adenocarcinoma of Res ults for REQUEST 12:43 PM EMPLOYEE BENEFITS DIRECTOR nasopharynx this procedure are in the results section. ANA CRISTINA GRIFFIN ERBB2 MUTATION Routine 11/26/2022 Adenocarcinoma of Re sults for ANALAYSIS MATERIAL REQUEST 12:43 PM EMPLOYEE BENEFITS DIRECTOR nasopharynx t his procedure are in the results section. ANA CRISTINA GRIFFIN EGFR MUTATION Routine 11/26/2022 Adenocarcinoma of Res ults for MATERIAL REQUEST 12:43 PM EMPLOYEE BENEFITS DIRECTOR nasopharynx this proced ure are in the results section. 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 ANA CRISTINA GRIFFIN NTRK3 FUSION Routine 11/26/2022 Adenocarcinoma of Resu lts for ANALYSIS MATERIAL REQUEST 12:43 PM EMPLOYEE BENEFITS DIRECTOR nasopharynx th is procedure are in the results section. ANA CRISTINA GRIFFIN NTRK2 FUSION Routine 11/26/2022 Adenocarcinoma of Resu lts for ANALYSIS MATERIAL REQUEST 12:43 PM EMPLOYEE BENEFITS DIRECTOR nasopharynx th is procedure are in the results section. ANA CRISTINA GRIFFIN NTRK1 FUSION Routine 11/26/2022 Adenocarcinoma of Resu lts for ANALYSIS MATERIAL REQUEST 12:43 PM EMPLOYEE BENEFITS DIRECTOR nasopharynx th is procedure are in the results section. MANUAL DIFFERENTIAL Routine 11/17/2022 Adenocarcinoma of Res ults for 12:11 PM EMPLOYEE BENEFITS DIRECTOR nasopharynx this procedure are in the results section. Results CBC Routine 11/17/2022 Adenocarcinoma of Results fo r 12:11 PM EMPLOYEE BENEFITS DIRECTOR nasopharynx this procedure are in the results section. FRACTIONATED BILIRUBIN Routine 11/17/2022 Adenocarcinoma of Results for 12:11 PM EMPLOYEE BENEFITS DIRECTOR nasopharynx this procedure are in the results section. TOTAL PROTEIN Routine 11/17/2022 Adenocarcinoma of Results f or 12:11 PM EMPLOYEE BENEFITS DIRECTOR nasopharynx this procedure are in the results section. ASPARTATE AMINOTRANSFERASE Routine 11/17/2022 Adenocarcinoma of Results for 12:11 PM EMPLOYEE BENEFITS DIRECTOR nasopharynx this procedure are in the results section. ALANINE AMINOTRANSFERASE Routine 11/17/2022 Adenocarcinoma o f Results for 12:11 PM EMPLOYEE BENEFITS DIRECTOR nasopharynx this procedure are in the results section. ALKALINE PHOSPHATASE Routine 11/17/2022 Adenocarcinoma of Re sults for 12:11 PM EMPLOYEE BENEFITS DIRECTOR nasopharynx this procedure are in the results section. ALBUMIN LEVEL Routine 11/17/2022 Adenocarcinoma of Results f or 12:11 PM EMPLOYEE BENEFITS DIRECTOR nasopharynx this procedure are in the results section. CALCIUM LEVEL TOTAL Routine 11/17/2022 Adenocarcinoma of Res ults for 12:11 PM EMPLOYEE BENEFITS DIRECTOR nasopharynx this procedure are in the results section. .GLOMERULAR FILTRATION Routine 11/17/2022 Adenocarcinoma of Results for RATE 12:11 PM EMPLOYEE BENEFITS DIRECTOR nasopharynx this procedure are in the results section. SERUM CREATININE Routine 11/17/2022 Adenocarcinoma of Result s for 12:11 PM EMPLOYEE BENEFITS DIRECTOR nasopharynx this procedure are in the results section. ELECTROLYTE PANEL Routine 11/17/2022 Adenocarcinoma of Resul ts for 12:11 PM EMPLOYEE BENEFITS DIRECTOR nasopharynx this procedure are in the results section. BLOOD UREA NITROGEN Routine 11/17/2022 Adenocarcinoma of Res ults for 12:11 PM EMPLOYEE BENEFITS DIRECTOR nasopharynx this procedure are in the results section. GLUCOSE LEVEL Routine 11/17/2022 Adenocarcinoma of Results f or 12:11 PM EMPLOYEE BENEFITS DIRECTOR nasopharynx this procedure are in the results section. PROLACTIN Routine 11/17/2022 Adenocarcinoma of Results fo r 12:11 PM EMPLOYEE BENEFITS DIRECTOR nasopharynx this procedure are in the results section. INSULIN LIKE GROWTH FACTOR Routine 11/17/2022 Adenocarcinoma of Results for 1 12:11 PM EMPLOYEE BENEFITS DIRECTOR nasopharynx this procedure are in the results section. TOTAL T3 Routine 11/17/2022 Adenocarcinoma of Results fo r 12:11 PM EMPLOYEE BENEFITS DIRECTOR nasopharynx this procedure are in the results section. FREE THYROXINE Routine 11/17/2022 Adenocarcinoma of Results for 12:11 PM EMPLOYEE BENEFITS DIRECTOR nasopharynx this procedure are in the results section. THYROID STIMULATING Routine 11/17/2022 Adenocarcinoma of Res ults for HORMONE 12:11 PM EMPLOYEE BENEFITS DIRECTOR nasopharynx this procedure are in the results section. LUTEINIZING HORMONE Routine 11/17/2022 Adenocarcinoma of Res ults for 12:11 PM EMPLOYEE BENEFITS DIRECTOR nasopharynx this procedure are in the results section. FOLLICLE STIMULATING Routine 11/17/2022 Adenocarcinoma of Re sults for HORMONE LEVEL 12:11 PM EMPLOYEE BENEFITS DIRECTOR nasopharynx this procedure are in the results section. TESTOSTERONE LEVEL Routine 11/17/2022 Adenocarcinoma of Resu lts for 12:11 PM EMPLOYEE BENEFITS DIRECTOR nasopharynx this procedure are in the results section. ESTRADIOL LEVEL Routine 11/17/2022 Adenocarcinoma of Results for 12:11 PM EMPLOYEE BENEFITS DIRECTOR nasopharynx this procedure are in the results section. ADRENOCORTICOTROPIC Routine 11/17/2022 Adenocarcinoma of Res ults for HORMONE 12:11 PM EMPLOYEE BENEFITS DIRECTOR nasopharynx this procedure are in the results section. CORTISOL Routine 11/17/2022 Adenocarcinoma of Results fo r 12:11 PM EMPLOYEE BENEFITS DIRECTOR nasopharynx this procedure are in the results section. PROTHROMBIN TIME Routine 11/17/2022 Adenocarcinoma of Result s for 12:11 PM EMPLOYEE BENEFITS DIRECTOR nasopharynx this procedure are in the results section. APTT Routine 11/17/2022 Adenocarcinoma of Results fo r 12:11 PM EMPLOYEE BENEFITS DIRECTOR nasopharynx this procedure are in the results section. COMPLETE BLOOD COUNT W/ Routine 11/17/2022 Adenocarcinoma of DIFFERENTIAL 12:11 PM EMPLOYEE BENEFITS DIRECTOR nasopharynx COMPREHENSIVE METABOLIC Routine 11/17/2022 Adenocarcinoma of PANEL 12:11 PM EMPLOYEE BENEFITS DIRECTOR nasopharynx HEPATITIS C VIRUS AB Routine 11/17/2022 Adenocarcinoma of Re sults for SCREEN W/REFLEX HCV PCR 12:11 PM EMPLOYEE BENEFITS DIRECTOR nasopharynx this procedure are in the results section. PATHOLOGY OUTSIDE Routine 10/16/2022 Results fo r INTERPRETATION this procedur e are in the results section. after 05/18/2022 Results MRI Orbits with and without Contrast (04/22/2023 2:58 PM CDT) Anatomical Region Laterality Modality Head Magnetic Resonance Specimen (Source) Anatomical Collection Method Collection Time Re ceived Time Location / / Volume Laterality 04/22/2023 2:59 PM CDT Impressions 04/22/2023 3:13 PM CDT Marked interval decrease in the enhancin g left nasopharyngeal mass, skull base lesions, and perineural invasion. Residual enhancement is seen in these regions favored to represent treatment effects with follow-up recommended to exclude tumor in this baseline posttreatment MRI. No suspicious lymph nodes. 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 Maxillofacial CT February 11, 2023. Technique: MR of the Neck with and witho ut contrast. Findings: There is marked interval decrease in the T2 hyperintense enhancing soft tissue abnormality that was previously centered within the left nasopharynx. Currently, there is mild asymmetric prominence of the left nasopharynx that is favored to be treatment related. The enhancement along the proximal left mandibular nerve is significantly less conspicuous with less central solid enhancement, which is likely related to positive response to radiation. The suspicious enhancement within the left median nerve has for the most part resolved compatible with treatment response. The subtle enhancement described along the left jugular foramen appears grossly stable and may have represented vascularity versus edith ated perineural invasion. There is no cervical lymphadenopathy. No retropharyngeal lymph nodes are identified. The major salivary glands are unremarkab le. The thyroid is normal. The visualized intracranial structures a re without gross abnormality. The paranasal sinuses are unremarkable. The visualized spine is without signific ant abnormality. Procedure Note Vinay Dickinson MD - 04/22/2023Formattin g of this note might be different from the original. 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 Maxillofacial CT February 11, 2023. Technique: MR of the Neck with and witho ut contrast. Findings: There is marked interval decrease in the T2 hyperintense enhancing soft tissue abnormality that was previously centered within the left nasopharynx. Currently, there is mild asymmetric prominence of the left nasopharynx that is favored to be treatm ent related. The enhancement along the proximal left mandibular nerve is significantly less conspicuous with less central solid enhancement, which is likely related to positive response to radiation. The suspicious enhancement within the left median nerve has for the most part resolved compatible with treatment response. The subtle enhancement described along the left jugular foramen appears grossly stable and may have represented vascularity versus treated perineural in vasion. There is no cervical lymphadenopathy. No retropharyngeal lymph nodes are identified. The major salivary glands are unremarkab le. The thyroid is normal. The visualized intracranial structures a re without gross abnormality. The paranasal sinuses are unremarkable. The visualized spine is without signific ant abnormality. IMPRESSION: Marked interval decrease in the enhancin g left nasopharyngeal mass, skull base lesions, and perineural invasion. Residual enhancement is seen in these regions favored to represent treatment effects with follow-up recommended to exclude tumor in this [facility] posttreatment MRI. No suspicious lymph nodes. Winter Luu MD IMG MRI ORDERABLES .Serum Creatinine (04/22/2023 12:28 PM CDT)Only the most recent of44 results within the time period is included. athologist Signature Creatinine 0.80 0.51 - 0.95 MANSURA mg/dL Comment: Testing performed at [facility], [address] [place] [address] Specimen Anatomical Collection Method Collection Time Receive d Time (Source) Location / / Volume Laterality Blood 04/22/2023 12:28 04/22/2023 PM CDT 12:29 PM CDT Narrative MANSURA - 04/22/2023 1:04 PM CDT Coordinate all on same day. Ok to schedu le 1-2 weeks following 04/14 to coordinate appts Winter Luu MD LAB BLOOD ORDERABLES Performing Organization Address City/State/ZIP Code Phon e Number [place], [place] [id number] [place] [address] (ABNORMAL) .CBC (04/22/2023 12:28 PM CDT)Only the most recent of44 resultswithin the time period is included. athologist Signature WBC 6.5 4.0 - 11.0 MANSURA K/uL Comment: All components of the CBC perfo rmed at [facility], [address] [place] [address] 77 3 RBC 4.39 4.00 - 5.50 M/uL [place]ANSURA Comment: All components of the CBC perfo rmed at [facility], [address] [place] [address] 3 Hgb 14.3 12.0 - 16.0 gm/dL MANSURA Comment: As part of CBC or as an individ ual orderable testing performed at [facility], [address] [place] [address] Hct 43.7 37.0 - 47.0 % MANSURA Comment: As part of CBC testing performe d at [facility], [address] [place] [address]1103 MCV 100 (H) 82 - 98 fL [facility]URA Comment: As part of CBC testing performe d at [facility], [address] [place] [address]92 MCH 32.6 (H) 27.0 - 31.0 pg MANSURA Comment: As part of CBC testing performe d at [facility], [address] [place] [address]30 MCHC 32.7 31.0 - 36.0 gm/dL [facility]URA Comment: As part of CBC testing performe d at [facility], [address] [place] [address]45 RDW-SD 45.6 35.1 - 46.3 fL [place]A Comment: As part of CBC testing performe d at [facility], [address] [place] [address]85 RDW-CV 12.1 12.0 - 15.5 % MANSURA Comment: As part of CBC testing performe d at [facility], [address] [place] [address]32 Platelet count 150 140 - 440 K/uL [facility] Comment: As part of CBC or an individual orderable testing performed at [facility], [address] [place] [address]20 MPV 9.6 4.0 - 10.4 fL [place]A Comment: As part of CBC testing performe d at [facility], [address] [place] [address] Specimen Anatomical Collection Method Collection Time Receive d Time (Source) Location / / Volume Laterality Blood 04/22/2023 12:28 04/22/2023 PM CDT 12:29 PM CDT Narrative MANSURA - 04/22/2023 12:33 PM CDT Coordinate all on same day. Ok to schedu le 1-2 weeks following 14 to coordinate appts Winter Luu MD LAB BLOOD ORDERABLES Performing Organization Address City/State/[place] [address] [place] [address] Glomerular Filtration Rate (04/22/2023 12:28 PM CDT)Only the most recent of44 resultswithin the time period is included. athologist Signature eGFR 86 >=60 MANSURA mL/min/1.73 sq. m Comment: The eGFRcr is [...] fulfill criteria for CKD. [facility], [address] [place] [address] Specimen Anatomical Collection Method Collection Time Receive d Time (Source) Location / / Volume Laterality Blood 04/22/2023 12:28 04/22/2023 PM CDT 12:29 PM CDT Narrative MANSURA - 04/22/2023 1:04 PM CDT Coordinate all on same day. Ok to schedu le 1-2 weeks following 04/14 to coordinate appts Winter Luu MD LAB BLOOD ORDERABLES Performing Organization Address City/State/ZIP Code Phon e Number [place], [place] [phone] [place] [address] (ABNORMAL) IGF-1 (04/22/2023 12:28 PM CDT)Only the most recent of2 resultswithin the time period is included. athologist [facility] Insulin-Like 226 (H) 37 - 208 [facility] Growth Factor ng/mL [facility] IGF Z-score 2.33 -2.0 - 2.0 [facility] Comment: ADDITIONAL INFORMATIO N This test was developed and its performa nce characteristics determined by [facility] in a manner co nsistent with CLIA requirements. This test has not been sisi ared or approved by the U.S. Food and Drug Administration. Test Performed by: [facility] - [facility] [address] [address] 86 [employer] Software Engineer: Yonathan Guzman M.D. Ph. D.; CLIA# [id number] Specimen Anatomical Collection Method Collection Time Receive d Time (Source) Location / / Volume Laterality Blood 04/22/2023 12:28 04/22/2023 PM CDT 12:29 PM CDT Narrative [facility] - 3:42 PM CDT Coordinate all on same day. Ok to schedule 1-2 weeks following 04/14 to coordinate appts 8am Fasting Winter Luu MD LAB BLOOD ORDERABLES Performing Organization Address City/State/ZIP Code Phon e Number [facility] CANCER Unless otherwise noted, [place] [address] KENVIR all lab tests performed by: Division of Pathology and Laboratory Medicine [address] (ABNORMAL) ACTH (04/22/2023 12:28 PM CDT)Only the most recent of2 resultswithin the time period is included. athologist Signature ACTH 3 (L) 7 - 63 pg/mL MANSURA Comment: Results greater than 1826 pg/mL may not be reliable due to matrix effect with extended dilution as it exceeds the customer service associate's recommended limit. ACTH reference intervals are established for the morni ng hours from 7-10 am. Due to the circad katie rhythm of ACTH levels in plasma, the sample col lection time must be noted. Caution should be exercised when interpreting such values and done in conjunction with clinical context. Testing performed at [facility], [address] [place] [address], [place] [address] Specimen Anatomical Collection Method Collection Time Receive d Time (Source) Location / / Volume Laterality Blood 04/22/2023 12:28 04/22/2023 PM CDT 12:29 PM CDT Narrative MANSURA - 04/22/2023 1:05 PM CDT Coordinate all on same day. Ok to schedule 1-2 weeks following 04/14 to coordinate appts 8am Fasting Winter Luu MD LAB BLOOD ORDERABLES Performing Organization Address City/State/[place] [address] [address] [facility] Prolactin (04/22/2023 12:28 PM CDT)Only the most recent of2 resultswithin the time period is included. athologist Signature Prolactin 10.9 4.8 - 23.3 [facility] ng/mL [facility] Comment: Results greater than 4700.0 ng/ mL may not be reliable due to matrix effect with extended dilution as it exceeds the customer service associate s recommended limit. Caution should be e xercised when interpreting such values and done in conjunction with clinical contex t. Specimen Anatomical Collection Method Collection Time Receive d Time (Source) Location / / Volume Laterality Blood 04/22/2023 12:28 04/22/2023 8:43 PM CDT PM CDT Narrative [facility] - 9:07 PM CDT Coordinate all on same day. Ok to schedule 1-2 weeks following 04/14 to coordinate appts 8am Fasting Winter Luu MD LAB BLOOD ORDERABLES Performing Organization Address City/State/ZIP Code Phon e Number [facility] CANCER Unless otherwise noted, [place] [address] K[place]IR all lab tests performed by: Division of Pathology and Laboratory Medicine [address] Estradiol (Women) (04/22/2023 12:28 PM CDT)Only the most recent of2 results within the time period is included. P athologist Signature Estradiol <11 pg/mL [facility] Comment: Reference Ranges: Adult Females: Follicular Phase [...] (Source) Location / / Volume Laterality Blood 04/22/2023 12:28 04/22/2023 8:43 PM CDT PM CDT Narrative [facility] - 9:07 PM CDT Coordinate all on same day. Ok to schedule 1-2 weeks following 04/14 to coordinate appts 8am Fasting Winter Luu MD LAB BLOOD ORDERABLES Performing Organization Address City/State/ZIP Code Phon e Number [facility] Unless otherwise noted, [place] [address] K[place]IR all lab tests performed by: Division of Pathology and Laboratory Medicine [address] (ABNORMAL) Differential (04/22/2023 12:28 PM CDT)Only the most recent of44 resultswithin the time period is included. athologist Signature Neutrophil % 86.1 (H) 42.0 - [facility] 66.0 % Comment: All components of the Different ial performed at [facility], [address] [place] [address] Lymphocyte % 10.9 (L) 24.0 - 44.0 % MANSURA Comment: As part of the Differential hailey ting performed at [facility], [address] [place] [address] Monocyte % 2.3 2.0 - 7.0 % M[facility]A Comment: As part of the Differential hailey ting performed at [facility], [address] [place] [address] Eosinophil % 0.2 (L) 1.0 - 4.0 % M[facility]URA Comment: As part of the Differential hailey ting performed at [facility], [address] [place] [address]44 Basophil % 0.2 0.0 - 1.0 % [facility]URA Comment: As part of the Differential hailey ting performed at [facility], [address] [place] [address] IGRE % 0.3 0.0 - 0.4 % MANSURA Comment: IGRE % count includes Metamyelocytes, My elocytes, and Promyelocytes. As part of the Differential testing perf ormed at [facility], [address] [place] [address] Neutrophil Abs 5.62 1.70 - 7.30 K/uL [facility] ITY Comment: As part of the Differential hailey ting performed at [facility], [address] [place] [address] Lymphocyte Abs 0.71 (L) 1.00 - 4.80 K/uL [facility] ITAlex Comment: As part of the Differential hailey ting performed at [facility], [address] [place] [address] Monocyte Abs 0.15 0.08 - 0.70 K/uL [facility] CIT Y Comment: As part of the Differential hailey ting performed at [facility], [address] [place] [address] Eosinophil Abs 0.01 (L) 0.04 - 0.40 K/uL [facility] ITAlex Comment: As part of the Differential hailey ting performed at [facility], [address] [place] [address] Basophil Abs 0.01 0.00 - 0.10 K/uL [facility] CIT Y Comment: As part of the Differential hailey ting performed at [facility], [address] [place] [address] IG Abs 0.02 0.00 - 0.04 K/uL [place]A Comment: As part of the Differential hailey ting performed at [facility], [address] [place] [address] Specimen Anatomical Collection Method Collection Time Receive d Time (Source) Location / / Volume Laterality Blood 04/22/2023 12:28 04/22/2023 PM CDT 12:29 PM CDT Narrative MANSURA - 04/22/2023 12:33 PM CDT Coordinate all on same day. Ok to schedu le 1-2 weeks following 04/14 to coordinate appts Winter Luu MD LAB BLOOD ORDERABLES Performing Organization Address City/State/[place] [address] [place] [address] BUN (04/22/2023 12:28 PM CDT)Only the most recent of44 resultswithin the time period is included. athologist Signature BUN 12 6 - 23 mg/dL [facility]A Comment: [facility], [address] [place] [address] Specimen Anatomical Collection Method Collection Time Receive d Time (Source) Location / / Volume Laterality Blood 04/22/2023 12:28 04/22/2023 PM CDT 12:29 PM CDT [facility] - 04/22/2023 1:04 PM CDT Coordinate all on same day. Ok to schedu le 1-2 weeks following 04/14 to coordinate appts Winter Luu MD LAB BLOOD ORDERABLES Performing Organization Address City/State/ZIP Code Phon e Number [place], [place] [phone] [place] [address] Total T3 (04/22/2023 12:28 PM CDT)Only the most recent of2 resultswithin the time period is included. [facility] Total 117 80 - 200 MANSURA ng/dL Comment: Performed at [facility], [address] [place] [address] Specimen Anatomical Collection Method Collection Time Receive d Time (Source) Location / / Volume Laterality Blood 04/22/2023 12:28 04/22/2023 PM CDT 12:29 PM CDT [facility] - 04/22/2023 1:04 PM CDT Coordinate all on same day. Ok to schedule 1-2 weeks following 04/14 to coordinate appts 8am Fasting Winter Luu MD LAB BLOOD ORDERABLES Performing Organization Address City/State/[place] [address] [place] [address] TSH (04/22/2023 12:28 PM CDT)Only the most recent of3 resultswithin the time period is included. athologist Signature TSH 1.06 0.27 - 4.20 MANSURA mcunit/mL Comment: Testing performed at [facility], [address] [place] [address] Specimen Anatomical Collection Method Collection Time Receive d Time (Source) Location / / Volume Laterality Blood 04/22/2023 12:28 04/22/2023 PM CDT 12:29 PM CDT [facility] - 04/22/2023 1:04 PM CDT Coordinate all on same day. Ok to schedule 1-2 weeks following 04/14 to coordinate appts 8am Fasting Winter Luu MD LAB BLOOD ORDERABLES Performing Organization Address City/State/ZIP Code Phon e Number [place], [place] [phone] [place] [address] Free T4 (04/22/2023 12:28 PM CDT)Only the most recent of3 resultswithin the time period is included. athologist Signature T4 Free 1.21 0.93 - 1.70 M[facility]A ng/dL Comment: Testing performed at [facility], [address] [place] [address] Specimen Anatomical Collection Method Collection Time Receive d Time (Source) Location / / Volume Laterality Blood 04/22/2023 12:28 04/22/2023 PM CDT 12:29 PM CDT [facility] - 04/22/2023 1:04 PM CDT Coordinate all on same day. Ok to schedule 1-2 weeks following 04/14 to coordinate appts 8am Fasting Winter Luu MD LAB BLOOD ORDERABLES Performing Organization Address City/State/ZIP Code Phon e Number [place], [place] [id number] [place] [address] LH (04/22/2023 12:28 PM CDT)Only the most recent of2 resultswithin the time period is included. athologist Signature LH 8.7 mIU/mL [facility] Comment: Female Luteinizing Hormone Reference Ran ges: LOW HIGH Follicular 2.4 12.6 Ovulation 14.0 95.6 Luteal 1.0 11.4 Postmenopause 7.7 58.5 Specimen Anatomical Collection Method Collection Time Receive d Time (Source) Location / / Volume Laterality Blood 04/22/2023 12:28 04/22/2023 8:43 PM CDT PM CDT Narrative [facility] - 9:07 PM CDT Coordinate all on same day. Ok to schedule 1-2 weeks following 04/14 to coordinate appts 8am Fasting Winter Luu MD LAB BLOOD ORDERABLES Performing Organization Address City/State/[facility] Code Phon e Number [facility] Unless otherwise noted, [address] all lab tests performed by: Division of Pathology and Laboratory Medicine Brian Hodges FSH (04/22/2023 12:28 PM CDT)Only the most recent of2 resultswithin the time period is included. P athologist Signature FSH 30.1 mIU/mL [facility] Comment: Female Follicle Stimulating Hormone Refe rence Ranges: L OW HIGH Follicular 3.5 12.5 Ovulation 4.7 21.5 Luteal 1.7 7.7 Postmenopause 25.8 134.8 Specimen Anatomical Collection Method Collection Time Receive d Time (Source) Location / / Volume Laterality Blood 04/22/2023 12:28 04/22/2023 8:43 PM CDT PM CDT Narrative [facility] - 9:07 PM CDT Coordinate all on same day. Ok to schedule 1-2 weeks following 04/14 to coordinate appts 8am Fasting Winter Luu MD LAB BLOOD ORDERABLES Performing Organization Address City/State/ZIP Code Phon e Number [facility] Unless otherwise noted, [address] all lab tests performed by: Division of Pathology and Laboratory Medicine Brian Hodges (ABNORMAL) Total Cortisol (04/22/2023 12:28 PM CDT)Only the most recent of2 resultswithin the time period is included. P athologist Signature Cortisol, 1.81 (L) 4.80 - [place] Total 19.50 mcg/dL Comment: Cortisol reference intervals [...] (2.5 - 11.9) Testing performed at [facility], [address] [place] [address] Specimen Anatomical Collection Method Collection Time Receive d Time (Source) Location / / Volume Laterality Blood 04/22/2023 12:28 04/22/2023 PM CDT 12:29 PM CDT Narrative [facility] - 04/22/2023 1:04 PM CDT Coordinate all on same day. Ok to schedule 1-2 weeks following 04/14 to coordinate appts 8am Fasting Winter Luu MD LAB BLOOD ORDERABLES Performing Organization Address City/State/[place] [address] [place] [address] (ABNORMAL) Electrolyte Panel (04/22/2023 12:28 PM CDT)Only the most recent of45 resultswithin the time period is included. athologist Signature Sodium Lvl 135 (L) 136 - 145 [facility] mEq/L Comment: Testing performed at [facility], [address] [place] [address] Potassium Lvl 4.7 3.5 - 5.1 mEq/L [facility] CIT Y Comment: Testing performed at [facility], [address] [place] [address] Chloride 96 (L) 98 - 107 mEq/L [facility] Comment: Testing performed at [facility], [address] [place] [address] CO2 21 (L) 22 - 29 mEq/L [facility] Comment: Testing performed at [facility], [address] [place] [address] Anion Gap 18 (H) 4 - 14 mEq/L [facility] Comment: Testing performed at [facility], [address] [place] [address] Specimen Anatomical Collection Method Collection Time Receive d Time (Source) Location / / Volume Laterality Blood 04/22/2023 12:28 04/22/2023 PM CDT 12:29 PM CDT [facility] - 04/22/2023 1:04 PM CDT Coordinate all on same day. Ok to schedu le 1-2 weeks following 04/14 to coordinate appts Winter Luu MD LAB BLOOD ORDERABLES Performing Organization Address City/[facility]/ZIP Code Phon e Number [place], [place] [address] [place] [address] Fractionated Bilirubin (03/11/2023 11:15 AM CDT)Only the most recent of24 resultswithin the time period is included. athologist Signature Bili Total <0.3 <=1.2 mg/dL [facility] Comment: Direct and indirect bilirubin will not b e reported when Total bilirubin result is <0.3 mg/dL Indocyanine Green (ICG) may cause falsel y elevated bilirubin results. Total and direct bilirubin must not be measured from samples containing indocyanine green. False elevation of total bilirubin can b e seen in patients with IgG concentrations above 28 g/L. Testing performed at [facility], [address] [place] [address] Specimen Anatomical Collection Method Collection Time Receive d Time (Source) Location / / Volume Laterality Blood 03/11/2023 11:15 03/11/2023 AM CDT 11:16 AM CDT [facility] - 03/11/2023 11:40 AM CDT Follow up at 1120, lab prior and infusio n after Lorena Hdez APRN LAB BLOOD ORDERABLES Performing Organization Address City/State/ZIP Code Phon e Number [place], [place] [id number] [place] [address] (ABNORMAL) ALT (03/11/2023 11:15 AM CDT)Only the most recent of24 resultswithin the time period is included. athologist Signature ALT 40 (H) <=33 U/L [facility] Comment: Testing performed at [facility], [address] [place] [address] Specimen Anatomical Collection Method Collection Time Receive d Time (Source) Location / / Volume Laterality Blood 03/11/2023 11:15 03/11/2023 AM CDT 11:16 AM CDT Narrative [facility] - 03/11/2023 11:40 AM CDT Follow up at 1120, lab prior and infusio n after Lorena Hdez APRN LAB BLOOD ORDERABLES Performing Organization Address City/[facility]/ZIP Code Phon e Number [address] Aspartate Aminotransferase (03/11/2023 11:15 AM CDT)Only the most recent of24 resultswithin the time period is included. athologist Signature AST 26 <=32 U/L [facility] Comment: Testing performed at [facility], [address] [place] [address] Specimen Anatomical Collection Method Collection Time Receive d Time (Source) Location / / Volume Laterality Blood 03/11/2023 11:15 03/11/2023 AM CDT 11:16 AM CDT [facility] - 03/11/2023 11:40 AM CDT Follow up at 1120, lab prior and infusio n after Lorena Hdez APRN LAB BLOOD ORDERABLES Performing Organization Address City/[facility]/ZIP Code Phon e Number [address] Total Protein (03/11/2023 11:15 AM CDT)Only the most recent of24 resultswithin the time period is included. athologist [facility] Total Protein 7.0 6.4 - 8.3 [facility] g/dL Comment: Testing performed at [facility], [address] [place] [address] Specimen Anatomical Collection Method Collection Time Receive d Time (Source) Location / / Volume Laterality Blood 03/11/2023 11:15 03/11/2023 AM CDT 11:16 AM CDT [facility] - 03/11/2023 11:40 AM CDT Follow up at 1120, lab prior and infusio n after Lorena Hdez APRN LAB BLOOD ORDERABLES Performing Organization Address City/[facility]/ZIP Code Phon e Number [address] (ABNORMAL) Alkaline Phosphatase (03/11/2023 11:15 AM CDT)Only the most recent of 24 resultswithin the time period is included. P athologist Signature Alk Phos 107 (H) 35 - 104 [facility] U/L Comment: Testing performed at [facility], [address] [place] [address] Specimen Anatomical Collection Method Collection Time Receive d Time (Source) Location / / Volume Laterality Blood 03/11/2023 11:15 03/11/2023 AM CDT 11:16 AM CDT [facility] - 03/11/2023 11:40 AM CDT Follow up at 1120, lab prior and infusio n after Lorena Hdez APRN LAB BLOOD ORDERABLES Performing Organization Address City/[facility]/ZIP Code Phon e Number [address] (ABNORMAL) Magnesium Level (03/11/2023 11:15 AM CDT)Only the most recent of42 resultswithin the time period is included. athologist Signature Magnesium 1.4 (L) 1.6 - 2.6 [facility] mg/dL Comment: Testing performed at [facility], [address] [place] [address] Specimen Anatomical Collection Method Collection Time Receive d Time (Source) Location / / Volume Laterality Blood 03/11/2023 11:15 03/11/2023 AM CDT 11:16 AM CDT [facility] - 03/11/2023 11:40 AM CDT Follow up at 1120, lab prior and infusio n after Lorena Kayla Hdez DESCRIPTIVE CATALOG LIBRARIAN LAB BLOOD ORDERABLES Performing Organization Address City/State/[place] [address] [place] [address] (ABNORMAL) Glucose Level (03/11/2023 11:15 AM CDT)Only the most recent of43 resultswithin the time period is included. athologist Signature Glucose Level 324 (H) 70 - 99 [facility] mg/dL Comment: Effective 05/27/16, the glucose reference intervals have been updated based on [place] Diabetes Association guidelines (Standards of Medical Care in Diabetes 2016. Diabetes Care 2016; 39: S13-S22). Fasting blood glucose: Normal: 70-99 mg/dL Impaired fasting glucose (increased risk for diabetes or pre-diabetes): 100- 125 mg/dL Diabetes mellitus: >/=126 mg/dL Random blood glucose: Normal: 70-199 mg/dL Note: Random glucose >100 mg/dL is assoc iated with increased risk for diabetes [facility], [address] [place] [address] Specimen Anatomical Collection Method Collection Time Receive d Time (Source) Location / / Volume Laterality Blood 03/11/2023 11:15 03/11/2023 AM CDT 11:16 AM CDT Narrative [facility] - 03/11/2023 11:40 AM CDT Follow up at 1120, lab prior and infusio n after Lorena Hdez DESCRIPTIVE CATALOG LIBRARIAN LAB BLOOD ORDERABLES Performing Organization Address City/State/[place] [address] [place] [address] Calcium Level (03/11/2023 11:15 AM CDT)Only the most recent of43 resultswithin the time period is included. athologist Signature Calcium Lvl 9.3 8.4 - 10.2 [facility] mg/dL Comment: [facility], [address] [place] [address] Specimen Anatomical Collection Method Collection Time Receive d Time (Source) Location / / Volume Laterality Blood 03/11/2023 11:15 03/11/2023 AM CDT 11:16 AM CDT Narrative [place] - 03/11/2023 11:40 AM CDT Follow up at 1120, lab prior and infusio n after Lorena Hdez BORIS LAB BLOOD ORDERABLES Performing Organization Address City/State/[place] [address] [place] [address] Albumin Level (03/11/2023 11:15 AM CDT)Only the most recent of24 resultswithin the time period is included. athologist [facility] Albumin Lvl 3.9 3.5 - 5.2 [facility] gm/dL Comment: Testing performed at [facility], [address] [place] [address] Specimen Anatomical Collection Method Collection Time Receive d Time (Source) Location / / Volume Laterality Blood 03/11/2023 11:15 03/11/2023 AM CDT 11:16 AM CDT [facility] - 03/11/2023 11:40 AM CDT Follow up at 1120, lab prior and infusio n after Lorena Hdez BOR[facility] LAB BLOOD ORDERABLES Performing Organization Address City/[facility]/ZIP Code Phon e Number [place], [place] [phone] [place] [address] (ABNORMAL) POC Glucose Screen (02/16/2023 12:02 PM [...] Sample Type Capillary POC TELCOR Performing Lab [facility] POC TELCO R Comment: [facility] Clinical Lab, [employer] [facility], [place] [address]; Lab Direct or: Chula Jacob MD; Waived Point of Care Testing - Gabrielle Mueller MD Specimen Anatomical Collection Method Collection Time Receive d Time (Source) Location / / Volume Laterality Blood 02/16/2023 12:02 02/16/2023 PM CDT 12:02 PM CDT Ashleigh Rangel MD POCT ORDERABLES - [facility] [place] Performing Organization Address City/[facility] Phon e Number POC TELCOR Unless otherwise noted, [place] [address] lab tests performed by: Division of Pathology and Laboratory Medicine [address] [place] [address] (ABNORMAL) Anti-Xa Level (02/16/2023 11:13 AM CDT) P athologist Signature Anti-Xa Level 1.45 (H) 0.00 - [place] 0.10 [facility] unit/mL [facility] Comment: Anti-Xa Level (Heparin [...] 2008; 133;[id number] Hep Type Enoxaparin [facility] Specimen Anatomical Collection Method Collection Time Receive d Time (Source) Location / / Volume Laterality Blood 02/16/2023 11:13 02/16/2023 AM CDT 11:21 AM CDT Narrative [facility] - 1:11 PM CDT Nurse please coordinate with lab to draw n Anti-Xa level (low molecular weight heparin level) 4 hours after 02/16/23 morning kourtney xaparin dose is given. Angeli Wang MD LAB BLOOD ORDERABLES Performing Organization Address City/State/[facility] Phon e Number [facility] CANCER Unless otherwise noted, [address] all lab tests performed by: Division of Pathology and Laboratory Medicine [address] [place] [address] Phosphorus Level (02/16/2023 6:15 AM CDT)Only the most recent of40 resultswithin the time period is included. athologist Signature Phosphorus 4.3 2.5 - 4.5 [facility] mg/dL [facility] Specimen Anatomical Collection Method Collection Time Receive d Time (Source) Location / / Volume Laterality Blood 02/16/2023 6:15 AM 3 6:59 CDT AM CDT DEEPTI Harrell APRN LAB BLOOD ORDERABLES Performing Organization Address [facility] Phon e Number [facility] CANCER Unless otherwise noted, [address] all lab tests performed by: Division of Pathology and Laboratory Medicine [address] [place] [address] General Laboratory Add-On Test (02/12/2023 9:33 AM CDT)Only the most recent of4 resultswithin the time period is included. [facility] gist Method Time Signature Ordered Test Added [facility] Test Needed procalcitonin [facility] Specimen Anatomical Collection Method Collection Time Receive d Time (Source) Location / / Volume Laterality Existing 02/12/2023 9:33 AM 3 9:34 CDT AM CDT Kimberli GALE LAB BLOOD ORDERABLES Performing Organization Address City/[facility] Phon e Number [facility] CANCER Unless otherwise noted, [address] all lab tests performed by: Division of Pathology and Laboratory Medicine [address] [place] [address] [place] (ABNORMAL) Procalcitonin (02/12/2023 5:34 AM CDT)Only the most recent of4 resultswithin the time period is included. athologist Signature Procalcitonin 0.38 (H) <=0.08 [facility] Comment: Procalcitonin > 2.00 ng/mL: [...] with extended dilution as it exceeds the customer service associate's recommended limit. Caution should be exercised when interpreting such values and done in conjunction with clinical context. Specimen Anatomical Collection Method Collection Time Receive d Time (Source) Location / / Volume Laterality Blood 02/12/2023 5:34 AM 6:18 CDT AM CDT DEEPTI Harrell APRN LAB BLOOD ORDERABLES Performing Organization Address City/State/ZIP Code Phon e Number [facility] Unless otherwise noted, [address] all lab tests performed by: Division of Pathology and Laboratory Medicine [address] [place] [address] CT Maxillofacial Area with Contrast (02/11/2023 4:15 [...] with the final report. Angeli Wang MD IM CT ORDERABLES Creatine Kinase (02/09/2023 5:37 AM CDT)Only the most recent of2 resultswithin the time period is included. P athologist Signature CK 125 26 - 192 [facility] U/L [facility] Specimen Anatomical Collection Method Collection Time Receive d Time (Source) Location / / Volume Laterality Blood 02/09/2023 5:37 AM 3 6:08 CDT AM CDT Shelby GALE LAB BLOOD ORDERABLES Performing Organization Address City/State/ZIP Code Phon e Number [facility] Unless otherwise noted, [address] all lab tests performed by: Division of Pathology and Laboratory Medicine [employer] US Arm Venous Doppler Bilateral (02/08/2023 6:28 [...] PM CDT Examination: US ARM VENOUS DOPPLER BILAT ERA, 02/08/2023 6:28 PM Clinical History: Adenoid cystic [...] - 02/08/2023 Examination: US ARM VENOUS DOPPLER BILAT ERAL, 02/08/2023 6:28 PM Clinical History: Adenoid cystic [...] volumes were not performed in this [facility]. Cardiac Mechanics/Speckle Tracking Imagi ng: Speckle tracking imaging was not perform ed in this study. (Impraise Study). Diastology: Indeterminate. Right Ventricle: The right [...] 6.0 cm2 LVOT diam: 1.9 cm EDV(MOD-A4C): 209 .8 ml ESV(MOD-A4C): 85.0 ml LVOT area: 3.0 cm2 EF(MOD-A4C): 59.5 % EDV(MOD-A2C): 155.4 ml ESV(MOD-A2C): 53.9 ml EDV(MOD-bp): 1 90.6 ml EF(MOD-A2C): 65.3 % ESV(MOD-bp): 71.5 ml [...] MV dec slope: 421.2 cm/sec2 Ao V2 V TI: 32.7 cm NGOZI(I,D): 1.9 cm2 NGOZI(V,D): 1.7 [...] cm/sec TR max alejandra: 242.7 cm/sec RAP systol e: 3.0 mmHg TR max P.6 mmHg RVSP(TR): 26.6 mmHg NGOZI Index (I,D): 0.80 NGOZI Index (V,D) : 0.74 Dimensionless Index: 0.58 E/e' (avg) : 11.6 E/e' (lat): 9.2 E/e' (sept): 15.7 Thao Soria MD CV ECHO ORDERABLES Performing Organization Address City/State/ZIP [...] purpose. For additional information please refer to http://[email or web address]/fa [email or web address] (This link is being provided for informa tional/ educational purposes only.) The performance of this assay has not be en clinically validated in patients less than 2 years old. Lab test performed by: Lab Mnemonic: [facility] [employer] [address] [id number] JOSE ELIAS MELÉNDEZ MD Specimen Anatomical Collection Method Collection Time Receive d Time (Source) Location / / Volume Laterality Blood 02/07/2023 6:52 AM 7:22 CDT AM CDT Thao Soria MD LAB BLOOD ORDERABLES Performing Organization Address [facility] Phon e Number [facility] Hepatitis C Virus Ab (02/07/2023 6:52 AM CDT)Only the most recent of2 results within the time period is included. [facility] Signature HCVAb. Non Reactive Non Reactive [facility] Comment: Antibody detection in the immunocompromi sed [...] MD LAB BLOOD ORDERABLES Performing Organization Address [facility] Phon e Number [facility]CER Unless otherwise noted, [address] all lab tests performed by: Division of Pathology and Laboratory Medicine [facility] [place] Hepatitis B Total Ig Core Ab (SCREENING) (anti-HBc total Ig; HBcAb total Ig) (02/07/2023 6:52 AM CDT) [facility] Signature HBcAb. Non Reactive Non Reactive [facility] Specimen Anatomical Collection Method Collection Time Receive d Time (Source) Location / / Volume Laterality Blood 02/07/2023 6:52 AM 3 8:32 CDT AM CDT Thao Soria MD LAB BLOOD ORDERABLES Performing Organization Address [facility] Phon e Number [facility] Unless otherwise noted, [address] all lab tests performed by: Division of Pathology and Laboratory Medicine [address] [place] [address] [place] Hepatitis B Surface Ag (02/07/2023 6:52 AM CDT) [facility] Signature HBsAg. Non Reactive Non Reactive [facility] Specimen Anatomical Collection Method Collection Time Receive d Time (Source) Location / / Volume Laterality Blood 02/07/2023 6:52 AM 3 8:32 CDT AM CDT Thao Soria MD LAB BLOOD ORDERABLES Performing Organization Address [facility] Phon e Number [facility] Unless otherwise noted, [address] all lab tests performed by: Division of Pathology and Laboratory Medicine [address] Blood Culture (02/07/2023 6:52 AM CDT)Only the most recent of6 resultswithin the time period is included. P athologist Signature Final Report No growth [facility] Specimen Anatomical Collection Method Collection Time Receive d Time (Source) Location / / Volume Laterality Blood 02/07/2023 6:52 AM 3 7:43 (Venipuncture-Ri CDT AM CDT ght) Comment: arm Tim Nguyen MD MICROBIOLOGY - GENERAL ORDER [place] Performing Organization Address City/[facility] Phon e Number [facility] Unless otherwise noted, [address] all lab tests performed by: Division of Pathology and Laboratory Medicine [address] [facility] Transferrin with TIBC (02/07/2023 6:52 AM CDT) P athologist Signature Transferrin 205 200 - 360 [facility] mg/dL [facility] TIBC 287 250 - 450 [facility] mcg/dL [facility] Specimen Anatomical Collection Method Collection Time Receive d Time (Source) Location / / Volume Laterality Blood 02/07/2023 6:52 AM 3 7:07 CDT AM CDT Thao Soria MD LAB BLOOD ORDERABLES Performing Organization Address City/[facility]/ZIP Code Phon e Number [facility] Unless otherwise noted, [address] all lab tests performed by: Division of Pathology and Laboratory Medicine [employer] [place] Iron Level (02/07/2023 6:52 AM CDT) P athologist Signature Iron 51 37 - 145 [facility] mcg/[facility] Specimen Anatomical Collection Method Collection Time Receive d Time (Source) Location / / Volume Laterality Blood 02/07/2023 6:52 AM 3 7:07 CDT AM CDT Thao Soria MD LAB BLOOD ORDERABLES Performing Organization Address City/[facility] Phon e Number [facility] Unless otherwise noted, [address] all lab tests performed by: Division of Pathology and Laboratory Medicine [address] [place] (ABNORMAL) Hemoglobin A1c (02/07/2023 6:52 AM CDT)Only the most recent of2 resultswithin the time period is included. athologist [facility] A1C 10.2 (H) 4.3 - 5.6 % [facility] Comment: HbA1c values >=6.5% are diagnostic of di abetes mellitus. Diagnosis should be confirmed by repeat testing. Therapeutic Action suggested: >8.0% HbA1 c; Goal of therapy: <7.0% HbA1c Specimen Anatomical Collection Method Collection Time Receive d Time (Source) Location / / Volume Laterality Blood 02/07/2023 6:52 AM 3 7:09 CDT AM CDT Thao Soria MD LAB BLOOD ORDERABLES Performing Organization Address City/[facility] Phon e Number [facility] Unless otherwise noted, [address] all lab tests performed by: Division of Pathology and Laboratory Medicine [address] [place] (ABNORMAL) Ferritin Level (02/07/2023 6:52 AM CDT) [facility] Ferritin Lvl 320 (H) 13 - 150 [facility] ng/mL [facility] Specimen Anatomical Collection Method Collection Time Receive d Time (Source) Location / / Volume Laterality Blood 02/07/2023 6:52 AM 3 7:07 CDT AM CDT Thao Soria MD LAB BLOOD ORDERABLES Performing Organization Address City/[facility] Phon e Number [facility] CANCER Unless otherwise noted, [address] all lab tests performed by: Division of Pathology and Laboratory Medicine [address] (ABNORMAL) Lipid Panel (02/07/2023 6:52 AM CDT) athologist [facility] Chol 137 <=199 mg/dL [facility] Comment: ATP III Classification of Total Choleste rol Primary Target of Therapy (in mg/dL): <200 Desirable 200-239 Borderline high >=240 High Trig 184 (H) <=149 mg/dL [facility] Comment: ATP III Classification of Serum Triglyce rides Primary Target of Therapy (in mg/dL): <150 Normal 150-199 Borderline high 200-499 High >=500 Very high Non-fasting triglycerides >200 mg/dL may be followed up with a fasting Lipid Panel. Calculated LDL-C may be falsely decreased when non-fasting triglycerides >200 mg/dL. HDL 27 (L) >=40 mg/dL [facility] LDL 73 <=100 mg/dL [facility] Comment: ATP III Classification of LDL Cholestero l Primary Target of Therapy (in mg/dL): <100 Optimal 100-129 Near optimal/above optimal 130-159 Borderline high 160-189 High >=190 Very high VLDL 37 mg/dL [facility] Specimen Anatomical Collection Method Collection Time Receive d Time (Source) Location / / Volume Laterality Blood 02/07/2023 6:52 AM 7:07 CDT AM CDT Thao Soria MD LAB BLOOD ORDERABLES Performing Organization Address City/State/ZIP Code Phon e Number [facility]CER Unless otherwise noted, [place], [place] [id number] [place] [address] all lab tests performed by: Division of Pathology and Laboratory Medicine [address] [place] [address] Clostridium Difficile DNA Path Review (02/07/2023 5:18 AM CDT) Component Value Ref Test Analysis Performed At [facility] gist Range Method Time Signature C diff DNA LA Reviewed and Electronically signed by Pathologist: [place] MD PATRICIA CHAVEZ MD #[id number] [facility] Comment: C. difficile Toxin DNA (Primary Method) [...] for repeat testing. PATRICIA CHAVEZ MD - [id number] Dictated by: PATRICIA CHAVEZ MD - [id number] Dictated Date/Time: 02.07.2023 16:35 PM CDT Transcribed Date/Time: 02.07.2023 16:35 PM CDT Electronically Signed By: MD Suzie MARSHALL [id number] on 02.07.2023 16:35 PM Specimen Anatomical Collection Method Collection Time Receive d Time (Source) Location / / Volume Laterality Stool 02/07/2023 5:18 AM 3 8:07 CDT AM CDT Thao Soria MD MICROBIOLOGY - GENERAL ORDER GODWIN Performing Organization Address City/[facility] Code Phon e Number NH [facility] Unless otherwise noted, [address] all lab tests performed by: Division of Pathology and Laboratory Medicine Brian Hodges Clostridium Difficile DNA Assay (02/07/2023 5:18 AM CDT) [facility] gist Method Time [facility] C difficile DNA Negative Negative NH [facility] C difficle Toxin Test Not Negative NH EIA Performed [facility] C difficile C. difficile NH Interpretation DNA [facility] CANCER was negative CENTER making C. difficile infection highly unlikely in this patient. EIA not performed. Specimen Anatomical Collection Method Collection Time Receive d Time (Source) Location / / Volume Laterality Stool 02/07/2023 5:18 AM 3 6:14 CDT AM CDT Thao Soria MD MICROBIOLOGY - GENERAL ORDER GODWIN Performing Organization Address City/[facility]/ZIP Code Phon e Number [place] [facility] Unless otherwise noted, [address] all lab tests performed by: Division of Pathology and Laboratory Medicine Brian Hodges Gastrointestinal Multiplex Panel (02/07/2023 5:16 AM CDT) Component Value Ref Range Test Analysis Performed Pathologis t Method Time At Signature Campylobacter Not Detected Not NH Detected [facility] C difficile DNA (GI Refer to NH Multi Panel) separate C. KULWANT difficile DNA CANCER Assay for CENTER results Plesiomonas Not Detected Not NH shigelloides Detected [facility] Salmonella Not Detected Not NH Detected [facility] Vibrio Not Detected Not NH Detected [facility] Vibrio cholerae Not Detected Not NH Detected [facility] Yersinia Not Detected Not NH enterocolitica Detected [facility] Enteroaggregative E. Not Detected Not [place] coli (EAEC) Detected [facility] Enteropathogenic E. Not Detected Not [place] coli (EPEC) Detected [facility] Enterotoxigenic E. Not Detected Not [place] coli (ETEC) Detected [facility] Shiga-like Not Detected Not [place] toxin-producing E. Detected [facility] ([facility] E. coli O157 Not Not CARLA GRIFFIN Applicable Detected [facility] Shigella/Enteroinvas Not Detected Not CARLA GRIFFIN rosales E. coli (EIEC) Detected [facility] Cryptosporidium Not Detected Not [place] MD Detected [facility] Cyclospora Not Detected Not NH cayetanensis Detected [facility] Entamoeba Not Detected Not [place] histolytica Detected [facility] Giardia lamblia Not Detected Not [place] Detected [facility] Adenovirus F 40/41 Not Detected Not [place] MD Detected [facility] Astrovirus Not Detected Not [place] Detected [facility] Norovirus GI/GII Not Detected Not [place] Detected [facility] Rotavirus A Not Detected Not [place] MD Detected [facility] Sapovirus (I, II, IV Not Detected Not [place] MD and V) Detected [facility] Specimen Anatomical Collection Method Collection Time Receive d Time (Source) Location / / Volume Laterality Stool 02/07/2023 5:16 AM 6:13 CDT AM CDT Thao Cisneros Estella GRIFFIN MICROBIOLOGY - GENERAL ORDER GODWIN Performing Organization Address City/State/ZIP Code Phon e Number NH [facility] Unless otherwise noted, [place] [id number] all lab tests performed by: Division of Pathology and Laboratory Medicine [address] [place] [address] Gastrointestinal Multiplex Panel Path Review (02/07/2023 5:16 AM CDT) [facility] gist Method Time Signature GIMP LA Reviewed and Electronically signed by Pathologist: NH MD PATRICIA CHAVEZ MD #[id number] [facility] Comment: Performed by real-time PCR methodology. This [...] correlation is recommended. PATRICIA CHAVEZ MD - [id number] Dictated by: MD Suzie BARRON [id number] Dictated Date/Time: 02.07.2023 16:40 PM CDT Transcribed Date/Time: 02.07.2023 16:40 PM CDT Electronically Signed By: MD Suzie MARSHALL [id number] on 02.07.2023 16:40 PM Specimen Anatomical Collection Method Collection Time Receive d Time (Source) Location / / Volume Laterality Stool 02/07/2023 5:16 AM 6:13 CDT AM CDT Thao Soria MD LAB BLOOD ORDERABLES Performing Organization Address City/[facility]/ZIP Code Phon e Number [facility] Unless otherwise noted, [address] all lab tests performed by: Division of Pathology and Laboratory Medicine [address] [place] [address]lary Hodges EKG, 12-Lead (Portable) (02/07/2023)Only the most recent of2 resultswithin the time period is included. Specimen (Source) Anatomical Location Collection Method / Collectio n Time Received Time / Laterality Volume Narrative This result has an attachment that is no t available. Romana Guy MD ECG ORDERABLES Performing Organization Address City/[facility]/ZIP Code Phon e Number DARI IECG NT-Pro BNP (In-House) (02/06/2023 3:05 AM CDT)Only the most recent of2 results within the time period is included. P athologist Signature NT ProBNP 83 <=125 pg/mL [facility] Specimen Anatomical Collection Method Collection Time Receive d Time (Source) Location / / Volume Laterality Blood 02/06/2023 3:05 AM 3:20 CDT AM CDT Cathie Meneses DESCRIPTIVE CATALOG LIBRARIAN,AGACNP LAB BLOOD ORDERABLES Performing Organization Address City/State/ZIP [facility] Phon e Number [facility] Unless otherwise noted, [address] all lab tests performed by: Division of Pathology and Laboratory Medicine [facility] CRP (02/06/2023 3:05 AM CDT)Only the most recent of3 resultswithin the time period is included. athologist [facility] CRP 65.62 mg/L [facility] Comment: Reference ranges for HS CRP assay [...] 3:05 AM 3 3:20 CDT AM CDT DEEPTI Mcmahon APRN LAB BLOOD ORDERABLES Performing Organization Address City/State/ZIP Code Phon e Number [facility] Unless otherwise noted, [address] all lab tests performed by: Division of Pathology and Laboratory Medicine [employer] [facility] Troponin T (In-House) (02/06/2023 1:09 AM CDT)Only the most recent of2 results within the time period is included. [facility] T[facility] 10 <=19 ng/L [facility] Comment: < 19 ng/L Suggest retest at [...] MD LAB BLOOD ORDERABLES Performing Organization Address [facility] Phon e Number [facility] Unless otherwise noted, [address] all lab tests performed by: Division of Pathology and Laboratory Medicine [address] (ABNORMAL) Urine Culture (02/06/2023 12:40 AM CDT)Only the most recent of3 resultswithin the time period is included. Patholo gist Method Time Signature Final Report 10 - 50,000 cfu/ml Normal site isabel present. NH Generally of low significance. KULWANT Correlate with clinical data and culture history. CANCER CENTER (A) Specimen Anatomical Collection Method Collection Time Receive d Time (Source) Location / / Volume Laterality Urine 02/06/2023 12:40 02/06/2023 2:54 AM CDT AM CDT Irina [place] APRN MICROBIOLOGY - GENERAL ORDER GODWIN Performing Organization Address [facility] Phon e Number [facility] Unless otherwise noted, [address] all lab tests performed by: Division of Pathology and Laboratory Medicine [address] aPTT (02/05/2023 8:26 PM CDT)Only the most recent of5 resultswithin the time period is included. P athologist Signature aPTT 28.5 22.8 - 34.2 [facility] second(s) CANCER CENTER Specimen Anatomical Collection Method Collection Time Receive d Time (Source) Location / / Volume Laterality Blood 02/05/2023 8:26 PM 8:29 CDT PM CDT Deneen Guevara MD LAB BLOOD ORDERABLES Performing Organization Address City/[facility]/ZIP Code Phon e Number [facility] Unless otherwise noted, [address] all lab tests performed by: Division of Pathology and Laboratory Medicine [address] VB Lactate (02/05/2023 8:26 PM CDT)Only the most recent of4 resultswithin the time period is included. P athologist Signature V Lactate 1.2 0.5 - 1.6 [facility] mmol/L CANCER CENTER Specimen Anatomical Collection Method Collection Time Receive d Time (Source) Location / / Volume Laterality Blood 02/05/2023 8:26 PM 3 8:29 CDT PM CDT Deneen Guevara MD LAB BLOOD ORDERABLES Performing Organization Address City/[facility]/ZIP Code Phon e Number [facility] Unless otherwise noted, [address] all lab tests performed by: Division of Pathology and Laboratory Medicine [employer] ([facility] Prothrombin Time with INR (02/05/2023 8:26 PM CDT)Only the most recent of5 resultswithin the time period is included. P athologist Signature PT 14.7 (H) 11.9 - 14.1 [facility](s) [facility] INR 1.16 (H) 0.89 - 1.10 [facility] Specimen Anatomical Collection Method Collection Time Receive d Time (Source) Location / / Volume Laterality Blood 02/05/2023 8:26 PM 3 8:29 CDT PM CDT Deneen Guevara MD LAB BLOOD ORDERABLES Performing Organization Address City/[facility] Code Phon e Number [facility] CANCER Unless otherwise noted, [address] all lab tests performed by: Division of Pathology and Laboratory Medicine [employer] [facility] (ABNORMAL) D Dimer (02/05/2023 8:26 PM CDT) athologist Signature D-Dimer 3.04 (H) 0.10 - 0.50 [facility] mcg/ml [facility] Comment: The cut off value for exclusion of venou s thromboembolism is <0.51 mcg/mL FEUs (fibrinogen equival ent units). Specimen Anatomical Collection Method Collection Time Receive d Time (Source) Location / / Volume Laterality Blood 02/05/2023 8:26 PM 8:29 CDT PM CDT Deneen Guevara MD LAB BLOOD ORDERABLES Performing Organization Address City/[facility] Phon e Number [facility]CER Unless otherwise noted, [address] all lab tests performed by: Division of Pathology and Laboratory Medicine [employer] X-ray Abdomen AP (02/05/2023 6:59 PM CDT) [...] dations or lobar pneumonias.. Amanda Proctor MD IMG DIAGNOSTIC IMAGING ORDER GODWIN COVID-19 (SARS-CoV-2)Asymptomatic-LT (02/05/2023 5:09 PM CDT)Only the most recent of4 resultswithin the time period is included. [facility] Method Time Signature COVID19 Not Detected Not Detected CARLA GRIFFIN (SARS-CoV-2) [facility] COVID19 SARS Inpatient CARLA GRIFFIN Indication Admission [facility] Covid 19 See Note [place] Comment [facility] Comment: The ruby SARS-CoV-2 nucleic [...] fact sheet for patients provided by the customer service associate ([employer]) can be reviewed at: https://www.fda.gov/media/571323/treasure hobson. A fact sheet for Health Care providers is provided by the customer service associate ([employer]) and can be reviewed at: https://www.fda.gov/media/420589/download Results must be interpreted within the c [...] This assay has been authorized by the [facility] for use only under Emergency Use Authorization (EUA) in laboratories that have been CLIA-certified to perform moderate-complexity and high-complexity tests. The [facility] at [facility], CLIA Accreditation #[id number] a [place] CAP Accreditation #[id number], verified the performance characteristics of this assay. Internal controls are used to monitor all stages of the test process. Specimen (Source) Anatomical Collection Method Collection Time Re ceived Time Location / / Volume Laterality Nasopharyngeal Swab 02/05/2023 5:09 02/05 PM CDT 5:17 PM CDT Amanda Proctor MD MICROBIOLOGY - GENERAL ORDER GODWIN Performing Organization Address City/[facility] Phon e Number [facility]CER Unless otherwise noted, [address] all lab tests performed by: Division of Pathology and Laboratory Medicine [address] [place] [address] Lipase (02/05/2023 3:30 PM CDT)Only the most recent of4 resultswithin the time period is included. athologist Signature Lipase Lvl 18 13 - 60 U/L [facility] Specimen Anatomical Collection Method Collection Time Receive d Time (Source) Location / / Volume Laterality Blood 02/05/2023 3:30 PM 3 3:39 CDT PM CDT Amanda Proctor MD LAB BLOOD ORDERABLES Performing Organization Address City/[facility] Phon e Number [facility] Unless otherwise noted, [address] all lab tests performed by: Division of Pathology and Laboratory Medicine [address] [place], [place] [address]d CKMB (02/05/2023 3:30 PM CDT) P athologist Signature CK MB <2.0 <=5.3 ng/mL [facility] Specimen Anatomical Collection Method Collection Time Receive d Time (Source) Location / / Volume Laterality Blood 02/05/2023 3:30 PM 3 3:39 CDT PM CDT Amanda Proctor MD LAB BLOOD ORDERABLES Performing Organization Address [facility]/ZIP Code Phon e Number [facility] Unless otherwise noted, [address] all lab tests performed by: Division of Pathology and Laboratory Medicine [address] [facility] Amylase Level (02/05/2023 3:30 PM CDT)Only the most recent of2 resultswithin the time period is included. P athologist Signature Amylase Lvl 43 28 - 100 [facility] U/L CANCER CENTER Specimen Anatomical Collection Method Collection Time Receive d Time (Source) Location / / Volume Laterality Blood 02/05/2023 3:30 PM 3:39 CDT PM CDT Amanda Proctor MD LAB BLOOD ORDERABLES Performing Organization Address City/State/ZIP Code Phon e Number [facility] Unless otherwise noted, [address] all lab tests performed by: Division of Pathology and Laboratory Medicine [address] (ABNORMAL) Urinalysis with Microscopic (02/05/2023 12:39 AM CDT) Patholo gist Method Time Signature UA Color [place] (A) [facility] UA Appear Cloudy (A) Clear [facility] UA Glucose 500 (A) NEG mg/dL [facility] UA Bili NEG NEG [facility] UA Ketones 40 (A) NEG mg/dL [facility] UA Spec Grav 1.021 1.003 - [facility] 1.035 [facility] UA Blood NEG NEG [facility] UA pH 6.0 5.0 - 9.0 [facility] UA Protein 20 (A) NEG mg/dL [facility] UA Urobilinogen NEG NEG [facility] UA Nitrite NEG NEG [facility] UA Leuk Est NEG NEG [facility] UA WBC NOT SEEN 0 - 2 [facility] Comment: Some reporting parameters within the Uri nalysis test have changed due to the implementation of new instrumentation in the [place], allowing greater sensitivity of measurement. Urinalysis results rep orted by the [facility] using existing instrumentation, as well as Urinalysis t esting performed manually or by backup methodology at the [place] will remain relatively unchanged. New reporting parameters and units will not be reported for all campuses. UA RBC 13 (H) 0 - 2 /HPF [facility] UA Mucous NOT SEEN Not Seen-Trace /HPF [facility] UA Bacteria NOT SEEN NOT SEEN /HPF [facility] UA Squam Epi OCC None-Occasional /HPF [facility] Specimen Anatomical Collection Method Collection Time Receive d Time (Source) Location / / Volume Laterality Urine 02/05/2023 12:39 02/06/2023 AM CDT 12:42 AM CDT Irina [place] DESCRIPTIVE CATALOG LIBRARIAN URINE ORDERABLES Performing Organization Address City/State/ZIP Code Phon e Number [facility]ER Unless otherwise noted, [place] [address] [place] all lab tests performed by: Division of Pathology and Laboratory Medicine [employer] [facility] Tip Verification Central Vascular Access Device (01/29/2023 3:08 PM CDT) Narrative Justo Banuelos RN - 01/29/2023 3:08 PM CDT Justo Banuelos RN 01/29/2023 3:08 PM Central Vascular Access Device Tip Verif ication Performed by: Justo Banuelos RN Authorized by: Rashaun Wiley MD [employer] Date device placed: 01/29/2023 Placed by: Justo Banuelos RN Device placement location: [facility] Catheter Type: PICC Catheter lumen: Double lumen [...] Access Device: PICC (01/29/2023 2:04 PM CDT) Justo Ross RN - 01/29/2023 2:04 PM CDT Justo Banuelos RN 01/29/2023 3:09 PM Insertion of 4 Fr double lumen right bas ilic PICC Date/Time: 01/29/2023 2:04 PM Proceduralist Type: RN Proceduralist: Justo Banuelos RN Ordered By: Rashaun Wiley MD Procedure Location: Inpatient Drier Helper present: yes (Saeed GRIFFIN) 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 Informed consent obtained prior to procedure, the risks, benefits, and alternative discussed with patient/designated artist's representative. Pre-p rocedure the patient was alert. [...] placement. placement and tip verified using tip document imaging specialist and place ment and tip verified by [...] period is included. athologist [facility] Hgb 13.3 12.0 - 16.0 [facility] gm/dL [facility] Specimen Anatomical Collection Method Collection Time Receive d Time (Source) Location / / Volume Laterality Blood 01/28/2023 8:24 AM 3 8:30 CDT AM CDT Mana Powers APRN LAB BLOOD ORDERABLES Performing Organization Address City/[facility]/ZIP Code Phon e Number [facility] Unless otherwise noted, [address] all lab tests performed by: Division of Pathology and Laboratory Medicine [address] Hematocrit (01/28/2023 8:24 AM CDT)Only the most recent of3 resultswithin the time period is included. athologist [facility] Hct 40.6 37.0 - 47.0 [facility] Specimen Anatomical Collection Method Collection Time Receive d Time (Source) Location / / Volume Laterality Blood 01/28/2023 8:24 AM 3 8:30 CDT AM CDT Mana Powers APRN LAB BLOOD ORDERABLES Performing Organization Address City/State/ZIP [facility] Phon e Number [facility] Unless otherwise noted, [address] all lab tests performed by: Division of Pathology and Laboratory Medicine [address] (ABNORMAL) Urinalysis Microscopic Exam (01/26/2023 10:45 PM CDT) athologist [facility] UA WBC 6 (H) 0 - 2 /HPF [facility] Comment: Some reporting parameters within the Uri nalysis test have changed due to the implementation of new instrumentation in the [place], allowing greater sensitivity of measurement. Urinalysis results rep orted by the [facility] using existing instrumentation, as well as Urinalysis t esting performed manually or by backup methodology at the [facility] will remain relatively unchanged. New reporting parameters and units will not be reported for all campuses. UA RBC <1 0 - 2 /HPF [facility] UA Mucous NOT SEEN Not Seen-Trace /HPF [facility] UA Bacteria NOT SEEN NOT SEEN /HPF [facility] UA Squam Epi OCC None-Occasional /HPF [facility] Specimen Anatomical Collection Method Collection Time Receive d Time (Source) Location / / Volume Laterality Urine 01/26/2023 10:45 01/26/2023 PM CDT 10:49 PM CDT Amanda Proctor MD LAB BLOOD ORDERABLES Performing Organization Address City/State/ZIP Code Phon e Number [facility] Unless otherwise noted, [place], [place] [id number] [place] [address] all lab tests performed by: Division of Pathology and Laboratory Medicine [address] [place] [address] [place] (ABNORMAL) Urinalysis w/Microscopic if Indicated (01/26/2023 10:45 PM CDT)Only the most recent of2 resultswithin the time period is included. Analysis Performed At Patho logist Time Signature UA Color [place]raw [place] [facility] UA Appear Clear Clear [facility] UA Glucose 500 (A) NEG mg/dL [facility] UA Bili NEG NEG [facility] UA Ketones NEG NEG mg/dL [facility] UA Spec Grav 1.020 1.003 - [facility] 1.035 [facility] UA Blood NEG NEG [facility] UA pH 5.5 5.0 - 9.0 [facility] UA Protein 30 (A) NEG mg/dL [facility] UA Urobilinogen NEG NEG [facility] UA Nitrite NEG NEG [facility] UA Leuk Est NEG NEG [facility] Specimen Anatomical Collection Method Collection Time Receive d Time (Source) Location / / Volume Laterality Urine 01/26/2023 10:45 01/26/2023 PM CDT 10:49 PM CDT Amanda Proctor MD URINE ORDERABLES Performing Organization Address City/[facility]/ZIP [facility] Phon e Number [facility] CANCER Unless otherwise noted, [address] all lab tests performed by: Division of Pathology and Laboratory Medicine [address] [place] [address] (ABNORMAL) LDH (01/26/2023 2:44 PM CDT)Only the most recent of3 resultswithin the time period is included. P athologist Signature LDH 289 (H) 135 - 214 [facility] U/L [facility] Comment: Results greater than [...] / Volume Laterality Blood 01/26/2023 2:44 PM 3:07 CDT PM CDT Amanda Proctor MD LAB BLOOD ORDERABLES Performing Organization Address City/[facility] Phon e Number [facility] CANCER Unless otherwise noted, [address] all lab tests performed by: Division of Pathology and Laboratory Medicine [address] [place] [address] (ABNORMAL) Controlled Substance Monitoring Panel, Urine (01/20/2023 12:37 PM CDT) Analysis Performed At Patho logist Time Signature Urine 55.1 mg/dL [place] Creatinine [facility] Urine Specific 1.014 [facility] [place] [facility] Urine Ph 6.2 [facility] Urine Oxidants Negative Cutoff: [place] 200 mg/L [facility] Urine Comment Normal [facility] U Negative Cutoff: [place] Barbiturates-Ma 200 ng/mL [facility] U Cocaine Negative Cutoff: [place] Lvl-Luu 150 ng/mL [facility] Comment: This cocaine immunoassay targets benzoyl ecgonine the primary metabolite of cocaine. U THC-Luu See Footnote (A) Cutoff: 50 ng/mL [facility] Comment: RESULT: Presumptive Positive This immunoassay targets [...] testing. Codeine Not Detected Cutoff: 25 ng/mL [place] MD [facility] Comment: Tylenol 3 Bfjpfex-9-rlax-glucuronide Not Detected Cutoff: 100 ng/mL [facility] Comment: Metabolite of codeine Morphine Not Detected Cutoff: 25 ng/mL [place] MD [facility] Comment: Martha Mary, MS Contin; Also a minor metabolite (10%) of codeine and can be seen in low concentra tions (<2,000 ng/mL) with poppy seed ingestion. Hsbxwtgz-5-klkc-glucuronide Not Detected Cutoff: 100 ng/mL [facility] Comment: Metabolite of morphine 6-monoacetylmorphine Not Detected Cutoff: 25 ng/mL [facility] Comment: Metabolite of heroin Hydrocodone Not Detected Cutoff: 25 ng/mL [place] [facility] Comment: Lortab, Placitas, Vicodin; Also a very luci r metabolite of codeine and impurity (<1%) of oxycodone. Norhydrocodone Not Detected Cutoff: 25 ng/mL [facility] Comment: Metabolite of hydrocodone Dihydrocodeine Not Detected Cutoff: 25 ng/mL [facility] Comment: Metabolite of hydrocodone Hydromorphone Not Detected Cutoff: 25 ng/mL [facility] Comment: Dilaudid, Exalgo; Also a metabolite of h ydrocodone and a minor (<5%) metabolite of morphine. Tkfopcjxkjtyz-9-zetv-glucuronide Not Detected Cutoff: 100 [facility] ng/mL [facility] Comment: Metabolite of hydromorphone Oxycodone Present (A) Cutoff: 25 ng/mL NH MD RUELAS [facility] Comment: Endocet, Percocet, Oxycontin Noroxycodone Present (A) Cutoff: 25 ng/mL [place] MD [facility] Comment: Metabolite of oxycodone Oxymorphone Not Detected Cutoff: 25 ng/mL NH MD [facility] Comment: Numorphan, Opana; Also a metabo lite of oxycodone. Vtrrstfnfot-5-guue-glucuronide Not Detected Cutoff: 100 ng/mL [facility] Comment: Metabolite of oxymorphone and/o r naloxone (nornaloxone) Noroxymorphone Present (A) Cutoff: 25 ng/mL [facility] Comment: Metabolite of oxymorphone and/o r naloxone (nornaloxone) Fentanyl Not Detected Cutoff: 2 ng/mL NH SU [facility] Comment: Actiq, Duragesic, Fentora Norfentanyl Not Detected Cutoff: 2 ng/mL [facility] MD [facility] Comment: Metabolite of fentanyl Meperidine Not Detected Cutoff: 25 ng/mL [place] MD [facility] Comment: Demerol Normeperidine Not Detected Cutoff: 25 ng/mL [facility] Comment: Metabolite of meperidine Naloxone Not Detected Cutoff: 25 ng/mL [place] MD [facility] Comment: Narcan Lfplzjdi-0-zcih-glucuronide Not Detected Cutoff: 100 ng/mL [facility] Comment: Metabolite of naloxone U Methadone Not Detected Cutoff: 25 ng/mL NH MD [facility]CE [facility] Comment: Dolophine EDDP Not Detected Cutoff: 25 ng/mL [place] MD [facility] Comment: Metabolite of methadone Propoxyphene Not Detected Cutoff: 25 ng/mL NH MD Benjamin [facility] Comment: Darvon, Darvocet Norpropoxyphene Not Detected Cutoff: 25 ng/mL [facility] Comment: Metabolite of propoxyphene Tramadol Not Detected Cutoff: 25 ng/mL [place] MD ALCALA [facility] Comment: Tradol, Ultram, Ultracet O-desmethyltramadol Not Detected Cutoff: 25 ng/mL [facility] Comment: Metabolite of tramadol Tapentadol Not Detected Cutoff: 25 ng/mL [place] MD [facility] Comment: Nucynta Tuytpxxafe-mzql-skdcgcxrfqy Not Detected Cutoff: 100 ng/mL [facility] Comment: Metabolite of tapentadol Buprenorphine Not Detected Cutoff: 5 ng/mL NH MD Benjamin [facility] Comment: Buprenex, Suboxone Norbuprenorphine Not Detected Cutoff: 5 ng/mL [facility] Comment: Metabolite of buprenorphine Norbuprenorphine Glucuronide Not Detected Cutoff: 20 ng/mL [facility] Comment: Metabolite of buprenorphine Opioid Interpretation See Footnote [facility] Comment: Test detected the presence of oxycodone and one of its metabolites (noroxycodone) along with no roxymorphone (metabolite of oxymorphone). Suspect use of oxymorphone and/or oxycodone within the past three d ays. Trace amounts of oxycodone can be found as an impurity in oxymorphone. ADDITIONAL INFORMATIO N This test was developed and its performa nce characteristics determined by [facility] in a manner co nsistent with CLIA requirements. This test has not been sisi ared or approved by the U.S. Food and Drug Administration. Alprazolam Urine Present (A) Cutoff: 10 ng/mL [facility] Comment: Xanax Alpha-Hydroxyalprazolam Urine Present (A) Cutoff: 10 ng/mL [facility] Comment: Metabolite of Alprazolam Alpha-Hydroxyalprazolam Present (A) Cutoff: 50 ng/mL [facility] Glucuronide Urine [facility] Comment: Metabolite of Alprazolam Chlordiazepoxide Urine Not Detected Cutoff: 10 ng/mL [facility] Comment: Librium Colbazam Urine Not Detected Cutoff: 10 ng/mL [facility] Comment: Frisium, Onfi N-Desmethylclobazam Urine Not Detected Cutoff: 200 ng/mL [facility] Comment: Metabolite of Clobazam Clonazepam Urine Not Detected Cutoff: 10 ng/mL [facility] Comment: Klonopin, Rivotril 7-Aminoclonazepam Urine Not Detected Cutoff: 10 ng/mL [facility] Comment: Metabolite of Clonazepam Diazepam Urine Not Detected Cutoff: 10 ng/mL [facility] Comment: Valium Nordiazepam Urine Not Detected Cutoff: 10 ng/mL [facility] Comment: Metabolite of Chlordiazepoxide, Diazepam, or Prazepam. Flunitrazepam Urine Not Detected Cutoff: 10 ng/mL [facility] Comment: Rohypnol 7-Aminoflunitrazepam Urine Not Detected Cutoff: 10 ng/mL [facility] Comment: Metabolite of Flunitrazepam FlUrinerazepam Urine Not Detected Cutoff: 10 ng/mL [facility] Comment: Dalmane 2-Hydroxy Ethyl Flurazepam Not Detected Cutoff: 10 ng/mL [facility] Comment: Metabolite of Flurazepam Lorazepam Urine Not Detected Cutoff: 10 ng/mL [facility] Comment: Ativan Lorazepam Glucuronide Not Detected Cutoff: 50 ng/mL [facility] Comment: Metabolite of Lorazepam Midazolam Urine Not Detected Cutoff: 10 ng/mL [facility] Comment: Versed Alpha-Hydroxy Midazolam Not Detected Cutoff: 10 ng/mL [facility] Comment: Metabolite of Midazolam Oxazepam Urine Not Detected Cutoff: 10 ng/mL [facility] Comment: Serax; Also a metabolite of Chlordiazepo xide, Diazepam, or Temazepam. Oxazepam Glucuronide Urine Not Detected Cutoff: 50 ng/mL [facility] Comment: Metabolite of Oxazepam Prazepam Urine Not Detected Cutoff: 10 ng/mL [facility] Comment: Centrax Temazepam Urine Not Detected Cutoff: 10 ng/mL [facility] Comment: Restoril; Also a metabolite of Diazepam. Temazepam Glucuronide Not Detected Cutoff: 50 ng/mL [facility] Comment: Metabolite of Temazepam Triazolam Urine Not Detected Cutoff: 10 ng/mL [facility] Comment: Halcion Alpha-Hydroxy Triazolam Not Detected Cutoff: 10 ng/mL [facility] Comment: Metabolite of Triazolam Zolpidem Urine Not Detected Cutoff: 10 ng/mL [facility] Comment: Ambien Zolpidem Mjter-5-Rwjmgzbwkd Present (A) Cutoff: 10 ng/mL [facility] Acid Urine [facility] Comment: Metabolite of Zolpidem Benzodiazepine Interp Urine See Footnote [facility] Comment: Test detected the presence of alprazolam and two of its metabolites (alpha-hydroxyalprazolam and alpha-hydroxyalprazolam glucuronide). Agarwal spect use of alprazolam within the past three days. Test detected the presence of zolpidem p jgonq-9-bqvllnobah acid (metabolite of zolpidem) only. Susp ect use of zolpidem within the past four days. ADDITIONAL INFORMATIO N This test was developed and its performa nce characteristics determined by [facility] in a manner co nsistent with CLIA requirements. This test has not been sisi ared or approved by the U.S. Food and Drug Administration. Methamphetamine Not Detected Cutoff: 100 ng/mL [facility] Comment: Desoxyn Amphetamine Not Detected Cutoff: 100 ng/mL [facility] Comment: Dyanavel XR, Adzenys ER, Adderall, Vyvan se; Also a metabolite of methamphetamine 3,4-Methylenedioxymethamphetamine Not Detected Cutoff: 100 [facility] (MDMA) ng/mL [facility] 3,9-Iyeomoyfsxjoyq-G-Ethylamphetamine Not Detected Cutoff: 100 [facility] (MDEA) ng/mL [facility] 3,4-Methylenedioxyamphetamine (MDA) Not Detected Cutoff: 100 [facility] ng/mL [facility] Comment: Also a metabolite of MDMA and/o r MDEA Ephedrine Not Detected Cutoff: 100 ng/mL [facility] Pseudoephedrine Present (A) Cutoff: 100 ng/mL [facility] Comment: Sudafed Phentermine Not Detected Cutoff: 100 ng/mL [facility] Comment: Adipex-P, Lomaira, Qsymia Phencyclidine (PCP) Not Detected Cutoff: 20 ng/mL [facility] Methylphenidate Not Detected Cutoff: 20 ng/mL [facility] Comment: Ritalin, Concerta Ritalinic acid Not Detected Cutoff: 100 ng/mL [facility] Comment: Metabolite of methylphenidate Stimulant Interpretation See Footnote [facility] Comment: Test detected the presence of pseudoephe drine. Suspect use of pseudoephedrine within the past three days. ADDITIONAL INFORMATIO N This test was developed and its performa nce characteristics determined by [facility] in a manner co nsistent with CLIA requirements. This test has not been sisi ared or approved by the U.S. Food and Drug Administration. Test Performed by: [facility] [address] [address] [employer] Software Engineer: Yonathan Guzman M.D. Ph. D.; CLIA# [id number] Patients Current Medications NOT ANSWERED [facility] Comment: ADDITIONAL INFORMATIO N Accuracy and completeness of declared me dications on reports solely dependent on information submitted by client. Specimen Anatomical Collection Method Collection Time Receive d Time (Source) Location / / Volume Laterality Urine 01/20/2023 12:37 01/20/2023 8:31 PM CDT PM CDT Rogerio Kramer MD URINE ORDERABLES Performing Organization Address City/State/ZIP Code Phon e Number [facility] CANCER Unless otherwise noted, [address] all lab tests performed by: Division of Pathology and Laboratory Medicine [employer] Michelle [place] (ABNORMAL) POC Urine Drug Screen (01/20/2023 12:37 PM CDT) athologist Signature POC U Amp Negative Negative [facility] Comment: Drug Abuse Cutoff Concentration: Cutoff: 1000 ng/mL POC U Barbit Negative Negative [facility] Comment: Drug Abuse Cutoff Concentration: 300 ng/mL POC U Benzo Positive (A) Negative [facility] Comment: Drug Abuse Cutoff Concentration: Cutoff: 300 ng/ mL POC U Cocaine Negative Negative [facility] [place] Comment: Drug Abuse Cutoff Concentration: Cutoff: 300 ng/mL POC U THC Positive (A) Negative [facility] Comment: Drug Abuse Cutoff Concentration: Cutoff: 50 ng/mL POC U Methd Negative Negative [facility] CAN [facility] Comment: Drug Abuse Cutoff Concentration: Cutoff: 300 ng/mL POC U Mampht Negative Negative [facility] Comment: Drug Abuse Cutoff Concentration: Cutoff: 1000 ng/mL POC U Opiate Negative Negative [facility] Comment: Drug Abuse Cutoff Concentration: Cutoff: 2000 ng/mL POC U Oxycod Positive (A) Negative [facility] Comment: Drug Abuse Cutoff Concentration: Cutoff: 100 ng/mL Due to the assay cross reactivity betwee n Oxycodone and Opiates, and lower sensitivity compared to GC-MS method, the test results may be falsely positive or falsely negative. Confirmation with concurrent GC-MS results is recommended. POC U PCP Negative Negative [facility] Comment: Drug Abuse Cutoff Concentration: Cutoff: 25 ng/mL POC U TCA Negative Negative [facility] Comment: Drug Abuse Cutoff Concentration: Cutoff: 1000 ng/mL POC U PPX Negative Negative [facility] Comment: Drug Abuse Cutoff Concentration: [...] 1:10 Catch PM CDT PM CDT Narrative [facility] - 1:30 PM CDT The POC Urine Qualitative Drug Screen Pa augusto report is intended for use in clinical monitoring or management of patients. Un confirmed screening results must not be used for non-medical purposes such as legal o r employment-related testing. Rogerio Kramer MD POINT OF CARE TEST ORDERA BLES Performing Organization Address City/[facility] Phon e Number [facility]CER Unless otherwise noted, [place] [address] [place] all lab tests performed by: Division of Pathology and Laboratory Medicine [address] Tetrahydocannabinol (THC), Quantitative, Urine (01/20/2023 12:37 PM CDT) P athologist Signature U THC n/a [place] GC/MS-[facility] U THC see note CARLA GRIFFIN Interp-[facility] Comment: Carboxy-THC Confirmation, U: Carboxy-THC Interpretation: Positive ADDITIONAL INFORMATION: This report is intended for use in clini mari monitoring and management of patients. It is not intend ed for use in employment-related testing. Delta-8 Carboxy-Tetrahydrocannabinol by LC-MS/MS: 672 ng/mL Reference Value: Cutoff: 5 Delta-9 Carboxy-Tetrahydrocannabinol by LC-MS/MS: 42 ng/mL Reference Value: Cutoff: 5 PERFORMING LAB: [facility] [address] [place] [id number] Yonathan Guzman M.D. Ph.D. [id number] U THC [facility] n/a [facility] Specimen Anatomical Collection Method Collection Time Receive d Time (Source) Location / / Volume Laterality Urine, Clean 01/20/2023 12:37 01/27/2023 Catch PM CDT 11:34 AM CDT Rogerio Kramer MD URINE ORDERABLES Performing Organization Address City/[facility] Phon e Number [facility]CER Unless otherwise noted, [place] [address] CENTER all lab tests performed by: Division of Pathology and Laboratory Medicine [address] [facility] X-ray Knee 1 Or 2 Views Right [...] OU - Both Eyes (12/29/2022 10:51 AM EMPLOYEE BENEFITS DIRECTOR) Specimen (Source) Anatomical Location Collection Method / Collectio n Time Received Time / Laterality Volume Narrative Suzanne Mcgrath MD - 12/30/2022 11:50 AM EMPLOYEE BENEFITS DIRECTOR Right Eye Threshold was 30-2. The AVF [...] otherwise non specific Suzanne Mcgrath MD OPHTHALMOLOGY G ORDERABLES OCT, Optic Nerve - OU - Both Eyes (12/29/2022 10:43 AM EMPLOYEE BENEFITS DIRECTOR) Specimen (Source) Anatomical Location Collection Method / Collectio n Time Received Time / Laterality Volume Suzanne Hill MD - 12/30/2022 11:44 AM EMPLOYEE BENEFITS DIRECTOR Normal average thickness of peripapillary retinal nerve fiber layer . With borderline thinning temporally righ t eye Suzanne Mcgrath MD OPHTHALMOLOGY G ORDERABLES OCT, Retina - OU - Both Eyes (12/29/2022 10:43 AM EMPLOYEE BENEFITS DIRECTOR) Specimen (Source) Anatomical Location Collection Method / Collectio n Time Received Time / Laterality Volume Suzanne Hill MD - 12/30/2022 11:44 AM EMPLOYEE BENEFITS DIRECTOR This result has an attachment that is no t available. Normal macular volume. No sign of serou s retinopathy Suzanne Mcgrath MD OPHTHALMOLOGY IMG ORDERABLES COVID-19 (SARS-CoV-2) PCR-Asymptomatic (12/23/2022 12:01 PM EMPLOYEE BENEFITS DIRECTOR) [facility] Method Time Signature COVID19 (SARS Not Detected Not Detected [facility] CoV-2) [facility] Comment: This test is a qualitative reverse-trans criptase polymerase chain reaction (RT- PCR) developed for the [employer] system and intended for qualitative detection of SARS CoV-2 RNA in nasopharyngeal a nd oropharyngeal swab specimens collecte d from any individuals, including those suspected o f COVID-19 by their healthcare provider, and those without symptoms or other reasons to suspect COVID-19. A fact sheet for patients provided by the customer service associate ( [employer]) can be rev iewed at: https://www.fda.gov/media/076728/downloa d. A fact sheet for Health Care providers is provided by the customer service associate ([employer]) and can be reviewed at: https://www.fda.gov/media/602106/download Results must be interpreted within the c [...] were verified by the Microbiology Laboratory at [facility], CLIA Accreditation #: [id number] and CAP Accreditation #: [id number]. COVID19 SARS Source CRYSTAL REPORT DEVELOPER Swab [place] MD ALCALA [facility] COVID19 SARS Indication Pre-Radiation Therapy [facility] Specimen (Source) Anatomical Collection Method Collection Time Re ceived Time Location / / Volume Laterality Nasopharyngeal Swab 12/23/2022 12:01 02/12/2022 PM EMPLOYEE BENEFITS DIRECTOR 3:41 PM EMPLOYEE BENEFITS DIRECTOR Winter Luu MD MICROBIOLOGY - GENERAL ORDER GODWIN Performing Organization Address City/State/ZIP Code Phon e Number [facility] Unless otherwise noted, [place] [address] [place] all lab tests performed by: Division of Pathology and Laboratory Medicine [employer] [facility] OCT, Optic Nerve - OU - Both Eyes (12/15/2022 10:37 AM EMPLOYEE BENEFITS DIRECTOR) Specimen (Source) Anatomical Location Collection Method / Collectio n Time Received Time / Laterality Volume Sheridan Angulo MD - 12/17/2022 12:25 PM EMPLOYEE BENEFITS DIRECTOR Right Eye Average nerve fiber layer thickness cons istent with normal Left Eye Average nerve fiber layer thickness cons istent with normal Sheridan Alvarez MD OPHTHALMOLOGY IMG ORDERABLES OCT, Retina - OU - Both Eyes (12/15/2022 10:37 AM EMPLOYEE BENEFITS DIRECTOR) Specimen (Source) Anatomical Location Collection Method / Collectio n Time Received Time / Laterality Volume Sheridan Angulo MD - 12/17/2022 12:25 PM EMPLOYEE BENEFITS DIRECTOR Right Eye This is the baseline exam. Findings incl ude normal observations. Left Eye This is the baseline exam. Findings incl ude normal observations. Sheridan Alvarez MD OPHTHALMOLOGY IMG ORDERABLES Fundus Photos - OU - Both Eyes (12/15/2022 10:37 AM EMPLOYEE BENEFITS DIRECTOR) Specimen (Source) Anatomical Location Collection Method / Collectio n Time Received Time / Laterality Volume Sheridan Angulo MD - 12/17/2022 12:25 PM EMPLOYEE BENEFITS DIRECTOR Right Eye Basline Exam. Sheridan Alvarez MD OPHTHALMOLOGY IMG ORDERABLES 3D Dental Imaging (iCAT) (12/15/2022 8:42 AM EMPLOYEE BENEFITS DIRECTOR) Specimen (Source) Anatomical Location Collection Method / Collectio n Time Received Time / Laterality Volume Narrative Systemgenerated, Documentation - 023 8:42 AM EMPLOYEE BENEFITS DIRECTOR This procedure requires no interpretatio n from the radiologist. Benito Yeny DDS IMG NON DI ORDERABLES [place] Modified Barium Swallow w Speech (12/14/2022 2:37 PM EMPLOYEE BENEFITS DIRECTOR) Anatomical Region Laterality Modality Neck Radio Fluoroscopy Specimen (Source) Anatomical Collection Method Collection Time Re ceived Time Location / / Volume Laterality 12/14/2022 2:58 PM EMPLOYEE BENEFITS DIRECTOR Impressions 12/14/2022 3:08 PM EMPLOYEE BENEFITS DIRECTOR 1. Flash penetration without aspiration seen with thin liquid barium. 2. Please refer to the separately dictat ed speech pathology report for further details and recommendations. 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 There was no pharyngeal residue. Pharyngeal [...] liquid barium. 2. Please refer to the [facility] ed speech pathology report for further details and recommendations. Travis Lopez MD IMG FLUOROSCOPY ORDERABLES (ABNORMAL) ABG Venous (12/11/2022 6:21 PM EMPLOYEE BENEFITS DIRECTOR) athologist Signature pH Raghavendra 7.40 7.32 - 7.43 [facility] Comment: Results are corrected for a bod y temp of 37C pCO2 Raghavendra 47.6 41.0 - 51.0 mmHg [place] MD LE[facility] pO2 Raghavendra 52 mmHg [facility] HCO3 Raghavendra 29 (H) 21 - 28 mmol/L [facility] Base Excess Raghavendra 3 -2 - 3 mmol/L [place] MD [facility] O2 Sat Raghavendra 87 % BANNER MD [facility] Specimen Anatomical Collection Method Collection Time Receive d Time (Source) Location / / Volume Laterality Blood 12/11/2022 6:21 PM 3 6:29 EMPLOYEE BENEFITS DIRECTOR PM EMPLOYEE BENEFITS DIRECTOR Travis Lopez MD LAB BLOOD ORDERABLES Performing Organization Address City/State/ZIP Code Phon e Number [facility] Unless otherwise noted, [address] all lab tests performed by: Division of Pathology and Laboratory Medicine [employer] Troylary Hodges Ketone Bodies Qualitative (12/11/2022 5:19 PM EMPLOYEE BENEFITS DIRECTOR) athologist Signature UA Ketones NEG NEG mg/dL [facility] Specimen Anatomical Collection Method Collection Time Receive d Time (Source) Location / / Volume Laterality Urine 12/11/2022 5:19 PM 3 5:24 EMPLOYEE BENEFITS DIRECTOR PM EMPLOYEE BENEFITS DIRECTOR Waleska Salinas DESCRIPTIVE CATALOG LIBRARIAN URINE ORDERABLES Performing Organization Address City/[facility]/ZIP Code Phon e Number [facility] CANCER Unless otherwise noted, [address] all lab tests performed by: Division of Pathology and Laboratory Medicine [employer] POC Critical (12/11/2022 3:34 PM EMPLOYEE BENEFITS DIRECTOR)Only the most recent of2 resultswithin the time period is included. athologist Signature POC Critical See Note POC TELCOR Comment Comment: Test performer notified Orderin g Licensed Provider and /or designee of POC Glucose Screen critical Results.. Specimen Anatomical Collection Method Collection Time Receive d Time (Source) Location / / Volume Laterality Blood 12/11/2022 3:34 PM 3:34 EMPLOYEE BENEFITS DIRECTOR PM EMPLOYEE BENEFITS DIRECTOR Travis Lopez MD POINT OF CARE TEST ORDERABLE S Performing Organization Address City/State/ZIP Code Phon e Number POC TELCOR Unless otherwise noted, [place] [address] lab tests performed by: Division of Pathology and Laboratory Medicine [employer] [facility] (ABNORMAL) POC VBG+Lac (12/09/2022 9:36 PM EMPLOYEE BENEFITS DIRECTOR) athologist Signature POC VB pH 7.46 (H) [...] Clean Dev Yes POC TELCOR Performing Lab [facility] POC TELCO R Comment: [facility] Clinical Lab, [employer], [place] [address]; Lab Direct or: Chula Jacob MD; Waived Point of Care Testing - Gabrielle Mueller MD Specimen Anatomical Collection Method Collection Time Receive d Time (Source) Location / / Volume Laterality Blood 12/09/2022 9:36 PM 3 9:36 EMPLOYEE BENEFITS DIRECTOR PM EMPLOYEE BENEFITS DIRECTOR Roberto Carlos Walsh MD POCT ORDERABLES - DEVICE Performing Organization Address City/State/ZIP Code Phon e Number POC TEL[facility] Unless otherwise noted, [place] [address] lab tests performed by: Division of Pathology and Laboratory Medicine Brian Hodges Ammonia Level (12/09/2022 6:01 PM EMPLOYEE BENEFITS DIRECTOR) P athologist Signature Ammonia 18 11 51 [facility] Specimen Anatomical Collection Method Collection Time Receive d Time (Source) Location / / Volume Laterality Blood 12/09/2022 6:01 PM 3 6:15 EMPLOYEE BENEFITS DIRECTOR PM EMPLOYEE BENEFITS DIRECTOR Tammy Mike MD LAB BLOOD ORDERABLES Performing Organization Address City/[facility]/ZIP Code Phon e Number [facility] Unless otherwise noted, [address] all lab tests performed by: Division of Pathology and Laboratory Medicine [facility] Michelle LOUIS MD, MDA CHRISTINE: Mutation Analysis Precision Panel Report (12/04/2022 10:56 AM EMPLOYEE BENEFITS DIRECTOR) Specimen (Source) Anatomical Collection Method Collection Time Re ceived Time Location / / Volume Laterality 12/04/2022 10:56 AM EMPLOYEE BENEFITS DIRECTOR Narrative This result has an attachment that is no t available. Lorena [facility] (MISSY GRIFFIN) Solid Tumor Genomic Assay Fusions 2018 Interpretation and Report (12/04/2022 10:56 AM EMPLOYEE BENEFITS DIRECTOR) Specimen Anatomical Collection Method Collection Time Receive d Time (Source) Location / / Volume Laterality 12/04/2022 10:56 12/04/2022 AM EMPLOYEE BENEFITS DIRECTOR 10:56 AM EMPLOYEE BENEFITS DIRECTOR Narrative This result has an attachment that is no t available. Lorena [facility] (MISSY GRIFFIN) Molecular Diagnostics Specimen Collection -FFPE (12/04/2022 10:56 AM EMPLOYEE BENEFITS DIRECTOR) Patholo gist Method Time Signature Molecular Yes [facility] (Received) CANCER CENTER Beaker Ap Link [id number] [facility] Block Number BLANK [place] (Qualitative) [facility] Outside [id number] [place] [facility] (Qualitative) CANCER CENTER Specimen Anatomical Collection Method Collection Time Receive d Time (Source) Location / / Volume Laterality FFPE 12/04/2022 10:56 12/04/2022 AM EMPLOYEE BENEFITS DIRECTOR 10:56 AM EMPLOYEE BENEFITS DIRECTOR Lorena Hdez DESCRIPTIVE CATALOG LIBRARIAN MDA NONBLOOD COLLECTIO NS Performing Organization Address City/State/ZIP Code Phon e Number [facility] CANCER Unless otherwise noted, [place] [address] [place] all lab tests performed by: Division of Pathology and Laboratory Medicine [address] [place] [address] MRI Skull Base with and without Contrast (11/30/2022 11:12 AM EMPLOYEE BENEFITS DIRECTOR) Anatomical Region Laterality Modality Head Magnetic Resonance Specimen (Source) Anatomical Collection Method Collection Time Re ceived Time Location / / Volume Laterality 12/01/2022 9:21 AM EMPLOYEE BENEFITS DIRECTOR Impressions 12/01/2022 1:06 PM EMPLOYEE BENEFITS DIRECTOR 1. 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 2. Tumor likely involves the lesser wi ng of the left sphenoid bone. 3. No lateral retropharyngeal or visua lized cervical adenopathy. Narrative 12/01/2022 1:06 PM EMPLOYEE BENEFITS DIRECTOR FULL RESULT: Examination: MRI SKULL BASE WITH [...] retropharyngeal or visuali zed cervical adenopathy. Lorena Kayla Hdez DESCRIPTIVE CATALOG LIBRARIAN IMG MRI ORDERABLES PETCT Contrast Enhanced Initial Treatment Strategy (11/27/2022 3:57 PM EMPLOYEE BENEFITS DIRECTOR) Anatomical Region Laterality Modality Whole Body Positron Emission To mography (PET) Specimen (Source) Anatomical Collection Method Collection Time Re ceived Time Location / / Volume Laterality 11/30/2022 8:31 AM EMPLOYEE BENEFITS DIRECTOR Impressions 11/30/2022 8:38 AM EMPLOYEE BENEFITS DIRECTOR Subtle activity associated with subtle asymmetric fullness in posterior left nasal pharynx is compatible with reported primary tumor. No suspicious activity to suggest regional jeremiah or distant metastases. Narrative 11/30/2022 8:38 AM EMPLOYEE BENEFITS DIRECTOR FULL RESULT: Examination: Contrast-Enhanced FDG PET /CT, [...] distant metastases. Lindy GALE IMG PETCT ORDERABLES NGS Blood Control (11/26/2022 1:07 PM EMPLOYEE BENEFITS DIRECTOR) athologist Signature Molecular Yes [facility] CANCER CENTER (Received) Specimen Anatomical Collection Method Collection Time Receive d Time (Source) Location / / Volume Laterality Blood 11/26/2022 1:07 PM 3 9:13 EMPLOYEE BENEFITS DIRECTOR AM EMPLOYEE BENEFITS DIRECTOR Lorena Hdez APRN MDA IP HP MOLECULAR DIAG IF ORDERABLES Performing Organization Address City/State/ZIP Code Phon e Number [facility]CER Unless otherwise noted, [place] [address] CENTER all lab tests performed by: Division of Pathology and Laboratory Medicine [address] Hod[address] (ABNORMAL) Vitamin D 25OH (11/26/2022 1:07 PM EMPLOYEE BENEFITS DIRECTOR) athologist Signature Vitamin D 25 OH 21 (L) 30 - 100 MANSURA ng/mL Comment: Reference Range: Deficiency: <10 ng/mL Insufficiency: 10-29 ng/mL Sufficiency: 30-100 ng/mL Potential toxicity: >100 ng/mL Testing performed at [facility], [address] [place] [address] Specimen Anatomical Collection Method Collection Time Receive d Time (Source) Location / / Volume Laterality Blood 11/26/2022 1:07 PM 3 1:19 EMPLOYEE BENEFITS DIRECTOR PM EMPLOYEE BENEFITS DIRECTOR Lorena Hdez APRN LAB BLOOD ORDERABLES Performing Organization Address [facility] Code Phon e Number [address] (ABNORMAL) Uric Acid (11/26/2022 1:07 PM EMPLOYEE BENEFITS DIRECTOR) athologist Signature Uric Acid 6.5 (H) 2.4 - 5.7 MANSURA mg/dL Comment: Testing performed at [facility], [address] [place] [address] Specimen Anatomical Collection Method Collection Time Receive d Time (Source) Location / / Volume Laterality Blood 11/26/2022 1:07 PM 3 1:19 EMPLOYEE BENEFITS DIRECTOR PM EMPLOYEE BENEFITS DIRECTOR Lorena Hdez APRN LAB BLOOD ORDERABLES Performing Organization Address City/[facility]/ZIP Code Phon e Number [address] NTRK3 Fusion Material Request (11/26/2022 12:43 PM EMPLOYEE BENEFITS DIRECTOR) Component Value Ref Test Analysis Performed At [facility] [employer] Range Method Time Signature Archived The test is to be 12/04/2022 [facility] Material performed on 8:01 AM EMPLOYEE BENEFITS DIRECTOR tissue from case [id number]. The case report, slides, and blocks for [...] Volume Laterality Tissue 11/26/2022 12:43 11/26/2022 PM EMPLOYEE BENEFITS DIRECTOR 12:43 PM EMPLOYEE BENEFITS DIRECTOR Lorena Hdez APRN MDA IP AP BIOMARKERS Performing Organization Address City/State/ZIP Code Phon [place] [address] [address] Michelle Hodges MD NTRK2 Fusion Material Request (11/26/2022 12:43 PM EMPLOYEE BENEFITS DIRECTOR) Component Value Ref Test Analysis Performed At [facility] [employer] Range Method Time Signature Archived The test is to be 12/04/2022 [facility] Material performed on 8:01 AM EMPLOYEE BENEFITS DIRECTOR tissue from case [id number]. The case report, slides, and blocks for [...] Volume Laterality Tissue 11/26/2022 12:43 11/26/2022 PM EMPLOYEE BENEFITS DIRECTOR 12:43 PM EMPLOYEE BENEFITS DIRECTOR Lorena Hdez APRN MDA IP AP BIOMARKERS Performing Organization Address City/State/ZIP Code Phon [place] [address] Michelle Hodges MD NTRK1 Fusion Material Request (11/26/2022 12:43 PM EMPLOYEE BENEFITS DIRECTOR) Component Value Ref Test Analysis Performed At [facility] Method Time Signature Archived The test is to be 12/04/2022 [facility] Material performed on 8:01 AM EMPLOYEE BENEFITS DIRECTOR tissue from case [id number]. The case report, slides, and blocks for [...] Volume Laterality Tissue 11/26/2022 12:43 11/26/2022 PM EMPLOYEE BENEFITS DIRECTOR 12:43 PM EMPLOYEE BENEFITS DIRECTOR Lorena Hdez APRN [facility] IP AP BIOMARKERS Performing Organization Address City/State/ZIP Code Phon e Number [facility] [place] [address] [address] Michelle Hodges MD ERBB2 Mutation Analysis Material Request (11/26/2022 12:43 PM EMPLOYEE BENEFITS DIRECTOR) Component Value Ref Test Analysis Performed At [facility] Method Time Signature Archived The test is to be 12/04/2022 [facility] Material performed on 8:01 AM EMPLOYEE BENEFITS DIRECTOR tissue from case [id number]. The case report, slides, and blocks for [...] Volume Laterality Tissue 11/26/2022 12:43 11/26/2022 PM EMPLOYEE BENEFITS DIRECTOR 12:43 PM EMPLOYEE BENEFITS DIRECTOR Lorena Kayla Hdez APRN [facility] IP AP BIOMARKERS Performing Organization Address City/[facility]/ZIP Code Phon [place] [address] [address] Michelle Hodges MD ALK Mutation Analysis Material Request (11/26/2022 12:43 PM EMPLOYEE BENEFITS DIRECTOR) Component Value Ref Test Analysis Performed At [facility] gist Range Method Time Signature Archived The test is to be 12/04/2022 [facility] Material performed on 8:02 AM EMPLOYEE BENEFITS DIRECTOR tissue from case [id number]. The case report, slides, and blocks for the cited accession were retrieved from archives. The pathologist examined the candidate H&E slide and selected the block appropriate to the specifications of the ordered molecular analysis. Unstained slides and H&E slide were prepared and forwarded to [facility] where the subject molecular test will be performed. Results will be reported separately. Pathologist Electronically 12/04/2022 [employer] [facility] Signature signed by Larissa March 8:02 AM BRANDAN Medrano MD on 12/04/22 8:02 AM Specimen Anatomical Collection Method Collection Time Receive d Time (Source) Location / / Volume Laterality Tissue 11/26/2022 12:43 11/26/2022 PM EMPLOYEE BENEFITS DIRECTOR 12:43 PM EMPLOYEE BENEFITS DIRECTOR Lorena Kayla Hdez APRN [facility] IP AP BIOMARKERS Performing Organization Address [facility] Phon e Number [facility] [place] [address]15 Michelle Hodges MD MTOR Mutation Material Request (11/26/2022 12:43 PM EMPLOYEE BENEFITS DIRECTOR) Component Value Ref Test Analysis Performed At [facility] Range Method Time Signature Archived The test is to be 12/04/2022 [facility] Material performed on 8:01 AM EMPLOYEE BENEFITS DIRECTOR tissue from case [id number]. The case report, slides, and blocks for the cited accession were retrieved from archives. The pathologist examined the candidate H&E slide and selected the block appropriate to the specifications of the ordered molecular analysis. Unstained slides and H&E slide were prepared and forwarded to [facility] where the subject molecular test will be performed. Results will be reported separately. Pathologist Electronically 12/04/2022 [facility] Signature signed by Larissa March 8:01 AM BRANDAN Medrano MD on 12/04/22 8:01 AM Specimen Anatomical Collection Method Collection Time Receive d Time (Source) Location / / Volume Laterality Tissue 11/26/2022 12:43 11/26/2022 PM EMPLOYEE BENEFITS DIRECTOR 12:43 PM EMPLOYEE BENEFITS DIRECTOR Lorena Hdez APRN [facility] IP AP BIOMARKERS Performing Organization Address City/[facility]/ZIP Code Phon [place] [address] Michelle Hodges MD PTEN Mutation Material Request (11/26/2022 12:43 PM EMPLOYEE BENEFITS DIRECTOR) Component Value Ref Test Analysis Performed At [facility] gist Range Method Time Signature Archived The test is to be 12/04/2022 [facility] Material performed on 8:02 AM EMPLOYEE BENEFITS DIRECTOR tissue from case [id number]. The case report, slides, and blocks for [...] Volume Laterality Tissue 11/26/2022 12:43 11/26/2022 PM EMPLOYEE BENEFITS DIRECTOR 12:43 PM EMPLOYEE BENEFITS DIRECTOR Lorena Hdez APRN [facility] IP AP BIOMARKERS Performing Organization Address City/[facility] Code Phon e Number [place] [address] 1515 Michelle Hodges MD EGFR Mutation Material Request (11/26/2022 12:43 PM EMPLOYEE BENEFITS DIRECTOR) Component Value Ref Test Analysis Performed At [facility] gist Range Method Time Signature Archived The test is to be 12/04/2022 [facility] Material performed on 8:02 AM EMPLOYEE BENEFITS DIRECTOR tissue from case [id number]. The case report, slides, and blocks for [...] Volume Laterality Tissue 11/26/2022 12:43 11/26/2022 PM EMPLOYEE BENEFITS DIRECTOR 12:43 PM EMPLOYEE BENEFITS DIRECTOR Lorena Hdez APRN MDA IP AP BIOMARKERS Performing Organization Address City/[facility]/ZIP Code Phon [place] [address] [address] Michelle Wakefield IHC PD-L1 Material Request (11/26/2022 12:43 PM EMPLOYEE BENEFITS DIRECTOR) Specimen Anatomical Collection Method Collection Time Receive d Time (Source) Location / / Volume Laterality Tissue 11/26/2022 12:43 11/26/2022 PM EMPLOYEE BENEFITS DIRECTOR 12:43 PM EMPLOYEE BENEFITS DIRECTOR Lorena Hdez APRN MDA IP AP BIOMARKERS Performing Organization Address City/[facility]/ZIP Code Phon e Number [place] [address] [address] Troy Wakefield IHC HER2/arcenio Material Request (11/26/2022 12:43 PM EMPLOYEE BENEFITS DIRECTOR) Specimen Anatomical Collection Method Collection Time Receive d Time (Source) Location / / Volume Laterality Tissue 11/26/2022 12:43 11/26/2022 PM EMPLOYEE BENEFITS DIRECTOR 12:43 PM EMPLOYEE BENEFITS DIRECTOR Lorena Hdez APRN MDA IP AP BIOMARKERS Performing Organization Address City/[facility] Phon e [place] [address] [address] Troy Wake[address] Testosterone Level (11/17/2022 12:11 PM EMPLOYEE BENEFITS DIRECTOR) athologist Signature Testoster Tot <3 3 - 41 MANSURA ng/dL Comment: Reference Ranges: Male: Age 20 - 49 249 - 836 Age >=50 1 93 - 740 Female: Age 20 - 49 8 - 48 Age >=50 3 - 41 Testing performed at [facility], [address] [place] [address] Specimen Anatomical Collection Method Collection Time Receive d Time (Source) Location / / Volume Laterality Blood 11/17/2022 12:11 11/17/2022 PM EMPLOYEE BENEFITS DIRECTOR 12:12 PM EMPLOYEE BENEFITS DIRECTOR Red Berman DESCRIPTIVE CATALOG LIBRARIAN LAB BLOOD ORDERABLES Performing Organization Address City/State/ZIP Code Phon e Number LINSEY JIMENEZ [facility] [place] [address] [address] [facility] Pathology Outside Interpretation (10/16/2022) Component Value Ref Test Analysis Performed Pathologis t Range Method Time At [facility] Accession#, Stained, Block, Unstained Collected Received 11/27/2022 [facility] Received A. [id number], 7 SS, 1 BLOCKS, 0 USS 10/16/2022 11/24/2022 5:08 PM EMPLOYEE BENEFITS DIRECTOR Addendum 1 At the request of the treatcarlos machado physician the following studies were performed and interpreted at MD Blum. 11/27/2022 [facility] Addendum 5:08 PM electronic ally The tumor cells are negative for Her2 (0%) by immunohi stochemical analysis. 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 MD Gerald on 11/27/2022 at PD-L1 (Clone 22C3, [employer]) Combine d Positive Score (CPS): is less than 1 5:08 PM Assay Information: This assa y is manufactured by [employer] and uses a monoclonal anti-PD-L1, clone 22C3. It is performed on formalin-fixed paraffin- embedded tissue using an [employer]ako autostainer a nd polymer based detection k it, as specified by the customer service associate. It is approved for use as a taper/finisher diagnostic for specific therapies on certain tumor [...] is defined as CPS 100. Diagnosis Outside ([id number], 7 SS, 1 BLOCKS, 0 USS, colle cted on 10/16/2022): 11/27/2022 [facility] Electronically 5:08 PM signed by Nasopharynx, biopsy: BRANDAN Sotelo ADENOID CYSTIC CARCINOMA, CRIBRIFORM TYPE see comment MD Gearld on 11/26/2022 at EARL/SALEEM 9:43 AM Comment Submitted 11/27/2022 [facility] immunohistochemical 5:08 PM stains performed by EMPLOYEE BENEFITS DIRECTOR referring institution show that CK7 highlights the epithelial cells, and p63 and p40 highlights the myoepithelial cells. The morphology and immunophenotype is supportive of this classification. Biomarker Tumor block: 11/27/2022 [facility] Block(s) [id number] 5:08 PM EMPLOYEE BENEFITS DIRECTOR Disclaimer "Some tests reported 11/27/2022 [facility] here may have been 5:08 PM developed and EMPLOYEE BENEFITS DIRECTOR performance characteristics determined by [facility]. These tests have not been specifically cleared or approved by the U.S. Food and Drug Administration. If applicable, controls were reviewed and showed appropriate reactivity." Specimen (Source) Anatomical Collection Method Collection Time Re ceived Time Location / / Volume Laterality Tissue 10/16/2022 11/24/2022 3:02 PM EMPLOYEE BENEFITS DIRECTOR Alexa Alvarez MD LAB PATHOLOGY ORDERABLES Performing Organization Address City/State/ZIP Code Phon e Number [facility] [place] [address] [address] after 05/18/2022 Insurance Payer Benefit Plan / Subscriber ID Effective Phone Address T ype Group Dates MEDICARE MEDICARE PART A [id number] 2010-Pres [phone] NOVITAS Medicare AND B ent 782 SOLUTIONS [address] [facility] [place] [phone] [place]ID [place] [id number] 2022-Pres [address] Medicaid TRADITIONAL TRADITIONAL ent [id number] [place] [address] Advance Directives Code Status Date Activated Date Inactivated Comments Full Code 02/06/2023 1:33 AM 02/16/2023 6:41 PM Code Status Date Activated Date Inactivated Comments Full Code 01/26/2023 5:50 PM 02/01/2023 8:34 PM Full Code 01/11/2023 10:19 PM 01/18/2023 9:39 PM Full Code 12/09/2022 10:42 PM 12/15/2022 9:30 PM Care Teams Production Internship Relationship Specialty Start Date End Date Bina Obando PCP - External Otolaryngology 11/12/22 MD Joana Referring [address] [place] [phone] Kenya Agarwal MD PCP - General Head and Neck Surgery 11/12/[address] [place] [address] [phone] Trent Irving MD Family Practice 11/26/22 [address] [place], [place] [address] [facility] 11/26/22 MD Maciej [address] [place], [place] [phone] Vignesh Waddell, Pulmonary Medicine 11/26/22 MD [address] [place] [address] Naa Miller, Cardiology 11/26/[address] [address] Tapan Harper, Gastroenterology 11/26/22 [address] [place] [address] Rafael Rosas, Ophthalmology 11/26/22 [address] [place] [phone] Suzanne Mcgrath MD Consulting Physician Ophthalmology 12/29/[address] [place] [address]
[2023-05-18 13:54] LABS: Absolute Lymphocytes (CBC) 1.6 K/uL (0.7-4.9); Hematocrit 47.3 % (36.0-45.0); Lymphocytes % 21.7 % (15.3-44.8); MCV 95.3 fL (80-100); MPV 8.7 fL (7.6-11.3); RBC Red Blood Cell Count 4.96 M/uL (3.86-4.86)
--- NOTE | 2023-05-18 14:31 | RAD REPORT ---
EXAM DESCRIPTION: CTAbdomen Pelvis W Contrast - 05/18/2023 2:18 pm CLINICAL HISTORY: Abdominal pain. Abd pain;Constipation COMPARISON: <Comparisons> TECHNIQUE: Biphasic CT imaging of the abdomen and pelvis was performed with 100 ml non-ionic IV cont rast. All CT scans are performed using dose optimization technique as appropriate and may include automated exposure control or mA/KV adjustment according to patient size. FINDINGS: The lung bases are clear.Postsurgical changes about the stomach. Cholecystectomy clips. The liver, spleen, pancreas, adrenal glands and kidneys are within normal limits. No bowel obstruction, free air, free fluid or abscess. Prominent stool is present throughout the colo n. The appendix is normal. No evidence of significant lymphadenopathy. Moderate lumbar degenerative changes. IMPRESSION: No acute intra-abdominal or pelvic finding. Moderate fecal retention.
[2023-05-18 14:40] LABS: ALT/SGPT 45 U/L (13-56); Albumin 3.3 g/dL (3.4-5.0); Alkaline Phosphatase 91 U/L (45-117); BUN Blood Urea Nitrogen 8 mg/dL (7-18); Bicarbonate 32 mEq/L (21-32); Bilirubin Total 0.3 mg/dL (0.2-1.0); Glomerular Filtration Rate 82 ml/min (=/>90); Glucose Level 231 mg/dL (74-106); NT PRO-BNP 23 pg/mL (<125); Protein, Total 7.3 g/dL (6.4-8.2); Sodium Level 137 mEq/L (136-145); Troponin High Sensitivity 5.1 pg/mL (<58.9)
[2023-05-18 14:41] LABS: AST/SGOT 33 U/L (15-37); Bilirubin Direct < 0.1 mg/dL (0-0.2); Bilirubin Indirect, Calculated ND mg/dL (0.2-0.8); Magnesium 1.5 mg/dL (1.6-2.4); Potassium 3.8 mEq/L (3.5-5.1)
--- NOTE | 2023-05-18 14:53 | RAD REPORT ---
EXAM DESCRIPTION: RAD - Chest Single View - 05/18/2023 2:40 pm CLINICAL HISTORY: CHEST PAIN Chest pain. COMPARISON: <Comparisons> FINDINGS: Portable technique limits examination quality. The lungs are grossly clear. The heart is mildly enlarged. No displaced fractures. IMPRESSION: No acute intrathoracic process suspected.
--- OUTSIDE RECORDS SUMMARY | 2023-05-18 14:54 | XMS REPORT | Continuity of Care Document ---
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 nt mouth every 12 Anderso (twelve) n hours. Cancer Center promethazin Yes TAKE 5 ML U nivers e-dextromet 5-30 BY MOUTH ity of horphan 00:00: EVERY 6 [place] (PROMETHAZI 00 HOURS MD HORVATH-ROBBIN) NEEDED FOR Anderso 6.25-15 COUGH n mg/5 [...] 10 mg 00:00: [place] tablet 00 MD Rob Cancer [place] oxyCODONE-a Yes Univer s cetaminophe 5-20 ity of n 00:00: [place] (PERCOCET) 00 MD 2.5-325 mg Anderso per tablet n [facility] cefPODoxime Yes 200mg Take 1 Uni vers (VANTIN) 5-14 tablet ity of 200 mg 00:00: (200 mg) [place] tablet 00 by mouth twice Anderso daily. n Cancer [place] cefPODoxime Yes 200mg Take 1 Uni vers (VANTIN) 5-14 tablet ity of 200 mg 00:00: (200 mg) [place] tablet 00 by mouth twice Andersclint daily. [facility] cefPODoxime Yes 200mg Take 1 Uni vers (VANTIN) 5-14 tablet ity of 200 mg 00:00: (200 mg) [place] tablet 00 by mouth twice Andersclint daily. n Cancer [place] metFORMIN Yes TAKE 1 Univer s (GLUCOPHAGE 5-10 TABLET BY ity of ) 1000 mg 00:00: MOUTH IN [place] tablet 00 THE MD MORNING Anderso AND IN THE n EVENING Cancer WITH MEALS [place] HYDROcodone Yes 2745 1{tbl} Take 1 Un [...] [place] tablet 53 by mouth MD daily. [facility] dicyclomine Yes 10mg Take 1 Univ ers (BENTYL) 10 5-03 capsule ity o f mg capsule 11:42: (10 mg) by [place] kate Ledbetter mouth 3 MD (three) Anderso times a [...] [place] tablet 53 by mouth MD daily. [facility] dicyclomine Yes 10mg Take 1 Univ ers (BENTYL) 10 5-03 capsule ity o f mg capsule 11:42: (10 mg) by [place] harry 3 MD (three) Anderso times a n day. [facility] lisinopril Yes 40mg Take 1 Unive [...] [place] tablet 53 by mouth MD daily. [facility] dicyclomine Yes 10mg Take 1 Univ ers (BENTYL) 10 5-03 capsule ity o f mg capsule 11:42: (10 mg) by [place] love 53 mouth 3 MD (three) Anderso times a n day. Cancer Center gabapentin 2022- Yes Chronic TAKE 1 Un ally (NEURONTIN) - pain TABLET(800 it y of 800 mg 00:00: MG) BY [place] tablet 00 MOUTH MD EVERY 8 Anderso HOURS [facility] gabapentin 2022- Yes Chronic TAKE 1 Un ally (NEURONTIN) 5-02 pain TABLET(800 it y of 800 mg 00:00: MG) BY [place] tablet 00 MOUTH MD EVERY 8 Anderso HOURS [facility] gabapentin 2022- Yes Chronic TAKE 1 Un ally (NEURONTIN) 5-02 pain TABLET(800 it y of 800 mg 00:00: MG) BY [place] tablet 00 MOUTH MD EVERY 8 Anderso HOURS [facility] gabapentin 2022-2022- No Chronic TAKE 1 U nivers (NEURONTIN) 5-02 06-09 pain TABLET(800 i ty of 800 mg 00:00: 00:00 MG) BY [place] tablet 00 :00 MOUTH MD EVERY 8 Anderso HOURS [facility] pseudoephed Yes Chronic 30mg Take 1 U nivers rine 4-28 pain tablet (30 ity of (Sudafed) 00:00: mg) by [place] 30 mg 00 mouth MD tablet every 8 Anderso (eight) n hours as Cancer needed for Center congestion . pseudoephed Yes Chronic 30mg Take 1 U nivers rine 4-28 pain tablet (30 ity of (Sudafed) 00:00: mg) by [place] 30 mg 00 mouth MD tablet every [...] 0 Yes TAKE 1 Unive rs TARTRATE 4-26 TABLET BY ity of 100 mg 00:00: MOUTH [place] tablet 00 TWICE Medical DAILY Branch METOPROLOL 0 Yes TAKE 1 Unive rs TARTRATE 4-26 TABLET BY ity of 100 mg 00:00: MOUTH [place] tablet 00 TWICE Medical DAILY Branch METOPROLOL 0 Yes TAKE 1 Unive rs TARTRATE 4-26 TABLET BY ity of 100 mg 00:00: MOUTH [place] tablet 00 TWICE Medical DAILY Branch METOPROLOL 0 Yes TAKE 1 Unive rs TARTRATE 4-26 TABLET BY ity of 100 mg 00:00: MOUTH [place] tablet 00 TWICE Medical DAILY Branch METOPROLOL 0 Yes TAKE 1 Unive rs TARTRATE 4-26 TABLET BY ity of 100 mg 00:00: MOUTH [place] tablet 00 TWICE Medical DAILY Branch metoprolol 0 Yes TAKE 1 Unive rs succinate 4-26 TABLET BY ity o f (TOPROL XL) 00:00: MOUTH [place] 100 mg 24 00 TWICE MD hr tablet DAILY Anderso n [facility] Center hydrALAZINE 2022- No hypertensio 100mg Take [...] times a n day as Cancer needed. [place] hydrALAZINE 2022- No hypertensio 100mg Take 1 [facility] (APRESOLINE 4-18 04-18 n tablet ity o f ) 100 mg 16:41: 00:00 (100 mg) [place] tablet 23 :00 by mouth 3 MD (three) Anderso times a n day. Cancer [place] hydroCHLORO 2022- No 12.5mg Take 1 U nivers thiazide 4-18 04-18 capsule ity of (MICROZIDE) 16:41: 00:00 (12.5 mg) [place] 12.5 mg 23 :00 by mouth MD capsule every Anderso morning. n Cancer [place] cloNIDine 2022- No .2mg Take 1 Unive rs HCl 4-18 04-18 tablet ity of (CATAPRES) 16:41: 00:00 (0.2 mg) [place] 0.2 mg 23 :00 by mouth 3 MD tablet (three) Anderso times a n day as Cancer needed. [place] hydrALAZINE No hypertensio 100mg Take 1 [facility] (APRESOLINE 4-18 04-18 n tablet ity o f ) 100 mg 16:41: 00:00 (100 mg) [place] tablet 23 :00 by mouth 3 MD (three) Anderso times a n day. [facility] hydroCHLORO No 12.5mg Take 1 U nivers thiazide 4-18 04-18 capsule ity of (MICROZIDE) 16:41: 00:00 (12.5 mg) [place] 12.5 mg 23 :00 by mouth MD capsule every Anderso morning. n [facility] cloNIDine 2022- No .2mg Take 1 Unive rs HCl 4-18 04-18 tablet ity of (CATAPRES) 16:41: 00:00 (0.2 mg) [place] 0.2 mg 23 :00 by mouth 3 MD tablet (three) Anderso times a n day as Cancer needed. [place] hydrALAZINE 2022- No hypertensio 100mg Take 1 [facility] (APRESOLINE 4-18 04-18 n tablet ity o f ) 100 mg 16:41: 00:00 (100 mg) [place] tablet 23 :00 by mouth 3 MD (three) Anderso times a n day. Cancer Center hydroCHLORO 2022- No 12.5mg Take 1 U nivers thiazide 18 18 capsule ity of (MICROZIDE) 16:41: 00:00 (12.5 mg) [place] 12.5 mg 23 :00 by mouth MD capsule every Anderso morning. n Cancer Center cloNIDine 2022- No .2mg Take 1 Unive rs HCl 02-16-18 tablet ity of (CATAPRES) 16:41: 00:00 (0.2 [...] Type 2 Inject Univer s regular hum 02-16 diabetes 70-180 it y of U-500 conc [...] tablet daily for Anderso 3 days. n [facility] levoFLOXaci 2022- No Deep venous 750mg Take 1 Univers n 02-16 thrombosis tablet ity of (LEVAQUIN) 00:00: 04:59 <Unspecifie (750 mg) [place] 750 mg 00 :00 d side> by mouth MD tablet daily for Anderso 3 days. n [facility] levoFLOXaci 2022- No Deep venous 750mg Take 1 Univers n 02-16 thrombosis tablet ity of (LEVAQUIN) 00:00: 04:59 <Unspecifie (750 mg) [place] 750 mg 00 :00 d side> by mouth MD tablet daily for Anderso 3 days. [facility] levoFLOXaci 2022- No Deep venous 750mg Take 1 Univers n 02-16 thrombosis tablet ity of (LEVAQUIN) 00:00: 04:59 <Unspecifie (750 mg) [place] 750 mg 00 :00 d side> by mouth MD tablet daily for Anderso 3 days. n [facility] enoxaparin Yes Deep venous 120mg Inject 0.8 Univers (LOVENOX) 4-14 thrombosis mL (120 i ty of 120 mg/0.8 00:00: <Unspecifie mg) under [place] mL 00 d side> the skin MD prefilled every 12 Lauri o syringe (twelve) n hours. [facility] enoxaparin Yes Deep venous 120mg Inject [...] syringe (twelve) n hours. Cancer Center enoxaparin 2022- No Deep venous 120mg Inject 0.8 Univers (LOVENOX) 4-14 05-31 thrombosis mL (120 ity of 120 mg/0.8 00:00: 00:00 <Unspecifie mg) under [place] mL 00 :00 d side> the skin MD prefilled every 12 Lauri o syringe (twelve) n hours. Cancer [place] oxyCODONE-a 2022- No Neoplasm 1{tbl} Take 1 [...] Yes Adenocarcin 5mL Swish and [facility] (XYLOCAINE) 02-04 yanely of swallow 5 i ty of [...] twice n daily. Cancer Center ondansetron 2023- No Adenoid 8mg Take 1 Univers (ZOFRAN) 8 02-04-06 cystic tablet (8 i ty of mg tablet 00:00: 04:59 carcinoma mg) by [place] 00 :00 of mouth nasopharynx every 8 Suraj so , NOS (eight) n hours as Cancer needed for Center nausea or vomiting. ondansetron 2023- No Adenoid 8mg Take 1 Univers (ZOFRAN) 8 02-04-06 cystic tablet (8 i ty of mg tablet 00:00: 04:59 carcinoma mg) by [place] 00 :00 of mouth MD nasopharynx every 8 Suraj so , NOS (eight) n hours as Cancer needed for Center nausea or vomiting. ondansetron 2023- No Adenoid 8mg Take 1 Univers (ZOFRAN) 8 02-04-06 cystic tablet (8 i ty of mg tablet 00:00: 04:59 carcinoma mg) by [place] 00 :00 of mouth nasopharynx every 8 Suraj so , NOS (eight) n hours as Cancer needed for Center nausea or vomiting. ondansetron 2023- No Adenoid 8mg Take 1 Univers (ZOFRAN) 8 02-04-06 cystic tablet (8 i ty of mg tablet 00:00: 04:59 carcinoma mg) by [place] 00 :00 of mouth nasopharynx every 8 Suraj so , NOS (eight) n hours as Cancer needed for Center nausea or vomiting. insulin 2022- No Type 2 USE Unive rs syringe-nee 4-04 04-18 diabetes DIRECTED ity of dle U-100 1 [...] 5/16 syrg hyperglycem A nderso ia n [facility] insulin 2022- No Type 2 USE Unive rs syringe-nee 02-02 diabetes DIRECTED ity of dle U-100 1 00:00: 00:00 mellitus FOUR TIMES [place] mL 31 gauge 00 :00 with DAILY MD x 5/16 syrg hyperglycem A nderso ia n [facility] oxyCODONE-a 2022- No Chronic 1{tbl} Take 1 Univers cetaminophe 4-03 05-04 pain tablet by it y of n 00:00: 00:00 mouth [place] (PERCOCET) 00 :00 every 6 MD 7.5-325 mg (six) Anderso per tablet hours as n needed for Cancer severe Center pain. oxyCODONE-a 2022- No Chronic 1{tbl} Take 1 [facility] cetaminophe 4-03 05-04 pain tablet by it y of n 00:00: 00:00 mouth [place] (PERCOCET) 00 :00 every 6 MD 7.5-325 mg (six) Anderso per tablet hours as n needed for Cancer severe Center pain. oxyCODONE-a 2022- No Chronic 1{tbl} Take 1 [facility] cetaminophe 4-03 05-04 pain tablet by it y of [...] MD every 8 Anderso (eight) n hours. [facility] gabapentin 2022- No Chronic 800mg Take 1 Univers (NEURONTIN) 02-01 pain tablet ity o f 800 mg 00:00: 00:00 (800 mg) [place] tablet 00 :00 by mouth MD every 8 Anderso (eight) n hours. [facility] gabapentin 2022- No Chronic 800mg Take 1 Univers (NEURONTIN) 02-01 pain tablet ity o f 800 mg 00:00: 00:00 (800 mg) [place] tablet 00 :00 by mouth MD every 8 Anderso (eight) n hours. [facility] gabapentin 2022- No Chronic 800mg Take 1 Univers (NEURONTIN) 02-01 pain tablet ity o f 800 mg 00:00: 00:00 (800 mg) [place] tablet 00 :00 by mouth MD every 8 Anderso (eight) n hours. [facility] pen needle, Yes Type 2 Use to Un ally diabetic 4-02 diabetes inject ity o f (Easy 00:00: mellitus insulin 4 Frankie as Comfort Pen 00 with times a [place]) 31 hyperglycem day A nderso gauge x ia n 03/16" [facility] [place] [facility] pen needle, Yes Type 2 Use to Un ally diabetic 4-02 diabetes inject ity o f (Easy 00:00: mellitus insulin 4 [place]ie as Comfort Pen 00 with times a [place]) 31 hyperglycem day A nderso gauge x ia n 03/16" [facility] [place] [facility] pen needle, Yes Type 2 Use to Un ally diabetic 01-31 diabetes inject ity o f (Easy 00:00: mellitus insulin 4 [place]ie as Comfort Pen 00 with times a MD [place]) 31 hyperglycem day A nderso gauge x ia n 03/16" [facility] [place] [facility] pen needle, Yes Type 2 Use to Un ally diabetic 01-31 diabetes inject ity o f (Easy 00:00: mellitus insulin 4 [place]ie as Comfort Pen 00 with times a MD [place]) 31 hyperglycem day A nderso gauge x [...] 00:00 [place] 00 :00 MD Liane olivier [facility] insulin 2022- No Type 2 Inject 5 [...] 00:00 [place] 00 :00 MD Liane olivier [facility] insulin 2022- No Type 2 Inject 5 [...] 00:00 [place] 00 :00 MD Liane olivier [facility] insulin 2022- No Type 2 Inject 5 [...] MD Liane olivier [facility] naloxone Yes FDC 1 dose Un ally (Narcan) 4 01-20 current use into one ity of mg/actuatio 00:00: of opiate nostril as [place] n nasal 00 analgesic needed for M D spray opioid [place]o overdose. 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 Center xyloxylin 2022- No Ulcerative 10mL Swish and [facility] oral 01-20-18 oral swallow 10 ity of suspension 00:00: 00:00 mucositis mL 2 (two) [place] (AMB-CMPD) 00 :00 due to times a MD antineoplas day as Lauri o tic therapy needed for n mouth Cancer pain. [place] xyloxylin 2022- No Ulcerative 10mL Swish and [facility] oral 01-20-18 oral swallow 10 ity of suspension 00:00: 00:00 mucositis mL 2 (two) [place] (AMB-CMPD) 00 :00 due to times a MD antineoplas day as Lauri o tic therapy needed for n mouth Cancer pain. [place] xyloxylin 2022- No Ulcerative 10mL Swish and [facility] oral 01-20-18 oral swallow 10 ity of suspension 00:00: 00:00 mucositis mL 2 (two) [place] (AMB-CMPD) 00 :00 due to times a MD antineoplas day as Lauri o tic therapy needed for n mouth Cancer pain. [place] hydrALAZINE 2022- No 100mg Take 1 Un [...] times a n day with Cancer meals. [place] spironolact 2022- No 25mg Take 1 Uni vers one 3-20 03-20 tablet (25 ity of (ALDACTONE) 19:34: 00:00 mg) by [place] as 25 mg 54 :00 mouth MD tablet [facility]. [facility] hydrALAZINE 2022- No 100mg Take 1 Un [...] times a n day with Cancer meals. [place] spironolact 2022-0 2022- No 25mg Take 1 Uni vers one 3-20 03-20 tablet (25 ity of (ALDACTONE) 19:34: 00:00 mg) by [place] as 25 mg 54 :00 mouth MD tablet daily. [facility] hydrALAZINE 2022-0 2022- No 100mg Take 1 Un ally (APRESOLINE 3-20 03-20 tablet ity o f ) 100 mg 19:34: 00:00 (100 mg) [place] tablet 54 :00 by mouth 3 MD (three) Anderso times a n day. [facility] metFORMIN 2022-0 2022- No 1000mg Take 1 Uni vers (GLUCOPHAGE 3-20 03-20 tablet ity o f ) 1000 mg 19:34: 00:00 (1,000 mg) [place] tablet 54 :00 by mouth 2 MD (two) Anderso times a n day with Cancer meals. [place] spironolact 2022-0 2022- No 25mg Take 1 Uni vers one 3-20 03-20 tablet (25 ity of (ALDACTONE) 19:34: 00:00 mg) by [place] as 25 mg 54 :00 mouth MD tablet daily. [facility] hydrALAZINE 2022-0 2022- No 100mg Take 1 Un ally (APRESOLINE 3-20 03-20 tablet ity o f ) 100 mg 19:34: 00:00 (100 mg) [place] tablet 54 :00 by mouth 3 MD (three) Anderso times a n day. [facility] metFORMIN 2022-0 2022- No 1000mg Take 1 Uni vers (GLUCOPHAGE 3-20 03-20 tablet ity o f ) 1000 mg 19:34: 00:00 (1,000 mg) [place] tablet 54 :00 by mouth 2 MD (two) Anderso times a n day with Cancer meals. [place] spironolact 2022-0 2022- No 25mg Take 1 Uni vers one 3-20 03-20 tablet (25 ity of (ALDACTONE) 19:34: 00:00 mg) by [place] as 25 mg 54 :00 mouth MD tablet daily. Liane olivier [facility] metoprolol No Hypertensio 50mg Take 1 Univers tartrate 3-20 04-20 n tablet (50 ity of (LOPRESSOR) 00:00: 04:59 mg) by [place] 50 mg 00 :00 mouth MD tablet twice Anderso daily for n 30 days. [facility] metoprolol No Hypertensio 50mg Take 1 [facility] tartrate 3-20 04-20 n tablet (50 ity of (LOPRESSOR) 00:00: 04:59 mg) by [place] as 50 mg 00 :00 mouth MD tablet twice Anderso daily for n 30 days. [facility] metoprolol No Hypertensio 50mg Take 1 Univers tartrate 3-20 04-20 n tablet (50 ity of (LOPRESSOR) 00:00: 04:59 mg) by [place] 50 mg 00 :00 mouth MD tablet twice Anderso daily for n 30 days. [facility] metoprolol No Hypertensio 50mg Take 1 [facility] tartrate 3-20 04-20 n tablet (50 ity of (LOPRESSOR) 00:00: 04:59 mg) by [place] as 50 mg 00 :00 mouth MD tablet twice Anderso daily for n 30 days. [facility] sucralfate No Ulcerative 1000mg Take 10 mL Univers (CARAFATE) 01-18-18 oral (1,000 mg) it y of 100 mg/mL 00:00: 00:00 mucositis by mouth 4 [place] suspension 00 :00 due to (four) antineoplas times a Suraj so tic therapy day. n Cancer Center UNABLE TO 2022- No Compound Uni vers FIND -18 Drug ity of 00:00: 00:00 [place] 00 :00 MD Liane olivier [facility] sucralfate No Ulcerative 1000mg Take 10 mL Univers (CARAFATE) 01-18-18 oral (1,000 mg) it y of 100 mg/mL 00:00: 00:00 mucositis by mouth 4 [place] suspension 00 :00 due to (four) antineoplas times a Suraj so tic therapy day. n Cancer Center UNABLE TO Compound Uni vers FIND 01-18 Drug ity of 00:00: 00:00 [place] 00 :00 MD Liane olivier Cancer [place] sucralfate No Ulcerative 1000mg Take 10 mL Univers (CARAFATE) 01-18 oral (1,000 mg) it y of 100 mg/mL 00:00: 00:00 mucositis by mouth 4 [place] suspension 00 :00 due to (four) antineana luisaas times a Suraj so tic therapy day. n Cancer Center UNABLE TO Compound Uni vers FIND 01-18 Drug ity of 00:00: 00:00 [place] 00 :00 MD Liane olivier Cancer [place] sucralfate Ulcerative 1000mg Take 10 mL Univers (CARAFATE) 01-18 oral (1,000 mg) it y of 100 mg/mL 00:00: 00:00 mucositis by mouth 4 [place] suspension 00 :00 due to (four) antinekrystin times a Suraj so tic therapy day. n Cancer Center UNABLE TO Compound Uni vers FIND 01-18 Drug ity of 00:00: 00:00 [place] 00 :00 MD Liane olivier [facility] oxyCODONE-a 2022- No Neoplasm 1{tbl} Take [...] 14:58 [place] 00 :12 MD Liane olivier [facility] insulin 2022- No Type 2 50U [...] 14:58 [place] 00 :12 MD Liane olivier [facility] insulin 2022- No Type 2 50U [...] directed. ity o f needle 00:00: 14:58 [place] 00 :12 MD Liane olivier [facility] [...] directed. ity o f needle 00:00: 14:58 [place] 00 :12 MD Liane olivier [facility] [...] of suspension 00:00: 00:00 mucositis mL by [place] [facility] 00 :00 due to mouth MD antineoplas [...] of suspension 00:00: 00:00 mucositis mL by [place] [facility] 00 :00 due to mouth MD antineoplas [...] of suspension 00:00: 00:00 mucositis mL by [place] ([facility]) 00 :00 due to mouth MD antineoplas every 6 Suraj so tic therapy (six) n hours as Cancer needed for Center mouth pain. oxyCODONE-a 2022- No Neoplasm 1{tbl} Take 1 [facility] cetaminophe 3-20 03-20 related tablet by ity of n 00:00: 00:00 pain mouth [place] (Percocet) 00 :00 (acute) every 4 MD 5 mg-325 mg (chronic) (four) A nderso per tablet hours as n needed for Cancer moderate Center pain. xyloxylin 2022- No Ulcerative 10mL Swish and [facility] oral 3-20 03-20 oral swallow 10 ity of suspension 00:00: [...] Ulcerative 10mL Swish and [facility] oral 3-20 03-20 oral swallow 10 ity of suspension 00:00: 00:00 mucositis mL every 6 [place] (AMB-CMPD) 00 :00 due to (six) MD antineoplas hours as Bandar rso tic therapy needed for n mouth Cancer pain. Center oxyCODONE-a 2022- No Neoplasm 1{tbl} Take 1 [facility] cetaminophe 3-20 -20 related tablet by ity of n 00:00: 00:00 pain mouth [place] (Percocet) 00 :00 (acute) every 4 MD 5 mg-325 mg (chronic) (four) A nderso per tablet hours as n needed for Cancer moderate Center pain. xyloxylin 2022- No Ulcerative 10mL Swish and [facility] oral 3-20 03-20 oral swallow 10 ity of suspension 00:00: 00:00 mucositis mL every 6 [place] (AMB-CMPD) 00 :00 due to (six) MD antineoplas hours as [place] rso tic therapy needed for n mouth Cancer pain. Center sucralfate 2022- No Ulcerative 1000mg Take 10 mL [facility] (CARAFATE) 3-20 03-20 oral (1,000 mg) it y of 100 [...] Ulcerative 10mL Swish and [facility] oral 3-20 03-20 oral swallow 10 ity of suspension 00:00: 00:00 mucositis mL every 6 [place] (AMB-CMPD) 00 :00 due to (six) MD antineoplas hours as [place] rso tic therapy needed for n mouth Cancer pain. Center oxyCODONE-a 2022- No Neoplasm 1{tbl} Take 1 [facility] cetaminophe 3-20 03-20 related tablet by ity of n 00:00: [...] No Hypertensio 50mg Take 1 [facility] tartrate -18 01-20 n tablet (50 ity of (LOPRESSOR) 00:00: 00:00 mg) by [place] as 50 mg 00 :00 mouth MD tablet twice Anderso daily for n 30 days. Cancer Center sucralfate 2022- No Ulcerative 1000mg Take 10 mL [facility] (CARAFATE) 3-18 01-20 oral (1,000 mg) it y of 100 [...] Neoplasm 1{tbl} Take 1 [facility] cetaminophe 3-20 -20 related tablet by ity of n 00:00: [...] No Neoplasm 1{tbl} Take 1 [facility] cetaminophe 3-01 01-14 related tablet by ity of n 00:00: 00:00 pain mouth [place] (Percocet) 00 :00 (acute) every 4 MD 5 mg-325 mg (chronic) (four) A nderso per tablet hours as n needed for Cancer moderate Center pain. oxyCODONE-a 2022- No Neoplasm 1{tbl} Take 1 [facility] cetaminophe 3-01 01-14 related tablet by ity of n 00:00: 00:00 pain mouth [place] (Percocet) 00 :00 (acute) every 4 MD 5 mg-325 mg (chronic) (four) A nderso per tablet hours as n needed for Cancer moderate Center pain. oxyCODONE-a 2022- No Neoplasm 1{tbl} Take 1 [facility] cetaminophe 3- 03-14 related tablet by ity of n 00:00: 00:00 pain mouth [place] (Percocet) 00 :00 (acute) every 4 MD 5 mg-325 mg (chronic) (four) A nderso per tablet hours as n needed for Cancer moderate Center pain. oxyCODONE-a 2022- No Neoplasm 1{tbl} Take 1 [facility] cetaminophe 3-03 03-14 related tablet by ity of n 00:00: [...] Cancer 30mg Take 1 U nivers rine -11 03-14 associated tablet (30 it y of (Sudafed) 00:00: 00:00 pain mg) by [place] 30 mg 00 :00 mouth 2 MD tablet (two) Anderso times a n day as Cancer needed for Center congestion . pseudoephed 2022-2022- No Cancer 30mg Take 1 U nivers rine 12-3014 associated tablet (30 it y of (Sudafed) 00:00: 00:00 pain mg) by [place] 30 mg 00 :00 mouth 2 MD tablet (two) Anderso times a n day as Cancer needed for Center congestion . pseudoephed 2022- No Cancer 30mg Take 1 U nivers rine 12-3014 associated tablet (30 it y of (Sudafed) [...] Cancer catheter Center daily as directed. sodium 3-0 2022- No Adenoid Inject 10 Un ally [...] mg 00:00: 00:00 nasopharynx mg) on the [place] disintegrat 00 :00 tongue MD ing tablet [...] No Adenocarcin 8mg Dissolve 1 Univers (ZOFRAN-ODT 2-17 yanely of tablet (8 ity of ) 8 mg 00:00: 00:00 nasopharynx mg) on the [place] disintegrat 00 :00 tongue MD ing tablet every 8 Lauri o (eight) n hours as Cancer needed for Center nausea. ondansetron No Adenocarcin 8mg Dissolve 1 Univers (ZOFRAN-ODT 217 17 yanely of tablet (8 ity of ) 8 mg 00:00: 00:00 nasopharynx mg) on the [place] disintegrat 00 :00 tongue MD ing tablet every 8 Lauri o (eight) n hours as Cancer needed for Center nausea. prochlorper Yes Adenoid 10mg Take 1 U nivers azine 2-16 cystic tablet (10 ity of (Compazine) 00:00: carcinoma mg) by [place] 10 mg 00 of mouth MD tablet nasopharynx every 6 And erso , NOS (six) n hours as Cancer needed for Center nausea or vomiting (if not controlled by Ondansetro n). prochlorper Yes Adenoid 10mg Take 1 U nivers azine 2-16 cystic tablet (10 ity of (Compazine) 00:00: carcinoma mg) by [place] 10 mg 00 of mouth MD tablet nasopharynx every 6 And erso , NOS (six) n hours as Cancer needed for Center nausea or vomiting (if not controlled by Ondansetro n). prochlorper Yes Adenoid 10mg Take 1 U nivers azine 2-16 cystic tablet (10 ity of (Compazine) 00:00: carcinoma mg) by [place] 10 mg 00 of mouth MD tablet nasopharynx every 6 And erso , NOS (six) n hours as Cancer needed for Center nausea or vomiting (if not controlled by Ondansetro n). prochlorper Yes Adenoid 10mg Take 1 U nivers azine 2-16 cystic tablet (10 ity of (Compazine) 00:00: carcinoma mg) by [place] 10 mg 00 of mouth MD tablet nasopharynx every 6 And erso , NOS (six) n hours as Cancer needed for Center nausea or vomiting (if not controlled by Ondansetro n). ondansetron 2022- No Adenoid 8mg Take 1 Univers (ZOFRAN) 8 2-16 04-06 cystic tablet (8 i ty of mg tablet 00:00: 00:00 carcinoma mg) by [place] 00 :00 of mouth MD nasopharynx every 8 Suraj so , NOS (eight) n hours as Cancer needed for Center nausea or vomiting. ondansetron 2022-0 2022- No Adenoid 8mg Take 1 Univers (ZOFRAN) 8 2-16 04-06 cystic tablet (8 i ty of mg tablet 00:00: 00:00 carcinoma mg) by [place] 00 :00 of mouth nasopharynx every 8 Suraj so , NOS (eight) n hours as Cancer needed for Center nausea or vomiting. ondansetron 2022-0 2022- No Adenoid 8mg Take 1 Univers (ZOFRAN) 8 2-16 04-06 cystic tablet (8 i ty of mg tablet 00:00: 00:00 carcinoma mg) by [place] 00 :00 of mouth nasopharynx every 8 Suraj so , NOS (eight) n hours as Cancer needed for Center nausea or vomiting. ondansetron 2022-0 2022- No Adenoid 8mg Take 1 Univers (ZOFRAN) 8 2-16 04-06 cystic tablet (8 i ty of [...] 00 :00 of 30 days. gel nasopharynx Andevelin , NOS n Cancer Center fluoride, 2022- No Adenoid Apply to Univers sodium, 2-15 03-14 cystic teeth ity of (DENTAGEL) 00:00: 00:00 carcinoma daily for [place] 1.1% dental 00 :00 of 30 days. 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 MD [place] nasopharynx MYLA Rob [facility] celecoxib 2022- No Headache, 200mg Take 1 Univers (CeleBREX) 12-16 not capsule ity o f 200 mg 00:00: 00:00 otherwise (200 mg) [place] capsule 00 :00 specified by mouth daily. [facility] celecoxib 2022- No Headache, 200mg Take 1 Univers (CeleBREX) 12-16 not capsule ity o f 200 mg 00:00: 00:00 otherwise (200 mg) [place] capsule 00 :00 specified by mouth daily. [facility] celecoxib 2022- No Headache, 200mg Take 1 Univers (CeleBREX) 12-16 not capsule ity o f 200 mg 00:00: 00:00 otherwise (200 mg) [place] capsule 00 :00 specified by mouth daily. [facility] celecoxib 2022- No Headache, 200mg Take 1 Univers (CeleBREX) 12-16 not capsule ity o f 200 mg 00:00: 00:00 otherwise (200 mg) [place] capsule 00 :00 specified by mouth MD daily. [facility] Victoza Yes Type 2 1.8mg Inject 0.3 U nivers 2-Patrick 0.6 2-14 diabetes mL (1.8 ity of mg/0.1 mL 00:00: mellitus mg) under [place] (18 mg/3 00 without the skin MD mL) pnij complicatio daily. An derso injection [facility] Victoza Yes Type 2 1.8mg Inject 0.3 U nivers 2-Patrick 0.6 2-14 diabetes mL (1.8 ity of mg/0.1 mL 00:00: mellitus mg) under [place] (18 mg/3 00 without the skin MD mL) pnij complicatio daily. An derso injection [facility] Victoza Yes Type 2 1.8mg Inject 0.3 U nivers 2-Patrick 0.6 2-14 diabetes mL (1.8 ity of mg/0.1 mL 00:00: mellitus mg) under [place] (18 mg/3 00 without the skin MD mL) pnij complicatio daily. An derso injection n n Cancer [place] Victoza Yes Type 2 1.8mg Inject 0.3 U nivers 2-Patrick 0.6 2-14 diabetes mL (1.8 ity of mg/0.1 mL 00:00: mellitus mg) under [place] (18 mg/3 00 without the skin MD mL) pnij complicatio daily. An derso injection n n [facility] 2022- No Type 2 1{devic Inject 1 Univers Gen Pen 12-15- diabetes e} Device ity o f Needle [...] 8 Anderso (eight) n hours. Cancer Center [facility] 2022- No Type 2 1{devic Inject 1 [...] every 8 Anderso (eight) n hours. Cancer [facility] 2022- No Type 2 1{devic Inject [...] MD every 8 Anderso (eight) n hours. [facility] BD Devorah 2nd 2022- No Type 2 1{devic Inject 1 Univers Gen Pen 12-15 diabetes e} Device ity o f Needle 32 00:00: 00:00 mellitus under the [place] gauge x 00 :00 without skin 3 MD " ndle complicatio (three) Anderso n times a n day before Cancer meals. [place] gabapentin 2022- No Headache, 600mg Take 1 Univers (NEURONTIN) 12-15 not tablet ity o f 600 mg 00:00: 00:00 otherwise (600 mg) [place] tablet 00 :00 specified by mouth MD every 8 Anderso (eight) n hours. [facility] metoprolol 2022- No Hypertensio 50mg Take 1 Univers tartrate 12-15-20 n tablet (50 ity of (LOPRESSOR) 00:00: 00:00 mg) by [place] 50 mg 00 :00 mouth MD tablet twice Anderso daily for n 30 days. [facility] insulin 2022- No Type 2 110U Inject Unive rs regular hum 12-15-20 diabetes 110-160 ity of U-500 conc 00:00: 00:00 mellitus Units [place] (HumuLIN R 00 :00 without under the M D U-500, complicatio skin 3 [facility], n (three) n Kwikpen) times a Cancer 500 unit/mL day before Ce nter (3 mL) meals. insulin pen metoprolol 2022- No Hypertensio 50mg Take 1 Univers tartrate 12-15-20 n tablet (50 ity of (LOPRESSOR) 00:00: 00:00 mg) by [place] as 50 mg 00 :00 mouth MD tablet twice [place]o daily for n 30 days. [facility] insulin 2022- No Type 2 110U Inject [...] twice Anderso daily for n 30 days. [facility] insulin No Type 2 110U Inject [facility] regular hum 12-15 diabetes 110-160 ity of [...] twice Anderso daily for n 30 days. [facility] insulin 2022- No Type 2 110U Inject [facility] regular hum 12-15 diabetes 110-160 ity of [...] nter (3 mL) meals. insulin pen pantoprazol Gastroesoph 40mg Take 1 Univers e 12-15 [...] 2 110U Inject 110 U nivers regular [facility] 12-15 diabetes to 160 i ty of [...] 2 110U Inject 110 U nivers regular [facility] 12-15 diabetes to 160 i ty of [...] Cancer breakfast Center for 30 days. dexamethaso 202-0 202- No Adenocarcin 2mg Take 1 Univers ne 2- 03-14 yanely of tablet (2 ity of (DECADRON) 00:00: 00:00 nasopharynx mg) by [place] 2 mg tablet 00 :00 mouth MD twice Anderso daily. [facility] dexamethaso 2022-0 202- No Adenocarcin 2mg Take 1 Univers ne 2- 03-14 yanely of tablet (2 ity of (DECADRON) 00:00: 00:00 nasopharynx mg) by [place] 2 mg tablet 00 :00 mouth MD twice Anderso daily. [facility] dexamethaso 2022-0 202- No Adenocarcin 2mg Take 1 Univers ne 2- 03-14 yanely of tablet (2 ity of (DECADRON) 00:00: 00:00 nasopharynx mg) by [place] 2 mg tablet 00 :00 mouth MD twice Anderso daily. [facility] dexamethaso 2022-0 2022- No Adenocarcin 2mg Take 1 Univers ne 2- 03-14 yanely of tablet (2 ity of (DECADRON) 00:00: 00:00 nasopharynx mg) by [place] 2 mg tablet 00 :00 mouth MD twice Anderso daily. [facility] HYDROmorpho 2022-0 2022- No Adenocarcin 2mg Take 1 Univers ne 2- 02-14 yanely of tablet (2 ity of (DILAUDID) 00:00: 00:00 nasopharynx mg) by [place] 2 mg tablet 00 :00 mouth MD every 4 Anderso (four) n hours as Cancer needed Center (cancer pain). HYDROmorpho 2022-0 202- No Adenocarcin 2mg Take 1 Univers ne 2- 02-14 yanely of tablet (2 ity of (DILAUDID) 00:00: 00:00 nasopharynx mg) by [place] 2 mg tablet 00 :00 mouth MD every 4 Anderso (four) n hours as Cancer needed Center (cancer pain). HYDROmorpho 2023-0 202- No Adenocarcin 2mg Take 1 Univers ne 2- 02-14 yanely of tablet (2 ity of [...] for Pain. Indication s: chronic pain HYDROcodone 2023-0 Yes [id number] 1{tbl} Take 1 Un ally -acetaminop 1-18 tablet by ity of hen 7.5-325 00:00: mouth [place] mg per 00 every 6 Medical tablet (six) Branch hours as needed for Pain. Indication s: chronic pain colchicine 2023-0 Yes [id number] .6mg Take 1 U nivers 0.6 mg 1-18 tablet by ity of tablet 00:00: mouth in [place] the Medical morning. Branch HYDROcodone 3-0 Yes [id number] 1{tbl} Take 1 Un ally -acetaminop 1-18 tablet by ity of hen 7.5-325 00:00: mouth [place] mg per 00 every 6 Medical tablet (six) Branch hours as needed for Pain. Indication s: chronic pain colchicine 3-0 Yes [id number] .6mg Take 1 U nivers 0.6 mg 1-18 tablet by ity of tablet 00:00: mouth in [place] the Medical morning. Branch colchicine 2023-0 Yes [id number] .6mg Take 1 U nivers 0.6 mg 1-18 tablet by ity of tablet 00:00: mouth in [place] the Medical morning. Branch colchicine 2023-0 Yes [id number] .6mg Take 1 U nivers 0.6 mg 1-18 tablet by ity of tablet 00:00: mouth in [place] the Medical morning. Branch colchicine 2023-0 Yes [id number] .6mg Take 1 U nivers 0.6 mg 1-18 tablet by ity of tablet 00:00: mouth in [place] the Medical morning. Branch colchicine 2023-0 Yes [id number] .6mg Take 1 U nivers 0.6 mg 1-18 tablet by ity of tablet 00:00: mouth in [place] the Medical morning. Branch colchicine 2023-0 Yes [id number] .6mg Take 1 U nivers 0.6 mg 1-18 tablet by ity of tablet 00:00: mouth in [place] the Medical morning. Branch colchicine 2023-0 Yes [id number] .6mg Take 1 U nivers 0.6 mg 1-18 tablet by ity of tablet 00:00: mouth in [place] the Medical morning. Branch colchicine Yes [id number] .6mg Take 1 U nivers 0.6 mg 1-18 tablet by ity of tablet 00:00: mouth in [place] the morning. Branch HYDROcodone 2022- No 2745 1{tbl} Take 1 U nivers -acetaminop 1-18 02-23 tablet by it y of hen 7.5-325 00:00: 00:00 mouth [place] mg per 00 :00 every 6 Medical tablet (six) Branch hours as needed for Pain. Indication s: chronic pain HumuLIN 2022- No Univers 70/30 U-100 11-1614 ity of Insulin 100 00:00: 00:00 [place] unit/mL 00 :00 (70-30) [facility] 2022- No Univers 70/30 U-100 11-1614 ity of Insulin 100 00:00: 00:00 [place] unit/mL 00 :00 (70-30) Anderso injection [facility] HumuLIN 2022- No Univers 70/30 U-100 11-16-14 ity of Insulin 100 00:00: 00:00 [place] unit/mL 00 :00 (70-30) Anderso injection [facility] HumuLIN 2022- No Univers 70/30 U-100 11-1614 ity of Insulin 100 00:00: 00:00 [place] unit/mL 00 :00 (70-30) [facility] HYDROCHLORO Yes [id number] 12.5mg TAKE 1 Univers THIAZIDE 1-09 CAPSULE BY ity o f 12.5 mg 00:00: MOUTH [place] capsule 00 DAILY Medical Branch LISINOPRIL 0 Yes [id number] TAKE 1/2 Univers 40 mg 1-09 TABLET BY ity of tablet 00:00: MOUTH [place] 00 TWICE Medical DAILY Branch HYDRALAZINE 0 Yes [id number] TAKE 1 Univers 100 mg 1-09 TABLET BY ity of tablet 00:00: MOUTH [place] 00 THREE Medical TIMES Branch DAILY HYDROCHLORO 2022-0 Yes [id number] 12.5mg TAKE 1 Univers THIAZIDE 1-09 CAPSULE BY ity o f 12.5 mg 00:00: MOUTH [place] capsule 00 DAILY Medical Branch LISINOPRIL 2023-0 Yes [id number] TAKE 1/2 Univers 40 mg 1-09 TABLET BY ity of tablet 00:00: MOUTH [place] 00 TWICE Medical DAILY Branch HYDRALAZINE 2023-0 Yes [id number] TAKE 1 Univers 100 mg 1-09 TABLET BY ity of tablet 00:00: MOUTH [place] 00 THREE Medical TIMES Branch DAILY HYDROCHLORO 2023-0 Yes [id number] 12.5mg TAKE 1 Univers THIAZIDE 1-09 CAPSULE BY ity o f 12.5 mg 00:00: MOUTH [place] capsule 00 DAILY Medical Branch LISINOPRIL 3-0 Yes [id number] TAKE 1/2 Univers 40 mg 1-09 TABLET BY ity of tablet 00:00: MOUTH [place] 00 TWICE Medical DAILY Branch HYDRALAZINE 3-0 Yes [id number] TAKE 1 Univers 100 mg 1-09 TABLET BY ity of tablet 00:00: MOUTH [place] THREE Medical TIMES Branch DAILY HYDROCHLORO 3-0 Yes [id number] 12.5mg TAKE 1 Univers THIAZIDE 1-09 CAPSULE BY ity o f 12.5 mg 00:00: MOUTH [place] capsule 00 DAILY Medical Branch LISINOPRIL 3-0 Yes [id number] TAKE 1/2 Univers 40 mg 1-09 TABLET BY ity of tablet 00:00: MOUTH [place] 00 TWICE Medical DAILY Branch HYDRALAZINE 3-0 Yes [id number] TAKE 1 Univers 100 mg 1-09 TABLET BY ity of tablet 00:00: MOUTH [place] THREE Medical TIMES Branch DAILY HYDROCHLORO 2023-0 Yes [id number] 12.5mg TAKE 1 Univers THIAZIDE 1-09 CAPSULE BY ity o f 12.5 mg 00:00: MOUTH [place] capsule 00 DAILY Medical Branch LISINOPRIL 2023-0 Yes [id number] TAKE 1/2 Univers 40 mg 1-09 TABLET BY ity of tablet 00:00: MOUTH [place] 00 TWICE Medical DAILY Branch HYDRALAZINE 2023-0 Yes [id number] TAKE 1 Univers 100 mg 1-09 TABLET BY ity of tablet 00:00: MOUTH [place] 00 THREE Medical TIMES Branch DAILY HYDROCHLORO 2023-0 Yes [id number] 12.5mg TAKE 1 Univers THIAZIDE 1-09 CAPSULE BY ity o f 12.5 mg 00:00: MOUTH [place] capsule 00 DAILY Medical Branch LISINOPRIL 2023-0 Yes [id number] TAKE 1/2 Univers 40 mg 1-09 TABLET BY ity of tablet 00:00: MOUTH [place] 00 TWICE Medical DAILY Branch HYDRALAZINE 2022-0 Yes [id number] TAKE 1 Univers 100 mg 1-09 TABLET BY ity of tablet 00:00: MOUTH [place] THREE Medical TIMES Branch DAILY HYDROCHLORO 2022-0 Yes [id number] 12.5mg TAKE 1 Univers THIAZIDE 1-09 CAPSULE BY ity o f 12.5 mg 00:00: MOUTH [place] capsule 00 DAILY Medical Branch LISINOPRIL 2022-0 Yes [id number] TAKE 1/2 Univers 40 mg 1-09 TABLET BY ity of tablet 00:00: MOUTH [place] 00 TWICE Medical DAILY Branch HYDRALAZINE 2022-0 Yes [id number] TAKE 1 Univers 100 mg 1-09 TABLET BY ity of tablet 00:00: MOUTH [place] THREE Medical TIMES Branch DAILY HYDROCHLORO 2022-0 Yes [id number] 12.5mg TAKE 1 Univers THIAZIDE 1-09 CAPSULE BY ity o f 12.5 mg 00:00: MOUTH [place] capsule 00 DAILY Medical Branch LISINOPRIL 2022-0 Yes [id number] TAKE 1/2 Univers 40 mg 1-09 TABLET BY ity of tablet 00:00: MOUTH [place] 00 TWICE Medical DAILY Branch HYDRALAZINE 2022-0 Yes [id number] TAKE 1 Univers 100 mg 1-09 TABLET BY ity of tablet 00:00: MOUTH [place] 00 THREE Medical TIMES Branch DAILY HYDROCHLORO 2022-0 Yes [id number] 12.5mg TAKE 1 Univers THIAZIDE 1-09 CAPSULE BY ity o f 12.5 mg 00:00: MOUTH [place] capsule 00 DAILY Medical Branch LISINOPRIL 2022-0 Yes [id number] TAKE 1/2 Univers 40 mg 1-09 TABLET BY ity of tablet 00:00: MOUTH [place] 00 TWICE Medical DAILY Branch HYDRALAZINE 3-0 Yes [id number] TAKE 1 Univers 100 mg 1-09 TABLET BY ity of tablet 00:00: MOUTH [place] 00 THREE Medical TIMES Branch DAILY HYDROCHLORO 3-0 Yes [id number] 12.5mg TAKE 1 Univers THIAZIDE 1-09 CAPSULE BY ity o f 12.5 mg 00:00: MOUTH [place] capsule 00 DAILY Medical Branch LISINOPRIL 3-0 Yes [id number] TAKE 1/2 Univers 40 mg 1-09 TABLET BY ity of tablet 00:00: MOUTH [place] 00 TWICE Medical DAILY Branch HYDRALAZINE 2022-0 Yes [id number] TAKE 1 Univers 100 mg 1-09 TABLET BY ity of tablet 00:00: MOUTH [place] 00 THREE Medical TIMES Branch DAILY HYDROCHLORO 2022-0 Yes [id number] 12.5mg TAKE 1 Univers THIAZIDE - CAPSULE BY ity o f 12.5 mg 00:00: MOUTH [place] capsule 00 DAILY Medical Branch LISINOPRIL 2022-0 Yes [id number] TAKE 1/2 Univers 40 mg 1-09 TABLET BY ity of tablet 00:00: MOUTH [place] 00 TWICE Medical DAILY Branch HYDRALAZINE 2022-0 Yes [id number] TAKE 1 Univers 100 mg 1-09 TABLET BY ity of tablet 00:00: MOUTH [place] THREE Medical TIMES Branch DAILY HYDROCHLORO 2022-0 Yes [id number] 12.5mg TAKE 1 Univers THIAZIDE 11-09 CAPSULE BY ity o f 12.5 mg 00:00: MOUTH [place] capsule 00 DAILY Medical Branch LISINOPRIL 2022-0 Yes [id number] TAKE 1/2 Univers 40 mg 1-09 TABLET BY ity of tablet 00:00: MOUTH [place] 00 TWICE Medical DAILY Branch HYDRALAZINE 2022-0 Yes [id number] TAKE 1 Univers 100 mg 1-09 TABLET BY ity of tablet 00:00: MOUTH [place] 00 THREE Medical TIMES Branch DAILY hydroCHLORO 2022- No 12.5mg 1 capsule [facility] thiazide 11-09 (12.5 mg) ity o f (MICROZIDE) 00:00: 00:00 [place] 12.5 mg 00 :00 morning. MD restrepo [facility] hydroCHLORO 2022- No 12.5mg 1 capsule Univers thiazide 11-09 (12.5 mg) ity o f (MICROZIDE) 00:00: 00:00 every [place] 12.5 mg 00 :00 morning. MD restrepo [facility] hydroCHLORO 2022- No 12.5mg 1 capsule [facility] thiazide 11-09 (12.5 mg) ity o f (MICROZIDE) 00:00: 00:00 every [place] 12.5 mg 00 :00 morning. MD restrepo [facility] hydroCHLORO 2022- No 12.5mg 1 capsule [facility] thiazide 11-09 (12.5 mg) ity o f (MICROZIDE) 00:00: 00:00 every [place] 12.5 mg 00 :00 morning. MD capsule Anderso n [facility] cloNIDine 2022- No TAKE 1 Unive rs HCl 11-0920 TABLET BY ity of (CATAPRES) 00:00: 00:00 MOUTH [place] 0.2 mg 00 :00 THREE MD tablet TIMES Anderso DAILY n [facility] cloNIDine 2022- No TAKE 1 Unive rs HCl 11-0920 TABLET BY ity of (CATAPRES) 00:00: 00:00 MOUTH [place] 0.2 mg 00 :00 THREE MD tablet TIMES Anderso DAILY n [facility] cloNIDine 2022- No TAKE 1 Unive rs HCl 11-0920 TABLET BY ity of (CATAPRES) 00:00: 00:00 MOUTH [place] 0.2 mg 00 :00 THREE MD tablet TIMES Anderso DAILY n [facility] cloNIDine 2022- No TAKE 1 Unive rs HCl 11-0920 TABLET BY ity of (CATAPRES) 00:00: 00:00 MOUTH [place] 0.2 mg 00 :00 THREE MD tablet TIMES Anderso DAILY n [facility] hydrocortis 2022- No UNWRAP AND Univers one 11-06 INSERT ONE ity of (ANUSOL-HC) 00:00: 00:00 (1) [place] 25 mg 00 :00 SUPPOSITOR MD suppository Y IN THE [facility] [facility] RECTUM n TWICE A Cancer DAY. [place] hydrocortis 2022- No UNWRAP AND Univers one 11-06 INSERT ONE ity of (ANUSOL-HC) 00:00: 00:00 (1) [place] 25 mg 00 :00 SUPPOSITOR MD suppository Y IN THE [place] [facility] RECTUM n TWICE A Cancer DAY. [place] hydrocortis 2022- No UNWRAP AND Univers one 11-06 INSERT ONE ity of (ANUSOL-HC) 00:00: 00:00 (1) [place] 25 mg 00 :00 SUPPOSITOR MD suppository Y IN THE [facility] [facility] RECTUM n TWICE A Cancer DAY. [place] hydrocortis 2022- No UNWRAP AND Univers one 11-06- INSERT ONE ity of (ANUSOL-HC) 00:00: 00:00 (1) [place] 25 mg 00 :00 SUPPOSITOR MD suppository Y IN THE [facility] [facility] RECTUM n TWICE A Cancer DAY. [place] METOPROLOL Yes TAKE 1 Unive rs TARTRATE [...] No TAKE 1 Univ ers TARTRATE 1-03 04-26 TABLET BY ity o f 100 mg 00:00: 00:00 MOUTH [place] tablet 00 :00 TWICE Medical DAILY Branch metoprolol 2022- No TAKE 1 Univ ers tartrate 1-03 02-14 TABLET BY ity o f (LOPRESSOR) 00:00: 00:00 MOUTH [place] 100 mg 00 :00 TWICE MD tablet DAILY Anderso n [facility] metoprolol 2022- No TAKE 1 Univ ers tartrate 11-03 TABLET BY ity o f (LOPRESSOR) 00:00: 00:00 M[place]TH [place] 100 mg 00 :00 TWICE [facility] 1 Univ ers tartrate 11-03 TABLET BY ity o f (LOPRESSOR) 00:00: 00:00 MOUTH [place] 100 mg 00 :00 TWICE [facility] tablet [facility] No TAKE 1 Univ ers tartrate 11-03 TABLET BY ity o f (LOPRESSOR) 00:00: 00:00 MOUTH [place] 100 mg 00 :00 TWICE [facility]- No TAKE 1 Univ ers TARTRATE 11-03 TABLET BY ity o f 100 mg 00:00: 00:00 MOUTH [place] tablet 00 :00 TWICE Medical DAILY Branch cetirizine 2021-11- No TAKE 1 Univ ers (ZyrTEC) 10 01-12 TABLET BY it y of mg tablet 00:00: 00:00 MOUTH ONCE [place] 00 :00 DAILY MD NEEDED FOR Anderso ALLERGIES [facility] cetirizine 2021-11- No TAKE 1 Univ ers (ZyrTEC) 10 01-12 TABLET BY it y of mg tablet 00:00: 00:00 MOUTH ONCE [place] 00 :00 DAILY MD NEEDED FOR [place] ALLER[facility] cetirizine 2021-11- No TAKE 1 Univ ers (ZyrTEC) 10 01-12 TABLET BY it y of mg tablet 00:00: 00:00 MOUTH ONCE [place] 00 :00 DAILY MD NEEDED FOR [place] ALLERGIES [facility] cetirizine 2021-11- No TAKE 1 Univ ers (ZyrTEC) 10 01-12 TABLET BY it y of mg tablet 00:00: 00:00 MOUTH ONCE [place] 00 :00 DAILY MD NEEDED FOR [place] ALLERGIES [facility] gabapentin 2021-11 Yes [id number] 600mg Take 1 Univers 600 mg 2-21 [...] Indication s: chronic pain Diclofenac 2021-11 Yes [id number] Apply to Univers Sodium 1 % 2-21 area(s) 3 ity of gel 00:00: (three) [place] 00 times Medical daily. Branch gabapentin 2021-11 Yes [id number] 600mg Take 1 Univers 600 mg 2-21 tablet by ity of tablet 00:00: mouth in [place] 00 the Medical morning Branch and 1 tablet at noon and 1 tablet in the evening. HYDROcodone 2021-11 Yes [id number] 1{tbl} Take 1 Un ally -acetaminop 2-21 tablet by ity of hen 7.5-325 00:00: mouth [place] mg per 00 every 6 Medical tablet (six) Branch hours as needed for Pain. Indication s: chronic pain Diclofenac 2021-11 Yes [id number] Apply to Univers Sodium 1 % 2-21 area(s) 3 ity of gel 00:00: (three) [place] 00 times Medical daily. Branch gabapentin 2021-11 Yes [id number] 600mg Take 1 Univers 600 mg 2-21 tablet by ity of tablet 00:00: mouth in [place] 00 the Medical morning Branch and 1 tablet at noon and 1 tablet in the evening. HYDROcodone 2021-11 Yes [id number] 1{tbl} Take 1 Un ally -acetaminop 2-21 tablet by ity of hen 7.5-325 00:00: mouth [place] mg per 00 every 6 Medical tablet (six) Branch hours as needed for Pain. Indication s: chronic pain Diclofenac 2021-11 Yes [id number] Apply to Univers Sodium 1 % 2-21 area(s) 3 ity of gel 00:00: (three) [place] 00 times Medical daily. Branch gabapentin 2021-11 Yes [id number] 600mg Take 1 Univers 600 mg 2-21 tablet by ity of tablet 00:00: mouth in [place] 00 the Medical morning Branch and 1 tablet at noon and 1 tablet in the evening. HYDROcodone 2021-11 Yes [id number] 1{tbl} Take 1 Un ally -acetaminop 2-21 tablet by ity of hen 7.5-325 00:00: mouth [place] mg per 00 every 6 Medical tablet (six) Branch hours as needed for Pain. Indication s: chronic pain Diclofenac 2021-11 Yes [id number] Apply to Univers Sodium 1 % 2-21 area(s) 3 ity of gel 00:00: (three) [place] 00 times Medical daily. Branch gabapentin 2021-11 Yes [id number] 600mg Take 1 [facility] 600 mg 2-21 [...] Indication s: chronic pain Diclofenac 2021-11 Yes [id number] Apply to Univers Sodium 1 % 2-21 area(s) 3 ity of gel 00:00: (three) [place] 00 times Medical daily. Branch gabapentin 2021-11 Yes [id number] 600mg Take 1 Univers 600 mg 2-21 tablet by ity of tablet 00:00: mouth in [place] the Medical morning Branch and 1 tablet at noon and 1 tablet in the evening. HYDROcodone 2021-11 Yes [id number] 1{tbl} Take 1 Un ally -acetaminop 2-21 tablet by ity of hen 7.5-325 00:00: mouth [place] mg per 00 every 6 Medical tablet (six) Branch hours as needed for Pain. Indication s: chronic pain Diclofenac 2021-11 Yes [id number] Apply to Univers Sodium 1 % 2-21 area(s) 3 ity of gel 00:00: (three) [place] 00 times Medical daily. Branch gabapentin 2021-11 Yes [id number] 600mg Take 1 Univers 600 mg 2-21 tablet by ity of tablet 00:00: mouth in [place] 00 the Medical morning Branch and 1 tablet at noon and 1 tablet in the evening. Diclofenac 2021- Yes [id number] Apply to Univers Sodium 1 % 2-21 area(s) 3 ity of gel 00:00: (three) [place] 00 times Medical daily. Branch gabapentin 2021- Yes [id number] 600mg Take 1 [facility] 600 mg 2-21 tablet by ity of tablet 00:00: mouth in [place] 00 the Medical morning Branch and 1 tablet at noon and 1 tablet in the evening. Diclofenac 2021- Yes [id number] Apply to [facility] Sodium 1 % 2-21 area(s) 3 ity of gel 00:00: (three) [place] 00 times Medical daily. Branch gabapentin 2021- Yes [id number] 600mg Take 1 [facility] 600 mg 2-21 tablet by ity of tablet 00:00: mouth in [place] 00 the Medical morning Branch and 1 tablet at noon and 1 tablet in the evening. Diclofenac 2021- Yes [id number] Apply to [facility] Sodium 1 % 2-21 area(s) 3 ity of gel 00:00: (three) [place] 00 times Medical daily. Branch gabapentin 2021- Yes [id number] 600mg Take 1 [facility] 600 mg 2-21 tablet by ity of tablet 00:00: mouth in [place] 00 the Medical morning Branch and 1 tablet at noon and 1 tablet in the evening. Diclofenac 2021- Yes [id number] Apply to [facility] Sodium 1 % 2-21 area(s) 3 ity of gel 00:00: (three) [place] 00 times Medical daily. Branch gabapentin 2021- Yes [id number] 600mg Take 1 [facility] 600 mg 2-21 tablet by ity of tablet 00:00: mouth in [place] 00 the Medical morning Branch and 1 tablet at noon and 1 tablet in the evening. Diclofenac 2021- Yes [id number] Apply to [facility] Sodium 1 % 2-21 area(s) 3 ity of gel 00:00: (three) [place] 00 times Medical daily. Branch gabapentin 2021- Yes [id number] 600mg Take 1 [facility] 600 mg 2-21 tablet by ity of tablet 00:00: mouth in [place] 00 the Medical morning Branch and 1 tablet at noon and 1 tablet in the evening. Diclofenac 2021-1 Yes [id number] Apply to [facility] Sodium 1 % 2-21 area(s) 3 ity of gel 00:00: (three) [place] 00 times Medical daily. Branch gabapentin 2021- Yes [id number] 600mg Take 1 [facility] 600 mg 2-21 tablet by ity of tablet 00:00: mouth in [place] 00 the Medical morning Branch and 1 tablet at noon and 1 tablet in the evening. Diclofenac 2021-11 Yes [id number] Apply to [facility] Sodium 1 % 2-21 area(s) 3 ity of gel 00:00: (three) [place] 00 times Medical daily. Branch gabapentin 2021-11 Yes [id number] 600mg Take 1 [facility] 600 mg 2-21 tablet by ity of tablet 00:00: mouth in [place] 00 the Medical morning Branch and 1 tablet at noon and 1 tablet in the evening. Diclofenac 2021-11 Yes [id number] Apply to [facility] Sodium 1 % 2-21 area(s) 3 ity of gel 00:00: (three) [place] 00 times Medical daily. Branch gabapentin 2021-11 Yes [id number] 600mg Take 1 [facility] 600 mg 2-21 tablet by ity of tablet 00:00: mouth in [place] [address] the Medical morning Branch and 1 tablet at noon and 1 tablet in the evening. Diclofenac 2021-11 Yes [id number] Apply to [facility] Sodium 1 % 2-21 area(s) 3 ity of gel 00:00: (three) [place] 00 times Medical daily. Branch gabapentin 2021-11 Yes [id number] 600mg Take 1 [facility] 600 mg 2-21 tablet by ity of tablet 00:00: mouth in [place] 00 the Medical morning Branch and 1 tablet at noon and 1 tablet in the evening. Diclofenac 2021-11 Yes [id number] Apply to [facility] Sodium 1 % 2-21 area(s) 3 ity of gel 00:00: (three) [place] 00 times Medical daily. Branch diclofenac 2021-11- [...] :00 THE MD MORNING [place] AND AT NOON AND Cancer IN THE Center EVENING [...] [place] 00 needed for [place] anxiety. [facility] ALPRAZolam 2021-11 Yes every 8 Univ ers (XANAX) 2 2-20 (eight) ity of mg tablet 00:00: hours [place] 00 needed for MD anxiety. [facility] ALPRAZolam 2021-11 Yes every 8 Univ ers (XANAX) 2 2-20 (eight) ity of mg tablet 00:00: hours [place] 00 needed for MD anxiety. [facility] ALPRAZolam 2021-11 Yes every 8 Univ ers (XANAX) 2 2-20 (eight) ity of mg tablet 00:00: hours [place] 00 needed for MD anxiety. [facility] albuterol 2021-11 Yes every 6 Unive rs (VENTOLIN 2-19 (six) ity of HFA,PROAIR 00:00: hours as [place] HFA) 90 00 needed. mcg[facility]uff [facility] Yes every 6 Unive rs (VENTOLIN 2-19 (six) ity of HFA,PROAIR 00:00: hours as [place] HFA) 90 00 needed. mcg/puff [place] inhaler n [facility] albuterol 2021-11 Yes every 6 Unive rs (VENTOLIN 2-19 (six) ity of HFA,PROAIR 00:00: hours as [place] HFA) 90 00 needed. mcg/puff [place] inhaler n [facility] albuterol 2021-11 Yes every 6 Unive rs (VENTOLIN 2-19 (six) ity of HFA,PROAIR 00:00: hours as [place] HFA) 90 00 needed. MD moss/longff [place] inhaler n [facility] No TAKE 1 Uni vers one 2-19 02-14 TABLET BY ity of (ALDACTONE) 00:00: 00:00 MOUTH [place] 25 mg 00 :00 EVERY DAY MD tablet [facility] spironookct 2021-11- No TAKE 1 Uni vers one 2-19 02-14 TABLET BY ity of (ALDACTONE) 00:00: 00:00 MOUTH [place] 25 mg 00 :00 EVERY DAY MD tablet [facility] spironolact 2021-11- No TAKE 1 Uni vers one 2-19 02-14 TABLET BY ity of (ALDACTONE) 00:00: 00:00 MOUTH [place] 25 mg 00 :00 EVERY DAY MD tablet [facility] spironolact 2021-11- No TAKE 1 Uni vers one 2-19 02-14 TABLET BY ity of (ALDACTONE) 00:00: 00:00 MOUTH [place] 25 mg 00 :00 EVERY DAY MD tablet [facility] zolpidem 2021-11 Yes TAKE 1 Univers (AMBIEN) 10 2-17 TABLET BY ity of mg tablet 00:00: M[place]TH [place] 00 BEDTIME MD NEEDED FOR [place] INSOMNIA Cancer [place] zolpidem 2021-11 Yes TAKE 1 Univers (AMBIEN) 10 2-17 TABLET BY ity of mg tablet 00:00: M[place]TH [place] 00 BEDTIME MD NEEDED FOR [place] INSOMNIA [facility] zolpidem 2021-11 Yes TAKE 1 Univers (AMBIEN) 10 2-17 TABLET BY ity of mg tablet 00:00: [place]TH [place] 00 BEDTIME [facility] zolpidem 2021-11 Yes TAKE 1 Univers (AMBIEN) 10 2-17 TABLET BY ity of mg tablet 00:00: M[place]TH [place] 00 BEDTIME MD NEEDED [facility] ondansetron 2021-11 Yes DISSOLVE 1 [...] tablet 00:00: MOUTH [place] 00 EVERY DAY [facility] pantoprazol 2021-11 Yes TAKE 1 Univ ers e 2-13 TABLET BY ity of (PROTONIX) 00:00: MOUTH [place] 40 mg EC 00 DAILY tablet [facility] amLODIPine 2021-11 Yes TAKE 1 Unive rs (NORVASC) 5 2-13 TABLET BY ity of mg tablet 00:00: MOUTH [place] 00 EVERY DAY [facility] pantoprazol 2021-11 Yes TAKE 1 Univ ers e 2-13 TABLET BY ity of (PROTONIX) 00:00: MOUTH [place] 40 mg EC 00 DAILY tablet [facility] amLODIPine 2021-11 Yes TAKE 1 Unive rs (NORVASC) 5 2-13 TABLET BY ity of mg tablet 00:00: MOUTH [place] 00 EVERY DAY [facility] pantoprazol 2021-11 Yes TAKE 1 Univ ers e 2-13 TABLET BY ity of (PROTONIX) 00:00: MOUTH [place] 40 mg EC 00 DAILY MD tablet [facility] amLODIPine 2021-11 Yes TAKE 1 Unive rs (NORVASC) 5 2-13 TABLET BY ity of mg tablet 00:00: MOUTH [place] 00 EVERY DAY MD [facility] pantoprazol 2021-11 Yes TAKE 1 Univ ers e 2-13 TABLET BY ity of (PROTONIX) 00:00: MOUTH [place] 40 mg EC 00 DAILY MD tablet [facility] dicyclomine 2021-11- No TAKE 1 Uni vers (BENTYL) 10 2-12 03-20 CAPSULE BY i ty of mg capsule 00:00: 00:00 MOUTH [place] 00 :00 EVERY 8 MD HOURS [facility] dicyclomine 2021-11- No TAKE 1 Uni vers (BENTYL) 10 2-12 03-20 CAPSULE BY i ty of mg capsule 00:00: 00:00 MOUTH [place] 00 :00 EVERY 8 MD HOURS [facility] dicyclomine 2021-11- No TAKE 1 Uni vers (BENTYL) 10 2-12 03-20 CAPSULE BY i ty of mg capsule 00:00: 00:00 MOUTH [place] 00 :00 EVERY 8 MD HOURS [facility] dicyclomine 2021-11- No TAKE 1 Uni vers (BENTYL) 10 2-12 03-20 CAPSULE BY i ty of mg capsule 00:00: 00:00 MOUTH [place] 00 :00 EVERY 8 MD HOURS [facility] BD DEVORAH 2021-11 Yes 10mg [...] 00:00: [place] gauge x 00 Medical 5/32" [facility] Devorah 2021-11- No USE Uni vers Gen Pen 12-06 DIRECTED. ity of Needle 32 00:00: 00:00 [place] gauge x 00 :00 MD Mg/[address] [place] [address] BD Devorah 2021-11- No USE Uni vers Gen Pen 12-06 DIRECTED. ity of Needle 32 00:00: 00:00 [place] gauge x 00 :00 MD Mg/[address] [place] [address] Devorah 2021-11- No USE Uni vers Gen Pen 12-06 DIRECTED. ity of Needle 32 00:00: 00:00 [place] gauge x 00 :00 5/[address] [place] [address] BD Devorah 2021-11- No USE Uni vers Gen Pen 12-06 DIRECTED. ity of Needle 32 00:00: 00:00 [place] gauge x 00 :00 MD Mg/[address] [place] [address] LISINOPRIL 2021-11 Yes [id number] TAKE 1/2 Univers 40 mg 2-02 TABLET BY ity of tablet 00:00: MOUTH [place] 00 TWICE Medical DAILY Branch LISINOPRIL 2021-11 Yes [id number] TAKE 1/2 Univers 40 mg 2-02 TABLET BY ity of tablet 00:00: MOUTH [place] 00 TWICE Medical DAILY Branch LISINOPRIL 2021-11 Yes [id number] TAKE 1/2 Univers 40 mg 2-02 TABLET BY ity of tablet 00:00: MOUTH [place] 00 TWICE Medical DAILY Branch LISINOPRIL 2021-11 Yes [id number] TAKE 1/2 Univers 40 mg 2-02 TABLET BY ity of tablet 00:00: MOUTH [place] 00 TWICE Medical DAILY Branch LISINOPRIL 2021-11 Yes [id number] TAKE 1/2 Univers 40 mg 2-02 TABLET BY ity of tablet 00:00: MOUTH [place] 00 TWICE Medical DAILY Branch LISINOPRIL 2021-11- No [id number] TAKE 1/2 Univers 40 mg 2-02 01-09 [...] :00 SKIN EVERY MD mL) pnij [facility] lisinopril 2021-11- No TAKE 1/2 Un ally (PRINIVIL,Z 12-02 TABLET BY it y of ESTRIL) 40 00:00: 00:00 MOUTH [place] mg tablet 00 :00 TWICE MD DAILY [facility] insulin 2021-11- No USE TWICE Univ ers syringe-nee 12-02 DAILY WITH i ty of dle U-100 1 00:00: 00:00 MEALS. [place] as mL 31 gauge 00 :00 MD x /16 syrg [facility] hydrALAZINE 2021-11- No TAKE 1 Uni vers [...] :00 SKIN EVERY MD mL) pnij DAY [facility] lisinopril 2021-11- No TAKE 1/2 Un ally (PRINIVIL,Z 12-02 TABLET BY it y of ESTRIL) 40 00:00: 00:00 MOUTH [place] mg tablet 00 :00 TWICE MD DAILY [facility] insulin 2021-11- No USE TWICE Univ ers syringe-nee 12-02 DAILY WITH i ty of dle U-100 1 00:00: 00:00 MEALS. [place] mL 31 gauge 00 :00 MD x 5/16 syrg [facility] hydrALAZINE 2021-11- No TAKE 1 Uni vers (APRESOLINE 12-02 TABLET BY it y of ) 100 mg 00:00: 00:00 MOUTH [place] tablet 00 :00 THREE MD TIMES Anderso DAILY n [facility] Victoza 2021-11- No ADMINISTER Uni [...] mg tablet 00 :00 TWICE MD DAILY [facility] insulin 2021-11- No USE TWICE Univ ers syringe-nee 12-02 DAILY WITH i ty of dle U-100 1 00:00: 00:00 MEALS. [place] mL 31 gauge 00 :00 MD x 03/16 stevieg [facility] hydrALAZINE 2021-11- No TAKE 1 Uni vers [...] mg tablet 00 :00 [facility] USE TWICE Univ ers syringe-nee 12-02 DAILY WITH i ty of dle U-100 1 00:00: 00:00 MEALS. [place] mL 31 gauge 00 :00 MD balke 03/16 [facility] allopurinol 2021-11- No 100mg Take 100 Univers [...] Indication s: chronic pain metFORMIN 2021-11 Yes [id number] 1000mg Take 1 Univers 1,000 mg 1-21 tablet by ity of tablet 00:00: mouth in [place] the Medical morning Branch and 1 tablet in the evening. Take with meals. HYDROcodone 2021-11 Yes [id number] 1{tbl} Take 1 Un ally -acetaminop 1-21 tablet by ity of hen 7.5-325 00:00: mouth [place] mg per 00 every 6 Medical tablet (six) Branch hours as needed for Pain. Indication s: chronic pain metFORMIN 2021-11 Yes [id number] 1000mg Take 1 Univers 1,000 mg 1-21 tablet by ity of tablet 00:00: mouth in [place] the Medical morning Branch and 1 tablet in the evening. Take with meals. HYDROcodone 2021-11 Yes [id number] 1{tbl} Take 1 Un ally -acetaminop 1-21 tablet by ity of hen 7.5-325 00:00: mouth [place] mg per 00 every 6 Medical tablet (six) Branch hours as needed for Pain. Indication s: chronic pain metFORMIN 2021-11 Yes [id number] 1000mg Take 1 Univers 1,000 mg 1-21 tablet by ity of tablet 00:00: mouth in [place] 00 the Medical morning Branch and 1 tablet in the evening. Take with meals. HYDROcodone 2021-11 Yes [id number] 1{tbl} Take 1 Un ally -acetaminop 1-21 tablet by ity of hen 7.5-325 00:00: mouth [place] mg per 00 every 6 Medical tablet (six) Branch hours as needed for Pain. Indication s: chronic pain metFORMIN 2021-11 Yes [id number] 1000mg Take 1 Univers 1,000 mg 1-21 tablet by ity of tablet 00:00: mouth in [place] [address] the [facility] morning [place] and 1 tablet in the evening. Take with meals. metFORMIN 2021-11 Yes [id number] 1000mg Take 1 Univers 1,000 mg 1-21 tablet by ity of tablet 00:00: mouth in [place] [address] the [facility] morning [place] and 1 tablet in the evening. Take with meals. neomycin-po 2021-11 Yes INSTILL 4 U nivers lymyxin-hyd 1-21 DROPS TO ity of rocortisone 00:00: [place]FFECTED [place] otic 00 EAR FOUR Medical solution TIMES Branch DAILY metFORMIN 2021-11 Yes [id number] 1000mg Take 1 Univers 1,000 mg 1-21 tablet by ity of tablet 00:00: mouth in [place] [address] the [facility] morning [place] and 1 tablet in the evening. Take with meals. neomycin-po 2021-11 Yes INSTILL 4 U nivers lymyxin-hyd 1-21 DROPS TO ity of rocortisone 00:00: AFFECTED [place] otic 00 EAR FOUR Medical solution TIMES Branch DAILY metFORMIN 2021-11 Yes [id number] 1000mg Take 1 Univers 1,000 mg 1-21 tablet by ity of tablet 00:00: mouth in [place] [address] the [facility] morning [place] and 1 tablet in the evening. Take with meals. neomycin-po 2021-11 Yes INSTILL 4 U nivers lymyxin-hyd 1-21 DROPS TO ity of rocortisone 00:00: AFFECTED [place] otic 00 EAR FOUR Medical solution TIMES Branch DAILY metFORMIN 2021-11 Yes [id number] 1000mg Take 1 Univers 1,000 mg 1-21 tablet by ity of tablet 00:00: mouth in [address] morning [place] and 1 tablet in the evening. Take with meals. neomycin-po 2021-11 Yes INSTILL 4 U nivers lymyxin-hyd 1-21 DROPS TO ity of rocortisone 00:00: [place]FFECTED [place] o[place] 00 EAR FOUR Medical solution TIMES Branch DAILY metFORMIN 2021-11 Yes [id number] 1000mg Take 1 Univers 1,000 mg 1-21 tablet by ity of tablet 00:00: mouth in [address] morning [place] and 1 tablet in the evening. Take with meals. neomycin-po 2021-11 Yes INSTILL 4 U nivers lymyxin-hyd 1-21 DROPS TO ity of rocortisone 00:00: [place]FFECTED [place] o[place] 00 EAR FOUR Medical solution TIMES Branch DAILY metFORMIN 2021-11 Yes [id number] 1000mg Take 1 Univers 1,000 mg 1-21 tablet by ity of tablet 00:00: mouth in [address] and 1 tablet in the evening. Take with meals. neomycin-po 2021-11 Yes INSTILL 4 U nivers lymyxin-hyd 1-21 DROPS TO ity of rocortisone 00:00: AFFECTED [place] o[place] 00 EAR FOUR Medical solution TIMES Branch DAILY metFORMIN 2021-11 Yes [id number] 1000mg Take 1 Univers 1,000 mg 1-21 tablet by ity of tablet 00:00: mouth in [address] and 1 tablet in the evening. Take with meals. neomycin-po 2021-11 Yes INSTILL 4 U nivers lymyxin-hyd 1-21 DROPS TO ity of rocortisone 00:00: AFFECTED [place] o[place] 00 EAR FOUR Medical solution TIMES Branch DAILY metFORMIN 2021-11 Yes [id number] 1000mg Take 1 Univers 1,000 mg 1-21 tablet by ity of tablet 00:00: mouth in [address] and 1 tablet in the evening. Take with meals. neomycin-po 2021-11 Yes INSTILL 4 U nivers lymyxin-hyd 1-21 DROPS TO ity of rocortisone 00:00: AFFECTED [place] o[place] 00 EAR FOUR Medical solution TIMES Branch DAILY metFORMIN 2021-11 Yes [id number] 1000mg Take 1 Univers 1,000 mg 1-21 tablet by ity of tablet 00:00: mouth in [address] morning [place] and 1 tablet in the evening. Take with meals. neomycin-po 2021-11 Yes INSTILL 4 U nivers lymyxin-hyd 1-21 DROPS TO ity of rocortisone 00:00: AFFECTED [place] o[place] 00 EAR FOUR Medical solution TIMES Branch DAILY metFORMIN 2021-11 Yes [id number] 1000mg Take 1 Univers 1,000 mg 1-21 tablet by ity of tablet 00:00: mouth in [address] morning [place] and 1 tablet in the evening. Take with meals. neomycin-po 2021-11 Yes INSTILL 4 U nivers lymyxin-hyd 1-21 DROPS TO ity of rocortisone 00:00: AFFECTED [place] o[place] 00 EAR FOUR Medical solution TIMES Branch DAILY metFORMIN 2021-11 Yes [id number] 1000mg Take 1 Univers 1,000 mg 1-21 tablet by ity of tablet 00:00: mouth in [address] and 1 tablet in the evening. Take with meals. neomycin-po 2021-11 Yes INSTILL 4 U nivers lymyxin-hyd 1-21 DROPS TO ity of rocortisone 00:00: AFFECTED [place] o[place] 00 EAR FOUR Medical solution TIMES Branch DAILY metFORMIN 2021-11 Yes [id number] 1000mg Take 1 Univers 1,000 mg 1-21 tablet by ity of tablet 00:00: mouth in [address] and 1 tablet in the evening. Take with meals. neomycin-po 2021-11 Yes INSTILL 4 U nivers lymyxin-hyd 1-21 DROPS TO ity of rocortisone 00:00: AFFECTED [place] o[place] 00 EAR FOUR Medical solution TIMES Branch DAILY metFORMIN 2021-11 Yes [id number] 1000mg Take 1 Univers 1,000 mg 1-21 tablet by ity of tablet 00:00: mouth in [address] morning [place] and 1 tablet in the evening. Take with meals. neomycin-po 2021-11 Yes INSTILL 4 U nivers lymyxin-hyd 1-21 DROPS TO ity of rocortisone 00:00: AFFECTED [place] o[place] 00 EAR FOUR Medical solution TIMES Branch DAILY metFORMIN 2021-11 Yes [id number] 1000mg Take 1 Univers 1,000 mg 1-21 tablet by ity of tablet 00:00: mouth in [place] 00 the Medical morning Branch and 1 tablet in the evening. Take with meals. neomycin-po 2021-11 Yes INSTILL 4 U nivers lymyxin-hyd 1-21 DROPS TO ity of rocortisone 00:00: AFFECTED [place] o[place] 00 EAR FOUR Medical solution TIMES Branch DAILY metFORMIN 2021-11 Yes [id number] 1000mg Take 1 Univers 1,000 mg 1-21 tablet by ity of tablet 00:00: mouth in [place] 00 the Medical morning Branch and 1 tablet in the evening. Take with meals. neomycin-po 2021-11 Yes INSTILL 4 U nivers lymyxin-hyd 1-21 DROPS TO ity of rocortisone 00:00: AFFECTED [place] 00 EAR FOUR Medical solution TIMES Branch DAILY metFORMIN 2021-11 Yes [id number] 1000mg Take 1 Univers 1,000 mg 1-21 tablet by ity of tablet 00:00: mouth in [place] 00 the Medical morning Branch and 1 [...] tablet 00 :00 DAILY MD Liane olivier [facility] colchicine 2021-11- No TAKE 1 Univ ers (COLCRYS) 11-21-20 TABLET BY ity of 0.6 mg 00:00: 00:00 MOUTH [place] tablet 00 :00 DAILY MD Liane olivier [facility] colchicine 2021-11- No TAKE 1 Univ ers (COLCRYS) 11-21-20 TABLET BY ity of 0.6 mg 00:00: 00:00 MOUTH [place] tablet 00 :00 DAILY MD Liane olivier [facility] colchicine 2021-11- No TAKE 1 Univ ers (COLCRYS) 11-21-20 TABLET BY ity of 0.6 mg 00:00: 00:00 MOUTH [place] tablet 00 :00 DAILY MD Liane olivier [facility] metFORMIN 2021-11- No TAKE 1 Unive rs (GLUCOPHAGE 11-21 TABLET BY it y of ) 1000 mg 00:00: 00:00 MOUTH IN [place] tablet 00 :00 THE MD MORNING [place] AND IN THE n EVENING Cancer WITH MEALS Center metFORMIN 2021-11- No TAKE 1 Unive rs (GLUCOPHAGE 11-21 TABLET BY it y of ) 1000 mg 00:00: 00:00 MOUTH IN [place] tablet 00 :00 THE MD MORNING [place] AND IN THE n EVENING Cancer WITH MEALS Center metFORMIN 2021-11- No TAKE 1 Unive rs (GLUCOPHAGE 11-21 TABLET BY it y of ) 1000 mg 00:00: 00:00 MOUTH IN [place] tablet 00 :00 THE MD MORNING [place] AND IN THE n EVENING Cancer WITH MEALS Center metFORMIN 2021-11- No TAKE 1 Unive rs (GLUCOPHAGE 11-21 TABLET BY it y of ) 1000 mg 00:00: 00:00 MOUTH IN [place] tablet 00 :00 THE MORNING [place] AND IN THE n EVENING Cancer WITH [...] needed for Pain. Indication s: chronic pain [facility] 2021-11 Yes INHALE 1 Univer s Ellipt[place] 1-18 PUFF BY ity of 100-62.5-25 00:00: MOUTH [place] mcg dsdv 00 EVERY DAY MD [facility] 2021-11 Yes INHALE 1 Univer s Ellipta 1-18 PUFF BY ity of 100-62.5-25 00:00: MOUTH [place] mcg dsdv 00 EVERY DAY MD Liane olivier [facility] 2021-11 Yes INHALE 1 Univer s Ellipta 1-18 PUFF BY ity of 100-62.5-25 00:00: MOUTH [place] mcg dsdv 00 EVERY DAY MD Liane olivier [facility] Trelegy 2021-11 Yes INHALE 1 Univer s Ellipta 1-18 PUFF BY ity of 100-62.5-25 00:00: MOUTH [place] mcg dsdv 00 EVERY DAY MD Liane olivier [facility] nitroglycer 2021-11- No PLACE 1 Un ally in 11-18-14 TABLET ity of (NITROSTAT) 00:00: 00:00 UNDER THE [place] 0.4 mg SL 00 :00 TONGUE MD tablet EVERY 5 [place] MINUTES n FOR CHEST Cancer PAIN. [place] nitroglycer 2021-11- No PLACE 1 Un ally in 11-18-14 TABLET ity of (NITROSTAT) 00:00: 00:00 UNDER THE [place] 0.4 mg SL 00 :00 TONGUE MD tablet EVERY 5 [place] MINUTES n FOR CHEST Cancer PAIN. [place] nitroglycer 2021-11- No PLACE 1 Un ally in 11-18 TABLET ity of (NITROSTAT) 00:00: 00:00 UNDER THE [place] 0.4 mg SL 00 :00 TONGUE MD tablet EVERY 5 [place] MINUTES n FOR CHEST Cancer PAIN. [place] nitroglycer 2021-11- No PLACE 1 Un ally in 11-1814 TABLET ity of (NITROSTAT) 00:00: 00:00 UNDER THE [place] 0.4 mg SL 00 :00 TONGUE MD tablet EVERY 5 [place] MINUTES n FOR CHEST Cancer PAIN. [place] GABAPENTIN 2021-11 Yes [id number] TAKE 1 Univers 600 mg 1-17 TABLET BY ity of tablet 00:00: MOUTH [place] THREE Medical TIMES Branch DAILY GABAPENTIN 2021-11 Yes [id number] TAKE 1 Univers 600 mg 1-17 TABLET BY ity of tablet 00:00: MOUTH [place] THREE Medical TIMES Branch DAILY GABAPENTIN 2021-11 Yes [id number] TAKE 1 Univers 600 mg 1-17 TABLET BY ity of tablet 00:00: MOUTH [place] THREE Medical TIMES Branch DAILY GABAPENTIN 2021-11 Yes [id number] TAKE 1 Univers 600 mg 1-17 TABLET BY ity of tablet 00:00: MOUTH [place] THREE Medical TIMES Branch DAILY GABAPENTIN 2021-11 Yes [id number] TAKE 1 Univers 600 mg 1-17 TABLET BY ity of tablet 00:00: MOUTH [place] [address] THREE Medical TIMES Branch DAILY GABAPENTIN 2021-11 Yes [id number] TAKE 1 Univers 600 mg 1-17 TABLET BY ity of tablet 00:00: MOUTH [place] [address] THREE Medical TIMES Branch DAILY GABAPENTIN 2021-11- No [id number] TAKE 1 Univers 600 mg 1-17 12-21 TABLET BY ity of tablet 00:00: 00:00 MOUTH [place] 00 :00 THREE Medical TIMES Branch DAILY GABAPENTIN 2021-11- No [id number] TAKE 1 Univers 600 mg 1-17 12-21 TABLET BY ity of tablet 00:00: 00:00 MOUTH [place] 00 :00 THREE Medical TIMES Branch DAILY ALPRAZolam 2021-11 Yes 2mg Take 2 mg Un ally 2 mg tablet 1-12 by mouth 3 it y of 00:00: (three) [place] [address] times Medical daily as Branch needed. atorvastati 2021-11 Yes 20mg Take 20 mg Univers n 20 mg 1-12 by mouth ity of tablet 00:00: in the [place] 00 morning. Medical Branch ALPRAZolam 2021-11 Yes 2mg Take 2 mg Un ally 2 mg tablet 1-12 by mouth 3 it y of 00:00: (three) [place] [address] times Medical daily as Branch needed. atorvastati 2021-11 Yes 20mg Take 20 mg Univers n 20 mg 1-12 by mouth ity of tablet 00:00: in the [place] 00 morning. Medical Branch ALPRAZolam 2021-11 Yes 2mg Take 2 mg Un ally 2 mg tablet 1-12 by mouth 3 it y of 00:00: (three) [place] [address] times Medical daily as Branch needed. atorvastati 2021-11 Yes 20mg Take 20 mg Univers n 20 mg 1-12 by mouth ity of tablet 00:00: in the [place] 00 morning. Medical Branch ALPRAZolam 2021-11 Yes 2mg Take 2 mg Un ally 2 mg tablet 1-12 by mouth 3 it y of 00:00: (three) [place] 00 times Medical daily as Branch needed. atorvastati 2021-11 Yes 20mg Take 20 mg Univers n 20 mg 1-12 by mouth ity of tablet 00:00: in the [place] 00 morning. Medical Branch ALPRAZolam 2021-11 Yes 2mg Take 2 mg Un ally 2 mg tablet 1-12 by mouth 3 it y of 00:00: (three) [place] 00 times Medical daily as Branch needed. atorvastati 2021- Yes 20mg Take 20 mg Univers n 20 mg 1-12 by mouth ity of tablet 00:00: in the [place] 00 morning. Medical Branch ALPRAZolam 2021-11 Yes 2mg Take 2 mg Un ally 2 mg tablet 1-12 by mouth 3 it y of 00:00: (three) [place] 00 times Medical daily as Branch needed. atorvastati 2021- Yes 20mg Take 20 mg Univers n 20 mg 1-12 by mouth ity of tablet 00:00: in the [place] 00 morning. Medical Branch ALPRAZolam 2021-11 Yes 2mg Take 2 mg [facility] 2 mg tablet 1-12 by mouth 3 it y of 00:00: (three) [place] 00 times Medical daily as Branch needed. atorvastati 2021-11 Yes 20mg Take 20 mg [facility] n 20 mg 1-12 by mouth ity of tablet 00:00: in the [place] 00 morning. Medical Branch ALPRAZolam 2021-11 Yes 2mg Take 2 mg [facility] 2 mg tablet 1-12 by mouth 3 it y of 00:00: (three) [place] 00 times Medical daily as Branch needed. atorvastati 2021-11 Yes 20mg Take 20 mg [facility] n 20 mg 1-12 by mouth ity of tablet 00:00: in the [place] 00 morning. Medical Branch ALPRAZolam 2021-11 Yes 2mg Take 2 mg [facility] 2 mg tablet 1-12 by mouth 3 it y of 00:00: (three) [place] 00 times Medical daily as Branch needed. atorvastati 2021- Yes 20mg Take 20 mg [facility] n 20 mg 1-12 by mouth ity of tablet 00:00: in the [place] 00 morning. Medical Branch ALPRAZolam 2021-11 Yes 2mg Take 2 mg [facility] 2 mg tablet 1-12 by mouth 3 it y of 00:00: (three) [place] 00 times Medical daily as Branch needed. atorvastati 2021- Yes 20mg Take 20 mg [facility] n 20 mg 1-12 by mouth ity of tablet 00:00: in the [place] 00 morning. Medical Branch ALPRAZolam 2021-11 Yes 2mg Take 2 mg [facility] 2 mg tablet 1-12 by mouth 3 it y of 00:00: (three) [place] 00 times Medical daily as Branch needed. atorvastati 2021- Yes 20mg Take 20 mg [facility] n 20 mg 1-12 by mouth ity of tablet 00:00: in the [place] 00 morning. Medical Branch ALPRAZolam 2021-11 Yes 2mg Take 2 mg [facility] 2 mg tablet 1-12 by mouth 3 it y of 00:00: (three) [place] 00 times Medical daily as Branch needed. atorvastati 2021- Yes 20mg Take 20 mg [facility] n 20 mg 1-12 by mouth ity of tablet 00:00: in the [place] 00 morning. Medical Branch ALPRAZolam 2021-11 Yes 2mg Take 2 mg [facility] 2 mg tablet 1-12 by mouth 3 it y of 00:00: (three) [place] 00 times Medical daily as Branch needed. atorvastati 2021- Yes 20mg Take 20 mg [facility] n 20 mg 1-12 by mouth ity of tablet 00:00: in the [place] 00 morning. Medical Branch ALPRAZolam 2021-11 Yes 2mg Take 2 mg [facility] 2 mg tablet 1-12 by mouth 3 it y of 00:00: (three) [place] 00 times Medical daily as Branch needed. atorvastati 2021- Yes 20mg Take 20 mg [facility] n 20 mg 1-12 by mouth ity of tablet 00:00: in the [place] 00 morning. Medical Branch ALPRAZolam 2021- Yes 2mg Take 2 mg [facility] 2 mg tablet 1-12 by mouth 3 it y of 00:00: (three) [place] 00 times Medical daily as Branch needed. atorvastati 2021- Yes 20mg Take 20 mg [facility] n 20 mg 1-12 by mouth ity of tablet 00:00: in the [place] 00 morning. Medical Branch ALPRAZolam 2021- Yes 2mg Take 2 mg [facility] 2 mg tablet 1-12 by mouth 3 it y of 00:00: (three) [place] 00 times Medical daily as Branch needed. atorvastati 2021- Yes 20mg Take 20 mg [facility] n 20 mg 1-12 by mouth ity of tablet 00:00: in the [place] 00 morning. Medical Branch ALPRAZolam 2021-11 Yes 2mg Take 2 mg [facility] 2 mg tablet 1-12 by mouth 3 it y of 00:00: (three) [place] 00 times Medical daily as Branch needed. atorvastati 2021-11 Yes 20mg Take 20 mg [facility] n 20 mg 1-12 by mouth ity of tablet 00:00: in the [place] 00 morning. Medical Branch ALPRAZolam 2021-11 Yes 2mg Take 1 Un[facility] rs 2 mg tablet 1-12 tablet by ity of 00:00: mouth 3 [place] 00 (three) Medical times Branch daily as needed. atorvastati 2021-11 Yes 20mg Take 1 Univ ers n 20 mg 1-12 tablet by ity of tablet 00:00: mouth in [place] 00 the Medical morning. Branch ALPRAZolam 2021-11 Yes 2mg Take 1 Un[facility] rs 2 mg tablet 1-12 tablet by ity of 00:00: mouth 3 [place] 00 (three) Medical times Branch daily as needed. atorvastati 2021-11 Yes 20mg Take 1 Univ ers n 20 mg 1-12 tablet by ity of tablet 00:00: mouth in [place] 00 the Medical morning. Branch ALPRAZolam 2021-11 Yes 2mg Take 1 Un[facility] rs 2 mg tablet 1-12 tablet by ity of 00:00: mouth 3 [place] 00 (three) Medical times Branch daily as needed. atorvastati 2021-11 Yes 20mg Take 1 [facility] ers n 20 mg 1-12 tablet by ity of tablet 00:00: mouth in [place] 00 the Medical morning. Branch atorvastati 2021-11 [...] [place] tablet 00 EVERY DAY MD [facility] hydrocortis 2021-11 Yes APPLY Unive rs one 1 % 1-10 TWICE ity of cream 00:00: DAILY IN [place] 00 AND AROUND Medical THE RECTUM Branch AFTER S[facility]Z BATH hydrocortis 2021-11 Yes APPLY Unive rs one 1 % 1-10 TWICE ity of cream 00:00: DAILY IN [place] 00 AND AROUND Medical THE RECTUM Branch AFTER S[facility] [place] hydrocortis 2021-11 Yes APPLY Unive rs one 1 % 1-10 TWICE ity of cream 00:00: DAILY IN [place] 00 AND AROUND Medical THE RECTUM Branch AFTER S[facility]Z [place] hydrocortis 2021-11 Yes APPLY Unive rs one 1 % 1-10 TWICE ity of cream 00:00: DAILY IN [place] 00 AND AROUND Medical THE RECTUM Branch AFTER S[facility] [place] hydrocortis 2021-11 Yes APPLY Unive rs one 1 % 1-10 TWICE ity of cream 00:00: DAILY IN [place] 00 AND AROUND Medical THE RECTUM Branch AFTER S[facility]Z [place] hydrocortis 2021-11 Yes APPLY Unive rs one 1 % 1-10 TWICE ity of cream 00:00: DAILY IN [place] 00 AND AROUND Medical THE RECTUM Branch AFTER S[facility]Z [place] hydrocortis 2021-11 Yes APPLY Unive rs one 1 % 1-10 TWICE ity of cream 00:00: DAILY IN [place] 00 AND AROUND Medical THE RECTUM Branch AFTER [facility] [place] hydrocortis 2021-11 Yes APPLY Unive rs one 1 % 1-10 TWICE ity of cream 00:00: DAILY IN [place] 00 AND AROUND Medical THE RECTUM Branch AFTER S[facility] [place] hydrocortis 2021-11 Yes APPLY Unive rs one 1 % 1-10 TWICE ity of cream 00:00: DAILY IN [place] 00 AND AROUND Medical THE RECTUM Branch AFTER [facility] [place] hydrocortis 2021-11 Yes APPLY Unive rs one 1 % 1-10 TWICE ity of cream 00:00: DAILY IN [place] 00 AND AROUND Medical THE RECTUM Branch AFTER [facility] [place] hydrocortis 2021-11 Yes APPLY Unive rs one 1 % 1-10 TWICE ity of cream 00:00: DAILY IN [place] 00 AND AROUND Medical THE RECTUM Branch AFTER S[facility] [place] hydrocortis 2021-11 Yes APPLY Unive rs one 1 % 1-10 TWICE ity of cream 00:00: DAILY IN [place] 00 AND AROUND Medical THE RECTUM Branch AFTER [facility] [place] hydrocortis 2021-11 Yes APPLY Unive rs one 1 % 1-10 TWICE ity of cream 00:00: DAILY IN [place] 00 AND AROUND Medical THE RECTUM Branch AFTER S[place] hydrocortis 2021-11 Yes APPLY Unive rs one 1 % 1-10 TWICE ity of cream 00:00: DAILY IN [place] 00 AND AROUND Medical THE RECTUM Branch AFTER [facility] hydrocortis 2021-11 Yes APPLY Unive rs one 1 % 1-10 TWICE ity of cream 00:00: DAILY IN [place] 00 AND AROUND Medical THE RECTUM Branch AFTER [facility] [place] hydrocortis 2021-11 Yes APPLY Unive rs one 1 % 1-10 TWICE ity of cream 00:00: DAILY IN [place] 00 AND AROUND Medical THE RECTUM Branch AFTER [facility] [place] hydrocortis 2021-11 Yes APPLY Unive rs one 1 % 1-10 TWICE ity of cream 00:00: DAILY IN [place] 00 AND AROUND Medical THE RECTUM Branch AFTER [facility] [place] hydrocortis 2021-11 Yes APPLY Unive rs one 1 % 1-10 TWICE ity of cream 00:00: DAILY IN [place] 00 AND AROUND Medical THE RECTUM Branch AFTER S[facility] hydrocortis 2021-11 Yes APPLY Unive rs one 1 % 1-10 TWICE ity of cream 00:00: DAILY IN [place] 00 AND AROUND Medical THE RECTUM Branch AFTER [facility] [place] hydrocortis 2021-11 Yes APPLY Unive rs one 1 % 1-10 TWICE ity of cream 00:00: DAILY IN [place] 00 AND AROUND Medical THE RECTUM Branch AFTER S[facility]Z [place] hydrocortis 2021-11- No APPLY Univ ers one 1 % 1-10 -14 TWICE ity of crpe 00:00: 00:00 DAILY IN [place] 00 :00 AND AROUND MD THE RECTUM [facility] hydrocortis 2021-11- No APPLY Univ ers one 1 % 1-10 -14 TWICE ity of crpe 00:00: 00:00 DAILY IN [place] 00 :00 AND AROUND MD THE RECTUM [facility] hydrocortis 2021-11- No APPLY Univ ers one 1 % 1-10 -14 TWICE ity of crpe 00:00: 00:00 DAILY IN [place] 00 :00 AND AROUND MD THE RECTUM [facility] hydrocortis 2021-113- No APPLY Univ ers one 1 % 1-10 14 TWICE ity of crpe 00:00: 00:00 DAILY IN [place] 00 :00 AND AROUND MD THE RECTUM Anders[facility] AFTER [facility] benzonatate 2021-11 Yes TAKE 1 Univ [...] ity of tablet 00:00: mouth in [place] 00 the Medical morning Branch and 0.1 mg at noon and 0.1 mg in the evening. benzonatate 2021-11 Yes TAKE 1 Univ ers 100 mg 1-05 CAPSULE BY ity of capsule 00:00: MOUTH [place] 00 THREE Medical TIMES Branch DAILY NEEDED [...] ity of tablet 00:00: mouth in [place] 00 the Medical morning Branch and 0.1 [...] ity of tablet 00:00: mouth in [place] 00 the Medical morning Branch and 0.1 mg at noon and 0.1 mg in the evening. benzonatate 2021-11 Yes TAKE 1 Univ ers 100 mg 1-05 CAPSULE BY ity of capsule 00:00: MOUTH [place] THREE Medical TIMES Branch DAILY NEEDED FOR [...] ity of tablet 00:00: mouth in [place] the Medical morning Branch and 0.1 mg at noon and 0.1 mg in the evening. benzonatate 2021-11 Yes TAKE 1 Univ ers 100 mg 1-05 CAPSULE BY ity of capsule 00:00: MOUTH [place] THREE Medical TIMES Branch DAILY NEEDED FOR [...] BY ity of capsule 00:00: MOUTH [place] THREE Medical TIMES Branch DAILY NEEDED FOR [...] ity of tablet 00:00: mouth in [place] the Medical morning Branch and 0.1 mg at noon and 0.1 mg in the evening. benzonatate 2021-11 Yes TAKE 1 Univ ers 100 mg 1-05 CAPSULE BY ity of capsule 00:00: MOUTH [place] THREE Medical TIMES [place] DAILY NEEDED FOR COUGH codeine-gua 2021-11 Yes [...] ity of tablet 00:00: mouth in [place] 00 the Medical morning Branch and 0.1 [...] ity of tablet 00:00: mouth in [place] 00 the Medical morning Branch and 0.1 mg at noon and 0.1 mg in the evening. benzonatate 2021-11 Yes TAKE 1 Univ ers 100 mg 1-05 CAPSULE BY ity of capsule 00:00: MOUTH [place] 00 THREE Medical TIMES Branch DAILY NEEDED [...] CAPSULE BY ity of capsule 00:00: MOUTH Medical TIMES Branch DAILY NEEDED FOR COUGH [...] ity of tablet 00:00: mouth in [place] the Medical morning Branch and 0.1 mg at noon and 0.1 mg in the evening. benzonatate 2021-11 Yes TAKE 1 Univ ers 100 mg 1-05 CAPSULE BY ity of capsule 00:00: MOUTH [place] THREE Medical TIMES Branch DAILY NEEDED FOR [...] ity of tablet 00:00: mouth in [place] the Medical morning Branch and 0.1 mg at noon and 0.1 mg in the evening. benzonatate 2021-11 Yes TAKE 1 Univ ers 100 mg 1-05 CAPSULE BY ity of capsule 00:00: MOUTH [place] [address] THREE Medical TIMES Branch DAILY NEEDED FOR [...] ity of tablet 00:00: mouth in [place] 00 the Medical morning Branch and 0.1 mg at noon and 0.1 mg in the evening. benzonatate 2021-11 Yes TAKE 1 Univ ers 100 mg 1-05 CAPSULE BY ity of capsule 00:00: MOUTH [place] 00 THREE Medical TIMES Branch DAILY NEEDED [...] ity of tablet 00:00: mouth in [place] 00 the Medical morning Branch and 0.1 mg at noon and 0.1 mg in the evening. benzonatate 2021-11 Yes TAKE 1 Univ ers 100 mg 1-05 CAPSULE BY ity of capsule 00:00: MOUTH [place] 00 THREE Medical TIMES Branch DAILY NEEDED [...] ity of tablet 00:00: mouth in [place] 00 the Medical morning Branch and 0.1 mg at noon and 0.1 mg in the evening. benzonatate 2021-11 Yes TAKE 1 Univ ers 100 mg 1-05 CAPSULE BY ity of capsule 00:00: MOUTH [place] [address] THREE Medical TIMES [place] DAILY NEEDED FOR COUGH codeine-gua 2021-11 Yes [...] ity of tablet 00:00: mouth in [place] 00 the Medical morning Branch and 1 tablet at noon and 1 tablet in the evening. benzonatate 2021-11 Yes TAKE 1 Univ ers 100 mg 1-05 CAPSULE BY ity of capsule 00:00: MOUTH [place] [address] THREE Medical TIMES Branch DAILY NEEDED FOR [...] ity of tablet 00:00: mouth in [place] 00 the Medical morning Branch and 1 tablet at noon and 1 tablet in the evening. benzonatate 2021-11 Yes TAKE 1 Univ ers 100 mg 1-05 CAPSULE BY ity of capsule 00:00: MOUTH [place] 00 THREE Medical TIMES Branch DAILY NEEDED [...] 00:00: mouth in [place] hr tablet the Medical morning Branch and 1 tablet in the evening. oseltamivir 2021-11 Yes TAKE ONE Un ally 75 mg 1-05 (1) ity of capsule 00:00: CAPSULE(S) [place] 00 BY MOUTH Medical TWICE A Branch DAY. cloNIDine 2021-11 Yes .1mg Take 1 Univer s 0.1 mg 1-05 tablet by ity of tablet 00:00: mouth in [place] the Medical morning Branch and 1 tablet at noon and 1 tablet in the evening. LISINOPRIL 2021-11 Yes [id number] TAKE 1/2 Univers 40 mg 1-04 TABLET BY ity of tablet 00:00: MOUTH [place] 00 TWICE Medical DAILY Branch LISINOPRIL 2021-11 Yes [id number] TAKE 1/2 Univers 40 mg 1-04 TABLET BY ity of tablet 00:00: MOUTH [place] TWICE Medical DAILY Branch LISINOPRIL 2021-11 Yes [id number] TAKE 1/2 Univers 40 mg 1-04 TABLET BY ity of tablet 00:00: MOUTH [place] 00 TWICE Medical DAILY Branch LISINOPRIL 2021-11 Yes [id number] TAKE 1/2 Univers 40 mg 1-04 TABLET BY ity of tablet 00:00: MOUTH [place] 00 TWICE Medical DAILY Branch LISINOPRIL 2021-11 Yes [id number] TAKE 1/2 Univers 40 mg 1-04 TABLET BY ity of tablet 00:00: MOUTH [place] 00 TWICE Medical DAILY Branch LISINOPRIL 2021-11 Yes [id number] TAKE 1/2 Univers 40 mg 1-04 TABLET BY ity of tablet 00:00: MOUTH [place] 00 TWICE Medical DAILY Branch LISINOPRIL 2021-11 Yes [id number] TAKE 1/2 Univers 40 mg 1-04 TABLET BY ity of tablet 00:00: MOUTH [place] 00 TWICE Medical DAILY Branch LISINOPRIL 2021-11 No [id number] TAKE 1/2 Univers 40 mg 1-04 12- TABLET BY ity of tablet 00:00: 00:00 MOUTH [place] 00 :00 TWICE Medical DAILY Branch hydrALAZINE 2021-11 Yes [id number] TAKE 1 Univers 100 mg 1-03 TABLET BY ity of tablet 00:00: MOUTH [place] 00 THREE Medical TIMES Branch DAILY lisinopriL 2021-11 Yes [id number] TAKE 1/2 Univers 40 mg 1-03 TABLET BY ity of tablet 00:00: MOUTH [place] 00 TWICE Medical DAILY Branch metoprolol 2021-11 Yes TAKE 1 Unive rs tartrate 1-03 TABLET BY ity of 100 mg 00:00: MOUTH [place] tablet 00 TWICE Medical DAILY Branch hydrALAZINE 2021-11 Yes [id number] TAKE 1 Univers 100 mg 1-03 TABLET BY ity of tablet 00:00: MOUTH [place] 00 THREE Medical TIMES Branch DAILY metoprolol 2021-11 Yes TAKE 1 Unive rs tartrate 1-03 TABLET BY ity of 100 mg 00:00: MOUTH [place] tablet 00 TWICE Medical DAILY Branch hydrALAZINE 2021-11 Yes [id number] TAKE 1 [facility] 100 mg 1-03 TABLET BY ity of tablet 00:00: MOUTH [place] 00 THREE Medical TIMES Branch DAILY metoprolol 2021-11 Yes TAKE 1 Unive rs tartrate 1-03 TABLET BY ity of 100 mg 00:00: MOUTH [place] tablet 00 TWICE Medical DAILY Branch hydrALAZINE 2021-11 Yes [id number] TAKE 1 Univers 100 mg 1-03 TABLET BY ity of tablet 00:00: MOUTH [place] 00 THREE Medical TIMES Branch DAILY metoprolol 2021-11 Yes TAKE 1 Unive rs tartrate 1-03 TABLET BY ity of 100 mg 00:00: MOUTH [place] tablet 00 TWICE Medical DAILY Branch hydrALAZINE 2021-11 Yes [id number] TAKE 1 [facility] 100 mg 1-03 TABLET BY ity of tablet 00:00: MOUTH [place] 00 THREE Medical TIMES Branch DAILY metoprolol 2021-11 Yes TAKE 1 Unive rs tartrate 1-03 TABLET BY ity of 100 mg 00:00: MOUTH [place] tablet 00 TWICE Medical DAILY Branch hydrALAZINE 2021-11 Yes [id number] TAKE 1 Univers 100 mg 1-03 TABLET BY ity of tablet 00:00: MOUTH [place] 00 THREE Medical TIMES Branch DAILY metoprolol 2021-11 Yes TAKE 1 Unive rs tartrate 1-03 TABLET BY ity of 100 mg 00:00: MOUTH [place] tablet 00 TWICE Medical DAILY Branch hydrALAZINE 2021-11 Yes [id number] TAKE 1 Univers 100 mg 1-03 TABLET BY ity of tablet 00:00: MOUTH [place] 00 THREE Medical TIMES Branch DAILY metoprolol 2021-11 Yes TAKE 1 Unive rs tartrate 1-03 TABLET BY ity of 100 mg 00:00: MOUTH [place] tablet 00 TWICE Medical DAILY Branch hydrALAZINE 2021-11 Yes [id number] TAKE 1 Univers 100 mg 1-03 TABLET BY ity of tablet 00:00: MOUTH [place] 00 THREE Medical TIMES Branch DAILY metoprolol 2021-11 Yes TAKE 1 Unive rs tartrate 1-03 TABLET BY ity of 100 mg 00:00: MOUTH [place] tablet 00 TWICE Medical DAILY Branch hydrALAZINE 2021-11 Yes [id number] TAKE 1 Univers 100 mg 1-03 TABLET BY ity of tablet 00:00: MOUTH [place] 00 THREE Medical TIMES Branch DAILY metoprolol 2021-11 Yes TAKE 1 Unive rs tartrate 1-03 TABLET BY ity of 100 mg 00:00: MOUTH [place] tablet 00 TWICE Medical DAILY Branch hydrALAZINE 2021-11 Yes [id number] TAKE 1 Univers 100 mg 1-03 TABLET BY ity of tablet 00:00: MOUTH [place] 00 THREE Medical TIMES Branch DAILY metoprolol 2021-11 Yes TAKE 1 Unive rs tartrate 1-03 TABLET BY ity of 100 mg 00:00: MOUTH [place] tablet 00 TWICE Medical DAILY Branch hydrALAZINE 2021-11 Yes [id number] TAKE 1 Univers 100 mg -03 TABLET BY ity of tablet 00:00: MOUTH [place] 00 THREE Medical TIMES Branch DAILY metoprolol 2021-11 Yes TAKE 1 Unive rs tartrate -03 TABLET BY ity of 100 mg 00:00: MOUTH [place] tablet 00 TWICE Medical DAILY Branch hydrALAZINE 2021-11 Yes [id number] TAKE 1 Univers 100 mg -03 TABLET BY ity of tablet 00:00: MOUTH [place] 00 THREE Medical TIMES Branch DAILY hydrALAZINE 2021-11 Yes [id number] TAKE 1 Univers 100 mg -03 TABLET BY ity of tablet 00:00: MOUTH [place] 00 THREE Medical TIMES Branch DAILY hydrALAZINE 2021-11- No [id number] TAKE 1 Univers 100 mg -12 30- TABLET BY ity of tablet 00:00: 00:00 MOUTH [place] 00 :00 THREE Medical TIMES Branch DAILY metoprolol 2021-11- No TAKE 1 Univ ers tartrate 11-03 TABLET BY ity o f 100 mg 00:00: 00:00 MOUTH [place] tablet 00 :00 TWICE Medical DAILY Branch lisinopriL 2021-11- No [id number] TAKE 1/2 Univers 40 mg 11-03 TABLET BY ity of tablet 00:00: 00:00 MOUTH [place] 00 :00 TWICE Medical DAILY Branch allopurinoL 2021-11 Yes 300mg Take 300 U nivers 300 mg 1-01 mg by ity of tablet 00:00: mouth in [place] 00 the Medical morning Branch and 300 mg in the evening. allopurinoL 2021-11 Yes 300mg Take 300 U nivers 300 mg 1-01 mg by ity of tablet 00:00: mouth in [place] 00 the Medical morning Branch and 300 mg in the evening. allopurinoL 2021-11 Yes 300mg Take 300 U nivers 300 mg 1-01 mg by ity of tablet 00:00: mouth in [place] 00 the Medical morning Branch and 300 mg in the evening. allopurinoL 2021-11 Yes 300mg Take 300 U nivers 300 mg 1-01 mg by ity of tablet 00:00: mouth in [place] 00 the Medical morning Branch and 300 mg in the evening. allopurinoL 2021-11 Yes 300mg Take 300 U nivers 300 mg 1-01 mg by ity of tablet 00:00: mouth in [place] 00 the Medical morning Branch and 300 mg in the evening. allopurinoL 2022-1 Yes 300mg Take 300 U nivers 300 mg 1-01 mg by ity of tablet 00:00: mouth in [place] 00 the Medical morning Branch and 300 mg in the evening. allopurinoL 2022-1 Yes 300mg Take 300 U nivers 300 mg 1-01 mg by ity of tablet 00:00: mouth in [place] 00 the Medical morning Branch and 300 mg in the evening. allopurinoL 2022-1 Yes 300mg Take 300 U nivers 300 mg 1-01 mg by ity of tablet 00:00: mouth in [place] 00 the Medical morning Branch and 300 mg in the evening. allopurinoL 2022-1 Yes 300mg Take 300 U nivers 300 mg 1-01 mg by ity of tablet 00:00: mouth in [place] 00 the Medical morning Branch and 300 mg in the evening. allopurinoL 2022-1 Yes 300mg Take 300 U nivers 300 mg 1-01 mg by ity of tablet 00:00: mouth in [place] [address] the Medical morning Branch and 300 mg in the evening. allopurinoL 2022-1 Yes 300mg Take 300 U nivers 300 mg 1-01 mg by ity of tablet 00:00: mouth in [place] 00 the Medical morning Branch and 300 mg in the evening. allopurinoL 2022-1 Yes 300mg Take 300 U nivers 300 mg 1-01 mg by ity of tablet 00:00: mouth in [place] [address] the Medical morning Branch and 300 mg in the evening. allopurinoL 2022-1 Yes 300mg Take 300 U nivers 300 mg 1-01 mg by ity of tablet 00:00: mouth in [place] [address] the Medical morning Branch and 300 mg in the evening. allopurinoL 2022-1 Yes 300mg Take 300 U nivers 300 mg 1-01 mg by ity of tablet 00:00: mouth in [place] [address] the Medical morning Branch and 300 mg in the evening. allopurinoL 2022-1 Yes 300mg Take 300 U nivers 300 mg 1-01 mg by ity of tablet 00:00: mouth in [place] [address] the Medical morning Branch and 300 mg in the evening. allopurinoL 2022-1 Yes 300mg Take 300 U nivers 300 mg 1-01 mg by ity of tablet 00:00: mouth in [place] 00 the Medical morning Branch and 300 mg in the evening. allopurinoL 2021-11 Yes 300mg Take 300 U nivers 300 mg 1-01 mg by ity of tablet 00:00: mouth in [place] 00 the Medical morning Branch and 300 mg in the evening. allopurinoL 2021-11 Yes 300mg Take 1 Uni vers 300 mg 1-01 tablet by ity of tablet 00:00: mouth in [place] 00 the Medical morning Branch and 1 tablet in the evening. allopurinoL 2021-11 Yes 300mg Take 1 Uni vers 300 mg 1-01 tablet by ity of tablet 00:00: mouth in [place] 00 the Medical morning Branch and 1 tablet in the evening. allopurinoL 2021-11 Yes 300mg Take 1 Uni vers 300 mg 1-01 tablet by ity of tablet 00:00: mouth in [place] 00 the Medical morning Branch and 1 tablet in the evening. allopurinol 2021-11- No TAKE 1 Uni vers (ZYLOPRIM) 11-01 03-20 TABLET BY ity of 300 mg 00:00: 00:00 MOUTH [place] tablet 00 :00 TWICE MD DAILY [facility] allopurinol 2021-11- No TAKE 1 Uni vers (ZYLOPRIM) 11-01 03-20 TABLET BY ity of 300 mg 00:00: 00:00 MOUTH [place] tablet 00 :00 TWICE MD DAILY [facility] allopurinol 2021-11- No TAKE 1 Uni vers (ZYLOPRIM) 11-01 03-20 TABLET BY ity of 300 mg 00:00: 00:00 MOUTH [place] tablet 00 :00 TWICE MD DAILY [facility] allopurinol 2021-11- No TAKE 1 Uni vers (ZYLOPRIM) 11-01 03-20 TABLET BY ity of 300 mg 00:00: 00:00 MOUTH [place] tablet 00 :00 TWICE MD DAILY [facility] triamcinolo 2021-11 Yes APPLY Unive [...] :00 AFFECTED MD AREA TWICE [place] DAILY [facility] triamcinolo 2021-11- No APPLY Univ ers ne 0-28 03-14 TOPICALLY ity of (KENALOG) 00:00: 00:00 TO THE [place] 0.1% cream 00 :00 AFFECTED MD AREA TWICE [place] DAILY n [facility] triamcinolo 2021-11- No APPLY Univ ers ne 0-28 03-14 TOPICALLY ity of (KENALOG) 00:00: 00:00 TO THE [place] 0.1% cream 00 :00 AFFECTED MD AREA TWICE [facility] triamcinolo 2021-11- No APPLY Univ ers ne 0-28 03-14 TOPICALLY ity of (KENALOG) 00:00: 00:00 TO THE [place] 0.1% cream 00 :00 AFFECTED MD AREA TWICE [place] DAILY [facility] ketorolac 2021-11- No [id number] 30mg Univers (TORADOL) 0-25 -9104 ity of injection 16:45: 16:45 [place] 30 mg 00 :00 [facility] ketorolac 2021-11- No [id number] 30mg 30 mg, Univers (TORADOL) 0-25 08-25 9105 [facility] ity of injection 16:45: 16:45 [place], ONCE, [place] 30 mg 00 :00 1 dose, On [facility] 08/25/22 at 1145, Routine ketorolac 2021-11- No [id number] 30mg Univers (TORADOL) 0-25 08-2505 ity of injection 16:45: 16:45 [place] 30 mg 00 :00 [facility] ketorolac 2021-11- No [id number] 30mg 30 mg, Univers (TORADOL) 0-25 08-25 [facility] ity of injection 16:45: 16:45 [place], ONCE, [place] 30 mg 00 :00 1 dose, On [facility] 08/25/22 at 1145, Routine rizatriptan 2021-11 Yes [id number] 5mg Take 1 [facility] 5 mg 0-25 9105 tablet by ity of disintegrat 00:00: mouth as [place] ing tablet 00 needed for Med ical Migraine Branch (take 1 on onset of migraine and can repeat in 2 hrs). May repeat in 2 hours if needed rizatriptan 2021-11 Yes [id number] 5mg Take 1 [facility] 5 mg 0-25 9105 tablet by ity of disintegrat 00:00: mouth as [place] ing tablet 00 needed for Med ical Migraine Branch (take 1 on onset of migraine and can repeat in 2 hrs). May repeat in 2 hours if needed rizatriptan 2021-11 Yes [id number] 5mg Take 1 [facility] 5 mg 0-25 9105 tablet by ity of disintegrat 00:00: mouth as [place] ing tablet 00 needed for Med ical Migraine Branch (take 1 on onset of migraine and can repeat in 2 hrs). May repeat in 2 hours if needed rizatriptan 2021-11 Yes [id number] 5mg Take 1 [facility] 5 mg 0-25 9105 tablet by ity of disintegrat 00:00: mouth as [place] ing tablet 00 needed for Med ical Migraine Branch (take 1 on onset of migraine and can repeat in 2 hrs). May repeat in 2 hours if needed rizatriptan 2021-11 Yes [id number] 5mg Take 1 [facility] 5 mg 0-25 9105 tablet by ity of disintegrat 00:00: mouth as [place] ing tablet 00 needed for Med ical Migraine Branch (take 1 on onset of migraine and can repeat in 2 hrs). May repeat in 2 hours if needed rizatriptan 2021-11 Yes [id number] 5mg Take 1 [facility] 5 mg 0-25 9105 tablet by ity of disintegrat 00:00: mouth as [place] ing tablet 00 needed for Med ical Migraine Branch (take 1 on onset of migraine and can repeat in 2 hrs). May repeat in 2 hours if needed rizatriptan 2021-11 Yes [id number] 5mg Take 1 [facility] 5 mg 0-25 9105 tablet by ity of disintegrat 00:00: mouth as [place] ing tablet 00 needed for Med ical Migraine Branch (take 1 on onset of migraine and can repeat in 2 hrs). May repeat in 2 hours if needed rizatriptan 2021-11 Yes [id number] 5mg Take 1 [facility] 5 mg 0-25 9105 tablet by [facility] disintegrat 00:00: [place] ing tablet 00 needed for Med ical Migraine Branch (take 1 on onset of migraine and can repeat in 2 hrs). May repeat in 2 hours if needed rizatriptan 2021-11 Yes [id number] 5mg Take 1 [facility] 5 mg 0-25 9105 tablet by [facility] disintegrat 00:00: mouth [place] ing tablet 00 needed for Med ical Migraine Branch (take 1 on onset of migraine and can repeat in 2 hrs). May repeat in 2 hours if needed rizatriptan 2021-11 Yes [id number] 5mg Take 1 [facility] 5 mg 0-25 9105 tablet by [facility] disintegrat 00:00: mouth [place] ing tablet 00 needed for Med ical Migraine Branch (take 1 on onset of migraine and can repeat in 2 hrs). May repeat in 2 hours if needed rizatriptan 2021-11 Yes [id number] 5mg Take 1 [facility] 5 mg 0-25 9105 tablet by [facility] of disintegrat 00:00: mouth [place] ing tablet 00 needed for Med ical Migraine Branch (take 1 on onset of migraine and can repeat in 2 hrs). May repeat in 2 hours if needed rizatriptan 2021-11 Yes [id number] 5mg Take 1 [facility] 5 mg 0-25 9105 tablet by [facility] of disintegrat 00:00: mouth [place] ing tablet 00 needed for Med ical Migraine Branch (take 1 on onset of migraine and can repeat in 2 hrs). May repeat in 2 hours if needed rizatriptan 2021-11 Yes [id number] 5mg Take 1 [facility] 5 mg 0-25 9105 tablet by [facility] of disintegrat 00:00: mouth [place] ing tablet 00 needed for Med ical Migraine Branch (take 1 on onset of migraine and can repeat in 2 hrs). May repeat in 2 hours if needed rizatriptan 2021-11 Yes [id number] 5mg Take 1 [facility] 5 mg 0-25 9105 tablet by [facility] of disintegrat 00:00: mouth [place] ing tablet 00 needed for Med ical Migraine Branch (take 1 on onset of migraine and can repeat in 2 hrs). May repeat in 2 hours if needed rizatriptan 2021-11 Yes [id number] 5mg Take 1 [facility] 5 mg 0-25 9105 tablet by [facility] disintegrat 00:00: mouth [place] ing tablet 00 needed for Med ical Migraine Branch (take 1 on onset of migraine and can repeat in 2 hrs). May repeat in 2 hours if needed rizatriptan 2021-11 Yes [id number] 5mg Take 1 [facility] 5 mg 0-25 9105 tablet by [facility] of disintegrat 00:00: mouth [place] ing tablet 00 needed for Med ical Migraine Branch (take 1 on onset of migraine and can repeat in 2 hrs). May repeat in 2 hours if needed rizatriptan 2021-11 Yes [id number] 5mg Take 1 [facility] 5 mg 0-25 9105 tablet by [facility] of disintegrat 00:00: mouth [place] ing tablet 00 needed for Med ical Migraine Branch (take 1 on onset of migraine and can repeat in 2 hrs). May repeat in 2 hours if needed rizatriptan 2021-11 Yes [id number] 5mg Take 1 [facility] 5 mg 0-25 9105 tablet by [facility] of disintegrat 00:00: mouth [place] ing tablet 00 needed for Med ical Migraine Branch (take 1 on onset of migraine and can repeat in 2 hrs). May repeat in 2 hours if needed rizatriptan 2021-11 Yes [id number] 5mg Take 1 [facility] 5 mg 0-25 9105 tablet by [facility] of disintegrat 00:00: mouth [place] ing tablet 00 needed for Med ical Migraine Branch (take 1 on onset of migraine and can repeat in 2 hrs). May repeat in 2 hours if needed rizatriptan 2021-11 Yes [id number] 5mg Take 1 [facility] 5 mg 0-25 9105 tablet by [facility] of disintegrat 00:00: mouth [place] ing tablet 00 needed for Med ical Migraine Branch (take 1 on onset of migraine and can repeat in 2 hrs). May repeat in 2 hours if needed rizatriptan 2021-11 Yes [id number] 5mg Take 1 [facility] 5 mg 0-25 9105 tablet by [facility] of disintegrat 00:00: mouth [place] ing tablet 00 needed for Med ical Migraine Branch (take 1 on onset of migraine and can repeat in 2 hrs). May repeat in 2 hours if needed rizatriptan 2021-11 Yes [id number] 5mg Take 1 [facility] 5 mg 0-25 9105 tablet by [facility] of disintegrat 00:00: mouth [place] ing tablet 00 needed for Med ical Migraine Branch (take 1 on onset of migraine and can repeat in 2 hrs). May repeat in 2 hours if needed rizatriptan 2021-11 Yes [id number] 5mg Take 1 [facility] 5 mg 0-25 9105 tablet by [facility] of disintegrat 00:00: mouth [place] ing tablet 00 needed for Med ical Migraine Branch (take 1 on onset of migraine and can repeat in 2 hrs). May repeat in 2 hours if needed rizatriptan 2021-11 Yes [id number] 5mg Take 1 [facility] 5 mg 0-25 9105 tablet by [facility] of disintegrat 00:00: mouth [place] ing tablet 00 needed for Med ical Migraine Branch (take 1 on onset of migraine and can repeat in 2 hrs). May repeat in 2 hours if needed rizatriptan 2021-11 Yes [id number] 5mg Take 1 [facility] 5 mg 0-25 9105 tablet by [facility] of disintegrat 00:00: mouth [place] ing tablet 00 needed for Med ical Migraine Branch (take 1 on onset of migraine and can repeat in 2 hrs). May repeat in 2 hours if needed rizatriptan 2021-11 Yes [id number] 5mg Take 1 [facility] 5 mg 0-25 9105 tablet by [facility] of disintegrat 00:00: mouth [place] ing tablet 00 needed for Med ical Migraine Branch (take 1 on onset of migraine and can repeat in 2 hrs). May repeat in 2 hours if needed rizatriptan 2021-11 Yes [id number] 5mg Take 1 [facility] 5 mg 0-25 9105 tablet by [facility] of disintegrat 00:00: mouth [place] ing tablet 00 needed for Med ical Migraine Branch (take 1 on onset of migraine and can repeat in 2 hrs). May repeat in 2 hours if needed rizatriptan 2021-11 Yes [id number] 5mg Take 1 [facility] 5 mg 0-25 9105 tablet by [facility] of disintegrat 00:00: mouth [place] ing tablet 00 needed for Med ical Migraine Branch (take 1 on onset of migraine and can repeat in 2 hrs). May repeat in 2 hours if needed rizatriptan 2021-11 Yes [id number] 5mg Take 1 [facility] 5 mg 0-25 9105 tablet by [facility] of disintegrat 00:00: mouth [place] ing tablet 00 needed for Med ical Migraine Branch (take 1 on onset of migraine and can repeat in 2 hrs). May repeat in 2 hours if needed rizatriptan 2021-11 Yes [id number] 5mg Take 1 [facility] 5 mg 0-25 9105 tablet by [facility] of disintegrat 00:00: mouth [place] ing tablet 00 needed for Med ical Migraine Branch (take 1 on onset of migraine and can repeat in 2 hrs). May repeat in 2 hours if needed rizatriptan 2021-11 Yes [id number] 5mg Take 1 [facility] 5 mg 0-25 9105 tablet by [facility] of disintegrat 00:00: mouth [place] ing tablet 00 needed for Med ical Migraine Branch (take 1 on onset of migraine and can repeat in 2 hrs). 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 SPECIALIST 0-25 03-14 ity of ) 5 mg 00:00: 00:00 [place] disintegrat 00 :[facility] Unive rs (MAXALT-OCCUPANCY SPECIALIST 0-25 03-14 ity of ) 5 mg 00:00: 00:00 [place] [facility]integrat 00 :[facility] Unive rs (MAXALT-OCCUPANCY SPECIALIST 0-25 03-14 ity of ) 5 mg 00:00: 00:00 [place] disintegrat 00 :[facility] Unive rs (MAXALT-OCCUPANCY SPECIALIST 0-25 03-14 ity of ) 5 mg 00:00: 00:00 [place] disintegrat 00 :00 MD ing tablet [facility] NITROGLYCER 2021-[id number] 1 [facility] IN 0.4 mg 0-24 TABLET ity of sublingual 00:00: UNDER THE [place] tablet 00 TONGUE Medical EVERY 5 Branch MINUTES NEEDED FOR CHEST PAIN. NITROGLYCER 2021-[id number] 1 [facility] IN 0.4 mg 0-24 TABLET ity of sublingual 00:00: UNDER THE [place] tablet 00 TONGUE Medical EVERY 5 Branch MINUTES NEEDED FOR CHEST PAIN. NITROGLYCER 2021-[id number] 1 [facility] IN 0.4 mg 0-24 TABLET ity of sublingual 00:00: UNDER THE [place] tablet 00 TONGUE Medical EVERY 5 Branch MINUTES NEEDED FOR CHEST PAIN. NITROGLYCER 2021-[id number] 1 [facility] IN 0.4 mg 0-24 TABLET ity of sublingual 00:00: UNDER THE [place] tablet 00 TONGUE Medical EVERY 5 Branch MINUTES NEEDED FOR CHEST PAIN. NITROGLYCER 2021-[id number] 1 [facility] IN 0.4 mg 0-24 TABLET ity of sublingual 00:00: UNDER THE [place] tablet 00 TONGUE Medical EVERY 5 Branch MINUTES NEEDED FOR CHEST PAIN. NITROGLYCER 2021-[id number] 1 [facility] IN 0.4 mg 0-24 TABLET ity of sublingual 00:00: UNDER THE [place] tablet 00 TONGUE Medical EVERY 5 Branch MINUTES NEEDED FOR CHEST PAIN. NITROGLYCER 2021-[id number] 1 [facility] IN 0.4 mg 0-24 TABLET ity of sublingual 00:00: UNDER THE [place] tablet 00 TONGUE Medical EVERY 5 Branch MINUTES NEEDED FOR CHEST PAIN. NITROGLYCER 2021-[id number] 1 [facility] IN 0.4 mg 0-24 TABLET ity of sublingual 00:00: UNDER THE [place] tablet 00 TONGUE Medical EVERY 5 Branch MINUTES NEEDED FOR CHEST PAIN. NITROGLYCER 2021-[id number] 1 [facility] IN 0.4 mg 0-24 TABLET ity of sublingual 00:00: UNDER THE [place] tablet 00 TONGUE Medical EVERY 5 Branch MINUTES NEEDED FOR CHEST PAIN. NITROGLYCER 2021-[id number] 1 [facility] IN 0.4 mg 0-24 TABLET ity of sublingual 00:00: UNDER THE [place] tablet 00 TONGUE Medical EVERY 5 Branch MINUTES NEEDED FOR CHEST PAIN. NITROGLYCER 2021-[id number] 1 [facility] IN 0.4 mg 0-24 TABLET ity of sublingual 00:00: UNDER THE [place] tablet 00 TONGUE Medical EVERY 5 Branch MINUTES NEEDED FOR CHEST PAIN. NITROGLYCER 2021-[id number] 1 [facility] IN 0.4 mg 0-24 TABLET ity of sublingual 00:00: UNDER THE [place] tablet 00 TONGUE Medical EVERY 5 Branch MINUTES NEEDED FOR CHEST PAIN. NITROGLYCER 2021-[id number] 1 [facility] IN 0.4 mg 0-24 TABLET ity of sublingual 00:00: UNDER THE [place] tablet 00 TONGUE Medical EVERY 5 Branch MINUTES NEEDED FOR CHEST PAIN. NITROGLYCER 2021-[id number] 1 [facility] IN 0.4 mg 0-24 TABLET ity of sublingual 00:00: UNDER THE [place] tablet 00 TONGUE Medical EVERY 5 Branch MINUTES NEEDED FOR CHEST PAIN. NITROGLYCER 2021-[id number] 1 [facility] IN 0.4 mg 0-24 TABLET ity of sublingual 00:00: UNDER THE [place] tablet 00 TONGUE Medical EVERY 5 Branch MINUTES NEEDED FOR CHEST PAIN. NITROGLYCER 2021-[id number] 1 [facility] IN 0.4 mg 0-24 TABLET ity of sublingual 00:00: UNDER THE [place] tablet 00 TONGUE Medical EVERY 5 Branch MINUTES NEEDED FOR CHEST PAIN. NITROGLYCER 2021-[id number] 1 [facility] IN 0.4 mg 0-24 TABLET ity of sublingual 00:00: UNDER THE [place] tablet 00 TONGUE Medical EVERY 5 Branch MINUTES NEEDED FOR CHEST PAIN. NITROGLYCER 2021-[id number] 1 [facility] IN 0.4 mg 0-24 TABLET ity of sublingual 00:00: UNDER THE [place] tablet 00 TONGUE Medical EVERY 5 Branch MINUTES NEEDED FOR CHEST PAIN. NITROGLYCER 2021-[id number] 1 [facility] IN 0.4 mg 0-24 TABLET ity of sublingual 00:00: UNDER THE [place] tablet 00 TONGUE Medical EVERY 5 Branch MINUTES NEEDED FOR CHEST PAIN. NITROGLYCER 2021-[id number] 1 [facility] IN 0.4 mg 0-24 TABLET ity of sublingual 00:00: UNDER THE [place] tablet 00 TONGUE Medical EVERY 5 Branch MINUTES NEEDED FOR CHEST PAIN. NITROGLYCER 2021-[id number] 1 [facility] IN 0.4 mg 0-24 TABLET ity of sublingual 00:00: UNDER THE [place] tablet 00 TONGUE Medical EVERY 5 Branch MINUTES NEEDED FOR CHEST PAIN. NITROGLYCER 2021-[id number] 1 [facility] IN 0.4 mg 0-24 TABLET ity of sublingual 00:00: UNDER THE [place] tablet 00 TONGUE Medical EVERY 5 Branch MINUTES NEEDED FOR CHEST PAIN. NITROGLYCER 2021-[id number] 1 [facility] IN 0.4 mg 0-24 TABLET ity of sublingual 00:00: UNDER THE [place] tablet 00 TONGUE Medical EVERY 5 Branch MINUTES NEEDED FOR CHEST PAIN. NITROGLYCER 2021-[id number] 1 [facility] IN 0.4 mg 0-24 TABLET ity of sublingual 00:00: UNDER THE [place] tablet 00 TONGUE Medical EVERY 5 Branch MINUTES NEEDED FOR CHEST PAIN. NITROGLYCER 2021-[id number] 1 [facility] IN 0.4 mg 0-24 TABLET ity of sublingual 00:00: UNDER THE [place] tablet 00 TONGUE Medical EVERY 5 Branch MINUTES NEEDED FOR CHEST PAIN. NITROGLYCER 2021-[id number] 1 [facility] IN 0.4 mg 0-24 TABLET ity of sublingual 00:00: UNDER THE [place] tablet 00 TONGUE Medical EVERY 5 Branch MINUTES NEEDED FOR CHEST PAIN. NITROGLYCER 2021-[id number] 1 [facility] IN 0.4 mg 0-24 TABLET ity of sublingual 00:00: UNDER THE [place] tablet 00 TONGUE Medical EVERY 5 Branch MINUTES NEEDED FOR CHEST PAIN. NITROGLYCER 2021-[id number] 1 [facility] IN 0.4 mg 0-24 TABLET ity of sublingual 00:00: UNDER THE [place] tablet 00 TONGUE Medical EVERY 5 Branch MINUTES NEEDED FOR CHEST PAIN. NITROGLYCER 2021-[id number] 1 [facility] IN 0.4 mg 0-24 TABLET ity of sublingual 00:00: UNDER THE [place] tablet 00 TONGUE Medical EVERY 5 Branch MINUTES NEEDED FOR CHEST PAIN. NITROGLYCER 2021-[id number] 1 [facility] IN 0.4 mg 0-24 TABLET ity of sublingual 00:00: UNDER THE [place] tablet 00 TONGUE Medical EVERY 5 Branch MINUTES NEEDED FOR CHEST PAIN. NITROGLYCER 2021-[id number] 1 [facility] IN 0.4 mg 0-24 TABLET ity of sublingual 00:00: UNDER THE [place] tablet 00 TONGUE Medical EVERY 5 Branch MINUTES NEEDED FOR CHEST PAIN. NITROGLYCER 2021-[id number] 1 [facility] IN 0.4 mg 0-24 TABLET ity of sublingual 00:00: UNDER THE [place] tablet 00 TONGUE Medical EVERY 5 Branch MINUTES NEEDED FOR CHEST PAIN. NITROGLYCER 2021-[id number] 1 [facility] IN 0.4 mg 0-24 TABLET ity of sublingual 00:00: UNDER THE [place] tablet 00 TONGUE Medical EVERY 5 Branch MINUTES NEEDED FOR CHEST PAIN. mesalamine 2021-11 Yes TAKE 4 Unive rs (APRISO) 0-24 CAPSULES ity of 0.375 gram 00:00: BY MOUTH [place] 24 hr 00 DAILY MD capsule [facility] 2021-11 Yes TAKE 4 Unive rs (APRISO) 0-24 CAPSULES ity of 0.375 gram 00:00: BY MOUTH [place] 24 hr 00 [facility]ILY [facility] 4 Unive rs (APRISO) 0-24 CAPSULES ity of 0.375 gram 00:00: BY MOUTH [place] 24 hr 00 DAILY MD capsule [facility] 2021-11 Yes TAKE 4 Unive rs (APRISO) 0-24 CAPSULES ity of 0.375 gram 00:00: BY MOUTH [place] 24 hr 00 DAILY MD capsule [facility] GABAPENTIN 2021-11 Yes [id number] TAKE 1 [facility] 600 mg 0-21 TABLET BY ity of tablet 00:00: MOUTH THREE Medical TIMES Branch DAILY GABAPENTIN 2021- Yes [id number] TAKE 1 [facility] 600 mg 0-21 TABLET BY ity of tablet 00:00: MOUTH THREE Medical TIMES Branch DAILY GABAPENTIN 2021- Yes [id number] TAKE 1 [facility] 600 mg 0-21 TABLET BY ity of tablet 00:00: MOUTH THREE Medical TIMES Branch DAILY GABAPENTIN 2021- Yes [id number] TAKE 1 [facility] 600 mg 0-21 TABLET BY ity of tablet 00:00: MOUTH THREE Medical TIMES Branch DAILY GABAPENTIN 2021- Yes [id number] TAKE 1 [facility] 600 mg 0-21 TABLET BY ity of tablet 00:00: MOUTH THREE Medical TIMES Branch DAILY GABAPENTIN 2021- Yes [id number] TAKE 1 [facility] 600 mg 0-21 TABLET BY ity of tablet 00:00: MOUTH THREE Medical TIMES Branch DAILY GABAPENTIN 2021- Yes [id number] TAKE 1 [facility] 600 mg 0-21 TABLET BY ity of tablet 00:00: MOUTH THREE Medical TIMES Branch DAILY GABAPENTIN 2021- Yes [id number] TAKE 1 [facility] 600 mg 0-21 TABLET BY ity of tablet 00:00: MOUTH THREE Medical TIMES Branch DAILY GABAPENTIN 2021- Yes [id number] TAKE 1 [facility] 600 mg 0-21 TABLET BY ity of tablet 00:00: MOUTH THREE Medical TIMES Branch DAILY GABAPENTIN 2021- Yes [id number] TAKE 1 [facility] 600 mg 0-21 TABLET BY ity of tablet 00:00: MOUTH [place] 00 THREE Medical TIMES Branch DAILY GABAPENTIN 2021-11 Yes [id number] TAKE 1 [facility] 600 mg 0-21 TABLET BY ity of tablet 00:00: MOUTH [place] 00 THREE Medical TIMES Branch DAILY GABAPENTIN 2021-11- No [id number] TAKE 1 [facility] 600 mg 0-21 11-17 TABLET BY ity of tablet 00:00: 00:00 MOUTH [place] 00 :00 THREE Medical TIMES Branch DAILY sucralfate 2021-11- No TAKE 1 Univ ers (CARAFATE) 0-20 02-14 TABLET BY ity of 1 g tablet 00:00: 00:00 MOUTH [place] 00 :00 TWICE MD DAILY [facility] sucralfate 2021-11- No TAKE 1 Univ ers (CARAFATE) 0-20 02-14 TABLET BY ity of 1 g tablet 00:00: 00:00 MOUTH [place] 00 :00 TWICE MD DAILY [facility] sucralfate 2021-11- No TAKE 1 Univ ers (CARAFATE) 0-20 02-14 TABLET BY ity of 1 g tablet 00:00: 00:00 MOUTH [place] 00 :00 TWICE MD DAILY [facility] sucralfate 2021-11- No TAKE 1 Univ ers (CARAFATE) 0-20 02-14 TABLET BY ity of 1 g tablet 00:00: 00:00 MOUTH [place] 00 :00 TWICE MD DAILY [facility] HYDROcodone 2021-11 Yes [id number] 1{tbl} [...] Indication s: chronic pain HYDRALAZINE 2021-11 Yes [id number] TAKE 1 [facility] 100 mg 0-05 TABLET BY ity of tablet 00:00: MOUTH [place] 00 THREE Medical TIMES Branch DAILY HYDRALAZINE 2021-11 Yes [id number] TAKE 1 [facility] 100 mg 0-05 TABLET BY ity of tablet 00:00: MOUTH [place] 00 THREE Medical TIMES Branch DAILY HYDRALAZINE 2021-11 Yes [id number] TAKE 1 [facility] 100 mg 0-05 TABLET BY ity of tablet 00:00: [facility] THREE Medical TIMES Branch DAILY HYDRALAZINE 2021-11 Yes [id number] TAKE 1 [facility] 100 mg 0-05 TABLET BY ity of tablet 00:00: [facility] THREE Medical TIMES Branch DAILY HYDRALAZINE 2021-11 Yes [id number] TAKE 1 [facility] 100 mg 0-05 TABLET BY ity of tablet 00:00: MOUTH [place] THREE Medical TIMES Branch DAILY HYDRALAZINE 2021-11 Yes [id number] TAKE 1 [facility] 100 mg 0-05 TABLET BY ity of tablet 00:00: [facility] THREE Medical TIMES Branch DAILY HYDRALAZINE 2021-11 Yes [id number] TAKE 1 [facility] 100 mg 0-05 TABLET BY ity of tablet 00:00: [facility] THREE Medical TIMES Branch DAILY HYDRALAZINE 2021-11 Yes [id number] TAKE 1 [facility] 100 mg 0-05 TABLET BY ity of tablet 00:00: [facility] 00 THREE Medical TIMES Branch DAILY HYDRALAZINE 2021-11 Yes [id number] TAKE 1 [facility] 100 mg 0-05 TABLET BY ity of tablet 00:00: [facility] 00 THREE Medical TIMES Branch DAILY HYDRALAZINE 2021-11 Yes [id number] TAKE 1 [facility] 100 mg 0-05 TABLET BY ity of tablet 00:00: [facility] THREE Medical TIMES Branch DAILY HYDRALAZINE 2021-11 Yes [id number] TAKE 1 [facility] 100 mg 0-05 TABLET BY ity of tablet 00:00: [facility] 00 THREE Medical TIMES Branch DAILY HYDRALAZINE 2021-11- No [id number] TAKE 1 [facility] 100 mg 0-05 11-03 [...] x 5/16 Syrg Branch GABAPENTIN 2021-0 Yes [id number] TAKE 1 [facility] 600 mg 9-26 TABLET [...] x 5/16 Syrg Branch GABAPENTIN 2021-0 Yes [id number] TAKE 1 [facility] 600 mg 9-26 TABLET [...] x 5/16 Syrg Branch GABAPENTIN 2021-0 Yes [id number] TAKE 1 [facility] 600 mg 9-26 TABLET [...] x 5/16 Syrg Branch GABAPENTIN 2021-0 Yes [id number] TAKE 1 [facility] 600 mg 9-26 TABLET BY ity of tablet 00:00: MOUTH [place] 00 THREE Medical TIMES Branch DAILY NITROGLYCER 2021-[address] 1 Uni vers IN 0.4 mg 9-26 TABLET ity of sublingual 00:00: [place]ER THE [place] tablet 00 TONGUE Medical EVERY 5 Branch MINUTES NEEDED FOR CHEST PAIN. INSULIN 2022-0 Yes USE TWICE Unive rs [...] of DLE U-100 1 00:00: MEALS [place] [facility] 31 gauge 00 Medical x 5/16 Syrg Branch INSULIN 2022-0 Yes USE TWICE Unive rs SYRINGE-NEE 9-26 DAILY WITH it y of DLE U-100 1 00:00: MEALS [facility] 31 gauge 00 Medical x 5/16 Syrg Branch INSULIN 2022-0 Yes USE TWICE Unive rs SYRINGE-NEE 9-26 DAILY WITH it y of DLE U-100 1 00:00: MEALS [facility] 31 gauge 00 Medical x 5/16 Syrg Branch amLODIPine 2022-0 Yes 5mg Take 5 mg Un ally 5 mg tablet 9-26 by mouth ity of 00:00: in the [place] morning. Medical Branch INSULIN 2-0 Yes USE TWICE Unive rs SYRINGE-NEE 9-26 DAILY WITH it y of DLE U-100 1 00:00: MEALS [facility] 31 gauge 00 Medical x 5/16 Syrg Branch amLODIPine 2-0 Yes 5mg Take 5 mg Un ally 5 mg tablet 9-26 by mouth ity of 00:00: in the [place] morning. Medical Branch INSULIN 2022-0 Yes USE TWICE Unive rs SYRINGE-NEE 9-26 DAILY WITH it y of DLE U-100 1 00:00: MEALS [facility] 31 gauge 00 Medical x 5/16 Syrg Branch amLODIPine 2022-0 Yes 5mg Take 5 mg Un ally 5 mg tablet 9-26 by mouth ity of 00:00: in the [place] morning. Medical Branch INSULIN 2022-0 Yes USE TWICE Unive rs SYRINGE-NEE 9-26 DAILY WITH it y of DLE U-100 1 00:00: MEALS [place] mL 31 gauge 00 Medical x 5/16 Syrg Branch amLODIPine 2022-0 Yes 5mg Take 5 mg Un ally 5 mg tablet 9-26 by mouth ity of 00:00: in the [place] morning. Medical Branch INSULIN 2022-0 Yes USE TWICE Unive rs SYRINGE-NEE 9-26 DAILY WITH it y of DLE U-100 1 00:00: MEALS [place] mL 31 gauge 00 Medical x 5/16 Syrg Branch amLODIPine 2022-0 Yes 5mg Take 5 mg Un ally 5 mg tablet 9-26 by mouth ity of 00:00: in the [place] morning. Medical Branch INSULIN 2022-0 Yes USE TWICE Unive rs SYRINGE-NEE 9-26 DAILY WITH it y of DLE U-100 1 00:00: MEALS [place] mL 31 gauge 00 Medical x 5/16 Syrg Branch amLODIPine 2022-0 Yes 5mg Take 5 mg Un ally 5 mg tablet 9-26 by mouth ity of 00:00: in the [place] morning. Medical Branch INSULIN 2022-0 Yes USE TWICE Unive rs SYRINGE-NEE 9-26 DAILY WITH it y of DLE U-100 1 00:00: MEALS [place] mL 31 gauge 00 Medical x 5/16 Syrg Branch amLODIPine 2022-0 Yes 5mg Take 5 mg Un ally 5 mg tablet 9-26 by mouth ity of 00:00: in the [place] morning. Medical Branch INSULIN 2022-0 Yes USE TWICE Unive rs SYRINGE-NEE 9-26 DAILY WITH it y of DLE U-100 1 00:00: MEALS [place] [facility] 31 gauge 00 Medical x 5/16 Syrg Branch amLODIPine 2022-0 Yes 5mg Take 5 mg Un ally 5 mg tablet 9-26 by mouth ity of 00:00: in the [place] morning. Medical Branch INSULIN 2022-0 Yes USE TWICE Unive rs SYRINGE-NEE 9-26 DAILY WITH it y of DLE U-100 1 00:00: MEALS [place] mL 31 gauge 00 Medical x 5/16 Syrg Branch amLODIPine 2022-0 Yes 5mg Take 5 mg Un ally 5 mg tablet 9-26 by mouth ity of 00:00: in the [place] morning. Medical Branch INSULIN 2022-0 Yes USE TWICE Unive rs SYRINGE-NEE 9-26 DAILY WITH it y of DLE U-100 1 00:00: MEALS [place] mL 31 gauge 00 Medical x 5/16 Syrg Branch amLODIPine 2022-0 Yes 5mg Take 5 mg Un ally 5 mg tablet 9-26 by mouth ity of 00:00: in the [place] morning. Medical Branch INSULIN 2022-0 Yes USE TWICE Unive rs SYRINGE-NEE 9-26 DAILY WITH it y of DLE U-100 1 00:00: MEALS [place] mL 31 gauge 00 Medical x 5/16 Syrg Branch amLODIPine 2022-0 Yes 5mg Take 5 mg Un ally 5 mg tablet 9-26 by mouth ity of 00:00: in the [place] morning. Medical Branch INSULIN 2022-0 Yes USE TWICE Unive rs SYRINGE-NEE 9-26 DAILY WITH it y of DLE U-100 1 00:00: MEALS [place] mL 31 gauge 00 Medical x 5/16 Syrg Branch amLODIPine 2-0 Yes 5mg Take 5 mg Un ally 5 mg tablet 9-26 by mouth ity of 00:00: in the [place] morning. Medical Branch INSULIN 2-0 Yes USE TWICE Unive rs SYRINGE-NEE 9-26 DAILY WITH it y of DLE U-100 1 00:00: MEALS [place] [facility] 31 gauge 00 Medical x 5/16 Syrg Branch amLODIPine 2-0 Yes 5mg Take 5 mg Un ally 5 mg tablet 9-26 by mouth ity of 00:00: in the [place] morning. Medical Branch INSULIN 2-0 Yes USE TWICE Unive rs SYRINGE-NEE 9-26 DAILY WITH it y of DLE U-100 1 00:00: MEALS [place] mL 31 gauge 00 Medical x 5/16 Syrg Branch amLODIPine 2-0 Yes 5mg Take 5 mg Un ally 5 mg tablet 9-26 by mouth ity of 00:00: in the [place] morning. Medical Branch INSULIN 2022-0 Yes USE TWICE Unive rs SYRINGE-NEE 9-26 DAILY WITH it y of DLE U-100 1 00:00: MEALS [place] mL 31 gauge 00 Medical x 5/16 Syrg Branch amLODIPine 2022-0 Yes 5mg Take 5 mg Un ally 5 mg tablet 9-26 by mouth ity of 00:00: in the [place] morning. Medical Branch INSULIN 2022-0 Yes USE TWICE Unive rs SYRINGE-NEE 9-26 DAILY WITH it y of DLE U-100 1 00:00: MEALS [place] mL 31 gauge 00 Medical x 5/16 Syrg Branch amLODIPine 2022-0 Yes 5mg Take 5 mg Un ally 5 mg tablet 9-26 by mouth ity of 00:00: in the [place] morning. Medical Branch INSULIN 2021-0 Yes USE TWICE Unive rs SYRINGE-NEE 9-26 DAILY WITH it y of DLE U-100 1 00:00: MEALS [place] mL 31 gauge 00 Medical x 5/16 Syrg Branch amLODIPine 2021-0 Yes 5mg Take 5 mg Un ally 5 mg tablet 9-26 by mouth ity of 00:00: in the [place] morning. Medical Branch INSULIN 2021-0 Yes USE TWICE Unive rs SYRINGE-NEE 9-26 DAILY WITH it y of DLE U-100 1 00:00: MEALS [place] mL 31 gauge 00 Medical x 5/16 Syrg Branch amLODIPine 2021-0 Yes 5mg Take 1 Unive rs 5 mg tablet 9-26 tablet by ity of 00:00: mouth in [place] the Medical morning. Branch INSULIN 2021-0 Yes USE TWICE Unive rs SYRINGE-NEE 9-26 DAILY WITH it y of DLE U-100 1 00:00: MEALS [place] mL 31 gauge 00 Medical x 5/16 Syrg Branch amLODIPine 2021-0 Yes 5mg Take 1 [facility] 5 mg tablet 9-26 tablet by ity of 00:00: mouth in [place] the Medical morning. Branch INSULIN 2021-0 Yes USE TWICE Unive rs SYRINGE-NEE 9-26 DAILY WITH it y of DLE U-100 1 00:00: MEALS [place] mL 31 gauge 00 Medical x 5/16 Syrg Branch amLODIPine 2021-0 Yes 5mg Take 1 [facility] 5 mg tablet 9-26 tablet by ity of 00:00: mouth in [place] the Medical morning. Branch NITROGLYCER 2021-0 2021- No PLACE 1 Un ally IN 0.4 mg 9-26 10-24 TABLET ity of sublingual 00:00: 00:00 [place] tablet 00 :00 TONGUE Medical EVERY 5 Branch MINUTES NEEDED FOR CHEST PAIN. GABAPENTIN 2021-0 2021- No [id number] TAKE 1 [facility] 600 mg 9-26 10-21 TABLET BY ity of tablet 00:00: 00:00 MOUTH [place] 00 :00 THREE Medical TIMES Branch DAILY Motegrity 2 2021-0 Yes TAKE 1 Univ ers mg tab 9-25 TABLET BY ity of 00:00: MOUTH [place] 00 [facility]ILY [facility] mg tab 9-25 TABLET BY ity of 00:00: MOUTH DAILY MD [facility] Yes TAKE 1 Univ ers mg tab 9-25 TABLET BY ity of 00:00: MOUTH [facility] TA[facility] 1 Univ ers mg tab 9-25 TABLET BY ity of 00:00: MOUTH DAILY MD Liane olivier [facility] COLCHICINE 2021-0 Yes [id number] .6mg TAKE 1 U nivers 0.6 mg 9-19 TABLET BY ity of tablet 00:00: DAILY Medical Branch COLCHICINE 2021-0 Yes [id number] .6mg TAKE 1 U nivers 0.6 mg 9-19 TABLET BY ity of tablet 00:00: DAILY Medical Branch COLCHICINE 2021-0 Yes [id number] .6mg TAKE 1 U nivers 0.6 mg 9-19 TABLET BY ity of tablet 00:00: MOUTH DAILY Medical Branch COLCHICINE 2021-0 Yes [id number] .6mg TAKE 1 U nivers 0.6 mg 9-19 TABLET BY ity of tablet 00:00: MOUTH DAILY Medical Branch COLCHICINE 2021-0 Yes [id number] .6mg TAKE 1 U nivers 0.6 mg 9-19 TABLET BY ity of tablet 00:00: DAILY Medical Branch COLCHICINE 2021-0 Yes [id number] .6mg TAKE 1 U nivers 0.6 mg 9-19 TABLET BY ity of tablet 00:00: [facility] DAILY Medical Branch COLCHICINE 2021-0 Yes [id number] .6mg TAKE 1 U nivers 0.6 mg 9-19 TABLET BY ity of tablet 00:00: [facility] DAILY Medical Branch COLCHICINE 2-0 Yes [id number] .6mg TAKE 1 U nivers 0.6 mg 9-19 TABLET BY ity of tablet 00:00: [facility] DAILY Medical Branch COLCHICINE 2021-0 Yes [id number] .6mg TAKE 1 U nivers 0.6 mg 9-19 TABLET BY ity of tablet 00:00: [facility] DAILY Medical Branch COLCHICINE 2-0 Yes [id number] .6mg TAKE 1 U nivers 0.6 mg 9-19 TABLET BY ity of tablet 00:00: MOUTH DAILY Medical Branch COLCHICINE 2022-0 Yes [id number] .6mg TAKE 1 U nivers 0.6 mg 9-19 TABLET BY ity of tablet 00:00: MOUTH DAILY Medical Branch COLCHICINE 2022-0 Yes [id number] .6mg TAKE 1 U nivers 0.6 mg 9-19 TABLET BY ity of tablet 00:00: MOUTH DAILY Medical Branch COLCHICINE 2022-0 Yes [id number] .6mg TAKE 1 U nivers 0.6 mg 9-19 TABLET BY ity of tablet 00:00: MOUTH DAILY Medical Branch COLCHICINE 2022-0 Yes [id number] .6mg TAKE 1 U nivers 0.6 mg 9-19 TABLET BY ity of tablet 00:00: [facility] DAILY Medical Branch COLCHICINE 2022-0 Yes [id number] .6mg TAKE 1 U nivers 0.6 mg 9-19 TABLET BY ity of tablet 00:00: [facility] DAILY Medical Branch COLCHICINE 2022-0 Yes [id number] .6mg TAKE 1 U nivers 0.6 mg 9-19 TABLET BY ity of tablet 00:00: [facility] DAILY Medical Branch COLCHICINE 2022-0 Yes [id number] .6mg TAKE 1 U nivers 0.6 mg 9-19 TABLET BY ity of tablet 00:00: [facility] DAILY Medical Branch COLCHICINE 2022-0 Yes [id number] .6mg TAKE 1 U nivers 0.6 mg 9-19 TABLET BY ity of tablet 00:00: [facility] DAILY Medical Branch COLCHICINE 2022-0 Yes [id number] .6mg TAKE 1 U nivers 0.6 mg 9-19 TABLET BY ity of tablet 00:00: [facility] DAILY Medical Branch COLCHICINE 2022-0 Yes [id number] .6mg TAKE 1 U nivers 0.6 mg 9-19 TABLET BY ity of tablet 00:00: [facility] DAILY Medical Branch COLCHICINE 2022-0 Yes [id number] .6mg TAKE 1 U nivers 0.6 mg 9-19 TABLET BY ity of tablet 00:00: [facility] DAILY Medical Branch COLCHICINE 2022-0 Yes [id number] .6mg TAKE 1 U nivers 0.6 mg 9-19 TABLET BY ity of tablet 00:00: MOUTH [place] 00 DAILY Medical Branch COLCHICINE 2022-0 Yes [id number] .6mg TAKE 1 U nivers 0.6 mg 9-19 TABLET BY ity of tablet 00:00: MOUTH [place] DAILY Medical Branch COLCHICINE 2022-0 Yes [id number] .6mg TAKE 1 U nivers 0.6 mg 9-19 TABLET BY ity of tablet 00:00: MOUTH [place] DAILY Medical Branch COLCHICINE 2-0 Yes [id number] .6mg TAKE 1 U nivers 0.6 mg 9-19 TABLET BY ity of tablet 00:00: MOUTH [place] 00 DAILY Medical Branch COLCHICINE 2021-0 Yes [id number] .6mg TAKE 1 U nivers 0.6 mg 9-19 TABLET BY ity of tablet 00:00: MOUTH [place] DAILY Medical Branch COLCHICINE 2022-0 Yes [id number] .6mg TAKE 1 U nivers 0.6 mg 9-19 TABLET BY ity of tablet 00:00: MOUTH [place] DAILY Medical Branch COLCHICINE 2021-0 Yes [id number] .6mg TAKE 1 U nivers 0.6 mg 9-19 TABLET BY ity of tablet 00:00: MOUTH [place] 00 DAILY Medical Branch COLCHICINE 2-0 Yes [id number] .6mg TAKE 1 U nivers 0.6 mg 9-19 TABLET BY ity of tablet 00:00: MOUTH [place] DAILY Medical Branch COLCHICINE 2-0 Yes [id number] .6mg TAKE 1 U nivers 0.6 mg 9-19 TABLET BY ity of tablet 00:00: [facility] 00 DAILY Medical Branch COLCHICINE 2-0 Yes [id number] .6mg TAKE 1 U nivers 0.6 mg 9-19 TABLET BY ity of tablet 00:00: MOUTH [place] 00 DAILY Medical Branch COLCHICINE 2022-0 2023- No [id number] .6mg TAKE 1 Univers 0.6 mg 9-19 [...] for Pain. Indication s: chronic pain HYDRALAZINE 2021-0 Yes [id number] TAKE 1 [facility] 100 mg 9-06 TABLET BY ity of tablet 00:00: MOUTH [place] 00 THREE Medical TIMES Branch DAILY HYDRALAZINE 2021-0 Yes [id number] TAKE 1 [facility] 100 mg 9-06 TABLET BY ity of tablet 00:00: MOUTH [place] 00 THREE Medical TIMES Branch DAILY HYDRALAZINE 2021-0 Yes [id number] TAKE 1 [facility] 100 mg 9-06 TABLET BY ity of tablet 00:00: MOUTH [place] 00 THREE Medical TIMES Branch DAILY HYDRALAZINE 2022-0 Yes [id number] TAKE 1 [facility] 100 mg 9-06 TABLET BY ity of tablet 00:00: MOUTH [place] 00 THREE Medical TIMES Branch DAILY HYDRALAZINE 2022-0 Yes [id number] TAKE 1 [facility] 100 mg 9-06 TABLET BY ity of tablet 00:00: MOUTH [place] 00 THREE Medical TIMES Branch DAILY HYDRALAZINE 2-0 Yes [id number] TAKE 1 [facility] 100 mg 9-06 TABLET BY ity of tablet 00:00: MOUTH [place] 00 THREE Medical TIMES Branch DAILY HYDRALAZINE 2022-0 2022- No [id number] TAKE 1 [facility] 100 mg 9-06 10-05 TABLET BY ity of tablet 00:00: 00:00 MOUTH [place] 00 :00 THREE Medical TIMES Branch DAILY GABAPENTIN 2-0 Yes [id number] TAKE 1 [facility] 600 mg 8-31 TABLET BY ity of tablet 00:00: MOUTH [place] 00 THREE Medical TIMES Branch DAILY GABAPENTIN 2-0 Yes [id number] TAKE 1 [facility] 600 mg 8-31 TABLET BY ity of tablet 00:00: MOUTH [place] 00 THREE Medical TIMES Branch DAILY GABAPENTIN 2022-0 Yes [id number] TAKE 1 Univers 600 mg 8-31 TABLET BY ity of tablet 00:00: MOUTH [place] 00 THREE Medical TIMES Branch DAILY GABAPENTIN 2022-0 Yes [id number] TAKE 1 [facility] 600 mg 8-31 TABLET BY ity of tablet 00:00: MOUTH [place] 00 THREE Medical TIMES Branch DAILY GABAPENTIN 2022-0 2022- No [id number] TAKE 1 Univers 600 mg 8-31 - TABLET BY ity of tablet 00:00: 00:00 MOUTH [place] 00 :00 THREE Medical TIMES Branch DAILY METOPROLOL 2022-0 [...] tablet 00 :00 TWICE Medical DAILY Branch LISINOPRIL Yes [id number] TAKE 1/2 Univers 40 mg 8-08 TABLET [...] for Pain. Indication s: chronic pain LISINOPRIL Yes [id number] TAKE 1/2 [facility] 40 mg 8-08 TABLET BY ity of tablet 00:00: MOUTH [place] 00 TWICE Medical DAILY Branch HYDROcodone 0 Yes [id number] 1{tbl} Take 1 Un ally -acetaminop 8-08 tablet by ity of hen 7.5-325 00:00: mouth [place] mg per 00 every 6 Medical tablet (six) Branch hours as needed for Pain. Indication s: chronic pain LISINOPRIL 2021-0 Yes [id number] TAKE 1/2 [facility] 40 mg 8-08 TABLET BY ity of tablet 00:00: MOUTH [place] 00 TWICE Medical DAILY Branch HYDROcodone 2021-0 Yes [id number] 1{tbl} Take 1 Un ally -acetaminop 8-08 tablet by ity of hen 7.5-325 00:00: mouth [place] mg per 00 every 6 Medical tablet (six) Branch hours as needed for Pain. Indication s: chronic pain LISINOPRIL 2022-0 Yes [id number] TAKE 1/2 [facility] 40 mg 8-08 TABLET BY ity of tablet 00:00: MOUTH 00 TWICE Medical DAILY Branch LISINOPRIL 2022-0 Yes [id number] TAKE 1/2 [facility] 40 mg 8-08 TABLET BY ity of tablet 00:00: MOUTH 00 TWICE Medical DAILY Branch LISINOPRIL 2022-0 Yes [id number] TAKE 1/2 [facility] 40 mg 8-08 TABLET BY ity of tablet 00:00: MOUTH 00 TWICE Medical DAILY Branch LISINOPRIL 2022-0 Yes [id number] TAKE 1/2 Univers 40 mg 8-08 TABLET BY ity of tablet 00:00: MOUTH TWICE Medical DAILY Branch LISINOPRIL 2-0 Yes [id number] TAKE 1/2 Univers 40 mg 8-08 TABLET BY ity of tablet 00:00: MOUTH TWICE Medical DAILY Branch LISINOPRIL 2-0 Yes [id number] TAKE 1/2 [facility] 40 mg 8-08 TABLET BY ity of tablet 00:00: MOUTH TWICE Medical DAILY Branch LISINOPRIL 2022-0 Yes [id number] TAKE 1/2 Univers 40 mg 8-08 TABLET BY ity of tablet 00:00: MOUTH TWICE Medical DAILY Branch LISINOPRIL 2-0 Yes [id number] TAKE 1/2 Univers 40 mg 8-08 TABLET BY ity of tablet 00:00: MOUTH TWICE Medical DAILY Branch LISINOPRIL 2022-0 Yes [id number] TAKE 1/2 Univers 40 mg 8-08 TABLET BY ity of tablet 00:00: MOUTH TWICE Medical DAILY Branch LISINOPRIL 2022-0 Yes [id number] TAKE 1/2 Univers 40 mg 8-08 TABLET BY ity of tablet 00:00: MOUTH TWICE Medical DAILY Branch LISINOPRIL 2022-0 Yes [id number] TAKE 1/2 Univers 40 mg 8-08 TABLET BY ity of tablet 00:00: MOUTH 00 TWICE Medical DAILY Branch LISINOPRIL 2022-0 Yes [id number] TAKE 1/2 [facility] 40 mg 8-08 TABLET BY ity of tablet 00:00: MOUTH 00 TWICE Medical DAILY Branch LISINOPRIL 2022-0 Yes [id number] TAKE 1/2 [facility] 40 mg 8-08 TABLET BY ity of tablet 00:00: MOUTH 00 TWICE Medical DAILY Branch LISINOPRIL 0 Yes [id number] TAKE 1/2 [facility] 40 mg 8-08 TABLET BY ity of tablet 00:00: MOUTH [place] 00 TWICE Medical DAILY Branch LISINOPRIL 0 Yes [id number] TAKE 1/2 Univers 40 mg 8-08 TABLET BY ity of tablet 00:00: MOUTH 00 TWICE Medical DAILY Branch LISINOPRIL 0 Yes [id number] TAKE 1/2 [facility] 40 mg 8-08 TABLET BY ity of tablet 00:00: MOUTH [place] 00 TWICE Medical DAILY Branch LISINOPRIL 0 Yes [id number] TAKE 1/2 Univers 40 mg 8-08 TABLET BY ity of tablet 00:00: MOUTH 00 TWICE Medical DAILY Branch LISINOPRIL 0 2021- No [id number] TAKE 1/2 [facility] 40 mg 8-08 11-03 TABLET BY ity of tablet 00:00: 00:00 MOUTH [place] 00 :00 TWICE Medical DAILY Branch HYDROcodone 2021- No [id number] 1{tbl} Take 1 U nivers -acetaminop 8-08 09-08 tablet by it y of hen 7.5-325 00:00: 00:00 [place] mg per 00 :00 every 6 Medical tablet (six) Branch hours as needed for Pain. Indication s: chronic pain HUMULIN Yes [id number] ADMINISTER Univers 70/30 U-100 8-03 70 UNITS ity of INSULIN 100 00:00: [place] unit/mL 00 SKIN EVERY Medica l (70-30) MORNING Branch suspension THEN ADMINISTER 60 UNITS UNDER THE SKIN EVERY EVENING HUMULIN Yes [id number] ADMINISTER Univers 70/30 U-100 8-03 70 UNITS ity of INSULIN 100 00:00: [place] unit/mL 00 SKIN EVERY Medica l (70-30) MORNING Branch suspension THEN ADMINISTER 60 UNITS UNDER THE SKIN EVERY EVENING GABAPENTIN Yes [id number] TAKE 1 [facility] 600 mg 8-03 TABLET BY ity of tablet 00:00: MOUTH [place] 00 THREE Medical TIMES Branch DAILY HUMULIN Yes [id number] ADMINISTER Univers 70/30 U-100 8-03 70 UNITS ity of INSULIN 100 00:00: [place] unit/mL 00 SKIN EVERY Medica l (70-30) MORNING Branch suspension THEN ADMINISTER 60 UNITS UNDER THE SKIN EVERY EVENING GABAPENTIN Yes [id number] TAKE 1 [facility] 600 mg 8-03 TABLET BY ity of tablet 00:00: MOUTH THREE Medical TIMES Branch DAILY HUMULIN Yes [id number] ADMINISTER Univers 70/30 U-100 8-03 70 UNITS ity of INSULIN 100 00:00: [place] unit/mL 00 SKIN EVERY Medica l (70-30) MORNING Branch suspension THEN ADMINISTER 60 UNITS UNDER THE SKIN EVERY EVENING GABAPENTIN Yes [id number] TAKE 1 [facility] 600 mg 8-03 TABLET BY ity of tablet 00:00: MOUTH Medical TIMES Branch DAILY HUMULIN Yes [id number] ADMINISTER Univers 70/30 U-100 8-03 70 UNITS ity of INSULIN 100 00:00: [place] unit/mL 00 SKIN EVERY Medica l (70-30) MORNING Branch suspension THEN ADMINISTER 60 UNITS UNDER THE SKIN EVERY EVENING GABAPENTIN Yes [id number] TAKE 1 [facility] 600 mg 8-03 TABLET BY ity of tablet 00:00: MOUTH Medical TIMES Branch DAILY HUMULIN Yes [id number] ADMINISTER Univers 70/30 U-100 8-03 70 UNITS ity of INSULIN 100 00:00: [place] unit/mL 00 SKIN EVERY Medica l (70-30) MORNING Branch suspension THEN ADMINISTER 60 UNITS UNDER THE SKIN EVERY EVENING HUMULIN Yes [id number] ADMINISTER Univers 70/30 U-100 8-03 70 UNITS ity of INSULIN 100 00:00: [place] unit/mL 00 SKIN EVERY Medica l (70-30) MORNING Branch suspension THEN ADMINISTER 60 UNITS UNDER THE SKIN EVERY EVENING HUMULIN Yes [id number] ADMINISTER Univers 70/30 U-100 8-03 70 UNITS ity of INSULIN 100 00:00: [place] unit/mL 00 SKIN EVERY Medica l (70-30) MORNING Branch suspension THEN ADMINISTER 60 UNITS UNDER THE SKIN EVERY EVENING HUMULIN Yes [id number] ADMINISTER Univers 70/30 U-100 8-03 70 UNITS ity of INSULIN 100 00:00: [place] unit/mL 00 SKIN EVERY Medica l (70-30) MORNING Branch suspension THEN ADMINISTER 60 UNITS UNDER THE SKIN EVERY EVENING HUMULIN Yes [id number] ADMINISTER Univers 70/30 U-100 8-03 70 UNITS ity of INSULIN 100 00:00: [place] unit/mL 00 SKIN EVERY Medica l (70-30) MORNING Branch suspension THEN ADMINISTER 60 UNITS UNDER THE SKIN EVERY EVENING HUMULIN Yes [id number] ADMINISTER Univers 70/30 U-100 8-03 70 UNITS ity of INSULIN 100 00:00: [place] unit/mL 00 SKIN EVERY Medica l (70-30) MORNING Branch suspension THEN ADMINISTER 60 UNITS UNDER THE SKIN EVERY EVENING HUMULIN Yes [id number] ADMINISTER Univers 70/30 U-100 8-03 70 UNITS ity of INSULIN 100 00:00: [place] unit/mL 00 SKIN EVERY Medica l (70-30) MORNING Branch suspension THEN ADMINISTER 60 UNITS UNDER THE SKIN EVERY EVENING HUMULIN Yes [id number] ADMINISTER Univers 70/30 U-100 8-03 70 UNITS ity of INSULIN 100 00:00: [place] unit/mL 00 SKIN EVERY Medica l (70-30) MORNING Branch suspension THEN ADMINISTER 60 UNITS UNDER THE SKIN EVERY EVENING HUMULIN Yes [id number] ADMINISTER Univers 70/30 U-100 8-03 70 UNITS ity of INSULIN 100 00:00: UND[place] unit/mL 00 SKIN EVERY Medica l (70-30) MORNING Branch suspension THEN ADMINISTER 60 UNITS UNDER THE SKIN EVERY EVENING HUMULIN Yes [id number] ADMINISTER Univers 70/30 U-100 8-03 70 UNITS ity of INSULIN 100 00:00: UNDER [place] unit/mL 00 SKIN EVERY Medica l (70-30) MORNING Branch suspension THEN ADMINISTER 60 UNITS UNDER THE SKIN EVERY EVENING HUMULIN Yes [id number] ADMINISTER Univers 70/30 U-100 8-03 70 UNITS ity of INSULIN 100 00:00: UND[place] unit/mL 00 SKIN EVERY Medica l (70-30) MORNING Branch suspension THEN ADMINISTER 60 UNITS UNDER THE SKIN EVERY EVENING HUMULIN Yes [id number] ADMINISTER Univers 70/30 U-100 8-03 70 UNITS ity of INSULIN 100 00:00: UND[place] unit/mL 00 SKIN EVERY Medica l (70-30) MORNING Branch suspension THEN ADMINISTER 60 UNITS UNDER THE SKIN EVERY EVENING HUMULIN Yes [id number] ADMINISTER Univers 70/30 U-100 8-03 70 UNITS ity of INSULIN 100 00:00: UND[place] unit/mL 00 SKIN EVERY Medica l (70-30) MORNING Branch suspension THEN ADMINISTER 60 UNITS UNDER THE SKIN EVERY EVENING HUMULIN Yes [id number] ADMINISTER Univers 70/30 U-100 8-03 70 UNITS ity of INSULIN 100 00:00: UND[place] THE [place] unit/mL 00 SKIN EVERY Medica l (70-30) MORNING Branch suspension THEN ADMINISTER 60 UNITS UNDER THE SKIN EVERY EVENING HUMULIN Yes [id number] ADMINISTER Univers 70/30 U-100 8-03 70 UNITS ity of INSULIN 100 00:00: UND[place] THE [place] unit/mL 00 SKIN EVERY Medica l (70-30) MORNING Branch suspension THEN ADMINISTER 60 UNITS UNDER THE SKIN EVERY EVENING HUMULIN Yes [id number] ADMINISTER Univers 70/30 U-100 8-03 70 UNITS ity of INSULIN 100 00:00: UND[place] THE [place] unit/mL 00 SKIN EVERY Medica l (70-30) MORNING Branch suspension THEN ADMINISTER 60 UNITS UNDER THE SKIN EVERY EVENING HUMULIN Yes [id number] ADMINISTER Univers 70/30 U-100 8-03 70 UNITS ity of INSULIN 100 00:00: UNDER THE [place] unit/mL 00 SKIN EVERY Medica l (70-30) MORNING Branch suspension THEN ADMINISTER 60 UNITS UNDER THE SKIN EVERY EVENING HUMULIN Yes [id number] ADMINISTER Univers 70/30 U-100 8-03 70 UNITS ity of INSULIN 100 00:00: UNDER THE [place] unit/mL 00 SKIN EVERY Medica l (70-30) MORNING Branch suspension THEN ADMINISTER 60 UNITS UNDER THE SKIN EVERY EVENING HUMULIN Yes [id number] ADMINISTER Univers 70/30 U-100 8-03 70 UNITS ity of INSULIN 100 00:00: UNDER THE [place] unit/mL 00 SKIN EVERY Medica l (70-30) MORNING Branch suspension THEN ADMINISTER 60 UNITS UNDER THE SKIN EVERY EVENING HUMULIN Yes [id number] ADMINISTER Univers 70/30 U-100 8-03 70 UNITS ity of INSULIN 100 00:00: UNDER THE [place] unit/mL 00 SKIN EVERY Medica l (70-30) MORNING Branch suspension THEN ADMINISTER 60 UNITS UNDER THE SKIN EVERY EVENING HUMULIN Yes [id number] ADMINISTER Univers 70/30 U-100 8-03 70 UNITS ity of INSULIN 100 00:00: UNDER THE [place] unit/mL 00 SKIN EVERY Medica l (70-30) MORNING Branch suspension THEN ADMINISTER 60 UNITS UNDER THE SKIN EVERY EVENING HUMULIN Yes [id number] ADMINISTER Univers 70/30 U-100 8-03 70 UNITS ity of INSULIN 100 00:00: UNDER THE [place] unit/mL 00 SKIN EVERY Medica l (70-30) MORNING Branch suspension THEN ADMINISTER 60 UNITS UNDER THE SKIN EVERY EVENING HUMULIN Yes [id number] ADMINISTER Univers 70/30 U-100 8-03 70 UNITS ity of INSULIN 100 00:00: UNDER THE [place] unit/mL 00 SKIN EVERY Medica l (70-30) MORNING Branch suspension THEN ADMINISTER 60 UNITS UNDER THE SKIN EVERY EVENING HUMULIN Yes [id number] ADMINISTER Univers 70/30 U-100 8- 70 UNITS ity of INSULIN 100 00:00: UNDER THE [place] unit/mL 00 SKIN EVERY Medica l (70-30) MORNING Branch suspension THEN ADMINISTER 60 UNITS UNDER THE SKIN EVERY EVENING HUMULIN Yes [id number] ADMINISTER Univers 70/30 U-100 8-03 70 UNITS ity of INSULIN 100 00:00: UNDER THE [place] unit/mL 00 SKIN EVERY Medica l (70-30) MORNING Branch suspension THEN ADMINISTER 60 UNITS UNDER THE SKIN EVERY EVENING HUMULIN Yes [id number] ADMINISTER Univers 70/30 U-100 8-03 70 UNITS ity of INSULIN 100 00:00: UNDER THE [place] unit/mL 00 SKIN EVERY Medica l (70-30) MORNING Branch suspension THEN ADMINISTER 60 UNITS UNDER THE SKIN EVERY EVENING HUMULIN Yes [id number] ADMINISTER Univers 70/30 U-100 8-03 70 UNITS ity of INSULIN 100 00:00: UNDER THE [place] unit/mL 00 SKIN EVERY Medica l (70-30) MORNING Branch suspension THEN ADMINISTER 60 UNITS UNDER THE SKIN EVERY EVENING HUMULIN Yes [id number] ADMINISTER Univers 70/30 U-100 8-03 70 UNITS ity of INSULIN 100 00:00: UNDER THE [place] unit/mL 00 SKIN EVERY Medica l (70-30) MORNING Branch suspension THEN ADMINISTER 60 UNITS UNDER THE SKIN EVERY EVENING HUMULIN Yes [id number] ADMINISTER Univers 70/30 U-100 8-03 70 UNITS ity of INSULIN 100 00:00: UNDER THE [place] unit/mL 00 SKIN EVERY Medica l (70-30) MORNING Branch suspension THEN ADMINISTER 60 UNITS UNDER THE SKIN EVERY EVENING HUMULIN Yes [id number] ADMINISTER Univers 70/30 U-100 8-03 70 UNITS ity of INSULIN 100 00:00: UNDER THE [place] unit/mL 00 SKIN EVERY Medica l (70-30) MORNING Branch suspension THEN ADMINISTER 60 UNITS UNDER THE SKIN EVERY EVENING HUMULIN Yes [id number] ADMINISTER Univers 70/30 U-100 8- 70 UNITS ity of INSULIN 100 00:00: UNDER THE [place] unit/mL 00 SKIN EVERY Medica l (70-30) MORNING Branch suspension THEN ADMINISTER 60 UNITS UNDER THE SKIN EVERY EVENING HUMULIN Yes [id number] ADMINISTER Univers 70/30 U-100 8- 70 UNITS ity of INSULIN 100 00:00: UNDER THE [place] unit/mL 00 SKIN EVERY Medica l (70-30) MORNING Branch suspension THEN ADMINISTER 60 UNITS UNDER THE SKIN EVERY EVENING HUMULIN Yes [id number] ADMINISTER [facility] 70/30 U-100 8- 70 UNITS ity of INSULIN 100 00:00: UNDER THE [place] unit/mL 00 SKIN EVERY Medica l (70-30) MORNING Branch suspension THEN ADMINISTER 60 UNITS UNDER THE SKIN EVERY EVENING HUMULIN Yes [id number] ADMINISTER Univers 70/30 U-100 8-03 70 UNITS ity of INSULIN 100 00:00: UNDER THE [place] unit/mL 00 SKIN EVERY Medica l (70-30) MORNING Branch suspension THEN ADMINISTER 60 UNITS UNDER THE SKIN EVERY EVENING HUMULIN Yes [id number] ADMINISTER Univers 70/30 U-100 8-03 70 UNITS ity of INSULIN 100 00:00: UNDER THE [place] unit/mL 00 SKIN EVERY Medica l (70-30) MORNING Branch suspension THEN ADMINISTER 60 UNITS UNDER THE SKIN EVERY EVENING HUMULIN Yes [id number] ADMINISTER Univers 70/30 U-100 8-03 70 UNITS ity of INSULIN 100 00:00: UNDER THE [place] unit/mL 00 SKIN EVERY Medica l (70-30) MORNING Branch suspension THEN ADMINISTER 60 UNITS UNDER THE SKIN EVERY EVENING HUMULIN Yes [id number] ADMINISTER Univers 70/30 U-100 8-03 70 UNITS ity of INSULIN 100 00:00: UNDER THE [place] unit/mL 00 SKIN EVERY Medica l (70-30) MORNING Branch suspension THEN ADMINISTER 60 UNITS UNDER THE SKIN EVERY EVENING HUMULIN Yes [id number] ADMINISTER [facility] 70/30 U-100 8- 70 UNITS ity of INSULIN 100 00:00: UNDER THE [place] unit/mL 00 SKIN EVERY Medica l (70-30) MORNING Branch suspension THEN ADMINISTER 60 UNITS UNDER THE SKIN EVERY EVENING HUMULIN Yes [id number] ADMINISTER [facility] 70/30 U-100 8- 70 UNITS ity of INSULIN 100 00:00: UNDER THE [place] unit/mL 00 SKIN EVERY Medica l (70-30) MORNING Branch suspension THEN ADMINISTER 60 UNITS UNDER THE SKIN EVERY EVENING HUMULIN Yes [id number] ADMINISTER [facility] 70/30 U-100 8- 70 UNITS ity of INSULIN 100 00:00: UNDER THE [place] unit/mL 00 SKIN EVERY Medica l (70-30) MORNING Branch suspension THEN ADMINISTER 60 UNITS UNDER THE SKIN EVERY EVENING HUMULIN Yes [id number] ADMINISTER [facility] 70/30 U-100 8- 70 UNITS ity of INSULIN 100 00:00: UNDER THE [place] unit/mL 00 SKIN EVERY Medica l (70-30) MORNING Branch suspension THEN ADMINISTER 60 UNITS UNDER THE SKIN EVERY EVENING HUMULIN Yes [id number] ADMINISTER [facility] 70/30 U-100 06-03 70 UNITS ity of INSULIN 100 00:00: UNDER THE [place] unit/mL 00 SKIN EVERY Medica l (70-30) MORNING Branch suspension THEN ADMINISTER 60 UNITS UNDER THE SKIN EVERY EVENING HUMULIN Yes [id number] ADMINISTER [facility] 70/30 U-100 8- 70 UNITS ity of INSULIN 100 00:00: UNDER THE [place] unit/mL 00 SKIN EVERY Medica l (70-30) MORNING Branch suspension THEN ADMINISTER 60 UNITS UNDER THE SKIN EVERY EVENING GABAPENTIN 2021- No [id number] TAKE 1 [facility] 600 mg 06-03 TABLET BY ity of tablet 00:00: 00:00 MOUTH [place] 00 :00 THREE Medical TIMES Branch DAILY HYDROCHLORO 2022-0 Yes [id number] 12.5mg TAKE 1 [facility] THIAZIDE 7-18 CAPSULE BY ity o f 12.5 mg 00:00: MOUTH [place] capsule 00 DAILY Medical Branch HYDROCHLORO 2022-0 Yes [id number] 12.5mg TAKE 1 [facility] THIAZIDE 7-18 CAPSULE BY ity o f 12.5 mg 00:00: MOUTH [place] capsule 00 DAILY Medical Branch HYDROCHLORO 2022-0 Yes [id number] 12.5mg TAKE 1 [facility] THIAZIDE 7-18 CAPSULE BY ity o f 12.5 mg 00:00: MOUTH [place] capsule 00 DAILY Medical Branch HYDROCHLORO 2022-0 Yes [id number] 12.5mg TAKE 1 [facility] THIAZIDE 7-18 CAPSULE BY ity o f 12.5 mg 00:00: MOUTH [place] capsule 00 DAILY Medical Branch HYDROCHLORO 2022-0 Yes [id number] 12.5mg TAKE 1 [facility] THIAZIDE 7-18 CAPSULE BY ity o f 12.5 mg 00:00: MOUTH [place] capsule 00 DAILY Medical Branch HYDROCHLORO 2022-0 Yes [id number] 12.5mg TAKE 1 [facility] THIAZIDE 7-18 CAPSULE BY ity o f 12.5 mg 00:00: MOUTH [place] capsule 00 DAILY Medical Branch HYDROCHLORO 2022-0 Yes [id number] 12.5mg TAKE 1 [facility] THIAZIDE 7-18 CAPSULE BY ity o f 12.5 mg 00:00: MOUTH [place] capsule 00 DAILY Medical Branch HYDROCHLORO 2022-0 Yes [id number] 12.5mg TAKE 1 [facility] THIAZIDE 7-18 CAPSULE BY ity o f 12.5 mg 00:00: MOUTH [place] capsule 00 DAILY Medical Branch HYDROCHLORO 2022-0 Yes [id number] 12.5mg TAKE 1 [facility] THIAZIDE 7-18 CAPSULE BY ity o f 12.5 mg 00:00: MOUTH [place] capsule 00 DAILY [facility] HYDROCHLORO 2022-0 Yes [id number] 12.5mg TAKE 1 [facility] THIAZIDE 7-18 CAPSULE BY ity o f 12.5 mg 00:00: MOUTH [place] capsule 00 DAILY [facility] HYDROCHLORO 2022-0 Yes [id number] 12.5mg TAKE 1 [facility] THIAZIDE 7-18 CAPSULE BY it[facility] o f 12.5 mg 00:00: MOUTH [place] capsule 00 DAILY [facility] HYDROCHLORO 2022-0 Yes [id number] 12.5mg TAKE 1 [facility] THIAZIDE 7-18 CAPSULE BY [facility] o f 12.5 mg 00:00: MOUTH [place] capsule 00 DAILY [facility] HYDROCHLORO 2022-0 Yes [id number] 12.5mg TAKE 1 [facility] THIAZIDE 7-18 CAPSULE BY ity o f 12.5 mg 00:00: MOUTH [place] capsule 00 DAILY [facility] HYDROCHLORO 2022-0 Yes [id number] 12.5mg TAKE 1 [facility] THIAZIDE 7-18 CAPSULE BY ity o f 12.5 mg 00:00: MOUTH [place] capsule 00 DAILY [facility] HYDROCHLORO 2022-0 Yes [id number] 12.5mg TAKE 1 [facility] THIAZIDE 7-18 CAPSULE BY ity o f 12.5 mg 00:00: MOUTH [place] capsule 00 DAILY [facility] HYDROCHLORO 2022-0 Yes [id number] 12.5mg TAKE 1 [facility] THIAZIDE 7-18 CAPSULE BY ity o f 12.5 mg 00:00: MOUTH [place] capsule 00 DAILY [facility] HYDROCHLORO 2022-0 Yes [id number] 12.5mg TAKE 1 [facility] THIAZIDE 7-18 CAPSULE BY ity o f 12.5 mg 00:00: MOUTH [place] capsule 00 DAILY [facility] HYDROCHLORO 2022-0 Yes [id number] 12.5mg TAKE 1 [facility] THIAZIDE 7-18 CAPSULE BY ity o f 12.5 mg 00:00: MOUTH [place] capsule 00 DAILY [facility] HYDROCHLORO 2022-0 Yes [id number] 12.5mg TAKE 1 [facility] THIAZIDE 7-18 CAPSULE BY ity o f 12.5 mg 00:00: MOUTH [place] capsule 00 DAILY [facility] HYDROCHLORO 2022-0 Yes [id number] 12.5mg TAKE 1 [facility] THIAZIDE 7-18 CAPSULE BY ity o f 12.5 mg 00:00: MOUTH [place] capsule 00 DAILY [facility] HYDROCHLORO 2022-0 Yes [id number] 12.5mg TAKE 1 [facility] THIAZIDE 7-18 CAPSULE BY ity o f 12.5 mg 00:00: MOUTH [place] capsule 00 DAILY [facility] HYDROCHLORO 2022-0 Yes [id number] 12.5mg TAKE 1 [facility] THIAZIDE 7-18 CAPSULE BY ity o f 12.5 mg 00:00: MOUTH [place] capsule 00 DAILY [facility] HYDROCHLORO 2022-0 Yes [id number] 12.5mg TAKE 1 [facility] THIAZIDE 7-18 CAPSULE BY ity o f 12.5 mg 00:00: MOUTH [place] capsule 00 DAILY [facility] HYDROCHLORO 2022-0 Yes [id number] 12.5mg TAKE 1 [facility] THIAZIDE 7-18 CAPSULE BY ity o f 12.5 mg 00:00: MOUTH [place] capsule 00 DAILY [facility] HYDROCHLORO 2022-0 Yes [id number] 12.5mg TAKE 1 [facility] THIAZIDE 7-18 CAPSULE BY ity o f 12.5 mg 00:00: MOUTH [place] capsule 00 DAILY [facility] HYDROCHLORO 2022-0 Yes [id number] 12.5mg TAKE 1 [facility] THIAZIDE 7-18 CAPSULE BY ity o f 12.5 mg 00:00: MOUTH [place] capsule 00 DAILY [facility] HYDROCHLORO 2022-0 Yes [id number] 12.5mg TAKE 1 [facility] THIAZIDE 7-18 CAPSULE BY ity o f 12.5 mg 00:00: MOUTH [place] capsule 00 DAILY [facility] HYDROCHLORO 2022-0 Yes [id number] 12.5mg TAKE 1 [facility] THIAZIDE 7-18 CAPSULE BY ity o f 12.5 mg 00:00: MOUTH [place] capsule 00 DAILY [facility] HYDROCHLORO 2022-0 Yes [id number] 12.5mg TAKE 1 [facility] THIAZIDE 7-18 CAPSULE BY ity o f 12.5 mg 00:00: MOUTH [place] capsule 00 DAILY [facility] HYDROCHLORO 2022-0 Yes [id number] 12.5mg TAKE 1 [facility] THIAZIDE 7-18 CAPSULE BY ity o f 12.5 mg 00:00: MOUTH [place] capsule 00 DAILY [facility] HYDROCHLORO 2022-0 Yes [id number] 12.5mg TAKE 1 [facility] THIAZIDE 7-18 CAPSULE BY ity o f 12.5 mg 00:00: MOUTH [place] capsule 00 DAILY [facility] HYDROCHLORO 2022-0 Yes [id number] 12.5mg TAKE 1 [facility] THIAZIDE 7-18 CAPSULE BY ity o f 12.5 mg 00:00: MOUTH [place] capsule 00 DAILY [facility] HYDROCHLORO 2022-0 Yes [id number] 12.5mg TAKE 1 [facility] THIAZIDE 7-18 CAPSULE BY ity o f 12.5 mg 00:00: MOUTH [place] capsule 00 DAILY [facility] HYDROCHLORO 2022-0 Yes [id number] 12.5mg TAKE 1 [facility] THIAZIDE 7-18 CAPSULE BY ity o f 12.5 mg 00:00: MOUTH [place] capsule 00 DAILY [facility] HYDROCHLORO 2022-0 Yes [id number] 12.5mg TAKE 1 [facility] THIAZIDE 7-18 CAPSULE BY ity o f 12.5 mg 00:00: MOUTH [place] capsule 00 DAILY [facility] HYDROCHLORO 2021-0 Yes [id number] 12.5mg TAKE 1 [facility] THIAZIDE 7-18 CAPSULE BY ity o f 12.5 mg 00:00: MOUTH [place] capsule 00 DAILY [facility] HYDROCHLORO 2021-0 Yes [id number] 12.5mg TAKE 1 [facility] THIAZIDE 7-18 CAPSULE BY ity o f 12.5 mg 00:00: MOUTH [place] capsule 00 DAILY [facility] HYDROCHLORO 2021-0 2023- No [id number] 12.5mg TAKE 1 [facility] THIAZIDE 7-18 - CAPSULE BY ity of 12.5 mg 00:00: 00:00 MOUTH [place] capsule 00 :00 DAILY [facility] HYDROcodone 2021- Yes [id number] 1{tbl} Take 1 Un ally -acetaminop 7-11 tablet by ity of hen 7.5-325 00:00: mouth [place] mg per 00 every 6 Medical tablet (six) Branch hours as needed for Pain. Indication s: chronic pain HYDROcodone 2021- Yes [id number] 1{tbl} Take 1 [...] 1{tbl} Take 1 U nivers -acetaminop 6-13 07- tablet by it y of hen 7.5-325 [...] 100mg Take 1 [facility] vers tartrate 04-09 tablet by ity o f 100 mg 00:00: 00:00 mouth 2 [place] tablet 00 :00 (two) Medical times Branch daily. GABAPENTIN 2021-0 Yes [id number] TAKE 1 [facility] 600 mg 5-31 TABLET BY ity of tablet 00:00: MOUTH 00 THREE Medical TIMES Branch DAILY GABAPENTIN 2021-0 Yes [id number] TAKE 1 [facility] 600 mg 5-31 TABLET BY ity of tablet 00:00: MOUTH 00 THREE Medical TIMES Branch DAILY GABAPENTIN 2021-0 Yes [id number] TAKE 1 [facility] 600 mg 5-31 TABLET BY ity of tablet 00:00: MOUTH 00 THREE Medical TIMES Branch DAILY GABAPENTIN 2021-0 Yes [id number] TAKE 1 [facility] 600 mg 5-31 TABLET BY ity of tablet 00:00: MOUTH 00 THREE Medical TIMES Branch DAILY GABAPENTIN 2021-0 Yes [id number] TAKE 1 [facility] 600 mg 5-31 TABLET BY ity of tablet 00:00: MOUTH [place] 00 THREE Medical TIMES Branch DAILY lubiproston 0 2022- No TAKE 1 Uni vers e (AMITIZA) 03-31 CAPSULE BY i ty of 24 MCG 00:00: 00:00 MOUTH [place] capsule 00 :00 TWICE MD DAILY [facility] lubiproston 2022- No TAKE 1 Uni vers e (AMITIZA) 03-31 CAPSULE BY i ty of 24 MCG 00:00: 00:00 MOUTH [place] capsule 00 :00 TWICE MD DAILY [facility] lubiproston 2022- No TAKE 1 Uni vers e (AMITIZA) 03-31 CAPSULE BY i ty of 24 MCG 00:00: 00:00 MOUTH [place] capsule 00 :00 TWICE MD DAILY [facility] lubiproston 2022- No TAKE 1 Uni vers e (AMITIZA) 03-31 CAPSULE BY i ty of 24 MCG 00:00: 00:00 MOUTH [place] capsule 00 :00 TWICE MD DAILY [facility] GABAPENTIN 202- No [id number] TAKE 1 [facility] 600 mg -01 07- TABLET BY ity of tablet 00:00: 00:00 MOUTH [place] 00 :00 THREE Medical TIMES Branch DAILY Insulin 2022-0 Yes [id number] Use as [facility] vers Syringe-Nee 5-18 directed ity of dle U-100 1 00:00: [place] mL 31 x 00 Medical 3/8" Syrg Branch Insulin 2022-0 Yes [id number] Use as Uni vers Syringe-Nee 5-18 directed ity of dle U-100 1 00:00: [place] mL 31 x 00 Medical 3/8" Syrg Branch Insulin 2022-0 Yes [id number] Use as Uni vers Syringe-Nee 5-18 directed ity of dle U-100 1 00:00: [place] mL 31 x 00 Medical 3/8" Syrg Branch Insulin 2022-0 Yes [id number] Use as Uni vers Syringe-Nee 5-18 directed ity of dle U-100 1 00:00: [place] mL 31 x 00 Medical 3/8" Syrg Branch Insulin 2022-0 Yes [id number] Use as Uni vers Syringe-Nee 5-18 directed ity of dle U-100 1 00:00: [place] mL 31 x 00 Medical 3/8" Syrg Branch Insulin 2022-0 Yes [id number] Use as [facility] vers Syringe-Nee 5-18 directed ity of dle U-100 1 00:00: [place] mL 31 x 00 Medical 3/8" Syrg Branch Insulin 2022-0 Yes [id number] Use as [facility] vers Syringe-Nee 5-18 directed ity of dle U-100 1 00:00: [place] mL 31 x 00 Medical 3/8" Syrg Branch Insulin 2022-0 Yes [id number] Use as [facility] vers Syringe-Nee 5-18 directed ity of dle U-100 1 00:00: [place] mL 31 x 00 Medical 3/8" Syrg Branch Insulin 2022-0 Yes [id number] Use as [facility] vers Syringe-Nee 5-18 directed ity of dle U-100 1 00:00: [place] mL 31 x 00 Medical 3/8" Syrg Branch Insulin 2022-0 Yes [id number] Use as [facility] vers Syringe-Nee 5-18 directed ity of dle U-100 1 00:00: [place] mL 31 x 00 Medical 3/8" Syrg Branch Insulin 2022-0 Yes [id number] Use as [facility] vers Syringe-Nee 5-18 directed ity of dle U-100 1 00:00: [place] mL 31 x 00 Medical 3/8" Syrg Branch Insulin 2022-0 Yes [id number] Use as [facility] vers Syringe-Nee 5-18 directed ity of dle U-100 1 00:00: [place] mL 31 x 00 Medical 3/8" Syrg Branch Insulin 2022-0 Yes [id number] Use as [facility] vers Syringe-Nee 5-18 directed ity of dle U-100 1 00:00: [place] mL 31 x 00 Medical 3/8" Syrg Branch Insulin 2022-0 Yes [id number] Use as [facility] vers Syringe-Nee 5-18 directed ity of dle U-100 1 00:00: [place] mL 31 x 00 Medical 3/8" Syrg Branch Insulin 2022-0 Yes [id number] Use as [facility] vers Syringe-Nee 5-18 directed ity of dle U-100 1 00:00: [place] mL 31 x 00 Medical 3/8" Syrg Branch Insulin 2022-0 Yes [id number] Use as [facility] vers Syringe-Nee 5-18 directed ity of dle U-100 1 00:00: [place] mL 31 x 00 Medical 3/8" Syrg Branch Insulin 2022-0 Yes [id number] Use as [facility] vers Syringe-Nee 5-18 directed ity of dle U-100 1 00:00: [place] mL 31 x 00 Medical 3/8" Syrg Branch Insulin 2022-0 Yes [id number] Use as [facility] vers Syringe-Nee 5-18 directed ity of dle U-100 1 00:00: [place] mL 31 x 00 Medical 3/8" Syrg Branch Insulin 2022-0 Yes [id number] Use as Uni vers Syringe-Nee 5-18 directed ity of dle U-100 1 00:00: [place] mL 31 x 00 Medical 3/8" Syrg Branch Insulin 2022-0 Yes [id number] Use as Uni vers Syringe-Nee 5-18 directed ity of dle U-100 1 00:00: [place] mL 31 x 00 Medical 3/8" Syrg Branch Insulin 2022-0 Yes [id number] Use as [facility] vers Syringe-Nee 5-18 directed ity of dle U-100 1 00:00: [place] mL 31 x 00 Medical 3/8" Syrg Branch Insulin 2022-0 Yes [id number] Use as Uni vers Syringe-Nee 5-18 directed ity of dle U-100 1 00:00: [place] mL 31 x 00 Medical 3/8" Syrg Branch Insulin 2022-0 Yes [id number] Use as [facility] vers Syringe-Nee 5-18 directed ity of dle U-100 1 00:00: [place] mL 31 x 00 Medical 3/8" Syrg Branch Insulin 2022-0 Yes [id number] Use as Uni vers Syringe-Nee 5-18 directed ity of dle U-100 1 00:00: [place] mL 31 x 00 Medical 3/8" Syrg Branch Insulin 2022-0 Yes [id number] Use as Uni vers Syringe-Nee 5-18 directed ity of dle U-100 1 00:00: [place] mL 31 x 00 Medical 3/8" Syrg Branch Insulin 2022-0 Yes [id number] Use as Uni vers Syringe-Nee 5-18 directed ity of dle U-100 1 00:00: [place] mL 31 x 00 Medical 3/8" Syrg Branch Insulin 2022-0 Yes [id number] Use as Uni vers Syringe-Nee 5-18 directed ity of dle U-100 1 00:00: [place] mL 31 x 00 Medical 3/8" Syrg Branch Insulin 2022-0 Yes [id number] Use as [facility] vers Syringe-Nee 5-18 directed ity of dle U-100 1 00:00: [place] mL 31 x 00 Medical 3/8" Syrg Branch Insulin 2022-0 Yes [id number] Use as [facility] vers Syringe-Nee 5-18 directed ity of dle U-100 1 00:00: [place] mL 31 x 00 Medical 3/8" Syrg Branch Insulin 2022-0 Yes [id number] Use as [facility] vers Syringe-Nee 5-18 directed ity of dle U-100 1 00:00: [place] mL 31 x 00 Medical 3/8" Syrg Branch Insulin 2022-0 Yes [id number] Use as [facility] vers Syringe-Nee 5-18 directed ity of dle U-100 1 00:00: [place] mL 31 x 00 Medical 3/8" Syrg Branch Insulin 2022-0 Yes [id number] Use as Uni vers Syringe-Nee 5-18 directed ity of dle U-100 1 00:00: [place] mL 31 x 00 Medical 3/8" Syrg Branch Insulin 2022-0 Yes [id number] Use as [facility] vers Syringe-Nee 5-18 directed ity of dle U-100 1 00:00: [place] mL 31 x 00 Medical 3/8" Syrg Branch Insulin 2022-0 Yes [id number] Use as [facility] vers Syringe-Nee 5-18 directed ity of dle U-100 1 00:00: [place] mL 31 x 00 Medical 3/8" Syrg Branch Insulin 2022-0 Yes [id number] Use as Uni vers Syringe-Nee 5-18 directed ity of dle U-100 1 00:00: [place] mL 31 x 00 Medical 3/8" Syrg Branch Insulin 2022-0 Yes [id number] Use as Uni vers Syringe-Nee 5-18 directed ity of dle U-100 1 00:00: [place] mL 31 x 00 Medical 3/8" Syrg Branch Insulin 2022-0 Yes [id number] Use as [facility] vers Syringe-Nee 5-18 directed ity of dle U-100 1 00:00: [place] mL 31 x 00 Medical 3/8" Syrg Branch Insulin 2022-0 Yes [id number] Use as [facility] vers Syringe-Nee 5-18 directed ity of dle U-100 1 00:00: [place] mL 31 x 00 Medical 3/8" Syrg Branch Insulin 2022-0 Yes [id number] Use as [facility] vers Syringe-Nee 5-18 directed ity of dle U-100 1 00:00: [place] mL 31 x 00 Medical 3/8" Syrg Branch Insulin 2022-0 Yes [id number] Use as [facility] vers Syringe-Nee 5-18 directed ity of dle U-100 1 00:00: [place] mL 31 x 00 Medical 3/8" Syrg Branch Insulin 2022-0 Yes [id number] Use as Uni vers Syringe-Nee 5-18 directed ity of dle U-100 1 00:00: [place] mL 31 x 00 Medical 3/8" Syrg Branch Insulin 2022-0 Yes [id number] Use as Uni vers Syringe-Nee 5-18 directed ity of dle U-100 1 00:00: [place] mL 31 x 00 Medical 3/8" Syrg Branch Insulin 2022-0 Yes [id number] Use as Uni vers Syringe-Nee 5-18 directed ity of dle U-100 1 00:00: [place] mL 31 x 00 Medical 3/8" Syrg Branch Insulin 2022-0 Yes [id number] Use as Uni vers Syringe-Nee 5-18 directed ity of dle U-100 1 00:00: [place] mL 31 x 00 Medical 3/8" Syrg Branch Insulin 2022-0 Yes [id number] Use as Uni vers Syringe-Nee 5-18 directed ity of dle U-100 1 00:00: [place] mL 31 x 00 Medical 3/8" Syrg Branch Insulin 2022-0 Yes [id number] Use as Uni vers Syringe-Nee 5-18 directed ity of dle U-100 1 00:00: [place] mL 31 x 00 Medical 3/8" Syrg Branch Insulin 2022-0 Yes [id number] Use as Uni vers Syringe-Nee 5-18 directed ity of dle U-100 1 00:00: [place] mL 31 x 00 Medical 3/8" Syrg Branch Insulin 2022-0 Yes [id number] Use as Uni vers Syringe-Nee 5-18 directed ity of dle U-100 1 00:00: [place] mL 31 x 00 Medical 3/8" Syrg Branch Insulin 2022-0 Yes [id number] Use as Uni vers Syringe-Nee 5-18 directed ity of dle U-100 1 00:00: [place] mL 31 x 00 Medical 3/8" Syrg Branch Insulin 2022-0 Yes [id number] Use as Uni vers Syringe-Nee 5-18 directed ity of dle U-100 1 00:00: [place] mL 31 x 00 Medical 3/8" Syrg Branch Insulin 2022-0 Yes [id number] Use as [facility] vers Syringe-Nee 5-18 directed ity of dle U-100 1 00:00: [place] mL 31 x 00 Medical 3/8" Syrg Branch Insulin 2022-0 Yes [id number] Use as Uni vers Syringe-Nee 5-18 directed ity of dle U-100 1 00:00: [place] mL 31 x 00 Medical 3/8" Syrg Branch Insulin 2021-0 Yes [id number] Use as Uni vers Syringe-Nee 5-18 directed ity of dle U-100 1 00:00: [place] mL 31 x 00 Medical 38" Syrg Branch METFORMIN 2021-0 Yes [id number] TAKE 1 U nivers 1,000 mg 5-16 TABLET BY ity of tablet 00:00: MOUTH 00 TWICE Medical DAILY WITH Branch MEALS HYDRALAZINE 2021-0 Yes [id number] TAKE 1 [facility] 100 mg 5-16 TABLET BY ity of tablet 00:00: MOUTH THREE Medical TIMES Branch DAILY METFORMIN 2021-0 Yes [id number] TAKE 1 U nivers 1,000 mg 5-16 TABLET BY ity of tablet 00:00: MOUTH TWICE Medical DAILY WITH Branch MEALS HYDRALAZINE 2021-0 Yes [id number] TAKE 1 [facility] 100 mg 5-16 TABLET BY ity of tablet 00:00: MOUTH THREE Medical TIMES Branch DAILY METFORMIN 2021-0 Yes [id number] TAKE 1 U nivers 1,000 mg 5-16 TABLET BY ity of tablet 00:00: MOUTH TWICE Medical DAILY WITH Branch MEALS HYDRALAZINE 2021-0 Yes [id number] TAKE 1 [facility] 100 mg 5-16 TABLET BY ity of tablet 00:00: MOUTH THREE Medical TIMES Branch DAILY METFORMIN 2021-0 Yes [id number] TAKE 1 U nivers 1,000 mg 5-16 TABLET BY ity of tablet 00:00: MOUTH TWICE Medical DAILY WITH Branch MEALS HYDRALAZINE 2021-0 Yes [id number] TAKE 1 [facility] 100 mg 5-16 TABLET BY ity of tablet 00:00: MOUTH THREE Medical TIMES Branch DAILY METFORMIN 2-0 Yes [id number] TAKE 1 U nivers 1,000 mg 5-16 TABLET BY ity of tablet 00:00: MOUTH TWICE Medical DAILY WITH Branch MEALS HYDRALAZINE 2021-0 Yes [id number] TAKE 1 [facility] 100 mg 5-16 TABLET BY ity of tablet 00:00: MOUTH THREE Medical TIMES Branch DAILY METFORMIN 2-0 Yes [id number] TAKE 1 U nivers 1,000 mg 5-16 TABLET BY ity of tablet 00:00: MOUTH TWICE Medical DAILY WITH Branch MEALS HYDRALAZINE 2021-0 Yes [id number] TAKE 1 [facility] 100 mg 5-16 TABLET BY ity of tablet 00:00: MOUTH THREE Medical TIMES Branch DAILY METFORMIN 2022-0 Yes [id number] TAKE 1 U nivers 1,000 mg 5-16 TABLET BY ity of tablet 00:00: MOUTH TWICE Medical DAILY WITH Branch MEALS HYDRALAZINE 2-0 Yes [id number] TAKE 1 [facility] 100 mg 5-16 TABLET BY ity of tablet 00:00: MOUTH THREE Medical TIMES Branch DAILY METFORMIN 2-0 Yes [id number] TAKE 1 U nivers 1,000 mg 5-16 TABLET BY ity of tablet 00:00: MOUTH TWICE Medical DAILY WITH Branch MEALS HYDRALAZINE 2021-0 Yes [id number] TAKE 1 [facility] 100 mg 5-16 TABLET BY ity of tablet 00:00: MOUTH THREE Medical TIMES Branch DAILY METFORMIN 2-0 Yes [id number] TAKE 1 U nivers 1,000 mg 5-16 TABLET BY ity of tablet 00:00: TWICE Medical DAILY WITH Branch MEALS HYDRALAZINE 2021-0 Yes [id number] TAKE 1 [facility] 100 mg 5-16 TABLET BY ity of tablet 00:00: MOUTH THREE Medical TIMES Branch DAILY METFORMIN 2-0 Yes [id number] TAKE 1 U nivers 1,000 mg 5-16 TABLET BY ity of tablet 00:00: MOUTH TWICE Medical DAILY WITH Branch MEALS HYDRALAZINE 2-0 Yes [id number] TAKE 1 [facility] 100 mg 5-16 TABLET BY ity of tablet 00:00: MOUTH THREE Medical TIMES Branch DAILY METFORMIN 2-0 Yes [id number] TAKE 1 U nivers 1,000 mg 5-16 TABLET BY ity of tablet 00:00: MOUTH TWICE Medical DAILY WITH Branch MEALS HYDRALAZINE 2-0 Yes [id number] TAKE 1 [facility] 100 mg 5-16 TABLET BY ity of tablet 00:00: MOUTH THREE Medical TIMES Branch DAILY METFORMIN 2022-0 Yes [id number] TAKE 1 U nivers 1,000 mg 5-16 TABLET BY ity of tablet 00:00: MOUTH TWICE Medical DAILY WITH Branch MEALS METFORMIN 2022-0 Yes [id number] TAKE 1 U nivers 1,000 mg 5-16 TABLET BY ity of tablet 00:00: MOUTH TWICE Medical DAILY WITH Branch MEALS METFORMIN 2022-0 Yes [id number] TAKE 1 [facility]ivers 1,000 mg 5-16 TABLET BY ity of tablet 00:00: MOUTH 00 TWICE Medical DAILY WITH Branch MEALS METFORMIN 2022-0 Yes [id number] TAKE 1 U nivers 1,000 mg 5-16 TABLET BY ity of tablet 00:00: MOUTH 00 TWICE Medical DAILY WITH Branch MEALS METFORMIN 2022-0 Yes [id number] TAKE 1 U nivers 1,000 mg 5-16 TABLET BY ity of tablet 00:00: MOUTH TWICE Medical DAILY WITH Branch MEALS METFORMIN 2022-0 Yes [id number] TAKE 1 U nivers 1,000 mg 5-16 TABLET BY ity of tablet 00:00: MOUTH TWICE Medical DAILY WITH Branch MEALS METFORMIN 2022-0 Yes [id number] TAKE 1 U [facility]ivers 1,000 mg 5-16 TABLET BY ity of tablet 00:00: MOUTH TWICE Medical DAILY WITH Branch MEALS METFORMIN 2022-0 Yes [id number] TAKE 1 U nivers 1,000 mg 5-16 TABLET BY ity of tablet 00:00: MOUTH TWICE Medical DAILY WITH Branch MEALS METFORMIN 2022-0 Yes [id number] TAKE 1 [facility]ivers 1,000 mg 5-16 TABLET BY ity of tablet 00:00: MOUTH TWICE Medical DAILY WITH Branch MEALS METFORMIN 2022-0 Yes [id number] TAKE 1 [facility] 1,000 mg 5-16 TABLET BY ity of tablet 00:00: MOUTH TWICE Medical DAILY WITH Branch MEALS METFORMIN 2022-0 Yes [id number] TAKE 1 U nivers 1,000 mg 5-16 TABLET BY ity of tablet 00:00: MOUTH TWICE Medical DAILY WITH Branch MEALS METFORMIN 2022-0 Yes [id number] TAKE 1 U nivers 1,000 mg 5-16 TABLET BY ity of tablet 00:00: MOUTH 00 TWICE Medical DAILY WITH Branch MEALS METFORMIN 2022-0 Yes [id number] TAKE 1 U nivers 1,000 mg 5-16 TABLET BY ity of tablet 00:00: MOUTH 00 TWICE Medical DAILY WITH Branch MEALS METFORMIN 2022-0 Yes [id number] TAKE 1 [facility]ivers 1,000 mg 5-16 TABLET BY ity of tablet 00:00: MOUTH 00 TWICE Medical DAILY WITH Branch MEALS METFORMIN 2022-0 Yes [id number] TAKE 1 U nivers 1,000 mg 5-16 TABLET BY ity of tablet 00:00: MOUTH [place] 00 TWICE Medical DAILY WITH Branch MEALS METFORMIN 2022-0 Yes [id number] TAKE 1 U nivers 1,000 mg 5-16 TABLET BY ity of tablet 00:00: MOUTH [place] 00 TWICE Medical DAILY WITH Branch MEALS METFORMIN 2022-0 Yes [id number] TAKE 1 U nivers 1,000 mg 5-16 TABLET BY ity of tablet 00:00: MOUTH [place] 00 TWICE Medical DAILY WITH Branch MEALS METFORMIN 2022-0 Yes [id number] TAKE 1 U nivers 1,000 mg 5-16 TABLET BY ity of tablet 00:00: MOUTH [place] 00 TWICE Medical DAILY WITH Branch MEALS METFORMIN 2-0 Yes [id number] TAKE 1 U nivers 1,000 mg 5-16 TABLET BY ity of tablet 00:00: MOUTH [place] 00 TWICE Medical DAILY WITH Branch MEALS METFORMIN 2-0 Yes [id number] TAKE 1 U nivers 1,000 mg 5-16 TABLET BY ity of tablet 00:00: MOUTH [place] 00 TWICE Medical DAILY WITH Branch MEALS METFORMIN 2-0 Yes [id number] TAKE 1 U nivers 1,000 mg 5-16 TABLET BY ity of tablet 00:00: MOUTH [place] 00 TWICE Medical DAILY WITH Branch MEALS METFORMIN 2-0 Yes [id number] TAKE 1 U nivers 1,000 mg 5-16 TABLET BY ity of tablet 00:00: MOUTH [place] 00 TWICE Medical DAILY WITH Branch MEALS METFORMIN 2022-0 2022- No [id number] TAKE 1 [facility] 1,000 mg 5-16 11-21 TABLET BY ity o f tablet 00:00: 00:00 MOUTH [place] 00 :00 TWICE Medical DAILY WITH Branch MEALS METFORMIN 2022-0 2022- No [id number] TAKE 1 [facility] 1,000 mg 5-16 11-21 TABLET BY ity o f tablet 00:00: 00:00 MOUTH [place] 00 :00 TWICE Medical DAILY WITH Branch MEALS HYDRALAZINE 2-0 2022- No [id number] TAKE 1 [facility] 100 mg 5-16 09-06 TABLET BY ity of tablet 00:00: 00:00 MOUTH [place] 00 :00 THREE Medical TIMES Branch DAILY LISINOPRIL 2021-0 Yes [id number] TAKE 1/2 [facility] 40 mg 5-13 TABLET BY ity of tablet 00:00: MOUTH [place] 00 TWICE Medical DAILY Branch LISINOPRIL 2021-0 Yes [id number] TAKE 1/2 [facility] 40 mg 5-13 TABLET BY ity of tablet 00:00: MOUTH [place] 00 TWICE Medical DAILY Branch LISINOPRIL 2021-0 Yes [id number] TAKE 1/2 [facility] 40 mg 5-13 TABLET BY ity of tablet 00:00: MOUTH 00 TWICE Medical DAILY Branch LISINOPRIL 2021-0 Yes [id number] TAKE 1/2 [facility] 40 mg 5-13 TABLET BY ity of tablet 00:00: MOUTH [place] 00 TWICE Medical DAILY Branch LISINOPRIL 2021-0 Yes [id number] TAKE 1/2 [facility] 40 mg 5-13 TABLET BY ity of tablet 00:00: MOUTH 00 TWICE Medical DAILY Branch LISINOPRIL 2021-0 Yes [id number] TAKE 1/2 [facility] 40 mg 5-13 TABLET BY ity of tablet 00:00: MOUTH 00 TWICE Medical DAILY Branch LISINOPRIL 2021-0 Yes [id number] TAKE 1/2 [facility] 40 mg 5-13 TABLET BY ity of tablet 00:00: MOUTH 00 TWICE Medical DAILY Branch LISINOPRIL 2021-0 2021- No [id number] TAKE 1/2 [facility] 40 mg 5-13 08-08 TABLET BY ity of tablet 00:00: 00:00 MOUTH [place] 00 :00 TWICE Medical DAILY Branch LISINOPRIL 2021-0 2- No [id number] TAKE 1/2 [facility] 40 mg 5-13 08-08 TABLET BY ity of tablet 00:00: 00:00 MOUTH [place] 00 :00 TWICE Medical DAILY Branch HUMULIN 0 Yes [id number] ADMINISTER [facility] 70/30 U-100 5-11 70 UNITS ity of INSULIN 100 00:00: [place]ER THE [place] unit/mL 00 SKIN EVERY Medica l (70-30) MORNING Branch suspension THEN ADMINISTER 60 UNITS UNDER THE SKIN EVERY EVENING HUMULIN Yes [id number] ADMINISTER [facility] 70/30 U-100 5-11 70 UNITS ity of INSULIN 100 00:00: [place] THE [place] unit/mL 00 SKIN EVERY Medica l (70-30) MORNING Branch suspension THEN ADMINISTER 60 UNITS UNDER THE SKIN EVERY EVENING HUMULIN 0 Yes [id number] ADMINISTER [facility] 70/30 U-100 5-11 70 UNITS ity of INSULIN 100 00:00: [place] THE [place] unit/mL 00 SKIN EVERY Medica l (70-30) MORNING Branch suspension THEN ADMINISTER 60 UNITS UNDER THE SKIN EVERY EVENING HUMULIN Yes [id number] ADMINISTER Univers 70/30 U-100 5-11 70 UNITS ity of INSULIN 100 00:00: [place] THE [place] unit/mL 00 SKIN EVERY Medica l (70-30) MORNING Branch suspension THEN ADMINISTER 60 UNITS UNDER THE SKIN EVERY EVENING HUMULIN Yes [id number] ADMINISTER Univers 70/30 U-100 5-11 70 UNITS ity of INSULIN 100 00:00: [place] THE [place] unit/mL 00 SKIN EVERY Medica l (70-30) MORNING Branch suspension THEN ADMINISTER 60 UNITS UNDER THE SKIN EVERY EVENING HUMULIN 2021- No [id number] ADMINISTER Univers 70/30 U-100 5-11 08-03 70 [...] 2022- No USE 1 Unive rs Syringe 5- 02-14 SYRINGE ity o f U-500 1/2 00:00: 00:00 DIRECTED [place] mL 31 gauge 00 :00 TWICE MD x 15/64" DAILY WITH Suraj so syrg MEALS [facility] BD Insulin 2022- No USE 1 Unive rs Syringe 03-0314 SYRINGE ity o f U-500 /2 00:00: [...] syrg MEALS [facility] GABAPENTIN Yes [id number] TAKE 1 [facility] 600 mg 5-02 TABLET BY ity of tablet 00:00: MOUTH [place] 00 THREE Medical TIMES Branch DAILY BD INSULIN Yes [id number] USE 1 U nivers SYRINGE 5-02 SYRINGE ity of U-500 2 00:00: TWICE [place] mL 31 gauge 00 DAILY WITH Me dical x 15/64" MEALS. Branch Syrg BD INSULIN Yes [id number] USE 1 U nivers SYRINGE 5-02 SYRINGE ity of U-500 12 00:00: TWICE [place] mL 31 gauge 00 DAILY WITH Me dical x 15/64" MEALS. Branch Syrg BD INSULIN Yes [id number] USE 1 U nivers SYRINGE 5-02 SYRINGE ity of U-500 1/2 00:00: TWICE [place] mL 31 gauge 00 DAILY WITH Me dical x 15/64" MEALS. Branch Syrg BD INSULIN Yes [id number] USE 1 U nivers SYRINGE 5-02 SYRINGE ity of U-500 12 00:00: TWICE [place] mL 31 gauge 00 DAILY WITH Me dical x 15/64" MEALS. Branch Syrg BD INSULIN Yes [id number] USE 1 U nivers SYRINGE 5-02 SYRINGE ity of U-500 1/2 00:00: TWICE [place] mL 31 gauge 00 DAILY WITH Me dical x 15/64" MEALS. Branch Syrg BD INSULIN 2021-0 Yes [id number] USE 1 [facility] nivers SYRINGE 5-02 SYRINGE ity of U-500 2 00:00: TWICE [place] mL 31 gauge 00 DAILY WITH Me dical x 15/64" MEALS. Branch Syrg BD INSULIN 2021-0 Yes [id number] USE 1 U nivers SYRINGE 5-02 SYRINGE ity of U-500 2 00:00: TWICE [place] mL 31 gauge 00 DAILY WITH Me dical x 15/64" MEALS. Branch Syrg BD INSULIN 2021-0 Yes [id number] USE 1 U nivers SYRINGE 5-02 SYRINGE ity of U-500 2 00:00: TWICE [place] mL 31 gauge 00 DAILY WITH Me dical x 15/64" MEALS. Branch Syrg BD INSULIN 2021-0 Yes [id number] USE 1 U nivers SYRINGE 5-02 SYRINGE ity of U-500 2 00:00: TWICE [place] mL 31 gauge 00 DAILY WITH Me dical x 15/64" MEALS. Branch Syrg BD INSULIN Yes [id number] USE 1 U nivers SYRINGE 5-02 SYRINGE ity of U-500 2 00:00: TWICE [place] mL 31 gauge 00 DAILY WITH Me dical x 15/64" MEALS. Branch Syrg BD INSULIN 0 Yes [id number] USE 1 [facility] SYRINGE 5-02 SYRINGE ity of U-500 2 00:00: TWICE [place] mL 31 gauge 00 DAILY WITH Me dical x 15/64" MEALS. Branch Syrg BD INSULIN 2021-0 Yes [id number] USE 1 [facility] S[facility]ING[facility] 5-02 S[facility] ity of U-500 2 00:00: TWICE [place] mL 31 gauge 00 DAILY WITH Me dical x 15/64" MEALS. [facility] Syrg BD INSULIN 2021-0 Yes [id number] USE 1 [facility] 5-02 SYR[facility] ity of U-500 2 00:00: TWICE [place] mL 31 gauge 00 DAILY WITH Me dical x 15/64" MEALS. Branch Syrg BD INSULIN 2021-0 Yes [id number] USE 1 [facility] n[facility] SYR[facility] 5-02 SYRING[facility] ity of U-500 2 00:00: TWICE [place] mL 31 gauge 00 DAILY WITH Me dical x 15/64" MEALS. Branch Syrg BD INSULIN 2021-0 Yes [id number] USE 1 [facility] n[facility] SYRINGE 5-02 SYRING[facility] ity of U-500 2 00:00: TWICE [place] mL 31 gauge 00 DAILY WITH Me dical x 15/64" MEALS. Branch Syrg BD INSULIN 2021-0 Yes [id number] USE 1 [facility] n[facility] SYRINGE 5-02 SYRINGE ity of U-500 2 00:00: TWICE [place] mL 31 gauge 00 DAILY WITH Me dical x 15/64" MEALS. Branch Syrg BD INSULIN 2021-0 Yes [id number] USE 1 [facility] n[facility] SYRINGE 5-02 SYRINGE ity of U-500 2 00:00: TWICE [place] mL 31 gauge 00 DAILY WITH Me dical x 15/64" MEALS. Branch Syrg BD INSULIN 2021-0 Yes [id number] USE 1 [facility] n[facility] SYRINGE 5-02 SYRINGE ity of U-500 2 00:00: TWICE [place] mL 31 gauge 00 DAILY WITH Me dical x 15/64" MEALS. Branch Syrg BD INSULIN 2021-0 Yes [id number] USE 1 [facility] n[facility] SYRINGE 5-02 SYRINGE ity of U-500 2 00:00: TWICE [place] mL 31 gauge 00 DAILY WITH Me dical x 15/64" MEALS. Branch Syrg BD INSULIN 2021-0 Yes [id number] USE 1 [facility] nivers SYRINGE 5-02 SYRINGE ity of U-500 2 00:00: TWICE [place] mL 31 gauge 00 DAILY WITH Me dical x 15/64" MEALS. Branch Syrg BD INSULIN 2021-0 Yes [id number] USE 1 [facility] n[facility] SYRINGE 5-02 SYRINGE ity of U-500 2 00:00: TWICE [place] mL 31 gauge 00 DAILY WITH Me dical x 15/64" MEALS. Branch Syrg BD INSULIN 2021-0 Yes [id number] USE 1 [facility] n[facility] SYRINGE 5-02 SYRINGE ity of U-500 2 00:00: TWICE [place] mL 31 gauge 00 DAILY WITH Me dical x 15/64" MEALS. [facility] Syrg BD INSULIN 2021-0 Yes [id number] USE 1 [facility] n[facility] SYRINGE 5-02 SYRINGE ity of U-500 2 00:00: TWICE [place] mL 31 gauge 00 DAILY WITH Me dical x 15/64" MEALS. Branch Syrg BD INSULIN 2021-0 Yes [id number] USE 1 [facility] n[facility] SYRINGE 5-02 SYRINGE ity of U-500 2 00:00: TWICE [place] mL 31 gauge 00 DAILY WITH Me dical x 15/64" MEALS. Branch Syrg BD INSULIN 2021-0 Yes [id number] USE 1 [facility] n[facility] SYRINGE 5-02 SYRINGE ity of U-500 2 00:00: TWICE [place] mL 31 gauge 00 DAILY WITH Me dical x 15/64" MEALS. Branch Syrg BD INSULIN 2021-0 Yes [id number] USE 1 [facility] n[facility] SYRINGE 5-02 SYRINGE ity of U-500 2 00:00: TWICE [place] mL 31 gauge 00 DAILY WITH Me dical x 15/64" MEALS. Branch Syrg BD INSULIN 2021-0 Yes [id number] USE 1 [facility] n[facility] SYRINGE 5-02 SYRINGE ity of U-500 2 00:00: TWICE [place] mL 31 gauge 00 DAILY WITH Me dical x 15/64" MEALS. [facility] Syrg BD INSULIN 2021-0 Yes [id number] USE 1 [facility] n[facility] SYRINGE 5-02 SYRINGE ity of U-500 2 00:00: TWICE [place] mL 31 gauge 00 DAILY WITH Me dical x 15/64" MEALS. Branch Syrg BD INSULIN 2021-0 Yes [id number] USE 1 [facility] n[facility] SYRINGE 5-02 SYRINGE ity of U-500 2 00:00: TWICE [place] mL 31 gauge 00 DAILY WITH Me dical x 15/64" MEALS. Branch Syrg BD INSULIN 2021-0 Yes [id number] USE 1 [facility] n[facility] SYRINGE 5-02 SYRINGE ity of U-500 2 00:00: TWICE [place] mL 31 gauge 00 DAILY WITH Me dical x 15/64" MEALS. Branch Syrg BD INSULIN 2021-0 Yes [id number] USE 1 [facility] nivers SYRINGE 5-02 SYRINGE ity of U-500 2 00:00: TWICE [place] mL 31 gauge 00 DAILY WITH Me dical x 15/64" MEALS. Branch Syrg BD INSULIN 2021-0 Yes [id number] USE 1 [facility] nivers SYRINGE 5-02 SYRINGE ity of U-500 2 00:00: TWICE [place] mL 31 gauge 00 DAILY WITH Me dical x 15/64" MEALS. Branch Syrg BD INSULIN 2021-0 Yes [id number] USE 1 [facility] nivers SYRINGE 5-02 SYRINGE ity of U-500 2 00:00: TWICE [place] mL 31 gauge 00 DAILY WITH Me dical x 15/64" MEALS. Branch Syrg BD INSULIN 2021-0 Yes [id number] USE 1 [facility] nivers SYRINGE 5-02 SYRINGE ity of U-500 2 00:00: TWICE [place] mL 31 gauge 00 DAILY WITH Me dical x 15/64" MEALS. Branch Syrg BD INSULIN 0 Yes [id number] USE 1 [facility] n[facility] SYRINGE 5-02 SYRINGE ity of U-500 2 00:00: TWICE [place] mL 31 gauge 00 DAILY WITH Me dical x 15/64" MEALS. Branch Syrg BD INSULIN 0 Yes [id number] USE 1 [facility] n[facility] SYRINGE 5-02 SYRINGE ity of U-500 2 00:00: TWICE [place] mL 31 gauge 00 DAILY WITH Me dical x 15/64" MEALS. [facility] Syrg BD INSULIN 2021-0 Yes [id number] USE 1 [facility] nivers SYRINGE 5-02 SYRINGE ity of U-500 2 00:00: TWICE [place] mL 31 gauge 00 DAILY WITH Me dical x 15/64" MEALS. [facility] Syrg BD INSULIN 0 Yes [id number] USE 1 [facility] nivers SYRINGE 5-02 SYRINGE ity of U-500 2 00:00: TWICE [place] mL 31 gauge 00 DAILY WITH Me dical x 15/64" MEALS. Branch Syrg BD INSULIN 2021-0 Yes [id number] USE 1 [facility] n[facility] SYRINGE 5-02 SYRINGE ity of U-500 2 00:00: TWICE [place] mL 31 gauge 00 DAILY WITH Me dical x 15/64" MEALS. Branch Syrg BD INSULIN 2021-0 Yes [id number] USE 1 [facility] n[facility] SYRINGE 5-02 SYRINGE ity of U-500 2 00:00: TWICE [place] mL 31 gauge 00 DAILY WITH Me dical x 15/64" MEALS. [facility] Syrg BD INSULIN 2021-0 Yes [id number] USE 1 [facility] n[facility] SYRINGE 5-02 SYRINGE ity of U-500 2 00:00: TWICE [place] mL 31 gauge 00 DAILY WITH Me dical x 15/64" MEALS. Branch Syrg BD INSULIN Yes [id number] USE 1 [facility] n[facility] SYRINGE 5-02 SYRINGE ity of U-500 2 00:00: TWICE [place] mL 31 gauge 00 DAILY WITH Me dical x 15/64" MEALS. Branch Syrg BD INSULIN 0 Yes [id number] USE 1 [facility] n[facility] SYRINGE 5-02 SYRINGE ity of U-500 2 00:00: TWICE [place] mL 31 gauge 00 DAILY WITH Me dical x 15/64" MEALS. Branch Syrg BD INSULIN 0 Yes [id number] USE 1 [facility] n[facility] SYRINGE 5-02 SYRINGE ity of U-500 2 00:00: TWICE [place] mL 31 gauge 00 DAILY WITH Me dical x 15/64" MEALS. Branch Syrg BD INSULIN Yes [id number] USE 1 [facility] n[facility] SYRINGE 5-02 SYRINGE ity of U-500 2 00:00: TWICE [place] mL 31 gauge 00 DAILY WITH Me dical x 15/64" MEALS. Branch Syrg BD INSULIN Yes [id number] USE 1 [facility] n[facility] SYRINGE 5-02 SYRINGE ity of U-500 2 00:00: TWICE [place] mL 31 gauge 00 DAILY WITH Me dical x 15/64" MEALS. Branch Syrg BD INSULIN Yes [id number] USE 1 [facility] n[facility] SYRINGE 5-02 SYRINGE ity of U-500 2 00:00: TWICE [place] mL 31 gauge 00 DAILY WITH Me dical x 15/64" MEALS. Branch Syrg BD INSULIN 0 Yes [id number] USE 1 [facility] n[facility] SYRINGE 5-02 SYRING[facility] ity of U-500 2 00:00: TWICE [place] mL 31 gauge 00 DAILY WITH Me dical x 15/64" MEALS. Branch Syrg BD INSULIN 0 Yes [id number] USE 1 [facility] n[facility] SYRINGE 5-02 SYRINGE ity of U-500 2 00:00: TWICE [place] mL 31 gauge 00 DAILY WITH Me dical x 15/64" MEALS. Branch Syrg BD INSULIN 0 Yes [id number] USE 1 [facility] nivers SYRINGE 5-02 SYRINGE ity of U-500 2 00:00: TWICE [place] mL 31 gauge 00 DAILY WITH Me dical x 15/64" MEALS. Branch Syrg BD INSULIN 2022-0 Yes [id number] USE 1 [facility] n[facility] SYRINGE 5-02 SYRINGE ity of U-500 11/02 00:00: TWICE [place] mL 31 gauge 00 DAILY WITH Me dical x 15/64" MEALS. Branch Syrg BD INSULIN 2021-0 Yes [id number] USE 1 [facility] nivers SYRINGE 5-02 SYRINGE ity of U-500 2 00:00: TWICE [place] mL 31 gauge 00 DAILY WITH Me dical x 15/64" MEALS. Branch Syrg BD INSULIN 2021-0 Yes [id number] USE 1 [facility] n[facility] SYRINGE 5-02 SYRINGE ity of U-500 11/02 00:00: TWICE [place] mL 31 gauge 00 DAILY WITH Me dical x 15/64" MEALS. Branch Syrg GABAPENTIN 0 2021- No [id number] TAKE 1 [facility] 600 mg 5- 05-31 TABLET BY ity of tablet 00:00: 00:00 MOUTH [place] 00 :00 THREE Medical TIMES Branch DAILY sucralfate 2021-0 Yes [id number] 1g Take 1 [facility] 1 gram 3-27 tablet by ity of tablet 00:00: mouth [place] 00 before Medical meals and Branch at bedtime. sucralfate 2021-0 Yes [id number] 1g Take 1 [facility] 1 gram 3-27 tablet by ity of tablet 00:00: mouth [place] 00 before Medical meals and Branch at bedtime. sucralfate 2021-0 Yes [id number] 1g Take 1 [facility] 1 gram 3-27 tablet by ity of tablet 00:00: mouth [place] 00 before Medical meals and Branch at bedtime. sucralfate 2021-0 Yes [id number] 1g Take 1 [facility] 1 gram 3-27 tablet by ity of tablet 00:00: mouth [place] 00 before Medical meals and Branch at bedtime. sucralfate 2021-0 Yes [id number] 1g Take 1 [facility] 1 gram 3-27 tablet by ity of tablet 00:00: mouth [place] 00 before Medical meals and Branch at bedtime. sucralfate 2021-0 Yes [id number] 1g Take 1 [facility] 1 gram 3-27 tablet by ity of tablet 00:00: mouth [place] 00 before Medical meals and Branch at bedtime. sucralfate 2021-0 Yes [id number] 1g Take 1 [facility] 1 gram 3-27 tablet by ity of tablet 00:00: mouth [place] 00 before Medical meals and Branch at bedtime. sucralfate 2022-0 Yes [id number] 1g Take 1 [facility] 1 gram 3-27 tablet by ity of tablet 00:00: mouth [place] 00 before Medical meals and Branch at bedtime. sucralfate 2022-0 Yes [id number] 1g Take 1 [facility] 1 gram 3-27 tablet by ity of tablet 00:00: mouth [place] 00 before Medical meals and Branch at bedtime. sucralfate 2022-0 Yes [id number] 1g Take 1 [facility] 1 gram 3-27 tablet by ity of tablet 00:00: mouth [place] 00 before Medical meals and Branch at bedtime. sucralfate 2022-0 Yes [id number] 1g Take 1 [facility] 1 gram 3-27 tablet by ity of tablet 00:00: mouth [place] 00 before Medical meals and Branch at bedtime. sucralfate 2022-0 Yes [id number] 1g Take 1 [facility] 1 gram 3-27 tablet by ity of tablet 00:00: mouth [place] 00 before Medical meals and Branch at bedtime. sucralfate 2022-0 Yes [id number] 1g Take 1 [facility] 1 gram 3-27 tablet by ity of tablet 00:00: mouth [place] 00 before Medical meals and Branch at bedtime. sucralfate 2022-0 Yes [id number] 1g Take 1 [facility] 1 gram 3-27 tablet by ity of tablet 00:00: mouth [place] 00 before Medical meals and Branch at bedtime. sucralfate 2022-0 Yes [id number] 1g Take 1 [facility] 1 gram 3-27 tablet by ity of tablet 00:00: mouth [place] 00 before Medical meals and Branch at bedtime. sucralfate 2022-0 Yes [id number] 1g Take 1 [facility] 1 gram 3-27 tablet by ity of tablet 00:00: mouth [place] 00 before Medical meals and Branch at bedtime. sucralfate 2022-0 Yes [id number] 1g Take 1 [facility] 1 gram 3-27 tablet by ity of tablet 00:00: mouth [place] 00 before Medical meals and Branch at bedtime. sucralfate 2022-0 Yes [id number] 1g Take 1 [facility] 1 gram 3-27 tablet by ity of tablet 00:00: mouth [place] 00 before Medical meals and Branch at bedtime. sucralfate 2022-0 Yes [id number] 1g Take 1 [facility] 1 gram 3-27 tablet by ity of tablet 00:00: mouth [place] 00 before Medical meals and Branch at bedtime. sucralfate 2-0 Yes [id number] 1g Take 1 [facility] 1 gram 3-27 tablet by ity of tablet 00:00: mouth [place] 00 before Medical meals and Branch at bedtime. sucralfate 2-0 Yes [id number] 1g Take 1 [facility] 1 gram 3-27 tablet by ity of tablet 00:00: mouth [place] 00 before Medical meals and Branch at bedtime. sucralfate 2-0 Yes [id number] 1g Take 1 [facility] 1 gram 3-27 tablet by ity of tablet 00:00: mouth [place] 00 before Medical meals and Branch at bedtime. sucralfate 2021-0 Yes [id number] 1g Take 1 [facility] 1 gram 3-27 tablet by ity of tablet 00:00: mouth [place] 00 before Medical meals and Branch at bedtime. sucralfate 2021-0 Yes [id number] 1g Take 1 [facility] 1 gram 3-27 tablet by ity of tablet 00:00: mouth [place] 00 before Medical meals and Branch at bedtime. sucralfate 2021-0 Yes [id number] 1g Take 1 [facility] 1 gram 3-27 tablet by ity of tablet 00:00: mouth [place] 00 before Medical meals and Branch at bedtime. sucralfate 2021-0 Yes [id number] 1g Take 1 [facility] 1 gram 3-27 tablet by ity of tablet 00:00: mouth [place] 00 before Medical meals and Branch at bedtime. sucralfate 2021-0 Yes [id number] 1g Take 1 [facility] 1 gram 3-27 tablet by ity of tablet 00:00: mouth [place] 00 before Medical meals and Branch at bedtime. sucralfate 2-0 Yes [id number] 1g Take 1 [facility] 1 gram 3-27 tablet by ity of tablet 00:00: mouth [place] 00 before Medical meals and Branch at bedtime. sucralfate 2-0 Yes [id number] 1g Take 1 [facility] 1 gram 3-27 tablet by ity of tablet 00:00: mouth [place] 00 before Medical meals and Branch at bedtime. sucralfate 2022-0 Yes [id number] 1g Take 1 [facility] 1 gram 3-27 tablet by ity of tablet 00:00: mouth [place] 00 before Medical meals and Branch at bedtime. sucralfate 2022-0 Yes [id number] 1g Take 1 [facility] 1 gram 3-27 tablet by ity of tablet 00:00: mouth [place] 00 before Medical meals and Branch at bedtime. sucralfate 2022-0 Yes [id number] 1g Take 1 [facility] 1 gram 3-27 tablet by ity of tablet 00:00: mouth [place] 00 before Medical meals and Branch at bedtime. sucralfate 2022-0 Yes [id number] 1g Take 1 [facility] 1 gram 3-27 tablet by ity of tablet 00:00: mouth [place] 00 before Medical meals and Branch at bedtime. sucralfate 2022-0 Yes [id number] 1g Take 1 [facility] 1 gram 3-27 tablet by ity of tablet 00:00: mouth [place] 00 before Medical meals and Branch at bedtime. sucralfate 2022-0 Yes [id number] 1g Take 1 [facility] 1 gram 3-27 tablet by ity of tablet 00:00: mouth [place] 00 before Medical meals and Branch at bedtime. sucralfate 2-0 Yes [id number] 1g Take 1 [facility] 1 gram 3-27 tablet by ity of tablet 00:00: mouth [place] 00 before Medical meals and Branch at bedtime. sucralfate 2-0 Yes [id number] 1g Take 1 [facility] 1 gram 3-27 tablet by ity of tablet 00:00: mouth [place] 00 before Medical meals and Branch at bedtime. sucralfate 2022-0 Yes [id number] 1g Take 1 [facility] 1 gram 3-27 tablet by ity of tablet 00:00: mouth [place] 00 before Medical meals and Branch at bedtime. sucralfate 2022-0 Yes [id number] 1g Take 1 [facility] 1 gram 3-27 tablet by ity of tablet 00:00: mouth [place] 00 before Medical meals and Branch at bedtime. sucralfate 2022-0 Yes [id number] 1g Take 1 [facility] 1 gram 3-27 tablet by ity of tablet 00:00: mouth [place] 00 before Medical meals and Branch at bedtime. sucralfate 2022-0 Yes [id number] 1g Take 1 [facility] 1 gram 3-27 tablet by ity of tablet 00:00: mouth [place] 00 before Medical meals and Branch at bedtime. sucralfate 2022-0 Yes [id number] 1g Take 1 [facility] 1 gram 3-27 tablet by ity of tablet 00:00: mouth [place] 00 before Medical meals and Branch at bedtime. sucralfate 2022-0 Yes [id number] 1g Take 1 [facility] 1 gram 3-27 tablet by ity of tablet 00:00: mouth [place] 00 before Medical meals and Branch at bedtime. sucralfate 2022-0 Yes [id number] 1g Take 1 [facility] 1 gram 3-27 tablet by ity of tablet 00:00: mouth [place] 00 before Medical meals and Branch at bedtime. sucralfate 2022-0 Yes [id number] 1g Take 1 [facility] 1 gram 3-27 tablet by ity of tablet 00:00: mouth [place] 00 before Medical meals and Branch at bedtime. sucralfate 2022-0 Yes [id number] 1g Take 1 [facility] 1 gram 3-27 tablet by ity of tablet 00:00: mouth [place] 00 before Medical meals and Branch at bedtime. sucralfate 2022-0 Yes [id number] 1g Take 1 [facility] 1 gram 3-27 tablet by ity of tablet 00:00: mouth [place] 00 before Medical meals and Branch at bedtime. sucralfate 2022-0 Yes [id number] 1g Take 1 [facility] 1 gram 3-27 tablet by ity of tablet 00:00: mouth [place] 00 before Medical meals and Branch at bedtime. sucralfate 2022-0 Yes [id number] 1g Take 1 [facility] 1 gram 3-27 tablet by ity of tablet 00:00: mouth [place] 00 before Medical meals and Branch at bedtime. sucralfate 2022-0 Yes [id number] 1g Take 1 [facility] 1 gram 3-27 tablet by ity of tablet 00:00: mouth [place] 00 before Medical meals and Branch at bedtime. sucralfate 2022-0 Yes [id number] 1g Take 1 [facility] 1 gram 3-27 tablet by ity of tablet 00:00: mouth [place] 00 before Medical meals and Branch at bedtime. sucralfate 2022-0 Yes [id number] 1g Take 1 [facility] 1 gram 3-27 tablet by ity of tablet 00:00: mouth [place] 00 before Medical meals and Branch at bedtime. sucralfate 2022-0 Yes [id number] 1g Take 1 [facility] 1 gram 3-27 [...] needed for Anxiety. hydrALAZINE 0 Yes 10mg Q.[id number] Take [address] [facility] (APRESOLINE 3-11 [id number] by [facility] ) 10 MG [...] 02 Center tablet gabapentin 2021-0 Yes 100mg Q.[id number] Take [address] [facility] (NEURONTIN) 3-11 [id number] mg by L ukes 100 MG 14:10: [...] needed for Anxiety. hydrALAZINE 0 Yes 10mg Q.[id number] Take [address] [facility] (APRESOLINE 3-11 [id number] by [facility] ) 10 MG [...] MG 02 Center tablet gabapentin Yes 100mg Q.[id number] Take [address] [facility] (NEURONTIN) 3-11 [id number] mg by L ukes 100 MG 14:10: [...] needed for Anxiety. hydrALAZINE 0 Yes 10mg Q.[id number] Take [address] [facility] (APRESOLINE 3-11 [id number] by [facility] ) 10 MG [...] 02 Center tablet gabapentin 2021-0 Yes 100mg Q.[id number] Take [address] [facility] (NEURONTIN) 3-11 [id number] mg by L ukes 100 MG 14:10: [...] needed for Anxiety. hydrALAZINE 2021-0 Yes 10mg Q.[id number] Take [address] [facility] (APRESOLINE 3-11 [id number] by [facility] ) 10 MG [...] 02 Center tablet gabapentin 2021-0 Yes 100mg Q.[id number] Take [address] [facility] (NEURONTIN) 3-11 [id number] mg by L ukes 100 MG 14:10: [...] needed for Anxiety. hydrALAZINE 0 Yes 10mg Q.[id number] Take [address] [facility] (APRESOLINE 3-11 [id number] by [facility] ) 10 MG [...] 02 Center tablet gabapentin 0 Yes 100mg Q.[id number] Take [address] [facility] (NEURONTIN) 3-11 [id number] mg by L u[facility] 100 MG 14:10: [...] al 40 MG 02 Center tablet clonazePAM 2022-0 Yes .5mg Take 0.[address] [facility] (KlonoPIN) 3-11 [facility] MG 14:10: mouth 2 Medical tablet 02 (two) Center times daily as needed for Anxiety. hydrALAZINE 2021-0 Yes 10mg Q.81088371 Take [address] [facility] (APRESOLINE 3-11 [id number] by [facility] ) 10 MG [...] 02 Center tablet gabapentin 0 Yes 100mg Q.56374865 Take [address] [facility] (NEURONTIN) 3-11 [id number] mg by L u[facility] 100 MG 14:10: [...] needed for Anxiety. hydrALAZINE 0 Yes 10mg Q.[id number] Take [address] [facility] (APRESOLINE 3-11 [id number] by [facility] ) 10 MG [...] 02 Center tablet gabapentin 2021-0 Yes 100mg Q.[id number] Take [address] [facility] (NEURONTIN) 3-11 [id number] mg by L ukes 100 MG 14:10: 3D mouth 3 Medical capsule 02 (three) Center times daily. amLODIPine 2022-0 Yes 10mg QD Take 10 mg C [...] needed for Anxiety. hydrALAZINE 0 Yes 10mg Q.09265999 Take [address] [facility] (APRESOLINE 3-11 [id number] [facility] ) 10 MG [...] 02 Center tablet gabapentin 0 Yes 100mg Q.[id number] Take [address] [facility] (NEURONTIN) 3-11 [id number] mg by L u[facility] 100 MG 14:10: [...] needed for Anxiety. hydrALAZINE 0 Yes 10mg Q.[id number] Take [address] [facility] (APRESOLINE 3-11 [id number] by [facility] ) 10 MG [...] 02 Center tablet gabapentin 2021-0 Yes 100mg Q.52120748 Take [address] [facility] (NEURONTIN) 3-11 [id number] mg by L u[facility] 100 MG 14:10: [...] needed for Anxiety. hydrALAZINE 2021-0 Yes 10mg Q.89461065 Take [address] [facility] (APRESOLINE 3-11 [id number] by [facility] ) 10 MG [...] 02 Center tablet gabapentin 0 Yes 100mg Q.[id number] Take [address] [facility] (NEURONTIN) 3-11 [id number] mg by L u[facility] 100 MG 14:10: [...] 02 Center (18 mg/3 mL) PnIj metoprolol 2022-0 Yes 100mg QD Take 100 [...] needed for Anxiety. hydrALAZINE 0 Yes 10mg Q.99763192 Take [address] [facility] (APRESOLINE 3-11 [id number] [facility] ) 10 MG [...] 02 Center tablet gabapentin 2021-0 Yes 100mg Q.91642757 Take [address] [facility] (NEURONTIN) 3-11 [id number] mg by L u[facility] 100 MG 14:10: [...] needed for Anxiety. hydrALAZINE 2021-0 Yes 10mg Q.[id number] Take [address] [facility] (APRESOLINE 3-11 [id number] by mouth [facility] ) 10 MG [...] 02 Center tablet gabapentin 2021-0 Yes 100mg Q.[id number] Take [address] [facility] (NEURONTIN) 3-11 [id number] mg by L ukes 100 MG 14:10: [...] needed for Anxiety. hydrALAZINE 2021-0 Yes 10mg Q.[id number] Take [address] [facility] (APRESOLINE 3-11 [id number] by [facility] ) 10 MG [...] 02 Center tablet gabapentin 2021-0 Yes 100mg Q.[id number] Take [address] [facility] (NEURONTIN) 3-11 [id number] mg by L [facility] 100 MG 14:10: [...] needed for Anxiety. hydrALAZINE 0 Yes 10mg Q.[id number] Take [address] [facility] (APRESOLINE 3-11 [id number] by [facility] ) 10 MG [...] 02 Center tablet gabapentin 0 Yes 100mg Q.[id number] Take [address] [facility] (NEURONTIN) 3-11 [id number] mg by L ukes 100 MG 14:10: [...] 00 TWICE Medical DAILY Branch METOPROLOL 2021-0 2- No TAKE 1 [facility] ers TARTRATE 2-14 06-09 TABLET BY ity o f 100 mg 00:00: 00:00 MOUTH [place] tablet 00 :00 TWICE Medical DAILY Branch HYDROCHLORO 2021-0 Yes [id number] 12.5mg TAKE 1 [facility] THIAZIDE 1-19 CAPSULE BY ity o f 12.5 mg 00:00: MOUTH [place] capsule 00 DAILY Medical Branch HYDROCHLORO 2021-0 Yes [id number] 12.5mg TAKE 1 [facility] THIAZIDE 1-19 CAPSULE BY ity o f 12.5 mg 00:00: MOUTH [place] capsule 00 DAILY Medical Branch HYDROCHLORO 2021-0 Yes [id number] 12.5mg TAKE 1 [facility] THIAZIDE 1-19 CAPSULE BY ity o f 12.5 mg 00:00: MOUTH [place] capsule 00 DAILY Medical Branch HYDROCHLORO 2021-0 Yes [id number] 12.5mg TAKE 1 [facility] THIAZIDE 1-19 CAPSULE BY ity o f 12.5 mg 00:00: MOUTH [place] capsule 00 DAILY Medical Branch HYDROCHLORO 2021-0 2021- No [id number] 12.5mg TAKE 1 [facility] THIAZIDE 1-19 07-18 CAPSULE BY ity of 12.5 mg 00:00: 00:00 MOUTH [place] capsule 00 :00 DAILY Medical Branch NITROGLYCER 2020-[address] 1 [facility] vers [...] PLACE 1 Un ally IN 0.4 mg 12-28 TABLET ity of sublingual 00:00: 00:00 UNDER THE [place] tablet 00 :00 TONGUE Medical EVERY 5 Branch MINUTES NEEDED FOR CHEST PAIN. DICLOFENAC 2020-11 Yes [id number] APPLY TO [facility] SODIUM 1 % 2-02 THE ity of gel 00:00: AFFECTED [place] 00 AREA FOUR Medical TIMES Branch DAILY DICLOFENAC 2020-11 Yes [id number] APPLY TO [facility] SODIUM 1 % 2-02 THE ity of gel 00:00: AFFECTED [place] 00 AREA FOUR Medical TIMES Branch DAILY DICLOFENAC 2020-11 Yes [id number] APPLY TO [facility] SODIUM 1 % 2-02 THE ity of gel 00:00: AFFECTED [place] 00 AREA FOUR Medical TIMES Branch DAILY DICLOFENAC 2020-11 Yes [id number] APPLY TO [facility] SODIUM 1 % 2-02 THE ity of gel 00:00: AFFECTED [place] 00 AREA FOUR Medical TIMES Branch DAILY DICLOFENAC 2020-11 Yes [id number] APPLY TO [facility] SODIUM 1 % 2-02 THE ity of gel 00:00: AFFECTED [place] 00 AREA FOUR Medical TIMES Branch DAILY DICLOFENAC 2020-11 Yes [id number] APPLY TO [facility] SODIUM 1 % 2-02 THE ity of gel 00:00: AFFECTED [place] 00 AREA FOUR Medical TIMES Branch DAILY DICLOFENAC 2020-11 Yes [id number] APPLY TO [facility] SODIUM 1 % 2-02 THE ity of gel 00:00: AFFECTED [place] 00 AREA FOUR Medical TIMES Branch DAILY DICLOFENAC 2020-11 Yes [id number] APPLY TO [facility] SODIUM 1 % 2-02 THE ity of gel 00:00: AFFECTED [place] 00 AREA FOUR Medical TIMES Branch DAILY DICLOFENAC 2020-11 Yes [id number] APPLY TO [facility] SODIUM 1 % 2-02 THE ity of gel 00:00: AFFECTED [place] 00 AREA FOUR Medical TIMES Branch DAILY DICLOFENAC 2020-11 Yes [id number] APPLY TO [facility] SODIUM 1 % 2-02 THE ity of gel 00:00: AFFECTED [place] 00 AREA FOUR Medical TIMES Branch DAILY DICLOFENAC 2020-11 Yes [id number] APPLY TO [facility] SODIUM 1 % 2-02 THE ity of gel 00:00: AFFECTED [place] 00 AREA FOUR Medical TIMES Branch DAILY DICLOFENAC 2020-11 Yes [id number] APPLY TO [facility] SODIUM 1 % 2-02 THE ity of gel 00:00: AFFECTED [place] 00 AREA FOUR Medical TIMES Branch DAILY DICLOFENAC 2020-11 Yes [id number] APPLY TO [facility] SODIUM 1 % 2-02 THE ity of gel 00:00: AFFECTED [place] 00 AREA FOUR Medical TIMES Branch DAILY DICLOFENAC 2020-11 Yes [id number] APPLY TO [facility] SODIUM 1 % 2-02 THE ity of gel 00:00: AFFECTED [place] 00 AREA FOUR Medical TIMES Branch DAILY DICLOFENAC 2020-11 Yes [id number] APPLY TO [facility] SODIUM 1 % 2-02 THE ity of gel 00:00: AFFECTED [place] 00 AREA [facility] Medical TIMES Branch DAILY DICLOFENAC 2020-11 Yes [id number] APPLY TO Univers SODIUM 1 % 2-02 THE ity of gel 00:00: AFFECTED [place] 00 AREA FOUR Medical TIMES Branch DAILY DICLOFENAC 2020-11 Yes [id number] APPLY TO [facility] SODIUM 1 % 2-02 THE ity of gel 00:00: AFFECTED [place] 00 AREA [facility] Medical TIMES Branch DAILY DICLOFENAC 2020-11 Yes [id number] APPLY TO [facility] SODIUM 1 % 2-02 THE ity of gel 00:00: AFFECTED [place] 00 AREA [facility] Medical TIMES Branch DAILY DICLOFENAC 2020-11 Yes [id number] APPLY TO [facility] SODIUM 1 % 2-02 THE ity of gel 00:00: AFFECTED [place] 00 AREA [facility] Medical TIMES Branch DAILY DICLOFENAC 2020-11 Yes [id number] APPLY TO [facility] SODIUM 1 % 2-02 THE ity of gel 00:00: AFFECTED [place] 00 AREA [facility] Medical TIMES Branch DAILY DICLOFENAC 2020-11 Yes [id number] APPLY TO [facility] SODIUM 1 % 2-02 THE ity of gel 00:00: AFFECTED [place] 00 AREA [facility] Medical TIMES Branch DAILY DICLOFENAC 2020-11 Yes [id number] APPLY TO [facility] SODIUM 1 % 2-02 THE ity of gel 00:00: AFFECTED [place] 00 AREA [facility] Medical TIMES Branch DAILY DICLOFENAC 2020-11- No [id number] APPLY TO [facility] SODIUM 1 % 2-02 10-25 THE ity of gel 00:00: 00:00 AFFECTED [place] 00 :00 AREA [facility] Medical TIMES Branch DAILY DICLOFENAC 2020-11- No [id number] APPLY TO [facility] SODIUM 1 % 2-02 10-25 THE ity of gel 00:00: 00:00 AFFECTED [place] 00 :00 AREA [facility] Medical TIMES Branch DAILY colchicine 2020-11 Yes [id number] .6mg Take 1 U nivers 0.6 mg 0-07 tablet by ity of tablet 00:00: mouth [place] 00 daily. Medical Branch colchicine 2020-11 Yes [id number] .6mg Take 1 [facility] nivers 0.6 mg 0-07 tablet by ity of tablet 00:00: mouth [place] 00 daily. [facility] colchicine 2020-11 Yes [id number] .6mg Take 1 [facility] nivers 0.6 mg 0-07 tablet by ity of tablet 00:00: mouth [place] 00 daily. [facility] colchicine 2020-11 Yes [id number] .6mg Take 1 [facility] nivers 0.6 mg 0-07 tablet by ity of tablet 00:00: mouth [place] 00 daily. [facility] colchicine 2020-11 Yes [id number] .6mg Take 1 [facility] n[facility] 0.6 mg 0-07 tablet by ity of tablet 00:00: mouth [place] 00 daily. [facility] colchicine 2020-11 Yes [id number] .6mg Take 1 [facility] nivers 0.6 mg 0-07 tablet by ity of tablet 00:00: mouth [place] 00 daily. [facility] colchicine 2020-11 Yes [id number] .6mg Take 1 [facility] nivers 0.6 mg 0-07 tablet by ity of tablet 00:00: mouth [place] 00 daily. [facility] colchicine 2020-11 Yes [id number] .6mg Take 1 [facility] nivers 0.6 mg 0-07 tablet by ity of tablet 00:00: mouth [place] 00 daily. [facility] colchicine 2020-11 Yes [id number] .6mg Take 1 [facility] n[facility] 0.6 mg 0-07 tablet by ity of tablet 00:00: mouth [place] 00 daily. [facility] colchicine 2020-11 Yes [id number] .6mg Take 1 [facility] nivers 0.6 mg 0-07 tablet by ity of tablet 00:00: mouth [place] 00 daily. [facility] colchicine 2020-11 Yes [id number] .6mg Take 1 [facility] nivers 0.6 mg 0-07 tablet by ity of tablet 00:00: mouth [place] 00 daily. [facility] colchicine 2020-11 Yes [id number] .6mg Take 1 [facility] nivers 0.6 mg 0-07 tablet by ity of tablet 00:00: mouth [place] 00 daily. [facility] colchicine 2020-11 Yes [id number] .6mg Take 1 [facility] nivers 0.6 mg 0-07 tablet by ity of tablet 00:00: mouth [place] 00 daily. [facility] colchicine 2020-11- No [id number] .6mg Take 1 [facility] 0.6 mg 07-20 tablet by ity of tablet 00:00: 00:00 [...] [place] x /16 [facility] TRUEPLUS 1-0 Yes USE [...] [place] x /16 [facility] mirtazapine 2020-0 Yes 15mg Take 15 mg [facility] 15 mg 7-14 by mouth ity of tablet 09:38: at [place] [address] bedtime. [facility] mesalamine 2020-0 Yes 1.5g Take 1.5 g U nivers 0.375 gram 7-14 by mouth ity o f 24 hr 09:38: daily. [facility] 49 [facility] mirtazapine 2020-0 Yes 15mg Take 15 mg [facility] 15 mg 7-14 by mouth ity of tablet 09:38: at [place] [address] bedtime. [facility] mesalamine 2020-0 Yes 1.5g Take 1.5 g U nivers 0.375 gram 7-14 by mouth ity o f 24 hr 09:38: daily. [facility] 49 [facility] mirtazapine 2020-0 Yes 15mg Take 15 mg [facility] 15 mg 7-14 by mouth ity of tablet 09:38: at [place] [address] bedtime. [facility] mesalamine 2020-0 Yes 1.5g Take 1.5 g U nivers 0.375 gram 7-14 by mouth ity o f 24 hr 09:38: daily. [facility] 49 [facility] mirtazapine 2020-0 Yes 15mg Take 15 mg [facility] 15 mg 7-14 by mouth ity of tablet 09:38: at [place] [address] bedtime. [facility] mesalamine 2020-0 Yes 1.5g Take 1.5 g U nivers 0.375 gram 7-14 by mouth ity o f 24 hr 09:38: daily. [place] [address] Medical Branch mirtazapine 2020-0 Yes 15mg Take 15 mg [facility] 15 mg 7-14 by mouth ity of tablet 09:38: at [place] [address] bedtime. [facility] mesalamine 2020-0 Yes 1.5g Take 1.5 g U nivers 0.375 gram 7-14 by mouth ity o f 24 hr 09:38: daily. [facility] 49 [facility] mirtazapine 2020-0 Yes 15mg Take 15 mg [facility] 15 mg 7-14 by mouth ity of tablet 09:38: at [place] [address] bedtime. Medical [place] mesalamine 2020-0 Yes 1.5g Take 1.5 g U nivers 0.375 gram 7-14 by mouth ity o f 24 hr 09:38: daily. [address] mirtazapine 2020-0 Yes 15mg Take 15 mg [facility] 15 mg 7-14 by mouth ity of tablet 09:38: at [place] [address] bedtime. [facility] mesalamine 2020-0 Yes 1.5g Take 1.5 g U nivers 0.375 gram 7-14 by mouth ity o f 24 hr 09:38: daily. [place] capsule 49 [facility] Branch mirtazapine 2020-0 Yes 15mg Take 15 mg [facility] 15 mg 7-14 by mouth ity of tablet 09:38: at [place] [address] bedtime. [facility] mesalamine 2020-0 Yes 1.5g Take 1.5 g U nivers 0.375 gram 7-14 by mouth ity o f 24 hr 09:38: daily. [facility] 49 [facility] Branch mirtazapine 2020-0 Yes 15mg Take 15 mg [facility] 15 mg 7-14 by mouth ity of tablet 09:38: at [place] [address] bedtime. [facility] mesalamine 2020-0 Yes 1.5g Take 1.5 g U nivers 0.375 gram 7-14 by mouth ity o f 24 hr 09:38: daily. [facility] 49 [facility] Branch mirtazapine 2020-0 Yes 15mg Take 15 mg [facility] 15 mg 7-14 by mouth ity of tablet 09:38: at [place] [address] bedtime. [facility] mesalamine 2020-0 Yes 1.5g Take 1.5 g U nivers 0.375 gram 7-14 by mouth ity o f 24 hr 09:38: daily. [facility] 49 [facility] Branch mirtazapine 2020-0 Yes 15mg Take 15 mg [facility] 15 mg 7-14 by mouth ity of tablet 09:38: at [place] [address] bedtime. Medical [place] mesalamine 2020-0 Yes 1.5g Take 1.5 g U nivers 0.375 gram 7-14 by mouth ity o f 24 hr 09:38: daily. [facility] 49 Medical [place] mirtazapine 2020-0 Yes 15mg Take 15 mg [facility] 15 mg 7-14 by mouth ity of tablet 09:38: at [place] [address] bedtime. Medical [place] mesalamine 2020-0 Yes 1.5g Take 1.5 g U nivers 0.375 gram 7-14 by mouth ity o f 24 hr 09:38: daily. [facility] 49 Medical [place] mirtazapine 2020-0 Yes 15mg Take 15 mg [facility] 15 mg 7-14 by mouth ity of tablet 09:38: at [place] [address] bedtime. [facility] mesalamine 2020-0 Yes 1.5g Take 1.5 g U nivers 0.375 gram 7-14 by mouth ity o f 24 hr 09:38: daily. [place] capsule 49 [facility] Branch mirtazapine 2020-0 Yes 15mg Take 15 mg [facility] 15 mg 7-14 by mouth ity of tablet 09:38: at [place] [address] bedtime. [facility] mesalamine 2020-0 Yes 1.5g Take 1.5 g U nivers 0.375 gram 7-14 by mouth ity o f 24 hr 09:38: daily. [facility] 49 [facility] Branch mirtazapine 2020-0 Yes 15mg Take 15 mg [facility] 15 mg 7-14 by mouth ity of tablet 09:38: at [place] [address] bedtime. [facility] mesalamine 2020-0 Yes 1.5g Take 1.5 g U nivers 0.375 gram 7-14 by mouth ity o f 24 hr 09:38: daily. [facility] 49 [facility] Branch mirtazapine 2020-0 Yes 15mg Take 15 mg [facility] 15 mg 7-14 by mouth ity of tablet 09:38: at [place] [address] bedtime. [facility] mesalamine 2020-0 Yes 1.5g Take 1.5 g U nivers 0.375 gram 7-14 by mouth ity o f 24 hr 09:38: daily. [facility] 49 [facility] mirtazapine 2020-0 Yes 15mg Take 15 mg [facility] 15 mg 7-14 by mouth ity of tablet 09:38: at [place] [address] bedtime. [facility] mesalamine 2020-0 Yes 1.5g Take 1.5 g U nivers 0.375 gram 7-14 by mouth ity o f 24 hr 09:38: daily. [facility] 49 [facility] mirtazapine 2020-0 Yes 15mg Take 15 mg [facility] 15 mg 7-14 by mouth ity of tablet 09:38: at [place] [address] bedtime. [facility] mesalamine 2020-0 Yes 1.5g Take 1.5 g U nivers 0.375 gram 7-14 by mouth ity o f 24 hr 09:38: daily. [facility] 49 [facility] mirtazapine 2020-0 Yes 15mg Take 15 mg [facility] 15 mg 7-14 by mouth ity of tablet 09:38: at [place] [address] bedtime. [facility] mesalamine 2020-0 Yes 1.5g Take 1.5 g U nivers 0.375 gram 7-14 by mouth ity o f 24 hr 09:38: daily. [place] capsule 49 [facility] Branch mirtazapine 2020-0 Yes 15mg Take 15 mg [facility] 15 mg 7-14 by mouth ity of tablet 09:38: at [place] [address] bedtime. [facility] mesalamine 2020-0 Yes 1.5g Take 1.5 g U nivers 0.375 gram 7-14 by mouth ity o f 24 hr 09:38: daily. [facility] 49 [facility] mirtazapine 2020-0 Yes 15mg Take 15 mg [facility] 15 mg 7-14 by mouth ity of tablet 09:38: at [place] [address] bedtime. [facility] mesalamine 2020-0 Yes 1.5g Take 1.5 g U nivers 0.375 gram 7-14 by mouth ity o f 24 hr 09:38: daily. [facility] 49 [facility] mirtazapine 2020-0 Yes 15mg Take 15 mg [facility] 15 mg 7-14 by mouth ity of tablet 09:38: at [place] [address] bedtime. Medical [place] mesalamine 2020-0 Yes 1.5g Take 1.5 g U nivers 0.375 gram 7-14 by mouth ity o f 24 hr 09:38: daily. [facility] 49 [facility] Branch mirtazapine 2020-0 Yes 15mg Take 15 mg [facility] 15 mg 7-14 by mouth ity of tablet 09:38: at [place] [address] bedtime. Medical [place] mesalamine 2020-0 Yes 1.5g Take 1.5 g U nivers 0.375 gram 7-14 by mouth ity o f 24 hr 09:38: daily. [facility] 49 [facility] mirtazapine 2020-0 Yes 15mg Take 15 mg [facility] 15 mg 7-14 by mouth ity of tablet 09:38: at [place] [address] bedtime. Medical [place] mesalamine 2020-0 Yes 1.5g Take 1.5 g U nivers 0.375 gram 7-14 by mouth ity o f 24 hr 09:38: daily. [facility] 49 [facility] Branch mirtazapine 2020-0 Yes 15mg Take 15 mg [facility] 15 mg 7-14 by mouth ity of tablet 09:38: at [place] [address] bedtime. [facility] mesalamine 2020-0 Yes 1.5g Take 1.5 g U nivers 0.375 gram 7-14 by mouth ity o f 24 hr 09:38: daily. [facility] 49 [facility] Branch mirtazapine 2020-0 Yes 15mg Take 15 mg [facility] 15 mg 7-14 by mouth ity of tablet 09:38: at [place] [address] bedtime. [facility] mesalamine 2020-0 Yes 1.5g Take 1.5 g U nivers 0.375 gram 7-14 by mouth ity o f 24 hr 09:38: daily. [facility] 49 [facility] Branch mirtazapine 2020-0 Yes 15mg Take 15 mg [facility] 15 mg 7-14 by mouth ity of tablet 09:38: at [place] [address] bedtime. [facility] mesalamine 2020-0 Yes 1.5g Take 1.5 g U nivers 0.375 gram 7-14 by mouth ity o f 24 hr 09:38: daily. [facility] 49 [facility] Branch mirtazapine 2020-0 Yes 15mg Take 15 mg [facility] 15 mg 7-14 by mouth ity of tablet 09:38: at [place] [address] bedtime. [facility] mesalamine 2020-0 Yes 1.5g Take 1.5 g U nivers 0.375 gram 7-14 by mouth ity o f 24 hr 09:38: daily. [facility] 49 [facility] Branch mirtazapine 2020-0 Yes 15mg Take 15 mg [facility] 15 mg 7-14 by mouth ity of tablet 09:38: at [place] [address] bedtime. [facility] mesalamine 2020-0 Yes 1.5g Take 1.5 g U nivers 0.375 gram 7-14 by mouth ity o f 24 hr 09:38: daily. [facility] 49 [facility] Branch mirtazapine 2020-0 Yes 15mg Take 15 mg [facility] 15 mg 7-14 by mouth ity of tablet 09:38: at [place] [address] bedtime. [facility] mesalamine 2020-0 Yes 1.5g Take 1.5 g U nivers 0.375 gram 7-14 by mouth ity o f 24 hr 09:38: daily. [facility] 49 [facility] Branch mirtazapine 2020-0 Yes 15mg Take 15 mg [facility] 15 mg 7-14 by mouth ity of tablet 09:38: at [place] [address] bedtime. [facility] mesalamine 2020-0 Yes 1.5g Take 1.5 g U nivers 0.375 gram 7-14 by mouth ity o f 24 hr 09:38: daily. [place] capsule 49 [facility] Branch mirtazapine 2020-0 Yes 15mg Take 15 mg [facility] 15 mg 7-14 by mouth ity of tablet 09:38: at [place] [address] bedtime. [facility] mesalamine 2020-0 Yes 1.5g Take 1.5 g U nivers 0.375 gram 7-14 by mouth ity o f 24 hr 09:38: daily. [facility] 49 [facility] Branch mirtazapine 2020-0 Yes 15mg Take 15 mg [facility] 15 mg 7-14 by mouth ity of tablet 09:38: at [place] [address] bedtime. [facility] mesalamine 2020-0 Yes 1.5g Take 1.5 g U nivers 0.375 gram 7-14 by mouth ity o f 24 hr 09:38: daily. [facility] 49 [facility] Branch mirtazapine 2020-0 Yes 15mg Take 15 mg [facility] 15 mg 7-14 by mouth ity of tablet 09:38: at [place] [address] bedtime. Medical [place] mesalamine 2020-0 Yes 1.5g Take 1.5 g U nivers 0.375 gram 7-14 by mouth ity o f 24 hr 09:38: daily. [facility] 49 [facility] Branch mirtazapine 2020-0 Yes 15mg Take 15 mg [facility] 15 mg 7-14 by mouth ity of tablet 09:38: at [place] [address] bedtime. Medical [place] mesalamine 2020-0 Yes 1.5g Take 1.5 g U nivers 0.375 gram 7-14 by mouth ity o f 24 hr 09:38: daily. [facility] 49 [facility] Branch mirtazapine 2020-0 Yes 15mg Take 15 mg [facility] 15 mg 7-14 by mouth ity of tablet 09:38: at [place] [address] bedtime. Medical [place] mesalamine 2020-0 Yes 1.5g Take 1.5 g U nivers 0.375 gram 7-14 by mouth ity o f 24 hr 09:38: daily. [facility] 49 [facility] Branch mirtazapine 2020-0 Yes 15mg Take 15 mg [facility] 15 mg 7-14 by mouth ity of tablet 09:38: at [place] [address] bedtime. [facility] mesalamine 2020-0 Yes 1.5g Take 1.5 g U nivers 0.375 gram 7-14 by mouth ity o f 24 hr 09:38: daily. [place] capsule 49 [facility] Branch mirtazapine 2020-0 Yes 15mg Take 15 mg [facility] 15 mg 7-14 by mouth ity of tablet 09:38: at [place] [address] bedtime. Medical [facility] mesalamine 2020-0 Yes 1.5g Take 1.5 g U nivers 0.375 gram 7-14 by mouth ity o f 24 hr 09:38: daily. [facility] 49 [facility] Branch mirtazapine 2020-0 Yes 15mg Take 15 mg [facility] 15 mg 7-14 by mouth ity of tablet 09:38: at [place] [address] bedtime. [facility] mesalamine 2020-0 Yes 1.5g Take 1.5 g U nivers 0.375 gram 7-14 by mouth ity o f 24 hr 09:38: daily. [facility] 49 [facility] Branch mirtazapine 2020-0 Yes 15mg Take 15 mg [facility] 15 mg 7-14 by mouth ity of tablet 09:38: at [place] [address] bedtime. [facility] mesalamine 2020-0 Yes 1.5g Take 1.5 g U nivers 0.375 gram 7-14 by mouth ity o f 24 hr 09:38: daily. [facility] 49 [facility] Branch mirtazapine 2020-0 Yes 15mg Take 15 mg [facility] 15 mg 7-14 by mouth ity of tablet 09:38: at [place] [address] bedtime. [facility] mesalamine 2020-0 Yes 1.5g Take 1.5 g U nivers 0.375 gram 7-14 by mouth ity o f 24 hr 09:38: daily. [facility] 49 [facility] Branch mirtazapine 2020-0 Yes 15mg Take 15 mg [facility] 15 mg 7-14 by mouth ity of tablet 09:38: at [place] [address] bedtime. [facility] mesalamine 2020-0 Yes 1.5g Take 1.5 g U nivers 0.375 gram 7-14 by mouth ity o f 24 hr 09:38: daily. [facility] 49 [facility] Branch mirtazapine 2020-0 Yes 15mg Take 15 mg [facility] 15 mg 7-14 by mouth ity of tablet 09:38: at [place] [address] bedtime. Medical [facility] mesalamine 2020-0 Yes 1.5g Take 1.5 g U nivers 0.375 gram 7-14 by mouth ity o f 24 hr 09:38: daily. [place] capsule 49 [facility] Branch mirtazapine 2020-0 Yes 15mg Take 15 mg [facility] 15 mg 7-14 by mouth ity of tablet 09:38: at [place] [address] bedtime. Medical Branch mesalamine 2020-0 Yes 1.5g Take 1.5 g U nivers 0.375 gram 7-14 by mouth ity o f 24 hr 09:38: daily. [facility] 49 [facility] Branch mirtazapine 2020-0 Yes 15mg Take 15 mg [facility] 15 mg 7-14 by mouth ity of tablet 09:38: at [place] [address] bedtime. [facility] mesalamine 2020-0 Yes 1.5g Take 1.5 g U nivers 0.375 gram 7-14 by mouth ity o f 24 hr 09:38: daily. [facility] 49 [facility] Branch mirtazapine 2020-0 Yes 15mg Take 15 mg [facility] 15 mg 7-14 by mouth ity of tablet 09:38: at [place] [address] bedtime. [facility] mesalamine 2020-0 Yes 1.5g Take 1.5 g U nivers 0.375 gram 7-14 by mouth ity o f 24 hr 09:38: daily. [facility] 49 [facility] Branch mirtazapine 2020-0 Yes 15mg Take 15 mg [facility] 15 mg 7-14 by mouth ity of tablet 09:38: at [place] [address] bedtime. Medical [facility] mesalamine 2020-0 Yes 1.5g Take 1.5 g U nivers 0.375 gram 7-14 by mouth ity o f 24 hr 09:38: daily. [facility] 49 [facility] Branch mirtazapine 2020-0 Yes 15mg Take 15 mg [facility] 15 mg 7-14 by mouth ity of tablet 09:38: at [place] [address] bedtime. Medical Branch mesalamine 2020-0 Yes 1.5g Take 1.5 g U nivers 0.375 gram 7-14 by mouth ity o f 24 hr 09:38: daily. [facility] 49 [facility] Branch mirtazapine 2020-0 Yes 15mg Take 15 mg [facility] 15 mg 7-14 by mouth ity of tablet 09:38: at [place] [address] bedtime. Medical [place] mesalamine 2020-0 Yes 1.5g Take 1.5 g U nivers 0.375 gram 7-14 by mouth ity o f 24 hr 09:38: daily. [place] capsule 49 [facility] mirtazapine 2020-0 Yes 15mg Take 15 mg [facility] 15 mg 7-14 by mouth ity of tablet 09:38: at [place] [address] bedtime. Medical [place] mesalamine 2020-0 Yes 1.5g Take 1.5 g U nivers 0.375 gram 7-14 by mouth ity o f 24 hr 09:38: daily. [facility] 49 Medical [place] mirtazapine 2020-0 Yes 15mg Take 15 mg [facility] 15 mg 7-14 by mouth ity of tablet 09:38: at [place] [address] bedtime. [facility] mesalamine 2020-0 Yes 1.5g Take 1.5 g U nivers 0.375 gram 7-14 by mouth ity o f 24 hr 09:38: daily. [facility] 49 [facility] mirtazapine 2020-0 Yes 15mg Take 15 mg [facility] 15 mg 7-14 by mouth ity of tablet 09:38: at [place] [address] bedtime. [facility] mesalamine 2020-0 Yes 1.5g Take 1.5 g U nivers 0.375 gram 7-14 by mouth ity o f 24 hr 09:38: daily. [facility] 49 [facility] mirtazapine 2020-0 Yes 15mg Take 15 mg [facility] 15 mg 7-14 by mouth ity of tablet 09:38: at [place] [address] bedtime. [facility] mesalamine 2020-0 Yes 1.5g Take 1.5 g U nivers 0.375 gram 7-14 by mouth ity o f 24 hr 09:38: daily. [address] predniSONE 2020-0 Yes 10mg Take 10 mg U nivers 10 mg 6-22 by mouth ity of tablet 00:00: daily. [address] predniSONE 2020-0 Yes 10mg Take 10 mg U nivers 10 mg 6-22 by mouth ity of tablet 00:00: daily. [place] [facility] predniSONE 2020-0 Yes 10mg Take 10 mg U nivers 10 mg 6-22 by mouth ity of tablet 00:00: daily. [address] predniSONE 2021-0 Yes 10mg Take 10 mg U nivers 10 mg 6-22 by mouth ity of tablet 00:00: daily. [place] [facility] Branch predniSONE 2021-0 Yes 10mg Take 10 mg U nivers 10 mg 6-22 by mouth ity of tablet 00:00: daily. [place] [facility] predniSONE 2021-0 Yes 10mg Take 10 mg U nivers 10 mg 6-22 by mouth ity of tablet 00:00: daily. [place] [facility] predniSONE 2021-0 Yes 10mg Take 10 mg U nivers 10 mg 6-22 by mouth ity of tablet 00:00: daily. [place] [facility] predniSONE 2021-0 Yes 10mg Take 10 mg U nivers 10 mg 6-22 by mouth ity of tablet 00:00: daily. [place] [facility] predniSONE 2021-0 Yes 10mg Take 10 mg U nivers 10 mg 6-22 by mouth ity of tablet 00:00: daily. [place] [facility] predniSONE 2021-0 Yes 10mg Take 10 mg U nivers 10 mg 6-22 by mouth ity of tablet 00:00: daily. [place] [facility] predniSONE 2021-0 Yes 10mg Take 10 mg U nivers 10 mg 6-22 by mouth ity of tablet 00:00: daily. [place] [facility] predniSONE 2021-0 Yes 10mg Take 10 mg U nivers 10 mg 6-22 by mouth ity of tablet 00:00: daily. [address] predniSONE 2021-0 Yes 10mg Take 10 mg U nivers 10 mg 6-22 by mouth ity of tablet 00:00: daily. [place] [facility] predniSONE 2021-0 Yes 10mg Take 10 mg U nivers 10 mg 6-22 by mouth ity of tablet 00:00: daily. [address] predniSONE 2021-0 Yes 10mg Take 10 mg U nivers 10 mg 6-22 by mouth ity of tablet 00:00: daily. [address] predniSONE 2021-0 Yes 10mg Take 10 mg U nivers 10 mg 6-22 by mouth ity of tablet 00:00: daily. [address] predniSONE 2021-0 Yes 10mg Take 10 mg U nivers 10 mg 6-22 by mouth ity of tablet 00:00: daily. [address] predniSONE 2021-0 Yes 10mg Take 10 mg U nivers 10 mg 6-22 by mouth ity of tablet 00:00: daily. [place] [facility] predniSONE 2021-0 Yes 10mg Take 10 mg U nivers 10 mg 6-22 by mouth ity of tablet 00:00: daily. [place] [facility] predniSONE 2021-0 Yes 10mg Take 10 mg U nivers 10 mg 6-22 by mouth ity of tablet 00:00: daily. [place] [facility] predniSONE 2021-0 Yes 10mg Take 10 mg U nivers 10 mg 6-22 by mouth ity of tablet 00:00: daily. [place] [facility] predniSONE 2021-0 Yes 10mg Take 10 mg U nivers 10 mg 6-22 by mouth ity of tablet 00:00: daily. [place] [facility] predniSONE 2021-0 Yes 10mg Take 10 mg U nivers 10 mg 6-22 by mouth ity of tablet 00:00: daily. [address] predniSONE 2021-0 Yes 10mg Take 10 mg U nivers 10 mg 6-22 by mouth ity of tablet 00:00: daily. [place] [facility] predniSONE 2021-0 Yes 10mg Take 10 mg U nivers 10 mg 6-22 by mouth ity of tablet 00:00: daily. [place] [facility] predniSONE 2021-0 Yes 10mg Take 10 mg U nivers 10 mg 6-22 by mouth ity of tablet 00:00: daily. [place] [facility] predniSONE 2021-0 Yes 10mg Take 10 mg U nivers 10 mg 6-22 by mouth ity of tablet 00:00: daily. [address] predniSONE 2021-0 Yes 10mg Take 10 mg U nivers 10 mg 6-22 by mouth ity of tablet 00:00: daily. [place] [facility] predniSONE 2021-0 Yes 10mg Take 10 mg U nivers 10 mg 6-22 by mouth ity of tablet 00:00: daily. [address] predniSONE 2021-0 Yes 10mg Take 10 mg U nivers 10 mg 6-22 by mouth ity of tablet 00:00: daily. [address] predniSONE 2021-0 Yes 10mg Take 10 mg U nivers 10 mg 6-22 by mouth ity of tablet 00:00: daily. [address] predniSONE 2021-0 Yes 10mg Take 10 mg U nivers 10 mg 6-22 by mouth ity of tablet 00:00: daily. [place] [facility] predniSONE 2021-0 Yes 10mg Take 10 mg U nivers 10 mg 6-22 by mouth ity of tablet 00:00: daily. [place] [facility] Branch predniSONE 2021-0 Yes 10mg Take 10 mg U nivers 10 mg 6-22 by mouth ity of tablet 00:00: daily. [place] [facility] predniSONE 2021-0 Yes 10mg Take 10 mg U nivers 10 mg 6-22 by mouth ity of tablet 00:00: daily. [place] [facility] predniSONE 2021-0 Yes 10mg Take 10 mg U nivers 10 mg 6-22 by mouth ity of tablet 00:00: daily. [place] [facility] predniSONE 2021-0 Yes 10mg Take 10 mg U nivers 10 mg 6-22 by mouth ity of tablet 00:00: daily. [place] [facility] predniSONE 2021-0 Yes 10mg Take 10 mg U nivers 10 mg 6-22 by mouth ity of tablet 00:00: daily. [place] [facility] predniSONE 2021-0 Yes 10mg Take 10 mg U nivers 10 mg 6-22 by mouth ity of tablet 00:00: daily. [place] [facility] predniSONE 2021-0 Yes 10mg Take 10 mg U nivers 10 mg 6-22 by mouth ity of tablet 00:00: daily. [place] [facility] predniSONE 2021-0 Yes 10mg Take 10 mg U nivers 10 mg 6-22 by mouth ity of tablet 00:00: daily. [place] [facility] predniSONE 2021-0 Yes 10mg Take 10 mg U nivers 10 mg 6-22 by mouth ity of tablet 00:00: daily. [place] [facility] predniSONE 2021-0 Yes 10mg Take 10 mg U nivers 10 mg 6-22 by mouth ity of tablet 00:00: daily. [place] [facility] predniSONE 2021-0 Yes 10mg Take 10 mg U nivers 10 mg 6-22 by mouth ity of tablet 00:00: daily. [place] [facility] predniSONE 2021-0 Yes 10mg Take 10 mg U nivers 10 mg 6-22 by mouth ity of tablet 00:00: daily. [address] predniSONE 2021-0 Yes 10mg Take 10 mg U nivers 10 mg 6-22 by mouth ity of tablet 00:00: daily. [address] predniSONE 2021-0 Yes 10mg Take 10 mg U nivers 10 mg 6-22 by mouth ity of tablet 00:00: daily. [place] [facility] predniSONE 2021-0 Yes 10mg Take 10 mg U nivers 10 mg 6-22 by mouth ity of tablet 00:00: daily. [address] predniSONE 2021-0 Yes 10mg Take 10 mg U nivers 10 mg 6-22 by mouth ity of tablet 00:00: daily. [place] [facility] predniSONE 2021-0 Yes 10mg Take 10 mg U nivers 10 mg 6-22 by mouth ity of tablet 00:00: daily. [place] [facility] predniSONE 2021-0 Yes 10mg Take 10 mg U nivers 10 mg 6-22 by mouth ity of tablet 00:00: daily. [address] predniSONE 2021-0 Yes 10mg Take 10 mg U nivers 10 mg 6-22 by mouth ity of tablet 00:00: daily. [address] predniSONE 2021-0 Yes 10mg Take 10 mg U nivers 10 mg 6-22 by mouth ity of tablet 00:00: daily. [address] spironolact 2021-0 Yes 25mg Take 25 mg [facility] one 25 mg 6-08 by mouth ity of tablet 00:00: daily. [address] spironolact 2021-0 Yes 25mg Take 25 mg [facility] one 25 mg 6-08 by mouth ity of tablet 00:00: daily. [address] spironolact 2021-0 Yes 25mg Take 25 mg [facility] one 25 mg 6-08 by mouth ity of tablet 00:00: daily. [place] [facility] spironolact 2021-0 Yes 25mg Take 25 mg [facility] one 25 mg 6-08 by mouth ity of tablet 00:00: daily. [address] spironolact 2021-0 Yes 25mg Take 25 mg [facility] one 25 mg 6-08 by mouth ity of tablet 00:00: daily. [address] spironolact 2021-0 Yes 25mg Take 25 mg [facility] one 25 mg 6-08 by mouth ity of tablet 00:00: daily. [address] spironolact 2021-0 Yes 25mg Take 25 mg [facility] one 25 mg 6-08 by mouth ity of tablet 00:00: daily. [facility] spironolact 2020-0 Yes 25mg Take 25 mg [facility] one 25 mg 6-08 by mouth ity of tablet 00:00: daily. [facility] spironolact 2020-0 Yes 25mg Take 25 mg [facility] one 25 mg 6-08 by mouth ity of tablet 00:00: daily. [place] [facility] spironolact 2020-0 Yes 25mg Take 25 mg [facility] one 25 mg 6-08 by mouth ity of tablet 00:00: daily. [facility] spironolact 2020-0 Yes 25mg Take 25 mg [facility] one 25 mg 6-08 by mouth ity of tablet 00:00: daily. [place] [facility] spironolact 2020-0 Yes 25mg Take 25 mg [facility] one 25 mg 6-08 by mouth ity of tablet 00:00: daily. [place] [facility] spironolact 2020-0 Yes 25mg Take 25 mg [facility] one 25 mg 6-08 by mouth ity of tablet 00:00: daily. [place] [facility] spironolact 2020-0 Yes 25mg Take 25 mg [facility] one 25 mg 6-08 by mouth ity of tablet 00:00: daily. [place] [facility] spironolact 2020-0 Yes 25mg Take 25 mg [facility] one 25 mg 6-08 by mouth ity of tablet 00:00: daily. [place] [facility] spironolact 2020-0 Yes 25mg Take 25 mg [facility] one 25 mg 6-08 by mouth ity of tablet 00:00: daily. [place] [facility] spironolact 2020-0 Yes 25mg Take 25 mg [facility] one 25 mg 6-08 by mouth ity of tablet 00:00: daily. [place] [facility] spironolact 2020-0 Yes 25mg Take 25 mg [facility] one 25 mg 6-08 by mouth ity of tablet 00:00: daily. [place] [facility] spironolact 2020-0 Yes 25mg Take 25 mg [facility] one 25 mg 6-08 by mouth ity of tablet 00:00: daily. [place] [facility] spironolact 2020-0 Yes 25mg Take 25 mg [facility] one 25 mg 6-08 by mouth ity of tablet 00:00: daily. [place] [facility] spironolact 2020-0 Yes 25mg Take 25 mg [facility] one 25 mg 6-08 by mouth ity of tablet 00:00: daily. [place] [facility] spironolact 2020-0 Yes 25mg Take 25 mg [facility] one 25 mg 6-08 by mouth ity of tablet 00:00: daily. [place] [facility] spironolact 2020-0 Yes 25mg Take 25 mg [facility] one 25 mg 6-08 by mouth ity of tablet 00:00: daily. [place] [facility] spironolact 2020-0 Yes 25mg Take 25 mg [facility] one 25 mg 6-08 by mouth ity of tablet 00:00: daily. [place] [facility] spironolact 2020-0 Yes 25mg Take 25 mg [facility] one 25 mg 6-08 by mouth ity of tablet 00:00: daily. [place] [facility] spironolact 2020-0 Yes 25mg Take 25 mg [facility] one 25 mg 6-08 by mouth ity of tablet 00:00: daily. [place] [facility] spironolact 2020-0 Yes 25mg Take 25 mg [facility] one 25 mg 6-08 by mouth ity of tablet 00:00: daily. [place] [facility] spironolact 2020-0 Yes 25mg Take 25 mg [facility] one 25 mg 6-08 by mouth ity of tablet 00:00: daily. [place] [facility] spironolact 2020-0 Yes 25mg Take 25 mg [facility] one 25 mg 6-08 by mouth ity of tablet 00:00: daily. [place] [facility] spironolact 2020-0 Yes 25mg Take 25 mg [facility] one 25 mg 6-08 by mouth ity of tablet 00:00: daily. [place] [facility] spironolact 2020-0 Yes 25mg Take 25 mg [facility] one 25 mg 6-08 by mouth ity of tablet 00:00: daily. [place] [facility] spironolact 2020-0 Yes 25mg Take 25 mg [facility] one 25 mg 6-08 by mouth ity of tablet 00:00: daily. [place] [facility] spironolact 1-0 Yes 25mg Take 25 mg [facility] one 25 mg 6-08 by mouth ity of tablet 00:00: daily. [place] [facility] spironolact 2020-0 Yes 25mg Take 25 mg [facility] one 25 mg 6-08 by mouth ity of tablet 00:00: daily. [place] [facility] spironolact 2020-0 Yes 25mg Take 25 mg [facility] one 25 mg 6-08 by mouth ity of tablet 00:00: daily. [place] [facility] spironolact 2020-0 Yes 25mg Take 25 mg [facility] one 25 mg 6-08 by mouth ity of tablet 00:00: daily. [place] [facility] spironolact 2020-0 Yes 25mg Take 25 mg [facility] one 25 mg 6-08 by mouth ity of tablet 00:00: daily. [place] [facility] spironolact 2020-0 Yes 25mg Take 25 mg [facility] one 25 mg 6-08 by mouth ity of tablet 00:00: daily. [place] [facility] spironolact 2020-0 Yes 25mg Take 25 mg [facility] one 25 mg 6-08 by mouth ity of tablet 00:00: daily. [place] [facility] spironolact 2020-0 Yes 25mg Take 25 mg [facility] one 25 mg 6-08 by mouth ity of tablet 00:00: daily. [place] [facility] spironolact 2020-0 Yes 25mg Take 25 mg [facility] one 25 mg 6-08 by mouth ity of tablet 00:00: daily. [place] [facility] spironolact 2020-0 Yes 25mg Take 25 mg [facility] one 25 mg 6-08 by mouth ity of tablet 00:00: daily. [place] [facility] spironolact 2020-0 Yes 25mg Take 25 mg [facility] one 25 mg 6-08 by mouth ity of tablet 00:00: daily. [place] [facility] spironolact 2020-0 Yes 25mg Take 25 mg [facility] one 25 mg 6-08 by mouth ity of tablet 00:00: daily. [place] [facility] spironolact 2020-0 Yes 25mg Take 25 mg [facility] one 25 mg 6-08 by mouth ity of tablet 00:00: daily. [place] [facility] spironolact 2020-0 Yes 25mg Take 25 mg [facility] one 25 mg 6-08 by mouth ity of tablet 00:00: daily. [place] [facility] spironolact 2020-0 Yes 25mg Take 25 mg [facility] one 25 mg 6-08 by mouth ity of tablet 00:00: daily. [place] [facility] spironolact 2021-0 Yes 25mg Take 25 mg [facility] one 25 mg 6-08 by mouth ity of tablet 00:00: daily. [place] [facility] spironolact 2020-0 Yes 25mg Take 25 mg [facility] one 25 mg 6-08 by mouth ity of tablet 00:00: daily. [place] [facility] spironolact 202-0 Yes 25mg Take 25 mg [facility] one 25 mg 6-08 by mouth ity of tablet 00:00: daily. [place] [facility] spironolact 2020-0 Yes 25mg Take 25 mg [facility] one 25 mg 6-08 by mouth ity of tablet 00:00: daily. [place] [facility] spironolact 2020-0 Yes 25mg Take 25 mg [facility] one 25 mg 6-08 by mouth ity of tablet 00:00: daily. [place] [facility] spironolact 2020-0 Yes 25mg Take 25 mg [facility] one 25 mg 6-08 by mouth ity of tablet 00:00: daily. [place] [facility] neomycin-po 2020-0 Yes [id number] 3[drp] Place 3 [facility] lymyxin-hyd 4-14 Drops in ity of rocortisone 00:00: left ear 4 [place] 3.5-,000- 00 (four) Medica l 1 times Branch mg/mL-unit/ daily. mL-% otic susp neomycin-po 2020-0 Yes [id number] 3[drp] Place 3 [facility] lymyxin-hyd 4-14 Drops in ity of rocortisone 00:00: left ear 4 [place] 3.5-,000- 00 (four) Medica l 1 times Branch mg/mL-unit/ daily. mL-% otic susp neomycin-po 2021-0 Yes [id number] 3[drp] Place 3 [facility] lymyxin-hyd 4-14 Drops in ity of rocortisone 00:00: left ear 4 [place] 3.5-,000- 00 (four) Medica l 1 times Branch mg/mL-unit/ daily. mL-% otic susp neomycin-po 2021-0 Yes [id number] 3[drp] Place 3 [facility] lymyxin-hyd 4-14 Drops in ity of rocortisone 00:00: left ear 4 [place] 3.5-,000- 00 (four) Medica l 1 times Branch mg/mL-unit/ daily. mL-% otic susp neomycin-po 2021-0 Yes [id number] 3[drp] Place 3 [facility] lymyxin-hyd 4-14 Drops in ity of rocortisone 00:00: left ear 4 [place] 3.5-10,000- 00 (four) Medica l 1 times Branch mg/mL-unit/ daily. mL-% otic susp neomycin-po 2021-0 Yes [id number] 3[drp] Place 3 [facility] lymyxin-hyd 4-14 Drops in ity of rocortisone 00:00: left ear 4 [place] 3.5-10,000- 00 (four) Medica l 1 times Branch mg/mL-unit/ daily. mL-% otic susp neomycin-po 2021-0 Yes [id number] 3[drp] Place 3 [facility] lymyxin-hyd 4-14 Drops in ity of rocortisone 00:00: left ear 4 [place] 3.5-000- (four) Medica l 1 times Branch mg/mL-unit/ daily. mL-% otic susp neomycin-po 2021-0 Yes [id number] 3[drp] Place 3 [facility] lymyxin-hyd 4-14 Drops in ity of rocortisone 00:00: left ear 4 [place] 3.5-000 (four) Medica l 1 times Branch mg/mL-unit/ daily. mL-% otic susp neomycin-po 2021-0 Yes [id number] 3[drp] Place 3 [facility] lymyxin-hyd 4-14 Drops in ity of rocortisone 00:00: left ear 4 [place] 3.5-000 (four) Medica l 1 times Branch mg/mL-unit/ daily. mL-% otic susp neomycin-po 2021-0 Yes [id number] 3[drp] Place 3 [facility] lymyxin-hyd 4-14 Drops in ity of rocortisone 00:00: left ear 4 [place] 3.5-10,000 (four) Medica l 1 times Branch mg/mL-unit/ daily. mL-% otic susp neomycin-po 2021-0 Yes [id number] 3[drp] Place 3 [facility] lymyxin-hyd 4-14 Drops in ity of rocortisone 00:00: left ear 4 [place] 3.5-10,000- 00 (four) Medica l 1 times Branch mg/mL-unit/ daily. mL-% otic susp neomycin-po 2021-0 Yes [id number] 3[drp] Place 3 [facility] lymyxin-hyd 4-14 Drops in ity of rocortisone 00:00: left ear 4 [place] 3.5-000- 00 (four) Medica l 1 times Branch mg/mL-unit/ daily. mL-% otic susp neomycin-po 2021-0 Yes [id number] 3[drp] Place 3 [facility] lymyxin-hyd 4-14 Drops in ity of rocortisone 00:00: left ear 4 [place] 3.5- (four) Medica l 1 times Branch mg/mL-unit/ daily. mL-% otic susp neomycin-po 2021-0 Yes [id number] 3[drp] Place 3 [facility] lymyxin-hyd 4-14 Drops in ity of rocortisone 00:00: left ear 4 [place] 3.5- (four) Medica l 1 times Branch mg/mL-unit/ daily. mL-% otic susp neomycin-po 2021-0 Yes [id number] 3[drp] Place 3 [facility] lymyxin-hyd 4-14 Drops in ity of rocortisone 00:00: left ear 4 [place] 3.5- (four) Medica l 1 times Branch mg/mL-unit/ daily. mL-% otic susp neomycin-po 2021-0 Yes [id number] 3[drp] Place 3 [facility] lymyxin-hyd 4-14 Drops in ity of rocortisone 00:00: left ear 4 [place] 3.5-10000 (four) Medica l 1 times Branch mg/mL-unit/ daily. mL-% otic susp neomycin-po 2021-0 Yes [id number] 3[drp] Place 3 [facility] lymyxin-hyd 4-14 Drops in ity of rocortisone 00:00: left ear 4 [place] 3.5-000- (four) Medica [facility] 1 times Branch mg/mL-unit/ daily. mL-% otic susp neomycin-po 2021-0 Yes [id number] 3[drp] Place 3 [facility] lymyxin-hyd 4-14 Drops in ity of rocortisone 00:00: left ear 4 [place] 3.5-10,000- 00 (four) Medica l 1 times Branch mg/mL-unit/ daily. mL-% otic susp neomycin-po 2021-0 Yes [id number] 3[drp] Place 3 [facility] lymyxin-hyd 4-14 Drops in ity of rocortisone 00:00: left ear 4 [place] 3.5-10,000- 00 (four) Medica [facility] 1 times Branch mg/mL-unit/ daily. mL-% otic susp neomycin-po 2021-0 Yes [id number] 3[drp] Place 3 [facility] lymyxin-hyd 4-14 Drops in ity of rocortisone 00:00: left ear 4 [place] 3.5-10,000- 00 (four) Medica [facility] 1 times Branch mg/mL-unit/ daily. mL-% otic susp neomycin-po 2021-0 Yes [id number] 3[drp] Place 3 [facility] lymyxin-hyd 4-14 Drops in ity of rocortisone 00:00: left ear 4 [place] 3.5-10,000- 00 (four) Medica [facility] 1 times Branch mg/mL-unit/ daily. mL-% otic susp neomycin-po 2021-0 Yes [id number] 3[drp] Place 3 [facility] lymyxin-hyd 4-14 Drops in ity of rocortisone 00:00: left ear 4 [place] 3.5-10,000- 00 (four) Medica [facility] 1 times Branch mg/mL-unit/ daily. mL-% otic susp neomycin-po 2021-0 Yes [id number] 3[drp] Place 3 [facility] lymyxin-hyd 4-14 Drops in ity of rocortisone 00:00: left ear 4 [place] 3.5-10,000- 00 (four) Medica [facility] 1 times Branch mg/mL-unit/ daily. mL-% otic susp neomycin-po 2021-0 Yes [id number] 3[drp] Place 3 [facility] lymyxin-hyd 4-14 Drops in ity of rocortisone 00:00: left ear 4 [place] 3.5-10,000- 00 (four) Med[facility] 1 times Branch mg/mL-unit/ daily. mL-% otic susp neomycin-po 2021-0 Yes [id number] 3[drp] Place 3 [facility] lymyxin-hyd 4-14 Drops in ity of rocortisone 00:00: left ear 4 [place] 3.5-10,000- 00 (four) Medica [facility] 1 times Branch mg/mL-unit/ daily. mL-% otic susp neomycin-po 2021-0 Yes [id number] 3[drp] Place 3 [facility] lymyxin-hyd 4-14 Drops in ity of rocortisone 00:00: left ear 4 [place] 3.5-10,000- 00 (four) Medica [facility] 1 times Branch mg/mL-unit/ daily. mL-% otic susp neomycin-po 2021-0 Yes [id number] 3[drp] Place 3 [facility] lymyxin-hyd 4-14 Drops in ity of rocortisone 00:00: left ear 4 [place] 3.5-10,000- 00 (four) Medica [facility] 1 times Branch mg/mL-unit/ daily. mL-% otic susp neomycin-po 2021-0 Yes [id number] 3[drp] Place 3 [facility] lymyxin-hyd 4-14 Drops in ity of rocortisone 00:00: left ear 4 [place] 3.5-10,000- 00 (four) Medica [facility] 1 times Branch mg/mL-unit/ daily. mL-% otic susp neomycin-po 2021-0 Yes [id number] 3[drp] Place 3 [facility] lymyxin-hyd 4-14 Drops in ity of rocortisone 00:00: left ear 4 [place] 3.5-10,000- 00 (four) Medica [facility] 1 times Branch mg/mL-unit/ daily. mL-% otic susp neomycin-po 2021-0 Yes [id number] 3[drp] Place 3 [facility] lymyxin-hyd 4-14 Drops in ity of rocortisone 00:00: left ear 4 [place] 3.5-10,000- 00 (four) Medica [facility] 1 times Branch mg/mL-unit/ daily. mL-% otic susp neomycin-po 2021-0 Yes [id number] 3[drp] Place 3 [facility] lymyxin-hyd 4-14 Drops in ity of rocortisone 00:00: left ear 4 [place] 3.5-10,000- 00 (four) Medica [facility] 1 times Branch mg/mL-unit/ daily. mL-% otic susp neomycin-po 2021-0 Yes [id number] 3[drp] Place 3 [facility] lymyxin-hyd 4-14 Drops in ity of rocortisone 00:00: left ear 4 [place] 3.5-,000- 00 (four) Medica l 1 times Branch mg/mL-unit/ daily. mL-% otic susp neomycin-po 2021-0 Yes [id number] 3[drp] Place 3 [facility] lymyxin-hyd 4-14 Drops in ity of rocortisone 00:00: left ear 4 [place] 3.5-000- (four) Medica l 1 times Branch mg/mL-unit/ daily. mL-% otic susp neomycin-po 2021-0 Yes [id number] 3[drp] Place 3 [facility] lymyxin-hyd 4-14 Drops in ity of rocortisone 00:00: left ear 4 [place] 3.5-000- 00 (four) Medica [facility] 1 times Branch mg/mL-unit/ daily. mL-% otic susp neomycin-po 2021-0 Yes [id number] 3[drp] Place 3 [facility] lymyxin-hyd 4-14 Drops in ity of rocortisone 00:00: left ear 4 [place] 3.5-000 00 (four) Medica l 1 times Branch mg/mL-unit/ daily. mL-% otic susp neomycin-po 2021-0 Yes [id number] 3[drp] Place 3 [facility] lymyxin-hyd 4-14 Drops in ity of rocortisone 00:00: left ear 4 [place] 3.5-000- (four) Medica l 1 times Branch mg/mL-unit/ daily. mL-% otic susp neomycin-po 2021-0 Yes [id number] 3[drp] Place 3 [facility] lymyxin-hyd 4-14 Drops in ity of rocortisone 00:00: left ear 4 [place] 3.5-10000 00 (four) Medica l 1 times Branch mg/mL-unit/ daily. mL-% otic susp neomycin-po 2021-0 2022- No [id number] 3[drp] Place 3 [facility] lymyxin-hyd 4-14 12-21 Drops in ity of rocortisone 00:00: 00:00 left ear 4 [place] 3.5-10,000- 00 :00 (four) Medica l 1 times Branch mg/mL-unit/ daily. mL-% otic susp neomycin-po 2021- No [id number] 3[drp] Place 3 [facility] lymyxin-hyd 4-14 12-21 Drops in ity of rocortisone 00:00: 00:00 left ear 4 [place] 3.5-10,000- 00 :00 (four) Medica l 1 times Branch mg/mL-unit/ daily. mL-% otic susp TRELEGY 2020- Yes INHALE 1 Univer s [...] DsDv 00 EVERY DAY [facility] [place] TRELEGY 2019- Yes INHALE 1 Univer s ELLIPTA 2-24 PUFF BY ity of 100-62.5-25 00:00: MOUTH [place] mcg DsDv 00 [facility] Univer s ELLIPTA 2-24 PUFF BY ity of 100-62.5-25 00:00: MOUTH [place] mcg DsDv 00 EVERY DAY [facility] [place] TRELEGY 2019- Yes INHALE 1 Univer s ELLIPTA 2-24 PUFF BY ity of 100-62.5-25 00:00: MOUTH [place] mcg DsDv 00 [facility] INHALE 1 Univer s ELLIPTA 2-24 PUFF BY ity of 100-62.5-25 00:00: MOUTH [place] mcg DsDv 00 [facility] INHALE 1 Univer s ELLIPTA 2-24 PUFF BY ity of 100-62.5-25 00:00: MOUTH [place] mcg DsDv 00 [facility] DAY [facility] INHALE 1 Univer s ELLIPTA 2-24 PUFF BY ity of 100-62.5-25 00:00: MOUTH [place] mcg DsDv 00 [facility] DAY [facility] INHALE 1 Univer s ELLIPTA 2-24 PUFF BY ity of 100-62.5-25 00:00: MOUTH [place] mcg DsDv 00 EVERY DAY [facility] [place] TRELEGY 2019- Yes INHALE 1 Univer s ELLIPTA 2-24 PUFF BY ity of 100-62.5-25 00:00: MOUTH [place] mcg DsDv 00 EVERY DAY [facility] [place] TRELEGY 2019- Yes INHALE 1 Univer s ELLIPTA 2-24 PUFF BY ity of 100-62.5-25 00:00: MOUTH [place] mcg DsDv 00 EVERY DAY [facility] [place] TRELEGY 2020- Yes INHALE 1 Univer s [...] DsDv 00 EVERY DAY [facility] [place] TRELEGY 2020- Yes INHALE 1 Univer s ELLIPTA 2-24 PUFF BY ity of 100-62.5-25 00:00: MOUTH [place] mcg DsDv 00 EVERY DAY Medica [facility] Branch TRELEGY 2019- Yes INHALE 1 Univer s ELLIPTA 2-24 PUFF BY ity of 100-62.5-25 00:00: MOUTH [place] mcg DsDv 00 EVERY DAY [facility] [place] TRELEGY 2019- Yes INHALE 1 Univer s ELLIPTA 2-24 PUFF BY ity of 100-62.5-25 00:00: MOUTH [place] mcg DsDv 00 EVERY DAY [facility] [place] TRELEGY 2020- Yes INHALE 1 Univer s ELLIPTA 2-24 PUFF BY ity of 100-62.5-25 00:00: MOUTH [place] mcg DsDv 00 EVERY DAY [facility] [place] TRELEGY 2020- Yes INHALE 1 Univer s ELLIPTA 2-24 PUFF BY ity of 100-62.5-25 00:00: MOUTH [place] mcg DsDv 00 EVERY DAY [facility] [place] TRELEGY 2019- Yes INHALE 1 Univer s [...] DsDv 00 EVERY DAY [facility] [place] TRELEGY 2020- Yes INHALE 1 Univer s ELLIPTA 2-24 PUFF BY ity of 100-62.5-25 00:00: MOUTH [place] mcg DsDv 00 EVERY DAY [facility] [place] TRELEGY 2020- Yes INHALE 1 Univer s ELLIPTA 2-24 PUFF BY ity of 100-62.5-25 00:00: MOUTH [place] mcg DsDv 00 EVERY DAY [facility] TRELEGY 2019- Yes INHALE 1 Univer s ELLIPTA 2-24 PUFF BY ity of 100-62.5-25 00:00: MOUTH [place] mcg DsDv 00 EVERY DAY [facility] TRELEGY 2019- Yes INHALE 1 Univer s ELLIPTA 2-24 PUFF BY ity of 100-62.5-25 00:00: MOUTH [place] mcg DsDv 00 EVERY DAY [facility] TRELEGY 2019- Yes INHALE 1 Univer s ELLIPTA 2-24 PUFF BY ity of 100-62.5-25 00:00: MOUTH [place] mcg DsDv 00 [facility] Univer s ELLIPTA 2-24 PUFF BY ity of 100-62.5-25 00:00: MOUTH [place] mcg DsDv 00 [facility] INHALE 1 Univer s ELLIPTA 2-24 PUFF BY ity of 100-62.5-25 00:00: MOUTH [place] mcg DsDv 00 [facility] DAY [facility] INHALE 1 Univer s ELLIPTA 2-24 PUFF BY ity of 100-62.5-25 00:00: MOUTH [place] mcg DsDv 00 [facility] INHALE 1 Univer s ELLIPTA 2-24 PUFF BY ity of 100-62.5-25 00:00: MOUTH [place] mcg DsDv 00 EVERY DAY [facility] TRELEGY 2019- Yes INHALE 1 Univer s ELLIPTA 2-24 PUFF BY ity of 100-62.5-25 00:00: MOUTH [place] mcg DsDv 00 EVERY DAY [facility] TRELEGY 2020- Yes INHALE 1 Univer s ELLIPTA 2-24 PUFF BY ity of 100-62.5-25 00:00: MOUTH [place] mcg DsDv 00 EVERY DAY [facility] TRELEGY 2020- Yes INHALE 1 Univer s [...] mouth ity of 00:00: at bedtime [place] 00 as needed. [facility] zolpidem 10 2019-11 Yes 10mg Take 10 mg [facility] mg tablet 2-14 by mouth ity of 00:00: at bedtime [place] 00 as needed. Medical [facility] zolpidem 10 2019-11 Yes 10mg Take 10 mg [facility] mg tablet 2-14 by mouth ity of 00:00: at bedtime [place] 00 as needed. Medical [facility] zolpidem 10 2019-11 Yes 10mg Take 10 mg [facility] mg tablet 2-14 by mouth ity of 00:00: at bedtime [place] 00 as needed. Medical Branch zolpidem 10 [...] mouth ity of 00:00: at bedtime [place] 00 as needed. Medical [facility] zolpidem 10 2019-11 Yes 10mg Take 10 mg [facility] mg tablet 2-14 by mouth ity of 00:00: at bedtime [place] 00 as needed. Medical Branch zolpidem 10 2019-11 Yes 10mg Take 10 mg [facility] mg tablet 2-14 by mouth ity of 00:00: at bedtime [place] 00 as needed. Medical [facility] zolpidem 10 2019-11 Yes 10mg Take 10 mg [facility] mg tablet 2-14 by mouth ity of 00:00: at bedtime [place] 00 as needed. Medical [facility] zolpidem 10 2019-11 Yes 10mg Take 10 mg [facility] mg tablet 2-14 by mouth ity of 00:00: at bedtime [place] 00 as needed. [facility] zolpidem 10 2019-11 Yes 10mg Take 10 mg [facility] mg tablet 2-14 by mouth ity of 00:00: at bedtime [place] 00 as needed. [facility] zolpidem 10 2019-11 Yes 10mg Take 10 mg [facility] mg tablet 2-14 by mouth ity of 00:00: at bedtime [place] 00 as needed. [facility] zolpidem 10 2019-11 Yes 10mg Take 10 mg [facility] mg tablet 2-14 by mouth ity of 00:00: at bedtime [place] 00 as needed. [facility] zolpidem 10 2019-11 Yes 10mg Take 10 mg [facility] mg tablet 2-14 by mouth ity of 00:00: at bedtime [place] 00 as needed. [facility] zolpidem 10 2019-11 Yes 10mg Take 10 mg [facility] mg tablet 2-14 by mouth ity of 00:00: at bedtime [place] 00 as needed. Medical Branch zolpidem 10 [...] mouth ity of 00:00: at bedtime [place] 00 as needed. [facility] zolpidem 10 2019-11 Yes 10mg Take 10 mg [facility] mg tablet 2-14 by mouth ity of 00:00: at bedtime [place] 00 as needed. [facility] zolpidem 10 2019-11 Yes 10mg Take 10 mg [facility] mg tablet 2-14 by mouth ity of 00:00: at bedtime [place] 00 as needed. [facility] zolpidem 10 2019-11 Yes 10mg Take 10 mg [facility] mg tablet 2-14 by mouth ity of 00:00: at bedtime [place] 00 as needed. [facility] zolpidem 10 2019-11 Yes 10mg Take 10 mg [facility] mg tablet 2-14 by mouth ity of 00:00: at bedtime [place] 00 as needed. [facility] zolpidem 10 2019-11 Yes 10mg Take 10 mg [facility] mg tablet 2-14 by mouth ity of 00:00: at bedtime [place] 00 as needed. [facility] zolpidem 10 2019-11 Yes 10mg Take 10 mg [facility] mg tablet 2-14 by mouth ity of 00:00: at bedtime [place] 00 as needed. [facility] zolpidem 10 2019-11 Yes 10mg Take 10 mg [facility] mg tablet 2-14 by mouth ity of 00:00: at bedtime [place] 00 as needed. [facility] zolpidem 10 [...] mouth ity of 00:00: at bedtime [place] 00 as needed. [facility] zolpidem 10 2019-11 Yes 10mg Take 10 mg [facility] mg tablet 2-14 by mouth ity of 00:00: at bedtime [place] 00 as needed. [facility] zolpidem 10 2019-11 Yes 10mg Take 10 mg [facility] mg tablet 2-14 by mouth ity of 00:00: at bedtime [place] 00 as needed. [facility] zolpidem 10 2019-11 Yes 10mg Take 10 mg [facility] mg tablet 2-14 by mouth ity of 00:00: at bedtime [place] 00 as needed. [facility] zolpidem 10 2019-11 Yes 10mg Take 10 mg [facility] mg tablet 2-14 by mouth ity of 00:00: at bedtime [place] 00 as needed. [facility] zolpidem 10 2019-11 Yes 10mg Take 10 mg [facility] mg tablet 2-14 by mouth ity of 00:00: at bedtime [place] 00 as needed. [facility] zolpidem 10 2019-11 Yes 10mg Take 10 mg [facility] mg tablet 2-14 by mouth ity of 00:00: at bedtime [place] 00 as needed. [facility] zolpidem 10 2019-11 Yes 10mg Take 10 mg [facility] mg tablet 2-14 by mouth ity of 00:00: at bedtime [place] 00 as needed. [facility] dicyclomine 2019-11 [...] tablet 1-12 D ity of 00:00: [place] [facility] MOTEGRITY 2020- Yes TK 1 T PO Uni vers tablet 1-12 D ity of 00:00: [place] [facility] MOTEGRITY 2020- Yes TK 1 T PO Uni vers tablet 1-12 D ity of 00:00: [place] [facility] MOTEGRITY 2020- Yes TK 1 T PO Uni vers tablet 1-12 D ity of 00:00: [place] [facility] MOTEGRITY 2020- Yes TK 1 T PO Uni vers tablet 1-12 D ity of 00:00: [place] [facility] MOTEGRITY 2020- Yes TK 1 T PO [facility] vers tablet 1-12 D ity of 00:00: [place] [facility] MOTEGRITY 2020- Yes TK 1 T PO [facility] vers tablet 1-12 D ity of 00:00: [place] [facility] MOTEGRITY 2020- Yes TK 1 T PO Uni vers tablet 1-12 D ity of 00:00: [place] [facility] MOTEGRITY 2020- Yes TK 1 T PO [facility] vers tablet 1-12 D ity of 00:00: [place] [facility] MOTEGRITY 2020- Yes TK 1 T PO [facility] vers tablet 1-12 D ity of 00:00: [place] [facility] MOTEGRITY 2020- Yes TK 1 T PO Uni vers tablet 1-12 D ity of 00:00: [place] [facility] MOTEGRITY 2020- Yes TK 1 T PO Uni vers tablet 1-12 D ity of 00:00: [place] [facility] MOTEGRITY 2020- Yes TK 1 T PO Uni vers tablet 1-12 D ity of 00:00: [place] [facility] MOTEGRITY 2020- Yes TK 1 T PO Uni vers tablet 1-12 D ity of 00:00: [place] [facility] MOTEGRITY 2019- Yes TK 1 T PO Uni vers tablet 1-12 D ity of 00:00: [address] MOTEGRITY 2020- Yes TK 1 T PO Uni vers tablet 1-12 D ity of 00:00: [place] [facility] MOTEGRITY 2020- Yes TK 1 T PO Uni vers tablet 1-12 D ity of 00:00: [address] MOTEGRITY 2020- Yes TK 1 T PO Uni vers tablet 1-12 D ity of 00:00: [place] [facility] MOTEGRITY 2020- Yes TK 1 T PO Uni vers tablet 1-12 D ity of 00:00: [place] [facility] MOTEGRITY 2020- Yes TK 1 T PO Uni vers tablet 1-12 D ity of 00:00: [place] [facility] MOTEGRITY 2020- Yes TK 1 T PO Uni vers tablet 1-12 D ity of 00:00: [place] [facility] MOTEGRITY 2020- Yes TK 1 T PO Uni vers tablet 1-12 D ity of 00:00: [place] [facility] MOTEGRITY 2020- Yes TK 1 T PO Uni vers tablet 1-12 D ity of 00:00: [place] 00 [facility] MOTEGRITY 2020- Yes TK 1 T PO Uni vers tablet 1-12 D ity of 00:00: [place] 00 [facility] MOTRITY 2020- Yes TK 1 T PO Uni vers tablet 1-12 D ity of 00:00: [address] MOTEGRITY 2020- Yes TK 1 T PO Uni vers tablet 1-12 D ity of 00:00: [place] [facility] MOTEGRITY 2020- Yes TK 1 T PO Uni vers tablet 1-12 D ity of 00:00: [place] 00 [facility] MOTEGRITY 2020- Yes TK 1 T PO Uni vers tablet 1-12 D ity of 00:00: [place] [facility] MOTEGRITY 2020- Yes TK 1 T PO Uni vers tablet 1-12 D ity of 00:00: [place] [facility] MOTEGRITY 2020- Yes TK 1 T PO Uni vers tablet 1-12 D ity of 00:00: [place] [facility] MOTEGRITY 2020- Yes TK 1 T PO Uni vers tablet 1-12 D ity of 00:00: [place] [facility] MOTEGRITY 2020- Yes TK 1 T PO Uni vers tablet 1-12 D ity of 00:00: [place] [facility] MOTEGRITY 2020- Yes TK 1 T PO Uni vers tablet 1-12 D ity of 00:00: [place] [facility] MOTEGRITY 2020- Yes TK 1 T PO Uni vers tablet 1-12 D ity of 00:00: [place] [facility] MOTEGRITY 2020- Yes TK 1 T PO Uni vers tablet 1-12 D ity of 00:00: [place] [facility] MOTEGRITY 2020- Yes TK 1 T PO Uni vers tablet 1-12 D ity of 00:00: [place] [facility] MOTEGRITY 2020- Yes TK 1 T PO Uni vers tablet 1-12 D ity of 00:00: [place] 00 [facility] MOTEGRITY 2020- Yes TK 1 T PO Uni vers tablet 1-12 D ity of 00:00: [place] [facility] MOTEGRITY 2020- Yes TK 1 T PO Uni vers tablet 1-12 D ity of 00:00: [place] [facility] MOTEGRITY 2020- Yes TK 1 T PO Uni vers tablet 1-12 D ity of 00:00: [place] 00 [facility] MOTEGRITY 2020- Yes TK 1 T PO Uni vers tablet 1-12 D ity of 00:00: [place] 00 [facility] MOTEGRITY 2020- Yes TK 1 T PO Uni vers tablet 1-12 D ity of 00:00: [place] 00 [facility] MOTEGRITY 2020- Yes TK 1 T PO Uni vers tablet 1-12 D ity of 00:00: [place] 00 [facility] MOTEGRITY 2020- Yes TK [...] 1-12 D ity of 00:00: Medical Branch ondansetron 2020- [...] 1-04 ity of 00:00: Medical Branch diclofenac 2020-1 Yes [id number] 75mg Take 1 [facility] 75 mg EC 0-08 tablet by ity of tablet 00:00: mouth 2 (two) Medical times Branch daily with meals. diclofenac 2020- Yes [id number] 75mg Take 1 [facility] 75 mg EC 0-08 tablet by ity of tablet 00:00: mouth 2 (two) Medical times Branch daily with meals. diclofenac 2020- Yes [id number] 75mg Take 1 [facility] 75 mg EC 0-08 tablet by ity of tablet 00:00: mouth 2 (two) Medical times Branch daily with meals. diclofenac 2020- Yes [id number] 75mg Take 1 [facility] 75 mg EC 0-08 tablet by ity of tablet 00:00: mouth 2 (two) Medical times Branch daily with meals. diclofenac 2020-1 Yes [id number] 75mg Take 1 [facility] 75 mg EC 0-08 tablet by ity of tablet 00:00: mouth (two) Medical times Branch daily with meals. diclofenac 2020-1 Yes [id number] 75mg Take 1 [facility] 75 mg EC 0-08 tablet by ity of tablet 00:00: mouth (two) Medical times Branch daily with meals. diclofenac 2020-1 Yes [id number] 75mg Take 1 [facility] 75 mg EC 0-08 tablet by ity of tablet 00:00: mouth (two) Medical times Branch daily with meals. diclofenac 2020-1 Yes [id number] 75mg Take 1 [facility] 75 mg EC 0-08 tablet by ity of tablet 00:00: mouth (two) Medical times Branch daily with meals. diclofenac 2020-1 Yes [id number] 75mg Take 1 [facility] 75 mg EC 0-08 tablet by ity of tablet 00:00: mouth (two) Medical times Branch daily with meals. diclofenac 2020-1 Yes [id number] 75mg Take 1 [facility] 75 mg EC 0-08 tablet by ity of tablet 00:00: mouth (two) Medical times Branch daily with meals. diclofenac 2019-1 Yes [id number] 75mg Take 1 [facility] 75 mg EC 0-08 tablet by ity of tablet 00:00: mouth (two) Medical times Branch daily with meals. diclofenac 2020-1 Yes [id number] 75mg Take 1 [facility] 75 mg EC 0-08 tablet by ity of tablet 00:00: mouth (two) Medical times Branch daily with meals. diclofenac 2020-1 Yes [id number] 75mg Take 1 [facility] 75 mg EC 0-08 tablet by ity of tablet 00:00: mouth (two) Medical times Branch daily with meals. diclofenac 2020-1 Yes [id number] 75mg Take 1 [facility] 75 mg EC 0-08 tablet by ity of tablet 00:00: mouth (two) Medical times Branch daily with meals. diclofenac 2020-1 Yes [id number] 75mg Take 1 [facility] 75 mg EC 0-08 tablet by ity of tablet 00:00: mouth (two) Medical times Branch daily with meals. diclofenac 2020-1 Yes [id number] 75mg Take 1 [facility] 75 mg EC 0-08 tablet by ity of tablet 00:00: mouth [place] (two) Medical times Branch daily with meals. diclofenac 2019-11 Yes [id number] 75mg Take 1 [facility] 75 mg EC 0-08 tablet by ity of tablet 00:00: mouth 2 [place] 00 (two) Medical times Branch daily with meals. diclofenac 2019-11 Yes [id number] 75mg Take 1 [facility] 75 mg EC 0-08 tablet by ity of tablet 00:00: mouth 2 [place] 00 (two) Medical times Branch daily with meals. diclofenac 2019-11 Yes [id number] 75mg Take 1 [facility] 75 mg EC 0-08 tablet by ity of tablet 00:00: mouth [place] 00 (two) Medical times Branch daily with meals. diclofenac 2019-11 Yes [id number] 75mg Take 1 [facility] 75 mg EC 0-08 tablet by ity of tablet 00:00: mouth [address] [place] [address] (two) Medical times Branch daily with meals. diclofenac 2019-11 Yes [id number] 75mg Take 1 [facility] 75 mg EC 0-08 tablet by ity of tablet 00:00: mouth [address] [place] [address] (two) Medical times Branch daily with meals. diclofenac 2019-11 Yes [id number] 75mg Take 1 [facility] 75 mg EC 0-08 tablet by ity of tablet 00:00: mouth [address] [place] [address] (two) Medical times Branch daily with meals. diclofenac 2019-11- No [id number] 75mg Take 1 [facility] 75 mg EC 0-08 10-25 tablet by ity o f tablet 00:00: 00:00 [facility] 2 [place] 00 :00 (two) Medical times Branch daily with meals. diclofenac 2019-11- No [id number] 75mg Take 1 [facility] 75 mg EC 0-08 10-25 tablet by ity o f tablet 00:00: 00:00 mouth 2 [place] 00 :00 (two) Medical times Branch daily with meals. CLONIDINE 2020-0 Yes [id number] TAKE 1 Un ally 0.2 mg 8-06 TABLET BY ity of tablet 00:00: MOUTH [place] 00 THREE Medical TIMES Branch DAILY CLONIDINE 2020-0 Yes [id number] TAKE 1 Un ally 0.2 mg 8-06 TABLET BY ity of tablet 00:00: MOUTH [place] 00 THREE Medical TIMES Branch DAILY CLONIDINE 2020-0 Yes [id number] TAKE 1 Un ally 0.2 mg 8-06 TABLET BY ity of tablet 00:00: MOUTH [place] 00 THREE Medical TIMES Branch DAILY CLONIDINE 2020-0 Yes [id number] TAKE 1 Un ally 0.2 mg 8-06 TABLET BY ity of tablet 00:00: THREE Medical TIMES Branch DAILY CLONIDINE 2020-0 Yes [id number] TAKE 1 Un ally 0.2 mg 8-06 TABLET BY ity of tablet 00:00: THREE Medical TIMES Branch DAILY CLONIDINE 2020-0 Yes [id number] TAKE 1 Un ally 0.2 mg 8-06 TABLET BY ity of tablet 00:00: THREE Medical TIMES Branch DAILY CLONIDINE 2020-0 Yes [id number] TAKE 1 Un ally 0.2 mg 8-06 TABLET BY ity of tablet 00:00: THREE Medical TIMES Branch DAILY CLONIDINE 2020-0 Yes [id number] TAKE 1 Un ally 0.2 mg 8-06 TABLET BY ity of tablet 00:00: THREE Medical TIMES Branch DAILY CLONIDINE 2020-0 Yes [id number] TAKE 1 Un ally 0.2 mg 8-06 TABLET BY ity of tablet 00:00: THREE Medical TIMES Branch DAILY CLONIDINE 2020-0 Yes [id number] TAKE 1 Un ally 0.2 mg 8-06 TABLET BY ity of tablet 00:00: THREE Medical TIMES Branch DAILY CLONIDINE 2020-0 Yes [id number] TAKE 1 Un ally 0.2 mg 8-06 TABLET BY ity of tablet 00:00: THREE Medical TIMES Branch DAILY CLONIDINE 2020-0 Yes [id number] TAKE 1 Un ally 0.2 mg 8-06 TABLET BY ity of tablet 00:00: THREE Medical TIMES Branch DAILY CLONIDINE 2020-0 Yes [id number] TAKE 1 Un ally 0.2 mg 8-06 TABLET BY ity of tablet 00:00: THREE Medical TIMES Branch DAILY CLONIDINE 2020-0 Yes [id number] TAKE 1 Un ally 0.2 mg 8-06 TABLET BY ity of tablet 00:00: THREE Medical TIMES Branch DAILY CLONIDINE 2020-0 Yes [id number] TAKE 1 Un ally 0.2 mg 8-06 TABLET BY ity of tablet 00:00: THREE Medical TIMES Branch DAILY CLONIDINE 2020-0 Yes [id number] TAKE 1 Un ally 0.2 mg 8-06 TABLET BY ity of tablet 00:00: THREE Medical TIMES Branch DAILY CLONIDINE 2020-0 Yes [id number] TAKE 1 Un ally 0.2 mg 8-06 TABLET BY ity of tablet 00:00: MOUTH THREE Medical TIMES Branch DAILY CLONIDINE 2020-0 Yes [id number] TAKE 1 Un ally 0.2 mg 8-06 TABLET BY ity of tablet 00:00: MOUTH THREE Medical TIMES Branch DAILY CLONIDINE 2020-0 Yes [id number] TAKE 1 Un ally 0.2 mg 8-06 TABLET BY ity of tablet 00:00: MOUTH THREE Medical TIMES Branch DAILY CLONIDINE 2020-0 Yes [id number] TAKE 1 Un ally 0.2 mg 8-06 TABLET BY ity of tablet 00:00: MOUTH THREE Medical TIMES Branch DAILY CLONIDINE 2020-0 Yes [id number] TAKE 1 Un ally 0.2 mg 8-06 TABLET BY ity of tablet 00:00: MOUTH THREE Medical TIMES Branch DAILY CLONIDINE 2020-0 Yes [id number] TAKE 1 Un ally 0.2 mg 8-06 TABLET BY ity of tablet 00:00: MOUTH THREE Medical TIMES Branch DAILY CLONIDINE 2020-0 Yes [id number] TAKE 1 Un ally 0.2 mg 8-06 TABLET BY ity of tablet 00:00: MOUTH THREE Medical TIMES Branch DAILY CLONIDINE 2020-0 Yes [id number] TAKE 1 Un ally 0.2 mg 8-06 TABLET BY ity of tablet 00:00: MOUTH THREE Medical TIMES Branch DAILY CLONIDINE 2020-0 Yes [id number] TAKE 1 Un ally 0.2 mg 8-06 TABLET BY ity of tablet 00:00: MOUTH THREE Medical TIMES Branch DAILY CLONIDINE 2020-0 Yes [id number] TAKE 1 Un ally 0.2 mg 8-06 TABLET BY ity of tablet 00:00: MOUTH THREE Medical TIMES Branch DAILY CLONIDINE 2020-0 Yes [id number] TAKE 1 Un ally 0.2 mg 8-06 TABLET BY ity of tablet 00:00: MOUTH THREE Medical TIMES Branch DAILY CLONIDINE 2020-0 Yes [id number] TAKE 1 Un ally 0.2 mg 8-06 TABLET BY ity of tablet 00:00: MOUTH THREE Medical TIMES Branch DAILY CLONIDINE 2020-0 Yes [id number] TAKE 1 Un ally 0.2 mg 8-06 TABLET BY ity of tablet 00:00: MOUTH THREE Medical TIMES Branch DAILY CLONIDINE 2020-0 Yes [id number] TAKE 1 Un ally 0.2 mg 8-06 TABLET BY ity of tablet 00:00: MOUTH 00 THREE Medical TIMES Branch DAILY CLONIDINE 2020-0 Yes [id number] TAKE 1 Un ally 0.2 mg 8-06 TABLET BY ity of tablet 00:00: MOUTH [place] 00 THREE Medical TIMES Branch DAILY CLONIDINE 2020-0 Yes [id number] TAKE 1 Un ally 0.2 mg 8-06 TABLET BY ity of tablet 00:00: MOUTH 00 THREE Medical TIMES Branch DAILY CLONIDINE 2020-0 Yes [id number] TAKE 1 Un ally 0.2 mg 8-06 TABLET BY ity of tablet 00:00: MOUTH 00 THREE Medical TIMES Branch DAILY CLONIDINE 2020-0 2- No [id number] TAKE 1 U nivers 0.2 mg 8-06 11-21 TABLET BY ity of tablet 00:00: 00:00 MOUTH [place] 00 :00 THREE Medical TIMES Branch DAILY CLONIDINE 2020-0 2021- No [id number] TAKE 1 U nivers 0.2 mg 8-06 [...] No TK 1 T PO Univers azole-trime 7-08 - BID ity of thoprim 00:00: 00:00 [place] 800-160 mg 00 :00 Medical per tablet Branch AMITIZA 24 2020-0 Yes TK 1 C PO Un ally mcg capsule 7-06 BID ity of 00:00: [place] 00 Medical Branch AMITIZA 24 2020-0 Yes TK 1 C PO Un ally mcg capsule 7-06 BID ity of 00:00: [place] 00 Medical Branch AMITIZA 24 2020-0 Yes TK 1 C PO Un ally mcg capsule 7-06 BID ity of 00:00: [place] [facility] AMITIZA 24 2019-0 Yes TK 1 C PO Un ally mcg capsule - BID ity of 00:00: [place] 00 Medical Branch AMITIZA 24 2020-0 Yes TK 1 C PO Un ally mcg capsule - BID ity of 00:00: [place] 00 Medical Branch AMITIZA 24 2019-0 Yes TK 1 C PO Un ally mcg capsule - BID ity of 00:00: [place] 00 Medical Branch AMITIZA 24 2019-0 Yes TK 1 C PO Un ally mcg capsule -06 BID ity of 00:00: [place] [facility] AMITIZA 24 2019-0 Yes TK 1 C PO Un ally mcg capsule - BID ity of 00:00: [place] 00 Medical Branch AMITIZA 24 2019-0 Yes TK 1 C PO Un ally mcg capsule - BID ity of 00:00: [place] 00 Medical Branch AMITIZA 24 2019-0 Yes TK 1 C PO Un ally mcg capsule -06 BID ity of 00:00: [place] 00 Medical Branch AMITIZA 24 2020-0 Yes TK 1 C PO Un ally mcg capsule 7-06 BID ity of 00:00: [place] 00 Medical Branch AMITIZA 24 2020-0 Yes TK 1 C PO Un ally mcg capsule -06 BID ity of 00:00: [place] 00 Medical Branch AMITIZA 24 2020-0 Yes TK 1 C PO Un ally mcg capsule 7-06 BID ity of 00:00: [place] 00 Medical Branch AMITIZA 24 2020-0 Yes TK 1 C PO Un ally mcg capsule 7-06 BID ity of 00:00: [place] 00 Medical Branch AMITIZA 24 2020-0 Yes TK 1 C PO Un ally mcg capsule 7-06 BID ity of 00:00: [place] 00 Medical Branch AMITIZA 24 2020-0 Yes TK 1 C PO Un ally mcg capsule 7- BID ity of 00:00: [place] [facility] AMITIZA 24 2020-0 Yes TK 1 C PO Un ally mcg capsule 7- BID ity of 00:00: [place] [facility] AMITIZA 24 2020-0 Yes TK 1 C PO Un ally mcg capsule - BID ity of 00:00: [place] [facility] AMITIZA 24 2019-0 Yes TK 1 C PO Un ally mcg capsule 05-06 BID ity of 00:00: [place] [facility] AMITIZA 24 2019-0 Yes TK 1 C PO Un ally mcg capsule 05-06 BID ity of 00:00: [place] [facility] AMITIZA 24 2019-0 Yes TK 1 C PO Un ally mcg capsule 05-06 BID ity of 00:00: [place] [facility] AMITIZA 24 2019-0 Yes TK 1 C PO Un ally mcg capsule 05-06 BID ity of 00:00: [place] [facility] AMITIZA 24 2019-0 Yes TK 1 C PO Un ally mcg capsule 05-06 BID ity of 00:00: [place] [facility] AMITIZA 24 2019-0 Yes TK 1 C PO Un ally mcg capsule 05-06 BID ity of 00:00: [place] [facility] AMITIZA 24 2019-0 Yes TK 1 C PO Un ally mcg capsule 05-06 BID ity of 00:00: [place] [facility] AMITIZA 24 2019-0 Yes TK 1 C PO Un ally mcg capsule 05-06 BID ity of 00:00: [place] [facility] AMITIZA 24 2020-0 Yes TK 1 C PO Un ally mcg capsule - BID ity of 00:00: [place] [facility] AMITIZA 24 2020-0 Yes TK 1 C PO Un ally mcg capsule - BID ity of 00:00: [place] [facility] AMITIZA 24 2020-0 Yes TK 1 C PO Un ally mcg capsule - BID ity of 00:00: [place] [facility] AMITIZA 24 2019-0 Yes TK 1 C PO Un ally mcg capsule - BID ity of 00:00: [place] [facility] AMITIZA 24 2020-0 Yes TK 1 C PO Un ally mcg capsule - BID ity of 00:00: [place] [facility] AMITIZA 24 2020-0 Yes TK 1 C PO Un ally mcg capsule 7- BID ity of 00:00: [place] [facility] AMITIZA 24 2020-0 Yes TK 1 C PO Un ally mcg capsule - BID ity of 00:00: [place] [facility] AMITIZA 24 2020-0 Yes TK 1 C PO Un ally mcg capsule 7- BID ity of 00:00: [place] [facility] AMITIZA 24 2020-0 Yes TK 1 C PO Un ally mcg capsule - BID ity of 00:00: [place] [facility] AMITIZA 24 2020-0 Yes TK 1 C PO Un ally mcg capsule - BID ity of 00:00: [place] [facility] AMITIZA 24 2019-0 Yes TK 1 C PO Un ally mcg capsule - BID ity of 00:00: [place] [facility] AMITIZA 24 2020-0 Yes TK 1 C PO Un ally mcg capsule - BID ity of 00:00: [place] [facility] AMITIZA 24 2019-0 Yes TK 1 C PO Un ally mcg capsule - BID ity of 00:00: [place] [facility] AMITIZA 24 2020-0 Yes TK 1 C PO Un ally mcg capsule - BID ity of 00:00: [place] [facility] AMITIZA 24 2019-0 Yes TK 1 C PO Un ally mcg capsule - BID ity of 00:00: [place] [facility] AMITIZA 24 2020-0 Yes TK 1 C PO Un ally mcg capsule - BID ity of 00:00: [place] [facility] AMITIZA 24 2020-0 Yes TK 1 C PO Un ally mcg capsule - BID ity of 00:00: [place] [facility] AMITIZA 24 2020-0 Yes TK 1 C PO Un ally mcg capsule 7-06 BID ity of 00:00: [place] [facility] AMITIZA 24 2020-0 Yes TK 1 C PO Un ally mcg capsule 7-06 BID ity of 00:00: [place] [facility] AMITIZA 24 2020-0 Yes TK 1 C PO Un ally mcg capsule 7-06 BID ity of 00:00: [place] [facility] AMITIZA 24 2020-0 Yes TK [...] capsule 7-06 BID ity of 00:00: [place] 00 Medical Branch AMITIZA 24 2020-0 Yes TK 1 C PO Un ally mcg capsule 7-06 BID ity of 00:00: 00 Medical Branch XIFAXAN 550 2020-0 Yes as needed. Univers mg tablet 5-14 ity of 00:00: [place] 00 Medical Branch XIFAXAN 550 2020-0 Yes [...] 2 00 (two) Medical times Branch daily. allopurinol [...] mg 09:53: mouth [place] tablet 14 daily. [facility] ALPRAZolam [id number] Yes 2mg Take 2 mg Un ally (XANAX) 8-28 by mouth ity of 0.25 mg 09:53: every 6 [place] tablet 14 (six) Medical hours as Branch needed. allopurinol 2019-0 Yes 100mg Take 100 U nivers (ZYLOPRIM) 8-28 mg by ity of 100 mg 09:53: mouth [place] tablet 14 daily. [facility] ALPRAZolam 2019-0 Yes 2mg Take 2 mg Un ally (XANAX) 8-28 by mouth ity of 0.25 mg 09:53: every 6 [place] tablet 14 (six) Medical hours as Branch needed. allopurinol 2019-0 Yes 100mg Take 100 U nivers (ZYLOPRIM) 8-28 mg by ity of 100 mg 09:53: mouth [place] tablet 14 daily. [facility] ALPRAZolam 2019-0 Yes 2mg Take 2 mg Un ally (XANAX) 8-28 by mouth ity of 0.25 mg 09:53: every 6 [place] tablet 14 (six) Medical hours as Branch needed. allopurinol 2019-0 Yes 100mg Take 100 U nivers (ZYLOPRIM) 8-28 mg by ity of 100 mg 09:53: mouth [place] tablet 14 daily. [facility] ALPRAZolam 2019-0 Yes 2mg Take [...] mg 09:53: mouth [place] tablet 14 daily. [facility] ALPRAZolam 2019-0 Yes 2mg Take [...] mg 09:53: mouth [place] tablet 14 daily. [facility] ALPRAZolam 2019-0 Yes 2mg Take 2 mg Un ally (XANAX) 8-28 by mouth ity of 0.25 mg 09:53: every 6 [place] tablet 14 (six) Medical hours as Branch needed. allopurinol 2019-0 Yes 100mg Take 100 U nivers (ZYLOPRIM) 8-28 mg by ity of 100 mg 09:53: mouth [place] tablet 14 daily. [facility] ALPRAZolam 2019-0 Yes 2mg Take 2 mg Un ally (XANAX) 8-28 by mouth ity of 0.25 mg 09:53: every 6 [place] tablet 14 (six) Medical hours as Branch needed. allopurinol 2019-0 Yes 100mg Take 100 U nivers (ZYLOPRIM) 8-28 mg by ity of 100 mg 09:53: mouth [place] tablet 14 daily. [facility] ALPRAZolam 2019-0 Yes 2mg Take 2 mg Un ally (XANAX) 8-28 by mouth ity of 0.25 mg 09:53: every 6 [place] tablet 14 (six) Medical hours as Branch needed. allopurinol 2019-0 Yes 100mg Take 100 U nivers (ZYLOPRIM) 8-28 mg by ity of 100 mg 09:53: mouth [place] tablet 14 daily. [facility] ALPRAZolam 2019-0 Yes 2mg Take 2 mg Un ally (XANAX) 8-28 by mouth ity of 0.25 mg 09:53: every 6 [place] tablet 14 (six) Medical hours as Branch needed. allopurinol 2019-0 Yes 100mg Take 100 U nivers (ZYLOPRIM) 8-28 mg by ity of 100 mg 09:53: mouth [place] tablet 14 daily. [facility] ALPRAZolam 2019-0 Yes 2mg Take [...] (six) Medical hours as Branch needed. atorvastati 0 Yes [id number] 40mg Take 1 Univers n 40 mg 5-28 tablet by ity of tablet 00:00: mouth [place] 00 every Medical evening. Branch atorvastati 0 Yes [id number] 40mg Take 1 [facility] n 40 mg 5-28 tablet by ity of tablet 00:00: mouth [place] 00 every Medical evening. Branch atorvastati 0 Yes [id number] 40mg Take 1 [facility] n 40 mg 5-28 tablet by ity of tablet 00:00: mouth [place] 00 every Medical evening. Branch atorvastati 2019-0 Yes [id number] 40mg Take 1 Univers n 40 mg 5-28 tablet by ity of tablet 00:00: mouth [place] 00 every Medical evening. Branch atorvastati 0 Yes [id number] 40mg Take 1 Univers n 40 mg 5-28 tablet by ity of tablet 00:00: mouth [place] 00 every Medical evening. Branch atorvastati 0 Yes [id number] 40mg Take 1 Univers n 40 mg 5-28 tablet by ity of tablet 00:00: mouth [place] 00 every Medical evening. Branch atorvastati Yes [id number] 40mg Take 1 Univers n 40 mg 5-28 tablet by ity of tablet 00:00: mouth [place] 00 every Medical evening. Branch atorvastati Yes [id number] 40mg Take 1 Univers n 40 mg 5-28 tablet by ity of tablet 00:00: mouth [place] 00 every Medical evening. [place] atorvastati Yes [id number] 40mg Take 1 Univers n 40 mg 5-28 tablet by ity of tablet 00:00: mouth [place] 00 every Medical evening. [place] atorvastati Yes [id number] 40mg Take 1 Univers n 40 mg 5-28 tablet by ity of tablet 00:00: mouth [place] 00 every Medical evening. [place] atorvastati 0 Yes [id number] 40mg Take 1 Univers n 40 mg 5-28 tablet by ity of tablet 00:00: mouth [place] 00 every Medical evening. [place] atorvastati 0 Yes [id number] 40mg Take 1 Univers n 40 mg 5-28 tablet by ity of tablet 00:00: mouth [place] 00 every Medical evening. Branch atorvastati 0 Yes [id number] 40mg Take 1 Univers n 40 mg 5-28 tablet by ity of tablet 00:00: mouth [place] 00 every Medical evening. Branch atorvastati Yes [id number] 40mg Take 1 Univers n 40 mg 5-28 tablet by ity of tablet 00:00: mouth [place] 00 every Medical evening. [place] atorvastati Yes [id number] 40mg Take 1 Univers n 40 mg 5-28 tablet by ity of tablet 00:00: mouth [place] 00 every Medical evening. Branch atorvastati Yes [id number] 40mg Take 1 Univers n 40 mg 5-28 tablet by ity of tablet 00:00: mouth [place] 00 every Medical evening. [place] atorvastati 0 Yes [id number] 40mg Take 1 Univers n 40 mg 5-28 tablet by ity of tablet 00:00: mouth [place] 00 every Medical evening. [place] atorvastati 0 Yes [id number] 40mg Take 1 Univers n 40 mg 5-28 tablet by ity of tablet 00:00: mouth [place] 00 every Medical evening. [place] atorvasta Yes [id number] 40mg Take 1 Univers n 40 mg 5-28 tablet by ity of tablet 00:00: mouth [place] 00 every Medical evening. [place] atorvastati Yes [id number] 40mg Take 1 Univers n 40 mg 5-28 tablet by ity of tablet 00:00: mouth [place] 00 every Medical evening. [place] atorvastati Yes [id number] 40mg Take 1 Univers n 40 mg 5-28 tablet by ity of tablet 00:00: mouth [place] 00 every Medical evening. [place] atorvasta Yes [id number] 40mg Take 1 Univers n 40 mg 5-28 tablet by ity of tablet 00:00: mouth [place] 00 every Medical evening. [place] atorvastati Yes [id number] 40mg Take 1 Univers n 40 mg 5-28 tablet by ity of tablet 00:00: mouth [place] 00 every Medical evening. [place] atorvastati Yes [id number] 40mg Take 1 Univers n 40 mg 5-28 tablet by ity of tablet 00:00: mouth [place] 00 every Medical evening. [place] atorvastati 0 Yes [id number] 40mg Take 1 Univers n 40 mg 5-28 tablet by ity of tablet 00:00: mouth [place] 00 every Medical evening. [place] atorvastati 0 Yes [id number] 40mg Take 1 [facility] n 40 mg 5-28 tablet by ity of tablet 00:00: mouth [place] 00 every Medical evening. [place] atorvastati 0 Yes [id number] 40mg Take 1 Univers n 40 mg 5-28 tablet by ity of tablet 00:00: mouth [place] 00 every Medical evening. [place] atorvastati Yes [id number] 40mg Take 1 Univers n 40 mg 5-28 tablet by ity of tablet 00:00: mouth [place] 00 every Medical evening. Branch atorvastati Yes [id number] 40mg Take 1 Univers n 40 mg 5-28 tablet by ity of tablet 00:00: mouth [place] 00 every Medical evening. Branch atorvastati Yes [id number] 40mg Take 1 Univers n 40 mg 5-28 tablet by ity of tablet 00:00: mouth [place] 00 every Medical evening. Branch atorvastati Yes [id number] 40mg Take 1 [facility] n 40 mg 5-28 tablet by ity of tablet 00:00: mouth [place] 00 every Medical evening. Branch atorvastati Yes [id number] 40mg Take 1 [facility] n 40 mg 5-28 tablet by ity of tablet 00:00: mouth [place] 00 every Medical evening. Branch atorvastati Yes [id number] 40mg Take 1 Univers n 40 mg 5-28 tablet by ity of tablet 00:00: mouth [place] 00 every Medical evening. Branch atorvastati 2021- No [id number] 40mg Take 1 Univers n 40 mg 5-28 11-21 tablet by ity of tablet 00:00: 00:00 mouth [place] 00 :00 every Medical evening. Branch atorvastati 2021- No [id number] 40mg Take 1 [facility] 40 mg [...] :00 daily. Medical Branch Cholecalcif 2017-11 Yes [id number] Take 1 Un ally alayna, 0-01 capsule by ity of Vitamin D3, 00:00: mouth [place] 50,000 unit 00 weekly. Medic al capsule Branch Cholecalcif 2017-11 Yes [id number] Take 1 [facility], 0-01 capsule by ity of Vitamin D3, 00:00: mouth [place] 50,000 unit 00 weekly. Medic al capsule Branch Cholecalcif 2017-11 Yes [id number] Take 1 [facility], 0-01 capsule by ity of Vitamin D3, 00:00: mouth [place] 50,000 unit 00 weekly. Medic al capsule Branch Cholecalcif 2017-11 Yes [id number] Take 1 [facility], 0-01 capsule by ity of Vitamin D3, 00:00: mouth [place] 50,000 unit 00 weekly. Medic al capsule Branch Cholecalcif 2017-11 Yes [id number] Take 1 [facility] alay[facility], 0-01 capsule by ity of Vitamin D3, 00:00: mouth [place] 50,000 unit 00 weekly. Medic al capsule Branch Cholecalcif 2017-11 Yes [id number] Take 1 [facility] al[facility], 0-01 capsule by ity of Vitamin D3, 00:00: mouth [place] 50,000 unit 00 weekly. Medic al capsule Branch Cholecalcif 2017-11 Yes [id number] Take 1 [facility], 0-01 capsule by ity of Vitamin D3, 00:00: mouth [place] 50,000 unit 00 weekly. Medic al capsule Branch Cholecalcif 2017-11 Yes [id number] Take 1 [facility], 0-01 capsule by ity of Vitamin D3, 00:00: mouth [place] 50,000 unit 00 weekly. Medic al capsule Branch Cholecalcif 2017-11 Yes [id number] Take 1 [facility], 0-01 capsule by ity of Vitamin D3, 00:00: mouth [place] 50,000 unit 00 weekly. Medic al capsule Branch Cholecalcif 2017-11 Yes [id number] Take 1 [facility], 0-01 capsule by ity of Vitamin D3, 00:00: mouth [place] 50,000 unit 00 weekly. Medic al capsule Branch Cholecalcif 2017-11 Yes [id number] Take 1 [facility], 0-01 capsule by ity of Vitamin D3, 00:00: mouth [place] 50,000 unit 00 weekly. Medic al capsule Branch Cholecalcif 2017-11 Yes [id number] Take 1 [facility], 0-01 capsule by ity of Vitamin D3, 00:00: mouth [place] 50,000 unit 00 weekly. Medic al capsule Branch Cholecalcif 2017-11 Yes [id number] Take 1 [facility], 0-01 capsule by ity of Vitamin D3, 00:00: mouth [place] 50,000 unit 00 weekly. Medic al capsule Branch Cholecalcif 2017-11 Yes [id number] Take 1 [facility], 0-01 capsule by ity of Vitamin D3, 00:00: mouth [place] 50,000 unit 00 weekly. Medic al capsule Branch Cholecalcif 2017-11 Yes [id number] Take 1 [facility], 0-01 capsule by ity of Vitamin D3, 00:00: mouth [place] 50,000 unit 00 weekly. Medic al capsule Branch Cholecalcif 2017-11 Yes [id number] Take 1 [facility], 0-01 capsule by ity of Vitamin D3, 00:00: mouth [place] 50,000 unit 00 weekly. Medic al capsule Branch Cholecalcif 2017-11 Yes [id number] Take 1 [facility] al[facility], 0-01 capsule by ity of Vitamin D3, 00:00: mouth [place] 50,000 unit 00 weekly. Medic al capsule Branch Cholecalcif 2017-11 Yes [id number] Take 1 [facility], 0-01 capsule by ity of Vitamin D3, 00:00: mouth [place] 50,000 unit 00 weekly. Medic al capsule Branch Cholecalcif 2017-11 Yes [id number] Take 1 [facility], 0-01 capsule by ity of Vitamin D3, 00:00: mouth [place] 50,000 unit 00 weekly. Medic al capsule Branch Cholecalcif 2017-11 Yes [id number] Take 1 [facility], 0-01 capsule by ity of Vitamin D3, 00:00: mouth [place] 50,000 unit 00 weekly. Medic al capsule Branch Cholecalcif 2017-11 Yes [id number] Take 1 [facility], 0-01 capsule by ity of Vitamin D3, 00:00: mouth [place] 50,000 unit 00 weekly. Medic al capsule Branch Cholecalcif 2017-11 Yes [id number] Take 1 [facility], 0-01 capsule by ity of Vitamin D3, 00:00: mouth [place] 50,000 unit 00 weekly. Medic al capsule Branch Cholecalcif 2017-11 Yes [id number] Take 1 [facility], 0-01 capsule by ity of Vitamin D3, 00:00: mouth [place] 50,000 unit 00 weekly. Medic al capsule Branch Cholecalcif 2017-11 Yes [id number] Take 1 [facility], 0-01 capsule by ity of Vitamin D3, 00:00: mouth [place] 50,000 unit 00 weekly. Medic al capsule Branch Cholecalcif 2017-11 Yes [id number] Take 1 [facility], 0-01 capsule by ity of Vitamin D3, 00:00: mouth [place] 50,000 unit 00 weekly. Medic al capsule Branch Cholecalcif 2017-11 Yes [id number] Take 1 [facility], 0-01 capsule by ity of Vitamin D3, 00:00: mouth [place] 50,000 unit 00 weekly. Medic al capsule Branch Cholecalcif 2017-11 Yes [id number] Take 1 [facility], 0-01 capsule by ity of Vitamin D3, 00:00: mouth [place] 50,000 unit 00 weekly. Medic al capsule Branch Cholecalcif 2017-11 Yes [id number] Take 1 [facility] al[facility], 0-01 capsule by ity of Vitamin D3, 00:00: mouth [place] 50,000 unit 00 weekly. Medic al capsule Branch Cholecalcif 2017-11 Yes [id number] Take 1 [facility], 0-01 capsule by ity of Vitamin D3, 00:00: mouth [place] 50,000 unit 00 weekly. Medic al capsule Branch Cholecalcif 2017-11 Yes [id number] Take 1 [facility], 0-01 capsule by ity of Vitamin D3, 00:00: mouth [place] 50,000 unit 00 weekly. Medic al capsule Branch Cholecalcif 2017-11 Yes [id number] Take 1 [facility], 0-01 capsule by ity of Vitamin D3, 00:00: mouth [place] 50,000 unit 00 weekly. Medic al capsule Branch Cholecalcif 2017-11 Yes [id number] Take 1 [facility], 0-01 capsule by ity of Vitamin D3, 00:00: mouth [place] 50,000 unit 00 weekly. Medic al capsule Branch Cholecalcif 2017-11 Yes [id number] Take 1 [facility], 0-01 capsule by ity of Vitamin D3, 00:00: mouth [place] 50,000 unit 00 weekly. Medic al capsule Branch Cholecalcif 2017-11 Yes [id number] Take 1 [facility], 0-01 capsule by ity of Vitamin D3, 00:00: mouth [place] 50,000 unit 00 weekly. Medic al capsule Branch Cholecalcif 2017-11 Yes [id number] Take 1 [facility], 0-01 capsule by ity of Vitamin D3, 00:00: mouth [place] 50,000 unit 00 weekly. Medic al capsule Branch Cholecalcif 2017-11 Yes [id number] Take 1 [facility], 0-01 capsule by ity of Vitamin D3, 00:00: mouth [place] 50,000 unit 00 weekly. Medic al capsule Branch Cholecalcif 2017-11 Yes [id number] Take 1 [facility], 0-01 capsule by ity of Vitamin D3, 00:00: mouth [place] 50,000 unit 00 weekly. Medic al capsule Branch Cholecalcif 2017-11 Yes [id number] Take 1 [facility], 0-01 capsule by ity of Vitamin D3, 00:00: mouth [place] 50,000 unit 00 weekly. Medic al capsule Branch Cholecalcif 2017-11 Yes [id number] Take 1 [facility], 0-01 capsule by ity of Vitamin D3, 00:00: mouth [place] 50,000 unit 00 weekly. Medic al capsule Branch Cholecalcif 2017-11 Yes [id number] Take 1 [facility], 0-01 capsule by ity of Vitamin D3, 00:00: mouth [place] 50,000 unit 00 weekly. Medic al capsule Branch Cholecalcif 2017-11 Yes [id number] Take 1 [facility], 0-01 capsule by ity of Vitamin D3, 00:00: mouth [place] 50,000 unit 00 weekly. Medic al capsule Branch Cholecalcif 2017-11 Yes [id number] Take 1 [facility], 0-01 capsule by ity of Vitamin D3, 00:00: mouth [place] 50,000 unit 00 weekly. Medic al capsule Branch Cholecalcif 2017-11 Yes [id number] Take 1 [facility], 0-01 capsule by ity of Vitamin D3, 00:00: mouth [place] 50,000 unit 00 weekly. Medic al capsule Branch Cholecalcif 2017-11 Yes [id number] Take 1 [facility], 0-01 capsule by ity of Vitamin D3, 00:00: mouth [place] 50,000 unit 00 weekly. Medic al capsule Branch Cholecalcif 2017-11 Yes [id number] Take 1 [facility], 0-01 capsule by ity of Vitamin D3, 00:00: mouth [place] 50,000 unit 00 weekly. Medic al capsule Branch Cholecalcif 2017-11 Yes [id number] Take 1 [facility], 0-01 capsule by ity of Vitamin D3, 00:00: mouth [place] 50,000 unit 00 weekly. Medic al capsule Branch Cholecalcif 2017-11 Yes [id number] Take 1 [facility], 0-01 capsule by ity of Vitamin D3, 00:00: mouth [place] 50,000 unit 00 weekly. Medic al capsule Branch Cholecalcif 2017-11 Yes [id number] Take 1 [facility], 0-01 capsule by ity of Vitamin D3, 00:00: mouth [place] 50,000 unit 00 weekly. Medic al capsule Branch Cholecalcif 2017-11 Yes [id number] Take 1 [facility], 0-01 capsule by ity of Vitamin D3, 00:00: mouth [place] 50,000 unit 00 weekly. Medic al capsule Branch Cholecalcif 2017-11 Yes [id number] Take 1 [facility], 0-01 capsule by ity of Vitamin D3, 00:00: mouth [place] 50,000 unit 00 weekly. Medic al capsule Branch Cholecalcif 2017-11 Yes [id number] Take 1 [facility], 0-01 capsule by ity of Vitamin D3, 00:00: mouth [place] 50,000 unit 00 weekly. Medic al capsule Branch Cholecalcif 2017-11 Yes [id number] Take 1 [facility], 0-01 capsule by ity of Vitamin D3, 00:00: mouth [place] 50,000 unit 00 weekly. Medic al capsule Branch Cholecalcif 2017-11 Yes [id number] Take 1 [facility], 0-01 capsule [...] Rate: 40 l 1,000 mL 19:14: ml/hr, [place] 00 Infuse over: 25 hr, Route: IV, Dosing Weight 141.364 kg, Total Volume: 1,000, Start date: 04/04/18 14:14:00 CDT, Duration: 30 day, Stop date: 05/04/18 14:13:00 CDT, 2.56, m2 Lactated 2017-0 No 1,000 mL, [place] [facility]ers IV 04-04 Rate: 40 l 1,000 mL 19:14: ml/hr, [place] 00 Infuse over: 25 hr, Route: IV, Dosing Weight 141.364 kg, Total Volume: 1,000, Start date: 04/04/18 14:14:00 CDT, Duration: 30 day, Stop date: 05/04/18 14:13:00 CDT, 2.56, m2 Lactated 2018-0 No 1,000 mL, [place] [facility] IV 6-04 Rate: 40 l 1,000 mL 19:14: ml/hr, [place] 00 Infuse over: 25 hr, Route: IV, Dosing Weight 141.364 kg, Total Volume: 1,000, Start date: 04/04/18 14:14:00 CDT, Duration: 30 day, Stop date: 05/04/18 14:13:00 CDT, 2.56, m2 Lactated 2018-0 No 1,000 mL, [place] [facility] IV 6-04 Rate: 40 l 1,000 mL 19:14: ml/hr, [place] 00 Infuse over: 25 hr, Route: IV, [...] Rate: 40 l 1,000 mL 19:14: ml/hr, [place] 00 Infuse over: 25 hr, Route: IV, [...] Rate: 40 l 1,000 mL 19:14: ml/hr, [place] 00 Infuse over: 25 hr, Route: IV, Dosing Weight 141.364 kg, Total Volume: 1,000, Start date: 04/04/18 14:14:00 CDT, Duration: 30 day, Stop date: 05/04/18 14:13:00 CDT, 2.56, m2 Lactated 2018-0 No 1,000 mL, [place] [facility] IV 6-04 Rate: 40 l 1,000 mL 19:14: ml/hr, [place] 00 Infuse over: 25 hr, Route: IV, [...] Rate: 40 l 1,000 mL 19:14: ml/hr, [place] 00 Infuse over: 25 hr, Route: IV, [...] Rate: 40 l 1,000 mL 19:14: ml/hr, [place] 00 Infuse over: 25 hr, Route: IV, Dosing Weight 141.364 kg, Total Volume: 1,000, Start date: 04/04/18 14:14:00 CDT, Duration: 30 day, Stop date: 05/04/18 14:13:00 CDT, 2.56, m2 Lactated 2018-0 No 1,000 mL, [facility] IV 6-04 Rate: 40 l 1,000 mL 19:14: ml/hr, [place] 00 Infuse over: 25 hr, Route: IV, Dosing Weight 141.364 kg, Total Volume: 1,000, Start date: 04/04/18 14:14:00 CDT, Duration: 30 day, Stop date: 05/04/18 14:13:00 CDT, 2.56, m2 Lactated 2018-0 No 1,000 mL, [facility] IV 6-04 Rate: 40 l 1,000 mL 19:14: ml/hr, [place] 00 Infuse over: 25 hr, Route: IV, Dosing Weight 141.364 kg, Total Volume: 1,000, Start date: 04/04/18 14:14:00 CDT, Duration: 30 day, Stop date: 05/04/18 14:13:00 CDT, 2.56, m2 Lactated 2018-0 No 1,000 mL, [facility] IV 6-04 Rate: 40 l 1,000 mL 19:14: ml/hr, [place] 00 Infuse over: 25 hr, Route: IV, [...] Rate: 40 l 1,000 mL 19:14: ml/hr, [place] 00 Infuse over: 25 hr, Route: IV, [...] Rate: 40 l 1,000 mL 19:14: ml/hr, [place] 00 Infuse over: 25 hr, Route: IV, [...] Rate: 40 l 1,000 mL 19:14: ml/hr, [place] 00 Infuse over: 25 hr, Route: IV, Dosing Weight 141.364 kg, Total Volume: 1,000, Start date: 04/04/18 14:14:00 CDT, Duration: 30 day, Stop date: 05/04/18 14:13:00 CDT, 2.56, m2 Lactated 2018-0 No 1,000 mL, [facility] IV 6-04 Rate: 40 l 1,000 mL 19:14: ml/hr, [place] 00 Infuse over: 25 hr, Route: IV, [...] Rate: 40 l 1,000 mL 19:14: ml/hr, [place] 00 Infuse over: 25 hr, Route: IV, Dosing Weight 141.364 kg, Total Volume: 1,000, Start date: 04/04/18 14:14:00 CDT, Duration: 30 day, Stop date: 05/04/18 14:13:00 CDT, 2.56, m2 Lactated 2018-0 No 1,000 mL, [place] [facility] IV 6- Rate: 40 l 1,000 mL 19:14: ml/hr, [place] 00 Infuse over: 25 hr, Route: IV, Dosing Weight 141.364 kg, Total Volume: 1,000, Start date: 04/04/18 14:14:00 CDT, Duration: 30 day, Stop date: 05/04/18 14:13:00 CDT, 2.56, m2 Lactated 2018-0 No 1,000 mL, [place] [facility] IV 6- Rate: 40 l 1,000 mL 19:14: ml/hr, [place] 00 Infuse over: 25 hr, Route: IV, [...] Rate: 40 l 1,000 mL 19:14: ml/hr, [place] 00 Infuse over: 25 hr, Route: IV, [...] Rate: 40 l 1,000 mL 19:14: ml/hr, [place] 00 Infuse over: 25 hr, Route: IV, [...] Rate: 40 l 1,000 mL 19:14: ml/hr, [place] 00 Infuse over: 25 hr, Route: IV, [...] Rate: 40 l 1,000 mL 19:14: ml/hr, [place] 00 Infuse over: 25 hr, Route: IV, [...] Rate: 40 l 1,000 mL 19:14: ml/hr, [place] 00 Infuse over: 25 hr, Route: IV, [...] Rate: 40 l 1,000 mL 19:14: ml/hr, [place] 00 Infuse over: 25 hr, Route: IV, [...] Rate: 40 l 1,000 mL 19:14: ml/hr, [place] 00 Infuse over: 25 hr, Route: IV, [...] Rate: 40 l 1,000 mL 19:14: ml/hr, [place] 00 Infuse over: 25 hr, Route: IV, [...] Rate: 40 l 1,000 mL 19:14: ml/hr, [place] 00 Infuse over: 25 hr, Route: IV, Dosing Weight 141.364 kg, Total Volume: 1,000, Start date: 04/04/18 14:14:00 CDT, Duration: 30 day, Stop date: 05/04/18 14:13:00 CDT, 2.56, m2 Lactated 2018-0 No 1,000 mL, [place] [facility] IV 6-04 Rate: 40 l 1,000 mL 19:14: ml/hr, [place] 00 Infuse over: 25 hr, Route: IV, [...] Rate: 40 l 1,000 mL 19:14: ml/hr, [place] 00 Infuse over: 25 hr, Route: IV, Dosing Weight 141.364 kg, Total Volume: 1,000, Start date: 04/04/18 14:14:00 CDT, Duration: 30 day, Stop date: 05/04/18 14:13:00 CDT, 2.56, m2 Lactated 2018-0 No 1,000 mL, [place] [facility] IV 6-04 Rate: 40 l 1,000 mL 19:14: ml/hr, [place] 00 Infuse over: 25 hr, Route: IV, [...] Rate: 40 l 1,000 mL 19:14: ml/hr, [place] 00 Infuse over: 25 hr, Route: IV, Dosing Weight 141.364 kg, Total Volume: 1,000, Start date: 04/04/18 14:14:00 CDT, Duration: 30 day, Stop date: 05/04/18 14:13:00 CDT, 2.56, m2 Lactated 2018-0 No 1,000 mL, [facility] IV 6-04 Rate: 40 l 1,000 mL 19:14: ml/hr, [place] 00 Infuse over: 25 hr, Route: IV, Dosing Weight 141.364 kg, Total Volume: 1,000, Start date: 04/04/18 14:14:00 CDT, Duration: 30 day, Stop date: 05/04/18 14:13:00 CDT, 2.56, m2 Lactated 2018-0 No 1,000 mL, [place] [facility] IV 6-04 Rate: 40 l 1,000 mL 19:14: ml/hr, [place] 00 Infuse over: 25 hr, Route: IV, Dosing Weight 141.364 kg, Total Volume: 1,000, Start date: 04/04/18 14:14:00 CDT, Duration: 30 day, Stop date: 05/04/18 14:13:00 CDT, 2.56, m2 Lactated 2018-0 No 1,000 mL, [place] [facility] IV 6-04 Rate: 40 l 1,000 mL 19:14: ml/hr, [place] 00 Infuse over: 25 hr, Route: IV, [...] Rate: 40 l 1,000 mL 19:14: ml/hr, [place] 00 Infuse over: 25 hr, Route: IV, Dosing Weight 141.364 kg, Total Volume: 1,000, Start date: 04/04/18 14:14:00 CDT, Duration: 30 day, Stop date: 05/04/18 14:13:00 CDT, 2.56, m2 Humulin 2018-0 Yes 60 unit, [facility] 70/30 5-15 SUB-Q, l 18:44: QPM, 0 [place] 00 Refill(s) Humulin 2018-0 Yes 60 unit, [facility] 70/30 5-15 SUB-Q, l 18:44: QPM, 0 [place] 00 Refill(s) Humulin 2018-0 Yes 60 unit, [facility] 70/30 5-15 SUB-Q, l 18:44: QPM, 0 [place] 00 Refill(s) Humulin 2018-0 Yes 60 unit, [facility] 70/30 5-15 SUB-Q, l 18:44: QPM, 0 [place] 00 Refill(s) Humulin 2018-0 Yes 60 unit, [facility] 70/30 5-15 SUB-Q, l 18:44: QPM, 0 [place] 00 Refill(s) Humulin 2018-0 Yes 60 unit, [facility] 70/30 5-15 SUB-Q, l 18:44: QPM, 0 [place] 00 Refill(s) Humulin 2018-0 Yes 60 unit, [facility] 70/30 5-15 SUB-Q, l 18:44: QPM, 0 [place] 00 Refill(s) Humulin 2018-0 Yes 60 unit, [facility] 70/30 5-15 SUB-Q, l 18:44: QPM, 0 [place] 00 Refill(s) Humulin 2018-0 Yes 60 unit, [facility] 70/30 5-15 SUB-Q, l 18:44: QPM, 0 [place] 00 Refill(s) Humulin 2018-0 Yes 60 unit, [facility] 70/30 5-15 SUB-Q, l 18:44: QPM, 0 [place] 00 Refill(s) Humulin 2018-0 Yes 60 unit, [facility] 70/30 5-15 SUB-Q, l 18:44: QPM, 0 [place] 00 Refill(s) Humulin 2018-0 Yes 60 unit, [facility] 70/30 5-15 SUB-Q, l 18:44: QPM, 0 [place] 00 Refill(s) Humulin 2018-0 Yes 60 unit, [facility] 70/30 5-15 SUB-Q, l 18:44: QPM, 0 [place] 00 Refill(s) Humulin 2018-0 Yes 60 unit, [facility] 70/30 5-15 SUB-Q, l 18:44: QPM, 0 [place] 00 Refill(s) Humulin 2018-0 Yes 60 unit, [facility] 70/30 5-15 SUB-Q, l 18:44: QPM, 0 [place] 00 Refill(s) Humulin 2018-0 Yes 60 unit, [facility] 70/30 5-15 SUB-Q, l 18:44: QPM, 0 [place] 00 Refill(s) Humulin 2018-0 Yes 60 unit, [facility] 70/30 5-15 SUB-Q, l 18:44: QPM, 0 [place] 00 Refill(s) Humulin 2018-0 Yes 60 unit, [facility] 70/30 5-15 SUB-Q, l 18:44: QPM, 0 [place] 00 Refill(s) Humulin 2018-0 Yes 60 unit, [facility] 70/30 5-15 SUB-Q, l 18:44: QPM, 0 [place] 00 Refill(s) Humulin 2018-0 Yes 60 unit, [...] 70/30 5-15 SUB-Q, l 18:44: QPM, 0 [place] 00 Refill(s) Humulin 2018-0 Yes 60 unit, [facility] 70/30 5-15 SUB-Q, l 18:44: QPM, 0 [place] 00 Refill(s) Humulin 2017-0 Yes 60 unit, [...] 70/30 5-15 SUB-Q, l 18:44: QPM, 0 [place] 00 Refill(s) Humulin 2018-0 Yes 60 unit, [facility] 70/30 5-15 SUB-Q, l 18:44: QPM, 0 [place] 00 Refill(s) Humulin 2018-0 Yes 60 unit, [facility] 70/30 5-15 SUB-Q, l 18:44: QPM, 0 [place] 00 Refill(s) Humulin 2018-0 Yes 60 unit, [facility] 70/30 5-15 SUB-Q, l 18:44: QPM, 0 [place] 00 Refill(s) Humulin 2018-0 Yes 60 unit, [facility] 70/30 5-15 SUB-Q, l 18:44: QPM, 0 [place] 00 Refill(s) Humulin 2018-0 Yes 60 unit, [facility] 70/30 5-15 SUB-Q, l 18:44: QPM, 0 [place] 00 Refill(s) Humulin 2018-0 Yes 60 unit, [facility] 70/30 5-15 SUB-Q, l 18:44: QPM, 0 [place] 00 Refill(s) Humulin 2017-0 Yes 60 unit, [facility] 70/30 5-15 SUB-Q, l 18:44: QPM, 0 [place] 00 Refill(s) Humulin 2017-0 Yes 60 unit, [facility] 70/30 5-15 SUB-Q, l 18:44: QPM, 0 [place] 00 Refill(s) Humulin 2017-0 Yes 60 unit, [facility] 70/30 5-15 SUB-Q, l 18:44: QPM, 0 [place] 00 Refill(s) Humulin 2017-0 Yes 60 unit, [facility] 70/30 5-15 SUB-Q, l 18:44: QPM, 0 [place] 00 Refill(s) Humulin 2017-0 Yes 60 unit, [facility] 70/30 5-15 SUB-Q, l 18:44: QPM, 0 [place] 00 Refill(s) Humulin 2018-0 Yes 60 unit, [facility] 70/30 5-15 SUB-Q, l 18:44: QPM, 0 [place] 00 Refill(s) Humulin 2017-0 Yes 60 unit, [facility] 70/30 5-15 SUB-Q, l 18:44: QPM, 0 [place] 00 Refill(s) Humulin 2017-0 Yes 60 unit, [facility] 70/30 5-15 SUB-Q, l 18:44: QPM, 0 [place] 00 Refill(s) Humulin 2018-0 Yes 60 unit, [facility] 70/30 5-15 SUB-Q, l 18:44: QPM, 0 [place] 00 Refill(s) Humulin 2018-0 Yes 60 unit, [facility] 70/30 5-15 SUB-Q, l 18:44: QPM, 0 [place] 00 Refill(s) Humulin 2018-0 Yes 60 unit, [facility] 70/30 5-15 SUB-Q, l 18:44: QPM, 0 [place] 00 Refill(s) Humulin 2018-0 Yes 60 unit, [facility] 70/30 5-15 SUB-Q, l 18:44: QPM, 0 [place] 00 Refill(s) Humulin 2018-0 Yes 60 unit, [facility] 70/30 5-15 SUB-Q, l 18:44: QPM, 0 [place] 00 Refill(s) Humulin 2018-0 Yes 60 unit, [facility] 70/30 5-15 SUB-Q, l 18:44: QPM, 0 [place] 00 Refill(s) Humulin 2018-0 Yes 60 unit, [facility] 70/30 5-15 SUB-Q, l 18:44: QPM, 0 [place] 00 Refill(s) Humulin 2018-0 Yes 60 unit, [facility] 70/30 5-15 SUB-Q, l 18:44: QPM, 0 [place] 00 Refill(s) Humulin 2018-0 Yes 60 unit, [facility] 70/30 5-15 SUB-Q, l 18:44: QPM, 0 [place] 00 Refill(s) Humulin 2018-0 Yes 60 unit, [facility] 70/30 5-15 SUB-Q, l 18:44: QPM, 0 [place] 00 Refill(s) Humulin 2018-0 Yes 60 unit, [facility] 70/30 5-15 SUB-Q, l 18:44: QPM, 0 [place] 00 Refill(s) Humulin 2018-0 Yes 60 unit, [facility] 70/30 5-15 SUB-Q, l 18:44: QPM, 0 [place] 00 Refill(s) Humulin 2018-0 Yes 60 unit, [facility] 70/30 5-15 SUB-Q, l 18:44: QPM, 0 [place] 00 Refill(s) Humulin 2018-0 Yes 60 unit, [facility] 70/30 5-15 SUB-Q, l 18:44: QPM, 0 [place] 00 Refill(s) Humulin 2018-0 Yes 60 unit, [...] 70/30 5-15 SUB-Q, l 18:44: QPM, 0 [place] 00 Refill(s) Humulin 2017-0 Yes 60 unit, [facility] 70/30 5-15 SUB-Q, l 18:44: QPM, 0 [place] 00 Refill(s) Humulin 2017-0 Yes 60 unit, [...] 70/30 5-15 SUB-Q, l 18:44: QPM, 0 [place] 00 Refill(s) Humulin 2018-0 Yes 60 unit, [...] 70/30 5-15 SUB-Q, l 18:43: QAM, 0 [place] 00 Refill(s) Humulin 2018-0 Yes 70 unit, [facility] 70/30 5-15 SUB-Q, l 18:43: QAM, 0 [place] 00 Refill(s) Humulin 2018-0 Yes 70 unit, [facility] 70/30 5-15 SUB-Q, l 18:43: QAM, 0 [place] 00 Refill(s) Humulin 2018-0 Yes 70 unit, [facility] 70/30 5-15 SUB-Q, l 18:43: QAM, 0 [place] 00 Refill(s) Humulin 2018-0 Yes 70 unit, [facility] 70/30 5-15 SUB-Q, l 18:43: QAM, 0 [place] 00 Refill(s) Humulin 2018-0 Yes 70 unit, [facility] 70/30 5-15 SUB-Q, l 18:43: QAM, 0 [place] 00 Refill(s) Humulin 2018-0 Yes 70 unit, [facility] 70/30 5-15 SUB-Q, l 18:43: QAM, 0 [place] 00 Refill(s) Humulin 2018-0 Yes 70 unit, [facility] 70/30 5-15 SUB-Q, l 18:43: QAM, 0 [place] 00 Refill(s) Humulin 2018-0 Yes 70 unit, [facility] 70/30 5-15 SUB-Q, l 18:43: QAM, 0 [place] 00 Refill(s) Humulin 2018-0 Yes 70 unit, [facility] 70/30 5-15 SUB-Q, l 18:43: QAM, 0 [place] 00 Refill(s) Humulin 2018-0 Yes 70 unit, [facility] 70/30 5-15 SUB-Q, l 18:43: QAM, 0 [place] 00 Refill(s) Humulin 2018-0 Yes 70 unit, [...] 70/30 5-15 SUB-Q, l 18:43: QAM, 0 [place] 00 Refill(s) Humulin 2018-0 Yes 70 unit, [facility] 70/30 5-15 SUB-Q, l 18:43: QAM, 0 [place] 00 Refill(s) Humulin 2018-0 Yes 70 unit, [facility] 70/30 5-15 SUB-Q, l 18:43: QAM, 0 [place] 00 Refill(s) Humulin 2017-0 Yes 70 unit, [facility] 70/30 5-15 SUB-Q, l 18:43: QAM, 0 [place] 00 Refill(s) Humulin 2018-0 Yes 70 unit, [facility] 70/30 5-15 SUB-Q, l 18:43: QAM, 0 [place] 00 Refill(s) Humulin 2018-0 Yes 70 unit, [facility] 70/30 5-15 SUB-Q, l 18:43: QAM, 0 [place] 00 Refill(s) Humulin 2018-0 Yes 70 unit, [facility] 70/30 5-15 SUB-Q, l 18:43: QAM, 0 [place] 00 Refill(s) Humulin 2018-0 Yes 70 unit, [facility] 70/30 5-15 SUB-Q, l 18:43: QAM, 0 [place] 00 Refill(s) Humulin 2018-0 Yes 70 unit, [facility] 70/30 5-15 SUB-Q, l 18:43: QAM, 0 [place] 00 Refill(s) Humulin 2018-0 Yes 70 unit, [...] 70/30 5-15 SUB-Q, l 18:43: QAM, 0 [place] 00 Refill(s) Humulin 2018-0 Yes 70 unit, [facility] 70/30 5-15 SUB-Q, l 18:43: QAM, 0 [place] 00 Refill(s) Humulin 2018-0 Yes 70 unit, [facility] 70/30 5-15 SUB-Q, l 18:43: QAM, 0 [place] 00 Refill(s) Humulin 2017-0 Yes 70 unit, [facility] 70/30 5-15 SUB-Q, l 18:43: QAM, 0 [place] 00 Refill(s) Humulin 2017-0 Yes 70 unit, [facility] 70/30 5-15 SUB-Q, l 18:43: QAM, 0 [place] 00 Refill(s) Humulin 2017-0 Yes 70 unit, [facility] 70/30 5-15 SUB-Q, l 18:43: QAM, 0 [place] 00 Refill(s) Humulin 2017-0 Yes 70 unit, [facility] 70/30 5-15 SUB-Q, l 18:43: QAM, 0 [place] 00 Refill(s) Humulin 2018-0 Yes 70 unit, [facility] 70/30 5-15 SUB-Q, l 18:43: QAM, 0 [place] 00 Refill(s) Humulin 2018-0 Yes 70 unit, Memori a 70/30 5-15 SUB-Q, l 18:43: QAM, 0 [place] 00 Refill(s) Humulin 2018-0 Yes 70 unit, Memori a 70/30 5-15 SUB-Q, l 18:43: QAM, 0 [place] 00 Refill(s) Humulin 2018-0 Yes 70 unit, Memori a 70/30 5-15 SUB-Q, l 18:43: QAM, 0 [place] 00 Refill(s) Humulin 2018-0 Yes 70 unit, Memori a 70/30 5-15 SUB-Q, l 18:43: QAM, 0 [place] 00 Refill(s) Humulin 2018-0 Yes 70 unit, Memori a 70/30 5-15 SUB-Q, l 18:43: QAM, 0 [place] 00 Refill(s) Humulin 2018-0 Yes 70 unit, Memori a 70/30 5-15 SUB-Q, l 18:43: QAM, 0 [place] 00 Refill(s) Humulin 2018-0 Yes 70 unit, Memori a 70/30 5-15 SUB-Q, l 18:43: QAM, 0 [place] 00 Refill(s) Humulin 2018-0 Yes 70 unit, Memori a 70/30 5-15 SUB-Q, l 18:43: QAM, 0 [place] 00 Refill(s) Humulin 2018-0 Yes 70 unit, Memori a 70/30 5-15 SUB-Q, l 18:43: QAM, 0 [place] 00 Refill(s) Humulin 2018-0 Yes 70 unit, Memori a 70/30 5-15 SUB-Q, l 18:43: QAM, 0 [place] 00 Refill(s) Humulin 2018-0 Yes 70 unit, [...] 70/30 5-15 SUB-Q, l 18:43: QAM, 0 [place] 00 Refill(s) Humulin 2018-0 Yes 70 unit, Memori a 70/30 5-15 SUB-Q, l 18:43: QAM, 0 [place] 00 Refill(s) Humulin 2018-0 Yes 70 unit, Memori a 70/30 5-15 SUB-Q, l 18:43: QAM, 0 [place] 00 Refill(s) Humulin 2018-0 Yes 70 unit, Memori a 70/30 5-15 SUB-Q, l 18:43: QAM, 0 [place] 00 Refill(s) Humulin 2018-0 Yes 70 unit, Memori a 70/30 5-15 SUB-Q, l 18:43: QAM, 0 [place] 00 Refill(s) Humulin 2018-0 Yes 70 unit, [...] 70/30 5-15 SUB-Q, l 18:43: QAM, 0 [place] 00 Refill(s) Humulin 2018-0 Yes 70 unit, Memori a 70/30 5-15 SUB-Q, l 18:43: QAM, 0 [place] 00 Refill(s) Humulin 2018-0 Yes 70 unit, Memori a 70/30 5-15 SUB-Q, l 18:43: QAM, 0 [place] 00 Refill(s) Humulin 2018-0 Yes 70 unit, Memori a 70/30 5-15 SUB-Q, l 18:43: QAM, 0 [place] 00 Refill(s) Humulin 2017-0 Yes 70 unit, Memori a 70/30 5-15 SUB-Q, l 18:43: QAM, 0 [place] 00 Refill(s) Humulin 2018-0 Yes 70 unit, Memori a 70/30 5-15 SUB-Q, l 18:43: QAM, 0 [place] 00 Refill(s) Humulin 2018-0 Yes 70 unit, Memori a 70/30 5-15 SUB-Q, l 18:43: QAM, 0 [place] 00 Refill(s) Humulin Yes 70 unit, Memori a 70/30 5-15 SUB-Q, l 18:43: QAM, 0 [place] 00 Refill(s) Humulin 0 Yes 70 unit, Memori a 70/30 5-15 SUB-Q, l 18:43: QAM, 0 [place] 00 Refill(s) Humulin 0 Yes 70 unit, Memori a 70/30 5-15 SUB-Q, l 18:43: QAM, 0 [place] 00 Refill(s) Humulin Yes 70 unit, [facility] 70/30 5-15 SUB-Q, l 18:43: QAM, 0 [place] 00 Refill(s) Humulin 0 Yes 70 unit, [facility] 70/30 5-15 SUB-Q, l 18:43: QAM, 0 [place] 00 Refill(s) albuterol 2015-11 Yes 2{puff} Inhale [...] tab, PO, l Tablet 16:37: TID, 0 [place] [Xanax] 00 Refill(s) Alprazolam Yes 2 mg [...] tab, PO, l Tablet 16:37: TID, 0 [place] [Xanax] 00 Refill(s) Alprazolam 20160 Yes 2 [...] tab, PO, l Tablet 16:37: TID, 0 [place] [Xanax] 00 Refill(s) Alprazolam 20160 Yes 2 mg = 1 [facility] 2 MG Oral 07 tab, PO, l Tablet 16:37: TID, 0 [place] [Xanax] 00 Refill(s) Alprazolam 20160 Yes 2 mg = 1 [facility] 2 MG Oral 11-07 tab, PO, l Tablet 16:37: TID, 0 [place] [Xanax] 00 Refill(s) Alprazolam 20160 Yes 2 mg = 1 [facility] 2 MG Oral 11-07 tab, PO, l Tablet 16:37: TID, 0 [place] [Xanax] 00 Refill(s) Alprazolam 20160 Yes 2 mg = 1 [facility] 2 MG Oral -07 tab, PO, l Tablet 16:37: TID, 0 [place] [Xanax] 00 Refill(s) Alprazolam 20160 Yes 2 mg = 1 [facility] 2 MG Oral -07 tab, PO, l Tablet 16:37: TID, 0 [place] [Xanax] 00 Refill(s) Alprazolam 20160 Yes 2 mg = 1 [facility] 2 MG Oral 1-07 tab, PO, l Tablet 16:37: TID, 0 [place] [Xanax] 00 Refill(s) Alprazolam 20160 Yes 2 mg = 1 [facility] 2 MG Oral -07 tab, PO, l Tablet 16:37: TID, 0 [place] [Xanax] 00 Refill(s) Alprazolam 20160 Yes 2 mg = 1 [facility] 2 MG Oral -07 tab, PO, l Tablet 16:37: TID, 0 [place] [Xanax] 00 Refill(s) Alprazolam 0 Yes 2 mg = 1 [facility] 2 MG Oral -07 tab, PO, l Tablet 16:37: TID, 0 [place] [Xanax] 00 Refill(s) Alprazolam Yes 2 mg [...] tab, PO, l Tablet 16:37: TID, 0 [place] [Xanax] 00 Refill(s) Alprazolam 0 Yes 2 mg = 1 [facility] 2 MG Oral -07 tab, PO, l Tablet 16:37: TID, 0 [place] [Xanax] 00 Refill(s) Alprazolam 2016-0 Yes 2 mg = 1 [facility] 2 MG Oral 1-07 tab, PO, l Tablet 16:37: TID, 0 [place] [Xanax] 00 Refill(s) Alprazolam 20160 Yes 2 mg = 1 [facility] 2 MG Oral -07 tab, PO, l Tablet 16:37: TID, 0 [place] [Xanax] 00 Refill(s) Alprazolam 20160 Yes 2 mg = 1 [facility] 2 MG Oral -07 tab, PO, l Tablet 16:37: TID, 0 [place] [Xanax] 00 Refill(s) Alprazolam 20160 Yes 2 mg = 1 [facility] 2 MG Oral -07 tab, PO, l Tablet 16:37: TID, 0 [place] [Xanax] 00 Refill(s) Alprazolam 20160 Yes 2 mg = 1 [facility] 2 MG Oral 07 tab, PO, l Tablet 16:37: TID, 0 [place] [Xanax] 00 Refill(s) Alprazolam 20160 Yes 2 mg = 1 [facility] 2 MG Oral -07 tab, PO, l Tablet 16:37: TID, 0 [place] [Xanax] 00 Refill(s) Alprazolam 20160 Yes 2 mg = 1 [facility] 2 MG Oral -07 tab, PO, l Tablet 16:37: TID, 0 [place] [Xanax] 00 Refill(s) Alprazolam 20160 Yes 2 mg = 1 [facility] 2 MG Oral -07 tab, PO, l Tablet 16:37: TID, 0 [place] [Xanax] 00 Refill(s) Alprazolam 20160 Yes 2 mg = 1 [facility] 2 MG Oral -07 tab, PO, l Tablet 16:37: TID, 0 [place] [Xanax] 00 Refill(s) Alprazolam 20160 Yes 2 mg = 1 [facility] 2 MG Oral 1-07 tab, PO, l Tablet 16:37: TID, 0 [place] [Xanax] 00 Refill(s) Alprazolam 20160 Yes 2 mg = 1 [facility] 2 MG Oral -07 tab, PO, l Tablet 16:37: TID, 0 [place] [Xanax] 00 Refill(s) Alprazolam 2016-0 Yes 2 mg = 1 [facility] 2 MG Oral -07 tab, PO, l Tablet 16:37: TID, 0 [place] [Xanax] 00 Refill(s) Alprazolam 20160 Yes 2 mg = 1 [facility] 2 MG Oral 11-07 tab, PO, l Tablet 16:37: TID, 0 [place] [Xanax] 00 Refill(s) Alprazolam 20160 Yes 2 mg = 1 [facility] 2 MG Oral 07 tab, PO, l Tablet 16:37: TID, 0 [place] [Xanax] 00 Refill(s) Alprazolam 20160 Yes 2 mg = 1 [facility] 2 MG Oral 07 tab, PO, l Tablet 16:37: TID, 0 [place] [Xanax] 00 Refill(s) Alprazolam 20160 Yes 2 mg = 1 [facility] 2 MG Oral 11-07 tab, PO, l Tablet 16:37: TID, 0 [place] [Xanax] 00 Refill(s) Alprazolam 20160 Yes 2 mg = 1 [facility] 2 MG Oral 11-07 tab, PO, l Tablet 16:37: TID, 0 [place] [Xanax] 00 Refill(s) Alprazolam 20160 Yes 2 mg = 1 [facility] 2 MG Oral 11-07 tab, PO, l Tablet 16:37: TID, 0 [place] [Xanax] 00 Refill(s) Alprazolam 20160 Yes 2 mg = 1 [facility] 2 MG Oral 07 tab, PO, l Tablet 16:37: TID, 0 [place] [Xanax] 00 Refill(s) Alprazolam 20160 Yes 2 mg = 1 [facility] 2 MG Oral -07 tab, PO, l Tablet 16:37: TID, 0 [place] [Xanax] 00 Refill(s) Alprazolam 20160 Yes 2 mg = 1 [facility] 2 MG Oral 07 tab, PO, l Tablet 16:37: TID, 0 [place] [Xanax] 00 Refill(s) Alprazolam 20160 Yes 2 [...] tab, PO, l Tablet 16:37: TID, 0 [place] [Xanax] 00 Refill(s) Alprazolam 20160 Yes 2 mg = 1 [facility] 2 MG Oral 11-07 tab, PO, l Tablet 16:37: TID, 0 [place] [Xanax] 00 Refill(s) Alprazolam 20160 Yes 2 mg = 1 [facility] 2 MG Oral 11-07 tab, PO, l Tablet 16:37: TID, 0 [place] [Xanax] 00 Refill(s) Alprazolam 20160 Yes 2 mg = 1 [facility] 2 MG Oral 11-07 tab, PO, l Tablet 16:37: TID, 0 [place] [Xanax] 00 Refill(s) Alprazolam 20160 Yes 2 mg = 1 [facility] 2 MG Oral 11-07 tab, PO, l Tablet 16:37: TID, 0 [place] [Xanax] 00 Refill(s) Alprazolam 20160 Yes 2 [...] tab, PO, l Tablet 16:37: TID, 0 [place] [Xanax] 00 Refill(s) Alprazolam 20160 Yes 2 [...] tab, PO, l Tablet 16:37: TID, 0 [place] [Xanax] 00 Refill(s) Alprazolam 2016 Yes 2 mg = 1 [facility] 2 MG Oral 11-07 tab, PO, l Tablet 16:37: TID, 0 [place] [Xanax] 00 Refill(s) Alprazolam 20160 Yes 2 mg = 1 [facility] 2 MG Oral 11-07 tab, PO, l Tablet 16:37: TID, 0 [place] [Xanax] 00 Refill(s) Alprazolam 20160 Yes 2 mg = 1 [facility] 2 MG Oral 11-07 tab, PO, l Tablet 16:37: TID, 0 [place] [Xanax] 00 Refill(s) Alprazolam 20160 Yes 2 mg = 1 [facility] 2 MG Oral 11-07 tab, PO, l Tablet 16:37: TID, 0 [place] [Xanax] 00 Refill(s) Alprazolam 20160 Yes 2 mg = 1 [facility] 2 MG Oral 11-07 tab, PO, l Tablet 16:37: TID, 0 [place] [Xanax] 00 Refill(s) Alprazolam 0 Yes 2 [...] tab, PO, l Tablet 16:37: TID, 0 [place] [Xanax] 00 Refill(s) Alprazolam Yes 2 mg [...] tab, PO, l Tablet 16:37: TID, 0 [place] [Xanax] 00 Refill(s) Alprazolam Yes 2 mg = 1 [facility] 2 MG Oral 07 tab, PO, l Tablet 16:37: TID, 0 [place] [Xanax] 00 Refill(s) Alprazolam Yes 2 mg = 1 [facility] 2 MG Oral 07 tab, PO, l Tablet 16:37: TID, 0 [place] [Xanax] 00 Refill(s) Nitroglycer Yes 0.4 mg [...] Pain, # 100 tab, 0 Refill(s) Nitroglycer 2016-0 Yes 0.4 mg = 1 [facility] in [...] Pain, # 100 tab, 0 Refill(s) Promethazin 0 Yes 5 mL, PO, M [facility] e VC with 1-07 PRN, 0 l Codeine 16:21: Refill(s) [place] 00 Promethazin 2016-0 Yes 5 mL, PO, M [facility] e VC with 1-07 PRN, 0 l Codeine 16:21: Refill(s) [place] 00 Promethazin 2015-0 Yes 5 mL, PO, M emoria e [...] l Codeine 16:21: Refill(s) [place] nn Promethazin 2015-0 Yes 5 mL, PO, M [facility] e VC with 1-07 PRN, 0 l Codeine 16:21: Refill(s) [place] nn Promethazin 2015-0 Yes 5 mL, PO, M [facility] e VC with 1-07 PRN, 0 l Codeine 16:21: Refill(s) [place] nn Promethazin 2015-0 Yes 5 mL, PO, M [facility] e VC with 1-07 PRN, 0 l Codeine 16:21: Refill(s) [place] Promethazin 0 Yes 5 mL, PO, M em[facility] e VC with 1-07 PRN, 0 l Codeine 16:21: Refill(s) [place] nn Acetaminoph Yes 1 tab, PO, [facility] 325 MG / 1-07 BID, 0 l Hydrocodone 16:19: Refill(s) [place] Bitartrate 00 10 MG Oral Tablet [Doss 10/325] Acetaminoph Yes 1 tab, PO, [facility] 325 MG / 1-07 BID, 0 l Hydrocodone 16:19: Refill(s) [place] Bitartrate 00 10 MG Oral Tablet [Doss 10/325] Acetaminoph Yes 1 tab, PO, [facility] 325 MG / 1-07 BID, 0 l Hydrocodone 16:19: Refill(s) [place] Bitartrate 00 10 MG Oral Tablet [Doss 10/325] Acetaminoph Yes 1 tab, PO, [facility] 325 MG / 1-07 BID, 0 l Hydrocodone 16:19: Refill(s) [place] Bitartrate 00 10 MG Oral Tablet [Doss 10/325] Acetaminoph Yes 1 tab, PO, [facility] 325 MG / 1-07 BID, 0 l Hydrocodone 16:19: Refill(s) [place] Bitartrate 00 10 MG Oral Tablet [Doss 10/325] Acetaminoph Yes 1 tab, PO, [facility] 325 MG / 1-07 BID, 0 l Hydrocodone 16:19: Refill(s) [place] Bitartrate 00 10 MG Oral Tablet [Doss 10/325] Acetaminoph Yes 1 tab, PO, [facility] 325 MG / 1-07 BID, 0 l Hydrocodone 16:19: Refill(s) [place] Bitartrate 00 10 MG Oral Tablet [Doss 10/325] Acetaminoph Yes 1 tab, PO, [facility] 325 MG / 1-07 BID, 0 l Hydrocodone 16:19: Refill(s) [place] Bitartrate 00 10 MG Oral Tablet [Doss 10/325] Acetaminoph Yes 1 tab, PO, [facility] 325 MG / 1-07 BID, 0 l Hydrocodone 16:19: Refill(s) [place] Bitartrate 00 10 MG Oral Tablet [Doss 10/325] Acetaminoph Yes 1 tab, PO, [facility] 325 MG / 1-07 BID, 0 l Hydrocodone 16:19: Refill(s) [place] Bitartrate 00 10 MG Oral Tablet [Doss 10/325] Acetaminoph Yes 1 tab, PO, [facility] 325 MG / 1-07 BID, 0 l Hydrocodone 16:19: Refill(s) [place] Bitartrate 00 10 MG Oral Tablet [Doss 10/325] Acetaminoph Yes 1 tab, PO, [facility] 325 MG / 1-07 BID, 0 l Hydrocodone 16:19: Refill(s) [place] Bitartrate 00 10 MG Oral Tablet [Doss 10/325] Acetaminoph Yes 1 tab, PO, [facility] 325 MG / 1-07 BID, 0 l Hydrocodone 16:19: Refill(s) [place] Bitartrate 00 10 MG Oral Tablet [Doss 10/325] Acetaminoph Yes 1 tab, PO, [facility] 325 MG / 1-07 BID, 0 l Hydrocodone 16:19: Refill(s) [place] Bitartrate 00 10 MG Oral Tablet [Doss 10/325] Acetaminoph Yes 1 tab, PO, [facility] 325 MG / 1-07 BID, 0 l Hydrocodone 16:19: Refill(s) [place] Bitartrate 00 10 MG Oral Tablet [Doss 10/325] Acetaminoph Yes 1 tab, PO, [facility] 325 MG / 1-07 BID, 0 l Hydrocodone 16:19: Refill(s) [place] Bitartrate 00 10 MG Oral Tablet [Doss 10/325] Acetaminoph Yes 1 tab, PO, [facility] 325 MG / 1-07 BID, 0 l Hydrocodone 16:19: Refill(s) [place] Bitartrate 00 10 MG Oral Tablet [Doss 10/325] Acetaminoph Yes 1 tab, PO, [facility] 325 MG / 1-07 BID, 0 l Hydrocodone 16:19: Refill(s) [place] Bitartrate 00 10 MG Oral Tablet [Doss 10/325] Acetaminoph Yes 1 tab, PO, [facility] 325 MG / 1-07 BID, 0 l Hydrocodone 16:19: Refill(s) [place] Bitartrate 00 10 MG Oral Tablet [Doss 10/325] Acetaminoph Yes 1 tab, PO, [facility] 325 MG / 1-07 BID, 0 l Hydrocodone 16:19: Refill(s) [place] Bitartrate 00 10 MG Oral Tablet [Doss 10/325] Acetaminoph Yes 1 tab, PO, [facility] 325 MG / 1-07 BID, 0 l Hydrocodone 16:19: Refill(s) [place] Bitartrate 00 10 MG Oral Tablet [Doss 10/325] Acetaminoph Yes 1 tab, PO, [facility] 325 MG / 1-07 BID, 0 l Hydrocodone 16:19: Refill(s) [place] Bitartrate 00 10 MG Oral Tablet [Doss 10/325] Acetaminoph Yes 1 tab, PO, [facility] 325 MG / 1-07 BID, 0 l Hydrocodone 16:19: Refill(s) [place] Bitartrate 00 10 MG Oral Tablet [Doss 10/325] Acetaminoph Yes 1 tab, PO, [facility] 325 MG / 1-07 BID, 0 l Hydrocodone 16:19: Refill(s) [place] Bitartrate 00 10 MG Oral Tablet [Doss 10/325] Acetaminoph Yes 1 tab, PO, [facility] 325 MG / 1-07 BID, 0 l Hydrocodone 16:19: Refill(s) [place] Bitartrate 00 10 MG Oral Tablet [Doss 10/325] Acetaminoph Yes 1 tab, PO, [facility] 325 MG / 1-07 BID, 0 l Hydrocodone 16:19: Refill(s) [place] Bitartrate 00 10 MG Oral Tablet [Doss 10/325] Acetaminoph Yes 1 tab, PO, [facility] 325 MG / 1-07 BID, 0 l Hydrocodone 16:19: Refill(s) [place] Bitartrate 00 10 MG Oral Tablet [Doss 10/325] Acetaminoph Yes 1 tab, PO, [facility] 325 MG / 1-07 BID, 0 l Hydrocodone 16:19: Refill(s) [place] Bitartrate 00 10 MG Oral Tablet [Doss 10/325] Acetaminoph Yes 1 tab, PO, [facility] 325 MG / 1-07 BID, 0 l Hydrocodone 16:19: Refill(s) [place] Bitartrate 00 10 MG Oral Tablet [Doss 10/325] Acetaminoph Yes 1 tab, PO, [facility] 325 MG / 1-07 BID, 0 l Hydrocodone 16:19: Refill(s) [place] Bitartrate 00 10 MG Oral Tablet [Doss 10/325] Acetaminoph Yes 1 tab, PO, [facility] 325 MG / 1-07 BID, 0 l Hydrocodone 16:19: Refill(s) [place] Bitartrate 00 10 MG Oral Tablet [Doss 10/325] Acetaminoph Yes 1 tab, PO, [facility] 325 MG / 1-07 BID, 0 l Hydrocodone 16:19: Refill(s) [place] Bitartrate 00 10 MG Oral Tablet [Doss 10/325] Acetaminoph Yes 1 tab, PO, [facility] 325 MG / 1-07 BID, 0 l Hydrocodone 16:19: Refill(s) [place] Bitartrate 00 10 MG Oral Tablet [Doss 10/325] Acetaminoph Yes 1 tab, PO, [facility] 325 MG / 1-07 BID, 0 l Hydrocodone 16:19: Refill(s) [place] Bitartrate 00 10 MG Oral Tablet [Doss 10/325] Acetaminoph Yes 1 tab, PO, [facility] 325 MG / 1-07 BID, 0 l Hydrocodone 16:19: Refill(s) [place] Bitartrate 00 10 MG Oral Tablet [Doss 10/325] Acetaminoph Yes 1 tab, PO, [facility] 325 MG / 1-07 BID, 0 l Hydrocodone 16:19: Refill(s) [place] Bitartrate 00 10 MG Oral Tablet [Doss 10/325] Acetaminoph Yes 1 tab, PO, [facility] 325 MG / 1-07 BID, 0 l Hydrocodone 16:19: Refill(s) [place] Bitartrate 00 10 MG Oral Tablet [Doss 10/325] Acetaminoph Yes 1 tab, PO, [facility] 325 MG / 1-07 BID, 0 l Hydrocodone 16:19: Refill(s) [place] Bitartrate 00 10 MG Oral Tablet [Doss 10/325] Acetaminoph Yes 1 tab, PO, [facility] 325 MG / 1-07 BID, 0 l Hydrocodone 16:19: Refill(s) [place] Bitartrate 00 10 MG Oral Tablet [Doss 10/325] Acetaminoph Yes 1 tab, PO, [facility] 325 MG / 1-07 BID, 0 l Hydrocodone 16:19: Refill(s) [place] Bitartrate 00 10 MG Oral Tablet [Doss 10/325] Acetaminoph Yes 1 tab, PO, [facility] 325 MG / 1-07 BID, 0 l Hydrocodone 16:19: Refill(s) [place] Bitartrate 00 10 MG Oral Tablet [Doss 10/325] Acetaminoph Yes 1 tab, PO, [facility] 325 MG / 1-07 BID, 0 l Hydrocodone 16:19: Refill(s) [place] Bitartrate 00 10 MG Oral Tablet [Doss 10/325] Acetaminoph Yes 1 tab, PO, [facility] 325 MG / 1-07 BID, 0 l Hydrocodone 16:19: Refill(s) [place] Bitartrate 00 10 MG Oral Tablet [Doss 10/325] Acetaminoph Yes 1 tab, PO, [facility] 325 MG / 1-07 BID, 0 l Hydrocodone 16:19: Refill(s) [place] Bitartrate 00 10 MG Oral Tablet [Doss 10/325] Acetaminoph Yes 1 tab, PO, [facility] 325 MG / 1-07 BID, 0 l Hydrocodone 16:19: Refill(s) [place] Bitartrate 00 10 MG Oral Tablet [Doss 10/325] Acetaminoph Yes 1 tab, PO, [facility] 325 MG / 1-07 BID, 0 l Hydrocodone 16:19: Refill(s) [place] Bitartrate 00 10 MG Oral Tablet [Doss 10/325] Acetaminoph Yes 1 tab, PO, [facility] 325 MG / 1-07 BID, 0 l Hydrocodone 16:19: Refill(s) [place] Bitartrate 00 10 MG Oral Tablet [Doss 10/325] Acetaminoph Yes 1 tab, PO, [facility] 325 MG / 1-07 BID, 0 l Hydrocodone 16:19: Refill(s) [place] Bitartrate 00 10 MG Oral Tablet [Doss 10/325] Acetaminoph Yes 1 tab, PO, [facility] 325 MG / 1-07 BID, 0 l Hydrocodone 16:19: Refill(s) [place] Bitartrate 00 10 MG Oral Tablet [Doss 10/325] Acetaminoph Yes 1 tab, PO, [facility] 325 MG / 1-07 BID, 0 l Hydrocodone 16:19: Refill(s) [place] Bitartrate 00 10 MG Oral Tablet [Doss 10/325] Acetaminoph Yes 1 tab, PO, [facility] 325 MG / 1-07 BID, 0 l Hydrocodone 16:19: Refill(s) [place] Bitartrate 00 10 MG Oral Tablet [Doss 10/325] Acetaminoph Yes 1 tab, PO, [facility] 325 MG / 1-07 BID, 0 l Hydrocodone 16:19: Refill(s) [place] Bitartrate 00 10 MG Oral Tablet [Doss 10/325] Acetaminoph Yes 1 tab, PO, [facility] 325 MG / 1-07 BID, 0 l Hydrocodone 16:19: Refill(s) [place] Bitartrate 00 10 MG Oral Tablet [Doss 10/325] Acetaminoph Yes 1 tab, PO, [facility] 325 MG / 1-07 BID, 0 l Hydrocodone 16:19: Refill(s) [place] Bitartrate 00 10 MG Oral Tablet [Doss 10/325] Acetaminoph Yes 1 tab, PO, [facility] 325 MG / 1-07 BID, 0 l Hydrocodone 16:19: Refill(s) [place] Bitartrate 00 10 MG Oral Tablet [Doss 10/325] Acetaminoph Yes 1 tab, PO, [facility] 325 MG / 1-07 BID, 0 l Hydrocodone 16:19: Refill(s) [place] Bitartrate 00 10 MG Oral Tablet [Doss 10/325] Acetaminoph Yes 1 tab, PO, [facility] 325 MG / 1-07 BID, 0 l Hydrocodone 16:19: Refill(s) [place] Bitartrate 00 10 MG Oral Tablet [Doss 10/325] Acetaminoph Yes 1 tab, PO, [facility] 325 MG / 1-07 BID, 0 l Hydrocodone 16:19: Refill(s) [place] Bitartrate 00 10 MG Oral Tablet [Doss 10/325] Acetaminoph Yes 1 tab, PO, [facility] 325 MG / 1-07 BID, 0 l Hydrocodone 16:19: Refill(s) [place] Bitartrate 00 10 MG Oral Tablet [Doss 10/325] Acetaminoph Yes 1 tab, PO, [facility] 325 MG / 1-07 BID, 0 l Hydrocodone 16:19: Refill(s) [place] Bitartrate 00 10 MG Oral Tablet [Doss 10/325] Acetaminoph Yes 1 tab, PO, [facility] 325 MG / 1-07 BID, 0 l Hydrocodone 16:19: Refill(s) [place] Bitartrate 00 10 MG Oral Tablet [Doss 10/325] Acetaminoph Yes 1 tab, PO, [facility] 325 MG / 1-07 BID, 0 l Hydrocodone 16:19: Refill(s) [place] Bitartrate 00 10 MG Oral Tablet [Doss 10/325] Acetaminoph Yes 1 tab, PO, [facility] 325 MG / 1-07 BID, 0 l Hydrocodone 16:19: Refill(s) [place] Bitartrate 00 10 MG Oral Tablet [Doss 10/325] Acetaminoph Yes 1 tab, PO, [facility] 325 MG / 1-07 BID, 0 l Hydrocodone 16:19: Refill(s) [place] Bitartrate 00 10 MG Oral Tablet [Doss 10/325] Acetaminoph Yes 1 tab, PO, [facility] 325 MG / 1-07 BID, 0 l Hydrocodone 16:19: Refill(s) [place] Bitartrate 00 10 MG Oral Tablet [Doss 10/325] Acetaminoph Yes 1 tab, PO, [facility] 325 MG / 1-07 BID, 0 l Hydrocodone 16:19: Refill(s) [place] Bitartrate 00 10 MG Oral Tablet [Doss 10/325] Acetaminoph Yes 1 tab, PO, [facility] 325 MG / 1-07 BID, 0 l Hydrocodone 16:19: Refill(s) [place] Bitartrate 00 10 MG Oral Tablet [Doss 10/325] Acetaminoph Yes 1 tab, PO, [facility] 325 MG / 1-07 BID, 0 l Hydrocodone 16:19: Refill(s) [place] Bitartrate 00 10 MG Oral Tablet [Doss 10/325] Acetaminoph Yes 1 tab, PO, [facility] 325 MG / 1-07 BID, 0 l Hydrocodone 16:19: Refill(s) [place] Bitartrate 00 10 MG Oral Tablet [Doss 10/325] Acetaminoph Yes 1 tab, PO, [facility] 325 MG / 11-07 BID, 0 l Hydrocodone 16:19: Refill(s) [place] Bitartrate 00 10 MG Oral Tablet [Doss 10/325] Acetaminoph 0 Yes 1 tab, PO, [facility] 325 MG / 07 BID, 0 l Hydrocodone 16:19: Refill(s) [place] Bitartrate 00 10 MG Oral Tablet [Doss 10/325] tizanidine Yes 4 mg = 1 [...] cap, PO, l capsule 16:17: BID, 0 [place] 00 Refill(s) cephalexin 2016-0 Yes 500 mg = 1 [facility] 500 mg oral 1-07 cap, PO, l capsule 16:17: BID, 0 [place] 00 Refill(s) cephalexin 2016-0 Yes 500 mg = 1 [facility] 500 mg oral 1-07 cap, PO, l capsule 16:17: BID, 0 [place] 00 Refill(s) cephalexin 2016-0 Yes 500 mg = 1 [facility] 500 mg oral 1-07 cap, PO, l capsule 16:17: BID, 0 [place] 00 Refill(s) cephalexin 2016-0 Yes 500 mg = 1 [facility] 500 mg oral 1-07 cap, PO, l capsule 16:17: BID, 0 [place] 00 Refill(s) cephalexin 2016-0 Yes 500 mg = 1 [facility] 500 mg oral 1-07 cap, PO, l capsule 16:17: BID, 0 [place] 00 Refill(s) cephalexin 2016-0 Yes 500 mg = 1 [facility] 500 mg oral 1-07 cap, PO, l capsule 16:17: BID, 0 [place] 00 Refill(s) cephalexin 2016-0 Yes 500 mg = 1 [facility] 500 mg oral 1-07 cap, PO, l capsule 16:17: BID, 0 [place] 00 Refill(s) cephalexin 2016-0 Yes 500 mg [...] cap, PO, l capsule 16:17: BID, 0 [place] 00 Refill(s) cephalexin 2016-0 Yes 500 mg = 1 [facility] 500 mg oral 1-07 cap, PO, l capsule 16:17: BID, 0 [place] 00 Refill(s) cephalexin 2016-0 Yes 500 mg = 1 [facility] 500 mg oral 1-07 cap, PO, l capsule 16:17: BID, 0 [place] 00 Refill(s) cephalexin 2016-0 Yes 500 mg = 1 [facility] 500 mg oral 1-07 cap, PO, l capsule 16:17: BID, 0 [place] 00 Refill(s) cephalexin 2016-0 Yes 500 mg = 1 [facility] 500 mg oral 1-07 cap, PO, l capsule 16:17: BID, 0 [place] 00 Refill(s) cephalexin 2016-0 Yes 500 mg = 1 [facility] 500 mg oral 1-07 cap, PO, l capsule 16:17: BID, 0 [place] 00 Refill(s) cephalexin 2016-0 Yes 500 mg [...] cap, PO, l capsule 16:17: BID, 0 [place] 00 Refill(s) cephalexin 2016-0 Yes 500 mg = 1 [facility] 500 mg oral 1-07 cap, PO, l capsule 16:17: BID, 0 [place] 00 Refill(s) cephalexin 2016-0 Yes 500 mg = 1 [facility] 500 mg oral 1-07 cap, PO, l capsule 16:17: BID, 0 [place] 00 Refill(s) cephalexin 2016-0 Yes 500 mg [...] cap, PO, l capsule 16:17: BID, 0 [place] 00 Refill(s) cephalexin 2016-0 Yes 500 mg [...] cap, PO, l capsule 16:17: BID, 0 [place] 00 Refill(s) cephalexin 2016-0 Yes 500 mg [...] cap, PO, l capsule 16:17: BID, 0 [place] 00 Refill(s) cephalexin 2016-0 Yes 500 mg [...] cap, PO, l capsule 16:17: BID, 0 [place] 00 Refill(s) cephalexin 2016-0 Yes 500 mg = 1 [facility] 500 mg oral 1-07 cap, PO, l capsule 16:17: BID, 0 [place] 00 Refill(s) cephalexin 2016-0 Yes 500 mg [...] cap, PO, l capsule 16:17: BID, 0 [place] 00 Refill(s) cephalexin 2016-0 Yes 500 mg = 1 [facility] 500 mg oral 1-07 cap, PO, l capsule 16:17: BID, 0 [place] 00 Refill(s) cephalexin 2016-0 Yes 500 mg = 1 [facility] 500 mg oral 1-07 cap, PO, l capsule 16:17: BID, 0 [place] 00 Refill(s) cephalexin 2016-0 Yes 500 mg = 1 [facility] 500 mg oral 1-07 cap, PO, l capsule 16:17: BID, 0 [place] 00 Refill(s) cephalexin 2015-0 Yes 500 mg = 1 [facility] 500 mg oral 1-07 cap, PO, l capsule 16:17: BID, 0 [place] 00 Refill(s) cephalexin 2016-0 Yes 500 mg [...] cap, PO, l capsule 16:17: BID, 0 [place] 00 Refill(s) cephalexin 2016-0 Yes 500 mg = 1 [facility] 500 mg oral 1-07 cap, PO, l capsule 16:17: BID, 0 [place] 00 Refill(s) cephalexin 2016-0 Yes 500 mg [...] cap, PO, l capsule 16:17: BID, 0 [place] 00 Refill(s) cephalexin 2016-0 Yes 500 mg = 1 [facility] 500 mg oral 1-07 cap, PO, l capsule 16:17: BID, 0 [place] 00 Refill(s) cephalexin 2016-0 Yes 500 mg = 1 [facility] 500 mg oral 1-07 cap, PO, l capsule 16:17: BID, 0 [place] 00 Refill(s) cephalexin 2016-0 Yes 500 mg = 1 [facility] 500 mg oral 1-07 cap, PO, l capsule 16:17: BID, 0 [place] 00 Refill(s) cephalexin 2016-0 Yes 500 mg = 1 [facility] 500 mg oral 1-07 cap, PO, l capsule 16:17: BID, 0 [place] 00 Refill(s) cephalexin 2016-0 Yes 500 mg [...] cap, PO, l capsule 16:17: BID, 0 [place] 00 Refill(s) cephalexin 2016-0 Yes 500 mg = 1 [facility] 500 mg oral 1-07 cap, PO, l capsule 16:17: BID, 0 [place] 00 Refill(s) cephalexin 0 Yes 500 mg = 1 M emoria 500 mg oral 1-07 cap, PO, l capsule 16:17: BID, 0 [place] 00 Refill(s) cephalexin 2015-0 Yes 500 mg = 1 M emoria 500 mg oral 1-07 cap, PO, l capsule 16:17: BID, 0 [place] 00 Refill(s) cephalexin 0 Yes 500 mg = 1 M emoria 500 mg oral 1-07 cap, PO, l capsule 16:17: BID, 0 [place] 00 Refill(s) cephalexin 0 Yes 500 mg [...] PO, l Oral Tablet 16:16: Bedtime, 0 [place] [Lipitor] 00 Refill(s) duloxetine Yes 60 mg = 1 Me moria 60 MG 1-07 cap, PO, l Enteric 16:16: Daily, 0 [place] n [place] 00 Refill(s) Capsule [Cymbalta] atorvastati 0 Yes 40 mg = 1 M emoria n 40 MG 1-07 tab, PO, l Oral Tablet 16:16: Bedtime, 0 [place] [Lipitor] 00 Refill(s) duloxetine Yes 60 mg = 1 Me mor[place] 60 MG 1-07 cap, PO, l Enteric 16:16: Daily, 0 [place] 00 Refill(s) Capsule [Cymbalta] atorvastati Yes 40 mg = 1 M emoria n 40 MG 1-07 tab, PO, l Oral Tablet 16:16: Bedtime, 0 [place] [Lipitor] 00 Refill(s) duloxetine Yes 60 mg [...] PO, l Oral Tablet 16:16: Bedtime, 0 [place] [Lipitor] 00 Refill(s) duloxetine Yes 60 mg = 1 Me mor[place] 60 MG 1-07 cap, PO, l Enteric 16:16: Daily, 0 [place] Co[place] 00 Refill(s) Capsule [Cymbalta] atorvastati Yes 40 mg = 1 M emoria n 40 MG 1-07 tab, PO, l Oral Tablet 16:16: Bedtime, 0 [place] [Lipitor] 00 Refill(s) duloxetine Yes 60 mg [...] PO, l Oral Tablet 16:16: Bedtime, 0 [place] [Lipitor] 00 Refill(s) duloxetine Yes 60 mg [...] PO, l Oral Tablet 16:16: Bedtime, 0 [place] [Lipitor] 00 Refill(s) duloxetine Yes 60 mg [...] PO, l Oral Tablet 16:16: Bedtime, 0 [place] [Lipitor] 00 Refill(s) duloxetine Yes 60 mg = 1 Me [place] 60 MG 1-07 cap, PO, l Enteric 16:16: Daily, 0 [place] Co[place] 00 Refill(s) Capsule [Cymbalta] atorvastati Yes 40 mg = 1 M emoria n 40 MG 1-07 tab, PO, l Oral Tablet 16:16: Bedtime, 0 [place] [Lipitor] 00 Refill(s) duloxetine Yes 60 mg = 1 Me mor[place] 60 MG 1-07 cap, PO, l Enteric 16:16: Daily, 0 [place] 00 Refill(s) Capsule [Cymbalta] atorvastati Yes 40 mg = 1 M emoria n 40 MG 1-07 tab, PO, l Oral Tablet 16:16: Bedtime, 0 [place] [Lipitor] 00 Refill(s) duloxetine Yes 60 mg = 1 Me [place] 60 MG 1-07 cap, PO, l Enteric 16:16: Daily, 0 [place] 00 Refill(s) Capsule [Cymbalta] atorvastati Yes 40 mg = 1 M emoria n 40 MG 1-07 tab, PO, l Oral Tablet 16:16: Bedtime, 0 [place] [Lipitor] 00 Refill(s) duloxetine Yes 60 mg [...] PO, l Oral Tablet 16:16: Bedtime, 0 [place] [Lipitor] 00 Refill(s) duloxetine Yes 60 mg = 1 Me [place] 60 MG 1-07 cap, PO, l Enteric 16:16: Daily, 0 [place] Co[place] 00 Refill(s) Capsule [Cymbalta] atorvastati Yes 40 mg = 1 M emoria n 40 MG 1-07 tab, PO, l Oral Tablet 16:16: Bedtime, 0 [place] [Lipitor] 00 Refill(s) duloxetine Yes 60 mg [...] PO, l Oral Tablet 16:16: Bedtime, 0 [place] [Lipitor] 00 Refill(s) duloxetine Yes 60 mg = 1 Me [place] 60 MG 1-07 cap, PO, l Enteric 16:16: Daily, 0 [place] Co[place] 00 Refill(s) Capsule [Cymbalta] atorvastati Yes 40 mg = 1 M emoria n 40 MG 1-07 tab, PO, l Oral Tablet 16:16: Bedtime, 0 [place] [Lipitor] 00 Refill(s) duloxetine Yes 60 mg = 1 Me [place] 60 MG 1-07 cap, PO, l Enteric 16:16: Daily, 0 [place] Co[place] 00 Refill(s) Capsule [Cymbalta] atorvastati Yes 40 mg = 1 M [place] n 40 MG 1-07 tab, PO, l Oral Tablet 16:16: Bedtime, 0 [place] [Lipitor] 00 Refill(s) duloxetine Yes 60 mg [...] PO, l Oral Tablet 16:16: Bedtime, 0 [place] [Lipitor] 00 Refill(s) duloxetine Yes 60 mg = 1 Me moria 60 MG 1-07 cap, PO, l Enteric 16:16: Daily, 0 [place] n Coated 00 Refill(s) Capsule [Cymbalta] atorvastati Yes 40 mg = 1 M emoria n 40 MG 1-07 tab, PO, l Oral Tablet 16:16: Bedtime, 0 [place] [Lipitor] 00 Refill(s) duloxetine Yes 60 mg = 1 Me moria 60 MG 1-07 cap, PO, l Enteric 16:16: Daily, 0 [place] n Coated 00 Refill(s) Capsule [Cymbalta] atorvastati Yes 40 mg = 1 M emoria n 40 MG 1-07 tab, PO, l Oral Tablet 16:16: Bedtime, 0 [place] [Lipitor] 00 Refill(s) duloxetine Yes 60 mg [...] PO, l Oral Tablet 16:16: Bedtime, 0 [place] [Lipitor] 00 Refill(s) duloxetine Yes 60 mg [...] PO, l Oral Tablet 16:16: Bedtime, 0 [place] [Lipitor] 00 Refill(s) duloxetine Yes 60 mg [...] PO, l Oral Tablet 16:16: Bedtime, 0 [place] [Lipitor] 00 Refill(s) duloxetine Yes 60 mg = 1 Me moria 60 MG 1-07 cap, PO, l Enteric 16:16: Daily, 0 [place] n Coated 00 Refill(s) Capsule [Cymbalta] atorvastati Yes 40 mg = 1 M emoria n 40 MG 1-07 tab, PO, l Oral Tablet 16:16: Bedtime, 0 [place] [Lipitor] 00 Refill(s) duloxetine Yes 60 mg [...] PO, l Oral Tablet 16:16: Bedtime, 0 [place] [Lipitor] 00 Refill(s) duloxetine Yes 60 mg = 1 Me moria 60 MG 1-07 cap, PO, l Enteric 16:16: Daily, 0 [place] n Coated 00 Refill(s) Capsule [Cymbalta] atorvastati Yes 40 mg = 1 M emoria n 40 MG 1-07 tab, PO, l Oral Tablet 16:16: Bedtime, 0 [place] [Lipitor] 00 Refill(s) duloxetine Yes 60 mg [...] PO, l Oral Tablet 16:16: Bedtime, 0 [place] [Lipitor] 00 Refill(s) duloxetine Yes 60 mg [...] PO, l Oral Tablet 16:16: Bedtime, 0 [place] [Lipitor] 00 Refill(s) duloxetine Yes 60 mg [...] PO, l Oral Tablet 16:16: Bedtime, 0 [place] [Lipitor] 00 Refill(s) duloxetine Yes 60 mg = 1 Me moria 60 MG 1-07 cap, PO, l Enteric 16:16: Daily, 0 [place] n Coated 00 Refill(s) Capsule [Cymbalta] atorvastati Yes 40 mg = 1 M emoria n 40 MG 1-07 tab, PO, l Oral Tablet 16:16: Bedtime, 0 [place] [Lipitor] 00 Refill(s) duloxetine Yes 60 mg [...] PO, l Oral Tablet 16:16: Bedtime, 0 [place] [Lipitor] 00 Refill(s) duloxetine Yes 60 mg [...] PO, l Oral Tablet 16:16: Bedtime, 0 [place] [Lipitor] 00 Refill(s) duloxetine Yes 60 mg [...] PO, l Oral Tablet 16:16: Bedtime, 0 [place] [Lipitor] 00 Refill(s) duloxetine Yes 60 mg = 1 Me moria 60 MG 1-07 cap, PO, l Enteric 16:16: Daily, 0 [place] n Coated 00 Refill(s) Capsule [Cymbalta] atorvastati Yes 40 mg = 1 M emoria n 40 MG 1-07 tab, PO, l Oral Tablet 16:16: Bedtime, 0 [place] [Lipitor] 00 Refill(s) duloxetine Yes 60 mg = 1 Me moria 60 MG 1-07 cap, PO, l Enteric 16:16: Daily, 0 [place] n Coated 00 Refill(s) Capsule [Cymbalta] atorvastati Yes 40 mg = 1 M emoria n 40 MG 1-07 tab, PO, l Oral Tablet 16:16: Bedtime, 0 [place] [Lipitor] 00 Refill(s) duloxetine Yes 60 mg [...] l oral tablet 16:15: PRN, 0 Herm flakiat 00 Refill(s) sucralfate 2016-0 Yes 1 gm [...] l oral tablet 16:15: PRN, 0 Herm falkita 00 Refill(s) sucralfate 2015-0 Yes 1 gm [...] [place] nn 00 Meals, 0 Refill(s) promethazin 2015- Yes 25 [...] tab, PO, l tablet 16:15: QID-Before [place] nn 00 Meals, 0 Refill(s) promethazin Yes [...] [place] nn 00 Meals, 0 Refill(s) Colchicine 2015-0 Yes 0.6 mg = 1 M emoria 0.6 MG Oral 07 tab, PO, l Tablet 16:14: PRN, 0 [place] [Colcrys] 00 Refill(s) Colchicine 2016-0 Yes 0.6 mg = 1 M emoria 0.6 MG Oral 07 tab, PO, l Tablet 16:14: PRN, 0 [place] [Colcrys] 00 Refill(s) Colchicine 2015- Yes 0.6 mg = 1 M emoria 0.6 MG Oral -07 tab, PO, l Tablet 16:14: PRN, 0 [place] [Colcrys] 00 Refill(s) Colchicine 2015-0 Yes 0.6 mg = 1 M emoria 0.6 MG Oral 07 tab, PO, l Tablet 16:14: PRN, 0 [place] [Colcrys] 00 Refill(s) Colchicine 2015-0 Yes 0.6 mg = 1 M emoria 0.6 MG Oral -07 tab, PO, l Tablet 16:14: PRN, 0 [place] [Colcrys] 00 Refill(s) Colchicine 2015-0 Yes 0.6 mg = 1 M emoria 0.6 MG Oral -07 tab, PO, l Tablet 16:14: PRN, 0 [place] [Colcrys] 00 Refill(s) Colchicine 2016-0 Yes 0.6 mg = 1 M emoria 0.6 MG Oral -07 tab, PO, l Tablet 16:14: PRN, 0 [place] [Colcrys] 00 Refill(s) Colchicine 2016-0 Yes 0.6 [...] tab, PO, l Tablet 16:14: PRN, 0 [place] [Colcrys] 00 Refill(s) Colchicine 2016-0 Yes 0.6 [...] tab, PO, l Tablet 16:14: PRN, 0 [place] [Colcrys] 00 Refill(s) Colchicine 2016-0 Yes 0.6 mg = 1 M emoria 0.6 MG Oral 1-07 tab, PO, l Tablet 16:14: PRN, 0 [place] [Colcrys] 00 Refill(s) Colchicine 2016-0 Yes 0.6 mg = 1 M emoria 0.6 MG Oral 1-07 tab, PO, l Tablet 16:14: PRN, 0 [place] [Colcrys] 00 Refill(s) Colchicine 2016-0 Yes 0.6 [...] tab, PO, l Tablet 16:14: PRN, 0 [place] [Colcrys] 00 Refill(s) Colchicine 2016-0 Yes 0.6 mg = 1 M emoria 0.6 MG Oral 1-07 tab, PO, l Tablet 16:14: PRN, 0 [place] [Colcrys] 00 Refill(s) Colchicine 2016-0 Yes 0.6 mg = 1 M emoria 0.6 MG Oral 1-07 tab, PO, l Tablet 16:14: PRN, 0 [place] [Colcrys] 00 Refill(s) Colchicine 2016-0 Yes 0.6 [...] tab, PO, l Tablet 16:14: PRN, 0 [place] [Colcrys] 00 Refill(s) Colchicine 2016-0 Yes 0.6 mg = 1 M emoria 0.6 MG Oral 1-07 tab, PO, l Tablet 16:14: PRN, 0 [place] [Colcrys] 00 Refill(s) Colchicine 2016-0 Yes 0.6 mg = 1 M emoria 0.6 MG Oral 1-07 tab, PO, l Tablet 16:14: PRN, 0 [place] [Colcrys] 00 Refill(s) Colchicine 2016-0 Yes 0.6 mg = 1 M emoria 0.6 MG Oral 1-07 tab, PO, l Tablet 16:14: PRN, 0 [place] [Colcrys] 00 Refill(s) Colchicine 2016-0 Yes 0.6 mg = 1 M emoria 0.6 MG Oral 1-07 tab, PO, l Tablet 16:14: PRN, 0 [place] [Colcrys] 00 Refill(s) Colchicine 2016-0 Yes 0.6 mg = 1 M emoria 0.6 MG Oral 1-07 tab, PO, l Tablet 16:14: PRN, 0 [place] [Colcrys] 00 Refill(s) Colchicine 2016-0 Yes 0.6 mg = 1 M emoria 0.6 MG Oral 1-07 tab, PO, l Tablet 16:14: PRN, 0 [place] [Colcrys] 00 Refill(s) Colchicine 2016-0 Yes 0.6 mg = 1 M emoria 0.6 MG Oral 1-07 tab, PO, l Tablet 16:14: PRN, 0 [place] [Colcrys] 00 Refill(s) Colchicine 2016-0 Yes 0.6 mg = 1 M emoria 0.6 MG Oral 1-07 tab, PO, l Tablet 16:14: PRN, 0 [place] [Colcrys] 00 Refill(s) Colchicine 2016-0 Yes 0.6 mg = 1 M emoria 0.6 MG Oral 1-07 tab, PO, l Tablet 16:14: PRN, 0 [place] [Colcrys] 00 Refill(s) Colchicine 2016-0 Yes 0.6 mg = 1 M emoria 0.6 MG Oral 1-07 tab, PO, l Tablet 16:14: PRN, 0 [place] [Colcrys] 00 Refill(s) Colchicine 2016-0 Yes 0.6 mg = 1 M emoria 0.6 MG Oral 1-07 tab, PO, l Tablet 16:14: PRN, 0 [place] [Colcrys] 00 Refill(s) Colchicine 2016-0 Yes 0.6 mg = 1 M emoria 0.6 MG Oral 1-07 tab, PO, l Tablet 16:14: PRN, 0 [place] [Colcrys] 00 Refill(s) Colchicine 2016-0 Yes 0.6 mg = 1 M emoria 0.6 MG Oral 1-07 tab, PO, l Tablet 16:14: PRN, 0 [place] [Colcrys] 00 Refill(s) Colchicine 2016-0 Yes 0.6 mg = 1 M emoria 0.6 MG Oral 1-07 tab, PO, l Tablet 16:14: PRN, 0 [place] [Colcrys] 00 Refill(s) Colchicine 2016-0 Yes 0.6 mg = 1 M emoria 0.6 MG Oral 1-07 tab, PO, l Tablet 16:14: PRN, 0 [place] [Colcrys] 00 Refill(s) Colchicine 2016-0 Yes 0.6 mg = 1 M emoria 0.6 MG Oral 1-07 tab, PO, l Tablet 16:14: PRN, 0 [place] [Colcrys] 00 Refill(s) Colchicine 2016-0 Yes 0.6 [...] tab, PO, l Tablet 16:14: PRN, 0 [place] [Colcrys] 00 Refill(s) Colchicine 2016-0 Yes 0.6 mg = 1 M emoria 0.6 MG Oral 1-07 tab, PO, l Tablet 16:14: PRN, 0 [place] [Colcrys] 00 Refill(s) Colchicine 2016-0 Yes 0.6 mg = 1 M emoria 0.6 MG Oral 1-07 tab, PO, l Tablet 16:14: PRN, 0 [place] [Colcrys] 00 Refill(s) Colchicine 2016-0 Yes 0.6 [...] tab, PO, l Tablet 16:14: PRN, 0 [place] [Colcrys] 00 Refill(s) Colchicine 2016-0 Yes 0.6 mg = 1 M emoria 0.6 MG Oral 1-07 tab, PO, l Tablet 16:14: PRN, 0 [place] [Colcrys] 00 Refill(s) Colchicine 2016-0 Yes 0.6 [...] tab, PO, l Tablet 16:14: PRN, 0 [place] [Colcrys] 00 Refill(s) Colchicine 2016-0 Yes 0.6 mg = 1 M emoria 0.6 MG Oral 1-07 tab, PO, l Tablet 16:14: PRN, 0 [place] [Colcrys] 00 Refill(s) Colchicine 2016-0 Yes 0.6 mg = 1 M emoria 0.6 MG Oral 1-07 tab, PO, l Tablet 16:14: PRN, 0 [place] [Colcrys] 00 Refill(s) Colchicine 2016-0 Yes 0.6 mg = 1 M emoria 0.6 MG Oral 1-07 tab, PO, l Tablet 16:14: PRN, 0 [place] [Colcrys] 00 Refill(s) Colchicine 2016-0 Yes 0.6 mg = 1 M emoria 0.6 MG Oral 1-07 tab, PO, l Tablet 16:14: PRN, 0 [place] [Colcrys] 00 Refill(s) Colchicine 2016-0 Yes 0.6 mg = 1 M emoria 0.6 MG Oral 1-07 tab, PO, l Tablet 16:14: PRN, 0 [place] [Colcrys] 00 Refill(s) Colchicine Yes 0.6 mg = 1 M emoria 0.6 MG Oral 1-07 tab, PO, l Tablet 16:14: PRN, 0 [place] [Colcrys] 00 Refill(s) allopurinol Yes 300 mg = 1 [facility] 300 mg oral 1-07 tab, PO, l tablet 16:13: Daily, 0 [place] 00 Refill(s) allopurinol Yes 300 mg = 1 [place] 300 mg oral 1-07 tab, PO, l tablet 16:13: Daily, 0 [place] 00 Refill(s) allopurinol Yes 300 mg = 1 [facility] 300 mg oral 1-07 tab, PO, l tablet 16:13: Daily, 0 [place] 00 Refill(s) allopurinol Yes 300 mg = 1 [facility] 300 mg oral 1-07 tab, PO, l tablet 16:13: Daily, 0 [place] 00 Refill(s) allopurinol Yes 300 mg = 1 [facility] 300 mg oral 1-07 tab, PO, l tablet 16:13: Daily, 0 [place] 00 Refill(s) allopurinol Yes 300 mg = 1 [facility] 300 mg oral 1-07 tab, PO, l tablet 16:13: Daily, 0 [place] 00 Refill(s) allopurinol Yes 300 mg = 1 [facility] 300 mg oral 1-07 tab, PO, l tablet 16:13: Daily, 0 [place] 00 Refill(s) allopurinol Yes 300 mg = 1 [place] 300 mg oral 1-07 tab, PO, l tablet 16:13: Daily, 0 [place] 00 Refill(s) allopurinol Yes 300 mg = 1 [facility] 300 mg oral 1-07 tab, PO, l tablet 16:13: Daily, 0 [place] 00 Refill(s) allopurinol Yes 300 mg = 1 [facility] 300 mg oral 1-07 tab, PO, l tablet 16:13: Daily, 0 [place] 00 Refill(s) allopurinol Yes 300 mg = 1 [facility] 300 mg oral 1-07 tab, PO, l tablet 16:13: Daily, 0 [place] 00 Refill(s) allopurinol Yes 300 mg = 1 [facility] 300 mg oral 1-07 tab, PO, l tablet 16:13: Daily, 0 [place] 00 Refill(s) allopurinol Yes 300 mg = 1 [facility] 300 mg oral 1-07 tab, PO, l tablet 16:13: Daily, 0 [place] 00 Refill(s) allopurinol Yes 300 mg = 1 [facility] 300 mg oral 1-07 tab, PO, l tablet 16:13: Daily, 0 [place] 00 Refill(s) allopurinol Yes 300 mg = 1 [facility] 300 mg oral 1-07 tab, PO, l tablet 16:13: Daily, 0 [place] 00 Refill(s) allopurinol Yes 300 mg = 1 [facility] 300 mg oral 1-07 tab, PO, l tablet 16:13: Daily, 0 [place] 00 Refill(s) allopurinol Yes 300 mg = 1 [facility] 300 mg oral 1-07 tab, PO, l tablet 16:13: Daily, 0 [place] 00 Refill(s) allopurinol Yes 300 mg = 1 [facility] 300 mg oral 1-07 tab, PO, l tablet 16:13: Daily, 0 [place] 00 Refill(s) allopurinol Yes 300 mg = 1 [facility] 300 mg oral 1-07 tab, PO, l tablet 16:13: Daily, 0 [place] 00 Refill(s) allopurinol Yes 300 mg = 1 [facility] 300 mg oral 1-07 tab, PO, l tablet 16:13: Daily, 0 [place] 00 Refill(s) allopurinol Yes 300 mg = 1 [facility] 300 mg oral 1-07 tab, PO, l tablet 16:13: Daily, 0 [place] 00 Refill(s) allopurinol 0 Yes 300 mg = 1 [facility] 300 mg oral 1-07 tab, PO, l tablet 16:13: Daily, 0 [place] 00 Refill(s) allopurinol Yes 300 mg = 1 [facility] 300 mg oral 1-07 tab, PO, l tablet 16:13: Daily, 0 [place] 00 Refill(s) allopurinol Yes 300 mg = 1 [facility] 300 mg oral 1-07 tab, PO, l tablet 16:13: Daily, 0 [place] 00 Refill(s) allopurinol Yes 300 mg = 1 [facility] 300 mg oral 1-07 tab, PO, l tablet 16:13: Daily, 0 [place] 00 Refill(s) allopurinol Yes 300 mg = 1 [facility] 300 mg oral 1-07 tab, PO, l tablet 16:13: Daily, 0 [place] 00 Refill(s) allopurinol Yes 300 mg = 1 [place] 300 mg oral 1-07 tab, PO, l tablet 16:13: Daily, 0 [place] 00 Refill(s) allopurinol Yes 300 mg = 1 [facility] 300 mg oral 1-07 tab, PO, l tablet 16:13: Daily, 0 [place] 00 Refill(s) allopurinol Yes 300 mg = 1 [facility] 300 mg oral 1-07 tab, PO, l tablet 16:13: Daily, 0 [place] 00 Refill(s) allopurinol Yes 300 mg = 1 [facility] 300 mg oral 1-07 tab, PO, l tablet 16:13: Daily, 0 [place] 00 Refill(s) allopurinol Yes 300 mg = 1 [facility] 300 mg oral 1-07 tab, PO, l tablet 16:13: Daily, 0 [place] 00 Refill(s) allopurinol Yes 300 mg = 1 [facility] 300 mg oral 1-07 tab, PO, l tablet 16:13: Daily, 0 [place] 00 Refill(s) allopurinol 0 Yes 300 mg = 1 [facility] 300 mg oral 1-07 tab, PO, l tablet 16:13: Daily, 0 [place] 00 Refill(s) allopurinol 0 Yes 300 mg = 1 [facility] 300 mg oral 1-07 tab, PO, l tablet 16:13: Daily, 0 [place] 00 Refill(s) allopurinol 0 Yes 300 mg = 1 [facility] 300 mg oral 1-07 tab, PO, l tablet 16:13: Daily, 0 [place] 00 Refill(s) allopurinol 0 Yes 300 mg = 1 [facility] 300 mg oral 1-07 tab, PO, l tablet 16:13: Daily, 0 [place] 00 Refill(s) allopurinol Yes 300 mg = 1 [facility] 300 mg oral 1-07 tab, PO, l tablet 16:13: Daily, 0 [place] 00 Refill(s) allopurinol Yes 300 mg = 1 [facility] 300 mg oral 1-07 tab, PO, l tablet 16:13: Daily, 0 [place] 00 Refill(s) allopurinol Yes 300 mg = 1 [facility] 300 mg oral 1-07 tab, PO, l tablet 16:13: Daily, 0 [place] 00 Refill(s) allopurinol Yes 300 mg = 1 [place] 300 mg oral 1-07 tab, PO, l tablet 16:13: Daily, 0 [place] 00 Refill(s) allopurinol Yes 300 mg = 1 [place] 300 mg oral 1-07 tab, PO, l tablet 16:13: Daily, 0 [place] 00 Refill(s) allopurinol Yes 300 mg = 1 [place] 300 mg oral 1-07 tab, PO, l tablet 16:13: Daily, 0 [place] 00 Refill(s) allopurinol Yes 300 mg = 1 [place] 300 mg oral 1-07 tab, PO, l tablet 16:13: Daily, 0 [place] 00 Refill(s) allopurinol Yes 300 mg = 1 [place] 300 mg oral 1-07 tab, PO, l tablet 16:13: Daily, 0 [place] 00 Refill(s) allopurinol Yes 300 mg = 1 [facility] 300 mg oral 1-07 tab, PO, l tablet 16:13: Daily, 0 [place] 00 Refill(s) allopurinol Yes 300 mg = 1 [facility] 300 mg oral 1-07 tab, PO, l tablet 16:13: Daily, 0 [place] 00 Refill(s) allopurinol 0 Yes 300 mg = 1 [place] 300 mg oral 1-07 tab, PO, l tablet 16:13: Daily, 0 [place] 00 Refill(s) allopurinol Yes 300 mg = 1 [facility] 300 mg oral 1-07 tab, PO, l tablet 16:13: Daily, 0 [place] 00 Refill(s) allopurinol Yes 300 mg = 1 [facility] 300 mg oral 1-07 tab, PO, l tablet 16:13: Daily, 0 [place] 00 Refill(s) allopurinol Yes 300 mg = 1 [place] 300 mg oral 1-07 tab, PO, l tablet 16:13: Daily, 0 [place] 00 Refill(s) allopurinol Yes 300 mg = 1 [facility] 300 mg oral 1-07 tab, PO, l tablet 16:13: Daily, 0 [place] 00 Refill(s) allopurinol Yes 300 mg = 1 [facility] 300 mg oral 1-07 tab, PO, l tablet 16:13: Daily, 0 [place] 00 Refill(s) allopurinol Yes 300 mg = 1 [facility] 300 mg oral 1-07 tab, PO, l tablet 16:13: Daily, 0 [place] 00 Refill(s) allopurinol Yes 300 mg = 1 [facility] 300 mg oral 1-07 tab, PO, l tablet 16:13: Daily, 0 [place] 00 Refill(s) allopurinol Yes 300 mg = 1 [facility] 300 mg oral 1-07 tab, PO, l tablet 16:13: Daily, 0 [place] 00 Refill(s) allopurinol Yes 300 mg = [...] tab, PO, l tablet 16:13: Daily, 0 [place] 00 Refill(s) allopurinol 0 Yes 300 mg = 1 [facility] 300 mg oral 1-07 tab, PO, l tablet 16:13: Daily, 0 [place] 00 Refill(s) allopurinol 0 Yes 300 mg = 1 [facility] 300 mg oral 1-07 tab, PO, l tablet 16:13: Daily, 0 [place] 00 Refill(s) allopurinol Yes 300 mg = 1 [facility] 300 mg oral 1-07 tab, PO, l tablet 16:13: Daily, 0 [place] 00 Refill(s) allopurinol 0 Yes 300 mg = 1 [facility] 300 mg oral 1-07 tab, PO, l tablet 16:13: Daily, 0 [place] 00 Refill(s) allopurinol Yes 300 mg = 1 [facility] 300 mg oral 1-07 tab, PO, l tablet 16:13: Daily, 0 [place] 00 Refill(s) allopurinol Yes 300 mg = 1 [facility] 300 mg oral 1-07 tab, PO, l tablet 16:13: Daily, 0 [place] 00 Refill(s) allopurinol Yes 300 mg = 1 [facility] 300 mg oral 1-07 tab, PO, l tablet 16:13: Daily, 0 [place] 00 Refill(s) allopurinol Yes 300 mg = 1 [facility] 300 mg oral 1-07 tab, PO, l tablet 16:13: Daily, 0 [place] 00 Refill(s) allopurinol Yes 300 mg = 1 [facility] 300 mg oral 1-07 tab, PO, l tablet 16:13: Daily, 0 [place] 00 Refill(s) allopurinol 0 Yes 300 mg = 1 [facility] 300 mg oral 1-07 tab, PO, l tablet 16:13: Daily, 0 [place] 00 Refill(s) allopurinol Yes 300 mg = 1 [facility] 300 mg oral 1-07 tab, PO, l tablet 16:13: Daily, 0 [place] 00 Refill(s) allopurinol 0 Yes 300 mg = 1 [facility] 300 mg oral 1-07 tab, PO, l tablet 16:13: Daily, 0 [place] 00 Refill(s) Unknown 0 Yes Refill(s) [facility]or ia Home 1-07 0 l Medication 16:12: [place] Unknown 0 Yes Refill(s) Memor ia Home 1-07 0 l Medication 16:12: [place] Unknown 0 [...] Home 1-07 0 l Medication 16:12: pantoprazol 2015- Yes 40 mg = 1 [...] tab, PO, l Enteric 16:11: Daily, 0 [place] n Coated 00 Refill(s) Tablet [Protonix] pantoprazol [...] l de 50 MG 16:10: TID, 0 [place] Oral Tablet 00 Refill(s) Hydralazine Yes 50 mg = 1 M emoria Hydrochlori 1-07 tab, PO, l de 50 MG 16:10: TID, 0 [place] Oral Tablet 00 Refill(s) Hydralazine Yes 50 mg = 1 M emoria Hydrochlori 1-07 tab, PO, l de 50 MG 16:10: TID, 0 [place] Oral Tablet 00 Refill(s) Hydralazine Yes 50 mg = 1 M emoria Hydrochlori 1-07 tab, PO, l de 50 MG 16:10: TID, 0 [place] Oral Tablet 00 Refill(s) Hydralazine 2015-0 Yes 50 mg = 1 M emoria Hydrochlori -07 tab, PO, l de 50 MG 16:10: TID, 0 [place] Oral Tablet 00 Refill(s) Hydralazine 2015-0 Yes [...] l de 50 MG 16:10: TID, 0 [place] Oral Tablet 00 Refill(s) Hydralazine 0 Yes 50 mg = 1 M emoria Hydrochlori 07 tab, PO, l de 50 MG 16:10: TID, 0 [place] Oral Tablet 00 Refill(s) Hydralazine 0 Yes 50 mg = 1 M emoria Hydrochlori -07 tab, PO, l de 50 MG 16:10: TID, 0 [place] Oral Tablet 00 Refill(s) Hydralazine 2015-0 Yes 50 mg = 1 M emoria Hydrochlori -07 tab, PO, l de 50 MG 16:10: TID, 0 [place] Oral Tablet 00 Refill(s) Hydralazine 2015-0 Yes 50 mg = 1 M emoria Hydrochlori 1-07 tab, PO, l de 50 MG 16:10: TID, 0 [place] Oral Tablet 00 Refill(s) Hydralazine 0 Yes 50 mg = 1 M emoria Hydrochlori 1-07 tab, PO, l de 50 MG 16:10: TID, 0 [place] Oral Tablet 00 Refill(s) Hydralazine 0 Yes [...] l de 50 MG 16:10: TID, 0 [place] Oral Tablet 00 Refill(s) Hydralazine 0 Yes 50 mg = 1 M emoria Hydrochlori 07 tab, PO, l de 50 MG 16:10: TID, 0 [place] Oral Tablet 00 Refill(s) Hydralazine 0 Yes 50 mg = 1 M emoria Hydrochlori -07 tab, PO, l de 50 MG 16:10: TID, 0 [place] Oral Tablet 00 Refill(s) Hydralazine 0 Yes 50 mg = 1 M emoria Hydrochlori -07 tab, PO, l de 50 MG 16:10: TID, 0 [place] Oral Tablet 00 Refill(s) Hydralazine 0 Yes 50 mg = 1 M emoria Hydrochlori -07 tab, PO, l de 50 MG 16:10: TID, 0 [place] Oral Tablet 00 Refill(s) Hydralazine 0 Yes 50 mg = 1 M emoria Hydrochlori -07 tab, PO, l de 50 MG 16:10: TID, 0 [place] Oral Tablet 00 Refill(s) Hydralazine 2015-0 Yes 50 mg = 1 M emoria Hydrochlori -07 tab, PO, l de 50 MG 16:10: TID, 0 [place] Oral Tablet 00 Refill(s) Hydralazine 2015-0 Yes 50 mg = 1 M emoria Hydrochlori -07 tab, PO, l de 50 MG 16:10: TID, 0 [place] Oral Tablet 00 Refill(s) Hydralazine 2016-0 Yes [...] l de 50 MG 16:10: TID, 0 [place] Oral Tablet 00 Refill(s) Hydralazine 0 Yes 50 mg = 1 M [place] Hydrochlori 07 tab, PO, l de 50 MG 16:10: TID, 0 [place] Oral Tablet 00 Refill(s) Hydralazine 2015-0 Yes 50 mg = 1 M emoria Hydrochlori 07 tab, PO, l de 50 MG 16:10: TID, 0 [place] Oral Tablet 00 Refill(s) Hydralazine 2016-0 Yes 50 mg = 1 M emoria Hydrochlori -07 tab, PO, l de 50 MG 16:10: TID, 0 [place] Oral Tablet 00 Refill(s) Hydralazine 2015-0 Yes 50 mg = 1 M emoria Hydrochlori -07 tab, PO, l de 50 MG 16:10: TID, 0 [place] Oral Tablet 00 Refill(s) Hydralazine 2015-0 Yes [...] l de 50 MG 16:10: TID, 0 [place] Oral Tablet 00 Refill(s) Hydralazine 0 Yes 50 mg = 1 M [place] Hydrochlori 07 tab, PO, l de 50 MG 16:10: TID, 0 [place] Oral Tablet 00 Refill(s) Hydralazine 0 Yes 50 mg = 1 M emoria Hydrochlori 07 tab, PO, l de 50 MG 16:10: TID, 0 [place] Oral Tablet 00 Refill(s) Hydralazine 0 Yes 50 mg = 1 M emoria Hydrochlori 07 tab, PO, l de 50 MG 16:10: TID, 0 [place] Oral Tablet 00 Refill(s) Hydralazine 0 Yes 50 mg = 1 M [place]oria Hydrochlori 07 tab, PO, l de 50 MG 16:10: TID, 0 [place] Oral Tablet 00 Refill(s) Hydralazine 0 Yes 50 mg = 1 M emoria Hydrochlori 07 tab, PO, l de 50 MG 16:10: TID, 0 [place] Oral Tablet 00 Refill(s) Hydralazine 0 Yes 50 mg = 1 M emoria Hydrochlori 07 tab, PO, l de 50 MG 16:10: TID, 0 [place] Oral Tablet 00 Refill(s) Hydralazine 0 Yes 50 mg = 1 M emoria Hydrochlori -07 tab, PO, l de 50 MG 16:10: TID, 0 [place] Oral Tablet 00 Refill(s) Hydralazine 0 Yes 50 mg = 1 M emoria Hydrochlori -07 tab, PO, l de 50 MG 16:10: TID, 0 [place] Oral Tablet 00 Refill(s) Hydralazine 0 Yes 50 mg = 1 M emoria Hydrochlori -07 tab, PO, l de 50 MG 16:10: TID, 0 [place] Oral Tablet 00 Refill(s) Hydralazine 0 Yes 50 mg = 1 M [facility] Hydrochlori 1-07 tab, PO, l de 50 MG 16:10: TID, 0 [place] Oral Tablet 00 Refill(s) Hydralazine 2016-0 Yes [...] l de 50 MG 16:10: TID, 0 [place] Oral Tablet 00 Refill(s) Hydralazine 0 Yes 50 mg = 1 M [place] Hydrochlori -07 tab, PO, l de 50 MG 16:10: TID, 0 [place] Oral Tablet 00 Refill(s) Hydralazine 2016-0 Yes 50 mg = 1 M emoria Hydrochlori -07 tab, PO, l de 50 MG 16:10: TID, 0 [place] Oral Tablet 00 Refill(s) Hydralazine 2016-0 Yes [...] l de 50 MG 16:10: TID, 0 [place] Oral Tablet 00 Refill(s) Hydralazine 0 Yes 50 mg = 1 M emoria Hydrochlori -07 tab, PO, l de 50 MG 16:10: TID, 0 [place] Oral Tablet 00 Refill(s) Hydralazine 0 Yes [...] l de 50 MG 16:10: TID, 0 [place] Oral Tablet 00 Refill(s) Hydralazine 0 Yes 50 mg = 1 M [place] Hydrochlori 07 tab, PO, l de 50 MG 16:10: TID, 0 [place] Oral Tablet 00 Refill(s) Hydralazine 0 Yes 50 mg = 1 M [facility] Hydrochlori 07 tab, PO, l de 50 MG 16:10: TID, 0 [place] Oral Tablet 00 Refill(s) Hydralazine 0 Yes 50 mg = 1 M [place] Hydrochlori 07 tab, PO, l de 50 MG 16:10: TID, 0 [place] Oral Tablet 00 Refill(s) Hydralazine 0 Yes 50 mg = 1 M [place] Hydrochlori -07 tab, PO, l de 50 MG 16:10: TID, 0 [place] Oral Tablet 00 Refill(s) Hydralazine 0 Yes [...] 0 [place] Oral Tablet 00 Refill(s) Hydralazine 2016 Yes [...] l de 50 MG 16:10: TID, 0 [place] Oral Tablet 00 Refill(s) lisinopril Yes 10 mg = 1 Me moria 10 mg oral 1-07 tab, PO, l tablet 16:09: BID, 0 [place] 00 Refill(s) lisinopril Yes 10 mg = 1 Me moria 10 mg oral 1-07 tab, PO, l tablet 16:09: BID, 0 [place] 00 Refill(s) lisinopril Yes 10 mg = 1 Me moria 10 mg oral 1-07 tab, PO, l tablet 16:09: BID, 0 [place] 00 Refill(s) lisinopril 0 Yes 10 mg = 1 [facility] [place] 10 mg oral 1-07 tab, PO, l tablet 16:09: BID, 0 [place] 00 Refill(s) lisinopril 0 Yes 10 mg = 1 [facility] [place] 10 mg oral 1-07 tab, PO, l tablet 16:09: BID, 0 [place] 00 Refill(s) lisinopril 0 Yes 10 mg = 1 [place] 10 mg oral 1-07 tab, PO, l tablet 16:09: BID, 0 [place] 00 Refill(s) lisinopril 2015-0 Yes 10 mg = 1 [place] 10 mg oral 1-07 tab, PO, l tablet 16:09: BID, 0 [place] 00 Refill(s) lisinopril Yes 10 mg = 1 [place] 10 mg oral 1-07 tab, PO, l tablet 16:09: BID, 0 [place] 00 Refill(s) lisinopril 2016-0 Yes 10 mg = 1 [place] 10 mg oral 1-07 tab, PO, l tablet 16:09: BID, 0 [place] 00 Refill(s) lisinopril 2016-0 Yes 10 mg = 1 [place] 10 mg oral 1-07 tab, PO, l tablet 16:09: BID, 0 [place] 00 Refill(s) lisinopril 2016-0 Yes 10 mg = 1 [place] 10 mg oral 1-07 tab, PO, l tablet 16:09: BID, 0 [place] 00 Refill(s) lisinopril 2016-0 Yes 10 mg = 1 [place] 10 mg oral 1-07 tab, PO, l tablet 16:09: BID, 0 [place] 00 Refill(s) lisinopril 2016-0 Yes 10 mg = 1 [place] 10 mg oral 1-07 tab, PO, l tablet 16:09: BID, 0 [place] 00 Refill(s) lisinopril 2016-0 Yes 10 mg = 1 [place] 10 mg oral 1-07 tab, PO, l tablet 16:09: BID, 0 [place] 00 Refill(s) lisinopril 2016-0 Yes 10 mg [...] tab, PO, l tablet 16:09: BID, 0 [place] 00 Refill(s) lisinopril 2016-0 Yes 10 mg = 1 [place] 10 mg oral 1-07 tab, PO, l tablet 16:09: BID, 0 [place] 00 Refill(s) lisinopril 2016-0 Yes 10 mg [...] tab, PO, l tablet 16:09: BID, 0 [place] 00 Refill(s) lisinopril 2016-0 Yes 10 mg = 1 [place] 10 mg oral 1-07 tab, PO, l tablet 16:09: BID, 0 [place] 00 Refill(s) lisinopril 2016-0 Yes 10 mg [...] tab, PO, l tablet 16:09: BID, 0 [place] 00 Refill(s) lisinopril 2016-0 Yes 10 mg = 1 [place] 10 mg oral 1-07 tab, PO, l tablet 16:09: BID, 0 [place] 00 Refill(s) lisinopril 2016-0 Yes 10 mg [...] tab, PO, l tablet 16:09: BID, 0 [place] 00 Refill(s) lisinopril 2016-0 Yes 10 mg = 1 [place] 10 mg oral 1-07 tab, PO, l tablet 16:09: BID, 0 [place] 00 Refill(s) lisinopril 2016-0 Yes 10 mg [...] tab, PO, l tablet 16:09: BID, 0 [place] 00 Refill(s) lisinopril 2016-0 Yes 10 mg = 1 [place] 10 mg oral 1-07 tab, PO, l tablet 16:09: BID, 0 [place] 00 Refill(s) lisinopril 2016-0 Yes 10 mg = 1 [place] 10 mg oral 1-07 tab, PO, l tablet 16:09: BID, 0 [place] 00 Refill(s) lisinopril 2016-0 Yes 10 mg = 1 [place] 10 mg oral 1-07 tab, PO, l tablet 16:09: BID, 0 [place] 00 Refill(s) lisinopril 2016-0 Yes 10 mg = 1 [place] 10 mg oral 1-07 tab, PO, l tablet 16:09: BID, 0 [place] 00 Refill(s) lisinopril 2016-0 Yes 10 mg = 1 [place] 10 mg oral 1-07 tab, PO, l tablet 16:09: BID, 0 [place] 00 Refill(s) lisinopril 2016-0 Yes 10 mg = 1 [place] 10 mg oral 1-07 tab, PO, l tablet 16:09: BID, 0 [place] 00 Refill(s) lisinopril 2016-0 Yes 10 mg = 1 Me moria 10 mg oral 1-07 tab, PO, l tablet 16:09: BID, 0 [place] 00 Refill(s) lisinopril 2016-0 Yes 10 mg = 1 Me [facility] 10 mg oral 1-07 tab, PO, l tablet 16:09: BID, 0 [place] 00 Refill(s) lisinopril 2016-0 Yes 10 mg = 1 Me [facility] 10 mg oral 1-07 tab, PO, l tablet 16:09: BID, 0 [place] 00 Refill(s) lisinopril 2016-0 Yes 10 mg = 1 Me [place] 10 mg oral 1-07 tab, PO, l tablet 16:09: BID, 0 [place] 00 Refill(s) lisinopril 2016-0 Yes 10 mg = 1 Me [place] 10 mg oral 1-07 tab, PO, l tablet 16:09: BID, 0 [place] 00 Refill(s) lisinopril 2016-0 Yes 10 mg = 1 [facility] [place] 10 mg oral 1-07 tab, PO, l tablet 16:09: BID, 0 [place] 00 Refill(s) lisinopril 2015-0 Yes 10 mg [...] tab, PO, l tablet 16:09: BID, 0 [place] 00 Refill(s) lisinopril 2015-0 Yes 10 mg = 1 [place] 10 mg oral 1-07 tab, PO, l tablet 16:09: BID, 0 [place] 00 Refill(s) lisinopril 2016-0 Yes 10 mg [...] tab, PO, l tablet 16:09: BID, 0 [place] 00 Refill(s) lisinopril 2016-0 Yes 10 mg = 1 [facility] [place] 10 mg oral 1-07 tab, PO, l tablet 16:09: BID, 0 [place] 00 Refill(s) lisinopril 2016-0 Yes 10 mg [...] tab, PO, l tablet 16:09: BID, 0 [place] 00 Refill(s) lisinopril 2016-0 Yes 10 mg = 1 [place] 10 mg oral 1-07 tab, PO, l tablet 16:09: BID, 0 [place] 00 Refill(s) lisinopril 2016-0 Yes 10 mg = 1 [place] 10 mg oral 1-07 tab, PO, l tablet 16:09: BID, 0 [place] 00 Refill(s) lisinopril 2016-0 Yes 10 mg = 1 Me [place] 10 mg oral 1-07 tab, PO, l tablet 16:09: BID, 0 [place] 00 Refill(s) lisinopril 2016-0 Yes 10 mg = 1 Me [place] 10 mg oral 1-07 tab, PO, l tablet 16:09: BID, 0 [place] 00 Refill(s) lisinopril 2016-0 Yes 10 mg = 1 Me [place] 10 mg oral 1-07 tab, PO, l tablet 16:09: BID, 0 [place] 00 Refill(s) lisinopril 2016-0 Yes 10 mg = 1 [place] 10 mg oral 1-07 tab, PO, l tablet 16:09: BID, 0 [place] 00 Refill(s) lisinopril 2016-0 Yes 10 mg = 1 [facility] [place] 10 mg oral 1-07 tab, PO, l tablet 16:09: BID, 0 [place] 00 Refill(s) lisinopril 2016-0 Yes 10 mg = 1 [facility] [place] 10 mg oral 1-07 tab, PO, l tablet 16:09: BID, 0 [place] 00 Refill(s) lisinopril 2016-0 Yes 10 mg [...] tab, PO, l tablet 16:09: BID, 0 [place] 00 Refill(s) Amlodipine 2015-0 Yes 10 mg = 1 Me [place] 10 MG Oral -07 tab, PO, l Tablet 16:08: Daily, 0 [place] [Norvasc] 00 Refill(s) Hydrochloro 2016-0 Yes 25 mg, PO, Memoria thiazide 07 Daily, 0 l 16:08: Refill(s) [place] 00 Amlodipine 2015-0 Yes 10 mg = 1 Me [place] 10 MG Oral - tab, PO, l Tablet 16:08: Daily, 0 [place] [Norvasc] 00 Refill(s) Hydrochloro 2016-0 Yes 25 mg, PO, Memoria thiazide 11-07 Daily, 0 l 16:08: Refill(s) [place] 00 Amlodipine 2015-0 Yes 10 mg = 1 Me [place] 10 MG Oral - tab, PO, l Tablet 16:08: Daily, 0 [place] [Norvasc] 00 Refill(s) Hydrochloro 2016-0 Yes 25 mg, PO, Memoria thiazide 11-07 Daily, 0 l 16:08: Refill(s) [place] 00 Amlodipine 2015-0 Yes 10 mg = 1 Me [place] 10 MG Oral -07 tab, PO, l Tablet 16:08: Daily, 0 [place] [Norvasc] 00 Refill(s) Hydrochloro 2016-0 Yes 25 mg, PO, Memoria thiazide 07 Daily, 0 l 16:08: Refill(s) [place] 00 Amlodipine 2016-0 Yes 10 mg = 1 Me [place] 10 MG Oral -07 tab, PO, l Tablet 16:08: Daily, 0 [place] [Norvasc] 00 Refill(s) Hydrochloro 2016-0 Yes 25 mg, PO, Memoria thiazide 1-07 Daily, 0 l 16:08: Refill(s) Amlodipine 2016-0 Yes 10 mg = 1 Me [place] 10 MG Oral -07 tab, PO, l Tablet 16:08: Daily, 0 [place] [Norvasc] 00 Refill(s) Hydrochloro 2016-0 Yes 25 [...] tab, PO, l Tablet 16:08: Daily, 0 [place] [Norvasc] 00 Refill(s) Hydrochloro 2016-0 Yes 25 [...] tab, PO, l Tablet 16:08: Daily, 0 [place] [Norvasc] 00 Refill(s) Hydrochloro 2016-0 Yes 25 mg, PO, Memoria thiazide 1-07 Daily, 0 l 16:08: Refill(s) Amlodipine 2016-0 Yes 10 mg = 1 Me [place] 10 MG Oral 1-07 tab, PO, l Tablet 16:08: Daily, 0 [place] [Norvasc] 00 Refill(s) Hydrochloro 2016-0 Yes 25 mg, PO, Memoria thiazide 1-07 Daily, 0 l 16:08: Refill(s) [place] 00 Amlodipine 2016-0 Yes 10 mg = 1 Me [place] 10 MG Oral -07 tab, PO, l Tablet 16:08: Daily, 0 [place] [Norvasc] 00 Refill(s) Hydrochloro 2016-0 Yes 25 mg, PO, Memoria thiazide 07 Daily, 0 l 16:08: Refill(s) Amlodipine 2015-0 Yes 10 mg = 1 Me [place] 10 MG Oral -07 tab, PO, l Tablet 16:08: Daily, 0 [place] [Norvasc] 00 Refill(s) Hydrochloro 2016-0 Yes 25 [...] tab, PO, l Tablet 16:08: Daily, 0 [place] [Norvasc] 00 Refill(s) Hydrochloro 2016-0 Yes 25 [...] tab, PO, l Tablet 16:08: Daily, 0 [place] [Norvasc] 00 Refill(s) Hydrochloro 2016-0 Yes 25 mg, PO, Memoria thiazide 11-07 Daily, 0 l 16:08: Refill(s) [place] 00 Amlodipine 2015-0 Yes 10 mg = 1 Me [place] 10 MG Oral 1-07 tab, PO, l Tablet 16:08: Daily, 0 [place] [Norvasc] 00 Refill(s) Hydrochloro 2016-0 Yes 25 [...] tab, PO, l Tablet 16:08: Daily, 0 [place] [Norvasc] 00 Refill(s) Hydrochloro 2016-0 Yes 25 mg, PO, Memoria thiazide 11-07 Daily, 0 l 16:08: Refill(s) [place] 00 Amlodipine 2016-0 Yes 10 mg = 1 Me [place] 10 MG Oral -07 tab, PO, l Tablet 16:08: Daily, 0 [place] [Norvasc] 00 Refill(s) Hydrochloro 2016-0 Yes 25 mg, PO, Memoria thiazide 11-07 Daily, 0 l 16:08: Refill(s) [place] 00 Amlodipine 2016-0 Yes 10 mg = [...] thiazide 11-07 Daily, 0 l 16:08: Refill(s) [place] 00 Amlodipine 2016-0 Yes 10 mg = 1 Me [place] 10 MG Oral -07 tab, PO, l Tablet 16:08: Daily, 0 [place] [Norvasc] 00 Refill(s) Hydrochloro 2016-0 Yes 25 mg, PO, Memoria thiazide 11-07 Daily, 0 l 16:08: Refill(s) [place] 00 Amlodipine 2016-0 Yes 10 mg = 1 Me [place] 10 MG Oral - tab, PO, l Tablet 16:08: Daily, 0 [place] [Norvasc] 00 Refill(s) Hydrochloro 2016-0 Yes 25 [...] thiazide 1-07 Daily, 0 l 16:08: Refill(s) [place] 00 Amlodipine 2016-0 Yes 10 mg = 1 Me [place] 10 MG Oral 1-07 tab, PO, l Tablet 16:08: Daily, 0 [place] [Norvasc] 00 Refill(s) Hydrochloro 2016-0 Yes 25 mg, PO, Memoria thiazide 1-07 Daily, 0 l 16:08: Refill(s) [place] 00 Amlodipine 2016-0 Yes 10 mg = 1 Me [place] 10 MG Oral - tab, PO, l Tablet 16:08: Daily, 0 [place] [Norvasc] 00 Refill(s) Hydrochloro 2016-0 Yes 25 mg, PO, Memoria thiazide 11-07 Daily, 0 l 16:08: Refill(s) Amlodipine 2016-0 Yes 10 mg = 1 [facility] [place] 10 MG Oral - tab, PO, l Tablet 16:08: Daily, 0 [place] [Norvasc] 00 Refill(s) Hydrochloro 2016-0 Yes 25 mg, PO, Memoria thiazide 11-07 Daily, 0 l 16:08: Refill(s) Amlodipine 2015-0 Yes 10 mg = 1 Me [place] 10 MG Oral - tab, PO, l Tablet 16:08: Daily, 0 [place] [Norvasc] 00 Refill(s) Hydrochloro 2016-0 Yes 25 mg, PO, Memoria thiazide 11-07 Daily, 0 l 16:08: Refill(s) Amlodipine 2015-0 Yes 10 mg = 1 Me [place] 10 MG Oral - tab, PO, l Tablet 16:08: Daily, 0 [place] [Norvasc] 00 Refill(s) Hydrochloro 2016-0 Yes 25 [...] tab, PO, l Tablet 16:08: Daily, 0 [place] [Norvasc] 00 Refill(s) Hydrochloro 2016-0 Yes 25 [...] thiazide 11-07 Daily, 0 l 16:08: Refill(s) [place] 00 Amlodipine 2016-0 Yes 10 mg = 1 Me [place] 10 MG Oral 1-07 tab, PO, l Tablet 16:08: Daily, 0 [place] [Norvasc] 00 Refill(s) Hydrochloro 2016-0 Yes 25 mg, PO, Memoria thiazide 11-07 Daily, 0 l 16:08: Refill(s) [place] 00 Amlodipine 2016-0 Yes 10 mg = 1 Me [place] 10 MG Oral 1-07 tab, PO, l Tablet 16:08: Daily, 0 [place] [Norvasc] 00 Refill(s) Hydrochloro 2016-0 Yes 25 mg, PO, Memoria thiazide 11-07 Daily, 0 l 16:08: Refill(s) [place] 00 Amlodipine 2016-0 Yes 10 mg = 1 Me [place] 10 MG Oral 1-07 tab, PO, l Tablet 16:08: Daily, 0 [place] [Norvasc] 00 Refill(s) Hydrochloro 2016-0 Yes 25 [...] tab, PO, l Tablet 16:08: Daily, 0 [place] [Norvasc] 00 Refill(s) Hydrochloro 2016-0 Yes 25 mg, PO, Memoria thiazide 11-07 Daily, 0 l 16:08: Refill(s) [place] 00 Amlodipine 2016-0 Yes 10 mg = 1 Me [place] 10 MG Oral -07 tab, PO, l Tablet 16:08: Daily, 0 [place] [Norvasc] 00 Refill(s) Hydrochloro 2016-0 Yes 25 mg, PO, Memoria thiazide 11-07 Daily, 0 l 16:08: Refill(s) [place] 00 Amlodipine 2016-0 Yes 10 mg = [...] tab, PO, l Tablet 16:08: Daily, 0 [place] [Norvasc] 00 Refill(s) Hydrochloro 2016-0 Yes 25 mg, PO, Memoria thiazide 11-07 Daily, 0 l 16:08: Refill(s) Amlodipine 2015-0 Yes 10 mg = 1 [place] 10 MG Oral - tab, PO, l Tablet 16:08: Daily, 0 [place] [Norvasc] 00 Refill(s) Hydrochloro 2016-0 Yes 25 [...] tab, PO, l Tablet 16:08: Daily, 0 [place] [Norvasc] 00 Refill(s) Hydrochloro 2016-0 Yes 25 [...] tab, PO, l Tablet 16:08: Daily, 0 [place] [Norvasc] 00 Refill(s) Hydrochloro 2016-0 Yes 25 mg, PO, Memoria thiazide 11-07 Daily, 0 l 16:08: Refill(s) Amlodipine 2016-0 Yes 10 mg = 1 Me [place] 10 MG Oral 1-07 tab, PO, l Tablet 16:08: Daily, 0 [place] [Norvasc] 00 Refill(s) Hydrochloro 2016-0 Yes 25 mg, PO, Memoria thiazide 11-07 Daily, 0 l 16:08: Refill(s) [place] 00 Amlodipine 2016-0 Yes 10 mg = 1 Me [place] 10 MG Oral 1-07 tab, PO, l Tablet 16:08: Daily, 0 [place] [Norvasc] 00 Refill(s) Hydrochloro 2016-0 Yes 25 mg, PO, Memoria thiazide 11-07 Daily, 0 l 16:08: Refill(s) [place] 00 Amlodipine 2016-0 Yes 10 mg = 1 Me [place] 10 MG Oral 1-07 tab, PO, l Tablet 16:08: Daily, 0 [place] [Norvasc] 00 Refill(s) Hydrochloro 2016-0 Yes 25 mg, PO, Memoria thiazide 11-07 Daily, 0 l 16:08: Refill(s) [place] 00 Amlodipine 2016-0 Yes 10 mg = 1 Me [place] 10 MG Oral 1-07 tab, PO, l Tablet 16:08: Daily, 0 [place] [Norvasc] 00 Refill(s) Hydrochloro 2016-0 Yes 25 mg, PO, Memoria thiazide -07 Daily, 0 l 16:08: Refill(s) Amlodipine 2016-0 Yes 10 mg = 1 Me [place] 10 MG Oral -07 tab, PO, l Tablet 16:08: Daily, 0 [place] [Norvasc] 00 Refill(s) Hydrochloro 2016-0 Yes 25 [...] tab, PO, l Tablet 16:08: Daily, 0 [place] [Norvasc] 00 Refill(s) Hydrochloro 2016-0 Yes 25 [...] thiazide 11-07 Daily, 0 l 16:08: Refill(s) [place] 00 Amlodipine 0 Yes 10 mg = 1 Me [place] 10 MG Oral - tab, PO, l Tablet 16:08: Daily, 0 [place] [Norvasc] 00 Refill(s) Hydrochloro 2016-0 Yes 25 mg, PO, Memoria thiazide 11-07 Daily, 0 l 16:08: Refill(s) [place] 00 Amlodipine 0 Yes 10 mg = 1 Me [place] 10 MG Oral - tab, PO, l Tablet 16:08: Daily, 0 [place] [Norvasc] 00 Refill(s) Hydrochloro 2016-0 Yes 25 mg, PO, Memoria thiazide 11-07 Daily, 0 l 16:08: Refill(s) [place] metoprolol Yes 100 mg = 1 M [...] BREATH allopurinol allopurinol No allopurino [facility] 300 mg 300 mg l 300 mg [...] ANXIETY amlodipine amlodipine No amlodipine [facility] 5 mg tablet 5 mg tablet 5 mg F amily TAKE 1 TAKE 1 tablet Practic TABLET BY TABLET BY TAKE 1 e MOUTH EVERY MOUTH EVERY TABLET BY DAY DAY MOUTH EVERY DAY atorvastati atorvastati No atorvastat [facility] n 20 mg n 20 mg in 20 mg Famil y tablet TAKE tablet TAKE tablet Practic 1 TABLET BY 1 TABLET BY TAKE 1 e MOUTH EVERY MOUTH EVERY TABLET BY DAY DAY MOUTH EVERY DAY BD Insulin BD Insulin No BD Insulin [facility] Syringe Syringe Syringe [facility] U-500 1/2 U-500 1/2 U-500 1/2 Practic [...] DIARRHEA cyclobenzap cyclobenzap No cyclobenza [facility] rine 10 mg rine 10 mg wiley [...] PAIN diclofenac diclofenac No diclofenac [facility] 1 % topical 1 % topical 1 % F amily gel APPLY gel APPLY topical Pr actic TO THE TO THE gel APPLY e AFFECTED AFFECTED TO THE AREA FOUR AREA FOUR AFFECTED TIMES DAILY TIMES DAILY AREA FOUR TIMES DAILY diclofenac diclofenac No diclofenac [facility] sodium 75 sodium 75 sodium 75 Family mg mg mg Practic tablet,artem tablet,artem tablet,del e yed release yed release ayed TAKE 1 TAKE 1 release TABLET BY TABLET BY TAKE 1 MOUTH TWICE MOUTH TWICE TABLET BY DAILY WITH DAILY WITH MOUTH MEALS MEALS TWICE DAILY WITH MEALS dicyclomine dicyclomine No dicyclomin [facility] 10 mg 10 mg e 10 mg Family capsule capsule capsule Practi c TAKE 1 TAKE 1 TAKE 1 e CAPSULE BY CAPSULE BY CAPSULE BY MOUTH EVERY MOUTH EVERY MOUTH 8 HOURS 8 HOURS EVERY 8 HOURS gabapentin gabapentin No gabapentin [facility] 600 mg 600 mg 600 mg Family [...] EVENING hydralazine hydralazine No hydralazin [facility] 100 mg 100 mg e 100 mg Family tablet TAKE tablet TAKE tablet Practic 1 TABLET BY 1 TABLET BY TAKE 1 e MOUTH THREE MOUTH THREE TABLET BY TIMES DAILY TIMES DAILY MOUTH THREE TIMES DAILY hydrochloro hydrochloro No hydrochlor [facility] thiazide thiazide othiazide Fa davida 12.5 mg 12.5 mg 12.5 mg Practi c capsule capsule capsule e TAKE 1 TAKE 1 TAKE 1 CAPSULE BY CAPSULE BY CAPSULE BY MOUTH DAILY MOUTH DAILY MOUTH DAILY hydrocodone hydrocodone No hydrocodon [facility] 7.5 7.5 e 7.5 Family mg-acetamin mg-acetamin [...] gauge x 31 gauge x mL 31 516" USE 16" USE gauge x TWICE DAILY TWICE DAILY 03/16" USE WITH MEALS WITH MEALS TWICE DAILY WITH MEALS [facility] bromide m bromide Fami ly 0.02 % 0.02 % 0.02 % Practic solution solution solution e for for for inhalation inhalation inhalation lisinopril lisinopril lisinopril [facility] 40 mg 40 mg 40 mg Family tablet TAKE tablet TAKE tablet Practic 1/2 TABLET 1/2 TABLET TAKE 1/2 e BY MOUTH BY MOUTH TABLET BY TWICE DAILY TWICE DAILY MOUTH TWICE DAILY mesalamine mesalamine No mesalamine [facility] ER 0.375 ER 0.375 ER 0.375 Fam ramses gram gram gram Practic capsule,ext capsule,ext capsule,ex e ended ended tended release 24 release 24 release 24 hr TAKE 4 hr TAKE 4 hr TAKE 4 CAPSULES BY CAPSULES BY CAPSULES MOUTH DAILY MOUTH DAILY BY MOUTH DAILY metformin metformin metformin [facility] 1,000 mg 1,000 mg 1,000 mg Fam ramses tablet TAKE tablet TAKE tablet Practic 1 TABLET BY 1 TABLET BY TAKE 1 e MOUTH TWICE MOUTH TWICE TABLET BY DAILY WITH DAILY WITH MOUTH MEALS MEALS TWICE DAILY WITH MEALS metoprolol metoprolol No metoprolol [facility] tartrate tartrate tartrate Fam ramses 100 mg [...] BY MOUTH DAILY nitroglycer nitroglycer No nitroglyce [facility] in 0.4 mg in 0.4 mg rin [...] y of Vaccine Quad IM, 00:00:00 [place] [facility] Preserv and ABX Branch Free 6 MO-64 YRS Influenza Virus 2022-09-21 Completed [facility]it y of Vaccine Quad IM, 00:00:00 [facility] dical Preserv and ABX Branch Free 6 MO-64 YRS Influenza Virus 2022-09-21 Completed Universit y of Vaccine Quad IM, 00:00:00 [facility] dical Preserv and ABX Branch Free 6 MO-64 YRS Influenza Virus 2022-09-21 Completed [facility]it y of Vaccine Quad IM, 00:00:00 [place] [facility] Preserv and ABX Branch Free 6 MO-64 YRS Influenza Virus 2022-09-21 Completed [facility]it y of Vaccine Quad IM, 00:00:00 [place] [facility] Preserv and ABX Branch Free 6 MO-64 YRS Influenza Virus 2022-09-21 Completed [facility]it y of Vaccine Quad IM, 00:00:00 [place] [facility] Preserv and ABX Branch Free 6 MO-64 YRS Influenza Virus 2022-09-21 Completed [facility]it y of Vaccine Quad IM, 00:00:00 [place] [facility] Preserv and ABX Branch Free [...] y of Vaccine Quad IM, 00:00:00 [place] [facility] Preserv and ABX Branch Free [...] y of Vaccine Quad IM, 00:00:00 [place] [facility] Preserv and ABX Branch Free 6 MO-64 YRS Influenza Virus 2022-09-21 Completed [facility]it y of Vaccine Quad IM, 00:00:00 [place] [facility] Preserv and ABX Branch Free 6 MO-64 YRS Influenza Virus 2022-09-21 Completed [facility]it y of Vaccine Quad IM, 00:00:00 [place] [facility] Preserv and ABX Branch Free 6 MO-64 YRS Influenza Virus 2022-09-21 Completed [facility]it y of Vaccine Quad IM, 00:00:00 [place] [facility] Preserv and ABX Branch Free 6 MO-64 YRS Influenza Virus 2022-09-21 Completed [facility]it y of Vaccine Quad IM, 00:00:00 [place] [facility] Preserv and ABX Branch Free [...] rsity of MODERNA 12+ YRS 00:00:00 [facility] ical VACCINE Branch SARS-COV-2 COVID-19 2020-12-03 Completed Unive rsity of MODERNA 12+ YRS 00:00:00 [facility] ical VACCINE Branch SARS-COV-2 COVID-19 2020-12-03 Completed Unive rsity of MODERNA 12+ YRS 00:00:00 [facility] ical VACCINE Branch SARS-COV-2 COVID-19 2020-12-03 Completed Unive rsity of MODERNA 12+ YRS 00:00:00 [facility] ical VACCINE Branch Influenza Virus 2020-11-13 Completed Universit y of Vaccine Quad .5 mL 00:00:00 [place] [facility] 6+ MO Branch Influenza Virus 2020-11-13 Completed [facility]it y of Vaccine Quad .5 mL 00:00:00 [place] [facility] 6+ MO Branch Influenza Virus [...] of Vaccine Quad .5 mL 00:00:00 [place] [facility] 6+ MO Branch Influenza Virus [...] of Vaccine Quad .5 mL 00:00:00 [place] [facility] IM 6+ MO Branch Influenza Virus 2020-11-13 Completed [facility]it y of Vaccine Quad .5 mL 00:00:00 [place] [facility] 6+ MO Branch Influenza Virus 2020-11-13 Completed [facility]it y of Vaccine Quad .5 mL 00:00:00 [place] [facility] IM 6+ MO Branch Influenza Virus 2020-11-13 Completed [facility]it y of Vaccine Quad .5 mL 00:00:00 [place] [facility] 6+ MO Branch Influenza Virus 2020-11-13 Completed [facility]it y of Vaccine Quad .5 mL 00:00:00 [place] [facility] 6+ MO Branch Influenza Virus 2020-11-13 Completed Universit y of Vaccine Quad .5 mL 00:00:00 [facility] 6+ MO Branch Influenza Virus 2020-11-13 Completed Universit y of Vaccine Quad .5 mL 00:00:00 [facility] IM 6+ MO Branch Pneumococcal 2016-09-11 Completed University o f Polysaccharide, 00:00:00 [place] [facility] PPSV23 (PNEUMOVAX) Branch Influenza Virus 2016-09-11 Completed Universit y of Vaccine (3+ yrs) 00:00:00 [facility] dical Branch Pneumococcal 2016-09-11 Completed University o f Polysaccharide, 00:00:00 [place] [facility] PPSV23 (PNEUMOVAX) Branch Influenza Virus 2016-09-11 Completed Universit y of Vaccine (3+ yrs) 00:00:00 [facility] dical Branch Pneumococcal 2016-09-11 Completed University o f Polysaccharide, 00:00:00 [place] [facility] PPSV23 (PNEUMOVAX) Branch Influenza Virus 2016-09-11 Completed Universit y of Vaccine (3+ yrs) 00:00:00 [facility] dical Branch Pneumococcal 2016-09-11 Completed University o f Polysaccharide, 00:00:00 [place] [facility] PPSV23 (PNEUMOVAX) Branch Influenza Virus 2016-09-11 Completed Universit y of Vaccine (3+ yrs) 00:00:00 [facility] Branch Pneumococcal 2016-09-11 Completed University o f Polysaccharide, 00:00:00 [place] [facility] PPSV23 (PNEUMOVAX) Branch Influenza Virus 2016-09-11 Completed Universit y of Vaccine (3+ yrs) 00:00:00 [facility] Branch Pneumococcal 2016-09-11 Completed University o f Polysaccharide, 00:00:00 [place] [facility] PPSV23 (PNEUMOVAX) Branch Influenza Virus 2016-09-11 Completed Universit y of Vaccine (3+ yrs) 00:00:00 [facility] Branch Pneumococcal 2016-09-11 Completed University o f Polysaccharide, 00:00:00 [place] [facility] PPSV23 (PNEUMOVAX) Branch Influenza Virus 2016-09-11 Completed Universit y of Vaccine (3+ yrs) 00:00:00 [facility] Branch Pneumococcal 2016-09-11 Completed University o f Polysaccharide, 00:00:00 [place] [facility] PPSV23 (PNEUMOVAX) Branch Influenza Virus 2016-09-11 Completed Universit y of Vaccine (3+ yrs) 00:00:00 [facility] Branch Pneumococcal 2016-09-11 Completed University o f Polysaccharide, 00:00:00 [place] [facility] PPSV23 (PNEUMOVAX) Branch Influenza Virus 2016-09-11 Completed Universit y of Vaccine (3+ yrs) 00:00:00 [facility] Branch Pneumococcal 2016-09-11 Completed University o f Polysaccharide, 00:00:00 [place] [facility] PPSV23 (PNEUMOVAX) Branch Influenza Virus 2016-09-11 Completed Universit y of Vaccine (3+ yrs) 00:00:00 [facility] Branch Pneumococcal 2016-09-11 Completed University o f Polysaccharide, 00:00:00 [place] [facility] PPSV23 (PNEUMOVAX) Branch Influenza Virus 2016-09-11 Completed Universit y of Vaccine (3+ yrs) 00:00:00 [facility] Branch Pneumococcal 2016-09-11 Completed University o f Polysaccharide, 00:00:00 [place] [facility] PPSV23 (PNEUMOVAX) Branch Influenza Virus 2016-09-11 Completed Universit y of Vaccine (3+ yrs) 00:00:00 [facility] dical Branch Pneumococcal 2016-09-11 Completed University o f Polysaccharide, 00:00:00 [place] [facility] PPSV23 (PNEUMOVAX) Branch Influenza Virus 2016-09-11 Completed Universit y of Vaccine (3+ yrs) 00:00:00 [facility] dical Branch Pneumococcal 2016-09-11 Completed University o f Polysaccharide, 00:00:00 [place] [facility] PPSV23 (PNEUMOVAX) Branch Influenza Virus 2016-09-11 Completed Universit y of Vaccine (3+ yrs) 00:00:00 [facility] Branch Pneumococcal 2016-09-11 Completed University o f Polysaccharide, 00:00:00 [place] [facility] PPSV23 (PNEUMOVAX) Branch Influenza Virus 2016-09-11 Completed Universit y of Vaccine (3+ yrs) 00:00:00 [facility] Branch Pneumococcal 2016-09-11 Completed University o f Polysaccharide, 00:00:00 [place] [facility] PPSV23 (PNEUMOVAX) Branch Influenza Virus 2016-09-11 Completed Universit y of Vaccine (3+ yrs) 00:00:00 [facility] Branch Pneumococcal 2016-09-11 Completed University o f Polysaccharide, 00:00:00 [place] [facility] PPSV23 (PNEUMOVAX) Branch Influenza Virus 2016-09-11 Completed Universit y of Vaccine (3+ yrs) 00:00:00 [facility] Branch Pneumococcal 2016-09-11 Completed University o f Polysaccharide, 00:00:00 [place] [facility] PPSV23 (PNEUMOVAX) Branch Influenza Virus 2016-09-11 Completed Universit y of Vaccine (3+ yrs) 00:00:00 [facility] Branch Pneumococcal 2016-09-11 Completed University o f Polysaccharide, 00:00:00 [place] [facility] PPSV23 (PNEUMOVAX) Branch Influenza Virus 2016-09-11 Completed Universit y of Vaccine (3+ yrs) 00:00:00 [facility] Branch Pneumococcal 2016-09-11 Completed University o f Polysaccharide, 00:00:00 [place] [facility] PPSV23 (PNEUMOVAX) Branch Influenza Virus 2016-09-11 Completed Universit y of Vaccine (3+ yrs) 00:00:00 [facility] dical Branch Pneumococcal 2015-04-11 Completed University o [...] 2015-04-11 Completed University o f Polysaccharide, 00:00:00 [facility] ical PPSV23 (PNEUMOVAX) Branch Pneumococcal 2015-04-11 Completed University o f Polysaccharide, 00:00:00 [facility] ical PPSV23 (PNEUMOVAX) Branch Pneumococcal 2015-04-11 Completed University o f Polysaccharide, 00:00:00 [facility] ical PPSV23 (PNEUMOVAX) Branch Pneumococcal 2015-04-11 Completed University o f Polysaccharide, 00:00:00 [facility] ical PPSV23 (PNEUMOVAX) [place] Influenza Virus 2013-09-29 Completed Universit y of Vaccine (3+ yrs) 00:00:00 [facility] Influenza Virus 2013-09-29 Completed Universit y of Vaccine (3+ yrs) 00:00:00 [facility] Influenza Virus 2013-09-29 Completed Universit y of Vaccine (3+ yrs) 00:00:00 [facility] Influenza Virus 2013-09-29 Completed Universit y of Vaccine (3+ yrs) 00:00:00 [facility] Influenza Virus 2013-09-29 Completed Universit y of Vaccine (3+ yrs) 00:00:00 [facility] Flu Trivalent 2013-09-29 Completed University of 00:00:00 [facility] Influenza Virus 2013-09-29 Completed Universit y of Vaccine (3+ yrs) 00:00:00 [facility] Flu Trivalent 2013-09-29 Completed University of 00:00:00 [facility] Influenza Virus 2013-09-29 Completed Universit y of Vaccine (3+ yrs) 00:00:00 [facility] Flu Trivalent 2013-09-29 Completed University of 00:00:00 [facility] Influenza Virus 2013-09-29 Completed Universit y of Vaccine (3+ yrs) 00:00:00 [facility] Flu Trivalent 2013-09-29 Completed University [facility] 00:00:00 [facility] [facility] Influenza Virus 2013-09-29 Completed Universit y of Vaccine (3+ yrs) 00:00:00 [facility] Flu Trivalent 2013-09-29 Completed University of 00:00:00 [facility] Influenza Virus 2013-09-29 Completed Universit y of Vaccine (3+ yrs) 00:00:00 [facility] Flu Trivalent 2013-09-29 Completed University of 00:00:00 [facility] Influenza Virus 2013-09-29 Completed Universit y of Vaccine (3+ yrs) 00:00:00 [facility] Flu Trivalent 2013-09-29 Completed University of 00:00:00 [facility] Influenza Virus 2013-09-29 Completed Universit y of Vaccine (3+ yrs) 00:00:00 [facility] Flu Trivalent 2013-09-29 Completed University of 00:00:00 [facility] Influenza Virus 2013-09-29 Completed Universit y of Vaccine (3+ yrs) 00:00:00 [facility] Flu Trivalent 2013-09-29 Completed University of 00:00:00 [facility] Influenza Virus 2013-09-29 Completed Universit y of Vaccine (3+ yrs) 00:00:00 [facility] Flu Trivalent 2013-09-29 Completed University of 00:00:00 [facility] Influenza Virus 2013-09-29 Completed Universit y of Vaccine (3+ yrs) 00:00:00 [facility] Flu Trivalent 2013-09-29 Completed University of 00:00:00 [facility] Influenza Virus 2013-09-29 Completed Universit y of Vaccine (3+ yrs) 00:00:00 [facility] Flu Trivalent 2013-09-29 Completed University of 00:00:00 [facility] Influenza Virus 2013-09-29 Completed Universit y of Vaccine (3+ yrs) 00:00:00 [facility] Flu Trivalent 2013-09-29 Completed University of 00:00:00 [facility] Influenza Virus 2013-09-29 Completed Universit y of Vaccine (3+ yrs) 00:00:00 [facility] Flu Trivalent 2013-09-29 Completed University of 00:00:00 [facility] Influenza Virus 2013-09-29 Completed Universit y of Vaccine (3+ yrs) 00:00:00 [facility] Flu Trivalent 2013-09-29 Completed University of 00:00:00 [facility] Influenza Virus 2013-09-29 Completed Universit y of Vaccine (3+ yrs) 00:00:00 [facility] Flu Trivalent 2013-09-29 Completed University of 00:00:00 [facility] Influenza Virus 2012-11-25 Completed Universit y of Vaccine (3+ yrs) 00:00:00 [facility] Influenza Virus 2012-11-25 Completed Universit y of Vaccine (3+ yrs) 00:00:00 [facility] Influenza Virus 2012-11-25 Completed Universit y of Vaccine (3+ yrs) 00:00:00 [facility] Influenza Virus 2012-11-25 Completed Universit y of Vaccine (3+ yrs) 00:00:00 [facility] Influenza Virus 2012-11-25 Completed Universit y of Vaccine (3+ yrs) 00:00:00 [facility] Flu Trivalent 2012-11-25 Completed University of 00:00:00 [facility] Influenza Virus 2012-11-25 Completed Universit y of Vaccine (3+ yrs) 00:00:00 [facility] Flu Trivalent 2012-11-25 Completed University of 00:00:00 [facility] Influenza Virus 2012-11-25 Completed Universit y of Vaccine (3+ yrs) 00:00:00 [facility] Flu Trivalent 2012-11-25 Completed University of 00:00:00 [facility] Influenza Virus 2012-11-25 Completed Universit y of Vaccine (3+ yrs) 00:00:00 [facility] Flu Trivalent 2012-11-25 Completed University of 00:00:00 [facility] Influenza Virus 2012-11-25 Completed Universit y of Vaccine (3+ yrs) 00:00:00 [facility] Flu Trivalent 2012-11-25 Completed University of 00:00:00 [facility] Influenza Virus 2012-11-25 Completed Universit y of Vaccine (3+ yrs) 00:00:00 [facility] Flu Trivalent 2012-11-25 Completed University of 00:00:00 [facility] Influenza Virus 2012-11-25 Completed Universit y of Vaccine (3+ yrs) 00:00:00 [facility] Flu Trivalent 2012-11-25 Completed University of 00:00:00 [facility] Influenza Virus 2012-11-25 Completed Universit y of Vaccine (3+ yrs) 00:00:00 [facility] Flu Trivalent 2012-11-25 Completed University of 00:00:00 [facility] Influenza Virus 2012-11-25 Completed Universit y of Vaccine (3+ yrs) 00:00:00 [facility] Flu Trivalent 2012-11-25 Completed University of 00:00:00 [facility] Influenza Virus 2012-11-25 Completed Universit y of Vaccine (3+ yrs) 00:00:00 [facility] Flu Trivalent 2012-11-25 Completed University of 00:00:00 [facility] Influenza Virus 2012-11-25 Completed Universit y of Vaccine (3+ yrs) 00:00:00 [facility] Flu Trivalent 2012-11-25 Completed University of 00:00:00 [facility] Influenza Virus 2012-11-25 Completed Universit y of Vaccine (3+ yrs) 00:00:00 [facility] Flu Trivalent 2012-11-25 Completed University of 00:00:00 [facility] Influenza Virus 2012-11-25 Completed Universit y of Vaccine (3+ yrs) 00:00:00 [facility] Flu Trivalent 2012-11-25 Completed University of 00:00:00 [facility] Influenza Virus 2012-11-25 Completed Universit y of Vaccine (3+ yrs) 00:00:00 [facility] Flu Trivalent 2012-11-25 Completed University of 00:00:00 [facility] Influenza Virus 2012-11-25 Completed Universit y of Vaccine (3+ yrs) 00:00:00 [facility] Flu Trivalent 2012-11-25 Completed University of 00:00:00 [facility] Influenza Virus 2012-11-25 Completed Universit y of Vaccine (3+ yrs) 00:00:00 [facility] Flu Trivalent 2012-11-25 Completed University of 00:00:00 [facility] Vital Signs Vital Name Observation Time Observation Value Comments Source Systolic blood 2023-04-08 14:02:00 119 mm[Hg] Univer sity of pressure [facility] Diastolic blood 2023-04-08 14:02:00 75 mm[Hg] Unive rsity of pressure [facility] Heart rate 2023-04-08 14:02:00 73 /min [facility] Respiratory rate 2023-04-08 14:02:00 18 /min Univ ersity of [facility] Body height 2023-04-08 14:02:00 160 cm [facility] [place] [facility] Body weight 2023-04-08 14:02:00 142.792 kg [facility] [place] [facility] BMI 2023-04-08 14:02:00 55.76 kg/m2 [facility] [place] [facility] Oxygen saturation in 2023-04-08 14:02:00 95 /min University of Arterial blood by [place] [facility] Pulse oxim[facility] Systolic blood 2022-10-21 15:09:00 141 mm[Hg] Univer sity of pressure [facility] [place] [facility] Diastolic blood 2022-10-21 15:09:00 81 mm[Hg] Unive rsity of pressure [facility] [place] [facility] Heart rate 2022-10-21 15:08:00 84 /min [facility] [place] [facility] Body height 2022-10-21 15:08:00 160 cm [facility] [place] [facility] Body weight 2022-10-21 15:08:00 151.275 kg [facility] [place] [facility] BMI 2022-10-21 15:08:00 59.08 kg/m2 [facility] [place] [facility] Oxygen saturation in 2022-10-21 15:08:00 95 /min University of Arterial blood by [facility] Pulse oximetry Branch Systolic blood 2022-09-21 15:34:00 151 mm[Hg] Univer sity of pressure [place] [facility] Diastolic blood 2022-09-21 15:34:00 74 mm[Hg] Unive rsity of pressure [facility] [place] [facility] Heart rate 2022-09-21 15:33:00 86 /min [facility] [place] [facility] Body height 2022-09-21 15:33:00 160 cm [facility] [place] [facility] Body weight 2022-09-21 15:33:00 149.778 kg [facility] [place] [facility] BMI 2022-09-21 15:33:00 58.49 kg/m2 [facility] [place] [facility] Oxygen saturation in 2022-09-21 15:33:00 92 /min University of Arterial blood by [facility] mari Pulse oximetry Branch Systolic blood 2022-08-25 14:59:00 121 mm[Hg] Univer sity of pressure [facility] [place] [facility] Diastolic blood 2022-08-25 14:59:00 75 mm[Hg] Unive rsity of pressure [facility] [place] [facility] Heart rate 2022-08-25 14:59:00 108 /min [facility] [place] [facility] Body temperature 2022-08-25 14:59:00 36.67 Pat Univ ersity of [facility] Body height 2022-08-25 14:59:00 160 cm [facility] [place] [facility] Body weight 2022-08-25 14:59:00 146.512 kg [facility] [place] [facility] [place] BMI 2022-08-25 14:59:00 57.22 kg/m2 Universi ty of [facility] Oxygen saturation in 2022-08-25 14:59:00 96 /min University of Arterial blood by [facility] Pulse oximetry Branch Systolic blood 2022-03-18 14:25:00 120 mm[Hg] Univer sity of pressure [facility] Diastolic blood 2022-03-18 14:25:00 70 mm[Hg] Unive rsity of [facility] Heart rate 2022-03-18 14:25:00 78 /min [facility] [place] [facility] [place] Body height 2022-03-18 14:25:00 160 cm [facility] [place] [facility] Body weight 2022-03-18 14:25:00 150.367 kg [facility] [place] [facility] BMI 2022-03-18 14:25:00 58.72 kg/m2 [facility] [place] [facility] [place] Oxygen saturation in 2022-03-18 14:25:00 95 /min University of Arterial blood by [place] [facility] HEIGHT 2022-01-09 09:38:00 160 cm WEIGHT 2022-01-09 09:38:00 151.501 kg HEIGHT 2022-01-08 12:04:00 160 cm WEIGHT 2022-01-08 12:04:00 149.687 kg HEIGHT 2022-01-09 09:38:00 160 cm WEIGHT 2022-01-09 09:38:00 151.501 kg HEIGHT 2022-01-08 12:04:00 160 cm WEIGHT 2022-01-08 12:04:00 149.687 kg BP Diastolic 2021-08-21 00:00:00 89 mm[Hg] [facility] Height 2021-08-21 00:00:00 63 [in_i] [facility] BMI (Body Mass 2021-08-21 00:00:00 58.1 kg/m2 [facility] BP Systolic 2021-08-21 00:00:00 131 mm[Hg] [facility] Body Weight 2021-08-21 00:00:00 328 [lb_av] [facility] Systolic blood 2023-03-31 14:50:03 108 mm[Hg] [...] /min University of Arterial blood by Bere valentin Pulse oximetry [facility] Systolic blood 2023-03-11 16:45:59 129 mm[Hg] [...] 2023-03-11 16:45:59 57.56 kg/m2 [facility] [place] on [facility] Oxygen saturation in 2023-03-11 16:45:59 93 /min University Arterial blood by Bere valentin Pulse oximetry [facility] Body height 2023-02-06 13:19:00 155 cm [facility] MD Carreon on [facility] Systolic blood 2022-01-09 13:53:00 157 mm[Hg] [facility] Diastolic blood 2022-01-09 13:53:00 89 mm[Hg] [facility] Heart rate 2022-01-09 13:53:00 80 /min [facility] Body temperature 2022-01-09 13:53:00 36.33 Pat [facility] Respiratory rate 2022-01-09 13:53:00 19 /min [facility] Oxygen saturation in 2022-01-09 13:53:00 93 /min [facility] Arterial blood by [facility] nter Pulse oximetry Body height 2022-01-09 09:38:00 160 cm [facility] Body weight 2022-01-09 09:38:00 151.501 kg [facility] BMI 2022-01-09 09:38:00 59.17 kg/m2 [facility] Systolic (mm Hg) 2018-04-04 19:53:00 [place] Diastolic (mm Hg) 2018-04-04 19:53:00 Mem orial [place] Respitory Rate 2018-04-04 19:53:00 [facility] [place] Systolic (mm Hg) 2018-04-04 19:41:00 [place] [facility] [place] Diastolic (mm Hg) 2018-04-04 19:41:00 Mem [facility] [place] Respitory Rate 2018-04-04 19:41:00 [facility] [place] Systolic (mm Hg) 2018-04-04 18:06:00 [place] [facility] [place] Diastolic (mm Hg) 2018-04-04 18:06:00 Mem [facility] [place] Respitory Rate 2018-04-04 18:06:00 [facility] [place] Weight 2018-04-04 18:04:00 [facility] [place] BMI Calculated 2018-04-04 18:04:00 [facility] [place] Height 2018-03-30 16:54:00 160.02 cm [facility] [place] Respitory Rate 2018-03-21 22:06:00 [facility] [place] Systolic (mm Hg) 2018-03-21 22:06:00 [place] [facility] [place] Diastolic (mm Hg) 2018-03-21 22:06:00 Mem [facility] [place] Respitory Rate 2018-03-21 21:53:00 [facility] [place] Systolic (mm Hg) 2018-03-21 21:53:00 [place] [facility] [place] Diastolic (mm Hg) 2018-03-21 21:53:00 [facility] [place] Systolic (mm Hg) 2018-03-21 19:08:00 [place] [facility] [place] Diastolic (mm Hg) 2018-03-21 19:08:00 Mem [facility] [place] Respitory Rate 2018-03-21 19:08:00 [facility] [place] Height 2018 18:32:00 160.02 cm [facility] [place] Weight 2018 18:32:00 [facility] [place] BMI Calculated 2018 18:32:00 [facility] [place] Weight 2015-11-07 16:05:00 [facility] [place] BMI Calculated 2015-11-07 16:05:00 [facility] [place] Height 2015-11-07 16:05:00 160.02 cm [facility] [place] Procedures Procedure Date / Time Performing Clinician Source Performed INSURANCE CORRESPONDENCE 2023-03-12 Doctor Unassigned, Univ ersity of 05:01:00 [place] [facility] COMPLETE BLOOD COUNT W/ 2023-03-11 Lorena Hdez [facility] versity of DIFFERENTIAL 16:15:10 [place] Rob [facility] COMPREHENSIVE METABOLIC PANEL 2023-03-11 Lorena Hdez [facility] of 16:15:10 [place] MD Liane olivier [facility] MAGNESIUM LEVEL 2023-03-11 Lorena Hdez [facility] 16:15:10 [place] MD Liane olivier [facility] Results CBC 2023-03-11 Lorena Hdez [facility] 16:15:10 [place] [facility] MANUAL DIFFERENTIAL 2023-03-11 Lorena Hdez [facility] ity of 16:15:10 [place] MD Liane olivier [facility] GLUCOSE LEVEL 2023-03-11 Lorena Hdez [facility] of 16:15:10 [place] [facility] BLOOD UREA NITROGEN 2023-03-11 Lorena Hdez [facility] ity of 16:15:10 [place] [facility] ELECTROLYTE PANEL 2023-03-11 Lorena Hdez Universit y of 16:15:10 [place] [facility] SERUM CREATININE 2023-03-11 Lorena Hdez [facility] of 16:15:10 [place] [facility] .GLOMERULAR FILTRATION RATE 2023-03-11 Lorena Hdez [facility] of 16:15:10 [place] [facility] CALCIUM LEVEL TOTAL 2023-03-11 Lorena Hdez [facility] ity of 16:15:10 [place] [facility] ALBUMIN LEVEL 2023-03-11 Lorena Hdez [facility] of 16:15:10 [place] [facility] ALKALINE PHOSPHATASE 2023-03-11 [facility] 16:15:10 [place] [facility] ALANINE AMINOTRANSFERASE 2023-03-11 Lorena Hdez iversity of 16:15:10 [place] [facility] ASPARTATE AMINOTRANSFERASE 2023-03-11 Lorena Hdez [facility] of 16:15:10 [place] [facility] TOTAL PROTEIN 2023-03-11 Lorena Hdez [facility] of 16:15:10 [place] [facility] FRACTIONATED BILIRUBIN 2023-03-11 Lorena Hdez [facility] ersity of 16:15:10 [place] [facility] COMPLETE BLOOD COUNT W/ 2023-03-03 Lorena Hdez Uni versity of DIFFERENTIAL 18:03:40 [place] [facility] COMPREHENSIVE METABOLIC PANEL 2023-03-03 Lorena Hdez [facility] 18:03:40 [place] [facility] MAGNESIUM LEVEL 2023-03-03 Lorena Hdez [facility] 18:03:40 [place] [facility] Results CBC 2023-03-03 Lorena Hdez [facility] 18:03:40 [place] [facility] MANUAL DIFFERENTIAL 2023-03-03 [facility] 18:03:40 [place] [facility] GLUCOSE LEVEL 2023-03-03 [facility] 18:03:40 [place] [facility] BLOOD UREA NITROGEN 2023-03-03 Lorena Hdez [facility] ity of 18:03:40 [place] [facility] ELECTROLYTE PANEL 2023-03-03 Lorena Hdezgh Universit y of 18:03:40 [place] [facility] SERUM CREATININE 2023-03-03 [facility] 18:03:40 [place] [facility] .GLOMERULAR FILTRATION RATE 2023-03-03 [facility] of 18:03:40 [place] [facility] CALCIUM LEVEL TOTAL 2023-03-03 Lorena Hdez [facility] ity of 18:03:40 [place] [facility] ALBUMIN LEVEL 2023-03-03 [facility] of 18:03:40 [place] [facility] ALKALINE PHOSPHATASE 2023-03-03 [facility] of 18:03:40 [place] [facility] ALANINE AMINOTRANSFERASE 2023-03-03 [facility] i[facility] of 18:03:40 [place] [facility] ASPARTATE AMINOTRANSFERASE 2023-03-03 [facility] of 18:03:40 [place] [facility] TOTAL PROTEIN 2023-03-03 [facility] of 18:03:40 [place] [facility] FRACTIONATED BILIRUBIN 2023-03-03 [facility] ersity of 18:03:40 [place] [facility] POC GLUCOSE SCREEN 2023-02-16 Phyllis Rangel [facility] y of 17:02:00 Ashleigh [place] [facility] ANTI-XA LEVEL 2023-02-16 Felipe, KofiMaria [facility] of 16:13:00 Silvia [place] [facility] POC GLUCOSE SCREEN 2023-02-16 Phyllis Rangel [facility] y of 12:20:00 Ashleigh [place] [facility] MAGNESIUM LEVEL 2023-02-16 Mark [facility] of 11:15:00 [facility] PHOSPHORUS LEVEL 2023-02-16 Mark [facility] of 11:15:00 [facility]3]elizabeth [place] [facility] COMPLETE BLOOD COUNT W/ 2023-02-16 Noel Floresi ty of DIFFERENTIAL 11:15:00 [facility]3]elizabeth [place] [facility] COMPREHENSIVE METABOLIC PANEL 2023-02-16 Thao Romero V. Un iversity of 11:15:00 [place] [facility] GLUCOSE LEVEL 2023-02-16 Thao Romero V. University of 11:15:00 [place] [facility] BLOOD UREA NITROGEN 2023-02-16 Thao Romero V. University o f 11:15:00 [place] [facility] ELECTROLYTE PANEL 2023-02-16 Thao Romero V. [facility] of 11:15:00 [place] [facility] SERUM CREATININE 2023-02-16 Thao Romero V. [facility] of 11:15:00 [place] [facility] .GLOMERULAR FILTRATION RATE 2023-02-16 Thao Romero V. Univ ersity of 11:15:00 [place] [facility] CALCIUM LEVEL TOTAL 2023-02-16 Thao Romero V. University o f 11:15:00 [place] [facility] ALBUMIN LEVEL 2023-02-16 Thao Romero V. University of 11:15:00 [place] [facility] ALKALINE PHOSPHATASE 2023-02-16 Thao Romero V. University of 11:15:00 [place] [facility] ALANINE AMINOTRANSFERASE 2023-02-16 Thao Romero V. Univers ity of 11:15:00 [place] [facility] ASPARTATE AMINOTRANSFERASE 2023-02-16 Thao Romero V. Unive rsity of 11:15:00 [place] [facility] TOTAL PROTEIN 2023-02-16 Thao Romero V. University of 11:15:00 [place] [facility] FRACTIONATED BILIRUBIN 2023-02-16 Thao Romero V. Universit y of 11:15:00 [place] MD [facility] Results CBC 2023-02-16 Mark [facility] of 11:15:00 [facility] MANUAL DIFFERENTIAL 2023-02-16 [facility] o f 11:15:00 [facility] POC GLUCOSE SCREEN 2023-02-16 [facility] o f 02:26:00 [facility] POC GLUCOSE SCREEN 2023-02-15 [facility] o f 22:30:00 [facility] Center POC GLUCOSE SCREEN 2023-02-15 [facility] o f 17:15:00 [facility] POC GLUCOSE SCREEN 2023-02-15 [facility] o f 12:03:00 [facility] MAGNESIUM LEVEL 2023-02-15 [facility] 11:24:00 [facility] PHOSPHORUS LEVEL 2023-02-15 [facility] 11:24:00 [facility] COMPLETE BLOOD COUNT W/ 2023-02-15 [facility] DIFFERENTIAL 11:24:00 [facility] COMPREHENSIVE METABOLIC PANEL 2023-02-15 Thao Romero V. Un iversity of 11:24:00 [place] [facility] GLUCOSE LEVEL 2023-02-15 Thao Romero V. [facility] 11:24:00 [place] [facility] BLOOD UREA NITROGEN 2023-02-15 Thao Romero V. [facility] o f 11:24:00 [place] [facility] ELECTROLYTE PANEL 2023-02-15 Thao Romero V. [facility] 11:24:00 [place] [facility] SERUM CREATININE 2023-02-15 Thao Romero V. [facility] of 11:24:00 [place] [facility] .GLOMERULAR FILTRATION RATE 2023-02-15 Thao Romero V. Univ ersity of 11:24:00 [place] [facility] CALCIUM LEVEL TOTAL 2023-02-15 Thao Romero V. [facility] o f 11:24:00 [place] MD [facility] ALBUMIN LEVEL 2023-02-15 Thao Romero V. [facility] of 11:24:00 [place] MD Rob [facility] ALKALINE PHOSPHATASE 2023-02-15 Thao Romero V. [facility] of 11:24:00 [place] MD Liane olivier [facility] ALANINE AMINOTRANSFERASE 2023-02-15 Thao Romero V. Univers ity of 11:24:00 [place] [facility] ASPARTATE AMINOTRANSFERASE 2023-02-15 Thao Romero V. Unive rsity of 11:24:00 [place] [facility] TOTAL PROTEIN 2023-02-15 Thao Romero V. [facility] 11:24:00 [place] [facility] FRACTIONATED BILIRUBIN 2023-02-15 Thao Romero V. Universit y of 11:24:00 [place] [facility] Results CBC 2023-02-15 [facility] 11:24:00 [facility] MANUAL DIFFERENTIAL 2023-02-15 [facility] f 11:24:00 [facility] POC GLUCOSE SCREEN 2023-02-15 [facility] o f 02:05:00 [facility] POC GLUCOSE SCREEN 2023-02-14 [facility] o f 22:46:00 [facility] POC GLUCOSE SCREEN 2023-02-14 [facility] o f 16:34:00 [facility] POC GLUCOSE SCREEN 2023-02-14 [facility] o f 13:58:00 [facility] MAGNESIUM LEVEL 2023-02-14 Mark [facility] of 11:24:00 [facility] PHOSPHORUS LEVEL 2023-02-14 Mark [facility] of 11:24:00 [facility] COMPLETE BLOOD COUNT W/ 2023-02-14 [facility] ty [facility] DIFFERENTIAL 11:24:00 [facility] COMPREHENSIVE METABOLIC PANEL 2023-02-14 Thao Romero V. Un iversity of 11:24:00 [place] [facility] GLUCOSE LEVEL 2023-02-14 Thao Romero V. [facility] of 11:24:00 [place] [facility] BLOOD UREA NITROGEN 2023-02-14 Thao Romero V. [facility] o f 11:24:00 [place] [facility] ELECTROLYTE PANEL 2023-02-14 Thao Romero V. [facility] of 11:24:00 [place] [facility] SERUM CREATININE 2023-02-14 Thao Romero V. [facility] of 11:24:00 [place] [facility] .GLOMERULAR FILTRATION RATE 2023-02-14 Thao Romero V. [facility] ersity of 11:24:00 [place] [facility] CALCIUM LEVEL TOTAL 2023-02-14 Thao Romero V. [facility] o f 11:24:00 [place] [facility] ALBUMIN LEVEL 2023-02-14 Thao Romero V. [facility] of 11:24:00 [place] [facility] ALKALINE PHOSPHATASE 2023-02-14 Thao Romero V. [facility] of 11:24:00 [place] [facility] ALANINE AMINOTRANSFERASE 2023-02-14 Thao Romero V. Univers ity of 11:24:00 [place] [facility] ASPARTATE AMINOTRANSFERASE 2023-02-14 [facility]. [facility] of 11:24:00 [place] [facility] TOTAL PROTEIN 2023-02-14 Thao Romero V. [facility] of 11:24:00 [place] [facility] FRACTIONATED BILIRUBIN 2023-02-14 Thao Romero V. Universit y of 11:24:00 [place] [facility] Results CBC 2023-02-14 Mark [facility] of 11:24:00 [facility] MANUAL DIFFERENTIAL 2023-02-14 Mark [facility] o f 11:24:00 [facility] POC GLUCOSE SCREEN 2023-02-14 [facility] o f 02:44:00 [facility] POC GLUCOSE SCREEN 2023-02-13 [facility] o f 23:32:00 [facility] POC GLUCOSE SCREEN 2023-02-13 [facility] o f 18:19:00 [facility] POC GLUCOSE SCREEN 2023-02-13 [facility] o f 12:37:00 [facility] MAGNESIUM LEVEL 2023-02-13 [facility] of 11:42:00 [facility] PHOSPHORUS LEVEL 2023-02-13 Mark [facility] of 11:42:00 [facility] COMPLETE BLOOD COUNT W/ 2023-02-13 Mark [facility] ty of DIFFERENTIAL 11:42:00 [facility] COMPREHENSIVE METABOLIC PANEL 2023-02-13 Thao Romero V. Un iversity of 11:42:00 [place] [facility] GLUCOSE LEVEL 2023-02-13 Thao Romero V. [facility] of 11:42:00 [place] [facility] BLOOD UREA NITROGEN 2023-02-13 Thao Romero V. [facility] o f 11:42:00 [place] [facility] ELECTROLYTE PANEL 2023-02-13 Thao Romero V. [facility] of 11:42:00 [place] [facility] SERUM CREATININE 2023-02-13 Thao Romero V. [facility] of 11:42:00 [place] [facility] .GLOMERULAR FILTRATION RATE 2023-02-13 Thao Romero V. [facility] ersity of 11:42:00 [place] [facility] CALCIUM LEVEL TOTAL 2023-02-13 Thao Romero V. [facility] o f 11:42:00 [place] [facility] ALBUMIN LEVEL 2023-02-13 Thao Romero V. [facility] of 11:42:00 [place] [facility] ALKALINE PHOSPHATASE 2023-02-13 Thao Romero V. [facility] of 11:42:00 [place] [facility] ALANINE AMINOTRANSFERASE 2023-02-13 Thao Romero V. Univers ity of 11:42:00 [place] [facility] ASPARTATE AMINOTRANSFERASE 2023-02-13 Thao Romero V. Unive rsity of 11:42:00 [place] [facility] TOTAL PROTEIN 2023-02-13 Thao Romero V. [facility] of 11:42:00 [place] [facility] FRACTIONATED BILIRUBIN 2023-02-13 Thao Romero V. Universit y of 11:42:00 [place] [facility] Results CBC 2023-02-13 Mark [facility] 11:42:00 [facility] MANUAL DIFFERENTIAL 2023-02-13 [facility] o f 11:42:00 [facility] POC GLUCOSE SCREEN 2023-02-13 [facility] o f 03:26:00 [facility] POC GLUCOSE SCREEN 2023-02-13 [facility] o f 00:20:00 [facility] POC GLUCOSE SCREEN 2023-02-12 [facility] o f 20:06:00 [facility] POC GLUCOSE SCREEN 2023-02-12 [facility] o f 15:18:00 [facility] GENERAL LABORATORY ADD ON 2023-02-12 Kimberli Cortes sity of TEST 14:33:00 [place] [facility] POC GLUCOSE SCREEN 2023-02-12 [facility] o f 13:55:00 [facility] MAGNESIUM LEVEL 2023-02-12 Mark [facility] 10:34:00 [facility] PHOSPHORUS LEVEL 2023-02-12 Mark [facility] 10:34:00 [facility] COMPLETE BLOOD COUNT W/ 2023-02-12 Noel Flores ty of DIFFERENTIAL 10:34:00 [facility]3]elizabeth [place] [facility] COMPREHENSIVE METABOLIC PANEL 2023-02-12 Thao Romero V. Un iversity of 10:34:00 [place] [facility] GLUCOSE LEVEL 2023-02-12 Thao Romero V. [facility] 10:34:00 [place] [facility] BLOOD UREA NITROGEN 2023-02-12 Thao Romero V. [facility] o f 10:34:00 [place] [facility] ELECTROLYTE PANEL 2023-02-12 Thao Romero V. [facility] of 10:34:00 [place] [facility] SERUM CREATININE 2023-02-12 Thao Romero V. [facility] of 10:34:00 [place] [facility] .GLOMERULAR FILTRATION RATE 2023-02-12 Thao Romero V. [facility] ersity of 10:34:00 [place] [facility] CALCIUM LEVEL TOTAL 2023-02-12 Thao Romero V. [facility] o f 10:34:00 [place] [facility] ALBUMIN LEVEL 2023-02-12 Thao Romero V. [facility] of 10:34:00 [place] [facility] ALKALINE PHOSPHATASE 2023-02-12 Thao Romero V. [facility] of 10:34:00 [place] [facility] ALANINE AMINOTRANSFERASE 2023-02-12 Thao Romero V. Univers ity of 10:34:00 [place] [facility] ASPARTATE AMINOTRANSFERASE 2023-02-12 Thao Romero V. Unive rsity of 10:34:00 [place] [facility] TOTAL PROTEIN 2023-02-12 Thao Romero V. [facility] of 10:34:00 [place] [facility] FRACTIONATED BILIRUBIN 2023-02-12 Thao Romero V. Universit y of 10:34:00 [place] [facility] Results CBC 2023-02-12 [facility] 10:34:00 [facility] MANUAL DIFFERENTIAL 2023-02-12 [facility] o f 10:34:00 [facility] PROCALCITONIN 2023-02-12 Replaced by [facility] 10:34:00 [facility] POC GLUCOSE SCREEN 2023-02-12 [facility] o f 03:16:00 Silvia Bere GRIFFIN [facility] POC GLUCOSE SCREEN 2023-02-12 [facility] o f 00:01:00 Silvia [place] [facility] POC GLUCOSE SCREEN 2023-02-11 [facility] o f 18:59:00 Silvia [place] [facility] POC GLUCOSE SCREEN 2023-02-11 [facility] o f 13:46:00 [facility] MAGNESIUM LEVEL 2023-02-11 [facility] 10:42:00 [facility] PHOSPHORUS LEVEL 2023-02-11 [facility] 10:42:00 [facility] COMPLETE BLOOD COUNT W/ 2023-02-11 Mark [facility] ty of DIFFERENTIAL 10:42:00 [facility] COMPREHENSIVE METABOLIC PANEL 2023-02-11 Thao Romero V. Un iversity of 10:42:00 [place] [facility] GLUCOSE LEVEL 2023-02-11 Thao Romero V. [facility] of 10:42:00 [place] [facility] BLOOD UREA NITROGEN 2023-02-11 Thao Romero V. [facility] o f 10:42:00 [place] [facility] ELECTROLYTE PANEL 2023-02-11 Thao Romero V. [facility] of 10:42:00 [place] [facility] SERUM CREATININE 2023-02-11 Thao Romero V. [facility] of 10:42:00 [place] [facility] .GLOMERULAR FILTRATION RATE 2023-02-11 Thao Romero V. Univ ersity of 10:42:00 [place] [facility] CALCIUM LEVEL TOTAL 2023-02-11 Thao Romero V. [facility] o f 10:42:00 [place] [facility] ALBUMIN LEVEL 2023-02-11 Thao Romero V. University of 10:42:00 [place] [facility] ALKALINE PHOSPHATASE 2023-02-11 Thao Romero V. University of 10:42:00 [place] [facility] ALANINE AMINOTRANSFERASE 2023-02-11 Thao Romero V. Univers ity of 10:42:00 [place] [facility] ASPARTATE AMINOTRANSFERASE 2023-02-11 Thao Romero V. Unive rsity of 10:42:00 [place] [facility] TOTAL PROTEIN 2023-02-11 Thao Romero V. University of 10:42:00 [place] MD Liane olivier [facility] FRACTIONATED BILIRUBIN 2023-02-11 Thao Romero V. Universit y of 10:42:00 [place] MD Liane olivier [facility] Results CBC 2023-02-11 Eun Flores of 10:42:00 [facility] MANUAL DIFFERENTIAL 2023-02-11 Mark [facility] o f 10:42:00 [facility] MAXILLOFACIAL AREA W 2023-02-11 [facility] ity of CONTRAST 09:15:00 [facility] POC GLUCOSE SCREEN 2023-02-11 [facility] o f 03:42:00 [facility] POC GLUCOSE SCREEN 2023-02-10 [facility] o f 22:17:00 [facility] POC GLUCOSE SCREEN 2023-02-10 [facility] o f 17:27:00 [facility] POC GLUCOSE SCREEN 2023-02-10 [facility] o f 13:52:00 [facility] MAGNESIUM LEVEL 2023-02-10 Mark [facility] 10:43:00 [facility] PHOSPHORUS LEVEL 2023-02-10 Mark [facility] of 10:43:00 [facility] COMPLETE BLOOD COUNT W/ 2023-02-10 Noel Flores ty of DIFFERENTIAL 10:43:00 [facility]3]elizabeth [place] [facility] COMPREHENSIVE METABOLIC PANEL 2023-02-10 Thao Romero V. Un iversity of 10:43:00 [place] MD Liane olivier [facility] GLUCOSE LEVEL 2023-02-10 Thao Romero V. [facility] of 10:43:00 Bere Rob [facility] BLOOD UREA NITROGEN 2023-02-10 Thao Romero V. [facility] o f 10:43:00 [place] MD Liane olivier [facility] ELECTROLYTE PANEL 2023-02-10 Thao Romero V. [facility] of 10:43:00 [place] MD Rob [facility] SERUM CREATININE 2023-02-10 Thao Romero V. [facility] of 10:43:00 [place] [facility] .GLOMERULAR FILTRATION RATE 2023-02-10 hTao Romero V. Univ ersity of 10:43:00 [place] [facility] CALCIUM LEVEL TOTAL 2023-02-10 RomeroThao huynh V. [facility] o f 10:43:00 [place] [facility] ALBUMIN LEVEL 2023-02-10 Thao Romero V. [facility] of 10:43:00 [place] [facility] ALKALINE PHOSPHATASE 2023-02-10 Thao Romero . B[facility] of 10:43:00 [place] [facility] ALANINE AMINOTRANSFERASE 2023-02-10 Thao Romero V. Univers ity of 10:43:00 [place] [facility] ASPARTATE AMINOTRANSFERASE 2023-02-10 Thao Romero V. Unive rsity of 10:43:00 [place] [facility] TOTAL PROTEIN 2023-02-10 Thao Romero V. [facility] of 10:43:00 [place] [facility] FRACTIONATED BILIRUBIN 2023-02-10 Thao Romero V. Universit y of 10:43:00 [place] [facility] Results CBC 2023-02-10 [facility] 10:43:00 [facility]UAL [facility]ENTIAL 2023-02-10 [facility] o f 10:43:00 [place] [facility] [place] MD [facility] POC GLUCOSE SCREEN 2023-02-10 [facility] o f 03:27:00 Silvia Blackburn MD [facility] POC GLUCOSE SCREEN 2023-02-09 [facility] o f 22:11:00 Silvia Blackburn MD [facility] POC GLUCOSE SCREEN 2023-02-09 [facility] o f 18:18:00 Silvia Blackburn MD [facility] POC GLUCOSE SCREEN 2023-02-09 [facility] o f 13:12:00 Silvia Blackburn MD [facility] MAGNESIUM LEVEL 2023-02-09 Mark [facility] 10:37:00 [place] [facility] PHOSPHORUS LEVEL 2023-02-09 Mark [facility] of 10:37:00 [place] [facility] COMPLETE BLOOD COUNT W/ 2023-02-09 Noel Floresi ty of DIFFERENTIAL 10:37:00 [facility] COMPREHENSIVE METABOLIC PANEL 2023-02-09 Thao Romero V. Un iversity of 10:37:00 [place] [facility] CREATINE KINASE 2023-02-09 Shelby José [employer] of 10:37:00 [place] [facility] GLUCOSE LEVEL 2023-02-09 Thao Romero V. [facility] of 10:37:00 [place] [facility] BLOOD UREA NITROGEN 2023-02-09 Thao Romero V. [facility] o f 10:37:00 [place] [facility] ELECTROLYTE PANEL 2023-02-09 Thao Romero V. [facility] of 10:37:00 [place] [facility] SERUM CREATININE 2023-02-09 Thao Romero V. [facility] of 10:37:00 [place] [facility] .GLOMERULAR FILTRATION RATE 2023-02-09 Thao Romero V. Univ ersity of 10:37:00 [place] [facility] CALCIUM LEVEL TOTAL 2023-02-09 Thao Romero V. [facility] o f 10:37:00 [place] [facility] ALBUMIN LEVEL 2023-02-09 Thao Romero V. [facility] of 10:37:00 [place] [facility] ALKALINE PHOSPHATASE 2023-02-09 Thao Romero V. [facility] of 10:37:00 [place] [facility] ALANINE AMINOTRANSFERASE 2023-02-09 Thao Romero V. Univers ity of 10:37:00 [place] [facility] ASPARTATE AMINOTRANSFERASE 2023-02-09 Thao Romero V. Unive rsity of 10:37:00 [place] [facility] TOTAL PROTEIN 2023-02-09 Thao Romero V. [facility] of 10:37:00 [place] [facility] FRACTIONATED BILIRUBIN 2023-02-09 Thao Romero V. Universit y of 10:37:00 [place] [facility] Results CBC 2023-02-09 Mark [facility] of 10:37:00 [facility] MANUAL DIFFERENTIAL 2023-02-09 Mark [facility] o f 10:37:00 [facility]3]elizabeth Blackburn MD [facility] POC GLUCOSE SCREEN 2023-02-09 Derrick Gill Universi ty of 03:21:00 [place] [facility] POC GLUCOSE SCREEN 2023-02-08 SebastianDerrick Quintero Universi ty of 23:32:00 [place] [facility] US ARM VENOUS DOPPLER 2023-02-08 Derrick Gill Unive rsity of BILATERAL 23:28:54 [place] [facility] ECHOCARDIOGRAM 2D COMPLETE W 2023-02-08 Thao Romero V. Uni versity of CONTRAST 19:23:53 [place] [facility] POC GLUCOSE SCREEN 2023-02-08 Derrick Gill Universi ty of 17:21:00 [place] [facility] POC GLUCOSE SCREEN 2023-02-08 SebastianDerrick Quintero Universi ty of 12:46:00 [place] [facility] MAGNESIUM LEVEL 2023-02-08 Mark [facility] of 11:14:00 [facility] PHOSPHORUS LEVEL 2023-02-08 Mark [facility] of 11:14:00 [facility] COMPLETE BLOOD COUNT W/ 2023-02-08 Mark [facility] ty of DIFFERENTIAL 11:14:00 [facility]3]elizabeth Blackburn MD [facility] COMPREHENSIVE METABOLIC PANEL 2023-02-08 Thao Romero V. Un iversity of 11:14:00 [place] [facility] GLUCOSE LEVEL 2023-02-08 Thao Romero V. [facility] of 11:14:00 Bere GRIFFIN [facility] BLOOD UREA NITROGEN 2023-02-08 Thao Romero V. [facility] o f 11:14:00 [place] [facility] ELECTROLYTE PANEL 2023-02-08 Thao Romero V. [facility] of 11:14:00 [place] [facility] SERUM CREATININE 2023-02-08 Thao Romero V. [facility] of 11:14:00 [place] [facility] .GLOMERULAR FILTRATION RATE 2023-02-08 Thao Romero V. [facility] ersity of 11:14:00 [place] [facility] CALCIUM LEVEL TOTAL 2023-02-08 Thao Romero V. [facility] o f 11:14:00 [place] MD Rob [facility] ALBUMIN LEVEL 2023-02-08 Thao Romero V. [facility] 11:14:00 [place] [facility] ALKALINE PHOSPHATASE 2023-02-08 Thao Romero V. [facility] 11:14:00 [place] [facility] ALANINE AMINOTRANSFERASE 2023-02-08 Thao Romero V. Univers ity of 11:14:00 [place] [facility] ASPARTATE AMINOTRANSFERASE 2023-02-08 Thao Romero V. [facility] rs[facility] of 11:14:00 [place] [facility] TOTAL PROTEIN 2023-02-08 Th[facility]ero [facility] of 11:14:00 [place] [facility] FRACTIONATED BILIRUBIN 2023-02-08 Thao Romero V. Universit y of 11:14:00 [place] [facility] Results CBC 2023-02-08 [facility] of 11:14:00 [facility] MANUAL DIFFERENTIAL 2023-02-08 [facility] o f 11:14:00 [facility] POC GLUCOSE SCREEN 2023-02-08 Morgan-Leon Derrick Universi ty of 02:47:00 [place] MD Rob [facility] POC GLUCOSE SCREEN 2023-02-08 Morgan-Dellan, Derrick Universi ty of 00:12:00 [place] MD Rob [facility] POC GLUCOSE SCREEN 2023-02-07 Morgan-Dellan, Derrick Universi ty of 22:43:00 [place] [facility] POC GLUCOSE SCREEN 2023-02-07 Morgan-Dellan, Derrick Universi ty of 18:16:00 [place] MD Liane olivier [facility] POC GLUCOSE SCREEN 2023-02-07 Morgan-Dellan, Derrick Universi ty of 13:48:00 [place] MD Rob [facility] BLOODCULTURE 2023-02-07 Tim Nguyen [facility] of 11:52:00 [place] [facility] HIV-1/2 ANTIGEN AND 2023-02-07 Thao Romero V. B[facility] o f ANTIBODIES, FOURTH GENERATION 11:52:00 Dereck astudillo MD [facility] HEPATITIS B SURFACE ANTIGEN, 2023-02-07 Thao Romero V. Uni versity of SERUM 11:52:00 [place] [facility] HEPATITIS B CORE ANTIBODY 2023-02-07 Thao Romero V. [facility] sity of 11:52:00 [place] [facility] HEPATITIS C VIRUS ANTIBODY 2023-02-07 Thao Romero V. Unive rsity of 11:52:00 [place] [facility] FERRITIN LVL 2023-02-07 Thao Romero V. [facility] 11:52:00 [place] [facility] TRANSFERRIN 2023-02-07 Thao Romero V. [facility] 11:52:00 [place] [facility] IRON LEVEL 2023-02-07 Thao Romero V. [facility] 11:52:00 [place] [facility] MAGNESIUM LEVEL 2023-02-07 [facility] 11:52:00 [facility] PHOSPHORUS LEVEL 2023-02-07 Replaced by [facility] 11:52:00 [facility] COMPLETE BLOOD COUNT W/ 2023-02-07 [facility] DIFFERENTIAL 11:52:00 [facility] COMPREHENSIVE METABOLIC PANEL 2023-02-07 Thao Romero V. Un iversity of 11:52:00 [place] [facility] LIPID PANEL 2023-02-07 Thao Romero V. [facility] of 11:52:00 [place] [facility] HEMOGLOBIN A1C 2023-02-07 Thao Romero V. [facility] 11:52:00 [place] [facility] GLUCOSE LEVEL 2023-02-07 Thao Romero V. [facility] of 11:52:00 [place] [facility] BLOOD UREA NITROGEN 2023-02-07 Thao Romero V. [facility] o f 11:52:00 [place] [facility] ELECTROLYTE PANEL 2023-02-07 Thao Romero V. [facility] 11:52:00 [place] [facility] SERUM CREATININE 2023-02-07 Thao Romero V. [facility] of 11:52:00 [place] [facility] .GLOMERULAR FILTRATION RATE 2023-02-07 Thao Romero V. [facility] ersity of 11:52:00 [place] [facility] CALCIUM LEVEL TOTAL 2023-02-07 Thao Romero V. [facility] f 11:52:00 [place] [facility] ALBUMIN LEVEL 2023-02-07 Thao Romero V. [facility] of 11:52:00 [place] [facility] ALKALINE PHOSPHATASE 2023-02-07 Thao Romero V. [facility] of 11:52:00 [place] [facility] ALANINE AMINOTRANSFERASE 2023-02-07 Thao Romero V. [facility] ity of 11:52:00 [place] [facility] ASPARTATE AMINOTRANSFERASE 2023-02-07 Estella [facility] Amelia [facility] 11:52:00 [place] [facility] TOTAL PROTEIN 2023-02-07 Thao Romero V. [facility] of 11:52:00 [place] [facility] FRACTIONATED BILIRUBIN 2023-02-07 Thao Romero [facility] 11:52:00 [place] [facility] Results CBC 2023-02-07 [facility] of 11:52:00 [facility] MANUAL DIFFERENTIAL 2023-02-07 [facility] o f 11:52:00 [facility] C DIFFICILE DNA ASSAY 2023-02-07 Thao Romero V. [facility] 10:18:00 [place] [facility] C DIFFICILE DNA ASSAY PATH 2023-02-07 Thao Romero V. Unive rsity of REVIEW 10:18:00 [place] [facility] GASTROINTESTINAL MULTIPLEX 2023-02-07 Thao Romero V. Unive rsity of PANEL 10:16:00 [place] [facility] GASTROINTESTINAL MULTIPLEX 2023-02-07 [facility] PANEL PATH REVIEW 10:16:00 [place] MD Ruelas [facility] POC GLUCOSE SCREEN 2023-02-07 Thao Romero V[facility] 03:51:00 [place] [facility] Center POC GLUCOSE SCREEN 2023-02-07 Thao Romero V. [facility] 00:28:00 [place] [facility] EKG, 12-LEAD (PORTABLE) 2023-02-07 Celso IonaWiley Cohen ity of 00:00:00 [place] [facility] POC GLUCOSE SCREEN 2023-02-06 Thao Romero V[facility] 22:13:00 [place] [facility] Center POC GLUCOSE SCREEN 2023-02-06 Thao Romero V. [facility] 19:18:00 [place] [facility] POC GLUCOSE SCREEN 2023-02-06 Thao Romero V[facility] 18:26:00 [place] [facility] GENERAL LABORATORY ADD ON 2023-02-06 Thao Romero V. Univ sity of TEST 16:44:00 [place] [facility] BLOODCULTURE 2023-02-06 [facility] 16:11:00 [facility] Center POC GLUCOSE SCREEN 2023-02-06 Esthela Amanda Benge of 14:46:00 [place] [facility] Center POC GLUCOSE SCREEN 2023-02-06 [facility] 12:40:00 [place] [facility] POC GLUCOSE SCREEN 2023-02-06 [facility] Amanda Benge of 08:20:00 [place] [facility] BASIC METABOLIC PANEL, 2023-02-06 Noel Floresit y of CALCIUM TOTAL 08:05:00 [facility] MAGNESIUM LEVEL 2023-02-06 Mark [facility] 08:05:00 [facility] PHOSPHORUS LEVEL 2023-02-06 Mark [facility] 08:05:00 [facility] COMPLETE BLOOD COUNT W/ 2023-02-06 Noel Floresi ty of DIFFERENTIAL 08:05:00 [facility] GLUCOSE LEVEL 2023-02-06 Cathie Meneses [facility] 08:05:00 [place] [facility] BLOOD UREA NITROGEN 2023-02-06 Cathie Meneses [facility] 08:05:00 [place] [facility] ELECTROLYTE PANEL 2023-02-06 Cathie Meneses [facility] 08:05:00 [place] [facility] SERUM CREATININE 2023-02-06 Cathie Meneses [facility] 08:05:00 [place] [facility] .GLOMERULAR FILTRATION RATE 2023-02-06 Cathie Meneses Uni versity of 08:05:00 [place] [facility] CALCIUM LEVEL TOTAL 2023-02-06 Cathie Meneses [facility] 08:05:00 [place] [facility] Results CBC 2023-02-06 Cathie Meneses [facility] 08:05:00 [place] [facility] MANUAL DIFFERENTIAL 2023-02-06 Cathie Meneses [facility] 08:05:00 [place] [facility] NT PRO BNP 2023-02-06 Cathie Meneses [facility] 08:05:00 [place] [facility] PROCALCITONIN 2023-02-06 Cathie Meneses [facility] 08:05:00 [place] [facility] C REACTIVE PROTEIN 2023-02-06 Cathie Meneses [facility] o f 08:05:00 [place] [facility] POC GLUCOSE SCREEN 2023-02-06 Amanda Proctor [facility] 06:17:00 [place] [facility] TROPONIN T 2023-02-06 Irina Houston [facility] 06:09:00 [place] [facility] URINE CULTURE 2023-02-06 Irina Houston [facility] 05:40:00 [place] [facility] PROTHROMBIN TIME 2023-02-06 Deneen Guevara [facility] 01:26:00 [place] [facility] APTT 2023-02-06 Deneen Guevara [facility] 01:26:00 [place] [facility] D DIMER 2023-02-06 Deneen Guevara [facility] 01:26:00 [place] [facility] LACTIC ACID, VENOUS 2023-02-06 Deneen Guevara [facility] o f 01:26:00 [place] [facility] XR ABDOMEN AP 2023-02-05 Amanda Proctor of 23:59:27 [place] Liane olivier [facility] XR CHEST 1 VW 2023-02-05 Amanda Proctor of 23:57:49 [place] [facility] COVID-19 (SARS-COV-2) 2023-02-05 Amanda Proctor of ASYMPTOMATIC-LT 22:09:00 [place] Liane olivier [facility] POC GLUCOSE SCREEN 2023-02-05 Deneen Guevara [facility] of 21:27:00 [place] Liane olivier [facility] BLOODCULTURE 2023-02-05 Amanda Proctor of 20:39:00 [place] [facility] BLOODCULTURE 2023-02-05 Esthela, Amanda Benge of 20:30:00 [place] [facility] COMPLETE BLOOD COUNT W/ 2023-02-05 Esthela, Amanda [facility] ty of DIFFERENTIAL 20:30:00 [place] [facility] MAGNESIUM LEVEL 2023-02-05 Amanda Proctor of 20:30:00 [place] [facility] PHOSPHORUS LEVEL 2023-02-05 Amanda Proctor of 20:30:00 [place] [facility] NT PRO BNP 2023-02-05 Esthela, Amanda Haq of 20:30:00 [place] [facility] TROPONIN T 2023-02-05 Esthela, Amanda Haq of 20:30:00 [place] [facility] CREATINE KINASE 2023-02-05 Amanda Proctor of 20:30:00 [place] Liane olivier [facility] CKMB 2023-02-05 Amanda Proctor of 20:30:00 [place] Liane olivier [facility] C REACTIVE PROTEIN 2023-02-05 Esthela, Amanda Haq of 20:30:00 [place] Liane olivier [facility] COMPREHENSIVE METABOLIC PANEL 2023-02-05 Amanda Proctor iversity of 20:30:00 [place] Liane olivier [facility] PROCALCITONIN 2023-02-05 Esthela, Amanda Haq of 20:30:00 [place] Liane olivier [facility] AMYLASE LEVEL 2023-02-05 Esthela, Amanda Haq of 20:30:00 [place] Anderso [facility] LIPASE LEVEL 2023-02-05 Amanda Proctor B[facility] of 20:30:00 [place] MD Liane olivier [facility] Results CBC 2023-02-05 Esthela, Amanda Benge of 20:30:00 [place] MD Liane olivier [facility] MANUAL DIFFERENTIAL 2023-02-05 Amanda Proctor [facility] o f 20:30:00 [place] MD Liane olivier [facility] GLUCOSE LEVEL 2023-02-05 Esthela, Amanda Benge of 20:30:00 [place] MD Liane olivier [facility] BLOOD UREA NITROGEN 2023-02-05 Esthela, Amanda Benge o f 20:30:00 [place] [facility] ELECTROLYTE PANEL 2023-02-05 Amanda Proctor [facility] of 20:30:00 [place] [facility] soy [facility] SERUM CREATININE 2023-02-05 Esthela, Amanda Benge of 20:30:00 [place] [facility] soy [facility] .GLOMERULAR FILTRATION RATE 2023-02-05 Amanda Proctor [facility] ersity of 20:30:00 [place] MD Carreon soy [facility] CALCIUM LEVEL TOTAL 2023-02-05 Amanda Proctor o f 20:30:00 [place] MD Carreon soy [facility] ALBUMIN LEVEL 2023-02-05 Amanda Proctor [facility] of 20:30:00 [place] MD Liane olivier [facility] ALKALINE PHOSPHATASE 2023-02-05 Amanda Proctor [facility] of 20:30:00 [place] Liane olivier [facility] ALANINE AMINOTRANSFERASE 2023-02-05 Amanda Proctor ity of 20:30:00 [place] Liane olivier [facility] ASPARTATE AMINOTRANSFERASE 2023-02-05 Amanda Proctor [facility] rsity of 20:30:00 [place] Liane olivier [facility] TOTAL PROTEIN 2023-02-05 Amanda Proctor B[facility] of 20:30:00 [place] Liane olivier [facility] FRACTIONATED BILIRUBIN 2023-02-05 Amanda Proctorit y of 20:30:00 [place] Liane olivier [facility] URINALYSIS MICROSCOPIC 2023-02-05 Irina [facility] ty of 05:39:00 [place] MD Liane olivier [facility] EKG, 12-LEAD (PORTABLE) 2023-02-05 Amanda [facility]ctor [facility] 00:00:00 Bere olivier [facility] COMPREHENSIVE METABOLIC PANEL 2023-02-04 Vaibhav Rosario Benge of 17:33:52 Bere olivier [facility] COMPLETE BLOOD COUNT W/ 2023-02-04 Vaibhav Rosario [facility] rsity of DIFFERENTIAL 17:33:52 Bere olivier [facility] MAGNESIUM LEVEL 2023-02-04 Kenny Cary, [facility] of 17:33:52 Bere olivier [facility] PHOSPHORUS LEVEL 2023-02-04 Price Cary, [facility] o f 17:33:52 Bere olivier [facility] GLUCOSE LEVEL 2023-02-04 [facility] of 17:33:52 Bere olivier [facility] BLOOD UREA NITROGEN 2023-02-04 [facility] 17:33:52 Bere olivier [facility] ELECTROLYTE PANEL 2023-02-04 Vaibhav Rosaroi Benge of 17:33:52 Bere olivier [facility] SERUM CREATININE 2023-02-04 Kenny Power [facility] o f 17:33:52 Bere Rob [facility] .GLOMERULAR FILTRATION RATE 2023-02-04 Vaibhav Rosario U niversity of 17:33:52 Bere olivier [facility] CALCIUM LEVEL TOTAL 2023-02-04 Vaibhav Rosario [facility] y of 17:33:52 Bere olivier [facility] ALBUMIN LEVEL 2023-02-04 Vaibhav Rosario B[facility] of 17:33:52 Bere olivier [facility] ALKALINE PHOSPHATASE 2023-02-04 Kenny Power [facility] ty of 17:33:52 Bere olivier [facility] ALANINE AMINOTRANSFERASE 2023-02-04 Vaibhav Rosario [facility] ersity of 17:33:52 Bere olivier [facility] ASPARTATE AMINOTRANSFERASE 2023-02-04 Vaibhav Rosario iversity of 17:33:52 Bere olivier [facility] TOTAL PROTEIN 2023-02-04 Vaibhav Rosario [facility] of 17:33:52 Bere olivier [facility] FRACTIONATED BILIRUBIN 2023-02-04 Vaibhav Rosario [facility] sity of 17:33:52 [place] [facility] Results CBC 2023-02-04 Pricekourtney Power Patarturo [facility] of 17:33:52 [place] [facility] MANUAL DIFFERENTIAL 2023-02-04 Pricekourtney Power Vaibhav [facility] y of 17:33:52 [place] MD Liane olivier [facility] POC GLUCOSE SCREEN 2023-02-01 Simbaqueba Saurabh, Universit y of 18:19:00 [facility] MD [facility] POC GLUCOSE SCREEN 2023-02-01 Simbaqueba Saurabh, Universit y of 12:47:00 Elian [place] MD Carreon soy [facility] BASIC METABOLIC PANEL, 2023-02-01 [facility] y of CALCIUM TOTAL 09:00:00 [place] MD Liane olivier [facility] MAGNESIUM LEVEL 2023-02-01 [facility] of 09:00:00 [place] MD Liane olivier [facility] PHOSPHORUS LEVEL 2023-02-01 Nabeel, [facility] of 09:00:00 [place] MD Carreon soy [facility] COMPLETE BLOOD COUNT W/ 2023-02-01 [facility] ty of DIFFERENTIAL 09:00:00 [place] MD Liane olivier [facility] GLUCOSE LEVEL 2023-02-01 [facility] of 09:00:00 [place] MD Liane olivier [facility] BLOOD UREA NITROGEN 2023-02-01 [facility], [facility] o f 09:00:00 [place] Liane olivier [facility] ELECTROLYTE PANEL 2023-02-01 Nabeel [facility] of 09:00:00 [place] Liane olivier [facility] SERUM CREATININE 2023-02-01 Nabeel, [facility] of 09:00:00 [place] MD Liane olivier [facility] .GLOMERULAR FILTRATION RATE 2023-02-01 Nabeel [facility] ersity of 09:00:00 [place] MD Liane olivier [facility] CALCIUM LEVEL TOTAL 2023-02-01 Nabeel, [facility] o f 09:00:00 [place] Liane olivier [facility] Results CBC 2023-02-01 Nabeel [facility] of 09:00:00 [place] [facility] MANUAL DIFFERENTIAL 2023-02-01 Nabeel, [facility] o f 09:00:00 [place] MD Liane olivier [facility] POC GLUCOSE SCREEN 2023-02-01 Simbaqueba Saurabh, Universit y of 02:36:00 Elian [place] Liane olivier [facility] POC GLUCOSE SCREEN 2023-01-31 Simbaqueba Saurabh, Universit y of 21:55:00 Elian [place] [facility] POC GLUCOSE SCREEN 2023-01-31 Simbaqueba Saurabh, Universit y of 17:13:00 Elian [place] MD Liane olivier [facility] POC GLUCOSE SCREEN 2023-01-31 Simbaqueba Saurabh, Universit y of 13:08:00 Elian [place] [facility] BASIC METABOLIC PANEL, 2023-01-31 [facility] y of CALCIUM TOTAL 08:15:00 [place] MD Liane olivier [facility] MAGNESIUM LEVEL 2023-01-31 [facility] of 08:15:00 [place] [facility] PHOSPHORUS LEVEL 2023-01-31 [facility] 08:15:00 [place] [facility] COMPLETE BLOOD COUNT W/ 2023-01-31 [facility] ty of DIFFERENTIAL 08:15:00 [place] [facility] 2023-01-31 [facility] of 08:15:00 [place] [facility] BLOOD UREA NITROGEN 2023-01-31 [facility] o f 08:15:00 [place] MD Carreon soy [facility] ELECTROLYTE PANEL 2023-01-31 [facility] of 08:15:00 [place] [facility] SERUM CREATININE 2023-01-31 Nabeel, [facility] of 08:15:00 [place] [facility] .GLOMERULAR FILTRATION RATE 2023-01-31 [facility] ersity of 08:15:00 [place] [facility] CALCIUM LEVEL TOTAL 2023-01-31 [facility] o f 08:15:00 [place] [facility] Results CBC 2023-01-31 [facility] of 08:15:00 [place] [facility] MANUAL DIFFERENTIAL 2023-01-31 Nabeel, [facility] o f 08:15:00 [place] Liane olivier [facility] POC GLUCOSE SCREEN 2023-01-31 Simbaqueba Saurabh, Universit y of 02:23:00 Elian [place] Liane olivier [facility] POC GLUCOSE SCREEN 2023-01-30 Simbaqueba Saurabh, Universit y of 22:38:00 Elian [place] Liane olivier [facility] POC GLUCOSE SCREEN 2023-01-30 Simbaqueba Saurabh, Universit y of 17:51:00 Elian [place] Liane olivier [facility] POC GLUCOSE SCREEN 2023-01-30 Simbaqueba Saurabh, Universit y of 14:45:00 Elian [place] [facility] BASIC METABOLIC PANEL, 2023-01-30 [facility] y of CALCIUM TOTAL 08:14:00 [place] MD Carreon soy [facility] MAGNESIUM LEVEL 2023-01-30 [facility] of 08:14:00 [place] Liane olivier [facility] PHOSPHORUS LEVEL 2023-01-30 [facility] of 08:14:00 [place] [facility] COMPLETE BLOOD COUNT W/ 2023-01-30 [facility] ty of DIFFERENTIAL 08:14:00 [place] MD Carreon soy [facility] GLUCOSE LEVEL 2023-01-30 [facility] of 08:14:00 [place] [facility] BLOOD UREA NITROGEN 2023-01-30 [facility] o f 08:14:00 [place] Liane olivier [facility] ELECTROLYTE PANEL 2023-01-30 [facility] of 08:14:00 [place] Liane olivier [facility] SERUM CREATININE 2023-01-30 [facility] of 08:14:00 [place] [facility] .GLOMERULAR FILTRATION RATE 2023-01-30 [facility] ersity of 08:14:00 [place] [facility] CALCIUM LEVEL TOTAL 2023-01-30 [facility] o f 08:14:00 [place] MD Liane olivier [facility] Results CBC 2023-01-30 [facility] of 08:14:00 [place] Liane olivier [facility] MANUAL DIFFERENTIAL 2023-01-30 [facility] f 08:14:00 Bere olivier [facility] POC GLUCOSE SCREEN 2023-01-30 Noel Onealit y of 02:40:00 Elian olivier [facility] POC GLUCOSE SCREEN 2023-01-30 Kt Deshpande Universit y of 00:24:00 Elian olivier [facility] POC GLUCOSE SCREEN 2023-01-29 Talat Oneal y of 22:51:00 [place] olivier [facility] VERIFY CATHETER TIP PLACEMENT 2023-01-29 Justo Banuelos Benge of 20:08:01 Bere olivier [facility] XR CHEST 1 VW POST IMPLANT 2023-01-29 Erich Oneal niversity of 19:59:15 Elian olivier [facility] INSERT VASCULAR ACCESS DEVICE 2023-01-29 Eun Oneal of 19:04:31 El[place] olivier [facility] POC GLUCOSE SCREEN 2023-01-29 Kt Deshpande Universit y of 19:04:00 Elian olivier [facility] POC GLUCOSE SCREEN 2023-01-29 Kt Deshpande Universit y of 13:50:00 [place] Rob [facility] BASIC METABOLIC PANEL, 2023-01-29 Nabeel Melodyxiao Gilliland y of CALCIUM TOTAL 08:33:00 Beer olivier [facility] MAGNESIUM LEVEL 2023-01-29 Nabeel [facility] of 08:33:00 [place] Liane olivier [facility] PHOSPHORUS LEVEL 2023-01-29 Nabeel [facility] of 08:33:00 [place] MD Liane olivier [facility] COMPLETE BLOOD COUNT W/ 2023-01-29 Nabeel [place] [facility] ty of DIFFERENTIAL 08:33:00 Bere olivier [facility] GLUCOSE LEVEL 2023-01-29 Nabeel [facility] of 08:33:00 [place] MD Rob [facility] BLOOD UREA NITROGEN 2023-01-29 [facility] o f 08:33:00 [place] Liane olivier [facility] ELECTROLYTE PANEL 2023-01-29 Nabeel [facility] of 08:33:00 [place] MD Liane olivier [facility] SERUM CREATININE 2023-01-29 [facility] of 08:33:00 [place] MD Liane olivier [facility] .GLOMERULAR FILTRATION RATE 2023-01-29 [facility] ersity of 08:33:00 [place] MD Liane olivier [facility] CALCIUM LEVEL TOTAL 2023-01-29 [facility] o f 08:33:00 [place] MD Liane olivier [facility] Results CBC 2023-01-29 [facility] of 08:33:00 [place] MD Liane olivier [facility] MANUAL DIFFERENTIAL 2023-01-29 [facility] o f 08:33:00 [place] MD Liane olivier [facility] POC GLUCOSE SCREEN 2023-01-29 Simbaqueba Saurabh, Universit y of 03:21:00 Elian [place] MD Liane olivier [facility] POC GLUCOSE SCREEN 2023-01-28 Simbaqueba Saurabh, Universit y of 23:27:00 Elian [place] [facility]Lane [facility] POC GLUCOSE SCREEN 2023-01-28 Simbaqueba Saurabh, Universit y of 17:57:00 [facility] MD Rob [facility] POC GLUCOSE SCREEN 2023-01-28 Simbaqueba Saurabh, Universit y of 15:38:00 Elian [place] Liane olivier [facility] HEMOGLOBIN 2023-01-28 GioMana cope Benge of 13:24:00 [place] Liane olivier [facility] HEMATOCRIT 2023-01-28 Mana Powers B[facility] of 13:24:00 [place] Liane olivier [facility] POC GLUCOSE SCREEN 2023-01-28 Simbaqueba Saurabh, Universit y of 13:17:00 [facility] MD Liane olivier [facility] HEMOGLOBIN 2023-01-28 Mana Powers B[facility] of 08:00:00 [place] Liane olivier [facility] HEMATOCRIT 2023-01-28 Mana Powers B[facility] of 08:00:00 [place] MD Liane olivier [facility] BASIC METABOLIC PANEL, 2023-01-28 [facility] CALCIUM TOTAL 08:00:00 [place] MD Liane olivier [facility] MAGNESIUM LEVEL 2023-01-28 [facility] of 08:00:00 [place] MD Liane olivier [facility] PHOSPHORUS LEVEL 2023-01-28 [facility] of 08:00:00 [place] MD Liane olivier [facility] COMPLETE BLOOD COUNT W/ 2023-01-28 [facility] ty of DIFFERENTIAL 08:00:00 [place] MD Liane olivier [facility] GLUCOSE LEVEL 2023-01-28 [facility] of 08:00:00 [place] MD Liane olivier [facility] BLOOD UREA NITROGEN 2023-01-28 [facility] o f 08:00:00 [place] MD Liane olivier [facility] ELECTROLYTE PANEL 2023-01-28 [facility] of 08:00:00 [place] MD Liane olivier [facility] SERUM CREATININE 2023-01-28 [facility] of 08:00:00 [place] MD Rob [facility] .GLOMERULAR FILTRATION RATE 2023-01-28 [facility] ersity of 08:00:00 [place] MD Liane olivier [facility] CALCIUM LEVEL TOTAL 2023-01-28 [facility] o f 08:00:00 [place] MD Liane olivier [facility] Results CBC 2023-01-28 [facility] of 08:00:00 [place] MD Liane olivier [facility] MANUAL DIFFERENTIAL 2023-01-28 [facility] o f 08:00:00 [place] Liane olivier [facility] POC GLUCOSE SCREEN 2023-01-28 [facility] of 03:34:00 Jaycee [place] [facility] POC GLUCOSE SCREEN 2023-01-28 [facility] of 00:42:00 Jaycee [place] [facility] HEMOGLOBIN 2023-01-27 Gio, Mana Benge of 21:15:00 [place] [facility] HEMATOCRIT 2023-01-27 GioFormerly [facility] of 21:15:00 [place] [facility] POC GLUCOSE SCREEN 2023-01-27 [facility] of 19:38:00 Jaycee [place] [facility] POC GLUCOSE SCREEN 2023-01-27 Amanda Proctor Benge of 16:11:00 [place] [facility] POC GLUCOSE SCREEN 2023-01-27 Viets, [facility] of 13:43:00 [place] MD Liane olivier [facility] BASIC METABOLIC PANEL, 2023-01-27 [facility] CALCIUM TOTAL 07:48:00 [place] MD Liane olivier [facility] MAGNESIUM LEVEL 2023-01-27 [facility] of 07:48:00 [place] [facility] PHOSPHORUS LEVEL 2023-01-27 [facility] of 07:48:00 [place] [facility] soy [facility] COMPLETE BLOOD COUNT W/ 2023-01-27 [facility] ty of DIFFERENTIAL 07:48:00 [place] [place] [facility] GLUCOSE LEVEL 2023-01-27 [facility] of 07:48:00 [place] [facility] BLOOD UREA NITROGEN 2023-01-27 [facility] o f 07:48:00 [place] MD Carreon soy [facility] ELECTROLYTE PANEL 2023-01-27 [facility] of 07:48:00 [place] [facility] SERUM CREATININE 2023-01-27 [facility] of 07:48:00 [place] [facility] .GLOMERULAR FILTRATION RATE 2023-01-27 [facility] ersity of 07:48:00 [place] [facility] soy [facility] CALCIUM LEVEL TOTAL 2023-01-27 [facility] o f 07:48:00 [place] [facility] Results CBC 2023-01-27 [facility] of 07:48:00 [place] MD Liane olivier [facility] MANUAL DIFFERENTIAL 2023-01-27 [facility] o f 07:48:00 [place] MD Liane olivier [facility] POC GLUCOSE SCREEN 2023-01-27 [facility] Fel[facility]enge of 04:16:00 [place] MD Liane olivier [facility] URINE CULTURE 2023-01-27 Amanda Proctor of 03:45:00 [place] Liane olivier [facility] URINALYSIS WITH MICROSCOPIC 2023-01-27 Amanda Proctor [facility] ersity of IF INDICATED 03:45:00 [place] MD Liane olivier [facility] URINALYSIS MICROSCOPIC EXAM 2023-01-27 Amanda Proctor ersity of 03:45:00 [place] [facility] POC GLUCOSE SCREEN 2023-01-27 Rachid Felisa Benge of 00:34:00 [place] [facility] POC GLUCOSE SCREEN 2023-01-26 Rachid Felisa Benge of 22:30:00 Bere olivier [facility] COVID-19 (SARS-COV-2) 2023-01-26 Amanda Proctor of ASYMPTOMATIC-LT 21:34:00 Bere olivier [facility] BLOODCULTURE 2023-01-26 Amanda Proctor of 19:44:00 Bere olivier [facility] COMPLETE BLOOD COUNT W/ 2023-01-26 Amanda Proctor ty of DIFFERENTIAL 19:44:00 Bere olivier [facility] MAGNESIUM LEVEL 2023-01-26 Amanda Proctor of 19:44:00 Bere olivier [facility] PHOSPHORUS LEVEL 2023-01-26 Amanda Proctor of 19:44:00 Bere olivier [facility] FRACTIONATED BILIRUBIN 2023-01-26 Amanda Proctorit y of 19:44:00 Bere olivier [facility] AMYLASE LEVEL 2023-01-26 Amanda Proctor of 19:44:00 Bere olivier [facility] LIPASE LEVEL 2023-01-26 Amanda Proctor of 19:44:00 Bere olivier [facility] LACTATE DEHYDROGENASE 2023-01-26 Amanda Proctor of 19:44:00 Bere olivier [facility] C REACTIVE PROTEIN 2023-01-26 Amanda Proctor of 19:44:00 Bere olivier [facility] COMPREHENSIVE METABOLIC PANEL 2023-01-26 Amanda Proctor iversity of 19:44:00 Bere olivier [facility] PROCALCITONIN 2023-01-26 Amanda Proctor of 19:44:00 Bere olivier [facility] [place] Results CBC 2023-01-26 Amanda Proctor of 19:44:00 [facility]re [facility] MANUAL DIFFERENTIAL 2023-01-26 Amanda Proctor o f 19:44:00 Bere olivier [facility] [place] GLUCOSE LEVEL 2023-01-26 Amanda Proctor of 19:44:00 [place] [facility] BLOOD UREA NITROGEN 2023-01-26 [facility] o f 19:44:00 [place] [facility] ELECTROLYTE PANEL 2023-01-26 Esthela [facility] of 19:44:00 [place] [facility] SERUM CREATININE 2023-01-26 [facility] of 19:44:00 [place] [facility] .GLOMERULAR FILTRATION RATE 2023-01-26 Amanda Proctor [facility] ersity of 19:44:00 [place] [facility] CALCIUM LEVEL TOTAL 2023-01-26 [facility] o f 19:44:00 [place] [facility] ALBUMIN LEVEL 2023-01-26 [facility] of 19:44:00 [place] [facility] ALKALINE PHOSPHATASE 2023-01-26 [facility] of 19:44:00 [place] [facility] ALANINE AMINOTRANSFERASE 2023-01-26 [facility] ity of 19:44:00 [place] [facility] ASPARTATE AMINOTRANSFERASE 2023-01-26 [facility] pierce [facility] rsity of 19:44:00 [place] [facility] TOTAL PROTEIN 2023-01-26 [facility] of 19:44:00 [place] [facility] COMPREHENSIVE METABOLIC PANEL 2023-01-20 Lorena Hdez [facility] of 17:53:46 [place] [facility] COMPLETE BLOOD COUNT W/ 2023-01-20 Lorena Hdez [facility] versity of DIFFERENTIAL 17:53:46 [place] [facility] MAGNESIUM LEVEL 2023-01-20 Lorena Hdez [facility] of 17:53:46 [place] [facility] PHOSPHORUS LEVEL 2023-01-20 Lorena Hdez [facility] of 17:53:46 [place] [facility] GLUCOSE LEVEL 2023-01-20 Lorena Hdez [facility] of 17:53:46 [place] [facility] BLOOD UREA NITROGEN 2023-01-20 Lorena Hdez [facility] ity of 17:53:46 [place] [facility] ELECTROLYTE PANEL 2023-01-20 Lorena Hdezgh Univers[facility] y of 17:53:46 [place] MD Rob [facility] SERUM CREATININE 2023-01-20 [facility] of 17:53:46 [place] [facility] .GLOMERULAR FILTRATION RATE 2023-01-20 [facility] of 17:53:46 [place] MD Liane olivier [facility] CALCIUM LEVEL TOTAL 2023-01-20 [facility] it[facility] of 17:53:46 [place] [facility] ALBUMIN LEVEL 2023-01-20 [facility] of 17:53:46 [place] [facility] ALKALINE PHOSPHATASE 2023-01-20 [facility] sity of 17:53:46 [place] [facility] ALANINE AMINOTRANSFERASE 2023-01-20 [facility] iversity of 17:53:46 [place] [facility] ASPARTATE AMINOTRANSFERASE 2023-01-20 [facility] of 17:53:46 [place] [facility] TOTAL PROTEIN 2023-01-20 [facility] of 17:53:46 [place] [facility] FRACTIONATED BILIRUBIN 2023-01-20 [facility] ersity of 17:53:46 [place] [facility] Results CBC 2023-01-20 [facility] of 17:53:46 [place] [facility] MANUAL DIFFERENTIAL 2023-01-20 [facility] ity of 17:53:46 [place] MD Rob [facility] CONTROLLED SUBSTANCE 2023-01-20 [facility] PANEL, URINE 17:37:00 Rogerio Blackburn MD [facility] TETRAHYDROCANNABINOL 2023-01-20 [facility], UR 17:37:00 Rogerio Blackburn MD Lauri [facility] POC URINE DRUG SCREEN PANEL, 2023-01-20 [place], [facility] versity of QUALITATIVE 17:37:00 Rogerio Blackburn [facility] POC GLUCOSE SCREEN 2023-01-18 [place] of 18:10:00 [place] [facility] POC GLUCOSE SCREEN 2023-01-[address] [facility] of 12:46:00 [place] [facility] BASIC METABOLIC PANEL, 2023-01-18 Ankit Locke rsity of CALCIUM TOTAL 09:03:00 [place] [facility] MAGNESIUM LEVEL 2023-01-18 Ankit Locke [facility] o f 09:03:00 [place] [facility] PHOSPHORUS LEVEL 2023-01-18 Ankit Locke [facility] of 09:03:00 [place] [facility] COMPLETE BLOOD COUNT W/ 2023-01-18 Ankit Locke ersity of DIFFERENTIAL 09:03:00 [place] [facility] GLUCOSE LEVEL 2023-01-18 Ankit Locke [facility] o f 09:03:00 [place] [facility] BLOOD UREA NITROGEN 2023-01-18 Ankit Locke [facility] ty of 09:03:00 [place] [facility] ELECTROLYTE PANEL 2023-01-18 Ankit Locke [facility] of 09:03:00 [place] [facility] SERUM CREATININE 2023-01-18 Ankit Locke [facility] of 09:03:00 [place] [facility] .GLOMERULAR FILTRATION RATE 2023-01-18 Ankit Locke [facility] of 09:03:00 [place] [facility] CALCIUM LEVEL TOTAL 2023-01-18 Ankit Locke [facility] ty of 09:03:00 [place] [facility] Results CBC 2023-01-18 Ankit Locke [facility] o f 09:03:00 [place] [facility] MANUAL DIFFERENTIAL 2023-01-18 Ankit Locke [facility] ty of 09:03:00 [place] [facility] POC GLUCOSE SCREEN 2023-01-18 [facility] of 02:33:00 [place] [facility] POC GLUCOSE SCREEN 2023-01-[address] [facility] of 23:22:00 [place] [facility] POC GLUCOSE SCREEN 2023-01-17 [facility] of 17:43:00 [place] [facility] POC GLUCOSE SCREEN 2023-01-17 [facility] Hospital[facility]anaBrockNov[facility] of 13:58:00 [place] [facility] BASIC METABOLIC PANEL, 2023-01-17 Ankit Locke [facility] rsity of CALCIUM TOTAL 09:31:00 [place] [facility] MAGNESIUM LEVEL 2023-01-17 Ankit Locke [facility] o f 09:31:00 [place] [facility] PHOSPHORUS LEVEL 2023-01-17 Ankit Locke [facility] of 09:31:00 [place] [facility] COMPLETE BLOOD COUNT W/ 2023-01-17 Ankit Locke [facility] ersity of DIFFERENTIAL 09:31:00 [place] [facility] GLUCOSE LEVEL 2023-01-17 Ankit Locke [facility] o f 09:31:00 [place] [facility] BLOOD UREA NITROGEN 2023-01-17 Ankit Locke [facility] ty of 09:31:00 [place] [facility] ELECTROLYTE PANEL 2023-01-17 Ankit Locke [facility] of 09:31:00 [place] [facility] SERUM CREATININE 2023-01-17 Ankit Locke [facility] of 09:31:00 [place] [facility] .GLOMERULAR FILTRATION RATE 2023-01-17 Ankit Locke [facility] of 09:31:00 [place] [facility] CALCIUM LEVEL TOTAL 2023-01-17 Ankit Locke [facility] ty of 09:31:00 [place] [facility] Results CBC 2023-01-17 Ankit Locke [facility] o f 09:31:00 [place] [facility] MANUAL DIFFERENTIAL 2023-01-17 Ankit Locke [facility] ty of 09:31:00 [place] [facility] POC GLUCOSE SCREEN 2023-01-17 [facility] of 01:43:00 [place] [facility] POC GLUCOSE SCREEN 2023-01-[address] [facility] of 22:16:00 [place] MD Liane olivier [facility] POC GLUCOSE SCREEN 2023-01-[address] [facility] of 17:25:00 [place] [facility] POC GLUCOSE SCREEN 2023-01-[address] [facility] of 14:01:00 [place] [facility] BASIC METABOLIC PANEL, 2023-01-16 Ankit Locke [facility] rsity of CALCIUM TOTAL 11:22:00 [place] MD Carreon soy [facility] MAGNESIUM LEVEL 2023-01-16 Ankit Locke o f 11:22:00 [place] [facility] PHOSPHORUS LEVEL 2023-01-16 Ankit Locke [facility] of 11:22:00 [place] [facility] COMPLETE BLOOD COUNT W/ 2023-01-16 Ankit Locke ersity of DIFFERENTIAL 11:22:00 [place] MD Liane olivier [facility] GLUCOSE LEVEL 2023-01-16 Ankit Locke o f 11:22:00 [place] [facility] BLOOD UREA NITROGEN 2023-01-16 [facility]kit Locke [facility] of 11:22:00 [place] [facility] 2023-01-16 Ankit Locke [facility] of 11:22:00 [place] [facility] SERUM CREATININE 2023-01-16 Ankit Locke [facility] of 11:22:00 [place] [facility] .GLOMERULAR FILTRATION RATE 2023-01-16 Ankit Locke [facility] of 11:22:00 [place] MD Rob [facility] CALCIUM LEVEL TOTAL 2023-01-16 [facility]kit Locke [facility] of 11:22:00 [place] Rob [facility] Results CBC 2023-01-16 Ankit Locke o f 11:22:00 [place] MD Liane olivier [facility] MANUAL DIFFERENTIAL 2023-01-16 Ankit Locke [facility] of 11:22:00 [place] Rob [facility] POC GLUCOSE SCREEN 2023-01-[address] [facility] of 01:34:00 [place] [facility] POC GLUCOSE SCREEN 2023-01-[address] [facility] of 23:29:00 [place] [facility] soy [facility] POC GLUCOSE SCREEN 2023-01-[address] [facility] of 18:11:00 [place] [facility] POC GLUCOSE SCREEN 2023-01-[address] [facility] of 13:12:00 [place] [facility] BASIC METABOLIC PANEL, 2023-01-15 Ankit Locke [facility] rsity of CALCIUM TOTAL 07:23:00 [place] MD Carreon soy [facility] MAGNESIUM LEVEL 2023-01-15 Ankit Locke [facility] o f 07:23:00 [place] MD Carreon soy [facility] PHOSPHORUS LEVEL 2023-01-15 Ankit Locke [facility] of 07:23:00 [place] [facility] COMPLETE BLOOD COUNT W/ 2023-01-15 Ankit Locke [facility] ersity of DIFFERENTIAL 07:23:00 [place] MD Carreon soy [facility] GLUCOSE LEVEL 2023-01-15 Ankit Locke [facility] o f 07:23:00 [place] [facility] BLOOD UREA NITROGEN 2023-01-15 Ankit Locke [facility] ty of 07:23:00 [place] [facility] ELECTROLYTE PANEL 2023-01-15 Ankit Locke [facility] of 07:23:00 [place] [facility] SERUM CREATININE 2023-01-15 Ankit Locke [facility] of 07:23:00 [place] [facility] .GLOMERULAR FILTRATION RATE 2023-01-15 Ankit Locke [facility] of 07:23:00 [place] [facility] CALCIUM LEVEL TOTAL 2023-01-15 Ankit Locke [facility] ty of 07:23:00 [place] MD Liane olivier [facility] Results CBC 2023-01-15 Ankit Locke o f 07:23:00 [place] [facility] MANUAL DIFFERENTIAL 2023-01-15 Ankit Locke [facility] ty of 07:23:00 [place] [facility] POC GLUCOSE SCREEN 2023-01-[address] [facility] of 03:18:00 [place] [facility] soy [facility] POC GLUCOSE SCREEN 2023-01-[address] [facility] of 00:17:00 [place] [facility] POC GLUCOSE SCREEN 2023-01-[address] [facility] of 19:43:00 [place] [facility] POC GLUCOSE SCREEN 2023-01-[address] [facility] of 14:54:00 [place] [facility] Center POC GLUCOSE SCREEN 2023-01-[address] [facility] of 12:55:00 [place] [facility] BASIC METABOLIC PANEL, 2023-01-14 Ankit Locke [facility] rsity of CALCIUM TOTAL 08:31:00 [place] MD Carreon soy [facility] MAGNESIUM LEVEL 2023-01-14 Ankit Locke [facility] o f 08:31:00 [place] [facility] PHOSPHORUS LEVEL 2023-01-14 Ankit Locke [facility] of 08:31:00 [place] [facility] COMPLETE BLOOD COUNT W/ 2023-01-14 Ankit Locke [facility] ersity of DIFFERENTIAL 08:31:00 [place] [facility] GLUCOSE LEVEL 2023-01-14 Ankit Locke [facility] o f 08:31:00 [place] [facility] BLOOD UREA NITROGEN 2023-01-14 Ankit Locke [facility] ty of 08:31:00 [place] [facility] ELECTROLYTE PANEL 2023-01-14 Ankit Locke [facility] of 08:31:00 [place] [facility] SERUM CREATININE 2023-01-14 Ankit Locke [facility] of 08:31:00 [place] [facility] .GLOMERULAR FILTRATION RATE 2023-01-14 Ankit Locke [facility] of 08:31:00 [place] [facility] CALCIUM LEVEL TOTAL 2023-01-14 Ankit Locke [facility] ty of 08:31:00 [place] [facility] Results CBC 2023-01-14 Ankit Locke [facility] o f 08:31:00 [place] [facility] MANUAL DIFFERENTIAL 2023-01-14 Ankit Locke [facility] ty of 08:31:00 [place] [facility] POC GLUCOSE SCREEN 2023-01-[address] [facility] of 03:05:00 [place] [facility] POC GLUCOSE SCREEN 2023-01-[address] [facility] of 23:08:00 [place] [facility] POC GLUCOSE SCREEN 2023-01-[address] [facility] of 18:04:00 [place] [facility] POC GLUCOSE SCREEN 2023-01-[address] [facility] of 16:39:00 [place] [facility] POC GLUCOSE SCREEN 2023-01-[address] [facility] of 14:36:00 [place] [facility] POC GLUCOSE SCREEN 2023-01-[address] [facility] of 12:31:00 [place] [facility] BASIC METABOLIC PANEL, 2023-01-13 Ankit Locke [facility] rsity of CALCIUM TOTAL 07:55:00 [place] [facility] MAGNESIUM LEVEL 2023-01-13 Ankit Locke [facility] o f 07:55:00 [place] [facility] PHOSPHORUS LEVEL 2023-01-13 Ankit Locke [facility] of 07:55:00 [facility] COMPLETE BLOOD COUNT W/ 2023-01-13 Ankit Locke [facility] ersity of DIFFERENTIAL 07:55:00 [place] [facility] GLUCOSE LEVEL 2023-01-13 Irina [place] [facility] of 07:55:00 [place] [facility] BLOOD UREA NITROGEN 2023-01-13 Irina [place] [facility] of 07:55:00 [place] [facility] ELECTROLYTE PANEL 2023-01-13 Irina [place] [facility] of 07:55:00 [place] [facility] SERUM CREATININE 2023-01-13 Irina [place] [facility] of 07:55:00 [facility] .GLOMERULAR FILTRATION RATE 2023-01-13 Irina [place] Uni versity of 07:55:00 [place] MD Rob [facility] CALCIUM LEVEL TOTAL 2023-01-13 CelsoIrina olivier B[facility] of 07:55:00 [place] MD Liane olivier [facility] Results CBC 2023-01-13 Irina [place] [facility] of 07:55:00 [place] [facility] MANUAL DIFFERENTIAL 2023-01-13 CelsoIrina olivier B[facility] of 07:55:00 [place] [facility] POC GLUCOSE SCREEN 2023-01-13 [facility] of 03:31:00 [place] [facility] POC GLUCOSE SCREEN 2023-01-13 [facility] of 00:05:00 [place] [facility] Center POC GLUCOSE SCREEN 2023-01-12 [facility] of 18:51:00 [place] [facility] Center POC GLUCOSE SCREEN 2023-01-12 [facility] of 18:00:00 [place] [facility] POC GLUCOSE SCREEN 2023-01-12 Roberto Carlos Walsh B[facility] of 14:16:00 [place] [facility] POC GLUCOSE SCREEN 2023-01-12 Nico, [facility] of 12:55:00 [place] [facility] Center POC GLUCOSE SCREEN 2023-01-12 Roberto Carlos Walsh [facility] of 10:59:00 [place] [facility] BASIC METABOLIC PANEL, 2023-01-12 Ankit Lockee rsity of CALCIUM TOTAL 08:03:00 [place] [facility] MAGNESIUM LEVEL 2023-01-12 Ankit Locke [facility] o f 08:03:00 [place] [facility] PHOSPHORUS LEVEL 2023-01-12 Ankit Locke [facility] of 08:03:00 [place] [facility] COMPLETE BLOOD COUNT W/ 2023-01-12 Ankit Locke ersity of DIFFERENTIAL 08:03:00 [place] Rob [facility] GLUCOSE LEVEL 2023-01-12 Irina [place] [facility] of 08:03:00 [place] [facility] BLOOD UREA NITROGEN 2023-01-12 Irina [place] [facility] of 08:03:00 [place] [facility] ELECTROLYTE PANEL 2023-01-12 Irina [place] [facility] of 08:03:00 [place] [facility] SERUM CREATININE 2023-01-12 Irina Houston [facility] of 08:03:00 [place] [facility] .GLOMERULAR FILTRATION RATE 2023-01-12 Irina [place] Uni versity of 08:03:00 [place] [facility] CALCIUM LEVEL TOTAL 2023-01-12 Irina [place] [facility] of 08:03:00 [place] [facility] Results CBC 2023-01-12 Irina Houston [facility] 08:03:00 [place] [facility] MANUAL DIFFERENTIAL 2023-01-12 Irina [facility] 08:03:00 [facility] POC GLUCOSE SCREEN 2023-01-12 Roberto Carlos Walsh [facility] of 06:58:00 [facility] COVID-19 (SARS-COV-2) 2023-01-12 Nguyen Barcenas [facility] ity of ASYMPTOMATIC-LT 03:25:00 [facility] XR KNEE 1 OR 2 VW RIGHT 2023-01-12 Nguyen Barcenas rsity of 03:22:08 [facility] POC GLUCOSE SCREEN 2023-01-12 Roberto Carlos Walsh [facility] of 01:37:[address] [facility] [address] HEAD WO CONTRAST 2023-01-11 Nguyen Barcenas [facility] of 23:29:12 [facility] COMPLETE BLOOD COUNT W/ 2023-01-11 Nguyen Barcenase rsity of DIFFERENTIAL 21:11:00 [facility] COMPREHENSIVE METABOLIC PANEL 2023-01-11 Nguyen Barcenas [facility] 21:11:00 [facility] MAGNESIUM LEVEL 2023-01-11 Nguyen Barcenas [facility] 21:11:00 [facility] PHOSPHORUS LEVEL 2023-01-11 Nguyen Barcenas [facility] o f 21:11:00 [facility] PROTHROMBIN TIME 2023-01-11 Nguyen Barcenas [facility] o f 21:11:00 [place] [facility] APTT 2023-01-11 Nguyen Barcenas [facility] of 21:11:00 [facility] Results CBC 2023-01-11 Nguyen Barcenas [facility] of 21:11:00 [facility] MANUAL DIFFERENTIAL 2023-01-11 Nguyen Barcenas [facility] of 21:11:00 [facility] GLUCOSE LEVEL 2023-01-11 Nguyen Barcenas [facility] of 21:11:00 [facility] BLOOD UREA NITROGEN 2023-01-11 Nguyen Barcenas [facility] of 21:11:00 [facility] ELECTROLYTE PANEL 2023-01-11 Nguyen Barcenas [facility] of 21:11:00 [facility] SERUM CREATININE 2023-01-11 Nguyen Barcenas [facility] o f 21:11:00 [facility] .GLOMERULAR FILTRATION RATE 2023-01-11 Nguyen [facility] [employer] of 21:11:00 [facility] CALCIUM LEVEL TOTAL 2023-01-11 Nguyen [facility] of 21:11:00 [facility] ALBUMIN LEVEL 2023-01-11 Nguyen [facility] [employer] of 21:11:00 [facility] ALKALINE PHOSPHATASE 2023-01-11 Nguyen [facility] of 21:11:00 [place] [facility] ALANINE AMINOTRANSFERASE 2023-01-11 Nguyen [facility] ersity of 21:11:00 [facility] ASPARTATE AMINOTRANSFERASE 2023-01-11 Nguyen [facility] iversity of 21:11:00 [facility] TOTAL PROTEIN 2023-01-11 Nguyen [facility] of 21:11:00 [facility] FRACTIONATED BILIRUBIN 2023-01-11 Nguyen [facility] sity of 21:11:00 [place] [facility] COMPREHENSIVE METABOLIC PANEL 2023-01-07 Lorena Hdez [facility] of 14:28:23 [place] [facility] COMPLETE BLOOD COUNT W/ 2023-01-07 Lorena Hdez [facility] versity of DIFFERENTIAL 14:28:23 [place] [facility] MAGNESIUM LEVEL 2023-01-07 Lorena Hdez [facility] of 14:28:23 [place] [facility] PHOSPHORUS LEVEL 2023-01-07 [facility] of 14:28:23 [place] [facility] GLUCOSE LEVEL 2023-01-07 [facility] of 14:28:23 [place] [facility] BLOOD UREA NITROGEN 2023-01-07 Lorena Hdez [facility] ity of 14:28:23 [place] [facility] ELECTROLYTE PANEL 2023-01-07 Lorena Hdez Universit y of 14:28:23 [place] [facility] SERUM CREATININE 2023-01-07 [facility] of 14:28:23 [place] [facility] .GLOMERULAR FILTRATION RATE 2023-01-07 Lorena Hdez [facility] of 14:28:23 [place] [facility] CALCIUM LEVEL TOTAL 2023-01-07 Lorena Hdez [facility] ity of 14:28:23 [place] [facility] ALBUMIN LEVEL 2023-01-07 Lorena Hdez [facility] of 14:28:23 [facility] ALKALINE PHOSPHATASE 2023-01-07 [facility] of 14:28:23 [facility]re [facility]IN [facility] ALANINE AMINOTRANSFERASE 2023-01-07 Lorena Hdez iversity of 14:28:23 [place] [facility] ASPARTATE AMINOTRANSFERASE 2023-01-07 Lorena Hdez [facility] of 14:28:23 [place] [facility] TOTAL PROTEIN 2023-01-07 Lorena Hdez [facility] of 14:28:23 [place] [facility] FRACTIONATED BILIRUBIN 2023-01-07 Lorena Hdez [facility] ersity of 14:28:23 [place] [facility] Results CBC 2023-01-07 Simona Hdezfer KaylaCHRIST[facility] of 14:28:23 [place] [facility] MANUAL DIFFERENTIAL 2023-01-07 Lorena Hdez [facility] ity of 14:28:23 [place] [facility] COMPREHENSIVE METABOLIC PANEL 2023-01-01 Lorena Hdez [facility] of 14:26:43 [place] [facility] COMPLETE BLOOD COUNT W/ 2023-01-01 [facility] of DIFFERENTIAL 14:26:43 [place] [facility] MAGNESIUM LEVEL 2023-01-01 [facility] of 14:26:43 [place] [facility] PHOSPHORUS LEVEL 2023-01-01 [facility] of 14:26:43 [place] [facility] GLUCOSE LEVEL 2023-01-01 Simona Hdezfer KaylaCHRISTUS [facility] of 14:26:43 [place] [facility] BLOOD UREA NITROGEN 2023-01-01 Lorena Hdez [facility] ity of 14:26:43 [place] [facility] ELECTROLYTE PANEL 2023-01-01 Simona Hdezfer KaylaCommunity Hospitalit y of 14:26:43 [place] [facility] SERUM CREATININE 2023-01-01 [facility] of 14:26:43 [place] [facility] .GLOMERULAR FILTRATION RATE 2023-01-01 Lorena Hdez [facility] of 14:26:43 Bere [facility]reonUN[facility] Hospital CALCIUM LEVEL TOTAL 2023-01-01 Lorena Hdez [facility] ity of 14:26:43 [place] [facility] ALBUMIN LEVEL 2023-01-01 Simona Hdezfer KaylaCHRIST[facility] of 14:26:43 [place] [facility] ALKALINE PHOSPHATASE 2023-01-01 L[facility]dez [facility] sity of 14:26:43 Bere GRIFFIN [facility] ALANINE AMINOTRANSFERASE 2023-01-01 Lorena Hdez Un iversity of 14:26:43 [place] [facility] ASPARTATE AMINOTRANSFERASE 2023-01-01 Hdez, [facility]naUNC [facility] of 14:26:43 [place] [facility] TOTAL PROTEIN 2023-01-01 Lorena Hdez [facility] of 14:26:43 [place] [facility] FRACTIONATED BILIRUBIN 2023-01-01 [facility] ersity of 14:26:43 [place] [facility] Results CBC 2023-01-01 [facility] of 14:26:43 [place] [facility] MANUAL DIFFERENTIAL 2023-01-01 Simona Hdezfer KaylaCommunity Hospital ity of 14:26:43 [place] [facility] [place] VISUAL FIELD, 2022-12-29 Suzanne Mcgrath ity of INTERMEDIATE - OU - BOTH EYES 16:51:16 Dereck astudillo MD [facility] OCT, OPTIC NERVE - OU - BOTH 2022-12-29 Suzanne Mcgrath niversity of EYES 16:43:49 [place] [facility] OCT, RETINA - OU - BOTH EYES 2022-12-29 Suzanne Mcgrath niversity of 16:43:47 [place] [facility] COMPREHENSIVE METABOLIC PANEL 2022-12-24 Lorena Hdez [facility] of 15:16:00 [place] [facility] COMPLETE BLOOD COUNT W/ 2022-12-24 [facility] versity of DIFFERENTIAL 15:16:00 [place] [facility] MAGNESIUM LEVEL 2022-12-24 Simona HdezUNC [facility] of 15:16:00 [place] [facility] PHOSPHORUS LEVEL 2022-12-24 Simona HdezUNC Health [facility]heastern of 15:16:00 [place] [facility] GLUCOSE LEVEL 2022-12-24 Simona HdezUNC [facility] of 15:16:00 [place] [facility] BLOOD UREA NITROGEN 2022-12-24 L[facility]na [facility]dezCommunity [facility] ity of 15:16:00 [place] [facility] ELECTROLYTE PANEL 2022-12-24 Simona Hdezfer KaylaCommunity Hospitalit y of 15:16:00 [place] [facility] SERUM CREATININE 2022-12-24 [facility] of 15:16:00 [place] [facility] .GLOMERULAR FILTRATION RATE 2022-12-24 Simona HdezUNC [facility] of 15:16:00 [place] [facility] CALCIUM LEVEL TOTAL 2022-12-24 [facility] of 15:16:00 [place] [facility] ALBUMIN LEVEL 2022-12-24 [facility] L[facility]naUNC Health Sout[facility] of 15:16:00 [place] [facility] ALKALINE PHOSPHATASE 2022-12-24 [facility] sity of 15:16:00 [place] [facility] ALANINE AMINOTRANSFERASE 2022-12-24 Hdez Lorena Kayla Un iversity of 15:16:00 [place] [facility] ASPARTATE AMINOTRANSFERASE 2022-12-24 Lemuel LorenaUNC Health Southeastern of 15:16:00 [place] [facility] TOTAL PROTEIN 2022-12-24 Simona HdezUNC [facility] of 15:16:00 [place] [facility] FRACTIONATED BILIRUBIN 2022-12-24 [facility] ers[facility] of 15:16:00 [place] [facility] Results CBC 2022-12-24 Lemuel [facility] of 15:16:00 [place] [facility] MANUAL DIFFERENTIAL 2022-12-24 Simona [facility]dezOceans [facility] ity of 15:16:00 [facility] COVID-19 (SARS-COV-2) 2022-12-23 Winter Luu [facility] sity of PCR-ASYMPTOMATIC MC 18:01:00 [place] [facility] POC GLUCOSE SCREEN 2022-12-16 Orlin [facility] of 00:07:00 [place] [facility] POC GLUCOSE SCREEN 2022-12-15 [facility] of 18:52:00 [place] [facility] OCT, OPTIC NERVE - OU - BOTH 2022-12-15 [facility] versity of EYES 16:37:29 [place] [facility] OCT, RETINA - OU - BOTH EYES 2022-12-15 Daivs, Fareed Uni versity of 16:37:23 [place] MD Rob [facility] FUNDUS PHOTOS - OU - BOTH 2022-12-15 Fareed Davis sity of EYES 16:37:12 [place] [facility] 3D DENTAL IMAGING (ICAT) 2022-12-15 Abhinav Solizurav [facility] ity of 14:42:55 [place] [facility] POC GLUCOSE SCREEN 2022-12-15 Ordaz, [facility] of 13:19:00 [place] [facility] POC GLUCOSE SCREEN 2022-12-15 [facility] of 12:12:00 [place] [facility] BASIC METABOLIC PANEL, 2022-12-15 Mana Powers [facility] CALCIUM TOTAL 09:44:00 [place] [facility] MAGNESIUM LEVEL 2022-12-15 Mana Powers [facility] of 09:44:00 [place] [facility] PHOSPHORUS LEVEL 2022-12-15 Mana Powers [facility] of 09:44:00 [place] [facility] COMPLETE BLOOD COUNT W/ 2022-12-15 Mana Powers ty of DIFFERENTIAL 09:44:00 [place] [facility] GLUCOSE LEVEL 2022-12-15 Mana Powers [facility] of 09:44:00 [place] [facility] BLOOD UREA NITROGEN 2022-12-15 Mana Powers [facility] f 09:44:00 [place] [facility] ELECTROLYTE PANEL 2022-12-15 Mana Powers [facility] of 09:44:00 [place] [facility] SERUM CREATININE 2022-12-15 Mana Powers [facility] of 09:44:00 [place] [facility] .GLOMERULAR FILTRATION RATE 2022-12-15 Mana Powers [facility] ersity of 09:44:00 [place] [facility] CALCIUM LEVEL TOTAL 2022-12-15 Mana Powers o f 09:44:00 [place] [facility] Results CBC 2022-12-15 Mana Powers [facility] of 09:44:00 [place] [facility] MANUAL DIFFERENTIAL 2022-12-15 Mana Powers o f 09:44:00 [place] [facility] POC GLUCOSE SCREEN 2022-12-15 ChristinaTrista BoyleCarolinaEast Medical Center of 08:28:00 [place] MD Liane olivier [facility] POC GLUCOSE SCREEN 2022-12-15 ChristinaTrista BoyleCarolinaEast Medical Center of 04:04:00 [place] MD Liane olivier [facility] POC GLUCOSE SCREEN 2022-12-14 ChristinaTrista BoyleCarolinaEast Medical Center of 23:26:00 [place] MD Liane olivier [facility] POC GLUCOSE SCREEN 2022-12-14 ChristinaMontana [facility] of 22:14:00 [place] MD Liane olivier [facility] [place] MODIFIED BARIUM SWALLOW W 2022-12-14 [facility] of SPEECH 20:37:56 [place] MD Liane olivier [facility] POC GLUCOSE SCREEN 2022-12-14 ChristinaMontana [facility] of 18:08:00 [place] [facility] GENERAL LABORATORY ADD ON 2022-12-14 ChristinaTravis Boyle [facility] versity of TEST 14:03:00 [place] MD Liane olivier [facility] POC GLUCOSE SCREEN 2022-12-14 ChristinaMontana [facility] of 13:25:00 [place] MD Liane olivier [facility] POC GLUCOSE SCREEN 2022-12-14 Derrick Gill [facility] ty of 11:55:00 [place] [facility] BASIC METABOLIC PANEL, 2022-12-14 Mana Powersit y of CALCIUM TOTAL 10:46:00 [place] MD Liane olivier [facility] MAGNESIUM LEVEL 2022-12-14 Mana Powers [facility] of 10:46:00 [place] MD Liane olivier [facility] PHOSPHORUS LEVEL 2022-12-14 Mana Powers [facility] of 10:46:00 [place] [facility] COMPLETE BLOOD COUNT W/ 2022-12-14 Mana Powers ty of DIFFERENTIAL 10:46:00 [place] MD Rob [facility] GLUCOSE LEVEL 2022-12-14 Mana Powers [facility] of 10:46:00 [place] [facility] BLOOD UREA NITROGEN 2022-12-14 Mana Powers [facility] f 10:46:00 [place] [facility] ELECTROLYTE PANEL 2022-12-14 [facility] of 10:46:00 [place] MD Liane olivier [facility] SERUM CREATININE 2022-12-14 [facility] of 10:46:00 [place] [facility] .GLOMERULAR FILTRATION RATE 2022-12-14 [facility] ersity of 10:46:00 [place] MD Liane olivier [facility] CALCIUM LEVEL TOTAL 2022-12-14 [facility] o f 10:46:00 [place] MD Liane olivier [facility] Results CBC 2022-12-14 [facility] of 10:46:00 [place] MD Liane olivier [facility] MANUAL DIFFERENTIAL 2022-12-14 [facility] o f 10:46:00 [place] MD Liane olivier [facility] ALBUMIN LEVEL 2022-12-14 ChristinaTrista BoyleCarolinaEast Medical Center of 10:46:00 [place] MD Liane olivier [facility] ALKALINE PHOSPHATASE 2022-12-14 ChristinaMontana [facility] of 10:46:00 [place] [facility] ALANINE AMINOTRANSFERASE 2022-12-14 [facility] ersity of 10:46:00 [place] [facility] ASPARTATE AMINOTRANSFERASE 2022-12-14 ChristinaTrista BoyleErlanger [facility] iversity of 10:46:00 [place] MD Liane olivier [facility] TOTAL PROTEIN 2022-12-14 Jessica [facility] of 10:46:00 [place] MD Liane olivier [facility] FRACTIONATED BILIRUBIN 2022-12-14 Trista LopezRandolph Healther sity of 10:46:00 [place] MD Liane [facility]ivier [facility] POC GLUCOSE SCREEN 2022-12-14 Trista LopezCarolinaEast Medical Center of 07:36:00 [place] Liane [facility]ivier [facility] POC GLUCOSE SCREEN 2022-12-14 Jessica [facility] of 03:56:00 [place] MD Liane olivier [facility] POC GLUCOSE SCREEN 2022-12-14 Trista LopezCarolinaEast Medical Center of 00:31:00 [place] MD Liane olivier [facility] POC GLUCOSE SCREEN 2022-12-13 Trista LopezCarolinaEast Medical Center of 19:24:00 [place] MD Rob [facility] POC GLUCOSE SCREEN 2022-12-13 ChristinaMontana [facility] of 14:02:00 [place] MD Liane olivier [facility] POC GLUCOSE SCREEN 2022-12-13 ChristinaMontana [facility] of 11:58:00 [place] [facility] POC GLUCOSE SCREEN 2022-12-13 ChristinaMontana [facility] of 09:24:00 [place] [facility] BASIC METABOLIC PANEL, 2022-12-13 Mana Powers [facility] of CALCIUM TOTAL 09:12:00 [place] [facility] MAGNESIUM LEVEL 2022-12-13 Sh[facility] of 09:12:00 [place] [facility] PHOSPHORUS LEVEL 2022-12-13 Mana Powers [facility] of 09:12:00 [place] [facility] COMPLETE BLOOD COUNT W/ 2022-12-13 Mana Powers [facility] ty of DIFFERENTIAL 09:12:00 [place] [facility] GLUCOSE LEVEL 2022-12-13 Mana Powers [facility] of 09:12:00 [place] [facility] BLOOD UREA NITROGEN 2022-12-13 [facility] o f 09:12:00 [place] [facility] ELECTROLYTE PANEL 2022-12-13 Mana Powers [facility] of 09:12:00 [place] [facility] SERUM CREATININE 2022-12-13 Mana Powers [facility] of 09:12:00 [place] [facility] .GLOMERULAR FILTRATION RATE 2022-12-13 Mana Powers [facility] ersity of 09:12:00 [place] [facility] CALCIUM LEVEL TOTAL 2022-12-13 [facility]ayeB[facility] o f 09:12:00 [place] [facility] Results CBC 2022-12-13 Mana Powers [facility] of 09:12:00 [place] [facility] MANUAL DIFFERENTIAL 2022-12-13 Mana Powers [facility] f 09:12:00 [place] [facility] POC GLUCOSE SCREEN 2022-12-13 Coreyputnam county memorial hospitalMontana [facility] of 03:43:00 [place] [facility] POC GLUCOSE SCREEN 2022-12-13 Koom-Dadzie, [facility] of 00:16:00 [place] [facility] POC GLUCOSE SCREEN 2022-12-12 ChristinaMontana [facility] of 18:52:00 [place] [facility] POC GLUCOSE SCREEN 2022-12-12 ChristinaTrista BoyleCarolinaEast Medical Center of 13:47:00 [place] [facility] POC GLUCOSE SCREEN 2022-12-12 ChristinaMontana [facility] of 11:52:00 [place] [facility] BASIC METABOLIC PANEL, 2022-12-12 Mana Powers [facility] of CALCIUM TOTAL 10:30:00 [place] [facility] MAGNESIUM LEVEL 2022-12-12 Mana Powers [facility] of 10:30:00 [place] [facility] PHOSPHORUS LEVEL 2022-12-12 Mana Powers [facility] of 10:30:00 [place] [facility] COMPLETE BLOOD COUNT W/ 2022-12-12 Mana Powers ty of DIFFERENTIAL 10:30:00 [place] [facility] GLUCOSE LEVEL 2022-12-12 Mana Powers [facility] of 10:30:00 [place] [facility] BLOOD UREA NITROGEN 2022-12-12 Mana Powers [facility] f 10:30:00 [place] [facility] ELECTROLYTE PANEL 2022-12-12 Mana Powers [facility] of 10:30:00 [place] [facility] SERUM CREATININE 2022-12-12 Mana Powesr [facility] of 10:30:00 [place] [facility] .GLOMERULAR FILTRATION RATE 2022-12-12 Mana Powers [facility] ersity of 10:30:00 [place] [facility] CALCIUM LEVEL TOTAL 2022-12-12 Mana Powers [facility] f 10:30:00 [place] [facility] Results CBC 2022-12-12 Mana Powers [facility] of 10:30:00 [place] [facility] MANUAL DIFFERENTIAL 2022-12-12 Mana Powers o f 10:30:00 [place] [facility] POC GLUCOSE SCREEN 2022-12-12 Travis Lopez [facility] of 08:06:00 [place] Liane olivier [facility] POC GLUCOSE SCREEN 2022-12-12 [facility]yUCSF Medical Centerujles [facility] of 04:01:00 [place] MD Liane olivier [facility] LACTIC ACID, VENOUS 2022-12-12 Coreyputnam county memorial hospitalMontana [facility] y of 03:50:00 [place] [facility] VENOUS BLOOD GAS 2022-12-12 [facility] o f 00:21:00 [place] MD Liane olivier [facility] LIPASE LEVEL 2022-12-12 [facility] of 00:21:00 [place] [facility] POC GLUCOSE SCREEN 2022-12-12 [facility] of 00:10:00 [place] MD Liane olivier [facility] GENERAL LABORATORY ADD ON 2022-12-11 ChristinaTrista Boyleformerly [facility] versity of TEST 23:39:00 [place] MD Rob [facility] KETONE BODIES QUALITATIVE 2022-12-11 Waleska Salinas Unive rsity of 23:19:00 [place] MD Liane olivier [facility] POC GLUCOSE SCREEN 2022-12-11 [facility] of 22:51:00 [place] MD Liane olivier [facility] LACTIC ACID, VENOUS 2022-12-11 [facility]ricLe[facility] y of 22:33:00 [place] MD Liane olivier [facility] ELECTROLYTE PANEL 2022-12-11 Waleska Salinas [facility] of 22:33:00 [place] MD Liane olivier [facility] LIPASE LEVEL 2022-12-11 Waleska Salinas [facility] of 22:33:00 [place] MD Liane olivier [facility] POC CRITICAL 2022-12-11 CoreyUCSF Medical CenterpatricOSS Health of 21:34:00 [place] [facility] POC GLUCOSE SCREEN 2022-12-11 Coreyputnam county memorial hospitalMontanaFormerly [facility] of 21:34:00 [place] MD Liane olivier [facility] POC CRITICAL 2022-12-11 Corey-[place] [facility] of 20:33:00 [place] MD Liane olivier [facility] POC GLUCOSE SCREEN 2022-12-11 Corey-[place] [facility] of 20:33:00 [place] MD [facility] POC GLUCOSE SCREEN 2022-12-11 ChristinaTravis Boyle [facility] of 18:35:00 [place] [facility] POC GLUCOSE SCREEN 2022-12-11 Travis Lopez [facility] of 14:14:00 [place] [facility] LACTIC ACID, VENOUS 2022-12-11 Shaye PowersB[facility] Scott & [facility] o f 10:37:59 [place] [facility] BASIC METABOLIC PANEL, 2022-12-11 Mana Powers [facility] y of CALCIUM TOTAL 10:30:00 [place] [facility] MAGNESIUM LEVEL 2022-12-11 Mana Powers [facility] of 10:30:00 [place] [facility] PHOSPHORUS LEVEL 2022-12-11 Mana Powers [facility] of 10:30:00 [place] [facility] COMPLETE BLOOD COUNT W/ 2022-12-11 Mana Powers [facility] ty of DIFFERENTIAL 10:30:00 [place] [facility] GLUCOSE LEVEL 2022-12-11 Irina Houston [facility] of 10:30:00 [place] [facility] BLOOD UREA NITROGEN 2022-12-11 Irina Houston [facility] of 10:30:00 [place] [facility] ELECTROLYTE PANEL 2022-12-11 Irina Houston [facility] of 10:30:00 [place] [facility] SERUM CREATININE 2022-12-11 Irina Houston [facility] of 10:30:00 [place] [facility] .GLOMERULAR FILTRATION RATE 2022-12-11 Irina Houston Uni versity of 10:30:00 [place] [facility] CALCIUM LEVEL TOTAL 2022-12-11 Irina [facility] of 10:30:00 [place] [facility] Results CBC 2022-12-11 Irina Houston [facility] of 10:30:00 [place] [facility] MANUAL DIFFERENTIAL 2022-12-11 Irina Houston [facility] of 10:30:00 [place] [facility] POC GLUCOSE SCREEN 2022-12-11 Eun Hancock of 07:20:00 Jaycee [place] [facility] POC GLUCOSE SCREEN 2022-12-11 [facility] of 04:00:00 Jaycee [place] Liane olivier [facility] POC GLUCOSE SCREEN 2022-12-11 [facility] of 00:29:00 Jaycee [place] [facility] POC GLUCOSE SCREEN 2022-12-10 [facility] of 23:20:00 ArlenJasmina [place] [facility] HEAD WO CONTRAST 2022-12-10 [facility] o f 21:21:00 ArlenJasmina [place] [facility]chr[facility] soy [facility] POC GLUCOSE SCREEN 2022-12-10 [facility] of 19:45:00 ArlenJasmina [place] [facility] soy [facility] [facility] POC GLUCOSE SCREEN 2022-12-10 [facility] f 17:35:00 [place] Liane olivier [facility] POC GLUCOSE SCREEN 2022-12-10 Mer Milian B[facility] of 13:30:00 [place] [facility] URINE CULTURE 2022-12-10 Tammy Mike [facility] of 12:13:00 [place] [facility] URINALYSIS WITH MICROSCOPIC 2022-12-10 Tammy Mike [facility] ersity of IF INDICATED 12:13:00 [place] [facility] BASIC METABOLIC PANEL, 2022-12-10 Mana Powers y of CALCIUM TOTAL 11:13:00 [place] [facility] MAGNESIUM LEVEL 2022-12-10 Mana Powers [facility] of 11:13:00 [place] [facility] PHOSPHORUS LEVEL 2022-12-10 Mana Powers [facility] of 11:13:00 [place] [facility] COMPLETE BLOOD COUNT W/ 2022-12-10 Mana Powers ty of DIFFERENTIAL 11:13:00 [place] MD Rob [facility] HEMOGLOBIN A1C 2022-12-10 Irina Houston B[facility] of 11:13:00 [place] MD Rob [facility] GLUCOSE LEVEL 2022-12-10 Irina Houston [facility] of 11:13:00 [place] [facility] BLOOD UREA NITROGEN 2022-12-10 Irina Houston [facility] of 11:13:00 [place] [facility] ELECTROLYTE PANEL 2022-12-10 Irina Houston [facility] of 11:13:00 [place] [facility] SERUM CREATININE 2022-12-10 CelsoIrina olivier Benge of 11:13:00 [place] [facility] .GLOMERULAR FILTRATION RATE 2022-12-10 Irina Houston Uni versity of 11:13:00 [place] [facility] CALCIUM LEVEL TOTAL 2022-12-10 Irina Houston [facility] of 11:13:00 [place] [facility] Results CBC 2022-12-10 Irina Houston [facility] of 11:13:00 [place] [facility] MANUAL DIFFERENTIAL 2022-12-10 Irina Houston [facility] of 11:13:00 [place] [facility] POC GLUCOSE SCREEN 2022-12-10 Mer Milian B[facility] of 07:38:00 [place] [facility] POC GLUCOSE SCREEN 2022-12-10 Mer Milian B[facility] of 05:18:00 [place] [facility] POC VENOUS BLOOD GAS + 2022-12-10 Roberto Carlos Walsh [facility] y of LACTATE 03:36:00 [facility] COVID-19 (SARS-COV-2) 2022-12-10 Roberto Carlos Walsh Benge of ASYMPTOMATIC-LT 00:01:00 [place] [facility] AMMONIA LEVEL 2022-12-10 Tammy Mike Benge of 00:01:00 [place] [facility] COMPLETE BLOOD COUNT W/ 2022-12-10 Tammy Mike ty of DIFFERENTIAL 00:01:00 [place] [facility] COMPREHENSIVE METABOLIC PANEL 2022-12-10 Tammy Mike iversity of 00:01:00 [place] [facility] MAGNESIUM LEVEL 2022-12-10 Tammy Mike [facility] of 00:01:00 [place] [facility] PHOSPHORUS LEVEL 2022-12-10 Tammy Mike [facility] of 00:01:00 [place] [facility] PROTHROMBIN TIME 2022-12-10 Tammy Mike B[facility] of 00:01:00 [place] [facility] APTT 2022-12-10 [facility] of 00:01:00 [place] [facility] LACTATE DEHYDROGENASE 2022-12-10 [facility] of 00:01:00 [place] [facility] Results CBC 2022-12-10 [facility] of 00:01:00 [place] [facility] MANUAL DIFFERENTIAL 2022-12-10 [facility] o f 00:01:00 [place] [facility] GLUCOSE LEVEL 2022-12-10 [facility] of 00:01:00 [place] [facility] BLOOD UREA NITROGEN 2022-12-10 [facility] o f 00:01:00 [place] [facility] ELECTROLYTE PANEL 2022-12-10 [facility] of 00:01:00 [place] [facility] SERUM CREATININE 2022-12-10 [facility] of 00:01:00 [place] [facility] .GLOMERULAR FILTRATION RATE 2022-12-10 [facility] ersity of 00:01:00 [place] [facility] CALCIUM LEVEL TOTAL 2022-12-10 [facility] o f 00:01:00 [place] [facility] ALBUMIN LEVEL 2022-12-10 [facility] of 00:01:00 [place] [facility] ALKALINE PHOSPHATASE 2022-12-10 [facility] of 00:01:00 [place] [facility] ALANINE AMINOTRANSFERASE 2022-12-10 [facility] ity of 00:01:00 [place] [facility] ASPARTATE AMINOTRANSFERASE 2022-12-10 [facility] 00:01:00 [place] [facility] TOTAL PROTEIN 2022-12-10 [facility] of 00:01:00 [place] [facility] FRACTIONATED BILIRUBIN 2022-12-10 [facility] 00:01[facility]00 [place] [facility] HP MDA CHRISTINE MUTATION 2022-12-04 Lorena Hdez Uni versity of ANALYSIS PRECISION PANEL 16:56:00 [facility] HP SOLID TUMOR GENOMIC 2022-12-04 Lorena Hdez U niversity of ASSAY FUSIONS 2018 16:56:00 Bere Portillo rson INTERPRETATION AND REPORT Cancer [place] HP MOLECULAR BLOOD COLLECTION 2022-12-04 Lorena Hdez B[facility] of 16:56:00 [place] MD Rob [facility] MRI SKULL BASE WITH AND 2022-11-30 Lorena Hdez Uni versity of WITHOUT CONTRAST 17:12:54 Bere Carreon [facility] PETCT CONTRAST ENHANCED 2022-11-27 [facility] ty of INITIAL TREATMENT STRATEGY 21:57:06 Ashleigh [place] [facility] POC GLUCOSE SCREEN 2022-11-27 [facility] of 19:06:00 Ashleigh [place] [facility] POC GLUCOSE SCREEN 2022-11-27 [facility] of 18:29:00 Ashleigh [place] [facility] NGS BLOOD CONTROL 2022-11-26 Lorena Hdez [facility] sity of 19:07:00 [place] MD Rob [facility] COMPLETE BLOOD COUNT W/ 2022-11-26 Lorena Hdez Uni versity of DIFFERENTIAL 19:07:00 [place] [facility] COMPREHENSIVE METABOLIC PANEL 2022-11-26 Lorena Hdez [facility] of 19:07:00 [place] MD Liane olivier [facility] FREE THYROXINE 2022-11-26 Lorena Hdez [facility] of 19:07:00 [place] MD Liane olivier [facility] LACTATE DEHYDROGENASE 2022-11-26 [facility]dez [facility] rs[facility] of 19:07:00 [place] MD Liane olivier [facility] MAGNESIUM LEVEL 2022-11-26 [facility] of 19:07:00 [place] MD Liane olivier [facility] PHOSPHORUS LEVEL 2022-11-26 Lorena Hdez [facility] of 19:07:00 [place] [facility] URIC ACID 2022-11-26 Lorena Hdez [facility] of 19:07:00 [place] [facility] VITAMIN D 25 HYDROXY LEVEL 2022-11-26 Lorena Hdez [facility] of 19:07:00 [place] MD Liane olivier [facility] THYROID STIMULATING HORMONE 2022-11-26 [facility] 19:07:00 [place] Liane olivier [facility] APTT 2022-11-26 [facility] of 19:07:00 [place] Liane olivier [facility] PROTHROMBIN TIME 2022-11-26 Lemuel [facility] of 19:07:00 [place] MD Liane olivier [facility] Results CBC 2022-11-26 [facility] of 19:07:00 [place] MD Liane olivier [facility] MANUAL DIFFERENTIAL 2022-11-26 [facility] ity of 19:07:00 [place] MD Liane olivier [facility] GLUCOSE LEVEL 2022-11-26 Hdez [facility] of 19:07:00 [place] MD Liane olivier [facility] BLOOD UREA NITROGEN 2022-11-26 [facility] of 19:07:00 [place] MD Liane olivier [facility] ELECTROLYTE PANEL 2022-11-26 [facility]dez [facility] of 19:07:00 [place] [facility] 2022-11-26 [facility] of 19:07:00 [place] [facility] .GLOMERULAR FILTRATION RATE 2022-11-26 Sim[facility] of 19:07:00 [place] MD Carreon soy [facility] CALCIUM LEVEL TOTAL 2022-11-26 Simona [facility] ity of 19:07:00 [place] Liane olivier [facility] ALBUMIN LEVEL 2022-11-26 Lemuel [facility] of 19:07:00 [place] [facility] ALKALINE PHOSPHATASE 2022-11-26 Lemuel [facility] sity of 19:07:00 [place] Liane olivier [facility] ALANINE AMINOTRANSFERASE 2022-11-26 Simona Hdezfer Kayla Un iversity of 19:07:00 [place] [facility] ASPARTATE AMINOTRANSFERASE 2022-11-26 [facility] of 19:07:00 [place] [facility] TOTAL PROTEIN 2022-11-26 Hdez LorenaReplaced by [facility] of 19:07:00 [place] MD Liane olivier [facility] FRACTIONATED BILIRUBIN 2022-11-26 [facility] ersity of 19:07:00 [place] [facility] AP NTRK1 FUSION ANALYSIS 2022-11-26 HdezYeniLorenaReplaced by [facility] of MATERIAL REQUEST 18:43:02 [place] MD Carreon [facility] AP ALK MUTATION ANALAYSIS 2022-11-26 [facility] MATERIAL REQUEST 18:43:02 [place] MD Carreon [facility] AP NTRK3 FUSION ANALYSIS 2022-11-26 [facility] of MATERIAL REQUEST 18:43:02 [place] Lauri [facility] AP EGFR MUTATION MATERIAL 2022-11-26 [facility] L[facility]naFormerly [facility] of REQUEST 18:43:02 [place] [facility] AP ERBB2 MUTATION 2022-11-26 [facility] sity of ANALAYSIS MATERIAL REQUEST 18:43:02 [place] [facility] AP MTOR MATERIAL REQUEST 2022-11-26 [facility] of 18:43:02 [place] [facility] AP PTEN MUTATION MATERIAL 2022-11-26 [facility] of REQUEST 18:43:02 [place] [facility] AP IHC PD-L1 MATERIAL REQUEST 2022-11-26 [facility] of 18:43:02 [place] [facility] AP IHC HER2/MELISSA MATERIAL 2022-11-26 [facility] iversity of REQUEST 18:43:02 [place] [facility] HEPATITIS C VIRUS ANTIBODY 2022-11-17 Red Posada U niversity of 18:11:00 [place] [facility] COMPREHENSIVE METABOLIC PANEL 2022-11-17 Red Posada Benge of 18:11:00 [place] [facility] COMPLETE BLOOD COUNT W/ 2022-11-17 Red Posada [facility] ersity of DIFFERENTIAL 18:11:00 [place] MD Rob [facility] APTT 2022-11-17 Red Posada Benge o f 18:11:00 [place] [facility] PROTHROMBIN TIME 2022-11-17 Red Posada [facility] of 18:11:00 [place] [facility] CORTISOL 2022-11-17 Antonella [facility] o f 18:11:00 [place] [facility] ADRENOCORTICOTROPIC HORMONE 2022-11-17 Red Posada [facility] of 18:11:00 [place] [facility] ESTRADIOL LEVEL 2022-11-17 Antonella [facility] o f 18:11:00 [place] [facility] TESTOSTERONE LEVEL 2022-11-17 [facility] 18:11[facility]00 [place] [facility] FOLLICLE STIMULATING HORMONE 2022-11-17 Red Posada [facility] of LEVEL 18:11:00 [place] [facility] LUTEINIZING HORMONE 2022-11-17 Red [facility] ty of 18:11:00 [place] [facility] THYROID STIMULATING HORMONE 2022-11-17 Red Posada [facility] of 18:11:00 [place] [facility] FREE THYROXINE 2022-11-17 Antonella [facility] o f 18:11:00 [place] [facility] TOTAL T3 2022-11-17 Antonella [facility] o f 18:11:00 [place] [facility] INSULIN LIKE GROWTH FACTOR 1 2022-11-17 Red Posada [facility] of 18:11:00 [place] [facility] PROLACTIN 2022-11-17 Antonella [facility] o f 18:11:00 [place] [facility] GLUCOSE LEVEL 2022-11-17 Antonella [facility] o f 18:11:00 [place] [facility] BLOOD UREA NITROGEN 2022-11-17 Red [facility] of 18:11:00 [place] [facility] ELECTROLYTE PANEL 2022-11-17 Red Posada [facility] of 18:11:00 [place] [facility] SERUM CREATININE 2022-11-17 Red Posada [facility] of 18:11:00 [place] [facility] .GLOMERULAR FILTRATION RATE 2022-11-17 Red Posada Benge of 18:11:00 [place] [facility] CALCIUM LEVEL TOTAL 2022-11-17 Red Posada [facility] 18:11:00 [place] [facility] ALBUMIN LEVEL 2022-11-17 Red Posada Benge o f 18:11:00 [place] [facility] ALKALINE PHOSPHATASE 2022-11-17 Red Posada Univers ity of 18:11:00 [place] [facility] ALANINE AMINOTRANSFERASE 2022-11-17 Red Posada Uni versity of 18:11:00 [place] [facility] ASPARTATE AMINOTRANSFERASE 2022-11-17 Red Posada U niversity of 18:11:00 [place] [facility] TOTAL PROTEIN 2022-11-17 Red Posada Benge o f 18:11:00 [place] [facility] FRACTIONATED BILIRUBIN 2022-11-17 Red Posada Unive rsity of 18:11:00 [place] [facility] Results CBC 2022-11-17 Red Posada Benge o f 18:11:00 [place] [facility] MANUAL DIFFERENTIAL 2022-11-17 Red Posada [facility] of 18:11:00 [facility] PATHOLOGY OUTSIDE 2022-10-16 Alexa Alvarez Benge of INTERPRETATION 00:00:00 [place] [facility] FLU VACC (), 6 MO-64 2022-09-21 Nereida Sheriff Un iversity of YRS, .5ML, IM, QUAD 15:41:00 [place] [facility] (FLUCELVAX) [facility] CT HEAD WO CONTRAST 2022-08-28 [facility] o f 14:23:13 [facility] POCT MOLECULAR FLU 2022-08-25 [facility] of 15:55:00 [facility] 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 2022-07-28 Angelica Mathis-Flakita [facility] KUB 11:59:00 [facility] POCT-GLUCOSE METER 2022-01-[address] [facility] [facility] 13:43:00 [facility] REPORT OF PROCEDURE - 2022-01-09 Dewayne Wise [facility] ENDOSCOPY URL 12:37:11 [facility] REPORT OF PROCEDURE - 2022-01-09 Dewayne Wise [facility] ENDOS[facility] URL 12:36:24 [facility] TISSUE EXAM 2022-01-[address] 11:31:00 [facility] ESOPHAGEAL BALLOON 2022-01-09 Billie, Dewayne Stanley [facility] PROVOCATION STUDY 10:53:00 [facility] COLONOSCOPY, WITH POLYPECTOMY 2022-01-09 Billie, Dewayne champion [facility] 10:53:00 [facility] ENDOSCOPY, UPPER GI TRACT, 2022-01-09 [address]ay[address]aden [facility] WITH BIOPSY 10:53:00 [facility] POCT-GLUCOSE METER 2022-01-09 Billie [address]ne Stanley [facility] 09:59:00 [facility] SARS-COV2/RT-PCR (HS & REF 2022-01-09 Billie Dewayne Precious álvarez [facility] LABS) 07:55:00 [facility] MANOMETRY, ANORECTAL 2021-12-04 Billie, Dewayne Stanley [facility] 09:24:00 [facility] Sleeve resection of stomach 2017-09-01 Dillon Seay 00:00:00 Laparoscopic adjustable 2013-11-01 [facility] gastric banding<sup>1</sup> 06:00:00 Removal of gastric band 2013-11-01 [facility] 00:00:00 Abdominal hysterectomy 2011-11-01 [facility] 00:00:00 Laparoscopic adjustable 2010-11-01 [facility] gastric banding 00:00:00 Appendectomy 2009-11-01 [facility] 00:00:00 Cholecystectomy 2009-11-01 [facility] 00:00:00 Knee joint [facility] 2006[facility] Shoulder joint operations 2006-11-01 Maynor Tsang 06:00:00 section 1984-11-01 Yossi olivier 00:00:00 Knee Surgery [facility] Procedure on Shoulder [facility] Fa davida Practice Maintenance of Gastric [facility] Gallbladder Surgery [facility] Fami glen Practice Appendectomy [facility] Plan of Care Planned Activity Planned Date Details Comments Source Future Scheduled 2032-01-[address] [facility] colon (procedure) [code = 499359717] Future Scheduled 2032-01-[address] [facility] 00:00[facility]00 [facility] colon (procedure) [code = 389920678] Future Scheduled 2032-01-[address] [facility] 00:00:00 [facility] colon (procedure) [code = 902942395] Future Scheduled 2032-01-[address] [facility] 00:00:00 [facility] colon (procedure) [code = 312987908] Future Scheduled 2032-01-[address] [facility] 00:00:00 [facility] colon (procedure) [code = 833346330] Future Scheduled 2032-01-[address] [facility] 00:00:00 [facility] colon (procedure) [code = 736479423] Future Scheduled 2032-01-[address] [facility] 00:00:00 [facility] colon (procedure) [code = 692158207] Future Scheduled 2032-01-[address] [facility] 00:00:00 [facility] colon (procedure) [code = 765599892] Future Scheduled 2032-01-[address] [facility] 00:00:00 [facility] colon (procedure) [code = 644907005] Future Scheduled 2032-01-[address] [facility] 00[facility]00:00 [facility] colon (procedure) [code = 986932684] Future Scheduled 2032-01-[address] [facility] 00:00:00 [facility] colon (procedure) [code = 024616670] Future Scheduled 2032-01-[address] [facility] 00:00:00 [facility] colon (procedure) [code = 236862415] Future Scheduled 2032-01-[address] [facility] 00:00:00 [facility] colon (procedure) [code = 213579432] Future Scheduled 2032-01-[address] [facility] 00:00:00 [facility] colon (procedure) [code = 911542031] Future Scheduled 2032-01-[address] [facility] 00:00:00 [facility] colon (procedure) [code = 369298272] Future Scheduled 2032-01-[address] [facility] 00:00:00 [facility] colon (procedure) [code = 079441679] Future Scheduled 2032-01-[address] [facility] 00:00:00 [facility] colon (procedure) [code = 903186582] Future Scheduled 2032-01-[address] [facility] 00:00:00 [facility] colon (procedure) [code = 661111878] Future Scheduled 2032-01-[address] [facility] 00:00:00 [facility] colon (procedure) [code = 234825974] Future Scheduled 2032-01-[address] [facility] 00:00:00 [facility] colon (procedure) [code = 559652477] Future Scheduled 2032-01-[address] [facility] 00:00:00 [facility] colon (procedure) [code = 548967413] Future Scheduled 2032-01-[address] [facility] 00:00:00 [facility] colon (procedure) [code = 853410240] Future Scheduled 2032-01-[address] [facility] 00:00:00 [facility] colon (procedure) [code = 263272423] Future Scheduled 2032-01-[address] [facility] 00:00:00 [facility] colon (procedure) [code = 203185079] Future Scheduled 2032-01-[address] [facility] 00:00:00 [facility] colon (procedure) [code = 548627194] Future Scheduled 2032-01-[address] [facility] 00[facility]00:00 [facility] colon (procedure) [code = 259911361] Future Scheduled 2032-01-[address] [facility] 00[facility]00:00 [facility] colon (procedure) [code = 803201622] Future Scheduled 2032-01-[address] [facility] 00:00:00 [facility] colon (procedure) [code = 092188518] Future Scheduled 2023-07-[address] [...] Center Influenza Vaccine (Season Ended)] Future Scheduled 2023-07-[address] [facility] Test 00:00:00 (Season Ended) [code = Medic al Center Influenza Vaccine (Season Ended)] Future Scheduled 2023-07-[address] [facility] Test 00:00:00 (Season Ended) [code = Medic al Center Influenza Vaccine (Season Ended)] Future Scheduled 2023-07-02 Influenza Vaccine (#1[facility]00 [code = Influenza Medical Ce nter Vaccine (#1)] Future Scheduled 2023-04-13 COVID-19 Vaccination [facility] Test 10:02:18 (4 - Booster for MD [facility] Moderna series) [code Center = COVID-19 Vaccination (4 - Booster for Moderna series)] Future Scheduled 2023-03-30 COVID-19 Vaccination [facility] [place] Test 11:51:04 (4 - Booster for MD [facility] Moderna series) [code Center = COVID-19 Vaccination (4 - Booster for Moderna series)] Future Scheduled 2023-03-19 COVID-19 Vaccination [facility] [place] Test 08:32:18 (4 - Booster for MD [facility] Moderna series) [code Center = COVID-19 Vaccination (4 - Booster for Moderna series)] Future Scheduled 2023-03-12 COVID-19 Vaccination [facility] [place] Test 07:01:22 (4 - Booster for MD [facility] Moderna series) [code Center = COVID-19 Vaccination (4 - Booster for Moderna series)] Future [...] Cessation Counseling and Screening (12+)] Future Scheduled 2022-11-01 DEPRESSION SCREENING [facility] DEPRESSION SCREENING (12+)] Future Scheduled 2022-07-02 INFLUENZA VACCINE (#1) C [...] Medical Ce nter VACCINE (#1)] Future Scheduled 2021-11-10 COVID-19 VACCINE (4 - [...] - Booster for Moderna series)] Future Scheduled 2021-11-[address] [facility] 00:00:00 (procedure) [code = [facility] 16380858] Future Scheduled [address] [facility] 00:00:00 (procedure) [code = [facility] 64341560] Future Scheduled [address] [facility] 00:00:00 (procedure) [code = [facility] 19475133] Future Scheduled [address] [facility] 00:00:00 (procedure) [code = [facility] [id number]] Future Scheduled [address] [facility]:00 (procedure) [code = [facility] [id number]] Future Scheduled [address] [facility] 00:00:00 (procedure) [code = [facility] [id number]] Future Scheduled [address] [facility] (procedure) [code = [facility] [id number]] Future Scheduled [address] [facility] 00:[facility] (procedure) [code = [facility] Center 32391463] Future Scheduled [address] [facility] 00:[facility] (procedure) [code = [facility] Center 32533745] Future Scheduled [address] [facility] 00:00:[facility] (procedure) [code = [facility] Center 71762168] Future Scheduled [address] [facility] (procedure) [code = [facility] Center 47268305] Future Scheduled [address] [facility] 00:00:00 (procedure) [code = [facility] Center 84218949] Future Scheduled [address] [facility] 00:00:[facility] (procedure) [code = [facility] Center 84645617] Future Scheduled [address] [facility] 00:[facility] (procedure) [code = [facility] Center 00140701] Future Scheduled 2011-11-[address] [facility] Test 00:00:00 malignant [facility]oplasm of [facility] cervix (procedure) [code = 149312597] Future Scheduled [address] [facility] cervix (procedure) [code = 163846507] Future Scheduled [address] [facility] cervix (procedure) [code = 734640758] Future Scheduled [address] [facility] cervix (procedure) [code = 640413234] Future Scheduled [address] [facility] 00[facility] cervix (procedure) [code = 827872344] Future Scheduled [address] [facility] 00:[facility] cervix (procedure) [code = 901851728] Future Scheduled [address] [facility] 00[facility] cervix (procedure) [code = 860656634] Future Scheduled [address] [facility] 00[facility] cervix (procedure) [code = 755966783] Future Scheduled [address] [facility] cervix (procedure) [code = 168745940] Future Scheduled [address] [facility] 00[facility] cervix (procedure) [code = 537440138] Future Scheduled [address] [facility] 00[facility] cervix (procedure) [code = 900929054] Future Scheduled [address] [facility] 00[facility] cervix (procedure) [code = 513600502] Future Scheduled [address] [facility] 00:00:[facility] cervix (procedure) [code = 787500584] Future Scheduled [address] [facility] 00[facility] cervix (procedure) [code = 990846084] Future Scheduled 1986 DTAP[facility]TDAP/TD [facility] (1 - Tdap) [code = Medical C enter DTAP/TDAP/TD VACCINES (1 - Tdap)] Future Scheduled 1986 DTAP[facility]TDAP/TD [facility]ES [facility] (1 - Tdap) [code = Medical C enter DTAP/TDAP/TD VACCINES (1 - Tdap)] Future Scheduled 1986 DTAP/TDAP/TD [facility]INES [facility]:00[facility] (1 - Tdap) [code = Medical C enter DTAP/TDAP/TD VACCINES (1 - Tdap)] Future Scheduled 1986 DTAP/TDAP/TD [facility]INES [facility]:00[facility] (1 - Tdap) [code = Medical C enter DTAP/TDAP/TD VACCINES (1 - Tdap)] Future Scheduled 1986 DTAP/TDAP/TD [facility]INES [facility]:00[facility] (1 - Tdap) [code = Medical C enter DTAP/TDAP/TD VACCINES (1 - Tdap)] Future Scheduled 1986 DTAP[facility]TDAP/TD [facility]INES [facility]:00[facility] (1 - Tdap) [code = Medical C enter DTAP/TDAP/TD VACCINES (1 - Tdap)] Future Scheduled 1986 DTAP[facility]TDAP/TD [facility]INES [facility]:00[facility] (1 - Tdap) [code = Medical C enter DTAP/TDAP/TD VACCINES (1 - Tdap)] Future Scheduled 1986 DTAP[facility]TDAP/TD [facility]INES [facility]:00:[facility] (1 - Tdap) [code = Medical C enter DTAP/TDAP/TD VACCINES (1 - Tdap)] Future Scheduled 1986 DTAP/TDAP/TD [facility]INES [facility] (1 - [...] [facility] breast (procedure) [code = 310147097] Future Scheduled [address] [facility] 00[facility]00 (combo) [code = CT Medical C enter Colonography (combo)] Future Scheduled [address] [facility] colon (procedure) [code = 498816631] Future Scheduled [address] [facility] 00:00:[facility] colon (procedure) [code = 779076860] Future Scheduled 1967 Sigmoidoscopy [facility] [address] [facility] 00:[facility] malignant neoplasm [facility] breast (procedure) [code = 152885568] Future Scheduled [address] [facility] 00:00:00 (combo) [code = CT Medical C enter Colonography (combo)] Future Scheduled [address] [facility] 00[facility]00:[facility] colon (procedure) [code = 359259432] Future Scheduled [address] [facility] 00:00:00 malignant [facility]oplasm of [facility] colon (procedure) [code = 939822529] Future Scheduled 1967 S[facility]oidoscopy [facility]] Medical Pa[facility] [facility] Future Scheduled [address] [facility] 00:[facility] breast (procedure) [code = 580574615] Future Scheduled [address] [facility] 00:00:00 (combo) [code = CT Medical C enter Colonography (combo)] Future Scheduled [address] [facility] 00:00:[facility] colon (procedure) [code = 401671597] Future Scheduled [address] [facility] 00:00:[facility] colon (procedure) [code = 986538305] Future Scheduled 1967 S[facility]oidoscopy [facility]] Medical James r Future Scheduled [address] [facility] 00:00:00 malignant neoplasm of [facility] breast (procedure) [code = 056728139] Future Scheduled [address] [facility] 00:00:00 (combo) [code = CT Medical C enter Colonography (combo)] Future Scheduled [address] [facility] 00:00:[facility] malignant [facility]oplasm of [facility] colon (procedure) [code = 365896321] Future Scheduled [address] [facility] 00:00:[facility] malignant neoplasm of [facility] colon (procedure) [code = 847730109] Future Scheduled 1967 [facility]oidoscopy [facility]] [facility] r Future Scheduled [address] [facility] 00:00:00 malignant neoplasm of [facility] breast (procedure) [code = 793273244] Future Scheduled [address] [facility] 00:00:00 (combo) [code = CT Medical C enter Colonography (combo)] Future Scheduled [address] [facility] 00:00:00 malignant neoplasm of [facility] colon (procedure) [code = 140999848] Future Scheduled [address] [facility] 00:00:00 malignant neoplasm of [facility] colon (procedure) [code = 628538984] Future Scheduled 1967 [facility]oidoscopy [facility] Future Scheduled [address] [facility] 00:00:00 malignant neoplasm of [facility] breast (procedure) [code = 975937393] Future Scheduled [address] [facility] 00:00:00 (combo) [code = CT Medical C enter Colonography (combo)] Future Scheduled [address] [facility] 00:00:00 malignant neoplasm of [facility] colon (procedure) [code = 582560838] Future Scheduled [address] [facility] 00:00:00 malignant neoplasm of [facility] colon (procedure) [code = 641965373] Future Scheduled 1967 [facility]oidoscopy [facility] Future Scheduled [address] [facility] 00:00:00 malignant neoplasm of [facility] breast (procedure) [code = 438335719] Future Scheduled [address] [facility] 00:00:00 (combo) [code = CT Medical C enter Colonography (combo)] Future Scheduled [address] [facility] 00:00:00 malignant neoplasm of [facility] colon (procedure) [code = 998580745] Future Scheduled [address] [facility] 00:00:00 malignant neoplasm of [facility] colon (procedure) [code = 485770255] Future Scheduled 1967 [facility]oidoscopy [facility] Future Scheduled [address] [facility] 00:00:00 malignant neoplasm of [facility] breast (procedure) [code = 077737946] Future Scheduled [address] [facility] 00:00:00 (combo) [code = CT Medical C enter Colonography (combo)] Future Scheduled [address] [facility] 00:00:00 malignant neoplasm of [facility] colon (procedure) [code = 406365506] Future Scheduled [address] [facility] 00:00:00 malignant neoplasm of [facility] colon (procedure) [code = 737280243] Future Scheduled 1967 [facility]oidoscopy [facility]] [facility] Future Scheduled [address] [facility] 00:00:00 malignant neoplasm of [facility] breast (procedure) [code = 497039104] Future Scheduled [address] [facility] 00:00:00 (combo) [code = CT Medical C enter Colonography (combo)] Future Scheduled [address] [facility] 00[facility]00:00 malignant neoplasm of [facility] colon (procedure) [code = 601794637] Future Scheduled [address] [facility] 00:00:00 malignant [facility]oplasm of [facility] colon (procedure) [code = 631945393] Future Scheduled 1967 [facility]oidoscopy [facility]] [facility] Cent[facility] Future Scheduled [address] [facility] 00:00:00 malignant neoplasm of [facility] breast (procedure) [code = 911925145] Future Scheduled [address] [facility] 00:00:00 (combo) [code = CT Medical C enter Colonography (combo)] Future Scheduled [address] [facility] 00:00:00 malignant neoplasm of [facility] colon (procedure) [code = 823069673] Future Scheduled [address] [facility] 00:00:00 malignant neoplasm of [facility] colon (procedure) [code = 908671730] Future Scheduled 1967 [facility]oidoscopy [facility]] [facility] Future Scheduled [address] [facility] 00:00:00 malignant neoplasm of [facility] breast (procedure) [code = 176701417] Future Scheduled [address] [facility] 00:00:00 (combo) [code = CT Medical C enter Colonography (combo)] Future Scheduled [address] [facility] 00:00:00 malignant neoplasm of [facility] colon (procedure) [code = 556366586] Future Scheduled [address] [facility] 00:00:00 malignant neoplasm of [facility] colon (procedure) [code = 502204831] Future Scheduled 1967 [facility]oidoscopy [facility]] [facility] Future Scheduled [address] [facility] 00:00:00 malignant neoplasm of [facility] breast (procedure) [code = 181922955] Future Scheduled [address] [facility] 00:00:00 (combo) [code = CT Medical C enter Colonography (combo)] Future Scheduled [address] [facility] 00:00:00 malignant neoplasm of [facility] colon (procedure) [code = 787259008] Future Scheduled [address] [facility] 00:00:00 malignant neoplasm of [facility] colon (procedure) [code = 110941489] Future Scheduled 1967 [facility]oidoscopy [facility] Future Scheduled [address] [facility] 00:00:00 malignant neoplasm of [facility] breast (procedure) [code = 458383045] Future Scheduled [address] [facility] 00:00:00 (combo) [code = CT Medical C enter Colonography (combo)] Future Scheduled [address] [facility] 00[facility]00:00 malignant neoplasm of [facility] colon (procedure) [code = 640559726] Future Scheduled [address] [facility] 00:00:00 malignant neoplasm of [facility] colon (procedure) [code = 709874517] Future Scheduled 1967 [facility]oidoscopy [facility]] [facility] Cent[facility] r Future Scheduled [address] [facility] 00:00:00 malignant neoplasm of [facility] breast (procedure) [code = 722779165] Future Scheduled [address] [facility] 00:00:00 (combo) [code = CT Medical C enter Colonography (combo)] Future Scheduled [address] [facility] 00:00:00 malignant neoplasm of [facility] colon (procedure) [code = 623948281] Future Scheduled [address] [facility] 00:00:00 malignant neoplasm of [facility] colon (procedure) [code = 653591985] Future Scheduled 1967 [facility]oidoscopy [facility]] Medical Cent[facility] r Encounters Start End Encounter Admission Attending Care Care Encounter Source Date/Time Date/Time Type Type Clinicians Facility Department ID 2022-11-17 Outpatient SYSTEM, TAO BURGER [id number] 12:15:21 REDDY olivier 2021-08-29 Emergency [facility] [id number] Univers 21:08:39 [facility] 2020-08-23 Inpatient Tapan Martin [facility] [id number] [facility] 15:14:00 14 [facility] 2019-12-07 Inpatient KYLAH Rodriguez [facility] [id number] [facility] 10:00:00 Zacarias 32 [facility] 2023-08-09 2023-08-09 Outpatient Leona SHERIFF [facility] [id number] Univers 09:45:00 09:45:00 NEREIDA [facility] 2023-05-05 2023-05-05 OLGA Yost 1.2.840.114 [id number] Univers 00:00:00 00:00:00 Deyanira WILSON 350.1.13.10 it y of [facility] 4.2.7.2.686 Frankie as [id number] [address] 2023-04-22 2023-04-22 Outpatient [facility] MDA [id number] 15:15:16 16:41:41 WINTER olivier 2023-04-22 2023-04-22 [facility] MDA [id number] 16:28:39 16:37:58 VAIBHAV olivier 2023-04-22 2023-04-22 Outpatient [facility] MDA [id number] 12:18:34 12:30:06 WINTER olivier 2023-04-22 2023-04-22 Outpatient [facility] MDA [id number] 12:29:47 12:29:47 WINTER olivier 2023-04-09 2023-04-09 Rohith Thomas 1.2.840.1 [id number] Univers 00:00:00 00:00:00 Kyung 28785.1.1 ity of 3.412.2.7 [place] .3.721559 MD Soares8 Liane [facility] 2023-04-08 2023-04-08 [facility] 1.2.840.114 [id number] Univers 10:00:00 10:15:00 Visit [facility] 350.1.13.10 it y of [place] 4.2.7.2.686 Frankie as JAVIER?BLEA [id number] [address] MEDICAL OFFICE BUILDING 2023-04-08 2023-04-08 [facility]patient [facility] [id number] Univers 10:00:00 09:19:43 [facility] 2023-04-08 2023-04-08 Rohith Gordon 1.2.840.1 [id number] Univers 00:00:00 00:00:00 Miguel Fernandez 12273.1.1 it y of 3.412.2.7 [place] .3.225233 .8 [facility] 2023-03-12 2023-04-06 Nutrition KYLAH AgarwalManuelKenya Y. 1.2.840.1 [id number] Univers 11:00:00 15:50:58 Lian Jaramillo 65289.1.1 ity of 3.412.2.7 [place] .3.067562 MD Blair [facility] 2023-03-31 2023-03-31 Office Rosana Bower 1.2.840.1 [id number] Univers 10:30:00 11:14:16 Visit 95385.1.1 ity of 3.412.2.7 [place] .3.415178 MD Soares8 [facility] 2023-03-31 2023-03-31 Travel 1.2.840.1 1.2.355.544 [id number] Univers 00:00:00 00:00:00 69330.1.1 350.1.13.41 ity of 3.412.2.7 [place].3.698 [place] .3.535359 084.8 MD Blair [facility] 2023-03-30 2023-03-30 Outpatient Aguilar_M VFP VFP [id number] 45-20 [facility] 00:00:00 00:00:00 [id number] Family Practic e 2023-03-26 2023-03-26 Telephone Kandy, 1.2.840.1 [id number] Univers 00:00:00 00:00:00 Viry Singer 01362.1.1 it y of 3.412.2.7 [place] .3.134493 MD Blair [facility] 2023-03-19 2023-03-23 Telemedici KYLAH Lopes, 1.2.840.1 [id number] Univers 13:30:00 07:29:30 ne Angela 51827.1.1 ity of 3.412.2.7 [place] .3.001796 MD Blair [facility] 2023-03-23 2023-03-23 Telephone Lan, 1.2.840.1 [id number] Univers 00:00:00 00:00:00 Lindy 53613.1.1 ity of [place] 3.412.2.7 [place] .3.053741 MD Soares8 [facility] 2023-03-23 2023-03-23 Orders Lan, 1.2.840.1 [id number] Univers 00:00:00 00:00:00 Only Lindy 86336.1.1 ity of [place] 3.412.2.7 [place] .3.941039 MD Soares8 [facility] 2023-03-18 2023-03-18 Telephone Kenny Power, 1.2.840.1 [id number] Univers 00:00:00 00:00:00 Vaibhav 71072.1.1 ity of 3.412.2.7 [place] .3.370868 MD Soares8 [facility] 2023-03-16 2023-03-16 Orders Lemuel, 1.2.840.1 [id number] Univers 00:00:00 00:00:00 Only Lorena 90498.1.1 ity of Kayla 3.412.2.7 [place] .3.366134 MD Soares8 [facility] 2023-03-12 2023-03-12 Orders Doctor OLGA 1.2.840.114 [id number] Univers 00:00:00 00:00:00 Only Unassigned, STEVE 350.1.13.10 ity of [place] [facility] 4.2.7.2.686 Frankie as [id number] [place] [address] [address] 2023-03-11 2023-03-11 Infusion KYLAH Lemuel, 1.2.840.1 [id number] Univers 13:30:00 15:40:13 Lorena 62581.1.1 ity of Kayla 3.412.2.7 [place] .3.455878 MD Soares8 [facility] 2023-03-11 2023-03-11 Follow-Up KYLAH Hdez, 1.2.840.1 [id number] Univers 11:20:00 12:42:16 Lorena 77272.1.1 ity of Kayla 3.412.2.7 [place] .3.896770 MD Soares8 [facility] 2023-03-11 2023-03-11 Outpatient KYLAH HDEZ MDA MDA [id number] 11:07:27 11:16:17 LORENA Surajelizabeth olivier 2023-03-11 2023-03-11 Travel 1.2.840.1 1.2.755.276 [id number] Univers 00:00:00 00:00:00 67827.1.1 350.1.13.41 ity of 3.412.2.7 2.[place]7.3.698 [place] .3.800723 084.8 MD Soares8 [facility] 2023-03-09 2023-03-09 Telephone Lemuel 1.2.840.1 [id number] Univers 00:00:00 00:00:00 Lorena 72721.1.1 ity of Kayla 3.412.2.7 [place] .3.539963 MD Soares8 [facility] 2023-03-04 2023-03-04 Nutrition Kenya Carrion. 1.2.840.1 [id number] Univers 10:00:00 10:57:47 Lian Jaramillo 29090.1.1 ity of 3.412.2.7 [place] .3.750471 MD Soares8 [facility] 2023-03-04 2023-03-04 OLGA Yost 1.2.840.114 [id number] Univers 00:00:00 00:00:00 Deyanira WILSON 350.1.13.10 it y of [facility] 4.2.7.2.686 Frankie as [id number] [facility] [address] 2023-03-04 2023-03-04 Orders Lemuel 1.2.840.1 [id number] Univers 00:00:00 00:00:00 Only Lorena 63052.1.1 ity of Kayla 3.412.2.7 [place] .3.438224 MD Soares8 [facility] 2023-03-04 2023-03-04 Telephone Carnew, 1.2.840.1 [id number] Univers 00:00:00 00:00:00 Tita Mayorga 94362.1.1 ity of 3.412.2.7 [place] .3.897435 MD Blair [facility] 2023-03-04 2023-03-04 Orders Evan, 1.2.840.1 [id number] Univers 00:00:00 00:00:00 Only Miguel Fernandez 07600.1.1 it y of 3.412.2.7 [place] .3.699959 MD Soares8 [facility] 2023-03-03 2023-03-03 Outpatient KYLAH HDEZ [facility] [id number] [place] 12:48:25 13:03:52 LORENA Ruelas soy 2023-03-03 2023-03-03 Follow-Up KYLAH Power, 1.2.840.1 [id number] Univers 11:40:00 12:57:39 Celarturo 51144.1.1 ity of 3.412.2.7 [place] .3.828976 MD Blair [facility] 2023-03-03 2023-03-03 Rohith Santillan 1.2.840.1 [id number] Univers 00:00:00 00:00:00 Anumol 27799.1.1 ity of 3.412.2.7 [place] .3.945585 MD Blair [facility] 2023-03-03 2023-03-03 Travel 1.2.840.1 1.2.272.335 [id number] Univers 00:00:00 00:00:00 48533.1.1 350.1.13.41 ity of 3.412.2.7 [place]7.3.698 [place] .3.004551 084.8 MD Blair [facility] 2023-03-02 2023-03-02 Rohith Santillan 1.2.840.1 [id number] Univers 00:00:00 00:00:00 Anumol 51641.1.1 ity of 3.412.2.7 [place] .3Rodger616390 MD Soares8 [facility] 2023-02-26 2023-02-26 Telemedici KYLAH Gordon, 1.2.840.1 [id number] Univers 08:30:00 08:56:14 april Fernandez 23539.1.1 it y of 3.412.2.7 [place] .3Rodger736459 MD Soares8 [facility] 2023-02-25 2023-02-25 Nutrition Kenya Carrion 1.2.840.1 [id number] Univers 10:00:00 11:13:11 Lian Jaramillo 00253.1.1 ity of 3.412.2.7 [place] .3Rodger162705 MD Soares8 [facility] 2023-02-23 2023-02-23 [facility] 1.2.840.114 [id number] Univers 00:00:00 00:00:00 Naverus 350.1.13.10 it y of [place] 4.2.7.2.686 Frankie as JAVIER?BLEA [id number] [address] MEDICAL OFFICE BUILDING 2023-02-19 2023-02-19 Telephone Tonny 1.2.840.1 [id number] Univers 00:00:00 00:00:00 Anthony Benjamin 82619.1.1 ity of 3.412.2.7 [place] .3Rodger642074 MD Blair [facility] 2023-02-18 2023-02-18 Nutrition Kenya Carrion 1.2.840.1 [id number] Univers 10:00:00 10:47:33 Lian Jaramillo 62242.1.1 ity of 3.412.2.7 [place] .3Rodger254310 MD Blair [facility] 2023-02-05 2023-02-16 [facility] Deneen Guevara 1.2.840.1 [id number] Univers 16:49:00 16:40:00 Andrade Foremanica 56731.1.1 ity of Romana Guy 3.412.2.7 [place] Amanda Proctor .3.929819 Napoleon Romero, Son Amelia .8 Derrick Prado, Kofi [facility] 2023-02-14 2023-02-[address] [facility] [id number] 11:31:10 12:01:35 KOFI Lauri o n 2023-02-13 2023-02-13 Inpatient [facility] MDA [id number] 15:30:24 16:08:06 KOFI Lauri o soy 2023-02-12 2023-02-12 [facility] Manuel Agarwalley 1.2.840.1 [id number] [facility] 07:00:00 23:59:00 Encounter Sarah 28103.1.1 it y of 3.412.2.7 [place] .3.835841 .8 [facility] 2023-02-12 2023-02-12 Clinical [facility], 1.2.840.1 [id number] [facility] 16:15:00 16:30:00 Support Winter 29746.1.1 ity of Gini 3.412.2.7 [place] .3.512357 MD Soares8 [facility] 2023-02-12 2023-02-12 Documentat Luu, 1.2.840.1 [id number] Univers 00:00:00 00:00:00 ion Winter 10454.1.1 ity of [place]ini 3.412.2.7 [place] .3.649687 MD Soares8 [facility] 2023-02-12 2023-02-12 Orders Luu, 1.2.840.1 [id number] Univers 00:00:00 00:00:00 Only Winter 38539.1.1 ity of [place]ini 3.412.2.7 [place] .3.546897 MD Soares8 [facility] 2023-02-12 2023-02-12 Orders Teo, 1.2.840.1 [id number] Univers 00:00:00 00:00:00 Only Dustin 14193.1.1 ity of 3.412.2.7 [place] .3.740723 .8 [facility] [place] 2023-02-10 2023-02-10 Inpatient KENYA CARRION MDA MDA [id number] 16:26:42 16:26:45 Lauri o n 2023-02-10 2023-02-10 Inpatient KYLAH ABDI MDA MDA [id number] 11:58:56 12:28:35 KOFI Lauri o n 2023-02-10 2023-02-10 Inpatient KYLAH ABDI MDA MDA [id number] 10:33:31 12:07:35 KOFI Lauri o n 2023-02-10 2023-02-10 Anabell WrenCharla aaron 1.2.840.1 [id number] [facility] 00:00:00 00:00:00 Only Tomeka 51939.1.1 ity of 3.412.2.7 [place] .3.782017 .8 [facility] [facility] 2023-02-09 2023-02-09 Inpatient KYLAH ABDI MDA MDA [id number] 20:20:46 20:27:48 KOFI Lauri o n 2023-02-08 2023-02-08 [facility] Kenya Carrion 1.2.840.1 [id number] [facility] 06:00:00 23:59:00 Encounter Y. 62237.1.1 it y of 3.412.2.7 [place] .3.268270 .8 [facility] 2023-02-08 2023-02-08 Inpatient MORGAN-DAVID MDA MDA [id number] 11:08:59 11:38:36 DERRICK Oliviero soy 2023-02-08 2023-02-08 Inpatient KENYA CARRION MDA MDA [id number] [id number] 10:14:12 10:14:16 Lauri o n 2023-02-06 2023-02-06 Inpatient THAO OSORIO MDA MDA 1104 [id number] 15:39:36 16:04:43 Lauri o soy 2023-02-06 2023-02-06 Inpatient THAO OSORIO MDA MDA [id number] [id number] 13:24:20 14:51:55 Lauri o soy 2023-02-06 2023-02-06 Inpatient THAO OSORIO MDA MDA 1104 [id number] 13:24:15 14:51:51 Lauri o soy 2023-02-06 2023-02-06 Travel 1.2.840.1 1.2.526.371 6966 [id number] [facility] 00:00:00 00:00:00 62414.1.1 350.1.13.41 ity of 3.412.2.7 [place].3.698 [place] .3.6670[place] 084.8 .8 [facility] 2023-02-05 2023-02-05 Shelton Kenny Power, 1.2.840.1 [id number] [facility] 00:00:00 00:00:00 Vaibhav 06053.1.1 ity of 3.412.2.7 [place] .3.978135 .8 [facility] 2023-02-04 2023-02-04 Clinical [facility], 1.2.840.1 [id number] [facility] 09:45:00 12:39:12 Support Winter 37764.1.1 ity of Gini 3.412.2.7 [place] .3.379455 .8 [facility] 2023-02-04 2023-02-04 Outpatient KYLAH POWER MDA MDA [id number] 12:23:55 12:34:00 CELYNE Lauri o soy 2023-02-04 2023-02-04 Outpatient KENYA CARRION MDA MDA [id number] 11:16:00 11:43:29 Lauri o soy 2023-02-04 2023-02-04 Follow-Up KYLAH Power, 1.2.840.1 [id number] [facility] 10:40:00 11:00:00 Celyne 36527.1.1 ity of 3.412.2.7 [place] .3.263434 MD Blair [facility] 2023-02-04 2023-02-04 Travel 1.2.840.1 1.2.308.063 6848 [id number] Univers 00:00:00 00:00:00 71524.1.1 350.1.13.41 ity of 3.412.2.7 [place]7.3.698 [place] .3.697035 084.8 MD Blair [facility] 2023-02-03 2023-02-03 Outpatient KENYA CARRION [facility] [id number] 14:18:38 14:50:54 [facility] 2023-02-03 2023-02-03 Infusion KYLAH Power, 1.2.840.1 [id number] Univers 11:00:00 14:13:00 Vaibhav 87052.1.1 ity of 3.412.2.7 [place] .3.520370 MD Blair [facility] 2023-02-03 2023-02-03 Orders Hdez, 1.2.840.1 [id number] Univers 00:00:00 00:00:00 Only Lorena 65594.1.1 ity of Kayla 3.412.2.7 [place] .3.909281 MD Blair [facility] 2023-02-03 2023-02-03 Travel 1.2.840.1 1.2.011.513 3767 [id number] Univers 00:00:00 00:00:00 53146.1.1 350.1.13.41 ity of 3.412.2.7 [place]7.3.698 [place] .3.995156 084.8 MD Blair [facility] 2023-02-02 2023-02-02 Outpatient KENYA CARRION [facility] [id number] 13:32:42 14:29:34 [facility] 2023-02-02 2023-02-02 Travel 1.2.840.1 1.2.567.580 1558 [id number] Univers 00:00:00 00:00:00 98464.1.1 350.1.13.41 ity of 3.412.2.7 2.2.7.3.698 [place] .3.250436 084.8 .8 [facility] 2023-01-26 2023-02-01 [facility] Felisa Rashid 1.2.840.1 [id number] [facility] 16:06:00 18:28:00 Encounter Jad Patel 83794.1.1 ity of Amanda Proctor 3.412.2.7 T Jaycee Castillo .3.948815 Brock Quijano .8 And erso Elian Oneal [facility] 2023-02-01 2023-02-01 Inpatient KENYA CARRION MDA MDA [id number] 15:12:03 15:12:06 Lauri [facility] 2023-01-31 2023-01-31 Rohith Madrigal 1.2.840.1 [id number] Univers 00:00:00 00:00:00 Glenda Peñaloza 80808.1.1 i ty of 3.412.2.7 [place] .3.840018 .8 [facility] 2023-01-29 2023-01-29 Inpatient KT MDA MDA [id number] 12:45:23 14:59:56 Suraj DESHPANDE 2023-01-28 2023-01-28 Telephone oJnathan 1.2.840.1 [id number] [id number] Univers 00:00:00 00:00:00 Felisa Bender 69279.1.1 ity of 3.412.2.7 [place] .3.022602 MD Soares8 [facility] 2023-01-28 2023-01-28 Anabell Hdez 1.2.840.1 [id number] Univers 00:00:00 00:00:00 Only Lorena 49546.1.1 ity of Kayla 3.412.2.7 [place] .3.324434 MD Blair [facility] 2023-01-27 2023-01-27 Inpatient KYLAH HANCOCK TAO MDA [id number] 17:00:08 17:15:25 PARK olivier 2023-01-27 2023-01-27 Inpatient KYLAH AGARWAL KENYA [facility] MDA [id number] [id number] 16:29:18 16:29:21 Lauri o n 2023-01-26 2023-01-26 Travel 1.2.840.1 1.2.621.246 1705 [id number] Univers 00:00:00 00:00:00 91140.1.1 350.1.13.41 ity of 3.412.2.7 [place]7.3.698 [place] .3.775693 084.8 MD Blair [facility] 2023-01-26 2023-01-26 Telephone Castillo, 1.2.840.1 [id number] [id number] Univers 00:00:00 00:00:00 Felisa Bender 31824.1.1 ity of 3.412.2.7 [place] .3.673630 MD Blair [facility] 2023-01-26 2023-01-26 Telephone Castillo, 1.2.840.1 [id number] 1104 [id number] Univers 00:00:00 00:00:00 Felisa Bender 75866.1.1 ity of 3.412.2.7 [place] .3.092204 MD Blair [facility] 2023-01-25 2023-01-25 [facility] Kenya Carrion 1.2.840.1 [id number] 1 [id number] Univers 06:00:00 23:59:00 Encounter Sarah 39403.1.1 it y of 3.412.2.7 [place] .3.687262 MD Blair [facility] 2023-01-25 2023-01-25 [facility] Kenya Carrion Y. 1.2.840.1 [id number] Univers 11:30:00 12:09:30 Lian Jaramillo 37501.1.1 ity of 3.412.2.7 [place] .3.175115 MD Blair [facility] 2023-01-25 2023-01-25 Telephone Castillo, 1.2.840.1 [id number] [id number] Univers 00:00:00 00:00:00 Felisa Bender 33441.1.1 ity of 3.412.2.7 [place] .3.212970 MD Soares8 [facility] 2023-01-22 2023-01-22 Outpatient KENYA CARRION MDA [facility] [id number] 14:08:15 14:37:49 Lauri o 2023-01-22 2023-01-22 Nutrition Kenya Carrion. 1.2.840.1 [id number] 23 [id number] Univers 10:30:00 13:09:10 Lian Jaramillo 42289.1.1 ity of 3.412.2.7 [place] .3.514783 MD Soares8 [facility] 2023-01-22 2023-01-22 Travel 1.2.840.1 1.2.785.878 7683 [id number] Univers 00:00:00 00:00:00 21431.1.1 350.1.13.41 ity of 3.412.2.7 [place]7.3.698 [place] .3.825163 084.8 MD Soares8 [facility] 2023-01-21 2023-01-21 Infusion KYLAH Hdez, 1.2.840.1 [id number] Univers 08:45:00 14:45:37 Lorena 81718.1.1 ity of Kayla 3.412.2.7 [place] .3.950120 MD Soares8 [facility] 2023-01-21 2023-01-21 Outpatient KENYA CARRION MDA [facility] [id number] 13:30:26 14:05:07 Lauri o soy 2023-01-21 2023-01-21 Follow-Up KYLAH Power, 1.2.840.1 [id number] Univers 08:00:00 09:18:40 Vaibhav 90653.1.1 ity of 3.412.2.7 [place] .3.589083 MD Blair [facility] 2023-01-21 2023-01-21 Travel 1.2.840.1 1.2.183.591 3363 [id number] Univers 00:00:00 00:00:00 36203.1.1 350.1.13.41 ity of 3.412.2.7 [place].7.3.698 [place] .3.785177 084.8 MD Blair [facility] 2023-01-20 2023-01-20 Outpatient KENYA CARRION [facility] MDA [id number] 12:58:49 13:48:03 [facility] 2023-01-20 2023-01-20 Consult KYLAH Ponce 1.2.840.1 [id number] Univers 11:20:00 12:57:27 a, 90525.1.1 ity [facility] [place].2.7 [place] .3.335511 MD Blair [facility] 2023-01-20 2023-01-20 Outpatient KYLAH HDEZ [facility] MDA [id number] 12:44:37 12:57:[address] [facility] 2023-01-20 2023-01-20 Documentat Nabil, 1.2.840.1 [id number] Univers 00:00:00 00:00:00 ion Nereida Johnston 09628.1.1 it y of 3.412.2.7 [place] .3.902981 MD Blair [facility] 2023-01-20 2023-01-20 Travel 1.2.840.1 1.2.253.686 6101 [id number] Univers 00:00:00 00:00:00 82715.1.1 350.1.13.41 ity of 3.412.2.7 [place].7.3.698 [place] .3.287835 084.8 MD Blair [facility] 2023-01-19 2023-01-19 Clinical KYLAH Luu 1.2.840.1 [id number] 67711 [id number] Univers 15:30:00 16:24:21 Support Winter 17408.1.1 ity of Gini 3.412.2.7 [place] .3.111718 .8 [facility] 2023-01-19 2023-01-19 Outpatient KYLAH AGARWAL KENYA MDA MDA [id number] 14:39:40 15:15:48 Laurichrissy olivier 2023-01-19 2023-01-19 Outpatient R JAZIEL, [facility] [id number] Univers 09:00:00 09:00:00 NEREIDA ity of [facility] 2023-01-19 2023-01-19 Travel 1.2.840.1 1.2.148.576 4093 [id number] [facility] 00:00:00 00:00:00 28202.1.1 350.1.13.41 ity of 3.412.2.7 2.2.7.3.698 [facility] .3.547002 084.8 .8 [facility] 2023-01-11 2023[facility]01-18 [facility] 1.2.840.1 [id number] [facility] 19:31:00 19:34:00 Encounter Roberto Carlos Walsh 73558.1.1 ity of Chung Romero 3.412.2.7 [facility] .3.221175 Brock Quijano .8 [facility] 2023-01-17 2023-01-18 Inpatient KYLAH AGRAWAL TAO MDA [id number] 23:34:01 00:08:34 BROCK olivier 2023-01-15 2023-01-15 Outpatient R RADIOLOGY [facility] [id number] Univers 10:00:00 10:00:00 ity of [facility] 2023-01-14 2023-01-14 Inpatient KYLAH AGRAWAL TAO MDA [id number] MD 13:45:42 14:35:12 BROCK olivier 2023-01-14 2023-01-14 Inpatient KYLAH AGARWALMANUELKENYA MDA MDA [id number] 10:28:01 10:28:06 Lauri olivier 2023-01-14 2023-01-14 Orders Gorman, 1.2.840.1 [id number] 11 [id number] Univers 00:00:00 00:00:00 Only Mukund 29340.1.1 [place].412.2.7 [place] .3.005[place] MD Soares8 [facility] 2023-01-13 2023-01-13 Inpatient KYLAH NGHIATAO [facility] [id number] 18:17:55 18:32:[facility] 2023-[facility]-12 Inpatient KENYA CARRION MDA [facility] [id number] 16:36:56 16:36:59 [facility] 2023-01-12 2023-01-12 Refmaddie Ordaz, 1.2.840.1 [id number] Univers 00:00:00 00:00:00 Cerena 30642.1.1 ity of 3.412.2.7 [place] .3.398058 MD Soares8 [facility] 2023-01-11 2023-01-11 Travel 1.2.840.1 1.2.781.438 0963 [id number] Univers 00:00:00 00:00:00 28463.1.1 350.1.13.41 ity of 3.412.2.7 [place].7.3.698 [place] .3.074053 084.8 MD Soares8 [facility] 2023-01-11 2023-01-11 Telephone Jonathan, 1.2.840.1 [id number] [id number] Univers 00:00:00 00:00:00 Felisa M 75688.1.1 ity of 3.412.2.7 [place] .3.487233 MD Soares8 [facility] 2023-01-08 2023-01-08 Outpatient KENYA CARRION MDA [facility] [id number] 13:23:30 14:05:33 Lauri olivier 2023-01-08 2023-01-08 Nutrition Kenya Carrion. 1.2.840.1 [id number] Univers 10:00:00 10:47:33 Lian Jaramillo 65335.1.1 ity of 3.412.2.7 [place] .3.615431 MD Blair [facility] 2023-01-08 2023-01-08 Travel 1.2.840.1 1.2.231.222 3292 [id number] Univers 00:00:00 00:00:00 66040.1.1 350.1.13.41 ity of 3.412.2.7 [place].7.3.698 [place] .3.330679 084.8 MD Blair [facility] 2023-01-07 2023-01-07 Infusion KYLAH Hdez, 1.2.840.1 [id number] [id number] Univers 09:00:00 13:58:13 Lorena 69591.1.1 ity of Kayla 3.412.2.7 [place] .3.356740 MD Blair [facility] 2023-01-07 2023-01-07 Follow-Up KYLAH Hdez 1.2.840.1 [id number] [id number] Univers 08:40:00 09:41:57 Lorena 39670.1.1 ity of Kayla 3.412.2.7 [place] .3.867356 MD Blair [facility] 2023-01-07 2023-01-07 Outpatient KENYA CARRION MDA MDA [id number] 09:08:41 09:08:41 Lauri jaramillo 2023-01-07 2023-01-07 Outpatient KYLAH HDEZ MDA MDA [id number] 08:18:38 08:32:37 LORENA olivier 2023-01-07 2023-01-07 Travel 1.2.840.1 1.2.601.301 8743 [id number] [facility] 00:00:00 00:00:00 48230.1.1 350.1.13.41 ity of 3.412.2.7 [place]7.3.698 [place] .3.270711 084.8 MD Blair [facility] 2023-01-06 2023-01-06 Outpatient KENYA CARRION [facility] [id number] 14:37:02 14:59:48 Laurichrissy olivier 2023-01-06 2023-01-06 Infusion KYLAH Hdez, 1.2.840.1 [id number] [id number] Univers 11:00:00 13:00:00 Lorena 94665.1.1 ity of Kayla 3.412.2.7 [place] .3.790243 MD Soares8 [facility] 2023-01-06 2023-01-06 Travel 1.2.840.1 1.2.475.232 0279 [id number] [facility] 00:00:00 00:00:00 95785.1.1 350.1.13.41 ity of 3.412.2.7 2.[place].7.3.698 [place] .3.007368 084.8 MD Soares8 [facility] 2023-01-05 2023-01-05 Outpatient KENYA CARRION [facility] [id number] 13:16:48 13:59:03 Laurichrissy olivier 2023-01-05 2023-01-05 Travel 1.2.840.1 1.2.010.867 3037 [id number] [facility] 00:00:00 00:00:00 52663.1.1 350.1.13.41 ity of 3.412.2.7 [place].7.3.698 [place] .3.785345 084.8 MD Soares8 [facility] 2023-01-04 2023-01-04 Infusion KYLAH Hdez, 1.2.840.1 [id number] Univers 10:45:00 14:51:21 Lorena 36029.1.1 ity of Kayla 3.412.2.7 [place] .3.040199 MD Blair [facility] 2023-01-04 2023-01-04 Clinical Jus, 1.2.840.1 [id number] Univers 14:00:00 14:25:20 Support Winter 14259.1.1 ity of Gini 3.412.2.7 [place] .3.289401 MD Blair [facility] 2023-01-04 2023-01-04 Outpatient KENYA CARRION [facility] MDA [id number] 13:10:05 13:43:01 Lauri o soy 2023-01-04 2023-01-04 Travel 1.2.840.1 1.2.563.602 0201 [id number] Univers 00:00:00 00:00:00 99148.1.1 350.1.13.41 ity of 3.412.2.7 [place].7.3.698 [place] .3.276490 084.8 MD Blair [facility] 2023-01-01 2023-01-01 Infusion KYLAH Hdez, 1.2.840.1 [id number] [facility] 09:00:00 14:20:57 Lorena 02344.1.1 ity of Kayla 3.412.2.7 [place] .3.401002 MD Blair [facility] 2023-01-01 2023-01-01 Outpatient KENYA CARRION [facility] MDA [id number] 13:31:26 14:06:59 Lauri o 2023-01-01 2023-01-01 Follow-Up KYLAH Power, 1.2.840.1 [id number] [facility] 08:40:00 09:31:03 Celyne 61358.1.1 ity of 3.412.2.7 [place] .3.082999 MD Blair [facility] 2023-01-01 2023-01-01 Outpatient KYLAH HDEZ [facility] MDA [id number] 08:19:22 08:27:50 LORENA Ruelas so 2023-01-01 2023-01-01 Rohith Guardado, 1.2.840.1 [id number] [facility] 00:00:00 00:00:00 Brittni A 06911.1.1 ity of 3.412.2.7 [place] .3.507851 MD Blair [facility] 2023-01-01 2023-01-01 Travel 1.2.840.1 1.2.132.216 2339 [id number] Univers 00:00:00 00:00:00 91873.1.1 350.1.13.41 ity of 3.412.2.7 2.2.7.3.698 [place] .3.411019 084.8 MD Blair [facility] 2022-12-31 2022-12-31 Gala Doyle, 1.2.840.1 [id number] 1103 [id number] Univers 00:00:00 00:00:00 Tita Tierra 46247.1.1 ity of 3.412.2.7 [place] .3.057392 MD Soares8 [facility] 2022-12-31 2022-12-31 Anabell Hdez, 1.2.840.1 [id number] Univers 00:00:00 00:00:00 Only Lorena 81559.1.1 ity of Kayla 3.412.2.7 [place] .3.527481 MD Blair [facility] 2022-12-30 2022[facility]30 [facility] 1.2.840.1 [id number] 07044 [id number] Univers 09:33:09 23:59:00 Encounter Miguel Fernandez 47997.1.1 ity of 3.412.2.7 [place] .3.065712 MD Blair [facility] 2022-12-30 2022-12-30 Outpatient KENYA CARRION [facility] [id number] 13:48:18 14:15:54 [facility] 2022-12-30 2022-12-30 [facility] 1.2.840.1 1.2.808.675 1811 [id number] Univers 00:00:00 00:00:00 52093.1.1 350.1.13.41 ity of 3.412.2.7 2.2.7.3.698 [place] .3.965868 084.8 MD Blair [facility] 2022-12-29 2022-12-29 [facility] JessicaYan, 1.2.840.1 [id number] Univers 08:00:00 23:59:00 Encounter Suzanne 74719.1.1 it y of 3.412.2.7 [place] .3.868860 MD Blair [facility] 2022-12-29 2022-12-29 Outpatient KENYA CARRION [facility] [id number] 13:04:30 13:32:42 [facility] 2022-12-29 2022-12-29 Travel 1.2.840.1 1.2.851.997 9129 [id number] [facility] 00:00:00 00:00:00 31255.1.1 350.1.13.41 ity of 3.412.2.7 2.2.7.3.698 [place] .3.7624[place] Blair [facility] 2022-12-28 2022-12-28 Clinical Luu, 1.2.840.1 [id number] [id number] [facility] 14:00:00 15:17:09 Support Winter 54528.1.1 ity of Gini 3.412.2.7 [place] .3.678467 MD Blair [facility] 2022-12-28 2022-12-28 Outpatient KENYA CARRION [facility] [id number] 13:27:37 14:08:09 [facility] 2022-12-28 2022-12-28 Nutrition KYLAH Agarwal Kenya Álvarez. 1.2.840.1 [id number] [facility] 10:00:00 10:53:45 Lian Jaramillo 95496.1.1 ity of 3.412.2.7 [place] .3.652962 MD Blair [facility] 2022-12-28 2022-12-28 Travel 1.2.840.1 1.2.162.092 9989 [id number] [facility] 00:00:00 00:00:00 43101.1.1 350.1.13.41 ity of 3.412.2.7 2.2.7.3.698 [place]3.9[place] Blair [facility] 2022-12-25 2022-12-25 Outpatient KENYA CARRION [facility] [id number] 14:06:37 15:08:07 Lauri olivier 2022-12-25 2022-12-25 Travel 1.2.840.1 1.2.749.105 7740 [id number] Univers 00:00:00 00:00:00 54857.1.1 350.1.13.41 ity of 3.412.2.7 2.2.7.3.698 [place] .3.360134 084.8 .8 Liane olivier [facility] 2022-12-24 2022-12-24 Infusion KYLAH Hdez, 1.2.840.1 [id number] Univers 08:45:00 15:46:35 Lorena 93038.1.1 ity of Kayla 3.412.2.7 [place] .3.153493 .8 Liane olivier [facility] 2022-12-24 2022-12-24 Outpatient KENYA CARRION [facility] [id number] 13:51:59 14:40:52 Lauri olivier 2022-12-24 2022-12-24 Follow-Up KYLAH Power, 1.2.840.1 [id number] Univers 08:20:00 10:15:28 Celyne 37514.1.1 ity of 3.412.2.7 [place] .3.442281 MD [facility]-24 2022-12-24 Outpatient KYLAH HDEZ [facility] [id number] MD 09:15:48 09:27:18 LORENA olivier 2022-12-24 2022-12-24 Rohith Sheriff [facility] 1.2.840.114 [id number] Univers 00:00:00 00:00:00 Naverus 350.1.13.10 it y of LCARA 4.2.7.2.686 Frankie as JAVIER?BLEA [id number] [address] MED[facility] 2022-12-24 2022-12-24 Telephone Jonathan, 1.2.840.1 [id number] [id number] Univers 00:00:00 00:00:00 Felisa Bender 11700.1.1 ity of 3.412.2.7 [place] .3.076468 MD Blair [facility] 2022-12-24 2022-12-24 Telephone Kenya Agarwal 1.2.840.1 [id number] Univers 00:00:00 00:00:00 Y. 83013.1.1 ity of 3.412.2.7 [place] .3.439831 MD Blair [facility] 2022-12-24 2022-12-24 Telephone Carnew, 1.2.840.1 [id number] [id number] Univers 00:00:00 00:00:00 Tita Mayorga 87315.1.1 ity of 3.412.2.7 [place] .3.495066 MD Blair [facility] 2022-12-24 2022-12-24 Telephone Carnew, 1.2.840.1 [id number] [id number] Univers 00:00:00 00:00:00 Tita Mayorga 24723.1.1 ity of 3.412.2.7 [place] .3.648542 MD Blair [facility] 2022-12-24 2022-12-24 Telephone Kenny Monteiroe, 1.2.840.1 [id number] Univers 00:00:00 00:00:00 Vaibhav 62617.1.1 ity of 3.412.2.7 [place] .3.982721 MD Blair [facility] 2022-12-24 2022-12-24 Travel 1.2.840.1 1.2.826.255 7790 [id number] Univers 00:00:00 00:00:00 13519.1.1 350.1.13.41 ity of 3.412.2.7 2.2.7.3.698 [place] .3.370832 084.8 MD Blair [facility] 2022-12-24 2022-12-24 Orders Kenny Monteiroe, 1.2.840.1 [id number] Univers 00:00:00 00:00:00 Only Celyne 16087.1.1 ity of 3.412.2.7 [place] .3.833518 MD Soares8 [facility] [place] 2022-12-23 2022-12-23 [facility] 1.2.840.1 [id number] Univers 09:30:00 23:59:00 Encounter Otilia 46633.1.1 it y of 3.412.2.7 [place] .3.043678 MD Soares8 [facility] [place] 2022-12-23 2022-12-23 Outpatient KENYA [facility] MDA [id number] 13:50:34 14:48:40 [facility] 2022-12-23 2022-12-23 Clinical EL Winter Luu 1.2.840.8 [id number] [facility] 10:15:00 10:30:00 Support Dony Calhoun 76000.1.1 ity of 3.412.2.7 [place] .3.302983 MD Soares8 [facility] 2022-12-23 2022-12-23 Documentat Murdo, 1.2.840.1 [id number] Univers 00:00:00 00:00:00 ion Winter 68485.1.1 ity of Gini 3.412.2.7 [place] .3.099473 MD Blair [facility] 2022-12-23 2022-12-23 Telephone Pricekourtney [employer], 1.2.840.1 [id number] Univers 00:00:00 00:00:00 Vaibhav 37690.1.1 ity of 3.412.2.7 [place] .3.366115 MD Soares8 [facility] 2022-12-23 2022-12-23 Telephone Carnlul, 1.2.840.1 [id number] Univers 00:00:00 00:00:00 Tita Mayorga 45721.1.1 ity of 3.412.2.7 [place] .3.407003 MD Blair [facility] 2022-12-23 2022-12-23 Travel 1.2.840.1 1.2.446.342 [id number] [id number] Univers 00:00:00 00:00:00 52682.1.1 350.1.13.41 ity of 3.412.2.7 [place]7.3.698 [place] .3.728735 084.8 MD Soares8 [facility] 2022-12-23 2022-12-23 Orders Lemuel, 1.2.840.1 [id number] Univers 00:00:00 00:00:00 Only Lorena 52401.1.1 ity of Kayla 3.412.2.7 [place] .3.853191 MD Soares8 [facility] 2022-12-18 2022-12-18 Anabell Montenegro, 1.2.840.1 [id number] Univers 00:00:00 00:00:00 Only Lindy 81318.1.1 ity of Ashleigh 3.412.2.7 [place] .3.199504 MD Soares8 [facility] 2022-12-18 2022-12-18 Anabell Montenegro, 1.2.840.1 [id number] Univers 00:00:00 00:00:00 Only Lindy 01553.1.1 ity of Ashleigh 3.412.2.7 [place] .3.486285 MD Soares8 [facility] 2022-12-17 2022-12-17 Clinical Kenya Carrion. 1.2.840.1 [id number] Univers 08:00:00 10:48:06 Support Maria Luz Cochran 41417.1.1 ity of 3.412.2.7 [place] .3.210633 MD Soares8 [facility] 2022-12-17 2022-12-17 Outpatient KYLAH LUU MDA MDA [id number] 08:37:01 10:43:17 WINTER olivier 2022-12-17 2022-12-17 Documentat Jus, 1.2.840.1 [id number] Univers 00:00:00 00:00:00 ion Winter 57866.1.1 ity of Gini 3.412.2.7 [place] .3.617419 MD Blair [facility] 2022-12-17 2022-12-17 Documentat Murdo, 1.2.840.1 [id number] [id number] Univers 00:00:00 00:00:00 ion Winter 66399.1.1 ity of Gini 3.412.2.7 [place] .3.183911 MD Soares8 [facility] 2022-12-17 [facility]22[facility]12-[facility].840.1 [id number] Univers 00:00:00 00:00:00 ion Winter 37119.1.1 ity of Gini 3.412.2.7 [place] .3.795139 MD Blair [facility] 2022-12-17 2022-12-17 [facility], 1.2.840.1 [id number] Univers 00:00:00 00:00:00 Only Lorena 97303.1.1 ity of Kayla 3.412.2.7 [place] .3.443884 MD Blair [facility] 2022-12-17 2022-12-17 Travel 1.2.840.1 1.2.068.627 [id number] Univers 00:00:00 00:00:00 08200.1.1 350.1.13.41 ity of 3.412.2.7 [place].3.698 [place] .3.602750 084.8 MD Blair [facility] 2022-12-17 2022-12-17 [facility], 1.2.840.1 [id number] Univers 00:00:00 00:00:00 Only Winter 90995.1.1 ity of Gini 3.412.2.7 [place] .3.610990 MD Blair [facility] 2022-12-16 2022-12-16 [facility], 1.2.840.1 [id number] Univers 00:00:00 00:00:00 Only Winter 89939.1.1 ity of Gini 3.412.2.7 [place] .3.552631 .8 [facility] 2022-12-16 2022-12-16 Telephone Jonathan, 1.2.840.1 [id number] Univers 00:00:00 00:00:00 Felisa M 46217.1.1 ity of 3.412.2.7 [place] .3.245798 .8 [facility] 2022-12-16 2022-12-16 Telephone Rosmery Dickinson 1.2.840.1 [id number] Univers 00:00:00 00:00:00 M 57485.1.1 ity of 3.412.2.7 [place] .3.835935 .8 [facility] 2022-12-15 2022-12-15 [facility] KYLAH Agarwal [place] 1.2.840.1 [id number] Univers 08:42:55 23:59:00 Encounter Sarah 95096.1.1 it y of 3.412.2.7 [place] .3.340424 .8 [facility] 2022-12-09 2022-12-15 [facility] Mer Milian 1.2.840.1 [id number] Univers 21:01:00 19:30:00 Encounter Roberto Carlos Walsh 54632.1.1 ity of Reva Rajput 3.412.2.7 [place] Graciela Adorno .3.310954 Jaycee Muñoz .8 [facility], Cerena Vera nter 2022-12-15 2022-12-15 Outpatient KYLAH BAI MDA MDA [id number] 08:39:37 15:02:22 RON olivier 2022-12-15 2022-12-15 Inpatient KYLAH DAVIS MDA MDA [id number] MD 09:34:01 10:58:12 FAREED olivier 2022-12-15 2022-12-15 Rohith Montenegro 1.2.840.1 [id number] Univers 00:00:00 00:00:00 Lindy 10023.1.1 ity of Ashleigh 3.412.2.7 [place] .3.699998 MD Soares8 [facility] 2022-12-15 2022-12-15 Orders K[place]yal[place]unt 1.2.840.1 [id number] 11 [id number] Univers 00:00:00 00:00:00 Only a, 80952.1.1 ity of [place]2.7 [place] .3.764860 MD Soares8 [facility] 2022-12-15 2022-12-15 Orders K[place]yal[place]unt 1.2.840.1 [id number] 11 [id number] Univers 00:00:00 00:00:00 Only a, 72204.1.1 ity of [place].7 [place] .3.466815 MD Soares8 [facility] 2022-12-15 2022-12-15 Orders Shaziai, 1.2.840.1 [id number] 1102 [id number] Univers 00:00:00 00:00:00 Only Maya 97169.1.1 ity of 3.412.2.7 [place] .3.399122 MD Blair [facility] 2022-12-15 2022-12-15 Ophth Exam Dawson, 1.2.840.1 [id number] 1 [id number] Univers 00:00:00 00:00:00 Maya 89508.1.1 ity of 3.412.2.7 [place] .3.154831 MD Soares8 [facility] 2022-12-14 2022-12-14 [facility] KENYA CARRION [facility] 1102 [id number] 17:21:25 17:21:31 [facility] 2022-12-14 2022-12-14 Orders Martínez, 1.2.840.1 [id number] 5059 Univers 00:00:00 00:00:00 Only Wilder 31901.1.1 ity of 3.412.2.7 [place] .3.108151 MD Blair [facility] 2022-12-11 2022-12-11 Inpatient KENYA CARRION [facility] 1102 [id number] 11:49:45 11:49:48 Lauri [facility] 2022-12-11 2022-12-11 Telephone Gomez, 1.2.840.1 [id number] 1102 [id number] Univers 00:00:00 00:00:00 Triston Rollins 54081.1.1 it y of 3.412.2.7 [place] .3.343388 MD Soares8 [facility] 2022-12-10 2022-12-10 Travel 1.2.840.1 1.2.013.262 6531 [id number] Univers 00:00:00 00:00:00 67319.1.1 350.1.13.41 ity of 3.412.2.7 2.[place].7.3.698 [place] .3.196261 084.8 MD Soares8 [facility] 2022-12-10 2022-12-10 Orders Martínez, 1.2.840.1 [id number] 3700 Univers 00:00:00 00:00:00 Only Wilder 29342.1.1 ity of 3.412.2.7 [place] .3.022718 MD Blair [facility] 2022-12-08 2022-12-08 Telephone Lan, 1.2.840.1 [id number] 180 [id number] Univers 00:00:00 00:00:00 Lindy 08030.1.1 ity of Ashleigh 3.412.2.7 [place] .3.854153 MD Soares8 [facility] 2022-12-08 2022-12-08 Orders Lemuel, 1.2.840.1 [id number] 5214 Univers 00:00:00 00:00:00 Only Lorena 19922.1.1 ity of Kayla 3.412.2.7 [place] .3.477357 MD Blair [facility] 2022-12-05 2022-12-05 Telephone Luu, 1.2.840.1 [id number] 1102 [id number] Univers 00:00:00 00:00:00 Winter 63249.1.1 ity of Gini 3.412.2.7 [place] .3.362175 MD Soares8 [facility] 2022-12-05 2022-12-05 Orders Jus, 1.2.840.1 [id number] 3053 Univers 00:00:00 00:00:00 Only Winter 40380.1.1 ity of Gini 3.412.2.7 [place] .3.377908 MD Soares8 [facility] 2022-12-04 2022-12-04 [facility] .1 [id number] Univers 10:55:00 23:59:00 Encounter Lorena Hdez 94901.1.1 ity of 3.412.2.7 [place] .3.573957 MD Soares8 [facility] 2022-12-04 2022-12-04 Telephone Antonella, 1.2.840.1 [id number] 11 [id number] Univers 00:00:00 00:00:00 Red Bender 56530.1.1 it y of 3.412.2.7 [place] .3.184907 MD Soares8 [facility] 2022-12-04 2022-12-04 Multidisci Antonella, 1.2.840.1 [id number] 1 [id number] Univers 00:00:00 00:00:00 plinary Red Bender 20826.1.1 it y of Visit 3.412.2.7 [place] .3.114357 MD Blair [facility] 2022-12-04 2022-12-04 Telephone Dimas, 1.2.840.1 [id number] 11 [id number] Univers 00:00:00 00:00:00 Maria Luz Lund 82439.1.1 ity of 3.412.2.7 [place] .3.442952 MD Blair [facility] 2022-12-02 2022-12-02 Anabell Montenegro, 1.2.840.1 [id number] Univers 00:00:00 00:00:00 Only Lindy 35876.1.1 ity of [place]leigh 3.412.2.7 [place] .3.900244 MD Blair [facility] 2022-12-02 2022-12-02 Orders Luu, 1.2.840.1 [id number] 5314 Univers 00:00:00 00:00:00 Only Winter 25169.1.1 ity of Gini 3.412.2.7 [place] .3.836820 MD Blair [facility] 2022-11-30 2022-11-30 Ancillary KYLAH Hdez, 1.2.840.1 [id number] 1102 [id number] Univers 08:15:00 10:00:00 Procedure Lorena 55608.1.1 i ty of Kayla 3.412.2.7 [place] .3.885999 MD Blair [facility] 2022-11-30 2022-11-30 Travel 1.2.840.1 1.2.055.776 1010 [id number] Univers 00:00:00 00:00:00 02878.1.1 350.1.13.41 ity of 3.412.2.7 2.[place].7.3.698 [place] .3.704247 084.8 MD Blair [facility] 2022-11-27 2022-11-27 Ancillary KYLAH Montenegro, 1.2.840.1 [id number] Univers 12:00:00 14:30:00 Procedure Lindy 17293.1.1 it y of [place]leigh 3.412.2.7 [place] .3.552441 MD Blair [facility] 2022-11-27 2022-11-27 Travel 1.2.840.1 1.2.795.173 2427 [id number] Univers 00:00:00 00:00:00 75099.1.1 350.1.13.41 ity of 3.412.2.7 2.2.7.3.698 [place] .3.635761 084.8 MD Blair [facility] 2022-11-26 2022-11-26 Outpatient EL HDEZ, MDA MDA [id number] 13:07:20 13:20:48 LORENA Suraj n 2022-11-26 2022-11-26 Consult KYLAH Power, 1.2.840.1 [id number] 11 [id number] Univers 11:00:00 13:02:56 Vaibhav 79700.1.1 ity of 3.412.2.7 [place] .3.843503 MD Soares8 [facility] 2022-11-26 2022-11-26 Consult KYLAH Luu, 1.2.840.1 [id number] 1115 Univers 10:00:00 11:43:01 Winter 66256.1.1 ity of Gini 3.412.2.7 [place] .3.313030 MD Blair [facility] 2022-11-26 2022-11-26 Travel 1.2.840.1 1.2.192.006 8858 [id number] Univers 00:00:00 00:00:00 30157.1.1 350.1.13.41 ity of 3.412.2.7 2.[place].7.3.698 [place] .3.838692 084.8 MD Blair [facility] 2022-11-24 2022-11-24 Lab David Nunez 1.2.840.1 [id number] Univers 00:00:00 00:00:00 Alexa Cantrell 60926.1.1 i ty of n 3.412.2.7 [place] .3.780923 MD Blair [facility] 2022-11-23 2022-11-23 Telephone Jeffy, 1.2.840.1 [id number] 1101 [id number] Univers 00:00:00 00:00:00 Ofe Bourgeois 30926.1.1 it y of 3.412.2.7 [place] .3.662795 MD Blair [facility] 2022-11-22 2022-11-22 Orders Olivier, 1.2.840.1 [id number] 4740 Univers 00:00:00 00:00:00 Only Berkley 67224.1.1 ity of 3.412.2.7 [place] .3.375555 .8 [facility] 2022-11-20 2022-11-20 Telephone Mateusz, 1.2.840.1 [id number] 1101 [id number] Univers 00:00:00 00:00:00 Elana 03935.1.1 ity of 3.412.2.7 [place] .3.490407 MD Soares8 [facility] 2022-11-18 2022-11-18 Refill Doctor [facility] 1.2.840.114 [id number] Univers 00:00:00 00:00:00 Unassigned, HEALTH 350.1.13.10 ity of [place] CLARA 4.2.7.2.686 Frankie as JAVIER?BLEA [id number] [address] OFFICE [facility] 2022-11-18 2022-11-18 Telephone Jaziel [facility] 1.2.885.375 8356 2755 Univers 00:00:00 00:00:00 Nereida SocialDial 350.1.13.10 it y of CLARA 4.2.7.2.686 Frankie as JAVIER?BLEA [id number] [address] OFFICE [facility] 2022-11-17 2022-11-17 Outpatient KYLAH POSADA MDA [facility] [id number] [id number] 11:49:34 15:08:37 RED olivier 2022-11-17 2022-11-17 Office Kenya Carrion 1.2.840.1 [id number] 11 [id number] Univers 09:15:00 11:44:36 Visit Y. 66178.1.1 ity of 3.412.2.7 [place] .3.486357 .8 [facility] 2022-11-17 2022-11-17 NPR Kenya Carrion 1.2.840.1 [id number] 11 [id number] Univers 08:45:00 09:16:44 Y. 83119.1.1 ity of 3.412.2.7 [place] .3.064983 MD Blair [facility] 2022-11-17 2022-11-17 Telephone [facility] 1.2.547.490 3790 6046 Univers 00:00:00 00:00:00 [facility] 350.1.13.10 it [facility] 4.2.7.2.686 Frankie as JAVIER?BLEA [id number] [address] 2022-11-17 2022-11-17 Travel 1.2.840.1 1.2.245.870 0573 [id number] Univers 00:00:00 00:00:00 31112.1.1 350.1.13.41 ity of 3.412.2.7 2.2.7.3.698 [place] .3.157112 084.8 MD Soares8 [facility] 2022-11-16 2022-11-16 Anabell Posada 1.2.840.1 [id number] 1101 [id number] Univers 00:00:00 00:00:00 Only Red Bender 21304.1.1 it y of 3.412.2.7 [place] .3.444450 MD Blair [facility] 2022-11-13 2022-11-13 Telephone [facility] 1.2.162.607 1110 7693 Univers 00:00:00 00:00:00 [facility] 350.1.13.10 it y [facility] 4.2.7.2.686 Frankie as JAVIER?BLEA [id number] [address] 2022-11-12 2022-11-12 Orders Yinka 1.2.840.1 [id number] 1101 [id number] Univers 00:00:00 00:00:00 Only Chloe Alejandre 29137.1.1 it y of 3.412.2.7 [place] .3.154347 MD Soares8 [facility] 2022-11-12 2022-11-12 Orders Antonella 1.2.840.1 [id number] 1101 [id number] Univers 00:00:00 00:00:00 Only Red Bender 55115.1.1 it y of 3.412.2.7 [place] .3.499845 MD Soares8 [facility] 2022-11-07 2022-11-07 [facility]maddie [facility] 1.2.840.114 [id number] Univers 00:00:00 00:00:00 [place] [facility] 350.1.13.10 it y of [place] 4.2.7.2.686 Frankie as JAVIER?BLEA [id number] [address] OFFICE [facility] 2022-11-03 2022-11-03 Refeast [facility] 1.2.840.114 [id number] Univers 00:00:00 00:00:00 [facility] 350.1.13.10 it y of [place] 4.2.7.2.686 Frankie as JAVIER?BLEA [id number] [address] OFFICE [facility] 2022-11-03 2022-11-03 [facility] 1.2.840.114 [id number] 703 Univers 00:00:00 00:00:00 [facility] 350.1.13.10 it y of Edward [place] 4.2.7.2.686 Frankie as JAVIER?BLEA [id number] [address] OFFICE [facility] 2022-10-21 2022-10-21 Office [facility] 1.2.840.114 [id number] Univers 09:30:00 09:45:00 Visit [place] 73779.1.13.10 it y of [place] 4.2.7.2.686 Frankie as JAVIER?BLEA [id number] [address] OFFICE [facility] 2022-10-21 2022-10-21 Outpatient R JAZIEL [facility] [id number] Univers 09:30:00 09:24:24 [facility] 2022-10-01 2022-10-01 [facility]maddie [facility] 1.2.840.114 [id number] Univers 00:00:00 00:00:00 [facility] 350.1.13.10 it y of [place] 4.2.7.2.686 Frankie as JAVIER?BLEA [id number] [address] OFFICE [facility] 2022-09-21 2022-09-21 Outpatient R JAZIEL [facility] [id number] Univers 10:00:00 10:00:00 NEREIDA pierre [facility] 2022-09-21 2022-09-21 As400 Programmer Analyst Lab, Ang - Db [facility] 1.2.840.1 14 [id number] Univers 10:00:00 10:00:00 Visit Neerida Sheriff [facility] 350.1.13.10 ity of [place] 4.2.7.2.686 Frankie as JAVIER?BLEA [id number] [facility] [address] MEDICAL OFFICE [facility] 2022-09-21 2022-09-21 Office [facility] 1.2.840.114 [id number] Univers 09:45:00 10:00:00 Visit [facility] 350.1.13.10 it y of [place] 4.2.7.2.686 Frankie as JAVIER?BLEA [id number] [address] OFFICE [facility] 2022-09-18 2022-09-18 Refill [facility] 1.2.840.114 [id number] 70 Univers 00:00:00 00:00:00 [facility] 350.1.13.10 it y of [place] 4.2.7.2.686 Frankie as JAVIER?BLEA [id number] [address] OFFICE [facility] 2022-09-17 2022-09-17 Refmaddie [facility] 1.2.840.114 [id number] 83 Univers 00:00:00 00:00:00 [facility] 350.1.13.10 it y of [place] 4.2.7.2.686 Frankie as JAVIER?BLEA [id number] [address] OFFICE [facility] 2022-09-07 2022-09-07 Refmaddie [facility] 1.2.840.114 [id number] 12 Univers 00:00:00 00:00:00 [place] [facility] 350.1.13.10 it y of [place] 4.2.7.2.686 Frankie as JAVIER?BLEA [id number] [address] OFFICE [facility] 2022-09-03 2022-09-03 Refmaddie [facility] 1.2.840.114 [id number] Univers 00:00:00 00:00:00 Nereida HEALTH 350.1.13.10 it y of [place] 4.2.7.2.686 Frankie as JAVIER?BLEA [id number] Nm dicjessica MARINOEY 044 [facility] OFFICE [facility] 2022-09-03 2022-09-03 Rohith [facility] 1.2.840.114 [id number] Univers 00:00:00 00:00:00 Nereida HEALTH 350.1.13.10 it y of [place] 4.2.7.2.686 Frankie as JAVIER?BLEA [id number] [address] OFFICE [facility] 2022-08-28 2022-08-28 Outpatient [facility] [id number] Univers 08:05:50 23:59:00 BLANCHE pierre [facility] 2022-08-28 2022-08-28 [facility] 1.2.840.114 [id number] Univers 08:05:50 23:59:00 Encounter Blanche LEE 350.1.13.10 ity of [facility] 4.2.7.2.686 [place] [id number] [address] 2022-08-28 2022-08-28 As400 Programmer Analyst Royal, Jenniffer Lab Main [facility] 1.2.8 40.114 [id number] Univers 08:15:00 08:30:00 Visit Blanche Osorio 350.1.13.10 ity of [facility] 4.2.7.2.686 [place] [facility] [id number] Nm mary [address] 2022-08-28 2022-08-28 Telephone [facility] 1.2.606.276 [id number] 8588 Univers 00:00:00 00:00:00 Blanche MIR 350.1.13.10 it y of [place] 4.2.7.2.686 Frankie as JAVIER?BLEA [id number] Nm dicjessica GOEL 044 [facility] OFFICE [facility] 2022-08-26 2022-08-26 Outpatient R [facility] [id number] Univers 00:00:00 00:00:00 BLANCHE pierre [facility] 2022-08-25 2022-08-25 Outpatient R JO [facility] [id number] Univers 10:00:00 11:23:37 BLANCHE pierre [facility] 2022-08-25 2022-08-25 Office Jo [facility] 1.2.840.114 [id number] Univers 10:00:00 11:23:37 Visit Blanche [facility] 350.1.13.10 it y of [place] 4.2.7.2.686 Frankie as JAVIER?BLEA [id number] [address] OFFICE [facility] 2022-08-24 2022-08-24 Telephone Jo [facility] 1.2.989.852 [id number] 9142 [facility] 00:00:00 00:00:00 Blanche HEALTH 350.1.13.10 it y of [place] 4.2.7.2.686 Frankie as JAVIER?BLEA [id number] [address] OFFICE [facility] 2022-08-21 2022-08-21 Refmaddie [facility] 1.2.840.114 [id number] Univers 00:00:00 00:00:00 Nereida HEALTH 350.1.13.10 it y of [place] 4.2.7.2.686 Frankie as JAVIER?BLEA [id number] [address] OFFICE [facility] 2022-08-18 2022-08-18 Rohith [facility] 1.2.840.114 [id number] Univers 00:00:00 00:00:00 Nereida HEALTH 350.1.13.10 it y of [place] 4.2.7.2.686 Frankie as JAVIER?BLEA [id number] [address] OFFICE [facility] 2022-08-06 2022-08-06 Rohith [facility] 1.2.840.114 [id number] Univers 00:00:00 00:00:00 Nereida HEALTH 350.1.13.10 it y of [place] 4.2.7.2.686 Frankie as JAVIER?BLEA [id number] [address] MEDICAL OFFICE [facility] 2022-08-05 2022-08-05 Refmaddie [facility] 1.2.840.114 [id number] Univers 00:00:00 00:00:00 Nereida HEALTH 350.1.13.10 it y of [place] 4.2.7.2.686 Frankie as JAVIER?BLEA [id number] [address] OFFICE [facility] 2022-07-30 2022-07-30 Rohith [facility] 1.2.840.114 [id number] 77 Univers 00:00:00 00:00:00 Nereida HEALTH 350.1.13.10 it y of [place] 4.2.7.2.686 Frankie as JAVIER?BLEA [id number] [address] 2022-07-28 2022-07-28 [facility] Angelica MATHIS [facility] [id number] [facility] 11:11:47 23:59:00 2022-07-28 2022-07-28 [facility] Angelica Mathis [facility] [id number] [id number] [facility] 11:11:47 23:59:00 [facility] 2022-07-26 2022-07-26 [facility] 1.2.840.114 [id number] Univers 00:00:00 00:00:00 Nereida HEALTH 350.1.13.10 it y of [place] 4.2.7.2.686 Frankie as JAVIER?BLEA [id number] [address] OFFICE [facility] 2022-07-21 2022-07-21 Rohiht [facility] 1.2.840.114 [id number] 57 Univers 00:00:00 00:00:00 Nereida HEALTH 350.1.13.10 it y of [place] 4.2.7.2.686 Frankie as JAVIER?BLEA [id number] [address] OFFICE [facility] 2022-07-19 2022-07-19 Andimaddie [facility] 1.2.840.114 [id number] Univers 00:00:00 00:00:00 Nereida HEALTH 350.1.13.10 it y of [place] 4.2.7.2.686 Frankie as JAVIER?BLEA [id number] Nm mary MAR[address] OFFICE [facility] 2022-07-09 2022-07-09 Rohith [facility] 1.2.840.114 [id number] Univers 00:00:00 00:00:00 Nereida HEALTH 350.1.13.10 it y of [place] 4.2.7.2.686 Frankie as JAVIER?BLEA [id number] [address] OFFICE [facility] 2022-07-08 2022-07-08 Outside Angelica Mathis [facility] [id number] 34409 [facility] 00:00:00 00:00:00 [facility] 2022-07-04 2022-07-04 Rohith [facility] 1.2.840.114 [id number] Univers 00:00:00 00:00:00 Nereida HEALTH 350.1.13.10 it y of [place] 4.2.7.2.686 Frankie as JAVIER?BLEA [id number] [address] 2022-06-30 2022-06-30 Rohith [facility] 1.2.840.114 [id number] 74 Univers 00:00:00 00:00:00 [place] [facility] 350.1.13.10 it y of [place] 4.2.7.2.686 Frankie as JAVIER?BLEA [id number] [address] 2022-06-23 2022-06-23 Outpatient Leona CALERO [facility] [id number] Univers 09:00:00 09:00:00 [place]ER[place] ignacio of [facility] 2022-06-21 2022-06-21 Rohith [facility] 1.2.840.114 [id number] Univers 00:00:00 00:00:00 [place] [facility] 350.1.13.10 it y of [place] 4.2.7.2.686 Frankie as JAVIER?BLEA [id number] [address] OFFICE [facility] 2022-06-17 2022-06-17 Outpatient Leona SHERIFF [facility] [id number] Univers 10:00:00 10:00:00 NEREIDA ity [facility] 2022-06-08 2022-06-08 Rohith [facility] 1.2.840.114 [id number] Univers 00:00:00 00:00:00 Nereida HEALTH 350.1.13.10 it y of [place] 4.2.7.2.686 Frankie as JAVIER?BLEA [id number] [address] OFFICE [facility] 2022-06-08 2022-06-08 [facility] 1.2.840.114 [id number] Univers 00:00:00 00:00:00 Nereida HEALTH 350.1.13.10 it y of [place] 4.2.7.2.686 Frankie as JAVIER?BLEA [id number] [address] 2022-06-03 2022-06-03 [facility] 1.2.840.114 [id number] Univers 00:00:00 00:00:00 Nereida HEALTH 350.1.13.10 it y of [place] 4.2.7.2.686 Frankie as JAVIER?BLEA [id number] [address] OFFICE [facility] 2022-06-03 2022-06-03 [facility] 1.2.840.114 [id number] 74 Univers 00:00:00 00:00:00 Nereida HEALTH 350.1.13.10 it y of [place] 4.2.7.2.686 Frankie as JAVIER?BLEA [id number] [address] OFFICE [facility] 2022-05-17 2022-05-17 [facility] 1.2.840.114 [id number] Univers 00:00:00 00:00:00 Nereida HEALTH 350.1.13.10 it y of [place] 4.2.7.2.686 Frankie as JAVIER?BLEA [id number] [address] OFFICE [facility] 2022-05-11 2022-05-11 [facility] 1.2.840.114 [id number] Univers 00:00:00 00:00:00 Nereida HEALTH 350.1.13.10 it y of [place] 4.2.7.2.686 Frankie as JAVIER?BLEA [id number] [address] MEDICAL OFFICE [facility] 2022-04-08 2022-04-08 Outpatient Eri VFP [facility] [address] [place] [address] 00:00:00 00:00:00 [id number] Family Practic e 2022-04-08 2022-04-08 Refmaddie [facility] 1.2.840.114 [id number] Univers 00:00:00 00:00:00 [facility] 350.1.13.10 it y of [place] 4.2.7.2.686 Frankie as JAVIER?BLEA [phone] [address] MEDICAL OFFICE [facility] 2022-03-31 2022-03-31 [facility] 1.2.840.114 [id number] Univers 00:00:00 00:00:00 [place] [id number] it [facility] 4.2.7.2.686 Frankie as JAVIER?BLEA [phone] [address] OFFICE [facility] 2022-03-18 2022-03-18 Outpatient Leona [facility] [id number] Univers 09:30:00 09:45:06 NEREIDA pierre [facility] 2022-03-18 2022-03-18 [facility] 1.2.840.114 [id number] Univers 09:30:00 09:45:00 Visit [facility] 350.1.13.10 it y of [place] 4.2.7.2.686 Frankie as JAVIER?BLEA [phone] [address] OFFICE [facility] 2022-03-18 2022-03-18 Outpatient Leona [facility]ERIFF [facility] [id number] Univers 09:30:00 09:30:00 NEREIDA ithenri [facility] 2022 2022 Refmaddie [facility] 1.2.840.114 [id number] Univers 00:00:00 00:00:00 [facility] 350.1.13.10 it y of [place] 4.2.7.2.686 Frankie as JAVIER?BLEA [phone] Nm mary GOEL [address] [place] [address] OFFICE [facility] 2022-03-13 2022-03-13 [facility]ith [facility] 1.2.840.114 [id number] Univers 00:00:00 00:00:00 [facility] 350.1.13.10 it y of [place] 4.2.7.2.686 Frankie as JAVIER?BLEA [id number] Nm mary GOEL [address] [place] [address] OFFICE [facility] 2022-03-11 2022-03-11 [facility] 1.2.840.114 [id number] Univers 00:00:00 00:00:00 [facility] 350.1.13.10 it y of [place] 4.2.7.2.686 Frankie as JAVIER?BLEA [id number] Nm mary GOEL [address] [place] [address] OFFICE [facility] 2022-03-09 2022-03-09 [facility] 1.2.840.114 [id number] Univers 00:00:00 00:00:00 [facility] 350.1.13.10 it y of [place] 4.2.7.2.686 Frankie as JAVIER?BLEA [phone] Nm mary GOEL [address] [place] [address] OFFICE [facility] 2022-03-05 2022-03-05 [facility] 1.2.840.114 [id number] Univers 00:00:00 00:00:00 [facility] 350.1.13.10 it y of [place] 4.2.7.2.686 Frankie as JAVIER?BLEA [id number] Nm mary GOEL [address] [place] [address] OFFICE [facility] 2022-03-02 2022-03-02 [facility] 1.2.840.114 [id number] Univers 00:00:00 00:00:00 [facility] 350.1.13.10 it y of [place] 4.2.7.2.686 Frankie as JAVIER?BLEA [id number] Nm mary MARINO[address] OFFICE [facility] 2022-03-02 2022-03-02 [facility] 1.2.840.114 [id number] Univers 00:00:00 00:00:00 [facility] 350.1.13.10 it y of [place] 4.2.7.2.686 Frankie as JAVIER?BLEA [phone] [address] OFFICE [facility] 2022-02-05 2022-02-05 Telephone [facility] 1.2.108.252 [id number] Univers 00:00:00 00:00:00 [facility] 350.1.13.10 it y of [place] 4.2.7.2.686 Frankie as JAVIER?BLEA [id number] [address] 2022-01-30 2022-01-30 Refill [facility] 1.2.840.114 [id number] Univers 00:00:00 00:00:00 [facility] 350.1.13.10 it y of [place] 4.2.7.2.686 Frankie as PROFESSIO [phone] [address] 2022-01-25 2022-01-25 Emergency X [facility] ERT [id number] Univers 12:57:00 16:23:00 JACQUELIN ithenri of [facility] 2022-01-25 2022-01-25 Emergency [facility] 1.2.777.614 [id number] Univers 12:57:00 16:23:00 Jacquelin LEE 350.1.13.10 [facility]y [facility] 4.2.7.2.[place] [phone] [address] 2022-01-22 2022-01-22 Outpatient Aguilar_M VFP VFP [id number] [facility]20 [facility] 08:43:00 08:43:00 [id number] Family Practic e 2022-01-14 2022-01-14 [facility] 1.2.840.114 [id number] Univers 00:00:00 00:00:00 [facility] 350.1.13.10 it y of [place] 4.2.7.2.686 Frankie as PROFESSIO [phone] [address] 2022-01-09 2022-01-09 [facility] [id number] 07:39:00 14:08:00 Encounter [facility] 2022-01-09 2022-01-09 Outpatient PETTY RUVALCABA Surgery [id number] [facility] 07:39:00 14:08:00 DEWAYNE 2022-01-09 2022-01-09 Anesthesia Adam Sierrain [facility] [id number] [facility] 11:08:00 12:56:00 Event India Keating Valdez [facility] 2022-01-09 2022-01-09 Surgery [facility] [id number] 11:30:00 12:50:00 [facility] 2022-01-09 2022-01-09 Travel [facility] [id number] [facility] 00:00:00 00:00:00 [facility] 2022-01-08 2022-01-08 Outpatient KYLAH [facility] SLE [id number] SLE 12:18:15 23:59:00 2022-01-08 2022-01-08 [facility] [id number] 11:55:00 23:59:00 Encounter [facility] 2022-01-08 2022-01-08 Travel [facility] [id number] [facility] 00:00:00 00:00:00 [facility] 2021-12-18 2021-12-18 Office [facility] 1.2.840.114 [id number] Univers 15:45:00 16:15:00 Visit [facility] 350.1.13.10 y [facility] 4.2.7.2.686 Frankie as JAVIER?BLEA [phone] [address] MEDICAL OFFICE BUILDING 2021-12-18 2021-12-18 Outpatient Leona CALERO [facility] [id number] Univers 15:45:00 15:45:00 [facility] 2021-12-18 2021-12-18 [facility]patient [facility] [id number] Univers 15:45:00 15:45:00 [facility] 2021-12-16 2021-12-16 Outpatient Leona [facility] [id number] Univers 16:00:00 16:00:00 [facility] 2021-12-16 2021-12-16 Orders Doctor OLGA 1.2.840.114 [id number] Univers 00:00:00 00:00:00 Only Unassigned, STEVE 350.1.13.10 ity of [facility] 4.2.7.2.686 Frankie as [phone] [address] 2021-12-15 2021-12-15 [facility] 1.2.840.114 [id number] Univers 00:00:00 00:00:00 [facility] 350.1.13.10 it y of [place] 4.2.7.2.686 Frankie as PROFESSIO [phone] Nm maune YOVANI [address] [place] [address] OFFICE BUILDING ONE 2021-12-08 2021-12-08 Refmaddie [facility] 1.2.840.114 [id number] Univers 00:00:00 00:00:00 [facility] 350.1.13.10 it y of [place] 4.2.7.2.686 Frankie as JAVIER?BLEA [phone] Nm mary GOEL [address] [place] [address] OFFICE BUILDING 2021-12-04 2021-12-04 [facility] [id number] 08:54:00 10:51:00 Encounter [facility] 2021-12-04 2021-12-04 Outpatient [facility] Surgery [id number] SLE 08:54:00 10:51:00 [facility] 2021-12-04 2021-12-04 Surgery [facility] [id number] 09:00:00 10:30:00 [facility] 2021-11-19 2021-11-19 Gala Sheriff [facility] 1.2.318.328 [id number] Univers 00:00:00 00:00:00 [facility] 350.1.13.10 it y of [place] 4.2.7.2.686 Frankie as JAVIER?BLEA [phone] Nm mary GOEL [address] [place] [address] OFFICE [facility] 2021-11-15 2021-11-15 ALIYA Carvajal 1.2.840.114 [id number] Univers 00:00:00 00:00:00 [facility] 350.1.13.10 it y of [place] 4.2.7.2.686 Frankie as PROFESSIO [phone] Nm mary PINA [address] [place] [address] ONE 2021-11-06 2021-11-06 Rohith Sheriff [facility] 1.2.840.114 [id number] Univers 00:00:00 00:00:00 [facility] 350.1.13.10 it y of [place] 4.2.7.2.686 Frankie as JAVIER?BLEA [phone] Nm mary MARINO[address] 2021-11-01 2021-11-01 Outpatient Aguilar_M VFP VFP [id number] [place] [address] 02:58:00 02:58:00 [id number] Family Practic e 2021-10-27 2021-10-27 ALIYA Carvajal 1.2.840.114 [id number] 76 Univers 00:00:00 00:00:00 [facility] 350.1.13.10 it y of [place] 4.2.7.2.686 Frankie as PROFESSIO [phone] Nm mary PINA [address] [place] [address] ONE 2021-10-16 2021-10-16 Rohith Sheriff [facility] 1.2.840.114 [id number] Univers 00:00:00 00:00:00 [facility] 350.1.13.10 it y of [place] 4.2.7.2.686 Frankie as PROFESSIO [phone] Nm maune YOVANI [address] [place] [address] ONE 2021-10-11 2021-10-11 Outpatient Aguilar_M VFP VFP [id number] [facility]20 [facility] 06:17:00 06:17:00 [id number] Family Practic e 2021-10-07 2021-10-07 Rohith Sheriff [facility] 1.2.840.114 [id number] Univers 00:00:00 00:00:00 [facility] 350.1.13.10 it y of [place] 4.2.7.2.686 Frankie as JAVIER?BLEA [phone] [facility] ANTONIO[address] OFFICE [facility] 2021-10-03 2021-10-03 Outpatient Agjoana_Napoleon VFP VFP [id number] [facility] 05:34:00 05:34:00 [id number] Family Practic e 2021-09-29 2021-09-29 Refmaddie [facility] 1.2.846.531 [id number] Univers 00:00:00 00:00:00 [facility] 350.1.13.10 it y of SURGICAL 4.2.7.2.686 Frankie as SPECIALTI [phone] [address] 2021-09-18 2021-09-18 Outpatient Le[facility] [id number] Univers 10:15:00 10:15:00 [facility] 2021-09-18 2021-09-18 Office [facility] 1.2.840.114 [id number] Univers 08:40:07 08:55:07 Visit [facility] 350.1.13.10 it y of [place] 4.2.7.2.686 Frankie as JAVIER?BLEA [phone] [address] OFFICE [facility] 2021-09-18 2021-09-18 Outpatient Leona [facility] [id number] Univers 10:15:00 08:52:38 [facility] 2021-09-08 2021-09-08 [facility] 1.2.840.114 [id number] Univers 00:00:00 00:00:00 [facility] 350.1.13.10 [facility] 4.2.7.2.686 Frankie as JAVIER?BLEA [phone] [address] OFFICE [facility] 2021-09-04 2021-09-04 Refmaddie Sheriff[facility] 1.2.840.114 [id number] Univers 00:00:00 00:00:00 [facility] 350.1.13.10 it y of [place] 4.2.7.2.686 Frankie as PROFESSIO [phone] [facility] NAL [address] [place] [address] OFFICE BUILDING ONE 2021-08-28 2021-08-28 [facility] 1.2.840.114 [id number] Univers 00:00:00 00:00:00 [facility] 350.1.13.10 it y of [place] 4.2.7.2.686 Frankie as PROFESSIO [phone] [address] OFFICE BUILDING ONE 2021-08-22 2021-08-22 [facility] 1.2.840.114 [id number] 73 Univers 00:00:00 00:00:00 [facility] 350.1.13.10 it y of [place] 4.2.7.2.686 Frankie as Professio [phone] [address] Office [facility] One 2021-08-21 2021-08-21 Yousuf Acosta_Napoleon [facility] [id number] [facility] 00:00:00 00:00:00 [facility] [id number] Family [facility] - Pract brando MD: [address]. VM_HOU_Shaye [address] [address] , Ph. 2021-08-20 2021-08-20 Outpatient Lm_Leona [facility] [id number] 04:30:00 04:30:00 [id number] [facility] 2021-08-20 2021-08-20 Telephone [facility] 1.2.234.020 [id number] Univers 00:00:00 00:00:00 [facility] 350.1.13.10 it y of [place] 4.2.7.2.686 Frankie as Javier?Blea [phone] Nm mary goel [address] [place] [address] Office Building 2021-08-07 2021-08-07 Refeast [facility] 1.2.840.114 [id number] Univers 00:00:00 00:00:00 [facility] 350.1.13.10 it y of [place] 4.2.7.2.686 Frankie as Javier?Blea [phone] [facility] antonio[address] Office [facility] 2021-07-14 2021-07-14 Rohith Sheriff [facility] 1.2.840.114 [id number] Univers 00:00:00 00:00:00 [facility] 350.1.13.10 it y of [place] 4.2.7.2.686 Frankie as Javier?Blea [phone] [facility] antonio[address] 2021-07-11 2021-07-11 Imm/Inj Nurse, Adc Pob Immunization [facility] 1.2.840.114 [id number] Univers 10:44:02 10:44:14 Visit Miguel Patel 350.1.13 .10 ity of [place]2.7.2.[place] Profess[place] [phone] [address] 2021-07-11 2021-07-11 Outpatient R IRAIS [facility] [id number] Univers 10:30:00 10:30:00 MIGUEL pierre [facility] 2021-07-10 2021-07-10 Rohith [facility] 1.2.840.114 [id number] Univers 00:00:00 00:00:00 [facility] 350.1.13.10 it y of [place] 4.2.7.2.686 Frankie as Javier?Blea [phone] Nm maune antonio[address] 2021-06-29 2021-06-29 Rohith [facility] 1.2.840.114 [id number] 70 Univers 00:00:00 00:00:00 [facility] 350.1.13.10 it y of [place] 4.2.7.2.686 Frankie as Professio [phone] [address] One 2021-06-24 2021-06-24 Rohith [facility] 1.2.840.114 [id number] Univers 00:00:00 00:00:00 [facility] 350.1.13.10 it y of [place] 4.2.7.2.686 Frankie as Professio [phone] Nm dical nal [address] [place] [address] Office [facility] One 2021-06-10 2021-06-10 Refmaddie SheriffG[facility] 1.2.840.114 [id number] 93 Univers 00:00:00 00:00:00 [facility] 350.1.13.10 it y of [place] 4.2.7.2.686 Frankie as Professio [phone] [facility] nal [address] [place] [address] One 2021-06-09 2021-06-09 Refmaddie SheriffG[facility] 1.2.840.114 [id number] Univers 00:00:00 00:00:00 [facility] 350.1.13.10 it y of [place] 4.2.7.2.686 Frankie as Professio [phone] [facility] nal [address] [place] [address] One 2021-06-09 2021-06-09 Refmaddie [facility] 1.2.840.114 [id number] 44 Univers 00:00:00 00:00:00 [facility] 350.1.13.10 it y of [place] 4.2.7.2.686 Frankie as Professio [phone] [facility] nal [address] [place] [address] One 2021-06-01 2021-06-01 Refmaddie [facility] 1.2.840.114 [id number] 21 Univers 00:00:00 00:00:00 [facility] 350.1.13.10 it y of [place] 4.2.7.2.686 Frankie as Professio [phone] [facility] nal [address] [place] [address] Office [facility] One 2021-05-15 2021-05-[address] [facility] 1.2.840.114 [id number] Univers 00:00:00 00:00:00 Outreach [facility] 350.1.13.10 i ty of [place] 4.2.7.2.686 Frankie as Professio [phone] [facility] nal [address] [place] [address] One 2021-05-14 2021-05-14 Nurse [facility], Medicare Wellness [facility] 1.2.840.114 [id number] Univers 09:04:42 10:32:18 Visit Nereida Sheriff 350.1.13.10 ity of [place] 4.2.7.2.686 Frankie as Professio [phone] [address] One 2021-05-14 2021-05-14 Office [facility] 1.2.840.114 [id number] Univers 08:58:25 09:13:25 Visit [facility] 350.1.13.10 it y of [place] 4.2.7.2.686 Frankie as Professio [phone] [address] One 2021-05-14 2021-05-14 Outpatient Leona [facility] [id number] Univers 09:00:00 09:00:00 NEREIDA pierre [facility] 2021-05-12 2021-05-12 Refmaddie [facility] 1.2.840.114 [id number] Univers 00:00:00 00:00:00 [facility] 350.1.13.10 it y of [place] 4.2.7.2.686 Frankie as Professio [phone] [address] One 2021-04-30 2021-04-30 Outpatient R ISIAH [facility] [id number] Univers 13:15:00 13:15:00 DUSTIN pierre [facility] 2021-04-23 2021-04-23 Outpatient Leona [facility] [id number] Univers 00:00:00 00:00:00 NEREIDA pierre [facility] 2021-04-14 2021-04-14 Refmaddie [facility] 1.2.840.114 [id number] Univers 00:00:00 00:00:00 [facility] 350.1.13.10 it y of [place] 4.2.7.2.686 Frankie as Professio [phone] [address] One 2021-04-03 2021-04-03 Hammad Chaney 1.2.840.114 [id number] Univers 00:00:00 00:00:00 Management , Mary Draper 350.1.13.10 ity of [place]2.7.2.[place] [phone] [facility] [address] [place] 2021-03-26 2021-03-26 Rohith [facility] 1.2.840.114 [id number] Univers 00:00:00 00:00:00 [facility] 350.1.13.10 it y of [place] 4.2.7.2.686 Frankie as Professio [phone] [address] Office [facility] One 2021-03-26 2021-03-26 Rohith [facility] 1.2.840.114 [id number] 00:00:00 00:00:00 [facility] 350.1.13.10 [place] 4.2.7.2.686 Professio [phone] [address] One 2021-03-25 2021-03-25 Rohith [facility] 1.2.840.114 [id number] 96 Univers 00:00:00 00:00:00 [facility] 350.1.13.10 it y of [place] 4.2.7.2.686 Frankie as Professio [phone] Nm dicne nal [address] [place] [address] Office [facility] One 2021-03-25 2021-03-25 Rohith [facility] 1.2.840.114 [id number] 96 00:00:00 00:00:00 [facility] 350.1.13.10 [place] 4.2.7.2.686 Professio [phone] [place] [address] Office [facility] One 2021-03-18 2021-03-18 Gala [facility] 1.2.446.922 [id number] Univers 00:00:00 00:00:00 Nereida Clara 350.1.13.10 i ty of [place] 4[place]2.7.2.686 [place] Profess[place] [phone] Nm dic[address] 2021-03-18 2021-03-18 Gala [facility] 1.2.338.287 [id number] 00:00:00 00:00:00 Nereida Lee 350.1.13.10 [place] 4.2.7.2.686 Professio [phone] [address] 2021-03-13 2021-03-13 Telephone [facility] 1.2.276.223 [id number] Univers 00:00:00 00:00:00 [facility] 350.1.13.10 it y of [place] 4.2.7.2.686 Frankie as Professio [phone] [address] Office [facility] One 2021-03-13 2021-03-13 Gala [facility] 1.2.145.157 [id number] 00:00:00 00:00:00 [facility] 350.1.13.10 [place] 4.2.7.2.686 Professio [phone] [address] One 2021-03-10 2021-03-10 Outpatient Leona BRAND [facility] [id number] Univers 12:00:00 12:00:00 AMANDA henri [facility] 2021-03-10 2021-03-10 Urgent Provider, [facility] 1.2.840.114 [id number] Univers 11:16:36 11:36:36 [facility] 350.1.13.10 ity of [place] 4.2.7.2.686 Frankie as Professio [phone] [address] One 2021-03-10 2021-03-10 Refmaddie [facility] 1.2.840.114 [id number] Univers 00:00:00 00:00:00 [facility] 350.1.13.10 it y of [place] 4.2.7.2.686 Frankie as Professio [phone] [address] Office [facility] One 2021-02-25 2021-02-25 Telephone [facility] 1.2.636.102 [id number] Univers 00:00:00 00:00:00 [facility] 350.1.13.10 it y of [place] 4.2.7.2.686 Frankie as Professio [phone] [address] Office [facility] One 2021-02-20 2021-02-20 Refmaddie [facility] 1.2.840.114 [id number] Univers 00:00:00 00:00:00 [facility] 350.1.13.10 it y of [place] 4.2.7.2.686 Frankie as Professio [phone] [address] Office Building One 2021-02-12 2021-02-12 Office Jaziel [facility] 1.2.840.114 [id number] Univers 09:00:39 09:22:35 Visit [facility] 350.1.13.10 it y of [place] 4.2.7.2.686 Frankie as Professio [phone] [address] Office Building One 2021-02-12 2021-02-12 Outpatient R JAZIEL [facility] [id number] Univers 09:00:00 09:00:00 NEREIDA ity of [facility] 2021-02-12 2021-02-12 Orders Doctor OLGA 1.2.840.114 [id number] Univers 00:00:00 00:00:00 Only Unassigned, STEVE 350.1.13.10 ity of [place] [facility] 4.2.7.2.686 Frankie as [phone] [address] 2021-02-10 2021-02-10 Refill [facility] 1.2.840.114 [id number] Univers 00:00:00 00:00:00 [facility] 350.1.13.10 it y of [place] 4.2.7.2.686 Frankie as Professio [phone] [address] Office Building One 2021-01-06 2021-01-06 Telephone [facility] 1.2.787.828 [id number] Univers 00:00:00 00:00:00 [facility] 350.1.13.10 it y of [place] 4.2.7.2.686 Frankie as Professio [phone] [address] Office Building One 2021-01-06 2021-01-06 Telephone [facility] 1.2.751.401 [id number] Univers 00:00:00 00:00:00 [facility] 350.1.13.10 it y of [place] 4.2.7.2.686 Frankie as Professio [phone] Nm dical nal [address] [place] [address] Office Building One 2021-01-01 2021-01-01 Outpatient Loena [facility] [id number] Univers 15:20:00 15:20:00 PABLO [facility] 2020-12-31 2020-12-31 Outpatient Leona [facility] [id number] Univers 15:50:00 15:50:00 PABLO [facility] 2020-12-12 2020-12-12 Refmaddie [facility] 1.2.840.114 [id number] Univers 00:00:00 00:00:00 [facility] 350.1.13.10 it y of [place] 4.2.7.2.686 Frankie as Professio [phone] Nm dical nal [address] [place] [address] Office [facility] One 2020-12-11 2020-12-11 Refmaddie [facility] 1.2.840.114 [id number] Univers 00:00:00 00:00:00 [facility] 350.1.13.10 it y of [place] 4.2.7.2.686 Frankie as Professio [phone] Nm dicne nal [address] [place] [address] Office Building One 2020-12-03 2020-12-03 Outpatient Leona [facility] [id number] Univers 15:50:00 15:50:00 [facility] 2020-11-13 2020-11-13 Office Jaziel [facility] 1.2.840.114 [id number] Univers 08:46:00 09:20:33 Visit [facility] 350.1.13.10 it y of [place] 4.2.7.2.686 Frankie as Professio [phone] Nm dicne nal [address] [place] [address] Office Building One 2020-11-13 2020-11-13 Outpatient Leona JAZIEL [facility] [id number] Univers 09:00:00 09:00:00 [facility] 2020-11-11 2020-11-11 Refmaddie [facility] 1.2.840.114 [id number] Univers 00:00:00 00:00:00 Nereida Lee 350.1.13.10 i ty of [place]2.7.2.[place] Profess[place] [phone] [facility] nal [address] [place] [address] 2020-10-10 2020-10-10 Telephone [facility] 1.2.165.600 [id number] Univers 00:00:00 00:00:00 [facility] 350.1.13.10 it y of [place] 4.2.7.2.686 Frankie as Professio [phone] [facility] nal [address] [place] [address] Office [facility] One 2020-10-10 2020-10-10 Letter [facility] 1.2.840.114 [id number] Univers 00:00:00 00:00:00 (Out) [facility] 350.1.13.10 it y of [place] 4.2.7.2.686 Frankie as Professio [phone] [facility] nal [address] [place] [address] One 2020-10-10 2020-10-10 Refeast [facility] 1.2.840.114 [id number] Univers 00:00:00 00:00:00 [facility] 350.1.13.10 it y of [place] 4.2.7.2.686 Frankie as Professio [phone] [facility] nal [address] [place] [address] One 2020-10-09 2020-10-09 Refmaddie [facility] 1.2.840.114 [id number] Univers 00:00:00 00:00:00 [facility] 350.1.13.10 it y of [place] 4.2.7.2.686 Frankie as Professio [phone] [facility] nal [address] [place] [address] One 2020-10-08 2020-10-08 Refeast [facility] 1.2.840.114 [id number] Univers 00:00:00 00:00:00 [facility] 350.1.13.10 it y of [place] 4.2.7.2.686 Frankie as Professio [phone] [facility] nal [address] [place] [address] One 2020-10-04 2020-10-04 Zaina [facility]IN [facility] [id number] Univers 11:15:00 11:15:00 LUAN ity [facility] 2020-10-04 2020-10-04 Office [facility] 1.2.299.067 [id number] Univers 09:57:57 10:50:32 Visit Luan [facility] 350.1.13.10 it y of Surgical 4.2.7.2.686 Frankie as Specialti [phone] Nm dical es 198 [facility] 2020-09-11 2020-09-11 Refeast [facility] 1.2.840.114 [id number] Univers 00:00:00 00:00:00 [facility] 350.1.13.10 it y of [place] 4.2.7.2.686 Frankie as Professio [phone] Nm dical nal 044 [facility] 2020-09-02 2020-09-02 [facility] 1.2.840.114 [id number] Univers 00:00:00 00:00:00 [facility] 350.1.13.10 it y of [place] 4.2.7.2.686 Frankie as Professio [phone] Nm dical nal 044 [facility] 2020-08-26 2020-08-26 Outpatient R [facility] [id number] Univers 13:30:00 13:30:00 MOE pierre [facility] 2020-08-15 2020-08-15 Office [facility] 1.2.840.114 [id number] Univers 09:59:04 10:14:04 Visit Germain [facility] 350.1.13.10 it y of Surgical 4.2.7.2.686 Frankie as Specialti [phone] Nm dical es 198 [facility] 2020-08-15 2020-08-15 Outpatient R [facility] [id number] Univers 10:00:00 10:00:00 GERMAIN henri [facility] 2020-08-13 2020-08-13 Telephone [facility] 1.2.840.114 [id number] Univers 00:00:00 00:00:00 Luan [facility] 350.1.13.10 it y of Surgical 4.2.7.2.686 Frankie as Specialti [phone] Me dical es 198 [facility] 2020-08-12 2020-08-12 Office [facility] 1.2.840.114 [id number] Univers 09:06:31 09:21:31 Visit Nereida Mir [id number] it y of [place] 4.2.7.2.686 Frankie as Professio [phone] Me dical nal 044 [place] Office [facility] 2020-08-12 2020-08-12 [facility]patient [facility] [id number] Univers 09:00:00 09:00:00 NEREIDA pierre [facility] 2020-08-08 2020-08-08 [facility] [id number] Univers 14:52:25 15:06:19 Visit Luan Alejandre [facility] [id number] it y of Surgical [id number] Frankie as Specialti [phone] Nm dical es 198 [facility] 2020-08-08 2020-08-08 [facility] [id number] Univers 15:00:00 15:00:00 LUAN pierre [facility] 2020-08-05 2020-08-05 Emergency [facility] [id number] Univers 15:02:00 17:02:00 Brigida Lee 350.1.13.10 i [place].2.[place] [phone] [facility] [address] [place] 2020-08-05 2020-08-05 Orders Doctor OLGA 1.2.840.114 [id number] Univers 00:00:00 00:00:00 Only Unassigned, STEVE 350.1.13.10 ity of [place] [facility] 4.2.7.2.686 Frankie as [phone] [facility] 00[address] [place] 2020-08-01 2020-08-01 Office [facility] [id number] Univers 14:43:38 16:10:03 Visit Almita Hannaton 350.1.13.10 i [place] 4[place]7.2.[place] [phone] Nm dical nal 188 [facility] 2020-08-01 2020-08-01 Outpatient [facility] [id number] Univers 14:30:00 14:30:00 ALMITA [facility] 2020-07-29 2020-07-29 [facility] 1.2.840.114 [id number] Univers 00:00:00 00:00:00 [facility] 350.1.13.10 it y of [place] 4.2.7.2.686 Frankie as Professio [phone] [address] 2020-07-23 2020-07-23 [facility] [id number] Univers 14:15:00 14:15:00 ALMITA [facility] 2020-07-23 2020-07-23 [facility] 1.2.840.114 [id number] Univers 00:00:00 00:00:00 [facility] 350.1.13.10 it [place] 4.2.7.2.686 Frankei as Professio [phone] [address] 2020-07-22 2020-07-22 Outpatient R [facility] [id number] Univers 10:00:00 10:00:00 KEN [facility] 2020-07-15 2020-07-15 [facility] 1.2.840.114 [id number] Univers 00:00:00 00:00:00 [facility] 350.1.13.10 [place] 4.2.7.2.686 Frankie as Professio [phone] [address] 2020-06-26 2020-06-26 Andimaddie [facility] 1.2.840.114 [id number] Univers 00:00:00 00:00:00 [facility] 350.1.13.10 it [place] 4.2.7.2.686 Frankie as Professio [phone] [address] Office [facility] 2020-06-25 2020-06-25 Outpatient R [facility] [id number] Univers 13:30:00 13:30:00 WENTONG [facility] 2020-06-12 2020-06-12 Refmaddie [facility] 1.2.840.114 [id number] Univers 00:00:00 00:00:00 [facility] 350.1.13.10 it y of [place] 4.2.7.2.686 Frankie as Professio [phone] [address] Office [facility] 2020-06-12 2020-06-12 Telephone [facility] [id number] Univers 00:00:00 00:00:00 [facility] 350.1.13.10 [place] 4.2.7.2.686 Frankie as Professio [phone] [address] 2020-06-11 2020-06-11 Rohith [facility] 1.2.840.114 [id number] Univers 00:00:00 00:00:00 [facility] 350.1.13.10 [place] 4.2.7.2.686 [place]ie as Professio [phone] [address] 2020-06-05 2020-06-05 [facility]ith [facility] 1.2.840.114 [id number] Univers 00:00:00 00:00:00 Nereida Mir 350.1.13.10 it y of [place] 4.2.7.2.686 Frankie as Professio [phone] [address] 2020-05-28 2020-05-28 Gala [facility] [id number] Univers 00:00:00 00:00:00 Nereida [place] 350.1.13.10 i ty of [place] 4.2.7.2.686 [place] [phone] [address] 2020-05-13 2020-05-13 As400 Programmer Analyst Jenniffer Paige [facility] Main [facility] 1.2.8 40.114 [id number] Univers 14:52:09 15:07:09 Visit Drew Sheriffalex Lee 350.1.13.10 ity of [place] 4[place]2.7.2.[place] [phone] Nm mary nal 353 [facility] 2020-05-13 2020-05-13 Outpatient R JAZIEL [facility] [id number] Univers 14:30:00 14:30:00 NEREIDA pierre [facility] 2020-05-13 2020-05-13 Office [facility] 1.2.840.114 [id number] Univers 13:57:32 14:12:32 Visit Nereida Lee 350.1.13.10 i ty [place] 4.2.7.2.686 [place] [phone] Nm dical nal 044 [facility] 2020-05-09 2020-05-09 Refmaddie [facility] 1.2.840.114 [id number] Univers 00:00:00 00:00:00 [facility] 350.1.13.10 it y [place] 4.2.7.2.686 Frankie as Professio [phone] [facility] nal 044 [facility] 2020-04-10 2020-04-10 Refmaddie [facility] 1.2.840.114 [id number] Univers 00:00:00 00:00:00 [facility] 350.1.13.10 it y [place] 4.2.7.2.686 Frankie as Professio [phone] [facility] nal [address] [place] [address] Office [facility] 2020-03-13 2020-03-13 Telephone [facility] 1.2.830.286 [id number] Univers 00:00:00 00:00:00 Nereidaalex [place] 350.1.13.10 i ty [place] 4.2.7.2.686 [place] Profess[place] [phone] [facility] [address] [place] [address] 2020-03-11 2020-03-11 Refmaddie [facility] 1.2.840.114 [id number] Univers 00:00:00 00:00:00 [facility] 350.1.13.10 it y of [place] 4.2.7.2.686 Frankie as Professio [phone] [facility] nal [address] [place] [address] Office [facility] 2020-02-20 2020-02-20 Telemediccarlos RamirezGALLUP [facility] 1.2.840.114 [id number] Univers 08:07:16 16:58:17 ne Visit Travis Lee 350.1.13.10 ity of [place] 4.2.7.2.686 [place] [phone] [facility] 220 [facility] 2020-02-20 2020-02-20 Outpatient R JAMES [facility] [id number] Univers 15:00:00 15:00:00 TRAVIS pierre [facility] 2020-02-15 2020-02-15 Outpatient [facility] [id number] Univers 07:30:00 07:30:00 NEREIDA pierre [facility] 2020-02-15 2020-02-15 Telemedici [facility] 1.2.840.114 [id number] Univers 06:51:18 07:06:18 ne Visit Nereida Lee 350.1.13.10 ity of [place] 4.2.7.2.[place] [phone] [address] 2020-02-14 2020-02-14 Outpatient R [facility] [id number] Univers 07:00:00 07:00:00 NEREIDA pierre [facility] 2020-02-12 2020-02-12 Refmaddie SheriffG[facility] 1.2.840.114 [id number] Univers 00:00:00 00:00:00 [facility] 350.1.13.10 it y of [place] 4.2.7.2.686 Frankie as Professio [phone] [address] 2020-01-11 2020-01-11 Refill [facility] 1.2.840.114 [id number] Univers 00:00:00 00:00:00 [facility] 350.1.13.10 it y of [place] 4.2.7.2.686 Frankie as Professio [phone] [address] 2019-12-28 2019-12-28 Office [facility] 1.2.840.114 [id number] Univers 09:22:44 09:56:04 Visit [facility] 350.1.13.10 it y of [place] 4.2.7.2.686 Frankie as Professio [phone] [address] Office [facility] 2019-12-28 2019-12-28 Outpatient R JAZIEL [facility] [id number] Univers 09:30:00 09:30:00 NEREIDA pierre [facility] 2019-12-14 2019-12-14 Refmaddie SheriffG[facility] 1.2.840.114 [id number] Univers 00:00:00 00:00:00 [facility] 350.1.13.10 it y of [place] 4.2.7.2.686 Frankie as Professio [phone] [address] Office [facility] 2019-12-11 2019-12-11 Telephone [facility] 1.2.973.953 [id number] Univers 00:00:00 00:00:00 [facility] 350.1.13.10 it y of [place] 4.2.7.2.686 Frankie as Professio [phone] [address] Office [facility] 2019-12-02 2019-12-02 Refill [facility] 1.2.840.114 [id number] Univers 00:00:00 00:00:00 [facility] 350.1.13.10 it y [place] 4.2.7.2.686 Frnakie as Professio [phone] [address] Office [facility] 2019-11-15 2019-11-15 Office [facility] 1.2.840.114 [id number] Univers 06:58:39 07:13:39 Visit [facility] 350.1.13.10 it y of [place] 4.2.7.2.686 Frankie as Professio [phone] [address] Office [facility] 2019-10-27 2019-10-27 Outpatient Leona [facility] [id number] Univers 09:55:58 23:59:00 ZACARIAS ithenri [facility] 2019-07-20 2019-07-20 Refmaddie SheriffG[facility] 1.2.840.114 [id number] Univers 00:00:00 00:00:00 [facility] 350.1.13.10 it y of [place] 4.2.7.2.686 Frankie as Professio [phone] [address] One 2019-07-04 2019-07-04 Refmaddie SheriffG[facility] 1.2.840.114 [id number] Univers 00:00:00 00:00:00 [facility] 350.1.13.10 it y of [place] 4.2.7.2.686 Frankie as Professio [phone] [address] One 2019-06-28 2019-06-28 Office [facility] 1.2.840.114 [id number] Univers 09:34:17 10:06:56 Visit [facility] 350.1.13.10 it y of [place] 4.2.7.2.686 Frankie as Professio [phone] [address] One 2019-06-28 2019-06-28 Refmaddie SheriffG[facility] 1.2.840.114 [id number] Univers 00:00:00 00:00:00 [facility] 350.1.13.10 it y of [place] 4.2.7.2.686 Frankie as Professio [phone] [address] One 2019-06-21 2019-06-21 Refmaddie SheriffG[facility] 1.2.840.114 [id number] Univers 00:00:00 00:00:00 [facility] 350.1.13.10 it y of [place] 4.2.7.2.686 Frankie as Professio [phone] [address] One 2018-12-09 2018-12-09 Ambulatory nullFlavo MNA [id number] Memoria 20:45:00 20:45:00 Pre-Reg r Neurology 03 l Juan Tangier 2018-12-09 2018-12-09 Ambulatory nullFlavo MNA [id number] Memoria 20:45:00 20:45:00 Pre-Reg r Neurology 03 l Juan Seay 2018-12-09 2018-12-09 Outpatient MHIE MHIE [id number] Memoria 14:45:00 14:45:00 03 bonnie Seay 2018-12-09 2018-12-09 [facility] [id number] 14:45:00 14:45:00 John Daina Mcmanus 2018-07-26 2018-07-26 Outpatient MHIE MHIE [id number] Memoria 09:00:00 09:00:00 02 bonnie Seay 2018-07-26 2018-07-26 Outpatient MHIE MHIE [id number] Memoria 09:00:00 09:00:00 02 bonnie Tangier 2018-04-26 2018-04-26 Outpatient MHIE MHIE [id number] Memoria 08:30:00 08:30:00 01 bonnie [place] 2018-04-26 2018-04-26 Outpatient MHIE MHIE [id number] Memoria 08:30:00 08:30:00 01 l [place] 2018-04-04 2018-04-05 Day nullFlavo [facility] [id number] Memoria 17:57:00 04:59:00 Surgery r Tangier 02 Orthopedic [facility] 2018-04-04 2018-04-05 Day nullFlavo [facility] [id number] Memoria 17:57:00 04:59:00 Surgery r Dawood 02 l [facility] 2018-04-04 2018-04-04 Outpatient Kimberly Ng [facility] [id number] 12:57:00 23:59:00 Han 2018-03-30 2018-03-30 Outpatient MHIE MHIE [id number] Memoria 13:30:00 13:30:00 00 l [place] 2018-03-30 2018-03-30 Outpatient MHIE MHIE [id number] Memoria 13:30:00 13:30:00 00 l [place] 2018-03-21 2018-03-22 Day nullFlavo [facility] [id number] Memoria 19:01:00 04:59:00 Surgery r [place] 01 l [facility]opedic [facility] 2018-03-21 2018-03-22 Day nullFlavo [facility] [id number] Memoria 19:01:00 04:59:00 Surgery r [place] 01 l [facility] 2018-03-21 2018-03-21 Outpatient Kimberly Ng [facility] [id number] 14:01:00 23:59:00 Han 2015-11-08 2015-11-08 Bedded Marleneo [facility] [id number] Memoria 18:06:00 21:20:00 Outpatient r Dawood 00 l [place] 2015-11-08 2015-11-08 Bedded Marleneo [facility] [id number] Memoria 18:06:00 21:20:00 Outpatient r Dawood 00 l [place] 2015-11-08 2015-11-08 Outpatient Guerrero, SL SL [id number] 12:06:00 15:20:00 Sheilendra 00 [facility] 2015-10-24 2015-10-25 Outpt Diag nullFlavo [facility] [id number] Memoria 15:50:00 05:59:00 Services r Outpatient 00 l Imaging Dawood Leverett 2015-10-24 2015-10-25 Outpt Diag nullFlavo [facility] [id number] Memoria 15:50:00 05:59:00 Services r Outpatient 00 l Imaging Dawood [place] 2015-10-24 2015-10-24 Outpatient Guerrero, [facility] [id number] 09:50:00 23:59:00 Sheilendra 00 [facility] Results Test Description Test Time Test [...] given. Lab Interpretation (test Abnormal code = 80404-1) [facility] [id number] 18:11:00 Test Item Value Reference Range Interpretation [...] given. Lab Interpretation Abnormal (test code = 26051-5) [facility] [id number] 18:11:00 Test Item Value Reference Range Interpretation [...] given. Lab Interpretation Abnormal (test code = 05408-4) [facility] [id number] 18:11:00 Test Item Value Reference Range Interpretation [...] given. Lab Interpretation Abnormal (test code = 27126-5) [facility] Glucose [id number] 17:09:21 Test Item Value Reference Interpretation Comments [...] Capillary code = 9554) Performing Lab (test [facility] code = 38117) [facility] Cli nical Lab, [address] [facility] [place] [address]; Timber Poisoner: Margarita Jacob MD; Waived Point of Care Testing - Gabrielle aaron MD Lab Interpretation Abnormal (test code = 30192-1) [facility] Cancer [facility] Glucose [id number] 17:09:21 Test Item Value Reference Interpretation Comments Range POC Glucose (test 211 mg/dL 70-99 H Capillary blood code = 5651) samples, e.g. obtained by fingerstick, ma y have inaccurate resu lts in patients with decreased perip heral blood flow. All POC Glucose screen test results, includ ing critical values , must be interpreted and evaluated in e context of the patients clinical findi ngs. It is recommend ed to confirm any questionable te st results by core lab methodology. Nm thod description: Al l results are soraya sured using Electrochemistr y test methodology. Th e glucose in the sample mixes with the reagents on the test strip. The reac tion produces an cristine ctric current. The am ount of current prod uced is proportional to the glucose concentration i n the blood. PO Sample Type (test Capillary code = 9554) Performing Lab (test [facility] code = 86327) [facility] Cli nical Lab, [address] [facility] [place] [address]; Timber Poisoner: Margarita Jacob MD; Waived Point of Care Testing - Gabrielle aaron MD Lab Interpretation Abnormal (test code = 90592-8) [facility] Glucose [id number] 17:09:21 Test Item Value Reference Interpretation Comments [...] Capillary code = 9554) Performing Lab (test [facility] [place] code = 05146) [facility] Cli nical Lab, [address] [facility], [place] [address]; Timber Poisoner: Margarita Jacob MD; Waived Point of Care Testing - Gabrielle aaron MD Lab Interpretation Abnormal (test code = 29075-6) [facility] Glucose [id number] 17:09:21 Test Item Value Reference Interpretation Comments [...] Capillary code = 9554) Performing Lab (test [facility] Main [place] code = 72083) [facility] Cli nical Lab, [address], [place] [address]; Timber Poisoner: Margarita Jacob MD; Waived Point of Care Testing - Gabrielle aaron MD Lab Interpretation Abnormal (test code = 58579-3) [facility] CenterPhosph[facility] [id number] 12:26:50 Test Item Value Reference Range Interpretation Comments Phosphorus (test code = 2777-1) 4.3 mg/dL 2.5-4.5 [facility] CenterPh[facility] [id number] 12:26:50 Test Item Value Reference Range Interpretation Comments Phosphorus (test code = 2777-1) 4.3 mg/dL 2.5-4.5 [facility] Center[facility] [id number] 12:26:50 Test Item Value Reference Range Interpretation Comments Phosphorus (test code = 2777-1) 4.3 mg/dL 2.5-4.5 [facility] [id number] 12:26:50 Test Item Value Reference Range Interpretation Comments Phosphorus (test code = 2777-1) 4.3 mg/dL 2.5-4.5 [facility] Center[facility] [id number] 16:10:55 Test Item Value Reference Range Interpretation Comments Final Report (test code = 8488) No growth [facility] CenterBlood [id number] 16:10:55 Test Item Value Reference Range Interpretation Comments Final Report (test code = 8488) No growth [facility] [id number] 16:10:55 Test Item Value Reference Range Interpretation Comments Final Report (test code = 8488) No growth [facility] [id number] 16:10:55 Test Item Value Reference Range Interpretation Comments Final Report (test code = 8488) No growth [facility] CenterProcalcitonin2023-04-14 16:06:17 Test Item Value Reference Range Interpretation Comments Procalcitonin (test 0.38 ng/mL <=0.08 H Procalci tonin > 2.00 code = 70359-5) ng/mL: Proca lcitonin levels above 2. 00 [...] extended diluti on as it exceeds the land leases and rentals manager's recommended goldberg it. Caution should be exercised when interpreting agarwal ch values and done in conjunction wit clinical Avangate BVx t. Lab Interpretation Abnormal (test code = 13167-2) [facility] CenterProcalcitonin2023-04-14 16:06:17 Test Item Value Reference Range Interpretation Comments Procalcitonin (test 0.38 ng/mL <=0.08 H Procalci tonin > 2.00 code = 00785-4) ng/mL: Proca lcitonin levels above 2. 00 [...] extended diluti on as it exceeds the land leases and rentals manager's recommended goldberg it. Caution should be exercised when interpreting agarwal ch values and done in conjunction wit clinical contex t. Lab Interpretation Abnormal (test code = 85007-8) [facility] CenterProcalcitonin2023-04-14 16:06:17 Test Item Value Reference Range Interpretation Comments Procalcitonin (test 0.38 ng/mL <=0.08 H Procalci tonin > 2.00 code = 96054-4) ng/mL: Proca lcitonin levels above 2. 00 [...] extended diluti on as it exceeds the land leases and rentals manager's recommended goldberg it. Caution should be exercised when interpreting agarwal ch values and done in conjunction wit h clinical contex t. Lab Interpretation Abnormal (test code = 03761-0) [facility] CenterProcalcitonin2023-04-14 16:06:17 Test Item Value Reference Range Interpretation Comments Procalcitonin (test 0.38 ng/mL <=0.08 H Procalci tonin > 2.00 code = 49312-1) ng/mL: Proca lcitonin levels above 2. 00 [...] extended diluti on as it exceeds the land leases and rentals manager's recommended goldberg it. Caution should be exercised when interpreting agarwal ch values and done in conjunction wit h clinical contex t. Lab Interpretation Abnormal (test code = 73526-9) [facility] Add-On Test 2023-02-12 15:17:04 Test Item Value Reference Range Interpretation Comments Ordered (test code = 6568) Test Added Test Needed (test code = 7604) procalcitonin [facility] Laboratory Add-On Test 2023-02-12 15:17:04 Test Item Value Reference Range Interpretation Comments Ordered (test code = 6568) Test Added Test Needed (test code = 7604) procalcitonin [facility] Laboratory Add-On Test 2023-02-12 15:17:04 Test Item Value Reference Range Interpretation Comments Ordered (test code = 6568) Test Added Test Needed (test code = 7604) procalcitonin [facility] Laboratory Add-On Test 2023-02-12 15:17:04 Test Item Value Reference Range Interpretation Comments Ordered (test code = 6568) Test Added Test Needed (test code = 7604) procalcitonin [facility] CenterCreatine [id number] 12:16:45 Test Item Value Reference Range Interpretation Comments CK (test code = 2157-6) 125 U/L 26-192 [facility] CenterCreat[facility] [id number] 12:16:45 Test Item Value Reference Range Interpretation Comments CK (test code = 2157-6) 125 U/L 26192 [facility] Center[facility] [id number] 12:16:45 Test Item Value Reference Range Interpretation Comments CK (test code = 2157-6) 125 U/L 26-192 [facility] CenterCreat[facility] [id number] 12:16:45 Test Item Value Reference Range Interpretation Comments CK (test code = 2157-6) 125 U/L 26192 [facility] CenterHIV-1/2 Antigen and Antibodies, Fourth [id number] 07:28:44 Test Item Value Reference Range Interpretation Comments HIV Ag/Ab, NON-REACTIVE NON-REACTIVE HIV-1 antigen a nd 4TH Gen (test HIV-1/HIV-2 an tibodies were code = 42908) notdetected. T here is no laboratory evid [...] this purpose. For additional information please refer tohttp://FiveCubits/faq /WYU656(This link is being p rovided for informational/e ducational purposes only.) The performance of this assay has not been clinicallyvalid ated in patients less t go 2 years old. Lab test p erformed by:Lab Mnemonic : [employer] [facility] [id number] [place] [address]LPPWO Dillon MELÉNDEZ MD [facility] Cancer [place] Antigen and Antibodies, Fourth [id number] 07:28:44 Test Item Value Reference Range Interpretation Comments HIV Ag/Ab, NON-REACTIVE NON-REACTIVE HIV-1 antigen a nd 4TH Gen (test HIV-1/HIV-2 an tibodies were code = 39200) notdetected. T here is no laboratory evid [...] this purpose. For additional information please refer tohttp://Workpop.MOOVIA/faq /OGA586(This link is being p rovided for informational/e ducational purposes only.) The performance of this assay has not been clinicallyvalid ated in patients less t go 2 years old. Lab test p erformed by:Lab Mnemonic : [employer] [id number] [place] [address]VPJRIJAKE MELÉNDEZ MD [facility] CenterHIV-1/2 Antigen and Antibodies, Fourth [id number] 07:28:44 Test Item Value Reference Range Interpretation Comments HIV Ag/Ab, NON-REACTIVE NON-REACTIVE HIV-1 antigen a nd 4TH Gen (test HIV-1/HIV-2 an tibodies were code = 99255) notdetected. T here is no laboratory evid [...] general authorization f or the release of [facility] orother information is NOT sufficient for this purpose. For additional information please refer tohttp://educat ion.The 3Doodler.MOOVIA/faq /BUU824(This link is being p rovided for informational/e ducational purposes only.) The performance of this assay has not been clinicallyvalid ated in patients less t go 2 years old. Lab test p erformed by:Lab Mnemonic : [employer] [id number] [place] [address]JHHOOJAKE MELÉNDEZ MD [facility] CenterHIV-1/2 Antigen and Antibodies, Fourth [id number] 07:28:44 Test Item Value Reference Range Interpretation Comments HIV Ag/Ab, NON-REACTIVE NON-REACTIVE HIV-1 antigen a nd 4TH Gen (test HIV-1/HIV-2 an tibodies were code = 00189) notdetected. T here is no laboratory evid [...] purpose. For additional information please refer tohttp://educat ion.The 3Doodler.MOOVIA/faq /ODH300(This link is being p rovided for informational/e ducational purposes only.) The performance of this assay has not been clinicallyvalid ated in patients less t og 2 years old. Lab test p erformed by:Lab Mnemonic : [email or web address] [facility] [id number] [place] [address]TSBMT Dillon MELÉNDEZ MD [facility] CenterUrine [id number] 13:51:10 Test Item Value Reference Range Interpretation Comments Final Report (test code = 10 - 50,000 cfu/ml A 8488) Normal site isabel present.Generally of low significance.Correl ate with clinical data and culture history. Lab Interpretation (test Abnormal code = 21767-1) [facility] CenterUrine [id number] 13:51:10 Test Item Value Reference Range Interpretation Comments Final Report (test code = 10 - 50,000 cfu/ml A 8488) Normal site isabel present.Generally of low significance.Correl ate with clinical data and culture history. Lab Interpretation (test Abnormal code = 89851-6) [facility] CenterUrine [id number] 13:51:10 Test Item Value Reference Range Interpretation Comments Final Report (test code = 10 - 50,000 cfu/ml A 8488) Normal site isabel present.Generally of low significance.Correl ate with clinical data and culture history. Lab Interpretation (test Abnormal code = 35334-9) [facility] CenterUrine [id number] 13:51:10 Test Item Value Reference Range Interpretation Comments Final Report (test code = 10 - 50,000 cfu/ml A 8488) Normal site isabel present.Generally of low significance.Correl ate with clinical data and culture history. Lab Interpretation (test Abnormal code = 47229-4) [facility] CenterGastrointestinal Multiplex Panel Path [id number] 21:40:55GIMP PRReviewed and Electronically signed by Pathologist:ДМИТРИЙ CHAVEZ MD #[id number] [facility]UnHendrick Medical CenterGastrointestinal Multiplex Panel Path Review 2023-02-07 21:40:55GIMP PRReviewed and Electronically signed by Pathologist:ДМИТРИЙ CHAVEZ MD #[id number] [facility]UnHendrick Medical CenterGastrointestinal Multiplex Panel Path Review 2023-02-07 21:40:55GIMP PRReviewed and Electronically signed by Pathologist:ДМИТРИЙ CHAVEZ MD #[id number] [facility]UnHendrick Medical CenterGastrointestinal Multiplex Panel Path Review 2023-02-07 21:40:55GIMP PRReviewed and Electronically signed by Pathologist:ДМИТРИЙ CHAVEZ MD #[id number] [facility]UnHendrick Medical CenterClostridium Difficile DNA Path Review 2023-02-07 21:35:15C diff DNA PRReviewed and Electronically signed by Pathologist:ДМИТРИЙ CHAVEZ MD #[id number] [facility]UnHendrick Medical CenterClostridium Difficile DNA Path Review 2023-02-07 21:35:15C diff DNA PRReviewed and Electronically signed by Pathologist:ДМТИРИЙ CHAVEZ MD #[id number] [facility]UnHend[facility] CenterClostridium Difficile DNA Path Review 2023-02-07 21:35:15C diff DNA PRReviewed and Electronically signed by Pathologist:ДМИТРИЙ CHAVEZ MD #[id number] [facility]UnHend[facility] Medical CenterClostridium Difficile DNA Path Review 2023-02-07 21:35:15C diff DNA PRReviewed and Electronically signed by Pathologist:ДМИТРИЙ CHAVEZ MD #[id number] [facility]UnHendrick Medical CenterHepatitis B Surface [id number] 17:09:39 Test Item Value Reference Range Interpretation Comments HBsAg. (test code = 5747) Non Reactive Non Reactive [facility] CenterHepatitis B Surface [id number] 17:09:39 Test Item Value Reference Range Interpretation Comments HBsAg. (test code = 5747) Non Reactive Non Reactive [facility] CenterHe[facility] hospitaltis B Surface [id number] 17:09:39 Test Item Value Reference Range Interpretation Comments HBsAg. (test code = 5747) Non Reactive Non Reactive [facility] B Surface [id number] 17:09:39 Test Item Value Reference Range Interpretation Comments HBsAg. (test code = 5747) Non Reactive Non Reactive [facility] C Virus [id number] 16:29:30 Test Item Value Reference Range Interpretation Comments HCVAb. (test Non Reactive Non Reactive Antibody detect ion in the code = 5762) immunocompromis ed and immunosuppresse d population may be delayed or absent entirely. There fore serial testing, correl ation with other clinical findings, and supplementa l testing (if available) should be taken into cons ideration when interpreti ng the results. [facility] C Virus [id number] 16:29:30 Test Item Value Reference Range Interpretation Comments HCVAb. (test Non Reactive Non Reactive Antibody detect ion in the code = 5762) immunocompromis ed and immunosuppresse d population may be delayed or absent entirely. There fore serial testing, correl ation with other clinical findings, and supplementa l testing (if available) should be taken into cons ideration when interpreti ng the results. [facility] C Virus [id number] 16:29:30 Test Item Value Reference Range Interpretation Comments HCVAb. (test Non Reactive Non Reactive Antibody detect ion in the code = 5762) immunocompromis ed and immunosuppresse d population may be delayed or absent entirely. There fore serial testing, correl ation with other clinical findings, and supplementa l testing (if available) should be taken into cons ideration when interpreti ng the results. [facility] CenterH[facility] C Virus [id number] 16:29:30 Test Item Value Reference Range Interpretation Comments HCVAb. (test Non Reactive Non Reactive Antibody detect ion in the code = 5762) immunocompromis ed and immunosuppresse d population may be delayed or absent entirely. There fore serial testing, correl ation with other clinical findings, and supplementa l testing (if available) should be taken into cons ideration when interpreti ng the results. [facility] B Total Ig Core Ab (SCREENING) (anti-HBc total Ig; HBcAb total Ig)2023-02-07 16:29:12 Test Item Value Reference Range Interpretation Comments HBcAb. (test code = 5742) Non Reactive Non Reactive [facility] B Total Ig Core Ab (SCREENING) (anti-HBc total Ig; HBcAb total Ig)2023-02-07 16:29:12 Test Item Value Reference Range Interpretation Comments HBcAb. (test code = 5742) Non Reactive Non Reactive [facility] B Total Ig Core Ab (SCREENING) (anti-HBc total Ig; HBcAb total Ig)2023-02-07 16:29:12 Test Item Value Reference Range Interpretation Comments HBcAb. (test code = 5742) Non Reactive Non Reactive [facility] B Total Ig Core Ab (SCREENING) (anti-HBc total Ig; HBcAb total Ig)2023-02-07 16:29:12 Test Item Value Reference Range Interpretation Comments HBcAb. (test code = 5742) Non Reactive Non Reactive [facility] CenterClostridium Difficile DNA Assay 2023-02-07 14:32:28 Test Item Value Reference Range Interpretation Comments C difficile DNA (test Negative Negative code = 5134) C difficle Toxin EIA Test Not Performed Negative (test code = 8961) C difficile C. difficile DNA Interpretation (test code detection was = 1289449) negative making C. difficile infection highly unlikely in this patient. EIA not performed. [facility] CenterClostridium Difficile DNA Assay 2023-02-07 14:32:28 Test Item Value Reference Range Interpretation Comments C difficile DNA (test Negative Negative code = 5134) C difficle Toxin EIA Test Not Performed Negative (test code = 8961) C difficile C. difficile DNA Interpretation (test code detection was = 7494450) negative making C. difficile infection highly unlikely in this patient. EIA not performed. [facility] CenterClostridium Difficile DNA Assay 2023-02-07 14:32:28 Test Item Value Reference Range Interpretation Comments C difficile DNA (test Negative Negative code = 5134) C difficle Toxin EIA Test Not Performed Negative (test code = 8961) C difficile C. difficile DNA Interpretation (test code detection was = 7806067) negative making C. difficile infection highly unlikely in this patient. EIA not performed. [facility] CenterClostridium Difficile DNA Assay 2023-02-07 14:32:28 Test Item Value Reference Range Interpretation Comments C difficile DNA (test Negative Negative code = 5134) C difficle Toxin EIA Test Not Performed Negative (test code = 8961) C difficile C. difficile DNA Interpretation (test code detection was = 8525169) negative making C. difficile infection highly unlikely in this patient. EIA not performed. [facility] CenterGastrointestinal Multiplex Panel 2023-02-07 13:55:28 Test Item Value Reference Range Interpretation Comments Campylobacter (test code = Not Detected Not Detected 11901-2) C difficile DNA (GI Multi Refer to separate Panel) (test code = C. difficile DNA 18746-5) Assay for results Plesiomonas shigelloides Not Detected Not Detected (test code = 49268-1) Salmonella (test code = Not Detected Not Detected 63056-0) Vibrio (test code = Not Detected Not Detected 70942-2) Vibrio cholerae (test code Not Detected Not Detected = 84367-4) Yersinia enterocolitica Not Detected Not Detected (test code = 32436-9) Enteroaggregative E. coli Not Detected Not Detected (EAEC) (test code = 19535-2) Enteropathogenic E. coli Not Detected Not Detected (EPEC) (test code = 05978-0) Enterotoxigenic E. coli Not Detected Not Detected (ETEC) (test code = 09459-4) Shiga-like toxin-producing Not Detected Not Detected E. col (STEC) (test code = 57240-3) E. coli O157 (test code = Not Applicable Not Detected 15415-4) Shigella/Enteroinvasive E. Not Detected Not Detected coli (EIEC) (test code = 08343-4) Cryptosporidium (test code Not Detected Not Detected = 04388-3) Cyclospora cayetanensis Not Detected Not Detected (test code = 59838-8) Entamoeba histolytica Not Detected Not Detected (test code = 38264-4) Giardia lamblia (test code Not Detected Not Detected = 11258-4) Adenovirus F 40/41 (test Not Detected Not Detected code = 97501-3) Astrovirus (test code = Not Detected Not Detected 97894-7) Norovirus GI/GII (test Not Detected Not Detected code = 24810-0) Rotavirus A (test code = Not Detected Not Detected 18260-1) Sapovirus (I, II, IV and Not Detected Not Detected V) (test code = 84426-7) [facility] [place] Panel 2023-02-07 13:55:28 Test Item Value Reference Range Interpretation Comments Campylobacter (test code = Not Detected Not Detected 52494-5) C difficile DNA (GI Multi Refer to separate Panel) (test code = C. difficile DNA 05392-1) Assay for results Plesiomonas shigelloides Not Detected Not Detected (test code = 32739-6) Salmonella (test code = Not Detected Not Detected 83495-5) Vibrio (test code = Not Detected Not Detected 43945-6) Vibrio cholerae (test code Not Detected Not Detected = 14485-6) Yersinia enterocolitica Not Detected Not Detected (test code = 47000-1) Enteroaggregative E. coli Not Detected Not Detected (EAEC) (test code = 54146-2) Enteropathogenic E. coli Not Detected Not Detected (EPEC) (test code = 31393-9) Enterotoxigenic E. coli Not Detected Not Detected (ETEC) (test code = 52057-4) Shiga-like toxin-producing Not Detected Not Detected E. col (STEC) (test code = 96188-4) E. coli O157 (test code = Not Applicable Not Detected 18528-4) Shigella/Enteroinvasive E. Not Detected Not Detected coli (EIEC) (test code = 95409-6) Cryptosporidium (test code Not Detected Not Detected = 60851-7) Cyclospora cayetanensis Not Detected Not Detected (test code = 94451-6) Entamoeba histolytica Not Detected Not Detected (test code = 92082-1) Giardia lamblia (test code Not Detected Not Detected = 33697-9) Adenovirus F 40/41 (test Not Detected Not Detected code = 34889-5) Astrovirus (test code = Not Detected Not Detected 89881-6) Norovirus GI/GII (test Not Detected Not Detected code = 72735-4) Rotavirus A (test code = Not Detected Not Detected 17649-0) Sapovirus (I, II, IV and Not Detected Not Detected V) (test code = 90173-1) [facility] [place]G[facility] Multiplex Panel 2023-02-07 13:55:28 Test Item Value Reference Range Interpretation Comments Campylobacter (test code = Not Detected Not Detected 98904-1) C difficile DNA (GI Multi Refer to separate Panel) (test code = C. difficile DNA 38402-4) Assay for results Plesiomonas shigelloides Not Detected Not Detected (test code = 13375-7) Salmonella (test code = Not Detected Not Detected 33281-5) Vibrio (test code = Not Detected Not Detected 29371-1) Vibrio cholerae (test code Not Detected Not Detected = 89769-3) Yersinia enterocolitica Not Detected Not Detected (test code = 11902-8) Enteroaggregative E. coli Not Detected Not Detected (EAEC) (test code = 07372-3) Enteropathogenic E. coli Not Detected Not Detected (EPEC) (test code = 39391-8) Enterotoxigenic E. coli Not Detected Not Detected (ETEC) (test code = 30103-0) Shiga-like toxin-producing Not Detected Not Detected E. col (STEC) (test code = 69076-4) E. coli O157 (test code = Not Applicable Not Detected 82642-7) Shigella/Enteroinvasive E. Not Detected Not Detected coli (EIEC) (test code = 28811-1) Cryptosporidium (test code Not Detected Not Detected = 20571-5) Cyclospora cayetanensis Not Detected Not Detected (test code = 95828-6) Entamoeba histolytica Not Detected Not Detected (test code = 83572-0) Giardia lamblia (test code Not Detected Not Detected = 19829-6) Adenovirus F 40/41 (test Not Detected Not Detected code = 83047-6) Astrovirus (test code = Not Detected Not Detected 14717-1) Norovirus GI/GII (test Not Detected Not Detected code = 77652-2) Rotavirus A (test code = Not Detected Not Detected 92797-6) Sapovirus (I, II, IV and Not Detected Not Detected V) (test code = 55215-4) [facility] CenterG[facility] 2023-02-07 13:55:28 Test Item Value Reference Range Interpretation Comments Campylobacter (test code = Not Detected Not Detected 98993-3) C difficile DNA (GI Multi Refer to separate Panel) (test code = C. difficile DNA 33583-9) Assay for results Plesiomonas shigelloides Not Detected Not Detected (test code = 03821-3) Salmonella (test code = Not Detected Not Detected 23550-6) Vibrio (test code = Not Detected Not Detected 73553-8) Vibrio cholerae (test code Not Detected Not Detected = 81313-9) Yersinia enterocolitica Not Detected Not Detected (test code = 76329-0) Enteroaggregative E. coli Not Detected Not Detected (EAEC) (test code = 35588-9) Enteropathogenic E. coli Not Detected Not Detected (EPEC) (test code = 46788-1) Enterotoxigenic E. coli Not Detected Not Detected (ETEC) (test code = 45486-8) Shiga-like toxin-producing Not Detected Not Detected E. col (STEC) (test code = 54272-8) E. coli O157 (test code = Not Applicable Not Detected 22325-3) Shigella/Enteroinvasive E. Not Detected Not Detected coli (EIEC) (test code = 94217-9) Cryptosporidium (test code Not Detected Not Detected = 63097-1) Cyclospora cayetanensis Not Detected Not Detected (test code = 61146-8) Entamoeba histolytica Not Detected Not Detected (test code = 93223-0) Giardia lamblia (test code Not Detected Not Detected = 87680-7) Adenovirus F 40/41 (test Not Detected Not Detected code = 14010-4) Astrovirus (test code = Not Detected Not Detected 06267-1) Norovirus GI/GII (test Not Detected Not Detected code = 27023-8) Rotavirus A (test code = Not Detected Not Detected 35510-8) Sapovirus (I, II, IV and Not Detected Not Detected V) (test code = 75104-4) [facility] CenterFerritin [id number] 13:31:20 Test Item Value Reference Range Interpretation Comments Ferritin Lvl (test code = 2276-4) 320 ng/mL 13-150 H Lab Interpretation (test code = Abnormal 65590-5) [facility] CenterFerritin [id number] 13:31:20 Test Item Value Reference Range Interpretation Comments Ferritin Lvl (test code = 2276-4) 320 ng/mL 13-150 H Lab Interpretation (test code = Abnormal 23557-7) [facility] CenterFerritin [id number] 13:31:20 Test Item Value Reference Range Interpretation Comments Ferritin Lvl (test code = 2276-4) 320 ng/mL 13-150 H Lab Interpretation (test code = Abnormal 69663-8) [facility] CenterFerritin [id number] 13:31:20 Test Item Value Reference Range Interpretation Comments Ferritin Lvl (test code = 2276-4) 320 ng/mL 13-150 H Lab Interpretation (test code = Abnormal 89448-6) [facility] CenterTransferrin with [id number] 13:25:21 Test Item Value Reference Range Interpretation Comments Transferrin (test code 205 mg/dL 200-360 = 3034-6) TIBC (test code = 287 See_Comment [Automate d message] 2500-7) The system [employer] generated this result transmitted ref erence range: 250 - 45 0 mcg/dL. The ref erence range was not u sed to interpret this result as normal/abnor mal. [facility] CenterTransferrin with [id number] 13:25:21 Test Item Value Reference Range Interpretation Comments Transferrin (test code 205 mg/dL 200-360 = 3034-6) TIBC (test code = 287 See_Comment [Automate d message] 2500-7) The system [employer] generated this result transmitted ref erence range: 250 - 45 0 mcg/dL. The ref erence range was not u sed to interpret this result as normal/abnor mal. [facility] CenterTransferrin with [id number] 13:25:21 Test Item Value Reference Range Interpretation Comments Transferrin (test code 205 mg/dL 200-360 = 3034-6) TIBC (test code = 287 See_Comment [Automate d message] 2500-7) The system [employer] generated this result transmitted ref erence range: 250 - 45 0 mcg/dL. The ref erence range was not u sed to interpret this result as normal/abnor mal. [facility] CenterTransferrin with [id number] 13:25:21 Test Item Value Reference Range Interpretation Comments Transferrin (test code 205 mg/dL 200-360 = 3034-6) TIBC (test code = 287 See_Comment [Automate d message] 2500-7) The system [employer] h generated this result transmitted ref erence range: 250 - 45 0 mcg/dL. The ref erence range was not u sed to interpret this result as normal/abnor mal. [facility] [id number] 13:25:20 Test Item Value Reference Range Interpretation Comments Iron (test code = 51 See_Comment [Automate d message] The [facility]8-4) system which ge nerated this result transmit kaylie reference range : 37 - 145 mcg/dL. The ref erence range was not used to interpret this result as normal/abnormal . [facility]2023-04-09 13:25:20 Test Item Value Reference Range Interpretation Comments Iron (test code = 51 See_Comment [Automate d message] The [facility]8-4) system which ge nerated this result transmit kaylie reference range : 37 - 145 mcg/dL. The ref erence range was not used to interpret this result as normal/abnormal . [facility]2023-04-09 13:25:20 Test Item Value Reference Range Interpretation Comments Iron (test code = 51 See_Comment [Automate d message] The 2498-4) system which ge nerated this result transmit kaylie reference range : 37 - 145 mcg/dL. The ref erence range was not used to interpret this result as normal/abnormal . [facility]2023-04-09 13:25:20 Test Item Value Reference Range Interpretation Comments Iron (test code = 51 See_Comment [Automate d message] The [facility]8-4) system which ge nerated this result transmit kaylie reference range : 37 - 145 mcg/dL. The ref erence range was not used to interpret this result as normal/abnormal . [facility] CenterLipid [id number] 13:23:33 Test Item Value Reference Range Interpretation Comments Chol (test code = 137 mg/dL <=199 ATP III Cl assification 2092-12) of Total Choles terol Primary Target of Therapy (in mg/dL):<200 Voniztmri566-56 9 Borderline high >=240 High Trig (test code = 184 mg/dL <=149 H ATP III Cl assification 2570-8) of Serum Trigly cerides Primary Target of Therapy (in mg/dL):<150 Wwfmyr961-366 Borderline high 200-499 High>=500 Very highNon-fasting triglycerides > 200 mg/dL may be fo llowed up with a fasti ng Lipid Panel. Calculated LDL- C may be falsely decr eased when non-fastin g triglycerides > 200 mg/dL. HDL (test code = 27 mg/dL >=40 L 2085-07) LDL (test code = 73 mg/dL <=100 ATP III Cla ssification 71638-8) of LDL Choleste rol Primary Target of Therapy (in mg/dL):<100 Ltsmxfl093-091 Near optimal/above yefgpfy405-159 Borderline high 160-189 High>=190 Very high VLDL (test code = 37 mg/dL 72117-5) Lab Interpretation Abnormal (test code = 28955-6) [facility] CenterLipid [id number] 13:23:33 Test Item Value Reference Range Interpretation Comments Chol (test code = 137 mg/dL <=199 ATP III Cl assification 2092-12) of Total Choles terol Primary Target of Therapy (in mg/dL):<200 Uyplkqfch685-90 9 Borderline high >=240 High Trig (test code = 184 mg/dL <=149 H ATP III Cl assification 1-8) of Serum Trigly cerides Primary Target of Therapy (in mg/dL):<150 Wkdejj057-062 Borderline high 200-499 High>=500 Very highNon-fasting triglycerides > 200 mg/dL may be fo llowed up with a fasti ng Lipid Panel. Calculated LDL- C may be falsely decr eased when non-fastin g triglycerides > 200 mg/dL. HDL (test code = 27 mg/dL >=40 L 2085-07) LDL (test code = 73 mg/dL <=100 ATP III Cla ssification 43551-1) of LDL Choleste rol Primary Target of Therapy (in mg/dL):<100 Dccdojw247-691 Near optimal/above gbakfsp362-252 Borderline high 160-189 High>=190 Very high VLDL (test code = 37 mg/dL 23175-5) Lab Interpretation Abnormal (test code = 63874-5) [facility] CenterLipid [id number] 13:23:33 Test Item Value Reference Range Interpretation Comments Chol (test code = 137 mg/dL <=199 ATP III Cl assification 2092-3) of Total Choles terol Primary Target of Therapy (in mg/dL):<200 Zkmoesmwo595-70 9 Borderline high >=240 High Trig (test code = 184 mg/dL <=149 H ATP III Cl assification 2571-8) of Serum Trigly cerides Primary Target of Therapy (in mg/dL):<150 Nkgksg325-768 Borderline high 200-499 High>=500 Very highNon-fasting triglycerides > 200 mg/dL may be fo llowed up with a fasti ng Lipid Panel. Calculated LDL- C may be falsely decr eased when non-fastin g triglycerides > 200 mg/dL. HDL (test code = 27 mg/dL >=40 L 2085-07) LDL (test code = 73 mg/dL <=100 ATP III Cla ssification 74215-4) of LDL Choleste rol Primary Target of Therapy (in mg/dL):<100 Kovmmhm644-533 Near optimal/above dalycfw038-054 Borderline high 160-189 High>=190 Very high VLDL (test code = 37 mg/dL 43170-9) Lab Interpretation Abnormal (test code = 39538-8) [facility] CenterLipid [id number] 13:23:33 Test Item Value Reference Range Interpretation Comments Chol (test code = 137 mg/dL <=199 ATP III Cl assification 2092-3) of Total Choles terol Primary Target of Therapy (in mg/dL):<200 Nuemevhir433-14 9 Borderline high >=240 High Trig (test code = 184 mg/dL <=149 H ATP III Cl assification 2571-8) of Serum Trigly cerides Primary Target of Therapy (in mg/dL):<150 Wptopk935-325 Borderline high 200-499 High>=500 Very highNon-fasting triglycerides > 200 mg/dL may be fo llowed up with a fasti ng Lipid Panel. Calculated LDL- C may be falsely decr eased when non-fastin g triglycerides > 200 mg/dL. HDL (test code = 27 mg/dL >=40 L 2085-9) LDL (test code = 73 mg/dL <=100 ATP III Cla ssification 39918-0) of LDL Choleste rol Primary Target of Therapy (in mg/dL):<100 Fgmbrir864-568 Near optimal/above skofmtg169-835 Borderline high 160-189 High>=190 Very high VLDL (test code = 37 mg/dL 34565-2) Lab Interpretation Abnormal (test code = 56016-7) [facility] CenterHemoglobin [id number] 12:22:20 Test Item Value Reference Range Interpretation Comments A1C (test code = 4548-4) 10.2 % 4.3-5.6 H HbA 1c values >=6.5% are diagnostic of diabetes mellitus.Diagno sis should be confi rmed by repeat testing.Therape utic Action suggeste d: >8.0% HbA1c; Go al oftherapy: <7.0 % HbA1c Lab Interpretation (test Abnormal code = 30832-0) [facility] CenterHemoglobin [id number] 12:22:20 Test Item Value Reference Range Interpretation Comments A1C (test code = 4548-4) 10.2 % 4.3-5.6 H HbA 1c values >=6.5% are diagnostic of diabetes mellitus.Diagno sis should be confi rmed by repeat testing.Therape utic Action suggeste d: >8.0% HbA1c; Go al oftherapy: <7.0 % HbA1c Lab Interpretation (test Abnormal code = 40668-6) [facility] CenterHemoglobin [id number] 12:22:20 Test Item Value Reference Range Interpretation Comments A1C (test code = 4548-4) 10.2 % 4.3-5.6 H HbA 1c values >=6.5% are diagnostic of diabetes mellitus.Diagno sis should be confi rmed by repeat testing.Therape utic Action suggeste d: >8.0% HbA1c; Go al oftherapy: <7.0 % HbA1c Lab Interpretation (test Abnormal code = 78468-2) [facility] CenterHemoglobin [id number] 12:22:20 Test Item Value Reference Range Interpretation Comments A1C (test code = 4548-4) 10.2 % 4.3-5.6 H HbA 1c values >=6.5% are diagnostic of diabetes mellitus.Diagno sis should be confi rmed by repeat testing.Therape utic Action suggeste d: >8.0% HbA1c; Go al oftherapy: <7.0 % HbA1c Lab Interpretation (test Abnormal code = 53929-3) [facility] CenterCRP2023-04-08 17:26:26 Test Item Value Reference Range Interpretation Comments CRP (test code = 65.62 mg/[place] [address]-8) CRP assay are a s follows: Reference range s when used to assess cardi ac risk: <1.00 mg/L Low cardiovascular risk 1.00-3.00 mg/L Average cardiovascular risk >3.00 mg/L High cardi ovascular risk.Reference ranges when used to assess inflammatory re sponses: Less than or eq ual to 10.00 mg/L. [facility]CRP[facility] 17:26:26 Test Item Value Reference Range Interpretation Comments CRP (test code = 65.62 mg/[place] [address]-1) CRP assay are a s follows: Reference range s when used to assess cardi ac risk: <1.00 mg/L Low cardiovascular risk 1.00-3.00 mg/L Average cardiovascular risk >3.00 mg/L High cardi ovascular risk.Reference ranges when used to assess inflammatory re sponses: Less than or eq ual to 10.00 mg/L. [facility]CRP2023-04-[facility] 17:26:26 Test Item Value Reference Range Interpretation Comments CRP (test code = 65.62 mg/[place] [address]-5) CRP assay are a s follows: Reference range s when used to assess cardi ac risk: <1.00 mg/L Low cardiovascular risk 1.00-3.00 mg/L Average cardiovascular risk >3.00 mg/L High cardi ovascular risk.Reference ranges when used to assess inflammatory re sponses: Less than or eq ual to 10.00 mg/L. [facility]CRP20[facility]-04-[facility] 17:26:26 Test Item Value Reference Range Interpretation Comments CRP (test code = 65.62 mg/[place] [address]-6) CRP assay are a s follows: Reference range s when used to assess cardi ac risk: <1.00 mg/L Low cardiovascular risk 1.00-3.00 mg/L Average cardiovascular risk >3.00 mg/L High cardi ovascular risk.Reference ranges when used to assess inflammatory re sponses: Less than or eq ual to 10.00 mg/L. [facility] BNP (In-House)2023-02-06 17:14:43 Test Item Value Reference Range Interpretation Comments NT ProBNP (test code = 32247-8) 83 pg/mL <=125 [facility])2023-02-06 17:14:43 Test Item Value Reference Range Interpretation Comments NT ProBNP (test code = 58837-7) 83 pg/mL <=125 [facility])2023-02-06 17:14:43 Test Item Value Reference Range Interpretation Comments NT ProBNP (test code = 97669-1) 83 pg/mL <=125 [facility])2023-02-06 17:14:43 Test Item Value Reference Range Interpretation Comments NT ProBNP (test code = 17361-3) 83 pg/mL <=125 [facility] CenterT[facility] T (In-House)2023-02-06 06:39:52 Test Item Value Reference Range Interpretation Comments Troponin T (test code 10 ng/L <=19 < 19 n g/L Suggest retest = 77179-5) at 3 to 6 hours later to [...] interfere nces and falsely low res ults. [facility] ([facility])2023-02-06 06:39:52 Test Item Value Reference Range Interpretation Comments Troponin T (test code 10 ng/L <=19 < 19 n g/L Suggest retest = 72537-1) at 3 to 6 hours later to rule out myocar dial infarction >= 1 9 to <=52 ng/L Possible m yocardial injury. Sugges t retest at 3 hours. - a change of < 20 ng/L, rete st at 6 hours - a goff e [...] interfere nces and falsely low res ults. [facility] T (In-House)2023-02-06 06:39:52 Test Item Value Reference Range Interpretation Comments Troponin T (test code 10 ng/L <=19 < 19 n g/L Suggest retest = 53178-8) at 3 to 6 hours later to [...] interfere nces and falsely low res ults. [facility] ([facility])2023-02-06 06:39:52 Test Item Value Reference Range Interpretation Comments Troponin T (test code 10 ng/L <=19 < 19 n g/L Suggest retest = 83204-8) at 3 to 6 hours later to [...] interfere nces and falsely low res ults. [facility] CenterUrinalysis with Microscopic 2023-02-06 05:50:41 Test Item Value Reference Range Interpretation Comments UA Color (test code = [place]raw[place]Yellow A 65642-1) UA Appear (test code = Cloudy Clear A 15730-2) UA Glucose (test code 500 mg/dL NEG [...] = NOT SEEN See_Comment Some rep orting 60453-7) parameters with in the Urinalysis test have changed due to the implementation of new instrumentation in the Main [place], [place] lowing greater sensiti vity of measurement. Urinalysis resu lts reported by the [facility] using existing instrumentation , as well as Urinaly sis testing perform ed manually or by backup methodology at the [facility] l remain relative ly unchanged. New reporting asha eters and units will not be reported for al l campuses. [Aut omated message] The sy stem which generated this result transmit kaylie reference range : 0 - 2 /HPF. The refer ence range was not u sed to interpret this result as normal/abnor mal. UA RBC (test code = 13 See_Comment H [Automa kaylie message] 67278-7) The system [employer] generated this result transmitted ref erence range: 0 - 2 /H PF. The reference range was not used to int erpret this result as normal/abnormal . UA Mucous (test code = NOT SEEN Not Seen-Trace 01119-2) /HPF UA Bacteria (test code NOT SEEN NOT SEEN /HPF = 47528-6) UA Squam Epi (test OCC None-Occasional code = 29494-6) /HPF Lab Interpretation Abnormal (test code = 56689-8) [facility] [place] 2023-02-06 05:50:41 Test Item Value Reference Range Interpretation Comments UA Color (test code = [place] Straw-Yellow A 22702-1) UA Appear (test code = Cloudy Clear A 18070-2) UA Glucose (test code 500 mg/dL NEG [...] = NOT SEEN See_Comment Some rep orting 22471-8) parameters with in the Urinalysis test have changed due to the implementation of new instrumentation in the [facility] [place], [place] low[place] greater sensiti vity of measurement. Urinalysis resu lts reported by the [facility] using existing instrumentation , as well as Urinaly sis testing perform ed manually or by backup methodology at the [facility] [place] remain relative ly unchanged. New [...] = 13 See_Comment H [Automa kaylie message] 55534-2) The system [employer] generated this result transmitted ref erence range: 0 - 2 /H PF. The reference range was not used to int erpret this result as normal/abnormal . UA Mucous (test code = NOT SEEN Not Seen-Trace 83902-8) /HPF UA Bacteria (test code NOT SEEN NOT SEEN /HPF = 66019-3) UA Squam Epi (test OCC None-Occasional code = 57014-3) /HPF Lab Interpretation Abnormal (test code = 81488-9) [facility] [place] Microscopic 2023-02-06 05:50:41 Test Item Value Reference Range Interpretation Comments UA Color (test code = [place] Straw-Yellow A 96303-0) UA Appear (test code = Cloudy Clear A 30230-0) UA Glucose (test code 500 mg/dL NEG [...] = NOT SEEN See_Comment Some rep orting 04157-0) parameters with in the Urinalysis test have changed due to the implementation of new instrumentation in the Main [place], [facility] greater sensiti vity of measurement. Urinalysis resu lts reported by the [facility] using existing instrumentation , as well as Urinaly sis testing perform ed manually or by backup methodology at the [facility] [place] remain relative ly unchanged. New [...] = 13 See_Comment H [Automa kaylie message] 36314-0) The system [employer] generated this result transmitted ref erence range: 0 - 2 /H PF. The reference range was not used to int erpret this result as normal/abnormal . UA Mucous (test code = NOT SEEN Not Seen-Trace 27422-8) /HPF UA Bacteria (test code NOT SEEN NOT SEEN /HPF = 54277-5) UA Squam Epi (test OCC None-Occasional code = 93812-9) /HPF Lab Interpretation Abnormal (test code = 57694-4) [facility] CenterUrinalysis with Microscopic 2023-02-06 05:50:41 Test Item Value Reference Range Interpretation Comments UA Color (test code = [place] Straw-Yellow A 42859-7) UA Appear (test code = Cloudy Clear A 58239-9) UA Glucose (test code 500 mg/dL NEG [...] = NOT SEEN See_Comment Some rep orting 15731-4) parameters with in the Urinalysis test have changed due to the implementation of new instrumentation in the [facility] [place] greater sensiti vity of measurement. Urinalysis resu lts reported by the [facility] using existing instrumentation , as well as Urinaly sis testing perform ed manually or by backup methodology at the [facility] [place] l remain relative ly unchanged. [...] = 13 See_Comment H [Automa kaylie message] 53552-9) The system [employer] generated this result transmitted ref erence range: 0 - 2 /H PF. The reference range was not used to int erpret this result as normal/abnormal . UA Mucous (test code = NOT SEEN Not Seen-Trace 78583-1) /HPF UA Bacteria (test code NOT SEEN NOT SEEN /HPF = 79612-1) UA Squam Epi (test OCC None-Occasional code = 64878-9) /HPF Lab Interpretation Abnormal (test code = 27253-1) [facility] CenteraPTT2023-04-08 02:32:47 Test Item Value Reference Range Interpretation Comments aPTT (test code = 28.5 See_Comment [Automate d message] The 03263-9) system which ge nerated this result transmit kaylie reference range : 22.8 - 34.2 second(s). The reference range was not used to interpr et this result as diane l/abnormal. [facility] CenteraPTT2023-04-08 02:32:47 Test Item Value Reference Range Interpretation Comments aPTT (test code = 28.5 See_Comment [Automate d message] The 01628-9) system which ge nerated this result transmit kaylie reference range : 22.8 - 34.2 second(s). The reference range was not used to interpr et this result as diane l/abnormal. [facility] CenteraPTT2023-04-08 02:32:47 Test Item Value Reference Range Interpretation Comments aPTT (test code = 28.5 See_Comment [Automate d message] The 34877-1) system which ge nerated this result transmit kaylie reference range : 22.8 - 34.2 second(s). The reference range was not used to interpr et this result as diane l/abnormal. [facility] CenteraPTT2023-04-08 02:32:47 Test Item Value Reference Range Interpretation Comments aPTT (test code = 28.5 See_Comment [Automate d message] The 51543-9) system which ge nerated this result transmit kaylie reference range : 22.8 - 34.2 second(s). The reference range was not used to interpr et this result as diane l/abnormal. [facility] CenterProthrombin Time with [id number] 02:32:46 Test Item Value Reference Range Interpretation Comments PT (test code = 5902-2) 14.7 See_Comment H [Au tomated message] The system [employer] generated this result transmitted ref erence range: 11.9 - 1 4.1 second(s). The reference range was not used to int erpret this result as normal/abnormal . INR (test code = 6301-6) 1.16 0.89-1.10 H Lab Interpretation (test Abnormal code = 52590-2) [facility] CenterProthrombin Time with [id number] 02:32:46 Test Item Value Reference Range Interpretation Comments PT (test code = 5902-2) 14.7 See_Comment H [Au tomated message] The system [employer] generated this result transmitted ref erence range: 11.9 - 1 4.1 second(s). The reference range was not used to int erpret this result as normal/abnormal . INR (test code = 6301-6) 1.16 0.89-1.10 H Lab Interpretation (test Abnormal code = 09095-0) [facility] CenterProthrombin Time with [id number] 02:32:46 Test Item Value Reference Range Interpretation Comments PT (test code = 5902-2) 14.7 See_Comment H [Au tomated message] The system [employer] generated this result transmitted ref erence range: 11.9 - 1 4.1 second(s). The reference range was not used to int erpret this result as normal/abnormal . INR (test code = 6301-6) 1.16 0.89-1.10 H Lab Interpretation (test Abnormal code = 57166-3) [facility] CenterProthrombin Time with [id number] 02:32:46 Test Item Value Reference Range Interpretation Comments PT (test code = 5902-2) 14.7 See_Comment H [Au tomated message] The system [employer] generated this result transmitted ref erence range: 11.9 - 1 4.1 second(s). The reference range was not used to int erpret this result as normal/abnormal . INR (test code = 6301-6) 1.16 0.89-1.10 H Lab Interpretation (test Abnormal code = 23616-5) [facility] CenterD [id number] 02:32:45 Test Item Value Reference Range Interpretation Comments D-Dimer (test code = 3.04 See_Comment H [place] [address]-6) exclusion of ve nous thromboembolism is <0.51 mcg/mL FEUs (fi brinogen equivalent unit s). [Automated mess age] The system which ge nerated this result tra nsmitted reference range : 0.10 - 0.50 mcg/ml FEU . The reference range was not used to interpr et this result as normal/abnormal . Lab Interpretation Abnormal (test code = 27906-9) [facility] CenterD [id number] 02:32:45 Test Item Value Reference Range Interpretation Comments D-Dimer (test code = 3.04 See_Comment H [place] [address]-2) exclusion of ve nous thromboembolism is <0.51 mcg/mL FEUs (fi brinogen equivalent unit s). [Automated mess age] The system which ge nerated this result tra nsmitted reference range : 0.10 - 0.50 mcg/ml FEU . The reference range was not used to interpr et this result as normal/abnormal . Lab Interpretation Abnormal (test code = 56113-8) [facility] CenterD [id number] 02:32:45 Test Item Value Reference Range Interpretation Comments D-Dimer (test code = 3.04 See_Comment H [place] [address]-7) exclusion of ve nous thromboembolism is <0.51 mcg/mL FEUs (fi brinogen equivalent unit s). [Automated mess age] The system which ge nerated this result tra nsmitted reference range : 0.10 - 0.50 mcg/ml FEU . The reference range was not used to interpr et this result as normal/abnormal . Lab Interpretation Abnormal (test code = 75940-4) [facility]D [id number] 02:32:45 Test Item Value Reference Range Interpretation Comments D-Dimer (test code = 3.04 See_Comment H [place] [address]-3) exclusion of ve nous thromboembolism is <0.51 mcg/mL FEUs (fi brinogen equivalent unit s). [Automated mess age] The system which ge nerated this result tra nsmitted reference range : 0.10 - 0.50 mcg/ml FEU . The reference range was not used to interpr et this result as normal/abnormal . Lab Interpretation Abnormal (test code = 78292-6) [facility] CenterV [id number] 01:31:58 Test Item Value Reference Range Interpretation Comments V Lactate (test code = 2519-7) 1.2 mmol/L 0.5-1.6 [facility]V [id number] 01:31:58 Test Item Value Reference Range Interpretation Comments V Lactate (test code = 2519-7) 1.2 mmol/L 0.5-1.6 [facility] CenterVB [id number] 01:31:58 Test Item Value Reference Range Interpretation Comments V Lactate (test code = 2519-7) 1.2 mmol/L 0.5-1.6 [facility] CenterVB [id number] 01:31:58 Test Item Value Reference Range Interpretation Comments V Lactate (test code = 2519-7) 1.2 mmol/L 0.5-1.6 [facility] CenterCOVID-19 (SARS-CoV-2)Hwtvcbqsejin-[id number] 23:01:01 Test Item Value Reference Range Interpretation Comments COVID19 Not Detected Not Detected (SARS-CoV-2) (test code = 11003-1) COVID19 SARS Inpatient Indication (test Admission code = 95026) Covid 19 Comment See Note The ruby S ARS-CoV-2 (test code = [place] [address]) use on the jeanne s [employer] [...] sheet for patie nts provided by the land leases and rentals manager ([employer]) can be rev iewed at: https://www.fda .gov/m edia/935508/otf nload. A fact sheet fo Health Care pro viders is provided by the land leases and rentals manager ([employer]) and can be reviewed at: https://www.fda .gov/m edia/410726/otf nload Results must be interpreted wit hin [...] high-comple xity tests. [facility], CLIA Accreditation #[id number] and CAP Accreditation #[id number], verif ied the performance characteristics of this assay. Int ernal controls are us ed to monitor all sta ges of the test proces s. [facility] CenterCOVID-19 (SARS-CoV-2)Pfarwoygygah-[id number] 23:01:01 Test Item Value Reference Range Interpretation Comments COVID19 Not Detected Not Detected (SARS-CoV-2) (test code = 13914-6) COVID19 SARS Inpatient Indication (test Admission code = 24000) Covid 19 Comment See Note The ruby S ARS-CoV-2 (test code = [place] [address]) use on the jeanne s [employer] [...] sheet for patie nts provided by the land leases and rentals manager ([employer]) can be rev iewed at: https://www.[place] .gov/m edia/638529/otf nload. A fact sheet fo Health Care pro viders is provided by the land leases and rentals manager ([employer]) and can be reviewed at: https://www.[place] .gov/m edia/295733/otf nload Results must be interpreted wit hin [...] high-comple xity tests. [facility], CLIA Accreditation #[id number] and CAP Accreditation #[id number], verif ied the performance characteristics of this assay. Int ernal controls are us ed to monitor all sta ges of the test proces s. [facility] CenterCOVID-19 (SARS-CoV-2)Vivsfzhkprwa-[id number] 23:01:01 Test Item Value Reference Range Interpretation Comments COVID19 Not Detected Not Detected (SARS-CoV-2) (test code = 69054-3) COVID19 SARS Inpatient Indication (test Admission code = 95511) Covid 19 Comment See Note The ruby S ARS-CoV-2 (test code = [place] [address]) use on the jeanne s [employer] [...] sheet for patie nts provided by the land leases and rentals manager ([employer]) can be rev iewed at: https://www.[place] .gov/m edia/192997/otf nload. A fact sheet fo Health Care pro viders is provided by the land leases and rentals manager ([employer]) and can be reviewed at: https://www.fda .gov/m edia/177382/otf nload Results must be interpreted wit hin [...] high-comple xity tests. [facility], CLIA Accreditation #[id number] and CAP Accreditation #[id number], verif ied the performance characteristics of this assay. Int ernal controls are us ed to monitor all sta ges of the test proces s. [facility] CenterCOVID-19 (SARS-CoV-2)Jvkztuhlrhqu-[id number] 23:01:01 Test Item Value Reference Range Interpretation Comments COVID19 Not Detected Not Detected (SARS-CoV-2) (test code = 03601-5) COVID19 SARS Inpatient Indication (test Admission code = 47462) Covid 19 Comment See Note The ruby S ARS-CoV-2 (test code = [place] [address]) use on the jeanne s [employer] [...] sheet for patie nts provided by the land leases and rentals manager ([employer]) can be rev iewed at: https://www.[place] .gov/m edia/238577/otf nload. A fact sheet fo Health Care pro viders is provided by the land leases and rentals manager ([employer]) and can be reviewed at: https://www.fda .gov/m edia/093806/otf nload Results must be interpreted wit hin [...] high-comple xity tests. [facility], CLIA Accreditation #[id number] and CAP Accreditation #[id number], verif ied the performance characteristics of this assay. Int ernal controls are us ed to monitor all sta ges of the test proces s. [facility] CenterCKMB2023-04-07 21:13:54CK MB<2.0<=5.3 ng/mLUT [facility]UnMem[facility] HospitalMB2023-04-07 21:13:54CK MB<2.0<=5.3 ng/mLUT [facility]ENTERUnHendrick Medical CenterCK 2023-02-05 21:13:54CK MB<2.0<=5.3 ng/mLUT [facility]CKMB2023-04-07 21:13:54CK MB<2.0<=5.3 ng/mLUT [facility]ENTERUnHendrick Medical CenterLipase2023-04-07 21:08:09 Test Item Value Reference Range Interpretation Comments Lipase Lvl (test code = 3040-3) 18 U/L 13-60 [facility] CenterLipase2023-04-07 21:08:09 Test Item Value Reference Range Interpretation Comments Lipase Lvl (test code = 3040-3) 18 U/L -60 [facility] CenterLipase2023-04-07 21:08:09 Test Item Value Reference Range Interpretation Comments Lipase Lvl (test code = 3040-3) 18 U/L 13-60 [facility] CenterLipase2023-04-07 21:08:09 Test Item Value Reference Range Interpretation Comments Lipase Lvl (test code = 3040-3) 18 U/L 13-60 [facility] CenterAmylase [id number] 21:08:08 Test Item Value Reference Range Interpretation Comments Amylase Lvl (test code = 1798-8) 43 U/L 28-100 [facility] CenterAmylase [id number] 21:08:08 Test Item Value Reference Range Interpretation Comments Amylase Lvl (test code = 1798-8) 43 U/L 28-100 [facility] CenterAmylase [id number] 21:08:08 Test Item Value Reference Range Interpretation Comments Amylase Lvl (test code = 1798-8) 43 U/L 28-100 [facility] CenterAmylase [id number] 21:08:08 Test Item Value Reference Range Interpretation Comments Amylase Lvl (test code = 1798-8) 43 U/L 28-100 [facility] CenterHematocrit2023-03-30 13:50:44 Test Item Value Reference Range Interpretation Comments Hct (test code = 4544-3) 40.6 % 37.0-47.0 [facility] CenterHematocrit2023-03-30 13:50:44 Test Item Value Reference Range Interpretation Comments Hct (test code = 4544-3) 40.6 % 37.0-47.0 [facility] CenterHematocrit2023-03-30 13:50:44 Test Item Value Reference Range Interpretation Comments Hct (test code = 4544-3) 40.6 % 37.0-47.0 [facility] CenterHematocrit2023-03-30 13:50:44 Test Item Value Reference Range Interpretation Comments Hct (test code = 4544-3) 40.6 % 37.0-47.0 [facility] CenterHemoglobin2023-03-30 13:50:43 Test Item Value Reference Range Interpretation Comments Hgb (test code = 13.3 See_Comment [Automated message] The [employer]-07) system which ge nerated this result transmit kaylie reference range : 12.0 - 16.0 gm/dL. The reference range was not u sed to interpret this result as normal/abnormal . [facility] CenterHemoglobin2023-03-30 13:50:43 Test Item Value Reference Range Interpretation Comments Hgb (test code = 13.3 See_Comment [Automated message] The ) system which ge nerated this result transmit kaylie reference range : 12.0 - 16.0 gm/dL. The reference range was not u sed to interpret this result as normal/abnormal . [facility] CenterHemoglobin2023-03-30 13:50:43 Test Item Value Reference Range Interpretation Comments Hgb (test code = 13.3 See_Comment [Automated message] The ) system which ge nerated this result transmit kaylie reference range : 12.0 - 16.0 gm/dL. The reference range was not u sed to interpret this result as normal/abnormal . [facility] CenterHemoglobin2023-03-30 13:50:43 Test Item Value Reference Range Interpretation Comments Hgb (test code = 13.3 See_Comment [Automated message] The [employer] system which ge nerated this result transmit kaylie reference range : 12.0 - 16.0 gm/dL. The reference range was not u sed to interpret this result as normal/abnormal . [facility] CenterTetrahydocannabinol (THC), Quantitative, [id number] 19:13:38 Test Item Value Reference Range Interpretation Comments U THC GC/MS-Murdo n/a (test code = 7812) U THC [facility] see note Carboxy-TH C Confirmation, (test [...] 42 ng/mLReference Value: Cutoff: 5 ======PERFORMIN G LAB:[facility] Lab oratories [facility] [address] [place] [address] 390 Moe Guzman M.D. Ph.D. [id number] U THC [facility] n/a (test code = 7811) [facility] CenterTetrahydocannabinol (THC), Quantitative, [id number] 19:13:38 Test Item Value Reference Range Interpretation Comments U THC GC/MS-[place] n/a (test code = 7812) U THC [facility] see note Carboxy-TH C Confirmation, (test [...] 42 ng/mLReference Value: Cutoff: 5 ======MIGUELINAIN G LAB:[facility] [address] [place] [address] 84 Moe Guzman M.D. Ph.D. [id number] U THC [facility] n/a (test code = 7811) [facility] [place] TownshipTetrahydocannabinol (THC), Quantitative, [id number] 19:13:38 Test Item Value Reference Range Interpretation Comments U THC GC/MS-[place] n/a (test code = 7812) U THC [facility] see note Carboxy-TH C Confirmation, (test code = 7813) U: Carbox y-THC Interpretation: Positive ADDITIONAL INFO RMATION:This report is inten ded for use in clinical mon [facility] andfranklinagement o f patients. It is not inten ded for use inemployment-re lated testing.------- ------Delta- 8 Carboxy-Tetrahy drocannabino l by LC-MS/MS: 672 ng/mLReference Value: Cutoff: 5 Delta -9 Carboxy-Tetrahy drocannabino l by LC-MS/MS: 42 ng/mLReference Value: Cutoff: 5 ======PERFORMIN G LAB:SDL [facility] [address] [place] [address] 90 Moe Guzman M.D. Ph.D. [id number] U THC [facility] n/a (test code = 7811) [facility] Cancer [place] TownshipTetrahydocannabinol (THC), Quantitative, [id number] 19:13:38 Test Item Value Reference Range Interpretation Comments U THC GC/MS-[place] n/a (test code = 7812) U THC [facility] see note Carboxy-TH C Confirmation, (test [...] 42 ng/mLReference Value: Cutoff: 5 ======PERFORMIN G LAB:ALL [facility] Lab oratories [facility] [address] [place] [address] 905 Moe Guzman M.D. Ph.D. [id number] U THC [facility] n/a (test code = 7811) [facility] [place] Township[place]inalysis Microscopic Exam 2023-01-27 04:26:48 Test Item Value Reference Range Interpretation Comments UA WBC (test code = 6 See_Comment H Some rep orting 09744-6) parameters with in the Urinalysis test have changed due to the implementation of new instrumentation in the [facility] [place] greater sensiti vity of measurement. Urinalysis resu lts reported by the [facility] enters using existing instrumentation , as well as Urinaly sis testing perform ed manually or by backup methodology at the [facility] [place] chino l remain relative ly unchanged. New reporting asha eters and units will not be reported for al l campuses. [Auto mated message] The sy stem which generated this result transmit kaylie reference range : 0 - 2 /HPF. The refer ence range was not u sed to interpret this result as normal/abnor mal. UA RBC (test code = See_Comment [Automa kaylie message] 34664-3) The system [employer] generated this result transmitted ref erence range: 0 - 2 /H PF. The reference range was not used to int erpret this result as normal/abnormal . UA Mucous (test code = NOT SEEN Not Seen-Trace 95951-0) /HPF UA Bacteria (test code NOT SEEN NOT SEEN /HPF = 95828-7) UA Squam Epi (test OCC None-Occasional code = 49531-2) /HPF Lab Interpretation Abnormal (test code = 77230-8) [facility] Exam 2023-01-27 04:26:48 Test Item Value Reference Range Interpretation Comments UA WBC (test code = 6 See_Comment H Some rep orting 14188-5) parameters with in the Urinalysis test have changed due to the implementation of new instrumentation in the [facility], al lowing greater sensiti vity of measurement. Urinalysis resu lts reported by the [facility] enters using existing instrumentation , as well as Urinaly sis testing perform ed manually or by backup methodology at the [facility] chino l remain relative ly unchanged. New reporting asha eters and units will not be reported for [facility]. [Auto mated message] The sy stem which generated this result transmit kaylie reference range : 0 - 2 /HPF. The refer ence range was not u sed to interpret this result as normal/abnor mal. UA RBC (test code = See_Comment [Automa kaylie message] 20126-1) The system [employer] generated this result transmitted ref erence range: 0 - 2 /H PF. The reference range was not used to int erpret this result as normal/abnormal . UA Mucous (test code = NOT SEEN Not Seen-Trace 03078-0) /HPF UA Bacteria (test code NOT SEEN NOT SEEN /HPF = 66130-1) UA Squam Epi (test OCC None-Occasional code = 36650-9) /HPF Lab Interpretation Abnormal (test code = 44681-4) [facility] CenterUrinal[facility] Microscopic Exam 2023-01-27 04:26:48 Test Item Value Reference Range Interpretation Comments UA WBC (test code = 6 See_Comment H Some rep orting 69216-0) parameters with in the Urinalysis test have changed due to the implementation of new instrumentation in the [facility], al lowing greater sensiti vity of measurement. Urinalysis resu lts reported by the [facility] Care C enters using existing instrumentation , as well as Urinaly sis testing perform ed manually or by backup methodology at the [facility] chino l remain relative ly unchanged. New reporting asha eters and units will not be reported for [facility]. [Auto mated message] The sy stem which generated this result transmit kaylie reference range : 0 - 2 /HPF. The refer ence range was not u sed to interpret this result as normal/abnor mal. UA RBC (test code = See_Comment [Automa kaylie message] 60648-0) The system [employer] generated this result transmitted ref erence range: 0 - 2 /H PF. The reference range was not used to int erpret this result as normal/abnormal . UA Mucous (test code = NOT SEEN Not Seen-Trace 27559-1) /HPF UA Bacteria (test code NOT SEEN NOT SEEN /HPF = 64025-8) UA Squam Epi (test OCC None-Occasional code = 30112-0) /HPF Lab Interpretation Abnormal (test code = 40144-9) [facility] Center[facility] Microscopic Exam 2023-01-27 04:26:48 Test Item Value Reference Range Interpretation Comments UA WBC (test code = 6 See_Comment H Some rep orting 72642-1) parameters with in the Urinalysis test have changed due to the implementation of new instrumentation in the [facility], [facility] sensiti vity of measurement. Urinalysis resu lts reported by the [facility] Care C enters using existing instrumentation , as well as Urinaly sis testing perform ed manually or by backup methodology at the [facility] chino l remain relative ly unchanged. New reporting asha eters and units will not be reported for [facility]. [Auto mated message] The sy stem which generated this result transmit kaylie reference range : 0 - 2 /HPF. The refer ence range was not u sed to interpret this result as normal/abnor mal. UA RBC (test code = See_Comment [Automa kaylie message] 43944-6) The system [employer] generated this result transmitted ref erence range: 0 - 2 /H PF. The reference range was not used to int erpret this result as normal/abnormal . UA Mucous (test code = NOT SEEN Not Seen-Trace 36139-0) /HPF UA Bacteria (test code NOT SEEN NOT SEEN /HPF = 54226-0) UA Squam Epi (test OCC None-Occasional code = 53026-8) /HPF Lab Interpretation Abnormal (test code = 63861-3) [facility] CenterUrinal[facility] w/Microscopic if [id number] 03:58:37 Test Item Value Reference Range Interpretation Comments UA Color (test code = 10859-8) Straw Straw-Yellow UA Appear (test code = 00130-7) Clear Clear UA Glucose (test code = [...] NEG Lab Interpretation (test code = Abnormal 83540-8) [facility] Center[facility]inal[facility] w/Microscopic if [id number] 03:58:37 Test Item Value Reference Range Interpretation Comments UA Color (test code = 85498-3) Straw Straw-Yellow UA Appear (test code = 84547-7) Clear Clear UA Glucose (test code = [...] NEG Lab Interpretation (test code = Abnormal 94582-7) [facility] w/Microscopic if [id number] 03:58:37 Test Item Value Reference Range Interpretation Comments UA Color (test code = 79116-6) Straw Straw-Yellow UA Appear (test code = 18016-9) Clear Clear UA Glucose (test code = [...] NEG Lab Interpretation (test code = Abnormal 10551-1) [facility] Center[facility]inal[facility] w/Microscopic if [id number] 03:58:37 Test Item Value Reference Range Interpretation Comments UA Color (test code = 63190-2) Straw Straw-Yellow UA Appear (test code = 46578-0) Clear Clear UA Glucose (test code = [...] NEG Lab Interpretation (test code = Abnormal 23652-6) [facility] CenterLDH2023-03-28 20:38:14 Test Item Value Reference Range Interpretation Comments LDH (test code = 289 U/L 135-214 H Results gre ater than 78729-0) 1651 U/L may no t be reliable due to matrix effect w ith extended diluti on as it exceeds the land leases and rentals manager's recommended [place] it. Caution should be exercised when interpreting agarwal ch values and done in conjunction [facility] clinical contex t. Lab Interpretation (test Abnormal code = 56292-2) [facility] CenterLDH2023-03-28 20:38:14 Test Item Value Reference Range Interpretation Comments LDH (test code = 289 U/L 135-214 H Results gre ater than 76471-7) 1651 U/L may no t be reliable due to matrix effect w ith extended diluti on as it exceeds the land leases and rentals manager's recommended goldberg it. Caution should be exercised when interpreting agarwal ch values and done in conjunction [facility] clinical contex t. Lab Interpretation (test Abnormal code = 97233-5) [facility] CenterLDH2023-03-28 20:38:14 Test Item Value Reference Range Interpretation Comments LDH (test code = 289 U/L 135-214 H Results gre ater than 54535-8) 1651 U/L may no t be reliable due to matrix effect w ith extended diluti on as it exceeds the land leases and rentals manager's recommended goldberg it. Caution should be exercised when interpreting agarwal ch values and done in conjunction [facility] clinical contex t. Lab Interpretation (test Abnormal code = 09757-0) [facility] CenterLDH2023-03-28 20:38:14 Test Item Value Reference Range Interpretation Comments LDH (test code = 289 U/L 135-214 H Results gre ater than 17788-6) 1651 U/L may no t be reliable due to matrix effect w ith extended diluti on as it exceeds the land leases and rentals manager's recommended goldberg it. Caution should be exercised when interpreting agarwal ch values and done in conjunction [facility] clinical contex t. Lab Interpretation (test Abnormal code = 20971-1) [facility] CenterControlled Substance Monitoring Panel, [id number] 09:20:34 Test Item Value Reference Interpretation Comments Range Urine Creatinine 55.1 mg/dL (test code = 2161-8) Urine Specific 1.014 [place] (test code = 5810-7) Urine Ph (test 6.2 code = 2756-5) Urine Oxidants Negative Cutoff: 200 (test code = mg/L 84152-2) Urine Comment Normal (test code = 58219-5) U Negative Cutoff: 200 Barbiturates-Luu ng/mL (test code = 70652-6) U Cocaine Lvl-[place] Negative Cutoff: 150 This coca ine immunoassay (test code = ng/mL targets benzoyl ecgonine 81835-9) theprimary meta bolite of cocaine. U THC-[place] (test See Cutoff: 50 A RESULT: Pre sumptive code = 74731-6) Footnote ng/mL PositiveThis immunoassay targets delta-9 tetrahydrocanna [...] code Not Cutoff: 25 Tylenol 3 = 61807-9) Detected ng/mL Gmqbmcz-3-nfds-glu Not Cutoff: 100 Metabolit e of codeine curonide (test Detected ng/mL code = 97161-3) Morphine (test Not Cutoff: 25 Gayle Mary n, MS Contin; Also code = 50601-7) Detected ng/mL a minor meta bolite (10%) ofcodeine and c an be seen in low concentrati ons (<2,000ng/mL) w ith poppy seed ingestion. Zqnyntnf-5-fdlw-gl Not Cutoff: 100 Metabolit e of morphine ucuronide (test Detected ng/mL code = 50491-2) 6-monoacetylmorphi Not Cutoff: 25 Metabolit e of heroin ne (test code = Detected ng/mL 17173-6) Hydrocodone (test Not Cutoff: 25 Lortab, No rco, Vicodin; Also a code = 08983-2) Detected ng/mL very minor m etabolite ofcodeine and impurity (< 1%) of oxycodone. Norhydrocodone Not Cutoff: 25 Metabolite of hydrocodone (test code = Detected ng/mL 26805-3) Dihydrocodeine Not Cutoff: 25 Metabolite of hydrocodone (test code = Detected ng/mL 79325-7) Hydromorphone Not Cutoff: 25 Dilaudid, Exal go; Also a (test code = Detected ng/mL metabolite of h ydrocodone and 83198-2) aminor (<5%) me tabolite of morphine. Wpuxeziqpojot-4-kq Not Cutoff: 100 Metabolit e of hydromorphone ta-glucuronide Detected ng/mL (test code = 68025-5) Oxycodone (test Present Cutoff: 25 A Endocet, Per cocet, Oxycontin code = 13489-4) ng/mL Noroxycodone (test Present Cutoff: 25 A Metabolit e of oxycodone code = 72512-6) ng/mL Oxymorphone (test Not Cutoff: 25 Numorphan, Opana; Also a code = 71269-3) Detected ng/mL metabolite o f oxycodone. Havozvyivfz-7-zczg Not Cutoff: 100 Metabolit e of oxymorphone -glucuronide (test Detected ng/mL and/or na loxone (nornaloxone) code = 39905-2) Noroxymorphone Present Cutoff: 25 A Metabolite of oxymorphone (test code = ng/mL and/or naloxone (nornaloxone) 61090-5) Fentanyl (test Not Cutoff: 2 Actiq, Durage sic, Fentora code = 07705-7) Detected ng/mL Norfentanyl (test Not Cutoff: 2 Metabolite of fentanyl code = 35516-7) Detected ng/mL Meperidine (test Not Cutoff: 25 Demerol code = 89752-6) Detected ng/mL Normeperidine Not Cutoff: 25 Metabolite of meperidine (test code = Detected ng/mL 68423-8) Naloxone (test Not Cutoff: 25 Narcan code = 18377-5) Detected ng/mL Nnnvlrhg-6-opah-gl Not Cutoff: 100 Metabolit e of naloxone ucuronide (test Detected ng/mL code = 69917-1) U Methadone (test Not Cutoff: 25 Dolophine code = 95661-8) Detected ng/mL EDDP (test code = Not Cutoff: 25 Metabolite of methadone 91901-0) Detected ng/mL Propoxyphene (test Not Cutoff: 25 Darvon, D arvocet code = 30303-2) Detected ng/mL Norpropoxyphene Not Cutoff: 25 Metabolite o f propoxyphene (test code = Detected ng/mL 18646-0) Tramadol (test Not Cutoff: 25 Tradol, Ultra m, Ultracet code = 02894-7) Detected ng/mL O-desmethyltramado Not Cutoff: 25 Metabolit e of tramadol l (test code = Detected ng/mL 18972-9) Tapentadol (test Not Cutoff: 25 Nucynta code = 14621-9) Detected ng/mL Kypkbamqit-dejg-gl Not Cutoff: 100 Metabolit e of tapentadol ucuronide (test Detected ng/mL code = 50104-9) Buprenorphine Not Cutoff: 5 Buprenex, Subo xone (test code = Detected ng/mL 45395-1) Norbuprenorphine Not Cutoff: 5 Metabolite of buprenorphine (test code = Detected ng/mL 44020-7) Norbuprenorphine Not Cutoff: 20 Metabolite of buprenorphine Glucuronide (test Detected ng/mL code = 05071-0) Benzodiazepine See Test detected the presence of Interp Urine (test Footnote alprazola m and two of code = 77843-3) itsmetabolit es (alpha-hydroxya lprazolam andalpha-hydrox yalprazolam glucuronide). S uspect use ofalprazolam wi thin the past three days. Hailey t detected the presence of zol pidem xgejvx-2-eubpon ylicacid (metabolite of zolpidem) only. Suspect use of zolpidemwithin the past four d ays. ----ADDITIONAL INFORMATION---- T his test was de veloped and its performance characteristics determined by [facility] in a manner consistent with CLIArequirement s. This test has not been cleare d or approved bythe U.S. Food and Drug Administration. Alprazolam Urine Present Cutoff: 10 A Xanax (test code = ng/mL 32322-9) Alpha-Hydroxyalpra Present Cutoff: 10 A Metabolit e of Alprazolam zolam Urine (test ng/mL code = 64228-9) Alpha-Hydroxyalpra Present Cutoff: 50 A Metabolit e of Alprazolam zolam Glucuronide ng/mL Urine (test code = 65163-8) Chlordiazepoxide Not Cutoff: 10 Librium Urine (test code = Detected ng/mL 83941-4) Colbazam Urine Not Cutoff: 10 Frisium, Onfi (test code = Detected ng/mL 65783-4) N-Desmethylclobaza Not Cutoff: 200 Metabolit e of Clobazam m Urine (test code Detected ng/mL = 40437-1) Clonazepam Urine Not Cutoff: 10 Klonopin, R ivotril (test code = Detected ng/mL 56552-5) 7-Aminoclonazepam Not Cutoff: 10 Metabolite of Clonazepam Urine (test code = Detected ng/mL 02332-4) Diazepam Urine Not Cutoff: 10 Valium (test code = Detected ng/mL 05261-7) Nordiazepam Urine Not Cutoff: 10 Metabolite of Chlordiazepoxide, (test code = Detected ng/mL Diazepam, or Pr azepam. 64394-0) Flunitrazepam Not Cutoff: 10 Rohypnol Urine (test code = Detected ng/mL 23079-9) 7-Aminoflunitrazep Not Cutoff: 10 Metabolit e of Flunitrazepam am Urine (test Detected ng/mL code = 66551-0) FlUrinerazepam Not Cutoff: 10 Dalmane Urine (test code = Detected ng/mL 12299-3) 2-Hydroxy Ethyl Not Cutoff: 10 Metabolite o f Flurazepam Flurazepam Urine Detected ng/mL (test code = 51460-6) Lorazepam Urine Not Cutoff: 10 Ativan (test code = Detected ng/mL 85227-1) Lorazepam Not Cutoff: 50 Metabolite of L orazepam Glucuronide Urine Detected ng/mL (test code = 01726-1) Midazolam Urine Not Cutoff: 10 Versed (test code = Detected ng/mL 19753-0) Alpha-Hydroxy Not Cutoff: 10 Metabolite of Midazolam Midazolam Urine Detected ng/mL (test code = 08798-4) Oxazepam Urine Not Cutoff: 10 Serax; Also a metabolite of (test code = Detected ng/mL Chlordiazepoxid e, Diazepam, 13423-2) orTemazepam. Oxazepam Not Cutoff: 50 Metabolite of O xazepam Glucuronide Urine Detected ng/mL (test code = 43213-4) Prazepam Urine Not Cutoff: 10 Centrax (test code = Detected ng/mL 23835-8) Temazepam Urine Not Cutoff: 10 Restoril; Al so a metabolite of (test code = Detected ng/mL Diazepam. 15327-8) Temazepam Not Cutoff: 50 Metabolite of T emazepam Glucuronide Urine Detected ng/mL (test code = 24983-0) Triazolam Urine Not Cutoff: 10 Halcion (test code = Detected ng/mL 80556-6) Alpha-Hydroxy Not Cutoff: 10 Metabolite of Triazolam Triazolam Urine Detected ng/mL (test code = 76548-2) Zolpidem Urine Not Cutoff: 10 Ambien (test code = Detected ng/mL 26705-0) Zolpidem Present Cutoff: 10 A Metabolite of Z olpidem Ybwfp-5-Dwlgndriyh ng/mL Acid Urine (test code = 59539-6) Methamphetamine Not Cutoff: 100 Desoxyn (test code = Detected ng/mL 83271-7) Amphetamine (test Not Cutoff: 100 Dyanavel X R, Adzenys ER, code = 51481-1) Detected ng/mL Adderall, Vy vanse; Also ametabolite of methamphetamine 3,4-Methylenedioxy Not Cutoff: 100 methamphetamine Detected ng/mL (MDMA) (test code = 92887-7) 3,4-Methylenedioxy Not Cutoff: 100 -N-Ethylamphetamin Detected ng/mL e (MDEA) (test code = 37975-1) 3,4-Methylenedioxy Not Cutoff: 100 Also a me tabolite of MDMA amphetamine (MDA) Detected ng/mL and/or MDE A (test code = 85803-1) Ephedrine (test Not Cutoff: 100 code = 98030) Detected ng/mL Pseudoephedrine Present Cutoff: 100 A Sudafed (test code = ng/mL 59424) Phentermine (test Not Cutoff: 100 Adipex-P, Lomaira, Qsymia code = 91106-8) Detected ng/mL Phencyclidine Not Cutoff: 20 (PCP) (test code = Detected ng/mL 63379-1) Methylphenidate Not Cutoff: 20 Ritalin, Con certa (test code = Detected ng/mL 43858-4) Ritalinic acid Not Cutoff: 100 Metabolite of methylphenidate (test code = Detected ng/mL 83532) Stimulant See Test detected t he presence of Interpretation Footnote pseudoephedri ne. Suspect useof (test code = pseudoephedrine within the past 88022-9) three days. ----ADDITIONAL INFORMATION---- T his test was de veloped and its performance characteristics determined by [facility] in a manner consistent with CLIArequirement s. This test has not been cleare d or approved bythe U.S. Food and Drug Administration. Test Performed by:[facility] [id number] [place], [place] [address]Des Dir ronnie: Moe Guzman M.D. Ph.D.; CLIA# [id number] Patients Current NOT ---------ADDITIONAL Medications (test ANSWERED INFORMATIO N A code = 34788-8) ccuracy and completeness of declared medica tions onreports solely dependen t on information submitted byshanei leeroy. Lab Interpretation Abnormal (test code = 09151-6) [facility] [place]rolled [place] Monitoring Panel, [id number] 09:20:34 Test Item Value Reference Interpretation Comments Range Urine Creatinine 55.1 mg/dL (test code = 2161-8) Urine Specific 1.014 [place] (test code = 5810-7) Urine Ph (test 6.2 code = 2756-5) Urine Oxidants Negative Cutoff: 200 (test code = mg/L 04914-0) Urine Comment Normal (test code = 58757-0) U Negative Cutoff: 200 Barbiturates-Murdo ng/mL (test code = 83454-3) U Cocaine Lvl-Murdo Negative Cutoff: 150 This coca ine immunoassay (test code = ng/mL targets benzoyl ecgonine 97517-7) theprimary meta bolite of cocaine. U THC-Luu (test See Cutoff: 50 A RESULT: Pre sumptive code = 73248-6) Footnote ng/mL PositiveThis immunoassay targets delta-9 tetrahydrocanna [...] code Not Cutoff: 25 Tylenol 3 = 89465-1) Detected ng/mL Gbezoob-4-fthv-glu Not Cutoff: 100 Metabolit e of codeine curonide (test Detected ng/mL code = 34311-4) Morphine (test Not Cutoff: 25 Gayle Mary, MS Contin; Also code = 92886-5) Detected ng/mL a minor meta bolite (10%) ofcodeine and c an be seen in low concentrati ons (<2,000ng/mL) w ith poppy seed ingestion. Nctwkbaw-4-qnzh-gl Not Cutoff: 100 Metabolit e of morphine ucuronide (test Detected ng/mL code = 61185-6) 6-monoacetylmorphi Not Cutoff: 25 Metabolit e of heroin ne (test code = Detected ng/mL 99884-8) Hydrocodone (test Not Cutoff: 25 Lortab, No rco, Vicodin; Also a code = 71739-2) Detected ng/mL very minor m etabolite ofcodeine and impurity (< 1%) of oxycodone. Norhydrocodone Not Cutoff: 25 Metabolite of hydrocodone (test code = Detected ng/mL 35586-2) Dihydrocodeine Not Cutoff: 25 Metabolite of hydrocodone (test code = Detected ng/mL 73060-8) Hydromorphone Not Cutoff: 25 Dilaudid, Exal go; Also a (test code = Detected ng/mL metabolite of h ydrocodone and 67631-6) aminor (<5%) me tabolite of morphine. Ekfysrnuoeuku-7-sf Not Cutoff: 100 Metabolit e of hydromorphone ta-glucuronide Detected ng/mL (test code = 91193-6) Oxycodone (test Present Cutoff: 25 A Endocet, Per cocet, Oxycontin code = 06758-9) ng/mL Noroxycodone (test Present Cutoff: 25 A Metabolit e of oxycodone code = 99956-4) ng/mL Oxymorphone (test Not Cutoff: 25 Numorphan, Opana; Also a code = 29269-8) Detected ng/mL metabolite o f oxycodone. Fphiqcmigsn-6-kzon Not Cutoff: 100 Metabolit e of oxymorphone -glucuronide (test Detected ng/mL and/or na loxone (nornaloxone) code = 59026-5) Noroxymorphone Present Cutoff: 25 A Metabolite of oxymorphone (test code = ng/mL and/or naloxone (nornaloxone) 68459-3) Fentanyl (test Not Cutoff: 2 Actiq, Durage sic, Fentora code = 61651-2) Detected ng/mL Norfentanyl (test Not Cutoff: 2 Metabolite of fentanyl code = 29547-3) Detected ng/mL Meperidine (test Not Cutoff: 25 Demerol code = 66723-1) Detected ng/mL Normeperidine Not Cutoff: 25 Metabolite of meperidine (test code = Detected ng/mL 79636-7) Naloxone (test Not Cutoff: 25 Narcan code = 17885-3) Detected ng/mL Gnxnddqs-1-svvo-gl Not Cutoff: 100 Metabolit e of naloxone ucuronide (test Detected ng/mL code = 19884-1) U Methadone (test Not Cutoff: 25 Dolophine code = 29079-1) Detected ng/mL EDDP (test code = Not Cutoff: 25 Metabolite of methadone 88053-1) Detected ng/mL Propoxyphene (test Not Cutoff: 25 Darvon, D arvocet code = 15441-0) Detected ng/mL Norpropoxyphene Not Cutoff: 25 Metabolite o f propoxyphene (test code = Detected ng/mL 39262-6) Tramadol (test Not Cutoff: 25 Tradol, Ultra m, Ultracet code = 99678-5) Detected ng/mL O-desmethyltramado Not Cutoff: 25 Metabolit e of tramadol l (test code = Detected ng/mL 09838-5) Tapentadol (test Not Cutoff: 25 Nucynta code = 50478-4) Detected ng/mL Hviagiajit-fsmu-qy Not Cutoff: 100 Metabolit e of tapentadol ucuronide (test Detected ng/mL code = 49682-3) Buprenorphine Not Cutoff: 5 Buprenex, Subo xone (test code = Detected ng/mL 44333-4) Norbuprenorphine Not Cutoff: 5 Metabolite of buprenorphine (test code = Detected ng/mL 23402-1) Norbuprenorphine Not Cutoff: 20 Metabolite of buprenorphine Glucuronide (test Detected ng/mL code = 85611-6) Benzodiazepine See Test detected the presence of Interp Urine (test Footnote alprazola m and two of code = 09750-2) itsmetabolit es (alpha-hydroxya lprazolam andalpha-hydrox yalprazolam glucuronide). S uspect use ofalprazolam wi thin the past three days. Hailey t detected the presence of zol pidem ncehbq-3-ojpvpp ylicacid (metabolite of zolpidem) only. Suspect use of zolpidemwithin the past four d ays. ----ADDITIONAL INFORMATION---- T his test was de veloped and its performance characteristics determined by [facility] in a manner consistent with CLIArequirement s. This test has not been cleare d or approved bythe U.S. Food and Drug Administration. Alprazolam Urine Present Cutoff: 10 A Xanax (test code = ng/mL 15991-0) Alpha-Hydroxyalpra Present Cutoff: 10 A Metabolit e of Alprazolam zolam Urine (test ng/mL code = 77517-9) Alpha-Hydroxyalpra Present Cutoff: 50 A Metabolit e of Alprazolam zolam Glucuronide ng/mL Urine (test code = 61272-5) Chlordiazepoxide Not Cutoff: 10 Librium Urine (test code = Detected ng/mL 47990-6) Colbazam Urine Not Cutoff: 10 Frisium, Onfi (test code = Detected ng/mL 10107-8) N-Desmethylclobaza Not Cutoff: 200 Metabolit e of Clobazam m Urine (test code Detected ng/mL = 03594-3) Clonazepam Urine Not Cutoff: 10 Klonopin, R ivotril (test code = Detected ng/mL 26316-4) 7-Aminoclonazepam Not Cutoff: 10 Metabolite of Clonazepam Urine (test code = Detected ng/mL 21512-7) Diazepam Urine Not Cutoff: 10 Valium (test code = Detected ng/mL 08816-6) Nordiazepam Urine Not Cutoff: 10 Metabolite of Chlordiazepoxide, (test code = Detected ng/mL Diazepam, or Pr azepam. 74026-1) Flunitrazepam Not Cutoff: 10 Rohypnol Urine (test code = Detected ng/mL 53056-0) 7-Aminoflunitrazep Not Cutoff: 10 Metabolit e of Flunitrazepam am Urine (test Detected ng/mL code = 62357-8) FlUrinerazepam Not Cutoff: 10 Dalmane Urine (test code = Detected ng/mL 23569-0) 2-Hydroxy Ethyl Not Cutoff: 10 Metabolite o f Flurazepam Flurazepam Urine Detected ng/mL (test code = 42347-9) Lorazepam Urine Not Cutoff: 10 Ativan (test code = Detected ng/mL 42824-3) Lorazepam Not Cutoff: 50 Metabolite of L orazepam Glucuronide Urine Detected ng/mL (test code = 47513-4) Midazolam Urine Not Cutoff: 10 Versed (test code = Detected ng/mL 09354-7) Alpha-Hydroxy Not Cutoff: 10 Metabolite of Midazolam Midazolam Urine Detected ng/mL (test code = 37024-5) Oxazepam Urine Not Cutoff: 10 Serax; Also a metabolite of (test code = Detected ng/mL Chlordiazepoxid e, Diazepam, 63730-4) orTemazepam. Oxazepam Not Cutoff: 50 Metabolite of O xazepam Glucuronide Urine Detected ng/mL (test code = 61291-1) Prazepam Urine Not Cutoff: 10 Centrax (test code = Detected ng/mL 59647-4) Temazepam Urine Not Cutoff: 10 Restoril; Al so a metabolite of (test code = Detected ng/mL Diazepam. 79792-8) Temazepam Not Cutoff: 50 Metabolite of T emazepam Glucuronide Urine Detected ng/mL (test code = 79630-7) Triazolam Urine Not Cutoff: 10 Halcion (test code = Detected ng/mL 33577-8) Alpha-Hydroxy Not Cutoff: 10 Metabolite of Triazolam Triazolam Urine Detected ng/mL (test code = 06303-7) Zolpidem Urine Not Cutoff: 10 Ambien (test code = Detected ng/mL 89466-5) Zolpidem Present Cutoff: 10 A Metabolite of Z olpidem Uzxiy-0-Rmpvzriocl ng/mL Acid Urine (test code = 37509-2) Methamphetamine Not Cutoff: 100 Desoxyn (test code = Detected ng/mL 18560-2) Amphetamine (test Not Cutoff: 100 Dyanavel X R, Adzenys ER, code = 26553-2) Detected ng/mL Adderall, Vy vanse; Also ametabolite of methamphetamine 3,4-Methylenedioxy Not Cutoff: 100 methamphetamine Detected ng/mL (MDMA) (test code = 64865-8) 3,4-Methylenedioxy Not Cutoff: 100 -N-Ethylamphetamin Detected ng/mL e (MDEA) (test code = 55262-6) 3,4-Methylenedioxy Not Cutoff: 100 Also a me tabolite of MDMA amphetamine (MDA) Detected ng/mL and/or MDE A (test code = 78467-9) Ephedrine (test Not Cutoff: 100 code = 73659) Detected ng/mL Pseudoephedrine Present Cutoff: 100 A Sudafed (test code = ng/mL 43374) Phentermine (test Not Cutoff: 100 Adipex-P, Lomaira, Qsymia code = 38051-0) Detected ng/mL Phencyclidine Not Cutoff: 20 (PCP) (test code = Detected ng/mL 53640-1) Methylphenidate Not Cutoff: 20 Ritalin, Con certa (test code = Detected ng/mL 97473-0) Ritalinic acid Not Cutoff: 100 Metabolite of methylphenidate (test code = Detected ng/mL 36672) Stimulant See Test detected t he presence of Interpretation Footnote pseudoephedri ne. Suspect useof (test code = pseudoephedrine within the past 80426-9) three days. ----ADDITIONAL INFORMATION---- T his test was de veloped and its performance characteristics determined by [facility] in a manner consistent with CLJasmniequirement s. This test has not been cleare d or approved bythe U.S. Food and Drug Administration. Test Performed by:[facility] [id number] [place], [place] [address]Cue Dir ronnie: Moe Guzman M.D. Ph.D.; CLIA# [id number] Patients Current NOT ---------ADDITIONAL Medications (test ANSWERED INFORMATIO N A code = 25503-8) ccuracy and completeness of declared medica tions onreports solely dependen t on information submitted bymarco a umaña. Lab Interpretation Abnormal (test code = 06287-0) [facility] [place], [id number] 09:20:34 Test Item Value Reference Interpretation Comments Range Urine Creatinine 55.1 mg/dL (test code = 2161-8) Urine Specific 1.014 [place] (test code = 5810-7) Urine Ph (test 6.2 code = 2756-5) Urine Oxidants Negative Cutoff: 200 (test code = mg/L 51272-4) Urine Comment Normal (test code = 40132-1) U Negative Cutoff: 200 Barbiturates-Murdo ng/mL (test code = 63160-8) U Cocaine l-Murdo Negative Cutoff: 150 This coca ine immunoassay (test code = ng/mL targets benzoyl ecgonine 95965-0) theprimary meta bolite of cocaine. U THC-Luu (test See Cutoff: 50 A RESULT: Pre sumptive code = 37431-5) Footnote ng/mL PositiveThis immunoassay targets delta-9 tetrahydrocanna [...] code Not Cutoff: 25 Tylenol 3 = 35545-1) Detected ng/mL Ecdkraa-4-olkq-glu Not Cutoff: 100 Metabolit e of codeine curonide (test Detected ng/mL code = 05182-9) Morphine (test Not Cutoff: 25 AviGayle peter n, MS Contin; Also code = 29052-1) Detected ng/mL a minor meta bolite (10%) ofcodeine and c an be seen in low concentrati ons (<2,000ng/mL) w ith poppy seed ingestion. Exzkwvdl-0-ywkd-gl Not Cutoff: 100 Metabolit e of morphine ucuronide (test Detected ng/mL code = 33494-1) 6-monoacetylmorphi Not Cutoff: 25 Metabolit e of heroin ne (test code = Detected ng/mL 89625-1) Hydrocodone (test Not Cutoff: 25 Lortab, No rco, Vicodin; Also a code = 91859-6) Detected ng/mL very minor m etabolite ofcodeine and impurity (< 1%) of oxycodone. Norhydrocodone Not Cutoff: 25 Metabolite of hydrocodone (test code = Detected ng/mL 07906-4) Dihydrocodeine Not Cutoff: 25 Metabolite of hydrocodone (test code = Detected ng/mL 17969-2) Hydromorphone Not Cutoff: 25 Dilaudid, Exal go; Also a (test code = Detected ng/mL metabolite of h ydrocodone and 68519-5) aminor (<5%) me tabolite of morphine. Uyvqviwxdazlm-1-nr Not Cutoff: 100 Metabolit e of hydromorphone ta-glucuronide Detected ng/mL (test code = 75263-3) Oxycodone (test Present Cutoff: 25 A Endocet, Per cocet, Oxycontin code = 49802-5) ng/mL Noroxycodone (test Present Cutoff: 25 A Metabolit e of oxycodone code = 72167-5) ng/mL Oxymorphone (test Not Cutoff: 25 Numorphan, Opana; Also a code = 26139-2) Detected ng/mL metabolite o f oxycodone. Glounpmstpu-6-ycmu Not Cutoff: 100 Metabolit e of oxymorphone -glucuronide (test Detected ng/mL and/or na loxone (nornaloxone) code = 64834-4) Noroxymorphone Present Cutoff: 25 A Metabolite of oxymorphone (test code = ng/mL and/or naloxone (nornaloxone) 76050-8) Fentanyl (test Not Cutoff: 2 Actiq, Durage sic, Fentora code = 97087-4) Detected ng/mL Norfentanyl (test Not Cutoff: 2 Metabolite of fentanyl code = 99416-0) Detected ng/mL Meperidine (test Not Cutoff: 25 Demerol code = 53231-1) Detected ng/mL Normeperidine Not Cutoff: 25 Metabolite of meperidine (test code = Detected ng/mL 05320-4) Naloxone (test Not Cutoff: 25 Narcan code = 53344-7) Detected ng/mL Wlxjqfcu-8-vjvb-gl Not Cutoff: 100 Metabolit e of naloxone ucuronide (test Detected ng/mL code = 84969-8) U Methadone (test Not Cutoff: 25 Dolophine code = 05841-5) Detected ng/mL EDDP (test code = Not Cutoff: 25 Metabolite of methadone 93119-8) Detected ng/mL Propoxyphene (test Not Cutoff: 25 Darvon, D arvocet code = 74955-9) Detected ng/mL Norpropoxyphene Not Cutoff: 25 Metabolite o f propoxyphene (test code = Detected ng/mL 03887-3) Tramadol (test Not Cutoff: 25 Tradol, Ultra m, Ultracet code = 27937-9) Detected ng/mL O-desmethyltramado Not Cutoff: 25 Metabolit e of tramadol l (test code = Detected ng/mL 26363-5) Tapentadol (test Not Cutoff: 25 Nucynta code = 91771-9) Detected ng/mL Wxswcnvrgj-sdhd-nw Not Cutoff: 100 Metabolit e of tapentadol ucuronide (test Detected ng/mL code = 66683-3) Buprenorphine Not Cutoff: 5 Buprenex, Subo xone (test code = Detected ng/mL 86605-7) Norbuprenorphine Not Cutoff: 5 Metabolite of buprenorphine (test code = Detected ng/mL 92282-7) Norbuprenorphine Not Cutoff: 20 Metabolite of buprenorphine Glucuronide (test Detected ng/mL code = 18979-4) Benzodiazepine See Test detected the presence of Interp Urine (test Footnote alprazola m and two of code = 20574-8) itsmetabolit es (alpha-hydroxya lprazolam andalpha-hydrox yalprazolam glucuronide). S uspect use ofalprazolam wi thin the past three days. Hailey t detected the presence of zol pidem pcmfjr-4-ggihpx ylicacid (metabolite of zolpidem) only. Suspect use of zolpidemwithin the past four d ays. ----ADDITIONAL INFORMATION---- T his test was de veloped and its performance characteristics determined by [facility] in a manner consistent with CLIArequirement s. This test has not been cleare d or approved bythe U.S. Food and Drug Administration. Alprazolam Urine Present Cutoff: 10 A Xanax (test code = ng/mL 59380-3) Alpha-Hydroxyalpra Present Cutoff: 10 A Metabolit e of Alprazolam zolam Urine (test ng/mL code = 13229-3) Alpha-Hydroxyalpra Present Cutoff: 50 A Metabolit e of Alprazolam zolam Glucuronide ng/mL Urine (test code = 77085-7) Chlordiazepoxide Not Cutoff: 10 Librium Urine (test code = Detected ng/mL 57559-6) Colbazam Urine Not Cutoff: 10 Frisium, Onfi (test code = Detected ng/mL 87578-7) N-Desmethylclobaza Not Cutoff: 200 Metabolit e of Clobazam m Urine (test code Detected ng/mL = 91309-8) Clonazepam Urine Not Cutoff: 10 Klonopin, R ivotril (test code = Detected ng/mL 20102-6) 7-Aminoclonazepam Not Cutoff: 10 Metabolite of Clonazepam Urine (test code = Detected ng/mL 58999-2) Diazepam Urine Not Cutoff: 10 Valium (test code = Detected ng/mL 51470-2) Nordiazepam Urine Not Cutoff: 10 Metabolite of Chlordiazepoxide, (test code = Detected ng/mL Diazepam, or Pr azepam. 29537-9) Flunitrazepam Not Cutoff: 10 Rohypnol Urine (test code = Detected ng/mL 62333-8) 7-Aminoflunitrazep Not Cutoff: 10 Metabolit e of Flunitrazepam am Urine (test Detected ng/mL code = 15194-4) FlUrinerazepam Not Cutoff: 10 Dalmane Urine (test code = Detected ng/mL 03866-8) 2-Hydroxy Ethyl Not Cutoff: 10 Metabolite o f Flurazepam Flurazepam Urine Detected ng/mL (test code = 20711-3) Lorazepam Urine Not Cutoff: 10 Ativan (test code = Detected ng/mL 20577-5) Lorazepam Not Cutoff: 50 Metabolite of L orazepam Glucuronide Urine Detected ng/mL (test code = 21056-9) Midazolam Urine Not Cutoff: 10 Versed (test code = Detected ng/mL 54177-9) Alpha-Hydroxy Not Cutoff: 10 Metabolite of Midazolam Midazolam Urine Detected ng/mL (test code = 20232-1) Oxazepam Urine Not Cutoff: 10 Serax; Also a metabolite of (test code = Detected ng/mL Chlordiazepoxid e, Diazepam, 66270-7) orTemazepam. Oxazepam Not Cutoff: 50 Metabolite of O xazepam Glucuronide Urine Detected ng/mL (test code = 12775-2) Prazepam Urine Not Cutoff: 10 Centrax (test code = Detected ng/mL ) Temazepam Urine Not Cutoff: 10 Restoril; Al so a metabolite of (test code = Detected ng/mL Diazepam. ) Temazepam Not Cutoff: 50 Metabolite of T emazepam Glucuronide Urine Detected ng/mL (test code = 96042-4) Triazolam Urine Not Cutoff: 10 Halcion (test code = Detected ng/mL ) Alpha-Hydroxy Not Cutoff: 10 Metabolite of Triazolam Triazolam Urine Detected ng/mL (test code = 52408-5) Zolpidem Urine Not Cutoff: 10 Ambien (test code = Detected ng/mL 13732-1) Zolpidem Present Cutoff: 10 A Metabolite of Z olpidem Pcinp-0-Czmtkxgdaa ng/mL Acid Urine (test code = 57602-0) Methamphetamine Not Cutoff: 100 Desoxyn (test code = Detected ng/mL 96990-0) Amphetamine (test Not Cutoff: 100 Dyanavel X R, Adzenys ER, code = 07384-9) Detected ng/mL Adderall, Vy vanse; Also ametabolite of methamphetamine 3,4-Methylenedioxy Not Cutoff: 100 methamphetamine Detected ng/mL (MDMA) (test code = 56665-9) 3,4-Methylenedioxy Not Cutoff: 100 -N-Ethylamphetamin Detected ng/mL e (MDEA) (test code = 28427-8) 3,4-Methylenedioxy Not Cutoff: 100 Also a me tabolite of MDMA amphetamine (MDA) Detected ng/mL and/or MDE A (test code = 56329-5) Ephedrine (test Not Cutoff: 100 code = 16006) Detected ng/mL Pseudoephedrine Present Cutoff: 100 A Sudafed (test code = ng/mL 82864) Phentermine (test Not Cutoff: 100 Adipex-P, Lomaira, Qsymia code = 22172-1) Detected ng/mL Phencyclidine Not Cutoff: 20 (PCP) (test code = Detected ng/mL 50066-1) Methylphenidate Not Cutoff: 20 Ritalin, Con certa (test code = Detected ng/mL 68606-0) Ritalinic acid Not Cutoff: 100 Metabolite of methylphenidate (test code = Detected ng/mL 57644) Stimulant See Test detected t he presence of Interpretation Footnote pseudoephedri ne. Suspect useof (test code = pseudoephedrine within the past 02614-1) three days. ----ADDITIONAL INFORMATION---- T his test was de veloped and its performance characteristics determined by [facility] in a manner consistent with CLIArequirement s. This test has not been cleare d or approved bythe U.S. Food and Drug Administration. [facility] [id number] [place], [place] [address]Rcb Dir ronnie: Moe Guzman M.D. Ph.D.; CLIA# [id number] Patients Current NOT ---------ADDITIONAL Medications (test ANSWERED INFORMATIO N A code = 73286-2) ccuracy and completeness of declared medica tions onreports solely dependen t on information submitted bymarco a umaña. Lab Interpretation Abnormal (test code = 40298-5) [facility] [place]rolled [place] Monitoring Panel, [id number] 09:20:34 Test Item Value Reference Interpretation Comments Range Urine Creatinine 55.1 mg/dL (test code = 2161-8) Urine Specific 1.014 [place] (test code = 5810-7) Urine Ph (test 6.2 code = 2756-5) Urine Oxidants Negative Cutoff: 200 (test code = mg/L 47269-0) Urine Comment Normal (test code = 93221-1) U Negative Cutoff: 200 Barbiturates-Murdo ng/mL (test code = 04464-3) U Cocaine Lvl-Murdo Negative Cutoff: 150 This coca ine immunoassay (test code = ng/mL targets benzoyl ecgonine 88854-1) theprimary meta bolite of cocaine. [facility] ([facility] See Cutoff: 50 A RESULT: Pre sumptive code = 80688-0) Footnote ng/mL PositiveThis immunoassay targets delta-9 tetrahydrocanna [...] code Not Cutoff: 25 Tylenol 3 = 94862-6) Detected ng/mL Jvylbax-4-jebi-glu Not Cutoff: 100 Metabolit e of codeine curonide (test Detected ng/mL code = 22199-0) Morphine (test Not Cutoff: 25 Gayle Mary n, MS Contin; Also code = 42089-0) Detected ng/mL a minor meta bolite (10%) ofcodeine and c an be seen in low concentrati ons (<2,000ng/mL) w ith poppy seed ingestion. Zfmnbrpe-7-ilrk-gl Not Cutoff: 100 Metabolit e of morphine ucuronide (test Detected ng/mL code = 34980-1) 6-monoacetylmorphi Not Cutoff: 25 Metabolit e of heroin ne (test code = Detected ng/mL 30837-9) Hydrocodone (test Not Cutoff: 25 Lortab, No rco, Vicodin; Also a code = 70455-6) Detected ng/mL very minor m etabolite ofcodeine and impurity (< 1%) of oxycodone. Norhydrocodone Not Cutoff: 25 Metabolite of hydrocodone (test code = Detected ng/mL 42888-7) Dihydrocodeine Not Cutoff: 25 Metabolite of hydrocodone (test code = Detected ng/mL 43391-5) Hydromorphone Not Cutoff: 25 Dilaudid, Exal go; Also a (test code = Detected ng/mL metabolite of h ydrocodone and 63867-4) aminor (<5%) me tabolite of morphine. Arkhcgukvlmoo-1-nk Not Cutoff: 100 Metabolit e of hydromorphone ta-glucuronide Detected ng/mL (test code = 06477-4) Oxycodone (test Present Cutoff: 25 A Endocet, Per cocet, Oxycontin code = 94768-8) ng/mL Noroxycodone (test Present Cutoff: 25 A Metabolit e of oxycodone code = 24727-6) ng/mL Oxymorphone (test Not Cutoff: 25 Numorphan, Opana; Also a code = 42673-1) Detected ng/mL metabolite o f oxycodone. Kmvuipgitti-9-jnhi Not Cutoff: 100 Metabolit e of oxymorphone -glucuronide (test Detected ng/mL and/or na loxone (nornaloxone) code = 26316-4) Noroxymorphone Present Cutoff: 25 A Metabolite of oxymorphone (test code = ng/mL and/or naloxone (nornaloxone) 48218-6) Fentanyl (test Not Cutoff: 2 Actiq, Durage sic, Fentora code = 32553-7) Detected ng/mL Norfentanyl (test Not Cutoff: 2 Metabolite of fentanyl code = 97289-1) Detected ng/mL Meperidine (test Not Cutoff: 25 Demerol code = 57096-9) Detected ng/mL Normeperidine Not Cutoff: 25 Metabolite of meperidine (test code = Detected ng/mL 77293-6) Naloxone (test Not Cutoff: 25 Narcan code = 48340-5) Detected ng/mL Syghppqs-0-dhev-gl Not Cutoff: 100 Metabolit e of naloxone ucuronide (test Detected ng/mL code = 36686-7) U Methadone (test Not Cutoff: 25 Dolophine code = 86916-5) Detected ng/mL EDDP (test code = Not Cutoff: 25 Metabolite of methadone 44835-8) Detected ng/mL Propoxyphene (test Not Cutoff: 25 Darvon, D arvocet code = 17956-2) Detected ng/mL Norpropoxyphene Not Cutoff: 25 Metabolite o f propoxyphene (test code = Detected ng/mL 15331-5) Tramadol (test Not Cutoff: 25 Tradol, Ultra m, Ultracet code = 65395-6) Detected ng/mL O-desmethyltramado Not Cutoff: 25 Metabolit e of tramadol l (test code = Detected ng/mL 71795-7) Tapentadol (test Not Cutoff: 25 Nucynta code = 35876-9) Detected ng/mL Zmnqcdsnas-jdjr-om Not Cutoff: 100 Metabolit e of tapentadol ucuronide (test Detected ng/mL code = 10013-2) Buprenorphine Not Cutoff: 5 Buprenex, Subo xone (test code = Detected ng/mL 16610-9) Norbuprenorphine Not Cutoff: 5 Metabolite of buprenorphine (test code = Detected ng/mL 43707-7) Norbuprenorphine Not Cutoff: 20 Metabolite of buprenorphine Glucuronide (test Detected ng/mL code = 23266-8) Benzodiazepine See Test detected the presence of Interp Urine (test Footnote alprazola m and two of code = 95226-6) itsmetabolit es (alpha-hydroxya lprazolam andalpha-hydrox yalprazolam glucuronide). S uspect use ofalprazolam wi thin the past three days. Hailey t detected the presence of zol pidem irrndd-3-otlyau ylicacid (metabolite of zolpidem) only. Suspect use of zolpidemwithin the past four d ays. ----ADDITIONAL INFORMATION---- T his test was de veloped and its performance characteristics determined by [facility] in a manner consistent with CLIArequirement s. This test has not been cleare d or approved bythe U.S. Food and Drug Administration. Alprazolam Urine Present Cutoff: 10 A Xanax (test code = ng/mL 63576-6) Alpha-Hydroxyalpra Present Cutoff: 10 A Metabolit e of Alprazolam zolam Urine (test ng/mL code = 70884-0) Alpha-Hydroxyalpra Present Cutoff: 50 A Metabolit e of Alprazolam zolam Glucuronide ng/mL Urine (test code = 40924-1) Chlordiazepoxide Not Cutoff: 10 Librium Urine (test code = Detected ng/mL 39258-5) Colbazam Urine Not Cutoff: 10 Frisium, Onfi (test code = Detected ng/mL 95754-6) N-Desmethylclobaza Not Cutoff: 200 Metabolit e of Clobazam m Urine (test code Detected ng/mL = 74831-3) Clonazepam Urine Not Cutoff: 10 Klonopin, R ivotril (test code = Detected ng/mL 07018-3) 7-Aminoclonazepam Not Cutoff: 10 Metabolite of Clonazepam Urine (test code = Detected ng/mL 00858-1) Diazepam Urine Not Cutoff: 10 Valium (test code = Detected ng/mL 94030-9) Nordiazepam Urine Not Cutoff: 10 Metabolite of Chlordiazepoxide, (test code = Detected ng/mL Diazepam, or Pr azepam. 80367-8) Flunitrazepam Not Cutoff: 10 Rohypnol Urine (test code = Detected ng/mL 83194-4) 7-Aminoflunitrazep Not Cutoff: 10 Metabolit e of Flunitrazepam am Urine (test Detected ng/mL code = 43215-5) FlUrinerazepam Not Cutoff: 10 Dalmane Urine (test code = Detected ng/mL 73965-3) 2-Hydroxy Ethyl Not Cutoff: 10 Metabolite o f Flurazepam Flurazepam Urine Detected ng/mL (test code = 73819-5) Lorazepam Urine Not Cutoff: 10 Ativan (test code = Detected ng/mL 20919-4) Lorazepam Not Cutoff: 50 Metabolite of L orazepam Glucuronide Urine Detected ng/mL (test code = 85324-2) Midazolam Urine Not Cutoff: 10 Versed (test code = Detected ng/mL 88733-6) Alpha-Hydroxy Not Cutoff: 10 Metabolite of Midazolam Midazolam Urine Detected ng/mL (test code = 77513-8) Oxazepam Urine Not Cutoff: 10 Serax; Also a metabolite of (test code = Detected ng/mL Chlordiazepoxid e, Diazepam, 51319-0) orTemazepam. Oxazepam Not Cutoff: 50 Metabolite of O xazepam Glucuronide Urine Detected ng/mL (test code = 83160-9) Prazepam Urine Not Cutoff: 10 Centrax (test code = Detected ng/mL 61648-6) Temazepam Urine Not Cutoff: 10 Restoril; Al so a metabolite of (test code = Detected ng/mL Diazepam. 43747-2) Temazepam Not Cutoff: 50 Metabolite of T emazepam Glucuronide Urine Detected ng/mL (test code = 53926-8) Triazolam Urine Not Cutoff: 10 Halcion (test code = Detected ng/mL 80138-7) Alpha-Hydroxy Not Cutoff: 10 Metabolite of Triazolam Triazolam Urine Detected ng/mL (test code = 28741-4) Zolpidem Urine Not Cutoff: 10 Ambien (test code = Detected ng/mL 52425-1) Zolpidem Present Cutoff: 10 A Metabolite of Z olpidem Cyhlv-6-Qvwhojrdfy ng/mL Acid Urine (test code = 62907-4) Methamphetamine Not Cutoff: 100 Desoxyn (test code = Detected ng/mL 93875-0) Amphetamine (test Not Cutoff: 100 Dyanavel X R, Adzenys ER, code = 18130-0) Detected ng/mL Adderall, Vy vanse; Also ametabolite of methamphetamine 3,4-Methylenedioxy Not Cutoff: 100 methamphetamine Detected ng/mL (MDMA) (test code = 53450-8) 3,4-Methylenedioxy Not Cutoff: 100 -N-Ethylamphetamin Detected ng/mL e (MDEA) (test code = 49369-5) 3,4-Methylenedioxy Not Cutoff: 100 Also a me tabolite of MDMA amphetamine (MDA) Detected ng/mL and/or MDE A (test code = 38461-7) Ephedrine (test Not Cutoff: 100 code = 35881) Detected ng/mL Pseudoephedrine Present Cutoff: 100 A Sudafed (test code = ng/mL 86353) Phentermine (test Not Cutoff: 100 Adipex-P, Lomaira, Qsymia code = 62056-8) Detected ng/mL Phencyclidine Not Cutoff: 20 (PCP) (test code = Detected ng/mL 16463-0) Methylphenidate Not Cutoff: 20 Ritalin, Con certa (test code = Detected ng/mL 51823-9) Ritalinic acid Not Cutoff: 100 Metabolite of methylphenidate (test code = Detected ng/mL ) Stimulant See Test detected t he presence of Interpretation Footnote pseudoephedri ne. Suspect useof (test code = pseudoephedrine within the past 71238-4) three days. ----ADDITIONAL INFORMATION---- T his test was de veloped and its performance characteristics determined by [facility] in a manner consistent with CLIArequirement s. This test has not been cleare d or approved bythe U.S. Food and Drug Administration. Test Performed by:[facility] ior Ofxxl[address] [place], [place] [address]Ayv Dir ronnie: Moe Guzman M.D. Ph.D.; IA# [id number] Patients Current NOT ---------ADDITIONAL Medications (test ANSWERED INFORMATIO N A code = 60105-5) ccuracy and completeness of declared medica tions onreports solely dependen t on information submitted bycli ent. Lab Interpretation Abnormal (test code = 24626-0) [facility] Urine Drug [id number] 18:30:48 Test Item Value Reference Range Interpretation Comments POC U Amp (test code Negative Negative Drug Ab use Cutoff = 94170-3) Concentration: Cutoff: 1000 ng /mL POC U Barbit (test Negative Negative Drug Abus e Cutoff code = 64216-9) Concentratio n: 300 ng/mL POC U Benzo (test Positive Negative A Drug Abuse Cutoff code = 98699-8) Concentratio n: Cutoff: 300 ng/ mL POC U Cocaine (test Negative Negative Drug Abu se Cutoff code = 54345-7) Concentratio n: Cutoff: 300 ng/ mL POC U THC (test code Positive Negative A Drug Ab use Cutoff = 6709) Concentration: Cutoff: 50 ng/m L POC U Methd (test Negative Negative Drug Abuse Cutoff code = 6701) Concentration: Cutoff: 300 ng/ mL POC U Mampht (test Negative Negative Drug Abus e Cutoff code = 11931-3) Concentratio n: Cutoff: 1000 ng /mL POC U Opiate (test Negative Negative Drug Abus e Cutoff code = 41962-0) Concentratio n: Cutoff: 2000 ng /mL POC U Oxycod (test Positive Negative A Drug Abus e Cutoff code = 36172-7) Concentratio n: Cutoff: 100 ng/ mL Due to the assa y cross reactivit y between Oxycodo ne and Opiates, an d lower sensitivi ty compared to GC- MS method, the hailey t results may be falsely positiv e or falsely negative. Confirmation wi th concurrent GC-M S results is recommended. POC U PCP (test code Negative Negative Drug Ab use Cutoff = 12333-9) Concentration: Cutoff: 25 ng/m L POC U TCA (test code Negative Negative Drug Ab use Cutoff = 09235-4) Concentration: Cutoff: 1000 ng /mL POC U PPX (test code Negative Negative Drug Ab use Cutoff = 61785-3) Concentration: Cutoff: 300 ng/ mL Method description: [...] testing. Lab Interpretation Abnormal (test code = 83471-7) [facility] Urine Drug [id number] 18:30:48 Test Item Value Reference Range Interpretation Comments POC U Amp (test code Negative Negative Drug Ab use Cutoff = 30510-5) Concentration: Cutoff: 1000 ng /mL POC U Barbit (test Negative Negative Drug Abus e Cutoff code = 30432-8) Concentratio n: 300 ng/mL POC U Benzo (test Positive Negative A Drug Abuse Cutoff code = 06351-1) Concentratio n: Cutoff: 300 ng/ mL POC U Cocaine (test Negative Negative Drug Abu se Cutoff code = 57277-2) Concentratio n: Cutoff: 300 ng/ mL POC U THC (test code Positive Negative A Drug Ab use Cutoff = 6709) Concentration: Cutoff: 50 ng/m L POC U Methd (test Negative Negative Drug Abuse Cutoff code = 6701) Concentration: Cutoff: 300 ng/ mL POC U Mampht (test Negative Negative Drug Abus e Cutoff code = 01070-0) Concentratio n: Cutoff: 1000 ng /mL POC U Opiate (test Negative Negative Drug Abus e Cutoff code = 59811-7) Concentratio n: Cutoff: 2000 ng /mL POC U Oxycod (test Positive Negative A Drug Abus e Cutoff code = 40598-2) Concentratio n: Cutoff: 100 ng/ mL Due to the assa y cross reactivit y between Oxycodo ne and Opiates, an d lower sensitivi ty compared to GC- MS method, the hailey t results may be falsely positiv e or falsely negative. Confirmation wi th concurrent GC-M S results is recommended. POC U PCP (test code Negative Negative Drug Ab use Cutoff = 68389-3) Concentration: Cutoff: 25 ng/m L POC U TCA (test code Negative Negative Drug Ab use Cutoff = 29038-9) Concentration: Cutoff: 1000 ng /mL POC U PPX (test code Negative Negative Drug Ab use Cutoff = 39898-4) Concentration: Cutoff: 300 ng/ mL Method description: [...] testing. Lab Interpretation Abnormal (test code = 73312-6) [facility] Urine Drug [id number] 18:30:48 Test Item Value Reference Range Interpretation Comments POC U Amp (test code Negative Negative Drug Ab use Cutoff = 37712-7) Concentration: Cutoff: 1000 ng /mL POC U Barbit (test Negative Negative Drug Abus e Cutoff code = 83709-8) Concentratio n: 300 ng/mL POC U Benzo (test Positive Negative A Drug Abuse Cutoff code = 52340-6) Concentratio n: Cutoff: 300 ng/ mL POC U Cocaine (test Negative Negative Drug Abu se Cutoff code = 02609-2) Concentratio n: Cutoff: 300 ng/ mL POC U THC (test code Positive Negative A Drug Ab use Cutoff = 6709) Concentration: Cutoff: 50 ng/m L POC U Methd (test Negative Negative Drug Abuse Cutoff code = 6701) Concentration: Cutoff: 300 ng/ mL POC U Mampht (test Negative Negative Drug Abus e Cutoff code = 66109-0) Concentratio n: Cutoff: 1000 ng /mL POC U Opiate (test Negative Negative Drug Abus e Cutoff code = 49316-6) Concentratio n: Cutoff: 2000 ng /mL POC U Oxycod (test Positive Negative A Drug Abus e Cutoff code = 19570-7) Concentratio n: Cutoff: 100 ng/ mL Due to the assa y cross reactivit y between Oxycodo ne and Opiates, an d lower sensitivi ty compared to GC- MS method, the hailey t results may be falsely positiv e or falsely negative. Confirmation wi th concurrent GC-M S results is recommended. POC U PCP (test code Negative Negative Drug Ab use Cutoff = 83448-5) Concentration: Cutoff: 25 ng/m L POC U TCA (test code Negative Negative Drug Ab use Cutoff = 47522-9) Concentration: Cutoff: 1000 ng /mL POC U PPX (test code Negative Negative Drug Ab use Cutoff = 48670-9) Concentration: Cutoff: 300 ng/ mL Method description: [...] testing. Lab Interpretation Abnormal (test code = 89196-3) [facility] Urine Drug [id number] 18:30:48 Test Item Value Reference Range Interpretation Comments POC U Amp (test code Negative Negative Drug Ab use Cutoff = 27969-9) Concentration: Cutoff: 1000 ng /mL POC U Barbit (test Negative Negative Drug Abus e Cutoff code = 15254-7) Concentratio n: 300 ng/mL POC U Benzo (test Positive Negative A Drug Abuse Cutoff code = 52825-3) Concentratio n: Cutoff: 300 ng/ mL POC U Cocaine (test Negative Negative Drug Abu se Cutoff code = 47674-4) Concentratio n: Cutoff: 300 ng/ mL POC U THC (test code Positive Negative A Drug Ab use Cutoff = 6709) Concentration: Cutoff: 50 ng/m L POC U Methd (test Negative Negative Drug Abuse Cutoff code = 6701) Concentration: Cutoff: 300 ng/ mL POC U Mampht (test Negative Negative Drug Abus e Cutoff code = 87921-3) Concentratio n: Cutoff: 1000 ng /mL POC U Opiate (test Negative Negative Drug Abus e Cutoff code = 88553-2) Concentratio n: Cutoff: 2000 ng /mL POC U Oxycod (test Positive Negative A Drug Abus e Cutoff code = 34650-8) Concentratio n: Cutoff: 100 ng/ mL Due to the assa y cross reactivit y between Oxycodo ne and Opiates, an d lower sensitivi ty compared to GC- MS method, the hailey t results may be falsely positiv e or falsely negative. Confirmation wi th concurrent GC-M S results is recommended. POC U PCP (test code Negative Negative Drug Ab use Cutoff = 22383-8) Concentration: Cutoff: 25 ng/m L POC U TCA (test code Negative Negative Drug Ab use Cutoff = 67997-8) Concentration: Cutoff: 1000 ng /mL POC U PPX (test code Negative Negative Drug Ab use Cutoff = 01061-4) Concentration: Cutoff: 300 ng/ mL Method description: [...] testing. Lab Interpretation Abnormal (test code = 65501-6) [facility] [place] PCR- Asymptomatic [id number] 03:09:25 Test Item Value Reference Range Interpretation Comments COVID19 (SARS Not Detected Not Detected CoV-2) Result (test code = __This test is a 80312-5) qualitative reverse-transcr iptase polymerase alanna n reaction [...] patients provid ed by the manufacture r ([employer]) c an be reviewed at:https://www. [place].gov /media/054868/d ownload . A fact sheet for Health Care pro viders is provided by the land leases and rentals manager ([employer]) and can be reviewed at: https://www.fda .gov/me juliet/960023/down load Results must be interpreted wit hin [...] were verified by the Microbiology Laboratory at [facility], CLIA Accreditation # : [id number] and CAP Accreditation # : [id number]. COVID19 SARS RANGELAND MANAGEMENT SPECIALIST Swab Source (test code = 55340) COVID19 SARS Pre-Radiation Indication (test Therapy code = 10096) [facility]- Asymptomatic [id number] 03:09:25 Test Item Value Reference Range Interpretation Comments COVID19 (SARS Not Detected Not Detected CoV-2) Result (test code = __This test is a 74102-5) qualitative reverse-transcr iptase polymerase alanna n reaction [...] patients provid ed by the manufacture r ([employer]) c an be reviewed at:https://www. fda.gov /media/877633/d ownload . A fact sheet for Health Care pro viders is provided by the land leases and rentals manager ([employer]) and can be reviewed at: https://www.fda .gov/me juliet/958285/down load Results must be interpreted wit hin [...] were verified by the Microbiology [facility] at [facility], CLIA Accreditation # : [id number] and CAP Accreditation # : [id number]. COVID19 SARS RANGELAND MANAGEMENT SPECIALIST Swab Source (test code = 48602) COVID19 SARS Pre-Radiation Indication (test Therapy code = 32995) [facility] [place] (SARS[place]CoV-2) PCR- Asymptomatic [id number] 03:09:25 Test Item Value Reference Range Interpretation Comments COVID19 (SARS Not Detected Not Detected CoV-2) Result (test code = __This test is a 61384-2) qualitative reverse-transcr iptase polymerase alanna n reaction (RT-PC R) developed for t temo [employer] RUBY 680 0 system and inte nded for qualitative detection of SA RS CoV-2 RNA in nasopharyngeal and oropharyngeal s wab specimens colle cted from any indivi duals, including those suspected of CO VID-19 by their health care provider, and dillon clifford without symptom s or other reasons t o suspect COVID-1 9. A fact sheet for patients provid ed by the manufacture r ([employer]) c an be reviewed at:https://www. fda.gov /media/751938/d ownload . A fact sheet for Health Care pro viders is provided by the land leases and rentals manager ([employer]) and can be reviewed at: https://www.fda .gov/me juliet/852860/down load Results must be interpreted wit hin [...] were verified by the Microbiology [facility] at [facility], CLIA Accreditation # : [id number] and CAP Accreditation # : [id number]. COVID19 SARS RANGELAND MANAGEMENT SPECIALIST Swab Source (test code = 87567) COVID19 SARS Pre-Radiation Indication (test Therapy code = 80260) [facility]- Asymptomatic [id number] 03:09:25 Test Item Value Reference Range Interpretation Comments COVID19 (SARS Not Detected Not Detected CoV-2) Result (test code = __This test is a 07491-0) qualitative reverse-transcr iptase polymerase alanna n reaction [...] patients provid ed by the manufacture r ([employer]) c an be reviewed at:https://www. fda.gov /media/444134/d ownload . A fact sheet for Health Care pro viders is provided by the land leases and rentals manager ([employer]) and can be reviewed at: https://www.[place] .gov/me juliet/548938/down load Results must be interpreted wit hin [...] were verified by the Microbiology [facility] at [facility], CLIA Accreditation # : [id number] and CAP Accreditation # : [id number]. COVID19 SARS RANGELAND MANAGEMENT SPECIALIST Swab Source (test code = 82221) COVID19 SARS Pre-Radiation Indication (test Therapy code = 98142) [facility] [id number] 00:43:46 Test Item Value Reference Range Interpretation Comments pH Raghavendra (test code = 7.40 7.32-7.43 Results are 2746-6) corrected for a body temp of 37C pCO2 Raghavendra (test code = 47.6 See_Comment [Auto mated message] 2021-01) The system [employer] generated this result transmit kaylie reference range : 41.0 - 51.0 mmH g. The reference r pinky was not used to interpret this result as normal/abnormal . pO2 Raghavendra (test code = 52 mmHg 2705-2) HCO3 Raghavendra (test code = 29 mmol/L 21-28 H 49773-3) Base Excess Raghavendra (test 3 mmol/L -2-3 code = 1927-3) O2 Sat Raghavendra (test code = 87 % 2711-0) Lab Interpretation (test Abnormal code = 29975-5) [facility] [id number] 00:43:46 Test Item Value Reference Range Interpretation Comments pH Raghavendra (test code = 7.40 7.32-7.43 Results are 2746-6) corrected for a body temp of 37C pCO2 Raghavendra (test code = 47.6 See_Comment [Auto mated message] 2021-01) The system [employer] generated this result transmit kaylie reference range : 41.0 - 51.0 mmH g. The reference r pinky was not used to interpret this result as normal/abnormal . pO2 Raghavendra (test code = 52 mmHg 2705-2) HCO3 Raghavendra (test code = 29 mmol/L 21-28 H 15844-5) Base Excess Raghavendra (test 3 mmol/L -2-3 code = 1927-3) O2 Sat Raghavendra (test code = 87 % 2711-0) Lab Interpretation (test Abnormal code = 17382-1) [facility] [id number] 00:43:46 Test Item Value Reference Range Interpretation Comments pH Raghavendra (test code = 7.40 7.32-7.43 Results are 2746-6) corrected for a body temp of 37C pCO2 Raghavendra (test code = 47.6 See_Comment [Auto mated message] 2021-01) The system [employer] generated this result transmit kaylie reference range : 41.0 - 51.0 mmH g. The reference r pinky was not used to interpret this result as normal/abnormal . pO2 Raghavendra (test code = 52 mmHg 2705-2) HCO3 Raghavendra (test code = 29 mmol/L 21-28 H 09181-6) Base Excess Raghavendra (test 3 mmol/L -2-3 code = 1927-3) O2 Sat Raghavendra (test code = 87 % 2711-0) Lab Interpretation (test Abnormal code = 93035-5) [facility] [id number] 00:43:46 Test Item Value Reference Range Interpretation Comments pH Raghavendra (test code = 7.40 7.32-7.43 Results are 2746-6) corrected for a body temp of 37C pCO2 Raghavendra (test code = 47.6 See_Comment [Auto mated message] 2021-01) The system [employer] generated this result transmit kaylie reference range : 41.0 - 51.0 mmH g. The reference r pinky was not used to interpret this result as normal/abnormal . pO2 Raghavendra (test code = 52 mmHg 2705-2) HCO3 Raghavendra (test code = 29 mmol/L 21-28 H 03370-3) Base Excess Raghavendra (test 3 mmol/L -2-3 code = 1927-3) O2 Sat Raghavendra (test code = 87 % 2711-0) Lab Interpretation (test Abnormal code = 04068-7) [facility] CenterKet[facility] Bodies [id number] 00:17:35 Test Item Value Reference Range Interpretation Comments UA Ketones (test code = 5797-6) NEG NEG mg/dL [facility] Center[facility] [id number] 00:17:35 Test Item Value Reference Range Interpretation Comments UA Ketones (test code = 5797-6) NEG NEG mg/dL [facility] Center[facility] Bodies [id number] 00:17:35 Test Item Value Reference Range Interpretation Comments UA Ketones (test code = 5797-6) NEG NEG mg/dL [facility] Center[facility] [id number] 00:17:35 Test Item Value Reference Range Interpretation Comments UA Ketones (test code = 5797-6) NEG NEG mg/dL [facility] [id number] 21:37:06 Test Item Value Reference Range Interpretation Comments POC Critical Comment See Note Test pe rformer notified (test code = 8955) Ordering Licensed Provider and /o r designee of POC Glucose Screen critical Results.. [facility]2023-02-10 21:37:06 Test Item Value Reference Range Interpretation Comments POC Critical Comment See Note Test pe rformer notified (test code = 8955) Ordering Licensed Provider and /o r designee of POC Glucose Screen critical Results.. [facility] [id number] 21:37:06 Test Item Value Reference Range Interpretation Comments POC Critical Comment See Note Test pe rformer notified (test code = 8955) Ordering Licensed Provider and /o r designee of POC Glucose Screen critical Results.. [facility] [id number] 21:37:06 Test Item Value Reference Range Interpretation Comments POC Critical Comment See Note Test pe rformer notified (test code = 8955) Ordering Licensed Provider and /o r designee of POC Glucose Screen critical Results.. [facility] [id number] 03:40:13 Test Item Value Reference Range Interpretation Comments POC VB pH (test code 7.46 7.31-7.41 H = 2746-6) POC VB pCO2 (test 42 See_Comment [Automate d message] code = 2021-01) The system [employer] generated this result transmitted ref erence range: 41 - 51 mmHg. The reference r pinky was not used to interpret this result as normal/abnor mal. POC VB pO2 (test 61 mmHg code = 2705-2) POC VB TCO2 (test 31 See_Comment H [Automate d message] code = 2026-11) The system [employer] generated this result transmitted ref erence range: 24 - 29 mEq/L. The reference r pinky was not used to interpret this result as normal/abnor mal. POC VB Bicarb (test 30 mmol/L 23-28 H code = 27150-9) POC VB Base Ex (test 5 mmol/L -2-3 H code = 1927-3) POC VB O2 Sat (test 92 % code = 2711-0) POC VB LAC (test 2.4 mmol/L 0.9-1.7 H Method desc ription: code = 2519-7) The i-STAT is an analyzer used f or in vitro quantific ation of various anal ytes in whole blood. The device uses a s agnelique disposable cart ridge which contains microfabricated sensors, a calibration kaye ution, fluidics system , and a waste chamber . Each test cartridge contains chemic ally sensitive biose nsors on a [employer] ip that are config ured to perform spec ific tests. The microfabricated sensors measure analyte concent ration by an electroch emical assay. POC Sample Type Venous (test code = 6690) POC Clean Dev (test Yes code = 6672) Performing Lab (test MDA Main Main Ca mpus code = 41552) [facility] nical Lab, [address] [place], [place] [address] [address]; Timber Poisoner: Margarita Jacob MD; Waived Point of Care Testing - Gabrielle aaron MD Lab Interpretation Abnormal (test code = 98232-9) [facility] [id number] 03:40:13 Test Item Value Reference Range Interpretation Comments POC VB pH (test code 7.46 7.31-7.41 H = 2746-6) POC VB pCO2 (test 42 See_Comment [Automate d message] code = 2021-01) The system [facility] generated this result transmitted ref erence range: 41 - 51 mmHg. The reference r pinky was not used to interpret this result as normal/abnor mal. POC VB pO2 (test 61 mmHg code = 2705-2) POC VB TCO2 (test 31 See_Comment H [Automate d message] code = 2026-11) The system [employer] generated this result transmitted ref erence range: 24 - 29 mEq/L. The reference r pinky was not used to interpret this result as normal/abnor mal. POC VB Bicarb (test 30 mmol/L 23-28 H code = 48101-9) POC VB Base Ex (test 5 mmol/L [...] chemic ally sensitive biose nsors on a [employer] ip that are config ured to perform spec ific tests. The microfabricated sensors measure analyte concent ration by an electroch emical assay. POC Sample Type Venous (test code = 6690) POC Clean Dev (test Yes code = 6672) Performing Lab (test MDA Main Main Ca mpus code = 76639) [facility] Cli nical Lab, [address] [place] [address] [place] [address]; Timber Poisoner: Margarita Jacob MD; Waived Point of Care Testing - Gabrielle aaron MD Lab Interpretation Abnormal (test code = 58004-2) [facility] VBG+[id number] 03:40:13 Test Item Value Reference Range Interpretation Comments POC VB pH (test code 7.46 7.31-7.41 H = 2746-6) POC VB pCO2 (test 42 See_Comment [Automate d message] code = 2021-01) The system [employer] generated this result transmitted ref erence range: 41 - 51 mmHg. The reference r pinky was not used to interpret this result as normal/abnor mal. POC VB pO2 (test 61 mmHg code = 2705-2) POC VB TCO2 (test 31 See_Comment H [Automate d message] code = 2026-11) The system [employer] generated this result transmitted ref erence range: 24 - 29 mEq/L. The reference r pinky was not used to interpret this result as normal/abnor mal. POC VB Bicarb (test 30 mmol/L 23-28 H code = 74016-4) POC VB Base Ex (test 5 mmol/L [...] which contains microfabricated sensors, a calibration kaye [employer], fluidics system , and a waste chamber . Each test cartridge contains chemic ally sensitive biose nsors on a [employer] ip that are config ured to perform spec ific tests. The microfabricated sensors measure analyte concent ration by an electroch emical assay. POC Sample Type Venous (test code = 6690) POC Clean Dev (test Yes code = 6672) Performing Lab (test MDA Main Main Ca mpus code = 39317) [facility] Cli nical Lab, [address] [place] [address] [place] [address]; Timber Poisoner: Margarita Jacob MD; Waived Point of Care Testing - Gabrielle aaron MD Lab Interpretation Abnormal (test code = 46467-2) [facility] V[facility]+[id number] 03:40:13 Test Item Value Reference Range Interpretation Comments POC VB pH (test code 7.46 7.31-7.41 H = 2746-6) POC VB pCO2 (test 42 See_Comment [Automate d message] code = 2021-01) The system [employer] generated this result transmitted ref erence range: [...] (test 30 mmol/L 23-28 H code = 38398-5) POC VB Base Ex (test 5 mmol/L [...] chemic ally sensitive biose nsors on a [employer] ip that are config ured to perform spec ific tests. The microfabricated sensors measure analyte concent ration by an electroch emical assay. POC Sample Type Venous (test code = 6690) POC Clean Dev (test Yes code = 6672) Performing Lab (test MDA Main Main Ca mpus code = 37666) [facility]ical Lab, [address] [place] [address], [place] [address]; Timber Poisoner: Margarita Jacob MD; Waived Point of Care Testing - Gabrielle aaron MD Lab Interpretation Abnormal (test code = 89989-1) [facility]2023-02-09 00:46:13 Test Item Value Reference Range Interpretation Comments Ammonia (test code = 18 See_Comment [Autom ated message] The 10213-9) system which ge nerated this result tra nsmitted reference range : 11 - 51 mcmol/L. The re ference range was not u sed to interpret this result as normal/abnormal . [facility]2023-02-09 00:46:13 Test Item Value Reference Range Interpretation Comments Ammonia (test code = 18 See_Comment [Autom ated message] The 74627-5) system which ge nerated this result tra nsmitted reference range : 11 - 51 mcmol/L. The re ference range was not u sed to interpret this result as normal/abnormal . [place] 18307-02-09 00:46:13 Test Item Value Reference Range Interpretation Comments Ammonia (test code = 18 See_Comment [Autom ated message] The 10841-2) system which ge nerated this result tra nsmitted reference range : 11 - 51 mcmol/L. The re ference range was not u sed to interpret this result as normal/abnormal . [place] 18307-02-09 00:46:13 Test Item Value Reference Range Interpretation Comments Ammonia (test code = 18 See_Comment [Autom ated message] The 50445-5) system which ge nerated this result tra nsmitted reference range : 11 - 51 mcmol/L. The re ference range was not u sed to interpret this result as normal/abnormal . [facility] -[id number] 16:59:59 Test Item Value Reference Range Interpretation Comments Molecular Diagnostics (Received) Yes (test code = 8400) Jael Ap Link (test code = 01020) [id number] Block Number (Qualitative) (test BLANK code = 8193) Outside Accession (Qualitative) [id number] (test code = 8405) [facility] -[id number] 16:59:59 Test Item Value Reference Range Interpretation Comments Molecular Diagnostics (Received) Yes (test code = 8400) Jael Ap Link (test code = 37187) [id number] Block Number (Qualitative) (test BLANK code = 8193) Outside Accession (Qualitative) [id number] (test code = 8405) [facility] -[id number] 16:59:59 Test Item Value Reference Range Interpretation Comments Molecular Diagnostics (Received) Yes (test code = 8400) Jael Ap Link (test code = 46412) [id number] Block Number (Qualitative) (test BLANK code = 8193) Outside Accession (Qualitative) [id number] (test code = 8405) [facility] -[id number] 16:59:59 Test Item Value Reference Range Interpretation Comments Molecular Diagnostics (Received) Yes (test code = 8400) Jael Ap Link (test code = 11416) [id number] Block Number (Qualitative) (test BLANK code = 8193) Outside Accession (Qualitative) [id number] (test code = 8405) [facility] Request 2022-12-04 14:02:11 Test Item Value Reference Range Interpretation Comments Archived Material The test is to be (test code = 45025) performed on tissue from case [id number]. The case report, slides, and blocks for the cited accession were retrieved from archives. The pathologist examined the candidate H&E slide and selected the block appropriate to the specifications of the ordered molecular analysis. Unstained slides and H&E slide were prepared and forwarded to [facility] where the subject molecular test will be performed. Results will be reported separately. Pathologist [facility] Request 2022-12-04 14:02:11 Test Item Value Reference Range Interpretation Comments Archived Material The test is to be (test code = 24876) performed on tissue from case [id number]. The case report, slides, and blocks for the cited accession were retrieved from archives. The pathologist examined the candidate H&E slide and selected the block appropriate to the specifications of the ordered molecular analysis. Unstained slides and H&E slide were prepared and forwarded to [facility] where the subject molecular test will be performed. Results will be reported separately. [facility]ologist [facility] Request 2022-12-04 14:02:11 Test Item Value Reference Range Interpretation Comments Archived Material The test is to be (test code = 25066) performed on tissue from case [id number]. The case report, slides, and blocks for the cited accession were retrieved from archives. The pathologist examined the candidate H&E slide and selected the block appropriate to the specifications of the ordered molecular analysis. Unstained slides and H&E slide were prepared and forwarded to [facility] where the subject molecular test will be performed. Results will be reported separately. [facility]ologist [facility] Request 2022-12-04 14:02:11 Test Item Value Reference Range Interpretation Comments Archived Material The test is to be (test code = 00068) performed on tissue from case [id number]. The case report, slides, and blocks for the cited accession were retrieved from archives. The pathologist examined the candidate H&E slide and selected the block appropriate to the specifications of the ordered molecular analysis. Unstained slides and H&E slide were prepared and forwarded to [facility] where the subject molecular test will be performed. Results will be reported separately. [facility]ologist [facility] ALK [facility] Analysis Material [id number] 14:02:06 Test Item Value Reference Range Interpretation Comments Archived Material The test is to be (test code = 56436) performed on tissue from case [id number]. The case report, slides, and blocks for the cited accession were retrieved from archives. The pathologist examined the candidate H&E slide and selected the block appropriate to the specifications of the ordered molecular analysis. Unstained slides and H&E slide were prepared and forwarded to [facility] where the subject molecular test will be performed. Results will be reported separately. [facility]ologist [facility]K [facility] Material [id number] 14:02:06 Test Item Value Reference Range Interpretation Comments Archived Material The test is to be (test code = 20397) performed on tissue from case [id number]. The case report, slides, and blocks for the cited accession were retrieved from archives. The pathologist examined the candidate H&E slide and selected the block appropriate to the specifications of the ordered molecular analysis. Unstained slides and H&E slide were prepared and forwarded to [facility] where the subject molecular test will be performed. Results will be reported separately. Pathologist [facility] Material [id number] 14:02:06 Test Item Value Reference Range Interpretation Comments Archived Material The test is to be (test code = 59254) performed on tissue from case [id number]. The case report, slides, and blocks for the cited accession were retrieved from archives. The pathologist examined the candidate H&E slide and selected the block appropriate to the specifications of the ordered molecular analysis. Unstained slides and H&E slide were prepared and forwarded to [facility] where the subject molecular test will be performed. Results will be reported separately. Pathologist [facility]K [facility] Material [id number] 14:02:06 Test Item Value Reference Range Interpretation Comments Archived Material The test is to be (test code = 53382) performed on tissue from case [id number]. The case report, slides, and blocks for the cited accession were retrieved from archives. The pathologist examined the candidate H&E slide and selected the block appropriate to the specifications of the ordered molecular analysis. Unstained slides and H&E slide were prepared and forwarded to [facility] where the subject molecular test will be performed. Results will be reported separately. [facility]ologist [facility] EGFR Mutation Material Request 2022-12-04 14:02:01 Test Item Value Reference Range Interpretation Comments Archived Material The test is to be (test code = 38818) performed on tissue from case [id number]. The case report, slides, and blocks for the cited accession were retrieved from archives. The pathologist examined the candidate H&E slide and selected the block appropriate to the specifications of the ordered molecular analysis. Unstained slides and H&E slide were prepared and forwarded to [facility] where the subject molecular test will be performed. Results will be reported separately. [facility]ologist [facility] EGFR Mutation [facility] Request 2022-12-04 14:02:01 Test Item Value Reference Range Interpretation Comments Archived Material The test is to be (test code = 15734) performed on tissue from case [id number]. The case report, slides, and blocks for the cited accession were retrieved from archives. The pathologist examined the candidate H&E slide and selected the block appropriate to the specifications of the ordered molecular analysis. Unstained slides and H&E slide were prepared and forwarded to [facility] where the subject molecular test will be performed. Results will be reported separately. Pathologist [facility] EGFR Mutation [facility] Request 2022-12-04 14:02:01 Test Item Value Reference Range Interpretation Comments Archived Material The test is to be (test code = 92471) performed on tissue from case [id number]. The case report, slides, and blocks for the cited accession were retrieved from archives. The pathologist examined the candidate H&E slide and selected the block appropriate to the specifications of the ordered molecular analysis. Unstained slides and H&E slide were prepared and forwarded to [facility] where the subject molecular test will be performed. Results will be reported separately. Pathologist [facility] EGFR Mutation [facility] Request 2022-12-04 14:02:01 Test Item Value Reference Range Interpretation Comments Archived Material The test is to be (test code = 58322) performed on tissue from case [id number]. The case report, slides, and blocks for the cited accession were retrieved from archives. The pathologist examined the candidate H&E slide and selected the block appropriate to the specifications of the ordered molecular analysis. Unstained slides and H&E slide were prepared and forwarded to [facility] where the subject molecular test will be performed. Results will be reported separately. Pathologist [facility] ERBB2 Mutation Analysis Material [id number] 14:01:56 Test Item Value Reference Range Interpretation Comments Archived Material The test is to be (test code = 41413) performed on tissue from case [id number]. The case report, slides, and blocks for the cited accession were retrieved from archives. The pathologist examined the candidate H&E slide and selected the block appropriate to the specifications of the ordered molecular analysis. Unstained slides and H&E slide were prepared and forwarded to [facility] where the subject molecular test will be performed. Results will be reported separately. Pathologist [facility] ERBB2 Mutation Analysis Material [id number] 14:01:56 Test Item Value Reference Range Interpretation Comments Archived Material The test is to be (test code = 75100) performed on tissue from case [id number]. The case report, slides, and blocks for the cited accession were retrieved from archives. The pathologist examined the candidate H&E slide and selected the block appropriate to the specifications of the ordered molecular analysis. Unstained slides and H&E slide were prepared and forwarded to [facility] where the subject molecular test will be performed. Results will be reported separately. Pathologist [facility] ERBB2 Mutation Analysis Material [id number] 14:01:56 Test Item Value Reference Range Interpretation Comments Archived Material The test is to be (test code = 65419) performed on tissue from case [id number]. The case report, slides, and blocks for the cited accession were retrieved from archives. The pathologist examined the candidate H&E slide and selected the block appropriate to the specifications of the ordered molecular analysis. Unstained slides and H&E slide were prepared and forwarded to [facility] where the subject molecular test will be performed. Results will be reported separately. Pathologist [facility] ERBB2 Mutation Analysis Material [id number] 14:01:56 Test Item Value Reference Range Interpretation Comments Archived Material The test is to be (test code = 00361) performed on tissue from case [id number]. The case report, slides, and blocks for the cited accession were retrieved from archives. The pathologist examined the candidate H&E slide and selected the block appropriate to the specifications of the ordered molecular analysis. Unstained slides and H&E slide were prepared and forwarded to [facility] where the subject molecular test will be performed. Results will be reported separately. Pathologist [facility] MTOR Mutation Material Request 2022-12-04 14:01:51 Test Item Value Reference Range Interpretation Comments Archived Material The test is to be (test code = 65697) performed on tissue from case [id number]. The case report, slides, and blocks for the cited accession were retrieved from archives. The pathologist examined the candidate H&E slide and selected the block appropriate to the specifications of the ordered molecular analysis. Unstained slides and H&E slide were prepared and forwarded to [facility] where the subject molecular test will be performed. Results will be reported separately. Pathologist [facility] MTOR Mutation [facility] Request 2022-12-04 14:01:51 Test Item Value Reference Range Interpretation Comments Archived Material The test is to be (test code = 61168) performed on tissue from case [id number]. The case report, slides, and blocks for the cited accession were retrieved from archives. The pathologist examined the candidate H&E slide and selected the block appropriate to the specifications of the ordered molecular analysis. Unstained slides and H&E slide were prepared and forwarded to [facility] where the subject molecular test will be performed. Results will be reported separately. Pathologist [facility] MTOR Mutation [facility] Request 2022-12-04 14:01:51 Test Item Value Reference Range Interpretation Comments Archived Material The test is to be (test code = 54015) performed on tissue from case [id number]. The case report, slides, and blocks for the cited accession were retrieved from archives. The pathologist examined the candidate H&E slide and selected the block appropriate to the specifications of the ordered molecular analysis. Unstained slides and H&E slide were prepared and forwarded to [facility] where the subject molecular test will be performed. Results will be reported separately. Pathologist [facility] MTOR Mut[facility] Request 2022-12-04 14:01:51 Test Item Value Reference Range Interpretation Comments Archived Material The test is to be (test code = 38134) performed on tissue from case [id number]. The case report, slides, and blocks for the cited accession were retrieved from archives. The pathologist examined the candidate H&E slide and selected the block appropriate to the specifications of the ordered molecular analysis. Unstained slides and H&E slide were prepared and forwarded to [facility] where the subject molecular test will be performed. Results will be reported separately. Pathologist [facility] NTRK1 Fusion Material Request 2022-12-04 14:01:46 Test Item Value Reference Range Interpretation Comments Archived Material The test is to be (test code = 51311) performed on tissue from case [id number]. The case report, slides, and blocks for the cited accession were retrieved from archives. The pathologist examined the candidate H&E slide and selected the block appropriate to the specifications of the ordered molecular analysis. Unstained slides and H&E slide were prepared and forwarded to [facility] where the subject molecular test will be performed. Results will be reported separately. Pathologist [facility] NTRK1 Fusion Material Request 2022-12-04 14:01:46 Test Item Value Reference Range Interpretation Comments Archived Material The test is to be (test code = 05709) performed on tissue from case [id number]. The case report, slides, and blocks for the cited accession were retrieved from archives. The pathologist examined the candidate H&E slide and selected the block appropriate to the specifications of the ordered molecular analysis. Unstained slides and H&E slide were prepared and forwarded to [facility] where the subject molecular test will be performed. Results will be reported separately. Pathologist [facility] NTRK1 Fusion Material Request 2022-12-04 14:01:46 Test Item Value Reference Range Interpretation Comments Archived Material The test is to be (test code = 15413) performed on tissue from case [id number]. The case report, slides, and blocks for the cited accession were retrieved from archives. The pathologist examined the candidate H&E slide and selected the block appropriate to the specifications of the ordered molecular analysis. Unstained slides and H&E slide were prepared and forwarded to [facility] where the subject molecular test will be performed. Results will be reported separately. Pathologist [facility] NTRK1 Fusion Material Request 2022-12-04 14:01:46 Test Item Value Reference Range Interpretation Comments Archived Material The test is to be (test code = 07126) performed on tissue from case [id number]. The case report, slides, and blocks for the cited accession were retrieved from archives. The pathologist examined the candidate H&E slide and selected the block appropriate to the specifications of the ordered molecular analysis. Unstained slides and H&E slide were prepared and forwarded to [facility] where the subject molecular test will be performed. Results will be reported separately. Pathologist [facility] NTRK2 Fusion Material Request 2022-12-04 14:01:41 Test Item Value Reference Range Interpretation Comments Archived Material The test is to be (test code = 22103) performed on tissue from case [id number]. The case report, slides, and blocks for the cited accession were retrieved from archives. The pathologist examined the candidate H&E slide and selected the block appropriate to the specifications of the ordered molecular analysis. Unstained slides and H&E slide were prepared and forwarded to [facility] where the subject molecular test will be performed. Results will be reported separately. Pathologist [facility] NTRK2 Fusion Material Request 2022-12-04 14:01:41 Test Item Value Reference Range Interpretation Comments Archived Material The test is to be (test code = 64387) performed on tissue from case [id number]. The case report, slides, and blocks for the cited accession were retrieved from archives. The pathologist examined the candidate H&E slide and selected the block appropriate to the specifications of the ordered molecular analysis. Unstained slides and H&E slide were prepared and forwarded to [facility] where the subject molecular test will be performed. Results will be reported separately. Pathologist [facility] NTRK2 Fusion Material Request 2022-12-04 14:01:41 Test Item Value Reference Range Interpretation Comments Archived Material The test is to be (test code = 40245) performed on tissue from case [id number]. The case report, slides, and blocks for the cited accession were retrieved from archives. The pathologist examined the candidate H&E slide and selected the block appropriate to the specifications of the ordered molecular analysis. Unstained slides and H&E slide were prepared and forwarded to [facility] where the subject molecular test will be performed. Results will be reported separately. Pathologist [facility] NTRK2 Fusion Material Request 2022-12-04 14:01:41 Test Item Value Reference Range Interpretation Comments Archived Material The test is to be (test code = 78375) performed on tissue from case [id number]. The case report, slides, and blocks for the cited accession were retrieved from archives. The pathologist examined the candidate H&E slide and selected the block appropriate to the specifications of the ordered molecular analysis. Unstained slides and H&E slide were prepared and forwarded to [facility] where the subject molecular test will be performed. Results will be reported separately. Pathologist [facility] NTRK3 Fusion Material Request 2022-12-04 14:01:36 Test Item Value Reference Range Interpretation Comments Archived Material The test is to be (test code = 90761) performed on tissue from case [id number]. The case report, slides, and blocks for the cited accession were retrieved from archives. The pathologist examined the candidate H&E slide and selected the block appropriate to the specifications of the ordered molecular analysis. Unstained slides and H&E slide were prepared and forwarded to [facility] where the subject molecular test will be performed. Results will be reported separately. Pathologist [facility] NTRK[facility] Fusion Material Request 2022-12-04 14:01:36 Test Item Value Reference Range Interpretation Comments Archived Material The test is to be (test code = 25316) performed on tissue from case [id number]. The case report, slides, and blocks for the cited accession were retrieved from archives. The pathologist examined the candidate H&E slide and selected the block appropriate to the specifications of the ordered molecular analysis. Unstained slides and H&E slide were prepared and forwarded to [facility] where the subject molecular test will be performed. Results will be reported separately. Pathologist [facility] NTRK[facility] Fusion Material Request 2022-12-04 14:01:36 Test Item Value Reference Range Interpretation Comments Archived Material The test is to be (test code = 28815) performed on tissue from case [id number]. The case report, slides, and blocks for the cited accession were retrieved from archives. The pathologist examined the candidate H&E slide and selected the block appropriate to the specifications of the ordered molecular analysis. Unstained slides and H&E slide were prepared and forwarded to [facility] where the subject molecular test will be performed. Results will be reported separately. Pathologist [facility] NTRK[facility] Fusion Material Request 2022-12-04 14:01:36 Test Item Value Reference Range Interpretation Comments Archived Material The test is to be (test code = 69476) performed on tissue from case [id number]. The case report, slides, and blocks for the cited accession were retrieved from archives. The pathologist examined the candidate H&E slide and selected the block appropriate to the specifications of the ordered molecular analysis. Unstained slides and H&E slide were prepared and forwarded to [facility] where the subject molecular test will be performed. Results will be reported separately. [facility]ologist [facility] Interpretation 2022-11-27 23:08:26 Test Item Value Reference Range Interpretation Comments Materials Received (test l1zxrGExPNCgeVBqImDb code = 9973) UDOsKWOah8ctXOAvvLPz ZzEwMzNcZnRuYmpcdWMx UFAeMcTkj2zmw069qLUb q8cdFFOwLiM1fSNtUOLg mHYeY271FOSkUHfce1ug u3ZqLFBngFDon0D9MGKV ghynaLh8fZfgU83pj8X9 ThydL2yzBHGzKHJtO6Ga LO8hFYNuRik2OCH9SLC4 ZAJhQXYlV9IyRC1lVONf yTXrTUu1f2ucwIzaADFs TJI7p6gePFaaflKuWT5i hi1ggWp0r6yaryHfNNGw AOVueIJFWRDuH9TldNot Hh5fiVi7kEhnXrqjJCB6 Qin8YH0apl78cxe9fHbm WNIkwmfjDuL5OZkwLZEd uaskNAy1CFjlKWZdjYwm MFxtYXJncjcyMFxtYXJn fTA8DQSzrSWuY8NuVBRj PMafPRZubyp6XjKvBv5q aYIwdYddSSsyu4dll2pk gIQwAag9WHRyHnMbHjts XEwhf2Szs3hnRFOlvh3z TJK9qSCosJzcl7S1fNJk LZTukZNryxLlAHEkgg91 gRLnfYKdaGSnky2kqlLl bNKupYSgPIB2gOJrcfAc SKWaiVFyGVRsOM9wmJGx NBGwjG9vvmklCTKcHjSg eqffQIHymNkdeyQnBr8j lRqjOUE1OIheS9nqcV5g AlQ4CMajX2mwkL7yFFr4 RBhuhCO5DMTbrG4oBI6f uqngh8knGhQmJN5afmtt r0sfKfGjNC1kldj0v7vk JEQ0YEmvJEMaNiW4fiR4 NDBcaGVhZGVyeTcyMFxm k221LBX8TiPiOLTfz0Ce B7RveHhzD74ezBxgM69d MGAccQqesJ7xjSyauQ7x QqPyYkLxFTr5zd41EAt0 gwvhvMjwEVe1ooQwIADz DVZ3EMGivARvUBBkQ7o2 bpWoYDHcJPD8HSZjlEYn ZFNtD4j2ycMuPMZ4HUw2 cnBhZGRmdDNcdHJwYWRk YjBcdHJwYWRkZmIzXHRy xWKjvCEnfVUpwJ7gbOpy HGZjtOGlgT5uPFV7DQTi cmgzMjBcdHJoZHJcbHRy fa99LKTxgiAliMRevOzl zHFrZKD7EPCzVQZzANLu YMD5DKOpBbSfqpXeWJig bGJyZHJiXGJyZHJzXGJy QJO4FHDePmBzekHhKSsx bGJyZHJsXGJyZHJzXGJy EVL4GIAvQcTupkCeNKnt bGJyZHJyXGJyZHJzXGJy ZSX1ZHSvWfJzzrSlBJdv bHBhZHQxMFxjbHBhZGZ0 G6knzBYcUAAwIPrewMKu JXDbX1kmmSXvZSimWQVr cGFkZmwzXGNscGFkYjBc T1qjRCTyFtFdF4LafWy4 MDAwXGNsdmVydGFsdFxj zUCgOLW4XPSyWJNxYIEj APL4PCXyHxAhtwCkSBzx bGJyZHJiXGJyZHJzXGJy WIY6YMRbNkWhjgKfMBzb bGJyZHJsXGJyZHJzXGJy WSA8OZBjIcLgcoZsUDqb bGJyZHJyXGJyZHJzXGJy API4JQDeLtTxesGxEPwz bHBhZHQxMFxjbHBhZGZ0 X4kztIYjBPIkTLxrtOOy YDOqD5dtzFNrAPyjUPVl cGFkZmwzXGNscGFkYjBc Q9tlAGUmBvUaJ2UkzEi8 NjAwXGNsdmVydGFsdFxj uEZzPNT8FKGuZCZaHVEn HIP4GGApByCaceMmRYxg bGJyZHJiXGJyZHJzXGJy UDU1ROWiXdHzddFuDIeh bGJyZHJsXGJyZHJzXGJy KHQ4RAMtTeGdryCiZGzz bGJyZHJyXGJyZHJzXGJy OBG2KZNsVvDczyUtGGen bHBhZHQxMFxjbHBhZGZ0 M9jgwTJsZVRzFEksjWZc KQJxE5pgtWNfAMqwDQTi cGFkZmwzXGNscGFkYjBc K7tqFZRtRgWxX0YeuRm3 TmMtEZTgvoSvxH31Aakd n7SxVVSnWNE4DSqaYNds bFxwbGFpblxmMVxmczIw KBbbrpgvJXMzOXywW9nk TtMvGNQmtUqtHJpow0On XGYxXGNmMlxmczIwXGIg POWmAFCloG4hVwvqS9Pf fI9gYXarMgqsJ9ysAQVk y7SiwK3qDDqixNPaemmv MVxmczIwXGxhbmcxMDMz PYxnI1yiAzRtSMYdvAmy HWhdl4FiMGOaVQRdKjri zbHxBEj7qoEyDYCdsSja tQVqVAemjuEgaWzig4Gl bxJapOxjGLHjAWr6qsAy vqdpyBk0yIJekBytUFMm nSoteO2rKaNvFgFaERri bGFpblxmMVxmczIwXGxh suyrGKRjEStoE1qzOgFe WHFyjYfgUXmlf5EzUHAh WAXxKqeqqzMmVRVsR27y bGVjdGVkXHBsYWluXGYx XGZzMjBcbGFuZzEwMzNc aGljaFxmMVxkYmNoXGYx NDfqJ0siGnHoS4WvXGHk FxXerYFnJ0yrC7HtiBdw YXJkXGludGJsXHNzcGFy GNJ1uVHaleCzgCDwnNAk ROIbFXkdFMD5hHOwjucf lAUshjunYFnfvqG2TRVw YWluXGYxXGZzMjBcbGFu ZzEwMzNcaGljaFxmMVxk QiMpSHOvAPxxW7myKcNw F9KkUOFdCpXpXiABFLBh aXZlZFxwbGFpblxmMVxm czIwXGxhbmcxMDMzXGhp O6mwEvHgLRPgeGdmRPnf s6ZxTQYxUMNqRvgezgQe RPf7bfPpLHDydJxlrG70 Ocqmii42AMVlr6wjLSOj X3XcbUFwDCWjsRLrLOnt MDhcdHJwYWRkZmwzXHRy cGFkZHIxMDhcdHJwYWRk ZnIzXHRycGFkZHQwXHRy dCPwSVM4Q5c2kkZmJRYm NRo0edUuFGYaLpQlaQFf LSV6ZCg9TecrftA4zXRp Y7t3QfoeexZpVKpxpCOb ax28XQChcpMbqDFjtAql hFAdUFX0PBYhPHNvISJo URF5UPCeIsByglZgINse bGJyZHJiXGJyZHJzXGJy YJB0MEImBlQiebMyLEkp bGJyZHJsXGJyZHJzXGJy XZG2UPIdHzIqtoXtDIbg bGJyZHJyXGJyZHJzXGJy DPH2AHXlEnAxheFdBVce bHBhZHQxMFxjbHBhZGZ0 G9txlOBaDWFqMRpakFOv AKJdC3rjrIAzLYwdQWTm cGFkZmwzXGNscGFkYjBc E6tdXBGqVoRxZ9WenUl7 MDAwXGNsdmVydGFsdFxj dWRnAMB9VFNyLFGyIYOz OLH8LHNaNyYxynFmIBae bGJyZHJiXGJyZHJzXGJy KSB0GMRkKeDehaVuGOga bGJyZHJsXGJyZHJzXGJy TMX4IALkBfQmhyCkMYay bGJyZHJyXGJyZHJzXGJy OEL2ERCjMlOhohMcTTyx bHBhZHQxMFxjbHBhZGZ0 X1faoHMbAWDfAQrojWMm XJUsW5rziUDyCJbyNQRz cGFkZmwzXGNscGFkYjBc C4epXHDsMcRcU1BxgYo3 NjAwXGNsdmVydGFsdFxj dENpAPF5GQYjQVZhYMIb EVV0HUUyXkCbrhFfOQnd bGJyZHJiXGJyZHJzXGJy TGS4BFDxLsRcvhJxRZwp bGJyZHJsXGJyZHJzXGJy DUR7OFUpLmTxtaVtNGdq bGJyZHJyXGJyZHJzXGJy FCY4WRPrInUipcPtJFzj bHBhZHQxMFxjbHBhZGZ0 P6zwpEDcIUJeEVxnlKIo UJEqU6zhvYNzVUizOCUv cGFkZmwzXGNscGFkYjBc I9hpYXKdRkRuC1CgqQb2 LrUjWGSgfnZxvR74Jicy m8QeTGFzQMH8MCnuZYhw bFxwbGFpblxmMFxmczI0 XHBsYWluXGYxXGZzMjBc bGFuZzEwMzNcaGljaFxm RHehEoNcBKSwQMpvB4sp JjNtK9AaXYKvMuSxEY5t PuG1CCIbWWriNSA4QKDD CVFyXBRNM2RBWzaiUDGS O4WahRkfxJ4eLcTbFwRv GIcvMM3hRQWhI7ahaZKi UXRfEHJkA6xcMxSnsX4y aFxmMVxjZjJcZnMyMFxs dHJjaFxjZWxsXHBhcmRc cF99Giavr4RoEAKwPST6 MFxzMFxxbFxwbGFpblxm OVuhdjB6AEKyFXnqYSSh XGZzMjBcbGFuZzEwMzNc aGljaFxmMVxkYmNoXGYx DSnwC9jeHyLdQ9UlERNw MjAgMTIvMTYvMjAyMlxw bGFpblxmMVxmczIwXGxh rjclIZVlGDlaN3rqQjAd NAYyqQrpDZucb7OwHCTp OBMjLmoizoQtVDt1jfAo XGNlbGxccGFyZFxpbnRi sFmun6IqdbWlgNmtFNZe XHFsXHBsYWluXGYwXGZz UsVbmZgbwH9bOwDyDpLt TExmGL1wZJLtQ3fxuNHe TLEfMIFrV7uyFxAanW0h aFxmMVxjZjJcZnMyMCAx RxC6WkMsKsFryHwukT1c HlIlPnWoLWpmAU0hFBEs Z2uwfLUhSWAwIPOyN5qo BdYkdI6mmCyoECwqKvRk ZnMyMFxsdHJjaFxjZWxs HGiuoLTqAPStp5pcOFDp ZVGakNCfFCO7zQSpvyYm rNdwdSezxX1bLqUbKyGo NFxwbGFpblxmMVxmczIw HOyklccrDMVxTRurJ8kt NrPtWUNdeUkoJPfsq8Ai XGYxXGZzMjBccGFyfQ== Addendum 1 (test code = x7ajpZStDVEzhMLqOLIz 37) CmxpzyLuZZMdtHAiX0Ol bgkyZSryYO8fVU8zfQvo iZUlbFVeQKMdLdJdf8pd v777nMAxf9tkDQJTGUjr TARFACi3r7xnUEJWirbb uCs7rMizU92yu8T2Nnni Y80ddANpRUL3LFGvNUVb aKAoRSHlJTT4HUFjpHNf S1tzFAQwQU3efalaYBti UWuaPNPwcIL3YMBavKSw U8MdRELzAApfKDNslcn1 WiIbFq8geWBvkJuoTWoo YXJkXHBsYWluXGYxXGZz MjAgQXQgdGhlIHJlcXVl i6Trc3PihIvzUFBqOLL9 yS1mEEVdqYEyY0zxqhM2 fCOcGw5akC55bT0nLUZ3 kKAjVTDab2RlVZDdTIMr u2WyOZHxCH0hBPcwwBPm xOYngUEyFRA2AL4YIVAb AYVex48mUfZpcHXjWYTh qnQbtEKlKIEvXOZ3qH6c ciBjZWxscyBhcmUgbmVn PCVlvbCkLv2tKFmkblKr XHZeZFVgwEKprK89af2d yCT5b7KhVM4kV8VmTJRi SHs6a8ovAxIysESsTFLa clMbcIDeNEJqMFL2gF8o umCdDCvfsdShfzBajP3y aXRpdmUgIGZvciBjbGVh cpJsLJ4WHCNPGSKvAEV5 LJAuCCAxpNVjaM10hh6m xYY4x1JqOM3xB6SsPRWx XRd8t3wjXbKjdSAoQITd nqVUUC4CLWMhQ1vaheXs MjJDMywgRGFrbyBQaGFy cFQ0QTIOg87iuW6nHCOP s3ZdrNp1ADRDQ07wAPPo R0CXZTuuiDOtoDDkpyZ5 aGFuIDFccGFyXHBhclxp MYTeDOJth4F7MEonZy6r kAJ9uG9xANAeNRT9SSSq aXMgYXNzYXkgaXMgbWFu nCKqQ8F6bhBeXVX3XKEp aWxlbnQgRGFrbyBhbmQg xLStheFeCY0lii9epE1p PUzwWZ27tW4HKY1IKQnq Y5samuIpGdKUHv3bMQPt hTPwwNIqLi9mhFEqMV6k RULhbu3izQoiXSHpmGLb IHBhcmFmZmluLWVtYmVk WJVhHFXam7T3DEC9e1dp LfGeqdKEV8osGH61MIYc y42kZSB0a2M2PVqtMUVf DJ3dUOJylZwrXKYkKaFc OEPxVFB1CTI6cP1mHQvm mUtfQJVup4HzZ6hqnEYl MBD5UWFdQMCsDR25SxCx hKSuISUvSZa3PWhxZVZz sLSyngWtQTPixmR8r2Gi YXWuBNDdu32dRQ6gx44p UUhzO12eh1TtWbWax2Ub n0NrM2ogaBYglDlhtsZh sGMcPZ7qFDLyndQrqY0m eAZjo1AyrVscFOIcE42q TjvyMTElpP7vqIVdqfJp t6ZvppVuQLANVodjfYZe B6VuX3CaEBStICDhxsO4 bJHkuoOrMuZpBR3eZQLB ULqeDQV0RWfraR8uPGBv zUtgWAc6gYHewFGmjJ54 HEXjauGgrOHcw6LdZ2Ve tZGpu8tur6xyGqWsBC9m ijJrr5KwXAQ0WZqmsD6f RO0sKSXnuHNnyjYdurDg qWo6CNp9kNJlt7S5zSSp VXWnQTLjSUIpt3VrDTse hgUqaoG7pNGlwDDos9Ey JPIrKNBxfH21gN2rCC0g iQJaAZ9npZCmm9OhM2p2 e0PtJMZayBFaj2EceO4s uamfx5YeKB57FTjjdAIl m5o1dUyqJSm9dYNwSEPf fNQ5nACmvA76TPhlcnFd VqNcJL4kBSTaTTOtSEMp pnMjz6b0NAX5uG2gkuJu ZWxscywgbXVsdGlwbGll ZCBieSAxMDAuIFRoZSBt UNxohNJtMMMrc7IxDHef CAJhDblyLGUdAMPhX3PM NOJyXH0xfPZyCVfiJXGo clxwYXJkXHBhcn0= Diagnosis (test code = v2mmnJOdIOOhpPEmFPGw 34) InlyxnYrUQBixKRlA0Xh xbvmZVnhWL6lLO8ysTqk nWZmaDGdVJElCbWru5td v862hQSaj6rbJIBKlwvg rXe6bYylX76kd0K0Qgjd V4jlZAFoCPsoZEScURzw fHVqJWv7MFYmqZIencHm BmYzMQLeqVBqvTU4FUGz IE5eqoioKHbiILquCMLx pxS5FDNdkKJmZ6QaBSXc BD6minodMEE0HLhcNOTg SFG7EnXoBFTcd0Cmvjl8 MjBccGFyZFxwbGFpblxm czIwXGNmMSBPdXRzaWRl BLbqCfdTXkO9JoVoEBew G4KzRHOqFbrSF9tYASZv SSGSPuiyL80woLTqjAWk TG7kMMAuYoY2DjBoRvPz PpqrRZJpS8QjJWJiszkn fXkmGSqhjM60YuKvYiMq b0AgJOF8fdfdOREgu3Pu nPspbYMzLHlmLcP2GIzp nJ38MrErrAsuGfK3HBGL WGWKL0uMDJYRM0KOLfDS NXDLWP2UNUMfWNQROALV HOSYZw9gBMbPIBPpNBFa W03epWGfqBhhJUTkgIJc XGxpMFxmaTBcbGluMCBN RFcvRkxaIFxwYXJ9 Comment (test code = k3pknMJjWHRjlRPaHXQn 9835) FoqjmpAlBBDllMOdS9Lq dzlpWJvhKZ1wHA4hbIrg xVJaiXCtYJDkSnYec7hc q776iPCpz8vyPKFQvblt qIv5pWypU72lu1M4Ltmy L47uyZDvHTH5MBJcZDAm oAPuCHBiNDP1NTHwnXBk L9hbYTOcXP9efzvxWBdk GLwuFWWknST7GSTkrJEj Q1ToELNcVNklHADmuru9 YsHkFu1qtFAfcKvtDJrz YXJkXHBsYWluXGZzMjAg Q7AkbPd3oGGyKOwcrTTb d6rsw4LgI2xhlDicOWif s7DknS2sSBDanmMkrl5q ZCBieSByZWZlcnJpbmcg uE0sxXu9oOUer27ox6cq lkJ1yIL8OAPVBaXlsSlz bGlnaHRzIHRoZSBlcGl0 aGVsaWFsIGNlbGxzLCBh bmQgcDYzIGFuZCBwNDAg mPmjtVebV7b4hjB0bYIl bXlvZXBpdGhlbGlhbCBj HRyjcz2mSOEpOQZxs8Lv xW3jo9h0SFXqGCUhqF45 xy7orTPat0L3bEPfuVVs a9FeiJ0yfTy6TVVpSxB8 rCjhPKXbZOIccLQwO3I4 aD1eLlDbjZPxoR== Biomarker Block(s) (test u0icgALkRKPthVSnMRPf code = 9841) EmlyidMbNWEhnXMyM0Jy yslnHRuhFT1jNN7ueWup rDEwgSPzMDBjLuSzk2pm z944pYWek4fbLWGTvuhf lGq6yHsfL86ho7B5Xmfc Q6ufXKFkRDgsCHEqYEnn wFPaLHw8OJIeeQPcwuCj McIdHSAlrFHoqJI2SPHh WT4qahnkNGzkLGqgIARb xkY7SLIscDNlZ8KaKAOw OA4iymidGGD4GLcmTPPa HIS0CcFqGZMdm7Kdqgv3 MjBccGFyZFxwbGFpblxm yzLgQOI1zG5jWPFwh2Uw OiAgXGNmMSAyMjpJUzE4 NzBccGFyfQ== Disclaimer (test code = o0wczMKqJHUkyYOaGxEc 9844) HBQjGSTmr7sfWKGqwFHh ZzEwMzNcZnRuYmpcdWMx WAOdNdHev8mox889pXEj z7qeVPKxCsD6hWAoDQWz zUVwZ984RXZvJLxjy7sr j6NvWXJsrHUmp1P3JVFR kgwsgQh8jPqjH47ui7Y7 TxlzT3rxUTEvQQQjQ9Rv WE6yMASqQpy0XDT4WBD0 XAArFDAqY0TfXO8aQFLt oICvFXf5u8kbdSngLKZx LSR6x4udMIhevnHiVY0v ri8zmBz7s1yoosRhQAFx GPJwqVSJIFNpF1DdvEpl Ge7gbOk8rUnyYngdCTY8 Dsl9PG2kjr00mtj1nMlh DENqpbwxBrQ3ZJioHZCv vzfcXYm1NRkiKJTntNA7 ONHnmPUqH4UtJTPeYP9h tob9HYJ7UTycQUQqAbC5 NDBcaGVhZGVyeTcyMFxm r662BRI3PeSqOJ8xC1Sf h2A0eM4ppUIpQLSupLCv WgVtYGVlar3ikGUoJPhl n2WaZVP6prJ0aKPrbJBc FLNvWK04Nizqx2GvTedi GGX6MVRrceJlc2Gwz9yo WrHyaaFuL5uuD7KyGXMw AKZcVVGkEkQtsaDsu3Fk f8YwoQUtuPy7t8peYUAw QMUpfXufr4mtSWJ5JIJp T1I4aTEsg8jqTQjgDKMl lNQ6zgY6HPAxjCRtN7Sq dL0fBDVsQU5zjhg3p4ku TEO7MIupEGRgPcK3dkY7 NDBcaGVhZGVyeTcyMFxm n732DGK2KhQjORXde3Ks X8LdqQszJ92hwAzrX45r HPGfwOyjyM3clWfvjN9m ZjBcZnMyNFxxbFxwbGFp cracUOtomrM5TClonxcx QQXjZVeaU1upHpDiIPPw sMdaLUqlp9VhYHZoWWDp SccnncR1XYNIt25mNSQi k4NaLABwdJ9xiHQmZTja pdGbkCB0HXoeggJsOvEl lqXdVFCrwL3lGQPrPN9k TCDpdvQddw6qqbGmFVSc WJPoW6ZsrfdsoNsccmSx WHNknl5uuqOtPLX5IRFR WL2ZZWYnASMem11aPHFp xOkbfH6blTVvpjMyCPSd y4DcuT7spMYEJGKkB0av NC5mMXugi9ZetFKnqFAj dNS6FIXgw7HfHpWykkLk iTQrlPKwR8MzvElzK7cf VYQnTZFmrrHwuFSzk2Vj FZDyzZY8jSPsIY3EWcBF b67dTJDgGYNLouHoBFGj yVxcmDQ3liL4sP5yCfOY ZiBhcHBsaWNhYmxlLCBj k413iy1fmjJ1QNYbCDHc ovozz9HuCUGsNVBzyI58 OIXcUDHbss1zdlcojXEt xxWbF0Lmatc1lL3oQLYt YWluXGYxXGZzMjJcbGFu ZzEwMzNcaGljaFxmMVxk EmAqQMMpWAztP5hvLoUf ZnMyMlxwYXJ9 [facility] [place] [facility] [place] Interpretation 2022-11-27 23:08:26 Test Item Value Reference Range Interpretation Comments Materials Received (test d6ameEToBKEmrOTyEfUb code = 9973) WGPhSYXqx5evIVZeeVMz ZzEwMzNcZnRuYmpcdWMx PXGcDjUuv8kqp015nOQm m2koCWNwQmG3sFTgSBUh rTJbX254IQHsCVqxx2xu b4TfEWXnaWRln0Y2EMDE egusnZr8eAwwG39lg7L7 FeqbT7hbIIQuHJRbV3La SN0sDIOzAex7QAI3OOG7 TLXhLWHiM7QjER6sBTAm cGTuKQp9j8dexBedLGEv FFE7n0whRVvglcXbJA9e cn7tbCz6i0ymelVjBPFr DEGsqURPWJQdJ4JdbEvg Kj3rlYi2uOekXpgtYBO6 Xpv0VQ4yvr14pny5bNoo TVRsblgpOdE9AGnlJSQb atqeAPr7XFrrORHcdUss MFxtYXJncjcyMFxtYXJn rTH5PSFqmCKgE0TgRYSg ERncXYUuleq8WgPbNf6q uFJjbLrrFOyib2oky6ph xCAkHfg1HXFaDtWrTznz CSyjf5Lmf3pnUOHdwq2c DNA3uMKgkJmpa6G0hKGx DQFwvCZpnoDzXQWxij99 lPOfuJPvfMTnqb8grdWe mIShnBKyPWU2pMQippZt WHAekYEtQDVpIR0fcPFa NRTqjH2xqginTSQiTvUy uhupDWZxnPnjtwNiXn8x lChzXVN5MTwaR7fapV9y QiQ5WSmtB3wvcX8rNNg7 YGwgoSW7SEKwbX9vBS3k wmiuj4lsFwIqYJ3qulig f7shEoEdYD3lwfj1l5xz FTK7IRwhKGFjWdH9hdA8 NDBcaGVhZGVyeTcyMFxm v534VJJ5WxEqBDPhh9Ax O6BxzDaiU38guPuuZ74o STOadApiwS6btGxpfF9r BhTkHeBkJLy6is81LYv0 cflzcMqxNPe8qwOiHIIy XFT2FMVfnZMbCHYoG5p4 osZxOIVjQKJ3IOXydGZc NRUyZ0g4rsRcZSX4DTt8 cnBhZGRmdDNcdHJwYWRk YjBcdHJwYWRkZmIzXHRy gMZeyPCknUSfqL3mbHml EMKebOOthL4hAOW6ESHq cmgzMjBcdHJoZHJcbHRy ov45MNRgrbTmcSNweDaw xVXqFEU8FADlEYCgFXIp GZW6QRWcZaPqrbGvVWkj bGJyZHJiXGJyZHJzXGJy CIV6GTWpKsFplrGwZVui bGJyZHJsXGJyZHJzXGJy XSO1CYNqHpXjrpBnMOry bGJyZHJyXGJyZHJzXGJy OTW7SJEqAcBugrZqUWvh bHBhZHQxMFxjbHBhZGZ0 Z0vgiLQiBAGfPJmayIJq HLSsU9cfvONvEXheRYYa cGFkZmwzXGNscGFkYjBc C5buEPHnSxBfR5RpmVi8 MDAwXGNsdmVydGFsdFxj dZQuIPK3YUKdKAZcYYUn EID0AOQeKlBalvDbQGgk bGJyZHJiXGJyZHJzXGJy KSQ1MPXsFjLdxkIpPTfk bGJyZHJsXGJyZHJzXGJy XOK8DSUsHxVttbJoCCsb bGJyZHJyXGJyZHJzXGJy ELJ7QSYyFrBzadGySAvd bHBhZHQxMFxjbHBhZGZ0 C5jeiWKeFAPuOAvsuHEh VCHeH4qfmNGcPZkgTBFl cGFkZmwzXGNscGFkYjBc V5fkOZGaRlMjO4WrmJl4 NjAwXGNsdmVydGFsdFxj aPNwOME2NZGbUQRfFPDf DMQ6QDGlLtYufjYvQXug bGJyZHJiXGJyZHJzXGJy CLF9YMXrBgOcbrQiYHms bGJyZHJsXGJyZHJzXGJy WTJ3CYKlMgQnpnWaMZit bGJyZHJyXGJyZHJzXGJy JCK6NVLiNoAwugLwCGyq bHBhZHQxMFxjbHBhZGZ0 Z0rypWLlNXDrATigoCFw XNGpZ9ekyDFlYYcwHSDy cGFkZmwzXGNscGFkYjBc P3emZIEoUhVsB5BebNa4 XxVkQSUhblEbkX94Lavu d1DkUAIoWFN9ESglHUzs bFxwbGFpblxmMVxmczIw VYynrwbcTCQlWOrpN5nu DoIiRHXteWcbHIfsq9Sk XGYxXGNmMlxmczIwXGIg OZXsTOUlsC9fTossV6Ls qZ7eHMvhKopeP1thLSKi f2NodC1zVNyurNCakesw MVxmczIwXGxhbmcxMDMz UZkuR1fiMzZrWAWmrBrr KYgnw8CgJDPyWIMlXbkc evRaMRt7mhGbNJAveZvg dHGeKVcrgaTlgEpiq5Fu pfFqfLsySDEbTWh3kgYc osldtFq0qECraDljXIZu mPxpcX9rTdTzCvMwESyq bGFpblxmMVxmczIwXGxh ymfcYPJbWNjoJ0kmCmKd IEQhpGobIRvzo6XbOMGp ILXnPbhklzObEPBfP33m bGVjdGVkXHBsYWluXGYx XGZzMjBcbGFuZzEwMzNc aGljaFxmMVxkYmNoXGYx LGxeH6gaAlOpI9HnVEIr AhGrqHCxV2oeG1MccBzu YXJkXGludGJsXHNzcGFy FSX5kBBynjLzySFzxWCs SCLvDJezMUC8tFGdfftb hZYwvzugYJrxrmR2KCFh YWluXGYxXGZzMjBcbGFu ZzEwMzNcaGljaFxmMVxk VgCmWNWoWNtcD1qxKiSq T8ZuUMByZaDwReJDBBAk aXZlZFxwbGFpblxmMVxm czIwXGxhbmcxMDMzXGhp K9oaIsBxZXTgjAkaEUss j4KjVMHmHKZmErjcqgYp AXo3etDiJYQebVurxI51 Ufltfm52JLKbe5rdUDIk P0KwpLQdSPFzdWIkYAbb MDhcdHJwYWRkZmwzXHRy cGFkZHIxMDhcdHJwYWRk ZnIzXHRycGFkZHQwXHRy rOUiUKF6G3u6foFgHGYo DOd0usXmZUBuOkLzhQUi LOZ3YEp4DtgkzxR1kZWe T1l2AsngtxUjCLxdxYGk mf34SAMoevSlwEUjlUjy mKDlLXP5FDSdKOCfZEKj SGW3QHHqWwNrtrLuTNrz bGJyZHJiXGJyZHJzXGJy XNO9QQQrGwNgphQvHTfy bGJyZHJsXGJyZHJzXGJy COO6TGWxZtVghlVgMEjr bGJyZHJyXGJyZHJzXGJy IMW8KDYsGrRnrkFwBNma bHBhZHQxMFxjbHBhZGZ0 H4omlWLmUVTzOAwwnSXz ALKuJ2pllIFbPOwnPWZp cGFkZmwzXGNscGFkYjBc I4weBMBySlPxM6EitYu8 MDAwXGNsdmVydGFsdFxj rSPzZPV9SIViYOHyFHGg WIO9UWTsVqYaauKyJVos bGJyZHJiXGJyZHJzXGJy UZW9OSOtOdPisdFpGGvi bGJyZHJsXGJyZHJzXGJy JQE6VVYyOsRhzcNqTFgu bGJyZHJyXGJyZHJzXGJy QXO9NBLaFdLwnxSaKThb bHBhZHQxMFxjbHBhZGZ0 J6ajiNWcBQLtGMehsHXg GJQwZ1aobGNtPTtfGCJh cGFkZmwzXGNscGFkYjBc D7mgGAJpKmRoV0EuvCi0 NjAwXGNsdmVydGFsdFxj kRTtDUR1TQAnHJLqTHGf XQR3XVCpAeVbfjOlZDmt bGJyZHJiXGJyZHJzXGJy DIQ3TJKoKzMfnuFgMMqd bGJyZHJsXGJyZHJzXGJy ZYW7WQDuUuEzhiYoGXax bGJyZHJyXGJyZHJzXGJy ZAJ7ATHiNnMhxwRvDTro bHBhZHQxMFxjbHBhZGZ0 C6oxuIGfJRBxQPvvtZGi DYAnA7zzqHThCMdcAOJg cGFkZmwzXGNscGFkYjBc T5hjFGJhVmWqI3HcnOx6 LtZuFLTqwvJjkG24Dkik x5CwLGPxFAL6JLknDUub bFxwbGFpblxmMFxmczI0 XHBsYWluXGYxXGZzMjBc bGFuZzEwMzNcaGljaFxm FTqjSgMwVEVfTIeaC2qd HmCnN1YvDZEmOeArRQ2d CkC5HECtAYtjFRH9NCOR JNVdUDOIX7HEQablYJDN M8QvoTbwwO5fFjBkPdWg QTyaJR1fNIJyU6sxpMZh IPUhHUYoD3ivVhOujT0v aFxmMVxjZjJcZnMyMFxs dHJjaFxjZWxsXHBhcmRc pI23Xmpyj3AaUXBcVQI5 MFxzMFxxbFxwbGFpblxm CSisnaC7FBXhYSlkZFSb XGZzMjBcbGFuZzEwMzNc aGljaFxmMVxkYmNoXGYx YCexW6cjYvJsS1HxPFUq MjAgMTIvMTYvMjAyMlxw bGFpblxmMVxmczIwXGxh ctvqDOOgNDerL0noLhVf QIVuhWcuZBqcb9UfPQEb NWRcDatrqfMsYPb9goGm XGNlbGxccGFyZFxpbnRi nJthx4UiykQbxNgnTMXj XHFsXHBsYWluXGYwXGZz ZjJdwIsuzN8vFcUqIzZh EEhaNH0vOKQyU5zyjQGl GLLiTBZbT0djCjHwtM6t aFxmMVxjZjJcZnMyMCAx IyF4GiUfYhAezHwqoK7d JzBwKsJdFIcdNV4mDOUd F0fhxPYfJQBgFZXwH0ve SqZshY5lrGibOBncIrHm ZnMyMFxsdHJjaFxjZWxs IYikrVKvSIPfg0knBKEi KAPbvKZiLOH4bWMtycBh cMkacHzguM4uAsCvRdRi NFxwbGFpblxmMVxmczIw JEpwmgcgBZRdFLteB5qu GhWzKQUcaZluMVdyh0Nc XGYxXGZzMjBccGFyfQ== Addendum 1 (test code = z5nsmQGbLRLppUBfXKHj 37) JnwhbkGxMMEjiLYyL5Nn clpySRftSX0kYK3giFan lDKtiESeQSBzJzYlf4sk v962wACjr1bsSXUHLRpl QMQQRIc2w2cdZBZGbzxi fRo8pRohF74pq7B4Bizb A67aePGnVIP5TKNeWUOz xXShWGDiVMY5ZBZpePBr M9drXZVmJT6syrqeMKht XUjlCGSfuHS0FLVmrABr T2InYUCaRVfwKEBdajd8 GhAwUb8wmSSdzSlaNYig YXJkXHBsYWluXGYxXGZz MjAgQXQgdGhlIHJlcXVl w0Qcj5HkzYcrMBJkWAA9 gY2eTLZtzTWaN7yanlN9 eDJwPa8cbO76mA0iKQU5 tYItWIIpn1YyOZLgDAEi d9HbUGNpEL6zCMtlaEXl qPJywGWbJTQ4VK2GOUWd MZMmf88hUwLygEAwRKHo ixNabIPlLNIfVXY0xS9t ciBjZWxscyBhcmUgbmVn IGDvouAdOo7aGSntjxUn ULXcBGLewKAkzP04zf4j nVY3i3WmED3oN6YkTWSn RXc4f5bvRwLdfVVkEUZd hfDtoQUpSIUzWAX7fN6b ddSoGOwireLszaPuhG7r aXRpdmUgIGZvciBjbGVh mdMdKL0MBIEDRQXmQSO6 YGNyQYIovEPuqG26jk7z iHI6r9QcMS8qP3NlGENe LTm3s7yiJaCgtYQjVIAl nvDECY9WGYAuM9byhiKz MjJDMywgRGFrbyBQaGFy bCI2YMJBd75mgJ5xFWNV e7XyyDe1ZFSXH42oZDQd V3ELGYwklHRchOZyerC2 aGFuIDFccGFyXHBhclxp XLWjIOLaj4H6XKqqGl9r bCM5hC1sTNMaNCO7OPXd aXMgYXNzYXkgaXMgbWFu uCEhF6P4dqYnFBM9IDQn aWxlbnQgRGFrbyBhbmQg vBPfboScEX6pne0uhE0q JFhvJS22yU4FIO0SYTyy C4uwnwPiQjEMGb0aKQHp cNDpfHZlXd8jkYFkIM8x IBHfiu7gvFdzKGIrlZVr IHBhcmFmZmluLWVtYmVk FGVkMGRuh8J4FVL2f7aq NrKidlOZV8igNJ23QCLh l28aKQV2r6R0XDqlZXFg OT7hKAXyaXvqNVTxKuVb JCFaWRV4LDG0sC1wTMss eBlrJIIql5MaH0czpOWx ZRE0MRYkMXLbDF05FsNn nDMhPWVsTAe2YRwdUKXr oTDcboKsZAQilsQ3w4Pl ERCfXYVwd13dPX1sh36g RQzxG98eq9UkHaLta3Ox i7RqN0skiRZdnGtkpeJc qTBuQE9yTLObloZdrW8a iNArz6EpxYnpTGDyX55c LmvaXWPeuX0dxPZqdePt m3FgtiPdJVQIIoakfNIr N8VbZ1IsIUJdZNWbvkI1 cUBefkBjNoQtCK2sQIOZ UGbaHRL9QEewbP5kWSLg xQvqAJz5uUUsuEBaeD36 KUXybrAkfYNfp3IvZ1Jb kMCus8sbc2boGtLuTH0c heXhu6HrIYE9MQnrqD3c QN3lTCAizJMahqMwqfRf fRo1QMv3lINlm3U8gXMk XBVgBJXeHXWgs2NfPDbh tcEwvuL5ySXfvRKwc1Qu FDYhPQQtsQ30kH5iPB0u dOAdME3xfDQsj6SaZ1s6 b6EfZCYjjGYja3PmeE0s fzseu3SoXQ46ZXmshPKj k7n1yPkgUNr0kNFnUQVp dYI4oAMypR86ZJtnssPe OjAaBI2xHBUkHUFcSDWw rtKqp7e2ETX4oG1yrrNh ZWxscywgbXVsdGlwbGll ZCBieSAxMDAuIFRoZSBt JOhstDOpQGGcb0RgFXix AWQqOujkYQNnNBIqA6AI XRXrYM7qdSCfADgfBJSw clxwYXJkXHBhcn0= Diagnosis (test code = y1ixuQXhPKVxnOOeVWVt 34) RsoxpgKjMUUxpETmI0Hr lvanWXuwDF8yWO2zzEfq zGCzySBlNGJiFaRoq5wb d184vBTva9krYZZVxuwx uDb5gLlxU38di8V2Oodj K5djEKSdILddJDUySOto iSYlTIq0MPZkdFCczqSh QaTdEVBfmYBrdXG5QIQn HR2opkagFAwhAAdnDKCi rwV9HLPvzYJiQ0ZtPZGy QI7nbfjnEQF7TFqlZYEu IAE1NbKqIOGup3Dtrzq7 MjBccGFyZFxwbGFpblxm czIwXGNmMSBPdXRzaWRl CVgcEiaWOrW9InVnCSdm T2NuOVVwYraPD0gQKWCm OOAXPbnqD90kjUKukYNl HZ0iSCNpFaF9GhRzSnUv VrsqKRNmJ7QiJTTviqge aHuuCBqipI78ZfWkChTb r6PdSXO6lqzmVETxb7Bs jGrohZVaKNwkEuA5ARee vY63HgAgrXiqBrN0XCDD CWSLE8wUFPHJO2PEGzIJ MNAOCO4UYXBbVJDCHTBI QZJYTv9sPCsGPRVqJBPg P60buUSxtJdwBVWbvDYe XGxpMFxmaTBcbGluMCBN RFcvRkxaIFxwYXJ9 Comment (test code = l0eqxVIjNADxpUYzVQWx 9835) GseeycPaZEGqpAEiC2Ky voffKBdlPX2oQP2tsVlv cXWqhCWeYMXtPsQso1ia e146bQOap7icRRKAeznw qXb2zWguE79sm9Y1Uytw W01lbOKgIRG7SFSySSSl lIYgXXNfBGP4LPKirFGb L8uxTOWuYE0afmvyLKkb ZHbaICWicGX8OZZfcETm S0DcVHLsWTzvONNclji4 FzIjPd3ldZExeGckUKed YXJkXHBsYWluXGZzMjAg M3TzkBc0jFPgPAfbeSDv j1wwq8BlA7ydbCqwLSok m6FbpD9sIDTohdAcmd9x ZCBieSByZWZlcnJpbmcg xF1bnPg5sKUeb76kw4gl seR0cSF6SRBPWvObhHro bGlnaHRzIHRoZSBlcGl0 aGVsaWFsIGNlbGxzLCBh bmQgcDYzIGFuZCBwNDAg vEhtdFrwX1s4dpC1iBJq bXlvZXBpdGhlbGlhbCBj FRozql6iLWXtDPMcf3Ru cE4wk3s3UZBiWQYxrF53 lw4epDEyk2W5kZDtsQCd z1GkaN3qsYe8UAHwPaP1 eExbESPsDXQslJVlW0Y9 iL1dLhVudZHwbJ== Biomarker Block(s) (test p2jdxSCpYBMkpFJeWXTx code = 9841) YaepckGsREYmrFOsJ3Bk vfgtDUvoIG6qPA6yoIdj zBVbtQTiZIUmBxGon1on h078aXQsu5ifCXCTyicq dXg3iSqxJ16yp4I4Ayyt J8boRIPiVQeqIRDiBAre kZKlREr5KEMgpZFupxYk MiTeWYUtnNTcuZH1UOEq DQ2gwwhaETumYZrjZPXu zpH9XHFaeQVtH6LzWFRl BE9washdZFS0VSytGEGc UOV2CrQxYBIrc8Rwqto1 MjBccGFyZFxwbGFpblxm vzHjTXY2uM4pWRKey0Ta OiAgXGNmMSAyMjpJUzE4 NzBccGFyfQ== Disclaimer (test code = l2airRQjXJZqdFNkMmNz 9844) RAYxTIFlf0dyAGTlmUMd ZzEwMzNcZnRuYmpcdWMx CMUwQlIcu8dls123jOGb j3xdHNBtUmE9iCZnVLRq vWDdQ484CBXbQCxgf5bz d8YqNOLwgWMqr0P3GUPT gezhnMm0nMmgG96sw8K1 GopkF5lgLGZaIRJlZ1Re FM7bLTOsDkr8ZGB1AVT8 TOYdYBSlN1HlCP5rSAIe rZMiQLa4w3opgGjwTCEs RRF5n6lgEDqsodFaQD5f og2cdYo8y1fvvoRrQVGc ROWjrYVHRVUcL0ZdgWgs Jr7jkPw2jHzvSxnaDQP9 Lkz4AS0fcm48ftp6yQco BYKvzeleTaF1MBkhUKYr uoknGNn1RJcaMISvmUD4 ASRkkKDzZ5UmQCFbPK4k abm3LDE8XKesKQNoZlQ2 NDBcaGVhZGVyeTcyMFxm i265GPZ9QfUhFK9wG3Pq q3K1dE8yaKXyMIEwiTMx KhZxJMYjqi2tsGTuBDpf t2FjTKN6tuF7yMZwgAXd QUPeYF74Lxsjs7GbTdyj TZR7DNUgrlFse9Xwb4vi LqMornPbS8ogD1WiUEEo QVYzZCZsWjFsqvGqb4Ya r8MouOAkbDo3o9ldJHMv PDMpfUopq7iwPUE5ASFr S6I1iQTqv3zdGFklZVVh wDT4kjL5VQEjtQLaC7Od uG8cPNXwRK3ohry9m9tf WHN0BHynTHUkVqR9eiR6 NDBcaGVhZGVyeTcyMFxm c103DMI5PtHbTQZaq3Ta E4FheKluT83isYuhV85p VFKxbAgqmA0czBghrA3h ZjBcZnMyNFxxbFxwbGFp lvjqCStcxgF8BJygaitu ZWPtQDfkW1coXaNnCZLr bRplADcey9HdJGNpESIp IellqjC0EZWWw25vSZUw y2RvTFYtgE6sbRAkCSpo hdQsoWP2JLvkblVcImPj ezVuXDQcnC8fJMIpIL3u NCZxdiMhnu5tbeOxKBIw BEOzY0OhqqvdpVifgkRq FARgax5juuRlLIM3AIZI ES1VHBFqMYEng65aEYJi zBpqsN2vuWPeagMkDKYz i7LxdN0qeZHXNXMqZ9jo DA1mRNajg2XhlMDskTNz oUI5JAXze1QnVmGtnoAo lQMrbUPfU1QboFkxM8yc ITRgQCNqveLcqQJwz9Pn EBJtmTM7yXBmFH4PCcEU a56iGFHxBNFNjcXgOETg rUkffSB4pqS9hE6gPwSM ZiBhcHBsaWNhYmxlLCBj p329qk0qovZ8MFPmJPLq sbsym1VcJEHqWMQcnG60 CFTbDHOzig4vzjuwiVLq rtBoV1Grxoe2dS0mCXVb YWluXGYxXGZzMjJcbGFu ZzEwMzNcaGljaFxmMVxk LmWfVJMjSVyiI3diKeAn ZnMyMlxwYXJ9 [facility] [place] [facility] [place] Interpretation 2022-11-27 23:08:26 Test Item Value Reference Range Interpretation Comments Materials Received (test y9kwsFPcHUTqsBQiKqNw code = 9973) FCVeBBMxw2ogRYTclSWu ZzEwMzNcZnRuYmpcdWMx TLTxQvRvm0qat716vOUn i3mlXQCxBlZ3hAExRSBb uHUsR498VXCcAKftf2kp w0PsQXUzoHHbz5P1JTYN cazcfVp5lQxaL52fp5R5 SyunR6hpWXRcTTYkQ5Ca GD9cSFZmCic0BEE6LQM6 TQPnCAQqW3MeMB4sSXOv bGQkHXy5w1rewMkuHINo DDW1a3afOOmxnjEuIL9j wu0ljTm0k2zbvnDhMNIf MFQgcUJOCPFkD1PgfIuz Bd2ckUk9rOcgLwmuWQT8 Gix8EG9ase49icq0fGra RGNopbaxJzL6GOjdQKKl xqhwKJe4EKgcMGYwwZyy MFxtYXJncjcyMFxtYXJn sTQ3TYXgtXOuL7TmZNKc EKsfWRNvieq4MiUwTw4g cYSuhLnnNReal8gvh7tb qGDfLke8KTFuDuOnSbsz MHtek8Mco6zgJVFopy1k UUX6mEZuwEulq7M3kDRu KRJlzWDuovXjDGHmko02 cKTflIKepBWary3xeuCx uVPuvDPfKLO1iBPgmcWe FBVoeOTyUFUcLY9fpZIi VGUklO4qjmqsYEPcSmMm limgSCChtTbgwlVbDo0u yRfhQWZ3ARccE5mxrT3e HaW2JQxgT2ytnK9aKEr0 YSzzsED3RXMbuZ9tWM2a dvlqb2prWjFhFL2shihz y8fwBtUnNS5ptuk4t7op HOV7LXqnPWXnDpS0mxE4 NDBcaGVhZGVyeTcyMFxm g735CFJ2IiLmHEYgt9Uo K3BqxPeeS96feZirC79e LMFwsIjadR4ljMddqG2p HiPbIxRuTSy6cz17HIo5 sqrrrDykPCg9ypAaMDEo CYO0VUGspGLqWWWdF0w1 qhYgEZFnHAY3KLEvoNBu XTYhW0x0njYcOIT2HQv2 cnBhZGRmdDNcdHJwYWRk YjBcdHJwYWRkZmIzXHRy kGByvBFuiKCkkM9uaApr GLYpdONgwI0gFSD3JEKt cmgzMjBcdHJoZHJcbHRy na48EAVyufZpgTTejVdi vCNnSVG9FZMuWXQuEKRp RGU1KXZwPeMohyJeHSik bGJyZHJiXGJyZHJzXGJy WNP5VCJeTyOktmRmUWal bGJyZHJsXGJyZHJzXGJy WZK3TKIyVjEopeQbPOps bGJyZHJyXGJyZHJzXGJy NNW2WOXtFwBmrlRaUZsj bHBhZHQxMFxjbHBhZGZ0 L3afbKQdKOEjNRwsxRCi VFGhW2vlzWIgUKirYWOx cGFkZmwzXGNscGFkYjBc H3cmDLOfCmRqD6JefPn6 MDAwXGNsdmVydGFsdFxj fDKeKTW8VADzEKViXWRq AAZ1MJXjKpFfucYyRKam bGJyZHJiXGJyZHJzXGJy ALF7SEYiRrArxxTxGOub bGJyZHJsXGJyZHJzXGJy ALX7QZRlAaExvlWsZKqt bGJyZHJyXGJyZHJzXGJy TCO2EVYkDgNvxtYyHNvu bHBhZHQxMFxjbHBhZGZ0 U9utdCXuQMUrUHxsvLLg HUPnP5pfsTLeHSatGHUc cGFkZmwzXGNscGFkYjBc L0ezYRTcMlOcS5TndQr2 NjAwXGNsdmVydGFsdFxj xLEaHYQ4TREtIATzRZRa INR7PRQaAjXbheVyVFgo bGJyZHJiXGJyZHJzXGJy YRM7BVPuKvUpolQzROtu bGJyZHJsXGJyZHJzXGJy JJJ5LZGsNnDkrsObEIjz bGJyZHJyXGJyZHJzXGJy IZM9XJWdMeNwpiHhPDtb bHBhZHQxMFxjbHBhZGZ0 B7srmEOxTOMyPGknpGOf CMGfT8tswPMqZVdhNQJc cGFkZmwzXGNscGFkYjBc X8dlQWZeLmHxH6EopDd8 IuUeCLNdgxCfsP71Pmwi a3AaTBWgHUK8WQntKNmy bFxwbGFpblxmMVxmczIw CIaehkdcNTWfCNbmI8ds MyGtEHAqdYivXIido0Hr XGYxXGNmMlxmczIwXGIg UIBfUCVyfP9pYliiA8Zb gR1tGFpeCbevW1ptTJVx z2XilJ7uGPvbnAWpaprb MVxmczIwXGxhbmcxMDMz FZyeV4gvWvTyJPGmaAjr TMbzo5UuRBKeAOYyUxuz rjXtITs1jeGxKFGxmEii mWMaLPbkmkQadObvk4Er vrOutUhuLDNuLZt7seUo twlrvVl7jPWjtOdqGQBw kFbzuW0kMtKzXtNmDRos bGFpblxmMVxmczIwXGxh xndkGHMqHAwrR7imXmNk EQJppLehDOarr2MsKIHd WONhMdxbvrKmHQFwX27z bGVjdGVkXHBsYWluXGYx XGZzMjBcbGFuZzEwMzNc aGljaFxmMVxkYmNoXGYx ZVnrB7jsIjMhG8TyMGQf JnZwaTAyB9ieU0ApkRsa YXJkXGludGJsXHNzcGFy EXP5iHGirqGqlVVfoBLp CDMuBKgcAEU3xYCvtmcy oOUphgajAYjgvnH1CVJr YWluXGYxXGZzMjBcbGFu ZzEwMzNcaGljaFxmMVxk PnShXGRqMLknJ8wtDbWp G6CeSPInVgIbNsQPGMUd aXZlZFxwbGFpblxmMVxm czIwXGxhbmcxMDMzXGhp X4uyIzHbGRGqxGiwQTur i3SaNASlRCOsVklspqPz NJg0bcPtKDMklXlccQ25 Qtgqmm55MYPba1utAPRm L4UdfCRbVSYkmNJiDMho MDhcdHJwYWRkZmwzXHRy cGFkZHIxMDhcdHJwYWRk ZnIzXHRycGFkZHQwXHRy bTUpIHR3H8t4ofReMRNm YMo2hyMrNECkEfMnvTVb GEK6XCg8KekiqkU7uRQe H8o5VttqnvLqYRnwdLYc uy24XDMrdiLxiIOoxRrr qKBcYDR3LQWtITSrPYRr QEM8YVZuDeJchmZkVVpr bGJyZHJiXGJyZHJzXGJy MCY8UWCmZdCitgArHDxt bGJyZHJsXGJyZHJzXGJy EIK3CLOzNhBylxOrLHtb bGJyZHJyXGJyZHJzXGJy OZC9XJZxUiJkkhZeTVvg bHBhZHQxMFxjbHBhZGZ0 U0onuNUcLTHdYHemeGGc ONPhK0nkvZUmBTgrOOBl cGFkZmwzXGNscGFkYjBc K4tnLOMuBaHmO0VncUw5 MDAwXGNsdmVydGFsdFxj aKNmGBT8RBIkJEVcIEFx CKQ8RXXcDzMnvmStDXxt bGJyZHJiXGJyZHJzXGJy QIN7XKXkFhFrwfLqOLck bGJyZHJsXGJyZHJzXGJy LRP7FPMeGgEznjPyVZzn bGJyZHJyXGJyZHJzXGJy UND5QDGdIySugcTkYNls bHBhZHQxMFxjbHBhZGZ0 X5tfbPOqZOPyQHdilSYs VBPnU0nszEUmHAjiAJMa cGFkZmwzXGNscGFkYjBc J7nhREIsGfTrF0QxcKf1 NjAwXGNsdmVydGFsdFxj cYDySZD7JUOwEURaMMNs ERR6FXSjGsYzigLuANpp bGJyZHJiXGJyZHJzXGJy YZS7FZMoRwRicsYcLDtc bGJyZHJsXGJyZHJzXGJy QAD7AAQsBpGlqjJpWUam bGJyZHJyXGJyZHJzXGJy EYK5PSRnZfOjdiRrNTwe bHBhZHQxMFxjbHBhZGZ0 O5hpuQQaTSRpSBxxgBEc USLuM0sxpYWkUOvbEMNo cGFkZmwzXGNscGFkYjBc R0wmZHZyHrZhV3JaiPh8 QxGmBYUlhlLcwP60Sxfc j1UyBYBtXWW8YYkhAEve bFxwbGFpblxmMFxmczI0 XHBsYWluXGYxXGZzMjBc bGFuZzEwMzNcaGljaFxm SMxcBoOxNHDaNXdpZ8fh CgIbK1DoTLFlCiIbAX6r ZfI0JQUfRUhuMSY4CPJT SHCsFHCZE9YLJuunBPZK B0JtoOqdcS9dLqCuCjEa GNeiAM0sXSZsN6zocSUi WGHoSRDcB1cgBaBmeL3e aFxmMVxjZjJcZnMyMFxs dHJjaFxjZWxsXHBhcmRc zH60Pxhnp9CrPBIkKPG2 MFxzMFxxbFxwbGFpblxm FBzfwkX1IPAvJSibHTCx XGZzMjBcbGFuZzEwMzNc aGljaFxmMVxkYmNoXGYx TEqqD9naXpCaS7FeBERs MjAgMTIvMTYvMjAyMlxw bGFpblxmMVxmczIwXGxh cghhCTTaKBbdB1dfJoXy UPAlgDpzHPpfw6GiHBBv MFFxUfgfvuQmSWc9anVv XGNlbGxccGFyZFxpbnRi eOfyg2TdeiNimHtkEYNg XHFsXHBsYWluXGYwXGZz HlIieSjxaS7tKlGaXqWi WZoeHO6lYGBxH3tsrAUy RFUtEATvU4cvRsVbrA6x aFxmMVxjZjJcZnMyMCAx AcT0EkZjGpOztPsstU4q LmIwSdTnQEtzYY8wDWUt N6lbaLZbFXCaUFFiS8sx HzMjmA1soNhnPBzsZwGr ZnMyMFxsdHJjaFxjZWxs YHhwlPCgHGOcy7uoEWNa ZVVzdEKkDJC9qEJgegKu wJyiaQancC6dIeUvFzBk NFxwbGFpblxmMVxmczIw SHvtljpgJHRyJJxmY8ff ApBzENOpxIjrULxfr7Es XGYxXGZzMjBccGFyfQ== Addendum 1 (test code = m7lviATqWSJmvUTsEOSs 37) MeovnlKvLCOthGZbL4Il ugejYWmpGC0yYD2arZvj xSEmgDPjZGKcQvTrw2cw d675nZPuw5brDMICXHnw UZKAWFv2g7rsOCQWkcag xQi9vHrtT07jn7Z9Fqed D99afQXoKHD0NGSoYQQv wQStBQObTHW0XTGcxKNm M9ulTXRzPX8kjrgkKEwf OReeVESkyDM0EWVeeGTl G8NsTGFcIMwoABYzwrv0 YzClIk5sbLYaeWnsEMlr YXJkXHBsYWluXGYxXGZz MjAgQXQgdGhlIHJlcXVl r5Tkr0BmzQhjCQYeODX4 uO5fQHUudLDfJ8bvrcU1 mWLzMo5rdH04xK2hLPU7 iPHtXWBkh1CoWUErUMIw t6TnBTSkJM1gBRtwhHDi lDCsjRBuKBM9KM7AWDQe YEFdz35cNxZiiEXjZATc ulWpgWRfSEOlZDZ4qM3t ciBjZWxscyBhcmUgbmVn AGDeiwSdSz7tIFnintKx TQGwVUAnpRLelK76wy6t bAQ8a6RxBO7aO5NnUXJz XSl9z6ptJnLfiOFkVUFr fbLkhAApDIKtROJ9zR0o raVzEGvbwtUivpNjvA2c aXRpdmUgIGZvciBjbGVh zhVvDG8MRSXBBIIaLBY4 WSUeYDJmlLZksC63oi3x sMG8l7CvBI1dE9HjQDHo HWo3c0ksAzVrbYBhTNZo qbHKME9DUUUdT1eujgSc MjJDMywgRGFrbyBQaGFy aBO3XBWFv98tgP6pYGLE j5BhaQr8AUEJR81bNAIh A3XRNNfybFXjuQRvhkS8 aGFuIDFccGFyXHBhclxp LVOuOBOvi8K0CYdeHv3n sLL5dD9oLXXoRHO1UIUs aXMgYXNzYXkgaXMgbWFu qSZuJ1J6mjJbQRF5MXHn aWxlbnQgRGFrbyBhbmQg wZUwkuGhFM8ldb9nzQ7k RWqjQR53oX9IUA5KUAlc R8hwagKlLwOIEu7mAGQj gWVztWBiYv6xdKIgDU9i SVQwxe6bdBurSHIthLOe IHBhcmFmZmluLWVtYmVk ZNVjNEXxc6I4PMP2y5vc XdGvyzXNS5xjOA87RVOk h58iREH6o2J3ANsiXBRf SM2zHDZabMrfBHIhRtSi SJVgJQK5GAY1uJ8sEJqc nGytUXPxn7OzW4yocKLr GIS8WROoQJFgWT08OzWx zQJkMVBlMZg8KYsdDLGd eYFuyoQdOJTkknC3v8Mm GOUjYBAvx66hEC1ba67t VPvfT23gl4JaWrPul8Cg m9IkW6uhdOXdpLnemsDp vJFjVC1oKEEaolHphK7p wJLoe7RqmYhmQJUxG38e XwehIGDabB1rqXMfktBg e8PticGdVMGGSemylUZi J1QdN0AfMCPqRKRtnsO5 vNVlpvBuBbQkGQ0xPXPK PTnnKEY8AIqzzA9bVPTb uWlcQYv5vIJtePRiqI96 WTYqtjZqtRCay1IjN7Gm lTOoy4got0brJcBqNB7k emKvq0GdDPR0RSnzeB9v PW7fXNXjfLCatwLfdkMe bDb6FWz7bIQqd5W9kAIq QQKuRYPtCIWtl9AwPGhw epSdyoF0uJSbkRLrg1Hw OMAzEXMmfQ09lE7yPR7z tFVjHY8yiNYzq2GnF2d0 n1IgYSEgqJWmc5ZjwA4i ilftl7PuCF24IHiqpUUd k0w2fMaaVXq0cUAqBIKq fGX1lCHbiM34VTyoezCj KtLgXH5sABDjRBLkIFWb enWdm3j6NPG8wH0gaqDr ZWxscywgbXVsdGlwbGll ZCBieSAxMDAuIFRoZSBt JMnczSPwXHVgr9OtESsi ITLcHfrwSWCvMRKsK4HZ TBYmSQ5bbIRpLYgvFRBg clxwYXJkXHBhcn0= Diagnosis (test code = m3jszUAySKEhcXQoBMWq 34) MtbejyWdRWScjZHoQ1Rb hoapXNlrLS5mXS2brFya tXYndWMpWFLhYvWpd3xe o099bHBna7gdNRYEdjja cNk3xIcqK84je4N4Ppbg G4azIYJuIGkgVPWkKVla kLWyEPp4RCQetIZhsiQg QmIiURXpnLCgkCR0FGCd DV1stpiyGYdnRVynVGYr fyK8YPOnbFZjT6TfYUTb JR1yyijuNKY9SXluTULk DPO1JlQrKCIhl7Jhhil2 MjBccGFyZFxwbGFpblxm czIwXGNmMSBPdXRzaWRl TOwwHoiTYiC4IhBkAZxt E4CpOQKhEemKP3bADLJr DLFEUaisP63tyJNklSCa OQ1pTQObUcK5RcEqTjJa KgmlHNMuX3TtZFZiyplo iOdhYVstiS50RqBoUqGr i4JfRJO1ypvgDEFdh6Da eUnhcCIiITkcImC4RVix nA09PsNncEtiIeX5IFKI IGOZF3kAEWPBS2BDDrOT SEYBIH0LBQXyYNODDNKY RSZKZt3nRUeNGRAjVYBi S36hlAXskSxbDHFgzSSg XGxpMFxmaTBcbGluMCBN RFcvRkxaIFxwYXJ9 Comment (test code = g4oyeXDnVVUbrCKrGRJo 9835) YpjvssIzZGJajDYfD0Oq jclgFFwkBX9uZR7pwNmv dIZsmHGcYMBuJoSkc7dz o193iYHhb0xiAOSXlxmc jQd2fEcnC81lt5R3Qmfz U36gtVEwVZR9BZZqFTNg jUNrCIKzDLE7JFCcwYHj A9lyTJDrUZ2cildmMRwu DKjvXZAfkRK8ZIEmuTGk Q6OfMUOsBYwgAKNoquc6 WuSpCd1zrKJptYekNRfa YXJkXHBsYWluXGZzMjAg D0JtoIr6cLMjBSvnwHPr l7lzj4JyA1dbzOejIZsk e4SiwO2vFVIgnaZqpq7h ZCBieSByZWZlcnJpbmcg vF5zlIg8gRCfa27jo3ii tkX6zQO9PSVEYlOnoEix bGlnaHRzIHRoZSBlcGl0 aGVsaWFsIGNlbGxzLCBh bmQgcDYzIGFuZCBwNDAg cXmpeYzkK9o9ovY4aUQb bXlvZXBpdGhlbGlhbCBj YSokoh1lTGKlEYLnm0Ot wI6uz9n1VJLjDANszF91 bo3vaGSzk4F6pUButYOj d0LbcR0xtVh6KDYpLrU2 oBriRCUvHOQxqPFiO9M0 aB0eTvQytALxoJ== Biomarker Block(s) (test m3tkiDHpTLCusNMfFGSh code = 9841) UelgbsGqGPLlxAHjA4Om lwspXHgsZM1eMI9imTnn xWLmsCHqWUIbCqVsv5lj w055uHXed1doWERXnkuh uLm4kTebA51zn8M5Umcn Y0raBUGvFBqeBEPfJFgm jCOlDYm1XDTxcGCsmlLr RcZzPJHszLKreKF5PKWm HA2lzkneOQoxRMmsZZKp kxN6IBHskFWkS6ZyRMMs AI5nbzekKRO9YFzjUWAs WWO5GnKdBVObo2Fcozn6 MjBccGFyZFxwbGFpblxm lpZdCZX2wT5gPKIzp5Uk OiAgXGNmMSAyMjpJUzE4 NzBccGFyfQ== Disclaimer (test code = t4uldXGxCKYfeYCzDcJp 9844) LABnOSDji1ylFZFjhHPh ZzEwMzNcZnRuYmpcdWMx LFOsRjGhl3iav065xBBx h0reXBAuWgE9pDDsQDBv jYLoK314AYXhPVdqn2xw x0ErRSOwvAJua6Y5JAYH orwvyVs5vUqiB98ja9C7 AtnnV9ctZERsCHOiZ7It WT0sOLQkOxt1XPV1FYP9 XSDnHRBrP5MwEA1hMLLs yKGgBJq4h2hhbVaqFOJe USE1e8fiVCltbfIrQB3s ma8maOs4u6mycqRsRKQk NRAlxWORUSSkU1KnePgl Db0ibAi4bBcyAokwCEE6 Mkg2QH3bhj61orz3cObb ROVbufdxHoA8EXjzMGEs pgdlAQq1FKlnBYSjmQS9 YQJedBGhM0GuIZCdNF5c rjm4DUF7BLdcOKDdFtN6 NDBcaGVhZGVyeTcyMFxm m007DUY2YvPuRV2cB8Eu d5Y6mV5efBEzYWMbcOXn DbWnDPRwqq8wxPIkWEao s2RcEZT8uwF3qGPaxJZc JLPyIU83Kvdun3OfNvzm LHV3KFMxtaFzq0Nfj0jj SjHzdxWaX4twT2VjTERe QNJcZYOeMcErbnIvx6Op o4PdkLLfhJl0n3eyXQGc YUBawVwtd8sgDLL3XDZe G4U9oNAlw3ojHTjyKEMi mWW4hmQ1DYPtcJBzW9Zn vQ0iHUZxFR8huny7g6wu IXO4HHskQBRbDdI6mlV6 NDBcaGVhZGVyeTcyMFxm s055ZVU6QbNfYUUzs4Cx O8QnxZruL30phEprX41u WCMlwKwfdV3rbXodrR6q ZjBcZnMyNFxxbFxwbGFp dzcwWGfiymZ2PZpnoqjk RRXgQBokC3khCcMaPZHg oLkeBDcou6XmDYIaIXMe SdscslN4MLVVt23pLFRr x9TjEJEijB3ukGIbESze frPitGV6BCrqahYvDmYt quGtOQYpuN7pGDRqZP7l LSOcvnYsfx0wepDeUMXe FZSxK6CacdreiZiotnQz HMYfdw6oewIfSOK1VBTI VU1UTNDySNBeg68tIQTp zGurcM8xzLIuzzOhJWGz e5SjbW8ooIPHZEDbP9kk WF3rIQuec0OdjKXmfWLd bUF1CJVxs7MxJeMdcuYn wOXdzUVjY8WgdFyqX5kx AVSePRHamxYciRGsw5Fu INSwsXK4xYTrQS4KWeRS u96lWUOsPVYDdoCnIEJu kHhtpJB7wsX0jW2aJrHC ZiBhcHBsaWNhYmxlLCBj p859lf0ewqF6GDQfEJAn pigou3OlEZXkUEOyhQ93 YZKwHYXqvk9humybtEQi igNbP2Xcuaa2eU2oYYCa YWluXGYxXGZzMjJcbGFu ZzEwMzNcaGljaFxmMVxk LdBoKCHpTQnjC3xgSwOy ZnMyMlxwYXJ9 [facility] [place] [facility] [place] Interpretation 2022-11-27 23:08:26 Test Item Value Reference Range Interpretation Comments Materials Received (test f6rckZBjPGQfgLYeMpMy code = 9973) XIVuQUQmn0erVCPasTSp ZzEwMzNcZnRuYmpcdWMx BYIfUpOgp4doj720lJXt d1qqWTIeLtM3yIEqKIZd nCVeH897GMUlFOomx1qm h7HlUEJxxMTiq7U3PHKQ uxeamIo1yGdfS56pq7R6 CezpN3tgVWIaVNFtZ1Bz DH8jYCIkJnm4RLX2OMB3 ICJvDOQtW3LiRJ8qDBZp zRQsHGs9n8spzFqrJIPn PNQ2j5gpRWexwoRoUK9u vm4tmEu7z4yxlmQpHVBs YZKirGXLIDMiI3EniVlg Ng1vcDb3sUomChxoZGX8 Pam7XW1vsz67roo9nIwo PXQlhsxnOhG3SRqyDJXy fezlNHj7IOuhSXOwvIqt MFxtYXJncjcyMFxtYXJn dFK6TFPuyOFtE1NmLUHn ISycYNJumhn2YxOxIk9i tXAmuIebHDxmj0olu1pw iOLcJoj6APRwTgCyOhiu ITxit6Vba5tdYPJebr9u HGH8sMFgtMkva9O2qOEj GAAcbYNmomCfCPUofq10 qHXegVGweJXrqx6lxnSa zXQciBPeUND3xNFofvFi MCIdiMEvAVJaBK4iqYFl FMZbcP5izaisIMFsAySl cjelXSLhzNwazbQpBo2o hBloWUW9CLcvN8kzfU3l IyQ9KIxnQ7qqaP6mOGa8 AJiadYD0OUVucS8zAN3o eguvr8sxMgIvAX4vlwhq j0ijDgVcPQ6dmjj8f3ym NVV0FYriBNGlMbK4tdW9 NDBcaGVhZGVyeTcyMFxm u682QXF0XsJjVLVny8Sw G3AhdFtnQ00ssSjlR02b JIHohGsicT4rzByfxL5c MvZdZzTqXVg2ao97KLg7 nqmzsCuyUDi2jdEpNWOd CWM7TBRhfGYnVLLpO7o9 veDyWZJyBGS9YBTjzVWr FNYmB0j3joPjULQ5KGb5 cnBhZGRmdDNcdHJwYWRk YjBcdHJwYWRkZmIzXHRy wOPotOFxkREwwC4onLwl SVOlqTEhjP8aLXR4VLCu cmgzMjBcdHJoZHJcbHRy yg56MFKvigQpdTMgeJtr sRQjBEA9AJKfBPQeXGOm CAE2JGVtJmGteaWkIPse bGJyZHJiXGJyZHJzXGJy VPI0PHDdBrWxhxRvBAyo bGJyZHJsXGJyZHJzXGJy DLP4TEOtDcFwbzPnMCwn bGJyZHJyXGJyZHJzXGJy VNK0MISbEiFydjGiLQwy bHBhZHQxMFxjbHBhZGZ0 C9vvcKCyZMHwBVlgvQMu PRGxH4mueLMoBFuyATIe cGFkZmwzXGNscGFkYjBc Y5ewCQVhSqZrQ9ReeTl4 MDAwXGNsdmVydGFsdFxj wSNsTOL9HXSwEXBiJCOw ZKG5SBWbNcHlydRqCXyy bGJyZHJiXGJyZHJzXGJy HLV7WMSdYeUonvSeCFtu bGJyZHJsXGJyZHJzXGJy LZV6GULdToBryhDsUKja bGJyZHJyXGJyZHJzXGJy YZW8HPMsYpXqheCzSDuz bHBhZHQxMFxjbHBhZGZ0 P5knhHQaKGTyTQnasABm LNTbD6njeXMvGFnfBTDs cGFkZmwzXGNscGFkYjBc E3pgNSSbIwEvW7FanIq7 NjAwXGNsdmVydGFsdFxj oBHiUDP5ITUcUSDbKPYc WLJ6IRTxNrRchlBzESts bGJyZHJiXGJyZHJzXGJy HYT0DHZoOrJhuzTnOWlz bGJyZHJsXGJyZHJzXGJy NPZ5SRDcHgVwfyNfCJgu bGJyZHJyXGJyZHJzXGJy TVP2EEVrSoLbdjFePIqj bHBhZHQxMFxjbHBhZGZ0 R5vgcGLzYZAyXPareTKv AVRfX6abiFUbECyaBOIg cGFkZmwzXGNscGFkYjBc L0uvOIHgSfOuS9GdlVg1 HfYwDIDaemFihZ51Yqlx p3BnCVDxDSB3MVkhZXbi bFxwbGFpblxmMVxmczIw AXiksiojTOZxJMuaE3zk TdZfANSyaTukGKzqc2Zw XGYxXGNmMlxmczIwXGIg OSVzVDKqzK1vIygsP9Ys hE8jNXqdDfghE5ndFQWy d0UkkC8mGXwnbKHpxyqp MVxmczIwXGxhbmcxMDMz HKytN5beBtFdAEYlyYqf ZUyuy6ZdMHOvUXQeUeag npQnIEm1nfYrBHHnjOeu vNOdRYchbiWfeIynp0Aw xqUyrKlgYEByVTe0tjGk uvwaaJo0uWZwlBdaVTWp qHfhgH6tXaClFqDfDYai bGFpblxmMVxmczIwXGxh pbayUCChEGopE3gaEzSe NHBfsNllJAkfw0MsZSSg TJCcHgavdmVhOEAoZ94d bGVjdGVkXHBsYWluXGYx XGZzMjBcbGFuZzEwMzNc aGljaFxmMVxkYmNoXGYx IAqvR2nyZkYiG7EmSPPa DhRitGDeC3jyP2KshGar YXJkXGludGJsXHNzcGFy ZTA0qWCsazZnwNKioVUk RHSeQZosZLV9vAKefpae oKFdxnapXBhrgyU1ROWo YWluXGYxXGZzMjBcbGFu ZzEwMzNcaGljaFxmMVxk CeCpSTBmLMxtD9dgUpRu O8XoXIAtMqUvEwXQQJSb aXZlZFxwbGFpblxmMVxm czIwXGxhbmcxMDMzXGhp R8mvSyKoFZWpmAgrVNem q5LtVJYmPNBkXkkjrdKv KLs0nlEdWURmsQpveX45 Ouiuoq33LMOeb0ftXFNj G5LzwGBnNHZdcKMlHYbe MDhcdHJwYWRkZmwzXHRy cGFkZHIxMDhcdHJwYWRk ZnIzXHRycGFkZHQwXHRy kQUnFBN5A5w2zkWkPHIg OSr2wfAoETArPwTktVOr SJE0FBn6KgspqmB9mEMq X8q0SavdgrUgMAytdGGl kz15NCKizwGsrJHntKoj zLTvVLH8PRRcWXUeWNRa GLL2HXIiWoBtonLzHJlx bGJyZHJiXGJyZHJzXGJy OBL8UUZtWgXrdyAuSQhf bGJyZHJsXGJyZHJzXGJy BRO8LIXqCiRcpyQoEPmu bGJyZHJyXGJyZHJzXGJy HHE2UJZrGeXyweFbBCyh bHBhZHQxMFxjbHBhZGZ0 Y6lrkIWdXONcMYfmwBZp GXHjF8cqhOBlANanSEBy cGFkZmwzXGNscGFkYjBc T7xpVTRuVzWpO3YvuUe7 MDAwXGNsdmVydGFsdFxj pZYxCEA7HVBsYHVbJCMw MLG3KCNoQlBtyxVkHWsz bGJyZHJiXGJyZHJzXGJy BSP4PIQuZbPlueKbMXwu bGJyZHJsXGJyZHJzXGJy HLE9MVRhAaUwxpFcPOph bGJyZHJyXGJyZHJzXGJy HHN5ZGHuMxJofeOlGTss bHBhZHQxMFxjbHBhZGZ0 M5aceFGkILGlYYncvIKs KWLdI1irrSAnQKrgAZKd cGFkZmwzXGNscGFkYjBc V2ssJDKsUmVhE6VscQw3 NjAwXGNsdmVydGFsdFxj iVGwZHR2NFBoRKHmGLGy BUF4VEFlMbIhgbOrFUsx bGJyZHJiXGJyZHJzXGJy FYX7OXMuRpVzumUiAYno bGJyZHJsXGJyZHJzXGJy ESM4FZQtCpUxpgGgYWvi bGJyZHJyXGJyZHJzXGJy HOW7LIUfZpZzkiPfTXau bHBhZHQxMFxjbHBhZGZ0 J8hnuPLjDRPwKKcqmNBr QESbC9iarZNkBLsaJMHy cGFkZmwzXGNscGFkYjBc P8mbWEAhZvEkW7SmgVa1 NzWvVKHjviJbbP29Jsqw z1UeGFYkPUI0JHovBZrw bFxwbGFpblxmMFxmczI0 XHBsYWluXGYxXGZzMjBc bGFuZzEwMzNcaGljaFxm JDdcGgIvEUHdDVnfM8se OxJfW6NcUUEgVtSfHR2l KeG2JJWdZRtwLKM4WOCY FIUbQZKZG9TJLxzaHIWT A0QcaRrfcO0oPkBhXyNq NPumUI1qHNUnG3dpqJVq PEDwVRYzV9ndWmQesF4n aFxmMVxjZjJcZnMyMFxs dHJjaFxjZWxsXHBhcmRc wO47Uzytn1XxVSYxKCZ2 MFxzMFxxbFxwbGFpblxm KMzvrwL1XDMoZJqyBYXf XGZzMjBcbGFuZzEwMzNc aGljaFxmMVxkYmNoXGYx ODuqT0gbIoFeE0VeQVSa MjAgMTIvMTYvMjAyMlxw bGFpblxmMVxmczIwXGxh ohuqKXAyBAxhH6lnQkPl TMHwhPwbBLnnd8WcMYAo SURsKsswnwFoDSh9jwBr XGNlbGxccGFyZFxpbnRi eFhow2BdtdGsmWfoJARp XHFsXHBsYWluXGYwXGZz DtDueLnkaL2gRqYxGrQv XFttWA4fMWWeF5mbwMXg CQArRYWtJ2oyFyKseX7n aFxmMVxjZjJcZnMyMCAx MoJ9XbBaWhRioCxuuS0s AmVhFeWaMUzeML4sNOPk Z1zpxZRgWYFkUJGrO1wo IuFxdT8ibCoxEMuhNfNq ZnMyMFxsdHJjaFxjZWxs OPidzKDzFZDmr7yhJICj KSQciSAeETW5cRSlkuLq qElgoJenuS2eKqNwMlKx NFxwbGFpblxmMVxmczIw VGcfbvxpMCLkRRcwC4jz TrZnJYRjbCxmLNwwx9Pa XGYxXGZzMjBccGFyfQ== Addendum 1 (test code = m9gozKCsOTMwzCQmIVFw 37) DqmtwyCwAZCieQQgL9Ca qitdHEzwFO5qFB5wjKct oSEunXDhPVUtJgZrq6iy q307iRIve1wmVBAESQyp OLGDFHk7i5xmRPHIvfgh pRh7uTuzD05gt0K4Kepf V48gkZHfMKY6RRSnRPFy gVEzGIKjQSJ3YLMqqHYi S9vnDRCwOR0mvoylXJmj AMooWIKkqZF6SZQwzMGy I0XsBVUtBEngHKZxvlu6 EcJtMq1jyZWuwQssFSmo YXJkXHBsYWluXGYxXGZz MjAgQXQgdGhlIHJlcXVl m4Kzs6ZqrBbqGVPjAFJ2 rT1tGLKomTTnC1dedyE9 rUVoXo6ryN20cU5eMBJ5 kIXbJCEhz0QgNGGoNHDl n4FyMKJpBT7dPSwmcSYx sMOpbMDbVUO1PN1IRCOy PCYrx61qClKbrYYnJLGt mmOpmHDqXAZkRJD3oG5j ciBjZWxscyBhcmUgbmVn CRDiytGvQr7nKTxcpkKb PAZtSTJcsBHohP83yk4z yCR2s0HfIN3rW2WnYPJx XGc2g3ixYqEacCUjNVVt zxDqqRKsCWWrAXO0oU0f ggKySChnsrVqxeQqrX7s aXRpdmUgIGZvciBjbGVh xiFcXU4OMRKAXBSvYBD7 UJKnXVKirFMzvO81me0z jPC9e0KeFI7wI4XmFEGa LTi0d7foYrLgeXTcAACb fiSTOU9TAASwB3wqnbNv MjJDMywgRGFrbyBQaGFy iUZ0BVHMp79gcA4sYUFN l1QmkWd2PSYAN54xCXFz A8WLNDqviXTypXDzvrL1 aGFuIDFccGFyXHBhclxp KXNxYLSlt7Z4RCeuVk6a qOW1jN6kSGLvOOF2UJNt aXMgYXNzYXkgaXMgbWFu uMJfB2C3sdFhONO0APFu aWxlbnQgRGFrbyBhbmQg fUNiljUiDK9qcu6trM6w WJwiCV22yI2JUZ1AGFkc I4qgepHlVoZMGo8kOAMz zFYleDSaJz6ciELmOB2z BJBcfi2hmEobBYEsrLLx IHBhcmFmZmluLWVtYmVk WMDeFYAze2T5LYI6s9ga YfLidlVLD2tkFF85ITFn o37sWIL3q9P0HJayLNLd TY3iAZZzyWnmWGChNjHb ZJRpBJN7HMO7iS8hBMub lQnmXRMte7PuY5wyjKBv WFD6CTOhGEBnYW88IqOy qLErOIMjVUi6BSzjUWKd fJHrogPgXOTsbnW1x6Dk DQPbEAAga38lAX0rc08a JLyeV81cl3IfLtVxi6Sa q6XzH0sdbIJqoWcddeKx rIXvBK6mALFopaVhvS9e lBLfj7GexJfcIEYsY84o NwvnHWVlvQ8zyBKdstBk d2NyekMvHEVXObeulZLt I0MnM9AmDRHpPJJqhfI5 sXNaboEhKcOqSY3zOTUX GPomWDC2WZnhgI8bSVWi mRupNQw7bDWkfCUvuI89 KMNbqsLyxVOmp1BzQ5Gb lVDme1ntj6vzIzScAL5v pjXtd4YmTXD5YYpulI5t GR0qVGAjfGJbpoCfuqRd jPb5SHl7uDFvx7J8cRXq NHPeHXDlOQFnk9LpRCva uaJegrZ8kXIbhTMdo8Lf IHJeHKDykT23xD8iEV6f qFDvQD7qcBWgo2AyX3b1 b5PfGSSsoGPip5VblC6w whcml5HjYQ09MLzjaISc z6c4mWvoCLh4yPIjISOz yBM4aOGokG13WVgfmaRg YlMeCW6jWXMkKKBoYFLr bvMoz1u6XGH0uK2yipAe ZWxscywgbXVsdGlwbGll ZCBieSAxMDAuIFRoZSBt VMhzwPQcGFCqi4BpDJnq IMHjVxlkYPKzVFOzM4JY CMPpNB3ioOGnEMgzXQZb clxwYXJkXHBhcn0= Diagnosis (test code = v3hvpWQcESJqvQPfYRRz 34) BymignArHGXohVDjQ0Gp vfvzDGdyHA9dNN5rxTwr rPEukZLuLQIoFuEwb6vm a472cXJmc0siBEORaujx eVd8vGhkB18zl8V7Owyj N6plUJOcCLrhGCYbRRwx uZHeXEx2IUOgvVUrkuBs AmAfDUYijMHrxNY1GDAa XV0oqaidBTpcJMrqNOCb qvN4EPXdzITtC7IfNTHn RX6cattdLAA7NEcsTPXh TRE1UpQkSMMcy7Sczub8 MjBccGFyZFxwbGFpblxm czIwXGNmMSBPdXRzaWRl PJxeAohUNjO0JgEoFIrn Z8ZoQTEjKaqSN2fMBMKe OMZLVwjnQ91jlTVxkAPe NN0jFOEtPaX5RmXbVjGd IladCIImQ5YsTDItmqbd rOmoHEscdX25GzPoYsEj q0McVJT2ozbjQGQdq8Jh aWpbkVXrSAddNnC4XChg rX34UwHeaJswZbO3JLWV CYQXC4aARQHUP8JSFyFB UGFNBM1UGVUwIVMAFPPR UZYLPi3hKGqUBRBeQEQi L59fpHJbkJsgTMXotKRg XGxpMFxmaTBcbGluMCBN RFcvRkxaIFxwYXJ9 Comment (test code = m3ahxBHpWPBucWNeJKCl 9835) SbiiszDzTTVpoPRcQ9Lc ronaQCqbCZ7rYU2uiCbb eLSpjIDfHEDtUgYur4pd z450pGEcb8aeKLOBszio cRz8wWnpY57sz6Z8Jovv R90fgRZaYPS4AFNxJGRx lWEdFWEaIOP3SFMfnHOz R8ciVECyNT0akiaxNQee OXslATDylQY2HNNxxDEc Z9PtWQWoJHylKJReykp3 WyZuJj1wgLHkzImvXVqe YXJkXHBsYWluXGZzMjAg P0OmyPk1nIXuMVpluKXa h7aez3QxJ4bvtTtzKQcg c0ZiqH0wZOJkacTprn8r ZCBieSByZWZlcnJpbmcg qM5jeRy1iXXzm10oz4mg gzJ7wFA9PDLIEeFsgNgw bGlnaHRzIHRoZSBlcGl0 aGVsaWFsIGNlbGxzLCBh bmQgcDYzIGFuZCBwNDAg wSmvuCppO0e0wsZ5kYOl bXlvZXBpdGhlbGlhbCBj QPuvsl5kMYOlGBRfi2Rm kN3lr7b5YJJdOWEvqQ28 wr0ifIUow1P3kYUzlLTy d0VkbM8rpPn4KWZcEgM9 wRczAUPdCLTdvMCjD5T6 iI3cNpJmbPWluQ== Biomarker Block(s) (test r4yeyLSpYOZdiSDaHPIu code = 9841) QgwfhcYiJONknAVxJ4Ds rapsQNuwRX8rXY1lbLoa aGLhkEWsJLWmDyEzq7zw j722sXImq7nqASSGwjhk oNx6xMfkU17cn9F8Tdue S9qaCWBoWWglNSSgFPxw vGNiZOl2YYJroITaalYh NiUmPQBjiQXhpHX1BDBr YZ5zdrtpBVinRFujKBGk spT9GFSpxPSjS4SnPTDe UR5hbakpZPP8VBpuDAFh HLZ7EpWaDMNay6Jeoot8 MjBccGFyZFxwbGFpblxm ogFtDCA6dY4mWNBqz5Av OiAgXGNmMSAyMjpJUzE4 NzBccGFyfQ== Disclaimer (test code = y9tbaHRqQECoaPJuFkHe 9862) WNPdZXNjc3fhEJWztECs ZzEwMzNcZnRuYmpcdWMx YKFmEsOyv9dlv947yTMk y1lmJBGrKkY4oYVvRDSr oTRyT057UBPqEDvgj3ie u8TbSWXzbYTqm1W8HWFS utzskOg2zYlsF85sy3T2 AuakM1mbOYInNNPsI5Wu BW8uESKmUrw8PCZ0FZG3 FPJcLBQlO5NkCN7rTURk iMCsIKy8m1epbFnzZLUi FCY9f5weOPnoggOnSZ0s gs4giPx4e4qngqVmLJFl CDHsbEWQOCXnS7GpaOqa Mj5twJo6xLeaEnjbKOB8 Cle2EQ8tgi89ohr9bTah WLOjuiuiKbC6HXshDTKf ocklRAb5CYyjHVDefND6 PDCyfAWbS6CvSMFrJU7j yqi7DPX1IKanJWPzFqX3 NDBcaGVhZGVyeTcyMFxm h778ANT2KeGsOW6kW8Hj b7J3mC0hyCKzNYRqyCTw ZrReTLAzgw3pdPKpYIgo m8FbOHN4qqP3xJYvuLQk PMJvUN56Vqhvf5QeYhdy VMR1WYQagdYok7Tqy2wu NsChjhDoR3ykQ4OwZJYc ZSTzCVLzZpWlfgDlk4Ub l9RiaFHgxVt2g5zrGCEr SBUptXaqf6pyKBF3CFMe J3E2fNVto9uxCTjaSIXd kZQ5ldV4RVNxjBUqC3Ul jR4sZKNjYR1wvmc7o2pv AKI2VDcrDAIoVyR7cuU3 NDBcaGVhZGVyeTcyMFxm p462FQP6IyUsRRCrq9Tx Y9FhdSnrB91yzIusF44n JSBviMlveH5jyAeccO5g ZjBcZnMyNFxxbFxwbGFp oclcHMzyuaP4USlwoior BPOpWNhuP5stDiQiIMQt dJndQEnzu7XoMHMdSVAq BohjjnP8UCMEq42aTPNr d2YmLMSuqL5qcLAbTYxg dsEumGG6XNejleLrBdVt nlHuJJAbzW7sOJJuDI3i XVUmumLqjy2wihVwFEMc QGPiW6JxvogkqPfckeLm VPRely2wzzVpDVT4AVMR RA7ZVJUiWAWhd29gTBVc bAvjjW2oqPUnrsXuCGKo n0YclJ9kkBTQYDGoY3oi FX7pDCxug4BowFJjsWUm kKS2QNBqt6ZaLcZvqpVi sSZvyLXhK9FanTkdE2pn YOBsCPEmlnCfbREjb8Ox CASwjKU3yOMfAD7NOqLL w78hBSWvGHXFogZdWIKc aOmbxZL2zaJ2eP7xZiQM ZiBhcHBsaWNhYmxlLCBj k281in5ltzH9GXInSEFy lveai7RkAIAdLZZdqD54 ZXXjJFEcrb4ebiaxuPIs kfNyS0Txhsj4vZ3sQMSw YWluXGYxXGZzMjJcbGFu ZzEwMzNcaGljaFxmMVxk JcRrOUJlLWytN9leVoJr ZnMyMlxwYXJ9 [facility] MOLECULAR [id number] 16:06:41 Test Item Value Reference Range Interpretation Comments POCT Molecular FluA (test code = Negative Negative 46458-4) POCT Molecular FluB (test code = Negative Negative 53531-1) Lab Interpretation (test code = Normal 40435-4) [facility] MOLECULAR [id number] 16:06:41 Test Item Value Reference Range Interpretation Comments POCT Molecular FluA (test code = Negative Negative 65686-8) POCT Molecular FluB (test code = Negative Negative 85021-5) Lab Interpretation (test code = Normal 31530-0) [facility] [id number] 16:19:00Reason for Exam:->Morbid (severe) obesity due to excess calories [facility] 1965 Sex: FFINAL REPORT [place], UGI, WITH KUB CLINICAL HISTORY: Morbid (severe) obesity due toexcess calories COMPARISON: None. TECHNIQUE: A fit model abdominal radiograph is acquired. The esophagus, stomach, and proximal small bowel are evaluated with single contrast technique after oral ingestionof thick and thin barium using real-time fluoroscopy and acquisition of multiple spot digital radiographs. Patient could not tolerate gas granules, could not perform double contrast technique. 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 [...] unremarkable single contrast upper GI. Signed: Steve Gavineport Verified Date/Time: 07/28/2022 16:19:45 Tissue Exam 2022-01-12 18:24:44 Test Item Value Reference Range Interpretation Comments Case Report (test code Surgical Pathology = 104) Report Case: [id number] Authorizing Provider: Dewayne Wise MD Collected: 01/09/2022 11:31 AM Ordering Location: [facility] Endoscopy Received: 01/09/2022 03:51 PM Services Pathologist: Evelin Wharton MD Specimens: A) - Polyp, Colon - Right/Ascending, ascending colon polyp B) - Polyp, Colon - Sigmoid, sigmoid polyp C) - Biopsy, Gastric, random gastric bx DIAGNOSIS (test code = [id number] 3220) FuZzEwMzNcZnRuYmpcdWMx IHtccnRmMVxlcGljOTYwMV pkzzTzKBDpyLMdA7Ggitcx VYapNJ4lRL9elUdzvOWiyK XhGVDsMjPxs7bxg206rOIh c7tsMPVXfgypwDo1zTqfU4 4he0Z1JmsxU30jaCEtFGM6 EFPjIPTkfRZxRVNyAFL0AJ EeePLcZ6jdZPKlBJ0tcjgs WXaoOYinBTTbjTQ5FGXofH HxT2QmRARxVSprJQHpiht9 IeVfCy3alGDlrLneRSkbXH RxONCvOKtlUJShBjWtPS6x V64PS74nLACMB0vOI7MSJ2 CDDTmZKjnjUK8PGVNVY1AN JBs7NMRrurz4JTQgGSUJIA ENDCJNMPTTBJ0MQZNacYIg UGApwdWKUkCMI2hRTeyhQ8 nFPO4HZFjeBG3EYVGLG7ME EPd3PAVeswg8IYCpXFNEPM AJCPOTQEYMIP0DNDBhVIWb htrdXFOgPq2fS2LLJQXYWO qnV7qHMKXTM0JlD6TGP4qM TZOOOUYERS6ZN4ormYXpCA RhYiAtIFJFQUNUSVZFIEdB S5XIP2TSEAcCBKWigyd3AP TlYAOCFZwKIAcQZB0PL36W UZGYYMJIXD2AEETLMWuHPO 9HSUMgQUxURVJBVElPTlxw SUAscMSwKM9oHoXYGTMQEb ZvIh4EVXeDYGfIQ0WCI2YS MqFLSQLZO99KH2WQRHITAc VTQlDEM8HDXO1KYLBPIRvV W8rcCPZ1w0cxjBVzZUOohN UxODAwMFxhbnNpXGRlZmxh zhynLEXrIRV0uqHoUHJhDH obGCLrHKhyPz8esDVtlWmm RfDcHRFgw1giykLMcaqmxD s1c1ovFHKdShW1fZZwVFcf Z9kazzQdaZQaMAOfLGj2eJ 39UZCrsQ4zeWNgRIvcokKc TlG7LKkoXNIfKlT6JSVaoA FgDBPtZ3tgHGAnFWvaZDJt ZMhjkPReYQP9wEpuj5T6fI VzaGVldHtcZjBcZnMyMiBO d9KkPUx1rHniM1QsTUSqUc Q6tTYaTOZeTHqkAPOrZGOo hfK2uF59PXsjbwQ3yOUcg2 Fto31eh089cE3miXFuNHF0 HJRpTGNtoGIuOEGjKNM0MI XcjAQsV6wtKCPrHW1beqcy WLqrIKnlHSHrcGO7UVYytD TtS4OrHKTqAPphEOOmaur1 LqGqKq7xcKKsvArlSZzgx9 yal5avrITaQta3YQEbRxBg FqcwZZtld7Pzb1goPLFcfp 1oKZB7yVBjiJsub0E4bBNb DQHglSKdKPHzHR4qvDXcWS LznE9otkjcLQXaCcGszwyg WALpgDjinuUsNh7swMjoEB P8GMdjF0yndJ8pLaT4QBvo L4cdsN6wOFy0NXjpTBZioR D5pwC5LAEnnYVkG0YqhJ1p RTJbFN0wtzh0t3yzTDE4XZ ldERBtBwL3klT9XIVzuZXg KOSxtGuvGEdxc219QRC0Sx TdRIVbs9AhT2KtxNsbR14t wSljT46nLFGleLvafG2raU qiyR1jZvWbXxHdCEoomIvo VG3cQBQpY6wzoQAuFUYvZS CyY6amRiUnvQ7usHtcLUey rlCyZTHsXse2AJSjsZCiZU NhQsf7TYEgYDUcI14vcwjj XBX9gU9nd7izb6KdKQewAG D5ACMlh39zZUwfswP0AMtp Pr93KIosHTO0JCsnZHG3oL == CPT Code(s) (test code m9djfOIzUXFfzCJ2MzDrGR = 3357) Haa4vkb3NvsBGjoBXtKCqp nOJywjXnuk43hUX0gV06EY 9rAAWrYrD2WVDddbG3Pcd3 HXJwBUZpaIZuG120t5tzy7 dwpfQhkXT0mKakMXIduoud YhW0JAxeHFUhdqboUPs9ZA xrXBOtdGU7ISEbuGVjV8Da WFOcWC2inou2BYB3HHqgBP MvYoQ1ROYxzIXuBNGjtPal TGxxy973IPN0QnKsTZLlrf NjvQkjuS3pLfSrNNN2BBKw NVgzXHBhcn0= CLINICAL HISTORY (test o1apzTEyOVCemUG7YxUsZE code = 3356) Gvb4xop5KdcBKmoBUtWJun kWGlheVpbk99iGG7uI59LI 8pNGVkRrN8UZHcazB8Mfk6 ENVwLNQphTRgB665q0ekb2 yoluEijQV3zXpeWVIsqrhz GxY2KQctKBWuptrxSQa5RD saITXphOZ5BJQgpNZsV7Nd TJKwGT4rjrd6BDU2HXznAH NsWwO9ZJAhvVXvIQNvoIql DDjbq563NKE2EiEeGWPtws AlcVxpvJ8zDoEyKSPKCVS6 ja0ea35jzEWiIRZbZVZhCa e8cZAytRXzYHXtCGFim6w6 ePGhTsIat4bztitzMOU5 SPECIMEN SOURCE (test t0gcjOGzSWHjtAY6HoAzLP code = 3377) Nrf0bjj6KfcUGctJZeLKvs yAFviqDwwe37sAP1uQ25HH 0xDULlEkG7JWCbpwI1Onk7 BIXfRNXziUWaU373u6ujq3 jpxdIqsUN2hTuqVIJnjvlz YpO7IBymWUUquvlpTGh3EP xcPUVyaKO6ZQGjxFTxU5Mp JOYeJJ8uysp6TUF4QOraXM NuKeV9NCFxyOGmLGHmzYip JYuwc221ZMD7DcSgZSFuvh UqrOxjwP1xDtCrRVZRYsEa VD4jnRCtGTUeiT7xHPOtC4 v7I6DfW2KlAJbsG6ocnL9r CAJyFZVJi2h8mHpcP05kl2 8rs5fnsV7tYOnudZ5qJBFd BCBArY3xn0yjGLegz7SmiS MsIHJhbmRvbVxwYXJ9 GROSS DESCRIPTION (test o1wzaHNeVDKieIJsGpHtXJ code = 3366) VcPARde3ofOJGlbHFeZfEv MzNcZnRuYmpcdWMxXGRlZm Its5kuu055pXRml2prBKBS qlabaUu2b6ftKHFsOsN3jX RjKVgiY5piurBjoIPlBXZl KJf2dA24DNKnzH2grHZiQK rbluPqSyI2ANagOCZnQwC2 ABGcrOQvUHRpV3jaICCqTM wnBMNhASuwmYHvVQG5jGdn f6T1rUCyoOSxbNzcEeFvKr YxZBMTk5RbTEu7eLemP0Ym AJDtQoG2lAQhGUVdJPkmAC JxDNFlsnJ0bA44IXabbfQ5 yGHhx2Ior77pb549mZ1roR QuBTJ3ZHZeQORxzGQfTONv VEB9AGLppXStQ7o5DrRacZ CjE1M7GaQrbFIuJ3N9UgQb sJCaF4E1MeCteQSkOZUocU IoVa9jzQAziYLcbr1dqq34 SOK0y9NlmUkwSRL5QEF6Bd KkHa4vmQDbSSGpGRXavFBl NOXrHO9ajTFqXBAemD0tbt xjXHBnYnJkcmhlYWRccGdi apOnWx1yyStcSSW6JErmD2 jmtQ2cUhZ2POhaT0bycI5q ZUa6CRxulVJ6IMHegB1wQI 4povoay5frAwZbDF9jrzxb x5xqZqOjBT1vblb3a0vgLi MyFV3ajjcyz7oiOhMpRDwa TTXrhborWRThu1CqnbqdJC Gdm9XqD6YcfBlvQ69pcTek C77iGJIdtPkupH9wpNotqA 5cZjBcZnMyNFxwYXJkXHBs YWluXGYxXGZzMjBcbGFuZz EwMzNcaGljaFxmMVxkYmNo MRHtQGxyW3pqYoNjEhTwUI BBLiBSZWNlaXZlZCBpbiBm e5CqZMlvyqHdUHTdjKBsZX dpdGggdGhlIHBhdGllbnRc X7U8yfHcIY4kEHWzSROaW2 LcEUFtY49pSIUueP7jACMm QE0fSFHts1CwvlGwqnneI6 4zb73ovO6kfERuUGGiIQKp m23kjCC6lzJrFoQcRUWjGT JmHO1dVXYdktWis9I0LAGi r9N8EQJrXBEchVAfefpuZN 49XWdwHL52TOicOY4cPENv JgOMcVKti4OcC6aiPN8uqH Pbm6VlvNi5wCCdOUteHSAd kZ3lxI0kNOLoTEmcrkHfaU luZSBCLiBSZWNlaXZlZCBp dxTez9IpTCgfpvFvXZCcoO VkIHdpdGggdGhlIHBhdGll zoTaC1Z7hhPxOB1pUOKiBS LqH5UjKTJcM24bKGFysL2g HVHuDR0mEIVkkFkae5ymCR NsdP9cYCBbtZtxKhTweyNg B42nl7fctBAvb5CsJcUydF QrXAWhy3LgkZXaVPFxvezv p13bvME3wLRejGRfkkFfA6 wvYkQqrjZudGkdNMFvh45c KS69DPbzWW9wERyyXL1nID OyOESlIQTkKXW5WSEeNoS0 IDAuMiBjbSBhbmQgbWVhc3 UhqL0fQORhVkT0TNGyIlO8 EFMhGgFgbWVlcfMoE7zgMJ nrpGPqNXZvSVByuEAhxG1r igTgvbLmwGQcjBM9YGVrwE 2bjB25oxLsioCIHI0zlAek DYzygI5uBWEaGBNtF0Dhgf WsNUnrDYIkps3fwJpzBJvz PlYhNLSob6u1rED1sFUstI V1eNNvvFpySpNqMS2xuMYr DF2jPLzyLMgihzQxj1JiWE 92dVKmwwCgglBqHlqnr9Le aWNkNuelVKPaKCVzj93xdV V4ukJgChP9TGBhODInpzBp QsN1SE5mzCmuvaNmc3B2OB Ikj3I8SJNsQW7dzT4mQMnn IHNpemUgZnJvbSAwLjMgeC QrPxAknAVwPnHgD97xoX0h JU11PNlxIR5mLHdpUJ9lDB NtIGFuZCBtZWFzdXJpbmcg PN4vZFooDV63HXwxNL0mOW SvKYilSCDcS7MqN8V6PX6q VGhlIHNwZWNpbWVuIGlzIH B4Tp8njVUoHVIspmV3j4Vz KNexRLIuXedznD9uMUmwej MsF4ePJXHkfs7= MICROSCOPIC DESCRIPTION y2euvDGyNOXrdMA5DnKoJF (test code = 3371) Tsh9ktf1JcvWEwjVMfZBzq eQCysfBbez68uLS7mV28WL 4jVUMtSgN6DIEywmB3Ihu0 HCSbWMJbcWJcD140m6mep9 lwwiRwfEV5tUejYOEokjms MmN8GWuzZNPhcyboDWm9MZ roQMHokRU1RFZxjPQsQ7Ap MLGnVH3bpvc9SUE7GXuiNX BzZxB4BDQlcGEkVJKcpOoj BOrft400LEN6BpFhHBQpgn HjtVmzvN8sBqPjEGODNSCk TM8zFVboW0tpH2EmQUVzNO sarKlbr8olYB3kQV5hhMzj wpTxU7ravWVieFPtgoMjBk vqCS9bIXYgybyzBEDzSq6n Ya1gb1nbrfpyaQYsscEvzF 2luFIbzPE7xY6eGFGzchJw w0LwdiQwXS2pqAZpjOYamP CrQGR7y5OeIBCkBBXicwGp CZulM64indB8MSosPCUpGF 9sGM0jUSzvpFssy3HsU8Nm ocYhnNQei35vN4MxiKVvdp XxqcDvw7GcowBrsmXgk0I1 rU1vUAG1EQamkp6cLXpiDA J9 [id number] 18:24:44 Test Item Value Reference Range Interpretation Comments Case Report (test code Surgical Pathology = 104) Report Case: [id number] Authorizing Provider: Dewayne Wise MD Collected: 01/09/2022 11:31 AM Ordering Location: [facility] Endoscopy Received: 01/09/2022 03:51 PM Services Pathologist: Evelin Wharton MD Specimens: A) - Polyp, Colon - Right/Ascending, ascending colon polyp B) - Polyp, Colon - Sigmoid, sigmoid polyp C) - Biopsy, Gastric, random gastric bx DIAGNOSIS (test code = [id number] 3220) FuZzEwMzNcZnRuYmpcdWMx IHtccnRmMVxlcGljOTYwMV fbbiCcAJUdsEStX8Zjknvt PSafWN4tEL0pcLfaeXOkxS WqXUIpOmBgh5clh553iXBt j3tjJVFOicufaAx1fNhfN1 3ki2U1XjbaS82juSNoJAD2 OVGwZOGdoLPmGWDaKON8ZX AafQUxJ0ymUFOdQV2pwzlr QCuzOShkVBNcqPA6RGDysM TtI1UxGMKhKItpFKNxbpz0 MyHiNq4urXFxnTcpXMujRV NmULOgRVkdCWWwPtCmLK3j N34HP62eZUHFK0hAL1OCV9 MDBGoLNsmoXP4ATQVIY7KC AMr8VQFkanc4OCHqEOVFJM FCWDICEPSVCG7KEOOlkRVd AJEqnyUUErCVV8oZYiklW5 wXTA2IOXxoUB2OEPZQU6JD VKf0ZEZdmdd5ZMHkJATZUH WZVASFGJFJFK6CIJZtDWYa lrnzJDRyZm4wC4QBOWUVHP hzU3lUGOVYD3WlA3RXY3rU HEIBKWSUNB1VP1oqyBGeUO RhYiAtIFJFQUNUSVZFIEdB A8WGL5TEGYoQAHZyhzf4KE OoVUKJXOaOWNvKFD2GA30J DJXZBUSZOE1XNPOKGUrPZL 9HSUMgQUxURVJBVElPTlxw MWRgfARdRN6lUcKWHMHPJi LlPg8AZMgJOSwCR8RSM6WC BpOUNOWDA31UQ6FZZNNRJf HDDnKUY4ILQX0EFDVZWAfA L0cwMAQ7y4geqUVtUZUshH UxODAwMFxhbnNpXGRlZmxh znlnJOCsKSX4lnOkIIElTV ivBPUlRWfsFp6rbUZijFgp YoKhWSUat2impvQPajedfP b7u9dgSRKzGjC2qKQmTCno G7fyzqYumZTbSGNtZHl6gF 59DNJmiB3iqOUmLYperlEv JjZ2YQvxSWJlYoS3DDDqvM FeFYUzP1xwNBPnUScgPXUx MFmgePMqJAL2nQueq7I2bD VzaGVldHtcZjBcZnMyMiBO a0GfEFt1rMhfV6OaRAErQw S7zLTgQPOuWLckYGPwZAFa yuN4yK27GJoaxbB2gAYer3 Rka83jd856eD6orFCsJTL0 IJAfSJSxoBRcPCNxFMU6KP KlzXBxK3tzVBKwST8wckra JFuaUUqnCWDxgKK9KADtsH RmX0SwXPNyRDovEHHesgx9 YaFiOs1viEHfbTiiSSvxu9 oeg5iwuVApVlx7YXIcGsHk GujvLYpow2Nps3mmSQEzss 6xWUE6aMMjjUdhk9W5kCGx LRBakUNwUJQdSL3qvQRzDL WkeA4alhyeDUYsGpEeujuu IWOffXhainNpOv1auRteJZ A3MSreS0cgmX1kKpQ0NMwo I8oobS2hGLt1NTzeCNCeaI P2reX2GNRfcZOgC1LeqK9c FPKkEK6iasi1j9qoHCC2TL skUNSsKfT2jdR1BQSfvEVl CPBobBxjSJcfm148SLT3Ow AxQRTbq5FuQ5OwwMfyI10j tGdoZ28aGNAppTjxbE0fyW gajQ6pTmWdWwRmFWcjhBjp AL9xYHLoE3wviZVpMAFzVG ZmU8pfNvIdoJ1joEfsNRxa koNcAIBvQup2GCMksCEsGN KmPrh5LAWeXWLpP22nrujr XKK1dY8gx4zme3DyHVawSH X0EXFhu88dTVcvfkD4NRwj Kf92QTbrKJG2PMwnIYX0gW == CPT Code(s) (test code m3pwvOTiKXMgpYY7CdMaZA = 3357) Dnr6qes0LaiVBcfGFtZUmq eTWfxiHdep69iQP1uN48NH 5mOCJxIwT3JPBecwO4Pix6 ZSDxIDPlpQRaX372q0cxg0 vixeEmyHS7fSihXADahcks IcC0VEobHCWoezerTFb3TI miZYAixMW4CDFimSFpH0Vi KJYmVF0kbzy8PZK2XKqmSZ VtQwH8PMIppWSfPNQvvGtu WSbnf196LYP7GjGvUYXktc GrjGesjT2sDsFzBPY4RJKz NVgzXHBhcn0= CLINICAL HISTORY (test k9ljrOXsUUAuqSL9MnWyPB code = 3356) Rnw3tkt3LkjJAdhHXlLWom jWQbatEepa78kHW7mD44DG 7rOAWvHbZ8IRFowaX8Sza5 PBEwUAThiYDdA408d6hwj9 ocbtBuiMJ2hPoxIFJemhsn XuU2OCnwEXRtsdbcXWr0GU ubHWLqxRT2WAYvzZXfJ9Dt FBQzRD2cqoo4ZFQ4REsoCQ IiDcJ1XXHebHMmPHFxsVzx DQxgv131JGW2WdTeDTShoi DkoKrrxN3qWgCdAQIQILR3 yi8pz84fjKFpHFUlRFOiEi y8vALloBWpLFDpPSUde1x1 gNQlXnFxa7qvyttbLOP7 SPECIMEN SOURCE (test k3pzrBLqJJCfeCD0IxMwJQ code = 3377) Jrt1iny8UsqIAnzXEwSCys aWTyitUjpw49gXR6bV64BQ 6oSINbHkX7UCHuuaA8Den9 YTTsFJQhwHKkQ689v5ghv1 pfboJtwRP4qPytEXZnpbkz FvV4VSwfJVKnewefADx9IB hhYLIzqXA9DLCwwSXgG1Nd KOTsTP2toer2WUL5XKmuCF NqXbB1DAJvdYVpWYWxoIda GJhab362YIR3XiLfQYNfkd AthGmyxH7cRfXwVXSHNbDx OM0axTDqTVXtgH4ePCGhQ9 k9W6UwV1MrMStbO3fcvY2i OMHaRPCHy1j1hNrrE18oi5 2fe1txzE1mQZilxS9qZYBh PHRHuV1rr3kpHUyia8DfoB MsIHJhbmRvbVxwYXJ9 GROSS DESCRIPTION (test i4snoETrWIAfpYHzOdFnNW code = 3366) XyNIGdo1cjBSZphSEhOaXh MzNcZnRuYmpcdWMxXGRlZm Ecg8ctc516dWSgl2ckQOZI olesgNr1i0adJTJwHkS2uX YkWTibP3jcmhXerLSoQUPj CBh9aF66GKJyjR5lbTQiGO nlxyLsMvX1KPkrCLTvAxN7 ULTbvGJmTEUsB9bzDLQgNB vnMTXgGPdxpEBcUXS4aNtv h4T7cWApeOPyyHrsBcGsIb ReESZJt5WuWUq5iYjyK0Wd THNgUdR8sNBhQYKtXUhcKH OrFUNgooR2tS12XMkgzaZ6 bUWfs3Bqx98mn624lX6dkV BiXJG0BAKuSTYbzRAbPXGz WJF4GVXmdKAnZ9i6DyDrfE EuT5B6VwYrdIQeS3I4FgYy xOEdR7I8ZoEshWNvJSAjxV CxHg1qvAQmjJOuvl4fmr43 QQF0f0HxwAeaGZD6JZO3Yx ShLb2geGGhESRbVRBhhNOh IAKbIF4ivPUbXZZjuG8vxt xjXHBnYnJkcmhlYWRccGdi gaZkSv0apAscOEF8AYkkC4 uuzS3lXxM6FWrbK3njaM4g BTg2QZbswJR8XMLxkH0cKY 7vukdde6meUmKzCG8lzzuq d2xjRvIhPX3fawu5r8muPp ZaNK2nzgkbk3wpTuKnVHbl XWEnzhtgJKElb7TebtysBT Drz4BvS1RtpQpbB39vmQtj U80eXAJesRlyyZ5dhOdngE 5cZjBcZnMyNFxwYXJkXHBs YWluXGYxXGZzMjBcbGFuZz EwMzNcaGljaFxmMVxkYmNo LUUcSHivG2dnZoIeNsFiIV BBLiBSZWNlaXZlZCBpbiBm n9IcJMmoyrGcHMFwwRJtJU dpdGggdGhlIHBhdGllbnRc Z2Z2uvPzLN4tIRSxZSPaU2 JlSSDsI10kOQJrjL9cVBJt XS3jIMVbc3EmesJjjkgnH5 1wg34roE2qmHRxKYPsDMSd q83uiBC2snHeWgJjFHIqMX YnVS4lBUOjxvYju6W2KTNi v9J4PNMiPVZouBLigblmFW 93OEgqKR19ZNliNX9jGAVt QwRFcQFam1JaC6asTG9qfJ Sxu9OvqGq0bULgKRajWFZm kH3txJ6gTGAcBBdfcmSicG luZSBCLiBSZWNlaXZlZCBp mhJhg1YuSHorvbZcQZJujZ VkIHdpdGggdGhlIHBhdGll udOwU0I2ivLaOX7vDDMsUK TaO1CiDBVuW81kSYOqjU2c GTDoAV3tIFYvbDaab3rsCS UwdC4gOBHngNbpCoWqaaHe W14cp4imiKYdh3NmEkDywR DhCKXqw6UttVWtGITqappn m04flQD1oIPwtDSynrNtR0 tqFgZezkKteQrmSWZvu93i LR82KNwmOJ2yKVrsXE8dDU UwGKWpJQYoORQ3SYHrLcG1 IDAuMiBjbSBhbmQgbWVhc3 SzeT6pUPBsGqX9DIKcBjF5 IXUzSvDntEXmtkWwU9veYO arcDRnUOPvBOJtcYSjsV3d drZdczZbwDDbsBE8ZZGksF 2puT17vmWjiyVEBJ6xoVkc BQrxeI8xIFVhRQVfH1Cxqx LuJDyqHZGshv2rhFxdUWns BoPjOFDvn9p4zVR8wSKsjJ O8yAKxzSulMpWwPY2opPOk NG1qKMbhMTcxsfJdj7AyMF 24yVNwyvMcttQvGqnmj2Yj wWOfHveoAVOjIKHfh32psE W1rbSgFqY8GSLtWVAtidJv CkS9WN0sgRocquYmk9Z7RM Dky4E7GRNzYP0yjW3oPFju IHNpemUgZnJvbSAwLjMgeC IsWuFlyLFvAbOaO98oyT0x XT47HOnhAS8lJZizEW5kIQ NtIGFuZCBtZWFzdXJpbmcg UH6oGCteYT32QFtiHB2xXI CuHNurSKKjH7NdS9S9HD4p VGhlIHNwZWNpbWVuIGlzIH I9Zp5rjRVxBFGahqE1s1Vy ZMxcVMHmNfljqM6eRLjuhm IeK1aHRIHyxu3= MICROSCOPIC DESCRIPTION q6fvzPEfRJSraRE7RyEfEG (test code = 3371) Pgw0rui6LlzBMtoFTfYJdj gQZfjqDadq84vXB1hJ11TC 5lQBKzHxF9CNYjldM9Uvv8 XGQaOMAuiRKjT570x2uuf3 pslyWsbQQ2qHraAARogccp FaD7WNtlKYJjrpthMPf5KO osAJItmTT6VHJxpUXvK1Nt DDUkUN3tzcv3XED7WOevIK YlMeX6JGCixMLiAHBslVpt YRbib736LCS9MrJjEHVuuh GpyDesfU6kDmKdBUOYXZXp XA6oGPsxT7fiU7UsGXHvPG eloYzgb1huAY8yHX7fvFaj elVcT5xcrTYkkTIgzlVwAt ynKH8iDTNutzxtFOIvCp7v Kr9dm9ceexlxnPSuutHudJ 9coMKnnXG1hW8tMQWsklHr n8WdalHoPS6ylOVubFObfX MzFVH0k2RkOPHrGMSwogNx DWoxL64fuvD1TEjkZYAyMJ 7cYC7vONkvwOtkw7FpK1Jf toPfuVQux65dA0CqoXGcmi MkdiMzc6ZpchRejjCqt4Z4 yW1jGGP4KCdrwl6pDNerHE J9 [facility] [id number] 18:24:44 Test Item Value Reference Range Interpretation Comments Case Report (test code Surgical Pathology = 104) Report Case: [id number] Authorizing Provider: Dewayne Wise MD Collected: 01/09/2022 11:31 AM Ordering Location: [facility] Endoscopy Received: 01/09/2022 03:51 PM Services Pathologist: Evelin Wharton MD Specimens: A) - Polyp, Colon - Right/Ascending, ascending colon polyp B) - Polyp, Colon - Sigmoid, sigmoid polyp C) - Biopsy, Gastric, random gastric bx DIAGNOSIS (test code = [id number] 3220) FuZzEwMzNcZnRuYmpcdWMx IHtccnRmMVxlcGljOTYwMV xdvxYeZAPftZDpA0Gvmijy UBjaKF5gAP3hpQkaxORuzH LiAQUrTbEqh9xjw236rRAc q8xoTVYNncukoBk7xNugE1 5ex2P3DvzsI66xiIPkIDX1 KVIzGFVcjYWwWWJkYGK1ER ChlMJfN2uaTCAeTP5omzhs DOihOBzdEVEoiRM2NUGgtV YcU2CfVJYfHVfdYKYjqjq7 UmMaEz0ogVEdyWeyUQesQO PqABTvFIgzCIUwVyStVG3a U61XO45mPGJTX4nUX4DWY5 FGIMzSSkqxRQ0WIENPB5YN ROp7ZMYpybo3DWTdGYAGCR JHHMGMRZPJNP9HEXVdqBZn WZKcazFLHoOHN9kHCcwtF9 vVNH5VFDytFW8BEHHSH6EC EXm5CBNxzjq8TSZqPIDCLL MNIPPOQHQILS4NKKOrHANa qhrcETKoTj6vA5MBPMKQKV yaC8eFWOWKJ2CxO3SQJ1hU QCLUBCLGQG2KX0latAOmUG RhYiAtIFJFQUNUSVZFIEdB E8YHI3ABQHqBQSYlxtg5QB BhIDXKQDwVKNhHPK6QQ94B SLRPWBLNXQ5LFGMANQnHXP 9HSUMgQUxURVJBVElPTlxw YUJhkOZbQJ5iJxXNKQBSBk UcXv4HFRdRNWvRJ1HJQ6OW CqEZYVHHJ02IQ6RMHVPQIh HLBzZWU9OMER4EVDVDXKhO A6sgSBW0k9tbzHYsXRBlfD UxODAwMFxhbnNpXGRlZmxh hjdcRMZxVOJ8dvSvOHAbCB msEGXoGMpfAv4qtDZdfJwp DiQhPGWtt9aamjNJfkvlwE k4o8khKVZbMwO8jINkLBft S0tvmdJatGXvHZHnGLe4rI 71PKTtzP8uaRHbQSyzkyAn NuO8HGunRCXeLgD2BTSpyZ RrCSIdC7gjCBCrLLleWGIj BLitxEAwWFS6eYoyh3G2hV VzaGVldHtcZjBcZnMyMiBO s0KlZEc6jDscC5OeRUGhXi K4wUSiUENzQIwpQAHhQAYf irS1uR71AJtwptM1oNOfv5 Lsb42dt615kH5ylNEvNNE2 AFPwYRZzgCTeGJVkFPW3FW PezUAqX0kzADEeYY1gfddt PCdmCXrfTHPeuAC9RYWopR NfW3UaINBzSXbdROPnzpk0 NqInZj1qqGDdpWnbOHywy4 ewo0xcnRDnEit6ZGLrOqZy SfiuHVtms1Yum8axJWTlyb 5aQQK6vQNoxPtmv1R5zYNe QGNbtDLgFVQaJC9deEQtFJ JbjO8gpkkjEURpYoTyocvb BFTleOdkynChFv5ukAmmDA J2ZBiwN1zljJ8zBrB0EIxr K4vyeS3fKCy9URpuAPMrbS P5rrD0QWQxoVYkD6OkbH0x FAMmYQ9kkam9l8fkJOY5JE mvHBYnReU1xcD0LVHixLOk IMMvjKehHWpci366SLF4Nf TiZEPuk4NlG6TixIkeO28d eUowH08wFPNzaBirfD4xkA sgjY0aOkNzAbVcUMjfuDvz RQ0cUSUuZ5idvTLtVRPfBO WyJ3cqQrOvoZ1tvOunGOgq daGyLEOcHpq3NDPzdMPjGG MeBea9GJZnVSOzU06uydjt VFD7pT1rj7fzm4EjIMkkGX Q6RDZrc79rVJyelwQ7ZFmp Jx03OZyrFUN1WZqdROP1xA == CPT Code(s) (test code m0ecnQDcMEBevEI9KeSwNE = 3357) Cdo3saw9VvtIHomUIgQYbs gZChccDchg36hEP8wF98UX 3rWTHoZfW3EZLxwmP1Mpj2 MFHjXQNptGXhW669p0rcc4 raawQmuUH3mXwvFDZvrdex GeS1BTgjXAFzfhjjNTi4FT vrZESrdES9GIAikJQlW1Wi KEIrJU2mbem4HIE3ITvoVN YrAqJ1OVZrhJPxMXCavLoe IQded757FFL2VuPoBCOuky WlpJtwiW1gLuQrOEW4AYKb NVgzXHBhcn0= CLINICAL HISTORY (test c1nfbGFqHEBvkIU2DyDmAB code = 3356) Bua0fds6UqyAPmsWLqHAuj cMLewvNzjt02eBJ1tW88JR 3rVTEiHoC6IWErjiE4Cmm9 TWLeRMGfkVVcO302o8gwp6 xrurYurST8dNocVAHicbkg IhS7JXbgQNHrndkjKVp3CJ wlDPOogMW2JTTbyHNaT1Hh KYRsAC7jmjs3SDB2DImxDC XaJeN5OBGvgGDaSBJdeEjm JOauh856CAQ5VaNtEWTsbw OieUhyiU6oQwBqYIPWSOM1 dv0ik64mbERiIJUkCIIlRu g1bETudEJvWVSfTYTgg0v9 lSStDuFbo4sddilsLFM1 SPECIMEN SOURCE (test l5iocDEnMFDvzNX1QeFsLH code = 3377) Kwq8jwf2XduCLmyXTdBYdo kKLvumQvjy92dIO1cS09KI 2iJHCfGqA3ZHDafsV6Hzc8 STHhQLNzzVBcQ422z9iey7 hoxdGjrUW7oOhaXOOjzdcj SoX4QBzgIDFfyrdeTWp3YZ ucRKGxzZV6YYOlnBZxF5Ah EHCeGQ3mgen8PPW1CZakFY AlFtA4UZDhlTIeIDPcaDgi AMhpw434AZR8IsEhDCDtzv VptWolnR8aXoElDRWWXmYa XX4hxQMrOTYxfS6aYHYwO8 d8N4CnM0JrJTxwK3prcX4c VEQoWPHAg0a5nLcrQ02kp2 8ei5sfwG8aKUbtbP1jNGJr QVQIvK7wt8tkUGlds2CyqK MsIHJhbmRvbVxwYXJ9 GROSS DESCRIPTION (test x2fmjGEzGSNxqHJqTbFdES code = 3366) AwQXRdi3jaILSwsARtOeDv MzNcZnRuYmpcdWMxXGRlZm Egg0dbz821cMNcn9flBMZL veszsKf8w3ovRPPhNlN6cR RiIEevH0mebvMhrFHzUYGy WIl6jH81KLPnwY9nyDMbBY yjotVyHeV1ZHrlMTEdMlX1 NUFwdBVhYZLiG6zqILOwDE qoZZNsQTqtyPNuPQP7eCby m1G7lXGzfYBwtJzlYrLkVq ZhSHQLz3CpFXj1eQxmJ8Nf PNCwDsL6nKYdJEToYDwvFC AwNRKkjoQ9rP36HDpwwqQ4 yGAgf2Wvm00ax985oK2fgE ZtZVP2JWOeGIHpxFEdTNEt YOK7CMBquRCuV5n1YvFvgN BcX0C2AeIcxVHuK4E0ApIl uQLlP4U7BdHwmYJwWMWzfK VuEp5awOMqyVAufp6ade78 TSG2u5WovZppERN6PJY9Sw RwAp5wdBAiMNElNQFluPZy GQZaER8vlMXoEZCpcV9lms xjXHBnYnJkcmhlYWRccGdi tlNeTc0mdEyjOKJ8EPbcJ3 aabF7jRxT8TYthS2udjW3t GQx5ZMnzyCW3OWRnuE2rRX 0xsfwvv2rvQsUeTK7hsjaf w8llEwJgZS5nghi8i0muYq PvOL0qbztjp3zdTyXsQSiy YZNnovivAEHbu8IamndnUM Msi0TbU1OzeTqjS50zyLst V59fKBFlySxzuL2elYqcaS 5cZjBcZnMyNFxwYXJkXHBs YWluXGYxXGZzMjBcbGFuZz EwMzNcaGljaFxmMVxkYmNo RRRlWMqhT5xrIjJyGsFsTG BBLiBSZWNlaXZlZCBpbiBm o0QqTZbuccRiGELyqJUfBI dpdGggdGhlIHBhdGllbnRc Z4O7giJgRO5dDSLbASRaM2 BdUJTwS52pGTKbiB0sULPh TW6hMDJcv9CphhWyjocfJ8 7wp67uxX0bzTVkACZmGLAc g54efAG5riCtLvGwUTIxTN TtKC8kYNDbgkZtq7E9UNOk u7R2JJEwQKWstGJiwgtqHH 17XRfzDM67HUvxTJ2lMVKr KkBJgMRcf0SzY5hjKH0xwJ Nos6ZnlKh4nZZiAHqmNVZo rG3qqB1pEMGqGKxpzaRntZ luZSBCLiBSZWNlaXZlZCBp btCet4ClIGfunwXnODCbzK VkIHdpdGggdGhlIHBhdGll guXmX9D6zvGvBM4vQFTbJC DeS9OxGZXnR05aAUKqkK2s WHVcMF7lYRCbyMmay6bnXU IumX1wCWVmlZflRgRdhzCu S33yh6xpcGCiv7CgWfXoqP SiZBQlh7ErxHSvPARdidaq g46hyNB4vADpjNYbxkXwE0 tcOrYnprXwkAkvQIYrz48q HX28DKphVZ9xUKcmWZ0jNW EsNZFvDMQrGPW3QPQoYvA5 IDAuMiBjbSBhbmQgbWVhc3 OtkK4yKWDhJuK3NGSzQiN8 DIKmBaCioTNgeuQrD9enBD lydGGrIGFxNBCzeGNbcJ0n ewJgtaEpiWTguAW8WQWapA 2heC39jgYoayJPAP9bvQlf WPxtnF8wJOVkZVDnG9Fgpb HfVLbwNOKfgw7jnAjfIVov GyOjTTDxx9x5gZF7fWSfvM R4yFRgsUsfQsGfLT6mkDBn GK2pQNatOUqnpaQhe3QmFS 94aCTojxRzsxIpQulgv6Hu wSBoNkqgMAVoGBIgx26rxC A4gqSdGbB0EDSnBDQfawLq FmW8PA8ofHvzsiDfy5F4CT Gea8A7DBEhIB8gpT4iTQxb IHNpemUgZnJvbSAwLjMgeC JcBpNjcNWvTbCcK99hpS5a UV03MMxeOY6dPMqmYR6rFY NtIGFuZCBtZWFzdXJpbmcg AG7mOEvkJG58HWedBL8pOA LhPHkjAYGlL9MxA9M1FG8d VGhlIHNwZWNpbWVuIGlzIH L9Ob5tiDTxCXPjqhF4z1Ip KNlzQQEnUupcfT1rXCpaxp XoV8hTRPAxcz1= MICROSCOPIC DESCRIPTION t3awjKRwKFEqjQT6GdVrJL (test code = 3371) Spv8lhs5YgqCJjxALvNTdp tJIjzvHvic77lDB4jQ77XW 3jUNBtJiC1KLGlvvL2Vxi0 GQXdXEWykZKwJ123j0apk0 dlwdBubPR8xNjhPRMfzoce DaP3UEycVSRbnuouWNr9AY lxWPDngQQ1PEVhdUUdC0Bu BFWuFT5tnbu0QFL9DIbcXD KfEaA0OUOyyQImPRNpoHdl MWdpr553HJY0NjUcEHNegj WklXelqV1xNqIgPEPGXQXa ZW5wYIfqS5viG7SwHDYrRI pkwRknx1rjNF6nCV4ypJdu rfTqS6yxqDJfoSHoazXjQa ndTB6kMOXhpowwEJFgGn9w Gy8xs9xbjbgvjOSzfmLyyF 7ezRSqiKX2vM5bQEMmovDd j4BiguUlKW6bpPKhaBZklM NwDCO3l3RjOLJvAHHekeJr ISacS48igzY6YSsjPSEwAU 5hKA5sSKzwtKlsa6NcU0Xz hiKinHSef04yW4NqmHPdml FbzgIbv5MbkkFdpcEsv0F5 xA3rLHN8YBnriy3jOVazPC [id number]24:44 Test Item Value Reference Range Interpretation Comments Case Report (test code Surgical Pathology = 104) Report Case: [id number] Authorizing Provider: Dewayne Wise MD Collected: 01/09/2022 11:31 AM Ordering Location: [facility] Endoscopy Received: 01/09/2022 03:51 PM Services Pathologist: Evelin Wharton MD Specimens: A) - Polyp, Colon - Right/Ascending, ascending colon polyp B) - Polyp, Colon - Sigmoid, sigmoid polyp C) - Biopsy, Gastric, random gastric bx DIAGNOSIS (test code = [id number] 3220) FuZzEwMzNcZnRuYmpcdWMx IHtccnRmMVxlcGljOTYwMV unrgJvZNZkfZLpN7Ydgsbc TQsgJU4eEP6hoYwymQMifP FgKNGuEjBrb5wnv526oFQo w3sfVPMGajxedMl8aAyiN7 3ua1C7BqyqT88xhIOoSSO7 DNWgHOSllADqCJFhXFA7YW LxlUHiP5ikVQJcRJ9iffai JVyoRVycCCEvoIU9VREldR XsJ7CmFZBhYAkoBUVwhjb6 YrKiJs7ilGRgzEceBXxnBH NzUMWrTZyyHDDpBdJkWS3a C01GX35cRBMQX8oYW7EBL8 XJWKiIWvjuJI9WUYIME4RF XPk4PZCcntc2OABsIKXJKT JVOBGOJKKLVY3OURGiyFHm HYUvkmPDQgEOU0aVGmpkG8 pZEM4ZQGtjLK6ELTXFY8KJ KFz1SDQtsrw1NZAiUUSGJF XHMBFXOEXNVV8KRBSoHMOp omkyDKFaFl7iZ7QLTYDEGT npA1sQKQWQF4UwY8ORC7fE KASPCNPVMU5CQ1cyuEAyYC RhYiAtIFJFQUNUSVZFIEdB F1RRU2GTEPiMSQDbkoz5SH TxDISCQRxECZfXMV0FQ60I IPFQOKKLFX1FBYVLJMpBNX 9HSUMgQUxURVJBVElPTlxw UUPnpOYcIH3vKfKQWYFOZz LoRn3BOIfLWIjKS5LYZ5VE BgLCLLJXO99XM7GWDOIMBt GMRcAEV0UAGF9RIMXVYNuK R3rvCNP6d0zogPAnEMGhxN UxODAwMFxhbnNpXGRlZmxh fzymEMLdQCC7tvKqHLZlSV hbBTLuLPhpKj9jgEFxwQfv FrLlOVSjc6iqcuZQhshcwC e4c7bbRBHmEmU7tWUgMSlv G2pxzvXotWXfICNrPKp0sS 72EQKcxO3usOMlRNlfieBa RgM6HVuoDETtBzO8HQVylU BkPJWpT8uoEUJxRHxtVNXh UCiuhIEqGVU1pZqij4N4pV VzaGVldHtcZjBcZnMyMiBO j3ZmXKf2fWaeD0BdXIGkOi N4jWUkRWWyXMvtWJBdZQWj bkV9hX80CZapubL0uHFlj5 Cto55zz137mC3vrEVoOZV0 MBBtTWIscYBsZXJfCMM8SJ IsaQIdZ1orGROhBR7pqnda FLhdYPovHEDeiDV1TEVavD ZsU9HgDXOvKXvgFIJekgc3 LfPeWu2juOTvcAkrRTscg9 qkl8ncrPZqVju2TIOxUsUg WjxpWEdxb0Wsx6utRYSugz 4eWGO9kNFjhQfxm0Z6gBKv IOLkgPFtDSMqFQ8yqRXpAR CahX4vntjeZLYgEpYtyafs SHRldXdippPbQi5csIpgYU I8GHnwI4sssF0kGwT8SQtn U2lllZ5lGNz1QXmdRQZgiA N3fxC4QFHctQTiC8QsnH5w AFHnSJ3xenf7f0wbLJI3TW ugOLQrAwT8gmU7UNYoxPFh OYXhwHrhHLyoi279ZHI8Xe PsPAPcj6MwQ8ZbeNdiY65x sBmbK10bMWYejYmgdD7zfD qxxO1bGbGxRuZcFRzwrWys ED7qOBTmD5xjjUFzIVUlWE EbP0miKoGhbA1uoLucARwu qyXjGGQqPzt0PAUtvVQjTY KwQjq6KYAyTGSnT65bzkhe LWK1gW3oz8pgg1UzKHeuXT Y0VMAqs11vXMmfsmI5YGro Fp29AVbcKLF9NLsiZIG6cV == CPT Code(s) (test code s6vkoVDkTYTmwLV8DxTaZE = 3357) Dlj0ioc0UeiTYboTYaKEbb eRZrmlHncx63hNQ1tN76SI 8nIDGrQjF9DFNafpT6Zgb3 JBUhGMVuaFJeU270d0seh3 ccmeFvqDH7qTufAIYtwsnk XrG5EVdxKZJplivfYRx2YL yfTFBzoUN8KCWzgZQrC0Ky PBFnMY9pkph5MOC1YXgeYL RgOwZ1PNStoJIjHYGhqIwh EGwdj735WPF5QlXaYGCycx HqcMddyU6rQzAzYJP3XQMs NVgzXHBhcn0= CLINICAL HISTORY (test t7hnhTWbALTomHY0AxVuOY code = 3356) Dkd7tmt5JeeFKftXBdZJmz bPSgsrTclg32iHD0uC98BV 3kTLRiHxS8UUOkkpR0Lab4 QDWzVTShbIFfI657o1nbm3 mbrvNugKG1cGzzKPVikgtn XbD2EWsiGZJemiqnOWk7BU noMYGetHY9GKFcnEWwP2Nf WVWkKH4phte1RPL8JCpnQT FqSvF3DIQgtCXrKCThpGrt IIazr978OTG8JkJbJSEnme YqcCahbN7kXnSrHHKAISE1 bl7ob17yhFIzAZGgYBLoDa y9xJOawXFhPAMuNLDcm3d9 jPIjShJjk7pvacokKTP0 SPECIMEN SOURCE (test w4kgwUSwQMVopUM3YxRxVS code = 3377) Jxv7ldh7UprFYwdJBeIGxj vGAwcaHeeu13oTO3mJ59WL 6jALKiZiG2KYEeeqF5Ier4 FGHuBABdtZThW391l7byn7 onuyCrzSU0bHufUUBtsbyg GwS7YVtjVFErwmptMEq0OJ urUYGvnCF2HPNtbGJpY6Vb AKIbME3wvog8BIG1CCrmWO NpOaQ3MDUrmZCsFMVtpQty HDmlu882EBA2QwTtWBEctx GnsFxbrM0oLaWfDGLXTiIm PM0beHJiWBWucH4nYEXjR9 v2S9PbD5BjTLdhA6yfcX2j FHBaTQIHj5y9fXokK02ar2 3mb6chbX9yAAckxA7cXEQn GYHUsY7rj1hpIFarn4SiaW MsIHJhbmRvbVxwYXJ9 GROSS DESCRIPTION (test l0hymHWkWPXjsFSxWsLxGR code = 3366) GqLFBqp6suBQFjtZDtSaHj MzNcZnRuYmpcdWMxXGRlZm Oxw0glw690zVLlp2otSIGH jefpvKu3n5cjUWAlUdC0rV UnNDgqR6vnvlAmtKEkLJWv NVz2kH06DVPffD6smIKaKM lfwfXmHxB2OQwxOBBoMyQ8 HBSbmTPeGQBiX9ysBZUaHY wuXVLgZCarhFMcWIQ6vQxt d5R9aQYhrDFtwYtiHkAgWr CcOKNTc6JgIUg6tOtdM6Dy RDUlFaR2eXElLHObXYjaNV AuEYLlfdF2fN75LWkayvE5 lXRdx5Uhv55ot334pB9kyE BuPYQ5WXZkNHLdjFPkXECn FHQ9OESdvLInJ7x2XdXzbF TxI1M3XmAfwXUqH2S1QgEl vZRtC9G4TjWwtOVqAPIojZ DkXp8niLRjxJZzcu7nad98 GEV0b5GuvUrbGBJ2JUE8Wp UgRk7xhPQrMHBlGXMwuTQs RRHdQA7juICxEQVryA5cco xjXHBnYnJkcmhlYWRccGdi lwDtXp0qgOetNQR5ZWbrK3 jjwF8sZlC8DAomS9rzdZ6s HOu5UVjhoOG3YFXtvR0iKG 5wutwzv8fkQkEuYG2xrker b9rkSaXsJZ0egvq1a3ixWz TsMB2adgtgt6npJjWrQSdr BQRfqogyCHCui6LvfrtvIK Grt7GpL7XmzTcvL79dzOdy S29dYAVcrPnpeT2hoWkkzU 5cZjBcZnMyNFxwYXJkXHBs YWluXGYxXGZzMjBcbGFuZz EwMzNcaGljaFxmMVxkYmNo ZBSeSPacV1qgWlMgByLcCY BBLiBSZWNlaXZlZCBpbiBm w8XbSUxiqjOyJNSeyBPeAK dpdGggdGhlIHBhdGllbnRc Z9I5uvRqHT1cRYHcEBQfZ5 DsEHPdQ20uPDRxhX8uFXMw PL7sQKWhz1ZbzpYltnguZ8 4kz91ppB1roIZgPCUpNIJl j06lxTR8ctKeYbTwQODvVV XySW4yAZZjixTqj8O3OKYk v0K3RQMlLDLuiPKlrpctTJ 17PIzcNP59RJmiCQ8jFBRp RxTEcWTlp5QnB4arHL3jqK Lqe3BzgYo2qSIbXXizQMUu iC6snI4mJIRwPRescePkzG luZSBCLiBSZWNlaXZlZCBp zeAcp6WfPLysnuQrATIkxS VkIHdpdGggdGhlIHBhdGll zuBdC5Y5clLoCP1zPMDrYD OdQ5AdLQVsK79xLRKxkV9u BBPcNJ3sQFWuvZcpk8lnHH UctF0qYIVbvDxlQxAevxXm W11mh1qraCIus4RgZhJqcM PfRZTcg3IbuDEaZOAtqpby o26slOK3qBVddLMduwIoH0 npKdHetjUicTqgEFPoi28d IK66AInjLZ6uMKyaAJ0iQZ LxEADdAOQyXKB8PFIlVzJ6 IDAuMiBjbSBhbmQgbWVhc3 UkpW9nHNLbOmZ9UWWmRuF7 KBVnLzDxxOWlemRjB9itGI xryTRiONZrXSVlhUDqjI0i kyMxreFxpZFtaEP9TJZpyN 8uaW33ytMsxhJDOS4cgLzg CFavsQ4hRDAgDVGiH7Cili QjAGllQJGvgo2mmLcrWNcb YwNwTZKwh2e7jMV5kXBheX Y6yPRdlIwvRhJvKF3ujXVm GV1cFHlzSHnwciJyj8ZlLT 39aGRuplTkyrOcQolmn1Yl nVEyLtrwMOUdOGRux23ptD Y4qcYxHwP7HQGbCFIuipRe JiB6SN1cpOewjyQfk4I4BI Xmq7U4AJXwGY8vrF1eTObf IHNpemUgZnJvbSAwLjMgeC SbBaTlyZKoFyKhG26nrI0x KB24DGeqSE3jPHncCQ0wHX NtIGFuZCBtZWFzdXJpbmcg RS2dQCtdCC27XLsoWH8zKD BrYNnrWTSmC6BaF8X0BQ9m VGhlIHNwZWNpbWVuIGlzIH F0Ss6ehOAhYSJkhcY8y4La VXreYDEzSsdnfF7iRDtefj ZwB8yBIMVodm6= MICROSCOPIC DESCRIPTION e0dbeWZrTNAbjEZ4LvWpZA (test code = 3371) Reo0dex3JaeVYzrKOlPJca kMAsqpQpkg02pEY1hT19BU 0jGQBbPbQ0PMCpdmZ3Hng3 FYNxIMGduKFpN991p6ceu0 ezfdCuvXK0uTkrDKFpbhra XgS3QPiuAWWqmaknLXn6MQ lbLQUbyLG0FVScbOAnZ7Pa QWGmKC5hztt4ZIO7MXqqIE YsNgZ9DGZceFIpGAMjePzn EUdff468WYW3GbBfMZLvie SfaHqutF1pWuOsRODCDEJt BJ8kAChmO1bfD7OiXMFfZA htiTste1zrGJ7sZL7mnLqu vrZxE0sutUVupAYjvmCyMc iyVY4uGAOazgmqWAOqAw6s Pa3xy9jeknfxpFHjsnWubE 1taKUwwCZ0qC6pVMZkayXs i3FowdVuUU2onKTmaIMtmF RbHPK6a3SzGBBrXKHamrTt CRmrT94liqH8TItlAKZqXL 9lZH2oFUissKfym5CjL6Gy wfGvtEOkz68lB7QruFMteu DacrMfe3HvskRtnzYqa2Y3 yT2qIDV9YZrymf1tJNigVT [facility] [id number] 18:24:44 Test Item Value Reference Range Interpretation Comments Case Report (test code Surgical Pathology = 104) Report Case: [id number] Authorizing Provider: Dewayne Wise MD Collected: 01/09/2022 11:31 AM Ordering Location: [facility] Endoscopy Received: 01/09/2022 03:51 PM Services Pathologist: Evelin Wharton MD Specimens: A) - Polyp, Colon - Right/Ascending, ascending colon polyp B) - Polyp, Colon - Sigmoid, sigmoid polyp C) - Biopsy, Gastric, random gastric bx DIAGNOSIS (test code = [id number] 3220) FuZzEwMzNcZnRuYmpcdWMx IHtccnRmMVxlcGljOTYwMV oxdsXiIELgpKLgP6Dedyfo SUuqWV0lGR7ziVbmkGKfdR IdSAEwFjNpq0kvw067kATz r4lrWTHWoibezQb6aQmyF6 0sf5O1MkynK30kcERvIOL9 GKZsHZBbdCAsWZXcUCG5WV PaqHMdO9baVTPaJC1ifbsk YEcjIMagIEKntLO2OYUdhV GpS3KaSUPhQOcmBCXgcsy7 ZxMfLg1wqJNisGpjTFjtKO ZgDKXbDOmqZAZuIuTjSQ7l N10AT30kJYYZG8lYB9STN5 CPBErWRllwKX2KWGMJB8LW OYs7KPFyozq8MEVsSXMFRF KQBAOPCXQTBB0IHPPzdJSj KGRflqWKMeWVN4dFIihsE7 pDIR3FAMpyNN5SMPJDP3LW EFw9XZNgfgy8BGXyNQBBKR ELZCNAVHWTIN5KEIPiVWLe dzefNNScTd1qP5ELPTTWSF wjO2bSNNJMQ3JfI4ZXV2oJ UYBMXPXRBU8US0mqiEEuAI RhYiAtIFJFQUNUSVZFIEdB Y2JNR4CJHFuEBPOkkar8EM JlTSMIELeVYHbKGC8KS02N DMLRQLOXCA5HSJCWYNdNSV 9HSUMgQUxURVJBVElPTlxw EGAleMPyPZ2hJjHOFHABHh ApNe8MJRrVSYkDH7RCW9RK CrDKNDYJB41VL2CUMZVBYy QFRaXPW4BREX9FHBEAHJbY H1uvXOP9i7ftdJViMUDvkG UxODAwMFxhbnNpXGRlZmxh vcwzYAUkKMR2bfIgQXPxOM ulILNxJHzdMk4ubLArmJoe HhAoOPPkc3ccolKUutfofL l7v5hwCCJjPhM9oHGmQPwd E7qaugSdmRIbVQCnRRt3yG 96PTFkiS4awMUwDQuugmYo CwC4QAjhSPFgXsM4QZLlrL PsTRXjC9abQVGdXJogFECm ZScufEXzECJ8mVhvz8Y9zX VzaGVldHtcZjBcZnMyMiBO m6QrINh8cRvmZ6YgYLIgXy C2oPPdFXIhDKnoUSWjCPPe zgI5bW34DPzinsA5nYTjr2 Olu85ms265wC3maXRfQRF7 TRCgKAYygZFoYPTqELF9CJ RofVLnS0viWGCxPA9vfxwf NIywXIlyHPXaaHH0EKMjcO YkX2FvCJCgIXveRDNkaqb8 SvWfQj3ukNSkpBqjVNyer2 yyo2mxkOTgQvt4XPRwGlXv MtbdAYjhz7Ifu3xjCVFtxi 6zLWV1rQRoqOhjy9A8eQCv BXWfmTOzTRBvVG6gjUOuYW SkpP8rovngFKBgRfOapqda PFZjgLimbuQlMs3wwGkiIM J3BXfrZ3blbU5lBcC9OXyr H8qdyR5uPGs5OTktBMEhhU Z0rmI0XPWeyBStZ6BmzA3d NIIrXN6olhp0h9miYOK4UR ehTQCrQeP4avV7UTHlfXWl JFOqiJkdFBzdc918PQX3Uy YsTDNhu3XcS8EhbKqxZ26v kDndC42qTZLplVyoaN5erS jicQ9hDuFhOdCnWEvzbMoz SW8pIZNbR3zuhNUwTBAlED XnA3deUyGvgD6wyPxjAHod gyUeNZRvEkl5BGTasVLzZH PtRtd6DVEuREHdY50vowvr DRD9uT5tv0spu8BxFAhnRG J7TTWea55pGBnigwE5FPdm Ao66DYkfMMT2MMgyTDI5kM == CPT Code(s) (test code q7ostWDuYJCvzTV9DyQuCF = 3357) Wug3uae6CrwBSgwGGaMVkl mJKrshQdct28pVG5yA97VR 3xKODjQzI2VNUlryT2Rxq4 XWJeBEQnwYLaE114y4phx7 dejdZutSX2yRexIWWlmhdk TbX6OUmuUNIpzedlQWs4GU qkBZLhgEG0PTRopSTkU1Ge NOJaVM1mabx8BFV5JOkvLR AjZrZ0MLUbrVHdEERnoUmk SAudu638OWI9TtVpKZOqiw QgjOsdtE4vXuTbXMN0VZKi NVgzXHBhcn0= CLINICAL HISTORY (test m5hbhARdOJGupWT1LmTgQX code = 3356) Mug4ujz0LgtDVnwBUmLPbd gRLwcgZnpy00cNK3jH72XS 4tLGLqSmO2UGEcmwM8Zel1 UNEyNWLktXGkQ070q5etf3 hqjgCbeDW1kPucXCOfgxqw BiQ4GWjhMZXrxsajTNr0JE evQAIygYM8SFLerZIaA5Qp OMVjTL8veji0NJC9NMutMC CzIvF7OKLdvNEnGIMxkNzc BZzwg400VBP1YxAsEOLgzg XjcTsgfX8aYbXmMERBRXO1 qk8md50dgROxCHWmUGZfTr t5vXJftNUcRORvFUZtu0j8 kVPcScErm9yujouuAWX7 SPECIMEN SOURCE (test d6tuyKXcIIGnjSG4DoJnVX code = 3377) Cad3gao1GecNPpbSWsKHsk zKRcfkZagl68rMN8iZ19XO 1xNCFxEkM0TEMlxjR4Xxp8 WZKmHNPmhPCiQ144j3mkc4 fovwIndWS6nAipPHFgmapk ObQ8PKjxGCWghjkgBBy2UV oeISKliKG7RSJfgTObA2Lf IZVhUC7jxfz1RWQ1UVbaNS AfGcE0YIOxfYYsGEMjhLsn XBzim443PHN5BvSlGAOczg NooBurbK1uZaLqOUGPFmIh RI0bsPSqTTAcgO8pAIVaW9 y2T6AsK6BaNRsqO9osjH6q LHToEQFMs1e4kVcmS05wo5 9ni2uabV8cYPfpxV9cFSEs ROFUpJ7ue6ktOJywn6AquO MsIHJhbmRvbVxwYXJ9 GROSS DESCRIPTION (test k3cxbHYmLJBgeJIkUqXkPV code = 3366) EwSTLli3jeRBJxgTGxOwUs MzNcZnRuYmpcdWMxXGRlZm Bjs9qfu368qLNfr7fdXFWC sshniBi4x6eqYGFqDkV1hD HtTEliW2evwzDwvJWcPFSe VZx5bO30OCEezB7soGXuPV wvthDtCmT4WPqzQRHiRvY9 RJPyrIDfMYSbU6nlSGMlIL cdCCXtFWoqmELmEFW5zBlv b2W1dXXbbJMwkYzpQuCwVa JzDYWOz9OvZYb3pFhtW5Wm XERsGiD4mLXmWFIgLWjmBR CaRWPymsY2bI19ZEtzoeR8 hYIup9Lyd22ye554fM8acQ JuLHP6OJIdZGJvsDGmMIPb QHS7NUVdoFXyB2z9BaHraG InE4Q3BuJykKFbX5I8PfRz cGRgV8L2EvEigDVhYWYmdP BjHy9epHNnqFLijr0dsa65 PSU4g8KyaUwtLGV8DLF8Pt LaZz3leUUiRJBqHUSekGQs VWFtNJ7zmTPuJPPduM6ape xjXHBnYnJkcmhlYWRccGdi dzTzHj8olYkyUNU1GMvkI6 qlfL6pVcC3HUkcP0iupT7a WSu2SVogwUR3LJSbgX8dDB 9zjkskn7koKkLxJY4hktkn s3gaWdIlBW1sevk8n3jkQg QhMM9sysefe2qeVdNzWVqw AGCkymekHLVum1OyqtvaCM Iug3MeB3WifDcbT09avHsi Q13bMVVuiNyjaM8dtDstjU 5cZjBcZnMyNFxwYXJkXHBs YWluXGYxXGZzMjBcbGFuZz EwMzNcaGljaFxmMVxkYmNo RLJeFTtjV9ymVhAxDzVdPS BBLiBSZWNlaXZlZCBpbiBm h2MjQUivrgUjCPAykCSdVI dpdGggdGhlIHBhdGllbnRc S4U2yxAjQZ3pAYCnNAWeA6 KwEPKiH47kZEIyxO6aDSNw JY0mRGZsw2VufzZwdnveD4 9di22zeH5gjDQfPNThSVLz y83ogUV7bmMdJtGcCLYgCA OiXH8kAEHtpvOto1P2IJDu d6B5PCEzPLFmvMIxgesjQB 97JKybHO20RGzxED4qNPNm FmNBvDPsf8EqY7nlZC2hxL Yfl9NbkSk0yAJdXLspIHGn rB8urY1xCAEdVNecjvRffL luZSBCLiBSZWNlaXZlZCBp flOqz5DlGGptgeUkFWVkzD VkIHdpdGggdGhlIHBhdGll hkTvZ1S7onOdGU5aEHDbUC YbJ2VmRSQhR58cUKKtdF8h XEDxON0iSWVfuUmyi6tpUH XhqD1pHITgnAbpRtLaauLs G53bf7qqoSDoz4AzJvCxiH BqMSZdo9YniKTcFAOsetxg h19ybVC1eZRlvMUjcdYuU5 seIbCpqpSvzMlcCINry34e GA91ONcbWD5tZMmvKQ0xGD UnUTHkYXAuWDI4YZZdTcT6 IDAuMiBjbSBhbmQgbWVhc3 JqpW7uRVAhUqS9MBXnNuE2 STFiPcRmzEFjuqQuP9fmCC qayUBoBMSqNCSjaHWhmT7k scDazuOdfSAogRM3RNOgzD 8ivP22ecRhoeWZIB2fhJip QYaomW5sYJFmOOZsR2Zwou GzKPbvCYSvwr4lwEwcTGhy SoArNIHlg7y8dUO3aACmeZ U2cZIrjGpxGuDwPN7pvAHj IV3cRKmpHGdgeeWit6VzPM 38nUIaawXwvbYgMziqh7Dx uUOyTdbiBUAbNFWhz99nwI R6muDhZyN9OMVbJKRfbxNk DqD2BL0piRgnowGfn1W4GL Vol2P8PNOcDI6ntE9bERwe IHNpemUgZnJvbSAwLjMgeC MtKbSxeSZkCwEeO30meL8o QK02GXyxJA3sCVggLP3nIH NtIGFuZCBtZWFzdXJpbmcg SK9dPXinUH09BOmqDE6nWT UaUMhoUIQdB6SuP0N8ST1w VGhlIHNwZWNpbWVuIGlzIH P3Gh9lzKWfUIPqgrN4h5Kz QTtdSMEyFrpdaY8gXMzugu AnA5fEOSWfth6= MICROSCOPIC DESCRIPTION f2naqJHfDIPsmTO8BqExLZ (test code = 3371) Zdg7wzc7XezDSldGAwKFew pVUhmxClqq20sEA5xM05VT 9iHAXsWfN9BQPnasY3Hov2 ZZCmVDWeiSGqY419x3syl1 gleuYmoYZ9pTxrLHOkwvlx DeX8SKuiHCNtrcteAGk0JD weBZVllWV8PRWebRVjJ7Ru BVPsUP1rzkp6RMM6VUydYE CeNiI7FINucSNhKBUfrRen LBmrz793QXG7XnTbBICuxe ZpkXhylJ0hRzRmGFKVFDGn IP6jNYkxG1zvB8QkDYIqRF mnhCpge7kcMM1mMA3elXsc csNbA3kzpOUxrYYakjDnXz ioBG8jZSQblsghPJPdTv3p Ab1it5fxlaxddLAydyQjaU 1qzAQxpBU0iD5qRMCeqaEs s6CwrySlAQ9ccOHtoHSlkN GiSLF3w7SsSRMxUFAwzsMh BPavG49sjtW9GYzuGFDmMM 1cMR6mEGiciRtbh8TnN6Yp erJdiECnt27pJ1RrmVZjac FwdsKoh6XkhnTnppFmb9N8 uD6lUDF9RFufor6qOKlpEF [address] [id number] 18:24:44 Test Item Value Reference Range Interpretation Comments Case Report (test code Surgical Pathology = 104) Report Case: [id number] Authorizing Provider: Dewayne Wise MD Collected: 01/09/2022 11:31 AM Ordering Location: [facility] Endoscopy Received: 01/09/2022 03:51 PM Services Pathologist: Evelin Wharton MD Specimens: A) - Polyp, Colon - Right/Ascending, ascending colon polyp B) - Polyp, Colon - Sigmoid, sigmoid polyp C) - Biopsy, Gastric, random gastric bx DIAGNOSIS (test code = [id number] 3220) FuZzEwMzNcZnRuYmpcdWMx IHtccnRmMVxlcGljOTYwMV fqalSuBWGifSBmP6Hmvnpv XMxqQK3mFM6jfXtpmEUnvZ LrISFpPpJpt3jez981sCCj e7btQAXVaiulkBg1qMpyT0 7fr8F2InyoF88ptXHgDRL2 FQJuVVOzfSYpUFWmSAQ9EQ QxeMAaC4feXQOaNF8rztmp ZJllQKkuQHOlhJP4JZOubU TjT5HyELNjHRzoUOQcfhr8 BoOsJg2wfMEhtDwxNDubWQ PgVTRcUNjaFWYbFdPtYJ0e J44ML27dSGRCH3eIF1MHG0 KIJNaTQsrhYL5KLPKHP8KO FYn7WYEukib7OVJkPYJNXM EGORLHXTSSHZ5XZKDddYMm QTNialMKYeDUL4qCNlfyO4 fOFJ3NKPwjXQ0BOVOIN5VC PKh9UDJdctx4BNNeVOVZNP RLZLMCEEUPBG6IFYMqLCAm rzirQHYpBi4sH6HRYBZXEK dtX7wTRDRBU5LmY0HGR9yA OMXZXXBUJH2WA6xpwADgBL RhYiAtIFJFQUNUSVZFIEdB V9WMW4VCZJiCBTOeaat1RT UrPASJNTrRSWmVBM2IF53K OUOASBEEHP6UJSKKRIgQWX 9HSUMgQUxURVJBVElPTlxw KWIucPQlSV6zIpMFMPVICe JlRz0QKFpFHUeGQ0CBH8SH ZkTFQSJDL05YF4VFGHCXYc XQBgXZK7TPKF9TUUTJDHvL N9yoUSL2u6yfvBUnKUNogT UxODAwMFxhbnNpXGRlZmxh ctlfHZLaROZ5ynRrALTeNP kfBIZkHYilSn3ubLQknXja BdQrYTKcl8lnemSLygyldE p3h2skIEEmEzL9uZEjMXeb W8rhjfFddCJpMUEvJJc9mG 18QSRhrG2lpMYfGExuzyLc IsF3EHqdCYJdFbA8FZYvxX MeCHHiM3hiUAKpYVciLATw XOenrTIpPVC4zTful4G0zZ VzaGVldHtcZjBcZnMyMiBO i6VhDRm7lBgbP9YfIEJeIg D3aJGgZAEbQGyyBYCoKDJt teD6lU32LUzuyuB5zIYxb0 Hvg52bs942cG6osBKgGKL8 IYSsSYUnhODjZSTwJJT6VI NfeVAyU2acXKLrHS1gdzut DXcsNJsmIOBqdZY1JNNeqT DnS0LzBVOhEZxhBSMyxmr8 AzYqYg6tzNIvsOcmMFyhf9 okr5zxxNLlBtu3EWDiRaBe XdaeLUvth9Nbs0bxMYTvnh 3pECU0qJDmbFhpv8E5mDVh FEXlbCVzIIUxLS8nlGDkGB OxqR3krthmFBKlTsNnocym TANptDmjalMsAj5zeShmHI A0JOxxF8fteW7pRkK0PMvp D2xxqR2lNXq7NTttUFMxhW C0dgR5ICDxqJFuI4QjjG7t IHVaLT8lbal4a8mvCTX5QG bsMFRdLkO8quZ8DVSgfCTb DKLzsDenPSwln258ZLQ8Ho QpQUDmn9WqU2MdyCcuM81u fMfnT86xTUPapGaimB0nlM saeX2nUhAeExEvGZztlVra YH7bQROhX3aldHXcUBFoJD EjP6isHvUlaT4dzNhoBRvj ewZfYJGnPtv6EZNsoNOhAS UtEag6UAPkXGNpC63swotw JPD9wC6bo1sab0CeJUwrDY L7YBGss73oCCklvdL5JOxg Lu76DOgtTKJ0KOyfASZ2rN == CPT Code(s) (test code u7fisCJlQQUgvWL7YnVuMD = 3357) Sct2wew3MjqTYpcUDdMIkb hFGiyiTtgd20xWE5gI82OK 2eBSGbXdF9AZNogzX7Ijc4 AAAsMTFngHPeY668v8twu7 cccwZivHZ7bLjcAILknowj TcH1ZUsaSGGyfpcbJDw3PF gnDVSzrDE7ROGhlFLqY7Oc KPCpVM5whpj1LUO7SUvxFP PiGhA0KLThbFSeTLRdhOkt OEwno576VSM1TxMaONUsfc RubEazpB6pIeYoMJC3HZAl NVgzXHBhcn0= CLINICAL HISTORY (test g0ncuWQxJYIpaXO9FvUbSZ code = 3356) Gjm3wul2RvzCGttBZwAKtj pJLzgaObdt91tIC1cG19EG 0gZNYfKwT5ZGAcfsG4Fas7 CXTfHMMqzSZoG660n8tou9 wuhqPddKZ3xPdbYFOfkhcv PfX8HFdxOFFcjgiiXVf1AI xzHYXrfGV5QXFagFCaM4Kf DYIbDQ2tcbm3YEW1XNvvLU KoUlK0EYNciNSzHAWylAka JRvuo730ARA6YpIoMSSnqx XwmGotmQ3xSkUmKDINRKM3 yo1ue72adQWmLLFaQUCbKf g5uUEuzVQrDSDzIGZyu9t8 cNIzOqVxn2uwxpjvEPJ0 SPECIMEN SOURCE (test f7vidVTsGZKekHY8VfFdHO code = 3377) Hwf2shu9UpfCLjjKWcSPjn sMVcesBvbm51dJY7nP27TR 2vXRClSgP8DHDnoaB3Pez8 DISjUSQcrXFjE072x4mqb9 ngmqAjwEU9jQeqIDJsivcz RhT6NNpfKZZbervvHPl6JB xoUAEihVC8OLXrpFVaW9Dp FDRdNU9tmor4ZWN4TDupJO BzElY4CQCfbJLaHFUggHtr RMlmi567IPM1UgBeMJExms AriUxcxH7qVmGlTBIEWuXe AM8zhNIuBMAeyS3fRUKoE3 m4I8QlV8ZuNFqiL6ooqJ5i DPTcOQXEd8e6gIocR82jw0 8wz4ymuU3gDPxcxH9zPPDz GSGCnL9md4wtOJgzu6ClcO MsIHJhbmRvbVxwYXJ9 GROSS DESCRIPTION (test t7iufCHdSTSghYQcQtNcRK code = 3366) LtTCKku5jvSHPtvOMqYvZu MzNcZnRuYmpcdWMxXGRlZm Toe6foj681bNMvw4pzVLUT uctuwAl4l7tsNQRuJdM2qL ZaMBrpE3dleiEinCOfJHHm UMu7dJ66DQJaxH5bzSMaZN jyiwWiVbE2RUumXGNfAqS8 RXGjwZMaJKYuZ8oeKMNmTH dzEZDdYUowxWTbWVP6mAvm x3I3zIKatBZnqIhjMdNvEd WaXIKFp2SvTKn5mOlgV8Um BLAeQlF9qHFcWZDnXBixEC EeZQFhacO3bA35LSzrdgU2 oJEfh4Bhy85ct652aU5oqP JkEYM0HYWhUOBrrQAvHKRf AUM3NOZfdMAjG1r9IoVyzX GqU8Z6VvQcmHOlY0U1ExXs nIYxH9X2OqCllJPfZCKkpK JtUz6yzRRwrWUxuk6ltt71 YEN5r5QqjEmfYPK1EDS8Ks CmOh5twMYoMAOtFXEmwWOj LYMfEF4akAIgMTHfyT5fod xjXHBnYnJkcmhlYWRccGdi ihEiOx6cyFojJNX3WKveT0 lajP6iOoP0KXrnE4ogiX6w CKy3JGrwmNW4JTBfeH1jQD 6gajrnk5agVvEhPQ5spchf u4jpWpUwRC9ayms9p7yuPg KnMD0wfktjy9skNcCmLXst KTMnbcfxSTTei8ZevmmyAR Mtd2DoF1TmkTpjG15ogNfq C65nJTHeyJmlrL6ofEhchV 5cZjBcZnMyNFxwYXJkXHBs YWluXGYxXGZzMjBcbGFuZz EwMzNcaGljaFxmMVxkYmNo IINsNNupE5cgFuZpMeTlPC BBLiBSZWNlaXZlZCBpbiBm j9LfAIovseGwZUUdbVRzKT dpdGggdGhlIHBhdGllbnRc N1J9fdKlQZ8nVETnAYRuP8 RoZVKdN58nENUuaK9gMZCd MR4uWNBfn3LzumHtlsrcB0 8vu70xhD1kuIUzMGIaDGWj s49jlYF1tnYsLtVqBPAbKN GmCZ6gSYVafyOqh6S6NWLf m5R7YBVlHIJvxDBgdcqvXM 83PDzdJJ80IXzxYB9xZIMi WcIOqLKbd8OgR4goCD5uzT Qta7RhwZh0kFQjOLqeXJJl iZ4cpW6wFXEmOWivupUoqA luZSBCLiBSZWNlaXZlZCBp cgMwe3SrSYqocxAzDHEglV VkIHdpdGggdGhlIHBhdGll ajJyH0M1jyYjRU0pRCIeGV PfO1RgJTOgI27gPGOvxQ3i UVUdIP3bAXWczNjzz1wrEO QetL4sMFAosZbyNyXnvuNn Y67ka3aptFNtq4QbCbOhsF GgEDQol9QebBViZLAtkpps k20tbWA9jHDjkPGtepBpJ0 lbQiWmisHkkMdgMNUfe18i KZ21HEtyDP4eKHtzEM1iLP KfLCJiZCGvFHQ3PFQgQkG9 IDAuMiBjbSBhbmQgbWVhc3 ErnF3wGCEtWeG7UXPoQnK6 GEChGaIonMFacxMzO8pbQM hyyEEiXWZqOCHvtRYknY0t bbRaoqBsxPHwuKK2IWMrwN 1koU50cyToevEECF2vjGko ABtxeK8zDCRqBYRbZ1Ajji QpAIgjSHPile2nwPqbDVmz EjSgQKQac3r7mYR5lGJxdA Z0vOYxcIsuKzDwRH6msCSj ZE1iDJjhXApqdsNez1NrBS 47qAVjrwWkynYdLxkqo9Ia wCZwLqqvHUIhOBJib41wmE X9ivUdQpQ5OQPtAQSwxiMy NiV5NX6lhJpdzmZbb3K7NG Oad7Q7MRUfZO2hiW0iVZel IHNpemUgZnJvbSAwLjMgeC LgKlKcsZLiLfIaL46ymY4z UN78LKfkXT8wADuxRY4wAZ NtIGFuZCBtZWFzdXJpbmcg AZ0sZKrgHW46HMrgLW9aZB WkMEwqXXIpH2SqH1P6PH3d VGhlIHNwZWNpbWVuIGlzIH Z3Qe2amETyPJRffaA9l9Jj OMngPMOvXysiuY7dINgdmt UpC8oMCVZzad2= MICROSCOPIC DESCRIPTION c9mebINpXLGtbOM6HtCwLG (test code = 3371) Ryx9mvl6MvzQJrgOQuJKqz jDIwaqOhwf53eDK9pA84YJ 2gYEPaDlZ6CZLzzwV0Uwu0 XZHwFYJacZSaW977j0fgi6 egzbPwgQY1dXkyUUGmvnoa JkA1TInySUHbiwivBFi3OE xqNJLjyKY3KYNmsAUsP0Yi ZCAgHW7lbfc1QUV5TWbySZ HqAaO3AVPevNFhBETujJhi HLdfw100EMS9GvWiRRRkbj GzvWcjiE6sLpBjBWTHDQHh MD3zREjtW4qrF9QcZSPaEG uwaUwzm0ahYC2aUD7tfObw bzMmO0yvbDEkeZQlhxZjFe xuFQ2jGVDltjutVEKaHt4v Ng8tc6rmsxitrNNcnpTsoL 7xkIFnjEB7sG0uFYCmheWr i5QqgwQtFJ2soCUzhLIfuF XvYIU4i2TgXDEtHDMcxrYw WZiuX61bseW4XXelZSHtBY 4sAV2pVElhhHhja1JuO5Mn wsBbdUYvf32qD3UfrFTmpz CnsuCdq7VputGozuQwh9R0 qY0kLXD6YUurij6jDLoxIH J9 [id number] 18:24:44 Test Item Value Reference Range Interpretation Comments Case Report (test code Surgical Pathology = 104) Report Case: [id number] Authorizing Provider: Dewayne Wise MD Collected: 01/09/2022 11:31 AM Ordering Location: [facility] Endoscopy Received: 01/09/2022 03:51 PM Services Pathologist: Evelin Wharton MD Specimens: A) - Polyp, Colon - Right/Ascending, ascending colon polyp B) - Polyp, Colon - Sigmoid, sigmoid polyp C) - Biopsy, Gastric, random gastric bx DIAGNOSIS (test code = [id number] 3220) FuZzEwMzNcZnRuYmpcdWMx IHtccnRmMVxlcGljOTYwMV ammfNtIEXadYMsO8Vqowes RDagSD0qDV7dkQsveGFrbT HlOAQpFtRto3sfu251vHAv d5htWZPBfpglsXy2uKxrM3 0hl8S6LpsqH96dfVGpYGP5 PLStDCOcoEGrLIFoOWZ5WG DwyDKvD9ptKIFoKQ4wfieu SFfwVMqoIHKsgHD4COKpiM GoD0LjSPJkBEatBMKvwyk2 UmVmZi8mdNKjnPbyAAdvSR OuKMCiQAygJHGkEaSrCI8v T43EG23qXEPYD3zCP7XWR0 IRBNjBGfzrHD8QGVQAJ4HF RPb4NLNiyyg2HDEoLDLDDI QPIZNVTBSBLV0CAEJocFSz SMBrnnYXOnGDN3tHIrjgW5 gWWR6EXZzxEN1IDZJSS7OE MAf6BKBrsjd9TBGgRKSBLN UXQVSZJXOTLY2FOCCzEAQa clipWIZrEh4uG6IRVIDGFG mgX7mUZYRQC9RaQ0YQF0aO GRYSQOLENR0IV7vlqUUrKJ RhYiAtIFJFQUNUSVZFIEdB D6FDC8QITMkCWLNgcej4JQ MuAYVRGAgRLGqGPK2ML86P EJTLZXFRKC8QYBDCWHrCWJ 9HSUMgQUxURVJBVElPTlxw UWNgkPFnMB8pPhYZCBQNTl YkDi9TWJvZYEeVD5EOT1HW OwCEFXSKB65HH3XBZDABMq KUHjTIS7RKWM6JADFLSMqO A9umDHR3f3brmCOkIVDzrM UxODAwMFxhbnNpXGRlZmxh wzyxTONyEKD3zcRjRZFsQQ ikYSBrPSzpLn5bkFFtvIue YvZqXXSuz6wyrzMPpbithQ s1z8mtTQTnDdV1mREyKUgu U1gqbpRfiTHzEWCiKFv8kT 07CIPgsZ2nwUDtMOsbquZo GlS8INdfBRTwLjU0HLIdoN AaFJErU7kjMKZvHGwbSRKd ZQrusVPyYCF0pOnqa1Z0dY VzaGVldHtcZjBcZnMyMiBO k4YxEXl6nDghI7HuKUYxDe M5dZYhVWVmDUuqDKVoTDGk kuP2nL25DOqiglO8pFRmu0 Ntf29xp986vB9ckESmPQT0 FRIcJTVeqBElIPUuOKG8NW OalTAwN9mvELCgDH8amzkk VPoxHAzyJHLfpHW6VLEcsT DsY3PzMLFeDEmnKNQmvhb5 JbFpKl9crGYsjEtpOXbdg0 ypk1mygNJuWsc3WAHaGuIv WxfeGGasu2Taw1poXPQrub 6qPXA1qHZusRnki6S5oWHm YLKztTAaGXZzQS2leTWtOY PngD9bfazlGVAkBmBuzabv SNKqnYtvemWjKn5tbEkgVX U8DBtdM3vmwM0iRoR3ZQpo K3ushR1gVUw4TAyiOKFlvN I3djT7LRQkmOLqI3QocB0a NUPdPQ7sipg8e9wwKCP6YA byLCLgHgC0jbU4QMGxtBBe TKSynQjeYDvgt012SGS8Lh SiEWGmg2MzD1ZwyPejJ37m aWwnR18oPPUwvLinhU7drJ ggtQ6uNeDkGkPlZLzkoKnx SS5uPTYnJ4mfqUJfZWKdMN PuI3uySxIhqC7nwXpzWQgb qlCcCPJdZbs8EPJjvIPzUD ZoSzb3DPPmWNCvR60rzxzs VAT5kN8wq2bhu3TgUMhjGV X2VUVvq06bIQdelsH6WObk Ko97EDkcWVB5VQlnTTH4jK == CPT Code(s) (test code x5sthVYnKVLsdJH1IpXcVQ = 3357) Ewo2cnh1SrgLRbtVToHZbc hRKhbiSfqf22mTC4cG71PK 2rOUOuDtK9HPRbndA5Uae1 QMAuGMDxyJIsW665l0oqu7 hcxmVbjPL1bYdvHGRlegcj TdG3SBphSGJtyfaiBHf3LU azOUPzpHL3XDWrlBKdB7Vo DKLhXG9xwtr0WOW8GJmmTE CoSjY5TIIsoHRgQIQdaPtk GEaps522FTI5PgPtBSEues YfpBqgxT8lIyCiLLA8CSTg NVgzXHBhcn0= CLINICAL HISTORY (test k4cbxJIfTSXzjVR9ArRyPO code = 3356) Aui7hev1RvpIDlyYPmRSmc eWGcvlXsvw21xCV4hU06BB 8kXOOyIiN4TMUcffC1Apa9 BDHzNPRmyRJdN448d4phf0 zqjrHvvYP2lLtqGNZajhbu PvL2NOsnPENbjaofYKk8MI zyOBJpyJV1MXZczUOxN5An DZBhDW4yeqj0KQG9ATsjAC ObBiM7MWGopALuJCJdtIxj PMlau240DMQ7LqMyJYUydw SdjFpwjC6uBuJxFMQZSCH5 yd3de83uvNCoOQVmXMOlTg w3sRWfrXUoPWViPBPbi7p2 xYNiLjQdd6yxfhmgGNG9 SPECIMEN SOURCE (test o9mmcHIbKAPiyJG1UuAxCZ code = 3377) Kpz5pti0EqnQIxjBBnJNoo mPDzyuHsty21oXD5aT69FF 4kMFCbReF0ODMydsO1Ngk0 OPAhVRCqoXDhQ699w2srl6 edasYuxYN7vUmcPAUzntea NfV8IPovEQJqsmnfDPy3SA jeLXNoiVT7EGNlcYVkR3Zn EJRcBS7ccgs2IOH2UDggND UnYfB5HCVsoJVyNWQumKzy UKbwm123HAG6IuXcJYSenm YbaGstgS8qHyKaJXYBRoPs WZ3bwPVsBVRvfU3pQFUhN5 n5A5HwU7YrVErjZ0rrfN9s UOZvANDZa5n4iIsbH06od9 3bl2sfqK7sQEulnK5aMQKr ZKEQeF5pl6tjNPweb1EjqQ MsIHJhbmRvbVxwYXJ9 GROSS DESCRIPTION (test b9jurFBxTXEgdOLjRrLoEX code = 3366) KmQRSye8ujTBMouCKdZeEv MzNcZnRuYmpcdWMxXGRlZm Uep7igq518hZFzd1jrGURH frrhaUu4i8nuNSOvDvH4fD UpJRsqV3xfapJilHNiONDr JSy5uE10BEIzhK7mhYIcJH bfzjDzEtT2FXyrERMwLhU3 FQTuyVIjUKMmY7nwZSUwSR pvXAGpDSlezLCqFZO6rYso g8N2tOUwpVDilRgoPwIxJm HgJNIEn7TlUQy9zIutC6Cb VTOxFaD7hXFqAEVtXZhcDO XnHTOqswY3sT75HCtiymS6 eHNsx3Hsp33df251gJ6ruY XsTEE7JUUlZJSxzGLdGJRp PZA5LHOdkQInZ0j2HzWxaH XiP0N8XtNgmNQeP1V8NpCs gAJhQ0F1UmWhxFUvPUKccF CvCa3vrOHfiCRgox2eju48 EJA8y3VgeWdaOWH6HDE0Ak OaRo2wiCMtTIIwMAQrnCJt XRMmSS3kjWGhEBWazO8dnq xjXHBnYnJkcmhlYWRccGdi hdZoEw5byEzoFSK8QUchH2 jrfU6iPfD9JXkoD9zwpS5r HEu1BFnejRE7LCYllH5jZX 2socdit4lhIdLxNK9gccye g0itOrBtWB8bxyj0t3hkUl CgAH3utjfhk5ihGkUdRUur YCNyysipQMHko2JmstzzJU Lyt3OkC1TnfMqjW78ovBmb F66uLXOjfZnevW0tyHmdsP 5cZjBcZnMyNFxwYXJkXHBs YWluXGYxXGZzMjBcbGFuZz EwMzNcaGljaFxmMVxkYmNo OPWkABeeP7lxSkDuYeBpUJ BBLiBSZWNlaXZlZCBpbiBm n9GjNHsqqzKeXEAnwNEbYD dpdGggdGhlIHBhdGllbnRc A0O3sdElFR5uOGFmELTwQ0 WbRMZxY96xZRYejE8kWYGh SA7sQWFbs8FewpQwdoefC3 7ak94gfG3oiDLjUISyVGRa u97rqGR4wuOmAnRsWTEvJT VfNA8uPOLwukUkh5S1DZMm b0M6KQGdTPBbyKVtqyntES 67DAaeRD54RWyhWC5tESZu MnSXuBFwc9IdO4phRN2ajB Umx3GniQu7cIEjMMqrHIGa rZ7nuO9gMDWiKNiyicTvbE luZSBCLiBSZWNlaXZlZCBp gvKmb1ZvKRunseRiMPGhvS VkIHdpdGggdGhlIHBhdGll ueRoD8X9azNrAI6uKACcAI ExZ1SoFFUwE74pADUrnD0x DHUsPR1cLHPmoYudo0daHO FzuY6dHQUikPceZhVvhhGu L00ci9zapYTqs9EkZnDrpQ UnLWOqq7JckODzWUEnsfnv v20wcQS0nYCrxEOfhzEmO9 cwEkSypgFipLzoUZMzu86r QZ15FSacKT6wAFjeKB3nJW JwFQGaOSBtFSI4OYOwPkR6 IDAuMiBjbSBhbmQgbWVhc3 ZrwQ4fGAKsFkU0TPPbKoS5 IYXvOiIdpQQcefWhI5mdLS sswECeYGNwVRLdhKImgY1s fdHrncVjmKFdbEV1UWQatO 0xxU51lrLbbsRTIQ8eiCyn LFjbbQ4oMBDaJCBtP3Okmf LjHPjkKXAere6zwSmgINbu YzFcYSJzd8x9xIM1yBDkfI P9zEVrfZkbAvJtBP8sbOPg NK9mAOzwCSyomqZsa0YrNR 02dXWibfHqtrZlGeort9Fj dLIzJwwdCTScBFLog22qnI Z2ruAbDaR4RJWsFATbiySh KhB8VM2dgNklbeDvu1E0JG Cru0V0UFXwUJ8tmK9sRAjc IHNpemUgZnJvbSAwLjMgeC MnYmJesGEuYwZvS13yjG0f QU56CXkuYO2eFPlxTJ7gLL NtIGFuZCBtZWFzdXJpbmcg DI1mYNyhQJ05HDpqMF2zTB VtRBtuQFOlW2WuR7K0QI7f VGhlIHNwZWNpbWVuIGlzIH Q4Pa9xwOSlSPEqmlN4a6Hh YWtvLEQvKljmmG0iISufvi FyH8oPJTLffq1= MICROSCOPIC DESCRIPTION n1fyaRRhQWXlpEH3IpYbEW (test code = 3371) Fck5bed0TgzTNcvMPqKWok zYJgqyPymi10zWF9aS90UQ 0uZIJcWxD5JQRkasZ8Tya4 QKRsWHXsdPQyW356z4ghk7 gqihRngIR6jKxxGCBsuqmu RkL3LDvfSQHewrzvFQb8AU ssJOVdhEI4AQAmrTDgY3Nz AIMcBG0udca3FGC5QZdsKM SxJbI3XQBakEJzHJWemRds UGysi535EOZ4JwVpUABgcu RjwHvjzE8zVpVcSPOUNMXo KR9eXRpoW9vqM1NdQWYkJO fqeShns7dhFN7cVU6mnDxe qfWfS5rscRKiqTQpfmKkNs jsHM3iKKOinjejGEFuWk4n Th9mq9quyappjCOjvbLasN 3qnJBbwXZ1lH6bTPWefsEw y8IitgSfDR4hfPJxjTHvdD BsXAK0c3ImCPVoPNBbsgGl IKbhV65evgL5CAamYWVaLA 6bEN1lOWlodQrvv5IuS9Tk zfXzdAUhl12yP6UurUErcl UcscGwi0XfpvPknyJhj0Y6 iY9vQJU9RFdixq6bDEapYD J9 [id number] 18:24:44Surgical Pathology Report Case: [id number] Authorizing Provider: Dewayne Wise MD Collected: 01/09/2022 11:31 AM Ordering Location: [facility] Endoscopy Received: 01/09/2022 03:51 PM Services Pathologist: Evelin Wharton MD Specimens: A) - Polyp, Colon - Right/Ascending, ascending colon polyp B) - Polyp, Colon - Sigmoid, sigmoid polyp C) - Biopsy, Gastric, random gastric bx A. COLON, RIGHT/A SCENDING, POLYPECTOMY: - TUBULAR ADENOMAB. COLON, SIGMOID, POLYPECTOMY: - TUBULAR ADENOMA C. STOMACH, SITE NOT SPECIFIED, BIOPSY - REACTIVE GASTROPATHY - OXYNTIC MUCOSA WITH NO PATHOLOGIC ALTERATION - NEGATIVE FOR HELICOBACTER MICROORGANISMS ON ROUTINE STAINS Signing Pathologist Direct Phone Line: [phone] signed by Evelin Wharton MD on 01/12/2022 at 6:24 [id number] reflux disease, polyp of colonA. Polyp, colon- [...] Helicobacter microorganisms are seen on routine stains.POC-Glucose [id number] 13:54:18 Test Item Value Reference Range Interpretation Comments POC-Glucose Meter (test 133 mg/dL 70-110 H : TE STED AT [facility] code = 1538) [address] [place] [address], [facility] 30: Paint Specialist/Techni miguelina ID = [id number] for Rajat, Marybel Lab Interpretation (test Abnormal code = 96980-3) [facility]-Glucose [id number] 13:54:18 Test Item Value Reference Range Interpretation Comments POC-Glucose Meter (test 133 mg/dL 70-110 H : TE STED AT [facility] code = 1538) [address] [place] [address], 770 30: Paint Specialist/Techni miguelina ID = [id number] for Rajat, Marybel Lab Interpretation (test Abnormal code = 59033-8) [facility]-Glucose [id number] 13:54:18 Test Item Value Reference Range Interpretation Comments POC-Glucose Meter (test 133 mg/dL 70-110 H : TE STED AT [facility] code = 1538) [address] [place] [address], 770 30: Paint Specialist/Techni miguelina ID = [id number] for Rajat, Marybel Lab Interpretation (test Abnormal code = 60986-6) [facility]-Glucose [id number] 13:54:18 Test Item Value Reference Range Interpretation Comments POC-Glucose Meter (test 133 mg/dL 70-110 H : TE STED AT [facility] code = 1538) [address] [place] [address], 770 30: Paint Specialist/Techni miguelina ID = [id number] for Rajat, Marybel Lab Interpretation (test Abnormal code = 07182-9) [facility]-Glucose [id number] 13:54:18 Test Item Value Reference Range Interpretation Comments POC-Glucose Meter (test 133 mg/dL 70-110 H : TE STED AT [facility] code = 1538) [address] [facility], 770 30: Paint Specialist/Techni miguelina ID = [id number] for Marybel Earl Lab Interpretation (test Abnormal code = 13031-3) [facility] [id number] 13:54:18 Test Item Value Reference Range Interpretation Comments POC-Glucose Meter (test 133 mg/dL 70-110 H : TE STED AT [facility] code = 1538) [address] [place] [address], 770 30: Paint Specialist/Techni miguelina ID = [id number] for Marybel Earl Lab Interpretation (test Abnormal code = 56432-0) [facility] [id number] 13:54:18 Test Item Value Reference Range Interpretation Comments POC-Glucose Meter (test 133 mg/dL 70-110 H : TE STED AT [facility] code = 1538) [address] [facility], 770 30: Paint Specialist/Techni miguelina ID = [id number] for Marybel Earl Lab Interpretation (test Abnormal code = 56150-1) [facility] [id number] 13:54:18 Test Item Value Reference Range Interpretation Comments POC-GLUCOSE METER 133 mg/dL 70-110 H : TESTED A T [facility] 6720 (BEAKER) (test code = [facility], 1538) [address]: Paint Specialist/Techni miguelina ID = [id number] for Marybel Pina POCT-GLUCOSE [id number] 10:12:16 Test Item Value Reference Range Interpretation Comments POC-GLUCOSE METER 135 mg/dL 70-110 H : TESTED A T [facility] 6720 (BEAKER) (test code = [facility], 1538) [address]: Paint Specialist/Techni miguelina ID = [id number] for MAYELA BROWNING SARS-CoV2/RT-PCR (Asymptomatic ONLY)2022-01-09 09:03:44 Test Item Value Reference Interpretation Comments Range SARS-COV2/RT-PCR Negative Negative The SARS-Co V-2 (test code = target nucleic 31173-3) acids are not detected in thi s [...] revoked sooner. Fact Sheet for Healthcare Providers: https://www.[employer]/Documents/Xp ert%20Xpress%20SAR S%20CoV-2/Fact%20S heets/302-3802%20S ARS-COV-2%20HEALTH CARE%20PROVIDERS%2 0FACT%20SHEET.pdf Fact Sheet for Healthcare Patients: https://www.[employer]/Documents/Xp ert%20Xpress%20SAR S%20CoV-2/Fact%20S heets/302-3801%20S ARS-COV-2%20PATIEN T%20FACT%20SHEET.p df Lab Interpretation Normal (test code = 22058-5) [facility]2022-01-09 09:03:44 Test Item Value Reference Interpretation Comments Range SARS-COV2/RT-PCR Negative Negative The SARS-Co V-2 (test code = target nucleic 81515-6) acids are not detected in thi s [...] om SARS-CoV-2 in a nasopharyngeal swab specimen [facility] kaylie from individual s suspected of [...] revoked sooner. Fact Sheet for Healthcare Providers: https://www.[employer]/Documents/Xp ert%20Xpress%20SAR S%20CoV-2/Fact%20S heets/302-3802%20S ARS-COV-2%20HEALTH CARE%20PROVIDERS%2 0FACT%20SHEET.pdf Fact Sheet for Healthcare Patients: https://www.[employer]/Documents/Xp ert%20Xpress%20SAR S%20CoV-2/Fact%20S heets/302-3801%20S ARS-COV-2%20PATIEN T%20FACT%20SHEET.p df Lab Interpretation Normal (test code = 93957-7) [facility]2022-01-09 09:03:44 Test Item Value Reference Interpretation Comments Range SARS-COV2/RT-PCR Negative Negative The SARS-Co V-2 (test code = target nucleic 73090-8) acids are not detected in thi s [...] revoked sooner. Fact Sheet for Healthcare Providers: https://www.[employer]/Documents/Xp ert%20Xpress%20SAR S%20CoV-2/Fact%20S heets/302-3802%20S ARS-COV-2%20HEALTH CARE%20PROVIDERS%2 0FACT%20SHEET.pdf Fact Sheet for Healthcare Patients: https://www.[employer]/Documents/Xp ert%20Xpress%20SAR S%20CoV-2/Fact%20S heets/302-3801%20S ARS-COV-2%20PATIEN T%20FACT%20SHEET.p df Lab Interpretation Normal (test code = 45112-2) [facility]2022-01-09 09:03:44 Test Item Value Reference Interpretation Comments Range SARS-COV2/RT-PCR Negative Negative The SARS-Co V-2 (test code = target nucleic 62354-1) acids are not detected in thi s [...] revoked sooner. Fact Sheet for Healthcare Providers: https://www.[employer]/Documents/Xp ert%20Xpress%20SAR S%20CoV-2/Fact%20S heets/302-3802%20S ARS-COV-2%20HEALTH CARE%20PROVIDERS%2 0FACT%20SHEET.pdf Fact Sheet for Healthcare Patients: https://[employer]/Documents/Xp ert%20Xpress%20SAR S%20CoV-2/Fact%20S heets/302-3801%20S ARS-COV-2%20PATIEN T%20FACT%20SHEET.p df Lab Interpretation Normal (test code = 53295-9) [facility]2022-01-09 09:03:44 Test Item Value Reference Interpretation Comments Range SARS-COV2/RT-PCR Negative Negative The SARS-Co V-2 (test code = target nucleic 24030-9) acids are not detected in thi s [...] revoked sooner. Fact Sheet for Healthcare Providers: https://www.[employer]/Documents/Xp ert%20Xpress%20SAR S%20CoV-2/Fact%20S heets/302-3802%20S ARS-COV-2%20HEALTH CARE%20PROVIDERS%2 0FACT%20SHEET.pdf Fact Sheet for Healthcare Patients: https://www.[employer]/Documents/Xp ert%20Xpress%20SAR S%20CoV-2/Fact%20S heets/302-3801%20S ARS-COV-2%20PATIEN T%20FACT%20SHEET.p df Lab Interpretation Normal (test code = 86507-4) [facility]2022-01-09 09:03:44 Test Item Value Reference Interpretation Comments Range SARS-COV2/RT-PCR Negative Negative The SARS-Co V-2 (test code = target nucleic 79017-8) acids are not detected in thi s [...] revoked sooner. Fact Sheet for Healthcare Providers: https://www.[employer]/Documents/Xp ert%20Xpress%20SAR S%20CoV-2/Fact%20S heets/302-3802%20S ARS-COV-2%20HEALTH CARE%20PROVIDERS%2 0FACT%20SHEET.pdf Fact Sheet for Healthcare Patients: https://www.[employer]/Documents/Xp ert%20Xpress%20SAR S%20CoV-2/Fact%20S heets/302-3801%20S ARS-COV-2%20PATIEN T%20FACT%20SHEET.p df Lab Interpretation Normal (test code = 18672-8) [facility]2022-01-09 09:03:44 Test Item Value Reference Interpretation Comments Range SARS-COV2/RT-PCR Negative Negative The SARS-Co V-2 (test code = target nucleic 95435-0) acids are not detected in thi s [...] revoked sooner. Fact Sheet for Healthcare Providers: https://www.[employer]/Documents/Xp ert%20Xpress%20SAR S%20CoV-2/Fact%20S heets/302-3802%20S ARS-COV-2%20HEALTH CARE%20PROVIDERS%2 0FACT%20SHEET.pdf Fact Sheet for Healthcare Patients: https://www.[employer]/Documents/Xp ert%20Xpress%20SAR S%20CoV-2/Fact%20S heets/302-3801%20S ARS-COV-2%20PATIEN T%20FACT%20SHEET.p df Lab Interpretation Normal (test code = 85481-1) [facility])2022-01-09 09:03:44 Test Item Value Reference Range Interpretation Comments SARS-COV2/RT-PCR Negative Negative The SARS-Co V-2 target (test code = nucleic acids a re not 2329142) detected in thi s specimen. Negative result [...] revoked sooner. Fact Sheet for Healthcare Providers: https://[employer]/Documents/Xpert%20Xpress%20SARS%20CoV-2/Fact%20Sheets/302-3802%11ZOVZ-GUD-1%20 HEALTHCARE%20PROVIDERS%20FACT%20SHEET.pdf Fact Sheet for Healthcare Patients: https://[employer]/Documents/Xpert%20Xp ress%20SARS%20CoV-2/Fact%20Sheets/302-3801%84SFRJ-TKZ-4%20PATIENT%20FACT%20SHEET .[id number] 14:57:00 Test Item Value Reference Range Interpretation Comments SURG (test code = SURG) RUN DATE: 08/26/20 [facility] PAGE 1 RUN TIME: 1457 Specimen Inquiry RUN USER: INTERFACE PATIENT: PEPE ACOSTA LOC: ANDI U #: [id number] AGE/SX: 55/F ROOM: RE08/23/20REG DR: Tapan Harper MD : 69 BED: DIS: STATUS: DEP SDC TLOC: SPEC #: [id number] RECD: 08/23/20 STATUS: KRISTIN [place] #: [id number] AN: 08/23/[address]: Tapan Harper MD ENTERED: 08/23/20 SP TYPE: SURG OTHR DR: Jaron Irving DO ORDERED: SURG PATH LVL 02/01 COPIES TO: Jaron Irving DO [address] [place] [address] Tpaan Harper MD [address] [place], [place] [address] HISTOLOGY: TISSUE ID [id number] PCS DIANE LEV [...] - R10.84; K59.00 CPT CODES CPT CODE(S): 46104X5 , , , , , , FINAL DIAGNOSIS A. Colon, right, biopsy: COLONIC MUCOSA WITH NO PATHOLOGIC DIAGNOSIS B. Colon, mid, biopsy: COLONIC MUCOSA WITH NO PATHOLOGIC DIAGNOSIS CONTINUED ON NEXT PAGE RUN DATE: 08/26/20 [facility] - LAB PAGE 2 RUN TIME: 1457 Specimen Inquiry RUN USER: INTERFACE SPEC #: [facility]:[id number] PATIENT: PEPE ACOSTA #[id number] (Continued) FINAL DIAGNOSIS (Continued) C. Colon, left, [...] all as C. ba/nr Grossing performed at [facility] Pathology, [address], [address], [place] [address]. Partner Integration Planner: Leeroy Jimenes M.D. MICROSCOPIC DESCRIPTION A. Right [...] 08/26/20 1457 END OF REPORT GLUCOSE BEDSIDE [id number] 08:29:00 Test Item Value Reference Range Interpretation Comments GLUCOSE BEDSIDE TESTING (test code 156 mg/dL 70-110 H = GLUBED) BASIC METABOLIC [id number] 12:40:00 Test Item Value Reference Range Interpretation [...] CA) 9.0 MG/DL 8.5-10.1 N BASIC METABOLIC [id number] 12:37:00 Test Item Value Reference Range Interpretation [...] 9.0 MG/DL 8.5-10.1 N COVID 19 INHOUSE [id number] 12:37:00 Test Item Value Reference Range Interpretation Comments COVID 19 INHOUSE AG NEGATIVE Negative Per manu facturer, (test code = negative result s should [id number]) be treated aspr esumptive and, if inconsi [...] symptoms co nsistent with COVID-19. CBC W/AUTO [id number] 12:23:00 Test Item Value Reference Range Interpretation [...] (test code NO DIFF/SCN CRITERIA = SILVER) [id number] 15:34:00 RUN DATE: 12/13/19 [facility] PAGE 1 RUN TIME: 1535 Specimen Inquiry RUN USER: INTERFACE ----- -------PATIENT: PEPE ACOSTA LOC: [facility] U #: [id number] AGE/SX: 54/F ROOM: RE12/11/19[facility] DR: Zacarias Rodriguez MD : 69 BED: DIS: STATUS: DEP SDC TLOC: SPEC #: [id number] RECD: 12/11/19 STATUS: KRISTIN RELang #: [id number] AN: 12/11/[address] [facility] [address]: Zacarias Rodriguez MD ENTERED: 12/11/19 SP TYPE: SURG OTHR DR: Jaron Irving DO ORDERED: SURG PATH LVL 01/31 COPIES TO: Jaron Irving DO [address] [place], [place] [address] Zacarias Rodriguez MD [address] [place] [address] HISTOLOGY: TISSUE ID BLK PCS DIANE LEV PROCEDURE DISPOSITION ____ ___ ___ ___ GASTRIC ANTRUM A 1 3 GASTRIC ANTRUM B 1 3 PROCEDURES: SURG PATH LVL 4 (12/11/19-1054) TISSUES: A. GASTRIC ANTRUM - GASTRIC BIOPSY B. GASTRIC ANTRUM - DISTAL GASTRIC BIOPSY CLINICAL HISTORY EPIGASTRIC PAIN -R10.13; NAUSEA -R11.0; VOMITING -R11.10 CPT CODES CPT CODE(S): 58532R0 , , , , , , FINAL DIAGNOSIS A. Stomach, biopsy: MILD CHRONIC GASTRITIS NEGATIVE FOR INTESTINAL METAPLASIA, DYSPLASIA, OR MALIGNANCY NEGATIVE FOR HELICOBACTER PYLORI ORGANISMS B. Stomach, distal, biopsy: MILD CHRONIC GASTRITIS NEGATIVE FOR INTESTINAL METAPLASIA, DYSPLASIA, OR MALIGNANCY CONTINUED ON NEXT PAGE RUN DATE: 12/13/19 [facility] PAGE 2 RUN TIME: 1535 Specimen Inquiry RUN USER: INTERFACE SPEC #: [id number] PATIENT: PEPE ACOSTA #[id number] (Continued)------ ------ FINAL DIAGNOSIS (Continued) NEGATIVE FOR HELICOBACTER PYLORI ORGANISMS GROSS DESCRIPTION A. Gastric biopsy. Received in formalin is a vazquez tissue fragment, 0.5 cm, all as A. B. Distal gastric biopsy. Received in formalin is a vazquez tissue fragment, 0.3 cm, all as B. shivam/nr Grossing performed at [facility] Pathology, [address] [place] [address], [address], [place] [address]. Partner Integration Planner: Leeroy Jimenes M.D. MICROSCOPIC DESCRIPTION A. Gastric [...] organisms are identified. Signed SIGNATURE ON FILE Stuart Mendozasami Bender 12/13/19 1534 END OF REPORT GLUCOSE BEDSIDE [id number] 06:17:00 Test Item Value Reference Range Interpretation Comments GLUCOSE BEDSIDE TESTING (test code 170 mg/dL 70-110 H = GLUBED) UR HCG [id number] 11:12:00 Test Item Value Reference Range Interpretation Comments UR HCG QUAL (test code = HCGQLU) NEGATIVE NEGATIVE Notes Date/Time Note Provider Source 2020-08-23 [id number] [facility] 08:52:00-00:00 [place] [id number] [place] [address] PATIENT NAME: PEPE ACOSTA ADMIT DATE: 0 ACCOUNT NO: [id number] ROOM NO: AGE: 55 REPORT TYPE: OPERATIVE REPORT SEX: F ADMITTING PHYSICIAN: ATTENDING PHYSICIAN: Tapan Harper MD OPERATION DATE: 08/23/2020 PREOPERATIVE DIAGNOSES: Coli tis, colonic ulceration surveillance ____ progress. POSTOPERATIVE DIAGNOSIS: See below. PROCEDURES: 1. Colonoscopy. 2. Segmental biopsy for colon x 3 biopsy bottle. SURGEON: Tapan Harper MD PULMONOLOGIST INTENSIVIST: ANESTHESIA: Administered by department of anesth esia. INDICATION: Colitis, colonic ulceration surveill ance ____ progress. COMPLEXITY: Moderate. TOLERANCE TO ANESTHESIA: Excellent. PREP: [place] prep right 2/3, mid 2/3, left 2/3, total 6/9. Marginal preparation. Lesions cannot be ruled out. [...] the colonoscope and colonoscopic accessories were removed. Alex lopez patient's rectal area cleaned out in a [...] above. Dictated By: Tapan Harper MD WT: OP:L.RENETTA/CHRISTOPHERI/NTS Conf#: [id number]/DID#: [id number] Authenticated by Tapan Harper MD On 08/30/2020 08:30:15 AM at 0830 PATIENT NAME: PEPE ACOSTA [id number] 2020-08-22 [id number] [facility] 10:59:00-00:00 [place] [address] PATIENT NAME: PEPE ACOSTA ADMIT DATE: ACCOUNT NO: [id number] ROOM NO: AGE: 55 REPORT TYPE: eELECTROCARDIOGRAM SEX: F ADMITTING PHYSICIAN: ATTENDING PHYSICIAN: Tapan Harper MD Order: [id number] Test Reason : PRE OP Test Date/Time [...] (2108) on 11/05/2019 10:27:01 PM Referred By: Nizam Meah Confirmed by:JOHNATHON SANTIZO MD at 2227 PATIENT NAME: PEPE ACOSTA 9314 [facility]11 [facility] ([facility] Post Anesthesia Evaluation REPORT#:[id number] REPORT STATUS: Signed DATE:12/11/19 TIME:1059 PATIENT: PEPE ACOSTA UNIT #: [id number] ROOM/BED: : 67 AGE: 54 SEX: F ATTEND: Leticia Rodriguez MD ADM AUTHOR: Gini Nieves MD * ALL edits or amendments must be made on the el [employer]/computer document * General Post-op: post surgery rounds Post Anesthesia Evaluation Anes. changes from pre-op eval ORM Surgeries: Surgery Date and Time: 12/11/2019729 Primary Procedure: ESOPHAGOGASTRODUODENOSCOPY Anesthetic: TIVA Date: 12/11/19 Level of consciousness: leila ent awake, able to answer questions, participate in this eval. Vital signs: Last Documented: Result Date Time Pulse Ox 95 12/11 945 B/P 108/70 12/11 945 O2 Delivery Room air 12/11 945 O2 Flow Rate [id number] 12/11 945 Pulse 79 12/11 945 Resp [...] MD on 12/02 at 1100 RPT #: [id number] END OF REPORT 2019-12-11 [id number] [facility] 07:[facility]:00-00:00 [facility] [address] [place] [address] PATIENT NAME: PEPE ACOSTA ADMIT DATE: 0 ACCOUNT NO: [id number] ROOM NO: AGE: 54 REPORT TYPE: OPERATIVE REPORT SEX: F ADMITTING PHYSICIAN: ATTENDING PHYSICIAN: Zacarias Rodriguez MD OPERATION DATE: 12/11/2019 PREOPERATIVE DIAGNOSIS: POSTOPERATIVE DIAGNOSIS: PROCEDURES: 1. EGD. 2. Biopsy from gastric body and antrum. 3. Biopsy from distal esophagus. SURGEON: Tapan Harper MD PULMONOLOGIST INTENSIVIST: ANESTHESIA: Anesthesia by departmental anesthesi a. INDICATION [...] fatalities, aspiration, etc. explained to the responsible alliance party, consent was obtained. She was placed in [...] By: Tapan Harper MD WT: OP:L.HIM/CHRISTOPHERI/NTS Conf#: [id number]/DID#: [id number] Authenticated by Tapan Harper MD On 12/14/2019 02:52:57 PM at 1453 PATIENT NAME: PEPE ACOSTA 1832 2015-10-24 CT SCAN OF THE ABDOMEN AND PELVIS WITH CONTRAST: MORRIS Tavarez 11:25:00-00:00 DISCUSSION: The study is a preoperative [...] Please regan elate with risk factors. SL: 2015-10-24 CT SCAN OF THE ABDOMEN AND PELVIS WITH CONTRAST: MORRIS Tavarez 11:25:00-00:00 DISCUSSION: The study is a preoperative [...] Please regan elate with risk factors. SL: 2015-10-24 CT SCAN OF THE ABDOMEN AND PELVIS WITH CONTRAST: MORRIS Tavarez 11:25:00-00:00 DISCUSSION: The study is a preoperative [...] regan elate with risk factors. SL: 14 2015-10-24 CT SCAN OF THE ABDOMEN AND PELVIS WITH CONTRAST: MORRIS Cardland 11:25:00-00:00 DISCUSSION: The study is a preoperative [...] Please regan elate with risk factors. SL: 2015-10-24 CT SCAN OF THE ABDOMEN AND PELVIS WITH CONTRAST: MORRIS Tavarez 11:25:00-00:00 DISCUSSION: The study is a preoperative [...] Please regan elate with risk factors. SL: 2015-10-24 CT SCAN OF THE ABDOMEN AND PELVIS WITH CONTRAST: MORRIS Tavarez 11:25:00-00:00 DISCUSSION: The study is a preoperative [...]
[2023-05-18] MEDS ORDERED: MAGNESIUM CITRATE 300 ML BOT ONE (15:18)
[2023-05-18] MEDS ORDERED: BISACODYL 10 MG RECTAL SUPP ONE (15:18)
--- NOTE | 2023-05-18 15:34 | ER ---
Nurse's Notes [facility] Name: Maria De Jesus Acosta Age: 58 yrs Sex: Female : 1965 Arrival Date: 05/18/2023 Time: 13:24 Bed 5 Private MD: Diagnosis: Lower abdominal pain, unspecified;Constipation Presentation: 05/18 13:30 Chief complaint: Patient states: chest pain, feeling lightheaded, and SOB since aa5 yesterday. Reports constipation, last BM 4 days ago. 13:30 Coronavirus screen: shortness of breath. Ebola Screen: Patient denies travel to an [facility] Ebola-affected area in the 21 days before illness onset. Initial Sepsis Screen: Does the patient meet any 2 criteria? HR > 90 bpm. Does the patient have a suspected source of infection? No. Patient's initial sepsis screen is negative. Risk Assessment: Do you want to hurt yourself or someone else? Patient reports no desire to harm self or others. Onset of symptoms was May 2023. 13:30 Acuity: EMERALD 3 aa5 13:30 Method Of Arrival: Wheelchair aa5 Historical: - Allergies: 13:38 Doxycycline; aa5 13:38 kiwi; aa5 13:38 metoclopramide HCl; aa5 13:38 orange juice; aa5 13:38 Reglan; aa5 - PMHx: 13:38 Asthma; CHF; COPD; Crohn's; Diabetes - NIDDM; Hypertension; Nasal cancer; aa5 - PSHx: 13:38 Appendectomy; Cholecystectomy; Ligation of fallopian tube; Shoulder; aa5 - Immunization history:: Adult Immunizations unknown. - Social history:: Smoking status: Patient denies any tobacco usage or history of. Screenin:44 [place] ED Fall Risk Assessment (Adult) History of falling in the last 3 months, kc6 including since admission No falls in past 3 months (0 pts) Confusion or Disorientation No (0 pts) Intoxicated or Sedated No (0 pts) Impaired Gait No (0 pts) Mobility Assist Device Used Yes (1 pt) Altered Elimination No (0 pt) Score/Fall Risk Level 0 - 2 = Low Risk Oriented to surroundings, Maintained a safe environment, Educated pt \T\ family on fall prevention, incl call for assistance when getting out of bed, Assessed \T\ reinforced patient's understanding of fall precautions, Hourly rounding (assess needs \T\ fall precautionary measures) done. Abuse screen: Denies threats or abuse. Denies injuries from another. Nutritional screening: No deficits noted. Tuberculosis screening: No symptoms or risk factors identified. Assessment: 14:39 General: Appears in no apparent distress. comfortable, obese, Behavior is calm, kc6 cooperative, appropriate for age. Pain: Complains of pain in chest and abdomen Pain does not radiate. Neuro: Level of Consciousness is awake, alert, obeys commands, Oriented to person, place, time, situation, Appropriate for age. Cardiovascular: Capillary refill < 3 seconds. Respiratory: Airway is patent Trachea midline Respiratory effort is even, unlabored, Respiratory pattern is regular, symmetrical. GI: Abdomen is round non-distended, Bowel sounds present X 4 quads. Abd is soft X 4 quads Reports constipation, nausea. : No signs and/or symptoms were reported regarding the genitourinary system. EENT: No signs and/or symptoms were reported regarding the EENT system. Derm: No signs and/or symptoms reported regarding the dermatologic system. Skin is intact, is healthy with good turgor, Skin is pink, warm \T\ dry. Musculoskeletal: No signs and/or symptoms reported regarding the musculoskeletal system. Circulation, motion, and sensation intact. Capillary refill < 3 seconds, Range of motion: intact in all extremities. Vital Signs: 13:30 BP 129 / 86; Pulse 97; Resp 20 S; Temp 97.8(O); Pulse Ox 91% on R/A; Weight 157.5 kg aa5 (M); Height 5 ft. 3 in. (R); 14:40 BP 115 / 76; Pulse 93; Resp 22 S; Pulse Ox 91% on 3 lpm NC; kc6 13:30 Body Mass Index 61.51 (157.50 kg, 160.02 cm) aa5 ED Course: 13:28 Patient arrived in ED. mg5 13:29 Matt Hollingsworth MD is Attending Physician. kdr 13:30 Arm band placed on. aa5 13:32 Lizzette Hobbs RN is Primary Nurse. kc6 13:37 Triage completed. aa5 13:44 Inserted saline lock: 20 gauge in right antecubital area, using aseptic technique. kc6 Blood collected. Oxygen administration via nasal cannula \T\ 2L/min. 13:45 Patient has correct armband on for positive identification. Bed in low position. Call kc6 light in reach. Side rails up X2. Adult w/ patient. Client placed on continuous cardiac and pulse oximetry monitoring. NIBP monitoring applied. patient monitor on. 14:20 CT Abd/Pelvis - IV Contrast Only In Process Unspecified. EDMS 14:42 XRAY Chest (1 view) In Process Unspecified. EDMS 15:13 No provider procedures requiring assistance completed. mb9 15:36 IV discontinued, intact, bleeding controlled, No redness/swelling at site. Pressure mb9 dressing applied. Administered Medications: 15:23 Drug: Bisacodyl [place] Enema (10 mg/30mL) 10 mg Route: WI; mb9 15:36 Follow up: Response: No adverse reaction mb9 15:32 Drug: Magnesium Citrate PO Liquid 300 ml Route: PO; mb9 15:36 Follow up: Response: No adverse reaction mb9 Medication: 15:36 VIS not applicable for this client. mb9 Outcome: 15:33 Discharge ordered by . kdr 15:50 Discharged to home via wheelchair. mb9 15:50 Condition: stable 15:50 Discharge instructions given to patient, Instructed on discharge instructions, follow up and referral plans. Demonstrated understanding of instructions, follow-up care, medications, Prescriptions given X 2. 15:54 Patient left the ED. mb9 Signatures: Dispatcher [employer] EDMS Matt Hollingsworth MD MD kdr Calderon, Audri, RN RN [email or web address] Lizzette Hobbs RN RN [email or web address] Flory Murdock RN RN mb9 Vangie Tobin mg5
--- NOTE | 2023-05-18 15:34 | EDPHYS ---
Physician Documentation [facility] Name: Maria De Jesus Acosta Age: 58 yrs Sex: Female : 1965 Arrival Date: 05/18/2023 Time: 13:24 Bed 5 Private MD: ED Physician Matt Hollingsworth HPI: 05/18 16:53 This 58 yrs old Female presents to ER via Wheelchair with complaints of Chest kdr Pain, Constipation, Abdominal Pain. 16:53 Patient presents today with chest pain lightheadedness and shortness of breath since kdr yesterday. She is also had abdominal pain and constipation. Her last BM was about 4 days ago. 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 She states that she is not taking them a lot but does take them from time to time. She had a similar episode on her last admission about the middle of April. In a similar fashion she was having constipation and got relief with the interventions given at that time. Patient appears nontoxic but mildly uncomfortable. Patient otherwise has no concerns or obvious need for intervention acutely.. Onset: The symptoms/episode began/occurred gradually, 4 day(s) ago. Severity of symptoms: At their worst the symptoms were mild moderate just prior to arrival, in the emergency department the symptoms are unchanged. Historical: - Allergies: 13:38 Doxycycline; aa5 13:38 kiwi; aa5 13:38 metoclopramide HCl; aa5 13:38 orange juice; aa5 13:38 Reglan; aa5 - PMHx: 13:38 Asthma; CHF; COPD; Crohn's; Diabetes - NIDDM; Hypertension; Nasal cancer; aa5 - PSHx: 13:38 Appendectomy; Cholecystectomy; Ligation of fallopian tube; Shoulder; aa5 - Immunization history:: Adult Immunizations unknown. - Social history:: Smoking status: Patient denies any tobacco usage or history of. ROS: 16:54 Constitutional: Negative for fever, chills, and weight loss, Eyes: Negative for injury, kdr pain, redness, and discharge, Neck: Negative for injury, pain, and swelling, Respiratory: Negative for shortness of breath, cough, wheezing, and pleuritic chest pain, Back: Negative for injury and pain, : Negative for injury, bleeding, discharge, and swelling, MS/Extremity: Negative for injury and deformity, Skin: Negative for injury, rash, and discoloration, Neuro: Negative for headache, weakness, numbness, tingling, and seizure activity. Psych: Negative for depression, anxiety, suicide ideation, homicidal ideation, and hallucinations, Allergy/Immunology: Negative for hives, rash, and allergies, Endocrine: Negative for neck swelling, polydipsia, polyuria, polyphagia, and marked weight changes, Hematologic/Lymphatic: Negative for swollen nodes, abnormal bleeding, and unusual bruising. 16:54 Cardiovascular: Positive for chest pain, with cough, with movement, Negative for edema, orthopnea, palpitations, paroxysmal nocturnal dyspnea. 16:54 Abdomen/GI: Positive for abdominal pain, nausea, constipation, rectal bleeding, Bright red blood per rectum, Negative for abdominal distension, anorexia, dysphagia, hematemesis, black/tarry stool. Exam: 16:54 Constitutional: This is a well developed, well nourished patient who is awake, alert, kdr and in no acute distress. Head/Face: Normocephalic, atraumatic. Eyes: Pupils equal round and reactive to light, extra-ocular motions intact. Lids and lashes normal. Conjunctiva and sclera are non-icteric and not injected. Cornea within normal limits. Periorbital areas with no swelling, redness, or edema. Neck: Trachea midline, no thyromegaly or masses palpated, and no cervical lymphadenopathy. Supple, full range of motion without nuchal rigidity, or vertebral point tenderness. No Meningismus. Chest/axilla: Normal chest wall appearance and motion. Nontender with no deformity. No lesions are appreciated. Cardiovascular: Regular rate and rhythm with a normal S1 and S2. No gallops, murmurs, or rubs. Normal PMI, no JVD. No pulse deficits. Respiratory: Lungs have equal breath sounds bilaterally, clear to auscultation and percussion. No rales, rhonchi or wheezes noted. No increased work of breathing, no retractions or nasal flaring. Back: No spinal tenderness. No costovertebral tenderness. Full range of motion. Skin: Warm, dry with normal turgor. Normal color with no rashes, no lesions, and no evidence of cellulitis. MS/ Extremity: Pulses equal, no cyanosis. Neurovascular intact. Full, normal range of motion. Neuro: Awake and alert, GCS 15, oriented to person, place, time, and situation. Cranial nerves II-XII grossly intact. Motor strength 5/5 in all extremities. Sensory grossly intact. Cerebellar exam normal. Normal gait. Psych: Awake, alert, with orientation to person, place and time. Behavior, mood, and affect are within normal limits. 16:54 Abdomen/GI: Inspection: obese Bowel sounds: active, diminished, in all quadrants, Palpation: soft, mild abdominal tenderness, in the right lower quadrant. Vital Signs: 13:30 BP 129 / 86; Pulse 97; Resp 20 S; Temp 97.8(O); Pulse Ox 91% on R/A; Weight 157.5 kg aa5 (M); Height 5 ft. 3 in. (R); 14:40 BP 115 / 76; Pulse 93; Resp 22 S; Pulse Ox 91% on 3 lpm NC; kc6 13:30 Body Mass Index 61.51 (157.50 kg, 160.02 cm) aa5 MDM: 15:33 Patient medically screened. kdr 16:54 Data reviewed: vital signs, nurses notes, lab test result(s), radiologic studies. ED kdr course: Patient was stable in the ED and improved with the interventions given. She was happy with the care provided plan for discharge and follow-up on the prescriptions for stool softeners. She understood the instructions given that she needed to aggressively manage her bowel consistency. Further that it was better to have a little bit more loose stools than the constipation she has had. The family and patient understood the instructions and agreed to do the best to comply. Patient was discharged in good condition and happy with the care provided the plan for discharge and follow-up. 05/18 13:35 Order name: Basic Metabolic Panel; Complete Time: 15:05 [facility] 05/18 13:35 Order name: CBC with Diff; Complete Time: 15: [facility] 05/18 13:35 Order name: LFT's; Complete Time: 15: [facility] 05/18 13:35 Order name: Magnesium; Complete Time: 15: [facility] 05/18 13:35 Order name: NT PRO-BNP; Complete Time: 15: [facility] 05/18 13:35 Order name: Troponin HS; Complete Time: 15: [facility] 05/18 13:35 Order name: XRAY Chest (1 view); Complete Time: 15:05 [facility] 05/18 13:53 Order name: CT Abd/Pelvis - IV Contrast Only; Complete Time: 15:05 [facility] 05/18 13:35 Order name: EKG; Complete Time: 13:36 [facility] 05/18 13:35 Order name: Cardiac monitoring; Complete Time: 13:44 [facility] 05/18 13:35 Order name: EKG - Nurse/Tech; Complete Time: 13:44 [facility] 05/18 13:35 Order name: IV Saline Lock; Complete Time: 13:44 [facility] 05/18 13:35 Order name: Labs collected and sent; Complete Time: 13:44 [facility] 05/18 13:35 Order name: O2 Per Protocol; Complete Time: :44 [facility] 05/18 13:35 Order name: O2 Sat Monitoring; Complete Time: :44 [facility] 05/18 14:00 Order name: Labs - recollect needed: recollect light green top; Complete Time: 14:13 bd Administered Medications: 15:23 Drug: Bisacodyl [place] Enema (10 mg/30mL) 10 mg Route: TX; mb9 15:36 Follow up: Response: No adverse reaction mb9 15:32 Drug: Magnesium Citrate PO Liquid 300 ml Route: PO; mb9 15:36 Follow up: Response: No adverse reaction mb9 Disposition Summary: 05/18/23 15:33 Discharge Ordered Location: Home kdr Problem: an acute exacerbation kdr Symptoms: have improved kdr Condition: Stable kdr Diagnosis - Lower abdominal pain, unspecified kdr - Constipation kdr Followup: kdr - With: Private Physician - When: 2 - 3 days - Reason: If symptoms return, Further diagnostic work-up, Recheck today's complaints, Continuance of care, Re-evaluation by your physician Discharge Instructions: - Discharge Summary Sheet kdr - Abdominal Pain, Adult kdr - Constipation, Adult, [id number] kdr Forms: - Medication Reconciliation Form kdr - Thank You Letter kdr - Patient Portal Instructions kdr Prescriptions: - Dulcolax (bisacodyl) 5 mg Oral tablet, delayed release (enteric coated) - take 2 tablet by ORAL route daily As needed; 20 tablet; Refills: 0, Product kdr Selection Permitted - Lactulose 10 gram/15 mL Oral Solution - take 30 milliliters by ORAL route once daily; 300 milliliter; Refills: 0, kdr Product Selection Permitted Signatures: Dispatcher [employer] EDMS Dirrim, Destiny bd Rittger, Matt, MD MD kdr Cristine Tripp RN RN aa5 Collette, Flory Antoine RN RN mb9
[2023-05-18 16:07] VITALS: TEMP 97.8; O2SAT 91
[2023-05-18 16:09] VITALS: BP 115/76
== END 2023-05-18 15:54 | disposition home or self-care (01) ==
LOC: ER 13:24
DX: K59.00 Constipation, unspecified (principal); R07.9 Chest pain, unspecified; Z88.1 Allergy status to other antibiotic agents; Z88.8 Allergy status to other drugs, medicaments and biological substances; Z91.018 Allergy to other foods
CPT/HCPCS: 85025; 80048; 36415; 83735; 80076; 84484; 83880; 74177; 71045; Q9967; 93005

== ENCOUNTER 2023-05-18 20:37 | Emergency (ER) | payer OTHER ==
--- OUTSIDE RECORDS SUMMARY | 2023-05-18 20:50 | XMS REPORT | Clinical Summary ---
:1965 Author Organization [facility] MD [facility] Address [address] [place] [address] Care Team Providers Name Role Phone Bina Obando MD Unavailable Kenya Agarwal MD Primary Care Provider Trent Irving MD Unavailable Randall Sheriff MD Unavailable Vignesh Waddell MD Unavailable Naa Miller MD [facility] Rafael Rosas MD Unavailable [...] procedure Metoclopramide Hcl Other (See 10/16/2022 Comments) [place] Juice Nausea And Low 04/18/2021 Vomiting, GI [...] Active (Easy Comfort Pen insulin 4 times [place]) 31 gauge x a day 03/16" ndleIndications: [...] basilic veins, Thrombosis of left cephalic vein, buttermaker use of anticoagulant gabapentin (NEURONTIN) TAKE 1 [...] 32 gauge x 532" (Reorder) ndle rizatriptan (MAXALT-BULK FOLDER) 0 08/25/202212/30 4 Discontinued 5 mg disintegrating [...] WITH MEALS Active Problems Problem Noted Date USP use of anticoagulant 03/31/2023 Acute thrombosis of [...] to antineoplastic therapy 01/11/2023 Swallowing painful 01/11/2023 buttermaker current use of systemic steroid 12/10/2022 Current use of insulin 12/10/2022 Adverse effect of glucocorticoids and synthetic analog ues 12/10/2022 Headache 12/09/2022 Adenoid cystic carcinoma of nasopharynx, 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: Stage WINDY (cT4, cN0, cM0) - Unsigned Essential hypertension 02/15/2020 Gastroesophageal reflux disease 07/28/2018 Other hyperlipidemia 07/28/2018 Severe protein-calorie malnutrition Encounters Date Type Specialty Care Team Description 05/18/2023 Telephone Endocrinology Bee Andrade MD Needle, Pamela A, RN 05/11/2023 Telephone Endocrinology Marily Garcia APRN 05/02/2023 Telephone Endocrinology No Andrade MD 04/22/2023 Follow-Up Thoracic Medicine Duy Rosario MD carcinoma of nasopharynx, NO S 04/22/2023 Follow-Up Radiation Oncology Winter Luu c ystic MD Gini carcinoma of nasopharynx, NO S 04/22/2023 Ancillary Procedure Radiology Winter Luu MD carcinoma of nasopharynx, NO S 04/22/2023 Travel 04/09/2023 Refill Pain Medicine Martha Chronic pain JCARLOS Tracey 04/08/2023 Refill Pain Medicine Evan Chronic pain Miguel Fernandez MD 03/31/2023 Office Visit Hematology Oo, MD Rosana buttermaker use of anticoagulant (Primary Dx); Adenoid cystic [...] Endocrinology Angela Lopes, Type 2 diabet es SNUBBER mellitus withou t complication (P rimary Dx) 03/18/2023 Telephone Oncology Vaibhav Rosario MD 03/16/2023 Orders Only Oncology Lemuel, Adenoid cystic Lorena carcinoma of Kayla, SNUBBER nasopharynx, 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) 03/12/2023 Nutrition Nutrition Kenya Agarwal MD Martin, Cathy A, ADAM 03/11/2023 Infusion Infusion Services Lemuel, Adenoid cy stic [place]orena carcinoma of Kayla, SNUBBER nasopharynx, 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) 03/11/2023 Follow-Up Oncology Hdez, Adenoid cystic Lorena carcinoma of Kayla, SNUBBER nasopharynx, 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) 03/11/2023 Travel 03/09/2023 Telephone Oncology Lorena Hdez, SNUBBER 03/04/2023 Nutrition Nutrition Kenya Agarwal MD Martin, Cathy A, ADAM 03/04/2023 Orders Only Oncology Lorena Hdez, SNUBBER 03/04/2023 Telephone Thoracic Medicine Tita Kwon RN 03/04/2023 Orders Only Pain Medicine Evan, Cancer associa kaylie Fernandez MD pain (Primary Dx) 03/03/2023 Follow-Up Thoracic Medicine Kenny Power, Adenoid cy stic carcinoma of nasopharynx, NOS; MD Vaibhav Deep venous thr ombosis <Unspecified side> 03/03/2023 Refill Pain Medicine Tyrell, Chronic pain Anumol, SNUBBER 03/03/2023 Travel 03/02/2023 Refill Pain Medicine Tyrell, Chronic pain Anumol, SNUBBER 02/26/2023 Telemedicine Pain Medicine Evan, Chronic pain ( Primary Miguel Fernandez MD Dx) 02/25/2023 Nutrition Nutrition Kenya Agarwal MD Martin, Cathy A, RD 02/19/2023 Telephone Radiation Oncology Anthony Lancaster RN 02/18/2023 Nutrition Nutrition Kenya Agarwal MD Martin, Cathy A, ADAM 02/12/2023 Clinical [...] Speech Pathology Charla Solis Oropharynge jessica Eckert, [facility] dysphagia (Prim cristina Dx) 02/08/2023 Hospital Encounter Radiation Oncology Kenya Agarwal MD 02/06/2023 Travel 02/05/2023 Hospital Encounter GIM/Phase 1 Deneen Guevara Intractab le nausea and vomiting (Primary Dx); - Type 2 diabetes mellitus with hyperglyce moncho; 02/16/2023 Wattana, Swallowing pain ful; MD Felisa Dyspnea; Brooks, Adenoid cystic carcinoma of nasopharynx, NOS; MD Romana Chronic pain; Amanda Proctor, Deep venous th rombosis <Unspecified side>; Type 2 diabetes mellitus without complic ation; Estella, Son Shortness of br MD Bridget Alford [...] Dx) 02/03/2023 Orders Only Oncology Lorena Hdez, SNUBBER 02/03/2023 Travel 02/02/2023 Travel 01/31/2023 Refill Internal Medicine Rohan, Type 2 juliet ryan Peñaloza, mellitus with SNUBBER hyperglycemia (Primary Dx) 01/28/2023 Telephone Radiation Oncology Felisa Castillo RN 01/28/2023 Orders Only Oncology Lorena Hdez, SNUBBER 01/26/2023 Hospital Encounter Uro/Ortho/GI Wattana, Chronic p [...] Type 2 diabetes mellitus without complic ation; [place] Hematochezia Rashaun Wiley MD 01/26/2023 Travel 01/26/2023 [...] Adenoid cy stic Lorena carcinoma of Kayla, SNUBBER nasopharynx, 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) 01/21/2023 Follow-Up Thoracic Medicine Kenny Power Adenoid cy rain Esposito MD carcinoma of nasopharynx, 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) 01/21/2023 Travel 01/20/2023 Consult Pain Medicine Williams, buttermaker cur rent use of opiate analgesic (Primary Dx); Rogerio, Adenocarcinoma of nasopharynx; 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; Neoplasm relate d pain (acute) (chronic) 01/20/2023 Documentation Pain Medicine Randall Ferrer 01/20/2023 Travel 01/19/2023 Clinical Support Radiation Oncology Winter Luu MD 01/19/2023 Travel 01/14/2023 Orders Only Speech Pathology Gorman, Dysphagia, Mukund oropharyngeal p enrike Cervantes, (Primary Dx) [facility] 01/12/2023 Refill Internal Medicine Orlin Hypertensi on [...] of glucocorticoids and synthetic analogues, subsequent encounter; USP curre nt use of systemic steroid; Hyperlipidemia, [...] Adenoid cy stic Lorena carcinoma of Kayla, SNUBBER nasopharynx, 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) 01/07/2023 Follow-Up Oncology Hdez, Adenoid cystic Lorena carcinoma of Kayla, SNUBBER nasopharynx, 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) 01/07/2023 Travel 01/06/2023 Infusion Infusion Services Hdez, Adenoid cy stic Lorena carcinoma of Kayla, SNUBBER nasopharynx, 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) 01/06/2023 Travel 01/05/2023 Travel 01/04/2023 Clinical Support Radiation Oncology Winter Luu carcinoma frankie Rubalcava MD nasopharynx (Pr imary Dx) 01/04/2023 Infusion Infusion Services Hdez, Adenoid cy stic Lorena carcinoma of Kayla, SNUBBER nasopharynx, 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) 01/04/2023 Travel 01/01/2023 Infusion Infusion Services Hdez, Adenoid cy stic Lorena carcinoma of Kayla, SNUBBER nasopharynx, 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) 01/01/2023 Follow-Up Thoracic Medicine Kenny Power Adenoid cy stic carcinoma of nasopharynx, NOS (Primary Dx); MD Vaibhav Neoplasm relate d pain (acute) (chronic) 01/01/2023 Refill Pain Medicine Geo, Neoplasm relat ed pain Brittni Benjamin RN (acute) (chroni c) 01/01/2023 Travel 12/31/2022 Telephone Thoracic Medicine Carnew, Pain med r equest and Tita Mayorga, nausea - missed RN treatment 12/31/2022 Orders Only Oncology Hdez, Adenoid cystic Lorena carcinoma of Kayla, SNUBBER nasopharynx, 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) 12/30/2022 Hospital [...] Adenoid cy stic Lorena carcinoma of Kayla, SNUBBER nasopharynx, 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) 12/24/2022 Follow-Up [...] Hdez, Adenoid cystic Lorena carcinoma of Kayla, SNUBBER nasopharynx, 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) 12/18/2022 Orders Only Radiation Oncology Wheeling, LindyBALJINDER Guerra 12/18/2022 Orders Only Radiation Oncology Lan, Adenocarc inoma of Lindy nasopharynx BALJINDER Sotelo 12/17/2022 Clinical Support Radiation Oncology Kenya Agarwal MD Lawrence, Holly D, RN 12/17/2022 Documentation Radiation Oncology Winter Luu MD 12/17/2022 Documentation Radiation Oncology Winter Luu MD 12/17/2022 Documentation Radiation Oncology Winter Luu MD 12/17/2022 Orders Only Oncology Hdez, Adenoid cystic Lorena carcinoma of Kayla, SNUBBER nasopharynx, 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) 12/17/2022 Travel 12/17/2022 Orders Only Radiation Oncology Winter Luu MD 12/16/2022 Orders Only Radiation Oncology Winter Luu Adenocarc inoma of MD iGni nasopharynx (Pr imary Dx) 12/16/2022 Telephone Radiation [...] 12/10/2022 Orders Only Dental Oncology Martínez, Encounter rani [...] Lindy Montenegro PA 12/08/2022 Orders Only Oncology Lemuel Adenoid cystic Lorena carcinoma of Kayla, SNUBBER nasopharynx, 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) 12/05/2022 Telephone Radiation Oncology Winter Luu MD 12/05/2022 Orders Only Radiation Oncology Winter Luu Adenocarc inoAbbie MD nasopharynx (Pr imary Dx) 12/04/2022 Hospital Encounter Matthew Benitez MD Hess, Jennifer Leigh, SNUBBER 12/04/2022 Telephone Head and Neck Antonella, Surgery Red Costa, SNUBBER 12/04/2022 Multidisciplinary Visit Head and Neck Antonella, Surgery Red Costa, SNUBBER 12/04/2022 Telephone Radiation Oncology Maria Luz Cochran RN 12/02/2022 Orders Only Radiation Oncology Melia Montenegrocarayan inoma of Lindy nasopharynx (Pr imBALJINDER Mendez Dx) 12/02/2022 Orders Only Radiation Oncology Winter Luu Adenocarc inoma of MD Gini nasopharynx (Pr imary Dx) 11/30/2022 Ancillary Procedure Radiology Hdez, Adenocar cinoma of Lorena nasopharynx Kayla, SNUBBER 11/30/2022 Travel 11/27/2022 Ancillary Procedure Radiology Wheeling, Adenocar cinoma of nasopharynx; Lindy Malignant neopl [...] of Surgery Red Costa, nasopharynx (Pr imary SNUBBER Dx) 11/12/2022 Orders Only Head and Neck Yinka, Surgery BALJINDER Branch 11/12/2022 Orders Only Head and Neck McAnulty, Adenocarcinoma of nasopharynx (Primary Dx); Surgery Red Costa, 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 SNUBBER after 05/18/2022 Surgical History Surgery Date Site/Laterality Comments APPENDECTOMY [id number] COLONOSCOPY [id number] CHOLECYSTECTOMY [id number] KNEE ARTHROPLASTY Right SHOULDER SURGERY 050@2010 Left UPPER GASTROINTESTINAL ENDOSCOPY [id number] SECTION, CLASSIC 11/01/1984 - 10/31/1985 PARTIAL HYSTERECTOMY 03/01/2012 - 03/31/2012 MYRINGOTOMY WITH ASPIRATION AND 11/01/2019 - 10/31/2020 INSERTION PE TUBES SLEEVE GASTROPLASTY N/A Medical History Medical History Date Comments Hypertension [id number] Hyperlipidemia [id number] Allergic rhinitis [id number] Fatty liver 23142179 Gastric reflux 15037634 Gastric ulcer [id number] Crohn's disease [id number] Gout [id number] Type 2 diabetes mellitus with 0114257 hyperglycemia Anxiety 48874649 Chronic obstructive pulmonary disease On home supplemental [...] at Date Recorded Female 11/12/2022 2:07 PM [employer] Job Start Date Occupation Industry Not on [...] Treatment Date Type Specialty Care Team Description 06/17/2023 Treatment Speech Pathology Monico Poole MD [address] [place] [address] Sheba Olivarez, [facility] [address] [facility] [address] [place] [address] 06/21/2023 Telephone Endocrinology Angela Lopes AP RN [address] [place] [address] Freya Kimball RN [address] [place] [address] 07/22/2023 Appointment Lab Angela Lopes AP RN [facility] [place], [place] [address] (Wo rk) 07/22/2023 Appointment Ophthalmology Suzanne Mcgrath MD [address] [place], [place] [address] (Wo rk) 07/23/2023 Lab Lab Lindy Montenegro PA [address] [place], [place] [address] (Wo rk) 07/27/2023 Ancillary Procedure Radiology Lindy Montenegro PA [address] [place], [place] [address] (Wo rk) 07/27/2023 Follow-Up Head and Neck Surgery Sheri Agarwal MD [address] [place], [place] [address] (Wo rk) 07/28/2023 Telemedicine Endocrinology No Andrade MD [address] [place], [place] [address] (Wo rk) Health Maintenance Due Date Last Done Comments COVID-19 Vaccination (4 - Booster 09/05/2021 07/11/2021, , for Moderna series) 12/03/2020 Medical Devices Implanted Type Area [employer] Administrator Device Shelf Model / Identifier Expiration Date [...] the results section. CONTROLLED SUBSTANCE Routine 01/20/2023 USP current Re sults for MONITORING PANEL, URINE [...] Adenoid cystic Result s for 8:28 AM [employer] carcinoma of this procedure nasopharynx, NOS are in the results section. Results CBC Routine 01/07/2023 Adenoid cystic Results for 8:28 AM [employer] carcinoma of this procedure nasopharynx, NOS are in the results section. FRACTIONATED BILIRUBIN Routine 01/07/2023 Adenoid cystic Res ults for 8:28 AM [employer] carcinoma of this procedure nasopharynx, NOS are in the results section. TOTAL PROTEIN Routine 01/07/2023 Adenoid cystic Results for 8:28 AM [employer] carcinoma of this procedure nasopharynx, NOS are in the results section. ASPARTATE AMINOTRANSFERASE Routine 01/07/2023 Adenoid cystic Results for 8:28 AM [employer] carcinoma of this procedure nasopharynx, NOS are in the results section. ALANINE AMINOTRANSFERASE Routine 01/07/2023 Adenoid cystic R esults for 8:28 AM [employer] carcinoma of this procedure nasopharynx, NOS are in the results section. ALKALINE PHOSPHATASE Routine 01/07/2023 Adenoid cystic Resul ts for 8:28 AM [employer] carcinoma of this procedure nasopharynx, NOS are in the results section. ALBUMIN LEVEL Routine 01/07/2023 Adenoid cystic Results for 8:28 AM [employer] carcinoma of this procedure nasopharynx, NOS are in the results section. CALCIUM LEVEL TOTAL Routine 01/07/2023 Adenoid cystic Result s for 8:28 AM [employer] carcinoma of this procedure nasopharynx, NOS are in the results section. .GLOMERULAR FILTRATION Routine 01/07/2023 Adenoid cystic Res ults for RATE 8:28 AM [employer] carcinoma of this procedure nasopharynx, NOS are in the results section. SERUM CREATININE Routine 01/07/2023 Adenoid cystic Results f or 8:28 AM [employer] carcinoma of this procedure nasopharynx, NOS are in the results section. ELECTROLYTE PANEL Routine 01/07/2023 Adenoid cystic Results for 8:28 AM [employer] carcinoma of this procedure nasopharynx, NOS are in the results section. BLOOD UREA NITROGEN Routine 01/07/2023 Adenoid cystic Result s for 8:28 AM [employer] carcinoma of this procedure nasopharynx, NOS are in the results section. GLUCOSE LEVEL Routine 01/07/2023 Adenoid cystic Results for 8:28 AM [employer] carcinoma of this procedure nasopharynx, NOS are in the results section. PHOSPHORUS LEVEL Routine 01/07/2023 Adenoid cystic Results f or 8:28 AM [employer] carcinoma of this procedure nasopharynx, NOS are in the results section. MAGNESIUM LEVEL Routine 01/07/2023 Adenoid cystic Results fo r 8:28 AM [employer] carcinoma of this procedure nasopharynx, NOS are in the results section. COMPLETE BLOOD COUNT W/ Routine 01/07/2023 Adenoid cystic DIFFERENTIAL 8:28 AM [employer] carcinoma of nasopharynx, NOS COMPREHENSIVE METABOLIC Routine 01/07/2023 Adenoid cystic PANEL 8:28 AM [employer] carcinoma of nasopharynx, NOS MANUAL DIFFERENTIAL Routine 01/01/2023 Adenoid cystic Result s for 8:26 AM [employer] carcinoma of this procedure nasopharynx, NOS are in the results section. Results CBC Routine 01/01/2023 Adenoid cystic Results for 8:26 AM [employer] carcinoma of this procedure nasopharynx, NOS are in the results section. FRACTIONATED BILIRUBIN Routine 01/01/2023 Adenoid cystic Res ults for 8:26 AM [employer] carcinoma of this procedure nasopharynx, NOS are in the results section. TOTAL PROTEIN Routine 01/01/2023 Adenoid cystic Results for 8:26 AM [employer] carcinoma of this procedure nasopharynx, NOS are in the results section. ASPARTATE AMINOTRANSFERASE Routine 01/01/2023 Adenoid cystic Results for 8:26 AM [employer] carcinoma of this procedure nasopharynx, NOS are in the results section. ALANINE AMINOTRANSFERASE Routine 01/01/2023 Adenoid cystic R esults for 8:26 AM [employer] carcinoma of this procedure nasopharynx, NOS are in the results section. ALKALINE PHOSPHATASE Routine 01/01/2023 Adenoid cystic Resul ts for 8:26 AM [employer] carcinoma of this procedure nasopharynx, NOS are in the results section. ALBUMIN LEVEL Routine 01/01/2023 Adenoid cystic Results for 8:26 AM [employer] carcinoma of this procedure nasopharynx, NOS are in the results section. CALCIUM LEVEL TOTAL Routine 01/01/2023 Adenoid cystic Result s for 8:26 AM [employer] carcinoma of this procedure nasopharynx, NOS are in the results section. .GLOMERULAR FILTRATION Routine 01/01/2023 Adenoid cystic Res ults for RATE 8:26 AM [employer] carcinoma of this procedure nasopharynx, NOS are in the results section. SERUM CREATININE Routine 01/01/2023 Adenoid cystic Results f or 8:26 AM [employer] carcinoma of this procedure nasopharynx, NOS are in the results section. ELECTROLYTE PANEL Routine 01/01/2023 Adenoid cystic Results for 8:26 AM [employer] carcinoma of this procedure nasopharynx, NOS are in the results section. BLOOD UREA NITROGEN Routine 01/01/2023 Adenoid cystic Result s for 8:26 AM [employer] carcinoma of this procedure nasopharynx, NOS are in the results section. GLUCOSE LEVEL Routine 01/01/2023 Adenoid cystic Results for 8:26 AM [employer] carcinoma of this procedure nasopharynx, NOS are in the results section. PHOSPHORUS LEVEL Routine 01/01/2023 Adenoid cystic Results f or 8:26 AM [employer] carcinoma of this procedure nasopharynx, NOS are in the results section. MAGNESIUM LEVEL Routine 01/01/2023 Adenoid cystic Results fo r 8:26 AM [employer] carcinoma of this procedure nasopharynx, NOS are in the results section. COMPLETE BLOOD COUNT W/ Routine 01/01/2023 Adenoid cystic DIFFERENTIAL 8:26 AM [employer] carcinoma of nasopharynx, NOS COMPREHENSIVE METABOLIC Routine 01/01/2023 Adenoid cystic PANEL 8:26 AM [employer] carcinoma of nasopharynx, NOS [place] V[employer]UAL [employer], Routine 12/29/2022 Sixth (abducent) R esults for INTERMEDIATE - OU - BOTH 10:51 AM [employer] nerve palsy, lef t this procedure EYES eye are in the results section. OCT, OPTIC NERVE - OU - Routine 12/29/2022 Sixth (abducent) Results for BOTH EYES 10:43 AM [employer] nerve palsy, left this proce dure eye are in the results section. OCT, RETINA - OU - BOTH Routine 12/29/2022 Sixth (abducent) Results for EYES 10:43 AM [employer] nerve palsy, left this proce dure eye are in the results section. MANUAL DIFFERENTIAL Routine 12/24/2022 Adenoid cystic Result s for 9:16 AM [employer] carcinoma of this procedure nasopharynx, NOS are in the results section. Results CBC Routine 12/24/2022 Adenoid cystic Results for 9:16 AM [employer] carcinoma of this procedure nasopharynx, NOS are in the results section. FRACTIONATED BILIRUBIN Routine 12/24/2022 Adenoid cystic Res ults for 9:16 AM [employer] carcinoma of this procedure nasopharynx, NOS are in the results section. TOTAL PROTEIN Routine 12/24/2022 Adenoid cystic Results for 9:16 AM [employer] carcinoma of this procedure nasopharynx, NOS are in the results section. ASPARTATE AMINOTRANSFERASE Routine 12/24/2022 Adenoid cystic Results for 9:16 AM [employer] carcinoma of this procedure nasopharynx, NOS are in the results section. ALANINE AMINOTRANSFERASE Routine 12/24/2022 Adenoid cystic R esults for 9:16 AM [employer] carcinoma of this procedure nasopharynx, NOS are in the results section. ALKALINE PHOSPHATASE Routine 12/24/2022 Adenoid cystic Resul ts for 9:16 AM [employer] carcinoma of this procedure nasopharynx, NOS are in the results section. ALBUMIN LEVEL Routine 12/24/2022 Adenoid cystic Results for 9:16 AM [employer] carcinoma of this procedure nasopharynx, NOS are in the results section. CALCIUM LEVEL TOTAL Routine 12/24/2022 Adenoid cystic Result s for 9:16 AM [employer] carcinoma of this procedure nasopharynx, NOS are in the results section. .GLOMERULAR FILTRATION Routine 12/24/2022 Adenoid cystic Res ults for RATE 9:16 AM [employer] carcinoma of this procedure nasopharynx, NOS are in the results section. SERUM CREATININE Routine 12/24/2022 Adenoid cystic Results f or 9:16 AM [employer] carcinoma of this procedure nasopharynx, NOS are in the results section. ELECTROLYTE PANEL Routine 12/24/2022 Adenoid cystic Results for 9:16 AM [employer] carcinoma of this procedure nasopharynx, NOS are in the results section. BLOOD UREA NITROGEN Routine 12/24/2022 Adenoid cystic Result s for 9:16 AM [employer] carcinoma of this procedure nasopharynx, NOS are in the results section. GLUCOSE LEVEL Routine 12/24/2022 Adenoid cystic Results for 9:16 AM [employer] carcinoma of this procedure nasopharynx, NOS are in the results section. PHOSPHORUS LEVEL Routine 12/24/2022 Adenoid cystic Results f or 9:16 AM [employer] carcinoma of this procedure nasopharynx, NOS are in the results section. MAGNESIUM LEVEL Routine 12/24/2022 Adenoid cystic Results fo r 9:16 AM [employer] carcinoma of this procedure nasopharynx, NOS are in the results section. COMPLETE BLOOD COUNT W/ Routine 12/24/2022 Adenoid cystic DIFFERENTIAL 9:16 AM [employer] carcinoma of nasopharynx, NOS COMPREHENSIVE METABOLIC Routine 12/24/2022 Adenoid cystic PANEL 9:16 AM [employer] carcinoma of nasopharynx, NOS COVID-19 (SARS-COV-2) PCR Routine 12/23/2022 Suspected COVID -19 Results for - ASYMPTOMATIC - MC 12:01 PM [employer] this pro cedure are in the results section. POC GLUCOSE SCREEN Routine 12/15/2022 Results f or 6:07 PM [employer] this procedure are in the results section. POC GLUCOSE SCREEN Routine 12/15/2022 Results f or 12:52 PM [employer] this procedure are in the results section. OCT, OPTIC NERVE - OU - Routine 12/15/2022 Diplopia Resu lts for BOTH EYES 10:37 AM [employer] this procedure are in the results section. OCT, RETINA - OU - BOTH Routine 12/15/2022 Diplopia Resu lts for EYES 10:37 AM [employer] this procedure are in the results section. FUNDUS PHOTOS - OU - BOTH Routine 12/15/2022 Diplopia Re sults for EYES 10:37 AM [employer] this procedure are in the results section. 3D DENTAL IMAGING (ICAT) Routine 12/15/2022 Encounter for Re sults for 8:42 AM [employer] observation for this procedu re other suspected are in the disease ruled out results section. POC GLUCOSE SCREEN Routine 12/15/2022 Results f or 7:19 AM [employer] this procedure are in the results section. POC GLUCOSE SCREEN Routine 12/15/2022 Results f or 6:12 AM [employer] this procedure are in the results section. MANUAL DIFFERENTIAL AM 12/15/2022 Results for 3:44 AM [employer] this procedure are in the results section. Results CBC AM 12/15/2022 Results for 3:44 AM [employer] this procedure are in the results section. CALCIUM LEVEL TOTAL AM 12/15/2022 Results for 3:44 AM [employer] this procedure are in the results section. .GLOMERULAR FILTRATION AM 12/15/2022 Resul ts for RATE 3:44 AM [employer] this procedure are in the results section. SERUM CREATININE AM 12/15/2022 Results for 3:44 AM [employer] this procedure are in the results section. ELECTROLYTE PANEL AM 12/15/2022 Results fo r 3:44 AM [employer] this procedure are in the results section. BLOOD UREA NITROGEN AM 12/15/2022 Results for 3:44 AM [employer] this procedure are in the results section. GLUCOSE LEVEL AM 12/15/2022 Results for 3:44 AM [employer] this procedure are in the results section. COMPLETE BLOOD COUNT W/ AM 12/15/2022 DIFFERENTIAL 3:44 AM [employer] PHOSPHORUS LEVEL AM 12/15/2022 Results for 3:44 AM [employer] this procedure are in the results section. MAGNESIUM LEVEL AM 12/15/2022 Results for 3:44 AM [employer] this procedure are in the results section. BASIC METABOLIC PANEL, AM 12/15/2022 CALCIUM TOTAL 3:44 AM [employer] POC GLUCOSE SCREEN Routine 12/15/2022 Results f or 2:28 AM [employer] this procedure are in the results section. POC GLUCOSE SCREEN Routine 12/14/2022 Results f or 10:04 PM [employer] this procedure are in the results section. POC GLUCOSE SCREEN Routine 12/14/2022 Results f or 5:26 PM [employer] this procedure are in the results section. POC GLUCOSE SCREEN Routine 12/14/2022 Results f or 4:14 PM [employer] this procedure are in the results section. FL MODIFIED BARIUM SWALLOW Routine 12/14/2022 R esults for W SPEECH 2:37 PM [employer] this procedure are in the results section. POC GLUCOSE SCREEN Routine 12/14/2022 Results f or 12:08 PM [employer] this procedure are in the results section. GENERAL LABORATORY ADD ON Routine 12/14/2022 Re sults for TEST 8:03 AM [employer] this procedure are in the results section. POC GLUCOSE SCREEN Routine 12/14/2022 Results f or 7:25 AM [employer] this procedure are in the results section. POC GLUCOSE SCREEN Routine 12/14/2022 Results f or 5:55 AM [employer] this procedure are in the results section. FRACTIONATED BILIRUBIN AM 12/14/2022 Resul ts for 4:46 AM [employer] this procedure are in the results section. TOTAL PROTEIN AM 12/14/2022 Results for 4:46 AM [employer] this procedure are in the results section. ASPARTATE AMINOTRANSFERASE AM 12/14/2022 R esults for 4:46 AM [employer] this procedure are in the results section. ALANINE AMINOTRANSFERASE AM 12/14/2022 Res ults for 4:46 AM [employer] this procedure are in the results section. ALKALINE PHOSPHATASE AM 12/14/2022 Results for 4:46 AM [employer] this procedure are in the results section. ALBUMIN LEVEL AM 12/14/2022 Results for 4:46 AM [employer] this procedure are in the results section. MANUAL DIFFERENTIAL AM 12/14/2022 Results for 4:46 AM [employer] this procedure are in the results section. Results CBC AM 12/14/2022 Results for 4:46 AM [employer] this procedure are in the results section. CALCIUM LEVEL TOTAL AM 12/14/2022 Results for 4:46 AM [employer] this procedure are in the results section. .GLOMERULAR FILTRATION AM 12/14/2022 Resul ts for RATE 4:46 AM [employer] this procedure are in the results section. SERUM CREATININE AM 12/14/2022 Results for 4:46 AM [employer] this procedure are in the results section. ELECTROLYTE PANEL AM 12/14/2022 Results fo r 4:46 AM [employer] this procedure are in the results section. BLOOD UREA NITROGEN AM 12/14/2022 Results for 4:46 AM [employer] this procedure are in the results section. GLUCOSE LEVEL AM 12/14/2022 Results for 4:46 AM [employer] this procedure are in the results section. COMPLETE BLOOD COUNT W/ AM 12/14/2022 DIFFERENTIAL 4:46 AM [employer] PHOSPHORUS LEVEL AM 12/14/2022 Results for 4:46 AM [employer] this procedure are in the results section. MAGNESIUM LEVEL AM 12/14/2022 Results for 4:46 AM [employer] this procedure are in the results section. BASIC METABOLIC PANEL, AM 12/14/2022 CALCIUM TOTAL 4:46 AM [employer] POC GLUCOSE SCREEN Routine 12/14/2022 Results f or 1:36 AM [employer] this procedure are in the results section. POC GLUCOSE SCREEN Routine 12/13/2022 Results f or 9:56 PM [employer] this procedure are in the results section. POC GLUCOSE SCREEN Routine 12/13/2022 Results f or 6:31 PM [employer] this procedure are in the results section. POC GLUCOSE SCREEN Routine 12/13/2022 Results f or 1:24 PM [employer] this procedure are in the results section. POC GLUCOSE SCREEN Routine 12/13/2022 Results f or 8:02 AM [employer] this procedure are in the results section. POC GLUCOSE SCREEN Routine 12/13/2022 Results f or 5:58 AM [employer] this procedure are in the results section. POC GLUCOSE SCREEN Routine 12/13/2022 Results f or 3:24 AM [employer] this procedure are in the results section. MANUAL DIFFERENTIAL AM 12/13/2022 Results for 3:12 AM [employer] this procedure are in the results section. Results CBC AM 12/13/2022 Results for 3:12 AM [employer] this procedure are in the results section. CALCIUM LEVEL TOTAL AM 12/13/2022 Results for 3:12 AM [employer] this procedure are in the results section. .GLOMERULAR FILTRATION AM 12/13/2022 Resul ts for RATE 3:12 AM [employer] this procedure are in the results section. SERUM CREATININE AM 12/13/2022 Results for 3:12 AM [employer] this procedure are in the results section. ELECTROLYTE PANEL AM 12/13/2022 Results fo r 3:12 AM [employer] this procedure are in the results section. BLOOD UREA NITROGEN AM 12/13/2022 Results for 3:12 AM [employer] this procedure are in the results section. GLUCOSE LEVEL AM 12/13/2022 Results for 3:12 AM [employer] this procedure are in the results section. COMPLETE BLOOD COUNT W/ AM 12/13/2022 DIFFERENTIAL 3:12 AM [employer] PHOSPHORUS LEVEL AM 12/13/2022 Results for 3:12 AM [employer] this procedure are in the results section. MAGNESIUM LEVEL AM 12/13/2022 Results for 3:12 AM [employer] this procedure are in the results section. BASIC METABOLIC PANEL, AM 12/13/2022 CALCIUM TOTAL 3:12 AM [employer] POC GLUCOSE SCREEN Routine 12/12/2022 Results f or 9:43 PM [employer] this procedure are in the results section. POC GLUCOSE SCREEN Routine 12/12/2022 Results f or 6:16 PM [employer] this procedure are in the results section. POC GLUCOSE SCREEN Routine 12/12/2022 Results f or 12:52 PM [employer] this procedure are in the results section. POC GLUCOSE SCREEN Routine 12/12/2022 Results f or 7:47 AM [employer] this procedure are in the results section. POC GLUCOSE SCREEN Routine 12/12/2022 Results f or 5:52 AM [employer] this procedure are in the results section. MANUAL DIFFERENTIAL AM 12/12/2022 Results for 4:30 AM [employer] this procedure are in the results section. Results CBC AM 12/12/2022 Results for 4:30 AM [employer] this procedure are in the results section. CALCIUM LEVEL TOTAL AM 12/12/2022 Results for 4:30 AM [employer] this procedure are in the results section. .GLOMERULAR FILTRATION AM 12/12/2022 Resul ts for RATE 4:30 AM [employer] this procedure are in the results section. SERUM CREATININE AM 12/12/2022 Results for 4:30 AM [employer] this procedure are in the results section. ELECTROLYTE PANEL AM 12/12/2022 Results fo r 4:30 AM [employer] this procedure are in the results section. BLOOD UREA NITROGEN AM 12/12/2022 Results for 4:30 AM [employer] this procedure are in the results section. GLUCOSE LEVEL AM 12/12/2022 Results for 4:30 AM [employer] this procedure are in the results section. COMPLETE BLOOD COUNT W/ AM 12/12/2022 DIFFERENTIAL 4:30 AM [employer] PHOSPHORUS LEVEL AM 12/12/2022 Results for 4:30 AM [employer] this procedure are in the results section. MAGNESIUM LEVEL AM 12/12/2022 Results for 4:30 AM [employer] this procedure are in the results section. BASIC METABOLIC PANEL, AM 12/12/2022 CALCIUM TOTAL 4:30 AM [employer] POC GLUCOSE SCREEN Routine 12/12/2022 Results f or 2:06 AM [employer] this procedure are in the results section. POC GLUCOSE SCREEN Routine 12/11/2022 Results f or 10:01 PM [employer] this procedure are in the results section. LACTIC ACID, VENOUS Timed Study 12/11/2022 Results for 9:50 PM [employer] this procedure are in the results section. LIPASE LEVEL STAT 12/11/2022 Results for 6:21 PM [employer] this procedure are in the results section. VENOUS BLOOD GAS STAT 12/11/2022 Results for 6:21 PM [employer] this procedure are in the results section. POC GLUCOSE SCREEN Routine 12/11/2022 Results f or 6:10 PM [employer] this procedure are in the results section. GENERAL LABORATORY ADD ON Routine 12/11/2022 Re sults for TEST 5:39 PM [employer] this procedure are in the results section. KETONE BODIES QUALITATIVE STAT 12/11/2022 Re sults for 5:19 PM [employer] this procedure are in the results section. POC GLUCOSE SCREEN Routine 12/11/2022 Results f or 4:51 PM [employer] this procedure are in the results section. LIPASE LEVEL STAT 12/11/2022 Results for 4:33 PM [employer] this procedure are in the results section. ELECTROLYTE PANEL STAT 12/11/2022 Results fo r 4:33 PM [employer] this procedure are in the results section. LACTIC ACID, VENOUS Timed Study 12/11/2022 Results for 4:33 PM [employer] this procedure are in the results section. POC GLUCOSE SCREEN Routine 12/11/2022 Results f or 3:34 PM [employer] this procedure are in the results section. POC CRITICAL Routine 12/11/2022 Results for 3:34 PM [employer] this procedure are in the results section. POC GLUCOSE SCREEN Routine 12/11/2022 Results f or 2:33 PM [employer] this procedure are in the results section. POC CRITICAL Routine 12/11/2022 Results for 2:33 PM [employer] this procedure are in the results section. POC GLUCOSE SCREEN Routine 12/11/2022 Results f or 12:35 PM [employer] this procedure are in the results section. POC GLUCOSE SCREEN Routine 12/11/2022 Results f or 8:14 AM [employer] this procedure are in the results section. LACTIC ACID, VENOUS Routine 12/11/2022 Results for 4:37 AM [employer] this procedure are in the results section. MANUAL DIFFERENTIAL AM 12/11/2022 Results for 4:30 AM [employer] this procedure are in the results section. Results CBC AM 12/11/2022 Results for 4:30 AM [employer] this procedure are in the results section. CALCIUM LEVEL TOTAL AM 12/11/2022 Results for 4:30 AM [employer] this procedure are in the results section. .GLOMERULAR FILTRATION AM 12/11/2022 Resul ts for RATE 4:30 AM [employer] this procedure are in the results section. SERUM CREATININE AM 12/11/2022 Results for 4:30 AM [employer] this procedure are in the results section. ELECTROLYTE PANEL AM 12/11/2022 Results fo r 4:30 AM [employer] this procedure are in the results section. BLOOD UREA NITROGEN AM 12/11/2022 Results for 4:30 AM [employer] this procedure are in the results section. GLUCOSE LEVEL AM 12/11/2022 Results for 4:30 AM [employer] this procedure are in the results section. COMPLETE BLOOD COUNT W/ AM 12/11/2022 DIFFERENTIAL 4:30 AM [employer] PHOSPHORUS LEVEL AM 12/11/2022 Results for 4:30 AM [employer] this procedure are in the results section. MAGNESIUM LEVEL AM 12/11/2022 Results for 4:30 AM [employer] this procedure are in the results section. BASIC METABOLIC PANEL, AM 12/11/2022 CALCIUM TOTAL 4:30 AM [employer] POC GLUCOSE SCREEN Routine 12/11/2022 Results f or 1:20 AM [employer] this procedure are in the results section. POC GLUCOSE SCREEN Routine 12/10/2022 Results f or 10:00 PM [employer] this procedure are in the results section. POC GLUCOSE SCREEN Routine 12/10/2022 Results f or 6:29 PM [employer] this procedure are in the results section. POC GLUCOSE SCREEN Routine 12/10/2022 Results f or 5:20 PM [employer] this procedure are in the results section. CT HEAD WO CONTRAST STAT 12/10/2022 Results for 3:21 PM [employer] this procedure are in the results section. POC GLUCOSE SCREEN Routine 12/10/2022 Results f or 1:45 PM [employer] this procedure are in the results section. POC GLUCOSE SCREEN Routine 12/10/2022 Results f or 11:35 AM [employer] this procedure are in the results section. POC GLUCOSE SCREEN Routine 12/10/2022 Results f or 7:30 AM [employer] this procedure are in the results section. URINALYSIS WITH Routine 12/10/2022 Results for MICROSCOPIC IF INDICATED 6:13 AM [employer] thi s procedure are in the results section. URINE CULTURE Routine 12/10/2022 Results for 6:13 AM [employer] this procedure are in the results section. MANUAL DIFFERENTIAL STAT 12/10/2022 Results for 5:13 AM [employer] this procedure are in the results section. Results CBC STAT 12/10/2022 Results for 5:13 AM [employer] this procedure are in the results section. CALCIUM LEVEL TOTAL AM 12/10/2022 Results for 5:13 AM [employer] this procedure are in the results section. .GLOMERULAR FILTRATION AM 12/10/2022 Resul ts for RATE 5:13 AM [employer] this procedure are in the results section. SERUM CREATININE AM 12/10/2022 Results for 5:13 AM [employer] this procedure are in the results section. ELECTROLYTE PANEL AM 12/10/2022 Results fo r 5:13 AM [employer] this procedure are in the results section. BLOOD UREA NITROGEN AM 12/10/2022 Results for 5:13 AM [employer] this procedure are in the results section. GLUCOSE LEVEL AM 12/10/2022 Results for 5:13 AM [employer] this procedure are in the results section. HEMOGLOBIN A1C Routine 12/10/2022 Results for 5:13 AM [employer] this procedure are in the results section. COMPLETE BLOOD COUNT W/ AM 12/10/2022 DIFFERENTIAL 5:13 AM [employer] PHOSPHORUS LEVEL AM 12/10/2022 Results for 5:13 AM [employer] this procedure are in the results section. MAGNESIUM LEVEL AM 12/10/2022 Results for 5:13 AM [employer] this procedure are in the results section. BASIC METABOLIC PANEL, AM 12/10/2022 CALCIUM TOTAL 5:13 AM [employer] POC GLUCOSE SCREEN Routine 12/10/2022 Results f or 1:38 AM [employer] this procedure are in the results section. POC GLUCOSE SCREEN Routine 12/09/2022 Results f or 11:18 PM [employer] this procedure are in the results section. POC VENOUS BLOOD GAS + Routine 12/09/2022 Resul ts for LACTATE 9:36 PM [employer] this procedure are in the results section. FRACTIONATED BILIRUBIN Routine 12/09/2022 Resul ts for 6:01 PM [employer] this procedure are in the results section. TOTAL PROTEIN Routine 12/09/2022 Results for 6:01 PM [employer] this procedure are in the results section. ASPARTATE AMINOTRANSFERASE Routine 12/09/2022 R esults for 6:01 PM [employer] this procedure are in the results section. ALANINE AMINOTRANSFERASE Routine 12/09/2022 Res ults for 6:01 PM [employer] this procedure are in the results section. ALKALINE PHOSPHATASE Routine 12/09/2022 Results for 6:01 PM [employer] this procedure are in the results section. ALBUMIN LEVEL Routine 12/09/2022 Results for 6:01 PM [employer] this procedure are in the results section. CALCIUM LEVEL TOTAL Routine 12/09/2022 Results for 6:01 PM [employer] this procedure are in the results section. .GLOMERULAR FILTRATION Routine 12/09/2022 Resul ts for RATE 6:01 PM [employer] this procedure are in the results section. SERUM CREATININE Routine 12/09/2022 Results for 6:01 PM [employer] this procedure are in the results section. ELECTROLYTE PANEL Routine 12/09/2022 Results fo r 6:01 PM [employer] this procedure are in the results section. BLOOD UREA NITROGEN Routine 12/09/2022 Results for 6:01 PM [employer] this procedure are in the results section. GLUCOSE LEVEL Routine 12/09/2022 Results for 6:01 PM [employer] this procedure are in the results section. MANUAL DIFFERENTIAL STAT 12/09/2022 Results for 6:01 PM [employer] this procedure are in the results section. Results CBC STAT 12/09/2022 Results for 6:01 PM [employer] this procedure are in the results section. LACTATE DEHYDROGENASE Routine 12/09/2022 Result s for 6:01 PM [employer] this procedure are in the results section. APTT Routine 12/09/2022 Results for 6:01 PM [employer] this procedure are in the results section. PROTHROMBIN TIME Routine 12/09/2022 Results for 6:01 PM [employer] this procedure are in the results section. PHOSPHORUS LEVEL Routine 12/09/2022 Results for 6:01 PM [employer] this procedure are in the results section. MAGNESIUM LEVEL Routine 12/09/2022 Results for 6:01 PM [employer] this procedure are in the results section. COMPREHENSIVE METABOLIC Routine 12/09/2022 PANEL 6:01 PM [employer] COMPLETE BLOOD COUNT W/ Routine 12/09/2022 DIFFERENTIAL 6:01 PM [employer] AMMONIA LEVEL Routine 12/09/2022 Results for 6:01 PM [employer] this procedure are in the results section. COVID-19 (SARS-COV-2)PCR Routine 12/09/2022 R esults for - ASYMPTOMATIC - LT 6:01 PM [employer] this pro cedure are in the results section. HP MOLECULAR BLOOD Routine 12/04/2022 Results f or COLLECTION 10:56 AM [employer] this procedure are in the results section. MISSY GRIFFIN SOLID TUMOR GENOMIC Routine 12/04/2022 ASSAY FUSIONS 2018 10:56 AM [employer] INTERPRETATION AND REPORT MISSY GRIFFIN MDA CHRISTINE MUTATION Routine 12/04/2022 ANALYSIS PRECISION PANEL 10:56 AM [employer] REPORT MRI SKULL BASE WITH AND Routine 11/30/2022 Adenocarcinoma of Results for WITHOUT CONTRAST 11:12 AM [employer] nasopharynx this proced ure are in the results section. PETCT CONTRAST ENHANCED Routine 11/27/2022 Adenocarcinoma of Results for INITIAL TREATMENT STRATEGY 3:57 PM [employer] nasop harynx this procedure Malignant neoplasm are in th e of overlapping results sites of section. nasopharynx POC GLUCOSE SCREEN Routine 11/27/2022 Results f or 1:06 PM [employer] this procedure are in the results section. POC GLUCOSE SCREEN Routine 11/27/2022 Results f or 12:29 PM [employer] this procedure are in the results section. FRACTIONATED BILIRUBIN Routine 11/26/2022 Adenocarcinoma of Results for 1:07 PM [employer] nasopharynx this procedure are in the results section. TOTAL PROTEIN Routine 11/26/2022 Adenocarcinoma of Results f or 1:07 PM [employer] nasopharynx this procedure are in the results section. ASPARTATE AMINOTRANSFERASE Routine 11/26/2022 Adenocarcinoma of Results for 1:07 PM [employer] nasopharynx this procedure are in the results section. ALANINE AMINOTRANSFERASE Routine 11/26/2022 Adenocarcinoma o f Results for 1:07 PM [employer] nasopharynx this procedure are in the results section. ALKALINE PHOSPHATASE Routine 11/26/2022 Adenocarcinoma of Re sults for 1:07 PM [employer] nasopharynx this procedure are in the results section. ALBUMIN LEVEL Routine 11/26/2022 Adenocarcinoma of Results f or 1:07 PM [employer] nasopharynx this procedure are in the results section. CALCIUM LEVEL TOTAL Routine 11/26/2022 Adenocarcinoma of Res ults for 1:07 PM [employer] nasopharynx this procedure are in the results section. .GLOMERULAR FILTRATION Routine 11/26/2022 Adenocarcinoma of Results for RATE 1:07 PM [employer] nasopharynx this procedure are in the results section. SERUM CREATININE Routine 11/26/2022 Adenocarcinoma of Result s for 1:07 PM [employer] nasopharynx this procedure are in the results section. ELECTROLYTE PANEL Routine 11/26/2022 Adenocarcinoma of Resul ts for 1:07 PM [employer] nasopharynx this procedure are in the results section. BLOOD UREA NITROGEN Routine 11/26/2022 Adenocarcinoma of Res ults for 1:07 PM [employer] nasopharynx this procedure are in the results section. GLUCOSE LEVEL Routine 11/26/2022 Adenocarcinoma of Results f or 1:07 PM [employer] nasopharynx this procedure are in the results section. MANUAL DIFFERENTIAL Routine 11/26/2022 Adenocarcinoma of Res ults for 1:07 PM [employer] nasopharynx this procedure are in the results section. Results CBC Routine 11/26/2022 Adenocarcinoma of Results fo r 1:07 PM [employer] nasopharynx this procedure are in the results section. PROTHROMBIN TIME Routine 11/26/2022 Adenocarcinoma of Result s for 1:07 PM [employer] nasopharynx this procedure are in the results section. APTT Routine 11/26/2022 Adenocarcinoma of Results fo r 1:07 PM [employer] nasopharynx this procedure are in the results section. THYROID STIMULATING Routine 11/26/2022 Adenocarcinoma of Res ults for HORMONE 1:07 PM [employer] nasopharynx this procedure are in the results section. VITAMIN D 25 HYDROXY LEVEL Routine 11/26/2022 Adenocarcinoma of Results for 1:07 PM [employer] nasopharynx this procedure are in the results section. URIC ACID Routine 11/26/2022 Adenocarcinoma of Results fo r 1:07 PM [employer] nasopharynx this procedure are in the results section. PHOSPHORUS LEVEL Routine 11/26/2022 Adenocarcinoma of Result s for 1:07 PM [employer] nasopharynx this procedure are in the results section. MAGNESIUM LEVEL Routine 11/26/2022 Adenocarcinoma of Results for 1:07 PM [employer] nasopharynx this procedure are in the results section. LACTATE DEHYDROGENASE Routine 11/26/2022 Adenocarcinoma of R esults for 1:07 PM [employer] nasopharynx this procedure are in the results section. FREE THYROXINE Routine 11/26/2022 Adenocarcinoma of Results for 1:07 PM [employer] nasopharynx this procedure are in the results section. COMPREHENSIVE METABOLIC Routine 11/26/2022 Adenocarcinoma of PANEL 1:07 PM [employer] nasopharynx COMPLETE BLOOD COUNT W/ Routine 11/26/2022 Adenocarcinoma of DIFFERENTIAL 1:07 PM [employer] nasopharynx NGS BLOOD CONTROL Routine 11/26/2022 Adenocarcinoma of Re sults for 1:07 PM [employer] nasopharynx this procedure are in the results section. AP IHC HER2/ARCENIO MATERIAL Routine 11/26/2022 Adenocarcinoma o f REQUEST 12:43 PM [employer] nasopharynx AP IHC PD-L1 MATERIAL Routine 11/26/2022 Adenocarcinoma of REQUEST 12:43 PM [employer] nasopharynx ANA CRISTINA GRIFFIN PTEN MUTATION Routine 11/26/2022 Adenocarcinoma of Res ults for MATERIAL REQUEST 12:43 PM [employer] nasopharynx this proced ure are in the results section. ANA CRISTINA GRIFFIN MTOR MATERIAL Routine 11/26/2022 Adenocarcinoma of Res ults for REQUEST 12:43 PM [employer] nasopharynx this procedure are in the results section. ANA CRISTINA GRIFFIN ERBB2 MUTATION Routine 11/26/2022 Adenocarcinoma of Re sults for ANALAYSIS MATERIAL REQUEST 12:43 PM [employer] nasopharynx t his procedure are in the results section. ANA CRISTINA GRIFFIN EGFR MUTATION Routine 11/26/2022 Adenocarcinoma of Res ults for MATERIAL REQUEST 12:43 PM [employer] nasopharynx this proced ure are in the results section. ANA CRISTINA GRIFFIN ALK MUTATION Routine 11/26/2022 Adenocarcinoma of Resu lts for ANALAYSIS MATERIAL REQUEST 12:43 PM [employer] nasopharynx t his procedure are in the results section. ANA CRISTINA GRIFFIN NTRK3 FUSION Routine 11/26/2022 Adenocarcinoma of Resu lts for ANALYSIS MATERIAL REQUEST 12:43 PM [employer] nasopharynx th is procedure are in the results section. ANA CRISTINA GRIFFIN NTRK2 FUSION Routine 11/26/2022 Adenocarcinoma of Resu lts for ANALYSIS MATERIAL REQUEST 12:43 PM [employer] nasopharynx th is procedure are in the results section. ANA CRISTINA GRIFFIN NTRK1 FUSION Routine 11/26/2022 Adenocarcinoma of Resu lts for ANALYSIS MATERIAL REQUEST 12:43 PM [employer] nasopharynx th is procedure are in the results section. MANUAL DIFFERENTIAL Routine 11/17/2022 Adenocarcinoma of Res ults for 12:11 PM [employer] nasopharynx this procedure are in the results section. Results CBC Routine 11/17/2022 Adenocarcinoma of Results fo r 12:11 PM [employer] nasopharynx this procedure are in the results section. FRACTIONATED BILIRUBIN Routine 11/17/2022 Adenocarcinoma of Results for 12:11 PM [employer] nasopharynx this procedure are in the results section. TOTAL PROTEIN Routine 11/17/2022 Adenocarcinoma of Results f or 12:11 PM [employer] nasopharynx this procedure are in the results section. ASPARTATE AMINOTRANSFERASE Routine 11/17/2022 Adenocarcinoma of Results for 12:11 PM [employer] nasopharynx this procedure are in the results section. ALANINE AMINOTRANSFERASE Routine 11/17/2022 Adenocarcinoma o f Results for 12:11 PM [employer] nasopharynx this procedure are in the results section. ALKALINE PHOSPHATASE Routine 11/17/2022 Adenocarcinoma of Re sults for 12:11 PM [employer] nasopharynx this procedure are in the results section. ALBUMIN LEVEL Routine 11/17/2022 Adenocarcinoma of Results f or 12:11 PM [employer] nasopharynx this procedure are in the results section. CALCIUM LEVEL TOTAL Routine 11/17/2022 Adenocarcinoma of Res ults for 12:11 PM [employer] nasopharynx this procedure are in the results section. .GLOMERULAR FILTRATION Routine 11/17/2022 Adenocarcinoma of Results for RATE 12:11 PM [employer] nasopharynx this procedure are in the results section. SERUM CREATININE Routine 11/17/2022 Adenocarcinoma of Result s for 12:11 PM [employer] nasopharynx this procedure are in the results section. ELECTROLYTE PANEL Routine 11/17/2022 Adenocarcinoma of Resul ts for 12:11 PM [employer] nasopharynx this procedure are in the results section. BLOOD UREA NITROGEN Routine 11/17/2022 Adenocarcinoma of Res ults for 12:11 PM [employer] nasopharynx this procedure are in the results section. GLUCOSE LEVEL Routine 11/17/2022 Adenocarcinoma of Results f or 12:11 PM [employer] nasopharynx this procedure are in the results section. PROLACTIN Routine 11/17/2022 Adenocarcinoma of Results fo r 12:11 PM [employer] nasopharynx this procedure are in the results section. INSULIN LIKE GROWTH FACTOR Routine 11/17/2022 Adenocarcinoma of Results for 1 12:11 PM [employer] nasopharynx this procedure are in the results section. TOTAL T3 Routine 11/17/2022 Adenocarcinoma of Results fo r 12:11 PM [employer] nasopharynx this procedure are in the results section. FREE THYROXINE Routine 11/17/2022 Adenocarcinoma of Results for 12:11 PM [employer] nasopharynx this procedure are in the results section. THYROID STIMULATING Routine 11/17/2022 Adenocarcinoma of Res ults for HORMONE 12:11 PM [employer] nasopharynx this procedure are in the results section. LUTEINIZING HORMONE Routine 11/17/2022 Adenocarcinoma of Res ults for 12:11 PM [employer] nasopharynx this procedure are in the results section. FOLLICLE STIMULATING Routine 11/17/2022 Adenocarcinoma of Re sults for HORMONE LEVEL 12:11 PM [employer] nasopharynx this procedure are in the results section. TESTOSTERONE LEVEL Routine 11/17/2022 Adenocarcinoma of Resu lts for 12:11 PM [employer] nasopharynx this procedure are in the results section. ESTRADIOL LEVEL Routine 11/17/2022 Adenocarcinoma of Results for 12:11 PM [employer] nasopharynx this procedure are in the results section. ADRENOCORTICOTROPIC Routine 11/17/2022 Adenocarcinoma of Res ults for HORMONE 12:11 PM [employer] nasopharynx this procedure are in the results section. 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 PROTHROMBIN TIME Routine 11/17/2022 Adenocarcinoma of Result s for 12:11 PM [employer] nasopharynx this procedure are in the results section. 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 No suspicious lymph nodes. Winter Luu MD IMG MRI ORDERABLES .Serum Creatinine (04/22/2023 12:28 PM CDT)Only the most recent of44 results within the time period is included. athologist Signature Creatinine 0.80 0.51 - 0.95 [facility] mg/dL Comment: Testing performed at [facility], [address] [place] [address] Specimen Anatomical Collection Method Collection Time Receive d Time (Source) Location / / Volume Laterality Blood 04/22/2023 12:28 04/22/2023 PM CDT 12:29 PM CDT Narrative [facility] - 04/22/2023 1:04 PM CDT Coordinate all on same day. Ok to schedu le 1-2 weeks following 04/14 to coordinate appts Winter Luu MD LAB BLOOD ORDERABLES Performing Organization Address City/State/ZIP Code Phon e Number [place], [place] [id number] [place] [address] (ABNORMAL) .CBC (04/22/2023 12:28 PM CDT)Only the most recent of44 resultswithin the time period is included. athologist Signature WBC 6.5 4.0 - 11.0 EADS K/uL Comment: All components of the CBC perfo rmed at [facility], [address] [place] [address] 77 3 RBC 4.39 4.00 - 5.50 M/uL EADS Comment: All components of the CBC perfo rmed at [facility], [address] [place] [address] 77 3 Hgb 14.3 12.0 - 16.0 gm/dL EADS Comment: As part of CBC or as an individ ual orderable testing performed at [facility], [address] [place] [address]64 Hct 43.7 37.0 - 47.0 % EADS Comment: As part of CBC testing performe d at [facility], [address] [place] [address] 78549 MCV 100 (H) 82 - 98 fL EADS Comment: As part of CBC testing performe d at [facility], [address] [place] [address] 03141 MCH 32.6 (H) 27.0 - 31.0 pg EADS Comment: As part of CBC testing performe d at [facility], [address] [place] [address], [place] [address] MCHC 32.7 31.0 - 36.0 gm/dL EADS Comment: As part of CBC testing performe d at [facility], [address] [place] [address], [place] [address] RDW-SD 45.6 35.1 - 46.3 fL EADS Comment: As part of CBC testing performe d at [facility], [address] [place] [address] 74697 RDW-CV 12.1 12.0 - 15.5 % EADS Comment: As part of CBC testing performe d at [facility], [address] [place] [address], [place] [address] Platelet count 150 140 - 440 K/uL [facility] Y Comment: As part of CBC or an individual orderable testing performed at [facility], [address] [place] [address] 36925 MPV 9.6 4.0 - 10.4 fL EADS Comment: As part of CBC testing performe d at [facility], [address] [place] [address]23 Specimen Anatomical Collection Method Collection Time Receive d Time (Source) Location / / Volume Laterality Blood 04/22/2023 12:28 04/22/2023 PM CDT 12:29 PM CDT Narrative [facility] - 04/22/2023 12:33 PM CDT Coordinate all on same day. Ok to schedu le 1-2 weeks following 04/14 to coordinate appts Winter Luu MD LAB BLOOD ORDERABLES Performing Organization Address City/State/ZIP Code [place] [address] [place] [address] Glomerular Filtration Rate (04/22/2023 12:28 PM CDT)Only the most recent of44 resultswithin the time period is included. P athologist Signature eGFR 86 >=60 EADS mL/min/1.73 sq. m Comment: The eGFRcr is [...] fulfill criteria for CKD. [facility], [address] [place] [address] Specimen Anatomical Collection Method Collection Time Receive d Time (Source) Location / / Volume Laterality Blood 04/22/2023 12:28 04/22/2023 PM CDT 12:29 PM CDT Narrative [facility] - 04/22/2023 1:04 PM CDT Coordinate all on same day. Ok to schedu le 1-2 weeks following 04/14 to coordinate appts Winter Luu MD LAB BLOOD ORDERABLES Performing Organization Address City/State/[place] [address] [place] [address] (ABNORMAL) IGF-1 (04/22/2023 12:28 PM CDT)Only the most recent of2 resultswithin the time period is included. athologist Signature Insulin-Like 226 (H) 37 - 208 [facility] Growth Factor ng/mL [facility] IGF Z-score 2.33 -2.0 - 2.0 [facility] Comment: ADDITIONAL INFORMATIO N This test was developed and its performa nce characteristics determined by [facility] in a manner co nsistent with CLIA requirements. This test has not been sisi ared or approved by the U.S. Food and Drug Administration. Test Performed by: [facility] [address] [facility], [place], [place] [address] [employer] Polisher: Yonathan Guzman M.D. Ph. D.; CLIA# [id number] Specimen Anatomical Collection Method Collection Time Receive d Time (Source) Location / / Volume Laterality Blood 04/22/2023 12:28 04/22/2023 PM CDT 12:29 PM CDT Narrative [facility] [place] - 3:42 PM CDT Coordinate all on same day. Ok to schedule 1-2 weeks following 04/14 to coordinate appts 8am Fasting Winter Luu MD LAB BLOOD ORDERABLES Performing Organization Address City/State/ZIP Code Phon e Number [facility] Unless otherwise noted, [place] [address] [place] all lab tests performed by: Division of Pathology and Laboratory Medicine [address] (ABNORMAL) ACTH (04/22/2023 12:28 PM CDT)Only the most recent of2 resultswithin the time period is included. athologist Signature ACTH 3 (L) 7 - 63 pg/mL EADS Comment: Results greater than 1826 pg/mL may not be reliable due to matrix effect with extended dilution as it exceeds the hot pipe gauger's recommended limit. ACTH reference intervals are established for the morni ng hours from 7-10 am. Due to the circad katie rhythm of ACTH levels in plasma, the sample col lection time must be noted. Caution should be exercised when interpreting such values and done in conjunction with clinical context. Testing performed at [facility], [address] [place] [address], [place] [address] Specimen Anatomical Collection Method Collection Time Receive d Time (Source) Location / / Volume Laterality Blood 04/22/2023 12:28 04/22/2023 PM CDT 12:29 PM CDT [facility] - 04/22/2023 1:05 PM CDT Coordinate all on same day. Ok to schedule 1-2 weeks following 04/14 to coordinate appts 8am Fasting Winter Luu MD LAB BLOOD ORDERABLES Performing Organization Address City/State/ZIP Code Phon e Number [facility] [place] [address] [address] [facility] Prolactin (04/22/2023 12:28 PM CDT)Only the most recent of2 resultswithin the time period is included. athologist Signature Prolactin 10.9 4.8 - 23.3 [facility] ng/mL [facility] Comment: Results greater than 4700.0 ng/ mL may not be reliable due to matrix effect with extended dilution as it exceeds the hot pipe gauger s recommended limit. Caution should be e xercised when interpreting such values and done in conjunction with clinical contex t. Specimen Anatomical Collection Method Collection Time Receive d Time (Source) Location / / Volume Laterality Blood 04/22/2023 12:28 04/22/2023 8:43 PM CDT PM CDT Narrative [facility] - 9:07 PM CDT Coordinate all on same day. Ok to schedule 1-2 weeks following 04/14 to coordinate appts 8am Fasting Winter Luu MD LAB BLOOD ORDERABLES Performing Organization Address City/State/[facility] Code Phon e Number [facility]CER Unless otherwise noted, [place] [address] [place] all lab tests performed by: Division of Pathology and Laboratory Medicine [address] Estradiol (Women) (04/22/2023 12:28 PM CDT)Only the most recent of2 results within the time period is included. athologist Signature Estradiol <11 pg/mL [facility] Comment: Reference Ranges: Adult Females: Follicular Phase [...] 04/22/2023 8:43 PM CDT PM CDT Narrative [facility] - 9:07 PM CDT Coordinate all on same day. Ok to schedule 1-2 weeks following 04/14 to coordinate appts 8am Fasting Winter Luu MD LAB BLOOD ORDERABLES Performing Organization Address City/State/ZIP Code Phon e Number [facility] Unless otherwise noted, [place] [address] [place] all lab tests performed by: Division of Pathology and Laboratory Medicine [address] (ABNORMAL) Differential (04/22/2023 12:28 PM CDT)Only the most recent of44 resultswithin the time period is included. athologist Signature Neutrophil % 86.1 (H) 42.0 - [facility] 66.0 % Comment: All components of the Different ial performed at [facility], [address] [place] [address] Lymphocyte % 10.9 (L) 24.0 - 44.0 % [facility] Comment: As part of the Differential hailey ting performed at [facility], [address] [place] [address] 59838 Monocyte % 2.3 2.0 - 7.0 % [facility] Comment: As part of the Differential hailey ting performed at [facility], [address] [place] [address]2626 Eosinophil % 0.2 (L) 1.0 - 4.0 % [facility] Comment: As part of the Differential hailey ting performed at [facility], [address] [place] [address] 86968 Basophil % 0.2 0.0 - 1.0 % [facility] Comment: As part of the Differential hailey ting performed at [facility], [address] [place] [address] 20932 IGRE % 0.3 0.0 - 0.4 % [facility] Comment: IGRE % count includes Metamyelocytes, My elocytes, and Promyelocytes. As part of the Differential testing perf ormed at [facility], [address] [place] [address]230 Neutrophil Abs 5.62 1.70 - 7.30 K/uL [facility] Comment: As part of the Differential hailey ting performed at [facility], [address] [place] [address] Lymphocyte Abs 0.71 (L) 1.00 - 4.80 K/uL [facility] Comment: As part of the Differential hailey ting performed at [facility], [address] [place] [address] Monocyte Abs 0.15 0.08 - 0.70 K/uL [facility] Comment: As part of the Differential hailey ting performed at [facility], [address] [place] [address] Eosinophil Abs 0.01 (L) 0.04 - 0.40 K/uL [facility] Comment: As part of the Differential hailey ting performed at [facility], [address] [place] [address] Basophil Abs 0.01 0.00 - 0.10 K/uL [facility] Comment: As part of the Differential hailey ting performed at [facility], [address] [place] [address] IG Abs 0.02 0.00 - 0.04 K/uL [facility] Comment: As part of the Differential hailey ting performed at [facility], [address] [place] [address] Specimen Anatomical Collection Method Collection Time Receive d Time (Source) Location / / Volume Laterality Blood 04/22/2023 12:28 04/22/2023 PM CDT 12:29 PM CDT Narrative [facility] - 04/22/2023 12:33 PM CDT Coordinate all on same day. Ok to schedu le 1-2 weeks following 04/14 to coordinate appts Winter Luu MD LAB BLOOD ORDERABLES Performing Organization Address City/State/ZIP Code Phon e Number [address] BUN (04/22/2023 12:28 PM CDT)Only the most recent of44 resultswithin the time period is included. athologist [facility] BUN 12 6 - 23 mg/dL [facility] Comment: [facility], [address] [place] [address] Specimen Anatomical Collection Method Collection Time Receive d Time (Source) Location / / Volume Laterality Blood 04/22/2023 12:28 04/22/2023 PM CDT 12:29 PM CDT [facility] - 04/22/2023 1:04 PM CDT Coordinate all on same day. Ok to schedu le 1-2 weeks following 04/14 to coordinate appts Winter Luu MD LAB BLOOD ORDERABLES Performing Organization Address City/State/[place] [address] [place] [address] Total T3 (04/22/2023 12:28 PM CDT)Only the most recent of2 resultswithin the time period is included. athologist [facility] T3 Total 117 80 - 200 [facility] ng/dL Comment: [facility], [address] [place] [address] Specimen Anatomical Collection Method Collection Time Receive d Time (Source) Location / / Volume Laterality Blood 04/22/2023 12:28 04/22/2023 PM CDT 12:29 PM CDT [facility] - 04/22/2023 1:04 PM CDT Coordinate all on same day. Ok to schedule 1-2 weeks following 04/14 to coordinate appts 8am Fasting Winter Luu MD LAB BLOOD ORDERABLES Performing Organization Address City/State/ZIP Code Phon e Number [place], [place] [phone] [place] [address] TSH (04/22/2023 12:28 PM CDT)Only the most recent of3 resultswithin the time period is included. athologist [facility] TSH 1.06 0.27 - 4.20 [facility] mcunit/mL Comment: Testing performed at [facility], [address] [place] [address]1430 Specimen Anatomical Collection Method Collection Time Receive d Time (Source) Location / / Volume Laterality Blood 04/22/2023 12:28 04/22/2023 PM CDT 12:29 PM CDT [facility] - 04/22/2023 1:04 PM CDT Coordinate all on same day. Ok to schedule 1-2 weeks following 04/14 to coordinate appts 8am Fasting Winter Luu MD LAB BLOOD ORDERABLES Performing Organization Address City/[facility]/[place] [address] [place] [address] Free T4 (04/22/2023 12:28 PM CDT)Only the most recent of3 resultswithin the time period is included. athologist Signature T4 Free 1.21 0.93 - 1.70 [facility] ng/dL Comment: Testing performed at [facility], [address] [place] [address]10 Specimen Anatomical Collection Method Collection Time Receive d Time (Source) Location / / Volume Laterality Blood 04/22/2023 12:28 04/22/2023 PM CDT 12:29 PM CDT [facility] - 04/22/2023 1:04 PM CDT Coordinate all on same day. Ok to schedule 1-2 weeks following 04/14 to coordinate appts 8am Fasting Winter Luu MD LAB BLOOD ORDERABLES Performing Organization Address City/[facility]/[place] [address] [place] [address] LH (04/22/2023 12:28 PM CDT)Only the most recent of2 resultswithin the time period is included. P athologist Signature LH 8.7 mIU/mL [facility] Comment: Female Luteinizing Hormone Reference Ran ges: LOW HIGH Follicular 2.4 12.6 Ovulation 14.0 95.6 Luteal 1.0 11.4 Postmenopause 7.7 58.5 Specimen Anatomical Collection Method Collection Time Receive d Time (Source) Location / / Volume Laterality Blood 04/22/2023 12:28 04/22/2023 8:43 PM CDT PM CDT Narrative [facility] - 9:07 PM CDT Coordinate all on same day. Ok to schedule 1-2 weeks following 04/14 to coordinate appts 8am Fasting Winter Luu MD LAB BLOOD ORDERABLES Performing Organization Address City/State/ZIP [place] [facility] Phon e Number [facility] Unless otherwise noted, [address] all lab tests performed by: Division of Pathology and Laboratory Medicine [facility] FSH (04/22/2023 12:28 PM CDT)Only the most recent of2 resultswithin the time period is included. athologist Signature FSH 30.1 mIU/mL [facility] Comment: Female Follicle Stimulating Hormone Refe rence Ranges: L OW HIGH Follicular 3.5 12.5 Ovulation 4.7 21.5 Luteal 1.7 7.7 Postmenopause 25.8 134.8 Specimen Anatomical Collection Method Collection Time Receive d Time (Source) Location / / Volume Laterality Blood 04/22/2023 12:28 04/22/2023 8:43 PM CDT PM CDT Narrative [facility] - 9:07 PM CDT Coordinate all on same day. Ok to schedule 1-2 weeks following 04/14 to coordinate appts 8am Fasting Winter Luu MD LAB BLOOD ORDERABLES Performing Organization Address City/[facility] Phon e Number [facility] Unless otherwise noted, [address] all lab tests performed by: Division of Pathology and Laboratory Medicine [address] [place], [place] [address] (ABNORMAL) Total Cortisol (04/22/2023 12:28 PM CDT)Only the most recent of2 resultswithin the time period is included. P athologist Signature Cortisol, 1.81 (L) 4.80 - [facility] Total 19.50 mcg/dL Comment: Cortisol reference [...] (4-8pm) (2.5 - 11.9) Testing performed at [facility], [address] [place] [address] Specimen Anatomical Collection Method Collection Time Receive d Time (Source) Location / / Volume Laterality Blood 04/22/2023 12:28 04/22/2023 PM CDT 12:29 PM CDT Narrative [facility] - 04/22/2023 1:04 PM CDT Coordinate all on same day. Ok to schedule 1-2 weeks following 04/14 to coordinate appts 8am Fasting Winter Luu MD LAB BLOOD ORDERABLES Performing Organization Address City/State/[place] [address] [place] [address] (ABNORMAL) Electrolyte Panel (04/22/2023 12:28 PM CDT)Only the most recent of45 resultswithin the time period is included. P athologist Signature Sodium Lvl 135 (L) 136 - 145 [facility] mEq/L Comment: Testing performed at [facility], [address] [place] [address]65 Potassium Lvl 4.7 3.5 - 5.1 mEq/L [facility] Comment: Testing performed at [facility], [address] [place] [address] 73615 Chloride 96 (L) 98 - 107 mEq/L [facility] Comment: Testing performed at [facility], [address] [place] [address] 74274 CO2 21 (L) 22 - 29 mEq/L [facility] Comment: Testing performed at [facility], [address] [place] [address] 59673 Anion Gap 18 (H) 4 - 14 mEq/L [facility] Comment: Testing performed at [facility], [address] [place] [address]706 Specimen Anatomical Collection Method Collection Time Receive d Time (Source) Location / / Volume Laterality Blood 04/22/2023 12:28 04/22/2023 PM CDT 12:29 PM CDT [facility] - 04/22/2023 1:04 PM CDT Coordinate all on same day. Ok to schedu le 1-2 weeks following 04/14 to coordinate appts Winter Luu MD LAB BLOOD ORDERABLES Performing Organization Address City/State/ZIP Code Phon e Number [place], [place] [phone] [place] [address] Fractionated Bilirubin (03/11/2023 11:15 AM CDT)Only the most recent of24 resultswithin the time period is included. athologist Signature Bili Total <0.3 <=1.2 mg/dL [facility] Comment: Direct and indirect bilirubin will not b e reported when Total bilirubin result is <0.3 mg/dL Indocyanine Green (ICG) may cause falsel y elevated bilirubin results. Total and direct bilirubin must not be measured from samples containing indocyanine green. False elevation of total bilirubin can b e seen in patients with IgG concentrations above 28 g/L. Testing performed at [facility], [address] [place] [address] Specimen Anatomical Collection Method Collection Time Receive d Time (Source) Location / / Volume Laterality Blood 03/11/2023 11:15 03/11/2023 AM CDT 11:16 AM CDT [facility] - 03/11/2023 11:40 AM CDT Follow up at 1120, lab prior and infusio n after Lorena Hdez APRN LAB BLOOD ORDERABLES Performing Organization Address City/State/ZIP Code Phon e Number [place], [place] [phone] [place] [address] (ABNORMAL) ALT (03/11/2023 11:15 AM CDT)Only the most recent of24 resultswithin the time period is included. athologist Signature ALT 40 (H) <=33 U/L EADS Comment: Testing performed at [facility], [address] [place] [id number] Specimen Anatomical Collection Method Collection Time Receive d Time (Source) Location / / Volume Laterality Blood 03/11/2023 11:15 03/11/2023 AM CDT 11:16 AM CDT [facility] - 03/11/2023 11:40 AM CDT Follow up at 1120, lab prior and infusio n after Lorena Hdez APRN LAB BLOOD ORDERABLES Performing Organization Address City/[facility]/ZIP Code Phon e Number [address] Aspartate Aminotransferase (03/11/2023 11:15 AM CDT)Only the most recent of24 resultswithin the time period is included. athologist Signature AST 26 <=32 U/L EADS Comment: Testing performed at [facility], [address] [place] [address] Specimen Anatomical Collection Method Collection Time Receive d Time (Source) Location / / Volume Laterality Blood 03/11/2023 11:15 03/11/2023 AM CDT 11:16 AM CDT [facility] - 03/11/2023 11:40 AM CDT Follow up at 1120, lab prior and infusio n after Lorena Hdez APRN LAB BLOOD ORDERABLES Performing Organization Address City/[facility]/ZIP Code Phon e Number [address] Total Protein (03/11/2023 11:15 AM CDT)Only the most recent of24 resultswithin the time period is included. athologist Signature Total Protein 7.0 6.4 - 8.3 EADS g/dL Comment: Testing performed at [facility], [address] [place] [address] Specimen Anatomical Collection Method Collection Time Receive d Time (Source) Location / / Volume Laterality Blood 03/11/2023 11:15 03/11/2023 AM CDT 11:16 AM CDT [facility] - 03/11/2023 11:40 AM CDT Follow up at 1120, lab prior and infusio n after Lorena Hdez APRN LAB BLOOD ORDERABLES Performing Organization Address City/State/ZIP Code Phon e Number [place], [place] [id number] [place] [address] (ABNORMAL) Alkaline Phosphatase (03/11/2023 11:15 AM CDT)Only the most recent of 24 resultswithin the time period is included. athologist Signature Alk Phos 107 (H) 35 - 104 EADS U/L Comment: Testing performed at [facility], [address] [place] [address] Specimen Anatomical Collection Method Collection Time Receive d Time (Source) Location / / Volume Laterality Blood 03/11/2023 11:15 03/11/2023 AM CDT 11:16 AM CDT Narrative EADS - 03/11/2023 11:40 AM CDT Follow up at 1120, lab prior and infusio n after Lorena Hdez APRN LAB BLOOD ORDERABLES Performing Organization Address City/[facility]/ZIP Code Phon e Number [place], [place] [phone] [place] [address] (ABNORMAL) Magnesium Level (03/11/2023 11:15 AM CDT)Only the most recent of42 resultswithin the time period is included. athologist Signature Magnesium 1.4 (L) 1.6 - 2.6 EADS mg/dL Comment: Testing performed at [facility], [address] [place] [address] Specimen Anatomical Collection Method Collection Time Receive d Time (Source) Location / / Volume Laterality Blood 03/11/2023 11:15 03/11/2023 AM CDT 11:16 AM CDT Narrative EADS - 03/11/2023 11:40 AM CDT Follow up at 1120, lab prior and infusio n after Lorena Kayla Hdez SNUBBER LAB BLOOD ORDERABLES Performing Organization Address City/State/ZIP Code Phon e Number [place], [place] [phone] [place] [address] (ABNORMAL) Glucose Level (03/11/2023 11:15 AM CDT)Only the most recent of43 resultswithin the time period is included. athologist Signature Glucose Level 324 (H) 70 - 99 EADS mg/dL Comment: Effective 05/27/16, the glucose reference intervals have been updated based on [place] [employer] guidelines (Standards of Medical Care in Diabetes 2016. Diabetes Care 2016; 39: S13-S22). Fasting blood glucose: Normal: 70-99 mg/dL Impaired fasting glucose (increased risk for diabetes or pre-diabetes): 100- 125 mg/dL Diabetes mellitus: >/=126 mg/dL Random blood glucose: Normal: 70-199 mg/dL Note: Random glucose >100 mg/dL is assoc iated with increased risk for diabetes Testing performed at [facility], [address] [place] [address] Specimen Anatomical Collection Method Collection Time Receive d Time (Source) Location / / Volume Laterality Blood 03/11/2023 11:15 03/11/2023 AM CDT 11:16 AM CDT [facility] 03/11/2023 11:40 AM CDT Follow up at 1120, lab prior and infusio n after Lorena Hdez APRN LAB BLOOD ORDERABLES Performing Organization Address City/[facility]/ZIP Code Phon e Number [address] Calcium Level (03/11/2023 11:15 AM CDT)Only the most recent of43 resultswithin the time period is included. athologist Signature Calcium Lvl 9.3 8.4 - 10.2 EADS mg/dL Comment: Testing performed at [facility], [address] [place] [address] Specimen Anatomical Collection Method Collection Time Receive d Time (Source) Location / / Volume Laterality Blood 03/11/2023 11:15 03/11/2023 AM CDT 11:16 AM CDT [facility] - 03/11/2023 11:40 AM CDT Follow up at 1120, lab prior and infusio n after Lorena Hdez APRN LAB BLOOD ORDERABLES Performing Organization Address City/State/[place] [address] [place] [address] Albumin Level (03/11/2023 11:15 AM CDT)Only the most recent of24 resultswithin the time period is included. athologist Signature Albumin Lvl 3.9 3.5 - 5.2 EADS gm/dL Comment: [facility], [address] [place] [address], [place] [address] Specimen Anatomical Collection Method Collection Time Receive d Time (Source) Location / / Volume Laterality Blood 03/11/2023 11:15 03/11/2023 AM CDT 11:16 AM CDT Narrative EADS - 03/11/2023 11:40 AM CDT Follow up at 1120, lab prior and infusio n after Lorena Hdez APRN LAB BLOOD ORDERABLES Performing Organization Address City/State/[place] [address] [place] [address] (ABNORMAL) POC Glucose Screen (02/16/2023 12:02 PM [...] Sample Type Capillary POC TELCOR Performing Lab [facility] POC TELCO R Comment: [facility], [address] [place] [address], [place] [address]; Lab Direct or: Chula Jacob MD; Waived Point of Care Testing - Gabrielle Mueller MD Specimen Anatomical Collection Method Collection Time Receive d Time (Source) Location / / Volume Laterality Blood 02/16/2023 12:02 02/16/2023 PM CDT 12:02 PM CDT Ashleigh Rangel MD [facility] Performing Organization Address City/State/ZIP Code Phon e Number POC TELCOR Unless otherwise noted, [place] [address] lab tests performed by: Division of Pathology and Laboratory Medicine [address] (ABNORMAL) Anti-Xa Level (02/16/2023 11:13 AM CDT) athologist Signature Anti-Xa Level 1.45 (H) 0.00 - [place] 0.10 [place] unit/mL [facility] Comment: Anti-Xa Level (Heparin [...] Ref: Chest 2008; 133;[id number] Hep Type Enoxaparin [facility] Specimen Anatomical Collection Method Collection Time Receive d Time (Source) Location / / Volume Laterality Blood 02/16/2023 11:13 02/16/2023 AM CDT 11:21 AM CDT Narrative [facility] - 3 1:11 PM CDT Nurse please coordinate with lab to draw n Anti-Xa level (low molecular weight heparin level) 4 hours after 02/16/23 morning kourtney xaparin dose is given. Angeli Wang MD LAB BLOOD ORDERABLES Performing Organization Address City/State/ZIP Code Phon e Number [facility] CANCER Unless otherwise noted, [place] [address] CENTER all lab tests performed by: Division of Pathology and Laboratory Medicine [address] Phosphorus Level (02/16/2023 6:15 AM CDT)Only the most recent of40 resultswithin the time period is included. athologist [facility] Phosphorus 4.3 2.5 - 4.5 [facility] mg/dL [facility] Specimen Anatomical Collection Method Collection Time Receive d Time (Source) Location / / Volume Laterality Blood 02/16/2023 6:15 AM 3 6:59 CDT AM CDT DEEPTI Harrell APRN LAB BLOOD ORDERABLES Performing Organization Address City/[facility]/ZIP [facility] Phon e Number [facility] CANCER Unless otherwise noted, [address] all lab tests performed by: Division of Pathology and Laboratory Medicine [address] [place] [address] General Laboratory Add-On Test (02/12/2023 9:33 AM CDT)Only the most recent of4 resultswithin the time period is included. [facility] gist Method Time Signature Ordered Test Added [facility] Test Needed procalcitonin [facility] Specimen Anatomical Collection Method Collection Time Receive d Time (Source) Location / / Volume Laterality Existing 02/12/2023 9:33 AM 3 9:34 CDT AM CDT Kimberli GALE LAB BLOOD ORDERABLES Performing Organization Address City/[facility] Phon e Number [facility] Unless otherwise noted, [address] all lab tests performed by: Division of Pathology and Laboratory Medicine [address] [place] [address] (ABNORMAL) Procalcitonin (02/12/2023 5:34 AM CDT)Only the most recent of4 resultswithin the time period is included. athologist [facility] Procalcitonin 0.38 (H) <=0.08 [facility] ng/mL [facility] Comment: Procalcitonin > 2.00 ng/mL: Procalcit [...] with extended dilution as it exceeds the hot pipe gauger's recommended limit. Caution should be exercised when interpreting such values and done in conjunction with clinical context. Specimen Anatomical Collection Method Collection Time Receive d Time (Source) Location / / Volume Laterality Blood 02/12/2023 5:34 AM 6:18 CDT AM CDT DEEPTI Harrell APRN LAB BLOOD ORDERABLES Performing Organization Address City/State/ZIP Code Phon e Number [facility] CANCER Unless otherwise noted, [address] all lab tests performed by: Division of Pathology and Laboratory Medicine [facility]5 [facility] CT Maxillofacial Area with Contrast (02/11/2023 [...] athologist Signature CK 125 26 - 192 [facility] U/L [facility] Specimen Anatomical Collection Method Collection Time Receive d Time (Source) Location / / Volume Laterality Blood 02/09/2023 5:37 AM 3 6:08 CDT AM CDT Shelby GALE LAB BLOOD ORDERABLES Performing Organization Address City/State/ZIP Code Phon e Number [facility] CANCER Unless otherwise noted, [place] [address] [employer] all lab tests performed by: Division of Pathology and Laboratory Medicine [address] [place] [address] Mangum US Arm Venous Doppler Bilateral (02/08/2023 6:28 [...] PM CDT Examination: [facility], 02/08/2023 6:28 PM Clinical History: Adenoid [...] - 02/08/2023 Examination: [facility], 02/08/2023 6:28 PM Clinical History: Adenoid [...] V1 max P.6 mmHg MR max alejandra: 50 5.6 cm/sec LV V1 mean P.2 mmHg LV [...] (V,D ): 0.74 Dimensionless Index: 0.58 E/e' (avg ): 11.6 E/e' (lat): 9.2 E/e' (sept): 15.7 Thao Amelia Soria MD CV ECHO ORDERABLES Performing Organization Address [facility] Phon e Number ISCV HIV-1/2 Antigen and [...] purpose. For additional information please refer to http://education.Whimseybox.Acunu/fa q/COA027 (This link is being provided for informa tional/ educational purposes only.) The performance of this assay has not be en clinically validated in patients less than 2 years old. Lab test performed by: Lab Mnemonic: [facility] [address] [id number] JOSE ELIAS MELÉNDEZ MD Specimen Anatomical Collection Method Collection Time Receive d Time (Source) Location / / Volume Laterality Blood 02/07/2023 6:52 AM 7:22 CDT AM CDT Thao Amelia Soria MD LAB BLOOD ORDERABLES Performing Organization Address [facility] Phon e Number [facility] Hepatitis C Virus Ab (02/07/2023 6:52 AM CDT)Only the most recent of2 results within the time period is included. Patholo gist Method Time Signature HCVAb. Non Reactive Non Reactive [facility] Comment: Antibody detection in the immunocompromi sed [...] MD LAB BLOOD ORDERABLES Performing Organization Address City/[facility] Phon e Number [facility] Unless otherwise noted, [address] all lab tests performed by: Division of Pathology and Laboratory Medicine [facility] [address] Hodges Hepatitis B Total Ig Core Ab (SCREENING) (anti-HBc total Ig; HBcAb total Ig) (02/07/2023 6:52 AM CDT) [facility] Signature HBcAb. Non Reactive Non Reactive [facility] Specimen Anatomical Collection Method Collection Time Receive d Time (Source) Location / / Volume Laterality Blood 02/07/2023 6:52 AM 3 8:32 CDT AM CDT Thao Soria MD LAB BLOOD ORDERABLES Performing Organization Address [facility] Phon e Number [facility] Unless otherwise noted, [address] all lab tests performed by: Division of Pathology and Laboratory Medicine [address] [place] [address] Mangum Hepatitis B Surface Ag (02/07/2023 6:52 AM CDT) [facility] Signature HBsAg. Non Reactive Non Reactive [facility] Specimen Anatomical Collection Method Collection Time Receive d Time (Source) Location / / Volume Laterality Blood 02/07/2023 6:52 AM 3 8:32 CDT AM CDT Thao Soria MD LAB BLOOD ORDERABLES Performing Organization Address [facility] Phon e Number [facility] Unless otherwise noted, [address] all lab tests performed by: Division of Pathology and Laboratory Medicine [address] [place] [address] Tracie Blood Culture (02/07/2023 6:52 AM CDT)Only the most recent of6 resultswithin the time period is included. athologist Signature Final Report No growth [facility] Specimen Anatomical Collection Method Collection Time Receive d Time (Source) Location / / Volume Laterality Blood 02/07/2023 6:52 AM 3 7:43 (Venipuncture-Ri CDT AM CDT ght) Comment: arm Tim Nguyen MD MICROBIOLOGY - GENERAL ORDER [place] Performing Organization Address City/State/ZIP Code Phon e Number [facility] Unless otherwise noted, [address] all lab tests performed by: Division of Pathology and Laboratory Medicine [address] Transferrin with TIBC (02/07/2023 6:52 AM CDT) athologist Signature Transferrin 205 200 - 360 [facility] mg/dL [facility] TIBC 287 250 - 450 [facility] mcg/dL [facility] Specimen Anatomical Collection Method Collection Time Receive d Time (Source) Location / / Volume Laterality Blood 02/07/2023 6:52 AM 3 7:07 CDT AM CDT Thao Soria MD LAB BLOOD ORDERABLES Performing Organization Address City/[facility] Phon e Number [facility] Unless otherwise noted, [address] all lab tests performed by: Division of Pathology and Laboratory Medicine [address] Iron Level (02/07/2023 6:52 AM CDT) athologist Signature Iron 51 37 - 145 [facility] mcg/dL [facility] Specimen Anatomical Collection Method Collection Time Receive d Time (Source) Location / / Volume Laterality Blood 02/07/2023 6:52 AM 3 7:07 CDT AM CDT Thao Soria MD LAB BLOOD ORDERABLES Performing Organization Address City/[facility] Phon e Number [facility] Unless otherwise noted, [address] all lab tests performed by: Division of Pathology and Laboratory Medicine [address] (ABNORMAL) Hemoglobin A1c (02/07/2023 6:52 AM CDT)Only the most recent of2 resultswithin the time period is included. athologist Signature A1C 10.2 (H) 4.3 - 5.6 % [facility] Comment: HbA1c values >=6.5% are diagnostic of [...] Organization Address City/State/ZIP Code Phon e Number [facility] Unless otherwise noted, [address] all lab tests performed by: Division of Pathology and Laboratory Medicine [facility] Tracie (ABNORMAL) Ferritin Level (02/07/2023 6:52 AM CDT) athologist [facility] Ferritin Lvl 320 (H) 13 - 150 [facility] ng/mL [facility] Specimen Anatomical Collection Method Collection Time Receive d Time (Source) Location / / Volume Laterality Blood 02/07/2023 6:52 AM 3 7:07 CDT AM CDT Thao Soria MD LAB BLOOD ORDERABLES Performing Organization Address City/State/ZIP Code Phon e Number [facility] Unless otherwise noted, [address] all lab tests performed by: Division of Pathology and Laboratory Medicine [address] (ABNORMAL) Lipid Panel (02/07/2023 6:52 AM CDT) athologist [facility] Chol 137 <=199 mg/dL [facility] Comment: ATP III Classification of Total Choleste rol Primary Target of Therapy (in mg/dL): <200 Desirable 200-239 Borderline high >=240 High Trig 184 (H) <=149 mg/dL [facility] Comment: ATP III Classification of Serum Triglyce rides Primary Target of Therapy (in mg/dL): <150 Normal 150-199 Borderline high 200-499 High >=500 Very high Non-fasting triglycerides >200 mg/dL may be followed up with a fasting Lipid Panel. Calculated LDL-C may be falsely decreased when non-fasting triglycerides >200 mg/dL. HDL 27 (L) >=40 mg/dL [place] MD BL[facility] CENTER LDL 73 <=100 mg/dL [place] MD BLUM [facility] Comment: ATP III Classification of LDL Cholestero l Primary Target of Therapy (in mg/dL): <100 Optimal 100-129 Near optimal/above optimal 130-159 Borderline high 160-189 High >=190 Very high VLDL 37 mg/dL [place] [facility] Specimen Anatomical Collection Method Collection Time Receive d Time (Source) Location / / Volume Laterality Blood 02/07/2023 6:52 AM 7:07 CDT AM CDT Thao Soria MD LAB BLOOD ORDERABLES Performing Organization Address City/State/ZIP Code Phon e Number [facility] Unless otherwise noted, [place] [address] [employer] all lab tests performed by: Division of Pathology and Laboratory Medicine [facility]5 [facility] Clostridium Difficile DNA Path Review (02/07/2023 5:18 AM CDT) Component Value Ref Test Analysis Performed At [facility] gist Range Method Time Signature C diff DNA NM Reviewed and Electronically signed by Pathologist: [place] MD PATRICIA CHAVEZ MD #[id number] [facility] Comment: C. difficile Toxin DNA (Primary Method) [...] for repeat testing. PATRICIA CHAVEZ MD - [id number] Dictated by: PATRICIA CHAVEZ MD - [id number] Dictated Date/Time: 02.07.2023 16:35 PM CDT Transcribed Date/Time: 02.07.2023 16:35 PM CDT Electronically Signed By: PATRICIA OTTO MD - [id number] on 02.07.2023 16:35 PM Specimen Anatomical Collection Method Collection Time Receive d Time (Source) Location / / Volume Laterality Stool 02/07/2023 5:18 AM 3 8:07 CDT AM CDT Thao Soria MD MICROBIOLOGY - GENERAL ORDER [place] Performing Organization Address City/[facility]/ZIP Code Phon e Number [facility] Unless otherwise noted, [address] all lab tests performed by: Division of Pathology and Laboratory Medicine [address] [place] [address] Tracie Clostridium Difficile DNA Assay (02/07/2023 5:18 AM CDT) [facility] gist Method Time [facility] C difficile DNA Negative Negative [place] [facility] C difficle Toxin Test Not Negative [place] EIA Performed [facility] C difficile C. difficile [facility] Interpretation DNA [facility] CANCER was negative CENTER making C. difficile infection highly unlikely in this patient. EIA not performed. Specimen Anatomical Collection Method Collection Time Receive d Time (Source) Location / / Volume Laterality Stool 02/07/2023 5:18 AM 3 6:14 CDT AM CDT Thao Soria MD MICROBIOLOGY - GENERAL ORDER [place] Performing Organization Address City/[facility]/ZIP Code Phon e Number [facility] Unless otherwise noted, [address] all lab tests performed by: Division of Pathology and Laboratory Medicine [address] [place] [address] Tracie Gastrointestinal Multiplex Panel (02/07/2023 5:16 AM CDT) Component Value Ref Range Test Analysis [facility] Method Time At [facility] Campylobacter Not Detected Not [place] Detected [facility] C difficile DNA (GI Refer to [place] Multi Panel) separate C. [place] difficile DNA CANCER Assay for CENTER results Plesiomonas Not Detected Not [place] shigelloides Detected [facility] Salmonella Not Detected Not [place] Detected [facility] Vibrio Not Detected Not [place] Detected [facility] Vibrio cholerae Not Detected Not [place] Detected [facility] Yersinia Not Detected Not [facility] enterocolitica Detected [facility] Enteroaggregative E. Not Detected Not [place] coli (EAEC) Detected [facility] Enteropathogenic E. Not Detected Not [place] coli (EPEC) Detected [facility] Enterotoxigenic E. Not Detected Not [place] coli (ETEC) Detected [facility] Shiga-like Not Detected Not [place] toxin-producing E. Detected [facility] (STEC) [facility] E. coli O157 Not Not CARLA GRIFFIN Applicable Detected [facility] Shigella/Enteroinvas Not Detected Not CARLA GRIFFIN rosales E. coli (EIEC) Detected [facility] Cryptosporidium Not Detected Not CARLA GRIFFIN Detected [facility] Cyclospora Not Detected Not CARLA GRIFFIN cayetanensis Detected [facility] Entamoeba Not Detected Not CARLA GRIFFIN histolytica Detected [facility] Giardia lamblia Not Detected Not [place] Detected [facility] Adenovirus F 40/41 Not Detected Not [place] MD Detected [facility] Astrovirus Not Detected Not [place] Detected [facility] Norovirus GI/GII Not Detected Not [place] Detected [facility] Rotavirus A Not Detected Not CARLA GRIFFIN Detected [facility] Sapovirus (I, II, IV Not Detected Not CARLA GRIFFIN and V) Detected [facility] Specimen Anatomical Collection Method Collection Time Receive d Time (Source) Location / / Volume Laterality Stool 02/07/2023 5:16 AM 6:13 CDT AM CDT Thao Soria MD MICROBIOLOGY - GENERAL ORDER [facility] Performing Organization Address City/State/ZIP Code Phon e Number [facility] Unless otherwise noted, [address] all lab tests performed by: Division of Pathology and Laboratory Medicine [facility] Gastrointestinal Multiplex Panel Path Review (02/07/2023 5:16 AM CDT) [facility] gist Method Time Signature GIMP NM Reviewed and Electronically signed by Pathologist: CARLA CHAVEZ MD #[id number] [facility] Comment: Performed by real-time PCR methodology. This [...] correlation is recommended. PATRICIA CHAVEZ MD - [id number] Dictated by: PATRICIA CHAVEZ MD - [id number] Dictated Date/Time: 02.07.2023 16:40 PM CDT Transcribed Date/Time: 02.07.2023 16:40 PM CDT Electronically Signed By: MD Suzie MARSHALL [id number] on 02.07.2023 16:40 PM Specimen Anatomical Collection Method Collection Time Receive d Time (Source) Location / / Volume Laterality Stool 02/07/2023 5:16 AM 6:13 CDT AM CDT Thao Soria MD LAB BLOOD ORDERABLES Performing Organization Address City/[facility] Phon e Number [facility] CANCER Unless otherwise noted, [address] all lab tests performed by: Division of Pathology and Laboratory Medicine [address] [place] [address] EKG, 12-Lead (Portable) (02/07/2023)Only the most recent of2 resultswithin the time period is included. Specimen (Source) Anatomical Location Collection Method / Collectio n Time Received Time / Laterality Volume Narrative This result has an attachment that is no t available. Romana Guy MD ECG ORDERABLES Performing Organization Address City/[facility]/ZIP [facility] Phon e Number DARI IECG NT-Pro BNP (In-House) (02/06/2023 3:05 AM CDT)Only the most recent of2 results within the time period is included. athologist Signature NT ProBNP 83 <=125 pg/mL [facility] Specimen Anatomical Collection Method Collection Time Receive d Time (Source) Location / / Volume Laterality Blood 02/06/2023 3:05 AM 3:20 CDT AM CDT Cathie Meneses SNUBBER,AGACNP LAB BLOOD ORDERABLES Performing Organization Address City/[facility] Phon e Number [facility] CANCER Unless otherwise noted, [address] all lab tests performed by: Division of Pathology and Laboratory Medicine [address] [place] [address] CRP (02/06/2023 3:05 AM CDT)Only the most recent of3 resultswithin the time period is included. P athologist Signature CRP 65.62 mg/L [facility] Comment: Reference ranges for HS CRP assay [...] 3 3:20 CDT AM CDT Cathie Meneses SNUBBER,AGAJHONYP LAB BLOOD ORDERABLES Performing Organization Address City/[facility] Phon e Number [facility] Unless otherwise noted, [address] all lab tests performed by: Division of Pathology and Laboratory Medicine Brian Hodges Troponin T (In-House) (02/06/2023 1:09 AM CDT)Only the most recent of2 results within the time period is included. P athologist Signature Troponin T 10 <=19 ng/L [facility] Comment: < 19 ng/L Suggest retest at [...] MD LAB BLOOD ORDERABLES Performing Organization Address City/[facility] Phon e Number [facility] Unless otherwise noted, [address] all lab tests performed by: Division of Pathology and Laboratory Medicine Brian Hodegs (ABNORMAL) Urine Culture (02/06/2023 12:40 AM CDT)Only the most recent of3 resultswithin the time period is included. [facility] Method Time Signature Final Report 10 - 50,000 cfu/ml Normal site isabel present. [place] MD Generally of low significance. [place] Correlate with clinical data and culture history. [facility]ER CENTER (A) Specimen Anatomical Collection Method Collection Time Receive d Time (Source) Location / / Volume Laterality Urine 02/06/2023 12:40 02/06/2023 2:54 AM CDT AM CDT Irina Houston APRN MICROBIOLOGY - GENERAL ORDER GODWIN Performing Organization Address City/State/ZIP Code Phon e Number [facility]ER Unless otherwise noted, [address] all lab tests performed by: Division of Pathology and Laboratory Medicine [facility] aPTT (02/05/2023 8:26 PM CDT)Only the most recent of5 resultswithin the time period is included. P athologist Signature aPTT 28.5 22.8 - 34.2 [facility] second(s) CANCER CENTER Specimen Anatomical Collection Method Collection Time Receive d Time (Source) Location / / Volume Laterality Blood 02/05/2023 8:26 PM 3 8:29 CDT PM CDT Deneen Guevara MD LAB BLOOD ORDERABLES Performing Organization Address City/[facility]/ZIP Code Phon e Number [facility] Unless otherwise noted, [address] all lab tests performed by: Division of Pathology and Laboratory Medicine [facility] VB Lactate (02/05/2023 8:26 PM CDT)Only the most recent of4 resultswithin the time period is included. P athologist Signature V Lactate 1.2 0.5 - 1.6 [facility] mmol/L [facility] Specimen Anatomical Collection Method Collection Time Receive d Time (Source) Location / / Volume Laterality Blood 02/05/2023 8:26 PM 3 8:29 CDT PM CDT Deneen Guevara MD LAB BLOOD ORDERABLES Performing Organization Address City/[facility]/ZIP Code Phon e Number [facility] Unless otherwise noted, [address] all lab tests performed by: Division of Pathology and Laboratory Medicine [facility]5 [address] (ABNORMAL) Prothrombin Time with INR (02/05/2023 8:26 PM CDT)Only the most recent of5 resultswithin the time period is included. P athologist Signature PT 14.7 (H) 11.9 - 14.1 [facility](s) CANCER CENTER INR 1.16 (H) 0.89 - 1.10 [facility] Specimen Anatomical Collection Method Collection Time Receive d Time (Source) Location / / Volume Laterality Blood 02/05/2023 8:26 PM 8:29 CDT PM CDT Deneen Guevara MD LAB BLOOD ORDERABLES Performing Organization Address City/[facility]/ZIP Code Phon e Number [facility] CAN[facility]ER Unless otherwise noted, [address] all lab tests performed by: Division of Pathology and Laboratory Medicine [address] (ABNORMAL) D Dimer (02/05/2023 8:26 PM CDT) athologist Signature D-Dimer 3.04 (H) 0.10 - 0.50 [facility] mcg/ml U CAN[facility] CENTER Comment: The cut off value for exclusion of venou s thromboembolism is <0.51 mcg/mL FEUs (fibrinogen equival ent units). Specimen Anatomical Collection Method Collection Time Receive d Time (Source) Location / / Volume Laterality Blood 02/05/2023 8:26 PM 8:29 CDT PM CDT Deneen Guevara MD LAB BLOOD ORDERABLES Performing Organization Address City/State/ZIP Code Phon e Number [facility] Unless otherwise noted, [address] all lab tests performed by: Division of Pathology and Laboratory Medicine [facility]5 [address]um X-ray Abdomen AP (02/05/2023 6:59 PM CDT) [...] of4 resultswithin the time period is included. [facility] Method Time Signature COVID19 Not Detected Not Detected CARLA GRIFFIN (SARS-CoV-2) [facility] COVID19 SARS Inpatient CARLA GRIFFIN Indication Admission [facility] Covid 19 See Note CARLA GRIFFIN Comment [facility] Comment: The ruby SARS-CoV-2 nucleic [...] fact sheet for patients provided by the hot pipe gauger ([employer]) can be reviewed at: https://www.fda.gov/media/456476/treasure hobson. A fact sheet for Health Care providers is provided by the hot pipe gauger ([employer]) and can be reviewed at: https://www.fda.gov/media/234433/download Results must be interpreted within the c [...] This assay has been authorized by the [facility] for use only under Emergency Use Authorization (EUA) in laboratories that have been CLIA-certified to perform moderate-complexity and high-complexity tests. The Microbiology Laboratory at [facility] [place], CLIA Accreditation #[id number] a nd CAP Accreditation #[id number], verified the performance characteristics of this assay. Internal controls are used to monitor all stages of the test process. Specimen (Source) Anatomical Collection Method Collection Time Re ceived Time Location / / Volume Laterality Nasopharyngeal Swab 02/05/2023 5:09 02/05 PM CDT 5:17 PM CDT Amanda Proctor MD MICROBIOLOGY - GENERAL ORDER GODWIN Performing Organization Address City/[facility] Phon e Number [facility]ER Unless otherwise noted, [address] all lab tests performed by: Division of Pathology and Laboratory Medicine [facility]5 [address] Lipase (02/05/2023 3:30 PM CDT)Only the most recent of4 resultswithin the time period is included. athologist Signature Lipase Lvl 18 13 - 60 U/L [facility] Specimen Anatomical Collection Method Collection Time Receive d Time (Source) Location / / Volume Laterality Blood 02/05/2023 3:30 PM 3 3:39 CDT PM CDT Amanda Proctor MD LAB BLOOD ORDERABLES Performing Organization Address City/[facility] Phon e Number [facility] Unless otherwise noted, [address] all lab tests performed by: Division of Pathology and Laboratory Medicine [facility]5 [address] Mangum CKMB (02/05/2023 3:30 PM CDT) athologist Signature CK MB <2.0 <=5.3 ng/mL [facility] Specimen Anatomical Collection Method Collection Time Receive d Time (Source) Location / / Volume Laterality Blood 02/05/2023 3:30 PM 3 3:39 CDT PM CDT Amanda Proctor MD LAB BLOOD ORDERABLES Performing Organization Address City/[facility] Phon e Number [facility] Unless otherwise noted, [address] all lab tests performed by: Division of Pathology and Laboratory Medicine [facility] [address]um Amylase Level (02/05/2023 3:30 PM CDT)Only the most recent of2 resultswithin the time period is included. P athologist Signature Amylase Lvl 43 28 - 100 [facility] U/L [facility] Specimen Anatomical Collection Method Collection Time Receive d Time (Source) Location / / Volume Laterality Blood 02/05/2023 3:30 PM 3 3:39 CDT PM CDT Amanda Proctor MD LAB BLOOD ORDERABLES Performing Organization Address City/State/ZIP Code Phon e Number [facility]ER Unless otherwise noted, [place] [address] [place] all lab tests performed by: Division of Pathology and Laboratory Medicine [address] [facility] (ABNORMAL) Urinalysis with Microscopic (02/05/2023 12:39 AM CDT) Patholo gist Method Time Signature UA Color [place] (A) Straw-Yel [facility] UA Appear Cloudy (A) Clear [facility] UA Glucose 500 (A) NEG mg/dL [facility] UA Bili NEG NEG [facility] UA Ketones 40 (A) NEG mg/dL [facility] UA Spec Grav 1.021 1.003 - [facility] 1.035 [facility] UA Blood NEG NEG [facility] UA pH 6.0 5.0 - 9.0 [facility] UA Protein 20 (A) NEG mg/dL [facility] UA Urobilinogen NEG NEG [facility] UA Nitrite NEG NEG [facility] UA Leuk Est NEG NEG [facility] UA WBC NOT SEEN 0 - 2 [place] MD /[facility] Comment: Some reporting parameters within the Uri nalysis test have changed due to the implementation of new instrumentation in the [facility] [place], allowing greater sensitivity of measurement. Urinalysis results rep orted by the [facility] using existing instrumentation, as well as Urinalysis t esting performed manually or by backup methodology at the [facility] [place] will remain relatively unchanged. New reporting parameters and units will not be reported for all campuses. UA RBC 13 (H) 0 - 2 /HPF [facility] UA Mucous NOT SEEN Not Seen-Trace /HPF [facility] UA Bacteria NOT SEEN NOT SEEN /HPF [facility] UA Squam Epi OCC None-Occasional /HPF [facility] [facility] Specimen Anatomical Collection Method Collection Time Receive d Time (Source) Location / / Volume Laterality Urine 02/05/2023 12:39 02/06/2023 AM CDT 12:42 AM CDT Irina Houston APRN URINE ORDERABLES Performing Organization Address City/State/ZIP Code Phon e Number [facility]CER Unless otherwise noted, [place] [address] CENTER all lab tests performed by: Division of Pathology and Laboratory Medicine [address] Tip Verification Central Vascular Access Device (01/29/2023 3:08 PM CDT) Narrative Justo Baunelos RN - 01/29/2023 3:08 PM CDT Justo Banuelos RN 01/29/2023 3:08 PM Central Vascular Access Device Tip Verif ication Performed by: Justo Banuelos RN Authorized by: Rashaun Wiley MD [employer] Date device placed: 01/29/2023 Placed by: Justo Banuelos RN Device placement location: 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 Pre-p rocedure the patient was alert. [...] placement. placement and tip verified using tip regulatory technician and place ment and tip verified by [...] [facility] Hgb 13.3 12.0 - 16.0 [facility] gm/dL CANCER [place] Specimen Anatomical Collection Method Collection Time Receive d Time (Source) Location / / Volume Laterality Blood 01/28/2023 8:24 AM 3 8:30 CDT AM CDT Mana Powers APRN LAB BLOOD ORDERABLES Performing Organization Address City/[facility]/ZIP [facility] Phon e Number [facility] CANCER Unless otherwise noted, [address] all lab tests performed by: Division of Pathology and Laboratory Medicine [address] Hematocrit (01/28/2023 8:24 AM CDT)Only the most recent of3 resultswithin the time period is included. athologist [facility] Hct 40.6 37.0 - 47.0 [facility] % [facility] Specimen Anatomical Collection Method Collection Time Receive d Time (Source) Location / / Volume Laterality Blood 01/28/2023 8:24 AM 3 8:30 CDT AM CDT Mana Powers APRN LAB BLOOD ORDERABLES Performing Organization Address City/[facility]/ZIP [facility] Phon e Number [facility] CANCER Unless otherwise noted, [address] all lab tests performed by: Division of Pathology and Laboratory Medicine [address] (ABNORMAL) Urinalysis Microscopic Exam (01/26/2023 10:45 PM CDT) athologist [facility] UA WBC 6 (H) 0 - 2 /HPF [facility] Comment: Some reporting parameters within the Uri nalysis test have changed due to the implementation of new instrumentation in the [facility] [place], allowing greater sensitivity of measurement. Urinalysis results rep orted by the [facility] using existing instrumentation, as well as Urinalysis t esting performed manually or by backup methodology at the [facility] [place] will remain relatively unchanged. New reporting parameters and units will not be reported for all campuses. UA RBC <1 0 - 2 /HPF [facility] UA Mucous NOT SEEN Not Seen-Trace /HPF [place] MD [facility] [place] UA Bacteria NOT SEEN NOT SEEN /HPF [facility] UA Squam Epi OCC None-Occasional /HPF [facility] Specimen Anatomical Collection Method Collection Time Receive d Time (Source) Location / / Volume Laterality Urine 01/26/2023 10:45 01/26/2023 PM CDT 10:49 PM CDT Amanda Proctor MD LAB BLOOD ORDERABLES Performing Organization Address City/[facility]/ZIP Code Phon e Number [facility] Unless otherwise noted, [address] all lab tests performed by: Division of Pathology and Laboratory Medicine [facility] [employer] Tracie (ABNORMAL) Urinalysis w/Microscopic if Indicated (01/26/2023 10:45 PM CDT)Only the most recent of2 resultswithin the time period is included. Analysis Performed At Patho logist Time Signature UA Color Straw [facility] UA Appear Clear Clear [facility] UA Glucose 500 (A) NEG mg/dL [facility] UA Bili NEG NEG [facility] UA Ketones NEG NEG mg/dL [facility] UA Spec Grav 1.020 1.003 - [facility] 1.035 [facility] UA Blood NEG NEG [facility] UA pH 5.5 5.0 - 9.0 [facility] UA Protein 30 (A) NEG mg/dL [facility] UA Urobilinogen NEG NEG [facility] UA Nitrite NEG NEG [facility] UA Leuk Est NEG NEG [facility] Specimen Anatomical Collection Method Collection Time Receive d Time (Source) Location / / Volume Laterality Urine 01/26/2023 10:45 01/26/2023 PM CDT 10:49 PM CDT Amanda Proctor MD URINE ORDERABLES Performing Organization Address City/[facility]/ZIP Code Phon e Number [facility] Unless otherwise noted, [address] all lab tests performed by: Division of Pathology and Laboratory Medicine [address] (ABNORMAL) LDH (01/26/2023 2:44 PM CDT)Only the most recent of3 resultswithin the time period is included. P athologist Signature LDH 289 (H) 135 - 214 [facility] U/L [facility] Comment: Results greater [...] Organization Address City/State/ZIP Code Phon e Number [facility] Unless otherwise noted, [place] [address] [place] all lab tests performed by: Division of Pathology and Laboratory Medicine [address] (ABNORMAL) Controlled Substance Monitoring Panel, Urine (01/20/2023 12:37 PM CDT) Analysis Performed At Patho logist Time Signature Urine 55.1 mg/dL [place] Creatinine [facility] Urine Specific 1.014 [place] Sodus [facility] Urine Ph 6.2 [facility] Urine Oxidants Negative Cutoff: KS 200 mg/L [facility] Urine Comment Normal [facility] U Negative Cutoff: [place] Barbiturates-Ma 200 ng/mL [facility] U Cocaine Negative Cutoff: [place] Lvl-Luu 150 ng/mL [facility] Comment: This cocaine immunoassay targets benzoyl ecgonine the primary metabolite of cocaine. U THC-Luu See Footnote (A) Cutoff: 50 ng/mL [facility] Comment: RESULT: Presumptive Positive This immunoassay targets [...] testing. Codeine Not Detected Cutoff: 25 ng/mL [place] MD AL[facility]A [facility] Comment: Tylenol 3 Ovzteos-2-uagm-glucuronide Not Detected Cutoff: 100 ng/mL [facility] Comment: Metabolite of codeine Morphine Not Detected Cutoff: 25 ng/mL [place] MD [facility] Comment: Martha Mary, MS Contin; Also a minor metabolite (10%) of codeine and can be seen in low concentra tions (<2,000 ng/mL) with poppy seed ingestion. Tglxcgqp-5-cnjl-glucuronide Not Detected Cutoff: 100 ng/mL [facility] Comment: Metabolite of morphine 6-monoacetylmorphine Not Detected Cutoff: 25 ng/mL [facility] Comment: Metabolite of heroin Hydrocodone Not Detected Cutoff: 25 ng/mL [place] MD [facility] Comment: Lortab, K[place], Vicodin; Also a very luci r metabolite of codeine and impurity (<1%) of oxycodone. Norhydrocodone Not Detected Cutoff: 25 ng/mL [facility] Comment: Metabolite of hydrocodone Dihydrocodeine Not Detected Cutoff: 25 ng/mL [facility] Comment: Metabolite of hydrocodone Hydromorphone Not Detected Cutoff: 25 ng/mL [facility] Comment: Dilaudid, Exalgo; Also a metabolite of h ydrocodone and a minor (<5%) metabolite of morphine. Sdixydemofpxm-4-vdwm-glucuronide Not Detected Cutoff: 100 [facility] ng/mL [facility] Comment: Metabolite of hydromorphone Oxycodone Present (A) Cutoff: 25 ng/mL [place] MD RUELAS [facility] Comment: Endocet, Percocet, Oxycontin Noroxycodone Present (A) Cutoff: 25 ng/mL [place] MD [facility] Comment: Metabolite of oxycodone Oxymorphone Not Detected Cutoff: 25 ng/mL [place] MD [facility] Comment: Numorphan, Opana; Also a metabo lite of oxycodone. Jjegicjguty-6-yhyv-glucuronide Not Detected Cutoff: 100 ng/mL [facility] Comment: Metabolite of oxymorphone and/o r naloxone (nornaloxone) Noroxymorphone Present (A) Cutoff: 25 ng/mL [facility] Comment: Metabolite of oxymorphone and/o r naloxone (nornaloxone) Fentanyl Not Detected Cutoff: 2 ng/mL [place] SU [facility] Comment: Actiq, Duragesic, Fentora Norfentanyl Not Detected Cutoff: 2 ng/mL [place] [facility] Comment: Metabolite of fentanyl Meperidine Not Detected Cutoff: 25 ng/mL [place] [facility] Comment: Demerol Normeperidine Not Detected Cutoff: 25 ng/mL [facility] Comment: Metabolite of meperidine Naloxone Not Detected Cutoff: 25 ng/mL [place] MD [facility] Comment: Narcan Kuxhermd-2-rxog-glucuronide Not Detected Cutoff: 100 ng/mL [facility] Comment: Metabolite of naloxone U Methadone Not Detected Cutoff: 25 ng/mL [place] MD [facility] Comment: Dolophine EDDP Not Detected Cutoff: 25 ng/mL [place] MD [facility] Comment: Metabolite of methadone Propoxyphene Not Detected Cutoff: 25 ng/mL [place] MD Benjamin [facility] Comment: Darvon, Darvocet Norpropoxyphene Not Detected Cutoff: 25 ng/mL [facility] Comment: Metabolite of propoxyphene Tramadol Not Detected Cutoff: 25 ng/mL [place] MD [facility] Comment: Tradol, Ultram, Ultracet O-desmethyltramadol Not Detected Cutoff: 25 ng/mL [facility] Comment: Metabolite of tramadol Tapentadol Not Detected Cutoff: 25 ng/mL [place] MD [facility] Comment: Nucynta Tfxqsyhorr-gafq-mmdtzjcnknk Not Detected Cutoff: 100 ng/mL [facility] Comment: Metabolite of tapentadol Buprenorphine Not Detected Cutoff: 5 ng/mL [place] MD Benjamin [facility] Comment: Buprenex, Suboxone Norbuprenorphine Not Detected Cutoff: 5 ng/mL [facility] Comment: Metabolite of buprenorphine Norbuprenorphine Glucuronide Not Detected Cutoff: 20 ng/mL [facility] Comment: Metabolite of buprenorphine Opioid Interpretation See Footnote [facility] Comment: Test detected the presence of oxycodone and one of its metabolites (noroxycodone) along with no roxymorphone (metabolite of oxymorphone). Suspect use of oxymorphone and/or oxycodone within the past three d ays. Trace amounts of oxycodone can be found as an impurity in oxymorphone. ADDITIONAL INFORMATIO N This test was developed and its performa nce characteristics determined by [facility] in a manner co nsistent with CLIA requirements. This test has not been sisi ared or approved by the U.S. Food and Drug Administration. Alprazolam Urine Present (A) Cutoff: 10 ng/mL [facility] Comment: Xanax Alpha-Hydroxyalprazolam Urine Present (A) Cutoff: 10 ng/mL [facility] Comment: Metabolite of Alprazolam Alpha-Hydroxyalprazolam Present (A) Cutoff: 50 ng/mL [facility] Glucuronide Urine [facility]ENT[facility] Comment: Metabolite of Alprazolam Chlordiazepoxide Urine Not Detected Cutoff: 10 ng/mL [facility] Comment: Librium Colbazam Urine Not Detected Cutoff: 10 ng/mL [facility] Comment: Frisium, Onfi N-Desmethylclobazam Urine Not Detected Cutoff: 200 ng/mL [facility] Comment: Metabolite of Clobazam Clonazepam Urine Not Detected Cutoff: 10 ng/mL [facility] Comment: Klonopin, Rivotril 7-Aminoclonazepam Urine Not Detected Cutoff: 10 ng/mL [facility] Comment: Metabolite of Clonazepam Diazepam Urine Not Detected Cutoff: 10 ng/mL [facility] Comment: Valium Nordiazepam Urine Not Detected Cutoff: 10 ng/mL [facility] Comment: Metabolite of Chlordiazepoxide, Diazepam, or Prazepam. Flunitrazepam Urine Not Detected Cutoff: 10 ng/mL [facility] Comment: Rohypnol 7-Aminoflunitrazepam Urine Not Detected Cutoff: 10 ng/mL [facility] Comment: Metabolite of Flunitrazepam FlUrinerazepam Urine Not Detected Cutoff: 10 ng/mL [facility] Comment: Dalmane 2-Hydroxy Ethyl Flurazepam Not Detected Cutoff: 10 ng/mL [facility] Comment: Metabolite of Flurazepam Lorazepam Urine Not Detected Cutoff: 10 ng/mL [facility] Comment: Ativan Lorazepam Glucuronide Not Detected Cutoff: 50 ng/mL [facility] Comment: Metabolite of Lorazepam Midazolam Urine Not Detected Cutoff: 10 ng/mL [facility] Comment: Versed Alpha-Hydroxy Midazolam Not Detected Cutoff: 10 ng/mL [facility] Comment: Metabolite of Midazolam Oxazepam Urine Not Detected Cutoff: 10 ng/mL [facility] Comment: Serax; Also a metabolite of Chlordiazepo xide, Diazepam, or Temazepam. Oxazepam Glucuronide Urine Not Detected Cutoff: 50 ng/mL [facility] Comment: Metabolite of Oxazepam Prazepam Urine Not Detected Cutoff: 10 ng/mL [facility] Comment: Centrax Temazepam Urine Not Detected Cutoff: 10 ng/mL [facility] Comment: Restoril; Also a metabolite of Diazepam. Temazepam Glucuronide Not Detected Cutoff: 50 ng/mL [facility] Comment: Metabolite of Temazepam Triazolam Urine Not Detected Cutoff: 10 ng/mL [facility] Comment: Halcion Alpha-Hydroxy Triazolam Not Detected Cutoff: 10 ng/mL [facility] Comment: Metabolite of Triazolam Zolpidem Urine Not Detected Cutoff: 10 ng/mL [facility] Comment: Ambien Zolpidem Amlfh-2-Xmywkpkbqq Present (A) Cutoff: 10 ng/mL [facility] Acid Urine [facility] Comment: Metabolite of Zolpidem Benzodiazepine Interp Urine See Footnote [facility] Comment: Test detected the presence of alprazolam and two of its metabolites (alpha-hydroxyalprazolam and alpha-hydroxyalprazolam glucuronide). Agarwal spect use of alprazolam within the past three days. Test detected the presence of zolpidem p xedxn-0-nelbzlwkpv acid (metabolite of zolpidem) only. Susp ect use of zolpidem within the past four days. ADDITIONAL INFORMATIO N This test was developed and its performa nce characteristics determined by [facility] in a manner co nsistent with CLIA requirements. This test has not been sisi ared or approved by the U.S. Food and Drug Administration. Methamphetamine Not Detected Cutoff: 100 ng/mL [facility] Comment: Desoxyn Amphetamine Not Detected Cutoff: 100 ng/mL [facility] Comment: Dyanavel XR, Adzenys ER, Adderall, Vyvan se; Also a metabolite of methamphetamine 3,4-Methylenedioxymethamphetamine Not Detected Cutoff: 100 [facility] (MDMA) ng/mL [facility] 3,0-Gvckhsozajwaxi-B-Ethylamphetamine Not Detected Cutoff: 100 [facility] (MDEA) ng/mL [facility] 3,4-Methylenedioxyamphetamine (MDA) Not Detected Cutoff: 100 [facility] ng/mL [facility] Comment: Also a metabolite of MDMA and/o r MDEA Ephedrine Not Detected Cutoff: 100 ng/mL [facility] Pseudoephedrine Present (A) Cutoff: 100 ng/mL [facility] Comment: Sudafed Phentermine Not Detected Cutoff: 100 ng/mL [facility] Comment: Adipex-P, Lomaira, Qsymia Phencyclidine (PCP) Not Detected Cutoff: 20 ng/mL [facility] Methylphenidate Not Detected Cutoff: 20 ng/mL [facility] Comment: Ritalin, Concerta Ritalinic acid Not Detected Cutoff: 100 ng/mL [facility] Comment: Metabolite of methylphenidate Stimulant Interpretation See Footnote [facility] Comment: Test detected the presence of pseudoephe drine. Suspect use of pseudoephedrine within the past three days. ADDITIONAL INFORMATIO N This test was developed and its performa nce characteristics determined by [facility] in a manner co nsistent with CLIA requirements. This test has not been sisi ared or approved by the U.S. Food and Drug Administration. Test Performed by: [facility] [place][note 2] [address] [id number] 23 Screwhead Polisher: Yonathan Guzman M.D. Ph. D.; CLIA# [id number] Patients Current Medications NOT ANSWERED [facility] Comment: ADDITIONAL INFORMATIO N Accuracy and completeness of declared me dications on reports solely dependent on information submitted by client. Specimen Anatomical Collection Method Collection Time Receive d Time (Source) Location / / Volume Laterality Urine 01/20/2023 12:37 01/20/2023 8:31 PM CDT PM CDT Rogerio Kramer MD URINE ORDERABLES Performing Organization Address City/State/ZIP Code Phon e Number [facility] Unless otherwise noted, [address] all lab tests performed by: Division of Pathology and Laboratory Medicine [address] [facility] (ABNORMAL) POC Urine Drug Screen (01/20/2023 12:37 PM CDT) athologist Signature POC U Amp Negative Negative [facility] Comment: Drug Abuse Cutoff Concentration: Cutoff: 1000 ng/mL POC U Barbit Negative Negative [facility] Comment: Drug Abuse Cutoff Concentration: 300 ng/mL POC U Benzo Positive (A) Negative [facility] Comment: Drug Abuse Cutoff Concentration: Cutoff: 300 ng/ mL POC U Cocaine Negative Negative [facility] [place] Comment: Drug Abuse Cutoff Concentration: Cutoff: 300 ng/mL POC U THC Positive (A) Negative [facility] Comment: Drug Abuse Cutoff Concentration: Cutoff: 50 ng/mL POC U Methd Negative Negative [facility] Comment: Drug Abuse Cutoff Concentration: Cutoff: 300 ng/mL POC U Mampht Negative Negative [facility] Comment: Drug Abuse Cutoff Concentration: Cutoff: 1000 ng/mL POC U Opiate Negative Negative [facility] Comment: Drug Abuse Cutoff Concentration: Cutoff: 2000 ng/mL POC U Oxycod Positive (A) Negative [facility] Comment: Drug Abuse Cutoff Concentration: Cutoff: 100 ng/mL Due to the assay cross reactivity betwee n Oxycodone and Opiates, and lower sensitivity compared to GC-MS method, the test results may be falsely positive or falsely negative. Confirmation with concurrent GC-MS results is recommended. POC U PCP Negative Negative [facility] Comment: Drug Abuse Cutoff Concentration: Cutoff: 25 ng/mL POC U TCA Negative Negative [facility] Comment: Drug Abuse Cutoff Concentration: Cutoff: 1000 ng/mL POC U PPX Negative Negative [facility] Comment: Drug Abuse Cutoff Concentration: Cutoff: [...] 1:10 Catch PM CDT PM CDT Narrative [facility] - 1:30 PM CDT The POC Urine Qualitative Drug Screen Pa augusto report is intended for use in clinical monitoring or management of patients. Un confirmed screening results must not be used for non-medical purposes such as legal o r employment-related testing. Rogerio Kramer MD POINT OF CARE TEST ORDERA BLES Performing Organization Address City/State/ZIP Code Phon e Number [facility] Unless otherwise noted, [place] [address] [place] all lab tests performed by: Division of Pathology and Laboratory Medicine Jasmyne Michelle Hodges Tetrahydocannabinol (THC), Quantitative, Urine (01/20/2023 12:37 PM CDT) P athologist Signature U THC n/a CARLA GRIFFIN GC/MS[facility] U THC see note CARLA [facility] Comment: Carboxy-THC Confirmation, U: Carboxy-THC Interpretation: Positive ADDITIONAL INFORMATION: This report is intended for use in clini mari monitoring and management of patients. It is not intend ed for use in employment-related testing. Delta-8 Carboxy-Tetrahydrocannabinol by LC-MS/MS: 672 ng/mL Reference Value: Cutoff: 5 Delta-9 Carboxy-Tetrahydrocannabinol by LC-MS/MS: 42 ng/mL Reference Value: Cutoff: 5 PERFORMING LAB: [address] [place] [id number] Yonathan Guzman M.D. Ph.D. [id number] U THC [facility] n/a [facility] Specimen Anatomical Collection Method Collection Time Receive d Time (Source) Location / / Volume Laterality Urine, Clean 01/20/2023 12:37 01/27/2023 Catch PM CDT 11:34 AM CDT Rogerio Kramer MD URINE ORDERABLES Performing Organization Address City/State/ZIP Code Phon e Number [facility] Unless otherwise noted, [place], [place] [id number] [place] [address] all lab tests performed by: Division of Pathology and Laboratory Medicine [address] X-ray Knee 1 Or 2 Views Right [...] OU - Both Eyes (12/29/2022 10:51 AM [employer]) Specimen (Source) Anatomical Location Collection Method / Collectio n Time Received Time / Laterality Volume Suzanne Hill MD - 12/30/2022 11:50 AM [employer] Right Eye Threshold was 30-2. The AVF [...] OU - Both Eyes (12/29/2022 10:43 AM [employer]) Specimen (Source) Anatomical Location Collection Method / Collectio n Time Received Time / Laterality Volume Suzanne Hill MD - 12/30/2022 11:44 AM [employer] Normal average thickness of peripapillary retinal nerve fiber layer . With borderline thinning temporally righ t eye Suzanne Mcgrath MD OPHTHALMOLOGY IMG ORDERABLES OCT, Retina - OU - Both Eyes (12/29/2022 10:43 AM [employer]) Specimen (Source) Anatomical Location Collection Method / Collectio n Time Received Time / Laterality Volume Suzanne Hill MD - 12/30/2022 11:44 AM [employer] This result has an attachment that is no t available. Normal macular volume. No sign of serou s retinopathy Suzanne Mcgrath MD OPHTHALMOLOGY IMG ORDERABLES COVID-19 (SARS-CoV-2) PCR-Asymptomatic [facility] (12/23/2022 12:01 PM [employer]) [facility] Method Time Signature COVID19 (SARS Not Detected Not Detected [facility] MD CoV-2) [facility] Comment: This test is a qualitative reverse-trans criptase polymerase chain reaction (RT- PCR) developed for the Myrna RUBY 6800 system and intended for qualitative detection of SARS CoV-2 RNA in nasopharyngeal a nd oropharyngeal swab specimens collecte d from any individuals, including those suspected o f COVID-19 by their healthcare provider, and those without symptoms or other reasons to suspect COVID-19. A fact sheet for patients provided by the hot pipe gauger ( [employer]) can be rev iewed at: https://www.fda.gov/media/077951/downloa d. A fact sheet for Health Care providers is provided by the hot pipe gauger ([employer]) and can be reviewed at: https://www.fda.gov/media/491308/download Results must be interpreted within the c [...] were verified by the Microbiology Laboratory at [facility] [place], CLIA Accreditation #: [id number] and CAP Accreditation #: [id number]. COVID19 SARS Source KENO CLERK Swab [place] MD [facility] COVID19 SARS Indication Pre-Radiation Therapy [facility] Specimen (Source) Anatomical Collection Method Collection Time Re ceived Time Location / / Volume Laterality Nasopharyngeal Swab 12/23/2022 12:01 0212/2022 PM [employer] 3:41 PM [employer] Winter Luu MD MICROBIOLOGY - GENERAL ORDER GODWIN Performing Organization Address City/State/ZIP Code Phon e Number [facility]CER Unless otherwise noted, [place] [address] [place] all lab tests performed by: Division of Pathology and Laboratory Medicine [address] OCT, Optic Nerve - OU - Both Eyes (12/15/2022 10:37 AM [employer]) Specimen (Source) Anatomical Location Collection Method / Collectio n Time Received Time / Laterality Volume Narrative hSeridan Alvarez MD - 12/17/2022 12:25 PM [employer] Right Eye Average nerve fiber layer thickness cons istent with normal Left Eye Average nerve fiber layer thickness cons istent with normal Sheridan Alvarez MD OPHTHALMOLOGY IMG ORDERABLES OCT, Retina - OU - Both Eyes (12/15/2022 10:37 AM [employer]) Specimen (Source) Anatomical Location Collection Method / Collectio n Time Received Time / Laterality Volume Narrative Sheridan Alvarez MD - 12/17/2022 12:25 PM [employer] Right Eye This is the baseline exam. Findings incl ude normal observations. Left Eye This is the baseline exam. Findings incl ude normal observations. Sheridan Alvarez MD OPHTHALMOLOGY IMG ORDERABLES Fundus Photos - OU - Both Eyes (12/15/2022 10:37 AM [employer]) Specimen (Source) Anatomical Location Collection Method / Collectio n Time Received Time / Laterality Volume Narrative Sheridan Alvarez MD - 12/17/2022 12:25 PM [employer] Right Eye Basline Exam. Sheridan Alvarez MD OPHTHALMOLOGY IMG ORDERABLES 3D Dental Imaging (iCAT) (12/15/2022 8:42 AM [employer]) Specimen (Source) Anatomical Location Collection Method / Collectio n Time Received Time / Laterality Volume Narrative Systemgenerated, Documentation - 023 8:42 AM [employer] This procedure requires no interpretatio n from the radiologist. Benito Saini DDS IMG NON DI ORDERABLES [place] Modified Barium Swallow w Speech (12/14/2022 2:37 PM [employer]) Anatomical Region Laterality Modality Neck Radio Fluoroscopy Specimen (Source) Anatomical Collection Method Collection Time Re ceived Time Location / / Volume Laterality 12/14/2022 2:58 PM [employer] Impressions 12/14/2022 3:08 PM [employer] 1. Flash penetration without aspiration seen with thin liquid barium. 2. Please refer to the separately dictat ed speech pathology report for further details and recommendations. 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 There was no pharyngeal residue. Pharyngeal contraction was symmetric. Procedure Note Erica Miller V, PA - 12/14/2022Form atting of this note [...] liquid barium. 2. Please refer to the [facility] ed speech pathology report for further details and recommendations. Travis Lopez MD IMG FLUOROSCOPY ORDERABLES (ABNORMAL) ABG Venous (12/11/2022 6:21 PM [employer]) athologist [facility] pH Raghavendra 7.40 7.32 - 7.43 [facility] Comment: Results are corrected for a bod y temp of 37C pCO2 Raghavendra 47.6 41.0 - 51.0 mmHg [place] MD YADAV [email or web address]] pO2 Raghavendra 52 mmHg [facility] HCO3 Raghavendra 29 (H) 21 - 28 mmol/L [facility] Base Excess Raghavendra 3 -2 - 3 mmol/L [place] MD [facility] O2 Sat Raghavendra 87 % [facility] Specimen Anatomical Collection Method Collection Time Receive d Time (Source) Location / / Volume Laterality Blood 12/11/2022 6:21 PM 3 6:29 [employer] PM [employer] Travis Lopez MD LAB BLOOD ORDERABLES Performing Organization Address City/State/ZIP Code Phon e Number [facility] CANCER Unless otherwise noted, [address] all lab tests performed by: Division of Pathology and Laboratory Medicine [address] [place] [address] Mang[place] Ketone Bodies Qualitative (12/11/2022 5:19 PM [employer]) athologist [facility] UA Ketones NEG NEG mg/dL [facility] Specimen Anatomical Collection Method Collection Time Receive d Time (Source) Location / / Volume Laterality Urine 12/11/2022 5:19 PM 3 5:24 [employer] PM [employer] Waleska Salinas SNUBBER URINE ORDERABLES Performing Organization Address City/[facility]/ZIP Code Phon e Number [facility] Unless otherwise noted, [address] all lab tests performed by: Division of Pathology and Laboratory Medicine [facility]5 [place]lyd POC Critical (12/11/2022 3:34 PM [employer])Only the most recent of2 resultswithin the time period is included. athologist Signature POC Critical See Note POC [facility] Comment Comment: Test performer notified Orderin g Licensed Provider and /or designee of POC Glucose Screen critical Results.. Specimen Anatomical Collection Method Collection Time Receive d Time (Source) Location / / Volume Laterality Blood 12/11/2022 3:34 PM 3 3:34 [employer] PM [employer] Travis Lopez MD POINT OF CARE TEST ORDERABLE S Performing Organization Address City/State/ZIP Code Phon e Number POC [facility] Unless otherwise noted, [place] [address] lab tests performed by: Division of Pathology and Laboratory Medicine [address] [place] [address] (ABNORMAL) POC VBG+Lac (12/09/2022 9:36 PM [employer]) athologist Signature POC VB pH 7.46 (H) [...] Clean Dev Yes POC [facility] Performing Lab [facility] POC TELCO R Comment: [facility], [address] [place] [id number]; Lab Direct or: Chula Jacob MD; Waived Point of Care Testing - Gabrielle Mueller MD Specimen Anatomical Collection Method Collection Time Receive d Time (Source) Location / / Volume Laterality Blood 12/09/2022 9:36 PM 3 9:36 [employer] PM [employer] Roberto Carlos Walsh MD POCT ORDERABLES - DEVICE Performing Organization Address City/State/ZIP Code Phon e Number POC [facility] Unless otherwise noted, [place] [address] lab tests performed by: Division of Pathology and Laboratory Medicine [address] Ammonia Level (12/09/2022 6:01 PM [employer]) P athologist Signature Ammonia 18 11 - 51 [facility] mcmol/L [facility] Specimen Anatomical Collection Method Collection Time Receive d Time (Source) Location / / Volume Laterality Blood 12/09/2022 6:01 PM 6:15 [employer] PM [employer] Tammy Mike MD LAB BLOOD ORDERABLES Performing Organization Address City/State/ZIP Code Phon e Number [facility] Unless otherwise noted, [address] all lab tests performed by: Division of Pathology and Laboratory Medicine [facility] Michelle LOUIS MD, MDA CHRISTINE: Mutation Analysis Precision Panel Report (12/04/2022 10:56 AM [employer]) Specimen (Source) Anatomical Collection Method Collection Time Re ceived Time Location / / Volume Laterality 12/04/2022 10:56 AM [employer] Narrative This result has an attachment that is no t available. Lornea LOUIS [facility] (MISSY GRIFFIN) Solid Tumor Genomic Assay Fusions 2018 Interpretation and Report (12/04/2022 10:56 AM [employer]) Specimen Anatomical Collection Method Collection Time Receive d Time (Source) Location / / Volume Laterality 12/04/2022 10:56 12/04/2022 AM [employer] 10:56 AM [employer] Narrative This result has an attachment that is no t available. Lorena Hdez APRN, MDA [facility] (MISSY GRIFFIN) Molecular Diagnostics Specimen Collection -FFPE (12/04/2022 10:56 AM [employer]) Patholo gist Method Time Signature Molecular Yes [place] MD Longo [facility] (Received) [facility] Jael Ap Link [id number] [facility] [place] Block Number BLANK [place] (Qualitative) [facility] Outside [id number] [place] MD Matamoros [facility] (Qualitative) [facility] Specimen Anatomical Collection Method Collection Time Receive d Time (Source) Location / / Volume Laterality FFPE 12/04/2022 10:56 12/04/2022 AM [employer] 10:56 AM [employer] Lorena Hdez SNUBBER MDA HP MD ZAPATA COLLECTIO NS Performing Organization Address City/State/ZIP Code Phon e Number [facility] Unless otherwise noted, [place] [address] CENTER all lab tests performed by: Division of Pathology and Laboratory Medicine [address] [facility] MRI Skull Base with and without Contrast (11/30/2022 11:12 AM [employer]) Anatomical Region Laterality Modality Head Magnetic Resonance Specimen (Source) Anatomical Collection Method Collection Time Re ceived Time Location / / Volume Laterality 12/01/2022 9:21 AM [employer] Impressions 12/01/2022 1:06 PM [employer] 1. 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 2. Tumor likely involves the lesser wi ng of the left sphenoid bone. 3. No lateral retropharyngeal or visua lized cervical adenopathy. Narrative 12/01/2022 1:06 PM [employer] FULL RESULT: Examination: MRI SKULL BASE WITH [...] or visuali zed cervical adenopathy. Lorena Hdez APRN IMG MRI ORDERABLES PETCT Contrast Enhanced Initial Treatment Strategy (11/27/2022 3:57 PM [employer]) Anatomical Region Laterality Modality Whole Body Positron Emission To mography (PET) Specimen (Source) Anatomical Collection Method Collection Time Re ceived Time Location / / Volume Laterality 11/30/2022 8:31 AM [employer] Impressions 11/30/2022 8:38 AM [employer] Subtle activity associated with subtle asymmetric fullness in posterior left nasal pharynx is compatible with reported primary tumor. No suspicious activity to suggest regional jeremiah or distant metastases. Narrative 11/30/2022 8:38 AM [employer] FULL RESULT: Examination: Contrast-Enhanced FDG PET /CT, [...] ORDERABLES NGS Blood Control (11/26/2022 1:07 PM [employer]) P athologist Signature Molecular Yes [facility] [place] (Received) Specimen Anatomical Collection Method Collection Time Receive d Time (Source) Location / / Volume Laterality Blood 11/26/2022 1:07 PM 3 9:13 [employer] AM [employer] Lorena Kayla Hdez SNUBBER MDA IP HP MOLECULAR DIAG IF ORDERABLES Performing Organization Address City/State/ZIP Code Phon e Number [facility] Unless otherwise noted, [place] [address] CENTER all lab tests performed by: Division of Pathology and Laboratory Medicine [address] (ABNORMAL) Vitamin D 25OH (11/26/2022 1:07 PM [employer]) athologist [facility] Vitamin D 25 OH 21 (L) 30 - 100 [facility] ng/mL Comment: Reference Range: Deficiency: <10 ng/mL Insufficiency: 10-29 ng/mL Sufficiency: 30-100 ng/mL Potential toxicity: >100 ng/mL Testing performed at [facility], [address] [place] [address] Specimen Anatomical Collection Method Collection Time Receive d Time (Source) Location / / Volume Laterality Blood 11/26/2022 1:07 PM 3 1:19 [employer] PM [employer] Lorena Hdez APRN LAB BLOOD ORDERABLES Performing Organization Address City/[facility]/ZIP Code Phon e Number [address] (ABNORMAL) Uric Acid (11/26/2022 1:07 PM [employer]) [facility] 6.5 (H) 2.4 - 5.7 EADS mg/dL Comment: Testing performed at [facility], [address] [place] [address] Specimen Anatomical Collection Method Collection Time Receive d Time (Source) Location / / Volume Laterality Blood 11/26/2022 1:07 PM 3 1:19 [employer] PM [employer] Lorena Hdez APRN LAB BLOOD ORDERABLES Performing Organization Address City/[facility]/ZIP Code Phon e Number [address] MD [id number] Fusion Material Request (11/26/2022 12:43 PM [employer]) Component Value Ref Test Analysis Performed At [facility] gist Range Method Time Signature Archived The test is to be 12/04/2022 MDA [facility] Material performed on 8:01 AM [employer] tissue from case [id number]. The case report, slides, and blocks for [...] Volume Laterality Tissue 11/26/2022 12:43 11/26/2022 PM [employer] 12:43 PM [employer] Lorena Hdez APRN [facility] IP AP BIOMARKERS Performing Organization Address [facility] e Number [facility] [place] [address] 1515 Michelle Hodges MD NTRK2 Fusion Material Request (11/26/2022 12:43 PM VP OF [employer]) Component Value Ref Test Analysis Performed At [facility] [employer] Method Time Signature Archived The test is to be 12/04/2022 [facility] Material performed on 8:01 AM VP OF DIG[employer] MARKETING tissue from case [id number]. The case report, slides, and blocks for [...] Volume Laterality Tissue 11/26/2022 12:43 11/26/2022 PM [employer]ET[employer] 12:43 PM VP OF D[employer]ITAL MARKETING Lorena Hdez APRN [facility] IP AP BIOMARKERS Performing Organization Address [facility] Phon e Number [facility] [place] [address] 151 Michelle Hodges MD NTRK1 Fusion Material Request (11/26/2022 12:43 PM [employer]) Component Value Ref Test Analysis Performed At [facility] gist Range Method Time Signature Archived The test is to be 12/04/2022 [facility] Material performed on 8:01 AM [employer] tissue from case [id number]. The case report, slides, and blocks for [...] Volume Laterality Tissue 11/26/2022 12:43 11/26/2022 PM [employer] 12:43 PM [employer] Lorena Hdez APRN [facility] IP AP BIOMARKERS Performing Organization Address [facility] [place] [address] 1515 Michelle Hodges MD ERBB2 Mutation Analysis Material Request (11/26/2022 12:43 PM VP OF D[employer]ET[employer]) Component Value Ref Test Analysis Performed At [facility] [employer] Range Method Time Signature Archived The test is to be 12/04/2022 [facility] Material performed on 8:01 AM [employer] tissue from case [id number]. The case report, slides, and blocks for [...] Volume Laterality Tissue 11/26/2022 12:43 11/26/2022 PM [employer]ETING 12:43 PM [employer] OF D[employer] MARKETING Lorena Hdez APRN [facility] IP AP BIOMARKERS Performing Organization Address [facility] [place] [address] 1515 Michelle Hodges MD ALK Mutation Analysis Material Request (11/26/2022 12:43 PM VP [employer]) Component Value Ref Test Analysis Performed At [facility] Method Time Signature Archived The test is to be 12/04/2022 [facility] Material performed on 8:02 AM [employer] tissue from case [id number]. The case report, slides, and blocks for [...] Volume Laterality Tissue 11/26/2022 12:43 11/26/2022 PM [employer]ET[employer] 12:43 PM VP OF [employer] MARKETING Lorena Hdez APRN [facility] AP BIOMARKERS Performing Organization Address City/State/ZIP Code Phon e Number [facility] [place] [address] 1515 Michelle Hodges MD MTOR Mutation Material Request (11/26/2022 12:43 PM VP OF [employer]) Component Value Ref Test Analysis Performed At [facility] Method Time Signature Archived The test is to be 12/04/2022 [facility] Material performed on 8:01 AM [employer]ET[employer] tissue from case [id number]. The case report, slides, and blocks for [...] Volume Laterality Tissue 11/26/2022 12:43 11/26/2022 PM [employer]ETING 12:43 PM VP OF D[employer] MARKETING Lorena Kayla Hdez APRN [facility] IP AP BIOMARKERS Performing Organization Address City/State/ZIP Code [place] [address] 1515 Michelle Hodges MD PTEN Mutation Material Request (11/26/2022 12:43 PM VP OF [employer]ET[employer]) Component Value Ref Test Analysis Performed At [facility] Method Time Signature Archived The test is to be 12/04/2022 [facility] Material performed on 8:02 AM [employer] tissue from case [id number]. The case report, slides, and blocks for [...] Volume Laterality Tissue 11/26/2022 12:43 11/26/2022 PM [employer] OF D[employer]ETING 12:43 PM VP OF D[employer]ITAL MARKETING Lorena Kayla Hdez APRN [facility] IP AP BIOMARKERS Performing Organization Address City/[facility]/ZIP Code [place] [address] 1515 Michelle Hodges MD EGFR Mutation Material Request (11/26/2022 12:43 PM VP OF [employer]ETING) Component Value Ref Test Analysis Performed At [facility] Method Time Signature Archived The test is to be 12/04/2022 [facility] Material performed on 8:02 AM [employer] tissue from case [id number]. The case report, slides, and blocks for [...] Volume Laterality Tissue 11/26/2022 12:43 11/26/2022 PM [employer] 12:43 PM VP OF [employer] MARKETING Lorena Hdez APRN [facility] IP AP BIOMARKERS Performing Organization Address City/State/ZIP Code [place] [address] 1515 Michelle Mangum IHC PD-L1 Material Request (11/26/2022 12:43 PM VP OF D[employer] MARKETING) Specimen Anatomical Collection Method Collection Time Receive d Time (Source) Location / / Volume Laterality Tissue 11/26/2022 12:43 11/26/2022 PM [employer] 12:43 PM VP OF D[employer] MARKETING Lorena Hdez APRN [facility] IP AP BIOMARKERS Performing Organization Address City/[facility]/ZIP Code [place] [address] 1515 Michelle Mangum IHC HER2/arcenio Material Request (11/26/2022 12:43 PM VP OF D[employer] MARKETING) Specimen Anatomical Collection Method Collection Time Receive d Time (Source) Location / / Volume Laterality Tissue 11/26/2022 12:43 11/26/2022 PM [employer]ING 12:43 PM VP OF D[employer] MARKETING Lorena Hdez APRN [facility] IP AP BIOMARKERS Performing Organization Address City/[facility]/ZIP Code [place] [address] 1515 Keaton Mangum Testosterone Level (11/17/2022 12:11 PM VP OF DIGITAL MARKETING) athologist Signature Testoster Tot <3 3 - 41 EADS ng/dL Comment: Reference Ranges: Male: Age 20 - 49 249 - 836 Age >=50 1 93 - 740 Female: Age 20 - 49 8 - 48 Age >=50 3 - 41 [facility] [address] [place] [address] Specimen Anatomical Collection Method Collection Time Receive d Time (Source) Location / / Volume Laterality Blood 11/17/2022 12:11 11/17/2022 PM [employer]ETING 12:12 PM VP OF DIGITAL MARKETING Red Berman SNUBBER LAB BLOOD ORDERABLES Performing Organization Address City/[facility]/ZIP Code Phon e Number [place] [phone] [place] [address] Pathology Outside Interpretation (10/16/2022) Component Value Ref Test Analysis Performed Pathologis t Range Method Time At [facility] Accession#, Stained, Block, Unstained Collected Received 11/27/2022 3Nod Received A. [id number], 7 SS, 1 BLOCKS, 0 USS 10/16/2022 11/24/2022 5:08 PM VP OF DIGITAL MARKETING Addendum 1 At the request of the donell physician the following studies were performed and interpreted at [facility]. 11/27/2022 [employer] [facility] Addendum 5:08 PM electronic ally The tumor cells are negative for Her2 (0%) by immunohi stochemical analysis. 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 MD Gerald on 11/27/2022 at PD-L1 (Clone 22C3, [employer]) Combine d Positive Score (CPS): is less than 1 5:08 PM Assay Information: This assa y is manufactured by [employer] and uses a monoclonal anti-PD-L1, clone 22C3. It is performed on formalin-fixed paraffin- embedded tissue using an [employer] Dako autostainer a nd polymer based detection k it, as specified by the hot pipe gauger. It is approved for use as a dean of girls diagnostic for specific therapies on certain tumor [...] is defined as CPS 100. Diagnosis Outside ([id number], 7 SS, 1 BLOCKS, 0 USS, colle cted on 10/16/2022): 11/27/2022 [employer] [facility]S Electronically 5:08 PM signed by Nasopharynx, biopsy: VP OF DIGITAL MARKETING Ashleigh ADENOID CYSTIC CARCINOMA, CRIBRIFORM TYPE see comment MD Gerald on 11/26/2022 at EARL/SALEEM 9:43 AM Comment Submitted 11/27/2022 [facility] immunohistochemical 5:08 PM stains performed by VP OF DIGITAL MARKETING referring institution show that CK7 highlights the epithelial cells, and p63 and p40 highlights the myoepithelial cells. The morphology and immunophenotype is supportive of this classification. Biomarker Tumor block: 11/27/2022 [facility] Block(s) [id number] 5:08 PM VP OF DIGITAL MARKETING Disclaimer "Some tests reported 11/27/2022 [facility] here may have been 5:08 PM developed and VP OF D[employer]ITAL MARKETING performance characteristics determined by [facility] Medicine. These tests have not been specifically cleared or approved by the U.S. Food and Drug Administration. If applicable, controls were reviewed and showed appropriate reactivity." Specimen (Source) Anatomical Collection Method Collection Time Re ceived Time Location / / Volume Laterality Tissue 10/16/2022 11/24/2022 3:02 PM VP OF DIGITAL MARKETING Alexa Alvarez MD LAB PATHOLOGY ORDERABLES Performing Organization Address City/State/ZIP Code Phon e Number [facility] AP LABS [facility] [place] [address] 1515 Keaton Mangum after 05/18/2022 Insurance Payer Benefit Plan / Subscriber ID Effective Phone Address T ype Group Dates MEDICARE MEDICARE PART A [id number] 2010-Pres [phone] [place] Medicare AND B ent 782 [employer] [address] [place] [facility] [place] [id number] [place] [id number] 2022-Pres [address] Medicaid TRADITIONAL TRADITIONAL [place] [id number] [place] [address] Advance Directives Code Status Date Activated Date Inactivated Comments Full Code 02/06/2023 1:33 AM 02/16/2023 6:41 PM Code Status Date Activated Date Inactivated Comments Full Code 01/26/2023 5:50 PM 02/01/2023 8:34 PM Full Code 01/11/2023 10:19 PM 01/18/2023 9:39 PM Full Code 12/09/2022 10:42 PM 12/15/2022 9:30 PM Care Teams V Groove Cutter Relationship Specialty Start Date End Date Bina Obando PCP - External Otolaryngology 11/12/22 MD Joana Referring [address] [place] [phone] Kenya Agarwal MD PCP - General Head and Neck Surgery 11/12/[address] [place] [address] Trent Irving MD Family [facility] 11/26/22 [address] [place] [address] Randall Sheriff [facility] 11/26/22 MD Maciej [address] [place] [address] Vignesh Waddell, Pulmonary Medicine 11/26/22 MD [address] [place] [address] Naa Miller, Cardiology 11/26/[address] [address] Tapan Harper, Gastroenterology 11/26/22 [address] [place] [address] Rafael Rosas, Ophthalmology 11/26/22 [address] [place] [phone] Suzanne Mcgrath MD Consulting Physician Ophthalmology 12/29/[address] [place] [id number]
--- OUTSIDE RECORDS SUMMARY | 2023-05-18 22:12 | XMS REPORT | Continuity of Care Document ---
:1965 Author Organization [facility] t Address [address] [place] [address] Care Team Providers Name Role Phone JARON IRVING Primary Care Physician Unavailable SYSTEM, PROVIDER NOT IN Attending Clinician Unavailable Tapan Harper Attending Clinician Unavailable Zacarias Rodriguez Attending Clinician Unavailable NEREIDA SHERIFF Attending Clinician Unavailable Raymond GRIFFIN, No Otto Attending Clinician Freya Kimball RN Attending Clinician Marily Garcia APRN Attending Clinician Deyanira Wright RN Attending Clinician Unavailable Winter Luu MD Attending Clinician Vaibhav Rosario MD Attending Clinician WINTER LUU Attending Clinician Unavailable Kyung Thomas RN Attending Clinician Unavailable Nereida Sheriff MD Attending Clinician Miguel Gordon MD Attending Clinician Kenya Agarwal MD Attending Clinician Clint MEDINA, Lian Benjamin Attending Clinician Torin GRIFFIN, Rosana Attending Clinician RobbisusanaM Attending Clinician Unavailable Kandy GARBER, Viry Singer Attending Clinician Moses ESCALANTE, Angela Attending Clinician Lan GALE, Lindy Sotelo Attending Clinician [phone] Lemuel ESCALANTE, Lorena Garza Attending Clinician [phone] Doctor Unassigned, Declo Attending Clinician Unavailable LORENA HDEZ Attending Clinician Unavailable Doyle GARBER, Tita Mayorga Attending Clinician Unavailable Tyrell ESCALANTE, Cony Attending Clinician Anthony Lancaster RN Attending Clinician Unavailable Deneen Guevara MD Attending Clinician Rachid GRIFFIN, Felisa Attending Clinician Romana Guy MD Attending Clinician Amanda Proctor MD Attending Clinician Estella GRIFFIN, Thao V. Attending Clinician Derrick Gill MD Attending Clinician Kofi Wang MD Attending Clinician [phone] Phyllis Rangel MD, Ashleigh Attending Clinician [phone] KOFI WANG Attending Clinician Unavailable Dustin Bruce MD Attending Clinician KENYA AGARWAL Attending Clinician Unavailable Will BARCENAS-AGRICULTURE SCIENTIST, Charla Eckert Attending Clinician DERRICK GILL Attending Clinician Unavailable THAO ROMERO V. Attending Clinician Unavailable VAIBHAV ROSARIO Attending Clinician Unavailable Jad aPtel MD Attending Clinician Karissa GRIFFIN, Jaycee Attending Clinician Nghia GRIFFIN, Brock Attending Clinician Kt Deshpande MD, Elian Attending Clinician [phone] Glenda Madrigal APRN Attending Clinician ELIAN ONEAL Attending Clinician Unavailable Jonathan GARBER, Felisa Costa Attending Clinician JAYCEE BISHOP Attending Clinician Unavailable Williams GRIFFIN, Rogerio Attending Clinician [phone] Nereida Ferrer Attending Clinician Unavailable Regulo GRIFFIN, Reva Attending Clinician Nico GRIFFIN, Roberto Carlos Attending Clinician Estella GRIFFIN, Chung Garcia Attending Clinician [phone] [facility] DO, [facility] Attending Clinician BROCK DIOR Attending Clinician Unavailable RADIOLOGY Attending Clinician Unavailable Sherif BARCENAS-AGRICULTURE SCIENTIST, Mukund Cervantes Attending Clinician Unav karishma Ordaz MD, Karen Attending Clinician Geo GARBER, Brittni Benjamin Attending Clinician Unavailable Alcides GRIFFIN, Suzanne Attending Clinician Ankita KEYESS, Otilia Attending Clinician Dony Calhoun MA Attending Clinician Dimas GARBER, Maria Luz Lund Attending Clinician Unavailable Alok MEDINA, Rosmery Costa Attending Clinician Maicol GRIFFIN, Mer Peñaloza Attending Clinician Tila GRIFFIN, Graciela Attending Clinician Jessica GRIFFIN, Travis Attending Clinician RON BAI Attending Clinician Unavailable FAREED DAVIS Attending Clinician Unavailable Dawson OROZCO, Maya Attending Clinician Martínez GRIFFIN, Wilder Attending Clinician Unavailable Jason GARBER, Triston Rollins Attending Clinician Unavailable Emmanuel GRIFFIN, Matthew Choe Attending Clinician [phone] Red Posada APRN Attending Clinician Enrique GRIFFIN, David Alvarado Attending Clinician Antonio GRIFFIN, Alexa Attending Clinician Jeffy RN, Ofe Bourgeois Attending Clinician Olivier GRIFFIN, Berkley Attending Clinician Unavailable Mateusz GARBER, Elana Attending Clinician RED POSADA Attending Clinician Unavailable Chloe Lopez Attending Clinician Kayden GRIFFIN, Lee Mathis Attending Clinician Lab, Ang - Db Attending Clinician Unavailable BLANCHE OSORIO Attending Clinician Unavailable Jo REELING AND TUBING MACHINE OPERATORBlanche Attending Clinician Pob, Adc Lab Main Attending Clinician Unavailable Angelica Mathis MD Attending Clinician Angelica MATHIS Attending Clinician Unavailable GERMAIN CALERO Attending Clinician Unavailable JACQUELIN GONZALEZ Attending Clinician Unavailable Lacy VERNON, Jacquelin Alvarado Attending Clinician Dewayne Wise MD Attending Clinician DEWAYNE WISE Attending Clinician Unavailable Adam Sierra MD Attending Clinician Rishabh GRIFFIN, India Kellogg Attending Clinician [phone] Germain Ortega Attending Clinician Luan Coughlin MD Attending Clinician Mimi Attending Clinician Unavailable Nurse, Adc Pob Immunization Attending Clinician Unavailable Miguel Patel DO Attending Clinician MIGUEL PATEL Attending Clinician Unavailable Nabil INSURANCE TERRITORY MANAGERJaimee OSORIO Attending Clinician Cbc, Medicare Wellness Ang [place] [...] Clinician Jaron Irving H Admitting Clinician Unavailable Aguilamarsha_M Admitting Clinician Unavailable THAO ROMERO V. Admitting Clinician Unavailable JAYCEE BISHOP Admitting Clinician Unavailable CHUNG ROMERO-BRIDGET Admitting Clinician Unavailable GRACIELA TELLEZ Admitting Clinician Unavailable JACQUELIN GONZALEZ Admitting Clinician Unavailable DEWAYNE WISE Admitting Clinician Unavailable Mimi Admitting Clinician Unavailable ZACARIAS RODRIGUEZ Admitting Clinician Unavailable Alexa Guerrero Admitting Clinician Payers Payer Name Policy Type Policy Number Effective Date Expiration Date Annette gonzalez MEDICARE PART A [id number] 2010 \\T\\ B 00:00:00 MEDICAID [facility] [id number] 2012 00:00:00 [place]: [id number] 2010 [employer] 00:00:00 [place] [id number] [place] Problems Condition Condition Condition Status Onset Resolution Last Treating Co mments Source Name Details Category Date Date Treatment Clinician Date 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 Bilateral Bilateral Disease Active Uni vers acute acute 4-10 ity of thrombosis [place] of basilic of basilic 00 veins [address] [facility] Thrombosis Thrombosis Disease Active U nivers of left of left 4-10 ity of cephalic cephalic 00:00: [place] vein vein 00 [facility] Febrile Febrile Disease Active Univers neutropeni neutropeni 4-08 it y of a a 00:00: [place] 00 MD Rob [facility] Shortness Shortness Disease Active Uni vers of breath of breath 4-08 ity of 00:00: [place] 00 MD Rob [facility] Central Central Disease Active Univers line line 4-08 ity of associated associated [place] bloodstrea bloodstrea 00 MD [place] Rob infection infection [facility] Disorder Disorder Disease Active Unive rs of fluid of fluid 4-08 ity of AND/OR AND/OR 00:00: [place] electrolyt electrolyt 00 [facility] 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 [place] openia openia 00 MD Rob [facility] Intractabl Intractabl Disease Active U nivers e nausea e nausea 4-07 ity of and and 00:00: [place] vomiting vomiting 00 MD Rob [facility] Hematochez Hematochez Disease Active U nivers ia ia 3-29 ity of 00:00: [place] 00 MD Rob [facility] Abdominal Abdominal Disease Active Uni vers pain, pain, 3-28 ity of epigastric [place]igastric [place] 00 [place] Rob [facility] 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 00:00: [place] eulalio eulalio 00 malnutriti malnutriti [facility] Insulin Insulin Disease Active Univers resistance resistance 3-20 it y of 00:00: [place] 00 MD Rob [facility] History of History of Disease Active U nivers fall fall 3-14 ity of 00:00: [place] 00 MD Liane olivier [facility] 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 00:00: [place] with with 00 hyperglyce hyperglyce An derso moncho moncho [facility] Hemoglobin [facility]oglobin [facility] A1c A1c 3-14 ity of greater greater 00:00: [place] than 10 than 10 00 percent percent Andchrissyo indicating indicating n poor poor Cancer diabetic diabetic Center control control Malnutriti Malnutriti Disease Active U nivers on of on of 3-14 ity of moderate moderate 00:00: [place] degree degree 00 MD Rob [facility] Mucositis Mucositis Disease Active Uni vers due to due to 3-13 ity of antineopla antineopla [place] stic stic 00 [facility] Swallowing Swallowing Disease Active U nivchrissy painful painful 3-13 ity of 00:00: [place] 00 MD Liane olivier [facility] parts counterman [facility] Disease Active Uni vers current current 2-09 ity of use of use of 00:00: [place] systemic systemic 00 steroid steroid Liane [facility] Current Current Disease Active Univers use of use of 2-09 ity of insulin insulin 00:00: [place] 00 MD Liane olivier [facility] Adverse Adverse Disease Active Univers effect of effect of 2-09 ity of glucocorti glucocorti 00:00: Dereck astudillo coids and coids and 00 synthetic synthetic Bandar rso analogues analogues [facility] Headache Headache Disease Active Unive rs 2-08 ity of 00:00: [place] 00 MD Liane olivier [facility] 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 00:00: Paul pierce of of MD victor manuel rush An derso x, NOS x, NOS n [facility] SOB SOB Disease Active 2021-11 Univers (shortness (shortness 0-25 it y of of breath) of breath) [place] [facility] [place] New daily New daily Disease Active 2021-11 Uni vers persistent persistent 0-25 it y of headache headache 00:00: [place] [facility] Dizziness Dizziness Disease Active 2021-11 Uni vers 0-25 ity of 00:00: [place] [facility] Wheezing Wheezing Disease Active 2021-11 Unive rs 0-25 ity of 00:00: [place] [facility] Diabetes Diabetes Problem Active 2020-11 [...] 4-16 it y of on on 00:00: [place] 00 MD [facility]iane [facility] Gastroesop Gastroesop Disease Active U charis hageal hageal 9 ity of reflux reflux 00:00: [place] disease disease 00 MD Liane [facility] Other Other Disease Active Univers hyperlipid hyperlipid 9 it y of emia emia 00:00: [place] 00 MD Liane [facility] Type 2 Type 2 Disease Active Univers diabetes diabetes 9 ity of mellitus mellitus 00:00: [place] without without 00 Medical complicati complicati Br anch on, with on, with long-term long-term current current use of use of insulin insulin Bariatric Bariatric Disease Active Uni vers surgery surgery 07-28 ity of status status 00:00: [place] 00 Medical Branch Hyperlipid Hyperlipid Disease Active 2018- U gentryers emia, emia, 9 ity of unspecifie unspecifie [...] 13:34:00 l Active 00:00: [place] 03/30/2018 00 [facility] [place] [id number] Diagnosis Active 2014-112015-11-08 Memoria .9 [id number] -18 12:57:00 l .9 Active 00:00: [place] 10/18/2015 00 [place] ACS (acute ACS (acute Disease Active U nivers coronary coronary 3-16 ity of syndrome) syndrome) [place] 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 [place] malnutriti malnutriti on on [facility] Cough Cough Problem Resolve 2019-06-28 Mem oria (finding) (finding) d 15:29:48 l Resolved [place] Problem 06/28/2019 2 weeks ago,, cough, cold , flu; better now [facility], [place] Infection Problem Resolve 2019-06-28 M emoria of ear Infection d 15:29:48 l (disorder) of ear Ulises n (disorder) Resolved Problem 06/28/2019 [facility] [place] Irregular Irregular Problem Resolve 2019-06-28 Memoria heart beat heart beat d 15:29:48 l (finding) (finding) Herm flakita Resolved Problem 06/28/2019 [facility] [place] Muscle Muscle Problem Resolve 2019-06-28 Mem oria pain pain d 15:29:48 l (finding) (finding) Herm flakita Resolved Problem 06/28/2019 [facility], [place] Anxiety Anxiety Problem Active 2019-06-28 Me moria (finding) (finding) 15:29:48 l Active [place] Problem 06/28/2019 [facility], [place] Backache Backache Problem Active 2019-06-28 Memoria (finding) (finding) 15:29:48 l Active [place] Problem 06/28/2019 [facility], [place] Gout Gout Problem Active 2019-06-28 Memor ia (disorder) (disorder) 15:29:48 l Active [place] Problem 06/28/2019 [facility], [place] Hypertensi Hypertens Problem Active 2019-06-28 Memoria ve rosales 15:29:48 l disorder, disorder, Herm flakita systemic systemic arterial arterial (disorder) (disorder) Active Problem 06/28/2019 [facility], [place] Insomnia Insomnia Problem Active 2019-06-28 Memoria (disorder) (disorder) 15:29:48 l Active [place] Problem 06/28/2019 [facility], [place] 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 15:29:48 l (disorder) (disorder) He rmann Active Problem 06/28/2019 [facility], [place] Lumbar Lumbar Problem Active 2019-06-28 [place] radha radiculopa radiculopa 15:29:48 l thy thy [place] (disorder) (disorder) Active Problem 06/28/2019 [facility] Neuro Osteoarthr Osteoarth Problem Active 2019-06-28 Memoria itis ritis 15:29:48 l (disorder) (disorder) He rmann Active Problem 06/28/2019 [facility] Peripheral Periphera Problem Active 2019-06-28 Memoria nerve l nerve 15:29:48 l disease disease [place] (disorder) (disorder) Active Problem 06/28/2019 [facility] Sleep Sleep Problem Active 2019-06-28 Memor ia apnea apnea 15:29:48 l (finding) (finding) Herm flakita Active Problem 06/28/2019 [facility] [place] Cholestero Problem Active 2015-11-11 M emoria l Cholestero 01:38:42 l (substance l Ulises n ) (substance ) Active Problem 11/11/2015 [place] GASTRO-ESO GASTRO-ES Diagnosis Active 2015-11-08 Memoria PHAGEAL OPHAGEAL 12:57:00 l REFLUX REFLUX [place] DISEASE DISEASE WITHOUT WITHOUT Active [place] Allergies, Adverse Reactions, Alerts Allergy Allergy Status Severity Reaction(s) Onset Inactive Treating Comm ents Source Name Type Date Date Clinician Pregabal Propensi Active Other (See 2023-0 depressio Univers in ty to Comments) 3-14 n ity of adverse 00:00: [place] reaction 00 MD annette [facility] PREGABAL DRUG Active Other 3-0 MD IN [...] IN INGREDI 3-14 Anderso 00:00: n 00 Metoclop Drug Active Other (See 2021- Univ ers ramide Allergy Comments) 2-16 ity of Hcl 00:00: [place] 00 MD [facility] METOCLOP DRUG Active Other 2021-11 MD RAMIDE [...] Active Low N/V 2021-11 Univers JUICE INGREDI 1-21 ity of 00:00: [place] 00 Medical Branch Cameron Drug Active Nausea 2021-11 Univers Juice Allergy and/or 1-21 ity of Vomiting 00:00: [place] 00 Medical Branch Kiwi Drug Active Other (See Univer s (Actinid Allergy Comments) 3-27 ity of ia 00:00: [place] Chinensi 00 MD pierce) Liane olivier [facility] Kiwi Propensi Active Other - See Uni vers ty to comments 3-27 ity of adverse 00:00: [place] reaction 00 Medical s Branch KIWI DRUG Active Unknown-Cmnt Univ ers INGREDI 3-27 ity of 00:00: [place] 00 Medical Branch KIWI Drug Active High Anaphylaxis MD (ACTINID Class 3-27 Anderso [place] 00:00: n CHINENSI 00 S) Cameron Drug Active GI Univers Juice Allergy Intolerance 6-18 ity of 00:00: [place] 00 MD [facility] ORANGE DRUG Active Low NandV 2020-0 MD ZULEIKA VALADEZI 6-18 Andersclint 00:00: n 00 doxycycl DA Active U 2019-0 [facility] [place] [facility]: d [facility] metoclop DA Active U 2020-0 [facility] ramide [facility]- [place] 00:[facility]: d 00 [facility] doxycycl DA Active U VOMITING [facility] [place] 00:[facility]: d 00 [facility] metoclop DA Active U UNKNOWN 2019-0 [facility] ramide 2- [place] 00:00: d 00 [facility] Cameron Drug Active Nausea And And Kiwi [facility] ORANGE Allergy Active Med N\\T\\V [facility] Medical [address] Cameron Propensi Active Nausea Univers ty to and/or 05-11 ity of adverse Vomiting 00:00: [place] reaction 00 Medical s Branch ORANGE DRUG Active Med N/V Univers INGREDI 05-11 ity of 00:00: [place] 00 Medical Branch Doxycycl Drug Active Nausea And [facility] Center Metoclop Drug Active Other (See Told by [facility] ramide Allergy Comments) -16 anesthesi Nima es 00:00: ologist Medical 00 that she Center should add to her allergies following a procedure DOXYCYCL Allergy Active High N\\T\\V [facility] 3[facility]16 [facility] Medical [facility] Center METOCLOP Allergy Active High Other [facility] RAMIDE 3-16 [facility] 00:[facility]: Medical 00 Center Doxycycl Propensi Active Nausea Univer s ine ty to and/or -16 ity of adverse Vomiting 00:00: [place] reaction 00 Medical s Branch Metoclop Propensi Active Unknown - Told by Oscar ba ty to See comments -16 anesthesi i ty of Hcl adverse 00:00: ologist [place] reaction 00 that she Medica l s should Branch add to her allergies following a procedure DOXYCYCL DRUG Active High N/V Univers INE INGREDI 3-16 ity of 00:00: [place] 00 Medical [place] METOCLOP DRUG Active Unknown-Cmnt 2015-0 Un ally RAMIDE INGREDI 3-16 ity of HCL 00:00: [place] [address] [facility] METOCLOP DRUG Active High N/V 2015-0 Univers RAMIDE INGREDI 3-16 ity of 00:00: [place] [address] [facility] METOCLOP DRUG Active High Nausea 2015-0 [...] RAMIDE INGREDI 3-16 Anderso 00:00: n 00 doxycycl doxycycl Active Memori a ine jesus Seay Reglan Reglan Active Memoria l [place] NO KNOWN Allergy Active [facility] Family History Family Member Diagnosis Comments Start Date Stop Date Source Cousin [facility] Natural father Diabetes [facility] Natural father Glaucoma [facility] Natural father Leukemia [facility] Maternal uncle Cancer [facility] Maternal uncle Colon cancer [facility]i [facility] Natural mother -Unknown cancer Unive rsity of [facility] Center Natural mother Diabetes [facility] Natural mother Glaucoma [facility] n[facility] [address] Paternal grandfather Diabetes Univ ersity of [facility] Paternal grandfather Leukemia Univ ersity of [facility] Ca caer [place] [address] Paternal grandmother Diabetes Univ ersity of [facility] Natural sister Ovarian cancer Univer sity of [facility] Social History Social Habit Start Date Stop Date Quantity Comments Source History of tobacco Cigarette Smoker University of use [place] [facility] History SDOH University o f Transport Non-Med [facility] Branch Exposure to 2023-04-12 2023-04-22 Not sure University of SARS-CoV-2 (event) 00:00:00 12:16:00 [facility] Tobacco use and 2022-11-26 2022-11-26 Smokeless Universit y of exposure 00:00:00 00:00:00 tobacco non-user [facility] Cigarettes smoked 2022-11-26 2022-11-26 Univers ity of current (pack per 00:00:00 00:00:00 [facility] ) - Reported Cancer Ce nter Cigarette 2022-11-26 2022-11-26 University of pack-years 00:00:00 00:00:00 [place] MD Ruelas [employer] [facility] [employer] [facility] Alcohol intake 2022-01-09 2022-01-09 Ex-drinker [facility] 00:[facility]00 00:00:00 (finding) Medical Center Tobacco Comment 2022-01-08 2022-01-08 only as teenager [facility] 00:[facility] Medical Center History SDOH Social 2019-08-25 2019-08-25 3 Unive rsity of Connections Phone 00:00:00 00:00:00 [facility] edical Branch History SDOH Social 2019-08-25 2019-08-25 1 Unive rsity of Connections Get 00:00:00 00:00:00 [place] Med ical Together Branch History SDOH Social 2019-08-25 2019-08-25 1 Unive rsity of Connections Rastafarian 00:00:00 00:00:00 [place] [facility] History SDOH [...] 00:00:00 [place] M edical MPS Branch History SDRI Stress 2019-08-25 2019-08-25 3 Unive rsity of [...] University o f Transport Med 00:00:00 00:00:00 [place] Medic al Branch Social History 2015-11-07 2015-11-07 [facility] selinaann 16:48:16 16:48:16 Sex [birth year] At [birth year] CARMEN Hilario 00:00:00 00:00:00 Medical Center Smoking Status Start Date Stop Date Source Never Smoker [place] [facility] trisha Ex-smoker 2022-11-26 00:00:00 2022-11-26 [facility] Medications Ordered Filled Start Stop Current Ordering Indication Dosage Frequency Signature Comments Components Source Medication Medication Date Date Medication? Clinician (SIG) Name Name hydrocortis Yes Abnormal Take 2 Univers one 7-11 cortisol tablets ity of (CORTEF) 10 00:00: (20 mg) by [place] mg tablet 00 mouth MD daily with Anderso breakfast n AND 1 Cancer tablet (10 Center mg) daily with dinner. hydrocortis Yes Abnormal Take 2 Univers one 7-11 cortisol tablets ity of (CORTEF) 10 00:00: (20 mg) by [place] mg tablet 00 mouth MD daily with Anderso breakfast n AND 1 Cancer tablet (10 Center mg) daily with dinner. hydrocortis Yes Abnormal Take 2 Univers one 7-11 cortisol tablets ity of (CORTEF) 10 00:00: (20 mg) by [place] mg tablet 00 mouth MD daily with Anderso breakfast n AND 1 Cancer tablet (10 Center mg) daily with dinner. HYDROcodone Yes [id number] 1{tbl} Take 1 Un ally -acetaminop 7-05 tablet by ity of hen 10-325 00:00: mouth [place] mg tablet 00 every 6 Medical (six) Branch hours as needed for Pain (scale 4-6). Indication s: chronic pain fluticasone Yes [id number] 2{spray Use 2 Univers propionate 7-05 } Sprays in ity of 50 00:00: each [place] mcg/actuati 00 nostril in Me dical on nasal the Branch spray morning. lisinopril Yes 40mg Take 1 Unive rs (PRINIVIL,Z 6-22 tablet (40 it y of ESTRIL) 40 15:48: mg) by [place] mg tablet 03 mouth MD every Anderso morning. Cancer Center allopurinol Yes prevention 300mg Take 1 Univers (ZYLOPRIM) 6-22 of acute tablet ity of 300 mg 15:48: gout attack (300 mg) [place] tablet 03 by mouth MD twice Anderso daily. Cancer Center colchicine Yes prevention .6mg Take 1 Univers (COLCRYS) 6-22 of acute tablet ity of 0.6 mg 15:48: gout attack (0.6 mg) [place] tablet 03 by mouth MD daily. [facility] dicyclomine Yes 10mg Take 1 Univ ers (BENTYL) 10 6-22 capsule ity o f mg capsule 15:48: (10 mg) by [place] 03 mouth 3 MD (three) Anderso times a n day. Cancer Center lisinopril Yes 40mg Take 1 Unive rs (PRINIVIL,Z 6-22 tablet (40 it y of ESTRIL) 40 15:48: mg) by [place] mg tablet 03 mouth MD every [place] morning. [facility] allopurinol Yes prevention 300mg Take 1 [facility] (ZYLOPRIM) 6-22 of acute tablet ity of 300 mg 15:48: gout attack (300 mg) [place] tablet 03 by mouth MD twice Anderso daily. Cancer Center colchicine Yes prevention .6mg Take 1 [facility] (COLCRYS) 6-22 of acute tablet ity of 0.6 mg 15:48: gout attack (0.6 mg) [place] tablet 03 by mouth MD daily. [facility] dicyclomine Yes 10mg Take 1 Univ ers (BENTYL) 10 6-22 capsule ity o f mg capsule 15:48: (10 mg) by [place] 03 mouth 3 MD (three) Anderso times a n day. Cancer Center lisinopril Yes 40mg Take 1 Unive rs (PRINIVIL,Z 6-22 tablet (40 it y of ESTRIL) 40 15:48: mg) by [place] mg tablet 03 mouth MD every [place] morning. Cancer [place] allopurinol Yes prevention 300mg Take 1 [facility] (ZYLOPRIM) 6-22 of acute tablet ity of 300 mg 15:48: gout attack (300 mg) [place] tablet 03 by mouth MD twice [place] daily. Cancer Center colchicine Yes prevention .6mg Take 1 [facility] (COLCRYS) 6-22 of acute tablet ity of 0.6 mg 15:48: gout attack (0.6 mg) [place] tablet 03 by mouth MD daily. [facility] dicyclomine Yes 10mg Take 1 Univ ers (BENTYL) 10 6-22 capsule ity o f mg capsule 15:48: (10 mg) by [place] 03 mouth 3 MD (three) [place] times a n day. Cancer Center lisinopril Yes 40mg Take 1 Unive rs (PRINIVIL,Z 6-13 tablet (40 it y of ESTRIL) 40 10:16: mg) by [place] mg tablet 54 mouth MD every Anderso morning. Cancer [place] allopurinol Yes prevention 300mg Take 1 [facility] (ZYLOPRIM) 6-13 of acute tablet ity of 300 mg 10:16: gout attack (300 mg) [place] tablet 54 by mouth MD twice Anderso daily. Cancer [place] colchicine Yes prevention .6mg Take 1 [facility] (COLCRYS) 6-13 of acute tablet ity of 0.6 mg 10:16: gout attack (0.6 mg) [place] tablet 54 by mouth MD daily. [facility] dicyclomine Yes 10mg Take 1 Univ ers (BENTYL) 10 6-13 capsule ity o f mg capsule 10:16: (10 mg) by [place] 54 mouth 3 MD (three) [place] times a n day. Cancer Center gabapentin Yes Chronic TAKE 1 Un ally (NEURONTIN) 6-09 pain TABLET(800 it y of 800 mg 00:00: MG) BY [place] tablet 00 MOUTH MD EVERY 8 Anderso HOURS [facility] Center gabapentin Yes Chronic TAKE 1 Un ally (NEURONTIN) 6-09 pain TABLET(800 it y of 800 mg 00:00: MG) BY [place] tablet 00 MOUTH MD EVERY 8 Anderso HOURS [facility] gabapentin Yes Chronic TAKE 1 Un ally (NEURONTIN) 6-09 pain TABLET(800 it y of 800 mg 00:00: MG) BY [place] tablet 00 MOUTH MD EVERY 8 Anderso HOURS [facility] gabapentin Yes Chronic TAKE 1 Un ally (NEURONTIN) 6-09 pain TABLET(800 it y of 800 mg 00:00: MG) BY [place] tablet 00 MOUTH MD EVERY 8 Anderso HOURS [facility] fluticasone Yes [id number] 2{spray Use 2 [facility] propionate 6-08 } Sprays in ity of 50 00:00: each [place] mcg/actuati 00 nostril in Me dical on nasal [place] spray morning. fluticasone Yes [id number] 2{spray Use 2 [facility] propionate 6-08 } Sprays in ity of 50 00:00: each [place] mcg/actuati 00 nostril in Me dical on nasal [place] spray morning. fluticasone 2022- No [id number] 2{spray Use 2 [facility] propionate 6-08 07-05 } Sprays in ity of 50 00:00: [...] days. Indication s: chronic pain apixaban Yes [facility] 5mg Take 1 Un ally (Eliquis) 5 5-31 use of tablet (5 i ty of mg tablet 00:00: anticoagula mg) by [place] 00 nt mouth MD every 12 Anderso (twelve) n hours. [facility] Center apixaban Yes [facility] 5mg Take 1 Un ally (Eliquis) 5 5-31 use of tablet (5 i ty of mg tablet 00:00: anticoagula mg) by [place] 00 nt mouth every 12 [place] (twelve) n hours. Cancer Center apixaban Yes [facility] 5mg Take 1 Un ally (Eliquis) 5 5-31 use of tablet (5 i ty of mg tablet 00:00: anticoagula mg) by [place] 00 nt mouth every 12 [place]o (twelve) n hours. 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 [facility] U nivers e-dextromet 5-30 BY MOUTH ity of horphan 00:00: EVERY 6 [place] (PROMETHAZI 00 HOURS MD WEINSTEIN) NEEDED FOR [place]o 6.25-15 COUGH n mg/5 mL Cancer syrup Center promethazin Yes TAKE 5 ML U nivers e-dextromet 5-30 BY MOUTH ity of horphan 00:00: EVERY 6 [place] (PROMETHAZI 00 HOURS MD WEINSTEIN) NEEDED FOR [place] 6.25-15 COUGH n mg/5 mL Cancer syrup Center promethazin Yes TAKE 5 ML U nivers e-dextromet 5-30 BY MOUTH ity of horphan 00:00: EVERY 6 [place] (PROMETHAZI 00 HOURS MD WEINSTEIN) NEEDED FOR [place] 6.25-15 COUGH n mg/5 mL Cancer syrup Center promethazin Yes TAKE 5 ML U nivers e-dextromet 5-30 BY MOUTH ity of horphan 00:00: EVERY 6 [place] (PROMETHAZI 00 HOURS MD WEINSTEIN) NEEDED FOR [place] 6.25-15 COUGH n mg/5 mL Cancer syrup [place] spironolact Yes TAKE 1 Univ ers one 5-27 TABLET BY ity of (ALDACTONE) 00:00: MOUTH [place] 25 mg 00 EVERY DAY tablet Anderso n Cancer [place] spironolact Yes TAKE 1 Univ ers one 5-27 TABLET BY ity of (ALDACTONE) 00:00: MOUTH [place] 25 mg 00 EVERY DAY tablet [facility] spironolact Yes TAKE 1 Univ ers one 5-27 TABLET BY ity of (ALDACTONE) 00:00: MOUTH [place] 25 mg 00 EVERY DAY tablet [facility] spironolact Yes TAKE 1 Univ ers one 5-27 TABLET BY ity of (ALDACTONE) 00:00: MOUTH [place] 25 mg 00 EVERY DAY tablet [facility] benzonatate Yes Univer s (TESSALON) 5-26 ity of 100 mg 00:00: [place] capsule [address] [facility] predniSONE Yes TWICE Univer s (DELTASONE) 5-26 DAILY ity of 10 mg 00:00: [place] tablet [address] [facility] benzonatate Yes THREE Unive rs (TESSALON) 5-26 TIMES A ity of 100 mg 00:00: DAY [place] capsule [address] [facility] predniSONE Yes TWICE Univer s (DELTASONE) 5-26 DAILY ity of 10 mg 00:00: [place] tablet [address] [facility] benzonatate Yes Univer s (TESSALON) 5-26 ity of 100 mg 00:00: [place] capsule [address] [facility] predniSONE Yes TWICE Univer s (DELTASONE) 5-26 DAILY ity of 10 mg 00:00: [place] tablet [address] [facility] benzonatate Yes Univer s (TESSALON) 5-26 ity of 100 mg 00:00: [place] [facility] Yes TWICE Univer s (DELTASONE) 5-26 DAILY ity of 10 mg 00:00: [place] tablet 00 MD Rob [facility] oxyCODONE-a Yes Univer s cetaminophe 5-20 ity of n 00:00: [place] (PERCOCET) 00 2.5-325 mg [facility] oxyCODONE-a Yes Univer s cetaminophe 5-20 ity of n 00:00: [place] (PERCOCET) 00 MD 2.5-325 mg Anderso per tablet [facility] oxyCODONE-a Yes Univer s cetaminophe 5-20 ity of n 00:00: [place] (PERCOCET) 00 MD 2.5-325 mg [place] per tablet [facility] oxyCODONE-a Yes Univer s cetaminophe 5-20 ity of n 00:00: [place] (PERCOCET) 00 MD 2.5-325 mg Anderso per tablet [facility] cefPODoxime Yes 200mg Take 1 Uni vers (VANTIN) 5-14 tablet ity of 200 mg 00:00: (200 mg) [place] tablet 00 by mouth MD twice Anderso daily. [facility] cefPODoxime Yes 200mg Take 1 Uni vers (VANTIN) 5-14 tablet ity of 200 mg 00:00: (200 mg) [place] tablet 00 by mouth twice Anderso daily. [facility] cefPODoxime Yes 200mg Take 1 Uni vers (VANTIN) 5-14 tablet ity of 200 mg 00:00: (200 mg) [place] tablet 00 by mouth MD twice Anderso daily. [facility] cefPODoxime Yes 200mg Take 1 Uni vers (VANTIN) 5-14 tablet ity of 200 mg 00:00: (200 mg) [place] tablet 00 by mouth twice Anderso daily. [facility] cefPODoxime Yes 200mg Take 1 Uni vers (VANTIN) 5-14 tablet ity of 200 mg 00:00: (200 mg) [place] tablet 00 by mouth twice Anderso daily. [facility] cefPODoxime Yes 200mg Take 1 Uni vers (VANTIN) 5-14 tablet ity of 200 mg 00:00: (200 mg) [place] tablet 00 by mouth twice Anderso daily. [facility] metFORMIN Yes TAKE 1 Univer s (GLUCOPHAGE 5-10 TABLET BY ity of ) 1000 mg 00:00: [place]TH [place] 00 THE MD MORNING Anderso AND IN THE n EVENING Cancer WITH [facility] Center metFORMIN 2022- No TAKE 1 Unive rs (GLUCOPHAGE 5-10 06-24 TABLET BY it y of ) 1000 mg 00:00: 00:00 MOUTH IN [place] tablet 00 :00 THE MD MORNING [place] AND IN THE n EVENING [facility] Center metFORMIN 2022- No TAKE 1 Unive rs (GLUCOPHAGE 5-10 06-24 TABLET BY it y of ) 1000 mg 00:00: 00:00 MOUTH IN [place] tablet 00 :00 THE MD MORNING Andchriss[place] AND IN THE n EVENING Cancer WITH [facility] Center metFORMIN 2022- No TAKE 1 Unive rs (GLUCOPHAGE 5-10 06-24 TABLET BY it y of ) 1000 mg 00:00: 00:00 MOUTH IN [place] tablet 00 :00 THE MD MORNING [place] AND IN THE n EVENING Cancer WITH [...] [place] tablet 53 by mouth MD daily. [facility] dicyclomine Yes 10mg Take 1 [...] [place] tablet 53 by mouth MD daily. [facility] dicyclomine Yes 10mg Take 1 [...] 53 mouth MD every Anderso morning. Cancer [place] allopurinol Yes prevention 300mg Take 1 [facility] (ZYLOPRIM) 5-03 of acute tablet ity of 300 mg 11:42: gout attack (300 mg) [place] tablet 53 by mouth MD twice Anderso daily. n Cancer [place] colchicine Yes prevention .6mg Take 1 [facility] (COLCRYS) 03-03 of acute tablet ity of 0.6 mg 11:42: gout attack (0.6 mg) [place] tablet 53 by mouth MD daily. Anderso [facility] dicyclomine Yes 10mg Take 1 Univ ers (BENTYL) 10 03-03 capsule ity o f mg capsule 11:42: (10 mg) by Christelle love 53 mouth 3 MD (three) Anderso times a n day. [facility] Center gabapentin Yes Chronic TAKE 1 Un ally (NEURONTIN) 03-02 pain TABLET(800 it y of 800 mg 00:00: MG) BY [place] tablet 00 MOUTH MD EVERY 8 Anderso HOURS [facility] gabapentin Yes Chronic TAKE 1 Un ally (NEURONTIN) -02 pain TABLET(800 it y of 800 mg 00:00: MG) BY [place] tablet 00 MOUTH MD EVERY 8 Anderso HOURS [facility] gabapentin Yes Chronic TAKE 1 Un ally (NEURONTIN) -02 pain TABLET(800 it y of 800 mg 00:00: MG) BY [place] tablet 00 MOUTH MD EVERY 8 Anderso HOURS [facility] gabapentin 0 2022- No Chronic TAKE 1 U nivers (NEURONTIN) 03-02-09 pain TABLET(800 i ty of 800 mg 00:00: 00:00 MG) BY [place] tablet 00 :00 MOUTH MD EVERY 8 Anderso HOURS [facility] gabapentin 2022-0 2022- No Chronic TAKE 1 U nivers (NEURONTIN) 03-02-09 pain TABLET(800 i ty of 800 mg 00:00: 00:00 MG) BY [place] tablet 00 :00 MOUTH MD EVERY 8 Anderso HOURS [facility] gabapentin 0 2022- No Chronic TAKE 1 U nivers (NEURONTIN) 03-02-09 pain TABLET(800 i ty of 800 mg 00:00: 00:00 MG) BY [place] tablet 00 :00 MOUTH MD EVERY 8 [place] HOURS n Cancer Center gabapentin 2022- No Chronic TAKE 1 U nivers (NEURONTIN) 03-02 pain TABLET(800 i ty of 800 mg 00:00: 00:00 MG) BY [place] tablet 00 :00 MOUTH MD EVERY 8 [place]o HOURS n Cancer Center pseudoephed Yes Chronic 30mg Take 1 U nivers rine 4-28 pain tablet (30 ity of (Sudafed) 00:00: mg) by [place] 30 mg 00 mouth MD tablet every 8 Anderso (eight) n hours as Cancer needed for Center congestion . pseudoephed Yes Chronic 30mg Take 1 U nivers rine 4-28 pain tablet (30 ity of (Sudafed) 00:00: mg) by [place] 30 mg 00 mouth MD tablet every 8 Anderso (eight) n hours as Cancer needed for Center congestion . pseudoephed Yes Chronic 30mg Take 1 U nivers rine 4-28 pain tablet (30 ity of (Sudafed) 00:00: mg) by [place] 30 mg 00 mouth MD tablet every 8 Anderso (eight) n hours as Cancer needed for Center congestion . pseudoephed Yes Chronic 30mg Take 1 U nivers rine 4-28 pain tablet (30 ity of (Sudafed) 00:00: mg) by [place] 30 mg 00 mouth MD tablet every 8 Anders[place] (eight) n hours as Cancer needed for Center congestion . pseudoephed Yes Chronic 30mg Take 1 U nivers rine 4-28 pain tablet (30 ity of (Sudafed) 00:00: mg) by [place] 30 mg 00 mouth MD tablet every 8 Anderso (eight) n hours as Cancer needed for Center congestion . pseudoephed Yes Chronic 30mg Take 1 U nivers rine 4-28 pain tablet (30 ity of (Sudafed) 00:00: mg) by [place] 30 mg 00 mouth MD tablet every [...] 24 00 TWICE MD hr tablet DAILY [facility] METOPROLOL Yes TAKE 1 Unive rs TARTRATE [...] 24 00 TWICE MD hr tablet DAILY [facility] metoprolol 0 Yes TAKE 1 Unive rs succinate 4-26 TABLET BY ity o f (TOPROL XL) 00:00: MOUTH [place] 100 mg 24 00 TWICE MD hr tablet DAILY [facility] metoprolol 0 Yes TAKE 1 Unive rs succinate 4-26 TABLET BY ity o f (TOPROL XL) 00:00: MOUTH [place] 100 mg 24 00 TWICE MD hr tablet DAILY [facility] hydrALAZINE 0 2022- No hypertensio 100mg Take 1 [facility] (APRESOLINE 4-18 04-18 n tablet ity o f ) 100 mg 16:41: 00:00 (100 mg) [place] tablet [place] :00 by mouth 3 MD (three) [place] times a n day. Cancer Center hydroCHLORO 0 2022- No 12.5mg Take 1 U nivers [...] MD capsule every [place] morning. n Cancer [place] cloNIDine 2022- No .2mg Take 1 Unive [...] times a n day as Cancer needed. [place] hydrALAZINE 2022- No hypertensio 100mg Take 1 [...] MD capsule every [place] morning. n Cancer [place] cloNIDine 2022- No .2mg Take 1 Unive rs HCl 4-18 04-18 tablet ity of (CATAPRES) 16:41: 00:00 (0.2 mg) [place] 0.2 mg 23 :00 by mouth 3 MD tablet (three) Anderso times a n day as Cancer needed. [place] hydrALAZINE 2022- No hypertensio 100mg Take 1 [...] mouth MD capsule every Anders[place] morning. n [facility] cloNIDine 2022- No .2mg Take 1 Unive rs HCl 4-18 04-18 tablet ity of (CATAPRES) 16:41: 00:00 (0.2 mg) [place] 0.2 mg 23 :00 by mouth 3 MD tablet (three) [place] times a n day as Cancer needed. [place] hydrALAZINE 2022- No hypertensio 100mg Take 1 [facility] (APRESOLINE 4-18 04-18 n tablet ity o f ) 100 mg 16:41: 00:00 (100 mg) [place] tablet 23 :00 by mouth 3 MD (three) [place] times a n day. Cancer [place] hydroCHLORO 2022- No 12.5mg Take 1 U nivers thiazide 4-18 04-18 capsule ity of (MICROZIDE) 16:41: 00:00 (12.5 mg) [place] 12.5 mg 23 :00 by mouth MD capsule every [place] morning. n [facility] cloNIDine 2022- No .2mg Take 1 Unive rs HCl 4-18 04-18 tablet ity of (CATAPRES) 16:41: 00:00 (0.2 mg) [place] 0.2 mg 23 :00 by mouth 3 MD tablet (three) [place] times a n day as Cancer needed. [place] insulin 2023-0 Yes Type 2 Inject Univer s regular [...] 2022- No Deep venous 750mg Take 1 [facility] 02-16 thrombosis tablet ity of (LEVAQUIN) 00:00: 04:59 <Unspecifie (750 mg) [place] 750 mg 00 :00 d side> by mouth MD tablet daily for Anders[place] 3 days. [facility] levoFLOXaci 2022- No Deep venous 750mg Take 1 [facility] 02-16 thrombosis tablet ity of (LEVAQUIN) 00:00: 04:59 <Unspecifie (750 mg) [place] 750 mg 00 :00 d side> by mouth MD tablet daily for [place] 3 days. [facility] levoFLOXaci 2022- No Deep venous 750mg Take 1 [place] [id number] thrombosis tablet ity of (LEVAQUIN) 00:00: 04:59 <Unspecifie (750 mg) [place] 750 mg 00 :00 d side> by mouth MD tablet daily for Anders[place] 3 days. [facility] levoFLOXaci 2022- No Deep venous 750mg Take 1 [place] [id number] thrombosis tablet ity of (LEVAQUIN) 00:00: 04:59 <Unspecifie (750 mg) [place] 750 mg 00 :00 d side> by mouth MD tablet daily for Anderso 3 days. [facility] levoFLOXaci 2022- No Deep venous 750mg Take 1 Univers n 02-16 thrombosis tablet ity of (LEVAQUIN) 00:00: 04:59 <Unspecifie (750 mg) [place] 750 mg 00 :00 d side> by mouth MD tablet daily for Anderso 3 days. n [facility] levoFLOXaci 2022- No Deep venous 750mg Take 1 Univers n 02-16 thrombosis tablet ity of (LEVAQUIN) 00:00: 04:59 <Unspecifie (750 mg) [place] 750 mg 00 :00 d side> by mouth MD tablet daily for Anderso 3 days. n [facility] levoFLOXaci 2022- No Deep venous 750mg Take 1 Univers n 02-16 thrombosis tablet ity of (LEVAQUIN) 00:00: 04:59 <Unspecifie (750 mg) [place] 750 mg 00 :00 d side> by mouth MD tablet daily for Anderso 3 days. n [facility] enoxaparin Yes Deep venous 120mg Inject 0.8 Univers (LOVENOX) 4-14 thrombosis mL (120 i ty of 120 mg/0.8 00:00: <Unspecifie mg) under [place] mL 00 d side> the skin MD prefilled every 12 [place] o syringe (twelve) n hours. [facility] enoxaparin Yes Deep venous 120mg Inject 0.8 [facility] (LOVENOX) 4-14 thrombosis mL (120 i ty of 120 mg/0.8 00:00: <Unspecifie mg) under [place] mL 00 d side> the skin MD prefilled every 12 [place] o syringe (twelve) n hours. [facility] enoxaparin Yes Deep venous 120mg Inject 0.8 [facility] (LOVENOX) 4-14 thrombosis mL (120 i ty of 120 mg/0.8 00:00: <Unspecifie mg) under [place] mL 00 d side> the skin MD prefilled every 12 [place] o syringe (twelve) n hours. [facility] enoxaparin 2022- No Deep venous 120mg Inject 0.8 [facility] (LOVENOX) 4-14 05-31 thrombosis mL (120 ity of 120 mg/0.8 00:00: 00:00 <Unspecifie mg) under [place] mL 00 :00 d side> the skin MD prefilled every 12 [place]uri o syringe (twelve) n hours. [facility] Center enoxaparin 2022- No Deep venous 120mg Inject 0.8 [facility] (LOVENOX) 02-12-31 thrombosis mL (120 ity of 120 mg/0.8 00:00: 00:00 <Unspecifie mg) under [place] mL 00 :00 d side> the skin MD prefilled every 12 [place]uri o syringe (twelve) n hours. [facility] Center enoxaparin 2022- No Deep venous 120mg Inject 0.8 [facility] (LOVENOX) 02-12-31 thrombosis mL (120 ity of 120 mg/0.8 00:00: 00:00 <Unspecifie mg) under [place] mL 00 :00 d side> the skin MD prefilled every 12 [place]uri o syringe (twelve) n hours. [facility] enoxaparin 2022- No Deep venous 120mg Inject 0.8 [facility] (LOVENOX) 02-12- thrombosis mL (120 ity of 120 mg/0.8 00:00: 00:00 <Unspecifie mg) under [place] mL 00 :00 d side> the skin MD prefilled every 12 [place]uri o syringe (twelve) n hours. [facility] oxyCODONE-a 2022- No Neoplasm 1{tbl} Take [...] pain for up to 45 days. oxyCODONE-a 2023-0 2023- No Neoplasm 1{tbl} Take 1 [facility] cetaminophe [...] n (painful Cancer swallowing Center ). fluticasone 2022-0 Yes Adenoid 100ug Inhale 2 [facility] propionate 4-06 cystic sprays ity o f (FLONASE) 00:00: carcinoma (100 mcg) [place] 50 00 of into each MD mcg/spray nasopharynx nostril Anderso nasal spray , NOS twice n daily. Cancer Center lidocaine 2022-0 Yes Adenocarcin 5mL Sw[place] and [facility] (XYLOCAINE) 4-06 yanely of swallow 5 i ty of 20 mg/mL 00:00: nasopharynx mL every 6 [place] (2%) 00 (six) MD viscous hours as Anderso solution needed n (painful Cancer swallowing Center ). fluticasone 2022-0 Yes Adenoid 100ug Inhale 2 [facility] propionate 4-06 cystic sprays ity o f (FLONASE) 00:00: carcinoma (100 mcg) [place] 50 00 of into each MD mcg/spray nasopharynx nostril Anderso nasal spray , NOS twice n daily. Cancer Center lidocaine 0 Yes Adenocarcin 5mL Swish and [facility] (XYLOCAINE) 4-06 yanely of swallow 5 i ty of 20 mg/mL 00:00: nasopharynx mL every 6 [place] (2%) 00 (six) MD viscous hours as Anderso solution needed n (painful Cancer swallowing Center ). fluticasone 2022-0 Yes Adenoid 100ug Inhale 2 [facility] propionate 4-06 cystic sprays ity o f (FLONASE) 00:00: carcinoma (100 mcg) [place] 50 00 of into each MD mcg/spray nasopharynx nostril Anderso nasal spray , NOS twice n daily. Cancer Center lidocaine 2022-0 Yes Adenocarcin 5mL Swish and [facility] (XYLOCAINE) 4-06 yanely of swallow 5 i ty of 20 mg/mL 00:00: nasopharynx mL every 6 [place] (2%) 00 (six) MD viscous hours as Anderso solution needed n (painful Cancer swallowing Center ). fluticasone 2022-0 Yes Adenoid 100ug Inhale 2 [facility] propionate 4-06 cystic sprays ity o f (FLONASE) 00:00: carcinoma (100 mcg) [place] 50 00 of into each MD mcg/spray nasopharynx nostril Anderso nasal spray , NOS twice n daily. [facility] Center lidocaine Yes Adenocarcin 5mL Swish and [...] nasal spray , NOS twice n daily. [facility] lidocaine Yes Adenocarcin 5mL Swish and [...] nasal spray , NOS twice n daily. [facility] lidocaine Yes Adenocarcin 5mL Swish and [...] nasal spray , NOS twice n daily. [facility] ondansetron 2023- No Adenoid 8mg Take 1 Univers (ZOFRAN) 8 4-06 04-06 cystic tablet (8 i ty of mg tablet 00:00: 04:59 carcinoma mg) by [place] 00 :00 of mouth nasopharynx every 8 Suraj so , NOS (eight) n hours as Cancer needed for Center nausea or vomiting. ondansetron 2022-0 2023- No Adenoid 8mg Take 1 [facility] (ZOFRAN) 8 02-04-06 cystic tablet (8 i ty of mg tablet 00:00: 04:59 carcinoma mg) by [place] 00 :00 of mouth MD nasopharynx every 8 Suraj so , NOS (eight) n hours as Cancer needed for Center nausea or vomiting. ondansetron 2022-2023- No Adenoid 8mg Take 1 [facility] (ZOFRAN) 8 02-04 cystic tablet (8 i ty of mg tablet 00:00: 04:59 carcinoma mg) by [place] 00 :00 of mouth MD nasopharynx every 8 Suraj so , NOS (eight) n hours as Cancer needed for Center nausea or vomiting. ondansetron 2022-2023- No Adenoid 8mg Take 1 [facility] (ZOFRAN) 8 02-04 cystic tablet (8 i ty of mg tablet 00:00: 04:59 carcinoma mg) by [place] 00 :00 of mouth MD nasopharynx every 8 Suraj so , NOS (eight) n hours as Cancer needed for Center nausea or vomiting. ondansetron 2022-0 2023- No Adenoid 8mg Take 1 [facility] (ZOFRAN) 8 02-04 cystic tablet (8 i ty of mg tablet 00:00: 04:59 carcinoma mg) by [place] 00 :00 of mouth nasopharynx every 8 Suraj so , NOS (eight) n hours as Cancer needed for Center nausea or vomiting. ondansetron 2022-0 2023- No Adenoid 8mg Take 1 [facility] (ZOFRAN) 8 02-04-06 cystic tablet (8 i ty of mg tablet 00:00: 04:59 carcinoma mg) by [place] 00 :00 of mouth MD nasopharynx every 8 Suraj so , NOS (eight) n hours as Cancer needed for Center nausea or vomiting. ondansetron 2022-0 2023- No Adenoid 8mg Take 1 [facility] (ZOFRAN) 8 02-04-06 cystic tablet (8 i ty of mg tablet 00:00: 04:59 carcinoma mg) by [place] 00 :00 of mouth MD nasopharynx every 8 Suraj so , NOS (eight) n hours as Cancer needed for Center nausea or vomiting. insulin 2022- No Type 2 USE Unive rs syringe-nee 02-02 diabetes DIRECTED ity of dle U-100 1 00:00: 00:00 mellitus FOUR TIMES [place] mL 31 gauge 00 :00 with DAILY MD x 5/16 syrg hyperglycem A nderso ia n [facility] Center insulin 2022- No Type 2 USE Unive rs syringe-nee 02-02 diabetes DIRECTED ity of dle U-100 1 00:00: 00:00 mellitus FOUR TIMES [place] mL 31 gauge 00 :00 with DAILY MD x 5/16 syrg hyperglycem A nderso ia n [facility] Center insulin 2022- No Type 2 USE Unive rs syringe-nee 02-02 diabetes DIRECTED ity of dle U-100 1 00:00: 00:00 mellitus FOUR TIMES [place] mL 31 gauge 00 :00 with DAILY MD x 5/16 syrg hyperglycem A nderso ia n [facility] Center insulin 2022- No Type 2 USE Unive rs syringe-nee 02-02 diabetes DIRECTED ity of dle U-100 1 00:00: 00:00 mellitus FOUR TIMES [place] mL 31 gauge 00 :00 with DAILY MD x 5/16 syrg hyperglycem A nderso ia n [facility] Center insulin 2022- No Type 2 USE Unive rs syringe-nee 02-02 diabetes DIRECTED ity of dle U-100 1 00:00: 00:00 mellitus FOUR TIMES [place] mL 31 gauge 00 :00 with DAILY MD x 5/16 syrg hyperglycem A nderso ia [facility] Center insulin 2022- No Type 2 USE Unive rs syringe-nee 02-02 diabetes DIRECTED ity of dle U-100 1 00:00: 00:00 mellitus FOUR TIMES [place] mL 31 gauge 00 :00 with DAILY MD x 5/16 syrg hyperglycem A nderso ia n [facility] Center insulin 2022- No Type 2 USE Unive rs syringe-nee 02-02 diabetes DIRECTED ity of dle U-100 1 00:00: 00:00 mellitus FOUR TIMES [place] mL 31 gauge 00 :00 with DAILY MD x 03/16 syrg hyperglycem A nderso ia n Cancer [...] needed for Cancer severe Center pain. gabapentin 2022-2022- No Chronic 800mg Take 1 [facility] (NEURONTIN) 02-01- pain tablet ity o f 800 mg 00:00: 00:00 (800 mg) [place] tablet 00 :00 by mouth MD every 8 Anderso (eight) n hours. [facility] Center gabapentin 2022-2022- No Chronic 800mg Take 1 [facility] (NEURONTIN) 02-01 pain tablet ity o f 800 mg 00:00: 00:00 (800 mg) [place] tablet 00 :00 by mouth MD every 8 Anderso (eight) n hours. [facility] Center gabapentin 2022-2022- No Chronic 800mg Take 1 [facility] (NEURONTIN) 02-01 pain tablet ity o f 800 mg 00:00: 00:00 (800 mg) [place] tablet 00 :00 by mouth MD every 8 Anderso (eight) n hours. [facility] gabapentin 2022-2022- No Chronic 800mg Take 1 [facility] (NEURONTIN) 02-01 pain tablet ity o f 800 mg 00:00: 00:00 (800 mg) [place] tablet 00 :00 by mouth MD every 8 Anderso (eight) n hours. [facility] Center gabapentin 2022-2022- No Chronic 800mg Take 1 [facility] (NEURONTIN) 02-01- pain tablet ity o f 800 mg 00:00: 00:00 (800 mg) [place] tablet 00 :00 by mouth MD every 8 Anderso (eight) n hours. [facility] Center gabapentin 2022-2022- No Chronic 800mg Take 1 [facility] (NEURONTIN) 02-01-02 pain tablet ity o f 800 mg 00:00: 00:00 (800 mg) [place] tablet 00 :00 by mouth MD every 8 Anderso (eight) n hours. [facility] gabapentin 2022- No Chronic 800mg Take 1 [facility] (NEURONTIN) - 05-02 pain tablet ity o f 800 mg 00:00: 00:00 (800 mg) [place] tablet 00 :00 by mouth MD every 8 Anderso (eight) n hours. [facility] pen needle, Yes Type 2 Use to Un ally diabetic 4- diabetes inject ity o f (Easy 00:00: mellitus insulin 4 Frankie as Comfort Pen 00 with times a MD [place]) 31 hyperglycem day A nderso gauge x ia n 03/16" [facility] pen needle, Yes Type 2 Use to Un ally diabetic 4- diabetes inject ity o f (Easy 00:00: mellitus insulin 4 Frankie as Comfort Pen 00 with times a MD [place]) 31 hyperglycem day A nderso gauge x ia n 03/16" [facility] pen needle, Yes Type 2 Use to Un ally diabetic 4- diabetes inject ity o f (Easy 00:00: mellitus insulin 4 [place]ie as Comfort Pen 00 with times a MD [place]) 31 hyperglycem day A nderso gauge x ia n 03/16" [facility] pen needle, Yes Type 2 Use to Un ally diabetic 4- diabetes inject ity o f (Easy 00:00: mellitus insulin 4 [place]ie as Comfort Pen 00 with times a MD [place]) 31 hyperglycem day A nderso gauge x ia n 03/16" [facility] pen needle, Yes Type 2 Use to Un ally diabetic 4-02 diabetes inject ity o f (Easy 00:00: mellitus insulin 4 [place]ie as Comfort Pen 00 with times a MD [place]) 31 hyperglycem day A nderso gauge x ia n 03/16" [facility] pen needle, Yes Type 2 Use to Un ally diabetic 4-02 diabetes inject ity o f (Easy 00:00: mellitus insulin 4 [place]ie as Comfort Pen 00 with times a MD [place]) 31 hyperglycem day A nderso gauge x ia n 03/16" [facility] pen needle, Yes Type 2 Use to Un ally diabetic 4-02 diabetes inject ity o f (Easy 00:00: mellitus insulin 4 [place]ie as Comfort Pen 00 with times a [place]) 31 hyperglycem day A nderso gauge x ia n 03/16" [facility] insulin 2022- No Type 2 Inject [...] 00:00 [place] 00 :00 MD Liane olivier [facility] insulin 2022- No Type 2 Inject [...] 00:00 [place] 00 :00 MD Liane olivier [facility] Center insulin 2022- No Type 2 [...] 00:00 [place] 00 :00 MD Liane olivier [facility] Center insulin 2022- No Type 2 [...] 00:00 [place] 00 :00 MD Liane olivier [facility] Center insulin 2022- No Type 2 [...] 00:00 [place] 00 :00 MD Liane olivier [facility] insulin 2022- No Type 2 Inject [...] 00:00 [place] 00 :00 MD Liane olivier [facility] Center insulin 2022- No Type 2 Inject 5 Uni vers regular 4-02 04-18 diabetes units to ity of (HumuLIN [...] MD [facility] naloxone Yes parts counterman 1 dose Un ally (Narcan) 4 3- current use into one ity of mg/actuatio 00:00: of opiate nostril as [place] n nasal 00 analgesic needed for M D spray opioid Anderso overdose. n another Cancer dose into Center the other nostril after 2 minutes if the patient does not respond naloxone Yes [facility] 1 dose Un ally (Narcan) 4 - current use into one ity of mg/actuatio 00:00: of opiate nostril as [place] n nasal 00 analgesic needed for M D spray opioid Anderso overdose. n another Cancer dose into Center the other nostril after 2 minutes if the patient does not respond naloxone Yes parts counterman 1 dose Un ally (Narcan) 4 3-22 current use into one ity of mg/actuatio 00:00: of opiate nostril as [place] n nasal 00 analgesic needed for M D spray opioid Anderso overdose. n another Cancer dose into Center the other nostril after 2 minutes if the patient does not respond naloxone Yes parts counterman 1 dose Un ally (Narcan) 4 3-22 current use into one ity of mg/actuatio 00:00: of opiate nostril as [place] n nasal 00 analgesic needed for M D spray opioid Anderso overdose. n another Cancer dose into Center the other nostril after 2 minutes if the patient does not respond naloxone 3-0 Yes [facility] 1 dose Un ally (Narcan) 4 3-22 current use into one ity of mg/actuatio 00:00: of opiate nostril as [place] n nasal 00 analgesic needed for M D spray opioid Anderso overdose. n another Cancer dose into Center the other nostril after 2 minutes if the patient does not respond naloxone 3-0 Yes [facility] 1 dose Un ally (Narcan) 4 3-22 current use into one ity of mg/actuatio 00:00: of opiate nostril as [place] n nasal 00 analgesic needed for M D spray opioid Anderso overdose. n another Cancer dose into Center the other nostril after 2 minutes if the patient does not respond naloxone 3-0 Yes parts counterman 1 dose Un ally (Narcan) 4 - current use into one ity of mg/actuatio [...] suspension 00:00: 00:00 mucositis mL 2 (two) [place] (AMB-CMPD) 00 :00 due to times a MD antineoplas day as Lauri o tic therapy needed for n mouth Cancer pain. [place] xyloxylin 2022- No Ulcerative 10mL [facility] oral 01-20-18 oral swallow 10 ity of suspension 00:00: 00:00 mucositis mL 2 (two) [place] (AMB-CMPD) 00 :00 due to times a MD antineoplas day as [place]uri o tic therapy needed for n mouth Cancer pain. [place] xyloxylin 2022- No Ulcerative 10mL [facility] oral 01-20-18 oral swallow 10 ity of suspension 00:00: 00:00 mucositis mL 2 (two) [place] (AMB-CMPD) 00 :00 due to times a MD antineoplas day as Lauri o tic therapy needed for n mouth Cancer pain. [place] xyloxylin 2022- No Ulcerative 10mL [facility] oral 01-20-18 oral swallow 10 ity of suspension 00:00: 00:00 mucositis mL 2 (two) [place] (AMB-CMPD) 00 :00 due to times a MD antineoplas day as [place] o tic therapy needed for n mouth Cancer pain. [place] xyloxylin 2022- No Ulcerative 10mL [facility] oral 01-20 04-18 oral swallow 10 ity of suspension 00:00: 00:00 mucositis mL 2 (two) [place] (AMB-CMPD) 00 :00 due to times a MD antineoplas day as [place] o tic therapy needed for n mouth Cancer pain. [place] xyloxylin 2022- No Ulcerative 10mL [facility] oral 01-20-18 oral swallow 10 ity of suspension 00:00: 00:00 mucositis mL 2 (two) [place] [facility] due to times a MD antineoplas day as [place] o tic therapy needed for n mouth Cancer pain. [place] xyloxylin 2022- No Ulcerative 10mL [facility] oral 01-20-18 oral swallow 10 ity of suspension 00:00: 00:00 mucositis mL 2 (two) [place] [facility] 00 :00 due to times a MD antineoplas day as [place] o tic therapy needed for n mouth Cancer pain. [place] hydrALAZINE 2022- No 100mg Take 1 Un ally (APRESOLINE 3-20 -20 tablet ity o f ) 100 [...] times a n day with Cancer meals. [place] spironolact 2022- No 25mg Take 1 Uni vers one 3-20 03-20 tablet (25 ity of (ALDACTONE) 19:34: 00:00 mg) by [place] as 25 mg 54 :00 mouth MD tablet daily. [facility] hydrALAZINE 2022-2022- No 100mg Take 1 Un ally (APRESOLINE 3-20 03-20 tablet ity o f ) 100 mg 19:34: 00:00 (100 mg) [place] tablet [place] :00 by mouth 3 MD (three) Anderso times a n day. [facility] metFORMIN 2022-0 2022- No 1000mg Take 1 Uni vers (GLUCOPHAGE 3-20 03-20 tablet ity o f ) 1000 mg 19:34: 00:00 (1,000 mg) [place] tablet 54 :00 by mouth 2 MD (two) Anderso times a n day with Cancer meals. [place] spironolact 2022- No 25mg Take 1 Uni vers one 3-20 03-20 tablet (25 ity of (ALDACTONE) 19:34: 00:00 mg) by [place] as 25 mg 54 :00 mouth MD tablet daily. [facility] hydrALAZINE 2022-2022- No 100mg Take 1 Un ally (APRESOLINE 3-20 03-20 tablet ity o f ) 100 mg 19:34: 00:00 (100 mg) [place] tablet 54 :00 by mouth 3 MD (three) Anderso times a n day. [facility] metFORMIN 2022- No 1000mg Take 1 Uni vers (GLUCOPHAGE 3-20 03-20 tablet ity o f ) 1000 mg 19:34: 00:00 (1,000 mg) [place] tablet 54 :00 by mouth 2 MD (two) Anderso times a n day with Cancer meals. [place] spironolact 0 2022- No 25mg Take 1 Uni vers one 3-20 03-20 tablet (25 ity of (ALDACTONE) 19:34: 00:00 mg) by [place] as 25 mg 54 :00 mouth MD tablet daily. [facility] hydrALAZINE 2022-0 2022- No 100mg Take 1 Un ally (APRESOLINE 3-20 03-20 tablet ity o f ) 100 mg 19:34: 00:00 (100 mg) [place] tablet 54 :00 by mouth 3 MD (three) Anderso times a n day. [facility] metFORMIN 2022-2022- No 1000mg Take 1 Uni vers (GLUCOPHAGE 3-20 03-20 tablet ity o f ) 1000 mg 19:34: 00:00 (1,000 mg) [place] tablet 54 :00 by mouth 2 MD (two) Anderso times a n day with Cancer meals. [place] spironolact 2022- No 25mg Take 1 Uni vers one 3-20 03-20 tablet (25 ity of (ALDACTONE) 19:34: 00:00 mg) by [place] as 25 mg 54 :00 mouth MD tablet daily. [facility] hydrALAZINE 2022- No 100mg Take 1 Un ally (APRESOLINE 3-20 03-20 tablet ity o f ) 100 mg 19:34: 00:00 (100 mg) [place] tablet 54 :00 by mouth 3 MD (three) Anderso times a n day. [facility] metFORMIN 2022-2022- No 1000mg Take 1 Uni vers (GLUCOPHAGE 3-20 03-20 tablet ity o f ) 1000 mg 19:34: 00:00 (1,000 mg) [place] tablet 54 :00 by mouth 2 MD (two) Anderso times a n day with Cancer meals. [place] spironolact 2022- No 25mg Take 1 Uni vers one 3-20 03-20 tablet (25 ity of (ALDACTONE) 19:34: 00:00 mg) by [place] as 25 mg 54 :00 mouth MD tablet daily. [facility] hydrALAZINE 2022- No 100mg Take 1 Un ally (APRESOLINE 3-20 03-20 tablet ity o f ) 100 mg 19:34: 00:00 (100 mg) [place] tablet 54 :00 by mouth 3 MD (three) Anderso times a n day. [facility] metFORMIN 2022-0 2022- No 1000mg Take 1 Uni vers (GLUCOPHAGE 3-20 03-20 tablet ity o f ) 1000 mg 19:34: 00:00 (1,000 mg) [place] tablet 54 :00 by mouth 2 MD (two) Anderso times a n day with Cancer meals. [place] spironolact 2022- No 25mg Take 1 Uni vers one 3-20 03-20 tablet (25 ity of (ALDACTONE) 19:34: 00:00 mg) by [place] as 25 mg 54 :00 mouth MD tablet daily. [facility] hydrALAZINE 2022- No 100mg Take 1 Un ally (APRESOLINE 3-20 03-20 tablet ity o f ) 100 mg 19:34: 00:00 (100 mg) [place] tablet 54 :00 by mouth 3 MD (three) Anderso times a n day. Cancer [place] metFORMIN 2022- No 1000mg Take 1 Uni vers (GLUCOPHAGE 3-20 03-20 tablet ity o f ) 1000 mg 19:34: 00:00 (1,000 mg) [place] tablet 54 :00 by mouth 2 MD (two) Anderso times a n day with Cancer meals. [place] spironolact 2022- No 25mg Take 1 Uni vers one 3-20 03-20 tablet (25 ity of (ALDACTONE) 19:34: 00:00 mg) by [place] as 25 mg 54 :00 mouth MD tablet daily. [facility] metoprolol 2022- No Hypertensio 50mg Take 1 [facility] tartrate 3-20 04-20 n tablet (50 ity of (LOPRESSOR) 00:00: 04:59 mg) by [place] as 50 mg 00 :00 mouth MD tablet twice Anderso daily for n 30 days. [facility] metoprolol 2022- No Hypertensio 50mg Take 1 [facility] tartrate 3-20 04-20 n tablet (50 ity of (LOPRESSOR) 00:00: 04:59 mg) by [place] as 50 mg 00 :00 mouth MD tablet twice Anderso daily for n 30 days. [facility] metoprolol 2022- No Hypertensio 50mg Take 1 [facility] tartrate 3-20 04-20 n tablet (50 ity of (LOPRESSOR) 00:00: 04:59 mg) by [place] 50 mg 00 :00 mouth MD tablet twice Anderso daily for n 30 days. [facility] metoprolol 2022- No Hypertensio 50mg Take 1 [facility] tartrate 3-20 04-20 n tablet (50 ity of (LOPRESSOR) 00:00: 04:59 mg) by [place] 50 mg 00 :00 mouth MD tablet twice Anderso daily for n 30 days. [facility] metoprolol 2022- No Hypertensio 50mg Take 1 [facility] tartrate 3-20 04-20 n tablet (50 ity of (LOPRESSOR) 00:00: 04:59 mg) by [place] 50 mg 00 :00 mouth MD tablet twice Anderso daily for n 30 days. [facility] metoprolol 2022- No Hypertensio 50mg Take 1 [facility] tartrate 3-20 04-20 n tablet (50 ity of (LOPRESSOR) 00:00: 04:59 mg) by [place] 50 mg 00 :00 mouth MD tablet twice Anderso daily for n 30 days. [facility] metoprolol No Hypertensio 50mg Take 1 [facility] tartrate 3-20 04-20 n tablet (50 ity of (LOPRESSOR) 00:00: 04:59 mg) by [place] as 50 mg 00 :00 mouth MD tablet twice Anderso daily for n 30 days. [facility] sucralfate 2022- No Ulcerative 1000mg Take 10 mL Univers (CARAFATE) 3-18 02-18 oral (1,000 mg) it y of 100 mg/mL 00:00: 00:00 mucositis by mouth 4 [place] suspension 00 :00 due to (four) MD antineoplas times a Suraj so tic therapy day. n [facility] UNABLE TO 2022- No Compound Uni vers FIND -18 02-18 Drug ity of 00:00: 00:00 [place] 00 :00 MD Rob n [facility] sucralfate 2022- No Ulcerative 1000mg Take 10 mL [facility] (CARAFATE) 3-18 02-18 oral (1,000 mg) it y of 100 mg/mL 00:00: 00:00 mucositis by mouth 4 [place] suspension 00 :00 due to (four) antineoplas times a Suraj so tic therapy day. n [facility] UNABLE TO 2022- No Compound Uni vers FIND -18 02-18 Drug ity of 00:00: 00:00 [place] 00 :00 MD Rob n [facility] sucralfate 2022- No Ulcerative 1000mg Take 10 mL [facility] (CARAFATE) 01-1818 oral (1,000 mg) it y of 100 mg/mL 00:00: 00:00 mucositis by mouth 4 [place] suspension 00 :00 due to (four) MD kusum houser a Suraj so tic therapy day. n [facility] UNABLE TO 2022- No Compound Uni vers FIND 01-18 Drug ity of 00:00: 00:00 [place] 00 :00 MD Rob [facility] sucralfate 2022- No Ulcerative 1000mg Take 10 mL [facility] (CARAFATE) 01-1818 oral (1,000 mg) it y of 100 mg/mL 00:00: 00:00 mucositis by mouth 4 [place] suspension 00 :00 due to (four) MD noe times a Suraj so tic therapy day. n [facility] UNABLE TO 2022- No Compound Uni vers FIND 01-18 Drug ity of 00:00: 00:00 [place] 00 :00 MD Liane olivier [facility] sucralfate 2022- No Ulcerative 1000mg Take 10 mL [facility] (CARAFATE) 01-1818 oral (1,000 mg) it y of 100 mg/mL 00:00: 00:00 mucositis by mouth 4 [place] suspension 00 :00 due to (four) MD noe times a Suraj so tic therapy day. n [facility] UNABLE TO 2022- No Compound Uni vers FIND 01-18 Drug ity of 00:00: :00 [place] 00 :00 MD Liane olivier [facility] sucralfate 2022- No Ulcerative 1000mg Take 10 mL [facility] (CARAFATE) 01-1818 oral (1,000 mg) it y of 100 mg/mL 00:00: 00:00 mucositis by mouth 4 [place] suspension 00 :00 due to (four) MD noe times a Suraj so tic therapy day. n [facility] UNABLE TO 2022- No Compound Uni vers FIND 01-18 Drug ity of 00:00: 00:00 [place] 00 :00 MD Rob [facility] sucralfate 2022- No Ulcerative 1000mg Take 10 [...] needed for Cancer severe Center pain. oxyCODONE-a No Neoplasm 1{tbl} Take 1 [facility] cetaminophe -20 - related tablet by ity of n 00:00: 00:00 pain mouth [place] (Percocet) 00 :00 (acute) every 6 MD 5 mg-325 mg (chronic) (six) An derso per tablet hours as n needed for Cancer severe Center pain. oxyCODONE-a No Neoplasm 1{tbl} Take [...] directed. ity o f needle 00:00: 14:58 [place] 00 :12 MD Liane olivier [facility] Center insulin 2022- No Type 2 [...] directed. ity o f needle 00:00: 14:58 [place] 00 :12 MD Liane olivier [facility] insulin 2022- No Type 2 50U [...] directed. ity o f needle 00:00: 14:58 [place] 00 :12 MD Liane olivier [facility] Center insulin 2022- No Type 2 [...] directed. ity o f needle 00:00: 14:58 [place] 00 :12 MD Liane olivier [facility] [...] directed. ity o f needle 00:00: 14:58 [place] 00 :12 MD Liane olivier [facility] Center insulin 2022- No Type 2 [...] directed. ity o f needle 00:00: 14:58 [place] 00 :12 MD Liane olivier [facility] [...] of suspension 00:00: 00:00 mucositis mL by [place] (AMB-CMPD) 00 :00 due to mouth antineoplas every 6 Suraj so tic therapy (six) n hours as Cancer needed for Center mouth pain. cyclobenzap 2022-0 2022- No Cancer 10mg Take 1 U nivers rine -01-20 associated tablet (10 it y of (FLEXERIL) 00:00: 00:00 pain mg) [place] 10 mg 00 :00 mouth 3 MD tablet (three) Anderso times a n day as Cancer needed for Center muscle spasms (neck pain). xyloxylin 2022-0 2022- No Ulcerative 10mL [facility] oral 01-18 oral swallow 10 ity of suspension 00:00: 00:00 mucositis mL by [place] ([facility]) 00 :00 due to mouth MD antineoplas every 6 Suraj so tic therapy (six) n hours as Cancer needed for Center mouth pain. cyclobenzap 2022- No Cancer 10mg Take 1 U nivers rine -01-20 associated tablet (10 it y of (FLEXERIL) 00:00: 00:00 pain mg) [place] 10 mg 00 :00 mouth 3 MD tablet (three) Anderso times a n day as Cancer needed for Center muscle spasms (neck pain). xyloxylin 2022-0 2022- No Ulcerative 10mL [facility] oral 01-18 oral swallow 10 ity of suspension 00:00: 00:00 mucositis mL by [place] ([facility]) 00 :00 due to mouth MD antineoplas every 6 Suraj so tic therapy (six) n hours as Cancer needed for Center mouth pain. cyclobenzap 2022-0 2022- No Cancer 10mg Take 1 U nivers rine 01-18 associated tablet (10 it y of (FLEXERIL) 00:00: 00:00 pain mg) [place] 10 mg 00 :00 mouth 3 MD tablet (three) Anderso times a n day as Cancer needed for Center muscle spasms (neck pain). xyloxylin 2022-0 2022- No Ulcerative 10mL [facility] oral 01-18 oral swallow 10 ity of suspension 00:00: 00:00 mucositis mL by [place] ([facility]) 00 :00 due to mouth MD [...] of suspension 00:00: 00:00 mucositis mL by [place] ([facility]) 00 :00 due to mouth MD [...] of suspension 00:00: 00:00 mucositis mL by [place] ([facility]) 00 :00 due to mouth MD [...] of suspension 00:00: 00:00 mucositis mL by [place] ([facility]) 00 :00 due to mouth MD antineoplas every 6 Suraj so tic therapy (six) n hours as Cancer needed for Center mouth pain. oxyCODONE-a 2022- No Neoplasm 1{tbl} Take 1 [facility] cetaminophe 3-18 01-20 related tablet by ity of n [...] Ulcerative 1000mg Take 10 mL [facility] (CARAFATE) -18 01-20 oral (1,000 mg) it y of [...] therapy needed for n mouth Cancer pain. [place] oxyCODONE-a 2022- No Neoplasm 1{tbl} Take 1 [...] No Hypertensio 50mg Take 1 [facility] tartrate -20 -20 n tablet (50 ity of (LOPRESSOR) [...] No Adenocarcin 5mL [facility] (XYLOCAINE) 3 03-20 yanely of swallow 5 ity of 20 mg/mL 00:00: 00:00 nasopharynx mL every 6 [place] (2%) 00 :00 (six) MD viscous hours as Anderso solution needed n (painful Cancer swallowing Center ). lidocaine 2022- No Adenocarcin 5mL [facility] (XYLOCAINE) 3 03-20 yanely of swallow 5 ity of 20 mg/mL 00:00: 00:00 nasopharynx mL every 6 [place] (2%) 00 :00 (six) MD viscous hours as Anderso solution needed n (painful Cancer swallowing Center ). lidocaine 2022- No Adenocarcin 5mL [facility] (XYLOCAINE) 3 03-20 yanely of swallow 5 ity of 20 mg/mL 00:00: 00:00 nasopharynx mL every 6 [place] (2%) 00 :00 (six) MD viscous hours as Anderso solution needed n (painful Cancer swallowing Center ). lidocaine 2022- No Adenocarcin 5mL [facility] (XYLOCAINE) 3 03-20 yanely of swallow 5 ity of 20 mg/mL 00:00: 00:00 nasopharynx mL every 6 [place] (2%) 00 :00 (six) MD viscous hours as Anderso solution needed n (painful Cancer swallowing Center ). lidocaine 2022- No Adenocarcin 5mL [facility] (XYLOCAINE) 3 03-20 yanely of swallow 5 ity of 20 mg/mL 00:00: 00:00 nasopharynx mL every 6 [place] (2%) 00 :00 (six) MD viscous hours as Anderso solution needed n (painful Cancer swallowing Center ). lidocaine 2022- No Adenocarcin 5mL [facility] (XYLOCAINE) 01-04 03-20 yanely of swallow 5 ity of 20 mg/mL 00:00: 00:00 nasopharynx mL every 6 [place] (2%) 00 :00 (six) MD viscous hours as Anderso solution needed n (painful Cancer swallowing Center ). oxyCODONE-a 2022- No Neoplasm 1{tbl} Take 1 [facility] cetaminophe 01-01 03-14 related tablet by ity of n 00:00: 00:00 pain mouth [place] (Percocet) 00 :00 (acute) every 4 MD 5 mg-325 mg (chronic) (four) A nderso per tablet hours as n needed for Cancer moderate Center pain. oxyCODONE-a 2022- No Neoplasm 1{tbl} Take 1 [facility] cetaminophe 3-01 01- related tablet by ity of n 00:00: [...] No Neoplasm 1{tbl} Take 1 [facility] cetaminophe 3-01-12 related tablet by ity of n 00:00: 00:00 pain mouth [place] (Percocet) 00 :00 (acute) every 4 MD 5 mg-325 mg (chronic) (four) A nderso per tablet hours as n needed for Cancer moderate Center pain. oxyCODONE-a 2022- No Neoplasm 1{tbl} Take 1 [facility] cetaminophe 3-01 01- related tablet by ity of n 00:00: [...] Cancer 10mg Take 1 U nivers rine 3-20 associated tablet (10 it y of (FLEXERIL) [...] for Pain. Indication s: chronic pain HYDROcodone 2022-2022- No 2745 1{tbl} Take 1 U nivers -acetaminop 2-23 05-04 tablet by it y of hen 7.5-325 00:00: 00:00 mouth [place] mg per 00 :00 every 6 Medical tablet (six) [place] hours as needed for Pain. Indication s: chronic pain sodium 2022-2022- No Adenoid Inject 10 Un ally chloride 2-22 04-18 cystic mL (1 ity of (NS) 0.9% 00:00: 00:00 carcinoma syringe) [place] flush 00 :00 of into each MD syringe 10 nasopharynx lumen of Anderso mL , NOS central n venous Cancer catheter Center daily as directed. sodium 2022-2022- No Adenoid Inject 10 Un ally chloride [...] No Adenocarcin 8mg Dissolve 1 [facility] (ZOFRAN-ODT 17 -17 yanely of tablet (8 ity of ) 8 mg 00:00: 00:00 nasopharynx mg) on the [place] disintegrat 00 :00 tongue MD ing tablet every 8 Lauri o (eight) n hours as Cancer needed for Center nausea. ondansetron 3-0 2023- No Adenocarcin 8mg Dissolve 1 [facility] (ZOFRAN-ODT 12-18-17 yanely of tablet (8 ity of ) 8 mg 00:00: 00:00 nasopharynx mg) on the [place] disintegrat 00 :00 tongue MD ing tablet every 8 Lauri o (eight) n hours as Cancer needed for Center nausea. ondansetron 3-0 2023- No Adenocarcin 8mg Dissolve 1 [facility] (ZOFRAN-ODT 12-18 yanely of tablet (8 ity of ) 8 mg 00:00: 00:00 nasopharynx mg) on the [place] disintegrat 00 :00 tongue MD ing tablet every 8 Lauri o (eight) n hours as Cancer needed for Center nausea. ondansetron 3-0 2023- No Adenocarcin 8mg Dissolve 1 [facility] (ZOFRAN-ODT 12-18 yanely of tablet (8 ity of ) 8 mg 00:00: 00:00 nasopharynx mg) on the [place] disintegrat 00 :00 tongue MD ing tablet every 8 Lauri o (eight) n hours as Cancer needed for Center nausea. ondansetron 3-0 2023- No Adenocarcin 8mg Dissolve 1 [facility] (ZOFRAN-ODT 12-18 yanely of tablet (8 ity of ) 8 mg 00:00: 00:00 nasopharynx mg) on the [place] disintegrat 00 :00 tongue MD ing tablet every 8 Lauri o (eight) n hours as Cancer needed for Center nausea. ondansetron 3-0 2023- No Adenocarcin 8mg Dissolve 1 [facility] (ZOFRAN-ODT 12-18-17 yanely of tablet (8 ity of ) 8 mg 00:00: 00:00 nasopharynx mg) on the [place] disintegrat 00 :00 tongue MD ing tablet every 8 Lauri o (eight) n hours as Cancer needed for Center nausea. ondansetron 2023-0 2023- No Adenocarcin 8mg Dissolve 1 [facility] (ZOFRAN-ODT 12-18-17 yanely of tablet (8 ity of ) 8 mg 00:00: 00:00 nasopharynx mg) on the [place] disintegrat 00 :00 tongue MD ing tablet every 8 Lauri o (eight) n hours as Cancer needed for Center nausea. prochlorper 3-0 Yes Adenoid 10mg Take 1 U nivers [...] ity of (Compazine) 00:00: carcinoma mg) by [place] 10 mg 00 of mouth MD tablet nasopharynx every 6 And erso , NOS (six) n hours as Cancer needed for Center nausea or vomiting (if not controlled by Ondansetro n). prochlorper 3-0 Yes Adenoid 10mg Take 1 U nivers [...] ity of (Compazine) 00:00: carcinoma mg) by [place] 10 mg 00 of mouth MD tablet nasopharynx every 6 And erso , NOS (six) n hours as Cancer needed for Center nausea or vomiting (if not controlled by Ondansetro n). prochlorper 3-0 Yes Adenoid 10mg Take 1 U nivers azine 2-16 cystic tablet (10 ity of (Compazine) 00:00: carcinoma mg) by [place] 10 mg 00 of mouth MD tablet nasopharynx every 6 And erso , NOS (six) n hours as Cancer needed for Center nausea or vomiting (if not controlled by Ondansetro n). ondansetron 3-0 2023- No Adenoid 8mg Take 1 Univers (ZOFRAN) 8 16 04-06 cystic tablet (8 i ty of mg tablet 00:00: 00:00 carcinoma mg) by [place] 00 :00 of mouth MD nasopharynx every 8 Suraj so , NOS (eight) n hours as Cancer needed for Center nausea or vomiting. ondansetron 2023-0 2023- No Adenoid 8mg Take 1 [facility] (ZOFRAN) 8 12-17 04-06 cystic tablet (8 i ty of mg tablet 00:00: 00:00 carcinoma mg) by [place] 00 :00 of mouth MD nasopharynx every 8 Suraj so , NOS (eight) n hours as Cancer needed for Center nausea or vomiting. ondansetron 3-0 2023- No Adenoid 8mg Take 1 [facility] (ZOFRAN) 8 12-17 04-06 cystic tablet (8 i ty of mg tablet 00:00: 00:00 carcinoma mg) by [place] 00 :00 of mouth MD nasopharynx every 8 Suraj so , NOS (eight) n hours as Cancer needed for Center nausea or vomiting. ondansetron 2023-0 2023- No Adenoid 8mg Take 1 [facility] (ZOFRAN) 8 -16 04-06 cystic tablet (8 i ty of mg tablet 00:00: 00:00 carcinoma mg) by [place] 00 :00 of mouth MD nasopharynx every 8 Suraj so , NOS (eight) n hours as Cancer needed for Center nausea or vomiting. ondansetron 2023-0 2023- No Adenoid 8mg Take 1 Univers [...] Adenoid 8mg Take 1 [facility] (ZOFRAN) 8 -16 04-06 cystic tablet (8 i ty of mg tablet 00:00: 00:00 carcinoma mg) by [place] 00 :00 of mouth nasopharynx every 8 Suraj so , NOS (eight) n hours as Cancer needed for Center nausea or vomiting. fluoride, 2022- No Adenoid Apply to Univers sodium, 2-15 03-14 cystic teeth ity of (DENTAGEL) 00:00: 00:00 carcinoma daily for [place] 1.1% dental 00 :00 of 30 days. gel nasophMYLA Workman [facility] fluoride, 2022- No Adenoid Apply to Univers sodium, 2-15 03-14 cystic teeth ity of (DENTAGEL) 00:00: 00:00 carcinoma daily for [place] 1.1% dental 00 :00 of 30 days. gel nasophMYLA Workman [facility] Center fluoride, 2022- No Adenoid Apply to Univers sodium, 2-15 03-14 cystic teeth ity of (DENTAGEL) 00:00: 00:00 carcinoma daily for [place] 1.1% dental 00 :00 of 30 days. gel nasophMYLA Workman [facility] Center fluoride, 2022- No Adenoid Apply to Univers sodium, 2-15 03-14 cystic teeth ity of (DENTAGEL) 00:00: 00:00 carcinoma daily for [place] 1.1% dental 00 :00 of 30 days. gel nasopharynx [facility]LA [facility] fluoride, 2022- No Adenoid Apply to Univers sodium, 12-16 cystic teeth ity of (DENTAGEL) 00:00: 00:00 carcinoma daily for [place] 1.1% dental 00 :00 of 30 days. MD fairchild nasopharynx MYLA Rob [facility] fluoride, 2022- No Adenoid Apply to Univers sodium, 12-16 cystic teeth ity of (DENTAGEL) 00:00: 00:00 carcinoma daily for [place] 1.1% dental 00 :00 of 30 days. MD fairchild nasopharynx MYLA Rob [facility] fluoride, 2022- No Adenoid Apply to Univers sodium, 12-16 cystic teeth ity of (DENTAGEL) 00:00: 00:00 carcinoma daily for [place] 1.1% dental 00 :00 of 30 days. MD gurinder arellanoopharynx MYLA Rob [facility] celecoxib 2022- No Headache, 200mg Take 1 Univers (CeleBREX) 12-16 not capsule ity o f 200 mg 00:00: 00:00 otherwise (200 mg) [place] capsule 00 :00 specified by mouth MD daily. [facility] celecoxib 2022- No Headache, 200mg Take 1 Univers (CeleBREX) 12-16 not capsule ity o f 200 mg 00:00: 00:00 otherwise (200 mg) [place] capsule 00 :00 specified by mouth MD daily. [facility] celecoxib 2022- No Headache, 200mg Take 1 Univers (CeleBREX) 12-16 not capsule ity o f 200 mg 00:00: 00:00 otherwise (200 mg) [place] capsule 00 :00 specified by mouth MD daily. [facility] celecoxib 2022- No Headache, 200mg Take 1 Univers (CeleBREX) 12-16 not capsule ity o f 200 mg 00:00: 00:00 otherwise (200 mg) [place] capsule 00 :00 specified by mouth MD daily. [facility] celecoxib 2022- No Headache, 200mg Take 1 Univers (CeleBREX) 12-16 not capsule ity o f 200 mg 00:00: 00:00 otherwise (200 mg) [place] capsule 00 :00 specified by mouth MD daily. [facility] celecoxib 2022- No Headache, 200mg Take 1 Univers (CeleBREX) 12-16 not capsule ity o f 200 mg 00:00: 00:00 otherwise (200 mg) [place] capsule 00 :00 specified by mouth MD daily. [facility] celecoxib 2022- No Headache, 200mg Take 1 Univers (CeleBREX) 12-16 not capsule ity o f 200 mg 00:00: 00:00 otherwise (200 mg) [place] capsule 00 :00 specified by mouth MD daily. [facility] Vicza Yes Type 2 1.8mg Inject 0.3 U nivers 2-Patrick 0.6 2-14 diabetes mL (1.8 ity of mg/0.1 mL 00:00: mellitus mg) under [place] (18 mg/3 00 without the skin MD mL) pnij complicatio daily. [facility] Type 2 1.8mg Inject 0.3 U nivers 2-Patrick 0.6 2-14 diabetes mL (1.8 ity of mg/0.1 mL 00:00: mellitus mg) under [place] (18 mg/3 00 without the skin MD mL) pnij complicatio daily. [facility] Type 2 1.8mg Inject 0.3 U nivers 2-Patrick 0.6 2-14 diabetes mL (1.8 ity of mg/0.1 mL 00:00: mellitus mg) under [place] (18 mg/3 00 without the skin MD mL) pnij complicatio daily. An derso injection [facility] Victoza Yes Type 2 1.8mg Inject 0.3 U nivers 2-Patrick 0.6 2-14 diabetes mL (1.8 ity of mg/0.1 mL 00:00: mellitus mg) under [place] (18 mg/3 00 without the skin MD mL) pnij complicatio daily. An derso injection [facility] Victoza Yes Type 2 1.8mg Inject 0.3 U nivers 2-Patrick 0.6 2-14 diabetes mL (1.8 ity of mg/0.1 mL 00:00: mellitus mg) under [place] (18 mg/3 00 without the skin MD mL) pnij complicatio daily. An derso injection n n [facility] Yes Type 2 1.8mg Inject 0.3 U nivers 2-Patrick 0.6 2-14 diabetes mL (1.8 ity of mg/0.1 mL 00:00: mellitus mg) under [place] (18 mg/3 00 without the skin MD mL) pnij complicatio daily. An derso injection n n [facility] Yes Type 2 1.8mg Inject 0.3 U nivers 2-Patrick 0.6 2-14 diabetes mL (1.8 ity of mg/0.1 mL 00:00: mellitus mg) under [place] (18 mg/3 00 without the skin MD mL) pnij complicatio daily. An derso injection n n Cancer [address] [facility] 2022- No Type 2 1{devic Inject 1 [...] 8 [place] (eight) n hours. [facility] 2022- No Type 2 1{devic Inject 1 Univers Gen Pen 12-15 diabetes e} Device ity o f Needle 32 00:00: 00:00 mellitus under the [place] gauge x 00 :00 without skin 3 MD " ndle complicatio (three) Anderso n times a n day before Cancer meals. Center gabapentin 2022- No Headache, 600mg Take 1 Univers (NEURONTIN) 2-14 04-03 not tablet ity o f 600 mg 00:00: 00:00 otherwise (600 mg) [place] tablet 00 :00 specified by mouth MD every 8 Anderso (eight) n hours. Cancer [address] 2022- No Type 2 1{devic Inject 1 Univers Gen Pen 12-15 diabetes e} Device ity o f Needle 32 00:00: 00:00 mellitus under the [place] gauge x 00 :00 without skin 3 MD 32" ndle complicatio (three) [place] n times a n day before Cancer meals. [address] gabapentin 2022- No Headache, 600mg Take 1 Univers (NEURONTIN) 12-15 not tablet ity o f 600 mg 00:00: 00:00 otherwise (600 mg) [place] tablet 00 :00 specified by mouth MD every 8 [place] (eight) n hours. [address] 2022- No Type 2 1{devic Inject 1 Univers Gen Pen 12-15 diabetes e} Device ity o f Needle 32 00:00: 00:00 mellitus under the [place] gauge x 00 :00 without skin 3 MD 32" ndle complicatio (three) [place] n times a n day before Cancer meals. [address] gabapentin 2022- No Headache, 600mg Take 1 Univers (NEURONTIN) 12-15 not tablet ity o f 600 mg 00:00: 00:00 otherwise (600 mg) [place] tablet 00 :00 specified by mouth MD every 8 Anderso (eight) n hours. Cancer [address] 2022- No Type 2 1{devic Inject 1 [facility] Gen Pen 12-15 diabetes e} Device ity o f Needle 32 00:00: 00:00 mellitus under the [place] gauge x 00 :00 without skin 3 MD 32" ndle complicatio (three) [place] n times a n day before Cancer meals. [address] gabapentin 2022- No Headache, 600mg Take 1 Univers (NEURONTIN) 12-15 not tablet ity o f 600 mg 00:00: 00:00 otherwise (600 mg) [place] tablet 00 :00 specified by mouth MD every 8 Anderso (eight) n hours. [address] 2022- No Type 2 1{devic Inject 1 [...] MD every 8 Anderso (eight) n hours. [facility] 2nd 2022- No Type 2 1{devic [...] MD every 8 [place] (eight) n hours. [facility] metoprolol 2022- No Hypertensio 50mg Take 1 Univers tartrate 12-15-20 n tablet (50 ity of (LOPRESSOR) 00:00: 00:00 mg) by [place] as 50 mg 00 :00 mouth MD tablet twice [place]o daily for n 30 days. Cancer [address] insulin 2022- No Type 2 110U Inject [...] twice Anderso daily for n 30 days. [facility] insulin 2022- No Type 2 110U [...] twice Anderso daily for n 30 days. [facility] insulin 2022- No Type 2 110U [...] twice [place]o daily for n 30 days. [facility] insulin 2022- No Type 2 110U [...] twice [place]o daily for n 30 days. [facility] insulin 2022- No Type 2 110U [...] twice Anderso daily for n 30 days. [facility] insulin 2022- No Type 2 110U [...] twice Anderso daily for n 30 days. [facility] insulin 2022- No Type 2 110U Inject Unive rs regular hum -12 01-20 diabetes 110-160 ity of U-500 conc 00:00: [...] No Neoplasm 1{tbl} Take 1 Univers cetaminophe 201-01 related tablet by ity of n 00:00: [...] 00 :00 mouth MD twice Anders[place] daily. [facility] dexamethaso 2022- No Adenocarcin 2mg Take 1 Univers ne 2- 03-14 yanely of tablet (2 ity of (DECADRON) 00:00: 00:00 nasopharynx mg) by [place] 2 mg tablet 00 :00 mouth MD twice Anderso daily. [facility] dexamethaso 2022- No Adenocarcin 2mg Take 1 Univers ne 2-14 yanely of tablet (2 ity of (DECADRON) 00:00: 00:00 nasopharynx mg) by [place] 2 mg tablet 00 :00 mouth MD twice Anderso daily. [facility] dexamethaso 2022- No Adenocarcin 2mg Take 1 Univers ne 2-14 yanely of tablet (2 ity of (DECADRON) 00:00: 00:00 nasopharynx mg) by [place] 2 mg tablet 00 :00 mouth twice Anderso daily. [facility] dexamethaso 2022- No Adenocarcin 2mg Take 1 Univers ne 2-14 yanely of tablet (2 ity of (DECADRON) 00:00: 00:00 nasopharynx mg) by [place] 2 mg tablet 00 :00 mouth MD twice Anderso daily. [facility] dexamethaso 2022- No Adenocarcin 2mg Take 1 Univers ne 2-02 01-14 yanely of tablet (2 ity of (DECADRON) 00:00: 00:00 nasopharynx mg) by [place] 2 mg tablet 00 :00 mouth twice Anderso daily. [facility] dexamethaso 2022- No Adenocarcin 2mg Take 1 Univers ne 2 03-14 yanely of tablet (2 ity of (DECADRON) 00:00: 00:00 nasopharynx mg) by [place] 2 mg tablet 00 :00 mouth MD twice Anderso daily. [facility] HYDROmorpho 2022- No Adenocarcin 2mg Take 1 Univers ne 2 02-14 yanely of tablet (2 ity of (DILAUDID) 00:00: 00:00 nasopharynx mg) by [place] 2 mg tablet 00 :00 mouth MD every 4 Anderso (four) n hours as Cancer needed Center (cancer pain). HYDROmorpho 2023-0 2023- No Adenocarcin 2mg Take 1 Univers ne 12-02 02-14 yanely of tablet (2 ity of (DILAUDID) 00:00: 00:00 nasopharynx mg) by [place] 2 mg tablet 00 :00 mouth MD every 4 Anderso (four) n hours as Cancer needed Center (cancer pain). HYDROmorpho 2023-0 2023- No Adenocarcin 2mg Take 1 Univers ne 12-02 02-14 yanely of tablet (2 ity of (DILAUDID) 00:00: 00:00 nasopharynx mg) by [place] 2 mg tablet 00 :00 mouth MD every 4 Anderso (four) n hours as Cancer needed Center (cancer pain). HYDROmorpho 2023-0 2023- No Adenocarcin 2mg Take 1 Univers ne 12-02 02-14 yanely of tablet (2 ity of (DILAUDID) 00:00: 00:00 nasopharynx mg) by [place] 2 mg tablet 00 :00 mouth MD every 4 Anderso (four) n hours as Cancer needed Center (cancer pain). HYDROmorpho 2023-0 2023- No Adenocarcin 2mg Take 1 Univers ne 12-02 02-14 yanely of tablet (2 ity of (DILAUDID) 00:00: 00:00 nasopharynx mg) by [place] 2 mg tablet 00 :00 mouth MD every 4 Anderso (four) n hours as Cancer needed Center (cancer pain). HYDROmorpho 2023-0 2023- No Adenocarcin 2mg Take 1 Univers ne 12-02 02-14 yanely of tablet (2 ity of (DILAUDID) 00:00: 00:00 nasopharynx mg) by [place] 2 mg tablet 00 :00 mouth MD every 4 Anderso (four) n hours as Cancer needed Center (cancer pain). HYDROmorpho 2023-0 2023- No Adenocarcin 2mg Take 1 Univers ne 12-02 02-14 yanely of tablet (2 ity of (DILAUDID) 00:00: 00:00 nasopharynx mg) by [place] 2 mg tablet 00 :00 mouth MD every 4 Anderso (four) n hours as Cancer needed Center (cancer pain). ondansetron 2022-0 202- No Adenocarcin 8mg Dissolve 1 Univers (ZOFRAN-ODT 11-2617 yanely of tablet (8 ity of ) 8 mg 00:00: 00:00 nasopharynx mg) on the [place] disintegrat 00 :00 tongue MD ing tablet every 8 Lauri o (eight) n hours as Cancer needed for Center nausea. ondansetron 2022-0 2022- No Adenocarcin 8mg Dissolve 1 Univers (ZOFRAN-ODT 11-26 yanely of tablet (8 ity of ) 8 mg 00:00: 00:00 nasopharynx mg) on the [place] disintegrat 00 :00 tongue MD ing tablet every 8 Lauri o (eight) n hours as Cancer needed for Center nausea. ondansetron 2022-0 2022- No Adenocarcin 8mg Dissolve 1 Univers [...] as Cancer needed for Center nausea. ondansetron 2022-0 2022- No Adenocarcin 8mg Dissolve 1 [facility] (ZOFRAN-ODT 11-26 yanely of tablet (8 ity of ) 8 mg 00:00: 00:00 nasopharynx mg) on the [place] disintegrat 00 :00 tongue MD ing tablet every 8 Lauri o (eight) n hours as Cancer needed for Center nausea. ondansetron 3-0 2023- No Adenocarcin 8mg Dissolve 1 Univers (ZOFRAN-ODT 11-26-17 yanely of tablet (8 ity of ) 8 mg 00:00: 00:00 nasopharynx mg) on the [place] disintegrat 00 :00 tongue MD ing tablet every 8 Lauri o (eight) n hours as Cancer needed for Center nausea. ondansetron 2023-0 2023- No Adenocarcin 8mg Dissolve 1 Univers (ZOFRAN-ODT 11-26 02-17 yanely of tablet (8 ity of ) 8 mg 00:00: 00:00 nasopharynx mg) on the [place] disintegrat 00 :00 tongue MD ing tablet every 8 Lauri o (eight) n hours as Cancer needed for Center nausea. HYDROcodone 2022-0 Yes 2745 1{tbl} Take 1 [...] Indication s: chronic pain colchicine 2022-0 Yes [id number] .6mg Take 1 U nivers 0.6 mg 1-18 tablet by ity of tablet 00:00: mouth in [place] 00 the Medical morning. Branch HYDROcodone 2022-0 Yes 2745 1{tbl} Take 1 Un ally -acetaminop 1-18 tablet by ity of hen 7.5-325 00:00: mouth [place] mg per 00 every 6 Medical tablet (six) Branch hours as needed for Pain. Indication s: chronic pain colchicine 2022-0 Yes [id number] .6mg Take 1 U nivers 0.6 mg 1-18 tablet by ity of tablet 00:00: mouth in [place] 00 the Medical morning. Branch colchicine 2022-0 Yes [id number] .6mg Take 1 U nivers 0.6 mg 1-18 tablet by ity of tablet 00:00: mouth in [place] 00 the Medical morning. Branch colchicine 2022-0 Yes [id number] .6mg Take 1 U nivers 0.6 mg 1-18 tablet by ity of tablet 00:00: mouth in [place] 00 the Medical morning. Branch colchicine 2022-0 Yes [id number] .6mg Take 1 U nivers 0.6 mg 1-18 tablet by ity of tablet 00:00: mouth in [place] 00 the Medical morning. Branch colchicine 2022-0 Yes [id number] .6mg Take 1 U nivers 0.6 mg 1-18 tablet by ity of tablet 00:00: mouth in [place] 00 the Medical morning. Branch colchicine 2022-0 Yes [id number] .6mg Take 1 U nivers 0.6 mg 1-18 tablet by ity of tablet 00:00: mouth in [place] 00 the Medical morning. Branch colchicine 2022-0 Yes [id number] .6mg Take 1 U nivers 0.6 mg 1-18 tablet by ity of tablet 00:00: mouth in [place] 00 the Medical morning. Branch colchicine 2022-0 Yes [id number] .6mg Take 1 U nivers 0.6 mg 1-18 tablet by ity of tablet 00:00: mouth in [place] 00 the Medical morning. Branch HYDROcodone 2022- No 2745 1{tbl} Take 1 U nivers -acetaminop 1-18 12-24 tablet by it y of hen 7.5-325 00:00: 00:00 mouth [place] mg per 00 :00 every 6 Medical tablet (six) Branch [facility] as needed for Pain. Indication s: chronic pain HumuLIN 2022- No Univers 70/30 U-100 11-16 ity of Insulin 100 00:00: 00:00 [place] unit/mL 00 :00 (70-30) [place] injection Cancer Center HumuLIN 2022- No Univers 70/30 U-100 11-16 ity of Insulin 100 00:00: 00:00 [place] unit/mL 00 :00 (70-30) [place] injection n Cancer Center HumuLIN 2022- No Univers 70/30 U-100 11-16 ity of Insulin 100 00:00: 00:00 [place] unit/mL 00 :00 (70-30) [place]o injection n Cancer Center HumuLIN 2022- No Univers 70/30 U-100 11-16 ity of Insulin 100 00:00: 00:00 [place] unit/mL 00 :00 (70-30) [place] injection n Cancer Center HumuLIN 2022- No Univers 70/30 U-100 11-16 ity of Insulin 100 00:00: 00:00 [place] unit/mL 00 :00 (70-30) [facility] HumuLIN 20[facility]-0 2022- No Univers 70/30 U-100 11-16 ity of Insulin 100 00:00: 00:00 [place] unit/mL 00 :00 (70-30) [facility] HumuLIN 0 2022- No Univers 70/30 U-100 11-16 ity of Insulin 100 00:00: 00:00 [place] unit/mL 00 :00 (70-30) [facility] injection Cancer [address] HYDROCHLORO 2022-0 Yes [id number] 12.5mg TAKE 1 Univers THIAZIDE 1-09 CAPSULE BY ity o f 12.5 mg 00:00: MOUTH [place] capsule 00 DAILY Medical Branch LISINOPRIL 2022-0 Yes [id number] TAKE 1/2 Univers 40 mg 1-09 TABLET BY ity of tablet 00:00: MOUTH [place] 00 TWICE Medical DAILY Branch HYDRALAZINE 2022-0 Yes [id number] TAKE 1 Univers 100 mg 1-09 TABLET BY ity of tablet 00:00: MOUTH [place] THREE Medical TIMES Branch DAILY HYDROCHLORO 2022-0 Yes [id number] 12.5mg TAKE 1 Univers THIAZIDE 1-09 CAPSULE BY ity o f 12.5 mg 00:00: MOUTH [place] capsule 00 DAILY Medical Branch LISINOPRIL 2022-0 Yes [id number] TAKE 1/2 Univers 40 mg 1-09 TABLET BY ity of tablet 00:00: MOUTH [place] 00 TWICE Medical DAILY Branch HYDRALAZINE 3-0 Yes [id number] TAKE 1 Univers 100 mg 1-09 TABLET BY ity of tablet 00:00: MOUTH [place] 00 THREE Medical TIMES Branch DAILY HYDROCHLORO 3-0 Yes [id number] 12.5mg TAKE 1 Univers THIAZIDE 1-09 CAPSULE BY ity o f 12.5 mg 00:00: MOUTH [place] capsule 00 DAILY Medical Branch LISINOPRIL 3-0 Yes [id number] TAKE 1/2 Univers 40 mg 1-09 TABLET BY ity of tablet 00:00: MOUTH [place] 00 TWICE Medical DAILY Branch HYDRALAZINE 3-0 Yes [id number] TAKE 1 Univers 100 mg 1-09 TABLET BY ity of tablet 00:00: MOUTH [place] 00 THREE Medical TIMES Branch DAILY HYDROCHLORO 3-0 Yes [id number] 12.5mg TAKE 1 Univers THIAZIDE 1-09 CAPSULE BY ity o f 12.5 mg 00:00: MOUTH [place] capsule 00 DAILY Medical Branch LISINOPRIL 2023-0 Yes [id number] TAKE 1/2 Univers 40 mg 1-09 TABLET BY ity of tablet 00:00: MOUTH [place] 00 TWICE Medical DAILY Branch HYDRALAZINE 2023-0 Yes [id number] TAKE 1 Univers 100 mg 1-09 TABLET BY ity of tablet 00:00: MOUTH [place] 00 THREE Medical TIMES Branch DAILY HYDROCHLORO 3-0 Yes [id number] 12.5mg TAKE 1 Univers THIAZIDE 1-09 CAPSULE BY ity o f 12.5 mg 00:00: MOUTH [place] capsule 00 DAILY Medical Branch LISINOPRIL 3-0 Yes [id number] TAKE 1/2 Univers 40 mg 1-09 TABLET BY ity of tablet 00:00: MOUTH [place] 00 TWICE Medical DAILY Branch HYDRALAZINE 3-0 Yes [id number] TAKE 1 Univers 100 mg 1-09 TABLET BY ity of tablet 00:00: MOUTH [place] 00 THREE Medical TIMES Branch DAILY HYDROCHLORO 3-0 Yes [id number] 12.5mg TAKE 1 Univers THIAZIDE 1-09 CAPSULE BY ity o f 12.5 mg 00:00: MOUTH [place] capsule 00 DAILY Medical Branch LISINOPRIL 3-0 Yes [id number] TAKE 1/2 Univers 40 mg 1-09 TABLET BY ity of tablet 00:00: MOUTH [place] 00 TWICE Medical DAILY Branch HYDRALAZINE 3-0 Yes [id number] TAKE 1 Univers 100 mg 1-09 TABLET BY ity of tablet 00:00: MOUTH [place] 00 THREE Medical TIMES Branch DAILY HYDROCHLORO 3-0 Yes [id number] 12.5mg TAKE 1 Univers THIAZIDE 1-09 CAPSULE BY ity o f 12.5 mg 00:00: MOUTH [place] capsule 00 DAILY Medical Branch LISINOPRIL 2023-0 Yes [id number] TAKE 1/2 Univers 40 mg 1-09 TABLET BY ity of tablet 00:00: MOUTH [place] 00 TWICE Medical DAILY Branch HYDRALAZINE 2023-0 Yes [id number] TAKE 1 [facility] 100 mg 1-09 TABLET BY ity of tablet 00:00: MOUTH [place] 00 THREE Medical TIMES Branch DAILY HYDROCHLORO 2023-0 Yes [id number] 12.5mg TAKE 1 Univers THIAZIDE 1-09 CAPSULE BY ity o f 12.5 mg 00:00: MOUTH [place] capsule 00 DAILY Medical Branch LISINOPRIL 2023-0 Yes [id number] TAKE 1/2 Univers 40 mg 1-09 TABLET BY ity of tablet 00:00: MOUTH [place] 00 TWICE Medical DAILY Branch HYDRALAZINE 2023-0 Yes [id number] TAKE 1 Univers 100 mg 1-09 TABLET BY ity of tablet 00:00: MOUTH [place] 00 THREE Medical TIMES Branch DAILY HYDROCHLORO 2023-0 Yes [id number] 12.5mg TAKE 1 Univers THIAZIDE 1-09 CAPSULE BY ity o f 12.5 mg 00:00: MOUTH [place] capsule 00 DAILY Medical Branch LISINOPRIL 3-0 Yes [id number] TAKE 1/2 Univers 40 mg 1-09 TABLET BY ity of tablet 00:00: MOUTH [place] 00 TWICE Medical DAILY Branch HYDRALAZINE 3-0 Yes [id number] TAKE 1 Univers 100 mg 1-09 TABLET BY ity of tablet 00:00: MOUTH [place] 00 THREE Medical TIMES Branch DAILY HYDROCHLORO 3-0 Yes [id number] 12.5mg TAKE 1 Univers THIAZIDE 1-09 CAPSULE BY ity o f 12.5 mg 00:00: MOUTH [place] capsule 00 DAILY Medical Branch LISINOPRIL 2023-0 Yes [id number] TAKE 1/2 Univers 40 mg 1-09 TABLET BY ity of tablet 00:00: MOUTH [place] 00 TWICE Medical DAILY Branch HYDRALAZINE 3-0 Yes [id number] TAKE 1 Univers 100 mg 1-09 TABLET BY ity of tablet 00:00: MOUTH [place] 00 THREE Medical TIMES Branch DAILY HYDROCHLORO 2023-0 Yes [id number] 12.5mg TAKE 1 Univers THIAZIDE 1-09 CAPSULE BY ity o f 12.5 mg 00:00: MOUTH [place] capsule 00 DAILY Medical Branch LISINOPRIL 2023-0 Yes [id number] TAKE 1/2 Univers 40 mg 1-09 TABLET BY ity of tablet 00:00: MOUTH [place] 00 TWICE Medical DAILY Branch HYDRALAZINE 2023-0 Yes [id number] TAKE 1 Univers 100 mg 1-09 TABLET BY ity of tablet 00:00: MOUTH [place] 00 THREE Medical TIMES Branch DAILY HYDROCHLORO 2023-0 Yes [id number] 12.5mg TAKE 1 Univers THIAZIDE 1-09 CAPSULE BY ity o f 12.5 mg 00:00: MOUTH [place] capsule 00 DAILY Medical Branch LISINOPRIL 2023-0 Yes [id number] TAKE 1/2 Univers 40 mg - TABLET BY ity of tablet 00:00: MOUTH TWICE Medical DAILY Branch HYDRALAZINE Yes [id number] TAKE 1 Univers 100 mg - TABLET BY ity of tablet 00:00: MOUTH [place] THREE Medical TIMES Branch DAILY hydroCHLORO 2022- No 12.5mg 1 capsule [facility] thiazide 11-09 (12.5 mg) ity o f (MICROZIDE) 00:00: 00:00 [place] 12.5 mg 00 :00 morning. MD restrepo [facility] hydroCHLORO 2022- No 12.5mg 1 capsule [facility] thiazide 11-09 (12.5 mg) ity o f (MICROZIDE) 00:00: 00:00 [place] 12.5 mg 00 :00 morning. MD restrepo [facility] hydroCHLORO 2022- No 12.5mg 1 capsule [facility] thiazide 11-09 (12.5 mg) ity o f (MICROZIDE) 00:00[place] 12.5 mg 00 :00 morning. MD restrepo [facility] hydroCHLORO 2022- No 12.5mg 1 capsule [facility] thiazide 11-09 (12.5 mg) ity o f (MICROZIDE) 00:00[place] 12.5 mg 00 :00 morning. MD restrepo [facility] hydroCHLORO 2022- No 12.5mg 1 capsule [facility] thiazide 11-09 (12.5 mg) ity o f (MICROZIDE) 00:00: [place] 12.5 mg 00 :00 morning. MD restrepo [facility] hydroCHLORO 2022- No 12.5mg 1 capsule [facility] thiazide 11-09 (12.5 mg) ity o f (MICROZIDE) 00:00: [place] 12.5 mg 00 :00 morning. MD restrepo [facility] hydroCHLORO 2022- No 12.5mg 1 capsule [facility] thiazide 11-09 (12.5 mg) ity o f (MICROZIDE) 00:00: [place] 12.5 mg 00 :00 morning. MD capsule [facility] cloNIDine 2022- No TAKE 1 Unive rs HCl 11-0920 TABLET BY ity of (CATAPRES) 00:00: 00:00 MOUTH [place] 0.2 mg 00 :00 THREE MD tablet TIMES [facility] cloNIDine 2022- No TAKE 1 Unive rs HCl 11-09-20 TABLET BY ity of (CATAPRES) 00:00: 00:00 MOUTH [place] 0.2 mg 00 :00 THREE MD tablet TIMES [facility] cloNIDine 2022- No TAKE 1 Unive rs HCl 11-0920 TABLET BY ity of (CATAPRES) 00:00: 00:00 MOUTH [place] 0.2 mg 00 :00 THREE MD tablet TIMES [facility] cloNIDine 2022- No TAKE 1 Unive rs HCl 11-0920 TABLET BY ity of (CATAPRES) 00:00: 00:00 MOUTH [place] 0.2 mg 00 :00 THREE MD tablet TIMES [facility] cloNIDine 2022- No TAKE 1 Unive rs HCl 11-0920 TABLET BY ity of (CATAPRES) 00:00: 00:00 MOUTH [place] 0.2 mg 00 :00 THREE MD tablet TIMES [facility] cloNIDine 2022- No TAKE 1 Unive rs HCl 11-0920 TABLET BY ity of (CATAPRES) 00:00: 00:00 MOUTH [place] 0.2 mg 00 :00 THREE MD tablet TIMES [facility] cloNIDine 2022- No TAKE 1 Unive rs HCl 11-09-20 TABLET BY ity of (CATAPRES) 00:00: 00:00 MOUTH [place] 0.2 mg 00 :00 THREE MD tablet TIMES [facility] hydrocortis 2022- No UNWRAP AND Univers one 11-06 INSERT ONE ity of (ANUSOL-HC) 00:00: 00:00 (1) [place] 25 mg 00 :00 SUPPOSITOR MD suppository Y IN THE [place] RECTUM n TWICE A Cancer DAY. [place] hydrocortis 2022- No UNWRAP AND Univers one 11-06 INSERT ONE ity of (ANUSOL-HC) 00:00: 00:00 (1) [place] 25 mg 00 :00 SUPPOSITOR MD suppository Y IN THE [place] RECTUM n TWICE A Cancer DAY. [place] hydrocortis 2022- No UNWRAP AND Univers one 11-06 INSERT ONE ity of (ANUSOL-HC) 00:00: 00:00 (1) [place] 25 mg 00 :00 SUPPOSITOR MD suppository Y IN THE [place] RECTUM n TWICE A Cancer DAY. [place] hydrocortis 2022- No UNWRAP AND Univers one 11-06 INSERT ONE ity of (ANUSOL-HC) 00:00: 00:00 (1) [place] 25 mg 00 :00 SUPPOSITOR MD suppository Y IN THE [place] RECTUM n TWICE A Cancer DAY. [place] hydrocortis 2022- No UNWRAP AND Univers one 11-06 INSERT ONE ity of (ANUSOL-HC) 00:00: 00:00 (1) [place] 25 mg 00 :00 SUPPOSITOR MD suppository Y IN THE [place] RECTUM n TWICE A Cancer DAY. [place] hydrocortis 2022- No UNWRAP AND Univers one 11-06 INSERT ONE ity of (ANUSOL-HC) 00:00: 00:00 (1) [place] 25 mg 00 :00 SUPPOSITOR MD suppository Y IN THE [place] RECTUM n TWICE A Cancer DAY. [place] hydrocortis 2022- No UNWRAP AND Univers one 11-06 INSERT ONE ity of (ANUSOL-HC) 00:00: 00:00 (1) [place] 25 mg 00 :00 SUPPOSITOR MD suppository Y IN THE [place] RECTUM n TWICE A Cancer DAY. [place] METOPROLOL Yes TAKE 1 Unive rs TARTRATE [...] No TAKE 1 Univ ers TARTRATE 1-03 - TABLET BY ity o f 100 mg 00:00: 00:00 MOUTH [place] tablet 00 :00 TWICE Medical DAILY Branch metoprolol 2022- No TAKE 1 Univ ers tartrate 1-03 - TABLET BY ity o f (LOPRESSOR) 00:00: 00:00 [place] 100 mg 00 :00 TWICE MD tablet DAILY [facility] metoprolol 2022- No TAKE 1 Univ ers tartrate 1-03 12-15 TABLET BY ity o f (LOPRESSOR) 00:00: 00:00 [place]TH [place] 100 mg 00 :00 TWICE MD tablet DAILY [facility] metoprolol 2022- No TAKE 1 Univ ers tartrate 1-03 - TABLET BY ity o f (LOPRESSOR) 00:00: 00:00 [place]TH [place] 100 mg 00 :00 TWICE MD tablet DAILY [facility] metoprolol 2022- No TAKE 1 Univ ers tartrate 1-03 02-14 TABLET BY ity o f (LOPRESSOR) 00:00: 00:00 [place]TH [place] 100 mg 00 :00 TWICE MD tablet DAILY [facility] metoprolol 2022- No TAKE 1 Univ ers tartrate 11-03 TABLET BY ity o f (LOPRESSOR) 00:00: 00:00 [place]TH [place] 100 mg 00 :00 TWICE MD tablet DAILY [facility] metoprolol 2022- No TAKE 1 Univ ers tartrate 11-03 TABLET BY ity o f (LOPRESSOR) 00:00: 00:00 [place]TH [place] 100 mg 00 :00 TWICE MD tablet DAILY [facility] metoprolol 2022- No TAKE 1 Univ ers tartrate 11-03 TABLET BY ity o f (LOPRESSOR) 00:00: 00:00 MOUTH [place] 100 mg 00 :00 TWICE MD tablet DAILY [facility] METOPROLOL 2022- No TAKE 1 Univ ers TARTRATE 11-03 TABLET BY ity o f 100 mg 00:00: 00:00 MOUTH [place] tablet 00 :00 TWICE Medical DAILY Branch cetirizine 2021-11- No TAKE 1 Univ ers (ZyrTEC) 10 01-12 TABLET BY it y of mg tablet 00:00: 00:00 [place]CE [place] :00 DAILY MD NEEDED FOR [facility] ALLERGIES [facility] cetirizine 2021-11- No TAKE 1 Univ ers (ZyrTEC) 10 01-12 TABLET BY it y of mg tablet 00:00: 00:00 M[place]TH [place]CE [place] 00 :00 DAILY MD NEEDED FOR [facility] ALLERGIES [facility] [place] cetirizine 2021-11- No TAKE 1 Univ ers (ZyrTEC) 10 01-12 TABLET BY it y of mg tablet 00:00: 00:00 MOUTH [place]CE [place] 00 :00 DAILY MD NEEDED FOR [facility] ALLERGIES [facility] [place] cetirizine 2021-11- No TAKE 1 Univ ers (ZyrTEC) 10 01-12 TABLET BY it y of mg tablet 00:00: 00:00 MOUTH [place]CE [place] 00 :00 DAILY MD NEEDED FOR [facility] cetirizine 2021-11- No TAKE 1 [facility]) 10 01-12 TABLET BY it y of mg tablet 00:00: 00:00 MOUTH [place]CE [place] 00 :00 DAILY MD NEEDED FOR [facility] cetirizine 2021-11- No TAKE 1 [facility] 10 01-12 TABLET BY it y of mg tablet 00:00: 00:00 MOUTH [place]CE [place] 00 :00 DAILY MD NEEDED FOR [facility] cetirizine 2021-11- No TAKE 1 [facility]) 10 01-12 TABLET BY it y of mg tablet 00:00: 00:00 MOUTH [place]CE [place] 00 :00 DAILY MD NEEDED FOR [facility] ALLERGIES [facility] gabapentin 2021-11 Yes [id number] 600mg Take 1 [facility] 600 mg 2-21 tablet by ity of tablet 00:00: mouth in [place] 00 the Medical morning Branch and 1 tablet at noon and 1 tablet in the evening. HYDROcodone 2021-11 Yes [id number] 1{tbl} Take 1 Un ally -acetaminop 2-21 tablet by ity of hen 7.5-325 00:00: mouth [place] mg per 00 every 6 Medical tablet (six) Branch hours as needed for Pain. Indication s: chronic pain Diclofenac 2021-11 Yes [id number] Apply to Univers Sodium 1 % 2-21 area(s) 3 ity of gel 00:00: (three) [place] 00 times Medical daily. Branch gabapentin 2021-11 Yes [id number] 600mg Take 1 [facility] 600 mg 2-21 tablet by ity of tablet 00:00: mouth in [place] 00 the Medical morning Branch and 1 tablet at noon and 1 tablet in the evening. HYDROcodone 2021-11 Yes [id number] 1{tbl} Take 1 Un ally -acetaminop 2-21 tablet by ity of hen 7.5-325 00:00: mouth [place] mg per 00 every 6 Medical tablet (six) Branch hours as needed for Pain. Indication s: chronic pain Diclofenac 2021-11 Yes [id number] Apply to Univers Sodium 1 % 2-21 area(s) 3 ity of gel 00:00: (three) [place] 00 times Medical daily. Branch gabapentin 2021-11 Yes [id number] 600mg Take 1 [facility] 600 mg 2-21 tablet by ity of tablet 00:00: mouth in [place] 00 the Medical morning Branch and 1 tablet at noon and 1 tablet in the evening. HYDROcodone 2021-11 Yes [id number] 1{tbl} Take 1 Un ally -acetaminop 2-21 tablet by ity of hen 7.5-325 00:00: mouth [place] mg per 00 every 6 Medical tablet (six) Branch hours as needed for Pain. Indication s: chronic pain Diclofenac 2021-11 Yes [id number] Apply to Univers Sodium 1 % 2-21 area(s) 3 ity of gel 00:00: (three) [place] 00 times Medical daily. Branch gabapentin 2021-11 Yes [id number] 600mg Take 1 [facility] 600 mg 2-21 tablet by ity of tablet 00:00: mouth in [place] the Medical morning Branch and 1 tablet at noon and 1 tablet in the evening. HYDROcodone 2021-11 Yes [id number] 1{tbl} Take 1 Un ally -acetaminop 2-21 tablet by ity of hen 7.5-325 00:00: mouth [place] mg per 00 every 6 Medical tablet (six) Branch hours as needed for Pain. Indication s: chronic pain Diclofenac 2021-11 Yes [id number] Apply to Univers Sodium 1 % 2-21 area(s) 3 ity of gel 00:00: (three) [place] 00 times Medical daily. Branch gabapentin 2021-11 Yes [id number] 600mg Take 1 [facility] 600 mg 2-21 tablet by ity of tablet 00:00: mouth in [place] [address] the Medical morning Branch and 1 tablet at noon and 1 tablet in the evening. HYDROcodone 2021-11 Yes [id number] 1{tbl} Take 1 Un ally -acetaminop 2-21 tablet by ity of hen 7.5-325 00:00: mouth [place] mg per 00 every 6 Medical tablet (six) Branch hours as needed for Pain. Indication s: chronic pain Diclofenac 2021-11 Yes [id number] Apply to Univers Sodium 1 % 2-21 area(s) 3 ity of gel 00:00: (three) [place] 00 times Medical daily. Branch gabapentin 2021-11 Yes [id number] 600mg Take 1 [facility] 600 mg 2-21 tablet by ity of tablet 00:00: mouth in [place] 00 the Medical morning Branch and 1 tablet at noon and 1 tablet in the evening. HYDROcodone 2021-11 Yes [id number] 1{tbl} Take 1 Un ally -acetaminop 2-21 tablet by ity of hen 7.5-325 00:00: mouth [place] mg per 00 every 6 Medical tablet (six) Branch hours as needed for Pain. Indication s: chronic pain Diclofenac 2021-11 Yes [id number] Apply to Univers Sodium 1 % 2-21 area(s) 3 ity of gel 00:00: (three) [place] 00 times Medical daily. Branch gabapentin 2021-11 Yes [id number] 600mg Take 1 [facility] 600 mg 2-21 tablet by ity of tablet 00:00: mouth in [place] [address] the Medical morning Branch and 1 tablet at noon and 1 tablet in the evening. Diclofenac 2021-11 Yes [id number] Apply to Univers Sodium 1 % 2-21 area(s) 3 ity of gel 00:00: (three) [place] 00 times Medical daily. Branch gabapentin 2021-11 Yes [id number] 600mg Take 1 [facility] 600 mg 2-21 tablet by ity of tablet 00:00: mouth in [place] [address] the Medical morning Branch and 1 tablet at noon and 1 tablet in the evening. Diclofenac 2021-11 Yes [id number] Apply to Univers Sodium 1 % 2-21 area(s) 3 ity of gel 00:00: (three) [place] 00 times Medical daily. Branch gabapentin 2021-11 Yes [id number] 600mg Take 1 [facility] 600 mg 2-21 tablet by ity of tablet 00:00: mouth in [place] [address] the Medical morning Branch and 1 tablet at noon and 1 tablet in the evening. Diclofenac 2021-11 Yes [id number] Apply to Univers Sodium 1 % 2-21 area(s) 3 ity of gel 00:00: (three) [place] 00 times Medical daily. Branch gabapentin 2021-11 Yes [id number] 600mg Take 1 [facility] 600 mg 2-21 tablet by ity of tablet 00:00: mouth in [place] [address] the Medical morning Branch and 1 tablet at noon and 1 tablet in the evening. Diclofenac 2021-11 Yes [id number] Apply to Univers Sodium 1 % 2-21 area(s) 3 ity of gel 00:00: (three) [place] 00 times Medical daily. Branch gabapentin 2021-11 Yes [id number] 600mg Take 1 [facility] 600 mg 2-21 tablet by ity of tablet 00:00: mouth in [place] 00 the Medical morning Branch and 1 tablet at noon and 1 tablet in the evening. Diclofenac 2021- Yes [id number] Apply to Univers Sodium 1 % 2-21 area(s) 3 ity of gel 00:00: (three) [place] 00 times Medical daily. Branch gabapentin 2021-11 Yes [id number] 600mg Take 1 [facility] 600 mg 2-21 tablet by ity of tablet 00:00: mouth in [place] 00 the Medical morning Branch and 1 tablet at noon and 1 tablet in the evening. Diclofenac 2021- Yes [id number] Apply to Univers Sodium 1 % 2-21 area(s) 3 ity of gel 00:00: (three) [place] 00 times Medical daily. Branch gabapentin 2021-11 Yes [id number] 600mg Take 1 [facility] 600 mg 2-21 tablet by ity of tablet 00:00: mouth in [place] [address] the Medical morning Branch and 1 tablet at noon and 1 tablet in the evening. Diclofenac 2021- Yes [id number] Apply to Univers Sodium 1 % 2-21 area(s) 3 ity of gel 00:00: (three) [place] 00 times Medical daily. Branch gabapentin 2021-11 Yes [id number] 600mg Take 1 [facility] 600 mg 2-21 tablet by ity of tablet 00:00: mouth in [place] 00 the Medical morning Branch and 1 tablet at noon and 1 tablet in the evening. Diclofenac 2021- Yes [id number] Apply to Univers Sodium 1 % 2-21 area(s) 3 ity of gel 00:00: (three) [place] 00 times Medical daily. Branch gabapentin 2021- Yes [id number] 600mg Take 1 [facility] 600 mg 2-21 tablet by ity of tablet 00:00: mouth in [place] 00 the Medical morning Branch and 1 tablet at noon and 1 tablet in the evening. Diclofenac 2021- Yes [id number] Apply to [facility] Sodium 1 % 2-21 area(s) 3 ity of gel 00:00: (three) [place] 00 times Medical daily. Branch gabapentin 2021-11 Yes [id number] 600mg Take 1 [facility] 600 mg 2-21 tablet by ity of tablet 00:00: mouth in [place] 00 the Medical morning Branch and 1 tablet at noon and 1 tablet in the evening. Diclofenac 2021-11 Yes [id number] Apply to Univers Sodium 1 % 2-21 [...] needed for Pain. Indication s: chronic pain [facility] 2021-11 Yes every 8 Univ ers (XANAX) 2 2-20 (eight) ity of mg tablet 00:00: [place] 00 needed for MD anxiety. [facility] 2021-11 Yes every 8 Univ ers (XANAX) 2 2-20 (eight) ity of mg tablet 00:00: hours [place] 00 needed for MD anxiety. [facility] 2021-11 Yes every 8 Univ ers (XANAX) 2 2-20 (eight) ity of mg tablet 00:00: hours [place] 00 needed for MD anxiety. [facility] 2021-11 Yes every 8 Univ ers (XANAX) 2 2-20 (eight) ity of mg tablet 00:00: hours as [place] 00 needed for MD anxiety. [facility] 2021-11 Yes every 8 Univ ers (XANAX) 2 2-20 (eight) ity of mg tablet 00:00: hours as [place] 00 needed for MD anxiety. [facility] 2021-11 Yes every 8 Univ ers (XANAX) 2 2-20 (eight) ity of mg tablet 00:00: hours as [place] 00 needed for MD anxiety. [facility] 2021-11 Yes every 8 Univ ers (XANAX) 2 2-20 (eight) ity of mg tablet 00:00: hours as [place] 00 needed for MD anxiety. [facility] albuterol 2021-11 Yes every 6 Unive rs (VENTOLIN 2-19 (six) ity of HFA,PROAIR 00:00: hours as [place] as HFA) 90 00 needed. [facility] albuterol 2021-11 Yes every 6 Unive rs (VENTOLIN 2-19 (six) ity of HFA,PROAIR 00:00: hours as [place] as HFA) 90 00 needed. MD mcg/puff [facility] inhaler [facility] albuterol 2021-11 Yes every 6 Unive rs (VENTOLIN 2-19 (six) ity of HFA,PROAIR 00:00: hours as [place] HFA) 90 00 needed. mcg/puff [facility] inhaler n [facility] albuterol 2021-11 Yes every 6 Unive rs (VENTOLIN 2-19 (six) ity of HFA,PROAIR 00:00: hours as [place] as HFA) 90 00 needed. mcg/puff [facility] inhaler n [facility] albuterol 2021-11 Yes every 6 Unive rs (VENTOLIN 2-19 (six) ity of HFA,PROAIR 00:00: hours as [place] as HFA) 90 00 needed. mcg/puff [facility] inhaler n [facility] albuterol 2021-11 Yes every 6 Unive rs (VENTOLIN 2-19 (six) ity of HFA,PROAIR 00:00: hours as [place] as HFA) 90 00 needed. mcg/puff [facility] inhaler n [facility] albuterol 2021-11 Yes every 6 Unive rs (VENTOLIN 2-19 (six) ity of HFA,PROAIR 00:00: hours as [place] HFA) 90 00 needed. MD moss/puff [facility] inhaler [facility] spironolact 2021-11- No TAKE 1 Uni vers one -20 12-14 TABLET BY ity of (ALDACTONE) 00:00: 00:[place]TH [place] 25 [place] 00 :00 EVERY DAY tablet Liane [facility] spironolact 2021-11- No TAKE 1 Uni vers one -20 12-14 TABLET BY ity of (ALDACTONE) 00:00: 00:[place] M[place]TH [place] 25 mg 00 :00 EVERY DAY tablet Liane [facility] spironolact 2021-11- No TAKE 1 Uni vers one -20 12-14 TABLET BY ity of (ALDACTONE) 00:00: 00:[place] MOUTH [place] 25 mg 00 :00 EVERY DAY tablet Liane [facility] spironolact 2021-11- No TAKE 1 Uni vers one -20 12-14 TABLET BY ity of (ALDACTONE) 00:00: 00:[place]TH [place] 25 mg 00 :00 EVERY DAY MD tablet [facility] [place] [facility] [facility] 2021-11- No TAKE 1 Uni vers one 2-19 -14 TABLET BY ity of (ALDACTONE) 00:00: 00:[place] M[place]TH [place] 25 mg 00 :00 EVERY DAY MD tablet [facility] [place] [facility] 2021-11- No TAKE 1 Uni vers one 2-19 -14 TABLET BY ity of (ALDACTONE) 00:00: 00:[place] M[place]TH [place] 25 [place] 00 :00 EVERY DAY MD tablet [facility] [place] [facility] 2021-11- No TAKE 1 Uni vers one -19 -14 TABLET BY ity of (ALDACTONE) 00:00: 00:[place] M[place]TH [place] 25 [place] 00 :00 EVERY DAY MD tablet [facility] [place] zolpide 2021-11 Yes TAKE 1 Univers (AMBIEN) 10 2-17 TABLET BY ity of mg tablet 00:00: [place]TH [place] 00 BEDTIME MD NEEDED FOR [facility] INSOMNIA n [facility] [place] zolpide 2021-11 Yes TAKE 1 [facility] (AMBIEN) 10 2-17 TABLET BY ity of mg tablet 00:00: [place]TH [place] 00 BEDTIME MD NEEDED FOR [facility] INSOMNIA n [facility] [place] zolpide 2021-11 Yes TAKE 1 [facility] (AMBIEN) 10 2-17 TABLET BY ity of mg tablet 00:00: M[place]TH [place] 00 BEDTIME MD NEEDED FOR [facility] INSOMNIA n [facility] [place] zolpide 2021-11 Yes TAKE 1 [facility] (AMBIEN) 10 2-17 TABLET BY ity of mg tablet 00:00: MOUTH [place] 00 BEDTIME MD NEEDED FOR [facility] INSOMNIA n [facility] [place] zolpidem 2021-11 Yes TAKE 1 [facility] (AMBIEN) 10 2-17 TABLET BY ity of mg tablet 00:00: M[place]TH [place] 00 BEDTIME MD NEEDED FOR [facility] INSOMNIA n [facility] [place] zolpidem 2021-11 Yes TAKE 1 [facility] (AMBIEN) 10 2-17 TABLET BY ity of mg tablet 00:00: M[place]TH [place] 00 BEDTIME MD NEEDED FOR [facility] INSOMNIA n [facility] [place] zolpidem 2021-11 Yes TAKE 1 [facility] (AMBIEN) 10 2-17 TABLET BY ity of mg tablet 00:00: [place]TH [place] 00 BEDTIME MD NEEDED FOR [facility] INSOMNIA [facility] ondansetron 2021-11 Yes DISSOLVE 1 Univers 4 [...] tablet 00:00: MOUTH [place] 00 EVERY DAY [facility] pantoprazol 2021-11 Yes TAKE 1 Univ ers e 2-13 TABLET BY ity of (PROTONIX) 00:00: MOUTH [place] 40 mg EC 00 DAILY [address] [facility] amLODIPine 2021-11 Yes TAKE 1 Unive rs (NORVASC) 5 2-13 TABLET BY ity of mg tablet 00:00: MOUTH [place] 00 EVERY DAY [facility] pantoprazol 2021-11 Yes TAKE 1 Univ ers e 2-13 TABLET BY ity of (PROTONIX) 00:00: MOUTH [place] 40 mg EC 00 DAILY [address] [facility] amLODIPine 2021-11 Yes TAKE 1 Unive rs (NORVASC) 5 2-13 TABLET BY ity of mg tablet 00:00: MOUTH [place] 00 EVERY DAY [facility] pantoprazol 2021-11 Yes TAKE 1 Univ ers e 2-13 TABLET BY ity of (PROTONIX) 00:00: MOUTH [place] 40 mg EC 00 DAILY [address] [facility] amLODIPine 2021-11 Yes TAKE 1 Unive rs (NORVASC) 5 2-13 TABLET BY ity of mg tablet 00:00: MOUTH [place] 00 EVERY DAY [facility] pantoprazol 2021-11 Yes TAKE 1 Univ ers e 2-13 TABLET BY ity of (PROTONIX) 00:00: MOUTH [place] 40 mg EC 00 DAILY MD tablet [facility] amLODIPine 2021-11 Yes TAKE 1 Unive rs (NORVASC) 5 2-13 TABLET BY ity of mg tablet 00:00: MOUTH [place] 00 EVERY DAY [facility] pantoprazol 2021-11 Yes TAKE 1 Univ ers e 2-13 TABLET BY ity of (PROTONIX) 00:00: MOUTH [place] 40 mg EC 00 DAILY [address] [facility] amLODIPine 2021-11 Yes TAKE 1 Unive rs (NORVASC) 5 2-13 TABLET BY ity of mg tablet 00:00: MOUTH [place] 00 EVERY DAY [facility] pantoprazol 2021-11 Yes TAKE 1 Univ ers e 2-13 TABLET BY ity of (PROTONIX) 00:00: MOUTH [place] 40 mg EC 00 DAILY [address] [facility] amLODIPine 2021-11 Yes TAKE 1 Unive rs (NORVASC) 5 2-13 TABLET BY ity of mg tablet 00:00: MOUTH [place] 00 EVERY DAY [facility] pantoprazol 2021-11 Yes TAKE 1 Univ ers e 2-13 TABLET BY ity of (PROTONIX) 00:00: MOUTH [place] 40 mg EC 00 DAILY MD tablet [facility] dicyclomine 2021-11- No TAKE 1 Uni vers (BENTYL) 10 2-12 03-20 CAPSULE BY i ty of mg capsule 00:00: 00:00 MOUTH [place] 00 :00 EVERY 8 MD HOURS [facility] dicyclomine 2021-11- No TAKE 1 Uni vers (BENTYL) 10 2-12 03-20 CAPSULE BY i ty of mg capsule 00:00: 00:00 MOUTH [place] 00 :00 EVERY 8 MD HOURS [facility] dicyclomine 2021-11- No TAKE 1 Uni vers (BENTYL) 10 2-12 03-20 CAPSULE BY i ty of mg capsule 00:00: 00:00 MOUTH [place] 00 :00 EVERY 8 MD HOURS [facility] dicyclomine 2021-11- No TAKE 1 Uni vers (BENTYL) 10 -10 03-20 CAPSULE BY i ty of mg capsule 00:00: 00:00 MOUTH [place] 00 :00 EVERY 8 MD HOURS [facility] dicyclomine 2021-11- No TAKE 1 Uni vers (BENTYL) 10 -10 03-20 CAPSULE BY i ty of mg capsule 00:00: 00:00 MOUTH [place] 00 :00 EVERY 8 MD HOURS [facility] dicyclomine 2021-11- No TAKE 1 Uni vers (BENTYL) 10 12-13-20 CAPSULE BY i ty of mg capsule 00:00: 00:00 MOUTH [place] 00 :00 EVERY 8 MD HOURS [facility] dicyclomine 2021-11- No TAKE 1 Uni vers (BENTYL) 10 12-13-20 CAPSULE BY i ty of mg capsule 00:00: 00:00 MOUTH [place] 00 :00 EVERY 8 MD HOURS [facility] BD DEVORAH 2021-11 Yes 10mg Take 10 mg Univers GEN PEN 2-05 by mouth. ity of NEEDLE 32 00:00: [place] gauge x 00 Medical " [place] [facility] BD DEVORAH 2021-11 Yes 10mg Take 10 mg [facility] GEN PEN 2-05 by mouth. ity of NEEDLE 32 00:00: [place] gauge x 00 Medical /" [place] [facility] BD DEVORAH 2021-11 Yes 10mg Take 10 mg [facility] GEN PEN 2-05 by mouth. ity of NEEDLE 32 00:00: [place] gauge x 00 Medical /" [place] [facility] BD DEVORAH 2021-11 Yes 10mg Take 10 mg [facility] GEN PEN 2-05 by mouth. ity of NEEDLE 32 00:00: [place] gauge x 00 Medical /" [place] [facility] BD DEVORAH 2021-11 Yes 10mg Take 10 mg [facility] GEN PEN 2-05 by mouth. ity of NEEDLE 32 00:00: [place] gauge x 00 Medical /" [place] [facility] BD DEVORAH 2021-11 Yes 10mg [...] x 00 Medical " [place] [facility] BD Devorah 2021-11- No USE Uni vers Gen Pen 2-05 -14 DIRECTED. ity of Needle 32 00:00: 00:00 [place] gauge x 00 :00 [place] " ndle [facility] BD Devorah 2021-11- No USE Uni vers Gen Pen 12-06 DIRECTED. ity of Needle 32 00:00: 00:00 [place] gauge x 00 :00 MD Mg/Paz" [facility] BD Devorah 2021-11- No USE Uni vers Gen Pen 12-06 DIRECTED. ity of Needle 32 00:00: 00:00 [place] gauge x 00 :00 MD Mg/Paz" [facility] BD [place]or[place] 2021-11- No USE Uni vers Gen Pen 12-06 DIRECTED. ity of Needle 32 00:00: 00:00 [place] gauge x 00 :00 MD Mg/Paz"[facility] BD Devorah 2021-11- No USE Uni vers Gen Pen 12-06 DIRECTED. ity of Needle 32 00:00: 00:00 [place] gauge x 00 :00 MD Mg/Paz" [facility] BD [place]or[place] 2021-11- No USE Uni vers Gen Pen 12-06 DIRECTED. ity of Needle 32 00:00: 00:00 [place] gauge x 00 :00 MD Mg/Paz" [facility] BD Devorah 2021-11- No USE Uni vers Gen Pen 12-06 DIRECTED. ity of Needle 32 00:00: 00:00 [place] gauge x 00 :00 MD Mg/Paz"[facility] LISINOPRIL 2021-11 Yes [id number] TAKE 1/2 Univers 40 mg 2-02 TABLET BY ity of tablet 00:00: MOUTH [place] 00 TWICE Medical DAILY Branch LISINOPRIL 2021-11 Yes [id number] TAKE 1/2 [facility] 40 mg 2-02 TABLET BY ity of tablet 00:00: MOUTH [place] 00 TWICE Medical DAILY Branch LISINOPRIL 2021-11 Yes [id number] TAKE 1/2 [facility] 40 mg 2-02 TABLET BY ity of tablet 00:00: MOUTH [place] 00 TWICE Medical DAILY Branch LISINOPRIL 2021-11 Yes [id number] TAKE 1/2 [facility] 40 mg 2-02 TABLET BY ity of tablet 00:00: MOUTH [place] 00 TWICE Medical DAILY Branch LISINOPRIL 2021-11 Yes [id number] TAKE 1/2 [facility] 40 mg 2-02 TABLET BY ity of tablet 00:00: MOUTH [place] 00 TWICE Medical DAILY Branch LISINOPRIL 2021-11- No [id number] TAKE 1/2 Univers 40 mg 2-12 02- TABLET BY ity of tablet 00:00: 00:00 MOUTH [place] 00 :00 TWICE Medical DAILY Branch hydrALAZINE 2021-11- No TAKE 1 Uni vers (APRESOLINE 12-02 TABLET BY it y of ) 100 mg 00:00: 00:00 MOUTH [place] tablet 00 :00 THREE MD TIMES Anderso DAILY n [facility] Victoza 2021-11- No ADMINISTER Uni vers 2-Patrick 0.6 12-02 1.8 MG ity of mg/0.1 mL 00:00: 00:00 [place]ER [place] (18 mg/3 00 :00 SKIN EVERY MD mL) pnij DAY Anderso injection [facility] lisinopril 2021-11- No TAKE 1/2 Un ally (PRINIVIL,Z 12-02 TABLET BY it y of ESTRIL) 40 00:00: 00:00 MOUTH [place] mg tablet 00 :00 [facility] USE TWICE Univ ers syringe-nee 12-02 DAILY WITH i ty of dle U-100 1 00:00: 00:00 MEALS. [place] mL 31 gauge 00 :00 x 03/16 [facility]-11- No TAKE 1 Uni vers (APRESOLINE 12-02 TABLET BY it y of ) 100 mg 00:00: 00:00 MOUTH [place] tablet 00 :00 THREE MD TIMES Anderso DAILY n [facility] Victoza 2021-11- No ADMINISTER Uni vers 2-Patirck 0.6 12-02 1.8 MG ity of mg/0.1 mL 00:00: 00:[place] ([place] mg/3 00 :00 SKIN EVERY MD mL) pnij DAY Anderso injection [facility] lisinopril 2021-11- No TAKE 1/2 Un ally (PRINIVIL,Z 12-02 TABLET BY it y of ESTRIL) 40 00:00: 00:00 MOUTH [place] mg tablet 00 :00 [facility]ICE [facility]- No USE TWICE Univ ers syringe-nee 12-02 DAILY WITH i ty of dle U-100 1 00:00: 00:00 MEALS. [place] mL 31 gauge 00 :00 MD x 5/[address] [facility] hydrALAZINE 2021-11- No TAKE 1 Uni vers (APRESOLINE 12-02 TABLET BY it y of ) 100 mg 00:00: 00:00 MOUTH [place] tablet 00 :00 THREE MD TIMES Anderso DAILY [facility] Victoza 2021-11- No ADMINISTER Uni vers 2-Patrick 0.6 12-02 1.8 MG ity of mg/0.1 mL 00:00: 00:[place] ([place] mg/3 00 :00 SKIN EVERY MD mL) pnij DAY Anderso injection [facility] lisinopril 2021-11- No TAKE 1/2 Un ally (PRINIVIL,Z 12-02 TABLET BY it y of ESTRIL) 40 00:00: 00:00 MOUTH [place] mg tablet 00 :00 TWICE MD DAILY [facility] insulin 2021-11- No USE TWICE Univ ers syringe-nee 12-02 DAILY WITH i ty of dle U-100 1 00:00: 00:00 MEALS. [place] mL 31 gauge 00 :00 MD x 03/[address] [facility] hydrALAZINE 2021-11- No TAKE 1 Uni vers (APRESOLINE 12-02 TABLET BY it y of ) 100 mg 00:00: 00:00 MOUTH [place] tablet 00 :00 THREE MD TIMES Anderso DAILY n [facility] Victoza 2021-11- No ADMINISTER Uni vers 2-Patrick 0.6 12-02 1.8 MG ity of mg/0.1 mL 00:00: 00:[place] ([place] mg/3 00 :00 SKIN EVERY MD mL) pnij DAY Anderso injection [facility] lisinopril 2021-11- No TAKE 1/2 Un ally (PRINIVIL,Z 12-02 TABLET BY it y of ESTRIL) 40 00:00: 00:00 MOUTH [place] mg tablet 00 :00 TWICE [facility] 2021-11- No USE TWICE Univ ers syringe-nee 12-02 DAILY WITH i ty of dle U-100 1 00:00: 00:00 MEALS. [place] mL 31 gauge 00 :00 MD x 03[facility]11- No TAKE 1 Uni vers (APRESOLINE 12-02 TABLET BY it y of ) 100 mg 00:00: 00:00 MOUTH [place] tablet 00 :00 THREE MD TIMES Anderso DAILY [facility] Victoza 2021-11- No ADMINISTER Uni vers 2-Patrick 0.6 12-02 1.8 MG ity of mg/0.1 mL 00:00: 00:00 [place] ([place] mg/3 00 :00 SKIN EVERY MD mL) pnij DAY Anderso injection [facility] lisinopril 2021-11- No TAKE 1/2 Un ally (PRINIVIL,Z 12-02 TABLET BY it y of ESTRIL) 40 00:00: 00:00 MOUTH [place] mg tablet 00 :00 TWICE MD DAILY [facility] insulin 2021-11- No USE TWICE Univ ers syringe-nee 12-02 DAILY WITH i ty of dle U-100 1 00:00: 00:00 MEALS. [place] mL 31 gauge 00 :00 x 03/16 [facility] 2021-11- No TAKE 1 Uni vers (APRESOLINE 12-02 TABLET BY it y of ) 100 mg 00:00: 00:00 MOUTH [place] tablet 00 :00 THREE MD TIMES Anderso DAILY [facility] Victoza 2021-11- No ADMINISTER Uni vers 2-Patrick 0.6 12-02 1.8 MG ity of mg/0.1 mL 00:00: 00:00 [place] ([place] mg/3 00 :00 SKIN EVERY MD mL) pnij DAY Anderso injection [facility] lisinopril 2021-11- No TAKE 1/2 Un ally (PRINIVIL,Z 12-02 TABLET BY it y of ESTRIL) 40 00:00: 00:00 MOUTH [place] mg tablet 00 :00 TWICE MD DAILY [facility] insulin 2021-11- No USE TWICE Univ ers syringe-nee 12-02 DAILY WITH i ty of dle U-100 1 00:00: 00:00 MEALS. [place] mL 31 gauge 00 :00 x [address] [facility] hydrALAZINE 2021-11- No TAKE 1 Uni vers (APRESOLINE 12-02 TABLET BY it y of ) 100 mg 00:00: 00:00 MOUTH [place] tablet 00 :[facility] ADMINISTER Uni vers 2-Patrick 0.6 12-02 1.8 MG ity of mg/0.1 mL 00:00: 00:00 [place] ([place] mg/3 00 :00 SKIN EVERY MD mL) pnij DAY Anders injection [facility] lisinopril 2021-11- No TAKE 1/2 Un ally (PRINIVIL,Z 12-02 TABLET BY it y of ESTRIL) 40 00:00: 00:00 MOUTH [place] mg tablet 00 :00 TWICE MD DAILY [facility] insulin 2021-11- No USE TWICE Univ ers syringe-nee 12-02 DAILY WITH i ty of dle U-100 1 00:00: 00:00 MEALS. [place] mL 31 gauge 00 :00 MD x [address] [facility] allopurinol 2021-11- No 100mg Take 100 [...] Indication s: chronic pain metFORMIN 2021-11 Yes [id number] 1000mg Take 1 Univers 1,000 mg 1-21 [...] Indication s: chronic pain metFORMIN 2021-11 Yes [id number] 1000mg Take 1 Univers 1,000 mg 1-21 [...] Indication s: chronic pain metFORMIN 2021-11 Yes [id number] 1000mg Take 1 Univers 1,000 mg 1-21 [...] Indication s: chronic pain metFORMIN 2021-11 Yes [id number] 1000mg Take 1 Univers 1,000 mg 1-21 tablet by ity of tablet 00:00: mouth in [place] [address] [facility] morning [place] and 1 tablet in the evening. Take with meals. metFORMIN 2021-11 Yes [id number] 1000mg Take 1 Univers 1,000 mg 1-21 tablet by ity of tablet 00:00: mouth in [place] [address] [facility] and 1 tablet in the evening. Take with meals. neomycin-po 2021-11 Yes INSTILL 4 U nivers lymyxin-hyd 1-21 DROPS TO ity of rocortisone 00:00: [place]FFECTED [place] otic 00 EAR FOUR Medical solution TIMES Branch DAILY metFORMIN 2021-11 Yes [id number] 1000mg Take 1 Univers 1,000 mg 1-21 tablet by ity of tablet 00:00: mouth in [address] and 1 tablet in the evening. Take with meals. neomycin-po 2021-11 Yes INSTILL 4 U nivers lymyxin-hyd 1-21 DROPS TO ity of rocortisone 00:00: AFFECTED [place] otic 00 EAR FOUR Medical solution TIMES Branch DAILY metFORMIN 2021-11 Yes [id number] 1000mg Take 1 Univers 1,000 mg 1-21 tablet by ity of tablet 00:00: mouth in [address] and 1 tablet in the evening. Take with meals. neomycin-po 2021-11 Yes INSTILL 4 U nivers lymyxin-hyd 1-21 DROPS TO ity of rocortisone 00:00: AFFECTED [place] otic 00 EAR FOUR Medical solution TIMES Branch DAILY metFORMIN 2021-11 Yes [id number] 1000mg Take 1 Univers 1,000 mg 1-21 tablet by ity of tablet 00:00: mouth in [address] and 1 tablet in the evening. Take with meals. neomycin-po 2021-11 Yes INSTILL 4 U nivers lymyxin-hyd 1-21 DROPS TO ity of rocortisone 00:00: [place]FFECTED [place] otic 00 EAR FOUR Medical solution TIMES Branch DAILY metFORMIN 2021-11 Yes [id number] 1000mg Take 1 Univers 1,000 mg 1-21 tablet by ity of tablet 00:00: mouth in [place] 00 the Medical morning Branch and 1 tablet in the evening. Take with meals. neomycin-po 2021-11 Yes INSTILL 4 U nivers lymyxin-hyd 1-21 DROPS TO ity of rocortisone 00:00: [place]FFECTED [place] otic 00 EAR FOUR Medical solution TIMES Branch DAILY metFORMIN 2021-11 Yes [id number] 1000mg Take 1 Univers 1,000 mg 1-21 tablet by ity of tablet 00:00: mouth in [address] morning [place] and 1 tablet in the evening. Take with meals. neomycin-po 2021-11 Yes INSTILL 4 U nivers lymyxin-hyd 1-21 DROPS TO ity of rocortisone 00:00: [place]FFECTED [place] otic 00 EAR FOUR Medical solution TIMES Branch DAILY metFORMIN 2021-11 Yes [id number] 1000mg Take 1 Univers 1,000 mg 1-21 tablet by ity of tablet 00:00: mouth in [address] morning [place] and 1 tablet in the evening. Take with meals. neomycin-po 2021-11 Yes INSTILL 4 U nivers lymyxin-hyd 1-21 DROPS TO ity of rocortisone 00:00: [place]FFECTED [place] otic 00 EAR FOUR Medical solution TIMES Branch DAILY metFORMIN 2021-11 Yes [id number] 1000mg Take 1 Univers 1,000 mg 1-21 tablet by ity of tablet 00:00: mouth in [address] morning [place] and 1 tablet in the evening. Take with meals. neomycin-po 2021-11 Yes INSTILL 4 U nivers lymyxin-hyd 1-21 DROPS TO ity of rocortisone 00:00: [place]ECT[place] otic 00 EAR FOUR Medical solution TIMES Branch DAILY metFORMIN 2021-11 Yes [id number] 1000mg Take 1 Univers 1,000 mg 1-21 tablet by ity of tablet 00:00: mouth in [address] morning [place] and 1 tablet in the evening. Take with meals. neomycin-po 2021-11 Yes INSTILL 4 U nivers lymyxin-hyd 1-21 DROPS TO ity of rocortisone 00:00: [place]FFECTED [place] otic 00 EAR FOUR Medical solution TIMES Branch DAILY metFORMIN 2021-11 Yes [id number] 1000mg Take 1 Univers 1,000 mg 1-21 tablet by ity of tablet 00:00: mouth in [address] morning [place] and 1 tablet in the evening. Take with meals. neomycin-po 2021-11 Yes INSTILL 4 U nivers lymyxin-hyd 1-21 DROPS TO ity of rocortisone 00:00: AFFECTED [place] otic 00 EAR FOUR Medical solution TIMES Branch DAILY metFORMIN 2021-11 Yes [id number] 1000mg Take 1 Univers 1,000 mg 1-21 tablet by ity of tablet 00:00: mouth in [place] [address] [facility] morning [place] and 1 tablet in the evening. Take with meals. neomycin-po 2021-11 Yes INSTILL 4 U nivers lymyxin-hyd 1-21 DROPS TO ity of rocortisone 00:00: AFFECTED [place] otic 00 EAR FOUR Medical solution TIMES Branch DAILY metFORMIN 2021-11 Yes [id number] 1000mg Take 1 Univers 1,000 mg 1-21 tablet by ity of tablet 00:00: mouth in [address] morning [place] and 1 tablet in the evening. Take with meals. neomycin-po 2021-11 Yes INSTILL 4 U nivers lymyxin-hyd 1-21 DROPS TO ity of rocortisone 00:00: [place]FFECTED [place] otic 00 EAR FOUR Medical solution TIMES Branch DAILY metFORMIN 2021-11 Yes [id number] 1000mg Take 1 Univers 1,000 mg 1-21 tablet by ity of tablet 00:00: mouth in [address] and 1 tablet in the evening. Take with meals. neomycin-po 2021-11 Yes INSTILL 4 U nivers lymyxin-hyd 1-21 DROPS TO ity of rocortisone 00:00: AFFECTED [place] otic 00 EAR FOUR Medical solution TIMES Branch DAILY metFORMIN 2021-11 Yes [id number] 1000mg Take 1 Univers 1,000 mg 1-21 tablet by ity of tablet 00:00: mouth in [address] and 1 tablet in the evening. Take with meals. neomycin-po 2021-11 Yes INSTILL 4 U nivers lymyxin-hyd 1-21 DROPS TO ity of rocortisone 00:00: AFFECTED [place] otic 00 EAR FOUR Medical solution TIMES Branch DAILY metFORMIN 2021-11 Yes [id number] 1000mg Take 1 Univers 1,000 mg 1-21 tablet by ity of tablet 00:00: mouth in [address] morning [place] and 1 tablet in the evening. Take with meals. neomycin-po 2021-11 Yes INSTILL 4 U nivers lymyxin-hyd 1-21 DROPS TO ity of rocortisone 00:00: AFFECTED [place] otic 00 EAR FOUR Medical solution TIMES Branch DAILY metFORMIN 2021-11 Yes [id number] 1000mg Take 1 Univers 1,000 mg 1-21 [...] tablet 00 :00 DAILY MD Liane olivier [facility] colchicine 2021-11- No TAKE 1 Univ ers (COLCRYS) 11-21 03-20 TABLET BY ity of 0.6 mg 00:00: 00:00 MOUTH [place] tablet 00 :00 DAILY MD Liane olivier [facility] colchicine 2021-11- No TAKE 1 Univ ers (COLCRYS) 11-21 03-20 TABLET BY ity of 0.6 mg 00:00: 00:00 MOUTH [place] tablet 00 :00 DAILY MD Liane olivier [facility] colchicine 2021-11- No TAKE 1 Univ ers (COLCRYS) 11-21 03-20 TABLET BY ity of 0.6 mg 00:00: 00:00 MOUTH [place] tablet 00 :00 DAILY MD Liane olivier [facility] colchicine 2021-11- No TAKE 1 Univ ers (COLCRYS) 11-21 03-20 TABLET BY ity of 0.6 mg 00:00: 00:00 MOUTH [place] tablet 00 :00 DAILY MD Liane olivier [facility] colchicine 2021-11- No TAKE 1 Univ ers (COLCRYS) 11-21 03-20 TABLET BY ity of 0.6 mg 00:00: 00:00 MOUTH [place] tablet 00 :00 DAILY MD Liane olivier [facility] colchicine 2021-11- No TAKE 1 Univ ers (COLCRYS) 11-21 03-20 TABLET BY ity of 0.6 mg 00:00: 00:00 MOUTH [place] tablet 00 :00 DAILY MD Liane olivier [facility] metFORMIN 2021-11- No TAKE 1 Unive rs (GLUCOPHAGE 11-21 TABLET BY it y of ) 1000 mg 00:00: 00:00 MOUTH IN [place] tablet 00 :00 THE MORNING [place] AND IN THE n EVENING Cancer WITH MEALS Center metFORMIN 2021-11- No TAKE 1 Unive rs (GLUCOPHAGE 11-21 TABLET BY it y of ) 1000 mg 00:00: 00:00 MOUTH IN [place] tablet 00 :00 THE MORNING [place] AND IN THE n EVENING Cancer WITH MEALS Center metFORMIN 2021-11- No TAKE 1 Unive rs (GLUCOPHAGE 11-21 TABLET BY it y of ) 1000 mg 00:00: 00:00 MOUTH IN [place] tablet 00 :00 THE MORNING An[place] AND IN THE n EVENING Cancer WITH [...] [place] tablet 00 :00 THE MORNING [place] AND IN THE n EVENING Cancer WITH MEALS Center metFORMIN 2021-11- No TAKE 1 Unive rs (GLUCOPHAGE 11-21 TABLET BY it y of ) 1000 mg 00:00: 00:00 MOUTH IN [place] tablet 00 :00 THE MD BRODERICK [place] AND IN THE n EVENING Cancer WITH MEALS Center metFORMIN 2021-11- No TAKE 1 Unive rs (GLUCOPHAGE 11-21 TABLET BY it y of ) 1000 mg 00:00: 00:00 MOUTH IN [place] tablet 00 :00 THE MD DAVIE Rob AND IN THE n EVENING Cancer WITH MEALS Center HYDROcodone 2021-11- No 2745 1{tbl} Take 1 U nivers -acetaminop 11-21 tablet by it y of hen 7.5-325 00:00: 00:00 [place] mg per 00 :00 every 6 Medical tablet (six) Branch hours as needed for Pain. Indication s: chronic pain HYDROcodone 2021-11- No 2745 1{tbl} Take 1 U nivers -acetaminop 21 12-21 tablet by it y of hen 7.5-325 00:00: 00:00 [place] mg per 00 :00 every 6 Medical tablet (six) Branch hours as needed for Pain. Indication s: chronic pain [facility] 2021-11 Yes INHALE 1 Univer s Ellipta 1-18 PUFF BY ity of 100-62.5-25 00:00: MOUTH [place] mcg dsdv 00 EVERY DAY MD Liane olivier [facility] 2021-11 Yes INHALE 1 Univer s Ellipta 1-18 PUFF BY ity of 100-62.5-25 00:00: MOUTH [place] mcg dsdv 00 EVERY DAY MD Liane olivier [facility] 2021-11 Yes INHALE 1 Univer s Ellipta 1-18 PUFF BY ity of 100-62.5-25 00:00: MOUTH [place] mcg dsdv 00 EVERY DAY MD Liane olivier [facility] 2021-11 Yes INHALE 1 Univer s Ellipta 1-18 PUFF BY ity of 100-62.5-25 00:00: MOUTH [place] mcg dsdv 00 EVERY DAY MD Liane olivier [facility] 2021-11 Yes INHALE 1 Univer s Ellipta 1-18 PUFF BY ity of 100-62.5-25 00:00: MOUTH [place] mcg dsdv 00 EVERY DAY MD Liane olivier [facility] 2021-11 Yes INHALE 1 Univer s Ellipta 1-18 PUFF BY ity of 100-62.5-25 00:00: MOUTH [place] mcg dsdv 00 EVERY DAY MD Liane olivier [facility] 2021-11 Yes INHALE 1 Univer s Ellipta 1-18 PUFF BY ity of 100-62.5-25 00:00: MOUTH [place] mcg dsdv 00 EVERY DAY MD Liane olivier [facility] [place] nitroglycer 2021-11- No PLACE 1 Un ally in 11-18 03-14 TABLET ity of (NITROSTAT) 00:00: 00:00 UNDER THE [place] 0.4 mg SL 00 :00 TONGUE tablet EVERY 5 Anderso MINUTES n FOR CHEST Cancer PAIN. Center nitroglycer 2021-11- No PLACE 1 Un ally in 11-18 TABLET ity of (NITROSTAT) 00:00: 00:00 UNDER THE [place] 0.4 mg SL 00 :00 TONGUE MD tablet EVERY 5 Anderso MINUTES n FOR CHEST Cancer PAIN. [place] nitroglycer 2021-11- No PLACE 1 Un ally in 11-18 TABLET ity of (NITROSTAT) 00:00: 00:00 UNDER THE [place] 0.4 mg SL 00 :00 TONGUE MD tablet EVERY 5 Anderso MINUTES n FOR CHEST Cancer PAIN. [place] nitroglycer 2021-11- No PLACE 1 Un ally in 11-18 TABLET ity of (NITROSTAT) 00:00: 00:00 UNDER THE [place] 0.4 mg SL 00 :00 TONGUE MD tablet EVERY 5 Anderso MINUTES n FOR CHEST Cancer PAIN. [place] nitroglycer 2021-11- No PLACE 1 Un ally in 11-18 TABLET ity of (NITROSTAT) 00:00: 00:00 UNDER THE [place] 0.4 mg SL 00 :00 TONGUE MD tablet EVERY 5 Anderso MINUTES n FOR CHEST Cancer PAIN. [place] nitroglycer 2021-11- No PLACE 1 Un ally in 11-18 TABLET ity of (NITROSTAT) 00:00: 00:00 UNDER THE [place] 0.4 mg SL 00 :00 TONGUE MD tablet EVERY 5 Anderso MINUTES n FOR CHEST Cancer PAIN. [place] nitroglycer 2021-11- No PLACE 1 Un ally in 11-18 TABLET ity of (NITROSTAT) 00:00: 00:00 UNDER THE [place] 0.4 mg SL 00 :00 TONGUE MD tablet EVERY 5 Anderso MINUTES n FOR CHEST Cancer PAIN. [place] GABAPENTIN 2021-11 Yes [id number] TAKE 1 Univers 600 mg 1-17 TABLET BY ity of tablet 00:00: MOUTH [place] 00 THREE Medical TIMES Branch DAILY GABAPENTIN 2021-11 Yes [id number] TAKE 1 Univers 600 mg 1-17 TABLET BY ity of tablet 00:00: MOUTH [place] 00 THREE Medical TIMES Branch DAILY GABAPENTIN 2021-11 Yes [id number] TAKE 1 Univers 600 mg 1-17 TABLET BY ity of tablet 00:00: MOUTH [place] 00 THREE Medical TIMES Branch DAILY GABAPENTIN 2021-11 Yes [id number] TAKE 1 Univers 600 mg 1-17 TABLET BY ity of tablet 00:00: MOUTH [place] 00 THREE Medical TIMES Branch DAILY GABAPENTIN 2021-11 Yes [id number] TAKE 1 Univers 600 mg 1-17 TABLET BY ity of tablet 00:00: MOUTH [place] THREE Medical TIMES Branch DAILY GABAPENTIN 2021-11 Yes [id number] TAKE 1 Univers 600 mg 1-17 TABLET BY ity of tablet 00:00: MOUTH [place] THREE Medical TIMES Branch DAILY GABAPENTIN 2021-11- No [id number] TAKE 1 Univers 600 mg 1-17 12-21 TABLET BY ity of tablet 00:00: 00:00 MOUTH [place] 00 :00 THREE Medical TIMES Branch DAILY GABAPENTIN 2021-11- No [id number] TAKE 1 Univers 600 mg 1-17 12-21 TABLET BY ity of tablet 00:00: 00:00 MOUTH [place] 00 :00 THREE Medical TIMES Branch DAILY atorvastati 2021-11 Yes TAKE 1 Univ ers n (LIPITOR) 1-12 TABLET BY ity of 20 mg 00:00: MOUTH [place] tablet 00 EVERY DAY MD Liane olivier [facility] ALPRAZolam 2021-11 Yes 2mg Take 2 mg Un ally 2 mg tablet 1-12 by mouth 3 it y of 00:00: (three) [place] 00 times Medical daily as Branch needed. atorvastati 2021-11 Yes 20mg Take 20 mg Univers n 20 mg 1-12 by mouth ity of tablet 00:00: in the [place] 00 morning. Medical Branch ALPRAZolam 2021-11 Yes 2mg Take 2 mg Un ally 2 mg tablet 1-12 by mouth 3 it y of 00:00: (three) [place] 00 times Medical daily as Branch needed. atorvastati 2021-11 Yes 20mg Take 20 mg Univers n 20 mg 1-12 by mouth ity of tablet 00:00: in the [place] 00 morning. Medical Branch ALPRAZolam 2021-11 Yes 2mg Take 2 mg Un ally 2 mg tablet 1-12 by mouth 3 it y of 00:00: (three) [place] 00 times Medical daily as Branch needed. atorvastati 2021-11 Yes 20mg Take 20 mg Univers n 20 mg 1-12 by mouth ity of tablet 00:00: in the [place] 00 morning. Medical Branch ALPRAZolam 2021- Yes 2mg Take 2 mg Un ally 2 mg tablet 1-12 by mouth 3 it y of 00:00: (three) [place] 00 times Medical daily as Branch needed. atorvastati 2021- Yes 20mg Take 20 mg Univers n 20 mg 1-12 by mouth ity of tablet 00:00: in the [place] 00 morning. Medical Branch ALPRAZolam 2021- Yes 2mg Take 2 mg Un ally 2 mg tablet 1-12 by mouth 3 it y of 00:00: (three) [place] 00 times Medical daily as Branch needed. atorvastati 2021-1 Yes 20mg Take 20 mg Univers n 20 mg 1-12 by mouth ity of tablet 00:00: in the [place] 00 morning. Medical Branch ALPRAZolam 2021- Yes 2mg Take 2 mg Un ally 2 mg tablet 1-12 by mouth 3 it y of 00:00: (three) [place] 00 times Medical daily as Branch needed. atorvastati 2021-1 Yes 20mg Take 20 mg Univers n 20 mg 1-12 by mouth ity of tablet 00:00: in the [place] 00 morning. Medical Branch ALPRAZolam 2021- Yes 2mg Take 2 mg Un ally 2 mg tablet 1-12 by mouth 3 it y of 00:00: (three) [place] 00 times Medical daily as Branch needed. atorvastati 2021- Yes 20mg Take 20 mg Univers n 20 mg 1-12 by mouth ity of tablet 00:00: in the [place] 00 morning. Medical Branch ALPRAZolam 2021- Yes 2mg Take 2 mg Un ally 2 mg tablet 1-12 by mouth 3 it y of 00:00: (three) [place] 00 times Medical daily as Branch needed. atorvastati 2-1 Yes 20mg Take 20 mg Univers n 20 mg 1-12 by mouth ity of tablet 00:00: in the [place] 00 morning. Medical Branch ALPRAZolam 2021-1 Yes 2mg Take 2 mg Un ally 2 mg tablet 1-12 by mouth 3 it y of 00:00: (three) [place] 00 times Medical daily as Branch needed. atorvastati 2-1 Yes 20mg Take 20 mg Univers n 20 mg 1-12 by mouth ity of tablet 00:00: in the [place] 00 morning. Medical Branch ALPRAZolam 2021-1 Yes 2mg Take 2 mg Un ally 2 mg tablet 1-12 by mouth 3 it y of 00:00: (three) [place] 00 times Medical daily as Branch needed. atorvastati 2-1 Yes 20mg Take 20 mg Univers n 20 mg 1-12 by mouth ity of tablet 00:00: in the [place] 00 morning. Medical Branch ALPRAZolam 2021-1 Yes 2mg Take 2 mg Un ally 2 mg tablet 1-12 by mouth 3 it y of 00:00: (three) [place] 00 times Medical daily as Branch needed. atorvastati 2-1 Yes 20mg Take 20 mg Univers n 20 mg 1-12 by mouth ity of tablet 00:00: in the [place] 00 morning. Medical Branch ALPRAZolam 2021- Yes 2mg Take 2 mg Un ally 2 mg tablet 1-12 by mouth 3 it y of 00:00: (three) [place] 00 times Medical daily as Branch needed. atorvastati 2-1 Yes 20mg Take 20 mg Univers n 20 mg 1-12 by mouth ity of tablet 00:00: in the [place] 00 morning. Medical Branch ALPRAZolam 2021- Yes 2mg Take 2 mg Un ally 2 mg tablet 1-12 by mouth 3 it y of 00:00: (three) [place] 00 times Medical daily as Branch needed. atorvastati 2021- Yes 20mg Take 20 mg Univers n 20 mg 1-12 by mouth ity of tablet 00:00: in the [place] 00 morning. Medical Branch ALPRAZolam 2021-1 Yes 2mg Take 2 mg Un ally 2 mg tablet 1-12 by mouth 3 it y of 00:00: (three) [place] 00 times Medical daily as Branch needed. atorvastati 2-1 Yes 20mg Take 20 mg Univers n 20 mg 1-12 by mouth ity of tablet 00:00: in the [place] 00 morning. Medical Branch ALPRAZolam 2-1 Yes 2mg Take 2 mg Un ally 2 mg tablet 1-12 by mouth 3 it y of 00:00: (three) [place] 00 times Medical daily as Branch needed. atorvastati 2-1 Yes 20mg Take 20 mg Univers n 20 mg 1-12 by mouth ity of tablet 00:00: in the [place] 00 morning. Medical Branch ALPRAZolam 2021-11 Yes 2mg Take 2 mg Un ally 2 mg tablet 1-12 by mouth 3 it y of 00:00: (three) [place] 00 times Medical daily as Branch needed. atorvastati 2021-11 Yes 20mg Take 20 mg Univers n 20 mg 1-12 by mouth ity of tablet 00:00: in the [place] 00 morning. Medical Branch ALPRAZolam 2021-11 Yes 2mg Take 2 mg Un ally 2 mg tablet 1-12 by mouth 3 it y of 00:00: (three) [place] 00 times Medical daily as Branch needed. atorvastati 2021-11 Yes 20mg Take 20 mg Univers n 20 mg 1-12 by mouth ity of tablet 00:00: in the [place] 00 morning. Medical Branch ALPRAZolam 2021-11 Yes 2mg Take 1 Unive rs 2 mg tablet 1-12 tablet by ity of 00:00: mouth 3 [place] (three) Medical times Branch daily as needed. atorvastati 2021-11 Yes 20mg Take 1 Univ ers n 20 mg 1-12 tablet by ity of tablet 00:00: mouth in [place] the Medical morning. Branch ALPRAZolam 2021-11 Yes 2mg Take 1 Unive rs 2 mg tablet 1-12 tablet by ity of 00:00: mouth 3 [place] (three) Medical times Branch daily as needed. atorvastati 2021-11 Yes 20mg Take 1 Univ ers n 20 mg 1-12 tablet by ity of tablet 00:00: mouth in [place] the Medical morning. Branch ALPRAZolam 2021-11 Yes 2mg Take 1 Unive rs 2 mg tablet 1-12 tablet by ity of 00:00: mouth 3 (three) Medical times Branch daily as needed. atorvastati 2021-11 Yes 20mg Take 1 Univ ers n 20 mg 1-12 tablet by ity of tablet 00:00: mouth in [place] the Medical morning. Branch atorvastati 2021-11 Yes TAKE 1 Univ ers n (LIPITOR) 1-12 TABLET BY ity of 20 mg 00:00: MOUTH [place] tablet 00 EVERY DAY MD Liane olivier [facility] atorvastati 2021-11 Yes TAKE 1 Univ ers n (LIPITOR) 1-12 TABLET BY ity of 20 mg 00:00: MOUTH [place] tablet 00 EVERY DAY MD Liane olivier [facility] Yes TAKE 1 [facility] ers n (LIPITOR) 1-12 TABLET BY ity of 20 mg 00:00: MOUTH [place] tablet 00 EVERY DAY MD Liane olivier [facility] atorvasta 2021-11 Yes TAKE 1 Univ ers n (LIPITOR) 1-12 TABLET BY ity of 20 mg 00:00: MOUTH [place] tablet 00 EVERY DAY MD Liane olivier [facility] atorvasta 2021-11 Yes TAKE 1 Univ ers n (LIPITOR) 1-12 TABLET BY ity of 20 mg 00:00: MOUTH [place] tablet 00 EVERY DAY MD Liane olivier [facility]11 Yes TAKE 1 [facility] ers n (LIPITOR) 1-12 TABLET BY ity of 20 mg 00:00: MOUTH [place] tablet 00 EVERY DAY MD Liane olivier [facility] 2021-11 Yes APPLY Unive rs one 1 % 1-10 TWICE ity of cream 00:00: DAILY IN [place] 00 AND AROUND Medical THE RECTUM Branch AFTER [facility] hydrocortis 2021-11 Yes APPLY Unive rs one 1 % 1-10 TWICE ity of cream 00:00: DAILY IN [place] 00 AND AROUND Medical THE RECTUM Branch AFTER [place] hydrocortis 2021-11 Yes APPLY Unive rs one 1 % 1-10 TWICE ity of cream 00:00: DAILY IN [place] 00 AND AROUND Medical THE RECTUM Branch AFTER [place] hydrocortis 2021-11 Yes APPLY Unive rs one 1 % 1-10 TWICE ity of cream 00:00: DAILY IN [place] 00 AND AROUND Medical THE RECTUM Branch AFTER [place] hydrocortis 2021-11 Yes APPLY Unive rs one 1 % 1-10 TWICE ity of cream 00:00: DAILY IN [place] 00 AND AROUND Medical THE RECTUM Branch AFTER [place] hydrocortis 2021-11 Yes APPLY Unive rs one 1 % 1-10 TWICE ity of cream 00:00: DAILY IN [place] 00 AND AROUND Medical THE RECTUM Branch AFTER [place] hydrocortis 2021-11 Yes APPLY Unive rs one 1 % 1-10 TWICE ity of cream 00:00: DAILY IN [place] 00 AND AROUND Medical THE RECTUM Branch AFTER [place] hydrocortis 2022-1 Yes APPLY Unive rs one 1 % 1-10 TWICE ity of cream 00:00: DAILY IN [place] 00 AND AROUND Medical THE RECTUM Branch AFTER [place] hydrocortis 2021-11 Yes APPLY Unive rs one 1 % 1-10 TWICE ity of cream 00:00: DAILY IN [place] 00 AND AROUND Medical THE RECTUM Branch AFTER [place] hydrocortis 2021-11 Yes APPLY Unive rs one 1 % 1-10 TWICE ity of cream 00:00: DAILY IN [place] 00 AND AROUND Medical THE RECTUM Branch AFTER [place] hydrocortis 2021-11 Yes APPLY Unive rs one 1 % 1-10 TWICE ity of cream 00:00: DAILY IN [place] 00 AND AROUND Medical THE RECTUM Branch AFTER [place] hydrocortis 2021-11 Yes APPLY Unive rs one 1 % 1-10 TWICE ity of cream 00:00: DAILY IN [place] 00 AND AROUND Medical THE RECTUM Branch AFTER [place] hydrocortis 2021-11 Yes APPLY Unive rs one 1 % 1-10 TWICE ity of cream 00:00: DAILY IN [place] 00 AND AROUND Medical THE RECTUM Branch AFTER [place] hydrocortis 2021-11 Yes APPLY Unive rs one 1 % 1-10 TWICE ity of cream 00:00: DAILY IN [place] 00 AND AROUND Medical THE RECTUM Branch AFTER [place] hydrocortis 2021-11 Yes APPLY Unive rs one 1 % 1-10 TWICE ity of cream 00:00: DAILY IN [place] 00 AND AROUND Medical THE RECTUM Branch AFTER [place] hydrocortis 2021-11 Yes APPLY Unive rs one 1 % 1-10 TWICE ity of cream 00:00: DAILY IN [place] 00 AND AROUND Medical THE RECTUM Branch AFTER [place] hydrocortis 2021-11 Yes APPLY Unive rs one 1 % 1-10 TWICE ity of cream 00:00: DAILY IN [place] 00 AND AROUND Medical THE RECTUM Branch AFTER [place] hydrocortis 2021-11 Yes APPLY Unive rs one 1 % 1-10 TWICE ity of cream 00:00: DAILY IN [place] 00 AND AROUND Medical THE RECTUM Branch AFTER [place] hydrocortis 2021-11 Yes APPLY Unive rs one 1 % 1-10 TWICE ity of cream 00:00: DAILY IN [place] 00 AND AROUND Medical THE RECTUM Branch AFTER [place] hydrocortis 2021-11 Yes APPLY Unive rs one 1 % 1-10 TWICE ity of cream 00:00: DAILY IN [place] 00 AND AROUND Medical THE RECTUM Branch AFTER [facility] 2021-11- No APPLY Univ ers one 1 % 11-10- TWICE ity of crpe 00:00: 00:00 DAILY IN [place] 00 :00 AND AROUND MD THE RECTUM [facility] AFTER [facility] 2021-11- No APPLY Univ ers one 1 % 11-10- TWICE ity of crpe 00:00: 00:00 DAILY IN [place] 00 :00 AND AROUND MD THE RECTUM [facility] AFTER [facility] 2021-11- No APPLY Univ ers one 1 % 11-10 TWICE ity of crpe 00:00: 00:00 DAILY IN [place] 00 :00 AND AROUND MD THE RECTUM [place] AFTER [facility] 2021-11- No APPLY Univ ers one 1 % 11-10 TWICE ity of crpe 00:00: 00:00 DAILY IN [place] 00 :00 AND AROUND MD THE RECTUM [facility] AFTER [facility] 2021-11- No APPLY Univ ers one 1 % 11-10 TWICE ity of crpe 00:00: 00:00 DAILY IN [place] 00 :00 AND AROUND MD THE RECTUM Anders[facility] AFTER [facility] 2021-11- No APPLY Univ ers one 1 % 11-10 TWICE ity of crpe 00:00: 00:00 DAILY IN [place] 00 :00 AND AROUND MD THE RECTUM Anders[facility] AFTER [facility] 2021-11- No APPLY Univ ers one 1 % 11-10 TWICE ity of crpe 00:00: 00:00 DAILY IN [place] 00 :00 AND AROUND MD THE RECTUM Anderso AFTER [facility] benzonatate 2021-11 Yes TAKE 1 Univ [...] by ity of tablet 00:00: mouth in [place] 00 the Medical morning Branch and 0.1 [...] by ity of tablet 00:00: mouth in [place] 00 the Medical morning Branch and 0.1 [...] by ity of tablet 00:00: mouth in [place] 00 the Medical morning Branch and 0.1 mg at noon and 0.1 mg in the evening. benzonatate 2021-11 Yes TAKE 1 Univ ers 100 mg 1-05 CAPSULE BY ity of capsule 00:00: MOUTH [place] [address] THREE Medical TIMES [place] DAILY NEEDED FOR COUGH codeine-gua 2021-11 Yes [...] by ity of tablet 00:00: mouth in [place] the Medical morning Branch and 0.1 mg at noon and 0.1 mg in the evening. benzonatate 2021-11 Yes TAKE 1 Univ ers 100 mg 1-05 CAPSULE BY ity of capsule 00:00: MOUTH [place] [address] THREE Medical TIMES [place] DAILY NEEDED FOR COUGH codeine-gua 2021-11 Yes [...] by ity of tablet 00:00: mouth in [place] 00 the Medical morning Branch and 0.1 mg at noon and 0.1 mg in the evening. benzonatate 2021-11 Yes TAKE 1 Univ ers 100 mg 1-05 CAPSULE BY ity of capsule 00:00: MOUTH [place] THREE Medical TIMES Branch DAILY NEEDED FOR [...] by ity of tablet 00:00: mouth in [place] the Medical morning Branch and 0.1 mg at noon and 0.1 mg in the evening. benzonatate 2021-11 Yes TAKE 1 Univ ers 100 mg 1-05 CAPSULE BY ity of capsule 00:00: MOUTH [place] THREE Medical TIMES Branch DAILY NEEDED FOR [...] by ity of tablet 00:00: mouth in [place] 00 the Medical morning Branch and 0.1 [...] by ity of tablet 00:00: mouth in [place] 00 the Medical morning Branch and 0.1 [...] by ity of tablet 00:00: mouth in [place] 00 the Medical morning Branch and 0.1 [...] by ity of tablet 00:00: mouth in [place] 00 the Medical morning Branch and 0.1 mg at noon and 0.1 mg in the evening. benzonatate 2021-11 Yes TAKE 1 Univ ers 100 mg 1-05 CAPSULE BY ity of capsule 00:00: MOUTH [place] 00 THREE Medical TIMES Branch DAILY NEEDED [...] by ity of tablet 00:00: mouth in [place] the Medical morning Branch and 0.1 mg at noon and 0.1 mg in the evening. benzonatate 2021-11 Yes TAKE 1 Univ ers 100 mg 1-05 CAPSULE BY ity of capsule 00:00: MOUTH [place] [address] THREE Medical TIMES Branch DAILY NEEDED FOR [...] by ity of tablet 00:00: mouth in [place] the Medical morning Branch and 0.1 mg at noon and 0.1 mg in the evening. benzonatate 2021-11 Yes TAKE 1 Univ ers 100 mg 1-05 CAPSULE BY ity of capsule 00:00: MOUTH [place] 00 THREE Medical TIMES Branch DAILY NEEDED [...] by ity of tablet 00:00: mouth in [place] the Medical morning Branch and 0.1 mg at noon and 0.1 mg in the evening. benzonatate 2021-11 Yes TAKE 1 Univ ers 100 mg 1-05 CAPSULE BY ity of capsule 00:00: MOUTH [place] 00 THREE Medical TIMES Branch DAILY NEEDED [...] by ity of tablet 00:00: mouth in [place] 00 the Medical morning Branch and 0.1 [...] by ity of tablet 00:00: mouth in [place] the Medical morning Branch and 0.1 mg at noon and 0.1 mg in the evening. benzonatate 2021-11 Yes TAKE 1 Univ ers 100 mg 1-05 CAPSULE BY ity of capsule 00:00: MOUTH [place] THREE Medical TIMES Branch DAILY NEEDED FOR [...] by ity of tablet 00:00: mouth in [place] the Medical morning Branch and 1 tablet at noon and 1 tablet in the evening. benzonatate 2021-11 Yes TAKE 1 Univ ers 100 mg 1-05 CAPSULE BY ity of capsule 00:00: MOUTH [place] THREE Medical TIMES [place] DAILY NEEDED FOR COUGH codeine-gua 2021-11 Yes [...] by ity of tablet 00:00: mouth in [place] the Medical morning Branch and 1 tablet [...] tablet in the evening. LISINOPRIL 2021-11 Yes [id number] TAKE 1/2 Univers 40 mg 1-04 TABLET BY ity of tablet 00:00: MOUTH [place] 00 TWICE Medical DAILY Branch LISINOPRIL 2021-11 Yes [id number] TAKE 1/2 Univers 40 mg 1-04 TABLET BY ity of tablet 00:00: MOUTH [place] 00 TWICE Medical DAILY Branch LISINOPRIL 2021-11 Yes [id number] TAKE 1/2 Univers 40 mg 1-04 TABLET BY ity of tablet 00:00: MOUTH [place] 00 TWICE Medical DAILY Branch LISINOPRIL 2021-11 Yes [id number] TAKE 1/2 Univers 40 mg 1-04 TABLET BY ity of tablet 00:00: MOUTH [place] 00 TWICE Medical DAILY Branch LISINOPRIL 2021-11 Yes [id number] TAKE 1/2 Univers 40 mg 1-04 TABLET BY ity of tablet 00:00: MOUTH [place] 00 TWICE Medical DAILY Branch LISINOPRIL 2021-11 Yes [id number] TAKE 1/2 Univers 40 mg 1-04 TABLET BY ity of tablet 00:00: MOUTH [place] 00 TWICE Medical DAILY Branch LISINOPRIL 2021-11 Yes [id number] TAKE 1/2 Univers 40 mg 1-04 TABLET BY ity of tablet 00:00: MOUTH [place] 00 TWICE Medical DAILY Branch LISINOPRIL 2021-11- [id number] TAKE 1/2 Univers 40 mg 1-04 12-02 TABLET BY ity of tablet 00:00: 00:00 MOUTH [place] 00 :00 TWICE Medical DAILY Branch hydrALAZINE 2021-11 Yes [id number] TAKE 1 Univers 100 mg 1-03 TABLET BY ity of tablet 00:00: MOUTH [place] 00 THREE Medical TIMES Branch DAILY lisinopriL 2021-11 Yes [id number] TAKE 1/2 Univers 40 mg 1-03 TABLET BY ity of tablet 00:00: MOUTH [place] 00 TWICE Medical DAILY Branch metoprolol 2021-11 Yes TAKE 1 Unive rs tartrate 1-03 TABLET BY ity of 100 mg 00:00: MOUTH [place] tablet 00 TWICE Medical DAILY Branch hydrALAZINE 2021-11 Yes [id number] TAKE 1 Univers 100 mg 1-03 TABLET BY ity of tablet 00:00: MOUTH [place] 00 THREE Medical TIMES Branch DAILY metoprolol 2021-11 Yes TAKE 1 Unive rs tartrate 1-03 TABLET BY ity of 100 mg 00:00: MOUTH [place] tablet 00 TWICE Medical DAILY Branch hydrALAZINE 2021-11 Yes [id number] TAKE 1 Univers 100 mg 1-03 TABLET BY ity of tablet 00:00: MOUTH [place] 00 THREE Medical TIMES Branch DAILY metoprolol 2021-11 Yes TAKE 1 Unive rs tartrate 1-03 TABLET BY ity of 100 mg 00:00: MOUTH [place] tablet 00 TWICE Medical DAILY Branch hydrALAZINE 2021-11 Yes [id number] TAKE 1 Univers 100 mg 1-03 TABLET BY ity of tablet 00:00: MOUTH [place] 00 THREE Medical TIMES Branch DAILY metoprolol 2021-11 Yes TAKE 1 Unive rs tartrate 1-03 TABLET BY ity of 100 mg 00:00: MOUTH [place] tablet 00 TWICE Medical DAILY Branch hydrALAZINE 2021-11 Yes [id number] TAKE 1 Univers 100 mg 1-03 TABLET BY ity of tablet 00:00: MOUTH [place] 00 THREE Medical TIMES Branch DAILY metoprolol 2021-11 Yes TAKE 1 Unive rs tartrate 1-03 TABLET BY ity of 100 mg 00:00: MOUTH [place] tablet 00 TWICE Medical DAILY Branch hydrALAZINE 2021-11 Yes [id number] TAKE 1 Univers 100 mg 1-03 TABLET BY ity of tablet 00:00: MOUTH [place] 00 THREE Medical TIMES Branch DAILY metoprolol 2021-11 Yes TAKE 1 Unive rs tartrate 1-03 TABLET BY ity of 100 mg 00:00: MOUTH [place] tablet 00 TWICE Medical DAILY Branch hydrALAZINE 2021-11 Yes [id number] TAKE 1 Univers 100 mg 1-03 TABLET BY ity of tablet 00:00: MOUTH [place] 00 THREE Medical TIMES Branch DAILY metoprolol 2021-11 Yes TAKE 1 Unive rs tartrate 1-03 TABLET BY ity of 100 mg 00:00: MOUTH [place] tablet 00 TWICE Medical DAILY Branch hydrALAZINE 2021-11 Yes [id number] TAKE 1 Univers 100 mg 1-03 TABLET BY ity of tablet 00:00: MOUTH [place] 00 THREE Medical TIMES Branch DAILY metoprolol 2021-11 Yes TAKE 1 Unive rs tartrate 1-03 TABLET BY ity of 100 mg 00:00: MOUTH [place] tablet 00 TWICE Medical DAILY Branch hydrALAZINE 2021-11 Yes [id number] TAKE 1 Univers 100 mg 1-03 TABLET BY ity of tablet 00:00: MOUTH [place] 00 THREE Medical TIMES Branch DAILY metoprolol 2021-11 Yes TAKE 1 Unive rs tartrate 1-03 TABLET BY ity of 100 mg 00:00: MOUTH [place] tablet 00 TWICE Medical DAILY Branch hydrALAZINE 2021-11 Yes [id number] TAKE 1 Univers 100 mg 1-03 TABLET BY ity of tablet 00:00: MOUTH [place] 00 THREE Medical TIMES Branch DAILY metoprolol 2021-11 Yes TAKE 1 Unive rs tartrate 1-03 TABLET BY ity of 100 mg 00:00: MOUTH [place] tablet 00 TWICE Medical DAILY Branch hydrALAZINE 2021-11 Yes [id number] TAKE 1 Univers 100 mg 1-03 TABLET BY ity of tablet 00:00: MOUTH [place] 00 THREE Medical TIMES Branch DAILY metoprolol 2021-11 Yes TAKE 1 Unive rs tartrate 1-03 TABLET BY ity of 100 mg 00:00: MOUTH [place] tablet 00 TWICE Medical DAILY Branch hydrALAZINE 2021-11 Yes [id number] TAKE 1 Univers 100 mg 1-03 TABLET BY ity of tablet 00:00: MOUTH [place] 00 THREE Medical TIMES Branch DAILY hydrALAZINE 2021-11 Yes [id number] TAKE 1 Univers 100 mg 1-03 TABLET BY ity of tablet 00:00: MOUTH [place] 00 THREE Medical TIMES Branch DAILY hydrALAZINE 2021-11- No [id number] TAKE 1 Univers 100 mg 11-03 TABLET BY ity of tablet 00:00: 00:00 MOUTH [place] 00 :00 THREE Medical TIMES Branch DAILY metoprolol 2021-11- No TAKE 1 Univ ers tartrate 11-03 TABLET BY ity o f 100 mg 00:00: 00:00 MOUTH [place] tablet 00 :00 TWICE Medical DAILY Branch lisinopriL 2021-11- No [id number] TAKE 1/2 Univers 40 mg 11-03 TABLET BY ity of tablet 00:00: 00:00 MOUTH [place] 00 :00 TWICE Medical DAILY Branch allopurinoL 2021-11 Yes 300mg Take 300 U nivers 300 mg 1-01 mg by ity of tablet 00:00: mouth in [place] 00 the Medical morning Branch and 300 mg in the evening. allopurinoL 2021-11 Yes 300mg Take 300 U nivers 300 mg 1-01 mg by ity of tablet 00:00: mouth in [place] 00 the Medical morning Branch and 300 mg in the evening. allopurinoL 2021-11 Yes 300mg Take 300 U nivers 300 mg 1-01 mg by ity of tablet 00:00: mouth in [place] 00 the Medical morning Branch and 300 mg in the evening. allopurinoL 2021-11 Yes 300mg Take 300 U nivers 300 mg 1-01 mg by ity of tablet 00:00: mouth in [place] 00 the Medical morning Branch and 300 mg in the evening. allopurinoL 2021-11 Yes 300mg Take 300 U nivers 300 mg 1-01 mg by ity of tablet 00:00: mouth in [place] 00 the Medical morning Branch and 300 mg in the evening. allopurinoL 2021-11 Yes 300mg Take 300 U nivers 300 mg 1-01 mg by ity of tablet 00:00: mouth in [place] 00 the Medical morning Branch and 300 mg in the evening. allopurinoL 2021-11 Yes 300mg Take 300 U nivers 300 mg 1-01 mg by ity of tablet 00:00: mouth in [place] [address] the Medical morning Branch and 300 mg in the evening. allopurinoL 2021-11 Yes 300mg Take 300 U nivers 300 mg 1-01 mg by ity of tablet 00:00: mouth in [place] 00 the Medical morning Branch and 300 mg in the evening. allopurinoL 2022-1 Yes 300mg Take 300 U nivers 300 mg 1-01 mg by ity of tablet 00:00: mouth in [place] 00 the Medical morning Branch and 300 mg in the evening. allopurinoL 2022-1 Yes 300mg Take 300 U nivers 300 mg 1-01 mg by ity of tablet 00:00: mouth in [place] 00 the Medical morning Branch and 300 mg in the evening. allopurinoL 2022-1 Yes 300mg Take 300 U nivers 300 mg 1-01 mg by ity of tablet 00:00: mouth in [place] 00 the Medical morning Branch and 300 mg in the evening. allopurinoL 2022-1 Yes 300mg Take 300 U nivers 300 mg 1-01 mg by ity of tablet 00:00: mouth in [place] 00 the Medical morning Branch and 300 mg in the evening. allopurinoL 2022-1 Yes 300mg Take 300 U nivers 300 mg 1-01 mg by ity of tablet 00:00: mouth in [place] [address] the Medical morning Branch and 300 mg in the evening. allopurinoL 2022-1 Yes 300mg Take 300 U nivers 300 mg 1-01 mg by ity of tablet 00:00: mouth in [place] 00 the Medical morning Branch and 300 mg in the evening. allopurinoL 2022-1 Yes 300mg Take 300 U nivers 300 mg 1-01 mg by ity of tablet 00:00: mouth in [place] [address] the Medical morning Branch and 300 mg in the evening. allopurinoL 2022-1 Yes 300mg Take 300 U nivers 300 mg 1-01 mg by ity of tablet 00:00: mouth in [place] 00 the Medical morning Branch and 300 mg in the evening. allopurinoL 2022-1 Yes 300mg Take 300 U nivers 300 mg 1-01 mg by ity of tablet 00:00: mouth in [place] 00 the Medical morning Branch and 300 mg in the evening. allopurinoL 2022-1 Yes 300mg Take 1 Uni vers 300 mg 1-01 tablet by ity of tablet 00:00: mouth in [place] [address] the Medical morning Branch and 1 tablet in the evening. allopurinoL 2022-1 Yes 300mg Take 1 Uni vers 300 mg 1-01 tablet by ity of tablet 00:00: mouth in [place] 00 the Medical morning Branch and 1 tablet in the evening. allopurinoL 2021-11 Yes 300mg Take 1 Uni vers 300 mg 11-01 tablet by ity of tablet 00:00: mouth in [place] [address] [facility] morning Branch and 1 tablet in the evening. allopurinol 2021-11- No TAKE 1 Uni vers (ZYLOPRIM) 11-0120 TABLET BY ity of 300 mg 00:00: 00:00 MOUTH [place] tablet 00 :00 TWICE MD DAILY [facility] allopurinol 2021-11- No TAKE 1 Uni vers (ZYLOPRIM) 11-0120 TABLET BY ity of 300 mg 00:00: 00:00 MOUTH [place] tablet 00 :00 TWICE MD DAILY [facility] allopurinol 2021-11- No TAKE 1 Uni vers (ZYLOPRIM) 11-0120 TABLET BY ity of 300 mg 00:00: 00:00 MOUTH [place] tablet 00 :00 TWICE MD DAILY [facility] allopurinol 2021-11- No TAKE 1 Uni vers (ZYLOPRIM) 11-0120 TABLET BY ity of 300 mg 00:00: 00:00 MOUTH [place] tablet 00 :00 TWICE MD DAILY [facility] allopurinol 2021-11- No TAKE 1 Uni vers (ZYLOPRIM) 11-0120 TABLET BY ity of 300 mg 00:00: 00:00 MOUTH [place] tablet 00 :00 TWICE MD DAILY [facility] allopurinol 2021-11- No TAKE 1 Uni vers (ZYLOPRIM) 11-0120 TABLET BY ity of 300 mg 00:00: 00:00 MOUTH [place] tablet 00 :00 TWICE MD DAILY [facility] allopurinol 2021-11- No TAKE 1 Uni vers (ZYLOPRIM) 11-01-20 TABLET BY ity of 300 mg 00:00: 00:00 MOUTH [place] tablet 00 :00 TWICE MD DAILY [facility] triamcinolo 2021-11 Yes APPLY Unive [...] :00 AFFECTED MD AREA TWICE [place] DAILY [facility] triamcinolo 2021-11- No APPLY Univ ers ne 0-28 03-14 TOPICALLY ity of (KENALOG) 00:00: 00:00 TO THE [place] 0.1% cream 00 :00 AFFECTED MD AREA TWICE [place] DAILY [facility] triamcinolo 2021-11- No APPLY Univ ers ne 0-28 03-14 TOPICALLY ity of (KENALOG) 00:00: 00:00 TO THE [place] 0.1% cream 00 :00 AFFECTED MD AREA TWICE [place] DAILY n [facility] 2021-11- No APPLY Univ ers ne 0-28 03-14 TOPICALLY ity of (KENALOG) 00:00: 00:00 TO THE [place] 0.1% cream 00 :00 AFFECTED MD AREA TWICE [place] DAILY n [facility] 2021-11- No APPLY Univ ers ne 0- 03-14 TOPICALLY ity of (KENALOG) 00:00: 00:00 TO THE [place] 0.1% cream 00 :00 AFFECTED MD AREA TWICE [place] DAILY n [facility] 2021-11- No APPLY Univ ers ne 0- 03-14 TOPICALLY ity of (KENALOG) 00:00: 00:00 TO THE [place] 0.1% cream 00 :00 AFFECTED MD AREA TWICE [place] DAILY n [facility] 2021-11- No APPLY Univ ers ne 0-26 01-14 TOPICALLY ity of (KENALOG) 00:00: 00:00 TO THE [place] 0.1% cream 00 :00 AFFECTED MD AREA TWICE [place] DAILY n [facility] ketorolac 2021-11- No [id number] 30mg Univers (TORADOL) 0-25 10-25 9105 ity of injection 16:45: 16:45 [place] 30 mg 00 :00 [facility] ketorolac 2021-11- No [id number] 30mg 30 mg, Univers (TORADOL) 0-25 10-25 9105 [facility] ity of injection 16:45: 16:45 [place], ONCE, [place] 30 mg 00 :00 1 dose, On [facility] 08/25/22 at 1145, Routine ketorolac 2021-11- No [id number] 30mg Univers (TORADOL) 0-25 10-25 9105 ity of injection 16:45: 16:45 [place] 30 mg 00 :00 [facility] ketorolac 2021-11- No [id number] 30mg 30 mg, Univers (TORADOL) 0-25 10-25 9105 [facility] ity of injection 16:45: 16:45 [place], ONCE, [place] 30 mg 00 :00 1 dose, On [facility] 08/25/22 at 1145, Routine rizatriptan 2021-11 Yes [id number] 5mg Take 1 Univers 5 mg 0-25 9105 tablet by ity of disintegrat 00:00: mouth [place] tablet 00 needed for Med ical Migraine Branch (take 1 on onset of migraine and can repeat in 2 hrs). May repeat in 2 hours if needed rizatriptan 2021-11 Yes [id number] 5mg Take 1 Univers 5 mg 0-25 9105 tablet by ity of disintegrat 00:00: mouth [place] tablet 00 needed for Med ical Migraine Branch (take 1 on onset of migraine and can repeat in 2 hrs). May repeat in 2 hours if needed rizatriptan 2021-11 Yes [id number] 5mg Take 1 Univers 5 mg 0-25 9105 tablet by ity of disintegrat 00:00: mouth [place] tablet 00 needed for Med ical Migraine Branch (take 1 on onset of migraine and can repeat in 2 hrs). May repeat in 2 hours if needed rizatriptan 2021-11 Yes [id number] 5mg Take 1 Univers 5 mg 0-25 9105 tablet by ity of disintegrat 00:00: mouth [place] tablet 00 needed for Med ical Migraine Branch (take 1 on onset of migraine and can repeat in 2 hrs). May repeat in 2 hours if needed rizatriptan 2021-11 Yes [id number] 5mg Take 1 Univers 5 mg 0-25 9105 tablet by ity of disintegrat 00:00: mouth [place] tablet 00 needed for Med ical Migraine Branch (take 1 on onset of migraine and can repeat in 2 hrs). May repeat in 2 hours if needed rizatriptan 2021-11 Yes [id number] 5mg Take 1 Univers 5 mg 0-25 9105 tablet by ity of disintegrat 00:00: mouth [place] tablet 00 needed for Med ical Migraine Branch (take 1 on onset of migraine and can repeat in 2 hrs). May repeat in 2 hours if needed rizatriptan 2021-11 Yes [id number] 5mg Take 1 Univers 5 mg 0-25 9105 tablet by ity of disintegrat 00:00: mouth [place] tablet 00 needed for Med ical Migraine Branch (take 1 on onset of migraine and can repeat in 2 hrs). May repeat in 2 hours if needed rizatriptan 2021-11 Yes [id number] 5mg Take 1 Univers 5 mg 0-25 9105 tablet by ity of disintegrat 00:00: mouth [place] tablet 00 needed for Med ical Migraine Branch (take 1 on onset of migraine and can repeat in 2 hrs). May repeat in 2 hours if needed rizatriptan 2021-11 Yes [id number] 5mg Take 1 Univers 5 mg 0-25 9105 tablet by ity of disintegrat 00:00: mouth [place] tablet 00 needed for Med ical Migraine Branch (take 1 on onset of migraine and can repeat in 2 hrs). May repeat in 2 hours if needed rizatriptan 2021-11 Yes [id number] 5mg Take 1 Univers 5 mg 0-25 9105 tablet by ity of disintegrat 00:00: mouth [place] tablet 00 needed for Med ical Migraine Branch (take 1 on onset of migraine and can repeat in 2 hrs). May repeat in 2 hours if needed rizatriptan 2021-11 Yes [id number] 5mg Take 1 Univers 5 mg 0-25 9105 tablet by ity of disintegrat 00:00: mouth [place] tablet 00 needed for Med ical Migraine Branch (take 1 on onset of migraine and can repeat in 2 hrs). May repeat in 2 hours if needed rizatriptan 2021-11 Yes [id number] 5mg Take 1 [facility] 5 mg 0-25 9105 tablet by ity of disintegrat 00:00: mouth [place] tablet 00 needed for Med ical Migraine Branch (take 1 on onset of migraine and can repeat in 2 hrs). May repeat in 2 hours if needed rizatriptan 2021-11 Yes [id number] 5mg Take 1 Univers 5 mg 0-25 9105 tablet by ity of disintegrat 00:00: mouth [place] tablet 00 needed for Med ical Migraine Branch (take 1 on onset of migraine and can repeat in 2 hrs). May repeat in 2 hours if needed rizatriptan 2021-11 Yes [id number] 5mg Take 1 [facility] 5 mg 0-25 9105 tablet by ity of disintegrat 00:00: mouth [place] tablet 00 needed for Med ical Migraine Branch (take 1 on onset of migraine and can repeat in 2 hrs). May repeat in 2 hours if needed rizatriptan 2021-11 Yes [id number] 5mg Take 1 [facility] 5 mg 0-25 9105 tablet by [facility] disintegrat 00:00: mouth [place] ing tablet 00 needed for Med ical Migraine Branch (take 1 on onset of migraine and can repeat in 2 hrs). May repeat in 2 hours if needed rizatriptan 2021-11 Yes [id number] 5mg Take 1 [facility] 5 mg 0-25 9105 tablet by [facility] of disintegrat 00:00: mouth [place] tablet 00 needed for Med ical Migraine Branch (take 1 on onset of migraine and can repeat in 2 hrs). May repeat in 2 hours if needed rizatriptan 2021-11 Yes [id number] 5mg Take 1 [facility] 5 mg 0-25 9105 tablet by [facility] of disintegrat 00:00: mouth [place] ing tablet 00 needed for Med ical Migraine Branch (take 1 on onset of migraine and can repeat in 2 hrs). May repeat in 2 hours if needed rizatriptan 2021-11 Yes [id number] 5mg Take 1 [facility] 5 mg 0-25 9105 tablet by [facility] of disintegrat 00:00: mouth [place] ing tablet 00 needed for Med ical Migraine Branch (take 1 on onset of migraine and can repeat in 2 hrs). May repeat in 2 hours if needed rizatriptan 2021-11 Yes [id number] 5mg Take 1 [facility] 5 mg 0-25 9105 tablet by [facility] of disintegrat 00:00: mouth [place] tablet 00 needed for Med ical Migraine Branch (take 1 on onset of migraine and can repeat in 2 hrs). May repeat in 2 hours if needed rizatriptan 2021-11 Yes [id number] 5mg Take 1 [facility] 5 mg 0-25 9105 tablet by [facility] of disintegrat 00:00: mouth [place] ing tablet 00 needed for Med ical Migraine Branch (take 1 on onset of migraine and can repeat in 2 hrs). May repeat in 2 hours if needed rizatriptan 2021-11 Yes [id number] 5mg Take 1 [facility] 5 mg 0-25 9105 tablet by ity of disintegrat 00:00: mouth [place] ing tablet 00 needed for Med ical Migraine Branch (take 1 on onset of migraine and can repeat in 2 hrs). May repeat in 2 hours if needed rizatriptan 2021-11 Yes [id number] 5mg Take 1 [facility] 5 mg 0-25 9105 tablet by [facility] of disintegrat 00:00: mouth [place] tablet 00 needed for Med ical Migraine Branch (take 1 on onset of migraine and can repeat in 2 hrs). May repeat in 2 hours if needed rizatriptan 2021-11 Yes [id number] 5mg Take 1 [facility] 5 mg 0-25 9105 tablet by [facility]y of disintegrat 00:00: mouth as [place] ing tablet 00 needed for Med ical Migraine Branch (take 1 on onset of migraine and can repeat in 2 hrs). May repeat in 2 hours if needed rizatriptan 2021-11 Yes [id number] 5mg Take 1 [facility] 5 mg 0-25 9105 tablet by [facility]y of disintegrat 00:00: mouth as [place] ing tablet 00 needed for Med ical Migraine Branch (take 1 on onset of migraine and can repeat in 2 hrs). May repeat in 2 hours if needed rizatriptan 2021-11 Yes [id number] 5mg Take 1 [facility] 5 mg 0-25 9105 tablet by [facility] of disintegrat 00:00: mouth as [place] ing tablet 00 needed for Med ical Migraine Branch (take 1 on onset of migraine and can repeat in 2 hrs). May repeat in 2 hours if needed rizatriptan 2021-11 Yes [id number] 5mg Take 1 [facility] 5 mg 0-25 9105 tablet by [facility] of disintegrat 00:00: mouth [place] ing tablet 00 needed for Med ical Migraine Branch (take 1 on onset of migraine and can repeat in 2 hrs). May repeat in 2 hours if needed rizatriptan 2021-11 Yes [id number] 5mg Take 1 [facility] 5 mg 0-25 9105 tablet by ity of disintegrat 00:00: mouth [place] ing tablet 00 needed for Med ical Migraine Branch (take 1 on onset of migraine and can repeat in 2 hrs). May repeat in 2 hours if needed rizatriptan 2021-11 Yes [id number] 5mg Take 1 [facility] 5 mg 0-25 9105 tablet by ity of disintegrat 00:00: mouth as [place] ing tablet 00 needed for Med ical Migraine Branch (take 1 on onset of migraine and can repeat in 2 hrs). May repeat in 2 hours if needed rizatriptan 2021-11 Yes [id number] 5mg Take 1 [facility] 5 mg 0-25 9105 tablet by ity of disintegrat 00:00: mouth as [place] ing tablet 00 needed for Med ical Migraine Branch (take 1 on onset of migraine and can repeat in 2 hrs). May repeat in 2 hours if needed rizatriptan 2021-11 Yes [id number] 5mg Take 1 [facility] 5 mg 0-25 9105 tablet by ity of disintegrat 00:00: mouth as [place] ing tablet 00 needed for Med ical Migraine Branch (take 1 on onset of migraine and can repeat in 2 hrs). May repeat in 2 hours if needed rizatriptan 2021-11 Yes [id number] 5mg Take 1 [facility] 5 mg 0-25 9105 tablet by ity of disintegrat 00:00: mouth as [place] ing tablet 00 needed for Med ical Migraine Branch (take 1 on onset of migraine and can repeat in 2 hrs). 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 mesalamine 2021-11 Yes TAKE 4 Unive rs (APRISO) 0-24 CAPSULES ity of 0.375 gram 00:00: BY MOUTH [place] 24 hr 00 DAILY MD capsule [facility] NITROGLYCER 2021-[id number] 1 [facility] IN 0.4 mg 0-24 TABLET ity of sublingual 00:00: UNDER THE [place] tablet 00 TONGUE Medical EVERY 5 Branch MINUTES NEEDED FOR CHEST PAIN. NITROGLYCER 2021-[id number] 1 [facility] IN 0.4 mg 0-24 TABLET ity of sublingual 00:00: UNDER THE [place] tablet 00 TONGUE Medical EVERY 5 Branch MINUTES NEEDED FOR CHEST PAIN. NITROGLYCER 2021-[id number] 1 [facility] IN 0.4 mg 0-24 TABLET ity of sublingual 00:00: UNDER THE [place] tablet 00 TONGUE Medical EVERY 5 Branch MINUTES NEEDED FOR CHEST PAIN. NITROGLYCER 2021-[id number] 1 [facility] IN 0.4 mg 0-24 TABLET ity of sublingual 00:00: UNDER THE [place] tablet 00 TONGUE Medical EVERY 5 Branch MINUTES NEEDED FOR CHEST PAIN. NITROGLYCER 2021-[id number] 1 [facility] IN 0.4 mg 0-24 TABLET ity of sublingual 00:00: UNDER THE [place] tablet 00 TONGUE Medical EVERY 5 Branch MINUTES NEEDED FOR CHEST PAIN. NITROGLYCER 2021-[id number] 1 [facility] IN 0.4 mg 0-24 TABLET ity of sublingual 00:00: UNDER THE [place] tablet 00 TONGUE Medical EVERY 5 Branch MINUTES NEEDED FOR CHEST PAIN. NITROGLYCER 2021-[id number] 1 [facility] IN 0.4 mg 0-24 TABLET ity of sublingual 00:00: UNDER THE [place] tablet 00 TONGUE Medical EVERY 5 Branch MINUTES NEEDED FOR CHEST PAIN. NITROGLYCER 2021-[id number] 1 [facility] IN 0.4 mg 0-24 TABLET ity of sublingual 00:00: UNDER THE [place] tablet 00 TONGUE Medical EVERY 5 Branch MINUTES NEEDED FOR CHEST PAIN. NITROGLYCER 2021-[id number] 1 [facility] IN 0.4 mg 0-24 TABLET ity of sublingual 00:00: UNDER THE [place] tablet 00 TONGUE Medical EVERY 5 Branch MINUTES NEEDED FOR CHEST PAIN. NITROGLYCER 2021-[id number] 1 [facility] IN 0.4 mg 0-24 TABLET ity of sublingual 00:00: UNDER THE [place] tablet 00 TONGUE Medical EVERY 5 Branch MINUTES NEEDED FOR CHEST PAIN. NITROGLYCER 2021-[id number] 1 [facility] IN 0.4 mg 0-24 TABLET ity of sublingual 00:00: UNDER THE [place] tablet 00 TONGUE Medical EVERY 5 Branch MINUTES NEEDED FOR CHEST PAIN. NITROGLYCER 2021-[id number] 1 [facility] IN 0.4 mg 0-24 TABLET ity of sublingual 00:00: UNDER THE [place] tablet 00 TONGUE Medical EVERY 5 Branch MINUTES NEEDED FOR CHEST PAIN. NITROGLYCER 2021-[id number] 1 [facility] IN 0.4 mg 0-24 TABLET ity of sublingual 00:00: UNDER THE [place] tablet 00 TONGUE Medical EVERY 5 Branch MINUTES NEEDED FOR CHEST PAIN. NITROGLYCER 2021-[id number] 1 [facility] IN 0.4 mg 0-24 TABLET ity of sublingual 00:00: UNDER THE [place] tablet 00 TONGUE Medical EVERY 5 Branch MINUTES NEEDED FOR CHEST PAIN. NITROGLYCER 2021-[id number] 1 [facility] IN 0.4 mg 0-24 TABLET ity of sublingual 00:00: UNDER THE [place] tablet 00 TONGUE Medical EVERY 5 Branch MINUTES NEEDED FOR CHEST PAIN. NITROGLYCER 2021-[id number] 1 [facility] IN 0.4 mg 0-24 TABLET ity of sublingual 00:00: UNDER THE [place] tablet 00 TONGUE Medical EVERY 5 Branch MINUTES NEEDED FOR CHEST PAIN. NITROGLYCER 2021-[id number] 1 [facility] IN 0.4 mg 0-24 TABLET ity of sublingual 00:00: UNDER THE [place] tablet 00 TONGUE Medical EVERY 5 Branch MINUTES NEEDED FOR CHEST PAIN. NITROGLYCER 2021-[id number] 1 [facility] IN 0.4 mg 0-24 TABLET ity of sublingual 00:00: UNDER THE [place] tablet 00 TONGUE Medical EVERY 5 Branch MINUTES NEEDED FOR CHEST PAIN. NITROGLYCER 2021-[id number] 1 [facility] IN 0.4 mg 0-24 TABLET ity of sublingual 00:00: UNDER THE [place] tablet 00 TONGUE Medical EVERY 5 Branch MINUTES NEEDED FOR CHEST PAIN. NITROGLYCER 2021-[id number] 1 [facility] IN 0.4 mg 0-24 TABLET ity of sublingual 00:00: UNDER THE [place] tablet 00 TONGUE Medical EVERY 5 Branch MINUTES NEEDED FOR CHEST PAIN. NITROGLYCER 2021-[id number] 1 [facility] IN 0.4 mg 0-24 TABLET ity of sublingual 00:00: UNDER THE [place] tablet 00 TONGUE Medical EVERY 5 Branch MINUTES NEEDED FOR CHEST PAIN. NITROGLYCER 2021-[id number] 1 [facility] IN 0.4 mg 0-24 TABLET ity of sublingual 00:00: UNDER THE [place] tablet 00 TONGUE Medical EVERY 5 Branch MINUTES NEEDED FOR CHEST PAIN. NITROGLYCER 2021-[id number] 1 [facility] IN 0.4 mg 0-24 TABLET ity of sublingual 00:00: UNDER THE [place] tablet 00 TONGUE Medical EVERY 5 Branch MINUTES NEEDED FOR CHEST PAIN. NITROGLYCER 2021-[id number] 1 [facility] IN 0.4 mg 0-24 TABLET ity of sublingual 00:00: UNDER THE [place] tablet 00 TONGUE Medical EVERY 5 Branch MINUTES NEEDED FOR CHEST PAIN. NITROGLYCER 2021-[id number] 1 [facility] IN 0.4 mg 0-24 TABLET ity of sublingual 00:00: UNDER THE [place] tablet 00 TONGUE Medical EVERY 5 Branch MINUTES NEEDED FOR CHEST PAIN. NITROGLYCER 2021-[id number] 1 [facility] IN 0.4 mg 0-24 TABLET ity of sublingual 00:00: UNDER THE [place] tablet 00 TONGUE Medical EVERY 5 Branch MINUTES NEEDED FOR CHEST PAIN. NITROGLYCER 2021-[id number] 1 [facility] IN 0.4 mg 0-24 TABLET ity of sublingual 00:00: UNDER THE [place] tablet 00 TONGUE Medical EVERY 5 Branch MINUTES NEEDED FOR CHEST PAIN. NITROGLYCER 2021-[id number] 1 [facility] IN 0.4 mg 0-24 TABLET ity of sublingual 00:00: UNDER THE [place] tablet 00 TONGUE Medical EVERY 5 Branch MINUTES NEEDED FOR CHEST PAIN. NITROGLYCER 2021-[id number] 1 [facility] IN 0.4 mg 0-24 TABLET ity of sublingual 00:00: UNDER THE [place] tablet 00 TONGUE Medical EVERY 5 Branch MINUTES NEEDED FOR CHEST PAIN. NITROGLYCER 2021-[id number] 1 [facility] IN 0.4 mg 0-24 TABLET ity of sublingual 00:00: UNDER THE [place] tablet 00 TONGUE Medical EVERY 5 Branch MINUTES NEEDED FOR CHEST PAIN. NITROGLYCER 2021-[id number] 1 [facility] IN 0.4 mg 0-24 TABLET ity of sublingual 00:00: UNDER THE [place] tablet 00 TONGUE Medical EVERY 5 Branch MINUTES NEEDED FOR CHEST PAIN. NITROGLYCER 2021-[id number] 1 [facility] IN 0.4 mg 0-24 TABLET ity of sublingual 00:00: UNDER THE [place] tablet 00 TONGUE Medical EVERY 5 Branch MINUTES NEEDED FOR CHEST PAIN. NITROGLYCER 2021-[id number] 1 [facility] IN 0.4 mg 0-24 TABLET ity of sublingual 00:00: UNDER THE [place] tablet 00 TONGUE Medical EVERY 5 Branch MINUTES NEEDED FOR CHEST PAIN. mesalamine 2021-11 Yes TAKE 4 Unive rs (APRISO) 0-24 CAPSULES ity of 0.375 gram 00:00: BY MOUTH [place] 24 hr 00 DAILY MD capsule [facility] mesalamine 2021-11 Yes TAKE 4 Unive rs (APRISO) 0-24 CAPSULES ity of 0.375 gram 00:00: BY MOUTH [place] 24 hr 00 DAILY MD capsule [facility] mesalamine 2021-11 Yes TAKE 4 Unive rs (APRISO) 0-24 CAPSULES ity of 0.375 gram 00:00: BY MOUTH [place] 24 hr 00 DAILY MD capsule [facility] 2021-11 Yes TAKE 4 Unive rs (APRISO) 0-24 CAPSULES ity of 0.375 gram 00:00: BY MOUTH [place] 24 hr 00 [facility] Unive rs (APRISO) 0-24 CAPSULES ity of 0.375 gram 00:00: BY MOUTH [place] 24 hr 00 DAILY MD capsule [facility] 2021-11 Yes TAKE 4 Unive rs (APRISO) 0-24 CAPSULES ity of 0.375 gram 00:00: BY MOUTH [place] 24 hr 00 DAILY MD capsule [facility] GABAPENTIN 2021-11 Yes [id number] TAKE 1 [facility] 600 mg 0-21 TABLET BY ity of tablet 00:00: MOUTH THREE Medical TIMES Branch DAILY GABAPENTIN 2021- Yes [id number] TAKE 1 [facility] 600 mg 0-21 TABLET BY ity of tablet 00:00: MOUTH THREE Medical TIMES Branch DAILY GABAPENTIN 2021- Yes [id number] TAKE 1 [facility] 600 mg 0-21 TABLET BY ity of tablet 00:00: MOUTH THREE Medical TIMES Branch DAILY GABAPENTIN 2021- Yes [id number] TAKE 1 [facility] 600 mg 0-21 TABLET BY ity of tablet 00:00: MOUTH THREE Medical TIMES Branch DAILY GABAPENTIN 2021- Yes [id number] TAKE 1 [facility] 600 mg 0-21 TABLET BY ity of tablet 00:00: MOUTH THREE Medical TIMES Branch DAILY GABAPENTIN 2021- Yes [id number] TAKE 1 [facility] 600 mg 0-21 TABLET BY ity of tablet 00:00: MOUTH THREE Medical TIMES Branch DAILY GABAPENTIN 2021- Yes [id number] TAKE 1 [facility] 600 mg 0-21 TABLET BY ity of tablet 00:00: MOUTH THREE Medical TIMES Branch DAILY GABAPENTIN 2021- Yes [id number] TAKE 1 [facility] 600 mg 0-21 TABLET BY ity of tablet 00:00: MOUTH THREE Medical TIMES Branch DAILY GABAPENTIN 2021- Yes [id number] TAKE 1 [facility] 600 mg 0-21 TABLET BY ity of tablet 00:00: MOUTH THREE Medical TIMES Branch DAILY GABAPENTIN 2021-11 Yes [id number] TAKE 1 [facility] 600 mg 0-21 TABLET BY ity of tablet 00:00: MOUTH [place] 00 THREE Medical TIMES Branch DAILY GABAPENTIN 2021-11 Yes [id number] TAKE 1 [facility] 600 mg 0-21 TABLET BY ity of tablet 00:00: MOUTH [place] 00 THREE Medical TIMES Branch DAILY GABAPENTIN 2021-11- No [id number] TAKE 1 [facility] 600 mg 0-21 11-17 TABLET BY ity of tablet 00:00: 00:00 MOUTH [place] 00 :00 THREE Medical TIMES Branch DAILY sucralfate 2021-11- No TAKE 1 Univ ers (CARAFATE) 0-20 02-14 TABLET BY ity of 1 g tablet 00:00: 00:00 MOUTH [place] 00 :00 TWICE MD DAILY [facility] sucralfate 2021-11- No TAKE 1 Univ ers (CARAFATE) 0-20 02-14 TABLET BY ity of 1 g tablet 00:00: 00:00 MOUTH [place] 00 :00 TWICE MD DAILY [facility] sucralfate 2021-11- No TAKE 1 Univ ers (CARAFATE) 0-20 02-14 TABLET BY ity of 1 g tablet 00:00: 00:00 MOUTH [place] 00 :00 TWICE MD DAILY [facility] sucralfate 2021-11- No TAKE 1 Univ ers (CARAFATE) 0-20 02-14 TABLET BY ity of 1 g tablet 00:00: 00:00 MOUTH [place] 00 :00 TWICE MD DAILY [facility] sucralfate 2021-11- No TAKE 1 Univ ers (CARAFATE) 0-20 02-14 TABLET BY ity of 1 g tablet 00:00: 00:00 MOUTH [place] 00 :00 TWICE MD DAILY [facility] sucralfate 2021-11- No TAKE 1 Univ ers (CARAFATE) 0-20 02-14 TABLET BY ity of 1 g tablet 00:00: 00:00 MOUTH [place] 00 :00 TWICE MD DAILY [facility] sucralfate 2021-11- No TAKE 1 Univ ers (CARAFATE) 0-20 02-14 TABLET BY ity of 1 g tablet 00:00: 00:00 MOUTH [place] 00 :00 TWICE MD DAILY [facility] HYDROcodone 2021-11 Yes 2745 1{tbl} [...] Pain. Indication s: chronic pain HYDROcodone 2021-11 2745 1{tbl} Take 1 U nivers -acetaminop [...] Indication s: chronic pain HYDRALAZINE 2021-11 Yes [id number] TAKE 1 [facility] 100 mg 0-05 TABLET BY ity of tablet 00:00: THREE Medical TIMES Branch DAILY HYDRALAZINE 2021-11 Yes [id number] TAKE 1 [facility] 100 mg 0-05 TABLET BY ity of tablet 00:00: THREE Medical TIMES Branch DAILY HYDRALAZINE 2021-11 Yes [id number] TAKE 1 [facility] 100 mg 0-05 TABLET BY ity of tablet 00:00: THREE Medical TIMES Branch DAILY HYDRALAZINE 2021-11 Yes [id number] TAKE 1 [facility] 100 mg 0-05 TABLET BY ity of tablet 00:00: THREE Medical TIMES Branch DAILY HYDRALAZINE 2021-11 Yes [id number] TAKE 1 [facility] 100 mg 0-05 TABLET BY ity of tablet 00:00: THREE Medical TIMES Branch DAILY HYDRALAZINE 2021-11 Yes [id number] TAKE 1 [facility] 100 mg 0-05 TABLET BY ity of tablet 00:00: THREE Medical TIMES Branch DAILY HYDRALAZINE 2021-11 Yes [id number] TAKE 1 [facility] 100 mg 0-05 TABLET BY ity of tablet 00:00: MOUTH THREE Medical TIMES Branch DAILY HYDRALAZINE 2021-11 Yes [id number] TAKE 1 [facility] 100 mg 0-05 TABLET BY ity of tablet 00:00: THREE Medical TIMES Branch DAILY HYDRALAZINE 2021-11 Yes [id number] TAKE 1 [facility] 100 mg 0-05 TABLET BY ity of tablet 00:00: THREE Medical TIMES Branch DAILY HYDRALAZINE 2021-11 Yes [id number] TAKE 1 [facility] 100 mg 0-05 TABLET BY ity of tablet 00:00: MOUTH [place] 00 THREE Medical TIMES Branch DAILY HYDRALAZINE 2021-11 Yes [id number] TAKE 1 [facility] 100 mg 0-05 TABLET BY ity of tablet 00:00: MOUTH [place] 00 THREE Medical TIMES Branch DAILY HYDRALAZINE 2021-11- No [id number] TAKE 1 [facility] 100 mg 0-05 11-03 [...] 00 Medical x 5/16 Syrg Branch GABAPENTIN 0 Yes [id number] TAKE 1 [facility] 600 mg 9-26 TABLET [...] x 5/16 Syrg Branch GABAPENTIN 2021-0 Yes [id number] TAKE 1 [facility] 600 mg 9-26 TABLET [...] x 5/16 Syrg Branch GABAPENTIN 2021-0 Yes [id number] TAKE 1 [facility] 600 mg 9-26 TABLET [...] x 5/16 Syrg Branch GABAPENTIN 2021-0 Yes [id number] TAKE 1 [facility] 600 mg 9-26 TABLET [...] y of DLE U-100 1 00:00: MEALS [facility] 31 gauge 00 Medical x 5/16 Syrg Branch INSULIN 2021-0 Yes USE TWICE Unive rs SYRINGE-NEE 9-26 DAILY WITH it y of DLE U-100 1 00:00: MEALS [facility] 31 gauge 00 Medical x 5/16 Syrg Branch INSULIN 2021-0 Yes USE TWICE Unive rs SYRINGE-NEE 9-26 DAILY WITH it y of DLE U-100 1 00:00: MEALS [facility] 31 gauge 00 Medical x 5/16 Syrg Branch INSULIN 2021-0 Yes USE TWICE Unive rs SYRINGE-NEE 9-26 DAILY WITH it y of DLE U-100 1 00:00: MEALS [facility] 31 gauge 00 Medical x 5/16 Syrg [...] by mouth ity of 00:00: in the [place] morning. Medical Branch INSULIN 2022-0 Yes USE TWICE Unive rs SYRINGE-NEE 9-26 DAILY WITH it y of DLE U-100 1 00:00: MEALS [place] mL 31 gauge 00 Medical x 5/16 Syrg Branch amLODIPine 2022-0 Yes 5mg Take 5 mg Un ally 5 mg tablet 9-26 by mouth ity of 00:00: in the [place] morning. Medical Branch INSULIN 2022-0 Yes USE TWICE Unive rs SYRINGE-NEE 9-26 DAILY WITH it y of DLE U-100 1 00:00: MEALS [facility] 31 gauge 00 Medical x 5/16 Syrg Branch amLODIPine 2022-0 Yes 5mg Take 5 mg Un ally 5 mg tablet 9-26 by mouth ity of 00:00: in the [place] morning. Medical Branch INSULIN 2022-0 Yes USE TWICE Unive rs SYRINGE-NEE 9-26 DAILY WITH it y of DLE U-100 1 00:00: MEALS [facility] 31 gauge 00 Medical x 5/16 Syrg Branch amLODIPine 2022-0 Yes 5mg Take 5 mg Un ally 5 mg tablet 9-26 by mouth ity of 00:00: in the [place] morning. Medical Branch INSULIN 2022-0 Yes USE TWICE Unive rs SYRINGE-NEE 9-26 DAILY WITH it y of DLE U-100 1 00:00: MEALS [facility] 31 gauge 00 Medical x 5/16 Syrg Branch amLODIPine 2022-0 Yes 5mg Take 5 mg Un ally 5 mg tablet 9-26 by mouth ity of 00:00: in the [place] morning. Medical Branch INSULIN 2022-0 Yes USE TWICE Unive rs SYRINGE-NEE 9-26 DAILY WITH it y of DLE U-100 1 00:00: MEALS [place] mL 31 gauge 00 Medical x 5/16 Syrg Branch amLODIPine 2022-0 Yes 5mg Take 5 mg Un ally 5 mg tablet 9-26 by mouth ity of 00:00: in the [place] morning. Medical Branch INSULIN 2022-0 Yes USE TWICE Unive rs SYRINGE-NEE 9-26 DAILY WITH it y of DLE U-100 1 00:00: MEALS [place] mL 31 gauge 00 Medical x 5/16 Syrg Branch amLODIPine 2022-0 Yes 5mg Take 5 mg Un ally 5 mg tablet 9-26 by mouth ity of 00:00: in the [place] morning. Medical Branch INSULIN 2022-0 Yes USE TWICE Unive rs SYRINGE-NEE 9-26 DAILY WITH it y of DLE U-100 1 00:00: MEALS [place] mL 31 gauge 00 Medical x 5/16 Syrg Branch amLODIPine 2022-0 Yes 5mg Take 5 mg Un ally 5 mg tablet 9-26 by mouth ity of 00:00: in the [place] morning. Medical Branch INSULIN 2022-0 Yes USE TWICE Unive rs SYRINGE-NEE 9-26 DAILY WITH it y of DLE U-100 1 00:00: MEALS [place] mL 31 gauge 00 Medical x 5/16 Syrg Branch amLODIPine 2-0 Yes 5mg Take 5 mg Un ally 5 mg tablet 9-26 by mouth ity of 00:00: in the [place] morning. Medical Branch INSULIN 2022-0 Yes USE TWICE Unive rs SYRINGE-NEE 9-26 DAILY WITH it y of DLE U-100 1 00:00: MEALS [place] mL 31 gauge 00 Medical x 5/16 Syrg Branch amLODIPine 2022-0 Yes 5mg Take 5 mg Un ally 5 mg tablet 9-26 by mouth ity of 00:00: in the [place] morning. Medical Branch INSULIN 2022-0 Yes USE TWICE Unive rs SYRINGE-NEE 9-26 DAILY WITH it y of DLE U-100 1 00:00: MEALS [place] mL 31 gauge 00 Medical x 5/16 Syrg Branch amLODIPine 2022-0 Yes 5mg Take 5 mg Un ally 5 mg tablet 9-26 by mouth ity of 00:00: in the [place] morning. Medical Branch INSULIN 2022-0 Yes USE TWICE Unive rs SYRINGE-NEE 9-26 DAILY WITH it y of DLE U-100 1 00:00: MEALS [place] mL 31 gauge 00 Medical x 5/16 Syrg Branch amLODIPine 2022-0 Yes 5mg Take 5 mg Un ally 5 mg tablet 9-26 by mouth ity of 00:00: in the [place] morning. Medical Branch INSULIN 2022-0 Yes USE TWICE Unive rs SYRINGE-NEE 9-26 DAILY WITH it y of DLE U-100 1 00:00: MEALS [place] mL 31 gauge 00 Medical x 5/16 Syrg Branch amLODIPine 2-0 Yes 5mg Take 5 mg Un ally 5 mg tablet 9-26 by mouth ity of 00:00: in the [place] morning. Medical Branch INSULIN 2-0 Yes USE TWICE Unive rs SYRINGE-NEE 9-26 DAILY WITH it y of DLE U-100 1 00:00: MEALS [place] mL 31 gauge 00 Medical x 5/16 Syrg Branch amLODIPine 2-0 Yes 5mg Take 5 mg Un ally 5 mg tablet 9-26 by mouth ity of 00:00: in the [place] morning. Medical Branch INSULIN 2-0 Yes USE TWICE Unive rs SYRINGE-NEE 9-26 DAILY WITH it y of DLE U-100 1 00:00: MEALS [place] mL 31 gauge 00 Medical x 5/16 Syrg Branch amLODIPine 2-0 Yes 5mg Take 5 mg Un ally 5 mg tablet 9-26 by mouth ity of 00:00: in the [place] morning. Medical Branch INSULIN 2-0 Yes USE TWICE Unive rs SYRINGE-NEE 9-26 DAILY WITH it y of DLE U-100 1 00:00: MEALS [place] mL 31 gauge 00 Medical x 5/16 Syrg Branch amLODIPine 2-0 Yes 5mg Take 1 Unive rs 5 mg tablet 9-26 tablet by ity of 00:00: mouth in [place] the Medical morning. Branch INSULIN 2-0 Yes USE TWICE Unive rs SYRINGE-NEE 9-26 DAILY WITH it y of DLE U-100 1 00:00: MEALS [place] mL 31 gauge 00 Medical x 5/16 Syrg Branch amLODIPine 2-0 Yes 5mg Take 1 Unive rs 5 mg tablet 9-26 tablet by ity of 00:00: mouth in [place] the Medical morning. Branch INSULIN 2-0 Yes USE TWICE Unive rs SYRINGE-NEE 9-26 DAILY WITH it y of DLE U-100 1 00:00: MEALS [place] mL 31 gauge 00 Medical x 5/16 Syrg Branch amLODIPine 2022-0 Yes 5mg Take 1 Unive rs 5 mg tablet 9-26 tablet by ity of 00:00: mouth in [place] 00 the Medical morning. Branch NITROGLYCER 2021- No PLACE 1 Un ally IN 0.4 mg 9-26 10-24 TABLET ity of sublingual 00:00: 00:00 UNDER THE [place] tablet 00 :00 TONGUE Medical EVERY 5 Branch MINUTES NEEDED FOR CHEST PAIN. GABAPENTIN 2021- No [id number] TAKE 1 [facility] 600 mg 9-26 10-21 TABLET BY ity of tablet 00:00: 00:00 MOUTH [place] 00 :00 THREE Medical TIMES Branch DAILY Motegrity 2 Yes TAKE 1 Univ ers mg tab 9-25 TABLET BY ity of 00:00: MOUTH DAILY MD Liane olivier [facility] Motegrity 2 Yes TAKE 1 Univ ers mg tab 9-25 TABLET BY ity of 00:00: MOUTH DAILY MD Liane olivier [facility] Motegrity 2 Yes TAKE 1 Univ ers mg tab 9-25 TABLET BY ity of 00:00: MOUTH DAILY MD Liane [facility] Motegrity 2 Yes TAKE 1 Univ ers mg tab 9-25 TABLET BY ity of 00:00: MOUTH DAILY MD Liane olivier [facility] Motegrity 2 Yes TAKE 1 Univ ers mg tab 9-25 TABLET BY ity of 00:00: MOUTH DAILY MD Liane olivier [facility] Motegrity 2 Yes TAKE 1 Univ ers mg tab 9-25 TABLET BY ity of 00:00: MOUTH DAILY MD Liane olivier [facility] Motegrity 2 Yes TAKE 1 Univ ers mg tab 9-25 TABLET BY ity of 00:00: MOUTH DAILY MD Liane olivier [facility] COLCHICINE Yes [id number] .6mg TAKE 1 U nivers 0.6 mg 9-19 TABLET BY ity of tablet 00:00: MOUTH [place] DAILY Medical Branch COLCHICINE Yes [id number] .6mg TAKE 1 U nivers 0.6 mg 9-19 TABLET BY ity of tablet 00:00: MOUTH DAILY Medical Branch COLCHICINE 2022-0 Yes [id number] .6mg TAKE 1 U nivers 0.6 mg 9-19 TABLET BY ity of tablet 00:00: MOUTH [place] DAILY Medical Branch COLCHICINE 2022-0 Yes [id number] .6mg TAKE 1 U nivers 0.6 mg 9-19 TABLET BY ity of tablet 00:00: MOUTH [place] DAILY Medical Branch COLCHICINE 2022-0 Yes [id number] .6mg TAKE 1 U nivers 0.6 mg 9-19 TABLET BY ity of tablet 00:00: MOUTH [place] DAILY Medical Branch COLCHICINE 2022-0 Yes [id number] .6mg TAKE 1 U nivers 0.6 mg 9-19 TABLET BY ity of tablet 00:00: [facility] DAILY Medical Branch COLCHICINE 2022-0 Yes [id number] .6mg TAKE 1 U nivers 0.6 mg 9-19 TABLET BY ity of tablet 00:00: [facility] DAILY Medical Branch COLCHICINE 2022-0 Yes [id number] .6mg TAKE 1 U nivers 0.6 mg 9-19 TABLET BY ity of tablet 00:00: [facility] DAILY Medical Branch COLCHICINE 2022-0 Yes [id number] .6mg TAKE 1 U nivers 0.6 mg 9-19 TABLET BY ity of tablet 00:00: [facility] DAILY Medical Branch COLCHICINE 2022-0 Yes [id number] .6mg TAKE 1 U nivers 0.6 mg 9-19 TABLET BY ity of tablet 00:00: [facility] DAILY Medical Branch COLCHICINE 2022-0 Yes [id number] .6mg TAKE 1 U nivers 0.6 mg 9-19 TABLET BY ity of tablet 00:00: [facility] DAILY Medical Branch COLCHICINE 2022-0 Yes [id number] .6mg TAKE 1 U nivers 0.6 mg 9-19 TABLET BY ity of tablet 00:00: [facility] DAILY Medical Branch COLCHICINE 2022-0 Yes [id number] .6mg TAKE 1 U nivers 0.6 mg 9-19 TABLET BY ity of tablet 00:00: MOUTH [place] DAILY Medical Branch COLCHICINE 2022-0 Yes [id number] .6mg TAKE 1 U nivers 0.6 mg 9-19 TABLET BY ity of tablet 00:00: [facility] DAILY Medical Branch COLCHICINE 2022-0 Yes [id number] .6mg TAKE 1 U nivers 0.6 mg 9-19 TABLET BY ity of tablet 00:00: MOUTH [place] DAILY Medical Branch COLCHICINE 2022-0 Yes [id number] .6mg TAKE 1 U nivers 0.6 mg 9-19 TABLET BY ity of tablet 00:00: MOUTH [place] DAILY Medical Branch COLCHICINE 2022-0 Yes [id number] .6mg TAKE 1 U nivers 0.6 mg 9-19 TABLET BY ity of tablet 00:00: [facility] DAILY Medical Branch COLCHICINE 2022-0 Yes [id number] .6mg TAKE 1 U nivers 0.6 mg 9-19 TABLET BY ity of tablet 00:00: [facility] DAILY Medical Branch COLCHICINE 2022-0 Yes [id number] .6mg TAKE 1 U nivers 0.6 mg 9-19 TABLET BY ity of tablet 00:00: [facility] DAILY Medical Branch COLCHICINE 2022-0 Yes [id number] .6mg TAKE 1 U nivers 0.6 mg 9-19 TABLET BY ity of tablet 00:00: [facility] DAILY Medical Branch COLCHICINE 2022-0 Yes [id number] .6mg TAKE 1 U nivers 0.6 mg 9-19 TABLET BY ity of tablet 00:00: [facility] DAILY Medical Branch COLCHICINE 2022-0 Yes [id number] .6mg TAKE 1 U nivers 0.6 mg 9-19 TABLET BY ity of tablet 00:00: [facility] DAILY Medical Branch COLCHICINE 2022-0 Yes [id number] .6mg TAKE 1 U nivers 0.6 mg 9-19 TABLET BY ity of tablet 00:00: [facility] DAILY Medical Branch COLCHICINE 2022-0 Yes [id number] .6mg TAKE 1 U nivers 0.6 mg 9-19 TABLET BY ity of tablet 00:00: [facility] DAILY Medical Branch COLCHICINE 2022-0 Yes [id number] .6mg TAKE 1 U nivers 0.6 mg 9-19 TABLET BY ity of tablet 00:00: [facility] DAILY Medical Branch COLCHICINE 2022-0 Yes [id number] .6mg TAKE 1 U nivers 0.6 mg 9-19 TABLET BY ity of tablet 00:00: [facility] DAILY Medical Branch COLCHICINE 2022-0 Yes [id number] .6mg TAKE 1 U nivers 0.6 mg 9-19 TABLET BY ity of tablet 00:00: MOUTH [place] 00 DAILY Medical Branch COLCHICINE 2022-0 Yes [id number] .6mg TAKE 1 U nivers 0.6 mg 9-19 TABLET BY ity of tablet 00:00: MOUTH [place] 00 DAILY Medical Branch COLCHICINE 2022-0 Yes [id number] .6mg TAKE 1 U nivers 0.6 mg 9-19 TABLET BY ity of tablet 00:00: MOUTH [place] 00 DAILY Medical Branch COLCHICINE 2022-0 Yes [id number] .6mg TAKE 1 U nivers 0.6 mg 9-19 TABLET BY ity of tablet 00:00: MOUTH [place] 00 DAILY Medical Branch COLCHICINE 2022-0 Yes [id number] .6mg TAKE 1 U nivers 0.6 mg 9-19 TABLET BY ity of tablet 00:00: MOUTH [place] 00 DAILY Medical Branch COLCHICINE 2022-0 2023- No [id number] .6mg TAKE 1 Univers 0.6 mg 9-19 [...] Indication s: chronic pain HYDRALAZINE 2021-0 Yes [id number] TAKE 1 Univers 100 mg 9-06 TABLET BY ity of tablet 00:00: MOUTH [place] 00 THREE Medical TIMES Branch DAILY HYDRALAZINE 2021-0 Yes [id number] TAKE 1 Univers 100 mg 9-06 TABLET BY ity of tablet 00:00: MOUTH [place] 00 THREE Medical TIMES Branch DAILY HYDRALAZINE 2021-0 Yes [id number] TAKE 1 Univers 100 mg 9-06 TABLET BY ity of tablet 00:00: MOUTH [place] 00 THREE Medical TIMES Branch DAILY HYDRALAZINE 2021-0 Yes [id number] TAKE 1 Univers 100 mg 9-06 TABLET BY ity of tablet 00:00: MOUTH [place] 00 THREE Medical TIMES Branch DAILY HYDRALAZINE 2021-0 Yes [id number] TAKE 1 Univers 100 mg 9-06 TABLET BY ity of tablet 00:00: MOUTH [place] 00 THREE Medical TIMES Branch DAILY HYDRALAZINE 2021-0 Yes [id number] TAKE 1 Univers 100 mg 9-06 TABLET BY ity of tablet 00:00: MOUTH [place] 00 THREE Medical TIMES Branch DAILY HYDRALAZINE 2021-0 2021- No [id number] TAKE 1 Univers 100 mg 9-06 10-05 TABLET BY ity of tablet 00:00: 00:00 MOUTH [place] 00 :00 THREE Medical TIMES Branch DAILY GABAPENTIN 2021-0 Yes [id number] TAKE 1 Univers 600 mg 8-31 TABLET BY ity of tablet 00:00: MOUTH [place] 00 THREE Medical TIMES Branch DAILY GABAPENTIN 2021-0 Yes [id number] TAKE 1 Univers 600 mg 8-31 TABLET BY ity of tablet 00:00: MOUTH [place] 00 THREE Medical TIMES Branch DAILY GABAPENTIN 2021-0 Yes [id number] TAKE 1 Univers 600 mg 8-31 TABLET BY ity of tablet 00:00: MOUTH [place] 00 THREE Medical TIMES Branch DAILY GABAPENTIN 2021-0 Yes [id number] TAKE 1 Univers 600 mg 8-31 TABLET BY ity of tablet 00:00: MOUTH [place] 00 THREE Medical TIMES Branch DAILY GABAPENTIN 2021-0 2- No [id number] TAKE 1 Univers 600 mg 8-31 - [...] 00 :00 TWICE Medical DAILY Branch LISINOPRIL 0 Yes [id number] TAKE 1/2 Univers 40 mg 8-08 TABLET [...] Indication s: chronic pain LISINOPRIL 2022-0 Yes [id number] TAKE 1/2 Univers 40 mg 8-08 TABLET BY ity of tablet 00:00: MOUTH [place] 00 TWICE Medical DAILY Branch HYDROcodone 2022-0 Yes [id number] 1{tbl} Take 1 Un ally -acetaminop 8-08 tablet by ity of hen 7.5-325 00:00: mouth [place] mg per 00 every 6 Medical tablet (six) Branch hours as needed for Pain. Indication s: chronic pain LISINOPRIL 2-0 Yes [id number] TAKE 1/2 Univers 40 mg 8-08 TABLET BY ity of tablet 00:00: MOUTH [place] 00 TWICE Medical DAILY Branch HYDROcodone 2-0 Yes [id number] 1{tbl} Take 1 Un ally -acetaminop 8-08 tablet by ity of hen 7.5-325 00:00: mouth [place] mg per 00 every 6 Medical tablet (six) Branch hours as needed for Pain. Indication s: chronic pain LISINOPRIL 2-0 Yes [id number] TAKE 1/2 Univers 40 mg 8-08 TABLET BY ity of tablet 00:00: MOUTH [place] 00 TWICE Medical DAILY Branch LISINOPRIL 2-0 Yes [id number] TAKE 1/2 Univers 40 mg 8-08 TABLET BY ity of tablet 00:00: MOUTH [place] 00 TWICE Medical DAILY Branch LISINOPRIL 2022-0 Yes [id number] TAKE 1/2 Univers 40 mg 8-08 TABLET BY ity of tablet 00:00: MOUTH [place] 00 TWICE Medical DAILY Branch LISINOPRIL 2022-0 Yes [id number] TAKE 1/2 Univers 40 mg 8-08 TABLET BY ity of tablet 00:00: MOUTH [place] 00 TWICE Medical DAILY Branch LISINOPRIL 2022-0 Yes [id number] TAKE 1/2 Univers 40 mg 8-08 TABLET BY ity of tablet 00:00: MOUTH [place] 00 TWICE Medical DAILY Branch LISINOPRIL 2-0 Yes [id number] TAKE 1/2 Univers 40 mg 8-08 TABLET BY ity of tablet 00:00: MOUTH 00 TWICE Medical DAILY Branch LISINOPRIL 2022-0 Yes [id number] TAKE 1/2 Univers 40 mg 8-08 TABLET BY ity of tablet 00:00: MOUTH TWICE Medical DAILY Branch LISINOPRIL 2022-0 Yes [id number] TAKE 1/2 Univers 40 mg 8-08 TABLET BY ity of tablet 00:00: MOUTH TWICE Medical DAILY Branch LISINOPRIL 2022-0 Yes [id number] TAKE 1/2 Univers 40 mg 8-08 TABLET BY ity of tablet 00:00: MOUTH TWICE Medical DAILY Branch LISINOPRIL 2022-0 Yes [id number] TAKE 1/2 Univers 40 mg 8-08 TABLET BY ity of tablet 00:00: MOUTH TWICE Medical DAILY Branch LISINOPRIL 2022-0 Yes [id number] TAKE 1/2 Univers 40 mg 8-08 TABLET BY ity of tablet 00:00: MOUTH TWICE Medical DAILY Branch LISINOPRIL 2022-0 Yes [id number] TAKE 1/2 Univers 40 mg 8-08 TABLET BY ity of tablet 00:00: MOUTH TWICE Medical DAILY Branch LISINOPRIL 2022-0 Yes [id number] TAKE 1/2 Univers 40 mg 8-08 TABLET BY ity of tablet 00:00: MOUTH TWICE Medical DAILY Branch LISINOPRIL 2022-0 Yes [id number] TAKE 1/2 Univers 40 mg 8-08 TABLET BY ity of tablet 00:00: MOUTH TWICE Medical DAILY Branch LISINOPRIL 2022-0 Yes [id number] TAKE 1/2 Univers 40 mg 8-08 TABLET BY ity of tablet 00:00: MOUTH TWICE Medical DAILY Branch LISINOPRIL 2022-0 Yes [id number] TAKE 1/2 Univers 40 mg 8-08 TABLET BY ity of tablet 00:00: MOUTH TWICE Medical DAILY Branch LISINOPRIL 2022-0 Yes [id number] TAKE 1/2 Univers 40 mg 8-08 TABLET BY ity of tablet 00:00: MOUTH TWICE Medical DAILY Branch LISINOPRIL 2022-0 2- No [id number] TAKE 1/2 Univers 40 mg 8-08 - [...] Pain. Indication s: chronic pain HUMULIN Yes [id number] ADMINISTER Univers 70/30 U-100 8-03 70 UNITS ity of INSULIN 100 00:00: UNDER THE [place] unit/mL 00 SKIN EVERY Medica l (70-30) MORNING Branch suspension THEN ADMINISTER 60 UNITS UNDER THE SKIN EVERY EVENING HUMULIN Yes [id number] ADMINISTER Univers 70/30 U-100 8-03 70 UNITS ity of INSULIN 100 00:00: UNDER THE [place] unit/mL 00 SKIN EVERY Medica l (70-30) MORNING Branch suspension THEN ADMINISTER 60 UNITS UNDER THE SKIN EVERY EVENING GABAPENTIN Yes [id number] TAKE 1 Univers 600 mg 8-03 TABLET BY ity of tablet 00:00: MOUTH THREE Medical TIMES Branch DAILY HUMULIN Yes [id number] ADMINISTER Univers 70/30 U-100 8-03 70 UNITS ity of INSULIN 100 00:00: UNDER THE [place] unit/mL 00 SKIN EVERY Medica l (70-30) MORNING Branch suspension THEN ADMINISTER 60 UNITS UNDER THE SKIN EVERY EVENING GABAPENTIN Yes [id number] TAKE 1 Univers 600 mg 8-03 TABLET BY ity of tablet 00:00: MOUTH THREE Medical TIMES Branch DAILY HUMULIN Yes [id number] ADMINISTER Univers 70/30 U-100 8-03 70 UNITS ity of INSULIN 100 00:00: UNDER THE [place] unit/mL 00 SKIN EVERY Medica l (70-30) MORNING Branch suspension THEN ADMINISTER 60 UNITS UNDER THE SKIN EVERY EVENING GABAPENTIN Yes [id number] TAKE 1 Univers 600 mg 8-03 TABLET BY ity of tablet 00:00: MOUTH THREE Medical TIMES Branch DAILY HUMULIN Yes [id number] ADMINISTER Univers 70/30 U-100 8-03 70 UNITS ity of INSULIN 100 00:00: UNDER THE [place] unit/mL 00 SKIN EVERY Medica l (70-30) MORNING Branch suspension THEN ADMINISTER 60 UNITS UNDER THE SKIN EVERY EVENING GABAPENTIN Yes [id number] TAKE 1 Univers 600 mg 06-03 TABLET BY ity of tablet 00:00: MOUTH [place] 00 THREE Medical TIMES Branch DAILY HUMULIN Yes [id number] ADMINISTER Univers 70/30 U-100 8-03 70 UNITS ity of INSULIN 100 00:00: UNDER THE [place] unit/mL 00 SKIN EVERY Medica l (70-30) MORNING Branch suspension THEN ADMINISTER 60 UNITS UNDER THE SKIN EVERY EVENING HUMULIN Yes [id number] ADMINISTER Univers 70/30 U-100 8- 70 UNITS ity of INSULIN 100 00:00: UNDER THE [place] unit/mL 00 SKIN EVERY Medica l (70-30) MORNING Branch suspension THEN ADMINISTER 60 UNITS UNDER THE SKIN EVERY EVENING HUMULIN Yes [id number] ADMINISTER Univers 70/30 U-100 8- 70 UNITS ity of INSULIN 100 00:00: UNDER THE [place] unit/mL 00 SKIN EVERY Medica l (70-30) MORNING Branch suspension THEN ADMINISTER 60 UNITS UNDER THE SKIN EVERY EVENING HUMULIN Yes [id number] ADMINISTER Univers 70/30 U-100 8- 70 UNITS ity of INSULIN 100 00:00: UNDER THE [place] unit/mL 00 SKIN EVERY Medica l (70-30) MORNING Branch suspension THEN ADMINISTER 60 UNITS UNDER THE SKIN EVERY EVENING HUMULIN Yes [id number] ADMINISTER Univers 70/30 U-100 8- 70 UNITS ity of INSULIN 100 00:00: UNDER THE [place] unit/mL 00 SKIN EVERY Medica l (70-30) MORNING Branch suspension THEN ADMINISTER 60 UNITS UNDER THE SKIN EVERY EVENING HUMULIN Yes [id number] ADMINISTER Univers 70/30 U-100 8- 70 UNITS ity of INSULIN 100 00:00: UNDER THE [place] unit/mL 00 SKIN EVERY Medica l (70-30) MORNING Branch suspension THEN ADMINISTER 60 UNITS UNDER THE SKIN EVERY EVENING HUMULIN Yes [id number] ADMINISTER Univers 70/30 U-100 8-03 70 UNITS ity of INSULIN 100 00:00: UNDER THE [place] unit/mL 00 SKIN EVERY Medica l (70-30) MORNING Branch suspension THEN ADMINISTER 60 UNITS UNDER THE SKIN EVERY EVENING HUMULIN Yes [id number] ADMINISTER Univers 70/30 U-100 8-03 70 UNITS ity of INSULIN 100 00:00: UNDER THE [place] unit/mL 00 SKIN EVERY Medica l (70-30) MORNING Branch suspension THEN ADMINISTER 60 UNITS UNDER THE SKIN EVERY EVENING HUMULIN Yes [id number] ADMINISTER Univers 70/30 U-100 8-03 70 UNITS ity of INSULIN 100 00:00: UNDER THE [place] unit/mL 00 SKIN EVERY Medica l (70-30) MORNING Branch suspension THEN ADMINISTER 60 UNITS UNDER THE SKIN EVERY EVENING HUMULIN Yes [id number] ADMINISTER Univers 70/30 U-100 8- 70 UNITS ity of INSULIN 100 00:00: UNDER THE [place] unit/mL 00 SKIN EVERY Medica l (70-30) MORNING Branch suspension THEN ADMINISTER 60 UNITS UNDER THE SKIN EVERY EVENING HUMULIN Yes [id number] ADMINISTER Univers 70/30 U-100 8- 70 UNITS ity of INSULIN 100 00:00: UNDER THE [place] unit/mL 00 SKIN EVERY Medica l (70-30) MORNING Branch suspension THEN ADMINISTER 60 UNITS UNDER THE SKIN EVERY EVENING HUMULIN Yes [id number] ADMINISTER Univers 70/30 U-100 8- 70 UNITS ity of INSULIN 100 00:00: UNDER THE [place] unit/mL 00 SKIN EVERY Medica l (70-30) MORNING Branch suspension THEN ADMINISTER 60 UNITS UNDER THE SKIN EVERY EVENING HUMULIN Yes [id number] ADMINISTER Univers 70/30 U-100 8- 70 UNITS ity of INSULIN 100 00:00: UNDER THE [place] unit/mL 00 SKIN EVERY Medica l (70-30) MORNING Branch suspension THEN ADMINISTER 60 UNITS UNDER THE SKIN EVERY EVENING HUMULIN Yes [id number] ADMINISTER Univers 70/30 U-100 8- 70 UNITS ity of INSULIN 100 00:00: UNDER THE [place] unit/mL 00 SKIN EVERY Medica l (70-30) MORNING Branch suspension THEN ADMINISTER 60 UNITS UNDER THE SKIN EVERY EVENING HUMULIN Yes [id number] ADMINISTER Univers 70/30 U-100 8-03 70 UNITS ity of INSULIN 100 00:00: UNDER THE [place] unit/mL 00 SKIN EVERY Medica l (70-30) MORNING Branch suspension THEN ADMINISTER 60 UNITS UNDER THE SKIN EVERY EVENING HUMULIN Yes [id number] ADMINISTER Univers 70/30 U-100 8-03 70 UNITS ity of INSULIN 100 00:00: UNDER THE [place] unit/mL 00 SKIN EVERY Medica l (70-30) MORNING Branch suspension THEN ADMINISTER 60 UNITS UNDER THE SKIN EVERY EVENING HUMULIN Yes [id number] ADMINISTER Univers 70/30 U-100 8-03 70 UNITS ity of INSULIN 100 00:00: UNDER THE [place] unit/mL 00 SKIN EVERY Medica l (70-30) MORNING Branch suspension THEN ADMINISTER 60 UNITS UNDER THE SKIN EVERY EVENING HUMULIN Yes [id number] ADMINISTER Univers 70/30 U-100 8- 70 UNITS ity of INSULIN 100 00:00: UNDER THE [place] unit/mL 00 SKIN EVERY Medica l (70-30) MORNING Branch suspension THEN ADMINISTER 60 UNITS UNDER THE SKIN EVERY EVENING HUMULIN Yes [id number] ADMINISTER Univers 70/30 U-100 8- 70 UNITS ity of INSULIN 100 00:00: UNDER THE [place] unit/mL 00 SKIN EVERY Medica l (70-30) MORNING Branch suspension THEN ADMINISTER 60 UNITS UNDER THE SKIN EVERY EVENING HUMULIN Yes [id number] ADMINISTER Univers 70/30 U-100 8- 70 UNITS ity of INSULIN 100 00:00: UNDER THE [place] unit/mL 00 SKIN EVERY Medica l (70-30) MORNING Branch suspension THEN ADMINISTER 60 UNITS UNDER THE SKIN EVERY EVENING HUMULIN Yes [id number] ADMINISTER Univers 70/30 U-100 8- 70 UNITS ity of INSULIN 100 00:00: UNDER THE [place] unit/mL 00 SKIN EVERY Medica l (70-30) MORNING Branch suspension THEN ADMINISTER 60 UNITS UNDER THE SKIN EVERY EVENING HUMULIN Yes [id number] ADMINISTER Univers 70/30 U-100 8- 70 UNITS ity of INSULIN 100 00:00: UNDER THE [place] unit/mL 00 SKIN EVERY Medica l (70-30) MORNING Branch suspension THEN ADMINISTER 60 UNITS UNDER THE SKIN EVERY EVENING HUMULIN Yes [id number] ADMINISTER Univers 70/30 U-100 8-03 70 UNITS ity of INSULIN 100 00:00: UNDER THE [place] unit/mL 00 SKIN EVERY Medica l (70-30) MORNING Branch suspension THEN ADMINISTER 60 UNITS UNDER THE SKIN EVERY EVENING HUMULIN Yes [id number] ADMINISTER Univers 70/30 U-100 8-03 70 UNITS ity of INSULIN 100 00:00: UNDER THE [place] unit/mL 00 SKIN EVERY Medica l (70-30) MORNING Branch suspension THEN ADMINISTER 60 UNITS UNDER THE SKIN EVERY EVENING HUMULIN Yes [id number] ADMINISTER Univers 70/30 U-100 8-03 70 UNITS ity of INSULIN 100 00:00: UNDER THE [place] unit/mL 00 SKIN EVERY Medica l (70-30) MORNING Branch suspension THEN ADMINISTER 60 UNITS UNDER THE SKIN EVERY EVENING HUMULIN Yes [id number] ADMINISTER Univers 70/30 U-100 8-03 70 UNITS ity of INSULIN 100 00:00: UNDER THE [place] unit/mL 00 SKIN EVERY Medica l (70-30) MORNING Branch suspension THEN ADMINISTER 60 UNITS UNDER THE SKIN EVERY EVENING HUMULIN Yes [id number] ADMINISTER Univers 70/30 U-100 8-03 70 UNITS ity of INSULIN 100 00:00: UNDER THE [place] unit/mL 00 SKIN EVERY Medica l (70-30) MORNING Branch suspension THEN ADMINISTER 60 UNITS UNDER THE SKIN EVERY EVENING HUMULIN Yes [id number] ADMINISTER Univers 70/30 U-100 8-03 70 UNITS ity of INSULIN 100 00:00: UNDER THE [place] unit/mL 00 SKIN EVERY Medica l (70-30) MORNING Branch suspension THEN ADMINISTER 60 UNITS UNDER THE SKIN EVERY EVENING HUMULIN Yes [id number] ADMINISTER Univers 70/30 U-100 8-03 70 UNITS ity of INSULIN 100 00:00: UNDER THE [place] unit/mL 00 SKIN EVERY Medica l (70-30) MORNING Branch suspension THEN ADMINISTER 60 UNITS UNDER THE SKIN EVERY EVENING HUMULIN Yes [id number] ADMINISTER Univers 70/30 U-100 8-03 70 UNITS ity of INSULIN 100 00:00: UNDER THE [place] unit/mL 00 SKIN EVERY Medica l (70-30) MORNING Branch suspension THEN ADMINISTER 60 UNITS UNDER THE SKIN EVERY EVENING HUMULIN Yes [id number] ADMINISTER Univers 70/30 U-100 8-03 70 UNITS ity of INSULIN 100 00:00: UNDER THE [place] unit/mL 00 SKIN EVERY Medica l (70-30) MORNING Branch suspension THEN ADMINISTER 60 UNITS UNDER THE SKIN EVERY EVENING HUMULIN Yes [id number] ADMINISTER Univers 70/30 U-100 8-03 70 UNITS ity of INSULIN 100 00:00: UNDER THE [place] unit/mL 00 SKIN EVERY Medica l (70-30) MORNING Branch suspension THEN ADMINISTER 60 UNITS UNDER THE SKIN EVERY EVENING HUMULIN Yes [id number] ADMINISTER Univers 70/30 U-100 8-03 70 UNITS ity of INSULIN 100 00:00: UNDER THE [place] unit/mL 00 SKIN EVERY Medica l (70-30) MORNING Branch suspension THEN ADMINISTER 60 UNITS UNDER THE SKIN EVERY EVENING HUMULIN Yes [id number] ADMINISTER Univers 70/30 U-100 8-03 70 UNITS ity of INSULIN 100 00:00: UNDER THE [place] unit/mL 00 SKIN EVERY Medica l (70-30) MORNING Branch suspension THEN ADMINISTER 60 UNITS UNDER THE SKIN EVERY EVENING HUMULIN Yes [id number] ADMINISTER Univers 70/30 U-100 8-03 70 UNITS ity of INSULIN 100 00:00: UNDER THE [place] unit/mL 00 SKIN EVERY Medica l (70-30) MORNING Branch suspension THEN ADMINISTER 60 UNITS UNDER THE SKIN EVERY EVENING HUMULIN Yes [id number] ADMINISTER Univers 70/30 U-100 8-03 70 UNITS ity of INSULIN 100 00:00: UNDER THE [place] unit/mL 00 SKIN EVERY Medica l (70-30) MORNING Branch suspension THEN ADMINISTER 60 UNITS UNDER THE SKIN EVERY EVENING HUMULIN Yes [id number] ADMINISTER Univers 70/30 U-100 8-03 70 UNITS ity of INSULIN 100 00:00: UNDER THE [place] unit/mL 00 SKIN EVERY Medica l (70-30) MORNING Branch suspension THEN ADMINISTER 60 UNITS UNDER THE SKIN EVERY EVENING HUMULIN Yes [id number] ADMINISTER Univers 70/30 U-100 8-03 70 UNITS ity of INSULIN 100 00:00: UNDER THE [place] unit/mL 00 SKIN EVERY Medica l (70-30) MORNING Branch suspension THEN ADMINISTER 60 UNITS UNDER THE SKIN EVERY EVENING HUMULIN Yes [id number] ADMINISTER [facility] 70/30 U-100 8-03 70 UNITS ity of INSULIN 100 00:00: UNDER THE [place] unit/mL 00 SKIN EVERY Medica l (70-30) MORNING Branch suspension THEN ADMINISTER 60 UNITS UNDER THE SKIN EVERY EVENING HUMULIN Yes [id number] ADMINISTER [facility] 70/30 U-100 06-03 70 UNITS ity of INSULIN 100 00:00: UNDER THE [place] unit/mL 00 SKIN EVERY Medica l (70-30) MORNING Branch suspension THEN ADMINISTER 60 UNITS UNDER THE SKIN EVERY EVENING HUMULIN Yes [id number] ADMINISTER Univers 70/30 U-100 8- 70 UNITS ity of INSULIN 100 00:00: UNDER THE [place] unit/mL 00 SKIN EVERY Medica l (70-30) MORNING Branch suspension THEN ADMINISTER 60 UNITS UNDER THE SKIN EVERY EVENING HUMULIN Yes [id number] ADMINISTER Univers 70/30 U-100 8- 70 UNITS ity of INSULIN 100 00:00: UNDER THE [place] unit/mL 00 SKIN EVERY Medica l (70-30) MORNING Branch suspension THEN ADMINISTER 60 UNITS UNDER THE SKIN EVERY EVENING HUMULIN Yes [id number] ADMINISTER [facility] 70/30 U-100 - 70 UNITS ity of INSULIN 100 00:00: UNDER THE [place] unit/mL 00 SKIN EVERY Medica l (70-30) MORNING Branch suspension THEN ADMINISTER 60 UNITS UNDER THE SKIN EVERY EVENING GABAPENTIN 2021- No [id number] TAKE 1 [facility] 600 mg 06-03 TABLET BY ity of tablet 00:00: 00:00 MOUTH [place] 00 :00 THREE Medical TIMES Branch DAILY HYDROCHLORO 0 Yes [id number] 12.5mg TAKE 1 Univers THIAZIDE 7-18 CAPSULE BY ity o f 12.5 mg 00:00: MOUTH [place] capsule 00 DAILY Medical Branch HYDROCHLORO 2021-0 Yes [id number] 12.5mg TAKE 1 [facility] THIAZIDE 7-18 CAPSULE BY ity o f 12.5 mg 00:00: MOUTH [place] capsule 00 DAILY Medical Branch HYDROCHLORO 2021-0 Yes [id number] 12.5mg TAKE 1 [facility] THIAZIDE 7-18 CAPSULE BY ity o f 12.5 mg 00:00: MOUTH [place] capsule 00 DAILY Medical Branch HYDROCHLORO 2021-0 Yes [id number] 12.5mg TAKE 1 [facility] THIAZIDE 7-18 CAPSULE BY ity o f 12.5 mg 00:00: MOUTH [place] capsule 00 DAILY Medical Branch HYDROCHLORO 2021-0 Yes [id number] 12.5mg TAKE 1 [facility] THIAZIDE 7-18 CAPSULE BY ity o f 12.5 mg 00:00: MOUTH [place] capsule 00 DAILY Medical Branch HYDROCHLORO 2022-0 Yes [id number] 12.5mg TAKE 1 [facility] THIAZIDE 7-18 CAPSULE BY ity o f 12.5 mg 00:00: MOUTH [place] capsule 00 DAILY Medical Branch HYDROCHLORO 2022-0 Yes [id number] 12.5mg TAKE 1 [facility] THIAZIDE 7-18 CAPSULE BY ity o f 12.5 mg 00:00: MOUTH [place] capsule 00 DAILY Medical Branch HYDROCHLORO 2022-0 Yes [id number] 12.5mg TAKE 1 [facility] THIAZIDE 7-18 CAPSULE BY ity o f 12.5 mg 00:00: MOUTH [place] capsule 00 DAILY Medical Branch HYDROCHLORO 2022-0 Yes [id number] 12.5mg TAKE 1 [facility] THIAZIDE 7-18 CAPSULE BY ity o f 12.5 mg 00:00: MOUTH [place] capsule 00 DAILY Medical Branch HYDROCHLORO 2022-0 Yes [id number] 12.5mg TAKE 1 [facility] THIAZIDE 7-18 CAPSULE BY ity o f 12.5 mg 00:00: MOUTH [place] capsule 00 DAILY Medical Branch HYDROCHLORO 2022-0 Yes [id number] 12.5mg TAKE 1 [facility] THIAZIDE 7-18 CAPSULE BY ity o f 12.5 mg 00:00: MOUTH [place] capsule 00 DAILY Medical Branch HYDROCHLORO 2022-0 Yes [id number] 12.5mg TAKE 1 [facility] THIAZIDE 7-18 CAPSULE BY ity o f 12.5 mg 00:00: MOUTH [place] capsule 00 DAILY Medical Branch HYDROCHLORO 2022-0 Yes [id number] 12.5mg TAKE 1 [facility] THIAZIDE 7-18 CAPSULE BY ity o f 12.5 mg 00:00: MOUTH [place] capsule 00 DAILY Medical Branch HYDROCHLORO 2022-0 Yes [id number] 12.5mg TAKE 1 [facility] THIAZIDE 7-18 CAPSULE BY ity o f 12.5 mg 00:00: MOUTH [place] capsule 00 DAILY Medical Branch HYDROCHLORO 2022-0 Yes [id number] 12.5mg TAKE 1 [facility] THIAZIDE 7-18 CAPSULE BY ity o f 12.5 mg 00:00: MOUTH [place] capsule 00 DAILY Medical Branch HYDROCHLORO 2022-0 Yes [id number] 12.5mg TAKE 1 [facility] THIAZIDE 7-18 CAPSULE BY ity o f 12.5 mg 00:00: MOUTH [place] capsule 00 DAILY Medical Branch HYDROCHLORO 2022-0 Yes [id number] 12.5mg TAKE 1 [facility] THIAZIDE 7-18 CAPSULE BY ity o f 12.5 mg 00:00: MOUTH [place] capsule 00 DAILY [facility] HYDROCHLORO 2022-0 Yes [id number] 12.5mg TAKE 1 [facility] THIAZIDE 7-18 CAPSULE BY ity o f 12.5 mg 00:00: MOUTH [place] capsule 00 DAILY [facility] HYDROCHLORO 2022-0 Yes [id number] 12.5mg TAKE 1 [facility] THIAZIDE 7-18 CAPSULE BY ity o f 12.5 mg 00:00: MOUTH [place] capsule 00 DAILY [facility] HYDROCHLORO 2022-0 Yes [id number] 12.5mg TAKE 1 [facility] THIAZIDE 7-18 CAPSULE BY ity o f 12.5 mg 00:00: MOUTH [place] capsule 00 DAILY [facility] HYDROCHLORO 2022-0 Yes [id number] 12.5mg TAKE 1 [facility] THIAZIDE 7-18 CAPSULE BY ity o f 12.5 mg 00:00: MOUTH [place] capsule 00 DAILY [facility] HYDROCHLORO 2022-0 Yes [id number] 12.5mg TAKE 1 [facility] THIAZIDE 7-18 CAPSULE BY ity o f 12.5 mg 00:00: MOUTH [place] capsule 00 DAILY [facility] HYDROCHLORO 2022-0 Yes [id number] 12.5mg TAKE 1 [facility] THIAZIDE 7-18 CAPSULE BY ity o f 12.5 mg 00:00: MOUTH [place] capsule 00 DAILY [facility] HYDROCHLORO 2022-0 Yes [id number] 12.5mg TAKE 1 [facility] THIAZIDE 7-18 CAPSULE BY ity o f 12.5 mg 00:00: MOUTH [place] capsule 00 DAILY [facility] HYDROCHLORO 2022-0 Yes [id number] 12.5mg TAKE 1 [facility] THIAZIDE 7-18 CAPSULE BY ity o f 12.5 mg 00:00: MOUTH [place] capsule 00 DAILY [facility] HYDROCHLORO 2022-0 Yes [id number] 12.5mg TAKE 1 [facility] THIAZIDE 7-18 CAPSULE BY ity o f 12.5 mg 00:00: MOUTH [place] capsule 00 DAILY [facility] HYDROCHLORO 2022-0 Yes [id number] 12.5mg TAKE 1 [facility] THIAZIDE 7-18 CAPSULE BY ity o f 12.5 mg 00:00: MOUTH [place] capsule 00 DAILY [facility] HYDROCHLORO 2022-0 Yes [id number] 12.5mg TAKE 1 [facility] THIAZIDE 7-18 CAPSULE BY ity o f 12.5 mg 00:00: MOUTH [place] capsule 00 DAILY [facility] HYDROCHLORO 2-0 Yes [id number] 12.5mg TAKE 1 [facility] THIAZIDE 7-18 CAPSULE BY ity o f 12.5 mg 00:00: MOUTH [place] capsule 00 DAILY [facility] HYDROCHLORO 2-0 Yes [id number] 12.5mg TAKE 1 [facility] THIAZIDE 7-18 CAPSULE BY ity o f 12.5 mg 00:00: MOUTH [place] capsule 00 DAILY [facility] HYDROCHLORO 2021-0 Yes [id number] 12.5mg TAKE 1 [facility] THIAZIDE 7-18 CAPSULE BY ity o f 12.5 mg 00:00: MOUTH [place] capsule 00 DAILY [facility] HYDROCHLORO 2021-0 Yes [id number] 12.5mg TAKE 1 [facility] THIAZIDE 7-18 CAPSULE BY ity o f 12.5 mg 00:00: MOUTH [place] capsule 00 DAILY [facility] HYDROCHLORO 2021-0 Yes [id number] 12.5mg TAKE 1 [facility] THIAZIDE 7-18 CAPSULE BY ity o f 12.5 mg 00:00: MOUTH [place] capsule 00 DAILY [facility] HYDROCHLORO 2021-0 Yes [id number] 12.5mg TAKE 1 [facility] THIAZIDE 7-18 CAPSULE BY ity o f 12.5 mg 00:00: MOUTH [place] capsule 00 DAILY [facility] HYDROCHLORO 2021-0 Yes [id number] 12.5mg TAKE 1 [facility] THIAZIDE 7-18 CAPSULE BY ity o f 12.5 mg 00:00: MOUTH [place] capsule 00 DAILY [facility] HYDROCHLORO 2021-0 Yes [id number] 12.5mg TAKE 1 [facility] THIAZIDE 7-18 CAPSULE BY ity o f 12.5 mg 00:00: MOUTH [place] capsule 00 DAILY [facility] HYDROCHLORO 2021-0 Yes [id number] 12.5mg TAKE 1 [facility] THIAZIDE 7-18 CAPSULE BY ity o f 12.5 mg 00:00: MOUTH [place] capsule 00 DAILY [facility] HYDROCHLORO 2-0 3- No [id number] 12.5mg TAKE 1 [facility] THIAZIDE 7-18 - CAPSULE BY ity of 12.5 mg 00:00: 00:00 MOUTH [place] capsule 00 :00 DAILY Medical Branch HYDROcodone 2-0 Yes [id number] 1{tbl} Take [...] Medical times Branch daily. GABAPENTIN 2022-0 Yes [id number] TAKE 1 [facility] 600 mg 5-31 TABLET BY ity of tablet 00:00: MOUTH [place] 00 THREE Medical TIMES Branch DAILY GABAPENTIN 2022-0 Yes [id number] TAKE 1 [facility] 600 mg 5-31 TABLET BY ity of tablet 00:00: MOUTH [place] 00 THREE Medical TIMES Branch DAILY GABAPENTIN 2022-0 Yes [id number] TAKE 1 [facility] 600 mg 5-31 TABLET BY ity of tablet 00:00: MOUTH [place] 00 THREE Medical TIMES Branch DAILY GABAPENTIN 2022-0 Yes [id number] TAKE 1 [facility] 600 mg 5-31 TABLET BY ity of tablet 00:00: MOUTH [place] 00 THREE Medical TIMES Branch DAILY GABAPENTIN 2022-0 Yes [id number] TAKE 1 [facility] 600 mg 03-31 TABLET BY ity of tablet 00:00: MOUTH 00 THREE Medical TIMES Branch DAILY [place] 2022- No TAKE 1 [facility] vers e (AMITIZA) 03-31 CAPSULE BY i ty of 24 MCG 00:00: 00:00 MOUTH [place] capsule 00 :[facility] vers e (AMITIZA) 03-31 CAPSULE BY i ty of 24 MCG 00:00: 00:00 MOUTH [place] capsule 00 :00 TWICE MD DAILY [facility] 2022- No TAKE 1 Uni vers e (AMITIZA) 03-31 CAPSULE BY i ty of 24 MCG 00:00: 00:00 MOUTH [place] capsule 00 :00 TWICE MD DAILY [facility] 2022- No TAKE 1 Uni vers e (AMITIZA) 03-31 CAPSULE BY i ty of 24 MCG 00:00: 00:00 MOUTH [place] capsule 00 :00 TWICE MD DAILY [facility] 1 [facility] vers e (AMITIZA) 03-31 CAPSULE BY i ty of 24 MCG 00:00: 00:00 MOUTH [place] capsule 00 :[facility] vers e (AMITIZA) 03-31 CAPSULE BY i ty of 24 MCG 00:00: 00:00 MOUTH [place] capsule 00 :00 TWICE MD DAILY [facility] vers e (AMITIZA) 03-31 CAPSULE BY i ty of 24 MCG 00:00: 00:00 MOUTH [place] capsule 00 :00 TWICE MD DAILY [facility] GABAPENTIN 2021- No [id number] TAKE 1 [facility] 600 mg 03-31- TABLET BY ity of tablet 00:00: 00:00 MOUTH [place] 00 :00 THREE Medical TIMES Branch DAILY Insulin Yes [id number] Use as Uni vers Syringe-Nee 5-18 directed ity of dle U-100 1 00:00: [place] mL 31 x 00 Medical 3/8" Syrg Branch Insulin 2022-0 Yes [id number] Use as Uni vers Syringe-Nee 5-18 directed ity of dle U-100 1 00:00: [place] mL 31 x 00 Medical 3/8" Syrg Branch Insulin 2022-0 Yes [id number] Use as Uni vers Syringe-Nee 5-18 directed ity of dle U-100 1 00:00: [place] mL 31 x 00 Medical 3/8" Syrg Branch Insulin 2022-0 Yes [id number] Use as Uni vers Syringe-Nee 5-18 directed ity of dle U-100 1 00:00: [place] mL 31 x 00 Medical 3/8" Syrg Branch Insulin 2022-0 Yes [id number] Use as Uni vers Syringe-Nee 5-18 directed ity of dle U-100 1 00:00: [place] mL 31 x 00 Medical 3/8" Syrg Branch Insulin 2022-0 Yes [id number] Use as Uni vers Syringe-Nee 5-18 directed ity of dle U-100 1 00:00: [place] mL 31 x 00 Medical 3/8" Syrg Branch Insulin 2022-0 Yes [id number] Use as Uni vers Syringe-Nee 5-18 directed ity of dle U-100 1 00:00: [place] mL 31 x 00 Medical 3/8" Syrg Branch Insulin 2022-0 Yes [id number] Use as Uni vers Syringe-Nee 5-18 directed ity of dle U-100 1 00:00: [place] mL 31 x 00 Medical 3/8" Syrg Branch Insulin 2022-0 Yes [id number] Use as Uni vers Syringe-Nee 5-18 directed ity of dle U-100 1 00:00: [place] mL 31 x 00 Medical 3/8" Syrg Branch Insulin 2022-0 Yes [id number] Use as Uni vers Syringe-Nee 5-18 directed ity of dle U-100 1 00:00: [place] mL 31 x 00 Medical 3/8" Syrg Branch Insulin 2022-0 Yes [id number] Use as Uni vers Syringe-Nee 5-18 directed ity of dle U-100 1 00:00: [place] mL 31 x 00 Medical 3/8" Syrg Branch Insulin 2022-0 Yes [id number] Use as Uni vers Syringe-Nee 5-18 directed ity of dle U-100 1 00:00: [place] mL 31 x 00 Medical 3/8" Syrg Branch Insulin 2022-0 Yes [id number] Use as Uni vers Syringe-Nee 5-18 directed ity of dle U-100 1 00:00: [place] mL 31 x 00 Medical 3/8" Syrg Branch Insulin 2022-0 Yes [id number] Use as Uni vers Syringe-Nee 5-18 directed ity of dle U-100 1 00:00: [place] mL 31 x 00 Medical 3/8" Syrg Branch Insulin 2022-0 Yes [id number] Use as Uni vers Syringe-Nee 5-18 directed ity of dle U-100 1 00:00: [place] mL 31 x 00 Medical 3/8" Syrg Branch Insulin 2022-0 Yes [id number] Use as Uni vers Syringe-Nee 5-18 directed ity of dle U-100 1 00:00: [place] mL 31 x 00 Medical 3/8" Syrg Branch Insulin 2022-0 Yes [id number] Use as Uni vers Syringe-Nee 5-18 directed ity of dle U-100 1 00:00: [place] mL 31 x 00 Medical 3/8" Syrg Branch Insulin 2022-0 Yes [id number] Use as Uni vers Syringe-Nee 5-18 directed ity of dle U-100 1 00:00: [place] mL 31 x 00 Medical 3/8" Syrg Branch Insulin 2022-0 Yes [id number] Use as Uni vers Syringe-Nee 5-18 directed ity of dle U-100 1 00:00: [place] mL 31 x 00 Medical 3/8" Syrg Branch Insulin 2022-0 Yes [id number] Use as Uni vers Syringe-Nee 5-18 directed ity of dle U-100 1 00:00: [place] mL 31 x 00 Medical 3/8" Syrg Branch Insulin 2022-0 Yes [id number] Use as Uni vers Syringe-Nee 5-18 directed ity of dle U-100 1 00:00: [place] mL 31 x 00 Medical 3/8" Syrg Branch Insulin 2022-0 Yes [id number] Use as Uni vers Syringe-Nee 5-18 directed ity of dle U-100 1 00:00: [place] mL 31 x 00 Medical 3/8" Syrg Branch Insulin 2022-0 Yes [id number] Use as Uni vers Syringe-Nee 5-18 directed ity of dle U-100 1 00:00: [place] mL 31 x 00 Medical 3/8" Syrg Branch Insulin 2022-0 Yes [id number] Use as Uni vers Syringe-Nee 5-18 directed ity of dle U-100 1 00:00: [place] mL 31 x 00 Medical 3/8" Syrg Branch Insulin 2022-0 Yes [id number] Use as Uni vers Syringe-Nee 5-18 directed ity of dle U-100 1 00:00: [place] mL 31 x 00 Medical 3/8" Syrg Branch Insulin 2022-0 Yes [id number] Use as Uni vers Syringe-Nee 5-18 directed ity of dle U-100 1 00:00: [place] mL 31 x 00 Medical 3/8" Syrg Branch Insulin 2022-0 Yes [id number] Use as Uni vers Syringe-Nee 5-18 directed ity of dle U-100 1 00:00: [place] mL 31 x 00 Medical 3/8" Syrg Branch Insulin 2022-0 Yes [id number] Use as Uni vers Syringe-Nee 5-18 directed ity of dle U-100 1 00:00: [place] mL 31 x 00 Medical 3/8" Syrg Branch Insulin 2022-0 Yes [id number] Use as Uni vers Syringe-Nee 5-18 directed ity of dle U-100 1 00:00: [place] mL 31 x 00 Medical 3/8" Syrg Branch Insulin 2022-0 Yes [id number] Use as Uni vers Syringe-Nee 5-18 directed ity of dle U-100 1 00:00: [place] mL 31 x 00 Medical 3/8" Syrg Branch Insulin 2022-0 Yes [id number] Use as Uni vers Syringe-Nee 5-18 directed ity of dle U-100 1 00:00: [place] mL 31 x 00 Medical 3/8" Syrg Branch Insulin 2022-0 Yes [id number] Use as Uni vers Syringe-Nee 5-18 directed ity of dle U-100 1 00:00: [place] mL 31 x 00 Medical 3/8" Syrg Branch Insulin 2022-0 Yes [id number] Use as Uni vers Syringe-Nee 5-18 directed ity of dle U-100 1 00:00: [place] mL 31 x 00 Medical 3/8" Syrg Branch Insulin 2022-0 Yes [id number] Use as Uni vers Syringe-Nee 5-18 directed ity of dle U-100 1 00:00: [place] mL 31 x 00 Medical 3/8" Syrg Branch Insulin 2022-0 Yes [id number] Use as Uni vers Syringe-Nee 5-18 directed ity of dle U-100 1 00:00: [place] mL 31 x 00 Medical 3/8" Syrg Branch Insulin 2022-0 Yes [id number] Use as Uni vers Syringe-Nee 5-18 directed ity of dle U-100 1 00:00: [place] mL 31 x 00 Medical 3/8" Syrg Branch Insulin 2022-0 Yes [id number] Use as Uni vers Syringe-Nee 5-18 directed ity of dle U-100 1 00:00: [place] mL 31 x 00 Medical 3/8" Syrg Branch Insulin 2022-0 Yes [id number] Use as Uni vers Syringe-Nee 5-18 directed ity of dle U-100 1 00:00: [place] mL 31 x 00 Medical 3/8" Syrg Branch Insulin 2022-0 Yes [id number] Use as Uni vers Syringe-Nee 5-18 directed ity of dle U-100 1 00:00: [place] mL 31 x 00 Medical 3/8" Syrg Branch Insulin 2022-0 Yes [id number] Use as Uni vers Syringe-Nee 5-18 directed ity of dle U-100 1 00:00: [place] mL 31 x 00 Medical 3/8" Syrg Branch Insulin 2022-0 Yes [id number] Use as Uni vers Syringe-Nee 5-18 directed ity of dle U-100 1 00:00: [place] mL 31 x 00 Medical 3/8" Syrg Branch Insulin 2022-0 Yes [id number] Use as Uni vers Syringe-Nee 5-18 directed ity of dle U-100 1 00:00: [place] mL 31 x 00 Medical 3/8" Syrg Branch Insulin 2022-0 Yes [id number] Use as Uni vers Syringe-Nee 5-18 directed ity of dle U-100 1 00:00: [place] mL 31 x 00 Medical 3/8" Syrg Branch Insulin 2022-0 Yes [id number] Use as Uni vers Syringe-Nee 5-18 directed ity of dle U-100 1 00:00: [place] mL 31 x 00 Medical 3/8" Syrg Branch Insulin 2022-0 Yes [id number] Use as Uni vers Syringe-Nee 5-18 directed ity of dle U-100 1 00:00: [place] mL 31 x 00 Medical 3/8" Syrg Branch Insulin 2022-0 Yes [id number] Use as Uni vers Syringe-Nee 5-18 directed ity of dle U-100 1 00:00: [place] mL 31 x 00 Medical 3/8" Syrg Branch Insulin 2022-0 Yes [id number] Use as Uni vers Syringe-Nee 5-18 directed ity of dle U-100 1 00:00: [place] mL 31 x 00 Medical 3/8" Syrg Branch Insulin 2022-0 Yes [id number] Use as Uni vers Syringe-Nee 5-18 directed ity of dle U-100 1 00:00: [place] mL 31 x 00 Medical 3/8" Syrg Branch Insulin 2022-0 Yes [id number] Use as Uni vers Syringe-Nee 5-18 directed ity of dle U-100 1 00:00: [place] mL 31 x 00 Medical 3/8" Syrg Branch Insulin 2022-0 Yes [id number] Use as Uni vers Syringe-Nee 5-18 directed ity of dle U-100 1 00:00: [place] mL 31 x 00 Medical 3/8" Syrg Branch Insulin 2022-0 Yes [id number] Use as Uni vers Syringe-Nee 5-18 directed ity of dle U-100 1 00:00: [place] mL 31 x 00 Medical 3/8" Syrg Branch Insulin 2022-0 Yes [id number] Use as Uni vers Syringe-Nee 5-18 directed ity of dle U-100 1 00:00: [place] mL 31 x 00 Medical 3/8" Syrg Branch Insulin 2022-0 Yes [id number] Use as Uni vers Syringe-Nee 5-18 directed ity of dle U-100 1 00:00: [place] mL 31 x 00 Medical 38" Syrg Branch METFORMIN 2-0 Yes [id number] TAKE 1 U nivers 1,000 mg 5-16 TABLET BY ity of tablet 00:00: MOUTH [place] TWICE Medical DAILY WITH Branch MEALS HYDRALAZINE 2021-0 Yes [id number] TAKE 1 [facility] 100 mg 5-16 TABLET BY ity of tablet 00:00: [facility] THREE Medical TIMES Branch DAILY METFORMIN 2-0 Yes [id number] TAKE 1 U nivers 1,000 mg 5-16 TABLET BY ity of tablet 00:00: MOUTH [place] TWICE Medical DAILY WITH Branch MEALS HYDRALAZINE 2021-0 Yes [id number] TAKE 1 [facility] 100 mg 5-16 TABLET BY ity of tablet 00:00: [facility] THREE Medical TIMES Branch DAILY METFORMIN 2-0 Yes [id number] TAKE 1 U nivers 1,000 mg 5-16 TABLET BY ity of tablet 00:00: [facility] TWICE Medical DAILY WITH Branch MEALS HYDRALAZINE 2021-0 Yes [id number] TAKE 1 [facility] 100 mg 5-16 TABLET BY ity of tablet 00:00: [facility] THREE Medical TIMES Branch DAILY METFORMIN 2-0 Yes [id number] TAKE 1 U nivers 1,000 mg 5-16 TABLET BY ity of tablet 00:00: [facility] TWICE Medical DAILY WITH Branch MEALS HYDRALAZINE 2021-0 Yes [id number] TAKE 1 [facility] 100 mg 5-16 TABLET BY ity of tablet 00:00: [facility] THREE Medical TIMES Branch DAILY METFORMIN 2-0 Yes [id number] TAKE 1 U nivers 1,000 mg 5-16 TABLET BY ity of tablet 00:00: MOUTH [place] TWICE Medical DAILY WITH Branch MEALS HYDRALAZINE 2021-0 Yes [id number] TAKE 1 [facility] 100 mg 5-16 TABLET BY ity of tablet 00:00: [facility] THREE Medical TIMES Branch DAILY METFORMIN 2-0 Yes [id number] TAKE 1 U nivers 1,000 mg 5-16 TABLET BY ity of tablet 00:00: [facility] TWICE Medical DAILY WITH Branch MEALS HYDRALAZINE 2-0 Yes [id number] TAKE 1 [facility] 100 mg 5-16 TABLET BY ity of tablet 00:00: [facility] THREE Medical TIMES Branch DAILY METFORMIN 2-0 Yes [id number] TAKE 1 U nivers 1,000 mg 5-16 TABLET BY ity of tablet 00:00: MOUTH TWICE Medical DAILY WITH Branch MEALS HYDRALAZINE 2021-0 Yes [id number] TAKE 1 [facility] 100 mg 5-16 TABLET BY ity of tablet 00:00: MOUTH THREE Medical TIMES Branch DAILY METFORMIN 2-0 Yes [id number] TAKE 1 U nivers 1,000 mg 5-16 TABLET BY ity of tablet 00:00: MOUTH TWICE Medical DAILY WITH Branch MEALS HYDRALAZINE 2021-0 Yes [id number] TAKE 1 [facility] 100 mg 5-16 TABLET BY ity of tablet 00:00: MOUTH THREE Medical TIMES Branch DAILY METFORMIN 2-0 Yes [id number] TAKE 1 U nivers 1,000 mg 5-16 TABLET BY ity of tablet 00:00: MOUTH TWICE Medical DAILY WITH Branch MEALS HYDRALAZINE 2021-0 Yes [id number] TAKE 1 [facility] 100 mg 5-16 TABLET BY ity of tablet 00:00: MOUTH THREE Medical TIMES Branch DAILY METFORMIN 2-0 Yes [id number] TAKE 1 U nivers 1,000 mg 5-16 TABLET BY ity of tablet 00:00: MOUTH TWICE Medical DAILY WITH Branch MEALS HYDRALAZINE 2021-0 Yes [id number] TAKE 1 [facility] 100 mg 5-16 TABLET BY ity of tablet 00:00: MOUTH THREE Medical TIMES Branch DAILY METFORMIN 2-0 Yes [id number] TAKE 1 U nivers 1,000 mg 5-16 TABLET BY ity of tablet 00:00: MOUTH TWICE Medical DAILY WITH Branch MEALS HYDRALAZINE 2-0 Yes [id number] TAKE 1 [facility] 100 mg 5-16 TABLET BY ity of tablet 00:00: MOUTH THREE Medical TIMES Branch DAILY METFORMIN 2-0 Yes [id number] TAKE 1 U nivers 1,000 mg 5-16 TABLET BY ity of tablet 00:00: MOUTH TWICE Medical DAILY WITH Branch MEALS METFORMIN 2022-0 Yes [id number] TAKE 1 U nivers 1,000 mg 5-16 TABLET BY ity of tablet 00:00: MOUTH TWICE Medical DAILY WITH Branch MEALS METFORMIN 2022-0 Yes [id number] TAKE 1 U nivers 1,000 mg 5-16 TABLET BY ity of tablet 00:00: MOUTH 00 TWICE Medical DAILY WITH Branch MEALS METFORMIN 2022-0 Yes [id number] TAKE 1 U nivers 1,000 mg 5-16 TABLET BY ity of tablet 00:00: MOUTH 00 TWICE Medical DAILY WITH Branch MEALS METFORMIN 2022-0 Yes [id number] TAKE 1 U nivers 1,000 mg 5-16 TABLET BY ity of tablet 00:00: MOUTH 00 TWICE Medical DAILY WITH Branch MEALS METFORMIN 2022-0 Yes [id number] TAKE 1 U nivers 1,000 mg 5-16 TABLET BY ity of tablet 00:00: MOUTH 00 TWICE Medical DAILY WITH Branch MEALS METFORMIN 2022-0 Yes [id number] TAKE 1 U nivers 1,000 mg 5-16 TABLET BY ity of tablet 00:00: MOUTH 00 TWICE Medical DAILY WITH Branch MEALS METFORMIN 2022-0 Yes [id number] TAKE 1 U nivers 1,000 mg 5-16 TABLET BY ity of tablet 00:00: MOUTH 00 TWICE Medical DAILY WITH Branch MEALS METFORMIN 2022-0 Yes [id number] TAKE 1 U nivers 1,000 mg 5-16 TABLET BY ity of tablet 00:00: MOUTH TWICE Medical DAILY WITH Branch MEALS METFORMIN 2022-0 Yes [id number] TAKE 1 U nivers 1,000 mg 5-16 TABLET BY ity of tablet 00:00: MOUTH TWICE Medical DAILY WITH Branch MEALS METFORMIN 2022-0 Yes [id number] TAKE 1 U nivers 1,000 mg 5-16 TABLET BY ity of tablet 00:00: MOUTH TWICE Medical DAILY WITH Branch MEALS METFORMIN 2022-0 Yes [id number] TAKE 1 U nivers 1,000 mg 5-16 TABLET BY ity of tablet 00:00: MOUTH TWICE Medical DAILY WITH Branch MEALS METFORMIN 2022-0 Yes [id number] TAKE 1 U nivers 1,000 mg 5-16 TABLET BY ity of tablet 00:00: MOUTH 00 TWICE Medical DAILY WITH Branch MEALS METFORMIN 2022-0 Yes [id number] TAKE 1 U nivers 1,000 mg 5-16 TABLET BY ity of tablet 00:00: MOUTH 00 TWICE Medical DAILY WITH Branch MEALS METFORMIN 2022-0 Yes [id number] TAKE 1 U nivers 1,000 mg 5-16 TABLET BY ity of tablet 00:00: MOUTH 00 TWICE Medical DAILY WITH Branch MEALS METFORMIN 2-0 Yes [id number] TAKE 1 U nivers 1,000 mg 5-16 TABLET BY ity of tablet 00:00: MOUTH [place] 00 TWICE Medical DAILY WITH Branch MEALS METFORMIN 2022-0 Yes [id number] TAKE 1 U nivers 1,000 mg 5-16 TABLET BY ity of tablet 00:00: MOUTH [place] 00 TWICE Medical DAILY WITH Branch MEALS METFORMIN 2022-0 Yes [id number] TAKE 1 U nivers 1,000 mg 5-16 TABLET BY ity of tablet 00:00: MOUTH [place] 00 TWICE Medical DAILY WITH Branch MEALS METFORMIN 2-0 Yes [id number] TAKE 1 U nivers 1,000 mg 5-16 TABLET BY ity of tablet 00:00: MOUTH 00 TWICE Medical DAILY WITH Branch MEALS METFORMIN 2-0 Yes [id number] TAKE 1 U nivers 1,000 mg 5-16 TABLET BY ity of tablet 00:00: MOUTH 00 TWICE Medical DAILY WITH Branch MEALS METFORMIN 2-0 Yes [id number] TAKE 1 U nivers 1,000 mg 5-16 TABLET BY ity of tablet 00:00: MOUTH [place] 00 TWICE Medical DAILY WITH Branch MEALS METFORMIN 2-0 Yes [id number] TAKE 1 U nivers 1,000 mg 5-16 TABLET BY ity of tablet 00:00: MOUTH [place] 00 TWICE Medical DAILY WITH Branch MEALS METFORMIN 2-0 2022- No [id number] TAKE 1 Univers 1,000 mg 5-16 11-21 TABLET BY ity o f tablet 00:00: 00:00 MOUTH [place] 00 :00 TWICE Medical DAILY WITH Branch MEALS METFORMIN 2-0 2022- No [id number] TAKE 1 [facility] 1,000 mg 5-16 11-21 TABLET BY ity o f tablet 00:00: 00:00 MOUTH [place] 00 :00 TWICE Medical DAILY WITH Branch MEALS HYDRALAZINE 2-0 2- No [id number] TAKE 1 [facility] 100 mg 5-16 09-06 TABLET BY ity of tablet 00:00: 00:00 MOUTH [place] 00 :00 THREE Medical TIMES Branch DAILY LISINOPRIL 2021-0 Yes [id number] TAKE 1/2 [facility] 40 mg 5-13 TABLET BY ity of tablet 00:00: MOUTH [place] 00 TWICE Medical DAILY Branch LISINOPRIL 2021-0 Yes [id number] TAKE 1/2 [facility] 40 mg 5-13 TABLET BY ity of tablet 00:00: MOUTH [place] 00 TWICE Medical DAILY Branch LISINOPRIL 2021-0 Yes [id number] TAKE 1/2 [facility] 40 mg 5-13 TABLET BY ity of tablet 00:00: MOUTH [place] 00 TWICE Medical DAILY Branch LISINOPRIL 2021-0 Yes [id number] TAKE 1/2 [facility] 40 mg 5-13 TABLET BY ity of tablet 00:00: MOUTH [place] 00 TWICE Medical DAILY Branch LISINOPRIL 2021-0 Yes [id number] TAKE 1/2 [facility] 40 mg 5-13 TABLET BY ity of tablet 00:00: MOUTH [place] 00 TWICE Medical DAILY Branch LISINOPRIL 2021-0 Yes [id number] TAKE 1/2 [facility] 40 mg 5-13 TABLET BY ity of tablet 00:00: MOUTH [place] 00 TWICE Medical DAILY Branch LISINOPRIL 2021-0 Yes [id number] TAKE 1/2 [facility] 40 mg 5-13 TABLET BY ity of tablet 00:00: MOUTH [place] 00 TWICE Medical DAILY Branch LISINOPRIL 2021-0 2- No [id number] TAKE 1/2 [facility] 40 mg 5-13 08-08 TABLET BY ity of tablet 00:00: 00:00 MOUTH [place] 00 :00 TWICE Medical DAILY Branch LISINOPRIL 2021-0 2021- No [id number] TAKE 1/2 [facility] 40 mg 5-13 08-08 TABLET BY ity of tablet 00:00: 00:00 MOUTH [place] 00 :00 TWICE Medical DAILY Branch HUMULIN 0 Yes [id number] ADMINISTER Univers 70/30 U-100 5-11 70 UNITS ity of INSULIN 100 00:00: [place] unit/mL 00 SKIN EVERY Medica l (70-30) MORNING Branch suspension THEN ADMINISTER 60 UNITS UNDER THE SKIN EVERY EVENING HUMULIN Yes [id number] ADMINISTER Univers 70/30 U-100 5-11 70 UNITS ity of INSULIN 100 00:00: [place] THE [place] unit/mL 00 SKIN EVERY Medica l (70-30) MORNING Branch suspension THEN ADMINISTER 60 UNITS UNDER THE SKIN EVERY EVENING HUMULIN 0 Yes [id number] ADMINISTER Univers 70/30 U-100 5-11 70 UNITS ity of INSULIN 100 00:00: [place] THE [place] unit/mL 00 SKIN EVERY Medica l (70-30) MORNING Branch suspension THEN ADMINISTER 60 UNITS UNDER THE SKIN EVERY EVENING HUMULIN Yes [id number] ADMINISTER Univers 70/30 U-100 -11 70 UNITS ity of INSULIN 100 00:00: [place] unit/mL 00 SKIN EVERY Medica l (70-30) MORNING Branch suspension THEN ADMINISTER 60 UNITS UNDER THE SKIN EVERY EVENING HUMULIN Yes [id number] ADMINISTER Univers 70/30 U-100 -11 70 UNITS ity of INSULIN 100 00:00: [place] unit/mL 00 SKIN EVERY Medica l (70-30) MORNING Branch suspension THEN ADMINISTER 60 UNITS UNDER THE SKIN EVERY EVENING HUMULIN 2021- No [id number] ADMINISTER Univers 70/30 U-100 5-11 08-03 70 [...] Syringe 03-03 SYRINGE ity o f U-500 / 00:00: 00:00 DIRECTED [place] as mL 31 gauge 00 :00 TWICE MD x 15/64" DAILY WITH Suraj so syrg MEALS [facility] BD Insulin 2022- No USE 1 Unive rs Syringe 03-03 SYRINGE ity o f U-500 1/2 00:00: 00:00 DIRECTED [place] mL 31 gauge 00 :00 TWICE MD x 15/64" DAILY WITH Suraj so syrg MEALS [facility] BD Insulin 2022- No USE 1 Unive rs Syringe 03-03 SYRINGE ity o f U-500 1/2 00:00: 00:00 DIRECTED [place] mL 31 gauge 00 :00 TWICE MD x 1564" DAILY WITH Suraj so syrg MEALS [facility] BD Insulin 2022- No USE 1 Unive rs Syringe 03-03 SYRINGE ity o f U-500 1/2 00:00: 00:00 DIRECTED [place] mL 31 gauge 00 :00 TWICE MD x 1564" DAILY WITH Suraj so syrg MEALS [facility] BD Insulin 2022- No USE 1 Unive rs Syringe 03-03 SYRINGE ity o f U-500 1/2 00:00: 00:00 DIRECTED [place] mL 31 gauge 00 :00 TWICE MD x 1564" DAILY WITH Suraj so syrg MEALS [facility] BD Insulin 2022- No USE 1 Unive rs Syringe 03-03 SYRINGE ity o f U-500 1/2 00:00: 00:00 DIRECTED [place] mL 31 gauge 00 :00 TWICE MD x 1564" DAILY WITH Suraj so syrg MEALS [facility] BD Insulin 2022- No USE 1 Unive rs Syringe 03-03 SYRINGE ity o f U-500 1/2 00:00: 00:00 DIRECTED [place] mL 31 gauge 00 :00 TWICE MD x 1564" DAILY WITH Suraj so syrg MEALS [facility] GABAPENTIN Yes [id number] TAKE 1 [facility] 600 mg 5-02 TABLET BY ity of tablet 00:00: MOUTH [place] 00 THREE Medical TIMES Branch DAILY BD INSULIN Yes [id number] USE 1 U nivers SYRINGE 5-02 SYRINGE ity of U-500 1/2 00:00: TWICE [place] mL 31 gauge 00 DAILY WITH Me dical x 1564" MEALS. Branch Syrg BD INSULIN Yes [id number] USE 1 U nivers SYRINGE 5-02 SYRINGE ity of U-500 2 00:00: TWICE [place] mL 31 gauge 00 DAILY WITH Me dical x 15/64" MEALS. Branch Syrg BD INSULIN 2021-0 Yes [id number] USE 1 U nivers SYRINGE 5-02 SYRINGE ity of U-500 2 00:00: TWICE [place] mL 31 gauge 00 DAILY WITH Me dical x 15/64" MEALS. Branch Syrg BD INSULIN 2021-0 Yes [id number] USE 1 U nivers SYRINGE 5-02 SYRINGE ity of U-500 2 00:00: TWICE [place] mL 31 gauge 00 DAILY WITH Me dical x 15/64" MEALS. [facility] Syrg BD INSULIN 2021-0 Yes [id number] USE 1 U nivers SYRINGE 5-02 SYRINGE ity of U-500 2 00:00: TWICE [place] mL 31 gauge 00 DAILY WITH Me dical x 15/64" MEALS. Branch Syrg BD INSULIN 2021-0 Yes [id number] USE 1 U nivers SYRINGE 5-02 SYRINGE ity of U-500 2 00:00: TWICE [place] mL 31 gauge 00 DAILY WITH Me dical x 15/64" MEALS. Branch Syrg BD INSULIN 2021-0 Yes [id number] USE 1 U nivers SYRINGE 5-02 SYRINGE ity of U-500 2 00:00: TWICE [place] mL 31 gauge 00 DAILY WITH Me dical x 15/64" MEALS. Branch Syrg BD INSULIN 0 Yes [id number] USE 1 U nivers SYRINGE 5-02 SYRINGE ity of U-500 2 00:00: TWICE [place] mL 31 gauge 00 DAILY WITH Me dical x 15/64" MEALS. Branch Syrg BD INSULIN 2021-0 Yes [id number] USE 1 [facility] nivers SYRINGE 5-02 SYRINGE ity of U-500 2 00:00: TWICE [place] mL 31 gauge 00 DAILY WITH Me dical x 15/64" MEALS. Branch Syrg BD INSULIN 2021-0 Yes [id number] USE 1 U nivers SYRINGE 5-02 SYRINGE ity of U-500 2 00:00: TWICE [place] mL 31 gauge 00 DAILY WITH Me dical x 15/64" MEALS. Branch Syrg BD INSULIN 2021-0 Yes [id number] USE 1 [facility] nivers SYRINGE 5-02 SYRINGE ity of U-500 2 00:00: TWICE [place] mL 31 gauge 00 DAILY WITH Me dical x 15/64" MEALS. Branch Syrg BD INSULIN 2021-0 Yes [id number] USE 1 U nivers SYRINGE 5-02 SYRINGE ity of U-500 2 00:00: TWICE [place] mL 31 gauge 00 DAILY WITH Me dical x 15/64" MEALS. Branch Syrg BD INSULIN 2021-0 Yes [id number] USE 1 [facility] nivers SYRINGE 5-02 SYRINGE ity of U-500 2 00:00: TWICE [place] mL 31 gauge 00 DAILY WITH Me dical x 15/64" MEALS. Branch Syrg BD INSULIN 2021-0 Yes [id number] USE 1 U nivers SYRINGE 5-02 SYRINGE ity of U-500 2 00:00: TWICE [place] mL 31 gauge 00 DAILY WITH Me dical x 15/64" MEALS. Branch Syrg BD INSULIN 2021-0 Yes [id number] USE 1 U nivers SYRINGE 5-02 SYRINGE ity of U-500 2 00:00: TWICE [place] mL 31 gauge 00 DAILY WITH Me dical x 15/64" MEALS. Branch Syrg BD INSULIN 0 Yes [id number] USE 1 U nivers SYRINGE 5-02 SYRINGE ity of U-500 2 00:00: TWICE [place] mL 31 gauge 00 DAILY WITH Me dical x 15/64" MEALS. Branch Syrg BD INSULIN 2021-0 Yes [id number] USE 1 U nivers SYRINGE 5-02 SYRINGE ity of U-500 2 00:00: TWICE [place] mL 31 gauge 00 DAILY WITH Me dical x 15/64" MEALS. Branch Syrg BD INSULIN 2021-0 Yes [id number] USE 1 U nivers SYRINGE 5-02 SYRINGE ity of U-500 2 00:00: TWICE [place] mL 31 gauge 00 DAILY WITH Me dical x 15/64" MEALS. Branch Syrg BD INSULIN 2021-0 Yes [id number] USE 1 U nivers SYRINGE 5-02 SYRINGE ity of U-500 2 00:00: TWICE [place] mL 31 gauge 00 DAILY WITH Me dical x 15/64" MEALS. [facility] Syrg BD INSULIN 2021-0 Yes [id number] USE 1 U nivers SYRINGE 5-02 SYRINGE ity of U-500 2 00:00: TWICE [place] mL 31 gauge 00 DAILY WITH Me dical x 15/64" MEALS. Branch Syrg BD INSULIN 2021-0 Yes [id number] USE 1 U nivers SYRINGE 5-02 SYRINGE ity of U-500 2 00:00: TWICE [place] mL 31 gauge 00 DAILY WITH Me dical x 15/64" MEALS. Branch Syrg BD INSULIN 2021-0 Yes [id number] USE 1 U nivers SYRINGE 5-02 SYRINGE ity of U-500 2 00:00: TWICE [place] mL 31 gauge 00 DAILY WITH Me dical x 15/64" MEALS. [facility] Syrg BD INSULIN 2021-0 Yes [id number] USE 1 U nivers SYRINGE 5-02 SYRINGE ity of U-500 2 00:00: TWICE [place] mL 31 gauge 00 DAILY WITH Me dical x 15/64" MEALS. [facility] Syrg BD INSULIN 2021-0 Yes [id number] USE 1 U nivers SYRINGE 5-02 SYRINGE ity of U-500 2 00:00: TWICE [place] mL 31 gauge 00 DAILY WITH Me dical x 15/64" MEALS. [facility] Syrg BD INSULIN 2021-0 Yes [id number] USE 1 U nivers SYRINGE 5-02 SYRINGE ity of U-500 2 00:00: TWICE [place] mL 31 gauge 00 DAILY WITH Me dical x 15/64" MEALS. Branch Syrg BD INSULIN 2021-0 Yes [id number] USE 1 U nivers SYRINGE 5-02 SYRINGE ity of U-500 2 00:00: TWICE [place] mL 31 gauge 00 DAILY WITH Me dical x 15/64" MEALS. Branch Syrg BD INSULIN 2021-0 Yes [id number] USE 1 U nivers SYRINGE 5-02 SYRINGE ity of U-500 2 00:00: TWICE [place] mL 31 gauge 00 DAILY WITH Me dical x 15/64" MEALS. Branch Syrg BD INSULIN 2021-0 Yes [id number] USE 1 U nivers SYRINGE 5-02 SYRINGE ity of U-500 2 00:00: TWICE [place] mL 31 gauge 00 DAILY WITH Me dical x 15/64" MEALS. Branch Syrg BD INSULIN 2021-0 Yes [id number] USE 1 U nivers SYRINGE 5-02 SYRINGE ity of U-500 2 00:00: TWICE [place] mL 31 gauge 00 DAILY WITH Me dical x 15/64" MEALS. Branch Syrg BD INSULIN 2021-0 Yes [id number] USE 1 U nivers SYRINGE 5-02 SYRINGE ity of U-500 2 00:00: TWICE [place] mL 31 gauge 00 DAILY WITH Me dical x 15/64" MEALS. Branch Syrg BD INSULIN 2021-0 Yes [id number] USE 1 U nivers SYRINGE 5-02 SYRINGE ity of U-500 2 00:00: TWICE [place] mL 31 gauge 00 DAILY WITH Me dical x 15/64" MEALS. Branch Syrg BD INSULIN 2021-0 Yes [id number] USE 1 U nivers SYRINGE 5-02 SYRINGE ity of U-500 2 00:00: TWICE [place] mL 31 gauge 00 DAILY WITH Me dical x 15/64" MEALS. Branch Syrg BD INSULIN 2021-0 Yes [id number] USE 1 U nivers SYRINGE 5-02 SYRINGE ity of U-500 2 00:00: TWICE [place] mL 31 gauge 00 DAILY WITH Me dical x 15/64" MEALS. Branch Syrg BD INSULIN 2021-0 Yes [id number] USE 1 U nivers SYRINGE 5-02 SYRINGE ity of U-500 2 00:00: TWICE [place] mL 31 gauge 00 DAILY WITH Me dical x 15/64" MEALS. Branch Syrg BD INSULIN 2021-0 Yes [id number] USE 1 U nivers SYRINGE 5-02 SYRINGE ity of U-500 2 00:00: TWICE [place] mL 31 gauge 00 DAILY WITH Me dical x 15/64" MEALS. Branch Syrg BD INSULIN 2021-0 Yes [id number] USE 1 U nivers SYRINGE 5-02 SYRINGE ity of U-500 2 00:00: TWICE [place] mL 31 gauge 00 DAILY WITH Me dical x 15/64" MEALS. Branch Syrg BD INSULIN 2021-0 Yes [id number] USE 1 U nivers SYRINGE 5-02 SYRINGE ity of U-500 2 00:00: TWICE [place] mL 31 gauge 00 DAILY WITH Me dical x 15/64" MEALS. [facility] Syrg BD INSULIN 2021-0 Yes [id number] USE 1 U nivers SYRINGE 5-02 SYRINGE ity of U-500 2 00:00: TWICE [place] mL 31 gauge 00 DAILY WITH Me dical x 15/64" MEALS. [facility] Syrg BD INSULIN 2021-0 Yes [id number] USE 1 U nivers SYRINGE 5-02 SYRINGE ity of U-500 2 00:00: TWICE [place] mL 31 gauge 00 DAILY WITH Me dical x 15/64" MEALS. Branch Syrg BD INSULIN 2021-0 Yes [id number] USE 1 U nivers SYRINGE 5-02 SYRINGE ity of U-500 2 00:00: TWICE [place] mL 31 gauge 00 DAILY WITH Me dical x 15/64" MEALS. Branch Syrg BD INSULIN 2021-0 Yes [id number] USE 1 U nivers SYRINGE 5-02 SYRINGE ity of U-500 2 00:00: TWICE [place] mL 31 gauge 00 DAILY WITH Me dical x 15/64" MEALS. [facility] Syrg BD INSULIN 2021-0 Yes [id number] USE 1 U nivers SYRINGE 5-02 SYRINGE ity of U-500 2 00:00: TWICE [place] mL 31 gauge 00 DAILY WITH Me dical x 15/64" MEALS. Branch Syrg BD INSULIN 2021-0 Yes [id number] USE 1 U nivers SYRINGE 5-02 SYRINGE ity of U-500 2 00:00: TWICE [place] mL 31 gauge 00 DAILY WITH Me dical x 15/64" MEALS. Branch Syrg BD INSULIN 2021-0 Yes [id number] USE 1 U nivers SYRINGE 5-02 SYRINGE ity of U-500 2 00:00: TWICE [place] mL 31 gauge 00 DAILY WITH Me dical x 15/64" MEALS. Branch Syrg BD INSULIN 2021-0 Yes [id number] USE 1 U nivers SYRINGE 5-02 SYRINGE ity of U-500 2 00:00: TWICE [place] mL 31 gauge 00 DAILY WITH Me dical x 15/64" MEALS. [facility] Syrg BD INSULIN 2021-0 Yes [id number] USE 1 U nivers SYRINGE 5-02 SYRINGE ity of U-500 2 00:00: TWICE [place] mL 31 gauge 00 DAILY WITH Me dical x 15/64" MEALS. Branch Syrg BD INSULIN 2021-0 Yes [id number] USE 1 U nivers SYRINGE 5-02 SYRINGE ity of U-500 2 00:00: TWICE [place] mL 31 gauge 00 DAILY WITH Me dical x 15/64" MEALS. Branch Syrg BD INSULIN 2021-0 Yes [id number] USE 1 U nivers SYRINGE 5-02 SYRINGE ity of U-500 2 00:00: TWICE [place] mL 31 gauge 00 DAILY WITH Me dical x 15/64" MEALS. [facility] Syrg BD INSULIN 2021-0 Yes [id number] USE 1 U nivers SYRINGE 5-02 SYRINGE ity of U-500 2 00:00: TWICE [place] mL 31 gauge 00 DAILY WITH Me dical x 15/64" MEALS. [facility] Syrg BD INSULIN 2021-0 Yes [id number] USE 1 U nivers SYRINGE 5-02 SYRINGE ity of U-500 2 00:00: TWICE [place] mL 31 gauge 00 DAILY WITH Me dical x 15/64" MEALS. Branch Syrg BD INSULIN 2021-0 Yes [id number] USE 1 U nivers SYRINGE 5-02 SYRINGE ity of U-500 2 00:00: TWICE [place] mL 31 gauge 00 DAILY WITH Me dical x 15/64" MEALS. Branch Syrg BD INSULIN 2021-0 Yes [id number] USE 1 U nivers SYRINGE 5-02 SYRINGE ity of U-500 2 00:00: TWICE [place] mL 31 gauge 00 DAILY WITH Me dical x 15/64" MEALS. Branch Syrg BD INSULIN 2021-0 Yes [id number] USE 1 U nivers SYRINGE 5-02 SYRINGE ity of U-500 2 00:00: TWICE [place] mL 31 gauge 00 DAILY WITH Me dical x 15/64" MEALS. Branch Syrg GABAPENTIN 2021-0 202- No [id number] TAKE 1 [facility] 600 mg 5-02 05-31 TABLET BY ity of tablet 00:00: 00:00 MOUTH [place] 00 :00 THREE Medical TIMES Branch DAILY sucralfate 2021-0 Yes [id number] 1g Take 1 [facility] 1 gram 3-27 tablet by ity of tablet 00:00: mouth [place] 00 before Medical meals and Branch at bedtime. sucralfate 2021-0 Yes [id number] 1g Take 1 [facility] 1 gram 3-27 tablet by ity of tablet 00:00: mouth [place] 00 before Medical meals and Branch at bedtime. sucralfate 2021-0 Yes [id number] 1g Take 1 [facility] 1 gram 3-27 tablet by ity of tablet 00:00: mouth [place] 00 before Medical meals and Branch at bedtime. sucralfate 2022-0 Yes [id number] 1g Take 1 [facility] 1 gram 3-27 tablet by ity of tablet 00:00: mouth [place] 00 before Medical meals and Branch at bedtime. sucralfate 2022-0 Yes [id number] 1g Take 1 [facility] 1 gram 3-27 tablet by ity of tablet 00:00: mouth [place] 00 before Medical meals and Branch at bedtime. sucralfate 2022-0 Yes [id number] 1g Take 1 [facility] 1 gram 3-27 tablet by ity of tablet 00:00: mouth [place] 00 before Medical meals and Branch at bedtime. sucralfate 2022-0 Yes [id number] 1g Take 1 [facility] 1 gram 3-27 tablet by ity of tablet 00:00: mouth [place] 00 before Medical meals and Branch at bedtime. sucralfate 2022-0 Yes [id number] 1g Take 1 [facility] 1 gram 3-27 tablet by ity of tablet 00:00: mouth [place] 00 before Medical meals and Branch at bedtime. sucralfate 2022-0 Yes [id number] 1g Take 1 [facility] 1 gram 3-27 tablet by ity of tablet 00:00: mouth [place] 00 before Medical meals and Branch at bedtime. sucralfate 2022-0 Yes [id number] 1g Take 1 [facility] 1 gram 3-27 tablet by ity of tablet 00:00: mouth [place] 00 before Medical meals and Branch at bedtime. sucralfate 2022-0 Yes [id number] 1g Take 1 [facility] 1 gram 3-27 tablet by ity of tablet 00:00: mouth [place] 00 before Medical meals and Branch at bedtime. sucralfate 2022-0 Yes [id number] 1g Take 1 [facility] 1 gram 3-27 tablet by ity of tablet 00:00: mouth [place] 00 before Medical meals and Branch at bedtime. sucralfate 2022-0 Yes [id number] 1g Take 1 [facility] 1 gram 3-27 tablet by ity of tablet 00:00: mouth [place] 00 before Medical meals and Branch at bedtime. sucralfate 2022-0 Yes [id number] 1g Take 1 [facility] 1 gram 3-27 tablet by ity of tablet 00:00: mouth [place] 00 before Medical meals and Branch at bedtime. sucralfate 2022-0 Yes [id number] 1g Take 1 [facility] 1 gram 3-27 tablet by ity of tablet 00:00: mouth [place] 00 before Medical meals and Branch at bedtime. sucralfate 2-0 Yes [id number] 1g Take 1 [facility] 1 gram 3-27 tablet by ity of tablet 00:00: mouth [place] 00 before Medical meals and Branch at bedtime. sucralfate 2-0 Yes [id number] 1g Take 1 [facility] 1 gram 3-27 tablet by ity of tablet 00:00: mouth [place] 00 before Medical meals and Branch at bedtime. sucralfate 2021-0 Yes [id number] 1g Take 1 [facility] 1 gram 3-27 tablet by ity of tablet 00:00: mouth [place] 00 before Medical meals and Branch at bedtime. sucralfate 2021-0 Yes [id number] 1g Take 1 [facility] 1 gram 3-27 tablet by ity of tablet 00:00: mouth [place] 00 before Medical meals and Branch at bedtime. sucralfate 2021-0 Yes [id number] 1g Take 1 [facility] 1 gram 3-27 tablet by ity of tablet 00:00: mouth [place] 00 before Medical meals and Branch at bedtime. sucralfate 2021-0 Yes [id number] 1g Take 1 [facility] 1 gram 3-27 tablet by ity of tablet 00:00: mouth [place] 00 before Medical meals and Branch at bedtime. sucralfate 2021-0 Yes [id number] 1g Take 1 [facility] 1 gram 3-27 tablet by ity of tablet 00:00: mouth [place] 00 before Medical meals and Branch at bedtime. sucralfate 2021-0 Yes [id number] 1g Take 1 [facility] 1 gram 3-27 tablet by ity of tablet 00:00: mouth [place] 00 before Medical meals and Branch at bedtime. sucralfate 2-0 Yes [id number] 1g Take 1 [facility] 1 gram 3-27 tablet by ity of tablet 00:00: mouth [place] 00 before Medical meals and Branch at bedtime. sucralfate 2-0 Yes [id number] 1g Take 1 [facility] 1 gram 3-27 tablet by ity of tablet 00:00: mouth [place] 00 before Medical meals and Branch at bedtime. sucralfate 2-0 Yes [id number] 1g Take 1 [facility] 1 gram 3-27 tablet by ity of tablet 00:00: mouth [place] 00 before Medical meals and Branch at bedtime. sucralfate 2022-0 Yes [id number] 1g Take 1 [facility] 1 gram 3-27 tablet by ity of tablet 00:00: mouth [place] 00 before Medical meals and Branch at bedtime. sucralfate 2022-0 Yes [id number] 1g Take 1 [facility] 1 gram 3-27 tablet by ity of tablet 00:00: mouth [place] 00 before Medical meals and Branch at bedtime. sucralfate 2022-0 Yes [id number] 1g Take 1 [facility] 1 gram 3-27 tablet by ity of tablet 00:00: mouth [place] 00 before Medical meals and Branch at bedtime. sucralfate 2022-0 Yes [id number] 1g Take 1 [facility] 1 gram 3-27 tablet by ity of tablet 00:00: mouth [place] 00 before Medical meals and Branch at bedtime. sucralfate 2022-0 Yes [id number] 1g Take 1 [facility] 1 gram 3-27 tablet by ity of tablet 00:00: mouth [place] 00 before Medical meals and Branch at bedtime. sucralfate 2-0 Yes [id number] 1g Take 1 [facility] 1 gram 3-27 tablet by ity of tablet 00:00: mouth [place] 00 before Medical meals and Branch at bedtime. sucralfate 2-0 Yes [id number] 1g Take 1 [facility] 1 gram 3-27 tablet by ity of tablet 00:00: mouth [place] 00 before Medical meals and Branch at bedtime. sucralfate 2022-0 Yes [id number] 1g Take 1 [facility] 1 gram 3-27 tablet by ity of tablet 00:00: mouth [place] 00 before Medical meals and Branch at bedtime. sucralfate 2022-0 Yes [id number] 1g Take 1 [facility] 1 gram 3-27 tablet by ity of tablet 00:00: mouth [place] 00 before Medical meals and Branch at bedtime. sucralfate 2022-0 Yes [id number] 1g Take 1 [facility] 1 gram 3-27 tablet by ity of tablet 00:00: mouth [place] 00 before Medical meals and Branch at bedtime. sucralfate 2022-0 Yes [id number] 1g Take 1 [facility] 1 gram 3-27 tablet by ity of tablet 00:00: mouth [place] 00 before Medical meals and Branch at bedtime. sucralfate 2022-0 Yes [id number] 1g Take 1 [facility] 1 gram 3-27 tablet by ity of tablet 00:00: mouth [place] 00 before Medical meals and Branch at bedtime. sucralfate 2022-0 Yes [id number] 1g Take 1 [facility] 1 gram 3-27 tablet by ity of tablet 00:00: mouth [place] 00 before Medical meals and Branch at bedtime. sucralfate 2022-0 Yes [id number] 1g Take 1 [facility] 1 gram 3-27 tablet by ity of tablet 00:00: mouth [place] 00 before Medical meals and Branch at bedtime. sucralfate 2022-0 Yes [id number] 1g Take 1 [facility] 1 gram 3-27 tablet by ity of tablet 00:00: mouth [place] 00 before Medical meals and Branch at bedtime. sucralfate 2-0 Yes [id number] 1g Take 1 [facility] 1 gram 3-27 tablet by ity of tablet 00:00: mouth [place] 00 before Medical meals and Branch at bedtime. sucralfate 2022-0 Yes [id number] 1g Take 1 [facility] 1 gram 3-27 tablet by ity of tablet 00:00: mouth [place] 00 before Medical meals and Branch at bedtime. sucralfate 2022-0 Yes [id number] 1g Take 1 [facility] 1 gram 3-27 tablet by ity of tablet 00:00: mouth [place] 00 before Medical meals and Branch at bedtime. sucralfate 2022-0 Yes [id number] 1g Take 1 [facility] 1 gram 3-27 tablet by ity of tablet 00:00: mouth [place] 00 before Medical meals and Branch at bedtime. sucralfate 2022-0 Yes [id number] 1g Take 1 [facility] 1 gram 3-27 tablet by ity of tablet 00:00: mouth [place] 00 before Medical meals and Branch at bedtime. sucralfate 2022-0 Yes [id number] 1g Take 1 [facility] 1 gram 3-27 tablet by ity of tablet 00:00: mouth [place] 00 before Medical meals and Branch at bedtime. sucralfate 2022-0 Yes [id number] 1g Take 1 [facility] 1 gram 3-27 tablet by ity of tablet 00:00: mouth [place] 00 before Medical meals and Branch at bedtime. sucralfate 2021-0 Yes [id number] 1g Take 1 [facility] 1 gram 3-27 tablet by ity of tablet 00:00: mouth [place] 00 before Medical meals and Branch at bedtime. sucralfate 2021-0 Yes [id number] 1g Take 1 [facility] 1 gram 3-27 tablet by ity of tablet 00:00: mouth [place] 00 before Medical meals and Branch at bedtime. sucralfate 2021-0 Yes [id number] 1g Take 1 [facility] 1 gram 3-27 tablet by ity of tablet 00:00: mouth [place] 00 before Medical meals and Branch at bedtime. sucralfate 2021-0 Yes [id number] 1g Take 1 [facility] 1 gram 3-27 tablet by ity of tablet 00:00: mouth [place] 00 before Medical meals and Branch at bedtime. sucralfate 2021-0 Yes [id number] 1g Take 1 [facility] 1 gram 3-27 [...] needed for Anxiety. hydrALAZINE 2021-0 Yes 10mg Q.[id number] Take [address] [facility] (APRESOLINE 3-11 [id number] [facility] ) 10 MG [...] 02 Center tablet gabapentin 2021-0 Yes 100mg Q.[id number] Take [address] [facility] (NEURONTIN) 3-11 [id number] mg by L ukes 100 MG 14:10: [...] as needed for Anxiety. hydrALAZINE Yes 10mg Q.[id number] Take [address] [facility] (APRESOLINE 3-11 [id number] by [facility] ) 10 MG [...] 02 Center tablet gabapentin 0 Yes 100mg Q.[id number] Take [address] [facility] (NEURONTIN) 3-11 [id number] mg by L ukes 100 MG 14:10: [...] needed for Anxiety. hydrALAZINE 2021-0 Yes 10mg Q.[id number] Take [address] [facility] (APRESOLINE 3-11 [id number] [facility] ) 10 MG [...] MG 02 Center tablet gabapentin Yes 100mg Q.[id number] Take [address] [facility] (NEURONTIN) 3-11 [id number] mg by L ukes 100 MG 14:10: [...] as needed for Anxiety. hydrALAZINE Yes 10mg Q.[id number] Take [address] [facility] (APRESOLINE 3-11 [id number] by [facility] ) 10 MG [...] MG 02 Center tablet gabapentin Yes 100mg Q.[id number] Take [address] [facility] (NEURONTIN) 3-11 [id number] mg by L ukes 100 MG 14:10: [...] needed for Anxiety. hydrALAZINE 2021-0 Yes 10mg Q.[id number] Take [address] [facility] (APRESOLINE 3-11 [id number] by [facility] ) 10 MG [...] 02 Center tablet gabapentin 2021-0 Yes 100mg Q.[id number] Take [address] [facility] (NEURONTIN) 3-11 [id number] mg by L ukes 100 MG 14:10: [...] needed for Anxiety. hydrALAZINE 0 Yes 10mg Q.[id number] Take [address] [facility] (APRESOLINE 3-11 [id number] [facility] ) 10 MG [...] MG 02 Center tablet gabapentin Yes 100mg Q.[id number] Take [address] [facility] (NEURONTIN) 3-11 [id number] mg by L ukes 100 MG 14:10: [...] needed for Anxiety. hydrALAZINE 2021-0 Yes 10mg Q.[id number] Take [address] [facility] (APRESOLINE 3-11 [id number] by [facility] ) 10 MG [...] 02 Center tablet gabapentin 0 Yes 100mg Q.53920640 Take [address] [facility] (NEURONTIN) 3-11 [id number] mg by L ukes 100 MG 14:10: [...] as needed for Anxiety. hydrALAZINE Yes 10mg Q.[id number] Take [address] [facility] (APRESOLINE 3-11 [id number] [facility] ) 10 MG [...] MG 02 Center tablet gabapentin Yes 100mg Q.[id number] Take [address] [facility] (NEURONTIN) 3-11 [id number] mg by L ukes 100 MG 14:10: [...] al 40 MG 02 Center tablet clonazePAM 2-0 Yes .5mg Take 0.[address] [facility] (KlonoPIN) 3-11 [facility] MG 14:10: mouth 2 Medical tablet 02 (two) Center times daily as needed for Anxiety. hydrALAZINE 2021-0 Yes 10mg Q.23980598 Take [address] [facility] (APRESOLINE 3-11 [id number] [facility] ) 10 MG [...] 02 Center tablet gabapentin 0 Yes 100mg Q.[id number] Take [address] [facility] (NEURONTIN) 3-11 [id number] mg by L ukes 100 MG 14:10: [...] as needed for Anxiety. hydrALAZINE Yes 10mg Q.[id number] Take [address] [facility] (APRESOLINE 3-11 [id number] by [facility] ) 10 MG [...] MG 02 Center tablet gabapentin Yes 100mg Q.[id number] Take [address] [facility] (NEURONTIN) 3-11 [id number] mg by L ukes 100 MG 14:10: [...] needed for Anxiety. hydrALAZINE 2021-0 Yes 10mg Q.[id number] Take [address] [facility] (APRESOLINE 3-11 [id number] by [facility] ) 10 MG [...] 02 Center tablet gabapentin 2021-0 Yes 100mg Q.31630883 Take [address] [facility] (NEURONTIN) 3-11 [id number] mg by L ukes 100 MG 14:10: [...] as needed for Anxiety. hydrALAZINE Yes 10mg Q.[id number] Take [address] [facility] (APRESOLINE 3-11 [id number] [facility] ) 10 MG [...] MG 02 Center tablet gabapentin Yes 100mg Q.[id number] Take [address] [facility] (NEURONTIN) 3-11 [id number] mg by L u[facility] 100 MG 14:10: [...] needed for Anxiety. hydrALAZINE 0 Yes 10mg Q.[id number] Take [address] [facility] (APRESOLINE 3-11 [id number] [facility] ) 10 MG [...] 02 Center tablet gabapentin 0 Yes 100mg Q.43136167 Take [address] [facility] (NEURONTIN) 3-11 [id number] mg by L ukes 100 MG 14:10: [...] as needed for Anxiety. hydrALAZINE Yes 10mg Q.[id number] Take [address] [facility] (APRESOLINE 3-11 [id number] [facility] ) 10 MG [...] MG 02 Center tablet gabapentin Yes 100mg Q.[id number] Take [address] [facility] (NEURONTIN) 3-11 [id number] mg by L ukes 100 MG 14:10: [...] needed for Anxiety. hydrALAZINE 2021-0 Yes 10mg Q.[id number] Take [address] [facility] (APRESOLINE 3-11 [id number] [facility] ) 10 MG [...] MG 02 Center tablet gabapentin Yes 100mg Q.45306881 Take [address] [facility] (NEURONTIN) 3-11 [id number] mg by L ukes 100 MG 14:10: [...] as needed for Anxiety. hydrALAZINE Yes 10mg Q.[id number] Take [address] [facility] (APRESOLINE 3-11 [id number] by [facility] ) 10 MG [...] MG 02 Center tablet gabapentin Yes 100mg Q.[id number] Take [address] [facility] (NEURONTIN) 3-11 [id number] mg by L ukes 100 MG 14:10: [...] needed for Anxiety. hydrALAZINE 0 Yes 10mg Q.72987107 Take [address] [facility] (APRESOLINE 3-11 [id number] by [facility] ) 10 MG [...] MG 02 Center tablet gabapentin Yes 100mg Q.72815516 Take [address] [facility] (NEURONTIN) 3-11 [id number] mg by L ukes 100 MG 14:10: [...] 00 TWICE Medical DAILY Branch METOPROLOL 2021-0 2022- No TAKE 1 [facility] ers TARTRATE 2-14 06-09 TABLET BY ity o f 100 mg 00:00: 00:00 MOUTH [place] tablet 00 :00 TWICE Medical DAILY Branch HYDROCHLORO 2-0 Yes [id number] 12.5mg TAKE 1 [facility] THIAZIDE 1-19 CAPSULE BY ity o f 12.5 mg 00:00: MOUTH [place] capsule 00 DAILY Medical Branch HYDROCHLORO 2-0 Yes [id number] 12.5mg TAKE 1 [facility] THIAZIDE 1-19 CAPSULE BY ity o f 12.5 mg 00:00: MOUTH [place] capsule 00 DAILY Medical Branch HYDROCHLORO 2-0 Yes [id number] 12.5mg TAKE 1 [facility] THIAZIDE 1-19 CAPSULE BY ity o f 12.5 mg 00:00: MOUTH [place] capsule 00 DAILY Medical Branch HYDROCHLORO 2-0 Yes [id number] 12.5mg TAKE 1 [facility] THIAZIDE 1-19 CAPSULE BY ity o f 12.5 mg 00:00: MOUTH [place] capsule 00 DAILY Medical Branch HYDROCHLORO 2022-0 2022- No [id number] 12.5mg TAKE 1 [facility] THIAZIDE 1-19 07-18 [...] NEEDED FOR CHEST PAIN. DICLOFENAC 2020-11 Yes [id number] APPLY TO [facility] SODIUM 1 % 2-02 THE ity of gel 00:00: [address] FOUR Medical TIMES Branch DAILY DICLOFENAC 2020-11 Yes [id number] APPLY TO Univers SODIUM 1 % 2-02 THE ity of gel 00:00: AFFECTED [place] 00 AREA FOUR Medical TIMES Branch DAILY DICLOFENAC 2020-11 Yes [id number] APPLY TO Univers SODIUM 1 % 2-02 THE ity of gel 00:00: AFFECTED [place] 00 [facility] FOUR Medical TIMES Branch DAILY DICLOFENAC 2020-11 Yes [id number] APPLY TO Univers SODIUM 1 % 2-02 THE ity of gel 00:00: AFFECTED [place] 00 AREA FOUR Medical TIMES Branch DAILY DICLOFENAC 2020-11 Yes [id number] APPLY TO [facility] SODIUM 1 % 2-02 THE ity of gel 00:00: AFFECTED [place] 00 AREA FOUR Medical TIMES Branch DAILY DICLOFENAC 2020-11 Yes [id number] APPLY TO [facility] SODIUM 1 % 2-02 THE ity of gel 00:00: AFFECTED [place] 00 AREA FOUR Medical TIMES Branch DAILY DICLOFENAC 2020-11 Yes [id number] APPLY TO [facility] SODIUM 1 % 2-02 THE ity of gel 00:00: AFFECTED [place] 00 [facility] Medical TIMES Branch DAILY DICLOFENAC 2020-11 Yes [id number] APPLY TO Univers SODIUM 1 % 2-02 THE ity of gel 00:00: AFFECTED [place] 00 [facility] FOUR Medical TIMES Branch DAILY DICLOFENAC 2020-11 Yes [id number] APPLY TO Univers SODIUM 1 % 2-02 THE ity of gel 00:00: AFFECTED [place] 00 [facility] FOUR Medical TIMES Branch DAILY DICLOFENAC 2020-11 Yes [id number] APPLY TO Univers SODIUM 1 % 2-02 THE ity of gel 00:00: AFFECTED [place] 00 [facility] FOUR Medical TIMES Branch DAILY DICLOFENAC 2020-11 Yes [id number] APPLY TO Univers SODIUM 1 % 2-02 THE ity of gel 00:00: AFFECTED [place] 00 [facility] FOUR Medical TIMES Branch DAILY DICLOFENAC 2020-11 Yes [id number] APPLY TO Univers SODIUM 1 % 2-02 THE ity of gel 00:00: AFFECTED [place] 00 [facility] FOUR Medical TIMES Branch DAILY DICLOFENAC 2020-11 Yes [id number] APPLY TO Univers SODIUM 1 % 2-02 THE ity of gel 00:00: AFFECTED [place] 00 [facility] FOUR Medical TIMES Branch DAILY DICLOFENAC 2020-11 Yes [id number] APPLY TO [facility] SODIUM 1 % 2-02 THE ity of gel 00:00: AFFECTED [place] 00 [facility] FOUR Medical TIMES Branch DAILY DICLOFENAC 2020-11 Yes [id number] APPLY TO [facility] SODIUM 1 % 2-02 THE ity of gel 00:00: AFFECTED [place] 00 AREA FOUR Medical TIMES Branch DAILY DICLOFENAC 2020-11 Yes [id number] APPLY TO [facility] 1 % 2-02 THE ity of gel 00:00: AFFECTED [place] 00 [facility] FOUR Medical TIMES Branch DAILY DICLOFENAC 2020-11 Yes [id number] APPLY TO [facility] 1 % 2-02 THE ity of gel 00:00: AFFECTED [place] 00 [facility] Medical TIMES Branch DAILY DICLOFENAC 2020-11 Yes [id number] APPLY TO [facility] 1 % 2-02 THE ity of gel 00:00: AFFECTED [place] 00 [facility] Medical TIMES Branch DAILY DICLOFENAC 2020-11 Yes [id number] APPLY TO [facility] 1 % 2-02 THE ity of gel 00:00: AFFECTED [place] 00 [facility] Medical TIMES Branch DAILY DICLOFENAC 2020-11 Yes [id number] APPLY TO [facility] SODIUM 1 % 2-02 THE ity of gel 00:00: AFFECTED [place] 00 [facility] Medical TIMES Branch DAILY DICLOFENAC 2020-11 Yes [id number] APPLY TO [facility] SODIUM 1 % 2-02 THE ity of gel 00:00: AFFECTED [place] 00 [facility] Medical TIMES Branch DAILY DICLOFENAC 2020-11 Yes [id number] APPLY TO [facility] SODIUM 1 % 2-02 THE ity of gel 00:00: AFFECTED [place] 00 [facility] Medical TIMES Branch DAILY DICLOFENAC 2020-11- No [id number] APPLY TO [facility] SODIUM 1 % 2-02 10-25 THE ity of gel 00:00: 00:00 AFFECTED [place] 00 :00 [facility] Medical TIMES Branch DAILY DICLOFENAC 2020-11- No [id number] APPLY TO [facility] SODIUM 1 % 2-02 10-25 THE ity of gel 00:00: 00:00 AFFECTED [place] 00 :00 [facility] Medical TIMES Branch DAILY colchicine 2020-11 Yes [id number] .6mg Take 1 U nivers 0.6 mg 0-07 tablet by ity of tablet 00:00: mouth [place] 00 daily. Medical Branch colchicine 2020-11 Yes [id number] .6mg Take 1 U nivers 0.6 mg 0-07 tablet by ity of tablet 00:00: mouth [place] 00 daily. Medical Branch colchicine 2020-11 Yes [id number] .6mg Take 1 U nivers 0.6 mg 0-07 tablet by ity of tablet 00:00: mouth [place] 00 daily. Medical Branch colchicine 2020-11 Yes [id number] .6mg Take 1 U nivers 0.6 mg 0-07 tablet by ity of tablet 00:00: mouth [place] 00 daily. Medical Branch colchicine 2020-11 Yes [id number] .6mg Take 1 U nivers 0.6 mg 0-07 tablet by ity of tablet 00:00: mouth [place] [address] [facility] Branch colchicine 2020-11 Yes [id number] .6mg Take 1 U nivers 0.6 mg 0-07 tablet by ity of tablet 00:00: mouth [place] [address] [facility] Branch colchicine 2020-11 Yes [id number] .6mg Take 1 U nivers 0.6 mg 0-07 tablet by ity of tablet 00:00: mouth [place] 00 daily. Medical Branch colchicine 2020-11 Yes [id number] .6mg Take 1 U nivers 0.6 mg 0-07 tablet by ity of tablet 00:00: mouth [place] [address] [facility] Branch colchicine 2020-11 Yes [id number] .6mg Take 1 U nivers 0.6 mg 0-07 tablet by ity of tablet 00:00: mouth [place] [address] [facility] Branch colchicine 2020-11 Yes [id number] .6mg Take 1 U nivers 0.6 mg 0-07 tablet by ity of tablet 00:00: mouth [place] 00 daily. Medical Branch colchicine 2020-11 Yes [id number] .6mg Take 1 U nivers 0.6 mg 0-07 tablet by ity of tablet 00:00: mouth [place] [address] [facility] Branch colchicine 2020-11 Yes [id number] .6mg Take 1 U nivers 0.6 mg 0-07 tablet by ity of tablet 00:00: mouth [place] [address] [facility] Branch colchicine 2020-11 Yes [id number] .6mg Take 1 U nivers 0.6 mg 0-07 tablet by ity of tablet 00:00: mouth [place] [address] [facility] Branch colchicine 2020-11- No [id number] .6mg Take 1 Univers 0.6 mg 0-07 -19 tablet by ity of tablet 00:00: 00:00 mouth [place] 00 :[address] [facility] Branch TRUEPLUS Yes USE TWICE Univ ers INSULIN 1 9-14 DAILY ity of mL 30 gauge 00:00: [place] x 5/16 Syrg 00 [facility] Yes USE TWICE Univ ers INSULIN 1 [...] 00:00: x 03/16 Syrg Medical Branch TRUEPLUS 0 Yes USE TWICE Univ ers INSULIN 1 9-14 DAILY ity of mL 30 gauge 00:00: x 03/16 Syrg Medical Branch TRUEPLUS 0 Yes USE [...] by mouth ity of tablet 09:38: at [place] [address] bedtime. Medical Branch mesalamine 0 Yes 1.5g Take 1.5 g U nivers 0.375 gram 7-14 by mouth ity o f 24 hr 09:38: daily. [place] [address] Medical Branch mirtazapine 2021-0 Yes 15mg Take 15 mg [facility] 15 mg 7-14 by mouth ity of tablet 09:38: at [place] [address] bedtime. Medical Branch mesalamine 2020-0 Yes 1.5g Take 1.5 g U nivers 0.375 gram 7-14 by mouth ity o f 24 hr 09:38: daily. [facility] 49 Medical Branch mirtazapine 2020-0 Yes 15mg Take 15 mg Univers 15 mg 7-14 by mouth ity of tablet 09:38: at [place] [address] bedtime. Medical Branch mesalamine 2020-0 Yes 1.5g Take 1.5 g U nivers 0.375 gram 7-14 by mouth ity o f 24 hr 09:38: daily. [facility] 49 Medical Branch mirtazapine 2020-0 Yes 15mg Take 15 mg Univers 15 mg 7-14 by mouth ity of tablet 09:38: at [place] [address] bedtime. Medical Branch mesalamine 2020-0 Yes 1.5g Take 1.5 g U nivers 0.375 gram 7-14 by mouth ity o f 24 hr 09:38: daily. [facility] 49 Medical Branch mirtazapine 2020-0 Yes 15mg Take 15 mg Univers 15 mg 7-14 by mouth ity of tablet 09:38: at [place] [address] bedtime. Medical Branch mesalamine 2020-0 Yes 1.5g Take 1.5 g U nivers 0.375 gram 7-14 by mouth ity o f 24 hr 09:38: daily. [facility] 49 Medical Branch mirtazapine 2020-0 Yes 15mg Take 15 mg Univers 15 mg 7-14 by mouth ity of tablet 09:38: at [place] [address] bedtime. Medical Branch mesalamine 2020-0 Yes 1.5g Take 1.5 g U nivers 0.375 gram 7-14 by mouth ity o f 24 hr 09:38: daily. [facility] 49 Medical Branch mirtazapine 2020-0 Yes 15mg Take 15 mg Univers 15 mg 7-14 by mouth ity of tablet 09:38: at [place] [address] bedtime. Medical Branch mesalamine 2020-0 Yes 1.5g Take 1.5 g U nivers 0.375 gram 7-14 by mouth ity o f 24 hr 09:38: daily. [facility] 49 Medical Branch mirtazapine 2020-0 Yes 15mg Take 15 mg Univers 15 mg 7-14 by mouth ity of tablet 09:38: at [place] [address] bedtime. Medical Branch mesalamine 2020-0 Yes 1.5g Take 1.5 g U nivers 0.375 gram 7-14 by mouth ity o f 24 hr 09:38: daily. [place] capsule 49 Medical Branch mirtazapine 2020-0 Yes 15mg Take 15 mg [facility] 15 mg 7-14 by mouth ity of tablet 09:38: at [place] [address] bedtime. Medical Branch mesalamine 2020-0 Yes 1.5g Take 1.5 g U nivers 0.375 gram 7-14 by mouth ity o f 24 hr 09:38: daily. [facility] 49 Medical Branch mirtazapine 2020-0 Yes 15mg Take 15 mg [facility] 15 mg 7-14 by mouth ity of tablet 09:38: at [place] [address] bedtime. Medical Branch mesalamine 2020-0 Yes 1.5g Take 1.5 g U nivers 0.375 gram 7-14 by mouth ity o f 24 hr 09:38: daily. [facility] 49 Medical Branch mirtazapine 2020-0 Yes 15mg Take 15 mg Univers 15 mg 7-14 by mouth ity of tablet 09:38: at [place] [address] bedtime. Medical [place] mesalamine 2020-0 Yes 1.5g Take 1.5 g U nivers 0.375 gram 7-14 by mouth ity o f 24 hr 09:38: daily. [facility] 49 Medical Branch mirtazapine 2020-0 Yes 15mg Take 15 mg [facility] 15 mg 7-14 by mouth ity of tablet 09:38: at [place] [address] bedtime. Medical [place] mesalamine 2020-0 Yes 1.5g Take 1.5 g U nivers 0.375 gram 7-14 by mouth ity o f 24 hr 09:38: daily. [facility] 49 Medical Branch mirtazapine 2020-0 Yes 15mg Take 15 mg Univers 15 mg 7-14 by mouth ity of tablet 09:38: at [place] [address] bedtime. Medical [place] mesalamine 2020-0 Yes 1.5g Take 1.5 g U nivers 0.375 gram 7-14 by mouth ity o f 24 hr 09:38: daily. [facility] 49 Medical Branch mirtazapine 2020-0 Yes 15mg Take 15 mg Univers 15 mg 7-14 by mouth ity of tablet 09:38: at [place] [address] bedtime. Medical Branch mesalamine 2020-0 Yes 1.5g Take 1.5 g U nivers 0.375 gram 7-14 by mouth ity o f 24 hr 09:38: daily. [place] capsule 49 Medical Branch mirtazapine 2020-0 Yes 15mg Take 15 mg [facility] 15 mg 7-14 by mouth ity of tablet 09:38: at [place] [address] bedtime. Medical Branch mesalamine 2020-0 Yes 1.5g Take 1.5 g U nivers 0.375 gram 7-14 by mouth ity o f 24 hr 09:38: daily. [facility] 49 Medical Branch mirtazapine 2020-0 Yes 15mg Take 15 mg Univers 15 mg 7-14 by mouth ity of tablet 09:38: at [place] [address] bedtime. Medical Branch mesalamine 2020-0 Yes 1.5g Take 1.5 g U nivers 0.375 gram 7-14 by mouth ity o f 24 hr 09:38: daily. [facility] 49 Medical Branch mirtazapine 2020-0 Yes 15mg Take 15 mg Univers 15 mg 7-14 by mouth ity of tablet 09:38: at [place] [address] bedtime. Medical Branch mesalamine 2020-0 Yes 1.5g Take 1.5 g U nivers 0.375 gram 7-14 by mouth ity o f 24 hr 09:38: daily. [facility] 49 Medical Branch mirtazapine 2020-0 Yes 15mg Take 15 mg Univers 15 mg 7-14 by mouth ity of tablet 09:38: at [place] [address] bedtime. Medical Branch mesalamine 2020-0 Yes 1.5g Take 1.5 g U nivers 0.375 gram 7-14 by mouth ity o f 24 hr 09:38: daily. [facility] 49 Medical Branch mirtazapine 2020-0 Yes 15mg Take 15 mg [facility] 15 mg 7-14 by mouth ity of tablet 09:38: at [place] [address] bedtime. Medical Branch mesalamine 2020-0 Yes 1.5g Take 1.5 g U nivers 0.375 gram 7-14 by mouth ity o f 24 hr 09:38: daily. [facility] 49 Medical Branch mirtazapine 2020-0 Yes 15mg Take 15 mg Univers 15 mg 7-14 by mouth ity of tablet 09:38: at [place] [address] bedtime. Medical Branch mesalamine 2020-0 Yes 1.5g Take 1.5 g U nivers 0.375 gram 7-14 by mouth ity o f 24 hr 09:38: daily. [place] capsule 49 Medical Branch mirtazapine 2020-0 Yes 15mg Take 15 mg Univers 15 mg 7-14 by mouth ity of tablet 09:38: at [place] [address] bedtime. Medical Branch mesalamine 2020-0 Yes 1.5g Take 1.5 g U nivers 0.375 gram 7-14 by mouth ity o f 24 hr 09:38: daily. [facility] 49 Medical Branch mirtazapine 2020-0 Yes 15mg Take 15 mg Univers 15 mg 7-14 by mouth ity of tablet 09:38: at [place] [address] bedtime. Medical Branch mesalamine 2020-0 Yes 1.5g Take 1.5 g U nivers 0.375 gram 7-14 by mouth ity o f 24 hr 09:38: daily. [facility] 49 Medical Branch mirtazapine 2020-0 Yes 15mg Take 15 mg Univers 15 mg 7-14 by mouth ity of tablet 09:38: at [place] [address] bedtime. Medical Branch mesalamine 2020-0 Yes 1.5g Take 1.5 g U nivers 0.375 gram 7-14 by mouth ity o f 24 hr 09:38: daily. [facility] 49 Medical Branch mirtazapine 2020-0 Yes 15mg Take 15 mg Univers 15 mg 7-14 by mouth ity of tablet 09:38: at [place] [address] bedtime. Medical Branch mesalamine 2020-0 Yes 1.5g Take 1.5 g U nivers 0.375 gram 7-14 by mouth ity o f 24 hr 09:38: daily. [facility] 49 Medical Branch mirtazapine 2020-0 Yes 15mg Take 15 mg Univers 15 mg 7-14 by mouth ity of tablet 09:38: at [place] [address] bedtime. Medical Branch mesalamine 2020-0 Yes 1.5g Take 1.5 g U nivers 0.375 gram 7-14 by mouth ity o f 24 hr 09:38: daily. [facility] 49 Medical Branch mirtazapine 2020-0 Yes 15mg Take 15 mg Univers 15 mg 7-14 by mouth ity of tablet 09:38: at [place] [address] bedtime. Medical Branch mesalamine 2020-0 Yes 1.5g Take 1.5 g U nivers 0.375 gram 7-14 by mouth ity o f 24 hr 09:38: daily. [place] capsule 49 Medical Branch mirtazapine 2020-0 Yes 15mg Take 15 mg [facility] 15 mg 7-14 by mouth ity of tablet 09:38: at [place] [address] bedtime. Medical Branch mesalamine 2020-0 Yes 1.5g Take 1.5 g U nivers 0.375 gram 7-14 by mouth ity o f 24 hr 09:38: daily. [facility] 49 Medical Branch mirtazapine 2020-0 Yes 15mg Take 15 mg [facility] 15 mg 7-14 by mouth ity of tablet 09:38: at [place] [address] bedtime. Medical Branch mesalamine 2020-0 Yes 1.5g Take 1.5 g U nivers 0.375 gram 7-14 by mouth ity o f 24 hr 09:38: daily. [facility] 49 Medical Branch mirtazapine 2020-0 Yes 15mg Take 15 mg Univers 15 mg 7-14 by mouth ity of tablet 09:38: at [place] [address] bedtime. Medical Branch mesalamine 2020-0 Yes 1.5g Take 1.5 g U nivers 0.375 gram 7-14 by mouth ity o f 24 hr 09:38: daily. [facility] 49 Medical Branch mirtazapine 2020-0 Yes 15mg Take 15 mg Univers 15 mg 7-14 by mouth ity of tablet 09:38: at [place] [address] bedtime. Medical Branch mesalamine 2020-0 Yes 1.5g Take 1.5 g U nivers 0.375 gram 7-14 by mouth ity o f 24 hr 09:38: daily. [facility] 49 Medical Branch mirtazapine 2020-0 Yes 15mg Take 15 mg [facility] 15 mg 7-14 by mouth ity of tablet 09:38: at [place] [address] bedtime. Medical Branch mesalamine 2020-0 Yes 1.5g Take 1.5 g U nivers 0.375 gram 7-14 by mouth ity o f 24 hr 09:38: daily. [facility] 49 Medical Branch mirtazapine 2020-0 Yes 15mg Take 15 mg Univers 15 mg 7-14 by mouth ity of tablet 09:38: at [place] [address] bedtime. Medical Branch mesalamine 2020-0 Yes 1.5g Take 1.5 g U nivers 0.375 gram 7-14 by mouth ity o f 24 hr 09:38: daily. [place] capsule 49 Medical Branch mirtazapine 2020-0 Yes 15mg Take 15 mg Univers 15 mg 7-14 by mouth ity of tablet 09:38: at [place] [address] bedtime. Medical Branch mesalamine 2020-0 Yes 1.5g Take 1.5 g U nivers 0.375 gram 7-14 by mouth ity o f 24 hr 09:38: daily. [facility] 49 Medical Branch mirtazapine 2020-0 Yes 15mg Take 15 mg Univers 15 mg 7-14 by mouth ity of tablet 09:38: at [place] [address] bedtime. Medical Branch mesalamine 2020-0 Yes 1.5g Take 1.5 g U nivers 0.375 gram 7-14 by mouth ity o f 24 hr 09:38: daily. [facility] 49 Medical Branch mirtazapine 2020-0 Yes 15mg Take 15 mg Univers 15 mg 7-14 by mouth ity of tablet 09:38: at [place] [address] bedtime. Medical Branch mesalamine 2020-0 Yes 1.5g Take 1.5 g U nivers 0.375 gram 7-14 by mouth ity o f 24 hr 09:38: daily. [place] capsule 49 Medical Branch mirtazapine 2020-0 Yes 15mg Take 15 mg Univers 15 mg 7-14 by mouth ity of tablet 09:38: at [place] [address] bedtime. Medical [place] mesalamine 2020-0 Yes 1.5g Take 1.5 g U nivers 0.375 gram 7-14 by mouth ity o f 24 hr 09:38: daily. [facility] 49 Medical Branch mirtazapine 2020-0 Yes 15mg Take 15 mg Univers 15 mg 7-14 by mouth ity of tablet 09:38: at [place] [address] bedtime. Medical [place] mesalamine 2020-0 Yes 1.5g Take 1.5 g U nivers 0.375 gram 7-14 by mouth ity o f 24 hr 09:38: daily. [facility] 49 Medical Branch mirtazapine 2020-0 Yes 15mg Take 15 mg Univers 15 mg 7-14 by mouth ity of tablet 09:38: at [place] [address] bedtime. Medical Branch mesalamine 2020-0 Yes 1.5g Take 1.5 g U nivers 0.375 gram 7-14 by mouth ity o f 24 hr 09:38: daily. [place] capsule 49 Medical Branch mirtazapine 2020-0 Yes 15mg Take 15 mg Univers 15 mg 7-14 by mouth ity of tablet 09:38: at [place] [address] bedtime. Medical Branch mesalamine 2020-0 Yes 1.5g Take 1.5 g U nivers 0.375 gram 7-14 by mouth ity o f 24 hr 09:38: daily. [place] capsule 49 Medical Branch mirtazapine 2020-0 Yes 15mg Take 15 mg Univers 15 mg 7-14 by mouth ity of tablet 09:38: at [place] [address] bedtime. Medical Branch mesalamine 2020-0 Yes 1.5g Take 1.5 g U nivers 0.375 gram 7-14 by mouth ity o f 24 hr 09:38: daily. [place] capsule 49 Medical Branch mirtazapine 2020-0 Yes 15mg Take 15 mg [facility] 15 mg 7-14 by mouth ity of tablet 09:38: at [place] [address] bedtime. Medical Branch mesalamine 2020-0 Yes 1.5g Take 1.5 g U nivers 0.375 gram 7-14 by mouth ity o f 24 hr 09:38: daily. [place] capsule 49 Medical Branch mirtazapine 2020-0 Yes 15mg Take 15 mg Univers 15 mg 7-14 by mouth ity of tablet 09:38: at [place] [address] bedtime. Medical [place] mesalamine 2020-0 Yes 1.5g Take 1.5 g U nivers 0.375 gram 7-14 by mouth ity o f 24 hr 09:38: daily. [place] capsule 49 Medical Branch mirtazapine 2020-0 Yes 15mg Take 15 mg Univers 15 mg 7-14 by mouth ity of tablet 09:38: at [place] [address] bedtime. Medical [place] mesalamine 2020-0 Yes 1.5g Take 1.5 g U nivers 0.375 gram 7-14 by mouth ity o f 24 hr 09:38: daily. [facility] 49 Medical [place] mirtazapine 1-0 Yes 15mg Take 15 mg Univers 15 mg 7-14 by mouth ity of tablet 09:38: at [place] [address] bedtime. Medical Branch mesalamine 1-0 Yes 1.5g Take 1.5 g U nivers 0.375 gram 7-14 by mouth ity o f 24 hr 09:38: daily. [place] capsule 49 Medical Branch mirtazapine 2020-0 Yes 15mg Take 15 mg [facility] 15 mg 7-14 by mouth ity of tablet 09:38: at [place] [address] bedtime. Medical Branch mesalamine 2020-0 Yes 1.5g Take 1.5 g U nivers 0.375 gram 7-14 by mouth ity o f 24 hr 09:38: daily. [facility] 49 Medical Branch mirtazapine 2020-0 Yes 15mg Take 15 mg Univers 15 mg 7-14 by mouth ity of tablet 09:38: at [place] [address] bedtime. Medical Branch mesalamine 2020-0 Yes 1.5g Take 1.5 g U nivers 0.375 gram 7-14 by mouth ity o f 24 hr 09:38: daily. [facility] 49 Medical Branch mirtazapine 2020-0 Yes 15mg Take 15 mg Univers 15 mg 7-14 by mouth ity of tablet 09:38: at [place] [address] bedtime. Medical Branch mesalamine 2020-0 Yes 1.5g Take 1.5 g U nivers 0.375 gram 7-14 by mouth ity o f 24 hr 09:38: daily. [facility] 49 Medical Branch mirtazapine 2020-0 Yes 15mg Take 15 mg Univers 15 mg 7-14 by mouth ity of tablet 09:38: at [place] [address] bedtime. Medical Branch mesalamine 2020-0 Yes 1.5g Take 1.5 g U nivers 0.375 gram 7-14 by mouth ity o f 24 hr 09:38: daily. [facility] 49 Medical Branch mirtazapine 1-0 Yes 15mg Take 15 mg Univers 15 mg 7-14 by mouth ity of tablet 09:38: at [place] [address] bedtime. Medical Branch mesalamine 1-0 Yes 1.5g Take 1.5 g U nivers 0.375 gram 7-14 by mouth ity o f 24 hr 09:38: daily. [facility] 49 Medical Branch mirtazapine 2021-0 Yes 15mg Take 15 mg Univers 15 mg 7-14 by mouth ity of tablet 09:38: at [place] [address] bedtime. Medical Branch mesalamine 2020-0 Yes 1.5g Take 1.5 g U nivers 0.375 gram 7-14 by mouth ity o f 24 hr 09:38: daily. [place] capsule 49 Medical Branch mirtazapine 2020-0 Yes 15mg Take 15 mg Univers 15 mg 7-14 by mouth ity of tablet 09:38: at [place] [address] bedtime. Medical Branch mesalamine 2020-0 Yes 1.5g Take 1.5 g U nivers 0.375 gram 7-14 by mouth ity o f 24 hr 09:38: daily. [place] capsule 49 Medical Branch mirtazapine 2020-0 Yes 15mg Take 15 mg Univers 15 mg 7-14 by mouth ity of tablet 09:38: at [place] [address] bedtime. Medical [place] mesalamine 2020-0 Yes 1.5g Take 1.5 g U nivers 0.375 gram 7-14 by mouth ity o f 24 hr 09:38: daily. [facility] [address] [facility] Branch mirtazapine 2020-0 Yes 15mg Take 15 mg Univers 15 mg 7-14 by mouth ity of tablet 09:38: at [place] [address] bedtime. Medical Branch mesalamine 2020-0 Yes 1.5g Take 1.5 g U nivers 0.375 gram 7-14 by mouth ity o f 24 hr 09:38: daily. [facility] [address] [facility] Branch predniSONE 1-0 Yes 10mg Take 10 mg U nivers 10 mg 6-22 by mouth ity of tablet 00:00: daily. [address] predniSONE 2021-0 Yes 10mg Take 10 mg U nivers 10 mg 6-22 by mouth ity of tablet 00:00: daily. [place] [facility] predniSONE 2021-0 Yes 10mg Take 10 mg U nivers 10 mg 6-22 by mouth ity of tablet 00:00: daily. [place] [facility] predniSONE 2021-0 Yes 10mg Take 10 mg U nivers 10 mg 6-22 by mouth ity of tablet 00:00: daily. [place] [facility] Branch predniSONE 2021-0 Yes 10mg Take 10 mg U nivers 10 mg 6-22 by mouth ity of tablet 00:00: daily. [place] [facility] predniSONE 2021-0 Yes 10mg Take 10 mg U nivers 10 mg 6-22 by mouth ity of tablet 00:00: daily. [place] [facility] predniSONE 2021-0 Yes 10mg Take 10 mg U nivers 10 mg 6-22 by mouth ity of tablet 00:00: daily. [place] [facility] Branch predniSONE 2021-0 Yes 10mg Take 10 mg U nivers 10 mg 6-22 by mouth ity of tablet 00:00: daily. [place] [facility] Branch predniSONE 2021-0 Yes 10mg Take 10 mg U nivers 10 mg 6-22 by mouth ity of tablet 00:00: daily. [place] [facility] Branch predniSONE 2021-0 Yes 10mg Take 10 mg U nivers 10 mg 6-22 by mouth ity of tablet 00:00: daily. [place] [facility] predniSONE 2021-0 Yes 10mg Take 10 mg U nivers 10 mg 6-22 by mouth ity of tablet 00:00: daily. [place] [facility] predniSONE 2021-0 Yes 10mg Take 10 mg U nivers 10 mg 6-22 by mouth ity of tablet 00:00: daily. [place] [facility] predniSONE 2021-0 Yes 10mg Take 10 mg U nivers 10 mg 6-22 by mouth ity of tablet 00:00: daily. [place] [facility] predniSONE 2021-0 Yes 10mg Take 10 mg U nivers 10 mg 6-22 by mouth ity of tablet 00:00: daily. [place] [facility] predniSONE 2021-0 Yes 10mg Take 10 mg U nivers 10 mg 6-22 by mouth ity of tablet 00:00: daily. [place] [facility] predniSONE 2021-0 Yes 10mg Take 10 mg U nivers 10 mg 6-22 by mouth ity of tablet 00:00: daily. [place] [facility] predniSONE 2021-0 Yes 10mg Take 10 mg U nivers 10 mg 6-22 by mouth ity of tablet 00:00: daily. [address] predniSONE 2021-0 Yes 10mg Take 10 mg U nivers 10 mg 6-22 by mouth ity of tablet 00:00: daily. [address] predniSONE 2021-0 Yes 10mg Take 10 mg U nivers 10 mg 6-22 by mouth ity of tablet 00:00: daily. [address] predniSONE 2021-0 Yes 10mg Take 10 mg U nivers 10 mg 6-22 by mouth ity of tablet 00:00: daily. [place] 00 Medical Branch predniSONE 2021-0 Yes 10mg Take 10 mg U nivers 10 mg 6-22 by mouth ity of tablet 00:00: daily. [place] [facility] Branch predniSONE 2021-0 Yes 10mg Take 10 mg U nivers 10 mg 6-22 by mouth ity of tablet 00:00: daily. [place] [facility] predniSONE 2021-0 Yes 10mg Take 10 mg U nivers 10 mg 6-22 by mouth ity of tablet 00:00: daily. [place] [facility] Branch predniSONE 2021-0 Yes 10mg Take 10 mg U nivers 10 mg 6-22 by mouth ity of tablet 00:00: daily. [place] [facility] predniSONE 2021-0 Yes 10mg Take 10 mg U nivers 10 mg 6-22 by mouth ity of tablet 00:00: daily. [place] [facility] predniSONE 2021-0 Yes 10mg Take 10 mg U nivers 10 mg 6-22 by mouth ity of tablet 00:00: daily. [address] predniSONE 2021-0 Yes 10mg Take 10 mg U nivers 10 mg 6-22 by mouth ity of tablet 00:00: daily. [place] [facility] predniSONE 2021-0 Yes 10mg Take 10 mg U nivers 10 mg 6-22 by mouth ity of tablet 00:00: daily. [place] [facility] predniSONE 2021-0 Yes 10mg Take 10 mg U nivers 10 mg 6-22 by mouth ity of tablet 00:00: daily. [address] predniSONE 2021-0 Yes 10mg Take 10 mg U nivers 10 mg 6-22 by mouth ity of tablet 00:00: daily. [place] [facility] predniSONE 2021-0 Yes 10mg Take 10 mg U nivers 10 mg 6-22 by mouth ity of tablet 00:00: daily. [address] predniSONE 2021-0 Yes 10mg Take 10 mg U nivers 10 mg 6-22 by mouth ity of tablet 00:00: daily. [address] predniSONE 2021-0 Yes 10mg Take 10 mg U nivers 10 mg 6-22 by mouth ity of tablet 00:00: daily. [address] predniSONE 2021-0 Yes 10mg Take 10 mg U nivers 10 mg 6-22 by mouth ity of tablet 00:00: daily. [address] predniSONE 2021-0 Yes 10mg Take 10 mg U nivers 10 mg 6-22 by mouth ity of tablet 00:00: daily. [place] [facility] predniSONE 2021-0 Yes 10mg Take 10 mg U nivers 10 mg 6-22 by mouth ity of tablet 00:00: daily. [place] [facility] Branch predniSONE 2021-0 Yes 10mg Take 10 mg U nivers 10 mg 6-22 by mouth ity of tablet 00:00: daily. [place] [facility] Branch predniSONE 2021-0 Yes 10mg Take 10 mg U nivers 10 mg 6-22 by mouth ity of tablet 00:00: daily. [address] Branch predniSONE 2021-0 Yes 10mg Take 10 mg U nivers 10 mg 6-22 by mouth ity of tablet 00:00: daily. [address] Branch predniSONE 2021-0 Yes 10mg Take 10 mg U nivers 10 mg 6-22 by mouth ity of tablet 00:00: daily. [address] predniSONE 2021-0 Yes 10mg Take 10 mg U nivers 10 mg 6-22 by mouth ity of tablet 00:00: daily. [address] Branch predniSONE 2021-0 Yes 10mg Take 10 mg U nivers 10 mg 6-22 by mouth ity of tablet 00:00: daily. [address] predniSONE 2021-0 Yes 10mg Take 10 mg U nivers 10 mg 6-22 by mouth ity of tablet 00:00: daily. [address] predniSONE 2021-0 Yes 10mg Take 10 mg U nivers 10 mg 6-22 by mouth ity of tablet 00:00: daily. [address] predniSONE 2021-0 Yes 10mg Take 10 mg U nivers 10 mg 6-22 by mouth ity of tablet 00:00: daily. [address] Branch predniSONE 2021-0 Yes 10mg Take 10 mg U nivers 10 mg 6-22 by mouth ity of tablet 00:00: daily. [address] Branch predniSONE 2021-0 Yes 10mg Take 10 mg U nivers 10 mg 6-22 by mouth ity of tablet 00:00: daily. [address] Branch predniSONE 2021-0 Yes 10mg Take 10 mg U nivers 10 mg 6-22 by mouth ity of tablet 00:00: daily. [address] predniSONE 2021-0 Yes 10mg Take 10 mg U nivers 10 mg 6-22 by mouth ity of tablet 00:00: daily. [place] [facility] predniSONE 1-0 Yes 10mg Take 10 mg U nivers 10 mg 6-22 by mouth ity of tablet 00:00: daily. [place] [facility] predniSONE 2021-0 Yes 10mg Take 10 mg U nivers 10 mg 6-22 by mouth ity of tablet 00:00: daily. [place] [facility] predniSONE 2021-0 Yes 10mg Take 10 mg U nivers 10 mg 6-22 by mouth ity of tablet 00:00: daily. [place] [facility] predniSONE 2021-0 Yes 10mg Take 10 mg U nivers 10 mg 6-22 by mouth ity of tablet 00:00: daily. [place] [facility] spironolact 1-0 Yes 25mg Take 25 mg Univers one 25 mg 6-08 by mouth ity of tablet 00:00: daily. [place] [facility] spironolact 1-0 Yes 25mg Take 25 mg Univers one 25 mg 6-08 by mouth ity of tablet 00:00: daily. [place] [facility] spironolact 1-0 Yes 25mg Take 25 mg Univers one 25 mg 6-08 by mouth ity of tablet 00:00: daily. [place] [facility] spironolact 2020-0 Yes 25mg Take 25 mg Univers one 25 mg 6-08 by mouth ity of tablet 00:00: daily. [place] [facility] spironolact 1-0 Yes 25mg Take 25 mg Univers one 25 mg 6-08 by mouth ity of tablet 00:00: daily. [place] [facility] spironolact 1-0 Yes 25mg Take 25 mg Univers one 25 mg 6-08 by mouth ity of tablet 00:00: daily. [place] [facility] spironolact 1-0 Yes 25mg Take 25 mg Univers one 25 mg 6-08 by mouth ity of tablet 00:00: daily. [place] [facility] spironolact 1-0 Yes 25mg Take 25 mg Univers one 25 mg 6-08 by mouth ity of tablet 00:00: daily. [address] spironolact 1-0 Yes 25mg Take 25 mg Univers one 25 mg 6-08 by mouth ity of tablet 00:00: daily. [place] [facility] spironolact 2021-0 Yes 25mg Take 25 mg Univers one 25 mg 6-08 by mouth ity of tablet 00:00: daily. [place] [facility] spironolact 2020-0 Yes 25mg Take 25 mg Univers one 25 mg 6-08 by mouth ity of tablet 00:00: daily. [place] [facility] spironolact 202-0 Yes 25mg Take 25 mg Univers one 25 mg 6-08 by mouth ity of tablet 00:00: daily. [place] [facility] spironolact 2020-0 Yes 25mg Take 25 mg Univers one 25 mg 6-08 by mouth ity of tablet 00:00: daily. [place] [facility] spironolact 2020-0 Yes 25mg Take 25 mg Univers one 25 mg 6-08 by mouth ity of tablet 00:00: daily. [place] [facility] spironolact 2020-0 Yes 25mg Take 25 mg Univers one 25 mg 6-08 by mouth ity of tablet 00:00: daily. [place] [facility] spironolact 2020-0 Yes 25mg Take 25 mg Univers one 25 mg 6-08 by mouth ity of tablet 00:00: daily. [place] [facility] spironolact 2020-0 Yes 25mg Take 25 mg Univers one 25 mg 6-08 by mouth ity of tablet 00:00: daily. [place] [facility] spironolact 2020-0 Yes 25mg Take 25 mg Univers one 25 mg 6-08 by mouth ity of tablet 00:00: daily. [place] [facility] spironolact 2020-0 Yes 25mg Take 25 mg Univers one 25 mg 6-08 by mouth ity of tablet 00:00: daily. [place] [facility] spironolact 2020-0 Yes 25mg Take 25 mg Univers one 25 mg 6-08 by mouth ity of tablet 00:00: daily. [place] [facility] spironolact 2020-0 Yes 25mg Take 25 mg Univers one 25 mg 6-08 by mouth ity of tablet 00:00: daily. [address] spironolact 2020-0 Yes 25mg Take 25 mg [facility] one 25 mg 6-08 by mouth ity of tablet 00:00: daily. [address] spironolact 2020-0 Yes 25mg Take 25 mg [facility] one 25 mg 6-08 by mouth ity of tablet 00:00: daily. [place] [facility] spironolact 2020-0 Yes 25mg Take 25 mg [facility] one 25 mg 6-08 by mouth ity of tablet 00:00: daily. [place] [facility] spironolact 2020-0 Yes 25mg Take 25 mg [facility] one 25 mg 6-08 by mouth ity of tablet 00:00: daily. [place] [facility] spironolact 2020-0 Yes 25mg Take 25 mg Univers one 25 mg 6-08 by mouth ity of tablet 00:00: daily. [place] [facility] spironolact 2020-0 Yes 25mg Take 25 mg [facility] one 25 mg 6-08 by mouth ity of tablet 00:00: daily. [place] [facility] spironolact 2020-0 Yes 25mg Take 25 mg [facility] one 25 mg 6-08 by mouth ity of tablet 00:00: daily. [place] [facility] spironolact 2020-0 Yes 25mg Take 25 mg [facility] one 25 mg 6-08 by mouth ity of tablet 00:00: daily. [place] [facility] spironolact 2020-0 Yes 25mg Take 25 mg [facility] one 25 mg 6-08 by mouth ity of tablet 00:00: daily. [place] [facility] spironolact 2020-0 Yes 25mg Take 25 mg [facility] one 25 mg 6-08 by mouth ity of tablet 00:00: daily. [place] [facility] spironolact 2020-0 Yes 25mg Take 25 mg [facility] one 25 mg 6-08 by mouth ity of tablet 00:00: daily. [place] [facility] spironolact 2020-0 Yes 25mg Take 25 mg [facility] one 25 mg 6-08 by mouth ity of tablet 00:00: daily. [place] [facility] spironolact 2020-0 Yes 25mg Take 25 mg [facility] one 25 mg 6-08 by mouth ity of tablet 00:00: daily. [place] [facility] spironolact 2020-0 Yes 25mg Take 25 mg [facility] one 25 mg 6-08 by mouth ity of tablet 00:00: daily. [place] [facility] spironolact 2020-0 Yes 25mg Take 25 mg [facility] one 25 mg 6-08 by mouth ity of tablet 00:00: daily. [place] [facility] spironolact 2020-0 Yes 25mg Take 25 mg [facility] one 25 mg 6-08 by mouth ity of tablet 00:00: daily. [place] [facility] spironolact 2020-0 Yes 25mg Take 25 mg [facility] one 25 mg 6-08 by mouth ity of tablet 00:00: daily. [place] [facility] spironolact 202-0 Yes 25mg Take 25 mg [facility] one 25 mg 6-08 by mouth ity of tablet 00:00: daily. [place] [facility] spironolact 2020-0 Yes 25mg Take 25 mg [facility] one 25 mg 6-08 by mouth ity of tablet 00:00: daily. [place] [facility] spironolact 2020-0 Yes 25mg Take 25 mg [facility] one 25 mg 6-08 by mouth ity of tablet 00:00: daily. [place] [facility] spironolact 2020-0 Yes 25mg Take 25 mg [facility] one 25 mg 6-08 by mouth ity of tablet 00:00: daily. [place] [facility] spironolact 2020-0 Yes 25mg Take 25 mg [facility] one 25 mg 6-08 by mouth ity of tablet 00:00: daily. [place] [facility] spironolact 2020-0 Yes 25mg Take 25 mg [facility] one 25 mg 6-08 by mouth ity of tablet 00:00: daily. [place] [facility] spironolact 2020-0 Yes 25mg Take 25 mg [facility] one 25 mg 6-08 by mouth ity of tablet 00:00: daily. [place] [facility] spironolact 2020-0 Yes 25mg Take 25 mg [facility] one 25 mg 6-08 by mouth ity of tablet 00:00: daily. [place] [facility] spironolact 2020-0 Yes 25mg Take 25 mg [facility] one 25 mg 6-08 by mouth ity of tablet 00:00: daily. [place] [facility] spironolact 2020-0 Yes 25mg Take 25 mg [facility] one 25 mg 6-08 by mouth ity of tablet 00:00: daily. [place] [facility] spironolact 202-0 Yes 25mg Take 25 mg [facility] one 25 mg 6-08 by mouth ity of tablet 00:00: daily. [address] spironolact 2020-0 Yes 25mg Take 25 mg [facility] one 25 mg 6-08 by mouth ity of tablet 00:00: daily. [place] [address] [facility] spironolact 2021-0 Yes 25mg Take 25 mg [facility] one 25 mg 6-08 by mouth ity of tablet 00:00: daily. [place] [facility] spironolact 2021-0 Yes 25mg Take 25 mg [facility] one 25 mg 6-08 by mouth ity of tablet 00:00: daily. [place] [address] [facility] spironolact 2021-0 Yes 25mg Take 25 mg [facility] one 25 mg 6-08 by mouth ity of tablet 00:00: daily. [place] [address] [facility] neomycin-po 2021-0 Yes [id number] 3[drp] Place 3 [facility] lymyxin-hyd 4-14 Drops in ity of rocortisone 00:00: left ear 4 [place] 3.5-000- (four) Medica l 1 times Branch mg/mL-unit/ daily. mL-% otic susp neomycin-po 2021-0 Yes [id number] 3[drp] Place 3 [facility] lymyxin-hyd 4-14 Drops in ity of rocortisone 00:00: left ear 4 [place] 3.5-000 (four) Medica l 1 times Branch mg/mL-unit/ daily. mL-% otic susp neomycin-po 2021-0 Yes [id number] 3[drp] Place 3 [facility] lymyxin-hyd 4-14 Drops in ity of rocortisone 00:00: left ear 4 [place] 3.5-,000- 00 (four) Medica l 1 times Branch mg/mL-unit/ daily. mL-% otic susp neomycin-po 2021-0 Yes [id number] 3[drp] Place 3 [facility] lymyxin-hyd 4-14 Drops in ity of rocortisone 00:00: left ear 4 [place] 3.5-,000- 00 (four) Medica l 1 times Branch mg/mL-unit/ daily. mL-% otic susp neomycin-po 2021-0 Yes [id number] 3[drp] Place 3 [facility] lymyxin-hyd 4-14 Drops in ity of rocortisone 00:00: left ear 4 [place] 3.5-,000- 00 (four) Medica l 1 times Branch mg/mL-unit/ daily. mL-% otic susp neomycin-po 2021-0 Yes [id number] 3[drp] Place 3 [facility] lymyxin-hyd 4-14 Drops in ity of rocortisone 00:00: left ear 4 [place] 3.5-10,000- 00 (four) Medica l 1 times Branch mg/mL-unit/ daily. mL-% otic susp neomycin-po 2021-0 Yes [id number] 3[drp] Place 3 [facility] lymyxin-hyd 4-14 Drops in ity of rocortisone 00:00: left ear 4 [place] 3.5-10,000- 00 (four) Medica l 1 times Branch mg/mL-unit/ daily. mL-% otic susp neomycin-po 2021-0 Yes [id number] 3[drp] Place 3 [facility] lymyxin-hyd 4-14 Drops in ity of rocortisone 00:00: left ear 4 [place] 3.5-10000- (four) Medica l 1 times Branch mg/mL-unit/ daily. mL-% otic susp neomycin-po 2021-0 Yes [id number] 3[drp] Place 3 [facility] lymyxin-hyd 4-14 Drops in ity of rocortisone 00:00: left ear 4 [place] 3.5-000 00 (four) Medica l 1 times Branch mg/mL-unit/ daily. mL-% otic susp neomycin-po 2021-0 Yes [id number] 3[drp] Place 3 [facility] lymyxin-hyd 4-14 Drops in ity of rocortisone 00:00: left ear 4 [place] 3.5-000 (four) Medica l 1 times Branch mg/mL-unit/ daily. mL-% otic susp neomycin-po 2021-0 Yes [id number] 3[drp] Place 3 [facility] lymyxin-hyd 4-14 Drops in ity of rocortisone 00:00: left ear 4 [place] 3.5-,000- 00 (four) Medica l 1 times Branch mg/mL-unit/ daily. mL-% otic susp neomycin-po 2021-0 Yes [id number] 3[drp] Place 3 [facility] lymyxin-hyd 4-14 Drops in ity of rocortisone 00:00: left ear 4 [place] 3.5-000- 00 (four) Medica l 1 times Branch mg/mL-unit/ daily. mL-% otic susp neomycin-po 2021-0 Yes [id number] 3[drp] Place 3 [facility] lymyxin-hyd 4-14 Drops in ity of rocortisone 00:00: left ear 4 [place] 3.5-10,000- 00 (four) Medica l 1 times Branch mg/mL-unit/ daily. mL-% otic susp neomycin-po 2021-0 Yes [id number] 3[drp] Place 3 [facility] lymyxin-hyd 4-14 Drops in ity of rocortisone 00:00: left ear 4 [place] 3.5-10000- (four) Medica l 1 times Branch mg/mL-unit/ daily. mL-% otic susp neomycin-po 2021-0 Yes [id number] 3[drp] Place 3 [facility] lymyxin-hyd 4-14 Drops in ity of rocortisone 00:00: left ear 4 [place] 3.5-000 (four) Medica l 1 times Branch mg/mL-unit/ daily. mL-% otic susp neomycin-po 2021-0 Yes [id number] 3[drp] Place 3 [facility] lymyxin-hyd 4-14 Drops in ity of rocortisone 00:00: left ear 4 [place] 3.5-000 (four) Medica l 1 times Branch mg/mL-unit/ daily. mL-% otic susp neomycin-po 2021-0 Yes [id number] 3[drp] Place 3 [facility] lymyxin-hyd 4-14 Drops in ity of rocortisone 00:00: left ear 4 [place] 3.5-000 (four) Medica l 1 times Branch mg/mL-unit/ daily. mL-% otic susp neomycin-po 2021-0 Yes [id number] 3[drp] Place 3 [facility] lymyxin-hyd 4-14 Drops in ity of rocortisone 00:00: left ear 4 [place] 3.5-10,000 (four) Medica l 1 times Branch mg/mL-unit/ daily. mL-% otic susp neomycin-po 2021-0 Yes [id number] 3[drp] Place 3 [facility] lymyxin-hyd 4-14 Drops in ity of rocortisone 00:00: left ear 4 [place] 3.5-10,000- 00 (four) Medica l 1 times Branch mg/mL-unit/ daily. mL-% otic susp neomycin-po 2021-0 Yes [id number] 3[drp] Place 3 [facility] lymyxin-hyd 4-14 Drops in ity of rocortisone 00:00: left ear 4 [place] 3.5-,000- 00 (four) Medica l 1 times Branch mg/mL-unit/ daily. mL-% otic susp neomycin-po 2021-0 Yes [id number] 3[drp] Place 3 [facility] lymyxin-hyd 4-14 Drops in ity of rocortisone 00:00: left ear 4 [place] 3.5-000 (four) Medica l 1 times Branch mg/mL-unit/ daily. mL-% otic susp neomycin-po 2021-0 Yes [id number] 3[drp] Place 3 [facility] lymyxin-hyd 4-14 Drops in ity of rocortisone 00:00: left ear 4 [place] 3.5- (four) Medica l 1 times Branch mg/mL-unit/ daily. mL-% otic susp neomycin-po 2021-0 Yes [id number] 3[drp] Place 3 [facility] lymyxin-hyd 4-14 Drops in ity of rocortisone 00:00: left ear 4 [place] 3.5-,000 (four) Medica l 1 times Branch mg/mL-unit/ daily. mL-% otic susp neomycin-po 2021-0 Yes [id number] 3[drp] Place 3 [facility] lymyxin-hyd 4-14 Drops in ity of rocortisone 00:00: left ear 4 [place] 3.5-10,000 00 (four) Medica l 1 times Branch mg/mL-unit/ daily. mL-% otic susp neomycin-po 2021-0 Yes [id number] 3[drp] Place 3 [facility] lymyxin-hyd 4-14 Drops in ity of rocortisone 00:00: left ear 4 [place] 3.5-10,000- (four) Medica l 1 times Branch mg/mL-unit/ daily. mL-% otic susp neomycin-po 2021-0 Yes [id number] 3[drp] Place 3 [facility] lymyxin-hyd 4-14 Drops in ity of rocortisone 00:00: left ear 4 [place] 3.5-10,000- 00 (four) Medica l 1 times Branch mg/mL-unit/ daily. mL-% otic susp neomycin-po 2021-0 Yes [id number] 3[drp] Place 3 [facility] lymyxin-hyd 4-14 Drops in ity of rocortisone 00:00: left ear 4 [place] 3.5-10,000- 00 (four) Medica l 1 times Branch mg/mL-unit/ daily. mL-% otic susp neomycin-po 2021-0 Yes [id number] 3[drp] Place 3 [facility] lymyxin-hyd 4-14 Drops in ity of rocortisone 00:00: left ear 4 [place] 3.5-10,000- 00 (four) Medica l 1 times Branch mg/mL-unit/ daily. mL-% otic susp neomycin-po 2021-0 Yes [id number] 3[drp] Place 3 [facility] lymyxin-hyd 4-14 Drops in ity of rocortisone 00:00: left ear 4 [place] 3.5-10,000- 00 (four) Medica l 1 times Branch mg/mL-unit/ daily. mL-% otic susp neomycin-po 2021-0 Yes [id number] 3[drp] Place 3 [facility] lymyxin-hyd 4-14 Drops in ity of rocortisone 00:00: left ear 4 [place] 3.5-10,000- 00 (four) Medica l 1 times Branch mg/mL-unit/ daily. mL-% otic susp neomycin-po 2021-0 Yes [id number] 3[drp] Place 3 [facility] lymyxin-hyd 4-14 Drops in ity of rocortisone 00:00: left ear 4 [place] 3.5-10,000- 00 (four) Medica l 1 times Branch mg/mL-unit/ daily. mL-% otic susp neomycin-po 2021-0 Yes [id number] 3[drp] Place 3 [facility] lymyxin-hyd 4-14 Drops in ity of rocortisone 00:00: left ear 4 [place] 3.5-10,000- 00 (four) Medica l 1 times Branch mg/mL-unit/ daily. mL-% otic susp neomycin-po 2021-0 Yes [id number] 3[drp] Place 3 [facility] lymyxin-hyd 4-14 Drops in ity of rocortisone 00:00: left ear 4 [place] 3.5-000- 00 (four) Medica l 1 times Branch mg/mL-unit/ daily. mL-% otic susp neomycin-po 2021-0 Yes [id number] 3[drp] Place 3 [facility] lymyxin-hyd 4-14 Drops in ity of rocortisone 00:00: left ear 4 [place] 3.5-000- 00 (four) Medica l 1 times Branch mg/mL-unit/ daily. mL-% otic susp neomycin-po 2021-0 Yes [id number] 3[drp] Place 3 [facility] lymyxin-hyd 4-14 Drops in ity of rocortisone 00:00: left ear 4 [place] 3.5-000- (four) Medica l 1 times Branch mg/mL-unit/ daily. mL-% otic susp neomycin-po 2021-0 Yes [id number] 3[drp] Place 3 [facility] lymyxin-hyd 4-14 Drops in ity of rocortisone 00:00: left ear 4 [place] 3.5-000- 00 (four) Medica l 1 times Branch mg/mL-unit/ daily. mL-% otic susp neomycin-po 2021-0 Yes [id number] 3[drp] Place 3 [facility] lymyxin-hyd 4-14 Drops in ity of rocortisone 00:00: left ear 4 [place] 3.5-000- 00 (four) Medica l 1 times Branch mg/mL-unit/ daily. mL-% otic susp neomycin-po 2021-0 2022- No [id number] 3[drp] Place 3 [facility] lymyxin-hyd 4-14 12-21 Drops in ity of rocortisone 00:00: 00:00 left ear 4 [place] 3.5-10,000- 00 :00 (four) Medica l 1 times Branch mg/mL-unit/ daily. mL-% otic susp neomycin-po 2021-0 2- No [id number] 3[drp] Place 3 [facility] lymyxin-hyd 4-14 12-21 Drops in ity of rocortisone 00:00: 00:00 left ear 4 [place] 3.5-10,000- 00 :00 (four) Medica l 1 [...] [place] mcg DsDv 00 EVERY DAY [facility] TRELEGY 2020- Yes INHALE 1 Univer s ELLIPTA 2-24 PUFF BY ity of 100-62.5-25 00:00: MOUTH [place] mcg DsDv 00 EVERY DAY [facility] [place] TRELEGY 2019- Yes INHALE 1 Univer s ELLIPTA 2-24 PUFF BY ity of 100-62.5-25 00:00: MOUTH [place] mcg DsDv 00 EVERY DAY [facility] [place] TRELEGY 2019- Yes INHALE 1 Univer s ELLIPTA 2-24 PUFF BY ity of 100-62.5-25 00:00: MOUTH [place] mcg DsDv 00 [facility] Univer s ELLIPTA 2-24 PUFF BY ity of 100-62.5-25 00:00: MOUTH [place] mcg DsDv 00 [facility] DAY [facility] INHALE 1 Univer s ELLIPTA 2-24 PUFF BY ity of 100-62.5-25 00:00: MOUTH [place] mcg DsDv 00 EVERY DAY [facility]- [facility] INHALE 1 Univer s ELLIPTA 2-24 PUFF BY ity of 100-62.5-25 00:00: MOUTH [place] mcg DsDv 00 [facility] DAY [facility] INHALE 1 Univer s ELLIPTA 2-24 PUFF BY ity of 100-62.5-25 00:00: MOUTH [place] mcg DsDv 00 EVERY DAY [facility] [place] TRELEGY 2020- Yes INHALE 1 Univer s ELLIPTA 2-24 PUFF BY ity of 100-62.5-25 00:00: MOUTH [place] mcg DsDv 00 EVERY DAY [facility] [place] TRELEGY 2020- Yes INHALE 1 Univer s ELLIPTA 2-24 PUFF BY ity of 100-62.5-25 00:00: MOUTH [place] mcg DsDv 00 EVERY DAY [facility] [place] TRELEGY 2020- Yes INHALE 1 Univer s ELLIPTA 2-24 PUFF BY ity of 100-62.5-25 00:00: MOUTH [place] mcg DsDv 00 EVERY DAY [facility] [place] TRELEGY 2020- Yes INHALE 1 Univer s ELLIPTA 2-24 PUFF BY ity of 100-62.5-25 00:00: MOUTH [place] mcg DsDv 00 EVERY DAY [facility] [place] TRELEGY 2020- Yes INHALE 1 Univer s ELLIPTA 2-24 PUFF BY ity of 100-62.5-25 00:00: MOUTH [place] mcg DsDv 00 EVERY DAY [facility] [place] TRELEGY 2020- Yes INHALE 1 Univer s ELLIPTA 2-24 PUFF BY ity of 100-62.5-25 00:00: MOUTH [place] mcg DsDv 00 EVERY DAY [facility] [place] TRELEGY 2020- Yes INHALE 1 Univer s ELLIPTA 2-24 PUFF BY ity of 100-62.5-25 00:00: MOUTH [place] mcg DsDv 00 EVERY DAY [facility] [place] TRELEGY 2020- Yes INHALE 1 Univer s ELLIPTA 2-24 PUFF BY ity of 100-62.5-25 00:00: MOUTH [place] mcg DsDv 00 EVERY DAY [facility] [place] TRELEGY 2020- Yes INHALE 1 Univer s ELLIPTA 2-24 PUFF BY ity of 100-62.5-25 00:00: MOUTH [place] mcg DsDv 00 EVERY DAY [facility] [place] TRELEGY 2020- Yes INHALE 1 Univer s ELLIPTA 2-24 PUFF BY ity of 100-62.5-25 00:00: MOUTH [place] mcg DsDv 00 EVERY DAY [facility] [place] TRELEGY 2020- Yes INHALE 1 Univer s ELLIPTA 2-24 PUFF BY ity of 100-62.5-25 00:00: MOUTH [place] mcg DsDv 00 EVERY DAY [facility] [place] TRELEGY 2020- Yes INHALE 1 Univer s ELLIPTA 2-24 PUFF BY ity of 100-62.5-25 00:00: MOUTH [place] mcg DsDv 00 EVERY DAY [facility] [place] TRELEGY 2020- Yes INHALE 1 Univer s ELLIPTA 2-24 PUFF BY ity of 100-62.5-25 00:00: MOUTH [place] mcg DsDv 00 EVERY DAY [facility] [place] TRELEGY 2020-1 Yes INHALE 1 Univer s [...] [place] mcg DsDv 00 EVERY DAY [facility] TRELEGY 2019- Yes INHALE 1 Univer s ELLIPTA 2-24 PUFF BY ity of 100-62.5-25 00:00: MOUTH [place] mcg DsDv 00 EVERY DAY [facility] TRELEGY 2019- Yes INHALE 1 Univer s ELLIPTA 2-24 PUFF BY ity of 100-62.5-25 00:00: MOUTH [place] mcg DsDv 00 EVERY DAY [facility] [place] TRELEGY 2019- Yes INHALE 1 Univer s ELLIPTA 2-24 PUFF BY ity of 100-62.5-25 00:00: MOUTH [place] mcg DsDv 00 EVERY DAY [facility] TRELEGY 2019- Yes INHALE 1 Univer s ELLIPTA 2-24 PUFF BY ity of 100-62.5-25 00:00: MOUTH [place] mcg DsDv 00 EVERY DAY [facility] TRELEGY 2019- Yes INHALE 1 Univer s ELLIPTA 2-24 PUFF BY ity of 100-62.5-25 00:00: MOUTH [place] mcg DsDv 00 EVERY DAY [facility] TRELEGY 2019- Yes INHALE 1 Univer s ELLIPTA 2-24 PUFF BY ity of 100-62.5-25 00:00: MOUTH [place] mcg DsDv 00 EVERY DAY [facility] TRELEGY 2019- Yes INHALE 1 Univer s ELLIPTA 2-24 PUFF BY ity of 100-62.5-25 00:00: MOUTH [place] mcg DsDv 00 EVERY DAY [facility] TRELEGY 2019- Yes INHALE 1 Univer s ELLIPTA 2-24 PUFF BY ity of 100-62.5-25 00:00: MOUTH [place] mcg DsDv 00 EVERY DAY [facility] [place] TRELEGY 2019- Yes INHALE 1 Univer s ELLIPTA 2-24 PUFF BY ity of 100-62.5-25 00:00: MOUTH [place] mcg DsDv 00 EVERY DAY [facility] [place] TRELEGY 2019- Yes INHALE 1 Univer s [...] by mouth ity of 00:00: at bedtime [place] 00 as needed. [facility] zolpidem 10 2019-11 Yes 10mg Take 10 mg [facility] mg tablet 2-14 by mouth ity of 00:00: at bedtime [place] 00 as needed. [facility] zolpidem 10 2019-11 Yes 10mg Take 10 mg [facility] mg tablet 2-14 by mouth ity of 00:00: at bedtime [place] 00 as needed. [facility] zolpidem 10 2019-11 Yes 10mg Take 10 mg [facility] mg tablet 2-14 by mouth ity of 00:00: at bedtime [place] 00 as needed. [facility] zolpidem 10 2019-11 Yes 10mg Take 10 mg [facility] mg tablet 2-14 by mouth ity of 00:00: at bedtime [place] 00 as needed. [facility] zolpidem 10 2019-11 Yes 10mg Take 10 mg [facility] mg tablet 2-14 by mouth ity of 00:00: at bedtime [place] 00 as needed. [facility] zolpidem 10 2019-11 Yes 10mg Take 10 mg [facility] mg tablet 2-14 by mouth ity of 00:00: at bedtime [place] 00 as needed. [facility] zolpidem 10 [...] IN THE ity of capsule 00:00: MORNING [place] 00 AND THEN Q Medical 8 H PRF Branch ABDOMINAL PAIN. dicyclomine 2019- Yes TK 1 C PO U nivers 10 mg 1-24 IN THE ity of capsule 00:00: MORNING 00 AND THEN Q Medical 8 H PRF Branch ABDOMINAL PAIN. MOTEGRITY 2020- Yes TK 1 T PO Uni vers tablet 1-12 D ity of 00:00: [place] [facility] MOTEGRITY 2020- Yes TK 1 T PO Uni vers tablet 1-12 D ity of 00:00: [place] [facility] MOTEGRITY 2020- Yes TK 1 T PO Uni vers tablet 1-12 D ity of 00:00: [place] [facility] MOTEGRITY 2020- Yes TK 1 T PO Uni vers tablet 1-12 D ity of 00:00: [place] [facility] MOTEGRITY 2020- Yes TK 1 T PO Uni vers tablet 1-12 D ity of 00:00: [place] [facility] MOTEGRITY 2020- Yes TK 1 T PO Uni vers tablet 1-12 D ity of 00:00: [place] [facility] MOTEGRITY 2020- Yes TK 1 T PO Uni vers tablet 1-12 D ity of 00:00: [place] [facility] MOTEGRITY 2020- Yes TK 1 T PO Uni vers tablet 1-12 D ity of 00:00: [place] [facility] MOTEGRITY 2020- Yes TK 1 T PO Uni vers tablet 1-12 D ity of 00:00: [place] 00 [facility] MOTEGRITY 2020- Yes TK 1 T PO Uni vers tablet 1-12 D ity of 00:00: [place] 00 [facility] MOTEGRITY 2020- Yes TK 1 T PO Uni vers tablet 1-12 D ity of 00:00: [place] [facility] MOTEGRITY 2020- Yes TK 1 T PO Uni vers tablet 1-12 D ity of 00:00: [place] 00 [facility] MOTEGRITY 2020- Yes TK 1 T PO Uni vers tablet 1-12 D ity of 00:00: [place] 00 [facility] MOTEGRITY 2020- Yes TK 1 T PO Uni vers tablet 1-12 D ity of 00:00: [place] [facility] MOTEGRITY 2020- Yes TK 1 T PO Uni vers tablet 1-12 D ity of 00:00: [place] [facility] MOTEGRITY 2020- Yes TK 1 T PO Uni vers tablet 1-12 D ity of 00:00: [place] [facility] MOTEGRITY 2020- Yes TK 1 T PO Uni vers tablet 1-12 D ity of 00:00: [place] [facility] MOTEGRITY 2020- Yes TK 1 T PO Uni vers tablet 1-12 D ity of 00:00: [address] MOTEGRITY 2019- Yes TK 1 T PO Uni vers tablet 1-12 D ity of 00:00: [place] [facility] MOTRITY 2020- Yes TK 1 T PO Uni vers tablet 1-12 D ity of 00:00: [place] [facility] MOTEGRITY 2020- Yes TK 1 T PO Uni vers tablet 1-12 D ity of 00:00: [place] [facility] MOTEGRITY 2020- Yes TK 1 T PO Uni vers tablet 1-12 D ity of 00:00: [place] [facility] MOTEGRITY 2020- Yes TK 1 T PO Uni vers tablet 1-12 D ity of 00:00: [place] [facility] MOTEGRITY 2020- Yes TK 1 T PO Uni vers tablet 1-12 D ity of 00:00: [place] [facility] MOTEGRITY 2020- Yes TK 1 T PO Uni vers tablet 1-12 D ity of 00:00: [place] [facility] MOTEGRITY 2020- Yes TK 1 T PO Uni vers tablet 1-12 D ity of 00:00: [place] 00 [facility] MOTEGRITY 2020- Yes TK 1 T PO Uni vers tablet 1-12 D ity of 00:00: [place] 00 [facility] MOTRITY 2020- Yes TK 1 T PO Uni vers tablet 1-12 D ity of 00:00: [place] 00 [facility] MOTEGRITY 2020- Yes TK 1 T PO Uni vers tablet 1-12 D ity of 00:00: [place] [facility] MOTEGRITY 2020- Yes TK 1 T PO Uni vers tablet 1-12 D ity of 00:00: [place] 00 [facility] MOTEGRITY 2020- Yes TK 1 T PO Uni vers tablet 1-12 D ity of 00:00: [place] [facility] MOTEGRITY 2020- Yes TK 1 T PO Uni vers tablet 1-12 D ity of 00:00: [place] [facility] MOTEGRITY 2020- Yes TK 1 T PO Uni vers tablet 1-12 D ity of 00:00: [place] [facility] MOTEGRITY 2020- Yes TK 1 T PO Uni vers tablet 1-12 D ity of 00:00: [place] [facility] MOTEGRITY 2020- Yes TK 1 T PO Uni vers tablet 1-12 D ity of 00:00: [place] [facility] MOTEGRITY 2020- Yes TK 1 T PO Uni vers tablet 1-12 D ity of 00:00: [place] [facility] MOTEGRITY 2020- Yes TK 1 T PO Uni vers tablet 1-12 D ity of 00:00: [place] [facility] MOTEGRITY 2020- Yes TK 1 T PO Uni vers tablet 1-12 D ity of 00:00: [place] [facility] MOTEGRITY 2020- Yes TK 1 T PO Uni vers tablet 1-12 D ity of 00:00: [place] [facility] MOTEGRITY 2020- Yes TK 1 T PO Uni vers tablet 1-12 D ity of 00:00: [place] [facility] MOTEGRITY 2020- Yes TK 1 T PO Uni vers tablet 1-12 D ity of 00:00: [place] [facility] MOTEGRITY 2020- Yes TK 1 T PO Uni vers tablet 1-12 D ity of 00:00: [place] [facility] MOTEGRITY 2020- Yes TK 1 T PO Uni vers tablet 1-12 D ity of 00:00: [place] 00 [facility] MOTEGRITY 2020- Yes TK 1 T PO Uni vers tablet 1-12 D ity of 00:00: [place] 00 [facility] MOTEGRITY 2020- Yes TK 1 T PO Uni vers tablet 1-12 D ity of 00:00: [place] 00 [facility] MOTEGRITY 2020- Yes TK 1 T PO Uni vers tablet 1-12 D ity of 00:00: [place] 00 [facility] MOTEGRITY 2020-1 Yes TK 1 T PO [...] of 00:00: Medical Branch diclofenac 2020- Yes [id number] 75mg Take 1 [facility] 75 mg EC 0-08 tablet by ity of tablet 00:00: mouth 2 (two) Medical times Branch daily with meals. diclofenac 2020- Yes [id number] 75mg Take 1 [facility] 75 mg EC 0-08 tablet by ity of tablet 00:00: mouth 2 (two) Medical times Branch daily with meals. diclofenac 2020- Yes [id number] 75mg Take 1 [facility] 75 mg EC 0-08 tablet by ity of tablet 00:00: mouth 2 (two) Medical times Branch daily with meals. diclofenac 2020- Yes [id number] 75mg Take 1 [facility] 75 mg EC 0-08 tablet by ity of tablet 00:00: mouth 2 (two) Medical times Branch daily with meals. diclofenac 2020- Yes [id number] 75mg Take 1 [facility] 75 mg EC 0-08 tablet by ity of tablet 00:00: mouth 2 (two) Medical times Branch daily with meals. diclofenac 2020- Yes [id number] 75mg Take 1 [facility] 75 mg EC 0-08 tablet by ity of tablet 00:00: mouth 2 (two) Medical times Branch daily with meals. diclofenac 2020-1 Yes [id number] 75mg Take 1 [facility] 75 mg EC 0-08 tablet by ity of tablet 00:00: mouth (two) Medical times Branch daily with meals. diclofenac 2020-1 Yes [id number] 75mg Take 1 [facility] 75 mg EC 0-08 tablet by ity of tablet 00:00: mouth (two) Medical times Branch daily with meals. diclofenac 2020-1 Yes [id number] 75mg Take 1 [facility] 75 mg EC 0-08 tablet by ity of tablet 00:00: mouth [place] (two) Medical times Branch daily with meals. diclofenac 2020-1 Yes [id number] 75mg Take 1 [facility] 75 mg EC 0-08 tablet by ity of tablet 00:00: mouth [place] (two) Medical times Branch daily with meals. diclofenac 2020-1 Yes [id number] 75mg Take 1 [facility] 75 mg EC 0-08 tablet by ity of tablet 00:00: mouth [place] (two) Medical times Branch daily with meals. diclofenac 2020-1 Yes [id number] 75mg Take 1 [facility] 75 mg EC 0-08 tablet by ity of tablet 00:00: mouth (two) Medical times Branch daily with meals. diclofenac 2020-1 Yes [id number] 75mg Take 1 [facility] 75 mg EC 0-08 tablet by ity of tablet 00:00: mouth [place] (two) Medical times Branch daily with meals. diclofenac 2020-1 Yes [id number] 75mg Take 1 [facility] 75 mg EC 0-08 tablet by ity of tablet 00:00: mouth [place] (two) Medical times Branch daily with meals. diclofenac 2020-1 Yes [id number] 75mg Take 1 [facility] 75 mg EC 0-08 tablet by ity of tablet 00:00: mouth (two) Medical times Branch daily with meals. diclofenac 2020-1 Yes [id number] 75mg Take 1 [facility] 75 mg EC 0-08 tablet by ity of tablet 00:00: mouth [place] (two) Medical times Branch daily with meals. diclofenac 2020-1 Yes [id number] 75mg Take 1 [facility] 75 mg EC 0-08 tablet by ity of tablet 00:00: mouth [place] (two) Medical times Branch daily with meals. diclofenac 2020-1 Yes [id number] 75mg Take 1 [facility] 75 mg EC 0-08 tablet by ity of tablet 00:00: mouth [place] (two) Medical times Branch daily with meals. diclofenac 2019-11 Yes [id number] 75mg Take 1 [facility] 75 mg EC 0-08 tablet by ity of tablet 00:00: mouth 2 [place] 00 (two) Medical times Branch daily with meals. diclofenac 2019-11 Yes [id number] 75mg Take 1 [facility] 75 mg EC 0-08 tablet by ity of tablet 00:00: mouth 2 [place] (two) Medical times Branch daily with meals. diclofenac 2019-11 Yes [id number] 75mg Take 1 [facility] 75 mg EC 0-08 tablet by ity of tablet 00:00: mouth 2 [place] (two) Medical times Branch daily with meals. diclofenac 2019-11 Yes [id number] 75mg Take 1 [facility] 75 mg EC 0-08 tablet by ity of tablet 00:00: [facility] [place] (two) Medical times Branch daily with meals. diclofenac 2019-11- No [id number] 75mg Take 1 [facility] 75 mg EC 0-08 10-25 tablet by ity o f tablet 00:00: 00:00 [facility] 2 [place] 00 :00 (two) Medical times Branch daily with meals. diclofenac 2019-11- No [id number] 75mg Take 1 [facility] 75 mg EC 0-08 10-25 tablet by ity o f tablet 00:00: 00:00 mouth 2 [place] 00 :00 (two) Medical times Branch daily with meals. CLONIDINE 2020-0 Yes [id number] TAKE 1 Un ally 0.2 mg 8-06 TABLET BY ity of tablet 00:00: MOUTH [place] 00 THREE Medical TIMES Branch DAILY CLONIDINE 2020-0 Yes [id number] TAKE 1 Un ally 0.2 mg 8-06 TABLET BY ity of tablet 00:00: MOUTH [place] 00 THREE Medical TIMES Branch DAILY CLONIDINE 2020-0 Yes [id number] TAKE 1 Un ally 0.2 mg 8-06 TABLET BY ity of tablet 00:00: MOUTH [place] 00 THREE Medical TIMES Branch DAILY CLONIDINE 2020-0 Yes [id number] TAKE 1 Un ally 0.2 mg 8-06 TABLET BY ity of tablet 00:00: MOUTH [place] 00 THREE Medical TIMES Branch DAILY CLONIDINE 2020-0 Yes [id number] TAKE 1 Un ally 0.2 mg 8-06 TABLET BY ity of tablet 00:00: MOUTH [place] 00 THREE Medical TIMES Branch DAILY CLONIDINE 2020-0 Yes [id number] TAKE 1 Un ally 0.2 mg 8-06 TABLET BY ity of tablet 00:00: MOUTH THREE Medical TIMES Branch DAILY CLONIDINE 2020-0 Yes [id number] TAKE 1 Un ally 0.2 mg 8-06 TABLET BY ity of tablet 00:00: MOUTH THREE Medical TIMES Branch DAILY CLONIDINE 2020-0 Yes [id number] TAKE 1 Un ally 0.2 mg 8-06 TABLET BY ity of tablet 00:00: MOUTH THREE Medical TIMES Branch DAILY CLONIDINE 2020-0 Yes [id number] TAKE 1 Un ally 0.2 mg 8-06 TABLET BY ity of tablet 00:00: MOUTH THREE Medical TIMES Branch DAILY CLONIDINE 2020-0 Yes [id number] TAKE 1 Un ally 0.2 mg 8-06 TABLET BY ity of tablet 00:00: THREE Medical TIMES Branch DAILY CLONIDINE 2020-0 Yes [id number] TAKE 1 Un ally 0.2 mg 8-06 TABLET BY ity of tablet 00:00: THREE Medical TIMES Branch DAILY CLONIDINE 2020-0 Yes [id number] TAKE 1 Un ally 0.2 mg 8-06 TABLET BY ity of tablet 00:00: MOUTH THREE Medical TIMES Branch DAILY CLONIDINE 2020-0 Yes [id number] TAKE 1 Un ally 0.2 mg 8-06 TABLET BY ity of tablet 00:00: THREE Medical TIMES Branch DAILY CLONIDINE 2020-0 Yes [id number] TAKE 1 Un ally 0.2 mg 8-06 TABLET BY ity of tablet 00:00: THREE Medical TIMES Branch DAILY CLONIDINE 2020-0 Yes [id number] TAKE 1 Un ally 0.2 mg 8-06 TABLET BY ity of tablet 00:00: MOUTH THREE Medical TIMES Branch DAILY CLONIDINE 2020-0 Yes [id number] TAKE 1 Un ally 0.2 mg 8-06 TABLET BY ity of tablet 00:00: MOUTH THREE Medical TIMES Branch DAILY CLONIDINE 2020-0 Yes [id number] TAKE 1 Un ally 0.2 mg 8-06 TABLET BY ity of tablet 00:00: MOUTH THREE Medical TIMES Branch DAILY CLONIDINE 2020-0 Yes [id number] TAKE 1 Un ally 0.2 mg 8-06 TABLET BY ity of tablet 00:00: MOUTH THREE Medical TIMES Branch DAILY CLONIDINE 2020-0 Yes [id number] TAKE 1 Un ally 0.2 mg 8-06 TABLET BY ity of tablet 00:00: MOUTH THREE Medical TIMES Branch DAILY CLONIDINE 2020-0 Yes [id number] TAKE 1 Un ally 0.2 mg 8-06 TABLET BY ity of tablet 00:00: MOUTH THREE Medical TIMES Branch DAILY CLONIDINE 2020-0 Yes [id number] TAKE 1 Un ally 0.2 mg 8-06 TABLET BY ity of tablet 00:00: THREE Medical TIMES Branch DAILY CLONIDINE 2020-0 Yes [id number] TAKE 1 Un ally 0.2 mg 8-06 TABLET BY ity of tablet 00:00: MOUTH THREE Medical TIMES Branch DAILY CLONIDINE 2020-0 Yes [id number] TAKE 1 Un ally 0.2 mg 8-06 TABLET BY ity of tablet 00:00: THREE Medical TIMES Branch DAILY CLONIDINE 2020-0 Yes [id number] TAKE 1 Un ally 0.2 mg 8-06 TABLET BY ity of tablet 00:00: THREE Medical TIMES Branch DAILY CLONIDINE 2020-0 Yes [id number] TAKE 1 Un ally 0.2 mg 8-06 TABLET BY ity of tablet 00:00: MOUTH THREE Medical TIMES Branch DAILY CLONIDINE 2020-0 Yes [id number] TAKE 1 Un ally 0.2 mg 8-06 TABLET BY ity of tablet 00:00: THREE Medical TIMES Branch DAILY CLONIDINE 2020-0 Yes [id number] TAKE 1 Un ally 0.2 mg 8-06 TABLET BY ity of tablet 00:00: THREE Medical TIMES Branch DAILY CLONIDINE 2020-0 Yes [id number] TAKE 1 Un ally 0.2 mg 8-06 TABLET BY ity of tablet 00:00: THREE Medical TIMES Branch DAILY CLONIDINE 2020-0 Yes [id number] TAKE 1 Un ally 0.2 mg 8-06 TABLET BY ity of tablet 00:00: MOUTH THREE Medical TIMES Branch DAILY CLONIDINE 2020-0 Yes [id number] TAKE 1 Un ally 0.2 mg 8-06 TABLET BY ity of tablet 00:00: THREE Medical TIMES Branch DAILY CLONIDINE 2020-0 Yes [id number] TAKE 1 Un ally 0.2 mg 8-06 TABLET BY ity of tablet 00:00: THREE Medical TIMES Branch DAILY CLONIDINE 2020-0 Yes [id number] TAKE 1 Un ally 0.2 mg 8-06 TABLET BY ity of tablet 00:00: MOUTH 00 THREE Medical TIMES Branch DAILY CLONIDINE 2020-0 Yes [id number] TAKE 1 Un ally 0.2 mg 8-06 TABLET BY ity of tablet 00:00: MOUTH 00 THREE Medical TIMES Branch DAILY CLONIDINE 2020-0 2021- No [id number] TAKE 1 U nivers 0.2 mg 8-09-21 TABLET BY ity of tablet 00:00: 00:00 MOUTH [place] 00 :00 THREE Medical TIMES Branch DAILY CLONIDINE 2020-0 2021- No [id number] TAKE 1 U nivers 0.2 mg 8-09-21 TABLET BY ity of tablet 00:00: 00:00 [...] mcg capsule - BID ity of 00:00: [place] [facility] AMITIZA 24 2020-0 Yes TK 1 C PO Un ally mcg capsule 7- BID ity of 00:00: [place] [facility] AMITIZA 24 2019-0 Yes TK 1 C PO Un ally mcg capsule - BID ity of 00:00: [place] [facility] AMITIZA 24 2019-0 Yes TK 1 C PO Un ally mcg capsule 7- BID ity of 00:00: [place] [facility] AMITIZA 24 2019-0 Yes TK 1 C PO Un ally mcg capsule - BID ity of 00:00: [place] [facility] AMITIZA 24 2019-0 Yes TK 1 C PO Un ally mcg capsule - BID ity of 00:00: [place] [facility] AMITIZA 24 2019-0 Yes TK 1 C PO Un ally mcg capsule - BID ity of 00:00: [place] [facility] AMITIZA 24 2019-0 Yes TK 1 C PO Un ally mcg capsule - BID ity of 00:00: [place] [facility] AMITIZA 24 2019-0 Yes TK 1 C PO Un ally mcg capsule - BID ity of 00:00: [place] [facility] AMITIZA 24 2019-0 Yes TK 1 C PO Un ally mcg capsule - BID ity of 00:00: [place] [facility] AMITIZA 24 2019-0 Yes TK 1 C PO Un ally mcg capsule - BID ity of 00:00: [place] [facility] AMITIZA 24 2019-0 Yes TK 1 C PO Un ally mcg capsule - BID ity of 00:00: [place] [facility] AMITIZA 24 2019-0 Yes TK 1 C PO Un ally mcg capsule - BID ity of 00:00: [place] [facility] AMITIZA 24 2020-0 Yes TK 1 C PO Un ally mcg capsule 7- BID ity of 00:00: [place] [facility] AMITIZA 24 2019-0 Yes TK 1 C PO Un ally mcg capsule -06 BID ity of 00:00: [place] [facility] AMITIZA 24 2019-0 Yes TK 1 C PO Un ally mcg capsule 7- BID ity of 00:00: [place] 00 Medical Branch AMITIZA 24 2020-0 Yes TK 1 C PO Un ally mcg capsule - BID ity of 00:00: [place] [facility] AMITIZA 24 2020-0 Yes TK 1 C PO Un ally mcg capsule - BID ity of 00:00: [place] [facility] AMITIZA 24 2019-0 Yes TK 1 C PO Un ally mcg capsule - BID ity of 00:00: [place] [facility] AMITIZA 24 2020-0 Yes TK 1 C PO Un ally mcg capsule - BID ity of 00:00: [place] [facility] AMITIZA 24 2019-0 Yes TK 1 C PO Un ally mcg capsule 05-06 BID ity of 00:00: [place] [facility] AMITIZA 24 2019-0 Yes TK 1 C PO Un ally mcg capsule 05-06 BID ity of 00:00: [place] [facility] AMITIZA 24 2019-0 Yes TK 1 C PO Un ally mcg capsule 05-06 BID ity of 00:00: [place] [facility] AMITIZA 24 2019-0 Yes TK 1 C PO Un ally mcg capsule - BID ity of 00:00: [place] [facility] AMITIZA 24 2019-0 Yes TK 1 C PO Un ally mcg capsule - BID ity of 00:00: [place] [facility] AMITIZA 24 2019-0 Yes TK 1 C PO Un ally mcg capsule 05-06 BID ity of 00:00: [place] [facility] AMITIZA 24 2020-0 Yes TK 1 C PO Un ally mcg capsule - BID ity of 00:00: [place] [facility] AMITIZA 24 2020-0 Yes TK 1 C PO Un ally mcg capsule - BID ity of 00:00: [place] [facility] AMITIZA 24 2020-0 Yes TK 1 C PO Un ally mcg capsule - BID ity of 00:00: [place] [facility] AMITIZA 24 2020-0 Yes TK 1 C PO Un ally mcg capsule - BID ity of 00:00: [place] [facility] AMITIZA 24 2019-0 Yes TK 1 C PO Un ally mcg capsule - BID ity of 00:00: [place] [facility] AMITIZA 24 2020-0 Yes TK 1 C PO Un ally mcg capsule - BID ity of 00:00: [place] [facility] AMITIZA 24 2020-0 Yes TK 1 C PO Un ally mcg capsule - BID ity of 00:00: [place] [facility] AMITIZA 24 2019-0 Yes TK 1 C PO Un ally mcg capsule - BID ity of 00:00: [place] [facility] AMITIZA 24 2020-0 Yes TK 1 C PO Un ally mcg capsule 05-06 BID ity of 00:00: [place] [facility] AMITIZA 24 2019-0 Yes TK 1 C PO Un ally mcg capsule 05-06 BID ity of 00:00: [place] [facility] AMITIZA 24 2019-0 Yes TK 1 C PO Un ally mcg capsule 05-06 BID ity of 00:00: [place] [facility] AMITIZA 24 2019-0 Yes TK 1 C PO Un ally mcg capsule 05-06 BID ity of 00:00: [place] [facility] AMITIZA 24 2019-0 Yes TK 1 C PO Un ally mcg capsule 05-06 BID ity of 00:00: [place] [facility] AMITIZA 24 2019-0 Yes TK 1 C PO Un ally mcg capsule 05-06 BID ity of 00:00: [place] [facility] AMITIZA 24 2019-0 Yes TK 1 C PO Un ally mcg capsule 05-06 BID ity of 00:00: [place] [facility] AMITIZA 24 2019-0 Yes TK 1 C PO Un ally mcg capsule 05-06 BID ity of 00:00: [place] [facility] AMITIZA 24 2019-0 Yes TK 1 C PO Un ally mcg capsule 05-06 BID ity of 00:00: [place] [facility] AMITIZA 24 2020-0 Yes TK 1 C PO Un ally mcg capsule 05-06 BID ity of 00:00: [place] [facility] AMITIZA 24 2020-0 Yes TK 1 C PO Un ally mcg capsule - BID ity of 00:00: [place] 00 [facility] AMITIZA 24 2019-0 Yes TK 1 C PO Un ally mcg capsule - BID ity of 00:00: [place] 00 [facility] AMITIZA 24 2020-0 Yes TK 1 C PO Un ally mcg capsule - BID ity of 00:00: [place] [facility] AMITIZA 24 2020-0 Yes TK [...] Univers mg tablet 5-14 ity of 00:00: [place] [facility] XIFAXAN 550 2020-0 Yes as needed. Univers mg tablet 5-14 ity of 00:00: Medical Branch XIFAXAN 550 2020-0 Yes as needed. Univers mg tablet 5-14 ity of 00:00: [place] [facility] VICTOZA 2020-0 Yes INJECT 1.8 [...] mg 09:53: mouth [place] tablet [address] [facility] ALPRAZolam 2019-0 Yes 2mg Take 2 mg Un ally (XANAX) 8-28 by mouth ity of 0.25 mg 09:53: every 6 [place] tablet 14 (six) Medical hours as Branch needed. allopurinol 2019-0 Yes 100mg Take 100 U nivers (ZYLOPRIM) 8-28 mg by ity of 100 mg 09:53: mouth [place] tablet [address] [facility] Branch ALPRAZolam 2019-0 Yes 2mg Take 2 mg Un ally (XANAX) 8-28 by mouth ity of 0.25 mg 09:53: every 6 [place] tablet 14 (six) Medical hours as Branch needed. allopurinol 2019-0 Yes 100mg Take 100 U nivers (ZYLOPRIM) 8-28 mg by ity of 100 mg 09:53: mouth [place] tablet [address] [facility] ALPRAZolam 2019-0 Yes 2mg Take 2 mg Un ally (XANAX) 8-28 by mouth ity of 0.25 mg 09:53: every 6 [place] tablet 14 (six) Medical hours as Branch needed. allopurinol 2019-0 Yes 100mg Take 100 U nivers (ZYLOPRIM) 8-28 mg by ity of 100 mg 09:53: mouth [place] tablet [address] [facility] ALPRAZolam 2019-0 Yes 2mg Take 2 [...] mg 09:53: mouth [place] tablet [address] [facility] ALPRAZolam [id number] Yes 2mg Take 2 mg Un ally (XANAX) 8-28 by mouth ity of 0.25 mg 09:53: every 6 [place] tablet 14 (six) Medical hours as Branch needed. allopurinol 2019-0 Yes 100mg Take 100 U nivers (ZYLOPRIM) 8-28 mg by ity of 100 mg 09:53: mouth [place] tablet [address] [facility] ALPRAZolam [id number] Yes 2mg Take 2 [...] mg 09:53: mouth [place] tablet [address] [facility] ALPRAZolam 2019-0 Yes 2mg Take 2 mg Un ally (XANAX) 8-28 by mouth ity of 0.25 mg 09:53: every 6 [place] tablet 14 (six) Medical hours as Branch needed. allopurinol 2019-0 Yes 100mg Take 100 U nivers (ZYLOPRIM) 8-28 mg by ity of 100 mg 09:53: mouth [place] tablet [address] [facility] ALPRAZolam 2019-0 Yes 2mg Take 2 [...] mg 09:53: mouth [place] tablet [address] [facility] ALPRAZolam 2019-0 Yes 2mg Take 2 [...] Medical hours as Branch needed. atorvastati Yes [id number] 40mg Take 1 Univers n 40 mg 5-28 tablet by ity of tablet 00:00: mouth [place] 00 every Medical evening. Branch atorvastati Yes [id number] 40mg Take 1 [facility] n 40 mg 5-28 tablet by ity of tablet 00:00: mouth [place] 00 every Medical evening. Branch atorvastati Yes [id number] 40mg Take 1 Univers n 40 mg 5-28 tablet by ity of tablet 00:00: mouth [place] 00 every Medical evening. Branch atorvastati 0 Yes [id number] 40mg Take 1 [facility] n 40 mg 5-28 tablet by ity of tablet 00:00: mouth [place] 00 every Medical evening. Branch atorvastati 0 Yes [id number] 40mg Take 1 [facility] n 40 mg 5-28 tablet by ity of tablet 00:00: mouth [place] 00 every Medical evening. Branch atorvastati 0 Yes [id number] 40mg Take 1 [facility] n 40 mg 5-28 tablet by ity of tablet 00:00: mouth [place] 00 every Medical evening. [place] atorvastati Yes [id number] 40mg Take 1 [facility] n 40 mg 5-28 tablet by ity of tablet 00:00: mouth [place] 00 every Medical evening. [place] atorvastati Yes [id number] 40mg Take 1 [facility] n 40 mg 5-28 tablet by ity of tablet 00:00: mouth [place] 00 every Medical evening. [place] atorvasta Yes [id number] 40mg Take 1 Univers n 40 mg 5-28 tablet by ity of tablet 00:00: mouth [place] 00 every Medical evening. [place] atorvasta Yes [id number] 40mg Take 1 Univers n 40 mg 5-28 tablet by ity of tablet 00:00: mouth [place] 00 every Medical evening. [place] atorvasta Yes [id number] 40mg Take 1 Univers n 40 mg 5-28 tablet by ity of tablet 00:00: mouth [place] 00 every Medical evening. [place] atorvasta Yes [id number] 40mg Take 1 [facility] n 40 mg 5-28 tablet by ity of tablet 00:00: mouth [place] 00 every Medical evening. [place] atorvastati Yes [id number] 40mg Take 1 Univers n 40 mg 5-28 tablet by ity of tablet 00:00: mouth [place] 00 every Medical evening. [place] atorvastati Yes [id number] 40mg Take 1 Univers n 40 mg 5-28 tablet by ity of tablet 00:00: mouth [place] 00 every Medical evening. [place] atorvastati Yes [id number] 40mg Take 1 Univers n 40 mg 5-28 tablet by ity of tablet 00:00: mouth [place] 00 every Medical evening. [place] atorvastati Yes [id number] 40mg Take 1 Univers n 40 mg 5-28 tablet by ity of tablet 00:00: mouth [place] 00 every Medical evening. [place] atorvastati Yes [id number] 40mg Take 1 [facility] n 40 mg 5-28 tablet by ity of tablet 00:00: mouth [place] 00 every Medical evening. [place] atorvasta Yes [id number] 40mg Take 1 Univers n 40 mg 5-28 tablet by ity of tablet 00:00: mouth [place] 00 every Medical evening. [place] atorvastati 0 Yes [id number] 40mg Take 1 Univers n 40 mg 5-28 tablet by ity of tablet 00:00: mouth [place] 00 every Medical evening. [place] atorvastati 0 Yes [id number] 40mg Take 1 Univers n 40 mg 5-28 tablet by ity of tablet 00:00: mouth [place] 00 every Medical evening. [place] atorvastati Yes [id number] 40mg Take 1 Univers n 40 mg 5-28 tablet by ity of tablet 00:00: mouth [place] 00 every Medical evening. [place] atorvastati Yes [id number] 40mg Take 1 [facility] n 40 mg 5-28 tablet by ity of tablet 00:00: mouth [place] 00 every Medical evening. [place] atorvastati Yes [id number] 40mg Take 1 Univers n 40 mg 5-28 tablet by ity of tablet 00:00: mouth [place] 00 every Medical evening. [place] atorvastati Yes [id number] 40mg Take 1 Univers n 40 mg 5-28 tablet by ity of tablet 00:00: mouth [place] 00 every Medical evening. [place] atorvastati Yes [id number] 40mg Take 1 [facility] n 40 mg 5-28 tablet by ity of tablet 00:00: mouth [place] 00 every Medical evening. [place] atorvastati 0 Yes [id number] 40mg Take 1 [facility] n 40 mg 5-28 tablet by ity of tablet 00:00: mouth [place] 00 every Medical evening. [place] atorvastati 0 Yes [id number] 40mg Take 1 Univers n 40 mg 5-28 tablet by ity of tablet 00:00: mouth [place] 00 every Medical evening. [place] atorvastati 0 Yes [id number] 40mg Take 1 [facility] n 40 mg 5-28 tablet by ity of tablet 00:00: mouth [place] 00 every Medical evening. [place] atorvastati 0 Yes [id number] 40mg Take 1 Univers n 40 mg 5-28 tablet by ity of tablet 00:00: mouth [place] 00 every Medical evening. [place] atorvastati Yes [id number] 40mg Take 1 Univers n 40 mg 5-28 tablet by ity of tablet 00:00: mouth [place] 00 every Medical evening. Branch atorvastati Yes [id number] 40mg Take 1 [facility] n 40 mg 5-28 tablet by ity of tablet 00:00: mouth [place] 00 every Medical evening. Branch atorvastati Yes [id number] 40mg Take 1 Univers n 40 mg 5-28 tablet by ity of tablet 00:00: mouth [place] 00 every Medical evening. Branch atorvastati Yes [id number] 40mg Take 1 Univers n 40 mg 5-28 tablet by ity of tablet 00:00: mouth [place] 00 every Medical evening. Branch atorvastati 2021- No [id number] 40mg Take 1 [facility] n 40 mg 5-28 11-21 tablet by ity of tablet 00:00: 00:00 mouth [place] 00 :00 every Medical evening. Branch atorvastati 2021- No [id number] 40mg Take 1 [facility] n 40 mg [...] :00 daily. Medical Branch Cholecalcif 2017-11 Yes [id number] Take 1 Un ally alayna, 0-01 capsule by ity of Vitamin D3, 00:00: mouth [place] 50,000 unit 00 weekly. Medic al capsule Branch Cholecalcif 2017-11 Yes [id number] Take 1 Un ally alayna, 0-01 capsule by ity of Vitamin D3, 00:00: mouth [place] 50,000 unit 00 weekly. Medic al capsule Branch Cholecalcif 2017-11 Yes [id number] Take 1 Un ally alayna, 0-01 capsule by ity of Vitamin D3, 00:00: mouth [place] 50,000 unit 00 weekly. Medic al capsule Branch Cholecalcif 2017-11 Yes [id number] Take 1 Un ally alayna, 0-01 capsule by ity of Vitamin D3, 00:00: mouth [place] 50,000 unit 00 weekly. Medic al capsule Branch Cholecalcif 2017-11 Yes [id number] Take 1 Un ally alayna, 0-01 capsule by ity of Vitamin D3, 00:00: mouth [place] 50,000 unit 00 weekly. Medic al capsule Branch Cholecalcif 2017-11 Yes [id number] Take 1 Un ally alayna, 0-01 capsule by ity of Vitamin D3, 00:00: mouth [place] 50,000 unit 00 weekly. Medic al capsule Branch Cholecalcif 2017-11 Yes [id number] Take 1 Un ally alayna, 0-01 capsule by ity of Vitamin D3, 00:00: mouth [place] 50,000 unit 00 weekly. Medic al capsule Branch Cholecalcif 2017-11 Yes [id number] Take 1 Un ally alayna, 0-01 capsule by ity of Vitamin D3, 00:00: mouth [place] 50,000 unit 00 weekly. Medic al capsule Branch Cholecalcif 2017-11 Yes [id number] Take 1 Un ally alayna, 0-01 capsule by ity of Vitamin D3, 00:00: mouth [place] 50,000 unit 00 weekly. Medic al capsule Branch Cholecalcif 2017-11 Yes [id number] Take 1 Un ally alayna, 0-01 capsule by ity of Vitamin D3, 00:00: mouth [place] 50,000 unit 00 weekly. Medic al capsule Branch Cholecalcif 2017-11 Yes [id number] Take 1 Un ally alayna, 0-01 capsule by ity of Vitamin D3, 00:00: mouth [place] 50,000 unit 00 weekly. Medic al capsule Branch Cholecalcif 2017-11 Yes [id number] Take 1 Un ally alayna, 0-01 capsule by ity of Vitamin D3, 00:00: mouth [place] 50,000 unit 00 weekly. Medic al capsule Branch Cholecalcif 2017-11 Yes [id number] Take 1 Un ally alayna, 0-01 capsule by ity of Vitamin D3, 00:00: mouth [place] 50,000 unit 00 weekly. Medic al capsule [facility] Cholecalcif 2017-11 Yes [id number] Take 1 Un ally alayna, 0-01 capsule by ity of Vitamin D3, 00:00: mouth [place] 50,000 unit 00 weekly. Medic al capsule [facility] Cholecalcif 2017-11 Yes [id number] Take 1 Un ally alayna, 0-01 capsule by ity of Vitamin D3, 00:00: mouth [place] 50,000 unit 00 weekly. Medic al capsule [facility] Cholecalcif 2017-11 Yes [id number] Take 1 Un ally alayna, 0-01 capsule by ity of Vitamin D3, 00:00: mouth [place] 50,000 unit 00 weekly. Medic al capsule [facility] Cholecalcif 2017-11 Yes [id number] Take 1 Un ally alay[place], 0-01 capsule by ity of Vitamin D3, 00:00: mouth [place] 50,000 unit 00 weekly. Medic al capsule [facility] Cholecalcif 2017-11 Yes [id number] Take 1 Un ally alay[place], 0-01 capsule by ity of Vitamin D3, 00:00: mouth [place] 50,000 unit 00 weekly. Medic al capsule [facility] Cholecalcif 2017-11 Yes [id number] Take 1 Un ally alayna, 0-01 capsule by ity of Vitamin D3, 00:00: mouth [place] 50,000 unit 00 weekly. Medic al capsule [facility] Cholecalcif 2017-11 Yes [id number] Take 1 Un ally alayna, 0-01 capsule by ity of Vitamin D3, 00:00: mouth [place] 50,000 unit 00 weekly. Medic al capsule [facility] Cholecalcif 2017-11 Yes [id number] Take 1 Un ally alay[place], 0-01 capsule by ity of Vitamin D3, 00:00: mouth [place] 50,000 unit 00 weekly. Medic al capsule [facility] Cholecalcif 2017-11 Yes [id number] Take 1 Un ally alay[place], 0-01 capsule by ity of Vitamin D3, 00:00: mouth [place] 50,000 unit 00 weekly. Medic al capsule [facility] Cholecalcif 2017-11 Yes [id number] Take 1 Un ally alay[place], 0-01 capsule by ity of Vitamin D3, 00:00: mouth [place] 50,000 unit 00 weekly. Medic al capsule [facility] Cholecalcif 2017-11 Yes [id number] Take 1 Un ally alay[place], 0-01 capsule by ity of Vitamin D3, 00:00: mouth [place] 50,000 unit 00 weekly. Medic al capsule [facility] Cholecalcif 2017-11 Yes [id number] Take 1 Un ally alay[place], 0-01 capsule by ity of Vitamin D3, 00:00: mouth [place] 50,000 unit 00 weekly. Medic al capsule [facility] Cholecalcif 2017-11 Yes [id number] Take 1 Un ally al[facility], 0-01 capsule by ity of Vitamin D3, 00:00: mouth [place] 50,000 unit 00 weekly. Medic al capsule [facility] Cholecalcif 2017-11 Yes [id number] Take 1 Un ally alay[place], 0-01 capsule by ity of Vitamin D3, 00:00: mouth [place] 50,000 unit 00 weekly. Medic al capsule [facility] Cholecalcif 2017-11 Yes [id number] Take 1 Un ally al[facility], 0-01 capsule by ity of Vitamin D3, 00:00: mouth [place] 50,000 unit 00 weekly. Medic al capsule [facility] Cholecalcif 2017-11 Yes [id number] Take 1 Un ally alay[place], 0-01 capsule by ity of Vitamin D3, 00:00: mouth [place] 50,000 unit 00 weekly. Medic al capsule [facility] Cholecalcif 2017-11 Yes [id number] Take 1 Un ally alay[place], 0-01 capsule by ity of Vitamin D3, 00:00: mouth [place] 50,000 unit 00 weekly. Medic al capsule [facility] Cholecalcif 2017-11 Yes [id number] Take 1 Un ally alay[place], 0-01 capsule by ity of Vitamin D3, 00:00: mouth [place] 50,000 unit 00 weekly. Medic al capsule [facility] Cholecalcif 2017-11 Yes [id number] Take 1 Un ally al[facility], 0-01 capsule by ity of Vitamin D3, 00:00: mouth [place] 50,000 unit 00 weekly. Medic al capsule [facility] Cholecalcif 2017-11 Yes [id number] Take 1 Un ally al[facility], 0-01 capsule by ity of Vitamin D3, 00:00: mouth [place] 50,000 unit 00 weekly. Medic al capsule [facility] Cholecalcif 2017-11 Yes [id number] Take 1 Un ally alay[place], 0-01 capsule by ity of Vitamin D3, 00:00: mouth [place] 50,000 unit 00 weekly. Medic al capsule [facility] Cholecalcif 2017-11 Yes [id number] Take 1 Un ally al[facility], 0-01 capsule by ity of Vitamin D3, 00:00: mouth [place] 50,000 unit 00 weekly. Medic al capsule [facility] Cholecalcif 2017-11 Yes [id number] Take 1 Un ally al[facility], 0-01 capsule by ity of Vitamin D3, 00:00: mouth [place] 50,000 unit 00 weekly. Medic al capsule [facility] Cholecalcif 2017-11 Yes [id number] Take 1 Un ally alay[place], 0-01 capsule by ity of Vitamin D3, 00:00: mouth [place] 50,000 unit 00 weekly. Medic al capsule [facility] Cholecalcif 2017-11 Yes [id number] Take 1 Un ally alay[place], 0-01 capsule by ity of Vitamin D3, 00:00: mouth [place] 50,000 unit 00 weekly. Medic al capsule [facility] Cholecalcif 2017-11 Yes [id number] Take 1 Un ally alay[place], 0-01 capsule by ity of Vitamin D3, 00:00: mouth [place] 50,000 unit 00 weekly. Medic al capsule [facility] Cholecalcif 2017-11 Yes [id number] Take 1 Un ally alay[place], 0-01 capsule by ity of Vitamin D3, 00:00: mouth [place] 50,000 unit 00 weekly. Medic al capsule [facility] Cholecalcif 2017-11 Yes [id number] Take 1 Un ally alay[place], 0-01 capsule by ity of Vitamin D3, 00:00: mouth [place] 50,000 unit 00 weekly. Medic al capsule [facility] Cholecalcif 2017-11 Yes [id number] Take 1 Un ally alay[place], 0-01 capsule by ity of Vitamin D3, 00:00: mouth [place] 50,000 unit 00 weekly. Medic al capsule [facility] Cholecalcif 2017-11 Yes [id number] Take 1 Un ally alay[place], 0-01 capsule by ity of Vitamin D3, 00:00: mouth [place] 50,000 unit 00 weekly. Medic al capsule [facility] Cholecalcif 2017-11 Yes [id number] Take 1 Un ally alay[place], 0-01 capsule by ity of Vitamin D3, 00:00: mouth [place] 50,000 unit 00 weekly. Medic al capsule [facility] Cholecalcif 2017-11 Yes [id number] Take 1 Un ally alay[place], 0-01 capsule by ity of Vitamin D3, 00:00: mouth [place] 50,000 unit 00 weekly. Medic al capsule [facility] Cholecalcif 2017-11 Yes [id number] Take 1 Un ally alay[place], 0-01 capsule by ity of Vitamin D3, 00:00: mouth [place] 50,000 unit 00 weekly. Medic al capsule [facility] Cholecalcif 2017-11 Yes [id number] Take 1 Un ally alay[place], 0-01 capsule by ity of Vitamin D3, 00:00: mouth [place] 50,000 unit 00 weekly. Medic al capsule [facility] Cholecalcif 2017-11 Yes [id number] Take 1 Un ally alay[place], 0-01 capsule by ity of Vitamin D3, 00:00: mouth [place] 50,000 unit 00 weekly. Medic al capsule [facility] Cholecalcif 2017-11 Yes [id number] Take 1 Un ally al[place], 0-01 capsule by ity of Vitamin D3, 00:00: mouth [place] 50,000 unit 00 weekly. Medic al capsule [facility] Cholecalcif 2017-11 Yes [id number] Take 1 Un ally al[facility], 0-01 capsule by ity of Vitamin D3, 00:00: mouth [place] 50,000 unit 00 weekly. Medic al capsule [facility] Cholecalcif 2018-1 Yes [id number] Take 1 Un ally al[facility], 0-01 capsule by ity of Vitamin D3, 00:00: mouth [place] 50,000 unit 00 weekly. Medic al capsule [facility] Cholecalcif 2017-11 Yes [id number] Take 1 Un ally alay[place], 0-01 capsule by ity of Vitamin D3, 00:00: mouth [place] 50,000 unit 00 weekly. Medic al capsule [facility] Cholecalcif 2017-11 Yes [id number] Take 1 Un ally alayna, 0-01 capsule [...] Rate: 40 l 1,000 mL 19:14: ml/hr, [place] 00 Infuse over: 25 hr, Route: IV, Dosing Weight 141.364 kg, Total Volume: 1,000, Start date: 04/04/18 14:14:00 CDT, Duration: 30 day, Stop date: 05/04/18 14:13:00 CDT, 2.56, m2 Lactated 2018-0 No 1,000 mL, [place] rad[facility] Ringers IV 6-04 Rate: 40 l 1,000 mL 19:14: ml/hr, [place] 00 Infuse over: 25 hr, Route: IV, Dosing Weight 141.364 kg, Total Volume: 1,000, Start date: 04/04/18 14:14:00 CDT, Duration: 30 day, Stop date: 05/04/18 14:13:00 CDT, 2.56, m2 Lactated 2018-0 No 1,000 mL, [place] [facility]ers IV 6-04 Rate: 40 l 1,000 mL 19:14: ml/hr, [place] 00 Infuse over: 25 hr, Route: IV, [...] Rate: 40 l 1,000 mL 19:14: ml/hr, [place] 00 Infuse over: 25 hr, Route: IV, Dosing Weight 141.364 kg, Total Volume: 1,000, Start date: 04/04/18 14:14:00 CDT, Duration: 30 day, Stop date: 05/04/18 14:13:00 CDT, 2.56, m2 Lactated 2018-0 No 1,000 mL, [place] [facility]ers IV 6-04 Rate: 40 l 1,000 mL 19:14: ml/hr, [place] 00 Infuse over: 25 hr, Route: IV, Dosing Weight 141.364 kg, Total Volume: 1,000, Start date: 04/04/18 14:14:00 CDT, Duration: 30 day, Stop date: 05/04/18 14:13:00 CDT, 2.56, m2 Lactated 2018-0 No 1,000 mL, [place] [facility]ers IV 6-04 Rate: 40 l 1,000 mL 19:14: ml/hr, [place] 00 Infuse over: 25 hr, Route: IV, Dosing Weight 141.364 kg, Total Volume: 1,000, Start date: 04/04/18 14:14:00 CDT, Duration: 30 day, Stop date: 05/04/18 14:13:00 CDT, 2.56, m2 Lactated 2018-0 No 1,000 mL, [place] [facility]ers IV 6-04 Rate: 40 l 1,000 mL 19:14: ml/hr, [place] 00 Infuse over: 25 hr, Route: IV, Dosing Weight 141.364 kg, Total Volume: 1,000, Start date: 04/04/18 14:14:00 CDT, Duration: 30 day, Stop date: 05/04/18 14:13:00 CDT, 2.56, m2 Lactated 2018-0 No 1,000 mL, [place] [facility]ers IV 6-04 Rate: 40 l 1,000 mL 19:14: ml/hr, [place] 00 Infuse over: 25 hr, Route: IV, [...] Rate: 40 l 1,000 mL 19:14: ml/hr, [place] 00 Infuse over: 25 hr, Route: IV, [...] Rate: 40 l 1,000 mL 19:14: ml/hr, [place] 00 Infuse over: 25 hr, Route: IV, [...] Rate: 40 l 1,000 mL 19:14: ml/hr, [place] 00 Infuse over: 25 hr, Route: IV, Dosing Weight 141.364 kg, Total Volume: 1,000, Start date: 04/04/18 14:14:00 CDT, Duration: 30 day, Stop date: 05/04/18 14:13:00 CDT, 2.56, m2 Lactated 2018-0 No 1,000 mL, [place] [facility]ers IV 6-04 Rate: 40 l 1,000 mL 19:14: ml/hr, [place] 00 Infuse over: 25 hr, Route: IV, [...] Rate: 40 l 1,000 mL 19:14: ml/hr, [place] 00 Infuse over: 25 hr, Route: IV, Dosing Weight 141.364 kg, Total Volume: 1,000, Start date: 04/04/18 14:14:00 CDT, Duration: 30 day, Stop date: 05/04/18 14:13:00 CDT, 2.56, m2 Lactated 2018-0 No 1,000 mL, [place] [facility] IV 6-04 Rate: 40 l 1,000 mL 19:14: ml/hr, [place] 00 Infuse over: 25 hr, Route: IV, Dosing Weight 141.364 kg, Total Volume: 1,000, Start date: 04/04/18 14:14:00 CDT, Duration: 30 day, Stop date: 05/04/18 14:13:00 CDT, 2.56, m2 Lactated 2018-0 No 1,000 mL, [place] [facility] IV 6-04 Rate: 40 l 1,000 mL 19:14: ml/hr, [place] 00 Infuse over: 25 hr, Route: IV, [...] Rate: 40 l 1,000 mL 19:14: ml/hr, [place] 00 Infuse over: 25 hr, Route: IV, Dosing Weight 141.364 kg, Total Volume: 1,000, Start date: 04/04/18 14:14:00 CDT, Duration: 30 day, Stop date: 05/04/18 14:13:00 CDT, 2.56, m2 Lactated 2018-0 No 1,000 mL, [place] [facility]ers IV 6-04 Rate: 40 l 1,000 mL 19:14: ml/hr, [place] 00 Infuse over: 25 hr, Route: IV, Dosing Weight 141.364 kg, Total Volume: 1,000, Start date: 04/04/18 14:14:00 CDT, Duration: 30 day, Stop date: 05/04/18 14:13:00 CDT, 2.56, m2 Lactated 2018-0 No 1,000 mL, [place] [facility] IV 6-04 Rate: 40 l 1,000 mL 19:14: ml/hr, [place] 00 Infuse over: 25 hr, Route: IV, Dosing Weight 141.364 kg, Total Volume: 1,000, Start date: 04/04/18 14:14:00 CDT, Duration: 30 day, Stop date: 05/04/18 14:13:00 CDT, 2.56, m2 Lactated 2018-0 No 1,000 mL, [place] [facility] IV 6-04 Rate: 40 l 1,000 mL 19:14: ml/hr, [place] 00 Infuse over: 25 hr, Route: IV, [...] Rate: 40 l 1,000 mL 19:14: ml/hr, [place] 00 Infuse over: 25 hr, Route: IV, Dosing Weight 141.364 kg, Total Volume: 1,000, Start date: 04/04/18 14:14:00 CDT, Duration: 30 day, Stop date: 05/04/18 14:13:00 CDT, 2.56, m2 Lactated 2018-0 No 1,000 mL, [place] [facility]ers IV 6-04 Rate: 40 l 1,000 mL 19:14: ml/hr, [place] 00 Infuse over: 25 hr, Route: IV, [...] Rate: 40 l 1,000 mL 19:14: ml/hr, [place] 00 Infuse over: 25 hr, Route: IV, Dosing Weight 141.364 kg, Total Volume: 1,000, Start date: 04/04/18 14:14:00 CDT, Duration: 30 day, Stop date: 05/04/18 14:13:00 CDT, 2.56, m2 Lactated 2018-0 No 1,000 mL, [place] [facility] IV 6-04 Rate: 40 l 1,000 mL 19:14: ml/hr, [place] 00 Infuse over: 25 hr, Route: IV, Dosing Weight 141.364 kg, Total Volume: 1,000, Start date: 04/04/18 14:14:00 CDT, Duration: 30 day, Stop date: 05/04/18 14:13:00 CDT, 2.56, m2 Lactated 2018-0 No 1,000 mL, [place] [facility] IV 6-04 Rate: 40 l 1,000 mL 19:14: ml/hr, [place] 00 Infuse over: 25 hr, Route: IV, [...] Rate: 40 l 1,000 mL 19:14: ml/hr, [place] 00 Infuse over: 25 hr, Route: IV, [...] Rate: 40 l 1,000 mL 19:14: ml/hr, [place] 00 Infuse over: 25 hr, Route: IV, Dosing Weight 141.364 kg, Total Volume: 1,000, Start date: 04/04/18 14:14:00 CDT, Duration: 30 day, Stop date: 05/04/18 14:13:00 CDT, 2.56, m2 Lactated 2018-0 No 1,000 mL, [place] [facility] IV 6-04 Rate: 40 l 1,000 mL 19:14: ml/hr, [place] 00 Infuse over: 25 hr, Route: IV, Dosing Weight 141.364 kg, Total Volume: 1,000, Start date: 04/04/18 14:14:00 CDT, Duration: 30 day, Stop date: 05/04/18 14:13:00 CDT, 2.56, m2 Lactated 2018-0 No 1,000 mL, [place] [facility] IV 6-04 Rate: 40 l 1,000 mL 19:14: ml/hr, [place] 00 Infuse over: 25 hr, Route: IV, [...] Rate: 40 l 1,000 mL 19:14: ml/hr, [place] 00 Infuse over: 25 hr, Route: IV, [...] Rate: 40 l 1,000 mL 19:14: ml/hr, [place] 00 Infuse over: 25 hr, Route: IV, Dosing Weight 141.364 kg, Total Volume: 1,000, Start date: 04/04/18 14:14:00 CDT, Duration: 30 day, Stop date: 05/04/18 14:13:00 CDT, 2.56, m2 Lactated 2018-0 No 1,000 mL, [place] [facility] IV 6-04 Rate: 40 l 1,000 mL 19:14: ml/hr, [place] 00 Infuse over: 25 hr, Route: IV, [...] Rate: 40 l 1,000 mL 19:14: ml/hr, [place] 00 Infuse over: 25 hr, Route: IV, [...] Rate: 40 l 1,000 mL 19:14: ml/hr, [place] 00 Infuse over: 25 hr, Route: IV, Dosing Weight 141.364 kg, Total Volume: 1,000, Start date: 04/04/18 14:14:00 CDT, Duration: 30 day, Stop date: 05/04/18 14:13:00 CDT, 2.56, m2 Lactated 2018-0 No 1,000 mL, [place] [facility] IV 6-04 Rate: 40 l 1,000 mL 19:14: ml/hr, [place] 00 Infuse over: 25 hr, Route: IV, Dosing Weight 141.364 kg, Total Volume: 1,000, Start date: 04/04/18 14:14:00 CDT, Duration: 30 day, Stop date: 05/04/18 14:13:00 CDT, 2.56, m2 Lactated 2018-0 No 1,000 mL, [place] [facility] IV 6-04 Rate: 40 l 1,000 mL 19:14: ml/hr, [place] 00 Infuse over: 25 hr, Route: IV, Dosing Weight 141.364 kg, Total Volume: 1,000, Start date: 04/04/18 14:14:00 CDT, Duration: 30 day, Stop date: 05/04/18 14:13:00 CDT, 2.56, m2 Lactated 2018-0 No 1,000 mL, [place] [facility] IV 6-04 Rate: 40 l 1,000 mL 19:14: ml/hr, [place] 00 Infuse over: 25 hr, Route: IV, [...] Rate: 40 l 1,000 mL 19:14: ml/hr, [place] 00 Infuse over: 25 hr, Route: IV, [...] Rate: 40 l 1,000 mL 19:14: ml/hr, [place] 00 Infuse over: 25 hr, Route: IV, [...] Rate: 40 l 1,000 mL 19:14: ml/hr, [place] 00 Infuse over: 25 hr, Route: IV, [...] Rate: 40 l 1,000 mL 19:14: ml/hr, [place] 00 Infuse over: 25 hr, Route: IV, Dosing Weight 141.364 kg, Total Volume: 1,000, Start date: 04/04/18 14:14:00 CDT, Duration: 30 day, Stop date: 05/04/18 14:13:00 CDT, 2.56, m2 Humulin 2018-0 Yes 60 unit, [facility] 70/30 5-15 SUB-Q, l 18:44: QPM, 0 [place] 00 Refill(s) Humulin 2018-0 Yes 60 unit, [facility] 70/30 5-15 SUB-Q, l 18:44: QPM, 0 [place] 00 Refill(s) Humulin 2018-0 Yes 60 unit, [...] 70/30 5-15 SUB-Q, l 18:44: QPM, 0 [place] 00 Refill(s) Humulin 2018-0 Yes 60 unit, [facility] 70/30 5-15 SUB-Q, l 18:44: QPM, 0 [place] 00 Refill(s) Humulin 2018-0 Yes 60 unit, [facility] 70/30 5-15 SUB-Q, l 18:44: QPM, 0 [place] 00 Refill(s) Humulin 2018-0 Yes 60 unit, [facility] 70/30 5-15 SUB-Q, l 18:44: QPM, 0 [place] 00 Refill(s) Humulin 2018-0 Yes 60 unit, [facility] 70/30 5-15 SUB-Q, l 18:44: QPM, 0 [place] 00 Refill(s) Humulin 2018-0 Yes 60 unit, [facility] 70/30 5-15 SUB-Q, l 18:44: QPM, 0 [place] 00 Refill(s) Humulin 2018-0 Yes 60 unit, [facility] 70/30 5-15 SUB-Q, l 18:44: QPM, 0 [place] 00 Refill(s) Humulin 2018-0 Yes 60 unit, [facility] 70/30 5-15 SUB-Q, l 18:44: QPM, 0 [place] 00 Refill(s) Humulin 2017-0 Yes 60 unit, [facility] 70/30 5-15 SUB-Q, l 18:44: QPM, 0 [place] 00 Refill(s) Humulin 2018-0 Yes 60 unit, [facility] 70/30 5-15 SUB-Q, l 18:44: QPM, 0 [place] 00 Refill(s) Humulin 2018-0 Yes 60 unit, [facility] 70/30 5-15 SUB-Q, l 18:44: QPM, 0 [place] 00 Refill(s) Humulin 2018-0 Yes 60 unit, [facility] 70/30 5-15 SUB-Q, l 18:44: QPM, 0 [place] 00 Refill(s) Humulin 2018-0 Yes 60 unit, [facility] 70/30 5-15 SUB-Q, l 18:44: QPM, 0 [place] 00 Refill(s) Humulin 2018-0 Yes 60 unit, [facility] 70/30 5-15 SUB-Q, l 18:44: QPM, 0 [place] 00 Refill(s) Humulin 2018-0 Yes 60 unit, [facility] 70/30 5-15 SUB-Q, l 18:44: QPM, 0 [place] 00 Refill(s) Humulin 2018-0 Yes 60 unit, [...] 70/30 5-15 SUB-Q, l 18:44: QPM, 0 [place] 00 Refill(s) Humulin 2018-0 Yes 60 unit, [facility] 70/30 5-15 SUB-Q, l 18:44: QPM, 0 [place] 00 Refill(s) Humulin 2018-0 Yes 60 unit, [facility] 70/30 5-15 SUB-Q, l 18:44: QPM, 0 [place] 00 Refill(s) Humulin 2018-0 Yes 60 unit, [facility] 70/30 5-15 SUB-Q, l 18:44: QPM, 0 [place] 00 Refill(s) Humulin 2018-0 Yes 60 unit, [facility] 70/30 5-15 SUB-Q, l 18:44: QPM, 0 [place] 00 Refill(s) Humulin 2018-0 Yes 60 unit, [...] 70/30 5-15 SUB-Q, l 18:44: QPM, 0 [place] 00 Refill(s) Humulin 2018-0 Yes 60 unit, [facility] 70/30 5-15 SUB-Q, l 18:44: QPM, 0 [place] 00 Refill(s) Humulin 2018-0 Yes 60 unit, [facility] 70/30 5-15 SUB-Q, l 18:44: QPM, 0 [place] 00 Refill(s) Humulin 2018-0 Yes 60 unit, [facility] 70/30 5-15 SUB-Q, l 18:44: QPM, 0 [place] 00 Refill(s) Humulin 2018-0 Yes 60 unit, [facility] 70/30 5-15 SUB-Q, l 18:44: QPM, 0 [place] 00 Refill(s) Humulin 2018-0 Yes 60 unit, [facility] 70/30 5-15 SUB-Q, l 18:44: QPM, 0 [place] 00 Refill(s) Humulin 2018-0 Yes 60 unit, [facility] 70/30 5-15 SUB-Q, l 18:44: QPM, 0 [place] 00 Refill(s) Humulin 2018-0 Yes 60 unit, [facility] 70/30 5-15 SUB-Q, l 18:44: QPM, 0 [place] 00 Refill(s) Humulin 2018-0 Yes 60 unit, [...] 70/30 5-15 SUB-Q, l 18:44: QPM, 0 [place] 00 Refill(s) Humulin 2017-0 Yes 60 unit, [facility] 70/30 5-15 SUB-Q, l 18:44: QPM, 0 [place] 00 Refill(s) Humulin 2017-0 Yes 60 unit, [facility] 70/30 5-15 SUB-Q, l 18:44: QPM, 0 [place] 00 Refill(s) Humulin 2017-0 Yes 60 unit, [facility] 70/30 5-15 SUB-Q, l 18:44: QPM, 0 [place] 00 Refill(s) Humulin 2017-0 Yes 60 unit, [facility] 70/30 5-15 SUB-Q, l 18:44: QPM, 0 [place] 00 Refill(s) Humulin 2018-0 Yes 60 unit, [facility] 70/30 5-15 SUB-Q, l 18:44: QPM, 0 [place] 00 Refill(s) Humulin 2017-0 Yes 60 unit, [facility] 70/30 5-15 SUB-Q, l 18:44: QPM, 0 [place] 00 Refill(s) Humulin 2017-0 Yes 60 unit, [facility] 70/30 5-15 SUB-Q, l 18:44: QPM, 0 [place] 00 Refill(s) Humulin 2018-0 Yes 60 unit, [facility] 70/30 5-15 SUB-Q, l 18:44: QPM, 0 [place] 00 Refill(s) Humulin 2018-0 Yes 60 unit, [facility] 70/30 5-15 SUB-Q, l 18:44: QPM, 0 [place] 00 Refill(s) Humulin 2018-0 Yes 60 unit, [facility] 70/30 5-15 SUB-Q, l 18:44: QPM, 0 [place] 00 Refill(s) Humulin 2018-0 Yes 60 unit, [facility] 70/30 5-15 SUB-Q, l 18:44: QPM, 0 [place] 00 Refill(s) Humulin 2018-0 Yes 60 unit, [facility] 70/30 5-15 SUB-Q, l 18:44: QPM, 0 [place] 00 Refill(s) Humulin 2018-0 Yes 60 unit, [facility] 70/30 5-15 SUB-Q, l 18:44: QPM, 0 [place] 00 Refill(s) Humulin 2018-0 Yes 60 unit, [facility] 70/30 5-15 SUB-Q, l 18:44: QPM, 0 [place] 00 Refill(s) Humulin 2018-0 Yes 60 unit, [facility] 70/30 5-15 SUB-Q, l 18:44: QPM, 0 [place] 00 Refill(s) Humulin 2018-0 Yes 60 unit, [facility] 70/30 5-15 SUB-Q, l 18:44: QPM, 0 [place] 00 Refill(s) Humulin 2018-0 Yes 60 unit, [facility] 70/30 5-15 SUB-Q, l 18:44: QPM, 0 [place] 00 Refill(s) Humulin 2018-0 Yes 60 unit, [facility] 70/30 5-15 SUB-Q, l 18:44: QPM, 0 [place] 00 Refill(s) Humulin 2018-0 Yes 60 unit, [facility] 70/30 5-15 SUB-Q, l 18:44: QPM, 0 [place] 00 Refill(s) Humulin 2018-0 Yes 60 unit, [facility] 70/30 5-15 SUB-Q, l 18:44: QPM, 0 [place] 00 Refill(s) Humulin 2018-0 Yes 60 unit, [facility] 70/30 5-15 SUB-Q, l 18:44: QPM, 0 [place] 00 Refill(s) Humulin 2018-0 Yes 60 unit, [facility] 70/30 5-15 SUB-Q, l 18:44: QPM, 0 [place] 00 Refill(s) Humulin 2018-0 Yes 60 unit, [facility] 70/30 5-15 SUB-Q, l 18:44: QPM, 0 [place] 00 Refill(s) Humulin 2018-0 Yes 60 unit, [facility] 70/30 5-15 SUB-Q, l 18:44: QPM, 0 [place] 00 Refill(s) Humulin 2018-0 Yes 60 unit, [facility] 70/30 5-15 SUB-Q, l 18:44: QPM, 0 [place] 00 Refill(s) Humulin 2018-0 Yes 60 unit, [facility] 70/30 5-15 SUB-Q, l 18:44: QPM, 0 [place] 00 Refill(s) Humulin 2018-0 Yes 60 unit, [facility] 70/30 5-15 SUB-Q, l 18:44: QPM, 0 [place] 00 Refill(s) Humulin 2018-0 Yes 60 unit, [facility] 70/30 5-15 SUB-Q, l 18:44: QPM, 0 [place] 00 Refill(s) Humulin 2018-0 Yes 60 unit, [facility] 70/30 5-15 SUB-Q, l 18:44: QPM, 0 [place] 00 Refill(s) Humulin 2018-0 Yes 70 unit, [facility] 70/30 5-15 SUB-Q, l 18:43: QAM, 0 [place] 00 Refill(s) Humulin 2018-0 Yes 70 unit, [...] 70/30 5-15 SUB-Q, l 18:43: QAM, 0 [place] 00 Refill(s) Humulin 2017-0 Yes 70 unit, [facility] 70/30 5-15 SUB-Q, l 18:43: QAM, 0 [place] 00 Refill(s) Humulin 2018-0 Yes 70 unit, [...] 70/30 5-15 SUB-Q, l 18:43: QAM, 0 [place] 00 Refill(s) Humulin 2018-0 Yes 70 unit, [facility] 70/30 5-15 SUB-Q, l 18:43: QAM, 0 [place] 00 Refill(s) Humulin 2018-0 Yes 70 unit, [facility] 70/30 5-15 SUB-Q, l 18:43: QAM, 0 [place] 00 Refill(s) Humulin 2018-0 Yes 70 unit, [facility] 70/30 5-15 SUB-Q, l 18:43: QAM, 0 [place] 00 Refill(s) Humulin 2018-0 Yes 70 unit, [facility] 70/30 5-15 SUB-Q, l 18:43: QAM, 0 [place] 00 Refill(s) Humulin 2018-0 Yes 70 unit, [facility] 70/30 5-15 SUB-Q, l 18:43: QAM, 0 [place] 00 Refill(s) Humulin 2018-0 Yes 70 unit, [facility] 70/30 5-15 SUB-Q, l 18:43: QAM, 0 [place] 00 Refill(s) Humulin 2018-0 Yes 70 unit, [facility] 70/30 5-15 SUB-Q, l 18:43: QAM, 0 [place] 00 Refill(s) Humulin 2018-0 Yes 70 unit, [facility] 70/30 5-15 SUB-Q, l 18:43: QAM, 0 [place] 00 Refill(s) Humulin 2017-0 Yes 70 unit, [facility] 70/30 5-15 SUB-Q, l 18:43: QAM, 0 [place] 00 Refill(s) Humulin 2018-0 Yes 70 unit, [facility] 70/30 5-15 SUB-Q, l 18:43: QAM, 0 [place] 00 Refill(s) Humulin 2018-0 Yes 70 unit, [facility] 70/30 5-15 SUB-Q, l 18:43: QAM, 0 [place] 00 Refill(s) Humulin 2018-0 Yes 70 unit, [facility] 70/30 5-15 SUB-Q, l 18:43: QAM, 0 [place] 00 Refill(s) Humulin 2018-0 Yes 70 unit, [facility] 70/30 5-15 SUB-Q, l 18:43: QAM, 0 [place] 00 Refill(s) Humulin 2018-0 Yes 70 unit, [facility] 70/30 5-15 SUB-Q, l 18:43: QAM, 0 [place] 00 Refill(s) Humulin 2018-0 Yes 70 unit, [facility] 70/30 5-15 SUB-Q, l 18:43: QAM, 0 [place] 00 Refill(s) Humulin 2018-0 Yes 70 unit, [facility] 70/30 5-15 SUB-Q, l 18:43: QAM, 0 [place] 00 Refill(s) Humulin 2018-0 Yes 70 unit, [facility] 70/30 5-15 SUB-Q, l 18:43: QAM, 0 [place] 00 Refill(s) Humulin 2018-0 Yes 70 unit, [facility] 70/30 5-15 SUB-Q, l 18:43: QAM, 0 [place] 00 Refill(s) Humulin 2018-0 Yes 70 unit, [facility] 70/30 5-15 SUB-Q, l 18:43: QAM, 0 [place] 00 Refill(s) Humulin 2018-0 Yes 70 unit, [facility] 70/30 5-15 SUB-Q, l 18:43: QAM, 0 [place] 00 Refill(s) Humulin 2017-0 Yes 70 unit, [facility] 70/30 5-15 SUB-Q, l 18:43: QAM, 0 [place] 00 Refill(s) Humulin 2017-0 Yes 70 unit, [facility] 70/30 5-15 SUB-Q, l 18:43: QAM, 0 [place] 00 Refill(s) Humulin 2017-0 Yes 70 unit, [facility] 70/30 5-15 SUB-Q, l 18:43: QAM, 0 [place] 00 Refill(s) Humulin 2017-0 Yes 70 unit, [facility] 70/30 5-15 SUB-Q, l 18:43: QAM, 0 [place] 00 Refill(s) Humulin 2018-0 Yes 70 unit, [facility] 70/30 5-15 SUB-Q, l 18:43: QAM, 0 [place] 00 Refill(s) Humulin 2018-0 Yes 70 unit, [facility] 70/30 5-15 SUB-Q, l 18:43: QAM, 0 [place] 00 Refill(s) Humulin 2018-0 Yes 70 unit, [facility] 70/30 5-15 SUB-Q, l 18:43: QAM, 0 [place] 00 Refill(s) Humulin 2018-0 Yes 70 unit, [facility] 70/30 5-15 SUB-Q, l 18:43: QAM, 0 [place] 00 Refill(s) Humulin 2018-0 Yes 70 unit, [...] 70/30 5-15 SUB-Q, l 18:43: QAM, 0 [place] 00 Refill(s) Humulin 2018-0 Yes 70 unit, [facility] 70/30 5-15 SUB-Q, l 18:43: QAM, 0 [place] 00 Refill(s) Humulin 2018-0 Yes 70 unit, [facility] 70/30 5-15 SUB-Q, l 18:43: QAM, 0 [place] 00 Refill(s) Humulin 2018-0 Yes 70 unit, [facility] 70/30 5-15 SUB-Q, l 18:43: QAM, 0 [place] 00 Refill(s) Humulin 2018-0 Yes 70 unit, [facility] 70/30 5-15 SUB-Q, l 18:43: QAM, 0 [place] 00 Refill(s) Humulin 2018-0 Yes 70 unit, [...] 70/30 5-15 SUB-Q, l 18:43: QAM, 0 [place] 00 Refill(s) Humulin 2018-0 Yes 70 unit, [facility] 70/30 5-15 SUB-Q, l 18:43: QAM, 0 [place] 00 Refill(s) Humulin 2018-0 Yes 70 unit, [facility] 70/30 5-15 SUB-Q, l 18:43: QAM, 0 [place] 00 Refill(s) Humulin 2018-0 Yes 70 unit, [facility] 70/30 5-15 SUB-Q, l 18:43: QAM, 0 [place] 00 Refill(s) Humulin 2018-0 Yes 70 unit, [facility] a 70/30 5-15 SUB-Q, l 18:43: QAM, 0 [place] 00 Refill(s) Humulin 2018-0 Yes 70 unit, [facility] 70/30 5-15 SUB-Q, l 18:43: QAM, 0 [place] 00 Refill(s) Humulin 2017-0 Yes 70 unit, [facility] 70/30 5-15 SUB-Q, l 18:43: QAM, 0 [place] 00 Refill(s) Humulin 2017-0 Yes 70 unit, [facility] 70/30 5-15 SUB-Q, l 18:43: QAM, 0 [place] 00 Refill(s) Humulin 2018-0 Yes 70 unit, [facility] a 70/30 5-15 SUB-Q, l 18:43: QAM, 0 [place] 00 Refill(s) Humulin 2018-0 Yes 70 unit, [facility] a 70/30 5-15 SUB-Q, l 18:43: QAM, 0 [place] 00 Refill(s) Humulin 2018-0 Yes 70 unit, [facility] a 70/30 5-15 SUB-Q, l 18:43: QAM, 0 [place] 00 Refill(s) Humulin 2018-0 Yes 70 unit, [facility] a 70/30 5-15 SUB-Q, l 18:43: QAM, 0 [place] 00 Refill(s) Humulin 2018-0 Yes 70 unit, [facility] a 70/30 5-15 SUB-Q, l 18:43: QAM, 0 [place] 00 Refill(s) Humulin 2018-0 Yes 70 unit, [facility] 70/30 5-15 SUB-Q, l 18:43: QAM, 0 [place] 00 Refill(s) Humulin 2017-0 Yes 70 unit, [facility] a 70/30 5-15 SUB-Q, l 18:43: QAM, 0 [place] 00 Refill(s) Humulin Yes 70 unit, Memori [...] 70/30 5-15 SUB-Q, l 18:43: QAM, 0 [place] 00 Refill(s) Humulin Yes 70 unit, [facility] a 70/30 5-15 SUB-Q, l 18:43: QAM, 0 [place] 00 Refill(s) albuterol 2015-11 Yes 2{puff} Inhale [...] tab, PO, l Tablet 16:37: TID, 0 [place] [Xanax] 00 Refill(s) Alprazolam Yes 2 mg [...] tab, PO, l Tablet 16:37: TID, 0 [place] [Xanax] 00 Refill(s) Alprazolam 20160 Yes 2 mg = 1 [facility] o[facility] 2 MG Oral -07 tab, PO, l Tablet 16:37: TID, 0 [place] [Xanax] 00 Refill(s) Alprazolam 20160 Yes 2 mg = 1 [facility] o[facility] 2 MG Oral -07 tab, PO, l Tablet 16:37: TID, 0 [place] [Xanax] 00 Refill(s) Alprazolam 20160 Yes 2 mg = 1 [facility] o[facility] 2 MG Oral -07 tab, PO, l Tablet 16:37: TID, 0 [place] [Xanax] 00 Refill(s) Alprazolam 20160 Yes 2 mg = 1 [facility] 2 MG Oral -07 tab, PO, l Tablet 16:37: TID, 0 [place] [Xanax] 00 Refill(s) Alprazolam 20160 Yes 2 mg = 1 [facility] 2 MG Oral 1-07 tab, PO, l Tablet 16:37: TID, 0 [place] [Xanax] 00 Refill(s) Alprazolam 20160 Yes 2 mg = 1 [facility] o[facility] 2 MG Oral 1-07 tab, PO, l Tablet 16:37: TID, 0 [place] [Xanax] 00 Refill(s) Alprazolam 20160 Yes 2 mg = 1 [facility] 2 MG Oral -07 tab, PO, l Tablet 16:37: TID, 0 [place] [Xanax] 00 Refill(s) Alprazolam 20160 Yes 2 mg = 1 [facility] o[facility] 2 MG Oral -07 tab, PO, l Tablet 16:37: TID, 0 [place] [Xanax] 00 Refill(s) Alprazolam 20160 Yes 2 mg = 1 [facility] 2 MG Oral 11-07 tab, PO, l Tablet 16:37: TID, 0 [place] [Xanax] 00 Refill(s) Alprazolam 20160 Yes 2 [...] tab, PO, l Tablet 16:37: TID, 0 [place] [Xanax] 00 Refill(s) Alprazolam 20160 Yes 2 mg = 1 [facility] o[facility] 2 MG Oral 07 tab, PO, l Tablet 16:37: TID, 0 [place] [Xanax] 00 Refill(s) Alprazolam 20160 Yes 2 mg = 1 [facility] o[facility] 2 MG Oral -07 tab, PO, l Tablet 16:37: TID, 0 [place] [Xanax] 00 Refill(s) Alprazolam 0 Yes 2 [...] tab, PO, l Tablet 16:37: TID, 0 [place] [Xanax] 00 Refill(s) Alprazolam 20160 Yes 2 mg = 1 [facility] 2 MG Oral 11-07 tab, PO, l Tablet 16:37: TID, 0 [place] [Xanax] 00 Refill(s) Alprazolam 20160 Yes 2 mg = 1 [facility] 2 MG Oral 11-07 tab, PO, l Tablet 16:37: TID, 0 [place] [Xanax] 00 Refill(s) Alprazolam 2016 Yes 2 [...] tab, PO, l Tablet 16:37: TID, 0 [place] [Xanax] 00 Refill(s) Alprazolam 20160 Yes 2 mg = 1 [facility] 2 MG Oral -07 tab, PO, l Tablet 16:37: TID, 0 [place] [Xanax] 00 Refill(s) Alprazolam 2016 Yes 2 mg = 1 [facility] 2 MG Oral -07 tab, PO, l Tablet 16:37: TID, 0 [place] [Xanax] 00 Refill(s) Alprazolam 20160 Yes 2 mg = 1 [facility] 2 MG Oral 11-07 tab, PO, l Tablet 16:37: TID, 0 [place] [Xanax] 00 Refill(s) Alprazolam 20160 Yes 2 mg = 1 [facility] 2 MG Oral 11-07 tab, PO, l Tablet 16:37: TID, 0 [place] [Xanax] 00 Refill(s) Alprazolam 20160 Yes 2 mg = 1 [facility] 2 MG Oral 11-07 tab, PO, l Tablet 16:37: TID, 0 [place] [Xanax] 00 Refill(s) Alprazolam 20160 Yes 2 mg = 1 [facility] 2 MG Oral 11-07 tab, PO, l Tablet 16:37: TID, 0 [place] [Xanax] 00 Refill(s) Alprazolam 2016 Yes 2 [...] tab, PO, l Tablet 16:37: TID, 0 [place] [Xanax] 00 Refill(s) Alprazolam 0 Yes 2 mg = 1 [facility] 2 MG Oral 1-07 tab, PO, l Tablet 16:37: TID, 0 [place] [Xanax] 00 Refill(s) Alprazolam 20160 Yes 2 mg = 1 [facility] 2 MG Oral -07 tab, PO, l Tablet 16:37: TID, 0 [place] [Xanax] 00 Refill(s) Alprazolam 20160 Yes 2 [...] tab, PO, l Tablet 16:37: TID, 0 [place] [Xanax] 00 Refill(s) Alprazolam 0 Yes 2 mg = 1 [facility] 2 MG Oral -07 tab, PO, l Tablet 16:37: TID, 0 [place] [Xanax] 00 Refill(s) Alprazolam 2016 Yes 2 mg = 1 [facility] 2 MG Oral -07 tab, PO, l Tablet 16:37: TID, 0 [place] [Xanax] 00 Refill(s) Alprazolam 0 Yes 2 mg = 1 [facility] 2 MG Oral -07 tab, PO, l Tablet 16:37: TID, 0 [place] [Xanax] 00 Refill(s) Alprazolam 0 Yes 2 mg = 1 [facility] 2 MG Oral 1-07 tab, PO, l Tablet 16:37: TID, 0 [place] [Xanax] 00 Refill(s) Alprazolam Yes 2 mg = 1 [facility] 2 MG Oral 1-07 tab, PO, l Tablet 16:37: TID, 0 [place] [Xanax] 00 Refill(s) Alprazolam 2016-0 Yes 2 mg = 1 [facility] 2 MG Oral 1-07 tab, PO, l Tablet 16:37: TID, 0 [place] [Xanax] 00 Refill(s) Alprazolam 20160 Yes 2 [...] tab, PO, l Tablet 16:37: TID, 0 [place] [Xanax] 00 Refill(s) Alprazolam 2016 Yes 2 mg = 1 [facility] 2 MG Oral 07 tab, PO, l Tablet 16:37: TID, 0 [place] [Xanax] 00 Refill(s) Alprazolam 20160 Yes 2 mg = 1 [facility] 2 MG Oral 07 tab, PO, l Tablet 16:37: TID, 0 [place] [Xanax] 00 Refill(s) Alprazolam 20160 Yes 2 [...] tab, PO, l Tablet 16:37: TID, 0 [place] [Xanax] 00 Refill(s) Alprazolam Yes 2 mg [...] tab, PO, l Tablet 16:37: TID, 0 [place] [Xanax] 00 Refill(s) Alprazolam Yes 2 mg = 1 [facility] 2 MG Oral 07 tab, PO, l Tablet 16:37: TID, 0 [place] [Xanax] 00 Refill(s) Alprazolam Yes 2 mg = 1 [facility] 2 MG Oral -07 tab, PO, l Tablet 16:37: TID, 0 [place] [Xanax] 00 Refill(s) Nitroglycer Yes 0.4 mg [...] Pain, # 100 tab, 0 Refill(s) Promethazin 2016-0 Yes 5 mL, PO, M [...] 1-07 PRN, 0 l Codeine 16:21: Refill(s) Alexnadria nn 00 Promethazin 2016-0 Yes 5 mL, [...] ermann Bitartrate 00 10 MG Oral Tablet [[place] 10/325] Acetaminoph Yes 1 tab, PO, Memoria en 325 MG / -07 BID, 0 l Hydrocodone 16:19: Refill(s) H ermann Bitartrate 00 10 MG Oral Tablet [[place] 10/325] Acetaminoph Yes 1 tab, PO, Memoria en 325 MG / 1-07 BID, 0 l Hydrocodone 16:19: Refill(s) H ermann Bitartrate 00 10 MG Oral Tablet [[place] 10/325] Acetaminoph Yes 1 tab, PO, Memoria en 325 MG / 1-07 BID, 0 l Hydrocodone 16:19: Refill(s) H ermann Bitartrate 00 10 MG Oral Tablet [[place] 10/325] Acetaminoph Yes 1 tab, PO, Memoria en 325 MG / -07 BID, 0 l Hydrocodone 16:19: Refill(s) H ermann Bitartrate 00 10 MG Oral Tablet [[place] 10/325] Acetaminoph Yes 1 tab, PO, Memoria en 325 MG / 1-07 BID, 0 l Hydrocodone 16:19: Refill(s) H ermann Bitartrate 00 10 MG Oral Tablet [[place] 10/325] Acetaminoph Yes 1 tab, PO, Memoria en 325 MG / 1-07 BID, 0 l Hydrocodone 16:19: Refill(s) H ermann Bitartrate 00 10 MG Oral Tablet [[place] 10/325] Acetaminoph Yes 1 tab, PO, Memoria en 325 MG / 1-07 BID, 0 l Hydrocodone 16:19: Refill(s) H ermann Bitartrate 00 10 MG Oral Tablet [[place] 10/325] Acetaminoph Yes 1 tab, PO, Memoria en 325 MG / 1-07 BID, 0 l Hydrocodone 16:19: Refill(s) H ermann Bitartrate 00 10 MG Oral Tablet [[place] 10/325] Acetaminoph Yes 1 tab, PO, Memoria en 325 MG / 1-07 BID, 0 l Hydrocodone 16:19: Refill(s) H ermann Bitartrate 00 10 MG Oral Tablet [[place] 10/325] Acetaminoph Yes 1 tab, PO, Memoria en 325 MG / 1-07 BID, 0 l Hydrocodone 16:19: Refill(s) H ermann Bitartrate 00 10 MG Oral Tablet [[place] 10/325] Acetaminoph Yes 1 tab, PO, Memoria en 325 MG / 1-07 BID, 0 l Hydrocodone 16:19: Refill(s) H ermann Bitartrate 00 10 MG Oral Tablet [[place] 10/325] Acetaminoph Yes 1 tab, PO, Memoria en 325 MG / 1-07 BID, 0 l Hydrocodone 16:19: Refill(s) H ermann Bitartrate 00 10 MG Oral Tablet [[place] 10/325] Acetaminoph Yes 1 tab, PO, Memoria en 325 MG / 1-07 BID, 0 l Hydrocodone 16:19: Refill(s) H ermann Bitartrate 00 10 MG Oral Tablet [[place] 10/325] Acetaminoph Yes 1 tab, PO, Memoria en 325 MG / 1-07 BID, 0 l Hydrocodone 16:19: Refill(s) H ermann Bitartrate 00 10 MG Oral Tablet [[place] 10/325] Acetaminoph Yes 1 tab, PO, Memoria en 325 MG / 1-07 BID, 0 l Hydrocodone 16:19: Refill(s) H ermann Bitartrate 00 10 MG Oral Tablet [[place] 10/325] Acetaminoph Yes 1 tab, PO, Memoria en 325 MG / 1-07 BID, 0 l Hydrocodone 16:19: Refill(s) H [place] Bitartrate 00 10 MG Oral Tablet [[place] 10/325] Acetaminoph Yes 1 tab, PO, Memoria en 325 MG / 1-07 BID, 0 l Hydrocodone 16:19: Refill(s) H ermann Bitartrate 00 10 MG Oral Tablet [[place] 10/325] Acetaminoph Yes 1 tab, PO, Memoria en 325 MG / 1-07 BID, 0 l Hydrocodone 16:19: Refill(s) H [place] Bitartrate 00 10 MG Oral Tablet [[place] 10/325] Acetaminoph Yes 1 tab, PO, Memoria en 325 MG / 1-07 BID, 0 l Hydrocodone 16:19: Refill(s) H [place] Bitartrate 00 10 MG Oral Tablet [[place] 10/325] Acetaminoph Yes 1 tab, PO, Memoria en 325 MG / 1-07 BID, 0 l Hydrocodone 16:19: Refill(s) H ermann Bitartrate 00 10 MG Oral Tablet [[place] 10/325] Acetaminoph Yes 1 tab, PO, Memoria en 325 MG / 1-07 BID, 0 l Hydrocodone 16:19: Refill(s) H ermann Bitartrate 00 10 MG Oral Tablet [[place] 10/325] Acetaminoph Yes 1 tab, PO, Memoria en 325 MG / 1-07 BID, 0 l Hydrocodone 16:19: Refill(s) H ermann Bitartrate 00 10 MG Oral Tablet [[place] 10/325] Acetaminoph Yes 1 tab, PO, Memoria en 325 MG / 1-07 BID, 0 l Hydrocodone 16:19: Refill(s) H ermann Bitartrate 00 10 MG Oral Tablet [[place] 10/325] Acetaminoph Yes 1 tab, PO, Memoria en 325 MG / 1-07 BID, 0 l Hydrocodone 16:19: Refill(s) H ermann Bitartrate 00 10 MG Oral Tablet [[place] 10/325] Acetaminoph Yes 1 tab, PO, Memoria en 325 MG / 1-07 BID, 0 l Hydrocodone 16:19: Refill(s) H ermann Bitartrate 00 10 MG Oral Tablet [[place] 10/325] Acetaminoph Yes 1 tab, PO, Memoria en 325 MG / 1-07 BID, 0 l Hydrocodone 16:19: Refill(s) H ermann Bitartrate 00 10 MG Oral Tablet [[place] 10/325] Acetaminoph Yes 1 tab, PO, Memoria en 325 MG / 1-07 BID, 0 l Hydrocodone 16:19: Refill(s) H ermann Bitartrate 00 10 MG Oral Tablet [[place] 10/325] Acetaminoph Yes 1 tab, PO, Memoria en 325 MG / 1-07 BID, 0 l Hydrocodone 16:19: Refill(s) H ermann Bitartrate 00 10 MG Oral Tablet [[place] 10/325] Acetaminoph Yes 1 tab, PO, Memoria en 325 MG / 1-07 BID, 0 l Hydrocodone 16:19: Refill(s) H ermann Bitartrate 00 10 MG Oral Tablet [[place] 10/325] Acetaminoph Yes 1 tab, PO, Memoria en 325 MG / 1-07 BID, 0 l Hydrocodone 16:19: Refill(s) H [place] Bitartrate 00 10 MG Oral Tablet [[place] 10/325] Acetaminoph Yes 1 tab, PO, Memoria en 325 MG / 1-07 BID, 0 l Hydrocodone 16:19: Refill(s) H [place] Bitartrate 00 10 MG Oral Tablet [[place] 10/325] Acetaminoph Yes 1 tab, PO, Memoria en 325 MG / 1-07 BID, 0 l Hydrocodone 16:19: Refill(s) H [place] Bitartrate 00 10 MG Oral Tablet [[place] 10/325] Acetaminoph Yes 1 tab, PO, Memoria en 325 MG / 1-07 BID, 0 l Hydrocodone 16:19: Refill(s) H [place] Bitartrate 00 10 MG Oral Tablet [[place] 10/325] Acetaminoph Yes 1 tab, PO, Memoria en 325 MG / 1-07 BID, 0 l Hydrocodone 16:19: Refill(s) H [place] Bitartrate 00 10 MG Oral Tablet [[place] 10/325] Acetaminoph Yes 1 tab, PO, Memoria en 325 MG / 1-07 BID, 0 l Hydrocodone 16:19: Refill(s) H [place] Bitartrate 00 10 MG Oral Tablet [[place] 10/325] Acetaminoph Yes 1 tab, PO, Memoria en 325 MG / 1-07 BID, 0 l Hydrocodone 16:19: Refill(s) H [place] Bitartrate 00 10 MG Oral Tablet [[place] 10/325] Acetaminoph Yes 1 tab, PO, Memoria en 325 MG / -07 BID, 0 l Hydrocodone 16:19: Refill(s) H [place] Bitartrate 00 10 MG Oral Tablet [[place] 10/325] Acetaminoph Yes 1 tab, PO, Memoria en 325 MG / -07 BID, 0 l Hydrocodone 16:19: Refill(s) H [place] Bitartrate 00 10 MG Oral Tablet [[place] 10/325] Acetaminoph Yes 1 tab, PO, Memoria en 325 MG / -07 BID, 0 l Hydrocodone 16:19: Refill(s) H [place] Bitartrate 00 10 MG Oral Tablet [[place] 10/325] Acetaminoph Yes 1 tab, PO, Memoria en 325 MG / -07 BID, 0 l Hydrocodone 16:19: Refill(s) H [place] Bitartrate 00 10 MG Oral Tablet [[place] 10/325] Acetaminoph Yes 1 tab, PO, Memoria en 325 MG / 1-07 BID, 0 l Hydrocodone 16:19: Refill(s) H [place] Bitartrate 00 10 MG Oral Tablet [[place] 10/325] Acetaminoph Yes 1 tab, PO, Memoria en 325 MG / 1-07 BID, 0 l Hydrocodone 16:19: Refill(s) H [place] Bitartrate 00 10 MG Oral Tablet [[place] 10/325] Acetaminoph Yes 1 tab, PO, Memoria en 325 MG / 1-07 BID, 0 l Hydrocodone 16:19: Refill(s) H [place] Bitartrate 00 10 MG Oral Tablet [[place] 10/325] Acetaminoph Yes 1 tab, PO, Memoria en 325 MG / 1-07 BID, 0 l Hydrocodone 16:19: Refill(s) H [place] Bitartrate 00 10 MG Oral Tablet [[place] 10/325] Acetaminoph Yes 1 tab, PO, Memoria en 325 MG / 1-07 BID, 0 l Hydrocodone 16:19: Refill(s) H [place] Bitartrate 00 10 MG Oral Tablet [[place] 10/325] Acetaminoph Yes 1 tab, PO, Memoria en 325 MG / 1-07 BID, 0 l Hydrocodone 16:19: Refill(s) H [place] Bitartrate 00 10 MG Oral Tablet [[place] 10/325] Acetaminoph Yes 1 tab, PO, Memoria en 325 MG / 1-07 BID, 0 l Hydrocodone 16:19: Refill(s) H [place] Bitartrate 00 10 MG Oral Tablet [[place] 10/325] Acetaminoph Yes 1 tab, PO, Memoria en 325 MG / 1-07 BID, 0 l Hydrocodone 16:19: Refill(s) H ermann Bitartrate 00 10 MG Oral Tablet [[place] 10/325] Acetaminoph Yes 1 tab, PO, Memoria en 325 MG / 1-07 BID, 0 l Hydrocodone 16:19: Refill(s) H ermann Bitartrate 00 10 MG Oral Tablet [[place] 10/325] Acetaminoph Yes 1 tab, PO, Memoria en 325 MG / 1-07 BID, 0 l Hydrocodone 16:19: Refill(s) H ermann Bitartrate 00 10 MG Oral Tablet [[place] 10/325] Acetaminoph Yes 1 tab, PO, Memoria en 325 MG / 1-07 BID, 0 l Hydrocodone 16:19: Refill(s) H ermann Bitartrate 00 10 MG Oral Tablet [[place] 10/325] Acetaminoph Yes 1 tab, PO, Memoria en 325 MG / 1-07 BID, 0 l Hydrocodone 16:19: Refill(s) H ermann Bitartrate 00 10 MG Oral Tablet [[place] 10/325] Acetaminoph Yes 1 tab, PO, Memoria en 325 MG / 1-07 BID, 0 l Hydrocodone 16:19: Refill(s) H [place] Bitartrate 00 10 MG Oral Tablet [[place] 10/325] Acetaminoph Yes 1 tab, PO, Memoria en 325 MG / 1-07 BID, 0 l Hydrocodone 16:19: Refill(s) H [place] Bitartrate 00 10 MG Oral Tablet [[place] 10/325] Acetaminoph Yes 1 tab, PO, Memoria en 325 MG / 1-07 BID, 0 l Hydrocodone 16:19: Refill(s) H ermann Bitartrate 00 10 MG Oral Tablet [[place] 10/325] Acetaminoph Yes 1 tab, PO, Memoria en 325 MG / 1-07 BID, 0 l Hydrocodone 16:19: Refill(s) H [place] Bitartrate 00 10 MG Oral Tablet [[place] 10/325] Acetaminoph Yes 1 tab, PO, Memoria en 325 MG / 1-07 BID, 0 l Hydrocodone 16:19: Refill(s) H ermann Bitartrate 00 10 MG Oral Tablet [[place] 10/325] Acetaminoph Yes 1 tab, PO, Memoria en 325 MG / 1-07 BID, 0 l Hydrocodone 16:19: Refill(s) H ermann Bitartrate 00 10 MG Oral Tablet [[place] 10/325] Acetaminoph Yes 1 tab, PO, Memoria en 325 MG / 1-07 BID, 0 l Hydrocodone 16:19: Refill(s) H [place] Bitartrate 00 10 MG Oral Tablet [[place] 10/325] Acetaminoph Yes 1 tab, PO, Memoria en 325 MG / 1-07 BID, 0 l Hydrocodone 16:19: Refill(s) H [place] Bitartrate 00 10 MG Oral Tablet [[place] 10/325] Acetaminoph Yes 1 tab, PO, Memoria en 325 MG / 1-07 BID, 0 l Hydrocodone 16:19: Refill(s) H ermann Bitartrate 00 10 MG Oral Tablet [[place] 10/325] Acetaminoph Yes 1 tab, PO, Memoria en 325 MG / 1-07 BID, 0 l Hydrocodone 16:19: Refill(s) H ermann Bitartrate 00 10 MG Oral Tablet [[place] 10/325] Acetaminoph Yes 1 tab, PO, Memoria en 325 MG / 1-07 BID, 0 l Hydrocodone 16:19: Refill(s) H ermann Bitartrate 00 10 MG Oral Tablet [[place] 10/325] Acetaminoph Yes 1 tab, PO, Memoria en 325 MG / 1-07 BID, 0 l Hydrocodone 16:19: Refill(s) H [place] Bitartrate 00 10 MG Oral Tablet [[place] 10/325] Acetaminoph Yes 1 tab, PO, Memoria en 325 MG / 1-07 BID, 0 l Hydrocodone 16:19: Refill(s) H ermann Bitartrate 00 10 MG Oral Tablet [[place] 10/325] Acetaminoph Yes 1 tab, PO, Memoria en 325 MG / 1-07 BID, 0 l Hydrocodone 16:19: Refill(s) H ermann Bitartrate 00 10 MG Oral Tablet [[place] 10/325] Acetaminoph Yes 1 tab, PO, Memoria en 325 MG / 1-07 BID, 0 l Hydrocodone 16:19: Refill(s) H ermann Bitartrate 00 10 MG Oral Tablet [[place] 10/325] Acetaminoph Yes 1 tab, PO, Memoria en 325 MG / 1-07 BID, 0 l Hydrocodone 16:19: Refill(s) H ermann Bitartrate 00 10 MG Oral Tablet [[place] 10/325] Acetaminoph Yes 1 tab, PO, Memoria en 325 MG / 1-07 BID, 0 l Hydrocodone 16:19: Refill(s) H ermann Bitartrate 00 10 MG Oral Tablet [[place] 10/325] Acetaminoph Yes 1 tab, PO, Memoria en 325 MG / 1-07 BID, 0 l Hydrocodone 16:19: Refill(s) H [place] Bitartrate 00 10 MG Oral Tablet [[place] 10/325] Acetaminoph Yes 1 tab, PO, Memoria en 325 MG / 11-07 BID, 0 l Hydrocodone 16:19: Refill(s) H ermann Bitartrate 00 10 MG Oral Tablet [[place] 10/325] Acetaminoph Yes 1 tab, PO, Memoria en 325 MG / 11-07 BID, 0 l Hydrocodone 16:19: Refill(s) H ermann Bitartrate 00 10 MG Oral Tablet [[place] 10/325] Acetaminoph Yes 1 tab, PO, Memoria en 325 MG / 11-07 BID, 0 l Hydrocodone 16:19: Refill(s) H [place] Bitartrate 00 10 MG Oral Tablet [[place] 10/325] tizanidine Yes 4 mg = 1 [...] cap, PO, l capsule 16:17: BID, 0 [place] 00 Refill(s) cephalexin 2016-0 Yes 500 mg = 1 M emoria 500 mg oral 1-07 cap, PO, l capsule 16:17: BID, 0 [place] 00 Refill(s) cephalexin 2016-0 Yes 500 mg = 1 M emoria 500 mg oral 1-07 cap, PO, l capsule 16:17: BID, 0 [place] 00 Refill(s) cephalexin 2016-0 Yes 500 mg = 1 M emoria 500 mg oral 1-07 cap, PO, l capsule 16:17: BID, 0 [place] 00 Refill(s) cephalexin 2016-0 Yes 500 mg = 1 M emoria 500 mg oral 1-07 cap, PO, l capsule 16:17: BID, 0 [place] 00 Refill(s) cephalexin 2016-0 Yes 500 mg = 1 M emoria 500 mg oral 1-07 cap, PO, l capsule 16:17: BID, 0 [place] 00 Refill(s) cephalexin 2016-0 Yes 500 mg = 1 M emoria 500 mg oral 1-07 cap, PO, l capsule 16:17: BID, 0 [place] 00 Refill(s) cephalexin 2016-0 Yes 500 mg = 1 M emoria 500 mg oral 1-07 cap, PO, l capsule 16:17: BID, 0 [place] 00 Refill(s) cephalexin 2015-0 Yes 500 mg = 1 M emoria 500 mg oral 1-07 cap, PO, l capsule 16:17: BID, 0 [place] 00 Refill(s) cephalexin 2015-0 Yes 500 mg = 1 M emoria 500 mg oral 1-07 cap, PO, l capsule 16:17: BID, 0 [place] 00 Refill(s) cephalexin 2015-0 Yes 500 mg = 1 M emoria 500 mg oral 1-07 cap, PO, l capsule 16:17: BID, 0 [place] 00 Refill(s) cephalexin 2015-0 Yes 500 mg = 1 M emoria 500 mg oral 1-07 cap, PO, l capsule 16:17: BID, 0 [place] 00 Refill(s) cephalexin 2016-0 Yes 500 mg = 1 M emoria 500 mg oral 1-07 cap, PO, l capsule 16:17: BID, 0 [place] 00 Refill(s) cephalexin 2015-0 Yes 500 mg = 1 M emoria 500 mg oral 1-07 cap, PO, l capsule 16:17: BID, 0 [place] 00 Refill(s) cephalexin 2016-0 Yes 500 mg = 1 M emoria 500 mg oral 1-07 cap, PO, l capsule 16:17: BID, 0 [place] 00 Refill(s) cephalexin 2016-0 Yes 500 mg = 1 M emoria 500 mg oral 1-07 cap, PO, l capsule 16:17: BID, 0 [place] 00 Refill(s) cephalexin 2016-0 Yes 500 mg [...] cap, PO, l capsule 16:17: BID, 0 [place] 00 Refill(s) cephalexin 2016-0 Yes 500 mg = 1 M emoria 500 mg oral 1-07 cap, PO, l capsule 16:17: BID, 0 [place] 00 Refill(s) cephalexin 2016-0 Yes 500 mg = 1 M emoria 500 mg oral 1-07 cap, PO, l capsule 16:17: BID, 0 [place] 00 Refill(s) cephalexin 2016-0 Yes 500 mg = 1 M emoria 500 mg oral 1-07 cap, PO, l capsule 16:17: BID, 0 [place] 00 Refill(s) cephalexin 2016-0 Yes 500 mg = 1 M emoria 500 mg oral 1-07 cap, PO, l capsule 16:17: BID, 0 [place] 00 Refill(s) cephalexin 2016-0 Yes 500 mg [...] cap, PO, l capsule 16:17: BID, 0 [place] 00 Refill(s) cephalexin 2016-0 Yes 500 mg [...] cap, PO, l capsule 16:17: BID, 0 [place] 00 Refill(s) cephalexin 2016-0 Yes 500 mg = 1 M emoria 500 mg oral 1-07 cap, PO, l capsule 16:17: BID, 0 [place] 00 Refill(s) cephalexin 2016-0 Yes 500 mg = 1 M emoria 500 mg oral 1-07 cap, PO, l capsule 16:17: BID, 0 [place] 00 Refill(s) cephalexin 2016-0 Yes 500 mg [...] cap, PO, l capsule 16:17: BID, 0 [place] 00 Refill(s) cephalexin 2016-0 Yes 500 mg = 1 M emoria 500 mg oral 1-07 cap, PO, l capsule 16:17: BID, 0 [place] 00 Refill(s) cephalexin 2016-0 Yes 500 mg = 1 M emoria 500 mg oral 1-07 cap, PO, l capsule 16:17: BID, 0 [place] 00 Refill(s) cephalexin 2016-0 Yes 500 mg = 1 M emoria 500 mg oral 1-07 cap, PO, l capsule 16:17: BID, 0 [place] 00 Refill(s) cephalexin 2016-0 Yes 500 mg [...] cap, PO, l capsule 16:17: BID, 0 [place] 00 Refill(s) cephalexin 2016-0 Yes 500 mg = 1 M emoria 500 mg oral 1-07 cap, PO, l capsule 16:17: BID, 0 [place] 00 Refill(s) cephalexin 2016-0 Yes 500 mg = 1 M emoria 500 mg oral 1-07 cap, PO, l capsule 16:17: BID, 0 [place] 00 Refill(s) cephalexin 2016-0 Yes 500 mg = 1 M emoria 500 mg oral 1-07 cap, PO, l capsule 16:17: BID, 0 [place] 00 Refill(s) cephalexin 2016-0 Yes 500 mg = 1 M emoria 500 mg oral 1-07 cap, PO, l capsule 16:17: BID, 0 [place] 00 Refill(s) cephalexin 2016-0 Yes 500 mg = 1 M emoria 500 mg oral 1-07 cap, PO, l capsule 16:17: BID, 0 [place] 00 Refill(s) cephalexin 2016-0 Yes 500 mg = 1 M emoria 500 mg oral 1-07 cap, PO, l capsule 16:17: BID, 0 [place] 00 Refill(s) cephalexin 2016-0 Yes 500 mg = 1 M emoria 500 mg oral 1-07 cap, PO, l capsule 16:17: BID, 0 [place] 00 Refill(s) cephalexin 2016-0 Yes 500 mg = 1 M emoria 500 mg oral 1-07 cap, PO, l capsule 16:17: BID, 0 [place] 00 Refill(s) cephalexin 2016-0 Yes 500 mg = 1 M emoria 500 mg oral 1-07 cap, PO, l capsule 16:17: BID, 0 [place] 00 Refill(s) cephalexin 2016-0 Yes 500 mg = 1 M emoria 500 mg oral 1-07 cap, PO, l capsule 16:17: BID, 0 [place] 00 Refill(s) cephalexin 2016-0 Yes 500 mg = 1 M emoria 500 mg oral 1-07 cap, PO, l capsule 16:17: BID, 0 [place] 00 Refill(s) cephalexin 2016-0 Yes 500 mg = 1 M emoria 500 mg oral 1-07 cap, PO, l capsule 16:17: BID, 0 [place] 00 Refill(s) cephalexin 2015-0 Yes 500 mg = 1 M emoria 500 mg oral 1-07 cap, PO, l capsule 16:17: BID, 0 [place] 00 Refill(s) cephalexin 2016-0 Yes 500 mg = 1 M emoria 500 mg oral 1-07 cap, PO, l capsule 16:17: BID, 0 [place] 00 Refill(s) cephalexin 2016-0 Yes 500 mg = 1 M emoria 500 mg oral 1-07 cap, PO, l capsule 16:17: BID, 0 [place] 00 Refill(s) cephalexin 2016-0 Yes 500 mg = 1 M emoria 500 mg oral 1-07 cap, PO, l capsule 16:17: BID, 0 [place] 00 Refill(s) cephalexin 2016-0 Yes 500 mg = 1 M emoria 500 mg oral 1-07 cap, PO, l capsule 16:17: BID, 0 [place] 00 Refill(s) cephalexin 2016-0 Yes 500 mg = 1 M emoria 500 mg oral 1-07 cap, PO, l capsule 16:17: BID, 0 [place] 00 Refill(s) cephalexin 2016-0 Yes 500 mg [...] cap, PO, l capsule 16:17: BID, 0 [place] 00 Refill(s) cephalexin 2016-0 Yes 500 mg = 1 M emoria 500 mg oral 1-07 cap, PO, l capsule 16:17: BID, 0 [place] 00 Refill(s) cephalexin 2015-0 Yes 500 mg = 1 M emoria 500 mg oral 1-07 cap, PO, l capsule 16:17: BID, 0 [place] 00 Refill(s) duloxetine Yes 60 mg = 1 Me moria 60 MG 1-07 cap, PO, l Enteric 16:16: Daily, 0 [place] n Coated 00 Refill(s) Capsule [Cymbalta] atorvastati Yes 40 mg = 1 M emoria n 40 MG 1-07 tab, PO, l Oral Tablet 16:16: Bedtime, 0 [place] [Lipitor] 00 Refill(s) duloxetine Yes 60 mg = 1 Me moria 60 MG 1-07 cap, PO, l Enteric 16:16: Daily, 0 [place] n Coated 00 Refill(s) Capsule [Cymbalta] atorvastati Yes 40 mg = 1 M emoria n 40 MG 1-07 tab, PO, l Oral Tablet 16:16: Bedtime, 0 [place] [Lipitor] 00 Refill(s) duloxetine 0 Yes 60 mg = 1 Me moria 60 MG 1-07 cap, PO, l Enteric 16:16: Daily, 0 [place] n Coated 00 Refill(s) Capsule [Cymbalta] atorvastati Yes 40 mg = 1 M emoria n 40 MG 1-07 tab, PO, l Oral Tablet 16:16: Bedtime, 0 [place] [Lipitor] 00 Refill(s) duloxetine 0 Yes 60 mg = 1 Me moria [...] PO, l Oral Tablet 16:16: Bedtime, 0 [place] [Lipitor] 00 Refill(s) duloxetine Yes 60 mg [...] PO, l Oral Tablet 16:16: Bedtime, 0 [place] [Lipitor] 00 Refill(s) duloxetine 2016 Yes 60 [...] PO, l Oral Tablet 16:16: Bedtime, 0 [place] [Lipitor] 00 Refill(s) duloxetine Yes 60 mg [...] PO, l Oral Tablet 16:16: Bedtime, 0 [place] [Lipitor] 00 Refill(s) duloxetine Yes 60 mg = 1 Me moria 60 MG 1-07 cap, PO, l Enteric 16:16: Daily, 0 [place] n Coated 00 Refill(s) Capsule [Cymbalta] atorvastati Yes 40 mg = 1 M emoria n 40 MG 1-07 tab, PO, l Oral Tablet 16:16: Bedtime, 0 [place] [Lipitor] 00 Refill(s) duloxetine Yes 60 mg = 1 Me moria 60 MG 1-07 cap, PO, l Enteric 16:16: Daily, 0 [place] n Coated 00 Refill(s) Capsule [Cymbalta] atorvastati Yes 40 mg = 1 M emoria n 40 MG 1-07 tab, PO, l Oral Tablet 16:16: Bedtime, 0 [place] [Lipitor] 00 Refill(s) duloxetine Yes 60 mg = 1 Me moria 60 MG 1-07 cap, PO, l Enteric 16:16: Daily, 0 [place] n Coated 00 Refill(s) Capsule [Cymbalta] atorvastati Yes 40 mg = 1 M emoria n 40 MG 1-07 tab, PO, l Oral Tablet 16:16: Bedtime, 0 [place] [Lipitor] 00 Refill(s) duloxetine Yes 60 mg [...] PO, l Oral Tablet 16:16: Bedtime, 0 [place] [Lipitor] 00 Refill(s) duloxetine Yes 60 mg = 1 Me moria 60 MG 1-07 cap, PO, l Enteric 16:16: Daily, 0 [place] n Coated 00 Refill(s) Capsule [Cymbalta] atorvastati Yes 40 mg = 1 M emoria n 40 MG 1-07 tab, PO, l Oral Tablet 16:16: Bedtime, 0 [place] [Lipitor] 00 Refill(s) duloxetine Yes 60 mg = 1 Me moria 60 MG 1-07 cap, PO, l Enteric 16:16: Daily, 0 [place] n Coated 00 Refill(s) Capsule [Cymbalta] atorvastati Yes 40 mg = 1 M emoria n 40 MG 1-07 tab, PO, l Oral Tablet 16:16: Bedtime, 0 [place] [Lipitor] 00 Refill(s) duloxetine Yes 60 mg [...] PO, l Oral Tablet 16:16: Bedtime, 0 [place] [Lipitor] 00 Refill(s) duloxetine Yes 60 mg = 1 Me moria 60 MG 1-07 cap, PO, l Enteric 16:16: Daily, 0 [place] n Coated 00 Refill(s) Capsule [Cymbalta] atorvastati Yes 40 mg = 1 M emoria n 40 MG 1-07 tab, PO, l Oral Tablet 16:16: Bedtime, 0 [place] [Lipitor] 00 Refill(s) duloxetine Yes 60 mg [...] PO, l Oral Tablet 16:16: Bedtime, 0 [place] [Lipitor] 00 Refill(s) duloxetine Yes 60 mg = 1 Me moria 60 MG 1-07 cap, PO, l Enteric 16:16: Daily, 0 [place] n Coated 00 Refill(s) Capsule [Cymbalta] atorvastati Yes 40 mg = 1 M emoria n 40 MG 1-07 tab, PO, l Oral Tablet 16:16: Bedtime, 0 [place] [Lipitor] 00 Refill(s) duloxetine Yes 60 mg = 1 Me moria 60 MG 1-07 cap, PO, l Enteric 16:16: Daily, 0 [place] n Coated 00 Refill(s) Capsule [Cymbalta] atorvastati Yes 40 mg = 1 M emoria n 40 MG 1-07 tab, PO, l Oral Tablet 16:16: Bedtime, 0 [place] [Lipitor] 00 Refill(s) duloxetine Yes 60 mg = 1 Me moria 60 MG 1-07 cap, PO, l Enteric 16:16: Daily, 0 [place] n Coated 00 Refill(s) Capsule [Cymbalta] atorvastati Yes 40 mg = 1 M emoria n 40 MG 1-07 tab, PO, l Oral Tablet 16:16: Bedtime, 0 [place] [Lipitor] 00 Refill(s) duloxetine Yes 60 mg [...] PO, l Oral Tablet 16:16: Bedtime, 0 [place] [Lipitor] 00 Refill(s) duloxetine Yes 60 mg [...] PO, l Oral Tablet 16:16: Bedtime, 0 [place] [Lipitor] 00 Refill(s) duloxetine Yes 60 mg = 1 Me moria 60 MG 1-07 cap, PO, l Enteric 16:16: Daily, 0 [place] n Coated 00 Refill(s) Capsule [Cymbalta] atorvastati Yes 40 mg = 1 M emoria n 40 MG 1-07 tab, PO, l Oral Tablet 16:16: Bedtime, 0 [place] [Lipitor] 00 Refill(s) duloxetine Yes 60 mg [...] PO, l Oral Tablet 16:16: Bedtime, 0 [place] [Lipitor] 00 Refill(s) duloxetine Yes 60 mg = 1 Me moria 60 MG 1-07 cap, PO, l Enteric 16:16: Daily, 0 [place] n Coated 00 Refill(s) Capsule [Cymbalta] atorvastati Yes 40 mg = 1 M emoria n 40 MG 1-07 tab, PO, l Oral Tablet 16:16: Bedtime, 0 [place] [Lipitor] 00 Refill(s) duloxetine Yes 60 mg [...] PO, l Oral Tablet 16:16: Bedtime, 0 [place] [Lipitor] 00 Refill(s) duloxetine Yes 60 mg [...] PO, l Oral Tablet 16:16: Bedtime, 0 [place] [Lipitor] 00 Refill(s) duloxetine Yes 60 mg = 1 Me moria 60 MG 1-07 cap, PO, l Enteric 16:16: Daily, 0 [place] n Coated 00 Refill(s) Capsule [Cymbalta] atorvastati Yes 40 mg = 1 M emoria n 40 MG 1-07 tab, PO, l Oral Tablet 16:16: Bedtime, 0 [place] [Lipitor] 00 Refill(s) duloxetine Yes 60 mg = 1 Me moria 60 MG 1-07 cap, PO, l Enteric 16:16: Daily, 0 [place] n Coated 00 Refill(s) Capsule [Cymbalta] atorvastati Yes 40 mg = 1 M emoria n 40 MG 1-07 tab, PO, l Oral Tablet 16:16: Bedtime, 0 [place] [Lipitor] 00 Refill(s) duloxetine Yes 60 mg = 1 Me moria 60 MG 1-07 cap, PO, l Enteric 16:16: Daily, 0 [place] n Coated 00 Refill(s) Capsule [Cymbalta] atorvastati Yes 40 mg = 1 M emoria n 40 MG 1-07 tab, PO, l Oral Tablet 16:16: Bedtime, 0 [place] [Lipitor] 00 Refill(s) duloxetine Yes 60 mg [...] PO, l Oral Tablet 16:16: Bedtime, 0 [place] [Lipitor] 00 Refill(s) duloxetine Yes 60 mg = 1 Me moria 60 MG 1-07 cap, PO, l Enteric 16:16: Daily, 0 [place] n Coated 00 Refill(s) Capsule [Cymbalta] atorvastati Yes 40 mg = 1 M emoria n 40 MG 1-07 tab, PO, l Oral Tablet 16:16: Bedtime, 0 [place] [Lipitor] 00 Refill(s) duloxetine Yes 60 mg = 1 Me moria 60 MG 1-07 cap, PO, l Enteric 16:16: Daily, 0 [place] n Coated 00 Refill(s) Capsule [Cymbalta] atorvastati Yes 40 mg = 1 M emoria n 40 MG 1-07 tab, PO, l Oral Tablet 16:16: Bedtime, 0 [place] [Lipitor] 00 Refill(s) duloxetine Yes 60 mg = 1 Me moria 60 MG 1-07 cap, PO, l Enteric 16:16: Daily, 0 [place] n Coated 00 Refill(s) Capsule [Cymbalta] atorvastati Yes 40 mg = 1 M emoria n 40 MG 1-07 tab, PO, l Oral Tablet 16:16: Bedtime, 0 [place] [Lipitor] 00 Refill(s) duloxetine Yes 60 mg = 1 Me moria 60 MG 1-07 cap, PO, l Enteric 16:16: Daily, 0 [place] n Coated 00 Refill(s) Capsule [Cymbalta] atorvastati Yes 40 mg = 1 M emoria n 40 MG 1-07 tab, PO, l Oral Tablet 16:16: Bedtime, 0 [place] [Lipitor] 00 Refill(s) duloxetine Yes 60 mg = 1 Me moria 60 MG 1-07 cap, PO, l Enteric 16:16: Daily, 0 [place] n Coated 00 Refill(s) Capsule [Cymbalta] atorvastati Yes 40 mg = 1 M emoria n 40 MG 1-07 tab, PO, l Oral Tablet 16:16: Bedtime, 0 [place] [Lipitor] 00 Refill(s) duloxetine Yes 60 mg [...] PO, l Oral Tablet 16:16: Bedtime, 0 [place] [Lipitor] 00 Refill(s) duloxetine Yes 60 mg = 1 Me moria 60 MG 1-07 cap, PO, l Enteric 16:16: Daily, 0 [place] n Coated 00 Refill(s) Capsule [Cymbalta] atorvastati Yes 40 mg = 1 M emoria n 40 MG 1-07 tab, PO, l Oral Tablet 16:16: Bedtime, 0 [place] [Lipitor] 00 Refill(s) duloxetine Yes 60 mg = 1 Me moria 60 MG 1-07 cap, PO, l Enteric 16:16: Daily, 0 [place] n Coated 00 Refill(s) Capsule [Cymbalta] atorvastati Yes 40 mg = 1 M emoria n 40 MG 1-07 tab, PO, l Oral Tablet 16:16: Bedtime, 0 [place] [Lipitor] 00 Refill(s) duloxetine Yes 60 mg = 1 Me moria 60 MG 1-07 cap, PO, l Enteric 16:16: Daily, 0 [place] n Coated 00 Refill(s) Capsule [Cymbalta] atorvastati Yes 40 mg = 1 M emoria n 40 MG 1-07 tab, PO, l Oral Tablet 16:16: Bedtime, 0 [place] [Lipitor] 00 Refill(s) duloxetine Yes 60 mg = 1 Me moria 60 MG 1-07 cap, PO, l Enteric 16:16: Daily, 0 [place] n Coated 00 Refill(s) Capsule [Cymbalta] atorvastati Yes 40 mg = 1 M emoria n 40 MG 1-07 tab, PO, l Oral Tablet 16:16: Bedtime, 0 [place] [Lipitor] 00 Refill(s) duloxetine Yes 60 mg = 1 Me moria 60 MG 1-07 cap, PO, l Enteric 16:16: Daily, 0 [place] n Coated 00 Refill(s) Capsule [Cymbalta] atorvastati Yes 40 mg = 1 M emoria n 40 MG 1-07 tab, PO, l Oral Tablet 16:16: Bedtime, 0 [place] [Lipitor] 00 Refill(s) duloxetine Yes 60 mg = 1 Me moria 60 MG 1-07 cap, PO, l Enteric 16:16: Daily, 0 [place] n Coated 00 Refill(s) Capsule [Cymbalta] atorvastati Yes 40 mg = 1 M emoria n 40 MG 1-07 tab, PO, l Oral Tablet 16:16: Bedtime, 0 [place] [Lipitor] 00 Refill(s) duloxetine Yes 60 mg = 1 Me moria 60 MG 1-07 cap, PO, l Enteric 16:16: Daily, 0 [place] n Coated 00 Refill(s) Capsule [Cymbalta] atorvastati Yes 40 mg = 1 M emoria n 40 MG 1-07 tab, PO, l Oral Tablet 16:16: Bedtime, 0 [place] [Lipitor] 00 Refill(s) duloxetine Yes 60 mg = 1 Me moria 60 MG 1-07 cap, PO, l Enteric 16:16: Daily, 0 [place] n Coated 00 Refill(s) Capsule [Cymbalta] atorvastati Yes 40 mg = 1 M emoria n 40 MG 1-07 tab, PO, l Oral Tablet 16:16: Bedtime, 0 [place] [Lipitor] 00 Refill(s) duloxetine Yes 60 mg [...] cap, PO, l Enteric 16:16: Daily, 0 [place] n Coated 00 Refill(s) Capsule [Cymbalta] atorvastati [...] PO, l Oral Tablet 16:16: Bedtime, 0 [place] [Lipitor] 00 Refill(s) duloxetine Yes 60 mg = 1 Me moria 60 MG 1-07 cap, PO, l Enteric 16:16: Daily, 0 [place] n Coated 00 Refill(s) Capsule [Cymbalta] atorvastati Yes 40 mg = 1 M emoria n 40 MG 1-07 tab, PO, l Oral Tablet 16:16: Bedtime, 0 [place] [Lipitor] 00 Refill(s) duloxetine 2016 Yes 60 [...] PO, l Oral Tablet 16:16: Bedtime, 0 [place] [Lipitor] 00 Refill(s) promethazin Yes 25 mg [...] 16:15: PRN, 0 Herm flakita 00 Refill(s) promethazin 2016-0 Yes 25 mg = 1 M emoria e 25 mg 1-07 tab, PO, l oral tablet 16:15: PRN, 0 [facility] flakita 00 Refill(s) sucralfate 2015-0 Yes 1 gm = 1 Mem oria 1 g oral 1-07 tab, PO, l tablet 16:15: QID-Before [place] nn Meals, 0 Refill(s) sucralfate 2015-0 Yes 1 gm = [...] = 1 Mem oria 1 g oral 07 tab, PO, l tablet 16:15: QID-Before [place] [...] tab, PO, l Tablet 16:14: PRN, 0 [place] [Colcrys] 00 Refill(s) Colchicine Yes 0.6 mg = 1 M emoria 0.6 MG Oral 07 tab, PO, l Tablet 16:14: PRN, 0 [place] [Colcrys] 00 Refill(s) Colchicine 0 Yes 0.6 mg = 1 M emoria 0.6 MG Oral 07 tab, PO, l Tablet 16:14: PRN, 0 [place] [Colcrys] 00 Refill(s) Colchicine 0 Yes 0.6 mg = 1 M emoria 0.6 MG Oral -07 tab, PO, l Tablet 16:14: PRN, 0 [place] [Colcrys] 00 Refill(s) Colchicine 0 Yes 0.6 [...] tab, PO, l Tablet 16:14: PRN, 0 [place] [Colcrys] 00 Refill(s) Colchicine 2016-0 Yes 0.6 [...] tab, PO, l Tablet 16:14: PRN, 0 [place] [Colcrys] 00 Refill(s) Colchicine 2016-0 Yes 0.6 mg = 1 M emoria 0.6 MG Oral 1-07 tab, PO, l Tablet 16:14: PRN, 0 [place] [Colcrys] 00 Refill(s) Colchicine 2016-0 Yes 0.6 mg = 1 M emoria 0.6 MG Oral 1-07 tab, PO, l Tablet 16:14: PRN, 0 [place] [Colcrys] 00 Refill(s) Colchicine 2016-0 Yes 0.6 mg = 1 M emoria 0.6 MG Oral 1-07 tab, PO, l Tablet 16:14: PRN, 0 [place] [Colcrys] 00 Refill(s) Colchicine 2016-0 Yes 0.6 mg = 1 M emoria 0.6 MG Oral 1-07 tab, PO, l Tablet 16:14: PRN, 0 [place] [Colcrys] 00 Refill(s) Colchicine 2016-0 Yes 0.6 mg = 1 M emoria 0.6 MG Oral 1-07 tab, PO, l Tablet 16:14: PRN, 0 [place] [Colcrys] 00 Refill(s) Colchicine 2016-0 Yes 0.6 mg = 1 M emoria 0.6 MG Oral 1-07 tab, PO, l Tablet 16:14: PRN, 0 [place] [Colcrys] 00 Refill(s) Colchicine 2016-0 Yes 0.6 mg = 1 M emoria 0.6 MG Oral 1-07 tab, PO, l Tablet 16:14: PRN, 0 [place] [Colcrys] 00 Refill(s) Colchicine 2016-0 Yes 0.6 mg = 1 M emoria 0.6 MG Oral 1-07 tab, PO, l Tablet 16:14: PRN, 0 [place] [Colcrys] 00 Refill(s) Colchicine 2016-0 Yes 0.6 mg = 1 M emoria 0.6 MG Oral 1-07 tab, PO, l Tablet 16:14: PRN, 0 [place] [Colcrys] 00 Refill(s) Colchicine 2016-0 Yes 0.6 mg = 1 M emoria 0.6 MG Oral 1-07 tab, PO, l Tablet 16:14: PRN, 0 [place] [Colcrys] 00 Refill(s) Colchicine 2016-0 Yes 0.6 mg = 1 M emoria 0.6 MG Oral 1-07 tab, PO, l Tablet 16:14: PRN, 0 [place] [Colcrys] 00 Refill(s) Colchicine 2016-0 Yes 0.6 mg = 1 M emoria 0.6 MG Oral 1-07 tab, PO, l Tablet 16:14: PRN, 0 [place] [Colcrys] 00 Refill(s) Colchicine 2016-0 Yes 0.6 mg = 1 M emoria 0.6 MG Oral 1-07 tab, PO, l Tablet 16:14: PRN, 0 [place] [Colcrys] 00 Refill(s) Colchicine 2016-0 Yes 0.6 mg = 1 M emoria 0.6 MG Oral 1-07 tab, PO, l Tablet 16:14: PRN, 0 [place] [Colcrys] 00 Refill(s) Colchicine 2016-0 Yes 0.6 mg = 1 M emoria 0.6 MG Oral 1-07 tab, PO, l Tablet 16:14: PRN, 0 [place] [Colcrys] 00 Refill(s) Colchicine 2016-0 Yes 0.6 mg = 1 M emoria 0.6 MG Oral 1-07 tab, PO, l Tablet 16:14: PRN, 0 [place] [Colcrys] 00 Refill(s) Colchicine 2016-0 Yes 0.6 [...] tab, PO, l Tablet 16:14: PRN, 0 [place] [Colcrys] 00 Refill(s) Colchicine 2016-0 Yes 0.6 mg = 1 M emoria 0.6 MG Oral 1-07 tab, PO, l Tablet 16:14: PRN, 0 [place] [Colcrys] 00 Refill(s) Colchicine 2016-0 Yes 0.6 mg = 1 M emoria 0.6 MG Oral 1-07 tab, PO, l Tablet 16:14: PRN, 0 [place] [Colcrys] 00 Refill(s) Colchicine 2016-0 Yes 0.6 mg = 1 M emoria 0.6 MG Oral 1-07 tab, PO, l Tablet 16:14: PRN, 0 [place] [Colcrys] 00 Refill(s) Colchicine 2016-0 Yes 0.6 mg = 1 M emoria 0.6 MG Oral 1-07 tab, PO, l Tablet 16:14: PRN, 0 [place] [Colcrys] 00 Refill(s) Colchicine 2016-0 Yes 0.6 [...] tab, PO, l Tablet 16:14: PRN, 0 [place] [Colcrys] 00 Refill(s) Colchicine 2016-0 Yes 0.6 [...] tab, PO, l Tablet 16:14: PRN, 0 [place] [Colcrys] 00 Refill(s) Colchicine 2016-0 Yes 0.6 mg = 1 M emoria 0.6 MG Oral 1-07 tab, PO, l Tablet 16:14: PRN, 0 [place] [Colcrys] 00 Refill(s) Colchicine 2016-0 Yes 0.6 mg = 1 M emoria 0.6 MG Oral 1-07 tab, PO, l Tablet 16:14: PRN, 0 [place] [Colcrys] 00 Refill(s) Colchicine 2016-0 Yes 0.6 mg = 1 M emoria 0.6 MG Oral 1-07 tab, PO, l Tablet 16:14: PRN, 0 [place] [Colcrys] 00 Refill(s) Colchicine 2016-0 Yes 0.6 mg = 1 M emoria 0.6 MG Oral 1-07 tab, PO, l Tablet 16:14: PRN, 0 [place] [Colcrys] 00 Refill(s) Colchicine 2016-0 Yes 0.6 mg = 1 M emoria 0.6 MG Oral 1-07 tab, PO, l Tablet 16:14: PRN, 0 [place] [Colcrys] 00 Refill(s) Colchicine 2016-0 Yes 0.6 mg = 1 M emoria 0.6 MG Oral 1-07 tab, PO, l Tablet 16:14: PRN, 0 [place] [Colcrys] 00 Refill(s) Colchicine 2016-0 Yes 0.6 mg = 1 M emoria 0.6 MG Oral 1-07 tab, PO, l Tablet 16:14: PRN, 0 [place] [Colcrys] 00 Refill(s) Colchicine 2016-0 Yes 0.6 mg = 1 M emoria 0.6 MG Oral 1-07 tab, PO, l Tablet 16:14: PRN, 0 [place] [Colcrys] 00 Refill(s) Colchicine 2016-0 Yes 0.6 mg = 1 M emoria 0.6 MG Oral 1-07 tab, PO, l Tablet 16:14: PRN, 0 [place] [Colcrys] 00 Refill(s) Colchicine 2016-0 Yes 0.6 mg = 1 M emoria 0.6 MG Oral 1-07 tab, PO, l Tablet 16:14: PRN, 0 [place] [Colcrys] 00 Refill(s) Colchicine 2016-0 Yes 0.6 [...] tab, PO, l Tablet 16:14: PRN, 0 [place] [Colcrys] 00 Refill(s) Colchicine 2016-0 Yes 0.6 mg = 1 M emoria 0.6 MG Oral 1-07 tab, PO, l Tablet 16:14: PRN, 0 [place] [Colcrys] 00 Refill(s) Colchicine 2016-0 Yes 0.6 mg = 1 M emoria 0.6 MG Oral 1-07 tab, PO, l Tablet 16:14: PRN, 0 [place] [Colcrys] 00 Refill(s) Colchicine 2016-0 Yes 0.6 [...] tab, PO, l Tablet 16:14: PRN, 0 [place] [Colcrys] 00 Refill(s) Colchicine 2016-0 Yes 0.6 mg = 1 M emoria 0.6 MG Oral 1-07 tab, PO, l Tablet 16:14: PRN, 0 [place] [Colcrys] 00 Refill(s) Colchicine 2016-0 Yes 0.6 mg = 1 M emoria 0.6 MG Oral 1-07 tab, PO, l Tablet 16:14: PRN, 0 [place] [Colcrys] 00 Refill(s) Colchicine 2016-0 Yes 0.6 mg = 1 M emoria 0.6 MG Oral 1-07 tab, PO, l Tablet 16:14: PRN, 0 [place] [Colcrys] 00 Refill(s) Colchicine 2016-0 Yes 0.6 mg = 1 M emoria 0.6 MG Oral 1-07 tab, PO, l Tablet 16:14: PRN, 0 [place] [Colcrys] 00 Refill(s) Colchicine 2016-0 Yes 0.6 mg = 1 M emoria 0.6 MG Oral 1-07 tab, PO, l Tablet 16:14: PRN, 0 [place] [Colcrys] 00 Refill(s) Colchicine 2016-0 Yes 0.6 mg = 1 M emoria 0.6 MG Oral 1-07 tab, PO, l Tablet 16:14: PRN, 0 [place] [Colcrys] 00 Refill(s) Colchicine 2016-0 Yes 0.6 mg = 1 M emoria 0.6 MG Oral 1-07 tab, PO, l Tablet 16:14: PRN, 0 [place] [Colcrys] 00 Refill(s) Colchicine 2016-0 Yes 0.6 mg = 1 M emoria 0.6 MG Oral 1-07 tab, PO, l Tablet 16:14: PRN, 0 [place] [Colcrys] 00 Refill(s) allopurinol 2016- Yes 300 mg = 1 [facility] 300 mg oral 1-07 tab, PO, l tablet 16:13: Daily, 0 [place] 00 Refill(s) allopurinol 2016-0 Yes 300 mg = 1 [facility] 300 mg oral 1-07 tab, PO, l tablet 16:13: Daily, 0 [place] 00 Refill(s) allopurinol 2016-0 Yes 300 mg = 1 [facility] 300 mg oral 1-07 tab, PO, l tablet 16:13: Daily, 0 [place] 00 Refill(s) allopurinol 2016-0 Yes 300 mg = 1 [facility] 300 mg oral 1-07 tab, PO, l tablet 16:13: Daily, 0 [place] 00 Refill(s) allopurinol 2016-0 Yes 300 mg = 1 [facility] 300 mg oral 1-07 tab, PO, l tablet 16:13: Daily, 0 [place] 00 Refill(s) allopurinol Yes 300 mg = 1 [facility] 300 mg oral 1-07 tab, PO, l tablet 16:13: Daily, 0 [place] 00 Refill(s) allopurinol Yes 300 mg = 1 [facility] 300 mg oral 1-07 tab, PO, l tablet 16:13: Daily, 0 [place] 00 Refill(s) allopurinol Yes 300 mg = 1 [facility] 300 mg oral 1-07 tab, PO, l tablet 16:13: Daily, 0 [place] 00 Refill(s) allopurinol Yes 300 mg = 1 [facility] 300 mg oral 1-07 tab, PO, l tablet 16:13: Daily, 0 [place] 00 Refill(s) allopurinol Yes 300 mg = 1 [facility] 300 mg oral 1-07 tab, PO, l tablet 16:13: Daily, 0 [place] 00 Refill(s) allopurinol Yes 300 mg = 1 [facility] 300 mg oral 1-07 tab, PO, l tablet 16:13: Daily, 0 [place] 00 Refill(s) allopurinol Yes 300 mg = 1 [facility] 300 mg oral 1-07 tab, PO, l tablet 16:13: Daily, 0 [place] 00 Refill(s) allopurinol Yes 300 mg = 1 [facility] 300 mg oral 1-07 tab, PO, l tablet 16:13: Daily, 0 [place] 00 Refill(s) allopurinol Yes 300 mg = 1 [facility] 300 mg oral 1-07 tab, PO, l tablet 16:13: Daily, 0 [place] 00 Refill(s) allopurinol 0 Yes 300 mg = 1 [facility] 300 mg oral 1-07 tab, PO, l tablet 16:13: Daily, 0 [place] 00 Refill(s) allopurinol 0 Yes 300 mg = 1 [facility] 300 mg oral 1-07 tab, PO, l tablet 16:13: Daily, 0 [place] 00 Refill(s) allopurinol Yes 300 mg = 1 [facility] 300 mg oral 1-07 tab, PO, l tablet 16:13: Daily, 0 [place] 00 Refill(s) allopurinol 0 Yes 300 mg = 1 [facility] 300 mg oral 1-07 tab, PO, l tablet 16:13: Daily, 0 [place] 00 Refill(s) allopurinol Yes 300 mg = 1 [facility] 300 mg oral 1-07 tab, PO, l tablet 16:13: Daily, 0 [place] 00 Refill(s) allopurinol Yes 300 mg = 1 [facility] 300 mg oral 1-07 tab, PO, l tablet 16:13: Daily, 0 [place] 00 Refill(s) allopurinol Yes 300 mg = 1 [facility] 300 mg oral 1-07 tab, PO, l tablet 16:13: Daily, 0 [place] 00 Refill(s) allopurinol Yes 300 mg = 1 [facility] 300 mg oral 1-07 tab, PO, l tablet 16:13: Daily, 0 [place] 00 Refill(s) allopurinol Yes 300 mg = 1 [facility] 300 mg oral 1-07 tab, PO, l tablet 16:13: Daily, 0 [place] 00 Refill(s) allopurinol Yes 300 mg = 1 [facility] 300 mg oral 1-07 tab, PO, l tablet 16:13: Daily, 0 [place] 00 Refill(s) allopurinol Yes 300 mg = 1 [facility] 300 mg oral 1-07 tab, PO, l tablet 16:13: Daily, 0 [place] 00 Refill(s) allopurinol Yes 300 mg = 1 [facility] 300 mg oral 1-07 tab, PO, l tablet 16:13: Daily, 0 [place] 00 Refill(s) allopurinol Yes 300 mg = 1 [facility] 300 mg oral 1-07 tab, PO, l tablet 16:13: Daily, 0 [place] 00 Refill(s) allopurinol Yes 300 mg = 1 [facility] 300 mg oral 1-07 tab, PO, l tablet 16:13: Daily, 0 [place] 00 Refill(s) allopurinol Yes 300 mg = 1 [facility] 300 mg oral 1-07 tab, PO, l tablet 16:13: Daily, 0 [place] 00 Refill(s) allopurinol Yes 300 mg = 1 [facility] 300 mg oral 1-07 tab, PO, l tablet 16:13: Daily, 0 [place] 00 Refill(s) allopurinol Yes 300 mg = [...] tab, PO, l tablet 16:13: Daily, 0 [place] 00 Refill(s) allopurinol 0 Yes 300 mg = 1 [facility] 300 mg oral 1-07 tab, PO, l tablet 16:13: Daily, 0 [place] 00 Refill(s) allopurinol 0 Yes 300 mg [...] tab, PO, l tablet 16:13: Daily, 0 [place] 00 Refill(s) allopurinol Yes 300 mg = 1 [facility] 300 mg oral 1-07 tab, PO, l tablet 16:13: Daily, 0 [place] 00 Refill(s) allopurinol Yes 300 mg = 1 [facility] 300 mg oral 1-07 tab, PO, l tablet 16:13: Daily, 0 [place] 00 Refill(s) allopurinol Yes 300 mg = 1 [facility] 300 mg oral 1-07 tab, PO, l tablet 16:13: Daily, 0 [place] 00 Refill(s) allopurinol Yes 300 mg = 1 [facility] 300 mg oral 1-07 tab, PO, l tablet 16:13: Daily, 0 [place] 00 Refill(s) allopurinol Yes 300 mg = 1 [facility] 300 mg oral 1-07 tab, PO, l tablet 16:13: Daily, 0 [place] 00 Refill(s) allopurinol Yes 300 mg = 1 [facility] 300 mg oral 1-07 tab, PO, l tablet 16:13: Daily, 0 [place] 00 Refill(s) allopurinol Yes 300 mg = 1 [facility] 300 mg oral 1-07 tab, PO, l tablet 16:13: Daily, 0 [place] 00 Refill(s) allopurinol Yes 300 mg = 1 [facility] 300 mg oral 1-07 tab, PO, l tablet 16:13: Daily, 0 [place] 00 Refill(s) allopurinol Yes 300 mg = 1 [facility] 300 mg oral 1-07 tab, PO, l tablet 16:13: Daily, 0 [place] 00 Refill(s) allopurinol Yes 300 mg = 1 [facility] 300 mg oral 1-07 tab, PO, l tablet 16:13: Daily, 0 [place] 00 Refill(s) allopurinol Yes 300 mg = 1 [facility] 300 mg oral 1-07 tab, PO, l tablet 16:13: Daily, 0 [place] 00 Refill(s) allopurinol Yes 300 mg = 1 [facility] 300 mg oral 1-07 tab, PO, l tablet 16:13: Daily, 0 [place] 00 Refill(s) allopurinol Yes 300 mg = 1 [facility] 300 mg oral 1-07 tab, PO, l tablet 16:13: Daily, 0 [place] 00 Refill(s) allopurinol Yes 300 mg = 1 [facility] 300 mg oral 1-07 tab, PO, l tablet 16:13: Daily, 0 [place] 00 Refill(s) allopurinol Yes 300 mg = 1 [facility] 300 mg oral 1-07 tab, PO, l tablet 16:13: Daily, 0 [place] 00 Refill(s) allopurinol Yes 300 mg = 1 [facility] 300 mg oral 1-07 tab, PO, l tablet 16:13: Daily, 0 [place] 00 Refill(s) allopurinol Yes 300 mg = 1 [facility] 300 mg oral 1-07 tab, PO, l tablet 16:13: Daily, 0 [place] 00 Refill(s) allopurinol Yes 300 mg = 1 [facility] 300 mg oral 1-07 tab, PO, l tablet 16:13: Daily, 0 [place] 00 Refill(s) allopurinol Yes 300 mg = 1 [facility] 300 mg oral 1-07 tab, PO, l tablet 16:13: Daily, 0 [place] 00 Refill(s) allopurinol Yes 300 mg = 1 [facility] 300 mg oral 1-07 tab, PO, l tablet 16:13: Daily, 0 [place] 00 Refill(s) allopurinol Yes 300 mg = [...] tab, PO, l tablet 16:13: Daily, 0 [place] 00 Refill(s) allopurinol Yes 300 mg = 1 [facility] 300 mg oral 1-07 tab, PO, l tablet 16:13: Daily, 0 [place] 00 Refill(s) allopurinol 0 Yes 300 mg = 1 [facility] 300 mg oral 1-07 tab, PO, l tablet 16:13: Daily, 0 [place] 00 Refill(s) allopurinol Yes 300 mg = [...] tab, PO, l tablet 16:13: Daily, 0 [place] 00 Refill(s) allopurinol Yes 300 mg = 1 [facility] 300 mg oral 1-07 tab, PO, l tablet 16:13: Daily, 0 [place] 00 Refill(s) allopurinol Yes 300 mg = 1 [facility] 300 mg oral 1-07 tab, PO, l tablet 16:13: Daily, 0 [place] 00 Refill(s) Unknown Yes Refill(s) Memor ia [...] ia Home 1-07 0 l Medication 16:12: [place] Unknown 0 Yes Refill(s) Memor ia Home 1-07 0 l Medication 16:12: [place] Unknown 0 Yes Refill(s) Memor ia Home 1-07 0 l Medication 16:12: [place] Unknown Yes Refill(s) Memor ia Home 1-07 0 l Medication 16:12: [place] 00 Unknown Yes Refill(s) Memor ia Home [...] l de 50 MG 16:10: TID, 0 [place] Oral Tablet 00 Refill(s) Hydralazine Yes 50 mg = 1 M emoria Hydrochlori 1-07 tab, PO, l de 50 MG 16:10: TID, 0 [place] Oral Tablet 00 Refill(s) Hydralazine 0 Yes [...] l de 50 MG 16:10: TID, 0 [place] Oral Tablet 00 Refill(s) Hydralazine 0 Yes 50 mg = 1 M emoria Hydrochlori 07 tab, PO, l de 50 MG 16:10: TID, 0 [place] Oral Tablet 00 Refill(s) Hydralazine 0 Yes 50 mg = 1 M emoria Hydrochlori -07 tab, PO, l de 50 MG 16:10: TID, 0 [place] Oral Tablet 00 Refill(s) Hydralazine 0 Yes 50 mg = 1 M emoria Hydrochlori -07 tab, PO, l de 50 MG 16:10: TID, 0 [place] Oral Tablet 00 Refill(s) Hydralazine 0 Yes 50 mg = 1 M emoria Hydrochlori -07 tab, PO, l de 50 MG 16:10: TID, 0 [place] Oral Tablet 00 Refill(s) Hydralazine 0 Yes [...] l de 50 MG 16:10: TID, 0 [place] Oral Tablet 00 Refill(s) Hydralazine 0 Yes [...] l de 50 MG 16:10: TID, 0 [place] Oral Tablet 00 Refill(s) Hydralazine 0 Yes 50 mg = 1 M emoria Hydrochlori 07 tab, PO, l de 50 MG 16:10: TID, 0 [place] Oral Tablet 00 Refill(s) Hydralazine 0 Yes 50 mg = 1 M emoria Hydrochlori 07 tab, PO, l de 50 MG 16:10: TID, 0 [place] Oral Tablet 00 Refill(s) Hydralazine 0 Yes 50 mg = 1 M emoria Hydrochlori 07 tab, PO, l de 50 MG 16:10: TID, 0 [place] Oral Tablet 00 Refill(s) Hydralazine 0 Yes 50 mg = 1 M emoria Hydrochlori 07 tab, PO, l de 50 MG 16:10: TID, 0 [place] Oral Tablet 00 Refill(s) Hydralazine 0 Yes 50 mg = 1 M em[facility] Hydrochlori -07 tab, PO, l de 50 MG 16:10: TID, 0 [place] Oral Tablet 00 Refill(s) Hydralazine 0 Yes 50 mg = 1 M em[facility] Hydrochlori -07 tab, PO, l de 50 MG 16:10: TID, 0 [place] Oral Tablet 00 Refill(s) Hydralazine 2016-0 Yes [...] l de 50 MG 16:10: TID, 0 [place] Oral Tablet 00 Refill(s) Hydralazine 2015-0 Yes 50 mg = 1 M em[facility] Hydrochlori 11-07 tab, PO, l de 50 MG 16:10: TID, 0 [place] Oral Tablet 00 Refill(s) Hydralazine 0 Yes 50 mg = 1 M em[facility] Hydrochlori 11-07 tab, PO, l de 50 MG 16:10: TID, 0 [place] Oral Tablet 00 Refill(s) Hydralazine 2016-0 Yes 50 mg = 1 M em[facility] Hydrochlori 11-07 tab, PO, l de 50 MG 16:10: TID, 0 [place] Oral Tablet 00 Refill(s) Hydralazine 2016-0 Yes 50 mg = 1 M em[facility] Hydrochlori 11-07 tab, PO, l de 50 MG 16:10: TID, 0 [place] Oral Tablet 00 Refill(s) Hydralazine 2016-0 Yes 50 mg = 1 M em[facility] Hydrochlori 07 tab, PO, l de 50 MG 16:10: TID, 0 [place] Oral Tablet 00 Refill(s) Hydralazine 2016-0 Yes 50 mg = 1 M em[facility] Hydrochlori 07 tab, PO, l de 50 MG 16:10: TID, 0 [place] Oral Tablet 00 Refill(s) Hydralazine 2016-0 Yes [...] l de 50 MG 16:10: TID, 0 [place] Oral Tablet 00 Refill(s) Hydralazine 0 Yes 50 mg = 1 M em[facility] Hydrochlori -07 tab, PO, l de 50 MG 16:10: TID, 0 [place] Oral Tablet 00 Refill(s) Hydralazine 2015-0 Yes 50 mg = 1 M em[facility] Hydrochlori -07 tab, PO, l de 50 MG 16:10: TID, 0 [place] Oral Tablet 00 Refill(s) Hydralazine 0 Yes 50 mg = 1 M em[facility] Hydrochlori -07 tab, PO, l de 50 MG 16:10: TID, 0 [place] Oral Tablet 00 Refill(s) Hydralazine 0 Yes 50 mg = 1 M em[facility] Hydrochlori -07 tab, PO, l de 50 MG 16:10: TID, 0 [place] Oral Tablet 00 Refill(s) Hydralazine 0 Yes 50 mg = 1 M em[facility] Hydrochlori 11-07 tab, PO, l de 50 MG 16:10: TID, 0 [place] Oral Tablet 00 Refill(s) Hydralazine 0 Yes [...] l de 50 MG 16:10: TID, 0 [place] Oral Tablet 00 Refill(s) Hydralazine 0 Yes [...] l de 50 MG 16:10: TID, 0 [place] Oral Tablet 00 Refill(s) Hydralazine 0 Yes [...] l de 50 MG 16:10: TID, 0 [place] Oral Tablet 00 Refill(s) Hydralazine 0 Yes 50 mg = 1 M [facility] Hydrochlori 07 tab, PO, l de 50 MG 16:10: TID, 0 [place] Oral Tablet 00 Refill(s) Hydralazine 2015-0 Yes 50 mg = 1 M [facility] Hydrochlori 07 tab, PO, l de 50 MG 16:10: TID, 0 [place] Oral Tablet 00 Refill(s) Hydralazine 2015-0 Yes [...] l de 50 MG 16:10: TID, 0 [place] Oral Tablet 00 Refill(s) Hydralazine 0 Yes 50 mg = 1 M [facility] Hydrochlori 1-07 tab, PO, l de 50 MG 16:10: TID, 0 [place] Oral Tablet 00 Refill(s) Hydralazine 0 Yes [...] l de 50 MG 16:10: TID, 0 [place] Oral Tablet 00 Refill(s) Hydralazine 0 Yes 50 mg = 1 M [facility] Hydrochlori 1-07 tab, PO, l de 50 MG 16:10: TID, 0 [place] Oral Tablet 00 Refill(s) Hydralazine 0 Yes 50 mg = 1 M em[facility] Hydrochlori 1-07 tab, PO, l de 50 MG 16:10: TID, 0 [place] Oral Tablet 00 Refill(s) Hydralazine 0 Yes 50 mg = 1 M [facility] Hydrochlori 1-07 tab, PO, l de 50 MG 16:10: TID, 0 [place] Oral Tablet 00 Refill(s) lisinopril Yes 10 [...] tab, PO, l tablet 16:09: BID, 0 [place] 00 Refill(s) lisinopril 2016-0 Yes 10 mg = 1 Me moria 10 mg oral 1-07 tab, PO, l tablet 16:09: BID, 0 [place] 00 Refill(s) lisinopril 2016-0 Yes 10 mg [...] tab, PO, l tablet 16:09: BID, 0 [place] 00 Refill(s) lisinopril 2016-0 Yes 10 mg = 1 Me moria 10 mg oral 1-07 tab, PO, l tablet 16:09: BID, 0 [place] 00 Refill(s) lisinopril 2016-0 Yes 10 mg = 1 Me [facility] 10 mg oral 1-07 tab, PO, l tablet 16:09: BID, 0 [place] 00 Refill(s) lisinopril 2016-0 Yes 10 mg = 1 Me [facility] 10 mg oral 1-07 tab, PO, l tablet 16:09: BID, 0 [place] 00 Refill(s) lisinopril 2016-0 Yes 10 mg = 1 Me mor[facility] 10 mg oral 1-07 tab, PO, l tablet 16:09: BID, 0 [place] 00 Refill(s) lisinopril 2016-0 Yes 10 mg = 1 [facility] 10 mg oral 1-07 tab, PO, l tablet 16:09: BID, 0 [place] 00 Refill(s) lisinopril 2016-0 Yes 10 mg = 1 Me [facility] 10 mg oral 1-07 tab, PO, l tablet 16:09: BID, 0 [place] 00 Refill(s) lisinopril 2016-0 Yes 10 mg = 1 [facility] 10 mg oral 1-07 tab, PO, l tablet 16:09: BID, 0 [place] 00 Refill(s) lisinopril 2016-0 Yes 10 mg = 1 [facility] 10 mg oral 1-07 tab, PO, l tablet 16:09: BID, 0 [place] 00 Refill(s) lisinopril 2016-0 Yes 10 mg [...] tab, PO, l tablet 16:09: BID, 0 [place] 00 Refill(s) lisinopril 2016-0 Yes 10 mg = 1 [facility] 10 mg oral 1-07 tab, PO, l tablet 16:09: BID, 0 [place] 00 Refill(s) lisinopril 2016-0 Yes 10 mg [...] tab, PO, l tablet 16:09: BID, 0 [place] 00 Refill(s) lisinopril 2016-0 Yes 10 mg = 1 Me [facility] 10 mg oral 1-07 tab, PO, l tablet 16:09: BID, 0 [place] 00 Refill(s) lisinopril 2016-0 Yes 10 mg = 1 [facility] 10 mg oral 1-07 tab, PO, l tablet 16:09: BID, 0 [place] 00 Refill(s) lisinopril 2016-0 Yes 10 mg = 1 [facility] 10 mg oral 1-07 tab, PO, l tablet 16:09: BID, 0 [place] 00 Refill(s) lisinopril 2016-0 Yes 10 mg = 1 [facility] 10 mg oral 1-07 tab, PO, l tablet 16:09: BID, 0 [place] 00 Refill(s) lisinopril 2016-0 Yes 10 mg [...] tab, PO, l tablet 16:09: BID, 0 [place] 00 Refill(s) lisinopril 2016-0 Yes 10 mg [...] tab, PO, l tablet 16:09: BID, 0 [place] 00 Refill(s) lisinopril 2015-0 Yes 10 mg = 1 [facility] 10 mg oral 1-07 tab, PO, l tablet 16:09: BID, 0 [place] 00 Refill(s) lisinopril 2015-0 Yes 10 mg = 1 Me [facility] 10 mg oral 1-07 tab, PO, l tablet 16:09: BID, 0 [place] 00 Refill(s) lisinopril 2015-0 Yes 10 mg = 1 Me [facility] 10 mg oral 1-07 tab, PO, l tablet 16:09: BID, 0 [place] 00 Refill(s) lisinopril 2016-0 Yes 10 mg = 1 Me [facility] 10 mg oral 1-07 tab, PO, l tablet 16:09: BID, 0 [place] 00 Refill(s) lisinopril 2016-0 Yes 10 mg = 1 Me [facility] 10 mg oral 1-07 tab, PO, l tablet 16:09: BID, 0 [place] 00 Refill(s) lisinopril 2016-0 Yes 10 mg = 1 Me [facility] 10 mg oral 1-07 tab, PO, l tablet 16:09: BID, 0 [place] 00 Refill(s) lisinopril 2015-0 Yes 10 mg = 1 Me [facility] 10 mg oral 1-07 tab, PO, l tablet 16:09: BID, 0 [place] 00 Refill(s) lisinopril 2016-0 Yes 10 mg = 1 Me [facility] 10 mg oral 1-07 tab, PO, l tablet 16:09: BID, 0 [place] 00 Refill(s) lisinopril 2016-0 Yes 10 mg = 1 [facility] 10 mg oral 1-07 tab, PO, l tablet 16:09: BID, 0 [place] 00 Refill(s) lisinopril 2016-0 Yes 10 mg = 1 [facility] 10 mg oral 1-07 tab, PO, l tablet 16:09: BID, 0 [place] 00 Refill(s) lisinopril 2016-0 Yes 10 mg = 1 [facility] 10 mg oral 1-07 tab, PO, l tablet 16:09: BID, 0 [place] 00 Refill(s) lisinopril 2016-0 Yes 10 mg [...] tab, PO, l tablet 16:09: BID, 0 [place] 00 Refill(s) lisinopril 2016-0 Yes 10 mg = 1 [facility] 10 mg oral 1-07 tab, PO, l tablet 16:09: BID, 0 [place] 00 Refill(s) lisinopril 2016-0 Yes 10 mg = 1 [facility] 10 mg oral 1-07 tab, PO, l tablet 16:09: BID, 0 [place] 00 Refill(s) lisinopril 2016-0 Yes 10 mg = 1 [facility] 10 mg oral 1-07 tab, PO, l tablet 16:09: BID, 0 [place] 00 Refill(s) lisinopril 2016-0 Yes 10 mg = 1 [facility] 10 mg oral 1-07 tab, PO, l tablet 16:09: BID, 0 [place] 00 Refill(s) lisinopril 2016-0 Yes 10 mg = 1 [facility] 10 mg oral 1-07 tab, PO, l tablet 16:09: BID, 0 [place] 00 Refill(s) lisinopril 2016-0 Yes 10 mg = 1 [facility] 10 mg oral 1-07 tab, PO, l tablet 16:09: BID, 0 [place] 00 Refill(s) lisinopril 2016-0 Yes 10 mg = 1 [facility] 10 mg oral 1-07 tab, PO, l tablet 16:09: BID, 0 [place] 00 Refill(s) lisinopril 2015-0 Yes 10 mg [...] tab, PO, l tablet 16:09: BID, 0 [place] 00 Refill(s) lisinopril 2016-0 Yes 10 mg = 1 [facility] 10 mg oral 1-07 tab, PO, l tablet 16:09: BID, 0 [place] 00 Refill(s) lisinopril 2016-0 Yes 10 mg = 1 [facility] 10 mg oral 1-07 tab, PO, l tablet 16:09: BID, 0 [place] 00 Refill(s) lisinopril 2016-0 Yes 10 mg = 1 [facility] 10 mg oral 1-07 tab, PO, l tablet 16:09: BID, 0 [place] 00 Refill(s) lisinopril 2016-0 Yes 10 mg = 1 [facility] 10 mg oral 1-07 tab, PO, l tablet 16:09: BID, 0 [place] 00 Refill(s) Amlodipine 2016-0 Yes 10 mg = 1 Me [facility] 10 MG Oral 1-07 tab, PO, l Tablet 16:08: Daily, 0 [place] [Norvasc] 00 Refill(s) Hydrochloro 2016-0 Yes 25 mg, PO, Memoria thiazide 11-07 Daily, 0 l 16:08: Refill(s) [place] 00 Amlodipine 2016-0 Yes 10 mg = 1 Me [facility] 10 MG Oral 1-07 tab, PO, l Tablet 16:08: Daily, 0 [place] [Norvasc] 00 Refill(s) Hydrochloro 2016-0 Yes 25 mg, PO, Memoria thiazide 11-07 Daily, 0 l 16:08: Refill(s) [place] 00 Amlodipine 2016-0 Yes 10 mg = 1 Me [facility] 10 MG Oral 1-07 tab, PO, l Tablet 16:08: Daily, 0 [place] [Norvasc] 00 Refill(s) Hydrochloro 2016-0 Yes 25 mg, PO, Memoria thiazide 11-07 Daily, 0 l 16:08: Refill(s) Amlodipine 2016-0 Yes 10 mg = 1 Me [facility] 10 MG Oral - tab, PO, l Tablet 16:08: Daily, 0 [place] [Norvasc] 00 Refill(s) Hydrochloro 2016-0 Yes 25 mg, PO, Memoria thiazide 11-07 Daily, 0 l 16:08: Refill(s) [place] 00 Amlodipine 2016-0 Yes 10 mg = 1 Me [facility] 10 MG Oral -07 tab, PO, l Tablet 16:08: Daily, 0 [place] [Norvasc] 00 Refill(s) Hydrochloro 2016-0 Yes 25 mg, PO, Memoria thiazide 11-07 Daily, 0 l 16:08: Refill(s) [place] 00 Amlodipine 2016-0 Yes 10 mg = 1 Me [facility] 10 MG Oral 1-07 tab, PO, l Tablet 16:08: Daily, 0 [place] [Norvasc] 00 Refill(s) Hydrochloro 2016-0 Yes 25 [...] thiazide 11-07 Daily, 0 l 16:08: Refill(s) [place] 00 Amlodipine 2016-0 Yes 10 mg = 1 Me [facility] 10 MG Oral -07 tab, PO, l Tablet 16:08: Daily, 0 [place] [Norvasc] 00 Refill(s) Hydrochloro 2016-0 Yes 25 mg, PO, Memoria thiazide 11-07 Daily, 0 l 16:08: Refill(s) Amlodipine 2016-0 Yes 10 mg = 1 Me [facility] 10 MG Oral -07 tab, PO, l Tablet 16:08: Daily, 0 [place] [Norvasc] 00 Refill(s) Hydrochloro 2016-0 Yes 25 mg, PO, Memoria thiazide 07 Daily, 0 l 16:08: Refill(s) Amlodipine 2016-0 Yes 10 mg = 1 Me [facility] 10 MG Oral 1-07 tab, PO, l Tablet 16:08: Daily, 0 [place] [Norvasc] 00 Refill(s) Hydrochloro 2016-0 Yes 25 mg, PO, Memoria thiazide 1-07 Daily, 0 l 16:08: Refill(s) Amlodipine 2016-0 Yes 10 mg = 1 [facility] 10 MG Oral 1-07 tab, PO, l Tablet 16:08: Daily, 0 [place] [Norvasc] 00 Refill(s) Hydrochloro 2016-0 Yes 25 mg, PO, Memoria thiazide 1-07 Daily, 0 l 16:08: Refill(s) [place] 00 Amlodipine 2016-0 Yes 10 mg = 1 Me [facility] 10 MG Oral 1-07 tab, PO, l Tablet 16:08: Daily, 0 [place] [Norvasc] 00 Refill(s) Hydrochloro 2016-0 Yes 25 [...] tab, PO, l Tablet 16:08: Daily, 0 [place] [Norvasc] 00 Refill(s) Hydrochloro 2016-0 Yes 25 [...] thiazide 11-07 Daily, 0 l 16:08: Refill(s) [place] 00 Amlodipine 2016-0 Yes 10 mg = 1 Me [facility] 10 MG Oral 1-07 tab, PO, l Tablet 16:08: Daily, 0 [place] [Norvasc] 00 Refill(s) Hydrochloro 2016-0 Yes 25 mg, PO, Memoria thiazide 11-07 Daily, 0 l 16:08: Refill(s) [place] 00 Amlodipine 2016-0 Yes 10 mg = 1 Me [facility] 10 MG Oral 1-07 tab, PO, l Tablet 16:08: Daily, 0 [place] [Norvasc] 00 Refill(s) Hydrochloro 2016-0 Yes 25 mg, PO, Memoria thiazide 11-07 Daily, 0 l 16:08: Refill(s) [place] 00 Amlodipine 2016-0 Yes 10 mg = [...] thiazide 11-07 Daily, 0 l 16:08: Refill(s) [place] 00 Amlodipine 2016-0 Yes 10 mg = 1 Me [facility] 10 MG Oral 1-07 tab, PO, l Tablet 16:08: Daily, 0 [place] [Norvasc] 00 Refill(s) Hydrochloro 2016-0 Yes 25 mg, PO, Memoria thiazide 11-07 Daily, 0 l 16:08: Refill(s) [place] 00 Amlodipine 2016-0 Yes 10 mg = 1 Me [facility] 10 MG Oral 1-07 tab, PO, l Tablet 16:08: Daily, 0 [place] [Norvasc] 00 Refill(s) Hydrochloro 2016-0 Yes 25 [...] thiazide 11-07 Daily, 0 l 16:08: Refill(s) [place] 00 Amlodipine 2016-0 Yes 10 mg = 1 Me [facility] 10 MG Oral -07 tab, PO, l Tablet 16:08: Daily, 0 [place] [Norvasc] 00 Refill(s) Hydrochloro 2016-0 Yes 25 mg, PO, Memoria thiazide 11-07 Daily, 0 l 16:08: Refill(s) Amlodipine 2016-0 Yes 10 mg = 1 Me [facility] 10 MG Oral -07 tab, PO, l Tablet 16:08: Daily, 0 [place] [Norvasc] 00 Refill(s) Hydrochloro 2016-0 Yes 25 [...] thiazide 1-07 Daily, 0 l 16:08: Refill(s) [place] 00 Amlodipine 2016-0 Yes 10 mg = [...] tab, PO, l Tablet 16:08: Daily, 0 [place] [Norvasc] 00 Refill(s) Hydrochloro 2016-0 Yes 25 mg, PO, Memoria thiazide 11-07 Daily, 0 l 16:08: Refill(s) Amlodipine 2015-0 Yes 10 mg = 1 Me [facility] 10 MG Oral -07 tab, PO, l Tablet 16:08: Daily, 0 [place] [Norvasc] 00 Refill(s) Hydrochloro 2016-0 Yes 25 mg, PO, Memoria thiazide 07 Daily, 0 l 16:08: Refill(s) Amlodipine 2016-0 Yes 10 mg = 1 Me [facility] 10 MG Oral -07 tab, PO, l Tablet 16:08: Daily, 0 [place] [Norvasc] 00 Refill(s) Hydrochloro 2016-0 Yes 25 [...] thiazide 11-07 Daily, 0 l 16:08: Refill(s) [place] 00 Amlodipine 2016-0 Yes 10 mg = 1 Me mor[facility] 10 MG Oral -07 tab, PO, l Tablet 16:08: Daily, 0 [place] [Norvasc] 00 Refill(s) Hydrochloro 2016-0 Yes 25 mg, PO, Memoria thiazide 11-07 Daily, 0 l 16:08: Refill(s) [place] 00 Amlodipine 2016-0 Yes 10 mg = 1 Me mor[facility] 10 MG Oral -07 tab, PO, l Tablet 16:08: Daily, 0 [place] [Norvasc] 00 Refill(s) Hydrochloro 2016-0 Yes 25 mg, PO, Memoria thiazide 11-07 Daily, 0 l 16:08: Refill(s) Amlodipine 2016-0 Yes 10 mg = 1 Me [facility] 10 MG Oral -07 tab, PO, l Tablet 16:08: Daily, 0 [place] [Norvasc] 00 Refill(s) Hydrochloro 2016-0 Yes 25 [...] tab, PO, l Tablet 16:08: Daily, 0 [place] [Norvasc] 00 Refill(s) Hydrochloro 2016-0 Yes 25 mg, PO, Memoria thiazide -07 Daily, 0 l 16:08: Refill(s) [place] 00 Amlodipine 2016-0 Yes 10 mg = 1 Me [facility] 10 MG Oral 1-07 tab, PO, l Tablet 16:08: Daily, 0 [place] [Norvasc] 00 Refill(s) Hydrochloro 2016-0 Yes 25 [...] tab, PO, l Tablet 16:08: Daily, 0 [place] [Norvasc] 00 Refill(s) Hydrochloro 2016-0 Yes 25 [...] 1-07 Daily, 0 l 16:08: Refill(s) Amlodipine 2015-0 Yes 10 mg = 1 Me [place] 10 MG Oral 1-07 tab, PO, l Tablet 16:08: Daily, 0 [place] [Norvasc] 00 Refill(s) Hydrochloro 2016-0 Yes 25 mg, PO, Memoria thiazide 1-07 Daily, 0 l 16:08: Refill(s) Amlodipine 0 Yes 10 mg = 1 Me [facility] 10 MG Oral -07 tab, PO, l Tablet 16:08: Daily, 0 [place] [Norvasc] 00 Refill(s) Hydrochloro 2016-0 Yes 25 mg, PO, Memoria thiazide 11-07 Daily, 0 l 16:08: Refill(s) Amlodipine 2015-0 Yes 10 mg = 1 Me [place] 10 MG Oral -07 tab, PO, l Tablet 16:08: Daily, 0 [place] [Norvasc] 00 Refill(s) Hydrochloro 2016-0 Yes 25 mg, PO, Memoria thiazide 07 Daily, 0 l 16:08: Refill(s) Amlodipine 2016-0 Yes 10 mg = 1 Me [place] 10 MG Oral -07 tab, PO, l Tablet 16:08: Daily, 0 [place] [Norvasc] 00 Refill(s) Hydrochloro 2016-0 Yes 25 [...] tab, PO, l Tablet 16:08: Daily, 0 [place] [Norvasc] 00 Refill(s) Hydrochloro 2016-0 Yes 25 mg, PO, Memoria thiazide 11-07 Daily, 0 l 16:08: Refill(s) [place] 00 Amlodipine 2016-0 Yes 10 mg = 1 Me [facility] 10 MG Oral -07 tab, PO, l Tablet 16:08: Daily, 0 [place] [Norvasc] 00 Refill(s) Hydrochloro 2016-0 Yes 25 mg, PO, Memoria thiazide 11-07 Daily, 0 l 16:08: Refill(s) [place] 00 Amlodipine 2016-0 Yes 10 mg = [...] 2015-0 Yes 25 mg, PO, Memoria thiazide 1-07 [...] tab, PO, l Tablet 16:08: Daily, 0 [place] [Norvasc] 00 Refill(s) Hydrochloro 2016-0 Yes 25 mg, PO, Memoria thiazide -07 Daily, 0 l 16:08: Refill(s) Amlodipine 2016-0 Yes 10 mg = 1 Me [place] 10 MG Oral 1-07 tab, PO, l Tablet 16:08: Daily, 0 [place] [Norvasc] 00 Refill(s) Hydrochloro 2016-0 Yes 25 [...] tab, PO, l Tablet 16:08: Daily, 0 [place] [Norvasc] 00 Refill(s) Hydrochloro 2016-0 Yes 25 mg, PO, Memoria thiazide 07 Daily, 0 l 16:08: Refill(s) Amlodipine Yes 10 mg = 1 Me [place] 10 MG Oral 1-07 tab, PO, l Tablet 16:08: Daily, 0 [place] [Norvasc] 00 Refill(s) Hydrochloro 2016-0 Yes 25 mg, PO, Memoria thiazide 07 Daily, 0 l 16:08: Refill(s) Amlodipine Yes [...] BID, 0 [facility] flakita tablet 00 Refill(s) gabapentin gabapentin No gabapentin [facility] 600 mg 600 mg 600 mg Family [...] SKIN EVERY EVENING hydralazine hydralazine No hydralazin [facility] 100 mg 100 mg e 100 mg Family tablet TAKE tablet TAKE tablet Pract[facility] 1 TABLET BY 1 TABLET BY TAKE 1 e MOUTH THREE MOUTH THREE TABLET BY TIMES DAILY TIMES DAILY MOUTH THREE TIMES DAILY hydrochloro hydrochloro No hydrochlor [facility] thiazide thiazide othiazide davida 12.5 mg 12.5 mg 12.5 mg Practi c capsule capsule capsule e TAKE 1 TAKE 1 TAKE 1 CAPSULE BY CAPSULE BY CAPSULE BY MOUTH DAILY MOUTH DAILY MOUTH DAILY hydrocodone hydrocodone No hydrocodon [facility] 7.5 7.5 e 7.5 [facility] mg-acetamin mg-acetamin mg-acetami Pract[facility] ophen 325 [...] USE gauge x TWICE DAILY TWICE DAILY 5/16" USE WITH MEALS WITH MEALS TWICE DAILY WITH MEALS [facility] bromide m bromide Fami ly 0.02 % 0.02 % 0.02 % Practic solution solution solution e for for for inhalation inhalation inhalation lisinopril lisinopril No lisinopril [facility] 40 mg 40 mg 40 mg Family tablet TAKE tablet TAKE tablet [facility] 1/2 TABLET 1/2 TABLET TAKE 1/2 e BY MOUTH BY MOUTH TABLET BY TWICE DAILY TWICE DAILY MOUTH TWICE DAILY mesalamine mesalamine No mesalamine [facility] ER 0.375 ER 0.375 ER 0.375 Fam ramses gram gram gram [facility] capsule,ext capsule,ext capsule,ex e ended ended tended release 24 release 24 release 24 hr TAKE 4 hr TAKE 4 hr TAKE 4 CAPSULES BY CAPSULES BY CAPSULES MOUTH DAILY MOUTH DAILY BY MOUTH DAILY metformin metformin No metformin [facility] 1,000 mg 1,000 mg 1,000 mg Fam ramses tablet TAKE tablet TAKE tablet Pract[facility] 1 TABLET BY 1 TABLET BY TAKE 1 e MOUTH TWICE MOUTH TWICE TABLET BY DAILY WITH DAILY WITH MOUTH MEALS MEALS TWICE DAILY WITH MEALS metoprolol metoprolol No metoprolol [facility] tartrate tartrate tartrate [facility]am r[facility]es 100 mg [...] DAILY TABLET BY MOUTH DAILY [facility] in 0.4 mg rin 0.4 mg [facility] sublingual sublingual sublingual [facility] tablet tablet tablet e PLACE [address] 1 TABLET TABLET TABLET UNDER THE UNDER THE UNDER THE TONGUE TONGUE TONGUE EVERY 5 EVERY 5 EVERY 5 MINUTES MINUTES MINUTES NEEDED FOR NEEDED FOR NEEDED FOR CHEST PAIN. CHEST PAIN. CHEST PAIN. ondansetron ondansetron No ondansetro [facility] HCl 4 mg HCl 4 mg n [...] MOUTH EVERY DAY spironolact spironolact No spironolac [facility] one 25 mg one 25 mg tone 25 mg Family tablet TAKE tablet TAKE tablet [facility] 1 TABLET BY 1 TABLET BY TAKE 1 e MOUTH EVERY MOUTH EVERY TABLET BY DAY DAY MOUTH EVERY DAY sucralfate sucralfate No sucralfate [facility] 1 gram 1 gram 1 gram Family [...] NEEDED FOR INSOMNIA albuterol albuterol No albuterol [facility] sulfate 2.5 sulfate 2.5 sulfate Family mg/3 mL mg/3 mL 2.5 mg/3 Pract ic (0.083 %) (0.083 %) mL (0.083 e solution solution %) for for solution nebulizatio nebulizatio for n n nebulizati on albuterol albuterol No albuterol [facility] sulfate HFA sulfate HFA sulfate Family 90 [...] SHORTNESS OF BREATH allopurinol allopurinol No allopurino [facility] 300 mg 300 mg l 300 mg Family tablet TAKE tablet TAKE tablet [facility] 1 TABLET BY 1 TABLET BY TAKE 1 e MOUTH TWICE MOUTH TWICE TABLET BY DAILY. DAILY. MOUTH TWICE DAILY. alprazolam alprazolam No alprazolam [facility] 2 mg tablet 2 mg tablet 2 mg F amily TAKE 1 TAKE 1 tablet [facility] TABLET BY TABLET BY TAKE 1 e MOUTH THREE MOUTH THREE TABLET BY TIMES DAILY TIMES DAILY MOUTH NEEDED NEEDED THREE FOR ANXIETY FOR ANXIETY TIMES DAILY NEEDED FOR ANXIETY amlodipine amlodipine No amlodipine [facility] 5 mg tablet 5 mg tablet 5 mg F amily TAKE 1 TAKE 1 tablet Practic TABLET BY TABLET BY TAKE 1 e MOUTH EVERY MOUTH EVERY TABLET BY DAY DAY MOUTH EVERY DAY atorvastati atorvastati No atorvastat [facility] n 20 mg n 20 mg in 20 mg Famil y tablet TAKE tablet TAKE tablet Pract[facility] 1 TABLET BY 1 TABLET BY TAKE 1 e MOUTH EVERY MOUTH EVERY TABLET BY DAY DAY MOUTH EVERY DAY BD Insulin BD Insulin No BD Insulin [facility] Syringe Syringe Syringe [facility] U-500 1/2 U-500 1/2 U-500 1/2 Practic [...] FOUR TIMES DAILY diclofenac diclofenac No diclofenac [facility] sodium 75 sodium 75 sodium 75 Family mg mg mg [facility] tablet,artem tablet,artem tablet,del e yed release yed release ayed TAKE 1 TAKE 1 release TABLET BY TABLET BY TAKE 1 MOUTH TWICE MOUTH TWICE TABLET BY DAILY WITH DAILY WITH MOUTH MEALS MEALS TWICE DAILY WITH MEALS dicyclomine dicyclomine No dicyclomin [facility] 10 mg 10 mg e 10 mg Family capsule capsule capsule Practi c TAKE 1 TAKE 1 TAKE 1 e CAPSULE BY CAPSULE BY CAPSULE BY MOUTH EVERY MOUTH EVERY MOUTH 8 HOURS 8 HOURS EVERY 8 HOURS Immunizations Ordered Filled Immunization Date Status Comments [facility] e Immunization Name Name Influenza Virus 2022-09-21 Completed [facility], 00:00:00 [facility] dical Preserv and ABX Branch Free 6 MO-64 YRS Influenza Virus 2022-09-21 Completed [facility], 00:00:00 [facility] dical Preserv and ABX Branch Free [...] [facility] Vaccine [facility] IM, 00:00:00 [place] [facility] Preserv and ABX Branch Free [...] Unive rsity of MODERNA VACCINE 00:00:00 [facility] [place] Branch SARS-COV-2 COVID-19 2021-07-11 Completed Unive rsity of MODERNA VACCINE 00:00:00 [facility] [place] Branch SARS-COV-2 COVID-19 2021-07-11 Completed Unive rsity of MODERNA VACCINE 00:00:00 [facility] [place] Branch SARS-COV-2 COVID-19 2021-07-11 Completed Unive rsity of MODERNA VACCINE 00:00:00 [facility] [place] Branch SARS-COV-2 COVID-19 2021-07-11 Completed [facility]ive rsity of MODERNA VACCINE 00:00:00 [facility] SARS-COV-2 COVID-19 2021-07-11 Completed Unive rsity of MODERNA VACCINE 00:00:00 [facility] [place] Branch SARS-COV-2 COVID-19 2021-07-11 Completed Unive rsity of MODERNA VACCINE 00:00:00 [facility] [place] Branch SARS-COV-2 COVID-19 2021-07-11 Completed Unive rsity of MODERNA VACCINE 00:00:00 [facility] [place] [facility] SARS-COV-2 COVID-19 2021-07-11 Completed Unive rsity of MODERNA VACCINE 00:00:00 [facility] SARS-COV-2 COVID-19 2021-07-11 Completed Unive rsity [...] Unive rsity of MODERNA VACCINE 00:00:00 [place] [facility] ical Branch SARS-COV-2 COVID-19 2021-01-01 Completed Unive rsity of MODERNA VACCINE 00:00:00 [place] [facility] SARS-COV-2 COVID-19 2021-01-01 Completed Unive rsity of MODERNA VACCINE 00:00:00 [place] [facility] ical Branch SARS-COV-2 COVID-19 2021-01-01 Completed Unive rsity of MODERNA VACCINE 00:00:00 [facility] ical Branch SARS-COV-2 COVID-19 2021-01-01 Completed Unive rsity of MODERNA VACCINE 00:00:00 [place] [facility] ical Branch SARS-COV-2 COVID-19 2021-01-01 Completed Unive rsity of MODERNA VACCINE 00:00:00 [facility] ical Branch SARS-COV-2 COVID-19 2021-01-01 Completed Unive rsity of MODERNA VACCINE 00:00:00 [facility] ical Branch SARS-COV-2 COVID-19 2021-01-01 Completed Unive rsity of MODERNA VACCINE 00:00:00 [facility] ical Branch SARS-COV-2 COVID-19 2021-01-01 Completed Unive rsity of MODERNA VACCINE 00:00:00 [facility] ical Branch SARS-COV-2 COVID-19 2021-01-01 Completed Unive [...] Unive rsity of MODERNA VACCINE 00:00:00 [place] [facility] ical Branch SARS-COV-2 COVID-19 2020-12-03 Completed Unive rsity of MODERNA VACCINE 00:00:00 [place] [facility] ical Branch SARS-COV-2 COVID-19 2020-12-03 Completed [...] y of Vaccine Quad .5 mL 00:00:00 [facility] IM 6+ MO Branch Influenza Virus 2020-11-13 [...] y of Vaccine Quad .5 mL 00:00:00 [facility] IM 6+ MO Branch Influenza Virus 2020-11-13 Completed [facility] Vaccine Quad .5 mL 00:00:00 [facility] IM 6+ MO Branch Pneumococcal 2016-09-11 Completed University o f Polysaccharide, 00:00:00 [place] [facility] PPSV23 (PNEUMOVAX) Branch Influenza Virus 2016-09-11 Completed Universit y of Vaccine (3+ yrs) 00:00:00 [facility] dical Branch Pneumococcal 2016-09-11 Completed University o f Polysaccharide, 00:00:00 [place] [facility] PPSV23 (PNEUMOVAX) Branch Influenza Virus 2016-09-11 Completed Universit [facility] of Vaccine (3+ yrs) 00:00:00 [facility] Branch Pneumococcal 2016-09-11 Completed University o f Polysaccharide, 00:00:00 [place] [facility] PPSV23 (PNEUMOVAX) Branch Influenza Virus 2016-09-11 Completed Universit y of Vaccine (3+ yrs) 00:00:00 [facility] Branch Pneumococcal 2016-09-11 Completed [facility] o f Polysaccharide, 00:00:00 [place] [facility] PPSV23 (PNEUMOVAX) Branch Influenza Virus 2016-09-11 Completed [facility]it [facility] of Vaccine (3+ yrs) 00:00:00 [facility] Branch Pneumococcal 2016-09-11 Completed [facility] o f Polysaccharide, 00:00:00 [place] [facility] PPSV23 (PNEUMOVAX) Branch Influenza Virus 2016-09-11 Completed [facility] of Vaccine (3+ yrs) 00:00:00 [facility] dicct Branch Pneumococcal 2016-09-11 Completed [facility] o f Polysaccharide, 00:00:00 [place] [facility] PPSV23 (PNEUMOVAX) Branch Influenza Virus 2016-09-11 Completed [facility] of Vaccine (3+ yrs) 00:00:00 [facility] dicct Branch Pneumococcal 2016-09-11 Completed University o f Polysaccharide, 00:00:00 [place] [facility] PPSV23 (PNEUMOVAX) Branch Influenza Virus 2016-09-11 Completed [facility]it [facility] of Vaccine (3+ yrs) 00:00:00 [facility] Branch Pneumococcal 2016-09-11 Completed University o f Polysaccharide, 00:00:00 [place] [facility] PPSV23 (PNEUMOVAX) Branch Influenza Virus 2016-09-11 Completed [facility]it [facility] of Vaccine (3+ yrs) 00:00:00 [facility] dical Branch Pneumococcal 2016-09-11 Completed University o f Polysaccharide, 00:00:00 [place] [facility] PPSV23 (PNEUMOVAX) Branch Influenza Virus 2016-09-11 Completed [facility] of Vaccine (3+ yrs) 00:00:00 [facility] Branch Pneumococcal 2016-09-11 Completed University o f Polysaccharide, 00:00:00 [place] [facility] PPSV23 (PNEUMOVAX) Branch Influenza Virus 2016-09-11 Completed [facility] of Vaccine (3+ yrs) 00:00:00 [facility] Branch Pneumococcal 2016-09-11 Completed University o f Polysaccharide, 00:00:00 [place] [facility] PPSV23 (PNEUMOVAX) Branch Influenza Virus 2016-09-11 Completed [facility] of Vaccine (3+ yrs) 00:00:00 [facility] Branch Pneumococcal 2016-09-11 Completed [facility] o f Polysaccharide, 00:00:00 [place] [facility] PPSV23 (PNEUMOVAX) Branch Influenza Virus 2016-09-11 Completed [facility] of Vaccine (3+ yrs) 00:00:00 [facility] Branch Pneumococcal 2016-09-11 Completed [facility] o f Polysaccharide, 00:00:00 [place] [facility] PPSV23 (PNEUMOVAX) Branch Influenza Virus 2016-09-11 Completed [facility] of Vaccine (3+ yrs) 00:00:00 [facility] Branch Pneumococcal 2016-09-11 Completed University o f Polysaccharide, 00:00:00 [place] [facility] PPSV23 (PNEUMOVAX) Branch Influenza Virus 2016-09-11 Completed [facility]it [facility] of Vaccine (3+ yrs) 00:00:00 [facility] Branch Pneumococcal 2016-09-11 Completed University o f Polysaccharide, 00:00:00 [place] [facility] PPSV23 (PNEUMOVAX) Branch Influenza Virus 2016-09-11 Completed [facility] of Vaccine (3+ yrs) 00:00:00 [facility] Pneumococcal 2016-09-11 Completed [facility] o f Polysaccharide, 00:00:00 [place] [facility] PPSV23 (PNEUMOVAX) Branch Influenza Virus 2016-09-11 Completed [facility] Vaccine (3+ yrs) 00:00:00 [facility] Pneumococcal 2016-09-11 Completed [facility] o f Polysaccharide, 00:00:00 [place] [facility] PPSV23 (PNEUMOVAX) Branch Influenza Virus 2016-09-11 Completed [facility]it [facility] Vaccine (3+ yrs) 00:00:00 [facility] Pneumococcal 2016-09-11 Completed [facility] o f Polysaccharide, 00:00:00 [place] [facility] PPSV23 (PNEUMOVAX) Branch Influenza Virus 2016-09-11 Completed [facility]it [facility] of Vaccine (3+ yrs) 00:00:00 [facility] Branch Pneumococcal 2016-09-11 Completed [facility] o f Polysaccharide, 00:00:00 [place] [facility] PPSV23 (PNEUMOVAX) Branch Influenza Virus 2016-09-11 Completed Universit y of Vaccine (3+ yrs) 00:00:00 [facility] dical Branch Pneumococcal 2016-09-11 Completed University o f Polysaccharide, 00:00:00 [place] [facility] PPSV23 (PNEUMOVAX) Branch Influenza Virus 2016-09-11 Completed Universit y of Vaccine (3+ yrs) 00:00:00 [facility] dical Branch Pneumococcal 2015-04-11 Completed University o [...] [facility] Influenza Virus 2013-09-29 Completed Universit y of Vaccine (3+ yrs) 00:00:00 [facility] Flu Trivalent 2013-09-29 Completed University of 00:00:00 [facility] Influenza Virus 2013-09-29 Completed Universit y of Vaccine (3+ yrs) 00:00:00 [facility] Flu Trivalent 2013-09-29 Completed University of 00:00:00 [facility] Influenza Virus 2013-09-29 Completed Universit y of Vaccine (3+ yrs) 00:00:00 [facility] Flu Trivalent 2013-09-29 Completed University of 00:00:00 [facility] Influenza Virus 2013-09-29 Completed Universit y of Vaccine (3+ yrs) 00:00:00 [facility] Flu Trivalent 2013-09-29 Completed University of 00:00:00 [facility] Influenza Virus 2013-09-29 Completed Universit y of Vaccine (3+ yrs) 00:00:00 [facility] Flu Trivalent 2013-09-29 Completed University of 00:00:00 [facility] Influenza Virus 2013-09-29 Completed Universit y of Vaccine (3+ yrs) 00:00:00 [facility] Flu Trivalent 2013-09-29 Completed University of 00:00:00 [facility] Influenza Virus 2013-09-29 Completed Universit y of Vaccine (3+ yrs) 00:00:00 [facility] Flu Trivalent 2013-09-29 Completed University of 00:00:00 [facility] Influenza Virus 2013-09-29 Completed Universit y of Vaccine (3+ yrs) 00:00:00 [facility] Flu Trivalent 2013-09-29 Completed University of 00:00:00 [facility] Influenza Virus 2013-09-29 Completed Universit y of Vaccine (3+ yrs) 00:00:00 [facility] Flu Trivalent 2013-09-29 Completed University of 00:00:00 [facility] Influenza Virus 2013-09-29 Completed Universit y of Vaccine (3+ yrs) 00:00:00 [facility] Flu Trivalent 2013-09-29 Completed University of 00:00:00 [facility] Influenza Virus 2013-09-29 Completed Universit y of Vaccine (3+ yrs) 00:00:00 [facility] Flu Trivalent 2013-09-29 Completed University of 00:00:00 [facility] Influenza Virus 2013-09-29 Completed Universit y of Vaccine (3+ yrs) 00:00:00 [facility] Flu Trivalent 2013-09-29 Completed University of 00:00:00 [facility] Influenza Virus 2013-09-29 Completed Universit y of Vaccine (3+ yrs) 00:00:00 [facility] Flu Trivalent 2013-09-29 Completed University of 00:00:00 [facility] Influenza Virus 2013-09-29 Completed Universit y of Vaccine (3+ yrs) 00:00:00 [facility] Flu Trivalent 2013-09-29 Completed University of 00:00:00 [facility] Influenza Virus 2013-09-29 Completed Universit y of Vaccine (3+ yrs) 00:00:00 [facility] Flu Trivalent 2013-09-29 Completed University of 00:00:00 [facility] Influenza Virus 2012-11-25 Completed Universit y of [...] [facility] Influenza Virus 2012-11-25 Completed Universit y of Vaccine (3+ yrs) 00:00:00 [facility] Flu Trivalent 2012-11-25 Completed University of 00:00:00 [facility] Influenza Virus 2012-11-25 Completed Universit y of Vaccine (3+ yrs) 00:00:00 [facility] Flu Trivalent 2012-11-25 Completed University of 00:00:00 [facility] Influenza Virus 2012-11-25 Completed Universit y of Vaccine (3+ yrs) 00:00:00 [facility] Flu Trivalent 2012-11-25 Completed University of 00:00:00 [facility] Influenza Virus 2012-11-25 Completed Universit y of Vaccine (3+ yrs) 00:00:00 [facility] Flu Trivalent 2012-11-25 Completed University of 00:00:00 [facility] Influenza Virus 2012-11-25 Completed Universit y of Vaccine (3+ yrs) 00:00:00 [facility] Flu Trivalent 2012-11-25 Completed University of 00:00:00 [facility] Influenza Virus 2012-11-25 Completed Universit y of Vaccine (3+ yrs) 00:00:00 [facility] Flu Trivalent 2012-11-25 Completed University of 00:00:00 [facility] Influenza Virus 2012-11-25 Completed Universit y of Vaccine (3+ yrs) 00:00:00 [facility] Flu Trivalent 2012-11-25 Completed University of 00:00:00 [facility] Influenza Virus 2012-11-25 Completed Universit y of Vaccine (3+ yrs) 00:00:00 [facility] Flu Trivalent 2012-11-25 Completed University of 00:00:00 [facility] Influenza Virus 2012-11-25 Completed Universit y of Vaccine (3+ yrs) 00:00:00 [facility] Flu Trivalent 2012-11-25 Completed University of 00:00:00 [facility] Influenza Virus 2012-11-25 Completed Universit y of Vaccine (3+ yrs) 00:00:00 [facility] Flu Trivalent 2012-11-25 Completed University of 00:00:00 [facility] Influenza Virus 2012-11-25 Completed Universit y of Vaccine (3+ yrs) 00:00:00 [facility] Flu Trivalent 2012-11-25 Completed University of 00:00:00 [facility] Influenza Virus 2012-11-25 Completed Universit y of Vaccine (3+ yrs) 00:00:00 [facility] Flu Trivalent 2012-11-25 Completed University of 00:00:00 [facility] Influenza Virus 2012-11-25 Completed Universit y of Vaccine (3+ yrs) 00:00:00 [facility] Flu Trivalent 2012-11-25 Completed University of 00:00:00 [facility] Influenza Virus 2012-11-25 Completed Universit y of Vaccine (3+ yrs) 00:00:00 [facility] Flu Trivalent 2012-11-25 Completed University 00:00:00 [facility] Influenza Virus 2012-11-25 Completed Universit y of Vaccine (3+ yrs) 00:00:00 [facility] Flu Trivalent 2012-11-25 Completed University 00:00:00 [facility] Vital Signs Vital Name Observation Time Observation Value Comments Source Systolic blood 2023-04-08 14:02:00 119 mm[Hg] Univer sity of pressure [facility] Diastolic blood 2023-04-08 14:02:00 75 mm[Hg] Unive rsity of pressure [facility] Heart rate 2023-04-08 14:02:00 73 /min Universi ty of [facility] Respiratory rate 2023-04-08 14:02:00 18 /min Univ ersity of [facility] Body height 2023-04-08 14:02:00 160 cm Universi ty of [facility] Body weight 2023-04-08 14:02:00 142.792 kg Universi ty of [facility] BMI 2023-04-08 14:02:00 55.76 kg/m2 [facility] Oxygen saturation in 2023-04-08 14:02:00 95 /min University of Arterial blood by [email or web address] mari Pulse oximetry Branch Systolic blood 2022-10-21 15:09:00 141 mm[Hg] Univer sity of pressure [facility] Diastolic blood 2022-10-21 15:09:00 81 mm[Hg] Unive rsity of pressure [facility] Heart rate 2022-10-21 15:08:00 84 /min [facility]i [facility] Body height 2022-10-21 15:08:00 160 cm [facility] Body weight 2022-10-21 15:08:00 151.275 kg [facility]i [facility] BMI 2022-10-21 15:08:00 59.08 kg/m2 [facility] Oxygen saturation in 2022-10-21 15:08:00 95 /min University of Arterial blood by [email or web address] mari Pulse oximetry Branch Systolic blood 2022-09-21 15:34:00 151 mm[Hg] Univer sity of pressure [facility] Diastolic blood 2022-09-21 15:34:00 74 mm[Hg] Unive rsity of pressure [facility] Heart rate 2022-09-21 15:33:00 86 /min Universi ty of [place] [facility] Body height 2022-09-21 15:33:00 160 cm [facility]i [facility] [place] [facility] Body weight 2022-09-21 15:33:00 149.778 kg [facility]i ty of [place] [facility] BMI 2022-09-21 15:33:00 58.49 kg/m2 [facility] Oxygen saturation in 2022-09-21 15:33:00 92 /min University of Arterial blood by [place] [facility] Pulse oximetry Branch Systolic blood 2022-08-25 14:59:00 121 mm[Hg] Univer sity of pressure [facility] Diastolic blood 2022-08-25 14:59:00 75 mm[Hg] Unive rsity of pressure [facility] Heart rate 2022-08-25 14:59:00 108 /min [facility]i ty [facility] Body temperature 2022-08-25 14:59:00 36.67 Pat Univ ersity of [facility] Body height 2022-08-25 14:59:00 160 cm [facility]i ty [facility] Body weight 2022-08-25 14:59:00 146.512 kg [facility] BMI 2022-08-25 14:59:00 57.22 kg/m2 [facility] Oxygen saturation in 2022-08-25 14:59:00 96 /min University of Arterial blood by [place] [facility] P[facility]xim[facility] Systolic blood 2022-03-18 14:25:00 120 mm[Hg] Univer sity of pressure [facility] Diastolic blood 2022-03-18 14:25:00 70 mm[Hg] Unive rsity of pressure [facility] Heart rate 2022-03-18 14:25:00 78 /min [facility]i ty [facility] Body height 2022-03-18 14:25:00 160 cm [facility]i ty [facility] [place] [facility] Body weight 2022-03-18 14:25:00 150.367 kg [facility] [place] [facility] BMI 2022-03-18 14:25:00 58.72 kg/m2 [facility] Oxygen saturation in 2022-03-18 14:25:00 95 /min University of Arterial blood by Bere guerra Pulse oxim[facility] Branch HEIGHT 2022-01-09 09:38:00 160 cm WEIGHT 2022-01-09 09:38:00 151.501 kg HEIGHT 2022-01-08 12:04:00 160 cm WEIGHT 2022-01-08 12:04:00 149.687 kg HEIGHT 2022-01-09 09:38:00 160 cm WEIGHT 2022-01-09 09:38:00 151.501 kg HEIGHT 2022-01-08 12:04:00 160 cm WEIGHT 2022-01-08 12:04:00 149.687 kg BP Diastolic 2021-08-21 00:00:00 89 mm[Hg] [facility] Height 2021-08-21 00:00:00 63 [in_i] [facility] BMI (Body Mass 2021-08-21 00:00:00 58.1 kg/m2 [facility] BP Systolic 2021-08-21 00:00:00 131 mm[Hg] [facility] Body Weight 2021-08-21 00:00:00 328 [lb_av] [facility] Body weight 2023-04-22 20:39:00 145.3 kg [facility] ty of [facility] BMI 2023-04-22 20:39:00 60.48 kg/m2 [facility] Systolic blood 2023-04-22 20:38:13 144 mm[Hg] Univer sity of pressure [facility] Diastolic blood 2023-04-22 20:38:13 81 mm[Hg] Unive rsity of pressure [facility] Heart rate 2023-04-22 20:38:13 91 /min Universi ty [facility] Body temperature 2023-04-22 20:38:13 36.89 Pat Univ ersity of [facility] Respiratory rate 2023-04-22 20:38:13 20 /min Univ ersity of [facility] Oxygen saturation in 2023-04-22 20:38:13 94 /min University of Arterial blood by Bere valentin Pulse oximetry [facility] Body height 2023-04-22 17:37:00 155 cm [facility]i ty of [facility] Systolic blood 2023-03-31 14:50:03 108 mm[Hg] Univer [...] 14:50:03 18 /min Univ ersity of [facility] Body height 2023-03-31 14:50:03 155 cm [facility]i ty [facility] Body weight 2023-03-31 14:50:03 141.4 kg [facility] ty [facility] BMI 2023-03-31 14:50:03 58.85 kg/m2 [facility] ty [facility] Oxygen saturation in 2023-03-31 14:50:03 94 /min University of Arterial blood by Bere vivaron Pulse oximetry [facility] Center Systolic blood 2023-03-11 16:45:59 129 mm[Hg] [...] Arterial blood by Bere valentin Pulse oximetry [facility] Body height 2023-02-06 13:19:00 155 cm [facility] Bere Carreon on [facility] Center Systolic blood 2022-01-09 13:53:00 157 mm[Hg] [facility] Diastolic blood 2022-01-09 13:53:00 89 mm[Hg] [facility] Heart rate 2022-01-09 13:53:00 80 /min [facility] Body temperature 2022-01-09 13:53:00 36.33 Pat [facility] Respiratory rate 2022-01-09 13:53:00 19 /min [facility] Oxygen saturation in 2022-01-09 13:53:00 93 /min [facility] Arterial blood by [facility] Vera rizo Pulse oximetry Body height 2022-01-09 09:38:00 160 cm [facility] Body weight 2022-01-09 09:38:00 151.501 kg [facility] BMI 2022-01-09 09:38:00 59.17 kg/m2 [facility] Systolic (mm Hg) 2018-04-04 19:53:00 [place] rial [place] Diastolic (mm Hg) 2018-04-04 19:53:00 Mem orial [place] Respitory Rate 2018-04-04 19:53:00 Memori al [place] Systolic (mm Hg) 2018-04-04 19:41:00 [place] rial [place] Diastolic (mm Hg) 2018-04-04 19:41:00 Mem orial [place] Respitory Rate 2018-04-04 19:41:00 Memori al [place] Systolic (mm Hg) 2018-04-04 18:06:00 [place] [facility] [place] Diastolic (mm Hg) 2018-04-04 18:06:00 Mem orial [place] Respitory Rate 2018-04-04 18:06:00 Mem[facility] [place] Weight 2018-04-04 18:04:00 [facility] [place] BMI Calculated 2018-04-04 18:04:00 Mem[facility] [place] Height 2018-03-30 16:54:00 160.02 cm [facility] [place] Respitory Rate 2018-03-21 22:06:00 Memori al [place] Systolic (mm Hg) 2018-03-21 22:06:00 [place] [facility] [place] Diastolic (mm Hg) 2018-03-21 22:06:00 Mem orial [place] Respitory Rate 2018-03-21 21:53:00 Memori al [place] Systolic (mm Hg) 2018-03-21 21:53:00 [place] [facility] [place] Diastolic (mm Hg) 2018-03-21 21:53:00 Mem orial [place] Systolic (mm Hg) 2018-03-21 19:08:00 [place] rial [place] Diastolic (mm Hg) 2018-03-21 19:08:00 Mem orial [place] Respitory Rate 2018-03-21 19:08:00 Memori al [place] Height 2018 18:32:00 160.02 cm [facility] [place] Weight 2018 18:32:00 [facility] [place] BMI Calculated 2018 18:32:00 Memori [facility] [place] Weight 2015-11-07 16:05:00 [facility] [place] BMI Calculated 2015-11-07 16:05:00 Memori al [place] Height 2015-11-07 16:05:00 160.02 cm [facility] Procedures Procedure Date / Time Performing Clinician Source Performed MRI ORBITS W WO CONTRAST 2023-04-22 [facility] versity of 19:58:00 Bere olivier [facility] PROLACTIN 2023-04-22 [facility] o f 17:28:58 Bere olivier [facility] INSULIN LIKE GROWTH FACTOR 1 2023-04-22 [facility] of 17:28:58 Bere olivier [facility] FREE THYROXINE 2023-04-22 [facility] o f 17:28:58 Bere olivier [facility] TOTAL T3 2023-04-22 [facility] o f 17:28:58 Bere olivier [facility] THYROID STIMULATING HORMONE 2023[facility]04[facility]22 [facility] of 17:28:58 Bere olivier [facility] LUTEINIZING HORMONE 2023[facility]04-22 [facility] 17:28:58 Bere olivier [facility] FOLLICLE STIMULATING HORMONE 2023-04-22 [facility] of LEVEL 17:28:[address] [place] [facility] ESTRADIOL LEVEL 2023-04-22 [facility] o f 17:28:[address] [place] [facility] ADRENOCORTICOTROPIC HORMONE 2023-04-22 [facility] of 17:28:[address] [place] [facility] CORTISOL 2023-04-22 [facility] o f 17:28:[address] [place] [facility] COMPLETE BLOOD COUNT W/ 2023-04-22 [facility] ersity of DIFFERENTIAL 17:28:[address] [place] [facility] ELECTROLYTE PANEL 2023-04-22 [facility] of 17:28:[address] [place] [facility] SERUM CREATININE 2023-04-22 [facility] of 17:28:[address] [place] [facility] BLOOD UREA NITROGEN 2023-04-22 [facility] 17:28:[address] [place] [facility] SERUM CREATININE 2023-04-22 [facility] of 17:28:[address] [place] [facility] .GLOMERULAR FILTRATION RATE 2023-04-22 [facility] of 17:28:[address] [place] [facility] Results CBC 2023-04-22 [facility] o f 17:28:[address] [place] [facility] MANUAL DIFFERENTIAL 2023-04-22 [facility] Universi ty of 17:28:[address] [place] [facility] INSURANCE CORRESPONDENCE 2023-03-12 Doctor Unassigned, Univ ersity of 05:01:00 Declo [facility] COMPLETE BLOOD COUNT W/ 2023-03-11 Lorena Hdez [facility] versity of DIFFERENTIAL 16:15:10 [place] [facility] COMPREHENSIVE METABOLIC PANEL 2023-03-11 Lorena Hdez [facility] 16:15:10 [place] [facility] MAGNESIUM LEVEL 2023-03-11 Lorena Hdez [facility] of 16:15:[address] [place] [facility] Results CBC 2023-03-11 Lorena Hdez [facility] of 16:15:[address] [place] [facility] MANUAL DIFFERENTIAL 2023-03-11 Lorena Hdez [facility] ity of 16:15:[address] [place] [facility] GLUCOSE LEVEL 2023-03-11 Lorena Hdez [facility] of 16:15:[address] [place] [facility] BLOOD UREA NITROGEN 2023-03-11 Lorena Hdez [facility] ity of 16:15:[address] [place] [facility] ELECTROLYTE PANEL 2023-03-11 [facility] 16:15:[address] [place] [facility] SERUM CREATININE 2023-03-11 [facility] 16:15:[address] [place] [facility] .GLOMERULAR FILTRATION RATE 2023-03-11 Lorena Hdez [facility] of 16:15:[address] [place] [facility] CALCIUM LEVEL TOTAL 2023-03-11 Lorena Hdez [facility] ity of 16:15:[address] [place] [facility] ALBUMIN LEVEL 2023-03-11 [facility] 16:15:[address] [place] [facility] ALKALINE PHOSPHATASE 2023-03-11 [facility] 16:15:[address] [place] [facility] ALANINE AMINOTRANSFERASE 2023-03-11 Lorena Hdez iversity of 16:15:[address] [place] [facility] ASPARTATE AMINOTRANSFERASE 2023-03-11 Lorena Hdez [facility] of 16:15:[address] [place] [facility] TOTAL PROTEIN 2023-03-11 [facility] 16:15:[address] [place] [facility] FRACTIONATED BILIRUBIN 2023-03-11 Lorena Hdez [facility] ersity of 16:15:[address] [place] [facility] COMPLETE BLOOD COUNT W/ 2023-03-03 Lorena Hdez [facility] versity of DIFFERENTIAL 18:03:[address] [place] [facility] COMPREHENSIVE METABOLIC PANEL 2023-03-03 Lorena Hdez [facility] of 18:03:[address] [place] [facility] MAGNESIUM LEVEL 2023-03-03 Lorena Hdez [facility] of 18:03:[address] [place] [facility] Results CBC 2023-03-03 [facility] 18:03:[address] [place] [facility] MANUAL DIFFERENTIAL 2023-03-03 Lorena Hdez [facility] ity of 18:03:[address] [place] [facility] GLUCOSE LEVEL 2023-03-03 Simona Hdezfer [facility] of 18:03:[address] [place] [facility] BLOOD UREA NITROGEN 2023-03-03 Lorena Hdez [facility] ity of 18:03:[address] [place] [facility] ELECTROLYTE PANEL 2023-03-03 [facility] 18:03:[address] [place] [facility] SERUM CREATININE 2023-03-03 [facility] 18:03:[address] [place] [facility] .GLOMERULAR FILTRATION RATE 2023-03-03 Lorena Hdez [facility] of 18:03:[address] [place] [facility] CALCIUM LEVEL TOTAL 2023-03-03 Lorena Hdez [facility] ity of 18:03:[address] [place] [facility] ALBUMIN LEVEL 2023-03-03 [facility] of 18:03:[address] [place] [facility] ALKALINE PHOSPHATASE 2023-03-03 Lorena Hdez [facility] sity of 18:03:[address] [place] [facility] ALANINE AMINOTRANSFERASE 2023-03-03 Lorena Hdez iversity of 18:03:[address] [place] [facility] ASPARTATE AMINOTRANSFERASE 2023-03-03 [facility] 18:03:[address] [place] [facility] TOTAL PROTEIN 2023-03-03 [facility] of 18:03:[address] [place] [facility] FRACTIONATED BILIRUBIN 2023-03-03 Lorena Hdez [facility] ersity of 18:03:[address] [place] [facility] POC GLUCOSE SCREEN 2023-02-16 Phyllis Rangel, Universit y of 17:02:00 Ashleigh [place] [facility] ANTI-XA LEVEL 2023-02-16 Felipe, [facility] of 16:13:00 Silvia [place] [facility] POC GLUCOSE SCREEN 2023-02-16 Talat Sherman y of 12:20:00 Ashleigh [place] [facility] MAGNESIUM LEVEL 2023-02-16 Mark, [facility] of 11:15:00 [facility] PHOSPHORUS LEVEL 2023-02-16 [facility] 11:15:00 [facility] COMPLETE BLOOD COUNT W/ 2023-02-16 [facility] DIFFERENTIAL 11:15:00 [facility] COMPREHENSIVE METABOLIC PANEL 2023-02-16 Thao Romero V. Un iversity of 11:15:[address] [place] [facility] GLUCOSE LEVEL 2023-02-16 Thao Romero V. [facility] of 11:15:[address] [place] [facility] [facility] BLOOD UREA NITROGEN 2023-02-16 Thao Romero V. [facility] f 11:15:[address] [place] [facility] ELECTROLYTE PANEL 2023-02-16 Thao Romero V. [facility] of 11:15:[address] [place] [facility] SERUM CREATININE 2023-02-16 Thao Romero V. [facility] of 11:15:[address] [place] [facility] .GLOMERULAR FILTRATION RATE 2023-02-16 Thao Romero V. Univ ersity of 11:15:[address] [place] [facility] CALCIUM LEVEL TOTAL 2023-02-16 Thao Romero V. [facility] f 11:15:[address] [place] [facility] ALBUMIN LEVEL 2023-02-16 Thao Romero V. [facility] of 11:15:[address] [place] [facility] ALKALINE PHOSPHATASE 2023-02-16 Thao Romero V. [facility] of 11:15:[address] [place] [facility] ALANINE AMINOTRANSFERASE 2023-02-16 Thao Romero V. [facility] ity of 11:15:[address] [place] [facility] ASPARTATE AMINOTRANSFERASE 2023-02-16 Thao Romero V. Unive rsity of 11:15:[address] [place] [facility] TOTAL PROTEIN 2023-02-16 Thao Romero V. [facility] of 11:15:00 [place] MD Liane olivier [facility] FRACTIONATED BILIRUBIN 2023-02-16 Thao Romero V. Univers[facility] 11:15:00 [place] [facility] Results CBC 2023-02-16 Mark [facility] of 11:15:00 [facility] MANUAL DIFFERENTIAL 2023-02-16 [facility] 11:15:00 [facility] POC GLUCOSE SCREEN 2023-02-16 [facility] o f 02:26:00 [facility] POC GLUCOSE SCREEN 2023-02-15 [facility] o f 22:30:00 [facility] POC GLUCOSE SCREEN 2023-02-15 [facility] o f 17:15:00 [facility] POC GLUCOSE SCREEN 2023-02-15 [facility] o f 12:03:00 [facility] MAGNESIUM LEVEL 2023-02-15 [facility] 11:24:00 [facility] PHOSPHORUS LEVEL 2023-02-15 [facility] of 11:24:00 [facility] COMPLETE BLOOD COUNT W/ 2023-02-15 [facility] ty of DIFFERENTIAL 11:24:00 [facility] COMPREHENSIVE METABOLIC PANEL 2023-02-15 Thao Romero V. Un iversity of 11:24:00 [place] MD Rob [facility] GLUCOSE LEVEL 2023-02-15 Thao Romero V. [facility] of 11:24:[address] [place] [facility] BLOOD UREA NITROGEN 2023-02-15 Thao Romero V. [facility] f 11:24:[address] [place] [facility] ELECTROLYTE PANEL 2023-02-15 Thao Romero V. [facility] 11:24:[address] [place] [facility] SERUM CREATININE 2023-02-15 Thao Romero V. [facility] of 11:24:[address] [place] [facility] .GLOMERULAR FILTRATION RATE 2023-02-15 Thao Romero V. [facility] ersity of 11:24:00 [place] [facility] CALCIUM LEVEL TOTAL 2023-02-15 RomeroThao huynh . [facility] f 11:24:00 [place] MD Liane olivier [facility] ALBUMIN LEVEL 2023-02-15 Thao Romero V. [facility] of 11:24:[address] [place] [facility] ALKALINE PHOSPHATASE 2023-02-15 Thao Romero . [facility] 11:24:00 [place] [facility] ALANINE AMINOTRANSFERASE 2023-02-15 Thao Romero . [facility] ity of 11:24:[address] [place] [facility] ASPARTATE AMINOTRANSFERASE 2023-02-15 Thao Romero V. [facility] rs[facility] of 11:24:00 [place] [facility] TOTAL PROTEIN 2023-02-15 Thao Romero V. [facility] 11:24:[address] [place] [facility] FRACTIONATED BILIRUBIN 2023-02-15 Thao Romero V. Univers[facility] of 11:24:00 [place] [facility] Results CBC 2023-02-15 [facility] 11:24:00 [facility] [place] MANUAL DIFFERENTIAL 2023-02-15 [facility] f 11:24:00 [facility] POC GLUCOSE SCREEN 2023-02-15 [facility] o f 02:05:00 [facility] POC GLUCOSE SCREEN 2023-02-14 [facility] o f 22:46:00 [facility] POC GLUCOSE SCREEN 2023-02-14 [facility] o f 16:34:00 [facility] POC GLUCOSE SCREEN 2023-02-14 [facility] o f 13:58:00 [facility] MAGNESIUM LEVEL 2023-02-14 Mark [facility] of 11:24:00 [facility] PHOSPHORUS LEVEL 2023-02-14 [facility] 11:24:00 [facility] COMPLETE BLOOD COUNT W/ 2023-02-14 Mark [facility] ty of DIFFERENTIAL 11:24:00 [facility] COMPREHENSIVE METABOLIC PANEL 2023-02-14 Thao Romero V. Un iversity of 11:24:00 [place] [facility] GLUCOSE LEVEL 2023-02-14 Thao Romero V. [facility] 11:24:[address] [place] [facility] BLOOD UREA NITROGEN 2023-02-14 Thao Romero V. [facility] f 11:24:[address] [place] [facility] ELECTROLYTE PANEL 2023-02-14 Thao Romero V. [facility] 11:24:[address] [place] [facility] SERUM CREATININE 2023-02-14 Thao Romero V. [facility] 11:24:[address] [place] [facility] .GLOMERULAR FILTRATION RATE 2023-02-14 Thao Romero V. Univ ersity of 11:24:[address] [place] [facility] CALCIUM LEVEL TOTAL 2023-02-14 Thao Romero V. [facility] 11:24:00 [place] [facility] 2023-02-14 Thao Romero V. [facility] 11:24:[address] [place] [facility] ALKALINE PHOSPHATASE 2023-02-14 Thao Romero V. [facility] 11:24:[address] [place] [facility] ALANINE AMINOTRANSFERASE 2023-02-14 Thao Romero V. Univers ity of 11:24:[address] [place] [facility] ASPARTATE AMINOTRANSFERASE 2023-02-14 Thao Romero V. Unive rsity of 11:24:[address] [place] [facility] TOTAL PROTEIN 2023-02-14 Thao Romero V. [facility] 11:24:[address] [place] [facility] FRACTIONATED BILIRUBIN 2023-02-14 Thao Romero V. Universit y of 11:24:[address] [place] [facility] Results CBC 2023-02-14 Mark [facility] of 11:24:00 [facility] MANUAL DIFFERENTIAL 2023-02-14 Mark [facility] f 11:24:00 [facility] POC GLUCOSE SCREEN 2023-02-14 [facility] o f 02:44:00 [facility] POC GLUCOSE SCREEN 2023-02-13 [facility] o f 23:32:00 [facility] POC GLUCOSE SCREEN 2023-02-13 [facility] o f 18:19:00 [facility] POC GLUCOSE SCREEN 2023-02-13 [facility] o f 12:37:00 [facility] MAGNESIUM LEVEL 2023-02-13 [facility] 11:42:00 [facility] PHOSPHORUS LEVEL 2023-02-13 [facility] 11:42:00 [facility] COMPLETE BLOOD COUNT W/ 2023-02-13 Mark, [facility] ty of DIFFERENTIAL 11:42:00 [facility] COMPREHENSIVE METABOLIC PANEL 2023-02-13 Thao Romero V. iversity of 11:42:[address] [place] [facility] GLUCOSE LEVEL 2023-02-13 Thao Romero V. [facility] 11:42:[address] [place] [facility] BLOOD UREA NITROGEN 2023-02-13 Thao Romero V. [facility] f 11:42:[address] [place] [facility] ELECTROLYTE PANEL 2023-02-13 Thao Romero V. [facility] 11:42:[address] [place] [facility] SERUM CREATININE 2023-02-13 Thoa Romero V. [facility] of 11:42:[address] [place] [facility] .GLOMERULAR FILTRATION RATE 2023-02-13 Thao Romero V. Univ ersity of 11:42:00 Bere GRIFFIN [facility] CALCIUM LEVEL TOTAL 2023-02-13 Thao Romero V. [facility] f 11:42:[address] [place] [facility] ALBUMIN LEVEL 2023-02-13 Thao Romero V. [facility] 11:42:[address] [place] [facility] ALKALINE PHOSPHATASE 2023-02-13 Thao Romero V. [facility] 11:42:[address] [place] [facility] ALANINE AMINOTRANSFERASE 2023-02-13 Thao Romero V. Univers ity of 11:42:00 [place] [facility] ASPARTATE AMINOTRANSFERASE 2023-02-13 Thao Romero V. Unive rsity of 11:42:00 [place] MD Rob [facility] TOTAL PROTEIN 2023-02-13 Thao Romero V. University of 11:42:00 [place] [facility] FRACTIONATED BILIRUBIN 2023-02-13 Thao Romero V. Universit [facility] of 11:42:[address] [place] [facility] Results CBC 2023-02-13 Mark [facility] of 11:42:00 [facility] MANUAL DIFFERENTIAL 2023-02-13 Mark [facility] f 11:42:00 [facility] POC GLUCOSE SCREEN 2023-02-13 [facility] o f 03:26:00 [facility] POC GLUCOSE SCREEN 2023-02-13 [facility] o f 00:20:00 [facility] POC GLUCOSE SCREEN 2023-02-12 [facility] o f 20:06:00 [facility] POC GLUCOSE SCREEN 2023-02-12 [facility] o f 15:18:00 [facility] GENERAL LABORATORY ADD ON 2023-02-12 Kimberli Cortes sity of TEST 14:33:[address] [place] [facility] POC GLUCOSE SCREEN 2023-02-12 [facility] o f 13:55:00 [facility] MAGNESIUM LEVEL 2023-02-12 Mark [facility] 10:34:00 [facility] PHOSPHORUS LEVEL 2023-02-12 Mark [facility] 10:34:00 [facility] [place] [facility] COMPLETE BLOOD COUNT W/ 2023-02-12 Noel Floresi ty of DIFFERENTIAL 10:34:00 [facility] COMPREHENSIVE METABOLIC PANEL 2023-02-12 Thao Romero V. Un iversity of 10:34:[address] [place] [facility] GLUCOSE LEVEL 2023-02-12 Thao Romero V. [facility] 10:34:[address] [place] [facility] BLOOD UREA NITROGEN 2023-02-12 [facility] 10:34:[address] [place] [facility] ELECTROLYTE PANEL 2023-02-12 Thao Romero V. [facility] 10:34:[address] [place] [facility] SERUM CREATININE 2023-02-12 Thao Romero V. [facility] 10:34:[address] [place] [facility] .GLOMERULAR FILTRATION RATE 2023-02-12 Thao Romero V. [facility] ersity of 10:34:[address] [place] [facility] CALCIUM LEVEL TOTAL 2023-02-12 Thao Romero V. [facility] 10:34:[address] [place] [facility] ALBUMIN LEVEL 2023-02-12 Thao Romero V. [facility] 10:34:[address] [place] [facility] ALKALINE PHOSPHATASE 2023-02-12 Thao Romero V. [facility] 10:34:[address] [place] [facility] ALANINE AMINOTRANSFERASE 2023-02-12 Thao Romero Univers ity of 10:34:[address] [place] [facility] ASPARTATE AMINOTRANSFERASE 2023-02-12 Thao Romero V. Unive rsity of 10:34:[address] [place] [facility] TOTAL PROTEIN 2023-02-12 [facility] 10:34:[address] [place] [facility] FRACTIONATED BILIRUBIN 2023-02-12 Thao Romero V Universit y of 10:34:[address] [place] [facility] Results CBC 2023-02-12 [facility] 10[facility]34:00 [facility] MANUAL DIFFERENTIAL 2023-02-12 Mark [facility] 10:34:00 [facility] PROCALCITONIN 2023-02-12 Mark [facility] 10:34:00 [facility] POC GLUCOSE SCREEN 2023-02-12 Felipe, [facility] o f 03:16:00 [facility] POC GLUCOSE SCREEN 2023-02-12 [facility] o f 00:01:00 [facility] POC GLUCOSE SCREEN 2023-02-11 [facility] o f 18:59:00 [facility] POC GLUCOSE SCREEN 2023-02-11 [facility] o f 13:46:00 [facility] MAGNESIUM LEVEL 2023-02-11 [facility] 10[facility]42:00 [facility] PHOSPHORUS LEVEL 2023-02-11 [facility] 10:42:00 [facility] COMPLETE BLOOD COUNT W/ 2023-02-11 Mark [facility] ty of DIFFERENTIAL 10:42:00 [facility] COMPREHENSIVE METABOLIC PANEL 2023-02-11 Thao Romero V. iversity of 10:42:[address] [place] [facility] GLUCOSE LEVEL 2023-02-11 Thao Romero V. [facility] 10:42:[address] [place] [facility] BLOOD UREA NITROGEN 2023-02-11 [facility] f 10:42:[address] [place] [facility] ELECTROLYTE PANEL 2023-02-11 Thao Romero V. [facility] 10:42:[address] [place] [facility] SERUM CREATININE 2023-02-11 Thao Romero V. [facility] 10:42:00 [facility] .GLOMERULAR FILTRATION RATE 2023-02-11 Thao Romero V. Univ ersity of 10:42:[address] [place] [facility] CALCIUM LEVEL TOTAL 2023-02-11 Thao Romero V. [facility] 10:42:[address] [place] [facility] ALBUMIN LEVEL 2023-02-11 Thao Romero V. [facility] 10:42:[address] [place] [facility] ALKALINE PHOSPHATASE 2023-02-11 Thao Romero V. [facility] 10:42:[address] [place] [facility] ALANINE AMINOTRANSFERASE 2023-02-11 Thao Romero V. [facility] ity of 10:42:00 [place] [facility] ASPARTATE AMINOTRANSFERASE 2023-02-11 Thao Romero V. Unive rsity of 10:42:00 [place] MD Liane olivier [facility] TOTAL PROTEIN 2023-02-11 Thao Romero V. [facility] 10:42:00 [place] [facility] FRACTIONATED BILIRUBIN 2023-02-11 Thao Romero V. Universit y of 10:42:[address] [place] [facility] Results CBC 2023-02-11 Mark [facility] 10:42:00 [facility] MANUAL DIFFERENTIAL 2023-02-11 Mark [facility] f 10:42:00 [facility] CT MAXILLOFACIAL AREA W 2023-02-11 [facility] ity of CONTRAST 09:15:00 [facility] POC GLUCOSE SCREEN 2023-02-11 [facility] o f 03:42:00 [facility] POC GLUCOSE SCREEN 2023-02-10 [facility] o f 22:17:00 [facility] POC GLUCOSE SCREEN 2023-02-10 [facility] o f 17:27:00 [facility] POC GLUCOSE SCREEN 2023-02-10 [facility] o f 13:52:00 [facility] MAGNESIUM LEVEL 2023-02-10 Mark [facility] 10:43:00 [facility] PHOSPHORUS LEVEL 2023-02-10 Mark [facility] 10:43:00 [facility] COMPLETE BLOOD COUNT W/ 2023-02-10 Mark [facility] ty of DIFFERENTIAL 10:43:00 [facility] COMPREHENSIVE METABOLIC PANEL 2023-02-10 Thao Romero V. Un iversity of 10:43:00 [place] [facility] GLUCOSE LEVEL 2023-02-10 Thao Romero V. [facility] 10:43:[address] [place] [facility] BLOOD UREA NITROGEN 2023-02-10 Thao Romero V. [facility] f 10:43:[address] [place] [facility] ELECTROLYTE PANEL 2023-02-10 Thao Romero V. [facility] 10:43:[address] [place] [facility] SERUM CREATININE 2023-02-10 Thao Romero V. [facility] 10:43:[address] [place] [facility] .GLOMERULAR FILTRATION RATE 2023-02-10 Thao Romero V. [facility] ersity of 10:43:[address] [place] [facility] CALCIUM LEVEL TOTAL 2023-02-10 Thao Romero V. [facility] f 10:43:[address] [place] [facility] ALBUMIN LEVEL 2023-02-10 Thao Romero V. [facility] 10:43:[address] [place] [facility] ALKALINE PHOSPHATASE 2023-02-10 Thao Romero V. [facility] 10:43:[address] [place] [facility] ALANINE AMINOTRANSFERASE 2023-02-10 Thao Romero V. Univers ity of 10:43:[address] [place] [facility] ASPARTATE AMINOTRANSFERASE 2023-02-10 Thao Romero V. Unive rsity of 10:43:[address] [place] [facility] TOTAL PROTEIN 2023-02-10 Thao Romero V. [facility] 10:43:[address] [place] [facility] FRACTIONATED BILIRUBIN 2023-02-10 Thao Romero V. Univers[facility] of 10:43:[address] [place] [facility] Results CBC 2023-02-10 Mark [facility] 10:43:00 [facility] MANUAL DIFFERENTIAL 2023-02-10 [facility] 10:43:00 [facility] POC GLUCOSE SCREEN 2023-02-10 [facility] o f 03:27:00 [facility] POC GLUCOSE SCREEN 2023-02-09 [facility] o f 22:11:00 [facility] POC GLUCOSE SCREEN 2023-02-09 [facility] o f 18:18:00 [facility] POC GLUCOSE SCREEN 2023-02-09 [facility] o f 13:12:00 [facility] MAGNESIUM LEVEL 2023-02-09 Mark [facility] 10:37:00 [facility] PHOSPHORUS LEVEL 2023-02-09 Mark [facility] 10:37:00 [facility] COMPLETE BLOOD COUNT W/ 2023-02-09 Noel Flores ty of DIFFERENTIAL 10:37:00 [facility] COMPREHENSIVE METABOLIC PANEL 2023-02-09 Thao Romero V. Un iversity of 10:37:[address] [place] [facility] CREATINE KINASE 2023-02-09 Shelby [facility] [employer] of 10:37:[address] [place] [facility] GLUCOSE LEVEL 2023-02-09 Thao Romero V. [facility] 10:37:[address] [place] [facility] BLOOD UREA NITROGEN 2023-02-09 Thao Romero V. [facility] f 10:37:[address] [place] [facility] ELECTROLYTE PANEL 2023-02-09 Thao Romero V. [facility] 10:37:[address] [place] [facility] SERUM CREATININE 2023-02-09 Thao Romero V. [facility] 10:37:00 [facility] .GLOMERULAR FILTRATION RATE 2023-02-09 Thao Romero V. [facility] ersity of 10:37:[address] [place] [facility] CALCIUM LEVEL TOTAL 2023-02-09 Thao Romero V. [facility] f 10:37:[address] [place] [facility] ALBUMIN LEVEL 2023-02-09 Thao Romero V. [facility] 10:37:[address] [place] [facility] ALKALINE PHOSPHATASE 2023-02-09 Thao Romero V. [facility] 10:37:[address] [place] [facility] ALANINE AMINOTRANSFERASE 2023-02-09 Thao Romero V. Univers ity of 10:37:[address] [place] [facility] ASPARTATE AMINOTRANSFERASE 2023-02-09 Thao Romero V. Unive rsity of 10:37:00 [facility] TOTAL PROTEIN 2023-02-09 Thao Romero V. University of 10:37:00 [facility] FRACTIONATED BILIRUBIN 2023-02-09 Thao Romero V. [facility] 10:37:00 [place] [facility] Results CBC 2023-02-09 Mark [facility] 10:37:00 [facility] MANUAL DIFFERENTIAL 2023-02-09 Eun Flores o f 10:37:00 [facility] POC GLUCOSE SCREEN 2023-02-09 Derrick Gill [facility] ty of 03:21:[address] [place] [facility] POC GLUCOSE SCREEN 2023-02-08 Derrick Gill [facility] of 23:32:00 [place] [facility] US ARM VENOUS DOPPLER 2023-02-08 Derrick Gill Unive rsity of BILATERAL 23:28:[address] [place] [facility] ECHOCARDIOGRAM 2D COMPLETE W 2023-02-08 Thao Romero V. Uni versity of CONTRAST 19:23:[address] [place] [facility] POC GLUCOSE SCREEN 2023-02-08 Derrick Gill Universi ty of 17:21:[address] [place] [facility] POC GLUCOSE SCREEN 2023-02-08 Derrick Gill Universi ty of 12:46:00 [place] [facility] MAGNESIUM LEVEL 2023-02-08 Mark [facility] of 11:14:00 [facility] PHOSPHORUS LEVEL 2023-02-08 Mark [facility] of 11:14:00 [facility] COMPLETE BLOOD COUNT W/ 2023-02-08 Noel Flores ty of DIFFERENTIAL 11:14:00 [place] Bere GRIFFIN [facility] COMPREHENSIVE METABOLIC PANEL 2023-02-08 Thao Romero V. Un iversity of 11:14:00 [place] MD Rob [facility] GLUCOSE LEVEL 2023-02-08 Thao Romero V. [facility] 11:14:00 [place] [facility] BLOOD UREA NITROGEN 2023-02-08 Thao Romero V. [facility] f 11:14:00 [place] [facility] ELECTROLYTE PANEL 2023-02-08 Romero, [facility] of 11:14:[address] [place] [facility] SERUM CREATININE 2023-02-08 Romero, [facility]. [facility] of 11:14:[address] [place] [facility] .GLOMERULAR FILTRATION RATE 2023-02-08 Thao Romero V. [facility] ersity of 11:14:[address] [place] [facility] CALCIUM LEVEL TOTAL 2023-02-08 RomeroThoa huynh [facility] o f 11:14:[address] [place] [facility] ALBUMIN LEVEL 2023-02-08 Thao Romero . [facility] of 11:14:[address] [place] [facility] ALKALINE PHOSPHATASE 2023-02-08 Estella [facility]. [facility] of 11:14:[address] [place] [facility] ALANINE AMINOTRANSFERASE 2023-02-08 [facility] of 11:14:[address] [place] [facility] ASPARTATE AMINOTRANSFERASE 2023-02-08 Thao Romero V Unive rsity of 11:14:[address] [place] [facility] TOTAL PROTEIN 2023-02-08 Thao Romero [facility] of 11:14:[address] [place] [facility] FRACTIONATED BILIRUBIN 2023-02-08 Romero, [facility] Universit y of 11:14:[address] [place] [facility] Results CBC 2023-02-08 [facility] 11:14:00 [facility] MANUAL DIFFERENTIAL 2023-02-08 [facility] o f 11:14:00 [facility] POC GLUCOSE SCREEN 2023-02-08 Cortes-Dellan, Derrick Universi ty of 02:47:00 [place] [facility] POC GLUCOSE SCREEN 2023-02-08 Cortes-Dellan, Derrick Universi ty of 00:12:[address] [place] [facility] POC GLUCOSE SCREEN 2023-02-07 Cortes-Dellan, Derrick Universi ty of 22:43:00 [place] [facility] POC GLUCOSE SCREEN 2023-02-07 Cortes-Dellan, Derrick Universi ty of 18:16:[address] [place] [facility] POC GLUCOSE SCREEN 2023-02-07 Derrick Gill [facility] ty of 13:48:00 [place] [facility] BLOODCULTURE 2023-02-07 Tim Nguyen [facility] of 11:52:00 Bere Rob [facility] HIV 1/2 ANTIGEN/ANTIBODY, 2023-02-07 Thao Romero V. Univer sity of FOURTH GEN W/RFL 11:52:00 Bere Carreon [facility] HEPATITIS B SURFACE ANTIGEN, 2023-02-07 Thao Romero V. Uni versity of SERUM 11:52:00 Bere Rob [facility] HEPATITIS B CORE ANTIBODY 2023-02-07 Thao Romero V. Univer sity of 11:52:00 Bere Rob [facility] HEPATITIS C VIRUS AB SCREEN 2023-02-07 Thao Romero V. Univ ersity of W/REFLEX HCV PCR 11:52:00 Bere Carreon [facility] FERRITIN LVL 2023-02-07 Thao Romero V. [facility] of 11:52:00 Bere Rob [facility] TRANSFERRIN 2023-02-07 Thao Romero V. [facility] 11:52:00 [place] [facility] IRON LEVEL 2023-02-07 Thao Romero V. [facility] 11:52:00 [place] [facility] MAGNESIUM LEVEL 2023-02-07 [facility] 11:52:00 [facility] [place] [facility] PHOSPHORUS LEVEL 2023-02-07 [facility] of 11:52:00 [facility] Blackburn MD [facility] COMPLETE BLOOD COUNT W/ 2023-02-07 [facility] DIFFERENTIAL 11:52:00 Christian Blackburn MD [facility] COMPREHENSIVE METABOLIC PANEL 2023-02-07 Thao Romero V. Un iversity of 11:52:00 [place] [facility] LIPID PANEL 2023-02-07 Thao Romero V. [facility] 11:52:00 [place] [facility] HEMOGLOBIN A1C 2023-02-07 Thao Romero V. [facility] of 11:52:00 [place] MD Rob [facility] GLUCOSE LEVEL 2023-02-07 Thao Romero V. [facility] 11:52:00 Bere GRIFFIN [facility] BLOOD UREA NITROGEN 2023-02-07 Thao Romero V. [facility] f 11:52:[address] [place] [facility] ELECTROLYTE PANEL 2023-02-07 Thao Romero V. [facility] of 11:52:[address] [place] [facility] SERUM CREATININE 2023-02-07 Thao Romero V. [facility] 11:52:[address] [place] [facility] .GLOMERULAR FILTRATION RATE 2023-02-07 Thao Romero V. [facility] ersity of 11:52:[address] [place] [facility] CALCIUM LEVEL TOTAL 2023-02-07 Thao Romero V. [facility] f 11:52:[address] [place] [facility] ALBUMIN LEVEL 2023-02-07 Thao Romero V. [facility] 11:52:[address] [place] [facility] ALKALINE PHOSPHATASE 2023-02-07 Thao Romero V. [facility] of 11:52:[address] [place] [facility] ALANINE AMINOTRANSFERASE 2023-02-07 Thao Romero V. Univers ity of 11:52:[address] [place] [facility] ASPARTATE AMINOTRANSFERASE 2023-02-07 Thao Romero V. [facility] rsity of 11:52:[address] [place] [facility] TOTAL PROTEIN 2023-02-07 Thao Romero V. [facility] 11:52:[address] [place] [facility] FRACTIONATED BILIRUBIN 2023-02-07 Thao Romero V. Universit y of 11:52:[address] [place] [facility] Results CBC 2023-02-07 Mark [facility] of 11:52:00 [facility] MANUAL DIFFERENTIAL 2023-02-07 Mark [facility] f 11:52:00 [facility] [place] [facility] C. DIFFICILE DNA DETECTION 2023-02-07 Thao Romero V. [facility] rsity of 10:18:[address] [place] [facility] C DIFFICILE DNA ASSAY PATH 2023-02-07 Thao Romero V. [facility] rsity of REVIEW 10:18:[address] [place] [facility] GASTROINTESTINAL MULTIPLEX 2023-02-07 Thao Romero V. [facility] rsity of PCR PANEL 10:16:[address] [place] [facility] GASTROINTESTINAL MULTIPLEX 2023-02-07 Thao Romero V. [facility] rsity of PANEL PATH REVIEW 10:16:00 [place] MD Suraj bates [facility] POC GLUCOSE SCREEN 2023-02-07 Thao Romero V. [facility] 03:51:[address] [place] [facility] POC GLUCOSE SCREEN 2023-02-07 Thao Romero V. [facility] 00:28:[address] [place] [facility] EKG, 12-LEAD (PORTABLE) 2023-02-07 Irina Houston ity of 00:00:[address] [place] [facility] POC GLUCOSE SCREEN 2023-02-06 Thao Romero V. [facility] 22:13:[address] [place] [facility] POC GLUCOSE SCREEN 2023-02-06 Thao Romero V. [facility] 19:18:00 [place] [facility] POC GLUCOSE SCREEN 2023-02-06 Thao Romero V. [facility] 18:26:[address] [place] [facility] GENERAL LABORATORY ADD ON 2023-02-06 Thao Romero V. [facility] sity of TEST 16:44:[address] [place] [facility] BLOODCULTURE 2023-02-06 Mark [facility] 16:11:00 [facility] [place] [facility] POC GLUCOSE SCREEN 2023-02-06 Amanda Proctor [facility] 14:46:00 [place] [facility] POC GLUCOSE SCREEN 2023-02-06 [facility] 12:40:00 [place] [facility] POC GLUCOSE SCREEN 2023-02-06 [facility] Amanda [facility] 08:20:[address] [place] [facility] BASIC METABOLIC PANEL, 2023-02-06 Noel Floresit y of CALCIUM TOTAL 08:05:00 [facility] Blackburn [facility] MAGNESIUM LEVEL 2023-02-06 Mark [facility] 08:05:00 [facility] PHOSPHORUS LEVEL 2023-02-06 Mark [facility] 08:05:00 [facility] [place] [facility] COMPLETE BLOOD COUNT W/ 2023-02-06 Luis Manuel Flores ty of DIFFERENTIAL 08:05:00 [place] [facility] GLUCOSE LEVEL 2023-02-06 Cathie Meneses [facility] 08:05:[address] [place] [facility] BLOOD UREA NITROGEN 2023-02-06 Cathie Meneses [facility] 08:05:[address] [place] [facility] ELECTROLYTE PANEL 2023-02-06 Cathie Meneses [facility] 08:05:[address] [place] [facility] SERUM CREATININE 2023-02-06 Cathie Meneses [facility] 08:05:[address] [place] [facility] .GLOMERULAR FILTRATION RATE 2023-02-06 Cathie Meneses Uni versity of 08:05:[address] [place] [facility] CALCIUM LEVEL TOTAL 2023-02-06 Cathie Meneses [facility] 08:05:[address] [place] [facility] Results CBC 2023-02-06 Cathie Meneses [facility] 08:05:[address] [place] [facility] MANUAL DIFFERENTIAL 2023-02-06 Cathie Meneses [facility] 08:05:[address] [place] [facility] NT PRO BNP 2023-02-06 Cathie Meneses [facility] 08:05:[address] [place] [facility] PROCALCITONIN 2023-02-06 Cathie Meneses [facility] 08:05:[address] [place] [facility] C REACTIVE PROTEIN 2023-02-06 Cathie Meneses [facility] f 08:05:00 [place] [facility]SE SCREEN 2023-02-06 Amanda Proctor [facility] 06:17:[address] [place] [facility] TROPONIN T 2023-02-06 Irina Houston [facility] 06:09:00 [place] [facility] URINE CULTURE 2023-02-06 Irina Houston [facility] 05:40:[address] [place] [facility] PROTHROMBIN TIME 2023-02-06 Deneen Guevara [facility] 01:26:00 [place] [facility] APTT 2023-02-06 Deneen Guevara [facility] 01:26:[address] [place] [facility] D DIMER 2023-02-06 [facility] of 01:26:[address] [place] [facility] LACTIC ACID, VENOUS 2023-02-06 [facility] o f 01:26:00 [place] MD Liane olivier [facility] XR ABDOMEN AP 2023-02-05 Amanda Proctor of 23:59:27 [place] [facility] XR CHEST 1 VW 2023-02-05 Amanda Proctor of 23:57:49 [place] [facility] COVID-19 (SARS-COV-2) PCR - 2023-02-05 Amanda Proctor ersity of ASYMPTOMATIC - LT 22:09:00 [place] MD Ruelas [employer] [facility] POC GLUCOSE SCREEN 2023-02-05 [facility] of 21:27:00 [place] [facility] BLOODCULTURE 2023-02-05 Amanda Proctor of 20:39:00 [place] MD Rob [facility] BLOODCULTURE 2023-02-05 Amanda Proctor of 20:30:[address] [place] [facility] COMPLETE BLOOD COUNT W/ 2023-02-05 Amanda Proctori ty of DIFFERENTIAL 20:30:00 [place] MD Rob [facility] MAGNESIUM LEVEL 2023-02-05 Amanda Proctor of 20:30:00 [place] [facility] PHOSPHORUS LEVEL 2023-02-05 Amanda Proctor of 20:30:00 [place] [facility] NT PRO BNP 2023-02-05 Amanda Proctor of 20:30:00 [place] [facility] TROPONIN T 2023-02-05 Amanda Proctor of 20:30:00 [place] [facility] CREATINE KINASE 2023-02-05 Amanda Proctor of 20:30:00 [place] [facility] CKMB 2023-02-05 Amanda Proctor of 20:30:00 [place] [facility] C REACTIVE PROTEIN 2023-02-05 Amanda Proctor of 20:30:[address] [place] [facility] COMPREHENSIVE METABOLIC PANEL 2023-02-05 Amanda Proctor Un iversity of 20:30:00 [place] MD Liane olivier [facility] PROCALCITONIN 2023-02-05 Stevos, Amanda Haq of 20:30:00 [place] MD Liane olivier [facility] AMYLASE LEVEL 2023-02-05s, Amanda [facility] of 20:30:00 [place] [facility] LIPASE LEVEL 2023-02-05s, Amanda [facility] of 20:30:00 [place] [facility] Results CBC 2023-02-05 Stevos, Amanda [facility] of 20:30:00 [place] MD Liane olivier [facility] MANUAL DIFFERENTIAL 2023-02-05 Esthela, Amanda [facility] o f 20:30:00 [place] MD Liane olivier [facility] GLUCOSE LEVEL 2023-02-05 Stevos, Amanda [facility] 20:30:00 [place] [facility] soy [facility] BLOOD UREA NITROGEN 2023-02-05 Esthela, Amanda [facility] o f 20:30:00 [place] MD Liane olivier [facility] ELECTROLYTE PANEL 2023-02-05 Stevos, Amanda [facility] 20:30:00 [place] [facility] soy [facility] SERUM CREATININE 2023-02-05 Stevos, Amanda [facility] of 20:30:[address] [place] [facility] .GLOMERULAR FILTRATION RATE 2023-02-05 Amanda Proctor [facility] ersity of 20:30:00 [place] MD Liane olivier [facility] CALCIUM LEVEL TOTAL 2023-02-05 Amanda Proctor o f 20:30:00 [place] MD Liane olivier [facility] ALBUMIN LEVEL 2023-02-05 Amanda Proctor of 20:30:00 [place] Liane olivier [facility] ALKALINE PHOSPHATASE 2023-02-05 Stevos, Amanda [facility] of 20:30:00 [place] MD Liane olivier [facility] ALANINE AMINOTRANSFERASE 2023-02-05 Amanda Proctor [facility] ity of 20:30:00 [place] MD Liane olivier [facility] ASPARTATE AMINOTRANSFERASE 2023-02-05 Esthela, Amanda Mathure rsity of 20:30:00 [place] [facility] soy [facility] TOTAL PROTEIN 2023-02-05 Stevos, Amanda [facility] of 20:30:00 [place] MD Liane olivier [facility] FRACTIONATED BILIRUBIN 2023-02-05 Amanda Proctorit y of 20:30:00 Bere olivier [facility] URINALYSIS MICROSCOPIC 2023-02-05 Celso Iona Universi ty of 05:39:00 Bere olivier [facility] EKG, 12-LEAD (PORTABLE) 2023-02-05 Kamaljit Proctoryne [facility] ty of 00:00:00 Bere olivier [facility] COMPREHENSIVE METABOLIC PANEL 2023-02-04 [facility], [facility] of 17:33:52 Bere olivier [facility] COMPLETE BLOOD COUNT W/ 2023-02-04 [facility] [place], [facility] rsity of DIFFERENTIAL 17:33:52 Bere olivier [facility] MAGNESIUM LEVEL 2023-02-04 [facility] of 17:33:52 Bere olivier [facility] PHOSPHORUS LEVEL 2023-02-04 [facility] o f 17:33:52 Bere olivier [facility] GLUCOSE LEVEL 2023-02-04 [facility] of 17:33:52 Bere olivier [facility] BLOOD UREA NITROGEN 2023-02-04 [facility] y of 17:33:52 Bere olivier [facility] ELECTROLYTE PANEL 2023-02-04 [facility] of 17:33:52 Bere olivier [facility] SERUM CREATININE 2023-02-04 [facility] [place], [facility] o f 17:33:52 Bere olivier [facility] .GLOMERULAR FILTRATION RATE 2023-02-04 Vaibhav Rosario [facility] niversity of 17:33:52 Bere olivier [facility] CALCIUM LEVEL TOTAL 2023-02-04 [facility] [place], [facility] y of 17:33:52 Bere olivier [facility] ALBUMIN LEVEL 2023-02-04 [facility] [place], [facility] of 17:33:52 Bere olivier [facility] ALKALINE PHOSPHATASE 2023-02-04 [place], [facility] ty of 17:33:52 Bere olivier [facility] ALANINE AMINOTRANSFERASE 2023-02-04 [employer] [facility] ersity of 17:33:52 Bere olivier [facility] ASPARTATE AMINOTRANSFERASE 2023-02-04 Vaibhav Rosario Un iversity of 17:33:52 [place] MD Liane olivier [facility] TOTAL PROTEIN 2023-02-04 Vaibhav Rosario University of 17:33:52 [place] MD Liane olivier [facility] FRACTIONATED BILIRUBIN 2023-02-04 Vaibhav Rosario [facility] sity of 17:33:52 [place] MD Liane olivier [facility] Results CBC 2023-02-04 Vaibhav Rosario [facility] of 17:33:52 [place] MD Liane olivier [facility] [place] [facility] MANUAL DIFFERENTIAL 2023-02-04 Vaibhav Rosario [facility] y of 17:33:52 [place] MD Liane olivier [facility] POC GLUCOSE SCREEN 2023-02-01 Simbaqueba Saurabh, Universit y of 18:19:00 Elian olivier [facility] POC GLUCOSE SCREEN 2023-02-01 Simbaqueba Saurabh, Universit y of 12:47:00 Elian Carreon soy [facility] BASIC METABOLIC PANEL, 2023-02-01 Nabeel, Melody [facility] y of CALCIUM TOTAL 09:00:00 [place] MD Liane olivier [facility] MAGNESIUM LEVEL 2023-02-01 [facility] of 09:00:00 [place] [facility] PHOSPHORUS LEVEL 2023-02-01 [facility] of 09:00:00 [place] [facility] COMPLETE BLOOD COUNT W/ 2023-02-01 Nabeel, [facility] ty of DIFFERENTIAL 09:00:00 [place] MD Carreon soy [facility] GLUCOSE LEVEL 2023-02-01 Nabeel [facility] of 09:00:00 [place] [facility] BLOOD UREA NITROGEN 2023-02-01 [facility] o f 09:00:00 [place] [facility] ELECTROLYTE PANEL 2023-02-01 Nabeel, [facility] of 09:00:00 [place] [facility] SERUM CREATININE 2023-02-01 Nabeel [facility] of 09:00:[address] [place] [facility] .GLOMERULAR FILTRATION RATE 2023-02-01 Nabeel [facility] ersity of 09:00:00 [place] [facility] CALCIUM LEVEL TOTAL 2023-02-01 Nabeel, [facility] o f 09:00:00 [place] MD Liane olivier [facility] Results CBC 2023-02-01 [facility] 09:00:00 [place] MD Liane olivier [facility] MANUAL DIFFERENTIAL 2023-02-01 Nabeel, [facility] o f 09:00:00 [place] MD Liane olivier [facility] POC GLUCOSE SCREEN 2023-02-01 Simbaqueba Saurabh, Universit y of 02:36:00 Elian [place] MD Liane olivier [facility] Center POC GLUCOSE SCREEN 2023-01-31 Simbaqueba Saurabh, Universit y of 21:55:00 [facility] Center POC GLUCOSE SCREEN 2023-01-31 Simbaqueba Saurabh, Universit y of 17:13:00 [facility] Center POC GLUCOSE SCREEN 2023-01-31 Simbaqueba Saurabh, Universit y of 13:08:00 [facility] MD Carreon soy [facility] BASIC METABOLIC PANEL, 2023-01-31 [facility] y of CALCIUM TOTAL 08:15:00 [place] [facility] MAGNESIUM LEVEL 2023-01-31 [facility] of 08:15:[address] [place] [facility] PHOSPHORUS LEVEL 2023-01-31 [facility] [facility] of 08:15:[address] [place] [facility] COMPLETE BLOOD COUNT W/ 2023-01-31 [facility] ty of DIFFERENTIAL 08:15:00 [place] [facility] GLUCOSE LEVEL 2023-01-31 [facility] of 08:15:[address] [place] [facility] BLOOD UREA NITROGEN 2023-01-31 [facility] o f 08:15:[address] [place] [facility] ELECTROLYTE PANEL 2023-01-31 [facility] of 08:15:[address] [place] [facility] SERUM CREATININE 2023-01-31 [facility] of 08:15:[address] [place] [facility] .GLOMERULAR FILTRATION RATE 2023-01-31 [facility] ersity of 08:15:00 [place] [facility] CALCIUM LEVEL TOTAL 2023-01-31 [facility] o f 08:15:00 [place] MD Liane olivier [facility] Results CBC 2023-01-31 Nabeel, [facility] of 08:15:00 [place] MD Liane olivier [facility] MANUAL DIFFERENTIAL 2023-01-31 Nabeel [facility] o f 08:15:00 [place] [facility] POC GLUCOSE SCREEN 2023-01-31 Simbaqueba Saurabh, Univers[facility] of 02:23:00 Elian [place] MD Liane olivier [facility] Center POC GLUCOSE SCREEN 2023-01-30 Simbaqueba Saurabh, [facility] of 22:38:00 [facility] POC GLUCOSE SCREEN 2023-01-30 Simbaqueba Saurabh, [facility] of 17:51:00 [facility] Center POC GLUCOSE SCREEN 2023-01-30 Simbaqueba Saurabh, Universit [facility] of 14:45:00 [facility] soy [facility] BASIC METABOLIC PANEL, 2023-01-30 [facility] y of CALCIUM TOTAL 08:14:00 [place] [facility] MAGNESIUM LEVEL 2023-01-30 [facility] of 08:14:[address] [place] [facility] PHOSPHORUS LEVEL 2023-01-30 [facility] of 08:14:[address] [place] [facility] COMPLETE BLOOD COUNT W/ 2023-01-30 [facility] ty of DIFFERENTIAL 08:14:00 [place] [facility] GLUCOSE LEVEL 2023-01-30 [facility] of 08:14:[address] [place] [facility] BLOOD UREA NITROGEN 2023-01-30 [facility] o f 08:14:[address] [place] [facility] ELECTROLYTE PANEL 2023-01-30 [facility] of 08:14:[address] [place] [facility] SERUM CREATININE 2023-01-30 [facility] of 08:14:[address] [place] [facility] .GLOMERULAR FILTRATION RATE 2023-01-30 [facility] ersity of 08:14:[address] [place] [facility] CALCIUM LEVEL TOTAL 2023-01-30 [facility] o f 08:14:00 Bere olivier [facility] Results CBC 2023-01-30 Nabeel [facility] of 08:14:00 Bere olivier [facility] MANUAL DIFFERENTIAL 2023-01-30 Nabeel, [facility] o f 08:14:00 Bere olivier [facility] POC GLUCOSE SCREEN 2023-01-30 SimNoel Hessit y of 02:40:00 Elian olivier [facility] Center POC GLUCOSE SCREEN 2023-01-30 Simmarisa Deshpande Universit y of 00:24:00 Elian olivier [facility] POC GLUCOSE SCREEN 2023-01-29 Talat Oneal y of 22:51:00 Elian olivier [facility] VERIFY CATHETER TIP PLACEMENT 2023-01-29 Justo Banuelos [facility] of 20:08:01 Bere olivier [facility] XR CHEST 1 VW POST IMPLANT 2023-01-29 Kt Deshpande U niversity of 19:59:15 Elian Rob [facility] INSERT VASCULAR ACCESS DEVICE 2023-01-29 Eun Oneal of 19:04:31 Elian olivier [facility] POC GLUCOSE SCREEN 2023-01-29 Talat Oneal y of 19:04:00 Elian olivier [facility] POC GLUCOSE SCREEN 2023-01-29 Kt Deshpande Universjohn y of 13:50:00 Elian olivier [facility] BASIC METABOLIC PANEL, 2023-01-29 Melody Lees y of CALCIUM TOTAL 08:33:00 Bere olivier [facility] MAGNESIUM LEVEL 2023-01-29 Nabeel [facility] of 08:33:00 Bere olivier [facility] PHOSPHORUS LEVEL 2023-01-29 Nabeel [facility] of 08:33:00 Bere olivier [facility] COMPLETE BLOOD COUNT W/ 2023-01-29 Melody Lees ty of DIFFERENTIAL 08:33:00 Bere olivier [facility] GLUCOSE LEVEL 2023-01-29 [facility] of 08:33:00 [place] Liane olivier [facility] BLOOD UREA NITROGEN 2023-01-29 [facility] o f 08:33:00 [place] MD Liane olivier [facility] ELECTROLYTE PANEL 2023-01-29 [facility] of 08:33:00 [place] MD Liane olivier [facility] SERUM CREATININE 2023-01-29 [facility] of 08:33:00 [place] MD Liane olivier [facility] .GLOMERULAR FILTRATION RATE 2023-01-29 [facility] ersity of 08:33:00 [place] MD Liane olivier [facility] CALCIUM LEVEL TOTAL 2023-01-29 [facility] o f 08:33:00 [place] MD Liane olivier [facility] Results CBC 2023-01-29 [facility] of 08:33:00 [place] MD Liane olivier [facility] MANUAL DIFFERENTIAL 2023-01-29 [facility] o f 08:33:00 [place] MD Liane olivier [facility] Center POC GLUCOSE SCREEN 2023-01-29 Simbaqueba Saurabh, Universit [facility] of 03:21:00 [facility] MD Liane olivier [facility] POC GLUCOSE SCREEN 2023-01-28 Simbaqueba Saurabh, Universit [facility] of 23:27:00 Elian [place] MD Liane olivier [facility] POC GLUCOSE SCREEN 2023-01-28 Simbaqueba Saurabh, Universit [facility] of 17:57:00 Elian [place] MD Liane olivier [facility] POC GLUCOSE SCREEN 2023-01-28 Simbaqueba Saurabh, Universit [facility] of 15:38:00 Elian [place] MD Liane olivier [facility] Center HEMOGLOBIN 2023-01-28 Mana Powers [facility] of 13:24:00 [place] MD Liane olivier [facility] Center HEMATOCRIT 2023-01-28 Mana Powers [facility] of 13:24:00 [place] MD Liane olivier [facility] Center POC GLUCOSE SCREEN 2023-01-28 Simbaqueba Saurabh, Universit [facility] of 13:17:00 Elian [place] MD Liane olivier [facility] Center HEMOGLOBIN 2023-01-28 Mana Powers [facility] of 08:00:00 [place] MD Liane olivier [facility] Center HEMATOCRIT 2023-01-28 Gio, [facility] of 08:00:00 [place] MD Liane olivier [facility] BASIC METABOLIC PANEL, 2023-01-28 [facility] CALCIUM TOTAL 08:00:00 [place] MD Liane olivier [facility] MAGNESIUM LEVEL 2023-01-28 [facility] 08:[facility]00 [place] [facility] PHOSPHORUS LEVEL 2023-01-28 [facility] of 08:00:00 [place] MD Carreon soy [facility] COMPLETE BLOOD COUNT W/ 2023-01-28 [facility] ty of DIFFERENTIAL 08:00:00 [place] MD Liane olivier [facility] GLUCOSE LEVEL 2023-01-28 [facility] of 08:00:00 [place] [facility] BLOOD UREA NITROGEN 2023-01-28 [facility] o f 08:00:00 [place] MD aCrreon soy [facility] ELECTROLYTE PANEL 2023-01-28 [facility] of 08:00:00 [place] MD Rob [facility] SERUM CREATININE 2023-01-28 [facility] of 08:00:00 [place] [facility] .GLOMERULAR FILTRATION RATE 2023-01-28 [facility] ersity of 08:00:00 [place] [facility] CALCIUM LEVEL TOTAL 2023-01-28 [facility] o f 08:00:00 [place] MD Liane olivier [facility] Results CBC 2023-01-28 [facility] of 08:00:00 [place] MD Liane olivier [facility] MANUAL DIFFERENTIAL 2023-01-28 [facility] o f 08:00:00 [place] MD Liane olivier [facility] Center POC GLUCOSE SCREEN 2023-01-28 [facility] [address] 03:34:00 Jaycee [place] [facility] GLUCOSE SCREEN 2023-01-28 [facility] [address] 00:42:00 Jaycee [place] Liane olivier [facility] HEMOGLOBIN 2023-01-27 [facility] 21:15:00 [place] Liane olivier [facility] HEMATOCRIT 2023-01-27 [facility] 21:15:00 [place] MD Liane olivier [facility] POC GLUCOSE SCREEN 2023-01-27 [facility] of 19:38:00 Jaycee [place] Carreon soy [facility] Center POC GLUCOSE SCREEN 2023-01-27 [facility] of 16:11:00 [place] MD Liane olivier [facility] POC GLUCOSE SCREEN 2023-01-27 [facility] of 13:43:00 [place] MD Liane olivier [facility] BASIC METABOLIC PANEL, 2023-01-27 [facility] y of CALCIUM TOTAL 07:48:00 [place] MD Liane olivier [facility] MAGNESIUM LEVEL 2023-01-27 [facility] of 07:48:00 [place] [facility] PHOSPHORUS LEVEL 2023-01-27 [facility] of 07:48:00 [place] [facility] COMPLETE BLOOD COUNT W/ 2023-01-27 [facility] ty of DIFFERENTIAL 07:48:00 [place] MD Carreon soy [facility] GLUCOSE LEVEL 2023-01-27 [facility] of 07:48:00 [place] MD Rob [facility] BLOOD UREA NITROGEN 2023-01-27 [facility] o f 07:48:00 [place] [facility] ELECTROLYTE PANEL 2023-01-27 [facility] of 07:48:00 [place] [facility] SERUM CREATININE 2023-01-27 [facility] of 07:48:[address] [place] [facility] .GLOMERULAR FILTRATION RATE 2023-01-27 [facility] ersity of 07:48:00 [place] MD Liane olivier [facility] CALCIUM LEVEL TOTAL 2023-01-27 [facility] o f 07:48:00 [place] MD Liane olivier [facility] Results CBC 2023-01-27 [facility] of 07:48:00 [place] MD Liane oilvier [facility] MANUAL DIFFERENTIAL 2023-01-27 [facility] o f 07:48:00 [place] MD Liane olivier [facility] POC GLUCOSE SCREEN 2023-01-27 Felisa Rashid [facility] of 04:16:00 [place] Liane olivier [facility] URINE CULTURE 2023-01-27 [facility] of 03:45:00 [place] MD Rob [facility] URINALYSIS WITH MICROSCOPIC 2023-01-27 Amanda Proctor ersity of IF INDICATED 03:45:00 Bere olivier [facility] URINALYSIS MICROSCOPIC EXAM 2023-01-27 Amanda Proctor ersity of 03:45:00 [place] Liane olivier [facility] POC GLUCOSE SCREEN 2023-01-27 [facility] of 00:34:00 [place] MD Rob [facility] POC GLUCOSE SCREEN 2023-01-26 [facility] of 22:30:00 [place] MD Liane olivier [facility] COVID-19 (SARS-COV-2) PCR - 2023-01-26 Amanda Proctor ersity of ASYMPTOMATIC - LT 21:34:00 Bere Ruelas [employer] [facility] BLOODCULTURE 2023-01-26 Amanda Proctor of 19:44:00 Bere Rob [facility] COMPLETE BLOOD COUNT W/ 2023-01-26 Amanda Proctor ty of DIFFERENTIAL 19:44:00 Bere olivier [facility] MAGNESIUM LEVEL 2023-01-26 Amanda Proctor of 19:44:00 Bere olivier [facility] PHOSPHORUS LEVEL 2023-01-26 Amanda Proctor of 19:44:00 Bere olivier [facility] FRACTIONATED BILIRUBIN 2023-01-26 Amanda Proctorit y of 19:44:00 Bere olivier [facility] AMYLASE LEVEL 2023-01-26 Amanda Proctor of 19:44:00 Bere olivier [facility] LIPASE LEVEL 2023-01-26 Amanda Proctor of 19:44:00 Bere olivier [facility] LACTATE DEHYDROGENASE 2023-01-26 Amanda Proctor of 19:44:00 Bere olivier [facility] C REACTIVE PROTEIN 2023-01-26 Amanda Proctor of 19:44:00 Bere Rob [facility] COMPREHENSIVE METABOLIC PANEL 2023-01-26 Amanda Proctor iversity of 19:44:00 Bere olivier [facility] PROCALCITONIN 2023-01-26 Amanda Proctor of 19:44:00 Bere olivier [facility] Results CBC 2023-01-26 Amanda Proctor [facility] of 19:44:00 [place] Liane olivier [facility] MANUAL DIFFERENTIAL 2023-01-26 Amanda Proctor [facility] f 19:44:00 [place] Liane olivier [facility] GLUCOSE LEVEL 2023-01-26 Amanda Proctor [facility] 19:44:00 [place] [facility] BLOOD UREA NITROGEN 2023-01-26 Amanda Proctor [facility] f 19:44:00 [place] Liane olivier [facility] ELECTROLYTE PANEL 2023-01-26 Amanda Proctor [facility] 19:44:00 [place] [facility] SERUM CREATININE 2023-01-26 [facility] of 19:44:00 [place] [facility] soy [facility] .GLOMERULAR FILTRATION RATE 2023-01-26 Amanda Proctor [facility] ersity of 19:44:00 [place] MD Carreon soy [facility] CALCIUM LEVEL TOTAL 2023-01-26 Amanda Proctor [facility] f 19:44:00 [place] Carreon soy [facility] ALBUMIN LEVEL 2023-01-26 Amanda Proctor [facility] of 19:44:[address] [place] [facility] ALKALINE PHOSPHATASE 2023-01-26 Kamaljit ProctorFormerly [facility] of 19:44:00 [place] [facility] ALANINE AMINOTRANSFERASE 2023-01-26 Amanda Proctor [facility] ity of 19:44:[address] [place] [facility] ASPARTATE AMINOTRANSFERASE 2023-01-26 Amanda Proctor [facility] rsity of 19:44:00 [place] [facility] TOTAL PROTEIN 2023-01-26 Amanda Proctor [facility] of 19:44:[address] [place] [facility] COMPREHENSIVE METABOLIC PANEL 2023-01-20 Lorena Hdez [facility] of 17:53:46 [place] [facility] soy [facility] COMPLETE BLOOD COUNT W/ 2023-01-20 Lorena Hdez [facility] versity of DIFFERENTIAL 17:53:46 [place] MD Liane olivier [facility] MAGNESIUM LEVEL 2023-01-20 Lorena Hdez [facility] of 17:53:46 [place] [facility] PHOSPHORUS LEVEL 2023-01-20 Lorena Hdez [facility] of 17:53:[address] [place] [facility] GLUCOSE LEVEL 2023-01-20 [facility] of 17:53:46 [place] MD Rob [facility] BLOOD UREA NITROGEN 2023-01-20 [facility] ity of 17:53:46 [place] Liane olivier [facility] ELECTROLYTE PANEL 2023-01-20 [facility]onaLorena KaylaOrlando Health [facility]it y of 17:53:46 [place] MD Rob [facility] SERUM CREATININE 2023-01-20 [facility] of 17:53:46 [place] [facility] .GLOMERULAR FILTRATION RATE 2023-01-20 [facility] of 17:53:46 [place] MD Liane olivier [facility] CALCIUM LEVEL TOTAL 2023-01-20 [facility] ity of 17:53:46 [place] Liane olivier [facility] ALBUMIN LEVEL 2023-01-20 [facility] of 17:53:46 [place] MD Rob [facility] ALKALINE PHOSPHATASE 2023-01-20 [facility] sity of 17:53:46 [place] [facility] ALANINE AMINOTRANSFERASE 2023-01-20 [facility] iversity of 17:53:46 [place] [facility] ASPARTATE AMINOTRANSFERASE 2023-01-20 [facility] of 17:53:46 [place] [facility] TOTAL PROTEIN 2023-01-20 [facility] of 17:53:46 [place] MD Rob [facility] FRACTIONATED BILIRUBIN 2023-01-20 [facility] ersity of 17:53:46 [place] MD Liane olivier [facility] Results CBC 2023-01-20 [facility] of 17:53:46 [place] [facility] MANUAL DIFFERENTIAL 2023-01-20 [facility] ity of 17:53:46 [place] Liane olivier [facility] CONTROLLED SUBSTANCE 2023-01-20 [facility] PANEL, URINE 17:37:00 Rogerio Banner TETRAHYDROCANNABINOL 2023-01-20 [facility], UR 17:37:00 Hudsoncarlos [place] [facility] POC URINE DRUG SCREEN PANEL, 2023-01-20 Judy Kramer versity of QUALITATIVE 17:37:00 [facility] [place] [facility] POC GLUCOSE SCREEN 2023-01-18 [facility] of 18:10:[address] [place] [facility] POC GLUCOSE SCREEN 2023-01-18 [facility] of 12:46:[address] [place] [facility] BASIC METABOLIC PANEL, 2023-01-18 [facility]kit Locke [facility] rsity of CALCIUM TOTAL 09:03:[address] [place] [facility] MAGNESIUM LEVEL 2023-01-18 Ankit Locke o f 09:03:00 [place] [facility] PHOSPHORUS LEVEL 2023-01-18 Ankit Locke [facility] of 09:03:[address] [place] [facility] COMPLETE BLOOD COUNT W/ 2023-01-18 Ankit Locke ersity of DIFFERENTIAL 09:03:[address] [place] [facility] GLUCOSE LEVEL 2023-01-18 Ankit Locke o f 09:03:[address] [place] [facility] BLOOD UREA NITROGEN 2023-01-18 Ankit Locke [facility] ty of 09:03:[address] [place] [facility] ELECTROLYTE PANEL 2023-01-18 Ankit Locke [facility] of 09:03:[address] [place] [facility] SERUM CREATININE 2023-01-18 Ankit Locke [facility] of 09:03:[address] [place] [facility] .GLOMERULAR FILTRATION RATE 2023-01-18 Ankit Locke [facility] of 09:03:[address] [place] [facility] CALCIUM LEVEL TOTAL 2023-01-18 Ankit Locke [facility] ty of 09:03:00 [place] [facility] Results CBC 2023-01-18 Ankit Locke o f 09:03:[address] [place] [facility] MANUAL DIFFERENTIAL 2023-01-18 Ankit Locke Universi ty of 09:03:[address] [place] [facility] POC GLUCOSE SCREEN 2023-01-18 [facility] of 02:33:00 [place] [facility] POC GLUCOSE SCREEN 2023-01-17 [facility] of 23:22:[address] [place] [facility] POC GLUCOSE SCREEN 2023-01-17 [facility] of 17:43:[address] [place] [facility] POC GLUCOSE SCREEN 2023-01-17 [facility] of 13:58:[address] [place] [facility] BASIC METABOLIC PANEL, 2023-01-17 Ankit Locke [facility] rsity of CALCIUM TOTAL 09:31:[address] [place] [facility] MAGNESIUM LEVEL 2023-01-17 Ankit Locke [facility] f 09:31:[address] [place] [facility] PHOSPHORUS LEVEL 2023-01-17 Ankit Locke [facility] of 09:31:[address] [place] [facility] COMPLETE BLOOD COUNT W/ 2023-01-17 Ankit Locke [facility] ersity of DIFFERENTIAL 09:31:[address] [place] [facility] GLUCOSE LEVEL 2023-01-17 Ankit Locke [facility] f 09:31:[address] [place] [facility] BLOOD UREA NITROGEN 2023-01-17 Ankit Locke [facility] ty of 09:31:[address] [place] [facility] ELECTROLYTE PANEL 2023-01-17 Ankit Locke [facility] of 09:31:[address] [place] [facility] SERUM CREATININE 2023-01-17 Ankit Locke [facility] of 09:31:[address] [place] [facility] .GLOMERULAR FILTRATION RATE 2023-01-17 Ankit Locke [facility] of 09:31:[address] [place] [facility] CALCIUM LEVEL TOTAL 2023-01-17 Ankit Lokce [facility] ty of 09:31:[address] [place] [facility] Results CBC 2023-01-17 Ankit Locke [facility] f 09:31:[address] [place] [facility] MANUAL DIFFERENTIAL 2023-01-17 Ankit Locke [facility] ty of 09:31:00 [place] [facility] POC GLUCOSE SCREEN 2023-01-17 [facility] of 01:43:00 [place] [facility] POC GLUCOSE SCREEN 2023-01-16 [facility] of 22:16:[address] [place] [facility] POC GLUCOSE SCREEN 2023-01-16 [facility] of 17:25:00 [place] [facility] POC GLUCOSE SCREEN 2023-01-16 [facility] of 14:01:[address] [place] [facility] BASIC METABOLIC PANEL, 2023-01-16 Ankit Locke [facility] rsity of CALCIUM TOTAL 11:22:[address] [place] [facility] MAGNESIUM LEVEL 2023-01-16 Ankit Locke [facility] f 11:22:00 [place] [facility] PHOSPHORUS LEVEL 2023-01-16 Ankit Locke [facility] of 11:22:[address] [place] [facility] COMPLETE BLOOD COUNT W/ 2023-01-16 Ankit Locke ersity of DIFFERENTIAL 11:22:[address] [place] [facility] GLUCOSE LEVEL 2023-01-16 Ankit Locke [facility] f 11:22:00 [place] [facility] BLOOD UREA NITROGEN 2023-01-16 Ankit Locke [place] [facility] ty of 11:22:00 [place] [facility] ELECTROLYTE PANEL 2023-01-16 Ankit Locke [facility] of 11:22:[address] [place] [facility] SERUM CREATININE 2023-01-16 Ankit Locke [facility] of 11:22:[address] [place] [facility] .GLOMERULAR FILTRATION RATE 2023-01-16 Ankit Locke [facility] of 11:22:[address] [place] [facility] CALCIUM LEVEL TOTAL 2023-01-16 Ankit Locke [facility] ty of 11:22:[address] [place] [facility] Results CBC 2023-01-16 Ankit Locke [facility] f 11:22:00 [place] [facility] MANUAL DIFFERENTIAL 2023-01-16 Ankit Locke [facility] ty of 11:22:[address] [place] [facility] POC GLUCOSE SCREEN 2023-01-16 [facility] of 01:34:[address] [place] [facility] POC GLUCOSE SCREEN 2023-01-15 [facility] of 23:29:00 [place] [facility] POC GLUCOSE SCREEN 2023-01-15 [facility] of 18:11:00 [place] [facility] POC GLUCOSE SCREEN 2023-01-15 [facility] of 13:12:[address] [place] [facility] BASIC METABOLIC PANEL, 2023-01-15 Ankit Locke [facility] rsity of CALCIUM TOTAL 07:23:[address] [place] [facility] MAGNESIUM LEVEL 2023-01-15 Ankit Locke [facility] f 07:23:00 [place] [facility] PHOSPHORUS LEVEL 2023-01-15 Ankit Locke [facility] of 07:23:[address] [place] [facility] COMPLETE BLOOD COUNT W/ 2023-01-15 Ankit Locke [facility] ersity of DIFFERENTIAL 07:23:[address] [place] [facility] GLUCOSE LEVEL 2023-01-15 Ankit Locke [facility] f 07:23:00 [place] [facility] BLOOD UREA NITROGEN 2023-01-15 Ankit Locke [facility] ty of 07:23:00 [place] [facility] ELECTROLYTE PANEL 2023-01-15 Ankit Locke [facility] of 07:23:[address] [place] [facility] SERUM CREATININE 2023-01-15 Ankit Locke [facility] of 07:23:[address] [place] [facility] .GLOMERULAR FILTRATION RATE 2023-01-15 Ankit Locke [facility] of 07:23:[address] [place] [facility] CALCIUM LEVEL TOTAL 2023-01-15 Ankit Locke [facility] ty of 07:23:[address] [place] [facility] Results CBC 2023-01-15 Ankit Locke [facility] f 07:23:00 [place] [facility] MANUAL DIFFERENTIAL 2023-01-15 Ankit Locke [facility] ty of 07:23:[address] [place] [facility] POC GLUCOSE SCREEN 2023-01-15 [facility] of 03:18:[address] [place] [facility] POC GLUCOSE SCREEN 2023-01-15 [facility] of 00:17:[address] [place] [facility] POC GLUCOSE SCREEN 2023-01-14 [facility] of 19:43:[address] [place] [facility] POC GLUCOSE SCREEN 2023-01-14 [facility] of 14:54:[address] [place] [facility] POC GLUCOSE SCREEN 2023-01-14 [facility] of 12:55:[address] [place] [facility] BASIC METABOLIC PANEL, 2023-01-14 Ankit Locke [facility] rsity of CALCIUM TOTAL 08:31:[address] [place] [facility] MAGNESIUM LEVEL 2023-01-14 Ankit Locke [facility] f 08:31:[address] [place] [facility] PHOSPHORUS LEVEL 2023-01-14 Ankit Locke [facility] of 08:31:[address] [place] [facility] COMPLETE BLOOD COUNT W/ 2023-01-14 Ankit Locke [facility] ersity of DIFFERENTIAL 08:31:[address] [place] [facility] GLUCOSE LEVEL 2023-01-14 Ankit Locke [facility] f 08:31:[address] [place] [facility] BLOOD UREA NITROGEN 2023-01-14 Ankit Locke [facility] ty of 08:31:[address] [place] [facility] ELECTROLYTE PANEL 2023-01-14 Ankit Locke [facility] 08:31:[address] [place] [facility] SERUM CREATININE 2023-01-14 Ankit Locke [facility] 08:31:[address] [place] [facility] .GLOMERULAR FILTRATION RATE 2023-01-14 Ankit Locke [facility] 08:31:00 [place] [facility] CALCIUM LEVEL TOTAL 2023-01-14 Ankit Locke [facility] ty of 08:31:00 [place] [facility] Results CBC 2023-01-14 Ankit Locke [facility] f 08:31:[address] [place] [facility] MANUAL DIFFERENTIAL 2023-01-14 Ankit Locke [facility] ty of 08:31:[address] [place] [facility] POC GLUCOSE SCREEN 2023-01-14 [facility] 03:05:[address] [place] [facility] POC GLUCOSE SCREEN 2023-01-13 [facility] 23:08:[address] [place] [facility] POC GLUCOSE SCREEN 2023-01-13 [facility] 18:04:[address] [place] [facility] POC GLUCOSE SCREEN 2023-01-13 [facility] of 16:39:[address] [place] [facility] POC GLUCOSE SCREEN 2023-01-13 [facility] 14:36:00 [place] [facility] POC GLUCOSE SCREEN 2023-01-13 [facility] of 12:31:[address] [place] [facility] BASIC METABOLIC PANEL, 2023-01-13 Ankit Locke [facility] rsity of CALCIUM TOTAL 07:55:00 [place] [facility] MAGNESIUM LEVEL 2023-01-13 Ankit Locke [facility] f 07:55:00 [place] [facility] PHOSPHORUS LEVEL 2023-01-13 Ankit Locke [facility] 07:55:[address] [place] [facility] COMPLETE BLOOD COUNT W/ 2023-01-13 Ankit Locke [facility] ersity of DIFFERENTIAL 07:55:[address] [place] [facility] GLUCOSE LEVEL 2023-01-13 Irina Houston [facility] of 07:55:[address] [place] [facility] BLOOD UREA NITROGEN 2023-01-13 Irina Houston [facility] 07:55:[address] [place] [facility] ELECTROLYTE PANEL 2023-01-13 Irina Houston [facility] of 07:55:[address] [place] [facility] SERUM CREATININE 2023-01-13 CelsoIrina olivier [facility] of 07:55:[address] [place] [facility] .GLOMERULAR FILTRATION RATE 2023-01-13 Irina Houston [facility] versity of 07:55:[address] [place] [facility] CALCIUM LEVEL TOTAL 2023-01-13 CelsoIrina olivier [facility] of 07:55:[address] [place] [facility] Results CBC 2023-01-13 Celso, Iona [facility] of 07:55:[address] [place] [facility] MANUAL DIFFERENTIAL 2023-01-13 CelsoIrina olivier [facility] of 07:55:[address] [place] [facility] POC GLUCOSE SCREEN 2023-01-13 [facility] of 03:31:[address] [place] [facility] POC GLUCOSE SCREEN 2023-01-13 [facility] of 00:05:00 [place] [facility] POC GLUCOSE SCREEN 2023-01-12 [facility] of 18:51:00 [place] [facility] POC GLUCOSE SCREEN 2023-01-12 [facility] of 18:00:00 [place] [facility] POC GLUCOSE SCREEN 2023-01-12 Nico [facility] of 14:16:00 [place] [facility] POC GLUCOSE SCREEN 2023-01-12 Nico [facility] of 12:55:[address] [place] [facility] POC GLUCOSE SCREEN 2023-01-12 Nico Roberto Carlos [facility] of 10:59:[address] [place] [facility] BASIC METABOLIC PANEL, 2023-01-12 Ankit Locke [facility] of CALCIUM TOTAL 08:03:[address] [place] [facility] MAGNESIUM LEVEL 2023-01-12 Ankit Locke [facility] f 08:03:00 [place] [facility] PHOSPHORUS LEVEL 2023-01-12 Ankit Locke of 08:03:[address] [place] [facility] COMPLETE BLOOD COUNT W/ 2023-01-12 Ankit Locke ersity of DIFFERENTIAL 08:03:00 [place] [facility] 2023-01-12 Irina Houston [facility] of 08:03:[address] [place] [facility] BLOOD UREA NITROGEN 2023-01-12 Irina Houston [facility] of 08:03:[address] [place] [facility] ELECTROLYTE PANEL 2023-01-12 Irina Houston [facility] of 08:03:[address] [place] [facility] SERUM CREATININE 2023-01-12 Irina Houston [facility] of 08:03:[address] [place] [facility] .GLOMERULAR FILTRATION RATE 2023-01-12 Irina Houston [facility] versity of 08:03:[address] [place] [facility] CALCIUM LEVEL TOTAL 2023-01-12 Irina Houston [facility] of 08:03:[address] [place] [facility] Results CBC 2023-01-12 Irina Houston [facility] 08:03:[address] [place] [facility] MANUAL DIFFERENTIAL 2023-01-12 Irnia Houston [facility] 08:03:[address] [place] [facility] POC GLUCOSE SCREEN 2023-01-12 Roberto Carlos Walsh [facility] of 06:58:[address] [place] [facility] COVID-19 (SARS-COV-2) PCR - 2023-01-12 Nguyen Barcenas niversity of ASYMPTOMATIC - LT 03:25:00 [place] [facility] XR KNEE 1 OR 2 VW RIGHT 2023-01-12 Nguyen Barcenas rsity of 03:22:[address] [place] [facility] POC GLUCOSE SCREEN 2023-01-12 Roberto Carlos Walsh [facility] of 01:37:[address] [place] [facility] CT HEAD WO CONTRAST 2023-01-11 Nguyen Barcenas [facility] of 23:29:[address] [place] [facility] COMPLETE BLOOD COUNT W/ 2023-01-11 Nguyen Barcenase rsity of DIFFERENTIAL 21:11:[address] [place] [facility] COMPREHENSIVE METABOLIC PANEL 2023-01-11 Nguyen Barcenas [facility] of 21:11:[address] [place] [facility] MAGNESIUM LEVEL 2023-01-11 Nguyen Barcenas [facility] of 21:11:[address] [place] [facility] PHOSPHORUS LEVEL 2023-01-11 Nguyen Barcenas [facility] o f 21:11:[address] [place] [facility] PROTHROMBIN TIME 2023-01-11 Nguyen Barcenas [facility] o f 21:11:[address] [place] [facility] APTT 2023-01-11 Nguyen Barcenas [facility] of 21:11:[address] [place] [facility] Results CBC 2023-01-11 Nguyen Barcenas [facility] of 21:11:00 [facility] MANUAL DIFFERENTIAL 2023-01-11 Nguyen Barcenas [facility] of 21:11:[address] [place] [facility] GLUCOSE LEVEL 2023-01-11 Nguyen Barcenas [facility] of :11:[address] [place] [facility] BLOOD UREA NITROGEN 2023-01-11 Nguyen aBrcenas Univers[facility] of 21:11:00 [facility] ELECTROLYTE PANEL 2023-01-11 Nguyen Barcenas [facility] of 21:11:00 [facility] SERUM CREATININE 2023-01-11 Nguyen Barcenas [facility] f 21:11:[address] [place] [facility] .GLOMERULAR FILTRATION RATE 2023-01-11 Nguyen Barcenas U niversity of 21:11:[address] [place] [facility] CALCIUM LEVEL TOTAL 2023-01-11 Nguyen Barcenas [facility] of 21:11:[address] [place] [facility] ALBUMIN LEVEL 2023-01-11 Nguyen Barcenas [facility] of 21:11:[address] [place] [facility] ALKALINE PHOSPHATASE 2023-01-11 Nguyen Barcenas [facility]i ty of 21:11:[address] [place] [facility] ALANINE AMINOTRANSFERASE 2023-01-11 Nguyen Barcenas Univ ersity of 21:11:[address] [place] [facility] ASPARTATE AMINOTRANSFERASE 2023-01-11 Nguyen Barcenas Un iversity of 21:11:[address] [place] [facility] TOTAL PROTEIN 2023-01-11 Nguyen Barcenas [facility] of 21:11:[address] [place] [facility] FRACTIONATED BILIRUBIN 2023-01-11 Nguyen Barcenas Univer sity of 21:11:[address] [place] [facility] COMPREHENSIVE METABOLIC PANEL 2023-01-07 Lorena Hdez [facility] of 14:28:[address] [place] [facility] COMPLETE BLOOD COUNT W/ 2023-01-07 Lorena Hdez Uni versity of DIFFERENTIAL 14:28:[address] [place] [facility] MAGNESIUM LEVEL 2023-01-07 Lorena Hdez [facility] of 14:28:[address] [place] [facility] PHOSPHORUS LEVEL 2023-01-07 Lorena Hdez [facility] 14:28:[address] [place] [facility] GLUCOSE LEVEL 2023-01-07 Lorena Hdez [facility] 14:28:[address] [place] [facility] BLOOD UREA NITROGEN 2023-01-07 Lorena Hdez Univers ity of 14:28:[address] [place] [facility] ELECTROLYTE PANEL 2023-01-07 Lorena Hdez [facility] of 14:28:[address] [place] [facility] SERUM CREATININE 2023-01-07 Lorena Hdez [facility] 14:28:[address] [place] [facility] .GLOMERULAR FILTRATION RATE 2023-01-07 Lorena Hdez [facility] 14:28:[address] [place] [facility] CALCIUM LEVEL TOTAL 2023-01-07 Lorena Hdez Univers ity of 14:28:[address] [place] [facility] ALBUMIN LEVEL 2023-01-07 Lorena Hdez [facility] of 14:28:[address] [place] [facility] ALKALINE PHOSPHATASE 2023-01-07 Loerna Hdez [facility] sity of 14:28:[address] [place] [facility] ALANINE AMINOTRANSFERASE 2023-01-07 Lorena Hdez Un iversity of 14:28:[address] [place] [facility] ASPARTATE AMINOTRANSFERASE 2023-01-07 Lorena Hdez [facility] of 14:28:[address] [place] [facility] TOTAL PROTEIN 2023-01-07 [facility] 14:28:[address] [place] [facility] FRACTIONATED BILIRUBIN 2023-01-07 Lorena Hdez [facility] ersity of 14:28:[address] [place] [facility] Results CBC 2023-01-07 Lorena Hdez [facility] 14:28:[address] [place] [facility] MANUAL DIFFERENTIAL 2023-01-07 Lorena Hdez [facility] ity of 14:28:[address] [place] [facility] COMPREHENSIVE METABOLIC PANEL 2023-01-01 Lorena Hdez [facility] of 14:26:[address] [place] [facility] COMPLETE BLOOD COUNT W/ 2023-01-01 Lorena Hdez [facility] versity of DIFFERENTIAL 14:26:[address] [place] [facility] MAGNESIUM LEVEL 2023-01-01 [facility] of 14:26:[address] [place] [facility] PHOSPHORUS LEVEL 2023-01-01 [facility] of 14:26:[address] [place] [facility] GLUCOSE LEVEL 2023-01-01 Simona Hdezfer KaylaB[facility] of 14:26:[address] [place] [facility] BLOOD UREA NITROGEN 2023-01-01 Lorena Hdez [facility] ity of 14:26:[address] [place] [facility] ELECTROLYTE PANEL 2023-01-01 [facility] 14:26:[address] [place] [facility] SERUM CREATININE 2023-01-01 [facility] of 14:26:[address] [place] [facility] .GLOMERULAR FILTRATION RATE 2023-01-01 [facility] of 14:26:43 [place] [facility] CALCIUM LEVEL TOTAL 2023-01-01 Lorena Hdez [facility] ity of 14:26:[address] [place] [facility] ALBUMIN LEVEL 2023-01-01 Lorena Hdez [facility] of 14:26:[address] [place] [facility] ALKALINE PHOSPHATASE 2023-01-01 Lorena Hdez Univer sity of 14:26:43 [place] MD Liane olivier [facility] ALANINE AMINOTRANSFERASE 2023-01-01 Lorena Hdez Un iversity of 14:26:43 [place] [facility] ASPARTATE AMINOTRANSFERASE 2023-01-01 Lorena Hdez [facility] 14:26:43 [place] [facility] TOTAL PROTEIN 2023-01-01 Lorena Hdez [facility] 14:26:43 [place] [facility] FRACTIONATED BILIRUBIN 2023-01-01 Lorena Hdez [facility] ersity of 14:26:43 [place] [facility] Results CBC 2023-01-01 Lorena Hdez [facility] 14:26:43 [place] [facility] MANUAL DIFFERENTIAL 2023-01-01 Lorena Hdez [facility] ity of 14:26:[address] [place] [facility] [place] VISUAL FIELD, 2022-12-29 Suzanne Mcgrath Univers ity of INTERMEDIATE - OU - BOTH EYES 16:51:16 Dereck astudillo MD [facility] OCT, OPTIC NERVE - OU - BOTH 2022-12-29 Suzanne Mcgrath U niversity of EYES 16:43:[address] [place] [facility] OCT, RETINA - OU - BOTH EYES 2022-12-29 Suzanne Mcgrath niversity of 16:43:47 [place] [facility] COMPREHENSIVE METABOLIC PANEL 2022-12-24 Lorena Hdez [facility] of 15:16:00 [place] [facility] COMPLETE BLOOD COUNT W/ 2022-12-24 Lorena Hdez [facility] versity of DIFFERENTIAL 15:16:00 [place] MD Liane olivier [facility] MAGNESIUM LEVEL 2022-12-24 Lorena Hdez [facility] 15:16:00 [place] [facility] PHOSPHORUS LEVEL 2022-12-24 Lorena Hdez [facility] 15:16:00 [place] [facility] GLUCOSE LEVEL 2022-12-24 Lorena Hdez [facility] 15:16:[address] [place] [facility] BLOOD UREA NITROGEN 2022-12-24 Lorena Hdez [facility] ity of 15:16:00 [place] [facility] ELECTROLYTE PANEL 2022-12-[address] [facility] [facility] of 15:16:[address] [place] [facility] SERUM CREATININE 2022-12-24 [facility] of 15:16:[address] [place] [facility] .GLOMERULAR FILTRATION RATE 2022-12-24 Lorena Hdez [facility] of 15:16:00 [place] [facility] CALCI[facility] LEVEL TOTAL 2022-12-[address] [facility] ity of 15:16:[address] [place] [facility] ALBUMIN LEVEL 2022-12-24 Lorena Hdez [facility] of 15:16:[address] [place] [facility] ALKALINE PHOSPHATASE 2022-12-24 [facility] 15:16:[address] [place] [facility] ALANINE AMINOTRANSFERASE 2022-12-24 [facility] iversity of 15:16:[address] [place] [facility] ASPARTATE AMINOTRANSFERASE 2022-12-24 [facility] of 15:16:[address] [place] [facility] TOTAL PROTEIN 2022-12-24 Lorena Hdez [facility] of 15:16:00 [place] [facility] soy [facility] FRACTIONATED BILIRUBIN 2022-12-24 [facility] ers[facility] of 15:16:[address] [place] [facility] Results CBC 2022-12-24 Simona [facility]dezUNC [facility] of 15:16:[address] [place] [facility] MANUAL DIFFERENTIAL 2022-12-[address] [facility] ity of 15:16:[address] [place] [facility] COVID-19 (SARS-COV-2) PCR - 2022-12-23 Winter Luu Gini [facility] - 18:01:00 [place] MD Ruelas [employer] [facility] POC GLUCOSE SCREEN 2022-12-16 [facility] 00:07:00 [place] MD Rob [facility] POC GLUCOSE SCREEN 2022-12-15 [facility] of 18:52:00 [place] MD [facility] OCT, OPTIC NERVE - OU - BOTH 2022-12-15 Fareed Davis versity of EYES 16:37:[address] [place] [facility] OCT, RETINA - OU - BOTH EYES 2022-12-15 Fareed Davis Uni versity of 16:37:[address] [place] [facility] FUNDUS PHOTOS - OU - BOTH 2022-12-15 Fareed Daviser sity of EYES 16:37:[address] [place] [facility] 3D DENTAL IMAGING (ICAT) 2022-12-15 Wilder Soliz [facility] ity of 14:42:[address] [place] [facility] POC GLUCOSE SCREEN 2022-12-15 Ordaz, [facility] of 13:19:[address] [place] [facility] POC GLUCOSE SCREEN 2022-12-15 Ordaz, [facility] of 12:12:[address] [place] [facility] BASIC METABOLIC PANEL, 2022-12-15 Mana Powersit y of CALCIUM TOTAL 09:44:[address] [place] [facility] MAGNESIUM LEVEL 2022-12-15 Mana Powers [facility] of 09:44:[address] [place] [facility] PHOSPHORUS LEVEL 2022-12-15 Mana Powers [facility] 09:44:[address] [place] [facility] COMPLETE BLOOD COUNT W/ 2022-12-15 Mana Powers ty of DIFFERENTIAL 09:44:[address] [place] [facility] GLUCOSE LEVEL 2022-12-15 Mana Powers [facility] of 09:44:[address] [place] [facility] BLOOD UREA NITROGEN 2022-12-15 Mana Powers o f 09:44:[address] [place] [facility] ELECTROLYTE PANEL 2022-12-15 Mana Powers [facility] 09:44:[address] [place] [address] [address] [facility] [facility] SERUM CREATININE 2022-12-15 Mana Powers [facility] of 09:44:[address] [place] [facility] .GLOMERULAR FILTRATION RATE 2022-12-15 Mana Powers ersity of 09:44:[address] [place] [facility] CALCIUM LEVEL TOTAL 2022-12-15 Mana Powers o f 09:44:00 [place] MD Liane olivier [facility] Results CBC 2022-12-15 [facility] of 09:44:00 [place] MD Liane olivier [facility] MANUAL DIFFERENTIAL 2022-12-15 [facility] f 09:44:00 [place] [facility] POC GLUCOSE SCREEN 2022-12-15 ChristinaMontana [facility] of 08:28:00 [place] MD Liane olivier [facility] POC GLUCOSE SCREEN 2022-12-15 ChristinaMontana [facility] of 04:04:00 [place] [facility] POC GLUCOSE SCREEN 2022-12-14 Coreyphelps healthMontana [facility] of 23:26:00 [place] MD Liane olivier [facility] POC GLUCOSE SCREEN 2022-12-14 [facility]Miller [facility] Hospital[facility] of 22:14:00 [place] [facility] [place] MODIFIED BARIUM SWALLOW W 2022-12-14 CoreyMiller [facility]'s Hospitaljules [facility] of SPEECH 20:37:56 [place] [facility] POC GLUCOSE SCREEN 2022-12-14 ChristinaMontana [facility] of 18:08:[address] [place] [facility] GENERAL LABORATORY ADD ON 2022-12-14 Travis Lopez [facility] versity of TEST 14:03:00 [place] [facility] POC GLUCOSE SCREEN 2022-12-14 ChristinaMontana [facility] of 13:25:00 [place] MD Liane olivier [facility] POC GLUCOSE SCREEN 2022-12-14 Derrick Gill [facility] of 11:55:00 [place] MD Rob [facility] BASIC METABOLIC PANEL, 2022-12-14 Mana Powers [facility] of CALCIUM TOTAL 10:46:00 [place] MD Liane olivier [facility] MAGNESIUM LEVEL 2022-12-14 Mana Powers [facility] of 10:46:00 [place] [facility] PHOSPHORUS LEVEL 2022-12-14 Mana Powers [facility] of 10:46:[address] [place] [facility] COMPLETE BLOOD COUNT W/ 2022-12-14 Mana Powers ty of DIFFERENTIAL 10:46:00 [place] [facility] GLUCOSE LEVEL 2022-12-14 [facility] of 10:46:00 [place] [facility] BLOOD UREA NITROGEN 2022-12-14 [facility] o f 10:46:00 [place] MD Carreon soy [facility] ELECTROLYTE PANEL 2022-12-14 [facility] of 10:46:00 [place] [facility] soy [facility] SERUM CREATININE 2022-12-14 [facility] of 10:46:00 [place] [facility] soy [facility] .GLOMERULAR FILTRATION RATE 2022-12-14 [facility] ersity of 10:46:[address] [place] [facility] CALCIUM LEVEL TOTAL 2022-12-14 [facility] o f 10:46:[address] [place] [facility] Results CBC 2022-12-14 [facility] of 10:46:[address] [place] [facility] MANUAL DIFFERENTIAL 2022-12-14 [facility] o f 10:46:00 [place] [facility] ALBUMIN LEVEL 2022-12-14 ChristinaTrista BoyleNov[facility] of 10:46:[address] [place] [facility] ALKALINE PHOSPHATASE 2022-12-14 Trista LopezCritical access hospital ty of 10:46:00 [place] [facility] ALANINE AMINOTRANSFERASE 2022-12-14 [facility] of 10:46:[address] [place] [facility] ASPARTATE AMINOTRANSFERASE 2022-12-14 Travis Lopez iversity of 10:46:00 [place] MD Rob [facility] TOTAL PROTEIN 2022-12-14 [facility] of 10:46:[address] [place] [facility] FRACTIONATED BILIRUBIN 2022-12-14 Trista LopezMission Hospitaler sity of 10:46:00 [place] MD Rob [facility] POC GLUCOSE SCREEN 2022-12-14 [facility]Nov[facility] of 07:36:00 [place] [facility] POC GLUCOSE SCREEN 2022-12-14 [facility]Nov[facility] of 03:56:00 [place] [facility] POC GLUCOSE SCREEN 2022-12-14 [facility]Miller [facility] Hospital[facility] of 00:31:00 [place] [facility] POC GLUCOSE SCREEN 2022-12-13 [facility] of 19:24:00 [place] [facility] POC GLUCOSE SCREEN 2022-12-13 [facility] of 14:02:00 [place] [facility] soy [facility] POC GLUCOSE SCREEN 2022-12-13 [facility] of 11:58:00 [place] [facility] soy [facility] POC GLUCOSE SCREEN 2022-12-13 [facility] of 09:24:[address] [place] [facility] BASIC METABOLIC PANEL, 2022-12-13 Mana Powersit y of CALCIUM TOTAL 09:12:[address] [place] [facility] MAGNESIUM LEVEL 2022-12-13 Mana Powers [facility] of 09:12:[address] [place] [facility] PHOSPHORUS LEVEL 2022-12-13 Mana Powers [facility] of 09:12:[address] [place] [facility] COMPLETE BLOOD COUNT W/ 2022-12-13 Mana Powers ty of DIFFERENTIAL 09:12:[address] [place] [facility] GLUCOSE LEVEL 2022-12-13 Mana Powers [facility] of 09:12:[address] [place] [facility] BLOOD UREA NITROGEN 2022-12-13 Mana Powers [facility] o f 09:12:[address] [place] [facility] ELECTROLYTE PANEL 2022-12-13 Mana Powers [facility] of 09:12:[address] [place] [facility] SERUM CREATININE 2022-12-13 Mana Powers [facility] of 09:12:[address] [place] [facility] .GLOMERULAR FILTRATION RATE 2022-12-13 Mana Powers [facility] ersity of 09:12:[address] [place] [facility] CALCIUM LEVEL TOTAL 2022-12-13 Mana Powers o f 09:12:[address] [place] [facility] Results CBC 2022-12-13 Mana Powers [facility] of 09:12:[address] [place] [facility] MANUAL DIFFERENTIAL 2022-12-13 Mana Powers o f 09:12:[address] [place] [facility] POC GLUCOSE SCREEN 2022-12-13 [facility]Miller [facility] Hospitalj[facility] of 03:43:[address] [place] [facility] POC GLUCOSE SCREEN 2022-12-13 [facility] Hospital[facility] of 00:16:[address] [place] [facility] POC GLUCOSE SCREEN 2022-12-12 [facility] of 18:52:[address] [place] [facility] POC GLUCOSE SCREEN 2022-12-12 [facility] of 13:47:[address] [place] [facility] POC GLUCOSE SCREEN 2022-12-12 [facility] of 11:52:00 [facility] BASIC METABOLIC PANEL, 2022-12-12 Mana Powersit y of CALCIUM TOTAL 10:30:[address] [place] [facility] MAGNESIUM LEVEL 2022-12-12 Mana Powers [facility] of 10:30:00 [facility] PHOSPHORUS LEVEL 2022-12-12 Mana Powers [facility] of 10:30:[address] [place] [facility] COMPLETE BLOOD COUNT W/ 2022-12-12 Mana Powers ty of DIFFERENTIAL 10:30:[address] [place] [facility] GLUCOSE LEVEL 2022-12-12 Mana Powers [facility] of 10:30:00 [facility] BLOOD UREA NITROGEN 2022-12-12 Mana Powers o f 10:30:[address] [place] [facility] ELECTROLYTE PANEL 2022-12-12 Mana Powers [facility] of 10:30:00 [facility] SERUM CREATININE 2022-12-12 Mana Powers [facility] of 10:30:00 [facility] .GLOMERULAR FILTRATION RATE 2022-12-12 Mana Powers [facility] ersity of 10:30:00 [facility] CALCIUM LEVEL TOTAL 2022-12-12 Mana Powers o f 10:30:00 [facility] Results CBC 2022-12-12 [facility] of 10:30:00 [place] MD Liane olivier [facility] Center MANUAL DIFFERENTIAL 2022-12-12 [facility] o f 10:30:00 [place] MD Liane olivier [facility] Center POC GLUCOSE SCREEN 2022-12-12 [facility]Miller [facility] Hospital[facility] of 08:06:00 [place] [facility] Center POC GLUCOSE SCREEN 2022-12-12 [facility] of 04:01:00 [place] MD Liane olivier [facility] LACTIC ACID, VENOUS 2022-12-12 [facility] y of 03:50:00 [place] [facility] VENOUS BLOOD GAS 2022-12-12 [facility] o f 00:21:00 [place] Liane olivier [facility] LIPASE LEVEL 2022-12-12 [facility] of 00:21:00 [place] Liane olivier [facility] POC GLUCOSE SCREEN 2022-12-12 [facility]Critical access hospital of 00:10:00 [place] MD Liane olivier [facility] GENERAL LABORATORY ADD ON 2022-12-11 [facility] versity of TEST 23:39:00 [place] MD Liane olivier [facility] KETONE BODIES QUALITATIVE 2022-12-11 Waleska Salinas Unive rsity of 23:19:00 [place] MD Liane olivier [facility] POC GLUCOSE SCREEN 2022-12-11 [facility] of 22:51:00 [place] MD Liane olivier [facility] LACTIC ACID, VENOUS 2022-12-11 [facility] y of 22:33:00 [place] MD Liane olivier [facility] ELECTROLYTE PANEL 2022-12-11 Waleska Salinas [facility] of 22:33:00 [place] MD Liane olivier [facility] LIPASE LEVEL 2022-12-11 Waleska Salinsa [facility] of 22:33:00 [place] MD Liane olivier [facility] POC CRITICAL 2022-12-11 [facility]Miller [facility] Hospital[facility] of 21:34:00 [place] MD Liane olivier [facility] Center POC GLUCOSE SCREEN 2022-12-11 Coreyphelps healthPeteCanonsburg Hospital of 21:34:[address] [place] [facility] POC CRITICAL 2022-12-11 [facility] of 20:33:[address] [place] [facility] POC GLUCOSE SCREEN 2022-12-11 [facility]Critical access hospital of 20:33:[address] [place] [facility] POC GLUCOSE SCREEN 2022-12-11 [facility] of 18:35:[address] [place] [facility] POC GLUCOSE SCREEN 2022-12-11 [facility] of 14:14:00 [facility] LACTIC ACID, VENOUS 2022-12-11 [facility] o f 10:37:59 [facility] BASIC METABOLIC PANEL, 2022-12-11 Mana Powers [facility] y of CALCIUM TOTAL 10:30:00 [facility] MAGNESIUM LEVEL 2022-12-11 Mana Powers [facility] of 10:30:00 [facility] PHOSPHORUS LEVEL 2022-12-11 Mana Powers [facility] of 10:30:00 [facility] COMPLETE BLOOD COUNT W/ 2022-12-11 Mana Powers [facility] ty of DIFFERENTIAL 10:30:[address] [place] [facility] GLUCOSE LEVEL 2022-12-11 Irina Houston [facility] of 10:30:00 [facility] BLOOD UREA NITROGEN 2022-12-11 Irina Houston [facility] of 10:30:[address] [place] [facility] ELECTROLYTE PANEL 2022-12-11 Irina Houston [facility] of 10:30:[address] [place] [facility] SERUM CREATININE 2022-12-11 Irina Houston [facility] of 10:30:00 [facility] .GLOMERULAR FILTRATION RATE 2022-12-11 Irina Houston Uni versity of 10:30:00 [facility] CALCIUM LEVEL TOTAL 2022-12-11 Irina Houston [facility] of 10:30:00 [facility] Results CBC 2022-12-11 Irina Houston [facility] of 10:30:00 [facility] Center MANUAL DIFFERENTIAL 2022-12-11 Irina Houston [facility] of 10:30:00 [place] MD Liane olivier [facility] Center POC GLUCOSE SCREEN 2022-12-11 [facility] [address] 07:20:00 Jaycee [place] MD Liane olivier [facility] Center POC GLUCOSE SCREEN 2022-12-11 [facility] [address] 04:00:00 Jaycee [place] MD Liane olivier [facility] Center POC GLUCOSE SCREEN 2022-12-11 [facility] [address] 00:29:00 ArlenJasmina [place] [facility] Center POC GLUCOSE SCREEN 2022-12-10 [facility] [address] 23:20:00 ArlenJasmina [place] [facility] CT HEAD WO CONTRAST 2022-12-10 [facility] o f 21:21:00 [facility] [place] [facility] POC GLUCOSE SCREEN 2022-12-10 [facility] of 19:45:00 ArlenJasmina [place] [facility] P[facility] GLUCOSE SCREEN 2022-12-10 [facility] o f 17:35:00 [place] MD Carreon soy [facility] Center POC GLUCOSE SCREEN 2022-12-10 Mer Milian [facility] of 13:30:00 [place] MD Liane olivier [facility] URINE CULTURE 2022-12-10 Tammy Mike [facility] of 12:13:00 [place] [facility] URINALYSIS WITH MICROSCOPIC 2022-12-10 Tammy Mike [facility] ersity of IF INDICATED 12:13:00 [place] MD Rob [facility] BASIC METABOLIC PANEL, 2022-12-10 Mana Powersit y of CALCIUM TOTAL 11:13:00 [place] MD Rob [facility] MAGNESIUM LEVEL 2022-12-10 Mana Powers [facility] of 11:13:00 [place] MD Rob [facility] PHOSPHORUS LEVEL 2022-12-10 Mana Powers [facility] of 11:13:00 [place] [facility] COMPLETE BLOOD COUNT W/ 2022-12-10 Mana Powers ty of DIFFERENTIAL 11:13:00 [place] Liane olivier [facility] HEMOGLOBIN A1C 2022-12-10 Irina Houston [facility] of 11:13:[address] [place] [facility] GLUCOSE LEVEL 2022-12-10 CelsoIrina olivier [facility] of 11:13:[address] [place] [facility] BLOOD UREA NITROGEN 2022-12-10 Irina Houston [facility] of 11:13:[address] [place] [facility] ELECTROLYTE PANEL 2022-12-10 CelsoIrina olivier [facility] of 11:13:[address] [place] [facility] SERUM CREATININE 2022-12-10 CelsoIrina olivier [facility] of 11:13:[address] [place] [facility] .GLOMERULAR FILTRATION RATE 2022-12-10 Irina Houston [facility] versity of 11:13:[address] [place] [facility] CALCIUM LEVEL TOTAL 2022-12-10 Irina Houston [facility] of 11:13:[address] [place] [facility] Results CBC 2022-12-10 Irina Houston [facility] of 11:13:[address] [place] [facility] MANUAL DIFFERENTIAL 2022-12-10 CelsoIrina olivier [facility] of 11:13:[address] [place] [facility] POC GLUCOSE SCREEN 2022-12-10 Mer Milian [facility] of 07:38:[address] [place] [facility] POC GLUCOSE SCREEN 2022-12-10 Mer Milian [facility] of 05:18:[address] [place] [facility] POC VENOUS BLOOD GAS + 2022-12-10 Roberto Carlos Walsh y of LACTATE 03:36:[address] [place] [facility] COVID-19 (SARS-COV-2) PCR - 2022-12-10 Roberto Carlos Walsh [facility] ersity of ASYMPTOMATIC - LT 00:01:00 [place] [facility] AMMONIA LEVEL 2022-12-10 TanviTammy [facility] of 00:01:[address] [place] [facility] COMPLETE BLOOD COUNT W/ 2022-12-10 Tammy Mike ty of DIFFERENTIAL 00:01:[address] [place] [facility] COMPREHENSIVE METABOLIC PANEL 2022-12-10 Tammy Mike iversity of 00:01:[address] [place] [facility] MAGNESIUM LEVEL 2022-12-10 [facility] of 00:01:00 [place] [facility] PHOSPHORUS LEVEL 2022-12-10 [facility] of 00:01:[address] [place] [facility] PROTHROMBIN TIME 2022-12-10 [facility] of 00:01:00 [place] [facility] soy [facility] APTT 2022-12-10 [facility] of 00:01:[address] [place] [facility] LACTATE DEHYDROGENASE 2022-12-10 [facility] of 00:01:[address] [place] [facility] Results CBC 2022-12-10 [facility] of 00:01:[address] [place] [facility] MANUAL DIFFERENTIAL 2022-12-10 [facility] o f 00:01:[address] [place] [facility] GLUCOSE LEVEL 2022-12-10 [facility] of 00:01:[address] [place] [facility] BLOOD UREA NITROGEN 2022-12-10 [facility] o f 00:01:[address] [place] [facility] ELECTROLYTE PANEL 2022-12-10 [facility] of 00:01:[address] [place] [facility] SERUM CREATININE 2022-12-10 [facility] of 00:01:[address] [place] [facility] .GLOMERULAR FILTRATION RATE 2022-12-10 [facility] ersity of 00:01:[address] [place] [facility] CALCIUM LEVEL TOTAL 2022-12-10 [facility] o f 00:01:[address] [place] [facility] ALBUMIN LEVEL 2022-12-10 [facility] of 00:01:[address] [place] [facility] ALKALINE PHOSPHATASE 2022-12-10 [facility] of 00:01:[address] [place] [facility] ALANINE AMINOTRANSFERASE 2022-12-10 [facility] ity of 00:01:[address] [place] [facility] ASPARTATE AMINOTRANSFERASE 2022-12-10 [facility] rs[facility] of 00:01:[address] [place] [facility] TOTAL PROTEIN 2022-12-10 [facility] of 00:01:00 [place] MD Liane olivier [facility] FRACTIONATED BILIRUBIN 2022-12-10 [facility] y of 00:01:00 [place] MD Liane olivier [facility] HP MDA CHRISTINE MUTATION 2022-12-04 Lorena Hdez Uni versity of ANALYSIS PRECISION PANEL 16:56:00 [facility] HP SOLID TUMOR GENOMIC 2022-12-04 Lorena Hdez U niversity of ASSAY FUSIONS 2018 16:56:00 Bere Portillo rson INTERPRETATION AND REPORT [facility] HP MOLECULAR BLOOD COLLECTION 2022-12-04 Lorena Hdez [facility] of 16:56:00 [place] MD Liane olivier [facility] MRI SKULL BASE WITH AND 2022-11-30 Lorena Hdez Uni versity of WITHOUT CONTRAST 17:12:54 Bere Carreon [facility] PETCT CONTRAST ENHANCED 2022-11-27 [employer] [facility] ty of INITIAL TREATMENT STRATEGY 21:57:06 Ashleigh Blackburn MD [facility] POC GLUCOSE SCREEN 2022-11-27 [facility] of 19:06:00 Ashleigh [place] [facility] POC GLUCOSE SCREEN 2022-11-27 [facility] of 18:29:00 Ashleigh [place] [facility] NGS BLOOD CONTROL 2022-11-26 Lorena Hdez [facility] sity of 19:07:00 [place] MD Rob [facility] COMPLETE BLOOD COUNT W/ 2022-11-26 Lorena Hdez Uni versity of DIFFERENTIAL 19:07:00 Bere olivier [facility] COMPREHENSIVE METABOLIC PANEL 2022-11-26 Lorena Hdez [facility] of 19:07:00 Bere olivier [facility] FREE THYROXINE 2022-11-26 Lorena Hdez [facility] of 19:07:00 Bere olivier [facility] LACTATE DEHYDROGENASE 2022-11-26 Lore[facility] Hdez [facility] rsity of 19:07:00 Bere olivier [facility] MAGNESIUM LEVEL 2022-11-26 Lorena Hdez [facility] of 19:07:00 Bere olivier [facility] PHOSPHORUS LEVEL 2022-11-26 [facility] of 19:07:00 [place] Liane olivier [facility] URIC ACID 2022-11-26 [facility] of 19:07:00 [place] [facility] soy [facility] VITAMIN D 25 HYDROXY LEVEL 2022-11-26 [facility] of 19:07:00 [place] [facility] soy [facility] THYROID STIMULATING HORMONE 2022-11-26 [facility] of 19:07:00 [place] [facility] APTT 2022-11-26 [facility] of 19:07:00 [place] [facility] soy [facility] PROTHROMBIN TIME 2022-11-26 [facility] of 19:07:[address] [place] [facility] Results CBC 2022-11-26 [facility] of 19:07:00 [place] [facility] soy [facility] MANUAL DIFFERENTIAL 2022-11-26 [facility] 19:[facility]00 [place] [facility] GLUCOSE LEVEL 2022-11-26 [facility] of 19:07:[address] [place] [facility] BLOOD UREA NITROGEN 2022-11-26 [facility] ity of 19:07:00 [place] [facility] ELECTROLYTE PANEL 2022-11-26 [facility] [facility] [place] [facility] SERUM CREATININE 2022-11-26 [facility] of 19:07:[address] [place] [facility] .GLOMERULAR FILTRATION RATE 2022-11-26 [facility] of 19:07:[address] [place] [facility] CALCIUM LEVEL TOTAL 2022-11-26 [facility] it of 19:07:[address] [place] [facility] ALBUMIN LEVEL 2022-11-26 [facility] of 19:07:[address] [place] [facility] ALKALINE PHOSPHATASE 2022-11-26 [facility] sity of 19:07:[address] [place] [facility] ALANINE AMINOTRANSFERASE 2022-11-26 Lorena Hdez Un iversity of 19:07:00 [place] MD Liane olivier [facility] ASPARTATE AMINOTRANSFERASE 2022-11-26 [facility] 19:07:00 [place] Liane olivier [facility] TOTAL PROTEIN 2022-11-26 Lorena Hdez [facility] of 19:07:00 [place] Liane olivier [facility] FRACTIONATED BILIRUBIN 2022-11-26 [facility] of 19:07:00 [place] Liane olivier [facility] AP NTRK1 FUSION ANALYSIS 2022-11-26 Simona Hdezfer [facility] of MATERIAL REQUEST 18:43:02 [place] MD Carreon [facility] ANA CRISTINA GRIFFIN ALK MUTATION ANALAYSIS 2022-11-26 Lorena Hdez [facility] of MATERIAL REQUEST 18:43:02 [place] MD Carreon [facility] ANA CRISTINA GRIFFIN NTRK3 FUSION ANALYSIS 2022-11-26 HdezSimonaLorena [facility] of MATERIAL REQUEST 18:43:02 Bere Carreon [facility] ANA CRISTINA GRIFFIN EGFR MUTATION MATERIAL 2022-11-26 [facility] of REQUEST 18:43:02 [place] [facility] ANA CRISTINA GRIFFIN ERBB2 MUTATION 2022-11-26 [facility] ANALAYSIS MATERIAL REQUEST 18:43:02 [facility] ANA CRISTINA GRIFFIN MTOR MATERIAL REQUEST 2022-11-26 Simona [facility]dezfer [facility] of 18:43:02 [place] [facility] ANA CRISTINA GRIFFIN PTEN MUTATION MATERIAL 2022-11-26 Lorena Hdez [facility] of REQUEST 18:43:02 Bere olivier [facility] AP IHC PD-L1 MATERIAL REQUEST 2022-11-26 Lorena Hdez [facility] of 18:43:02 [place] [facility] AP IHC HER2/MELISSA MATERIAL 2022-11-26 Lorena Hdez Un iversity of REQUEST 18:43:02 [place] MD Rob [facility] HEPATITIS C VIRUS AB SCREEN 2022-11-17 Red Posada [facility] W/REFLEX HCV PCR 18:11:[address] [facility] COMPREHENSIVE METABOLIC PANEL 2022-11-17 Red Posada [facility] 18:11:00 [place] MD [facility] COMPLETE BLOOD COUNT W/ 2022-11-17 Red Posada [facility] ersity of DIFFERENTIAL 18:11:[address] [place] [facility] APTT 2022-11-17 Red Posada [facility] o f 18:11:[address] [place] [facility] PROTHROMBIN TIME 2022-11-17 Red Posada [facility] of 18:11:[address] [place] [facility] CORTISOL 2022-11-17 Antonella [facility] f 18:11:[address] [place] [facility] ADRENOCORTICOTROPIC HORMONE 2022-11-17 Red Posada [facility] of 18:11:[address] [place] [facility] ESTRADIOL LEVEL 2022-11-17 [facility] 18:11:[address] [place] [facility] TESTOSTERONE LEVEL 2022-11-17 Red [facility] of 18:11:[address] [place] [facility] FOLLICLE STIMULATING HORMONE 2022-11-17 Red Posada [facility] of LEVEL 18:11:[address] [place] [facility] LUTEINIZING HORMONE 2022-11-17 Red Pos[facility] of 18:11:[address] [place] [facility] THYROID STIMULATING HORMONE 2022-11-17 Red Posada [facility] of 18:11:[address] [place] [facility] FREE THYROXINE 2022-11-17 Red Posada [facility] o f 18:11:[address] [place] [facility] TOTAL T3 2022-11-17 Red Posada [facility] o f 18:11:[address] [place] [facility] INSULIN LIKE GROWTH FACTOR 1 2022-11-17 Red Posada [facility] of 18:11:[address] [place] [facility] PROLACTIN 2022-11-17 Antonella [facility] f 18:11:[address] [place] [facility] GLUCOSE LEVEL 2022-11-17 Red Posada [facility] o f 18:11:00 [place] [facility] BLOOD UREA NITROGEN 2022-11-17 [facility] 18:11:[address] [place] [facility] ELECTROLYTE PANEL 2022-11-17 Red Posada [facility] of 18:11:[address] [place] [facility] SERUM CREATININE 2022-11-17 Red Posada [facility] of 18:11:[address] [place] [facility] .GLOMERULAR FILTRATION RATE 2022-11-17 Red Posada [facility] of 18:11:[address] [place] [facility] CALCIUM LEVEL TOTAL 2022-11-17 Red Posada [facility] ty of 18:11:[address] [place] [facility] ALBUMIN LEVEL 2022-11-17 Red Posada [facility] o f 18:11:[address] [place] [facility] ALKALINE PHOSPHATASE 2022-11-17 Red Posada [facility] ity of 18:11:[address] [place] [facility] ALANINE AMINOTRANSFERASE 2022-11-17 Red Posada Uni versity of 18:11:[address] [place] [facility] ASPARTATE AMINOTRANSFERASE 2022-11-17 Red Posada [facility] of 18:11:[address] [place] [facility] TOTAL PROTEIN 2022-11-17 Red Posada [facility] o f 18:11:[address] [place] [facility] FRACTIONATED BILIRUBIN 2022-11-17 Red Posada Unive rsity of 18:11:[address] [place] [facility] Results CBC 2022-11-17 Red Posada [facility] o f 18:11:[address] [place] [facility] MANUAL DIFFERENTIAL 2022-11-17 Red Posada [facility] ty of 18:11:[address] [place] [facility] PATHOLOGY OUTSIDE 2022-10-16 Alexa Alvarez [facility] of INTERPRETATION 00:00:[address] [place] 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 REPORT OF PROCEDURE - 2022-01-09 Mason, Dewayne Jaden [facility] ENDOSCOPY URL 12:37:11 [facility] REPORT OF PROCEDURE - 2022-01-09 Mason, Dewayne Jaden [facility] ENDOS[facility] URL 12:36:24 [facility] TISSUE EXAM 2022-01-09 Monica Wisena [address] 11:31:00 [facility] ESOPHAGEAL BALLOON 2022-01-09 Monica Wisena Jaden [facility] PROVOCATION STUDY 10:53:00 [facility] COLONOSCOPY, WITH POLYPECTOMY 2022-01-[address] [facility] 10:53:00 [facility] ENDOSCOPY, UPPER GI TRACT, 2022-01-[address] [facility] WITH BIOPSY 10:53:00 [facility] POCT-GLUCOSE METER 2022-01-[address] [facility] 09:59:00 [facility] SARS-COV2/RT-PCR (HS & REF 2022-01-09 [address] [facility] LABS) 07:55:00 [facility] MANOMETRY, ANORECTAL 2021-12-04 Dewayne Wise J[address] [facility] 09:24:00 [facility] Sleeve resection of stomach 2017-09-01 Dillon Seay 00:00:00 Laparoscopic adjustable 2013-11-01 [facility] gastric banding<sup>1</sup> 06:00:00 Removal of gastric band 2013-11-01 [facility] 00:00:00 Abdominal hysterectomy 2011-11-01 [facility] 00:00:00 Laparoscopic adjustable 2010-11-01 [facility] gastric banding 00:00:00 Appendectomy 2009-11-01 Yossi Seay 00:00:00 Cholecystectomy 2009-11-01 Yossi Seay 00:00:00 Knee joint operation 2006-11-01 Yossi macdonald 06:00:00 Shoulder joint operations 2006-11-01 Maynor Tsang 06:00:00 section 1984-11-01 Yossi Montgomery n 00:00:00 Knee Surgery [facility] Procedure on Shoulder [facility] Maintenance of Gastric Band [facility] Gallbladder Surgery [facility] Appendectomy [facility] Plan of Care Planned Activity Planned Date Details Comments Source Future Scheduled 2032-01-10 Screening for malignant [facility] Test 00:00:00 neoplasm of colon Medical Ce nter (procedure) [code = 880380824] Future Scheduled 2032-01-10 Screening for malignant [facility] Test 00:00:00 neoplasm of colon Medical Ce nter (procedure) [code = [id number]] Future Scheduled 2032-01-10 Screening for malignant [facility] 00:00:00 neoplasm of colon Medical Ce nter (procedure) [code = 539011167] Future Scheduled 2032-01-10 Screening for malignant [facility] 00:00:00 neoplasm of colon Medical Ce nter (procedure) [code = 788882351] Future Scheduled 2032-01-10 Screening for malignant [facility] Test 00:00:00 neoplasm of colon Medical Ce nter (procedure) [code = 675958468] Future Scheduled 2032-01-10 Screening for malignant [facility] 00:00:00 neoplasm of colon Medical Ce nter (procedure) [code = 045874578] Future Scheduled 2032-01-10 Screening for malignant [facility] 00:00:00 neoplasm of colon Medical Ce nter (procedure) [code = 426503913] Future Scheduled 2032-01-10 Screening for malignant [facility] 00:00:00 neoplasm of colon Medical Ce nter (procedure) [code = 105163175] Future Scheduled 2032-01-10 Screening for malignant [facility] 00:00:00 neoplasm of colon Medical Ce nter (procedure) [code = 189528870] Future Scheduled 2032-01-10 Screening for malignant [facility] 00:00:00 neoplasm of colon Medical Ce nter (procedure) [code = 839123980] Future Scheduled 2032-01-10 Screening for malignant [facility] 00:00:00 neoplasm of colon Medical Ce nter (procedure) [code = 028228891] Future Scheduled 2032-01-10 Screening for malignant [facility] 00:00:00 neoplasm of colon Medical Ce nter (procedure) [code = [id number]] Future Scheduled 2032-01-10 Screening for malignant [facility] Test 00:00:00 neoplasm of colon Medical Ce nter (procedure) [code = 282532058] Future Scheduled 2032-01-10 Screening for malignant [facility] 00:00:00 neoplasm of colon Medical Ce nter (procedure) [code = [id number]] Future Scheduled 2032-01-10 Screening for malignant [facility] 00:00:00 neoplasm of colon Medical Ce nter (procedure) [code = 042842987] Future Scheduled 2032-01-10 Screening for malignant [facility] 00:00:00 neoplasm of colon Medical Ce nter (procedure) [code = 830431700] Future Scheduled 2032-01-10 Screening for malignant [facility] 00:00:00 neoplasm of colon Medical Ce nter (procedure) [code = 511997166] Future Scheduled 2032-01-10 Screening for malignant [facility] 00:00:00 neoplasm of colon Medical Ce nter (procedure) [code = 811411091] Future Scheduled 2032-01-10 Screening for malignant [facility] 00:00:00 neoplasm of colon Medical Ce nter (procedure) [code = 950054856] Future Scheduled 2032-01-10 Screening for malignant [facility] 00:00:00 neoplasm of colon Medical Ce nter (procedure) [code = 989659706] Future Scheduled 2032-01-10 Screening for malignant [facility] 00:00:00 neoplasm of colon Medical Ce nter (procedure) [code = 663767476] Future Scheduled 2032-01-10 Screening for malignant [facility] 00:00:00 neoplasm of colon Medical Ce nter (procedure) [code = 376797442] Future Scheduled 2032-01-10 Screening for malignant [facility] 00:00:00 neoplasm of colon Medical Ce nter (procedure) [code = 858539207] Future Scheduled 2032-01-10 Screening for malignant [facility] 00:00:00 neoplasm of colon Medical Ce nter (procedure) [code = 959089901] Future Scheduled 2032-01-10 Screening for malignant [facility] 00:00:00 neoplasm of colon Medical Ce nter (procedure) [code = 572161822] Future Scheduled 2032-01-10 Screening for malignant [facility] 00:00:00 neoplasm of colon Medical Ce nter (procedure) [code = 194217268] Future Scheduled 2032-01-10 Screening for malignant [facility] 00:00:00 neoplasm of colon Medical Ce nter (procedure) [code = 049991742] Future Scheduled 2032-01-10 Screening for malignant [facility] 00:00:00 neoplasm of colon Medical Ce nter (procedure) [code = 876839383] Future Scheduled 2032-01-10 Screening for malignant [facility] 00:00:00 neoplasm of colon Medical Ce nter (procedure) [code = 422520006] Future Scheduled 2032-01-10 Screening for malignant [facility] 00:00:00 neoplasm of colon Medical Ce nter (procedure) [code = 969041497] Future Scheduled 2032-01-10 Screening for malignant [facility] 00:00:00 neoplasm of colon Medical Ce nter (procedure) [code = 483019760] Future Scheduled 2032-01-10 Screening for malignant [facility] 00:00:00 neoplasm of colon Medical Ce nter (procedure) [code = 674646739] Future Scheduled 2032-01-10 Screening for malignant [facility] 00:00:00 neoplasm of colon Medical Ce nter (procedure) [code = 957072749] Future Scheduled 2032-01-10 Screening for malignant [facility] 00:00:00 neoplasm of colon Medical Ce nter (procedure) [code = 701040829] Future Scheduled 2023-07-02 Influenza Vaccine (#1) [facility] 00:[facility]00 [code = Influenza Medical Ce nter Vaccine (#1)] Future Scheduled 2023-07-[address] [...] Medical Ce nter Vaccine (#1)] Future Scheduled 2023-07-02 Influenza Vaccine (#1) [facility] 00:00:00 [code = Influenza Medical Ce nter Vaccine (#1)] Future Scheduled 2023-07-02 Influenza Vaccine (#1) [facility] 00:00:00 [code = Influenza Medical Ce nter Vaccine (#1)] Future Scheduled 2023-05-18 COVID-19 Vaccination (4 [facility] of Test 09:42:41 - Booster for Moderna [place] series) [code = COVID-19 [facility] Center Vaccination (4 - Booster for Moderna series)] Future Scheduled 2023-05-18 COVID-19 Vaccination (4 [facility] Test 09:42:41 - Booster for Moderna [place] [facility] series) [code = COVID-19 [facility] Vaccination (4 - Booster for Moderna series)] Future Scheduled 2023-05-18 COVID-19 Vaccination (4 [facility] Test 09:42:41 - Booster for Moderna [place] series) [code = COVID-19 [facility] Vaccination (4 - Booster for Moderna series)] Future Scheduled 2023-04-13 COVID-19 Vaccination (4 [facility] Test 10:02:18 - Booster for Moderna [place] series) [code = COVID-19 [facility] Vaccination (4 - Booster for Moderna series)] Future Scheduled 2023-03-30 COVID-19 Vaccination (4 [facility] Test 11:51:04 - Booster for Moderna [place] series) [code = COVID-19 [facility] Center Vaccination (4 - Booster for Moderna series)] Future Scheduled 2023-03-19 COVID-19 Vaccination (4 [facility] Test 08:32:18 - Booster for Moderna [place] series) [code = COVID-19 [facility] Center Vaccination (4 - Booster for Moderna series)] Future Scheduled 2023-03-12 COVID-19 Vaccination (4 [facility] Test 07:01:22 - Booster for Moderna [place] series) [code = COVID-19 Can cer Center Vaccination (4 - Booster for Moderna series)] Future Scheduled 2023-01-[address] [facility] 00:00:00 Counseling and Screening Med ical Center (12+) [code = Tobacco Cessation Counseling and Screening (12+)] Future Scheduled 2023-01-[address] [facility] 00:00:00 Counseling and Screening Med ical Center (12+) [code = Tobacco Cessation Counseling and Screening (12+)] Future Scheduled 2023-01-[address] [facility] 00:00:00 Counseling and Screening Med ical Center (12+) [code = Tobacco Cessation Counseling and Screening (12+)] Future Scheduled 2023-01-[address] [facility] 00:00:00 Counseling and Screening Med ical Center (12+) [code = Tobacco Cessation Counseling and Screening (12+)] Future Scheduled 2023-01-[address] [facility] 00:00:00 Counseling and Screening Med ical Center (12+) [code = Tobacco Cessation Counseling and Screening (12+)] Future Scheduled 2023-01-[address] [facility] 00:00:00 Counseling and Screening Med ical Center (12+) [code = Tobacco Cessation Counseling and Screening (12+)] Future Scheduled 2023-01-[address] [facility] 00:00:00 Counseling and Screening Med ical Center (12+) [code = Tobacco Cessation Counseling and Screening (12+)] Future Scheduled 2023-01-[address] [facility] 00:00:00 Counseling and Screening Med ical Center (12+) [code = Tobacco Cessation Counseling and Screening (12+)] Future Scheduled 2023-01-[address] [facility] 00:00:00 Counseling and Screening Med ical Center (12+) [code = Tobacco Cessation Counseling and Screening (12+)] Future Scheduled 2023-01-[address] [facility] 00:00:00 Counseling and Screening Med ical Center (12+) [code = Tobacco Cessation Counseling and Screening (12+)] Future Scheduled 2023-01-[address] [facility] 00:00:00 Counseling and Screening Med ical Center (12+) [code = Tobacco Cessation Counseling and Screening (12+)] Future Scheduled 2023-01-[address] [facility] 00:00:00 Counseling and Screening Med ical Center (12+) [code = Tobacco Cessation Counseling and Screening (12+)] Future Scheduled 2023-01-[address] [facility] 00:00:00 Counseling and Screening Med ical Center (12+) [code = Tobacco Cessation Counseling and Screening (12+)] Future Scheduled 2023-01-[address] [facility] 00:00:00 Counseling and Screening Med ical Center (12+) [code = Tobacco Cessation Counseling and Screening (12+)] Future Scheduled 2023-01-[address] [facility] 00:00:00 Counseling and Screening Med ical Center (12+) [code = Tobacco Cessation Counseling and Screening (12+)] Future Scheduled 2022-11-[address] [facility] 00:00:00 (12+) [code = DEPRESSION Med ical Center SCREENING (12+)] Future Scheduled 2022-11-[address] [facility] 00:00:00 (12+) [code = DEPRESSION Med ical Center SCREENING (12+)] Future Scheduled 2022-11-[address] [facility] 00:00:00 (12+) [code = DEPRESSION Med ical Center SCREENING (12+)] Future Scheduled 2022-11-[address] [facility] 00:00:00 (12+) [code = DEPRESSION Med ical Center SCREENING (12+)] Future Scheduled 2022-11-[address] [facility] 00:00:00 (12+) [code = DEPRESSION Med ical Center SCREENING (12+)] Future Scheduled 2022-11-[address] [facility] 00:00:00 (12+) [code = DEPRESSION Med ical Center SCREENING (12+)] Future Scheduled 2022-11-[address] [facility] 00:00:00 (12+) [code = DEPRESSION Med ical Center SCREENING (12+)] Future Scheduled 2022-11-[address] [facility] 00:00:00 (12+) [code = DEPRESSION Med ical Center SCREENING (12+)] Future Scheduled 2022-11-[address] [facility] 00:00:00 (12+) [code = DEPRESSION Med ical Center SCREENING (12+)] Future Scheduled 2022-11-[address] [facility] 00:00:00 (12+) [code = DEPRESSION Med ical Center SCREENING (12+)] Future Scheduled 2022-11-[address] [facility] 00:00:00 (12+) [code = DEPRESSION Med ical Center SCREENING (12+)] Future Scheduled 2022-11-[address] [facility] 00:00:00 (12+) [code = DEPRESSION Med ical Center SCREENING (12+)] Future Scheduled 2022-11-[address] [facility] 00:00:00 (12+) [code = DEPRESSION Med ical Center SCREENING (12+)] Future Scheduled 2022-07-02 INFLUENZA VACCINE [facility] (12+) [code = DEPRESSION Med ical Center SCREENING (12+)] Future Scheduled 2021-11-[address] [facility] 00:00:00 (12+) [code = DEPRESSION Med ical Center SCREENING (12+)] Future Scheduled 2021-11-[address] [facility] 00:00:00 (12+) [code = DEPRESSION Med ical Center SCREENING (12+)] Future Scheduled 2021-11-[address] [facility] 00:00:00 (12+) [code = DEPRESSION Med ical Center SCREENING (12+)] Future Scheduled 2021-09-05 COVID-19 VACCINE [...] series)] Future Scheduled 2017 SHINGLES VACCINES ([address] [facility] 00:00:00 2) [code = SHINGLES Medical Center VACCINES (1 of 2)] Future Scheduled 2017 SHINGLES VACCINES ([address] [facility] 00:00:00 2) [code = SHINGLES Medical Center VACCINES (1 of 2)] Future Scheduled 2017 SHINGLES VACCINES ([address] [facility] 00:00:00 2) [code = SHINGLES Medical Center VACCINES (1 of 2)] Future Scheduled 2017 SHINGLES VACCINES ([address] [facility] 00:00:00 2) [code = SHINGLES Medical Center VACCINES (1 of 2)] Future Scheduled 2017 SHINGLES VACCINES ([address] [facility] 00:00:00 2) [code = SHINGLES Medical Center VACCINES (1 of 2)] Future Scheduled 2017 SHINGLES VACCINES ([address] [facility] 00:00:00 2) [code = SHINGLES Medical Center VACCINES (1 of 2)] Future Scheduled 2017 SHINGLES VACCINES ([address] [facility] 00:00:00 2) [code = SHINGLES Medical Center VACCINES (1 of 2)] Future Scheduled 2017 SHINGLES VACCINES ([address] [facility] 00:00:00 2) [code = SHINGLES Medical Center VACCINES (1 of 2)] Future Scheduled 2017 SHINGLES VACCINES ([address] [facility] 00:00:00 2) [code = SHINGLES Medical Center VACCINES (1 of 2)] Future Scheduled 2017 SHINGLES VACCINES ([address] [facility] 00:00:00 2) [code = SHINGLES Medical Center VACCINES (1 of 2)] Future Scheduled 2017 SHINGLES VACCINES ([address] [facility] 00:00:00 2) [code = SHINGLES Medical Center VACCINES (1 of 2)] Future Scheduled 2017 SHINGLES VACCINES ([address] [facility] 00:00:00 2) [code = SHINGLES Medical Center VACCINES (1 of 2)] Future Scheduled 2017 SHINGLES VACCINES ([address] [facility] 00:00:00 2) [code = SHINGLES Medical Center VACCINES (1 of 2)] Future Scheduled 2017 SHINGLES VACCINES ([address] [facility] 00:00:00 2) [code = SHINGLES Medical Center VACCINES (1 of 2)] Future Scheduled 2017 SHINGLES VACCINES ([address] [facility] 00:00:00 2) [code = SHINGLES Medical Center VACCINES (1 of 2)] Future Scheduled 2017 SHINGLES VACCINES (1 of [facility] 00:00:00 2) [facility] 2)] Future Scheduled 2017 SHINGLES VACCINES ([address] [facility] 00:00:00 2) [[facility] (1 of 2)] Future Scheduled 2012 Lipid panel (procedure) [facility] 00:00:00 [code = [id number]] Medical Ce nter Future Scheduled 2012 Lipid panel (procedure) [facility] 00:00:00 [code = 96651485] Medical Ce nter Future Scheduled 2012 Lipid panel (procedure) [facility] 00:00:00 [code = [id number]] Medical Ce nter Future Scheduled 2012 Lipid panel (procedure) [facility] 00:00:00 [code = 65832093] Medical Ce nter Future Scheduled 2012 Lipid panel (procedure) [facility] 00:00:00 [code = 78408731] Medical Ce nter Future Scheduled 2012 Lipid panel (procedure) [facility] 00:00:00 [code = 40561902] Medical Ce nter Future Scheduled 2012 Lipid panel (procedure) [facility] 00:00:00 [code = [id number]] Medical Ce nter Future Scheduled 2012 Lipid panel (procedure) [facility] 00:00:00 [code = 23461561] Medical Ce nter Future Scheduled 2012 Lipid panel (procedure) [facility] 00:00:00 [code = 97508950] Medical Ce nter Future Scheduled 2012 Lipid panel (procedure) [facility] 00:00:00 [code = 59673935] Medical Ce nter Future Scheduled 2012 Lipid panel (procedure) [facility] 00:00:00 [code = 83752962] Medical Ce nter Future Scheduled 2012 Lipid panel (procedure) [facility] 00:00:00 [code = 15510085] Medical Ce nter Future Scheduled 2012 Lipid panel (procedure) [facility] 00:00:00 [code = 50938412] Medical Ce nter Future Scheduled 2012 Lipid panel (procedure) [facility] 00:00:00 [code = 80037559] Medical Ce nter Future Scheduled 2012 Lipid panel (procedure) [facility] 00:00:00 [code = 54502161] Medical Ce nter Future Scheduled 2012 Lipid panel (procedure) [facility] 00:00:00 [code = [id number]] Medical Ce nter Future Scheduled 2012 Lipid panel (procedure) [facility] 00:00:00 [code = 07745790] Medical Ce nter Future Scheduled 2011-11-[address] MED[address]AL [address]NESS [facility] 00:00:00 (YEAR 2 or FIRST YEAR if [facility] no IPPE) [code = MEDICARE ANNUAL WELLNESS (YEAR 2 or FIRST YEAR if no IPPE)] Future Scheduled 2011-11-02 MEDIC[address]NUAL WELLNESS [facility] 00:00:00 (YEAR 2 or FIRST YEAR if [facility] Center no IPPE) [code = MEDICARE ANNUAL WELLNESS (YEAR 2 or FIRST YEAR if no IPPE)] Future Scheduled 2011-11-02 MEDIC[address] [facility]NUAL WELLNESS [facility] 00:00:00 (YEAR 2 or FIRST YEAR if Med ical Center no IPPE) [code = MEDICARE ANNUAL WELLNESS (YEAR 2 or FIRST YEAR if no IPPE)] Future Scheduled 2011-11-02 MEDIC[address] [facility]NUAL [facility]LLNESS [facility] 00:00:00 (YEAR 2 or FIRST YEAR if Med ical Center no IPPE) [code = MEDICARE ANNUAL WELLNESS (YEAR 2 or FIRST YEAR if no IPPE)] Future Scheduled 2011-11-02 MEDIC[address] ANNUAL WELLNESS [facility] 00:00:00 (YEAR 2 or FIRST YEAR if Med ical Center no IPPE) [code = MEDICARE ANNUAL WELLNESS (YEAR 2 or FIRST YEAR if no IPPE)] Future Scheduled 2011-11-02 MEDIC[address] [facility]NUAL [facility]LLNESS [facility] 00:00:00 (YEAR 2 or FIRST YEAR if Med ical Center no IPPE) [code = MEDICARE ANNUAL WELLNESS (YEAR 2 or FIRST YEAR if no IPPE)] Future Scheduled 2011-11-02 MED[address] [facility]NUAL [facility]NESS [facility] 00:00:00 (YEAR 2 or FIRST YEAR if Med ical Center no IPPE) [code = MEDICARE ANNUAL WELLNESS (YEAR 2 or FIRST YEAR if no IPPE)] Future Scheduled 2011-11-02 MED[address] [facility]NUAL [facility]NESS [facility] 00:00:00 (YEAR 2 or FIRST YEAR if Med [facility] Center no IPPE) [code = MEDICARE ANNUAL WELLNESS (YEAR 2 or FIRST YEAR if no IPPE)] Future Scheduled 2011-11-02 MEDIC[address] [facility]NUAL WELLNESS [facility] 00:00:00 (YEAR 2 or FIRST YEAR if Med ical Center no IPPE) [code = MEDICARE ANNUAL WELLNESS (YEAR 2 or FIRST YEAR if no IPPE)] Future Scheduled 2011-11-02 MEDICARE ANNUAL WELLNESS [facility] 00:00:00 (YEAR 2 or FIRST YEAR if Med ical Center no IPPE) [code = MEDICARE ANNUAL WELLNESS (YEAR 2 or FIRST YEAR if no IPPE)] Future Scheduled 2011-11-02 MEDIC[facility]NUAL WE[facility]NESS [facility] 00:00:00 (YEAR 2 or FIRST YEAR if Med ical Center no IPPE) [code = MEDICARE ANNUAL WELLNESS (YEAR 2 or FIRST YEAR if no IPPE)] Future Scheduled 2011-11-02 MEDIC[facility]NUAL WE[facility]NESS [facility] 00:00:00 (YEAR 2 or FIRST YEAR if Med ical Center no IPPE) [code = MEDICARE ANNUAL WELLNESS (YEAR 2 or FIRST YEAR if no IPPE)] Future Scheduled 2011-11-02 MED[address] [facility]NUAL [facility]NESS [facility] 00:00:00 (YEAR 2 or FIRST YEAR if Med ical Center no IPPE) [code = MEDICARE ANNUAL WELLNESS (YEAR 2 or FIRST YEAR if no IPPE)] Future Scheduled 2011-11-02 MED[facility] [facility]NUAL [facility]NESS [facility] 00:00:00 (YEAR 2 or FIRST YEAR if Med ical Center no IPPE) [code = MEDICARE ANNUAL WELLNESS (YEAR 2 or FIRST YEAR if no IPPE)] Future Scheduled 2011-11-02 MED[address] [facility]NUAL WE[facility]NESS [facility] 00:00:00 (YEAR 2 or FIRST YEAR if Med ical Center no IPPE) [code = MEDICARE ANNUAL WELLNESS (YEAR 2 or FIRST YEAR if no IPPE)] Future Scheduled 2011-11-02 MEDIC[facility]NUAL WE[facility]NESS [facility] 00:00:00 (YEAR 2 or FIRST YEAR if Med ical Center no IPPE) [code = MEDICARE ANNUAL WELLNESS (YEAR 2 or FIRST YEAR if no IPPE)] Future Scheduled 2011-11-02 MEDIC[address] [facility]NUAL WELLNESS [facility] 00:00:00 (YEAR 2 or FIRST YEAR if Med ical Center no IPPE) [code = MEDICARE ANNUAL WELLNESS (YEAR 2 or FIRST YEAR if no IPPE)] Future Scheduled 1988 Screening for malignant [facility] 00:00:00 neoplasm of cervix Medical C enter (procedure) [code = 513108694] Future Scheduled 1988 Screening for malignant [facility] 00:00:00 neoplasm of cervix Medical C enter (procedure) [code = 497568179] Future Scheduled 1988 Screening for malignant [facility] 00:00:00 neoplasm of cervix Medical C enter (procedure) [code = 055476484] Future Scheduled 1988 Screening for malignant [facility] 00:00:00 neoplasm of cervix Medical C enter (procedure) [code = 694173646] Future Scheduled 1988 Screening for malignant [facility] 00:00:00 neoplasm of cervix Medical C enter (procedure) [code = 839918988] Future Scheduled 1988 Screening for malignant [facility] 00:00:00 neoplasm of cervix Medical C enter (procedure) [code = 859778524] Future Scheduled 1988 Screening for malignant [facility] 00:00:00 neoplasm of cervix Medical C enter (procedure) [code = 234975880] Future Scheduled 1988 Screening for malignant [facility] 00:00:00 neoplasm of cervix Medical C enter (procedure) [code = 798843088] Future Scheduled 1988 Screening for malignant [facility] 00:00:00 neoplasm of cervix Medical C enter (procedure) [code = 461129021] Future Scheduled 1988 Screening for malignant [facility] 00:00:00 neoplasm of cervix Medical C enter (procedure) [code = 670425889] Future Scheduled 1988 Screening for malignant [facility] 00:00:00 neoplasm of cervix Medical C enter (procedure) [code = 707063232] Future Scheduled 1988 Screening for malignant [facility] 00:00:00 neoplasm of cervix Medical C enter (procedure) [code = 401865806] Future Scheduled 1988 Screening for malignant [facility] 00:00:00 neoplasm of cervix Medical C enter (procedure) [code = 056631866] Future Scheduled 1988 Screening for malignant [facility] 00:00:00 neoplasm of cervix Medical C enter (procedure) [code = 850409778] Future Scheduled 1988 Screening for malignant [facility] 00:00:00 neoplasm of cervix Medical C enter (procedure) [code = 226172761] Future Scheduled 1988 Screening for malignant [facility] 00:00:00 neoplasm of cervix Medical C enter (procedure) [code = 849552527] Future Scheduled 1988 Screening for malignant [facility] 00:00:00 neoplasm of cervix Medical C enter (procedure) [code = 339455715] Future Scheduled 1986 DTAP/TDAP/TD VACCINES ([address] [facility] 00:00:00 - Tdap) [code = Medical Cent er DTAP/TDAP/TD VACCINES (1 - Tdap)] Future Scheduled 1986 DTAP/TDAP/TD VACCINES ([address] [facility] 00:00:00 - Tdap) [code = Medical Cent er DTAP/TDAP/TD VACCINES (1 - Tdap)] Future Scheduled 1986 DTAP/TDAP/TD VACCINES ([address] [facility] 00:00:00 - Tdap) [code = Medical Cent er DTAP/TDAP/TD VACCINES (1 - Tdap)] Future Scheduled 1986 DTAP/TDAP/TD VACCINES ([address] [facility] 00:00:00 - Tdap) [code = Medical Cent er DTAP/TDAP/TD VACCINES (1 - Tdap)] Future Scheduled 1986 DTAP/TDAP/TD VACCINES ([address] [facility] 00:00:00 - Tdap) [code = Medical Cent er DTAP/TDAP/TD VACCINES (1 - Tdap)] Future Scheduled 1986 DTAP/TDAP/TD VACCINES ([address] [facility] 00:00:00 - Tdap) [code = Medical Cent er DTAP/TDAP/TD VACCINES (1 - Tdap)] Future Scheduled 1986 DTAP/TDAP/TD VACCINES ([address] [facility] 00:00:00 - Tdap) [code = Medical Cent er DTAP/TDAP/TD VACCINES (1 - Tdap)] Future Scheduled 1986 DTAP/TDAP/TD VACCINES ([address] [facility] 00:00:00 - Tdap) [code = Medical Cent er DTAP/TDAP/TD VACCINES (1 - Tdap)] Future Scheduled 1986 DTAP/TDAP/TD VACCINES ([address] [facility] 00:00:00 - Tdap) [code = Medical Cent er DTAP/TDAP/TD VACCINES (1 - Tdap)] Future Scheduled 1986 DTAP/TDAP/TD VACCINES ([address] [facility] 00:00:00 - Tdap) [code = Medical Cent er DTAP/TDAP/TD VACCINES (1 - Tdap)] Future Scheduled 1986 DTAP/TDAP/TD VACCINES ([address] [facility] 00:00:00 - Tdap) [code = Medical Cent er DTAP/TDAP/TD VACCINES (1 - Tdap)] Future Scheduled 1986 DTAP/TDAP/TD VACCINES ([address] [facility] 00:00:00 - Tdap) [code = Medical Cent er DTAP/TDAP/TD VACCINES (1 - Tdap)] Future Scheduled 1986 DTAP/TDAP/TD VACCINES ([address] [facility] 00:00:00 - Tdap) [code = Medical Cent er DTAP/TDAP/TD VACCINES (1 - Tdap)] Future Scheduled 1986 DTAP/TDAP/TD VACCINES ([address] [facility] 00:00:00 - Tdap) [code = Medical Cent er DTAP/TDAP/TD VACCINES (1 - Tdap)] Future Scheduled 1986 DTAP/TDAP/TD VACCINES ([address] [facility] 00:00:00 - Tdap) [code = Medical Cent er DTAP/TDAP/TD VACCINES (1 - Tdap)] Future Scheduled 1986 DTAP/TDAP/TD VACCINES ([address] [facility] 00:00:00 - Tdap) [code = Medical Cent er DTAP/TDAP/TD VACCINES (1 - Tdap)] Future Scheduled 1986 DTAP/TDAP/TD VACCINES ([address] [facility] 00:00:00 - Tdap) [code = Medical Cent er DTAP/TDAP/TD VACCINES (1 - Tdap)] Future Scheduled [...] HEPATITIS C [facility] SCREENING] Future Scheduled [address] [facility] virus screening [facility] (procedure) [code = 995248443] Future Scheduled [address] [facility] 00:00:00 virus screening [facility] (procedure) [code = 274618588] Future Scheduled [address] [facility] 00:00:00 virus screening [facility] er (procedure) [code = 410670304] Future Scheduled 1967 Screening for malignant [facility] 00:00:00 neoplasm of breast Medical C enter (procedure) [code = 926061643] Future Scheduled 1967 CT Colonography (combo) [facility] 00:00:00 [code = CT Colonography [facility] (combo)] Future Scheduled 1967 Screening for malignant [facility] 00:00:00 neoplasm of colon Medical Ce nter (procedure) [code = 036055960] Future Scheduled 1967 Screening for malignant [facility] 00:00:00 neoplasm of colon Medical Ce nter (procedure) [code = 095267358] Future Scheduled 1967 Sigmoidoscopy [code = [facility]] [facility] Cent[facility] r Future Scheduled 1967 Screening for malignant [facility] 00:00:00 neoplasm of breast Medical C enter (procedure) [code = 815425937] Future Scheduled 1967 CT Colonography (combo) [facility] 00:00:00 [code = CT Colonography [facility] (combo)] Future Scheduled 1967 Screening for malignant [facility] 00:00:00 neoplasm of colon Medical Ce nter (procedure) [code = 739538083] Future Scheduled 1967 Screening for malignant [facility] 00:00:00 neoplasm of colon Medical Ce nter (procedure) [code = 565768604] Future Scheduled 1967 Sigmoidoscopy [code = [facility] S[facility]] [facility] Cent[facility] Future Scheduled 1967 Screening for malignant [facility] 00:00:00 neoplasm of breast Medical C enter (procedure) [code = 822000135] Future Scheduled 1967 CT Colonography (combo) [facility] 00:00:00 [code = CT Colonography [facility] (combo)] Future Scheduled 1967 Screening for malignant [facility] 00:00:00 neoplasm of colon Medical Ce nter (procedure) [code = 612275816] Future Scheduled 1967 Screening for malignant [facility] 00:00:00 neoplasm of colon Medical Ce nter (procedure) [code = 974120372] Future Scheduled 1967 Sigmoidoscopy [code = [facility] S[facility]oidoscopy] [facility] Cent[facility] r Future Scheduled 1967 Screening for malignant [facility] 00:00:00 neoplasm of breast Medical C enter (procedure) [code = 937482833] Future Scheduled 1967 CT Colonography (combo) [facility] 00:00:00 [code = CT Colonography [facility] (combo)] Future Scheduled 1967 Screening for malignant [facility] 00:00:00 neoplasm of colon Medical Ce nter (procedure) [code = 551068451] Future Scheduled 1967 Screening for malignant [facility] 00:00:00 neoplasm of colon Medical Ce nter (procedure) [code = 571325343] Future Scheduled 1967 Sigmoidoscopy [code = [facility] S[facility]oscopy] [facility] Cent[facility] Future Scheduled 1967 Screening for malignant [facility] 00:00:00 neoplasm of breast Medical C enter (procedure) [code = 087565687] Future Scheduled 1967 CT Colonography (combo) [facility] 00:00:00 [code = CT Colonography [facility] (combo)] Future Scheduled 1967 Screening for malignant [facility] 00:00:00 neoplasm of colon Medical Ce nter (procedure) [code = 416876431] Future Scheduled 1967 Screening for malignant [facility] 00:00:00 neoplasm of colon Medical Ce nter (procedure) [code = 802175398] Future Scheduled 1967 Sigmoidoscopy [code = [facility] S[facility]oidoscopy] [facility] Cent[facility] r Future Scheduled 1967 Screening for malignant [facility] 00:00:00 neoplasm of breast Medical C enter (procedure) [code = 993158774] Future Scheduled 1967 CT Colonography (combo) [facility] 00:00:00 [code = CT Colonography [facility] (combo)] Future Scheduled 1967 Screening for malignant [facility] 00:00:00 neoplasm of colon Medical Ce nter (procedure) [code = 514491007] Future Scheduled 1967 Screening for malignant [facility] 00:00:00 neoplasm of colon Medical Ce nter (procedure) [code = 466071233] Future Scheduled 1967 Sigmoidoscopy [code = [facility] S[facility]oidoscopy] [facility] Cent[facility] r Future Scheduled 1967 Screening for malignant [facility] 00:00:00 neoplasm of breast Medical C enter (procedure) [code = 264220702] Future Scheduled 1967 CT Colonography (combo) [facility] 00:00:00 [code = CT Colonography [facility] (combo)] Future Scheduled 1967 Screening for malignant [facility] 00:00:00 neoplasm of colon Medical Ce nter (procedure) [code = 747501996] Future Scheduled 1967 Screening for malignant [facility] 00:00:00 neoplasm of colon Medical Ce nter (procedure) [code = 828994537] Future Scheduled 1967 Sigmoidoscopy [code = [facility] S[facility]oscopy] [facility] Cent[facility] Future Scheduled 1967 Screening for malignant [facility] 00:00:00 neoplasm of breast Medical C enter (procedure) [code = 123502223] Future Scheduled 1967 CT Colonography (combo) [facility] 00:00:00 [code = CT Colonography [facility] (combo)] Future Scheduled 1967 Screening for malignant [facility] 00:00:00 neoplasm of colon Medical Ce nter (procedure) [code = 101863724] Future Scheduled 1967 Screening for malignant [facility] 00:00:00 neoplasm of colon Medical Ce nter (procedure) [code = 221607380] Future Scheduled 1967 Sigmoidoscopy [code = [facility] S[facility]oidoscopy] [facility] Cent[facility] r Future Scheduled 1967 Screening for malignant [facility] 00:00:00 neoplasm of breast Medical C enter (procedure) [code = 326555052] Future Scheduled 1967 CT Colonography (combo) [facility] 00:00:00 [code = CT Colonography [facility] (combo)] Future Scheduled 1967 Screening for malignant [facility] 00:00:00 neoplasm of colon Medical Ce nter (procedure) [code = 132928291] Future Scheduled 1967 Screening for malignant [facility] 00:00:00 neoplasm of colon Medical Ce nter (procedure) [code = 570911644] Future Scheduled 1967 Sigmoidoscopy [code = [facility] S[facility]oidoscopy] [facility] Cent[facility] Future Scheduled 1967 Screening for malignant [facility] 00:00:00 neoplasm of breast Medical C enter (procedure) [code = 950476961] Future Scheduled 1967 CT Colonography (combo) [facility] 00:00:00 [code = CT Colonography [facility] (combo)] Future Scheduled 1967 Screening for malignant [facility] 00:00:00 neoplasm of colon Medical Ce nter (procedure) [code = 802060546] Future Scheduled 1967 Screening for malignant [facility] 00:00:00 neoplasm of colon Medical Ce nter (procedure) [code = 123224967] Future Scheduled 1967 Sigmoidoscopy [code = [facility] S[facility]oidoscopy] Medical Cent[facility] r Future Scheduled 1967 Screening for malignant [facility] 00:00:00 neoplasm of breast Medical C enter (procedure) [code = 544506550] Future Scheduled 1967 CT Colonography (combo) [facility] 00:00:00 [code = CT Colonography [facility] (combo)] Future Scheduled 1967 Screening for malignant [facility] 00:00:00 neoplasm of colon Medical Ce nter (procedure) [code = 963620860] Future Scheduled 1967 Screening for malignant [facility] 00:00:00 neoplasm of colon Medical Ce nter (procedure) [code = 007604261] Future Scheduled 1967 Sigmoidoscopy [code = [facility] S[facility]oidoscopy] Medical Cent[facility] Future Scheduled 1967 Screening for malignant [facility] 00:00:00 neoplasm of breast Medical C enter (procedure) [code = 414317187] Future Scheduled 1967 CT Colonography (combo) [facility] 00:00:00 [code = CT Colonography [facility] (combo)] Future Scheduled 1967 Screening for malignant [facility] 00:00:00 neoplasm of colon Medical Ce nter (procedure) [code = 518715205] Future Scheduled 1967 Screening for malignant [facility] 00:00:00 neoplasm of colon Medical Ce nter (procedure) [code = 074266399] Future Scheduled 1967 Sigmoidoscopy [code = [facility] S[facility]oidoscopy] Medical Cent[facility] r Future Scheduled 1967 Screening for malignant [facility] 00:00:00 neoplasm of breast Medical C enter (procedure) [code = 149799749] Future Scheduled 1967 CT Colonography (combo) [facility] 00:00:00 [code = CT Colonography [facility] (combo)] Future Scheduled 1967 Screening for malignant [facility] 00:00:00 neoplasm of colon Medical Ce nter (procedure) [code = 115859156] Future Scheduled 1967 Screening for malignant [facility] 00:00:00 neoplasm of colon Medical Ce nter (procedure) [code = 333459674] Future Scheduled 1967 Sigmoidoscopy [code = [facility] S[facility]oidoscopy] Medical Cent[facility] r Future Scheduled 1967 Screening for malignant [facility] 00:00:00 neoplasm of breast Medical C enter (procedure) [code = 872815655] Future Scheduled 1967 CT Colonography (combo) [facility] 00:00:00 [code = CT Colonography [facility] (combo)] Future Scheduled 1967 Screening for malignant [facility] 00:00:00 neoplasm of colon Medical Ce nter (procedure) [code = 368917202] Future Scheduled 1967 Screening for malignant [facility] 00:00:00 neoplasm of colon Medical Ce nter (procedure) [code = 265149484] Future Scheduled 1967 Sigmoidoscopy [code = [facility] S[facility]oidoscopy] Medical Cent[facility] r Future Scheduled 1967 Screening for malignant [facility] 00:00:00 neoplasm of breast Medical C enter (procedure) [code = 846913827] Future Scheduled 1967 CT Colonography (combo) [facility] 00:00:00 [code = CT Colonography [facility] (combo)] Future Scheduled 1967 Screening for malignant [facility] 00:00:00 neoplasm of colon Medical Ce nter (procedure) [code = 979990509] Future Scheduled 1967 Screening for malignant [facility] 00:00:00 neoplasm of colon Medical Ce nter (procedure) [code = 755853085] Future Scheduled 1967 Sigmoidoscopy [code = [facility] S[facility]oidoscopy] Medical James r Future Scheduled 1967 Screening for malignant [facility] 00:00:00 neoplasm of breast Medical C enter (procedure) [code = 769203585] Future Scheduled 1967 CT Colonography (combo) [facility] 00:00:00 [code = CT Colonography [facility] (combo)] Future Scheduled 1967 Screening for malignant [facility] 00:00:00 neoplasm of colon Medical Ce nter (procedure) [code = 084189410] Future Scheduled 1967 Screening for malignant [facility] 00:00:00 neoplasm of colon Medical Ce nter (procedure) [code = 388919847] Future Scheduled 1967 Sigmoidoscopy [code = [facility] S[facility]oidoscopy] Medical James r Future Scheduled 1967 Screening for malignant [facility] 00:00:00 neoplasm of breast Medical C enter (procedure) [code = 663667640] Future Scheduled 1967 CT Colonography (combo) [facility] 00:00:00 [code = CT Colonography [facility] (combo)] Future Scheduled 1967 Screening for malignant [facility] 00:00:00 neoplasm of colon Medical Ce nter (procedure) [code = 798738244] Future Scheduled 1967 Screening for malignant [facility] 00:00:00 neoplasm of colon Medical Ce nter (procedure) [code = 483691496] Future Scheduled 1967 Sigmoidoscopy [code = [facility] S[facility]oidoscopy] Medical James larson Encounters Start End Encounter Admission Attending Care Care Encounter Source Date/Time Date/Time Type Type Clinicians Facility Department ID 2022-11-17 Outpatient SYSTEM, [facility]GER [id number] 12:15:21 PROVIDER Lauri olivier 2021-08-29 Emergency [facility] [id number] Univers 21:08:39 ity [facility] 2020-08-23 Inpatient Tapan Martin [facility] [id number] [facility] 15:14:00 14 [facility] 2019-12-07 Inpatient KYLAH Rodriguez [facility] ENDO [id number] [facility] 10:00:00 Zacarias 32 [facility] 2023-08-09 2023-08-09 Outpatient Marsha SHERIFF [facility] [id number] [facility] 09:45:00 09:45:00 NEREIDA ity of [facility] 2023-05-18 2023-05-18 Telephone No Andraed NRodger 1.2.840.1 [id number] Univers 14:00:00 14:30:00 Freya Kimball [id number] ity of 3.412.2.7 [place] .[id number] MD Blair [facility] 2023-05-18 2023-05-18 Telephone No Diaz 1.2.840.1 [id number] Univers 14:00:00 14:30:00 Freya Kimball [id number] ity of 3.412.2.7 [place] .[id number] MD Blair [facility] 2023-05-11 2023-05-11 Telephone Jose 1.2.840.1 [id number] Univers 00:00:00 00:00:00 Marily [id number] ity of 3.412.2.7 [place] .[id number] MD Blair [facility] 2023-05-11 2023-05-11 Telephone Garcia, 1.2.840.1 [id number] Univers 00:00:00 00:00:00 Marily [id number] ity of 3.412.2.7 [place] .[id number] MD Blair [facility] 2023-05-05 2023-05-05 OLGA Yost [id number] Univers 00:00:00 00:00:00 Deyanira WILSON 350.1.13.10 it y of HOSPITAL 4.2.7.2.686 Frankie as [id number] [place] [address] [place] 2023-05-02 2023-05-02 Telephone Alexjohnathon, 1.2.840.1 [id number] Univers 00:00:00 00:00:00 No Olivier. 30275.1.1 it y of 3.412.2.7 [place] .[id number] MD Blair [facility] 2023-05-02 2023-05-02 Telephone Raymond, 1.2.840.1 [id number] Univers 00:00:00 00:00:00 No N. 46477.1.1 it y of 3.412.2.7 [place] .[id number] MD Blair [facility] 2023-04-22 2023-04-22 Follow-Up Luu, 1.2.840.1 [id number] Univers 14:30:00 16:41:41 Winter 11804.1.1 ity of Gini 3.412.2.7 [place] .3.063842 MD Blair [facility] 2023-04-22 2023-04-22 Follow-Up [facility], 1.2.840.1 [id number] 1105 [id number] Univers 14:30:00 16:41:41 Winter 23360.1.1 ity of Gini 3.412.2.7 [place] .3.975201 MD Blair [facility] 2023-04-22 2023-04-22 Follow-Up Dee Power, 1.2.840.1 [id number] Univers 15:40:00 16:37:58 Celyne 64429.1.1 ity of 3.412.2.7 [place] .3.896136 MD Blair [facility] 2023-04-22 2023-04-22 Follow-Up KYLAH Power, 1.2.840.1 [id number] Univers 15:40:00 16:37:58 Celyne 72823.1.1 ity of 3.412.2.7 [place] .3.800585 MD Blair [facility] 2023-04-22 2023-04-22 Ancillary Luu, 1.2.840.1 [id number] 1105 [id number] Univers 12:15:00 14:00:00 Procedure Winter 81912.1.1 it y of G[place] 3.412.2.7 [place] .3.733586 MD Blari [facility] 2023-04-22 2023-04-22 Ancillary [facility], 1.2.840.1 [id number] 1105 [id number] Univers 12:15:00 14:00:00 Procedure Winter 78296.1.1 it y of G[place] 3.412.2.7 [place] .3.002960 MD Blair [facility] 2023-04-22 2023-04-22 Outpatient [facility] MDA [id number] 12:18:34 12:30:06 WINTER olivier 2023-04-22 2023-04-22 Travel 1.2.840.1 1.2.247.327 6608 [id number] Univers 00:00:00 00:00:00 84322.1.1 350.1.13.41 ity of 3.412.2.7 2.[place].7.3.698 [place] .3.828459 084.8 MD Blair [facility] 2023-04-22 2023-04-22 Travel 1.2.840.1 1.2.266.329 2821 [id number] Univers 00:00:00 00:00:00 02454.1.1 350.1.13.41 ity of 3.412.2.7 2.2.7.3.698 [place] .3.734428 084.8 .[address] [facility] 2023-04-09 2023-04-09 Rohith Thomas, 1.2.840.1 [id number] Univers 00:00:00 00:00:00 Kyung 48849.1.1 ity of 3.412.2.7 [place] .3.574148 MD Soares8 [facility] 2023-04-09 2023-04-09 Rohith Thomas, 1.2.840.1 [id number] Univers 00:00:00 00:00:00 Kyung 67564.1.1 ity of 3.412.2.7 [place] .3.550375 MD Soares8 [facility] 2023-04-08 2023-04-08 [facility] 1.2.840.114 [id number] Univers 10:00:00 10:15:00 Visit [facility] 350.1.13.10 it y [facility] 4.2.7.2.686 Frankie as JAVIER?BLEA [id number] [address] MEDICAL OFFICE BUILDING 2023-04-08 2023-04-08 Outpatient [facility] [id number] Univers 10:00:00 09[facility] 2023-04-08 2023-04-08 Rohith Gordon, 1.2.840.1 [id number] Univers 00:00:00 00:00:00 Miguel Fernandez 83175.1.1 it y of 3.412.2.7 [place] .3.124341 MD Blair [facility] 2023-04-08 2023-04-08 Rohith Gordon 1.2.840.1 [id number] Univers 00:00:00 00:00:00 Miguel Fernandez 42033.1.1 it y of 3.412.2.7 [place] .3.865869 MD Blair [facility] 2023-03-12 2023-04-06 Nutrition Kenya Agarwal. 1.2.840.1 [id number] 23 [id number] Univers 11:00:00 15:50:58 Clint Lian Sourav 16018.1.1 ity of 3.412.2.7 [place] .3.844659 MD Blair [facility] 2023-03-12 2023-04-06 Nutrition Kasia Agarwalmindy Álvarez. 1.2.840.1 [id number] 23 [id number] Univers 11:00:00 15:50:58 ClintTatumy Sourav 44564.1.1 ity of 3.412.2.7 [place] .3.533047 MD Blair [facility] 2023-03-31 2023-03-31 Office Torin Thein 1.2.840.1 [id number] 1106 [id number] Univers 10:30:00 11:14:16 Visit 63538.1.1 ity of 3.412.2.7 [place] .3.876195 MD Blair [facility] 2023-03-31 2023-03-31 Office KYLAH Harkins Theraegan 1.2.840.1 [id number] 1106 [id number] Univers 10:30:00 11:14:16 Visit 24821.1.1 ity of 3.412.2.7 [place] .3.753216 MD Blair [facility] 2023-03-31 2023-03-31 Travel 1.2.840.1 1.2.555.639 6648 [id number] Univers 00:00:00 00:00:00 26063.1.1 350.1.13.41 ity of 3.412.2.7 2.[place].7.3.698 [place] .3.002474 084.8 MD Blair [facility] 2023-03-31 2023-03-31 Travel 1.2.840.1 1.2.517.812 0694 [id number] Univers 00:00:00 00:00:00 16843.1.1 350.1.13.41 ity of 3.412.2.7 2.2.7.3.698 [place] .3.696517 084.8 MD Blair [facility] 2023-03-30 2023-03-30 Outpatient Eri VFP VFP 37134 45-20 Village 00:00:00 00:00:00 706262 Family Practic e 2023-03-26 2023-03-26 Telephone Pomer, 1.2.840.1 [id number] 1106 [id number] Univers 00:00:00 00:00:00 Viry March 14054.1.1 it y of 3.412.2.7 [place] .3.593783 MD Soares8 [facility] 2023-03-26 2023-03-26 Telephone Pomer, 1.2.840.1 [id number] 1106 [id number] Univers 00:00:00 00:00:00 Viry March 74979.1.1 it y of 3.412.2.7 [place] .3.714558 MD Soares8 [facility] 2023-03-19 2023-03-23 Telemcabrera Lopes, 1.2.840.1 [id number] 140 [id number] Univers 13:30:00 07:29:30 ne Angela 24837.1.1 ity of 3.412.2.7 [place] .3.470640 MD Soares8 [facility] 2023-03-19 2023-03-23 Telemcabrera Lopes, 1.2.840.1 [id number] Univers 13:30:00 07:29:30 ne Angela 16066.1.1 ity of 3.412.2.7 [place] .3.345432 MD Soares8 [facility] 2023-03-23 2023-03-23 Telephone Lan, 1.2.840.1 [id number] Univers 00:00:00 00:00:00 Lindy 49645.1.1 ity of Ashleigh 3.412.2.7 [place] .3.082279 MD Blair [facility] [address] 2023-03-23 2023-03-23 Orders [employer], 1.2.840.1 [id number] Univers 00:00:00 00:00:00 Only Lindy 22054.1.1 ity of [place] 3.412.2.7 [place] .3.564817 MD Soares8 [facility] 2023-03-23 2023-03-23 Telephone Lan, 1.2.840.1 [id number] 036 [id number] Univers 00:00:00 00:00:00 Lindy 88014.1.1 ity of [place] 3.412.2.7 [place] .3.580313 MD Soares8 [facility] 2023-03-23 2023-03-23 Orders Lan, 1.2.840.1 [id number] Univers 00:00:00 00:00:00 Only Lindy 63080.1.1 ity of [place] 3.412.2.7 [place] .3.867551 MD Soares8 [facility] 2023-03-18 2023-03-18 Telephone [facility] J[facility], 1.2.840.1 [id number] Univers 00:00:00 00:00:00 Celyne 44978.1.1 ity of 3.412.2.7 [place] .3.388158 MD Soares8 [facility] 2023-03-18 2023-03-18 Telephone [facility] J[facility]et, 1.2.840.1 [id number] Univers 00:00:00 00:00:00 Celyne 40320.1.1 ity of 3.412.2.7 [place] .3.420554 MD Soares8 [facility] 2023-03-16 2023-03-16 Anabell Hdez 1.2.840.1 [id number] Univers 00:00:00 00:00:00 Only Lorena 69000.1.1 ity of Kayla 3.412.2.7 [place] .3.795883 MD Soares8 [facility] 2023-03-16 2023-03-16 Anabell Hdez, 1.2.840.1 [id number] Univers 00:00:00 00:00:00 Only Lorena 50810.1.1 ity of Kayla 3.412.2.7 [place] .3.019252 MD Soares8 [facility] 2023-03-12 2023-03-12 Orders Doctor OLGA 1.2.840.114 [id number] Univers 00:00:00 00:00:00 Only Unassigned, STEVE 350.1.13.10 ity of [facility] 4.2.7.2.686 Frankie as [phone] [facility] mari [address] 2023-03-11 2023-03-11 Infusion Lemuel, 1.2.840.1 [id number] Univers 13:30:00 15:40:13 Lorena 49625.1.1 ity of Kayla 3.412.2.7 [place] .3.588713 MD Soares8 [facility] 2023-03-11 2023-03-11 Infusion KYLAH Hdez, 1.2.840.1 [id number] Univers 13:30:00 15:40:13 Lorena 91735.1.1 ity of Kayla 3.412.2.7 [place] .3.872143 MD Soares8 [facility] 2023-03-11 2023-03-11 Follow-Up Lemuel, 1.2.840.1 [id number] [id number] Univers 11:20:00 12:42:16 Lorena 41881.1.1 ity of Kayla 3.412.2.7 [place] .3.724551 MD Soares8 [facility] 2023-03-11 2023-03-11 Follow-Up KYLAH Hdez, 1.2.840.1 [id number] 1106 [id number] Univers 11:20:00 12:42:16 Lorena 16170.1.1 ity of Kayla 3.412.2.7 [place] .3.230965 MD Soares8 [facility] 2023-03-11 2023-03-11 Outpatient KYLAH HDEZ, [facility] [id number] 11:07:27 11:16:17 LORENA olivier 2023-03-11 2023-03-11 Travel 1.2.840.1 1.2.664.358 1785 [id number] Univers 00:00:00 00:00:00 77486.1.1 350.1.13.41 ity of 3.412.2.7 2.2.7.3.698 [place] .3.823452 084.8 MD Blair [facility] 2023-03-11 2023-03-11 Travel 1.2.840.1 1.2.589.986 8707 [id number] Univers 00:00:00 00:00:00 22165.1.1 350.1.13.41 ity of 3.412.2.7 2.2.7.3.698 [place] .3.805455 084.8 MD Soares8 [facility] 2023-03-09 2023-03-09 Telephone Hdez, 1.2.840.1 [id number] 1106 [id number] Univers 00:00:00 00:00:00 Loerna 95157.1.1 ity of Kayla 3.412.2.7 [place] .3.533985 MD Soares8 [facility] 2023-03-09 2023-03-09 Telephone Hdez, 1.2.840.1 [id number] 1106 [id number] Univers 00:00:00 00:00:00 Lorena 20857.1.1 ity of Kayla 3.412.2.7 [place] .3.584583 MD Blair [facility] 2023-03-04 2023-03-04 Kenya Gastelum. 1.2.840.1 [id number] 23 [id number] Univers 10:00:00 10:57:47 Lian Jaramillo 37195.1.1 ity of 3.412.2.7 [place] .3.645020 MD Soares8 [facility] 2023-03-04 2023-03-04 Nutrition EL Kenya Agarwal. 1.2.840.1 [id number] 23 [id number] Univers 10:00:00 10:57:47 Lian Jaramillo 67711.1.1 ity of 3.412.2.7 [place] .3.269238 MD Soares8 [facility] 2023-03-04 2023-03-04 Anabell Hdez 1.2.840.1 [id number] Univers 00:00:00 00:00:00 Only Lorena 55307.1.1 ity of Kayal 3.412.2.7 [place] .3.401355 MD Blair [facility] 2023-03-04 2023-03-04 Telephone Carnew, 1.2.840.1 [id number] 1105 [id number] Univers 00:00:00 00:00:00 Tita Mayorga 32759.1.1 ity of 3.412.2.7 [place] .3.228504 MD Soares8 [facility] 2023-03-04 2023-03-04 Anabell Gordon 1.2.840.1 [id number] Univers 00:00:00 00:00:00 Only Miguel Fernandez 58794.1.1 it y of 3.412.2.7 [place] .3.828417 MD Blair [facility] 2023-03-04 2023-03-04 OLGA Yost 1.2.840.114 [id number] Univers 00:00:00 00:00:00 Deyanira WILSON 350.1.13.10 it y of [facility] 4.2.7.2.686 Frankie as [id number] [place] [address] [place] 2023-03-04 2023-03-04 Anabell Hdez 1.2.840.1 [id number] Univers 00:00:00 00:00:00 Only Lorena Villalobos50.1.1 ity of Kayla 3.412.2.7 [place] .3.360632 MD Soares8 [facility] 2023-03-04 2023-03-04 Telephone Carnew, 1.2.840.1 [id number] 1105 [id number] Univers 00:00:00 00:00:00 Tita Mayorga 51645.1.1 ity of 3.412.2.7 [place] .3Rodger106574 MD Blair [facility] 2023-03-04 2023-03-04 Anabell Gordon 1.2.840.1 [id number] Univers 00:00:00 00:00:00 Only Miguel PeñalozaRodger 79968.1.1 it y of 3.412.2.7 [place] .3.579515 MD Soares8 [facility] 2023-03-03 2023-03-03 Outpatient KYLAH HDEZ, TAO MDA [id number] 12:48:25 13:03:52 LORENA Suraj [facility] 2023-03-03 2023-03-03 Follow-Up Dee Power, 1.2.840.1 [id number] Univers 11:40:00 12:57:39 Celyne 28974.1.1 ity of 3.412.2.7 [place] .3.079859 MD Soares8 [facility] 2023-03-03 2023-03-03 Follow-Up KYLAH Power, 1.2.840.1 [id number] Univers 11:40:00 12:57:39 Celyne 14348.1.1 ity of 3.412.2.7 [place] .3.912300 MD Blair [facility] 2023-03-03 2023-03-03 Rohith Santillan 1.2.840.1 [id number] 1550 Univers 00:00:00 00:00:00 Anumol 07457.1.1 ity of 3.412.2.7 [place] .3.531771 MD Soraes8 [facility] 2023-03-03 2023-03-03 Travel 1.2.840.1 1.2.645.108 4187 [id number] Univers 00:00:00 00:00:00 40979.1.1 350.1.13.41 ity of 3.412.2.7 2.2.7.3.698 [place] .3.183103 084.8 MD Soares8 [facility] 2023-03-03 2023-03-03 Rohith Santillan 1.2.840.1 [id number] 5302 Univers 00:00:00 00:00:00 Anumol 40700.1.1 ity of 3.412.2.7 [place] .3.945207 MD Soares8 [facility] 2023-03-03 2023-03-03 Travel 1.2.840.1 1.2.125.890 9915 [id number] Univers 00:00:00 00:00:00 80859.1.1 350.1.13.41 ity of 3.412.2.7 2.2.7.3.698 [place] .3.820081 084.8 .[address] [facility] 2023-03-02 2023-03-02 Rohith Santillan, 1.2.840.1 [id number] Univers 00:00:00 00:00:00 Anumol 68987.1.1 ity of 3.412.2.7 [place] .3.929062 MD Soares8 [facility] 2023-03-02 2023-03-02 Rohith Santillan, 1.2.840.1 [id number] 0903 Univers 00:00:00 00:00:00 Anumol 27937.1.1 ity of 3.412.2.7 [place] .3.983304 MD Soares8 [facility] 2023-02-26 2023-02-26 Telemediccarlos Gordon, 1.2.840.1 [id number] Univers 08:30:00 08:56:14 april Fernandez 35972.1.1 it y of 3.412.2.7 [place] .3.028970 MD Soares8 [facility] 2023-02-26 2023-02-26 Telemedici KYLAH Gordon, 1.2.840.1 [id number] [id number] Univers 08:30:00 08:56:14 april Fernandez 89472.1.1 it y of 3.412.2.7 [place] .3.070512 MD Soares8 [facility] 2023-02-25 2023-02-25 Kenya Gastelum. 1.2.840.1 [id number] 23 [id number] Univers 10:00:00 11:13:11 Lian Jaramillo 48266.1.1 ity of 3.412.2.7 [place] .3.900252 MD Blair [facility] 2023-02-25 2023-02-25 Nutrition Kenya Carrion 1.2.840.1 [id number] 23 [id number] Univers 10:00:00 11:13:11 Lian Jaramillo 65333.1.1 ity of 3.412.2.7 [place] .3.603399 MD Soares8 [facility] 2023-02-23 2023-02-23 [facility] 1.2.840.114 [id number] Univers 00:00:00 00:00:00 Nereida [facility] 350.1.13.10 it y of [place] 4.2.7.2.686 Frankie as JAVIER?BLEA [phone] [address] OFFICE [facility] 2023-02-19 2023-02-19 Telephone Tonny, 1.2.840.1 [id number] [id number] Univers 00:00:00 00:00:00 Anthony Benjamin 85147.1.1 ity of 3.412.2.7 [place] .3.185533 MD Soares8 [facility] 2023-02-19 2023-02-19 Telephone Tonny, 1.2.840.1 [id number] 1105 [id number] Univers 00:00:00 00:00:00 Anthony Benjamin 66284.1.1 ity of 3.412.2.7 [place] .3.260291 MD Soares8 [facility] 2023-02-18 2023-02-18 Kenya Gastelum 1.2.840.1 [id number] Univers 10:00:00 10:47:33 Lian Jaramillo 24844.1.1 ity of 3.412.2.7 [place] .3Rodger360994 MD Soares8 [facility] 2023-02-18 2023-02-18 Nutrition Kenya Carrion 1.2.840.1 [id number] 23 [id number] Univers 10:00:00 10:47:33 Lian Jaramillo 30579.1.1 ity of 3.412.2.7 [place] .3.883084 MD Soares8 [facility] [address] 2023-02-05 2023-02-16 [facility] 1.2.840.1 [id number] 1 [id number] [facility] 16:49:00 16:40:00 Encounter Felisa Rashid 44461.1.1 ity of [place]ina [place] 3.412.2.7 [place] Amanda Proctor .3.217291 Napoleon Romero, Son V. .8 A jenna Gill, Derrick Wang, Kofibaldev Vega [facility] 2023-02-05 2023-02-16 [facility] 1.2.840.1 [id number] 1 [id number] [facility] 16:49:00 16:40:00 Encounter Felisa Rashid 15321.1.1 ity of Romana Guy 3.412.2.7 Amanda Patino .3.233802 Napoleon Romero, Son V. .8 A Derrick Sandoval, Kofi Silvia [facility] 2023-02-14 2023-02-14 Inpatient KYLAH HORNEMAYNORTAO MDA [id number] 11:31:10 12:01:35 KOFI Carreon o soy 2023-02-13 2023-02-13 Inpatient KYLAH WANG MDA MDA [id number] 15:30:24 16:08:06 KOFI Richardsoners o n 2023-02-12 2023-02-12 [facility] Kenya Agarwal 1.2.840.1 [id number] 1 [id number] Univers 07:00:00 23:59:00 Encounter Y. 62823.1.1 it y of 3.412.2.7 [place] .3.715094 MD Soares8 [facility] [address] 2023-02-12 [facility]23[facility]02-12 [facility].840.1 [id number] 1 [id number] Univers 07:00:00 23:59:00 Encounter Y. 26739.1.1 it y of 3.412.2.7 [place] .3.023681 MD Blair [facility] 2023-02-12 2023-02-12 [facility], 1.2.840.1 [id number] Univers 16:15:00 16:30:00 Support Winter 20680.1.1 ity of Gini 3.412.2.7 [place] .3.947570 MD Soares8 [facility] 2023-02-12 2023-02-12 [facility], 1.2.840.1 [id number] Univers 16:15:00 16:30:00 Support Winter 13090.1.1 ity of Gini 3.412.2.7 [place] .3.655824 MD Blair [facility] 2023-02-12 2023-02-12 [facility] 1.2.840.1 [id number] [id number] Univers 00:00:00 00:00:00 ion Winter 43269.1.1 ity of Gini 3.412.2.7 [place] .3.963674 MD Blair [facility] 2023-02-12 2023-02-12 [facility], 1.2.840.1 [id number] Univers 00:00:00 00:00:00 Only Winter 22079.1.1 ity of Gini 3.412.2.7 [place] .3.832722 MD Blair [facility] 2023-02-12 2023-02-12 [facility], 1.2.840.1 [id number] Univers 00:00:00 00:00:00 Only Dustin 09239.1.1 ity of 3.412.2.7 [place] .3.595934 MD Blair [facility] 2023-02-12 2023-02-12 [facility], 1.2.840.1 [id number] Univers 00:00:00 00:00:00 ion Winter 18747.1.1 ity of Gini 3.412.2.7 [place] .3.158809 MD Blair [facility] 2023-02-12 2023-02-12 Orders Luu, 1.2.840.1 [id number] Univers 00:00:00 00:00:00 Only Winter 13617.1.1 ity of Gini 3.412.2.7 [place] .3.629419 .[address] [facility] 2023-02-12 2023-02-12 Orders Bruce, 1.2.840.1 [id number] Univers 00:00:00 00:00:00 Only Dustin 56290.1.1 ity of 3.412.2.7 [place] .3.499148 .[address] [facility] 2023-02-10 2023-02-10 Inpatient KENYA AGARWAL MDA MDA [id number] 16:26:42 16:26:45 Lauri o n 2023-02-10 2023-02-10 Inpatient KYLAH WANG MDA MDA [id number] 11:58:56 12:28:35 KOFI Lauri o n 2023-02-10 2023-02-10 [facility] MDA [id number] 10:33:31 12:07:35 KOFI Lauri o n 2023-02-10 2023-02-10 Orders Charla Solis 1.2.840.1 [id number] 11 [id number] Univers 00:00:00 00:00:00 Only Tomeka 61124.1.1 ity of 3.412.2.7 [place] .3.162593 .[address] [facility] 2023-02-10 2023-02-10 Orders Charla Solis 1.2.840.1 [id number] Univers 00:00:00 00:00:00 Only [place] 00956.1.1 ity of 3.412.2.7 [place] .3.525469 .[address] [facility] 2023-02-09 2023-02-09 Inpatient SUSSYANHMAYNORTAO MDA [id number] 20:20:46 20:27:48 KOFI Lauri o n 2023-02-08 2023-02-08 [facility] Kasia Agarwalley 1.2.840.1 [id number] 1 [id number] Univers 06:00:00 23:59:00 Encounter Y. 20850.1.1 it y of 3.412.2.7 [place] .3.139307 .[address] [facility] 2023-02-08 2023-02-08 [facility] Kenya Agarwal 1.2.840.1 [id number] 1 [id number] Univers 06:00:00 23:59:00 Encounter Y. 83643.1.1 it y of 3.412.2.7 [place] .3.629572 .[address] [facility] 2023-02-08 2023-02-08 Inpatient EDDIEDAVID MDA MDA [id number] 11:08:59 11:38:36 DERRICK Olivier [facility] 2023-02-08 2023-02-08 Inpatient KENYA AGARWAL MDA MDA [id number] 10:14:12 10:14:16 [facility] 2023-02-06 2023-02-06 Inpatient THAO OSORIO MDA MDA [id number] 15:39:36 16:04:43 [facility] 2023-02-06 2023-02-06 Inpatient THAO OSORIO MDA MDA [id number] [id number] 13:24:20 14:51:55 [facility] o 2023-02-06 2023-02-06 Inpatient THAO OSORIO MDA MDA [id number] [id number] 13:24:15 14:51:51 [facility] 2023-02-06 2023-02-06 Travel 1.2.840.1 1.2.820.179 3450 [id number] Univers 00:00:00 00:00:00 71362.1.1 350.1.13.41 ity of 3.412.2.7 2.2.7.3.698 [place] .3.145668 084.8 .[address] [facility] 2023-02-06 2023-02-06 Travel 1.2.840.1 1.2.072.767 [id number] Univers 00:00:00 00:00:00 31372.1.1 350.1.13.41 ity of 3.412.2.7 [place]7.3.698 [place] .3.849179 084.8 .[address] [facility] 2023-02-05 2023-02-05 Telephone Dee Power, 1.2.840.1 [id number] Univers 00:00:00 00:00:00 Vaibhav 49968.1.1 ity of 3.412.2.7 [place] .3.649891 MD Soares8 [facility] 2023-02-05 2023-02-05 Telephone Dee Power, 1.2.840.1 [id number] Univers 00:00:00 00:00:00 Vaibhav 40835.1.1 ity of 3.412.2.7 [place] .3.447162 MD Soares8 [facility] 2023-02-04 2023-02-04 [facility], 1.2.840.1 [id number] [facility] 09:45:00 12:39:12 Support Winter 12038.1.1 ity of [place] 3.412.2.7 [place] .3.917475 MD Soares8 [facility] 2023-02-04 2023-02-04 Clinical [facility], 1.2.840.1 [id number] [facility] 09:45:00 12:39:12 Support Winter 76597.1.1 ity of [place] 3.412.2.7 [place] .3.796486 MD Soares8 [facility] 2023-02-04 2023-02-04 Outpatient EL DEE POWERTAO MDA [id number] 12:23:55 12:34:00 VAIBHAV olivier 2023-02-04 2023-02-04 Outpatient KENYA CARRION MDA MDA [id number] 11:16:00 11:43:29 Lauri olivier 2023-02-04 2023-02-04 Follow-Up Dee Power, 1.2.840.1 [id number] Univers 10:40:00 11:00:00 Celyne 40252.1.1 ity of 3.412.2.7 [place] .3.515901 MD Blair [facility] 2023-02-04 2023-02-04 Follow-Up KYLAH Power, 1.2.840.1 [id number] Univers 10:40:00 11:00:00 Celyne 30983.1.1 ity of 3.412.2.7 [place] .3.922674 MD Blair [facility] 2023-02-04 2023-02-04 Travel 1.2.840.1 1.2.773.855 [id number] [facility] 00:00:00 00:00:00 36289.1.1 350.1.13.41 ity of 3.412.2.7 2.[place]7.3.698 [place] .3.376530 084.8 MD Blair [facility] 2023-02-04 2023-02-04 Travel 1.2.840.1 1.2.050.409 [id number] [facility] 00:00:00 00:00:00 16679.1.1 350.1.13.41 ity of 3.412.2.7 2.[place].7.3.698 [place] .3.945064 084.8 MD Blair [facility] 2023-02-03 2023-02-03 Outpatient KENYA CARRION [facility] [id number] 14:18:38 14:50:54 [facility] 2023-02-03 2023-02-03 Infusion Dee Power, 1.2.840.1 [id number] Univers 11:00:00 14:13:00 Celyne 68016.1.1 ity of 3.412.2.7 [place] .3.404918 MD Blair [facility] 2023-02-03 2023-02-03 Infusion KYLAH Power, 1.2.840.1 [id number] Univers 11:00:00 14:13:00 Celyne 36353.1.1 ity of 3.412.2.7 [place] .3.565665 MD Soares8 [facility] 2023-02-03 2023-02-03 Anabell Hdez, 1.2.840.1 [id number] [facility] 00:00:00 00:00:00 Only Lorena 79048.1.1 ity of Kayla 3.412.2.7 [place] .3.303346 MD Soares8 [facility] 2023-02-03 2023-02-03 Travel 1.2.840.1 1.2.252.662 [id number] [id number] [facility] 00:00:00 00:00:00 59641.1.1 350.1.13.41 ity of 3.412.2.7 2.2.7.3.698 [place] .3.845304 084.8 MD Blair [facility] 2023-02-03 2023-02-03 Anabell Hdez, 1.2.840.1 [id number] Univers 00:00:00 00:00:00 Only Lorena 94646.1.1 ity of Kayla 3.412.2.7 [place] .3.842119 MD Blair [facility] 2023-02-03 2023-02-03 Travel 1.2.840.1 1.2.120.478 [id number] Univers 00:00:00 00:00:00 58314.1.1 350.1.13.41 ity of 3.412.2.7 2.2.7.3.698 [place] .3.038574 084.8 MD Blair [facility] 2023-02-02 2023-02-02 Outpatient KENYA CARRION [facility] [id number] 13:32:42 14:29:34 [facility] 2023-02-02 2023-02-02 Travel 1.2.840.1 1.2.445.099 4236 [id number] Univers 00:00:00 00:00:00 76843.1.1 350.1.13.41 ity of 3.412.2.7 [place].3.698 [place] .3.748084 084.[address] .[address] [facility] 2023-02-02 2023-02-02 Travel 1.2.840.1 1.2.204.107 8125 [id number] Univers 00:00:00 00:00:00 46113.1.1 350.1.13.41 ity of 3.412.2.7 [place].3.698 [place] .3.407310 084.[address] [facility] 2023-01-26 2023-02-01 [facility] Felisa Rashid 1.2.840.1 [id number] [facility] 16:06:00 18:28:00 Jad Fall 01067.1.1 ity of Amanda Proctor 3.412.2.7 T Jaycee Castillo .3.853075 Brock Quijano .8 And Elian Goode [facility] 2023-01-26 2023[facility]02-01 [facility] 1.2.840.1 [id number] [facility] 16:06:00 18:28:00 Jad Fall 45525.1.1 ity of Amanda Proctor 3.412.2.7 T Jaycee Castillo .3.577931 Brock Quijano .Lilly And evelin Deshpande [facility] 2023-02-01 2023-02-01 Inpatient KENYA AGARWAL [facility] [id number] 15:12:03 15:12:06 Lauri [facility] 2023-01-31 2023-01-31 Letty Crane.2.840.1 [id number] Univers 00:00:00 00:00:00 Glenda Peñaloza 95473.1.1 i ty of 3.412.2.7 [place] .3.709438 MD Blair [facility] 2023-01-31 2023-01-31 Letty Crane.2.840.1 [id number] Univers 00:00:00 00:00:00 Glenda Peñaloza 72719.1.1 i ty of 3.412.2.7 [place] .3.940835 MD Soares8 [facility] 2023-01-29 2023-01-29 Inpatient KYLAH CARMONA TAO MDA [id number] 12:45:23 14:59:56 Suraj DESHPANDE n 2023-01-28 2023-01-28 Telephone Castillo, 1.2.840.1 [id number] 1104 [id number] Univers 00:00:00 00:00:00 Felisa Costa 92906.1.1 ity of 3.412.2.7 [place] .3.471393 MD Soares8 [facility] 2023-01-28 2023-01-28 Anabell Hdez 1.2.840.1 [id number] Univers 00:00:00 00:00:00 Only Lorena 32363.1.1 ity of Kayla 3.412.2.7 [place] .3.243322 MD Soares8 [facility] 2023-01-28 2023-01-28 Telephone Castillo, 1.2.840.1 [id number] 1104 [id number] Univers 00:00:00 00:00:00 Felisa Costa 37760.1.1 ity of 3.412.2.7 [place] .3.300086 MD Soares8 [facility] 2023-01-28 2023-01-28 Anabell Hdez 1.2.840.1 [id number] Univers 00:00:00 00:00:00 Only Lorena 74256.1.1 ity of Kayla 3.412.2.7 [place] .3.762331 MD Soares8 [facility] 2023-01-27 2023-01-27 Inpatient KYLAH BISHOP MDA MDA [id number] 17:00:08 17:15:25 PARK olivier 2023-01-27 2023-01-27 Inpatient KENYA CARRION MDA MDA [id number] MD 16:29:18 16:29:[facility] 2023-01-26 2023-01-26 Travel 1.2.840.1 1.2.336.744 7460 [id number] Univers 00:00:00 00:00:00 93015.1.1 350.1.13.41 ity of 3.412.2.7 [place]7.3.698 [place] .3.740516 084.8 MD Blair [facility] 2023-01-26 2023-01-26 Telephone Castillo, 1.2.840.1 [id number] 1104 [id number] Univers 00:00:00 00:00:00 Felisa M 79151.1.1 ity of 3.412.2.7 [place] .3.487515 MD Blair [facility] 2023-01-26 2023-01-26 Telephone Castillo, 1.2.840.1 [id number] 1104 [id number] Univers 00:00:00 00:00:00 Felisa M 85637.1.1 ity of 3.412.2.7 [place] .3.098505 MD Blair [facility] 2023-01-26 2023-01-26 Travel 1.2.840.1 1.2.770.096 3358 [id number] Univers 00:00:00 00:00:00 92105.1.1 350.1.13.41 ity of 3.412.2.7 [place]7.3.698 [place] .3.002510 084.8 MD Blair [facility] 2023-01-26 2023-01-26 Telephone Castillo, 1.2.840.1 [id number] 1104 [id number] Univers 00:00:00 00:00:00 Felisa M 93090.1.1 ity of 3.412.2.7 [place] .3.245345 MD Blair [facility] 2023-01-26 2023-01-26 Telephone Castillo, 1.2.840.1 [id number] 1104 [id number] Univers 00:00:00 00:00:00 Felisa M 87062.1.1 ity of 3.412.2.7 [place] .3.393420 MD Balir [facility] 2023-01-25 2023-01-25 [facility] Kenya Agarwal 1.2.840.1 [id number] Univers 06:00:00 23:59:00 Encounter Y. 88916.1.1 it y of 3.412.2.7 [place] .3.439993 MD Soares8 [facility] 2023-01-25 2023-01-25 [facility] AgarwalKenya 1.2.840.1 [id number] 1 [id number] Univers 06:00:00 23:59:00 Encounter Y. 04919.1.1 it y of 3.412.2.7 [place] .3.116728 MD Blair [facility] 2023-01-25 2023-01-25 [facility] Kenya Agarwal Y. 1.2.840.1 [id number] Univers 11:30:00 12:09:30 Lian Jaramillo 25312.1.1 ity of 3.412.2.7 [place] .3.673390 MD Blair [facility] 2023-01-25 2023-01-25 [facility] Kenya Agarwal. 1.2.840.1 [id number] 23 [id number] Univers 11:30:00 12:09:30 Lian Jaramillo 97324.1.1 ity of 3.412.2.7 [place] .3.564986 MD Blair [facility] 2023-01-25 2023-01-25 Telephone Castillo, 1.2.840.1 [id number] 1104 [id number] Univers 00:00:00 00:00:00 Felisa Costa 49176.1.1 ity of 3.412.2.7 [place] .3.268751 MD Blair [facility] 2023-01-25 2023-01-25 Telephone Jonathan, 1.2.840.1 [id number] 1104 [id number] Univers 00:00:00 00:00:00 Felisa Costa 39370.1.1 ity of 3.412.2.7 [place] .3.529451 MD Blair [facility] 2023-01-22 2023-01-22 Outpatient KENYA CARRION [facility] [id number] 14:08:15 14:37:49 [facility] 2023-01-22 2023-01-22 Nutrition Kenya Agarwal. 1.2.840.1 [id number] 23 [id number] Univers 10:30:00 13:09:10 Lian Jaramillo 83084.1.1 ity of 3.412.2.7 [place] .3.976437 MD Blair [facility] 2023-01-22 2023-01-22 Nutrition Kenya Carrion. 1.2.840.1 [id number] 23 [id number] Univers 10:30:00 13:09:10 Lian Jaramillo 92619.1.1 ity of 3.412.2.7 [place] .3.639829 MD Blair [facility] 2023-01-22 2023-01-22 Travel 1.2.840.1 1.2.045.791 1770 [id number] Univers 00:00:00 00:00:00 10107.1.1 350.1.13.41 ity of 3.412.2.7 [place]7.3.698 [place] .3.456637 084.Lilly Blair [facility] 2023-01-22 2023-01-22 Travel 1.2.840.1 1.2.704.402 7418 [id number] Univers 00:00:00 00:00:00 02955.1.1 350.1.13.41 ity of 3.412.2.7 2.2.7.3.698 [place] .3.678171 084.8 MD Blair [facility] 2023-01-21 2023-01-21 Infusion Lemuel, 1.2.840.1 [id number] 81571 31122 Univers 08:45:00 14:45:37 Lorena 90751.1.1 ity of Kayla 3.412.2.7 [place] .3.929505 MD Blair [facility] 2023-01-21 2023-01-21 Infusion KYLAH Hdez, 1.2.840.1 [id number] [id number] Univers 08:45:00 14:45:37 Lorena 89386.1.1 ity of Kayla 3.412.2.7 [place] .3.539630 MD Blair [facility] 2023-01-21 2023-01-21 Outpatient KENYA CARRION MDA MDA [id number] 13:30:26 14:05:07 [facility] 2023-01-21 2023-01-21 Follow-Up Dee Power, 1.2.840.1 [id number] Univers 08:00:00 09:18:40 Celarturo 54076.1.1 ity of 3.412.2.7 [place] .3.001675 MD Saores8 [facility] 2023-01-21 2023-01-21 Follow-Up KYLAH Power, 1.2.840.1 [id number] Univers 08:00:00 09:18:40 Vaibhav 79515.1.1 ity of 3.412.2.7 [place] .3.208429 MD Blair [facility] 2023-01-21 2023-01-21 Travel 1.2.840.1 1.2.498.542 8220 [id number] Univers 00:00:00 00:00:00 18641.1.1 350.1.13.41 ity of 3.412.2.7 [place]7.3.698 [place] .3.682895 Mariann.Lilly Blair [facility] 2023-01-21 2023-01-21 Travel 1.2.840.1 1.2.649.302 7929 021368 Univers 00:00:00 00:00:00 78455.1.1 350.1.13.41 ity of 3.412.2.7 2.2.7.3.698 [place] .3.566470 084Johnnie Blair [facility] 2023-01-20 2023-01-20 Outpatient KENYA CARRION MDA MDA [id number] 12:58:49 13:48:03 Lauri o n 2023-01-20 2023-01-20 Consult Vicenteyalagmary 1.2.840.1 [id number] 11 [id number] Univers 11:20:00 12:57:27 a, 51086.1.1 ity of [place]han[place].412.2.7 [place] .3.103867 MD Soares8 [facility] 2023-01-20 2023-01-20 Consult KYLAH Ponce 1.2.840.1 [id number] 11 [id number] Univers 11:20:00 12:57:27 a, 43862.1.1 ity of [place]han[place].412.2.7 [place] .3.046298 MD Blair [facility] 2023-01-20 2023-01-20 Outpatient KYLAH HDEZ MDA [facility] [id number] 12:44:37 12:57:03 LORENA Suraj so soy 2023-01-20 2023-01-20 Documentat Nabil, 1.2.840.1 [id number] Univers 00:00:00 00:00:00 ion Nereida H 67328.1.1 it y of 3.412.2.7 [place] .3.704200 MD Blair [facility] 2023-01-20 2023-01-20 Travel 1.2.840.1 1.2.076.532 9449 [id number] Univers 00:00:00 00:00:00 80751.1.1 350.1.13.41 ity of 3.412.2.7 2.2.7.3.698 [place] .3.509959 [place] Blair [facility] 2023-01-20 2023-01-20 Documentat Nabil 1.2.840.1 [id number] 035 [id number] Univers 00:00:00 00:00:00 ion Nereida H 36083.1.1 it y of 3.412.2.7 [place] .3.115967 MD Blair [facility] 2023-01-20 2023-01-20 Travel 1.2.840.1 1.2.225.438 7662 203712 Univers 00:00:00 00:00:00 07931.1.1 350.1.13.41 ity of 3.412.2.7 2.[place].7.3.698 [place] .3.555271 084.8 MD Blair [facility] 2023-01-19 2023-01-19 Clinical Luu, 1.2.840.1 [id number] 07323 94026 Univers 15:30:00 16:24:21 Support Winter 12088.1.1 ity of Gini 3.412.2.7 [place] .3.004036 MD Soares8 [facility] 2023-01-19 2023-01-19 Clinical Jus, 1.2.840.1 [id number] [id number] Univers 15:30:00 16:24:21 Support Winter 18291.1.1 ity of Gini 3.412.2.7 [place] .3.480377 MD Soares8 [facility] 2023-01-19 2023-01-19 Outpatient KENYA CARRION [facility] [id number] 14:39:40 15:15:48 Lauri olivier 2023-01-19 2023-01-19 Outpatient Marsha SHERIFF [facility] [id number] Univers 09:00:00 09:00:00 NEREIDA pierre of [facility] 2023-01-19 2023-01-19 Travel 1.2.840.1 1.2.189.261 8424 [id number] [facility] 00:00:00 00:00:00 80116.1.1 350.1.13.41 ity of 3.412.2.7 [place].7.3.698 [place] .3.928958 084.8 MD Soares8 [facility] 2023-01-19 2023-01-19 Travel 1.2.840.1 1.2.147.405 3693 [id number] Univers 00:00:00 00:00:00 54933.1.1 350.1.13.41 ity of 3.412.2.7 2.2.7.3.698 [place] .3.866384 084.8 .8 [facility] [place] [address] 2023-01-11 2023-01-18 [facility] 1.2.840.1 [id number] Univers 19:31:00 19:34:00 Encounter Roberto Carlos Walsh 27919.1.1 ity of Chung Romero [facility] 3.412.2.7 [facility] .3.797408 Brock Quijano .8 [facility] 2023-01-11 2023-01-18 [facility] 1.2.840.1 [id number] [facility] 19:31:00 19:34:00 Encounter Roberto Carlos Walsh 21670.1.1 [facility] 3.412.2.7 [facility] .3.888307 Brock Quijano .8 [facility] 2023-01-17 2023-01-18 Inpatient KYLAH DIOR MDA MDA [id number] 23:34:01 00:08:34 BROCK olivier 2023-01-15 2023-01-15 Outpatient R RADIOLOGY [facility] [id number] Univers 10:00:00 10:00:00 ity of [facility] 2023-01-14 2023-01-14 Inpatient KYLAH DIOR MDA MDA [id number] 13:45:42 14:35:12 BORCK olivier 2023-01-14 2023-01-14 Inpatient EL KENYA AGARWAL MDA MDA [id number] 10:28:01 10:28:06 Lauri olivier 2023-01-14 2023-01-14 Letty Beck.2.840.1 [id number] [facility] 00:00:00 00:00:00 Only Mukund 78725.1.1 [place]2.7 [place] .3.1607[place] .[address] [facility] 2023-01-14 2023-01-14 Anabell Gorman, 1.2.840.1 [id number] 11 [id number] Univers 00:00:00 00:00:00 Only Mukund 39531.1.1 [place].7 [place] .3.688661 MD Soares8 [facility] 2023-01-13 2023-01-13 Inpatient KYLAH DIOR TAO [facility] [id number] 18:17:55 18:32:15 BROCK [facility] 2023-01-12 2023-01-12 Inpatient KENYA CARRION [facility] [id number] MD 16:36:56 16:36:59 [facility] 2023-01-12 2023-01-12 Refmaddie Ordaz, 1.2.840.1 [id number] Univers 00:00:00 00:00:00 Cerena 60187.1.1 ity of 3.412.2.7 [place] .3.951989 MD Soares8 [facility] 2023-01-12 2023-01-12 Refill Orlin, 1.2.840.1 [id number] Univers 00:00:00 00:00:00 Cerena 52892.1.1 ity of 3.412.2.7 [place] .3.767519 MD Blair [facility] 2023-01-11 2023-01-11 Travel 1.2.840.1 1.2.301.106 8129 [id number] Univers 00:00:00 00:00:00 45714.1.1 350.1.13.41 ity of 3.412.2.7 2.2.7.3.698 [place] .3.559362 084.8 MD Soares8 [facility] 2023-01-11 2023-01-11 Telephone Jonathan, 1.2.840.1 [id number] 1103 [id number] Univers 00:00:00 00:00:00 Felisa M 24724.1.1 ity of 3.412.2.7 [place] .3.950520Dominique Soares[address] [facility] 2023-01-11 2023-01-11 Travel 1.2.840.1 1.2.175.372 9385 [id number] Univers 00:00:00 00:00:00 44487.1.1 350.1.13.41 ity of 3.412.2.7 2.2.7.3.698 [place] .3.922373 084.8 MD Soares8 [facility] 2023-01-11 2023-01-11 Telephone Jonathan 1.2.840.1 [id number] 1103 [id number] Univers 00:00:00 00:00:00 Felisa Napoleon 41815.1.1 ity of 3.412.2.7 [place] .3.137811 MD Blair [facility] 2023-01-08 2023-01-08 Outpatient KENYA CARRION [facility] MDA [id number] 13:23:30 14:05:33 [facility] 2023-01-08 2023-01-08 Nutrition Kenya Agarwal. 1.2.840.1 [id number] Univers 10:00:00 10:47:33 Lian Jaramillo 28091.1.1 ity of 3.412.2.7 [place] .3.755399 MD Blair [facility] 2023-01-08 2023-01-08 Nutrition Kenya Carrion. 1.2.840.1 [id number] Univers 10:00:00 10:47:33 Lian Jaramillo 44732.1.1 ity of 3.412.2.7 [place] .3.618263 MD Blair [facility] 2023-01-08 2023-01-08 Travel 1.2.840.1 1.2.117.703 3608 [id number] Univers 00:00:00 00:00:00 56652.1.1 350.1.13.41 ity of 3.412.2.7 2.2.7.3.698 [place] .3.691666 084.8 MD Blair [facility] 2023-01-08 2023-01-08 Travel 1.2.840.1 1.2.476.214 0663 [id number] Univers 00:00:00 00:00:00 45979.1.1 350.1.13.41 ity of 3.412.2.7 2.2.7.3.698 [place] .3.943797 084.8 MD Soares8 [facility] 2023-01-07 2023-01-07 Infusion Lemuel, 1.2.840.1 [id number] Univers 09:00:00 13:58:13 Lorena 74667.1.1 ity of Kayla 3.412.2.7 [place] .3.797734 MD Soares8 [facility] 2023-01-07 2023-01-07 Infusion KYLAH Hdez, 1.2.840.1 [id number] 56116 Univers 09:00:00 13:58:13 Lorena 62601.1.1 ity of Kayla 3.412.2.7 [place] .3.098774 MD Soares8 [facility] 2023-01-07 2023-01-07 Follow-Up Lemuel, 1.2.840.1 [id number] 1102 [id number] Univers 08:40:00 09:41:57 Lorena 38809.1.1 ity of Kayla 3.412.2.7 [place] .3.380416 MD Soares8 [facility] 2023-01-07 2023-01-07 Follow-Up KYLAH Hdez, 1.2.840.1 [id number] 1102 [id number] Univers 08:40:00 09:41:57 Lorena 47576.1.1 ity of Kayla 3.412.2.7 [place] .3.192107 MD Soares8 [facility] 2023-01-07 2023-01-07 Outpatient KENYA CARRION MDA MDA [id number] 09:08:41 09:08:41 Lauri olivier 2023-01-07 2023-01-07 Outpatient KYLAH HDEZ MDA MDA [id number] 08:18:38 08:32:37 LORENA olivier 2023-01-07 2023-01-07 Travel 1.2.840.1 1.2.312.566 6532 [id number] Univers 00:00:00 00:00:00 07320.1.1 350.1.13.41 ity of 3.412.2.7 2.2.7.3.698 [place] .3.729547 084.8 MD Blair [facility] 2023-01-07 2023-01-07 Travel 1.2.840.1 1.2.356.267 2043 [id number] Univers 00:00:00 00:00:00 82818.1.1 350.1.13.41 ity of 3.412.2.7 2.2.7.3.698 [place] .3.277357 084.8 MD Blair [facility] 2023-01-06 2023-01-06 Outpatient KENYA CARRION [facility] [id number] 14:37:02 14:59:48 [facility] 2023-01-06 2023-01-06 Infusion Lemuel, 1.2.840.1 [id number] [id number] Univers 11:00:00 13:00:00 Lorena 22812.1.1 ity of Kayla 3.412.2.7 [place] .3.368320 MD Blair [facility] 2023-01-06 2023-01-06 Infusion KYLAH Hdez, 1.2.840.1 [id number] 14488 Univers 11:00:00 13:00:00 Lorena 93322.1.1 ity of Kayla 3.412.2.7 [place] .3.848024 MD Soares8 [facility] 2023-01-06 2023-01-06 Travel 1.2.840.1 1.2.308.515 6413 [id number] Univers 00:00:00 00:00:00 79088.1.1 350.1.13.41 ity of 3.412.2.7 2.2.7.3.698 [place] .3.902557 084.8 MD Blair [facility] 2023-01-06 2023-01-06 Travel 1.2.840.1 1.2.477.265 9581 [id number] Univers 00:00:00 00:00:00 49277.1.1 350.1.13.41 ity of 3.412.2.7 2.2.7.3.698 [place] .3.947826 084.[address] .[address] [facility] 2023-01-05 2023-01-05 Outpatient KENYA CARRION [facility] [id number] 13:16:48 13:59:03 [facility] 2023-01-05 2023-01-05 Travel 1.2.840.1 1.2.302.595 4051 [id number] Univers 00:00:00 00:00:00 53170.1.1 350.1.13.41 ity of 3.412.2.7 2.2.7.3.698 [place] .3.115712 084.8 MD Soares8 [facility] 2023-01-05 2023-01-05 Travel 1.2.840.1 1.2.602.133 4639 [id number] Univers 00:00:00 00:00:00 96975.1.1 350.1.13.41 ity of 3.412.2.7 2.2.7.3.698 [place] .3.461695 084.8 MD Blair [facility] 2023-01-04 2023-01-04 Dwayne Hdez 1.2.840.1 [id number] [id number] Univers 10:45:00 14:51:21 Lorena 16223.1.1 ity of Kayla 3.412.2.7 [place] .3.542388 MD Soares8 [facility] 2023-01-04 2023-01-04 Infusion KYLAH Hdez, 1.2.840.1 [id number] 24868 Univers 10:45:00 14:51:21 Lorena 01957.1.1 ity of Kayla 3.412.2.7 [place] .3.357724 MD Soares8 [facility] 2023-01-042023-01-04 Clinical Luu, 1.2.840.1 [id number] 24100 Univers 14:00:00 14:25:20 Support Winter 43695.1.1 ity of Gini 3.412.2.7 [place] .3.691212 MD Blair [facility] 2023-01-04 2023-01-04 Clinical [facility], 1.2.840.1 [id number] 09099 20089 Univers 14:00:00 14:25:20 Support Winter 64018.1.1 ity of Gini 3.412.2.7 [place] .3.308707 MD Soares8 [facility] 2023-01-04 2023-01-04 Outpatient KENYA CARRION [facility] [id number] 13:10:05 13:43:01 [facility] 2023-01-04 2023-01-04 Travel 1.2.840.1 1.2.920.918 0376 [id number] Univers 00:00:00 00:00:00 21039.1.1 350.1.13.41 ity of 3.412.2.7 2.2.7.3.698 [place] .3.038799 084.8 MD Blair [facility] 2023-01-04 2023-01-04 Travel 1.2.840.1 1.2.684.859 1460 [id number] Univers 00:00:00 00:00:00 17292.1.1 350.1.13.41 ity of 3.412.2.7 2.2.7.3.698 [place] .3.508622 084.8 MD Blair [facility] 2023-01-01 2023-01-01 Infusion Lemuel, 1.2.840.1 [id number] 48176 Univers 09:00:00 14:20:57 Lorena 21545.1.1 ity of Kayla 3.412.2.7 [place] .3.234966 MD Blair [facility] 2023-01-01 2023-01-01 Infusion KYLAH Hdez, 1.2.840.1 [id number] Univers 09:00:00 14:20:57 Lorena 83266.1.1 ity of Kayla 3.412.2.7 [place] .3.910115 MD Blair [facility] 2023-01-01 2023-01-01 Outpatient KENYA CARRION MDA MDA [id number] 13:31:26 14:06:59 Lauri olivier 2023-01-01 2023-01-01 Follow-Up Dee Power, 1.2.840.1 [id number] Univers 08:40:00 09:31:03 Celyne 31876.1.1 ity of 3.412.2.7 [place] .3.128947 MD Blair [facility] 2023-01-01 2023-01-01 Follow-Up KYLAH Power, 1.2.840.1 [id number] Univers 08:40:00 09:31:03 Celarturo 82635.1.1 ity of 3.412.2.7 [place] .3.378802 MD Blair [facility] 2023-01-01 2023-01-01 Outpatient KYLAH HDEZ MDA MDA [id number] 08:19:22 08:27:50 LORENA Ruelas so soy 2023-01-01 2023-01-01 Rohith Guardado 1.2.840.1 [id number] Univers 00:00:00 00:00:00 Brittni A 92547.1.1 ity of 3.412.2.7 [place] .3.741022 MD Blair [facility] 2023-01-01 2023-01-01 Travel 1.2.840.1 1.2.711.359 [id number] Univers 00:00:00 00:00:00 01526.1.1 350.1.13.41 ity of 3.412.2.7 2.[place]7.3.698 [place] .3.598835 084.8 [facility] 2023-01-01 Rohith Guardado 1.2.840.1 [id number] Univers 00:00:00 00:00:00 Brittni Benjamin 61775.1.1 ity of 3.412.2.7 [place] .3.031978 MD Blair [facility] 2023-01-01 2023-01-01 Travel 1.2.840.1 1.2.059.896 [id number] Univers 00:00:00 00:00:00 76075.1.1 350.1.13.41 ity of 3.412.2.7 2.[place].7.3.698 [place] .3.494881 084.8 MD Blair [facility] 2022-12-31 2022-12-31 Telephone Carnlul, 1.2.840.1 [id number] Univers 00:00:00 00:00:00 Tita Mayorga 99151.1.1 ity of 3.412.2.7 [place] .3.050713 MD Blair [facility] 2022-12-31 2022-12-31 Orders Lemuel, 1.2.840.1 [id number] Univers 00:00:00 00:00:00 Only Lorena 93397.1.1 ity of Kayla 3.412.2.7 [place] .3.869880 MD Blair [facility] 2022-12-31 2022-12-31 Telephone Doyle, 1.2.840.1 [id number] Univers 00:00:00 00:00:00 Tita Mayorga 12404.1.1 ity of 3.412.2.7 [place] .3.463701 MD Blair [facility] 2022-12-31 2022-12-31 Anabell Hdez, 1.2.840.1 [id number] Univers 00:00:00 00:00:00 Only Lorena 49421.1.1 ity of Kayla 3.412.2.7 [place] .3.453371 MD Blair [facility] 2022-12-30 [facility] [id number] Univers 09:33:09 23:59:00 Encounter Miguel Fernandez 80705.1.1 ity of 3.412.2.7 [place] .3.971434 MD Blair [facility] 2022-12-30 2022-12-30 [facility], 1.2.840.1 [id number] Univers 09:33:09 23:59:00 Encounter Miguel Fernandez 84111.1.1 ity of 3.412.2.7 [place] .3.025114 MD Blair [facility] 2022-12-30 2022-12-30 Outpatient KENYA CARRION [facility] [id number] 13:48:18 14:15:54 [facility] 2022-12-30 2022-12-30 Travel 1.2.840.1 1.2.369.340 [id number] Univers 00:00:00 00:00:00 07853.1.1 350.1.13.41 ity of 3.412.2.7 2.2.7.3.698 [place] .3.884101 084.8 MD Blair [facility] 2022-12-30 2022-12-30 Travel 1.2.840.1 1.2.870.947 [id number] Univers 00:00:00 00:00:00 65447.1.1 350.1.13.41 ity of 3.412.2.7 2.[place].7.3.698 [place] .3.038605 084.8 MD Blair [facility] 2022-12-29 2022-12-29 [facility], 1.2.840.1 [id number] Univers 08:00:00 23:59:00 Encounter Suzanne 19136.1.1 it y of 3.412.2.7 [place] .3.336121 MD Blair [facility] 2022-12-29 2022-12-29 [facility], 1.2.840.1 [id number] Univers 08:00:00 23:59:00 Encounter Suzanne 88814.1.1 it y of 3.412.2.7 [place] .3.892490 MD Soares8 [facility] 2022-12-29 2022-12-29 Outpatient KENYA CARRION MDA, MDA [id number] 13:04:30 13:32:42 [facility] 2022-12-29 2022-12-29 Travel 1.2.840.1 1.2.962.108 0622 [id number] Univers 00:00:00 00:00:00 10161.1.1 350.1.13.41 ity of 3.412.2.7 [place]7.3.698 [place] .3.8636[place] 084.8 MD Soares8 [facility] 2022-12-29 2022-12-29 Travel 1.2.840.1 1.2.972.108 2387 [id number] Univers 00:00:00 00:00:00 22049.1.1 350.1.13.41 ity of 3.412.2.7 [place].7.3.698 [place] .3.696404 084.8 MD Blair [facility] 2022-12-28 2022-12-28 [facility], 1.2.840.1 [id number] Univers 14:00:00 15:17:09 Support Winter 45256.1.1 ity of Gini 3.412.2.7 [place] .3.150154 MD Blair [facility] 2022-12-28 2022-12-28 Clinical [facility], 1.2.840.1 [id number] Univers 14:00:00 15:17:09 Support Winter 15779.1.1 ity of Gini 3.412.2.7 [place] .3.415550 MD Blair [facility] 2022-12-28 2022-12-28 Outpatient KENYA CARRION MDA MDA [id number] 13:27:37 14:08:09 [facility] 2022-12-28 2022-12-28 Kenya Gastelum 1.2.840.1 [id number] Univers 10:00:00 10:53:45 Lian Jaramillo 89765.1.1 ity of 3.412.2.7 [place] .3.941613 MD Blair [facility] 2022-12-28 2022-12-28 Nutrition Kenya Carrion. 1.2.840.1 [id number] 23 [id number] Univers 10:00:00 10:53:45 Lian Jaramillo 71049.1.1 ity of 3.412.2.7 [place] .3.818104 MD Blair [facility] 2022-12-28 2022-12-28 Travel 1.2.840.1 1.2.716.076 9284 [id number] [facility] 00:00:00 00:00:00 85538.1.1 350.1.13.41 ity of 3.412.2.7 2.[place].7.3.698 [place] .3.389311 084.8 MD Blair [facility] 2022-12-28 2022-12-28 Travel 1.2.840.1 1.2.488.768 2805 [id number] [facility] 00:00:00 00:00:00 62943.1.1 350.1.13.41 ity of 3.412.2.7 2.[place].7.3.698 [place] .3.714071 084.8 MD Blair [facility] 2022-12-25 2022-12-25 Outpatient KENYA CARRION [facility] [id number] 14:06:37 15:08:07 [facility] 2022-12-25 2022-12-25 Travel 1.2.840.1 1.2.609.803 9057 [id number] [facility] 00:00:00 00:00:00 62068.1.1 350.1.13.41 ity of 3.412.2.7 2.[place].7.3.698 [place] .3.505781 084.8 MD Blair [facility] 2022-12-25 2022-12-25 Travel 1.2.840.1 1.2.953.451 2640 [id number] Univers 00:00:00 00:00:00 24922.1.1 350.1.13.41 ity of 3.412.2.7 2.[place].7.3.698 [place] .3.675185 084.8 MD [facility]8 [facility]22-12-24 2022-12-24 Infusion Lemuel, 1.2.840.1 [id number] [id number] Univers 08:45:00 15:46:35 Lorena 24624.1.1 ity of Kayla 3.412.2.7 [place] .3.034558 MD Soares8 [facility] 2022-12-24 2022-12-24 Infusion EL Lemuel, 1.2.840.1 [id number] [id number] Univers 08:45:00 15:46:35 Lorena 67742.1.1 ity of Kayla 3.412.2.7 [place] .3.884685 MD Soares8 [facility] 2022-12-24 2022-12-24 Outpatient KENYA CARRION MDA MDA [id number] 13:51:59 14:40:52 Lauri olivier 2022-12-24 2022-12-24 Follow-Up Dee Power, 1.2.840.1 [id number] Univers 08:20:00 10:15:28 Celyne 56180.1.1 ity of 3.412.2.7 [place] .3.766774 MD [facility]8 [facility] 2022-12-24 2022-12-24 Follow-Up KYLAH Power, 1.2.840.1 [id number] Univers 08:20:00 10:15:28 Celyne 21199.1.1 ity of 3.412.2.7 [place] .3.697487 MD Blair [facility] 2022-12-24 2022-12-24 Outpatient KYLAH HDEZ MDA MDA [id number] 09:15:48 09:27:18 LORENA olivier 2022-12-24 2022-12-24 Telephone Castillo, 1.2.840.1 [id number] 1103 [id number] Univers 00:00:00 00:00:00 Felisa Costa 19649.1.1 ity of 3.412.2.7 [place] .3.692312 MD Blair [facility] 2022-12-24 2022-12-24 Telephone Kenya Agarwal 1.2.840.1 [id number] Univers 00:00:00 00:00:00 Henri. 86711.1.1 ity of 3.412.2.7 [place] .3.390470 MD Blair [facility] 2022-12-24 2022-12-24 Telephone Doyle, 1.2.840.1 [id number] 1103 [id number] Univers 00:00:00 00:00:00 Tita Mayorga 52085.1.1 ity of 3.412.2.7 [place] .3.294603 MD Blair [facility] 2022-12-24 2022-12-24 Telephone Doyle, 1.2.840.1 [id number] 1103 [id number] Univers 00:00:00 00:00:00 Tita Mayorga 75886.1.1 ity of 3.412.2.7 [place] .3.054388 MD Blair [facility] 2022-12-24 2022-12-24 Telephone Dee Monteiroe, 1.2.840.1 [id number] Univers 00:00:00 00:00:00 Vaibhav 60371.1.1 ity of 3.412.2.7 [place] .3.036553 MD Blair [facility] 2022-12-24 2022-12-24 Travel 1.2.840.1 1.2.811.232 7035 [id number] Univers 00:00:00 00:00:00 48461.1.1 350.1.13.41 ity of 3.412.2.7 2.2.7.3.698 [place] .3.572223 084.8 MD Blair [facility] 2022-12-24 2022-12-24 Orders Dee Power 1.2.840.1 [id number] 11 [id number] Univers 00:00:00 00:00:00 Only Vaibhav 66233.1.1 ity of 3.412.2.7 [place] .3.897705 MD Blair [facility] 2022-12-24 2022-12-24 Refmaddie Sheriff [facility] 1.2.840.114 [id number] Univers 00:00:00 00:00:00 [facility] 350.1.13.10 it y of CLARA 4.2.7.2.686 Frankie as JAVIER?BLEA [id number] [address] OFFICE BUILDING 2022-12-24 2022-12-24 Telephone Jonathan, 1.2.840.1 [id number] 1103 [id number] Univers 00:00:00 00:00:00 Felisa Costa 73283.1.1 ity of 3.412.2.7 [place] .3.781249 MD Soares8 [facility] 2022-12-24 2022-12-24 Telephone Kenya Agarwal 1.2.840.1 [id number] Univers 00:00:00 00:00:00 Y. 69723.1.1 ity of 3.412.2.7 [place] .3.419158 MD Blair [facility] 2022-12-24 2022-12-24 Telephone Doyle, 1.2.840.1 [id number] 1103 [id number] Univers 00:00:00 00:00:00 Tita Mayorga 40322.1.1 ity of 3.412.2.7 [place] .3.979144 MD Blair [facility] 2022-12-24 2022-12-24 Telephone Doyle, 1.2.840.1 [id number] 1103 [id number] Univers 00:00:00 00:00:00 Tita Mayorga 26273.1.1 ity of 3.412.2.7 [place] .3.412810 MD Blair [facility] 2022-12-24 2022-12-24 Telephone Dee Power, 1.2.840.1 [id number] Univers 00:00:00 00:00:00 Celyne 17697.1.1 ity of 3.412.2.7 [place] .3.765428 MD Soares8 [facility] 2022-12-24 2022-12-24 Travel 1.2.840.1 1.2.750.854 1076 [id number] Univers 00:00:00 00:00:00 32894.1.1 350.1.13.41 ity of 3.412.2.7 2.2.7.3.698 [place] .3.080318 084.8 .[address] [facility] 2022-12-24 2022-12-24 [facility], 1.2.840.1 [id number] 11 [id number] Univers 00:00:00 00:00:00 Only Celyne 12177.1.1 ity of 3.412.2.7 [place] .3.473489 MD Soares8 [facility] 2022-12-23 2022-12-23 [facility], 1.2.840.1 [id number] [id number] Univers 09:30:00 23:59:00 Encounter Otilia 06979.1.1 it y of 3.412.2.7 [place] .3.678988 MD Blair [facility] 2022-12-23 2022-12-23 [facility], 1.2.840.1 [id number] Univers 09:30:00 23:59:00 Encounter Otilia 62652.1.1 it y of 3.412.2.7 [place] .3.251614 MD Soares8 [facility] 2022-12-23 2022-12-23 Outpatient KENYA CARRION [facility] MDA [id number] 13:50:34 14:48:40 Lauri [facility] 2022-12-23 2022-12-23 Clinical Winter Luu 1.2.840.3 [id number] [facility] 10:15:00 10:30:00 Support Dony Clahoun 36944.1.1 ity of 3.412.2.7 [place] .3.194327 MD Blair [facility] 2022-12-23 2022-12-23 Clinical EL Jus, Winter Gini 1.2.840.0 814 [id number] Univers 10:15:00 10:30:00 Support Dony Calhoun 35943.1.1 ity of 3.412.2.7 [place] .3.420617 MD Soares8 [facility] 2022-12-23 2022-12-23 Documentat Jus, 1.2.840.1 [id number] [id number] Univers 00:00:00 00:00:00 ion Winter 12692.1.1 ity of Gini 3.412.2.7 [place] .3.545726 MD Soares8 [facility] 2022-12-23 2022-12-23 Telephone Dee Power, 1.2.840.1 [id number] Univers 00:00:00 00:00:00 Vaibhav 01554.1.1 ity of 3.412.2.7 [place] .3.870421 MD Soares8 [facility] 2022-12-23 2022-12-23 Telephone Doyle, 1.2.840.1 [id number] 1103 [id number] Univers 00:00:00 00:00:00 Tita Mayorga 50080.1.1 ity of 3.412.2.7 [place] .3.706393 MD Blair [facility] 2022-12-23 2022-12-23 Travel 1.2.840.1 1.2.359.405 7854 [id number] Univers 00:00:00 00:00:00 13887.1.1 350.1.13.41 ity of 3.412.2.7 2.2.7.3.698 [place] .3.849036 084.8 MD Blair [facility] 2022-12-23 2022-12-23 Orders Lemuel, 1.2.840.1 [id number] Univers 00:00:00 00:00:00 Only Lorena 21462.1.1 ity of Kayla 3.412.2.7 [place] .3.478149 MD Soares8 [facility] 2022-12-23 2022-12-23 Documentat Luu, 1.2.840.1 [id number] [id number] Univers 00:00:00 00:00:00 jennifer Max 47714.1.1 ity of Gini 3.412.2.7 [place] .3.662626 MD Soares8 [facility] 2022-12-23 2022-12-23 Telephone Dee Power, 1.2.840.1 [id number] Univers 00:00:00 00:00:00 Vaibhav 58236.1.1 ity of 3.412.2.7 [place] .3.871739 MD Soares8 [facility] 2022-12-23 2022-12-23 Telephone Doyle, 1.2.840.1 [id number] 1103 [id number] Univers 00:00:00 00:00:00 Tita Mayorga 04088.1.1 ity of 3.412.2.7 [place] .3.690734 MD Soares8 [facility] 2022-12-23 2022-12-23 Travel 1.2.840.1 1.2.410.581 6165 [id number] Univers 00:00:00 00:00:00 82731.1.1 350.1.13.41 ity of 3.412.2.7 2.2.7.3.698 [place] .3.271184 084.8 MD Soares8 [facility] 2022-12-23 2022-12-23 Orders Lemuel, 1.2.840.1 [id number] Univers 00:00:00 00:00:00 Only Lorena 58173.1.1 ity of Kayla 3.412.2.7 [place] .3.730431 MD Blair [facility] 2022-12-18 2022-12-18 Orders Lan, 1.2.840.1 [id number] Univers 00:00:00 00:00:00 Only Lindy 57700.1.1 ity of Ashleigh 3.412.2.7 [place] .3.041427 .[address] [facility] 2022-12-18 2022-12-18 Orders Lan, 1.2.840.1 [id number] [id number] Univers 00:00:00 00:00:00 Only Lindy 21123.1.1 ity of Ashleigh 3.412.2.7 [place] .3.855926 .[address] [facility] 2022-12-18 2022-12-18 Orders Lan, 1.2.840.1 [id number] 00633 Univers 00:00:00 00:00:00 Only Lindy 06932.1.1 ity of Ashleigh 3.412.2.7 [place] .3.146054 .[address] [facility] 2022-12-18 2022-12-18 Orders [employer], 1.2.840.1 [id number] Univers 00:00:00 00:00:00 Only Lindy 23465.1.1 ity of Ashleigh 3.412.2.7 [place] .3.906137 MD Soares8 [facility] 2022-12-17 2022-12-17 Clinical Kenya Agarwal 1.2.840.1 [id number] Univers 08:00:00 10:48:06 Support Maria Luz Cochran 70488.1.1 ity of 3.412.2.7 [place] .3.586669 MD Soares8 [facility] 2022-12-17 2022-12-17 Clinical Kenya Carrion 1.2.840.1 [id number] Univers 08:00:00 10:48:06 Support Maria Luz Cochran 91210.1.1 ity of 3.412.2.7 [place] .3.488091 MD Soares8 [facility] 2022-12-17 2022-12-17 Outpatient EL TAO LUU MDA [id number] 08:37:01 10:43:17 WINTER olivier 2022-12-17 2022-12-17 Documentat Jus 1.2.840.1 [id number] [id number] Univers 00:00:00 00:00:00 ion Winter 92202.1.1 ity of Gini 3.412.2.7 [place] .3.486983 MD Blair [facility] 2022-12-17 2022-12-17 Documentat [place], 1.2.840.1 [id number] Univers 00:00:00 00:00:00 ion Winter 79016.1.1 ity of Gini 3.412.2.7 [place] .3.319671 MD Blair [facility] 2022-12-17 2022-12-17 Documentat [place], 1.2.840.1 [id number] Univers 00:00:00 00:00:00 ion Winter 89762.1.1 ity of Gini 3.412.2.7 [place] .3.042071 MD Blair [facility] 2022-12-17 2022-12-17 Anabell Hdez, 1.2.840.1 [id number] Univers 00:00:00 00:00:00 Only Lorena 09943.1.1 ity of Kayla 3.412.2.7 [place] .3.273045 MD Blair [facility] 2022-12-17 2022-12-17 Travel 1.2.840.1 1.2.266.611 1176 [id number] Univers 00:00:00 00:00:00 46177.1.1 350.1.13.41 ity of 3.412.2.7 2.2.7.3.698 [place] .3.023940 084.8 MD Blair [facility] 2022-12-17 2022-12-17 [facility], 1.2.840.1 [id number] Univers 00:00:00 00:00:00 Only Winter 41119.1.1 ity of Gini 3.412.2.7 [place] .3.139797 MD Blair [facility] 2022-12-17 [facility]22[facility]12-17 [facility] 1.2.840.1 [id number] Univers 00:00:00 00:00:00 ion Winter 22307.1.1 ity of Gini 3.412.2.7 [place] .3.801012 MD Blair [facility] 2022-12-17 2022-12-17 Documentat [place], 1.2.840.1 [id number] Univers 00:00:00 00:00:00 ion Winter 99621.1.1 ity of Gini 3.412.2.7 [place] .3.114140 MD Blair [facility] 2022-12-17 2022-12-17 Documentat [place], 1.2.840.1 [id number] 108 [id number] Univers 00:00:00 00:00:00 ion Winter 87839.1.1 ity of Gini 3.412.2.7 [place] .3.374875 MD Blair [facility] 2022-12-17 2022-12-17 Anabell [facility], 1.2.840.1 [id number] Univers 00:00:00 00:00:00 Only Lorena 14466.1.1 ity of Kayla 3.412.2.7 [place] .3.789932 MD Blair [facility] 2022-12-17 2022-12-17 Travel 1.2.840.1 1.2.654.166 2275 [id number] Univers 00:00:00 00:00:00 24520.1.1 350.1.13.41 ity of 3.412.2.7 2.2.7.3.698 [place] .3.877936 084.8 MD Blair [facility] 2022-12-17 2022-12-17 [facility], 1.2.840.1 [id number] Univers 00:00:00 00:00:00 Only Winter 78999.1.1 ity of Gini 3.412.2.7 [place] .3.748256 MD Blair [facility] 2022-12-16 2022-12-16 [facility], 1.2.840.1 [id number] Univers 00:00:00 00:00:00 Only Winter 60231.1.1 ity of Gini 3.412.2.7 [place] .3.987500 MD Soares8 [facility] 2022-12-16 2022-12-16 Telephone Jonathan, 1.2.840.1 [id number] 1102 [id number] Univers 00:00:00 00:00:00 Felisa M 21725.1.1 ity of 3.412.2.7 [place] .3.679637 MD Soares8 [facility] 2022-12-16 2022-12-16 Telephone Rosmery Dickinson 1.2.840.1 [id number] 1 [id number] Univers 00:00:00 00:00:00 M 15792.1.1 ity of 3.412.2.7 [place] .3.362473 MD Soares8 [facility] 2022-12-16 2022-12-16 [facility], 1.2.840.1 [id number] Univers 00:00:00 00:00:00 Only Winter 78053.1.1 ity of Gini 3.412.2.7 [place] .3.452700 MD Soares8 [facility] 2022-12-16 2022-12-16 Telephone Jonathan, 1.2.840.1 [id number] 1102 [id number] Univers 00:00:00 00:00:00 Felisa M 97282.1.1 ity of 3.412.2.7 [place] .3.843400 MD Soares8 [facility] 2022-12-16 2022-12-16 Telephone Dickinson, Rosmery 1.2.840.1 [id number] 1 [id number] Univers 00:00:00 00:00:00 M 10256.1.1 ity of 3.412.2.7 [place] .3.493020 MD Soares8 [facility] 2022-12-15 2022-12-15 [facility] Kenya Agarwal 1.2.840.1 [id number] 1 [id number] Univers 08:42:55 23:59:00 Encounter Y. 01150.1.1 it y of 3.412.2.7 [place] .3.213538 .8 [facility] 2022-12-15 2022-12-15 [facility] Kenya Carrion 1.2.840.1 [id number] 1 [id number] [facility] 08:42:55 23:59:00 Encounter Y. 87080.1.1 it y of 3.412.2.7 [place] .3.729372 .8 [facility] 2022-12-09 2022-12-15 [facility] Mer Milian 1.2.840.1 [id number] [facility] 21:01:00 19:30:00 Encounter Roberto Carlos Walsh 97275.1.1 ity of Abelino Rajput-Izzy [facility].412.2.7 [facility] .3.946776 Jaycee Muñoz .8 Travis Hebert, Derrick Cancer Ordaz, Cerena [facility] 2022-12-09 2022-12-15 [facility] Mer Milian 1.2.840.1 [id number] [facility] 21:01:00 19:30:00 Encounter Roberto Carlos Walsh 82474.1.1 ity of Abelino Rajput-Izzy 3.412.2.7 [facility] .3.962389 Jaycee Muñoz .8 Travis Hebert, Derrick Cancer Ordaz, Cerena [facility] 2022-12-15 2022-12-15 Outpatient KYLAH BAI MDA MDA [id number] 08:39:37 15:02:22 RON olivier 2022-12-15 2022-12-15 Inpatient KYLAH SUSANTAO MDA [id number] MD 09:34:01 10:58:12 FAREED olivier 2022-12-15 2022-12-15 Rohith Montenegro 1.2.840.1 [id number] [facility] 00:00:00 00:00:00 Lindy 80071.1.1 ity of Ashleigh 3.412.2.7 [place] .3.982710 MD Soares8 [facility] 2022-12-15 2022-12-15 Orders Koyyalagunt 1.2.840.1 [id number] 11 [id number] Univers 00:00:00 00:00:00 Only a, 12332.1.1 ity of [place]han[place].412.2.7 [place] .3.636692 MD Soares8 [facility] 2022-12-15 2022-12-15 Orders Koyyalagunt 1.2.840.1 [id number] 11 [id number] Univers 00:00:00 00:00:00 Only a, 96259.1.1 ity of [place]han[place].412.2.7 [place] .3.874594 MD Soares8 [facility] 2022-12-15 2022-12-15 Orders Razmandi, 1.2.840.1 [id number] 1102 [id number] Univers 00:00:00 00:00:00 Only Maya 77830.1.1 ity of 3.412.2.7 [place] .3.584447 MD Soares8 [facility] 2022-12-15 2022-12-15 Ophth Exam Reggiemandi, 1.2.840.1 [id number] 1 [id number] Univers 00:00:00 00:00:00 Maya 03969.1.1 ity of 3.412.2.7 [place] .3.435613 MD Soares8 [facility] 2022-12-15 2022-12-15 Refill Lan, 1.2.840.1 [id number] Univers 00:00:00 00:00:00 Lindy 95819.1.1 ity of Ashleigh 3.412.2.7 [place] .3.130582 MD Soares8 [facility] 2022-12-15 2022-12-15 Orders Koyyalagunt 1.2.840.1 [id number] 11 [id number] Univers 00:00:00 00:00:00 Only a, 35785.1.1 ity of [place]han[place].412.2.7 [place] .3.727130 MD Soares8 [facility] 2022-12-15 2022-12-15 Orders Kohenriyalagunt 1.2.840.1 [id number] 11 [id number] Univers 00:00:00 00:00:00 Only a, 85917.1.1 ity of [place]han[place]sh[place] 3.412.2.7 [place] .3.358545 MD Soares8 [facility] 2022-12-15 2022-12-15 Orders Razmandi, 1.2.840.1 [id number] 1102 [id number] Univers 00:00:00 00:00:00 Only Maya 73573.1.1 ity of 3.412.2.7 [place] .3.994528 MD Blair [facility] 2022-12-15 2022-12-15 Oph Exam Dawson, 1.2.840.1 [id number] 1 [id number] Univers 00:00:00 00:00:00 Maya 64901.1.1 ity of 3.412.2.7 [place] .3.757915 MD Soares8 [facility] 2022-12-14 2022-12-14 Inpatient KENYA AGARWAL [facility] [id number] 17:21:25 17:21:31 [facility] 2022-12-14 2022-12-14 Orders Martínez, 1.2.840.1 [id number] Univers 00:00:00 00:00:00 Only Wilder 35179.1.1 ity of 3.412.2.7 [place] .3.142902 MD Soares8 [facility] 2022-12-14 2022-12-14 Orders Martínez, 1.2.840.1 [id number] Univers 00:00:00 00:00:00 Only Wilder 97483.1.1 ity of 3.412.2.7 [place] .3.139051 MD Soares8 [facility] 2022-12-11 2022-12-11 Inpatient KENYA AGARWAL [facility] [id number] 11:49:45 11:49:48 [facility] 2022-12-11 2022-12-11 Telephone Jason, 1.2.840.1 [id number] [id number] Univers 00:00:00 00:00:00 Maridel P 04287.1.1 it y of 3.412.2.7 [place] .3.883915 MD Blair [facility] 2022-12-11 2022-12-11 Telephone Jason, 1.2.840.1 [id number] [id number] Univers 00:00:00 00:00:00 Maridel P 13398.1.1 it y of 3.412.2.7 [place] .3.158051 MD Blair [facility] 2022-12-10 2022-12-10 Travel 1.2.840.1 1.2.006.345 [id number] Univers 00:00:00 00:00:00 65567.1.1 350.1.13.41 ity of 3.412.2.7 [place].3.698 [place] .3.651171 084.8 MD Blair [facility] 2022-12-10 2022-12-10 Anabell Soliz, 1.2.840.1 [id number] Univers 00:00:00 00:00:00 Only Wilder 65601.1.1 ity of 3.412.2.7 [place] .3.764879 MD Blair [facility] 2022-12-10 2022-12-10 Travel 1.2.840.1 1.2.576.086 [id number] Univers 00:00:00 00:00:00 34947.1.1 350.1.13.41 ity of 3.412.2.7 [place].3.698 [place] .3.397874 084.8 MD Blair [facility] 2022-12-10 2022-12-10 Anabell Soliz, 1.2.840.1 [id number] Univers 00:00:00 00:00:00 Only Wilder 30868.1.1 ity of 3.412.2.7 [place] .3.089287 MD Soares8 [facility] 2022-12-08 2022-12-08 Telephone [employer], 1.2.840.1 [id number] Univers 00:00:00 00:00:00 Lindy 08059.1.1 ity of [place] 3.412.2.7 [place] .3.092033 MD Soares8 [facility] 2022-12-08 2022-12-08 [facility], 1.2.840.1 [id number] Univers 00:00:00 00:00:00 Only Lorena 72440.1.1 ity of Kayla 3.412.2.7 [place] .3.277200 MD Soares8 [facility] 2022-12-08 2022-12-08 Telephone [employer], 1.2.840.1 [id number] Univers 00:00:00 00:00:00 Lindy 89491.1.1 ity of Ashleigh 3.412.2.7 [place] .3.383115 MD Soares8 [facility] 2022-12-08 2022-12-08 [facility], 1.2.840.1 [id number] Univers 00:00:00 00:00:00 Only Lorena 68230.1.1 ity of Kayla 3.412.2.7 [place] .3.600923 MD Soares8 [facility] [address] 2022-12-05 2022-12-05 [facility], 1.2.840.1 [id number] Univers 00:00:00 00:00:00 Winter 87899.1.1 ity of Gini 3.412.2.7 [place] .3.331276 MD Soares8 [facility] [address] 2022-12-05 2022-12-05 [facility], 1.2.840.1 [id number] Univers 00:00:00 00:00:00 Only Winter 34646.1.1 ity of Gini 3.412.2.7 [place] .3.790958 MD Soares8 [facility] 2022-12-05 2022-12-05 Telephone [place], 1.2.840.1 [id number] Univers 00:00:00 00:00:00 Winter 82914.1.1 ity of Gini 3.412.2.7 [place] .3.664212 MD Soares8 [facility] 2022-12-05 2022-12-05 Orders [place], 1.2.840.1 [id number] Univers 00:00:00 00:00:00 Only Winter 39326.1.1 ity of [place] 3.412.2.7 [place] .3.786013 MD Soares8 [facility] 2022-12-04 2022-12-04 [facility] [place] 1.2.840 .1 [id number] Univers 10:55:00 23:59:00 Encounter Lorena Hdez 36164.1.1 ity of 3.412.2.7 [place] .3.406259 MD Soares8 [facility] 2022-12-04 2022-12-04 [facility] 1.2.840 .1 [id number] Univers 10:55:00 23:59:00 Encounter Lorena Hdez 85812.1.1 ity of 3.412.2.7 [place] .3.168837 MD Soares8 [facility] 2022-12-04 2022-12-04 Telephone Antonella, 1.2.840.1 [id number] Univers 00:00:00 00:00:00 [place] 72602.1.1 it y of 3.412.2.7 [place] .3.096847 MD Blair [facility] 2022-12-04 2022-12-04 [facility], 1.2.840.1 [id number] Univers 00:00:00 00:00:00 plinary [place] 73232.1.1 it y of Visit 3.412.2.7 [place] .3.779352 MD Soares8 [facility] 2022-12-04 2022-12-04 Telephone Dimas, 1.2.840.1 [id number] 11 [id number] Univers 00:00:00 00:00:00 Maria Luz Lund 25246.1.1 ity of 3.412.2.7 [place] .3.037793 MD Soares8 [facility] 2022-12-04 2022-12-04 Telephone Antonella, 1.2.840.1 [id number] 11 [id number] Univers 00:00:00 00:00:00 Red Costa 01077.1.1 it y of 3.412.2.7 [place] .3.162037 MD Soares8 [facility] 2022-12-04 2022-12-04 [facility] Antonella, 1.2.840.1 [id number] 1 [id number] Univers 00:00:00 00:00:00 dali Costa 83062.1.1 it y of Visit 3.412.2.7 [place] .3.161068 MD Soares8 [facility] 2022-12-04 2022-12-04 Telephone Dimas, 1.2.840.1 [id number] 11 [id number] Univers 00:00:00 00:00:00 Maria Luz Lund 86325.1.1 ity of 3.412.2.7 [place] .3Rodger432315 MD Blair [facility] 2022-12-02 2022-12-02 Anabell Montenegro 1.2.840.1 [id number] Univers 00:00:00 00:00:00 Only Lindy 01158.1.1 ity of Ashleigh 3.412.2.7 [place] .3Rodger721288 MD Soares8 [facility] 2022-12-02 2022-12-02 Anabell Luu 1.2.840.1 [id number] Univers 00:00:00 00:00:00 Only Winter 68592.1.1 ity of Gini 3.412.2.7 [place] .3Rodger660208 MD Blair [facility] 2022-12-02 2022-12-02 Orders Lan, 1.2.840.1 [id number] [id number] Univers 00:00:00 00:00:00 Only Lindy 05078.1.1 ity of [place] 3.412.2.7 [place] .3.682865 MD Soares8 [facility] 2022-12-02 2022-12-02 Orders Luu, 1.2.840.1 [id number] Univers 00:00:00 00:00:00 Only Winter 57517.1.1 ity of Gini 3.412.2.7 [place] .3.491694 MD Blair [facility] 2022-11-30 2022-11-30 Ancillary Hdez, 1.2.840.1 [id number] 1102 [id number] Univers 08:15:00 10:00:00 Procedure Lorena 53881.1.1 i ty of Kayla 3.412.2.7 [place] .3.576780 MD Blair [facility] 2022-11-30 2022-11-30 Ancillary KYLAH Hdez, 1.2.840.1 [id number] 1102 [id number] Univers 08:15:00 10:00:00 Procedure Lorena 10419.1.1 i ty of Kayla 3.412.2.7 [place] .3.256393 MD Blair [facility] 2022-11-30 2022-11-30 Travel 1.2.840.1 1.2.892.962 6855 [id number] Univers 00:00:00 00:00:00 25697.1.1 350.1.13.41 ity of 3.412.2.7 2.2.7.3.698 [place] .3.303742 084.8 MD Blair [facility] 2022-11-30 2022-11-30 Travel 1.2.840.1 1.2.801.741 9779 [id number] Univers 00:00:00 00:00:00 13655.1.1 350.1.13.41 ity of 3.412.2.7 2.2.7.3.698 [place] .3.960130 084.8 .[address] [facility] 2022-11-27 2022-11-27 Ancillary [employer], 1.2.840.1 [id number] [facility] 12:00:00 14:30:00 Procedure Lindy 16623.1.1 it y of [place] 3.412.2.7 [place] .3.057334 MD Soares8 [facility] 2022-11-27 2022-11-27 Ancillary KYLAH Lan, 1.2.840.1 [id number] 714 [id number] Univers 12:00:00 14:30:00 Procedure Lindy 64854.1.1 it y of [place] 3.412.2.7 [place] .3.761294 MD Blair [facility] 2022-11-27 2022-11-27 Travel 1.2.840.1 1.2.708.270 7358 [id number] Univers 00:00:00 00:00:00 96960.1.1 350.1.13.41 ity of 3.412.2.7 2.2.7.3.698 [place] .3.231607 084.8 MD Soares8 [facility] 2022-11-27 2022-11-27 Travel 1.2.840.1 1.2.232.561 2958 [id number] Univers 00:00:00 00:00:00 40296.1.1 350.1.13.41 ity of 3.412.2.7 2.2.7.3.698 [place] .3.049524 084.8 MD Soares8 [facility] 2022-11-26 2022-11-26 Outpatient KYLAH HDEZ MDA MDA [id number] 13:07:20 13:20:48 LORENA suarez 2022-11-26 2022-11-26 Consult Dee Power, 1.2.840.1 [id number] 11 [id number] Univers 11:00:00 13:02:56 Celyne 66145.1.1 ity of 3.412.2.7 [place] .3.635128 MD Soares8 [facility] 2022-11-26 2022-11-26 Consult KYLAH Power, 1.2.840.1 [id number] 11 [id number] Univers 11:00:00 13:02:56 Celyne 24302.1.1 ity of 3.412.2.7 [place] .3.155373 MD Soares8 [facility] 2022-11-26 2022-11-26 Consult Luu, 1.2.840.1 [id number] 4569 Univers 10:00:00 11:43:01 Winter 52760.1.1 ity of Gini 3.412.2.7 [place] .3.958790 .[address] [facility] 2022-11-26 2022-11-26 Consult KYLAH Luu, 1.2.840.1 [id number] Univers 10:00:00 11:43:01 Winter 70825.1.1 ity of Gini 3.412.2.7 [place] .3.971434 MD Soares8 [facility] 2022-11-26 2022-11-26 Travel 1.2.840.1 1.2.789.327 8902 [id number] Univers 00:00:00 00:00:00 95469.1.1 350.1.13.41 ity of 3.412.2.7 2.2.7.3.698 [place] .3.795569 084.8 MD Blair [facility] 2022-11-26 2022-11-26 Travel 1.2.840.1 1.2.078.826 9247 [id number] Univers 00:00:00 00:00:00 02180.1.1 350.1.13.41 ity of 3.412.2.7 2.2.7.3.698 [place] .3.307567 084.8 MD Blair [facility] 2022-11-24 2022-11-24 Lab David Nunez 1.2.840.1 [id number] Univers 00:00:00 00:00:00 [place] [address].1.1 i ty of n 3.412.2.7 [place] .3.441627 MD Soares8 [facility] 2022-11-24 2022-11-24 Lab David Nunez 1.2.840.1 [id number] 52 [id number] Univers 00:00:00 00:00:00 Alexa Cantrell 53048.1.1 i ty of n 3.412.2.7 [place] .3.866050 MD Soares8 [facility] 2022-11-23 2022-11-23 Telephone Jeffy, 1.2.840.1 [id number] 1101 [id number] Univers 00:00:00 00:00:00 Macareal T 88594.1.1 it y of 3.412.2.7 [place] .3.890710 MD Soares8 [facility] 2022-11-23 2022-11-23 Telephone Jeffy, 1.2.840.1 [id number] 1101 [id number] Univers 00:00:00 00:00:00 Macaela T 04771.1.1 it y of 3.412.2.7 [place] .3.921875 MD Soares8 [facility] 2022-11-22 2022-11-22 Orders Olivier, 1.2.840.1 [id number] 0014 Univers 00:00:00 00:00:00 Only Berkley 44630.1.1 ity of 3.412.2.7 [place] .3.623688 MD Blair [facility] 2022-11-22 2022-11-22 Orders Olivier, 1.2.840.1 [id number] Univers 00:00:00 00:00:00 Only Berkley 13412.1.1 ity of 3.412.2.7 [place] .3.659292 MD Blair [facility] 2022-11-20 2022-11-20 Telephone Mateusz, 1.2.840.1 [id number] 1101 [id number] Univers 00:00:00 00:00:00 Elana 78573.1.1 ity of 3.412.2.7 [place] .3.141392 .[address] [facility] 2022-11-20 2022-11-20 Telephone Mateusz 1.2.840.1 [id number] 1101 [id number] Univers 00:00:00 00:00:00 Elana 97677.1.1 ity of 3.412.2.7 [place] .3.995107 .[address] [facility] 2022-11-18 2022-11-18 Refill Doctor [facility] 1.2.840.114 [id number] Univers 00:00:00 00:00:00 Unassigned, HEALTH 350.1.13.10 ity of Declo [place] 4.2.7.2.686 Frankie as JAVIER?BLEA [id number] [address] OFFICE [facility] 2022-11-18 2022-11-18 Telephone Jaziel [facility] 1.2.671.322 4308 2755 Univers 00:00:00 00:00:00 Nereida Cloudscaling 350.1.13.10 it y of [place] 4.2.7.2.686 Frankie as JAVIER?BLEA [id number] [address] OFFICE [facility] 2022-11-17 2022-11-17 Outpatient KYLAH POSADA MDA [facility] [id number] 11:49:34 15:08:37 RED olivier 2022-11-17 2022-11-17 Office Kenya Agarwal 1.2.840.1 [id number] 11 [id number] Univers 09:15:00 11:44:36 Visit Y. 15304.1.1 ity of 3.412.2.7 [place] .3.869462 MD [facility]8 [facility]22-11-17 2022-11-17 Office EL Kenya Agarwal 1.2.840.1 [id number] 11 [id number] Univers 09:15:00 11:44:36 Visit Y. 11548.1.1 ity of 3.412.2.7 [place] .3Rodger590642 MD [facility] 2022-11-17 2022-11-17 NPR Kenya Agarwal 1.2.840.1 [id number] 11 [id number] Univers 08:45:00 09:16:44 Y. 22946.1.1 ity of 3.412.2.7 [place] .3.638391 MD Blair [facility] 2022-11-17 2022-11-17 NPR KYLAH Kenya Agarwal 1.2.840.1 [id number] 11 [id number] Univers 08:45:00 09:16:44 Y. 47765.1.1 ity of 3.412.2.7 [place] .3.172246 MD Blair [facility] 2022-11-17 2022-11-17 Travel 1.2.840.1 1.2.408.468 2146 [id number] Univers 00:00:00 00:00:00 85025.1.1 350.1.13.41 ity of 3.412.2.7 2.2.7.3.698 [place] .3.270437 084.Lilly Blair [facility] 2022-11-17 2022-11-17 Telephone Jaziel MIDERREK 1.2.764.847 5694 6046 Univers 00:00:00 00:00:00 Palmer Hargreaves 350.1.13.10 [facility] 4.2.7.2.686 Frankie as JAVIER?BLEA [id number] [address] MEDICAL OFFICE BUILDING 2022-11-17 2022-11-17 Travel 1.2.840.1 1.2.225.775 2779 [id number] Univers 00:00:00 00:00:00 17479.1.1 350.1.13.41 ity of 3.412.2.7 2.2.7.3.698 [place] .3.443269 084.8 MD Blair [facility] 2022-11-16 2022-11-16 Orders Antonella 1.2.840.1 [id number] 1101 [id number] Univers 00:00:00 00:00:00 Only Red [place] 55452.1.1 it y of 3.412.2.7 [place] .3.423326 MD Blair [facility] 2022-11-16 2022-11-16 Orders Antonella, 1.2.840.1 [id number] 1101 [id number] Univers 00:00:00 00:00:00 Only Red [place] 05856.1.1 it y of 3.412.2.7 [place] .3.784369 MD Soares8 [facility] 2022-11-13 2022-11-13 [place] Jaziel [facility] 1.2.426.490 1516 7693 Univers 00:00:00 00:00:00 Palmer Hargreaves 350.1.13.10 it y of [place] 4.2.7.2.686 Frankie as JAVIER?BLEA [id number] [address] MEDICAL OFFICE BUILDING 2022-11-12 2022-11-12 Anabell Honeycutt 1.2.840.1 [id number] 1101 [id number] Univers 00:00:00 00:00:00 Only Chloe Alejandre 81219.1.1 it y of 3.412.2.7 [place] .3.048085 MD Soares8 [facility] 2022-11-12 2022-11-12 Orders Antonella 1.2.840.1 [id number] 1101 [id number] Univers 00:00:00 00:00:00 Only Red [place] 86697.1.1 it y of 3.412.2.7 [place] .3Rodger558087 MD Soares8 [facility] 2022-11-12 2022-11-12 Anabell Honeycutt 1.2.840.1 [id number] 1101 [id number] Univers 00:00:00 00:00:00 Only Chloe Alejandre 12219.1.1 it y of 3.412.2.7 [place] .3.238745 MD Soares8 [facility] 2022-11-12 2022-11-12 Orders Antonella 1.2.840.1 [id number] 1101 [id number] Univers 00:00:00 00:00:00 Only Red [place] 24630.1.1 it y of 3.412.2.7 [place] .3Rodger695623 MD Soares8 [facility] 2022-11-07 2022-11-07 [facility] 1.2.840.114 [id number] Univers 00:00:00 00:00:00 [facility] 350.1.13.10 it y of [place] 4.2.7.2.686 Frankie as JAVIER?BLEA [id number] [address] MEDICAL OFFICE [facility] 2022-11-03 2022-11-03 [facility] 1.2.840.114 [id number] Univers 00:00:00 00:00:00 [facility] 350.1.13.10 it y of [place] 4.2.7.2.686 Frankie as JAVIER?BLEA [id number] [address] OFFICE [facility] 2022-11-03 2022-11-03 [facility] 1.2.840.114 [id number] Univers 00:00:00 00:00:00 [facility] 350.1.13.10 it y of Edward [place] 4.2.7.2.686 Frankie as JAVIER?BLEA [id number] [address] OFFICE [facility] 2022-10-21 2022-10-21 Office [facility] 1.2.840.114 [id number] Univers 09:30:00 09:45:00 Visit [facility] 350.1.13.10 it y of [place] 4.2.7.2.686 Frankie as JAVIER?BLEA [id number] [address] MEDICAL OFFICE [facility] 2022-10-21 2022-10-21 Outpatient Marsha SHERIFF [facility] [id number] Univers 09:30:00 09:24:24 NEREIDA pierre [facility] 2022-10-01 2022-10-01 [facility]ie [facility] 1.2.840.114 [id number] Univers 00:00:00 00:00:00 [facility] 350.1.13.10 it y of [place] 4.2.7.2.686 Frankie as JAVIER?BLEA [id number] [address] MEDICAL OFFICE [facility] 2022-09-21 2022-09-21 Outpatient R [facility] [id number] Univers 10:00:00 10:00:00 NEREIDA pierre [facility] 2022-09-21 2022-09-21 Reeling 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 Operator Lab, Ang - Db [facility] 1.2.840.1 14 [id number] Univers 10:00:00 10:00:00 Visit Nereida Sheriff [facility] 350.1.13.10 ity of [place] 4.2.7.2.686 Frankie as JAVIER?BLEA [id number] [facility] OFFICE [facility] 2022-09-21 2022-09-21 Office [facility] 1.2.840.114 [id number] Univers 09:45:00 10:00:00 Visit [facility] 350.1.13.10 it y of [place] 4.2.7.2.686 Frnakie as JAVIER?BLEA [id number] [address] OFFICE [facility] 2022-09-18 2022-09-18 [facility]addie [facility] 1.2.840.114 [id number] Univers 00:00:00 00:00:00 [facility] 350.1.13.10 it y of [place] 4.2.7.2.686 Frankie as JAVIER?BLEA [id number] [address] OFFICE [facility] 2022-09-17 2022-09-17 [facility]ie [facility] 1.2.840.114 [id number] Univers 00:00:00 00:00:00 [facility] 350.1.13.10 it y of [place] 4.2.7.2.686 Frankie as JAVIER?BLEA [id number] [address] OFFICE [facility] 2022-09-07 2022-09-07 [facility]ie [facility] 1.2.840.114 [id number] Univers 00:00:00 00:00:00 [facility] 350.1.13.10 it y of [place] 4.2.7.2.686 Frankie as JAVIER?BLEA [id number] [address] OFFICE [facility] 2022-09-03 2022-09-03 [facility]ie [facility] 1.2.840.114 [id number] Univers 00:00:00 00:00:00 Nereida HEALTH 350.1.13.10 it y of [place] 4.2.7.2.686 Frankie as JAVIER?BLEA [id number] La dical KNEY [address] [place] MEDICAL OFFICE BUILDING 2022-09-03 2022-09-03 [facility]ie [facility] 1.2.840.114 [id number] Univers 00:00:00 00:00:00 Nereida HEALTH 350.1.13.10 it y of [place] 4.2.7.2.686 Frankie as JAVIER?BLEA [phone] La dical KNEY [address] [place] MEDICAL OFFICE [facility] 2022-08-28 2022-08-28 Outpatient R JO [facility] [id number] Univers 08:05:50 23:59:00 BLANCHE pierre [facility] 2022-08-28 2022-08-28 [facility] 1.2.840.114 [id number] Univers 08:05:50 23:59:00 Encounter Blanchemesfin LEE 350.1.13.10 ity [facility] 4.2.7.2.686 [place] [id number] [address] 2022-08-28 2022-08-28 Reeling 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 Operator Jenniffer Paige Lab Main [facility] 1.2.8 40.114 [id number] Univers 08:15:00 08:30:00 Visit Blanche Osorio 350.1.13.10 ity of [place] 4.2.7.2.686 [place] [facility] [id number] [facility] 2022-08-28 2022-08-28 Telephone [facility] 1.2.156.231 [id number] Univers 00:00:00 00:00:00 Blanche HEALTH 350.1.13.10 it y of [place] 4.2.7.2.686 Frankie as JAVIER?BLEA [id number] La dical KNEY [address] [place] MEDICAL OFFICE [facility] 2022-08-26 2022-08-26 Outpatient R JO [facility] [id number] Univers 00:00:00 00:00:00 BLANCHE pierre [facility] 2022-08-25 2022-08-25 Outpatient R JO [facility] [id number] Univers 10:00:00 11:23:37 BLANCHE pierre of [facility] 2022-08-25 2022-08-25 Office Jo [facility] 1.2.840.114 [id number] Univers 10:00:00 11:23:37 Visit [facility] 350.1.13.10 it y of [place] 4.2.7.2.686 Frankie as JAVIER?BLEA [id number] [address] MEDICAL OFFICE [facility] 2022-08-24 2022-08-24 Telephone Jo [facility] 1.2.535.981 [id number] Univers 00:00:00 00:00:00 Blanche HEALTH 350.1.13.10 it y of [place] 4.2.7.2.686 Frankie as JAVIER?BLEA [id number] [address] OFFICE [facility] 2022-08-21 2022-08-21 [facility]addie [facility] 1.2.840.114 [id number] Univers 00:00:00 00:00:00 Nereida HEALTH 350.1.13.10 it y of [place] 4.2.7.2.686 Frankie as JAVIER?BLEA [id number] [address] MEDICAL OFFICE [facility] 2022-08-18 2022-08-18 Refmdadie [facility] 1.2.840.114 [id number] Univers 00:00:00 00:00:00 Nereida HEALTH 350.1.13.10 it y of [place] 4.2.7.2.686 Frankie as JAVIER?BLEA [id number] [address] MEDICAL OFFICE [facility] 2022-08-06 2022-08-06 [facility] 1.2.840.114 [id number] Univers 00:00:00 00:00:00 Nereida HEALTH 350.1.13.10 it y of [place] 4.2.7.2.686 Frankie as JAVIER?BLEA [id number] [address] MEDICAL OFFICE [facility] 2022-08-05 2022-08-05 [facility]addie [facility] 1.2.840.114 [id number] Univers 00:00:00 00:00:00 Nereida HEALTH 350.1.13.10 it y of [place] 4.2.7.2.686 Frankie as JAVIER?BLEA [id number] [address] OFFICE [facility] 2022-07-30 2022-07-30 [facility] 1.2.840.114 [id number] Univers 00:00:00 00:00:00 Nereida HEALTH 350.1.13.10 it y of [place] 4.2.7.2.686 Frankie as JAVIER?BLEA [id number] [address] OFFICE [facility] 2022-07-28 2022-07-28 [facility] [id number] [facility] [address] 11:11:47 23:59:00 Encounter [facility] 2022-07-28 2022-07-28 Outpatient ELLE AnnetteRodger [facility] [id number] [facility] 11:11:47 23:59:00 2022-07-28 2022-07-28 [facility] [id number] 11:11:47 23:59:00 Encounter [facility] 2022-07-26 2022-07-26 [facility] 1.2.840.114 [id number] Univers 00:00:00 00:00:00 Nereida HEALTH 350.1.13.10 it y of [place] 4.2.7.2.686 Frankie as JAVIER?BLEA [id number] [address] OFFICE [facility] 2022-07-21 2022-07-21 [facility] 1.2.840.114 [id number] Univers 00:00:00 00:00:00 Nereida HEALTH 350.1.13.10 it y of [place] 4.2.7.2.686 Frankie as JAVIER?BLEA [id number] [address] OFFICE [facility] 2022-07-19 2022-07-19 [facility]addie [facility] 1.2.840.114 [id number] Univers 00:00:00 00:00:00 Nereida HEALTH 350.1.13.10 it y of [place] 4.2.7.2.686 Frankie as JAVIER?BLEA [id number] [address] MEDICAL OFFICE [facility] 2022-07-09 2022-07-09 [facility] 1.2.840.114 [id number] Univers 00:00:00 00:00:00 Nereida HEALTH 350.1.13.10 it y of [place] 4.2.7.2.686 Frankie as JAVIER?BLEA [id number] [address] OFFICE [facility] 2022-07-08 2022-07-08 Outside [place] [facility] [id number] 00:00:00 00:00:00 Orders [facility] 2022-07-08 2022-07-08 Outside [facility] [id number] 00:00:00 00:00:00 Orders [facility] 2022-07-04 2022-07-04 [facility] 1.2.840.114 [id number] Univers 00:00:00 00:00:00 [facility] 350.1.13.10 it y of [place] 4.2.7.2.686 Frankie as JAVIER?BLEA [id number] [address] OFFICE [facility] 2022-06-30 2022-06-30 [facility] 1.2.840.114 [id number] Univers 00:00:00 00:00:00 [facility] 350.1.13.10 it y of [place] 4.2.7.2.686 Frankie as JAVIER?BLEA [id number] [address] OFFICE [facility] 2022-06-23 2022-06-23 [facility] Marsha CALERO [facility] [id number] Univers 09:00:00 09:00:00 GERMAIN pierre [facility] 2022-06-21 2022-06-21 [facility] 1.2.840.114 [id number] Univers 00:00:00 00:00:00 Nereida HEALTH 350.1.13.10 it y of [place] 4.2.7.2.686 Frankie as JAVIER?BLEA [id number] [address] OFFICE [facility] 2022-06-17 2022-06-17 Outpatient R JAZIEL [facility] [id number] Univers 10:00:00 10:00:00 NEREIDA ity [facility] 2022-06-08 2022-06-08 [facility] 1.2.840.114 [id number] Univers 00:00:00 00:00:00 Nereida HEALTH 350.1.13.10 it y of [place] 4.2.7.2.686 Frankie as JAVIER?BLEA [id number] [address] 2022-06-08 2022-06-08 [facility] 1.2.840.114 [id number] Univers 00:00:00 00:00:00 [facility] 350.1.13.10 it y of [place] 4.2.7.2.686 Frankie as JAVIER?BLEA [id number] [address] 2022-06-03 2022-06-03 [facility] 1.2.840.114 [id number] Univers 00:00:00 00:00:00 [facility] 350.1.13.10 it y of [place] 4.2.7.2.686 Frankie as JAVIER?BLEA [id number] [address] 2022-06-03 2022-06-03 [facility] 1.2.840.114 [id number] Univers 00:00:00 00:00:00 [facility] 350.1.13.10 it y of [place] 4.2.7.2.686 Frankie as JAVIER?BLEA [id number] [address] 2022-05-17 2022-05-17 [facility] 1.2.840.114 [id number] Univers 00:00:00 00:00:00 [facility] 350.1.13.10 it y of [place] 4.2.7.2.686 Frankie as JAVIER?BLEA [id number] [address] OFFICE [facility] 2022-05-11 2022-05-11 [facility]addie [facility] 1.2.840.114 [id number] Univers 00:00:00 00:00:00 [facility] 350.1.13.10 it y of [place] 4.2.7.2.686 Frankie as JAVIER?BLEA [id number] [address] OFFICE [facility] 2022-04-08 2022-04-08 Outpatient Aguilar_M VFP VFP [id number] [facility] 00:00:00 00:00:00 [id number] Family Practic e 2022-04-08 2022-04-08 [facility] 1.2.840.114 [id number] Univers 00:00:00 00:00:00 [place] [id number] it y of [place] 4.2.7.2.686 Frankie as JAVIER?BLEA [id number] [address] OFFICE [facility] 2022-03-31 2022-03-31 [facility] 1.2.840.114 [id number] Univers 00:00:00 00:00:00 [facility] 350.1.13.10 it y of [place] 4.2.7.2.686 Frankie as JAVIER?BLEA [id number] [address] OFFICE [facility] 2022-03-18 2022-03-18 Outpatient Masrha [facility]IFF [facility] [id number] Univers 09:30:00 09:45:06 NEREIDA ity [facility] 2022-03-18 2022-03-18 [facility] 1.2.840.114 [id number] Univers 09:30:00 09:45:00 Visit [place] [id number] it y of [place] 4.2.7.2.686 Frankie as JAVIER?BLEA [id number] [address] OFFICE [facility] 2022-03-18 2022-03-18 Outpatient R [facility] [id number] Univers 09:30:00 09:30:00 NEREIDA pierre [facility] 2022 2022 [facility]ie [facility] 1.2.840.114 [id number] Univers 00:00:00 00:00:00 [facility] 350.1.13.10 it y of [place] 4.2.7.2.686 Frankie as JAVIER?BLEA [id number] [address] OFFICE [facility] 2022-03-13 2022-03-13 [facility] 1.2.840.114 [id number] Univers 00:00:00 00:00:00 [facility] 350.1.13.10 it y of [place] 4.2.7.2.686 Frankie as JAVIER?BLEA [id number] [address] 2022-03-11 2022-03-11 [facility] 1.2.840.114 [id number] Univers 00:00:00 00:00:00 [facility] 350.1.13.10 it y of [place] 4.2.7.2.686 Frankie as JAVIER?BLEA [id number] [address] 2022-03-09 2022-03-09 [facility] 1.2.840.114 [id number] Univers 00:00:00 00:00:00 [facility] 350.1.13.10 it y of [place] 4.2.7.2.686 Frankie as JAVIER?BLEA [id number] [address] OFFICE [facility] 2022-03-05 2022-03-05 [facility] 1.2.840.114 [id number] Univers 00:00:00 00:00:00 [facility] 350.1.13.10 it y of [place] 4.2.7.2.686 Frankie as JAVIER?BLEA [id number] [address] 2022-03-02 2022-03-02 [facility] 1.2.840.114 [id number] Univers 00:00:00 00:00:00 [facility] 350.1.13.10 it y of [place] 4.2.7.2.686 Frankie as JAVIER?BLEA [id number] La mary GOEL [address] [place] [address] 2022-03-02 2022-03-02 [facility] 1.2.840.114 [id number] 70 Univers 00:00:00 00:00:00 Nereida HEALTH 350.1.13.10 it y of [place] 4.2.7.2.686 Frankie as JAVIER?BLEA [id number] La mary [address] 2022-02-05 2022-02-05 [facility] 1.2.099.219 [id number] Univers 00:00:00 00:00:00 [facility] 350.1.13.10 [facility] 4.2.7.2.686 Frankie as JAVIER?BLEA [phone] La mary [address] 2022-01-30 2022-01-30 [facility] 1.2.840.114 [id number] Univers 00:00:00 00:00:00 Yantis [facility] 350.1.13.10 it y of [place] 4.2.7.2.686 Frankie as PROFESSIO [phone] [address] ONE 2022-01-25 2022-01-25 Emergency X [facility] ERT [id number] Univers 12:57:00 16:23:00 JACQUELIN pierre [facility] 2022-01-25 2022-01-25 Emergency [facility] 1.2.707.911 [id number] Univers 12:57:00 16:23:00 [facility] 350.1.13.10 ity of [place] 4.2.7.2.686 [place] [phone] [address] 2022-01-22 2022-01-22 Outpatient Aguilar_M VFP VFP [id number] [facility] 08:43:00 08:43:00 [id number] Family Practic e 2022-01-14 2022-01-14 Refill Jaziel [facility] 1.2.840.114 [id number] Univers 00:00:00 00:00:00 Nereida [facility] 350.1.13.10 it y of [place] 4.2.7.2.686 Frankie as SEAN [phone] La dical NAL [address] OFFICE [facility] ONE 2022-01-09 2022-01-09 [facility] [id number] 07:39:00 14:08:[address] [facility] 2022-01-09 2022-01-09 Outpatient [facility] Surgery [id number] SLE 07:39:00 14:08:00 DEWAYNE 2022-01-09 2022-01-[address] [facility] [id number] 11:08:00 12:56:00 Event India [facility] 2022-01-09 2022-01-09 Surgery [facility] [id number] 11:30:00 12:50:00 [facility] 2022-01-09 2022-01-09 Travel [facility] [id number] [facility] 00:[facility]00 00:00:00 [facility] 2022-01-08 2022-01-08 Outpatient [facility] SLE [id number] SLE 12:18:15 23:59:00 2022-01-08 2022-01-08 [facility] [id number] 11:55:00 23:59:00 Encounter [facility] 2022-01-08 2022-01-08 Travel [facility] [id number] [facility] 00:00:00 00:00:00 [facility] 2021-12-18 2021-12-18 Office Galilea [facility] 1.2.840.114 [id number] Univers 15:45:00 16:15:00 Visit Germain [facility] 350.1.13.10 it y of [place] 4.2.7.2.686 Frankie as JAVIER?BLEA [phone] Me dical JAMILAEY [address] MEDICAL OFFICE BUILDING 2021-12-18 2021-12-18 Outpatient Marsha GALILEA [facility] [id number] Univers 15:45:00 15:45:00 [facility] 2021-12-18 2021-12-18 Outpatient [facility] [id number] Univers 15:45:00 15:45:00 [facility] 2021-12-16 2021-12-16 Outpatient Marsha [facility] [id number] Univers 16:00:00 16:00:00 [facility] 2021-12-16 2021-12-16 Orders Doctor OLGA 1.2.840.114 [id number] Univers 00:00:00 00:00:00 Only Unassigned, STEVE 350.1.13.10 ity of Declo [facility] 4.2.7.2.686 Frankie as [phone] [address] 2021-12-15 2021-12-15 [facility] 1.2.840.114 [id number] Univers 00:00:00 00:00:00 [facility] 350.1.13.10 it y of [place] 4.2.7.2.686 Frankie as PROFESSIO [phone] La mary NAL [address] [place] OFFICE [facility] ONE 2021-12-08 2021-12-08 [facility] 1.2.840.114 [id number] Univers 00:00:00 00:00:00 Nereida HEALTH 350.1.13.10 it y of [place] 4.2.7.2.686 Frankie as JAVIER?BLEA [id number] La dical JAMILAEY [address] [place] MEDICAL OFFICE BUILDING 2021-12-04 2021-12-04 [facility] Mason [facility] [id number] [facility] 08:54:00 10:51:00 Encounter Dewayne [facility] 2021-12-04 2021-12-04 Outpatient [facility] Surgery [id number] [facility] 08:54:00 10:51:00 DEAWYNE 2021-12-04 2021-12-04 Surgery Mason, [facility] [id number] [facility] 09:00:00 10:30:00 Dewayne [facility] 2021-11-19 2021-11-19 Gala Sheriff [facility] 1.2.275.061 [id number] Univers 00:00:00 00:00:00 Nereida HEALTH 350.1.13.10 it y of [place] 4.2.7.2.686 Frankie as JAVIER?BLEA [id number] [address] OFFICE [facility] 2021-11-15 2021-11-15 Rohith Sheriff [facility] 1.2.840.114 [id number] Univers 00:00:00 00:00:00 Nereida [facility] 350.1.13.10 it y of [place] 4.2.7.2.686 Frankie as PROFESSIO [id number] [address] 2021-11-06 2021-11-06 [facility] 1.2.840.114 [id number] Univers 00:00:00 00:00:00 Nereida [facility] 350.1.13.10 it y of [place] 4.2.7.2.686 Frankie as JAVIER?BLEA [phone] [address] 2021-11-01 2021-11-01 Outpatient Aguilar_M VFP VFP [id number] [facility] 02:58:00 02:58:00 [id number] Family Practic e 2021-10-27 2021-10-27 Rohith SheriffFORD, UTDERREK 1.2.840.114 [id number] Univers 00:00:00 00:00:00 [facility] 350.1.13.10 it y of [place] 4.2.7.2.686 Frankie as PROFESSIO [phone] [address] 2021-10-16 2021-10-16 Rohith Sheriff [facility] 1.2.840.114 [id number] Univers 00:00:00 00:00:00 Nere[facility] 350.1.13.10 it y of [place] 4.2.7.2.686 Frankie as PROFESSIO [phone] [facility] [address] [place] OFFICE [facility] ONE 2021-10-11 2021-10-11 Outpatient Aguilar_M VFP VFP [id number] 4520 [facility] 06:17:00 06:17:00 [id number] Family [facility] e 2021-10-07 2021-10-07 [facility] 1.2.840.114 [id number] Univers 00:00:00 00:00:00 [facility] 350.1.13.10 it y of [place] 4.2.7.2.686 Frankie as JAVIER?BLEA [phone] [address] OFFICE [facility] 2021-10-03 2021-10-03 Outpatient Aguilar_M VFP VFP 07536 [facility]20 [facility] 05:34:00 05:34:00 [id number] [facility] e 2021-09-29 2021-09-29 [facility] 1.2.572.949 [id number] Univers 00:00:00 00:00:00 [facility] 350.1.13.10 it y of SURGICAL 4.2.7.2.686 Frankie as SPECIALTI [phone] La dic[address] 2021-09-18 2021-09-18 Outpatient Marsha SHERIFF [facility] [id number] Univers 10:15:00 10:15:[address] [facility] 2021-09-18 2021-09-18 Office [facility] 1.2.840.114 [id number] Univers 08:40:07 08:55:07 Visit [facility] 350.1.13.10 it y of [place] 4.2.7.2.686 Frankie as JAVIER?BLEA [phone] [address] OFFICE [facility] 2021-09-18 2021-09-18 Outpatient Marsha [facility] [id number] Univers 10:15:00 08:52:38 [facility] 2021-09-08 2021-09-08 Refmaddie [facility] 1.2.840.114 [id number] Univers 00:00:00 00:00:00 Nereida HEALTH 350.1.13.10 it y of [place] 4.2.7.2.686 Frankie as JAVIER?BLEA [id number] La mary GOEL [address] [place] MEDICAL OFFICE BUILDING 2021-09-04 2021-09-04 Refmaddie [facility] 1.2.840.114 [id number] Univers 00:00:00 00:00:00 Nereida HEALTH 350.1.13.10 it y of [place] 4.2.7.2.686 Frankie as PROFESSIO [phone] La dicjessica NAL [facility] Branch OFFICE BUILDING ONE 2021-08-28 2021-08-28 [facility] 1.2.840.114 [id number] Univers 00:00:00 00:00:00 Nereida [facility] 350.1.13.10 it y of [place] 4.2.7.2.686 Frankie as PROFESSIO [phone] [facility] NAL [address] [place] [address] OFFICE BUILDING ONE 2021-08-22 2021-08-22 [facility] 1.2.840.114 [id number] Univers 00:00:00 00:00:00 Nereida [facility] 350.1.13.10 it y of [place] 4.2.7.2.686 Frankie as Professio [phone] [address] Office Building One 2021-08-21 2021-08-21 Yousuf Hwang [facility] [place] - [id number] [facility] 00:00:00 00:00:00 [facility] [id number] Family [facility] Pract brando GRIFFIN: [address], [place] [address] , Ph. 2021-08-20 2021-08-20 Outpatient Lm_Marsha [facility] [id number] [facility] 04:30:00 04:30:00 [id number] Patel lopez 2021-08-20 2021-08-20 [place] [facility] 1.2.110.788 [id number] Univers 00:00:00 00:00:00 [facility] 350.1.13.10 it y of [place] 4.2.7.2.686 Frankie as Javier?Blea [phone] [address] 2021-08-07 2021-08-07 [facility] 1.2.840.114 [id number] Univers 00:00:00 00:00:00 [facility] 350.1.13.10 it y of [place] 4.2.7.2.686 Frankie as Javier?Blea [phone] [address] 2021-07-14 2021-07-14 [facility] 1.2.840.114 [id number] Univers 00:00:00 00:00:00 [facility] 350.1.13.10 it y of [place] 4.2.7.2.686 Frankie as Javier?Blea [phone] [address] 2021-07-11 2021-07-11 Imm/Inj Nurse, Adc Pob Immunization [facility] 1.2.840.114 [id number] Univers 10:44:02 10:44:14 Visit Miguel Patel 350..13 .10 ity [facility] 4.2.7.2.686 [place] Profess[place] [phone] [address] 2021-07-11 2021-07-11 Outpatient R IRAIS [facility] [id number] Univers 10:30:00 10:30:00 MIGUEL pierre [facility] 2021-07-10 2021-07-10 [facility] 1.2.840.114 [id number] Univers 00:00:00 00:00:00 [facility] 350.1.13.10 it y of [place] 4.2.7.2.686 Frankie as Javier?Blea [phone] [address] 2021-06-29 2021-06-29 [facility] 1.2.840.114 [id number] Univers 00:00:00 00:00:00 [facility] 350.1.13.10 it y of [place] 4.2.7.2.686 Frankie as Professio [phone] La dical nal [address] [place] Office [facility] One 2021-06-24 2021-06-24 [facility] 1.2.840.114 [id number] Univers 00:00:00 00:00:00 [facility] 350.1.13.10 it y of [place] 4.2.7.2.686 Frankie as Professio [phone] La dical nal [address] [place] [address] Office [facility] One 2021-06-10 2021-06-10 [facility] 1.2.840.114 [id number] Univers 00:00:00 00:00:00 [facility] 350.1.13.10 it y of [place] 4.2.7.2.686 Frankie as Professio [phone] La dical nal [address] [place] [address] One 2021-06-09 2021-06-09 [facility] 1.2.840.114 [id number] Univers 00:00:00 00:00:00 [facility] 350.1.13.10 it y of [place] 4.2.7.2.686 Frankie as Professio [phone] La dical nal [address] [place] [address] One 2021-06-09 2021-06-09 [facility] 1.2.840.114 [id number] Univers 00:00:00 00:00:00 [facility] 350.1.13.10 it y of [place] 4.2.7.2.686 Frankie as Professio [phone] La dical nal [address] [place] [address] One 2021-06-01 2021-06-01 [facility] 1.2.840.114 [id number] Univers 00:00:00 00:00:00 [facility] 350.1.13.10 it y of [place] 4.2.7.2.686 Frankie as Professio [phone] La dical nal [address] [place] [address] Office [facility] One 2021-05-15 2021-05-15 Chris [facility] 1.2.840.114 [id number] Univers 00:00:00 00:00:00 Nancy Hermosillo L [facility] 350.1.13.10 i ty of [place] 4.2.7.2.686 Frankie as Professio [phone] [address] Office [facility] One 2021-05-14 2021-05-14 Nurse Cbc, Medicare Wellness [facility] B 1.2.840.114 [id number] Univers 09:04:42 10:32:18 Visit Nereida Sheriff [facility] 350.1.13.10 ity of [place] 4.2.7.2.686 Frankie as Professio [phone] [address] Office [facility] One 2021-05-14 2021-05-14 Office Jaziel [facility] 1.2.840.114 [id number] Univers 08:58:25 09:13:25 Visit Nereida [facility] 350.1.13.10 it y of [place] 4.2.7.2.686 Frankie as Professio [phone] [address] One 2021-05-14 2021-05-14 Outpatient Marsha SHERIFF [facility] [id number] Univers 09:00:00 09:00:00 NEREIDA pierre [facility] 2021-05-12 2021-05-12 Rohith Sheriff [facility] 1.2.840.114 [id number] Univers 00:00:00 00:00:00 [facility] 350.1.13.10 it y of [place] 4.2.7.2.686 Frankie as Professio [phone] [address] One 2021-04-30 2021-04-30 Outpatient Marsha JOYCE [facility] [id number] Univers 13:15:00 13:15:00 DUSTIN pierre [facility] 2021-04-23 2021-04-23 Outpatient Marsha SHERIFF [facility] [id number] Univers 00:00:00 00:00:00 NEREIDA pierre [facility] 2021-04-14 2021-04-14 Rohith Sheriff [facility] 1.2.840.114 [id number] Univers 00:00:00 00:00:00 [facility] 350.1.13.10 it y of [place] 4.2.7.2.686 Frankie as Professio [phone] La dic[address] Office [facility] One 2021-04-03 2021-04-03 Hammad Chaney 1.2.840.114 [id number] Univers 00:00:00 00:00:00 Management , Mary Draper 350.1.13.10 ity of [place].2.7.2.686 [place] [phone] [address] 2021-03-26 2021-03-26 Refmaddie [facility] 1.2.840.114 [id number] Univers 00:00:00 00:00:00 [facility] 350.1.13.10 it y of [place] 4.2.7.2.686 Frankie as Professio [phone] [address] Office [facility] One 2021-03-26 2021-03-26 [facility] 1.2.840.114 [id number] 00:00:00 00:00:00 [facility] 350.1.13.10 [place] 4.2.7.2.686 Professio [phone] [place] [address] Office [facility] One 2021-03-25 2021-03-25 [facility] 1.2.840.114 [id number] Univers 00:00:00 00:00:00 [facility] 350.1.13.10 it y of [place] 4.2.7.2.686 Frankie as Professio [phone] [facility] nal [address] [place] [address] Office [facility] One 2021-03-25 2021-03-25 [facility] 1.2.840.114 [id number] 96 00:00:00 00:00:00 [facility] 350.1.13.10 [place] 4.2.7.2.686 Professio [phone] [place] [address] Office Building One 2021-03-18 2021-03-18 Gaal [facility] 1.2.591.199 [id number] Univers 00:00:00 00:00:00 Nereida [place] 350.1.13.10 i ty of [place] 4.2.7.2.686 [place] Profess[place] [phone] [address] 2021-03-18 2021-03-18 Telephone [facility] 1.2.363.460 [id number] 00:00:00 00:00:00 Nereida Lee 350.1.13.10 [place] 4.2.7.2.686 Professio [phone] [address] 2021-03-13 2021-03-13 Telephone [facility] 1.2.588.483 [id number] Univers 00:00:00 00:00:00 [facility] 350.1.13.10 it y of [place] 4.2.7.2.686 Frankie as Professio [phone] [address] One 2021-03-13 2021-03-13 Gala [facility] 1.2.334.552 [id number] 00:00:00 00:00:00 [facility] 350.1.13.10 [place] 4.2.7.2.686 Professio [phone] [address] One 2021-03-10 2021-03-10 Outpatient Marsha BRAND [facility] [id number] Univers 12:00:00 12:00:00 AMANDA pierre [facility] 2021-03-10 2021-03-10 Urgent Provider, [facility] Urgent [facility] 1.2.840.114 [id number] Univers 11:16:36 11:36:36 Amanda Montes De Oca [facility] 350.1.13.10 ity of [place] 4.2.7.2.686 Frankie as Professio [phone] [address] Office [facility] One 2021-03-10 2021-03-10 Refill [facility] 1.2.840.114 [id number] Univers 00:00:00 00:00:00 [facility] 350.1.13.10 it y of [place] 4.2.7.2.686 Frankie as Professio [phone] [address] Office [facility] One 2021-02-25 2021-02-25 Telephone [facility] 1.2.452.627 [id number] Univers 00:00:00 00:00:00 [facility] 350.1.13.10 it y of [place] 4.2.7.2.686 Frankie as Professio [id number] [address] Office [facility] One 2021-02-20 2021-02-20 Refill [facility] 1.2.840.114 [id number] Univers 00:00:00 00:00:00 [facility] 350.1.13.10 it y of [place] 4.2.7.2.686 Frankie as Professio [phone] [address] One 2021-02-12 2021-02-12 Office [facility] 1.2.840.114 [id number] Univers 09:00:39 09:22:35 Visit [facility] 350.1.13.10 it y of [place] 4.2.7.2.686 Frankie as Professio [phone] [address] Office [facility] One 2021-02-12 2021-02-12 Outpatient R [facility] [id number] Univers 09:00:00 09:00:00 NEREIDA ity of [facility] 2021-02-12 2021-02-12 Orders Doctor OLGA 1.2.840.114 [id number] Univers 00:00:00 00:00:00 Only Unassigned, STEVE 350.1.13.10 ity of Declo [facility] 4.2.7.2.686 Frankie as [phone] [address] 2021-02-10 2021-02-10 Refill [facility] 1.2.840.114 [id number] Univers 00:00:00 00:00:00 [facility] 350.1.13.10 it y of [place] 4.2.7.2.686 Frankie as Professio [phone] [address] Office Building One 2021-01-06 2021-01-06 Telephone [facility] 1.2.788.211 [id number] Univers 00:00:00 00:00:00 [facility] 350.1.13.10 it y of [place] 4.2.7.2.686 Frankie as Professio [phone] La dical nal [address] [place] [address] One 2021-01-06 2021-01-06 [place] [facility] 1.2.249.001 [id number] Univers 00:00:00 00:00:00 [facility] 350.1.13.10 it y of [place] 4.2.7.2.686 Frankie as Professio [phone] La dical nal [address] [place] [address] Office [facility] One 2021-01-01 2021-01-01 Outpatient R JAYDON [facility] [id number] Univers 15:20:00 15:20:[address] [facility] 2020-12-31 2020-12-31 Outpatient R [facility] [id number] Univers 15:50:00 15:50:[address] [facility] 2020-12-12 2020-12-12 Refill [facility] 1.2.840.114 [id number] Univers 00:00:00 00:00:00 [place] [address].1.13.10 it y of [place] 4.2.7.2.686 Frankie as Professio [phone] [address] One 2020-12-11 2020-12-11 [facility] 1.2.840.114 [id number] Univers 00:00:00 00:00:00 [facility] 350.1.13.10 it y of [place] 4.2.7.2.686 Frankie as Professio [phone] La dical nal [address] [place] [address] One 2020-12-03 2020-12-03 Outpatient R JAYDON [facility] [id number] Univers 15:50:00 15:50:[address] [facility] 2020-11-13 2020-11-13 Office [facility] 1.2.840.114 [id number] Univers 08:46:00 09:20:33 Visit [facility] 350.1.13.10 it y of [place] 4.2.7.2.686 Frankie as Professio [phone] [address] Office [facility] One 2020-11-13 2020-11-13 Outpatient R JAZIEL [facility] [id number] Univers 09:00:00 09:00:00 NEREIDA johnhenri [facility] 2020-11-11 2020-11-11 Refmaddie [facility] 1.2.840.114 [id number] Univers 00:00:00 00:00:00 Nereida [place] 350.1.13.10 i ty of [place] 4.2.7.2.[place] Profess[place] [phone] [address] 2020-10-10 2020-10-10 Telephone [facility] 1.2.993.848 [id number] Univers 00:00:00 00:00:00 [facility] 350.1.13.10 it y of [place] 4.2.7.2.686 Frankie as Professio [phone] [address] One 2020-10-10 2020-10-10 Letter [facility] 1.2.840.114 [id number] Univers 00:00:00 00:00:00 (Out) [facility] 350.1.13.10 it y of [place] 4.2.7.2.686 Frankie as Professio [phone] [facility] nal [address] [place] [address] Office [facility] One 2020-10-10 2020-10-10 Rohith [facility] 1.2.840.114 [id number] Univers 00:00:00 00:00:00 [facility] 350.1.13.10 it y of [place] 4.2.7.2.686 Frankie as Professio [phone] [address] Office [facility] One 2020-10-09 2020-10-09 Rohith [facility] 1.2.840.114 [id number] Univers 00:00:00 00:00:00 [facility] 350.1.13.10 it y of [place] 4.2.7.2.686 Frankie as Professio [phone] [address] Office [facility] One 2020-10-08 2020-10-08 Rohith [facility] 1.2.840.114 [id number] Univers 00:00:00 00:00:00 [facility] 350.1.13.10 it y of [place] 4.2.7.2.686 Frankie as Professio [phone] La dical nal 044 [facility] 2020-10-04 2020-10-04 Outpatient R [facility] [id number] Univers 11:15:00 11:15:00 LUAN pierre [facility] 2020-10-04 2020-10-04 Office [facility] 1.2.583.108 [id number] Univers 09:57:57 10:50:32 Visit Luan Alejandre [facility] 350.1.13.10 it y of Surgical 4.2.7.2.686 Frankie as Specialti [phone] La dical es 198 [facility] 2020-09-11 2020-09-11 Refmaddie [facility] 1.2.840.114 [id number] Univers 00:00:00 00:00:00 [facility] 350.1.13.10 it y of [place] 4.2.7.2.686 Frankie as Professio [phone] La dical nal 044 [facility] 2020-09-02 2020-09-02 Refmaddie [facility] 1.2.840.114 [id number] Univers 00:00:00 00:00:00 [facility] 350.1.13.10 it y of [place] 4.2.7.2.686 Frankie as Professio [phone] La dical nal 044 [facility] 2020-08-26 2020-08-26 Outpatient R FIDE [facility] [id number] Univers 13:30:00 13:30:00 MOE henri [facility] 2020-08-15 2020-08-15 Office [facility] 1.2.840.114 [id number] Univers 09:59:04 10:14:04 Visit Germain Pierce [facility] [id number] it y of Surgical 4.2.7.2.686 Frankie as Specialti [phone] La dical es 198 [facility] 2020-08-15 2020-08-15 Outpatient [facility] [id number] Univers 10:00:00 10:00:00 GERMAIN pierre [facility] 2020-08-13 2020-08-13 Telephone [facility] 1.2.840.114 [id number] Univers 00:00:00 00:00:00 Luan Mir [id number] it y of Surgical 4.2.7.2.686 Frankie as Specialti [phone] La dical es 198 [facility] 2020-08-12 2020-08-12 Office [facility] 1.2.840.114 [id number] Univers 09:06:31 09:21:31 Visit Nereida [facility] 350.1.13.10 it y of [place] 4.2.7.2.686 Frankie as Professio [phone] La dical nal 044 [place] Office [facility] 2020-08-12 2020-08-12 Outpatient R [facility] [id number] Univers 09:00:00 09:00:00 NEREIDA pierre [facility] 2020-08-08 2020-08-08 Office [facility] [id number] Univers 14:52:25 15:06:19 Visit Luan Alejandre [facility] [id number] it y of Surgical 4.2.7.2.686 Frankie as Specialti [phone] La dical es 198 [facility] 2020-08-08 2020-08-08 Outpatient R [facility] [id number] Univers 15:00:00 15:00:00 LUAN pierre [facility] 2020-08-05 2020-08-05 Emergency [facility] [id number] Univers 15:02:00 17:02:00 Brigida Marsha Lee 350.1.13.10 i ty [place]2.7.2.[place] [phone] [facility] [address] [place] 2020-08-05 2020-08-05 Orders Doctor ESPINOZA 1.2.840.114 [id number] Univers 00:00:00 00:00:00 Only Unassigned, STEVE 350.1.13.10 [facility]y [facility] 4.2.7.2.686 Frankie as [phone] [address] 2020-08-01 2020-08-01 Office [facility] [id number] Univers 14:43:38 16:10:03 Visit Almita Lee 350.1.13.10 i ty [place] 4[place]2.7.2.[place] Profess[place] [phone] [facility] 188 [facility] 2020-08-01 2020-08-01 Outpatient R [facility] [id number] Univers 14:30:00 14:30:00 ALMITA pierre [facility] 2020-07-29 2020-07-29 [facility] 1.2.840.114 [id number] Univers 00:00:00 00:00:00 [facility] 350.1.13.10 it y of [place] 4.2.7.2.686 [place] as Professio [phone] [address] 2020-07-23 2020-07-23 Outpatient [facility] [id number] Univers 14:15:00 14:15:00 ALMITA pierre [facility] 2020-07-23 2020-07-23 [facility] 1.2.840.114 [id number] Univers 00:00:00 00:00:00 [facility] 350.1.13.10 it y of [place] 4.2.7.2.686 [place] as Professio [phone] [address] 2020-07-22 2020-07-22 Outpatient R [facility] [id number] Univers 10:00:00 10:00:00 KEN pierre [facility] 2020-07-15 2020-07-15 Rohith [facility] 1.2.840.114 [id number] Univers 00:00:00 00:00:00 [facility] [id number] it y of [place] [id number] [place] as Professio [phone] [address] 2020-06-26 2020-06-26 [facility] 1.2.840.114 [id number] Univers 00:00:00 00:00:00 [facility] 350.1.13.10 it y of [place] 4.2.7.2.686 [place] as Professio [phone] [address] Office [facility] 2020-06-25 2020-06-25 Outpatient R [facility] [id number] Univers 13:30:00 13:30:00 WENTONG ity of [facility] 2020-06-12 2020-06-12 Refmaddie [facility] 1.2.840.114 [id number] Univers 00:00:00 00:00:00 [facility] 350.1.13.10 it y of [place] 4.2.7.2.686 [place] as Professio [phone] [address] Office [facility] 2020-06-12 2020-06-12 Gala [facility] [id number] Univers 00:00:00 00:00:00 [facility] 350.1.13.10 it y of [place] [id number] [place] as Professio [phone] [address] One 2020-06-11 2020-06-11 [facility] 1.2.840.114 [id number] Univers 00:00:00 00:00:00 [facility] 350.1.13.10 it y of [place] 4.2.7.2.686 [place] as Professio [phone] [address] One 2020-06-05 2020-06-05 [facility] 1.2.840.114 [id number] Univers 00:00:00 00:00:00 [facility] 350.1.13.10 it y of [place] 4.2.7.2.686 [place]ie as Professio [phone] [address] Office [facility] 2020-05-28 2020-05-28 Gala [facility] [id number] [id number] Univers 00:00:00 00:00:00 [place] 350.1.13.10 i ty of [place]2.7.2.[place] [phone] La dical nal 044 [facility] 2020-05-13 2020-05-13 Reeling 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 Operator Jenniffer Paige Lab Main [facility] 1.2.8 40.114 [id number] Univers 14:52:09 15:07:09 Visit Nereida Sheriff 350.1.13.10 ity of [place]2.[place].2.[place] [phone] [facility] nal 353 [facility] 2020-05-13 2020-05-13 Outpatient R JAZIEL [facility] [id number] Univers 14:30:00 14:30:00 NEREIDA ithenri [facility] 2020-05-13 2020-05-13 Office [facility] 1.2.840.114 [id number] Univers 13:57:32 14:12:32 Visit Nereida Lee 350.1.13.10 i ty [place] 4[place]2.7.2.[place] [phone] La dicct nal [address] [place] [address] 2020-05-09 2020-05-09 Refill [facility] 1.2.840.114 [id number] Univers 00:00:00 00:00:00 [facility] 350.1.13.10 it y of [place] 4.2.7.2.686 [place] Professio [phone] [address] 2020-04-10 2020-04-10 Refill [facility] 1.2.840.114 [id number] Univers 00:00:00 00:00:00 [facility] 350.1.13.10 it y of [place] 4.2.7.2.686 [place] as Professio [phone] [address] 2020-03-13 2020-03-13 Telephone [facility] 1.2.009.972 [id number] Univers 00:00:00 00:00:00 Nereida Lee 350.1.13.10 i ty of [place] 4.2.7.2.[place] [phone] [facility] nal [address] [place] [address] 2020-03-11 2020-03-11 Refmaddie [facility] 1.2.840.114 [id number] Univers 00:00:00 00:00:00 [facility] 350.1.13.10 it y of [place] 4.2.7.2.686 [place] as Professio [phone] [facility] 044 [facility] One 2020-02-20 2020-02-20 Telemcabrera RamirezZUNI [facility] 1.2.840.114 [id number] Univers 08:07:16 16:58:17 ne Visit Travis Lee 350.1.13.10 ity of [place] 4.2.7.2.686 [place] [phone] [facility] 220 [facility] 2020-02-20 2020-02-20 Outpatient R JAMES [facility] [id number] Univers 15:00:00 15:00:00 [facility] 2020-02-15 2020-02-15 Outpatient R [facility] [id number] Univers 07:30:00 07:30:00 NEREIDA henri [facility] 2020-02-15 2020-02-15 Telemedici [facility] 1.2.840.114 [id number] Univers 06:51:18 07:06:18 ne Visit Nreeida Lee 350.1.13.10 ity of [place] 4.2.7.2.[place] [phone] [address] 2020-02-14 2020-02-14 Outpatient R [facility] [id number] Univers 07:00:00 07:00:00 NEREIDA pierre [facility] 2020-02-12 2020-02-12 Rohith [facility] 1.2.840.114 [id number] Univers 00:00:00 00:00:00 [facility] 350.1.13.10 it y of [place] 4.2.7.2.686 [place] as Professio [phone] [address] One 2020-01-11 2020-01-11 Rohith [facility] 1.2.840.114 [id number] Univers 00:00:00 00:00:00 [facility] 350.1.13.10 it y of [place] 4.2.7.2.686 [place]ie as Professio [phone] La dical nal [address] [place] [address] Office Building One 2019-12-28 2019-12-28 Office Jaziel [facility] 1.2.840.114 [id number] Univers 09:22:44 09:56:04 Visit [facility] 350.1.13.10 it y of [place] 4.2.7.2.686 [place]ie as Professio [phone] [address] Office Building One 2019-12-28 2019-12-28 Outpatient R SHERIFF [facility] [id number] Univers 09:30:00 09:30:00 [facility] 2019-12-14 2019-12-14 Refill [facility] 1.2.840.114 [id number] Univers 00:00:00 00:00:00 [facility] 350.1.13.10 it y of [place] 4.2.7.2.686 [place]ie as Professio [phone] [facility] nal [address] [place] [address] Office [facility] 2019-12-11 2019-12-11 Telephone [facility] [id number] Univers 00:00:00 00:00:00 [facility] 350.1.13.10 it y of [place] 4.2.7.2.686 [place]ie as Professio [phone] La dical nal [address] [place] [address] Office [facility] 2019-12-02 2019-12-02 Refill [facility] 1.2.840.114 [id number] Univers 00:00:00 00:00:00 [facility] 350.1.13.10 it y of [place] 4.2.7.2.686 [place]ie as Professio [phone] La dical nal [address] [place] [address] Office Building One 2019-11-15 2019-11-15 Office [facility] 1.2.840.114 [id number] Univers 06:58:39 07:13:39 Visit [facility] 350.1.13.10 it y of [place] 4.2.7.2.686 [place] as Professio [phone] [facility] nal [address] [place] [address] Office Building One 2019-10-27 2019-10-27 Outpatient R JENNIFER [facility] [id number] Univers 09:55:58 23:59:00 ZACARIAS ity [facility] 2019-07-20 2019-07-20 Refmaddie [facility] 1.2.840.114 [id number] Univers 00:00:00 00:00:00 [facility] 350.1.13.10 it y of [place] 4.2.7.2.686 [place] as Professio [phone] [address] Office [facility] 2019-07-04 2019-07-04 Refmaddie [facility] 1.2.840.114 [id number] Univers 00:00:00 00:00:00 [facility] 350.1.13.10 it y of [place] 4.2.7.2.686 [place] as Professio [phone] [address] One 2019-06-28 2019-06-28 Office [facility] 1.2.840.114 [id number] Univers 09:34:17 10:06:56 Visit [facility] 350.1.13.10 it y of [place] 4.2.7.2.686 [place] as Professio [phone] [address] One 2019-06-28 2019-06-28 Refmaddie [facility] 1.2.840.114 [id number] Univers 00:00:00 00:00:00 [facility] 350.1.13.10 it y of [place] 4.2.7.2.686 [place] as Professio [phone] [address] One 2019-06-21 2019-06-21 Refmaddie [facility] 1.2.840.114 [id number] Univers 00:00:00 00:00:00 [facility] 350.1.13.10 it y of [place] 4.2.7.2.686 [place] as Professio [phone] [address] Office [facility] 2018-12-09 2018-12-09 Ambulatory nullFlavo MNA [id number] Memoria 20:45:00 20:45:00 Pre-Reg r Neurology 03 l Swain Dawood 2018-12-09 2018-12-09 Ambulatory nullFlavo MNA [id number] Memoria 20:45:00 20:45:00 Pre-Reg r Neurology 03 l Juan Dawood 2018-12-09 2018-12-09 Outpatient MHIE MHIE [id number] Memoria 14:45:00 14:45:00 03 bonnie Dawood 2018-12-09 2018-12-09 Outpatient Stephenie [facility] [id number] 14:45:00 14:45:00 John Daina Mcmanus 2018-07-26 2018-07-26 Outpatient MHIE MHIE [id number] Memoria 09:00:00 09:00:00 02 bonnie SolomonDawood 2018-07-26 2018-07-26 Outpatient MHIE MHIE [id number] Memoria 09:00:00 09:00:00 02 bonnie [place] 2018-04-26 2018-04-26 Outpatient MHIE MHIE [id number] Memoria 08:30:00 08:30:00 01 bonnie [place] 2018-04-26 2018-04-26 Outpatient MHIE MHIE [id number] Memoria 08:30:00 08:30:00 01 bonnie [place] 2018-04-04 2018-04-05 Day nullFlavo [facility] [id number] Memoria 17:57:00 04:59:00 Surgery r [place] 02 [facility] 2018-04-04 2018-04-05 Day nullFlavo [facility] [id number] Memoria 17:57:00 04:59:00 Surgery r [place] 02 l [facility] 2018-04-04 2018-04-04 Outpatient Kimberly Ng [facility] [id number] 12:57:00 23:59:00 Han 2018-03-30 2018-03-30 Outpatient MHIE MHIE [id number] Memoria 13:30:00 13:30:00 00 bonnie [place] 2018-03-30 2018-03-30 Outpatient MHIE MHIE [id number] Memoria 13:30:00 13:30:00 00 bonnie [place]wood 2018-03-21 2018-03-22 Day nullFlavo [facility] [id number] Memoria 19:01:00 04:59:00 Surgery r Dawood 01 l [facility] 2018-03-21 2018-03-22 Day nullFlavo [facility] [id number] Memoria 19:01:00 04:59:00 Surgery r Dawood 01 l [facility] 2018-03-21 2018-03-21 Outpatient Kimberly Ng [facility] [id number] 14:01:00 23:59:00 Han 2015-11-08 2015-11-08 Bedded nullFlavo [facility] [id number] Memoria 18:06:00 21:20:00 Outpatient r [place] 00 l [place] 2015-11-08 2015-11-08 Bedded nullFlavo [facility] [id number] Memoria 18:06:00 21:20:00 Outpatient r [place] 00 l [place] 2015-11-08 2015-11-08 Outpatient Yolanda, MORRISSL SL [id number] 12:06:00 15:20:00 Sheilendra 00 [place] 2015-10-24 2015-10-25 Outpt Diag nullFlavo [facility] [id number] Memoria 15:50:00 05:59:00 Services r Outpatient 00 l Imaging Da[place] 2015-10-24 2015-10-25 Outpt Diag nullFlavo [facility] [id number] Memoria 15:50:00 05:59:00 Services r Outpatient 00 l Imaging [place] 2015-10-24 2015-10-24 Outpatient Yolanda, [facility] [id number] 09:50:00 23:59:00 Sheilendra 00 [facility] Results Test Description Test Time Test Comments [...] given. Lab Interpretation (test Abnormal code = 66113-0) [facility] [id number] 18:11:00 Test Item Value Reference Range Interpretation [...] given. Lab Interpretation Abnormal (test code = 04958-8) [facility] [id number] 18:11:00 Test Item Value Reference Range Interpretation [...] given. Lab Interpretation Abnormal (test code = 01470-4) [facility] [id number] 18:11:00 Test Item Value Reference Range Interpretation [...] given. Lab Interpretation Abnormal (test code = 41020-4) [facility] [id number] 18:11:00 Test Item Value Reference Range Interpretation [...] given. Lab Interpretation Abnormal (test code = 08328-6) [facility] [id number] 18:11:00 Test Item Value Reference Range Interpretation [...] given. Lab Interpretation Abnormal (test code = 28698-6) [facility] [id number] 18:11:00 Test Item Value Reference Range Interpretation [...] given. Lab Interpretation Abnormal (test code = 49466-1) [facility] Glucose [id number] 17:09:21 Test Item Value Reference Interpretation Comments [...] te st results by core lab methodology. La thod description: Al l results are soraya sured using Electrochemistr y test methodology. Th e glucose in the sample mixes with the reagents on the test strip. The reac tion produces an cristine ctric current. The am ount of current prod uced is proportional to the glucose concentration i n the blood. PO Sample Type (test Capillary code = 9554) Performing Lab (test [facility] code = 40695) [facility] [address] [facility] [place] [address]; Varnish Mixer: Margarita Jacob MD; Waived Point of Care Testing - Gabrielle aaron MD Lab Interpretation Abnormal (test code = 85628-7) [facility] Glucose [id number] 17:09:21 Test Item Value Reference Interpretation Comments [...] te st results by core lab methodology. La thod description: Al l results are soraya sured using Electrochemistr y test methodology. Th e glucose in the sample mixes with the reagents on the test strip. The reac tion produces an cristine ctric current. The am ount of current prod uced is proportional to the glucose concentration i n the blood. PO Sample Type (test Capillary code = 9554) Performing Lab (test [facility] code = 66260) [facility] Cli nical Lab, [address] [facility], [place] [address]; Varnish Mixer: Margarita Jacob MD; Waived Point of Care Testing - Gabrielle aaron MD Lab Interpretation Abnormal (test code = 05154-3) [facility] Glucose [id number] 17:09:21 Test Item Value Reference Interpretation Comments [...] Capillary code = 9554) Performing Lab (test [facility] code = 94938) [facility] Cli nical Lab, [address] [facility] Tracy[place], [place] [address]; Varnish Mixer: Margarita Jacob MD; Waived Point of Care Testing - Gabrielle aaron MD Lab Interpretation Abnormal (test code = 98325-8) [facility] Glucose [id number] 17:09:21 Test Item Value Reference Interpretation Comments [...] Capillary code = 9554) Performing Lab (test [facility] code = 24400) [facility] Cli nical Lab, [address] [place] [address]; Varnish Mixer: Margarita Jacob MD; Waived Point of Care Testing - Gabrielle aaron MD Lab Interpretation Abnormal (test code = 58496-0) [facility] Glucose [id number] 17:09:21 Test Item Value Reference Interpretation Comments [...] Capillary code = 9554) Performing Lab (test [facility] code = 59320) [facility] Cli nical Lab, [address] [place] [place] [address]; Varnish Mixer: Margarita Jacob MD; Waived Point of Care Testing - Gabrielle aaron MD Lab Interpretation Abnormal (test code = 29735-0) [facility] Glucose [id number] 17:09:21 Test Item Value Reference Interpretation Comments [...] Capillary code = 9554) Performing Lab (test [facility] code = 15893) [facility], [address] [place] [address]; Varnish Mixer: Margarita Jacob MD; Waived Point of Care Testing - Gabrielle aaron MD Lab Interpretation Abnormal (test code = 37518-6) [facility] [id number] 17:09:21 Test Item Value Reference Interpretation Comments [...] Capillary code = 9554) Performing Lab (test [facility] code = 61914) [facility], [address] [facility] [place], [place] [address]; Varnish Mixer: Margarita Jacob MD; Waived Point of Care Testing - Gabrielle aaron MD Lab Interpretation Abnormal (test code = 46613-9) [facility] [id number] 12:26:50 Test Item Value Reference Range Interpretation Comments Phosphorus (test code = 2777-1) 4.3 mg/dL 2.5-4.5 [facility] [id number] 12:26:50 Test Item Value Reference Range Interpretation Comments Phosphorus (test code = 2777-1) 4.3 mg/dL 2.5-4.5 [facility] [id number] 12:26:50 Test Item Value Reference Range Interpretation Comments Phosphorus (test code = 2777-1) 4.3 mg/dL 2.5-4.5 [facility] [id number] 12:26:50 Test Item Value Reference Range Interpretation Comments Phosphorus (test code = 2777-1) 4.3 mg/dL 2.5-4.5 [facility] [id number] 12:26:50 Test Item Value Reference Range Interpretation Comments Phosphorus (test code = 2777-1) 4.3 mg/dL 2.5-4.5 [facility] [id number] 12:26:50 Test Item Value Reference Range Interpretation Comments Phosphorus (test code = 2777-1) 4.3 mg/dL 2.5-4.5 [facility] [id number] 12:26:50 Test Item Value Reference Range Interpretation Comments Phosphorus (test code = 2777-1) 4.3 mg/dL 2.5-4.5 [facility] [id number] 16:10:55 Test Item Value Reference Range Interpretation Comments Final Report (test code = 8488) No growth [facility] [id number] 16:10:55 Test Item Value Reference Range Interpretation Comments Final Report (test code = 8488) No growth [facility] [id number] 16:10:55 Test Item Value Reference Range Interpretation Comments Final Report (test code = 8488) No growth [facility] [id number] 16:10:55 Test Item Value Reference Range Interpretation Comments Final Report (test code = 8488) No growth [facility] [id number] 16:10:55 Test Item Value Reference Range Interpretation Comments Final Report (test code = 8488) No growth [facility] [id number] 16:10:55 Test Item Value Reference Range Interpretation Comments Final Report (test code = 8488) No growth [facility] [id number] 16:10:55 Test Item Value Reference Range Interpretation Comments Final Report (test code = 8488) No growth [facility]20[facility]-14 16:06:17 Test Item Value Reference Range Interpretation Comments Procalcitonin (test 0.38 ng/mL <=0.08 H Procalci tonin > 2.00 code = 54243-6) ng/mL: Proca lcitonin levels above 2. 00 [...] extended diluti on as it exceeds the second grade teacher's recommended goldberg it. Caution should be exercised when interpreting agarwal ch values and done in conjunction wit h clinical contex t. Lab Interpretation Abnormal (test code = 23844-7) [facility]20[facility]-04-14 16:06:17 Test Item Value Reference Range Interpretation Comments Procalcitonin (test 0.38 ng/mL <=0.08 H Procalci tonin > 2.00 code = 34621-0) ng/mL: Proca lcitonin levels above 2. 00 [...] extended diluti on as it exceeds the second grade teacher's recommended goldberg it. Caution should be exercised when interpreting agarwal ch values and done in conjunction wit clinical contex t. Lab Interpretation Abnormal (test code = 20773-1) [facility]20[facility]-14 16:06:17 Test Item Value Reference Range Interpretation Comments Procalcitonin (test 0.38 ng/mL <=0.08 H Procalci tonin > 2.00 code = 86102-0) ng/mL: Proca lcitonin levels above 2. 00 [...] extended diluti on as it exceeds the second grade teacher's recommended goldberg it. Caution should be exercised when interpreting agarwal ch values and done in conjunction wit clinical contex t. Lab Interpretation Abnormal (test code = 92547-5) [facility]20[facility]-04-14 16:06:17 Test Item Value Reference Range Interpretation Comments Procalcitonin (test 0.38 ng/mL <=0.08 H Procalci tonin > 2.00 code = 36540-5) ng/mL: Proca lcitonin levels above 2. 00 [...] extended diluti on as it exceeds the second grade teacher's recommended goldberg it. Caution should be exercised when interpreting agarwal ch values and done in conjunction wit clinical contex t. Lab Interpretation Abnormal (test code = 53075-5) [facility]-14 16:06:17 Test Item Value Reference Range Interpretation Comments Procalcitonin (test 0.38 ng/mL <=0.08 H Procalci tonin > 2.00 code = 99856-8) ng/mL: Proca lcitonin levels above 2. 00 [...] extended diluti on as it exceeds the second grade teacher's recommended goldberg it. Caution should be exercised when interpreting agarwal ch values and done in conjunction wit clinical contex t. Lab Interpretation Abnormal (test code = 18141-7) [facility]20[facility]-14 16:06:17 Test Item Value Reference Range Interpretation Comments Procalcitonin (test 0.38 ng/mL <=0.08 H Procalci tonin > 2.00 code = 43966-4) ng/mL: Proca lcitonin levels above 2. 00 [...] extended diluti on as it exceeds the second grade teacher's recommended goldberg it. Caution should be exercised when interpreting agarwal ch values and done in conjunction wit clinical [employer] t. Lab Interpretation Abnormal (test code = 90351-6) [facility]20[facility]-14 16:06:17 Test Item Value Reference Range Interpretation Comments Procalcitonin (test 0.38 ng/mL <=0.08 H Procalci tonin > 2.00 code = 77773-5) ng/mL: Proca lcitonin levels above 2. 00 [...] extended diluti on as it exceeds the second grade teacher's recommended goldberg it. Caution should be exercised when interpreting agarwal ch values and done in conjunction [facility] clinical [employer] t. Lab Interpretation Abnormal (test code = 99583-4) [facility] Add[facility]On Test 2023-02-12 15:17:04 Test Item Value Reference Range Interpretation Comments Ordered (test code = 6568) Test Added Test Needed (test code = 7604) procalcitonin [facility] Add[facility]On Test 2023-02-12 15:17:04 Test Item Value Reference Range Interpretation Comments Ordered (test code = 6568) Test Added Test Needed (test code = 7604) [facility] Laboratory Add-On Test 2023-02-12 15:17:04 Test Item Value Reference Range Interpretation Comments Ordered (test code = 6568) Test Added Test Needed (test code = 7604) [facility] 2023-02-12 15:17:04 Test Item Value Reference Range Interpretation Comments Ordered (test code = 6568) Test Added Test Needed (test code = 7604) [facility] 2023-02-12 15:17:04 Test Item Value Reference Range Interpretation Comments Ordered (test code = 6568) Test Added Test Needed (test code = 7604) [facility] Laboratory Add-On Test 2023-02-12 15:17:04 Test Item Value Reference Range Interpretation Comments Ordered (test code = 6568) Test Added Test Needed (test code = 7604) [facility] Laboratory Add-On Test 2023-02-12 15:17:04 Test Item Value Reference Range Interpretation Comments Ordered (test code = 6568) Test Added Test Needed (test code = 7604) [facility] [id number] 12:16:45 Test Item Value Reference Range Interpretation Comments CK (test code = 2157-6) 125 U/L 26-192 [facility] [id number] 12:16:45 Test Item Value Reference Range Interpretation Comments CK (test code = 2157-6) 125 U/L 192 [facility] Znpfze1207-03-31 12:16:45 Test Item Value Reference Range Interpretation Comments CK (test code = 2157-6) 125 U/L 192 [facility] [id number] 12:16:45 Test Item Value Reference Range Interpretation Comments CK (test code = 2157-6) 125 U/L 26-192 [facility] [id number] 12:16:45 Test Item Value Reference Range Interpretation Comments CK (test code = 2157-6) 125 U/L 26-192 [facility] [id number] 12:16:45 Test Item Value Reference Range Interpretation Comments CK (test code = 2157-6) 125 U/L 26-192 [facility] [id number] 12:16:45 Test Item Value Reference Range Interpretation Comments CK (test code = 2157-6) 125 U/L 26-192 [facility]2 Antigen and Antibodies, Fourth [id number] 07:28:44 Test Item Value Reference Range Interpretation Comments HIV Ag/Ab, NON-REACTIVE NON-REACTIVE HIV-1 antigen a nd 4TH Gen (test HIV-1/HIV-2 an tibodies were code = 27166) notdetected. T here is no laboratory evid [...] purpose. For additional information please refer tohttp://educat ion.Skytide.com/faq /GDV853(This link is being p rovided for informational/e ducational purposes only.) The performance of this assay has not been clinicallyvalid ated in patients less t go 2 years old. Lab test p erformed by:Lab Mnemonic : Rawlemon [id number] [place] [address]ZXUCN Christelle MELÉNDEZ MD [facility] and Antibodies, Fourth [id number] 07:28:44 Test Item Value Reference Range Interpretation Comments HIV Ag/Ab, NON-REACTIVE NON-REACTIVE HIV-1 antigen a nd 4TH Gen (test HIV-1/HIV-2 an tibodies were code = 52853) notdetected. T here is no laboratory evid [...] this purpose. For additional information please refer tohttp://Alloy Digital/faq /[id number](This link is being p rovided for informational/e ducational purposes only.) The performance of this assay has not been clinicallyvalid ated in patients less t go 2 years old. Lab test p erformed by:Lab Mnemonic : Rawlemon [facility] [id number] [place] [address]KVYFC Christelle MELÉNDEZ MD [facility] and Antibodies, Fourth [id number] 07:28:44 Test Item Value Reference Range Interpretation Comments HIV Ag/Ab, NON-REACTIVE NON-REACTIVE HIV-1 antigen a nd 4TH Gen (test HIV-1/HIV-2 an tibodies were code = 32153) notdetected. T here is no laboratory evid [...] this purpose. For additional information please refer tohttp://All[employer]/faq /PGO437(This link is being p rovided for informational/e ducational purposes only.) The performance of this assay has not been clinicallyvalid ated in patients less t go 2 years old. Lab test p erformed by:Lab Mnemonic : Rawlemon [id number] [place] [address]GNRGKJAKE MELÉNDEZ MD [facility]igen and Antibodies, Fourth [id number] 07:28:44 Test Item Value Reference Range Interpretation Comments HIV Ag/Ab, NON-REACTIVE NON-REACTIVE HIV-1 antigen a nd 4TH Gen (test HIV-1/HIV-2 an tibodies were code = 78552) notdetected. T here is no laboratory evid [...] purpose. For additional information please refer tohttp://educat ion.Skytide.sonarDesign/faq /MCF827(This link is being p rovided for informational/e ducational purposes only.) The performance of this assay has not been clinicallyvalid ated in patients less t go 2 years old. Lab test p erformed by:Lab Mnemonic : Rawlemon [id number] [place] [address]KLBNCJAKE MELÉNDEZ MD [facility] Antigen and Antibodies, Fourth [id number] 07:28:44 Test Item Value Reference Range Interpretation Comments HIV Ag/Ab, NON-REACTIVE NON-REACTIVE HIV-1 antigen a nd 4TH Gen (test HIV-1/HIV-2 an tibodies were code = 70323) notdetected. T here is no laboratory evid ence of HIVinfection. P LEASE NOTE: This informatio n has been disclosed toyou from records whose confident iality may beprotected by state law. If your state requ ires suchprotection, then the state law prohi bits you frommaking any further disclosure of t he informationwith out the specific writte n consent of the [facility] it pertains, or as otherwise permitted by la w.A general authorization f or the release of medi mari orother information is NOT sufficient for this purpose. For additional information please refer tohttp://Alloy Digital/faq /FCN581(This link is being p rovided for informational/e ducational purposes only.) The performance of this assay has not been clinicallyvalid ated in patients less t go 2 years old. Lab test p erformed by:Lab Mnemonic : Rawlemon [id number] [place] [address]DWSWIJAKE MELÉNDEZ MD [facility] [place] [facility]aneHIV-1/2 Antigen and Antibodies, Fourth [id number] 07:28:44 Test Item Value Reference Range Interpretation Comments HIV Ag/Ab, NON-REACTIVE NON-REACTIVE HIV-1 antigen a nd 4TH Gen (test HIV-1/HIV-2 an tibodies were code = 34031) notdetected. T here is no laboratory evid ence of HIVinfection. P SRINATH NOTE: This informatio n has been disclosed toyou from records whose confident iality may beprotected by state law. If your state requ ires suchprotection, then the state law prohi bits you frommaking any further disclosure of t he informationwith out the specific writte n consent of the [facility] it pertains, or as otherwise permitted by [place] w.A general authorization f or the release of medi mari orother information is NOT sufficient for this purpose. For additional information please refer tohttp://EadBox.sonarDesign/faq /RVX270(This link is being p rovided for informational/e ducational purposes only.) The performance of this assay has not been clinicallyvalid ated in patients less t go 2 years old. Lab test p erformed by:Lab Mnemonic : Rawlemon [id number] [place] [address]TRFQAJAKE MELÉNDEZ MD [facility] Antibodies, Fourth [id number] 07:28:44 Test Item Value Reference Range Interpretation Comments HIV Ag/Ab, NON-REACTIVE NON-REACTIVE HIV-1 antigen a nd 4TH Gen (test HIV-1/HIV-2 an tibodies were code = 87359) notdetected. T here is no laboratory evid [...] purpose. For additional information please refer tohttp://educat ion.Skytide.sonarDesign/faq /JKB146(This link is being p rovided for informational/e ducational purposes only.) The performance of this assay has not been clinicallyvalid ated in patients less t go 2 years old. Lab test p erformed by:Lab Mnemonic : [facility] [id number] [place] [address]JMBWAJAKE MELÉNDEZ MD [facility] [id number] 13:51:10 Test Item Value Reference Range Interpretation Comments Final Report (test code = 10 - 50,000 cfu/ml A 8488) Normal site isabel present.Generally of low significance.Correl ate with clinical data and culture history. Lab Interpretation (test Abnormal code = 04740-8) [facility] [id number] 13:51:10 Test Item Value Reference Range Interpretation Comments Final Report (test code = 10 - 50,000 cfu/ml A 8488) Normal site isabel present.Generally of low significance.Correl ate with clinical data and culture history. Lab Interpretation (test Abnormal code = 90062-2) [facility] [id number] 13:51:10 Test Item Value Reference Range Interpretation Comments Final Report (test code = 10 - 50,000 cfu/ml A 8488) Normal site isabel present.Generally of low significance.Correl ate with clinical data and culture history. Lab Interpretation (test Abnormal code = 75746-4) [facility] [id number] 13:51:10 Test Item Value Reference Range Interpretation Comments Final Report (test code = 10 - 50,000 cfu/ml A 8488) Normal site isabel present.Generally of low significance.Correl ate with clinical data and culture history. Lab Interpretation (test Abnormal code = 76323-5) [facility] [id number] 13:51:10 Test Item Value Reference Range Interpretation Comments Final Report (test code = 10 - 50,000 cfu/ml A 8488) Normal site isabel present.Generally of low significance.Correl ate with clinical data and culture history. Lab Interpretation (test Abnormal code = 90846-1) [facility] [id number] 13:51:10 Test Item Value Reference Range Interpretation Comments Final Report (test code = 10 - 50,000 cfu/ml A 8488) Normal site isabel present.Generally of low significance.Correl ate with clinical data and culture history. Lab Interpretation (test Abnormal code = 63168-7) [facility] [id number] 13:51:10 Test Item Value Reference Range Interpretation Comments Final Report (test code = 10 - 50,000 cfu/ml A 8488) Normal site isabel present.Generally of low significance.Correl ate with clinical data and culture history. Lab Interpretation (test Abnormal code = 98011-6) [facility] Path [id number] 21:40:55GIMP PRReviewed and Electronically signed by Pathologist:PATRICIA CHAVEZ MD #[id number] [facility] CenterGastro[facility] Multiplex Panel Path Review 2023-02-07 21:40:55GIMP PRReviewed and Electronically signed by Pathologist:PATRICIA CHAVEZ MD #[id number] [facility]Un[facility] CenterGastrointestinal Multiplex Panel Path Review 2023-02-07 21:40:55GIMP PRReviewed and Electronically signed by Pathologist:PATRICIA CHAVEZ MD #[id number] [facility]Un[facility] CenterGastrointestinal Multiplex Panel Path Review 2023-02-07 21:40:55GIMP PRReviewed and Electronically signed by Pathologist:PATRICIA CHAVEZ MD #[id number] [facility]Un[facility] CenterGastrointestinal Multiplex Panel Path Review 2023-02-07 21:40:55GIMP PRReviewed and Electronically signed by Pathologist:PATRICIA CHAVEZ MD #[id number] [facility]Un[facility] CenterGastrointestinal Multiplex Panel Path Review 2023-02-07 21:40:55GIMP PRReviewed and Electronically signed by Pathologist:PATRICIA CHAVEZ MD #[id number] [facility]Un[facility] CenterGastrointestinal Multiplex Panel Path Review 2023-02-07 21:40:55GIMP PRReviewed and Electronically signed by Pathologist:PATRICIA CHAVEZ MD #[id number] [facility]Un[facility] CenterClostridium Difficile DNA Path Review 2023-02-07 21:35:15C diff DNA PRReviewed and Electronically signed by Pathologist:PATRICIA CHAVEZ MD #[id number] [facility]Un[facility] CenterClostridium Difficile DNA Path Review 2023-02-07 21:35:15C diff DNA PRReviewed and Electronically signed by Pathologist:PATRICIA CHAVEZ MD #[id number] [facility]Un[facility] CenterClostridium Difficile DNA Path Review 2023-02-07 21:35:15C diff DNA PRReviewed and Electronically signed by Pathologist:PATRICIA CHAVEZ MD #[id number] [facility]Un[facility] CenterClostridium Difficile DNA Path Review 2023-02-07 21:35:15C diff DNA PRReviewed and Electronically signed by Pathologist:PATRICIA CHAVEZ MD #[id number] [facility]Un[facility] CenterClostridium Difficile DNA Path Review 2023-02-07 21:35:15C diff DNA PRReviewed and Electronically signed by Pathologist:PATRIICA CHAVEZ MD #[id number] [facility]Un[facility] CenterClostridium Difficile DNA Path Review 2023-02-07 21:35:15C diff DNA PRReviewed and Electronically signed by Pathologist:PATRICIA CHAVEZ MD #[id number] [facility]Un[facility] CenterClostridium Difficile DNA Path Review 2023-02-07 21:35:15C diff DNA PRReviewed and Electronically signed by Pathologist:PATRICIA CHAVEZ MD #[id number] [facility]Un[facility] CenterHepatitis B Surface [id number] 17:09:39 Test Item Value Reference Range Interpretation Comments HBsAg. (test code = 5747) Non Reactive Non Reactive [facility] Surface [id number] 17:09:39 Test Item Value Reference Range Interpretation Comments HBsAg. (test code = 5747) Non Reactive Non Reactive [facility] Surface [id number] 17:09:39 Test Item Value Reference Range Interpretation Comments HBsAg. (test code = 5747) Non Reactive Non Reactive [facility] Surface [id number] 17:09:39 Test Item Value Reference Range Interpretation Comments HBsAg. (test code = 5747) Non Reactive Non Reactive [facility] Surface [id number] 17:09:39 Test Item Value Reference Range Interpretation Comments HBsAg. (test code = 5747) Non Reactive Non Reactive [facility] CenterHep[facility] B Surface [id number] 17:09:39 Test Item Value Reference Range Interpretation Comments HBsAg. (test code = 5747) Non Reactive Non Reactive [facility] Surface [id number] 17:09:39 Test Item Value Reference Range Interpretation Comments HBsAg. (test code = 5747) Non Reactive Non Reactive [facility] CenterHep[facility] C Virus [id number] 16:29:30 Test Item Value Reference Range Interpretation Comments HCVAb. (test Non Reactive Non Reactive Antibody detect ion in the code = 5762) immunocompromis ed and immunosuppresse d population may be delayed or absent entirely. There fore serial testing, correl ation with other clinical findings, and supplementa l testing (if available) should be taken into cons ideration when interpreti ng the results. [facility] Virus [id number] 16:29:30 Test Item Value Reference Range Interpretation Comments HCVAb. (test Non Reactive Non Reactive Antibody detect ion in the code = 5762) immunocompromis ed and immunosuppresse d population may be delayed or absent entirely. There fore serial testing, correl ation with other clinical findings, and supplementa l testing (if available) should be taken into cons ideration when interpreti ng the results. [facility] Virus [id number] 16:29:30 Test Item Value Reference Range Interpretation Comments HCVAb. (test Non Reactive Non Reactive Antibody detect ion in the code = 5762) immunocompromis ed and immunosuppresse d population may be delayed or absent entirely. There fore serial testing, correl ation with other clinical findings, and supplementa l testing (if available) should be taken into cons ideration when interpreti ng the results. [facility] Virus [id number] 16:29:30 Test Item Value Reference Range Interpretation Comments HCVAb. (test Non Reactive Non Reactive Antibody detect ion in the code = 5762) immunocompromis ed and immunosuppresse d population may be delayed or absent entirely. There fore serial testing, correl ation with other clinical findings, and supplementa l testing (if available) should be taken into cons ideration when interpreti ng the results. [facility] Virus [id number] 16:29:30 Test Item Value Reference Range Interpretation Comments HCVAb. (test Non Reactive Non Reactive Antibody detect ion in the code = 5762) immunocompromis ed and immunosuppresse d population may be delayed or absent entirely. There fore serial testing, correl ation with other clinical findings, and supplementa l testing (if available) should be taken into cons ideration when interpreti ng the results. [facility] Virus [id number] 16:29:30 Test Item Value Reference Range Interpretation Comments HCVAb. (test Non Reactive Non Reactive Antibody detect ion in the code = 5762) immunocompromis ed and immunosuppresse d population may be delayed or absent entirely. There fore serial testing, correl ation with other clinical findings, and supplementa l testing (if available) should be taken into cons ideration when interpreti ng the results. [facility] C Virus [id number] 16:29:30 Test Item Value Reference Range Interpretation Comments HCVAb. (test Non Reactive Non Reactive Antibody detect ion in the code = 5762) immunocompromis ed and immunosuppresse d population may be delayed or absent entirely. There fore serial testing, correl ation with other clinical findings, and supplementa l testing (if available) should be taken into cons ideration when interpreti ng the results. [facility] B Total Ig Core Ab (SCREENING) (anti-HBc total Ig; HBcAb total Ig)2023-02-07 16:29:12 Test Item Value Reference Range Interpretation Comments HBcAb. (test code = 5742) Non Reactive Non Reactive [facility] B Total Ig Core Ab (SCREENING) (anti-HBc total Ig; HBcAb total Ig)2023-02-07 16:29:12 Test Item Value Reference Range Interpretation Comments HBcAb. (test code = 5742) Non Reactive Non Reactive [facility] B Total Ig Core Ab (SCREENING) (anti-HBc total Ig; HBcAb total Ig)2023-02-07 16:29:12 Test Item Value Reference Range Interpretation Comments HBcAb. (test code = 5742) Non Reactive Non Reactive [facility] B Total Ig Core Ab (SCREENING) (anti-HBc total Ig; HBcAb total Ig)2023-02-07 16:29:12 Test Item Value Reference Range Interpretation Comments HBcAb. (test code = 5742) Non Reactive Non Reactive [facility] B Total Ig Core Ab (SCREENING) (anti-HBc total Ig; HBcAb total Ig)2023-02-07 16:29:12 Test Item Value Reference Range Interpretation Comments HBcAb. (test code = 5742) Non Reactive [facility] Reactive [facility] B Total Ig Core Ab (SCREENING) (anti-HBc total Ig; HBcAb total Ig)2023-02-07 16:29:12 Test Item Value Reference Range Interpretation Comments HBcAb. (test code = 5742) Non Reactive Non Reactive [facility] B Total Ig Core Ab (SCREENING) (anti-HBc total Ig; HBcAb total Ig)2023-02-07 16:29:12 Test Item Value Reference Range Interpretation Comments HBcAb. (test code = 5742) Non Reactive Non Reactive [facility] CenterClostridium Difficile DNA Assay 2023-02-07 14:32:28 Test Item Value Reference Range Interpretation Comments C difficile DNA (test Negative Negative code = 5134) C difficle Toxin EIA Test Not Performed Negative (test code = 8961) C difficile C. difficile DNA Interpretation (test code detection was = [id number]) negative making C. difficile infection highly unlikely in this patient. EIA not performed. [facility]Cl[facility] Assay 2023-02-07 14:32:28 Test Item Value Reference Range Interpretation Comments C difficile DNA (test Negative Negative code = 5134) C difficle Toxin EIA Test Not Performed Negative (test code = 8961) C difficile C. difficile DNA Interpretation (test code detection was = 1939288) negative making C. difficile infection highly unlikely in this patient. EIA not performed. [facility] CenterCl[facility] Difficile DNA Assay 2023-02-07 14:32:28 Test Item Value Reference Range Interpretation Comments C difficile DNA (test Negative Negative code = 5134) C difficle Toxin EIA Test Not Performed Negative (test code = 8961) C difficile C. difficile DNA Interpretation (test code detection was = [id number]) negative making C. difficile infection highly unlikely in this patient. EIA not performed. [facility]Cl[facility] Difficile [facility] Assay 2023-02-07 14:32:28 Test Item Value Reference Range Interpretation Comments C difficile DNA (test Negative Negative code = 5134) C difficle Toxin EIA Test Not Performed Negative (test code = 8961) C difficile C. difficile DNA Interpretation (test code detection was = [id number]) negative making C. difficile infection highly unlikely in this patient. EIA not performed. [facility] Diff[facility] Assay 2023-02-07 14:32:28 Test Item Value Reference Range Interpretation Comments C difficile DNA (test Negative Negative code = 5134) C difficle Toxin EIA Test Not Performed Negative (test code = 8961) C difficile C. difficile DNA Interpretation (test code detection was = [id number]) negative making C. difficile infection highly unlikely in this patient. EIA not performed. [facility] 2023-02-07 14:32:28 Test Item Value Reference Range Interpretation Comments C difficile DNA (test Negative Negative code = 5134) C difficle Toxin EIA Test Not Performed Negative (test code = 8961) C difficile C. difficile DNA Interpretation (test code detection was = 2248524) negative making C. difficile infection highly unlikely in this patient. EIA not performed. [facility] 2023-02-07 14:32:28 Test Item Value Reference Range Interpretation Comments C difficile DNA (test Negative Negative code = 5134) C difficle Toxin EIA Test Not Performed Negative (test code = 8961) C difficile C. difficile DNA Interpretation (test code detection was = [id number]) negative making C. difficile infection highly unlikely in this patient. EIA not performed. [facility] 2023-02-07 13:55:28 Test Item Value Reference Range Interpretation Comments Campylobacter (test code = Not Detected Not Detected 22057-3) C difficile DNA (GI Multi Refer to separate Panel) (test code = C. difficile DNA 48808-6) Assay for results Plesiomonas shigelloides Not Detected Not Detected (test code = 70899-6) Salmonella (test code = Not Detected Not Detected 62712-9) Vibrio (test code = Not Detected Not Detected 27075-9) Vibrio cholerae (test code Not Detected Not Detected = 23578-3) Yersinia enterocolitica Not Detected Not Detected (test code = 82163-4) Enteroaggregative E. coli Not Detected Not Detected (EAEC) (test code = 91989-5) Enteropathogenic E. coli Not Detected Not Detected (EPEC) (test code = 62932-4) Enterotoxigenic E. coli Not Detected Not Detected (ETEC) (test code = 18937-3) Shiga-like toxin-producing Not Detected Not Detected E. col (STEC) (test code = 66108-3) E. coli O157 (test code = Not Applicable Not Detected 41962-0) Shigella/Enteroinvasive E. Not Detected Not Detected coli (EIEC) (test code = 70851-4) Cryptosporidium (test code Not Detected Not Detected = 22799-7) Cyclospora cayetanensis Not Detected Not Detected (test code = 60136-7) Entamoeba histolytica Not Detected Not Detected (test code = 12369-4) Giardia lamblia (test code Not Detected Not Detected = 56115-3) Adenovirus F 40/41 (test Not Detected Not Detected code = 04901-8) Astrovirus (test code = Not Detected Not Detected 70486-4) Norovirus GI/GII (test Not Detected Not Detected code = 72853-6) Rotavirus A (test code = Not Detected Not Detected 29861-3) Sapovirus (I, II, IV and Not Detected Not Detected V) (test code = 48322-1) [facility] Panel 2023-02-07 13:55:28 Test Item Value Reference Range Interpretation Comments Campylobacter (test code = Not Detected Not Detected 48172-7) C difficile DNA (GI Multi Refer to separate Panel) (test code = C. difficile DNA 75025-4) Assay for results Plesiomonas shigelloides Not Detected Not Detected (test code = 35570-3) Salmonella (test code = Not Detected Not Detected 72232-4) Vibrio (test code = Not Detected Not Detected 12660-0) Vibrio cholerae (test code Not Detected Not Detected = 53822-4) Yersinia enterocolitica Not Detected Not Detected (test code = 68940-4) Enteroaggregative E. coli Not Detected Not Detected (EAEC) (test code = 57759-4) Enteropathogenic E. coli Not Detected Not Detected (EPEC) (test code = 05873-0) Enterotoxigenic E. coli Not Detected Not Detected (ETEC) (test code = 21469-3) Shiga-like toxin-producing Not Detected Not Detected E. col (STEC) (test code = 19526-9) E. coli O157 (test code = Not Applicable Not Detected 25644-9) Shigella/Enteroinvasive E. Not Detected Not Detected coli (EIEC) (test code = 12207-4) Cryptosporidium (test code Not Detected Not Detected = 54029-0) Cyclospora cayetanensis Not Detected Not Detected (test code = 76573-5) Entamoeba histolytica Not Detected Not Detected (test code = 76744-3) Giardia lamblia (test code Not Detected Not Detected = 56372-9) Adenovirus F 40/41 (test Not Detected Not Detected code = 88102-6) Astrovirus (test code = Not Detected Not Detected 06303-5) Norovirus GI/GII (test Not Detected Not Detected code = 75951-8) Rotavirus A (test code = Not Detected Not Detected 52393-3) Sapovirus (I, II, IV and Not Detected Not Detected V) (test code = 03574-8) [facility] [place] [facility] 2023-02-07 13:55:28 Test Item Value Reference Range Interpretation Comments Campylobacter (test code = Not Detected Not Detected 02668-8) C difficile DNA (GI Multi Refer to separate Panel) (test code = C. difficile DNA 50696-0) Assay for results Plesiomonas shigelloides Not Detected Not Detected (test code = 10085-1) Salmonella (test code = Not Detected Not Detected 46594-3) Vibrio (test code = Not Detected Not Detected 90509-5) Vibrio cholerae (test code Not Detected Not Detected = 40231-9) Yersinia enterocolitica Not Detected Not Detected (test code = 15464-4) Enteroaggregative E. coli Not Detected Not Detected (EAEC) (test code = 57608-6) Enteropathogenic E. coli Not Detected Not Detected (EPEC) (test code = 14335-5) Enterotoxigenic E. coli Not Detected Not Detected (ETEC) (test code = 46035-7) Shiga-like toxin-producing Not Detected Not Detected E. col (STEC) (test code = 87034-4) E. coli O157 (test code = Not Applicable Not Detected 58694-2) Shigella/Enteroinvasive E. Not Detected Not Detected coli (EIEC) (test code = 32432-2) Cryptosporidium (test code Not Detected Not Detected = 91657-7) Cyclospora cayetanensis Not Detected Not Detected (test code = 16600-8) Entamoeba histolytica Not Detected Not Detected (test code = 17588-7) Giardia lamblia (test code Not Detected Not Detected = 11327-5) Adenovirus F 40/41 (test Not Detected Not Detected code = 49944-9) Astrovirus (test code = Not Detected Not Detected 42687-8) Norovirus GI/GII (test Not Detected Not Detected code = 57416-6) Rotavirus A (test code = Not Detected Not Detected 28068-5) Sapovirus (I, II, IV and Not Detected Not Detected V) (test code = 24808-5) [facility] 2023-02-07 13:55:28 Test Item Value Reference Range Interpretation Comments Campylobacter (test code = Not Detected Not Detected 01097-6) C difficile DNA (GI Multi Refer to separate Panel) (test code = C. difficile DNA 80883-8) Assay for results Plesiomonas shigelloides Not Detected Not Detected (test code = 74795-3) Salmonella (test code = Not Detected Not Detected 86569-0) Vibrio (test code = Not Detected Not Detected 62969-0) Vibrio cholerae (test code Not Detected Not Detected = 99470-6) Yersinia enterocolitica Not Detected Not Detected (test code = 86363-8) Enteroaggregative E. coli Not Detected Not Detected (EAEC) (test code = 01242-2) Enteropathogenic E. coli Not Detected Not Detected (EPEC) (test code = 39709-3) Enterotoxigenic E. coli Not Detected Not Detected (ETEC) (test code = 43037-9) Shiga-like toxin-producing Not Detected Not Detected E. col (STEC) (test code = 23421-0) E. coli O157 (test code = Not Applicable Not Detected 00274-7) Shigella/Enteroinvasive E. Not Detected Not Detected coli (EIEC) (test code = 26449-8) Cryptosporidium (test code Not Detected Not Detected = 44906-7) Cyclospora cayetanensis Not Detected Not Detected (test code = 20922-5) Entamoeba histolytica Not Detected Not Detected (test code = 40261-8) Giardia lamblia (test code Not Detected Not Detected = 85016-4) Adenovirus F 40/41 (test Not Detected Not Detected code = 53998-8) Astrovirus (test code = Not Detected Not Detected 96724-6) Norovirus GI/GII (test Not Detected Not Detected code = 21671-2) Rotavirus A (test code = Not Detected Not Detected 72265-5) Sapovirus (I, II, IV and Not Detected Not Detected V) (test code = 39321-1) [facility] 2023-02-07 13:55:28 Test Item Value Reference Range Interpretation Comments Campylobacter (test code = Not Detected Not Detected 08716-4) C difficile DNA (GI Multi Refer to separate Panel) (test code = C. difficile DNA 23121-5) Assay for results Plesiomonas shigelloides Not Detected Not Detected (test code = 19534-2) Salmonella (test code = Not Detected Not Detected 13412-4) Vibrio (test code = Not Detected Not Detected 04092-9) Vibrio cholerae (test code Not Detected Not Detected = 81336-6) Yersinia enterocolitica Not Detected Not Detected (test code = 59995-0) Enteroaggregative E. coli Not Detected Not Detected (EAEC) (test code = 23652-5) Enteropathogenic E. coli Not Detected Not Detected (EPEC) (test code = 11832-6) Enterotoxigenic E. coli Not Detected Not Detected (ETEC) (test code = 66179-0) Shiga-like toxin-producing Not Detected Not Detected E. col (STEC) (test code = 79201-1) E. coli O157 (test code = Not Applicable Not Detected 12864-9) Shigella/Enteroinvasive E. Not Detected Not Detected coli (EIEC) (test code = 80838-6) Cryptosporidium (test code Not Detected Not Detected = 62434-0) Cyclospora cayetanensis Not Detected Not Detected (test code = 48065-8) Entamoeba histolytica Not Detected Not Detected (test code = 00713-5) Giardia lamblia (test code Not Detected Not Detected = 18452-2) Adenovirus F 40/41 (test Not Detected Not Detected code = 28523-2) Astrovirus (test code = Not Detected Not Detected 19855-6) Norovirus GI/GII (test Not Detected Not Detected code = 54227-3) Rotavirus A (test code = Not Detected Not Detected 46348-8) Sapovirus (I, II, IV and Not Detected Not Detected V) (test code = 30877-8) [facility] 2023-02-07 13:55:28 Test Item Value Reference Range Interpretation Comments Campylobacter (test code = Not Detected Not Detected 01462-2) C difficile DNA (GI Multi Refer to separate Panel) (test code = C. difficile DNA 60471-2) Assay for results Plesiomonas shigelloides Not Detected Not Detected (test code = 57358-0) Salmonella (test code = Not Detected Not Detected 00267-5) Vibrio (test code = Not Detected Not Detected 64154-8) Vibrio cholerae (test code Not Detected Not Detected = 17260-6) Yersinia enterocolitica Not Detected Not Detected (test code = 19525-8) Enteroaggregative E. coli Not Detected Not Detected (EAEC) (test code = 51916-0) Enteropathogenic E. coli Not Detected Not Detected (EPEC) (test code = 36589-8) Enterotoxigenic E. coli Not Detected Not Detected (ETEC) (test code = 00573-2) Shiga-like toxin-producing Not Detected Not Detected E. col (STEC) (test code = 75363-7) E. coli O157 (test code = Not Applicable Not Detected 84699-9) Shigella/Enteroinvasive E. Not Detected Not Detected coli (EIEC) (test code = 84932-3) Cryptosporidium (test code Not Detected Not Detected = 23116-1) Cyclospora cayetanensis Not Detected Not Detected (test code = 04911-4) Entamoeba histolytica Not Detected Not Detected (test code = 98016-7) Giardia lamblia (test code Not Detected Not Detected = 63203-8) Adenovirus F 40/41 (test Not Detected Not Detected code = 41488-7) Astrovirus (test code = Not Detected Not Detected 52865-7) Norovirus GI/GII (test Not Detected Not Detected code = 96600-5) Rotavirus A (test code = Not Detected Not Detected 54519-3) Sapovirus (I, II, IV and Not Detected Not Detected V) (test code = 73536-7) [facility] Test Item Value Reference Range Interpretation Comments Campylobacter (test code = Not Detected Not Detected 32824-9) C difficile DNA (GI Multi Refer to separate Panel) (test code = C. difficile DNA 42557-2) Assay for results Plesiomonas shigelloides Not Detected Not Detected (test code = 94743-8) Salmonella (test code = Not Detected Not Detected 93595-8) Vibrio (test code = Not Detected Not Detected 94310-8) Vibrio cholerae (test code Not Detected Not Detected = 69040-7) Yersinia enterocolitica Not Detected Not Detected (test code = 52002-4) Enteroaggregative E. coli Not Detected Not Detected (EAEC) (test code = 11529-1) Enteropathogenic E. coli Not Detected Not Detected (EPEC) (test code = 82077-7) Enterotoxigenic E. coli Not Detected Not Detected (ETEC) (test code = 18436-4) Shiga-like toxin-producing Not Detected Not Detected E. col (STEC) (test code = 40550-8) E. coli O157 (test code = Not Applicable Not Detected 83508-2) Shigella/Enteroinvasive E. Not Detected Not Detected coli (EIEC) (test code = 40953-4) Cryptosporidium (test code Not Detected Not Detected = 43933-1) Cyclospora cayetanensis Not Detected Not Detected (test code = 72833-4) Entamoeba histolytica Not Detected Not Detected (test code = 16913-6) Giardia lamblia (test code Not Detected Not Detected = 30417-6) Adenovirus F 40/41 (test Not Detected Not Detected code = 96310-2) Astrovirus (test code = Not Detected Not Detected 14253-8) Norovirus GI/GII (test Not Detected Not Detected code = 97423-1) Rotavirus A (test code = Not Detected Not Detected 01081-8) Sapovirus (I, II, IV and Not Detected Not Detected V) (test code = 94069-9) [facility] [id number] 13:31:20 Test Item Value Reference Range Interpretation Comments Ferritin Lvl (test code = 2276-4) 320 ng/mL 13-150 H Lab Interpretation (test code = Abnormal 28197-4) [facility] [id number] 13:31:20 Test Item Value Reference Range Interpretation Comments Ferritin Lvl (test code = 2276-4) 320 ng/mL 13-150 H Lab Interpretation (test code = Abnormal 96653-1) [facility] [id number] 13:31:20 Test Item Value Reference Range Interpretation Comments Ferritin Lvl (test code = 2276-4) 320 ng/mL 13-150 H Lab Interpretation (test code = Abnormal 09406-2) [facility] [id number] 13:31:20 Test Item Value Reference Range Interpretation Comments Ferritin Lvl (test code = 2276-4) 320 ng/mL 13-150 H Lab Interpretation (test code = Abnormal 22147-2) [facility] [id number] 13:31:20 Test Item Value Reference Range Interpretation Comments Ferritin Lvl (test code = 2276-4) 320 ng/mL 13-150 H Lab Interpretation (test code = Abnormal 74110-4) [facility] [id number] 13:31:20 Test Item Value Reference Range Interpretation Comments Ferritin Lvl (test code = 2276-4) 320 ng/mL 13-150 H Lab Interpretation (test code = Abnormal 77064-9) [facility] [id number] 13:31:20 Test Item Value Reference Range Interpretation Comments Ferritin Lvl (test code = 2276-4) 320 ng/mL 13-150 H Lab Interpretation (test code = Abnormal 16853-8) [facility] [id number] 13:25:21 Test Item Value Reference Range Interpretation Comments Transferrin (test code 205 mg/dL 200-360 = 3034-6) TIBC (test code = 287 See_Comment [Automate d message] 2500-7) The system Triplify generated this result transmitted ref erence range: 250 - 45 0 mcg/dL. The ref erence range was not u sed to interpret this result as normal/abnor mal. [facility] [id number] 13:25:21 Test Item Value Reference Range Interpretation Comments Transferrin (test code 205 mg/dL 200-360 = 3034-6) TIBC (test code = 287 See_Comment [Automate d message] 2500-7) The system [employer] generated this result transmitted ref erence range: 250 - 45 0 mcg/dL. The ref erence range was not u sed to interpret this result as normal/abnor mal. [facility] [id number] 13:25:21 Test Item Value Reference Range Interpretation Comments Transferrin (test code 205 mg/dL 200-360 = 3034-6) TIBC (test code = 287 See_Comment [Automate d message] 2500-7) The system [employer] generated this result transmitted ref erence range: 250 - 45 0 mcg/dL. The ref erence range was not u sed to interpret this result as normal/abnor mal. [facility] [id number] 13:25:21 Test Item Value Reference Range Interpretation Comments Transferrin (test code 205 mg/dL 200-360 = 3034-6) TIBC (test code = 287 See_Comment [Automate d message] 2500-7) The system [employer] generated this result transmitted ref erence range: 250 - 45 0 mcg/dL. The ref erence range was not u sed to interpret this result as normal/abnor mal. [facility] [id number] 13:25:21 Test Item Value Reference Range Interpretation Comments Transferrin (test code 205 mg/dL 200-360 = 3034-6) TIBC (test code = 287 See_Comment [Automate d message] 2500-7) The system [employer] generated this result transmitted ref erence range: 250 - 45 0 mcg/dL. The ref erence range was not u sed to interpret this result as normal/abnor mal. [facility] [id number] 13:25:21 Test Item Value Reference Range Interpretation Comments Transferrin (test code 205 mg/dL 200-360 = 3034-6) TIBC (test code = 287 See_Comment [Automate d message] 2500-7) The system [employer] generated this result transmitted ref erence range: 250 - 45 0 mcg/dL. The ref erence range was not u sed to interpret this result as normal/abnor mal. [facility] [id number] 13:25:21 Test Item Value Reference Range Interpretation Comments Transferrin (test code 205 mg/dL 200-360 = 3034-6) TIBC (test code = 287 See_Comment [Automate d message] 2500-7) The system [employer] generated this result transmitted ref erence range: 250 - 45 0 mcg/dL. The ref erence range was not u sed to interpret this result as normal/abnor mal. [facility]2023-04-09 13:25:20 Test Item Value Reference Range Interpretation Comments Iron (test code = 51 See_Comment [Automate d message] The [facility] system which ge nerated this result transmit kaylie reference range : 37 - 145 mcg/dL. The ref erence range was not used to interpret this result as normal/abnormal . [facility]2023-04-09 13:25:20 Test Item Value Reference Range Interpretation Comments Iron (test code = 51 See_Comment [Automate d message] The [facility] system which ge nerated this result transmit kaylie reference range : 37 - 145 mcg/dL. The ref erence range was not used to interpret this result as normal/abnormal . [facility]2023-04-09 13:25:20 Test Item Value Reference Range Interpretation Comments Iron (test code = 51 See_Comment [Automate d message] The 2498-4) system which ge nerated this result transmit kaylie reference range : 37 - 145 mcg/dL. The ref erence range was not used to interpret this result as normal/abnormal . [facility]2023-04-09 13:25:20 Test Item Value Reference Range Interpretation Comments Iron (test code = 51 See_Comment [Automate d message] The [facility]8-4) system which ge nerated this result transmit kaylie reference range : 37 - 145 mcg/dL. The ref erence range was not used to interpret this result as normal/abnormal . [facility]2023-04-09 13:25:20 Test Item Value Reference Range Interpretation Comments Iron (test code = 51 See_Comment [Automate d message] The [facility]8-) system which ge nerated this result transmit kaylie reference range : 37 - 145 mcg/dL. The ref erence range was not used to interpret this result as normal/abnormal . [facility] [id number] 13:25:20 Test Item Value Reference Range Interpretation Comments Iron (test code = 51 See_Comment [Automate d message] The [facility]-) system which ge nerated this result transmit kaylie reference range : 37 - 145 mcg/dL. The ref erence range was not used to interpret this result as normal/abnormal . [facility]2023-04-09 13:25:20 Test Item Value Reference Range Interpretation Comments Iron (test code = 51 See_Comment [Automate d message] The [facility]-) system which ge nerated this result transmit kaylie reference range : 37 - 145 mcg/dL. The ref erence range was not used to interpret this result as normal/abnormal . [facility] [id number] 13:23:33 Test Item Value Reference Range Interpretation Comments Chol (test code = 137 mg/dL <=199 ATP III Cl assification 2092-12) of Total Choles terol Primary Target of Therapy (in mg/dL):<200 Rruzhxjdq625-94 9 Borderline high >=240 High Trig (test code = 184 mg/dL <=149 H ATP III Cl assification 2571-8) of Serum Trigly cerides Primary Target of Therapy (in mg/dL):<150 Nwcbte529-422 Borderline high 200-499 High>=500 Very highNon-fasting triglycerides > 200 mg/dL may be fo llowed up with a fasti ng Lipid Panel. Calculated LDL- C may be falsely decr eased when non-fastin g triglycerides > 200 mg/dL. HDL (test code = 27 mg/dL >=40 L 2085-07) LDL (test code = 73 mg/dL <=100 ATP III Cla ssification 49797-7) of LDL Choleste rol Primary Target of Therapy (in mg/dL):<100 Eiqemqv017-647 Near optimal/above vagptkj164-018 Borderline high 160-189 High>=190 Very high VLDL (test code = 37 mg/dL 51289-1) Lab Interpretation Abnormal (test code = 48891-8) [facility] [id number] 13:23:33 Test Item Value Reference Range Interpretation Comments Chol (test code = 137 mg/dL <=199 ATP III Cl assification 2092-12) of Total Choles terol Primary Target of Therapy (in mg/dL):<200 Xcdlofjpu094-09 9 Borderline high >=240 High Trig (test code = 184 mg/dL <=149 H ATP III Cl assification 2571-8) of Serum Trigly cerides Primary Target of Therapy (in mg/dL):<150 Evlnvy161-127 Borderline high 200-499 High>=500 Very highNon-fasting triglycerides > 200 mg/dL may be fo llowed up with a fasti ng Lipid Panel. Calculated LDL- C may be falsely decr eased when non-fastin g triglycerides > 200 mg/dL. HDL (test code = 27 mg/dL >=40 L 2085-07) LDL (test code = 73 mg/dL <=100 ATP III Cla ssification 83685-0) of LDL Choleste rol Primary Target of Therapy (in mg/dL):<100 Dpzdqgw200-173 Near optimal/above -464 Borderline high 160-189 High>=190 Very high VLDL (test code = 37 mg/dL 63019-1) Lab Interpretation Abnormal (test code = 59339-8) [facility] [id number] 13:23:33 Test Item Value Reference Range Interpretation Comments Chol (test code = 137 mg/dL <=199 ATP III Cl assification 2092-12) of Total Choles terol Primary Target of Therapy (in mg/dL):<200 Rcdzmpmyp462-71 9 Borderline high >=240 High Trig (test code = 184 mg/dL <=149 H ATP III Cl assification 2571-8) of Serum Trigly cerides Primary Target of Therapy (in mg/dL):<150 Ckjlsg810-253 Borderline high 200-499 High>=500 Very highNon-fasting triglycerides > 200 mg/dL may be fo llowed up with a fasti ng Lipid Panel. Calculated LDL- C may be falsely decr eased when non-fastin g triglycerides > 200 mg/dL. HDL (test code = 27 mg/dL >=40 L 9) LDL (test code = 73 mg/dL <=100 ATP III Cla ssification 35179-9) of LDL Choleste rol Primary Target of Therapy (in mg/dL):<100 Gxpwnuv977-173 Near optimal/above bznbnse316-505 Borderline high 160-189 High>=190 Very high VLDL (test code = 37 mg/dL 70209-3) Lab Interpretation Abnormal (test code = 63765-1) [facility] [id number] 13:23:33 Test Item Value Reference Range Interpretation Comments Chol (test code = 137 mg/dL <=199 ATP III Cl assification 3-3) of Total Choles terol Primary Target of Therapy (in mg/dL):<200 Bshemwhur821-60 9 Borderline high >=240 High Trig (test code = 184 mg/dL <=149 H ATP III Cl assification 2571-8) of Serum Trigly cerides Primary Target of Therapy (in mg/dL):<150 Auqenp661-581 Borderline high 200-499 High>=500 Very highNon-fasting triglycerides > 200 mg/dL may be fo llowed up with a fasti ng Lipid Panel. Calculated LDL- C may be falsely decr eased when non-fastin g triglycerides > 200 mg/dL. HDL (test code = 27 mg/dL >=40 L 2085-07) LDL (test code = 73 mg/dL <=100 ATP III Cla ssification 11873-1) of LDL Choleste rol Primary Target of Therapy (in mg/dL):<100 Foumnvy075-025 Near optimal/above iezrqqb169-309 Borderline high 160-189 High>=190 Very high VLDL (test code = 37 mg/dL 33467-9) Lab Interpretation Abnormal (test code = 36870-0) [facility] [id number] 13:23:33 Test Item Value Reference Range Interpretation Comments Chol (test code = 137 mg/dL <=199 ATP III Cl assification 2092-12) of Total Choles terol Primary Target of Therapy (in mg/dL):<200 Tnwmrhfsk746-40 9 Borderline high >=240 High Trig (test code = 184 mg/dL <=149 H ATP III Cl assification 2571-8) of Serum Trigly cerides Primary Target of Therapy (in mg/dL):<150 Epphla441-051 Borderline high 200-499 High>=500 Very highNon-fasting triglycerides > 200 mg/dL may be fo llowed up with a fasti ng Lipid Panel. Calculated LDL- C may be falsely decr eased when non-fastin g triglycerides > 200 mg/dL. HDL (test code = 27 mg/dL >=40 L 2085-07) LDL (test code = 73 mg/dL <=100 ATP III Cla ssification 43020-1) of LDL Choleste rol Primary Target of Therapy (in mg/dL):<100 Zjyudju643-311 Near optimal/above goocxeu279-284 Borderline high 160-189 High>=190 Very high VLDL (test code = 37 mg/dL 55886-6) Lab Interpretation Abnormal (test code = 47678-6) [facility] [id number] 13:23:33 Test Item Value Reference Range Interpretation Comments Chol (test code = 137 mg/dL <=199 ATP III Cl assification 2092-12) of Total Choles terol Primary Target of Therapy (in mg/dL):<200 Hhyizqpgj029-78 9 Borderline high >=240 High Trig (test code = 184 mg/dL <=149 H ATP III Cl assification 2571-8) of Serum Trigly cerides Primary Target of Therapy (in mg/dL):<150 Dgmsub570-313 Borderline high 200-499 High>=500 Very highNon-fasting triglycerides > 200 mg/dL may be fo llowed up with a fasti ng Lipid Panel. Calculated LDL- C may be falsely decr eased when non-fastin g triglycerides > 200 mg/dL. HDL (test code = 27 mg/dL >=40 L 2085-07) LDL (test code = 73 mg/dL <=100 ATP III Cla ssification 04797-0) of LDL Choleste rol Primary Target of Therapy (in mg/dL):<100 Elhafhs638-580 Near optimal/above -574 Borderline high 160-189 High>=190 Very high VLDL (test code = 37 mg/dL 30014-7) Lab Interpretation Abnormal (test code = 12702-2) [facility] [id number] 13:23:33 Test Item Value Reference Range Interpretation Comments Chol (test code = 137 mg/dL <=199 ATP III Cl assification 3-3) of Total Choles terol Primary Target of Therapy (in mg/dL):<200 Nxyxosyjp990-23 9 Borderline high >=240 High Trig (test code = 184 mg/dL <=149 H ATP III Cl assification 2571-8) of Serum Trigly cerides Primary Target of Therapy (in mg/dL):<150 Xnpeeq544-690 Borderline high 200-499 High>=500 Very highNon-fasting triglycerides > 200 mg/dL may be fo llowed up with a fasti ng Lipid Panel. Calculated LDL- C may be falsely decr eased when non-fastin g triglycerides > 200 mg/dL. HDL (test code = 27 mg/dL >=40 L 2085-07) LDL (test code = 73 mg/dL <=100 ATP III Cla ssification 88960-4) of LDL Choleste rol Primary Target of Therapy (in mg/dL):<100 Ykliamo259-231 Near optimal/above mboaxai595-168 Borderline high 160-189 High>=190 Very high VLDL (test code = 37 mg/dL 09229-0) Lab Interpretation Abnormal (test code = 86616-4) [facility] [id number] 12:22:20 Test Item Value Reference Range Interpretation Comments A1C (test code = 4548-4) 10.2 % 4.3-5.6 H HbA 1c values >=6.5% are diagnostic of diabetes mellitus.Diagno sis should be confi rmed by repeat testing.Therape utic Action suggeste d: >8.0% HbA1c; Go al oftherapy: <7.0 % HbA1c Lab Interpretation (test Abnormal code = 28642-9) [facility] [id number] 12:22:20 Test Item Value Reference Range Interpretation Comments A1C (test code = 4548-4) 10.2 % 4.3-5.6 H HbA 1c values >=6.5% are diagnostic of diabetes mellitus.Diagno sis should be confi rmed by repeat testing.Therape utic Action suggeste d: >8.0% HbA1c; Go al oftherapy: <7.0 % HbA1c Lab Interpretation (test Abnormal code = 21760-9) [facility] [id number] 12:22:20 Test Item Value Reference Range Interpretation Comments A1C (test code = 4548-4) 10.2 % 4.3-5.6 H HbA 1c values >=6.5% are diagnostic of diabetes mellitus.Diagno sis should be confi rmed by repeat testing.Therape utic Action suggeste d: >8.0% HbA1c; Go al oftherapy: <7.0 % HbA1c Lab Interpretation (test Abnormal code = 77050-8) [facility] [id number] 12:22:20 Test Item Value Reference Range Interpretation Comments A1C (test code = 4548-4) 10.2 % 4.3-5.6 H HbA 1c values >=6.5% are diagnostic of diabetes mellitus.Diagno sis should be confi rmed by repeat testing.Therape utic Action suggeste d: >8.0% HbA1c; Go al oftherapy: <7.0 % HbA1c Lab Interpretation (test Abnormal code = 98735-2) [id number] 12:22:20 Test Item Value Reference Range Interpretation Comments A1C (test code = 4548-4) 10.2 % 4.3-5.6 H HbA 1c values >=6.5% are diagnostic of diabetes mellitus.Diagno sis should be confi rmed by repeat testing.Therape utic Action suggeste d: >8.0% HbA1c; Go al oftherapy: <7.0 % HbA1c Lab Interpretation (test Abnormal code = 13399-0) [facility] [id number] 12:22:20 Test Item Value Reference Range Interpretation Comments A1C (test code = 4548-4) 10.2 % 4.3-5.6 H HbA 1c values >=6.5% are diagnostic of diabetes mellitus.Diagno sis should be confi rmed by repeat testing.Therape utic Action suggeste d: >8.0% HbA1c; Go al oftherapy: <7.0 % HbA1c Lab Interpretation (test Abnormal code = 47751-3) [facility] [id number] 12:22:20 Test Item Value Reference Range Interpretation Comments A1C (test code = 4548-4) 10.2 % 4.3-5.6 H HbA 1c values >=6.5% are diagnostic of diabetes mellitus.Diagno sis should be confi rmed by repeat testing.Therape utic Action suggeste d: >8.0% HbA1c; Go al oftherapy: <7.0 % HbA1c Lab Interpretation (test Abnormal code = 74314-7) [facility] 17:26:26 Test Item Value Reference Range Interpretation Comments CRP (test code = 65.62 mg/[place] [address]-2) CRP assay are a s follows: Reference range s when used to assess cardi ac risk: <1.00 mg/L Low cardiovascular risk 1.00-3.00 mg/L Average cardiovascular risk >3.00 mg/L High cardi ovascular risk.Reference ranges when used to assess inflammatory re sponses: Less than or eq ual to 10.00 mg/L. [facility] 17:26:26 Test Item Value Reference Range Interpretation Comments CRP (test code = 65.62 mg/[place] [address]-6) CRP assay are a s follows: Reference range s when used to assess cardi ac risk: <1.00 mg/L Low cardiovascular risk 1.00-3.00 mg/L Average cardiovascular risk >3.00 mg/L High cardi ovascular risk.Reference ranges when used to assess inflammatory re sponses: Less than or eq ual to 10.00 mg/L. [facility] 17:26:26 Test Item Value Reference Range Interpretation Comments CRP (test code = 65.62 mg/[place] [address]-7) CRP assay are a s follows: Reference range s when used to assess cardi ac risk: <1.00 mg/L Low cardiovascular risk 1.00-3.00 mg/L Average cardiovascular risk >3.00 mg/L High cardi ovascular risk.Reference ranges when used to assess inflammatory re sponses: Less than or eq ual to 10.00 mg/L. [facility] Test Item Value Reference Range Interpretation Comments CRP (test code = 65.62 mg/[place] [address]-2) CRP assay are a s follows: Reference range s when used to assess cardi ac risk: <1.00 mg/L Low cardiovascular risk 1.00-3.00 mg/L Average cardiovascular risk >3.00 mg/L High cardi ovascular risk.Reference ranges when used to assess inflammatory re sponses: Less than or eq ual to 10.00 mg/L. [place] 79328023-04-08 17:26:26 Test Item Value Reference Range Interpretation Comments CRP (test code = 65.62 mg/[place] [address]-2) CRP assay are a s follows: Reference range s when used to assess cardi ac risk: <1.00 mg/L Low cardiovascular risk 1.00-3.00 mg/L Average cardiovascular risk >3.00 mg/L High cardi ovascular risk.Reference ranges when used to assess inflammatory re sponses: Less than or eq ual to 10.00 mg/L. [facility] 17:26:26 Test Item Value Reference Range Interpretation Comments CRP (test code = 65.62 mg/[place] [address]-3) CRP assay are a s follows: Reference range s when used to assess cardi ac risk: <1.00 mg/L Low cardiovascular risk 1.00-3.00 mg/L Average cardiovascular risk >3.00 mg/L High cardi ovascular risk.Reference ranges when used to assess inflammatory re sponses: Less than or eq ual to 10.00 mg/L. [facility] 17:26:26 Test Item Value Reference Range Interpretation Comments CRP (test code = 65.62 mg/[place] [address]-4) CRP assay are a s follows: Reference range s when used to assess cardi ac risk: <1.00 mg/L Low cardiovascular risk 1.00-3.00 mg/L Average cardiovascular risk >3.00 mg/L High cardi ovascular risk.Reference ranges when used to assess inflammatory re sponses: Less than or eq ual to 10.00 mg/L. [facility] 17:14:43 Test Item Value Reference Range Interpretation Comments NT ProBNP (test code = 18335-4) 83 pg/mL <=125 [facility]23-[facility] 17:14:43 Test Item Value Reference Range Interpretation Comments NT ProBNP (test code = 39215-0) 83 pg/mL <=125 [facility]23-[facility]-06 17:14:43 Test Item Value Reference Range Interpretation Comments NT ProBNP (test code = 57907-7) 83 pg/mL <=125 [facility]23-[facility]-06 17:14:43 Test Item Value Reference Range Interpretation Comments NT ProBNP (test code = 14522-3) 83 pg/mL <=125 [facility]-06 17:14:43 Test Item Value Reference Range Interpretation Comments NT ProBNP (test code = 08573-7) 83 pg/mL <=125 [facility]23-[facility]-06 17:14:43 Test Item Value Reference Range Interpretation Comments NT ProBNP (test code = 24202-0) 83 pg/mL <=125 [facility]23-02-06 17:14:43 Test Item Value Reference Range Interpretation Comments NT ProBNP (test code = 25578-7) 83 pg/mL <=125 [facility] 06:39:52 Test Item Value Reference Range Interpretation Comments Troponin T (test code 10 ng/L <=19 < 19 n g/L Suggest retest = 78367-9) at 3 to 6 hours later to [...] interfere nces and falsely low res ults. [facility] 06:39:52 Test Item Value Reference Range Interpretation Comments Troponin T (test code 10 ng/L <=19 < 19 n g/L Suggest retest = 89075-1) at 3 to 6 hours later to [...] interfere nces and falsely low res ults. [facility] 06:39:52 Test Item Value Reference Range Interpretation Comments Troponin T (test code 10 ng/L <=19 < 19 n g/L Suggest retest = 16326-0) at 3 to 6 hours later to [...] interfere nces and falsely low res ults. [facility] 06:39:52 Test Item Value Reference Range Interpretation Comments Troponin T (test code 10 ng/L <=19 < 19 n g/L Suggest retest = 66454-2) at 3 to 6 hours later to [...] interfere nces and falsely low res ults. [facility]-06 06:39:52 Test Item Value Reference Range Interpretation Comments Troponin T (test code 10 ng/L <=19 < 19 n g/L Suggest retest = 51361-1) at 3 to 6 hours later to [...] interfere nces and falsely low res ults. [facility] 06:39:52 Test Item Value Reference Range Interpretation Comments Troponin T (test code 10 ng/L <=19 < 19 n g/L Suggest retest = 04708-3) at 3 to 6 hours later to [...] interfere nces and falsely low res ults. [facility]-06 06:39:52 Test Item Value Reference Range Interpretation Comments Troponin T (test code 10 ng/L <=19 < 19 n g/L Suggest retest = 46538-3) at 3 to 6 hours later to [...] interfere nces and falsely low res ults. [facility] 2023-02-06 05:50:41 Test Item Value Reference Range Interpretation Comments UA Color (test code = Cameron Straw-Yellow A 57920-7) UA Appear (test code = Cloudy Clear A 48661-7) UA Glucose (test code 500 mg/dL NEG [...] = NOT SEEN See_Comment Some rep orting 21864-9) parameters with in the Urinalysis test have changed due to the implementation of new instrumentation in the [facility] sens[place] vity of measurement. Urinalysis resu lts reported by the [facility] C enters using existing instrumentation , as well as Urinaly sis testing perform ed manually or by backup methodology at the [facility] [place] l remain relative ly unchanged. New reporting asha eters and units will not be reported for al campuses. [Auto mated message] The sy stem which generated this result transmit kaylie reference range : 0 - 2 /HPF. The refer ence range was not u sed to interpret this result as normal/abnor mal. UA RBC (test code = 13 See_Comment H [Automa kaylie message] 52208-6) The system Triplify generated this result transmitted ref erence range: 0 - 2 /H PF. The reference range was not used to int erpret this result as normal/abnormal . UA Mucous (test code = NOT SEEN Not Seen-Trace 59184-8) /HPF UA Bacteria (test code NOT SEEN NOT SEEN /HPF = 48575-1) UA Squam Epi (test OCC None-Occasional code = 14267-8) /HPF Lab Interpretation Abnormal (test code = 41434-7) [facility] 2023-02-06 05:50:41 Test Item Value Reference Range Interpretation Comments UA Color (test code = Cameron Straw-Yellow A 72249-4) UA Appear (test code = Cloudy Clear A 45014-4) UA Glucose (test code 500 mg/dL NEG [...] = NOT SEEN See_Comment Some rep orting 06181-6) parameters with in the Urinalysis test have changed due to the implementation of new instrumentation in the [facility], [facility] sensiti vity of measurement. Urinalysis resu lts reported by the [facility] C enters using existing instrumentation , as well as Urinaly sis testing perform ed manually or by backup methodology at the [facility] [place] l remain relative ly unchanged. New reporting asha eters and units will not be reported for [facility]. [Auto mated message] The sy stem which generated this result transmit kaylie reference range : 0 - 2 /HPF. The refer ence range was not u sed to interpret this result as normal/abnor mal. UA RBC (test code = 13 See_Comment H [Automa kaylie message] 57239-8) The system [employer]plify generated this result transmitted ref erence range: 0 - 2 /H PF. The reference range was not used to int erpret this result as normal/abnormal . UA Mucous (test code = NOT SEEN Not Seen-Trace 31718-8) /HPF UA Bacteria (test code NOT SEEN NOT SEEN /HPF = 77315-7) UA Squam Epi (test OCC None-Occasional code = 50616-3) /HPF Lab Interpretation Abnormal (test code = 63313-0) [facility] Microscopic 2023-02-06 05:50:41 Test Item Value Reference Range Interpretation Comments UA Color (test code = Cameron Straw-Yellow A 99975-0) UA Appear (test code = Cloudy Clear A 34735-5) UA Glucose (test code 500 mg/dL NEG [...] = NOT SEEN See_Comment Some rep orting 60921-2) parameters with in the Urinalysis test have changed due to the implementation of new instrumentation in the [facility], [facility] greater sensiti vity of measurement. Urinalysis resu [facility]ts [facility] using existing instrumentation , as well as Urinaly sis testing perform ed manually or by backup methodology at the [facility] [place] remain relative ly unchanged. New reporting asha eters and units will not be reported for [facility]. [Auto mated message] The sy stem which generated this result transmit kaylie reference range : 0 - 2 /HPF. The refer ence range was not u sed to interpret this result as normal/abnor mal. UA RBC (test code = 13 See_Comment H [Automa kaylie message] 66046-3) The system Triplify generated this result transmitted ref erence range: 0 - 2 /H PF. The reference range was not used to int erpret this result as normal/abnormal . UA Mucous (test code = NOT SEEN Not Seen-Trace 74761-8) /HPF UA Bacteria (test code NOT SEEN NOT SEEN /HPF = 95343-4) UA Squam Epi (test OCC None-Occasional code = 85102-6) /HPF Lab Interpretation Abnormal (test code = 79322-0) [facility] with Microscopic 2023-02-06 05:50:41 Test Item Value Reference Range Interpretation Comments UA Color (test code = Cameron Straw-Yellow A 08081-4) UA Appear (test code = Cloudy Clear A 15633-4) UA Glucose (test code 500 mg/dL NEG [...] = NOT SEEN See_Comment Some rep orting 94892-5) parameters with in the Urinalysis test have changed due to the implementation of new instrumentation in the [facility], [facility] greater sensiti vity of measurement. Urinalysis resu lts reported by the [facility] C enters using existing instrumentation , as well as Urinaly sis testing perform ed manually or by backup methodology at the [facility] l remain relative ly unchanged. New reporting asha eters and units will not be reported for [facility]. [Auto mated message] The sy stem which generated this result transmit kaylie reference range : 0 - 2 /HPF. The refer ence range was not u sed to interpret this result as normal/abnor mal. UA RBC (test code = 13 See_Comment H [Automa kalyie message] 64860-4) The system Triplify generated this result transmitted ref erence range: 0 - 2 /H PF. The reference range was not used to int erpret this result as normal/abnormal . UA Mucous (test code = NOT SEEN Not Seen-Trace 84722-4) /HPF UA Bacteria (test code NOT SEEN NOT SEEN /HPF = 43990-5) UA Squam Epi (test OCC None-Occasional code = 04473-6) /HPF Lab Interpretation Abnormal (test code = 66031-7) [facility] with Microscopic 2023-02-06 05:50:41 Test Item Value Reference Range Interpretation Comments UA Color (test code = Cameron Straw-Yellow A 79534-0) UA Appear (test code = Cloudy Clear A 53830-1) UA Glucose (test code 500 mg/dL NEG [...] = NOT SEEN See_Comment Some rep orting 93982-5) parameters with in the Urinalysis test have changed due to the implementation of new instrumentation in the [facility], [facility] greater sensiti vity of measurement. Urinalysis resu lts reported by the [facility] C enters using existing instrumentation , as well as Urinaly sis testing perform ed manually or by backup methodology at the [facility] [place] l remain relative ly unchanged. New [...] = 13 See_Comment H [Automa kaylie message] 06140-8) The system [employer] generated this result transmitted ref erence range: 0 - 2 /H PF. The reference range was not used to int erpret this result as normal/abnormal . UA Mucous (test code = NOT SEEN Not Seen-Trace 30236-8) /HPF UA Bacteria (test code NOT SEEN NOT SEEN /HPF = 20591-2) UA Squam Epi (test OCC None-Occasional code = 91306-2) /HPF Lab Interpretation Abnormal (test code = 22140-2) [facility] with Microscopic 2023-02-06 05:50:41 Test Item Value Reference Range Interpretation Comments UA Color (test code = Cameron Straw-Yellow A 97830-8) UA Appear (test code = Cloudy Clear A 64711-3) UA Glucose (test code 500 mg/dL NEG [...] = NOT SEEN See_Comment Some rep orting 90424-1) parameters with in the Urinalysis test have changed due to the implementation of new instrumentation in the [facility], [facility] greater sensiti vity of measurement. Urinalysis resu lts reported by the [facility] using existing instrumentation , as well as Urinaly sis testing perform ed manually or by backup methodology at the [facility] [place] l remain relative ly unchanged. New reporting saha eters and units will not be reported for al l campuses. [Auto mated message] The sy stem which generated this result transmit kaylie reference range : 0 - 2 /HPF. The refer ence range was not u sed to interpret this result as normal/abnor mal. UA RBC (test code = 13 See_Comment H [Automa kaylie message] 62962-6) The system [employer] generated this result transmitted ref erence range: 0 - 2 /H PF. The reference range was not used to int erpret this result as normal/abnormal . UA Mucous (test code = NOT SEEN Not Seen-Trace 45514-2) /HPF UA Bacteria (test code NOT SEEN NOT SEEN /HPF = 46699-3) UA Squam Epi (test OCC None-Occasional code = 93521-8) /HPF Lab Interpretation Abnormal (test code = 07327-1) [facility] with Microscopic 2023-02-06 05:50:41 Test Item Value Reference Range Interpretation Comments UA Color (test code = Cameron Straw-Yellow A 99319-0) UA Appear (test code = Cloudy Clear A 47328-8) UA Glucose (test code 500 mg/dL NEG [...] = NOT SEEN See_Comment Some rep orting 39961-8) parameters with in the Urinalysis test have changed due to the implementation of new instrumentation in the [facility], [facility] greater sensiti vity of measurement. Urinalysis resu lts reported by the [facility] using existing instrumentation , as well as Urinaly sis testing perform ed manually or by backup methodology at the [facility] [place] l remain relative ly unchanged. New [...] = 13 See_Comment H [Automa kaylie message] 56079-2) The system [employer] generated this result transmitted ref erence range: 0 - 2 /H PF. The reference range was not used to int erpret this result as normal/abnormal . UA Mucous (test code = NOT SEEN Not Seen-Trace 59144-5) /HPF UA Bacteria (test code NOT SEEN NOT SEEN /HPF = 21552-9) UA Squam Epi (test OCC None-Occasional code = 40781-5) /HPF Lab Interpretation Abnormal (test code = 44478-1) [facility] Test Item Value Reference Range Interpretation Comments aPTT (test code = 28.5 See_Comment [Automate d message] The 37312-2) system which ge nerated this result transmit kaylie reference range : 22.8 - 34.2 second(s). The reference range was not used to interpr et this result as diane l/abnormal. [facility] 02:32:47 Test Item Value Reference Range Interpretation Comments aPTT (test code = 28.5 See_Comment [Automate d message] The 88452-5) system which ge nerated this result transmit kaylie reference range : 22.8 - 34.2 second(s). The reference range was not used to interpr et this result as diane l/abnormal. [facility] 02:32:47 Test Item Value Reference Range Interpretation Comments aPTT (test code = 28.5 See_Comment [Automate d message] The 52639-3) system which ge nerated this result transmit kaylie reference range : 22.8 - 34.2 second(s). The reference range was not used to interpr et this result as diane l/abnormal. [facility] 02:32:47 Test Item Value Reference Range Interpretation Comments aPTT (test code = 28.5 See_Comment [Automate d message] The 00858-2) system which ge nerated this result transmit kaylie reference range : 22.8 - 34.2 second(s). The reference range was not used to interpr et this result as diane l/abnormal. [facility] 02:32:47 Test Item Value Reference Range Interpretation Comments aPTT (test code = 28.5 See_Comment [Automate d message] The 50101-9) system which ge nerated this result transmit kaylie reference range : 22.8 - 34.2 second(s). The reference range was not used to interpr et this result as diane l/abnormal. [facility] 02:32:47 Test Item Value Reference Range Interpretation Comments aPTT (test code = 28.5 See_Comment [Automate d message] The 21557-5) system which ge nerated this result transmit kaylie reference range : 22.8 - 34.2 second(s). The reference range was not used to interpr et this result as diane l/abnormal. [facility] 02:32:47 Test Item Value Reference Range Interpretation Comments aPTT (test code = 28.5 See_Comment [Automate d message] The 76764-5) system which ge nerated this result transmit kaylie reference range : 22.8 - 34.2 second(s). The reference range was not used to interpr et this result as diane l/abnormal. [facility] CenterProthrombin Time with [id number] 02:32:46 Test Item Value Reference Range Interpretation Comments PT (test code = 5902-2) 14.7 See_Comment H [Au tomated message] The system Triplify generated this result transmitted ref erence range: 11.9 - 1 4.1 second(s). The reference range was not used to int erpret this result as normal/abnormal . INR (test code = 6301-6) 1.16 0.89-1.10 H Lab Interpretation (test Abnormal code = 47900-5) [facility]th[facility] with [id number] 02:32:46 Test Item Value Reference Range Interpretation Comments PT (test code = 5902-2) 14.7 See_Comment H [Au tomated message] The system Triplify generated this result transmitted ref erence range: 11.9 - 1 4.1 second(s). The reference range was not used to int erpret this result as normal/abnormal . INR (test code = 6301-6) 1.16 0.89-1.10 H Lab Interpretation (test Abnormal code = 01519-4) [facility] with [id number] 02:32:46 Test Item Value Reference Range Interpretation Comments PT (test code = 5902-2) 14.7 See_Comment H [Au tomated message] The system Triplify generated this result transmitted ref erence range: 11.9 - 1 4.1 second(s). The reference range was not used to int erpret this result as normal/abnormal . INR (test code = 6301-6) 1.16 0.89-1.10 H Lab Interpretation (test Abnormal code = 41288-6) [facility] with [id number] 02:32:46 Test Item Value Reference Range Interpretation Comments PT (test code = 5902-2) 14.7 See_Comment H [Au tomated message] The system Triplify generated this result transmitted ref erence range: 11.9 - 1 4.1 second(s). The reference range was not used to int erpret this result as normal/abnormal . INR (test code = 6301-6) 1.16 0.89-1.10 H Lab Interpretation (test Abnormal code = 65442-4) [facility] with [id number] 02:32:46 Test Item Value Reference Range Interpretation Comments PT (test code = 5902-2) 14.7 See_Comment H [Au tomated message] The system Tri[employer] generated this result transmitted ref erence range: 11.9 - 1 4.1 second(s). The reference range was not used to int erpret this result as normal/abnormal . INR (test code = 6301-6) 1.16 0.89-1.10 H Lab Interpretation (test Abnormal code = 38867-7) [facility] with [id number] 02:32:46 Test Item Value Reference Range Interpretation Comments PT (test code = 5902-2) 14.7 See_Comment H [Au tomated message] The system Triplify generated this result transmitted ref erence range: 11.9 - 1 4.1 second(s). The reference range was not used to int erpret this result as normal/abnormal . INR (test code = 6301-6) 1.16 0.89-1.10 H Lab Interpretation (test Abnormal code = 92433-0) [facility] with [id number] 02:32:46 Test Item Value Reference Range Interpretation Comments PT (test code = 5902-2) 14.7 See_Comment H [Au tomated message] The system Triplify generated this result transmitted ref erence range: 11.9 - 1 4.1 second(s). The reference range was not used to int erpret this result as normal/abnormal . INR (test code = 6301-6) 1.16 0.89-1.10 H Lab Interpretation (test Abnormal code = 63036-9) [facility] CenterD [id number] 02:32:45 Test Item Value Reference Range Interpretation Comments D-Dimer (test code = 3.04 See_Comment H [place] [address]-0) exclusion of ve nous thromboembolism is <0.51 mcg/mL FEUs (fi brinogen equivalent unit s). [Automated mess age] The system which ge nerated this result tra nsmitted reference range : 0.10 - 0.50 mcg/ml FEU . The reference range was not used to interpr et this result as normal/abnormal . Lab Interpretation Abnormal (test code = 22933-6) [facility] Fwkas7680-02-25 02:32:45 Test Item Value Reference Range Interpretation Comments D-Dimer (test code = 3.04 See_Comment [place] [address]-4) exclusion of ve nous thromboembolism is <0.51 mcg/mL FEUs (fi brinogen equivalent unit s). [Automated mess age] The system which ge nerated this result tra nsmitted reference range : 0.10 - 0.50 mcg/ml FEU . The reference range was not used to interpr et this result as normal/abnormal . Lab Interpretation Abnormal (test code = 40569-9) [facility] [id number] 02:32:45 Test Item Value Reference Range Interpretation Comments D-Dimer (test code = 3.04 See_Comment H [place] [address]-9) exclusion of ve nous thromboembolism is <0.51 mcg/mL FEUs (fi brinogen equivalent unit s). [Automated mess age] The system which ge nerated this result tra nsmitted reference range : 0.10 - 0.50 mcg/ml FEU . The reference range was not used to interpr et this result as normal/abnormal . Lab Interpretation Abnormal (test code = 97248-9) [facility] [id number] 02:32:45 Test Item Value Reference Range Interpretation Comments D-Dimer (test code = 3.04 See_Comment H [place] [address]-2) exclusion of ve nous thromboembolism is <0.51 mcg/mL FEUs (fi brinogen equivalent unit s). [Automated mess age] The system which ge nerated this result tra nsmitted reference range : 0.10 - 0.50 mcg/ml FEU . The reference range was not used to interpr et this result as normal/abnormal . Lab Interpretation Abnormal (test code = 32831-8) [facility] [id number] 02:32:45 Test Item Value Reference Range Interpretation Comments D-Dimer (test code = 3.04 See_Comment H [place] [address]-9) exclusion of ve nous thromboembolism is <0.51 mcg/mL FEUs (fi brinogen equivalent unit s). [Automated mess age] The system which ge nerated this result tra nsmitted reference range : 0.10 - 0.50 mcg/ml FEU . The reference range was not used to interpr et this result as normal/abnormal . Lab Interpretation Abnormal (test code = 96717-9) [facility] [id number] 02:32:45 Test Item Value Reference Range Interpretation Comments D-Dimer (test code = 3.04 See_Comment H [place] [address]-4) exclusion of ve nous thromboembolism is <0.51 mcg/mL FEUs (fi brinogen equivalent unit s). [Automated mess age] The system which ge nerated this result tra nsmitted reference range : 0.10 - 0.50 mcg/ml FEU . The reference range was not used to interpr et this result as normal/abnormal . Lab Interpretation Abnormal (test code = 61147-4) [facility] [id number] 02:32:45 Test Item Value Reference Range Interpretation Comments D-Dimer (test code = 3.04 See_Comment H [place] [address]-4) exclusion of ve nous thromboembolism is <0.51 mcg/mL FEUs (fi brinogen equivalent unit s). [Automated mess age] The system which ge nerated this result tra nsmitted reference range : 0.10 - 0.50 mcg/ml FEU . The reference range was not used to interpr et this result as normal/abnormal . Lab Interpretation Abnormal (test code = 67715-5) [facility] [id number] 01:31:58 Test Item Value Reference Range Interpretation Comments V Lactate (test code = 2519-7) 1.2 mmol/L 0.5-1.6 [facility] Sfhlzfz9817-80-12 01:31:58 Test Item Value Reference Range Interpretation Comments V Lactate (test code = 2519-7) 1.2 mmol/L 0.5-1.6 [facility] Gdohraa7833-63-25 01:31:58 Test Item Value Reference Range Interpretation Comments V Lactate (test code = 2519-7) 1.2 mmol/L 0.5-1.6 [facility] Tpxlwpp2829-27-95 01:31:58 Test Item Value Reference Range Interpretation Comments V Lactate (test code = 2519-7) 1.2 mmol/L 0.5-1.6 [facility] [id number] 01:31:58 Test Item Value Reference Range Interpretation Comments V Lactate (test code = 2519-7) 1.2 mmol/L 0.5-1.6 [facility] [id number] 01:31:58 Test Item Value Reference Range Interpretation Comments V Lactate (test code = 2519-7) 1.2 mmol/L 0.5-1.6 [facility] [id number] 01:31:58 Test Item Value Reference Range Interpretation Comments V Lactate (test code = 2519-7) 1.2 mmol/L 0.5-1.6 [facility] ([facility]-2)Zuozrqsiertu-[id number] 23:01:01 Test Item Value Reference Range Interpretation Comments COVID19 Not Detected Not Detected (SARS-CoV-2) (test code = 20047-1) COVID19 SARS Inpatient Indication (test Admission code = 71039) Covid 19 Comment See Note The ruby S ARS-CoV-2 (test code = [place] [address]) use on the jeanne s Chastity System [...] sheet for patie nts provided by the second grade teacher ([employer]) can be rev iewed at: https://www.fda .gov/m edia/721956/otf nload. A fact sheet fo Health Care pro viders is provided by the second grade teacher ([employer]) and can be reviewed at: https://www.fda .gov/m edia/155124/otf nload Results must be interpreted wit hin [...] high-comple xity tests. The Microbiology Laboratory at [facility], CLIA Accreditation #[id number] and CAP Accreditation #[id number], verif ied the performance characteristics of this assay. Int ernal controls are us ed to monitor all sta ges of the test proces s. [facility]Abchtvidzxdq-[id number] 23:01:01 Test Item Value Reference Range Interpretation Comments COVID19 Not Detected Not Detected (SARS-CoV-2) (test code = 26698-6) COVID19 SARS Inpatient Indication (test Admission code = 87439) Covid 19 Comment See Note The ruby S ARS-CoV-2 (test code = [place] [address]) use on the jeanne s Chastity System [...] sheet for patie nts provided by the second grade teacher ([employer]) can be rev iewed at: https://www.fda .gov/m edia/696118/otf nload. A fact sheet fo r Health Care pro viders is provided by the second grade teacher ([employer]) and can be reviewed at: https://www.fda .gov/m edia/997877/otf nload Results must be interpreted wit hin [...] by t [facility] for use only un teetee Emergency Use Authorization ( EUA) in laboratories that have been CLIA-certified to perform moderate-comple xity and high-comple xity tests. The Microbiology Laboratory at [facility], CLIA Accreditation #[id number] and CAP Accreditation #[id number], verif ied the performance characteristics of this assay. Int ernal controls are us ed to monitor all sta ges of the test proces s. [facility])Krwxbbwxwxin-UU9489-07-07 23:01:01 Test Item Value Reference Range Interpretation Comments COVID19 Not Detected Not Detected (SARS-CoV-2) (test code = 27559-4) COVID19 SARS Inpatient Indication (test Admission code = 46078) Covid 19 Comment See Note The ruby S ARS-CoV-2 (test code = [place] [address]) use on the jeanne s Chastity System [...] sheet for patie nts provided by the second grade teacher ([employer]) can be rev iewed at: https://www.fda .gov/m edia/264434/otf nload. A fact sheet fo r Health Care pro viders is provided by the second grade teacher ([employer]) and can be reviewed at: https://www.fda .gov/m edia/642345/otf nload Results must be interpreted wit hin [...] by t [facility] for use only un teetee Emergency Use Authorization ( EUA) in laboratories that have been CLIA-certified to perform moderate-comple xity and high-comple xity tests. The Microbiology Laboratory at [facility], CLIA Accreditation #[id number] and CAP Accreditation #[id number], verif ied the performance characteristics of this assay. Int ernal controls are us ed to monitor all sta ges of the test proces s. [facility]aneCOVID-19 (SARS-CoV-2)Cmgkhgtitccw-[id number] 23:01:01 Test Item Value Reference Range Interpretation Comments COVID19 Not Detected Not Detected (SARS-CoV-2) (test code = 38409-0) COVID19 SARS Inpatient Indication (test Admission code = 54017) Covid 19 Comment See Note The ruby S ARS-CoV-2 (test code = [place] [address]) use on the jeanne s Chastity System [...] sheet for patie nts provided by the second grade teacher ([employer]) can be rev iewed at: https://www.[employer]sur[employer] .gov/m edia/023712/otf nload. A fact sheet fo Health Care pro viders is provided by the second grade teacher ([employer]) and can be reviewed at: https://www.[employer] .gov/m edia/940627/otf nload Results must be interpreted wit hin [...] high-comple xity tests. The Microbiology Laboratory at [facility], CLIA Accreditation #[id number] and CAP Accreditation #[id number], verif ied the performance characteristics of this assay. Int ernal controls are us ed to monitor all sta ges of the test proces s. [facility]aneCOVID-19 (SARS-CoV-2)Brcczopikzls-[id number] 23:01:01 Test Item Value Reference Range Interpretation Comments COVID19 Not Detected Not Detected (SARS-CoV-2) (test code = 18349-3) COVID19 SARS Inpatient Indication (test Admission code = 82777) Covid 19 Comment See Note The ruby S ARS-CoV-2 (test code = [place] [address]) use on the jeanne s Chastity System [...] sheet for patie nts provided by the second grade teacher ([employer]) can be rev iewed at: https://www.[employer]sur[employer] .gov/m edia/396613/otf nload. A fact sheet fo Health Care pro viders is provided by the second grade teacher ([employer]) and can be reviewed at: https://www.[employer] .gov/m edia/207906/otf nload Results must be interpreted wit hin [...] high-comple xity tests. The Microbiology Laboratory at [facility], CLIA Accreditation #[id number] and CAP Accreditation #[id number], verif ied the performance characteristics of this assay. Int ernal controls are us ed to monitor all sta ges of the test proces s. [facility]aneCOVID-19 (SARS-CoV-2)Gldivukrbhra-BC2804-42-07 23:01:01 Test Item Value Reference Range Interpretation Comments COVID19 Not Detected Not Detected (SARS-CoV-2) (test code = 14691-0) COVID19 SARS Inpatient Indication (test Admission code = 19094) Covid 19 Comment See Note The ruby S ARS-CoV-2 (test code = [place] [address]) use on the jeanne s Chastity System [...] sheet for patie nts provided by the second grade teacher ([employer]) can be rev iewed at: https://www.Insuritas .gov/m edia/246802/otf nload. A fact sheet fo r Health Care pro viders is provided by the second grade teacher ([employer]) and can be reviewed at: https://www.[employer]sur[employer] .gov/m edia/988711/otf nload Results must be interpreted wit hin [...] by t [facility] for use only un teetee Emergency Use Authorization ( EUA) in laboratories that have been CLIA-certified to perform moderate-comple xity and high-comple xity tests. The Microbiology Laboratory at [facility], CLIA Accreditation #[id number] and CAP Accreditation #[id number], verif ied the performance characteristics of this assay. Int ernal controls are us ed to monitor all sta ges of the test proces s. [facility]aneCOVID-19 (SARS-CoV-2)Xvjauglojftw-[id number] 23:01:01 Test Item Value Reference Range Interpretation Comments COVID19 Not Detected Not Detected (SARS-CoV-2) (test code = 03598-1) COVID19 SARS Inpatient Indication (test Admission code = 13653) Covid 19 Comment See Note The ruby S ARS-CoV-2 (test code = [place] [address]) use on the jeanne s Chastity System [...] sheet for patie nts provided by the second grade teacher ([employer]) can be rev iewed at: https://www.Insuritas .gov/m edia/892341/otf nload. A fact sheet fo Health Care pro viders is provided by the second grade teacher ([employer]) and can be reviewed at: https://www.Insur[employer] .gov/m edia/373044/otf nload Results must be interpreted wit hin [...] high-comple xity tests. The Microbiology Laboratory at [facility], CLIA Accreditation #[id number] and CAP Accreditation #[id number], verif ied the performance characteristics of this assay. Int ernal controls are us ed to monitor all sta ges of the test proces s. [facility]2023-04-07 21:13:54CK MB<2.0<=5.3 ng/mLUT [facility]2023-[facility]-07 21:13:54CK MB<2.0<=5.3 ng/mLUT [facility] 2023-02-05 21:13:54CK MB<2.0<=5.3 ng/mLUT [facility]2023-04-07 21:13:54CK MB<2.0<=5.3 ng/mLUT [facility]2023-04-07 21:13:54CK MB<2.0<=5.3 ng/mLUT [facility] 2023-02-05 21:13:54CK MB<2.0<=5.3 ng/mLUT [facility]2023-04-07 21:13:54CK MB<2.0<=5.3 ng/mLUT [facility] 21:08:09 Test Item Value Reference Range Interpretation Comments Lipase Lvl (test code = 3040-3) 18 U/L - [facility] 21:08:09 Test Item Value Reference Range Interpretation Comments Lipase Lvl (test code = 3040-3) 18 U/L - [facility] 21:08:09 Test Item Value Reference Range Interpretation Comments Lipase Lvl (test code = 3040-3) 18 U/L 13- [facility] 21:08:09 Test Item Value Reference Range Interpretation Comments Lipase Lvl (test code = 3040-3) 18 U/L 13-60 [facility] 21:08:09 Test Item Value Reference Range Interpretation Comments Lipase Lvl (test code = 3040-3) 18 U/L 13-60 [facility] 21:08:09 Test Item Value Reference Range Interpretation Comments Lipase Lvl (test code = 3040-3) 18 U/L 13-60 [facility] 21:08:09 Test Item Value Reference Range Interpretation Comments Lipase Lvl (test code = 3040-3) 18 U/L 13-60 [facility] [id number] 21:08:08 Test Item Value Reference Range Interpretation Comments Amylase Lvl (test code = 1798-8) 43 U/L 28-100 [facility] [id number] 21:08:08 Test Item Value Reference Range Interpretation Comments Amylase Lvl (test code = 1798-8) 43 U/L 28-100 [facility] Dlmso0983-59-07 21:08:08 Test Item Value Reference Range Interpretation Comments Amylase Lvl (test code = 1798-8) 43 U/L 28-100 [facility] [id number] 21:08:08 Test Item Value Reference Range Interpretation Comments Amylase Lvl (test code = 1798-8) 43 U/L 28-100 [facility] Atyct9963-48-04 21:08:08 Test Item Value Reference Range Interpretation Comments Amylase Lvl (test code = 1798-8) 43 U/L 28-100 [facility] [id number] 21:08:08 Test Item Value Reference Range Interpretation Comments Amylase Lvl (test code = 1798-8) 43 U/L 28-100 [facility] [id number] 21:08:08 Test Item Value Reference Range Interpretation Comments Amylase Lvl (test code = 1798-8) 43 U/L 28-100 [facility]Hematocrit2023-[facility]-30 13:50:44 Test Item Value Reference Range Interpretation Comments Hct (test code = 4544-3) 40.6 % 37.0-47.0 [facility]2023-[facility]-30 13:50:44 Test Item Value Reference Range Interpretation Comments Hct (test code = 4544-3) 40.6 % 37.0-47.0 [facility]2023-03-30 13:50:44 Test Item Value Reference Range Interpretation Comments Hct (test code = 4544-3) 40.6 % 37.0-47.0 [facility]2023-03-30 13:50:44 Test Item Value Reference Range Interpretation Comments Hct (test code = 4544-3) 40.6 % 37.0-47.0 [facility]Hematocrit2023-03-30 13:50:44 Test Item Value Reference Range Interpretation Comments Hct (test code = 4544-3) 40.6 % 37.0-47.0 [facility]Hematocrit2023-03-30 13:50:44 Test Item Value Reference Range Interpretation Comments Hct (test code = 4544-3) 40.6 % 37.0-47.0 [facility]Hematocrit2023-03-30 13:50:44 Test Item Value Reference Range Interpretation Comments Hct (test code = 4544-3) 40.6 % 37.0-47.0 [facility]Hemoglobin2023-03-30 13:50:43 Test Item Value Reference Range Interpretation Comments Hgb (test code = 13.3 See_Comment [Automated message] The 718-7) system which ge nerated this result transmit kaylie reference range : 12.0 - 16.0 gm/dL. The reference range was not u sed to interpret this result as normal/abnormal . [facility] 13:50:43 Test Item Value Reference Range Interpretation Comments Hgb (test code = 13.3 See_Comment [Automated message] The ) system which ge nerated this result transmit kaylie reference range : 12.0 - 16.0 gm/dL. The reference range was not u sed to interpret this result as normal/abnormal . [facility] 13:50:43 Test Item Value Reference Range Interpretation Comments Hgb (test code = 13.3 See_Comment [Automated message] The ) system which ge nerated this result transmit kaylie reference range : 12.0 - 16.0 gm/dL. The reference range was not u sed to interpret this result as normal/abnormal . [facility] 13:50:43 Test Item Value Reference Range Interpretation Comments Hgb (test code = 13.3 See_Comment [Automated message] The 718-7) system which ge nerated this result transmit kaylie reference range : 12.0 - 16.0 gm/dL. The reference range was not u sed to interpret this result as normal/abnormal . [facility] 13:50:43 Test Item Value Reference Range Interpretation Comments Hgb (test code = 13.3 See_Comment [Automated message] The 8-7) system which ge nerated this result transmit kaylie reference range : 12.0 - 16.0 gm/dL. The reference range was not u sed to interpret this result as normal/abnormal . [facility] 13:50:43 Test Item Value Reference Range Interpretation Comments Hgb (test code = 13.3 See_Comment [Automated message] The 718-) system which ge nerated this result transmit kaylie reference range : 12.0 - 16.0 gm/dL. The reference range was not u sed to interpret this result as normal/abnormal . [facility] 13:50:43 Test Item Value Reference Range Interpretation Comments Hgb (test code = 13.3 See_Comment [Automated message] The 718-7) system which ge nerated this result transmit kaylie reference range : 12.0 - 16.0 gm/dL. The reference range was not u sed to interpret this result as normal/abnormal . [facility] CenterTetrahydocannabinol (THC), Quantitative, [id number] 19:13:38 Test Item Value Reference Range Interpretation Comments U THC GC/MS-[place] n/a (test code = 7812) U THC [place] see note Carboxy-TH C Confirmation, (test code [...] 42 ng/mLReference Value: Cutoff: 5 ======PERFORMIN G LAB:[facility] [address] [address] 905 Moe Guzman M.D. Ph.D. [id number] U THC [facility]-[place] n/a (test code = 7811) [facility] CenterTetrahydocannabinol (THC), Quantitative, [id number] 19:13:38 Test Item Value Reference Range Interpretation Comments U THC GC/MS-[place] n/a (test code = 7812) U THC [facility] see note Carboxy-TH C Confirmation, (test [...] 42 ng/mLReference Value: Cutoff: 5 ======[facility]FORMIN G LAB[facility] [address] [facility] 55 905 Moe Guzman M.D. Ph.D. [id number] U THC [place] n/a (test code = 7811) [facility]an[facility] PlaneTetrahydocannabinol (THC), Quantitative, [id number] 19:13:38 Test Item Value Reference Range Interpretation Comments U THC GC/MS-[place] n/a (test code = 7812) U THC Interp[place] see note Carboxy-TH C Confirmation, (test code [...] 42 ng/mLReference Value: Cutoff: 5 ======PERFORMIN G LAB:[facility] Lab [facility] [address] [address] 17 Moe Guzman M.D. Ph.D. [id number] U THC [facility] n/a (test code = 7811) [facility] CenterTetrahydocannabinol (THC), Quantitative, [id number] 19:13:38 Test Item Value Reference Range Interpretation Comments U THC GC/MS-[place] n/a (test code = 7812) U THC [facility] see note Carboxy-TH C Confirmation, (test [...] 42 ng/mLReference Value: Cutoff: 5 ======VAMSI Alvarado LAB:[facility] [address] [address] 15 Moe Guzman M.D. Ph.D. [id number] U THC [facility] n/a (test code = 7811) [facility] CenterTetrahydoc[facility]abinol (THC), Quantitative, [id number] 19:13:38 Test Item Value Reference Range Interpretation Comments U THC GC/MS-[place] n/a (test code = 7812) U THC [place] see note Carboxy-TH C Confirmation, (test code [...] ng/mLReference Value: Cutoff: 5 ======PERFORMIN G LAB:[facility] [address] 46 Moe Guzman M.D. Ph.D. [id number] U THC [facility] n/a (test code = 7811) [facility] Center[facility]etra[facility]doc[facility] ([facility]C), Quantitative, [id number] 19:13:38 Test Item Value Reference Range Interpretation Comments U THC GC/MS-[place] n/a (test code = 7812) U THC [place] see note Carboxy-TH C Confirmation, (test code = 7813) U: Carbox y-THC Interpretation: Positive ADDITIONAL INFO RMATION:This report is inten ded for use in clinical [facility] [place] andmanagement o f patients. It is not inten ded for use inemployment-re lated testing.------- ------Delta- 8 Carboxy-Tetrahy drocannabino l by LC-MS/MS: 672 ng/mLReference Value: Cutoff: 5 Delta -9 Carboxy-Tetrahy drocannabino l by LC-MS/MS: 42 ng/mLReference Value: Cutoff: 5 ======PERFORMIN G LAB:[facility] [address] [address] 90 Moe Guzman M.D. Ph.D. [id number] U THC [facility]-[place] n/a (test code = 7811) [facility] PlaneTetrahydocannabinol (THC), Quantitative, [id number] 19:13:38 Test Item Value Reference Range Interpretation Comments U THC GC/MS-[place] n/a (test code = 7812) U THC [facility] see note Carboxy-TH C Confirmation, (test code = 7813) U: Carbox y-THC Interpretation: Positive ADDITIONAL INFO RMATION:This report is inten ded for use in clinical [facility] andmanagement o f patients. It is not inten ded for use inemployment-re lated testing.------- ------Delta- 8 Carboxy-Tetrahy drocannabino l by LC-MS/MS: 672 ng/mLReference Value: Cutoff: 5 Delta -9 Carboxy-Tetrahy drocannabino l by LC-MS/MS: 42 ng/mLReference Value: Cutoff: 5 ======PERFORMIN G LAB:[facility] Lab oratories [facility] [address] [facility] 55 905 Moe Guzman M.D. Ph.D. [id number] U [facility] n/a (test code = 7811) [facility] PlaneUrinalysis Microscopic Exam 2023-01-27 04:26:48 Test Item Value Reference Range Interpretation Comments UA WBC (test code = 6 See_Comment H Some rep orting 66459-3) parameters with in the Urinalysis test have changed due to the implementation of new instrumentation in the [facility] greater sensiti vity of measurement. Urinalysis resu lts reported by the [facility] enters using existing instrumentation , as well as Urinaly sis testing perform ed manually or by backup methodology at the [facility] chino l remain relative ly unchanged. New reporting asha eters and units will not be reported for al l campuses. [Auto mated message] The sy stem which generated this result transmit kaylie reference range : 0 - 2 /HPF. The refer ence range was not u sed to interpret this result as normal/abnor mal. UA RBC (test code = See_Comment [Automa kaylie message] 11892-7) The system [employer] generated this result transmitted ref erence range: 0 - 2 /H PF. The reference range was not used to int erpret this result as normal/abnormal . UA Mucous (test code = NOT SEEN Not Seen-Trace 29026-4) /HPF UA Bacteria (test code NOT SEEN NOT SEEN /HPF = 04302-6) UA Squam Epi (test OCC None-Occasional code = 92249-3) /HPF Lab Interpretation Abnormal (test code = 64717-7) [facility]:26:48 Test Item Value Reference Range Interpretation Comments UA WBC (test code = 6 See_Comment H Some rep orting 38825-2) parameters with in the Urinalysis test have changed due to the implementation of new instrumentation in the [employer] [place], al lowing greater sensiti vity of measurement. Urinalysis resu lts reported by the [facility] C enters using existing instrumentation , as well as Urinaly sis testing perform ed manually or by backup methodology at the [facility] chino l remain relative ly unchanged. New reporting asha eters and units will not be [facility]. [Auto mated message] The sy stem which generated this result transmit kaylie reference range : 0 - 2 /HPF. The refer ence range was not u sed to interpret this result as normal/abnor mal. UA RBC (test code = See_Comment [Automa kaylie message] 96997-0) The system [employer] generated this result transmitted ref erence range: 0 - 2 /H PF. The reference range was not used to int erpret this result as normal/abnormal . UA Mucous (test code = NOT SEEN Not Seen-Trace 47019-5) /HPF UA Bacteria (test code NOT SEEN NOT SEEN /HPF = 63361-2) UA Squam Epi (test OCC None-Occasional code = 16456-0) /HPF Lab Interpretation Abnormal (test code = 73167-6) [facility] 04:26:48 Test Item Value Reference Range Interpretation Comments UA WBC (test code = 6 See_Comment H Some rep orting 11128-8) parameters with in the Urinalysis test have changed due to the implementation of new instrumentation in the [employer] [place], al lowing greater sensiti vity of measurement. Urinalysis resu lts reported by the [facility] C enters using existing instrumentation , as well as Urinaly sis testing perform ed manually or by backup methodology at the [facility] chino l remain relative ly unchanged. New reporting asha eters and units will not be reported for [facility]. [Auto mated message] The sy stem which generated this result transmit kaylie reference range : 0 - 2 /HPF. The refer ence range was not u sed to interpret this result as normal/abnor mal. UA RBC (test code = See_Comment [Automa kaylie message] 99783-0) The system [employer] generated this result transmitted ref erence range: 0 - 2 /H PF. The reference range was not used to int erpret this result as normal/abnormal . UA Mucous (test code = NOT SEEN Not Seen-Trace 79191-4) /HPF UA Bacteria (test code NOT SEEN NOT SEEN /HPF = 61538-4) UA Squam Epi (test OCC None-Occasional code = 49732-3) /HPF Lab Interpretation Abnormal (test code = 27884-0) [facility] 2023-01-27 04:26:48 Test Item Value Reference Range Interpretation Comments UA WBC (test code = 6 See_Comment H Some rep orting 95209-2) parameters with in the Urinalysis test have changed due to the implementation of new instrumentation in the [facility], al lowing greater sensiti vity of measurement. Urinalysis resu lts reported by the [facility] C enters using existing instrumentation , as well as Urinaly sis testing perform ed manually or by backup methodology at the [facility] chino l remain relative ly unchanged. New reporting asha eters and units will not be reported for [facility]. [Auto mated message] The sy stem which generated this result transmit kaylie reference range : 0 - 2 /HPF. The refer ence range was not u sed to interpret this result as normal/abnor mal. UA RBC (test code = See_Comment [Automa kaylie message] 68410-6) The system [employer] generated this result transmitted ref erence range: 0 - 2 /H PF. The reference range was not used to int erpret this result as normal/abnormal . UA Mucous (test code = NOT SEEN Not Seen-Trace 62372-7) /HPF UA Bacteria (test code NOT SEEN NOT SEEN /HPF = 20679-7) UA Squam Epi (test OCC None-Occasional code = 27133-2) /HPF Lab Interpretation Abnormal (test code = 46136-9) [facility] 04:26:48 Test Item Value Reference Range Interpretation Comments UA WBC (test code = 6 See_Comment H Some rep orting 73098-6) parameters with in the Urinalysis test have changed due to the implementation of new instrumentation in the [facility], al lowing greater sensiti vity of measurement. Urinalysis resu lts reported by the [facility] C enters using existing instrumentation , as well as Urinaly sis testing perform ed manually or by backup methodology at the [facility] [place] l remain relative ly unchanged. New reporting asha eters and units will not be reported for al l campuses. [Auto mated message] The sy stem which generated this result transmit kaylie reference range : 0 - 2 /HPF. The refer ence range was not u sed to interpret this result as normal/abnor mal. UA RBC (test code = See_Comment [Automa kaylie message] 79412-8) The system [employer] generated this result transmitted ref erence range: 0 - 2 /H PF. The reference range was not used to int erpret this result as normal/abnormal . UA Mucous (test code = NOT SEEN Not Seen-Trace 42891-3) /HPF UA Bacteria (test code NOT SEEN NOT SEEN /HPF = 64836-2) UA Squam Epi (test OCC None-Occasional code = 43869-7) /HPF Lab Interpretation Abnormal (test code = 23450-9) [facility]23[facility]-27 04:26:48 Test Item Value Reference Range Interpretation Comments UA WBC (test code = 6 See_Comment H Some rep orting 58281-9) parameters with in the Urinalysis test have changed due to the implementation of new instrumentation in the [employer] [place], al lowing greater sensiti vity of measurement. Urinalysis resu lts reported by the [facility] C enters using existing instrumentation , as well as Urinaly sis testing perform ed manually or by backup methodology at the [facility] [place] l remain relative ly unchanged. New reporting asha eters and units will not be reported for al l campuses. [Auto mated message] The sy stem which generated this result transmit kaylie reference range : 0 - 2 /HPF. The refer ence range was not u sed to interpret this result as normal/abnor mal. UA RBC (test code = See_Comment [Automa kaylie message] 00977-8) The system [employer] generated this result transmitted ref erence range: 0 - 2 /H PF. The reference range was not used to int erpret this result as normal/abnormal . UA Mucous (test code = NOT SEEN Not Seen-Trace 33552-6) /HPF UA Bacteria (test code NOT SEEN NOT SEEN /HPF = 74065-6) UA Squam Epi (test OCC None-Occasional code = 96225-7) /HPF Lab Interpretation Abnormal (test code = 77106-1) [facility] 2023-01-27 04:26:48 Test Item Value Reference Range Interpretation Comments UA WBC (test code = 6 See_Comment H Some rep orting 04852-2) parameters with in the Urinalysis test have changed due to the implementation of new instrumentation in the [facility], [facility] sensiti vity of measurement. Urinalysis resu lts reported by the [facility] C enters using existing instrumentation , as well as Urinaly sis testing perform ed manually or by backup methodology at the [facility] [place] l remain relative ly unchanged. New reporting asha eters and units will not be reported for ct l campuses. [Auto mated message] The sy stem which generated this result transmit kaylie reference range : 0 - 2 /HPF. The refer ence range was not u sed to interpret this result as normal/abnor mal. UA RBC (test code = See_Comment [Automa kaylie message] 73514-2) The system [employer] generated this result transmitted ref erence range: 0 - 2 /H PF. The reference range was not used to int erpret this result as normal/abnormal . UA Mucous (test code = NOT SEEN Not Seen-Trace 28080-7) /HPF UA Bacteria (test code NOT SEEN NOT SEEN /HPF = 93597-4) UA Squam Epi (test OCC None-Occasional code = 47670-0) /HPF Lab Interpretation Abnormal (test code = 39475-0) [facility] if [id number] 03:58:37 Test Item Value Reference Range Interpretation Comments UA Color (test code = 43082-5) Straw Straw-Yellow UA Appear (test code = 12676-3) Clear Clear UA Glucose (test code = [...] NEG Lab Interpretation (test code = Abnormal 95781-9) [facility] if [id number] 03:58:37 Test Item Value Reference Range Interpretation Comments UA Color (test code = 03626-3) Straw Straw-Yellow UA Appear (test code = 65731-6) Clear Clear UA Glucose (test code = [...] NEG Lab Interpretation (test code = Abnormal 12614-2) [facility] if [id number] 03:58:37 Test Item Value Reference Range Interpretation Comments UA Color (test code = 03869-4) Straw Straw-Yellow UA Appear (test code = 88819-4) Clear Clear UA Glucose (test code = [...] NEG Lab Interpretation (test code = Abnormal 90156-3) [facility] if [id number] 03:58:37 Test Item Value Reference Range Interpretation Comments UA Color (test code = 49948-6) Straw Straw-Yellow UA Appear (test code = 09936-2) Clear Clear UA Glucose (test code = [...] NEG Lab Interpretation (test code = Abnormal 68748-6) [facility] if [id number] 03:58:37 Test Item Value Reference Range Interpretation Comments UA Color (test code = 76795-0) Straw Straw-Yellow UA Appear (test code = 06097-1) Clear Clear UA Glucose (test code = [...] NEG Lab Interpretation (test code = Abnormal 91915-9) [facility] if [id number] 03:58:37 Test Item Value Reference Range Interpretation Comments UA Color (test code = 06547-0) Straw Straw-Yellow UA Appear (test code = 04248-4) Clear Clear UA Glucose (test code = [...] NEG Lab Interpretation (test code = Abnormal 32495-7) [facility] if [id number] 03:58:37 Test Item Value Reference Range Interpretation Comments UA Color (test code = 71736-8) Straw Straw-Yellow UA Appear (test code = 43076-7) Clear Clear UA Glucose (test code = [...] NEG Lab Interpretation (test code = Abnormal 56140-3) [facility]38[facility]14 Test Item Value Reference Range Interpretation Comments LDH (test code = 289 U/L 135-214 H Results gre ater than 40556-9) 1651 U/L may no t be reliable due to matrix effect w ith extended diluti on as it exceeds the second grade teacher's recommended goldberg it. Caution should be exercised when interpreting agarwal ch values and done in conjunction [facility] clinical contex t. Lab Interpretation (test Abnormal code = 25228-0) [facility]:38[facility]14 Test Item Value Reference Range Interpretation Comments LDH (test code = 289 U/L 135-214 H Results gre ater than 95235-6) 1651 U/L may no t be reliable due to matrix effect w ith extended diluti on as it exceeds the second grade teacher's recommended goldberg it. Caution should be exercised when interpreting agarwal ch values and done in conjunction wit clinical contex t. Lab Interpretation (test Abnormal code = 44772-0) [facility]:38[facility]14 Test Item Value Reference Range Interpretation Comments LDH (test code = 289 U/L 135-214 H Results gre ater than 79101-7) 1651 U/L may no t be reliable due to matrix effect w ith extended diluti on as it exceeds the second grade teacher's recommended goldberg it. Caution should be exercised when interpreting agarwal ch values and done in conjunction [facility] clinical contex t. Lab Interpretation (test Abnormal code = 50583-4) [facility] 20:38:14 Test Item Value Reference Range Interpretation Comments LDH (test code = 289 U/L 135-214 H Results gre ater than 23038-8) 1651 U/L may no t be reliable due to matrix effect w ith extended diluti on as it exceeds the second grade teacher's recommended goldberg it. Caution should be exercised when interpreting agarwal ch values and done in conjunction [facility] clinical contex t. Lab Interpretation (test Abnormal code = 84861-4) [facility] 20:38:14 Test Item Value Reference Range Interpretation Comments LDH (test code = 289 U/L 135-214 H Results gre ater than 35806-9) 1651 U/L may no t be reliable due to matrix effect w ith extended diluti on as it exceeds the second grade teacher's recommended goldberg it. Caution should be exercised when interpreting agarwal ch values and done in conjunction [facility] clinical [employer] t. Lab Interpretation (test Abnormal code = 35879-1) [facility] 20:38:14 Test Item Value Reference Range Interpretation Comments LDH (test code = 289 U/L 135-214 H Results gre ater than 62824-0) 1651 U/L may no t be reliable due to matrix effect w ith extended diluti on as it exceeds the second grade teacher's recommended goldberg it. Caution should be exercised when interpreting agarwal ch values and done in conjunction [facility] clinical [employer] t. Lab Interpretation (test Abnormal code = 58550-9) [facility] 20:38:14 Test Item Value Reference Range Interpretation Comments LDH (test code = 289 U/L 135-214 H Results gre ater than 97116-9) 1651 U/L may no t be reliable due to matrix effect w ith extended diluti on as it exceeds the second grade teacher's recommended goldberg it. Caution should be exercised when interpreting agarwal ch values and done in conjunction [facility] clinical [employer] t. Lab Interpretation (test Abnormal code = 82997-6) [facility], [id number] 09:20:34 Test Item Value Reference Interpretation Comments Range Urine Creatinine 55.1 mg/dL (test code = 2161-8) Urine Specific 1.014 Clarence (test code = 5810-7) Urine Ph (test 6.2 code = 2756-5) Urine Oxidants Negative Cutoff: 200 (test code = mg/L 88408-3) Urine Comment Normal (test code = 14797-3) U Negative Cutoff: 200 Barbiturates-[place] ng/mL (test code = 19170-0) U Cocaine Lvl-[place] Negative Cutoff: 150 This coca ine immunoassay (test code = ng/mL targets benzoyl ecgonine 36279-5) theprimary meta bolite of cocaine. U THC-[place] (test See Cutoff: 50 A RESULT: Pre sumptive code = 40143-3) Footnote ng/mL PositiveThis immunoassay targets delta-9 tetrahydrocanna [...] code Not Cutoff: 25 Tylenol 3 = 35472-1) Detected ng/mL Lodfiri-0-eukm-glu Not Cutoff: 100 Metabolit e of codeine curonide (test Detected ng/mL code = 78585-2) Morphine (test Not Cutoff: 25 Gayle Mary n, MS Contin; Also code = 38054-2) Detected ng/mL a minor meta bolite (10%) ofcodeine and c an be seen in low concentrati ons (<2,000ng/mL) w ith poppy seed ingestion. Akpoaaji-0-ffvr-gl Not Cutoff: 100 Metabolit e of morphine ucuronide (test Detected ng/mL code = 89729-4) 6-monoacetylmorphi Not Cutoff: 25 Metabolit e of heroin ne (test code = Detected ng/mL 64422-7) Hydrocodone (test Not Cutoff: 25 Lortab, No rco, Vicodin; Also a code = 98751-4) Detected ng/mL very minor m etabolite ofcodeine and impurity (< 1%) of oxycodone. Norhydrocodone Not Cutoff: 25 Metabolite of hydrocodone (test code = Detected ng/mL 24507-2) Dihydrocodeine Not Cutoff: 25 Metabolite of hydrocodone (test code = Detected ng/mL 82998-0) Hydromorphone Not Cutoff: 25 Dilaudid, Exal go; Also a (test code = Detected ng/mL metabolite of h ydrocodone and 66408-0) aminor (<5%) me tabolite of morphine. Pyoqqkpsqvhhq-2-wf Not Cutoff: 100 Metabolit e of hydromorphone ta-glucuronide Detected ng/mL (test code = 17799-9) Oxycodone (test Present Cutoff: 25 A Endocet, Per cocet, Oxycontin code = 31545-4) ng/mL Noroxycodone (test Present Cutoff: 25 A Metabolit e of oxycodone code = 05704-8) ng/mL Oxymorphone (test Not Cutoff: 25 Numorphan, Opana; Also a code = 29594-3) Detected ng/mL metabolite o f oxycodone. Wwjvfxtlpmy-4-vfkf Not Cutoff: 100 Metabolit e of oxymorphone -glucuronide (test Detected ng/mL and/or na loxone (nornaloxone) code = 25015-7) Noroxymorphone Present Cutoff: 25 A Metabolite of oxymorphone (test code = ng/mL and/or naloxone (nornaloxone) 60407-9) Fentanyl (test Not Cutoff: 2 Actiq, Durage sic, Fentora code = 41084-1) Detected ng/mL Norfentanyl (test Not Cutoff: 2 Metabolite of fentanyl code = 28217-5) Detected ng/mL Meperidine (test Not Cutoff: 25 Demerol code = 97753-3) Detected ng/mL Normeperidine Not Cutoff: 25 Metabolite of meperidine (test code = Detected ng/mL 85140-9) Naloxone (test Not Cutoff: 25 Narcan code = 63970-9) Detected ng/mL Opumaakq-6-xlwa-gl Not Cutoff: 100 Metabolit e of naloxone ucuronide (test Detected ng/mL code = 49332-9) U Methadone (test Not Cutoff: 25 Dolophine code = 89269-1) Detected ng/mL EDDP (test code = Not Cutoff: 25 Metabolite of methadone 02052-3) Detected ng/mL Propoxyphene (test Not Cutoff: 25 Darvon, D arvocet code = 39127-0) Detected ng/mL Norpropoxyphene Not Cutoff: 25 Metabolite o f propoxyphene (test code = Detected ng/mL 67826-2) Tramadol (test Not Cutoff: 25 Tradol, Ultra m, Ultracet code = 51700-6) Detected ng/mL O-desmethyltramado Not Cutoff: 25 Metabolit e of tramadol l (test code = Detected ng/mL 43415-2) Tapentadol (test Not Cutoff: 25 Nucynta code = 27572-5) Detected ng/mL Fidiwfecnp-jaqw-kf Not Cutoff: 100 Metabolit e of tapentadol ucuronide (test Detected ng/mL code = 49212-8) Buprenorphine Not Cutoff: 5 Buprenex, Subo xone (test code = Detected ng/mL 97612-6) Norbuprenorphine Not Cutoff: 5 Metabolite of buprenorphine (test code = Detected ng/mL 68517-9) Norbuprenorphine Not Cutoff: 20 Metabolite of buprenorphine Glucuronide (test Detected ng/mL code = 07064-3) Benzodiazepine See Test detected the presence of Interp Urine (test Footnote alprazola m and two of code = 67735-3) itsmetabolit es (alpha-hydroxya lprazolam andalpha-hydrox yalprazolam glucuronide). S uspect use ofalprazolam wi thin the past three days. Hailey t detected the presence of zol pidem etgnni-0-vlwvrf ylicacid (metabolite of zolpidem) only. Suspect use of zolpidemwithin the past four d ays. ----ADDITIONAL INFORMATION---- T his test was de veloped and its performance characteristics determined by [facility] in a manner consistent with CLIArequirement s. This test has not been cleare d or approved bythe U.S. Food and Drug Administration. Alprazolam Urine Present Cutoff: 10 A Xanax (test code = ng/mL 19139-8) Alpha-Hydroxyalpra Present Cutoff: 10 A Metabolit e of Alprazolam zolam Urine (test ng/mL code = 05769-6) Alpha-Hydroxyalpra Present Cutoff: 50 A Metabolit e of Alprazolam zolam Glucuronide ng/mL Urine (test code = 50981-5) Chlordiazepoxide Not Cutoff: 10 Librium Urine (test code = Detected ng/mL 75606-9) Colbazam Urine Not Cutoff: 10 Frisium, Onfi (test code = Detected ng/mL 61813-3) N-Desmethylclobaza Not Cutoff: 200 Metabolit e of Clobazam m Urine (test code Detected ng/mL = 79537-9) Clonazepam Urine Not Cutoff: 10 Klonopin, R ivotril (test code = Detected ng/mL 09365-2) 7-Aminoclonazepam Not Cutoff: 10 Metabolite of Clonazepam Urine (test code = Detected ng/mL 17960-6) Diazepam Urine Not Cutoff: 10 Valium (test code = Detected ng/mL 04443-3) Nordiazepam Urine Not Cutoff: 10 Metabolite of Chlordiazepoxide, (test code = Detected ng/mL Diazepam, or Pr azepam. 62904-9) Flunitrazepam Not Cutoff: 10 Rohypnol Urine (test code = Detected ng/mL 16820-7) 7-Aminoflunitrazep Not Cutoff: 10 Metabolit e of Flunitrazepam am Urine (test Detected ng/mL code = 61936-0) FlUrinerazepam Not Cutoff: 10 Dalmane Urine (test code = Detected ng/mL 76355-9) 2-Hydroxy Ethyl Not Cutoff: 10 Metabolite o f Flurazepam Flurazepam Urine Detected ng/mL (test code = 94884-4) Lorazepam Urine Not Cutoff: 10 Ativan (test code = Detected ng/mL 50915-6) Lorazepam Not Cutoff: 50 Metabolite of L orazepam Glucuronide Urine Detected ng/mL (test code = 62392-1) Midazolam Urine Not Cutoff: 10 Versed (test code = Detected ng/mL 14612-0) Alpha-Hydroxy Not Cutoff: 10 Metabolite of Midazolam Midazolam Urine Detected ng/mL (test code = 46000-1) Oxazepam Urine Not Cutoff: 10 Serax; Also a metabolite of (test code = Detected ng/mL Chlordiazepoxid e, Diazepam, 89903-4) orTemazepam. Oxazepam Not Cutoff: 50 Metabolite of O xazepam Glucuronide Urine Detected ng/mL (test code = 86653-7) Prazepam Urine Not Cutoff: 10 Centrax (test code = Detected ng/mL 06003-0) Temazepam Urine Not Cutoff: 10 Restoril; Al so a metabolite of (test code = Detected ng/mL Diazepam. 68466-3) Temazepam Not Cutoff: 50 Metabolite of T emazepam Glucuronide Urine Detected ng/mL (test code = 17729-9) Triazolam Urine Not Cutoff: 10 Halcion (test code = Detected ng/mL 90842-2) Alpha-Hydroxy Not Cutoff: 10 Metabolite of Triazolam Triazolam Urine Detected ng/mL (test code = 06400-6) Zolpidem Urine Not Cutoff: 10 Ambien (test code = Detected ng/mL 60891-6) Zolpidem Present Cutoff: 10 A Metabolite of Z olpidem Hajse-9-Fmnpqzmblk ng/mL Acid Urine (test code = 52608-0) Methamphetamine Not Cutoff: 100 Desoxyn (test code = Detected ng/mL 77628-8) Amphetamine (test Not Cutoff: 100 Dyanavel X R, Adzenys ER, code = 68181-4) Detected ng/mL Adderall, Vy vanse; Also ametabolite of methamphetamine 3,4-Methylenedioxy Not Cutoff: 100 methamphetamine Detected ng/mL (MDMA) (test code = 85443-6) 3,4-Methylenedioxy Not Cutoff: 100 -N-Ethylamphetamin Detected ng/mL e (MDEA) (test code = 63584-1) 3,4-Methylenedioxy Not Cutoff: 100 Also a me tabolite of MDMA amphetamine (MDA) Detected ng/mL and/or MDE A (test code = 64205-3) Ephedrine (test Not Cutoff: 100 code = 10984) Detected ng/mL Pseudoephedrine Present Cutoff: 100 A Sudafed (test code = ng/mL 40936) Phentermine (test Not Cutoff: 100 Adipex-PStacey, Nileymia code = 52814-9) Detected ng/mL Phencyclidine Not Cutoff: 20 (PCP) (test code = Detected ng/mL ) Methylphenidate Not Cutoff: 20 Ritalin, Con certa (test code = Detected ng/mL 76462-7) Ritalinic acid Not Cutoff: 100 Metabolite of methylphenidate (test code = Detected ng/mL ) Stimulant See Test detected t he presence of Interpretation Footnote pseudoephedri ne. Suspect useof (test code = pseudoephedrine within the past 56218-2) three days. ----ADDITIONAL INFORMATION---- T his test was de veloped and its performance characteristics determined by [facility] in a manner consistent with CLIArequirement s. This test has not been cleare d or approved bythe U.S. Food and Drug Administration. Test Performed by:[facility] [id number] [place], [place] [address]Nzu Dir ronnie: Moe Guzman M.D. Ph.D.; CLIA# [id number] Patients Current NOT ---------ADDITIONAL Medications (test ANSWERED INFORMATIO N A code = 40418-3) ccuracy and completeness of declared medica tions onreports solely dependen t on information submitted bymarco a umaña. Lab Interpretation Abnormal (test code = 74166-0) [facility] PlaneControlled Substance Monitoring Panel, [id number] 09:20:34 Test Item Value Reference Interpretation Comments Range Urine Creatinine 55.1 mg/dL (test code = 2161-8) Urine Specific 1.014 Clarence (test code = 5810-7) Urine Ph (test 6.2 code = 2756-5) Urine Oxidants Negative Cutoff: 200 (test code = mg/L 23387-3) Urine Comment Normal (test code = 49978-8) U Negative Cutoff: 200 Barbiturates-[place] ng/mL (test code = 31764-0) U Cocaine Lvl-[place] Negative Cutoff: 150 This coca ine immunoassay (test code = ng/mL targets benzoyl ecgonine 88913-6) theprimary meta bolite of cocaine. U [facility] (test See Cutoff: 50 A RESULT: Pre sumptive code = 00326-8) Footnote ng/mL PositiveThis immunoassay targets delta-9 tetrahydrocanna [...] code Not Cutoff: 25 Tylenol 3 = 87706-2) Detected ng/mL Belylvr-9-qymx-glu Not Cutoff: 100 Metabolit e of codeine curonide (test Detected ng/mL code = 22917-1) Morphine (test Not Cutoff: 25 Avirome, Gayle n, MS Contin; Also code = 71739-3) Detected ng/mL a minor meta bolite (10%) ofcodeine and c an be seen in low concentrati ons (<2,000ng/mL) w ith poppy seed ingestion. Lbzuyuzr-0-yeiw-gl Not Cutoff: 100 Metabolit e of morphine ucuronide (test Detected ng/mL code = 10433-3) 6-monoacetylmorphi Not Cutoff: 25 Metabolit e of heroin ne (test code = Detected ng/mL 08702-9) Hydrocodone (test Not Cutoff: 25 Lortab, No rco, Vicodin; Also a code = 79750-5) Detected ng/mL very minor m etabolite ofcodeine and impurity (< 1%) of oxycodone. Norhydrocodone Not Cutoff: 25 Metabolite of hydrocodone (test code = Detected ng/mL 87507-2) Dihydrocodeine Not Cutoff: 25 Metabolite of hydrocodone (test code = Detected ng/mL 95440-4) Hydromorphone Not Cutoff: 25 Dilaudid, Exal go; Also a (test code = Detected ng/mL metabolite of h ydrocodone and 28881-6) aminor (<5%) me tabolite of morphine. Ppmasxxbxbjtr-6-ex Not Cutoff: 100 Metabolit e of hydromorphone ta-glucuronide Detected ng/mL (test code = 27436-3) Oxycodone (test Present Cutoff: 25 A Endocet, Per cocet, Oxycontin code = 06076-0) ng/mL Noroxycodone (test Present Cutoff: 25 A Metabolit e of oxycodone code = 96458-8) ng/mL Oxymorphone (test Not Cutoff: 25 Numorphan, Opana; Also a code = 15344-8) Detected ng/mL metabolite o f oxycodone. Daqcrhlsjqq-1-zsio Not Cutoff: 100 Metabolit e of oxymorphone -glucuronide (test Detected ng/mL and/or na loxone (nornaloxone) code = 06672-8) Noroxymorphone Present Cutoff: 25 A Metabolite of oxymorphone (test code = ng/mL and/or naloxone (nornaloxone) 30532-4) Fentanyl (test Not Cutoff: 2 Actiq, Durage sic, Fentora code = 97612-4) Detected ng/mL Norfentanyl (test Not Cutoff: 2 Metabolite of fentanyl code = 67895-0) Detected ng/mL Meperidine (test Not Cutoff: 25 Demerol code = 92250-6) Detected ng/mL Normeperidine Not Cutoff: 25 Metabolite of meperidine (test code = Detected ng/mL 25233-0) Naloxone (test Not Cutoff: 25 Narcan code = 93626-8) Detected ng/mL Khzovfwy-4-weth-gl Not Cutoff: 100 Metabolit e of naloxone ucuronide (test Detected ng/mL code = 47237-0) U Methadone (test Not Cutoff: 25 Dolophine code = 85453-7) Detected ng/mL EDDP (test code = Not Cutoff: 25 Metabolite of methadone 76721-5) Detected ng/mL Propoxyphene (test Not Cutoff: 25 Darvon, D arvocet code = 96333-7) Detected ng/mL Norpropoxyphene Not Cutoff: 25 Metabolite o f propoxyphene (test code = Detected ng/mL 29461-7) Tramadol (test Not Cutoff: 25 Tradol, Ultra m, Ultracet code = 32808-1) Detected ng/mL O-desmethyltramado Not Cutoff: 25 Metabolit e of tramadol l (test code = Detected ng/mL 69790-3) Tapentadol (test Not Cutoff: 25 Nucynta code = 22993-7) Detected ng/mL Axfosabeze-yjyl-iq Not Cutoff: 100 Metabolit e of tapentadol ucuronide (test Detected ng/mL code = 46632-3) Buprenorphine Not Cutoff: 5 Buprenex, Subo xone (test code = Detected ng/mL 97459-8) Norbuprenorphine Not Cutoff: 5 Metabolite of buprenorphine (test code = Detected ng/mL 60504-0) Norbuprenorphine Not Cutoff: 20 Metabolite of buprenorphine Glucuronide (test Detected ng/mL code = 45409-4) Benzodiazepine See Test detected the presence of Interp Urine (test Footnote alprazola m and two of code = 36897-5) itsmetabolit es (alpha-hydroxya lprazolam andalpha-hydrox yalprazolam glucuronide). S uspect use ofalprazolam wi thin the past three days. Hailey t detected the presence of zol pidem kcyule-5-dsmwhw ylicacid (metabolite of zolpidem) only. Suspect use of zolpidemwithin the past four d ays. ----ADDITIONAL INFORMATION---- T his test was de veloped and its performance characteristics determined by [facility] in a manner consistent with CLIArequirement s. This test has not been cleare d or approved bythe U.S. Food and Drug Administration. Alprazolam Urine Present Cutoff: 10 A Xanax (test code = ng/mL 29922-6) Alpha-Hydroxyalpra Present Cutoff: 10 A Metabolit e of Alprazolam zolam Urine (test ng/mL code = 98487-1) Alpha-Hydroxyalpra Present Cutoff: 50 A Metabolit e of Alprazolam zolam Glucuronide ng/mL Urine (test code = 80258-3) Chlordiazepoxide Not Cutoff: 10 Librium Urine (test code = Detected ng/mL 48861-4) Colbazam Urine Not Cutoff: 10 Frisium, Onfi (test code = Detected ng/mL 43123-6) N-Desmethylclobaza Not Cutoff: 200 Metabolit e of Clobazam m Urine (test code Detected ng/mL = 48580-4) Clonazepam Urine Not Cutoff: 10 Klonopin, R ivotril (test code = Detected ng/mL 55119-6) 7-Aminoclonazepam Not Cutoff: 10 Metabolite of Clonazepam Urine (test code = Detected ng/mL 18315-0) Diazepam Urine Not Cutoff: 10 Valium (test code = Detected ng/mL 51418-7) Nordiazepam Urine Not Cutoff: 10 Metabolite of Chlordiazepoxide, (test code = Detected ng/mL Diazepam, or Pr azepam. 45735-2) Flunitrazepam Not Cutoff: 10 Rohypnol Urine (test code = Detected ng/mL 97531-5) 7-Aminoflunitrazep Not Cutoff: 10 Metabolit e of Flunitrazepam am Urine (test Detected ng/mL code = 93493-0) FlUrinerazepam Not Cutoff: 10 Dalmane Urine (test code = Detected ng/mL 86147-4) 2-Hydroxy Ethyl Not Cutoff: 10 Metabolite o f Flurazepam Flurazepam Urine Detected ng/mL (test code = 44732-0) Lorazepam Urine Not Cutoff: 10 Ativan (test code = Detected ng/mL 45765-3) Lorazepam Not Cutoff: 50 Metabolite of L orazepam Glucuronide Urine Detected ng/mL (test code = 42939-4) Midazolam Urine Not Cutoff: 10 Versed (test code = Detected ng/mL 86682-9) Alpha-Hydroxy Not Cutoff: 10 Metabolite of Midazolam Midazolam Urine Detected ng/mL (test code = 55542-7) Oxazepam Urine Not Cutoff: 10 Serax; Also a metabolite of (test code = Detected ng/mL Chlordiazepoxid e, Diazepam, 04506-5) orTemazepam. Oxazepam Not Cutoff: 50 Metabolite of O xazepam Glucuronide Urine Detected ng/mL (test code = 22481-3) Prazepam Urine Not Cutoff: 10 Centrax (test code = Detected ng/mL 83947-3) Temazepam Urine Not Cutoff: 10 Restoril; Al so a metabolite of (test code = Detected ng/mL Diazepam. 23838-9) Temazepam Not Cutoff: 50 Metabolite of T emazepam Glucuronide Urine Detected ng/mL (test code = 18821-5) Triazolam Urine Not Cutoff: 10 Halcion (test code = Detected ng/mL 86774-5) Alpha-Hydroxy Not Cutoff: 10 Metabolite of Triazolam Triazolam Urine Detected ng/mL (test code = 19159-4) Zolpidem Urine Not Cutoff: 10 Ambien (test code = Detected ng/mL 34292-1) Zolpidem Present Cutoff: 10 A Metabolite of Z olpidem Alwru-3-Rppqzmhyni ng/mL Acid Urine (test code = 99845-0) Methamphetamine Not Cutoff: 100 Desoxyn (test code = Detected ng/mL 46250-1) Amphetamine (test Not Cutoff: 100 Dyanavel X R, Adzenys ER, code = 52329-0) Detected ng/mL Adderall, Vy vanse; Also ametabolite of methamphetamine 3,4-Methylenedioxy Not Cutoff: 100 methamphetamine Detected ng/mL (MDMA) (test code = 81384-8) 3,4-Methylenedioxy Not Cutoff: 100 -N-Ethylamphetamin Detected ng/mL e (MDEA) (test code = 21610-2) 3,4-Methylenedioxy Not Cutoff: 100 Also a me tabolite of MDMA amphetamine (MDA) Detected ng/mL and/or MDE A (test code = 84275-8) Ephedrine (test Not Cutoff: 100 code = 66316) Detected ng/mL Pseudoephedrine Present Cutoff: 100 A Sudafed (test code = ng/mL 54869) Phentermine (test Not Cutoff: 100 Adipex-P, Lomaira, Qsymia code = 36446-8) Detected ng/mL Phencyclidine Not Cutoff: 20 (PCP) (test code = Detected ng/mL 08957-9) Methylphenidate Not Cutoff: 20 Ritalin, Con certa (test code = Detected ng/mL 99911-9) Ritalinic acid Not Cutoff: 100 Metabolite of methylphenidate (test code = Detected ng/mL 02124) Stimulant See Test detected t he presence of Interpretation Footnote pseudoephedri ne. Suspect useof (test code = pseudoephedrine within the past 47555-2) three days. ----ADDITIONAL INFORMATION---- T his test was de veloped and its performance characteristics determined by [facility] in a manner consistent with CLIArequirement s. This test has not been cleare d or approved bythe U.S. Food and Drug Administration. Test Performed by:[facility] [id number] [place], [place] [address]Iuz Dir ronnie: Moe Guzman M.D. Ph.D.; CLIA# [id number] Patients Current NOT ---------ADDITIONAL Medications (test ANSWERED INFORMATIO N A code = 30592-9) ccuracy and completeness of declared medica tions onreports solely dependen t on information submitted bymarco a umaña. Lab Interpretation Abnormal (test code = 91853-6) [facility] [place] PlaneControlled Substance Monitoring Panel, [id number] 09:20:34 Test Item Value Reference Interpretation Comments Range Urine Creatinine 55.1 mg/dL (test code = 2161-8) Urine Specific 1.014 Clarence (test code = 5810-7) Urine Ph (test 6.2 code = 2756-5) Urine Oxidants Negative Cutoff: 200 (test code = mg/L 89177-5) Urine Comment Normal (test code = 58391-8) U Negative Cutoff: 200 Barbiturates-[place] ng/mL (test code = 99569-9) U Cocaine Lvl-[place] Negative Cutoff: 150 This coca ine immunoassay (test code = ng/mL targets benzoyl ecgonine 97224-4) theprimary meta bolite of cocaine. U THC-L[facility] (test See Cutoff: 50 A RESULT: Pre sumptive code = 64593-8) Footnote ng/mL PositiveThis immunoassay targets delta-9 tetrahydrocanna [...] code Not Cutoff: 25 Tylenol 3 = 46559-5) Detected ng/mL Ixaqfcg-5-jldr-glu Not Cutoff: 100 Metabolit e of codeine curonide (test Detected ng/mL code = 08010-6) Morphine (test Not Cutoff: 25 Gayle Mary, MS Contin; Also code = 30349-8) Detected ng/mL a minor meta bolite (10%) ofcodeine and c an be seen in low concentrati ons (<2,000ng/mL) w ith poppy seed ingestion. Bcayhyru-3-odor-gl Not Cutoff: 100 Metabolit e of morphine ucuronide (test Detected ng/mL code = 90175-3) 6-monoacetylmorphi Not Cutoff: 25 Metabolit e of heroin ne (test code = Detected ng/mL 96889-5) Hydrocodone (test Not Cutoff: 25 Lortab, No rco, Vicodin; Also a code = 25759-4) Detected ng/mL very minor m etabolite ofcodeine and impurity (< 1%) of oxycodone. Norhydrocodone Not Cutoff: 25 Metabolite of hydrocodone (test code = Detected ng/mL 78443-5) Dihydrocodeine Not Cutoff: 25 Metabolite of hydrocodone (test code = Detected ng/mL 38336-6) Hydromorphone Not Cutoff: 25 Dilaudid, Exal go; Also a (test code = Detected ng/mL metabolite of h ydrocodone and 87776-1) aminor (<5%) me tabolite of morphine. Wfbmusxxtrzmw-9-vv Not Cutoff: 100 Metabolit e of hydromorphone ta-glucuronide Detected ng/mL (test code = 38752-7) Oxycodone (test Present Cutoff: 25 A Endocet, Per cocet, Oxycontin code = 96555-9) ng/mL Noroxycodone (test Present Cutoff: 25 A Metabolit e of oxycodone code = 31260-7) ng/mL Oxymorphone (test Not Cutoff: 25 Numorphan, Opana; Also a code = 40863-4) Detected ng/mL metabolite o f oxycodone. Dbrvqiqpavw-5-fovp Not Cutoff: 100 Metabolit e of oxymorphone -glucuronide (test Detected ng/mL and/or na loxone (nornaloxone) code = 90959-0) Noroxymorphone Present Cutoff: 25 A Metabolite of oxymorphone (test code = ng/mL and/or naloxone (nornaloxone) 85861-0) Fentanyl (test Not Cutoff: 2 Actiq, Durage sic, Fentora code = 40900-6) Detected ng/mL Norfentanyl (test Not Cutoff: 2 Metabolite of fentanyl code = 35073-7) Detected ng/mL Meperidine (test Not Cutoff: 25 Demerol code = 76605-6) Detected ng/mL Normeperidine Not Cutoff: 25 Metabolite of meperidine (test code = Detected ng/mL 74134-3) Naloxone (test Not Cutoff: 25 Narcan code = 09696-4) Detected ng/mL Rsoudofe-2-ajzc-gl Not Cutoff: 100 Metabolit e of naloxone ucuronide (test Detected ng/mL code = 06703-9) U Methadone (test Not Cutoff: 25 Dolophine code = 33099-0) Detected ng/mL EDDP (test code = Not Cutoff: 25 Metabolite of methadone 73928-5) Detected ng/mL Propoxyphene (test Not Cutoff: 25 Darvon, D arvocet code = 57449-6) Detected ng/mL Norpropoxyphene Not Cutoff: 25 Metabolite o f propoxyphene (test code = Detected ng/mL 48391-5) Tramadol (test Not Cutoff: 25 Tradol, Ultra m, Ultracet code = 54036-5) Detected ng/mL O-desmethyltramado Not Cutoff: 25 Metabolit e of tramadol l (test code = Detected ng/mL 08094-5) Tapentadol (test Not Cutoff: 25 Nucynta code = 34450-9) Detected ng/mL Gkizkgqdjk-sryv-hl Not Cutoff: 100 Metabolit e of tapentadol ucuronide (test Detected ng/mL code = 02201-8) Buprenorphine Not Cutoff: 5 Buprenex, Subo xone (test code = Detected ng/mL 50277-5) Norbuprenorphine Not Cutoff: 5 Metabolite of buprenorphine (test code = Detected ng/mL 05318-3) Norbuprenorphine Not Cutoff: 20 Metabolite of buprenorphine Glucuronide (test Detected ng/mL code = 75785-0) Benzodiazepine See Test detected the presence of Interp Urine (test Footnote alprazola m and two of code = 80530-2) itsmetabolit es (alpha-hydroxya lprazolam andalpha-hydrox yalprazolam glucuronide). S uspect use ofalprazolam wi thin the past three days. Hailey t detected the presence of zol pidem yhohdl-5-nvxggn ylicacid (metabolite of zolpidem) only. Suspect use of zolpidemwithin the past four d ays. ----ADDITIONAL INFORMATION---- T his test was de veloped and its performance characteristics determined by [facility] in a manner consistent with CLIArequirement s. This test has not been cleare d or approved bythe U.S. Food and Drug Administration. Alprazolam Urine Present Cutoff: 10 A Xanax (test code = ng/mL 56484-9) Alpha-Hydroxyalpra Present Cutoff: 10 A Metabolit e of Alprazolam zolam Urine (test ng/mL code = 80112-0) Alpha-Hydroxyalpra Present Cutoff: 50 A Metabolit e of Alprazolam zolam Glucuronide ng/mL Urine (test code = 15920-1) Chlordiazepoxide Not Cutoff: 10 Librium Urine (test code = Detected ng/mL 66403-0) Colbazam Urine Not Cutoff: 10 Frisium, Onfi (test code = Detected ng/mL 70870-5) N-Desmethylclobaza Not Cutoff: 200 Metabolit e of Clobazam m Urine (test code Detected ng/mL = 68074-0) Clonazepam Urine Not Cutoff: 10 Klonopin, R ivotril (test code = Detected ng/mL 99707-0) 7-Aminoclonazepam Not Cutoff: 10 Metabolite of Clonazepam Urine (test code = Detected ng/mL 69229-9) Diazepam Urine Not Cutoff: 10 Valium (test code = Detected ng/mL 14473-6) Nordiazepam Urine Not Cutoff: 10 Metabolite of Chlordiazepoxide, (test code = Detected ng/mL Diazepam, or Pr azepam. 05016-1) Flunitrazepam Not Cutoff: 10 Rohypnol Urine (test code = Detected ng/mL 23599-8) 7-Aminoflunitrazep Not Cutoff: 10 Metabolit e of Flunitrazepam am Urine (test Detected ng/mL code = 25124-7) FlUrinerazepam Not Cutoff: 10 Dalmane Urine (test code = Detected ng/mL 76803-8) 2-Hydroxy Ethyl Not Cutoff: 10 Metabolite o f Flurazepam Flurazepam Urine Detected ng/mL (test code = 39135-5) Lorazepam Urine Not Cutoff: 10 Ativan (test code = Detected ng/mL 10841-7) Lorazepam Not Cutoff: 50 Metabolite of L orazepam Glucuronide Urine Detected ng/mL (test code = 10718-8) Midazolam Urine Not Cutoff: 10 Versed (test code = Detected ng/mL 67157-4) Alpha-Hydroxy Not Cutoff: 10 Metabolite of Midazolam Midazolam Urine Detected ng/mL (test code = 64174-3) Oxazepam Urine Not Cutoff: 10 Serax; Also a metabolite of (test code = Detected ng/mL Chlordiazepoxid e, Diazepam, 10949-6) orTemazepam. Oxazepam Not Cutoff: 50 Metabolite of O xazepam Glucuronide Urine Detected ng/mL (test code = 13939-5) Prazepam Urine Not Cutoff: 10 Centrax (test code = Detected ng/mL 06338-6) Temazepam Urine Not Cutoff: 10 Restoril; Al so a metabolite of (test code = Detected ng/mL Diazepam. 85060-6) Temazepam Not Cutoff: 50 Metabolite of T emazepam Glucuronide Urine Detected ng/mL (test code = 12044-4) Triazolam Urine Not Cutoff: 10 Halcion (test code = Detected ng/mL 30283-0) Alpha-Hydroxy Not Cutoff: 10 Metabolite of Triazolam Triazolam Urine Detected ng/mL (test code = 85808-7) Zolpidem Urine Not Cutoff: 10 Ambien (test code = Detected ng/mL 59777-1) Zolpidem Present Cutoff: 10 A Metabolite of Z olpidem Hvvdh-3-Pqpfqkbzdf ng/mL Acid Urine (test code = 03394-6) Methamphetamine Not Cutoff: 100 Desoxyn (test code = Detected ng/mL 38536-8) Amphetamine (test Not Cutoff: 100 Dyanavel X R, Adzenys ER, code = 00850-8) Detected ng/mL Adderall, Vy vanse; Also ametabolite of methamphetamine 3,4-Methylenedioxy Not Cutoff: 100 methamphetamine Detected ng/mL (MDMA) (test code = 71568-5) 3,4-Methylenedioxy Not Cutoff: 100 -N-Ethylamphetamin Detected ng/mL e (MDEA) (test code = 58035-0) 3,4-Methylenedioxy Not Cutoff: 100 Also a me tabolite of MDMA amphetamine (MDA) Detected ng/mL and/or MDE A (test code = 73688-6) Ephedrine (test Not Cutoff: 100 code = 02976) Detected ng/mL Pseudoephedrine Present Cutoff: 100 A Sudafed (test code = ng/mL 34341) Phentermine (test Not Cutoff: 100 Adipex-P, Lomaira, Qsymia code = 70723-5) Detected ng/mL Phencyclidine Not Cutoff: 20 (PCP) (test code = Detected ng/mL 46247-2) Methylphenidate Not Cutoff: 20 Ritalin, Con certa (test code = Detected ng/mL 98092-0) Ritalinic acid Not Cutoff: 100 Metabolite of methylphenidate (test code = Detected ng/mL 37054) Stimulant See Test detected t he presence of Interpretation Footnote pseudoephedri ne. Suspect useof (test code = pseudoephedrine within the past 63058-8) three days. ----ADDITIONAL INFORMATION---- T his test was de veloped and its performance characteristics determined by [facility] in a manner consistent with CLJasminequirement s. This test has not been cleare d or approved bythe U.S. Food and Drug Administration. Test Performed by:[facility] [address] [place], [place] [address]Gev Dir ronnie: Moe Guzman M.D. Ph.D.; CLIA# [id number] Patients Current NOT ---------ADDITIONAL Medications (test ANSWERED INFORMATIO N A code = 19963-6) ccuracy and completeness of declared medica tions onreports solely dependen t on information submitted byshanei leeroy. Lab Interpretation Abnormal (test code = 64001-6) [facility] Mahan[place] PlaneControlled Substance Monitoring Panel, [id number] 09:20:34 Test Item Value Reference Interpretation Comments Range Urine Creatinine 55.1 mg/dL (test code = 2161-8) Urine Specific 1.014 Clarence (test code = 5810-7) Urine Ph (test 6.2 code = 2756-5) Urine Oxidants Negative Cutoff: 200 (test code = mg/L 87883-7) Urine Comment Normal (test code = 89988-1) U Negative Cutoff: 200 Barbiturates-[place] ng/mL (test code = 13049-6) U Cocaine [facility] Negative Cutoff: 150 This coca ine immunoassay (test code = ng/mL targets benzoyl ecgonine 57374-6) theprimary meta bolite of cocaine. U THC-Luu (test See Cutoff: 50 A RESULT: Pre sumptive code = 57555-5) Footnote ng/mL PositiveThis immunoassay targets delta-9 tetrahydrocanna [...] code Not Cutoff: 25 Tylenol 3 = 97642-7) Detected ng/mL Tuphmpx-7-rncb-glu Not Cutoff: 100 Metabolit e of codeine curonide (test Detected ng/mL code = 31377-1) Morphine (test Not Cutoff: 25 Gayle Mary n, MS Contin; Also code = 10280-5) Detected ng/mL a minor meta bolite (10%) ofcodeine and c an be seen in low concentrati ons (<2,000ng/mL) w ith poppy seed ingestion. Tnqurota-9-ecjp-gl Not Cutoff: 100 Metabolit e of morphine ucuronide (test Detected ng/mL code = 24670-8) 6-monoacetylmorphi Not Cutoff: 25 Metabolit e of heroin ne (test code = Detected ng/mL 77069-8) Hydrocodone (test Not Cutoff: 25 Lortab, No rco, Vicodin; Also a code = 16139-2) Detected ng/mL very minor m etabolite ofcodeine and impurity (< 1%) of oxycodone. Norhydrocodone Not Cutoff: 25 Metabolite of hydrocodone (test code = Detected ng/mL 32638-9) Dihydrocodeine Not Cutoff: 25 Metabolite of hydrocodone (test code = Detected ng/mL 47898-4) Hydromorphone Not Cutoff: 25 Dilaudid, Exal go; Also a (test code = Detected ng/mL metabolite of h ydrocodone and 34057-8) aminor (<5%) me tabolite of morphine. Mwktzzlvhuedj-4-zj Not Cutoff: 100 Metabolit e of hydromorphone ta-glucuronide Detected ng/mL (test code = 67792-7) Oxycodone (test Present Cutoff: 25 A Endocet, Per cocet, Oxycontin code = 21226-3) ng/mL Noroxycodone (test Present Cutoff: 25 A Metabolit e of oxycodone code = 26895-7) ng/mL Oxymorphone (test Not Cutoff: 25 Numorphan, Opana; Also a code = 39232-7) Detected ng/mL metabolite o f oxycodone. Hotgpftokdp-0-eyua Not Cutoff: 100 Metabolit e of oxymorphone -glucuronide (test Detected ng/mL and/or na loxone (nornaloxone) code = 09801-5) Noroxymorphone Present Cutoff: 25 A Metabolite of oxymorphone (test code = ng/mL and/or naloxone (nornaloxone) 11910-5) Fentanyl (test Not Cutoff: 2 Actiq, Durage sic, Fentora code = 27579-9) Detected ng/mL Norfentanyl (test Not Cutoff: 2 Metabolite of fentanyl code = 06304-8) Detected ng/mL Meperidine (test Not Cutoff: 25 Demerol code = 83455-6) Detected ng/mL Normeperidine Not Cutoff: 25 Metabolite of meperidine (test code = Detected ng/mL 06131-0) Naloxone (test Not Cutoff: 25 Narcan code = 92770-2) Detected ng/mL Ktgxcyzl-2-vwcm-gl Not Cutoff: 100 Metabolit e of naloxone ucuronide (test Detected ng/mL code = 20335-2) U Methadone (test Not Cutoff: 25 Dolophine code = 36002-2) Detected ng/mL EDDP (test code = Not Cutoff: 25 Metabolite of methadone 36603-3) Detected ng/mL Propoxyphene (test Not Cutoff: 25 Darvon, D arvocet code = 04983-7) Detected ng/mL Norpropoxyphene Not Cutoff: 25 Metabolite o f propoxyphene (test code = Detected ng/mL 64469-0) Tramadol (test Not Cutoff: 25 Tradol, Ultra m, Ultracet code = 73947-6) Detected ng/mL O-desmethyltramado Not Cutoff: 25 Metabolit e of tramadol l (test code = Detected ng/mL 01825-0) Tapentadol (test Not Cutoff: 25 Nucynta code = 47600-6) Detected ng/mL Lgthyohvyl-wxhv-ph Not Cutoff: 100 Metabolit e of tapentadol ucuronide (test Detected ng/mL code = 35559-2) Buprenorphine Not Cutoff: 5 Buprenex, Subo xone (test code = Detected ng/mL 71941-7) Norbuprenorphine Not Cutoff: 5 Metabolite of buprenorphine (test code = Detected ng/mL 00115-2) Norbuprenorphine Not Cutoff: 20 Metabolite of buprenorphine Glucuronide (test Detected ng/mL code = 42750-6) Benzodiazepine See Test detected the presence of Interp Urine (test Footnote alprazola m and two of code = 59482-2) itsmetabolit es (alpha-hydroxya lprazolam andalpha-hydrox yalprazolam glucuronide). S uspect use ofalprazolam wi thin the past three days. Hailey t detected the presence of zol pidem leysnh-1-tyxcxs ylicacid (metabolite of zolpidem) only. Suspect use of zolpidemwithin the past four d ays. ----ADDITIONAL INFORMATION---- T his test was de veloped and its performance characteristics determined by [facility] in a manner consistent with CLIArequirement s. This test has not been cleare d or approved bythe U.S. Food and Drug Administration. Alprazolam Urine Present Cutoff: 10 A Xanax (test code = ng/mL 20619-3) Alpha-Hydroxyalpra Present Cutoff: 10 A Metabolit e of Alprazolam zolam Urine (test ng/mL code = 50435-2) Alpha-Hydroxyalpra Present Cutoff: 50 A Metabolit e of Alprazolam zolam Glucuronide ng/mL Urine (test code = 22533-5) Chlordiazepoxide Not Cutoff: 10 Librium Urine (test code = Detected ng/mL 93880-5) Colbazam Urine Not Cutoff: 10 Frisium, Onfi (test code = Detected ng/mL 41323-3) N-Desmethylclobaza Not Cutoff: 200 Metabolit e of Clobazam m Urine (test code Detected ng/mL = 78081-9) Clonazepam Urine Not Cutoff: 10 Klonopin, R ivotril (test code = Detected ng/mL 49777-9) 7-Aminoclonazepam Not Cutoff: 10 Metabolite of Clonazepam Urine (test code = Detected ng/mL 75930-1) Diazepam Urine Not Cutoff: 10 Valium (test code = Detected ng/mL 34854-2) Nordiazepam Urine Not Cutoff: 10 Metabolite of Chlordiazepoxide, (test code = Detected ng/mL Diazepam, or Pr azepam. 46756-9) Flunitrazepam Not Cutoff: 10 Rohypnol Urine (test code = Detected ng/mL 29203-7) 7-Aminoflunitrazep Not Cutoff: 10 Metabolit e of Flunitrazepam am Urine (test Detected ng/mL code = 42129-8) FlUrinerazepam Not Cutoff: 10 Dalmane Urine (test code = Detected ng/mL 69191-3) 2-Hydroxy Ethyl Not Cutoff: 10 Metabolite o f Flurazepam Flurazepam Urine Detected ng/mL (test code = 38670-3) Lorazepam Urine Not Cutoff: 10 Ativan (test code = Detected ng/mL 97462-5) Lorazepam Not Cutoff: 50 Metabolite of L orazepam Glucuronide Urine Detected ng/mL (test code = 75624-6) Midazolam Urine Not Cutoff: 10 Versed (test code = Detected ng/mL 65789-8) Alpha-Hydroxy Not Cutoff: 10 Metabolite of Midazolam Midazolam Urine Detected ng/mL (test code = 90218-7) Oxazepam Urine Not Cutoff: 10 Serax; Also a metabolite of (test code = Detected ng/mL Chlordiazepoxid e, Diazepam, 82286-1) orTemazepam. Oxazepam Not Cutoff: 50 Metabolite of O xazepam Glucuronide Urine Detected ng/mL (test code = 24479-2) Prazepam Urine Not Cutoff: 10 Centrax (test code = Detected ng/mL ) Temazepam Urine Not Cutoff: 10 Restoril; Al so a metabolite of (test code = Detected ng/mL Diazepam. ) Temazepam Not Cutoff: 50 Metabolite of T emazepam Glucuronide Urine Detected ng/mL (test code = 66381-9) Triazolam Urine Not Cutoff: 10 Halcion (test code = Detected ng/mL ) Alpha-Hydroxy Not Cutoff: 10 Metabolite of Triazolam Triazolam Urine Detected ng/mL (test code = 33233-0) Zolpidem Urine Not Cutoff: 10 Ambien (test code = Detected ng/mL 03828-7) Zolpidem Present Cutoff: 10 A Metabolite of Z olpidem Pbzzx-1-Chqcrmxhar ng/mL Acid Urine (test code = 76310-0) Methamphetamine Not Cutoff: 100 Desoxyn (test code = Detected ng/mL ) Amphetamine (test Not Cutoff: 100 Dyanavel X R, Adzenys ER, code = 02372-9) Detected ng/mL Adderall, Vy vanse; Also ametabolite of methamphetamine 3,4-Methylenedioxy Not Cutoff: 100 methamphetamine Detected ng/mL (MDMA) (test code = 21086-5) 3,4-Methylenedioxy Not Cutoff: 100 -N-Ethylamphetamin Detected ng/mL e (MDEA) (test code = 21040-0) 3,4-Methylenedioxy Not Cutoff: 100 Also a me tabolite of MDMA amphetamine (MDA) Detected ng/mL and/or MDE A (test code = 37880-2) Ephedrine (test Not Cutoff: 100 code = 83340) Detected ng/mL Pseudoephedrine Present Cutoff: 100 A Sudafed (test code = ng/mL 15933) Phentermine (test Not Cutoff: 100 Adipex-P, Lomaira, Qsymia code = 36741-7) Detected ng/mL Phencyclidine Not Cutoff: 20 (PCP) (test code = Detected ng/mL ) Methylphenidate Not Cutoff: 20 Ritalin, Con certa (test code = Detected ng/mL 32181-0) Ritalinic acid Not Cutoff: 100 Metabolite of methylphenidate (test code = Detected ng/mL 38897) Stimulant See Test detected t he presence of Interpretation Footnote pseudoephedri ne. Suspect useof (test code = pseudoephedrine within the past 54101-2) three days. ----ADDITIONAL INFORMATION---- T his test was de veloped and its performance characteristics determined by [facility] in a manner consistent with CLIArequirement s. This test has not been cleare d or approved bythe U.S. Food and Drug Administration. Test Performed by:[facility] [id number] [place], [place] [address]Qbr Dir ronnie: Moe Guzman M.D. Ph.D.; CLIA# [id number] Patients Current NOT ---------ADDITIONAL Medications (test ANSWERED INFORMATIO N A code = 99042-4) ccuracy and completeness of declared medica tions onreports solely dependen t on information submitted bymarco a umaña. Lab Interpretation Abnormal (test code = 44983-3) [facility] [place] PlaneControlled Substance Monitoring Panel, [id number] 09:20:34 Test Item Value Reference Interpretation Comments Range Urine Creatinine 55.1 mg/dL (test code = 2161-8) Urine Specific 1.014 Clarence (test code = 5810-7) Urine Ph (test 6.2 code = 2756-5) Urine Oxidants Negative Cutoff: 200 (test code = mg/L 29616-0) Urine Comment Normal (test code = 16002-7) U Negative Cutoff: 200 Barbiturates-[place] ng/mL (test code = 33842-4) U Cocaine l-[place] Negative Cutoff: 150 This coca ine immunoassay (test code = ng/mL targets benzoyl ecgonine 31541-1) theprimary meta bolite of cocaine. [facility] ([facility] See Cutoff: 50 A RESULT: Pre sumptive code = 68153-7) Footnote ng/mL PositiveThis immunoassay targets delta-9 tetrahydrocanna [...] code Not Cutoff: 25 Tylenol 3 = 93482-2) Detected ng/mL Tkjcbnw-2-vngm-glu Not Cutoff: 100 Metabolit e of codeine curonide (test Detected ng/mL code = 14614-9) Morphine (test Not Cutoff: 25 Gayle Mary n, MS Contin; Also code = 47514-0) Detected ng/mL a minor meta bolite (10%) ofcodeine and c an be seen in low concentrati ons (<2,000ng/mL) w ith poppy seed ingestion. Iqybwpyz-7-udus-gl Not Cutoff: 100 Metabolit e of morphine ucuronide (test Detected ng/mL code = 33929-6) 6-monoacetylmorphi Not Cutoff: 25 Metabolit e of heroin ne (test code = Detected ng/mL 29526-5) Hydrocodone (test Not Cutoff: 25 Lortab, No rco, Vicodin; Also a code = 41252-7) Detected ng/mL very minor m etabolite ofcodeine and impurity (< 1%) of oxycodone. Norhydrocodone Not Cutoff: 25 Metabolite of hydrocodone (test code = Detected ng/mL 92730-5) Dihydrocodeine Not Cutoff: 25 Metabolite of hydrocodone (test code = Detected ng/mL 25682-4) Hydromorphone Not Cutoff: 25 Dilaudid, Exal go; Also a (test code = Detected ng/mL metabolite of h ydrocodone and 73079-6) aminor (<5%) me tabolite of morphine. Llkjfpawyrkvr-3-nb Not Cutoff: 100 Metabolit e of hydromorphone ta-glucuronide Detected ng/mL (test code = 91989-6) Oxycodone (test Present Cutoff: 25 A Endocet, Per cocet, Oxycontin code = 29260-2) ng/mL Noroxycodone (test Present Cutoff: 25 A Metabolit e of oxycodone code = 38760-0) ng/mL Oxymorphone (test Not Cutoff: 25 Numorphan, Opana; Also a code = 17252-3) Detected ng/mL metabolite o f oxycodone. Kdozhlmeqcg-5-vgsm Not Cutoff: 100 Metabolit e of oxymorphone -glucuronide (test Detected ng/mL and/or na loxone (nornaloxone) code = 22186-5) Noroxymorphone Present Cutoff: 25 A Metabolite of oxymorphone (test code = ng/mL and/or naloxone (nornaloxone) 84955-5) Fentanyl (test Not Cutoff: 2 Actiq, Durage sic, Fentora code = 35010-8) Detected ng/mL Norfentanyl (test Not Cutoff: 2 Metabolite of fentanyl code = 20845-9) Detected ng/mL Meperidine (test Not Cutoff: 25 Demerol code = 31960-0) Detected ng/mL Normeperidine Not Cutoff: 25 Metabolite of meperidine (test code = Detected ng/mL 44178-5) Naloxone (test Not Cutoff: 25 Narcan code = 56540-9) Detected ng/mL Uenmdzso-2-xaqz-gl Not Cutoff: 100 Metabolit e of naloxone ucuronide (test Detected ng/mL code = 63680-1) U Methadone (test Not Cutoff: 25 Dolophine code = 16186-4) Detected ng/mL EDDP (test code = Not Cutoff: 25 Metabolite of methadone 41434-3) Detected ng/mL Propoxyphene (test Not Cutoff: 25 Darvon, D arvocet code = 26455-6) Detected ng/mL Norpropoxyphene Not Cutoff: 25 Metabolite o f propoxyphene (test code = Detected ng/mL 26061-9) Tramadol (test Not Cutoff: 25 Tradol, Ultra m, Ultracet code = 35556-9) Detected ng/mL O-desmethyltramado Not Cutoff: 25 Metabolit e of tramadol l (test code = Detected ng/mL 35518-3) Tapentadol (test Not Cutoff: 25 Nucynta code = 38701-8) Detected ng/mL Mbxcjlrnjw-hqnj-rx Not Cutoff: 100 Metabolit e of tapentadol ucuronide (test Detected ng/mL code = 92746-3) Buprenorphine Not Cutoff: 5 Buprenex, Subo xone (test code = Detected ng/mL 60465-8) Norbuprenorphine Not Cutoff: 5 Metabolite of buprenorphine (test code = Detected ng/mL 89508-1) Norbuprenorphine Not Cutoff: 20 Metabolite of buprenorphine Glucuronide (test Detected ng/mL code = 45934-4) Benzodiazepine See Test detected the presence of Interp Urine (test Footnote alprazola m and two of code = 59420-9) itsmetabolit es (alpha-hydroxya lprazolam andalpha-hydrox yalprazolam glucuronide). S uspect use ofalprazolam wi thin the past three days. Hailey t detected the presence of zol pidem iihjtf-1-xpffig ylicacid (metabolite of zolpidem) only. Suspect use of zolpidemwithin the past four d ays. ----ADDITIONAL INFORMATION---- T his test was de veloped and its performance characteristics determined by [facility] in a manner consistent with CLIArequirement s. This test has not been cleare d or approved bythe U.S. Food and Drug Administration. Alprazolam Urine Present Cutoff: 10 A Xanax (test code = ng/mL 11089-1) Alpha-Hydroxyalpra Present Cutoff: 10 A Metabolit e of Alprazolam zolam Urine (test ng/mL code = 53146-1) Alpha-Hydroxyalpra Present Cutoff: 50 A Metabolit e of Alprazolam zolam Glucuronide ng/mL Urine (test code = 59772-3) Chlordiazepoxide Not Cutoff: 10 Librium Urine (test code = Detected ng/mL 69894-6) Colbazam Urine Not Cutoff: 10 Frisium, Onfi (test code = Detected ng/mL 15299-2) N-Desmethylclobaza Not Cutoff: 200 Metabolit e of Clobazam m Urine (test code Detected ng/mL = 55351-2) Clonazepam Urine Not Cutoff: 10 Klonopin, R ivotril (test code = Detected ng/mL 53887-4) 7-Aminoclonazepam Not Cutoff: 10 Metabolite of Clonazepam Urine (test code = Detected ng/mL 94504-2) Diazepam Urine Not Cutoff: 10 Valium (test code = Detected ng/mL 77936-8) Nordiazepam Urine Not Cutoff: 10 Metabolite of Chlordiazepoxide, (test code = Detected ng/mL Diazepam, or Pr azepam. 25021-7) Flunitrazepam Not Cutoff: 10 Rohypnol Urine (test code = Detected ng/mL 09536-7) 7-Aminoflunitrazep Not Cutoff: 10 Metabolit e of Flunitrazepam am Urine (test Detected ng/mL code = 18274-5) FlUrinerazepam Not Cutoff: 10 Dalmane Urine (test code = Detected ng/mL 93627-8) 2-Hydroxy Ethyl Not Cutoff: 10 Metabolite o f Flurazepam Flurazepam Urine Detected ng/mL (test code = 09391-6) Lorazepam Urine Not Cutoff: 10 Ativan (test code = Detected ng/mL 93618-3) Lorazepam Not Cutoff: 50 Metabolite of L orazepam Glucuronide Urine Detected ng/mL (test code = 58783-1) Midazolam Urine Not Cutoff: 10 Versed (test code = Detected ng/mL 65282-2) Alpha-Hydroxy Not Cutoff: 10 Metabolite of Midazolam Midazolam Urine Detected ng/mL (test code = 79581-1) Oxazepam Urine Not Cutoff: 10 Serax; Also a metabolite of (test code = Detected ng/mL Chlordiazepoxid e, Diazepam, 08647-5) orTemazepam. Oxazepam Not Cutoff: 50 Metabolite of O xazepam Glucuronide Urine Detected ng/mL (test code = 81064-3) Prazepam Urine Not Cutoff: 10 Centrax (test code = Detected ng/mL 90328-4) Temazepam Urine Not Cutoff: 10 Restoril; Al so a metabolite of (test code = Detected ng/mL Diazepam. 28214-8) Temazepam Not Cutoff: 50 Metabolite of T emazepam Glucuronide Urine Detected ng/mL (test code = 28411-2) Triazolam Urine Not Cutoff: 10 Halcion (test code = Detected ng/mL 76951-7) Alpha-Hydroxy Not Cutoff: 10 Metabolite of Triazolam Triazolam Urine Detected ng/mL (test code = 88625-7) Zolpidem Urine Not Cutoff: 10 Ambien (test code = Detected ng/mL 65398-9) Zolpidem Present Cutoff: 10 A Metabolite of Z olpidem Fchhu-6-Egtbsxxneo ng/mL Acid Urine (test code = 71254-5) Methamphetamine Not Cutoff: 100 Desoxyn (test code = Detected ng/mL 93548-4) Amphetamine (test Not Cutoff: 100 Dyanavel X R, Adzenys ER, code = 28206-7) Detected ng/mL Adderall, Vy vanse; Also ametabolite of methamphetamine 3,4-Methylenedioxy Not Cutoff: 100 methamphetamine Detected ng/mL (MDMA) (test code = 72976-7) 3,4-Methylenedioxy Not Cutoff: 100 -N-Ethylamphetamin Detected ng/mL e (MDEA) (test code = 39398-0) 3,4-Methylenedioxy Not Cutoff: 100 Also a me tabolite of MDMA amphetamine (MDA) Detected ng/mL and/or MDE A (test code = 12598-0) Ephedrine (test Not Cutoff: 100 code = 46587) Detected ng/mL Pseudoephedrine Present Cutoff: 100 A Sudafed (test code = ng/mL 23859) Phentermine (test Not Cutoff: 100 Adipex-P, Lomaira, Qsymia code = 92432-9) Detected ng/mL Phencyclidine Not Cutoff: 20 (PCP) (test code = Detected ng/mL 13865-3) Methylphenidate Not Cutoff: 20 Ritalin, Con certa (test code = Detected ng/mL 45156-9) Ritalinic acid Not Cutoff: 100 Metabolite of methylphenidate (test code = Detected ng/mL ) Stimulant See Test detected t he presence of Interpretation Footnote pseudoephedri ne. Suspect useof (test code = pseudoephedrine within the past 39144-6) three days. ----ADDITIONAL INFORMATION---- T his test was de veloped and its performance characteristics determined by [facility] in a manner consistent with CLIArequirement s. This test has not been cleare d or approved bythe U.S. Food and Drug Administration. Test Performed by:[facility] [id number] [place], [place] [address]Zbn Dir ronnie: Moe Guzman M.D. Ph.D.; CLIA# [id number] Patients Current NOT ---------ADDITIONAL Medications (test ANSWERED INFORMATIO N A code = 30996-7) ccuracy and completeness of declared medica tions onreports solely dependen t on information submitted bycli ent. Lab Interpretation Abnormal (test code = 73178-9) [facility] [place] PlaneControlled Substance Monitoring Panel, [id number] 09:20:34 Test Item Value Reference Interpretation Comments Range Urine Creatinine 55.1 mg/dL (test code = 2161-8) Urine Specific 1.014 Clarence (test code = 5810-7) Urine Ph (test 6.2 code = 2756-5) Urine Oxidants Negative Cutoff: 200 (test code = mg/L 28483-1) Urine Comment Normal (test code = 54351-6) U Negative Cutoff: 200 Barbiturates-[place] ng/mL (test code = 03114-8) U Cocaine Lvl-[place] Negative Cutoff: 150 This coca ine immunoassay (test code = ng/mL targets benzoyl ecgonine 47187-6) theprimary meta bolite of cocaine. U THC-[place] (test See Cutoff: 50 A RESULT: Pre sumptive code = 55514-8) Footnote ng/mL PositiveThis immunoassay targets delta-9 tetrahydrocanna [...] code Not Cutoff: 25 Tylenol 3 = 63929-3) Detected ng/mL Mppkjzf-1-jyxw-glu Not Cutoff: 100 Metabolit e of codeine curonide (test Detected ng/mL code = 67605-1) Morphine (test Not Cutoff: 25 Avinza, Gayle n, MS Contin; Also code = 59418-5) Detected ng/mL a minor meta bolite (10%) ofcodeine and c an be seen in low concentrati ons (<2,000ng/mL) w ith poppy seed ingestion. Iwjrcbkm-7-wzya-gl Not Cutoff: 100 Metabolit e of morphine ucuronide (test Detected ng/mL code = 30775-1) 6-monoacetylmorphi Not Cutoff: 25 Metabolit e of heroin ne (test code = Detected ng/mL 48750-6) Hydrocodone (test Not Cutoff: 25 Lortab, No rco, Vicodin; Also a code = 01822-8) Detected ng/mL very minor m etabolite ofcodeine and impurity (< 1%) of oxycodone. Norhydrocodone Not Cutoff: 25 Metabolite of hydrocodone (test code = Detected ng/mL 32431-6) Dihydrocodeine Not Cutoff: 25 Metabolite of hydrocodone (test code = Detected ng/mL 47913-4) Hydromorphone Not Cutoff: 25 Dilaudid, Exal go; Also a (test code = Detected ng/mL metabolite of h ydrocodone and 06560-1) aminor (<5%) me tabolite of morphine. Kmafpgtxcuyva-3-nf Not Cutoff: 100 Metabolit e of hydromorphone ta-glucuronide Detected ng/mL (test code = 55209-6) Oxycodone (test Present Cutoff: 25 A Endocet, Per cocet, Oxycontin code = 75809-4) ng/mL Noroxycodone (test Present Cutoff: 25 A Metabolit e of oxycodone code = 72387-4) ng/mL Oxymorphone (test Not Cutoff: 25 Numorphan, Opana; Also a code = 05505-0) Detected ng/mL metabolite o f oxycodone. Kgwignilgyk-1-lxtx Not Cutoff: 100 Metabolit e of oxymorphone -glucuronide (test Detected ng/mL and/or na loxone (nornaloxone) code = 95975-3) Noroxymorphone Present Cutoff: 25 A Metabolite of oxymorphone (test code = ng/mL and/or naloxone (nornaloxone) 01270-7) Fentanyl (test Not Cutoff: 2 Actiq, Durage sic, Fentora code = 97280-6) Detected ng/mL Norfentanyl (test Not Cutoff: 2 Metabolite of fentanyl code = 94896-6) Detected ng/mL Meperidine (test Not Cutoff: 25 Demerol code = 85715-4) Detected ng/mL Normeperidine Not Cutoff: 25 Metabolite of meperidine (test code = Detected ng/mL 77994-6) Naloxone (test Not Cutoff: 25 Narcan code = 32278-6) Detected ng/mL Zpnjetkm-6-evde-gl Not Cutoff: 100 Metabolit e of naloxone ucuronide (test Detected ng/mL code = 99190-6) U Methadone (test Not Cutoff: 25 Dolophine code = 90388-1) Detected ng/mL EDDP (test code = Not Cutoff: 25 Metabolite of methadone 99330-4) Detected ng/mL Propoxyphene (test Not Cutoff: 25 Darvon, D arvocet code = 72283-2) Detected ng/mL Norpropoxyphene Not Cutoff: 25 Metabolite o f propoxyphene (test code = Detected ng/mL 83669-8) Tramadol (test Not Cutoff: 25 Tradol, Ultra m, Ultracet code = 25092-7) Detected ng/mL O-desmethyltramado Not Cutoff: 25 Metabolit e of tramadol l (test code = Detected ng/mL 27069-1) Tapentadol (test Not Cutoff: 25 Nucynta code = 76808-1) Detected ng/mL Tnrqocptyo-hwjy-ms Not Cutoff: 100 Metabolit e of tapentadol ucuronide (test Detected ng/mL code = 95195-8) Buprenorphine Not Cutoff: 5 Buprenex, Subo xone (test code = Detected ng/mL 44959-9) Norbuprenorphine Not Cutoff: 5 Metabolite of buprenorphine (test code = Detected ng/mL 19147-1) Norbuprenorphine Not Cutoff: 20 Metabolite of buprenorphine Glucuronide (test Detected ng/mL code = 89173-2) Benzodiazepine See Test detected the presence of Interp Urine (test Footnote alprazola m and two of code = 36363-3) itsmetabolit es (alpha-hydroxya lprazolam andalpha-hydrox yalprazolam glucuronide). S uspect use ofalprazolam wi thin the past three days. Hailey t detected the presence of zol pidem qajbkl-5-pujhpw ylicacid (metabolite of zolpidem) only. Suspect use of zolpidemwithin the past four d ays. ----ADDITIONAL INFORMATION---- T his test was de veloped and its performance characteristics determined by [facility] in a manner consistent with CLIArequirement s. This test has not been cleare d or approved bythe U.S. Food and Drug Administration. Alprazolam Urine Present Cutoff: 10 A Xanax (test code = ng/mL 24362-2) Alpha-Hydroxyalpra Present Cutoff: 10 A Metabolit e of Alprazolam zolam Urine (test ng/mL code = 90680-2) Alpha-Hydroxyalpra Present Cutoff: 50 A Metabolit e of Alprazolam zolam Glucuronide ng/mL Urine (test code = 38676-6) Chlordiazepoxide Not Cutoff: 10 Librium Urine (test code = Detected ng/mL 96596-5) Colbazam Urine Not Cutoff: 10 Frisium, Onfi (test code = Detected ng/mL 33148-5) N-Desmethylclobaza Not Cutoff: 200 Metabolit e of Clobazam m Urine (test code Detected ng/mL = 88862-7) Clonazepam Urine Not Cutoff: 10 Klonopin, R ivotril (test code = Detected ng/mL 75430-8) 7-Aminoclonazepam Not Cutoff: 10 Metabolite of Clonazepam Urine (test code = Detected ng/mL 63978-1) Diazepam Urine Not Cutoff: 10 Valium (test code = Detected ng/mL 09857-1) Nordiazepam Urine Not Cutoff: 10 Metabolite of Chlordiazepoxide, (test code = Detected ng/mL Diazepam, or Pr azepam. 87324-0) Flunitrazepam Not Cutoff: 10 Rohypnol Urine (test code = Detected ng/mL 94739-0) 7-Aminoflunitrazep Not Cutoff: 10 Metabolit e of Flunitrazepam am Urine (test Detected ng/mL code = 31638-8) FlUrinerazepam Not Cutoff: 10 Dalmane Urine (test code = Detected ng/mL 44966-7) 2-Hydroxy Ethyl Not Cutoff: 10 Metabolite o f Flurazepam Flurazepam Urine Detected ng/mL (test code = 99484-1) Lorazepam Urine Not Cutoff: 10 Ativan (test code = Detected ng/mL 46245-9) Lorazepam Not Cutoff: 50 Metabolite of L orazepam Glucuronide Urine Detected ng/mL (test code = 61176-0) Midazolam Urine Not Cutoff: 10 Versed (test code = Detected ng/mL 43532-3) Alpha-Hydroxy Not Cutoff: 10 Metabolite of Midazolam Midazolam Urine Detected ng/mL (test code = 80166-2) Oxazepam Urine Not Cutoff: 10 Serax; Also a metabolite of (test code = Detected ng/mL Chlordiazepoxid e, Diazepam, 85388-9) orTemazepam. Oxazepam Not Cutoff: 50 Metabolite of O xazepam Glucuronide Urine Detected ng/mL (test code = 79432-0) Prazepam Urine Not Cutoff: 10 Centrax (test code = Detected ng/mL 57376-4) Temazepam Urine Not Cutoff: 10 Restoril; Al so a metabolite of (test code = Detected ng/mL Diazepam. 57492-5) Temazepam Not Cutoff: 50 Metabolite of T emazepam Glucuronide Urine Detected ng/mL (test code = 68471-3) Triazolam Urine Not Cutoff: 10 Halcion (test code = Detected ng/mL 56501-3) Alpha-Hydroxy Not Cutoff: 10 Metabolite of Triazolam Triazolam Urine Detected ng/mL (test code = 60761-4) Zolpidem Urine Not Cutoff: 10 Ambien (test code = Detected ng/mL 38501-1) Zolpidem Present Cutoff: 10 A Metabolite of Z olpidem Wlfoj-0-Qbhnuwbtzo ng/mL Acid Urine (test code = 45848-7) Methamphetamine Not Cutoff: 100 Desoxyn (test code = Detected ng/mL 50321-4) Amphetamine (test Not Cutoff: 100 Dyanavel X R, Adzenys ER, code = 79709-0) Detected ng/mL Adderall, Vy vanse; Also ametabolite of methamphetamine 3,4-Methylenedioxy Not Cutoff: 100 methamphetamine Detected ng/mL (MDMA) (test code = 53081-5) 3,4-Methylenedioxy Not Cutoff: 100 -N-Ethylamphetamin Detected ng/mL e (MDEA) (test code = 69949-9) 3,4-Methylenedioxy Not Cutoff: 100 Also a me tabolite of MDMA amphetamine (MDA) Detected ng/mL and/or MDE A (test code = 34130-1) Ephedrine (test Not Cutoff: 100 code = 70486) Detected ng/mL Pseudoephedrine Present Cutoff: 100 A Sudafed (test code = ng/mL 25459) Phentermine (test Not Cutoff: 100 Adipex-P, Lomaira, Qsymia code = 42827-9) Detected ng/mL Phencyclidine Not Cutoff: 20 (PCP) (test code = Detected ng/mL 77588-8) Methylphenidate Not Cutoff: 20 Ritalin, Con certa (test code = Detected ng/mL 17165-6) Ritalinic acid Not Cutoff: 100 Metabolite of methylphenidate (test code = Detected ng/mL 66572) Stimulant See Test detected t he presence of Interpretation Footnote pseudoephedri ne. Suspect useof (test code = pseudoephedrine within the past 05307-5) three days. ----ADDITIONAL INFORMATION---- T his test was de veloped and its performance characteristics determined by [facility] in a manner consistent with CLIArequirement s. This test has not been cleare d or approved bythe U.S. Food and Drug Administration. Test Performed by:[facility] [id number] [place], [place] [address]Xes Dir ronnie: Moe Guzman M.D. Ph.D.; CLIA# [id number] Patients Current NOT ---------ADDITIONAL Medications (test ANSWERED INFORMATIO N A code = 56906-8) ccuracy and completeness of declared medica tions onreports solely dependen t on information submitted bycli ent. Lab Interpretation Abnormal (test code = 81988-9) [facility] [place] PlaneControlled Substance Monitoring Panel, [id number] 09:20:34 Test Item Value Reference Interpretation Comments Range Urine Creatinine 55.1 mg/dL (test code = 2161-8) Urine Specific 1.014 Clarence (test code = 5810-7) Urine Ph (test 6.2 code = 2756-5) Urine Oxidants Negative Cutoff: 200 (test code = mg/L 99770-3) Urine Comment Normal (test code = 91395-5) U Negative Cutoff: 200 Barbiturates-[place] ng/mL (test code = 91786-6) U Cocaine Lvl-[place] Negative Cutoff: 150 This coca ine immunoassay (test code = ng/mL targets benzoyl ecgonine 12218-2) theprimary meta bolite of cocaine. U THC-[place] (test See Cutoff: 50 A RESULT: Pre sumptive code = 77509-6) Footnote ng/mL PositiveThis immunoassay targets delta-9 tetrahydrocanna [...] code Not Cutoff: 25 Tylenol 3 = 15074-9) Detected ng/mL Qpncgjn-1-jhyi-glu Not Cutoff: 100 Metabolit e of codeine curonide (test Detected ng/mL code = 73300-1) Morphine (test Not Cutoff: 25 Gayle Mary n, MS Contin; Also code = 41801-7) Detected ng/mL a minor meta bolite (10%) ofcodeine and c an be seen in low concentrati ons (<2,000ng/mL) w ith poppy seed ingestion. Tpcoxhmk-5-bvdz-gl Not Cutoff: 100 Metabolit e of morphine ucuronide (test Detected ng/mL code = 09361-3) 6-monoacetylmorphi Not Cutoff: 25 Metabolit e of heroin ne (test code = Detected ng/mL 05436-0) Hydrocodone (test Not Cutoff: 25 Lortab, No rco, Vicodin; Also a code = 55551-6) Detected ng/mL very minor m etabolite ofcodeine and impurity (< 1%) of oxycodone. Norhydrocodone Not Cutoff: 25 Metabolite of hydrocodone (test code = Detected ng/mL 62680-4) Dihydrocodeine Not Cutoff: 25 Metabolite of hydrocodone (test code = Detected ng/mL 25878-1) Hydromorphone Not Cutoff: 25 Dilaudid, Exal go; Also a (test code = Detected ng/mL metabolite of h ydrocodone and 11523-5) aminor (<5%) me tabolite of morphine. Tffqzbjdnrzpz-7-si Not Cutoff: 100 Metabolit e of hydromorphone ta-glucuronide Detected ng/mL (test code = 75742-7) Oxycodone (test Present Cutoff: 25 A Endocet, Per cocet, Oxycontin code = 02477-5) ng/mL Noroxycodone (test Present Cutoff: 25 A Metabolit e of oxycodone code = 40325-8) ng/mL Oxymorphone (test Not Cutoff: 25 Numorphan, Opana; Also a code = 11503-8) Detected ng/mL metabolite o f oxycodone. Hcltbtbvcbn-0-caca Not Cutoff: 100 Metabolit e of oxymorphone -glucuronide (test Detected ng/mL and/or na loxone (nornaloxone) code = 98467-7) Noroxymorphone Present Cutoff: 25 A Metabolite of oxymorphone (test code = ng/mL and/or naloxone (nornaloxone) 68780-8) Fentanyl (test Not Cutoff: 2 Actiq, Durage sic, Fentora code = 49477-7) Detected ng/mL Norfentanyl (test Not Cutoff: 2 Metabolite of fentanyl code = 01324-2) Detected ng/mL Meperidine (test Not Cutoff: 25 Demerol code = 02222-1) Detected ng/mL Normeperidine Not Cutoff: 25 Metabolite of meperidine (test code = Detected ng/mL 90791-7) Naloxone (test Not Cutoff: 25 Narcan code = 36594-5) Detected ng/mL Veshtahw-5-vght-gl Not Cutoff: 100 Metabolit e of naloxone ucuronide (test Detected ng/mL code = 49895-1) U Methadone (test Not Cutoff: 25 Dolophine code = 69834-0) Detected ng/mL EDDP (test code = Not Cutoff: 25 Metabolite of methadone 22615-3) Detected ng/mL Propoxyphene (test Not Cutoff: 25 Darvon, D arvocet code = 32212-9) Detected ng/mL Norpropoxyphene Not Cutoff: 25 Metabolite o f propoxyphene (test code = Detected ng/mL 14252-8) Tramadol (test Not Cutoff: 25 Tradol, Ultra m, Ultracet code = 36931-0) Detected ng/mL O-desmethyltramado Not Cutoff: 25 Metabolit e of tramadol l (test code = Detected ng/mL 80846-9) Tapentadol (test Not Cutoff: 25 Nucynta code = 15041-7) Detected ng/mL Eprenlnorb-anxq-mf Not Cutoff: 100 Metabolit e of tapentadol ucuronide (test Detected ng/mL code = 82686-2) Buprenorphine Not Cutoff: 5 Buprenex, Subo xone (test code = Detected ng/mL 64941-0) Norbuprenorphine Not Cutoff: 5 Metabolite of buprenorphine (test code = Detected ng/mL 37933-9) Norbuprenorphine Not Cutoff: 20 Metabolite of buprenorphine Glucuronide (test Detected ng/mL code = 52339-0) Benzodiazepine See Test detected the presence of Interp Urine (test Footnote alprazola m and two of code = 49125-9) itsmetabolit es (alpha-hydroxya lprazolam andalpha-hydrox yalprazolam glucuronide). S uspect use ofalprazolam wi thin the past three days. Hailey t detected the presence of zol pidem vsdhqz-2-jtwnks ylicacid (metabolite of zolpidem) only. Suspect use of zolpidemwithin the past four d ays. ----ADDITIONAL INFORMATION---- T his test was de veloped and its performance characteristics determined by [facility] in a manner consistent with CLIArequirement s. This test has not been cleare d or approved bythe U.S. Food and Drug Administration. Alprazolam Urine Present Cutoff: 10 A Xanax (test code = ng/mL 45016-2) Alpha-Hydroxyalpra Present Cutoff: 10 A Metabolit e of Alprazolam zolam Urine (test ng/mL code = 73802-5) Alpha-Hydroxyalpra Present Cutoff: 50 A Metabolit e of Alprazolam zolam Glucuronide ng/mL Urine (test code = 19473-1) Chlordiazepoxide Not Cutoff: 10 Librium Urine (test code = Detected ng/mL 02590-9) Colbazam Urine Not Cutoff: 10 Frisium, Onfi (test code = Detected ng/mL 18647-4) N-Desmethylclobaza Not Cutoff: 200 Metabolit e of Clobazam m Urine (test code Detected ng/mL = 04279-1) Clonazepam Urine Not Cutoff: 10 Klonopin, R ivotril (test code = Detected ng/mL 96413-9) 7-Aminoclonazepam Not Cutoff: 10 Metabolite of Clonazepam Urine (test code = Detected ng/mL 13013-9) Diazepam Urine Not Cutoff: 10 Valium (test code = Detected ng/mL 74967-8) Nordiazepam Urine Not Cutoff: 10 Metabolite of Chlordiazepoxide, (test code = Detected ng/mL Diazepam, or Pr azepam. 68756-5) Flunitrazepam Not Cutoff: 10 Rohypnol Urine (test code = Detected ng/mL 76668-6) 7-Aminoflunitrazep Not Cutoff: 10 Metabolit e of Flunitrazepam am Urine (test Detected ng/mL code = 03646-7) FlUrinerazepam Not Cutoff: 10 Dalmane Urine (test code = Detected ng/mL 32170-3) 2-Hydroxy Ethyl Not Cutoff: 10 Metabolite o f Flurazepam Flurazepam Urine Detected ng/mL (test code = 93314-8) Lorazepam Urine Not Cutoff: 10 Ativan (test code = Detected ng/mL 56584-7) Lorazepam Not Cutoff: 50 Metabolite of L orazepam Glucuronide Urine Detected ng/mL (test code = 73200-3) Midazolam Urine Not Cutoff: 10 Versed (test code = Detected ng/mL 40080-4) Alpha-Hydroxy Not Cutoff: 10 Metabolite of Midazolam Midazolam Urine Detected ng/mL (test code = 41396-6) Oxazepam Urine Not Cutoff: 10 Serax; Also a metabolite of (test code = Detected ng/mL Chlordiazepoxid e, Diazepam, 23153-0) orTemazepam. Oxazepam Not Cutoff: 50 Metabolite of O xazepam Glucuronide Urine Detected ng/mL (test code = 92687-6) Prazepam Urine Not Cutoff: 10 Centrax (test code = Detected ng/mL 34399-7) Temazepam Urine Not Cutoff: 10 Restoril; Al so a metabolite of (test code = Detected ng/mL Diazepam. 41380-1) Temazepam Not Cutoff: 50 Metabolite of T emazepam Glucuronide Urine Detected ng/mL (test code = 31157-4) Triazolam Urine Not Cutoff: 10 Halcion (test code = Detected ng/mL 10517-0) Alpha-Hydroxy Not Cutoff: 10 Metabolite of Triazolam Triazolam Urine Detected ng/mL (test code = 68764-9) Zolpidem Urine Not Cutoff: 10 Ambien (test code = Detected ng/mL 21445-9) Zolpidem Present Cutoff: 10 A Metabolite of Z olpidem Dtpys-0-Ztpvybwshi ng/mL Acid Urine (test code = 18989-6) Methamphetamine Not Cutoff: 100 Desoxyn (test code = Detected ng/mL 01324-8) Amphetamine (test Not Cutoff: 100 Dyanavel X R, Adzenys ER, code = 47696-4) Detected ng/mL Adderall, Vy vanse; Also ametabolite of methamphetamine 3,4-Methylenedioxy Not Cutoff: 100 methamphetamine Detected ng/mL (MDMA) (test code = 35886-5) 3,4-Methylenedioxy Not Cutoff: 100 -N-Ethylamphetamin Detected ng/mL e (MDEA) (test code = 04465-2) 3,4-Methylenedioxy Not Cutoff: 100 Also a me tabolite of MDMA amphetamine (MDA) Detected ng/mL and/or MDE A (test code = 49691-3) Ephedrine (test Not Cutoff: 100 code = 11807) Detected ng/mL Pseudoephedrine Present Cutoff: 100 A Sudafed (test code = ng/mL 07178) Phentermine (test Not Cutoff: 100 Adipex-P, Lomaira, Qsymia code = 29053-4) Detected ng/mL Phencyclidine Not Cutoff: 20 (PCP) (test code = Detected ng/mL 46988-8) Methylphenidate Not Cutoff: 20 Ritalin, Con certa (test code = Detected ng/mL 60133-5) Ritalinic acid Not Cutoff: 100 Metabolite of methylphenidate (test code = Detected ng/mL 71602) Stimulant See Test detected t he presence of Interpretation Footnote pseudoephedri ne. Suspect useof (test code = pseudoephedrine within the past 04562-7) three days. ----ADDITIONAL INFORMATION---- T his test was de veloped and its performance characteristics determined by [facility] in a manner consistent with Marry pierce. This test has not been cleare d or approved bythe U.S. Food and Drug Administration. Test Performed by:[facility] [address] , [place], [place] [address]Qit Dir ronnie: Moe Guzman M.D. Ph.D.; CLIA# [id number] Patients Current NOT ---------ADDITIONAL Medications (test ANSWERED INFORMATIO N A code = 22222-6) ccuracy and completeness of declared medica tions onreports solely dependen t on information submitted bycli ent. Lab Interpretation Abnormal (test code = 20811-0) [facility] Urine Drug [id number] 18:30:48 Test Item Value Reference Range Interpretation Comments POC U Amp (test code Negative Negative Drug Ab use Cutoff = 94184-1) Concentration: Cutoff: 1000 ng /mL POC U Barbit (test Negative Negative Drug Abus e Cutoff code = 41169-1) Concentratio n: 300 ng/mL POC U Benzo (test Positive Negative A Drug Abuse Cutoff code = 90161-2) Concentratio n: Cutoff: 300 ng/ mL POC U Cocaine (test Negative Negative Drug Abu se Cutoff code = 65469-0) Concentratio n: Cutoff: 300 ng/ mL POC U THC (test code Positive Negative A Drug Ab use Cutoff = 6709) Concentration: Cutoff: 50 ng/m L POC U Methd (test Negative Negative Drug Abuse Cutoff code = 6701) Concentration: Cutoff: 300 ng/ mL POC U Mampht (test Negative Negative Drug Abus e Cutoff code = 09112-1) Concentratio n: Cutoff: 1000 ng /mL POC U Opiate (test Negative Negative Drug Abus e Cutoff code = 08940-7) Concentratio n: Cutoff: 2000 ng /mL POC U Oxycod (test Positive Negative A Drug Abus e Cutoff code = 84171-3) Concentratio n: Cutoff: 100 ng/ mL Due to the assa y cross reactivit y between Oxycodo ne and Opiates, an d lower sensitivi ty compared to GC- MS method, the hailey t results may be falsely positiv e or falsely negative. Confirmation wi th concurrent GC-M S results is recommended. POC U PCP (test code Negative Negative Drug Ab use Cutoff = 40352-5) Concentration: Cutoff: 25 ng/m L POC U TCA (test code Negative Negative Drug Ab use Cutoff = 34727-5) Concentration: Cutoff: 1000 ng /mL POC U PPX (test code Negative Negative Drug Ab use Cutoff = 94865-0) Concentration: Cutoff: 300 ng/ mL Method description: [...] testing. Lab Interpretation Abnormal (test code = 42428-5) [facility] Urine Drug [id number] 18:30:48 Test Item Value Reference Range Interpretation Comments POC U Amp (test code Negative Negative Drug Ab use Cutoff = 62334-4) Concentration: Cutoff: 1000 ng /mL POC U Barbit (test Negative Negative Drug Abus e Cutoff code = 09491-2) Concentratio n: 300 ng/mL POC U Benzo (test Positive Negative A Drug Abuse Cutoff code = 93212-7) Concentratio n: Cutoff: 300 ng/ mL POC U Cocaine (test Negative Negative Drug Abu se Cutoff code = 93910-4) Concentratio n: Cutoff: 300 ng/ mL POC U THC (test code Positive Negative A Drug Ab use Cutoff = 9) Concentration: Cutoff: 50 ng/m L POC U Methd (test Negative Negative Drug Abuse Cutoff code = 6701) Concentration: Cutoff: 300 ng/ mL POC U Mampht (test Negative Negative Drug Abus e Cutoff code = 24240-5) Concentratio n: Cutoff: 1000 ng /mL POC U Opiate (test Negative Negative Drug Abus e Cutoff code = 15602-8) Concentratio n: Cutoff: 2000 ng /mL POC U Oxycod (test Positive Negative A Drug Abus e Cutoff code = 50962-1) Concentratio n: Cutoff: 100 ng/ mL Due to the assa y cross reactivit y between Oxycodo ne and Opiates, an d lower sensitivi ty compared to GC- MS method, the hailey t results may be falsely positiv e or falsely negative. Confirmation wi th concurrent GC-M S results is recommended. POC U PCP (test code Negative Negative Drug Ab use Cutoff = 93540-2) Concentration: Cutoff: 25 ng/m L POC U TCA (test code Negative Negative Drug Ab use Cutoff = 91719-7) Concentration: Cutoff: 1000 ng /mL POC U PPX (test code Negative Negative Drug Ab use Cutoff = 04880-6) Concentration: Cutoff: 300 ng/ mL Method description: [...] testing. Lab Interpretation Abnormal (test code = 75873-0) [facility] Urine Drug [id number] 18:30:48 Test Item Value Reference Range Interpretation Comments POC U Amp (test code Negative Negative Drug Ab use Cutoff = 99785-7) Concentration: Cutoff: 1000 ng /mL POC U Barbit (test Negative Negative Drug Abus e Cutoff code = 23499-1) Concentratio n: 300 ng/mL POC U Benzo (test Positive Negative A Drug Abuse Cutoff code = 70446-7) Concentratio n: Cutoff: 300 ng/ mL POC U Cocaine (test Negative Negative Drug Abu se Cutoff code = 36131-3) Concentratio n: Cutoff: 300 ng/ mL POC U THC (test code Positive Negative A Drug Ab use Cutoff = 6709) Concentration: Cutoff: 50 ng/m L POC U Methd (test Negative Negative Drug Abuse Cutoff code = 6701) Concentration: Cutoff: 300 ng/ mL POC U Mampht (test Negative Negative Drug Abus e Cutoff code = 86164-0) Concentratio n: Cutoff: 1000 ng /mL POC U Opiate (test Negative Negative Drug Abus e Cutoff code = 71142-1) Concentratio n: Cutoff: 2000 ng /mL POC U Oxycod (test Positive Negative A Drug Abus e Cutoff code = 13753-0) Concentratio n: Cutoff: 100 ng/ mL Due to the assa y cross reactivit y between Oxycodo ne and Opiates, an d lower sensitivi ty compared to GC- MS method, the hailey t results may be falsely positiv e or falsely negative. Confirmation wi th concurrent GC-M S results is recommended. POC U PCP (test code Negative Negative Drug Ab use Cutoff = 18609-5) Concentration: Cutoff: 25 ng/m L POC U TCA (test code Negative Negative Drug Ab use Cutoff = 51612-1) Concentration: Cutoff: 1000 ng /mL POC U PPX (test code Negative Negative Drug Ab use Cutoff = 86721-5) Concentration: Cutoff: 300 ng/ mL Method description: [...] testing. Lab Interpretation Abnormal (test code = 14000-8) [facility] Urine Drug [id number] 18:30:48 Test Item Value Reference Range Interpretation Comments POC U Amp (test code Negative Negative Drug Ab use Cutoff = 16878-1) Concentration: Cutoff: 1000 ng /mL POC U Barbit (test Negative Negative Drug Abus e Cutoff code = 37302-5) Concentratio n: 300 ng/mL POC U Benzo (test Positive Negative A Drug Abuse Cutoff code = 35587-7) Concentratio n: Cutoff: 300 ng/ mL POC U Cocaine (test Negative Negative Drug Abu se Cutoff code = 07437-3) Concentratio n: Cutoff: 300 ng/ mL POC U THC (test code Positive Negative A Drug Ab use Cutoff = 6709) Concentration: Cutoff: 50 ng/m L POC U Methd (test Negative Negative Drug Abuse Cutoff code = 6701) Concentration: Cutoff: 300 ng/ mL POC U Mampht (test Negative Negative Drug Abus e Cutoff code = 23085-2) Concentratio n: Cutoff: 1000 ng /mL POC U Opiate (test Negative Negative Drug Abus e Cutoff code = 07285-6) Concentratio n: Cutoff: 2000 ng /mL POC U Oxycod (test Positive Negative A Drug Abus e Cutoff code = 27277-4) Concentratio n: Cutoff: 100 ng/ mL Due to the assa y cross reactivit y between Oxycodo ne and Opiates, an d lower sensitivi ty compared to GC- MS method, the hailey t results may be falsely positiv e or falsely negative. Confirmation wi th concurrent GC-M S results is recommended. POC U PCP (test code Negative Negative Drug Ab use Cutoff = 68972-9) Concentration: Cutoff: 25 ng/m L POC U TCA (test code Negative Negative Drug Ab use Cutoff = 63433-8) Concentration: Cutoff: 1000 ng /mL POC U PPX (test code Negative Negative Drug Ab use Cutoff = 62866-8) Concentration: Cutoff: 300 ng/ mL Method description: [...] testing. Lab Interpretation Abnormal (test code = 64312-2) [facility] Urine Drug [id number] 18:30:48 Test Item Value Reference Range Interpretation Comments POC U Amp (test code Negative Negative Drug Ab use Cutoff = 83095-4) Concentration: Cutoff: 1000 ng /mL POC U Barbit (test Negative Negative Drug Abus e Cutoff code = 50049-7) Concentratio n: 300 ng/mL POC U Benzo (test Positive Negative A Drug Abuse Cutoff code = 70293-9) Concentratio n: Cutoff: 300 ng/ mL POC U Cocaine (test Negative Negative Drug Abu se Cutoff code = 08448-7) Concentratio n: Cutoff: 300 ng/ mL POC U THC (test code Positive Negative A Drug Ab use Cutoff = 9) Concentration: Cutoff: 50 ng/m L POC U Methd (test Negative Negative Drug Abuse Cutoff code = 1) Concentration: Cutoff: 300 ng/ mL POC U Mampht (test Negative Negative Drug Abus e Cutoff code = 72378-6) Concentratio n: Cutoff: 1000 ng /mL POC U Opiate (test Negative Negative Drug Abus e Cutoff code = 55245-1) Concentratio n: Cutoff: 2000 ng /mL POC U Oxycod (test Positive Negative A Drug Abus e Cutoff code = 18688-9) Concentratio n: Cutoff: 100 ng/ mL Due to the assa y cross reactivit y between Oxycodo ne and Opiates, an d lower sensitivi ty compared to GC- MS method, the hailey t results may be falsely positiv e or falsely negative. Confirmation wi th concurrent GC-M S results is recommended. POC U PCP (test code Negative Negative Drug Ab use Cutoff = 48501-5) Concentration: Cutoff: 25 ng/m L POC U TCA (test code Negative Negative Drug Ab use Cutoff = 82841-7) Concentration: Cutoff: 1000 ng /mL POC U PPX (test code Negative Negative Drug Ab use Cutoff = 47445-4) Concentration: Cutoff: 300 ng/ mL Method description: [...] testing. Lab Interpretation Abnormal (test code = 88952-5) [facility] Urine Drug [id number] 18:30:48 Test Item Value Reference Range Interpretation Comments POC U Amp (test code Negative Negative Drug Ab use Cutoff = 88675-2) Concentration: Cutoff: 1000 ng /mL POC U Barbit (test Negative Negative Drug Abus e Cutoff code = 55549-3) Concentratio n: 300 ng/mL POC U Benzo (test Positive Negative A Drug Abuse Cutoff code = 09400-9) Concentratio n: Cutoff: 300 ng/ mL POC U Cocaine (test Negative Negative Drug Abu se Cutoff code = 35083-5) Concentratio n: Cutoff: 300 ng/ mL POC U THC (test code Positive Negative A Drug Ab use Cutoff = 6709) Concentration: Cutoff: 50 ng/m L POC U Methd (test Negative Negative Drug Abuse Cutoff code = 6701) Concentration: Cutoff: 300 ng/ mL POC U Mampht (test Negative Negative Drug Abus e Cutoff code = 67087-9) Concentratio n: Cutoff: 1000 ng /mL POC U Opiate (test Negative Negative Drug Abus e Cutoff code = 85628-6) Concentratio n: Cutoff: 2000 ng /mL POC U Oxycod (test Positive Negative A Drug Abus e Cutoff code = 68010-6) Concentratio n: Cutoff: 100 ng/ mL Due to the assa y cross reactivit y between Oxycodo ne and Opiates, an d lower sensitivi ty compared to GC- MS method, the hailey t results may be falsely positiv e or falsely negative. Confirmation wi th concurrent GC-M S results is recommended. POC U PCP (test code Negative Negative Drug Ab use Cutoff = 85120-0) Concentration: Cutoff: 25 ng/m L POC U TCA (test code Negative Negative Drug Ab use Cutoff = 66847-2) Concentration: Cutoff: 1000 ng /mL POC U PPX (test code Negative Negative Drug Ab use Cutoff = 42450-3) Concentration: Cutoff: 300 ng/ mL Method description: [...] testing. Lab Interpretation Abnormal (test code = 87030-2) [facility] Urine Drug [id number] 18:30:48 Test Item Value Reference Range Interpretation Comments POC U Amp (test code Negative Negative Drug Ab use Cutoff = 47626-5) Concentration: Cutoff: 1000 ng /mL POC U Barbit (test Negative Negative Drug Abus e Cutoff code = 80541-4) Concentratio n: 300 ng/mL POC U Benzo (test Positive Negative A Drug Abuse Cutoff code = 78775-3) Concentratio n: Cutoff: 300 ng/ mL POC U Cocaine (test Negative Negative Drug Abu se Cutoff code = 31267-1) Concentratio n: Cutoff: 300 ng/ mL POC U THC (test code Positive Negative A Drug Ab use Cutoff = 6709) Concentration: Cutoff: 50 ng/m L POC U Methd (test Negative Negative Drug Abuse Cutoff code = 6701) Concentration: Cutoff: 300 ng/ mL POC U Mampht (test Negative Negative Drug Abus e Cutoff code = 80407-0) Concentratio n: Cutoff: 1000 ng /mL POC U Opiate (test Negative Negative Drug Abus e Cutoff code = 72870-6) Concentratio n: Cutoff: 2000 ng /mL POC U Oxycod (test Positive Negative A Drug Abus e Cutoff code = 91815-6) Concentratio n: Cutoff: 100 ng/ mL Due to the assa y cross reactivit y between Oxycodo ne and Opiates, an d lower sensitivi ty compared to GC- MS method, the hailey t results may be falsely positiv e or falsely negative. Confirmation wi th concurrent GC-M S results is recommended. POC U PCP (test code Negative Negative Drug Ab use Cutoff = 59070-0) Concentration: Cutoff: 25 ng/m L POC U TCA (test code Negative Negative Drug Ab use Cutoff = 69476-4) Concentration: Cutoff: 1000 ng /mL POC U PPX (test code Negative Negative Drug Ab use Cutoff = 16608-5) Concentration: Cutoff: 300 ng/ mL Method description: [...] testing. Lab Interpretation Abnormal (test code = 68725-6) [facility]- Asymptomatic [id number] 03:09:25 Test Item Value Reference Range Interpretation Comments COVID19 (SARS Not Detected Not Detected CoV-2) Result (test code = __This test is a 95920-7) qualitative reverse-transcr iptase polymerase alanna n reaction [...] patients provid ed by the manufacture r ([employer]) c an be reviewed at:https://www. [employer].gov /media/032550/d ownload . A fact sheet for Health Care pro viders is provided by the second grade teacher ([employer]) and can be reviewed at: https://www.[employer] .gov/me juliet/441425/down load Results must be interpreted wit hin [...] were verified by the Microbiology Laboratory at [facility] [address], CLIA Accreditation # : [id number] and CAP Accreditation # : [id number]. COVID19 SARS PHYSICIAN ASSISTANT PSYCHIATRY Swab Source (test code = 98370) COVID19 SARS Pre-Radiation Indication (test Therapy code = 60214) [facility]- As[facility] [id number] 03:09:25 Test Item Value Reference Range Interpretation Comments COVID19 (SARS Not Detected Not Detected CoV-2) Result (test code = __This test is a 21599-0) qualitative reverse-transcr iptase polymerase alanna n reaction [...] patients provid ed by the manufacture r ([employer]) c an be reviewed at:https://www. fda.gov /media/425512/d ownload . A fact sheet for Health Care pro viders is provided by the second grade teacher ([employer]) and can be reviewed at: https://www.fda .gov/me juliet/740789/down load Results must be interpreted wit hin [...] specimen for testing if clin ically indicated. Thi s assay has been approv ed by the FDA for use only under Emergency Use Authorization ( EUA) in laboratories th at have been CLIA-certi fied to perform moderate-comple xity and high-comple xity tests. The perf ormance characteristics of this assay were verified by the Microbiology Laboratory at [facility], CLIA Accreditation # : [id number] and CAP Accreditation # : [id number]. COVID19 SARS PHYSICIAN ASSISTANT PSYCHIATRY Swab Source (test code = 12557) COVID19 SARS Pre-Radiation Indication (test Therapy code = 91531) [facility] (SARS-CoV-2) PCR- Asymptomatic [id number] 03:09:25 Test Item Value Reference Range Interpretation Comments COVID19 (SARS Not Detected Not Detected CoV-2) Result (test code = __This test is a 78960-9) qualitative reverse-transcr iptase polymerase alanna n reaction [...] patients provid ed by the manufacture r ([employer]) c an be reviewed at:https://www. fda.gov /media/687223/d ownload . A fact sheet for Health Care pro viders is provided by the second grade teacher ([employer]) and can be reviewed at: https://www.fda .gov/me juliet/479831/down load Results must be interpreted wit hin [...] were verified by the Microbiology Laboratory at [facility], CLIA Accreditation # : [id number] and CAP Accreditation # : [id number]. COVID19 SARS PHYSICIAN ASSISTANT PSYCHIATRY Swab Source (test code = 00528) COVID19 SARS Pre-Radiation Indication (test Therapy code = 28135) [facility] (SARS-CoV-2) PCR- Asymptomatic [id number] 03:09:25 Test Item Value Reference Range Interpretation Comments COVID19 (SARS Not Detected Not Detected CoV-2) Result (test code = __This test is a 52282-7) qualitative reverse-transcr iptase polymerase alanna n reaction [...] patients provid ed by the manufacture r ([employer]) c an be reviewed at:https://www. [employer].gov /media/504483/d ownload . A fact sheet for Health Care pro viders is provided by the second grade teacher ([employer]) and can be reviewed at: https://www.fda .gov/me juliet/934067/down load Results must be interpreted wit hin [...] were verified by the Microbiology Laboratory at [facility], CLIA Accreditation # : [id number] and CAP Accreditation # : [id number]. COVID19 SARS PHYSICIAN ASSISTANT PSYCHIATRY Swab Source (test code = 37011) COVID19 SARS Pre-Radiation Indication (test Therapy code = 92663) [facility]- As[facility]omatic [id number] 03:09:25 Test Item Value Reference Range Interpretation Comments COVID19 (SARS Not Detected Not Detected CoV-2) Result (test code = __This test is a 26973-3) qualitative reverse-transcr iptase polymerase alanna n reaction [...] patients provid ed by the manufacture r ([employer]) c an be reviewed at:https://www. fda.gov /media/377624/d ownload . A fact sheet for Health Care pro viders is provided by the second grade teacher ([employer]) and can be reviewed at: https://www.fda .gov/me juliet/064550/down load Results must be interpreted wit hin [...] were verified [facility] [facility], CLIA Accreditation # : [id number] and CAP Accreditation # : [id number]. COVID19 SARS PHYSICIAN ASSISTANT PSYCHIATRY Swab Source (test code = 17175) COVID19 SARS Pre-Radiation Indication (test Therapy code = 75275) [facility] [place] [facility]aneCOVID-19 (SARS-CoV-2) PCR- Asymptomatic [id number] 03:09:25 Test Item Value Reference Range Interpretation Comments COVID19 (SARS Not Detected Not Detected CoV-2) Result (test code = __This test is a 15728-8) qualitative reverse-transcr iptase polymerase alanna n reaction (RT-PC R) developed for t he Ravenflow RUBY 680 0 system and inte nded [...] patients provid ed by the manufacture r ([employer]) c an be reviewed at:https://www. fda.gov /media/183936/d ownload . A fact sheet for Health Care pro viders is provided by the second grade teacher ([employer]) and can be reviewed at: https://www.fda .gov/me juliet/383004/down load Results must be interpreted wit hin [...] were verified by the Microbiology Laboratory at [facility], CLIA Accreditation # : [id number] and CAP Accreditation # : [id number]. COVID19 SARS PHYSICIAN ASSISTANT PSYCHIATRY Swab Source (test code = 39826) COVID19 SARS Pre-Radiation Indication (test Therapy code = 67680) [facility]- As[facility]omatic [id number] 03:09:25 Test Item Value Reference Range Interpretation Comments COVID19 (SARS Not Detected Not Detected CoV-2) Result (test code = __This test is a 00893-9) qualitative reverse-transcr iptase polymerase alanna n reaction [...] patients provid ed by the manufacture r ([employer]) c an be reviewed at:https://www. fda.gov /media/368375/d ownload . A fact sheet for Health Care pro viders is provided by the second grade teacher ([employer]) and can be reviewed at: https://www.[employer] .gov/me juliet/718186/down load Results must be interpreted wit hin [...] were verified by the Microbiology Laboratory at [facility], CLIA Accreditation # : [id number] and CAP Accreditation # : [id number]. COVID19 SARS PHYSICIAN ASSISTANT PSYCHIATRY Swab Source (test code = 88639) COVID19 SARS Pre-Radiation Indication (test Therapy code = 06649) [facility] [id number] 00:43:46 Test Item Value Reference Range Interpretation Comments pH Raghavendra (test code = 7.40 7.32-7.43 Results are 2746-6) corrected for a body temp of 37C pCO2 Raghavendra (test code = 47.6 See_Comment [Auto mated message] 2021-01) The system Triplify generated this result transmit kaylie reference range : 41.0 - 51.0 mmH g. The reference r pinky was not used to interpret this result as normal/abnormal . pO2 Raghavendra (test code = 52 mmHg 2705-2) HCO3 Raghavendra (test code = 29 mmol/L 21-28 H 71140-2) Base Excess Raghavendra (test 3 mmol/L -2-3 code = 1927-3) O2 Sat Raghavendra (test code = 87 % 2711-0) Lab Interpretation (test Abnormal code = 45462-6) [facility] [id number] 00:43:46 Test Item Value Reference Range Interpretation Comments pH Raghavendra (test code = 7.40 7.32-7.43 Results are 2746-6) corrected for a body temp of 37C pCO2 Raghavendra (test code = 47.6 See_Comment [Auto mated message] 2021-01) The system Triplify generated this result transmit kaylie reference range : 41.0 - 51.0 mmH g. The reference r pinky was not used to interpret this result as normal/abnormal . pO2 Raghavendra (test code = 52 mmHg 2705-2) HCO3 Raghavendra (test code = 29 mmol/L 21-28 H 91129-5) Base Excess Raghavendra (test 3 mmol/L -2-3 code = 1927-3) O2 Sat Raghavendra (test code = 87 % 2711-0) Lab Interpretation (test Abnormal code = 50380-8) [facility] [id number] 00:43:46 Test Item Value Reference Range Interpretation Comments pH Raghavendra (test code = 7.40 7.32-7.43 Results are 2746-6) corrected for a body temp of 37C pCO2 Raghavendra (test code = 47.6 See_Comment [Auto mated message] 2021-01) The system Triplify generated this result transmit kaylie reference range : 41.0 - 51.0 mmH g. The reference r pinky was not used to interpret this result as normal/abnormal . pO2 Raghavendra (test code = 52 mmHg 2705-2) HCO3 Raghavendra (test code = 29 mmol/L 21-28 H 64185-7) Base Excess Raghavendra (test 3 mmol/L -2-3 code = 1927-3) O2 Sat Raghavendra (test code = 87 % 2711-0) Lab Interpretation (test Abnormal code = 26784-4) [facility] [id number] 00:43:46 Test Item Value Reference Range Interpretation Comments pH Raghavendra (test code = 7.40 7.32-7.43 Results are 2746-6) corrected for a body temp of 37C pCO2 Raghavendra (test code = 47.6 See_Comment [Auto mated message] 2021-01) The system Triplify generated this result transmit kaylie reference range : 41.0 - 51.0 mmH g. The reference r pinky was not used to interpret this result as normal/abnormal . pO2 Raghavendra (test code = 52 mmHg 2705-2) HCO3 Raghavendra (test code = 29 mmol/L 21-28 H 91231-1) Base Excess Raghavendra (test 3 mmol/L -2-3 code = 1927-3) O2 Sat Raghavendra (test code = 87 % 2711-0) Lab Interpretation (test Abnormal code = 98895-4) [facility] [id number] 00:43:46 Test Item Value Reference Range Interpretation Comments pH Raghavendra (test code = 7.40 7.32-7.43 Results are 2746-6) corrected for a body temp of 37C pCO2 Raghavendra (test code = 47.6 See_Comment [Auto mated message] 2021-01) The system Triplify generated this result transmit kaylie reference range : 41.0 - 51.0 mmH g. The reference r pinky was not used to interpret this result as normal/abnormal . pO2 Raghavendra (test code = 52 mmHg 2705-2) HCO3 Raghavendra (test code = 29 mmol/L 21-28 H 26861-3) Base Excess Raghavendra (test 3 mmol/L -2-3 code = 1927-3) O2 Sat Raghavendra (test code = 87 % 2711-0) Lab Interpretation (test Abnormal code = 10087-7) [facility] [id number] 00:43:46 Test Item Value Reference Range Interpretation Comments pH Raghavendra (test code = 7.40 7.32-7.43 Results are 2746-6) corrected for a body temp of 37C pCO2 Raghavendra (test code = 47.6 See_Comment [Auto mated message] 2021-01) The system Triplify generated this result transmit kaylie reference range : 41.0 - 51.0 mmH g. The reference r pinky was not used to interpret this result as normal/abnormal . pO2 Raghavendra (test code = 52 mmHg 2705-2) HCO3 Raghavendra (test code = 29 mmol/L 21-28 H 80398-4) Base Excess Raghavendra (test 3 mmol/L -2-3 code = 1927-3) O2 Sat Raghavendra (test code = 87 % 2711-0) Lab Interpretation (test Abnormal code = 60956-8) [facility] [id number] 00:43:46 Test Item Value Reference Range Interpretation Comments pH Raghavendra (test code = 7.40 7.32-7.43 Results are 2746-6) corrected for a body temp of 37C pCO2 Raghavendra (test code = 47.6 See_Comment [Auto mated message] 2021-01) The system Triplify generated this result transmit kaylie reference range : 41.0 - 51.0 mmH g. The reference r pinky was not used to interpret this result as normal/abnormal . pO2 Raghavendra (test code = 52 mmHg 2705-2) HCO3 Raghavendra (test code = 29 mmol/L 21-28 H 49693-5) Base Excess Raghavendra (test 3 mmol/L -2-3 code = 1927-3) O2 Sat Raghavendra (test code = 87 % 2711-0) Lab Interpretation (test Abnormal code = 20227-9) [facility] Pcynzjfbvra8305-44-66 00:17:35 Test Item Value Reference Range Interpretation Comments UA Ketones (test code = 5797-6) NEG NEG mg/dL [facility] [id number] 00:17:35 Test Item Value Reference Range Interpretation Comments UA Ketones (test code = 5797-6) NEG NEG mg/dL [facility] Wbohjeccqpd9278-45-27 00:17:35 Test Item Value Reference Range Interpretation Comments UA Ketones (test code = 5797-6) NEG NEG mg/dL [facility] Ehgknocopsm0641-91-95 00:17:35 Test Item Value Reference Range Interpretation Comments UA Ketones (test code = 5797-6) NEG NEG mg/dL [facility] Itcwplpiqsk4605-79-05 00:17:35 Test Item Value Reference Range Interpretation Comments UA Ketones (test code = 5797-6) NEG NEG mg/dL [facility] Chzopbsrnwa5089-29-42 00:17:35 Test Item Value Reference Range Interpretation Comments UA Ketones (test code = 5797-6) NEG NEG mg/dL [facility] Gjwhinxlqul1373-07-55 00:17:35 Test Item Value Reference Range Interpretation Comments UA Ketones (test code = 5797-6) NEG NEG mg/dL [facility] Alrnlqeq5741-02-57 21:37:06 Test Item Value Reference Range Interpretation Comments POC Critical Comment See Note Test pe rformer notified (test code = 8955) Ordering Licensed Provider and /o r designee of POC Glucose Screen critical Results.. [facility] Difyamzo8198-71-93 21:37:06 Test Item Value Reference Range Interpretation Comments POC Critical Comment See Note Test pe rformer notified (test code = 8955) Ordering Licensed Provider and /o r designee of POC Glucose Screen critical Results.. [facility]2023-02-10 21:37:06 Test Item Value Reference Range Interpretation Comments POC Critical Comment See Note Test pe rformer notified (test code = 8955) Ordering Licensed Provider and /o r designee of POC Glucose Screen critical Results.. [facility]2023-02-10 21:37:06 Test Item Value Reference Range Interpretation Comments POC Critical Comment See Note Test pe rformer notified (test code = 8955) Ordering Licensed Provider and /o r designee of POC Glucose Screen critical Results.. [facility]2023-02-10 21:37:06 Test Item Value Reference Range Interpretation Comments POC Critical Comment See Note Test pe rformer notified (test code = 8955) Ordering Licensed Provider and /o r designee of POC Glucose Screen critical Results.. [facility]2023-02-10 21:37:06 Test Item Value Reference Range Interpretation Comments POC Critical Comment See Note Test pe rformer notified (test code = 8955) Ordering Licensed Provider and /o r designee of POC Glucose Screen critical Results.. [facility] Unsyvpcq2279-60-97 21:37:06 Test Item Value Reference Range Interpretation Comments POC Critical Comment See Note Test pe rformer notified (test code = 8955) Ordering Licensed Provider and /o r designee of POC Glucose Screen critical Results.. [facility] VBG+[id number] 03:40:13 Test Item Value Reference Range Interpretation Comments POC VB pH (test code 7.46 7.31-7.41 H = 6-6) POC VB pCO2 (test 42 See_Comment [Automate d message] code = 2021-01) The system [employer] generated this result transmitted ref erence range: 41 - 51 mmHg. The reference r pinky was not used to interpret this result as normal/abnor mal. POC VB pO2 (test 61 mmHg code = 2704-2) POC VB TCO2 (test 31 See_Comment H [Automate d message] code = 2026-11) The system [email or web address] generated this result transmitted ref erence range: 24 - 29 mEq/L. The reference r pinky was not used to interpret this result as normal/abnor mal. POC VB Bicarb (test 30 mmol/L 23-28 H code = 22813-2) POC VB Base Ex (test 5 mmol/L [...] ally sensitive biose nsors on a silicon Ex[employer] ip that are config ured to perform spec ific tests. The microfabricated sensors measure analyte concent ration by an electroch emical assay. POC Sample Type Venous (test code = 6690) POC Clean Dev (test Yes code = 6672) Performing Lab (test MDA Main Main Ca mpus code = 81581) [facility] Cli nical Lab, [facility] [address], [place] [address]; Varnish Mixer: Margarita Jacob MD; Waived Point of Care Testing - Gabrielle aaron MD Lab Interpretation Abnormal (test code = 06527-7) [facility] V[facility]+[id number] 03:40:13 Test Item Value Reference Range Interpretation Comments POC VB pH (test code 7.46 7.31-7.41 H = 2746-6) POC VB pCO2 (test 42 See_Comment [Automate d message] code = 2021-01) The system [employer] generated this result transmitted ref erence range: 41 - 51 mmHg. The reference r pinky was not used to interpret this result as normal/abnor mal. POC VB pO2 (test 61 mmHg code = 2705-2) POC VB TCO2 (test 31 See_Comment H [Automate d message] code = 2026-11) The system [employer] generated this result transmitted ref erence range: 24 - 29 mEq/L. The reference r pinky was not used to interpret this result as normal/abnor mal. POC VB Bicarb (test 30 mmol/L 23-28 H code = 50314-2) POC VB Base Ex (test 5 mmol/L [...] chemic ally sensitive biose nsors on a [employer] ip that are config ured to perform spec ific tests. The microfabricated sensors measure analyte concent ration by an electroch emical assay. POC Sample Type Venous (test code = 6690) POC Clean Dev (test Yes code = 6672) Performing Lab (test MDA Main Main Ca mpus code = 47963) [facility] Cli nical Lab, [facility], [place] [address]; Varnish Mixer: Margarita Jacob MD; Waived Point of Care Testing - Gabrielle aaron MD Lab Interpretation Abnormal (test code = 83955-0) [facility] V[facility]+[id number] 03:40:13 Test Item Value Reference Range Interpretation Comments POC VB pH (test code 7.46 7.31-7.41 H = 2746-6) POC VB pCO2 (test 42 See_Comment [Automate d message] code = 2020-) The system [employer] generated this result transmitted ref erence range: 41 - 51 mmHg. The reference r pinky was not used to interpret this result as normal/abnor mal. POC VB pO2 (test 61 mmHg code = 2705-2) POC VB TCO2 (test 31 See_Comment H [Automate d message] code = 2026-) The system [employer] generated this result transmitted ref erence range: 24 - 29 mEq/L. The reference r pinky was not used to interpret this result as normal/abnor mal. POC VB Bicarb (test 30 mmol/L 23-28 H code = 28663-9) POC VB Base Ex (test 5 mmol/L [...] chemic ally sensitive biose nsors on a [employer] ip that are config ured to perform spec ific tests. The microfabricated sensors measure analyte concent ration by an electroch emical assay. POC Sample Type Venous (test code = 6690) POC Clean Dev (test Yes code = 6672) Performing Lab (test MDA Main Main Ca mpus code = 24637) [facility] nical Lab, [address] [place] [address] [address], [place] [address]; Varnish Mixer: Margarita Jacob MD; Waived Point of Care Testing - Gabrielle aaron MD Lab Interpretation Abnormal (test code = 75126-1) [facility] V[facility]+[id number] 03:40:13 Test Item Value Reference Range Interpretation Comments POC VB pH (test code 7.46 7.31-7.41 H = 2746-6) POC VB pCO2 (test 42 See_Comment [Automate d message] code = 2021-01) The system [employer] generated this result transmitted ref erence range: 41 - 51 mmHg. The reference r pinky was not used to interpret this result as normal/abnor mal. POC VB pO2 (test 61 mmHg code = 2705-2) POC VB TCO2 (test 31 See_Comment H [Automate d message] code = 2026-11) The system [email or web address] generated this result transmitted ref erence range: 24 - 29 mEq/L. The reference r pinky was not used to interpret this result as normal/abnor mal. POC VB Bicarb (test 30 mmol/L 23-28 H code = 08961-7) POC VB Base Ex (test 5 mmol/L [...] chemic ally sensitive biose nsors on a [employer] ip that are config ured to perform spec ific tests. The microfabricated sensors measure analyte concent ration by an electroch emical assay. POC Sample Type Venous (test code = 6690) POC Clean Dev (test Yes code = 6672) Performing Lab (test MDA Main Main Ca mpus code = 90407) [facility] nical Lab, [address] [place] [address], [place] [address]; Varnish Mixer: Margarita Jacob MD; Waived Point of Care Testing - Gabrielle aaron MD Lab Interpretation Abnormal (test code = 68514-3) [facility]+[id number] 03:40:13 Test Item Value Reference Range Interpretation Comments POC VB pH (test code 7.46 7.31-7.41 H = 2746-6) POC VB pCO2 (test 42 See_Comment [Automate d message] code = 2021-01) The system [employer] generated this result transmitted ref erence range: 41 - 51 mmHg. The reference r pinky was not used to interpret this result as normal/abnor mal. POC VB pO2 (test 61 mmHg code = 2705-2) POC VB TCO2 (test 31 See_Comment H [Automate d message] code = 2026-11) The system [employer] generated this result transmitted ref erence range: 24 - 29 mEq/L. The reference r pinky was not used to interpret this result as normal/abnor mal. POC VB Bicarb (test 30 mmol/L 23-28 H code = 34517-8) POC VB Base Ex (test 5 mmol/L [...] chemic ally sensitive biose nsors on a [employer] ip that are config ured to perform spec ific tests. The microfabricated sensors measure analyte concent ration by an electroch emical assay. POC Sample Type Venous (test code = 6690) POC Clean Dev (test Yes code = 6672) Performing Lab (test MDA Main Main Ca mpus code = 82492) [facility] nical Lab, [address] [place] [address], [place] [address]; Varnish Mixer: Margarita Jacob MD; Waived Point of Care Testing - Gabrielle aaron MD Lab Interpretation Abnormal (test code = 66026-6) [facility]+[id number] 03:40:13 Test Item Value Reference Range Interpretation Comments POC VB pH (test code 7.46 7.31-7.41 H = 2746-6) POC VB pCO2 (test 42 See_Comment [Automate d message] code = 2021-01) The system [employer] generated this result transmitted ref erence range: 41 - 51 mmHg. The reference r pinky was not used to interpret this result as normal/abnor mal. POC VB pO2 (test 61 mmHg code = 2705-2) POC VB TCO2 (test 31 See_Comment H [Automate d message] code = 2026-11) The system [employer] generated this result transmitted ref erence range: 24 - 29 mEq/L. The reference r pinky was not used to interpret this result as normal/abnor mal. POC VB Bicarb (test 30 mmol/L 23-28 H code = 35694-8) POC VB Base Ex (test 5 mmol/L -2-3 H code = 1927-3) POC VB O2 Sat (test 92 % code = 2711-0) POC VB LAC (test 2.4 mmol/L 0.9-1.7 H Method desc ription: code = 2519-7) The i-STAT is an analyzer used f or in vitro quantific ation of various anal ytes in whole blood. The device uses a s [employer] disposable cart ridge which contains microfabricated sensors, a calibration kaye ution, fluidics system , and a waste chamber . Each test cartridge contains chemic ally sensitive biose nsors on a [employer] ip that are config ured to perform spec ific tests. The microfabricated sensors measure analyte concent ration by an electroch emical assay. POC Sample Type Venous (test code = 6690) POC Clean Dev (test Yes code = 6672) Performing Lab (test MDA Main Main Ca mpus code = 88199) [facility] Cli nical Lab, [address] [place] [address]; Varnish Mixer: Margarita Jacob MD; Waived Point of Care Testing - Gabrielle aaron MD Lab Interpretation Abnormal (test code = 90538-0) [facility] VBG+[id number] 03:40:13 Test Item Value Reference Range Interpretation Comments POC VB pH (test code 7.46 7.31-7.41 H = 2746-6) POC VB pCO2 (test 42 See_Comment [Automate d message] code = 2021-01) The system [employer] generated this result transmitted ref erence range: 41 - 51 mmHg. The reference r pinky was not used to interpret this result as normal/abnor mal. POC VB pO2 (test 61 mmHg code = 2705-2) POC VB TCO2 (test 31 See_Comment H [Automate d message] code = 2026-11) The system [employer] generated this result transmitted ref erence range: 24 - 29 mEq/L. The reference r pinky was not used to interpret this result as normal/abnor mal. POC VB Bicarb (test 30 mmol/L 23-28 H code = 91653-9) POC VB Base Ex (test 5 mmol/L [...] chemic ally sensitive biose nsors on a [employer] ip that are config ured to perform spec ific tests. The microfabricated sensors measure analyte concent ration by an electroch emical assay. POC Sample Type Venous (test code = 6690) POC Clean Dev (test Yes code = 6672) Performing Lab (test MDA Main Main Ca mpus code = 44323) [facility] Cli nical Lab, [address] [place] [address]; Varnish Mixer: Margarita Jacob MD; Waived Point of Care Testing - Gabrielle aaron MD Lab Interpretation Abnormal (test code = 17152-8) [facility]2023-02-09 00:46:13 Test Item Value Reference Range Interpretation Comments Ammonia (test code = 18 See_Comment [Autom ated message] The 48130-7) system which ge nerated this result tra nsmitted reference range : 11 - 51 mcmol/L. The re ference range was not u sed to interpret this result as normal/abnormal . [facility]2023-02-09 00:46:13 Test Item Value Reference Range Interpretation Comments Ammonia (test code = 18 See_Comment [Autom ated message] The 04877-4) system which ge nerated this result tra nsmitted reference range : 11 - 51 mcmol/L. The re ference range was not u sed to interpret this result as normal/abnormal . [facility]2023-02-09 00:46:13 Test Item Value Reference Range Interpretation Comments Ammonia (test code = 18 See_Comment [Autom ated message] The [address] [place] [address]) system which ge nerated this result tra nsmitted reference range : 11 - 51 mcmol/L. The re ference range was not u sed to interpret this result as normal/abnormal . [place] 052493-02-09 00:46:13 Test Item Value Reference Range Interpretation Comments Ammonia (test code = 18 See_Comment [Autom ated message] The [address] [place] [address]) system which ge nerated this result tra nsmitted reference range : 11 - 51 mcmol/L. The re ference range was not u sed to interpret this result as normal/abnormal . [facility]2023-02-09 00:46:13 Test Item Value Reference Range Interpretation Comments Ammonia (test code = 18 See_Comment [Autom ated message] The [address] [place] [address]) system which ge nerated this result tra nsmitted reference range : 11 - 51 mcmol/L. The re ference range was not u sed to interpret this result as normal/abnormal . [facility]2023-02-09 00:46:13 Test Item Value Reference Range Interpretation Comments Ammonia (test code = 18 See_Comment [Autom ated message] The [address] [place] [address]) system which ge nerated this result tra nsmitted reference range : 11 - 51 mcmol/L. The re ference range was not u sed to interpret this result as normal/abnormal . [place] 052493-02-09 00:46:13 Test Item Value Reference Range Interpretation Comments Ammonia (test code = 18 See_Comment [Autom ated message] The [address] [place] [address]) system which ge nerated this result tra nsmitted reference range : 11 - 51 mcmol/L. The re ference range was not u sed to interpret this result as normal/abnormal . [facility] -[id number] 16:59:59 Test Item Value Reference Range Interpretation Comments Molecular Diagnostics (Received) Yes (test code = 8400) Beaker Ap Link (test code = 81090) [id number] Block Number (Qualitative) (test BLANK code = 8193) Outside Accession (Qualitative) [id number] (test code = 8405) [facility] -[id number] 16:59:59 Test Item Value Reference Range Interpretation Comments Molecular Diagnostics (Received) Yes (test code = 8400) Beaker Ap Link (test code = 71512) [id number] Block Number (Qualitative) (test BLANK code = 8193) Outside Accession (Qualitative) [id number] (test code = 8405) [facility] Spec[facility] -[id number] 16:59:59 Test Item Value Reference Range Interpretation Comments Molecular Diagnostics (Received) Yes (test code = 8400) Beaker Ap Link (test code = 00415) [id number] Block Number (Qualitative) (test BLANK code = 8193) Outside Accession (Qualitative) [id number] (test code = 8405) [facility] -[id number] 16:59:59 Test Item Value Reference Range Interpretation Comments Molecular Diagnostics (Received) Yes (test code = 8400) Beaker Ap Link (test code = 91174) [id number] Block Number (Qualitative) (test BLANK code = 8193) Outside Accession (Qualitative) [id number] (test code = 8405) [facility] -[id number] 16:59:59 Test Item Value Reference Range Interpretation Comments Molecular Diagnostics (Received) Yes (test code = 8400) Beaker Ap Link (test code = 58813) [id number] Block Number (Qualitative) (test BLANK code = 8193) Outside Accession (Qualitative) [id number] (test code = 8405) [facility] -[id number] 16:59:59 Test Item Value Reference Range Interpretation Comments Molecular Diagnostics (Received) Yes (test code = 8400) Beaker Ap Link (test code = 09744) [id number] Block Number (Qualitative) (test BLANK code = 8193) Outside Accession (Qualitative) 22:[id number] (test code = 8405) [facility] -[id number] 16:59:59 Test Item Value Reference Range Interpretation Comments Molecular Diagnostics (Received) Yes (test code = 8400) Jael Ap Link (test code = 53387) [id number] Block Number (Qualitative) (test BLANK code = 8193) Outside Accession (Qualitative) [id number] (test code = 8405) [facility] 14:02:11 Test Item Value Reference Range Interpretation Comments Archived Material The test is to be (test code = 81358) performed on tissue from case [id number]. The case report, slides, and blocks for the cited accession were retrieved from archives. The pathologist examined the candidate H&E slide and selected the block appropriate to the specifications of the ordered molecular analysis. Unstained slides and H&E slide were prepared and forwarded to [facility] where the subject molecular test will be performed. Results will be reported separately. [facility] 2022-12-04 14:02:11 Test Item Value Reference Range Interpretation Comments Archived Material The test is to be (test code = 13146) performed on tissue from case [id number]. The case report, slides, and blocks for the cited accession were retrieved from archives. The pathologist examined the candidate H&E slide and selected the block appropriate to the specifications of the ordered molecular analysis. Unstained slides and H&E slide were prepared and forwarded to [facility] where the subject molecular test will be performed. Results will be reported separately. [facility] 2022-12-04 14:02:11 Test Item Value Reference Range Interpretation Comments Archived Material The test is to be (test code = 20204) performed on tissue from case [id number]. The case report, slides, and blocks for the cited accession were retrieved from archives. The pathologist examined the candidate H&E slide and selected the block appropriate to the specifications of the ordered molecular analysis. Unstained slides and H&E slide were prepared and forwarded to [facility] where the subject molecular test will be performed. Results will be reported separately. Pathologist [facility] PTEN Mutation Material Request 2022-12-04 14:02:11 Test Item Value Reference Range Interpretation Comments Archived Material The test is to be (test code = 05047) performed on tissue from case [id number]. The case report, slides, and blocks for the cited accession were retrieved from archives. The pathologist examined the candidate H&E slide and selected the block appropriate to the specifications of the ordered molecular analysis. Unstained slides and H&E slide were prepared and forwarded to [facility] where the subject molecular test will be performed. Results will be reported separately. Pathologist [facility] PTEN Mutation Material Request 2022-12-04 14:02:11 Test Item Value Reference Range Interpretation Comments Archived Material The test is to be (test code = 65939) performed on tissue from case [id number]. The case report, slides, and blocks for the cited accession were retrieved from archives. The pathologist examined the candidate H&E slide and selected the block appropriate to the specifications of the ordered molecular analysis. Unstained slides and H&E slide were prepared and forwarded to [facility] where the subject molecular test will be performed. Results will be reported separately. [facility] 2022-12-04 14:02:11 Test Item Value Reference Range Interpretation Comments Archived Material The test is to be (test code = 15771) performed on tissue from case [id number]. The case report, slides, and blocks for the cited accession were retrieved from archives. The pathologist examined the candidate H&E slide and selected the block appropriate to the specifications of the ordered molecular analysis. Unstained slides and H&E slide were prepared and forwarded to [facility] where the subject molecular test will be performed. Results will be reported separately. [facility] 2022-12-04 14:02:11 Test Item Value Reference Range Interpretation Comments Archived Material The test is to be (test code = 74298) performed on tissue from case [id number]. The case report, slides, and blocks for the cited accession were retrieved from archives. The pathologist examined the candidate H&E slide and selected the block appropriate to the specifications of the ordered molecular analysis. Unstained slides and H&E slide were prepared and forwarded to [facility] where the subject molecular test will be performed. Results will be reported separately. [facility]K [facility] Material [id number] 14:02:06 Test Item Value Reference Range Interpretation Comments Archived Material The test is to be (test code = 82161) performed on tissue from case [id number]. The case report, slides, and blocks for the cited accession were retrieved from archives. The pathologist examined the candidate H&E slide and selected the block appropriate to the specifications of the ordered molecular analysis. Unstained slides and H&E slide were prepared and forwarded to [facility] where the subject molecular test will be performed. Results will be reported separately. [facility] Material [id number] 14:02:06 Test Item Value Reference Range Interpretation Comments Archived Material The test is to be (test code = 20364) performed on tissue from case [id number]. The case report, slides, and blocks for the cited accession were retrieved from archives. The pathologist examined the candidate H&E slide and selected the block appropriate to the specifications of the ordered molecular analysis. Unstained slides and H&E slide were prepared and forwarded to [facility] where the subject molecular test will be performed. Results will be reported separately. [facility] [id number] 14:02:06 Test Item Value Reference Range Interpretation Comments Archived Material The test is to be (test code = 02494) performed on tissue from case [id number]. The case report, slides, and blocks for the cited accession were retrieved from archives. The pathologist examined the candidate H&E slide and selected the block appropriate to the specifications of the ordered molecular analysis. Unstained slides and H&E slide were prepared and forwarded to [facility] where the subject molecular test will be performed. Results will be reported separately. [facility] [id number] 14:02:06 Test Item Value Reference Range Interpretation Comments Archived Material The test is to be (test code = 19420) performed on tissue from case [id number]. The case report, slides, and blocks for the cited accession were retrieved from archives. The pathologist examined the candidate H&E slide and selected the block appropriate to the specifications of the ordered molecular analysis. Unstained slides and H&E slide were prepared and forwarded to [facility] where the subject molecular test will be performed. Results will be reported separately. [facility] Material [id number] 14:02:06 Test Item Value Reference Range Interpretation Comments Archived Material The test is to be (test code = 26227) performed on tissue from case [id number]. The case report, slides, and blocks for the cited accession were retrieved from archives. The pathologist examined the candidate H&E slide and selected the block appropriate to the specifications of the ordered molecular analysis. Unstained slides and H&E slide were prepared and forwarded to [facility] where the subject molecular test will be performed. Results will be reported separately. [facility] Material [id number] 14:02:06 Test Item Value Reference Range Interpretation Comments Archived Material The test is to be (test code = 82376) performed on tissue from case [id number]. The case report, slides, and blocks for the cited accession were retrieved from archives. The pathologist examined the candidate H&E slide and selected the block appropriate to the specifications of the ordered molecular analysis. Unstained slides and H&E slide were prepared and forwarded to [facility] where the subject molecular test will be performed. Results will be reported separately. [facility] [id number] 14:02:06 Test Item Value Reference Range Interpretation Comments Archived Material The test is to be (test code = 77759) performed on tissue from case [id number]. The case report, slides, and blocks for the cited accession were retrieved from archives. The pathologist examined the candidate H&E slide and selected the block appropriate to the specifications of the ordered molecular analysis. Unstained slides and H&E slide were prepared and forwarded to [facility] where the subject molecular test will be performed. Results will be reported separately. [facility] EGFR [facility] Request 2022-12-04 14:02:01 Test Item Value Reference Range Interpretation Comments Archived Material The test is to be (test code = 26179) performed on tissue from case [id number]. The case report, slides, and blocks for the cited accession were retrieved from archives. The pathologist examined the candidate H&E slide and selected the block appropriate to the specifications of the ordered molecular analysis. Unstained slides and H&E slide were prepared and forwarded to [facility] where the subject molecular test will be performed. Results will be reported separately. [facility] EGFR [facility] Request 2022-12-04 14:02:01 Test Item Value Reference Range Interpretation Comments Archived Material The test is to be (test code = 89507) performed on tissue from case [id number]. The case report, slides, and blocks for the cited accession were retrieved from archives. The pathologist examined the candidate H&E slide and selected the block appropriate to the specifications of the ordered molecular analysis. Unstained slides and H&E slide were prepared and forwarded to [facility] where the subject molecular test will be performed. Results will be reported separately. [facility] EGFR [facility] Request 2022-12-04 14:02:01 Test Item Value Reference Range Interpretation Comments Archived Material The test is to be (test code = 77128) performed on tissue from case [id number]. The case report, slides, and blocks for the cited accession were retrieved from archives. The pathologist examined the candidate H&E slide and selected the block appropriate to the specifications of the ordered molecular analysis. Unstained slides and H&E slide were prepared and forwarded to [facility] where the subject molecular test will be performed. Results will be reported separately. [facility] EGFR [facility] Request 2022-12-04 14:02:01 Test Item Value Reference Range Interpretation Comments Archived Material The test is to be (test code = 46773) performed on tissue from case [id number]. The case report, slides, and blocks for the cited accession were retrieved from archives. The pathologist examined the candidate H&E slide and selected the block appropriate to the specifications of the ordered molecular analysis. Unstained slides and H&E slide were prepared and forwarded to [facility] where the subject molecular test will be performed. Results will be reported separately. [facility] Request 2022-12-04 14:02:01 Test Item Value Reference Range Interpretation Comments Archived Material The test is to be (test code = 26587) performed on tissue from case [id number]. The case report, slides, and blocks for the cited accession were retrieved from archives. The pathologist examined the candidate H&E slide and selected the block appropriate to the specifications of the ordered molecular analysis. Unstained slides and H&E slide were prepared and forwarded to [facility] where the subject molecular test will be performed. Results will be reported separately. [facility] Request 2022-12-04 14:02:01 Test Item Value Reference Range Interpretation Comments Archived Material The test is to be (test code = 95450) performed on tissue from case [id number]. The case report, slides, and blocks for the cited accession were retrieved from archives. The pathologist examined the candidate H&E slide and selected the block appropriate to the specifications of the ordered molecular analysis. Unstained slides and H&E slide were prepared and forwarded to [facility] where the subject molecular test will be performed. Results will be reported separately. [facility] EGFR [facility] Request 2022-12-04 14:02:01 Test Item Value Reference Range Interpretation Comments Archived Material The test is to be (test code = 50894) performed on tissue from case [id number]. The case report, slides, and blocks for the cited accession were retrieved from archives. The pathologist examined the candidate H&E slide and selected the block appropriate to the specifications of the ordered molecular analysis. Unstained slides and H&E slide were prepared and forwarded to [facility] where the subject molecular test will be performed. Results will be reported separately. [facility] ERBB2 [facility] Material [id number] 14:01:56 Test Item Value Reference Range Interpretation Comments Archived Material The test is to be (test code = 20398) performed on tissue from case [id number]. The case report, slides, and blocks for the cited accession were retrieved from archives. The pathologist examined the candidate H&E slide and selected the block appropriate to the specifications of the ordered molecular analysis. Unstained slides and H&E slide were prepared and forwarded to [facility] where the subject molecular test will be performed. Results will be reported separately. [facility] Material [id number] 14:01:56 Test Item Value Reference Range Interpretation Comments Archived Material The test is to be (test code = 23616) performed on tissue from case [id number]. The case report, slides, and blocks for the cited accession were retrieved from archives. The pathologist examined the candidate H&E slide and selected the block appropriate to the specifications of the ordered molecular analysis. Unstained slides and H&E slide were prepared and forwarded to [facility] where the subject molecular test will be performed. Results will be reported separately. [facility] Material [id number] 14:01:56 Test Item Value Reference Range Interpretation Comments Archived Material The test is to be (test code = 52039) performed on tissue from case [id number]. The case report, slides, and blocks for the cited accession were retrieved from archives. The pathologist examined the candidate H&E slide and selected the block appropriate to the specifications of the ordered molecular analysis. Unstained slides and H&E slide were prepared and forwarded to [facility] where the subject molecular test will be performed. Results will be reported separately. [facility] Material [id number] 14:01:56 Test Item Value Reference Range Interpretation Comments Archived Material The test is to be (test code = 66575) performed on tissue from case [id number]. The case report, slides, and blocks for the cited accession were retrieved from archives. The pathologist examined the candidate H&E slide and selected the block appropriate to the specifications of the ordered molecular analysis. Unstained slides and H&E slide were prepared and forwarded to [facility] where the subject molecular test will be performed. Results will be reported separately. [facility] Material [id number] 14:01:56 Test Item Value Reference Range Interpretation Comments Archived Material The test is to be (test code = 18097) performed on tissue from case [id number]. The case report, slides, and blocks for the cited accession were retrieved from archives. The pathologist examined the candidate H&E slide and selected the block appropriate to the specifications of the ordered molecular analysis. Unstained slides and H&E slide were prepared and forwarded to [facility] where the subject molecular test will be performed. Results will be reported separately. [facility] Material [id number] 14:01:56 Test Item Value Reference Range Interpretation Comments Archived Material The test is to be (test code = 57989) performed on tissue from case [id number]. The case report, slides, and blocks for the cited accession were retrieved from archives. The pathologist examined the candidate H&E slide and selected the block appropriate to the specifications of the ordered molecular analysis. Unstained slides and H&E slide were prepared and forwarded to [facility] where the subject molecular test will be performed. Results will be reported separately. [facility] Material [id number] 14:01:56 Test Item Value Reference Range Interpretation Comments Archived Material The test is to be (test code = 97131) performed on tissue from case [id number]. The case report, slides, and blocks for the cited accession were retrieved from archives. The pathologist examined the candidate H&E slide and selected the block appropriate to the specifications of the ordered molecular analysis. Unstained slides and H&E slide were prepared and forwarded to [facility] where the subject molecular test will be performed. Results will be reported separately. [facility] MTOR [facility] Request 2022-12-04 14:01:51 Test Item Value Reference Range Interpretation Comments Archived Material The test is to be (test code = 40843) performed on tissue from case [id number]. The case report, slides, and blocks for the cited accession were retrieved from archives. The pathologist examined the candidate H&E slide and selected the block appropriate to the specifications of the ordered molecular analysis. Unstained slides and H&E slide were prepared and forwarded to [facility] where the subject molecular test will be performed. Results will be reported separately. [facility] Request 2022-12-04 14:01:51 Test Item Value Reference Range Interpretation Comments Archived Material The test is to be (test code = 03009) performed on tissue from case [id number]. The case report, slides, and blocks for the cited accession were retrieved from archives. The pathologist examined the candidate H&E slide and selected the block appropriate to the specifications of the ordered molecular analysis. Unstained slides and H&E slide were prepared and forwarded to [facility] where the subject molecular test will be performed. Results will be reported separately. [facility] Request 2022-12-04 14:01:51 Test Item Value Reference Range Interpretation Comments Archived Material The test is to be (test code = 60189) performed on tissue from case [id number]. The case report, slides, and blocks for the cited accession were retrieved from archives. The pathologist examined the candidate H&E slide and selected the block appropriate to the specifications of the ordered molecular analysis. Unstained slides and H&E slide were prepared and forwarded to [facility] where the subject molecular test will be performed. Results will be reported separately. [facility] Request 2022-12-04 14:01:51 Test Item Value Reference Range Interpretation Comments Archived Material The test is to be (test code = 15972) performed on tissue from case [id number]. The case report, slides, and blocks for the cited accession were retrieved from archives. The pathologist examined the candidate H&E slide and selected the block appropriate to the specifications of the ordered molecular analysis. Unstained slides and H&E slide were prepared and forwarded to [facility] where the subject molecular test will be performed. Results will be reported separately. [facility] Request 2022-12-04 14:01:51 Test Item Value Reference Range Interpretation Comments Archived Material The test is to be (test code = 19026) performed on tissue from case [id number]. The case report, slides, and blocks for the cited accession were retrieved from archives. The pathologist examined the candidate H&E slide and selected the block appropriate to the specifications of the ordered molecular analysis. Unstained slides and H&E slide were prepared and forwarded to [facility] where the subject molecular test will be performed. Results will be reported separately. [facility] Request 2022-12-04 14:01:51 Test Item Value Reference Range Interpretation Comments Archived Material The test is to be (test code = 83338) performed on tissue from case [id number]. The case report, slides, and blocks for the cited accession were retrieved from archives. The pathologist examined the candidate H&E slide and selected the block appropriate to the specifications of the ordered molecular analysis. Unstained slides and H&E slide were prepared and forwarded to [facility] where the subject molecular test will be performed. Results will be reported separately. [facility] 2022-12-04 14:01:51 Test Item Value Reference Range Interpretation Comments Archived Material The test is to be (test code = 05536) performed on tissue from case [id number]. The case report, slides, and blocks for the cited accession were retrieved from archives. The pathologist examined the candidate H&E slide and selected the block appropriate to the specifications of the ordered molecular analysis. Unstained slides and H&E slide were prepared and forwarded to [facility] where the subject molecular test will be performed. Results will be reported separately. [facility] 2022-12-04 14:01:46 Test Item Value Reference Range Interpretation Comments Archived Material The test is to be (test code = 67532) performed on tissue from case [id number]. The case report, slides, and blocks for the cited accession were retrieved from archives. The pathologist examined the candidate H&E slide and selected the block appropriate to the specifications of the ordered molecular analysis. Unstained slides and H&E slide were prepared and forwarded to [facility] where the subject molecular test will be performed. Results will be reported separately. [facility] 2022-12-04 14:01:46 Test Item Value Reference Range Interpretation Comments Archived Material The test is to be (test code = 01825) performed on tissue from case [id number]. The case report, slides, and blocks for the cited accession were retrieved from archives. The pathologist examined the candidate H&E slide and selected the block appropriate to the specifications of the ordered molecular analysis. Unstained slides and H&E slide were prepared and forwarded to [facility] where the subject molecular test will be performed. Results will be reported separately. [facility] 2022-12-04 14:01:46 Test Item Value Reference Range Interpretation Comments Archived Material The test is to be (test code = 58826) performed on tissue from case [id number]. The case report, slides, and blocks for the cited accession were retrieved from archives. The pathologist examined the candidate H&E slide and selected the block appropriate to the specifications of the ordered molecular analysis. Unstained slides and H&E slide were prepared and forwarded to [facility] where the subject molecular test will be performed. Results will be reported separately. [facility] 2022-12-04 14:01:46 Test Item Value Reference Range Interpretation Comments Archived Material The test is to be (test code = 32833) performed on tissue from case [id number]. The case report, slides, and blocks for the cited accession were retrieved from archives. The pathologist examined the candidate H&E slide and selected the block appropriate to the specifications of the ordered molecular analysis. Unstained slides and H&E slide were prepared and forwarded to [facility] where the subject molecular test will be performed. Results will be reported separately. [facility] 2022-12-04 14:01:46 Test Item Value Reference Range Interpretation Comments Archived Material The test is to be (test code = 11320) performed on tissue from case [id number]. The case report, slides, and blocks for the cited accession were retrieved from archives. The pathologist examined the candidate H&E slide and selected the block appropriate to the specifications of the ordered molecular analysis. Unstained slides and H&E slide were prepared and forwarded to [facility] where the subject molecular test will be performed. Results will be reported separately. [facility] 2022-12-04 14:01:46 Test Item Value Reference Range Interpretation Comments Archived Material The test is to be (test code = 80851) performed on tissue from case [id number]. The case report, slides, and blocks for the cited accession were retrieved from archives. The pathologist examined the candidate H&E slide and selected the block appropriate to the specifications of the ordered molecular analysis. Unstained slides and H&E slide were prepared and forwarded to [facility] where the subject molecular test will be performed. Results will be reported separately. [facility] 2022-12-04 14:01:46 Test Item Value Reference Range Interpretation Comments Archived Material The test is to be (test code = 08584) performed on tissue from case [id number]. The case report, slides, and blocks for the cited accession were retrieved from archives. The pathologist examined the candidate H&E slide and selected the block appropriate to the specifications of the ordered molecular analysis. Unstained slides and H&E slide were prepared and forwarded to [facility] where the subject molecular test will be performed. Results will be reported separately. [facility] 2022-12-04 14:01:41 Test Item Value Reference Range Interpretation Comments Archived Material The test is to be (test code = 00500) performed on tissue from case [id number]. The case report, slides, and blocks for the cited accession were retrieved from archives. The pathologist examined the candidate H&E slide and selected the block appropriate to the specifications of the ordered molecular analysis. Unstained slides and H&E slide were prepared and forwarded to [facility] where the subject molecular test will be performed. Results will be reported separately. [facility] 2022-12-04 14:01:41 Test Item Value Reference Range Interpretation Comments Archived Material The test is to be (test code = 75962) performed on tissue from case [id number]. The case report, slides, and blocks for the cited accession were retrieved from archives. The pathologist examined the candidate H&E slide and selected the block appropriate to the specifications of the ordered molecular analysis. Unstained slides and H&E slide were prepared and forwarded to [facility] where the subject molecular test will be performed. Results will be reported separately. [facility] 2022-12-04 14:01:41 Test Item Value Reference Range Interpretation Comments Archived Material The test is to be (test code = 51012) performed on tissue from case [id number]. The case report, slides, and blocks for the cited accession were retrieved from archives. The pathologist examined the candidate H&E slide and selected the block appropriate to the specifications of the ordered molecular analysis. Unstained slides and H&E slide were prepared and forwarded to [facility] where the subject molecular test will be performed. Results will be reported separately. [facility] 2022-12-04 14:01:41 Test Item Value Reference Range Interpretation Comments Archived Material The test is to be (test code = 03228) performed on tissue from case [id number]. The case report, slides, and blocks for the cited accession were retrieved from archives. The pathologist examined the candidate H&E slide and selected the block appropriate to the specifications of the ordered molecular analysis. Unstained slides and H&E slide were prepared and forwarded to [facility] where the subject molecular test will be performed. Results will be reported separately. [facility] 2022-12-04 14:01:41 Test Item Value Reference Range Interpretation Comments Archived Material The test is to be (test code = 68141) performed on tissue from case [id number]. The case report, slides, and blocks for the cited accession were retrieved from archives. The pathologist examined the candidate H&E slide and selected the block appropriate to the specifications of the ordered molecular analysis. Unstained slides and H&E slide were prepared and forwarded to [facility] where the subject molecular test will be performed. Results will be reported separately. [facility] 2022-12-04 14:01:41 Test Item Value Reference Range Interpretation Comments Archived Material The test is to be (test code = 50558) performed on tissue from case [id number]. The case report, slides, and blocks for the cited accession were retrieved from archives. The pathologist examined the candidate H&E slide and selected the block appropriate to the specifications of the ordered molecular analysis. Unstained slides and H&E slide were prepared and forwarded to [facility] where the subject molecular test will be performed. Results will be reported separately. [facility] Request 2022-12-04 14:01:41 Test Item Value Reference Range Interpretation Comments Archived Material The test is to be (test code = 57720) performed on tissue from case [id number]. The case report, slides, and blocks for the cited accession were retrieved from archives. The pathologist examined the candidate H&E slide and selected the block appropriate to the specifications of the ordered molecular analysis. Unstained slides and H&E slide were prepared and forwarded to [facility] where the subject molecular test will be performed. Results will be reported separately. [facility] Request 2022-12-04 14:01:36 Test Item Value Reference Range Interpretation Comments Archived Material The test is to be (test code = 04492) performed on tissue from case [id number]. The case report, slides, and blocks for the cited accession were retrieved from archives. The pathologist examined the candidate H&E slide and selected the block appropriate to the specifications of the ordered molecular analysis. Unstained slides and H&E slide were prepared and forwarded to [facility] where the subject molecular test will be performed. Results will be reported separately. [facility] 2022-12-04 14:01:36 Test Item Value Reference Range Interpretation Comments Archived Material The test is to be (test code = 86493) performed on tissue from case [id number]. The case report, slides, and blocks for the cited accession were retrieved from archives. The pathologist examined the candidate H&E slide and selected the block appropriate to the specifications of the ordered molecular analysis. Unstained slides and H&E slide were prepared and forwarded to [facility] where the subject molecular test will be performed. Results will be reported separately. [facility] 2022-12-04 14:01:36 Test Item Value Reference Range Interpretation Comments Archived Material The test is to be (test code = 75767) performed on tissue from case [id number]. The case report, slides, and blocks for the cited accession were retrieved from archives. The pathologist examined the candidate H&E slide and selected the block appropriate to the specifications of the ordered molecular analysis. Unstained slides and H&E slide were prepared and forwarded to [facility] where the subject molecular test will be performed. Results will be reported separately. [facility] 2022-12-04 14:01:36 Test Item Value Reference Range Interpretation Comments Archived Material The test is to be (test code = 99325) performed on tissue from case [id number]. The case report, slides, and blocks for the cited accession were retrieved from archives. The pathologist examined the candidate H&E slide and selected the block appropriate to the specifications of the ordered molecular analysis. Unstained slides and H&E slide were prepared and forwarded to [facility] where the subject molecular test will be performed. Results will be reported separately. [facility] 2022-12-04 14:01:36 Test Item Value Reference Range Interpretation Comments Archived Material The test is to be (test code = 51903) performed on tissue from case [id number]. The case report, slides, and blocks for the cited accession were retrieved from archives. The pathologist examined the candidate H&E slide and selected the block appropriate to the specifications of the ordered molecular analysis. Unstained slides and H&E slide were prepared and forwarded to [facility] where the subject molecular test will be performed. Results will be reported separately. [facility] 2022-12-04 14:01:36 Test Item Value Reference Range Interpretation Comments Archived Material The test is to be (test code = 29678) performed on tissue from case [id number]. The case report, slides, and blocks for the cited accession were retrieved from archives. The pathologist examined the candidate H&E slide and selected the block appropriate to the specifications of the ordered molecular analysis. Unstained slides and H&E slide were prepared and forwarded to [facility] where the subject molecular test will be performed. Results will be reported separately. [facility] 2022-12-04 14:01:36 Test Item Value Reference Range Interpretation Comments Archived Material The test is to be (test code = 74397) performed on tissue from case [id number]. The case report, slides, and blocks for the cited accession were retrieved from archives. The pathologist examined the candidate H&E slide and selected the block appropriate to the specifications of the ordered molecular analysis. Unstained slides and H&E slide were prepared and forwarded to [facility] where the subject molecular test will be performed. Results will be reported separately. [facility]ologist [facility] Interpretation 2022-11-27 23:08:26 Test Item Value Reference Range Interpretation Comments Materials Received (test p6irzJFiNLNozLNwCrLk code = 9973) HJXiVFJkc6ttVOTsbUXo ZzEwMzNcZnRuYmpcdWMx EOOiEwIkw3ssy316sFAc k2bwMMOiAhP5jROhBDUb xMEaR411CSYrYKdji3ya m8PfHDExxYXim3L8SKRQ mpxtxVt7wAtbZ78ug9W0 CxjoQ2wdVQStPFZdB7Xo PR1rXCUxJyt7HLB6DHE9 UWWjANNkE3EnLE8jJINa pIDhBNw3y0yxuBfzDBSd FUF0q7xtVMrlemSdCC8f mr3zvVh4j7gjqbLjCFDe FPKosPEQTRAqV1ZfnSbq Ar3mgVm8yTquZeyhYSV4 Agw3NS1dmy75moe5gAps PODqiostDdF8FXpzDCBy eyrtRCj1PFnbLINfvPas MFxtYXJncjcyMFxtYXJn eNZ3GCHbzBXwG5TzOGHx HTmyIKBsfbr9EqGzPi4q aVRbyUrxZVpux0mxl4po iDRpVfy8ONYuHoZtLoxv STpbf7Vts5gyAJPbcx7f JUV3bQYbsLumt8A4aEMt XRVcoJLhymQrQWHdnd64 lXXyzHNraLAspw3qevHg mWFvoUAeSDZ6nPUvvyMc ALXnsEWrSQFgSZ1yfMQp BXHilO4mmvbtHHCbLjLt jlyxRHZnvZwajuMpZm8m fZejBEE0HFjgM7fjmK7z PoV3YDkrG7eehT8qTGq7 AJcflLT1CDXelI4tKX5t rrfgx1cuFlEmOH3lrhzj e6lrEjWlRZ3lbmw1s3rr JQE3HOtxWXTxWfC9odV0 NDBcaGVhZGVyeTcyMFxm l009KIR9YxEbVJCsj5Uf Z6WurZuvY48piCehD97g YZQtqTajxO0osMcddE9b IyAuKzOsRJn7er70TQt7 xdpsiXcnGCb8qhZpSXZj XYM7YHDepTAbHJOgQ2f3 jeWrABJnRUR9HTAalOEs JLZdF3r2yfOkPXR3YZu7 cnBhZGRmdDNcdHJwYWRk YjBcdHJwYWRkZmIzXHRy uGVgbUGqzLCxtW0yvKue VQEzwGCutD4cUER1VNTr cmgzMjBcdHJoZHJcbHRy gj62MEHkfuQqtWWvrNmt aHTaIIJ8QTStKEZcSPGh TTR7MOXyKpHvodOmEJii bGJyZHJiXGJyZHJzXGJy TTD2VAMtLmDenpFlAXxq bGJyZHJsXGJyZHJzXGJy HTG6MPSwZnZjbxUiMPir bGJyZHJyXGJyZHJzXGJy PAD9XTHxLiLcfvXnFBix bHBhZHQxMFxjbHBhZGZ0 J8avxEWrXMXsOGpvkZUo XUQfW6eesBEfAWsyBRLu cGFkZmwzXGNscGFkYjBc H6quKFGrIqLrQ2QgpQo8 MDAwXGNsdmVydGFsdFxj dZFnIIA3DYJeJNRoGMMl RJW4CBCqDqVdchXfTJpc bGJyZHJiXGJyZHJzXGJy IBM7TNSyKeAtmnVeEXol bGJyZHJsXGJyZHJzXGJy MIO7WSGrVjWjgyUpOLfl bGJyZHJyXGJyZHJzXGJy AQS5AKPvRlWqtpBaVBap bHBhZHQxMFxjbHBhZGZ0 Y5udkJChRGGoFTlhtJGn GDCmA4yemQEeGMhxHMHv cGFkZmwzXGNscGFkYjBc D2ykGHDpXdTdR5VbpUp0 NjAwXGNsdmVydGFsdFxj jLHjRJO5YRSgWPJjNOIf TJT4OMScPpXibsZkBYay bGJyZHJiXGJyZHJzXGJy NUF2LRNfIqRbjhTaZIhn bGJyZHJsXGJyZHJzXGJy ODO4EARmJtXdmhQnCSlr bGJyZHJyXGJyZHJzXGJy YYF2LEHkDnLyayLgNNwh bHBhZHQxMFxjbHBhZGZ0 Q0ttqIYvDZPcAGejmHZr HEBzH2zqeNNpKDpsLRUz cGFkZmwzXGNscGFkYjBc Y6lgGDVjMlDzH7RawXn1 McOgPPDzskOydX95Kacu i1AeUXVkGXA2OCozJHpv bFxwbGFpblxmMVxmczIw PTkfqccxJKKsKGsuU7ok CkDjUMLedLvtONtyr9Xs XGYxXGNmMlxmczIwXGIg VQTdELAmtT1kNdewF1Bx eD6zHHteUmajF4zaKCDf e3GanR9rNYalhUVpaatl MVxmczIwXGxhbmcxMDMz PSekJ4xrLgAmYHGcwAtd TJdyi4GrUPMdJYUgIzyv jfYuSPg4knUzKPDjbBgd nVUtYOaybwFftSfsn7Mj biZqbLhiQYGmCKx5jiNy bxahaAz2wKVtoZqlIONo rZmyiC0eIyYkQeGsPCjp bGFpblxmMVxmczIwXGxh qeckOUQcSIykO9pgHgLy CMVddBjoQNeol7WfUNCe LIQhVpbhswOzINGwI44a bGVjdGVkXHBsYWluXGYx XGZzMjBcbGFuZzEwMzNc aGljaFxmMVxkYmNoXGYx SJceN5enLbFlM8KoEACy QkUddYCkG5heW7YvdYar YXJkXGludGJsXHNzcGFy YBZ8cGEwoxHjfDCogYXh QEGxIXilXKZ5eBXwticz oTGzlfmsAGccrrS7RGZt YWluXGYxXGZzMjBcbGFu ZzEwMzNcaGljaFxmMVxk CpBiVBHdQFyiV3nxTcPx T9IuELQbZmYbIrRVEAMr aXZlZFxwbGFpblxmMVxm czIwXGxhbmcxMDMzXGhp L8luAnDcURRzzUqjSWaf c1CdFZZoLWHkKybzqaDz XSd4jeZiSBExqIxujD30 Crdtpa63UPLqg0ntQBOv P7HbsSSaTZBfjXUtDLqi MDhcdHJwYWRkZmwzXHRy cGFkZHIxMDhcdHJwYWRk ZnIzXHRycGFkZHQwXHRy sUKtYOQ8C4p6ywTmZKHf DNo5biPeLRBaMqVejMBf BKR4JAj9OrjztnJ6pCUw Y6s6SrwtecBkJPtnrWTe rr27AQZwbtLqvLXjuAja dOWsSTO2VJItMDSnLNVm VST9ZQGmPaUlyvRuMUnp bGJyZHJiXGJyZHJzXGJy WBD2TEXbOsXkujQmLLfm bGJyZHJsXGJyZHJzXGJy JLC9NZCjRjLwcrCaUNcv bGJyZHJyXGJyZHJzXGJy SDW3ZYPoNiNdkdNaKBby bHBhZHQxMFxjbHBhZGZ0 Q1rroTUtOAExUQmzqUWx AKNbZ9pqbRKuGOlvBAFl cGFkZmwzXGNscGFkYjBc O7azEOLaYkZcT5GvkFs0 MDAwXGNsdmVydGFsdFxj nREwTQK0WRTxIZAhEVYv JNC0AMFlNtRppaIeVVvg bGJyZHJiXGJyZHJzXGJy GXV4GVDkSpZwimCaSDnn bGJyZHJsXGJyZHJzXGJy ZGW9TOEnQjDttnDuFBnj bGJyZHJyXGJyZHJzXGJy POS9MLVyRyGjwxSiDMhm bHBhZHQxMFxjbHBhZGZ0 T5zbrLHkXGFeMIcntGHn NULpX6wseTClMNgeTSAn cGFkZmwzXGNscGFkYjBc Z7uaWNWoWjNxA0KgdQr2 NjAwXGNsdmVydGFsdFxj yYNpWBU3XLPgEQEmWHUw CYD7CCGqLrNowhNkWHnr bGJyZHJiXGJyZHJzXGJy FHO1YCUvLbPtoqOnMIgx bGJyZHJsXGJyZHJzXGJy YGR7QRKkSbZtjnMlNSpb bGJyZHJyXGJyZHJzXGJy ZZT9GNNcWeDamjTmFPlt bHBhZHQxMFxjbHBhZGZ0 I4xlzBSlWGRnJHwrsSBz OKXhR6ewrCKyUAttAOCw cGFkZmwzXGNscGFkYjBc P3vfRNXzChOtF9DevSk5 PrAtALEpnvKdkA92Oqir f1ZzTQWrHHI4SGlmZWij bFxwbGFpblxmMFxmczI0 XHBsYWluXGYxXGZzMjBc bGFuZzEwMzNcaGljaFxm AIjyRhLtFPGqTCpjZ9ip TuJhE0YaHKHvLjKwHK7o ApX8IVXeSYexRQQ3ZUOT OQFiMSGCE8MRUfrtYPQP O8KbaUsmjF7mZhCnYhEo ESiqPL8lBPHbU8wwxQUq FKUwOTMhY6cgYkNhmT9r aFxmMVxjZjJcZnMyMFxs dHJjaFxjZWxsXHBhcmRc gJ97Yjaox6ThQOGqHLX5 MFxzMFxxbFxwbGFpblxm GHcphlN7EDDjGPozUXLm XGZzMjBcbGFuZzEwMzNc aGljaFxmMVxkYmNoXGYx EKhzI8kaMkDyU3MaFPSa MjAgMTIvMTYvMjAyMlxw bGFpblxmMVxmczIwXGxh pkdfWBNuYHonS3lrMxFo LTKjvOkcSUpun9UeMFNx BDUyCxwcmsZtMDq4tfAd XGNlbGxccGFyZFxpbnRi hJzeb0VpbcDhgIdeBIZf XHFsXHBsYWluXGYwXGZz ZhHdoYwddN8qTkZsVjQq QAfzRF1fFSKnA7ybpGPr DCHyQNReK1bnQsZgjO5k aFxmMVxjZjJcZnMyMCAx KgU1CvWqGnArmOsxfH7r FfGtOcChKHziLR5yAXMa K0qkuMFyLYWkUKXyZ7zz NuUecI9ehSpaHLufDiCb ZnMyMFxsdHJjaFxjZWxs LRrndRXzIVPxx6lmKQAa NIKxwRXkYHI7gMDxggNl gKcivYffzO9fDtOxFrHu NFxwbGFpblxmMVxmczIw SCvvonytDCVxECaoH0mh HwHdXTBdoJdaHRnas5Ps XGYxXGZzMjBccGFyfQ== Addendum 1 (test code = b5oksZCjYCDhlTPmABHv 37) DgvegzIuYBHxdTQtX7Tr uhzbIMgvRS6eBO4orIlg rSDszHEfOIXuKyQei3bb z495nWNgp3ujNTXVSKgg OWQRVDe1b6saVMYTdoeg fJi7wJgmJ07wo0W5Wghn D20kpMVbBOO5WWKeCRIs uWHjUFAdBFN8UMVhqTEe W2nhJXEgXF6wyqmfJLkx MOknVYYwhCJ2TXGbxUFk W3VuCTLsLTbaJMQkgbi1 BaLnYe0euJDflLyjSWul YXJkXHBsYWluXGYxXGZz MjAgQXQgdGhlIHJlcXVl k6Vqc6EtgGwpGSImDQE1 cZ4lDMGojGEbQ7ufzdB7 cBIuAv4elM59yV1pLRQ1 tSTcAGLeo1DlBAGlQSJl y8EzUYNmNH9vLNnifTGm eIQkvDFnKFK8OW9CFITt AUCvs37jTjHzcAIvKRVc tpGcgEEuELIkJQZ1iI8t ciBjZWxscyBhcmUgbmVn CPJdncVmJa1xVNrboiOh MMUaHUVqqMDsxS82ac0v cOF9k2YtJP9qL8BzSXZv BYh8a8tdUvJfxETgZDTd gmHozTBrXTGcYBZ9yC4e tmKvCVpuodXktsMvyM0t aXRpdmUgIGZvciBjbGVh ngLiVP9IVGDLMIKaOVJ0 VYAuEZDkoUIhjF49am2c sVR3i6MvXH6aB9MdPTTy IVg0u2xoJbUshNLgRJCi iyBLGD6XNNXqF5prcoNc MjJDMywgRGFrbyBQaGFy xBT4RYSCl30zwG3nKPJD u8NbzHt1HBCOI17dCSWk Z9QPCGpniCMhwLAyvkT3 aGFuIDFccGFyXHBhclxp HNWqTGTdj0U0CCmnUy9f dQA0tS7wOUEjBPP6PHVl aXMgYXNzYXkgaXMgbWFu tVUpK4T3kyZoDXF9IDBl aWxlbnQgRGFrbyBhbmQg rCAfkiEjIA1qoa2rjS8u JGzgTB80yY5YXS9SEWgw H4rsddDtPiMXHg7xMWGu mKHjvIMvOv4haHIlGE0m IQTwrr4poAutTXDqjDLa IHBhcmFmZmluLWVtYmVk CQUcMNRgm7C0FJV8o9bd DkRrjyNNH3blBK56QPAn t54nILF0q3J3LNkwZIWu NK5aHQPmcEdqXFNlRlMp CVVmRFN5HUA5tO7zKOnt vKwfTRFtx7LsF6kdkZKk NDW3CQPfIYQdRQ68FfHt uGVpGLHtGYp5MRfdZSIk sCLkyuKlYEIxueC1c8Mj TCGcXVEdk32iVL3sk29f SQahS82tc8WxMlRsn3Cv k3IjA1kgjWKgcDshltZb aNOqVP5iUAFahwOqpC9w kWRrs7EjcBrtIFBaK39p MuacPCPblM5byFJehkYg j6RrjiHhAZAWPybesQQc L4XcT4CdHMDwQUJyqkQ7 mMGlfoAuRhJnCE4rAOWZ SYqiWAJ2OPjvuU7zQDRk lKftJQj7wHInfTUnvF21 MRArrnSjcHFte8UjP6Dz gOCzy7uzx2zeWfDaUT8c mzFzc9UjKDM2TRrhjY5u DS1kNVKdtIWegpLgerWq oYg1GQt3uBDez3X7uPWm THLzXZEuTZMww1FgOEmb puFtepO1iOYhlDZen4Oy RHLoONZcmL34sQ5tZE2n eZOwLF9igNJtv0WoF5w4 n3VhOBCihSZbd5XnqA1l cwuli2OuUN54GQunqGSt k5q9bMxaSPi6eOAbFJWc uOR2rNOyyZ87TOugeeXw WvXfGX4eUMXaSKUfAQRw zgNcw6u5HYJ1tM1awlCo ZWxscywgbXVsdGlwbGll ZCBieSAxMDAuIFRoZSBt QIzhcWGaPGYvo9GaLPrs KFYdXiekYBJdUOAcL5YN QRQiLK6gaPKrMXkwBNBf clxwYXJkXHBhcn0= Diagnosis (test code = q8oqjPMtYXBbnOFfDDWd 34) PpluttLvPKJfwPWtW8Rj xxycTNjbGY6pYX8jgYie wMBwrBZmUFLwNxZqk6no r197mWQgt1ruKNKSwdwp mYs3rYipV67ty6G3Yinm O8snWQGtYIlrEHLoAOkb kMJvLXo0AOXiyWSqolHy CvFdSNVphTVcvMD5NJKh MB7pilzdYIadOEmhUJUo jfV5JFXbnMYvF2XyWRLr KF0lqvgpEDM6JOglCQNk CZJ2JvZjJVWtq9Dtppk2 MjBccGFyZFxwbGFpblxm czIwXGNmMSBPdXRzaWRl BZnlShxQZkB9PiYfJXgl P0YcUXToDoqNO3vXFTQb THXHTkhzP51fyXQmbGCh YY6vZTYyWhX3LuFtHoLp JpjjQREbP9NuNQKxyqwm dBsoIKviaQ07TsKzPnTw r1GrGFJ7melaEJQcw9Px cSjfxEFfXTgqRsA6JMyz lE18MfQyuMalViG8GSUH NLKVZ3lDHXMVM9ARBeED UTUNCG8UKDCuWQWTBAVD XKCYPf3wYIlLNWMrNNFj Z20fpCGyvVptWYAgoGRp XGxpMFxmaTBcbGluMCBN RFcvRkxaIFxwYXJ9 Comment (test code = k6xfjBVcHTBnzHCpSHDs 9835) BbecheMtYCWpaTTdU6Kt zzapUNwvMW5aZQ4vhMqa pHAmsMRsRKJxYgMsa7wv h150xYAel0ouDNMWbcda qRf0rGznX50wf9E0Hmld A26pnQZvLYK9HZAzSURa rKJwZRZzPFP4IQMbcJIf U2obXISsNQ8vtoieRHrq WWitAGWdaOC6BXClmQAp K4QiWIAyMXhbMFMnnrm4 XkNoUz0itDWwzDioJTvl YXJkXHBsYWluXGZzMjAg Y8TvfRa1sHQnQYgvoPDe j6dek0NaF3jldNglVQoi k6JsyW2oSWYhpwTouq0d ZCBieSByZWZlcnJpbmcg xN3xlUn3hQIos79xz9il phT1aAB1NTTYIaYioZty bGlnaHRzIHRoZSBlcGl0 aGVsaWFsIGNlbGxzLCBh bmQgcDYzIGFuZCBwNDAg cPpjoJkyP8l0ncT4dCTs bXlvZXBpdGhlbGlhbCBj JVsgea2dJJXpKQQcf9Km gZ3oy2d5FOFyYLOenO07 xs8hpDIed3D9gACorXQn c7AgfW5hhNh7KAReDqR1 hUyyNOEsTSWzqABhI7Y5 yB5vUcYubQPxuX== [employer](s) (test l7ihuNBkSGFzfOTbJSBg code = 9841) ZcgfmoLwYJIbhZEqS1Jk tluoPMvhIN7yTX4liYpz sHDymFYxHCLxVrEti3ku g713iUYgz8gaUEVBnuil fCt4qQsfR15ap9S8Rojk Q8zlANQyPQscGJKvVOuy nHGoTVx1NVZxkGWhutFs KgIcIZQlgESqeUW8ULVu LU0qgkuiSJrsWVfqUTPp azU2EUTxcMFlV4RnJFZr CY6gizoyJGV6CXhbVDXc MWO0NfHmBPCdb8Qfocn5 MjBccGFyZFxwbGFpblxm guUhCNS0cE0ePUCdd6Ea OiAgXGNmMSAyMjpJUzE4 NzBccGFyfQ== Disclaimer (test code = z9yvzOSgXGRyuTTzEiFd 9844) JSPhSYKsc3fuUBWflXRm ZzEwMzNcZnRuYmpcdWMx OAYjSgYym8aax736uVTa e9oxNXOaVhJ5eRDxKKEc uHBlT168ONPxZOgxh3kv m4ArWOScgZFkr2H3GKFC ogjawFv5vLlcX26df7W2 TocvF1weRKPfAFCpD1Nv XR5jNMTpWri7LNI8XUB9 FVPzSOKnQ8TdTN4sSYDa pNNxMLo0q5hxbLlqIDFu HGM2n1xxDWxpmtRhIE7w vz0flLo4q9fpwgItFEBb UWSmsLCBXEFyJ6DmzFzt Hr3kfSx6mKwtOuygRIL3 Rjn6OL6afm59jdk3iMrh PCRonundQtY3MAuqRUYf rwrsFDi3IEcxIWWjuOQ7 OCTphAKeD0XhKLTzDA7f fsq7UGH5EAtxSIMwLlO8 NDBcaGVhZGVyeTcyMFxm v483AQM8RbJvDN2tJ8Ts q5A2gV9yiOVfXDUpuIJj HhZtFTNutv3gmFYaGZkg t4GvLYN2hcV0oKWspNGo TZEmSN69Frfgu8UhZmei PHP0KPRkbtCbl1Lsr5kq QnJgwsOvO1tfJ0OgOGSq YLYyLTEcIgJwqtZdv4Bu v3LcyUMupZe0n1wkPIKk BOBsfPzmk8ovXRT3KWHc Q2G4hUJqu9kbAWctHNKp kVC6biR8XZHptVAxX1Bq hB5wPGMrYB0hnrf2w8jf GSU1TOpbKIHsThO5jiX3 NDBcaGVhZGVyeTcyMFxm w407UHV7KxEjTFPpn6Nd J1ZnbJdaD87mbGviK74s WIAdmGdpwS6zsGombT6w ZjBcZnMyNFxxbFxwbGFp cbvsTDnjrqL5YSzeeghb VXEhZQdkL9brSlQtRXZn fLmtDHxma2RrVCCvEQHg AvnqmxG9KYIKt53uFPAl v7GgPUFkaR8mpXSgNYtu ysRiuBO2SOnharZmYxKg wbUiKZPqkY7kDDVpYY6m SBIameYrww5ugoZzOXAa JPUsG8MkuvtuwShqkkOa ZZBtqu9xuxAaPCJ4UPGP JS1EYRTmPRKqk11pECZj oFphyM8znSHhejHiXLCi l1FwpS9ckCBBDKDcN9ys QP9aKSmxq8FizFVjbPBw cYA2RDMfk8UhBvBqrwMp bYIimUIfT9YizNzoX6tc LJOjLYImcpCvnBGac0Yq DUImaML8dBTaZI3GEoAZ b91fWQRbIIWHdvYaIOCa mNyymFP7pjH2wC4uKwXP ZiBhcHBsaWNhYmxlLCBj v872aa3qvhK9DRQaMXDu okkel4TnUZHfZSWrhF84 HVAyJEFyrf8mcgypeCSi pvGwS0Xefrs0hM7kDYHm YWluXGYxXGZzMjJcbGFu ZzEwMzNcaGljaFxmMVxk CfUyTDMiQStpG5kgXnPy ZnMyMlxwYXJ9 [facility] 2022-11-27 23:08:26 Test Item Value Reference Range Interpretation Comments Materials Received (test z6ygxPUfFBRrtVNhLqQi code = 9973) LABmXCIwm9wxYMEouUIa ZzEwMzNcZnRuYmpcdWMx PDZzJaIuy4lmt002zDHf m0kuZZKnBvK2iGJbIDCf lWKzV987VNIrDHizq4ny z2UxHMMzxZYtb7C7AGCD esakdKe7yHlvN57ii6Z2 KrzgF3hsPCAoYNIhF9Gc FX3aYXGbRez8JZP5OZB1 VPSnYYKnV7NiTR0pWIIw kOQzTMz1h7joaGlxRDUu CAF5z7rfNLzylxPaUN2k df7kdPa5o6bhshVrXPVf KLSweDANUJKyV0BufBvu Bh3rnGg2xNiqGyuqABA6 Rzb2HA0mio42dyp4sVnz RHViixwoFfG9JBzqIKOf omuwIZq9YTuqSLQwhMyf MFxtYXJncjcyMFxtYXJn lIW6ODSfmBKwW6BdYPWe JIsnEAGhjng5ZbRzDg8i qTNclSmrYWvfk6idj9vd tUPyMxh0EJXsYyLpWkzi YFghg4Yrk6naAEJflp8u MQZ4sJCesEmna1W0lYTu OFAslUPbceDyVONoil98 rGRdgLMtpQMeky7xpkKv zSYouQPsNYT5nVIfuxNy JLNxwAMtCTBgTJ3egRUy GULjeY0vivimGNGoKmKw nuauFNXvyZzytqRnAf9p eMudCLM2LVkrX6lesO9d TfI1FZpyT8auyR8oWOr7 ZGaqrAX2KFPltX9pBV6h kmmyx4klRoKuPK9udbos e5jeIhTsTP3rxzj9z7pv SWM3HUqiJBHkFjH3hmR0 NDBcaGVhZGVyeTcyMFxm z944FYN9JfTcVXGlf6Oo E5IsoPakF03dgWrgM14j JWJbzFhowM4ptKlyqM4n FyJiCzPnGPp6gt61KRp1 pochfQzpMKb7veFgBKVz HJK9ZUAxnNQpCIDeN3f3 igOrMTRlPKP1TDRrrJFw QZCbS1e6ysWoMTM1HGh0 cnBhZGRmdDNcdHJwYWRk YjBcdHJwYWRkZmIzXHRy pAHylEYkhJTrgK4rkYmo SHWspETcaZ3pXSG5YAXj cmgzMjBcdHJoZHJcbHRy cj06LOKfwmBzhVLpsZoj oOQcGOI8BDXcIMBtHZYl HUZ2MIBdMdRjcvKtSHht bGJyZHJiXGJyZHJzXGJy BNG2WSHdKdZmafJpCAdb bGJyZHJsXGJyZHJzXGJy HKK5BAQxKyZurjLpIEwx bGJyZHJyXGJyZHJzXGJy VAL4EMCyVfYznqSjAKlq bHBhZHQxMFxjbHBhZGZ0 S3ejwMFtAMSvNOhwyHVi IBDmN6yssUFlPCgpVUBi cGFkZmwzXGNscGFkYjBc Z6edBHCnZxGqN0WfgFn5 MDAwXGNsdmVydGFsdFxj hURcXWR2CNNvWWZcRTVt HMG7TYUrEgFkqbLvIMmh bGJyZHJiXGJyZHJzXGJy YRZ9VUDvJsOdswWyVCty bGJyZHJsXGJyZHJzXGJy JSK3DUHoBhYsksFxBWyj bGJyZHJyXGJyZHJzXGJy DWE7DIYjVaKogzAmKIvs bHBhZHQxMFxjbHBhZGZ0 C8ozxEHqREXtEGrbqXFo ZAQvB0nijKVhNQweATPc cGFkZmwzXGNscGFkYjBc N3mwFMLyWoUtE8MfjTe9 NjAwXGNsdmVydGFsdFxj zGZyOTD3HITbACRxSUGr DBB7DBIvOyVodqTfBGik bGJyZHJiXGJyZHJzXGJy YTX7ONOlJcGqqoXwHUak bGJyZHJsXGJyZHJzXGJy MKX0TUVyFsXqoqXqWKsx bGJyZHJyXGJyZHJzXGJy ZKR5QDLeViNzncJnIZjo bHBhZHQxMFxjbHBhZGZ0 G0pwkAIeVXWrPZzahOOl OXDaU1jumPJoRJncOUPu cGFkZmwzXGNscGFkYjBc E3bzKUIxRuJdP3CsmUm7 NgAwBGCypiZawD48Kkge v0CfBTXhYOC8OZuwJKnu bFxwbGFpblxmMVxmczIw PQdggnicVSIxWSgfL0lb OuDoSDCetEerARdbc8Gk XGYxXGNmMlxmczIwXGIg VSFrHIKipZ2pDymcT3Dp lD0pXYavMhasE2eaGFUe c9GpyS4fFYzmzJNgyoqj MVxmczIwXGxhbmcxMDMz WUdqD0wmYgViWCWabTax RFwsp8OsTIDnNJCvFlyl jxNpRWm8mkKlQCJvlGki uATyJLikhxKkfEdim1Lf yjCmxKinGKGoJFn9isJf fevonGs5lJYzhNnmTJDg bZwnrN6uXtIvPxCkSHkd bGFpblxmMVxmczIwXGxh sacvXSGuCKcrM0ozTqNs JMQufBytWWrmr5DtXZKk AWRfPstrvyCeVIFhD29l bGVjdGVkXHBsYWluXGYx XGZzMjBcbGFuZzEwMzNc aGljaFxmMVxkYmNoXGYx JSsxB0hkNjOpT4ImRTZf HfIsnZXyA2yvK7ClkDhn YXJkXGludGJsXHNzcGFy JNK4xNNrgbPuhWTgxUQe PCLuQZaoGAD2rYZscgxz tKQjbvnfHLfmbdW0DAVk YWluXGYxXGZzMjBcbGFu ZzEwMzNcaGljaFxmMVxk ZzJsPPRrVFbnN3kdFqEq U3ZaYFHkYfXnAbRAAGZy aXZlZFxwbGFpblxmMVxm czIwXGxhbmcxMDMzXGhp Y3mpZnFaKQCrwYstLHsb s1LtBKCiEXHrVuqazvDb BAr2nwLnYJBwlHiudC45 Hzqdgr19KNMkl7ynMZAk U3CzdJXxYYUbsNUkINwu MDhcdHJwYWRkZmwzXHRy cGFkZHIxMDhcdHJwYWRk ZnIzXHRycGFkZHQwXHRy hTYpOUV2E8b1feDkTGJa DYz5aeEwVFNkCmXqoDMl QPL6YKr0ZzrazxK0vBIl M1k2TtjhxoCpVQpeqZKk tp01QYEnuoDkhPXobCjg aRUkRPG2ZGNyZIUqSANw AGY3NKOdVyPysaRcVHwi bGJyZHJiXGJyZHJzXGJy HUM5OTQeJmKidtSpYNyp bGJyZHJsXGJyZHJzXGJy SSW9NYLeTcWqnmPgNClt bGJyZHJyXGJyZHJzXGJy TQL8MAJlJuWzhwXgZKsh bHBhZHQxMFxjbHBhZGZ0 U1bchFLvTYNnCAyesSPx GEKiN1nuzPIeNKrqLVXw cGFkZmwzXGNscGFkYjBc S8wyFTAdFmPyB6ExdWm4 MDAwXGNsdmVydGFsdFxj oWKgJFP5NSLmIIRqEIQe ZMU2MEYmJeHsnyRyKExe bGJyZHJiXGJyZHJzXGJy DQD2GRXiSiUhpdBiTQtc bGJyZHJsXGJyZHJzXGJy YKS7RCUhSeKveuHmVWtt bGJyZHJyXGJyZHJzXGJy NDH6MDQcLxRmxhMiGCiw bHBhZHQxMFxjbHBhZGZ0 E5mxxKMaLZBnUJwhnIZd HDHcL6phpFFpSPtnDHYb cGFkZmwzXGNscGFkYjBc A2uuTYByYtFmS4NfsDb9 NjAwXGNsdmVydGFsdFxj bDBxYMS0FOCcMUSiTYOr ERH1VLWoSdXtthQvQDjo bGJyZHJiXGJyZHJzXGJy TAR3YBTnVpLmfcSsXYrl bGJyZHJsXGJyZHJzXGJy JNY9HIXeGiPefsKuKOqr bGJyZHJyXGJyZHJzXGJy IXI5KJPpKjEzdoClCRsy bHBhZHQxMFxjbHBhZGZ0 F7fhrNQbAUGnQJmzcTTq GCWfG2mkaTWyMLwqBEDi cGFkZmwzXGNscGFkYjBc I4mqQVFbHqCkV7RmrTn5 LmYkFOJiwoVssK69Rrkm c8UaKDZgKZG8WYyaCKpk bFxwbGFpblxmMFxmczI0 XHBsYWluXGYxXGZzMjBc bGFuZzEwMzNcaGljaFxm KLgtMwWnNPEsLZlnE7rc TiXaE6ZbVUArXhBwTM5o SwR5UMSgDOfeVCE0YPJP DGSfNMQNX6PBNeabWLRD M4MdbYkbxW8oVgSkJkSb LMacFK0pTHLpN6jgeIKh IKVpNAWpH0seWyQtaG6y aFxmMVxjZjJcZnMyMFxs dHJjaFxjZWxsXHBhcmRc sP06Wkojz0RhPPXbQOE2 MFxzMFxxbFxwbGFpblxm PHgozhY1SVMdEDvhIPRt XGZzMjBcbGFuZzEwMzNc aGljaFxmMVxkYmNoXGYx MCegM3rvGfAlS7UaGYTd MjAgMTIvMTYvMjAyMlxw bGFpblxmMVxmczIwXGxh zaraNOVeJBffX4kiZvWm GIBglGbfCRthg7VcIOZi RVJjHoawgzFnULy5jzCd XGNlbGxccGFyZFxpbnRi cOulb7ZepxNvqOrqKENj XHFsXHBsYWluXGYwXGZz DtYnrSexsA9cUpAqLpNw HNxtJS8xEYHsX0qfsARz CRVfLFCfN0fgPiXolL0n aFxmMVxjZjJcZnMyMCAx RbU8MsVmDrTdzUheqO4d AoJsGiGzAZfpJA8eSMTs E9mgbZZpTBWnIUQkW6ci UbZepT4idZspJAhhCeEu ZnMyMFxsdHJjaFxjZWxs DWnztOBmBJFnf7frZOFw AVLoiKBiJPP6eYBoipBj xYjqqXlplQ2aRpRbPjSj NFxwbGFpblxmMVxmczIw WVldamkzYYCjUAwzB3pk WuDaDLSukKwjKUfvt6Sj XGYxXGZzMjBccGFyfQ== Addendum 1 (test code = d5bcxFAeEBPzkZDtOJQr 37) ZjjphxGlVZIhtTKrD3Pa inwrFGlwHQ5lBN6gsEwt dOWxxNFqTLXnUlHvh8vx m907wSQvm1vjNWDGAEmn JMWKUHw9x7wlWWHGzira nZp4vXfbD24ru2Y5Pknl X18ijNYkYJW2BHBvBGEi sYUkVTHePRI4PEItgSIb R5ngPGAcSR3qaxsrIEhc JIqgLGKorTL2AOSzxTYp P0OmFOZwVRquJPWblue0 BdPpNn0mfTCgxKzcAMof YXJkXHBsYWluXGYxXGZz MjAgQXQgdGhlIHJlcXVl z7Ieq3TfcDukNLTyEQF8 lL2iWVWusUGmA8stjlL2 vFVhXb5bmY93sA7dUGF0 lYSwKJOlf1PcBTMfRBXc o1NrBXFqVR5oJRpukHXl nDIruHHrJKW5LK8TPDKz TUWzh64sMsHkzBZjOVOk utNunXPeSBAlFMJ2wM6d ciBjZWxscyBhcmUgbmVn RSMmmuSqJp9wINxosaRt YDOkUOXfrXDhdF75vu6h uFH7p6OePT5fD9NkQJPn EDz6y2nsJfDjoCXgYJEc emPwpSLmXIXoFBQ2nS2m zyFuYDoyufXuycCciA4i aXRpdmUgIGZvciBjbGVh jaQuNA6UMGXYFESaMWV8 FAFpXMSvyICjmM23wd0a zBW1w3MbNE6tO6KvROKr TNl8z2psYzDytLZgOROd yyPEAO4HYDJqP1wpisUk MjJDMywgRGFrbyBQaGFy dJB6DNCKk85xfG3eSQUP z2PwaJq8BUGSM03sJHDc O9FJDPixoSDcsSZyngP2 aGFuIDFccGFyXHBhclxp JGYoMXVoj2L1OZmcFo9w dNN0dD9iQOYrXRG7OCBf aXMgYXNzYXkgaXMgbWFu dZIvT1E4bgIiIQG2YXZl aWxlbnQgRGFrbyBhbmQg kQCmrqQgKF9ufc2stZ3s QAvgCX81eL7JBT0COWar P0mmaaYlAsETVg7jQDLu uHKicCKiQb3jiVLoBE0i GPZmod6hvTyjQWLzmNHv IHBhcmFmZmluLWVtYmVk TKXbUSLob4J1ZXX2b5us EeFpmbTYT5zsSD48QTQq c65ePHG5g8V1VDrxTWQs WN2pXVNgsIjnRRWvXvPu XCKpZFH7HTH8hJ9jXTrv oMckDTLes8LhY7fgpLHy QTU5YIHnGHNsIK48NiOr rCIeZXEyKCk4IVrkVJVq iBYlrsQnBBUyknG8l2Nx KJLgCSHio02lWP8mo50s KTxlB13du6XdRdWkr9Uc d2UiR0chdYLwsTcllyEn uUSePY1cIDOllzTgeR2n iKRzq2BleDtwTPNfY85b NaqhGRWkmL6ybZJzoeCq b9RzooEfOCNMUiouyZMj K9NsF6IoHTTzAJUxiwH7 iPHnjwKoVqGjBN4wWGLZ LJfkCOM8EByukO6oZHXb iSrpNCw0lEFdeUUvxF43 ZVUhgdSvtHQuu0ZaT5Ft rSZbj4zlf1mmHuFyUG7z awUgb4BiLFI5TYlakW9p XM3tZGJsgSKpvgHzxfUh wRv1QOm0lFKcs5F3fVJy QMAeMCBwPVSkp6DmOCag lrSpfbX0jMDvkYQor8Zg ODXlXRIszJ26vZ0nDL5j sUCpTJ7juJXfh4DsZ0s3 s4KrEUYrlJFyf1PnoJ4a sxnsj4BqNT42NEiaqWTn h6r2eLjyTUh0nVDgMKDp yOP3yOXchJ70CDtnpxDs GbCzUD0kHJAfODLfWEMx qpFaf7f9TJY9kK8sioFq ZWxscywgbXVsdGlwbGll ZCBieSAxMDAuIFRoZSBt KKfoiPTmRXRky9PpUFoc OGTsHqsxUEKhBCNsR7AO AHTuZG6zoNOfQJmgIFDr clxwYXJkXHBhcn0= Diagnosis (test code = m6plgNSxNTYgxCInQFVg 34) ZsnowtPgANMlyBSrG3Uf fcjhKOeuGR0oNY0waIji gZRmcLRnNEQxBoIec5fw b981sKYxf8diIHHNakoi hFs8pTmgR50di2F2Kfla T3zlRGZqKXinUVKsPCuz wNAgREp8DBHnlXImneHm HiEwUAYtsSZuyLL1ACUc EV1grucwLQcfUBssCPNf spF5TBZdpZTlS9LvUYJa KA6dwtmoBAC5QVzjRVWx MYU7YdUxRARep5Uvwis5 MjBccGFyZFxwbGFpblxm czIwXGNmMSBPdXRzaWRl LKzeGzrKSlT7LnMiFJex I1NoGKMlTzoIG4iAVEEd KQJMZqbyC13vlYXtlPLq IC3gEEZvCfP0MyBwIqIu TvukQIGjT1TaJDEpgolo qTrvACrnhO89RbWfNpNu m5DaKVB5dubeEVTuj9Gc xIykwSCjCAkrCgW2SUbc aN66ZsYyjBhvWvU4EUVP XTUVC4sDOYXDZ3EGMlYC PASHNK7IMMTyHGNWXVUP PCHUEt2zNXrHRJTnRPKo L54tfWDjrOanQGKkdVNy XGxpMFxmaTBcbGluMCBN RFcvRkxaIFxwYXJ9 Comment (test code = p6phrSYfRCRbcQCeWSOa 9803) EfcuxhRdALZmwTUbU3Gh vedwSAgdHF1mOZ1xoBeg tXIjhRJdWSHhLwQql4ez k899wZDmo5niQGSCbiue rDr7hKfgF02md0S9Wxpx D66mtYGaWWQ6FUQzCJSn uWLoUCFnBKM3APTqkTAw C8myOIIcNK3itdgvODdc NGydTTMxqDA8MZUuyQMb C1LhMCJbZXmfPHGsfyv3 YtBlNf3lqNCvmFfkNQcx YXJkXHBsYWluXGZzMjAg D6TmnAt6vXOhFUihoCXg r0ysn1JdY4qprDjkSSkk d8KduK9ySURpfxXlko9p ZCBieSByZWZlcnJpbmcg zO7emSc0hDVto43lc5zw gkQ6nSS1QOKKCzGumTix bGlnaHRzIHRoZSBlcGl0 aGVsaWFsIGNlbGxzLCBh bmQgcDYzIGFuZCBwNDAg eFjvpTflV8a3txZ1sOCe bXlvZXBpdGhlbGlhbCBj WLvpah3kHZNeAQRgi8Gi vZ5gt4m7GUKtGZWjnF80 ra4ipDPor7Y6lPMliTZt d5LhbX5axGp1ELMkXaU9 eCrvFTRuNFZgeLZeV6W5 hE9aRcLwlRLkrE== Biomarker Block(s) (test e1msmAOxBKJicQGbAUUx code = 9841) TecstdHuZOUloELkE5Cx zoffMIcsCK5eSI8ayKpm aTFuxUFoTKZpWyMqa9ir e290wUDig4wiVDKDywzf qVf5qHjcU43ci5I4Fzwk P2fjSYAcCGoaHTDhVLcv pBQiACk0TPQaaBFdrxLe OsFiHLJpwCEcxLY0OOJj RX8gkexjMKnwYOxpDOHe zbF1MJAysEMnM8XbIPOo LB6oilohOKB4TFbdGHIk KXI3RfQwPNKuo2Xfyxb8 MjBccGFyZFxwbGFpblxm lvVqMVM3tT8vKBUdv4Os OiAgXGNmMSAyMjpJUzE4 NzBccGFyfQ== Disclaimer (test code = v8phgKAkUVUsaCPiCqGe 9844) LCDyUBXfn4qwGBDblJCd ZzEwMzNcZnRuYmpcdWMx FSCzOlDre8tmg136sMUj o4fpDOAgSrB9uJQdIVUv wTYlD046GNVyHAztq5dq a1QkNZSsxZCcp3D1DNQJ qoujhIu2cZzkC68xg9Z5 RzgyD3csEJJbEUNbL2Sn AB2mDSMtCel0CRX3LFP6 LPXiLDAzW7CeSZ3wHAWm hEKgPSm1d8kjoBthJEUa XBS7a3yaDDjgbbSyRK5y tt4qiGt0r1fwykFnSILk YBRoiJXWPPYrK9EaxUxn Sb1oiBk1uLpnOdhaKMC0 Sna8EY3rjn85ynf6vMmv IEXesxejFmZ9DRldBDJm dchdRGk6JTbzNWHcsPD3 BQSsiLXvV2SmGAZmMG8u efa8FIQ2BEwxTNOyDvZ8 NDBcaGVhZGVyeTcyMFxm d876CYP5KxLfGD1zY6Tr c0Q7tR1scAWeNAAklVHt ZnTlOMRynr9fnEMySWln p6WsRBU8gfF0fOPkoBLj IYXpWB65Qcica1DgTtvn VRQ3ULJbfgCln6Dcm5gm OvSfxyKjS6tyK8WpLMWo WDQnWZXgEhHelcYqj1Ih v1IbwDNtrMn4y1alQDJh KOXhiAczv2hsFSL8XPLt S1E1sSTdm8odLJgyPVPm wAN5maM6USCgdVZkC7Bn dS1pZWXfSW0dvek9l3cs JWB1JLzvKULoCfQ7pxQ5 NDBcaGVhZGVyeTcyMFxm m686HQY5XlOtUNCvk2Iw S8QzcHvpD37qbMsbX50h KSLhnBtupN3siYossR4a ZjBcZnMyNFxxbFxwbGFp zqpuHNpwmwS6JDnxybvh NDGfABgrE8sqDoHwSIOl jInxFNhej6ZqHKHoWNUp KnugihV5RSGQo35wCYZk l0UhKKOogI1pyDEsRHhk qbFavGM2TMxnklIqHyWw fdFsLESkeY3gBHDiKZ0m FDVuvyDour9mbuOeIJMn UGTxU8RxhjjkrHlkfvOp HMMezz4rivAwAIP6WYDV QI1QNHOrBCBny04kLPCg sYwkpY7dzSFlhyJkASKu w6PgxB7noSRUJIKbY0pe GM8jXTjgw3SeeXZjyBFx mVO3FDWhd8HhRhCuvoOa gPDxsYRbN0WpnUudB9bt IJCtZLYfdyAkdYPez3Yp XPOrnPE9lYUrHV7ENrMD w30oDHBwILFUpfFbJZMq sNyldCH6dkA3wH3bEsWC ZiBhcHBsaWNhYmxlLCBj y499we4llvE8CXTvCWPy kpmff3WaHNVxAVJkjP43 JZJwWXFilb8ajetefEIn nfUdM1Ohwtv0dZ6fXBMj YWluXGYxXGZzMjJcbGFu ZzEwMzNcaGljaFxmMVxk DeXvVSDyVPpxU8okQkZs ZnMyMlxwYXJ9 [facility] Outside Interpretation 2022-11-27 23:08:26 Test Item Value Reference Range Interpretation Comments Materials Received (test q7tkgYQeORPhiNLfZyXb code = 9973) KKDhSQLie1fiCHCycZXz ZzEwMzNcZnRuYmpcdWMx KNDrWhXey9sxv981qMAp t0uyYLAxKkX9vAIlPVRx iRHkT353MTJrYPogj9mp o8DwFYDvxSBba0E0VEMA farwhAn2aUhuF77jb1M2 ZndkL8enLBWzOCFjW8Tq UD2kEMUgLon8UAC6LGF8 NMZgLGQxS2OxIX6aFXIi mNIdWPg3p6icrAhoPBCz JPS5s2ohJKmjtoFcIL7t yy3xbXk4r1qjodGaBEBn MMFpfJQCSJWaZ5DdbXbn Dq7ygJn7eIslJwraICT8 Kun5NY3qpb09hya0tVdw ECYxtjhdBuE5FXxvQOOf uirgEPp6XVkmGMWfnWna MFxtYXJncjcyMFxtYXJn kXE5EAIzrQZtX8MvQOFi ZRupFULarff1JjQaVk9u gLZpjNzpPHpgn0beq3ac wXYoDhq9HIRaScJbGhhg PPpbm9Cng2lsFLAmle7w YIX3qUWtxFyvz6U2aWMq VUBiqERikvZmLSJwtm00 bJHvaPYmkBIcwg8aiiGt fKJyrGKxPUM5jQJmrkYf JLXjkCJiIEJcRC9euDYr QVSxdD4dhvcnRPKjQmPh bgnvQWXqoBwjxgZkTm7x fBdfPOJ9OWggS1ruhZ5b GqF8WFxwG6fvkL3cPSs9 CBfgnKS1ULYoyW9wYZ9g ypete9omReYfVI1uwrvc i2mfJbEvOA0kari0q1oz CTC6UAbbBBMjJcF7eyV2 NDBcaGVhZGVyeTcyMFxm u002KRG2VrZxKVVed4Pc O3TbpKmmG17qcOeyR07m FXYanJyyjG8ocEwqhG2p YtMyKfYiTVm2yw42ZHh6 cxfeoAisQSy2zlQnJRDs BYC5XKMmfXTaRLRxY1r8 bpJgESQuLSX4ENKjvTJd EPOzP0s3zyItUZK7QSk4 cnBhZGRmdDNcdHJwYWRk YjBcdHJwYWRkZmIzXHRy xITyrDDvmTLpnT5uyVuy LSPzlKVqiQ6uTOQ7ZQNa cmgzMjBcdHJoZHJcbHRy ex94VMBzzzYfmPQypShm tJQiFWH5NXCeXBFfZBNl HON3ADQcJzVqghVqMQan bGJyZHJiXGJyZHJzXGJy DSG9LFJjMdZztzZwLGis bGJyZHJsXGJyZHJzXGJy XVS2CLPyPeQgfwPoBQjc bGJyZHJyXGJyZHJzXGJy TOT0IKUmWaSwzkWjYRry bHBhZHQxMFxjbHBhZGZ0 J1kkmJVlDLYkQDagoTIr CYZlZ6itxJLnHGbjOUNy cGFkZmwzXGNscGFkYjBc U4gaIYVkSiSuZ1EovWz9 MDAwXGNsdmVydGFsdFxj xNNfYHD9NBDqXLJfBPBs QGT4ZSDqVaQiwxNzCOte bGJyZHJiXGJyZHJzXGJy NAH8VTQoOoUsrpQeNAiy bGJyZHJsXGJyZHJzXGJy HCR6NGDqUvCdncDoVTzw bGJyZHJyXGJyZHJzXGJy OWI1VFUmQyJypxAtYOew bHBhZHQxMFxjbHBhZGZ0 E3rwsWBeRPDsKGjqgKTr DXGyE7fgkQVqZQvkHMNr cGFkZmwzXGNscGFkYjBc B0zvAIXkVfOwE8AiyKp3 NjAwXGNsdmVydGFsdFxj fNCpRJL7XDRlDFWsBQZh WRD4MILfExZoatMyHSys bGJyZHJiXGJyZHJzXGJy EKC5RDDfKrWwssItWBjv bGJyZHJsXGJyZHJzXGJy JQP9SZRiMzHltmAdBHju bGJyZHJyXGJyZHJzXGJy LOF0SKLwQlYjowIvXBee bHBhZHQxMFxjbHBhZGZ0 E1hgbZCnQFSmOXbnxAFu QRQmB9pxsGMoJBmmWHGq cGFkZmwzXGNscGFkYjBc J4oqTGDzDkYaC4WlgSx1 FuOjCMCvmxJysI69Kyfe w9XgMAPnYJN1PNdxBHjt bFxwbGFpblxmMVxmczIw ZDrcmjmaRAIpQHabR3wc UpRhTKDnjKitLEwea2Dm XGYxXGNmMlxmczIwXGIg RTDlDLSaxQ7sHavwR8Rs wI3gLYysTvuyS0dePDAy z6AzxA6aYSzerSLvtzmo MVxmczIwXGxhbmcxMDMz TMizO3ouYfTeQSQjdAes NKfhw1TqINThHNGpZbjk vqDoPCx4svCtQNInvVtd jSMeYGqdabJgcGgbm1It idIguQtqBXGfUVq3xqSl vetvbXp6qPKjpXbySWSf pXzbiB7wRbTcEmCpDEge bGFpblxmMVxmczIwXGxh berpUPGlMQdxF1kmDsMh VIMbsVnfUSbti2RjOBUp XVBtTbgvkxJiCAPvK07c bGVjdGVkXHBsYWluXGYx XGZzMjBcbGFuZzEwMzNc aGljaFxmMVxkYmNoXGYx OUrpA6fwBaPaN0JpSAXn DyDohLAqL7vxX9CkeLwg YXJkXGludGJsXHNzcGFy VLX4vSYaomQvdXCojXKd NLEeNPtaEMO7jQDxdlak fBHzxvyyDYcsoyQ5MYNe YWluXGYxXGZzMjBcbGFu ZzEwMzNcaGljaFxmMVxk UgFvRERpVMdrQ1jlUoYs D1AaKKGoUxXsOhVBPVXu aXZlZFxwbGFpblxmMVxm czIwXGxhbmcxMDMzXGhp W6khElDtGYMvmAljDGdj x3JdKHLbCMPxNizpwvPt ANr7ymPdIGEkrFcdgK47 Ytolcl93HSDps5mqDWPz H6ZwoCYkNZIcpVPzEEio MDhcdHJwYWRkZmwzXHRy cGFkZHIxMDhcdHJwYWRk ZnIzXHRycGFkZHQwXHRy dWAzMNT3X3y9wbAzCMJc HOl1niWlLOAmMrCxkRFr UPD8QDb1UnqqfhF8aYUq D8m9DsbbyoYdMKnrjBNj ur26FSZpybDtdSLroYpa rREvMJP3HZJqZGVtJXFz XXU5FIWiGtDizoPvQFsq bGJyZHJiXGJyZHJzXGJy MJY4KWEyCjRewfKxGCov bGJyZHJsXGJyZHJzXGJy OBZ5SEJrZsQlicPfHNpu bGJyZHJyXGJyZHJzXGJy CLC2FWHyTtTepuXzTYww bHBhZHQxMFxjbHBhZGZ0 X3bprUCeOUScWUuwtZBy ONCaE0nemWKrERltTOSs cGFkZmwzXGNscGFkYjBc N5reVLSsTyDbH2UdpPd5 MDAwXGNsdmVydGFsdFxj hTVqIYC6EJSuDWEpRJRt VVI7OKDgZcRnnwKyFJsn bGJyZHJiXGJyZHJzXGJy BSQ0QKZuGyRezfJrSFin bGJyZHJsXGJyZHJzXGJy YTS3AAXlMiDttdHwYFsr bGJyZHJyXGJyZHJzXGJy YFK3WCAgQxTwujFnMLuq bHBhZHQxMFxjbHBhZGZ0 E5ttuSEwCVBySRlamSQo AWCbA9swkMGoJLhgGIRj cGFkZmwzXGNscGFkYjBc G2miMPVrDnYhK3XncXr8 NjAwXGNsdmVydGFsdFxj eIHeBOD3JMGfBEGfALTk HZA2BATvReRtbwTlCOtl bGJyZHJiXGJyZHJzXGJy NXU5WPXqXwLdqhGlZVbr bGJyZHJsXGJyZHJzXGJy UED9OKImReUdkiMaBAqp bGJyZHJyXGJyZHJzXGJy KDB7HEMfLvIsfbXmEKbj bHBhZHQxMFxjbHBhZGZ0 S9xldKWsGICpCPtnjXTv QZAhV3xrrFUaIWarOZUb cGFkZmwzXGNscGFkYjBc S2neFJXqNqAdO3WmqHd1 BlVuAOYdkeCdwZ24Hagv x6TgAFClBMO6HGbkBMwe bFxwbGFpblxmMFxmczI0 XHBsYWluXGYxXGZzMjBc bGFuZzEwMzNcaGljaFxm OLfjWrIkBJCtPCjrN3mp RmWlM2RcCMSiKvAtUW0s RlY8ADOcDZyhKBP3DYBB LCImFRIYF1IOCzfsDRPV G0PjkYhddY0rVyKkJiJr KJzmHK4gHRYzS8xrwYYs ZIJiNVQkQ0slJnSbiW8x aFxmMVxjZjJcZnMyMFxs dHJjaFxjZWxsXHBhcmRc wO34Mubox3McKRGhEUH2 MFxzMFxxbFxwbGFpblxm LExktqL0WIUwSQkvGRAc XGZzMjBcbGFuZzEwMzNc aGljaFxmMVxkYmNoXGYx ZPtxT5jbFxGuT9AnYCBk MjAgMTIvMTYvMjAyMlxw bGFpblxmMVxmczIwXGxh rbmjFJXuCUldI1zeAcEw UZBosEmuLYxpc8NhSRNl IRBcYdznhkThOCc1xiNh XGNlbGxccGFyZFxpbnRi bHtkh7OcnkKliTxvMMYj XHFsXHBsYWluXGYwXGZz UbGspCcuvK1hGaJfAjVz POcaFW4mKHTjK5ovhYBx EHPfTEPcG1hiDgVarY0w aFxmMVxjZjJcZnMyMCAx AlU6NlSvKlChxKhwhL5c YbUiPbEpWPkhSH9gIZJk X7iapWMiSLAyZZLyD2gw AfOaqI7foZfsVHmhCnXh ZnMyMFxsdHJjaFxjZWxs LRarjNKeRBXcj9lqQVAc VPRumBUzEJW9dFKajxHj fRchgZvcrV1kJwGeXfRr NFxwbGFpblxmMVxmczIw XUqxzggkJMHoZIsjQ0ka EsAvKXRscTarUVxcv9As XGYxXGZzMjBccGFyfQ== Addendum 1 (test code = o9jppUXvQVHkyDOqSAOx 37) XhvhhcBzWSIbeOCtM0Dp mfhcJQajGN1eLK5dhFpt dVPxyYSiEVDiLlAwg8rv m153dODcc2doALEVBNqs SGFUGZe3z4ryABDFbvrp nUs3cPhvS45dw0K5Agky B74mvBVuRQM8RVRmETCr uMPjNYSdNFE7XMCgjAXn X5cgOOQyET8ylhfjXPjm BGgdYDGcgZT7ZJUoaVLs C5CyAAOeATzjFVVyhrt9 CwOxOt6tvEAlhIisJPpu YXJkXHBsYWluXGYxXGZz MjAgQXQgdGhlIHJlcXVl v9Qmw4RisIygZAYuYBY1 vL9kHQJuoDZaH7oleyO4 lPQdHl3baM05kH4dKDY9 pBVmBVAsu1JhPERuDZHq z2LxRGAbEN8jDFjysZOc jMCtsAIhJSC5ZO6UWOHp NPEik25aMxGdoXLxRUOe aiWwiIFzDQOaMTC7vD2x ciBjZWxscyBhcmUgbmVn EYZjbuEcWs6tNMegnwZf WPRqQFBzoEBveR77gr5u qQK1v3OiWG7sO0LyZCZb OLz8g8vnPfHglKUyQMRs kuGbfCUtTABkCTM9xH5v jbCoCFlsuqAcjeAviW3m aXRpdmUgIGZvciBjbGVh ckAmWL5EREHNUGBoNEX9 OGLbTAYtfPSdgQ31nm0z vVM1v3YsIG9pO7NqKOIq KRj4d3jlRpMcqLIxLGZn fsOTXC3EFWVlQ8tjwvZt MjJDMywgRGFrbyBQaGFy sBQ0HDGPr62mxC7oKGVR g3VkvTy5AZAMF75wDSHo C2YYJVwbmOSgcIUpmvA6 aGFuIDFccGFyXHBhclxp HEHfVJWbc9J1KNnkEk6u yMG2hM1aRWWhEWZ0DSIm aXMgYXNzYXkgaXMgbWFu fLTkK4V1ezAqXWE1JYZo aWxlbnQgRGFrbyBhbmQg dTQgxoNrMI9ukt5sxO5b CBffJP78qX3REV6ASYvi C8jaotIqUrWSEr9xLLFi vQZmeUPsBc2lyIYaDZ9q NPMkro6hmDzzEPFpoVWh IHBhcmFmZmluLWVtYmVk QQLvFIDdf8Y9WUZ2v3rb JyNtfgJYK3ajIK15XUNe f58xTJE5f3Q7BBfaCUDc BU7gDHPmmRuiGNFmQtUo AJBgKSA8VVE7wP0fHTtp xSidOFGgd7NwW5wdoTRc CHW7ETDkUSHhWC33MeWs zSNdGYItTYm1MUgfXWNs yDWoesEsAEAdlkI4f7Ep CAWfQEIpa94zXK8dr52q DOsxZ87vm4TkFqBko7Nx m0SaX6becUFykZyuccWq bZQsUT5kONExebJdeY7n fMKrf8YepBmdFLYiK92a DjcjPHDgnS7rrBRwjkMh f9EnxgFvOOLXCkctoYAg J2EgJ9WtVTXqKIFlyzC6 fIMxlcNzPmJaKD7aNIWV NGaqIYR8WPcgcF3yYDTt wVndYCf8aNVpzNTzdH12 NLEqwuOonXIjd5ChF0Nu oFIdl7rvt5tnLvDiCC2r doFoy5ArCFD9TEnveZ9e NB0dTELzyERsnhXybjAq sNk5KOs7eTIhj4I7tLKv NCCxBQSjRHRcf4WbTMxf loRceiW4fINmiEXsb3Qb LOCdJVMatF62fU4lFF9w fNLeIY2ubFZll8FeA0v1 e5BwVCVprKSwk1XthZ0l xnnhj0YfWC91YYgpxRPj t3u1gMmdCLz1gQJbNBWw lDQ4uMYepY95ODwlotYh CrWaKP0dIRIdRNPtJCSq zdCck1m5UOU6aL5gmmAf ZWxscywgbXVsdGlwbGll ZCBieSAxMDAuIFRoZSBt MBlepAGgDWJzy1YgBUix QTXoYleoLJIxAHHqI7YR XPHtXQ0dyFUbBCxbJRPm clxwYXJkXHBhcn0= Diagnosis (test code = u3mtcCKdKWMxjBOfHHYf 34) LurfgcBcEXSakFVyZ6Vy fambOLcyAP0lFV9enYyo kUOvgTKiGSIfIiIbf1pp e319cLSxl3cbOSAKdyae iKm5rElmJ27ru6D7Fjkd C4uxOOFkJVstTJWnEKqh dSUwKEx9WURzrCHdksTq IvVbIFNsjLQbgFH6ALRa OJ5yrvhbBFvzSEdlNSLr itF2KQQbyNMoN9JwFECe NO7nwibqZEB2YHqxVTNf ARW5HbNpZGEuh3Jejcp7 MjBccGFyZFxwbGFpblxm czIwXGNmMSBPdXRzaWRl FOopYudAQqD3LmKrXWxn B4XfOGEbAjqUO7sVJMRj OTLRYgihZ62qnFPeyKUz MQ4gFVDgPjD7VfQpViOg DrqyWUJyG3TgSAJndrxv oTecBKtfgS19YzHwVmKf a5DaKUH1ruvxETYdv5Co rLsxkDGvLBmeKyN4XQps rD30XeUrrUooXxI5QANK SRTKD4hHOHDMH6BAZdRN QCCMCD1XOMQgYHQYQSEA ISQHYd7fZCfYKQPfFAMi S98iqGBsrDglCMCzoXZh XGxpMFxmaTBcbGluMCBN RFcvRkxaIFxwYXJ9 Comment (test code = y8nfyAKwOAOlxDNmVXFz 9835) SoaujbRiSGTuuKQjH0Vp cgyaUJktOL7tTZ9heJpz fWIfeVGnJXKwYrGer3re o976vFKwt5teLJAOrblc mSd7mStyQ58nk3M9Piip G57zzDBlTTH5RXSfAPZf oJLfOQLcFKB7ZCBhoYQn U5nnFLAuIQ1nfjwhKIac NFwwFGEknLE3KVCtxMFw R1DaYNZdMRcrPFBsgsa6 PeIvNn7pwPWwbDvnFClt YXJkXHBsYWluXGZzMjAg I2UqpEw3vSEeIQucjVSy t5fzv5DfE3dewLckXPtn x9HdtG8pWIWgslVarj7w ZCBieSByZWZlcnJpbmcg mC9koHs3iUOih86od8rw kfR3xSX5XWSAKmNheUfg bGlnaHRzIHRoZSBlcGl0 aGVsaWFsIGNlbGxzLCBh bmQgcDYzIGFuZCBwNDAg nFmheNwnM0q6anD8fNLz bXlvZXBpdGhlbGlhbCBj WZrbxb5nMIWkVBCsv2Zh lM5pj6b7DPZdAPCquU17 zf6peMYmv4T7qVSzqVRd w4UcyR3kdOb1IIJoEeX1 tRnwEKCfNLBluVDaM1V7 yQ6xQiBrlWBkjN== Biomarker Block(s) (test t1cedCPpZPBvgERjRGHe code = 9841) DcborhXbYMBkaHQlN1Xw bkddURnmJA5sFO5leIsc iFThfQDjXVJjHpBvp0if j542iFJwd9noGYAVucqw fOl9nRjiO20zp2B1Uqzd Z8toDTSjDTduNHPfLKba lNDxMPv4OKKngRBktgTn TvQrOIDfbURsmFL7TSAt OX1mvyutZXzkEUuwYZHv gaG9PHZxqKJkW7DbDRWa PM3lcmwoKEA3ZTkuIZXs CKL1YeLaWEQmw4Gnyhl3 MjBccGFyZFxwbGFpblxm gfWuOWU9qT8pODMfq0Ug OiAgXGNmMSAyMjpJUzE4 NzBccGFyfQ== Disclaimer (test code = a0dbfTCiVCKrhYIkPfZy 9844) MATsOWGoy4yaAFOjeUPj ZzEwMzNcZnRuYmpcdWMx KIFgErSit4hlq360lREt q1alFABqNvS0jETrPIDm vPQoK329BVRxNGrsr1xa g1QbEIHrqDVia9O6EULZ kuywnPe9bOjeP17kv4P2 ErkeW3doTCVlHXLqR4Gz OW9sENUoPrk4KAF8ZPV6 BNDrXENmF3RsLB6cIRIl zHCeRDk1w3aizOxjPLGo VAH8t6hfYJgqyfYtPD4p mp6kpHv0k7vcwvHjMDHz GRJxlQERNIWnQ4ZnoQuz Gf2pmMm3xKhxOjirHVK5 Zce8FM1rjy85mxy4fEau AMLcnekmOlA6JAjjCEOh scneKXm1KBudETCmsMP2 QJSzcHBjI0JaOCWlHN4z lci9YVX8TGahVFDrBmK2 NDBcaGVhZGVyeTcyMFxm u474VJJ4KvTzVP1aQ1Sa o7X5sH7csNDbTZFteNZc VuImTRGivb3myROjHCki y6EqWZW6vcI1jMUewUQo EXVmGT42Zchfg2CjGzin KBD9WVNrepOcg8Wyi1su UnGpctIeI3ffL1JrOEPk EWRwLKOmGzYsxiQzj1Nj w8GtsJIsjIb2g0hrWZOd KAGnjTsjh5lqPFX8SBKs I7R5oSUyj1trRTppJJUo tUS3wnR0THRdcYXfG6Zi tK6dQICeHF1awzu6g2jz PWZ4SGdhHAHpHtL5tzF8 NDBcaGVhZGVyeTcyMFxm r424DHL1PwJoOFXjm6Mu K9YwdSjwH54vnBioC41a YGYuhKwwnJ2nwXzmeQ1n ZjBcZnMyNFxxbFxwbGFp snsoLIkdvvM2PQzfkksc OGJzTShuU7frEhPkZPUp pEchXRsjp2QxLGSeMOYk EvyznsW1KUNRh23iHPHn h3MoXROumV0fpFQqZBzz vuMxvRF7SUqhjqGlRuPb kiIkHGYhzV9qFMZiKT9g XZPugfImbs5dbbHuTWHb EJTwS4BisrysxWajpmMn ECUunz8nryYgCDU8PMBR OK9RYDFfBUJzs60tGCUv uZiiiN2wqYWbonUfGGKf o1QalD1ywJDOAGAaS2oe UL9gYVees0MdpZPpgQRd hHS4FUQsp7YxYmPyfsNy xTVkcIXdE3IokPfzN1ed NCJmZGPdemXkuYEop4Dm JLUkhJF7cIMbCU5OLtVQ p49yEBMbULJFmmCgEZWc vHpuuWT6zsY3iJ7fOyAX ZiBhcHBsaWNhYmxlLCBj w026jh3otuL5IAAxTPIx egbtj2CxOBXaEEQdzH21 RJPbWHBown1mnyecgRFy maVnS2Gzjip6vE5gOEWo YWluXGYxXGZzMjJcbGFu ZzEwMzNcaGljaFxmMVxk WmSiQOTcSQsgT4pdFdQn ZnMyMlxwYXJ9 [facility] 2022-11-27 23:08:26 Test Item Value Reference Range Interpretation Comments Materials Received (test t5otrJWoLBLkxQJuVfAg code = 9973) CJYqFNCtg8qpAUCkeKIu ZzEwMzNcZnRuYmpcdWMx YLMqEjPfx8lif759rWMh z2dbEZToOwX6aVZmDIFs yAIsM927KKKmKFrur4yi j5JfYPUkvKXyc9A8GLUM zioycEl9aWpvY79ko9G3 AttwN6daHJWfUGDxX4Fa LO1uGNXaDtk6QDO8YXN3 XFRbPIGlF1JdFX1bBKZw oXThJUv8q4bosLtfWEXx PXS5d3nkYAgbnfBiJE9g au5orJt9v4kzihPyYKFs CNLlwTGUDFElZ4WgqMsc Ev8amXv7gNctMinoPZS2 Szr4WQ3vrv73dcf3rLxb RRJwfagsNpO5UMlrYKOz vadoYZb1VSqkFTTcsRcc MFxtYXJncjcyMFxtYXJn pVO4DPIhrFBcX6GzUUCe ILpkHQPvwsg3NrEaNh7e ePHwjPepOMrsx7cri3pv nUVmAyc4NSKcXdPmNxmy PRrgu3Wvc1oyEQMdhw2k CGC4kBJvlQfdf8D2bIWt LQXvrPSmaoDlLBYjuy23 zYPauTGbrWIxmj0iryMf wMDjcEUsDHQ8gULfduTz XASzpKYaLEJyZR5upOOi MIUftC5dhahrQHHoDmEu idllRWVlhHdpieHwBe5x aTwlDKG2UHugF4xcgA4m CsG1YRldK8iimL5rMBk7 QJabgQX0YMSbiQ6mXR4z ayzea5czLhFlOF5qxohs q2thRsSoFJ8gcdl8e1su IQD3ZIujUUWlNrD6swK3 NDBcaGVhZGVyeTcyMFxm r797SQZ6VaDzAEIug2Nh Y9PnnWenY31sxErwM90v OJFkiYqdtZ0veQmtdK8i ZeZiGxJdLLz9wg58PUl6 cylpaRnyPVv4vqKtQFHj WXG0UXIanBEoRUDyV6j8 bwMgZNNwUDY2IWWzzCEd HOUyI0c1fnFcYDZ0GFo4 cnBhZGRmdDNcdHJwYWRk YjBcdHJwYWRkZmIzXHRy xUYjqBVxzXMzaT3onWst SCKpnBOhfP5lNRI0CQIw cmgzMjBcdHJoZHJcbHRy lo30BLCqytLxiFVlzMkn rLTlZRM1IMFjCHOwMQXg KZC8IVNsRoRvskZmBQxa bGJyZHJiXGJyZHJzXGJy SBB4GZKeLhUyttLpRDat bGJyZHJsXGJyZHJzXGJy NYZ1LZCzGkOzlzGiYJny bGJyZHJyXGJyZHJzXGJy BNC1RSTcFqMybwMrCPlk bHBhZHQxMFxjbHBhZGZ0 J8fvlOKwKQBnFZhwwDYq APDfZ1zgvAHzWTfmQIJz cGFkZmwzXGNscGFkYjBc L9raODHeTsWqZ5OviKc8 MDAwXGNsdmVydGFsdFxj iCNdPSE8GJVuPIJdJAMa WDX6FENeBfGyfmNfNPbu bGJyZHJiXGJyZHJzXGJy JIR3WIMcUgNnbpJpNKtr bGJyZHJsXGJyZHJzXGJy KLN3HXOtAuRtknRfCZjb bGJyZHJyXGJyZHJzXGJy NHS2BIZpRpJkfsZvTCav bHBhZHQxMFxjbHBhZGZ0 M2tnoRPhMSQkWCzcmSZy IXOoN6gpuUTnWAssZCJc cGFkZmwzXGNscGFkYjBc I7yhBMSfHwToN0LgaDf2 NjAwXGNsdmVydGFsdFxj hWJmPYW4EFDuHWCgZCFk XPE4OYQqHaOebmLhUIas bGJyZHJiXGJyZHJzXGJy JCK3SZZoAyVxfeYsWTuv bGJyZHJsXGJyZHJzXGJy NZW0OGBjEzOymcLeXEyo bGJyZHJyXGJyZHJzXGJy KXA5TSMuWnZsqiIoUKfb bHBhZHQxMFxjbHBhZGZ0 F9dzaCPhLEIkCNoosOYs LZAaN5sfhNRfGQtyYDVv cGFkZmwzXGNscGFkYjBc E4raXRJtQfKmQ7IqrPi5 LpFoCZOmwcSfbD93Ckdk u0BjVMNhXZF9WKzyXBdz bFxwbGFpblxmMVxmczIw DStisjwuZNGeZMjxZ0sx KcRxWFCwtDytIGjoq6Aj XGYxXGNmMlxmczIwXGIg GCNrWSThxZ1dFssuM3Jb vD6tVNbwWbusS6hyPJUl y4FumT4lRCyhmPYyxhik MVxmczIwXGxhbmcxMDMz PKvqT0mqAcVzMGSkpHjj VDyis2AjXPApUZQzNfnv uwIzGWv9eyQhGRAvgZvo oSLgRDzmcaTjyZwwx5Il reIccFfeOXIzZHt4ugZe chdqvVl9gDEpxYybNQKn aItwzL9vEdZnTtJbOIfm bGFpblxmMVxmczIwXGxh mzstKVZlDIsuV9zfMrTm IAYssQcbABygn5MkZJIn ANGiJpqhoyBxEQDpP93l bGVjdGVkXHBsYWluXGYx XGZzMjBcbGFuZzEwMzNc aGljaFxmMVxkYmNoXGYx VGonO4keZnJuR8KpGXNj XsRihRCwJ5jqT7CsuDwz YXJkXGludGJsXHNzcGFy RFN1wNMfatBmjLUawJTb EZEnYDfiHHY1kJXnnynn bNHqwnzrVViisuL1WXCz YWluXGYxXGZzMjBcbGFu ZzEwMzNcaGljaFxmMVxk DvZzOIZsNBcqF3gfDjDc E7BcQPCvTkEcGjLPFIIt aXZlZFxwbGFpblxmMVxm czIwXGxhbmcxMDMzXGhp X0neOoJzDTQcpDmdJGhn s7LePIVvPRYcDgdwrlCl HTk1psCgADAnuQkouL72 Xiaido28HYAkr9qbROMf P9UilBEzWROeyESfZOdm MDhcdHJwYWRkZmwzXHRy cGFkZHIxMDhcdHJwYWRk ZnIzXHRycGFkZHQwXHRy xSIgTEQ0Y2u0tkHvESTm FIo4uaTlOSAfNtRldSIi LBL5XEz9FvwzsgF4jXJi K1a5DnndkfAkVSbgpFCs gk42OZHrxvLowSEmuXcc fWLoLUR4MNFiHDEhVLLo DCK3NFEpCmYvttEzLKme bGJyZHJiXGJyZHJzXGJy DMG1CAJpKdUucyWmUKsu bGJyZHJsXGJyZHJzXGJy TOM9UEPjLcHldeTyUPbq bGJyZHJyXGJyZHJzXGJy IBX6BMEsUlUmdbPiRFac bHBhZHQxMFxjbHBhZGZ0 W8jaqMLiGPTbOMeolPQn VAErA2rnzGSnODmqWAIx cGFkZmwzXGNscGFkYjBc P0rvRBRzLaDnP8NdmMl9 MDAwXGNsdmVydGFsdFxj rXWpAVH2TNCmIWCvUJIp RJJ1BZYfGtTxqhDmAUaq bGJyZHJiXGJyZHJzXGJy ZYK4HZLuGxTwniTnXUmb bGJyZHJsXGJyZHJzXGJy QIZ2KFOiUsYqvdEuRCgj bGJyZHJyXGJyZHJzXGJy UDV2VFVcApZwndSuIGpn bHBhZHQxMFxjbHBhZGZ0 J5vlnIBdKTDiMMwahAWm DKTpM4vlwTEaPVddVZXe cGFkZmwzXGNscGFkYjBc G7ccLXGcJgKmB1EyjSe8 NjAwXGNsdmVydGFsdFxj cAClBEX6UGAcXQUnWYGq WKM7SSIrHoXlyhNnXCcg bGJyZHJiXGJyZHJzXGJy RCR2RJQuCuTjkrYlEDkh bGJyZHJsXGJyZHJzXGJy AKI7HUJjCbNaofSjPCts bGJyZHJyXGJyZHJzXGJy CLU6DCPpYiZjkpJrDLvi bHBhZHQxMFxjbHBhZGZ0 N7fkvMSfPCClZDhfpSGj ECInB4bnaPElORpqNZKk cGFkZmwzXGNscGFkYjBc T7xyGYXkElBtU8CyjAu5 TtEwAFAgimRqnB74Dzqg q1OmOUQbOMP7VCrmUWcw bFxwbGFpblxmMFxmczI0 XHBsYWluXGYxXGZzMjBc bGFuZzEwMzNcaGljaFxm RGykPsShQAIySXhqM8nl HqBvB1AtJXTtKlEgHT3k JlO0PRLtVTqmSNM8SUQE SECeGHIGK2NALwfvNNFI T9DotDahzA9jLmEsLqCr APbwLM3lNYOtX2nkiVEl IIDxBJNzH7zkFtRnqJ7l aFxmMVxjZjJcZnMyMFxs dHJjaFxjZWxsXHBhcmRc xK64Kdjjr2VjLGIhJID2 MFxzMFxxbFxwbGFpblxm BUrudqS4DFHlTQpoQORr XGZzMjBcbGFuZzEwMzNc aGljaFxmMVxkYmNoXGYx GZwiY9phDgFjC1VwESEb MjAgMTIvMTYvMjAyMlxw bGFpblxmMVxmczIwXGxh rjtmZKRbSSudE2akLwCb LPOizZxkOMtjo9SsOTIe NWGfDpfnjxDyAVg9ryIm XGNlbGxccGFyZFxpbnRi dJvsi9BtiqYqiDzoSMTt XHFsXHBsYWluXGYwXGZz VnNsnDsvyX8tKhWnJqYo NFhmJG0zKPGmR2nbgULv XADoCCWeI5fuKjOdkH7u aFxmMVxjZjJcZnMyMCAx AaY5BvUtWdOdjDdbuV0m UePzSzTgBOutZA3uDLRr V1kylYRfUJQrZQLwH9ob UjEqrG1pgBygZDzfAvVm ZnMyMFxsdHJjaFxjZWxs ABbsnKTmSHAhc8rsNHTr LFUqpDLuGWL1rFLfqxWq zAwnzSjehF2yJbFbKiBy NFxwbGFpblxmMVxmczIw TUknvrcnFDOjLDwhG7bc XmZqAWJvjXwzWUutb6Pz XGYxXGZzMjBccGFyfQ== Addendum 1 (test code = s7xlyUOaLQWxhVCdRJPa 37) LtxqkiTmEWBjjMNoF8Cm jnmpFBdpPR0hXN0eyBxf gXDbwHKbJJMrVbJxd4qm o551jGPqw7mqCYDIIZad JVZLPHd6p5gfVBJYkyby tUp6rKfxQ83my8J5Twzz D97vlFHoLFO7COVgCKXr sBTgPMXnGHV8ONUsxCVe V4brGSPmTZ8abwgmJSoo MPpmYLZvwKB8FFAfeXCn H1EqCZXaOCjpRUVwbhp4 PoZdOv3jtOMqaHusYXtl YXJkXHBsYWluXGYxXGZz MjAgQXQgdGhlIHJlcXVl p5Qck5KscEjgLEUyLYU7 kA6fQMRszDFtF0jmvaM9 wUQkZt8nbZ17uA3cLHZ1 vNXsSEQsl2DvBSLsISIv l9UoVSSsJX4yLYbuuCFt jRHrdZPcGPY7OK8BLWCn STNje64gIdCltODfCYBa mlTslYApHRDiQOW9tR2y ciBjZWxscyBhcmUgbmVn ASKnkiLgWx3vHDcoskTv KKPcTOMmsYRepG81ew3t kYG7d3MwZD7jV2JoXCVz YIf3k4lcTlQwqPXgLXGh jwBmiJDeMAYuLZP2sZ2m lvYjECrcukSfbmFadD0u aXRpdmUgIGZvciBjbGVh omEcEY7UMANHYLDqXJQ5 NBVoTCMlzKDfgZ10ym3z mHS7x8IeWX1yX4AhZTCy IWz3e6jkXbCanHAvWWXb eiYBDH8OCAZtR4xqqpIe MjJDMywgRGFrbyBQaGFy bRU9RGZJa15vhD9qQJTX x6BgjAz9TCLNZ97pZFRp S0SEGQbhbAGmuPLcwnA5 aGFuIDFccGFyXHBhclxp HWNtLJUac6S2PWazIr3q zNM2kN6qOULrBBM3XAXr aXMgYXNzYXkgaXMgbWFu vHEaJ3G1mdKcCQI0ABYh aWxlbnQgRGFrbyBhbmQg lRQtgvVpQG1nii3ttZ4a JBctHJ93lT4NRC3UXZes M6szboPrWkUNNo4yNSSf cTRcrYBiOs6whUXnPH1n BKQzjs8jhVwoTIOjoQUq IHBhcmFmZmluLWVtYmVk RCMbBSCwq2F7ARY4b9hu OuQaelYLA2mrMB07EIVo n10sNKO9m0F7VIoeVTGz DK6yFQAswDdqJTQgYvDx HIIoTPV2IBN3xJ5aADsc bFwmASFle7HqA2xrpSBk XIE1QXAnNOOoYC90TgEs kVHdXJErHVl0DThcCKCi wECwqwCuKUAjilI1l5Mq XMYfXZFik69qGA8te24c CSgyO28cd1ErYpDcm9Ql t8CvS7awbRXuyQvwlvFw bXSeQK4dAMZmywMhtE7x xZCmk9UpgEdgYPYsB14r StlyYISmrE0jtFHxwpHb q5HbtfKhUBMOGkdloOFf Y1UjT8ZdAWYgYEAzsnQ7 fPPhdpAcWgCuDT8uFCGA EDlkNTR0PFswfO0sARKo bGjfMLh2vJOlgFUjhJ92 CZDkdvTrzVOpx8BgN6Mt zFClr2etz2bvHjLcRY1x rbUmy4YfQXT9XZjuoW0v RZ4hCWOyxRGapqBxunYa qDn6MVg2aKRgu7N9xWGg ZYJnWPDdTCUms6MuVQwc vxXtzsJ6gGFleAXfh6Ty OBPhNFNbcO89nX1eWE7i aJPdCT1lqWAdw0BdH4j7 p0EnYAFziMCxi8OicI6m ihxcw5YxDN06JCpuxTHc d5k5tFyqDTy7aFWmQWAx pYI8pRYjsI91STgnyrLk ZjVxEU6fRDGfWUWmNEDv nkAyj7i7HSY0iN1vhqCv ZWxscywgbXVsdGlwbGll ZCBieSAxMDAuIFRoZSBt MBfhbKErFMVay9CeIKrx BWGmIpmeDRDoUELsL8GK YGTdPS2lmIIcDSgmXBUa clxwYXJkXHBhcn0= Diagnosis (test code = v8kfiPUlPHVtlNQtSBTv 34) PnumfvDuNMSfaBQsI0Cm gtfkBBjpHV9qJG3hsDfg sCMixUOkUCPcYbVwy4la y331dALro8olRSIMjmir oTh9pPnrF03ge9W1Fkti V0wpBBKpODvdXGUrDYyf lMFvKLa5NUHjdUWghpBh PaFtLWAfjCOtdTR4NNDp CC8stdrjEPalMLeySRXb frB8HVXzqOBdR1XqQJLg VW5fovqcASI4BMfrAVNu RGP0XmQzWKKwa6Nvhcs1 MjBccGFyZFxwbGFpblxm czIwXGNmMSBPdXRzaWRl ONubIftGDjV3ZrMzKPqj Q4KhLSVhEouWY7aCOXOi OZRRKnruK46biKGbzGOk JE5dWANjWnI3DcZwJvXy HoovZLArX3BoLIWhlegh oXcmCWmofP20LpFzAxDf r7MpFRQ5mlsiCCLwy7Vm gJhtjDChLSqtKfL4HTwg jS42IuFtkTvcYjF1GIMA BUODH4sHUPBBE7BDIvZG DLPVMK2YLYKnEPLKKHSG QXMCNs7uUToOHNRsMYNo M93xmIUjmThkYCCwvEZl XGxpMFxmaTBcbGluMCBN RFcvRkxaIFxwYXJ9 Comment (test code = i9ndvFEzGVUonZLfQATj 9865) FikbrrPfIFVdkUYcV2Hz fkwjXTdoXY8aAE0auKjp nORdtAUeXBSgOrBvq7yu g203bNUds5uhKVYQjhwb jCc1lNkuS94vi7M5Igci F35nvPYbXPE6VAIeZJFu nDShELTsFPM5SSNptDEq L5imXQYyRS0asfwqZPya AYyhAEOqtAP9XWCjkFEz D7UeKYMuTYzoYSJjtjl1 GhRuLz2qvYAjvIlaLKou YXJkXHBsYWluXGZzMjAg U4GprAq9uUTmMSuekAVg k1yno0LyX1otdOuiYImu f8SrzM4yHZBgkoRzix4w ZCBieSByZWZlcnJpbmcg mX5wmYg7uQAiy17qg4ul poB8sSF9KDREHlTqfUqv bGlnaHRzIHRoZSBlcGl0 aGVsaWFsIGNlbGxzLCBh bmQgcDYzIGFuZCBwNDAg jRxciJowN1x9fjB7aZIq bXlvZXBpdGhlbGlhbCBj XErpfi7iFOKgDNCdr3Jt iC4vt1f2VDGsSUJheG34 px9fbLRbh6H9sVGhsQVm d3WgyS8omLb7UMXiZnB1 hAzdEATlMNHphRLsV3A9 tV2tRvXbaVUshW== Biomarker Block(s) (test x1smcUKpPKApbVEjWFJr code = 9841) HzuoojVtWUTwaDRsR7Ci lysuPYxkGB9oGH1gaQdz vRAjoAMxAAIoNiQgn5fu b146sNWgn5toIPXXdcso pJs5dBnyL59fs8R5Eryx V1goFDYfQEluHMHlPZlf yGAzABp6UNDhcBXrknFc DeVpEUJujRVmpVS6NNYe HI2ppeitXJzeCRwlOZMj utR5EQIwnXJxV7QcJYYj DT7iorajRMC9ZOzpMPWm DCC1TkDaTBErx0Tssga7 MjBccGFyZFxwbGFpblxm ziNmGBT8kO1iUPWst8Lh OiAgXGNmMSAyMjpJUzE4 NzBccGFyfQ== Disclaimer (test code = p7sseIIaSXMyoTBfWyCk 9844) EUVsPZFpj3siTPTyyAUl ZzEwMzNcZnRuYmpcdWMx WYYqBdVhd4atb658hEHy d1wcZUQtUzC4vZItUZPb fMKoO733ODDdZAtah3nv e8UnGUFcjVVbb5T1WQSZ gpryvGk0rTobS82pp6X4 MhopP4ofWKQjPLFpB8Sm HW0uSWIyFkh0BJN8BTU0 BULyTDPvL6QqKV5aQZVp kHQgRZm4o3txrPvuRLCi BWB8c4pdIXqfwgJuGI6g fq2paMa9a2dxgsPlPQBa IYVsiNXMBTCkH9OqvOec Ky8neLd7kFoxEtxkSSH8 Znx7YW1uzc46qlo9jSah IQTpjzjvRiC6ZDjfIULl didcYJx8MWdpFAGzoFC8 WANmuLSmP0EcANTgYS1z ebz7GWK7NZsfLTSuGvZ9 NDBcaGVhZGVyeTcyMFxm l774MYT2KdSzHR7cE7Ac a2T6vB6ciMOyJYXidNDu ZfTcVYYkhe9qjUKeHWkt j1BgIJW0xwW4vUGpdCFk GSShUP44Jobny4AjQsuc WZP5FKUdylLxb6Jpo5ir GfYqpjWqB8tqI8XzJPZm VSKcMQIhOnBcbyKlt2Ad f0SffUXphVv1b9ddOTTc SOVfjPjet2rqBOC9ZOJg G1W5bYCwc6orMHhhOWGb qVX3voY9YKDpuIFoH2Ba eW9gQTTkMR7erwp8h3lk THE5BBmmUIJvVwY6rwT3 NDBcaGVhZGVyeTcyMFxm o076ZVJ0WnQsZIXei7Tv Z6RmpIiwF46tlQxjF98o YUVfiMlspA6rnBmwiM9w ZjBcZnMyNFxxbFxwbGFp orefPQlgnyQ5TAkxozqp WHTaOJeaZ3wjNwUvLQEx wGosJJwuy1RpZRHyMMCu BgumnhK1KPQVh88sPWKs s6JmLPWqlE8buSOyBVjn owBthYA5XLtttePhVqBp opQpQYNtxZ4lOXOpAE6s COVlbuNwge9rahYeBTSb ZPGhV9ZpgjqkmJvissJg ITKocu2nliMjTZJ7VRQC JL3YKWMyIJDsx22gZAJa qIlkjO0lsRLqjsVlINBm n2DpdO8deTOKJTBjD9wy SX2sPKauo7KxzIWbjIJs oAK0ZKGqi0MxLdLiovIu wEGbvPFqY2DlnUxxO4ll PFObMWTvtzWfuMNwu7Nm VGIoyVS9nOYrFV5YLhGY s58fYNVlJSZIcdFzJWKo mSeiwLL3ygB2hR3eNdMG ZiBhcHBsaWNhYmxlLCBj v862fe4jkkB8LXVgXWBt ouuix1WuSWJiQGBchP45 DJRfPRVnip0ngnaejSMt lzEjM6Aarjh6yX4iXOXy YWluXGYxXGZzMjJcbGFu ZzEwMzNcaGljaFxmMVxk WwNjFJNnPGckB3miQrBt ZnMyMlxwYXJ9 [facility] Outside Interpretation 2022-11-27 23:08:26 Test Item Value Reference Range Interpretation Comments Materials Received (test q6dhmWLpVLVurLRpOhSc code = 9973) UNBxXOHkq0vkNDWukQFl ZzEwMzNcZnRuYmpcdWMx PKEsAtRgt0mis120bMYs y7heEKCnBkG3fDKaTTBu nUMxB760QDUxQTtxv4gi a9RmPCAxaMKah1T5MDDL lhslsQi7rAodP70ni3G6 FzjwY6ynERNgGWQvS1Kw JA3pLHKvQgy7MKL0UUI5 ZZImEPQkV8SyTM3sUSTw hBZxDLp9n5vgnUhwPFXb EYG3g3oxKOxvuwZeNF4t qr7zeCu0p9wkfsUnALOd CLXszZBUGRPhP8AtjFxx Xs4hwJz5jNerZvarPJN0 Xhk7MF4uur89omx6oOlo YFMauigsWhF1UUlvDTHw wbjuIDn0BOnzSTTfaJvr MFxtYXJncjcyMFxtYXJn fMU8WBGaxTRyO5CfADXz IYqeZZIhilo9TnGcQm8c cIOmsZgdHCnyz7qym5af qCKzWuz7GHHqXvNhZcuj DMfju7Qky8kiWEKqop6o JIX5cVGruMhzy6R8oZFe BCEdmWWafzDaCVWdbc02 gOBxvJPkjUOfhg8brcCu dLRwkAAcPXS2iKTogiVn EFNvyPLhFDKsBY4moBHm PCQtpQ2vmmzzZUCpYaIu izowZUVtdLwynzIrZi6r qKjeYHU9SCkiD1xxzF3h NbY6ZHjpO0wccQ5rVVl3 UYqklPX8OHEhvV9uDK7v cdnmt2pxIeSzXE6hlvxz e6kpWvKdJH3vksa0q6dw CZK7KRbwKMGzGeS4hgV7 NDBcaGVhZGVyeTcyMFxm j437MDB0WmBwTGUun8Nk J5WkoLgpX93cuHsuL02e JZLtpCfqrQ5gvBkvtW2c RoErFtMdOYp0yy71NBa0 hmyveLopLMx4zyFoULGl INA7RVQjvGNiUENjH3l4 atMmLAJfNLL1PGKhjRAh PHSfW7m1czMsZEF7TYu6 cnBhZGRmdDNcdHJwYWRk YjBcdHJwYWRkZmIzXHRy rUHdxQLvvTUzaY7uyMcy THLboGPvtA2jRWX0ZNAk cmgzMjBcdHJoZHJcbHRy pu89RSQacmNwdNXtcKtg rBAbJGR1AXPwQQZsKGGj XRN7FTZjSfPjzxSgFNfr bGJyZHJiXGJyZHJzXGJy BXN4UOEyDfZmzgJeRXdo bGJyZHJsXGJyZHJzXGJy ZOH4KOJcTrNrmaZmOQga bGJyZHJyXGJyZHJzXGJy AGD9MQUxPyLuybMxPPlo bHBhZHQxMFxjbHBhZGZ0 C2lkrIIwGMQbCTlmpLYh PCSqD5afpRHeFAbcKJJt cGFkZmwzXGNscGFkYjBc C8hoREGnSwNrP3LxgHu2 MDAwXGNsdmVydGFsdFxj tLXnSBL6CTZaOJTkUWSk NCZ9RSBhLjKtujIwJDik bGJyZHJiXGJyZHJzXGJy UKC5WAZpCeBiegMkBIyx bGJyZHJsXGJyZHJzXGJy YNB8NGLgGiQspuVvFHqe bGJyZHJyXGJyZHJzXGJy GRU1HTKhExFisxAnEMni bHBhZHQxMFxjbHBhZGZ0 L3ceyWIsBERwCUcnlDDj UVXjV0jweVMkSSrgMAGd cGFkZmwzXGNscGFkYjBc L3mdSGRgUvYwY3VcvVt2 NjAwXGNsdmVydGFsdFxj tXXcFKQ4GEJsCJGtDEWn IDQ2ZJRfRiUoaoKpPGoz bGJyZHJiXGJyZHJzXGJy CKF2IRVjUbGgnoDuDZfd bGJyZHJsXGJyZHJzXGJy LNB7NGZkZePzpgYpIRgi bGJyZHJyXGJyZHJzXGJy CEJ1FIHrXnNzydAtVJtt bHBhZHQxMFxjbHBhZGZ0 G4dxlTNeKRIcWHcueRVk ULHiY3iuzTNnLSztCOFw cGFkZmwzXGNscGFkYjBc P5zoFEVvVdWkF4DksUj4 UnRhJQSohxSqrZ69Tgxh b7XmEKKtXXT5WAdrZBck bFxwbGFpblxmMVxmczIw KGhzgicvCJCsTLjlH2nf KeGwQRMraLxpHNpkd6Rj XGYxXGNmMlxmczIwXGIg TWIeRFDcsK5tGujdR4Cj mS7bHQvzMejwT1jwGQIy v0EipM9eOGlsoVWfjntr MVxmczIwXGxhbmcxMDMz DAtiJ9hiHmSjUEKtzNqp QNegd9NwGIRuFAJoLogc deYkZBu8niGhNKIaoPlb lIOaGYdyyeJmcFaow7Ty apJbiTcqWFRdKZf5gxNp tsnyjUv7vKRfzBrtHUOw fPleaY6mUuTnUcObDDls bGFpblxmMVxmczIwXGxh onygYDMgBUdgN2glVtJc ACZewYjwLGcft8DvDMHf AUAyAyxefmGiTCKyI61l bGVjdGVkXHBsYWluXGYx XGZzMjBcbGFuZzEwMzNc aGljaFxmMVxkYmNoXGYx VIdoF6hpTfKwA5EnUPWq YpIeySJkY9eqB9HfzQob YXJkXGludGJsXHNzcGFy XDK4cPYzseVxzPHfsPIa CHMyYFefHGW6kVKwlaeg xOHhfdyqEJrhlrK3KTLh YWluXGYxXGZzMjBcbGFu ZzEwMzNcaGljaFxmMVxk JoVxGLTrHOuaP3stUjOx N6VuWBXkBzUyEeUIZHZd aXZlZFxwbGFpblxmMVxm czIwXGxhbmcxMDMzXGhp K5cdPyKiINKamLppCGgd h5QsCTGvVVWtKtosciLt EMo2igBoXURfiOuueQ33 Itefyy29PUUkd1xwBNMb G8JjpNXpRBPavQLmCJnh MDhcdHJwYWRkZmwzXHRy cGFkZHIxMDhcdHJwYWRk ZnIzXHRycGFkZHQwXHRy kOJzCFF5K3v8kjQkBIAz WQv7otYoOWSnAhRksLGv IBJ5LOx2ZjaiidB8lHNl D8t1NmkpwvEuKGuazIMi pa18RITufxNfiXVtyBlz oVUqLJD0RWNqUMIgSMCe QJJ8ZWLdAeSypcVnJRgt bGJyZHJiXGJyZHJzXGJy HEI3LSEyNlUncaZbUDcx bGJyZHJsXGJyZHJzXGJy LQP4LNFyNuYpflYpZIbw bGJyZHJyXGJyZHJzXGJy KMO4PLCkSiAjczUpGPcf bHBhZHQxMFxjbHBhZGZ0 O0lgmWVuELPfSDsluPSe CAXtV4fthUXzRQjkWNOz cGFkZmwzXGNscGFkYjBc W9cyZXMdAnDbV9TzeDx6 MDAwXGNsdmVydGFsdFxj cYUxJKA1LSQuYKEnABFo ODP8PWYiEuHnibQbXXrf bGJyZHJiXGJyZHJzXGJy CCM9ATEeXhVctnJoKMhh bGJyZHJsXGJyZHJzXGJy NBY7JMOpWnItgwSbPDjv bGJyZHJyXGJyZHJzXGJy SAL3HWPgOmSrkeOeFYhc bHBhZHQxMFxjbHBhZGZ0 Z9bfbUSgCBOvKNdjbGHd UCSxV8loiLYlSKhxYTYo cGFkZmwzXGNscGFkYjBc E7jgTJAzKvYsU2VlzWh9 NjAwXGNsdmVydGFsdFxj dRVjMHJ5GHKpPAEoFVUm LVB5CAYcNcWfubCbAZrq bGJyZHJiXGJyZHJzXGJy JDT4IWViPjVgrlGhGWkq bGJyZHJsXGJyZHJzXGJy WWB6UITaIhSvbjFaKZzd bGJyZHJyXGJyZHJzXGJy QSQ6XKAxMcJizhXnFHjy bHBhZHQxMFxjbHBhZGZ0 J5bopQIvQBMpICsykYSc DXAqM0deeLByTYhdMUVo cGFkZmwzXGNscGFkYjBc A2ezLURuNfAoR1DtaWk7 DjAmKGUvvzPhvP89Hdks b1TvEDDnTMN3NAbgQTft bFxwbGFpblxmMFxmczI0 XHBsYWluXGYxXGZzMjBc bGFuZzEwMzNcaGljaFxm QNsvSwUzNYZcXXroW7ae EsQwC7ZvBJMsBiGdZV4c OyE9MCWfILwsEXR4LPNV SQGiLMNUN7FODzcfEVKW G6IdqNortV9gGgKfIyYh DKuhPJ1iQVNpT5drcVJr WXUpBDBdW5baDbOqqD9i aFxmMVxjZjJcZnMyMFxs dHJjaFxjZWxsXHBhcmRc hR01Nvrjd5IsPMBqYQH8 MFxzMFxxbFxwbGFpblxm HAbnclV9NAUnSZhwPJKn XGZzMjBcbGFuZzEwMzNc aGljaFxmMVxkYmNoXGYx ECulS5vmFvXaC0OcUDYx MjAgMTIvMTYvMjAyMlxw bGFpblxmMVxmczIwXGxh czypJJEkBWjcB5kvEnLc ZALbvSvqYXnxc2AlAFSq WYVvLddjgiObRXe4cgBf XGNlbGxccGFyZFxpbnRi qYiah4GeuaOunRfeCTHw XHFsXHBsYWluXGYwXGZz RuGinKmndM2mDdZiNdIz STrqPC4qSZLtM9wknRUn YAUwDOFtO2huDxWdzR9x aFxmMVxjZjJcZnMyMCAx OoV8WfIsFcBziAyubP8k RhWhVzNkWYuwNJ7vJMZr D6esxKLxORFsAWGdF3ha NpLekN9mrOsdJDpkJzOj ZnMyMFxsdHJjaFxjZWxs STqjmAKjNMJsb8vlDBVp QKJhpASpBSA0cRYhzeGo vYzhtUghbT5eCxPmJnOa NFxwbGFpblxmMVxmczIw TXzuqyaqDNFmVZvcU1gc RiWxPIHtjIerLSusg7Vk XGYxXGZzMjBccGFyfQ== Addendum 1 (test code = d8utwFLhHWKvyGCxHWPq 37) WksyfyScXIDrlALhO8Of qkhtBHxjNF8iEE5xqXlh iUYytHJhQNMcDfSjy8ky a902bJOfe6fgDENVUKrp ARHPUZc9y0bbMDPSyzvs hRa9bOvdY13fq9P8Folo E64oeLHfDEK2QUNxXJXq uLAfBGDeLLG8GTZmvHQy T8jpAZOlRU7xcmknPVgs WNpmRIGdfBY3JPDnnCOw D9UtACXbQRucRHXhcln7 PtZlFh4hlKKzvVtsSVnd YXJkXHBsYWluXGYxXGZz MjAgQXQgdGhlIHJlcXVl x7Nex3ZniQfpTUJsXHV3 dQ0vPOAakDSfB7iptbJ2 lRRuVz1usM91eM8wXAI9 pIXnUBPyo0TnSWWoTVCg q7SoWSGiEQ5mAOqqfMYe vYJvgPMeTHF8OX4NOZMn HCMnv80tGpYetZRcCLQp pnLxvMXgQAQwTFI9qD2f ciBjZWxscyBhcmUgbmVn SVXenrZwYn1sIRhjjuBd UGDxTVIixQMmjW87md2v fYH3a8JkHY0xD1JdVBDj JEf0e4wrDdOpsTWpFNBy elDwkVCsDPIdLCX7uA9n xaWiKOlfyaVksqXaqH6n aXRpdmUgIGZvciBjbGVh gsRzMJ3WUTBWZWVeVDW9 FDOsCFYirCKtcI36hh4i aZC8z3AdXE0rR0VmWHOl BNv5c9rzGhAjrOPlJFOk eaWEIW6QAVOiL2mufhHf MjJDMywgRGFrbyBQaGFy nFO4RXXDn84zpG2jZTGL u5HafWt0IKYAG13yKBHs S7YWNZbnkMUcfFReeoT4 aGFuIDFccGFyXHBhclxp BSNvXVMpt7W8PByfBc0i aBW2qO5gXBKwDJU4RWZa aXMgYXNzYXkgaXMgbWFu eLFiO1I3jwFhFDT7WNSr aWxlbnQgRGFrbyBhbmQg gNRzvgIgAD2nbt3wwV6s DWmbRK35xX8QDD1BDIbl F5qjsuPnRdHXMo4wLPDw wXSzdXAnMl7zdZPsYS4b PZMsoo8iiSjeZBLksTLl IHBhcmFmZmluLWVtYmVk BEYsUFMvf8M9TWE3d6xg AaPwwxUDP1ahUC88UBUx h86rSXH5g6G1ZEufXFTj QF9hGAQstEhvAWUpDtSn MVJlQYT6SRI6xG1pTMbd vGebKKGwz0XuY9unkNAs SOF5KNMfMPWbRJ35BxJi sQRyMZBnVGv0OVscUINu oRByxzYrFKQcmcY7u3As WQBoTOLug51yMZ1dl34w PWyeV32dc8UcXvQsc6Fy d7ZpN1kqyBQnfEgqftRs hWZkAN2oBFHqqbWbiT7f iWLrl8SjmKnuPWTlA96s FqjrNEKvtF5kiXQadwOw f0LzqvNtIKULXwhcwLIx E1ApW2PoJSFeQQTngjS6 qTDkgaIbNoFvZJ9qPMTZ CFogDFJ3IMkfmK7zTBEx uIskRHy5wBAxnHGoyE68 ISEqcwVrxCDhv1KhP1Al rRZwp7syx2taYoOeHW3d ozPth7TbVJO1BQfvjE0d CC1wLOOohEEjfzCywaZw hOt6WPs0pEPqb8J3hRVj ZFHpBKUkHUBvr4FoCEex lnMxqbJ0iZJkeZLez4Bk MMQpLGRxvV10lM6kWM7m zILuBR9heJBbv6VnT4p8 n4CcBCBhzPRca7CudQ2b esajf3OdDV91PIxbgZEu y7r3bIujKXm8mQPlTYYk jSL2wVLyfT64SEsrouTw AmMySL7mXDApRUCcJQUi udLhw7o7GHC9eF3jyrLg ZWxscywgbXVsdGlwbGll ZCBieSAxMDAuIFRoZSBt WFmigVMyCXCza8UeOLss IEDrTkvxWLZmROWiO2WV LYNrSK5tmFLfHJhnNTIo clxwYXJkXHBhcn0= Diagnosis (test code = l1qohOGqFXTtrXGaAHVr 34) MkcwdrTaDTExoPBrZ5Gp guqmKNlbOQ1cGY7aaSla fSKndIUjLCKyEfZwn3pu o666gZAac1qmTXGMaerq zEz2sVcvP64li1V4Xmvl O9doJKRqYTddBLBfOLtm qITyMFa6EXTewMPhjlMo PpQdEVIuwJZupMU9FOPz ZD4mttghBHzsWVfoBCYj ubT7BADwuNBtW6CkYGQo EU4macfkSVJ5TTaxAIRq YAS5QuPmLELbx9Expxi0 MjBccGFyZFxwbGFpblxm czIwXGNmMSBPdXRzaWRl EViwObuHTfH8QhQyUCnr E1HwKYTbVaqBV1uHRKTz SWSJGsptK07taGPcaQQx AE6rZQBbTaS3EaEgWaDv EfriYTMiY7ZjDSIgesfb qRhzNNxnuV91IzBiZxEc h1UyXXM4uqsmQLMyv7So gHtjaRVjUGorBtW9REkr oK35YdJyqLcqPsY3PJQO DUIMF2sTNERPO4MOPrLO IXVUYI4OXPJpSDDIRNIU VAUWBa3oCPcXCLTwHTOn A63gtYXpoXexBMGcaHQz XGxpMFxmaTBcbGluMCBN RFcvRkxaIFxwYXJ9 Comment (test code = q1dleHVfHSLmnXZeIZMz 9835) RqgaccXmOXJteFQnB1Ve azllVXhnAI1qPW5xcQtj uKIonGSqPODpRjAka1ny r098zGCmt5ebNBOIxehc pHn4fPchY38gs9K0Kzji N47fmXAdIRZ4KZQiGGIj eCQhDPWzLLR2QBZdbSHe A2hzWILoAS0xpjfiQUzc QRecRTEggAG5IMBasUNf R0AwQTCuIJfkSCQdzpw7 QaAyAg4jhKIlxRuqPPun YXJkXHBsYWluXGZzMjAg V0JehTb8zBNpZVvtoIOh x5mls3AhP8fbjRrcKQke y4DtkB7kSCHmplCkgl6r ZCBieSByZWZlcnJpbmcg hB2suQw6vASvz79fo2mx kzP6tJP8DDPRWnMgfHbv bGlnaHRzIHRoZSBlcGl0 aGVsaWFsIGNlbGxzLCBh bmQgcDYzIGFuZCBwNDAg cNytdOdgD9g5wgR7bRBc bXlvZXBpdGhlbGlhbCBj XEiuqp1tSIRhLHKvt5Ql yI2zi0c0VCXjFETjhR11 ga5plUKqv4M3cUTbkWJi o2PfpF7ivSa7CZVrIpJ9 lTdhPPJbDPIajNUyW4E7 dQ2gZbQsmFYjhB== Biomarker Block(s) (test q0rvyTVjUZPysDYaEPPi code = 9841) GylqaxYlJXSviKZvY3Qq jlfoJNqjJY5hOW2tgJyg uMHgeSVpEASeHsXfz7xc p186yXZdq7bnEWCCjjxm pMv6tEfoA66mt9Z4Mgde J4ftWJUxJUoaXGQqHTlk bYXvRKb6KYMaaJDkojIt HhXwHTExnQTrpIQ7WYHn ZF0hoyvzKUvuJDrpJXXn biN8BGPjhOZaV2LmUUCe NI8juyyaPWD3NRwoHJGu UKI1MrVjURFqv3Gzmgn9 MjBccGFyZFxwbGFpblxm stVxGOH0xK6rJOKcd0Iz OiAgXGNmMSAyMjpJUzE4 NzBccGFyfQ== Disclaimer (test code = a0fkiMRvAUNgvZBwRuRz 9846) RBQoMOGak9ocNQChkJZt ZzEwMzNcZnRuYmpcdWMx LHGtSpUmw5lft793zCXb s2qaXOTxYtG2vLQnUSQm jWSlI844GWOpNXnly4ua q8KcNABlzWAqa9B0UPWV hprllCj6iDmoV48qs6V2 AezhR1ffVWFeMTGsD0Jy ND2tKMRfSic1WAF3KXV2 OVTsOZPvX3ObAG7aBJTs oZUlEPt2m0lhvFkzXLXa ZJB0z0usTIehflWmQZ0x ry8kyNi6x7cxzsVsFGIz MAJhdCFLHXTjI7FflJwt Gf8ctZu5hTwbLmroPLE9 Mwv1OR0udk20aza7tZcc SJXmxoivTyX5NQsgTGVa qgnoQJl0HJcnJRUxjVQ0 ADXnsDOiK6HzJVBkJN5s awg2IUY6FFapYWXeBnC6 NDBcaGVhZGVyeTcyMFxm w252FFJ4PnCfQC5sR5Rc g7Q0zN8biYYfQZFztDBy HgJhCYFxld6wrSLsZLyx r4SbOTS8eqF4rGZjdYUq FWRwHD52Allaa4YuVnbd RDC0DCPuldQly1Eod7wu EoHjtaDdB2fiV4VtPGLq PWGnJEQqYgJkrbYvj0Gz v1JadCYsyFt8p7aaEOGd QTQksQbvi8vwKDR8BYTw J3F8qLSco1rlZSynPDMd jQR8qtL3XVGkzCBvP7Cv cI0uNDEqYS8dcog9y3il LIL1YTyvEGLlRvJ8ymP3 NDBcaGVhZGVyeTcyMFxm a167EMG9QxGoRNTfr4Tf C4SfdJtkM66ayMiwJ35k NYKycNbccK1wkJmtfT4e ZjBcZnMyNFxxbFxwbGFp dkjbORnmqzL0JJymnxut NCFiJPfzN3hzSjIwEFXj wUuaCVwix9CeJIGyHZOt InptekD7HTLFj52fPQBv p6GpKLZhqI6whRZcKAoq skDtrZH5YHxmubHmCxEf arHyMCCgbN6oUIEpCE3a TJSovbCsex3dgrIlCNFo TRJjA2DkxwnmaIndlbKt QGIhjd8sysOaAGA0NXYA PT7KLSRdGBKhd13aRDHk jHnrcF0wbMZxmsHcMGJl g1AaqS3kdZZMIDVkV2pj HJ7gXHdvr7UffBKagWJy zAW8WYVpv7LsAsInoqEx nDXehDKyF1HtkTslK0mq EERiMPYsdpLmrSAzr3Ph VTJlkHN0bKLoBS0AOuVU y58rVCCdRPVQllKjQGNn zKtdhPJ4zlZ2qR0hQjGS ZiBhcHBsaWNhYmxlLCBj t360ab8lxuF5FEUqISZd dftuu7HgOKDbCPTfeS30 DIYkVXFdar1hrkkweTYm jlReF9Aklhh0gP8tLANk YWluXGYxXGZzMjJcbGFu ZzEwMzNcaGljaFxmMVxk CyWvGPHsNSknI4ibXwZf ZnMyMlxwYXJ9 [facility] Outside Interpretation 2022-11-27 23:08:26 Test Item Value Reference Range Interpretation Comments Materials Received (test r3jdyYRzYANzqMThPdYa code = 9973) JPOtBXOcm2gwYMDurBHy ZzEwMzNcZnRuYmpcdWMx WFQbUtNey8sno119wXUe j5acNLXzIwA1zGEjVDSw xRVzX149JUOyYQhje9ye a0XuSQHsvHTir7M3IGEP eujgqKl8vRuhR13hs1W4 OeeyN4jyIYCrYHRgJ1Yn FS5kXEGmAqj3DJP8EAL7 NMPaAQRmM9VrYE8uHTPu lLVbDTs8g7iqkWskYVOr ARF7p8xrCUlqgnKgQD6w kx8ajUx5g0csrsHdLTBx OOCofKBRUHFvE2DszChk Ae2nyBs5pKcxSbzjHBM7 Yfm8DQ9bkm50kuk9sXfr JTMqgeolAiF4QEkyABFb bxlbLJk2UNzsUMPdeFfy MFxtYXJncjcyMFxtYXJn qXC9DKRofYDaT3DkFGEt BBtzGRVnatn2EuCsVm7m gOJmxQuuMVubu9bjh9qr cMReNpn6NUCcZjZqCdrk DHtwk4Cms5jePTHfwg9s IHE0yKNrcUygx0L7rCAb CSMxvFPtflNwRJMtqk32 vVNjkIDbtHVhdh8ezuFb dROwaEKoXPD5zUYigjEg GIGunRVoQOYuDC1zcWOt LIKmlV8hkzvpIHUzTgVs eachKQBksYtnbzGzBk9a uKtrTBK0GKdiM5apxJ8b DnP2VZhhJ6tfiT4jXUk4 EVdvsHC0HTBveS6nRR0p fnder5jdKhDkZB3rjjux q0kbRmQxAY8nqct7j1jj JAD1MRocRAOlLaF3oeN3 NDBcaGVhZGVyeTcyMFxm k061HTO8QmNzLPNym6Iy K1EmmQbfG74urHksX43l BWTjwJbzqO2bmNonjY3i ThLyNcYgXGl5wa87BLa0 tjclbAoqPOp7ifMyFXEs XPU2XFMztILaHRLdQ1j1 tsYpVTCoBEX8ETCbuALw DXJzE3v1pkDnCWE6IMs1 cnBhZGRmdDNcdHJwYWRk YjBcdHJwYWRkZmIzXHRy pKThaMJwgMPdsY3fcYsf NRBehNKovC6oBET0VTTe cmgzMjBcdHJoZHJcbHRy wl02OHKjefFnaBHlkPbz oBBlRPA1XEReRNUlJFVs JNL4STUrQaFyssBnSUow bGJyZHJiXGJyZHJzXGJy QZG3TTOrBbNowsGjVUsv bGJyZHJsXGJyZHJzXGJy WMC7ENQoKsDmrjFnRIln bGJyZHJyXGJyZHJzXGJy NTN7BFWxZsRjrrKeGEhy bHBhZHQxMFxjbHBhZGZ0 Y9dkhMHuRPAcCDdkfDXs FDVyC6idgCPbJDuaHFHl cGFkZmwzXGNscGFkYjBc D4njZTNtBqKwZ0YjpZw6 MDAwXGNsdmVydGFsdFxj sJQdTWE8ACHnQCWxFHZe VVU8RUSaNbBgafOdKSdj bGJyZHJiXGJyZHJzXGJy PNH6ZKXrYeKxdeCeFYpa bGJyZHJsXGJyZHJzXGJy FYP2VEOnPtHiqjKaMLrm bGJyZHJyXGJyZHJzXGJy MBZ6YUWwNtPgotLuDYlg bHBhZHQxMFxjbHBhZGZ0 N1oebHHpHHQtHQodnETp ZRNbD7dgnVQkJLscVRTo cGFkZmwzXGNscGFkYjBc G2ngNRDoVtAvL0KtvFa7 NjAwXGNsdmVydGFsdFxj qJJbOVF8EDIaRMEsSCRh BPK5YOJyTwDnluNbKLey bGJyZHJiXGJyZHJzXGJy OAQ8PRDmAbGtlvSsHEgd bGJyZHJsXGJyZHJzXGJy VBW0WPMaGuSywfUwWFgh bGJyZHJyXGJyZHJzXGJy PID7GJJzWiUtvrJeOQtr bHBhZHQxMFxjbHBhZGZ0 X5zzvIWdWMGeOHvtlWEj SLYvY4tocOKgYEmvXDLm cGFkZmwzXGNscGFkYjBc W3snVVQvNjTyH1YdhRr8 ZzSdQDKyjcVwiG00Oxuc s3DdGWUiGQA7PNgsNZqa bFxwbGFpblxmMVxmczIw NNihlbohBEEnVJycK5lh HhYhHHBavXxsTBcwg8Hq XGYxXGNmMlxmczIwXGIg IUKtGECxuX7tEjzbF0Vo rA8xGFjaArdkC9grGRHi j8UsjO5tMPhpfQVazhwo MVxmczIwXGxhbmcxMDMz IJkeC8mhPnTjMUTvsEtf RLrwf0IvSUYtESMlCqld jvJlOBv4eaYcIIAcpNzq tVIrXHtbkdIfuOcqo0Ih xhNryXpzLZXpMIs4hbAr swpjaUu1uTLctGzfXHRg gYpgvL9pNbOwWhIhJRqu bGFpblxmMVxmczIwXGxh jttwFIMaFQmrB1feXnJp EOItkTlgIMisu1TiCUHz YRFcBxertpScMUKzA10g bGVjdGVkXHBsYWluXGYx XGZzMjBcbGFuZzEwMzNc aGljaFxmMVxkYmNoXGYx CPxbA2wlNwAiK1QiVREi GxOtrNElN4cgU4VpxAbk YXJkXGludGJsXHNzcGFy DFU0nFGpifHggDQnhHUc BZDaBYazIUI8vGMolnsl bEOolcbmCFdkrvQ7LCTv YWluXGYxXGZzMjBcbGFu ZzEwMzNcaGljaFxmMVxk ObSrPNRgNIzeA2bjRtNh W2BqAHHkGnPhWoARCPRe aXZlZFxwbGFpblxmMVxm czIwXGxhbmcxMDMzXGhp H0dxAaNsYGLszPqcXTzw c4WdFUYaZMMzNprjubWl XNi9zoJpRWHtaVfigA59 Ulfuwx28YOHpg4jmOIQb Y2EqlSZsDCAlnRAoGZqn MDhcdHJwYWRkZmwzXHRy cGFkZHIxMDhcdHJwYWRk ZnIzXHRycGFkZHQwXHRy gATtODS3M4t0laJkFHAa EMm2deJmGLUmVqGbmXSv AKJ6SSr4HtkzykX9kLAd D5v2OacthtJrGHspkWZi rt19AYHlsrZgcLJmyDoe nVDiCLE0IFLdYYFxHQDq XWS2EGKrMsWqjxDmUFfk bGJyZHJiXGJyZHJzXGJy RVE5ZDWuFfOcbcPgFPzw bGJyZHJsXGJyZHJzXGJy TJJ5QCNqQsSxzbPmBTsm bGJyZHJyXGJyZHJzXGJy NCA1PAGpQjNunbCpFGxt bHBhZHQxMFxjbHBhZGZ0 Q1subMQsXXQtVVlgrNYx QDPxS6tknCVaYVqhSDCt cGFkZmwzXGNscGFkYjBc M9fdOLOrOyWyS1AyqFy8 MDAwXGNsdmVydGFsdFxj bHBdBZT1SBLqPPChHONg CJU1JXBmBmFiufXyOMss bGJyZHJiXGJyZHJzXGJy WUR1BNFyEmYcypUxRIbj bGJyZHJsXGJyZHJzXGJy TBY2HILjKuBykiDiWGcv bGJyZHJyXGJyZHJzXGJy IPN6RTFxRdMttmWqAHsb bHBhZHQxMFxjbHBhZGZ0 B4nqzBOiVNNiDZbavKMb EORjR7qkdYGdVXevQYEg cGFkZmwzXGNscGFkYjBc D1xbGRIgPrJgU3XrjMd4 NjAwXGNsdmVydGFsdFxj oPTvYQW1JLDtWVNoKYHg GVK8JHHbBaJawyJmOJtx bGJyZHJiXGJyZHJzXGJy QUL5SXKnMdJuggGaEFap bGJyZHJsXGJyZHJzXGJy BLR6YKJoRnHbtxGkOYia bGJyZHJyXGJyZHJzXGJy YJJ3IWIyTpQlhxPsNQaq bHBhZHQxMFxjbHBhZGZ0 O9lpzWQkOFApNHsowYUp AYYxE7ueoFNrJMdqTOAq cGFkZmwzXGNscGFkYjBc Q0axAQJdOrVeO1KtfDl1 IwMoKCHonsCvrG87Xyhw m8AwZQEgJES3GQriALsw bFxwbGFpblxmMFxmczI0 XHBsYWluXGYxXGZzMjBc bGFuZzEwMzNcaGljaFxm HFifXoSqPUNdKGvhR5jl BgTsP4LqHZYdHqMdIT2g FxV3CNQzCUqaLSI2VXUR UCIyGUCOQ8IGFegwAWWH C5AepHubgA2gRtMpNhAt ZIcwMB5mTATaC1ltmTVx FCXoUXVyH1isVeHbcQ5m aFxmMVxjZjJcZnMyMFxs dHJjaFxjZWxsXHBhcmRc mR42Mxfwl6DrUUCtHLW5 MFxzMFxxbFxwbGFpblxm UQinwuE8BYTgSBybPNIx XGZzMjBcbGFuZzEwMzNc aGljaFxmMVxkYmNoXGYx OMrzR8jfHsRjZ6ZnPPSo MjAgMTIvMTYvMjAyMlxw bGFpblxmMVxmczIwXGxh zvhwTEXaZRjxV0zqYsEv XFHtaGvwGTape2LlSEDi UZCgLilzgpBpJZa3wtDh XGNlbGxccGFyZFxpbnRi aHzhb9WzdeAcqRjtMMOb XHFsXHBsYWluXGYwXGZz CaRlwYkiiX6tEdOjRhDh QUibBV9hLJLpX3jtzMRl SIUkNPHjY3tqJxAjyF2d aFxmMVxjZjJcZnMyMCAx EaT5UeEoUjFyoHxnjN6p UpTwWsVmOGmrPF4cUQGk X6nsvWYePZTcWDUmE4wy HkEfrD0kyScnQWuqObLs ZnMyMFxsdHJjaFxjZWxs OCyokINzUFLdn1dfXIRl TJDndRFlWHB6sHYktlVe kSkqyFwimY1bCkUiBmUd NFxwbGFpblxmMVxmczIw KZuvfopxPPYxDSptE4vr KfDwLTJoeAgxOViql8Xl XGYxXGZzMjBccGFyfQ== Addendum 1 (test code = i7qrzJUdECQwgPDjVZOw 37) IxsrabVkXJUlnTUnV8Xj mbhpCKoiMX3fJB5gjCwb iSUirTEcSXMeKhTaz2xs e842kBOvb3ilIZZFLBdl JPUFMHw7f7ceIVIWwiqk gZt1yIcoU61qq9S7Gtlw O30blTIlZTM0LDFrALCh oSZnJVSeOGF5UYKvmJDb J3tdQABkQG3umdiyIVwa VMgcWMMvoEG5UOFzcDDw G5BvYLFyFRlwXAHorfa1 OhUmGw7wsYBotMjtLDyv YXJkXHBsYWluXGYxXGZz MjAgQXQgdGhlIHJlcXVl c2Vjd8QniYppYDMcLHF9 qR3sQVCzxJOkW8hnncJ1 vEYiNn3skS64gV8sVBM8 eFHuCALtn9WdBQPhFXFz f2QkAGOpZK9eGEkibBQz rWBaxWKsENI2XE1SFDXx SDVwo33aIyHakEKbRCGt faUdzMLtBHXrMHC2qE4e ciBjZWxscyBhcmUgbmVn GUHjwdKkCm4fLFwnghTy HVGcGKKqhPKuiU44wt8q cIO7r8NbOE7iJ3MqDNRk OPx5z5brNsHacXDySXGh cgEltLTzOXQqMVA3nR4m roJwPGzlqaIyomWkuD3e aXRpdmUgIGZvciBjbGVh bsGjFK2YSKZPEHJyZZZ9 GNXdKGKduRAuwT00qv6o jUI4s4ApDM5iN7MbPWSi CKa2s4vwQqOqkLBePROn xsPUMY7KBGRyZ0zhlcJq MjJDMywgRGFrbyBQaGFy jLM2YXFXv23ozQ5yZIZE f0OenMr6THSYW57sKDMn X3KFTAzczGXteXBpxxO1 aGFuIDFccGFyXHBhclxp OIBoLSAxa5C7OUiwRu4h tQJ0wJ9oGVBrCND9JLBc aXMgYXNzYXkgaXMgbWFu fDLyW1P9imYiIBW7WLJw aWxlbnQgRGFrbyBhbmQg kFTsivPlCH7sen7uqL4i TIoiPW14zD0KGP5VAInx C3qtkjDtZyIXAy1kEZZa lZUkiVAgCg7jrWYcWB5h NIVrwm4meLfdKZDlfMQj IHBhcmFmZmluLWVtYmVk WQVbJZHun0C0BHO8o6js YwPmesUMK0hcGR93PLZy t36qSTV6s2E5DRxnPLPh TT0sTQDusXatZZIyIxDp HOInSDA5CIW0dN5yHItg jNgoNHCvf3NaB8bssGCj RUY4QHFxFVIaIK91HlPc yRVeCJRcHIt6DOxqHOXn vJCmhtTfSFClxbQ7s8Sb TCXqFIEmx60fWG9er29t LMjrV59xj9DlOmMek7Qs j2ImW0hmvCMzhRvnkeTx yIPoTC5tTJIpelHgrR1s pDYuy9RjsGhgZEVnQ14v TrpsQKVvkN7yfEQwczSk i1PkbrHzGTNRWyhwjVCh M6GpF2YmOPXuIUApaiQ6 jCNgkeDkQdJzKJ0rSJEU AHtfIGH3STzptY5oEOMw cDfmYVt7sMRtaNZmyT55 ZKIortLjeZZxm8YeH2Qd bSKwh2nqd2szUyPxJI2o rlUjk4EpGKG8WAeqeK1q BU0uOWPlfGAydpIdemMs hZv6QDi2dWVno9I3lWCh ANUeGNStUHGjz9TaGBvz kbWrnaV3rUFcqGAcu3Xm LXWwSTRlyF73lP4cHM2f aFOrXM0hrAGcw5KmP5r0 s6XgAJOqfDNje6QnoZ9b padvo1DiXJ10ZJzmzGPg o3r0wRocRAt2tLIaPRSf dOL5hQRgqN32SExdvxSd NgSoTJ2dJAQeSQQrWUYk pcZaa3m5DHC2wM9fhtJz ZWxscywgbXVsdGlwbGll ZCBieSAxMDAuIFRoZSBt KThgkPByXDGop3FmIMrv RJTnLvfdRWPcASEmF1SL PJSrSX2miPQmOSasTXYu clxwYXJkXHBhcn0= Diagnosis (test code = q7sctFFuARKruWKfUGYk 34) EinysmTqCBOdcWZfB3Hy mmzpWCigXT4uPU9vfAsy gXPayRUsJVMlLhSga6nd p551bYBed5ouPFRJhwhs vIz5oIuzO02cg7Z4Jjdg F9fwQSGwNBbwUPLtPQya zYYwNPp4LYHjaJZmymEu LxMrJKOygCYowRP4IAYj IL1exuafHZumOXswCIRq jkO5BASowFLfJ8ExLKGp UZ0oqqcyTGT3ICfgJIWo CQO7DuHcIIMgv4Nljzg7 MjBccGFyZFxwbGFpblxm czIwXGNmMSBPdXRzaWRl IXrnLwxQPtW4SpNfOHcp F2YwHSZzUxwLO6tHCTVu UDRJJtvhL21nbKDsqPMc XR3sVFHnPzZ8WnEzVlTt EzagZRNsG0AmFIHdtvfc cTeyOYzbeL28HdPeCwWv o4ZaREV3yekbZHXgx9Ng eEncrHMfYHmvDdY2GTqq wS64NiUopXmkHfZ9TOCU VZIDW8gEAHEBX2DTUsVN ODMXPA9JDQSkOEMQQMLL ZHYPHx9pPLlIDPHuCJCf T20qbYZbzXidPTIfnMTd XGxpMFxmaTBcbGluMCBN RFcvRkxaIFxwYXJ9 Comment (test code = d2vnnEWgVPXceGDqCXXc 9848) JitwnaRcEKYaqKZpO7Rx bdidPAioAW3mOL7tpRoo dSMusWXeLGBtXuBcv2eb j856eKCxj2qiEOSIyueh xFh6aFlvI64xh0H9Wqfr Z73vtZIqGTM8GSIdWUFc vCEfNZPnYCU3ZGUbxEUr C0cxKXCxLP4bajjoTHzk XYazCSEbmHH4YICauYVq V5HvFQKhYWrxRNNdfoa5 CcZpXr5nzKAuyTnfWTtt YXJkXHBsYWluXGZzMjAg D3VxhUe4mFZiQOpplOUr p0knr7VwZ5dbcIyxUDdx c1CbeC3lTMWkybUylq4g ZCBieSByZWZlcnJpbmcg qR9ohPc0eYBxw32xk0wl szX6wWM5QOEPGaDmyQal bGlnaHRzIHRoZSBlcGl0 aGVsaWFsIGNlbGxzLCBh bmQgcDYzIGFuZCBwNDAg bIepgFpaZ3a6jcX7bFWy bXlvZXBpdGhlbGlhbCBj BHygom7jRKAbYVEoa5Qo bK7rr4t6FVGdQKLhxI93 ky6fpADzu4X2cHEliZLf o4UxbL9upSg3FHPrSnR7 cAuuAWViHIIzlRWwA5C4 jO0tUgXmvEIafA== Biomarker Block(s) (test n9ugdAXhZYJnvRUtAPYm code = 9841) KdvabjDaKGQgaYWiJ4Nq nmyqQPstWL4yYQ3wcRbe fGFvkLCiQMVuSoPav5dn u763iKWau9fkMXYFujfz bNz1xFinJ40oc4C6Osqt W1xdDXOuVRqqFYGmJMub fKQyEJw2MFQhgBIcsqKu YePrRDEvzARwxRP4YFBs ND8ufvwxQDssSPswFJDm hqK2PDBlwZPpO7ErNZTt UA6dmfysFWU9RPqfXRFh GOI4MzXwGHUgr1Xdcrh1 MjBccGFyZFxwbGFpblxm nqNxZYH0jK5vCIQtw6Jn OiAgXGNmMSAyMjpJUzE4 NzBccGFyfQ== Disclaimer (test code = f9gguTKiQLAbyTKtTjKh 9844) UUZqJDDgc2kfWDNdoTFg ZzEwMzNcZnRuYmpcdWMx GHUcIsGws9jog362aMAw m4mgUOYlWwJ0sGXnXCVk cLXdZ604WZYjLDkxu1ya p4MlFYTsuUEdz5P5YHIP xtnkaNk9fGwsA90qj5I9 ScugV4tfRMHhTKDzD2Mb EN3eWDZcChw5MIE8FGC0 ZEUuBRQqZ8NcMF6qNJIt oCKgPTu9x9gdtSetTXTk QPL3j3dcWGolevFuUQ9f zh5ilBo7s0wwacPyXHVb PHMlkHSYPPElL5GhmUub Xj1nyCj5mEdbHfyyLPD6 Zkn2JC5nfm06ztw4jYyv IJGywtgjErB8CIokTZBh esoqPBz5BCodCBBmnMR6 MUGpdGGdR3VyKKNtSP7u yvb9OEC5KMwvPULwLvU6 NDBcaGVhZGVyeTcyMFxm l324HWS7SbLxJR5bL2Zt y9D6rM6wyFDpEKKipMQj CgFhZVFgcx5iqPZcFZos v3KtIUL7ihP7vRVbnJJz JUKdCX71Izray3LaFsnq ZBJ3EHYcdiCjj8Llj0tu JcGkwkYaJ7ilK2ImBTTj EOXqYAFzCaFfetXwr8Kp a8GrjUXdzHv2q9uyTKUr TJXlpQcqs4mpVYV8OXUb Y0A4jEZtm6deZGsdDLFe fRO1ohU4ZNUcqRQoN5Yr sZ4yEPAsSM3xkcs6k9mx PSR0OQgyQEMeZzG7ciQ4 NDBcaGVhZGVyeTcyMFxm m756YKF9HpOoPREwt3Lu T3BgzFooZ40wvHznI75z SZFebNndzL4euMyeoQ6q ZjBcZnMyNFxxbFxwbGFp igpkSLdpyyD9SZlvoivp IQRrNFalD6seMeTdBGSk vVfyKGias5KeNZEzPRGt EvkznoB6QGBTm59sKOIl s9AvZJEmzA8fcCQrPPao qjQneNT6DDkjzwIqKsQt dyBtYREdbZ5xJPWoLS6w CYUjylKsfr5kfrGuDQZb YREzH6DssbdvnQfepbSt ZYOakc0csiNxILH8DHNW NO9JSMGlZTYki06xGMEk fEzelN7iaBYrjoZtNBKr q0KmpA0tiZZZKCZkA9hu XG2cFGjhs7IosGMkyMGz eYL9NICou1OoStHbxzAt kDFibWLuI2PbwWtrR3lu YZRaYCZvpsAvjXOqv2Bw WVJrrNM7kIBlBJ7RFtMG u32mMVNlAOYBvgReQUIz gPxxgCE3kbN3hT3xLuYY ZiBhcHBsaWNhYmxlLCBj z798nt8agyG3GUSsNOEh jdyxs5JnPPVfWJNtfW98 WSHbYBPrqf3eewaqiOAo ckUjF1Yrbmx6rS1cOKJn YWluXGYxXGZzMjJcbGFu ZzEwMzNcaGljaFxmMVxk FsFcICNiWNylM5jjSvBr ZnMyMlxwYXJ9 [facility] Outside Interpretation 2022-11-27 23:08:26 Test Item Value Reference Range Interpretation Comments Materials Received (test v7xmsRXmPLLcsBMgLsTm code = 9973) IOXsBUYzv8gnOKRdtENl ZzEwMzNcZnRuYmpcdWMx BNTwDqIhm2yos641eDOt h3myECVyBkS2uHRfQYHv dVIkX917FJIfWAgva7zr m2QwZTLgcSQsb1D5UXXP gtaujWc2bZttF83nk0K8 KzueI0guFHRsQVRwO5Rf RX8sZPCzZdw7HSW8VYY1 LJWeQOUwQ7KcXG9nQOYd zBOsYCh5b8vgzVlyWAIn NNH0i0ecPXptgsVfJJ0t yu6pjFd1l0uvqaCgQNGu ANToxMVVEEKzM1GjiFxu Fw4urIx3dBhdXdqjWZI2 Egc1QY7ubn57wgg1hMij YVRghneqIjI9LVioSUJc xyonJGn3KVsvFJDlvXqx MFxtYXJncjcyMFxtYXJn jUK9FKXadJSoL2KnQZPn JCynVQQbmqw1VbMtMj0h cUYmwXnuOPdar6kam4wf sSMdIwu0HVGlKkNeCosj LJiju4Wqz9laJYNpyn8f DFX8gEEqqRcsd1X0bOXj MZAzcEDpzlHtLRJarv47 xLAmnRPicHMzex9gmyRv tDXjdIZsFLK8tMJejwWs GRObgTNhQKTbCW1cnCZq XZCizK7ckgsqTAQuWjTs frtlBNDqeNzmupShIm0h fCloEFI3DPuoX1gdgY6u UzW6NDxaJ6igcV0vMKa8 OUhfhUM6BNStpK5kCT3c nnhvk1ijDfWbCX9lubrg h4vtIpJrCD2apik5l4hr HXJ8KMavMHWrFmQ4qvV0 NDBcaGVhZGVyeTcyMFxm m434GIK5UrDxPSPre4Mk P7RrkQblZ07skEcjG36i WQPdeItquI5aiBrugS1s SqQhZvDbSKi2dj42SPx0 xoddfVxyRRp7inWxRKHz MVJ6HLIokOXyDILnG9q0 inRcWXIwEAF4BCLtuZMl FREuM2g3cfEhMST5LVh1 cnBhZGRmdDNcdHJwYWRk YjBcdHJwYWRkZmIzXHRy lFDdqYXcfRThlM6kkUbh AKDzkJVuqB8yWMQ6DCXw cmgzMjBcdHJoZHJcbHRy jo35FILkheMpbKVeuDgf mKLoRTI1DQRdWLOeADQy ALY2QMVtPtDyqwImFGxl bGJyZHJiXGJyZHJzXGJy RDG8IPXfCrCrniPtCRwc bGJyZHJsXGJyZHJzXGJy WYB4XAWfFiBettWaPFjs bGJyZHJyXGJyZHJzXGJy LUL4NMWzXoTjliXkFLem bHBhZHQxMFxjbHBhZGZ0 P5rvsNFoLHKpLAjjuHJg PBRaQ2oqtFTcZYxeLZOw cGFkZmwzXGNscGFkYjBc J0uxHAEmCqIrJ0DyyDy8 MDAwXGNsdmVydGFsdFxj oJKfOGV1PNVrYBAvCJQw DYD9XSKnQyEhapNyVEwi bGJyZHJiXGJyZHJzXGJy HXI9JZRcIvCfoaYhVIzl bGJyZHJsXGJyZHJzXGJy TRE2ACUyQmUyqlObGFyb bGJyZHJyXGJyZHJzXGJy EYU8ERQjScMsfhZkLMvq bHBhZHQxMFxjbHBhZGZ0 Y9wzfBIkQCStIZrjiVQw ULHkW9knkARnITfyVSRb cGFkZmwzXGNscGFkYjBc U7gxBLJdHrOkO1CatVl1 NjAwXGNsdmVydGFsdFxj mFVlLEJ1IRPpBXEnFPKy WLB3JVVmRbAblvHmDQud bGJyZHJiXGJyZHJzXGJy ZMG0UVPuGpDknjWtQNds bGJyZHJsXGJyZHJzXGJy LYT8OBKyIfYzfbWcYPqi bGJyZHJyXGJyZHJzXGJy CSV0VHHbDzGtadKfMHak bHBhZHQxMFxjbHBhZGZ0 T0rpfJSmFAFcLKezxRBj SKMaG2rjiHDmBQuqCSEz cGFkZmwzXGNscGFkYjBc F9vmWYBlNwAyY8XlcJb0 DyLaJWSuefNhnX10Fzal w0TeMKBnNGP5NRzfUErj bFxwbGFpblxmMVxmczIw GMfhdwgkTGBaCJjjJ2cl QcHfENMruZdbNMnko6Bn XGYxXGNmMlxmczIwXGIg KRTgODQwbO8tCvquJ4Bs qU4zBOniAlptI4xsTBIy w4XiqF4pFIqcfFKpgams MVxmczIwXGxhbmcxMDMz FZpiB5mjXjGqYVGtqKmc TGfeo8ZvRTKdXVOpOvmp oqMpNVo6ydFgDLPbqUnk bCOeMElluuNdwHjrt0Co voVssGyfUVLrJDt6ijCk babglOc8oWKkoDuwFJJo dQldjK0mEgEmOoCnISbr bGFpblxmMVxmczIwXGxh zdehAAJoOFvyZ0ynTcIz FKUaoOciYUhly3ZbTFVi ZTYjHvdvmfHhDLFpF58f bGVjdGVkXHBsYWluXGYx XGZzMjBcbGFuZzEwMzNc aGljaFxmMVxkYmNoXGYx EVgmS4uvQrUrZ2FmQAUn PqRztUZvA6dpD4IibGuy YXJkXGludGJsXHNzcGFy TNS7wCSjbnRhsXIanLFj DCBzSDlqTDC0pJTwnkvp zYOkuahmKNzxuqE6WGKr YWluXGYxXGZzMjBcbGFu ZzEwMzNcaGljaFxmMVxk ZvUoNOFnGPitG6pnMkAd U6XlJCCyPmPjIbDBRBDh aXZlZFxwbGFpblxmMVxm czIwXGxhbmcxMDMzXGhp Z6niLvFuCSLzuXfvEBqr j9LmTPCnMROdIvnqpzXp FTt0xiGtHEHtlUummO76 Mwbubs18HBGqt4ptXEZi W8ZnpEFnGBUvfSCnWIkp MDhcdHJwYWRkZmwzXHRy cGFkZHIxMDhcdHJwYWRk ZnIzXHRycGFkZHQwXHRy sQNnWNM6F9h0eoLjUVMf ZNo2moEgJKAsSlZydAYy MFX6JFh5VhcangT6vKGn C0i3OlpqdgMbDBwwkLNh fi66TPMeziFwrBNzeEgr rFMuQOE9UYElWLInCJGn ZET5COYuRjMzyvMySTml bGJyZHJiXGJyZHJzXGJy MUM0LECpIoOxdjBjSIgb bGJyZHJsXGJyZHJzXGJy QBM5JOOeXdSgthDmYVfw bGJyZHJyXGJyZHJzXGJy UDB3EWNoCiXhvdEpJNzv bHBhZHQxMFxjbHBhZGZ0 E9ucgRNsOJDjNFrfmHYc DINxG0ifoAPoRMnnTLWa cGFkZmwzXGNscGFkYjBc U1koJDXwLzAwP5GldEu8 MDAwXGNsdmVydGFsdFxj wQSmPRI3JHJePJCiAUXy MUY1UUZkLvZbacKgCRtf bGJyZHJiXGJyZHJzXGJy KMD3HPQhEmGmmxWfYRum bGJyZHJsXGJyZHJzXGJy VYH7WXZbHoDqywYjSOxe bGJyZHJyXGJyZHJzXGJy SAR9PCXvFcDclzRhREwu bHBhZHQxMFxjbHBhZGZ0 A9gpyTFyEKEuRRprrKAr EDQgL4owkACmNXgzMQRd cGFkZmwzXGNscGFkYjBc I8xaHZNhCsQgQ2PuzBj9 NjAwXGNsdmVydGFsdFxj yBRlNJA1XXGsFBHeXJKe RQB8NNGeGoCxzuLkZPsx bGJyZHJiXGJyZHJzXGJy DSP2JPVtPnXsrwEkWNfv bGJyZHJsXGJyZHJzXGJy ESF0RUThIbFuslDuRThu bGJyZHJyXGJyZHJzXGJy DAU0QENiBzPksbBtMGfk bHBhZHQxMFxjbHBhZGZ0 N2wlqFHbOSXdPNctqLFl FQYdQ7wabHAaRVywOFYt cGFkZmwzXGNscGFkYjBc M6diXOSkHrEsZ0HodMo8 OyVkWANwvvOljX12Bart c8NmJSHpBVT8OAujVGkj bFxwbGFpblxmMFxmczI0 XHBsYWluXGYxXGZzMjBc bGFuZzEwMzNcaGljaFxm JDlvOpLfQSGpCUikV4sj FnRtL3VxLWGzZsYbTK2j FeM4VBLnDDhaVEB6ZIIV UINcQFGMT8GSFzsaOXQT T5NafPjrwA1pIpWbZqZx IUdcBN6fTMYkP9eydOXz BUFtZQHiJ1xxEaMjyP5n aFxmMVxjZjJcZnMyMFxs dHJjaFxjZWxsXHBhcmRc qI89Ppkyj8FmBDSvLGV0 MFxzMFxxbFxwbGFpblxm QLugijE6JLRsIRaeMDSj XGZzMjBcbGFuZzEwMzNc aGljaFxmMVxkYmNoXGYx GNbqY4ryEhAoS1PrSMUb MjAgMTIvMTYvMjAyMlxw bGFpblxmMVxmczIwXGxh anuiMIZuERdwP0ihXrQv WRTqoEfkYJdxe8EzJFNu UUFcLprsgnWzVFm7xoVe XGNlbGxccGFyZFxpbnRi xSosq4ZzbeMiqNiqQKRq XHFsXHBsYWluXGYwXGZz KdLhvZcvtA4nUxPcSsCx UVjeBJ6vRNPnR3buaUIf UWIqBLCzJ1evDgPzpK1b aFxmMVxjZjJcZnMyMCAx NaS3XdPzJxKkjTdzgE4a XpKwYoPjILmiPE9aJVGc G3fflAKvMJNiBMBbF3rp BaUhyZ6ucQhpTRloIrLl ZnMyMFxsdHJjaFxjZWxs KTdvzSTsDNJje5vkBVBb XYWhkMYpQJF4oUUhtyUh cYynyJvjaP0cSfUtLqWx NFxwbGFpblxmMVxmczIw SMzvwprmLMQlXFdoX8js CjYdHWVpvClsSBcfy0Ho XGYxXGZzMjBccGFyfQ== Addendum 1 (test code = q5cdsZOlVOPteCTyCPKc 37) QyehmhJbLVUheOIcI6Vv swblOUpuHY2dWB7kcPdg wTGxeMTvAJSoXoUkb6vt b445lMUjj4anFRTEKBcx WKIWKYx4e8rsFSHRnlxg tHu2oGovH27bn8K9Xzbh K45wxOJuGHH5URJpCSQr oYBsOQAiDQR3RMXfeMBa A1xeLHRyFR9uxqosOYos CUcaCSRbdDO6PVSbbMKn B8DyXAWqTEvmXJNmpxm7 IdUvAa7hrBFyyPthVEza YXJkXHBsYWluXGYxXGZz MjAgQXQgdGhlIHJlcXVl a1Dvn6CtmShvVOAcOZN1 lI5cYGQsqCSkM0etqcE6 lXTgXp8piO56bI5vQNW9 kLToBACtq4WjMURwPEYj o0MpATIsJX1aXWhygITs oHXgmLCtFVR0RI1UPREd UGTac04cEwOukKZvEDEl wkIrhPItAKNgVVM1xY2h ciBjZWxscyBhcmUgbmVn GNXwllLcEw0tSEsftqVb ATFqMVTswCJteY44rb1t gSH4p1SlNA6uK8LdXZJr PCw7t3crIpOfyROqUSTw rwZpyJNgMDHhLGM1gV4n aiDdFSmmmgHdiqMsiU1s aXRpdmUgIGZvciBjbGVh wdZkJF3FEAYTRBKbTIS1 YLWgRPVrfWQfdW14hj0y qGT0d1IxJO8tO2BwJZFa QFf7d6akUwHgeWIqTSLt tlUVOB5DFDDrA6oyyhOd MjJDMywgRGFrbyBQaGFy eKV3GWYXa48vlX7oTCIQ n0KvwOf6RHWMQ62yISXt L6HNCOpyxRWpuKPzuvA8 aGFuIDFccGFyXHBhclxp VHQdUEDft8V7EHxrWo4u rGP6eV0oAETgVCW2BCPp aXMgYXNzYXkgaXMgbWFu rPRyK5N7qkHwEEM7WQTv aWxlbnQgRGFrbyBhbmQg fBFtryTvTN0yji5jkD8c AXccRO07mT2GVE0SSQrq Q6pgtqHaHfSMYg1lMCWg aRDezGAqKm8nrVEdPN5c XOLamu8lcMpeVPTjpJPi IHBhcmFmZmluLWVtYmVk LBDcZNTew7N9BJX2k0wz UoRuwuHNB1suGN37REXg t91uHDQ8h4R9VFhkDRRz SE8zEANrcWxhYZLtAgVk GWVgBLZ8FUK6vZ9cXEhb rHioVVOna4HiJ2zdxAPb VNO5CYScYVFqSX98GkPs uKZdFWMdIUl5XLbbMYHp mXIyrsXlSXSvffZ8c5Vw VRQvEHIty10qWP9gq97p HFwlT99wa8YuZtOvy2Eu s4RpB7bkbDVtmRraioWr wSPxZP9lYDUhtcDrwC6a pHPdk6GllBtjZADqQ85d FrdiVEUhdL2pvYGrciTz n3IztyGqJSNGGfniuJCp A2PkD0OoMFIcUSGzitQ8 cDUmjdNpVrCtWW9vZPQR NDavFTX1IWhzhP2kQREy cFltYFz9yREnmLOgnT97 LHPtbyFvwIJml1AmU9Of iFXnl3nxv8wkWnScBB1j zuEhy7QoOFD9SAlgnQ1a BO6pWMRcdBDddfHkwiAc xQa8WLy0uBKkj7T3hIUx CBTxXGQkAIHsn0GxECqm yfEbzbK7tJEozIUog5Cx GLBsFYKgfV79bQ9nGO0w mJTwFH4xtJJpj7KmL9k5 k0WtGFJijWKff7IwfZ4k gowxp8NvFJ68IQvhhXBn v4s1sSrgLPn0jVHmTDZp rDQ8rOAauT29GFlgjiAl ChQmYE6yLSNgEKCeUSOp urEnv1i2DJZ7sG6vetXs ZWxscywgbXVsdGlwbGll ZCBieSAxMDAuIFRoZSBt FVqotCVdYTYvs3LbOAez OMVySjzkWIWlIYHbH4CK UDFhWF7fcLQyUAwzTUNy clxwYXJkXHBhcn0= Diagnosis (test code = g6uyqIJxCABaoJXrIWTc 34) HpvkmoXmLOStkIQzY1We naheOZhsWN8cYN4nlRbj qCIvyYTwDKCqQeYbk0xx x448rKCei2rnDIDKhirh rJb8sGwmC03bt0H9Mjbg E0tyTFFsNSknEMNlBGva mHAnKLp6LRLopMVvceDq FeQnGWKycHHzgAT5LFVn YY0rytomCHytWPvnWSDw hpF9JJJrfUCcE4TdSQVv FF7zbkjaIFB7VVcpLZVj WCT5EdHqGCVbn1Tqhfb2 MjBccGFyZFxwbGFpblxm czIwXGNmMSBPdXRzaWRl AEplNkhIDrD9JmFpJHwr Q9ToALLnHjoEM5yREBUa ZRNGXjctO70omNZjmHKh CO4sVMIzJrU0QnLtBuMw FynzCPBkZ9TiLPVslacb uCcuPBodfQ14LhOaHzDk d4YzODF2yoaiJWUvj4Ey bSimnGFjBCmiLdM7JXnn xZ55GwOutEheNiF0IYFY GFYKA6aJJWTTH5FLGrMD SRBMEY5GBJKlTRLXWWGR MHQGFf6jWQzBASKpXQWz M07wfMOduQrtGLSehFUp XGxpMFxmaTBcbGluMCBN RFcvRkxaIFxwYXJ9 Comment (test code = v4xakAHwPROvwODwXEBo 9835) UtibtxOaQXUinZCvH8Hd hvjtXYjhQC4fPQ7csNca jQKsaWZoAGQuEmQsg0ed d689wCJzj4wkJDRCulba zQf1sNbtC06jc5T4Cgkn E66uaPIkIPS5UTVdYFGj xRKuKOStBIP7ZMLekVIw V0cyYYHtGQ3unqnoPNaz EFudRKFokJM9EEItkNLf T7FqIJGcFVdxYHMhqic0 KiDcHk7llLCmpLuwTTxe YXJkXHBsYWluXGZzMjAg U7FilOr4cRHtEZtjzJDb s5zaz5DhX0qywCzgFTut b8GflG4iZAKegbUcgn1k ZCBieSByZWZlcnJpbmcg mV4esMz2zZZuw55te1yw veK0oUV2IIMTBbYblLiy bGlnaHRzIHRoZSBlcGl0 aGVsaWFsIGNlbGxzLCBh bmQgcDYzIGFuZCBwNDAg cNtrvIsoS7o2sfJ5aYLb bXlvZXBpdGhlbGlhbCBj MNedbc6nJMYzWATtq2Jh fX4dn4z7JPUkCBVonF62 ab3nzLPrz4W0lPWzxRNf t5EvjR3exQn9CBYsMtH4 cSjlLUAuCKSkjPUoA7Y4 uP0fMlDeyJTzkB== Biomarker Block(s) (test q4ccgGFgRBKlqKRvGGCf code = 9841) VlpushHxFBNkzHMmX5Up pzjoWQzxFQ4yJG7lmHdp hKLrgVZcBLXxHjLta7bk d216eRQgj4zoFGJErthy aJy8rLczH70by9J0Fxsx O3yhVKApGYxkMKTrFAsf dYOyQNj1XUWmdLNlqdOv MdKiFBIdsZEfoHU8VYOh LT0pdyjnYIntQZkgQLXy mfS0YEWkoBIgT9OjNUNl YH5jgkwrPNB7SGowOEJx AYD3SaOeJUUyt9Jcrqk8 MjBccGFyZFxwbGFpblxm ehFuPYU9cP9vCJIoy6Pv OiAgXGNmMSAyMjpJUzE4 NzBccGFyfQ== Disclaimer (test code = b0wrzDMcVNBfoSNrLcBb 9844) FMIkJXFos7thQTLypYWj ZzEwMzNcZnRuYmpcdWMx QHJvVbFon8rby377uWRw u4ioLSXkPtV2aJOcHUCx pASrN506CZWjSHsde4ke z8PbGHLwdBBvv1K7LNRK wqsnoBf6hRrgR74bt6F6 HqscA3yiZNZiNDBoQ7Kq XB4pEVOiKnc9HYN3MVZ3 WESeOOYbN4SyKW9qSJKj yEKpKVb4x3jnlOygLVCj ZET4e9haBMfuljMuIB9o lq2nlUn1w1gsleUsMFFy GBIakLDJSXQhL4FefZvr Ya0lcJg2bFmxLqlzWWX6 Phu2EV4ucu46wjt9kZap NMHzybuiDnB8CLvvEEAi gibiGVq2ZRlvHADrmOE9 KCTlqAPgV0OxFUJfUD2y qnd0DPL4TOsoJFUuVaG2 NDBcaGVhZGVyeTcyMFxm l924OFV0CrHoWS8uF5Of b0K2vY0ijNXlWBIurGBy GqMyEBZubq1ycWTtQXjw l1TsUYT8zeU9oVVfeLNz KRZpBS55Gvnjn9SzOmzr VDP0QCDqqtDel5Dko1no BnJcjnBdS5ogC3MyPIIa MHBoXITnGxGisfQzc3Sk r2NzbUBkkVy2p6jyVFSt BGPofMrzy6zlGPE5USCi T1E2pWSqt6zqSNwwTKUk bRO1jtU0UMQpwPHvL2Zz qS6aASBqMC5joso8e5qc CFD1MTlxXDHnKmX0wxJ5 NDBcaGVhZGVyeTcyMFxm l826MLR5EiGdWIBat2Jk A4DqoQdtV56heIcoA13c YUGliVduoY5ifVlejT4i ZjBcZnMyNFxxbFxwbGFp awtzKOdumzJ3CWlzdpji ZJUwLAjmX4uhVkNoBGJu wSneJObja0DqWDGxFOLx GtcspcN7QQLPe69tUFLb h0ZyXHMwmJ8mkMAfXAhc pnFceCT6POfaaqLjYzQo dbMdJWCmfU0kZOPePR9f AWHxmqIeht9yapEgKBOy DEXkG7CvrdvyxEnlvaDu TUEtlt5latVfMZJ2OKCN AB9HFOTkMSMjj95uIQLz oMdloE2naWPuvcAzGLOf a3HnrQ1xiJTLFUZmR5qe YY1iPMrkx7DbxRJnfODu bOF2KJKpy6GxCgPuibHg yTGgmXPxP3QdwEtvR9ml IGSlQVYjaoZwrJNnr1Cc GHFjsSS7aKEtFS4GZvMA m70lCDPbYGYHjzOhLRZb oRqkpEA9xoL0rQ7pKjJV ZiBhcHBsaWNhYmxlLCBj d550dn0iwxK3HRAsFWYa eosox4MsTYEcEJPquX29 QZOyZAOygu6aopnfwRFq yxQpI4Cgfdy2lD6eOIXu YWluXGYxXGZzMjJcbGFu ZzEwMzNcaGljaFxmMVxk TtWiVTTbPXfiU7fbLwXy ZnMyMlxwYXJ9 [facility] MOLECULAR [id number] 16:06:41 Test Item Value Reference Range Interpretation Comments POCT Molecular FluA (test code = Negative Negative 70133-1) POCT Molecular FluB (test code = Negative Negative 79362-6) Lab Interpretation (test code = Normal 05575-2) [facility] MOLECULAR [id number] 16:06:41 Test Item Value Reference Range Interpretation Comments POCT Molecular FluA (test code = Negative Negative 69086-0) POCT Molecular FluB (test code = Negative Negative 64541-9) Lab Interpretation (test code = Normal 44176-8) [facility] [id number] 16:19:00Reason for Exam:->Morbid (severe) obesity due to excess calories [facility] : 1965 Sex: FFINAL REPORT FL, UGI, WITH KUB CLINICAL HISTORY: Morbid (severe) obesity due toexcess calories COMPARISON: None. TECHNIQUE: A veneer glue jointer feedback abdominal radiograph is acquired. The esophagus, stomach, and proximal small bowel are evaluated with single contrast technique after oral ingestionof thick and thin barium using real-time fluoroscopy and acquisition of multiple spot digital radiographs. Patient could not tolerate gas granules, could not perform double contrast technique. Fluoro Time: 1.4 minutesReference air kerma: 125 mGy FINDINGS: Isotope Hydrologist radiograph findings: Normal bowel gas pattern. Esophageal [...] Steve Swanson Verified Date/Time: 07/28/2022 16:19:45 Tissue [id number] 18:24:44 Test Item Value Reference Range Interpretation Comments Case Report (test code Surgical Pathology = 104) Report Case: [id number] Authorizing Provider: Dewayne Wise MD Collected: 01/09/2022 11:31 AM Ordering Location: [facility] Endoscopy Received: 01/09/2022 03:51 PM Services Pathologist: Evelin Wharton MD Specimens: A) - Polyp, Colon - Right/Ascending, ascending colon polyp B) - Polyp, Colon - Sigmoid, sigmoid polyp C) - Biopsy, Gastric, random gastric bx DIAGNOSIS (test code = [id number] 3220) FuZzEwMzNcZnRuYmpcdWMx IHtccnRmMVxlcGljOTYwMV hwpmUqZPAhpXMhO7Ytxpme OGpjIE2lYU6zdGxcrXClwG UmHVRrNtCbi4nqa830ePJo k7evCZCDhyfroBh5nVajG1 2vn0G7NrjbX71jiXQfGDS9 XTFhEWFutDHkTDNgMNB9BQ MohFYrX8guEQWoUD4xqnef ZGmcKHzdRPTrmBA1TUXdiQ OaL1IzQLZzLUsuOSTyrca3 WfSsRg9euOGdiBgmZPqjLN FrFPLqLEzcNRBtCvXwKD0x G78QO21kLPVSH8wHJ0VCW4 JXMMyRLjqxKM4JVQCYY0TT FCd9HJFiwru9SBDdHGXKFJ TQPHZTJQAYHB3PCNTjvCMl GULidsMCIrUNC1rRWfctS4 nUTO9RMAwxLA3BPGNBW5UQ MGl9LWPjafm8JCZjFXHJKI DIYRCWCYSCTM3IQBIoAXRv bymqAOXsOb1tO1AENCMDEG zcE8fZQSRWU2OeW1XOL6tJ JRUGDGKLGB3EP2znuREjKT RhYiAtIFJFQUNUSVZFIEdB K1KQW1DJRIzKDIStcjh7XL PgIIDBGEqXJJsFZM5IJ64Q JZUZIJKHWV6MQIEOVIaYHG 9HSUMgQUxURVJBVElPTlxw BTOzvGOtPF2bHqJRZULXKk RnOw1NCSwEHIlQR0JXS0DB SnBXCOMVX26NG0ZEZAZZUy UCYjYWU2YOJV8JITWEINoW H7yaYMK8g4kqlCZaUMCibH UxODAwMFxhbnNpXGRlZmxh btwxVTEsDNV4rlCbRASiAE qaLAUlRGzoPr6hlBPwmPuq ZmOrSWSnq5gbqiAMmouefE s7u5drBWLiSyI0tIDlMPxj R0kbgdFbpHYjGUKuTNu3lY 48SPExmA8opHHyBQxlnuHs GtW0CHutRYNaBwK5RSWhuD UrYCRmH0stPSEcGGvqVBPh OGvszGNbPAX2bLxks7X5jS VzaGVldHtcZjBcZnMyMiBO t4WfFKe5wQfsX2FrCXGtMy X9vPEjOHVlMGkiLFWoZKLb vgL6nD43LCflhyS0zVRgb6 Xhl34xw180bA2wwYHrDXZ9 FVQdHCMtuMWtBREjRMK3YM MlqLXrU3yxJXIvIU9jjkea DJvrLXpjQNOelXT5JQJlfN UjZ3OyBCPqESmhKSAzsjv1 PqNsMj2orCWchVpkKNwag1 cnp4kivNBoMjz1XVBwIgKy VqecQChjl1Iro4kiMAXanv 1jCSM7bSZdeKqvj7J2vJOp XCBvkQEqAMEyJY9wmWLkQM SuyA1htajgUNMgSkJputxx WQEwtHmoumJkYk4toVaeUN K9JXlhD5mqeZ2jUmS9JQkz Q2yvcF3pTHr8CRnaIFLxxA L7qcW8TKLjvHAiN5NtsR1n ZIAnAP7mkox9b8ubFLA8EH gbISPkKrA7xpB4IIYoyZWa SECggMhbNGatq566SNT3Fu BxPSHni9IlI4UzrMwlY91j oFntE76nDRJjuVrqaP3pbB mrmJ0qLnBxDjQiPVtrsNgh ZN7kPNTkZ3ozfFEvMXYiBF DeS7liCmEtjN4qvBjkLYxe zlSyHMTmBtt6BPCiwGVeRI ZuNni3JOHfUFQiP27crfxd LHU8kA7ma0bnd6CrQBqoEB C2WFQfj60oLJsonsF3NDwx Zu86OBzaPQU1GCtuZSW2rK == CPT Code(s) (test code g1tyqZRhFGKfvWY6UpNiAK = 3357) Jem2rul7TpjYYuxUEbGRfy zALnydLxsg13zIM5nU82WW 3oABRaVtG7RFFlxqO4Iju8 CXDhVSWnsBFsW842c1aeq5 rklsJubDN8fIqmAGZrvycq ZbM4FZxjCOHxzmrtVZt6WW beTWKvqKW0SMFxwQGsC6On LUIlVW9nwvz1DKF7IGweKK FsSaK4YREloAAwAQNoaIvu AKlsw940FCA4FmRjLCAbrf IdzAshwP7zXuWaFQB9CIXg NVgzXHBhcn0= CLINICAL HISTORY (test z5dveDCrUQRmvRE4ZbFoJH code = 3356) Obx7zhd4YqsOPmjJLyOQyk nZVlitSavt51eFT2lB23SA 3fQGPvFeU9LZNnzyB1Twa1 DHEkAMYbnTWsG268t0gdw5 xrkoXaxGP2rBlxHCJbhjyl FeA8NNrjEBPqbiyqOJz3UC fyXFHrvUV1KQAvsCWmP8Vh GVXxCZ2jvqm0ESR1SEnlSV FrAnY8GGZzuWTaNUGkgHeh AZvdc821VKA9XrMbOHYwri UglExegD4cYxAiFVDSHNG8 vp9ks16ltRUgUGJsPXHuJo r4fRRpqCQnYIRbLVNnh7z5 xPYpHhXby4szqpkuHMS9 SPECIMEN SOURCE (test i8rrxEXoNRHcrGP1HaZcQQ code = 3377) Bbx8zkw6WttVKxrLUeIGbs nAMhulPocg91pKG9uG54GN 0aFHLlYlD6XOMiriF0Wbs8 MODuBYEeyRIaF665a2lsr3 uaebNohMF1cKjnULEmxcue OnL6DNzwHXPavrpqTHy1GS jiBGUpxKI6QADqvYPjL8Vq LFPrKC8mwcm7XYR7QIqtFI ArVfU7FMVqgPFqPVUjdCap OVmxs501JXB9KhIeTRTdfb NfjNkcwZ9yJhVbPEHHGyDy SK1moNKhAKVnkQ5mAZMnA3 m8J6CcK2LzZUvoY8msmQ7m NSRrKHRVi9s9lHjtU51lv8 7co9nswI7lEEamtM6mHENe PJQRkU3jg5hwWVoex8ZowE MsIHJhbmRvbVxwYXJ9 GROSS DESCRIPTION (test p7mxqOBuOMCkdAGeZrUzXJ code = 3366) SuXWVbu7spNNWbxVLoXgVv MzNcZnRuYmpcdWMxXGRlZm Kxc2bfm020oDLnt1meMDTW zmlqmUo0h5kjYVBsThX9nI QoNYhiN9psufTaiUZwIZRv TWh8kL93EHXiuO2rhHVmNU kobrCyDbL3ILolQAWfCqT7 NYTvxZFaPWTeH4rmZKHdJQ ygMUDaNSfsdWDeJCX7kPqz p4U3jOQafGUjtDlsDuHkUn SaCGEPl7AwCQe4kHzdF5Np NNZySkT9sVIbCNHeZBsrXK BlSJOqjzD3eK58GWoqzuH4 wVYvm9Qka31xp548yT6usY PzXUG4IERqELSiaNNlEHSz VXG3FSSodHKzD6g2JcDszJ ZcT6Q1PmLbfRTrI0M5TpLd kEVoC2F3GnFpnQLrYKPwmF PbBh7nrKKcnVZwtr6jnv01 HLI3g5YjzUokBCP5IRF4Ec QbSv0xrAUwBNNbIHIdiCOw HUJnHG8vuOTuTOVdwY0acu xjXHBnYnJkcmhlYWRccGdi jnBsQn6omIpcBJA4SEpsG0 clxU9uUoH5XTklQ2kcpS3p SCe5DGjovSQ9XYZmeA2aMT 6fvkgxt2tdZeEoUK0pbmom h2jqIgIeTZ6ffbk6c9coRy SpED7qzogex0mpLfWfEMkj COZjcjnlCQPpv3IsgvpvGQ Nny9QxH6CnuXglG24thWgx B40kIBXqxQjvkA5hiMgkkT 5cZjBcZnMyNFxwYXJkXHBs YWluXGYxXGZzMjBcbGFuZz EwMzNcaGljaFxmMVxkYmNo WYOlEGluY4dbWvAkVzPuMW BBLiBSZWNlaXZlZCBpbiBm m2ZbPPeqntUbCWDbvOUvWN dpdGggdGhlIHBhdGllbnRc D7J3anDjGM6uAJWwYGEfC9 OqXTGoH44hDSTgkZ0nKCHy OI5vGREdf8JtuvIjvsflT1 5lm08rsM5hwOVtIJUcDUFs m08xqVZ4htQvMuCeQBUtJX RpRB3sSKKuneIcb4G7ERTj p3O6VPWsYXNwvGWlxwuxWZ 73YGnkTI80IWctOV9jQMXs VtDCfHSxz0LdC4hzPX1mqB Fbp2RbpPq8oKFdZCoeWUNx fN5sfA9kLXGaWOgpefHwvG luZSBCLiBSZWNlaXZlZCBp xkYxz0NiPJotzoFlOCUidC VkIHdpdGggdGhlIHBhdGll izXsG4R3viFwUT3fCVYdYC CcK1ZpWWRqP59fROBvqO4q PAJhKG3aAGEsiFblz2wyEG TcjT8tGXMonFzgEsCiqlSz L90zu0hheMUvv2RsOuGjtD PmXQDii3VqaRExOHTqhkxm b25dmLW4oKBkiZRjtwRtN7 xhVqBgmbMeqOgyTOWnd78r XC17GXxwBQ4wYYsoQH9bXW EbASStQSPsAOZ8RWBbLkK4 IDAuMiBjbSBhbmQgbWVhc3 DboQ8yAPAeQuU6IYYrUkI6 FIDnEqQhxMGvsrQzU2jwNE kdbOQxJLCwEBUbtGXwqI5z lrHanqVotIKybBP6EDOggB 2foF20ttSkogQHXX9rxXkw FKsltZ2tHHKdIJOlN0Pzpy EoTFtzCLTstg0woSabRVhm KiSrTPKge0t2yXD7oAOxwN F8gNGmaXbaRdQuMD1hmTSa BQ7wZJieCSuvnmFvl9QlFW 28xBShthDfizYpAuyey8Ja eSLxGeibRUCmDYNir85qzI L3suVeNlS9FSVeZOZebeEr LzF0DM0ejAucitOuf8B8MB Hkm7T6DRDoIN3xcU0oNKhx IHNpemUgZnJvbSAwLjMgeC XhHhSnsCVqMpGdM73prU6p UD45KNgzGU3qXRvtOO2kZM NtIGFuZCBtZWFzdXJpbmcg WQ1rRUnuWI28KUflIW0sNA FyOVfpZAQtJ5IcJ9Q5UZ3k VGhlIHNwZWNpbWVuIGlzIH G8De4mtCCoFJCvvmK3q2Qz CYfoBFHvXtitdE5iUFknct NjY1cJRXCuvy0= MICROSCOPIC DESCRIPTION c5ndgOOwBFKuuOJ5AbFiWZ (test code = 3371) Kna0rhu4NjrRIdyDYvWEjc bMCyidWtkw43wQB8qB52GP 7gVIFyTqE4IJWbzkA0Yqy1 OQMzBGMvyHWsJ749j7qpw8 layoMbjHK7fBjnCJVfcxfx YoB0UTguCJBvksxuJUq7BB nqAZWjiQU2OEGdnBVnX5Fk AOPpYM9opba9OCF4LKdmJV AlCoW6UKDgoJSdUAYabWui CGlqw665LKX9BjZhJIZqex OvxNjihC7mSmSdLYXDCMQd UR4hGGzqC0iyH1YxTDYbXF ttkFcde7hqBG2zIH4wvYcn pkNoE5cceTAquZZsdlKhDr nsQL5yEYSdwhaeECTgOe4n Ig4mt4fkhestbPHcfwVneY 5hfWXqhJY4zP6nVFSazaZa f1IpniKrNA5itRPbtUAiuX PpGHQ7e2VsRDSmIYCxrdRj IAayE65qrdA4CQiwPFMwAQ 1vEU8oVQwmwFteo9SxH0Ok ipCsdELkn15cJ4YlzLOshk EdtmAnw7RfkyLlxeVxu3N1 gW0eBXE7BZwgpa1eYIoxLR J9 [facility] [place] [id number] 18:24:44 Test Item Value Reference Range Interpretation Comments Case Report (test code Surgical Pathology = 104) Report Case: [id number] Authorizing Provider: Dewayne Wise MD Collected: 01/09/2022 11:31 AM Ordering Location: [facility] Endoscopy Received: 01/09/2022 03:51 PM Services Pathologist: Evelin Wharton MD Specimens: A) - Polyp, Colon - Right/Ascending, ascending colon polyp B) - Polyp, Colon - Sigmoid, sigmoid polyp C) - Biopsy, Gastric, random gastric bx DIAGNOSIS (test code = g1hzdAQlKZSul0bpWDGtcP 3220) FuZzEwMzNcZnRuYmpcdWMx IHtccnRmMVxlcGljOTYwMV rabsSpRQIimESgT0Gbqzwy VGbxWW3oZR6nyYnhhUKxbL LzSRXlJoZfs9myc630iCSz t9lqHOSOsarfzTd0cBtsT6 3gs0H5JcxpU20wbIIeSXB8 BEOrDSJjdNWiKZAoNKB7BU HbtUWhU6jiUGGoSQ6hsank PZdmSBgvIPWezJW4LAGwhQ ZxS6CfQTAbMCrpFIBnfhh9 FmFyGu5dyHSgmWowLQcgOD DnZADdZMcdZGRyEdMbCD5d G06JI09bYKYUZ9iLH9PQU0 LYNMrPMbzmPT7KUFMSR0YS IZv7DXBhpvu0QKKtEDDWOH FVOAFMPTIJTI0MEKHmdUKf UYHmitMDAwURL8yWYzcpH1 rPNS7CULzoVA1NHJNNU3LE DGb7PPPozvs8FTZqJFKUVK JVBLYIJZGNXZ4PZBKpBCPl whycMVTiLk1aB7YWCVCWJN lyJ2tOYAGPH1CpL1HKX5nW XNPELDGKET1SF4forCKsXA RhYiAtIFJFQUNUSVZFIEdB F4DXQ1OXRFiTBUKaubj2SO NrTWVGNEzDLMmERR5XH02R BUYAMVQBKO9HCLRWMUlAKP 9HSUMgQUxURVJBVElPTlxw MVQiyNPfDF8mEoIUYATYHd AfPj3QDVwRKSoKB9XZD2NN ElOXSETNG85PZ1XLTOHCWj CQQaJGX8ZUMJ8UJHDIASsD H8atGAZ5z9tcbQHlUWJnvX UxODAwMFxhbnNpXGRlZmxh hdkvAYUbBCG6puKjJMSaBM esLKGvHTrfPm1tmPDutTtk BbKzOWLax6lpufIMjbdavR s2s5cvROOuCyH5uDEsMLxi O3uatmLopQHdFAMnOTq2xK 08CCEfcD6xnXFvRSzwgqSw QdU4WUhnCDYtUqG5FKFzuH QxLRWlQ1vgFKQpSLbkHUCy ZJwteDPrULR9xCxpb3A3lT VzaGVldHtcZjBcZnMyMiBO a9KaYSa2uZkqV1SkKEJkLg D0qWRsFTOrVQthNXHkJHAr mgS9xR84SHzndfG6jFDxf0 Wcq19xo290lK6bgAKfDAO3 EXWoDFVrrRCbTQIdRNL9KV YazVYgN5voMPOrRT4bztgn QGouPGetHYTvpWC9IUIgyJ DcT2IlJHDfLZiiWIIphkl8 DcWsSf9aaSVbiSinUNxtv9 ckr4cdfKHbWfh7KMYjEaXk MnlxUQgoi7Jhj2vzNXLpdh 7vHWU8tXBpzWado0J0kYCu SJWivJQyVZEnDV2swMTxSZ MjmU1oflcpAUOnYgOqqbiu MZFouYrcchHlUy4inIavOC B9XClaM2lfgU9bOzE9TNnl M8drgW4cKPw4FRkeKVKynH P2goH3DJMnsKHiJ0DucQ7u KZIbAB5zhgo1z1gxQHH3GN olHIJgGyD5kfX0GZBaaOSq MHMbxLzqLDsgq608KIR7Np RgDVJbj7JeY6DsaItrY46t fDtbW57cLPFcrPetmN9kyX idsC6uPsLmKoBfIGxlqMkp LZ6zWYGlK6bqcTEaMNUqZD ScG9xzWxDwcJ4joKnjWHpj aoGaEKXwJck0QVEiqXJsMC SsQrt1AWEeROWqF58shdhk HFG2kJ9if7jto2KfARqeJZ S9WWBru34kCIfhbgF6XHrs Oa61HTpoDUP7CGreLFF8sE == CPT Code(s) (test code y9jdeDBsXLWoyON3ViXaXA = 3357) Wxi2foo9AupBFdeTEsFNzo pCOgfhWpou01kXW4tK36GG 0eXBEaEmQ5JVYrttM9Wfe7 HMYqLSOcnCWiZ853y2cqh3 bokuEvfHR0sNvvQPDagqql OvL7BAmxMDMiuvxaPHl6BD xlIDElmVW0OQWvoFQtI2Kn OUPhNV4byra3BAO5LKzqEC XhBvP3AGOtiDAdPQAafRvt NMack857VEK4GjXhTOUshi TooZwanT2eNpScXIQ6USWa NVgzXHBhcn0= CLINICAL HISTORY (test n1kcjOEbXWIqvUJ8DkYhIE code = 3356) Xao8thy9CxoYAgvENkWXty fXQjdqEsiu52oCQ0vF60YT 4kYGIxCgJ3QFOogkV4Wwe1 XPPxLYKbfXTfY191t6ier6 rdseLdvCD9eLjeFYVxbpby QrA5NHkwEDUuyxrcGYx7KX bnTPUjzCG6FPMguPKmN8Mx COMaMQ5ofov2EPL6KMhlQD ZgDnK4TTTgkNFkRQGhsVdf TTvcq081SBE1JeIdIERmwb OumCdsdM3jZfBrBSJZAKR9 ge3vw22yqAGeQBMzIUArWe p6aUAywKDkKZZiXQQtp3p6 jWBeXbZfo6fgftirPIG7 SPECIMEN SOURCE (test i8zfpPSiGHHumRE2TkMbMZ code = 3377) Lwd4rmo1KvkKLobLCbMFuc cFCaigTbax97kKV6pQ26PU 0zKMSeQbV4EWWpzuM0Dfh1 CAMjBDOrnGVvB832k6bvr5 kltcMbrJA0yWjlJRUtrpcs OlO7CZfbOWPsslmlKPr9SJ amWUUomCE1BYAfrYWuU6Uy VOPnFO4amqj0IOG6BJflWW DgZjW3WHSetGKaZEJozMkw GZgta786BHT6CyOdYMEpsa LyqKyfvQ1eWwDdEPZXXgKc KH3utLJkZEQmoZ0yRITlK8 n6W3QdD4WxYRiwT0fplZ1y WOGhLQKSf1l5gPpjO90nh8 6cw0yrsD1kNYwdwS4wDKEg SNRYvU4dt6xkXBswb0TdkY MsIHJhbmRvbVxwYXJ9 GROSS DESCRIPTION (test q7lohFOpJUPfvYOuFnTuNE code = 3366) SoOPUij9wmPUYkwQDdQaSz MzNcZnRuYmpcdWMxXGRlZm Svz2dgp558oXPrc2gtFUBF qjilkHu6e9vjNIYdQsT6vE EoGLcmS9lpbpJdjYQqBWMg XMt4bK20FQMdiR7cfDKnPO sbtuJfPrU4VIslNKMrTgS2 AWMpxCNhQVBuR8apAHIfES wnOMRsIZjtcESqSKM7mFma d9W2gISjjCJxfUqlRkPbMn NuBUEUw7VoKBr1kKyyT2Ze DKJmUhQ2fUAgDALwYXiwAH GzZUYmctV7jG59QSevovC7 aOXpm3Jxk69nw395rK1nzN HkQAN7CLJrOCUkkZKsUBNb QJV1NMCgqGBaZ7u0ZfZdnV YpD5N5RqFytEWfQ6U4HfKq cOYnD5W2JlQxfLWkNMAhfH VcSv4ceCTcbIEubx6pks07 JGC9d2PotWyzARN5ERF3Bu MhSy8nwLIsUBIxEPYrkRJz IZHeBG9izJOlZTOqrA3tvw xjXHBnYnJkcmhlYWRccGdi qkItCw3bxRluDER0YSvlF7 uofC3tKiD0KMhhM8eopI3y EPc3TWmexIS1GLYcdQ6aVF 7butaya6vbQnPbYL6ckega e9scQlRpYB3tlmq3v3xwFl BbJZ2mjvrft0trNdRjZLfq BUOgaowkBXKwz0RkgmkoRM Lux4YdI7BovUszL80wvHjn S16jEWZtfVitrS5gqBjwlC 5cZjBcZnMyNFxwYXJkXHBs YWluXGYxXGZzMjBcbGFuZz EwMzNcaGljaFxmMVxkYmNo VFUiKDdyY0lfEjUaHqLyRM BBLiBSZWNlaXZlZCBpbiBm g9LnCVoctmGuFHMylZVnUZ dpdGggdGhlIHBhdGllbnRc T9R6drYnJM4hSUGaKAYdR1 QzLTAnW93jVBJjlY6kQLQg BK6eDGMqu1LhmhEczbnxD1 3fz36ziD0oqQTjMULcBNTx v82qgTZ1zkWyVoXgWCNtWQ KoRC7cYREabtHye2Q4DYWi q1H6SCYqPJMeaRBetwjxXI 96DWoqXS07MZobAC3zGFUe VrEAfIVho1VoF6yjHC2ibC Yec2JqiId6uRKpTEtbMUMr yY0hvH5nDILoNOnfocKkcV luZSBCLiBSZWNlaXZlZCBp hjScv8HrZGjhabJmZFJvjD VkIHdpdGggdGhlIHBhdGll laLvB7F9shJtCF2kWOBfBL NvL9VzBFFiM25vTEXpcY9f UXMdUZ2yKVWntTxhz1hnYR RxqZ2kVCCwqFhkZsAjgoGf P33gs9ijeOLxf9WhQwQeeC YqERBta2YacLIlJKBobdcr n36agOW5qMDfoBBcrgWvB7 gxZyFunqEojZbkTPQvw57h TS47IFohFH6jWXoiXO0vCM XkSUCvZLErVVR6ZPNfDvS4 IDAuMiBjbSBhbmQgbWVhc3 VcmR3tNHRuPsP8UOFhAlE8 RPOaGcBevZXaumJvS3czPB yajWJcPYVhPEWjfTLgnU6y ccInkiPbdLTtrJC8QMVjxR 0kwU59wiGfinWADL5spKsy OTzlyW7dYNWoYNVdO5Iogc JeRKuwBAOjzi1ftFijWVsm RfXhVVNrw5b8sPE0wZHnoL X6oNDguHbbHqGaMT3txJPt JF4xNVjnFRkjfpGfu8AzVC 40xGCdapYgiwBhSiice2Ed bPWhEhrcOXJuNMWqy83kyH F3keQhInI7DTKcJXKfcfZy XeZ5WA1mhOnarjYov5C2SK Wsa2S5GNOiEU2pgO1jZDsq IHNpemUgZnJvbSAwLjMgeC EeJnPjyVYfGnZpI91keQ8w OM79EXtlRS8nOEwxNN8aEM NtIGFuZCBtZWFzdXJpbmcg GJ6fHRmtXB93HXbtKV3sRQ DoRQgmFZWlQ8AvW8M9YD5z VGhlIHNwZWNpbWVuIGlzIH R9Hx2qrXAoABWlcnD8u0Uy KDpcYBGpFfexyL4mHYqvvv RwZ3pETBRwcm8= MICROSCOPIC DESCRIPTION v6tayCEoWRAvvCR7GcBaXX (test code = 3371) Zfq0bjj9IndIYwrPArEOhb rMEtgrKzow66qUH8bS38JS 8gHKPyUnU4VSXdneG5Yas8 DWRlAYZyxIAqK012z2xtk7 ronaAyfEO3zTroYGFhlgly ZtH4YNfmHRSvehllXYz8ZF mbQOBobQY3EWZpoAMeK8Ga DPFrWW1ljvy3DHK2ZOkvNA IbUuN3QJFrdZBiPPGhgMbf GJnzk279XVZ0UyEgEBVpzs RksOazqK6lDxYiBWIBCFQx RX6bHQbiG0oyO1GpHCTwCU sxvMgka6ybKX9zZP4akPdi kiHmK2epxVNypWUcujDiIo ojJU8qDLLqdzgmCUFoRa4m Ta8qz9kmjdnxaTJpwbIigM 9kvSGroFM6uJ3nAAMsmsOe v6XqqnPrEO8qyOFjxEVtqF AwACC1q5ZbGXHoBVWainSd LTtaE03csdB8TErtVKFsQC 3tFL5lUMyksSstq8AoB3Le fsYfsTZvq95zV1RhbCNkij JyrmLag6WrhzHvpzQal8O3 yA3oOKF6UQmntx6aELsuHL J9 [facility] [place] [id number] 18:24:44 Test Item Value Reference Range Interpretation Comments Case Report (test code Surgical Pathology = 104) Report Case: [id number] Authorizing Provider: Dewayne Wise MD Collected: 01/09/2022 11:31 AM Ordering Location: [facility] Endoscopy Received: 01/09/2022 03:51 PM Services Pathologist: Evelin Wharton MD Specimens: A) - Polyp, Colon - Right/Ascending, ascending colon polyp B) - Polyp, Colon - Sigmoid, sigmoid polyp C) - Biopsy, Gastric, random gastric bx DIAGNOSIS (test code = i9vagDYmHUYmx3wdGGHaaV 3220) FuZzEwMzNcZnRuYmpcdWMx IHtccnRmMVxlcGljOTYwMV azpaTaFHRksQXkM5Blfljb MDweSL3uXC8leHlqoGBykG AwVRElZgRnk2jkq286iANa o3auVBJIwdgstSa0yTajQ2 2rz9W4RdrwD81fyZOrEUQ4 LWKsXICisGCnFVViGTG9AX AteWKkM0icHMGnWQ8hfjkx IXwjZRnbNZFehBH7CDShuE WyS8ScUKOwFZgfHVCqwwp9 BvUjRy2fnPWmcFgoOWeoEU RrCBEiGPdeGVYsMuIpYG1c C81PG29wVUEBP7jFP9ILE6 CAAFySHbwrYN9OSLAXD2MC EDj5YNTuafl9NTJqJMZXAS JXZGBSHZLQEL9YODAihDPo HYXgkfGSVxIOR1qSUcghV0 kPBD8YEJlvQB2JOMKLM3SY ZDy9MWQjoit8FWNkYVGQOL BBQVLWUGPNON3MBZCaWAVi tpnsNXDiYk0sS7THIEZHIY soA5rMEQNIR7CbA0BBU4oS SWTDXCJKNF7MO3cqwTHfKU RhYiAtIFJFQUNUSVZFIEdB G3QQZ6LIUEhHQIWvsje4DX UpUKTVCGdBCTgUIG5PK93W OTQJNBFEDO4LAHDSFBeUSG 9HSUMgQUxURVJBVElPTlxw CQFpbGMnFG0qBaLYZYLJKa RnRi2MHOjJWVkTF5NFQ8PM KkULPECWP00ZX4NGXOVKBb GXFpJRH6TNWF4RPAQLAGmC X6vqDZV6f5mooKIrQPHwgO UxODAwMFxhbnNpXGRlZmxh jmuxDWXrCHZ7kiDbAAZoTE adGBNcADzeEn8erOIxsTmc UzJuYWVdd1nxpfWRnzzadQ l6v4yjAOVrLhB2qVQwQJoj G5orhpSkbPWiCLUcEVd1mW 08GFQobI0tgNQdLMmgtqCo VkW9JBebFTLlYaW6OMTmhU NrEIAbP9cvGRGmYMgqSSGd LPeoyHGtWOR2bOlnn8T8sI VzaGVldHtcZjBcZnMyMiBO h1SkUPv3mChcL9KnANIoId D2wLDoULQxBMwgOQShYGJp fsX1kZ81FGxeejL9uDJbd0 Fjn68pg501fK9hnTMvXCT0 CWFdVOVsyECmYLYgTDG6DG JrvMZzM8yxAIUyXR7nfzhj VUiaFYfdICLqaPA5ZKEicS RqE3PdZBHnUNpvGLIhqrk9 YcUcIg5enCRewOyjUEhac2 mjt0gdaHOaGty9FJJnJgKr OlqwCJprv0Kms9ftLTTgpt 5cHJN7jKSasCfnj0Q9bJIf JBBznOSxDLWzBJ2qqUGuHO BarG0kfxslSQNnKcSadtag FTSbaIwxwoKqAb8ebMhgGX U2YDdjN9tlkJ1eTyG4CCdr P0lsqG5wHRk2BHyuITLveJ O7xsX5HXCayOXiO2AlrZ5p BNWoQI5ogwz2p2ajFNK8KC vpFYBdPaK3fkH5GCYsbPJd ODVybRdsZNdzj779SSE0Ow IiQZLmr1LeK4WajBtwP50h bJlsI88pBTLuiMlcvA8hqM sjaA9xPmJaRqXoMIvdxCgd CL5iKMOqF8nxwDJhSCElMH WnX2lbJwQknA6xdUlnVEgm rfJwRRXxOso4VWBvaEHqPT NkDqu7JRYlARZzT20xjqiq FLX2dR5fw2orp6ZuWSsfBD H0STZhe72fPUhxtbP3FJtb Jm83FKyjBBX9QPdrEZI4cV == CPT Code(s) (test code e6tbjGZgSZQfgHL9CfUwWE = 3357) Kdq1zhl6BbhOUvmLKdFWqh qZAqsoKjtd50yUZ2pT19WR 7wLAFbFeU4QRSopoC7Ros9 ARTxDEKvsEJeL246l0tvh6 wvfhLfmJM4dTlnKJEjdull OiC0OSdzHQCgqgpoQMr2WC uhFDYwsXC9YNNjgNJzY7Lr VCIyQQ4arzs9FBX6VVkeTP OjApJ4LSQosNJfSLQhxPgx VMmds166UOA8GzJiWPLfwf LkhZpgfJ3uUtSpCIJ1EXSd NVgzXHBhcn0= CLINICAL HISTORY (test i7uxhMPcOHLajHK9KrRdFC code = 3356) Ecf2nzu5BrsCZkiSWwYOkb bWGvxbOmrk81bQW2qE43KJ 8jQTHlNlK5JDBludW8Nmk5 HBEgYFZhvYXfL104z0ayk6 hndmFkxGZ4nNkzNYSdtyqo SaN8ZAgdKWHciemhBZx7ZN czOGBifDM0HQQatMFzW0Un DOIfFQ1nmmv2AHD8LYulEY XaHnB4SKRroCKuOQQjhWfa JSjwr831ILA6CiFfFPQzgc NbcXuotD5rOgUkRYKLLQD9 xz7id57syWChDJWcAODgAv f1vSVxgFZmHJNjYUTxs8v9 dYSnKqTrl3zbsmytLNU5 SPECIMEN SOURCE (test p7ehzSTeVRThbBN9SpBtFM code = 3377) Bgb0jqi5OgrJLosKSpLTte bTYafwRntk84wRB0eG96VE 2fUIDyJcE7HXJqusP1Zmv6 POPmTSYdtWUwI197u8ffv7 vnjsWkyAX6kMivCPUcjkfw LqB1CXnmLDGxhqbhIRr8GP esAQTbsFC1IUArnNXcM0Ce QERzUO9ogoy1JPT4HYnjLP ByUmY8TZHerQAkOUMsmFma KFgpv818BAS5YnRaLZOlpo NfjQhimR4mUcGxNOCYXkNb KE6orPFoOHOwgW4hTFCdX6 i0S9ZzH0IgGOoiH3cwbX3p NXJlBFYYb2i4bLngH61aq0 7rt8qknW0zACxupL9xZTMh ZUNRdI1la3ypRDybf6YqhI MsIHJhbmRvbVxwYXJ9 GROSS DESCRIPTION (test t4dalCLaCVZhdUChClIrEQ code = 3366) JnYYPjk7sqDLVpeQZzBeBj MzNcZnRuYmpcdWMxXGRlZm Bdh3joe557xJOeh3kvNPYE akbfcZz7g8nuJNMcGgV5uZ KwREthN2oehaAfoNLwECTq BHh8sF92XBXpgA6qtLVqBU crnkVzMrA3ZSdnTTTgBbM4 TMRqpCOxUWWpR8cpHITtCF qxLLKlVMzmqAQhPUB5yNgu x6G6jXHazBVeqSryHpIuPk VtKTXSx1JpEKv2sLaeD1Va PTUaMzL6pKIoIUOqBNlcDA CiICAhebY1hI12ISlbbxU3 wVAma4Trm49bk472aE7iuB AeBEJ6DVPcCBIsqHWlOKCm WEV7HAYdyZRnR4g6ErYpfP FaW8S3PlYqxUPqF5E1FgRh aPHwN7H4JxDwqGXnFJCauW ZeBg3wfZZmfMKlin3ebe18 EIP3n4UgpAbjEND4DBJ9Al WvFy8yvGHhHOSrZDVahNMr XUXaDD1glLHpHQIcfU1imv xjXHBnYnJkcmhlYWRccGdi yeBtVa7lnPgqSVM4DMdxW1 vcjE6eJiT3HYgqU1tliG7p DTb9OMqsjKX5FSOzlQ4rNO 6lyzgus4vwEoUiOU1guaaj q4sgSgLjAQ8ayxd2f8mtYb XbWK9dewhjd3elItTxFGgv GRLycrnuGEWun5GextxhZU Vvr3DcM0OvjFetY89fhYrk Y15bNVDkjKufjY3nwGtjpO 5cZjBcZnMyNFxwYXJkXHBs YWluXGYxXGZzMjBcbGFuZz EwMzNcaGljaFxmMVxkYmNo LSHnXYeuV2ckIkRgFgYzEW BBLiBSZWNlaXZlZCBpbiBm b5HpTCuaobBiNCDujZWkMI dpdGggdGhlIHBhdGllbnRc S3F7pwEuAH4fNXQgZAEcX0 XjRNKmC17sNVHvcH2wIWBa QH2aTMHut2VgieUreunbG9 1iy53cfT2thFKsRHLpGSXs g32ilPJ8enJiCwYaQBMvND TdLT8fIQXxmxAcy5E3IPGm l1N9HLWpSFHqmRNylxoxOU 07LFuxDT65EJpkIF0wLFEo UnKWcGJho1PjL8hgAR1vbA Sjx4CukQw4oQZmZOaiXHHh rZ0zgV2gWBInDXvbqzQtlX luZSBCLiBSZWNlaXZlZCBp sqHwf2EoLVcbntVxSOQlsZ VkIHdpdGggdGhlIHBhdGll eaEkD9G1zjTlSD3tNGXnJA RtJ5OwFMGuI33iVBKzrV3m JEBfTG8qGCOcwLrpq1ipTG PghJ4fZNRppOcrDkNpbyAp Y47mf2kyuVLip8DhRdYahV SlFXPee2BpoUXjEFUhsgfs h49tjTI6qGSmiFBzwfXfI6 wfCgLeczAukDhtYRRwi84s OZ59UBjwOQ2fBMghVS2bHK BtDMAvWEUiIFF6OHNjErE5 IDAuMiBjbSBhbmQgbWVhc3 CqdX4dNOGjCnS9NIIgJrH0 SEImZySeaQPhhzIoF4kzCP vmjDNzPFLwQYBrnOIlkX8x fgAdfvWdhJIekHY7XRNoeX 9cwS84qhYqxsQJFG0mzQts NAhpkT9fBCIdIPObS0Tdij PfCNduZDAogq6qnXafZWrp XkHiHYBcv4q1lFF2qAMspO Y6jRQdrXzmWjDrJZ0onBQr LH4lQEcrXCimoeLwg2OpLE 57kSZttoPhknGdXxgxh6Zo kREtCkitAGTiBVZhi25xhX H6kzWfQfX4GFFySWIpogOm NxU7BA5liSznxnQuj5L7YT Iue0O4HFIlBS0pmK9tTHxa IHNpemUgZnJvbSAwLjMgeC XkJtPkuMFtFpTtC24mmH0z TI74UYklZB3zQHrmXW0aBP NtIGFuZCBtZWFzdXJpbmcg ZT2hDBthUV60ZBhkKJ8zWM EfEQrvJGNyW4SaG9K3EV3d VGhlIHNwZWNpbWVuIGlzIH F7Rb9wpMFcSRGspzI2k4Ut RRnhDFCwLtiizL2dBIomqu SgG0yQKKYakp1= MICROSCOPIC DESCRIPTION x4gjdZHfCKCtnNO3BwMkTN (test code = 3371) Tsn4vgg7DudQOcsTVgRVgl tAPvuaOuwc36nTD6qS92BQ 6rSAThGxX2WBShveZ5Mrj6 JAWaNRNdfLEpI897n1bib9 vvlhAoyUW5fItfIVPjkenk WuN9ZQzfSLXztqadAOa0JV wwUICvgPC7TQKviRAvK6Rz TAEiGK9fzhd5KYW7MFgcAV IeNqG8DHJjtQGtEKEdyPqu WXsll439QEL4WjIvHURvss VtuOodlF3lYoOdHIOXVMXs LE2ySZeaM0gjL9PcHZLpKM vwvEehv5dpYY2eGH7jtIhc ugIxN0xenYGsfQFqsgWuJy bvCG9fKFMkiqdwIHUePw3e Bl4mu9ulyologXGdkcLasG 9riWZuqTE0bO9bESVcpfCd s9XfwhNyRR5hsXXsoQGtaO DjGLZ7i3KuHFJkWIJxhzQn MIoxP07bgiZ8ZCjwQBHaIN 7lHG7cHSvbtIldf6CkK8Sf voAocZFii58iB0EqrFTluy AsvnKst0GwkaIdfnPzn4Z4 oT3eLMB7WJzuhp8aKJkrSS J9 [id number]:24:44 Test Item Value Reference Range Interpretation Comments Case Report (test code Surgical Pathology = 104) Report Case: [id number] Authorizing Provider: Dewayne Wise MD Collected: 01/09/2022 11:31 AM Ordering Location: [facility] Endoscopy Received: 01/09/2022 03:51 PM Services Pathologist: Evelin Wharton MD Specimens: A) - Polyp, Colon - Right/Ascending, ascending colon polyp B) - Polyp, Colon - Sigmoid, sigmoid polyp C) - Biopsy, Gastric, random gastric bx DIAGNOSIS (test code = a8awwWGhLWXkc4boAULbgT 3220) FuZzEwMzNcZnRuYmpcdWMx IHtccnRmMVxlcGljOTYwMV zjenNvUXMruPDcY2Qfvgkq EGpvDJ2cFR1htRimsWUwjC SyZEWfIvDqp8njr761vBLu z9daDEGKuvlbsUq5kEgvR4 9qu0V9NfeqF82nhSByZWZ7 QPTrAXXorZOeJLJhNME3LO QjxOAyW5heDNPkFH6vjcqh UUnnFMsuZHVuqVX3VRVebN EkV0SgKETgWPsgEFQfnil3 LaOvGu2yoSDvjBtuYZmlZZ PiEWCsVHibZUPjGpVdXC8g N18TZ51wJRTQX3tZT8SDE5 EPKObFHailDG2YPDIKT6OZ CNu9IAOlxfg2IIBoXNCWMD DEWUOLRFWVDO1ZWWTsdSXf IMVpfgYYHvJQQ4hBFezkF2 jORQ8ODQxwUA8ORRMHO7OO BJk0OABzttg1XEOyUCZEBB CIIDAXXRTWAC6QVDOhVGSe yqyxHJEwBh1dC8YIUAPTWI cbL3xGAEWTE5RvM4NGC3nB AQYVXDKAPL0BI6xtzTSlLU RhYiAtIFJFQUNUSVZFIEdB D2LTA7AWLQjWPMOzegi9NY KiPJSSGSgTOVuSHF3RP64G PIPGTHONNY2PHLBFUEnHKJ 9HSUMgQUxURVJBVElPTlxw RAUvaCKmMH8pEaVUDGOKKq HvVv5WAEvBGGwHD2JKE8HA RlCPGWULG21WJ2YCHEJEFy BKTzDAB3AAOH9MJIINJCrQ G0aeKCG8v7tuvDJvEFQslI UxODAwMFxhbnNpXGRlZmxh chmcHHNgUKS7nuQrWCNoSO whMIRoBClhZu3fsCFpcFqi VtXsISCvy8fzitQBywfmtN g8n9wpYKBdWeE6bTQhHWrh N9mrboCexFSjITSrPLb3qK 19QAWpkY4cfFRgUUxrbgNq RiG2YJvjYTWvVuA8NWQdiU WcZBOlM9hdUQAiNQigUYQl TXmciQPvAVQ3tCiti0F6aT VzaGVldHtcZjBcZnMyMiBO s8BlLIy7eJjhM6EyOJPpQn N6bASyNHWxKTuxUNWlMOTp lvI7bW18CHnqcoL6dWJhu6 Npt08st561wB1jeXOmRHO6 VYZbNNEpgAQjSNTeUWU0YP KpaPTdI4haOXKzJW1omist AWciBGxsAVSarEJ2VLUcnF XzP1UhWJXjYZpwSMWzhay4 SfLgAh7lsTZlyZpcOVuoq5 iou5kxtSFlEyx7RMSpOsRy MxtaIKzdw6Nqs4rpNRZijb 3mOLL8hYJwpRsqs1X4wHTy YAUkpJOkEYFjWG5hdCCjNC OazE5zyvxfKZIcHbAcgauz SLWszEcgrnBbAo5xkSojEN R1TLmsT0ophN4aJkZ2ZXup H5iuzL6vBBf2YLgzNQHtfQ X2wiA7XVQbuQAuG1AmuH2e DWYyYV4imoj8u8fnLDK2HL wvVGKsEmL9icF9EHAuwVWj RZXkzHisBXkpz145OMM6Bz DlZECcv6ZlD2EejTmpG98o iYpaH62gMYTtcQscuK8yxB ewqM6bNiGzLyOrKLrdkRqp ND3lBBXsY0ucnTVrRGNfPL EiW7huNjUtgM2qyYijVCea hwVsSMPpDmo1BPQknXWvPA ZfObi2HCUlDUDiL18egawg VST0zR9no2ktq1QsCApyEB I4AWEtt44mYHbvcfJ9MZhi By58EPyqGEP4RAbtGZS3aZ == CPT Code(s) (test code n0ftgLJdHMBddFM4AzTkYT = 3357) Qvh2hcb1NzoQQwjTWvSZqd wXMzayGfcc48tWM5gG37AW 7uMJRlQkK6AABritU6Xyl1 TMYwILLtrXBhJ153u9jnv1 qijqHquAE9fXlfDBDdqmxm PmM9UQedUUQxjgbcLIc6NJ xkCQMqaSI1CYHfkLOgA1Yx IRNfFL0wgkq6ZFR6GKsrWN AkWaN7KBKfhTTiPMMmnFql TXnat159LIQ0BuUzNLBrde SytOolpS0rPcEqKIC3SNIo NVgzXHBhcn0= CLINICAL HISTORY (test h1aysGAjNGSwrXZ7NqFsVF code = 3356) Omf1krb8NewPPwyKFcPDhr hYCtepBtnc78uIN7rG47AQ 6dAEJsSmB7EJOzhnO5Ukz4 WFPxRJFthMUqJ892e6qja7 zixxScxIN4fVqoNCAgwgpf OwT0JJmmHMNkfmefUFs1YN ehRJYitCD1OQWizQVlD1Nt NNOtBI0umdg1WOQ7CQrrCW GpHyE4XURrnDHqULWpwFwo OJwcc352KBB6VbCoCTXoyq GupAwvcH8qVyLjGRGVJAE5 tm8if85bpFVoJTJaRSUsOj q4yBCwtUScGLPkBVBiy0z4 gUEyBaRwb1vcqcwrGYN8 SPECIMEN SOURCE (test p9fhoITaPSKuoBQ9YeGsAA code = 3377) Kuz6wlf2VvoOUdcXBxHZwi rLHmqgYgyl99rKC8eT44IK 2yENQyAaK7ANDqycZ9Nqi4 YRDvZSKihUUoC276k3fhz9 szvfKrmJA3eGkvAPCgajsn WiI5CQguPAWgxkwdIXb4HC zbPVEexCN6FRIbeBAgO1Kj NFNoCB8upqo9NDH7KRduCV UzXoR2IDYpnOMaIERwpQnl IHbtn456ZWX2JiGnEWZdvx OcfCkivC0jUoEtZNAQPqBa NZ6xrHCrNWCifL4fXRBaS8 r0G9ZpN6RvKZpvM8csvT1i HBFbPEBKs4y1nLlkW03vl2 5xo1nbmV6cCAqnmH9uOJXw WCWLsQ3hj7bvXJdno2ZhhH MsIHJhbmRvbVxwYXJ9 GROSS DESCRIPTION (test d7husVYfLXTkwWYlBwQzEL code = 3366) BnCYYey9cxNMUldFQkCyYg MzNcZnRuYmpcdWMxXGRlZm Qyn7nmo318qJVrr1xmVMPI dwpoqVm5r8dwAKJuSmX5hZ WsNEebA7dihwZqwFKaXTBf OWd0jJ97NSJyfB3riOSlYT mwjbGuWaI5UTczQKEjIrV1 FRYizIQtCWXeD8puSNPmLY vwAHNbUNpcwFHdCNE4iPnf e9H9mRQclUUxeIaoBpNxOg DxYGKRl6UqEAt6sGhxO0Jb FWJcKiC5kLGeUVKbITmwNM FvWZSsagZ3oZ24BEsdcyF7 aEQol4Irk22sf527zI3hjY PtAKR7QJFdHQWgxXHyCJHa BJH7DVPhjKGoR0y8UxJweI XtJ9W9InUccKSpB4G7ViHx gXCzK8Q0VyWhgUQqXECiaY SdCr8eoYBvrYUgdb7alo21 BPX8e5BpxZcvYOG4XYV5Lh BdBe7ckOVbNTRkDBIvoOLe SGBiUX9hpMDiZRYgoH2fee xjXHBnYnJkcmhlYWRccGdi ztEsJx0dlMydNSP9NJwiN3 kczW4dXdD2AFijG0gqjP9h KKl4LDzidHY6CRYjdR1eDA 9uhxiha8bpReStRA0ezeiy u1pbBfMuOF2zwlr6u6yvXh LrLT4aoexrr4aySmMeYVcx TFQzjcbkWSOly7PwizmaPB Lxv6WmA3JyhEqsH61xlWli H03oUDHqfIyjjQ2mdEygyP 5cZjBcZnMyNFxwYXJkXHBs YWluXGYxXGZzMjBcbGFuZz EwMzNcaGljaFxmMVxkYmNo HKUrMXytV2pkGjZdAtYwGI BBLiBSZWNlaXZlZCBpbiBm b2TuUIobzoZxRTKsfCUpSE dpdGggdGhlIHBhdGllbnRc F7C8icAeWF3qPXHmUNOoR5 TwVERoC08iZMCfxS5kAQBy WA2kUVMks0BwyjYsntomT8 7id50igJ5lqJWpWHMiWUGw k04zmUG0seCuEaMsONGcQB EjDY8rPAOghwTri5P7YBVz o3L3YHHxGTRqeCCtbflyNT 60GAalNK98TBhjAC2uJRYn BuOAwUFbx2MmM5mvDK3yzB Hml3UwqHf8sAXgBXneEYTq uU2koH8mKIKbHCafdqPhrX luZSBCLiBSZWNlaXZlZCBp dcSaa0MmEPvcfaIdMPLguA VkIHdpdGggdGhlIHBhdGll lhOaZ0F0huFrAI5qFOPbXE NzR0QrINQrW93iYEXyuL8y FQCyUF7yPEGceRdfp8ppRM CbkY8gFGKbqMgnPqJoejDa E29os2ywfWWkm4MsSnJfkE NdZZBry5NspJXtPHTfsmkn k65kjSU9vDKtdJSfijXpC1 lgUtLmcuTdbKtfROJgf93j AX74RGjrOH7aMNalHU8kNG FuDVBpYNCoQAP1XAMnGkD8 IDAuMiBjbSBhbmQgbWVhc3 CndO8gMPIjWfK9FODnFzT7 SOStMtJjoBNabiCnH0phTF ghaXIdLHPdRIUyfJJugE0t ymOrwzXpeDYytQT8NTCcdD 0rwS73isXmfmKBLI4xdVgg JJxzqV4zBKPiEIPyM8Tbhm ZySQchRJOzoy4khOjfRQva TgNuAQLpo9u0zAF3nJZreA D4kMKusNaiKtTiRB1doJSj BM7iMCmzBByqncZoz0VwZI 12xMQshsUouaLsZowsx0Yk yEPvNtiyKQWjOSGyg52ocI B2csEeIuV4IDTfKAMsnuSr KbY9ZP6crQjqjrHvw8B7WS Bti5K0DOReGZ6wrE9hIRsv IHNpemUgZnJvbSAwLjMgeC NwVeGtfHRgZpFzJ23grX5x JX75ZHafWR7jQZfaET1oPY NtIGFuZCBtZWFzdXJpbmcg XW5uVLjmQM79DJkyRM4bYE IsLGgjQNQmO6JnT5U9RU5z VGhlIHNwZWNpbWVuIGlzIH G3Hw9sdAToUUQpyhI9o6Sz VNivFEAvRswicT4pLOkxcp SqJ2jIFTPibt3= MICROSCOPIC DESCRIPTION l6gqrXOqOSXfhJQ5VwWeWB (test code = 3371) Hwd8ruc9TkpBEnbDNxLOdf xEMjygSfwq35uWX3jF91GJ 0wMIIdQsS5ACFxrdC9Jvu6 RZNvZHJxrDHlB393e5pum6 uqtmPvaSV0qPikUIYbbsyq RoX4TUsoFZYeumzkJXw5ZO gaLBQysDF8DZGifWBiL5Nt CJFvBO7ppqi7APW7XMsyQB LnWkB7WDGaiELsTGWgrXnq XScvf018IAP5OlPtAFJhdp BctDuavQ8lHhBxOFIBRBEh WS8uQOfbD0bhK6AqGZFpQP hycNjlo4muGO3dAK0uwJmm vnHgO6kyuGEndERquzEzDc zpSN6sCIMribgxSYAdNb6y Pd3mw9gzxgoygRFdoxWmgX 8ziIXmpZO6lH4lADJyzwFu k8FdanRmJS8sqQJpiGAvpH UfRTS3c1QyOFQnSZInukVn STjhL85uigF2GLzhOPOnGB 1vOT6zJZqllZphy5FuK3Mi grKlnKZfg52sQ7PjgVMbfd ZoheJqa4TjqvJrsiKqs9B6 zK2xZHD6UAmzvq4pSFyzJW J9 [facility] [id number] 18:24:44 Test Item Value Reference Range Interpretation Comments Case Report (test code Surgical Pathology = 104) Report Case: [id number] Authorizing Provider: Dewayne Wise MD Collected: 01/09/2022 11:31 AM Ordering Location: [facility] Endoscopy Received: 01/09/2022 03:51 PM Services Pathologist: Evelin Wharton MD Specimens: A) - Polyp, Colon - Right/Ascending, ascending colon polyp B) - Polyp, Colon - Sigmoid, sigmoid polyp C) - Biopsy, Gastric, random gastric bx DIAGNOSIS (test code = [id number] 3220) FuZzEwMzNcZnRuYmpcdWMx IHtccnRmMVxlcGljOTYwMV nhofGaNWKnoMWfA1Clvngw DPgvFB4iUD3ifKnpnOMtfZ ZcLUKgPbFgf9lpk739hGTk l8ybBFVQentppDm7yRgeZ1 6ln6P2QoojA69yoRKkEAV9 LOUxAXBozIIoFVKrWYW0JL RdcRHoH5ouZQHbUD3iajzh TFwrQPkmJWKtlNX1HMDnyY QxQ6OeSCDaTIdkSFWnika8 UsMyTu5sxMStxOxnAYamAJ EpOZKvHQlrOCRfWrOvUX2n E93WO36mNYXWV5jWT4AJK0 VIPFpQOpwfFT1VSZXLU2GV IRp0UXBiyov6ITHiFGOFHB ZBBXACUETFTX4YCFKboGBz SOQktbDTJuWOX4dFBsqqS4 sMXB1TWSvcFG8FPYNLH1MT BNx4JHWgwul7DVYzZMESEU OIQUJELLDUOA2ECNCnOXHa vjwiKUWmMr4zA9QBLALJVL ruM5aYILKSY0AkB1YNE9tR LHTTCNVCPT9JD8mqlGZkWP RhYiAtIFJFQUNUSVZFIEdB B0MEP4ERGOkUGNMbwcj7LO JjRLBTXKhVPUtGBM0RL65O XDMASAUKOP0XLKHGDPzZPD 9HSUMgQUxURVJBVElPTlxw WKToqQVfDS0jVzTGUXOBUu RjYs3VZGrJQHvZA1SEV4JI ClXSYWFOY90VL1YQAUJURn FQVqUED3RCON0FSDSTARzM A4dmWNI6l0pfcSKlRTZewT UxODAwMFxhbnNpXGRlZmxh ybriFMOdXQD5uxQiQRGjEK soOGHaRNtbTz7qxNKnpRfi WcExLGXgb1gzwiVQlbwydC x4c1hgGBLjYnY5cREvROtm V2apvvBocRSxQSQhTXs9cK 76SCLtgT5ucWNtRHuvkqYn IeX1RPteFRYdAtH8KTSwmA WlOESbV6wcIGDrSRdhVHOl XIozxRWyTJP2aYvkj5Z4oQ VzaGVldHtcZjBcZnMyMiBO b5NiWYq1vCduS5GrRTWjZf Y0qYDsDRSbGPrvQSKtQGSc zbP6sX84UZxdyjP8dEGel7 Dnx22yt933vG8fzIQnCDG8 YGTiRSVxfIBjKFZsRQH5MO PadHDqK8jyICGhVC1suznq DNwzTYwaDILafUE6YFBopX GmB0MvSHSoMSdhKBBjafu1 UtPmPd2bcDAhwNszHPuyh7 pce4ktbFRqHsm9QGSnWlEq GmdaJGtnr6Fip9ldCTGcac 7eFQT1nQTnxStji7Q0dPSv SQEhnTPmORLlKN0jhQTnWI LqkL2lyjzzUUWcCgGbsbpj BPClnHnfvgTcLj4ztSllOU B6JOgfZ2yibW6oHwV5VFgw B5sfrQ1kOFw1GWrjKFIebA O4raB8SDVixPMyL8WtfA3b KRIoSU0bryp3b3tmVMZ1EQ qcEHOwYyP7oeB4RQSywVXk TLBkpUnoWEyay421AEF8Qy ZkWIYns0KnH1UkkHnjW09i tWerX46gVIGrgBcpmC4frI zwgN6mQrQmMeXxJAgieDkb UG0oMUOwB3rtnOWlDPXsFW SjV5ldXlHcoK5ryGvtQSpg qaKzPCGsOrm9MKMzrONhMN VaGgj9QPXxXGOfZ83ktsth XEB3bQ4id8rkd5OkKAmlAB J4EBWqk22bNEhaktX2AHil Qk15VIabKIZ6NOhvWIJ0gU == CPT Code(s) (test code f5wjwSJmIPEnmIW8CeFbHR = 2497) Bsk0jrv2ZnkCUydYSdWUis kXDcukUavh66bGV1eA09KO 4yKDYzSwL6CRTcauY2Pdd5 NKTqZOBduGVyY864i6jfh6 dzpvHhzMB7eNxzRWNtzlod FwG0GEskNWZmxsdpEFy9IF giOKWamKB3PKJkiPIzH9Oj IAZgOB5tlfm0BLJ7HHhpIT FjZzB4CJWlcPPpBVEyoTjr TUvwq225TMR3HuAnZNHqwk OdpIsroK9wOdVbGFO7TKUu NVgzXHBhcn0= CLINICAL HISTORY (test g5tiiSPbEKKqiSU6YqSoSJ code = 3356) Sjq9ilv7SvbNOmrLCxDBkb jVRlzmXgix81wKR3oH05XB 6sTAAwAoU7FEZyjuQ5Lgf4 OMJcSKWizNOxJ906c3mid4 xqmxFwbNU1qSmsEKAhgkzg BcO0UChxOQCqpoerISd8VE jqEWCvkSY8YNYwaAAmX8Cl XIEyWC5ownd4UWC1ZVhgGI RlEiC4FZWlqZFtTEBplNfg LZcyj705DQR5TyBaCLCcot HokCbbxO8pZaRuIUGAGDO0 es6ex73rbATxJUUjJODyDj n9tKEnmVBjTBIwSPOvc2v5 qNLkAhBss3qfsengGLJ2 SPECIMEN SOURCE (test w7lkzPRsKMAtlFL2ZjFgPU code = 3377) Keo9cvu8ObbUOvvMVfYRkl bUZhjbAnvy46cPO8xM89KY 6lZXIgRcO6KDRoovR5Fak5 FUQnHIQwyZUlC093o8kdo9 mehdRymHY6uJhhVJEknrpt IxW7AChgQPAshoadPCx6ND tbRNSftUI1UJFkhDVzY3Wd MEQwEI0ashe1NWC4MPgaDL XdTuU7GARozQWeFUZwlRzt TVuwb624SMY8YrYqEIWgqx YzgCuqxM5zEmLfRPFJVpMh SA3utBSyWZBotE1uQQTtR4 z8Y5MjR6NoZXekG1bwuI1s UJXzRKRXp6r9gXmxA40ty3 5nz3yncF3xDOgybO1pFGFx YGZZdV9fq0qqFJbzr1IgaP MsIHJhbmRvbVxwYXJ9 GROSS DESCRIPTION (test b5ordMAlFGKmqRLrYpQiSF code = 3366) WcRZCgb0xaWLDrtISmIuGt MzNcZnRuYmpcdWMxXGRlZm Uzl9tql566hGMmz7usHKAO rfrhtPp2k1evLRSyRlD3hC UrKBkeT0yglnBofRQjRTRl WBw6pX18PYKwkS6nmKOwFG uudiBtNqO4UAgkIOFaEoR5 TGEbrOSxQGZbD8ftMQHoOJ xqHGQeXGhflKEbXLO5iRom t2J3jYAibTPmcAlrDrYzXe JsXTKSe8OaVRq6tSovP1Bt TEUxOsE8bJHiBQNmZTyhAZ NpLMUlhqW9yA87PKtadqR6 kHCmp0Eev49ps635mQ5dxE KbKIB4HKZlRFNqsUFwIRBa SGH9ULCojRJcS1g6ZmBxcX RuU1K8IkSfdRTmS9H1GdZf fKDxW2H2RaDygRNsZJRlyD CiCt1gtWIpnIAidy2dth04 DYO1q2YoiWcaRRU1JPA7Pj QiVo6daWKuJIXxBFKofJHi THRoZV4gnLVcUVEprQ2lpl xjXHBnYnJkcmhlYWRccGdi ztCxLn7rfPsoOKG4JQfoQ3 jdmU2mZgN9XQomI3ktwQ8l XMe7JBkmyJS3PYMziV9pXB 9hhiunu2tuVwYqJN5cnfhb o3rkXjMqFW5wawq7m0tiOf UoDH3bzhadq6wuBrXmEOon NOAxxgfkPRKkk1JsltfrEA Uqc4MsZ6TgyVtwI37ibZfe W76oRZAggDexvX5owIwomZ 5cZjBcZnMyNFxwYXJkXHBs YWluXGYxXGZzMjBcbGFuZz EwMzNcaGljaFxmMVxkYmNo KPQjUDsdC1yyTeUrJfYfUY BBLiBSZWNlaXZlZCBpbiBm j9LzVItoyvZaZWYhiAVpUE dpdGggdGhlIHBhdGllbnRc Y7I3zgGxSE3oEKGfDYYbV8 PaVURoN05hLWNlfN3lPCNd ZY9wTPAun1MwvzRzbclyS5 0ls76lbG7vjUPnEJJsWUNl d21mpYK7noMiWaJzUXHwSZ ClNU0pSYConcKav0C8CBZe a2N1JNNyEICdlQZjeyvqMJ 94XMpeXC01QBhaTP5zTEDr LvMLuDCzg0EdW4mfKJ9urE Fpt5NaqJn0hCZpEWylUKVi tU9bwT6uQRAxTZhrwoJzmH luZSBCLiBSZWNlaXZlZCBp coVbn8UdCAjuyeDqAZIewR VkIHdpdGggdGhlIHBhdGll kkNdG3A0ebHmNZ4qGTYwOV TwN7YiEMTzB61fQFMivI2v SZUpXA0uZBHpoZcfw9izOP KksL1vIRSohDitFvQzbnIy E05cp0xdzAEpw8NbCcXazC SeGLYsd7VwtSPpZCXsxwtn v69tlNN9iEDmbIAziwNdG6 cvDnQqasMigQjfCQGaj06l CU29PAekKG3aOUyhDA6aOF GhRRUmHCYeXDO4TAAbYeJ9 IDAuMiBjbSBhbmQgbWVhc3 JboZ5qDHZqMbU4RCLyByD9 CUVaMjInuDVddsMqB1cpOQ kogYRnKOEjIQOkpSKxfW5t grKotjLpmAAmdZD0LNOcaC 3teC88daVnfwTEBV3reOqg VBuxjT4rIOApUBUeA6Mlfz McRPzdMUJski7glJtuFJsr EpJhBIVrx8e7oVS8yLPoyW S3cTFnoJieEjSrBM8hlACn LQ7mSOwhJKgsmxYpf8IlXJ 37rEDtsgFujuCsYpomk4Ui iOOyUpekSACeXSJre24gjE T0xiEvNsG4NQZiNRKjstNr NqS0KE0ewHbgdmKis5W7DP Lqu0P9QETlBT4mbZ9wDUnn IHNpemUgZnJvbSAwLjMgeC StJgFbdPRwPcWsB90qcH3o NF81MPcdEC6rRTdtBH0iPY NtIGFuZCBtZWFzdXJpbmcg KM4tYLygOT47AJdzLZ0xYP OnIWdpPXVsQ3DmC5B8XX6k VGhlIHNwZWNpbWVuIGlzIH K0Rz2suAKeDMKtobY9t5Te INxqIREdYvdlwT2cCPivfe ChU3sEPNRyfn1= MICROSCOPIC DESCRIPTION v5nwpWQcUDWtiDC0CoXcZE (test code = 3371) Upn9ytm5AsfZQohESxXEpr bMIpmbOpke82qRJ5qL23IP 1tQNViXhB4MZUbncC8Pzy8 WRYnGTPtuVWgX403b8ngb3 ftphDvgGI4zSxmQMOtirmy GtM8VKbcCOHdwvxrZCt0TQ jcZOGokQU0UREpwYIcZ4Ik RLHjEW2gfea6CPB3IUvbNK IqTpR7YHMdbEFmBVIlpQmq WNlsf338FMO6RhMtLRWwaf CgkVewhC2mJxZwPZIIYWJt FM5sIQdeQ5vsR9UgICHrOS yinUrkh0oeNN0lQS4dzKtp myGyF6inyEFxiNEoeyArAx csGW3qOMRsctcjVROpXq0v Ps4og2qbhyxvgGAmhmRhwJ 6viWUvcPO8dW7gOZYliwLx c7PvaeOaVD6cnZXzgUXwxI NoULZ0v2QzKETtWWWdmuTc JRmeC82lqkH8ODdxGWHxPC 9oXF7fXXjqeTohe3ZjP7Yp ixLmhRJnf08aK8LggFIqvx MhslIwp6DivbKxogOmz5M4 pG2zVSL8NHqsnk8rQKfcXT J9 [facility]issue [id number] 18:24:44 Test Item Value Reference Range Interpretation Comments Case Report (test code Surgical Pathology = 104) Report Case: [id number] Authorizing Provider: Dewayne Wise MD Collected: 01/09/2022 11:31 AM Ordering Location: [facility] Endoscopy Received: 01/09/2022 03:51 PM Services Pathologist: Evelin Wharton MD Specimens: A) - Polyp, Colon - Right/Ascending, ascending colon polyp B) - Polyp, Colon - Sigmoid, sigmoid polyp C) - Biopsy, Gastric, random gastric bx DIAGNOSIS (test code = [id number] 3220) FuZzEwMzNcZnRuYmpcdWMx IHtccnRmMVxlcGljOTYwMV dewjXfBJFmlEQhA6Rlthwj EEdqZZ8fUU6yaCoibKXioI FrOWHfEbBuo6jws191mBCo l1yyDHYDmzpbwPa0bCktM5 7ub3W5JfgcG89qaNPdLJY2 AYLrIIJugXXcCIMxZJM1ZP EiiRGzR6zzSJItNI6xhqvk LTsiHOlcLTRxcMC8HLIiiM YzO8QiOCJiYZofGBGjbbt8 DdHwOv4qhLAnjJjxAZwpYR HrPZPvCSveMPVxLxCpQU1p A09KM91dFWMXH8gTG4AKW2 IEMZiXFvsiHW3MARDYV7FV VDe6PJEthbx3GBRqAMNWPK BNVHMOZOISHQ0EHOJueWXx RWMlzhQRPrQKT8pGFhunU5 hLCX1YJObiTU1HDSIMU5YR CNz1SYSogtb5KWHsJSLFTY JBNIVVDBPUJU3JXDFgFIJy umlwLVJwTi6eR9CTBVIXZY upT7aXUKOCH4PnU8NGF2uN PDRWLJUPZF5ZH7lgrUFnOJ RhYiAtIFJFQUNUSVZFIEdB T2DFN4GVHWfTWLKvbas0DP RkHKHIUUjPSMuMFO3JL45N SSLXZANUUC6OAKUFCIiIQZ 9HSUMgQUxURVJBVElPTlxw JSOejDNcKQ7xElNGWGNXTd UpQx8IPCmZNOtWJ0JCY4AG OoERVHOER03IZ7VDKSWEXf CGDsPVF1PTRB6QGCDQCNvS O0utZRW5u6xoeHIyPEWwqJ UxODAwMFxhbnNpXGRlZmxh fvgeWHVaHJX1awObTQPdHS umUWBmFCbuXk1kcZNsjJfv LkOmBRQce9wunwYBckcqzM e9q1gxMXTrCdD7cXXuLSoe S7wnalJtfMCtMVGgUEn3dC 48PLNqvI1txRAkRKvroyLo XjX9EKnxEQOtQxI7DKXiqN IfZUMeM8lnLHUiUKqfLOMo KNbwsCFlRDU1oDoio6O0pA VzaGVldHtcZjBcZnMyMiBO p7ZaWTj1bUluY7HfVBImNo H1dMHfCZZtUZagLAEwASHl muI7sB64FRuzvgB3iKPin3 Vjh31zo322lQ9ukIZyPRD9 JOOyRGNqpUYtMAMbULI1QW XarXPzF1eqPIHaGM9lwajb LNvuBDinGJNnvYA6MXBvzM AgW1AcQSZyJCbnRFOgbaz6 WiSsIy9xfVWnzIriNAdjk7 ent7uanNOlRwc1BNVwHnDv LzobCFspq9Lcj1gtKPTgdj 6jGYV5zMExdInoi6E5nCYi ZKLnpDCrKPMhWL4jrRMlMU KbrX9vbyzcXMPhMbAcwpjr OHSpzTiizvSbCj3vhFcfSC P6RQiqH1tnsP5bCmJ4IRkj W5gkxT7oOBx0JHfaWABxfI C3ykR3QHNyvJPsZ7FfsH6w OQXcKM5fewz8a1bmDPY3JH vgWOQwDfB3ijO8UVMxeRMr SOFdrRrnEPvyi023KAX6Aq DgDVIkf2ThR1PitSmnJ26w kPngZ42sRVAitUcfoL7byD spfN7mLpHhYsTrJDzixQop LR6uEZVrZ3fmxBFxRLMxAZ EaY2rbEwAiiB1fiFjyEKzn qlErSZLhAmc9QMRoeXRrZZ NmXac4URSiLIEbI08ufwea XYX4bO4cz4uso7PfLTbsFC T8BYFei99jQDkxdhF6ZCnd Dr83HFrpENA5YXpkJBZ9uC == CPT Code(s) (test code w5sqpPXaSVFmtLM1FbFdAD = 3357) Gpg8ass1DaiJGnkFYgWSkl wWIletTehm99wWL9sB93TY 1nNXLeBrO6OERmapY5Byo2 FTXoSSQllGSqG061m8xvw3 pdrpOqdWQ1dItkDORhirqs FsX3CHiwIMRsnyhmDKu7FI meNXBalWZ7HFVbcLQiC1Hu JVBcQV2ybfu1VRW4BTmmCG VoIxW0DOSxwIYhWLZmyXiq AVfqw405ACX3YhSjRNAkas RbnHulmS9gYbWuFVT2NTYb NVgzXHBhcn0= CLINICAL HISTORY (test y2gmiGTsVVWymCI2NsKiTO code = 3356) Nsb3dij4LofBFvjOOqVMrb pTMjtaWkox93vOY4sH37HZ 1fGXNjRgI5FOHysrN4Aqt5 XJLtAVNymWYcJ849d7bar2 ibsmRznGI8pRnbXNTyowpe EnL3ISbcDUNayoawYIf4FU ojWISpmBN9TPZkaQAgK5Kd UFOuSV4hizt7OJQ5MEteTX PmYgP6XTEasFPkSBMamBbb HHfxa502LLJ1MyEgXAHtst RjsBhexB7dGfFbLGQEERB4 bd2kn07geURbCWRgFCEsYy b4aNDsnYJsNYFtEUIea0a8 cSRzGqUqq6ztfqowEKG9 SPECIMEN SOURCE (test e4tleETiEQGdrUV0ZtQlFS code = 3377) Uti7nqm8LnnFBscXJnTOrq lGLvwoPeui16eTQ2vS97SJ 7pCLFyJsH5LWDdboJ2Jqs1 WJHgGXZfvERrL079h8xnz8 gmprSttVJ0pRhaTPUkrbzv WyS9IMpdMVGzgtcyADs4PI ciVKEydZC6VTBofRPbV0Dk HSSjOS6hqhf8RKY7FDxrJQ OxPhY4UKQoxJBnUSHefPzz ZKiuu227HRA5QsLjCYPrbm KozUcfmW5gScXySXIFFxWn LO3wpNWoFYViuM1zMZHpJ7 i5N0ShZ8IjPVezD2sayS9p VOEgTIZXp1b9vVbkE41en7 1jr5zqaD9aGBfqcZ5vFODe QBEPsO6et5woQLyqf1UmxW MsIHJhbmRvbVxwYXJ9 GROSS DESCRIPTION (test x4gjeTNhFZDlhTWvWaFtCV code = 3366) UwBAKvm6qhJNRbbCBjIvDx MzNcZnRuYmpcdWMxXGRlZm Chd1kpk068hYWsu1mjAGAE lziwjBm4f5jtAQAsQuB3vY YhINqoK8qaywWikCSfPGAu MEu6sK43QGIvaK3ivDJzDT rhejZgSdY8PKskCUJfRkJ4 BCRhvVShOWJxL2vxGSRwJM opRPZzZRftvPSnUYN8nIgf q2Z5nGPaiQIosTdyUwBoMl FwEAGLu4EoRFm9wFctT9Hb DBLgNdL3gMZqDRMtCXmmCZ YdWEIalnK7oO98WLzbebR6 kYVre7Fiq71rg420kM8xkA ZhHWS7YDYaPWTtmQDtNERw FVF2EWFyuQAxM3i7LaPqhZ QmL9C1UlLvdRNkO1X2AlGj wHBuQ2J3RiPshWMrTAYclO PvNj4mwXCrfHLitx4fym03 SCR7o6WunHvoSLR6HLZ6Or AhBd3awPMlNLDuKIPtiPIj MYDhPS8emFXbRGJweH6rwj xjXHBnYnJkcmhlYWRccGdi ndHzBb1tuDzwBZG5MOikC8 nhiV7aLfE8AYgcU9cyzP3y YVe2FKpjqTG5GMIyyT3wJA 7hzzooe4ppKmByWD5lzmsv d1aiEuUiAX2jtia6i2osJy GjTG5cjmgkr4xcKeNqJMhm OEJdbzdxRDJvd8DhkvcuBY Xry9EvO0EioSefF29utIqt S39hFGSvpThegL5puVnmfS 5cZjBcZnMyNFxwYXJkXHBs YWluXGYxXGZzMjBcbGFuZz EwMzNcaGljaFxmMVxkYmNo ZHIyIKzeO2pzGlVzYgUpHU BBLiBSZWNlaXZlZCBpbiBm q3UiFPfgaiApGNZpgDHnGU dpdGggdGhlIHBhdGllbnRc F0X7koAjWD9aBESlPEAjS9 PnGBGwP67fNRRwpI1fGCZy MI2xKHRhc4QthzEtndhxL8 8vt50qbJ6alTKvCIOkNTMn l35qzIE2ehUhYrNsKSKaEN HvNA4hCDJglmJfj5E5HMGw e0P7TGNiBLOkdRNrjxgmGR 01FEtkKF89SWgfSJ0dQOKk TgWKdYVjn6XuE7ihKP1ilG Xpe9RfsMv7gIWzIJlnYNOe xX5clT9oUZLdSReulwHqhV luZSBCLiBSZWNlaXZlZCBp pkGnr2GnMOzgmhNeXRIdsM VkIHdpdGggdGhlIHBhdGll iuByH9G0zcEnHD4vFKGtUE LkM2ItTNTnJ40pFVOdtO7n SWKuSM6nCRVesOuqy7gmZX UweI2aUSRnvFdaFgJiaeWp K07hw1zqpRJnl9UhJzIybQ MoLEHww6NqyBBpSPDcrdfi t76jtTN4tMOvwTViqjRnF4 zrPlAtruNofQxvXQRwn56s GR70MYvjIT8nECmwAR7qWE NdKBKgQWVlBEQ3PLTmTqO8 IDAuMiBjbSBhbmQgbWVhc3 IlfY8vVSWhGqV4UGRjMrA6 MOHwZzWboRIojsLvL0tzKG tqjSQsARRwDNArlWGfgH0f amUynyMwjWZfiGU6VUJhiR 0shS64kpWansOBBQ1ccPik XOsfeB0yNRGdNMQoI1Zetb HuZQteLJWkat0orSspAAbe EuJmEFVon7g2hVK0hABieV U0aYVotXxgGpHdGR8ewPOp KR5fKVzjYBukitKlm9MnVM 75nFWrnrDswzCaEhdfb5Uz yLIwRrxiDFNoKGVdd67zkZ R7mvVhErF6ZAEtKJUcvyCf IsM2KL3mjNowawAbm9Y9CM Ydw6G2YTJeLT8ftB3wJNgn IHNpemUgZnJvbSAwLjMgeC JmGcDwgZLxFrXyZ80loB7m YV36SFdoSG2yLOnmBI9pPM NtIGFuZCBtZWFzdXJpbmcg RG4mLLmcJH46DPyrFV2lAV CwVCcxSPNpO1FzE7G2GU7i VGhlIHNwZWNpbWVuIGlzIH Z3Mp9bvSGxBGOzlyM3h1Yd KSvwXHDjIjfkyE9cODonmd ApF5cOJHWwxx1= MICROSCOPIC DESCRIPTION c8musTMbNTUbsVM5AhFfOG (test code = 3371) Zcn9def5UcmVRgzYWxOHep eMOqgdYotf35aQW7wK51FX 0bHVRlFnT4VNUrwgS3Slg4 QMWxCCMeaTDfP459y4hvf0 umiaMypFH8zDsbFMBhqarc IqS1OWsrOCHnkghfZRz5UL lgTERgtYM8NBCqbNFaT6Ll FRReYX6zxgv6MTG4GVfmDH YlIoM4MNFhaKAiYXShhXgc IKnti920YWR2AhPuOUVucw XopXvsjU1lYfRhXUCMPOWw LR1sQCzyS8qcA3LzHHAfJN rtnImds5fsPS1bGA0vvLkg rkJnY8xxoDNvfJVmtqTgAr piTR2yGCTzcummYSRuQe3m Mh0sk5fudyjrxNMonsBlsK 1pgUYeoGF6cM4bULKjvePk k1YprdLkPV1yuXQzqNZowZ OaCLV2q2FvDSMsRQLpqtBu XQthB50ovcG7WKdeLVReLN 6jYW1qWUhpeVlar4ZhP3Xv fgLirEFkf44cT6ZxjYSwnd RjfhFzc7GydiSutjXmj2K3 cS0dBIU2EPckqi1qXBykZN J9 [facility] Center[facility] [id number] 18:24:44 Test Item Value Reference Range Interpretation Comments Case Report (test code Surgical Pathology = 104) Report Case: [id number] Authorizing Provider: Dewayne Wise MD Collected: 01/09/2022 11:31 AM Ordering Location: [facility] Endoscopy Received: 01/09/2022 03:51 PM Services Pathologist: Evelin Wharton MD Specimens: A) - Polyp, Colon - Right/Ascending, ascending colon polyp B) - Polyp, Colon - Sigmoid, sigmoid polyp C) - Biopsy, Gastric, random gastric bx DIAGNOSIS (test code = [id number] 3220) FuZzEwMzNcZnRuYmpcdWMx IHtccnRmMVxlcGljOTYwMV yccuKtPBBlhFIrQ5Yuehic MAvnLF0hJW1kzAlaoXIciE MbYQLuWnPvc1gqs856xYJl l2veDXVEpzlnjBq0oUjsS2 0gr3Y7IactH53mxYCeIVI2 IKGpDXCpnJWqSMUkKGR2LI VslQNnH8ztZDXbLK1dyneg IHeqWNwlQPYmgNX3IEDkoO ZjV4QrLKLhMPvoFUQgipc4 GrKbBg2snYPvrBuvHTixLP ThAZSsABefLFJiJdAtVX3z B29LN93gKWGXB6lAT6MKD2 GRKHcGBwdpTU2FHIVLW5KA WIu7EEXvwhj3TFWmNZWISO FVSTCAVCDHCO0BXNLatDRh PQBjolKQJaWHP1mTZcfeO8 oAMF7LCYcqZQ0XPAVFS5FV ZPn2GWOmhse1CBLeDRPEBG PWQOMBQHLQTV4GVGEzOAZz ruoySNFeQa7wD2VSATNKMT bgN2oZKEIXD7IlR5GXM0cR XHVHYNLLUU2JA8hrdFSaCF RhYiAtIFJFQUNUSVZFIEdB B8NFQ5BAGQjBLKDysud8PY JtGDFBJNrIOZcLAC3MA13I PAQCFSNCRB6KAKBDVCeVDG 9HSUMgQUxURVJBVElPTlxw RMRsaGLbAJ3gSiVTKHUZLw WgTv8KEDhYMQuUL0FHC0AH CiJTZMSZH12BO2TDSNEGMt MXYuRZI9WEZR9NLAMQEDaZ D0ygVKJ7b3jswIRqZZUksG UxODAwMFxhbnNpXGRlZmxh obvbQKFpXOH0mrYcMBQlUE uvFYHsRKvtFm3nfLKbeGcx HmLaTGSxv3kmzcNQyhqaxK t3g5xuCOOrMmD5wEYwXDca H1otpaEsxQUzIKBdYEn0tS 82ZZPjtF3yjHSmVLlhtfJk GaT9XQunHRHjSwY6SAAjjM LdJVPhG2zxPCTkFWafKHAr RAtmtFGzKBK6mNouf3G9wR VzaGVldHtcZjBcZnMyMiBO b2XrLMh2xQocV5GfELTyIi X9eHVaGOWlHSjpHOImWKUp yeI6vY20MBamdwR6eERne0 Zib05sb185yB6kzIVnMZK3 JXMrYCBzpCDqOZGsVAM9BE GfaUPzN0ezQEZmAA9efqsb LKroYPudOSAspSM6OOVkbO XnW2AwSDDoFOdvUPYlzud3 IsHzOf3uqAJbeEjdJDnyy4 ptk7scpPPwHkm9DUWbTfMj EkvkKPtef2Bnt8jnGWXjqh 4bESO7nQIfrZdqq1T1eDSm VWMbhWZkWFAyHS8gfGVkGY BgfA0vekbiKGGjPcZiosrj IGEnpAlvsdKoNn8mlHexCM H7COjdH9dnkT5hVxI7KSdw C2nwwC6hFKv4SJloOIGahZ K7dtO9ITXrvZSpM6QpoR0o XHZcSQ6vkws2j7moGOE8EK gfJWZsGuK8hdO6BSGlyRDt WLClwYkjTSwym234CQT2Lx GbFPZjl1RuN5FkcLujR47e gVrwZ74jMPMotNakbQ4ycW qnfZ1mWxGyLsRrUVsnmHkl EI6iTYKcG5tyvLNtSRRrLI FiT9pxXeNgbE8nxRicPAcd hpVoYGVcQdh3SQXqcCPgHC KqLxy2KALeOBNaU68nmpqn BTH3mG8tf5nht8XpNOfcNN P2ZBOzv82zNXyogrG9RXgo Ye05FDbiKYK1MLnhMPJ2fK == CPT Code(s) (test code w3bbwDFwUZYtsRK7ByBsVH = 3357) Yau2sln6EnmOIwrNDpHExi lTGwueAjfj02iVK4jS27MQ 1xOQRdFlL0FDXkkzN8Gel1 PJZsNXGphPLpL881q5lnx5 xjceLkjFC6mNuiWMUpvmtx AuQ2KUmbAKUwnjcnHAc9XD laLMYuhAC5HHUmrPMhU3Oj DRRgYJ0smre0ZNU3BWovIA HlQdF7FNRstVQkZLRgfWee DPgsd401QQB0WeRrGSKwwc YovYbumS7cBuUcYFH0RYIj NVgzXHBhcn0= CLINICAL HISTORY (test v9hnzHUnMMErvTH1OhImVI code = 3356) Wlr7gxq4ZuyHTlhKWeWXxx cKAovhZkug81fDU7rC04BJ 8qJMPxNxD6RSBeazP8Mnb5 KGQzPNZufNJrV953w2tva1 aacbRzzCS4mSmeFNPpviav ZbR9KBxyKQZnkcvrWUx8XW mdTZMmtBX1KCIyqTUyI1Nh DLKgOG0zjnl3WOI3AYcaYL HfKvB9SLWkgVXqVDFvqMnt WYzrw351ODW4XzBuPWCrsa LkyAngpC3bIlWsILNNFEQ7 bt3xq56oqKLzBQLvQGSqDj t6rKGqrBPbKTHeKBCkf9w1 pWIlCaRnf3seqvkcLQZ5 SPECIMEN SOURCE (test n6bnxHEdWJJcoNY4GuYzKF code = 3377) Fym5zqv8ZdoEJvjYFiOUib rHJbaqHlrv66mAI8tL19SZ 1tKKAlVmT7OFWrpcV6Hvx8 JYFwAJWhxDPbT930i5rqn4 mjgyOraRO9oAbiOFErxktq GrW7CVdoNCAbhjozSOo5WZ npCXXagCS9CKQbbRDvL9Jx YEKaFM8lzib0QDD1KZpmBS RiCmI3NUXzkIZmGAXlcFdw BOnuo404TTO8MvExUKAohc ExtQlnpS8lHpCeKRIRYwXo KW5enWJtDQZufD4lFPIfB8 o3O9XmD8MeRUieA7amzF1e VKWqXOUUy7x8vJeqP99jd3 4zu0mfmS0pCVrvqE5gBXTw FLROtW5pu6lyGRvsb4DseC MsIHJhbmRvbVxwYXJ9 GROSS DESCRIPTION (test x8vqiCRgKXGopJGoPuRsLM code = 3366) GuXOAvc4cvUTIboPFkJuQl MzNcZnRuYmpcdWMxXGRlZm Sze7nra217tFGwo8ifSWDE hgjopVw6v4znIUJdLsW6vS KiGExmF2wkkaBzdGWfUSWz MQy2rO02YRBsrR1igRJuVI joqlUmSuL9VScmYFZsIdA2 TCPvpQKhWUHyU3xiCXWjHH tbUUKrDWrdaXIqKPZ3gJun r3B9aWWdyYRhkCxtQfHeOm UhTLRTu4UpZYx5kAdmN8No TUVqInB6cNLqUBAsXTbjDC TuXPBphrI7uH10HLquxiW3 dXEaq2Wtj72sy107mY4tmM XhZZN0XIGcVWFmrHPkSTRf XPN8IFXrkVVaK9a0DuXksV DvY4N3PxAvoSYuL3T9ZlZv dLYaN8I3SnIdmIZjSDSboO BqMc3ijVPpkWAhlj2lhf87 KOG1q3PxxVnqBDM6GUV7Pa TdWh3nyURyZKEqXFRjlIAn KIIpHD9jyWDnOEXadL8ajv xjXHBnYnJkcmhlYWRccGdi kbNaBc5lyKeyBRB6HLujG5 jalX0mGgX0PRkjT6puyB9p ZMa6RSskqYH2IXKojQ7nRE 8fciqmz4txLlByJP8quirk d0nlVkGyZR9nubi7a5yaZn CeGO5oyltcm6xmQsXfSTiu CTHoruwkLKFkz6MuggcfLT Nxr1MaD2DepLtaK62ldWwn A19gGYMrtIgntN9juAddsX 5cZjBcZnMyNFxwYXJkXHBs YWluXGYxXGZzMjBcbGFuZz EwMzNcaGljaFxmMVxkYmNo UDNvWAqkO6rzAeKsKbJgXX BBLiBSZWNlaXZlZCBpbiBm l9UsBSpklaKhYQIfcDJtTU dpdGggdGhlIHBhdGllbnRc F3Z1iuCfVH8hCRLpOUVdQ1 UdDIRcZ69uYIWhkY9nWLZx BD8aZEQft6LtjsEqczfsB0 0qt31nuJ0gsQUxQJDeZUHc q41zcMP5mdRoKhDjEDNaVL FdSN0jNCBwzkBrr0T0OQGv o3X0CYDeVDGicSZdhbstQP 17SFyqUV70KDplOL3kTUPj QhYLeWEhe3BkU2toHQ3trL Sem8UhdYv9sKLmFCbiJVLn lV0geI3aCEOyRWnxriFxlL luZSBCLiBSZWNlaXZlZCBp aaNbo7YaKGnpeoJuAUKzqS VkIHdpdGggdGhlIHBhdGll zxDyR7J7ovZdVM5wASLeIH KkJ5TfVVOxE45eROPznY0j WHVxAC1pYBSauItjy0kyAH ZfpP1zPQZpsXpcVjGwcrJm P27jb8dinQLwo9HaEbCjyC TxXJQhr2SumJFgZMHinost a77nwAA8lXRscEUazhBuT6 onLwEvomGcwNrmMZHrx91m EV44HGqgUO6qOPvzAH3zDL NyBPWvPSVyHAG7IZBtNbH9 IDAuMiBjbSBhbmQgbWVhc3 VjnU8jBLBbKlH4VAQcOpO1 JWQjXjDghAKurwSmI7nbRI aekCWpISMdRHNksNEijF0q riDfzvJvyARhrQS6JUZkcD 5yjD31dbFfhjZYOA2lvNki OPwnmJ2wOIEdUMGvM9Hmyv UxPDknVCZyep5wiFsmWOtj LzIkCWAel6l6nXN8lUDeuL G5gZPppTrpAuInVF2zbGCs DG4oSSxrUYrllcImr2XsAY 03zGRjimVaadHhCwkjl2Nu eILdAcwpVEFxQDRgm28mwK J3xePqTjR6SXThMRMjkqHk DsH6WC7gyFkfavKbp5U3PY Nur6J0KNPeJO6aaZ3wNMlj IHNpemUgZnJvbSAwLjMgeC EvIfRibZIgRaFaB84vtB3w ZH87BCclVD7wRRdcSR3rNT NtIGFuZCBtZWFzdXJpbmcg BJ4tSEppNG75VBqyRK1qSU YuYNdjSJAtL5DmM2X4EL2c VGhlIHNwZWNpbWVuIGlzIH Q9Oe5kzEWwIZXafuB5u6Mt GGbcFZLaIuoavY9cGRszox IxG7gREBGgad3= MICROSCOPIC DESCRIPTION w7xmeRLxSOEqrAE8KmCxKA (test code = 3371) Ilm9fbf8WuwKKbcEYiGTix vEKnrrToxz78wEE9xN24LV 3iFXVkGyG8OXOqgzV7Log9 VXOyKXZcgLXgP300e1xjh8 zmfqVluMP7lJadKNFvarsp OhR7FXwzGDWuvbbmGBr8CX feAVSckQZ0APBebXPwS2Cq VBYxLG8ouib1HPM1YUboNR XsMeW0LOEzhGHtSROjxDjx QWkhf616PEQ2HrEmXOUktj WkgIkjwC5tRrYlUJDDUZUk ZZ2vYSjoW1moG7CrRTUeRL ajrKxie8zuWL1iEJ8jlTse cjTgX1exrFLieHVswyMgHg obZS5lPLLfmjcnTPIkDq5d Hn1ia5cyoklxvWDmhcHvcH 4xaAOxbSR1aX9dTVSwilWs h5EomkNvOF7qjBBylSJxsV ZdVJH1j3TxQWZsWDMmtqZs QImfU93tkrL5AHjdCHHxBJ 3cRK9sPZvcxYwkc7SqB9Ax ptEjhEKss72wG5VjgIBwgc FswhJbd2ZeqvUpaeXav9N8 nA7gJRX5FFthjq3tOYpuYF J9 [facility] [id number] 18:24:44Surgical Pathology Report Case: [id number] Authorizing Provider: Dewayne Wise MD Collected: 01/09/2022 11:31 AM Ordering Location: [facility] Endoscopy Received: 01/09/2022 03:51 PM Services [...] ROUTINE STAINS Signing Pathologist Direct Phone Line: [phone] signed by Evelin Wharton MD on 01/12/2022 at 6:24 [id number] ref lux disease, polyp of colonA. Polyp, [...] Helicobacter microorganisms are seen on routine stains.POC-Glucose [id number] 13:54:18 Test Item Value Reference Range Interpretation Comments POC-Glucose Meter (test 133 mg/dL 70-110 H : TE STED AT [facility] code = 1538) [address] [place] [address], [facility] 30: Career Manager/Techni miguelina ID = [id number] for Marybel Earl Lab Interpretation (test Abnormal code = 22909-0) [facility]-Glucose [id number] 13:54:18 Test Item Value Reference Range Interpretation Comments POC-Glucose Meter (test 133 mg/dL 70-110 H : TE STED AT [facility] code = 1538) [address] [place] [address], [address] 30: Career Manager/Techni miguelina ID = [id number] for Shaye Earluja Lab Interpretation (test Abnormal code = 24163-8) [facility] [id number] 13:54:18 Test Item Value Reference Range Interpretation Comments POC-Glucose Meter (test 133 mg/dL 70-110 H : TE STED AT [facility] code = 1538) [address] [place] [address], [address] 30: Career Manager/Techni miguelina ID = [id number] for Rajat, Marybel Lab Interpretation (test Abnormal code = 62051-3) [facility] [id number] 13:54:18 Test Item Value Reference Range Interpretation Comments POC-Glucose Meter (test 133 mg/dL 70-110 H : TE STED AT [facility] code = 1538) [address] [facility], [address] 30: Career Manager/Techni miguelina ID = [id number] for Rajat, Marybel Lab Interpretation (test Abnormal code = 20988-2) [facility] [id number] 13:54:18 Test Item Value Reference Range Interpretation Comments POC-Glucose Meter (test 133 mg/dL 70-110 H : TE STED AT [facility] code = 1538) [address] [facility], [address] 30: Career Manager/Techni miguelina ID = [id number] for Rajat, Marybel Lab Interpretation (test Abnormal code = 03718-6) [facility] [id number] 13:54:18 Test Item Value Reference Range Interpretation Comments POC-Glucose Meter (test 133 mg/dL 70-110 H : TE STED AT [facility] code = 1538) [address] [place] [address], 770 30: Career Manager/Techni miguelina ID = [id number] for Rajat, Marybel Lab Interpretation (test Abnormal code = 94931-6) [facility] [id number] 13:54:18 Test Item Value Reference Range Interpretation Comments POC-Glucose Meter (test 133 mg/dL 70-110 H : TE STED AT [facility] code = 1538) [address] [place] [address], 770 30: Career Manager/Techni miguelina ID = [id number] for Rajat, Marybel Lab Interpretation (test Abnormal code = 48647-3) [facility] [id number] 13:54:18 Test Item Value Reference Range Interpretation Comments POC-GLUCOSE METER 133 mg/dL 70-110 H : TESTED A T [facility] 6720 (BEAKER) (test code = [facility], 1538) [address]: Career Manager/Techni miguelina ID = [id number] for An Shaye castrouja POCT-GLUCOSE [id number] 10:12:16 Test Item Value Reference Range Interpretation Comments POC-GLUCOSE METER 135 mg/dL 70-110 H : TESTED A T [facility] 6720 (BEAKER) (test code = [facility], 1538) [address]: Career Manager/Techni miguelina ID = [id number] for HOLLY FULLER MINIMOL SARS-CoV2/RT-PCR (Asymptomatic ONLY)2022-01-09 09:03:44 Test Item Value Reference Interpretation Comments Range SARS-COV2/RT-PCR Negative Negative The SARS-Co V-2 (test code = target nucleic 92668-4) acids are not detected in thi s [...] revoked sooner. Fact Sheet for Healthcare Providers: https://www.[employer]/Documents/Xp ert%20Xpress%20SAR S%20CoV-2/Fact%20S heets/302-3802%20S ARS-COV-2%20HEALTH CARE%20PROVIDERS%2 0FACT%20SHEET.pdf Fact Sheet for Healthcare Patients: https://www.[employer]/Documents/Xp ert%20Xpress%20SAR S%20CoV-2/Fact%20S heets/302-3801%20S ARS-COV-2%20PATIEN T%20FACT%20SHEET.p df Lab Interpretation Normal (test code = 50914-1) [facility]2022-01-09 09:03:44 Test Item Value Reference Interpretation Comments Range SARS-COV2/RT-PCR Negative Negative The SARS-Co V-2 (test code = target nucleic 00198-7) acids are not detected in thi s [...] revoked sooner. Fact Sheet for Healthcare Providers: https://www.[employer]/Documents/Xp ert%20Xpress%20SAR S%20CoV-2/Fact%20S heets/302-3802%20S ARS-COV-2%20HEALTH CARE%20PROVIDERS%2 0FACT%20SHEET.pdf Fact Sheet for Healthcare Patients: https://www.[employer]/Documents/Xp ert%20Xpress%20SAR S%20CoV-2/Fact%20S heets/302-3801%20S ARS-COV-2%20PATIEN T%20FACT%20SHEET.p df Lab Interpretation Normal (test code = 27424-8) [facility]Asymptomatic ONLY)2022-01-09 09:03:44 Test Item Value Reference Interpretation Comments Range SARS-COV2/RT-PCR Negative Negative The SARS-Co V-2 (test code = target nucleic 78969-7) acids are not detected in thi s [...] revoked sooner. Fact Sheet for Healthcare Providers: https://www.[employer]/Documents/Xp ert%20Xpress%20SAR S%20CoV-2/Fact%20S heets/302-3802%20S ARS-COV-2%20HEALTH CARE%20PROVIDERS%2 0FACT%20SHEET.pdf Fact Sheet for Healthcare Patients: https://www.[employer]/Documents/Xp ert%20Xpress%20SAR S%20CoV-2/Fact%20S heets/302-3801%20S ARS-COV-2%20PATIEN T%20FACT%20SHEET.p df Lab Interpretation Normal (test code = 06302-9) [facility]Asymptomatic ONLY)2022-01-09 09:03:44 Test Item Value Reference Interpretation Comments Range SARS-COV2/RT-PCR Negative Negative The SARS-Co V-2 (test code = target nucleic 27015-6) acids are not detected in thi s [...] revoked sooner. Fact Sheet for Healthcare Providers: https://www.[employer]/Documents/Xp ert%20Xpress%20SAR S%20CoV-2/Fact%20S heets/302-3802%20S ARS-COV-2%20HEALTH CARE%20PROVIDERS%2 0FACT%20SHEET.pdf Fact Sheet for Healthcare Patients: https://www.[employer]/Documents/Xp ert%20Xpress%20SAR S%20CoV-2/Fact%20S heets/302-3801%20S ARS-COV-2%20PATIEN T%20FACT%20SHEET.p df Lab Interpretation Normal (test code = 34770-8) [facility]Asymptomatic ONLY)2022-01-09 09:03:44 Test Item Value Reference Interpretation Comments Range SARS-COV2/RT-PCR Negative Negative The SARS-Co V-2 (test code = target nucleic 25215-9) acids are not detected in thi s [...] om SARS-CoV-2 in a nasopharyngeal swab specimen [facility] from individual s suspected of COVID-19 by [...] revoked sooner. Fact Sheet for Healthcare Providers: https://www.[employer]/Documents/Xp ert%20Xpress%20SAR S%20CoV-2/Fact%20S heets/302-3802%20S ARS-COV-2%20HEALTH CARE%20PROVIDERS%2 0FACT%20SHEET.pdf Fact Sheet for Healthcare Patients: https://www.[employer]/Documents/Xp ert%20Xpress%20SAR S%20CoV-2/Fact%20S heets/302-3801%20S ARS-COV-2%20PATIEN T%20FACT%20SHEET.p df Lab Interpretation Normal (test code = 46877-1) [facility]Asymptomatic ONLY)2022-01-09 09:03:44 Test Item Value Reference Interpretation Comments Range SARS-COV2/RT-PCR Negative Negative The SARS-Co V-2 (test code = target nucleic 47504-8) acids are not detected in thi s [...] revoked sooner. Fact Sheet for Healthcare Providers: https://www.[employer]/Documents/Xp ert%20Xpress%20SAR S%20CoV-2/Fact%20S heets/302-3802%20S ARS-COV-2%20HEALTH CARE%20PROVIDERS%2 0FACT%20SHEET.pdf Fact Sheet for Healthcare Patients: https://www.[employer]/Documents/Xp ert%20Xpress%20SAR S%20CoV-2/Fact%20S heets/302-3801%20S ARS-COV-2%20PATIEN T%20FACT%20SHEET.p df Lab Interpretation Normal (test code = 58943-8) [facility] (Asymptomatic ONLY)2022-01-09 09:03:44 Test Item Value Reference Interpretation Comments Range SARS-COV2/RT-PCR Negative Negative The SARS-Co V-2 (test code = target nucleic 35960-6) acids are not detected in thi s [...] revoked sooner. Fact Sheet for Healthcare Providers: https://www.[employer]/Documents/Xp ert%20Xpress%20SAR S%20CoV-2/Fact%20S heets/302-3802%20S ARS-COV-2%20HEALTH CARE%20PROVIDERS%2 0FACT%20SHEET.pdf Fact Sheet for Healthcare Patients: https://www.[employer]/Documents/Xp ert%20Xpress%20SAR S%20CoV-2/Fact%20S heets/302-3801%20S ARS-COV-2%20PATIEN T%20FACT%20SHEET.p df Lab Interpretation Normal (test code = 54112-9) [facility] ([facility])2022-01-09 09:03:44 Test Item Value Reference Range Interpretation Comments SARS-COV2/RT-PCR Negative Negative The SARS-Co V-2 target (test code = nucleic acids a re not 0063281) detected in thi s specimen. Negative result [...] revoked sooner. Fact Sheet for Healthcare Providers: https://www.[employer]/Documents/Xpert%20Xpress%20SARS%20CoV-2/Fact%20Sheets/3023802%26KXTH-VKH-7%20 HEALTHCARE%20PROVIDERS%20FACT%20SHEET.pdf Fact Sheet for Healthcare Patients: https://www.[employer]/Documents/Xpert%20Xp ress%20SARS%20CoV-2/Fact%20Sheets/3023801%15IVFY-NRU-5%20PATIENT%20FACT%20SHEET .[id number] 14:57:00 Test Item Value Reference Range Interpretation Comments SURG (test code = SURG) RUN DATE: 08/26/20 [facility] PAGE 1 RUN TIME: 4037 Specimen Inquiry RUN USER: INTERFACE PAT[facility] [id number] LOC: ANDI U #: [id number] AGE/SX: 55/F ROOM: RE08/23/20[facility] DR: Tapan Harper MD : 69 BED: DIS: STATUS: [facility] TLOC: SPEC #: [id number] RECD: 08/23/20 STATUS: KRISTIN RE #: [id number] AN: 08/23/[address]: Tapan Harper MD ENTERED: 08/23/20 SP TYPE: SURG OTHR DR: Jaron Irving DO ORDERED: SURG PATH LVL 02/01 COPIES TO: Jaron Irving DO [address] [place] [address] Tapan Harper MD [address] [place], [place] [address] HISTOLOGY: TISSUE ID BLK PCS DIANE LEV [...] - R10.84; K59.00 CPT CODES CPT CODE(S): 50173V7 , , , , , , FINAL DIAGNOSIS A. Colon, right, biopsy: COLONIC MUCOSA WITH NO PATHOLOGIC DIAGNOSIS B. Colon, mid, biopsy: COLONIC MUCOSA WITH NO PATHOLOGIC DIAGNOSIS CONTINUED ON NEXT PAGE RUN DATE: 08/26/20 [facility] PAGE 2 RUN TIME: 1457 Specimen Inquiry RUN USER: INTERFACE SPEC #: [id number] PATIENT: PEPE ACOSTA #[id number] (Continued) FINAL DIAGNOSIS (Continued) C. Colon, left, [...] all as C. ba/nr Grossing performed at [facility] Pathology, [address] [place] [address], [address], [place] [address]. Beer Maker: Leeroy Jimenes M.D. MICROSCOPIC DESCRIPTION A. Right [...] 08/26/20 1457 END OF REPORT GLUCOSE BEDSIDE [id number] 08:29:00 Test Item Value Reference Range Interpretation Comments GLUCOSE BEDSIDE TESTING (test code 156 mg/dL 70-110 H = GLUBED) BASIC METABOLIC [id number] 12:40:00 Test Item Value Reference Range Interpretation [...] CA) 9.0 MG/DL 8.5-10.1 N BASIC METABOLIC [id number] 12:37:00 Test Item Value Reference Range Interpretation [...] 9.0 MG/DL 8.5-10.1 N COVID 19 INHOUSE [id number] 12:37:00 Test Item Value Reference Range Interpretation Comments COVID 19 INHOUSE AG NEGATIVE Negative Per manu facturer, (test code = negative result s should [id number]) be treated aspr esumptive and, if inconsi [...] symptoms co nsistent with COVID-19. CBC W/AUTO [id number] 12:23:00 Test Item Value Reference Range Interpretation [...] (test code NO DIFF/SCN CRITERIA = MDIFF) [id number] 15:34:00 RUN DATE: 12/13/19 [facility] PAGE 1 RUN TIME: 1535 Specimen Inquiry RUN USER: INTERFACE ---- --------PATIENT: PEPE ACOSTA LOC: [facility] U #: [id number] AGE/SX: 54/F ROOM: RE12/11/19REG DR: Zacarias Rodriguez MD : 69 BED: DIS: STATUS: [facility] TLOC: SPEC #: [id number] RECD: 12/11/19 STATUS: ROSYT REQ #: [id number] AN: 12/11/19 [facility] DR: Zacarias Rodriguez MD ENTERED: 12/11/19 SP TYPE: SURG OTHR DR: Jaron Irving DO ORDERED: SURG PATH LVL 01/31 COPIES TO: Jaron Irving DO [address] [place], [place] [id number] Zacarias Rodriguez MD [address] [place] [id number] HISTOLOGY: TISSUE ID BLK PCS DIANE LEV PROCEDURE DISPOSITION ____ ___ ___ ___ GASTRIC ANTRUM A 1 3 GASTRIC ANTRUM B 1 3 PROCEDURES: SURG PATH LVL 4 (12/11/19- 1054) TISSUES: A. GASTRIC ANTRUM - GASTRIC BIOPSY B. GASTRIC ANTRUM - DISTAL GASTRIC BIOPSY CLINICAL HISTORY EPIGASTRIC PAIN -R10.13; NAUSEA -R11.0; VOMITING -R11.10 CPT CODES CPT CODE(S): 59823I6 , , , , , , FINAL DIAGNOSIS A. Stomach, biopsy: MILD CHRONIC GASTRITIS NEGATIVE FOR INTESTINAL METAPLASIA, DYSPLASIA, OR MALIGNANCY NEGATIVE FOR HELICOBACTER PYLORI ORGANISMS B. Stomach, distal, biopsy: MILD CHRONIC GASTRITIS NEGATIVE FOR INTESTINAL METAPLASIA, DYSPLASIA, OR MALIGNANCY CONTINUED ON NEXT PAGE RUN DATE: 12/13/19 [facility] PAGE 2 RUN TIME: 1535 Specimen Inquiry RUN USER: INTERFACE SPEC #: [id number] PATIENT: PEPE ACOSTA #[id number] (Continued)------- ----- FINAL DIAGNOSIS (Continued) NEGATIVE FOR HELICOBACTER PYLORI ORGANISMS GROSS DESCRIPTION A. Gastric biopsy. Received in formalin is a vazquez tissue fragment, 0.5 cm, all as A. B. Distal gastric biopsy. Received in formalin is a vazquez tissue fragment, 0.3 cm, all as B. hsivam/nr Grossing performed at [facility] Pathology, [facility] [facility], [address], [place], [place] [address]. Beer Maker: Leeroy Jimenes M.D. MICROSCOPICDESCRIPTION A. Gastric biopsy. [...] identified. Signed SIGNATURE ON FILE Stuart Mendozasami Costa 12/13/19 1534 END OF REPORT GLUCOSE BEDSIDE [id number] 06:17:00 Test Item Value Reference Range Interpretation Comments GLUCOSE BEDSIDE TESTING (test code 170 mg/dL 70-110 H = GLUBED) UR HCG [id number] 11:12:00 Test Item Value Reference Range Interpretation Comments UR HCG QUAL (test code = HCGQLU) NEGATIVE NEGATIVE Notes Date/Time Note Provider Source 2020-08-23 [id number] [facility] 08:52:00-00:00 [facility] [address] [place] [address] PATIENT NAME: PEPE ACOSTA ADMIT DATE: 0 ACCOUNT NO: [id number] ROOM NO: AGE: 55 REPORT TYPE: OPERATIVE REPORT SEX: F ADMITTING PHYSICIAN: ATTENDING PHYSICIAN: Tapan Harper MD OPERATION DATE: 08/23/2020 PREOPERATIVE DIAGNOSES: Coli tis, colonic ulceration surveillance ____ progress. POSTOPERATIVE DIAGNOSIS: See below. PROCEDURES: 1. Colonoscopy. 2. Segmental biopsy for colon x 3 biopsy bottle. SURGEON: Tapan Harper MD BINDER CUTTER HAND: ANESTHESIA: Administered by department of anesth esia. INDICATION: Colitis, colonic ulceration surveill ance ____ progress. COMPLEXITY: Moderate. TOLERANCE TO ANESTHESIA: Excellent. PREP: [place] prep right 2/3, mid 2/3, left 2/3, [...] colonoscope and colonoscopic accessories were removed. Th patient's rectal area cleaned out in a [...] By: Tapan Harper MD WT: OP:L.HIM/MEANI/NTS Conf#: [id number]/DID#: [id number] Authenticated by Tapan Harper MD On 08/30/2020 08:30:15 AM at 0830 PATIENT NAME: PEPE ACOSTA [id number] 2020-08-22 [id number] [facility] 10:59:00-00:[address] [address] PATIENT NAME: PEPE ACOSTA ADMIT DATE: ACCOUNT NO: [id number] ROOM NO: AGE: 55 REPORT TYPE: eELECTROCARDIOGRAM SEX: F ADMITTING PHYSICIAN: ATTENDING PHYSICIAN: Tapan Harper MD Order: [id number] Test Reason : PRE OP Test Date/Time [...] 2227 PATIENT NAME: PEPE ACOSTA [id number] 2019-12-11 [facility] 10:59:00-00:00 [facility] ([facility]) Post Anesthesia Evaluation REPORT#:[id number] REPORT STATUS: Signed DATE:12/11/19 TIME:1059 PATIENT: PEPE ACOSTA UNIT #: [id number] ROOM/BED: : 67 AGE: 54 SEX: F ATTEND: Leticia Rodriguez MD ADM AUTHOR: Gini Nieves MD * ALL edits or amendments must be made on the [employer]/computer document * General Post-op: post surgery rounds [...] Room air 12/11 945 O2 Flow Rate [id number] 12/11 945 Pulse 79 12/11 945 Resp [...] MD on 12/02 at 1100 RPT #: [id number] END OF REPORT 2019-12-11 [id number] [facility] 07:49:00-00:00 [facility] [address] [place] [address] PATIENT NAME: PEPE ACOSTA ADMIT DATE: 0 ACCOUNT NO: [id number] ROOM NO: AGE: 54 REPORT TYPE: OPERATIVE REPORT SEX: F ADMITTING PHYSICIAN: ATTENDING PHYSICIAN: Zacarias Rodriguez MD OPERATION DATE: 12/11/2019 PREOPERATIVE DIAGNOSIS: POSTOPERATIVE DIAGNOSIS: PROCEDURES: 1. EGD. 2. Biopsy from gastric body and antrum. 3. Biopsy from distal esophagus. SURGEON: Tapan Harper MD BINDER CUTTER HAND: ANESTHESIA: Anesthesia by departmental anesthesi a. INDICATION [...] By: Tapan Harper MD WT: OP:L.HIM/CHRISTOPHERI/NTS Conf#: [id number]/DID#: [id number] Authenticated by Tapan Harper MD On 12/14/2019 [...] THE ABDOMEN AND PELVIS WITH CONTRAST: MORRIS BONE [place] 11:25:00-00:00 DISCUSSION: The study is a preoperative [...] THE ABDOMEN AND PELVIS WITH CONTRAST: MORRIS MAYRAAshely [place]by 11:25:00-00:00 DISCUSSION: The study is a preoperative [...]
[2023-05-18 22:24] LABS: Hematocrit 45.1 % (36.0-45.0); RBC Red Blood Cell Count 4.76 M/uL (3.86-4.86)
[2023-05-18 22:25] LABS: Absolute Lymphocytes (CBC) 1.7 K/uL (0.7-4.9); Lymphocytes % 26.7 % (15.3-44.8); MCV 94.8 fL (80-100); MPV 8.1 fL (7.6-11.3)
[2023-05-18] MEDS ORDERED: FAMOTIDINE 20 MG/2 ML VIAL IV ONE (22:39)
[2023-05-18] MEDS ORDERED: ONDANSETRON 4 MG/2 ML VIAL ONE (22:39)
[2023-05-18] MEDS ORDERED: BISACODYL 10 MG RECTAL SUPP ONE (22:39)
[2023-05-18] MEDS ORDERED: NA CHLORIDE 0.9% 1,000 ML ONE (22:39)
[2023-05-18] MEDS ORDERED: LACTULOSE 20 GM/30 ML UCUP ONE (22:40)
[2023-05-18 22:45] LABS: Albumin 3.4 g/dL (3.4-5.0); Bilirubin Total 0.4 mg/dL (0.2-1.0); Potassium 3.8 mEq/L (3.5-5.1); Protein, Total 7.4 g/dL (6.4-8.2)
--- NOTE | 2023-05-19 00:09 | ER ---
Nurse's Notes [facility] Name: Maria De Jesus Acosta Age: 58 yrs Sex: Female : 1965 Arrival Date: 05/18/2023 Time: 20:37 Bed 17 Private MD: Trent Irving H Diagnosis: Constipation Presentation: 05/18 20:42 Chief complaint: Patient states: pt was seen here today and discharge just a few hours as6 ago for constipation and is c/o medication not working yet for constipation. Coronavirus screen: At this time, the client does not indicate any symptoms associated with coronavirus-19. Ebola Screen: No symptoms or risks identified at this time. Initial Sepsis Screen: Does the patient meet any 2 criteria? No. Patient's initial sepsis screen is negative. Does the patient have a suspected source of infection? No. Patient's initial sepsis screen is negative. Risk Assessment: Do you want to hurt yourself or someone else? Patient reports no desire to harm self or others. Onset of symptoms was May 18, 2023. 20:42 Method Of Arrival: Wheelchair as6 20:42 Acuity: EMERALD 4 as6 Historical: - Allergies: 20:45 Doxycycline; as6 20:45 kiwi; as6 20:45 metoclopramide HCl; as6 20:45 orange juice; as6 20:45 Reglan; as6 - PMHx: 20:45 Asthma; CHF; COPD; Crohn's; Diabetes - NIDDM; Hypertension; Nasal cancer; as6 - PSHx: 20:45 Appendectomy; Cholecystectomy; Ligation of fallopian tube; Shoulder; as6 - Immunization history:: Client reports receiving the 2nd dose of the Covid vaccine, moderna. - Social history:: Smoking status: Patient denies any tobacco usage or history of. Screenin:58 [facility] ED Fall Risk Assessment (Adult) History of falling in the last 3 months, jj7 including since admission No falls in past 3 months (0 pts) Confusion or Disorientation No (0 pts) Intoxicated or Sedated No (0 pts) Impaired Gait No (0 pts) Mobility Assist Device Used No (0 pt) Altered Elimination No (0 pt) Score/Fall Risk Level 0 - 2 = Low Risk Oriented to surroundings, Maintained a safe environment. Abuse screen: Denies threats or abuse. Nutritional screening: No deficits noted. Tuberculosis screening: No symptoms or risk factors identified. Assessment: 20:58 General: Appears in no apparent distress. uncomfortable, Behavior is calm, cooperative, jj7 appropriate for age. Pain: Complains of pain in abdomen. GI: Abdomen is tender to palpation in epigastric area, right upper quadrant and left upper quadrant Reports constipation. 23:53 Reassessment: PT STATES SHE HAD A LARGE AMOUNT OF BM. FEELING BETTER. jj7 05/19 00:17 GI: jj7 Vital Signs: 05/18 20:42 BP 107 / 54; Pulse 103; Resp 20 S; Temp 97.8(TE); Pulse Ox 91% on R/A; Weight 146.96 kg as6 (R); Height 5 ft. 3 in. (R); Pain 8/10; 22:00 BP 127 / 67; Pulse 98; Resp 20; Pulse Ox 94% on 2 lpm NC; jj7 23:00 BP 124 / 69; Pulse 95; Resp 18; Pulse Ox 92% on 2 lpm NC; jj7 05/19 00:00 BP 114 / 68; Pulse 89; Resp 17; Pulse Ox 94% on R/A; Pain 0/10; jj7 05/18 20:42 Body Mass Index 57.39 (146.96 kg, 160.02 cm) as6 05/18 20:42 Pain Scale: Adult as6 05/19 00:00 Pain Scale: Adult jj7 ED Course: 05/18 20:40 Patient arrived in ED. mr 20:40 Trent Irving DO is Private Physician. mr 20:42 Dominguez Thompson PA is PHCP. cp 20:42 Renan Alvarez MD is Attending Physician. cp 20:45 Triage completed. as6 20:46 Arm band placed on. as6 20:52 Bertha Carpio RN is Primary Nurse. jj7 20:58 Patient has correct armband on for positive identification. Bed in low position. Call jj7 light in reach. Side rails up X2. Adult w/ patient. 20:58 No provider procedures requiring assistance completed. jj7 22:18 Inserted saline lock: 22 gauge antecubital area, using aseptic technique. Blood jl10 collected. 05/19 00:17 IV discontinued, intact, bleeding controlled, No redness/swelling at site. Pressure jj7 dressing applied. Administered Medications: 05/18 22:40 Drug: NS 0.9% IV 250 ml Route: IV; Rate: 250 ml/hr; Site: right antecubital; jj7 23:44 Follow up: IV Status: Completed infusion j7 22:41 Drug: Famotidine IVP 20 mg Route: IVP; Site: right antecubital; jj7 05/19 00:15 Follow up: Response: Marked relief of symptoms jj7 05/18 22:41 Drug: Ondansetron IVP 4 mg Route: IVP; Site: right antecubital; jj7 05/19 00:15 Follow up: Response: Marked relief of symptoms jj7 05/18 22:41 Drug: Lactulose PO 30 grams Volume: 45 ml; Route: PO; jj7 05/19 00:15 Follow up: Response: Marked relief of symptoms jj7 05/18 22:41 Drug: Dulcolax [place] Suppository 10 mg Route: GA; jj7 05/19 00:14 Follow up: Response: Marked relief of symptoms j7 00:14 Not Given (PT HAD BMm): Magnesium Citrate PO Liquid 300 ml PO once jj7 Medication: 05/18 20:58 VIS not applicable for this client. jj7 Outcome: 05/19 00:09 Discharge ordered by . annie 00:17 Discharged to home via wheelchair, with significant other. jj7 00:17 Condition: improved 00:17 Discharge instructions given to patient, Instructed on discharge instructions, Demonstrated understanding of instructions. 00:18 Patient left the ED. jj7 Signatures: Julio Flory Dominguez Felton PA PA cp Slawson, Ashby, RN RN as6 Bertha Carpio RN RN jj7 Lakshmi Lynch jl10 Corrections: (The following items were deleted from the chart) 05/18 20:46 20:42 Acuity: EMERALD 5 as6 as6
--- NOTE | 2023-05-19 00:09 | EDPHYS ---
Physician Documentation [facility] Name: Maria De Jesus Acosta Age: 58 yrs Sex: Female : 1965 Arrival Date: 05/18/2023 Time: 20:37 Bed 17 Private MD: Trent Irving H ED Physician Renan Alvarez HPI: 05/18 22:00 This 58 yrs old Female presents to ER via Wheelchair with complaints of cp Abdominal Pain. 22:00 The patient presents with abdominal pain constipation, nausea/vomiting. Onset: The cp symptoms/episode began/occurred gradually. Associated signs and symptoms: Pertinent negatives: chest pain, diarrhea, fever. Patient returns to ED after being seen earlier today and diagnosed with constipation. Patient concerned that she has not had bowel movement. Historical: - Allergies: 20:45 Doxycycline; as6 20:45 kiwi; as6 20:45 metoclopramide HCl; as6 20:45 orange juice; as6 20:45 Reglan; as6 - PMHx: 20:45 Asthma; CHF; COPD; Crohn's; Diabetes - NIDDM; Hypertension; Nasal cancer; as6 - PSHx: 20:45 Appendectomy; Cholecystectomy; Ligation of fallopian tube; Shoulder; as6 - Immunization history:: Client reports receiving the 2nd dose of the Covid vaccine, moderna. - Social history:: Smoking status: Patient denies any tobacco usage or history of. ROS: 22:05 Constitutional: Negative for body aches, chills, fever. cp 22:05 Eyes: Negative for injury, pain, redness, and discharge. cp 22:05 ENT: Negative for drainage from ear(s), ear pain, sore throat, difficulty swallowing, difficulty handling secretions. 22:05 Cardiovascular: Negative for chest pain, palpitations. 22:05 Respiratory: Negative for cough, shortness of breath, wheezing. 22:05 Abdomen/GI: Positive for abdominal pain, nausea and vomiting, constipation, Negative for diarrhea. 22:05 Neuro: Negative for altered mental status, dizziness, headache, weakness. 22:05 All other systems are negative. Exam: 22:10 Head/Face: Normocephalic, atraumatic. cp 22:10 Constitutional: The patient appears in no acute distress, alert, awake, non-diaphoretic, non-toxic, well developed, well nourished, morbid obesity 22:10 Eyes: Periorbital structures: appear normal, Conjunctiva: normal, no exudate, no cp injection, Sclera: no appreciated abnormality, Lids and lashes: appear normal, bilaterally. 22:10 ENT: External ear(s): are unremarkable, Nose: is normal, Mouth: Lips: moist, Oral mucosa: pink and intact, moist, Posterior pharynx: is normal, airway is patent, no erythema, no exudate. 22:10 Chest/axilla: Inspection: normal. 22:10 Cardiovascular: Rate: tachycardic, Rhythm: regular. 22:10 Respiratory: the patient does not display signs of respiratory distress, Respirations: normal, no use of accessory muscles, no retractions, labored breathing, is not present, Breath sounds: are clear throughout, no decreased breath sounds, no stridor, no wheezing. 22:10 Abdomen/GI: Inspection: obese Bowel sounds: active, all quadrants, Palpation: soft, in all quadrants, moderate abdominal tenderness, in all quadrants, rebound tenderness, is not appreciated. 22:10 Back: pain, is absent, ROM is normal. 22:10 Neuro: Orientation: to person, place \T\ time. Mentation: is normal. Vital Signs: 20:42 BP 107 / 54; Pulse 103; Resp 20 S; Temp 97.8(TE); Pulse Ox 91% on R/A; Weight 146.96 kg as6 (R); Height 5 ft. 3 in. (R); Pain 8/10; 22:00 BP 127 / 67; Pulse 98; Resp 20; Pulse Ox 94% on 2 lpm NC; 7 23:00 BP 124 / 69; Pulse 95; Resp 18; Pulse Ox 92% on 2 lpm NC; [facility] 05/19 00:00 BP 114 / 68; Pulse 89; Resp 17; Pulse Ox 94% on R/A; Pain 0/10; 7 05/18 20:42 Body Mass Index 57.39 (146.96 kg, 160.02 cm) as6 05/18 20:42 Pain Scale: Adult as6 05/19 00:00 Pain Scale: Adult [facility] MDM: 05/18 20:55 Patient medically screened. cp 05/19 00:06 Data reviewed: vital signs, nurses notes, lab test result(s), ED note, labs and CT cp report from previous visit. 00:07 I considered the following discharge prescriptions or medication management in the emergency department Medications were administered in the Emergency Department. See MAR. 00:07 Care significantly affected by the following chronic conditions: Diabetes, cp Hypertension, Congestive Heart Failure, Chronic Obstructive Pulmonary Disease, Obesity. Counseling: I had a detailed discussion with the patient and/or guardian regarding: the historical points, exam findings, and any diagnostic results supporting the discharge/admit diagnosis, lab results, radiology results, the need for outpatient follow up, a family practitioner, to return to the emergency department if symptoms worsen or persist or if there are any questions or concerns that arise at home. Response to treatment: the patient's symptoms have markedly improved after treatment, and as a result, I will discharge patient. 05/18 21:49 Order name: CBC with Diff; Complete Time: 22:49 cp 05/18 21:49 Order name: CMP; Complete Time: 22:49 cp 05/18 21:49 Order name: Lipase; Complete Time: 22:49 cp 05/18 21:49 Order name: IV Saline Lock; Complete Time: 22:20 cp 05/18 21:49 Order name: Labs collected and sent; Complete Time: 22:20 cp Administered Medications: 05/18 22:40 Drug: NS 0.9% IV 250 ml Route: IV; Rate: 250 ml/hr; Site: right antecubital; jj7 23:44 Follow up: IV Status: Completed infusion 22:41 Drug: Famotidine IVP 20 mg Route: IVP; Site: right antecubital; j05/19 00:15 Follow up: Response: Marked relief of symptoms 05/18 22:41 Drug: Ondansetron IVP 4 mg Route: IVP; Site: right antecubital; 05/19 00:15 Follow up: Response: Marked relief of symptoms 05/18 22:41 Drug: Lactulose PO 30 grams Volume: 45 ml; Route: PO; 05/19 00:15 Follow up: Response: Marked relief of symptoms 05/18 22:41 Drug: Dulcolax [place] Suppository 10 mg Route: [place]; 05/19 00:14 Follow up: Response: Marked relief of symptoms 00:14 Not Given (PT HAD BMm): Magnesium Citrate PO Liquid 300 ml PO once j7 Disposition Summary: 05/19/23 00:09 Discharge Ordered Location: Home cp Problem: chronic cp Symptoms: have improved cp Condition: Stable cp Diagnosis - Constipation cp Followup: cp - With: Private Physician - When: 2 - 3 days - Reason: Recheck today's complaints Discharge Instructions: - Discharge Summary Sheet cp - Constipation, Adult cp Forms: - Medication Reconciliation Form cp - Thank You Letter cp - Antibiotic Education cp - Prescription Opioid Use cp - Patient Portal Instructions cp Signatures: Dispatcher [employer] EDMS Dominguez Thompson PA PA cp Estevan Aldana RN RN as6 Bertha Carpio RN RN jj7 Corrections: (The following items were deleted from the chart) 05/20 00:12 00:09 Constitutional: The patient appears in no acute distress, alert, awake, cp non-diaphoretic, non-toxic, well developed, well nourished, morbid obesity cp 00:12 00:09 Head/Face: Normocephalic, atraumatic. cp cp
[2023-05-19 01:36] VITALS: TEMP 97.8
[2023-05-19 01:40] VITALS: BP 114/68; O2SAT 94
== END 2023-05-19 00:18 | disposition home or self-care (01) ==
LOC: ER 20:37
DX: K59.00 Constipation, unspecified (principal); Z88.1 Allergy status to other antibiotic agents; Z91.018 Allergy to other foods
CPT/HCPCS: 96365; 85025; 36415; 83690; 80053; 96375; 99284; J2405; J7030

== ENCOUNTER 2023-06-10 05:04 | Emergency (ER) | payer OTHER ==
--- OUTSIDE RECORDS SUMMARY | 2023-06-10 05:17 | XMS REPORT | Clinical Summary ---
:1965 Author Organization [facility] MD Ruelas [facility] Address [address] [place] [address] Care Team Providers Name Role Phone Bina Obando MD Unavailable Kenya Agarwal MD Primary Care Provider Trent Irving MD Unavailable Randall Sheriff MD Unavailable Vignesh Waddell MD Unavailable Naa Miller MD [facility] Rafael Rosas MD [...] procedure Metoclopramide Hcl Other (See 10/16/2022 Comments) [place] Juice Nausea And Low 04/18/2021 Vomiting, GI [...] Active (Easy Comfort Pen insulin 4 23 [place]) 31 gauge x times a day 03/16" ndleIndications: Type 2 diabetes mellitus with hyperglycemia ondansetron (ZOFRAN) 8 Take 1 tablet 30 tablet 3 02/05/2003/02 Active mg tabletIndications: (8 mg) by 23 [...] pain (eight) hours as needed for congestion. oxyCODONE-acetaminophe Take 1 tablet 60 tablet 0 03/04/20 Active n (Percocet) 5 mg-325 by mouth 2 23 mg per (two) times a tabletIndications: day as needed Cancer associated pain for severe pain. cefPODoxime (VANTIN) Take 1 tablet 0 03/14/20 Active 200 mg tablet (200 mg) by 23 mouth twice daily. apixaban (Eliquis) 5 Take 1 tablet 84 tablet 0 03/31/20 Active mg tabletIndications: (5 mg) by 23 Acute thrombosis of mouth every 12 right axillary vein, (twelve) Bilateral acute hours. thrombosis of basilic veins, Thrombosis of left cephalic vein, longterm use of anticoagulant gabapentin (NEURONTIN) TAKE 1 90 tablet 0 04/09/20 Active 800 mg TABLET(800 MG) 23 tabletIndications: BY MOUTH EVERY Chronic pain 8 HOURS promethazine-dextromet TAKE 5 ML BY 0 03/30/20 Active horphan MOUTH EVERY 6 23 (PROMETHAZINE-DM) HOURS 6.25-15 mg/5 mL syrup NEEDED FOR COUGH benzonatate (TESSALON) 0 03/26/20 Active 100 mg capsule 23 spironolactone TAKE 1 TABLET 0 03/27/20 A ctive (ALDACTONE) 25 mg BY MOUTH EVERY 23 tablet DAY oxyCODONE-acetaminophe 0 03/20/20 Active n (PERCOCET) 2.5-325 23 mg per tablet predniSONE (DELTASONE) TWICE DAILY 0 03/26/20 Active 10 mg tablet 23 metoprolol succinate TAKE 1 TABLET 0 02/25/20 Active (TOPROL XL) 100 mg 24 BY MOUTH TWICE 23 hr tablet DAILY hydrocortisone Take 2 tablets 90 tablet 1 05/11/20 Active (CORTEF) 10 mg (20 mg) by 23 tabletIndications: mouth daily Abnormal cortisol with breakfast AND 1 tablet (10 mg) daily with dinner. metFORMIN (GLUCOPHAGE) Take 1 tablet 180 tablet 3 05/26/20 Active 1000 mg (1,000 mg) by 23 tabletIndications: mouth 2 (two) Type 2 diabetes times a day mellitus with with meals. hyperglycemia semaglutide (Ozempic) Inject 1 mg 3 mL 0 05/26/20 Active 1 mg/dose (4 mg/3 mL) under the skin pnijIndications: Type every 7 days. 2 diabetes mellitus with hyperglycemia allopurinol (ZYLOPRIM) TAKE 1 TABLET 0 09/01/2021/12 [...] dicyclomine (BENTYL) TAKE 1 CAPSULE 0 10/12/2012/31 0 Discontinued 10 mg capsule BY MOUTH EVERY [...] 11/09/19 Discontinued (MICROZIDE) 12.5 mg (12.5 mg) capsule every morning. HYDROcodone-acetaminop TAKE 1 TABLET [...] 10/05/20 Discontinued Needle 32 gauge x DIRECTED. (R eorder) 532" ndle rizatriptan 0 08/25/20 Disconti nued (MAXALT-ENVIRONMENTAL DIRECTOR) 5 mg (E rror) disintegrating tablet spironolactone TAKE 1 TABLET 0 10/19/20 D iscontinued (ALDACTONE) 25 mg BY MOUTH EVERY (Stop Taking at tablet DAY Discharge) sucralfate (CARAFATE) TAKE 1 TABLET 0 08/20/2012/02 4/2 Discontinued 1 g tablet BY MOUTH TWICE 023 (Sto p Taking at DAILY Discharge) insulin syringe-needle USE TWICE 0 10/01/20 Discontinued U-100 1 mL 31 gauge x DAILY WITH 22 023 (Stop Taking at 5/16 syrg MEALS. Discharge) triamcinolone APPLY 0 08/28/20 Discon tinued (KENALOG) 0.1% cream TOPICALLY TO 023 (Error) THE AFFECTED AREA TWICE DAILY BD Insulin Syringe USE 1 SYRINGE 0 03/03/20 Discontinued U-500 1/2 mL 31 gauge DIRECTED 023 (Stop Taking at x 15/64" syrg TWICE [...] Discontinued U-500 conc (HumuLIN R 160 Units 023 (Reorder) U-500, Conc, Kwikpen) under the skin 500 unit/mL (3 mL) 3 (three) insulin times a day penIndications: Type 2 before meals. diabetes mellitus without complication BD Devorah 2nd Gen Pen Inject 1 100 each 3 12/15/19 Discontinued Needle 32 gauge x Device under 23 023 (Stop Taking at 5/32" ndleIndications: the skin 3 Discharge) Type 2 [...] vomiting. ondansetron Dissolve 1 60 tablet 1 02/17/20 02/17/2 Discont inued (ZOFRAN-ODT) 8 mg tablet (8 mg) disintegrating on the tongue tabletIndications: every 8 Adenocarcinoma of (eight) hours nasopharynx as needed for nausea. sodium chloride (NS) Inject 10 mL 30 each 6 12/23/1902/16/ Discontinued 0.9% flush syringe 10 (1 syringe) [...] mg (100 mg) by (Stop Taking at tablet mouth 3 Discharge) [...] oxyCODONE-acetaminophe Take 1 tablet 45 tablet 0 02/12/19/12 Discontinued n (Percocet) 7.5-325 by mouth every 023 (Stop Taking at mg per 6 (six) hours Discha rge) tabletIndications: as needed for Neoplasm related pain severe pain (acute) (chronic) for up to 45 days. enoxaparin (LOVENOX) Inject 0.8 mL 60 each 0 02/13/2003/31 Discontinued 120 mg/0.8 mL (120 mg) under 23 023 prefilled the skin every syringeIndications: 12 (twelve) Deep venous thrombosis hours. <Unspecified side> levoFLOXacin Take 1 tablet 3 tablet 0 02/17/20 Exp ired (LEVAQUIN) 750 mg (750 mg) by 23 023 tabletIndications: mouth daily Adenoid cystic for 3 days. carcinoma of nasopharynx, NOS, Deep venous thrombosis <Unspecified side> gabapentin (NEURONTIN) TAKE 1 90 tablet 0 03/02/20 Discontinued 800 mg TABLET(800 MG) 23 023 (Reor teetee) tabletIndications: BY MOUTH EVERY Chronic pain 8 HOURS metFORMIN (GLUCOPHAGE) TAKE 1 TABLET 0 03/10/2025/12 Discontinued 1000 mg tablet BY MOUTH IN 23 023 (Th erapy THE MORNING complete d) AND IN THE EVENING WITH MEALS Active Problems Problem Noted Date buttermaker continuous churn use of anticoagulant 03/31/2023 Acute thrombosis of right axillary vein 02/08/2023 Bilateral acute thrombosis of basilic veins 02/08/2023 Thrombosis of left cephalic vein 02/08/2023 Febrile neutropenia 02/06/2023 Shortness of breath 02/06/2023 Central line associated bloodstream infection 02/07/20 Disorder of fluid AND/OR electrolyte 02/06/2023 Other secondary thrombocytopenia 02/06/2023 Hematochezia 01/27/2023 Abdominal pain, epigastric 01/26/2023 Other severe protein-calorie malnutrition 01/25/2023 Insulin resistance 01/18/2023 History of fall 01/12/2023 Type 2 diabetes mellitus with hyperglycemia 01/12/2023 Malnutrition of moderate degree 01/12/2023 Mucositis due to antineoplastic therapy 01/11/2023 Swallowing painful 01/11/2023 Current use of insulin 12/10/2022 Adverse effect of glucocorticoids and synthetic analog ues 12/10/2022 Headache 12/09/2022 Adenoid cystic carcinoma of nasopharynx, 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: Stage WINDY (cT4, cN0, cM0) - Unsigned Essential hypertension 02/15/2020 Gastroesophageal reflux disease 07/28/2018 Other hyperlipidemia 07/28/2018 Severe protein-calorie malnutrition Resolved Problems Problem Noted Date Resolved Date Intractable nausea and vomiting 02/05/2023 05/25/20 23 Hemoglobin A1c greater than 10 percent indicating poor 01/1205/25/2023 diabetic control buttermaker continuous churn current use of systemic steroid 12/10/2022 05/25/2023 Encounters Date Type Specialty Care Team Description 06/08/2023 Documentation Endocrinology Jenna Alvarado RN 06/06/2023 Refill Oncology Duy Hdez carcinoma of [place], WIND ENERGY MECHANIC nasopharynx, NO S 05/26/2023 Telemedicine Endocrinology Jose, Type 2 diabete s mellitus with hyperglycemia (Primary Dx); BORIS Calixto Abnormal corti kaye 05/26/2023 Telephone Endocrinology Marily Garcia APRN 05/26/2023 Telephone Endocrinology Jenna Alvarado RN 05/25/2023 Orders Only Endocrinology Jose, Type 2 diabete s mellitus with hyperglycemia (Primary Dx); BORIS Calixto Abnormal corti kaye; Long-term (curr ent) use of insulin 05/24/2023 Telephone Endocrinology No Andrade MD Needle, Pamela A, RN 05/21/2023 Documentation Endocrinology Akil Edwards RN 05/21/2023 Documentation Pain Medicine Randall Ferrer 05/18/2023 Telephone Endocrinology No Andrade MD Needle, Pamela A, RN 05/11/2023 Telephone Endocrinology Marily Garcia APRN 05/02/2023 Telephone Endocrinology No Andrade MD 04/22/2023 Follow-Up Thoracic Medicine Duy Rosario MD carcinoma of nasopharynx, NO S 04/22/2023 Follow-Up Radiation Oncology Winter Luu MD carcinoma of nasopharynx, NO S 04/22/2023 Ancillary Procedure Radiology Winter Luu MD carcinoma of nasopharynx, NO S 04/22/2023 Travel 04/09/2023 Refill Pain Medicine Flaco Thomas, JCARLOS 04/08/2023 Refill Pain Medicine Flaco Gordon alejandrina Fernandez MD 03/31/2023 Office Visit Hematology Rosana Harkins MD longterm use of anticoagulant (Primary Dx); Adenoid cystic [...] Endocrinology Angela Lopes, Type 2 diabet es WIND ENERGY MECHANIC mellitus withou t complication (P rimary Dx) 03/18/2023 Telephone Oncology Vaibhav Rosario MD 03/16/2023 Orders Only Oncology Lemuel, Adenoid cystic [place]ore[place] carcinoma of Kayla, WIND ENERGY MECHANIC nasopharynx, 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) 03/12/2023 Nutrition Nutrition Kenya Agarwal MD Martin, Cathy A, ADAM 03/11/2023 Infusion Infusion Services Lemuel, Adenoid cy stic [place] carcinoma of Kayla, WIND ENERGY MECHANIC nasopharynx, 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) 03/11/2023 Follow-Up Oncology Lemuel, Adenoid cystic [place] carcinoma of Kayla, WIND ENERGY MECHANIC nasopharynx, 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) 03/11/2023 Travel 03/09/2023 Telephone Oncology Lorena Hdez, WIND ENERGY MECHANIC 03/04/2023 Nutrition Nutrition Kenya Agarwal MD Martin, Cathy A, ADAM 03/04/2023 Orders Only Oncology Lemuel, Lorena Garza, WIND ENERGY MECHANIC 03/04/2023 Telephone Thoracic Medicine Tita Kwon RN 03/04/2023 Orders Only Pain Medicine Evan, Cancer associa kaylie Fernandez MD pain (Primary Dx) 03/03/2023 Follow-Up Thoracic Medicine Kenny Power, Meliaid cy stic carcinoma of nasopharynx, NOS; MD Vaibhav Deep venous thr ombosis <Unspecified side> 03/03/2023 Refill Pain Medicine Tyrell, Chronic pain Anumyasmany, WIND ENERGY MECHANIC 03/03/2023 Travel 03/02/2023 Refill Pain Medicine Tyrell, Chronic pain Cony, WIND ENERGY MECHANIC 02/26/2023 Telemedicine Pain Medicine Evan, Chronic pain ( Primary Miguel Fernandez MD Dx) 02/25/2023 Nutrition Nutrition Kenya Agarwal MD Martin, Cathy A, ADAM 02/19/2023 Telephone Radiation Oncology Anthony Lancaster RN 02/18/2023 Nutrition Nutrition Kenya Agarwal MD Martin, Cathy A, ADAM 02/12/2023 Clinical Support Radiation Oncology Winter Luu MD 02/12/2023 Hospital Encounter Radiation Oncology Kenya Agarwal MD 02/12/2023 Documentation Radiation Oncology AuburnWinter MD 02/12/2023 Orders Only Radiation Oncology Winter Luu Adenocarc inoma of nasopharynx (Primary Dx); MD Gini Adenoid cystic carcinoma of nasopharynx, NOS 02/12/2023 Orders Only Pain Medicine Bruce, Neoplasm relat ed pain (acute) (chronic) (Primary Dx); MD Elvis Chronic pain 02/10/2023 Orders Only Speech Pathology Charla Solis Oropharynge jessica Eckert, [facility] WORKROOM CLERK dysphagia (Prim cristina Dx) 02/08/2023 Hospital Encounter Radiation Oncology Kenya Agarwal MD 02/06/2023 Travel 02/05/2023 Hospital Encounter GIM/Phase 1 Deneen Guevara, Intractab le nausea and vomiting (Primary Dx); - Type 2 diabetes mellitus with hyperglyce moncho; 02/16/2023 Wattansourav, Swallowing pain ful; MD Felisa Dyspnea; Brooks, Adenoid cystic carcinoma of nasopharynx, NOS; MD Romana Chronic pain; Amanda Proctor, Deep venous th rombosis <Unspecified side>; Type 2 diabetes mellitus without complic ation; Soria, Son Shortness of br MD Bridget Alford Norman, MD Mohammed, MD Phyllis See Michelle, MD 02/05/2023 Telephone Thoracic Medicine [facility], ... (The p atient's MD Vaibhav son [...] Dx) 02/03/2023 Orders Only Oncology Lorena Hdez, WIND ENERGY MECHANIC 02/03/2023 Travel 02/02/2023 Travel 01/31/2023 Refill Internal Medicine Rohan, Type 2 juliet ryan Peñaloza, mellitus with WIND ENERGY MECHANIC hyperglycemia (Primary Dx) 01/28/2023 Telephone Radiation Oncology Felisa Castillo RN 01/28/2023 Orders Only Oncology Lorena Hdez, WIND ENERGY MECHANIC 01/26/2023 Hospital Encounter Uro/Ortho/GI Wattana, Chronic p ain (Primary Dx); - MD Felisa Swallowing painful; 02/01/2023 Amanda, Abdominal pain, epigastric; MD Jad Rectal hemorrhage; Amanda Proctor, Mucositis due to antineoplastic therapy; MD Gordillo cystic carcinoma of nasopharynx, NOS; Karissa, Hypomagnesemia; [...] ADAM 01/22/2023 Travel 01/21/2023 Infusion Infusion Services Hdez, Adenoid cy stic [place]orena carcinoma of Kayla, WIND ENERGY MECHANIC nasopharynx, 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) 01/21/2023 Follow-Up Thoracic Medicine Kenny Power Adenoid cy rain Esposito MD carcinoma of nasopharynx, 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) 01/21/2023 Travel 01/20/2023 Consult Pain Medicine Williams, buttermaker continuous churn cur rent use of opiate analgesic (Primary Dx); Rogerio, Adenocarcinoma of nasopharynx; 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; Neoplasm relate d pain (acute) (chronic) 01/20/2023 Documentation Pain Medicine Randall Ferrer 01/20/2023 Travel 01/19/2023 Clinical Support Radiation Oncology Winter Luu MD 01/19/2023 Travel 01/14/2023 Orders Only Speech Pathology Gorman, Dysphagia, [place] oropharyngeal p hase Helen, (Primary Dx) [employer] WORKROOM CLERK 01/12/2023 Refill Internal Medicine Yao Ordaz on [...] of glucocorticoids and synthetic analogues, subsequent encounter; buttermaker continuous churn curre nt use of systemic steroid; Hyperlipidemia, not otherwise specified; Gastroesophagea l reflux disease; Essential hyper tension; Mucositis (ulce rative) due to antineoplastic therapy; Neoplasm relate d pain (acute) (chronic); Hypertension; 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; Insulin resista nce 01/11/2023 Travel 01/11/2023 Telephone Radiation Oncology Felisa Castillo, RN 01/08/2023 Nutrition Nutrition Agarwal, MD Clint Tate Cathy A, RD 01/08/2023 Travel 01/07/2023 Infusion Infusion Services Hdez, Adenoid cy stic [place] carcinoma of [place]la, WIND ENERGY MECHANIC nasopharynx, 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) 01/07/2023 Follow-Up Oncology Hdez, Adenoid cystic [place] carcinoma of Kayla, WIND ENERGY MECHANIC nasopharynx, 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) 01/07/2023 Travel 01/06/2023 Infusion Infusion Services Hdez, Adenoid cy stic [place] carcinoma of Kayla, WIND ENERGY MECHANIC nasopharynx, 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) 01/06/2023 Travel 01/05/2023 Travel 01/04/2023 Clinical Support Radiation Oncology Winter Luu MD nasopharynx (Pr imary Dx) 01/04/2023 Infusion Infusion Services Hdez, Adenoid cy stic [place] carcinoma of Kayla, WIND ENERGY MECHANIC nasopharynx, 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) 01/04/2023 Travel 01/01/2023 Infusion Infusion Services Hdez, Adenoid cy stic [place] carcinoma of Kayla, WIND ENERGY MECHANIC nasopharynx, 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) 01/01/2023 Follow-Up [...] Hdez, Adenoid cystic [place] carcinoma of Kayla, WIND ENERGY MECHANIC nasopharynx, 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) 12/30/2022 Hospital [...] Adenoid cy stic [place] carcinoma of Kayla, WIND ENERGY MECHANIC nasopharynx, 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) 12/24/2022 Follow-Up Thoracic Medicine Duy Rosario MD carcinoma of nasopharynx, NO S 12/24/2022 Telephone Radiation Oncology Felisa Castillo, RN 12/24/2022 Telephone Head and Neck Kenya Agarwal MD 12/24/2022 Telephone Thoracic Medicine Tita Kwon, RN 12/24/2022 Telephone Thoracic Medicine Tita Kwon [...] Hdez, Adenoid cystic [place] carcinoma of Kayla, WIND ENERGY MECHANIC nasopharynx, 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) 12/18/2022 Orders Only Radiation Oncology Lindy Montenegro PA 12/18/2022 Orders Only Radiation Oncology [place], Adenocarc inoma of Lindy nasopharynx BALJINDER Sotelo 12/17/2022 Clinical Support Radiation Oncology Kenya Agarwal MD Lawrence, Holly D, RN 12/17/2022 Documentation Radiation Oncology Winter Luu MD 12/17/2022 Documentation Radiation Oncology Winter Luu MD 12/17/2022 Documentation Radiation Oncology Winter Luu MD 12/17/2022 Orders Only Oncology Hdez, Adenoid cystic [place] carcinoma of Kayla, WIND ENERGY MECHANIC nasopharynx, 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) 12/17/2022 Travel 12/17/2022 Orders Only Radiation Oncology Winter Luu MD 12/16/2022 Orders Only Radiation Oncology Winter Luu Adenocarc inoma of MD Gini nasopharynx (Pr imary Dx) 12/16/2022 Telephone Radiation Oncology Felisa Castillo RN 12/16/2022 Telephone Endocrinology Rosmery Dickinson RD 12/15/2022 Hospital Encounter Dental Oncology Kenya Agawral MD observation for other suspected disea se ruled out 12/15/2022 Refill Radiation Oncology Lan, Adenocarc inoma of Lindy nasopharynx BALJINDER Sotelo 12/15/2022 Orders Only Pain Medicine Williams, Lyly rela kaylie pain Rogerio, (acute) (chron ic) (Primary Dx) 12/15/2022 Orders Only Pain Medicine Rogerio Kramer MD 12/15/2022 Orders Only Ophthalmology Dawson, Sixth (abducen t) Maya, OD nerve palsy, [...] Lemuel, Adenoid cystic [place] carcinoma of [place], WIND ENERGY MECHANIC nasopharynx, 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) 12/05/2022 Telephone Radiation Oncology Winter Luu MD 12/05/2022 Orders Only Radiation Oncology Winter Luu Adenocarc inoma frankie Rubalcava MD nasopharynx (Pr imary Dx) 12/04/2022 Hospital Encounter Matthew Benitez MD Hess Lorena Garza, WIND ENERGY MECHANIC 12/04/2022 Telephone Head and Neck Antonella, Job Costa, WIND ENERGY MECHANIC 12/04/2022 Multidisciplinary Visit Head and Neck Antonella, Surgery Red Costa, WIND ENERGY MECHANIC 12/04/2022 Telephone Radiation Oncology Maria Luz Cochran RN 12/02/2022 Orders Only Radiation Oncology Lan Adenocarc inoma of Lindy nasopharynx (Pr imary BALJINDER Sotelo Dx) 12/02/2022 Orders Only Radiation Oncology Winter Luu Adenocarc inoAbbie MD nasopharynx (Pr imary Dx) 11/30/2022 Ancillary Procedure Radiology Lemuel, Adenocar cinoma of Lorena nasopharynx Kayla, WIND ENERGY MECHANIC 11/30/2022 Travel 11/27/2022 Ancillary Procedure Radiology Lan, Adenocar cinoma of nasopharynx; 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 BALJINDER Sotelo 11/27/2022 Travel 11/26/2022 Consult Thoracic Medicine Kenny Power Adenocarci jennifer of MD Vaibhav nasopharynx 11/26/2022 Consult Radiation Oncology Winter Luu Adenoyesica inoma of nasopharynx; MD Gini Malignant neopl [...] of Surgery Red Costa, nasopharynx (Pr imary WIND ENERGY MECHANIC Dx) 11/12/2022 Orders Only Head and Neck Yinka, Surgery BALJINDER Branch 11/12/2022 Orders Only Head and Neck McAnulty, Adenocarcinoma of nasopharynx (Primary Dx); Surgery Red M, 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 WIND ENERGY MECHANIC after 06/10/2022 Surgical History Surgery Date Site/Laterality Comments APPENDECTOMY [id number] COLONOSCOPY [id number] CHOLECYSTECTOMY [id number] KNEE ARTHROPLASTY Right SHOULDER SURGERY 050@2010 Left UPPER GASTROINTESTINAL ENDOSCOPY [id number] SECTION, CLASSIC 11/01/1984 - 10/31/1985 PARTIAL HYSTERECTOMY 03/01/2012 - 03/31/2012 MYRINGOTOMY WITH ASPIRATION AND 11/01/2019 - 10/31/2020 INSERTION PE TUBES SLEEVE GASTROPLASTY N/A Medical History Medical History Date Comments Hypertension [id number] Hyperlipidemia [id number] Allergic rhinitis [id number] Fatty liver [id number] Gastric reflux [id number] Gastric ulcer 86560398 Crohn's disease [id number] Gout [id number] Type 2 diabetes mellitus with [id number] hyperglycemia Anxiety 83933653 Chronic obstructive pulmonary disease On home supplemental [...] at Date Recorded Female 11/12/2022 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 Job Start Date Occupation Industry Not on file Not on file Not on file Obstetrics History Last Filed Vital Signs Vital [...] Date Type Specialty Care Team Description 06/17/2023 Lab Lab Marily Garcia, WIND ENERGY MECHANIC [address] [place], [place] [address] (Wo rk) 06/17/2023 Treatment Speech Pathology Monico Poole MD [address] [place] [address] Sheba Olivarez, [facility] WORKROOM CLERK [address] [facility] [address] [place] [address] 06/21/2023 Telephone Endocrinology Angela Lopes AP RN [facility] [place] [address] Freya Kimball RN [facility] [place] [address] 07/22/2023 Appointment Lab Angela Lopes AP RN [facility] [place], [place] [address] (Wo rk) 07/22/2023 Appointment Ophthalmology Suzanne Mcgrath MD [facility] [place], [place] [address] (Wo rk) 07/23/2023 Lab Lab Lindy Montenegro PA [address] [place], [place] [address] (Wo rk) 07/27/2023 Ancillary Procedure Radiology Lindy Montenegro PA [address] [place], [place] [address] (Wo rk) 07/27/2023 Follow-Up Head and Neck Surgery Sheri Agarwal MD [facility] [place], [place] [address] (Wo rk) 07/28/2023 Telemedicine Endocrinology No Andrade MD [address] [place], [place] [address] (Wo rk) Health Maintenance Due Date Last Done Comments COVID-19 Vaccination (4 - Moderna 09/05/2021 07/11/2021, , risk series) 12/03/2020 Medical Devices Implanted Type Area Solid Waste Facility Operator Device Shelf Model / Identifier Expiration Date [...] the results section. CONTROLLED SUBSTANCE Routine 01/20/2023 longterm current Re sults for MONITORING PANEL, URINE [...] Adenoid cystic Result s for 8:28 AM INJECTION OPERATOR carcinoma of this procedure nasopharynx, NOS are in the results section. Results CBC Routine 01/07/2023 Adenoid cystic Results for 8:28 AM INJECTION OPERATOR carcinoma of this procedure nasopharynx, NOS are in the results section. FRACTIONATED BILIRUBIN Routine 01/07/2023 Adenoid cystic Res ults for 8:28 AM INJECTION OPERATOR carcinoma of this procedure nasopharynx, NOS are in the results section. TOTAL PROTEIN Routine 01/07/2023 Adenoid cystic Results for 8:28 AM INJECTION OPERATOR carcinoma of this procedure nasopharynx, NOS are in the results section. ASPARTATE AMINOTRANSFERASE Routine 01/07/2023 Adenoid cystic Results for 8:28 AM INJECTION OPERATOR carcinoma of this procedure nasopharynx, NOS are in the results section. ALANINE AMINOTRANSFERASE Routine 01/07/2023 Adenoid cystic R esults for 8:28 AM INJECTION OPERATOR carcinoma of this procedure nasopharynx, NOS are in the results section. ALKALINE PHOSPHATASE Routine 01/07/2023 Adenoid cystic Resul ts for 8:28 AM INJECTION OPERATOR carcinoma of this procedure nasopharynx, NOS are in the results section. ALBUMIN LEVEL Routine 01/07/2023 Adenoid cystic Results for 8:28 AM INJECTION OPERATOR carcinoma of this procedure nasopharynx, NOS are in the results section. CALCIUM LEVEL TOTAL Routine 01/07/2023 Adenoid cystic Result s for 8:28 AM INJECTION OPERATOR carcinoma of this procedure nasopharynx, NOS are in the results section. .GLOMERULAR FILTRATION Routine 01/07/2023 Adenoid cystic Res ults for RATE 8:28 AM INJECTION OPERATOR carcinoma of this procedure nasopharynx, NOS are in the results section. SERUM CREATININE Routine 01/07/2023 Adenoid cystic Results f or 8:28 AM INJECTION OPERATOR carcinoma of this procedure nasopharynx, NOS are in the results section. ELECTROLYTE PANEL Routine 01/07/2023 Adenoid cystic Results for 8:28 AM INJECTION OPERATOR carcinoma of this procedure nasopharynx, NOS are in the results section. BLOOD UREA NITROGEN Routine 01/07/2023 Adenoid cystic Result s for 8:28 AM INJECTION OPERATOR carcinoma of this procedure nasopharynx, NOS are in the results section. GLUCOSE LEVEL Routine 01/07/2023 Adenoid cystic Results for 8:28 AM INJECTION OPERATOR carcinoma of this procedure nasopharynx, NOS are in the results section. PHOSPHORUS LEVEL Routine 01/07/2023 Adenoid cystic Results f or 8:28 AM INJECTION OPERATOR carcinoma of this procedure nasopharynx, NOS are in the results section. MAGNESIUM LEVEL Routine 01/07/2023 Adenoid cystic Results fo r 8:28 AM INJECTION OPERATOR carcinoma of this procedure nasopharynx, NOS are in the results section. COMPLETE BLOOD COUNT W/ Routine 01/07/2023 Adenoid cystic DIFFERENTIAL 8:28 AM INJECTION OPERATOR carcinoma of nasopharynx, NOS COMPREHENSIVE METABOLIC Routine 01/07/2023 Adenoid cystic PANEL 8:28 AM INJECTION OPERATOR carcinoma of nasopharynx, NOS MANUAL DIFFERENTIAL Routine 01/01/2023 Adenoid cystic Result s for 8:26 AM INJECTION OPERATOR carcinoma of this procedure nasopharynx, NOS are in the results section. Results CBC Routine 01/01/2023 Adenoid cystic Results for 8:26 AM INJECTION OPERATOR carcinoma of this procedure nasopharynx, NOS are in the results section. FRACTIONATED BILIRUBIN Routine 01/01/2023 Adenoid cystic Res ults for 8:26 AM INJECTION OPERATOR carcinoma of this procedure nasopharynx, NOS are in the results section. TOTAL PROTEIN Routine 01/01/2023 Adenoid cystic Results for 8:26 AM INJECTION OPERATOR carcinoma of this procedure nasopharynx, NOS are in the results section. 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 COMPLETE BLOOD COUNT W/ Routine 01/01/2023 Adenoid cystic DIFFERENTIAL 8:26 AM INJECTION OPERATOR carcinoma of nasopharynx, NOS COMPREHENSIVE METABOLIC Routine 01/01/2023 Adenoid cystic PANEL 8:26 AM INJECTION OPERATOR carcinoma of nasopharynx, NOS [place] VISUAL FIELD, Routine 12/29/2022 Sixth (abducent) R esults for INTERMEDIATE - OU - BOTH 10:51 AM INJECTION OPERATOR nerve palsy, lef t this procedure EYES eye are in the results section. OCT, OPTIC NERVE - OU - Routine 12/29/2022 Sixth (abducent) Results for BOTH EYES 10:43 AM INJECTION OPERATOR nerve palsy, left this proce dure eye are in the results section. OCT, RETINA - OU - BOTH Routine 12/29/2022 Sixth (abducent) Results for EYES 10:43 AM INJECTION OPERATOR nerve palsy, left this proce dure eye are in the results section. 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 COMPLETE BLOOD COUNT W/ Routine 12/24/2022 Adenoid cystic DIFFERENTIAL 9:16 AM INJECTION OPERATOR carcinoma of nasopharynx, NOS COMPREHENSIVE METABOLIC Routine 12/24/2022 Adenoid cystic PANEL 9:16 AM INJECTION OPERATOR carcinoma of nasopharynx, NOS COVID-19 (SARS-COV-2) PCR Routine 12/23/2022 Suspected COVID -19 Results for - ASYMPTOMATIC - MC 12:01 PM INJECTION OPERATOR this pro cedure are in the results section. POC GLUCOSE SCREEN Routine 12/15/2022 Results f or 6:07 PM INJECTION OPERATOR this procedure are in the results section. POC GLUCOSE SCREEN Routine 12/15/2022 Results f or 12:52 PM INJECTION OPERATOR this procedure are in the results section. OCT, OPTIC NERVE - OU - Routine 12/15/2022 Diplopia Resu lts for BOTH EYES 10:37 AM INJECTION OPERATOR this procedure are in the results section. OCT, RETINA - OU - BOTH Routine 12/15/2022 Diplopia Resu lts for EYES 10:37 AM INJECTION OPERATOR this procedure are in the results section. FUNDUS PHOTOS - OU - BOTH Routine 12/15/2022 Diplopia Re sults for EYES 10:37 AM INJECTION OPERATOR this procedure are in the results section. 3D DENTAL IMAGING (ICAT) Routine 12/15/2022 Encounter for Re sults for 8:42 AM INJECTION OPERATOR observation for this procedu re other suspected are in the disease ruled out results section. POC GLUCOSE SCREEN Routine 12/15/2022 Results f or 7:19 AM INJECTION OPERATOR this procedure are in the results section. POC GLUCOSE SCREEN Routine 12/15/2022 Results f or 6:12 AM INJECTION OPERATOR this procedure are in the results section. MANUAL DIFFERENTIAL AM 12/15/2022 Results for 3:44 AM INJECTION OPERATOR this procedure are in the results section. Results CBC AM 12/15/2022 Results for 3:44 AM INJECTION OPERATOR this procedure are in the results section. CALCIUM LEVEL TOTAL AM 12/15/2022 Results for 3:44 AM INJECTION OPERATOR this procedure are in the results section. .GLOMERULAR FILTRATION AM 12/15/2022 Resul ts for RATE 3:44 AM INJECTION OPERATOR this procedure are in the results section. SERUM CREATININE AM 12/15/2022 Results for 3:44 AM INJECTION OPERATOR this procedure are in the results section. ELECTROLYTE PANEL AM 12/15/2022 Results fo r 3:44 AM INJECTION OPERATOR this procedure are in the results section. BLOOD UREA NITROGEN AM 12/15/2022 Results for 3:44 AM INJECTION OPERATOR this procedure are in the results section. GLUCOSE LEVEL AM 12/15/2022 Results for 3:44 AM INJECTION OPERATOR this procedure are in the results section. COMPLETE BLOOD COUNT W/ AM 12/15/2022 DIFFERENTIAL 3:44 AM INJECTION OPERATOR PHOSPHORUS LEVEL AM 12/15/2022 Results for 3:44 AM INJECTION OPERATOR this procedure are in the results section. MAGNESIUM LEVEL AM 12/15/2022 Results for 3:44 AM INJECTION OPERATOR this procedure are in the results section. BASIC METABOLIC PANEL, AM 12/15/2022 CALCIUM TOTAL 3:44 AM INJECTION OPERATOR POC GLUCOSE SCREEN Routine 12/15/2022 Results f or 2:28 AM INJECTION OPERATOR this procedure are in the results section. POC GLUCOSE SCREEN Routine 12/14/2022 Results f or 10:04 PM INJECTION OPERATOR this procedure are in the results section. POC GLUCOSE SCREEN Routine 12/14/2022 Results f or 5:26 PM INJECTION OPERATOR this procedure are in the results section. POC GLUCOSE SCREEN Routine 12/14/2022 Results f or 4:14 PM INJECTION OPERATOR this procedure are in the results section. FL MODIFIED BARIUM SWALLOW Routine 12/14/2022 R esults for W SPEECH 2:37 PM INJECTION OPERATOR this procedure are in the results section. POC GLUCOSE SCREEN Routine 12/14/2022 Results f or 12:08 PM INJECTION OPERATOR this procedure are in the results section. GENERAL LABORATORY ADD ON Routine 12/14/2022 Re sults for TEST 8:03 AM INJECTION OPERATOR this procedure are in the results section. POC GLUCOSE SCREEN Routine 12/14/2022 Results f or 7:25 AM INJECTION OPERATOR this procedure are in the results section. POC GLUCOSE SCREEN Routine 12/14/2022 Results f or 5:55 AM INJECTION OPERATOR this procedure are in the results section. FRACTIONATED BILIRUBIN AM 12/14/2022 Resul ts for 4:46 AM INJECTION OPERATOR this procedure are in the results section. TOTAL PROTEIN AM 12/14/2022 Results for 4:46 AM INJECTION OPERATOR this procedure are in the results section. ASPARTATE AMINOTRANSFERASE AM 12/14/2022 R esults for 4:46 AM INJECTION OPERATOR this procedure are in the results section. ALANINE AMINOTRANSFERASE AM 12/14/2022 Res ults for 4:46 AM INJECTION OPERATOR this procedure are in the results section. ALKALINE PHOSPHATASE AM 12/14/2022 Results for 4:46 AM INJECTION OPERATOR this procedure are in the results section. ALBUMIN LEVEL AM 12/14/2022 Results for 4:46 AM INJECTION OPERATOR this procedure are in the results section. MANUAL DIFFERENTIAL AM 12/14/2022 Results for 4:46 AM INJECTION OPERATOR this procedure are in the results section. Results CBC AM 12/14/2022 Results for 4:46 AM INJECTION OPERATOR this procedure are in the results section. CALCIUM LEVEL TOTAL AM 12/14/2022 Results for 4:46 AM INJECTION OPERATOR this procedure are in the results section. .GLOMERULAR FILTRATION AM 12/14/2022 Resul ts for RATE 4:46 AM INJECTION OPERATOR this procedure are in the results section. SERUM CREATININE AM 12/14/2022 Results for 4:46 AM INJECTION OPERATOR this procedure are in the results section. ELECTROLYTE PANEL AM 12/14/2022 Results fo r 4:46 AM INJECTION OPERATOR this procedure are in the results section. BLOOD UREA NITROGEN AM 12/14/2022 Results for 4:46 AM INJECTION OPERATOR this procedure are in the results section. GLUCOSE LEVEL AM 12/14/2022 Results for 4:46 AM INJECTION OPERATOR this procedure are in the results section. COMPLETE BLOOD COUNT W/ AM 12/14/2022 DIFFERENTIAL 4:46 AM INJECTION OPERATOR PHOSPHORUS LEVEL AM 12/14/2022 Results for 4:46 AM INJECTION OPERATOR this procedure are in the results section. MAGNESIUM LEVEL AM 12/14/2022 Results for 4:46 AM INJECTION OPERATOR this procedure are in the results section. BASIC METABOLIC PANEL, AM 12/14/2022 CALCIUM TOTAL 4:46 AM INJECTION OPERATOR POC GLUCOSE SCREEN Routine 12/14/2022 Results f or 1:36 AM INJECTION OPERATOR this procedure are in the results section. POC GLUCOSE SCREEN Routine 12/13/2022 Results f or 9:56 PM INJECTION OPERATOR this procedure are in the results section. POC GLUCOSE SCREEN Routine 12/13/2022 Results f or 6:31 PM INJECTION OPERATOR this procedure are in the results section. POC GLUCOSE SCREEN Routine 12/13/2022 Results f or 1:24 PM INJECTION OPERATOR this procedure are in the results section. POC GLUCOSE SCREEN Routine 12/13/2022 Results f or 8:02 AM INJECTION OPERATOR this procedure are in the results section. POC GLUCOSE SCREEN Routine 12/13/2022 Results f or 5:58 AM INJECTION OPERATOR this procedure are in the results section. POC GLUCOSE SCREEN Routine 12/13/2022 Results f or 3:24 AM INJECTION OPERATOR this procedure are in the results section. MANUAL DIFFERENTIAL AM 12/13/2022 Results for 3:12 AM INJECTION OPERATOR this procedure are in the results section. Results CBC AM 12/13/2022 Results for 3:12 AM INJECTION OPERATOR this procedure are in the results section. CALCIUM LEVEL TOTAL AM 12/13/2022 Results for 3:12 AM INJECTION OPERATOR this procedure are in the results section. .GLOMERULAR FILTRATION AM 12/13/2022 Resul ts for RATE 3:12 AM INJECTION OPERATOR this procedure are in the results section. SERUM CREATININE AM 12/13/2022 Results for 3:12 AM INJECTION OPERATOR this procedure are in the results section. ELECTROLYTE PANEL AM 12/13/2022 Results fo r 3:12 AM INJECTION OPERATOR this procedure are in the results section. BLOOD UREA NITROGEN AM 12/13/2022 Results for 3:12 AM INJECTION OPERATOR this procedure are in the results section. GLUCOSE LEVEL AM 12/13/2022 Results for 3:12 AM INJECTION OPERATOR this procedure are in the results section. COMPLETE BLOOD COUNT W/ AM 12/13/2022 DIFFERENTIAL 3:12 AM INJECTION OPERATOR PHOSPHORUS LEVEL AM 12/13/2022 Results for 3:12 AM INJECTION OPERATOR this procedure are in the results section. MAGNESIUM LEVEL AM 12/13/2022 Results for 3:12 AM INJECTION OPERATOR this procedure are in the results section. BASIC METABOLIC PANEL, AM 12/13/2022 CALCIUM TOTAL 3:12 AM INJECTION OPERATOR POC GLUCOSE SCREEN Routine 12/12/2022 Results f or 9:43 PM INJECTION OPERATOR this procedure are in the results section. POC GLUCOSE SCREEN Routine 12/12/2022 Results f or 6:16 PM INJECTION OPERATOR this procedure are in the results section. POC GLUCOSE SCREEN Routine 12/12/2022 Results f or 12:52 PM INJECTION OPERATOR this procedure are in the results section. POC GLUCOSE SCREEN Routine 12/12/2022 Results f or 7:47 AM INJECTION OPERATOR this procedure are in the results section. POC GLUCOSE SCREEN Routine 12/12/2022 Results f or 5:52 AM INJECTION OPERATOR this procedure are in the results section. MANUAL DIFFERENTIAL AM 12/12/2022 Results for 4:30 AM INJECTION OPERATOR this procedure are in the results section. Results CBC AM 12/12/2022 Results for 4:30 AM INJECTION OPERATOR this procedure are in the results section. CALCIUM LEVEL TOTAL AM 12/12/2022 Results for 4:30 AM INJECTION OPERATOR this procedure are in the results section. .GLOMERULAR FILTRATION AM 12/12/2022 Resul ts for RATE 4:30 AM INJECTION OPERATOR this procedure are in the results section. SERUM CREATININE AM 12/12/2022 Results for 4:30 AM INJECTION OPERATOR this procedure are in the results section. ELECTROLYTE PANEL AM 12/12/2022 Results fo r 4:30 AM INJECTION OPERATOR this procedure are in the results section. BLOOD UREA NITROGEN AM 12/12/2022 Results for 4:30 AM INJECTION OPERATOR this procedure are in the results section. GLUCOSE LEVEL AM 12/12/2022 Results for 4:30 AM INJECTION OPERATOR this procedure are in the results section. COMPLETE BLOOD COUNT W/ AM 12/12/2022 DIFFERENTIAL 4:30 AM INJECTION OPERATOR PHOSPHORUS LEVEL AM 12/12/2022 Results for 4:30 AM INJECTION OPERATOR this procedure are in the results section. MAGNESIUM LEVEL AM 12/12/2022 Results for 4:30 AM INJECTION OPERATOR this procedure are in the results section. BASIC METABOLIC PANEL, AM 12/12/2022 CALCIUM TOTAL 4:30 AM INJECTION OPERATOR POC GLUCOSE SCREEN Routine 12/12/2022 Results f or 2:06 AM INJECTION OPERATOR this procedure are in the results section. POC GLUCOSE SCREEN Routine 12/11/2022 Results f or 10:01 PM INJECTION OPERATOR this procedure are in the results section. LACTIC ACID, VENOUS Timed Study 12/11/2022 Results for 9:50 PM INJECTION OPERATOR this procedure are in the results section. LIPASE LEVEL STAT 12/11/2022 Results for 6:21 PM INJECTION OPERATOR this procedure are in the results section. VENOUS BLOOD GAS STAT 12/11/2022 Results for 6:21 PM INJECTION OPERATOR this procedure are in the results section. POC GLUCOSE SCREEN Routine 12/11/2022 Results f or 6:10 PM INJECTION OPERATOR this procedure are in the results section. GENERAL LABORATORY ADD ON Routine 12/11/2022 Re sults for TEST 5:39 PM INJECTION OPERATOR this procedure are in the results section. KETONE BODIES QUALITATIVE STAT 12/11/2022 Re sults for 5:19 PM INJECTION OPERATOR this procedure are in the results section. POC GLUCOSE SCREEN Routine 12/11/2022 Results f or 4:51 PM INJECTION OPERATOR this procedure are in the results section. LIPASE LEVEL STAT 12/11/2022 Results for 4:33 PM INJECTION OPERATOR this procedure are in the results section. ELECTROLYTE PANEL STAT 12/11/2022 Results fo r 4:33 PM INJECTION OPERATOR this procedure are in the results section. LACTIC ACID, VENOUS Timed Study 12/11/2022 Results for 4:33 PM INJECTION OPERATOR this procedure are in the results section. POC GLUCOSE SCREEN Routine 12/11/2022 Results f or 3:34 PM INJECTION OPERATOR this procedure are in the results section. POC CRITICAL Routine 12/11/2022 Results for 3:34 PM INJECTION OPERATOR this procedure are in the results section. POC GLUCOSE SCREEN Routine 12/11/2022 Results f or 2:33 PM INJECTION OPERATOR this procedure are in the results section. POC CRITICAL Routine 12/11/2022 Results for 2:33 PM INJECTION OPERATOR this procedure are in the results section. POC GLUCOSE SCREEN Routine 12/11/2022 Results f or 12:35 PM INJECTION OPERATOR this procedure are in the results section. POC GLUCOSE SCREEN Routine 12/11/2022 Results f or 8:14 AM INJECTION OPERATOR this procedure are in the results section. LACTIC ACID, VENOUS Routine 12/11/2022 Results for 4:37 AM INJECTION OPERATOR this procedure are in the results section. MANUAL DIFFERENTIAL AM 12/11/2022 Results for 4:30 AM INJECTION OPERATOR this procedure are in the results section. Results CBC AM 12/11/2022 Results for 4:30 AM INJECTION OPERATOR this procedure are in the results section. CALCIUM LEVEL TOTAL AM 12/11/2022 Results for 4:30 AM INJECTION OPERATOR this procedure are in the results section. .GLOMERULAR FILTRATION AM 12/11/2022 Resul ts for RATE 4:30 AM INJECTION OPERATOR this procedure are in the results section. SERUM CREATININE AM 12/11/2022 Results for 4:30 AM INJECTION OPERATOR this procedure are in the results section. ELECTROLYTE PANEL AM 12/11/2022 Results fo r 4:30 AM INJECTION OPERATOR this procedure are in the results section. BLOOD UREA NITROGEN AM 12/11/2022 Results for 4:30 AM INJECTION OPERATOR this procedure are in the results section. GLUCOSE LEVEL AM 12/11/2022 Results for 4:30 AM INJECTION OPERATOR this procedure are in the results section. COMPLETE BLOOD COUNT W/ AM 12/11/2022 DIFFERENTIAL 4:30 AM INJECTION OPERATOR PHOSPHORUS LEVEL AM 12/11/2022 Results for 4:30 AM INJECTION OPERATOR this procedure are in the results section. MAGNESIUM LEVEL AM 12/11/2022 Results for 4:30 AM INJECTION OPERATOR this procedure are in the results section. BASIC METABOLIC PANEL, AM 12/11/2022 CALCIUM TOTAL 4:30 AM INJECTION OPERATOR POC GLUCOSE SCREEN Routine 12/11/2022 Results f or 1:20 AM INJECTION OPERATOR this procedure are in the results section. POC GLUCOSE SCREEN Routine 12/10/2022 Results f or 10:00 PM INJECTION OPERATOR this procedure are in the results section. POC GLUCOSE SCREEN Routine 12/10/2022 Results f or 6:29 PM INJECTION OPERATOR this procedure are in the results section. POC GLUCOSE SCREEN Routine 12/10/2022 Results f or 5:20 PM INJECTION OPERATOR this procedure are in the results section. CT HEAD WO CONTRAST STAT 12/10/2022 Results for 3:21 PM INJECTION OPERATOR this procedure are in the results section. POC GLUCOSE SCREEN Routine 12/10/2022 Results f or 1:45 PM INJECTION OPERATOR this procedure are in the results section. POC GLUCOSE SCREEN Routine 12/10/2022 Results f or 11:35 AM INJECTION OPERATOR this procedure are in the results section. POC GLUCOSE SCREEN Routine 12/10/2022 Results f or 7:30 AM INJECTION OPERATOR this procedure are in the results section. URINALYSIS WITH Routine 12/10/2022 Results for MICROSCOPIC IF INDICATED 6:13 AM INJECTION OPERATOR thi s procedure are in the results section. URINE CULTURE Routine 12/10/2022 Results for 6:13 AM INJECTION OPERATOR this procedure are in the results section. MANUAL DIFFERENTIAL STAT 12/10/2022 Results for 5:13 AM INJECTION OPERATOR this procedure are in the results section. Results CBC STAT 12/10/2022 Results for 5:13 AM INJECTION OPERATOR this procedure are in the results section. CALCIUM LEVEL TOTAL AM 12/10/2022 Results for 5:13 AM INJECTION OPERATOR this procedure are in the results section. .GLOMERULAR FILTRATION AM 12/10/2022 Resul ts for RATE 5:13 AM INJECTION OPERATOR this procedure are in the results section. SERUM CREATININE AM 12/10/2022 Results for 5:13 AM INJECTION OPERATOR this procedure are in the results section. ELECTROLYTE PANEL AM 12/10/2022 Results fo r 5:13 AM INJECTION OPERATOR this procedure are in the results section. BLOOD UREA NITROGEN AM 12/10/2022 Results for 5:13 AM INJECTION OPERATOR this procedure are in the results section. GLUCOSE LEVEL AM 12/10/2022 Results for 5:13 AM INJECTION OPERATOR this procedure are in the results section. HEMOGLOBIN A1C Routine 12/10/2022 Results for 5:13 AM INJECTION OPERATOR this procedure are in the results section. COMPLETE BLOOD COUNT W/ AM 12/10/2022 DIFFERENTIAL 5:13 AM INJECTION OPERATOR PHOSPHORUS LEVEL AM 12/10/2022 Results for 5:13 AM INJECTION OPERATOR this procedure are in the results section. MAGNESIUM LEVEL AM 12/10/2022 Results for 5:13 AM INJECTION OPERATOR this procedure are in the results section. BASIC METABOLIC PANEL, AM 12/10/2022 CALCIUM TOTAL 5:13 AM INJECTION OPERATOR POC GLUCOSE SCREEN Routine 12/10/2022 Results f or 1:38 AM INJECTION OPERATOR this procedure are in the results section. POC GLUCOSE SCREEN Routine 12/09/2022 Results f or 11:18 PM INJECTION OPERATOR this procedure are in the results section. POC VENOUS BLOOD GAS + Routine 12/09/2022 Resul ts for LACTATE 9:36 PM INJECTION OPERATOR this procedure are in the results section. FRACTIONATED BILIRUBIN Routine 12/09/2022 Resul ts for 6:01 PM INJECTION OPERATOR this procedure are in the results section. TOTAL PROTEIN Routine 12/09/2022 Results for 6:01 PM INJECTION OPERATOR this procedure are in the results section. ASPARTATE AMINOTRANSFERASE Routine 12/09/2022 R esults for 6:01 PM INJECTION OPERATOR this procedure are in the results section. ALANINE AMINOTRANSFERASE Routine 12/09/2022 Res ults for 6:01 PM INJECTION OPERATOR this procedure are in the results section. ALKALINE PHOSPHATASE Routine 12/09/2022 Results for 6:01 PM INJECTION OPERATOR this procedure are in the results section. ALBUMIN LEVEL Routine 12/09/2022 Results for 6:01 PM INJECTION OPERATOR this procedure are in the results section. CALCIUM LEVEL TOTAL Routine 12/09/2022 Results for 6:01 PM INJECTION OPERATOR this procedure are in the results section. .GLOMERULAR FILTRATION Routine 12/09/2022 Resul ts for RATE 6:01 PM INJECTION OPERATOR this procedure are in the results section. SERUM CREATININE Routine 12/09/2022 Results for 6:01 PM INJECTION OPERATOR this procedure are in the results section. ELECTROLYTE PANEL Routine 12/09/2022 Results fo r 6:01 PM INJECTION OPERATOR this procedure are in the results section. BLOOD UREA NITROGEN Routine 12/09/2022 Results for 6:01 PM INJECTION OPERATOR this procedure are in the results section. GLUCOSE LEVEL Routine 12/09/2022 Results for 6:01 PM INJECTION OPERATOR this procedure are in the results section. MANUAL DIFFERENTIAL STAT 12/09/2022 Results for 6:01 PM INJECTION OPERATOR this procedure are in the results section. Results CBC STAT 12/09/2022 Results for 6:01 PM INJECTION OPERATOR this procedure are in the results section. LACTATE DEHYDROGENASE Routine 12/09/2022 Result s for 6:01 PM INJECTION OPERATOR this procedure are in the results section. APTT Routine 12/09/2022 Results for 6:01 PM INJECTION OPERATOR this procedure are in the results section. PROTHROMBIN TIME Routine 12/09/2022 Results for 6:01 PM INJECTION OPERATOR this procedure are in the results section. PHOSPHORUS LEVEL Routine 12/09/2022 Results for 6:01 PM INJECTION OPERATOR this procedure are in the results section. MAGNESIUM LEVEL Routine 12/09/2022 Results for 6:01 PM INJECTION OPERATOR this procedure are in the results section. COMPREHENSIVE METABOLIC Routine 12/09/2022 PANEL 6:01 PM INJECTION OPERATOR COMPLETE BLOOD COUNT W/ Routine 12/09/2022 DIFFERENTIAL 6:01 PM INJECTION OPERATOR AMMONIA LEVEL Routine 12/09/2022 Results for 6:01 PM INJECTION OPERATOR this procedure are in the results section. COVID-19 (SARS-COV-2)PCR Routine 12/09/2022 R esults for - ASYMPTOMATIC - LT 6:01 PM INJECTION OPERATOR this pro cedure are in the results section. HP MOLECULAR BLOOD Routine 12/04/2022 Results f or COLLECTION 10:56 AM INJECTION OPERATOR this procedure are in the results section. MISSY GRIFFIN SOLID TUMOR GENOMIC Routine 12/04/2022 ASSAY FUSIONS 2018 10:56 AM INJECTION OPERATOR INTERPRETATION AND REPORT HP MDA CHRISTINE MUTATION Routine 12/04/2022 ANALYSIS PRECISION PANEL 10:56 AM INJECTION OPERATOR REPORT MRI SKULL BASE WITH AND Routine 11/30/2022 Adenocarcinoma of Results for WITHOUT CONTRAST 11:12 AM INJECTION OPERATOR nasopharynx this proced ure are in the results section. PETCT CONTRAST ENHANCED Routine 11/27/2022 Adenocarcinoma of Results for INITIAL TREATMENT STRATEGY 3:57 PM INJECTION OPERATOR nasop harynx this procedure Malignant neoplasm are in th e of overlapping results sites of section. nasopharynx POC GLUCOSE SCREEN Routine 11/27/2022 Results f or 1:06 PM INJECTION OPERATOR this procedure are in the results section. POC GLUCOSE SCREEN Routine 11/27/2022 Results f or 12:29 PM INJECTION OPERATOR this procedure are in the results section. FRACTIONATED BILIRUBIN Routine 11/26/2022 Adenocarcinoma of Results for 1:07 PM INJECTION OPERATOR nasopharynx this procedure are in the results section. TOTAL PROTEIN Routine 11/26/2022 Adenocarcinoma of Results f or 1:07 PM INJECTION OPERATOR nasopharynx this procedure are in the results section. ASPARTATE AMINOTRANSFERASE Routine 11/26/2022 Adenocarcinoma of Results for 1:07 PM INJECTION OPERATOR nasopharynx this procedure are in the results section. ALANINE AMINOTRANSFERASE Routine 11/26/2022 Adenocarcinoma o f Results for 1:07 PM INJECTION OPERATOR nasopharynx this procedure are in the results section. ALKALINE PHOSPHATASE Routine 11/26/2022 Adenocarcinoma of Re sults for 1:07 PM INJECTION OPERATOR nasopharynx this procedure are in the results section. ALBUMIN LEVEL Routine 11/26/2022 Adenocarcinoma of Results f or 1:07 PM INJECTION OPERATOR nasopharynx this procedure are in the results section. CALCIUM LEVEL TOTAL Routine 11/26/2022 Adenocarcinoma of Res ults for 1:07 PM INJECTION OPERATOR nasopharynx this procedure are in the results section. .GLOMERULAR FILTRATION Routine 11/26/2022 Adenocarcinoma of Results for RATE 1:07 PM INJECTION OPERATOR nasopharynx this procedure are in the results section. SERUM CREATININE Routine 11/26/2022 Adenocarcinoma of Result s for 1:07 PM INJECTION OPERATOR nasopharynx this procedure are in the results section. ELECTROLYTE PANEL Routine 11/26/2022 Adenocarcinoma of Resul ts for 1:07 PM INJECTION OPERATOR nasopharynx this procedure are in the results section. BLOOD UREA NITROGEN Routine 11/26/2022 Adenocarcinoma of Res ults for 1:07 PM INJECTION OPERATOR nasopharynx this procedure are in the results section. GLUCOSE LEVEL Routine 11/26/2022 Adenocarcinoma of Results f or 1:07 PM INJECTION OPERATOR nasopharynx this procedure are in the results section. MANUAL DIFFERENTIAL Routine 11/26/2022 Adenocarcinoma of Res ults for 1:07 PM INJECTION OPERATOR nasopharynx this procedure are in the results section. Results CBC Routine 11/26/2022 Adenocarcinoma of Results fo r 1:07 PM INJECTION OPERATOR nasopharynx this procedure are in the results section. PROTHROMBIN TIME Routine 11/26/2022 Adenocarcinoma of Result s for 1:07 PM INJECTION OPERATOR nasopharynx this procedure are in the results section. APTT Routine 11/26/2022 Adenocarcinoma of Results fo r 1:07 PM INJECTION OPERATOR nasopharynx this procedure are in the results section. THYROID STIMULATING Routine 11/26/2022 Adenocarcinoma of Res ults for HORMONE 1:07 PM INJECTION OPERATOR nasopharynx this procedure are in the results section. VITAMIN D 25 HYDROXY LEVEL Routine 11/26/2022 Adenocarcinoma of Results for 1:07 PM INJECTION OPERATOR nasopharynx this procedure are in the results section. URIC ACID Routine 11/26/2022 Adenocarcinoma of Results fo r 1:07 PM INJECTION OPERATOR nasopharynx this procedure are in the results section. PHOSPHORUS LEVEL Routine 11/26/2022 Adenocarcinoma of Result s for 1:07 PM INJECTION OPERATOR nasopharynx this procedure are in the results section. MAGNESIUM LEVEL Routine 11/26/2022 Adenocarcinoma of Results for 1:07 PM INJECTION OPERATOR nasopharynx this procedure are in the results section. LACTATE DEHYDROGENASE Routine 11/26/2022 Adenocarcinoma of R esults for 1:07 PM INJECTION OPERATOR nasopharynx this procedure are in the results section. FREE THYROXINE Routine 11/26/2022 Adenocarcinoma of Results for 1:07 PM INJECTION OPERATOR nasopharynx this procedure are in the results section. COMPREHENSIVE METABOLIC Routine 11/26/2022 Adenocarcinoma of PANEL 1:07 PM INJECTION OPERATOR nasopharynx COMPLETE BLOOD COUNT W/ Routine 11/26/2022 Adenocarcinoma of DIFFERENTIAL 1:07 PM INJECTION OPERATOR nasopharynx NGS BLOOD CONTROL Routine 11/26/2022 Adenocarcinoma of Re sults for 1:07 PM INJECTION OPERATOR nasopharynx this procedure are in the results section. ANA CRISTINA IHC HER2/ARCENIO MATERIAL Routine 11/26/2022 Adenocarcinoma o f REQUEST 12:43 PM INJECTION OPERATOR nasopharynx AP IHC PD-L1 MATERIAL Routine 11/26/2022 Adenocarcinoma of REQUEST 12:43 PM INJECTION OPERATOR nasopharynx ANA CRISTINA GRIFFIN PTEN MUTATION Routine 11/26/2022 Adenocarcinoma of Res ults for MATERIAL REQUEST 12:43 PM INJECTION OPERATOR nasopharynx this proced ure are in the results section. ANA CRISTINA GRIFFIN MTOR MATERIAL Routine 11/26/2022 Adenocarcinoma of Res ults for REQUEST 12:43 PM INJECTION OPERATOR nasopharynx this procedure are in the results section. ANA CRISTINA GRIFFIN ERBB2 MUTATION Routine 11/26/2022 Adenocarcinoma of Re sults for ANALAYSIS MATERIAL REQUEST 12:43 PM INJECTION OPERATOR nasopharynx t his procedure are in the results section. ANA CRISTINA GRIFFIN EGFR MUTATION Routine 11/26/2022 Adenocarcinoma of Res ults for MATERIAL REQUEST 12:43 PM INJECTION OPERATOR nasopharynx this proced ure are in the results section. ANA CRISTINA GRIFFIN ALK MUTATION Routine 11/26/2022 Adenocarcinoma of Resu lts for ANALAYSIS MATERIAL REQUEST 12:43 PM INJECTION OPERATOR nasopharynx t his procedure are in the results section. ANA CRISTINA GRIFFIN NTRK3 FUSION Routine 11/26/2022 Adenocarcinoma of Resu lts for ANALYSIS MATERIAL REQUEST 12:43 PM INJECTION OPERATOR nasopharynx th is procedure are in the results section. ANA CRISTINA GRIFFIN NTRK2 FUSION Routine 11/26/2022 Adenocarcinoma of Resu lts for ANALYSIS MATERIAL REQUEST 12:43 PM INJECTION OPERATOR nasopharynx th is procedure are in the results section. AN ACRISTINA GRIFFIN NTRK1 FUSION Routine 11/26/2022 Adenocarcinoma of Resu lts for ANALYSIS MATERIAL REQUEST 12:43 PM INJECTION OPERATOR nasopharynx th is procedure are in the results section. MANUAL DIFFERENTIAL Routine 11/17/2022 Adenocarcinoma of Res ults for 12:11 PM INJECTION OPERATOR nasopharynx this procedure are in the results section. Results CBC Routine 11/17/2022 Adenocarcinoma of Results fo r 12:11 PM INJECTION OPERATOR nasopharynx this procedure are in the results section. FRACTIONATED BILIRUBIN Routine 11/17/2022 Adenocarcinoma of Results for 12:11 PM INJECTION OPERATOR nasopharynx this procedure are in the results section. TOTAL PROTEIN Routine 11/17/2022 Adenocarcinoma of Results f or 12:11 PM INJECTION OPERATOR nasopharynx this procedure are in the results section. ASPARTATE AMINOTRANSFERASE Routine 11/17/2022 Adenocarcinoma of Results for 12:11 PM INJECTION OPERATOR nasopharynx this procedure are in the results section. ALANINE AMINOTRANSFERASE Routine 11/17/2022 Adenocarcinoma o f Results for 12:11 PM INJECTION OPERATOR nasopharynx this procedure are in the results section. ALKALINE PHOSPHATASE Routine 11/17/2022 Adenocarcinoma of Re sults for 12:11 PM INJECTION OPERATOR nasopharynx this procedure are in the results section. ALBUMIN LEVEL Routine 11/17/2022 Adenocarcinoma of Results f or 12:11 PM INJECTION OPERATOR nasopharynx this procedure are in the results section. CALCIUM LEVEL TOTAL Routine 11/17/2022 Adenocarcinoma of Res ults for 12:11 PM INJECTION OPERATOR nasopharynx this procedure are in the results section. .GLOMERULAR FILTRATION Routine 11/17/2022 Adenocarcinoma of Results for RATE 12:11 PM INJECTION OPERATOR nasopharynx this procedure are in the results section. SERUM CREATININE Routine 11/17/2022 Adenocarcinoma of Result s for 12:11 PM INJECTION OPERATOR nasopharynx this procedure are in the results section. ELECTROLYTE PANEL Routine 11/17/2022 Adenocarcinoma of Resul ts for 12:11 PM INJECTION OPERATOR nasopharynx this procedure are in the results section. BLOOD UREA NITROGEN Routine 11/17/2022 Adenocarcinoma of Res ults for 12:11 PM INJECTION OPERATOR nasopharynx this procedure are in the results section. GLUCOSE LEVEL Routine 11/17/2022 Adenocarcinoma of Results f or 12:11 PM INJECTION OPERATOR nasopharynx this procedure are in the results section. PROLACTIN Routine 11/17/2022 Adenocarcinoma of Results fo r 12:11 PM INJECTION OPERATOR nasopharynx this procedure are in the results section. INSULIN LIKE GROWTH FACTOR Routine 11/17/2022 Adenocarcinoma of Results for 1 12:11 PM INJECTION OPERATOR nasopharynx this procedure are in the results section. TOTAL T3 Routine 11/17/2022 Adenocarcinoma of Results fo r 12:11 PM INJECTION OPERATOR nasopharynx this procedure are in the results section. FREE THYROXINE Routine 11/17/2022 Adenocarcinoma of Results for 12:11 PM INJECTION OPERATOR nasopharynx this procedure are in the results section. THYROID STIMULATING Routine 11/17/2022 Adenocarcinoma of Res ults for HORMONE 12:11 PM INJECTION OPERATOR nasopharynx this procedure are in the results section. LUTEINIZING HORMONE Routine 11/17/2022 Adenocarcinoma of Res ults for 12:11 PM INJECTION OPERATOR nasopharynx this procedure are in the results section. FOLLICLE STIMULATING Routine 11/17/2022 Adenocarcinoma of Re sults for HORMONE LEVEL 12:11 PM INJECTION OPERATOR nasopharynx this procedure are in the results section. TESTOSTERONE LEVEL Routine 11/17/2022 Adenocarcinoma of Resu lts for 12:11 PM INJECTION OPERATOR nasopharynx this procedure are in the results section. ESTRADIOL LEVEL Routine 11/17/2022 Adenocarcinoma of Results for 12:11 PM INJECTION OPERATOR nasopharynx this procedure are in the results section. ADRENOCORTICOTROPIC Routine 11/17/2022 Adenocarcinoma of Res ults for HORMONE 12:11 PM INJECTION OPERATOR nasopharynx this procedure are in the results section. CORTISOL Routine 11/17/2022 Adenocarcinoma of Results fo r 12:11 PM INJECTION OPERATOR nasopharynx this procedure are in the results section. PROTHROMBIN TIME Routine 11/17/2022 Adenocarcinoma of Result s for 12:11 PM INJECTION OPERATOR nasopharynx this procedure are in the results section. APTT Routine 11/17/2022 Adenocarcinoma of Results fo r 12:11 PM INJECTION OPERATOR nasopharynx this procedure are in the results section. COMPLETE BLOOD COUNT W/ Routine 11/17/2022 Adenocarcinoma of DIFFERENTIAL 12:11 PM INJECTION OPERATOR nasopharynx COMPREHENSIVE METABOLIC Routine 11/17/2022 Adenocarcinoma of PANEL 12:11 PM INJECTION OPERATOR nasopharynx HEPATITIS C VIRUS AB Routine 11/17/2022 Adenocarcinoma of Re sults for SCREEN W/REFLEX HCV PCR 12:11 PM INJECTION OPERATOR nasopharynx this procedure are in the results section. PATHOLOGY OUTSIDE Routine 10/16/2022 Results fo r INTERPRETATION this procedur e are in the results section. after 06/10/2022 Results MRI Orbits with and without Contrast [...] follow-up recommended [facility]. No suspicious lymph nodes. Winter Luu MD IMG MRI ORDERABLES .Serum Creatinine (04/22/2023 12:28 PM CDT)Only the most recent of44 results within the time period is included. athologist Signature Creatinine 0.80 0.51 - 0.95 [place] mg/dL Comment: Testing performed at [facility], [address] [place] [address] Specimen Anatomical Collection Method Collection Time Receive d Time (Source) Location / / Volume Laterality Blood 04/22/2023 12:28 04/22/2023 PM CDT 12:29 PM CDT Narrative [place] - 04/22/2023 1:04 PM CDT Coordinate all on same day. Ok to schedu le 1-2 weeks following 04/14 to coordinate appts Winter Luu MD LAB BLOOD ORDERABLES Performing Organization Address City/State/ZIP Code Phon e [place] [facility] [place] [address] [place] [address] (ABNORMAL) .CBC (04/22/2023 12:28 PM CDT)Only the most recent of44 resultswithin the time period is included. athologist Signature WBC 6.5 4.0 - 11.0 [place] K/uL Comment: All components of the CBC perfo rmed at [facility], [address] [place] [address] 77 3 RBC 4.39 4.00 - 5.50 M/uL [place] Comment: All components of the CBC perfo rmed at [facility], [address] [place] [address], [place] 77 3 Hgb 14.3 12.0 - 16.0 gm/dL [place] Comment: As part of CBC or as an individ ual orderable testing performed at [facility], [address] [place] [address], [place] [address] Hct 43.7 37.0 - 47.0 % [place] Comment: As part of CBC testing performe d at [facility], [address] [place] [address] MCV 100 (H) 82 - 98 fL [place] Comment: As part of CBC testing performe d at [facility], [address] [place] [address] MCH 32.6 (H) 27.0 - 31.0 pg [place] Comment: As part of CBC testing performe d at [facility], [address] [place] [address] MCHC 32.7 31.0 - 36.0 gm/dL [place] Comment: As part of CBC testing performe d at [facility], [address] [place] [address] RDW-SD 45.6 35.1 - 46.3 fL [place] Comment: As part of CBC testing performe d at [facility], [address] [place] [address] RDW-CV 12.1 12.0 - 15.5 % [place] Comment: As part of CBC testing performe d at [facility], [address] [place] [address], [place] [address] Platelet count 150 140 - 440 K/uL [facility] Comment: As part of CBC or an individual orderable testing performed at [facility], [address] [place] [address], [place] [address] MPV 9.6 4.0 - 10.4 fL [place] Comment: As part of CBC testing performe d at [facility], [address] [place] [address], [place] [address] Specimen Anatomical Collection Method Collection Time Receive d Time (Source) Location / / Volume Laterality Blood 04/22/2023 12:28 04/22/2023 PM CDT 12:29 PM CDT Narrative [place] - 04/22/2023 12:33 PM CDT Coordinate all on same day. Ok to schedu le 1-2 weeks following 04/14 to coordinate appts Winter Luu MD LAB BLOOD ORDERABLES Performing Organization Address City/State/ZIP Code Phon e Number [place], [place] [id number] [place] [address] Glomerular Filtration Rate (04/22/2023 12:28 PM CDT)Only the most recent of44 resultswithin the time period is included. P athologist Signature eGFR 86 >=60 [place] mL/min/1.73 sq. m Comment: The eGFRcr is [...] fulfill criteria for CKD. [facility], [address] [place] [address] Specimen Anatomical Collection Method Collection Time Receive d Time (Source) Location / / Volume Laterality Blood 04/22/2023 12:28 04/22/2023 PM CDT 12:29 PM CDT Narrative [place] - 04/22/2023 1:04 PM CDT Coordinate all on same day. Ok to schedu le 1-2 weeks following 04/14 to coordinate appts Winter Luu MD LAB BLOOD ORDERABLES Performing Organization Address City/State/[place] [address] [place] [address] (ABNORMAL) IGF-1 (04/22/2023 12:28 PM CDT)Only the most recent of2 resultswithin the time period is included. athologist Signature Insulin-Like 226 (H) 37 - 208 [facility] Growth Factor ng/mL [facility] IGF Z-score 2.33 -2.0 - 2.0 [facility] Comment: ADDITIONAL INFORMATIO N This test was developed and its performa nce characteristics determined by [facility] in a manner co nsistent with CLIA requirements. This test has not been sisi ared or approved by the U.S. Food and Drug Administration. Test Performed by: [place] [id number] Operations Advisor: Yonathan Guzman M.D. Ph. D.; CLIA# [id number] Specimen Anatomical Collection Method Collection Time Receive d Time (Source) Location / / Volume Laterality Blood 04/22/2023 12:28 04/22/2023 PM CDT 12:29 PM CDT Narrative [facility] - 3:42 PM CDT Coordinate all on same day. Ok to schedule 1-2 weeks following 04/14 to coordinate appts 8am Fasting Winter Luu MD LAB BLOOD ORDERABLES Performing Organization Address City/State/ZIP Code Phon e Number [facility]CER Unless otherwise noted, [place] [address] [facility] all lab tests performed by: Division of Pathology and Laboratory Medicine [id number] (ABNORMAL) ACTH (04/22/2023 12:28 PM CDT)Only the most recent of2 resultswithin the time period is included. athologist Signature ACTH 3 (L) 7 - 63 pg/mL [place] Comment: Results greater than 1826 pg/mL may not be reliable due to matrix effect with extended dilution as it exceeds the cementer machine applicator's recommended limit. ACTH reference intervals are established for the morni ng hours from 7-10 am. Due to the circad katie rhythm of ACTH levels in plasma, the sample col lection time must be noted. Caution should be exercised when interpreting such values and done in conjunction with clinical context. Testing performed at [facility], [address] [place] [address] Specimen Anatomical Collection Method Collection Time Receive d Time (Source) Location / / Volume Laterality Blood 04/22/2023 12:28 04/22/2023 PM CDT 12:29 PM CDT [facility] - 04/22/2023 1:05 PM CDT Coordinate all on same day. Ok to schedule 1-2 weeks following 04/14 to coordinate appts 8am Fasting Winter Luu MD LAB BLOOD ORDERABLES Performing Organization Address City/State/[place] [address] [place] [address] Prolactin (04/22/2023 12:28 PM CDT)Only the most recent of2 resultswithin the time period is included. P athologist Signature Prolactin 10.9 4.8 - 23.3 [facility] ng/mL [facility] Comment: Results greater than 4700.0 ng/ mL may not be reliable due to matrix effect with extended dilution as it exceeds the cementer machine applicator s recommended limit. Caution should be e xercised when interpreting such values and done in conjunction with clinical contex t. Specimen Anatomical Collection Method Collection Time Receive d Time (Source) Location / / Volume Laterality Blood 04/22/2023 12:28 04/22/2023 8:43 PM CDT PM CDT Narrative [facility] - 3 9:07 PM CDT Coordinate all on same day. Ok to schedule 1-2 weeks following 04/14 to coordinate appts 8am Fasting Winter Luu MD LAB BLOOD ORDERABLES Performing Organization Address City/State/ZIP Code Phon e Number [facility] Unless otherwise noted, [address] all lab tests performed by: Division of Pathology and Laboratory Medicine [facility] Estradiol (Women) (04/22/2023 12:28 PM CDT)Only the most recent of2 results within the time period is included. athologist Signature Estradiol <11 pg/mL [facility] Comment: Reference Ranges: Adult Females: Follicular Phase [...] Laterality Blood 04/22/2023 12:28 04/22/2023 PM CDT 8:43 PM CDT Narrative [facility] - 3 9:07 PM CDT Coordinate all on same day. Ok to schedule 1-2 weeks following 04/14 to coordinate appts 8am Fasting Winter Luu MD LAB BLOOD ORDERABLES Performing Organization Address City/State/ZIP Code Phon e Number [facility] CANC[facility] Unless otherwise noted, [place] [address] [place] all lab tests performed by: Division of Pathology and Laboratory Medicine [address] (ABNORMAL) Differential (04/22/2023 12:28 PM CDT)Only the most recent of44 resultswithin the time period is included. athologist Signature Neutrophil % 86.1 (H) 42.0 - [place] 66.0 % Comment: All components of the Different ial performed at [facility], [address] [place] [address] Lymphocyte % 10.9 (L) 24.0 - 44.0 % [place] Comment: As part of the Differential hailey ting performed at [facility], [address] [place] [address] Monocyte % 2.3 2.0 - 7.0 % [place] Comment: As part of the Differential hailey ting performed at [facility], [address] [place] [address] Eosinophil % 0.2 (L) 1.0 - 4.0 % [place] Comment: As part of the Differential hailey ting performed at [facility], [address] [place] [address] Basophil % 0.2 0.0 - 1.0 % [place] Comment: As part of the Differential hailey ting performed at [facility], [address] [place] [address] IGRE % 0.3 0.0 - 0.4 % [place] Comment: IGRE % count includes Metamyelocytes, My elocytes, and Promyelocytes. As part of the Differential testing perf ormed at [facility], [address] [place] [address] Neutrophil Abs 5.62 1.70 - 7.30 K/uL [facility] Comment: As part of the Differential hailey ting performed at [facility], [address] [place] [address] Lymphocyte Abs 0.71 (L) 1.00 - 4.80 K/uL [place] [facility] Comment: As part of the Differential hailey ting performed at [facility], [address] [place] [address], [place] [address] Monocyte Abs 0.15 0.08 - 0.70 K/uL [facility] [facility] Comment: As part of the Differential hailey ting performed at [facility], [address] [place] [address], [place] [address] Eosinophil Abs 0.01 (L) 0.04 - 0.40 K/uL [facility] Comment: As part of the Differential hailey ting performed at [facility], [address] [place] [address], [place] [address] Basophil Abs 0.01 0.00 - 0.10 K/uL [facility] Comment: As part of the Differential hailey ting performed at [facility], [address] [place] [address], [place] [address] IG Abs 0.02 0.00 - 0.04 K/uL [place] Comment: As part of the Differential hailey ting performed at [facility], [address] [place] [address] Specimen Anatomical Collection Method Collection Time Receive d Time (Source) Location / / Volume Laterality Blood 04/22/2023 12:28 04/22/2023 PM CDT 12:29 PM CDT Narrative [place] - 04/22/2023 12:33 PM CDT Coordinate all on same day. Ok to schedu le 1-2 weeks following 04/14 to coordinate appts Winter Luu MD LAB BLOOD ORDERABLES Performing Organization Address City/State/ZIP Code Phon e Number [place], [place] [id number] [place] [address] BUN (04/22/2023 12:28 PM CDT)Only the most recent of44 resultswithin the time period is included. athologist Signature BUN 12 6 - 23 mg/dL [place] Comment: Testing performed at [facility], [address] [place] [address], [place] [address] Specimen Anatomical Collection Method Collection Time Receive d Time (Source) Location / / Volume Laterality Blood 04/22/2023 12:28 04/22/2023 PM CDT 12:29 PM CDT [facility] - 04/22/2023 1:04 PM CDT Coordinate all on same day. Ok to schedu le 1-2 weeks following 04/14 to coordinate appts Winter Luu MD LAB BLOOD ORDERABLES Performing Organization Address City/State/[place] [address] [place] [address] Total T3 (04/22/2023 12:28 PM CDT)Only the most recent of2 resultswithin the time period is included. athologist Signature T3 Total 117 80 - 200 [place] ng/dL Comment: Performed at [facility], [address] [place] [address] Specimen Anatomical Collection Method Collection Time Receive d Time (Source) Location / / Volume Laterality Blood 04/22/2023 12:28 04/22/2023 PM CDT 12:29 PM CDT [facility] - 04/22/2023 1:04 PM CDT Coordinate all on same day. Ok to schedule 1-2 weeks following 04/14 to coordinate appts 8am Fasting Winter Luu MD LAB BLOOD ORDERABLES Performing Organization Address City/State/[place] [address] [place] [address] TSH (04/22/2023 12:28 PM CDT)Only the most recent of3 resultswithin the time period is included. athologist Signature TSH 1.06 0.27 - 4.20 [place] mcunit/mL Comment: Testing performed at [facility], [address] [place] [address] Specimen Anatomical Collection Method Collection Time Receive d Time (Source) Location / / Volume Laterality Blood 04/22/2023 12:28 04/22/2023 PM CDT 12:29 PM CDT [facility] - 04/22/2023 1:04 PM CDT Coordinate all on same day. Ok to schedule 1-2 weeks following 04/14 to coordinate appts 8am Fasting Winter Luu MD LAB BLOOD ORDERABLES Performing Organization Address City/State/[place] [address] [place] [address] Free T4 (04/22/2023 12:28 PM CDT)Only the most recent of3 resultswithin the time period is included. athologist Signature T4 Free 1.21 0.93 - 1.70 [place] ng/dL Comment: Testing performed at [facility], [address] [place] [address], [place] [address] Specimen Anatomical Collection Method Collection Time Receive d Time (Source) Location / / Volume Laterality Blood 04/22/2023 12:28 04/22/2023 PM CDT 12:29 PM CDT Narrative [place] - 04/22/2023 1:04 PM CDT Coordinate all on same day. Ok to schedule 1-2 weeks following 04/14 to coordinate appts 8am Fasting Winter Luu MD LAB BLOOD ORDERABLES Performing Organization Address City/[facility]/[place] [address] [place] [address] LH (04/22/2023 12:28 PM CDT)Only the most recent of2 resultswithin the time period is included. athologist Signature LH 8.7 mIU/mL [facility] Comment: Female Luteinizing Hormone Reference Ran ges: LOW HIGH Follicular 2.4 12.6 Ovulation 14.0 95.6 Luteal 1.0 11.4 Postmenopause 7.7 58.5 Specimen Anatomical Collection Method Collection Time Receive d Time (Source) Location / / Volume Laterality Blood 04/22/2023 12:28 04/22/2023 8:43 PM CDT PM CDT Narrative [facility] - 9:07 PM CDT Coordinate all on same day. Ok to schedule 1-2 weeks following 04/14 to coordinate appts 8am Fasting Winter Luu MD LAB BLOOD ORDERABLES Performing Organization Address City/State/ZIP Code Phon e Number [facility] Unless otherwise noted, [place] [address] CUSTER all lab tests performed by: Division of Pathology and Laboratory Medicine [address] [facility] (04/22/2023 12:28 PM CDT)Only the most recent of2 resultswithin the time period is included. athologist Signature FSH 30.1 mIU/mL [facility] Comment: Female Follicle Stimulating Hormone Refe rence Ranges: L OW HIGH Follicular 3.5 12.5 Ovulation 4.7 21.5 Luteal 1.7 7.7 Postmenopause 25.8 134.8 Specimen Anatomical Collection Method Collection Time Receive d Time (Source) Location / / Volume Laterality Blood 04/22/2023 12:28 04/22/2023 8:43 PM CDT PM CDT Narrative [facility] - 9:07 PM CDT Coordinate all on same day. Ok to schedule 1-2 weeks following 04/14 to coordinate appts 8am Fasting Winter Luu MD LAB BLOOD ORDERABLES Performing Organization Address City/State/ZIP Code Phon e Number [facility] Unless otherwise noted, [place] [address] CUSTER all lab tests performed by: Division of Pathology and Laboratory Medicine [address] [facility] (ABNORMAL) Total Cortisol (04/22/2023 12:28 PM CDT)Only the most recent of2 resultswithin the time period is included. athologist Signature Cortisol, 1.81 (L) 4.80 - [place] Total 19.50 mcg/dL Comment: Cortisol reference intervals [...] (4-8pm) (2.5 - 11.9) Testing performed at [facility], [address] [place] [address] Specimen Anatomical Collection Method Collection Time Receive d Time (Source) Location / / Volume Laterality Blood 04/22/2023 12:28 04/22/2023 PM CDT 12:29 PM CDT [facility] - 04/22/2023 1:04 PM CDT Coordinate all on same day. Ok to schedule 1-2 weeks following 04/14 to coordinate appts 8am Fasting Winter Luu MD LAB BLOOD ORDERABLES Performing Organization Address City/State/ZIP Code Phon e Number [place], [place] [id number] [place] [address] (ABNORMAL) Electrolyte Panel (04/22/2023 12:28 PM CDT)Only the most recent of45 resultswithin the time period is included. athologist Signature Sodium Lvl 135 (L) 136 - 145 [place] mEq/L Comment: Testing performed at [facility], [address] [place] [address] Potassium Lvl 4.7 3.5 - 5.1 mEq/L [facility] Comment: Testing performed at [facility], [address] [place] [address] Chloride 96 (L) 98 - 107 mEq/L [place] Comment: Testing performed at [facility], [address] [place] [address] CO2 21 (L) 22 - 29 mEq/L [place] Comment: Testing performed at [facility], [address] [place] [address] Anion Gap 18 (H) 4 - 14 mEq/L [place] Comment: Testing performed at [facility], [address] [place] [address] Specimen Anatomical Collection Method Collection Time Receive d Time (Source) Location / / Volume Laterality Blood 04/22/2023 12:28 04/22/2023 PM CDT 12:29 PM CDT [facility] - 04/22/2023 1:04 PM CDT Coordinate all on same day. Ok to schedu le 1-2 weeks following 04/14 to coordinate appts Winter Luu MD LAB BLOOD ORDERABLES Performing Organization Address City/[facility]/ZIP Code Phon e Number [place], [place] [id number] [place] [address] Fractionated Bilirubin (03/11/2023 11:15 AM CDT)Only the most recent of24 resultswithin the time period is included. athologist Signature Bili Total <0.3 <=1.2 mg/dL [place] Comment: Direct and indirect bilirubin will not b e reported when Total bilirubin result is <0.3 mg/dL Indocyanine Green (ICG) may cause falsel y elevated bilirubin results. Total and direct bilirubin must not be measured from samples containing indocyanine green. False elevation of total bilirubin can b e seen in patients with IgG concentrations above 28 g/L. Testing performed at [facility], [address] [place] [address] Specimen Anatomical Collection Method Collection Time Receive d Time (Source) Location / / Volume Laterality Blood 03/11/2023 11:15 03/11/2023 AM CDT 11:16 AM CDT [facility] - 03/11/2023 11:40 AM CDT Follow up at 1120, lab prior and infusio n after Lorena Hdez APRN LAB BLOOD ORDERABLES Performing Organization Address City/State/ZIP Code Phon e Number [place], [place] [phone] [place] [address] (ABNORMAL) ALT (03/11/2023 11:15 AM CDT)Only the most recent of24 resultswithin the time period is included. athologist Signature ALT 40 (H) <=33 U/L [place] Comment: [facility] performed at [facility], [address] [place] [address] Specimen Anatomical Collection Method Collection Time Receive d Time (Source) Location / / Volume Laterality Blood 03/11/2023 11:15 03/11/2023 AM CDT 11:16 AM CDT [facility] - 03/11/2023 11:40 AM CDT Follow up at 1120, lab prior and infusio n after Lorena Hdez APRN LAB BLOOD ORDERABLES Performing Organization Address City/State/ZIP Code Phon e Number [place], [place] [phone] [place] [address] Aspartate Aminotransferase (03/11/2023 11:15 AM CDT)Only the most recent of24 resultswithin the time period is included. athologist Signature AST 26 <=32 U/L [place] Comment: Testing performed at [facility], [address] [place] [address] Specimen Anatomical Collection Method Collection Time Receive d Time (Source) Location / / Volume Laterality Blood 03/11/2023 11:15 03/11/2023 AM CDT 11:16 AM CDT [facility] - 03/11/2023 11:40 AM CDT Follow up at 1120, lab prior and infusio n after Lorena Hdez APRN LAB BLOOD ORDERABLES Performing Organization Address City/State/ZIP Code Phon e Number [place], [place] [phone] [place] [address] Total Protein (03/11/2023 11:15 AM CDT)Only the most recent of24 resultswithin the time period is included. athologist [facility] Total Protein 7.0 6.4 - 8.3 [place] g/dL Comment: Testing performed at [facility], [address] [place] [address] Specimen Anatomical Collection Method Collection Time Receive d Time (Source) Location / / Volume Laterality Blood 03/11/2023 11:15 03/11/2023 AM CDT 11:16 AM CDT [facility] - 03/11/2023 11:40 AM CDT Follow up at 1120, lab prior and infusio n after Lorena Hdez APRN LAB BLOOD ORDERABLES Performing Organization Address City/[facility]/ZIP Code Phon e Number [address] (ABNORMAL) Alkaline Phosphatase (03/11/2023 11:15 AM CDT)Only the most recent of 24 resultswithin the time period is included. athologist [facility] Alk Phos 107 (H) 35 - 104 [place] U/L Comment: Testing performed at [facility], [address] [place] [address] Specimen Anatomical Collection Method Collection Time Receive d Time (Source) Location / / Volume Laterality Blood 03/11/2023 11:15 03/11/2023 AM CDT 11:16 AM CDT Narrative [facility] - 03/11/2023 11:40 AM CDT Follow up at 1120, lab prior and infusio n after Lorena Kayla Lemuel ESCALANTE LAB BLOOD ORDERABLES Performing Organization Address City/[facility] Phon e Number [place], [place] [phone] [place] [address] (ABNORMAL) Magnesium Level (03/11/2023 11:15 AM CDT)Only the most recent of42 resultswithin the time period is included. athologist Signature Magnesium 1.4 (L) 1.6 - 2.6 [place] mg/dL Comment: Testing performed at [facility], [address] [place] [address] Specimen Anatomical Collection Method Collection Time Receive d Time (Source) Location / / Volume Laterality Blood 03/11/2023 11:15 03/11/2023 AM CDT 11:16 AM CDT [facility] - 03/11/2023 11:40 AM CDT Follow up at 1120, lab prior and infusio n after Lorena Hdez APRN LAB BLOOD ORDERABLES Performing Organization Address City/[facility] Phon e Number [place], [place] [id number] [place] [address] (ABNORMAL) Glucose Level (03/11/2023 11:15 AM CDT)Only the most recent of43 resultswithin the time period is included. P athologist Signature Glucose Level 324 (H) 70 - 99 [place] mg/dL Comment: Effective 05/27/16, the glucose reference [...] risk for diabetes Testing performed at [facility], [address] [place] [address] Specimen Anatomical Collection Method Collection Time Receive d Time (Source) Location / / Volume Laterality Blood 03/11/2023 11:15 03/11/2023 AM CDT 11:16 AM CDT [facility] - 03/11/2023 11:40 AM CDT Follow up at 1120, lab prior and infusio n after Lorena Hdez APRN LAB BLOOD ORDERABLES Performing Organization Address City/State/ZIP Code Phon e Number [address] Calcium Level (03/11/2023 11:15 AM CDT)Only the most recent of43 resultswithin the time period is included. athologist Signature Calcium Lvl 9.3 8.4 - 10.2 [place] mg/dL Comment: Testing performed at [facility], [address] [place] [address] Specimen Anatomical Collection Method Collection Time Receive d Time (Source) Location / / Volume Laterality Blood 03/11/2023 11:15 03/11/2023 AM CDT 11:16 AM CDT [facility] - 03/11/2023 11:40 AM CDT Follow up at 1120, lab prior and infusio n after Lorena Hdez APRN LAB BLOOD ORDERABLES Performing Organization Address City/State/ZIP Code Phon e Number [address] Albumin Level (03/11/2023 11:15 AM CDT)Only the most recent of24 resultswithin the time period is included. athologist Signature Albumin Lvl 3.9 3.5 - 5.2 [place] gm/dL Comment: Testing performed at [facility], [address] [place], [place] [id number] Specimen Anatomical Collection Method Collection Time Receive d Time (Source) Location / / Volume Laterality Blood 03/11/2023 11:15 03/11/2023 AM CDT 11:16 AM CDT Narrative [place] - 03/11/2023 11:40 AM CDT Follow up at 1120, lab prior and infusio n after Lorena Garza Lemuel ESCALANTE LAB BLOOD ORDERABLES Performing Organization Address City/[facility] Phon e Number [facility] [place] [address] [address] [facility] (ABNORMAL) POC Glucose Screen (02/16/2023 12:02 PM [...] Sample Type Capillary POC TELCOR Performing Lab [facility] POC TELCO R Comment: [facility], [address] [place] [address], [place] [address]; Lab Direct or: Chula Jacob MD; Waived Point of Care Testing - Gabrielle Mueller MD Specimen Anatomical Collection Method Collection Time Receive d Time (Source) Location / / Volume Laterality Blood 02/16/2023 12:02 02/16/2023 PM CDT 12:02 PM CDT Ashleigh Rangel MD POCT ORDERABLES - DEVIWiley E Performing Organization Address City/State/ZIP Code Phon e Number POC TELCOR Unless otherwise noted, [place] [address] lab tests performed by: Division of Pathology and Laboratory Medicine [address] [place] [address] (ABNORMAL) Anti-Xa Level (02/16/2023 11:13 AM CDT) athologist Signature Anti-Xa Level 1.45 (H) 0.00 - [facility] 0.10 [place] unit/mL [facility] Comment: Anti-Xa Level (Heparin assay for [...] 2008; 133;141S-1598S Hep Type Enoxaparin [facility] Specimen Anatomical Collection Method Collection Time Receive d Time (Source) Location / / Volume Laterality Blood 02/16/2023 11:13 02/16/2023 AM CDT 11:21 AM CDT Narrative [facility] - 3 1:11 PM CDT Nurse please coordinate with lab to draw n Anti-Xa level (low molecular weight heparin level) 4 hours after 02/16/23 morning kourtney xaparin dose is given. Angeli Wang MD LAB BLOOD ORDERABLES Performing Organization Address City/[facility] Phon e Number [facility] Unless otherwise noted, [place] [address] CUSTER all lab tests performed by: Division of Pathology and Laboratory Medicine [address] Phosphorus Level (02/16/2023 6:15 AM CDT)Only the most recent of40 resultswithin the time period is included. athologist Signature Phosphorus 4.3 2.5 - 4.5 [facility] mg/dL [facility] Specimen Anatomical Collection Method Collection Time Receive d Time (Source) Location / / Volume Laterality Blood 02/16/2023 6:15 AM 3 6:59 CDT AM CDT DEEPTI Harrell APRN LAB BLOOD ORDERABLES Performing Organization Address City/State/ZIP Code Phon e Number [facility] Unless otherwise noted, [address] all lab tests performed by: Division of Pathology and Laboratory Medicine [address] [place] [address] General Laboratory Add-On Test (02/12/2023 9:33 AM CDT)Only the most recent of4 resultswithin the time period is included. Patholo gist Method Time Signature Ordered Test Added [facility] Test Needed procalcitonin [facility] Specimen Anatomical Collection Method Collection Time Receive d Time (Source) Location / / Volume Laterality Existing 02/12/2023 9:33 AM 3 9:34 CDT AM CDT Kimberli GALE LAB BLOOD ORDERABLES Performing Organization Address City/[facility] Code Phon e Number [facility] Unless otherwise noted, [address] all lab tests performed by: Division of Pathology and Laboratory Medicine [facility] (ABNORMAL) Procalcitonin (02/12/2023 5:34 AM CDT)Only the most recent of4 resultswithin the time period is included. P athologist Signature Procalcitonin 0.38 (H) <=0.08 [facility] ng/[facility] Comment: Procalcitonin > 2.00 ng/mL: Procalcit onin [...] with extended dilution as it exceeds the cementer machine applicator's recommended limit. Caution should be exercised when interpreting such values and done in conjunction with clinical context. Specimen Anatomical Collection Method Collection Time Receive d Time (Source) Location / / Volume Laterality Blood 02/12/2023 5:34 AM 3 6:18 CDT AM CDT Christian Flores APRN,AGACNP LAB BLOOD ORDERABLES Performing Organization Address City/State/ZIP Code Phon e Number [facility] Unless otherwise noted, [place] [address] CENTER all lab tests performed by: Division of Pathology and Laboratory Medicine [address] [facility] [address] Maxillofacial Area with Contrast (02/11/2023 4:15 [...] the time period is included. athologist Signature CK 125 26 - 192 [facility] U/L [facility] CENTER Specimen Anatomical Collection Method Collection Time Receive d Time (Source) Location / / Volume Laterality Blood 02/09/2023 5:37 AM 6:08 CDT AM CDT Shelby GALE LAB BLOOD ORDERABLES Performing Organization Address City/State/ZIP Code Phon e Number [facility] Unless otherwise noted, [place] [address] CUSTER all lab tests performed by: Division of Pathology and Laboratory Medicine [address] [place] [address] US Arm Venous Doppler Bilateral (02/08/2023 6:28 [...] PM CDT Examination: US ARM VENOUS DOPPLER [facility], 02/08/2023 6:28 PM Clinical History: Adenoid [...] - 02/08/2023 Examination: US ARM VENOUS DOPPLER [facility], 02/08/2023 6:28 PM Clinical History: Adenoid [...] was not perform ed in this study. (ebookpie Study). Diastology: Indeterminate. Right Ventricle: The right [...] 0.53 cm Doppler Measurements MV E max dennis: 99.6 cm/sec MV V2 max: 109.5 cm/sec MV A max dennis: 86.1 cm/sec MV max P.8 mmHg MV E/A: 1.2 MV V2 mean: 73.3 cm/sec MV mean P.3 mmHg MV V2 VTI: 29.2 cm MVA(VTI): 2.1 cm2 MV P1/2t max dennis: 100.0 cm/sec Ao V2 max: 183.4 cm/sec MV P1/2t: 69.5 msec Ao max P.5 mmHg MVA(P1/2t): 3.2 cm2 Ao V2 mean: 113.8 cm/sec Ao mean P.0 mmHg MV dec slope: 421.2 cm/sec2 Ao V2 VTI: 32.7 cm NOGZI(I,D): 1.9 cm2 NGOZI(V,D): 1.7 cm2 LV V1 max P.6 mmHg MR max dennis: 505.6 cm/sec LV V1 mean P.2 mmHg LV V1 max: 107.1 cm/sec LV V1 mean: 69.0 cm/sec LV V1 VTI: 20.6 cm SV(LVOT): 61.0 ml PA V2 max: 144.8 cm/sec PA max P.4 mmHg PA V2 mean: 99.2 cm/sec PA mean P.4 mmHg PA V2 VTI: 29.9 cm Med Peak E' Dennis: 6.3 cm/sec Lat Peak E' Dennis: 10.9 cm/sec TR max dennis: 242.7 cm/sec RAP systole: 3.0 mmHg TR [...] 0.53 cm Doppler Measurements MV E max dennis: 99.6 cm/sec MV V2 max: 109.5 cm/sec MV A max dennis: 86.1 cm/sec MV max PG : 4.8 mmHg MV E/A: 1.2 MV V2 mean: 73.3 cm/sec MV mean P.3 mmHg MV V2 VTI: 29.2 cm MVA(VTI): 2.1 cm2 MV P1/2t max dennis: 100.0 cm/sec Ao V2 max: 183.4 cm/sec MV P1/2t: 69.5 msec Ao max P.5 mmHg MVA(P1/2t): 3.2 cm2 Ao V2 mean: 113. 8 cm/sec Ao mean P.0 mmHg MV dec slope: 421.2 cm/sec2 Ao V2 V TI: 32.7 cm NGOZI(I,D): 1.9 cm2 NGOZI(V,D): 1.7 cm2 LV V1 max P.6 mmHg MR max dennis: 5 05.6 cm/sec LV V1 mean P.2 mmHg LV V1 max: 107.1 cm/sec LV V1 mean: 69.0 cm/sec LV V1 VTI: 20.6 cm SV(LVOT): 61.0 ml PA V2 max: 144.8 c m/sec PA max P.4 mmHg PA V2 mean: 99.2 cm/sec PA mean P.4 mmHg PA V2 VTI: 29.9 cm Med Peak E' Dennis: 6.3 cm/sec Lat Peak E' Dennis: 10.9 cm/sec TR max dennis: 242.7 cm/sec RAP systol e: 3.0 mmHg [...] purpose. For additional information please refer to http://education.Sterecycle/fa q/AAU218 (This link is being provided for informa tional/ educational purposes only.) The performance of this assay has not be en clinically validated in patients less than 2 years old. Lab test performed by: Lab Mnemonic: [facility] [employer] [address] [address] JOSE ELIAS MELÉNDEZ MD Specimen Anatomical Collection Method Collection Time Receive d Time (Source) Location / / Volume Laterality Blood 02/07/2023 6:52 AM 3 7:22 CDT AM CDT Branden Soria MD LAB BLOOD ORDERABLES Performing Organization Address City/State/ZIP Code Phon e Number [facility] Hepatitis C Virus Ab (02/07/2023 6:52 AM CDT)Only the most recent of2 results within the time period is included. Patholo gist Method Time Signature HCVAb. Non Reactive Non Reactive [facility] CUSTER Comment: Antibody detection in the immunocompromi sed [...] 6:52 AM 3 8:32 CDT AM CDT Branden Soria MD LAB BLOOD ORDERABLES Performing Organization Address City/[facility] Phon e Number [facility] Unless otherwise noted, [address] all lab tests performed by: Division of Pathology and Laboratory Medicine [address] [place] [address] Hepatitis B Total Ig Core Ab (SCREENING) (anti-HBc total Ig; HBcAb total Ig) (02/07/2023 6:52 AM CDT) [facility] Method Time Signature HBcAb. Non Reactive Non Reactive [facility] Specimen Anatomical Collection Method Collection Time Receive d Time (Source) Location / / Volume Laterality Blood 02/07/2023 6:52 AM 3 8:32 CDT AM CDT Branden Soria MD LAB BLOOD ORDERABLES Performing Organization Address [facility] Phon e Number [facility] Unless otherwise noted, [address] all lab tests performed by: Division of Pathology and Laboratory Medicine [address] [place] [address] Hepatitis B Surface Ag (02/07/2023 6:52 AM CDT) [facility] Method Time Signature HBsAg. Non Reactive Non Reactive [facility] Specimen Anatomical Collection Method Collection Time Receive d Time (Source) Location / / Volume Laterality Blood 02/07/2023 6:52 AM 3 8:32 CDT AM CDT Branden Soria MD LAB BLOOD ORDERABLES Performing Organization Address [facility] Phon e Number [facility] Unless otherwise noted, [address] all lab tests performed by: Division of Pathology and Laboratory Medicine [address] [place] [address] Blood Culture (02/07/2023 6:52 AM CDT)Only the most recent of6 resultswithin the time period is included. athologist Signature Final Report No growth [facility] Specimen Anatomical Collection Method Collection Time Receive d Time (Source) Location / / Volume Laterality Blood 02/07/2023 6:52 AM 3 7:43 (Venipuncture-Ri CDT AM CDT ght) Comment: arm Tim Nguyen MD MICROBIOLOGY - GENERAL ORDER GODWIN Performing Organization Address City/[facility] Phon e Number [facility] CANCER Unless otherwise noted, [address] all lab tests performed by: Division of Pathology and Laboratory Medicine [address] Transferrin with TIBC (02/07/2023 6:52 AM CDT) athologist Signature Transferrin 205 200 - 360 [facility] mg/dL [facility] TIBC 287 250 - 450 [facility] mcgdL [facility] Specimen Anatomical Collection Method Collection Time Receive d Time (Source) Location / / Volume Laterality Blood 02/07/2023 6:52 AM 3 7:07 CDT AM CDT Branden Soria MD LAB BLOOD ORDERABLES Performing Organization Address City/[facility]/ZIP Code Phon e Number [facility] CANCER Unless otherwise noted, [address] all lab tests performed by: Division of Pathology and Laboratory Medicine [address] Iron Level (02/07/2023 6:52 AM CDT) athologist Signature Iron 51 37 - 145 [facility] Specimen Anatomical Collection Method Collection Time Receive d Time (Source) Location / / Volume Laterality Blood 02/07/2023 6:52 AM 3 7:07 CDT AM CDT Branden Soria MD LAB BLOOD ORDERABLES Performing Organization Address City/[facility]/ZIP Code Phon e Number [facility] CANCER Unless otherwise noted, [address] all lab tests performed by: Division of Pathology and Laboratory Medicine [facility] (ABNORMAL) Hemoglobin A1c (02/07/2023 6:52 AM CDT)Only the most recent of2 resultswithin the time period is included. athologist Signature A1C 10.2 (H) 4.3 - 5.6 % [facility] Comment: HbA1c values >=6.5% are diagnostic of di abetes mellitus. Diagnosis should be confirmed by repeat testing. Therapeutic Action suggested: >8.0% HbA1 c; Goal of therapy: <7.0% HbA1c Specimen Anatomical Collection Method Collection Time Receive d Time (Source) Location / / Volume Laterality Blood 02/07/2023 6:52 AM 3 7:09 CDT AM CDT Branden Soria MD LAB BLOOD ORDERABLES Performing Organization Address City/State/ZIP Code Phon e Number [facility] CANCER Unless otherwise noted, [address] all lab tests performed by: Division of Pathology and Laboratory Medicine [address] [place] [address] (ABNORMAL) Ferritin Level (02/07/2023 6:52 AM CDT) athologist Signature Ferritin Lvl 320 (H) 13 - 150 [facility] ng/mL [facility] CENTER Specimen Anatomical Collection Method Collection Time Receive d Time (Source) Location / / Volume Laterality Blood 02/07/2023 6:52 AM 3 7:07 CDT AM CDT Branden Soria MD LAB BLOOD ORDERABLES Performing Organization Address City/[facility] Code Phon e Number [facility] CANCER Unless otherwise noted, [address] all lab tests performed by: Division of Pathology and Laboratory Medicine [facility] (ABNORMAL) Lipid Panel (02/07/2023 6:52 AM CDT) athologist [facility] Chol 137 <=199 mg/dL [facility] Comment: ATP III Classification of Total Choleste rol Primary Target of Therapy (in mg/dL): <200 Desirable 200-239 Borderline high >=240 High Trig 184 (H) <=149 mg/dL [facility] Comment: ATP III Classification of Serum Triglyce rides Primary Target of Therapy (in mg/dL): <150 Normal 150-199 Borderline high 200-499 High >=500 Very high Non-fasting triglycerides >200 mg/dL may be followed up with a fasting Lipid Panel. Calculated LDL-C may be falsely decreased when non-fasting triglycerides >200 mg/dL. HDL 27 (L) >=40 mg/dL [facility] LDL 73 <=100 mg/dL [facility] Comment: ATP III Classification of LDL Cholestero l Primary Target of Therapy (in mg/dL): <100 Optimal 100-129 Near optimal/above optimal 130-159 Borderline high 160-189 High >=190 Very high VLDL 37 mg/dL [facility] Specimen Anatomical Collection Method Collection Time Receive d Time (Source) Location / / Volume Laterality Blood 02/07/2023 6:52 AM 3 7:07 CDT AM CDT Branden Soria MD LAB BLOOD ORDERABLES Performing Organization Address City/State/ZIP Code Phon e Number [facility] CANCER Unless otherwise noted, [address] all lab tests performed by: Division of Pathology and Laboratory Medicine [facility] [address] Clostridium Difficile DNA Path Review (02/07/2023 5:18 AM CDT) Component Value Ref Test Analysis Performed At [facility] gist Range Method Time Signature C diff DNA FL Reviewed and Electronically signed by Pathologist: [place] MD PATRICIA CHAVEZ MD #[id number] [facility] Comment: C. difficile Toxin DNA [...] for repeat testing. PATRICIA CHAVEZ MD - [id number] Dictated by: PATRICIA CHAVEZ MD - [id number] Dictated Date/Time: 02.07.2023 16:35 PM CDT Transcribed Date/Time: 02.07.2023 16:35 PM CDT Electronically Signed By: PATRICIA OTTO MD - [id number] on 02.07.2023 16:35 PM Specimen Anatomical Collection Method Collection Time Receive d Time (Source) Location / / Volume Laterality Stool 02/07/2023 5:18 AM 3 8:07 CDT AM CDT Branden Soria MD MICROBIOLOGY - GENERAL ORDER GODWIN Performing Organization Address City/State/ZIP Code Phon e Number [facility] Unless otherwise noted, [address] all lab tests performed by: Division of Pathology and Laboratory Medicine [address] [place] [address] Clostridium Difficile DNA Assay (02/07/2023 5:18 AM CDT) [facility] gist Method Time [facility] C difficile DNA Negative Negative CARLA GRIFFIN [facility] C difficle Toxin Test Not Negative [place] EIA Performed [facility] C difficile C. difficile [facility] Interpretation DNA [place] detection CANCER was negative CENTER making C. difficile infection highly unlikely in this patient. EIA not performed. Specimen Anatomical Collection Method Collection Time Receive d Time (Source) Location / / Volume Laterality Stool 02/07/2023 5:18 AM 6:14 CDT AM CDT Branden CalixRodger Soria MD MICROBIOLOGY - GENERAL ORDER GODWIN Performing Organization Address City/State/ZIP Code Phon e Number [facility] CANCER Unless otherwise noted, [place] [phone] [address] all lab tests performed by: Division of Pathology and Laboratory Medicine [address] [place] [address] Gastrointestinal Multiplex Panel (02/07/2023 5:16 AM CDT) Component Value Ref Range Test Analysis Performed Patholog t Method Time At [facility] Campylobacter Not Detected Not [place] Detected [facility] C difficile DNA (GI Refer to [place] Multi Panel) separate C. [facility] difficile DNA CANCER Assay for CENTER results Plesiomonas Not Detected Not [place] shigelloides Detected [facility] Salmonella Not Detected Not [facility] Detected [facility] Vibrio Not Detected Not [facility] Detected [facility] Vibrio cholerae Not Detected Not [facility] Detected [facility] Yersinia Not Detected Not [facility] enterocolitica Detected [facility] Enteroaggregative E. Not Detected Not [place] coli (EAEC) Detected [facility] Enteropathogenic E. Not Detected Not [facility] coli (EPEC) Detected [facility] Enterotoxigenic E. Not Detected Not [facility] coli (ETEC) Detected [facility] Shiga-like Not Detected Not [facility] toxin-producing E. Detected [place] col (STEC) [facility] CENTER E. coli O157 Not Not [place] Applicable Detected [facility] Shigella/Enteroinvas Not Detected Not [place] rosales E. coli (EIEC) Detected [facility] Cryptosporidium Not Detected Not [place] Detected [facility] Cyclospora Not Detected Not [place] cayetanensis Detected [facility] Entamoeba Not Detected Not [place] histolytica Detected [facility] Giardia lamblia Not Detected Not [facility] Detected [facility] Adenovirus F 40/41 Not Detected Not [place] MD Detected [facility] Astrovirus Not Detected Not [place] MD Detected [facility] Norovirus GI/GII Not Detected Not [place] MD Detected [facility] Rotavirus A Not Detected Not [place] Detected [facility] Sapovirus (I, II, IV Not Detected Not [place] MD and V) Detected [facility] Specimen Anatomical Collection Method Collection Time Receive d Time (Source) Location / / Volume Laterality Stool 02/07/2023 5:16 AM 3 6:13 CDT AM CDT Son Amelia Estella GRIFFIN MICROBIOLOGY - GENERAL ORDER GODWIN Performing Organization Address City/State/ZIP Code Phon e Number [facility] CANCER Unless otherwise noted, [place] [address] [address] all lab tests performed by: Division of Pathology and Laboratory Medicine [address] [place] [address] Gastrointestinal Multiplex Panel Path Review (02/07/2023 5:16 AM CDT) [facility] gist Method Time Signature GIMP [place] Reviewed and Electronically signed by Pathologist: CARLA CHAVEZ MD #[id number] [facility] Comment: Performed by real-time PCR [...] correlation is recommended. PATRICIA CHAVEZ MD - [id number] Dictated by: PATRICIA CHAVEZ MD - [id number] Dictated Date/Time: 02.07.2023 16:40 PM CDT Transcribed Date/Time: 02.07.2023 16:40 PM CDT Electronically Signed By: PATRICIA OTTO MD - [id number] on 02.07.2023 16:40 PM Specimen Anatomical Collection Method Collection Time Receive d Time (Source) Location / / Volume Laterality Stool 02/07/2023 5:16 AM 3 6:13 CDT AM CDT Branden Soria MD LAB BLOOD ORDERABLES Performing Organization Address City/[facility]/ZIP Code Phon e Number [facility] Unless otherwise noted, [address] all lab tests performed by: Division of Pathology and Laboratory Medicine [address] [facility] EKG, 12-Lead (Portable) (02/07/2023)Only the most recent of2 resultswithin the time period is included. Specimen (Source) Anatomical Location Collection Method / Collectio n Time Received Time / Laterality Volume Narrative This result has an attachment that is no t available. Romana Guy MD ECG ORDERABLES Performing Organization Address City/[facility]/ZIP Code Phon e Number [facility] IECG NT-Pro BNP (In-House) (02/06/2023 3:05 AM CDT)Only the most recent of2 results within the time period is included. athologist Signature NT ProBNP 83 <=125 pg/mL [facility] Specimen Anatomical Collection Method Collection Time Receive d Time (Source) Location / / Volume Laterality Blood 02/06/2023 3:05 AM 3 3:20 CDT AM CDT Cathie Meneses WIND ENERGY MECHANIC,AGACNP LAB BLOOD ORDERABLES Performing Organization Address City/[facility] Code Phon e Number [facility] Unless otherwise noted, [address] all lab tests performed by: Division of Pathology and Laboratory Medicine [address] [facility] CRP (02/06/2023 3:05 AM CDT)Only the most recent of3 resultswithin the time period is included. P athologist Signature CRP 65.62 mg/L [facility] Comment: Reference ranges for HS CRP assay [...] AM 3 3:20 CDT AM CDT Cathie Ayo Meneses WIND ENERGY MECHANIC,AGACNP LAB BLOOD ORDERABLES Performing Organization Address City/[facility]/ZIP Code Phon e Number [facility] CANCER Unless otherwise noted, [address] all lab tests performed by: Division of Pathology and Laboratory Medicine [address] [place] [address] Troponin T (In-House) (02/06/2023 1:09 AM CDT)Only the most recent of2 results within the time period is included. P athologist Signature Troponin T 10 <=19 ng/L [facility] Comment: < 19 ng/L Suggest retest at [...] MD LAB BLOOD ORDERABLES Performing Organization Address City/[facility]/ZIP Code Phon e Number [facility] CANCER Unless otherwise noted, [address] all lab tests performed by: Division of Pathology and Laboratory Medicine [address] [place] [address] (ABNORMAL) Urine Culture (02/06/2023 12:40 AM CDT)Only the most recent of3 resultswithin the time period is included. Patholo gist Method Time Signature Final Report 10 - 50,000 cfu/ml Normal site isabel present. MI Generally of low significance. [place] Correlate with clinical data and culture history. CANCER CENTER (A) Specimen Anatomical Collection Method Collection Time Receive d Time (Source) Location / / Volume Laterality Urine 02/06/2023 12:40 02/06/2023 2:54 AM CDT AM CDT Irina Jama Ceslo ESCALANTE MICROBIOLOGY - GENERAL ORDER GODWIN Performing Organization Address City/[facility]/ZIP Code Phon e Number [facility] CANCER Unless otherwise noted, [address] all lab tests performed by: Division of Pathology and Laboratory Medicine [address] [place] [address] aPTT (02/05/2023 8:26 PM CDT)Only the most recent of5 resultswithin the time period is included. athologist Signature aPTT 28.5 22.8 - 34.2 [facility] Specimen Anatomical Collection Method Collection Time Receive d Time (Source) Location / / Volume Laterality Blood 02/05/2023 8:26 PM 3 8:29 CDT PM CDT Deneen Guevara MD LAB BLOOD ORDERABLES Performing Organization Address [facility] Phon e Number [facility] Unless otherwise noted, [address] all lab tests performed by: Division of Pathology and Laboratory Medicine [address] [place] [address] VB Lactate (02/05/2023 8:26 PM CDT)Only the most recent of4 resultswithin the time period is included. athologist Signature V Lactate 1.2 0.5 - 1.6 [facility] mmol/L [facility] Specimen Anatomical Collection Method Collection Time Receive d Time (Source) Location / / Volume Laterality Blood 02/05/2023 8:26 PM 3 8:29 CDT PM CDT Deneen Guevara MD LAB BLOOD ORDERABLES Performing Organization Address City/[facility]/ZIP Code Phon e Number [facility] CANCER Unless otherwise noted, [address] all lab tests performed by: Division of Pathology and Laboratory Medicine [address] [place] [address] (ABNORMAL) Prothrombin Time with INR (02/05/2023 8:26 PM CDT)Only the most recent of5 resultswithin the time period is included. P athologist Signature PT 14.7 (H) 11.9 - 14.1 [facility] INR 1.16 (H) 0.89 - 1.10 [place] MD [facility] Specimen Anatomical Collection Method Collection Time Receive d Time (Source) Location / / Volume Laterality Blood 02/05/2023 8:26 PM 3 8:29 CDT PM CDT Deneen Guevara MD LAB BLOOD ORDERABLES Performing Organization Address City/[facility]/ZIP Code Phon e Number [facility] CANCER Unless otherwise noted, [address] all lab tests performed by: Division of Pathology and Laboratory Medicine [facility] (ABNORMAL) D Dimer (02/05/2023 8:26 PM CDT) P athologist Signature D-Dimer 3.04 (H) 0.10 - 0.50 [facility] mcg/ml [facility] Comment: The cut off value for exclusion of venou s thromboembolism is <0.51 mcg/mL FEUs (fibrinogen equival ent units). Specimen Anatomical Collection Method Collection Time Receive d Time (Source) Location / / Volume Laterality Blood 02/05/2023 8:26 PM 3 8:29 CDT PM CDT Deneen Guevara MD LAB BLOOD ORDERABLES Performing Organization Address [facility]/ZIP Code Phon e Number [facility] CANCER Unless otherwise noted, [address] all lab tests performed by: Division of Pathology and Laboratory Medicine [address] [place] [address] X-ray Abdomen AP (02/05/2023 6:59 PM CDT) [...] of obstruction or ileus. Amanda Proctor MD [facility] DIAGNOSTIC IMAGING ORDER GODWIN X-ray Chest 1 [...] of4 resultswithin the time period is included. [facility] Method Time Signature COVID19 Not Detected Not Detected CARLA GRIFFIN (SARS-CoV-2) [facility] COVID19 SARS Inpatient [place] Indication Admission [facility] Covid 19 See Note [place] Comment [facility] Comment: The ruby SARS-CoV-2 nucleic acid test [...] fact sheet for patients provided by the cementer machine applicator ([employer]) can be reviewed at: https://www.fda.gov/media/917153/luislosourav hobson. A fact sheet for Health Care providers is provided by the cementer machine applicator ([employer]) and can be reviewed at: https://www.fda.gov/media/989153/download Results must be interpreted within the c [...] and high-complexity tests. The Microbiology Laboratory at [facility], CLIA Accreditation #[id number] a mo CAP Accreditation #[id number], verified the performance characteristics of this assay. Internal controls are used to monitor all stages of the test process. Specimen (Source) Anatomical Collection Method Collection Time Re ceived Time Location / / Volume Laterality Nasopharyngeal Swab 02/05/2023 5:09 02/05 PM CDT 5:17 PM CDT Amanda Proctor MD MICROBIOLOGY - GENERAL ORDER GODWIN Performing Organization Address City/[facility]/ZIP Code Phon e Number [facility] CANCER Unless otherwise noted, [address] all lab tests performed by: Division of Pathology and Laboratory Medicine [facility] Lipase (02/05/2023 3:30 PM CDT)Only the most recent of4 resultswithin the time period is included. P athologist Signature Lipase Lvl 18 13 - 60 U/L [facility] Specimen Anatomical Collection Method Collection Time Receive d Time (Source) Location / / Volume Laterality Blood 02/05/2023 3:30 PM 3 3:39 CDT PM CDT Amanda Proctor MD LAB BLOOD ORDERABLES Performing Organization Address City/[facility] Phon e Number [facility] Unless otherwise noted, [address] all lab tests performed by: Division of Pathology and Laboratory Medicine [address] [place], [place] [address]d CKMB (02/05/2023 3:30 PM CDT) P athologist Signature CK MB <2.0 <=5.3 ng/mL [facility] Specimen Anatomical Collection Method Collection Time Receive d Time (Source) Location / / Volume Laterality Blood 02/05/2023 3:30 PM 3 3:39 CDT PM CDT Amanda Proctor MD LAB BLOOD ORDERABLES Performing Organization Address City/[facility] Code Phon e Number [facility] Unless otherwise noted, [address] all lab tests performed by: Division of Pathology and Laboratory Medicine [address] [place], [place] [address]d Amylase Level (02/05/2023 3:30 PM CDT)Only the most recent of2 resultswithin the time period is included. P athologist Signature Amylase Lvl 43 28 - 100 [facility] U/L [facility] Specimen Anatomical Collection Method Collection Time Receive d Time (Source) Location / / Volume Laterality Blood 02/05/2023 3:30 PM 3 3:39 CDT PM CDT Amanda Proctor MD LAB BLOOD ORDERABLES Performing Organization Address City/[facility]/ZIP [facility] Phon e Number [facility] Unless otherwise noted, [address] all lab tests performed by: Division of Pathology and Laboratory Medicine [address] (ABNORMAL) Urinalysis with Microscopic (02/05/2023 12:39 AM CDT) [facility] Method Time Signature UA Color [place] (A) [facility] UA Appear Cloudy (A) Clear [facility] UA Glucose 500 (A) NEG mg/dL [facility] UA Bili NEG NEG [facility] UA Ketones 40 (A) NEG mg/dL [facility] UA Spec Grav 1.021 1.003 - [facility] 1.035 [facility] UA Blood NEG NEG [facility] UA pH 6.0 5.0 - 9.0 [facility] UA Protein 20 (A) NEG mg/dL [facility] UA Urobilinogen NEG NEG [facility] UA Nitrite NEG NEG [facility] UA Leuk Est NEG NEG [facility] UA WBC NOT SEEN 0 - 2 [facility] /[facility] Comment: Some reporting parameters within the Uri nalysis test have changed due to the implementation of new instrumentation in the [facility], allowing greater sensitivity of measurement. Urinalysis results rep orted by the [facility] using existing instrumentation, as well as Urinalysis t esting performed manually or by backup methodology at the [facility] will remain relatively unchanged. New reporting parameters and units will not be reported for all campuses. UA RBC 13 (H) 0 - 2 /HPF [facility] UA Mucous NOT SEEN Not Seen-Trace /HPF [facility] UA Bacteria NOT SEEN NOT SEEN /HPF [facility] UA Squam Epi OCC None-Occasional /HPF [facility] Specimen Anatomical Collection Method Collection Time Receive d Time (Source) Location / / Volume Laterality Urine 02/05/2023 12:39 02/06/2023 AM CDT 12:42 AM CDT Irina Houston APRN URINE ORDERABLES Performing Organization Address City/State/ZIP Code Phon e Number 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 Informed consent obtained prior to procedure, the risks, benefits, and alternative discussed with patient/designated bank representative. Pre-p rocedure the patient was alert. [...] placement. placement and tip verified using tip it web development consultant and place ment and tip verified by [...] Signature Hgb 13.3 12.0 - 16.0 [facility] gm/dL [facility] Specimen Anatomical Collection Method Collection Time Receive d Time (Source) Location / / Volume Laterality Blood 01/28/2023 8:24 AM 3 8:30 CDT AM CDT Mana Powers APRN LAB BLOOD ORDERABLES Performing Organization Address City/[facility]/ZIP Code Phon e Number [facility] CANCER Unless otherwise noted, [address] all lab tests performed by: Division of Pathology and Laboratory Medicine [facility] Hematocrit (01/28/2023 8:24 AM CDT)Only the most recent of3 resultswithin the time period is included. athologist Signature Hct 40.6 37.0 - 47.0 [facility] Specimen Anatomical Collection Method Collection Time Receive d Time (Source) Location / / Volume Laterality Blood 01/28/2023 8:24 AM 3 8:30 CDT AM CDT Mana Powers APRN LAB BLOOD ORDERABLES Performing Organization Address City/[facility]/ZIP Code Phon e Number [facility]CER Unless otherwise noted, [address] all lab tests performed by: Division of Pathology and Laboratory Medicine [address] (ABNORMAL) Urinalysis Microscopic Exam (01/26/2023 10:45 PM CDT) athologist Signature UA WBC 6 (H) 0 - 2 /HPF [facility] Comment: Some reporting parameters within the Uri nalysis test have changed due to the implementation of new instrumentation in the Main [place], allowing greater sensitivity of measurement. Urinalysis results rep orted by the [facility] using existing instrumentation, as well as Urinalysis t esting performed manually or by backup methodology at the [facility] [place] will remain relatively unchanged. New reporting parameters and units will not be reported for all campuses. UA RBC <1 0 - 2 /HPF [facility] [place] [facility] UA Mucous NOT SEEN Not Seen-Trace /HPF [place] MD [facility] CUSTER UA Bacteria NOT SEEN NOT SEEN /HPF [facility] UA Squam Epi OCC None-Occasional /HPF [facility] Specimen Anatomical Collection Method Collection Time Receive d Time (Source) Location / / Volume Laterality Urine 01/26/2023 10:45 01/26/2023 PM CDT 10:49 PM CDT Amanda Proctor MD LAB BLOOD ORDERABLES Performing Organization Address City/State/ZIP Code Phon e Number [facility] CANCER Unless otherwise noted, [address] all lab tests performed by: Division of Pathology and Laboratory Medicine [address] [facility] (ABNORMAL) Urinalysis w/Microscopic if Indicated (01/26/2023 10:45 PM CDT)Only the most recent of2 resultswithin the time period is included. Analysis Performed At Patho logist Time Signature UA Color Straw [place] [facility] UA Appear Clear Clear [facility] UA Glucose 500 (A) NEG mg/dL [facility] UA Bili NEG NEG [facility] UA Ketones NEG NEG mg/dL [facility] UA Spec Grav 1.020 1.003 - [place] MD 1.035 [facility] UA Blood NEG NEG [facility] UA pH 5.5 5.0 - 9.0 [facility] UA Protein 30 (A) NEG mg/dL [facility] UA Urobilinogen NEG NEG [facility] UA Nitrite NEG NEG [facility] UA Leuk Est NEG NEG [facility] Specimen Anatomical Collection Method Collection Time Receive d Time (Source) Location / / Volume Laterality Urine 01/26/2023 10:45 01/26/2023 PM CDT 10:49 PM CDT Amanda Proctor MD URINE ORDERABLES Performing Organization Address City/State/ZIP Code Phon e Number [facility] Unless otherwise noted, [address] all lab tests performed by: Division of Pathology and Laboratory Medicine [facility] (ABNORMAL) [facility] (01/26/2023 2:44 PM CDT)Only the most recent of3 resultswithin the time period is included. P athologist Signature LDH 289 (H) 135 - 214 [facility] U/L [facility]ER CENTER Comment: Results greater than [...] Address City/State/ZIP Code Phon e Number [facility] CANCER Unless otherwise noted, [place] [address] CENTER all lab tests performed by: Division of Pathology and Laboratory Medicine [address] (ABNORMAL) Controlled Substance Monitoring Panel, Urine (01/20/2023 12:37 PM CDT) Analysis Performed At Patho logist Time Signature Urine 55.1 mg/dL [facility] Creatinine [facility] Urine Specific 1.014 [facility] [place] [facility] Urine Ph 6.2 [facility] Urine Oxidants Negative Cutoff: [place] 200 mg/L [facility] Urine Comment Normal [facility] U Negative Cutoff: [place] Barbiturates-Ma 200 ng/mL [facility] U Cocaine Negative Cutoff: [place] Lvl-Luu 150 ng/mL [facility] Comment: This cocaine immunoassay targets benzoyl ecgonine the primary metabolite of cocaine. U THC-Luu See Footnote (A) Cutoff: 50 ng/mL [facility] Comment: RESULT: Presumptive Positive This immunoassay targets [...] testing. Codeine Not Detected Cutoff: 25 ng/mL [place] MD ALCALA [facility] Comment: Tylenol 3 Zvtmwaj-4-iwhq-glucuronide Not Detected Cutoff: 100 ng/mL [facility] Comment: Metabolite of codeine Morphine Not Detected Cutoff: 25 ng/mL [place] MD [facility]A [facility] Comment: Avinza, Martha, MS Contin; Also a minor metabolite (10%) of codeine and can be seen in low concentra tions (<2,000 ng/mL) with poppy seed ingestion. Yoopzpav-5-acca-glucuronide Not Detected Cutoff: 100 ng/mL [facility] Comment: Metabolite of morphine 6-monoacetylmorphine Not Detected Cutoff: 25 ng/mL [facility] Comment: Metabolite of heroin Hydrocodone Not Detected Cutoff: 25 ng/mL [facility] Comment: Lortab, Hubbard, Vicodin; Also a very luci r metabolite of codeine and impurity (<1%) of oxycodone. Norhydrocodone Not Detected Cutoff: 25 ng/mL [facility] Comment: Metabolite of hydrocodone Dihydrocodeine Not Detected Cutoff: 25 ng/mL [facility] Comment: Metabolite of hydrocodone Hydromorphone Not Detected Cutoff: 25 ng/mL [facility] Comment: Dilaudid, Exalgo; Also a metabolite of h ydrocodone and a minor (<5%) metabolite of morphine. Wslluwgbfvqwd-8-seep-glucuronide Not Detected Cutoff: 100 [facility] ng/mL [facility] Comment: Metabolite of hydromorphone Oxycodone Present (A) Cutoff: 25 ng/mL [facility] Comment: Endocet, Percocet, Oxycontin Noroxycodone Present (A) Cutoff: 25 ng/mL [facility] Comment: Metabolite of oxycodone Oxymorphone Not Detected Cutoff: 25 ng/mL [facility] Comment: Numorphan, Opana; Also a metabo lite of oxycodone. Xufazmrmfqm-5-ipjx-glucuronide Not Detected Cutoff: 100 ng/mL [facility] Comment: Metabolite of oxymorphone and/o r naloxone (nornaloxone) Noroxymorphone Present (A) Cutoff: 25 ng/mL [facility] Comment: Metabolite of oxymorphone and/o r naloxone (nornaloxone) Fentanyl Not Detected Cutoff: 2 ng/mL [facility] Comment: Actiq, Duragesic, Fentora Norfentanyl Not Detected Cutoff: 2 ng/mL [place] MD [facility] Comment: Metabolite of fentanyl Meperidine Not Detected Cutoff: 25 ng/mL [place] [facility] Comment: Demerol Normeperidine Not Detected Cutoff: 25 ng/mL [facility] Comment: Metabolite of meperidine Naloxone Not Detected Cutoff: 25 ng/mL [place] MD [facility] Comment: Narcan Cggxivxe-9-mvwd-glucuronide Not Detected Cutoff: 100 ng/mL [facility] Comment: Metabolite of naloxone U Methadone Not Detected Cutoff: 25 ng/mL [place] MD [facility] Comment: Dolophine EDDP Not Detected Cutoff: 25 ng/mL [place] MD [facility]A [facility] Comment: Metabolite of methadone Propoxyphene Not Detected Cutoff: 25 ng/mL [place] MD Benjamin [facility] Comment: Darvon, Darvocet Norpropoxyphene Not Detected Cutoff: 25 ng/mL [facility] Comment: Metabolite of propoxyphene Tramadol Not Detected Cutoff: 25 ng/mL [place] MD [facility] Comment: Tradol, Ultram, Ultracet O-desmethyltramadol Not Detected Cutoff: 25 ng/mL [facility] Comment: Metabolite of tramadol Tapentadol Not Detected Cutoff: 25 ng/mL [place] MD [facility] Comment: Nucynta Ayywupjqzo-rgjm-zulwmltyqng Not Detected Cutoff: 100 ng/mL [facility] Comment: Metabolite of tapentadol Buprenorphine Not Detected Cutoff: 5 ng/mL [place] MD Benjamin [facility] Comment: Buprenex, Suboxone Norbuprenorphine Not Detected Cutoff: 5 ng/mL [facility] Comment: Metabolite of buprenorphine Norbuprenorphine Glucuronide Not Detected Cutoff: 20 ng/mL [facility] Comment: Metabolite of buprenorphine Opioid Interpretation See Footnote [facility] Comment: Test detected the presence of oxycodone and one of its metabolites (noroxycodone) along with no roxymorphone (metabolite of oxymorphone). Suspect use of oxymorphone and/or oxycodone within the past three d ays. Trace amounts of oxycodone can be found as an impurity in oxymorphone. ADDITIONAL INFORMATIO N This test was developed and its performa nce characteristics determined by [facility] in a manner co nsistent with CLIA requirements. This test has not been sisi ared or approved by the U.S. Food and Drug Administration. Alprazolam Urine Present (A) Cutoff: 10 ng/mL [facility] Comment: Xanax Alpha-Hydroxyalprazolam Urine Present (A) Cutoff: 10 ng/mL [facility] Comment: Metabolite of Alprazolam Alpha-Hydroxyalprazolam Present (A) Cutoff: 50 ng/mL [facility] Glucuronide Urine [facility] Comment: Metabolite of Alprazolam Chlordiazepoxide Urine Not Detected Cutoff: 10 ng/mL [facility] Comment: Librium Colbazam Urine Not Detected Cutoff: 10 ng/mL [facility] Comment: Frisium, Onfi N-Desmethylclobazam Urine Not Detected Cutoff: 200 ng/mL [facility] Comment: Metabolite of Clobazam Clonazepam Urine Not Detected Cutoff: 10 ng/mL [facility] Comment: Klonopin, Rivotril 7-Aminoclonazepam Urine Not Detected Cutoff: 10 ng/mL [facility] Comment: Metabolite of Clonazepam Diazepam Urine Not Detected Cutoff: 10 ng/mL [facility] Comment: Valium Nordiazepam Urine Not Detected Cutoff: 10 ng/mL [facility] Comment: Metabolite of Chlordiazepoxide, Diazepam, or Prazepam. Flunitrazepam Urine Not Detected Cutoff: 10 ng/mL [facility] Comment: Rohypnol 7-Aminoflunitrazepam Urine Not Detected Cutoff: 10 ng/mL [facility] Comment: Metabolite of Flunitrazepam FlUrinerazepam Urine Not Detected Cutoff: 10 ng/mL [facility] Comment: Dalmane 2-Hydroxy Ethyl Flurazepam Not Detected Cutoff: 10 ng/mL [facility] Comment: Metabolite of Flurazepam Lorazepam Urine Not Detected Cutoff: 10 ng/mL [facility] Comment: Ativan Lorazepam Glucuronide Not Detected Cutoff: 50 ng/mL [facility] Comment: Metabolite of Lorazepam Midazolam Urine Not Detected Cutoff: 10 ng/mL [facility] Comment: Versed Alpha-Hydroxy Midazolam Not Detected Cutoff: 10 ng/mL [facility] Comment: Metabolite of Midazolam Oxazepam Urine Not Detected Cutoff: 10 ng/mL [facility] Comment: Serax; Also a metabolite of Chlordiazepo xide, Diazepam, or Temazepam. Oxazepam Glucuronide Urine Not Detected Cutoff: 50 ng/mL [facility] Comment: Metabolite of Oxazepam Prazepam Urine Not Detected Cutoff: 10 ng/mL [facility] Comment: Centrax Temazepam Urine Not Detected Cutoff: 10 ng/mL [facility] Comment: Restoril; Also a metabolite of Diazepam. Temazepam Glucuronide Not Detected Cutoff: 50 ng/mL [facility] Comment: Metabolite of Temazepam Triazolam Urine Not Detected Cutoff: 10 ng/mL [facility] Comment: Halcion Alpha-Hydroxy Triazolam Not Detected Cutoff: 10 ng/mL [facility] Comment: Metabolite of Triazolam Zolpidem Urine Not Detected Cutoff: 10 ng/mL [facility] Comment: Ambien Zolpidem Jrufc-7-Febvfharzn Present (A) Cutoff: 10 ng/mL [facility] Comment: Metabolite of Zolpidem Benzodiazepine Interp Urine See Footnote [facility] Comment: Test detected the presence of alprazolam and two of its metabolites (alpha-hydroxyalprazolam and alpha-hydroxyalprazolam glucuronide). Agarwal spect use of alprazolam within the past three days. Test detected the presence of zolpidem p ykitg-2-sbpgerpejb acid (metabolite of zolpidem) only. Susp ect use of zolpidem within the past four days. ADDITIONAL INFORMATIO N This test was developed and its performa nce characteristics determined by [facility] in a manner co nsistent with CLIA requirements. This test has not been sisi ared or approved by the U.S. Food and Drug Administration. Methamphetamine Not Detected Cutoff: 100 ng/mL [facility] Comment: Desoxyn Amphetamine Not Detected Cutoff: 100 ng/mL [facility] Sourav [facility] Comment: Dyanavel XR, Adzenys ER, Adderall, Vyvan se; Also a metabolite of methamphetamine 3,4-Methylenedioxymethamphetamine Not Detected Cutoff: 100 [facility] (MDMA) ng/mL [facility] 3,1-Vxbkgstojjcggy-S-Ethylamphetamine Not Detected Cutoff: 100 [facility] (MDEA) ng/mL [facility] 3,4-Methylenedioxyamphetamine (MDA) Not Detected Cutoff: 100 [facility] ng/mL [facility] Comment: Also a metabolite of MDMA and/o r MDEA Ephedrine Not Detected Cutoff: 100 ng/mL [facility] Pseudoephedrine Present (A) Cutoff: 100 ng/mL [facility] Comment: Sudafed Phentermine Not Detected Cutoff: 100 ng/mL [facility] Sourav [facility] Comment: Adipex-P, Lomaira, Qsymia Phencyclidine (PCP) Not Detected Cutoff: 20 ng/mL [facility] Methylphenidate Not Detected Cutoff: 20 ng/mL [facility] Comment: Ritalin, Concerta Ritalinic acid Not Detected Cutoff: 100 ng/mL [facility] Comment: Metabolite of methylphenidate Stimulant Interpretation See Footnote [facility] Comment: Test detected the presence of pseudoephe drine. Suspect use of pseudoephedrine within the past three days. ADDITIONAL INFORMATIO N This test was developed and its performa nce characteristics determined by [facility] in a manner co nsistent with CLIA requirements. This test has not been sisi ared or approved by the U.S. Food and Drug Administration. Test Performed by: [facility] - [place] [address] Operations Advisor: Yonathan Guzman M.D. Ph. D.; CLIA# [id number] Patients Current Medications NOT ANSWERED [facility] Comment: ADDITIONAL INFORMATIO N Accuracy and completeness of declared me dications on reports solely dependent on information submitted by client. Specimen Anatomical Collection Method Collection Time Receive d Time (Source) Location / / Volume Laterality Urine 01/20/2023 12:37 01/20/2023 8:31 PM CDT PM CDT Rogerio Kramer MD URINE ORDERABLES Performing Organization Address City/State/ZIP Code Phon e Number [facility] CANCER Unless otherwise noted, [place] [address] CUSTER all lab tests performed by: Division of Pathology and Laboratory Medicine [address] (ABNORMAL) POC Urine Drug Screen (01/20/2023 12:37 PM CDT) athologist Signature POC U Amp Negative Negative [facility] Comment: Drug Abuse Cutoff Concentration: Cutoff: 1000 ng/mL POC U Barbit Negative Negative [facility] Comment: Drug Abuse Cutoff Concentration: 300 ng/mL POC U Benzo Positive (A) Negative [facility] Comment: Drug Abuse Cutoff Concentration: Cutoff: 300 ng/ mL POC U Cocaine Negative Negative [facility] Comment: Drug Abuse Cutoff Concentration: Cutoff: 300 ng/mL POC U THC Positive (A) Negative [facility] Comment: Drug Abuse Cutoff Concentration: Cutoff: 50 ng/mL POC U Methd Negative Negative [facility] Comment: Drug Abuse Cutoff Concentration: Cutoff: 300 ng/mL POC U Mampht Negative Negative [facility] Comment: Drug Abuse Cutoff Concentration: Cutoff: 1000 ng/mL POC U Opiate Negative Negative [facility] Comment: Drug Abuse Cutoff Concentration: Cutoff: 2000 ng/mL POC U Oxycod Positive (A) Negative [facility] Comment: Drug Abuse Cutoff Concentration: Cutoff: 100 ng/mL Due to the assay cross reactivity betwee n Oxycodone and Opiates, and lower sensitivity compared to GC-MS method, the test results may be falsely positive or falsely negative. Confirmation with concurrent GC-MS results is recommended. POC U PCP Negative Negative [facility] Comment: Drug Abuse Cutoff Concentration: Cutoff: 25 ng/mL POC U TCA Negative Negative [facility] Comment: Drug Abuse Cutoff Concentration: Cutoff: 1000 ng/mL POC U PPX Negative Negative [facility] CANCE [facility] Comment: Drug Abuse Cutoff Concentration: Cutoff: 300 [...] 1:10 Catch PM CDT PM CDT Narrative [facility] - 3 1:30 PM CDT The POC Urine Qualitative Drug Screen Pa augusto report is intended for use in clinical monitoring or management of patients. Un confirmed screening results must not be used for non-medical purposes such as legal o r employment-related testing. Rogerio Kramer MD POINT OF CARE TEST ORDERA BLES Performing Organization Address City/State/ZIP Code Phon e Number [facility]CER Unless otherwise noted, [place] [address] CUSTER all lab tests performed by: Division of Pathology and Laboratory Medicine [facility] [address] Tetrahydocannabinol (THC), Quantitative, Urine (01/20/2023 12:37 PM CDT) athologist Signature U THC n/a CARLA GRIFFIN GC/MS-[facility] U THC see note CARLA GRIFFIN Interp-[facility] Comment: Carboxy-THC Confirmation, U: Carboxy-THC Interpretation: Positive ADDITIONAL INFORMATION: This report is intended for use in clini mari monitoring and management of patients. It is not intend ed for use in employment-related testing. Delta-8 Carboxy-Tetrahydrocannabinol by LC-MS/MS: 672 ng/mL Reference Value: Cutoff: 5 Delta-9 Carboxy-Tetrahydrocannabinol by LC-MS/MS: 42 ng/mL Reference Value: Cutoff: 5 PERFORMING LAB: [place] [address] Yonathan Guzman M.D. Ph.D. [id number] U [facility] n/a [facility] Specimen Anatomical Collection Method Collection Time Receive d Time (Source) Location / / Volume Laterality Urine, Clean 01/20/2023 12:37 01/27/2023 Catch PM CDT 11:34 AM CDT Rogerio Kramer MD URINE ORDERABLES Performing Organization Address City/State/ZIP Code Phon e Number [facility]CER Unless otherwise noted, [place] [address] CUSTER all lab tests performed by: Division of Pathology and Laboratory Medicine [facility] X-ray Knee 1 Or 2 Views Right [...] OU - Both Eyes (12/29/2022 10:51 AM INJECTION OPERATOR) Specimen (Source) Anatomical Location Collection Method / Collectio n Time Received Time / Laterality Volume Narrative Al-Suzanne Heredia MD - 12/30/2022 11:50 AM INJECTION OPERATOR Right Eye Threshold was 30-2. The [...] OU - Both Eyes (12/29/2022 10:43 AM INJECTION OPERATOR) Specimen (Source) Anatomical Location Collection Method / Collectio n Time Received Time / Laterality Volume Narrative Suzanne Mcgrath MD - 12/30/2022 11:44 AM INJECTION OPERATOR Normal average thickness of peripapillary retinal nerve fiber layer . With borderline thinning temporally righ t eye Suzanne Mcgrath MD OPHTHALMOLOGY IMG ORDERABLES OCT, Retina - OU - Both Eyes (12/29/2022 10:43 AM INJECTION OPERATOR) Specimen (Source) Anatomical Location Collection Method / Collectio n Time Received Time / Laterality Volume Narrative Suzanne Mcgrath MD - 12/30/2022 11:44 AM INJECTION OPERATOR This result has an attachment that is no t available. Normal macular volume. No sign of serou s retinopathy Suzanne Mcgrath MD OPHTHALMOLOGY IMG ORDERABLES COVID-19 (SARS-CoV-2) PCR-Asymptomatic [facility] (12/23/2022 12:01 PM INJECTION OPERATOR) [facility] Method Time Signature COVID19 (SARS Not Detected Not Detected [place] CoV-2) [facility] CANCER CUSTER Comment: This test is a qualitative reverse-trans criptase polymerase chain reaction (RT- PCR) developed for the [employer] RUBY 6800 system and intended for qualitative detection of SARS CoV-2 RNA in nasopharyngeal a nd oropharyngeal swab specimens collecte d from any individuals, including those suspected o f COVID-19 by their healthcare provider, and those without symptoms or other reasons to suspect COVID-19. A fact sheet for patients provided by the cementer machine applicator ( [employer]) can be rev iewed at: https://www.fda.gov/media/374304/treasure hobson. A fact sheet for Health Care providers is provided by the cementer machine applicator ([employer]) and can be reviewed at: https://www.fda.gov/media/377405/download Results must be interpreted within the c [...] were verified by the Microbiology Laboratory at [facility], CLIA Accreditation #: [id number] and CAP Accreditation #: [id number]. COVID19 SARS Source DIRECTOR OF STATE Swab [place] MD [facility] COVID19 SARS Indication Pre-Radiation Therapy [facility] Specimen (Source) Anatomical Collection Method Collection Time Re ceived Time Location / / Volume Laterality Nasopharyngeal Swab 12/23/2022 12:01 12/03 PM INJECTION OPERATOR 3:41 PM INJECTION OPERATOR Winter Luu MD MICROBIOLOGY - GENERAL ORDER [place] Performing Organization Address City/State/ZIP Code Phon e Number [facility] Unless otherwise noted, [address] all lab tests performed by: Division of Pathology and Laboratory Medicine [address] OCT, Optic Nerve - OU - Both Eyes (12/15/2022 10:37 AM INJECTION OPERATOR) Specimen (Source) Anatomical Location Collection Method / Collectio n Time Received Time / Laterality Volume Narrative Sheridan Alvarez MD - 12/17/2022 12:25 PM INJECTION OPERATOR Right Eye Average nerve fiber layer thickness cons istent with normal Left Eye Average nerve fiber layer thickness cons istent with normal Sheridan Alvarez MD OPHTHALMOLOGY IMG ORDERABLES OCT, Retina - OU - Both Eyes (12/15/2022 10:37 AM INJECTION OPERATOR) Specimen (Source) Anatomical Location Collection Method / Collectio n Time Received Time / Laterality Volume Narrative Sheridan Alvarez MD - 12/17/2022 12:25 PM INJECTION OPERATOR Right Eye This is the baseline exam. Findings incl ude normal observations. Left Eye This is the baseline exam. Findings incl ude normal observations. Sheridan Alvarez MD OPHTHALMOLOGY IMG ORDERABLES Fundus Photos - OU - Both Eyes (12/15/2022 10:37 AM INJECTION OPERATOR) Specimen (Source) Anatomical Location Collection Method / Collectio n Time Received Time / Laterality Volume Narrative Sheridan Alvarez MD - 12/17/2022 12:25 PM INJECTION OPERATOR Right Eye Basline Exam. Sheridan Alvarez MD OPHTHALMOLOGY IMG ORDERABLES 3D Dental Imaging (iCAT) (12/15/2022 8:42 AM INJECTION OPERATOR) Specimen (Source) Anatomical Location Collection Method / Collectio n Time Received Time / Laterality Volume Narrative Systemgenerated, Documentation - 023 8:42 AM INJECTION OPERATOR This procedure requires no interpretatio n from the radiologist. Benito Saini DDS IMG NON DI ORDERABLES [place] Modified Barium Swallow w Speech (12/14/2022 2:37 PM INJECTION OPERATOR) Anatomical Region Laterality Modality Neck Radio Fluoroscopy Specimen (Source) Anatomical Collection Method Collection Time Re ceived Time Location / / Volume Laterality 12/14/2022 2:58 PM INJECTION OPERATOR Impressions 12/14/2022 3:08 PM INJECTION OPERATOR 1. Flash penetration without aspiration seen with thin liquid barium. 2. Please refer to the separately dictat ed speech pathology report for further details and recommendations. 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 There was no pharyngeal residue. Pharyngeal [...] ORDERABLES (ABNORMAL) ABG Venous (12/11/2022 6:21 PM INJECTION OPERATOR) P athologist Signature pH Raghavendra 7.40 7.32 - 7.43 [facility] Comment: Results are corrected for a bod y temp of 37C pCO2 Raghavendra 47.6 41.0 - 51.0 mmHg [place] MD LEIF Chapman [facility] pO2 Raghavendra 52 mmHg [place] [facility] HCO3 Raghavendra 29 (H) 21 - 28 mmol/L [facility] Base Excess Raghavendra 3 -2 - 3 mmol/L [place] MD CARI SCHNEIDER [facility] O2 Sat Raghavendra 87 % [facility] Specimen Anatomical Collection Method Collection Time Receive d Time (Source) Location / / Volume Laterality Blood 12/11/2022 6:21 PM 3 6:29 INJECTION OPERATOR PM INJECTION OPERATOR Travis Lopez MD LAB BLOOD ORDERABLES Performing Organization Address City/[facility]/ZIP Code Phon e Number [facility] Unless otherwise noted, [address] all lab tests performed by: Division of Pathology and Laboratory Medicine [address] [place] [address] Ketone Bodies Qualitative (12/11/2022 5:19 PM INJECTION OPERATOR) P athologist Signature UA Ketones NEG NEG mg/dL [facility] Specimen Anatomical Collection Method Collection Time Receive d Time (Source) Location / / Volume Laterality Urine 12/11/2022 5:19 PM 3 5:24 INJECTION OPERATOR PM INJECTION OPERATOR Waleska Salinas APRN URINE ORDERABLES Performing Organization Address [facility]/ZIP Code Phon e Number [facility] Unless otherwise noted, [address] all lab tests performed by: Division of Pathology and Laboratory Medicine [facility] POC Critical (12/11/2022 3:34 PM INJECTION OPERATOR)Only the most recent of2 resultswithin the time period is included. P athologist Signature POC Critical See Note POC T[facility] Comment Comment: Test performer notified Orderin g Licensed Provider and /or designee of POC Glucose Screen critical Results.. Specimen Anatomical Collection Method Collection Time Receive d Time (Source) Location / / Volume Laterality Blood 12/11/2022 3:34 PM 3 3:34 INJECTION OPERATOR PM INJECTION OPERATOR Travis Lopez MD POINT OF CARE TEST ORDERABLE S Performing Organization Address City/[facility]/ZIP Code Phon e Number POC [facility] Unless otherwise noted, [place] [address] lab tests performed by: Division of Pathology and Laboratory Medicine [address] [place] [address] (ABNORMAL) POC VBG+Lac (12/09/2022 9:36 PM INJECTION OPERATOR) athologist Signature POC VB pH 7.46 [...] Clean Dev Yes POC [facility] Performing Lab [facility] POC TELCO R Comment: [facility] Clinical Lab, [address] [place] [address]; Lab Direct or: Chula Jacob MD; Waived Point of Care Testing - Gabrielle Mueller MD Specimen Anatomical Collection Method Collection Time Receive d Time (Source) Location / / Volume Laterality Blood 12/09/2022 9:36 PM 9:36 INJECTION OPERATOR PM INJECTION OPERATOR Roberto Carlos Walsh MD POCT ORDERABLES - DEVICE Performing Organization Address City/State/ZIP Code Phon e Number POC [facility] Unless otherwise noted, [place] [address] lab tests performed by: Division of Pathology and Laboratory Medicine [address] [place] [address] Ammonia Level (12/09/2022 6:01 PM INJECTION OPERATOR) athologist Signature Ammonia 18 11 - 51 [facility] [place] Specimen Anatomical Collection Method Collection Time Receive d Time (Source) Location / / Volume Laterality Blood 12/09/2022 6:01 PM 6:15 INJECTION OPERATOR PM INJECTION OPERATOR Tammy Mike MD LAB BLOOD ORDERABLES Performing Organization Address City/[facility] Phon e Number [facility] Unless otherwise noted, [address] all lab tests performed by: Division of Pathology and Laboratory Medicine [facility] Michelle LOUIS MD, MDA CHRISTINE: Mutation Analysis Precision Panel Report (12/04/2022 10:56 AM INJECTION OPERATOR) Specimen (Source) Anatomical Collection Method Collection Time Re ceived Time Location / / Volume Laterality 12/04/2022 10:56 AM INJECTION OPERATOR Narrative This result has an attachment that is no t available. Lorena LOUIS [facility] (MISSY GRIFFIN) Solid Tumor Genomic Assay Fusions 2018 Interpretation and Report (12/04/2022 10:56 AM INJECTION OPERATOR) Specimen Anatomical Collection Method Collection Time Receive d Time (Source) Location / / Volume Laterality 12/04/2022 10:56 12/04/2022 AM INJECTION OPERATOR 10:56 AM INJECTION OPERATOR Narrative This result has an attachment that is no t available. Lorena [facility] (MISSY GRIFFIN) Molecular Diagnostics Specimen Collection -FFPE (12/04/2022 10:56 AM INJECTION OPERATOR) [facility] gist Method Time Signature Molecular Yes [facility] (Received) CANCER CENTER Jael Ap Link [id number] [facility] Block Number BLANK [facility] (Qualitative) [facility] Outside [id number] [facility] (Qualitative) CANCER CENTER Specimen Anatomical Collection Method Collection Time Receive d Time (Source) Location / / Volume Laterality FFPE 12/04/2022 10:56 12/04/2022 AM INJECTION OPERATOR 10:56 AM INJECTION OPERATOR Lorena LOUIS MD NONBLOOD COLLECTIO NS Performing Organization Address City/[facility] Phon e Number [facility] Unless otherwise noted, [address] all lab tests performed by: Division of Pathology and Laboratory Medicine Brian Hodges MRI Skull Base with and without Contrast (11/30/2022 11:12 AM INJECTION OPERATOR) Anatomical Region Laterality Modality Head Magnetic Resonance Specimen (Source) Anatomical Collection Method Collection Time Re ceived Time Location / / Volume Laterality 12/01/2022 9:21 AM INJECTION OPERATOR Impressions 12/01/2022 1:06 PM INJECTION OPERATOR 1. 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 2. Tumor likely involves the lesser wi ng of the left sphenoid bone. 3. No lateral retropharyngeal or visua lized cervical adenopathy. Narrative 12/01/2022 1:06 PM INJECTION OPERATOR FULL RESULT: Examination: MRI SKULL BASE [...] Enhanced Initial Treatment Strategy (11/27/2022 3:57 PM INJECTION OPERATOR) Anatomical Region Laterality Modality Whole Body Positron Emission To mography (PET) Specimen (Source) Anatomical Collection Method Collection Time Re ceived Time Location / / Volume Laterality 11/30/2022 8:31 AM INJECTION OPERATOR Impressions 11/30/2022 8:38 AM INJECTION OPERATOR Subtle activity associated with subtle asymmetric fullness in posterior left nasal pharynx is compatible with reported primary tumor. No suspicious activity to suggest regional jeremiah or distant metastases. Narrative 11/30/2022 8:38 AM INJECTION OPERATOR FULL RESULT: Examination: Contrast-Enhanced FDG PET [...] MD YUN Blood Control (11/26/2022 1:07 PM INJECTION OPERATOR) athologist Signature Molecular Yes [facility] (Received) Specimen Anatomical Collection Method Collection Time Receive d Time (Source) Location / / Volume Laterality Blood 11/26/2022 1:07 PM 9:13 INJECTION OPERATOR AM INJECTION OPERATOR Lorena Hdez WIND ENERGY MECHANIC MDA IP HP MOLECULAR DIAG IF ORDERABLES Performing Organization Address City/State/ZIP Code Phon e Number [facility] Unless otherwise noted, [place] [address] [address] all lab tests performed by: Division of Pathology and Laboratory Medicine [id number] Michelle Hodges (ABNORMAL) Vitamin D 25OH (11/26/2022 1:07 PM INJECTION OPERATOR) athologist Signature Vitamin D 25 OH 21 (L) 30 - 100 [place] ng/mL Comment: Reference Range: Deficiency: <10 ng/mL Insufficiency: 10-29 ng/mL Sufficiency: 30-100 ng/mL Potential toxicity: >100 ng/mL Testing performed at [facility], [address] [place] [address] Specimen Anatomical Collection Method Collection Time Receive d Time (Source) Location / / Volume Laterality Blood 11/26/2022 1:07 PM 3 1:19 INJECTION OPERATOR PM INJECTION OPERATOR Lorena Kayla Hdez APRN LAB BLOOD ORDERABLES Performing Organization Address City/[facility]/ZIP Code Phon e Number [address] (ABNORMAL) Uric Acid (11/26/2022 1:07 PM INJECTION OPERATOR) P athologist Signature Uric Acid 6.5 (H) 2.4 - 5.7 [place] mg/dL Comment: Testing performed at [facility], [address] [place] [address] Specimen Anatomical Collection Method Collection Time Receive d Time (Source) Location / / Volume Laterality Blood 11/26/2022 1:07 PM 3 1:19 INJECTION OPERATOR PM INJECTION OPERATOR Lorena Hdez APRN LAB BLOOD ORDERABLES Performing Organization Address City/[facility]/ZIP Code Phon e Number [address] MD NTRK3 Fusion Material Request (11/26/2022 12:43 PM INJECTION OPERATOR) Component Value Ref Test Analysis [facility] Range Method Time Signature Archived The test is to be 12/04/2022 [facility] Material performed on 8:01 AM INJECTION OPERATOR tissue from case [id number]. The case report, slides, and blocks for [...] Volume Laterality Tissue 11/26/2022 12:43 11/26/2022 PM INJECTION OPERATOR 12:43 PM INJECTION OPERATOR Lorena Kayla Hdez APRN [facility] IP AP BIOMARKERS Performing Organization Address City/[facility]/ZIP Code Phon [place] [address] Michelle Hodges MD NTRK2 Fusion Material Request (11/26/2022 12:43 PM INJECTION OPERATOR) Component Value Ref Test Analysis Performed At [facility] gist Range Method Time Signature Archived The test is to be 12/04/2022 [facility] Material performed on 8:01 AM INJECTION OPERATOR tissue from case [id number]. The case report, slides, and blocks for the cited accession were retrieved from archives. The pathologist examined the candidate H&E slide and selected the block appropriate to the specifications of the ordered molecular analysis. Unstained slides and H&E slide were prepared and forwarded to [facility] where the subject molecular test will be performed. Results will be reported separately. Pathologist Electronically 12/04/2022 [facility] Signature signed by Larissa March 8:01 AM BRANDAN Medrano MD on 12/04/22 8:01 AM Specimen Anatomical Collection Method Collection Time Receive d Time (Source) Location / / Volume Laterality Tissue 11/26/2022 12:43 11/26/2022 PM INJECTION OPERATOR 12:43 PM INJECTION OPERATOR Lorena Hdez APRN [facility] IP AP BIOMARKERS Performing Organization Address City/[facility] [place]on [place] [address] 15[address] Michelle Hodges MD NTRK1 Fusion Material Request (11/26/2022 12:43 PM INJECTION OPERATOR) Component Value Ref Test Analysis Performed At [facility] gist Range Method Time Signature Archived The test is to be 12/04/2022 [facility] Material performed on 8:01 AM INJECTION OPERATOR tissue from case [id number]. The case report, slides, and blocks for [...] Volume Laterality Tissue 11/26/2022 12:43 11/26/2022 PM INJECTION OPERATOR 12:43 PM INJECTION OPERATOR Lorena Hdez APRN [facility] IP AP BIOMARKERS Performing Organization Address City/[facility] [place] [address]15 Michelle Hodges MD ERBB2 Mutation Analysis Material Request (11/26/2022 12:43 PM INJECTION OPERATOR) Component Value Ref Test Analysis Performed At [facility] Method Time Signature Archived The test is to be 12/04/2022 [facility] Material performed on 8:01 AM INJECTION OPERATOR tissue from case [id number]. The case report, slides, and blocks for [...] Volume Laterality Tissue 11/26/2022 12:43 11/26/2022 PM INJECTION OPERATOR 12:43 PM INJECTION OPERATOR Lorena Hdez APRN [facility] IP AP BIOMARKERS Performing Organization Address City/State/ZIP [facility] [place]on [place] [address]15 Michelle Hodges MD ALK Mutation Analysis Material Request (11/26/2022 12:43 PM INJECTION OPERATOR) Component Value Ref Test Analysis Performed At [facility] Method Time Signature Archived The test is to be 12/04/2022 [facility] Material performed on 8:02 AM INJECTION OPERATOR tissue from case [id number]. The case report, slides, and blocks for [...] Volume Laterality Tissue 11/26/2022 12:43 11/26/2022 PM INJECTION OPERATOR 12:43 PM INJECTION OPERATOR Lorena Hdez APRN [facility] IP AP BIOMARKERS Performing Organization Address City/[facility] Phon [place] [address] Michelle Hodges MD MTOR Mutation Material Request (11/26/2022 12:43 PM INJECTION OPERATOR) Component Value Ref Test Analysis Performed At [facility] Method Time Signature Archived The test is to be 12/04/2022 [facility] Material performed on 8:01 AM INJECTION OPERATOR tissue from case [id number]. The case report, slides, and blocks for [...] Volume Laterality Tissue 11/26/2022 12:43 11/26/2022 PM INJECTION OPERATOR 12:43 PM INJECTION OPERATOR Lorena Hdez APRN [facility] IP AP BIOMARKERS Performing Organization Address City/[facility] Phon e Number [facility] [place] [address] Michelle Hodges MD PTEN Mutation Material Request (11/26/2022 12:43 PM INJECTION OPERATOR) Component Value Ref Test Analysis Performed At [facility] Range Method Time Signature Archived The test is to be 12/04/2022 [facility] Material performed on 8:02 AM INJECTION OPERATOR tissue from case [id number]. The case report, slides, and blocks for [...] Volume Laterality Tissue 11/26/2022 12:43 11/26/2022 PM INJECTION OPERATOR 12:43 PM INJECTION OPERATOR Lorena Hdez APRN [facility] IP AP BIOMARKERS Performing Organization Address [facility] Phon e Number [facility] [place] [address] Michelle Hodges MD EGFR Mutation Material Request (11/26/2022 12:43 PM INJECTION OPERATOR) Component Value Ref Test Analysis Performed At [facility] Range Method Time Signature Archived The test is to be 12/04/2022 [facility] Material performed on 8:02 AM INJECTION OPERATOR tissue from case [id number]. The case report, slides, and blocks for [...] Volume Laterality Tissue 11/26/2022 12:43 11/26/2022 PM INJECTION OPERATOR 12:43 PM INJECTION OPERATOR Lorena Hdez APRN [facility] IP AP BIOMARKERS Performing Organization Address [facility] Phon e Number [facility] [place] [address] Michelle Hodges IHC PD-L1 Material Request (11/26/2022 12:43 PM INJECTION OPERATOR) Specimen Anatomical Collection Method Collection Time Receive d Time (Source) Location / / Volume Laterality Tissue 11/26/2022 12:43 11/26/2022 PM INJECTION OPERATOR 12:43 PM INJECTION OPERATOR Lorena Garza Lemuel ESCALANTE MDA IP AP BIOMARKERS Performing Organization Address City/State/ZIP Code [place] [address] Michelle [place] IHC HER2/arcenio Material Request (11/26/2022 12:43 PM INJECTION OPERATOR) Specimen Anatomical Collection Method Collection Time Receive d Time (Source) Location / / Volume Laterality Tissue 11/26/2022 12:43 11/26/2022 PM INJECTION OPERATOR 12:43 PM INJECTION OPERATOR Lorena Kaylajazmin Hdez APRN [facility] IP AP BIOMARKERS Performing Organization Address City/State/ZIP Code Phon e Number [facility] [place] [address] [address] [place] Testosterone Level (11/17/2022 12:11 PM INJECTION OPERATOR) athologist Signature Testoster Tot <3 3 - 41 [place] ng/dL Comment: Reference Ranges: Male: Age 20 - 49 249 - 836 Age >=50 1 93 - 740 Female: Age 20 - 49 8 - 48 Age >=50 3 - 41 Testing performed at [facility], [address] [place] [address] Specimen Anatomical Collection Method Collection Time Receive d Time (Source) Location / / Volume Laterality Blood 11/17/2022 12:11 11/17/2022 PM INJECTION OPERATOR 12:12 PM INJECTION OPERATOR Red Berman WIND ENERGY MECHANIC LAB BLOOD ORDERABLES Performing Organization Address City/[facility] Phon e Number [place], [place] [id number] [place] [address] Pathology Outside Interpretation (10/16/2022) Component Value Ref Test Analysis Performed Pathologis t Range Method Time At [facility] Accession#, Stained, Block, Unstained Collected Received 11/27/2022 [facility] Received A. [id number], 7 SS, 1 BLOCKS, 0 USS 10/16/2022 11/24/2022 5:08 PM INJECTION OPERATOR Addendum 1 At the request of the donell physician the following studies were performed and interpreted at [facility]. 11/27/2022 [facility] Addendum 5:08 PM electronic ally The tumor cells are negative for Her2 (0%) by immunohi stochemical analysis. 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 MD Gerald on 11/27/2022 at PD-L1 (Clone 22C3, [employer]) Combine d Positive Score (CPS): is less than 1 5:08 PM Assay Information: This assa y is manufactured by [employer] and uses a monoclonal anti-PD-L1, clone 22C3. It is performed on formalin-fixed paraffin- embedded tissue using an [employer] autostainer a nd polymer based detection k it, as specified by the cementer machine applicator. It is approved for use as a television presenter diagnostic for specific therapies on certain tumor [...] is defined as CPS 100. Diagnosis Outside ([id number], 7 SS, 1 BLOCKS, 0 USS, colle cted on 10/16/2022): 11/27/2022 [facility] Electronically 5:08 PM signed by Nasopharynx, biopsy: INJECTION OPERATOR Ashleigh ADENOID CYSTIC CARCINOMA, CRIBRIFORM TYPE see comment MD Gerald on 11/26/2022 at EARL/SALEEM 9:43 AM Comment Submitted 11/27/2022 [facility] immunohistochemical 5:08 PM stains performed by INJECTION OPERATOR referring institution show that CK7 highlights the epithelial cells, and p63 and p40 highlights the myoepithelial cells. The morphology and immunophenotype is supportive of this classification. Biomarker Tumor block: 11/27/2022 [facility] Block(s) [id number] 5:08 PM INJECTION OPERATOR Disclaimer "Some tests reported 11/27/2022 [facility] here may have been 5:08 PM developed and INJECTION OPERATOR performance characteristics determined by [facility] Pathology and Laboratory Medicine. These tests have not been specifically cleared or approved by the U.S. Food and Drug Administration. If applicable, controls were reviewed and showed appropriate reactivity." Specimen (Source) Anatomical Collection Method Collection Time Re ceived Time Location / / Volume Laterality Tissue 10/16/2022 11/24/2022 3:02 PM INJECTION OPERATOR Alexa Alvarez MD LAB PATHOLOGY ORDERABLES Performing Organization Address City/State/ZIP Code Phon e Number [facility] [place] [phone] [place] [address] [place] after 06/10/2022 Insurance Payer Benefit Plan / Subscriber ID Effective Phone Address T ype Group Dates MEDICARE MEDICARE PART A [id number] 2010-Pres [phone] [place] Medicare AND B ent 782 SOLUTIONS [address] MECHANICS [place]IN[place] [phone] [place] [id number] 2022-Pres [address] Medicaid TRADITIONAL TRADITIONAL ent [id number] [place] [address] Advance Directives Code Status Date Activated Date Inactivated Comments Full Code 02/06/2023 1:33 AM 02/16/2023 6:41 PM Code Status Date Activated Date Inactivated Comments Full Code 01/26/2023 5:50 PM 02/01/2023 8:34 PM Full Code 01/11/2023 10:19 PM 01/18/2023 9:39 PM Full Code 12/09/2022 10:42 PM 12/15/2022 9:30 PM Care Teams Sole Polisher Relationship Specialty Start Date End Date Bina Obando PCP - External Otolaryngology 11/12/22 MD Joana Referring [address] [place] [phone] Kenya Agarwal MD PCP - General Head and Neck Surgery 11/12/22 [address] [place], [place] [id number] Trent Irving MD Family Practice 11/26/22 [address] [place], [place] [id number] Randall Sheriff [facility] Practice 11/26/22 MD Maciej [address] [place], [place] [address] Vignesh Waddell, Pulmonary Medicine 11/26/22 [address] [place] [address] Naa Miller, Cardiology 11/26/[address] [id number] Tapan Harper, Gastroenterology 11/26/22 [address] [place], [place] [address] Rafael Rosas, Ophthalmology 11/26/22 [address] [place] [phone] Suzanne Mcgrath MD Consulting Physician Ophthalmology 12/29/[address] [place] [address] [id number]
[2023-06-10] MEDS ORDERED: METHYLPREDNISOLONE 125 MG INJ ONE (05:49)
[2023-06-10] MEDS ORDERED: predniSONE 20 MG TAB ONE (05:49)
[2023-06-10] MEDS ORDERED: HYDROMORPHONE HCL 1 MG/ML INJ ONE (05:49)
[2023-06-10] MEDS ORDERED: ONDANSETRON 4 MG/2 ML VIAL ONE (05:50)
[2023-06-10] MEDS ORDERED: NA CHLORIDE 0.9% 1,000 ML ONE (05:50)
[2023-06-10] MEDS ORDERED: IPRATROPIUM BROM 0.5MG/2.5ML ONE (05:50)
[2023-06-10] MEDS ORDERED: LEVALBUTEROL 1.25 MG/3 ML NEB ONE (05:50)
[2023-06-10 06:00] LABS: Absolute Lymphocytes (CBC) 1.7 K/uL (0.7-4.9); Hematocrit 43.1 % (36.0-45.0); MPV 8.8 fL (7.6-11.3); Platelets 175 thou/uL (152-406); RBC Red Blood Cell Count 4.59 M/uL (3.86-4.86)
[2023-06-10 06:02] LABS: Protime INR 1.05
[2023-06-10 06:25] LABS: Albumin 3.3 g/dL (3.4-5.0); Bilirubin Direct 0.1 mg/dL (0-0.2); Bilirubin Indirect, Calculated 0.3 mg/dL (0.2-0.8); Bilirubin Total 0.4 mg/dL (0.2-1.0); Magnesium 1.3 mg/dL (1.6-2.4); Potassium 3.4 mEq/L (3.5-5.1); Protein, Total 7.2 g/dL (6.4-8.2); Troponin High Sensitivity 6.5 pg/mL (<58.9)
--- OUTSIDE RECORDS SUMMARY | 2023-06-10 06:46 | XMS REPORT | Continuity of Care Document ---
:1965 Author Organization [facility] t Address [address] [facility] [address] [place] [address] Care Team Providers Name Role Phone JARON IRVING Primary Care Physician Unavailable SYSTEM, PROVIDER NOT IN Attending Clinician Unavailable Tapan Harper Attending Clinician Unavailable Zacarias Rodriguez Attending Clinician Unavailable NEREIDA SHERIFF Attending Clinician Unavailable Jenny GARBER, Jenna Attending Clinician Unavailable [place] LVN Attending Clinician Unavailable Lorena Hdez APRN Attending Clinician [phone] Nereida Addison MD Attending Clinician DESTINEY AMES Attending Clinician Unavailable Destiney Ames MD Attending Clinician Lee Monique MD Attending Clinician Marily Garcia APRN Attending Clinician THOSANI, NO N. Attending Clinician Unavailable Raymond GRIFFIN, No Otto Attending Clinician Jigar GARBER, Freya Benjamin Attending Clinician Nereida Ferrer Attending Clinician Unavailable Jerry GARBER, Akil Peñaloza Attending Clinician Unavailable Kyle GARBER, Deyanira Attending Clinician Unavailable Jus GRIFFIN, Winter Rubalcava Attending Clinician Kenny Power MD, Vaibhav Attending Clinician WINTER LUU Attending Clinician Unavailable Martha GARBER, Kyung Attending Clinician Unavailable Evan GRIFFIN, Miguel Fernandez Attending Clinician Any GRIFFIN, Kenya Smith Attending Clinician Clint MEDINA, Lian Benjamin Attending Clinician Torin GRIFFIN, Rosana Attending Clinician Eri Attending Clinician Unavailable Kandy GARBER, Viry Singer Attending Clinician Angela Lopes APRN Attending Clinician Lan GALE, Lindy Sotelo Attending Clinician [phone] Doctor Unassigned, Dunlo Attending Clinician Unavailable LORENA HDEZ Attending Clinician Unavailable Doyle GARBER, Tita Mayorga Attending Clinician Unavailable Cony Santillan APRN Attending Clinician Tonny GARBER, Anthony Benjamin Attending Clinician Unavailable Ismael GRIFFIN, Deneen Eckert Attending Clinician Rachid GRIFFIN, Felisa Attending Clinician Brooks GRIFFIN, Romana Attending Clinician Esthela GRIFFIN, Amanda Attending Clinician Estella GRIFFIN, Thao Calix. Attending Clinician Bridget GRIFFIN, Derrick Attending Clinician Felipe GRIFFIN, Kofi Vega Attending Clinician [phone] Phyllis Rangel MD, Ashleigh Attending Clinician [phone] KOFI ABDI Attending Clinician Unavailable Teo GRIFFIN, Dustin Attending Clinician KENYA AGARWAL Attending Clinician Unavailable Will CCC-FOAM CUTTING SUPERVISOR, Charla Eckert Attending Clinician DERRICK GILL Attending Clinician Unavailable THAO ROMERO V. Attending Clinician Unavailable VAIBHAV ROSARIO Attending Clinician Unavailable Amanda GRIFFIN, Jad Attending Clinician Karissa GRIFFIN, Jaycee Attending Clinician Nghia GRIFFIN, Brock Attending Clinician Kt Deshpande MD, Elian Attending Clinician [phone] Glenda Madrigal APRN Attending Clinician ELIAN DOS SANTOS Attending Clinician Unavailable Jonathan GARBER, Felisa Costa Attending Clinician JAYCEE HANCOCK Attending Clinician Unavailable Williams GRIFFIN, Rogerio Attending Clinician [phone] Regulo GRIFFIN, Reva Attending Clinician Nico GRIFFIN, Roberto Carlos Attending Clinician Estella GRIFFIN, Chung Garcia Attending Clinician [phone] Lee DO, Mayokatya Attending Clinician BROCK DIOR Attending Clinician Unavailable RADIOLOGY Attending Clinician Unavailable Sherif [facility]-FOAM CUTTING SUPERVISOR, Mukund Cervantes Attending Clinician Unabritney Ordaz MD, Karen Attending Clinician Geo GARBER, Brittni Benjamin Attending Clinician Unavailable Alcides GRIFFIN, Suzanne Attending Clinician Ankita ROSLAES, Otilia Attending Clinician Dony Calhoun MA Attending [...] Unavailable Emmanuel GRIFFIN, Matthew Choe Attending Clinician [phone] Red Posada APRN Attending Clinician Enrique GRIFFIN, David Alvarado Attending Clinician Antonio GRIFFIN, Alexa Attending Clinician Jeffy GARBER, Ofe Bourgeois Attending Clinician Berkley Aguayo MD Attending Clinician Unavailable Elana Child RN Attending Clinician RED POSADA Attending Clinician Unavailable Chloe Lopez L Attending Clinician Lab, Ang - Db Attending Clinician Unavailable BLANCHE OSORIO Attending Clinician Unavailable Jo MERCHANDISE FLOW TEAM LEADERBlanche Rollins Attending Clinician Pob, Adc Lab Main Attending Clinician Unavailable Angelica Mathis MD Attending Clinician Angelica MATHIS Attending Clinician Unavailable GERMAIN CALERO Attending Clinician Unavailable JACQUELIN GONZALEZ Attending Clinician Unavailable Jacquelin Gonzalez NP Attending Clinician Dewayne Wise MD Attending Clinician DEWAYNE WISE Attending Clinician Unavailable Adam Sierra MD Attending Clinician Rishabh GRIFFIN, India Kellogg Attending Clinician [phone] Germain Ortega Attending Clinician Luan Coughlin MD Attending Clinician Mimi Attending Clinician Unavailable Nurse, Adc Pob Immunization Attending Clinician Unavailable Miguel Patel DO Attending Clinician MIGUEL PATEL Attending Clinician Unavailable Jaimee Ferrer LMSW Attending Clinician Cbc, Medicare Wellness Howard Mcpherson Attending Clinician UnavailDUSTIN Alegre Attending Clinician Unavailable Mary Sanchez RN Attending Clinician Unavailable AMANDA BRAND Attending Clinician [...] Casiano Attending Clinician Kimberly Ng Attending Clinician Aleax Guerrero Attending Clinician Estefanía Irving-Chung H Admitting Clinician Unavailable DESTINEY AMES Admitting Clinician Unavailable Aguilar_M Admitting Clinician Unavailable THAO ROMERO V. Admitting Clinician Unavailable JAYCEE HANCOCK Admitting Clinician Unavailable CHUNG ROMERO THI-ESTEFANÍA Admitting Clinician Unavailable GRACIELA TELLEZ Admitting Clinician Unavailable JACQUELIN GONZALEZ Admitting Clinician Unavailable DEWAYNE WISE Admitting Clinician Unavailable Mimi Admitting Clinician Unavailable ZACARIAS RODRIGUEZ Admitting Clinician Unavailable Alexa Guerrero Admitting Clinician Payers Payer Name Policy Type Policy Number Effective Date Expiration Date [facility] MEDICARE PART A [id number] 2010 \\T\\ B 00:00:00 [place]ID [place] [id number] 2012 00:00:00 [place] [id number] 2010 [employer] 00:00:00 [place] [id number] [place] Problems Condition Condition Condition Status Onset Resolution Last Treating Co mments Source Name Details Category Date Date Treatment Clinician Date FPC FPC Disease Active Uni vers use of use of 5-31 [place] Rob [facility] Acute Acute Disease Active Univers thrombosis thrombosis 4-10 it y of of right of right 00:00: [place] axillary axillary 00 vein vein [facility] Bilateral Bilateral Disease Active Uni vers acute acute 4-10 [place] thrombosis [place] of basilic of basilic 00 veins veins [facility] Thrombosis Thrombosis Disease Active U nivers of left of left 4-10 ity of cephalic cephalic 00:00: [place] vein vein 00 MD Liane olivier [facility] Febrile Febrile Disease Active Univers neutropeni neutropeni 4-08 it y of a a 00:00: [place] 00 MD Liane olivier [facility] Shortness Shortness Disease Active Uni vers of breath of breath 4-08 ity of 00:00: [place] 00 MD Liane olivier [facility] Central Central Disease Active Univers line line 4-08 [place] of associated associated [place] bloodstrea bloodstrea 00 MD napoleon Rob infection infection n [facility] Center Disorder Disorder Disease Active Unive rs of fluid of fluid 4-08 ity of AND/OR AND/OR 00:00: [place] electrolyt electrolyt 00 [facility] 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 [place] openia openia 00 MD Liane olivier [facility] Hematochez Hematochez Disease Active U nivers ia ia 3-29 ity of 00:00: [place] 00 MD Liane olivier [facility] Abdominal Abdominal Disease Active Uni vers pain, pain, 3-28 ity of epigastric [place]igastric [place] 00 [place] Rob [facility] 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 [place] eulalio eulalio 00 malnutriti malnutriti An derso on on n [facility] Insulin Insulin Disease Active Univers resistance resistance 3-20 it y of 00:00: [place] 00 MD Rob [facility] History of History of Disease Active U nivers fall fall 3-14 ity of 00:00: [place] 00 MD Rob [facility] 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 00:00: [place] with with 00 hyperglyce hyperglyce An derso moncho moncho [facility] Malnutriti Malnutriti Disease Active U nivers on of on of 3-14 ity of moderate moderate 00:00: [place] degree degree 00 MD Rob [facility] Mucositis Mucositis Disease Active Uni vers due to due to 3-13 ity of antineopla [place]ineopla [place] stic stic 00 therapy [facility] Swallowing Swallowing Disease Active U nivers painful painful 3-13 ity of 00:00: [place] 00 MD Liane olivier [facility] Current Current Disease Active Univers use of use of 2-09 ity of insulin insulin 00:00: [place] 00 MD Liane olivier [facility] Adverse Adverse Disease Active Univers effect of effect of 2-09 ity of glucocorti glucocorti 00:00: [place] coids and coids and 00 synthetic synthetic Bandar rso analogues analogues [facility] Headache Headache Disease Active Unive rs 2-08 ity of 00:00: [place] 00 MD Liane olivier [facility] 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 00:[place] of [place] 00 MD victor manuel rush An derso x, NOS x, NOS n [facility] SOB SOB Disease Active 2021-11 Univers (shortness [...] 2021-11 Unive rs 0-25 ity of 00:00: [place] [facility] Diabetes Diabetes Problem Active 2020-11 [...] of on on 00:00: [place] 00 [facility] Gastroesop Gastroesop Disease Active U charis hageal hageal 07-28 ity of reflux reflux 00:00: [place] disease disease 00 MD [facility] Other Other Disease Active Univers hyperlipid hyperlipid 9 it y of emia emia 00:00: [place] 00 MD [facility] Type 2 Type 2 Disease Active Univers diabetes diabetes 07-28 ity of mellitus mellitus 00:00: [place] without without 00 Medical complicati complicati Br anch on, with on, with long-term long-term current current use of use of insulin insulin Bariatric Bariatric Disease Active Uni vers surgery surgery 07-28 ity of status status 00:00: [place] [facility] Hyperlipid Hyperlipid Disease Active 2018 U nivers emia, emia, 9 ity of [...] PAIN PAIN 5-30 13:34:00 l Active 00:00: [place] 03/30/2018 00 [facility] [place] REFLUX-K21 REFLUX-K2 Diagnosis Active 2014-112015-11-08 Memoria .9 1.9 Active 12-19 12:57:00 l 10/18/2015 00:00: [place] olivier [place] ACS (acute ACS (acute Disease Active U nivers coronary coronary 3-16 ity of syndrome) syndrome) [place] 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 [place] malnutriti malnutriti on on [facility] Cough Cough Problem Resolve 2019-06-28 [place] jenna (finding) (finding) d 15:29:48 l Resolved [place] Problem 06/28/2019 2 weeks ago,, cough, cold , flu; better now [facility] [place] Infection Infection Problem Resolve 2019-06-28 Memoria of ear of ear d 15:29:48 l (disorder) (disorder) He rmann Resolved Problem 06/28/2019 [facility] [place] Irregular Irregular Problem Resolve 2019-06-28 Memoria heart beat heart beat d 15:29:48 l (finding) (finding) Herm flakita Resolved Problem 06/28/2019 [facility] [place] Muscle Muscle Problem Resolve 2019-06-28 Mem oria pain pain d 15:29:48 l (finding) (finding) Herm flakita Resolved Problem 06/28/2019 [facility] [place] Anxiety Anxiety Problem Active 2019-06-28 Me moria (finding) (finding) 15:29:48 l Active [place] Problem 06/28/2019 [facility] [place] Backache Backache Problem Active 2019-06-28 Memoria (finding) (finding) 15:29:48 l Active [place] Problem 06/28/2019 [facility] [place] Gout Gout Problem Active 2019-06-28 Memor ia (disorder) (disorder) 15:29:48 l Active [place] Problem 06/28/2019 [facility] [place] Hypertensi Hypertens Problem Active 2019-06-28 Memoria ve rosales 15:29:48 l disorder, disorder, Herm flakita systemic systemic arterial arterial (disorder) (disorder) Active Problem 06/28/2019 [facility] [place] Insomnia Insomnia Problem Active 2019-06-28 Memoria (disorder) (disorder) 15:29:48 l Active [place] Problem 06/28/2019 [facility] [place] 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 15:29:48 l (disorder) (disorder) He rmann Active Problem 06/28/2019 [facility] [place] Lumbar Lumbar Problem Active 2019-06-28 Dillon jenna radiculopa radiculopa 15:29:48 l thy thy [place] (disorder) (disorder) Active Problem 06/28/2019 [facility] Osteoarthr Osteoarth Problem Active 2019-06-28 Memoria itis ritis 15:29:48 l (disorder) (disorder) He rmann Active Problem 06/28/2019 [facility] Peripheral Problem Active 2019-06-28 M emoria nerve Peripheral 15:29:48 l disease nerve [place] (disorder) disease (disorder) Active Problem 06/28/2019 [facility] Sleep Sleep Problem Active 2019-06-28 Memor ia apnea apnea 15:29:48 l (finding) (finding) Herm flakita Active Problem 06/28/2019 [facility] [place] Cholestero Cholester Problem Active 2015-11-11 Memoria l ol 01:38:42 l (substance (substance He rmann ) ) Active Problem 11/11/2015 [facility] [place] GASTRO-ESO GASTRO-ES Diagnosis Active 2015-11-08 Memoria PHAGEAL OPHAGEAL 12:57:00 l REFLUX REFLUX [place] DISEASE DISEASE WITHOUT WITHOUT Active [facility] [place] Intractabl Intractabl Disease Resolve 2023-05-25 2023-05-25 Univers e nausea e nausea d 02-05 00:00:00 13:30:40 it y of and and 00:00: [place] vomiting vomiting 00 MD [facility] Hemoglobin Hemoglobin Disease Resolve 2023-05-25 2023-05-25 Univers A1c A1c d 01-12 00:00:00 13:30:55 ity of greater greater 00:00: [place] than 10 than 10 00 percent percent [place] indicating indicating n poor poor Cancer diabetic diabetic Center control control FPC FPC Disease Resolve 2023-05-25 2023-05-25 Univers current current d 12-10 00:00:00 13:30:49 ity of use of use of 00:00: [place] systemic systemic 00 steroid [facility] Allergies, Adverse Reactions, Alerts Allergy Allergy Status Severity Reaction(s) Onset Inactive Treating Comm ents Source Name Type Date Date Clinician Pregabal Propensi Active Other (See depressio Univers in ty to Comments) 3-14 n ity of adverse 00:00: [place] reaction 00 MD stan olivier [facility] PREGABAL DRUG Active Other 2022-0 MD IN INGREDI 3-14 Anderso 00:00: n [...] n 00 Metoclop Drug Active Other (See 2021-11 Univ ers ramide Allergy Comments) 2-16 ity of Hcl 00:00: [place] 00 MD Liane olivier [facility] METOCLOP DRUG Active Other 2021-11 MD RAMIDE [...] 00:00: n 00 METOCLOP DRUG Active Other 2021- MD RAMIDE INGREDI 2-16 Anderso HCL 00:00: n 00 METOCLOP DRUG Active Other 2021- MD RAMIDE INGREDI 2-16 Anderso HCL 00:00: n 00 METOCLOP DRUG Active Other 2021- MD RAMIDE INGREDI 2-16 Anderso HCL 00:00: n 00 METOCLOP DRUG Active Other 2021- MD RAMIDE INGREDI 2-16 Anderso HCL 00:00: n 00 METOCLOP DRUG Active Other 2021-11 MD RAMIDE INGREDI 2-16 Anderso HCL 00:00: n 00 METOCLOP DRUG Active Other 2021- MD RAMIDE INGREDI 2-16 Anderso HCL 00:00: n 00 METOCLOP DRUG Active Other 2021-11 RAMIDE INGREDI 2-16 Anderso HCL 00:00: n 00 ORANGE DRUG Active Low N/V 2021-11 Univers JUICE INGREDI 1-21 ity of 00:00: [place] 00 [facility] [place] Drug Active Nausea 2021-11 Univers Juice Allergy and/or 1-21 ity of Vomiting 00:00: [place] 00 [facility] Kiwi Drug Active Other (See Univer s (Actinid Allergy Comments) 3- ity of ia 00:00: [place] Chinensi 00 s) Liane olivier [facility] Propensi Active Other - See Uni vers ty to comments 01-25 ity of adverse 00:00: [place] reaction 00 [facility] KIWI DRUG Active Unknown-Cmnt Univ ers INGREDI 3 ity of 00:00: [place] 00 [facility] KINC Drug Active High Anaphylaxis (ACTINID Class 3-27 Anderso [place] 00:00: n CHINENSI 00 S) [place] Drug Active GI Univers Juice Allergy Intolerance 6-18 ity of 00:00: [place] 00 MD Liane olivier [facility] [place] ORANGE DRUG Active Low NandV 2020- MD JUICE INGREDI 6-18 Anderso 00:00: n 00 doxycycl DA Active U 2020-0 [facility] in[facility] 2-06 [place] 00:00: d 00 [facility] metoclop DA Active U 2020-0 [facility] ramide 2-06 [place] 00:00: d 00 [facility] doxycycl DA Active U VOMITING 2020-0 [facility] in[facility] 2-06 [place] 00:00: d 00 [facility] metoclop DA Active U UNKNOWN 2020-0 [facility] ramide 2-06 [place] 00:00: d 00 [facility] [place] Drug Active Nausea And 2018- And Kiwi [facility] ORANGE Allergy Active Med N\\T\\V 2018-[address] [facility] Center [place] Propensi Active Nausea 2018- Univers ty to and/or 7 ity of adverse Vomiting 00:00: [place] reaction [address] [facility] ORANGE DRUG Active Med N/V 2018-0 Univers INGREDI 7-11 ity of 00:00: [place] 00 [facility] Doxycycl Drug Active Nausea And [facility]om[facility] 3-16 [facility] Medical 00 Center Metoclop Drug Active Other (See Told by CARMEN Almeida ramide Allergy Comments) 316 anesthesi Nima es 00:00: ologist Medical 00 that she Center should add to her allergies following a procedure DOXYCYCL Allergy Active High N\\T\\V [facility] INE 3-16 [facility] 00:[facility] Medical [facility] Center METOCLOP Allergy Active High Other [facility] RAMIDE 3-16 [facility] 00:00: Medical 00 [place] Doxycycl Propensi Active Nausea Univer s ine ty to and/or 16 ity of adverse Vomiting 00:00: [place] reaction 00 [facility] Metoclop Propensi Active Unknown - Told by Oscar ba ty to See comments 16 anesthesi i ty of Hcl adverse 00:00: ologist [place] reaction 00 that she Medica l s should Branch add to her allergies following a procedure DOXYCYCL DRUG Active High N/V Univers INE INGREDI 3-16 ity of 00:00: [place] 00 [facility] [place] METOCLOP DRUG Active Unknown-Cmnt Oscar LISAIDE INGREDI 3-16 ity of HCL 00:00: [place] 00 [facility] METOCLOP DRUG Active High N/V 0 Univers RAMIDE INGREDI 3-16 ity of 00:00: [place] 00 [facility] METOCLOP DRUG Active High Nausea 2014-0 [...] l [place] NO KNOWN Allergy Active [facility] Family History Family Member Diagnosis Comments Start Date Stop Date Source Cousin [facility] Ca mter Center Natural father Diabetes [facility] Ca ncer Center Natural father Glaucoma [facility] Ca ncer Center Natural father Leukemia [facility] Ca ncer Center Maternal uncle Cancer [facility] Ca ncer Center Maternal uncle Colon cancer [facility] Natural mother -[facility] Natural mother Diabetes [facility] Ca [facility] Center Natural mother Glaucoma [facility] Ca [facility]cer Center Paternal grandfather [facility] Paternal grandfather Leukemia [facility] [place] Paternal grandmother [facility] Natural sister Ovarian cancer Univer sity of [place] MD Kulwant Ca RUST Social History Social Habit Start Date Stop Date Quantity Comments Source History of tobacco Cigarette Smoker University of use Bere bates [facility] History SDOH University o f Transport Non-Med [facility] Gender identity Universit y of [facility] [place] [facility] Exposure to 2023-04-12 2023-04-22 Not sure University of SARS-CoV-2 (event) 00:00:00 12:16:00 [facility] History of Social 2023-04-08 2023-04-08 Univers ity of function 00:00:00 00:00:00 [facility] [place] [facility] Tobacco use and 2022-11-26 2022-11-26 Smokeless Universit y of exposure 00:00:00 00:00:00 tobacco non-user [facility] Cigarettes smoked 2022-11-26 2022-11-26 Univers ity of current (pack per 00:00:00 00:00:00 [facility] ) - Reported Cancer Ce nter Cigarette 2022-11-26 2022-11-26 University of pack-years 00:00:00 00:00:00 [place] MD Suraj bates [facility] Alcohol intake 2022-01-09 2022-01-09 Ex-drinker [facility] 00:00:00 00:00:00 (finding) [facility] Tobacco Comment 2022-01-08 2022-01-08 only as teenager [facility] 00:00:00 00:00:00 [facility] Center History SDOH Social 2019-08-25 2019-08-25 3 Unive rsity of Connections Phone 00:00:00 00:00:00 [facility] History SDOH Social 2019-08-25 2019-08-25 1 Unive rsity of Connections Get 00:00:00 00:00:00 [facility] ical Together Branch History SDOH Social 2019-08-25 2019-08-25 1 Unive rsity of Connections Presybeterian 00:00:00 00:00:00 [facility] [place] [facility] History SDOH Social 2019-08-25 2019-08-25 2 Unive rsity of Connections 00:00:00 00:00:00 [facility] Branch History SDOH Social 2019-08-25 2019-08-25 1 [...] Social History 2015-11-07 2015-11-07 [facility] Vickie logan 16:48:16 16:48:16 Sex Assigned At [address] [facility] 00:00:00 00:00:00 [facility] Smoking Status Start Date Stop Date Source Never Smoker [facility] Ex-smoker 2022-11-26 00:00:00 2022-11-26 00:00:00 [facility] [place] [facility] Medications Ordered Filled Start Stop Current Ordering Indication Dosage Frequency Signature Comments Components Source Medication Medication Date Date Medication? Clinician (SIG) Name Name LISINOPRIL Yes [id number] TAKE 1/2 Univers 40 mg 8-07 TABLET BY ity of tablet 00:00: MOUTH [place] 00 TWICE Medical DAILY Branch LISINOPRIL Yes [id number] TAKE 1/2 Univers 40 mg 8-07 TABLET BY ity of tablet 00:00: MOUTH [place] 00 TWICE Medical DAILY Branch HYDROcodone Yes [id number] 1{tbl} Take 1 Un ally -acetaminop 8-07 tablet by ity of hen 10-325 00:00: mouth [place] mg tablet 00 every 6 Medical (six) Branch hours as needed for Pain (scale 4-6). Indication s: chronic pain iopamidol 2022- No [id number] 75mL 75 mL, U nivers (ISOVUE 05-27 Intravenou ity o f 370-500 mL) 04:45: 03:54 s, ONCE, 1 [place] injection 00 :00 dose, On Medica l 75 mL Wed Branch 05/26/23 at 2345, Routine aspirin No 324mg 324 mg, Unive rs chewable 05-27 Oral, ity of tablet 324 04:15: 03:32 ONCE, 1 [place] mg 00 :00 dose, On Medical Wed Branch 05/26/23 at 2315, Routine ondansetron No 4mg 4 mg, Slow [facility] (ZOFRAN 05-27 IV Push, ity of (PF)) 03:45: 03:33 ONCE, 1 [place] injection 4 00 :00 dose, On Medi mari mg Wed Branch 05/26/23 at 2245, ELOISA morpHINE (4 2022- No 4mg 4 mg, Slow [facility] mg/mL) 05-27 IV Push, ity of injection 4 03:30: 03:33 ONCE, 1 [place] mg 00 :00 dose, On Medical Wed Branch 05/26/23 at 2230, STAT hydrALAZINE 2023-0 Yes [id number] 100mg Take 1 [facility] 100 mg 7-27 tablet by ity of tablet 00:00: mouth in [place] 00 the Medical morning Branch and 1 tablet at noon and 1 tablet in the evening. hydrALAZINE 0 Yes [id number] 100mg Take 1 [facility] 100 mg 7-27 tablet by ity of tablet 00:00: mouth in [place] 00 the Medical morning Branch and 1 tablet at noon and 1 tablet in the evening. hydrALAZINE Yes [id number] 100mg Take 1 [facility] 100 mg 7-27 tablet by ity of tablet 00:00: mouth in [place] 00 the Medical morning Branch and 1 tablet at noon and 1 tablet in the evening. hydrALAZINE Yes [id number] 100mg Take 1 [facility] 100 mg 7-27 tablet by ity of tablet 00:00: mouth in [place] [address] the Medical morning Branch and 1 tablet at noon and 1 tablet in the evening. lisinopril Yes 40mg Take 1 Un[facility] (PRINIVIL,Z 7-26 tablet (40 it y of ESTRIL) 40 16:36: mg) by [place] mg tablet 07 mouth MD every [place] morning. n [facility] allopurinol Yes prevention 300mg Take 1 [facility] (ZYLOPRIM) 7-26 of acute tablet ity of 300 mg 16:36: gout attack (300 mg) [place] tablet 07 by mouth MD twice [place] daily. [facility] colchicine Yes prevention .6mg Take 1 [facility] (COLCRYS) 7-26 of acute tablet ity of 0.6 mg 16:36: gout attack (0.6 mg) [place] tablet 07 by mouth MD daily. [facility] dicyclomine Yes 10mg Take 1 Univ ers (BENTYL) 10 7-26 capsule ity o f mg capsule 16:36: (10 mg) by [place] 07 mouth 3 MD (three) [place] times a n day. Cancer Center metFORMIN Yes Type 2 1000mg Take 1 Un ally (GLUCOPHAGE 7-26 diabetes tablet it y of ) 1000 mg 00:00: mellitus (1,000 mg) [place] tablet 00 with by mouth 2 MD hyperglycem (two) Anderso ia times a n day with Cancer meals. Center semaglutide Yes Type 2 1mg Inject 1 Univers (Ozempic) 1 7-26 diabetes mg under ity of mg/dose (4 00:00: mellitus the skin [place] mg/3 mL) 00 with every 7 MD ricky hyperglycem days. [facility] ia [facility] hydrocortis Yes Abnormal Take 2 Univers one [...] 4-6). Indication s: chronic pain fluticasone Yes [id number] 2{spray Use 2 [facility] propionate 7-05 } Sprays in ity of 50 00:00: each [place] mcg/actuati 00 nostril in Me dical on nasal the Branch spray morning. HYDROcodone Yes [id number] 1{tbl} Take 1 Un ally -acetaminop 7-05 tablet by ity of hen 10-325 00:00: mouth [place] mg tablet 00 every 6 Medical (six) Branch hours as needed for Pain (scale 4-6). Indication s: chronic pain fluticasone Yes [id number] 2{spray Use 2 [facility] propionate 7-05 } Sprays in ity of 50 00:00: each [place] mcg/actuati 00 nostril in Me dical on nasal the Branch spray morning. HYDROcodone 0 Yes [id number] 1{tbl} Take 1 Un ally -acetaminop 7-05 tablet by ity of hen 10-325 00:00: mouth [place] mg tablet 00 every 6 Medical (six) Branch hours as needed for Pain (scale 4-6). Indication s: chronic pain fluticasone Yes [id number] 2{spray Use 2 [facility] propionate 7-05 } Sprays in ity of 50 00:00: each [place] mcg/actuati 00 nostril in Me dical on nasal the Branch spray morning. HYDROcodone Yes [id number] 1{tbl} Take 1 Un ally -acetaminop 7-05 tablet by ity of hen 10-325 00:00: mouth [place] mg tablet 00 every 6 Medical (six) Branch hours as needed for Pain (scale 4-6). Indication s: chronic pain fluticasone Yes [id number] 2{spray Use 2 [facility] propionate 7-05 } Sprays in ity of 50 00:00: each [place] mcg/actuati 00 nostril in Me dical on nasal the Branch spray morning. HYDROcodone 0 Yes [id number] 1{tbl} Take 1 Un ally -acetaminop 7-05 tablet by ity of hen 10-325 00:00: mouth [place] mg tablet 00 every 6 Medical (six) Branch hours as needed for Pain (scale 4-6). Indication s: chronic pain fluticasone Yes [id number] 2{spray Use 2 [facility] propionate 7-05 } Sprays in ity of 50 00:00: each [place] mcg/actuati 00 nostril in Me dical on nasal the Branch spray morning. fluticasone Yes [id number] 2{spray Use 2 [facility] propionate 7-05 } Sprays in ity of 50 00:00: each [place] mcg/actuati 00 nostril in Me dical on nasal the Branch spray morning. HYDROcodone 2022- No [id number] 1{tbl} Take 1 U nivers -acetaminop 7-05 08-07 tablet by it y of hen 10-325 00:00: 00:00 mouth [place] mg tablet 00 :00 every 6 Medical (six) Branch hours as needed for Pain (scale 4-6). Indication s: chronic pain lisinopril Yes 40mg Take 1 Unive rs (PRINIVIL,Z 6-22 tablet (40 it y of ESTRIL) 40 15:48: mg) by [place] mg tablet 03 mouth MD every [place] morning. Cancer [place] allopurinol Yes prevention 300mg Take 1 Univers (ZYLOPRIM) 6-22 of acute tablet ity of 300 mg 15:48: gout attack (300 mg) [place] tablet 03 by mouth MD twice Anders[place] daily. [facility] colchicine Yes prevention .6mg Take 1 Univers (COLCRYS) 6-22 of acute tablet ity of 0.6 mg 15:48: gout attack (0.6 mg) [place] tablet 03 by mouth MD daily. [facility] dicyclomine Yes 10mg Take 1 Univ ers (BENTYL) 10 6-22 capsule ity o f mg capsule 15:48: (10 mg) by Christelle love 03 mouth 3 MD (three) [place] times a n day. [facility] Center lisinopril Yes 40mg Take 1 Unive rs (PRINIVIL,Z 6-22 tablet (40 it y of ESTRIL) 40 15:48: mg) by [place] mg tablet 03 mouth MD every [place] morning. [facility] allopurinol Yes prevention 300mg Take 1 Univers (ZYLOPRIM) 6-22 of acute tablet ity of 300 mg 15:48: gout attack (300 mg) [place] tablet 03 by mouth MD twice Anderso daily. [facility] colchicine Yes prevention .6mg Take 1 Univers (COLCRYS) 6-22 of acute tablet ity of 0.6 mg 15:48: gout attack (0.6 mg) [place] tablet 03 by mouth MD daily. [facility] dicyclomine Yes 10mg Take 1 [...] [place] tablet 03 by mouth MD daily. [facility] dicyclomine Yes 10mg [...] 54 mouth MD every [place] morning. Cancer Center [...] [place] tablet 54 by mouth MD daily. [facility] dicyclomine Yes 10mg Take 1 [...] 00 MOUTH MD EVERY 8 [place] HOURS [facility] gabapentin 2022-0 Yes Chronic TAKE 1 Un ally (NEURONTIN) 6-09 pain TABLET(800 it y of 800 mg 00:00: MG) BY [place] tablet 00 MOUTH MD EVERY 8 [place] HOURS [facility] gabapentin 2022-0 Yes Chronic TAKE 1 Un ally (NEURONTIN) 6-09 pain TABLET(800 it y of 800 mg 00:00: MG) BY [place] tablet 00 MOUTH MD EVERY 8 [place] HOURS [facility] gabapentin 2022-0 Yes Chronic TAKE 1 Un ally (NEURONTIN) 6-09 pain TABLET(800 it y of 800 mg 00:00: MG) BY [place] tablet 00 MOUTH MD EVERY 8 Anders[place] HOURS [facility] gabapentin 2022-0 Yes Chronic TAKE 1 Un ally (NEURONTIN) 6-09 pain TABLET(800 it y of 800 mg 00:00: MG) BY [place] tablet 00 MOUTH MD EVERY 8 [place] HOURS [facility] fluticasone Yes [id number] 2{spray Use 2 [facility] propionate 6-08 } Sprays in ity of 50 00:00: each [place] mcg/actuati 00 nostril in Me dical on nasal the Branch spray morning. fluticasone Yes [id number] 2{spray Use 2 [facility] propionate 6-08 } Sprays in ity of 50 00:00: each [place] mcg/actuati 00 nostril in Me dical on nasal the Branch spray morning. fluticasone 2022- No [id number] 2{spray Use 2 [facility] propionate 6-08 07-05 [...] [id number] 1{tbl} Take 1 U nivers -acetaminop 04-08 06-16 tablet by it y of hen 10-325 00:00: 04:59 mouth [place] mg tablet 00 :00 every 6 Medical (six) Branch hours as needed for Pain (scale 4-6) for up to 7 days. Indication s: chronic pain apixaban Yes buttermaker continuous churn 5mg Take 1 Un ally (Eliquis) 5 5-31 use of tablet (5 i ty of mg tablet 00:00: anticoagula mg) by [place] 00 nt mouth MD every 12 [place] (twelve) n hours. Cancer [place] apixaban Yes FPC 5mg Take 1 Un ally (Eliquis) 5 5-31 use of tablet (5 i ty of mg tablet 00:00: anticoagula mg) by [place] 00 nt mouth MD every 12 [place] (twelve) n hours. [facility] [place] apixaban Yes FPC 5mg Take 1 Un ally (Eliquis) 5 5-31 use of tablet (5 i ty of mg tablet 00:00: anticoagula mg) by [place] 00 nt mouth MD every 12 [place] (twelve) n hours. [facility] [place] apixaban Yes buttermaker continuous churn 5mg Take 1 Un ally (Eliquis) 5 5-31 use of tablet (5 i ty of mg tablet 00:00: anticoagula mg) by [place] 00 nt mouth MD every 12 [place] (twelve) n hours. [facility] Center apixaban Yes buttermaker continuous churn 5mg Take 1 Un ally (Eliquis) 5 5-31 use of tablet (5 i ty of mg tablet 00:00: anticoagula mg) by [place] 00 nt mouth every 12 [place] (twelve) n hours. Cancer Center promethazin Yes TAKE 5 ML U nivers e-dextromet 5-30 BY MOUTH ity of horphan 00:00: EVERY 6 [place] (PROMETHAZI 00 HOURS MD WEINSTEIN) NEEDED FOR [place] 6.25-15 COUGH n mg/5 mL Cancer [facility] promethazin Yes TAKE 5 ML U nivers e-dextromet 5-30 BY MOUTH ity of horphan 00:00: EVERY 6 [place] (PROMETHAZI 00 HOURS MD WEINSTEIN) NEEDED FOR [place] 6.25-15 COUGH n mg/5 mL Cancer syrup Center promethazin Yes TAKE 5 ML U nivers e-dextromet 5-30 BY MOUTH ity of horphan 00:00: EVERY 6 [place] (PROMETHAZI 00 HOURS MD WEINSTEIN) NEEDED FOR [place] 6.25-15 COUGH n mg/5 mL Cancer syrup Center promethazin Yes TAKE 5 ML U nivers e-dextromet 5-30 BY MOUTH ity of horphan 00:00: EVERY 6 [place] (PROMETHAZI 00 HOURS MD WEINSTEIN) NEEDED FOR [place] 6.25-15 COUGH n mg/5 mL Cancer syrup Center promethazin Yes TAKE 5 ML U nivers e-dextromet 5-30 BY MOUTH ity of horphan 00:00: EVERY 6 [place] (PROMETHAZI 00 HOURS MD WEINSTEIN) NEEDED FOR [place] 6.25-15 COUGH n mg/5 mL Cancer syrup Center spironolact Yes TAKE 1 Univ ers one 5-27 TABLET BY ity of (ALDACTONE) 00:00: MOUTH [place] 25 mg 00 EVERY DAY MD tablet [facility] spironolact 0 Yes TAKE 1 Univ ers one 5-27 TABLET BY ity of (ALDACTONE) 00:00: MOUTH [place] 25 mg 00 EVERY DAY MD tablet [facility] spironolact 0 Yes TAKE 1 Univ ers one 5-27 TABLET BY ity of (ALDACTONE) 00:00: MOUTH [place] 25 mg 00 EVERY DAY MD tablet [facility] spironolact 0 Yes TAKE 1 Univ ers one 5-27 TABLET BY ity of (ALDACTONE) 00:00: MOUTH [place] 25 mg 00 EVERY DAY MD tablet [facility] spironolact 0 Yes TAKE 1 Univ ers one 5-27 TABLET BY ity of (ALDACTONE) 00:00: MOUTH [place] 25 mg 00 EVERY DAY MD tablet [facility] benzonatate Yes Univer s (TESSALON) 5-26 ity of 100 mg 00:00: [place] capsule 00 [facility] predniSONE Yes TWICE Univer s (DELTASONE) 5-26 DAILY ity of 10 mg 00:00: [place] tablet 00 MD Liane olivier [facility] benzonatate Yes THREE Unive rs (TESSALON) 5-26 TIMES A ity of 100 mg 00:00: DAY [place] capsule 00 [facility] predniSONE Yes TWICE Univer s (DELTASONE) 5-26 DAILY ity of 10 mg 00:00: [place] tablet 00 [facility] ol[facility] benzonatate Yes Univer s (TESSALON) 5-26 ity of 100 mg 00:00: [place] capsule 00 [facility] predniSONE Yes TWICE Univer s (DELTASONE) 5-26 DAILY ity of 10 mg 00:00: [place] tablet 00 [facility] benzonatate Yes Univer s (TESSALON) 5-26 ity of 100 mg 00:00: [place] capsule 00 [facility] predniSONE Yes TWICE Univer s (DELTASONE) 5-26 DAILY ity of 10 mg 00:00: [place] tablet 00 [facility] benzonatate Yes Univer s (TESSALON) 5-26 ity of 100 mg 00:00: [place] capsule 00 [facility] predniSONE Yes TWICE Univer s (DELTASONE) 5-26 DAILY ity of 10 mg 00:00: [place] tablet 00 MD Liane olivier [facility] oxyCODONE-a Yes Univer s cetaminophe 5-20 ity of n 00:00: [place] (PERCOCET) 00 2.5-325 mg [place] per tablet n Cancer Center oxyCODONE-a Yes Univer s cetaminophe 5-20 ity of n 00:00: [place] (PERCOCET) 00 2.5-325 mg [place] per tablet n [facility] oxyCODONE-a Yes Univer s cetaminophe 5-20 ity of n 00:00: [place] (PERCOCET) 00 2.5-325 mg [place] per tablet n [facility] oxyCODONE-a Yes Univer s cetaminophe 5-20 ity of n 00:00: [place] (PERCOCET) 00 MD 2.5-325 mg [place] per tablet [facility] oxyCODONE-a Yes Univer s cetaminophe 5-20 ity of n 00:00: [place] (PERCOCET) 00 MD 2.5-325 mg [place] per tablet [facility] cefPODoxime Yes 200mg Take 1 Uni vers (VANTIN) 5-14 tablet ity of 200 mg 00:00: (200 mg) [place] tablet 00 by mouth MD twice [place] daily. [facility] cefPODoxime Yes 200mg Take 1 Uni vers (VANTIN) 5-14 tablet ity of 200 mg 00:00: (200 mg) [place] tablet 00 by mouth MD twice [place] daily. [facility] cefPODoxime Yes 200mg Take 1 Uni vers (VANTIN) 5-14 tablet ity of 200 mg 00:00: (200 mg) [place] tablet 00 by mouth MD twice Anders[place] daily. [facility] cefPODoxime Yes 200mg Take 1 Uni vers (VANTIN) 5-14 tablet ity of 200 mg 00:00: (200 mg) [place] tablet 00 by mouth MD twice [place] daily. [facility] cefPODoxime Yes 200mg Take 1 Uni vers (VANTIN) 5-14 tablet ity of 200 mg 00:00: (200 mg) [place] tablet 00 by mouth twice [place] daily. [facility] cefPODoxime Yes 200mg Take 1 Uni vers (VANTIN) 5-14 tablet ity of 200 mg 00:00: (200 mg) [place] tablet 00 by mouth twice [place] daily. [facility] cefPODoxime Yes 200mg Take 1 Uni vers (VANTIN) 5-14 tablet ity of 200 mg 00:00: (200 mg) [place] tablet 00 by mouth twice [place] daily. [facility] metFORMIN Yes TAKE 1 Univer s (GLUCOPHAGE 5-10 TABLET BY ity of ) 1000 mg 00:00: MOUTH [place] tablet 00 THE MD MORNING [place] AND IN THE n EVENING Cancer WITH MEALS Center metFORMIN 0 2022- No TAKE 1 Unive rs (GLUCOPHAGE 5-10 06-24 TABLET BY it y of ) 1000 mg 00:00: 00:00 MOUTH IN [place] as tablet 00 :00 THE MD MORNING [place] AND IN THE n EVENING Cancer WITH MEALS Center metFORMIN 0 2022- No TAKE 1 Unive rs (GLUCOPHAGE 5-10 06-24 TABLET BY it y of ) 1000 mg 00:00: 00:00 MOUTH IN [place] tablet 00 :00 THE MD MORNING [place] AND IN THE n EVENING Cancer WITH MEALS Center metFORMIN 0 2022- No TAKE 1 Unive rs (GLUCOPHAGE 5-10 06-24 TABLET BY it y of ) 1000 mg 00:00: 00:00 MOUTH IN [place] tablet 00 :00 THE MD MORNING [place] AND IN THE n EVENING Cancer WITH MEALS Center metFORMIN 0 2022- No TAKE 1 Unive rs (GLUCOPHAGE 5-10 06-24 TABLET BY it y of ) 1000 mg 00:00: 00:00 MOUTH IN [place] tablet 00 :00 THE MD MORNING [place] AND IN THE [...] for Pain. Indication s: chronic pain oxyCODONE-a 2022-0 Yes Cancer 1{tbl} Take 1 [facility] cetaminophe [...] [place] tablet 53 by mouth MD daily. [facility] dicyclomine Yes 10mg Take 1 [...] tablet 53 mouth MD every [place] morning. [facility] allopurinol Yes prevention 300mg Take 1 Univers (ZYLOPRIM) 5-03 of acute tablet ity of 300 mg 11:42: gout attack (300 mg) [place] tablet 53 by mouth MD twice Anders[place] daily. [facility] colchicine Yes prevention .6mg Take 1 Univers (COLCRYS) 5-03 of acute tablet ity of 0.6 mg 11:42: gout attack (0.6 mg) [place] tablet 53 by mouth MD daily. [facility] dicyclomine Yes 10mg [...] tablet 53 mouth MD every [place] morning. [facility] allopurinol Yes prevention 300mg Take 1 [facility] (ZYLOPRIM) 5-03 of acute tablet ity of 300 mg 11:42: gout attack (300 mg) [place] tablet 53 by mouth MD twice Anders[place] daily. n [facility] colchicine Yes prevention .6mg Take 1 [facility] (COLCRYS) -03 of acute tablet ity of 0.6 mg 11:42: gout attack (0.6 mg) [place] tablet 53 by mouth [facility]. [facility] Yes 10mg Take 1 Univ ers (BENTYL) 10 - capsule ity o f mg capsule 11:42: (10 mg) by Christelle Ledbetter mouth 3 MD (three) [place] times a n day. [facility] gabapentin Yes Chronic TAKE 1 Un ally (NEURONTIN) - pain TABLET(800 it y of 800 mg 00:00: MG) BY [place] tablet 00 MOUTH MD EVERY 8 Anderso HOURS [facility] gabapentin Yes Chronic TAKE 1 Un ally (NEURONTIN) -02 pain TABLET(800 it y of 800 mg 00:00: MG) BY [place] tablet 00 MOUTH MD EVERY 8 Anders[place] HOURS [facility] gabapentin Yes Chronic TAKE 1 Un ally (NEURONTIN) 5-02 pain TABLET(800 it y of 800 mg 00:00: MG) BY [place] tablet 00 MOUTH MD EVERY 8 Anders[place] HOURS [facility] gabapentin 0 2022- No Chronic TAKE 1 U nivers (NEURONTIN) 03-02 pain TABLET(800 i ty of 800 mg 00:00: 00:00 MG) BY [place] tablet 00 :00 MOUTH MD EVERY 8 [place] HOURS [facility] gabapentin 0 2022- No Chronic TAKE 1 U nivers (NEURONTIN) 03-02- pain TABLET(800 i ty of 800 mg 00:00: 00:00 MG) BY [place] tablet 00 :00 MOUTH MD EVERY 8 [place] HOURS [facility] gabapentin 0 2022- No Chronic TAKE 1 U nivers (NEURONTIN) 03-02-09 pain TABLET(800 i ty of 800 mg 00:00: 00:00 MG) BY [place] tablet 00 :00 MOUTH EVERY 8 [place] HOURS n Cancer Center gabapentin 2022- No Chronic TAKE 1 U nivers (NEURONTIN) 03-0209 pain TABLET(800 i ty of 800 mg 00:00: 00:00 MG) BY [place] tablet 00 :00 MOUTH MD EVERY 8 [place] HOURS n [facility] Center gabapentin 2022-2022- No Chronic TAKE 1 U nivers (NEURONTIN) 03-02 pain TABLET(800 i ty of 800 mg 00:00: 00:00 MG) BY [place] tablet 00 :00 MOUTH MD EVERY 8 [place] HOURS n [facility] Center pseudoephed Yes Chronic 30mg Take 1 U nivers rine 4-28 pain tablet (30 ity of (Sudafed) 00:00: mg) by [place] 30 mg 00 mouth MD tablet every 8 [place] (eight) n hours as Cancer needed for Center congestion . pseudoephed Yes Chronic 30mg Take 1 U nivers rine 4-28 pain tablet (30 ity of (Sudafed) 00:00: mg) by [place] 30 mg 00 mouth MD tablet every 8 [place] (eight) n hours as Cancer needed for Center congestion . pseudoephed Yes Chronic 30mg Take 1 U nivers rine 4-28 pain tablet (30 ity of (Sudafed) 00:00: mg) by [place] 30 mg 00 mouth MD tablet every 8 [place] (eight) n hours as Cancer needed for Center congestion . pseudoephed Yes Chronic 30mg Take 1 U nivers rine 4-28 pain tablet (30 ity of (Sudafed) 00:00: mg) by [place] 30 mg 00 mouth MD tablet every 8 [place] (eight) n hours as Cancer needed for Center congestion . pseudoephed Yes Chronic 30mg Take 1 U nivers rine 4-28 pain tablet (30 ity of (Sudafed) 00:00: mg) by [place] 30 mg 00 mouth MD tablet every 8 [place] (eight) n hours as Cancer needed for Center congestion . pseudoephed Yes Chronic 30mg Take 1 U nivers rine 4-28 pain tablet (30 ity of (Sudafed) 00:00: mg) by [place] 30 mg 00 mouth MD tablet every [...] hr tablet DAILY [facility] METOPROLOL 0 Yes TAKE 1 Unive rs TARTRATE 4-26 TABLET BY ity of 100 mg 00:00: MOUTH [place] tablet 00 TWICE Medical DAILY Branch METOPROLOL 0 Yes TAKE 1 Unive rs TARTRATE 4-26 TABLET BY ity of 100 mg 00:00: MOUTH [place] tablet 00 TWICE Medical DAILY Branch METOPROLOL 2022-0 Yes TAKE 1 Unive rs TARTRATE 4-26 TABLET BY ity of 100 mg 00:00: MOUTH [place] tablet 00 TWICE Medical DAILY Branch METOPROLOL 2022-0 Yes TAKE 1 Unive rs TARTRATE 4-26 TABLET BY ity of 100 mg 00:00: MOUTH [place] tablet 00 TWICE Medical DAILY Branch METOPROLOL 2022-0 Yes TAKE 1 Unive rs TARTRATE 4-26 TABLET BY ity of 100 mg 00:00: MOUTH [place] tablet 00 TWICE Medical DAILY Branch METOPROLOL 2022-0 Yes TAKE 1 Unive rs TARTRATE 4-26 TABLET BY ity of 100 mg 00:00: MOUTH [place] tablet 00 TWICE Medical DAILY Branch METOPROLOL 2022-0 Yes TAKE 1 Unive rs TARTRATE 4-26 TABLET BY ity of 100 mg 00:00: MOUTH [place] tablet 00 TWICE Medical DAILY Branch METOPROLOL 2022-0 Yes TAKE 1 Unive rs TARTRATE 4-26 TABLET BY ity of 100 mg 00:00: MOUTH [place] tablet 00 TWICE Medical DAILY Branch METOPROLOL 2022-0 Yes TAKE 1 Unive rs TARTRATE 4-26 [...] 00 TWICE Medical DAILY Branch metoprolol Yes TAKE 1 Unive rs succinate 4-26 TABLET BY ity o f (TOPROL XL) 00:00: MOUTH [place] 100 mg 24 00 TWICE MD hr tablet DAILY [facility] metoprolol Yes TAKE 1 Unive rs succinate 4-26 TABLET BY ity o f (TOPROL XL) 00:00: MOUTH [place] 100 mg 24 00 TWICE MD hr tablet DAILY [facility] metoprolol Yes TAKE 1 Unive rs succinate 4-26 TABLET BY ity o f (TOPROL XL) 00:00: MOUTH [place] 100 mg 24 00 TWICE MD hr tablet DAILY [facility] metoprolol Yes TAKE 1 Unive rs succinate 4-26 TABLET BY ity o f (TOPROL XL) 00:00: MOUTH [place] 100 mg 24 00 TWICE MD hr tablet DAILY [facility] hydrALAZINE 2022- No hypertensio 100mg Take 1 [facility] (APRESOLINE 4-18 04-18 n tablet ity o f ) 100 mg 16:41: 00:00 (100 mg) [place] tablet 23 :00 by mouth 3 MD (three) [place] times a n day. [facility] hydroCHLORO 2022- No 12.5mg Take 1 U nivers thiazide 4-18 04-18 capsule ity of (MICROZIDE) 16:41: 00:00 (12.5 mg) [place] 12.5 mg 23 :00 by mouth MD capsule every [place] morning. n [facility] cloNIDine 2022- No .2mg Take 1 Unive rs HCl 4-18 04-18 tablet ity of (CATAPRES) 16:41: 00:00 (0.2 mg) [place] 0.2 mg 23 :00 by mouth 3 MD tablet (three) [place] times a n day as Cancer needed. [place] hydrALAZINE 2022- No hypertensio 100mg Take 1 [facility] (APRESOLINE 4-18 04-18 n tablet ity o f ) 100 mg 16:41: 00:00 (100 mg) [place] tablet 23 :00 by mouth 3 MD (three) [place] times a n day. [facility] hydroCHLORO 2022- No 12.5mg Take 1 U nivers thiazide 4-18 04-18 capsule ity of (MICROZIDE) 16:41: 00:00 (12.5 mg) [place] 12.5 mg 23 :00 by mouth MD capsule every [place] morning. n [facility] cloNIDine 2022- No .2mg Take 1 Unive rs HCl 4-18 04-18 tablet ity of (CATAPRES) 16:41: 00:00 (0.2 mg) [place] 0.2 mg 23 :00 by mouth 3 MD tablet (three) [place] times a n day as Cancer needed. [place] hydrALAZINE No hypertensio 100mg Take 1 [facility] (APRESOLINE 4-18 04-18 n tablet ity o f ) 100 mg 16:41: 00:00 (100 mg) [place] tablet 23 :00 by mouth 3 MD (three) [place] times a n day. [facility] hydroCHLORO 2022- No 12.5mg Take 1 U nivers thiazide 4-18 04-18 capsule ity of (MICROZIDE) 16:41: 00:00 (12.5 mg) [place] 12.5 mg 23 :00 by mouth MD capsule every [place] morning. n [facility] cloNIDine 2022- No .2mg Take 1 Unive rs HCl 4-18 04-18 tablet ity of (CATAPRES) 16:41: 00:00 (0.2 mg) [place] 0.2 mg 23 :00 by mouth 3 MD tablet (three) [place] times a n day as Cancer needed. [place] hydrALAZINE 2022- No hypertensio 100mg Take 1 [...] (three) [place] times a n day. Cancer [place] hydroCHLORO 2022- No 12.5mg Take 1 U [...] times a n day as Cancer needed. [place] hydrALAZINE 2022- No hypertensio 100mg Take 1 [facility] (APRESOLINE 4-18 04-18 n tablet ity o f ) 100 mg 16:41: 00:00 (100 mg) [place] tablet 23 :00 by mouth 3 MD (three) [place] times a n day. Cancer [place] hydroCHLORO 2022- No 12.5mg Take 1 U [...] times a n day as Cancer needed. [place] hydrALAZINE 2022- No hypertensio 100mg Take 1 [...] MD capsule every [place] morning. n Cancer [place] cloNIDine 2022- No .2mg Take 1 Unive rs HCl 4-18 04-18 tablet ity of (CATAPRES) 16:41: 00:00 (0.2 mg) [place] 0.2 mg 23 :00 by mouth 3 MD tablet (three) [place] times a n day as Cancer needed. [place] insulin Yes Type 2 Inject Univer s [...] Deep venous 750mg Take 1 Univers n 4-22 thrombosis tablet ity of (LEVAQUIN) 00:00: 04:59 <Unspecifie (750 mg) [place] 750 mg 00 :00 d side> by mouth MD tablet daily for Anderso 3 days. [facility] levoFLOXaci 2022- No Deep venous 750mg Take 1 Univers n 4-22 thrombosis tablet ity of (LEVAQUIN) 00:00: 04:59 <Unspecifie (750 mg) [place] 750 mg 00 :00 d side> by mouth MD tablet daily for Anderso 3 days. [facility] 2022- No Deep venous 750mg Take 1 Univers n 02-16 thrombosis tablet ity of (LEVAQUIN) 00:00: 04:59 <Unspecifie (750 mg) [place] 750 mg 00 :00 d side> by mouth MD tablet daily for Anders[place] 3 days. [facility] 2022- No Deep venous 750mg Take 1 Univers n 02-16 thrombosis tablet ity of (LEVAQUIN) 00:00: 04:59 <Unspecifie (750 mg) [place] 750 mg 00 :00 d side> by mouth MD tablet daily for Anderso 3 days. [facility] 2022- No Deep venous 750mg Take 1 Univers n 02-16 thrombosis tablet ity of (LEVAQUIN) 00:00: 04:59 <Unspecifie (750 mg) [place] 750 mg 00 :00 d side> by mouth MD tablet daily for Anderso 3 days. [facility] 2022- No Deep venous 750mg Take 1 Univers n 02-16 thrombosis tablet ity of (LEVAQUIN) 00:00: 04:59 <Unspecifie (750 mg) [place] 750 mg 00 :00 d side> by mouth MD tablet daily for Anderso 3 days. [facility] 2022- No Deep venous 750mg Take 1 Univers n 02-16 thrombosis tablet ity of (LEVAQUIN) 00:00: 04:59 <Unspecifie (750 mg) [place] 750 mg 00 :00 d side> by mouth MD tablet daily for Anderso 3 days. [facility] 2022- No Deep venous 750mg Take 1 Univers n 02-16 thrombosis tablet ity of (LEVAQUIN) 00:00: 04:59 <Unspecifie (750 mg) [place] 750 mg 00 :00 d side> by mouth MD tablet daily for Anderso 3 days. [facility] enoxaparin Yes Deep venous 120mg Inject 0.8 Univers (LOVENOX) 4-14 thrombosis mL (120 i ty of 120 mg/0.8 00:00: <Unspecifie mg) under [place] mL 00 d side> the skin MD prefilled every 12 Lauri o syringe (twelve) n hours. [facility] enoxaparin Yes Deep venous 120mg Inject [...] 12 Lauri o syringe (twelve) n hours. [facility] enoxaparin 2022- No Deep venous 120mg Inject 0.8 Univers (LOVENOX) -14 05-31 thrombosis mL (120 ity of 120 mg/0.8 00:00: 00:00 <Unspecifie mg) under [place] mL 00 :00 d side> the skin MD prefilled every 12 Lauri o syringe (twelve) n hours. [facility] enoxaparin 2022- No Deep venous 120mg Inject 0.8 Univers (LOVENOX) 02-12 05-31 thrombosis mL (120 ity of 120 [...] syringe (twelve) n hours. [facility] enoxaparin Deep venous 120mg Inject 0.8 Univers (LOVENOX) 02-12 05-31 thrombosis mL (120 ity of 120 [...] n (painful Cancer swallowing Center ). fluticasone 0 Yes Adenoid 100ug Inhale 2 Univers propionate [...] n (painful Cancer swallowing Center ). fluticasone 0 Yes Adenoid 100ug Inhale 2 Univers propionate [...] nasal spray , NOS twice n daily. [facility] lidocaine Yes Adenocarcin 5mL Swish and [...] nasal spray , NOS twice n daily. [facility] lidocaine Yes Adenocarcin 5mL Swish and Univers (XYLOCAINE) 4-06 yanely of swallow 5 i ty of 20 mg/mL 00:00: nasopharynx mL every 6 [place] (2%) 00 (six) MD viscous hours as Anderso solution needed n ([facility] Cancer swallowing Center ). fluticasone Yes Adenoid 100ug Inhale 2 Univers propionate 4-06 cystic sprays ity o f (FLONASE) 00:00: carcinoma (100 mcg) [place] 50 00 of into each MD mcg/spray nasopharynx nostril Anderso nasal spray , NOS twice n daily. [facility] ondansetron 2023-0 2024- No Adenoid 8mg Take 1 Univers (ZOFRAN) 8 02-04-06 cystic tablet (8 i ty of mg tablet 00:00: 04:59 carcinoma mg) by [place] 00 :00 of mouth MD nasopharynx every 8 Suraj so , NOS (eight) n hours as Cancer needed for Center nausea or vomiting. ondansetron 3-0 2024- No Adenoid 8mg Take 1 Univers (ZOFRAN) 8 02-04- cystic tablet (8 i ty of mg tablet 00:00: 04:59 carcinoma mg) by [place] 00 :00 of mouth MD nasopharynx every 8 Suraj so , NOS (eight) n hours as Cancer needed for Center nausea or vomiting. ondansetron 2023-0 2024- No Adenoid 8mg Take 1 Univers (ZOFRAN) 8 02-04 cystic tablet (8 i ty of mg tablet 00:00: 04:59 carcinoma mg) by [place] 00 :00 of mouth MD nasopharynx every 8 Suraj so , NOS (eight) n hours as Cancer needed for Center nausea or vomiting. ondansetron 3-0 2023- No Adenoid 8mg Take 1 Univers (ZOFRAN) 8 02-04- cystic tablet (8 i ty of mg tablet 00:00: 04:59 carcinoma mg) by [place] 00 :00 of mouth MD nasopharynx every 8 Suraj so , NOS (eight) n hours as Cancer needed for Center nausea or vomiting. ondansetron 3-0 2024- No Adenoid 8mg Take 1 Univers (ZOFRAN) 8 02-04- cystic tablet (8 i ty of mg tablet 00:00: 04:59 carcinoma mg) by [place] 00 :00 of mouth MD nasopharynx every 8 Suraj so , NOS (eight) n hours as Cancer needed for Center nausea or vomiting. ondansetron 2023-0 2024- No Adenoid 8mg Take 1 Univers (ZOFRAN) 8 02-04-06 cystic tablet (8 i ty of mg tablet 00:00: 04:59 carcinoma mg) by [place] 00 :00 of mouth nasopharynx every 8 Suraj so , NOS (eight) n hours as Cancer needed for Center nausea or vomiting. ondansetron 2023-0 2024- No Adenoid 8mg Take 1 Univers (ZOFRAN) 8 02-04 cystic tablet (8 i ty of mg tablet 00:00: 04:59 carcinoma mg) by [place] 00 :00 of mouth MD nasopharynx every 8 Suraj so , NOS (eight) n hours as Cancer needed for Center nausea or vomiting. ondansetron 2023- No Adenoid 8mg Take 1 Univers (ZOFRAN) 8 02-04- cystic tablet (8 i ty of mg [...] DAILY MD x 5/16 syrg hyperglycem A [facility] insulin 2022- No Type 2 USE Unive rs syringe-nee 02-02 diabetes DIRECTED ity of dle U-100 1 00:00: 00:00 mellitus FOUR TIMES [place] mL 31 gauge 00 :00 with DAILY MD x 5/16 [facility] insulin 2022- No Type 2 USE Unive rs syringe-nee 02-02 diabetes DIRECTED ity of dle U-100 1 00:00: 00:00 mellitus FOUR TIMES [place] mL 31 gauge 00 :00 with DAILY MD x 5/16 syrg [facility]cem [facility] insulin 2022- No Type 2 USE Unive rs syringe-nee 02-02 diabetes DIRECTED ity of dle U-100 1 00:00: 00:00 mellitus FOUR TIMES [place] mL 31 gauge 00 :00 with DAILY MD x 5/16 syrg hyperglycem A nderso ia [facility] insulin 2022- No Type 2 [...] 8 Anderso (eight) n hours. [facility] Center gabapentin 2022- No Chronic 800mg Take 1 Univers (NEURONTIN) -03 05-02 pain tablet ity o f 800 mg 00:00: 00:00 (800 mg) [place] tablet 00 :00 by mouth MD every 8 Anderso (eight) n hours. [facility] gabapentin 2022- No Chronic 800mg Take 1 Univers (NEURONTIN) 02-01- pain tablet ity o f 800 mg 00:00: 00:00 (800 mg) [place] tablet 00 :00 by mouth MD every 8 Anderso (eight) n hours. [facility] gabapentin 2022- No Chronic 800mg Take 1 Univers (NEURONTIN) 02-01 pain tablet ity o f 800 mg 00:00: 00:00 (800 mg) [place] tablet 00 :00 by mouth MD every 8 Anderso (eight) n hours. [facility] gabapentin 2022- No Chronic 800mg Take 1 Univers (NEURONTIN) 02-01 pain tablet ity o f 800 mg 00:00: 00:00 (800 mg) [place] tablet 00 :00 by mouth MD every 8 Anderso (eight) n hours. [facility] gabapentin 2022- No Chronic 800mg Take 1 Univers (NEURONTIN) 02-01 pain tablet ity o f 800 mg 00:00: 00:00 (800 mg) [place] tablet 00 :00 by mouth MD every 8 Anderso (eight) n hours. [facility] gabapentin 2022- No Chronic 800mg Take 1 Univers (NEURONTIN) 02-01 pain tablet ity o f 800 mg 00:00: 00:00 (800 mg) [place] tablet 00 :00 by mouth MD every 8 Anderso (eight) n hours. [facility] gabapentin 2022- No Chronic 800mg Take 1 Univers (NEURONTIN) 02-01 pain tablet ity o f 800 mg 00:00: 00:00 (800 mg) [place] tablet 00 :00 by mouth MD every 8 Anderso (eight) n hours. [facility] pen needle, Yes Type 2 Use to Un ally diabetic 4-02 diabetes inject ity o f (Easy 00:00: mellitus insulin 4 Frankie as Comfort Pen 00 with times a [place]) 31 hyperglycem day A nderso gauge x ia n 03/16" ndle [facility] pen needle, Yes Type 2 Use to Un ally diabetic 4-02 diabetes inject ity o f (Easy 00:00: mellitus insulin 4 [place]ie as Comfort Pen 00 with times a MD [place]) 31 hyperglycem day A nderso gauge x ia n 03/16" [facility] pen needle, Yes Type 2 Use to Un ally diabetic 4-02 diabetes inject ity o f (Easy 00:00: mellitus insulin 4 [place] as Comfort Pen 00 with times a MD [place]) 31 hyperglycem day A nderso gauge x ia n 03/16" [facility] pen needle, Yes Type 2 Use to Un ally diabetic 4-02 diabetes inject ity o f (Easy 00:00: mellitus insulin 4 [place]ie as Comfort Pen 00 with times a MD [place]) 31 hyperglycem day A nderso gauge x ia n 03/16"[facility] pen needle, Yes Type 2 Use to Un ally diabetic 4-02 diabetes inject ity o f (Easy 00:00: mellitus insulin 4 [place]ie as Comfort Pen 00 with times a MD [place]) 31 hyperglycem day A nderso gauge x ia n 03/16" [facility] pen needle, Yes Type 2 Use to Un ally diabetic 4-02 diabetes inject ity o f (Easy 00:00: mellitus insulin 4 [place]ie as Comfort Pen 00 with times a MD [place]) 31 hyperglycem day A nderso gauge x ia n 03/16" [facility] pen needle, Yes Type 2 Use to Un ally diabetic 4-02 diabetes inject ity o f (Easy 00:00: mellitus insulin 4 [place]ie as Comfort Pen 00 with times a MD [place]) 31 hyperglycem day A nderso gauge x ia n 03/16" [facility] pen needle, Yes Type 2 Use to Un ally diabetic 4-02 diabetes inject ity o f (Easy 00:00: mellitus insulin 4 [place]ie as Comfort Pen 00 with times a MD [place]) 31 hyperglycem day A nderso gauge x ia n 03/16" [facility] insulin 2022- No Type 2 Inject 5 [...] the M D U-500, complicatio skin 3 Abndar rso Conc, n (three) n Kwikpen) times a Cancer 500 unit/mL day, Center (3 mL) before insulin pen meals. Inject as instructed at discharge. pen needle, 2022- No Use as Uni vers diabetic 01-31 directed. ity o f needle 00:00: 00:00 [place] 00 :00 MD Liane olivier [facility] insulin 2022- No Type 2 Inject [...] 00:00 [place] 00 :00 MD Liane olivier [facility] insulin 2022- No Type 2 Inject [...] 00:00: 00:00 [place] 00 :00 MD Liane oliiver [facility] insulin 2022- No Type 2 Inject [...] 00:00 [place] 00 :00 MD Liane olivier [facility] insulin 2022- No Type 2 Inject [...] 00:00 [place] 00 :00 MD Liane olivier [facility] insulin 2022- No Type 2 Inject [...] 00:00 [place] 00 :00 MD Liane olivier [facility] insulin 2022- No Type 2 Inject [...] MD Liane olivier [facility] naloxone Yes FPC 1 dose Un ally (Narcan) 4 3-22 current use into one ity of mg/actuatio 00:00: of opiate nostril as [place] n nasal 00 analgesic needed for M D spray opioid Anderso overdose. 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 n another Cancer dose into Center the other nostril after 2 minutes if the patient does not respond naloxone 2023-0 Yes buttermaker continuous churn 1 dose Un ally (Narcan) 4 3-22 current use into one ity of mg/actuatio 00:00: of opiate nostril as [place] n nasal 00 analgesic needed for M D spray opioid Anderso overdose. n another Cancer dose into Center the other nostril after 2 minutes if the patient does not respond naloxone 2023-0 Yes FPC 1 dose Un ally (Narcan) 4 3- current use into one ity of mg/actuatio 00:00: of opiate nostril as [place] n nasal 00 analgesic needed for M D spray opioid Anderso overdose. n another Cancer dose into Center the other nostril after 2 minutes if the patient does not respond naloxone 2023-0 Yes buttermaker continuous churn 1 dose Un ally (Narcan) 4 3- current use into one ity of mg/actuatio 00:00: of opiate nostril as [place] n nasal 00 analgesic needed for M D spray opioid Anderso overdose. n another Cancer dose into Center the other nostril after 2 minutes if the patient does not respond naloxone 2023-0 Yes buttermaker continuous churn 1 dose Un ally (Narcan) 4 3- current use into one ity of mg/actuatio 00:00: of opiate nostril as [place] n nasal 00 analgesic needed for M D spray opioid Anderso overdose. n another Cancer dose into Center the other nostril after 2 minutes if the patient does not respond naloxone 2023-0 Yes buttermaker continuous churn 1 dose Un ally (Narcan) 4 3-22 current use into one ity of mg/actuatio 00:00: of opiate nostril as [place] n nasal 00 analgesic needed for M D spray opioid Anderso overdose. n another Cancer dose into Center the other nostril after 2 minutes if the patient does not respond naloxone 2023-0 Yes FPC 1 dose Un ally (Narcan) 4 3-22 current use into one ity of mg/actuatio 00:00: of opiate nostril as [place] n nasal 00 analgesic needed for M D spray opioid Anderso overdose. n another Cancer dose into Center the other nostril after 2 minutes if the patient does not respond xyloxylin 2022-0 2022- No Ulcerative 10mL Swish and Univers oral 3-22 04-18 oral swallow 10 ity of suspension 00:00: 00:00 mucositis mL 2 (two) [place] (AMB-CMPD) 00 :00 due to times a MD antineoplas day as Lauri o tic therapy needed for n mouth Cancer pain. Center xyloxylin 0 2022- No Ulcerative 10mL Swish and Univers oral 3-22 04-18 oral swallow 10 ity of suspension 00:00: 00:00 mucositis mL 2 (two) [place] (AMB-CMPD) 00 :00 due to times a MD antineoplas day as Lauri o tic therapy needed for n mouth Cancer pain. Center xyloxylin 2022- No Ulcerative 10mL Swish and Univers oral 3-22 04-18 oral swallow 10 ity of suspension 00:00: 00:00 mucositis mL 2 (two) [place] (AMB-CMPD) 00 :00 due to times a MD antineoplas day as Lauri o tic therapy needed for n mouth Cancer pain. Center xyloxylin 2022- No Ulcerative 10mL Swish and Univers oral 3-22 04-18 oral swallow 10 ity of suspension 00:00: 00:00 mucositis mL 2 (two) [place] (AMB-CMPD) 00 :00 due to times a MD antineoplas day as Lauri o tic therapy needed for n mouth Cancer pain. Center xyloxylin 2022- No Ulcerative 10mL Swish and Univers oral 3-22 04-18 oral swallow 10 ity of suspension 00:00: 00:00 mucositis mL 2 (two) [place] (AMB-CMPD) 00 :00 due to times a MD antineoplas day as Lauri o tic therapy needed for n mouth Cancer pain. Center xyloxylin 0 2022- No Ulcerative 10mL Swish and Univers oral 3-22 04-18 oral swallow 10 ity of suspension 00:00: 00:00 mucositis mL 2 (two) [place] (AMB-CMPD) 00 :00 due to times a MD antineoplas day as Lauri o tic therapy needed for n mouth Cancer pain. Center xyloxylin 0 2022- No Ulcerative 10mL Swish and Univers oral 3-22 04-18 oral swallow 10 ity of suspension 00:00: 00:00 mucositis mL 2 (two) [place] (AMB-CMPD) 00 :00 due to times a MD antineoplas day as Lauri o tic therapy needed for n mouth Cancer pain. [place] xyloxylin 2022- No Ulcerative 10mL Swish and Univers oral 01-20-18 oral swallow 10 ity of suspension 00:00: 00:00 mucositis mL 2 (two) [place] (AMB-CMPD) 00 :00 due to times a MD antineoplas day as Lauri o tic therapy needed for n mouth Cancer pain. [place] hydrALAZINE 2022- No 100mg Take 1 Un [...] times a n day with Cancer meals. [place] spironolact 2022- No 25mg Take 1 Uni vers one 3-20 03-20 tablet (25 ity of (ALDACTONE) 19:34: 00:00 mg) by [place] as 25 mg 54 :00 mouth MD tablet daily. Anderso n Cancer [place] hydrALAZINE 2022- No 100mg Take 1 Un [...] times a n day with Cancer meals. [place] spironolact 2022- No 25mg Take 1 Uni vers one 3-20 03-20 tablet (25 ity of (ALDACTONE) 19:34: 00:00 mg) by [place] as 25 mg 54 :00 mouth MD tablet daily. [facility] hydrALAZINE 2022-2022- No 100mg Take 1 Un ally (APRESOLINE 3-20 03-20 tablet ity o f ) 100 mg 19:34: 00:00 (100 mg) [place] tablet 54 :00 by mouth 3 MD (three) Anderso times a n day. [facility] metFORMIN 2022-2022- No 1000mg Take 1 Uni vers (GLUCOPHAGE 3-20 03-20 tablet ity o f ) 1000 mg 19:34: 00:00 (1,000 mg) [place] tablet 54 :00 by mouth 2 MD (two) Anderso times a n day with Cancer meals. [place] spironolact 2022- No 25mg Take 1 Uni vers one 3-20 03-20 tablet (25 ity of (ALDACTONE) 19:34: 00:00 mg) by [place] as 25 mg 54 :00 mouth MD tablet daily. [facility] hydrALAZINE 2022- No 100mg Take 1 Un ally (APRESOLINE 3-20 03-20 tablet ity o f ) 100 mg 19:34: 00:00 (100 mg) [place] tablet 54 :00 by mouth 3 MD (three) Anderso times a n day. [facility] metFORMIN 2022-0 2022- No 1000mg Take 1 Uni vers (GLUCOPHAGE 3-20 03-20 tablet ity o f ) 1000 mg 19:34: 00:00 (1,000 mg) [place] tablet 54 :00 by mouth 2 MD (two) Anderso times a n day with Cancer meals. [place] spironolact 2022- No 25mg Take 1 Uni vers one 3-20 03-20 tablet (25 ity of (ALDACTONE) 19:34: 00:00 mg) by [place] as 25 mg 54 :00 mouth MD tablet daily. [facility] hydrALAZINE 2022-2022- No 100mg Take 1 Un ally (APRESOLINE 3-20 03-20 tablet ity o f ) 100 mg 19:34: 00:00 (100 mg) [place] tablet 54 :00 by mouth 3 MD (three) Anderso times a n day. [facility] metFORMIN 2022-0 2022- No 1000mg Take 1 Uni vers (GLUCOPHAGE 3-20 03-20 tablet ity o f ) 1000 mg 19:34: 00:00 (1,000 mg) [place] tablet 54 :00 by mouth 2 MD (two) Anderso times a n day with Cancer meals. [place] spironolact 2022- No 25mg Take 1 Uni vers one 3-20 03-20 tablet (25 ity of (ALDACTONE) 19:34: 00:00 mg) by [place] as 25 mg 54 :00 mouth MD tablet daily. [facility] hydrALAZINE 2022-2022- No 100mg Take 1 Un ally (APRESOLINE 3-20 03-20 tablet ity o f ) 100 mg 19:34: 00:00 (100 mg) [place] tablet 54 :00 by mouth 3 MD (three) Anderso times a n day. [facility] metFORMIN 2022- No 1000mg Take 1 Uni vers (GLUCOPHAGE 3-20 03-20 tablet ity o f ) 1000 mg 19:34: 00:00 (1,000 mg) [place] tablet 54 :00 by mouth 2 MD (two) Anderso times a n day with Cancer meals. [place] spironolact 2022- No 25mg Take 1 Uni vers one 3-20 03-20 tablet (25 ity of (ALDACTONE) 19:34: 00:00 mg) by [place] as 25 mg 54 :00 mouth MD tablet daily. [facility] hydrALAZINE 2022- No 100mg Take 1 Un ally (APRESOLINE 3-20 03-20 tablet ity o f ) 100 mg 19:34: 00:00 (100 mg) [place] tablet 54 :00 by mouth 3 MD (three) Anderso times a n day. [facility] metFORMIN 2022-0 2022- No 1000mg Take 1 Uni vers (GLUCOPHAGE 3-20 03-20 tablet ity o f ) 1000 mg 19:34: 00:00 (1,000 mg) [place] tablet 54 :00 by mouth 2 MD (two) Anderso times a n day with Cancer meals. [place] spironolact 2022- No 25mg Take 1 Uni vers one 3-20 03-20 tablet (25 ity of (ALDACTONE) 19:34: 00:00 mg) by [place] as 25 mg 54 :00 mouth MD tablet daily. [facility] hydrALAZINE 2022- No 100mg Take 1 Un ally (APRESOLINE 3-20 03-20 tablet ity o f ) 100 mg 19:34: 00:00 (100 mg) [place] tablet 54 :00 by mouth 3 MD (three) Anderso times a n day. [facility] metFORMIN 2022- No 1000mg Take 1 Uni vers (GLUCOPHAGE 3-20 03-20 tablet ity o f ) 1000 mg 19:34: 00:00 (1,000 mg) [place] tablet 54 :00 by mouth 2 MD (two) Anderso times a n day with Cancer meals. [place] spironolact 2022- No 25mg Take 1 Uni vers one 3-20 03-20 tablet (25 ity of (ALDACTONE) 19:34: 00:00 mg) by [place] as 25 mg 54 :00 mouth MD tablet daily. [facility] metoprolol 2022- No Hypertensio 50mg Take 1 Univers tartrate 3-20 04-20 n tablet (50 ity of (LOPRESSOR) 00:00: 04:59 mg) by [place] 50 mg 00 :00 mouth MD tablet twice Anderso daily for n 30 days. [facility] metoprolol No Hypertensio 50mg Take 1 Univers tartrate 3-20 04-20 n tablet (50 ity of (LOPRESSOR) 00:00: 04:59 mg) by [place] 50 mg 00 :00 mouth MD tablet twice Anderso daily for n 30 days. [facility] metoprolol No Hypertensio 50mg Take 1 Univers tartrate 3-20 04-20 n tablet (50 ity of (LOPRESSOR) 00:00: 04:59 mg) by [place] 50 mg 00 :00 mouth MD tablet twice Anderso daily for n 30 days. [facility] metoprolol 2022- No Hypertensio 50mg Take 1 Univers tartrate 3-20 04-20 n tablet (50 ity of (LOPRESSOR) 00:00: 04:59 mg) by [place] 50 mg 00 :00 mouth MD tablet twice Anderso daily for n 30 days. [facility] metoprolol 2022- No Hypertensio 50mg Take 1 Univers tartrate 3-20 04-20 n tablet (50 ity of (LOPRESSOR) 00:00: 04:59 mg) by [place] 50 mg 00 :00 mouth MD tablet twice Anderso daily for n 30 days. [facility] metoprolol 2022- No Hypertensio 50mg Take 1 Univers tartrate 3-20 04-20 n tablet (50 ity of (LOPRESSOR) 00:00: 04:59 mg) by [place] 50 mg 00 :00 mouth MD tablet twice Anderso daily for n 30 days. [facility] metoprolol 2022- No Hypertensio 50mg Take 1 Univers tartrate 3-20 04-20 n tablet (50 ity of (LOPRESSOR) 00:00: 04:59 mg) by [place] 50 mg 00 :00 mouth MD tablet twice Anderso daily for n 30 days. [facility] metoprolol 2022- No Hypertensio 50mg Take 1 Univers tartrate 3-20 04-20 n tablet (50 ity of (LOPRESSOR) 00:00: 04:59 mg) by [place] 50 mg 00 :00 mouth MD tablet twice Anderso daily for n 30 days. [facility] sucralfate 2022- No Ulcerative 1000mg Take 10 mL Univers (CARAFATE) 01-18 oral (1,000 mg) it y of 100 mg/mL 00:00: 00:00 mucositis by mouth 4 [place] suspension 00 :00 due to (four) antineoplas times a Suraj so tic therapy day. n Cancer [place] UNABLE TO 2022- No Compound Uni vers FIND 01-18 Drug ity of 00:00: 00:00 [place] 00 :00 Andevelin n [facility] sucralfate 2022- No Ulcerative 1000mg Take 10 mL Univers (CARAFATE) 3-20 04-18 oral (1,000 mg) it y of 100 mg/mL 00:00: 00:00 mucositis by mouth 4 [place] suspension 00 :00 due to (four) MD kusum benjamin Suraj so tic therapy day. [facility] UNABLE TO Compound Uni vers FIND 01-18 Drug ity of 00:00: 00:00 [place] 00 :00 MD Rob [facility] sucralfate 2022- No Ulcerative 1000mg Take 10 mL Univers (CARAFATE) 01-18 oral (1,000 mg) it y of 100 mg/mL 00:00: 00:00 mucositis by mouth 4 [place] suspension 00 :00 due to (four) MD kusum benjamin Suraj so tic therapy day. [facility] UNABLE TO 2022- No Compound Uni vers FIND 01-18 Drug ity of 00:00: 00:00 [place] 00 :00 MD Rob [facility] sucralfate 2022- No Ulcerative 1000mg Take 10 mL Univers (CARAFATE) 01-18 oral (1,000 mg) it y of 100 mg/mL 00:00: 00:00 mucositis by mouth 4 [place] suspension 00 :00 due to (four) MD kusum benjamin Suraj so tic therapy day. [facility] UNABLE TO 2022- No Compound Uni vers FIND 01-18 Drug ity of 00:00: 00:00 [place] 00 :00 MD Rob [facility] sucralfate 2022- No Ulcerative 1000mg Take 10 mL Univers (CARAFATE) 01-18 oral (1,000 mg) it y of 100 mg/mL 00:00: 00:00 mucositis by mouth 4 [place] suspension 00 :00 due to (four) MD kusum benjamin Suraj so tic therapy day. [facility] UNABLE TO 2022- No Compound Uni vers FIND 01-18 Drug ity of 00:00: 00:00 [place] 00 :00 MD Rob [facility] sucralfate 2022- No Ulcerative 1000mg Take 10 mL Univers (CARAFATE) 01-18 oral (1,000 mg) it y of 100 mg/mL 00:00: 00:00 mucositis by mouth 4 [place] suspension 00 :00 due to (four) MD kusum benjamin Suraj so tic therapy day. n Cancer Center UNABLE TO Compound Uni vers FIND 01-18 Drug ity of 00:00: 00:00 [place] 00 :00 MD Liane olivier [facility] sucralfate Ulcerative 1000mg Take 10 mL Univers (CARAFATE) 01-18 oral (1,000 mg) it y of 100 mg/mL 00:00: 00:00 mucositis by mouth 4 [place] suspension 00 :00 due to (four) MD kusum benjamin Suraj so tic therapy day. n Cancer Center UNABLE TO Compound Uni vers FIND 01-18 Drug ity of 00:00: 00:00 [place] 00 :00 MD Liane olivier [facility] sucralfate Ulcerative 1000mg Take 10 mL Univers (CARAFATE) 01-18 oral (1,000 mg) it y of 100 mg/mL 00:00: 00:00 mucositis by mouth 4 [place] suspension 00 :00 due to (four) MD kusum benjamin Suraj so tic therapy day. n Cancer Center UNABLE TO Compound Uni vers FIND 01-18 Drug ity of 00:00: 00:00 [place] 00 :00 MD Liane olivier [facility] oxyCODONE-a 2022- No Neoplasm 1{tbl} Take 1 Univers cetaminophe -18 02- related tablet by ity of n 00:00: [...] 2 50U Inject 50 Un ally regular [facility] 01-18 diabetes to 125 i ty [...] directed. ity o f needle 00:00: 14:58 [place] 00 :12 MD Liane olivier [facility] insulin 2022- No Type 2 50U Inject 50 Un ally regular [facility] 01-18 diabetes to 125 i ty [...] directed. ity o f needle 00:00: 14:58 [place] 00 :12 MD Liane olivier [facility] insulin 2022- No Type 2 50U Inject 50 Un ally regular [facility] 01-18 diabetes to 125 i ty [...] directed. ity o f needle 00:00: 14:58 [place] 00 :12 MD Liane [facility]ivier [facility] [facility]- No Type 2 [...] directed. ity o f needle 00:00: 14:58 [place] 00 :12 MD Liane olivier [facility] insulin 2022- No Type 2 [...] directed. ity o f needle 00:00: 14:58 [place] 00 :12 MD Liane olivier [facility] insulin 2022- No Type 2 [...] directed. ity o f needle 00:00: 14:58 [place] 00 :12 MD Liane olivier [facility] insulin 2022- No Type 2 [...] directed. ity o f needle 00:00: 14:58 [place] 00 :12 MD Liane olivier [facility] [...] directed. ity o f needle 00:00: 14:58 [place] 00 :12 MD Liane olivier [facility] [...] of suspension 00:00: 00:00 mucositis mL by [place] ([facility] 00 :00 due to mouth MD antineoplas [...] of suspension 00:00: 00:00 mucositis mL by [place] ([facility] 00 :00 due to mouth MD antineoplas [...] of suspension 00:00: 00:00 mucositis mL by [place] ([facility] 00 :00 due to mouth MD antineoplas [...] of suspension 00:00: 00:00 mucositis mL by [place] ([facility]) 00 :00 due to mouth MD antineoplas [...] for Center muscle spasms (neck pain). xyloxylin 2022-2022- No Ulcerative 10mL [facility] oral 01-18 oral swallow 10 ity of suspension 00:00: 00:00 mucositis mL by [place] ([facility] 00 :00 due to mouth MD antineoplas [...] of suspension 00:00: 00:00 mucositis mL by [place] ([facility] 00 :00 due to mouth MD antineoplas [...] Ulcerative 10mL Swish and [facility] oral -18 01- oral swallow 10 ity of suspension 00:00: 00:00 mucositis mL by [place] ([facility]) 00 :00 due to mouth MD [...] therapy needed for n mouth Cancer pain. [place] sucralfate 2022- No Ulcerative 1000mg Take 10 [...] therapy needed for n mouth Cancer pain. [place] oxyCODONE-a 2022- No Neoplasm 1{tbl} Take 1 [...] therapy needed for n mouth Cancer pain. [place] sucralfate 2022- No Ulcerative 1000mg Take 10 [...] therapy needed for n mouth Cancer pain. [place] oxyCODONE-a 2022- No Neoplasm 1{tbl} Take 1 [...] therapy needed for n mouth Cancer pain. [place] sucralfate 2022- No Ulcerative 1000mg Take 10 mL [facility] (CARAFATE) 3-18 01-20 oral (1,000 mg) it y of 100 mg/mL 00:00: 00:00 mucositis by mouth 4 [place] suspension 00 :00 due to (four) MD antineoplas times a Suraj so tic therapy day. n [facility] metoprolol 2022- No Hypertensio 50mg Take 1 [facility] tartrate 01-18-20 n tablet (50 ity of (LOPRESSOR) 00:00: 00:00 mg) by [place]ie as 50 mg 00 :00 mouth MD tablet twice Anderso daily for n 30 days. [facility] sucralfate 2022- No Ulcerative 1000mg Take 10 mL [facility] (CARAFATE) 3-18 01-20 oral (1,000 mg) it y of 100 mg/mL 00:00: 00:00 mucositis by mouth 4 [place] suspension 00 :00 due to (four) MD antineoplas times a Suraj so tic therapy day. n Cancer [place] xyloxylin 2022- No Ulcerative 10mL Swish and [facility] oral 3-20 -20 oral swallow 10 ity of suspension 00:00: 00:00 mucositis mL every 6 [place] ([facility]) 00 :00 due to (six) MD antineoplas hours as Bandar rso tic therapy needed for n mouth Cancer pain. [place] oxyCODONE-a 2022- No Neoplasm 1{tbl} Take 1 [...] therapy needed for n mouth Cancer pain. [place] sucralfate 2022- No Ulcerative 1000mg Take 10 mL [facility] (CARAFATE) 3-20 -20 oral (1,000 mg) it y of 100 mg/mL 00:00: 00:00 mucositis by mouth 4 [place] suspension 00 :00 due to (four) MD antineoplas times a Suraj so tic therapy day. n Cancer [place] metoprolol 2022- No Hypertensio 50mg Take 1 [facility] tartrate 3-20 -20 n tablet (50 ity of (LOPRESSOR) 00:00: 00:00 mg) by Frankie as 50 mg 00 :00 mouth MD tablet twice Anderso daily for n 30 days. Cancer [place] sucralfate 2022- No Ulcerative 1000mg Take 10 [...] therapy needed for n mouth Cancer pain. [place] oxyCODONE-a 2022- No Neoplasm 1{tbl} Take 1 [...] therapy needed for n mouth Cancer pain. [place] sucralfate 2022- No Ulcerative 1000mg Take 10 mL [facility] (CARAFATE) 3-18 01-20 oral (1,000 mg) it y of 100 mg/mL 00:00: 00:00 mucositis by mouth 4 [place] suspension 00 :00 due to (four) MD antineoplas times a Suraj so tic therapy day. n Cancer [place] metoprolol 2022- No Hypertensio 50mg Take 1 [facility] tartrate -20 -20 n tablet (50 ity of (LOPRESSOR) 00:00: 00:00 mg) by [place]ie as 50 mg 00 :00 mouth MD tablet twice Anderso daily for n 30 days. Cancer [place] sucralfate 2022- No Ulcerative 1000mg Take 10 [...] therapy needed for n mouth Cancer pain. [place] oxyCODONE-a 2022- No Neoplasm 1{tbl} Take 1 [...] therapy needed for n mouth Cancer pain. [place] sucralfate 2022- No Ulcerative 1000mg Take 10 mL [facility] (CARAFATE) 3-18 01-20 oral (1,000 mg) it y of 100 mg/mL 00:00: 00:00 mucositis by mouth 4 [place] suspension 00 :00 due to (four) MD antineoplas times a Suraj so tic therapy day. n Cancer [place] metoprolol 2022- No Hypertensio 50mg Take 1 [facility] tartrate -18 01-20 n tablet (50 ity of (LOPRESSOR) 00:00: 00:00 mg) by [place]ie as 50 mg 00 :00 mouth MD tablet twice Anderso daily for n 30 days. Cancer [place] sucralfate 2022- No Ulcerative 1000mg Take 10 [...] No Adenocarcin 5mL [facility] (XYLOCAINE) 306 03-20 yanely of swallow 5 ity of [...] for Center muscle spasms (neck pain). pseudoephed 2022-0 2022- No Cancer 30mg Take 1 U nivers rine 3-11 03-14 associated tablet (30 it y of (Sudafed) 00:00: 00:00 pain mg) by [place] 30 mg 00 :00 mouth 2 MD tablet (two) Anderso times a n day as Cancer needed for Center congestion . pseudoephed 2022-0 3- No Cancer 30mg Take 1 U nivers rine 3-11 03-14 associated tablet (30 it y of (Sudafed) 00:00: 00:00 pain mg) by [place] 30 mg 00 :00 mouth 2 MD tablet (two) Anderso times a n day as Cancer needed for Center congestion . pseudoephed 2022-0 2022- No Cancer 30mg Take 1 U nivers rine 3-14 associated tablet (30 it y of (Sudafed) [...] needed for Center congestion . pseudoephed 2022-0 2023- No Cancer 30mg Take 1 U nivers rine 3-11 03-14 associated tablet (30 it y of (Sudafed) 00:00: 00:00 pain mg) by [place] 30 mg 00 :00 mouth 2 MD tablet (two) Anderso times a n day as Cancer needed for Center congestion . pseudoephed 2022-0 2023- No Cancer 30mg Take 1 U nivers [...] Cancer needed for Center congestion . HYDROcodone 0 Yes 2745 1{tbl} Take 1 [...] Pain. Indication s: chronic pain HYDROcodone 2022-0 2022- No 2745 1{tbl} Take [...] Cancer needed for Center nausea. ondansetron 2022-0 202- No Adenocarcin 8mg Dissolve 1 Univers (ZOFRAN-ODT 12-18 yanely of tablet (8 ity of ) 8 mg 00:00: 00:00 nasopharynx mg) on the [place] disintegrat 00 :00 tongue MD ing tablet every 8 Lauri o (eight) n hours as Cancer needed for Center nausea. ondansetron 3-0 2022- No Adenocarcin 8mg Dissolve 1 Univers [...] Adenocarcin 8mg Dissolve 1 Univers (ZOFRAN-ODT 2-17 02-17 yanely of tablet (8 ity of ) 8 mg 00:00: 00:00 nasopharynx mg) on the [place] disintegrat 00 :00 tongue MD ing tablet every 8 Lauri o (eight) n hours as Cancer needed for Center nausea. ondansetron 0 3- No Adenocarcin 8mg Dissolve 1 Univers (ZOFRAN-ODT 17 17 yanely of tablet (8 ity of ) 8 mg 00:00: 00:00 nasopharynx mg) on the [place] disintegrat 00 :00 tongue MD ing tablet every 8 Lauri o (eight) n hours as Cancer needed for Center nausea. prochlorper 2022-0 Yes Adenoid 10mg Take 1 U nivers azine 2-16 cystic tablet (10 ity of (Compazine) 00:00: carcinoma mg) by [place] 10 mg 00 of mouth MD tablet nasopharynx every 6 And erso , NOS (six) n hours as Cancer needed for Center nausea or vomiting (if not controlled by Ondansetro n). prochlorper 2022-0 Yes Adenoid 10mg Take 1 U nivers azine 2-16 cystic tablet (10 ity of (Compazine) 00:00: carcinoma mg) by [place] 10 mg 00 of mouth MD tablet nasopharynx every 6 And erso , NOS (six) n hours as Cancer needed for Center nausea or vomiting (if not controlled by Ondansetro n). prochlorper 2022-0 Yes Adenoid 10mg Take 1 U nivers azine 2-16 cystic tablet (10 ity of (Compazine) 00:00: carcinoma mg) by [place] 10 mg 00 of mouth MD tablet [...] ity of (Compazine) 00:00: carcinoma mg) by [place] 10 mg 00 of mouth MD tablet nasopharynx every 6 And erso , NOS (six) n hours as Cancer needed for Center nausea or vomiting (if not controlled by Ondansetro n). prochlorper 2023-0 Yes Adenoid 10mg Take 1 U nivers azine 2-16 cystic tablet (10 ity of (Compazine) 00:00: carcinoma mg) by [place] 10 mg 00 of mouth MD tablet nasopharynx every 6 And erso , NOS (six) n hours as Cancer needed for Center nausea or vomiting (if not controlled by Ondansetro n). ondansetron 3-0 2022- No Adenoid 8mg Take 1 Univers (ZOFRAN) 8 12-17-06 cystic tablet (8 i ty of mg tablet 00:00: 00:00 carcinoma mg) by [place] 00 :00 of mouth MD nasopharynx every 8 Suraj so , NOS (eight) n hours as Cancer needed for Center nausea or vomiting. ondansetron 2023-0 2022- No Adenoid 8mg Take 1 Univers (ZOFRAN) 8 2-16 -06 cystic tablet (8 i ty of mg tablet 00:00: 00:00 carcinoma mg) by [place] 00 :00 of mouth MD nasopharynx every 8 Suraj so , NOS (eight) n hours as Cancer needed for Center nausea or vomiting. ondansetron 2023-0 2023- No Adenoid 8mg Take 1 [facility] (ZOFRAN) 8 12-17-06 cystic tablet (8 i ty of mg tablet 00:00: 00:00 carcinoma mg) by [place] 00 :00 of mouth MD nasopharynx every 8 Suraj so , NOS (eight) n hours as Cancer needed for Center nausea or vomiting. ondansetron 3-0 2023- No Adenoid 8mg Take 1 [facility] (ZOFRAN) 8 12-17-06 cystic tablet (8 i ty of mg tablet 00:00: 00:00 carcinoma mg) by [place] 00 :00 of mouth MD nasopharynx every 8 Suraj so , NOS (eight) n hours as Cancer needed for Center nausea or vomiting. ondansetron 3-0 2023- No Adenoid 8mg Take 1 [facility] (ZOFRAN) 8 12-17 cystic tablet (8 i ty of mg tablet 00:00: 00:00 carcinoma mg) by [place] 00 :00 of mouth MD nasopharynx every 8 Suraj so , NOS (eight) n hours as Cancer needed for Center nausea or vomiting. ondansetron 3-0 2023- No Adenoid 8mg Take 1 [facility] (ZOFRAN) 8 12-17-06 cystic tablet (8 i ty of mg tablet 00:00: 00:00 carcinoma mg) by [place] 00 :00 of mouth MD nasopharynx every 8 Suraj so , NOS (eight) n hours as Cancer needed for Center nausea or vomiting. ondansetron 3-0 2023- No Adenoid 8mg Take 1 [facility] (ZOFRAN) 8 12-17-06 cystic tablet (8 i ty of mg tablet 00:00: 00:00 carcinoma mg) by [place] 00 :00 of mouth MD nasopharynx every 8 Suraj so , NOS (eight) n hours as Cancer needed for Center nausea or vomiting. ondansetron 2023-0 2023- No Adenoid 8mg Take 1 [facility] (ZOFRAN) 8 12-17-06 cystic tablet (8 i ty of mg tablet 00:00: 00:00 carcinoma mg) by [place] 00 :00 of mouth MD nasopharynx every 8 Suraj so , NOS (eight) n hours as Cancer needed for Center nausea or vomiting. fluoride, 2022-0 2023- No Adenoid Apply to [facility] sodium, 2-15 03-14 cystic teeth ity of (DENTAGEL) 00:00: 00:00 carcinoma daily for [place] 1.1% dental 00 :00 of 30 days. gel nasopharynx AndMYLA waters [facility] fluoride, 2022- No Adenoid Apply to [facility] sodium, 2-15 03-14 cystic teeth ity of (DENTAGEL) 00:00: 00:00 carcinoma daily for [place] 1.1% dental 00 :00 of 30 days. gel nasopharynx AndMYLA waters [facility] fluoride, 2022- No Adenoid Apply to [facility] sodium, 2-15 03-14 cystic teeth ity of (DENTAGEL) 00:00: 00:00 carcinoma daily for [place] 1.1% dental 00 :00 of 30 days. gel nasopharynx AndMYLA waters [facility] fluoride, 2022- No Adenoid Apply to [facility] sodium, 2-15 03-14 cystic teeth ity of (DENTAGEL) 00:00: 00:00 carcinoma daily for [place] 1.1% dental 00 :00 of 30 days. gel nasopharynx AndMYLA waters [facility] fluoride, 2022- No Adenoid Apply to [facility] sodium, 2-15 03-14 cystic teeth ity of (DENTAGEL) 00:00: 00:00 carcinoma daily for [place] 1.1% dental 00 :00 of 30 days. gel nasopharynx AndMYLA waters [facility] fluoride, 2022- No Adenoid Apply to [facility] sodium, 2-15 03-14 cystic teeth ity of (DENTAGEL) 00:00: 00:00 carcinoma daily for [place] 1.1% dental 00 :00 of 30 days. gel nasopharynx AndMYLA waters [facility] fluoride, 0 2022- No Adenoid Apply to [facility] sodium, 2-15 03-14 cystic teeth ity of (DENTAGEL) 00:00: 00:00 carcinoma daily for [place] 1.1% dental 00 :00 of 30 days. gel nasopharynx AndMYLA waters [facility] fluoride, 2022- No Adenoid Apply to [facility] sodium, 2-15 03-14 cystic teeth ity of (DENTAGEL) 00:00: 00:00 carcinoma daily for [place] 1.1% dental 00 :00 of 30 days. MD [place] nasopharynx MYLA [facility] celecoxib 2022- No Headache, 200mg Take 1 Univers (CeleBREX) 12-16 not capsule ity o f 200 mg 00:00: 00:00 otherwise (200 mg) [place] capsule 00 :00 specified by mouth MD daily. [facility] celecoxib 2022- No Headache, 200mg Take 1 [facility] (CeleBREX) 12-16 not capsule ity o f 200 mg 00:00: 00:00 otherwise (200 mg) [place] capsule 00 :00 specified by mouth MD daily. [facility] celecoxib 2022- No Headache, 200mg Take 1 [facility] (CeleBREX) 12-16 not capsule ity o f 200 mg 00:00: 00:00 otherwise (200 mg) [place] capsule 00 :00 specified by mouth MD daily. [facility] celecoxib 2022- No Headache, 200mg Take 1 [facility] (CeleBREX) 12-16 not capsule ity o f 200 mg 00:00: 00:00 otherwise (200 mg) [place] capsule 00 :00 specified by mouth MD daily. [facility] celecoxib 2022- No Headache, 200mg Take 1 [facility] (CeleBREX) 12-16 not capsule ity o f 200 mg 00:00: 00:00 otherwise (200 mg) [place] capsule 00 :00 specified by mouth MD daily. [facility] celecoxib 2022- No Headache, 200mg Take 1 [facility] (CeleBREX) 12-16 not capsule ity o f 200 mg 00:00: 00:00 otherwise (200 mg) [place] capsule 00 :00 specified by mouth MD daily. [facility] celecoxib 2022- No Headache, 200mg Take 1 [facility] (CeleBREX) 12-16 not capsule ity o f 200 mg 00:00: 00:00 otherwise (200 mg) [place] capsule 00 :00 specified by mouth MD daily. [facility] celecoxib 2022- No Headache, 200mg Take 1 [facility] (CeleBREX) 215 12-30 not capsule ity o f 200 mg 00:00: 00:00 otherwise (200 mg) [place] capsule 00 :00 specified by mouth MD daily. [facility] Yes Type 2 1.8mg Inject 0.3 U nivers 2-Patrick 0.6 2-14 diabetes mL (1.8 ity of mg/0.1 mL 00:00: mellitus mg) under [place] (18 mg/3 00 without the skin MD mL) pnij complicatio daily. [facility] Yes Type 2 1.8mg Inject 0.3 U nivers 2-Patrick 0.6 2-14 diabetes mL (1.8 ity of mg/0.1 mL 00:00: mellitus mg) under [place] (18 mg/3 00 without the skin MD mL) pnij complicatio daily. An derso injection [facility] Yes Type 2 1.8mg Inject 0.3 U nivers 2-Patrick 0.6 2-14 diabetes mL (1.8 ity of mg/0.1 mL 00:00: mellitus mg) under [place] (18 mg/3 00 without the skin MD mL) pnij complicatio daily. An derso injection [facility] Yes Type 2 1.8mg Inject 0.3 U nivers 2-Patrick 0.6 2-14 diabetes mL (1.8 ity of mg/0.1 mL 00:00: mellitus mg) under [place] (18 mg/3 00 without the skin MD mL) pnij complicatio daily. [facility] Yes Type 2 1.8mg Inject 0.3 U nivers 2-Patrick 0.6 2-14 diabetes mL (1.8 ity of mg/0.1 mL 00:00: mellitus mg) under [place] (18 mg/3 00 without the skin MD mL) pnij complicatio daily. [facility] Yes Type 2 1.8mg Inject 0.3 U nivers 2-Patrick 0.6 2-14 diabetes mL (1.8 ity of mg/0.1 mL 00:00: mellitus mg) under [place] (18 mg/3 00 without the skin MD mL) pnij complicatio daily. An derso injection n n [facility] Yes Type 2 1.8mg Inject 0.3 U nivers 2-Patrick 0.6 2-14 diabetes mL (1.8 ity of mg/0.1 mL 00:00: mellitus mg) under [place] (18 mg/3 00 without the skin MD mL) pnij complicatio daily. An derso injection n n [facility] Yes Type 2 1.8mg Inject 0.3 U nivers 2-Patrick 0.6 2-14 diabetes mL (1.8 ity of mg/0.1 mL 00:00: mellitus mg) under [place] (18 mg/3 00 without the skin MD mL) pnij complicatio daily. An derso injection n n Cancer [place] [facility] 2022- No Type 2 1{devic Inject 1 [...] (eight) n hours. Cancer Center [facility] 2022- No Type 2 1{devic Inject 1 [...] every 8 Anderso (eight) n hours. Cancer [address] 2022- No Type 2 1{devic Inject [...] MD every 8 Anderso (eight) n hours. [address] 2022- No Type 2 1{devic Inject 1 [facility] Gen Pen 12-15 diabetes e} Device ity o f Needle 32 00:00: 00:00 mellitus under the [place] gauge x 00 :00 without skin 3 MD 32" ndle complicatio (three) Anderso n times a n day before Cancer meals. [place] gabapentin 2022- No Headache, 600mg Take 1 [facility] (NEURONTIN) 12-15 not tablet ity o f 600 mg 00:00: 00:00 otherwise (600 mg) [place] tablet 00 :00 specified by mouth MD every 8 Anderso (eight) n hours. Cancer [facility] 2022- No Type 2 1{devic Inject 1 [facility] Gen Pen 12-15 diabetes e} Device ity o f Needle 32 00:00: 00:00 mellitus under the [place] gauge x 00 :00 without skin 3 MD 32" ndle complicatio (three) Anderso n times a n day before Cancer meals. [place] gabapentin 2022- No Headache, 600mg Take 1 [facility] (NEURONTIN) 12-15 not tablet ity o f 600 mg 00:00: 00:00 otherwise (600 mg) [place] tablet 00 :00 specified by mouth MD every 8 Anderso (eight) n hours. [address] 2022- No Type 2 1{devic Inject 1 [facility] Gen Pen 12-15 diabetes e} Device ity o f Needle 32 00:00: 00:00 mellitus under the [place] gauge x 00 :00 without skin 3 MD 32" ndle complicatio (three) Anderso n times a n day before Cancer meals. [place] gabapentin 2022- No Headache, 600mg Take 1 [facility] (NEURONTIN) 12-15 not tablet ity o f 600 mg 00:00: 00:00 otherwise (600 mg) [place] tablet 00 :00 specified by mouth MD every 8 Anderso (eight) n hours. Cancer [address] 2022- No Type 2 1{devic Inject 1 [facility] Gen Pen 12-15 diabetes e} Device ity o f Needle 32 00:00: 00:00 mellitus under the [place] gauge x 00 :00 without skin 3 MD " ndle complicatio (three) Anderso n times a n day before Cancer meals. [place] gabapentin 2022- No Headache, 600mg Take 1 [facility] (NEURONTIN) 12-15 not tablet ity o f 600 mg 00:00: 00:00 otherwise (600 mg) [place] tablet 00 :00 specified by mouth MD every 8 Anderso (eight) n hours. Cancer [address] 2022- No Type 2 1{devic Inject 1 [facility] Gen Pen 12-15 diabetes e} Device ity o f Needle 32 00:00: 00:00 mellitus under the [place] gauge x 00 :00 without skin 3 MD " ndle complicatio (three) Anderso n times a n day before Cancer meals. [place] gabapentin 2022- No Headache, 600mg Take 1 [facility] (NEURONTIN) 12-15 not tablet ity o f 600 mg 00:00: 00:00 otherwise (600 mg) [place] tablet 00 :00 specified by mouth MD every 8 Anderso (eight) n hours. Cancer [place] metoprolol 2022- No Hypertensio 50mg Take 1 [facility] tartrate 12-15 03-20 n tablet (50 ity of (LOPRESSOR) 00:00: 00:00 mg) by [place] as 50 mg 00 :00 mouth MD tablet twice Anderso daily for n 30 days. [facility] insulin 2022- No Type 2 110U [...] No Hypertensio 50mg Take 1 [facility] tartrate 12-15 n tablet (50 ity of (LOPRESSOR) 00:00: 00:00 mg) by [place] as 50 mg 00 :00 mouth MD tablet twice Anderso daily for n 30 days. [facility] insulin 2022- No Type 2 110U [...] No Hypertensio 50mg Take 1 [facility] tartrate 12-15 n tablet (50 ity of (LOPRESSOR) 00:00: 00:00 mg) by [place] as 50 mg 00 :00 mouth MD tablet twice Anderso daily for n 30 days. [facility] insulin 2022- No Type 2 110U [...] No Hypertensio 50mg Take 1 [facility] tartrate 2-14 03-20 n tablet (50 ity of (LOPRESSOR) 00:00: 00:00 mg) by [place] as 50 mg 00 :00 mouth MD tablet twice Anderso daily for n 30 days. [facility] insulin 2022- No Type 2 110U [...] twice Anderso daily for n 30 days. [facility] insulin 2022- No Type 2 110U [...] twice Anderso daily for n 30 days. [facility] insulin 2022- No Type 2 110U [...] twice Anderso daily for n 30 days. [facility] insulin 2022- No Type 2 110U [...] twice Anderso daily for n 30 days. [facility] insulin No Type 2 110U Inject [...] No Neoplasm 1{tbl} Take 1 [facility] cetaminophe 12-15- related tablet by ity of n 00:00: 00:00 pain mouth [place] (Percocet) 00 :00 (acute) every 4 MD 5 mg-325 mg (chronic) (four) A nderso per tablet hours as n needed for Cancer moderate Center pain. oxyCODONE-a 2022- No Neoplasm 1{tbl} Take 1 [facility] cetaminophe -12 01- related tablet by ity of n 00:00: 00:00 pain mouth [place] (Percocet) 00 :00 (acute) every 4 MD 5 mg-325 mg (chronic) (four) A nderso per tablet hours as n needed for Cancer moderate Center pain. oxyCODONE-a 2022- No Neoplasm 1{tbl} Take 1 [facility] cetaminophe 2-14 - related tablet by ity of n 00:00: 00:00 pain mouth [place] (Percocet) 00 :00 (acute) every 4 MD 5 mg-325 mg (chronic) (four) A nderso per tablet hours as n needed for Cancer moderate Center pain. oxyCODONE-a 2022- No Neoplasm 1{tbl} Take 1 [facility] cetaminophe 2-14 - related tablet by ity of n 00:00: 00:00 pain mouth [place] (Percocet) 00 :00 (acute) every 4 MD 5 mg-325 mg (chronic) (four) A nderso per tablet hours as n needed for Cancer moderate Center pain. oxyCODONE-a 2022- No Neoplasm 1{tbl} Take 1 [facility] cetaminophe 2-14 - related tablet by ity of n 00:00: 00:00 pain mouth [place] (Percocet) 00 :00 (acute) every 4 MD 5 mg-325 mg (chronic) (four) A nderso per tablet hours as n needed for Cancer moderate Center pain. oxyCODONE-a 2022- No Neoplasm 1{tbl} Take 1 [facility] cetaminophe 2-14 - related tablet by ity of n 00:00: 00:00 pain mouth [place] (Percocet) 00 :00 (acute) every 4 MD 5 mg-325 mg (chronic) (four) A nderso per tablet hours as n needed for Cancer moderate Center pain. oxyCODONE-a 2022- No Neoplasm 1{tbl} Take 1 [facility] cetaminophe 2-14 - related tablet by ity of n [...] 2 110U Inject 110 U nivers regular [facility] 12-15 diabetes to 160 i ty of U-500 conc 00:00: 00:00 mellitus Units [place] (HumuLIN R 00 :00 without under the M D U-500, complicatio skin 3 Bandar rso Conc, n (three) n Kwikpen) times a Cancer 500 unit/mL day before Ce nter (3 mL) meals. insulin pen pantoprazol 2022- No Gastroesoph 40mg Take 1 Univers 12-15 ageal tablet (40 ity of (Protonix) 00:00: 00:00 reflux mg) by [place] 40 mg EC 00 :00 disease mouth MD tablet every Anderso morning n before Cancer breakfast Center for 30 days. insulin 2022- No Type 2 110U Inject 110 U nivers regular [facility] 12-15 diabetes to 160 i ty of U-500 conc 00:00: 00:00 mellitus Units [place] (HumuLIN R 00 :00 without under the M D U-500, complicatio skin 3 Bandar rso Conc, n (three) n Kwikpen) times a Cancer 500 unit/mL day before Ce nter (3 mL) meals. insulin pen pantoprazol 2022- No Gastroesoph 40mg Take 1 [facility] 12-15 ageal tablet (40 ity of (Protonix) 00:00: 00:00 reflux mg[place] by [place] 40 mg EC 00 :00 disease mouth MD tablet every Anderso morning n before Cancer breakfast Center for 30 days. insulin 2022- No Type 2 110U Inject 110 U nivers regular [facility] 12-15 diabetes to 160 i ty [...] disease mouth MD tablet every Anderso morning [facility] for 30 days. dexamethaso 2022- 202- No Adenocarcin 2mg Take 1 Univers ne 2-04 03-14 yanely of tablet (2 ity of (DECADRON) 00:00: 00:00 nasopharynx mg) by [place] 2 mg tablet 00 :00 mouth MD twice Anderso daily. [facility] dexamethaso 2022-2022- No Adenocarcin 2mg Take 1 Univers ne 2- 03-14 yanely of tablet (2 ity of (DECADRON) 00:00: 00:00 nasopharynx mg) by [place] 2 mg tablet 00 :00 mouth MD twice Anderso daily. [facility] dexamethaso 2022- No Adenocarcin 2mg Take 1 Univers ne 2- 03-14 yanely of tablet (2 ity of (DECADRON) 00:00: 00:00 nasopharynx mg) by [place] 2 mg tablet 00 :00 mouth MD twice Anderso daily. [facility] dexamethaso 2022- No Adenocarcin 2mg Take 1 Univers ne 2- 03-14 yanely of tablet (2 ity of (DECADRON) 00:00: 00:00 nasopharynx mg) by [place] 2 mg tablet 00 :00 mouth MD twice Anderso daily. [facility] dexamethaso 2022- No Adenocarcin 2mg Take 1 [facility] ne 2-04 03-14 yanely of tablet (2 ity of (DECADRON) 00:00: 00:00 nasopharynx mg) by [place] 2 mg tablet 00 :00 mouth MD twice Anderso daily. [facility] dexamethaso 2022- No Adenocarcin 2mg Take 1 [facility] ne 2-04 03-14 yanely of tablet (2 ity of (DECADRON) 00:00: 00:00 nasopharynx mg) by [place] 2 mg tablet 00 :00 mouth MD twice Anderso daily. [facility] dexamethaso 202- No Adenocarcin 2mg Take 1 [facility] ne 2-04 03-14 yan[place] of tablet (2 ity of (DECADRON) 00:00: 00:00 nasopharynx mg) by [place] 2 mg tablet 00 :00 mouth MD twice [facility] daily. [facility] dexamethaso 3-0 202- No Adenocarcin 2mg Take 1 [facility] ne 2 03-14 yanely of tablet (2 ity of (DECADRON) 00:00: 00:00 nasopharynx mg) by [place] 2 mg tablet 00 :00 mouth MD twice [facility] daily. [facility] HYDROmorpho 2022-0 2023- No Adenocarcin 2mg Take 1 [facility] ne 2 02-14 yanely of tablet (2 ity of (DILAUDID) 00:00: 00:00 nasopharynx mg) by [place] 2 mg tablet 00 :00 mouth MD every 4 Anderso (four) n hours as Cancer needed Center (cancer pain). HYDROmorpho 3-0 2023- No Adenocarcin 2mg Take 1 [facility] ne 2 02-14 yanely of tablet (2 ity of (DILAUDID) 00:00: 00:00 nasopharynx mg) by [place] 2 mg tablet 00 :00 mouth MD every 4 Anderso (four) n hours as Cancer needed Center (cancer pain). HYDROmorpho 3-0 2023- No Adenocarcin 2mg Take 1 [facility] ne 12-02 02-14 yanely of tablet (2 ity of (DILAUDID) 00:00: 00:00 nasopharynx mg) by [place] 2 mg tablet 00 :00 mouth MD every 4 Anderso (four) n hours as Cancer needed Center (cancer pain). HYDROmorpho 3-0 202- No Adenocarcin 2mg Take 1 Univers [...] No Adenocarcin 2mg Take 1 [facility] ne 12-02-14 yanely of tablet (2 ity of (DILAUDID) 00:00: 00:00 nasopharynx mg) by [place] 2 mg tablet 00 :00 mouth MD every 4 Anderso (four) n hours as Cancer needed Center (cancer pain). HYDROmorpho 2023-0 2023- No Adenocarcin 2mg Take 1 [facility] ne 12-02-14 yanely of tablet (2 ity of (DILAUDID) 00:00: 00:00 nasopharynx mg) by [place] 2 mg tablet 00 :00 mouth MD every 4 Anderso (four) n hours as Cancer needed Center (cancer pain). ondansetron 2023-0 2023- No Adenocarcin 8mg Dissolve [...] Indication s: chronic pain colchicine 3-0 Yes [id number] .6mg Take 1 U nivers 0.6 mg 1-18 tablet by ity of tablet 00:00: mouth in [place] 00 the Medical morning. Branch HYDROcodone 2022-0 Yes [id number] 1{tbl} Take 1 Un ally -acetaminop 1-18 tablet by ity of hen 7.5-325 00:00: mouth [place] mg per 00 every 6 Medical tablet (six) Branch hours as needed for Pain. Indication s: chronic pain colchicine 2022-0 Yes [id number] .6mg Take 1 U nivers 0.6 mg 1-18 tablet by ity of tablet 00:00: mouth in [place] 00 the Medical morning. Branch colchicine 2022-0 Yes [id number] .6mg Take 1 U nivers 0.6 mg 1-18 tablet by ity of tablet 00:00: mouth in [place] the Medical morning. Branch colchicine 3-0 Yes [id number] .6mg Take 1 U nivers 0.6 mg 1-18 tablet by ity of tablet 00:00: mouth in [place] the Medical morning. Branch colchicine 3-0 Yes [id number] .6mg Take 1 U nivers 0.6 mg 1-18 tablet by ity of tablet 00:00: mouth in [place] 00 the Medical morning. Branch colchicine 3-0 Yes [id number] .6mg Take 1 U nivers 0.6 mg 1-18 tablet by ity of tablet 00:00: mouth in [place] 00 the Medical morning. Branch colchicine 3-0 Yes [id number] .6mg Take 1 U nivers 0.6 mg 1-18 tablet by ity of tablet 00:00: mouth in [place] 00 the Medical morning. Branch colchicine 2023-0 Yes [id number] .6mg Take 1 U nivers 0.6 mg 1-18 tablet by ity of tablet 00:00: mouth in [place] 00 the Medical morning. Branch colchicine 2023-0 Yes [id number] .6mg Take 1 U nivers 0.6 mg 1-18 tablet by ity of tablet 00:00: mouth in [place] 00 the Medical morning. Branch colchicine 2023-0 Yes [id number] .6mg Take 1 U nivers 0.6 mg 1-18 tablet by ity of tablet 00:00: mouth in [place] 00 the Medical morning. Branch colchicine 2022-0 Yes [id number] .6mg Take 1 U nivers 0.6 mg 1-18 tablet by ity of tablet 00:00: mouth in [place] the Medical morning. Branch colchicine 2022-0 Yes [id number] .6mg Take 1 U nivers 0.6 mg 1-18 tablet by ity of tablet 00:00: mouth in [place] the Medical morning. Branch colchicine 2022-0 Yes [id number] .6mg Take 1 U nivers 0.6 mg 1-18 tablet by ity of tablet 00:00: mouth in [place] the Medical morning. Branch colchicine 2022-0 Yes [id number] .6mg Take 1 U nivers 0.6 mg 1-18 tablet by ity of tablet 00:00: mouth in [place] the Medical morning. Branch HYDROcodone 2022- No [id number] 1{tbl} Take 1 U nivers -acetaminop -18 12-24 tablet by it y of hen 7.5-325 00:00: 00:00 [place] per 00 :00 every 6 Medical tablet (six) Branch [facility] as needed for Pain. Indication s: chronic pain HumuLIN 2022- No Univers 70/30 U-100 11-16 ity of Insulin 100 00:00: 00:00 [place] unit/mL 00 :00 MD (70-30) [facility] injection [facility] HumuLIN 2022- [...] 00:00: 00:00 [place] unit/mL 00 :[facility] [place] Hum[facility]LIN 2022- No Univers 70/30 U-100 11-16 ity of Insulin 100 00:00: 00:00 [place] unit/mL 00 :00 (70-30) [facility] HumuLIN 2022- No Univers 70/30 U-100 11-16 ity of Insulin 100 00:00: 00:00 [place] unit/mL 00 :00 (70-30) [facility] HumuLIN 2022- No Univers 70/30 U-100 11-16 ity of Insulin 100 00:00: 00:00 [place] unit/mL 00 :00 (70-30) [facility] HumuLIN 2022- No Univers 70/30 U-100 11-16 ity of Insulin 100 00:00: 00:00 [place] unit/mL 00 :00 (70-30) [facility] injection [facility] HYDROCHLORO 2022-0 Yes [id number] 12.5mg TAKE 1 Univers THIAZIDE 1-09 CAPSULE BY ity o f 12.5 mg 00:00: MOUTH [place] capsule 00 DAILY Medical Branch LISINOPRIL 2022-0 Yes [id number] TAKE 1/2 Univers 40 mg 1-09 TABLET BY ity of tablet 00:00: MOUTH [place] 00 TWICE Medical DAILY Branch HYDRALAZINE 2022-0 Yes [id number] TAKE 1 [facility] 100 mg 1-09 TABLET BY ity of tablet 00:00: MOUTH [place] 00 THREE Medical TIMES Branch DAILY HYDROCHLORO 2022-0 Yes [id number] 12.5mg TAKE 1 [facility] THIAZIDE 1-09 CAPSULE BY ity o f 12.5 mg 00:00: MOUTH [place] capsule 00 DAILY Medical Branch LISINOPRIL 2022-0 Yes [id number] TAKE 1/2 Univers 40 mg 1-09 TABLET BY ity of tablet 00:00: MOUTH [place] 00 TWICE Medical DAILY Branch HYDRALAZINE 3-0 Yes [id number] TAKE 1 [facility] 100 mg 1-09 TABLET BY ity of tablet 00:00: MOUTH [place] 00 THREE Medical TIMES Branch DAILY HYDROCHLORO 2022-0 Yes [id number] 12.5mg TAKE 1 [facility] THIAZIDE 1-09 CAPSULE BY ity o f 12.5 mg 00:00: MOUTH [place] capsule 00 DAILY Medical Branch LISINOPRIL 2023-0 Yes [id number] TAKE 1/2 Univers 40 mg 1-09 TABLET BY ity of tablet 00:00: MOUTH [place] 00 TWICE Medical DAILY Branch HYDRALAZINE 2023-0 Yes [id number] TAKE 1 [facility] 100 mg 1-09 TABLET BY ity of tablet 00:00: MOUTH [place] 00 THREE Medical TIMES Branch DAILY HYDROCHLORO 2023-0 Yes [id number] 12.5mg TAKE 1 [facility] THIAZIDE 1-09 CAPSULE BY ity o f 12.5 mg 00:00: MOUTH [place] capsule 00 DAILY Medical Branch LISINOPRIL 2023-0 Yes [id number] TAKE 1/2 [facility] 40 mg 1-09 TABLET BY ity of tablet 00:00: MOUTH [place] 00 TWICE Medical DAILY Branch HYDRALAZINE 3-0 Yes [id number] TAKE 1 [facility] 100 mg 1-09 TABLET BY ity of tablet 00:00: MOUTH [place] 00 THREE Medical TIMES Branch DAILY HYDROCHLORO 3-0 Yes [id number] 12.5mg TAKE 1 [facility] THIAZIDE 1-09 CAPSULE BY ity o f 12.5 mg 00:00: MOUTH [place] capsule 00 DAILY Medical Branch LISINOPRIL 2023-0 Yes [id number] TAKE 1/2 Univers 40 mg 1-09 TABLET BY ity of tablet 00:00: MOUTH [place] 00 TWICE Medical DAILY Branch HYDRALAZINE 3-0 Yes [id number] TAKE 1 [facility] 100 mg 1-09 TABLET BY ity of tablet 00:00: MOUTH [place] 00 THREE Medical TIMES Branch DAILY HYDROCHLORO 3-0 Yes [id number] 12.5mg TAKE 1 [facility] THIAZIDE 1-09 CAPSULE BY ity o f 12.5 mg 00:00: MOUTH [place] capsule 00 DAILY Medical Branch LISINOPRIL 2023-0 Yes [id number] TAKE 1/2 [facility] 40 mg 1-09 TABLET BY ity of tablet 00:00: MOUTH [place] 00 TWICE Medical DAILY Branch HYDRALAZINE 2023-0 Yes [id number] TAKE 1 [facility] 100 mg 1-09 TABLET BY ity of tablet 00:00: MOUTH [place] 00 THREE Medical TIMES Branch DAILY HYDROCHLORO 2023-0 Yes [id number] 12.5mg TAKE 1 [facility] THIAZIDE 1-09 CAPSULE BY ity o f 12.5 mg 00:00: MOUTH [place] capsule 00 DAILY Medical Branch LISINOPRIL 2023-0 Yes [id number] TAKE 1/2 [facility] 40 mg 1-09 TABLET BY ity of tablet 00:00: MOUTH [place] 00 TWICE Medical DAILY Branch HYDRALAZINE 3-0 Yes [id number] TAKE 1 [facility] 100 mg 1-09 TABLET BY ity of tablet 00:00: MOUTH [place] 00 THREE Medical TIMES Branch DAILY HYDROCHLORO 3-0 Yes [id number] 12.5mg TAKE 1 [facility] THIAZIDE 1-09 CAPSULE BY ity o f 12.5 mg 00:00: MOUTH [place] capsule 00 DAILY Medical Branch LISINOPRIL 2022-0 Yes [id number] TAKE 1/2 Univers 40 mg 1-09 TABLET BY ity of tablet 00:00: MOUTH [place] 00 TWICE Medical DAILY Branch HYDRALAZINE 2022-0 Yes [id number] TAKE 1 [facility] 100 mg 1-09 TABLET BY ity of tablet 00:00: MOUTH [place] THREE Medical TIMES Branch DAILY HYDROCHLORO 2022-0 Yes [id number] 12.5mg TAKE 1 [facility] THIAZIDE 1-09 CAPSULE BY ity o f 12.5 mg 00:00: MOUTH [place] capsule 00 DAILY Medical Branch LISINOPRIL 2022-0 Yes [id number] TAKE 1/2 [facility] 40 mg 1-09 TABLET BY ity of tablet 00:00: MOUTH [place] 00 TWICE Medical DAILY Branch HYDRALAZINE 2022-0 Yes [id number] TAKE 1 [facility] 100 mg 1-09 TABLET BY ity of tablet 00:00: MOUTH [place] THREE Medical TIMES Branch DAILY HYDROCHLORO 3-0 Yes [id number] 12.5mg TAKE 1 [facility] THIAZIDE 1-09 CAPSULE BY ity o f 12.5 mg 00:00: MOUTH [place] capsule 00 DAILY Medical Branch LISINOPRIL 2022-0 Yes [id number] TAKE 1/2 [facility] 40 mg 1-09 TABLET BY ity of tablet 00:00: MOUTH [place] 00 TWICE Medical DAILY Branch HYDRALAZINE 3-0 Yes [id number] TAKE 1 [facility] 100 mg 1-09 TABLET BY ity of tablet 00:00: MOUTH [place] 00 THREE Medical TIMES Branch DAILY HYDROCHLORO 3-0 Yes [id number] 12.5mg TAKE 1 [facility] THIAZIDE 1-09 CAPSULE BY ity o f 12.5 mg 00:00: MOUTH [place] capsule 00 DAILY Medical Branch LISINOPRIL 3-0 Yes [id number] TAKE 1/2 [facility] 40 mg 1-09 TABLET BY ity of tablet 00:00: MOUTH [place] 00 TWICE Medical DAILY Branch HYDRALAZINE 2023-0 Yes [id number] TAKE 1 [facility] 100 mg 1-09 TABLET BY ity of tablet 00:00: MOUTH [place] 00 THREE Medical TIMES Branch DAILY HYDROCHLORO 2023-0 Yes [id number] 12.5mg TAKE 1 [facility] THIAZIDE 1-09 CAPSULE BY ity o f 12.5 mg 00:00: MOUTH [place] capsule 00 DAILY Medical Branch LISINOPRIL 2023-0 Yes [id number] TAKE 1/2 [facility] 40 mg 1-09 TABLET BY ity of tablet 00:00: MOUTH [place] 00 TWICE Medical DAILY Branch HYDRALAZINE 2023-0 Yes [id number] TAKE 1 [facility] 100 mg 1-09 TABLET BY ity of tablet 00:00: MOUTH [place] 00 THREE Medical TIMES Branch DAILY HYDROCHLORO 2023-0 Yes [id number] 12.5mg TAKE 1 [facility] THIAZIDE 1-09 CAPSULE BY ity o f 12.5 mg 00:00: MOUTH [place] capsule 00 DAILY Medical Branch LISINOPRIL 2023-0 Yes [id number] TAKE 1/2 [facility] 40 mg 1-09 TABLET BY ity of tablet 00:00: MOUTH [place] 00 TWICE Medical DAILY Branch HYDRALAZINE 2023-0 Yes [id number] TAKE 1 [facility] 100 mg 1-09 TABLET BY ity of tablet 00:00: MOUTH [place] 00 THREE Medical TIMES Branch DAILY HYDROCHLORO 2023-0 Yes [id number] 12.5mg TAKE 1 [facility] THIAZIDE 1-09 CAPSULE BY ity o f 12.5 mg 00:00: MOUTH [place] capsule 00 DAILY Medical Branch LISINOPRIL 2023-0 Yes [id number] TAKE 1/2 [facility] 40 mg 1-09 TABLET BY ity of tablet 00:00: MOUTH [place] 00 TWICE Medical DAILY Branch HYDROCHLORO 2023-0 Yes [id number] 12.5mg TAKE 1 [facility] THIAZIDE 1-09 CAPSULE BY ity o f 12.5 mg 00:00: MOUTH [place] capsule 00 DAILY Medical Branch LISINOPRIL 2023-0 Yes [id number] TAKE 1/2 [facility] 40 mg 1-09 TABLET BY ity of tablet 00:00: MOUTH [place] 00 TWICE Medical DAILY Branch HYDROCHLORO 2023-0 Yes [id number] 12.5mg TAKE 1 [facility] THIAZIDE 1-09 CAPSULE BY ity o f 12.5 mg 00:00: MOUTH [place] capsule 00 DAILY Medical Branch HYDROCHLORO 2023-0 Yes [id number] 12.5mg TAKE 1 [facility] THIAZIDE 11-09 CAPSULE BY ity o f 12.5 mg 00:00: MOUTH [place] capsule 00 DAILY Medical Branch LISINOPRIL 2022- No [id number] TAKE 1/2 Univers 40 mg 11-09 TABLET BY ity of tablet 00:00: 00:00 MOUTH [place] 00 :00 TWICE Medical DAILY Branch HYDRALAZINE 2022- No [id number] TAKE 1 [facility] 100 mg 11-09 TABLET BY ity of tablet 00:00: 00:00 MOUTH [place] 00 :00 THREE Medical TIMES Branch DAILY hydroCHLORO 2022- No 12.5mg 1 capsule [facility] thiazide 11-09 (12.5 mg) ity o f (MICROZIDE) 00:00: 00:00 [place] 12.5 mg 00 :00 morning. MD restrepo [facility] hydroCHLORO 2022- No 12.5mg 1 capsule [facility] thiazide 11-09 (12.5 mg) ity o f (MICROZIDE) 00:00: 00:00 [place] 12.5 mg 00 :00 morning. MD restrepo [facility] hydroCHLORO 2022- No 12.5mg 1 capsule [facility] thiazide 11-09 (12.5 mg) ity o f (MICROZIDE) 00:00: 00:00 [place] 12.5 mg 00 :00 morning. MD restrepo [facility] hydroCHLORO 2022- No 12.5mg 1 capsule [facility] thiazide 11-0923 (12.5 mg) ity o f (MICROZIDE) 00:00: 00:00 [place] 12.5 mg 00 :00 morning. MD restrepo [facility] hydroCHLORO 2022- No 12.5mg 1 capsule [facility] thiazide 11-0923 (12.5 mg) ity o f (MICROZIDE) 00:00: 00:00 [place] 12.5 mg 00 :00 morning. MD restrepo [facility] hydroCHLORO 2022- No 12.5mg 1 capsule [facility] thiazide 11-09 (12.5 mg) ity o f (MICROZIDE) 00:00: 00:00 [place] 12.5 mg 00 :00 morning. MD capsule [facility] hydroCHLORO 2022- No 12.5mg 1 capsule [facility] thiazide 11-09 (12.5 mg) ity o f (MICROZIDE) 00:00: 00:00 [place] 12.5 mg 00 :00 morning. MD capsule [facility] hydroCHLORO 2022- No 12.5mg 1 capsule [facility] thiazide 11-09 (12.5 mg) ity o f (MICROZIDE) 00:00: 00:00 [place] 12.5 mg 00 :00 morning. MD capsule [facility] cloNIDine 2022- No TAKE 1 Unive rs HCl 11-09-20 TABLET BY ity of (CATAPRES) 00:00: 00:00 MOUTH [place] 0.2 mg 00 :00 THREE MD tablet TIMES [place] DAILY [facility] cloNIDine 2022- No TAKE 1 Unive rs HCl 11-09-20 TABLET BY ity of (CATAPRES) 00:00: 00:00 MOUTH [place] 0.2 mg 00 :00 THREE MD tablet TIMES [place] DAILY [facility] cloNIDine 2022- No TAKE 1 Unive rs HCl 11-09-20 TABLET BY ity of (CATAPRES) 00:00: 00:00 MOUTH [place] 0.2 mg 00 :00 THREE MD tablet TIMES [place] DAILY [facility] cloNIDine 2022- No TAKE 1 Unive rs HCl 11-09-20 TABLET BY ity of (CATAPRES) 00:00: 00:00 MOUTH [place] 0.2 mg 00 :00 THREE MD tablet TIMES [place] DAILY [facility] cloNIDine 2022- No TAKE 1 Unive rs HCl 11-09-20 TABLET BY ity of (CATAPRES) 00:00: 00:00 MOUTH [place] 0.2 mg 00 :00 THREE MD tablet TIMES [place] DAILY [facility] cloNIDine 2022- No TAKE 1 [...] rso RECTUM n TWICE A Cancer DAY. [place] hydrocortis 2022- No UNWRAP AND Univers one 11-06 INSERT ONE ity of (ANUSOL-HC) 00:00: 00:00 (1) [place] 25 mg 00 :00 SUPPOSITOR MD suppository Y IN THE [place] rso RECTUM n TWICE A Cancer DAY. [place] hydrocortis 2022- No UNWRAP AND Univers one 11-06 INSERT ONE ity of (ANUSOL-HC) 00:00: 00:00 (1) [place] 25 mg 00 :00 SUPPOSITOR MD suppository Y IN THE [place] rso RECTUM n TWICE A Cancer DAY. [place] hydrocortis 2022- No UNWRAP AND Univers one 11-06 INSERT ONE ity of (ANUSOL-HC) 00:00: 00:00 (1) [place] 25 mg 00 :00 SUPPOSITOR MD suppository Y IN THE [place] r[place] RECTUM n TWICE A Cancer DAY. [place] hydrocortis 2022- No UNWRAP AND Univers one 11-06 INSERT ONE ity of (ANUSOL-HC) 00:00: 00:00 (1) [place] 25 mg 00 :00 SUPPOSITOR MD suppository Y IN THE [place] r[place] RECTUM n TWICE A Cancer DAY. [place] hydrocortis 2022- No UNWRAP AND Univers one 11-06 INSERT ONE ity of (ANUSOL-HC) 00:00: 00:00 (1) [place] 25 mg 00 :00 SUPPOSITOR MD suppository Y IN THE [place] RECTUM n TWICE A Cancer DAY. [place] hydrocort 2022- No UNWRAP AND Univers one 11-06 INSERT ONE ity of (ANUSOL-HC) 00:00: 00:00 (1) [place] 25 mg 00 :00 SUPPOSITOR MD suppository Y IN THE [place] [facility] [facility] Univers one 11-06 INSERT ONE ity of (ANUSOL-HC) 00:00: 00:00 (1) [place] 25 mg 00 :00 SUPPOSITOR MD suppository Y IN THE [place] RECTUM n TWICE A Cancer DAY. [place] METOPROLOL Yes TAKE 1 Unive rs TARTRATE [...] 2023-0 Yes TAKE 1 Unive rs TARTRATE -03 TABLET BY ity of 100 mg [...] mg 00 :00 TWICE MD tablet DAILY [facility] metoprolol 2022- No TAKE 1 Univ ers tartrate 11-03 TABLET BY ity o f (LOPRESSOR) 00:00: 00:00 MOUTH [place] 100 mg 00 :00 TWICE MD tablet DAILY [facility] metoprolol 2022- No TAKE 1 Univ ers tartrate 11-03 TABLET BY ity o f (LOPRESSOR) 00:00: 00:00 MOUTH [place] 100 mg 00 :00 TWICE MD tablet DAILY [facility] metoprolol 2022- No TAKE 1 Univ ers tartrate 11-03 TABLET BY ity o f (LOPRESSOR) 00:00: 00:00 MOUTH [place] 100 mg 00 :00 TWICE MD tablet DAILY [facility] metoprolol 2022- No TAKE 1 Univ ers tartrate 11-03 TABLET BY ity o f (LOPRESSOR) 00:00: 00:00 MOUTH [place] 100 mg 00 :00 TWICE MD tablet DAILY [facility] metoprolol 2022- No TAKE 1 Univ ers tartrate 11-03 TABLET BY ity o f (LOPRESSOR) 00:00: 00:00 MOUTH [place] 100 mg 00 :00 TWICE MD tablet DAILY [facility] metoprolol 2022- No TAKE 1 Univ ers tartrate 11-03 TABLET BY ity o f (LOPRESSOR) 00:00: 00:00 MOUTH [place] 100 mg 00 :00 TWICE MD tablet DAILY [facility] metoprolol 2022- No TAKE 1 [facility] tartrate 11-03 TABLET BY ity o f (LOPRESSOR) 00:00: 00:00 MOUTH [place] 100 mg 00 :00 TWICE MD tablet DAILY [place] n Cancer [place] METOPROLOL 2022- No TAKE 1 [facility] ers TARTRATE 11-03 TABLET BY ity o f 100 mg 00:00: 00:00 MOUTH [place] tablet 00 :00 TWICE Medical DAILY [place] [facility] TAKE 1 [facility] ers (ZyrTEC) 10 01-12 TABLET BY it y of mg tablet 00:00: 00:00 M[place]TH [place]CE [place] 00 :[place] DAILY MD NEEDED FOR [place] ALLERGIES n [facility] cetirizine 2021-11- No TAKE 1 [facility] ers (ZyrTE) 10 01-12 TABLET BY it y of mg tablet 00:00: 00:00 MOUTH [place]CE [place] 00 :00 DAILY MD NEEDED FOR [place] ALLERGIES n [facility] cetirizine 2021-11- No TAKE 1 [facility] ers (ZyrTEC) 10 01-12 TABLET BY it y of mg tablet 00:00: 00:00 MOUTH [place]CE [place] 00 :00 DAILY MD NEEDED FOR [place] ALLERGIES n [facility] cetirizine 2021-11- No TAKE 1 [facility] ers (ZyrTEC) 10 01-12 TABLET BY it y of mg tablet 00:00: 00:00 MOUTH [place]CE [place] 00 :00 DAILY MD NEEDED FOR [place] ALLERGIES n Cancer [place] cetirizine 2021-11- No TAKE 1 [facility] ers (ZyrTEC) 10 01-12 TABLET BY it y of mg tablet 00:00: 00:00 MOUTH [place]CE [place] 00 :00 DAILY MD NEEDED FOR [place] ALLERGIES n Cancer [place] cetirizine 2021-11- No TAKE 1 [facility] ers (ZyrTE) 10 01-12 TABLET BY it y of mg tablet 00:00: 00:00 MOUTH [place]CE [place] 00 :00 DAILY MD NEEDED FOR [place] ALLERGIES n Cancer [place] cetirizine 2021-11- No TAKE 1 [facility] ers (ZyrTE) 10 01-12 TABLET BY it y of mg tablet 00:00: 00:00 MOUTH [place]CE [place] 00 :00 DAILY MD NEEDED FOR [place] ALLERGIES [facility] cetirizine 2021-11- No TAKE 1 [facility]) 10 01-12 TABLET BY it y of mg tablet 00:00: 00:00 MOUTH [place]CE [place] 00 :00 DAILY MD NEEDED FOR [place] ALLERGIES [facility] gabapentin 2021-11 Yes [id number] 600mg Take 1 [facility] 600 mg 2-21 tablet by ity of tablet 00:00: mouth in [place] 00 the Medical morning Branch and 1 tablet at noon and 1 tablet in the evening. HYDROcodone 2021-11 Yes [id number] 1{tbl} Take 1 Un ally -acetaminop 2-21 tablet by ity of hen 7.5-325 00:00: mouth [place] mg per 00 every 6 Medical tablet (six) Branch hours as needed for Pain. Indication s: chronic pain Diclofenac 2021-11 Yes [id number] Apply to [facility] Sodium 1 % 2-21 area(s) 3 ity of gel 00:00: (three) [place] 00 times Medical daily. Branch gabapentin 2021-11 Yes [id number] 600mg Take 1 [facility] 600 mg 2-21 tablet by ity of tablet 00:00: mouth in [place] 00 the Medical morning Branch and 1 tablet at noon and 1 tablet in the evening. HYDROcodone 2021-11 Yes [id number] 1{tbl} Take 1 Un ally -acetaminop 2-21 tablet by ity of hen 7.5-325 00:00: mouth [place] mg per 00 every 6 Medical tablet (six) Branch hours as needed for Pain. Indication s: chronic pain Diclofenac 2021-11 Yes [id number] Apply to Univers Sodium 1 % 2-21 area(s) 3 ity of gel 00:00: (three) [place] 00 times Medical daily. Branch gabapentin 2021-11 Yes [id number] 600mg Take 1 [facility] 600 mg 2-21 tablet by ity of tablet 00:00: mouth in [place] 00 the Medical morning Branch and 1 tablet at noon and 1 tablet in the evening. HYDROcodone 2021-11 Yes [id number] 1{tbl} Take 1 Un ally -acetaminop 2-21 tablet by ity of hen 7.5-325 00:00: mouth [place] mg per 00 every 6 Medical tablet (six) Branch hours as needed for Pain. Indication s: chronic pain Diclofenac 2021- Yes [id number] Apply to Univers Sodium 1 % 2-21 area(s) 3 ity of gel 00:00: (three) [place] 00 times Medical daily. Branch gabapentin 2021-11 Yes [id number] 600mg Take 1 [facility] 600 mg 2-21 [...] Indication s: chronic pain Diclofenac 2021-11 Yes [id number] Apply to [facility] Sodium 1 % 2-21 area(s) 3 ity of gel 00:00: (three) [place] 00 times Medical daily. Branch gabapentin 2021-11 Yes [id number] 600mg Take 1 [facility] 600 mg 2-21 tablet by ity of tablet 00:00: mouth in [place] 00 the Medical morning Branch and 1 tablet at noon and 1 tablet in the evening. HYDROcodone 2021- Yes [id number] 1{tbl} Take 1 Un ally -acetaminop 2-21 tablet by ity of hen 7.5-325 00:00: mouth [place] mg per 00 every 6 Medical tablet (six) Branch hours as needed for Pain. Indication s: chronic pain Diclofenac 2021-11 Yes [id number] Apply to Univers Sodium 1 % 2-21 area(s) 3 ity of gel 00:00: (three) [place] 00 times Medical daily. Branch gabapentin 2021- Yes [id number] 600mg Take 1 [facility] 600 mg 2-21 [...] Indication s: chronic pain Diclofenac 2021-11 Yes [id number] Apply to [facility] Sodium 1 % 2-21 area(s) 3 ity of gel 00:00: (three) [place] 00 times Medical daily. Branch gabapentin 2021-11 Yes [id number] 600mg Take 1 [facility] 600 mg 2-21 tablet by ity of tablet 00:00: mouth in [place] 00 the Medical morning Branch and 1 tablet at noon and 1 tablet in the evening. Diclofenac 2021-11 Yes [id number] Apply to [facility] Sodium 1 % 2-21 area(s) 3 ity of gel 00:00: (three) [place] 00 times Medical daily. Branch gabapentin 2021-11 Yes [id number] 600mg Take 1 [facility] 600 mg 2-21 tablet by ity of tablet 00:00: mouth in [place] 00 the Medical morning Branch and 1 tablet at noon and 1 tablet in the evening. Diclofenac 2021-11 Yes [id number] Apply to [facility] Sodium 1 % 2-21 area(s) 3 ity of gel 00:00: (three) [place] 00 times Medical daily. Branch gabapentin 2021-11 Yes [id number] 600mg Take 1 [facility] 600 mg 2-21 tablet by ity of tablet 00:00: mouth in [place] 00 the Medical morning Branch and 1 tablet at noon and 1 tablet in the evening. Diclofenac 2021-11 Yes [id number] Apply to [facility] Sodium 1 % 2-21 area(s) 3 ity of gel 00:00: (three) [place] 00 times Medical daily. Branch gabapentin 2021-11 Yes [id number] 600mg Take 1 [facility] 600 mg 2-21 tablet by ity of tablet 00:00: mouth in [place] 00 the Medical morning Branch and 1 tablet at noon and 1 tablet in the evening. Diclofenac 2021-11 Yes [id number] Apply to [facility] Sodium 1 % 2-21 area(s) 3 ity of gel 00:00: (three) [place] 00 times Medical daily. Branch gabapentin 2021-11 Yes [id number] 600mg Take 1 [facility] 600 mg 2-21 tablet by ity of tablet 00:00: mouth in [place] 00 the Medical morning Branch and 1 tablet at noon and 1 tablet in the evening. Diclofenac 2021-11 Yes [id number] Apply to [facility] Sodium 1 % 2-21 area(s) 3 ity of gel 00:00: (three) [place] 00 times Medical daily. Branch gabapentin 2021- Yes [id number] 600mg Take 1 [facility] 600 mg 2-21 tablet by ity of tablet 00:00: mouth in [place] 00 the Medical morning Branch and 1 tablet at noon and 1 tablet in the evening. Diclofenac 2021- Yes [id number] Apply to [facility] Sodium 1 % 2-21 area(s) 3 ity of gel 00:00: (three) [place] 00 times Medical daily. Branch gabapentin 2021- Yes [id number] 600mg Take 1 [facility] 600 mg 2-21 tablet by ity of tablet 00:00: mouth in [place] 00 the Medical morning Branch and 1 tablet at noon and 1 tablet in the evening. Diclofenac 2021- Yes [id number] Apply to [facility] Sodium 1 % 2-21 area(s) 3 ity of gel 00:00: (three) [place] 00 times Medical daily. Branch gabapentin 2021- Yes [id number] 600mg Take 1 [facility] 600 mg 2-21 tablet by ity of tablet 00:00: mouth in [place] 00 the Medical morning Branch and 1 tablet at noon and 1 tablet in the evening. Diclofenac 2021- Yes [id number] Apply to Univers Sodium 1 % 2-21 area(s) 3 ity of gel 00:00: (three) [place] 00 times Medical daily. Branch gabapentin 2021- Yes [id number] 600mg Take 1 [facility] 600 mg 2-21 tablet by ity of tablet 00:00: mouth in [place] 00 the Medical morning Branch and 1 tablet at noon and 1 tablet in the evening. Diclofenac 2021-1 Yes [id number] Apply to Univers Sodium 1 % 2-21 area(s) 3 ity of gel 00:00: (three) [place] 00 times Medical daily. Branch gabapentin 2021- Yes [id number] 600mg Take 1 [facility] 600 mg 2-21 tablet by ity of tablet 00:00: mouth in [place] 00 the Medical morning Branch and 1 tablet at noon and 1 tablet in the evening. Diclofenac 2-1 Yes [id number] Apply to Univers Sodium 1 % 2-21 area(s) 3 ity of gel 00:00: (three) [place] 00 times Medical daily. Branch gabapentin 2021- Yes [id number] 600mg Take 1 [facility] 600 mg 2-21 tablet by ity of tablet 00:00: mouth in [place] 00 the Medical morning Branch and 1 tablet at noon and 1 tablet in the evening. Diclofenac 2021-11 Yes [id number] Apply to Univers Sodium 1 % 2-21 area(s) 3 ity of gel 00:00: (three) [place] 00 times Medical daily. Branch gabapentin 2021-11 Yes [id number] 600mg Take 1 [facility] 600 mg 2-21 tablet by ity of tablet 00:00: mouth in [place] 00 the Medical morning Branch and 1 tablet at noon and 1 tablet in the evening. Diclofenac 2021-11 Yes [id number] Apply to Univers Sodium 1 % 2-21 area(s) 3 ity of gel 00:00: (three) [place] 00 times Medical daily. Branch gabapentin 2021-11 Yes [id number] 600mg Take 1 [facility] 600 mg 2-21 tablet by ity of tablet 00:00: mouth in [place] [address] the Medical morning Branch and 1 tablet at noon and 1 tablet in the evening. Diclofenac 2021-11 Yes [id number] Apply to Univers Sodium 1 % 2-21 area(s) 3 ity of gel 00:00: (three) [place] 00 times Medical daily. Branch gabapentin 2021-11 Yes [id number] 600mg Take 1 [facility] 600 mg 2-21 tablet by ity of tablet 00:00: mouth in [place] 00 the Medical morning Branch and 1 tablet at noon and 1 tablet in the evening. Diclofenac 2021-11 Yes [id number] Apply to Univers Sodium 1 % 2-21 area(s) 3 ity of gel 00:00: (three) [place] 00 times Medical daily. Branch gabapentin 2021-11 Yes [id number] 600mg Take 1 [facility] 600 mg 2-21 tablet by ity of tablet 00:00: mouth in [place] 00 the Medical morning Branch and 1 tablet at noon and 1 tablet in the evening. Diclofenac 2021-11 Yes [id number] Apply to Univers Sodium 1 % 2-21 area(s) 3 ity of gel 00:00: (three) [place] 00 times Medical daily. Branch diclofenac 2021-11- No APPLY Unive rs sodium 2-21 04-03 TOPICALLY ity of (Voltaren) 00:00: 00:[place] THE [place] 1 % gel 00 :00 AFFECTED MD AREA THREE [facility]o TIMES n DAILY [facility] diclofenac 2021-11- No APPLY Unive rs sodium 12-22 04-03 TOPICALLY ity of (Voltaren) 00:00: 00:00 [place] THE [place] 1 % gel 00 :00 AFFECTED MD AREA THREE [place]o TIMES n DAILY [facility] diclofenac 2021-11- No APPLY Unive rs sodium 12-22 04-03 TOPICALLY ity of (Voltaren) 00:00: 00:[place] THE [place] 1 % gel 00 :00 AFFECTED MD AREA THREE [place]o TIMES n DAILY [facility] diclofenac 2021-11- No APPLY Unive rs sodium 12-22-03 TOPICALLY ity of (Voltaren) 00:00: 00:00 [place] THE [place] 1 % gel 00 :00 AFFECTED MD AREA THREE [place]o TIMES n DAILY [facility] diclofenac 2021-11- No APPLY Unive rs sodium 12-22-03 TOPICALLY ity of (Voltaren) 00:00: 00:00 [place] THE [place] 1 % gel 00 :00 AFFECTED MD AREA THREE Anderso TIMES n DAILY [facility] diclofenac 2021-11- No APPLY Unive rs sodium 12-22-03 TOPICALLY ity of (Voltaren) 00:00: 00:00 [place] THE [place] 1 % gel 00 :00 AFFECTED MD AREA THREE [place] TIMES n DAILY [facility] diclofenac 2021-11- No APPLY Unive rs sodium 12-22-03 TOPICALLY ity of (Voltaren) 00:00: 00:00 TO THE [place] 1 % gel 00 :00 AFFECTED MD AREA THREE [place]o TIMES n DAILY [facility] diclofenac 2021-11- No APPLY Unive rs sodium 12-22 04-03 TOPICALLY ity of (Voltaren) 00:00: 00:00 [place] THE [place] 1 % gel 00 :00 AFFECTED MD AREA THREE [place]o TIMES n DAILY [facility] gabapentin 2021-11- No TAKE 1 Univ ers (NEURONTIN) 12-2214 TABLET BY it y of 600 mg [...] PAIN OR [facility] PAIN HYDROcodone 2021-113- No 2745 1{tbl} Take 1 U nivers -acetaminop 12-22 tablet by it y of hen 7.5-325 00:00: 00:00 [place] mg per 00 :00 every 6 Medical tablet (six) Branch hours as needed for Pain. Indication s: chronic pain [facility] 2021-11 Yes every 8 Univ ers (XANAX) 2 2-20 (eight) ity of mg tablet 00:00: hours [place] 00 needed for [place] anxiety. [facility] 2021-11 Yes every 8 Univ ers (XANAX) 2 2-20 (eight) ity of mg tablet 00:00: hours [place] 00 needed for [place] anxiety. [facility] 2021-11 Yes every 8 Univ ers (XANAX) 2 2-20 (eight) ity of mg tablet 00:00: hours [place] 00 needed for [place] anxiety. [facility] 2021-11 Yes every 8 Univ ers (XANAX) 2 2-20 (eight) ity of mg tablet 00:00: hours [place] 00 needed for [place] anxiety. [facility] 2021-11 Yes every 8 Univ ers (XANAX) 2 2-20 (eight) ity of mg tablet 00:00: hours [place] 00 needed for [place] anxiety. [facility] 2021-11 Yes every 8 Univ ers (XANAX) 2 2-20 (eight) ity of mg tablet 00:00: hours as [place] 00 needed for [place] anxiety. [facility] 2021-11 Yes every 8 Univ ers (XANAX) 2 2-20 (eight) ity of mg tablet 00:00: hours [place] 00 needed for [place] anxiety. [facility] 2021-11 Yes every 8 Univ ers (XANAX) 2 2-20 (eight) ity of mg tablet 00:00: hours [place] 00 needed for MD anxiety. [facility] albuterol 2021-11 Yes every 6 Unive rs (VENTOLIN 2-19 (six) ity of HFA,PROAIR 00:00: hours as [place] HFA) 90 00 needed. mcg/puff Anderso inhaler n [facility] albuterol 2021-11 Yes every 6 Unive rs (VENTOLIN 2-19 (six) ity of HFA,PROAIR 00:00: hours as [place] HFA) 90 00 needed. mcg/puff Anderso inhaler n [facility] albuterol 2021-11 Yes every 6 Unive rs (VENTOLIN 2-19 (six) ity of HFA,PROAIR 00:00: hours as [place] HFA) 90 00 needed. mcg/puff Anderso inhaler n [facility] albuterol 2021-11 Yes every 6 Unive rs (VENTOLIN 2-19 (six) ity of HFA,PROAIR 00:00: hours as [place] HFA) 90 00 needed. mcg/puff Anderso inhaler n [facility] albuterol 2021-11 Yes every 6 Unive rs (VENTOLIN 2-19 (six) ity of HFA,PROAIR 00:00: hours as [place] HFA) 90 00 needed. mcg/puff Anderso inhaler n [facility] albuterol 2021-11 Yes every 6 Unive rs (VENTOLIN 2-19 (six) ity of HFA,PROAIR 00:00: hours as [place] HFA) 90 00 needed. mcg/puff Anderso inhaler n [facility] albuterol 2021-11 Yes every 6 Unive rs (VENTOLIN 2-19 (six) ity of HFA,PROAIR 00:00: hours as [place] HFA) 90 00 needed. mcg/puff Anderso inhaler n [facility] albuterol 2021-11 Yes every 6 Unive rs (VENTOLIN 2-19 (six) ity of HFA,PROAIR 00:00: hours as [place] HFA) 90 00 needed. mcg/puff Anderso inhaler n [facility] spironolact 2021-11- No TAKE 1 Uni vers one 12-20 02-14 TABLET BY ity of (ALDACTONE) 00:00: 00:[place] M[place]TH [place] 25 mg 00 :00 EVERY DAY MD tablet [facility] 2021-11- No TAKE 1 Uni vers one 12-20-14 TABLET BY ity of (ALDACTONE) 00:00: 00:[place] M[place]TH [place] 25 mg 00 :00 EVERY DAY MD tablet [facility] 2021-11- No TAKE 1 Uni vers one 12-2014 TABLET BY ity of (ALDACTONE) 00:00: 00:[place] M[place]TH [place] 25 mg 00 :00 EVERY DAY MD tablet [facility] 2021-11- No TAKE 1 Uni vers one 12-2014 TABLET BY ity of (ALDACTONE) 00:00: 00:[place] MOUTH [place] 25 mg 00 :00 EVERY DAY MD tablet [facility] 2021-11- No TAKE 1 Uni vers one 12-20 TABLET BY ity of (ALDACTONE) 00:00: 00:[place] MOUTH [place] 25 mg 00 :00 EVERY DAY MD tablet [facility] 2021-11- No TAKE 1 Uni vers one 12-20 TABLET BY ity of (ALDACTONE) 00:00: 00:[place] MOUTH [place] 25 mg 00 :00 EVERY DAY MD tablet [facility] 2021-11- No TAKE 1 Uni vers one 12-20-14 TABLET BY ity of (ALDACTONE) 00:00: 00:[place] M[place]TH [place] 25 mg 00 :00 EVERY DAY MD tablet [facility] 2021-11- No TAKE 1 Uni vers one 12-20-14 TABLET BY ity of (ALDACTONE) 00:00: 00:[place] M[place]TH [place] 25 mg 00 :00 EVERY DAY MD tablet [facility] zolpidem 2021-11 Yes TAKE 1 Univers (AMBIEN) 10 2-17 TABLET BY ity of mg tablet 00:00: [place]TH [place] 00 BEDTIME [place] NEEDED FOR [facility] zolpidem 2021-11 Yes TAKE 1 Univers (AMBIEN) 10 2-17 TABLET BY ity of mg tablet 00:00: [place]TH [place] 00 BEDTIME [place] NEEDED FOR [place] INSOMNIA n [facility] [place] zolpidem 2021-11 Yes TAKE 1 Univers (AMBIEN) 10 2-17 TABLET BY ity of mg tablet 00:00: [place] 00 BEDTIME [place] NEEDED FOR [place] INSOMNIA n [facility] zolpidem 2021-11 Yes TAKE 1 Univers (AMBIEN) 10 2-17 TABLET BY ity of mg tablet 00:00: [place]TH [place] 00 BEDTIME MD NEEDED FOR [place] INSOMNIA n [facility] [place] zolpidem 2021-11 Yes TAKE 1 Univers (AMBIEN) 10 2-17 TABLET BY ity of mg tablet 00:00: [place]TH [place] 00 BEDTIME MD NEEDED FOR [place] INSOMNIA n [facility] zolpidem 2021-11 Yes TAKE 1 Univers (AMBIEN) 10 2-17 TABLET BY ity of mg tablet 00:00: [place]TH [place] 00 BEDTIME MD NEEDED FOR [place] INSOMNIA n [facility] zolpide 2021-11 Yes TAKE 1 Univers (AMBIEN) 10 2-17 TABLET BY ity of mg tablet 00:00: [place]TH [place] 00 BEDTIME MD NEEDED FOR [place] INSOMNIA n [facility] zolpide 2021-11 Yes TAKE 1 Univers (AMBIEN) 10 2-17 TABLET BY ity of mg tablet 00:00: [place]TH [place] 00 BEDTIME MD NEEDED FOR [place] INSOMNIA [facility] ondansetron 2021-11 Yes DISSOLVE 1 Univers 4 [...] tablet 00:00: MOUTH [place] 00 EVERY DAY [facility] pantoprazol 2021-11 Yes TAKE 1 Univ ers e 2-13 TABLET BY ity of (PROTONIX) 00:00: MOUTH [place] 40 mg EC 00 DAILY tablet [facility] amLODIPine 2021-11 Yes TAKE 1 Unive rs (NORVASC) 5 2-13 TABLET BY ity of mg tablet 00:00: MOUTH [place] 00 EVERY DAY [facility] pantoprazol 2021-11 Yes TAKE 1 Univ ers e 2-13 TABLET BY ity of (PROTONIX) 00:00: MOUTH [place] 40 mg EC 00 DAILY tablet [facility] amLODIPine 2021-11 Yes TAKE 1 Unive rs (NORVASC) 5 2-13 TABLET BY ity of mg tablet 00:00: MOUTH [place] 00 EVERY DAY [facility] pantoprazol 2021-11 Yes TAKE 1 Univ ers e 2-13 TABLET BY ity of (PROTONIX) 00:00: MOUTH [place] 40 mg EC 00 DAILY tablet [facility] amLODIPine 2021-11 Yes TAKE 1 Unive rs (NORVASC) 5 2-13 TABLET BY ity of mg tablet 00:00: MOUTH [place] 00 EVERY DAY [facility] pantoprazol 2021-11 Yes TAKE 1 Univ ers e 2-13 TABLET BY ity of (PROTONIX) 00:00: MOUTH [place] 40 mg EC 00 DAILY tablet [facility] amLODIPine 2021-11 Yes TAKE 1 Unive rs (NORVASC) 5 2-13 TABLET BY ity of mg tablet 00:00: MOUTH [place] 00 EVERY DAY [facility] pantoprazol 2021-11 Yes TAKE 1 Univ ers e 2-13 TABLET BY ity of (PROTONIX) 00:00: MOUTH [place] 40 mg EC 00 DAILY tablet [facility] amLODIPine 2021-11 Yes TAKE 1 Unive rs (NORVASC) 5 2-13 TABLET BY ity of mg tablet 00:00: MOUTH [place] 00 EVERY DAY [facility] pantoprazol 2021-11 Yes TAKE 1 Univ ers e 2-13 TABLET BY ity of (PROTONIX) 00:00: MOUTH [place] 40 mg EC 00 DAILY tablet [facility] amLODIPine 2021-11 Yes TAKE 1 Unive rs (NORVASC) 5 2-13 TABLET BY ity of mg tablet 00:00: MOUTH [place] 00 EVERY DAY [facility] pantoprazol 2021-11 Yes TAKE 1 Univ ers e 2-13 TABLET BY ity of (PROTONIX) 00:00: MOUTH [place] 40 mg EC 00 DAILY tablet [facility] amLODIPine 2021-11 Yes TAKE 1 Unive rs (NORVASC) 5 2-13 TABLET BY ity of mg tablet 00:00: MOUTH [place] 00 EVERY DAY [facility] pantoprazol 2021-11 Yes TAKE 1 Univ ers e 2-13 TABLET BY ity of (PROTONIX) 00:00: MOUTH [place] 40 mg EC 00 DAILY tablet [facility] dicyclomine 2021-11- No TAKE 1 Uni vers (BENTYL) 10 2-12 03-20 CAPSULE BY i ty of mg capsule 00:00: 00:00 MOUTH [place] 00 :00 EVERY 8 MD HOURS [facility] dicyclomine 2021-11- No TAKE 1 Uni vers (BENTYL) 10 12-13-20 CAPSULE BY i ty of mg capsule 00:00: 00:00 MOUTH [place] 00 :00 EVERY 8 MD HOURS [facility] dicyclomine 2021-11- No TAKE 1 Uni vers (BENTYL) 10 12-13-20 CAPSULE BY i ty of mg capsule 00:00: 00:00 MOUTH [place] 00 :00 EVERY 8 MD HOURS [facility] dicyclomine 2021-11- No TAKE 1 Uni vers (BENTYL) 10 12-13-20 CAPSULE BY i ty of mg capsule 00:00: 00:00 MOUTH [place] 00 :00 EVERY 8 MD HOURS [facility] dicyclomine 2021-11- No TAKE 1 Uni vers (BENTYL) 10 12-13-20 CAPSULE BY i ty of mg capsule 00:00: 00:00 MOUTH [place] 00 :00 EVERY 8 MD HOURS [facility] dicyclomine 2021-11- No TAKE 1 Uni vers (BENTYL) 10 12-13-20 CAPSULE BY i ty of mg capsule 00:00: 00:00 MOUTH [place] 00 :00 EVERY 8 MD HOURS [facility] dicyclomine 2021-11- No TAKE 1 Uni vers (BENTYL) 10 12-13-20 CAPSULE BY i ty of mg capsule 00:00: 00:00 MOUTH [place] 00 :00 EVERY 8 MD HOURS [facility] dicyclomine 2021-11- No TAKE 1 Uni vers (BENTYL) 10 12-13-20 CAPSULE BY i ty of mg capsule 00:00: 00:00 MOUTH [place] 00 :00 EVERY 8 MD HOURS [facility] BD DEVORAH 2021-11 Yes 10mg Take [...] 32 00:00: [place] gauge x 00 Medical [facility]" [facility] [facility] BD DEVORAH 2021-11 Yes 10mg Take 10 mg Univers GEN PEN 2-05 by mouth. ity of NEEDLE 32 00:00: [place] gauge x 00 Medical " [place] [facility] BD DEVORAH 2021-11 Yes 10mg Take 10 mg Univers GEN PEN 2-05 by mouth. ity of NEEDLE 32 00:00: [place] gauge x 00 Medical [facility]" [place] [facility] BD DEVORAH 2021-11 Yes 10mg Take 10 mg Univers GEN PEN 2-05 by mouth. ity of NEEDLE 32 00:00: [place] gauge x 00 Medical " [place] [facility] BD DEVORAH 2021-11 Yes 10mg Take 10 mg Univers GEN PEN 2-05 by mouth. ity of NEEDLE 32 00:00: [place] gauge x 00 [facility] BD Devorah 2021-11- No USE Uni vers Gen Pen 2-05 02-14 DIRECTED. ity of Needle 32 00:00: 00:00 [place] gauge x 00 :[address] [place] [address] BD Devorah 2021-11- No USE Uni vers Gen Pen 2-05 02-14 DIRECTED. ity of Needle 32 00:00: 00:00 [place] gauge x 00 :[address] [place] [address] BD [place] 2021-11- No USE Uni vers Gen Pen 2-05 02-14 DIRECTED. ity of Needle 32 00:00: 00:00 [place] gauge x 00 :[address] [place] [address] BD [place]or[place] 2021-11- No USE Uni vers Gen Pen 2-05 02-14 DIRECTED. ity of Needle 32 00:00: 00:00 [place] gauge x 00 :[address] [place] [address] BD Devorah 2021-11- No USE Uni vers Gen Pen 12-06 DIRECTED. ity of Needle 32 00:00: 00:00 [place] gauge x 00 :00 MD Mg/Paz" [facility] BD Devorah 2021-11- No USE Uni vers Gen Pen 12-06 DIRECTED. ity of Needle 32 00:00: 00:00 [place] gauge x 00 :00 MD Mg/Paz" [facility] BD Devorah 2021-11- No USE Uni vers Gen Pen 12-06 DIRECTED. ity of Needle 32 00:00: 00:00 [place] gauge x 00 :00 MD Mg/Paz" [facility] Devorah 2021-11- No USE Uni vers Gen Pen 12-06 DIRECTED. ity of Needle 32 00:00: 00:00 [place] gauge x 00 :00 MD Solorio" [facility] LISINOPRIL 2021-11 Yes [id number] TAKE 1/2 Univers 40 mg 2-02 TABLET BY ity of tablet 00:00: MOUTH [place] 00 TWICE Medical DAILY Branch LISINOPRIL 2021-11 Yes [id number] TAKE 1/2 Univers 40 mg 2-02 TABLET BY ity of tablet 00:00: MOUTH [place] 00 TWICE Medical DAILY Branch LISINOPRIL 2021-11 Yes [id number] TAKE 1/2 Univers 40 mg 2-02 TABLET BY ity of tablet 00:00: MOUTH [place] 00 TWICE Medical DAILY Branch LISINOPRIL 2021-11 Yes [id number] TAKE 1/2 Univers 40 mg 2-02 TABLET BY ity of tablet 00:00: MOUTH [place] 00 TWICE Medical DAILY Branch LISINOPRIL 2021-11 Yes [id number] TAKE 1/2 [facility] 40 mg 2-02 TABLET BY ity of tablet 00:00: MOUTH [place] 00 TWICE Medical DAILY Branch LISINOPRIL 2021-11- No [id number] TAKE 1/2 Univers 40 mg 2-02 - TABLET BY ity of tablet 00:00: 00:00 MOUTH [place] 00 :00 TWICE Medical DAILY Branch hydrALAZINE 2021-11- No TAKE 1 Uni vers (APRESOLINE -12-15 TABLET BY it y of ) 100 mg 00:00: 00:00 MOUTH [place] tablet 00 :00 THREE MD TIMES Anderso DAILY n [facility] Victoza 2021-11- No ADMINISTER Uni vers 2-Patrick 0.6 12-02 1.8 MG ity of mg/0.1 mL 00:00: 00:00 [place] ([place] mg/3 00 :00 SKIN EVERY MD mL) pnij DAY Anderso injection [facility] lisinopril 2021-11- No TAKE 1/2 Un ally (PRINIVIL,Z 12-02 TABLET BY it y of ESTRIL) 40 00:00: 00:00 MOUTH [place] mg tablet 00 :00 TWICE MD DAILY [facility] insulin 2021-11- No USE TWICE Univ ers syringe-nee 12-02 DAILY WITH i ty of dle U-100 1 00:00: 00:00 MEALS. [place] as mL 31 gauge 00 :00 x 03/16 adrienne [facility] hydrALAZINE 2021-11- No TAKE 1 Uni vers (APRESOLINE 12-02 TABLET BY it y of ) 100 mg 00:00: 00:00 MOUTH [place] tablet 00 :00 THREE MD TIMES Andevelin DAILY [facility] Victoza 2021-11- No ADMINISTER Uni vers 2-Patrick 0.6 12-02 1.8 MG ity of mg/0.1 mL 00:00: 00:00 [place] ([place] mg/3 00 :00 SKIN EVERY MD mL) pnij DAY [facility] injection [facility] lisinopril 2021-11- No TAKE 1/2 Un ally (PRINIVIL,Z 12-02 TABLET BY it y of ESTRIL) 40 00:00: 00:00 MOUTH [place] mg tablet 00 :00 TWICE MD DAILY [facility] insulin 2021-11- No USE TWICE Univ ers syringe-nee 12-02 DAILY WITH i ty of dle U-100 1 00:00: 00:00 MEALS. [place] mL 31 gauge 00 :00 MD blake 5/16 [facility] No TAKE 1 Uni vers (APRESOLINE 12-02 TABLET BY it y of ) 100 mg 00:00: 00:00 MOUTH [place] tablet 00 :00 THREE MD TIMES Anderso DAILY [facility] Victoza 2021-11- No ADMINISTER Uni vers 2-Patrick 0.6 12-02 1.8 MG ity of mg/0.1 mL 00:00: 00:00 [place] ([place] mg/3 00 :00 SKIN EVERY MD mL) [facility]nij [facility] lisinopril 2021-11- No TAKE 1/2 Un ally (PRINIVIL,Z 12-02 TABLET BY it y of ESTRIL) 40 00:00: 00:00 MOUTH [place] mg tablet 00 :00 [facility]ICE [facility] 2021-11- No USE TWICE Univ ers syringe-nee 12-02 DAILY WITH i ty of dle U-100 1 00:00: 00:00 MEALS. [place] mL 31 gauge 00 :00 x 03/16 stevieg [facility] hydrALAZINE 2021-11- No TAKE 1 Uni vers (APRESOLINE 12-02 TABLET BY it y of ) 100 mg 00:00: 00:00 MOUTH [place] tablet 00 :00 THREE MD TIMES Anderso DAILY [facility] Victoza 2021-11- No ADMINISTER Uni vers 2-Patrick 0.6 12-02 1.8 MG ity of mg/0.1 mL 00:00: 00:00 [place] ([place] mg/3 00 :00 SKIN EVERY MD mL) pnij DAY [facility] injection [facility] lisinopril 2021-11- No TAKE 1/2 Un ally (PRINIVIL,Z 12-02 TABLET BY it y of ESTRIL) 40 00:00: 00:00 MOUTH [place] mg tablet 00 :00 [facility]- No USE TWICE Univ ers syringe-nee 12-02 DAILY WITH i ty of dle U-100 1 00:00: 00:00 MEALS. [place] mL 31 gauge 00 :00 x 5/16 syrg [facility] hydrALAZINE 2021-11- No TAKE 1 Uni vers (APRESOLINE 12-02 TABLET BY it y of ) 100 mg 00:00: 00:00 MOUTH [place] tablet 00 :00 THREE MD TIMES Anderso DAILY n [facility] Victoza 2021-11- No ADMINISTER Uni vers 2-Patrick 0.6 12-02 1.8 MG ity of mg/0.1 mL 00:00: 00:00 [place] ([place] mg/3 00 :00 SKIN EVERY MD mL) pnij DAY Anderso injection [facility] lisinopril 2021-11- No TAKE 1/2 Un ally (PRINIVIL,Z 12-02 TABLET BY it y of ESTRIL) 40 00:00: 00:00 MOUTH [place] mg tablet 00 :00 TWICE [facility] insulin 2021-11- No USE TWICE Univ ers syringe-nee 12-02 DAILY WITH i ty of dle U-100 1 00:00: 00:00 MEALS. [place] mL 31 gauge 00 :00 MD x 03/16 stevieg [facility] hydrALAZINE 2021-11- No TAKE 1 Uni vers (APRESOLINE 12-02 TABLET BY it y of ) 100 mg 00:00: 00:00 MOUTH [place] tablet 00 :00 THREE MD TIMES Anderso DAILY [facility] Victoza 2021-11- No ADMINISTER Uni vers 2-Patrick 0.6 12-02 1.8 MG ity of mg/0.1 mL 00:00: 00:00 [place] ([place] mg/3 00 :00 SKIN EVERY MD mL) pnij DAY Anderso injection [facility] lisinopril 2021-11- No TAKE 1/2 Un ally (PRINIVIL,Z 12-02 TABLET BY it y of ESTRIL) 40 00:00: 00:00 MOUTH [place] mg tablet 00 :00 TWICE [facility]ILY [facility] insulin 2021-11- No USE TWICE Univ ers syringe-nee 12-02 DAILY WITH i ty of dle U-100 1 00:00: 00:00 MEALS. [place] mL 31 gauge 00 :00 MD x 516 stevieg [facility] hydrALAZINE 2021-11- No TAKE 1 Uni vers (APRESOLINE 12-02 TABLET BY it y of ) 100 mg 00:00: 00:00 MOUTH [place] tablet 00 :00 THREE MD TIMES Anderso DAILY n [facility] Victoza 2021-11- No ADMINISTER Uni vers 2-Patrick 0.6 12-02 1.8 MG ity of mg/0.1 mL 00:00: 00:00 [place] ([place] mg/3 00 :00 SKIN EVERY MD mL) pnij DAY Anderso injection [facility] lisinopril 2021-11- No TAKE 1/2 Un ally (PRINIVIL,Z 12-02 TABLET BY it y of ESTRIL) 40 00:00: 00:00 MOUTH [place] mg tablet 00 :00 TWICE [facility]ILY [facility] insulin 2021-11- No USE TWICE Univ ers syringe-nee 12-02 DAILY WITH i ty of dle U-100 1 00:00: 00:00 MEALS. [place] mL 31 gauge 00 :00 MD x 16 stevieg [facility] hydrALAZINE 2021-11- No TAKE 1 Uni vers (APRESOLINE 12-02 TABLET BY it y of ) 100 mg 00:00: 00:00 MOUTH [place] tablet 00 :00 THREE MD TIMES Anderso DAILY [facility] Victoza 2021-11- No ADMINISTER Uni vers 2-Patrick 0.6 12-02 1.8 MG ity of mg/0.1 mL 00:00: 00:00 [place] ([place] mg/3 00 :00 SKIN EVERY MD mL) pnij DAY Anderso injection [facility] lisinopril 2021-11- No TAKE 1/2 Un ally (PRINIVIL,Z 12-02 TABLET BY it y of ESTRIL) 40 00:00: 00:00 MOUTH [place] mg tablet 00 :00 [facility] No USE TWICE Univ ers syringe-nee 12-02 DAILY WITH i ty of dle U-100 1 00:00: 00:00 MEALS. [place] mL 31 gauge 00 :00 MD blake 03/16 adrienne [facility] allopurinol 2021-11- No 100mg Take 100 [...] Indication s: chronic pain metFORMIN 2021-11 Yes [id number] 1000mg Take 1 Univers 1,000 mg 1-21 [...] Indication s: chronic pain metFORMIN 2021-11 Yes [id number] 1000mg Take 1 Univers 1,000 mg 1-21 [...] Indication s: chronic pain metFORMIN 2021-11 Yes [id number] 1000mg Take 1 Univers 1,000 mg 1-21 tablet by ity of tablet 00:00: mouth in [place] [address] the [facility] morning [place] and 1 tablet in the evening. Take with meals. HYDROcodone 2021-11 Yes [id number] 1{tbl} Take 1 Un ally -acetaminop 1-21 tablet by ity of hen 7.5-325 00:00: mouth [place] mg per 00 every 6 Medical tablet (six) Branch hours as needed for Pain. Indication s: chronic pain metFORMIN 2021-11 Yes [id number] 1000mg Take 1 Univers 1,000 mg 1-21 tablet by ity of tablet 00:00: mouth in [place] [address] the [facility] morning [place] and 1 tablet in the evening. Take with meals. metFORMIN 2021-11 Yes [id number] 1000mg Take 1 Univers 1,000 mg 1-21 tablet by ity of tablet 00:00: mouth in [address] morning [place] and 1 tablet in the evening. Take with meals. neomycin-po 2021-11 Yes INSTILL 4 U nivers lymyxin-hyd 1-21 DROPS TO ity of rocortisone 00:00: [place]FF[place] otic 00 EAR FOUR Medical solution TIMES Branch DAILY metFORMIN 2021-11 Yes [id number] 1000mg Take 1 Univers 1,000 mg 1-21 tablet by ity of tablet 00:00: mouth in [address] and 1 tablet in the evening. Take with meals. neomycin-po 2021-11 Yes INSTILL 4 U nivers lymyxin-hyd 1-21 DROPS TO ity of rocortisone 00:00: [place] otic 00 EAR FOUR Medical solution TIMES Branch DAILY metFORMIN 2021-11 Yes [id number] 1000mg Take 1 Univers 1,000 mg 1-21 tablet by ity of tablet 00:00: mouth in [address] morning [place] and 1 tablet in the evening. Take with meals. neomycin-po 2021-11 Yes INSTILL 4 U nivers lymyxin-hyd 1-21 DROPS TO ity of rocortisone 00:00: AFFECTED [place] [facility] 00 EAR FOUR Medical solution TIMES Branch DAILY metFORMIN 2021-11 Yes [id number] 1000mg Take 1 [facility] 1,000 mg 1-21 tablet by ity of tablet 00:00: mouth in [address] morning [place] and 1 tablet in the evening. Take with meals. neomycin-po 2021-11 Yes INSTILL 4 U nivers lymyxin-hyd 1-21 DROPS TO ity of rocortisone 00:00: [place]ED [place] [facility] 00 EAR FOUR Medical solution TIMES Branch DAILY metFORMIN 2021-11 Yes [id number] 1000mg Take 1 [facility] 1,000 mg 1-21 tablet by ity of tablet 00:00: mouth in [address] morning [place] and 1 tablet in the evening. Take with meals. neomycin-po 2021-11 Yes INSTILL 4 U nivers lymyxin-hyd 1-21 DROPS TO ity of rocortisone 00:00: [place]ED [place] [facility] 00 EAR FOUR Medical solution TIMES Branch DAILY metFORMIN 2021-11 Yes [id number] 1000mg Take 1 [facility] 1,000 mg 1-21 tablet by ity of tablet 00:00: mouth in [address] and 1 tablet in the evening. Take with meals. neomycin-po 2021-11 Yes INSTILL 4 U nivers lymyxin-hyd 1-21 DROPS TO ity of rocortisone 00:00: [place]ED [place] [facility] 00 EAR FOUR Medical solution TIMES Branch DAILY metFORMIN 2021-11 Yes [id number] 1000mg Take 1 [facility] 1,000 mg 1-21 tablet by ity of tablet 00:00: mouth in [address] and 1 tablet in the evening. Take with meals. neomycin-po 2021-11 Yes INSTILL 4 U nivers lymyxin-hyd 1-21 DROPS TO ity of rocortisone 00:00: [place]ED [place] [facility] 00 EAR FOUR Medical solution TIMES Branch DAILY metFORMIN 2021-11 Yes [id number] 1000mg Take 1 [facility] 1,000 mg 1-21 tablet by ity of tablet 00:00: mouth in [address] and 1 tablet in the evening. Take with meals. neomycin-po 2021-11 Yes INSTILL 4 U nivers lymyxin-hyd 1-21 DROPS TO ity of rocortisone 00:00: [place]ECTED [place] [facility] 00 EAR FOUR Medical solution TIMES Branch DAILY metFORMIN 2021-11 Yes [id number] 1000mg Take 1 [facility] 1,000 mg 1-21 tablet by ity of tablet 00:00: mouth in [address] morning [place] and 1 tablet in the evening. Take with meals. neomycin-po 2021-11 Yes INSTILL 4 U nivers lymyxin-hyd 1-21 DROPS TO ity of rocortisone 00:00: [place]ED [place] [facility] 00 EAR FOUR Medical solution TIMES Branch DAILY metFORMIN 2021-11 Yes [id number] 1000mg Take 1 [facility] 1,000 mg 1-21 tablet by ity of tablet 00:00: mouth in [address] morning [place] and 1 tablet in the evening. Take with meals. neomycin-po 2021-11 Yes INSTILL 4 [facility] nivers lymyxin-hyd 1-21 DROPS TO ity of rocortisone 00:00: [place]ED [place] [facility] 00 EAR FOUR Medical solution TIMES Branch DAILY metFORMIN 2021-11 Yes [id number] 1000mg Take 1 [facility] 1,000 mg 1-21 tablet by ity of tablet 00:00: mouth in [address] and 1 tablet in the evening. Take with meals. neomycin-po 2021-11 Yes INSTILL 4 U nivers lymyxin-hyd 1-21 DROPS TO ity of rocortisone 00:00: [place] EAR FOUR Medical solution TIMES Branch DAILY metFORMIN 2021-11 Yes [id number] 1000mg Take 1 [facility] 1,000 mg 1-21 tablet by ity of tablet 00:00: mouth in [address] and 1 tablet in the evening. Take with meals. neomycin-po 2021-11 Yes INSTILL 4 U nivers lymyxin-hyd 1-21 DROPS TO ity of rocortisone 00:00: [place]ED [place] [facility] 00 EAR FOUR Medical solution TIMES Branch DAILY metFORMIN 2021-11 Yes [id number] 1000mg Take 1 [facility] 1,000 mg 1-21 tablet by ity of tablet 00:00: mouth in [address] and 1 tablet in the evening. Take with meals. neomycin-po 2021-11 Yes INSTILL 4 U nivers lymyxin-hyd 1-21 DROPS TO ity of rocortisone 00:00: [place]ECTED [place] [facility] 00 EAR FOUR Medical solution TIMES Branch DAILY metFORMIN 2021-11 Yes [id number] 1000mg Take 1 [facility] 1,000 mg 1-21 tablet by ity of tablet 00:00: mouth in [address] morning [place] and 1 tablet in the evening. Take with meals. neomycin-po 2021-11 Yes INSTILL 4 U nivers lymyxin-hyd 1-21 DROPS TO ity of rocortisone 00:00: [place]ECTED [place] [facility] 00 EAR FOUR Medical solution TIMES Branch DAILY metFORMIN 2021-11 Yes [id number] 1000mg Take 1 [facility] 1,000 mg 1-21 tablet by ity of tablet 00:00: mouth in [address] morning [place] and 1 tablet in the evening. Take with meals. neomycin-po 2021-11 Yes INSTILL 4 U nivers lymyxin-hyd 1-21 DROPS TO ity of rocortisone 00:00: [place]ECTED [place] [facility] 00 EAR FOUR Medical solution TIMES Branch DAILY metFORMIN 2021-11 Yes [id number] 1000mg Take 1 [facility] 1,000 mg 1-21 tablet by ity of tablet 00:00: mouth in [address] morning [place] and 1 tablet in the evening. Take with meals. neomycin-po 2021-11 Yes INSTILL 4 U nivers lymyxin-hyd 1-21 DROPS TO ity of rocortisone 00:00: [place]FFECTED [place] [facility] 00 EAR FOUR Medical solution TIMES Branch DAILY metFORMIN 2021-11 Yes [id number] 1000mg Take 1 [facility] 1,000 mg 1-21 tablet by ity of tablet 00:00: mouth in [address] and 1 tablet in the evening. Take with meals. neomycin-po 2021-11 Yes INSTILL 4 U nivers lymyxin-hyd 1-21 DROPS TO ity of rocortisone 00:00: [place]ECTED [place] [facility] 00 EAR FOUR Medical solution TIMES Branch DAILY metFORMIN 2021-11 Yes [id number] 1000mg Take 1 [facility] 1,000 mg 1-21 tablet by ity of tablet 00:00: mouth in [address] morning [place] and 1 tablet in the evening. Take with meals. neomycin-po 2021-11 Yes INSTILL 4 U nivers lymyxin-hyd 1-21 DROPS TO ity of rocortisone 00:00: [place]ECTED [place] [facility] 00 EAR FOUR Medical solution TIMES Branch DAILY metFORMIN 2021-11 Yes [id number] 1000mg Take 1 [facility] 1,000 mg 1-21 tablet by ity of tablet 00:00: mouth in [place] 00 the Medical morning Branch and 1 tablet in the evening. Take with meals. neomycin-po 2021-11 Yes INSTILL 4 U nivers lymyxin-hyd 1-21 DROPS TO ity of rocortisone 00:00: [place]FFECTED [place] [facility] 00 EAR FOUR Medical solution TIMES Branch DAILY metFORMIN 2021-11 Yes [id number] 1000mg Take 1 [facility] 1,000 mg 1-21 tablet by ity of tablet 00:00: mouth in [place] 00 the Medical morning Branch and 1 tablet in the evening. Take with meals. neomycin-po 2021-11 Yes INSTILL 4 U nivers lymyxin-hyd 1-21 DROPS TO ity of rocortisone 00:00: [place]FFECTED [place] [facility] 00 EAR FOUR Medical solution TIMES Branch DAILY metFORMIN 2021-11 Yes [id number] 1000mg Take 1 [facility] 1,000 mg 1-21 tablet by ity of tablet 00:00: mouth in [place] 00 the Medical morning Branch and 1 [...] tablet 00 :00 DAILY MD Liane olivier [facility] colchicine 2021-11- No TAKE 1 Univ ers (COLCRYS) 11-21-20 TABLET BY ity of 0.6 mg 00:00: 00:00 MOUTH [place] tablet 00 :00 DAILY MD Liane olivier [facility] colchicine 2021-11- No TAKE 1 Univ ers (COLCRYS) 11-21-20 TABLET BY ity of 0.6 mg 00:00: 00:00 MOUTH [place] tablet 00 :00 DAILY MD Liane olivier [facility] colchicine 2021-11- No TAKE 1 Univ ers (COLCRYS) 11-21-20 TABLET BY ity of 0.6 mg 00:00: 00:00 MOUTH [place] tablet 00 :00 DAILY MD Liane olivier [facility] colchicine 2021-11- No TAKE 1 Univ ers (COLCRYS) 11-21-20 TABLET BY ity of 0.6 mg 00:00: 00:00 MOUTH [place] tablet 00 :00 DAILY MD Liane [facility] colchicine 2021-11- No TAKE 1 Univ ers (COLCRYS) 11-21-20 TABLET BY ity of 0.6 mg 00:00: 00:00 MOUTH [place] tablet 00 :00 DAILY MD [facility] colchicine 2021-11- No TAKE 1 Univ ers (COLCRYS) 11-21-20 TABLET BY ity of 0.6 mg 00:00: 00:00 MOUTH [place] tablet 00 :00 DAILY MD [facility] colchicine 2021-11- No TAKE 1 Univ ers (COLCRYS) 11-21-20 TABLET BY ity of 0.6 mg 00:00: 00:00 MOUTH [place] tablet 00 :00 DAILY MD [facility] metFORMIN 2021-11- No TAKE 1 Unive rs (GLUCOPHAGE 11-21 TABLET BY it y of ) 1000 mg 00:00: 00:00 MOUTH IN [place] tablet 00 :00 THE MORNING [place] AND IN THE n EVENING Cancer WITH MEALS Center metFORMIN 2021-11- No TAKE 1 Unive rs (GLUCOPHAGE 11-2114 TABLET BY it y of ) 1000 mg 00:00: 00:00 MOUTH IN [place] tablet 00 :00 THE MORNING [place] AND IN THE n EVENING Cancer WITH MEALS Center metFORMIN 2021-11- No TAKE 1 Unive rs (GLUCOPHAGE 11-21 TABLET BY it y of ) 1000 mg 00:00: 00:00 MOUTH IN [place] tablet 00 :00 THE MORNING [place] AND IN THE n EVENING Cancer WITH MEALS Center metFORMIN 2021-11- No TAKE 1 Unive rs (GLUCOPHAGE 11-21-14 TABLET BY it y of ) 1000 mg 00:00: 00:00 MOUTH IN [place] tablet 00 :00 THE MORNING [place] AND IN THE n EVENING Cancer WITH MEALS Center metFORMIN 2021-11- No TAKE 1 Unive rs (GLUCOPHAGE 11-21-14 TABLET BY it y of ) 1000 mg 00:00: 00:00 MOUTH IN [place] tablet 00 :00 THE MORNING [place] AND IN THE n EVENING Cancer WITH MEALS Center metFORMIN 2021-11- No TAKE 1 Unive rs (GLUCOPHAGE 1-21 02-14 TABLET BY it y of ) 1000 mg 00:00: 00:00 MOUTH IN [place] tablet 00 :00 THE MORNING Liane AND IN THE n EVENING Cancer WITH MEALS Center metFORMIN 2021-11- No TAKE 1 Unive rs (GLUCOPHAGE 1-21 02-14 TABLET BY it y of ) 1000 mg 00:00: 00:00 MOUTH IN [place] tablet 00 :00 THE MORNING Liane AND IN THE n EVENING Cancer WITH MEALS Center metFORMIN 2021-11- No TAKE 1 Unive rs (GLUCOPHAGE 1-21 -14 TABLET BY it y of ) 1000 [...] needed for Pain. Indication s: chronic pain [place] 2021-11 Yes INHALE 1 Univer s [place] 1-18 PUFF BY ity of 100-62.5-25 00:00: MOUTH [place] mcg dsdv 00 EVERY DAY MD Liane olivier [facility] 2021-11 Yes INHALE 1 Univer s [place] 1-18 PUFF BY ity of 100-62.5-25 00:00: MOUTH [place] mcg dsdv 00 EVERY DAY MD Liane olivier [facility] [place] 2021-11 Yes INHALE 1 Univer s [place] 1-18 PUFF BY ity of 100-62.5-25 00:00: MOUTH [place] mcg dsdv 00 EVERY DAY MD Liane olivier [facility] 2021-11 Yes INHALE 1 Univer s [place] 1-18 PUFF BY ity of 100-62.5-25 00:00: MOUTH [place] mcg dsdv 00 EVERY DAY MD Liane olivier [facility] 2021-11 Yes INHALE 1 Univer s [place] 1-18 PUFF BY ity of 100-62.5-25 00:00: MOUTH [place] mcg dsdv 00 [facility] DAY [facility] [place] 2021-11 Yes INHALE 1 Univer s [place] 1-18 PUFF BY ity of 100-62.5-25 00:00: MOUTH [place] mcg dsdv 00 EVERY DAY [facility] [place] [facility] 2021-11 Yes INHALE 1 Univer s [place] 1-18 PUFF BY ity of 100-62.5-25 00:00: MOUTH [place] mcg dsdv 00 EVERY DAY [facility] [place] [facility] 2021-11 Yes INHALE 1 Univer s [place] 1-18 PUFF BY ity of 100-62.5-25 00:00: MOUTH [place] mcg dsdv 00 [facility] No PLACE 1 Un ally in 11-18 03-14 TABLET ity of (NITROSTAT) 00:00: 00:00 UNDER THE [place] 0.4 mg SL 00 :00 TONGUE MD tablet EVERY 5 [place] MINUTES n FOR CHEST Cancer PAIN. [place] nitroglycer 2021-11- No PLACE 1 Un ally in 11-18 03-14 TABLET ity of (NITROSTAT) 00:00: 00:00 UNDER THE [place] 0.4 mg SL 00 :00 TONGUE MD tablet EVERY 5 [place] MINUTES n FOR CHEST Cancer PAIN. [place] nitroglycer 2021-11- No PLACE 1 Un ally in 11-18 03-14 TABLET ity of (NITROSTAT) 00:00: 00:00 UNDER THE [place] 0.4 mg SL 00 :00 TONGUE MD tablet EVERY 5 [place] MINUTES n FOR CHEST Cancer PAIN. [place] nitroglycer 2021-11- No PLACE 1 Un ally in 11-18 03-14 TABLET ity of (NITROSTAT) 00:00: 00:00 UNDER THE [place] 0.4 mg SL 00 :00 TONGUE MD tablet EVERY 5 [place] MINUTES n FOR CHEST Cancer PAIN. [place] nitroglycer 2021-11- No PLACE 1 Un ally in 11-18 TABLET ity of (NITROSTAT) 00:00: 00:00 UNDER THE [place] 0.4 mg SL 00 :00 TONGUE MD tablet EVERY 5 [place] MINUTES n FOR CHEST Cancer PAIN. [place] nitroglycer 2021-11- No PLACE 1 Un ally in 11-18 TABLET ity of (NITROSTAT) 00:00: 00:00 UNDER THE [place] 0.4 mg SL 00 :00 TONGUE MD tablet EVERY 5 [place] MINUTES n FOR CHEST Cancer PAIN. [place] nitroglycer 2021-11- No PLACE 1 Un ally in 11-18 TABLET ity of (NITROSTAT) 00:00: 00:00 UNDER THE [place] 0.4 mg SL 00 :00 TONGUE MD tablet EVERY 5 [place] MINUTES n FOR CHEST Cancer PAIN. [place] nitroglycer 2021-11- No PLACE 1 Un ally in 11-18 TABLET ity of (NITROSTAT) 00:00: 00:00 UNDER THE [place] 0.4 mg SL 00 :00 TONGUE MD tablet EVERY 5 [place] MINUTES n FOR CHEST Cancer PAIN. [place] GABAPENTIN 2021-11 Yes [id number] TAKE 1 [facility] 600 mg 1-17 TABLET BY ity of tablet 00:00: MOUTH THREE Medical TIMES Branch DAILY GABAPENTIN 2021-11 Yes [id number] TAKE 1 [facility] 600 mg 1-17 TABLET BY ity of tablet 00:00: MOUTH THREE Medical TIMES Branch DAILY GABAPENTIN 2021- Yes [id number] TAKE 1 [facility] 600 mg 1-17 TABLET BY ity of tablet 00:00: MOUTH [place] 00 THREE Medical TIMES Branch DAILY GABAPENTIN 2021- Yes [id number] TAKE 1 [facility] 600 mg 1-17 TABLET BY ity of tablet 00:00: MOUTH THREE Medical TIMES Branch DAILY GABAPENTIN 2021- Yes [id number] TAKE 1 [facility] 600 mg 1-17 TABLET BY ity of tablet 00:00: MOUTH THREE Medical TIMES Branch DAILY GABAPENTIN 2021- Yes [id number] TAKE 1 [facility] 600 mg 1-17 TABLET BY ity of tablet 00:00: MOUTH THREE Medical TIMES Branch DAILY GABAPENTIN 2021-11- No [id number] TAKE 1 [facility] 600 mg 1-17 12-21 TABLET BY ity of tablet 00:00: 00:00 MOUTH [place] 00 :00 THREE Medical TIMES Branch DAILY GABAPENTIN 2021-11- No [id number] TAKE 1 [facility] 600 mg 1-17 12-21 TABLET BY ity of tablet 00:00: 00:00 MOUTH [place] 00 :00 THREE Medical TIMES Branch DAILY atorvastati 2021-11 Yes TAKE 1 Univ ers n (LIPITOR) 1-12 TABLET BY ity of 20 mg 00:00: MOUTH [place] tablet 00 EVERY DAY MD Liane olivier [facility] ALPRAZolam 2021-11 Yes 2mg Take 2 mg Un ally 2 mg tablet 1-12 by mouth 3 it y of 00:00: (three) [place] 00 times Medical daily as Branch needed. atorvastati 2021-11 Yes 20mg Take 20 mg Univers n 20 mg 1-12 by mouth ity of tablet 00:00: in the [place] 00 morning. Medical Branch ALPRAZolam 2021-11 Yes 2mg Take 2 mg Un ally 2 mg tablet 1-12 by mouth 3 it y of 00:00: (three) [place] 00 times Medical daily as Branch needed. atorvastati 2021-11 Yes 20mg Take 20 mg Univers n 20 mg 1-12 by mouth ity of tablet 00:00: in the [place] 00 morning. Medical Branch ALPRAZolam 2021-11 Yes 2mg Take 2 mg Un ally 2 mg tablet 1-12 by mouth 3 it y of 00:00: (three) [place] 00 times Medical daily as Branch needed. atorvastati 2021-11 Yes 20mg Take 20 mg Univers n 20 mg 1-12 by mouth ity of tablet 00:00: in the [place] 00 morning. Medical Branch ALPRAZolam 2021-11 Yes 2mg Take 2 mg Un ally 2 mg tablet 1-12 by mouth 3 it y of 00:00: (three) [place] 00 times Medical daily as Branch needed. atorvastati 2021-11 Yes 20mg Take 20 mg Univers n 20 mg 1-12 by mouth ity of tablet 00:00: in the [place] 00 morning. Medical Branch ALPRAZolam 2021-11 Yes 2mg Take 2 mg Un ally 2 mg tablet 1-12 by mouth 3 it y of 00:00: (three) [place] 00 times Medical daily as Branch needed. atorvastati 2021- Yes 20mg Take 20 mg Univers n 20 mg 1-12 by mouth ity of tablet 00:00: in the [place] 00 morning. Medical Branch ALPRAZolam 2021- Yes 2mg Take 2 mg Un ally 2 mg tablet 1-12 by mouth 3 it y of 00:00: (three) [place] 00 times Medical daily as Branch needed. atorvastati 2021- Yes 20mg Take 20 mg Univers n 20 mg 1-12 by mouth ity of tablet 00:00: in the [place] 00 morning. Medical Branch ALPRAZolam 2021- Yes 2mg Take 2 mg Un ally 2 mg tablet 1-12 by mouth 3 it y of 00:00: (three) [place] 00 times Medical daily as Branch needed. atorvastati 2021- Yes 20mg Take 20 mg Univers n 20 mg 1-12 by mouth ity of tablet 00:00: in the [place] 00 morning. Medical Branch ALPRAZolam 2021- Yes 2mg Take 2 mg Un ally 2 mg tablet 1-12 by mouth 3 it y of 00:00: (three) [place] 00 times Medical daily as Branch needed. atorvastati 2021- Yes 20mg Take 20 mg Univers n 20 mg 1-12 by mouth ity of tablet 00:00: in the [place] 00 morning. Medical Branch ALPRAZolam 2021- Yes 2mg Take 2 mg Un ally 2 mg tablet 1-12 by mouth 3 it y of 00:00: (three) [place] 00 times Medical daily as Branch needed. atorvastati 2021- Yes 20mg Take 20 mg Univers n 20 mg 1-12 by mouth ity of tablet 00:00: in the [place] 00 morning. Medical Branch ALPRAZolam 2021- Yes 2mg Take 2 mg Un ally 2 mg tablet 1-12 by mouth 3 it y of 00:00: (three) [place] 00 times Medical daily as Branch needed. atorvastati 2-1 Yes 20mg Take 20 mg Univers n 20 mg 1-12 by mouth ity of tablet 00:00: in the [place] 00 morning. Medical Branch ALPRAZolam 2021- Yes 2mg Take 2 mg Un ally 2 mg tablet 1-12 by mouth 3 it y of 00:00: (three) [place] 00 times Medical daily as Branch needed. atorvastati 2-1 Yes 20mg Take 20 mg Univers n 20 mg 1-12 by mouth ity of tablet 00:00: in the [place] 00 morning. Medical Branch ALPRAZolam 2021-1 Yes 2mg Take 2 mg Un ally 2 mg tablet 1-12 by mouth 3 it y of 00:00: (three) [place] 00 times Medical daily as Branch needed. atorvastati 2-1 Yes 20mg Take 20 mg Univers n 20 mg 1-12 by mouth ity of tablet 00:00: in the [place] 00 morning. Medical Branch ALPRAZolam 2021-1 Yes 2mg Take 2 mg Un ally 2 mg tablet 1-12 by mouth 3 it y of 00:00: (three) [place] 00 times Medical daily as Branch needed. atorvastati 2-1 Yes 20mg Take 20 mg Univers n 20 mg 1-12 by mouth ity of tablet 00:00: in the [place] 00 morning. Medical Branch ALPRAZolam 2021-1 Yes 2mg Take 2 mg Un ally 2 mg tablet 1-12 by mouth 3 it y of 00:00: (three) [place] 00 times Medical daily as Branch needed. atorvastati 2-1 Yes 20mg Take 20 mg Univers n 20 mg 1-12 by mouth ity of tablet 00:00: in the [place] 00 morning. Medical Branch ALPRAZolam 2021- Yes 2mg Take 2 mg Un ally 2 mg tablet 1-12 by mouth 3 it y of 00:00: (three) [place] 00 times Medical daily as Branch needed. atorvastati 2-1 Yes 20mg Take 20 mg Univers n 20 mg 1-12 by mouth ity of tablet 00:00: in the [place] 00 morning. Medical Branch ALPRAZolam 2-1 Yes 2mg Take 2 mg Un ally 2 mg tablet 1-12 by mouth 3 it y of 00:00: (three) [place] 00 times Medical daily as Branch needed. atorvastati 2-1 Yes 20mg Take 20 mg Univers n 20 mg 1-12 by mouth ity of tablet 00:00: in the [place] 00 morning. Medical Branch ALPRAZolam 2-1 Yes [...] by ity of tablet 00:00: mouth in [place] 00 the Medical morning. Branch ALPRAZolam 2021-11 Yes 2mg Take 1 Unive rs 2 mg tablet 1-12 tablet by ity of 00:00: mouth 3 (three) Medical times Branch daily as needed. atorvastati 2021-11 Yes 20mg Take 1 Univ ers n 20 mg 1-12 tablet by ity of tablet 00:00: mouth in [place] 00 the Medical morning. Branch ALPRAZolam 2021-11 Yes 2mg Take 1 Unive rs 2 mg tablet 1-12 tablet by ity of 00:00: mouth 3 (three) Medical times Branch daily as needed. atorvastati 2021-11 Yes 20mg Take 1 Univ ers n 20 mg 1-12 tablet by ity of tablet 00:00: mouth in [place] 00 the Medical morning. Branch ALPRAZolam 2021-11 Yes 2mg Take 1 Unive rs 2 mg tablet 1-12 tablet by ity of 00:00: mouth 3 (three) Medical times Branch daily as needed. atorvastati 2021-11 Yes 20mg Take 1 Univ ers n 20 mg 1-12 tablet by ity of tablet 00:00: mouth in [place] 00 the Medical morning. Branch ALPRAZolam 2021-11 Yes 2mg Take 1 Unive rs 2 mg tablet 1-12 tablet by ity of 00:00: mouth 3 (three) Medical times Branch daily as needed. atorvastati 2021-11 Yes 20mg Take 1 Univ ers n 20 mg 1-12 tablet by ity of tablet 00:00: mouth in [place] 00 the Medical morning. Branch ALPRAZolam 2021-11 [...] in [place] 00 the Medical morning. Branch atorvastati 2021-11 Yes TAKE 1 Univ ers n (LIPITOR) 1-12 TABLET BY ity of 20 mg 00:00: MOUTH [place] tablet 00 EVERY [facility]11 Yes TAKE 1 Univ ers n (LIPITOR) 1-12 TABLET BY ity of 20 mg 00:00: MOUTH [place] tablet 00 EVERY DAY [facility] atorvastati 2021-11 Yes TAKE 1 Univ ers n (LIPITOR) 1-12 TABLET BY ity of 20 mg 00:00: MOUTH [place] tablet 00 EVERY DAY [facility] atorvastati 2021-11 Yes TAKE 1 Univ ers n (LIPITOR) 1-12 TABLET BY ity of 20 mg 00:00: MOUTH [place] tablet 00 EVERY DAY [facility] atorvastati 2021-11 Yes TAKE 1 Univ ers n (LIPITOR) 1-12 TABLET BY ity of 20 mg 00:00: MOUTH [place] tablet 00 EVERY DAY [facility] atorvastati 2021-11 Yes TAKE 1 Univ ers n (LIPITOR) 1-12 TABLET BY ity of 20 mg 00:00: MOUTH [place] tablet 00 EVERY DAY MD [facility] atorvastati 2021-11 Yes TAKE 1 [...] TWICE ity of cream 00:00: DAILY IN [place] 00 AND AROUND Medical THE RECTUM Branch AFTER SITZ [place] hydrocortis 2021-11 Yes APPLY Unive rs one 1 % 1-10 TWICE ity of cream 00:00: DAILY IN [place] 00 AND AROUND Medical THE RECTUM Branch AFTER SITZ [place] hydrocortis 2021-11 Yes APPLY Unive rs one 1 % 1-10 TWICE ity of cream 00:00: DAILY IN [place] 00 AND AROUND Medical THE RECTUM Branch AFTER SITZ [place] hydrocortis 2021-11 Yes APPLY Unive rs one 1 % 1-10 TWICE ity of cream 00:00: DAILY IN [place] 00 AND AROUND Medical THE RECTUM Branch AFTER SITZ [place] hydrocortis 2021-11 Yes APPLY Unive rs one 1 % 1-10 TWICE ity of cream 00:00: DAILY IN [place] 00 AND AROUND Medical THE RECTUM Branch AFTER SITZ [place] hydrocortis 2021-11 Yes APPLY Unive rs one 1 % 1-10 TWICE ity of cream 00:00: DAILY IN [place] 00 AND AROUND Medical THE RECTUM Branch AFTER SITZ [place] hydrocortis 2021-11 Yes APPLY Unive rs one 1 % 1-10 TWICE ity of cream 00:00: DAILY IN [place] 00 AND AROUND Medical THE RECTUM Branch AFTER SITZ [place] hydrocortis 2021-11 Yes APPLY Unive rs one 1 % 1-10 TWICE ity of cream 00:00: DAILY IN [place] 00 AND AROUND Medical THE RECTUM Branch AFTER SITZ [place] hydrocortis 2021-11 Yes APPLY Unive rs one 1 % 1-10 TWICE ity of cream 00:00: DAILY IN [place] 00 AND AROUND Medical THE RECTUM Branch AFTER SITZ [place] hydrocortis 2021-11 Yes APPLY Unive rs one 1 % 1-10 TWICE ity of cream 00:00: DAILY IN [place] 00 AND AROUND Medical THE RECTUM Branch AFTER SITZ [place] hydrocortis 2021-11 Yes APPLY Unive rs one 1 % 1-10 TWICE ity of cream 00:00: DAILY IN [place] 00 AND AROUND Medical THE RECTUM Branch AFTER SITZ [place] hydrocortis 2021-11 Yes APPLY Unive rs one 1 % 1-10 TWICE ity of cream 00:00: DAILY IN [place] 00 AND AROUND Medical THE RECTUM Branch AFTER S[place]Z [place] hydrocortis 2021-11 Yes APPLY Unive rs one 1 % 1-10 TWICE ity of cream 00:00: DAILY IN [place] 00 AND AROUND Medical THE RECTUM Branch AFTER S[place]Z [place] hydrocortis 2021-11 Yes APPLY Unive rs one 1 % 1-10 TWICE ity of cream 00:00: DAILY IN [place] 00 AND AROUND Medical THE RECTUM Branch AFTER S[place]Z [place] hydrocortis 2021-11 Yes APPLY Unive rs one 1 % 1-10 TWICE ity of cream 00:00: DAILY IN [place] 00 AND AROUND Medical THE RECTUM Branch AFTER S[place]Z [place] hydrocortis 2021-11 Yes APPLY Unive rs one 1 % 1-10 TWICE ity of cream 00:00: DAILY IN [place] 00 AND AROUND Medical THE RECTUM Branch AFTER S[place]Z [place] hydrocortis 2021-11 Yes APPLY Unive rs one 1 % 1-10 TWICE ity of cream 00:00: DAILY IN [place] 00 AND AROUND Medical THE RECTUM Branch AFTER S[place]Z [place] hydrocortis 2021-11 Yes APPLY Unive rs one 1 % 1-10 TWICE ity of cream 00:00: DAILY IN [place] 00 AND AROUND Medical THE RECTUM Branch AFTER SITZ [place] hydrocortis 2021-11 Yes APPLY Unive rs one 1 % 1-10 TWICE ity of cream 00:00: DAILY IN [place] 00 AND AROUND Medical THE RECTUM Branch AFTER S[place]Z [place] hydrocortis 2021-11 Yes APPLY Unive rs one 1 % 1-10 TWICE ity of cream 00:00: DAILY IN [place] 00 AND AROUND Medical THE RECTUM Branch AFTER S[place]Z [place] hydrocortis 2021-11 Yes APPLY Unive rs one 1 % 1-10 TWICE ity of cream 00:00: DAILY IN [place] 00 AND AROUND Medical THE RECTUM Branch [...] MD THE RECTUM [place] AFTER SITZ n [place] [facility] [place] hydrocortis 2021-11- No APPLY Univ ers one 1 % 11-10- TWICE ity of crpe 00:00: 00:00 DAILY IN [place] 00 :00 AND AROUND MD THE RECTUM [place] AFTER SITZ n [place] [facility] [place] hydrocortis 2021-11- No APPLY Univ ers one 1 % 11-10- TWICE ity of crpe 00:00: 00:00 DAILY IN [place] 00 :00 AND AROUND MD THE RECTUM [place] AFTER SITZ n [place] [facility] [place] hydrocortis 2021-11- No APPLY Univ ers one 1 % 11-10- TWICE ity of crpe 00:00: 00:00 DAILY IN [place] 00 :00 AND AROUND MD THE RECTUM [place] AFTER SITZ n [place] [facility] [place] hydrocortis 2021-11- No APPLY Univ ers one 1 % 11-10 TWICE ity of crpe 00:00: 00:00 DAILY IN [place] 00 :00 AND AROUND MD THE RECTUM [place] AFTER SITZ n [place] [facility] [place] hydrocortis 2021-11- No APPLY Univ ers one 1 % 11-10 TWICE ity of crpe 00:00: 00:00 DAILY IN [place] 00 :00 AND AROUND MD THE RECTUM [place] AFTER SITZ n [place] [facility] [place] hydrocortis 2021-11- No APPLY Univ ers one 1 % 11-10- TWICE ity of crpe 00:00: 00:00 DAILY IN [place] 00 :00 AND AROUND MD THE RECTUM [place] AFTER [facility] n [place] [place] hydrocortis 2021-11- No APPLY Univ ers one 1 % 11-10- TWICE ity of crpe 00:00: 00:00 DAILY IN [place] 00 :00 AND AROUND THE RECTUM [facility] AFTER [facility] benzonatate 2021-11 Yes TAKE 1 Univ ers [...] by ity of tablet 00:00: mouth in [place] 00 the Medical morning Branch and 0.1 mg at noon and 0.1 mg in the evening. benzonatate 2021-11 Yes TAKE 1 Univ ers 100 mg 1-05 CAPSULE BY ity of capsule 00:00: MOUTH [place] THREE Medical TIMES Branch DAILY NEEDED FOR [...] by ity of tablet 00:00: mouth in [place] 00 the Medical morning Branch and 0.1 mg at noon and 0.1 mg in the evening. benzonatate 2021-11 Yes TAKE 1 Univ ers 100 mg 1-05 CAPSULE BY ity of capsule 00:00: MOUTH [place] THREE Medical TIMES Branch DAILY NEEDED FOR [...] by ity of tablet 00:00: mouth in [place] 00 the Medical morning Branch and 0.1 [...] by ity of tablet 00:00: mouth in [place] the Medical morning Branch and 0.1 mg at noon and 0.1 mg in the evening. benzonatate 2021-11 Yes TAKE 1 Univ ers 100 mg 1-05 CAPSULE BY ity of capsule 00:00: MOUTH [place] THREE Medical TIMES Branch DAILY NEEDED FOR [...] by ity of tablet 00:00: mouth in [place] the Medical morning Branch and 0.1 mg at noon and 0.1 mg in the evening. benzonatate 2021-11 Yes TAKE 1 Univ ers 100 mg 1-05 CAPSULE BY ity of capsule 00:00: MOUTH [place] THREE Medical TIMES Branch DAILY NEEDED FOR [...] by ity of tablet 00:00: mouth in [place] the Medical morning Branch and 0.1 mg at noon and 0.1 mg in the evening. benzonatate 2021-11 Yes TAKE 1 Univ ers 100 mg 1-05 CAPSULE BY ity of capsule 00:00: MOUTH [place] [address] THREE Medical TIMES Branch DAILY NEEDED FOR [...] by ity of tablet 00:00: mouth in [place] the Medical morning Branch and 0.1 mg at noon and 0.1 mg in the evening. benzonatate 2021-11 Yes TAKE 1 Univ ers 100 mg 1-05 CAPSULE BY ity of capsule 00:00: MOUTH [place] [address] THREE Medical TIMES Branch DAILY NEEDED FOR COUGH codeine-gua 2022-1 Yes TAKE 10 ML Univers ifenesin 1-05 [...] by ity of tablet 00:00: mouth in [place] 00 the Medical morning Branch and 0.1 mg at noon and 0.1 mg in the evening. benzonatate 2021-11 Yes TAKE 1 Univ ers 100 mg 1-05 CAPSULE BY ity of capsule 00:00: MOUTH [place] THREE Medical TIMES Branch DAILY NEEDED FOR [...] by ity of tablet 00:00: mouth in [place] 00 the Medical morning Branch and 0.1 mg at noon and 0.1 mg in the evening. benzonatate 2021-11 Yes TAKE 1 Univ ers 100 mg 1-05 CAPSULE BY ity of capsule 00:00: MOUTH [place] 00 THREE Medical TIMES Branch DAILY NEEDED [...] by ity of tablet 00:00: mouth in [place] 00 the Medical morning Branch and 0.1 mg at noon and 0.1 mg in the evening. benzonatate 2021-11 Yes TAKE 1 Univ ers 100 mg 1-05 CAPSULE BY ity of capsule 00:00: MOUTH [place] 00 THREE Medical TIMES Branch DAILY NEEDED [...] by ity of tablet 00:00: mouth in [place] 00 the Medical morning Branch and 0.1 mg at noon and 0.1 mg in the evening. benzonatate 2021-11 Yes TAKE 1 Univ ers 100 mg 1-05 CAPSULE BY ity of capsule 00:00: MOUTH [place] 00 THREE Medical TIMES Branch DAILY NEEDED [...] by ity of tablet 00:00: mouth in [place] 00 the Medical morning Branch and 0.1 mg at noon and 0.1 mg in the evening. benzonatate 2021-11 Yes TAKE 1 Univ ers 100 mg 1-05 CAPSULE BY ity of capsule 00:00: MOUTH [place] THREE Medical TIMES Branch DAILY NEEDED FOR [...] by ity of tablet 00:00: mouth in [place] 00 the Medical morning Branch and 0.1 mg at noon and 0.1 mg in the evening. benzonatate 2021-11 Yes TAKE 1 Univ ers 100 mg 1-05 CAPSULE BY ity of capsule 00:00: MOUTH [place] [address] THREE Medical TIMES Branch DAILY NEEDED FOR COUGH codeine-gua 2021-11 Yes TAKE 10 ML Univers ifenesin 1-05 BY MOUTH ity of 10-100 mg/5 00:00: TWICE [place] mL oral 00 DAILY Medical solution NEEDED FOR Branc h COUGH metoprolol 2022-1 Yes 50mg Take 50 mg U nivers [...] by ity of tablet 00:00: mouth in [place] 00 the Medical morning Branch and 0.1 mg at noon and 0.1 mg in the evening. benzonatate 2021-11 Yes TAKE 1 Univ ers 100 mg 1-05 CAPSULE BY ity of capsule 00:00: MOUTH [place] THREE Medical TIMES [place] DAILY NEEDED FOR COUGH codeine-gua 2021-11 Yes [...] by ity of tablet 00:00: mouth in [place] 00 the Medical morning Branch and 1 tablet at noon and 1 tablet in the evening. benzonatate 2021-11 Yes TAKE 1 Univ ers 100 mg 1-05 CAPSULE BY ity of capsule 00:00: MOUTH [place] [address] THREE Medical TIMES [place] DAILY NEEDED FOR COUGH codeine-gua 2021-11 Yes [...] by ity of tablet 00:00: mouth in [place] the Medical morning Branch and 1 tablet at noon and 1 tablet in the evening. benzonatate 2021-11 Yes TAKE 1 Univ ers 100 mg 1-05 CAPSULE BY ity of capsule 00:00: MOUTH [place] THREE Medical TIMES [place] DAILY NEEDED FOR COUGH codeine-gua 2021-11 Yes TAKE 10 ML [facility] ifenesin 1-05 BY MOUTH ity of 10-100 mg/5 00:00: TWICE [place] mL oral 00 DAILY Medical solution NEEDED FOR Branc h COUGH metoprolol 2021-11 Yes 50mg Take 1 Unive rs succinate 1-05 tablet by ity o f XL 50 mg 24 00:00: mouth in [place] hr tablet the Medical morning and 1 tablet in the evening. oseltamivir 2021-11 Yes TAKE ONE Un ally 75 mg 1-05 (1) ity of capsule 00:00: CAP[place]LE(S[place] BY MOUTH Medical TWICE A Branch DAY. cloNIDine 2021-11 Yes .1mg Take 1 Univer s 0.1 mg 1-05 tablet by ity of tablet 00:00: mouth in [place] the and 1 tablet at noon and 1 tablet in the evening. benzonatate 2021-11 Yes TAKE 1 Univ ers 100 mg 1-05 CAPSULE BY ity of capsule 00:00: MOUTH [place] [facility] TIMES [place] DAILY NEEDED FOR COUGH codeine-gua 2021-11 Yes [...] by ity of tablet 00:00: mouth in [place] 00 the Medical morning Branch and 1 tablet at noon and 1 tablet in the evening. benzonatate 2021-11 Yes TAKE 1 Univ ers 100 mg 1-05 CAPSULE BY ity of capsule 00:00: MOUTH [place] [facility] Medical TIMES [place] DAILY NEEDED FOR COUGH codeine-gua 2021-11 Yes [...] by ity of tablet 00:00: mouth in [place] the Medical morning Branch and 1 tablet at noon and 1 tablet in the evening. benzonatate 2021-11 Yes TAKE 1 Univ ers 100 mg 1-05 CAPSULE BY ity of capsule 00:00: MOUTH [address] Medical TIMES [place] DAILY NEEDED FOR COUGH codeine-gua 2021-11 Yes [...] by ity of tablet 00:00: mouth in [place] the Medical morning Branch and 1 tablet at noon and 1 tablet in the evening. benzonatate 2021-11 Yes TAKE 1 Univ ers 100 mg 1-05 CAPSULE BY ity of capsule 00:00: MOUTH [place] THREE Medical TIMES [place] DAILY NEEDED FOR COUGH codeine-gua 2021-11 Yes [...] by ity of tablet 00:00: mouth in [place] the Medical morning and 1 tablet at noon and 1 tablet in the evening. benzonatate 2021-11 Yes TAKE 1 Univ ers 100 mg 1-05 CAPSULE BY ity of capsule 00:00: MOUTH [place] THREE Medical TIMES [place] DAILY NEEDED FOR COUGH codeine-gua 2021-11 Yes [...] tablet in the evening. LISINOPRIL 2021-11 Yes [id number] TAKE 1/2 Univers 40 mg 1-04 TABLET BY ity of tablet 00:00: MOUTH [place] 00 TWICE Medical DAILY Branch LISINOPRIL 2021-11 Yes [id number] TAKE 1/2 Univers 40 mg 1-04 TABLET BY ity of tablet 00:00: MOUTH [place] 00 TWICE Medical DAILY Branch LISINOPRIL 2021-11 Yes [id number] TAKE 1/2 Univers 40 mg 1-04 TABLET BY ity of tablet 00:00: MOUTH [place] 00 TWICE Medical DAILY Branch LISINOPRIL 2021-11 Yes [id number] TAKE 1/2 Univers 40 mg 1-04 TABLET BY ity of tablet 00:00: MOUTH [place] 00 TWICE Medical DAILY Branch LISINOPRIL 2021-11 Yes [id number] TAKE 1/2 Univers 40 mg 1-04 TABLET BY ity of tablet 00:00: MOUTH [place] 00 TWICE Medical DAILY Branch LISINOPRIL 2021-11 Yes [id number] TAKE 1/2 Univers 40 mg 1-04 TABLET BY ity of tablet 00:00: MOUTH [place] 00 TWICE Medical DAILY Branch LISINOPRIL 2021-11 Yes [id number] TAKE 1/2 Univers 40 mg 1-04 TABLET BY ity of tablet 00:00: MOUTH [place] 00 TWICE Medical DAILY Branch LISINOPRIL 2021-11 [id number] TAKE 1/2 Univers 40 mg 1-04 12-02 TABLET BY ity of tablet 00:00: 00:00 MOUTH [place] 00 :00 TWICE Medical DAILY Branch hydrALAZINE 2021-11 Yes [id number] TAKE 1 Univers 100 mg 1-03 TABLET BY ity of tablet 00:00: MOUTH [place] 00 THREE Medical TIMES Branch DAILY lisinopriL 2021-11 Yes [id number] TAKE 1/2 Univers 40 mg 1-03 TABLET BY ity of tablet 00:00: MOUTH [place] 00 TWICE Medical DAILY Branch metoprolol 2021-11 Yes TAKE 1 Unive rs tartrate 1-03 TABLET BY ity of 100 mg 00:00: MOUTH [place] tablet 00 TWICE Medical DAILY Branch hydrALAZINE 2021-11 Yes [id number] TAKE 1 [facility] 100 mg 1-03 TABLET BY ity of tablet 00:00: MOUTH [place] 00 THREE Medical TIMES Branch DAILY metoprolol 2021-11 Yes TAKE 1 Unive rs tartrate 1-03 TABLET BY ity of 100 mg 00:00: MOUTH [place] tablet 00 TWICE Medical DAILY Branch hydrALAZINE 2021-11 Yes [id number] TAKE 1 [facility] 100 mg 1-03 TABLET BY ity of tablet 00:00: MOUTH [place] 00 THREE Medical TIMES Branch DAILY metoprolol 2021-11 Yes TAKE 1 Unive rs tartrate 1-03 TABLET BY ity of 100 mg 00:00: MOUTH [place] tablet 00 TWICE Medical DAILY Branch hydrALAZINE 2021-11 Yes [id number] TAKE 1 Univers 100 mg 1-03 TABLET BY ity of tablet 00:00: MOUTH [place] 00 THREE Medical TIMES Branch DAILY metoprolol 2021-11 Yes TAKE 1 Unive rs tartrate 1-03 TABLET BY ity of 100 mg 00:00: MOUTH [place] tablet 00 TWICE Medical DAILY Branch hydrALAZINE 2021-11 Yes [id number] TAKE 1 Univers 100 mg 1-03 TABLET BY ity of tablet 00:00: MOUTH [place] 00 THREE Medical TIMES Branch DAILY metoprolol 2021-11 Yes TAKE 1 Unive rs tartrate 1-03 TABLET BY ity of 100 mg 00:00: MOUTH [place] tablet 00 TWICE Medical DAILY Branch hydrALAZINE 2021-11 Yes [id number] TAKE 1 Univers 100 mg 1-03 TABLET BY ity of tablet 00:00: MOUTH [place] 00 THREE Medical TIMES Branch DAILY metoprolol 2021-11 Yes TAKE 1 Unive rs tartrate 1-03 TABLET BY ity of 100 mg 00:00: MOUTH [place] tablet 00 TWICE Medical DAILY Branch hydrALAZINE 2021-11 Yes [id number] TAKE 1 Univers 100 mg 1-03 TABLET BY ity of tablet 00:00: MOUTH [place] 00 THREE Medical TIMES Branch DAILY metoprolol 2021-11 Yes TAKE 1 Unive rs tartrate 1-03 TABLET BY ity of 100 mg 00:00: MOUTH [place] tablet 00 TWICE Medical DAILY Branch hydrALAZINE 2021-11 Yes [id number] TAKE 1 [facility] 100 mg 1-03 TABLET BY ity of tablet 00:00: MOUTH [place] 00 THREE Medical TIMES Branch DAILY metoprolol 2021-11 Yes TAKE 1 Unive rs tartrate 1-03 TABLET BY ity of 100 mg 00:00: MOUTH [place] tablet 00 TWICE Medical DAILY Branch hydrALAZINE 2021-11 Yes [id number] TAKE 1 [facility] 100 mg 1-03 TABLET BY ity of tablet 00:00: MOUTH [place] 00 THREE Medical TIMES Branch DAILY metoprolol 2021-11 Yes TAKE 1 Unive rs tartrate 1-03 TABLET BY ity of 100 mg 00:00: MOUTH [place] tablet 00 TWICE Medical DAILY Branch hydrALAZINE 2021-11 Yes [id number] TAKE 1 Univers 100 mg 1-03 TABLET BY ity of tablet 00:00: MOUTH [place] 00 THREE Medical TIMES Branch DAILY metoprolol 2021-11 Yes TAKE 1 Unive rs tartrate 1-03 TABLET BY ity of 100 mg 00:00: MOUTH [place] tablet 00 TWICE Medical DAILY Branch hydrALAZINE 2021-11 Yes [id number] TAKE 1 [facility] 100 mg 1-03 TABLET BY ity of tablet 00:00: MOUTH [place] 00 THREE Medical TIMES Branch DAILY metoprolol 2021-11 Yes TAKE 1 Unive rs tartrate 1-03 TABLET BY ity of 100 mg 00:00: MOUTH [place] tablet 00 TWICE Medical DAILY Branch hydrALAZINE 2021-11 Yes [id number] TAKE 1 [facility] 100 mg 1-03 TABLET BY ity of tablet 00:00: MOUTH [place] 00 THREE Medical TIMES Branch DAILY hydrALAZINE 2021-11 Yes [id number] TAKE 1 [facility] 100 mg 1-03 TABLET BY ity of tablet 00:00: MOUTH [place] 00 THREE Medical TIMES Branch DAILY hydrALAZINE 2021-11- No [id number] TAKE 1 Univers 100 mg 1-03 -09 TABLET BY ity of tablet 00:00: 00:00 MOUTH [place] 00 :00 THREE Medical TIMES Branch DAILY metoprolol 2021-11- No TAKE 1 Univ ers tartrate 1-03 - TABLET BY ity o f 100 mg 00:00: 00:00 MOUTH [place] tablet 00 :00 TWICE Medical DAILY Branch lisinopriL 2021-11- No [id number] TAKE 1/2 Univers 40 mg -01 09- [...] by ity of tablet 00:00: mouth in [place] 00 the Medical morning Branch and 300 mg in the evening. allopurinoL 2022-1 Yes 300mg Take 300 U nivers 300 mg 1-01 mg by ity of tablet 00:00: mouth in [place] 00 the Medical morning Branch and 300 mg in the evening. allopurinoL 2022-1 Yes 300mg Take 300 U nivers 300 mg 1-01 mg by ity of tablet 00:00: mouth in [place] 00 the Medical morning Branch and 300 mg in the evening. allopurinoL 2022-1 Yes 300mg Take 300 U nivers 300 mg 1-01 mg by ity of tablet 00:00: mouth in [place] 00 the Medical morning Branch and 300 mg in the evening. allopurinoL 2-1 Yes 300mg Take 300 U nivers 300 mg 1-01 mg by ity of tablet 00:00: mouth in [place] 00 the Medical morning Branch and 300 mg in the evening. allopurinoL 2-1 Yes 300mg Take 300 U nivers 300 mg 1-01 mg by ity of tablet 00:00: mouth in [place] 00 the Medical morning Branch and 300 mg in the evening. allopurinoL 2022-1 Yes 300mg Take 300 U nivers 300 mg 1-01 mg by ity of tablet 00:00: mouth in [place] 00 the Medical morning Branch and 300 mg in the evening. allopurinoL 2-1 Yes 300mg Take 300 U nivers 300 mg 1-01 mg by ity of tablet 00:00: mouth in [place] 00 the Medical morning Branch and 300 mg in the evening. allopurinoL 2022-1 Yes 300mg Take 300 U nivers 300 mg 1-01 mg by ity of tablet 00:00: mouth in [place] 00 the Medical morning Branch and 300 mg in the evening. allopurinoL 2022-1 Yes 300mg Take 300 U nivers 300 mg 1-01 mg by ity of tablet 00:00: mouth in [place] [address] the Medical morning Branch and 300 mg in the evening. allopurinoL 2022-1 Yes 300mg Take 300 U nivers 300 mg 1-01 mg by ity of tablet 00:00: mouth in [place] [address] the Medical morning Branch and 300 mg in the evening. allopurinoL 2022-1 Yes 300mg Take 300 U nivers 300 mg 1-01 mg by ity of tablet 00:00: mouth in [place] 00 the Medical morning Branch and 300 mg in the evening. allopurinoL 2022-1 Yes 300mg Take 300 U nivers 300 mg 1-01 mg by ity of tablet 00:00: mouth in [place] 00 the Medical morning Branch and 300 mg in the evening. allopurinoL 2022-1 Yes 300mg Take 300 U nivers 300 mg 1-01 mg by ity of tablet 00:00: mouth in [place] 00 the Medical morning Branch and 300 mg in the evening. allopurinoL 2-1 Yes 300mg Take 300 U nivers 300 mg 1-01 mg by ity of tablet 00:00: mouth in [place] 00 the Medical morning Branch and 300 mg in the evening. allopurinoL 2021-1 Yes 300mg Take 300 U nivers 300 mg 1-01 mg by ity of tablet 00:00: mouth in [place] [address] the Medical morning Branch and 300 mg in the evening. allopurinoL 2-1 Yes 300mg Take 1 Uni vers 300 mg 1-01 tablet by ity of tablet 00:00: mouth in [place] [address] the Medical morning Branch and 1 tablet in the evening. allopurinoL 2-1 Yes 300mg Take 1 Uni vers 300 mg 1-01 tablet by ity of tablet 00:00: mouth in [place] [address] the Medical morning Branch and 1 tablet in the evening. allopurinoL 2-1 Yes 300mg Take 1 Uni vers 300 mg 1-01 tablet by ity of tablet 00:00: mouth in [place] [address] the Medical morning Branch and 1 tablet in the evening. allopurinoL 2-1 Yes 300mg Take 1 Uni vers 300 mg 1-01 tablet by ity of tablet 00:00: mouth in [place] [address] the Medical morning Branch and 1 tablet in the evening. allopurinoL 2022-1 Yes 300mg Take 1 Uni vers 300 mg 1-01 tablet by ity of tablet 00:00: mouth in [place] [address] the Medical morning Branch and 1 tablet in the evening. allopurinoL 2022-1 Yes 300mg Take 1 Uni vers 300 mg 1-01 tablet by ity of tablet 00:00: mouth in [place] [address] the Medical morning [place] and 1 tablet in the evening. allopurinoL 2022-1 Yes 300mg Take 1 Uni vers 300 mg 1-01 tablet by ity of tablet 00:00: mouth in [place] 00 the Medical morning Branch and 1 tablet in the evening. allopurinoL 2021-11 Yes 300mg Take 1 Uni vers 300 mg 11-01 tablet by ity of tablet 00:00: mouth in [place] 00 the Medical morning Branch and 1 tablet in the evening. allopurinol 2021-11- No TAKE 1 Uni vers (ZYLOPRIM) 11-0120 TABLET BY ity of 300 mg 00:00: 00:00 MOUTH [place] tablet 00 :00 TWICE MD DAILY [facility] allopurinol 2021-11- No TAKE 1 Uni vers (ZYLOPRIM) 11-0120 TABLET BY ity of 300 mg 00:00: 00:00 MOUTH [place] tablet 00 :00 TWICE MD DAILY [facility] allopurinol 2021-11- No TAKE 1 Uni vers (ZYLOPRIM) 11-0120 TABLET BY ity of 300 mg 00:00: 00:00 MOUTH [place] tablet 00 :00 TWICE MD DAILY [facility] allopurinol 2021-11- No TAKE 1 Uni vers (ZYLOPRIM) 11-0120 TABLET BY ity of 300 mg 00:00: 00:00 MOUTH [place] tablet 00 :00 TWICE MD DAILY [facility] allopurinol 2021-11- No TAKE 1 Uni vers (ZYLOPRIM) 11-0120 TABLET BY ity of 300 mg 00:00: 00:00 MOUTH [place] tablet 00 :00 TWICE MD DAILY [facility] allopurinol 2021-11- No TAKE 1 Uni vers (ZYLOPRIM) 11-0120 TABLET BY ity of 300 mg 00:00: 00:00 MOUTH [place] tablet 00 :00 TWICE MD DAILY [facility] allopurinol 2021-11- No TAKE 1 Uni vers (ZYLOPRIM) 11-01-20 TABLET BY ity of 300 mg 00:00: 00:00 MOUTH [place] tablet 00 :00 TWICE MD DAILY [facility] allopurinol 2021-11- No TAKE 1 Uni vers (ZYLOPRIM) 11-01-20 TABLET BY ity of 300 mg 00:00: 00:00 MOUTH [place] tablet 00 :00 TWICE MD DAILY [facility] triamcinolo 2021-11 Yes APPLY Unive rs [...] AFFECTED Medi mari AREA TWICE Branch DAILY [facility] 2021-11 Yes APPLY Unive rs ne 0-28 TOPICALLY ity of acetonide 00:00: TO THE [place] 0.1 % cream 00 AFFECTED Medi mari AREA TWICE Branch DAILY [facility] 2021-11 Yes APPLY Unive rs ne 0-28 TOPICALLY ity of acetonide 00:00: TO THE [place] 0.1 % cream 00 AFFECTED Medi mari AREA TWICE Branch DAILY [facility] 2021-11- No APPLY Univ ers ne 0-28 03-14 TOPICALLY ity of (KENALOG) 00:00: 00:00 TO THE [place] 0.1% cream 00 :00 AFFECTED MD AREA TWICE [place] DAILY [facility] 2021-11- No APPLY Univ ers ne 0-28 03-14 TOPICALLY ity of (KENALOG) 00:00: 00:00 TO THE [place] 0.1% cream 00 :00 AFFECTED MD AREA TWICE [place] DAILY [facility] 2021-11- No APPLY Univ ers ne 0-28 03-14 TOPICALLY ity of (KENALOG) 00:00: 00:00 TO THE [place] 0.1% cream 00 :00 AFFECTED MD AREA TWICE [place] DAILY [facility] 2021-11- No APPLY Univ ers ne 0-28 03-14 TOPICALLY ity of (KENALOG) 00:00: 00:00 TO THE [place] 0.1% cream 00 :00 AFFECTED MD AREA TWICE [place] DAILY [facility] 2021-11- No APPLY Univ ers ne 0-28 03-14 TOPICALLY ity of (KENALOG) 00:00: 00:00 TO THE [place] 0.1% cream 00 :00 AFFECTED MD AREA TWICE [place] DAILY [facility] 2021-11- No APPLY Univ ers ne 0-28 03-14 TOPICALLY ity of (KENALOG) 00:00: 00:00 TO THE [place] 0.1% cream 00 :00 AFFECTED MD AREA TWICE [place] DAILY [facility] 2021-11- No APPLY Univ ers ne 0-28 03-14 TOPICALLY ity of (KENALOG) 00:00: 00:00 TO THE [place] 0.1% cream 00 :00 AFFECTED MD AREA TWICE [place] DAILY [facility] 2021-11- No APPLY Univ ers ne 0-28 03-14 TOPICALLY ity of (KENALOG) 00:00: 00:00 TO THE [place] 0.1% cream 00 :00 AFFECTED MD AREA TWICE [place] DAILY n [facility] [place] ketorolac 2021-11- No [id number] 30mg Univers (TORADOL) 0-25 10-25 9105 ity of injection 16:45: 16:45 [place] 30 mg 00 :00 [facility] ketorolac 2021-11- No [id number] 30mg 30 mg, Univers (TORADOL) 0-25 10-25 9105 Intramuscu ity of injection 16:45: 16:45 [place], ONCE, [place] 30 mg 00 :00 1 dose, On [facility] 08/25/22 at 1145, Routine ketorolac 2021-11- No [id number] 30mg Univers (TORADOL) 0-25 10- 9105 ity of injection 16:45: 16:45 [place] 30 mg 00 :00 [facility] ketorolac 2021-11- No [id number] 30mg 30 mg, Univers (TORADOL) 0-25 10-25 9105 Intramuscu ity of injection 16:45: 16:45 [place], ONCE, [place] 30 mg 00 :00 1 dose, On [facility] 08/25/22 at 1145, Routine rizatriptan 2021-11 Yes [id number] 5mg Take 1 Univers 5 mg 0-25 9105 tablet by ity of disintegrat 00:00: mouth [place] ing tablet 00 needed for Med ical Migraine Branch (take 1 on onset of migraine and can repeat in 2 hrs). May repeat in 2 hours if needed rizatriptan 2021-11 Yes [id number] 5mg Take 1 Univers 5 mg 0-25 9105 tablet by ity of disintegrat 00:00: mouth [place] tablet 00 needed for Med ical Migraine Branch (take 1 on onset of migraine and can repeat in 2 hrs). May repeat in 2 hours if needed rizatriptan 2021-11 Yes [id number] 5mg Take 1 [facility] 5 mg 0-25 9105 tablet by ity of disintegrat 00:00: mouth as [place] tablet 00 needed for Med ical Migraine Branch (take 1 on onset of migraine and can repeat in 2 hrs). May repeat in 2 hours if needed rizatriptan 2021-11 Yes [id number] 5mg Take 1 Univers 5 mg 0-25 9105 tablet by ity of disintegrat 00:00: mouth [place] tablet 00 needed for Med ical Migraine Branch (take 1 on onset of migraine and can repeat in 2 hrs). May repeat in 2 hours if needed rizatriptan 2021-11 Yes [id number] 5mg Take 1 [facility] 5 mg 0-25 9105 tablet by ity of disintegrat 00:00: mouth [place] tablet 00 needed for Med ical Migraine Branch (take 1 on onset of migraine and can repeat in 2 hrs). May repeat in 2 hours if needed rizatriptan 2021-11 Yes [id number] 5mg Take 1 Univers 5 mg 0-25 9105 tablet by ity of disintegrat 00:00: mouth [place] tablet 00 needed for Med ical Migraine Branch (take 1 on onset of migraine and can repeat in 2 hrs). May repeat in 2 hours if needed rizatriptan 2021-11 Yes [id number] 5mg Take 1 [facility] 5 mg 0-25 9105 tablet by ity of disintegrat 00:00: mouth [place] tablet 00 needed for Med ical Migraine Branch (take 1 on onset of migraine and can repeat in 2 hrs). May repeat in 2 hours if needed rizatriptan 2021-11 Yes [id number] 5mg Take 1 [facility] 5 mg 0-25 9105 tablet by ity of disintegrat 00:00: mouth [place] tablet 00 needed for Med ical Migraine Branch (take 1 on onset of migraine and can repeat in 2 hrs). May repeat in 2 hours if needed rizatriptan 2021-11 Yes [id number] 5mg Take 1 [facility] 5 mg 0-25 9105 tablet by ity of disintegrat 00:00: mouth [place] tablet 00 needed for Med ical Migraine Branch (take 1 on onset of migraine and can repeat in 2 hrs). May repeat in 2 hours if needed rizatriptan 2021-11 Yes [id number] 5mg Take 1 [facility] 5 mg 0-25 9105 tablet by ity of disintegrat 00:00: mouth [place] tablet 00 needed for Med ical Migraine Branch (take 1 on onset of migraine and can repeat in 2 hrs). May repeat in 2 hours if needed rizatriptan 2021-11 Yes [id number] 5mg Take 1 [facility] 5 mg 0-25 9105 tablet by ity of disintegrat 00:00: mouth [place] tablet 00 needed for Med ical Migraine Branch (take 1 on onset of migraine and can repeat in 2 hrs). May repeat in 2 hours if needed rizatriptan 2021-11 Yes [id number] 5mg Take 1 [facility] 5 mg 0-25 9105 tablet by ity of disintegrat 00:00: mouth [place] tablet 00 needed for Med ical Migraine Branch (take 1 on onset of migraine and can repeat in 2 hrs). May repeat in 2 hours if needed rizatriptan 2021-11 Yes [id number] 5mg Take 1 [facility] 5 mg 0-25 9105 tablet by ity of disintegrat 00:00: mouth [place] tablet 00 needed for Med ical Migraine Branch (take 1 on onset of migraine and can repeat in 2 hrs). May repeat in 2 hours if needed rizatriptan 2021-11 Yes [id number] 5mg Take 1 [facility] 5 mg 0-25 9105 tablet by ity of disintegrat 00:00: mouth [place] tablet 00 needed for Med ical Migraine Branch (take 1 on onset of migraine and can repeat in 2 hrs). May repeat in 2 hours if needed rizatriptan 2021-11 Yes [id number] 5mg Take 1 [facility] 5 mg 0-25 9105 tablet by ity of disintegrat 00:00: mouth [place] tablet 00 needed for Med ical Migraine Branch (take 1 on onset of migraine and can repeat in 2 hrs). May repeat in 2 hours if needed rizatriptan 2021-11 Yes [id number] 5mg Take 1 [facility] 5 mg 0-25 9105 tablet by ity of disintegrat 00:00: mouth [place] tablet 00 needed for Med ical Migraine Branch (take 1 on onset of migraine and can repeat in 2 hrs). May repeat in 2 hours if needed rizatriptan 2021-11 Yes [id number] 5mg Take 1 [facility] 5 mg 0-25 9105 tablet by ity of disintegrat 00:00: mouth [place] tablet 00 needed for Med ical Migraine Branch (take 1 on onset of migraine and can repeat in 2 hrs). May repeat in 2 hours if needed rizatriptan 2021-11 Yes [id number] 5mg Take 1 [facility] 5 mg 0-25 9105 tablet by ity of disintegrat 00:00: mouth [place] ing tablet 00 needed for Med ical Migraine Branch (take 1 on onset of migraine and can repeat in 2 hrs). May repeat in 2 hours if needed rizatriptan 2021-11 Yes [id number] 5mg Take 1 [facility] 5 mg 0-25 9105 tablet by [facility] disintegrat 00:00: [place] tablet 00 needed for Med ical Migraine Branch (take 1 on onset of migraine and can repeat in 2 hrs). May repeat in 2 hours if needed rizatriptan 2021-11 Yes [id number] 5mg Take 1 [facility] 5 mg 0-25 9105 tablet by [facility] of disintegrat 00:00: [place] tablet 00 needed for Med ical Migraine Branch (take 1 on onset of migraine and can repeat in 2 hrs). May repeat in 2 hours if needed rizatriptan 2021-11 Yes [id number] 5mg Take 1 [facility] 5 mg 0-25 9105 tablet by [facility] of disintegrat 00:00: [place] tablet 00 needed for Med ical Migraine Branch (take 1 on onset of migraine and can repeat in 2 hrs). May repeat in 2 hours if needed rizatriptan 2021-11 Yes [id number] 5mg Take 1 [facility] 5 mg 0-25 9105 tablet by [facility] of disintegrat 00:00: mouth [place] tablet 00 needed for Med ical Migraine Branch (take 1 on onset of migraine and can repeat in 2 hrs). May repeat in 2 hours if needed rizatriptan 2021-11 Yes [id number] 5mg Take 1 [facility] 5 mg 0-25 9105 tablet by [facility] of disintegrat 00:00: mouth [place] tablet 00 needed for Med ical Migraine Branch (take 1 on onset of migraine and can repeat in 2 hrs). May repeat in 2 hours if needed rizatriptan 2021-11 Yes [id number] 5mg Take 1 [facility] 5 mg 0-25 9105 tablet by [facility] of disintegrat 00:00: mouth [place] tablet 00 needed for Med ical Migraine Branch (take 1 on onset of migraine and can repeat in 2 hrs). May repeat in 2 hours if needed rizatriptan 2021-11 Yes [id number] 5mg Take 1 [facility] 5 mg 0-25 9105 tablet by [facility] of disintegrat 00:00: mouth [place] tablet 00 needed for Med ical Migraine Branch (take 1 on onset of migraine and can repeat in 2 hrs). May repeat in 2 hours if needed rizatriptan 2021-11 Yes [id number] 5mg Take 1 [facility] 5 mg 0-25 9105 tablet by [facility] of disintegrat 00:00: mouth [place] tablet 00 needed for Med ical Migraine Branch (take 1 on onset of migraine and can repeat in 2 hrs). May repeat in 2 hours if needed rizatriptan 2021-11 Yes [id number] 5mg Take 1 [facility] 5 mg 0-25 9105 tablet by [facility] of disintegrat 00:00: mouth [place] tablet 00 needed for Med ical Migraine Branch (take 1 on onset of migraine and can repeat in 2 hrs). May repeat in 2 hours if needed rizatriptan 2021-11 Yes [id number] 5mg Take 1 [facility] 5 mg 0-25 9105 tablet by [facility] of disintegrat 00:00: mouth [place] tablet 00 needed for Med ical Migraine Branch (take 1 on onset of migraine and can repeat in 2 hrs). May repeat in 2 hours if needed rizatriptan 2021-11 Yes [id number] 5mg Take 1 [facility] 5 mg 0-25 9105 tablet by [facility] of disintegrat 00:00: mouth [place] tablet 00 needed for Med ical Migraine Branch (take 1 on onset of migraine and can repeat in 2 hrs). May repeat in 2 hours if needed rizatriptan 2021-11 Yes [id number] 5mg Take 1 [facility] 5 mg 0-25 9105 tablet by [facility] of disintegrat 00:00: mouth [place] tablet 00 needed for Med ical Migraine Branch (take 1 on onset of migraine and can repeat in 2 hrs). May repeat in 2 hours if needed rizatriptan 2021-11 Yes [id number] 5mg Take 1 [facility] 5 mg 0-25 9105 tablet by [facility]y of disintegrat 00:00: [place] tablet 00 needed for Med ical Migraine Branch (take 1 on onset of migraine and can repeat in 2 hrs). May repeat in 2 hours if needed rizatriptan 2021-11 Yes [id number] 5mg Take 1 [facility] 5 mg 0-25 9105 tablet by ity of disintegrat 00:00: [place] tablet 00 needed for Med ical Migraine Branch (take 1 on onset of migraine and can repeat in 2 hrs). May repeat in 2 hours if needed rizatriptan 2021-11 Yes [id number] 5mg Take 1 [facility] 5 mg 0-25 9105 tablet by ity of disintegrat 00:00: mouth [place] tablet 00 needed for Med ical Migraine Branch (take 1 on onset of migraine and can repeat in 2 hrs). May repeat in 2 hours if needed rizatriptan 2021-11 Yes [id number] 5mg Take 1 [facility] 5 mg 0-25 9105 tablet by ity of disintegrat 00:00: mouth [place] tablet 00 needed for Med ical Migraine Branch (take 1 on onset of migraine and can repeat in 2 hrs). May repeat in 2 hours if needed rizatriptan 2021-11 Yes [id number] 5mg Take 1 [facility] 5 mg 0-25 9105 tablet by ity of disintegrat 00:00: mouth [place] tablet 00 needed for Med ical Migraine Branch (take 1 on onset of migraine and can repeat in 2 hrs). May repeat in 2 hours if needed rizatriptan 2021-11 Yes [id number] 5mg Take 1 [facility] 5 mg 0-25 9105 tablet by ity of disintegrat 00:00: mouth [place] tablet 00 needed for Med ical Migraine Branch (take 1 on onset of migraine and can repeat in 2 hrs). May repeat in 2 hours if needed mezatriptan 2021-11- No Unive rs ([facility] 0-25 03-14 ity of ) 5 mg 00:00: 00:00 [place] disintegrat 00 :[facility] ([employer] [facility] 0-25 03-14 ity of ) 5 mg 00:00: 00:00 [place] [facility]integrat 00 :[facility] ([employer] [facility] 0-25 03-14 ity of ) 5 mg 00:00: 00:00 [place] disintegrat 00 :[facility] Unive rs ([employer] [facility] 0-25 03-14 ity of ) 5 mg 00:00: 00:00 [place] disintegrat 00 :00 [facility] Unive rs ([employer] [facility] 0-25 03-14 ity of ) 5 mg 00:00: 00:00 [place] disintegrat 00 :00 [facility] Unive rs ([employer] [facility] 0-25 03-14 ity of ) 5 mg 00:00: 00:00 [place] disintegrat 00 :[facility] Unive rs ([employer] [facility] 0-25 03-14 ity of ) 5 mg 00:00: 00:00 [place] disintegrat 00 :00 [facility] No Unive rs ([employer] [facility] 0-25 03-14 ity of ) 5 mg 00:00: 00:00 [place] disintegrat 00 :00 MD ing tablet [facility] mesalamine 2021-11 Yes TAKE 4 Unive rs (APRISO) 0-24 CAPSULES ity of 0.375 gram 00:00: BY MOUTH [place] 24 hr 00 DAILY MD restrepo [facility] NITROGLYCER 2021-[id number] 1 Univers IN 0.4 mg 0-24 TABLET ity of sublingual 00:00: UNDER THE [place] tablet 00 TONGUE Medical EVERY 5 Branch MINUTES NEEDED FOR CHEST PAIN. NITROGLYCER 2021-[id number] 1 [facility] IN 0.4 mg 0-24 TABLET ity of sublingual 00:00: UNDER THE [place] tablet 00 TONGUE Medical EVERY 5 Branch MINUTES NEEDED FOR CHEST PAIN. NITROGLYCER 2021-[id number] 1 [facility] IN 0.4 mg 0-24 TABLET ity of sublingual 00:00: UNDER THE [place] tablet 00 TONGUE Medical EVERY 5 Branch MINUTES NEEDED FOR CHEST PAIN. NITROGLYCER 2021-[id number] 1 [facility] IN 0.4 mg 0-24 TABLET ity of sublingual 00:00: UNDER THE [place] tablet 00 TONGUE Medical EVERY 5 Branch MINUTES NEEDED FOR CHEST PAIN. NITROGLYCER 2021-[id number] 1 [facility] IN 0.4 mg 0-24 TABLET ity of sublingual 00:00: UNDER THE [place] tablet 00 TONGUE Medical EVERY 5 Branch MINUTES NEEDED FOR CHEST PAIN. NITROGLYCER 2021-[id number] 1 [facility] IN 0.4 mg 0-24 TABLET ity of sublingual 00:00: UNDER THE [place] tablet 00 TONGUE Medical EVERY 5 Branch MINUTES NEEDED FOR CHEST PAIN. NITROGLYCER 2021-[id number] 1 [facility] IN 0.4 mg 0-24 TABLET ity of sublingual 00:00: UNDER THE [place] tablet 00 TONGUE Medical EVERY 5 Branch MINUTES NEEDED FOR CHEST PAIN. NITROGLYCER 2021-[id number] 1 [facility] IN 0.4 mg 0-24 TABLET ity of sublingual 00:00: UNDER THE [place] tablet 00 TONGUE Medical EVERY 5 Branch MINUTES NEEDED FOR CHEST PAIN. NITROGLYCER 2021-[id number] 1 [facility] IN 0.4 mg 0-24 TABLET ity of sublingual 00:00: UNDER THE [place] tablet 00 TONGUE Medical EVERY 5 Branch MINUTES NEEDED FOR CHEST PAIN. NITROGLYCER 2021-[id number] 1 [facility] IN 0.4 mg 0-24 TABLET ity of sublingual 00:00: UNDER THE [place] tablet 00 TONGUE Medical EVERY 5 Branch MINUTES NEEDED FOR CHEST PAIN. NITROGLYCER 2021-[id number] 1 [facility] IN 0.4 mg 0-24 TABLET ity of sublingual 00:00: UNDER THE [place] tablet 00 TONGUE Medical EVERY 5 Branch MINUTES NEEDED FOR CHEST PAIN. NITROGLYCER 2021-[id number] 1 [facility] IN 0.4 mg 0-24 TABLET ity of sublingual 00:00: UNDER THE [place] tablet 00 TONGUE Medical EVERY 5 Branch MINUTES NEEDED FOR CHEST PAIN. NITROGLYCER 2021-[id number] 1 [facility] IN 0.4 mg 0-24 TABLET ity of sublingual 00:00: UNDER THE [place] tablet 00 TONGUE Medical EVERY 5 Branch MINUTES NEEDED FOR CHEST PAIN. NITROGLYCER 2021-[id number] 1 [facility] IN 0.4 mg 0-24 TABLET ity of sublingual 00:00: UNDER THE [place] tablet 00 TONGUE Medical EVERY 5 Branch MINUTES NEEDED FOR CHEST PAIN. NITROGLYCER 2021-[id number] 1 [facility] IN 0.4 mg 0-24 TABLET ity of sublingual 00:00: UNDER THE [place] tablet 00 TONGUE Medical EVERY 5 Branch MINUTES NEEDED FOR CHEST PAIN. NITROGLYCER 2021-[id number] 1 [facility] IN 0.4 mg 0-24 TABLET ity of sublingual 00:00: UNDER THE [place] tablet 00 TONGUE Medical EVERY 5 Branch MINUTES NEEDED FOR CHEST PAIN. NITROGLYCER 2021-[id number] 1 [facility] IN 0.4 mg 0-24 TABLET ity of sublingual 00:00: UNDER THE [place] tablet 00 TONGUE Medical EVERY 5 Branch MINUTES NEEDED FOR CHEST PAIN. NITROGLYCER 2021-[id number] 1 [facility] IN 0.4 mg 0-24 TABLET ity of sublingual 00:00: UNDER THE [place] tablet 00 TONGUE Medical EVERY 5 Branch MINUTES NEEDED FOR CHEST PAIN. NITROGLYCER 2021-[id number] 1 [facility] IN 0.4 mg 0-24 TABLET ity of sublingual 00:00: UNDER THE [place] tablet 00 TONGUE Medical EVERY 5 Branch MINUTES NEEDED FOR CHEST PAIN. NITROGLYCER 2021-[id number] 1 [facility] IN 0.4 mg 0-24 TABLET ity of sublingual 00:00: UNDER THE [place] tablet 00 TONGUE Medical EVERY 5 Branch MINUTES NEEDED FOR CHEST PAIN. NITROGLYCER 2021-[id number] 1 [facility] IN 0.4 mg 0-24 TABLET ity of sublingual 00:00: UNDER THE [place] tablet 00 TONGUE Medical EVERY 5 Branch MINUTES NEEDED FOR CHEST PAIN. NITROGLYCER 2021-[id number] 1 [facility] IN 0.4 mg 0-24 TABLET ity of sublingual 00:00: UNDER THE [place] tablet 00 TONGUE Medical EVERY 5 Branch MINUTES NEEDED FOR CHEST PAIN. NITROGLYCER 2021-[id number] 1 [facility] IN 0.4 mg 0-24 TABLET ity of sublingual 00:00: UNDER THE [place] tablet 00 TONGUE Medical EVERY 5 Branch MINUTES NEEDED FOR CHEST PAIN. NITROGLYCER 2021-[id number] 1 [facility] IN 0.4 mg 0-24 TABLET ity of sublingual 00:00: UNDER THE [place] tablet 00 TONGUE Medical EVERY 5 Branch MINUTES NEEDED FOR CHEST PAIN. NITROGLYCER 2021-[id number] 1 [facility] IN 0.4 mg 0-24 TABLET ity of sublingual 00:00: UNDER THE [place] tablet 00 TONGUE Medical EVERY 5 Branch MINUTES NEEDED FOR CHEST PAIN. NITROGLYCER 2021-[id number] 1 [facility] IN 0.4 mg 0-24 TABLET ity of sublingual 00:00: UNDER THE [place] tablet 00 TONGUE Medical EVERY 5 Branch MINUTES NEEDED FOR CHEST PAIN. NITROGLYCER 2021-[id number] 1 [facility] IN 0.4 mg 0-24 TABLET ity of sublingual 00:00: UNDER THE [place] tablet 00 TONGUE Medical EVERY 5 Branch MINUTES NEEDED FOR CHEST PAIN. NITROGLYCER 2021-[id number] 1 [facility] IN 0.4 mg 0-24 TABLET ity of sublingual 00:00: UNDER THE [place] tablet 00 TONGUE Medical EVERY 5 Branch MINUTES NEEDED FOR CHEST PAIN. NITROGLYCER 2021-[id number] 1 [facility] IN 0.4 mg 0-24 TABLET ity of sublingual 00:00: UNDER THE [place] tablet 00 TONGUE Medical EVERY 5 Branch MINUTES NEEDED FOR CHEST PAIN. NITROGLYCER 2021-[id number] 1 [facility] IN 0.4 mg 0-24 TABLET ity of sublingual 00:00: UNDER THE [place] tablet 00 TONGUE Medical EVERY 5 Branch MINUTES NEEDED FOR CHEST PAIN. NITROGLYCER 2021-[id number] 1 [facility] IN 0.4 mg 0-24 TABLET ity of sublingual 00:00: UNDER THE [place] tablet 00 TONGUE Medical EVERY 5 Branch MINUTES NEEDED FOR CHEST PAIN. NITROGLYCER 2021-[id number] 1 [facility] IN 0.4 mg 0-24 TABLET ity of sublingual 00:00: UNDER THE [place] tablet 00 TONGUE Medical EVERY 5 Branch MINUTES NEEDED FOR CHEST PAIN. NITROGLYCER 2021-[id number] 1 [facility] IN 0.4 mg 0-24 TABLET ity of sublingual 00:00: UNDER THE [place] tablet 00 TONGUE Medical EVERY 5 Branch MINUTES NEEDED FOR CHEST PAIN. NITROGLYCER 2021-[id number] 1 [facility] IN 0.4 mg 0-24 TABLET ity of sublingual 00:00: UNDER THE [place] tablet 00 TONGUE Medical EVERY 5 Branch MINUTES NEEDED FOR CHEST PAIN. NITROGLYCER 2021-[id number] 1 [facility] IN 0.4 mg 0-24 TABLET ity of sublingual 00:00: UNDER THE [place] tablet 00 TONGUE Medical EVERY 5 Branch MINUTES NEEDED FOR CHEST PAIN. NITROGLYCER 2021-[id number] 1 [facility] IN 0.4 mg 0-24 TABLET ity of sublingual 00:00: UNDER THE [place] tablet 00 TONGUE Medical EVERY 5 Branch MINUTES NEEDED FOR CHEST PAIN. NITROGLYCER 2021-[id number] 1 [facility] IN 0.4 mg 0-24 TABLET ity of sublingual 00:00: UNDER THE [place] tablet 00 TONGUE Medical EVERY 5 Branch MINUTES NEEDED FOR CHEST PAIN. NITROGLYCER 2021-[id number] 1 [facility] IN 0.4 mg 0-24 TABLET ity of sublingual 00:00: [facility]ER THE [place] tablet 00 TONGUE Medical EVERY 5 Branch MINUTES NEEDED FOR CHEST PAIN. mesalamine 2021-11 Yes TAKE 4 Unive rs (APRISO) 0-24 CAPSULES ity of 0.375 gram 00:00: BY MOUTH [place] 24 hr 00 [facility] 4 Unive rs (APRISO) 0-24 CAPSULES ity of 0.375 gram 00:00: BY MOUTH [place] 24 hr 00 DAILY capsule [facility] 2021-11 Yes TAKE 4 Unive rs (APRISO) 0-24 CAPSULES ity of 0.375 gram 00:00: BY MOUTH [place] 24 hr 00 DAILY [facility] 4 Unive rs (APRISO) 0-24 CAPSULES ity of 0.375 gram 00:00: BY MOUTH [place] 24 hr 00 DAILY MD capsule [facility] 2021-11 Yes TAKE 4 Unive rs (APRISO) 0-24 CAPSULES ity of 0.375 gram 00:00: BY MOUTH [place] 24 hr 00 DAILY MD capsule [facility] 2021-11 Yes TAKE 4 Unive rs (APRISO) 0-24 CAPSULES ity of 0.375 gram 00:00: BY MOUTH [place] 24 hr 00 DAILY MD capsule [facility] 2021-11 Yes TAKE 4 Unive rs (APRISO) 0-24 CAPSULES ity of 0.375 gram 00:00: BY MOUTH [place] 24 hr 00 DAILY MD capsule [facility] GABAPENTIN 2021-11 Yes [id number] TAKE 1 Univers 600 mg 0-21 TABLET BY ity of tablet 00:00: MOUTH [place] THREE Medical TIMES Branch DAILY GABAPENTIN 2021-11 Yes [id number] TAKE 1 [facility] 600 mg 0-21 TABLET BY ity of tablet 00:00: MOUTH THREE Medical TIMES Branch DAILY GABAPENTIN 2021-11 Yes [id number] TAKE 1 [facility] 600 mg 0-21 TABLET BY ity of tablet 00:00: MOUTH [place] THREE Medical TIMES Branch DAILY GABAPENTIN 2021- Yes [id number] TAKE 1 [facility] 600 mg 0-21 TABLET BY ity of tablet 00:00: MOUTH THREE Medical TIMES Branch DAILY GABAPENTIN 2021- Yes [id number] TAKE 1 [facility] 600 mg 0-21 TABLET BY ity of tablet 00:00: MOUTH [place] THREE Medical TIMES Branch DAILY GABAPENTIN 2021- Yes [id number] TAKE 1 [facility] 600 mg 0-21 TABLET BY ity of tablet 00:00: MOUTH THREE Medical TIMES Branch DAILY GABAPENTIN 2021- Yes [id number] TAKE 1 [facility] 600 mg 0-21 TABLET BY ity of tablet 00:00: MOUTH [place] 00 THREE Medical TIMES Branch DAILY GABAPENTIN 2021-11 Yes [id number] TAKE 1 [facility] 600 mg 0-21 TABLET BY ity of tablet 00:00: MOUTH [place] 00 THREE Medical TIMES Branch DAILY GABAPENTIN 2021-11 Yes [id number] TAKE 1 [facility] 600 mg 0-21 TABLET BY ity of tablet 00:00: MOUTH [place] 00 THREE Medical TIMES Branch DAILY GABAPENTIN 2021-11 Yes [id number] TAKE 1 [facility] 600 mg 0-21 TABLET BY ity of tablet 00:00: MOUTH [place] 00 THREE Medical TIMES Branch DAILY GABAPENTIN 2021-11 Yes [id number] TAKE 1 [facility] 600 mg 0-21 TABLET BY ity of tablet 00:00: MOUTH [place] 00 THREE Medical TIMES Branch DAILY GABAPENTIN 2021-11- No [id number] TAKE 1 [facility] 600 mg 0-21 11-17 TABLET BY ity of tablet 00:00: 00:00 MOUTH [place] 00 :00 [facility] Medical TIMES Branch DAILY sucralfate 2021-11- No TAKE 1 Univ ers (CARAFATE) 0-20 02-14 TABLET BY ity of 1 g tablet 00:00: 00:00 MOUTH [place] 00 :00 TWICE MD DAILY [facility] sucralfate 2021-11- No TAKE 1 Univ ers (CARAFATE) 0-20 02-14 TABLET BY ity of 1 g tablet 00:00: 00:00 MOUTH [place] 00 :00 TWICE MD DAILY [facility] sucralfate 2021-11- No TAKE 1 Univ ers (CARAFATE) 0-20 02-14 TABLET BY ity of 1 g tablet 00:00: 00:00 MOUTH [place] 00 :00 TWICE MD DAILY [facility] sucralfate 2021-11- No TAKE 1 Univ ers (CARAFATE) 0-20 02-14 TABLET BY ity of 1 g tablet 00:00: 00:00 MOUTH [place] 00 :00 TWICE MD DAILY [facility] sucralfate 2021-11- No TAKE 1 Univ ers (CARAFATE) 0-20 02-14 TABLET BY ity of 1 g tablet 00:00: 00:00 MOUTH [place] 00 :00 TWICE MD DAILY [facility] sucralfate 2021-11- No TAKE 1 Univ ers (CARAFATE) 0-20 02-14 TABLET BY ity of 1 g tablet 00:00: 00:00 MOUTH [place] 00 :00 TWICE MD DAILY [facility] sucralfate 2021-11- No TAKE 1 Univ ers (CARAFATE) 0-20 02-14 TABLET BY ity of 1 g tablet 00:00: 00:00 MOUTH [place] 00 :00 TWICE MD DAILY [facility] sucralfate 2021-11- No TAKE 1 Univ ers (CARAFATE) 0-20 02-14 TABLET BY ity of 1 g tablet 00:00: 00:00 MOUTH [place] 00 :00 TWICE MD DAILY [facility] HYDROcodone 2021-11 Yes [id number] 1{tbl} Take [...] Indication s: chronic pain HYDRALAZINE 2021-11 Yes [id number] TAKE 1 [facility] 100 mg 0-05 TABLET BY ity of tablet 00:00: MOUTH [place] 00 THREE Medical TIMES Branch DAILY HYDRALAZINE 2021-11 Yes [id number] TAKE 1 [facility] 100 mg 0-05 TABLET BY ity of tablet 00:00: MOUTH THREE Medical TIMES Branch DAILY HYDRALAZINE 2021-11 Yes [id number] TAKE 1 [facility] 100 mg 0-05 TABLET BY ity of tablet 00:00: MOUTH [place] THREE Medical TIMES Branch DAILY HYDRALAZINE 2021-11 Yes [id number] TAKE 1 [facility] 100 mg 0-05 TABLET BY ity of tablet 00:00: MOUTH THREE Medical TIMES Branch DAILY HYDRALAZINE 2021-11 Yes [id number] TAKE 1 [facility] 100 mg 0-05 TABLET BY ity of tablet 00:00: MOUTH THREE Medical TIMES Branch DAILY HYDRALAZINE 2021-11 Yes [id number] TAKE 1 [facility] 100 mg 0-05 TABLET BY ity of tablet 00:00: MOUTH [place] THREE Medical TIMES Branch DAILY HYDRALAZINE 2021-11 Yes [id number] TAKE 1 [facility] 100 mg 0-05 TABLET BY ity of tablet 00:00: MOUTH [place] 00 THREE Medical TIMES Branch DAILY HYDRALAZINE 2021-11 Yes [id number] TAKE 1 [facility] 100 mg 0-05 TABLET BY ity of tablet 00:00: MOUTH [place] 00 THREE Medical TIMES Branch DAILY HYDRALAZINE 2021-11 Yes [id number] TAKE 1 [facility] 100 mg 0-05 TABLET BY ity of tablet 00:00: MOUTH [place] 00 THREE Medical TIMES Branch DAILY HYDRALAZINE 2021-11 Yes [id number] TAKE 1 [facility] 100 mg 0-05 TABLET BY ity of tablet 00:00: MOUTH [place] 00 THREE Medical TIMES Branch DAILY HYDRALAZINE 2021-11 Yes [id number] TAKE 1 [facility] 100 mg 0-05 TABLET BY ity of tablet 00:00: MOUTH [place] 00 THREE Medical TIMES Branch DAILY HYDRALAZINE 2021-11- No [id number] TAKE 1 [facility] 100 mg 0-05 11-03 [...] Medical x 5/16 Syrg Branch GABAPENTIN Yes [id number] TAKE 1 [facility] 600 mg 9-26 TABLET [...] Medical x 5/16 Syrg Branch GABAPENTIN Yes [id number] TAKE 1 [facility] 600 mg 9-26 TABLET [...] x 5/16 Syrg Branch GABAPENTIN 2021-0 Yes [id number] TAKE 1 [facility] 600 mg 9-26 TABLET [...] x 5/16 Syrg Branch GABAPENTIN 2021-0 Yes [id number] TAKE 1 [facility] 600 mg 9-26 TABLET [...] 00 Medical x 5/16 Syrg Branch INSULIN 202-0 Yes USE TWICE Unive rs [...] 2022-0 Yes 5mg Take 5 mg Un alyl 5 mg tablet 9-26 by mouth ity of 00:00: in the [place] morning. Medical Branch INSULIN 2022-0 Yes USE TWICE Unive rs SYRINGE-NEE 9-26 DAILY WITH it y of DLE U-100 1 00:00: MEALS [facility] 31 gauge 00 Medical x 5/16 Syrg Branch amLODIPine 2022-0 Yes 5mg Take 5 mg Un ally 5 mg tablet 9-26 by mouth ity of 00:00: in the [place] morning. Medical Branch INSULIN 2022-0 Yes USE TWICE Unive rs SYRINGE-NEE 9-26 DAILY WITH it y of DLE U-100 1 00:00: MEALS [facility] 31 gauge 00 Medical x 5/16 Syrg Branch amLODIPine 2022-0 Yes 5mg Take 5 mg Un ally 5 mg tablet 9-26 by mouth ity of 00:00: in the [place] morning. Medical Branch INSULIN 2022-0 Yes USE TWICE Unive rs SYRINGE-NEE 9-26 DAILY WITH it y of DLE U-100 1 00:00: MEALS [facility] 31 gauge 00 Medical x 5/16 Syrg Branch amLODIPine 2-0 Yes 5mg Take 5 mg Un ally 5 mg tablet 9-26 by mouth ity of 00:00: in the [place] morning. Medical Branch INSULIN 2022-0 Yes USE TWICE Unive rs SYRINGE-NEE 9-26 DAILY WITH it y of DLE U-100 1 00:00: MEALS [facility] 31 gauge 00 Medical x 5/16 Syrg Branch amLODIPine 2022-0 Yes 5mg Take 5 mg Un ally 5 mg tablet 9-26 by mouth ity of 00:00: in the [place] morning. Medical Branch INSULIN 2022-0 Yes USE TWICE Unive rs SYRINGE-NEE 9-26 DAILY WITH it y of DLE U-100 1 00:00: MEALS [place] mL 31 gauge 00 Medical x 5/16 Syrg Branch amLODIPine 2022-0 Yes 5mg Take 5 mg Un ally 5 mg tablet 9-26 by mouth ity of 00:00: in the [place] 00 morning. Medical Branch INSULIN 2022-0 Yes USE TWICE Unive rs SYRINGE-NEE 9-26 DAILY WITH it y of DLE U-100 1 00:00: MEALS [place] mL 31 gauge 00 Medical x 5/16 Syrg Branch amLODIPine 2-0 Yes 5mg Take 5 mg Un ally 5 mg tablet 9-26 by mouth ity of 00:00: in the [place] morning. Medical Branch INSULIN 2-0 Yes USE TWICE Unive rs SYRINGE-NEE 9-26 DAILY WITH it y of DLE U-100 1 00:00: MEALS [place] mL 31 gauge 00 Medical x 5/16 Syrg Branch amLODIPine 2-0 Yes 5mg Take 5 mg Un ally 5 mg tablet 9-26 by mouth ity of 00:00: in the [place] morning. Medical Branch INSULIN 2-0 Yes USE TWICE Unive rs SYRINGE-NEE 9-26 DAILY WITH it y of DLE U-100 1 00:00: MEALS [place] mL 31 gauge 00 Medical x 5/16 Syrg Branch amLODIPine 2-0 Yes 5mg Take 5 mg Un ally 5 mg tablet 9-26 by mouth ity of 00:00: in the [place] morning. Medical Branch INSULIN 2-0 Yes USE TWICE Unive rs SYRINGE-NEE 9-26 DAILY WITH it y of DLE U-100 1 00:00: MEALS [facility] 31 gauge 00 Medical x 5/16 Syrg Branch amLODIPine 2-0 Yes 5mg Take 5 mg Un ally 5 mg tablet 9-26 by mouth ity of 00:00: in the [place] morning. Medical Branch INSULIN 2-0 Yes USE TWICE Unive rs SYRINGE-NEE 9-26 DAILY WITH it y of DLE U-100 1 00:00: MEALS [facility] 31 gauge 00 Medical x 5/16 Syrg Branch amLODIPine 2022-0 Yes 5mg Take 5 mg Un ally 5 mg tablet 9-26 by mouth ity of 00:00: in the [place] morning. Medical Branch INSULIN 2-0 Yes USE TWICE Unive rs SYRINGE-NEE 9-26 DAILY WITH it y of DLE U-100 1 00:00: MEALS [place] mL 31 gauge 00 Medical x 5/16 Syrg Branch amLODIPine 2022-0 Yes 5mg Take 5 mg Un ally 5 mg tablet 9-26 by mouth ity of 00:00: in the [place] 00 morning. Medical Branch INSULIN 2022-0 Yes USE TWICE Unive rs SYRINGE-NEE 9-26 DAILY WITH it y of DLE U-100 1 00:00: MEALS [place] mL 31 gauge 00 Medical x 5/16 Syrg Branch amLODIPine 2-0 Yes 5mg Take 5 mg Un ally 5 mg tablet 9-26 by mouth ity of 00:00: in the [place] morning. Medical Branch INSULIN 2022-0 Yes USE TWICE Unive rs SYRINGE-NEE 9-26 DAILY WITH it y of DLE U-100 1 00:00: MEALS [place] mL 31 gauge 00 Medical x 5/16 Syrg Branch amLODIPine 2-0 Yes 5mg Take 5 mg Un ally 5 mg tablet 9-26 by mouth ity of 00:00: in the [place] morning. Medical Branch INSULIN 2-0 Yes USE TWICE Unive rs SYRINGE-NEE 9-26 DAILY WITH it y of DLE U-100 1 00:00: MEALS [facility] 31 gauge 00 Medical x 5/16 Syrg Branch amLODIPine 2-0 Yes 5mg Take 5 mg Un ally 5 mg tablet 9-26 by mouth ity of 00:00: in the [place] morning. Medical Branch INSULIN 2-0 Yes USE TWICE Unive rs SYRINGE-NEE 9-26 DAILY WITH it y of DLE U-100 1 00:00: MEALS [facility] 31 gauge 00 Medical x 5/16 Syrg Branch amLODIPine 2-0 Yes 5mg Take 5 mg Un ally 5 mg tablet 9-26 by mouth ity of 00:00: in the [place] morning. Medical Branch INSULIN 2-0 Yes USE TWICE Unive rs SYRINGE-NEE 9-26 DAILY WITH it y of DLE U-100 1 00:00: MEALS [facility] 31 gauge 00 Medical x 5/16 Syrg Branch amLODIPine 2-0 Yes 5mg Take 5 mg Un ally 5 mg tablet 9-26 by mouth ity of 00:00: in the [place] morning. Medical Branch INSULIN 2022-0 Yes USE TWICE Unive rs SYRINGE-NEE 9-26 DAILY WITH it y of DLE U-100 1 00:00: MEALS [place] mL 31 gauge 00 Medical x 5/16 Syrg Branch amLODIPine 2-0 Yes 5mg Take 1 Unive rs 5 mg tablet 9-26 tablet by ity of 00:00: mouth in [place] the Medical morning. Branch INSULIN 2022-0 Yes USE TWICE Unive rs SYRINGE-NEE 9-26 DAILY WITH it y of DLE U-100 1 00:00: MEALS [place] mL 31 gauge 00 Medical x 5/16 Syrg Branch amLODIPine 2022-0 Yes 5mg Take 1 Unive rs 5 mg tablet 9-26 tablet by ity of 00:00: mouth in [place] the Medical morning. Branch INSULIN 2022-0 Yes USE TWICE Unive rs SYRINGE-NEE 9-26 DAILY WITH it y of DLE U-100 1 00:00: MEALS [place] mL 31 gauge 00 Medical x 5/16 Syrg Branch amLODIPine 2-0 Yes 5mg Take 1 Unive rs 5 mg tablet 9-26 tablet by ity of 00:00: mouth in [place] the Medical morning. Branch INSULIN 2022-0 Yes USE TWICE Unive rs SYRINGE-NEE 9-26 DAILY WITH it y of DLE U-100 1 00:00: MEALS [place] mL 31 gauge 00 Medical x 5/16 Syrg Branch amLODIPine 2-0 Yes 5mg Take 1 Unive rs 5 mg tablet 9-26 tablet by ity of 00:00: mouth in [place] the Medical morning. Branch INSULIN 2022-0 Yes USE TWICE Unive rs SYRINGE-NEE 9-26 DAILY WITH it y of DLE U-100 1 00:00: MEALS [place] mL 31 gauge 00 Medical x 5/16 Syrg Branch amLODIPine 2-0 Yes 5mg Take 1 Unive rs 5 mg tablet 9-26 tablet by ity of 00:00: mouth in [place] the Medical morning. Branch INSULIN 2022-0 Yes USE TWICE Unive rs SYRINGE-NEE 9-26 DAILY WITH it y of DLE U-100 1 00:00: MEALS [place] mL 31 gauge 00 Medical x 5/16 Syrg Branch amLODIPine 2022-0 Yes 5mg Take 1 Unive rs 5 mg tablet 9-26 tablet by ity of 00:00: mouth in [place] the Medical morning. Branch INSULIN 2022-0 Yes USE TWICE Unive rs SYRINGE-NEE 9-26 DAILY WITH it y of DLE U-100 1 00:00: MEALS [place] mL 31 gauge 00 Medical x 5/16 Syrg Branch amLODIPine 2022-0 Yes 5mg Take 1 Unive rs 5 mg tablet 9-26 tablet by ity of 00:00: mouth in [place] 00 the Medical morning. Branch INSULIN Yes USE TWICE Unive rs SYRINGE-NEE 9-26 DAILY WITH it y of DLE U-100 1 00:00: MEALS [place] mL 31 gauge 00 Medical x 03/16 Syrg Branch amLODIPine 0 Yes 5mg Take 1 Unive rs 5 mg tablet 9-26 tablet by ity of 00:00: mouth in [place] 00 the Medical morning. Branch NITROGLYCER 2021- No PLACE 1 Un ally IN 0.4 mg 9-26 10-24 TABLET ity of sublingual 00:00: 00:00 [place]ER THE [place] tablet 00 :00 TONGUE Medical EVERY 5 Branch MINUTES NEEDED FOR CHEST PAIN. GABAPENTIN 2021- No [id number] TAKE 1 [facility] 600 mg 9-26 10-21 TABLET BY ity of tablet 00:00: 00:00 MOUTH [place] 00 :00 THREE Medical TIMES Branch DAILY Motegrity 2 Yes TAKE 1 Univ ers mg tab 9-25 TABLET BY ity of 00:00: MOUTH [place] 00 DAILY MD [facility] Motegrity 2 Yes TAKE 1 Univ ers mg tab 9-25 TABLET BY ity of 00:00: MOUTH [place] 00 DAILY MD [facility] Motegrity 2 Yes TAKE 1 Univ ers mg tab 9-25 TABLET BY ity of 00:00: MOUTH [place] 00 DAILY MD [facility] Motegrity 2 0 Yes TAKE 1 Univ ers mg tab 9-25 TABLET BY ity of 00:00: MOUTH [place] DAILY MD [facility] Motegrity 2 Yes TAKE 1 Univ ers mg tab 9-25 TABLET BY ity of 00:00: MOUTH [place] 00 DAILY MD [facility] Motegrity 2 Yes TAKE 1 Univ ers mg tab 9-25 TABLET BY ity of 00:00: MOUTH [place] 00 DAILY MD [facility] Motegrity 2 Yes TAKE 1 Univ ers mg tab 9-25 TABLET BY ity of 00:00: MOUTH [place] 00 DAILY MD [facility] Motegrity 2 Yes TAKE 1 Univ ers mg tab 9-25 TABLET BY ity of 00:00: MOUTH [place] 00 DAILY MD [facility] COLCHICINE 2022-0 Yes [id number] .6mg TAKE 1 U nivers 0.6 mg 9-19 TABLET BY ity of tablet 00:00: MOUTH DAILY Medical Branch COLCHICINE 2022-0 Yes [id number] .6mg TAKE 1 U nivers 0.6 mg 9-19 TABLET BY ity of tablet 00:00: MOUTH DAILY Medical Branch COLCHICINE 2022-0 Yes [id number] .6mg TAKE 1 U nivers 0.6 mg 9-19 TABLET BY ity of tablet 00:00: MOUTH DAILY Medical Branch COLCHICINE 2022-0 Yes [id number] .6mg TAKE 1 U nivers 0.6 mg 9-19 TABLET BY ity of tablet 00:00: DAILY Medical Branch COLCHICINE 2022-0 Yes [id number] .6mg TAKE 1 U nivers 0.6 mg 9-19 TABLET BY ity of tablet 00:00: DAILY Medical Branch COLCHICINE 2022-0 Yes [id number] .6mg TAKE 1 U nivers 0.6 mg 9-19 TABLET BY ity of tablet 00:00: MOUTH DAILY Medical Branch COLCHICINE 2022-0 Yes [id number] .6mg TAKE 1 U nivers 0.6 mg 9-19 TABLET BY ity of tablet 00:00: [facility] DAILY Medical Branch COLCHICINE 2022-0 Yes [id number] .6mg TAKE 1 U nivers 0.6 mg 9-19 TABLET BY ity of tablet 00:00: DAILY Medical Branch COLCHICINE 2022-0 Yes [id number] .6mg TAKE 1 U nivers 0.6 mg 9-19 TABLET BY ity of tablet 00:00: MOUTH DAILY Medical Branch COLCHICINE 2022-0 Yes [id number] .6mg TAKE 1 U nivers 0.6 mg 9-19 TABLET BY ity of tablet 00:00: [facility] DAILY Medical Branch COLCHICINE 2022-0 Yes [id number] .6mg TAKE 1 U nivers 0.6 mg 9-19 TABLET BY ity of tablet 00:00: MOUTH DAILY Medical Branch COLCHICINE 2022-0 Yes [id number] .6mg TAKE 1 U nivers 0.6 mg 9-19 TABLET BY ity of tablet 00:00: MOUTH DAILY Medical Branch COLCHICINE 2022-0 Yes [id number] .6mg TAKE 1 U nivers 0.6 mg 9-19 TABLET BY ity of tablet 00:00: MOUTH DAILY Medical Branch COLCHICINE 2022-0 Yes [id number] .6mg TAKE 1 U nivers 0.6 mg 9-19 TABLET BY ity of tablet 00:00: MOUTH DAILY Medical Branch COLCHICINE 2022-0 Yes [id number] .6mg TAKE 1 U nivers 0.6 mg 9-19 TABLET BY ity of tablet 00:00: MOUTH DAILY Medical Branch COLCHICINE 2022-0 Yes [id number] .6mg TAKE 1 U nivers 0.6 mg 9-19 TABLET BY ity of tablet 00:00: [facility] DAILY Medical Branch COLCHICINE 2022-0 Yes [id number] .6mg TAKE 1 U nivers 0.6 mg 9-19 TABLET BY ity of tablet 00:00: [facility] DAILY Medical Branch COLCHICINE 2022-0 Yes [id number] .6mg TAKE 1 U nivers 0.6 mg 9-19 TABLET BY ity of tablet 00:00: [facility] DAILY Medical Branch COLCHICINE 2022-0 Yes [id number] .6mg TAKE 1 U nivers 0.6 mg 9-19 TABLET BY ity of tablet 00:00: [facility] DAILY Medical Branch COLCHICINE 2022-0 Yes [id number] .6mg TAKE 1 U nivers 0.6 mg 9-19 TABLET BY ity of tablet 00:00: [facility] DAILY Medical Branch COLCHICINE 2022-0 Yes [id number] .6mg TAKE 1 U nivers 0.6 mg 9-19 TABLET BY ity of tablet 00:00: [facility] DAILY Medical Branch COLCHICINE 2022-0 Yes [id number] .6mg TAKE 1 U nivers 0.6 mg 9-19 TABLET BY ity of tablet 00:00: [facility] DAILY Medical Branch COLCHICINE 2022-0 Yes [id number] .6mg TAKE 1 U nivers 0.6 mg 9-19 TABLET BY ity of tablet 00:00: [facility] DAILY Medical Branch COLCHICINE 2022-0 Yes [id number] .6mg TAKE 1 U nivers 0.6 mg 9-19 TABLET BY ity of tablet 00:00: [facility] DAILY Medical Branch COLCHICINE 2022-0 Yes [id number] .6mg TAKE 1 U nivers 0.6 mg 9-19 TABLET BY ity of tablet 00:00: MOUTH [place] 00 DAILY Medical Branch COLCHICINE 2021-0 Yes [id number] .6mg TAKE 1 U nivers 0.6 mg 9-19 TABLET BY ity of tablet 00:00: MOUTH [place] 00 DAILY Medical Branch COLCHICINE 2021-0 Yes [id number] .6mg TAKE 1 U nivers 0.6 mg 9-19 TABLET BY ity of tablet 00:00: MOUTH [place] 00 DAILY Medical Branch COLCHICINE 2021-0 Yes [id number] .6mg TAKE 1 U nivers 0.6 mg 9-19 TABLET BY ity of tablet 00:00: MOUTH [place] 00 DAILY Medical Branch COLCHICINE 2021-0 Yes [id number] .6mg TAKE 1 U nivers 0.6 mg 9-19 TABLET BY ity of tablet 00:00: MOUTH [place] 00 DAILY Medical Branch COLCHICINE 2021-0 Yes [id number] .6mg TAKE 1 U nivers 0.6 mg 9-19 TABLET BY ity of tablet 00:00: MOUTH [place] 00 DAILY Medical Branch COLCHICINE 2021-0 Yes [id number] .6mg TAKE 1 U nivers 0.6 mg 9-19 TABLET BY ity of tablet 00:00: MOUTH [place] 00 DAILY Medical Branch COLCHICINE 2021-0 3- No [id number] .6mg TAKE 1 Univers 0.6 mg 9-19 [...] for Pain. Indication s: chronic pain HYDROcodone 2021-2- No [id number] 1{tbl} Take 1 U nivers -acetaminop 9-08 10-06 tablet by it y of hen 7.5-325 00:00: 00:00 [place] mg per 00 :00 every 6 Medical tablet (six) Branch hours as needed for Pain. Indication s: chronic pain HYDRALAZINE 2021-0 Yes [id number] TAKE 1 [facility] 100 mg 9-06 TABLET BY ity of tablet 00:00: MOUTH [place] 00 THREE Medical TIMES Branch DAILY HYDRALAZINE 2021-0 Yes [id number] TAKE 1 [facility] 100 mg 9-06 TABLET BY ity of tablet 00:00: MOUTH [place] 00 THREE Medical TIMES Branch DAILY HYDRALAZINE 2021-0 Yes [id number] TAKE 1 [facility] 100 mg 9-06 TABLET BY ity of tablet 00:00: MOUTH [place] 00 THREE Medical TIMES Branch DAILY HYDRALAZINE 2021-0 Yes [id number] TAKE 1 [facility] 100 mg 9-06 TABLET BY ity of tablet 00:00: MOUTH [place] 00 THREE Medical TIMES Branch DAILY HYDRALAZINE 2021-0 Yes [id number] TAKE 1 [facility] 100 mg 9-06 TABLET BY ity of tablet 00:00: MOUTH [place] 00 THREE Medical TIMES Branch DAILY HYDRALAZINE 2021-0 Yes [id number] TAKE 1 [facility] 100 mg 9-06 TABLET BY ity of tablet 00:00: MOUTH [place] 00 THREE Medical TIMES Branch DAILY HYDRALAZINE 2021-0 2- No [id number] TAKE 1 [facility] 100 mg 9-06 10-05 TABLET BY ity of tablet 00:00: 00:00 MOUTH [place] 00 :00 THREE Medical TIMES Branch DAILY GABAPENTIN 2021-0 Yes [id number] TAKE 1 [facility] 600 mg 8-31 TABLET BY ity of tablet 00:00: MOUTH [place] 00 THREE Medical TIMES Branch DAILY GABAPENTIN 2-0 Yes [id number] TAKE 1 [facility] 600 mg 8-31 TABLET BY ity of tablet 00:00: MOUTH [place] 00 THREE Medical TIMES Branch DAILY GABAPENTIN 2021-0 Yes [id number] TAKE 1 [facility] 600 mg 8-31 TABLET BY ity of tablet 00:00: MOUTH [place] 00 THREE Medical TIMES Branch DAILY GABAPENTIN 2021-0 Yes [id number] TAKE 1 [facility] 600 mg 8-31 TABLET BY ity of tablet 00:00: MOUTH [place] 00 THREE Medical TIMES Branch DAILY GABAPENTIN 2021-0 2- No [id number] TAKE 1 Univers 600 mg 8-31 09-26 [...] No TAKE 1 Univ ers TARTRATE 8-22 - TABLET BY ity o f 100 mg 00:00: 00:00 MOUTH [place] tablet 00 :00 TWICE Medical DAILY Branch LISINOPRIL 2022-0 Yes [id number] TAKE 1/2 Univers 40 mg 8-08 TABLET [...] Indication s: chronic pain LISINOPRIL 2-0 Yes [id number] TAKE 1/2 Univers 40 mg 8-08 TABLET BY ity of tablet 00:00: MOUTH [place] 00 TWICE Medical DAILY Branch HYDROcodone 2-0 Yes [id number] 1{tbl} Take 1 Un ally -acetaminop 8-08 tablet by ity of hen 7.5-325 00:00: mouth [place] mg per 00 every 6 Medical tablet (six) Branch hours as needed for Pain. Indication s: chronic pain LISINOPRIL 2-0 Yes [id number] TAKE 1/2 Univers 40 mg 8-08 TABLET BY ity of tablet 00:00: MOUTH [place] 00 TWICE Medical DAILY Branch HYDROcodone 2-0 Yes [id number] 1{tbl} Take 1 Un ally -acetaminop 8-08 tablet by ity of hen 7.5-325 00:00: mouth [place] mg per 00 every 6 Medical tablet (six) Branch hours as needed for Pain. Indication s: chronic pain LISINOPRIL 2022-0 Yes [id number] TAKE 1/2 Univers 40 mg 8-08 TABLET BY ity of tablet 00:00: MOUTH [place] 00 TWICE Medical DAILY Branch LISINOPRIL 2022-0 Yes [id number] TAKE 1/2 Univers 40 mg 8-08 TABLET BY ity of tablet 00:00: MOUTH [place] 00 TWICE Medical DAILY Branch LISINOPRIL 2022-0 Yes [id number] TAKE 1/2 Univers 40 mg 8-08 TABLET BY ity of tablet 00:00: MOUTH TWICE Medical DAILY Branch LISINOPRIL 2022-0 Yes [id number] TAKE 1/2 Univers 40 mg 8-08 TABLET BY ity of tablet 00:00: MOUTH TWICE Medical DAILY Branch LISINOPRIL 2022-0 Yes [id number] TAKE 1/2 Univers 40 mg 8-08 TABLET BY ity of tablet 00:00: MOUTH TWICE Medical DAILY Branch LISINOPRIL 2022-0 Yes [id number] TAKE 1/2 Univers 40 mg 8-08 TABLET BY ity of tablet 00:00: MOUTH TWICE Medical DAILY Branch LISINOPRIL 2022-0 Yes [id number] TAKE 1/2 Univers 40 mg 8-08 TABLET BY ity of tablet 00:00: MOUTH TWICE Medical DAILY Branch LISINOPRIL 2022-0 Yes [id number] TAKE 1/2 Univers 40 mg 8-08 TABLET BY ity of tablet 00:00: TWICE Medical DAILY Branch LISINOPRIL 2022-0 Yes [id number] TAKE 1/2 Univers 40 mg 8-08 TABLET BY ity of tablet 00:00: MOUTH TWICE Medical DAILY Branch LISINOPRIL 2022-0 Yes [id number] TAKE 1/2 [facility] 40 mg 8-08 TABLET BY ity of tablet 00:00: MOUTH TWICE Medical DAILY Branch LISINOPRIL 2022-0 Yes [id number] TAKE 1/2 [facility] 40 mg 8-08 TABLET BY ity of tablet 00:00: TWICE Medical DAILY Branch LISINOPRIL 2022-0 Yes [id number] TAKE 1/2 [facility] 40 mg 8-08 TABLET BY ity of tablet 00:00: MOUTH TWICE Medical DAILY Branch LISINOPRIL 2022-0 Yes [id number] TAKE 1/2 [facility] 40 mg 8-08 TABLET BY ity of tablet 00:00: MOUTH TWICE Medical DAILY Branch LISINOPRIL 2022-0 Yes [id number] TAKE 1/2 [facility] 40 mg 8-08 TABLET BY ity of tablet 00:00: MOUTH TWICE Medical DAILY Branch LISINOPRIL 2022-0 Yes [id number] TAKE 1/2 [facility] 40 mg 8-08 TABLET BY ity of tablet 00:00: MOUTH TWICE Medical DAILY Branch LISINOPRIL 2022-0 Yes [id number] TAKE 1/2 [facility] 40 mg 8-08 TABLET BY ity of tablet 00:00: MOUTH [place] 00 TWICE Medical DAILY Branch LISINOPRIL Yes [id number] TAKE 1/2 [facility] 40 mg 8-08 TABLET BY ity of tablet 00:00: MOUTH [place] 00 TWICE Medical DAILY Branch LISINOPRIL 0 2021- No [id number] TAKE 1/2 [facility] 40 mg 8-08 11- TABLET BY ity of tablet 00:00: 00:00 MOUTH [place] 00 :00 TWICE Medical DAILY Branch HYDROcodone 2021- No [id number] 1{tbl} Take 1 U nivers -acetaminop 8-08 tablet by it y of hen 7.5-325 00:00: 00:00 mouth [place] mg per 00 :00 every 6 Medical tablet (six) Branch hours as needed for Pain. Indication s: chronic pain HUMULIN Yes [id number] ADMINISTER Univers 70/30 U-100 8-03 70 UNITS ity of INSULIN 100 00:00: [place]ER [place] unit/mL 00 SKIN EVERY Medica l (70-30) MORNING Branch suspension THEN ADMINISTER 60 UNITS UNDER THE SKIN EVERY EVENING HUMULIN Yes [id number] ADMINISTER Univers 70/30 U-100 8-03 70 UNITS ity of INSULIN 100 00:00: UNDER THE [place] unit/mL 00 SKIN EVERY Medica l (70-30) MORNING Branch suspension THEN ADMINISTER 60 UNITS UNDER THE SKIN EVERY EVENING GABAPENTIN Yes [id number] TAKE 1 [facility] 600 mg 8-03 TABLET BY ity of tablet 00:00: MOUTH [place] 00 THREE Medical TIMES Branch DAILY HUMULIN Yes [id number] ADMINISTER Univers 70/30 U-100 8-03 70 UNITS ity of INSULIN 100 00:00: UNDER [place] unit/mL 00 SKIN EVERY Medica l (70-30) MORNING Branch suspension THEN ADMINISTER 60 UNITS UNDER THE SKIN EVERY EVENING GABAPENTIN Yes [id number] TAKE 1 [facility] 600 mg 8-03 TABLET BY ity of tablet 00:00: MOUTH [place] 00 THREE Medical TIMES Branch DAILY HUMULIN Yes [id number] ADMINISTER Univers 70/30 U-100 8-03 70 UNITS ity of INSULIN 100 00:00: UNDER THE [place] unit/mL 00 SKIN EVERY Medica l (70-30) MORNING Branch suspension THEN ADMINISTER 60 UNITS UNDER THE SKIN EVERY EVENING GABAPENTIN Yes [id number] TAKE 1 [facility] 600 mg 8-03 TABLET BY ity of tablet 00:00: MOUTH THREE Medical TIMES Branch DAILY HUMULIN Yes [id number] ADMINISTER Univers 70/30 U-100 8-03 70 UNITS ity of INSULIN 100 00:00: UNDER THE [place] unit/mL 00 SKIN EVERY Medica l (70-30) MORNING Branch suspension THEN ADMINISTER 60 UNITS UNDER THE SKIN EVERY EVENING GABAPENTIN Yes [id number] TAKE 1 [facility] 600 mg 8-03 TABLET BY ity of tablet 00:00: MOUTH THREE Medical TIMES Branch DAILY HUMULIN Yes [id number] ADMINISTER Univers 70/30 U-100 8-03 70 UNITS ity of INSULIN 100 00:00: UNDER [place] unit/mL 00 SKIN EVERY Medica l (70-30) MORNING Branch suspension THEN ADMINISTER 60 UNITS UNDER THE SKIN EVERY EVENING HUMULIN Yes [id number] ADMINISTER Univers 70/30 U-100 8-03 70 UNITS ity of INSULIN 100 00:00: UNDER THE [place] unit/mL 00 SKIN EVERY Medica l (70-30) MORNING Branch suspension THEN ADMINISTER 60 UNITS UNDER THE SKIN EVERY EVENING HUMULIN Yes [id number] ADMINISTER Univers 70/30 U-100 8-03 70 UNITS ity of INSULIN 100 00:00: UNDER THE [place] unit/mL 00 SKIN EVERY Medica l (70-30) MORNING Branch suspension THEN ADMINISTER 60 UNITS UNDER THE SKIN EVERY EVENING HUMULIN Yes [id number] ADMINISTER Univers 70/30 U-100 8-03 70 UNITS ity of INSULIN 100 00:00: UNDER THE [place] unit/mL 00 SKIN EVERY Medica l (70-30) MORNING Branch suspension THEN ADMINISTER 60 UNITS UNDER THE SKIN EVERY EVENING HUMULIN Yes [id number] ADMINISTER Univers 70/30 U-100 8-03 70 UNITS ity of INSULIN 100 00:00: UNDER THE [place] unit/mL 00 SKIN EVERY Medica l (70-30) MORNING Branch suspension THEN ADMINISTER 60 UNITS UNDER THE SKIN EVERY EVENING HUMULIN Yes [id number] ADMINISTER Univers 70/30 U-100 8-03 70 UNITS ity of INSULIN 100 00:00: UNDER THE [place] unit/mL 00 SKIN EVERY Medica l (70-30) MORNING Branch suspension THEN ADMINISTER 60 UNITS UNDER THE SKIN EVERY EVENING HUMULIN Yes [id number] ADMINISTER Univers 70/30 U-100 8-03 70 UNITS ity of INSULIN 100 00:00: UNDER THE [place] unit/mL 00 SKIN EVERY Medica l (70-30) MORNING Branch suspension THEN ADMINISTER 60 UNITS UNDER THE SKIN EVERY EVENING HUMULIN Yes [id number] ADMINISTER Univers 70/30 U-100 8-03 70 UNITS ity of INSULIN 100 00:00: UNDER THE [place] unit/mL 00 SKIN EVERY Medica l (70-30) MORNING Branch suspension THEN ADMINISTER 60 UNITS UNDER THE SKIN EVERY EVENING HUMULIN Yes [id number] ADMINISTER Univers 70/30 U-100 8-03 70 UNITS ity of INSULIN 100 00:00: UNDER THE [place] unit/mL 00 SKIN EVERY Medica l (70-30) MORNING Branch suspension THEN ADMINISTER 60 UNITS UNDER THE SKIN EVERY EVENING HUMULIN Yes [id number] ADMINISTER Univers 70/30 U-100 8-03 70 UNITS ity of INSULIN 100 00:00: UNDER THE [place] unit/mL 00 SKIN EVERY Medica l (70-30) MORNING Branch suspension THEN ADMINISTER 60 UNITS UNDER THE SKIN EVERY EVENING HUMULIN Yes [id number] ADMINISTER Univers 70/30 U-100 8-03 70 UNITS ity of INSULIN 100 00:00: UNDER THE [place] unit/mL 00 SKIN EVERY Medica l (70-30) MORNING Branch suspension THEN ADMINISTER 60 UNITS UNDER THE SKIN EVERY EVENING HUMULIN Yes [id number] ADMINISTER Univers 70/30 U-100 8-03 70 UNITS ity of INSULIN 100 00:00: UNDER THE [place] unit/mL 00 SKIN EVERY Medica l (70-30) MORNING Branch suspension THEN ADMINISTER 60 UNITS UNDER THE SKIN EVERY EVENING HUMULIN Yes [id number] ADMINISTER Univers 70/30 U-100 8-03 70 UNITS ity of INSULIN 100 00:00: UNDER THE [place] unit/mL 00 SKIN EVERY Medica l (70-30) MORNING Branch suspension THEN ADMINISTER 60 UNITS UNDER THE SKIN EVERY EVENING HUMULIN Yes [id number] ADMINISTER Univers 70/30 U-100 8-03 70 UNITS ity of INSULIN 100 00:00: UNDER THE [place] unit/mL 00 SKIN EVERY Medica l (70-30) MORNING Branch suspension THEN ADMINISTER 60 UNITS UNDER THE SKIN EVERY EVENING HUMULIN Yes [id number] ADMINISTER Univers 70/30 U-100 8-03 70 UNITS ity of INSULIN 100 00:00: UNDER THE [place] unit/mL 00 SKIN EVERY Medica l (70-30) MORNING Branch suspension THEN ADMINISTER 60 UNITS UNDER THE SKIN EVERY EVENING HUMULIN Yes [id number] ADMINISTER Univers 70/30 U-100 8-03 70 UNITS ity of INSULIN 100 00:00: UNDER THE [place] unit/mL 00 SKIN EVERY Medica l (70-30) MORNING Branch suspension THEN ADMINISTER 60 UNITS UNDER THE SKIN EVERY EVENING HUMULIN Yes [id number] ADMINISTER Univers 70/30 U-100 8-03 70 UNITS ity of INSULIN 100 00:00: UNDER THE [place] unit/mL 00 SKIN EVERY Medica l (70-30) MORNING Branch suspension THEN ADMINISTER 60 UNITS UNDER THE SKIN EVERY EVENING HUMULIN Yes [id number] ADMINISTER Univers 70/30 U-100 8-03 70 UNITS ity of INSULIN 100 00:00: UNDER THE [place] unit/mL 00 SKIN EVERY Medica l (70-30) MORNING Branch suspension THEN ADMINISTER 60 UNITS UNDER THE SKIN EVERY EVENING HUMULIN Yes [id number] ADMINISTER Univers 70/30 U-100 8-03 70 UNITS ity of INSULIN 100 00:00: UNDER THE [place] unit/mL 00 SKIN EVERY Medica l (70-30) MORNING Branch suspension THEN ADMINISTER 60 UNITS UNDER THE SKIN EVERY EVENING HUMULIN Yes [id number] ADMINISTER Univers 70/30 U-100 8-03 70 UNITS ity of INSULIN 100 00:00: UNDER THE [place] unit/mL 00 SKIN EVERY Medica l (70-30) MORNING Branch suspension THEN ADMINISTER 60 UNITS UNDER THE SKIN EVERY EVENING HUMULIN Yes [id number] ADMINISTER Univers 70/30 U-100 8-03 70 UNITS ity of INSULIN 100 00:00: UNDER THE [place] unit/mL 00 SKIN EVERY Medica l (70-30) MORNING Branch suspension THEN ADMINISTER 60 UNITS UNDER THE SKIN EVERY EVENING HUMULIN Yes [id number] ADMINISTER Univers 70/30 U-100 8-03 70 UNITS ity of INSULIN 100 00:00: UNDER THE [place] unit/mL 00 SKIN EVERY Medica l (70-30) MORNING Branch suspension THEN ADMINISTER 60 UNITS UNDER THE SKIN EVERY EVENING HUMULIN Yes [id number] ADMINISTER Univers 70/30 U-100 8-03 70 UNITS ity of INSULIN 100 00:00: UNDER THE [place] unit/mL 00 SKIN EVERY Medica l (70-30) MORNING Branch suspension THEN ADMINISTER 60 UNITS UNDER THE SKIN EVERY EVENING HUMULIN Yes [id number] ADMINISTER [facility] 70/30 U-100 8-03 70 UNITS ity of INSULIN 100 00:00: UNDER THE [place] unit/mL 00 SKIN EVERY Medica l (70-30) MORNING Branch suspension THEN ADMINISTER 60 UNITS UNDER THE SKIN EVERY EVENING HUMULIN Yes [id number] ADMINISTER [facility] 70/30 U-100 8-03 70 UNITS ity of INSULIN 100 00:00: UNDER THE [place] unit/mL 00 SKIN EVERY Medica l (70-30) MORNING Branch suspension THEN ADMINISTER 60 UNITS UNDER THE SKIN EVERY EVENING HUMULIN Yes [id number] ADMINISTER Univers 70/30 U-100 8-03 70 UNITS ity of INSULIN 100 00:00: UNDER THE [place] unit/mL 00 SKIN EVERY Medica l (70-30) MORNING Branch suspension THEN ADMINISTER 60 UNITS UNDER THE SKIN EVERY EVENING HUMULIN Yes [id number] ADMINISTER Univers 70/30 U-100 8-03 70 UNITS ity of INSULIN 100 00:00: UNDER THE [place] unit/mL 00 SKIN EVERY Medica l (70-30) MORNING Branch suspension THEN ADMINISTER 60 UNITS UNDER THE SKIN EVERY EVENING HUMULIN Yes [id number] ADMINISTER [facility] 70/30 U-100 8-03 70 UNITS ity of INSULIN 100 00:00: UNDER THE [place] unit/mL 00 SKIN EVERY Medica l (70-30) MORNING Branch suspension THEN ADMINISTER 60 UNITS UNDER THE SKIN EVERY EVENING HUMULIN Yes [id number] ADMINISTER Univers 70/30 U-100 8-03 70 UNITS ity of INSULIN 100 00:00: UNDER THE [place] unit/mL 00 SKIN EVERY Medica l (70-30) MORNING Branch suspension THEN ADMINISTER 60 UNITS UNDER THE SKIN EVERY EVENING HUMULIN Yes [id number] ADMINISTER [facility] 70/30 U-100 8-03 70 UNITS ity of INSULIN 100 00:00: UNDER THE [place] unit/mL 00 SKIN EVERY Medica l (70-30) MORNING Branch suspension THEN ADMINISTER 60 UNITS UNDER THE SKIN EVERY EVENING HUMULIN Yes [id number] ADMINISTER [facility] 70/30 U-100 8-03 70 UNITS ity of INSULIN 100 00:00: UNDER THE [place] unit/mL 00 SKIN EVERY Medica l (70-30) MORNING Branch suspension THEN ADMINISTER 60 UNITS UNDER THE SKIN EVERY EVENING HUMULIN Yes [id number] ADMINISTER [facility] 70/30 U-100 8-03 70 UNITS ity of INSULIN 100 00:00: UNDER THE [place] unit/mL 00 SKIN EVERY Medica l (70-30) MORNING Branch suspension THEN ADMINISTER 60 UNITS UNDER THE SKIN EVERY EVENING HUMULIN Yes [id number] ADMINISTER [facility] 70/30 U-100 8-03 70 UNITS ity of INSULIN 100 00:00: UNDER THE [place] unit/mL 00 SKIN EVERY Medica l (70-30) MORNING Branch suspension THEN ADMINISTER 60 UNITS UNDER THE SKIN EVERY EVENING HUMULIN Yes [id number] ADMINISTER [facility] 70/30 U-100 8-03 70 UNITS ity of INSULIN 100 00:00: UNDER THE [place] unit/mL 00 SKIN EVERY Medica l (70-30) MORNING Branch suspension THEN ADMINISTER 60 UNITS UNDER THE SKIN EVERY EVENING HUMULIN Yes [id number] ADMINISTER [facility] 70/30 U-100 8-03 70 UNITS ity of INSULIN 100 00:00: UNDER THE [place] unit/mL 00 SKIN EVERY Medica l (70-30) MORNING Branch suspension THEN ADMINISTER 60 UNITS UNDER THE SKIN EVERY EVENING HUMULIN Yes [id number] ADMINISTER [facility] 70/30 U-100 8-03 70 UNITS ity of INSULIN 100 00:00: UNDER THE [place] unit/mL 00 SKIN EVERY Medica l (70-30) MORNING Branch suspension THEN ADMINISTER 60 UNITS UNDER THE SKIN EVERY EVENING HUMULIN Yes [id number] ADMINISTER [facility] 70/30 U-100 8-03 70 UNITS ity of INSULIN 100 00:00: UNDER THE [place] unit/mL 00 SKIN EVERY Medica l (70-30) MORNING Branch suspension THEN ADMINISTER 60 UNITS UNDER THE SKIN EVERY EVENING HUMULIN Yes [id number] ADMINISTER [facility] 70/30 U-100 8-03 70 UNITS ity of INSULIN 100 00:00: UNDER THE [place] unit/mL 00 SKIN EVERY Medica l (70-30) MORNING Branch suspension THEN ADMINISTER 60 UNITS UNDER THE SKIN EVERY EVENING HUMULIN Yes [id number] ADMINISTER [facility] 70/30 U-100 8-03 70 UNITS ity of INSULIN 100 00:00: UNDER THE [place] unit/mL 00 SKIN EVERY Medica l (70-30) MORNING Branch suspension THEN ADMINISTER 60 UNITS UNDER THE SKIN EVERY EVENING HUMULIN Yes [id number] ADMINISTER [facility] 70/30 U-100 8-03 70 UNITS ity of INSULIN 100 00:00: UNDER THE [place] unit/mL 00 SKIN EVERY Medica l (70-30) MORNING Branch suspension THEN ADMINISTER 60 UNITS UNDER THE SKIN EVERY EVENING HUMULIN Yes [id number] ADMINISTER [facility] 70/30 U-100 8-03 70 UNITS ity of INSULIN 100 00:00: UNDER THE [place] unit/mL 00 SKIN EVERY Medica l (70-30) MORNING Branch suspension THEN ADMINISTER 60 UNITS UNDER THE SKIN EVERY EVENING HUMULIN Yes [id number] ADMINISTER [facility] 70/30 U-100 8-03 70 UNITS ity of INSULIN 100 00:00: [place] THE [place] unit/mL 00 SKIN EVERY Medica l (70-30) MORNING Branch suspension THEN ADMINISTER 60 UNITS UNDER THE SKIN EVERY EVENING HUMULIN Yes [id number] ADMINISTER [facility] 70/30 U-100 8-03 70 UNITS ity of INSULIN 100 00:00: [place] THE [place] unit/mL 00 SKIN EVERY Medica l (70-30) MORNING Branch suspension THEN ADMINISTER 60 UNITS UNDER THE SKIN EVERY EVENING HUMULIN Yes [id number] ADMINISTER [facility] 70/30 U-100 8-03 70 UNITS ity of INSULIN 100 00:00: [place] THE [place] unit/mL 00 SKIN EVERY Medica l (70-30) MORNING Branch suspension THEN ADMINISTER 60 UNITS UNDER THE SKIN EVERY EVENING HUMULIN Yes [id number] ADMINISTER [facility] 70/30 U-100 8-03 70 UNITS ity of INSULIN 100 00:00: [place] THE [place] unit/mL 00 SKIN EVERY Medica l (70-30) MORNING Branch suspension THEN ADMINISTER 60 UNITS UNDER THE SKIN EVERY EVENING HUMULIN Yes [id number] ADMINISTER [facility] 70/30 U-100 8-03 70 UNITS ity of INSULIN 100 00:00: [place] THE [place] unit/mL 00 SKIN EVERY Medica l (70-30) MORNING Branch suspension THEN ADMINISTER 60 UNITS UNDER THE SKIN EVERY EVENING HUMULIN Yes [id number] ADMINISTER [facility] 70/30 U-100 06-03 70 UNITS ity of INSULIN 100 00:00: [place] THE [place] unit/mL 00 SKIN EVERY Medica l (70-30) MORNING Branch suspension THEN ADMINISTER 60 UNITS UNDER THE SKIN EVERY EVENING HUMULIN Yes [id number] ADMINISTER [facility] 70/30 U-100 06-03 70 UNITS ity of INSULIN 100 00:00: [place] THE [place] unit/mL 00 SKIN EVERY Medica l (70-30) MORNING Branch suspension THEN ADMINISTER 60 UNITS UNDER THE SKIN EVERY EVENING GABAPENTIN 2021- No [id number] TAKE 1 [facility] 600 mg 06-03 TABLET BY ity of tablet 00:00: 00:00 MOUTH [place] 00 :00 THREE Medical TIMES Branch DAILY HYDROCHLORO 0 Yes [id number] 12.5mg TAKE 1 [facility] THIAZIDE 7-18 CAPSULE BY ity o f 12.5 mg 00:00: MOUTH [place] capsule 00 DAILY Medical Branch HYDROCHLORO 0 Yes [id number] 12.5mg TAKE 1 [facility] THIAZIDE 7-18 CAPSULE BY ity o f 12.5 mg 00:00: MOUTH [place] capsule 00 DAILY Medical Branch HYDROCHLORO 0 Yes [id number] 12.5mg TAKE 1 [facility] THIAZIDE 7-18 CAPSULE BY ity o f 12.5 mg 00:00: MOUTH [place] capsule 00 DAILY Medical Branch HYDROCHLORO 0 Yes [id number] 12.5mg TAKE 1 [facility] THIAZIDE 7-18 CAPSULE BY ity o f 12.5 mg 00:00: MOUTH [place] capsule 00 DAILY Medical Branch HYDROCHLORO 2021-0 Yes [id number] 12.5mg TAKE 1 [facility] THIAZIDE 7-18 CAPSULE BY ity o f 12.5 mg 00:00: MOUTH [place] capsule 00 DAILY Medical Branch HYDROCHLORO 0 Yes [id number] 12.5mg TAKE 1 [facility] THIAZIDE 7-18 CAPSULE BY ity o f 12.5 mg 00:00: MOUTH [place] capsule 00 DAILY [facility] HYDROCHLORO 0 Yes [id number] 12.5mg TAKE 1 [facility] THIAZIDE 7-18 CAPSULE BY ity o f 12.5 mg 00:00: MOUTH [place] capsule 00 DAILY Medical Branch HYDROCHLORO 2022-0 Yes [id number] 12.5mg TAKE 1 [facility] THIAZIDE 7-18 CAPSULE BY ity o f 12.5 mg 00:00: MOUTH [place] capsule 00 DAILY [facility] HYDROCHLORO 2022-0 Yes [id number] 12.5mg TAKE 1 [facility] THIAZIDE 7-18 CAPSULE BY ity o f 12.5 mg 00:00: MOUTH [place] capsule 00 DAILY [facility] HYDROCHLORO 2022-0 Yes [id number] 12.5mg TAKE 1 [facility] THIAZIDE 7-18 CAPSULE BY ity o f 12.5 mg 00:00: MOUTH [place] capsule 00 DAILY [facility] HYDROCHLORO 2022-0 Yes [id number] 12.5mg TAKE 1 [facility] THIAZIDE 7-18 CAPSULE BY ity o f 12.5 mg 00:00: MOUTH [place] capsule 00 DAILY [facility] HYDROCHLORO 2022-0 Yes [id number] 12.5mg TAKE 1 [facility] THIAZIDE 7-18 CAPSULE BY ity o f 12.5 mg 00:00: MOUTH [place] capsule 00 DAILY [facility] HYDROCHLORO 2022-0 Yes [id number] 12.5mg TAKE 1 [facility] THIAZIDE 7-18 CAPSULE BY ity o f 12.5 mg 00:00: MOUTH [place] capsule 00 DAILY [facility] HYDROCHLORO 2022-0 Yes [id number] 12.5mg TAKE 1 [facility] THIAZIDE 7-18 CAPSULE BY ity o f 12.5 mg 00:00: MOUTH [place] capsule 00 DAILY [facility] HYDROCHLORO 2022-0 Yes [id number] 12.5mg TAKE 1 [facility] THIAZIDE 7-18 CAPSULE BY ity o f 12.5 mg 00:00: MOUTH [place] capsule 00 DAILY [facility] HYDROCHLORO 2022-0 Yes [id number] 12.5mg TAKE 1 [facility] THIAZIDE 7-18 CAPSULE BY ity o f 12.5 mg 00:00: MOUTH [place] capsule 00 DAILY [facility] HYDROCHLORO 2022-0 Yes [id number] 12.5mg TAKE 1 [facility] THIAZIDE 7-18 CAPSULE BY ity o f 12.5 mg 00:00: MOUTH [place] capsule 00 DAILY [facility] HYDROCHLORO 2022-0 Yes [id number] 12.5mg TAKE 1 [facility] THIAZIDE 7-18 CAPSULE BY ity o f 12.5 mg 00:00: MOUTH [place] capsule 00 DAILY [facility] HYDROCHLORO 2022-0 Yes [id number] 12.5mg TAKE 1 [facility] THIAZIDE 7-18 CAPSULE BY ity o f 12.5 mg 00:00: MOUTH [place] capsule 00 DAILY [facility] HYDROCHLORO 2022-0 Yes [id number] 12.5mg TAKE 1 [facility] THIAZIDE 7-18 CAPSULE BY ity o f 12.5 mg 00:00: MOUTH [place] capsule 00 DAILY [facility] HYDROCHLORO 2022-0 Yes [id number] 12.5mg TAKE 1 [facility] THIAZIDE 7-18 CAPSULE BY ity o f 12.5 mg 00:00: MOUTH [place] capsule 00 DAILY [facility] HYDROCHLORO 2022-0 Yes [id number] 12.5mg TAKE 1 [facility] THIAZIDE 7-18 CAPSULE BY ity o f 12.5 mg 00:00: MOUTH [place] capsule 00 DAILY [facility] HYDROCHLORO 2022-0 Yes [id number] 12.5mg TAKE 1 [facility] THIAZIDE 7-18 CAPSULE BY ity o f 12.5 mg 00:00: MOUTH [place] capsule 00 DAILY [facility] HYDROCHLORO 2022-0 Yes [id number] 12.5mg TAKE 1 [facility] THIAZIDE 7-18 CAPSULE BY ity o f 12.5 mg 00:00: MOUTH [place] capsule 00 DAILY Medical [facility] HYDROCHLORO 2022-0 Yes [id number] 12.5mg TAKE 1 [facility] THIAZIDE 7-18 CAPSULE BY ity o f 12.5 mg 00:00: MOUTH [place] capsule 00 DAILY Medical [facility] HYDROCHLORO 2022-0 Yes [id number] 12.5mg TAKE 1 [facility] THIAZIDE 7-18 CAPSULE BY ity o f 12.5 mg 00:00: MOUTH [place] capsule 00 DAILY [facility] HYDROCHLORO 2022-0 Yes [id number] 12.5mg TAKE 1 [facility] THIAZIDE 7-18 CAPSULE BY ity o f 12.5 mg 00:00: MOUTH [place] capsule 00 DAILY [facility] HYDROCHLORO 2022-0 Yes [id number] 12.5mg TAKE 1 [facility] THIAZIDE 7-18 CAPSULE BY ity o f 12.5 mg 00:00: MOUTH [place] capsule 00 DAILY [facility] HYDROCHLORO 2022-0 Yes [id number] 12.5mg TAKE 1 [facility] THIAZIDE 7-18 CAPSULE BY ity o f 12.5 mg 00:00: MOUTH [place] capsule 00 DAILY [facility] HYDROCHLORO 2022-0 Yes [id number] 12.5mg TAKE 1 [facility] THIAZIDE 7-18 CAPSULE BY ity o f 12.5 mg 00:00: MOUTH [place] capsule 00 DAILY Medical [facility] HYDROCHLORO 2-0 Yes [id number] 12.5mg TAKE 1 [facility] THIAZIDE 7-18 CAPSULE BY ity o f 12.5 mg 00:00: MOUTH [place] capsule 00 DAILY [facility] HYDROCHLORO 2021-0 Yes [id number] 12.5mg TAKE 1 [facility] THIAZIDE 7-18 CAPSULE BY ity o f 12.5 mg 00:00: MOUTH [place] capsule 00 DAILY [facility] HYDROCHLORO 2021-0 Yes [id number] 12.5mg TAKE 1 [facility] THIAZIDE 7-18 CAPSULE BY ity o f 12.5 mg 00:00: MOUTH [place] capsule 00 DAILY [facility] HYDROCHLORO 2021-0 Yes [id number] 12.5mg TAKE 1 [facility] THIAZIDE 7-18 CAPSULE BY ity o f 12.5 mg 00:00: MOUTH [place] capsule 00 DAILY [facility] HYDROCHLORO 2021-0 Yes [id number] 12.5mg TAKE 1 [facility] THIAZIDE 7-18 CAPSULE BY ity o f 12.5 mg 00:00: MOUTH [place] capsule 00 DAILY [facility] HYDROCHLORO 2021-0 Yes [id number] 12.5mg TAKE 1 [facility] THIAZIDE 7-18 CAPSULE BY ity o f 12.5 mg 00:00: MOUTH [place] capsule 00 DAILY [facility] HYDROCHLORO 2021-0 Yes [id number] 12.5mg TAKE 1 [facility] THIAZIDE 7-18 CAPSULE BY ity o f 12.5 mg 00:00: MOUTH [place] capsule 00 DAILY [facility] HYDROCHLORO 2021-0 3- No [id number] 12.5mg TAKE 1 [facility] THIAZIDE 7-18 01-09 CAPSULE BY ity of 12.5 mg 00:00: 00:00 MOUTH [place] capsule 00 :00 DAILY Medical Branch HYDROcodone 2021-0 [...] Medical times Branch daily. GABAPENTIN 2022-0 Yes [id number] TAKE 1 [facility] 600 mg 5-31 TABLET BY ity of tablet 00:00: MOUTH [place] 00 THREE Medical TIMES Branch DAILY GABAPENTIN 2022-0 Yes [id number] TAKE 1 [facility] 600 mg 5-31 TABLET BY ity of tablet 00:00: MOUTH THREE Medical TIMES Branch DAILY GABAPENTIN 2022-0 Yes [id number] TAKE 1 [facility] 600 mg 5-31 TABLET BY ity of tablet 00:00: MOUTH [place] 00 THREE Medical TIMES Branch DAILY GABAPENTIN 2022-0 Yes [id number] TAKE 1 [facility] 600 mg 5-31 TABLET BY ity of tablet 00:00: MOUTH [place] 00 THREE Medical TIMES Branch DAILY GABAPENTIN 2022-0 Yes [id number] TAKE 1 [facility] 600 mg 5-31 TABLET BY ity of tablet 00:00: MOUTH [place] 00 THREE Medical TIMES Branch DAILY [place] 2022-0 2023- No TAKE 1 Uni vers e (AMITIZA) 5-31 03-14 CAPSULE BY i ty of 24 MCG 00:00: 00:00 MOUTH [place] capsule 00 :00 TWICE MD DAILY [facility] 2022- No TAKE 1 Uni vers e (AMITIZA) 03-31 CAPSULE BY i ty of 24 MCG 00:00: 00:00 MOUTH [place] capsule 00 :00 TWICE MD DAILY [facility] 2022- No TAKE 1 Uni vers e (AMITIZA) 03-31 CAPSULE BY i ty of 24 MCG 00:00: 00:00 MOUTH [place] capsule 00 :00 TWICE MD DAILY [facility] 2022- No TAKE 1 Uni vers e (AMITIZA) 03-31 CAPSULE BY i ty of 24 MCG 00:00: 00:00 MOUTH [place] capsule 00 :00 TWICE MD DAILY [facility] 2022- No TAKE 1 Uni vers e (AMITIZA) 03-31 CAPSULE BY i ty of 24 MCG 00:00: 00:00 MOUTH [place] capsule 00 :00 TWICE MD DAILY [facility] 2022- No TAKE 1 Uni vers e (AMITIZA) 03-31 CAPSULE BY i ty of 24 MCG 00:00: 00:00 MOUTH [place] capsule 00 :00 TWICE MD DAILY [facility] 2022- No TAKE 1 [facility] vers e (AMITIZA) 03-31 CAPSULE BY i ty of 24 MCG 00:00: 00:00 MOUTH [place] capsule 00 :00 TWICE MD DAILY [facility] 2022- No TAKE 1 [facility] vers e (AMITIZA) 03-31 CAPSULE BY i ty of 24 MCG 00:00: 00:00 MOUTH [place] capsule 00 :00 TWICE MD DAILY [facility] GABAPENTIN 2021- No [id number] TAKE 1 [facility] 600 mg 03-31 TABLET BY ity of tablet 00:00: 00:00 MOUTH [place] 00 :00 THREE Medical TIMES Branch DAILY Insulin Yes [id number] Use as Uni vers Syringe-Nee 5-18 directed ity of dle U-100 1 00:00: [place] mL 31 x 00 Medical 3/8" Syrg Branch Insulin Yes [id number] Use as Uni vers Syringe-Nee 5-18 directed ity of dle U-100 1 00:00: [place] mL 31 x 00 Medical 3/8" Syrg Branch Insulin 2022-0 Yes [id number] Use as Uni vers Syringe-Nee 5-18 directed ity of dle U-100 1 00:00: [place] mL 31 x 00 Medical 3/8" Syrg Branch Insulin 2022-0 Yes [id number] Use as [facility] vers Syringe-Nee 5-18 directed ity of dle U-100 1 00:00: [place] mL 31 x 00 Medical 3/8" Syrg Branch Insulin 2022-0 Yes [id number] Use as Uni vers Syringe-Nee 5-18 directed ity of dle U-100 1 00:00: [place] mL 31 x 00 Medical 3/8" Syrg Branch Insulin 2022-0 Yes [id number] Use as Uni vers Syringe-Nee 5-18 directed ity of dle U-100 1 00:00: [place] mL 31 x 00 Medical 3/8" Syrg Branch Insulin 2022-0 Yes [id number] Use as Uni vers Syringe-Nee 5-18 directed ity of dle U-100 1 00:00: [place] mL 31 x 00 Medical 3/8" Syrg Branch Insulin 2022-0 Yes [id number] Use as Uni vers Syringe-Nee 5-18 directed ity of dle U-100 1 00:00: [place] mL 31 x 00 Medical 3/8" Syrg Branch Insulin 2022-0 Yes [id number] Use as Uni vers Syringe-Nee 5-18 directed ity of dle U-100 1 00:00: [place] mL 31 x 00 Medical 3/8" Syrg Branch Insulin 2022-0 Yes [id number] Use as Uni vers Syringe-Nee 5-18 directed ity of dle U-100 1 00:00: [place] mL 31 x 00 Medical 3/8" Syrg Branch Insulin 2022-0 Yes [id number] Use as Uni vers Syringe-Nee 5-18 directed ity of dle U-100 1 00:00: [place] mL 31 x 00 Medical 3/8" Syrg Branch Insulin 2022-0 Yes [id number] Use as Uni vers Syringe-Nee 5-18 directed ity of dle U-100 1 00:00: [place] mL 31 x 00 Medical 3/8" Syrg Branch Insulin 2022-0 Yes [id number] Use as Uni vers Syringe-Nee 5-18 directed ity of dle U-100 1 00:00: [place] mL 31 x 00 Medical 3/8" Syrg Branch Insulin 2022-0 Yes [id number] Use as Uni vers Syringe-Nee 5-18 directed ity of dle U-100 1 00:00: [place] mL 31 x 00 Medical 3/8" Syrg Branch Insulin 2022-0 Yes [id number] Use as Uni vers Syringe-Nee 5-18 directed ity of dle U-100 1 00:00: [place] mL 31 x 00 Medical 3/8" Syrg Branch Insulin 2022-0 Yes [id number] Use as Uni vers Syringe-Nee 5-18 directed ity of dle U-100 1 00:00: [place] mL 31 x 00 Medical 3/8" Syrg Branch Insulin 2022-0 Yes [id number] Use as Uni vers Syringe-Nee 5-18 directed ity of dle U-100 1 00:00: [place] mL 31 x 00 Medical 3/8" Syrg Branch Insulin 2022-0 Yes [id number] Use as Uni vers Syringe-Nee 5-18 directed ity of dle U-100 1 00:00: [place] mL 31 x 00 Medical 3/8" Syrg Branch Insulin 2022-0 Yes [id number] Use as Uni vers Syringe-Nee 5-18 directed ity of dle U-100 1 00:00: [place] mL 31 x 00 Medical 3/8" Syrg Branch Insulin 2022-0 Yes [id number] Use as [facility] vers Syringe-Nee 5-18 directed ity of dle U-100 1 00:00: [place] mL 31 x 00 Medical 3/8" Syrg Branch Insulin 2022-0 Yes [id number] Use as Uni vers Syringe-Nee 5-18 directed ity of dle U-100 1 00:00: [place] mL 31 x 00 Medical 3/8" Syrg Branch Insulin 2022-0 Yes [id number] Use as Uni vers Syringe-Nee 5-18 directed ity of dle U-100 1 00:00: [place] mL 31 x 00 Medical 3/8" Syrg Branch Insulin 2022-0 Yes [id number] Use as [facility] vers Syringe-Nee 5-18 directed ity of dle U-100 1 00:00: [place] mL 31 x 00 Medical 3/8" Syrg Branch Insulin 2022-0 Yes [id number] Use as [facility] vers Syringe-Nee 5-18 directed ity of dle U-100 1 00:00: [place] mL 31 x 00 Medical 3/8" Syrg Branch Insulin 2022-0 Yes [id number] Use as [facility] vers Syringe-Nee 5-18 directed ity of dle U-100 1 00:00: [place] mL 31 x 00 Medical 3/8" Syrg Branch Insulin 2022-0 Yes [id number] Use as [facility] vers Syringe-Nee 5-18 directed ity of dle U-100 1 00:00: [place] mL 31 x 00 Medical 3/8" Syrg Branch Insulin 2022-0 Yes [id number] Use as [facility] vers Syringe-Nee 5-18 directed ity of dle U-100 1 00:00: [place] mL 31 x 00 Medical 3/8" Syrg Branch Insulin 2022-0 Yes [id number] Use as [facility] vers Syringe-Nee 5-18 directed ity of dle U-100 1 00:00: [place] mL 31 x 00 Medical 3/8" Syrg Branch Insulin 2022-0 Yes [id number] Use as [facility] vers Syringe-Nee 5-18 directed ity of dle U-100 1 00:00: [place] mL 31 x 00 Medical 3/8" Syrg Branch Insulin 2022-0 Yes [id number] Use as [facility] vers Syringe-Nee 5-18 directed ity of dle U-100 1 00:00: [place] mL 31 x 00 Medical 3/8" Syrg Branch Insulin 2022-0 Yes [id number] Use as [facility] vers Syringe-Nee 5-18 directed ity of dle U-100 1 00:00: [place] mL 31 x 00 Medical 3/8" Syrg Branch Insulin 2022-0 Yes [id number] Use as [facility] vers Syringe-Nee 5-18 directed ity of dle U-100 1 00:00: [place] mL 31 x 00 Medical 3/8" Syrg Branch Insulin 2022-0 Yes [id number] Use as [facility] vers Syringe-Nee 5-18 directed ity of dle U-100 1 00:00: [place] mL 31 x 00 Medical 3/8" Syrg Branch Insulin 2022-0 Yes [id number] Use as [facility] vers Syringe-Nee 5-18 directed ity of dle U-100 1 00:00: [place] mL 31 x 00 Medical 3/8" Syrg Branch Insulin 2022-0 Yes [id number] Use as Uni vers Syringe-Nee 5-18 directed ity of dle U-100 1 00:00: [place] mL 31 x 00 Medical 3/8" Syrg Branch Insulin 2022-0 Yes [id number] Use as Uni vers Syringe-Nee 5-18 directed ity of dle U-100 1 00:00: [place] mL 31 x 00 Medical 3/8" Syrg Branch Insulin 2022-0 Yes [id number] Use as [facility] vers Syringe-Nee 5-18 directed ity of dle U-100 1 00:00: [place] mL 31 x 00 Medical 3/8" Syrg Branch Insulin 2022-0 Yes [id number] Use as Uni vers Syringe-Nee 5-18 directed ity of dle U-100 1 00:00: [place] mL 31 x 00 Medical 3/8" Syrg Branch Insulin 2022-0 Yes [id number] Use as Uni vers Syringe-Nee 5-18 directed ity of dle U-100 1 00:00: [place] mL 31 x 00 Medical 3/8" Syrg Branch Insulin 2022-0 Yes [id number] Use as Uni vers Syringe-Nee 5-18 directed ity of dle U-100 1 00:00: [place] mL 31 x 00 Medical 3/8" Syrg Branch Insulin 2022-0 Yes [id number] Use as [facility] vers Syringe-Nee 5-18 directed ity of dle U-100 1 00:00: [place] mL 31 x 00 Medical 3/8" Syrg Branch Insulin 2022-0 Yes [id number] Use as [facility] vers Syringe-Nee 5-18 directed ity of dle U-100 1 00:00: [place] mL 31 x 00 Medical 3/8" Syrg Branch Insulin 2022-0 Yes [id number] Use as Uni vers Syringe-Nee 5-18 directed ity of dle U-100 1 00:00: [place] mL 31 x 00 Medical 3/8" Syrg Branch Insulin 2022-0 Yes [id number] Use as [facility] vers Syringe-Nee 5-18 directed ity of dle U-100 1 00:00: [place] mL 31 x 00 Medical 3/8" Syrg Branch Insulin 2022-0 Yes [id number] Use as Uni vers Syringe-Nee 5-18 directed ity of dle U-100 1 00:00: [place] mL 31 x 00 Medical 3/8" Syrg Branch Insulin 2022-0 Yes [id number] Use as Uni vers Syringe-Nee 5-18 directed ity of dle U-100 1 00:00: [place] mL 31 x 00 Medical 3/8" Syrg Branch Insulin 2022-0 Yes [id number] Use as Uni vers Syringe-Nee 5-18 directed ity of dle U-100 1 00:00: [place] mL 31 x 00 Medical 3/8" Syrg Branch Insulin 2022-0 Yes [id number] Use as Uni vers Syringe-Nee 5-18 directed ity of dle U-100 1 00:00: [place] mL 31 x 00 Medical 3/8" Syrg Branch Insulin 2022-0 Yes [id number] Use as [facility] vers Syringe-Nee 5-18 directed ity of dle U-100 1 00:00: [place] mL 31 x 00 Medical 3/8" Syrg Branch Insulin 2022-0 Yes [id number] Use as Uni vers Syringe-Nee 5-18 directed ity of dle U-100 1 00:00: [place] mL 31 x 00 Medical 3/8" Syrg Branch Insulin 2022-0 Yes [id number] Use as Uni vers Syringe-Nee 5-18 directed ity of dle U-100 1 00:00: [place] mL 31 x 00 Medical 3/8" Syrg Branch Insulin 2022-0 Yes [id number] Use as Uni vers Syringe-Nee 5-18 directed ity of dle U-100 1 00:00: [place] mL 31 x 00 Medical 3/8" Syrg Branch Insulin 2022-0 Yes [id number] Use as Uni vers Syringe-Nee 5-18 directed ity of dle U-100 1 00:00: [place] mL 31 x 00 Medical 3/8" Syrg Branch Insulin 2022-0 Yes [id number] Use as [facility] vers Syringe-Nee 5-18 directed ity of dle U-100 1 00:00: [place] mL 31 x 00 Medical 3/8" Syrg Branch Insulin 2022-0 Yes [id number] Use as Uni vers Syringe-Nee 5-18 directed ity of dle U-100 1 00:00: [place] mL 31 x 00 Medical 3/8" Syrg Branch Insulin 2022-0 Yes [id number] Use as Uni vers Syringe-Nee 5-18 directed ity of dle U-100 1 00:00: [place] mL 31 x 00 Medical 3/8" Syrg Branch Insulin 2022-0 Yes [id number] Use as Uni vers Syringe-Nee 5-18 directed ity of dle U-100 1 00:00: [place] mL 31 x 00 Medical 3/8" Syrg Branch Insulin 2022-0 Yes [id number] Use as Uni vers Syringe-Nee 5-18 directed ity of dle U-100 1 00:00: [place] mL 31 x 00 Medical 3/8" Syrg Branch METFORMIN 2022-0 Yes [id number] TAKE 1 U nivers 1,000 mg 5-16 TABLET BY ity of tablet 00:00: MOUTH [place] 00 TWICE Medical DAILY WITH Branch MEALS HYDRALAZINE 2021-0 Yes [id number] TAKE 1 [facility] 100 mg 5-16 TABLET BY ity of tablet 00:00: MOUTH [place] 00 THREE Medical TIMES Branch DAILY METFORMIN 2022-0 Yes [id number] TAKE 1 U nivers 1,000 mg 5-16 TABLET BY ity of tablet 00:00: MOUTH [place] 00 TWICE Medical DAILY WITH Branch MEALS HYDRALAZINE 2-0 Yes [id number] TAKE 1 [facility] 100 mg 5-16 TABLET BY ity of tablet 00:00: MOUTH [place] 00 THREE Medical TIMES Branch DAILY METFORMIN 2022-0 Yes [id number] TAKE 1 U nivers 1,000 mg 5-16 TABLET BY ity of tablet 00:00: MOUTH [place] 00 TWICE Medical DAILY WITH Branch MEALS HYDRALAZINE 2-0 Yes [id number] TAKE 1 [facility] 100 mg 5-16 TABLET BY ity of tablet 00:00: MOUTH [place] 00 THREE Medical TIMES Branch DAILY METFORMIN 2022-0 Yes [id number] TAKE 1 U nivers 1,000 mg 5-16 TABLET BY ity of tablet 00:00: MOUTH [place] 00 TWICE Medical DAILY WITH Branch MEALS HYDRALAZINE 2-0 Yes [id number] TAKE 1 [facility] 100 mg 5-16 TABLET BY ity of tablet 00:00: MOUTH THREE Medical TIMES Branch DAILY METFORMIN 2-0 Yes [id number] TAKE 1 U nivers 1,000 mg 5-16 TABLET BY ity of tablet 00:00: MOUTH TWICE Medical DAILY WITH Branch MEALS HYDRALAZINE 2021-0 Yes [id number] TAKE 1 [facility] 100 mg 5-16 TABLET BY ity of tablet 00:00: MOUTH THREE Medical TIMES Branch DAILY METFORMIN 2-0 Yes [id number] TAKE 1 U nivers 1,000 mg 5-16 TABLET BY ity of tablet 00:00: TWICE Medical DAILY WITH Branch MEALS HYDRALAZINE 2021-0 Yes [id number] TAKE 1 [facility] 100 mg 5-16 TABLET BY ity of tablet 00:00: THREE Medical TIMES Branch DAILY METFORMIN 2-0 Yes [id number] TAKE 1 U nivers 1,000 mg 5-16 TABLET BY ity of tablet 00:00: TWICE Medical DAILY WITH Branch MEALS HYDRALAZINE 2021-0 Yes [id number] TAKE 1 [facility] 100 mg 5-16 TABLET BY ity of tablet 00:00: THREE Medical TIMES Branch DAILY METFORMIN 2-0 Yes [id number] TAKE 1 U nivers 1,000 mg 5-16 TABLET BY ity of tablet 00:00: TWICE Medical DAILY WITH Branch MEALS HYDRALAZINE 2-0 Yes [id number] TAKE 1 [facility] 100 mg 5-16 TABLET BY ity of tablet 00:00: THREE Medical TIMES Branch DAILY METFORMIN 2022-0 Yes [id number] TAKE 1 U nivers 1,000 mg 5-16 TABLET BY ity of tablet 00:00: MOUTH TWICE Medical DAILY WITH Branch MEALS HYDRALAZINE 2-0 Yes [id number] TAKE 1 [facility] 100 mg 5-16 TABLET BY ity of tablet 00:00: MOUTH THREE Medical TIMES Branch DAILY METFORMIN 2022-0 Yes [id number] TAKE 1 U nivers 1,000 mg 5-16 TABLET BY ity of tablet 00:00: MOUTH TWICE Medical DAILY WITH Branch MEALS HYDRALAZINE 2-0 Yes [id number] TAKE 1 [facility] 100 mg 5-16 TABLET BY ity of tablet 00:00: MOUTH [place] 00 THREE Medical TIMES Branch DAILY METFORMIN 2022-0 Yes [id number] TAKE 1 U nivers 1,000 mg 5-16 TABLET BY ity of tablet 00:00: MOUTH 00 TWICE Medical DAILY WITH Branch MEALS HYDRALAZINE 2022-0 Yes [id number] TAKE 1 [facility] 100 mg 5-16 TABLET BY ity of tablet 00:00: MOUTH 00 THREE Medical TIMES Branch DAILY METFORMIN 2022-0 Yes [id number] TAKE 1 U nivers 1,000 mg 5-16 TABLET BY ity of tablet 00:00: MOUTH 00 TWICE Medical DAILY WITH Branch MEALS METFORMIN 2022-0 Yes [id number] TAKE 1 U nivers 1,000 mg 5-16 TABLET BY ity of tablet 00:00: MOUTH TWICE Medical DAILY WITH Branch MEALS METFORMIN 2022-0 Yes [id number] TAKE 1 U nivers 1,000 mg 5-16 TABLET BY ity of tablet 00:00: MOUTH 00 TWICE Medical DAILY WITH Branch MEALS METFORMIN 2022-0 Yes [id number] TAKE 1 U nivers 1,000 mg 5-16 TABLET BY ity of tablet 00:00: MOUTH 00 TWICE Medical DAILY WITH Branch MEALS METFORMIN 2022-0 Yes [id number] TAKE 1 U nivers 1,000 mg 5-16 TABLET BY ity of tablet 00:00: MOUTH 00 TWICE Medical DAILY WITH Branch MEALS METFORMIN 2022-0 Yes [id number] TAKE 1 U nivers 1,000 mg 5-16 TABLET BY ity of tablet 00:00: MOUTH TWICE Medical DAILY WITH Branch MEALS METFORMIN 2022-0 Yes [id number] TAKE 1 U nivers 1,000 mg 5-16 TABLET BY ity of tablet 00:00: MOUTH 00 TWICE Medical DAILY WITH Branch MEALS METFORMIN 2022-0 Yes [id number] TAKE 1 U nivers 1,000 mg 5-16 TABLET BY ity of tablet 00:00: MOUTH 00 TWICE Medical DAILY WITH Branch MEALS METFORMIN 2022-0 Yes [id number] TAKE 1 U nivers 1,000 mg 5-16 TABLET BY ity of tablet 00:00: MOUTH 00 TWICE Medical DAILY WITH Branch MEALS METFORMIN 2022-0 Yes [id number] TAKE 1 U nivers 1,000 mg 5-16 TABLET BY ity of tablet 00:00: MOUTH 00 TWICE Medical DAILY WITH Branch MEALS METFORMIN 2022-0 Yes [id number] TAKE 1 U nivers 1,000 mg 5-16 TABLET BY ity of tablet 00:00: MOUTH 00 TWICE Medical DAILY WITH Branch MEALS METFORMIN 2022-0 Yes [id number] TAKE 1 U nivers 1,000 mg 5-16 TABLET BY ity of tablet 00:00: MOUTH 00 TWICE Medical DAILY WITH Branch MEALS METFORMIN 2022-0 Yes [id number] TAKE 1 U nivers 1,000 mg 5-16 TABLET BY ity of tablet 00:00: MOUTH 00 TWICE Medical DAILY WITH Branch MEALS METFORMIN 2022-0 Yes [id number] TAKE 1 [facility] nivers 1,000 mg 5-16 TABLET BY ity of tablet 00:00: MOUTH 00 TWICE Medical DAILY WITH Branch MEALS METFORMIN 2022-0 Yes [id number] TAKE 1 U nivers 1,000 mg 5-16 TABLET BY [facility] of tablet 00:00: MOUTH TWICE Medical DAILY WITH [facility] MEALS METFORMIN 2022-0 Yes [id number] TAKE 1 [facility] 1,000 mg 5-16 TABLET BY [facility] of tablet 00:00: MOUTH TWICE Medical DAILY WITH [facility] MEALS METFORMIN 2022-0 Yes [id number] TAKE 1 [facility] 1,000 mg 5-16 TABLET BY [facility] of tablet 00:00: MOUTH 00 TWICE Medical DAILY WITH [facility] MEALS METFORMIN 2022-0 Yes [id number] TAKE 1 [facility] 1,000 mg 5-16 TABLET BY [facility] of tablet 00:00: MOUTH TWICE Medical DAILY WITH [facility] MEALS METFORMIN 2022-0 Yes [id number] TAKE 1 [facility] 1,000 mg 5-16 TABLET BY [facility] of tablet 00:00: MOUTH 00 TWICE Medical DAILY WITH [facility] MEALS METFORMIN 2022-0 Yes [id number] TAKE 1 [facility] 1,000 mg 5-16 TABLET BY [facility] of tablet 00:00: MOUTH 00 TWICE Medical DAILY WITH [facility] MEALS METFORMIN 2022-0 Yes [id number] TAKE 1 [facility] 1,000 mg 5-16 TABLET BY [facility] of tablet 00:00: MOUTH 00 TWICE Medical DAILY WITH [facility] MEALS METFORMIN 2022-0 Yes [id number] TAKE 1 [facility] 1,000 mg 5-16 TABLET BY [facility] of tablet 00:00: MOUTH 00 TWICE Medical DAILY WITH [facility] MEALS METFORMIN 2022-0 2021- No [id number] TAKE 1 [facility] 1,000 mg 5-16 11-21 TABLET BY ity o f tablet 00:00: 00:00 MOUTH [place] 00 :00 TWICE Medical DAILY WITH [facility] MEALS METFORMIN 2021-0 2021- No [id number] TAKE 1 [facility] 1,000 mg 5-16 11-21 TABLET BY ity o f tablet 00:00: 00:00 MOUTH [place] 00 :00 TWICE Medical DAILY WITH Branch MEALS HYDRALAZINE 2021-0 2021- No [id number] TAKE 1 [facility] 100 mg 5-16 09-06 TABLET BY [facility] tablet 00:00: 00:00 MOUTH [place] 00 :00 THREE Medical TIMES Branch DAILY LISINOPRIL 0 Yes [id number] TAKE 1/2 [facility] 40 mg 5-13 TABLET BY [facility] tablet 00:00: MOUTH [place] 00 TWICE Medical DAILY Branch LISINOPRIL 0 Yes [id number] TAKE 1/2 [facility] 40 mg 5-13 TABLET BY [facility] tablet 00:00: MOUTH 00 TWICE Medical DAILY Branch LISINOPRIL 2021-0 Yes [id number] TAKE 1/2 [facility] 40 mg 5-13 TABLET BY [facility] of tablet 00:00: MOUTH 00 TWICE Medical DAILY Branch LISINOPRIL 2021-0 Yes [id number] TAKE 1/2 [facility] 40 mg 5-13 TABLET BY [facility] of tablet 00:00: MOUTH [place] 00 TWICE Medical DAILY Branch LISINOPRIL 2021-0 Yes [id number] TAKE 1/2 [facility] 40 mg 5-13 TABLET BY [facility] of tablet 00:00: MOUTH [place] 00 TWICE Medical DAILY Branch LISINOPRIL 2021-0 Yes [id number] TAKE 1/2 [facility] 40 mg 5-13 TABLET BY [facility] of tablet 00:00: MOUTH 00 TWICE Medical DAILY Branch LISINOPRIL 2021-0 Yes [id number] TAKE 1/2 [facility] 40 mg 5-13 TABLET BY [facility] tablet 00:00: MOUTH [place] 00 TWICE Medical DAILY Branch LISINOPRIL 2021-0 2021- No [id number] TAKE 1/2 [facility] 40 mg 5-13 08-08 TABLET BY [facility] tablet 00:00: 00:00 MOUTH [place] 00 :00 TWICE Medical DAILY Branch LISINOPRIL 2021-0 2021- No [id number] TAKE 1/2 [facility] 40 mg 5-13 08-08 TABLET BY [facility] tablet 00:00: 00:00 MOUTH [place] 00 :00 TWICE Medical DAILY Branch HUMULIN Yes [id number] ADMINISTER [facility] 70/30 U-100 5-11 70 UNITS it[facility] of INSULIN 100 00:00: [place]ER THE [place] unit/mL 00 SKIN EVERY Medica l (70-30) MORNING Branch suspension THEN ADMINISTER 60 UNITS UNDER THE SKIN EVERY EVENING HUMULIN Yes [id number] ADMINISTER [facility] 70/30 U-100 5-11 70 UNITS ity of INSULIN 100 00:00: [place]ER THE [place] unit/mL 00 SKIN EVERY Medica l (70-30) MORNING Branch suspension THEN ADMINISTER 60 UNITS UNDER THE SKIN EVERY EVENING HUMULIN Yes [id number] ADMINISTER [facility] 70/30 U-100 5-11 70 UNITS ity of INSULIN 100 00:00: [place]ER THE [place] unit/mL 00 SKIN EVERY Medica l (70-30) MORNING Branch suspension THEN ADMINISTER 60 UNITS UNDER THE SKIN EVERY EVENING HUMULIN Yes [id number] ADMINISTER [facility] 70/30 U-100 5-11 70 UNITS ity of INSULIN 100 00:00: [place]ER THE [place] unit/mL 00 SKIN EVERY Medica l (70-30) MORNING Branch suspension THEN ADMINISTER 60 UNITS UNDER THE SKIN EVERY EVENING HUMULIN Yes [id number] ADMINISTER [facility] 70/30 U-100 5-11 70 UNITS ity of INSULIN 100 00:00: [place] unit/mL 00 SKIN EVERY Medica l (70-30) MORNING Branch suspension THEN ADMINISTER 60 UNITS UNDER THE SKIN EVERY EVENING HUMULIN 2021- No [id number] ADMINISTER [facility] 70/30 U-100 5-11 08-03 70 [...] 1{tbl} Take 1 U nivers -acetaminop 03-09 06-13 tablet by it y of hen [...] 15/64" DAILY WITH Suraj so syrg MEALS [facility] Insulin 2022- No USE 1 Unive rs Syringe 03-03 S[facility]ING[facility] ity o f U-500 /2 00:00: 00:00 DIRECTED [place] mL 31 gauge 00 :00 TWICE MD x 15/64" DAILY WITH Suraj so syrg MEALS [facility] Insulin 2022- No USE 1 Unive rs Syringe 03-03 [facility] ity o f U-500 1/2 00:00: 00:00 DIRECTED [place] mL 31 gauge 00 :00 TWICE MD x 15/64" DAILY WITH Suraj so syrg MEALS [facility] BD Insulin 2022- No USE 1 Unive rs Syringe 03-03 [facility] ity o f U-500 1/2 00:00: 00:00 DIRECTED [place] mL 31 gauge 00 :00 TWICE MD x 15/64" DAILY WITH Suraj so syrg MEALS [facility] BD Insulin 2022- No USE 1 Unive rs Syringe 03-03 [facility] ity o f U-500 1/2 00:00: 00:00 DIRECTED [place] mL 31 gauge 00 :00 TWICE MD x 15/64" DAILY WITH Suraj so syrg MEALS [facility] BD Insulin 2022- No USE 1 Unive rs Syringe 03-03 [facility] ity o f U-500 1/2 00:00: 00:00 DIRECTED [place] as mL 31 gauge 00 :00 TWICE MD x 15/64" DAILY WITH Suraj so syrg MEALS [facility] BD Insulin 2022- No USE 1 Unive rs Syringe 5-03 02-14 [facility] ity o f U-500 1/2 00:00: 00:00 DIRECTED [place] mL 31 gauge 00 :00 TWICE MD x 15/64" DAILY WITH Suraj so syrg MEALS [facility] BD Insulin 2022- No USE 1 Unive rs Syringe 5-12 31-14 [facility] ity o f U-500 1/2 00:00: 00:00 DIRECTED [place] mL 31 gauge 00 :00 TWICE MD x 15/64" DAILY WITH Suraj so syrg MEALS [facility] GABAPENTIN Yes [id number] TAKE 1 [facility] 600 mg 5-02 TABLET BY ity of tablet 00:00: MOUTH [place] 00 THREE Medical TIMES Branch DAILY BD INSULIN Yes [id number] USE 1 U nivers SYRINGE 5-02 S[facility]ING[facility] ity of U-500 12 00:00: TWICE [place] mL 31 gauge 00 DAILY WITH Me dical x 15/64" MEALS. Branch Syrg BD INSULIN Yes [id number] USE 1 U nivers SYRINGE 5-02 [facility] ity of U-500 12 00:00: TWICE [place] mL 31 gauge 00 DAILY WITH Me dical x 15/64" MEALS. Branch Syrg BD INSULIN Yes [id number] USE 1 U nivers SYRINGE 5-02 [facility] ity of U-500 2 00:00: TWICE [place] mL 31 gauge 00 DAILY WITH Me dical x 15/64" MEALS. Branch Syrg BD INSULIN Yes [id number] USE 1 U nivers SYRINGE 5-02 [facility] ity of U-500 1/2 00:00: TWICE [place] mL 31 gauge 00 DAILY WITH Me dical x 15/64" MEALS. Branch Syrg BD INSULIN Yes [id number] USE 1 U nivers SYRINGE 5-02 [facility] ity of U-500 2 00:00: TWICE [place] mL 31 gauge 00 DAILY WITH Me dical x 15/64" MEALS. Branch Syrg BD INSULIN Yes [id number] USE 1 U nivers SYRINGE 5-02 [facility] ity of U-500 1/2 00:00: TWICE [place] mL 31 gauge 00 DAILY WITH Me dical x 15/64" MEALS. Branch Syrg BD INSULIN 2021-0 Yes [id number] USE 1 U nivers SYRINGE 5-02 [facility] ity of U-500 2 00:00: TWICE [place] mL 31 gauge 00 DAILY WITH Me dical x 15/64" MEALS. Branch Syrg BD INSULIN 2021-0 Yes [id number] USE 1 U nivers SYRINGE 5-02 [facility] ity of U-500 2 00:00: TWICE [place] mL 31 gauge 00 DAILY WITH Me dical x 15/64" MEALS. Branch Syrg BD INSULIN 2021-0 Yes [id number] USE 1 U nivers SYRINGE 5-02 [facility] ity of U-500 2 00:00: TWICE [place] mL 31 gauge 00 DAILY WITH Me dical x 15/64" MEALS. Branch Syrg BD INSULIN 2021-0 Yes [id number] USE 1 U nivers SYRINGE 5-02 [facility] ity of U-500 2 00:00: TWICE [place] mL 31 gauge 00 DAILY WITH Me dical x 15/64" MEALS. Branch Syrg BD INSULIN 2021-0 Yes [id number] USE 1 U nivers SYRINGE 5-02 [facility] ity of U-500 2 00:00: TWICE [place] mL 31 gauge 00 DAILY WITH Me dical x 15/64" MEALS. Branch Syrg BD INSULIN 2021-0 Yes [id number] USE 1 U nivers SYRINGE 5-02 [facility] ity of U-500 2 00:00: TWICE [place] mL 31 gauge 00 DAILY WITH Me dical x 15/64" MEALS. Branch Syrg BD INSULIN 2021-0 Yes [id number] USE 1 U nivers SYRINGE 5-02 [facility] ity of U-500 2 00:00: TWICE [place] mL 31 gauge 00 DAILY WITH Me dical x 15/64" MEALS. Branch Syrg BD INSULIN 2021-0 Yes [id number] USE 1 U nivers SYRINGE 5-02 [facility] ity of U-500 2 00:00: TWICE [place] mL 31 gauge 00 DAILY WITH Me dical x 15/64" MEALS. Branch Syrg BD INSULIN 2021-0 Yes [id number] USE 1 U nivers SYRINGE 5-02 [facility] ity of U-500 2 00:00: TWICE [place] mL 31 gauge 00 DAILY WITH Me dical x 15/64" MEALS. Branch Syrg BD INSULIN 2021-0 Yes [id number] USE 1 U nivers SYRINGE 5-02 [facility] ity of U-500 2 00:00: TWICE [place] mL 31 gauge 00 DAILY WITH Me dical x 15/64" MEALS. Branch Syrg BD INSULIN 2021-0 Yes [id number] USE 1 U nivers SYRINGE 5-02 [facility] ity of U-500 2 00:00: TWICE [place] mL 31 gauge 00 DAILY WITH Me dical x 15/64" MEALS. Branch Syrg BD INSULIN 0 Yes [id number] USE 1 U nivers SYRINGE 5-02 [facility] ity of U-500 2 00:00: TWICE [place] mL 31 gauge 00 DAILY WITH Me dical x 15/64" MEALS. Branch Syrg BD INSULIN 2021-0 Yes [id number] USE 1 U nivers S[facility]INGE 5-02 [facility] ity of U-500 2 00:00: TWICE [place] mL 31 gauge 00 DAILY WITH Me dical x 15/64" MEALS. Branch Syrg BD INSULIN Yes [id number] USE 1 U nivers SYRINGE 5-02 [facility] ity of U-500 2 00:00: TWICE [place] mL 31 gauge 00 DAILY WITH Me dical x 15/64" MEALS. Branch Syrg BD INSULIN 0 Yes [id number] USE 1 U nivers SYRINGE 5-02 [facility] ity of U-500 2 00:00: TWICE [place] mL 31 gauge 00 DAILY WITH Me dical x 15/64" MEALS. Branch Syrg BD INSULIN 2021-0 Yes [id number] USE 1 U nivers SYRINGE 5-02 [facility] ity of U-500 2 00:00: TWICE [place] mL 31 gauge 00 DAILY WITH Me dical x 15/64" MEALS. Branch Syrg BD INSULIN 2021-0 Yes [id number] USE 1 U nivers SYRINGE 5-02 [facility] ity of U-500 2 00:00: TWICE [place] mL 31 gauge 00 DAILY WITH Me dical x 15/64" MEALS. Branch Syrg BD INSULIN 2021-0 Yes [id number] USE 1 U nivers SYRINGE 5-02 [facility] ity of U-500 2 00:00: TWICE [place] mL 31 gauge 00 DAILY WITH Me dical x 15/64" MEALS. Branch Syrg BD INSULIN 2021-0 Yes [id number] USE 1 U nivers S[facility]INGE 5-02 [facility] ity of U-500 2 00:00: TWICE [place] mL 31 gauge 00 DAILY WITH Me dical x 15/64" MEALS. Branch Syrg BD INSULIN 2021-0 Yes [id number] USE 1 U nivers SYRINGE 5-02 [facility] ity of U-500 2 00:00: TWICE [place] mL 31 gauge 00 DAILY WITH Me dical x 15/64" MEALS. Branch Syrg BD INSULIN 2021-0 Yes [id number] USE 1 U nivers SYRINGE 5-02 [facility] ity of U-500 2 00:00: TWICE [place] mL 31 gauge 00 DAILY WITH Me dical x 15/64" MEALS. Branch Syrg BD INSULIN 2021-0 Yes [id number] USE 1 U nivers SYRINGE 5-02 [facility] ity of U-500 2 00:00: TWICE [place] mL 31 gauge 00 DAILY WITH Me dical x 15/64" MEALS. Branch Syrg BD INSULIN 2021-0 Yes [id number] USE 1 U nivers SYRINGE 5-02 [facility] ity of U-500 2 00:00: TWICE [place] mL 31 gauge 00 DAILY WITH Me dical x 15/64" MEALS. Branch Syrg BD INSULIN 2021-0 Yes [id number] USE 1 U nivers SYRINGE 5-02 [facility] ity of U-500 2 00:00: TWICE [place] mL 31 gauge 00 DAILY WITH Me dical x 15/64" MEALS. Branch Syrg BD INSULIN 2021-0 Yes [id number] USE 1 U nivers SYRINGE 5-02 [facility] ity of U-500 2 00:00: TWICE [place] mL 31 gauge 00 DAILY WITH Me dical x 15/64" MEALS. Branch Syrg BD INSULIN 2021-0 Yes [id number] USE 1 U nivers SYRINGE 5-02 [facility] ity of U-500 2 00:00: TWICE [place] mL 31 gauge 00 DAILY WITH Me dical x 15/64" MEALS. Branch Syrg BD INSULIN 2021-0 Yes [id number] USE 1 U nivers SYRINGE 5-02 [facility] ity of U-500 2 00:00: TWICE [place] mL 31 gauge 00 DAILY WITH Me dical x 15/64" MEALS. Branch Syrg BD INSULIN 2021-0 Yes [id number] USE 1 U nivers SYRINGE 5-02 [facility] ity of U-500 2 00:00: TWICE [place] mL 31 gauge 00 DAILY WITH Me dical x 15/64" MEALS. Branch Syrg BD INSULIN 2021-0 Yes [id number] USE 1 U nivers SYRINGE 5-02 [facility] ity of U-500 2 00:00: TWICE [place] mL 31 gauge 00 DAILY WITH Me dical x 15/64" MEALS. Branch Syrg BD INSULIN 2021-0 Yes [id number] USE 1 U nivers SYRINGE 5-02 [facility] ity of U-500 2 00:00: TWICE [place] mL 31 gauge 00 DAILY WITH Me dical x 15/64" MEALS. Branch Syrg BD INSULIN 2021-0 Yes [id number] USE 1 U nivers S[facility]ING[facility] 5-02 [facility] ity of U-500 2 00:00: TWICE [place] mL 31 gauge 00 DAILY WITH Me dical x 15/64" MEALS. Branch Syrg BD INSULIN 2021-0 Yes [id number] USE 1 U nivers SYRINGE 5-02 [facility] ity of U-500 2 00:00: TWICE [place] mL 31 gauge 00 DAILY WITH Me dical x 15/64" MEALS. Branch Syrg BD INSULIN 2021-0 Yes [id number] USE 1 U nivers SYRINGE 5-02 [facility] ity of U-500 2 00:00: TWICE [place] mL 31 gauge 00 DAILY WITH Me dical x 15/64" MEALS. Branch Syrg BD INSULIN 2021-0 Yes [id number] USE 1 U nivers SYRINGE 5-02 [facility] ity of U-500 2 00:00: TWICE [place] mL 31 gauge 00 DAILY WITH Me dical x 15/64" MEALS. Branch Syrg BD INSULIN 2021-0 Yes [id number] USE 1 U nivers S[facility]ING[place] 5-02 [facility] ity of U-500 2 00:00: TWICE [place] mL 31 gauge 00 DAILY WITH Me dical x 15/64" MEALS. Branch Syrg BD INSULIN 2021-0 Yes [id number] USE 1 U nivers S[facility]INGE 5-02 [facility] ity of U-500 2 00:00: TWICE [place] mL 31 gauge 00 DAILY WITH Me dical x 15/64" MEALS. Branch Syrg BD INSULIN 2021-0 Yes [id number] USE 1 U nivers S[facility]INGE 5-02 [facility] ity of U-500 2 00:00: TWICE [place] mL 31 gauge 00 DAILY WITH Me dical x 15/64" MEALS. Branch Syrg BD INSULIN 2021-0 Yes [id number] USE 1 U nivers SYRINGE 5-02 [facility] ity of U-500 2 00:00: TWICE [place] mL 31 gauge 00 DAILY WITH Me dical x 15/64" MEALS. Branch Syrg BD INSULIN 2021-0 Yes [id number] USE 1 U nivers S[facility]INGE 5-02 [facility] ity of U-500 2 00:00: TWICE [place] mL 31 gauge 00 DAILY WITH Me dical x 15/64" MEALS. Branch Syrg BD INSULIN 2021-0 Yes [id number] USE 1 U nivers S[facility]ING[facility] 5-02 [facility] ity of U-500 2 00:00: TWICE [place] mL 31 gauge 00 DAILY WITH Me dical x 15/64" MEALS. Branch Syrg BD INSULIN 2021-0 Yes [id number] USE 1 U nivers SYRINGE 5-02 [facility] ity of U-500 2 00:00: TWICE [place] mL 31 gauge 00 DAILY WITH Me dical x 15/64" MEALS. Branch Syrg BD INSULIN 0 Yes [id number] USE 1 U nivers SYRINGE 5-02 [facility] ity of U-500 2 00:00: TWICE [place] mL 31 gauge 00 DAILY WITH Me dical x 15/64" MEALS. Branch Syrg BD INSULIN 2021-0 Yes [id number] USE 1 U nivers S[facility]INGE 5-02 [facility] ity of U-500 2 00:00: TWICE [place] mL 31 gauge 00 DAILY WITH Me dical x 15/64" MEALS. Branch Syrg BD INSULIN 2021-0 Yes [id number] USE 1 U nivers [facility] 5-02 [facility] ity of U-500 2 00:00: TWICE [place] mL 31 gauge 00 DAILY WITH Me dical x 15/64" MEALS. Branch Syrg BD INSULIN 2021-0 Yes [id number] USE 1 U nivers S[facility] 5-02 [facility] ity of U-500 2 00:00: TWICE [place] mL 31 gauge 00 DAILY WITH Me dical x 15/64" MEALS. Branch Syrg BD INSULIN 0 Yes [id number] USE 1 U nivers SYRINGE 5-02 [facility] ity of U-500 2 00:00: TWICE [place] mL 31 gauge 00 DAILY WITH Me dical x 15/64" MEALS. Branch Syrg BD INSULIN 0 Yes [id number] USE 1 U nivers SYRINGE 5-02 [facility] ity of U-500 2 00:00: TWICE [place] mL 31 gauge 00 DAILY WITH Me dical x 15/64" MEALS. Branch Syrg BD INSULIN 0 Yes [id number] USE 1 U nivers S[facility] 5-02 [facility] ity of U-500 2 00:00: TWICE [place] mL 31 gauge 00 DAILY WITH Me dical x 15/64" MEALS. Branch Syrg BD INSULIN 0 Yes [id number] USE 1 U nivers SYRINGE 5-02 [facility] ity of U-500 2 00:00: TWICE [place] mL 31 gauge 00 DAILY WITH Me dical x 15/64" MEALS. Branch Syrg BD INSULIN 0 Yes [id number] USE 1 U nivers S[facility]INGE 5-02 [facility] ity of U-500 2 00:00: TWICE [place] mL 31 gauge 00 DAILY WITH Me dical x 15/64" MEALS. Branch Syrg BD INSULIN 0 Yes [id number] USE 1 U nivers [facility] 5-02 [facility] ity of U-500 2 00:00: TWICE [place] mL 31 gauge 00 DAILY WITH Me dical x 15/64" MEALS. Branch Syrg BD INSULIN 2021-0 Yes [id number] USE 1 U nivers S[facility]INGE 5-02 [facility] ity of U-500 2 00:00: TWICE [place] mL 31 gauge 00 DAILY WITH Me dical x 15/64" MEALS. Branch Syrg GABAPENTIN 2021-2021- No [id number] TAKE 1 [facility] 600 mg 5-02 05-31 TABLET BY ity of tablet 00:00: 00:00 MOUTH [place] 00 :00 THREE Medical TIMES Branch DAILY sucralfate 2021-0 Yes [id number] 1g Take 1 [facility] 1 gram 3-27 tablet by ity of tablet 00:00: mouth [place] 00 before Medical meals and Branch at bedtime. sucralfate 0 Yes [id number] 1g Take 1 [facility] 1 gram 3-27 tablet by ity of tablet 00:00: mouth [place] 00 before Medical meals and Branch at bedtime. sucralfate 2022-0 Yes [id number] 1g Take 1 [facility] 1 gram 3-27 tablet by ity of tablet 00:00: mouth [place] 00 before Medical meals and Branch at bedtime. sucralfate 2022-0 Yes [id number] 1g Take 1 [facility] 1 gram 3-27 tablet by ity of tablet 00:00: mouth [place] 00 before Medical meals and Branch at bedtime. sucralfate 2022-0 Yes [id number] 1g Take 1 [facility] 1 gram 3-27 tablet by ity of tablet 00:00: mouth [place] 00 before Medical meals and Branch at bedtime. sucralfate 2022-0 Yes [id number] 1g Take 1 [facility] 1 gram 3-27 tablet by ity of tablet 00:00: mouth [place] 00 before Medical meals and Branch at bedtime. sucralfate 2-0 Yes [id number] 1g Take 1 [facility] 1 gram 3-27 tablet by ity of tablet 00:00: mouth [place] 00 before Medical meals and Branch at bedtime. sucralfate 2021-0 Yes [id number] 1g Take 1 [facility] 1 gram 3-27 tablet by ity of tablet 00:00: mouth [place] 00 before Medical meals and Branch at bedtime. sucralfate 2-0 Yes [id number] 1g Take 1 [facility] 1 gram 3-27 tablet by ity of tablet 00:00: mouth [place] 00 before Medical meals and Branch at bedtime. sucralfate 2-0 Yes [id number] 1g Take 1 [facility] 1 gram 3-27 tablet by ity of tablet 00:00: mouth [place] 00 before Medical meals and Branch at bedtime. sucralfate 2-0 Yes [id number] 1g Take 1 [facility] 1 gram 3-27 tablet by ity of tablet 00:00: mouth [place] 00 before Medical meals and Branch at bedtime. sucralfate 2022-0 Yes [id number] 1g Take 1 [facility] 1 gram 3-27 tablet by ity of tablet 00:00: mouth [place] 00 before Medical meals and Branch at bedtime. sucralfate 2022-0 Yes [id number] 1g Take 1 [facility] 1 gram 3-27 tablet by ity of tablet 00:00: mouth [place] 00 before Medical meals and Branch at bedtime. sucralfate 2022-0 Yes [id number] 1g Take 1 [facility] 1 gram 3-27 tablet by ity of tablet 00:00: mouth [place] 00 before Medical meals and Branch at bedtime. sucralfate 2022-0 Yes [id number] 1g Take 1 [facility] 1 gram 3-27 tablet by ity of tablet 00:00: mouth [place] 00 before Medical meals and Branch at bedtime. sucralfate 2022-0 Yes [id number] 1g Take 1 [facility] 1 gram 3-27 tablet by ity of tablet 00:00: mouth [place] 00 before Medical meals and Branch at bedtime. sucralfate 2022-0 Yes [id number] 1g Take 1 [facility] 1 gram 3-27 tablet by ity of tablet 00:00: mouth [place] 00 before Medical meals and Branch at bedtime. sucralfate 2022-0 Yes [id number] 1g Take 1 [facility] 1 gram 3-27 tablet by ity of tablet 00:00: mouth [place] 00 before Medical meals and Branch at bedtime. sucralfate 2022-0 Yes [id number] 1g Take 1 [facility] 1 gram 3-27 tablet by ity of tablet 00:00: mouth [place] 00 before Medical meals and Branch at bedtime. sucralfate 2022-0 Yes [id number] 1g Take 1 [facility] 1 gram 3-27 tablet by ity of tablet 00:00: mouth [place] 00 before Medical meals and Branch at bedtime. sucralfate 2022-0 Yes [id number] 1g Take 1 [facility] 1 gram 3-27 tablet by ity of tablet 00:00: mouth [place] 00 before Medical meals and Branch at bedtime. sucralfate 2022-0 Yes [id number] 1g Take 1 [facility] 1 gram 3-27 tablet by ity of tablet 00:00: mouth [place] 00 before Medical meals and Branch at bedtime. sucralfate 2022-0 Yes [id number] 1g Take 1 [facility] 1 gram 3-27 tablet by ity of tablet 00:00: mouth [place] 00 before Medical meals and Branch at bedtime. sucralfate 2022-0 Yes [id number] 1g Take 1 [facility] 1 gram 3-27 tablet by ity of tablet 00:00: mouth [place] 00 before Medical meals and Branch at bedtime. sucralfate 2022-0 Yes [id number] 1g Take 1 [facility] 1 gram 3-27 tablet by ity of tablet 00:00: mouth [place] 00 before Medical meals and Branch at bedtime. sucralfate 2021-0 Yes [id number] 1g Take 1 [facility] 1 gram 3-27 tablet by ity of tablet 00:00: mouth [place] 00 before Medical meals and Branch at bedtime. sucralfate 2-0 Yes [id number] 1g Take 1 [facility] 1 gram 3-27 tablet by ity of tablet 00:00: mouth [place] 00 before Medical meals and Branch at bedtime. sucralfate 2021-0 Yes [id number] 1g Take 1 [facility] 1 gram 3-27 tablet by ity of tablet 00:00: mouth [place] 00 before Medical meals and Branch at bedtime. sucralfate 2021-0 Yes [id number] 1g Take 1 [facility] 1 gram 3-27 tablet by ity of tablet 00:00: mouth [place] 00 before Medical meals and Branch at bedtime. sucralfate 2021-0 Yes [id number] 1g Take 1 [facility] 1 gram 3-27 tablet by ity of tablet 00:00: mouth [place] 00 before Medical meals and Branch at bedtime. sucralfate 2021-0 Yes [id number] 1g Take 1 [facility] 1 gram 3-27 tablet by ity of tablet 00:00: mouth [place] 00 before Medical meals and Branch at bedtime. sucralfate 2021-0 Yes [id number] 1g Take 1 [facility] 1 gram 3-27 tablet by ity of tablet 00:00: mouth [place] 00 before Medical meals and Branch at bedtime. sucralfate 2021-0 Yes [id number] 1g Take 1 [facility] 1 gram 3-27 tablet by ity of tablet 00:00: mouth [place] 00 before Medical meals and Branch at bedtime. sucralfate 2021-0 Yes [id number] 1g Take 1 [facility] 1 gram 3-27 tablet by ity of tablet 00:00: mouth [place] 00 before Medical meals and Branch at bedtime. sucralfate 2021-0 Yes [id number] 1g Take 1 [facility] 1 gram 3-27 tablet by ity of tablet 00:00: mouth [place] 00 before Medical meals and Branch at bedtime. sucralfate 2-0 Yes [id number] 1g Take 1 [facility] 1 gram 3-27 tablet by ity of tablet 00:00: mouth [place] 00 before Medical meals and Branch at bedtime. sucralfate 2-0 Yes [id number] 1g Take 1 [facility] 1 gram 3-27 tablet by ity of tablet 00:00: mouth [place] 00 before Medical meals and Branch at bedtime. sucralfate 2022-0 Yes [id number] 1g Take 1 [facility] 1 gram 3-27 tablet by ity of tablet 00:00: mouth [place] 00 before Medical meals and Branch at bedtime. sucralfate 2022-0 Yes [id number] 1g Take 1 [facility] 1 gram 3-27 tablet by ity of tablet 00:00: mouth [place] 00 before Medical meals and Branch at bedtime. sucralfate 2-0 Yes [id number] 1g Take 1 [facility] 1 gram 3-27 tablet by ity of tablet 00:00: mouth [place] 00 before Medical meals and Branch at bedtime. sucralfate 2-0 Yes [id number] 1g Take 1 [facility] 1 gram 3-27 tablet by ity of tablet 00:00: mouth [place] 00 before Medical meals and Branch at bedtime. sucralfate 2021-0 Yes [id number] 1g Take 1 [facility] 1 gram 3-27 tablet by ity of tablet 00:00: mouth [place] 00 before Medical meals and Branch at bedtime. sucralfate 2-0 Yes [id number] 1g Take 1 [facility] 1 gram 3-27 tablet by ity of tablet 00:00: mouth [place] 00 before Medical meals and Branch at bedtime. sucralfate 2-0 Yes [id number] 1g Take 1 [facility] 1 gram 3-27 tablet by ity of tablet 00:00: mouth [place] 00 before Medical meals and Branch at bedtime. sucralfate 2-0 Yes [id number] 1g Take 1 [facility] 1 gram 3-27 tablet by ity of tablet 00:00: mouth [place] 00 before Medical meals and Branch at bedtime. sucralfate 2022-0 Yes [id number] 1g Take 1 [facility] 1 gram 3-27 tablet by ity of tablet 00:00: mouth [place] 00 before Medical meals and Branch at bedtime. sucralfate 2022-0 Yes [id number] 1g Take 1 [facility] 1 gram 3-27 tablet by ity of tablet 00:00: mouth [place] 00 before Medical meals and Branch at bedtime. sucralfate 2021-0 Yes [id number] 1g Take 1 [facility] 1 gram 3-27 tablet by ity of tablet 00:00: mouth [place] 00 before Medical meals and Branch at bedtime. sucralfate 2021-0 Yes [id number] 1g Take 1 [facility] 1 gram 3-27 tablet by ity of tablet 00:00: mouth [place] 00 before Medical meals and Branch at bedtime. sucralfate 2021-0 Yes [id number] 1g Take 1 [facility] 1 gram 3-27 tablet by ity of tablet 00:00: mouth [place] 00 before Medical meals and Branch at bedtime. sucralfate 2021-0 Yes [id number] 1g Take 1 [facility] 1 gram 3-27 tablet by ity of tablet 00:00: mouth [place] 00 before Medical meals and Branch at bedtime. sucralfate 2021-0 Yes [id number] 1g Take 1 [facility] 1 gram 3-27 tablet by ity of tablet 00:00: mouth [place] 00 before Medical meals and Branch at bedtime. sucralfate 2021-0 Yes [id number] 1g Take 1 [facility] 1 gram 3-27 tablet by ity of tablet 00:00: mouth [place] 00 before Medical meals and Branch at bedtime. sucralfate 2021-0 Yes [id number] 1g Take 1 [facility] 1 gram 3-27 tablet by ity of tablet 00:00: mouth [place] 00 before Medical meals and Branch at bedtime. sucralfate 2021-0 Yes [id number] 1g Take 1 [facility] 1 gram 3-27 tablet by ity of tablet 00:00: mouth [place] 00 before Medical meals and Branch at bedtime. sucralfate 2021-0 Yes [id number] 1g Take 1 [facility] 1 gram 3-27 tablet by ity of tablet 00:00: mouth [place] 00 before Medical meals and Branch at bedtime. sucralfate 2021-0 Yes [id number] 1g Take 1 [facility] 1 gram 3-27 tablet by ity of tablet 00:00: mouth [place] 00 before Medical meals and Branch at bedtime. sucralfate 2021-0 Yes [id number] 1g Take 1 [facility] 1 gram 3-27 [...] needed for Anxiety. hydrALAZINE 2021-0 Yes 10mg Q.[id number] Take [address] [facility] (APRESOLINE 3-11 [id number] by mouth [facility] ) 10 MG [...] 02 Center tablet gabapentin 2021-0 Yes 100mg Q.[id number] Take [address] [facility] (NEURONTIN) 3-11 [id number] mg by L [facility] 100 MG 14:10: [...] needed for Anxiety. hydrALAZINE 2021-0 Yes 10mg Q.[id number] Take [address] [facility] (APRESOLINE 3-11 [id number] by [facility] ) 10 MG [...] 02 Center tablet gabapentin 2021-0 Yes 100mg Q.[id number] Take [address] [facility] (NEURONTIN) 3-11 [id number] mg by L [facility] 100 MG 14:10: [...] needed for Anxiety. hydrALAZINE 2021-0 Yes 10mg Q.[id number] Take [address] [facility] (APRESOLINE 3-11 [id number] by mouth [facility] ) 10 MG [...] 02 Center tablet gabapentin 2021-0 Yes 100mg Q.[id number] Take [address] [facility] (NEURONTIN) 3-11 [id number] mg by L [facility] 100 MG 14:10: [...] needed for Anxiety. hydrALAZINE 2021-0 Yes 10mg Q.[id number] Take [address] [facility] (APRESOLINE 3-11 [id number] by mouth [facility] ) 10 MG [...] 02 Center tablet gabapentin 2021-0 Yes 100mg Q.[id number] Take [address] [facility] (NEURONTIN) 3-11 [id number] mg by L ukes 100 MG 14:10: [...] needed for Anxiety. hydrALAZINE 0 Yes 10mg Q.[id number] Take [address] [facility] (APRESOLINE 3-11 [id number] [facility] ) 10 MG [...] 02 Center tablet gabapentin 2021-0 Yes 100mg Q.[id number] Take [address] [facility] (NEURONTIN) 3-11 [id number] mg by L ukes 100 MG 14:10: [...] needed for Anxiety. hydrALAZINE 2022-0 Yes 10mg Q.[id number] Take [address] [facility] (APRESOLINE 3-11 [id number] [facility] ) 10 MG [...] 02 Center tablet gabapentin 2021-0 Yes 100mg Q.[id number] Take [address] [facility] (NEURONTIN) 3-11 [id number] mg by L [facility] 100 MG 14:10: [...] as needed for Anxiety. hydrALAZINE Yes 10mg Q.71249257 Take [address] [facility] (APRESOLINE 3-11 [id number] by mouth [facility] ) 10 MG [...] 02 Center tablet gabapentin 0 Yes 100mg Q.95613745 Take [address] [facility] (NEURONTIN) 3-11 [id number] mg by L [facility] 100 MG 14:10: [...] needed for Anxiety. hydrALAZINE 2021-0 Yes 10mg Q.17116164 Take [address] [facility] (APRESOLINE 3-11 [id number] by mouth [facility] ) 10 MG [...] MG 02 Center tablet gabapentin Yes 100mg Q.72873236 Take [address] [facility] (NEURONTIN) 3-11 [id number] mg by L [facility] 100 MG 14:10: [...] as needed for Anxiety. hydrALAZINE Yes 10mg Q.19191474 Take [address] [facility] (APRESOLINE 3-11 [id number] by mouth [facility] ) 10 MG [...] MG 02 Center tablet gabapentin Yes 100mg Q.[id number] Take [address] [facility] (NEURONTIN) 3-11 [id number] mg by L [facility] 100 MG 14:10: [...] needed for Anxiety. hydrALAZINE 2021-0 Yes 10mg Q.90228499 Take [address] [facility] (APRESOLINE 3-11 [id number] by mouth [facility] ) 10 MG [...] 02 Center tablet gabapentin 0 Yes 100mg Q.74797762 Take [address] [facility] (NEURONTIN) 3-11 [id number] mg by L [facility] 100 MG 14:10: [...] as needed for Anxiety. hydrALAZINE Yes 10mg Q.73964290 Take [address] [facility] (APRESOLINE 3-11 [id number] by mouth [facility] ) 10 MG [...] MG 02 Center tablet gabapentin Yes 100mg Q.42456141 Take [address] [facility] (NEURONTIN) 3-11 [id number] mg by L [facility] 100 MG 14:10: [...] needed for Anxiety. hydrALAZINE 2021-0 Yes 10mg Q.05412882 Take [address] [facility] (APRESOLINE 3-11 [id number] by mouth [facility] ) 10 MG [...] 02 Center tablet gabapentin 0 Yes 100mg Q.07907965 Take [address] [facility] (NEURONTIN) 3-11 [id number] mg by L [facility] 100 MG 14:10: [...] as needed for Anxiety. hydrALAZINE Yes 10mg Q.29214582 Take [address] [facility] (APRESOLINE 3-11 [id number] by mouth [facility] ) 10 MG [...] MG 02 Center tablet gabapentin Yes 100mg Q.89177213 Take [address] [facility] (NEURONTIN) 3-11 [id number] mg by L [facility] 100 MG 14:10: [...] needed for Anxiety. hydrALAZINE 2021-0 Yes 10mg Q.32745606 Take [address] [facility] (APRESOLINE 3-11 [id number] by mouth [facility] ) 10 MG [...] 02 Center tablet gabapentin 2021-0 Yes 100mg Q.70979432 Take [address] [facility] (NEURONTIN) 3-11 [id number] mg by [facility] 100 MG 14:10: [...] as needed for Anxiety. hydrALAZINE Yes 10mg Q.47554569 Take [address] [facility] (APRESOLINE 3-11 [id number] by mouth [facility] ) 10 MG [...] MG 02 Center tablet gabapentin Yes 100mg Q.59773650 Take [address] [facility] (NEURONTIN) 3-11 [id number] mg by [facility] 100 MG 14:10: [...] needed for Anxiety. hydrALAZINE 0 Yes 10mg Q.68935371 Take [address] [facility] (APRESOLINE 3-11 [id number] by mouth [facility] ) 10 MG [...] 02 Center tablet gabapentin 0 Yes 100mg Q.73657910 Take [address] [facility] (NEURONTIN) 3-11 [id number] mg by L [facility] 100 MG 14:10: [...] as needed for Anxiety. hydrALAZINE Yes 10mg Q.11684739 Take [address] [facility] (APRESOLINE 3-11 [id number] by mouth [facility] ) 10 MG [...] MG 02 Center tablet gabapentin Yes 100mg Q.23285778 Take [address] [facility] (NEURONTIN) 3-11 [id number] mg by [facility] 100 MG 14:10: [...] needed for Anxiety. hydrALAZINE 0 Yes 10mg Q.99097623 Take [address] [facility] (APRESOLINE 3-11 [id number] by mouth [facility] ) 10 MG [...] 02 Center tablet gabapentin 0 Yes 100mg Q.66684463 Take [address] [facility] (NEURONTIN) 3-11 [id number] mg by L [facility] 100 MG 14:10: [...] as needed for Anxiety. hydrALAZINE Yes 10mg Q.61189221 Take [address] [facility] (APRESOLINE 3-11 [id number] by mouth [facility] ) 10 MG [...] MG 02 Center tablet gabapentin Yes 100mg Q.25113453 Take [address] [facility] (NEURONTIN) 3-11 [id number] mg by L [facility] 100 MG 14:10: [...] TWICE Medical DAILY Branch HYDROCHLORO 0 Yes [id number] 12.5mg TAKE 1 [facility] THIAZIDE 1-19 CAPSULE BY ity o f 12.5 mg 00:00: MOUTH [place] capsule 00 DAILY Medical Branch HYDROCHLORO 0 Yes [id number] 12.5mg TAKE 1 [facility] THIAZIDE 1-19 CAPSULE BY ity o f 12.5 mg 00:00: MOUTH [place] capsule 00 DAILY Medical Branch HYDROCHLORO 0 Yes [id number] 12.5mg TAKE 1 [facility] THIAZIDE 1-19 CAPSULE BY ity o f 12.5 mg 00:00: MOUTH [place] capsule 00 DAILY Medical Branch HYDROCHLORO 0 Yes [id number] 12.5mg TAKE 1 [facility] THIAZIDE 1-19 CAPSULE BY ity o f 12.5 mg 00:00: MOUTH [place] capsule 00 DAILY Medical Branch HYDROCHLORO 2021-0 2- No [id number] 12.5mg TAKE 1 [facility] THIAZIDE 1-19 07-18 [...] 1 Un ally IN 0.4 mg 2-27 - TABLET ity of sublingual 00:00: 00:00 [place]ER THE [place] tablet 00 :00 TONGUE Medical EVERY 5 Branch MINUTES NEEDED FOR CHEST PAIN. DICLOFENAC 2020-11 Yes [id number] APPLY TO Univers SODIUM 1 % 2-02 THE ity of gel 00:00: AFFECTED [place] 00 [facility] FOUR Medical TIMES Branch DAILY DICLOFENAC 2020-11 Yes [id number] APPLY TO Univers SODIUM 1 % 2-02 THE ity of gel 00:00: AFFECTED [place] 00 [facility] FOUR Medical TIMES Branch DAILY DICLOFENAC 2020-11 Yes [id number] APPLY TO Univers SODIUM 1 % 2-02 THE ity of gel 00:00: AFFECTED [place] 00 [facility] FOUR Medical TIMES Branch DAILY DICLOFENAC 2020-11 Yes [id number] APPLY TO Univers SODIUM 1 % 2-02 THE ity of gel 00:00: AFFECTED [place] 00 [facility] FOUR Medical TIMES Branch DAILY DICLOFENAC 2020-11 Yes [id number] APPLY TO Univers SODIUM 1 % 2-02 THE ity of gel 00:00: AFFECTED [place] 00 [facility] FOUR Medical TIMES Branch DAILY DICLOFENAC 2020-11 Yes [id number] APPLY TO Univers SODIUM 1 % 2-02 THE ity of gel 00:00: AFFECTED [place] 00 ARE[facility] FOUR Medical TIMES Branch DAILY DICLOFENAC 2020-11 Yes [id number] APPLY TO Univers SODIUM 1 % 2-02 THE ity of gel 00:00: AFFECTED [place] 00 [facility] FOUR Medical TIMES Branch DAILY DICLOFENAC 2020-11 Yes [id number] APPLY TO Univers SODIUM 1 % 2-02 THE ity of gel 00:00: AFFECTED [place] 00 [facility] FOUR Medical TIMES Branch DAILY DICLOFENAC 2020-11 Yes [id number] APPLY TO Univers SODIUM 1 % 2-02 THE ity of gel 00:00: AFFECTED 00 [facility] FOUR Medical TIMES Branch DAILY DICLOFENAC 2020-11 Yes [id number] APPLY TO Univers SODIUM 1 % 2-02 THE ity of gel 00:00: AFFECTED [place] 00 [facility] FOUR Medical TIMES Branch DAILY DICLOFENAC 2020-11 Yes [id number] APPLY TO Univers SODIUM 1 % 2-02 THE ity of gel 00:00: AFFECTED 00 [facility] FOUR Medical TIMES Branch DAILY DICLOFENAC 2020-11 Yes [id number] APPLY TO Univers SODIUM 1 % 2-02 THE ity of gel 00:00: AFFECTED [place] 00 [facility] Medical TIMES Branch DAILY DICLOFENAC 2020-11 Yes [id number] APPLY TO Univers SODIUM 1 % 2-02 THE ity of gel 00:00: AFFECTED [place] [facility] Medical TIMES Branch DAILY DICLOFENAC 2020-11 Yes [id number] APPLY TO Univers SODIUM 1 % 2-02 THE ity of gel 00:00: AFFECTED [place] [facility] Medical TIMES Branch DAILY DICLOFENAC 2020-11 Yes [id number] APPLY TO Univers SODIUM 1 % 2-02 THE ity of gel 00:00: AFFECTED 00 [facility] FOUR Medical TIMES Branch DAILY DICLOFENAC 2020-11 Yes [id number] APPLY TO Univers SODIUM 1 % 2-02 THE ity of gel 00:00: AFFECTED [place] [facility] Medical TIMES Branch DAILY DICLOFENAC 2020-11 Yes [id number] APPLY TO Univers SODIUM 1 % 2-02 THE ity of gel 00:00: AFFECTED [place] [facility] Medical TIMES Branch DAILY DICLOFENAC 2020-11 Yes [id number] APPLY TO Univers SODIUM 1 % 2-02 THE ity of gel 00:00: AFFECTED [place] [facility] FOUR Medical TIMES Branch DAILY DICLOFENAC 2020-11 Yes [id number] APPLY TO Univers SODIUM 1 % 2-02 THE ity of gel 00:00: AFFECTED [place] 00 [facility] FOUR Medical TIMES Branch DAILY DICLOFENAC 2020-11 Yes [id number] APPLY TO Univers SODIUM 1 % 2-02 THE ity of gel 00:00: AFFECTED [place] 00 [facility] FOUR Medical TIMES Branch DAILY DICLOFENAC 2020-11 Yes [id number] APPLY TO Univers SODIUM 1 % 2-02 THE ity of gel 00:00: AFFECTED [place] 00 [facility] FOUR Medical TIMES Branch DAILY DICLOFENAC 2020-11 Yes [id number] APPLY TO Univers SODIUM 1 % 2-02 THE ity of gel 00:00: AFFECTED [place] 00 AREA FOUR Medical TIMES Branch DAILY DICLOFENAC 2020-11- No [id number] APPLY TO Univers SODIUM 1 % 12-03 THE ity of gel 00:00: 00:00 AFFECTED [place] 00 :00 AREA FOUR Medical TIMES Branch DAILY DICLOFENAC 2020-11- No [id number] APPLY TO Univers SODIUM 1 % 12-03 THE ity of gel 00:00: 00:00 AFFECTED [place] 00 :00 AREA FOUR Medical TIMES Branch DAILY colchicine 2020-11 Yes [id number] .6mg Take 1 U nivers 0.6 mg 0-07 tablet by ity of tablet 00:00: mouth [place] 00 daily. Medical Branch colchicine 2020-11 Yes [id number] .6mg Take 1 U nivers 0.6 mg 0-07 tablet by ity of tablet 00:00: mouth [place] 00 daily. Medical Branch colchicine 2020-11 Yes [id number] .6mg Take 1 U nivers 0.6 mg 0-07 tablet by ity of tablet 00:00: mouth [place] 00 daily. Medical Branch colchicine 2020-11 Yes [id number] .6mg Take 1 U nivers 0.6 mg 0-07 tablet by ity of tablet 00:00: mouth [place] 00 daily. Medical Branch colchicine 2020-11 Yes [id number] .6mg Take 1 U nivers 0.6 mg 0-07 tablet by ity of tablet 00:00: mouth [place] 00 daily. Medical Branch colchicine 2020-11 Yes [id number] .6mg Take 1 U nivers 0.6 mg 0-07 tablet by ity of tablet 00:00: mouth [place] 00 daily. Medical Branch colchicine 2020-11 Yes [id number] .6mg Take 1 U nivers 0.6 mg 0-07 tablet by ity of tablet 00:00: mouth [place] 00 daily. Medical Branch colchicine 2020-11 Yes [id number] .6mg Take 1 U nivers 0.6 mg 0-07 tablet by ity of tablet 00:00: mouth [place] 00 daily. Medical Branch colchicine 2020-11 Yes [id number] .6mg Take 1 U nivers 0.6 mg 0-07 tablet by ity of tablet 00:00: mouth [place] 00 daily. Medical Branch colchicine 2020-11 Yes [id number] .6mg Take 1 U nivers 0.6 mg 0-07 tablet by ity of tablet 00:00: mouth [place] 00 daily. Medical Branch colchicine 2020-11 Yes [id number] .6mg Take 1 U nivers 0.6 mg 0-07 tablet by ity of tablet 00:00: mouth [place] 00 daily. Medical Branch colchicine 2020-11 Yes [id number] .6mg Take 1 U nivers 0.6 mg 0-07 tablet by ity of tablet 00:00: mouth [place] 00 daily. Medical Branch colchicine 2020-11 Yes [id number] .6mg Take 1 U nivers 0.6 mg 0-07 tablet by ity of tablet 00:00: mouth [place] 00 daily. Medical Branch colchicine 2020-11- No [id number] .6mg Take 1 Univers 0.6 mg 0-07 -19 tablet by ity of tablet 00:00: 00:00 mouth [place] 00 :00 daily. Medical Branch TRUEPLUS 0 Yes USE TWICE Univ ers INSULIN 1 9-14 DAILY ity of mL 30 gauge 00:00: [place] x 5/16 [facility] Branch TRUEPLUS 0 Yes USE TWICE Univ ers INSULIN 1 9-14 DAILY ity of mL 30 gauge 00:00: [place] x 5/16 Syrg Medical Branch TRUEPLUS 2020-0 Yes USE TWICE Univ ers INSULIN 1 9-14 DAILY ity of mL 30 gauge 00:00: [place] x 5/16 [facility] Branch TRUEPLUS 2020-0 Yes USE TWICE Univ ers INSULIN 1 9-14 DAILY ity of mL 30 gauge 00:00: [place] x 5/16 Syrg Medical Branch TRUEPLUS 2020-0 Yes USE TWICE Univ ers INSULIN 1 9-14 DAILY ity of mL 30 gauge 00:00: [place] x 5/16 Syrg 00 [facility] Branch TRUEPLUS 2020-0 Yes USE TWICE Univ ers INSULIN 1 9-14 DAILY ity of mL 30 gauge 00:00: [place] x 5/16 [facility] Branch TRUEPLUS 2020-0 Yes USE TWICE Univ [...] by mouth ity of tablet 09:38: at [place] [address] bedtime. Medical Branch mesalamine 2020-0 Yes 1.5g Take 1.5 g U nivers 0.375 gram 7-14 by mouth ity o f 24 hr 09:38: daily. [place] [address] Medical Branch mirtazapine 2020-0 Yes 15mg Take 15 mg Univers 15 mg 7-14 by mouth ity of tablet 09:38: at [place] [address] bedtime. Medical Branch mesalamine 2020-0 Yes 1.5g Take 1.5 g U nivers 0.375 gram 7-14 by mouth ity o f 24 hr 09:38: daily. [place] capsule 49 Medical Branch mirtazapine 2020-0 Yes 15mg Take 15 mg Univers 15 mg 7-14 by mouth ity of tablet 09:38: at [place] [address] bedtime. Medical Branch mesalamine 2020-0 Yes 1.5g Take 1.5 g U nivers 0.375 gram 7-14 by mouth ity o f 24 hr 09:38: daily. [place] capsule 49 Medical Branch mirtazapine 2020-0 Yes 15mg Take 15 mg [facility] 15 mg 7-14 by mouth ity of tablet 09:38: at [place] [address] bedtime. Medical Branch mesalamine 2020-0 Yes 1.5g Take 1.5 g U nivers 0.375 gram 7-14 by mouth ity o f 24 hr 09:38: daily. [place] capsule 49 Medical Branch mirtazapine 2020-0 Yes 15mg Take 15 mg Univers 15 mg 7-14 by mouth ity of tablet 09:38: at [place] [address] bedtime. Medical Branch mesalamine 2020-0 Yes 1.5g Take 1.5 g U nivers 0.375 gram 7-14 by mouth ity o f 24 hr 09:38: daily. [place] capsule 49 Medical Branch mirtazapine 2020-0 Yes 15mg Take 15 mg [facility] 15 mg 7-14 by mouth ity of tablet 09:38: at [place] [address] bedtime. Medical Branch mesalamine 2020-0 Yes 1.5g Take 1.5 g U nivers 0.375 gram 7-14 by mouth ity o f 24 hr 09:38: daily. [place] capsule 49 Medical Branch mirtazapine 2020-0 Yes 15mg Take 15 mg [facility] 15 mg 7-14 by mouth ity of tablet 09:38: at [place] [address] bedtime. Medical Branch mesalamine 2020-0 Yes 1.5g Take 1.5 g U nivers 0.375 gram 7-14 by mouth ity o f 24 hr 09:38: daily. [place] capsule 49 Medical Branch mirtazapine 2020-0 Yes 15mg Take 15 mg Univers 15 mg 7-14 by mouth ity of tablet 09:38: at [place] [address] bedtime. Medical Branch mesalamine 2020-0 Yes 1.5g Take 1.5 g U nivers 0.375 gram 7-14 by mouth ity o f 24 hr 09:38: daily. [place] capsule 49 Medical Branch mirtazapine 2020-0 Yes 15mg Take 15 mg Univers 15 mg 7-14 by mouth ity of tablet 09:38: at [place] [address] bedtime. Medical Branch mesalamine 2020-0 Yes 1.5g Take 1.5 g U nivers 0.375 gram 7-14 by mouth ity o f 24 hr 09:38: daily. [place] capsule 49 Medical Branch mirtazapine 2020-0 Yes 15mg Take 15 mg Univers 15 mg 7-14 by mouth ity of tablet 09:38: at [place] [address] bedtime. Medical Branch mesalamine 2020-0 Yes 1.5g Take 1.5 g U nivers 0.375 gram 7-14 by mouth ity o f 24 hr 09:38: daily. [place] capsule 49 Medical Branch mirtazapine 2020-0 Yes 15mg Take 15 mg Univers 15 mg 7-14 by mouth ity of tablet 09:38: at [place] [address] bedtime. Medical Branch mesalamine 2020-0 Yes 1.5g Take 1.5 g U nivers 0.375 gram 7-14 by mouth ity o f 24 hr 09:38: daily. [place] capsule 49 Medical Branch mirtazapine 2020-0 Yes 15mg Take 15 mg Univers 15 mg 7-14 by mouth ity of tablet 09:38: at [place] [address] bedtime. Medical Branch mesalamine 2020-0 Yes 1.5g Take 1.5 g U nivers 0.375 gram 7-14 by mouth ity o f 24 hr 09:38: daily. [place] capsule 49 Medical Branch mirtazapine 2020-0 Yes 15mg Take 15 mg Univers 15 mg 7-14 by mouth ity of tablet 09:38: at [place] [address] bedtime. Medical Branch mesalamine 2020-0 Yes 1.5g Take 1.5 g U nivers 0.375 gram 7-14 by mouth ity o f 24 hr 09:38: daily. [place] capsule 49 Medical Branch mirtazapine 2020-0 Yes 15mg Take 15 mg Univers 15 mg 7-14 by mouth ity of tablet 09:38: at [place] [address] bedtime. Medical Branch mesalamine 2020-0 Yes 1.5g Take 1.5 g U nivers 0.375 gram 7-14 by mouth ity o f 24 hr 09:38: daily. [place] capsule 49 Medical Branch mirtazapine 2020-0 Yes 15mg Take 15 mg Univers 15 mg 7-14 by mouth ity of tablet 09:38: at [place] [address] bedtime. Medical Branch mesalamine 2020-0 Yes 1.5g Take 1.5 g U nivers 0.375 gram 7-14 by mouth ity o f 24 hr 09:38: daily. [place] capsule 49 Medical Branch mirtazapine 2020-0 Yes 15mg Take 15 mg Univers 15 mg 7-14 by mouth ity of tablet 09:38: at [place] [address] bedtime. Medical Branch mesalamine 2020-0 Yes 1.5g Take 1.5 g U nivers 0.375 gram 7-14 by mouth ity o f 24 hr 09:38: daily. [place] capsule 49 Medical Branch mirtazapine 2020-0 Yes 15mg Take 15 mg Univers 15 mg 7-14 by mouth ity of tablet 09:38: at [place] [address] bedtime. Medical Branch mesalamine 2020-0 Yes 1.5g Take 1.5 g U nivers 0.375 gram 7-14 by mouth ity o f 24 hr 09:38: daily. [place] capsule 49 Medical Branch mirtazapine 2020-0 Yes 15mg Take 15 mg Univers 15 mg 7-14 by mouth ity of tablet 09:38: at [place] [address] bedtime. Medical Branch mesalamine 2020-0 Yes 1.5g Take 1.5 g U nivers 0.375 gram 7-14 by mouth ity o f 24 hr 09:38: daily. [place] capsule 49 Medical Branch mirtazapine 2020-0 Yes 15mg Take 15 mg Univers 15 mg 7-14 by mouth ity of tablet 09:38: at [place] [address] bedtime. Medical Branch mesalamine 2020-0 Yes 1.5g Take 1.5 g U nivers 0.375 gram 7-14 by mouth ity o f 24 hr 09:38: daily. [place] capsule 49 Medical Branch mirtazapine 2020-0 Yes 15mg Take 15 mg Univers 15 mg 7-14 by mouth ity of tablet 09:38: at [place] [address] bedtime. Medical [place] mesalamine 2020-0 Yes 1.5g Take 1.5 g U nivers 0.375 gram 7-14 by mouth ity o f 24 hr 09:38: daily. [place] capsule 49 Medical Branch mirtazapine 2020-0 Yes 15mg Take 15 mg Univers 15 mg 7-14 by mouth ity of tablet 09:38: at [place] [address] bedtime. Medical Branch mesalamine 2020-0 Yes 1.5g Take 1.5 g U nivers 0.375 gram 7-14 by mouth ity o f 24 hr 09:38: daily. [place] capsule 49 Medical Branch mirtazapine 2020-0 Yes 15mg Take 15 mg Univers 15 mg 7-14 by mouth ity of tablet 09:38: at [place] [address] bedtime. Medical Branch mesalamine 2020-0 Yes 1.5g Take 1.5 g U nivers 0.375 gram 7-14 by mouth ity o f 24 hr 09:38: daily. [place] capsule 49 Medical Branch mirtazapine 2020-0 Yes 15mg Take 15 mg Univers 15 mg 7-14 by mouth ity of tablet 09:38: at [place] [address] bedtime. Medical Branch mesalamine 2020-0 Yes 1.5g Take 1.5 g U nivers 0.375 gram 7-14 by mouth ity o f 24 hr 09:38: daily. [place] [facility] 49 Medical Branch mirtazapine 2020-0 Yes 15mg Take 15 mg Univers 15 mg 7-14 by mouth ity of tablet 09:38: at [place] [address] bedtime. Medical Branch mesalamine 2020-0 Yes 1.5g Take 1.5 g U nivers 0.375 gram 7-14 by mouth ity o f 24 hr 09:38: daily. [place] [facility] 49 Medical Branch mirtazapine 2020-0 Yes 15mg Take 15 mg Univers 15 mg 7-14 by mouth ity of tablet 09:38: at [place] [address] bedtime. Medical Branch mesalamine 2020-0 Yes 1.5g Take 1.5 g U nivers 0.375 gram 7-14 by mouth ity o f 24 hr 09:38: daily. [place] capsule 49 Medical Branch mirtazapine 2020-0 Yes 15mg Take 15 mg Univers 15 mg 7-14 by mouth ity of tablet 09:38: at [place] [address] bedtime. Medical Branch mesalamine 2020-0 Yes 1.5g Take 1.5 g U nivers 0.375 gram 7-14 by mouth ity o f 24 hr 09:38: daily. [place] capsule 49 Medical Branch mirtazapine 2020-0 Yes 15mg Take 15 mg Univers 15 mg 7-14 by mouth ity of tablet 09:38: at [place] [address] bedtime. Medical Branch mesalamine 2020-0 Yes 1.5g Take 1.5 g U nivers 0.375 gram 7-14 by mouth ity o f 24 hr 09:38: daily. [place] capsule 49 Medical Branch mirtazapine 2020-0 Yes 15mg Take 15 mg Univers 15 mg 7-14 by mouth ity of tablet 09:38: at [place] [address] bedtime. Medical Branch mesalamine 2020-0 Yes 1.5g Take 1.5 g U nivers 0.375 gram 7-14 by mouth ity o f 24 hr 09:38: daily. [place] [facility] 49 Medical Branch mirtazapine 2020-0 Yes 15mg Take 15 mg Univers 15 mg 7-14 by mouth ity of tablet 09:38: at [place] [address] bedtime. Medical Branch mesalamine 2020-0 Yes 1.5g Take 1.5 g U nivers 0.375 gram 7-14 by mouth ity o f 24 hr 09:38: daily. [place] capsule 49 Medical Branch mirtazapine 2020-0 Yes 15mg Take 15 mg Univers 15 mg 7-14 by mouth ity of tablet 09:38: at [place] [address] bedtime. Medical Branch mesalamine 2020-0 Yes 1.5g Take 1.5 g U nivers 0.375 gram 7-14 by mouth ity o f 24 hr 09:38: daily. [place] [facility] 49 Medical Branch mirtazapine 2020-0 Yes 15mg Take 15 mg Univers 15 mg 7-14 by mouth ity of tablet 09:38: at [place] [address] bedtime. Medical Branch mesalamine 2020-0 Yes 1.5g Take 1.5 g U nivers 0.375 gram 7-14 by mouth ity o f 24 hr 09:38: daily. [place] capsule 49 Medical Branch mirtazapine 2020-0 Yes 15mg Take 15 mg Univers 15 mg 7-14 by mouth ity of tablet 09:38: at [place] [address] bedtime. Medical Branch mesalamine 2020-0 Yes 1.5g Take 1.5 g U nivers 0.375 gram 7-14 by mouth ity o f 24 hr 09:38: daily. [place] capsule 49 Medical Branch mirtazapine 2020-0 Yes 15mg Take 15 mg Univers 15 mg 7-14 by mouth ity of tablet 09:38: at [place] [address] bedtime. Medical Branch mesalamine 2020-0 Yes 1.5g Take 1.5 g U nivers 0.375 gram 7-14 by mouth ity o f 24 hr 09:38: daily. [place] capsule 49 Medical Branch mirtazapine 2020-0 Yes 15mg Take 15 mg Univers 15 mg 7-14 by mouth ity of tablet 09:38: at [place] [address] bedtime. Medical Branch mesalamine 2020-0 Yes 1.5g Take 1.5 g U nivers 0.375 gram 7-14 by mouth ity o f 24 hr 09:38: daily. [place] [facility] 49 Medical Branch mirtazapine 2020-0 Yes 15mg Take 15 mg Univers 15 mg 7-14 by mouth ity of tablet 09:38: at [place] [address] bedtime. Medical [place] mesalamine 2020-0 Yes 1.5g Take 1.5 g U nivers 0.375 gram 7-14 by mouth ity o f 24 hr 09:38: daily. [place] [facility] 49 Medical Branch mirtazapine 2020-0 Yes 15mg Take 15 mg Univers 15 mg 7-14 by mouth ity of tablet 09:38: at [place] [address] bedtime. Medical [place] mesalamine 2020-0 Yes 1.5g Take 1.5 g U nivers 0.375 gram 7-14 by mouth ity o f 24 hr 09:38: daily. [place] [facility] 49 Medical [place] mirtazapine 2020-0 Yes 15mg Take 15 mg Univers 15 mg 7-14 by mouth ity of tablet 09:38: at [place] [address] bedtime. Medical [place] mesalamine 2020-0 Yes 1.5g Take 1.5 g U nivers 0.375 gram 7-14 by mouth ity o f 24 hr 09:38: daily. [place] capsule 49 Medical Branch mirtazapine 2020-0 Yes 15mg Take 15 mg Univers 15 mg 7-14 by mouth ity of tablet 09:38: at [place] [address] bedtime. [facility] mesalamine 2020-0 Yes 1.5g Take 1.5 g U nivers 0.375 gram 7-14 by mouth ity o f 24 hr 09:38: daily. [place] capsule 49 Medical Branch mirtazapine 2020-0 Yes 15mg Take 15 mg Univers 15 mg 7-14 by mouth ity of tablet 09:38: at [place] [address] bedtime. Medical Branch mesalamine 2020-0 Yes 1.5g Take 1.5 g U nivers 0.375 gram 7-14 by mouth ity o f 24 hr 09:38: daily. [place] capsule 49 Medical Branch mirtazapine 2020-0 Yes 15mg Take 15 mg Univers 15 mg 7-14 by mouth ity of tablet 09:38: at [place] [address] bedtime. Medical Branch mesalamine 2020-0 Yes 1.5g Take 1.5 g U nivers 0.375 gram 7-14 by mouth ity o f 24 hr 09:38: daily. [place] capsule 49 Medical Branch mirtazapine 2020-0 Yes 15mg Take 15 mg Univers 15 mg 7-14 by mouth ity of tablet 09:38: at [place] [address] bedtime. Medical [place] mesalamine 2020-0 Yes 1.5g Take 1.5 g U nivers 0.375 gram 7-14 by mouth ity o f 24 hr 09:38: daily. [place] [facility] 49 Medical Branch mirtazapine 2020-0 Yes 15mg Take 15 mg Univers 15 mg 7-14 by mouth ity of tablet 09:38: at [place] [address] bedtime. Medical [place] mesalamine 2020-0 Yes 1.5g Take 1.5 g U nivers 0.375 gram 7-14 by mouth ity o f 24 hr 09:38: daily. [place] [facility] 49 Medical [place] mirtazapine 2020-0 Yes 15mg Take 15 mg Univers 15 mg 7-14 by mouth ity of tablet 09:38: at [place] [address] bedtime. Medical [place] mesalamine 2020-0 Yes 1.5g Take 1.5 g U nivers 0.375 gram 7-14 by mouth ity o f 24 hr 09:38: daily. [place] capsule 49 Medical Branch mirtazapine 2020-0 Yes 15mg Take 15 mg Univers 15 mg 7-14 by mouth ity of tablet 09:38: at [place] [address] bedtime. Medical [place] mesalamine 2020-0 Yes 1.5g Take 1.5 g U nivers 0.375 gram 7-14 by mouth ity o f 24 hr 09:38: daily. [place] [facility] 49 Medical Branch mirtazapine 2020-0 Yes 15mg Take 15 mg Univers 15 mg 7-14 by mouth ity of tablet 09:38: at [place] [address] bedtime. Medical Branch mesalamine 2020-0 Yes 1.5g Take 1.5 g U nivers 0.375 gram 7-14 by mouth ity o f 24 hr 09:38: daily. [place] [facility] 49 Medical Branch mirtazapine 2020-0 Yes 15mg Take 15 mg Univers 15 mg 7-14 by mouth ity of tablet 09:38: at [place] [address] bedtime. Medical Branch mesalamine 2020-0 Yes 1.5g Take 1.5 g U nivers 0.375 gram 7-14 by mouth ity o f 24 hr 09:38: daily. [place] [facility] 49 Medical Branch mirtazapine 2020-0 Yes 15mg Take 15 mg Univers 15 mg 7-14 by mouth ity of tablet 09:38: at [place] [address] bedtime. Medical Branch mesalamine 2020-0 Yes 1.5g Take 1.5 g U nivers 0.375 gram 7-14 by mouth ity o f 24 hr 09:38: daily. [place] [address] [facility] Branch mirtazapine 2020-0 Yes 15mg Take 15 mg [facility] 15 mg 7-14 by mouth ity of tablet 09:38: at [place] [address] bedtime. Medical Branch mesalamine 2020-0 Yes 1.5g Take 1.5 g U nivers 0.375 gram 7-14 by mouth ity o f 24 hr 09:38: daily. [place] [address] [facility] Branch mirtazapine 2020-0 Yes 15mg Take 15 mg [facility] 15 mg 7-14 by mouth ity of tablet 09:38: at [place] [address] bedtime. Medical Branch mesalamine 2020-0 Yes 1.5g Take 1.5 g U nivers 0.375 gram 7-14 by mouth ity o f 24 hr 09:38: daily. [facility] 49 Medical Branch mirtazapine 2020-0 Yes 15mg Take 15 mg Univers 15 mg 7-14 by mouth ity of tablet 09:38: at [place] [address] bedtime. Medical Branch mesalamine 2020-0 Yes 1.5g Take 1.5 g U nivers 0.375 gram 7-14 by mouth ity o f 24 hr 09:38: daily. [facility] 49 Medical Branch mirtazapine 2020-0 Yes 15mg Take 15 mg Univers 15 mg 7-14 by mouth ity of tablet 09:38: at [place] [address] bedtime. Medical Branch mesalamine 2020-0 Yes 1.5g Take 1.5 g U nivers 0.375 gram 7-14 by mouth ity o f 24 hr 09:38: daily. [facility] 49 Medical Branch mirtazapine 2020-0 Yes 15mg Take 15 mg Univers 15 mg 7-14 by mouth ity of tablet 09:38: at [place] [address] bedtime. Medical Branch mesalamine 2020-0 Yes 1.5g Take 1.5 g U nivers 0.375 gram 7-14 by mouth ity o f 24 hr 09:38: daily. [facility] 49 Medical Branch mirtazapine 2020-0 Yes 15mg Take 15 mg Univers 15 mg 7-14 by mouth ity of tablet 09:38: at [place] [address] bedtime. Medical Branch mesalamine 2020-0 Yes 1.5g Take 1.5 g U nivers 0.375 gram 7-14 by mouth ity o f 24 hr 09:38: daily. [facility] 49 Medical Branch mirtazapine 2020-0 Yes 15mg Take 15 mg [facility] 15 mg 7-14 by mouth ity of tablet 09:38: at [place] [address] bedtime. Medical Branch mesalamine 2020-0 Yes 1.5g Take 1.5 g U nivers 0.375 gram 7-14 by mouth ity o f 24 hr 09:38: daily. [facility] 49 Medical Branch mirtazapine 2020-0 Yes 15mg Take 15 mg Univers 15 mg 7-14 by mouth ity of tablet 09:38: at [place] [address] bedtime. Medical [place] mesalamine 2020-0 Yes 1.5g Take 1.5 g U nivers 0.375 gram 7-14 by mouth ity o f 24 hr 09:38: daily. [facility] 49 Medical Branch mirtazapine 2020-0 Yes 15mg Take 15 mg [facility] 15 mg 7-14 by mouth ity of tablet 09:38: at [place] [address] bedtime. Medical [place] mesalamine 2020-0 Yes 1.5g Take 1.5 g U nivers 0.375 gram 7-14 by mouth ity o f 24 hr 09:38: daily. [facility] 49 [facility] mirtazapine 2020-0 Yes 15mg Take 15 mg Univers 15 mg 7-14 by mouth ity of tablet 09:38: at [place] [address] bedtime. [facility] mesalamine 2020-0 Yes 1.5g Take 1.5 g U nivers 0.375 gram 7-14 by mouth ity o f 24 hr 09:38: daily. [place] capsule 49 [facility] mirtazapine 2020-0 Yes 15mg Take 15 mg Univers 15 mg 7-14 by mouth ity of tablet 09:38: at [place] [address] bedtime. [facility] mesalamine 2020-0 Yes 1.5g Take 1.5 g U nivers 0.375 gram 7-14 by mouth ity o f 24 hr 09:38: daily. [facility] 49 [facility] predniSONE 2020-0 Yes 10mg Take 10 mg U nivers 10 mg 6-22 by mouth ity of tablet 00:00: daily. [address] predniSONE 1-0 Yes 10mg Take 10 mg U nivers 10 mg 6-22 by mouth ity of tablet 00:00: daily. [place] [facility] predniSONE 1-0 Yes 10mg Take 10 mg U nivers 10 mg 6-22 by mouth ity of tablet 00:00: daily. [place] [facility] predniSONE 1-0 Yes 10mg Take 10 mg U nivers 10 mg 6-22 by mouth ity of tablet 00:00: daily. [place] [facility] predniSONE 1-0 Yes 10mg Take 10 mg U nivers 10 mg 6-22 by mouth ity of tablet 00:00: daily. [address] predniSONE 1-0 Yes 10mg Take 10 mg U nivers 10 mg 6-22 by mouth ity of tablet 00:00: daily. [place] [facility] predniSONE 1-0 Yes 10mg Take 10 mg U nivers 10 mg 6-22 by mouth ity of tablet 00:00: daily. [place] [facility] predniSONE 2021-0 Yes 10mg Take 10 mg U nivers 10 mg 6-22 by mouth ity of tablet 00:00: daily. [address] predniSONE 2021-0 Yes 10mg Take 10 mg U nivers 10 mg 6-22 by mouth ity of tablet 00:00: daily. [address] predniSONE 2021-0 Yes 10mg Take 10 mg U nivers 10 mg 6-22 by mouth ity of tablet 00:00: daily. [place] [facility] predniSONE 2021-0 Yes 10mg Take 10 mg U nivers 10 mg 6-22 by mouth ity of tablet 00:00: daily. [place] [facility] Branch predniSONE 2021-0 Yes 10mg Take 10 mg U nivers 10 mg 6-22 by mouth ity of tablet 00:00: daily. [place] [facility] predniSONE 2021-0 Yes 10mg Take 10 mg U nivers 10 mg 6-22 by mouth ity of tablet 00:00: daily. [place] [facility] Branch predniSONE 2021-0 Yes 10mg Take 10 mg U nivers 10 mg 6-22 by mouth ity of tablet 00:00: daily. [place] [facility] predniSONE 2021-0 Yes 10mg Take 10 mg U nivers 10 mg 6-22 by mouth ity of tablet 00:00: daily. [place] [facility] predniSONE 2021-0 Yes 10mg Take 10 mg U nivers 10 mg 6-22 by mouth ity of tablet 00:00: daily. [place] [facility] predniSONE 2021-0 Yes 10mg Take 10 mg U nivers 10 mg 6-22 by mouth ity of tablet 00:00: daily. [place] [facility] predniSONE 2021-0 Yes 10mg Take 10 mg U nivers 10 mg 6-22 by mouth ity of tablet 00:00: daily. [place] [facility] predniSONE 2021-0 Yes 10mg Take 10 mg U nivers 10 mg 6-22 by mouth ity of tablet 00:00: daily. [place] [facility] predniSONE 2021-0 Yes 10mg Take 10 mg U nivers 10 mg 6-22 by mouth ity of tablet 00:00: daily. [place] [facility] predniSONE 2021-0 Yes 10mg Take 10 mg U nivers 10 mg 6-22 by mouth ity of tablet 00:00: daily. [address] predniSONE 2021-0 Yes 10mg Take 10 mg U nivers 10 mg 6-22 by mouth ity of tablet 00:00: daily. [place] [facility] predniSONE 2021-0 Yes 10mg Take 10 mg U nivers 10 mg 6-22 by mouth ity of tablet 00:00: daily. [address] predniSONE 2021-0 Yes 10mg Take 10 mg U nivers 10 mg 6-22 by mouth ity of tablet 00:00: daily. [place] [address] [facility] predniSONE 2021-0 Yes 10mg Take 10 mg U nivers 10 mg 6-22 by mouth ity of tablet 00:00: daily. [place] [facility] Branch predniSONE 2021-0 Yes 10mg Take 10 mg U nivers 10 mg 6-22 by mouth ity of tablet 00:00: daily. [place] [facility] predniSONE 2021-0 Yes 10mg Take 10 mg U nivers 10 mg 6-22 by mouth ity of tablet 00:00: daily. [place] [facility] predniSONE 2021-0 Yes 10mg Take 10 mg U nivers 10 mg 6-22 by mouth ity of tablet 00:00: daily. [place] [facility] predniSONE 2021-0 Yes 10mg Take 10 mg U nivers 10 mg 6-22 by mouth ity of tablet 00:00: daily. [place] [facility] predniSONE 2021-0 Yes 10mg Take 10 mg U nivers 10 mg 6-22 by mouth ity of tablet 00:00: daily. [place] [facility] predniSONE 2021-0 Yes 10mg Take 10 mg U nivers 10 mg 6-22 by mouth ity of tablet 00:00: daily. [place] [facility] predniSONE 2021-0 Yes 10mg Take 10 mg U nivers 10 mg 6-22 by mouth ity of tablet 00:00: daily. [place] [facility] predniSONE 2021-0 Yes 10mg Take 10 mg U nivers 10 mg 6-22 by mouth ity of tablet 00:00: daily. [place] [facility] predniSONE 2021-0 Yes 10mg Take 10 mg U nivers 10 mg 6-22 by mouth ity of tablet 00:00: daily. [place] [facility] predniSONE 2021-0 Yes 10mg Take 10 mg U nivers 10 mg 6-22 by mouth ity of tablet 00:00: daily. [place] [facility] predniSONE 2021-0 Yes 10mg Take 10 mg U nivers 10 mg 6-22 by mouth ity of tablet 00:00: daily. [address] predniSONE 2021-0 Yes 10mg Take 10 mg U nivers 10 mg 6-22 by mouth ity of tablet 00:00: daily. [address] predniSONE 2021-0 Yes 10mg Take 10 mg U nivers 10 mg 6-22 by mouth ity of tablet 00:00: daily. [address] predniSONE 2021-0 Yes 10mg Take 10 mg U nivers 10 mg 6-22 by mouth ity of tablet 00:00: daily. [place] [facility] Branch predniSONE 2021-0 Yes 10mg Take 10 mg U nivers 10 mg 6-22 by mouth ity of tablet 00:00: daily. [place] [facility] predniSONE 2021-0 Yes 10mg Take 10 mg U nivers 10 mg 6-22 by mouth ity of tablet 00:00: daily. [place] [facility] predniSONE 2021-0 Yes 10mg Take 10 mg U nivers 10 mg 6-22 by mouth ity of tablet 00:00: daily. [place] [facility] predniSONE 2021-0 Yes 10mg Take 10 mg U nivers 10 mg 6-22 by mouth ity of tablet 00:00: daily. [place] [facility] predniSONE 2021-0 Yes 10mg Take 10 mg U nivers 10 mg 6-22 by mouth ity of tablet 00:00: daily. [place] [facility] predniSONE 2021-0 Yes 10mg Take 10 mg U nivers 10 mg 6-22 by mouth ity of tablet 00:00: daily. [place] [facility] predniSONE 2021-0 Yes 10mg Take 10 mg U nivers 10 mg 6-22 by mouth ity of tablet 00:00: daily. [place] [facility] predniSONE 2021-0 Yes 10mg Take 10 mg U nivers 10 mg 6-22 by mouth ity of tablet 00:00: daily. [place] [facility] predniSONE 2021-0 Yes 10mg Take 10 mg U nivers 10 mg 6-22 by mouth ity of tablet 00:00: daily. [address] predniSONE 2021-0 Yes 10mg Take 10 mg U nivers 10 mg 6-22 by mouth ity of tablet 00:00: daily. [address] predniSONE 2021-0 Yes 10mg Take 10 mg U nivers 10 mg 6-22 by mouth ity of tablet 00:00: daily. [address] predniSONE 2021-0 Yes 10mg Take 10 mg U nivers 10 mg 6-22 by mouth ity of tablet 00:00: daily. [address] predniSONE 2021-0 Yes 10mg Take 10 mg U nivers 10 mg 6-22 by mouth ity of tablet 00:00: daily. [address] predniSONE 2021-0 Yes 10mg Take 10 mg U nivers 10 mg 6-22 by mouth ity of tablet 00:00: daily. [place] [facility] predniSONE 2021-0 Yes 10mg Take 10 mg U nivers 10 mg 6-22 by mouth ity of tablet 00:00: daily. [place] [facility] predniSONE 2021-0 Yes 10mg Take 10 mg U nivers 10 mg 6-22 by mouth ity of tablet 00:00: daily. [place] [facility] predniSONE 2021-0 Yes 10mg Take 10 mg U nivers 10 mg 6-22 by mouth ity of tablet 00:00: daily. [place] [facility] predniSONE 2021-0 Yes 10mg Take 10 mg U nivers 10 mg 6-22 by mouth ity of tablet 00:00: daily. [place] [facility] predniSONE 2021-0 Yes 10mg Take 10 mg U nivers 10 mg 6-22 by mouth ity of tablet 00:00: daily. [address] spironolact 2021-0 Yes 25mg Take 25 mg Univers one 25 mg 6-08 by mouth ity of tablet 00:00: daily. [place] [facility] spironolact 2021-0 Yes 25mg Take 25 mg Univers one 25 mg 6-08 by mouth ity of tablet 00:00: daily. [place] [facility] spironolact 1-0 Yes 25mg Take 25 mg Univers one 25 mg 6-08 by mouth ity of tablet 00:00: daily. [place] [facility] spironolact 1-0 Yes 25mg Take 25 mg Univers one 25 mg 6-08 by mouth ity of tablet 00:00: daily. [place] [facility] spironolact 2021-0 Yes 25mg Take 25 mg Univers one 25 mg 6-08 by mouth ity of tablet 00:00: daily. [place] [facility] spironolact 1-0 Yes 25mg Take 25 mg Univers one 25 mg 6-08 by mouth ity of tablet 00:00: daily. [place] [facility] spironolact 1-0 Yes 25mg Take 25 mg Univers one 25 mg 6-08 by mouth ity of tablet 00:00: daily. [address] spironolact 2021-0 Yes 25mg Take 25 mg Univers one 25 mg 6-08 by mouth ity of tablet 00:00: daily. [address] spironolact 2021-0 Yes 25mg Take 25 mg Univers one 25 mg 6-08 by mouth ity of tablet 00:00: daily. [place] [facility] spironolact 2020-0 Yes 25mg Take 25 mg Univers one 25 mg 6-08 by mouth ity of tablet 00:00: daily. [place] [facility] spironolact 202-0 Yes 25mg Take 25 mg Univers one 25 mg 6-08 by mouth ity of tablet 00:00: daily. [place] [facility] spironolact 2020-0 Yes 25mg Take 25 mg Univers one 25 mg 6-08 by mouth ity of tablet 00:00: daily. [place] [facility] spironolact 2020-0 Yes 25mg Take 25 mg Univers one 25 mg 6-08 by mouth ity of tablet 00:00: daily. [place] [facility] spironolact 2020-0 Yes 25mg Take 25 mg Univers one 25 mg 6-08 by mouth ity of tablet 00:00: daily. [place] [facility] spironolact 2020-0 Yes 25mg Take 25 mg Univers one 25 mg 6-08 by mouth ity of tablet 00:00: daily. [place] [facility] spironolact 2020-0 Yes 25mg Take 25 mg Univers one 25 mg 6-08 by mouth ity of tablet 00:00: daily. [place] [facility] spironolact 2020-0 Yes 25mg Take 25 mg Univers one 25 mg 6-08 by mouth ity of tablet 00:00: daily. [place] [facility] spironolact 2020-0 Yes 25mg Take 25 mg Univers one 25 mg 6-08 by mouth ity of tablet 00:00: daily. [place] [facility] spironolact 2020-0 Yes 25mg Take 25 mg Univers one 25 mg 6-08 by mouth ity of tablet 00:00: daily. [place] [facility] spironolact 2020-0 Yes 25mg Take 25 mg Univers one 25 mg 6-08 by mouth ity of tablet 00:00: daily. [address] spironolact 2020-0 Yes 25mg Take 25 mg Univers one 25 mg 6-08 by mouth ity of tablet 00:00: daily. [address] spironolact 2020-0 Yes 25mg Take 25 mg Univers one 25 mg 6-08 by mouth ity of tablet 00:00: daily. [place] [facility] spironolact 2020-0 Yes 25mg Take 25 mg Univers one 25 mg 6-08 by mouth ity of tablet 00:00: daily. [place] [facility] spironolact 2020-0 Yes 25mg Take 25 mg Univers one 25 mg 6-08 by mouth ity of tablet 00:00: daily. [place] [facility] spironolact 2020-0 Yes 25mg Take 25 mg Univers one 25 mg 6-08 by mouth ity of tablet 00:00: daily. [place] [facility] spironolact 2020-0 Yes 25mg Take 25 mg Univers one 25 mg 6-08 by mouth ity of tablet 00:00: daily. [place] [facility] spironolact 2020-0 Yes 25mg Take 25 mg Univers one 25 mg 6-08 by mouth ity of tablet 00:00: daily. [place] [facility] spironolact 2020-0 Yes 25mg Take 25 mg Univers one 25 mg 6-08 by mouth ity of tablet 00:00: daily. [place] [facility] spironolact 2020-0 Yes 25mg Take 25 mg Univers one 25 mg 6-08 by mouth ity of tablet 00:00: daily. [place] [facility] spironolact 2020-0 Yes 25mg Take 25 mg Univers one 25 mg 6-08 by mouth ity of tablet 00:00: daily. [place] [facility] spironolact 2020-0 Yes 25mg Take 25 mg Univers one 25 mg 6-08 by mouth ity of tablet 00:00: daily. [place] [facility] spironolact 2020-0 Yes 25mg Take 25 mg Univers one 25 mg 6-08 by mouth ity of tablet 00:00: daily. [place] [facility] spironolact 2020-0 Yes 25mg Take 25 mg Univers one 25 mg 6-08 by mouth ity of tablet 00:00: daily. [place] [facility] spironolact 2020-0 Yes 25mg Take 25 mg Univers one 25 mg 6-08 by mouth ity of tablet 00:00: daily. [place] [facility] spironolact 2020-0 Yes 25mg Take 25 mg Univers one 25 mg 6-08 by mouth ity of tablet 00:00: daily. [place] [facility] spironolact 2020-0 Yes 25mg Take 25 mg Univers one 25 mg 6-08 by mouth ity of tablet 00:00: daily. [place] [facility] spironolact 2020-0 Yes 25mg Take 25 mg Univers one 25 mg 6-08 by mouth ity of tablet 00:00: daily. [place] [facility] spironolact 202-0 Yes 25mg Take 25 mg Univers one 25 mg 6-08 by mouth ity of tablet 00:00: daily. [place] [facility] spironolact 2020-0 Yes 25mg Take 25 mg Univers one 25 mg 6-08 by mouth ity of tablet 00:00: daily. [place] [facility] spironolact 2020-0 Yes 25mg Take 25 mg Univers one 25 mg 6-08 by mouth ity of tablet 00:00: daily. [place] [facility] spironolact 2020-0 Yes 25mg Take 25 mg Univers one 25 mg 6-08 by mouth ity of tablet 00:00: daily. [place] [facility] spironolact 2020-0 Yes 25mg Take 25 mg Univers one 25 mg 6-08 by mouth ity of tablet 00:00: daily. [place] [facility] spironolact 2020-0 Yes 25mg Take 25 mg Univers one 25 mg 6-08 by mouth ity of tablet 00:00: daily. [place] [facility] spironolact 2020-0 Yes 25mg Take 25 mg Univers one 25 mg 6-08 by mouth ity of tablet 00:00: daily. [place] [facility] spironolact 2020-0 Yes 25mg Take 25 mg Univers one 25 mg 6-08 by mouth ity of tablet 00:00: daily. [place] [facility] spironolact 2020-0 Yes 25mg Take 25 mg Univers one 25 mg 6-08 by mouth ity of tablet 00:00: daily. [place] [facility] spironolact 2020-0 Yes 25mg Take 25 mg Univers one 25 mg 6-08 by mouth ity of tablet 00:00: daily. [place] [facility] spironolact 202-0 Yes 25mg Take 25 mg Univers one 25 mg 6-08 by mouth ity of tablet 00:00: daily. [address] spironolact 2020-0 Yes 25mg Take 25 mg Univers one 25 mg 6-08 by mouth ity of tablet 00:00: daily. [place] [facility] spironolact 2020-0 Yes 25mg Take 25 mg Univers one 25 mg 6-08 by mouth ity of tablet 00:00: daily. [place] [facility] spironolact 2020-0 Yes 25mg Take 25 mg Univers one 25 mg 6-08 by mouth ity of tablet 00:00: daily. [place] [facility] spironolact 2020-0 Yes 25mg Take 25 mg Univers one 25 mg 6-08 by mouth ity of tablet 00:00: daily. [facility] spironolact 2020-0 Yes 25mg Take 25 mg Univers one 25 mg 6-08 by mouth ity of tablet 00:00: daily. [place] [facility] spironolact 2020-0 Yes 25mg Take 25 mg Univers one 25 mg 6-08 by mouth ity of tablet 00:00: daily. [place] [facility] spironolact 2020-0 Yes 25mg Take 25 mg Univers one 25 mg 6-08 by mouth ity of tablet 00:00: daily. [place] [facility] spironolact 2020-0 Yes 25mg Take 25 mg Univers one 25 mg 6-08 by mouth ity of tablet 00:00: daily. [place] [facility] spironolact 2020-0 Yes 25mg Take 25 mg [facility] one 25 mg 6-08 by mouth ity of tablet 00:00: daily. [place] [facility] spironolact 2020-0 Yes 25mg Take 25 mg [facility] one 25 mg 6-08 by mouth ity of tablet 00:00: daily. [place] [facility] neomycin-po 2020-0 Yes [id number] 3[drp] Place 3 [facility] lymyxin-hyd 4-14 Drops in ity of rocortisone 00:00: left ear 4 [place] 3.5-,000- 00 (four) Medica l 1 times Branch mg/mL-unit/ daily. mL-% otic susp neomycin-po 2020-0 Yes [id number] 3[drp] Place 3 [facility] lymyxin-hyd 4-14 Drops in ity of rocortisone 00:00: left ear 4 [place] 3.5-,000- 00 (four) Medica l 1 times Branch mg/mL-unit/ daily. mL-% otic susp neomycin-po 2021-0 Yes [id number] 3[drp] Place 3 [facility] lymyxin-hyd 4-14 Drops in ity of rocortisone 00:00: left ear 4 [place] 3.5-10,000- 00 (four) Medica l 1 times Branch mg/mL-unit/ daily. mL-% otic susp neomycin-po 2021-0 Yes [id number] 3[drp] Place 3 [facility] lymyxin-hyd 4-14 Drops in ity of rocortisone 00:00: left ear 4 [place] 3.5-10,000- 00 (four) Medica l 1 times Branch mg/mL-unit/ daily. mL-% otic susp neomycin-po 2021-0 Yes [id number] 3[drp] Place 3 [facility] lymyxin-hyd 4-14 Drops in ity of rocortisone 00:00: left ear 4 [place] 3.5-10000- (four) Medica l 1 times Branch mg/mL-unit/ daily. mL-% otic susp neomycin-po 2021-0 Yes [id number] 3[drp] Place 3 [facility] lymyxin-hyd 4-14 Drops in ity of rocortisone 00:00: left ear 4 [place] 3.5-000 00 (four) Medica l 1 times Branch mg/mL-unit/ daily. mL-% otic susp neomycin-po 2021-0 Yes [id number] 3[drp] Place 3 [facility] lymyxin-hyd 4-14 Drops in ity of rocortisone 00:00: left ear 4 [place] 3.5-000 (four) Medica l 1 times Branch mg/mL-unit/ daily. mL-% otic susp neomycin-po 2021-0 Yes [id number] 3[drp] Place 3 [facility] lymyxin-hyd 4-14 Drops in ity of rocortisone 00:00: left ear 4 [place] 3.5-,000- 00 (four) Medica l 1 times Branch mg/mL-unit/ daily. mL-% otic susp neomycin-po 2021-0 Yes [id number] 3[drp] Place 3 [facility] lymyxin-hyd 4-14 Drops in ity of rocortisone 00:00: left ear 4 [place] 3.5-000- 00 (four) Medica l 1 times Branch mg/mL-unit/ daily. mL-% otic susp neomycin-po 2021-0 Yes [id number] 3[drp] Place 3 [facility] lymyxin-hyd 4-14 Drops in ity of rocortisone 00:00: left ear 4 [place] 3.5-10,000- 00 (four) Medica l 1 times Branch mg/mL-unit/ daily. mL-% otic susp neomycin-po 2021-0 Yes [id number] 3[drp] Place 3 [facility] lymyxin-hyd 4-14 Drops in ity of rocortisone 00:00: left ear 4 [place] 3.5-10000- (four) Medica l 1 times Branch mg/mL-unit/ daily. mL-% otic susp neomycin-po 2021-0 Yes [id number] 3[drp] Place 3 [facility] lymyxin-hyd 4-14 Drops in ity of rocortisone 00:00: left ear 4 [place] 3.5-000 (four) Medica l 1 times Branch mg/mL-unit/ daily. mL-% otic susp neomycin-po 2021-0 Yes [id number] 3[drp] Place 3 [facility] lymyxin-hyd 4-14 Drops in ity of rocortisone 00:00: left ear 4 [place] 3.5-000 (four) Medica l 1 times Branch mg/mL-unit/ daily. mL-% otic susp neomycin-po 2021-0 Yes [id number] 3[drp] Place 3 [facility] lymyxin-hyd 4-14 Drops in ity of rocortisone 00:00: left ear 4 [place] 3.5-000 (four) Medica l 1 times Branch mg/mL-unit/ daily. mL-% otic susp neomycin-po 2021-0 Yes [id number] 3[drp] Place 3 [facility] lymyxin-hyd 4-14 Drops in ity of rocortisone 00:00: left ear 4 [place] 3.5-10,000 (four) Medica l 1 times Branch mg/mL-unit/ daily. mL-% otic susp neomycin-po 2021-0 Yes [id number] 3[drp] Place 3 [facility] lymyxin-hyd 4-14 Drops in ity of rocortisone 00:00: left ear 4 [place] 3.5-10,000- 00 (four) Medica l 1 times Branch mg/mL-unit/ daily. mL-% otic susp neomycin-po 2021-0 Yes [id number] 3[drp] Place 3 [facility] lymyxin-hyd 4-14 Drops in ity of rocortisone 00:00: left ear 4 [place] 3.5-,000- 00 (four) Medica l 1 times Branch mg/mL-unit/ daily. mL-% otic susp neomycin-po 2021-0 Yes [id number] 3[drp] Place 3 [facility] lymyxin-hyd 4-14 Drops in ity of rocortisone 00:00: left ear 4 [place] 3.5-000 (four) Medica l 1 times Branch mg/mL-unit/ daily. mL-% otic susp neomycin-po 2021-0 Yes [id number] 3[drp] Place 3 [facility] lymyxin-hyd 4-14 Drops in ity of rocortisone 00:00: left ear 4 [place] 3.5- (four) Medica l 1 times Branch mg/mL-unit/ daily. mL-% otic susp neomycin-po 2021-0 Yes [id number] 3[drp] Place 3 [facility] lymyxin-hyd 4-14 Drops in ity of rocortisone 00:00: left ear 4 [place] 3.5-,000 (four) Medica l 1 times Branch mg/mL-unit/ daily. mL-% otic susp neomycin-po 2021-0 Yes [id number] 3[drp] Place 3 [facility] lymyxin-hyd 4-14 Drops in ity of rocortisone 00:00: left ear 4 [place] 3.5-10,000 00 (four) Medica l 1 times Branch mg/mL-unit/ daily. mL-% otic susp neomycin-po 2021-0 Yes [id number] 3[drp] Place 3 [facility] lymyxin-hyd 4-14 Drops in ity of rocortisone 00:00: left ear 4 [place] 3.5-10,000- (four) Medica l 1 times Branch mg/mL-unit/ daily. mL-% otic susp neomycin-po 2021-0 Yes [id number] 3[drp] Place 3 [facility] lymyxin-hyd 4-14 Drops in ity of rocortisone 00:00: left ear 4 [place] 3.5-10,000- 00 (four) Medica l 1 times Branch mg/mL-unit/ daily. mL-% otic susp neomycin-po 2021-0 Yes [id number] 3[drp] Place 3 [facility] lymyxin-hyd 4-14 Drops in ity of rocortisone 00:00: left ear 4 [place] 3.5-10,000- 00 (four) Medica l 1 times Branch mg/mL-unit/ daily. mL-% otic susp neomycin-po 2021-0 Yes [id number] 3[drp] Place 3 [facility] lymyxin-hyd 4-14 Drops in ity of rocortisone 00:00: left ear 4 [place] 3.5-10,000- 00 (four) Medica l 1 times Branch mg/mL-unit/ daily. mL-% otic susp neomycin-po 2021-0 Yes [id number] 3[drp] Place 3 [facility] lymyxin-hyd 4-14 Drops in ity of rocortisone 00:00: left ear 4 [place] 3.5-10,000- 00 (four) Medica l 1 times Branch mg/mL-unit/ daily. mL-% otic susp neomycin-po 2021-0 Yes [id number] 3[drp] Place 3 [facility] lymyxin-hyd 4-14 Drops in ity of rocortisone 00:00: left ear 4 [place] 3.5-10,000- 00 (four) Medica l 1 times Branch mg/mL-unit/ daily. mL-% otic susp neomycin-po 2021-0 Yes [id number] 3[drp] Place 3 [facility] lymyxin-hyd 4-14 Drops in ity of rocortisone 00:00: left ear 4 [place] 3.5-10,000- 00 (four) Medica l 1 times Branch mg/mL-unit/ daily. mL-% otic susp neomycin-po 2021-0 Yes [id number] 3[drp] Place 3 [facility] lymyxin-hyd 4-14 Drops in ity of rocortisone 00:00: left ear 4 [place] 3.5-10,000- 00 (four) Medica l 1 times Branch mg/mL-unit/ daily. mL-% otic susp neomycin-po 2021-0 Yes [id number] 3[drp] Place 3 [facility] lymyxin-hyd 4-14 Drops in ity of rocortisone 00:00: left ear 4 [place] 3.5-10,000- 00 (four) Medica l 1 times Branch mg/mL-unit/ daily. mL-% otic susp neomycin-po 2021-0 Yes [id number] 3[drp] Place 3 [facility] lymyxin-hyd 4-14 Drops in ity of rocortisone 00:00: left ear 4 [place] 3.5-10,000- 00 (four) Medica l 1 times Branch mg/mL-unit/ daily. mL-% otic susp neomycin-po 2021-0 Yes [id number] 3[drp] Place 3 [facility] lymyxin-hyd 4-14 Drops in ity of rocortisone 00:00: left ear 4 [place] 3.5-10,000- 00 (four) Medica l 1 times Branch mg/mL-unit/ daily. mL-% otic susp neomycin-po 2021-0 Yes [id number] 3[drp] Place 3 [facility] lymyxin-hyd 4-14 Drops in ity of rocortisone 00:00: left ear 4 [place] 3.5-,000- 00 (four) Medica l 1 times Branch mg/mL-unit/ daily. mL-% otic susp neomycin-po 2021-0 Yes [id number] 3[drp] Place 3 [facility] lymyxin-hyd 4-14 Drops in ity of rocortisone 00:00: left ear 4 [place] 3.5-10,000- 00 (four) Medica l 1 times Branch mg/mL-unit/ daily. mL-% otic susp neomycin-po 2021-0 Yes [id number] 3[drp] Place 3 [facility] lymyxin-hyd 4-14 Drops in ity of rocortisone 00:00: left ear 4 [place] 3.5-10,000- 00 (four) Medica l 1 times Branch mg/mL-unit/ daily. mL-% otic susp neomycin-po 2021-0 Yes [id number] 3[drp] Place 3 [facility] lymyxin-hyd 4-14 Drops in ity of rocortisone 00:00: left ear 4 [place] 3.5-10,000- 00 (four) Medica l 1 times Branch mg/mL-unit/ daily. mL-% otic susp neomycin-po 2020-0 Yes [id number] 3[drp] Place 3 [facility] lymyxin-hyd 4-14 Drops in ity of rocortisone 00:00: left ear 4 [place] 3.5-,000- 00 (four) Medica l 1 times Branch mg/mL-unit/ daily. mL-% otic susp neomycin-po 2020-0 2021- No [id number] 3[drp] Place 3 [facility] lymyxin-hyd 4-14 12-21 Drops in ity of rocortisone 00:00: 00:00 left ear 4 [place] 3.5-,000- 00 :00 (four) Medica l 1 times Branch mg/mL-unit/ daily. mL-% otic susp neomycin-po 2020-0 2021- No [id number] 3[drp] Place 3 [facility] lymyxin-hyd 4-14 12-21 Drops in ity of rocortisone 00:00: 00:00 left ear 4 [place] 3.5-,000- 00 :00 (four) Medica l 1 [...] mcg DsDv 00 EVERY DAY [facility] TRELEGY 2019- Yes INHALE 1 Univer s ELLIPTA 2-24 PUFF BY ity of 100-62.5-25 00:00: MOUTH [place] mcg DsDv 00 EVERY DAY [facility] TRELEGY 2019- Yes INHALE 1 Univer s ELLIPTA 2-24 PUFF BY ity of 100-62.5-25 00:00: MOUTH [place] mcg DsDv 00 EVERY DAY [facility] [place] TRELEGY 2019- Yes INHALE 1 Univer s ELLIPTA 2-24 PUFF BY ity of 100-62.5-25 00:00: MOUTH [place] mcg DsDv 00 EVERY DAY [facility] TRELEGY 2019- Yes INHALE 1 Univer s ELLIPTA 2-24 PUFF BY ity of 100-62.5-25 00:00: MOUTH [place] mcg DsDv 00 EVERY DAY [facility] TRELEGY 2019- Yes INHALE 1 Univer s ELLIPTA 2-24 PUFF BY ity of 100-62.5-25 00:00: MOUTH [place] mcg DsDv 00 EVERY DAY [facility] TRELEGY 2019- Yes INHALE 1 Univer s ELLIPTA 2-24 PUFF BY ity of 100-62.5-25 00:00: MOUTH [place] mcg DsDv 00 EVERY DAY [facility] TRELEGY 2019- Yes INHALE 1 Univer s ELLIPTA 2-24 PUFF BY ity of 100-62.5-25 00:00: MOUTH [place] mcg DsDv 00 EVERY DAY [facility] TRELEGY 2019- Yes INHALE 1 Univer s ELLIPTA 2-24 PUFF BY ity of 100-62.5-25 00:00: MOUTH [place] mcg DsDv 00 EVERY DAY [facility]ica [facility] [place] TRELEGY 2019- Yes INHALE 1 Univer s ELLIPTA 2-24 PUFF BY ity of 100-62.5-25 00:00: MOUTH [place] mcg DsDv 00 EVERY DAY Medica [facility] [place] TRELEGY 2019- Yes INHALE 1 Univer s ELLIPTA 2-24 PUFF BY ity of 100-62.5-25 00:00: MOUTH [place] mcg DsDv 00 EVERY DAY [facility] [place] TRELEGY 2020- Yes INHALE 1 Univer s ELLIPTA 2-24 PUFF BY ity of 100-62.5-25 00:00: MOUTH [place] mcg DsDv 00 EVERY DAY [facility] [place] TRELEGY 2019- Yes INHALE 1 Univer s ELLIPTA 2-24 PUFF BY ity of 100-62.5-25 00:00: MOUTH [place] mcg DsDv 00 EVERY DAY [facility] [place] TRELEGY 2019- Yes INHALE 1 Univer s ELLIPTA 2-24 PUFF BY ity of 100-62.5-25 00:00: MOUTH [place] mcg DsDv 00 EVERY DAY [facility] [place] TRELEGY 2019- Yes INHALE 1 Univer s ELLIPTA 2-24 PUFF BY ity of 100-62.5-25 00:00: MOUTH [place] mcg DsDv 00 EVERY DAY [facility] [place] TRELEGY 2020- Yes INHALE 1 Univer s ELLIPTA 2-24 PUFF BY ity of 100-62.5-25 00:00: MOUTH [place] mcg DsDv 00 EVERY DAY [facility] [place] TRELEGY 2019- Yes INHALE 1 Univer s ELLIPTA 2-24 PUFF BY ity of 100-62.5-25 00:00: MOUTH [place] mcg DsDv 00 EVERY DAY [facility] [place] TRELEGY 2020- Yes INHALE 1 Univer s ELLIPTA 2-24 PUFF BY ity of 100-62.5-25 00:00: MOUTH [place] mcg DsDv 00 EVERY DAY [facility] [place] TRELEGY 2020- Yes INHALE 1 Univer s ELLIPTA 2-24 PUFF BY ity of 100-62.5-25 00:00: MOUTH [place] mcg DsDv 00 EVERY DAY [facility] [place] TRELEGY 2020- Yes INHALE 1 Univer s ELLIPTA 2-24 PUFF BY ity of 100-62.5-25 00:00: MOUTH [place] mcg DsDv 00 EVERY DAY [facility] [place] TRELEGY 2020- Yes INHALE 1 Univer s ELLIPTA 2-24 PUFF BY ity of 100-62.5-25 00:00: MOUTH [place] mcg DsDv 00 EVERY DAY [facility] [place] TRELEGY 2020-1 Yes INHALE 1 Univer s ELLIPTA 2-24 PUFF BY ity of 100-62.5-25 00:00: MOUTH [place] mcg DsDv 00 EVERY DAY [facility] [place] TRELEGY 2020-1 Yes INHALE 1 Univer s ELLIPTA 2-24 PUFF BY ity of 100-62.5-25 00:00: MOUTH [place] mcg DsDv 00 EVERY DAY [facility] [place] TRELEGY 2020- Yes INHALE 1 Univer s ELLIPTA 2-24 PUFF BY ity of 100-62.5-25 00:00: MOUTH [place] mcg DsDv 00 EVERY DAY [facility] [place] TRELEGY 2020- Yes INHALE 1 Univer s ELLIPTA 2-24 PUFF BY ity of 100-62.5-25 00:00: MOUTH [place] mcg DsDv 00 EVERY DAY [facility] Univer s ELLIPTA 2-24 PUFF BY ity of 100-62.5-25 00:00: MOUTH [place] mcg DsDv 00 EVERY DAY [facility] [place] TRELEGY 2020- Yes INHALE 1 Univer s ELLIPTA 2-24 PUFF BY ity of 100-62.5-25 00:00: MOUTH [place] mcg DsDv 00 EVERY DAY [facility] [place] TRELEGY 2020- Yes INHALE 1 Univer s ELLIPTA 2-24 PUFF BY ity of 100-62.5-25 00:00: MOUTH [place] mcg DsDv 00 EVERY DAY [facility] [place] TRELEGY 2020- Yes INHALE 1 Univer s ELLIPTA 2-24 PUFF BY ity of 100-62.5-25 00:00: MOUTH [place] mcg DsDv 00 EVERY DAY [facility] [place] TRELEGY 2020-1 Yes INHALE 1 Univer s ELLIPTA 2-24 PUFF BY ity of 100-62.5-25 00:00: MOUTH [place] mcg DsDv 00 EVERY DAY [facility] [place] TRELEGY 2020-1 Yes INHALE 1 Univer s ELLIPTA 2-24 PUFF BY ity of 100-62.5-25 00:00: MOUTH [place] mcg DsDv 00 EVERY DAY [facility] [place] TRELEGY 2020-1 Yes INHALE 1 Univer s ELLIPTA 2-24 PUFF BY ity of 100-62.5-25 00:00: MOUTH [place] mcg DsDv 00 EVERY DAY [facility] [place] TRELEGY 2020- Yes INHALE 1 Univer s ELLIPTA 2-24 PUFF BY ity of 100-62.5-25 00:00: MOUTH [place] mcg DsDv 00 EVERY DAY [facility] [place] TRELEGY 2020- Yes INHALE 1 Univer s ELLIPTA 2-24 PUFF BY ity of 100-62.5-25 00:00: MOUTH [place] mcg DsDv 00 EVERY DAY [facility] [place] TRELEGY 2020- Yes INHALE 1 Univer s ELLIPTA 2-24 PUFF BY ity of 100-62.5-25 00:00: MOUTH [place] mcg DsDv 00 EVERY DAY [facility] [place] TRELEGY 2020- Yes INHALE 1 Univer s ELLIPTA 2-24 PUFF BY ity of 100-62.5-25 00:00: MOUTH [place] mcg DsDv 00 EVERY DAY [facility] [place] TRELEGY 2019- Yes INHALE 1 Univer s ELLIPTA 2-24 PUFF BY ity of 100-62.5-25 00:00: MOUTH [place] mcg DsDv 00 EVERY DAY [facility] [place] TRELEGY 2020- Yes INHALE 1 Univer s ELLIPTA 2-24 PUFF BY ity of 100-62.5-25 00:00: MOUTH [place] mcg DsDv 00 EVERY DAY [facility] [place] TRELEGY 2020- Yes INHALE 1 Univer s ELLIPTA 2-24 PUFF BY ity of 100-62.5-25 00:00: MOUTH [place] mcg DsDv 00 EVERY DAY [facility] TRELEGY 2020- Yes INHALE 1 Univer s ELLIPTA 2-24 PUFF BY ity of 100-62.5-25 00:00: MOUTH [place] mcg DsDv 00 EVERY DAY [facility] [place] TRELEGY 2020- Yes INHALE 1 Univer s ELLIPTA 2-24 PUFF BY ity of 100-62.5-25 00:00: MOUTH [place] mcg DsDv 00 EVERY DAY [facility] [place] TRELEGY 2020- Yes INHALE 1 Univer s ELLIPTA 2-24 PUFF BY ity of 100-62.5-25 00:00: MOUTH [place] mcg DsDv 00 EVERY DAY [facility] ipratropium 2020- Yes Univer s 0.02 % [...] by mouth ity of 00:00: at bedtime [place] 00 as needed. Medical Branch zolpidem 10 2019-11 Yes 10mg Take 10 mg [facility] mg tablet 2-14 by mouth ity of 00:00: at bedtime [place] 00 as needed. Medical Branch zolpidem 10 2019-11 Yes 10mg Take 10 mg [facility] mg tablet 2-14 by mouth ity of 00:00: at bedtime [place] 00 as needed. Medical Branch zolpidem 10 2019-11 Yes 10mg Take 10 mg [facility] mg tablet 2-14 by mouth ity of 00:00: at bedtime [place] 00 as needed. Medical Branch zolpidem 10 [...] vers tablet 1-12 D ity of 00:00: [place] [facility] MOTEGRITY 2020- Yes TK 1 T PO Uni vers tablet 1-12 D ity of 00:00: [place] [facility] MOTEGRITY 2020- Yes TK 1 T PO Uni vers tablet 1-12 D ity of 00:00: [place] [facility] MOTEGRITY 2020- Yes TK 1 T PO Uni vers tablet 1-12 D ity of 00:00: [place] [facility] MOTEGRITY 2020- Yes TK 1 T PO Uni vers tablet 1-12 D ity of 00:00: [place] [facility] MOTEGRITY 2020- Yes TK 1 T PO Uni vers tablet 1-12 D ity of 00:00: [place] [facility] MOTEGRITY 2020- Yes TK 1 T PO Uni vers tablet 1-12 D ity of 00:00: [place] [facility] MOTEGRITY 2020- Yes TK 1 T PO Uni vers tablet 1-12 D ity of 00:00: [place] [facility] MOTEGRITY 2020- Yes TK 1 T PO Uni vers tablet 1-12 D ity of 00:00: [place] [facility] MOTEGRITY 2020- Yes TK 1 T PO Uni vers tablet 1-12 D ity of 00:00: [place] [facility] MOTEGRITY 2020- Yes TK 1 T PO Uni vers tablet 1-12 D ity of 00:00: [place] [facility] MOTEGRITY 2020- Yes TK 1 T PO Uni vers tablet 1-12 D ity of 00:00: [place] 00 [facility] MOTEGRITY 2020- Yes TK 1 T PO Uni vers tablet 1-12 D ity of 00:00: [place] [facility] MOTEGRITY 2020- Yes TK 1 T PO Uni vers tablet 1-12 D ity of 00:00: [place] [facility] MOTEGRITY 2020- Yes TK 1 T PO Uni vers tablet 1-12 D ity of 00:00: [place] [facility] MOTEGRITY 2020- Yes TK 1 T PO Uni vers tablet 1-12 D ity of 00:00: [place] [facility] MOTEGRITY 2020- Yes TK 1 T PO Uni vers tablet 1-12 D ity of 00:00: [address] MOTEGRITY 2020- Yes TK 1 T PO Uni vers tablet 1-12 D ity of 00:00: [place] [facility] MOTRITY 2020- Yes TK 1 T PO Uni vers tablet 1-12 D ity of 00:00: [address] MOTRITY 2020- Yes TK 1 T PO Uni vers tablet 1-12 D ity of 00:00: [place] [facility] MOTEGRITY 2020- Yes TK 1 T PO Uni vers tablet 1-12 D ity of 00:00: [place] [facility] MOTEGRITY 2020- Yes TK 1 T PO Uni vers tablet 1-12 D ity of 00:00: [place] [facility] MOTEGRITY 2020- Yes TK 1 T PO Uni vers tablet 1-12 D ity of 00:00: [place] [facility] MOTEGRITY 2020- Yes TK 1 T PO Uni vers tablet 1-12 D ity of 00:00: [place] [facility] MOTEGRITY 2020- Yes TK 1 T PO Uni vers tablet 1-12 D ity of 00:00: [place] 00 [facility] MOTEGRITY 2020- Yes TK 1 T PO Uni vers tablet 1-12 D ity of 00:00: [place] 00 [facility] MOTRITY 2020- Yes TK 1 T PO Uni vers tablet 1-12 D ity of 00:00: [place] 00 [facility] MOTEGRITY 2020- Yes TK 1 T PO Uni vers tablet 1-12 D ity of 00:00: [address] MOTEGRITY 2020- Yes TK 1 T PO Uni vers tablet 1-12 D ity of 00:00: [place] 00 [facility] Branch MOTEGRITY 2020- Yes TK 1 T PO Uni vers tablet 1-12 D ity of 00:00: [place] [facility] Branch MOTEGRITY 2020- Yes TK 1 T PO Uni vers tablet 1-12 D ity of 00:00: [place] [facility] MOTEGRITY 2020- Yes TK 1 T PO Uni vers tablet 1-12 D ity of 00:00: [place] [facility] Branch MOTEGRITY 2020- Yes TK 1 T PO Uni vers tablet 1-12 D ity of 00:00: [place] [facility] MOTEGRITY 2020- Yes TK 1 T PO Uni vers tablet 1-12 D ity of 00:00: [place] [facility] Branch MOTEGRITY 2020- Yes TK 1 T PO Uni vers tablet 1-12 D ity of 00:00: [place] [facility] MOTEGRITY 2020- Yes TK 1 T PO Uni vers tablet 1-12 D ity of 00:00: [place] [facility] Branch MOTEGRITY 2020- Yes TK 1 T PO Uni vers tablet 1-12 D ity of 00:00: [place] [facility] Branch MOTEGRITY 2020- Yes TK 1 T PO Uni vers tablet 1-12 D ity of 00:00: [place] [facility] Branch MOTEGRITY 2020- Yes TK 1 T PO Uni vers tablet 1-12 D ity of 00:00: [place] 00 [facility] Branch MOTEGRITY 2020- Yes TK 1 T PO Uni vers tablet 1-12 D ity of 00:00: [place] [facility] Branch MOTEGRITY 2020- Yes TK 1 T PO Uni vers tablet 1-12 D ity of 00:00: [place] 00 [facility] Branch MOTEGRITY 2020- Yes TK 1 T PO Uni vers tablet 1-12 D ity of 00:00: [place] 00 [facility] MOTEGRITY 2020- Yes TK 1 T PO Uni vers tablet 1-12 D ity of 00:00: [place] 00 [facility] MOTEGRITY 2020- Yes TK 1 T PO Uni vers tablet 1-12 D ity of 00:00: [place] 00 [facility] MOTEGRITY 2020- Yes TK 1 T PO Uni vers tablet 1-12 D ity of 00:00: [place] 00 [facility] MOTEGRITY 2020- Yes TK [...] vers tablet 1-12 D ity of 00:00: [place] [facility] MOTEGRITY 2020- Yes TK 1 T PO Uni vers tablet 1-12 D ity of 00:00: [place] [facility] MOTEGRITY 2020- Yes TK 1 T PO Uni vers tablet 1-12 D ity of 00:00: Medical Branch MOTEGRITY 2020- Yes TK 1 T PO Uni vers tablet 1-12 D ity of 00:00: [place] [facility] MOTEGRITY 2020- Yes TK 1 T PO Uni vers tablet 1-12 D ity of 00:00: [place] [facility] MOTEGRITY 2020- Yes TK 1 T PO Uni vers tablet 1-12 D ity of 00:00: [place] [facility] MOTEGRITY 2020- Yes TK 1 T PO Uni vers tablet 1-12 D ity of 00:00: [place] [facility] MOTEGRITY 2020- Yes TK 1 [...] mg tablet 1-04 ity of 00:00: 00 [facility] ondansetron 2020- Yes as needed. [...] of 00:: Medical Branch diclofenac 2020- Yes [id number] 75mg Take 1 [facility] 75 mg EC 0-08 tablet by ity of tablet 00:00: mouth (two) Medical times Branch daily with meals. diclofenac 2020- Yes [id number] 75mg Take 1 [facility] 75 mg EC 0-08 tablet by ity of tablet 00:00: mouth (two) Medical times Branch daily with meals. diclofenac 2020- Yes [id number] 75mg Take 1 [facility] 75 mg EC 0-08 tablet by ity of tablet 00:00: mouth (two) Medical times Branch daily with meals. diclofenac 2020- Yes [id number] 75mg Take 1 [facility] 75 mg EC 0-08 tablet by ity of tablet 00:00: mouth (two) Medical times Branch daily with meals. diclofenac 2020- Yes [id number] 75mg Take 1 [facility] 75 mg EC 0-08 tablet by ity of tablet 00:00: mouth (two) Medical times Branch daily with meals. diclofenac 2020- Yes [id number] 75mg Take 1 [facility] 75 mg EC 0-08 tablet by ity of tablet 00:00: mouth (two) Medical times Branch daily with meals. diclofenac 2019- Yes [id number] 75mg Take 1 [facility] 75 mg EC 0-08 tablet by ity of tablet 00:00: mouth (two) Medical times Branch daily with meals. diclofenac 2020- Yes [id number] 75mg Take 1 [facility] 75 mg EC 0-08 tablet by ity of tablet 00:00: mouth (two) Medical times Branch daily with meals. diclofenac 2020-1 Yes [id number] 75mg Take 1 [facility] 75 mg EC 0-08 tablet by ity of tablet 00:00: mouth (two) Medical times Branch daily with meals. diclofenac 2020- Yes [id number] 75mg Take 1 [facility] 75 mg EC 0-08 tablet by ity of tablet 00:00: mouth (two) Medical times Branch daily with meals. diclofenac 2020-1 Yes [id number] 75mg Take 1 [facility] 75 mg EC 0-08 tablet by ity of tablet 00:00: mouth (two) Medical times Branch daily with meals. diclofenac 2020-1 Yes [id number] 75mg Take 1 [facility] 75 mg EC 0-08 tablet by ity of tablet 00:00: mouth (two) Medical times Branch daily with meals. diclofenac 2020-1 Yes [id number] 75mg Take 1 [facility] 75 mg EC 0-08 tablet by ity of tablet 00:00: mouth (two) Medical times Branch daily with meals. diclofenac 2020-1 Yes [id number] 75mg Take 1 [facility] 75 mg EC 0-08 tablet by ity of tablet 00:00: mouth (two) Medical times Branch daily with meals. diclofenac 2020-1 Yes [id number] 75mg Take 1 [facility] 75 mg EC 0-08 tablet by ity of tablet 00:00: mouth (two) Medical times Branch daily with meals. diclofenac 2019-1 Yes [id number] 75mg Take 1 [facility] 75 mg EC 0-08 tablet by ity of tablet 00:00: mouth (two) Medical times Branch daily with meals. diclofenac 2020-1 Yes [id number] 75mg Take 1 [facility] 75 mg EC 0-08 tablet by ity of tablet 00:00: mouth (two) Medical times Branch daily with meals. diclofenac 2020-1 Yes [id number] 75mg Take 1 [facility] 75 mg EC 0-08 tablet by ity of tablet 00:00: mouth (two) Medical times Branch daily with meals. diclofenac 2020-1 Yes [id number] 75mg Take 1 [facility] 75 mg EC 0-08 tablet by ity of tablet 00:00: mouth (two) Medical times Branch daily with meals. diclofenac 2020-1 Yes [id number] 75mg Take 1 [facility] 75 mg EC 0-08 tablet by ity of tablet 00:00: mouth (two) Medical times Branch daily with meals. diclofenac 2020-1 Yes [id number] 75mg Take 1 [facility] 75 mg EC 0-08 tablet by ity of tablet 00:00: mouth (two) Medical times Branch daily with meals. diclofenac 2020-1 Yes [id number] 75mg Take 1 [facility] 75 mg EC 0-08 tablet by ity of tablet 00:00: mouth 2 [place] 00 (two) Medical times Branch daily with meals. diclofenac 2019-11- No [id number] 75mg Take 1 [facility] 75 mg EC 0-08 10-25 tablet by ity o f tablet 00:00: 00:00 mouth 2 [place] 00 :00 (two) Medical times Branch daily with meals. diclofenac 2019-11- No [id number] 75mg Take 1 [facility] 75 mg EC 0-08 10-25 tablet by ity o f tablet 00:00: 00:00 mouth 2 [place] 00 :00 (two) Medical times Branch daily with meals. CLONIDINE 2020-0 Yes [id number] TAKE 1 Un ally 0.2 mg 8-06 TABLET BY ity of tablet 00:00: MOUTH THREE Medical TIMES Branch DAILY CLONIDINE 2020-0 Yes [id number] TAKE 1 Un ally 0.2 mg 8-06 TABLET BY ity of tablet 00:00: 00 THREE Medical TIMES Branch DAILY CLONIDINE 2020-0 Yes [id number] TAKE 1 Un ally 0.2 mg 8-06 TABLET BY ity of tablet 00:00: MOUTH THREE Medical TIMES Branch DAILY CLONIDINE 2020-0 Yes [id number] TAKE 1 Un ally 0.2 mg 8-06 TABLET BY ity of tablet 00:00: MOUTH 00 THREE Medical TIMES Branch DAILY CLONIDINE 2020-0 Yes [id number] TAKE 1 Un ally 0.2 mg 8-06 TABLET BY ity of tablet 00:00: MOUTH 00 THREE Medical TIMES Branch DAILY CLONIDINE 2020-0 Yes [id number] TAKE 1 [facility] ally 0.2 mg 8-06 TABLET BY ity of tablet 00:00: MOUTH THREE Medical TIMES Branch DAILY CLONIDINE 2020-0 Yes [id number] TAKE 1 [facility] 0.2 mg 8-06 TABLET BY ity of tablet 00:00: MOUTH 00 THREE Medical TIMES Branch DAILY CLONIDINE 2020-0 Yes [id number] TAKE 1 [facility] 0.2 mg 8-06 TABLET BY ity of tablet 00:00: MOUTH 00 THREE Medical TIMES Branch DAILY CLONIDINE 2020-0 Yes [id number] TAKE 1 [facility] 0.2 mg 8-06 TABLET BY ity of tablet 00:00: MOUTH THREE Medical TIMES Branch DAILY CLONIDINE 2020-0 Yes [id number] TAKE 1 Un ally 0.2 mg 8-06 TABLET BY ity of tablet 00:00: MOUTH [place] 00 THREE Medical TIMES Branch DAILY CLONIDINE 2020-0 Yes [id number] TAKE 1 Un ally 0.2 mg 8-06 TABLET BY ity of tablet 00:00: MOUTH THREE Medical TIMES Branch DAILY CLONIDINE 2020-0 Yes [id number] TAKE 1 [facility] 0.2 mg 8-06 TABLET BY ity of tablet 00:00: THREE Medical TIMES Branch DAILY CLONIDINE 2020-0 Yes [id number] TAKE 1 [facility] 0.2 mg 8-06 TABLET BY ity of tablet 00:00: MOUTH THREE Medical TIMES Branch DAILY CLONIDINE 2020-0 Yes [id number] TAKE 1 Un ally 0.2 mg 8-06 TABLET BY ity of tablet 00:00: THREE Medical TIMES [facility] DAILY CLONIDINE 2020-0 Yes [id number] TAKE 1 Un ally 0.2 mg 8-06 TABLET BY [facility] tablet 00:00: THREE Medical TIMES [facility] DAILY CLONIDINE 2020-0 Yes [id number] TAKE 1 Un ally 0.2 mg 8-06 TABLET BY [facility] tablet 00:00: THREE Medical TIMES [facility] DAILY CLONIDINE 2020-0 Yes [id number] TAKE 1 Un ally 0.2 mg 8-06 TABLET BY [facility] tablet 00:00: THREE Medical TIMES [facility] DAILY CLONIDINE 2020-0 Yes [id number] TAKE 1 Un ally 0.2 mg 8-06 TABLET BY [facility] tablet 00:00: THREE Medical TIMES [facility] DAILY CLONIDINE 2020-0 Yes [id number] TAKE 1 Un ally 0.2 mg 8-06 TABLET BY [facility] tablet 00:00: THREE Medical TIMES [facility] DAILY CLONIDINE 2020-0 Yes [id number] TAKE 1 Un ally 0.2 mg 8-06 TABLET BY [facility] tablet 00:00: THREE Medical TIMES [facility] DAILY CLONIDINE 2020-0 Yes [id number] TAKE 1 Un ally 0.2 mg 8-06 TABLET BY [facility] tablet 00:00: THREE Medical TIMES [facility] DAILY CLONIDINE 2020-0 Yes [id number] TAKE 1 Un ally 0.2 mg 8-06 TABLET BY [facility] tablet 00:00: THREE Medical TIMES [facility] DAILY CLONIDINE 2020-0 Yes [id number] TAKE 1 Un ally 0.2 mg 8-06 TABLET BY ity of tablet 00:00: THREE Medical TIMES Branch DAILY CLONIDINE 2020-0 Yes [id number] TAKE 1 Un ally 0.2 mg 8-06 TABLET BY ity of tablet 00:00: MOUTH [place] 00 THREE Medical TIMES Branch DAILY CLONIDINE 2020-0 Yes [id number] TAKE 1 Un ally 0.2 mg 8-06 TABLET BY ity of tablet 00:00: MOUTH 00 THREE Medical TIMES Branch DAILY CLONIDINE 2020-0 Yes [id number] TAKE 1 [facility] ally 0.2 mg 8-06 TABLET BY ity of tablet 00:00: MOUTH 00 THREE Medical TIMES Branch DAILY CLONIDINE 2020-0 Yes [id number] TAKE 1 Un ally 0.2 mg 8-06 TABLET BY ity of tablet 00:00: MOUTH 00 THREE Medical TIMES Branch DAILY CLONIDINE 2020-0 Yes [id number] TAKE 1 Un ally 0.2 mg 8-06 TABLET BY ity of tablet 00:00: MOUTH 00 THREE Medical TIMES Branch DAILY CLONIDINE 2020-0 Yes [id number] TAKE 1 [facility] 0.2 mg 8-06 TABLET BY ity of tablet 00:00: MOUTH 00 THREE Medical TIMES Branch DAILY CLONIDINE 2020-0 Yes [id number] TAKE 1 [facility] ally 0.2 mg 8-06 TABLET BY ity of tablet 00:00: MOUTH 00 THREE Medical TIMES Branch DAILY CLONIDINE 2020-0 Yes [id number] TAKE 1 [facility] 0.2 mg 8-06 TABLET BY ity of tablet 00:00: MOUTH 00 THREE Medical TIMES Branch DAILY CLONIDINE 2020-0 Yes [id number] TAKE 1 Un ally 0.2 mg 8-06 TABLET BY ity of tablet 00:00: MOUTH 00 THREE Medical TIMES Branch DAILY CLONIDINE 2020-0 Yes [id number] TAKE 1 Un ally 0.2 mg 8-06 TABLET BY ity of tablet 00:00: MOUTH 00 THREE Medical TIMES Branch DAILY CLONIDINE 2020-0 2021- No [id number] TAKE 1 U nivers 0.2 mg 8-06 11-21 TABLET BY ity of tablet 00:00: 00:00 MOUTH [place] 00 :00 THREE Medical TIMES Branch DAILY CLONIDINE 2020-0 2021- No [id number] TAKE 1 U nivers 0.2 mg 8-06 [...] TK 1 T PO U nivers azole-trime 7- BID ity of thoprim 00:00: [place] 800-160 [...] TK 1 T PO U nivers azole-trime 7- BID ity of thoprim 00:00: [place] 800-160 [...] mcg capsule - BID ity of 00:00: [place] 00 Medical Branch AMITIZA 24 2020-0 Yes TK 1 C PO Un ally mcg capsule - BID ity of 00:00: [place] 00 [facility] Branch AMITIZA 24 2020-0 Yes TK 1 C PO Un ally mcg capsule - BID ity of 00:00: [place] 00 [facility] Branch AMITIZA 24 2020-0 Yes TK 1 C PO Un ally mcg capsule - BID ity of 00:00: [place] 00 [facility] Branch AMITIZA 24 2020-0 Yes TK 1 C PO Un ally mcg capsule - BID ity of 00:00: [place] 00 [facility] AMITIZA 24 2020-0 Yes TK 1 C PO Un ally mcg capsule - BID ity of 00:00: [place] 00 [facility] AMITIZA 24 2020-0 Yes TK 1 C PO Un ally mcg capsule - BID ity of 00:00: [place] 00 [facility] AMITIZA 24 2020-0 Yes TK 1 C PO Un ally mcg capsule 7- BID ity of 00:00: [place] 00 [facility] Branch AMITIZA 24 2020-0 Yes TK 1 C PO Un ally mcg capsule 7- BID ity of 00:00: [place] [facility] AMITIZA 24 2020-0 Yes TK 1 C PO Un ally mcg capsule - BID ity of 00:00: [place] [facility] AMITIZA 24 2020-0 Yes TK 1 C PO Un ally mcg capsule 7- BID ity of 00:00: [place] [facility] AMITIZA 24 2020-0 Yes TK 1 C PO Un ally mcg capsule - BID ity of 00:00: [place] [facility] AMITIZA 24 2020-0 Yes TK 1 C PO Un ally mcg capsule - BID ity of 00:00: [place] [facility] AMITIZA 24 2019-0 Yes TK 1 C PO Un ally mcg capsule - BID ity of 00:00: [place] [facility] AMITIZA 24 2020-0 Yes TK 1 C PO Un ally mcg capsule - BID ity of 00:00: [place] [facility] AMITIZA 24 2019-0 Yes TK 1 C PO Un ally mcg capsule - BID ity of 00:00: [place] [facility] AMITIZA 24 2020-0 Yes TK 1 C PO Un ally mcg capsule - BID ity of 00:00: [place] [facility] AMITIZA 24 2019-0 Yes TK 1 C PO Un ally mcg capsule - BID ity of 00:00: [place] [facility] AMITIZA 24 2020-0 Yes TK 1 C PO Un ally mcg capsule - BID ity of 00:00: [place] [facility] AMITIZA 24 2020-0 Yes TK 1 C PO Un ally mcg capsule - BID ity of 00:00: [place] [facility] AMITIZA 24 2020-0 Yes TK 1 C PO Un ally mcg capsule 7-06 BID ity of 00:00: [place] [facility] AMITIZA 24 2020-0 Yes TK 1 C PO Un ally mcg capsule 7-06 BID ity of 00:00: [place] [facility] AMITIZA 24 2020-0 Yes TK 1 C PO Un ally mcg capsule 7-06 BID ity of 00:00: [place] [facility] AMITIZA 24 2020-0 Yes TK 1 C PO Un ally mcg capsule 7- BID ity of 00:00: [place] [facility] AMITIZA 24 2020-0 Yes TK 1 C PO Un ally mcg capsule 7- BID ity of 00:00: [place] [facility] AMITIZA 24 2019-0 Yes TK 1 C PO Un ally mcg capsule - BID ity of 00:00: [place] [facility] AMITIZA 24 2019-0 Yes TK 1 C PO Un ally mcg capsule - BID ity of 00:00: [place] [facility] AMITIZA 24 2019-0 Yes TK 1 C PO Un ally mcg capsule - BID ity of 00:00: [place] [facility] AMITIZA 24 2019-0 Yes TK 1 C PO Un ally mcg capsule 05-06 BID ity of 00:00: [place] [facility] AMITIZA 24 2019-0 Yes TK 1 C PO Un ally mcg capsule 05-06 BID ity of 00:00: [place] [facility] AMITIZA 24 2019-0 Yes TK 1 C PO Un ally mcg capsule 05-06 BID ity of 00:00: [place] [facility] AMITIZA 24 2019-0 Yes TK 1 C PO Un ally mcg capsule 05-06 BID ity of 00:00: [place] [facility] AMITIZA 24 2019-0 Yes TK 1 C PO Un ally mcg capsule 05-06 BID ity of 00:00: [place] [facility] AMITIZA 24 2019-0 Yes TK 1 C PO Un ally mcg capsule 05-06 BID ity of 00:00: [place] [facility] Branch AMITIZA 24 2019-0 Yes TK 1 C PO Un ally mcg capsule - BID ity of 00:00: [place] [facility] AMITIZA 24 2019-0 Yes TK 1 C PO Un ally mcg capsule - BID ity of 00:00: [place] [facility] AMITIZA 24 2020-0 Yes TK 1 C PO Un ally mcg capsule - BID ity of 00:00: [place] [facility] AMITIZA 24 2019-0 Yes TK 1 C PO Un ally mcg capsule - BID ity of 00:00: [place] [facility] AMITIZA 24 2020-0 Yes TK 1 C PO Un ally mcg capsule - BID ity of 00:00: [place] 00 [facility] Branch AMITIZA 24 2020-0 Yes TK 1 C PO Un ally mcg capsule 7- BID ity of 00:00: [place] [facility] AMITIZA 24 2019-0 Yes TK 1 C PO Un ally mcg capsule 7- BID ity of 00:00: [place] [facility] AMITIZA 24 2019-0 Yes TK 1 C PO Un ally mcg capsule - BID ity of 00:00: [place] [facility] AMITIZA 24 2019-0 Yes TK 1 C PO Un ally mcg capsule - BID ity of 00:00: [place] [facility] AMITIZA 24 2019-0 Yes TK 1 C PO Un ally mcg capsule - BID ity of 00:00: [place] [facility] AMITIZA 24 2019-0 Yes TK 1 C PO Un ally mcg capsule - BID ity of 00:00: [place] [facility] AMITIZA 24 2019-0 Yes TK 1 C PO Un ally mcg capsule - BID ity of 00:00: [place] [facility] AMITIZA 24 2019-0 Yes TK 1 C PO Un ally mcg capsule - BID ity of 00:00: [place] [facility] AMITIZA 24 2019-0 Yes TK 1 C PO Un ally mcg capsule - BID ity of 00:00: [place] [facility] AMITIZA 24 2019-0 Yes TK 1 C PO Un ally mcg capsule - BID ity of 00:00: [place] [facility] AMITIZA 24 2019-0 Yes TK 1 C PO Un ally mcg capsule - BID ity of 00:00: [place] [facility] AMITIZA 24 2019-0 Yes TK 1 C PO Un ally mcg capsule - BID ity of 00:00: [place] [facility] AMITIZA 24 2019-0 Yes TK 1 C PO Un ally mcg capsule - BID ity of 00:00: [place] [facility] AMITIZA 24 2019-0 Yes TK 1 C PO Un ally mcg capsule - BID ity of 00:00: [place] [facility] AMITIZA 24 2019-0 Yes TK 1 C PO Un ally mcg capsule - BID ity of 00:00: [place] [facility] AMITIZA 24 2020-0 Yes TK [...] [facility] mg tablet 5-14 ity of 00:00: [place] 00 Medical Branch XIFAXAN 550 2020-0 Yes as needed. Univers mg tablet 5-14 ity of 00:00: [place] 00 Medical Branch XIFAXAN 550 2020-0 Yes [...] mg 09:53: mouth [place] tablet 14 daily. [facility] Branch ALPRAZolam 2019-0 Yes 2mg Take 2 mg Un ally (XANAX) 8-28 by mouth ity of 0.25 mg 09:53: every 6 [place] tablet 14 (six) Medical hours as Branch needed. allopurinol 2019-0 Yes 100mg Take 100 U nivers (ZYLOPRIM) 8-28 mg by ity of 100 mg 09:53: mouth [place] tablet 14 daily. [facility] Branch ALPRAZolam 2019-0 Yes 2mg Take 2 mg Un ally (XANAX) 8-28 by mouth ity of 0.25 mg 09:53: every 6 [place] tablet 14 (six) Medical hours as Branch needed. allopurinol 2019-0 Yes 100mg Take 100 U nivers (ZYLOPRIM) 8-28 mg by ity of 100 mg 09:53: mouth [place] tablet 14 daily. [facility] ALPRAZolam 2019-0 Yes 2mg Take 2 mg Un ally (XANAX) 8-28 by mouth ity of 0.25 mg 09:53: every 6 [place] tablet 14 (six) Medical hours as Branch needed. allopurinol 2019-0 Yes 100mg Take 100 U nivers (ZYLOPRIM) 8-28 mg by ity of 100 mg 09:53: mouth [place] tablet 14 daily. [facility] ALPRAZolam 2019-0 Yes 2mg Take 2 mg Un ally (XANAX) 8-28 by mouth ity of 0.25 mg 09:53: every 6 [place] tablet 14 (six) Medical hours as Branch needed. allopurinol 2019-0 Yes 100mg Take 100 U nivers (ZYLOPRIM) 8-28 mg by ity of 100 mg 09:53: mouth [place] tablet 14 daily. [facility] Branch ALPRAZolam 2019-0 Yes [...] mg 09:53: mouth [place] tablet 14 daily. [facility] Branch ALPRAZolam 2019-0 Yes 2mg Take 2 mg Un ally (XANAX) 8-28 by mouth ity of 0.25 mg 09:53: every 6 [place] tablet 14 (six) Medical hours as Branch needed. allopurinol 2019-0 Yes 100mg Take 100 U nivers (ZYLOPRIM) 8-28 mg by ity of 100 mg 09:53: mouth [place] tablet 14 daily. [facility] ALPRAZolam 2019-0 Yes 2mg Take 2 mg Un ally (XANAX) 8-28 by mouth ity of 0.25 mg 09:53: every 6 [place] tablet 14 (six) Medical hours as Branch needed. allopurinol 2019-0 Yes 100mg Take 100 U nivers (ZYLOPRIM) 8-28 mg by ity of 100 mg 09:53: mouth [place] tablet 14 daily. [facility] Branch ALPRAZolam 2019-0 Yes 2mg Take 2 mg Un ally (XANAX) 8-28 by mouth ity of 0.25 mg 09:53: every 6 [place] tablet 14 (six) Medical hours as Branch needed. allopurinol 2019-0 Yes 100mg Take 100 U nivers (ZYLOPRIM) 8-28 mg by ity of 100 mg 09:53: mouth [place] tablet 14 daily. [facility] ALPRAZolam 2019-0 Yes 2mg Take 2 mg Un ally (XANAX) 8-28 by mouth ity of 0.25 mg 09:53: every 6 [place] tablet 14 (six) Medical hours as Branch needed. allopurinol 2019-0 Yes 100mg Take 100 U nivers (ZYLOPRIM) 8-28 mg by ity of 100 mg 09:53: mouth [place] tablet 14 daily. [facility] ALPRAZolam 2019-0 Yes 2mg Take 2 mg [...] hours as Branch needed. atorvastati 2019-0 Yes [id number] 40mg Take 1 Univers n 40 mg 5-28 tablet by ity of tablet 00:00: mouth [place] 00 every Medical evening. Branch atorvastati 2019-0 Yes [id number] 40mg Take 1 Univers n 40 mg 5-28 tablet by ity of tablet 00:00: mouth [place] 00 every Medical evening. Branch atorvastati 2019-0 Yes [id number] 40mg Take 1 Univers n 40 mg 5-28 tablet by ity of tablet 00:00: mouth [place] 00 every Medical evening. [place] atorvastati 2019-0 Yes [id number] 40mg Take 1 Univers n 40 mg 5-28 tablet by ity of tablet 00:00: mouth [place] 00 every Medical evening. Branch atorvastati 2018-0 Yes [id number] 40mg Take 1 Univers n 40 mg 5-28 tablet by ity of tablet 00:00: mouth [place] 00 every Medical evening. Branch atorvastati 0 Yes [id number] 40mg Take 1 Univers n 40 mg 5-28 tablet by ity of tablet 00:00: mouth [place] 00 every Medical evening. Branch atorvastati Yes [id number] 40mg Take 1 Univers n 40 mg 5-28 tablet by ity of tablet 00:00: mouth [place] 00 every Medical evening. Branch atorvastati 0 Yes [id number] 40mg Take 1 Univers n 40 mg 5-28 tablet by ity of tablet 00:00: mouth [place] 00 every Medical evening. [place] atorvastati 0 Yes [id number] 40mg Take 1 Univers n 40 mg 5-28 tablet by ity of tablet 00:00: mouth [place] 00 every Medical evening. [place] atorvastati 0 Yes [id number] 40mg Take 1 Univers n 40 mg 5-28 tablet by ity of tablet 00:00: mouth [place] 00 every Medical evening. Branch atorvastati 0 Yes [id number] 40mg Take 1 Univers n 40 mg 5-28 tablet by ity of tablet 00:00: mouth [place] 00 every Medical evening. Branch atorvastati 2018-0 Yes [id number] 40mg Take 1 Univers n 40 mg 5-28 tablet by ity of tablet 00:00: mouth [place] 00 every Medical evening. [place] atorvastati 2018-0 Yes [id number] 40mg Take 1 Univers n 40 mg 5-28 tablet by ity of tablet 00:00: mouth [place] 00 every Medical evening. Branch atorvastati 2018-0 Yes [id number] 40mg Take 1 Univers n 40 mg 5-28 tablet by ity of tablet 00:00: mouth [place] 00 every Medical evening. [place] atorvastati 2018-0 Yes [id number] 40mg Take 1 Univers n 40 mg 5-28 tablet by ity of tablet 00:00: mouth [place] 00 every Medical evening. [place] atorvastati Yes [id number] 40mg Take 1 Univers n 40 mg 5-28 tablet by ity of tablet 00:00: mouth [place] 00 every Medical evening. [place] atorvastati Yes [id number] 40mg Take 1 Univers n 40 mg 5-28 tablet by ity of tablet 00:00: mouth [place] 00 every Medical evening. [place] atorvastati Yes [id number] 40mg Take 1 Univers n 40 mg 5-28 tablet by ity of tablet 00:00: mouth [place] 00 every Medical evening. [place] atorvastati Yes [id number] 40mg Take 1 Univers n 40 mg 5-28 tablet by ity of tablet 00:00: mouth [place] 00 every Medical evening. [place] atorvastati Yes [id number] 40mg Take 1 Univers n 40 mg 5-28 tablet by ity of tablet 00:00: mouth [place] 00 every Medical evening. [place] atorvasta Yes [id number] 40mg Take 1 Univers n 40 mg 5-28 tablet by ity of tablet 00:00: mouth [place] 00 every Medical evening. [place] atorvasta Yes [id number] 40mg Take 1 Univers n 40 mg 5-28 tablet by ity of tablet 00:00: mouth [place] 00 every Medical evening. [place] atorvasta Yes [id number] 40mg Take 1 Univers n 40 mg 5-28 tablet by ity of tablet 00:00: mouth [place] 00 every Medical evening. [place] atorvastati Yes [id number] 40mg Take 1 Univers n 40 mg 5-28 tablet by ity of tablet 00:00: mouth [place] 00 every Medical evening. [place] atorvastati Yes [id number] 40mg Take 1 Univers n 40 mg 5-28 tablet by ity of tablet 00:00: mouth [place] 00 every Medical evening. [place] atorvastati Yes [id number] 40mg Take 1 Univers n 40 mg 5-28 tablet by ity of tablet 00:00: mouth [place] 00 every Medical evening. [place] atorvastati Yes [id number] 40mg Take 1 Univers n 40 mg 5-28 tablet by ity of tablet 00:00: mouth [place] 00 every Medical evening. [place] atorvastati Yes [id number] 40mg Take 1 Univers n 40 mg 5-28 tablet by ity of tablet 00:00: mouth [place] 00 every Medical evening. Branch atorvastati Yes [id number] 40mg Take 1 Univers n 40 mg 5-28 tablet by ity of tablet 00:00: mouth [place] 00 every Medical evening. Branch atorvastati Yes [id number] 40mg Take 1 Univers n 40 mg 5-28 tablet by ity of tablet 00:00: mouth [place] 00 every Medical evening. Branch atorvastati Yes [id number] 40mg Take 1 Univers n 40 mg 5-28 tablet by ity of tablet 00:00: mouth [place] 00 every Medical evening. Branch atorvastati Yes [id number] 40mg Take 1 Univers n 40 mg 5-28 tablet by ity of tablet 00:00: mouth [place] 00 every Medical evening. Branch atorvastati Yes [id number] 40mg Take 1 Univers n 40 mg 5-28 tablet by ity of tablet 00:00: mouth [place] 00 every Medical evening. Branch atorvastati 2021- No [id number] 40mg Take 1 Univers n 40 mg 5-28 11-21 tablet by ity of tablet 00:00: 00:00 mouth [place] 00 :00 every Medical evening. Branch atorvastati 2021- No [id number] 40mg Take 1 Univers n 40 mg [...] :00 daily. Medical Branch Cholecalcif 2017-11 Yes [id number] Take 1 Un ally alayna, 0-01 capsule by ity of Vitamin D3, 00:00: mouth [place] 50,000 unit 00 weekly. Medic al capsule Branch Cholecalcif 2017-11 Yes [id number] Take 1 Un ally alayna, 0-01 capsule by ity of Vitamin D3, 00:00: mouth [place] 50,000 unit 00 weekly. Medic al capsule Branch Cholecalcif 2017-11 Yes [id number] Take 1 Un ally alayna, 0-01 capsule by ity of Vitamin D3, 00:00: mouth [place] 50,000 unit 00 weekly. Medic al capsule Branch Cholecalcif 2017-11 Yes [id number] Take 1 Un ally alayna, 0-01 capsule by ity of Vitamin D3, 00:00: mouth [place] 50,000 unit 00 weekly. Medic al capsule Branch Cholecalcif 2017-11 Yes [id number] Take 1 Un ally alayna, 0-01 capsule by ity of Vitamin D3, 00:00: mouth [place] 50,000 unit 00 weekly. Medic al capsule Branch Cholecalcif 2017-11 Yes [id number] Take 1 Un ally alayna, 0-01 capsule by ity of Vitamin D3, 00:00: mouth [place] 50,000 unit 00 weekly. Medic al capsule Branch Cholecalcif 2017-11 Yes [id number] Take 1 Un ally alayna, 0-01 capsule by ity of Vitamin D3, 00:00: mouth [place] 50,000 unit 00 weekly. Medic al capsule Branch Cholecalcif 2017-11 Yes [id number] Take 1 Un ally alayna, 0-01 capsule by ity of Vitamin D3, 00:00: mouth [place] 50,000 unit 00 weekly. Medic al capsule Branch Cholecalcif 2017-11 Yes [id number] Take 1 Un ally alayna, 0-01 capsule by ity of Vitamin D3, 00:00: mouth [place] 50,000 unit 00 weekly. Medic al capsule Branch Cholecalcif 2017-11 Yes [id number] Take 1 Un ally alayna, 0-01 capsule by ity of Vitamin D3, 00:00: mouth [place] 50,000 unit 00 weekly. Medic al capsule Branch Cholecalcif 2017-11 Yes [id number] Take 1 Un ally alayna, 0-01 capsule by ity of Vitamin D3, 00:00: mouth [place] 50,000 unit 00 weekly. Medic al capsule Branch Cholecalcif 2017-11 Yes [id number] Take 1 Un ally alayna, 0-01 capsule by ity of Vitamin D3, 00:00: mouth [place] 50,000 unit 00 weekly. Medic al capsule Branch Cholecalcif 2017-11 Yes [id number] Take 1 Un ally alayna, 0-01 capsule by ity of Vitamin D3, 00:00: mouth [place] 50,000 unit 00 weekly. Medic al capsule Branch Cholecalcif 2017-11 Yes [id number] Take 1 Un ally alayna, 0-01 capsule by ity of Vitamin D3, 00:00: mouth [place] 50,000 unit 00 weekly. Medic al capsule Branch Cholecalcif 2017-11 Yes [id number] Take 1 Un ally alayna, 0-01 capsule by ity of Vitamin D3, 00:00: mouth [place] 50,000 unit 00 weekly. Medic al capsule Branch Cholecalcif 2017-11 Yes [id number] Take 1 Un ally alayna, 0-01 capsule by ity of Vitamin D3, 00:00: mouth [place] 50,000 unit 00 weekly. Medic al capsule Branch Cholecalcif 2017-11 Yes [id number] Take 1 Un ally alayna, 0-01 capsule by ity of Vitamin D3, 00:00: mouth [place] 50,000 unit 00 weekly. Medic al capsule Branch Cholecalcif 2017-11 Yes [id number] Take 1 Un ally alayna, 0-01 capsule by ity of Vitamin D3, 00:00: mouth [place] 50,000 unit 00 weekly. Medic al capsule Branch Cholecalcif 2017-11 Yes [id number] Take 1 Un ally alayna, 0-01 capsule by ity of Vitamin D3, 00:00: mouth [place] 50,000 unit 00 weekly. Medic al capsule Branch Cholecalcif 2017-11 Yes [id number] Take 1 Un ally alayna, 0-01 capsule by ity of Vitamin D3, 00:00: mouth [place] 50,000 unit 00 weekly. Medic al capsule Branch Cholecalcif 2017-11 Yes [id number] Take 1 Un ally alayna, 0-01 capsule by ity of Vitamin D3, 00:00: mouth [place] 50,000 unit 00 weekly. Medic al capsule Branch Cholecalcif 2017-11 Yes [id number] Take 1 Un ally alayna, 0-01 capsule by ity of Vitamin D3, 00:00: mouth [place] 50,000 unit 00 weekly. Medic al capsule Branch Cholecalcif 2017-11 Yes [id number] Take 1 Un ally alayna, 0-01 capsule by ity of Vitamin D3, 00:00: mouth [place] 50,000 unit 00 weekly. Medic al capsule Branch Cholecalcif 2017-11 Yes [id number] Take 1 Un ally alayna, 0-01 capsule by ity of Vitamin D3, 00:00: mouth [place] 50,000 unit 00 weekly. Medic al capsule Branch Cholecalcif 2017-11 Yes [id number] Take 1 Un ally alayna, 0-01 capsule by ity of Vitamin D3, 00:00: mouth [place] 50,000 unit 00 weekly. Medic al capsule Branch Cholecalcif 2017-11 Yes [id number] Take 1 Un ally alayna, 0-01 capsule by ity of Vitamin D3, 00:00: mouth [place] 50,000 unit 00 weekly. Medic al capsule Branch Cholecalcif 2017-11 Yes [id number] Take 1 Un ally alayna, 0-01 capsule by ity of Vitamin D3, 00:00: mouth [place] 50,000 unit 00 weekly. Medic al capsule Branch Cholecalcif 2017-11 Yes [id number] Take 1 Un ally alayna, 0-01 capsule by ity of Vitamin D3, 00:00: mouth [place] 50,000 unit 00 weekly. Medic al capsule Branch Cholecalcif 2017-11 Yes [id number] Take 1 Un ally alayna, 0-01 capsule by ity of Vitamin D3, 00:00: mouth [place] 50,000 unit 00 weekly. Medic al capsule Branch Cholecalcif 2017-11 Yes [id number] Take 1 Un ally alayna, 0-01 capsule by ity of Vitamin D3, 00:00: mouth [place] 50,000 unit 00 weekly. Medic al capsule Branch Cholecalcif 2017-11 Yes [id number] Take 1 Un ally alayna, 0-01 capsule by ity of Vitamin D3, 00:00: mouth [place] 50,000 unit 00 weekly. Medic al capsule Branch Cholecalcif 2017-11 Yes [id number] Take 1 Un ally alayna, 0-01 capsule by ity of Vitamin D3, 00:00: mouth [place] 50,000 unit 00 weekly. Medic al capsule Branch Cholecalcif 2017-11 Yes [id number] Take 1 Un ally alayna, 0-01 capsule by ity of Vitamin D3, 00:00: mouth [place] 50,000 unit 00 weekly. Medic al capsule Branch Cholecalcif 2017-11 Yes [id number] Take 1 Un ally alayna, 0-01 capsule by ity of Vitamin D3, 00:00: mouth [place] 50,000 unit 00 weekly. Medic al capsule Branch Cholecalcif 2017-11 Yes [id number] Take 1 Un ally alayna, 0-01 capsule by ity of Vitamin D3, 00:00: mouth [place] 50,000 unit 00 weekly. Medic al capsule Branch Cholecalcif 2017-11 Yes [id number] Take 1 Un ally alayna, 0-01 capsule by ity of Vitamin D3, 00:00: mouth [place] 50,000 unit 00 weekly. Medic al capsule Branch Cholecalcif 2017-11 Yes [id number] Take 1 Un ally alayna, 0-01 capsule by ity of Vitamin D3, 00:00: mouth [place] 50,000 unit 00 weekly. Medic al capsule Branch Cholecalcif 2017-11 Yes [id number] Take 1 Un ally alayna, 0-01 capsule by ity of Vitamin D3, 00:00: mouth [place] 50,000 unit 00 weekly. Medic al capsule Branch Cholecalcif 2017-11 Yes [id number] Take 1 Un ally alayna, 0-01 capsule by ity of Vitamin D3, 00:00: mouth [place] 50,000 unit 00 weekly. Medic al capsule Branch Cholecalcif 2017-11 Yes [id number] Take 1 Un ally alayna, 0-01 capsule by ity of Vitamin D3, 00:00: mouth [place] 50,000 unit 00 weekly. Medic al capsule Branch Cholecalcif 2017-11 Yes [id number] Take 1 Un ally alayna, 0-01 capsule by ity of Vitamin D3, 00:00: mouth [place] 50,000 unit 00 weekly. Medic al capsule Branch Cholecalcif 2017-11 Yes [id number] Take 1 Un ally alayna, 0-01 capsule by ity of Vitamin D3, 00:00: mouth [place] 50,000 unit 00 weekly. Medic al capsule Branch Cholecalcif 2017-11 Yes [id number] Take 1 Un ally alayna, 0-01 capsule by ity of Vitamin D3, 00:00: mouth [place] 50,000 unit 00 weekly. Medic al capsule Branch Cholecalcif 2017-11 Yes [id number] Take 1 Un ally alayna, 0-01 capsule by ity of Vitamin D3, 00:00: mouth [place] 50,000 unit 00 weekly. Medic al capsule Branch Cholecalcif 2017-11 Yes [id number] Take 1 Un ally alayna, 0-01 capsule by ity of Vitamin D3, 00:00: mouth [place] 50,000 unit 00 weekly. Medic al capsule Branch Cholecalcif 2017-11 Yes [id number] Take 1 Un ally alayna, 0-01 capsule by ity of Vitamin D3, 00:00: mouth [place] 50,000 unit 00 weekly. Medic al capsule Branch Cholecalcif 2017-11 Yes [id number] Take 1 Un ally alayna, 0-01 capsule by ity of Vitamin D3, 00:00: mouth [place] 50,000 unit 00 weekly. Medic al capsule Branch Cholecalcif 2017-11 Yes [id number] Take 1 Un ally alayna, 0-01 capsule by ity of Vitamin D3, 00:00: mouth [place] 50,000 unit 00 weekly. Medic al capsule Branch Cholecalcif 2017-11 Yes [id number] Take 1 Un ally alayna, 0-01 capsule by ity of Vitamin D3, 00:00: mouth [place] 50,000 unit 00 weekly. Medic al capsule Branch Cholecalcif 2017-11 Yes [id number] Take 1 Un ally alayna, 0-01 capsule by ity of Vitamin D3, 00:00: mouth [place] 50,000 unit 00 weekly. Medic al capsule Branch Cholecalcif 2017-11 Yes [id number] Take 1 Un ally alayna, 0-01 capsule by ity of Vitamin D3, 00:00: mouth [place] 50,000 unit 00 weekly. Medic al capsule Branch Cholecalcif 2017-11 Yes [id number] Take 1 Un ally alayna, 0-01 capsule by ity of Vitamin D3, 00:00: mouth [place] 50,000 unit 00 weekly. Medic al capsule Branch Cholecalcif 2017-11 Yes [id number] Take 1 Un ally alayna, 0-01 capsule by ity of Vitamin D3, 00:00: mouth [place] 50,000 unit 00 weekly. Medic al capsule Branch Cholecalcif 2017-11 Yes [id number] Take 1 Un ally alayna, 0-01 capsule by ity of Vitamin D3, 00:00: mouth [place] 50,000 unit 00 weekly. Medic al capsule Branch Cholecalcif 2017-11 Yes [id number] Take 1 Un ally alayna, 0-01 capsule by ity of Vitamin D3, 00:00: mouth [place] 50,000 unit 00 weekly. Medic al capsule Branch Cholecalcif 2017-11 Yes [id number] Take 1 Un ally alayna, 0-01 capsule by ity of Vitamin D3, 00:00: mouth [place] 50,000 unit 00 weekly. Medic al capsule Branch Cholecalcif 2017-11 Yes [id number] Take 1 Un ally alayna, 0-01 capsule by ity of Vitamin D3, 00:00: mouth [place] 50,000 unit 00 weekly. Medic al capsule Branch Cholecalcif 2017-11 Yes [id number] Take 1 Un ally alayna, 0-01 capsule by ity of Vitamin D3, 00:00: mouth [place] 50,000 unit 00 weekly. Medic al capsule Branch Lactated No 1,000 mL, [place] jenna Ringers IV 604 Rate: 40 l 1,000 mL 19:14: ml/hr, [place] 00 Infuse over: 25 hr, Route: IV, Dosing Weight 141.364 kg, Total Volume: 1,000, Start date: 04/04/18 14:14:00 CDT, Duration: 30 day, Stop date: 05/04/18 14:13:00 CDT, 2.56, m2 Lactated 2018-0 No 1,000 mL, [facility] IV 6-04 Rate: 40 l 1,000 mL 19:14: ml/hr, [place] 00 Infuse over: 25 hr, Route: IV, Dosing Weight 141.364 kg, Total Volume: 1,000, Start date: 04/04/18 14:14:00 CDT, Duration: 30 day, Stop date: 05/04/18 14:13:00 CDT, 2.56, m2 Lactated 2018-0 No 1,000 mL, [facility] IV 6-04 Rate: 40 l 1,000 mL 19:14: ml/hr, [place] 00 Infuse over: 25 hr, Route: IV, Dosing Weight 141.364 kg, Total Volume: 1,000, Start date: 04/04/18 14:14:00 CDT, Duration: 30 day, Stop date: 05/04/18 14:13:00 CDT, 2.56, m2 Lactated 2018-0 No 1,000 mL, [facility] IV 6-04 Rate: 40 l 1,000 mL 19:14: ml/hr, [place] 00 Infuse over: 25 hr, Route: IV, Dosing Weight 141.364 kg, Total Volume: 1,000, Start date: 04/04/18 14:14:00 CDT, Duration: 30 day, Stop date: 05/04/18 14:13:00 CDT, 2.56, m2 Lactated 2018-0 No 1,000 mL, [facility] IV 6-04 Rate: 40 l 1,000 mL 19:14: ml/hr, [place] 00 Infuse over: 25 hr, Route: IV, Dosing Weight 141.364 kg, Total Volume: 1,000, Start date: 04/04/18 14:14:00 CDT, Duration: 30 day, Stop date: 05/04/18 14:13:00 CDT, 2.56, m2 Lactated 2018-0 No 1,000 mL, [facility] IV 6-04 Rate: 40 l 1,000 mL 19:14: ml/hr, [place] 00 Infuse over: 25 hr, Route: IV, Dosing Weight 141.364 kg, Total Volume: 1,000, Start date: 04/04/18 14:14:00 CDT, Duration: 30 day, Stop date: 05/04/18 14:13:00 CDT, 2.56, m2 Lactated 2018-0 No 1,000 mL, [facility] IV 6-04 Rate: 40 l 1,000 mL 19:14: ml/hr, [place] 00 Infuse over: 25 hr, Route: IV, Dosing Weight 141.364 kg, Total Volume: 1,000, Start date: 04/04/18 14:14:00 CDT, Duration: 30 day, Stop date: 05/04/18 14:13:00 CDT, 2.56, m2 Lactated 2018-0 No 1,000 mL, [facility] IV 6-04 Rate: 40 l 1,000 mL 19:14: ml/hr, [place] 00 Infuse over: 25 hr, Route: IV, Dosing Weight 141.364 kg, Total Volume: 1,000, Start date: 04/04/18 14:14:00 CDT, Duration: 30 day, Stop date: 05/04/18 14:13:00 CDT, 2.56, m2 Lactated 2018-0 No 1,000 mL, [facility] IV 6-04 Rate: 40 l 1,000 mL 19:14: ml/hr, [place] 00 Infuse over: 25 hr, Route: IV, Dosing Weight 141.364 kg, Total Volume: 1,000, Start date: 04/04/18 14:14:00 CDT, Duration: 30 day, Stop date: 05/04/18 14:13:00 CDT, 2.56, m2 Lactated 2018-0 No 1,000 mL, [facility] IV 6-04 Rate: 40 l 1,000 mL 19:14: ml/hr, [place] 00 Infuse over: 25 hr, Route: IV, Dosing Weight 141.364 kg, Total Volume: 1,000, Start date: 04/04/18 14:14:00 CDT, Duration: 30 day, Stop date: 05/04/18 14:13:00 CDT, 2.56, m2 Lactated 2018-0 No 1,000 mL, [facility] IV 6-04 Rate: 40 l 1,000 mL 19:14: ml/hr, [place] 00 Infuse over: 25 hr, Route: IV, Dosing Weight 141.364 kg, Total Volume: 1,000, Start date: 04/04/18 14:14:00 CDT, Duration: 30 day, Stop date: 05/04/18 14:13:00 CDT, 2.56, m2 Lactated 2018-0 No 1,000 mL, [facility] IV 6-04 Rate: 40 l 1,000 mL 19:14: ml/hr, [place] 00 Infuse over: 25 hr, Route: IV, Dosing Weight 141.364 kg, Total Volume: 1,000, Start date: 04/04/18 14:14:00 CDT, Duration: 30 day, Stop date: 05/04/18 14:13:00 CDT, 2.56, m2 Lactated 2018-0 No 1,000 mL, [facility] IV 6-04 Rate: 40 l 1,000 mL 19:14: ml/hr, [place] 00 Infuse over: 25 hr, Route: IV, Dosing Weight 141.364 kg, Total Volume: 1,000, Start date: 04/04/18 14:14:00 CDT, Duration: 30 day, Stop date: 05/04/18 14:13:00 CDT, 2.56, m2 Lactated 2018-0 No 1,000 mL, [facility] IV 6-04 Rate: 40 l 1,000 mL 19:14: ml/hr, [place] 00 Infuse over: 25 hr, Route: IV, Dosing Weight 141.364 kg, Total Volume: 1,000, Start date: 04/04/18 14:14:00 CDT, Duration: 30 day, Stop date: 05/04/18 14:13:00 CDT, 2.56, m2 Lactated 2018-0 No 1,000 mL, [facility] IV 6-04 Rate: 40 l 1,000 mL 19:14: ml/hr, [place] 00 Infuse over: 25 hr, Route: IV, Dosing Weight 141.364 kg, Total Volume: 1,000, Start date: 04/04/18 14:14:00 CDT, Duration: 30 day, Stop date: 05/04/18 14:13:00 CDT, 2.56, m2 Lactated 2018-0 No 1,000 mL, [facility] IV 6-04 Rate: 40 l 1,000 mL 19:14: ml/hr, [place] 00 Infuse over: 25 hr, Route: IV, Dosing Weight 141.364 kg, Total Volume: 1,000, Start date: 04/04/18 14:14:00 CDT, Duration: 30 day, Stop date: 05/04/18 14:13:00 CDT, 2.56, m2 Lactated 2018-0 No 1,000 mL, [facility] IV 6-04 Rate: 40 l 1,000 mL 19:14: ml/hr, [place] 00 Infuse over: 25 hr, Route: IV, Dosing Weight 141.364 kg, Total Volume: 1,000, Start date: 04/04/18 14:14:00 CDT, Duration: 30 day, Stop date: 05/04/18 14:13:00 CDT, 2.56, m2 Lactated 2018-0 No 1,000 mL, [facility] IV 6-04 Rate: 40 l 1,000 mL 19:14: ml/hr, [place] 00 Infuse over: 25 hr, Route: IV, Dosing Weight 141.364 kg, Total Volume: 1,000, Start date: 04/04/18 14:14:00 CDT, Duration: 30 day, Stop date: 05/04/18 14:13:00 CDT, 2.56, m2 Lactated 2018-0 No 1,000 mL, [facility] IV 6-04 Rate: 40 l 1,000 mL 19:14: ml/hr, [place] 00 Infuse over: 25 hr, Route: IV, Dosing Weight 141.364 kg, Total Volume: 1,000, Start date: 04/04/18 14:14:00 CDT, Duration: 30 day, Stop date: 05/04/18 14:13:00 CDT, 2.56, m2 Lactated 2018-0 No 1,000 mL, [facility] IV 6-04 Rate: 40 l 1,000 mL 19:14: ml/hr, [place] 00 Infuse over: 25 hr, Route: IV, Dosing Weight 141.364 kg, Total Volume: 1,000, Start date: 04/04/18 14:14:00 CDT, Duration: 30 day, Stop date: 05/04/18 14:13:00 CDT, 2.56, m2 Lactated 2018-0 No 1,000 mL, [facility] IV 6-04 Rate: 40 l 1,000 mL 19:14: ml/hr, [place] 00 Infuse over: 25 hr, Route: IV, Dosing Weight 141.364 kg, Total Volume: 1,000, Start date: 04/04/18 14:14:00 CDT, Duration: 30 day, Stop date: 05/04/18 14:13:00 CDT, 2.56, m2 Lactated 2018-0 No 1,000 mL, [facility] IV 6-04 Rate: 40 l 1,000 mL 19:14: ml/hr, [place] 00 Infuse over: 25 hr, Route: IV, Dosing Weight 141.364 kg, Total Volume: 1,000, Start date: 04/04/18 14:14:00 CDT, Duration: 30 day, Stop date: 05/04/18 14:13:00 CDT, 2.56, m2 Lactated 2018-0 No 1,000 mL, [facility] IV 6-04 Rate: 40 l 1,000 mL 19:14: ml/hr, [place] 00 Infuse over: 25 hr, Route: IV, Dosing Weight 141.364 kg, Total Volume: 1,000, Start date: 04/04/18 14:14:00 CDT, Duration: 30 day, Stop date: 05/04/18 14:13:00 CDT, 2.56, m2 Lactated 2018-0 No 1,000 mL, [facility] IV 6-04 Rate: 40 l 1,000 mL 19:14: ml/hr, [place] 00 Infuse over: 25 hr, Route: IV, Dosing Weight 141.364 kg, Total Volume: 1,000, Start date: 04/04/18 14:14:00 CDT, Duration: 30 day, Stop date: 05/04/18 14:13:00 CDT, 2.56, m2 Lactated 2018-0 No 1,000 mL, [facility] IV 6-04 Rate: 40 l 1,000 mL 19:14: ml/hr, [place] 00 Infuse over: 25 hr, Route: IV, Dosing Weight 141.364 kg, Total Volume: 1,000, Start date: 04/04/18 14:14:00 CDT, Duration: 30 day, Stop date: 05/04/18 14:13:00 CDT, 2.56, m2 Lactated 2018-0 No 1,000 mL, [facility] IV 6-04 Rate: 40 l 1,000 mL 19:14: ml/hr, [place] 00 Infuse over: 25 hr, Route: IV, Dosing Weight 141.364 kg, Total Volume: 1,000, Start date: 04/04/18 14:14:00 CDT, Duration: 30 day, Stop date: 05/04/18 14:13:00 CDT, 2.56, m2 Lactated 2018-0 No 1,000 mL, [facility] IV 6-04 Rate: 40 l 1,000 mL 19:14: ml/hr, [place] 00 Infuse over: 25 hr, Route: IV, Dosing Weight 141.364 kg, Total Volume: 1,000, Start date: 04/04/18 14:14:00 CDT, Duration: 30 day, Stop date: 05/04/18 14:13:00 CDT, 2.56, m2 Lactated 2018-0 No 1,000 mL, [facility] IV 6-04 Rate: 40 l 1,000 mL 19:14: ml/hr, [place] 00 Infuse over: 25 hr, Route: IV, Dosing Weight 141.364 kg, Total Volume: 1,000, Start date: 04/04/18 14:14:00 CDT, Duration: 30 day, Stop date: 05/04/18 14:13:00 CDT, 2.56, m2 Lactated 2018-0 No 1,000 mL, [facility] IV 6-04 Rate: 40 l 1,000 mL 19:14: ml/hr, [place] 00 Infuse over: 25 hr, Route: IV, Dosing Weight 141.364 kg, Total Volume: 1,000, Start date: 04/04/18 14:14:00 CDT, Duration: 30 day, Stop date: 05/04/18 14:13:00 CDT, 2.56, m2 Lactated 2018-0 No 1,000 mL, [facility] IV 6-04 Rate: 40 l 1,000 mL 19:14: ml/hr, [place] 00 Infuse over: 25 hr, Route: IV, Dosing Weight 141.364 kg, Total Volume: 1,000, Start date: 04/04/18 14:14:00 CDT, Duration: 30 day, Stop date: 05/04/18 14:13:00 CDT, 2.56, m2 Lactated 2018-0 No 1,000 mL, [facility] IV 6-04 Rate: 40 l 1,000 mL 19:14: ml/hr, [place] 00 Infuse over: 25 hr, Route: IV, Dosing Weight 141.364 kg, Total Volume: 1,000, Start date: 04/04/18 14:14:00 CDT, Duration: 30 day, Stop date: 05/04/18 14:13:00 CDT, 2.56, m2 Lactated 2018-0 No 1,000 mL, [facility] IV 6-04 Rate: 40 l 1,000 mL 19:14: ml/hr, [place] 00 Infuse over: 25 hr, Route: IV, Dosing Weight 141.364 kg, Total Volume: 1,000, Start date: 04/04/18 14:14:00 CDT, Duration: 30 day, Stop date: 05/04/18 14:13:00 CDT, 2.56, m2 Lactated 2018-0 No 1,000 mL, [facility] IV 6-04 Rate: 40 l 1,000 mL 19:14: ml/hr, [place] 00 Infuse over: 25 hr, Route: IV, Dosing Weight 141.364 kg, Total Volume: 1,000, Start date: 04/04/18 14:14:00 CDT, Duration: 30 day, Stop date: 05/04/18 14:13:00 CDT, 2.56, m2 Lactated 2018-0 No 1,000 mL, [facility] IV 6-04 Rate: 40 l 1,000 mL 19:14: ml/hr, [place] 00 Infuse over: 25 hr, Route: IV, Dosing Weight 141.364 kg, Total Volume: 1,000, Start date: 04/04/18 14:14:00 CDT, Duration: 30 day, Stop date: 05/04/18 14:13:00 CDT, 2.56, m2 Lactated 2018-0 No 1,000 mL, [facility] IV 6-04 Rate: 40 l 1,000 mL 19:14: ml/hr, [place] 00 Infuse over: 25 hr, Route: IV, Dosing Weight 141.364 kg, Total Volume: 1,000, Start date: 04/04/18 14:14:00 CDT, Duration: 30 day, Stop date: 05/04/18 14:13:00 CDT, 2.56, m2 Lactated 2018-0 No 1,000 mL, [facility] IV 6-04 Rate: 40 l 1,000 mL 19:14: ml/hr, [place] 00 Infuse over: 25 hr, Route: IV, Dosing Weight 141.364 kg, Total Volume: 1,000, Start date: 04/04/18 14:14:00 CDT, Duration: 30 day, Stop date: 05/04/18 14:13:00 CDT, 2.56, m2 Lactated 2018-0 No 1,000 mL, [facility] IV 6-04 Rate: 40 l 1,000 mL 19:14: ml/hr, [place] 00 Infuse over: 25 hr, Route: IV, Dosing Weight 141.364 kg, Total Volume: 1,000, Start date: 04/04/18 14:14:00 CDT, Duration: 30 day, Stop date: 05/04/18 14:13:00 CDT, 2.56, m2 Lactated 2018-0 No 1,000 mL, [facility] IV 6-04 Rate: 40 l 1,000 mL 19:14: ml/hr, [place] 00 Infuse over: 25 hr, Route: IV, Dosing Weight 141.364 kg, Total Volume: 1,000, Start date: 04/04/18 14:14:00 CDT, Duration: 30 day, Stop date: 05/04/18 14:13:00 CDT, 2.56, m2 Lactated 2018-0 No 1,000 mL, [facility] IV 6-04 Rate: 40 l 1,000 mL 19:14: ml/hr, [place] 00 Infuse over: 25 hr, Route: IV, Dosing Weight 141.364 kg, Total Volume: 1,000, Start date: 04/04/18 14:14:00 CDT, Duration: 30 day, Stop date: 05/04/18 14:13:00 CDT, 2.56, m2 Lactated 2018-0 No 1,000 mL, [facility] IV 6-04 Rate: 40 l 1,000 mL 19:14: ml/hr, [place] 00 Infuse over: 25 hr, Route: IV, Dosing Weight 141.364 kg, Total Volume: 1,000, Start date: 04/04/18 14:14:00 CDT, Duration: 30 day, Stop date: 05/04/18 14:13:00 CDT, 2.56, m2 Lactated 2018-0 No 1,000 mL, [facility] IV 6-04 Rate: 40 l 1,000 mL 19:14: ml/hr, [place] 00 Infuse over: 25 hr, Route: IV, Dosing Weight 141.364 kg, Total Volume: 1,000, Start date: 04/04/18 14:14:00 CDT, Duration: 30 day, Stop date: 05/04/18 14:13:00 CDT, 2.56, m2 Lactated 2018-0 No 1,000 mL, [facility] IV 6-04 Rate: 40 l 1,000 mL 19:14: ml/hr, [place] 00 Infuse over: 25 hr, Route: IV, Dosing Weight 141.364 kg, Total Volume: 1,000, Start date: 04/04/18 14:14:00 CDT, Duration: 30 day, Stop date: 05/04/18 14:13:00 CDT, 2.56, m2 Lactated 2018-0 No 1,000 mL, [facility] IV 6-04 Rate: 40 l 1,000 mL 19:14: ml/hr, [place] 00 Infuse over: 25 hr, Route: IV, Dosing Weight 141.364 kg, Total Volume: 1,000, Start date: 04/04/18 14:14:00 CDT, Duration: 30 day, Stop date: 05/04/18 14:13:00 CDT, 2.56, m2 Lactated 2018-0 No 1,000 mL, [facility] IV 6-04 Rate: 40 l 1,000 mL 19:14: ml/hr, [place] 00 Infuse over: 25 hr, Route: IV, Dosing Weight 141.364 kg, Total Volume: 1,000, Start date: 04/04/18 14:14:00 CDT, Duration: 30 day, Stop date: 05/04/18 14:13:00 CDT, 2.56, m2 Lactated 2018-0 No 1,000 mL, [facility] IV 6-04 Rate: 40 l 1,000 mL 19:14: ml/hr, [place] 00 Infuse over: 25 hr, Route: IV, Dosing Weight 141.364 kg, Total Volume: 1,000, Start date: 04/04/18 14:14:00 CDT, Duration: 30 day, Stop date: 05/04/18 14:13:00 CDT, 2.56, m2 Lactated 2018-0 No 1,000 mL, [facility] IV 6-04 Rate: 40 l 1,000 mL 19:14: ml/hr, [place] 00 Infuse over: 25 hr, Route: IV, Dosing Weight 141.364 kg, Total Volume: 1,000, Start date: 04/04/18 14:14:00 CDT, Duration: 30 day, Stop date: 05/04/18 14:13:00 CDT, 2.56, m2 Lactated 2018-0 No 1,000 mL, [facility] IV 6-04 Rate: 40 l 1,000 mL 19:14: ml/hr, [place] 00 Infuse over: 25 hr, Route: IV, Dosing Weight 141.364 kg, Total Volume: 1,000, Start date: 04/04/18 14:14:00 CDT, Duration: 30 day, Stop date: 05/04/18 14:13:00 CDT, 2.56, m2 Lactated 2018-0 No 1,000 mL, [facility] IV 6-04 Rate: 40 l 1,000 mL 19:14: ml/hr, [place] 00 Infuse over: 25 hr, Route: IV, Dosing Weight 141.364 kg, Total Volume: 1,000, Start date: 04/04/18 14:14:00 CDT, Duration: 30 day, Stop date: 05/04/18 14:13:00 CDT, 2.56, m2 Lactated 2018-0 No 1,000 mL, [facility] IV 6-04 Rate: 40 l 1,000 mL 19:14: ml/hr, [place] 00 Infuse over: 25 hr, Route: IV, Dosing Weight 141.364 kg, Total Volume: 1,000, Start date: 04/04/18 14:14:00 CDT, Duration: 30 day, Stop date: 05/04/18 14:13:00 CDT, 2.56, m2 Lactated 2018-0 No 1,000 mL, [facility] IV 6-04 Rate: 40 l 1,000 mL 19:14: ml/hr, [place] 00 Infuse over: 25 hr, Route: IV, Dosing Weight 141.364 kg, Total Volume: 1,000, Start date: 04/04/18 14:14:00 CDT, Duration: 30 day, Stop date: 05/04/18 14:13:00 CDT, 2.56, m2 Lactated 2018-0 No 1,000 mL, [facility] IV 6-04 Rate: 40 l 1,000 mL 19:14: ml/hr, [place] 00 Infuse over: 25 hr, Route: IV, Dosing Weight 141.364 kg, Total Volume: 1,000, Start date: 04/04/18 14:14:00 CDT, Duration: 30 day, Stop date: 05/04/18 14:13:00 CDT, 2.56, m2 Lactated 2018-0 No 1,000 mL, [facility] IV 6-04 Rate: 40 l 1,000 mL 19:14: ml/hr, [place] 00 Infuse over: 25 hr, Route: IV, Dosing Weight 141.364 kg, Total Volume: 1,000, Start date: 04/04/18 14:14:00 CDT, Duration: 30 day, Stop date: 05/04/18 14:13:00 CDT, 2.56, m2 Lactated 2018-0 No 1,000 mL, [facility] IV 6-04 Rate: 40 l 1,000 mL 19:14: ml/hr, [place] 00 Infuse over: 25 hr, Route: IV, Dosing Weight 141.364 kg, Total Volume: 1,000, Start date: 04/04/18 14:14:00 CDT, Duration: 30 day, Stop date: 05/04/18 14:13:00 CDT, 2.56, m2 Lactated 2018-0 No 1,000 mL, [facility] IV 6-04 Rate: 40 l 1,000 mL 19:14: ml/hr, [place] 00 Infuse over: 25 hr, Route: IV, Dosing Weight 141.364 kg, Total Volume: 1,000, Start date: 04/04/18 14:14:00 CDT, Duration: 30 day, Stop date: 05/04/18 14:13:00 CDT, 2.56, m2 Lactated 2018-0 No 1,000 mL, [facility] IV 6-04 Rate: 40 l 1,000 mL 19:14: ml/hr, [place] 00 Infuse over: 25 hr, Route: IV, Dosing Weight 141.364 kg, Total Volume: 1,000, Start date: 04/04/18 14:14:00 CDT, Duration: 30 day, Stop date: 05/04/18 14:13:00 CDT, 2.56, m2 Lactated 2018-0 No 1,000 mL, [facility] IV 6-04 Rate: 40 l 1,000 mL 19:14: ml/hr, [place] 00 Infuse over: 25 hr, Route: IV, Dosing Weight 141.364 kg, Total Volume: 1,000, Start date: 04/04/18 14:14:00 CDT, Duration: 30 day, Stop date: 05/04/18 14:13:00 CDT, 2.56, m2 Lactated 2018-0 No 1,000 mL, [facility] IV 6-04 Rate: 40 l 1,000 mL 19:14: ml/hr, [place] 00 Infuse over: 25 hr, Route: IV, Dosing Weight 141.364 kg, Total Volume: 1,000, Start date: 04/04/18 14:14:00 CDT, Duration: 30 day, Stop date: 05/04/18 14:13:00 CDT, 2.56, m2 Lactated 2018-0 No 1,000 mL, [facility] IV 6-04 Rate: 40 l 1,000 mL 19:14: ml/hr, [place] 00 Infuse over: 25 hr, Route: IV, Dosing Weight 141.364 kg, Total Volume: 1,000, Start date: 04/04/18 14:14:00 CDT, Duration: 30 day, Stop date: 05/04/18 14:13:00 CDT, 2.56, m2 Lactated 2018-0 No 1,000 mL, [facility] IV 6-04 Rate: 40 l 1,000 mL 19:14: ml/hr, [place] 00 Infuse over: 25 hr, Route: IV, Dosing Weight 141.364 kg, Total Volume: 1,000, Start date: 04/04/18 14:14:00 CDT, Duration: 30 day, Stop date: 05/04/18 14:13:00 CDT, 2.56, m2 Lactated 2018-0 No 1,000 mL, [facility] IV 6-04 Rate: 40 l 1,000 mL 19:14: ml/hr, [place] 00 Infuse over: 25 hr, Route: IV, Dosing Weight 141.364 kg, Total Volume: 1,000, Start date: 04/04/18 14:14:00 CDT, Duration: 30 day, Stop date: 05/04/18 14:13:00 CDT, 2.56, m2 Lactated 2018-0 No 1,000 mL, [facility] IV 6-04 Rate: 40 l 1,000 mL 19:14: ml/hr, [place] 00 Infuse over: 25 hr, Route: IV, Dosing Weight 141.364 kg, Total Volume: 1,000, Start date: 04/04/18 14:14:00 CDT, Duration: 30 day, Stop date: 05/04/18 14:13:00 CDT, 2.56, m2 Lactated 2018-0 No 1,000 mL, [facility] IV 6-04 Rate: 40 l 1,000 mL 19:14: ml/hr, [place] 00 Infuse over: 25 hr, Route: IV, Dosing Weight 141.364 kg, Total Volume: 1,000, Start date: 04/04/18 14:14:00 CDT, Duration: 30 day, Stop date: 05/04/18 14:13:00 CDT, 2.56, m2 Lactated 2018-0 No 1,000 mL, [facility] IV 6-04 Rate: 40 l 1,000 mL 19:14: ml/hr, [place] 00 Infuse over: 25 hr, Route: IV, Dosing Weight 141.364 kg, Total Volume: 1,000, Start date: 04/04/18 14:14:00 CDT, Duration: 30 day, Stop date: 05/04/18 14:13:00 CDT, 2.56, m2 Lactated 2018-0 No 1,000 mL, [facility] IV 6-04 Rate: 40 l 1,000 mL 19:14: ml/hr, [place] 00 Infuse over: 25 hr, Route: IV, Dosing Weight 141.364 kg, Total Volume: 1,000, Start date: 04/04/18 14:14:00 CDT, Duration: 30 day, Stop date: 05/04/18 14:13:00 CDT, 2.56, m2 Lactated 2018-0 No 1,000 mL, [facility] IV 6-04 Rate: 40 l 1,000 mL 19:14: ml/hr, [place] 00 Infuse over: 25 hr, Route: IV, Dosing Weight 141.364 kg, Total Volume: 1,000, Start date: 04/04/18 14:14:00 CDT, Duration: 30 day, Stop date: 05/04/18 14:13:00 CDT, 2.56, m2 Lactated 2018-0 No 1,000 mL, [facility] IV 6-04 Rate: 40 l 1,000 mL 19:14: ml/hr, [place] 00 Infuse over: 25 hr, Route: IV, Dosing Weight 141.364 kg, Total Volume: 1,000, Start date: 04/04/18 14:14:00 CDT, Duration: 30 day, Stop date: 05/04/18 14:13:00 CDT, 2.56, m2 Lactated 2018-0 No 1,000 mL, [facility] IV 6-04 Rate: 40 l 1,000 mL 19:14: ml/hr, [place] 00 Infuse over: 25 hr, Route: IV, Dosing Weight 141.364 kg, Total Volume: 1,000, Start date: 04/04/18 14:14:00 CDT, Duration: 30 day, Stop date: 05/04/18 14:13:00 CDT, 2.56, m2 Lactated 2018-0 No 1,000 mL, [facility] IV 6-04 Rate: 40 l 1,000 mL 19:14: ml/hr, [place] 00 Infuse over: 25 hr, Route: IV, Dosing Weight 141.364 kg, Total Volume: 1,000, Start date: 04/04/18 14:14:00 CDT, Duration: 30 day, Stop date: 05/04/18 14:13:00 CDT, 2.56, m2 Lactated 2018-0 No 1,000 mL, [facility] IV 6-04 Rate: 40 l 1,000 mL 19:14: ml/hr, [place] 00 Infuse over: 25 hr, Route: IV, Dosing Weight 141.364 kg, Total Volume: 1,000, Start date: 04/04/18 14:14:00 CDT, Duration: 30 day, Stop date: 05/04/18 14:13:00 CDT, 2.56, m2 Lactated 2018-0 No 1,000 mL, [facility] IV 6-04 Rate: 40 l 1,000 mL 19:14: ml/hr, [place] 00 Infuse over: 25 hr, Route: IV, Dosing Weight 141.364 kg, Total Volume: 1,000, Start date: 04/04/18 14:14:00 CDT, Duration: 30 day, Stop date: 05/04/18 14:13:00 CDT, 2.56, m2 Lactated 2018-0 No 1,000 mL, [facility] IV 6-04 Rate: 40 l 1,000 mL 19:14: ml/hr, [place] 00 Infuse over: 25 hr, Route: IV, Dosing Weight 141.364 kg, Total Volume: 1,000, Start date: 04/04/18 14:14:00 CDT, Duration: 30 day, Stop date: 05/04/18 14:13:00 CDT, 2.56, m2 Lactated 2018-0 No 1,000 mL, [facility] IV 6-04 Rate: 40 l 1,000 mL 19:14: ml/hr, [place] 00 Infuse over: 25 hr, Route: IV, Dosing Weight 141.364 kg, Total Volume: 1,000, Start date: 04/04/18 14:14:00 CDT, Duration: 30 day, Stop date: 05/04/18 14:13:00 CDT, 2.56, m2 Lactated 2018-0 No 1,000 mL, [facility] IV 6-04 Rate: 40 l 1,000 mL 19:14: ml/hr, [place] 00 Infuse over: 25 hr, Route: IV, Dosing Weight 141.364 kg, Total Volume: 1,000, Start date: 04/04/18 14:14:00 CDT, Duration: 30 day, Stop date: 05/04/18 14:13:00 CDT, 2.56, m2 Lactated 2018-0 No 1,000 mL, [facility] IV 6-04 Rate: 40 l 1,000 mL 19:14: ml/hr, [place] 00 Infuse over: 25 hr, Route: IV, Dosing Weight 141.364 kg, Total Volume: 1,000, Start date: 04/04/18 14:14:00 CDT, Duration: 30 day, Stop date: 05/04/18 14:13:00 CDT, 2.56, m2 Lactated 2018-0 No 1,000 mL, [facility] IV 6-04 Rate: 40 l 1,000 mL 19:14: ml/hr, [place] 00 Infuse over: 25 hr, Route: IV, Dosing Weight 141.364 kg, Total Volume: 1,000, Start date: 04/04/18 14:14:00 CDT, Duration: 30 day, Stop date: 05/04/18 14:13:00 CDT, 2.56, m2 Lactated 2018-0 No 1,000 mL, [place] jenna Ringers IV 6-04 Rate: 40 l 1,000 mL 19:14: ml/hr, [place] 00 Infuse over: 25 hr, Route: IV, Dosing Weight 141.364 kg, Total Volume: 1,000, Start date: 04/04/18 14:14:00 CDT, Duration: 30 day, Stop date: 05/04/18 14:13:00 CDT, 2.56, m2 Lactated 2018-0 No 1,000 mL, [place] jenna Ringers IV 6 Rate: 40 l 1,000 mL 19:14: ml/hr, [place] 00 Infuse over: 25 hr, Route: IV, Dosing Weight 141.364 kg, Total Volume: 1,000, Start date: 04/04/18 14:14:00 CDT, Duration: 30 day, Stop date: 05/04/18 14:13:00 CDT, 2.56, m2 Lactated 2018-0 No 1,000 mL, [place] jenna Ringers IV 04-04 Rate: 40 l 1,000 mL 19:14: ml/hr, [place] 00 Infuse over: 25 hr, Route: IV, [...] 70/30 5-15 SUB-Q, l 18:44: QPM, 0 [place] 00 Refill(s) Humulin 2018-0 Yes 60 unit, [facility] a 70/30 5-15 SUB-Q, l 18:44: QPM, 0 [place] 00 Refill(s) Humulin 2018-0 Yes 60 unit, [facility] a 70/30 5-15 SUB-Q, l 18:44: QPM, 0 [place] 00 Refill(s) Humulin 2018-0 Yes 60 unit, [facility] a 70/30 5-15 SUB-Q, l 18:44: QPM, 0 [place] 00 Refill(s) Humulin 2018-0 Yes 60 unit, [facility] a 70/30 5-15 SUB-Q, l 18:44: QPM, 0 [place] 00 Refill(s) Humulin 2018-0 Yes 60 unit, [facility] a 70/30 5-15 SUB-Q, l 18:44: QPM, 0 [place] 00 Refill(s) Humulin 2018-0 Yes 60 unit, [facility] a 70/30 5-15 SUB-Q, l 18:44: QPM, 0 [place] 00 Refill(s) Humulin 2018-0 Yes 60 unit, [facility] a 70/30 5-15 SUB-Q, l 18:44: QPM, 0 [place] 00 Refill(s) Humulin 2018-0 Yes 60 unit, [facility] a 70/30 5-15 SUB-Q, l 18:44: QPM, 0 [place] 00 Refill(s) Humulin 2018-0 Yes 60 unit, [facility] a 70/30 5-15 SUB-Q, l 18:44: QPM, 0 [place] 00 Refill(s) Humulin 2018-0 Yes 60 unit, [facility] a 70/30 5-15 SUB-Q, l 18:44: QPM, 0 [place] 00 Refill(s) Humulin 2018-0 Yes 60 unit, [facility] a 70/30 5-15 SUB-Q, l 18:44: QPM, 0 [place] 00 Refill(s) Humulin 2018-0 Yes 60 unit, [facility] a 70/30 5-15 SUB-Q, l 18:44: QPM, 0 [place] 00 Refill(s) Humulin 2018-0 Yes 60 unit, [...] 70/30 5-15 SUB-Q, l 18:44: QPM, 0 [place] 00 Refill(s) Humulin 2017-0 Yes 60 unit, [facility] a 70/30 5-15 SUB-Q, l 18:44: QPM, 0 [place] 00 Refill(s) Humulin 2018-0 Yes 60 unit, [...] 70/30 5-15 SUB-Q, l 18:44: QPM, 0 [place] 00 Refill(s) Humulin 2018-0 Yes 60 unit, [facility] a 70/30 5-15 SUB-Q, l 18:44: QPM, 0 [place] 00 Refill(s) Humulin 2018-0 Yes 60 unit, [facility] a 70/30 5-15 SUB-Q, l 18:44: QPM, 0 [place] 00 Refill(s) Humulin 2018-0 Yes 60 unit, [...] 70/30 5-15 SUB-Q, l 18:44: QPM, 0 [place] 00 Refill(s) Humulin 2018-0 Yes 60 unit, [facility] a 70/30 5-15 SUB-Q, l 18:44: QPM, 0 [place] 00 Refill(s) Humulin 2018-0 Yes 60 unit, [facility] a 70/30 5-15 SUB-Q, l 18:44: QPM, 0 [place] 00 Refill(s) Humulin 2018-0 Yes 60 unit, [facility] a 70/30 5-15 SUB-Q, l 18:44: QPM, 0 [place] 00 Refill(s) Humulin 2018-0 Yes 60 unit, [facility] a 70/30 5-15 SUB-Q, l 18:44: QPM, 0 [place] 00 Refill(s) Humulin 2018-0 Yes 60 unit, [facility] a 70/30 5-15 SUB-Q, l 18:44: QPM, 0 [place] 00 Refill(s) Humulin 2018-0 Yes 60 unit, [facility] a 70/30 5-15 SUB-Q, l 18:44: QPM, 0 [place] 00 Refill(s) Humulin 2018-0 Yes 60 unit, [facility] a 70/30 5-15 SUB-Q, l 18:44: QPM, 0 [place] 00 Refill(s) Humulin 2017-0 Yes 60 unit, [facility] a 70/30 5-15 SUB-Q, l 18:44: QPM, 0 [place] 00 Refill(s) Humulin 2017-0 Yes 60 unit, [facility] a 70/30 5-15 SUB-Q, l 18:44: QPM, 0 [place] 00 Refill(s) Humulin 2017-0 Yes 60 unit, [facility] 70/30 5-15 SUB-Q, l 18:44: QPM, 0 [place] 00 Refill(s) Humulin 2018-0 Yes 60 unit, [facility] 70/30 5-15 SUB-Q, l 18:44: QPM, 0 [place] 00 Refill(s) Humulin 2018-0 Yes 60 unit, [facility] 70/30 5-15 SUB-Q, l 18:44: QPM, 0 [place] 00 Refill(s) Humulin 2018-0 Yes 60 unit, [facility] 70/30 5-15 SUB-Q, l 18:44: QPM, 0 [place] 00 Refill(s) Humulin 2018-0 Yes 60 unit, [facility] 70/30 5-15 SUB-Q, l 18:44: QPM, 0 [place] 00 Refill(s) Humulin 2018-0 Yes 60 unit, [facility] 70/30 5-15 SUB-Q, l 18:44: QPM, 0 [place] 00 Refill(s) Humulin 2018-0 Yes 60 unit, [facility] 70/30 5-15 SUB-Q, l 18:44: QPM, 0 [place] 00 Refill(s) Humulin 2018-0 Yes 60 unit, [facility] 70/30 5-15 SUB-Q, l 18:44: QPM, 0 [place] 00 Refill(s) Humulin 2018-0 Yes 60 unit, [facility] 70/30 5-15 SUB-Q, l 18:44: QPM, 0 [place] 00 Refill(s) Humulin 2018-0 Yes 60 unit, [facility] 70/30 5-15 SUB-Q, l 18:44: QPM, 0 [place] 00 Refill(s) Humulin 2018-0 Yes 60 unit, [facility] 70/30 5-15 SUB-Q, l 18:44: QPM, 0 [place] 00 Refill(s) Humulin 2017-0 Yes 60 unit, [facility] 70/30 5-15 SUB-Q, l 18:44: QPM, 0 [place] 00 Refill(s) Humulin 2017-0 Yes 60 unit, [facility] 70/30 5-15 SUB-Q, l 18:44: QPM, 0 [place] 00 Refill(s) Humulin 2017-0 Yes 60 unit, [...] 70/30 5-15 SUB-Q, l 18:44: QPM, 0 [place] 00 Refill(s) Humulin 2017-0 Yes 60 unit, [facility] 70/30 5-15 SUB-Q, l 18:44: QPM, 0 [place] 00 Refill(s) Humulin 2017-0 Yes 60 unit, [facility] 70/30 5-15 SUB-Q, l 18:44: QPM, 0 [place] 00 Refill(s) Humulin 2018-0 Yes 60 unit, [facility] 70/30 5-15 SUB-Q, l 18:44: QPM, 0 [place] 00 Refill(s) Humulin 2018-0 Yes 60 unit, [facility] 70/30 5-15 SUB-Q, l 18:44: QPM, 0 [place] 00 Refill(s) Humulin 2018-0 Yes 60 unit, [facility] 70/30 5-15 SUB-Q, l 18:44: QPM, 0 [place] 00 Refill(s) Humulin 2018-0 Yes 60 unit, [facility] 70/30 5-15 SUB-Q, l 18:44: QPM, 0 [place] 00 Refill(s) Humulin 2018-0 Yes 60 unit, [facility] 70/30 5-15 SUB-Q, l 18:44: QPM, 0 [place] 00 Refill(s) Humulin 2018-0 Yes 60 unit, [facility] 70/30 5-15 SUB-Q, l 18:44: QPM, 0 [place] 00 Refill(s) Humulin 2018-0 Yes 60 unit, [facility] 70/30 5-15 SUB-Q, l 18:44: QPM, 0 [place] 00 Refill(s) Humulin 2018-0 Yes 60 unit, [facility] 70/30 5-15 SUB-Q, l 18:44: QPM, 0 [place] 00 Refill(s) Humulin 2018-0 Yes 60 unit, [facility] 70/30 5-15 SUB-Q, l 18:44: QPM, 0 [place] 00 Refill(s) Humulin 2018-0 Yes 60 unit, [facility] 70/30 5-15 SUB-Q, l 18:44: QPM, 0 [place] 00 Refill(s) Humulin 2018-0 Yes 60 unit, [facility] 70/30 5-15 SUB-Q, l 18:44: QPM, 0 [place] 00 Refill(s) Humulin 2018-0 Yes 60 unit, [facility] 70/30 5-15 SUB-Q, l 18:44: QPM, 0 [place] 00 Refill(s) Humulin 2018-0 Yes 60 unit, [facility] 70/30 5-15 SUB-Q, l 18:44: QPM, 0 [place] 00 Refill(s) Humulin 2018-0 Yes 60 unit, [facility] 70/30 5-15 SUB-Q, l 18:44: QPM, 0 [place] 00 Refill(s) Humulin 2018-0 Yes 60 unit, [facility] 70/30 5-15 SUB-Q, l 18:44: QPM, 0 [place] 00 Refill(s) Humulin 2018-0 Yes 60 unit, [facility] 70/30 5-15 SUB-Q, l 18:44: QPM, 0 [place] 00 Refill(s) Humulin 2018-0 Yes 60 unit, [facility] 70/30 5-15 SUB-Q, l 18:44: QPM, 0 [place] 00 Refill(s) Humulin 2018-0 Yes 60 unit, [facility] 70/30 5-15 SUB-Q, l 18:44: QPM, 0 [place] 00 Refill(s) Humulin 2017-0 Yes 60 unit, [facility] 70/30 5-15 SUB-Q, l 18:44: QPM, 0 [place] 00 Refill(s) Humulin 2018-0 Yes 60 unit, [facility] 70/30 5-15 SUB-Q, l 18:44: QPM, 0 [place] 00 Refill(s) Humulin 2018-0 Yes 70 unit, [facility] 70/30 5-15 SUB-Q, l 18:43: QAM, 0 [place] 00 Refill(s) Humulin 2018-0 Yes 70 unit, [facility] 70/30 5-15 SUB-Q, l 18:43: QAM, 0 [place] 00 Refill(s) Humulin 2018-0 Yes 70 unit, [facility] 70/30 5-15 SUB-Q, l 18:43: QAM, 0 [place] 00 Refill(s) Humulin 2018-0 Yes 70 unit, [facility] 70/30 5-15 SUB-Q, l 18:43: QAM, 0 [place] 00 Refill(s) Humulin 2018-0 Yes 70 unit, [facility] 70/30 5-15 SUB-Q, l 18:43: QAM, 0 [place] 00 Refill(s) Humulin 2018-0 Yes 70 unit, [facility] 70/30 5-15 SUB-Q, l 18:43: QAM, 0 [place] 00 Refill(s) Humulin 2018-0 Yes 70 unit, [facility] 70/30 5-15 SUB-Q, l 18:43: QAM, 0 [place] 00 Refill(s) Humulin 2018-0 Yes 70 unit, [...] 70/30 5-15 SUB-Q, l 18:43: QAM, 0 [place] 00 Refill(s) Humulin 2018-0 Yes 70 unit, [facility] 70/30 5-15 SUB-Q, l 18:43: QAM, 0 [place] 00 Refill(s) Humulin 2018-0 Yes 70 unit, [facility] 70/30 5-15 SUB-Q, l 18:43: QAM, 0 [place] 00 Refill(s) Humulin 2018-0 Yes 70 unit, [facility] 70/30 5-15 SUB-Q, l 18:43: QAM, 0 [place] 00 Refill(s) Humulin 2018-0 Yes 70 unit, [facility] 70/30 5-15 SUB-Q, l 18:43: QAM, 0 [place] 00 Refill(s) Humulin 2018-0 Yes 70 unit, [facility] 70/30 5-15 SUB-Q, l 18:43: QAM, 0 [place] 00 Refill(s) Humulin 2018-0 Yes 70 unit, [facility] 70/30 5-15 SUB-Q, l 18:43: QAM, 0 [place] 00 Refill(s) Humulin 2018-0 Yes 70 unit, [facility] 70/30 5-15 SUB-Q, l 18:43: QAM, 0 [place] 00 Refill(s) Humulin 2018-0 Yes 70 unit, [facility] 70/30 5-15 SUB-Q, l 18:43: QAM, 0 [place] 00 Refill(s) Humulin 2018-0 Yes 70 unit, [facility] 70/30 5-15 SUB-Q, l 18:43: QAM, 0 [place] 00 Refill(s) Humulin 2018-0 Yes 70 unit, [facility] 70/30 5-15 SUB-Q, l 18:43: QAM, 0 [place] 00 Refill(s) Humulin 2018-0 Yes 70 unit, [facility] 70/30 5-15 SUB-Q, l 18:43: QAM, 0 [place] 00 Refill(s) Humulin 2017-0 Yes 70 unit, [facility] 70/30 5-15 SUB-Q, l 18:43: QAM, 0 [place] 00 Refill(s) Humulin 2018-0 Yes 70 unit, [facility] 70/30 5-15 SUB-Q, l 18:43: QAM, 0 [place] 00 Refill(s) Humulin 2018-0 Yes 70 unit, [facility] 70/30 5-15 SUB-Q, l 18:43: QAM, 0 [place] 00 Refill(s) Humulin 2018-0 Yes 70 unit, [facility] 70/30 5-15 SUB-Q, l 18:43: QAM, 0 [place] 00 Refill(s) Humulin 2018-0 Yes 70 unit, [facility] 70/30 5-15 SUB-Q, l 18:43: QAM, 0 [place] 00 Refill(s) Humulin 2018-0 Yes 70 unit, [facility] 70/30 5-15 SUB-Q, l 18:43: QAM, 0 [place] 00 Refill(s) Humulin 2018-0 Yes 70 unit, [...] 70/30 5-15 SUB-Q, l 18:43: QAM, 0 [place] 00 Refill(s) Humulin 2018-0 Yes 70 unit, [facility] 70/30 5-15 SUB-Q, l 18:43: QAM, 0 [place] 00 Refill(s) Humulin 2018-0 Yes 70 unit, [facility] 70/30 5-15 SUB-Q, l 18:43: QAM, 0 [place] 00 Refill(s) Humulin 2017-0 Yes 70 unit, [facility] 70/30 5-15 SUB-Q, l 18:43: QAM, 0 [place] 00 Refill(s) Humulin 2017-0 Yes 70 unit, [facility] 70/30 5-15 SUB-Q, l 18:43: QAM, 0 [place] 00 Refill(s) Humulin 2017-0 Yes 70 unit, [facility] 70/30 5-15 SUB-Q, l 18:43: QAM, 0 [place] 00 Refill(s) Humulin 2017-0 Yes 70 unit, [facility] 70/30 5-15 SUB-Q, l 18:43: QAM, 0 [place] 00 Refill(s) Humulin 2018-0 Yes 70 unit, [facility] 70/30 5-15 SUB-Q, l 18:43: QAM, 0 [place] 00 Refill(s) Humulin 2018-0 Yes 70 unit, [facility] 70/30 5-15 SUB-Q, l 18:43: QAM, 0 [place] 00 Refill(s) Humulin 2018-0 Yes 70 unit, [facility] 70/30 5-15 SUB-Q, l 18:43: QAM, 0 [place] 00 Refill(s) Humulin 2018-0 Yes 70 unit, [facility] 70/30 5-15 SUB-Q, l 18:43: QAM, 0 [place] 00 Refill(s) Humulin 2018-0 Yes 70 unit, [facility] a 70/30 5-15 SUB-Q, l 18:43: QAM, 0 [place] 00 Refill(s) Humulin 2018-0 Yes 70 unit, [facility] a 70/30 5-15 SUB-Q, l 18:43: QAM, 0 [place] 00 Refill(s) Humulin 2018-0 Yes 70 unit, [facility] a 70/30 5-15 SUB-Q, l 18:43: QAM, 0 [place] 00 Refill(s) Humulin 2018-0 Yes 70 unit, [...] 70/30 5-15 SUB-Q, l 18:43: QAM, 0 [place] 00 Refill(s) Humulin 2018-0 Yes 70 unit, [facility] a 70/30 5-15 SUB-Q, l 18:43: QAM, 0 [place] 00 Refill(s) Humulin 2018-0 Yes 70 unit, [facility] a 70/30 5-15 SUB-Q, l 18:43: QAM, 0 [place] 00 Refill(s) Humulin 2018-0 Yes 70 unit, [facility] a 70/30 5-15 SUB-Q, l 18:43: QAM, 0 [place] 00 Refill(s) Humulin 2018-0 Yes 70 unit, [facility] a 70/30 5-15 SUB-Q, l 18:43: QAM, 0 [place] 00 Refill(s) Humulin 2018-0 Yes 70 unit, [facility] a 70/30 5-15 SUB-Q, l 18:43: QAM, 0 [place] 00 Refill(s) Humulin 2018-0 Yes 70 unit, [facility] a 70/30 5-15 SUB-Q, l 18:43: QAM, 0 [place] 00 Refill(s) Humulin 2018-0 Yes 70 unit, [facility] a 70/30 5-15 SUB-Q, l 18:43: QAM, 0 [place] 00 Refill(s) Humulin 2018-0 Yes 70 unit, [...] 70/30 5-15 SUB-Q, l 18:43: QAM, 0 [place] 00 Refill(s) Humulin 2018-0 Yes 70 unit, [...] 70/30 5-15 SUB-Q, l 18:43: QAM, 0 [place] 00 Refill(s) Humulin 2018-0 Yes 70 unit, [facility] a 70/30 5-15 SUB-Q, l 18:43: QAM, 0 [place] 00 Refill(s) Humulin 2017-0 Yes 70 unit, [facility] a 70/30 5-15 SUB-Q, l 18:43: QAM, 0 [place] 00 Refill(s) Humulin 2018-0 Yes 70 unit, [facility] a 70/30 5-15 SUB-Q, l 18:43: QAM, 0 [place] 00 Refill(s) Humulin 2018-0 Yes 70 unit, [facility] 70/30 5-15 SUB-Q, l 18:43: QAM, 0 [place] 00 Refill(s) Humulin 2017-0 Yes 70 unit, [facility] a 70/30 5-15 SUB-Q, l 18:43: QAM, 0 [place] 00 Refill(s) Humulin 2017-0 Yes 70 unit, [facility] a 70/30 5-15 SUB-Q, l 18:43: QAM, 0 [place] 00 Refill(s) Humulin 2017-0 Yes 70 unit, [facility] a 70/30 5-15 SUB-Q, l 18:43: QAM, 0 [place] 00 Refill(s) Humulin Yes 70 unit, [facility] a 70/30 5-15 SUB-Q, l 18:43: QAM, 0 [place] 00 Refill(s) Humulin 2017-0 Yes 70 unit, [facility] a 70/30 5-15 SUB-Q, l 18:43: QAM, 0 [place] 00 Refill(s) Humulin 2017-0 Yes 70 unit, [...] Puffs ity of mcg/actuati 00:00: every 4 [place] as on inhaler 00 (four) Medical hours [...] tab, PO, l Tablet 16:37: TID, 0 [place] [Xanax] 00 Refill(s) Alprazolam Yes 2 mg [...] tab, PO, l Tablet 16:37: TID, 0 [place] [Xanax] 00 Refill(s) Alprazolam Yes 2 mg = 1 [facility] 2 MG Oral 07 tab, PO, l Tablet 16:37: TID, 0 [place] [Xanax] 00 Refill(s) Alprazolam Yes 2 mg = 1 [facility] 2 MG Oral 1-07 tab, PO, l Tablet 16:37: TID, 0 [place] [Xanax] 00 Refill(s) Alprazolam 20160 Yes 2 mg = 1 [facility] 2 MG Oral 1-07 tab, PO, l Tablet 16:37: TID, 0 [place] [Xanax] 00 Refill(s) Alprazolam 20160 Yes 2 [...] tab, PO, l Tablet 16:37: TID, 0 [place] [Xanax] 00 Refill(s) Alprazolam 0 Yes 2 mg = 1 [facility] 2 MG Oral -07 tab, PO, l Tablet 16:37: TID, 0 [place] [Xanax] 00 Refill(s) Alprazolam 2016 Yes 2 mg = 1 [facility] 2 MG Oral -07 tab, PO, l Tablet 16:37: TID, 0 [place] [Xanax] 00 Refill(s) Alprazolam 0 Yes 2 [...] tab, PO, l Tablet 16:37: TID, 0 [place] [Xanax] 00 Refill(s) Alprazolam 20160 Yes 2 [...] tab, PO, l Tablet 16:37: TID, 0 [place] [Xanax] 00 Refill(s) Alprazolam 2016 Yes 2 [...] tab, PO, l Tablet 16:37: TID, 0 [place] [Xanax] 00 Refill(s) Alprazolam 20160 Yes 2 mg = 1 [place] [facility] 2 MG Oral -07 tab, PO, l Tablet 16:37: TID, 0 [place] [Xanax] 00 Refill(s) Alprazolam 20160 Yes 2 mg = 1 [facility] 2 MG Oral -07 tab, PO, l Tablet 16:37: TID, 0 [place] [Xanax] 00 Refill(s) Alprazolam 20160 Yes 2 mg = 1 [facility] 2 MG Oral 1-07 tab, PO, l Tablet 16:37: TID, 0 [place] [Xanax] 00 Refill(s) Alprazolam 2016-0 Yes 2 mg = 1 [facility] 2 MG Oral 1-07 tab, PO, l Tablet 16:37: TID, 0 [place] [Xanax] 00 Refill(s) Alprazolam 20160 Yes 2 mg = 1 [facility] 2 MG Oral -07 tab, PO, l Tablet 16:37: TID, 0 [place] [Xanax] 00 Refill(s) Alprazolam 20160 Yes 2 mg = 1 [facility] 2 MG Oral -07 tab, PO, l Tablet 16:37: TID, 0 [place] [Xanax] 00 Refill(s) Alprazolam 20160 Yes 2 mg = 1 [facility] 2 MG Oral -07 tab, PO, l Tablet 16:37: TID, 0 [place] [Xanax] 00 Refill(s) Alprazolam 20160 Yes 2 mg = 1 [facility] 2 MG Oral -07 tab, PO, l Tablet 16:37: TID, 0 [place] [Xanax] 00 Refill(s) Alprazolam 20160 Yes 2 mg = 1 [facility] 2 MG Oral 07 tab, PO, l Tablet 16:37: TID, 0 [place] [Xanax] 00 Refill(s) Alprazolam 20160 Yes 2 mg = 1 [facility] 2 MG Oral -07 tab, PO, l Tablet 16:37: TID, 0 [place] [Xanax] 00 Refill(s) Alprazolam 20160 Yes 2 mg = 1 [facility] 2 MG Oral 07 tab, PO, l Tablet 16:37: TID, 0 [place] [Xanax] 00 Refill(s) Alprazolam 20160 Yes 2 [...] tab, PO, l Tablet 16:37: TID, 0 [place] [Xanax] 00 Refill(s) Alprazolam 2016-0 Yes 2 mg = 1 [facility] 2 MG Oral -07 tab, PO, l Tablet 16:37: TID, 0 [place] [Xanax] 00 Refill(s) Alprazolam 20160 Yes 2 mg = 1 [facility] 2 MG Oral -07 tab, PO, l Tablet 16:37: TID, 0 [place] [Xanax] 00 Refill(s) Alprazolam 20160 Yes 2 mg = 1 [facility] 2 MG Oral 11-07 tab, PO, l Tablet 16:37: TID, 0 [place] [Xanax] 00 Refill(s) Alprazolam 20160 Yes 2 mg = 1 [facility] 2 MG Oral 11-07 tab, PO, l Tablet 16:37: TID, 0 [place] [Xanax] 00 Refill(s) Alprazolam 20160 Yes 2 mg = 1 [facility] 2 MG Oral 11-07 tab, PO, l Tablet 16:37: TID, 0 [place] [Xanax] 00 Refill(s) Alprazolam 20160 Yes 2 mg = 1 [facility] 2 MG Oral 11-07 tab, PO, l Tablet 16:37: TID, 0 [place] [Xanax] 00 Refill(s) Alprazolam 20160 Yes 2 mg = 1 [facility] 2 MG Oral 07 tab, PO, l Tablet 16:37: TID, 0 [place] [Xanax] 00 Refill(s) Alprazolam 20160 Yes 2 [...] TID, 0 [place] [Xanax] 00 Refill(s) Alprazolam 20150 Yes 2 mg = 1 [facility] 2 MG Oral 1-07 tab, PO, l Tablet 16:37: TID, 0 [place] [Xanax] 00 Refill(s) Alprazolam 20160 Yes 2 mg = 1 [facility] 2 MG Oral -07 tab, PO, l Tablet 16:37: TID, 0 [place] [Xanax] 00 Refill(s) Alprazolam 20160 Yes 2 mg = 1 [facility] 2 MG Oral -07 tab, PO, l Tablet 16:37: TID, 0 [place] [Xanax] 00 Refill(s) Alprazolam 20160 Yes 2 mg = 1 [facility] 2 MG Oral -07 tab, PO, l Tablet 16:37: TID, 0 [place] [Xanax] 00 Refill(s) Alprazolam 2016 Yes 2 [...] tab, PO, l Tablet 16:37: TID, 0 [place] [Xanax] 00 Refill(s) Alprazolam 2016 Yes 2 [...] tab, PO, l Tablet 16:37: TID, 0 [place] [Xanax] 00 Refill(s) Alprazolam 2016 Yes 2 mg = 1 [facility] 2 MG Oral -07 tab, PO, l Tablet 16:37: TID, 0 [place] [Xanax] 00 Refill(s) Alprazolam Yes 2 mg = 1 [facility] 2 MG Oral -07 tab, PO, l Tablet 16:37: TID, 0 [place] [Xanax] 00 Refill(s) Alprazolam Yes 2 mg = 1 [facility] 2 MG Oral -07 tab, PO, l Tablet 16:37: TID, 0 [place] [Xanax] 00 Refill(s) Alprazolam 2016 Yes 2 mg = 1 [facility] 2 MG Oral 11-07 tab, PO, l Tablet 16:37: TID, 0 [place] [Xanax] 00 Refill(s) Alprazolam 20160 Yes 2 mg = 1 [facility] 2 MG Oral -07 tab, PO, l Tablet 16:37: TID, 0 [place] [Xanax] 00 Refill(s) Alprazolam 2016 Yes 2 mg = 1 [facility] 2 MG Oral -07 tab, PO, l Tablet 16:37: TID, 0 [place] [Xanax] 00 Refill(s) Alprazolam 20160 Yes 2 mg = 1 [facility] 2 MG Oral -07 tab, PO, l Tablet 16:37: TID, 0 [place] [Xanax] 00 Refill(s) Alprazolam 0 Yes 2 mg = 1 [facility] 2 MG Oral -07 tab, PO, l Tablet 16:37: TID, 0 [place] [Xanax] 00 Refill(s) Alprazolam Yes 2 mg = 1 [facility] 2 MG Oral -07 tab, PO, l Tablet 16:37: TID, 0 [place] [Xanax] 00 Refill(s) Alprazolam 2016-0 Yes 2 mg = 1 [facility] 2 MG Oral 1-07 tab, PO, l Tablet 16:37: TID, 0 [place] [Xanax] 00 Refill(s) Alprazolam 20160 Yes 2 mg = 1 [facility] 2 MG Oral 1-07 tab, PO, l Tablet 16:37: TID, 0 [place] [Xanax] 00 Refill(s) Alprazolam 20160 Yes 2 mg = 1 [facility] 2 MG Oral 1-07 tab, PO, l Tablet 16:37: TID, 0 [place] [Xanax] 00 Refill(s) Alprazolam 20160 Yes 2 mg = 1 [facility] 2 MG Oral 1-07 tab, PO, l Tablet 16:37: TID, 0 [place] [Xanax] 00 Refill(s) Alprazolam 2016 Yes 2 mg = 1 [facility] 2 MG Oral 1-07 tab, PO, l Tablet 16:37: TID, 0 [place] [Xanax] 00 Refill(s) Alprazolam 0 Yes 2 [...] tab, PO, l Tablet 16:37: TID, 0 [place] [Xanax] 00 Refill(s) Alprazolam 20160 Yes 2 mg = 1 [facility] 2 MG Oral 1-07 tab, PO, l Tablet 16:37: TID, 0 [place] [Xanax] 00 Refill(s) Alprazolam 20160 Yes 2 mg = 1 [facility] 2 MG Oral 1-07 tab, PO, l Tablet 16:37: TID, 0 [place] [Xanax] 00 Refill(s) Nitroglycer 20160 Yes 0.4 mg = 1 [facility] in [...] 1-07 PRN, 0 l Codeine 16:21: Refill(s) Alexadnria nn 00 Promethazin 2016-0 Yes 5 mL, [...] ermann Bitartrate 00 10 MG Oral Tablet [[place] 10/325] Acetaminoph Yes 1 tab, PO, Memoria en 325 MG / -07 BID, 0 l Hydrocodone 16:19: Refill(s) H [place] Bitartrate 00 10 MG Oral Tablet [[place] 10/325] Acetaminoph Yes 1 tab, PO, Memoria en 325 MG / -07 BID, 0 l Hydrocodone 16:19: Refill(s) H [place] Bitartrate 00 10 MG Oral Tablet [[place] 10/325] Acetaminoph Yes 1 tab, PO, Mem[facility] en 325 MG / 1-07 BID, 0 l Hydrocodone 16:19: Refill(s) H [place] Bitartrate 00 10 MG Oral Tablet [[place] 10/325] Acetaminoph Yes 1 tab, PO, Memoria en 325 MG / -07 BID, 0 l Hydrocodone 16:19: Refill(s) H [place] Bitartrate 00 10 MG Oral Tablet [[place] 10/325] Acetaminoph Yes 1 tab, PO, Memoria en 325 MG / 1-07 BID, 0 l Hydrocodone 16:19: Refill(s) H [place] Bitartrate 00 10 MG Oral Tablet [[place] 10/325] Acetaminoph Yes 1 tab, PO, Memoria en 325 MG / 1-07 BID, 0 l Hydrocodone 16:19: Refill(s) H [place] Bitartrate 00 10 MG Oral Tablet [[place] 10/325] Acetaminoph Yes 1 tab, PO, Memoria en 325 MG / 1-07 BID, 0 l Hydrocodone 16:19: Refill(s) H [place] Bitartrate 00 10 MG Oral Tablet [[place] 10/325] Acetaminoph Yes 1 tab, PO, Memoria en 325 MG / 1-07 BID, 0 l Hydrocodone 16:19: Refill(s) H [place] Bitartrate 00 10 MG Oral Tablet [[place] 10/325] Acetaminoph Yes 1 tab, PO, Memoria en 325 MG / 1-07 BID, 0 l Hydrocodone 16:19: Refill(s) H [place] Bitartrate 00 10 MG Oral Tablet [[place] 10/325] Acetaminoph Yes 1 tab, PO, Memoria en 325 MG / 1-07 BID, 0 l Hydrocodone 16:19: Refill(s) H ermann Bitartrate 00 10 MG Oral Tablet [[place] 10/325] Acetaminoph Yes 1 tab, PO, Memoria en 325 MG / 1-07 BID, 0 l Hydrocodone 16:19: Refill(s) H ermann Bitartrate 00 10 MG Oral Tablet [[place] 10/325] Acetaminoph Yes 1 tab, PO, Memoria en 325 MG / 1-07 BID, 0 l Hydrocodone 16:19: Refill(s) H ermann Bitartrate 00 10 MG Oral Tablet [[place] 10/325] Acetaminoph Yes 1 tab, PO, Memoria en 325 MG / 1-07 BID, 0 l Hydrocodone 16:19: Refill(s) H [place] Bitartrate 00 10 MG Oral Tablet [[place] 10/325] Acetaminoph Yes 1 tab, PO, Memoria en 325 MG / 1-07 BID, 0 l Hydrocodone 16:19: Refill(s) H [place] Bitartrate 00 10 MG Oral Tablet [[place] 10/325] Acetaminoph Yes 1 tab, PO, Memoria en 325 MG / 1-07 BID, 0 l Hydrocodone 16:19: Refill(s) H ermann Bitartrate 00 10 MG Oral Tablet [[place] 10/325] Acetaminoph Yes 1 tab, PO, Memoria en 325 MG / 1-07 BID, 0 l Hydrocodone 16:19: Refill(s) H ermann Bitartrate 00 10 MG Oral Tablet [[place] 10/325] Acetaminoph Yes 1 tab, PO, Memoria en 325 MG / 1-07 BID, 0 l Hydrocodone 16:19: Refill(s) H [place] Bitartrate 00 10 MG Oral Tablet [[place] 10/325] Acetaminoph Yes 1 tab, PO, Memoria en 325 MG / 1-07 BID, 0 l Hydrocodone 16:19: Refill(s) H ermann Bitartrate 00 10 MG Oral Tablet [[place] 10/325] Acetaminoph Yes 1 tab, PO, Memoria en 325 MG / 1-07 BID, 0 l Hydrocodone 16:19: Refill(s) H [place] Bitartrate 00 10 MG Oral Tablet [[place] 10/325] Acetaminoph Yes 1 tab, PO, Memoria en 325 MG / 1-07 BID, 0 l Hydrocodone 16:19: Refill(s) H [place] Bitartrate 00 10 MG Oral Tablet [[place] 10/325] Acetaminoph Yes 1 tab, PO, Memoria en 325 MG / 1-07 BID, 0 l Hydrocodone 16:19: Refill(s) H [place] Bitartrate 00 10 MG Oral Tablet [[place] 10/325] Acetaminoph Yes 1 tab, PO, Memoria en 325 MG / 1-07 BID, 0 l Hydrocodone 16:19: Refill(s) H [place] Bitartrate 00 10 MG Oral Tablet [[place] 10/325] Acetaminoph Yes 1 tab, PO, Memoria en 325 MG / 1-07 BID, 0 l Hydrocodone 16:19: Refill(s) H [place] Bitartrate 00 10 MG Oral Tablet [[place] 10/325] Acetaminoph Yes 1 tab, PO, Memoria en 325 MG / 1-07 BID, 0 l Hydrocodone 16:19: Refill(s) H [place] Bitartrate 00 10 MG Oral Tablet [[place] 10/325] Acetaminoph Yes 1 tab, PO, Memoria en 325 MG / 1-07 BID, 0 l Hydrocodone 16:19: Refill(s) H [place] Bitartrate 00 10 MG Oral Tablet [[place] 10/325] Acetaminoph Yes 1 tab, PO, Memoria en 325 MG / 1-07 BID, 0 l Hydrocodone 16:19: Refill(s) H [place] Bitartrate 00 10 MG Oral Tablet [[place] 10/325] Acetaminoph Yes 1 tab, PO, Memoria en 325 MG / 1-07 BID, 0 l Hydrocodone 16:19: Refill(s) H [place] Bitartrate 00 10 MG Oral Tablet [[place] 10/325] Acetaminoph Yes 1 tab, PO, Memoria en 325 MG / 1-07 BID, 0 l Hydrocodone 16:19: Refill(s) H [place] Bitartrate 00 10 MG Oral Tablet [[place] 10/325] Acetaminoph Yes 1 tab, PO, Memoria en 325 MG / 1-07 BID, 0 l Hydrocodone 16:19: Refill(s) H [place] Bitartrate 00 10 MG Oral Tablet [[place] 10/325] Acetaminoph Yes 1 tab, PO, Memoria en 325 MG / 1-07 BID, 0 l Hydrocodone 16:19: Refill(s) H [place] Bitartrate 00 10 MG Oral Tablet [[place] 10/325] Acetaminoph Yes 1 tab, PO, Memoria en 325 MG / 1-07 BID, 0 l Hydrocodone 16:19: Refill(s) H [place] Bitartrate 00 10 MG Oral Tablet [[place] 10/325] Acetaminoph Yes 1 tab, PO, Memoria en 325 MG / 1-07 BID, 0 l Hydrocodone 16:19: Refill(s) [facility] Bitartrate 00 10 MG Oral Tablet [[place] 10/325] Acetaminoph Yes 1 tab, PO, Memoria en 325 MG / 1-07 BID, 0 l Hydrocodone 16:19: Refill(s) [facility] Bitartrate 00 10 MG Oral Tablet [[place] 10/325] Acetaminoph Yes 1 tab, PO, Memoria en 325 MG / 1-07 BID, 0 l Hydrocodone 16:19: Refill(s) [facility] Bitartrate 00 10 MG Oral Tablet [[place] 10/325] Acetaminoph Yes 1 tab, PO, Memoria en 325 MG / 1-07 BID, 0 l Hydrocodone 16:19: Refill(s) [facility] Bitartrate 00 10 MG Oral Tablet [[place] 10/325] Acetaminoph Yes 1 tab, PO, Memoria en 325 MG / 1-07 BID, 0 l Hydrocodone 16:19: Refill(s) [facility] Bitartrate 00 10 MG Oral Tablet [[place] 10/325] Acetaminoph Yes 1 tab, PO, Memoria en 325 MG / 1-07 BID, 0 l Hydrocodone 16:19: Refill(s) [facility] Bitartrate 00 10 MG Oral Tablet [[place] 10/325] Acetaminoph Yes 1 tab, PO, Memoria en 325 MG / 1-07 BID, 0 l Hydrocodone 16:19: Refill(s) [facility] Bitartrate 00 10 MG Oral Tablet [[place] 10/325] Acetaminoph Yes 1 tab, PO, Memoria en 325 MG / 1-07 BID, 0 l Hydrocodone 16:19: Refill(s) [facility] Bitartrate 00 10 MG Oral Tablet [[place] 10/325] Acetaminoph Yes 1 tab, PO, Memoria en 325 MG / 1-07 BID, 0 l Hydrocodone 16:19: Refill(s) [facility] Bitartrate 00 10 MG Oral Tablet [[place] 10/325] Acetaminoph Yes 1 tab, PO, Memoria en 325 MG / 1-07 BID, 0 l Hydrocodone 16:19: Refill(s) [facility] Bitartrate 00 10 MG Oral Tablet [[place] 10/325] Acetaminoph Yes 1 tab, PO, Memoria en 325 MG / 1-07 BID, 0 l Hydrocodone 16:19: Refill(s) [facility] Bitartrate 00 10 MG Oral Tablet [[place] 10/325] Acetaminoph Yes 1 tab, PO, Memoria en 325 MG / 1-07 BID, 0 l Hydrocodone 16:19: Refill(s) [facility] Bitartrate 00 10 MG Oral Tablet [[place] 10/325] Acetaminoph Yes 1 tab, PO, Memoria en 325 MG / 1-07 BID, 0 l Hydrocodone 16:19: Refill(s) [facility] Bitartrate 00 10 MG Oral Tablet [[place] 10/325] Acetaminoph Yes 1 tab, PO, Memoria en 325 MG / 1-07 BID, 0 l Hydrocodone 16:19: Refill(s) [facility] Bitartrate 00 10 MG Oral Tablet [[place] 10/325] Acetaminoph Yes 1 tab, PO, Memoria en 325 MG / 1-07 BID, 0 l Hydrocodone 16:19: Refill(s) [facility] Bitartrate 00 10 MG Oral Tablet [[place] 10/325] Acetaminoph Yes 1 tab, PO, Memoria en 325 MG / 1-07 BID, 0 l Hydrocodone 16:19: Refill(s) [facility] Bitartrate 00 10 MG Oral Tablet [[place] 10/325] Acetaminoph Yes 1 tab, PO, Memoria en 325 MG / 1-07 BID, 0 l Hydrocodone 16:19: Refill(s) [facility] Bitartrate 00 10 MG Oral Tablet [[place] 10/325] Acetaminoph Yes 1 tab, PO, Memoria en 325 MG / 1-07 BID, 0 l Hydrocodone 16:19: Refill(s) [facility] Bitartrate 00 10 MG Oral Tablet [[place] 10/325] Acetaminoph Yes 1 tab, PO, Memoria en 325 MG / 1-07 BID, 0 l Hydrocodone 16:19: Refill(s) [facility] Bitartrate 00 10 MG Oral Tablet [[place] 10/325] Acetaminoph Yes 1 tab, PO, Memoria en 325 MG / 1-07 BID, 0 l Hydrocodone 16:19: Refill(s) [facility] Bitartrate 00 10 MG Oral Tablet [[place] 10/325] Acetaminoph Yes 1 tab, PO, Memoria en 325 MG / 1-07 BID, 0 l Hydrocodone 16:19: Refill(s) [facility] Bitartrate 00 10 MG Oral Tablet [[place] 10/325] Acetaminoph Yes 1 tab, PO, Memoria en 325 MG / 1-07 BID, 0 l Hydrocodone 16:19: Refill(s) [facility] Bitartrate 00 10 MG Oral Tablet [[place] 10/325] Acetaminoph Yes 1 tab, PO, Memoria en 325 MG / 1-07 BID, 0 l Hydrocodone 16:19: Refill(s) [facility] Bitartrate 00 10 MG Oral Tablet [[place] 10/325] Acetaminoph Yes 1 tab, PO, Memoria en 325 MG / 1-07 BID, 0 l Hydrocodone 16:19: Refill(s) [facility] Bitartrate 00 10 MG Oral Tablet [[place] 10/325] Acetaminoph Yes 1 tab, PO, Memoria en 325 MG / 1-07 BID, 0 l Hydrocodone 16:19: Refill(s) [facility] Bitartrate 00 10 MG Oral Tablet [[place] 10/325] Acetaminoph Yes 1 tab, PO, Memoria en 325 MG / 1-07 BID, 0 l Hydrocodone 16:19: Refill(s) [facility] Bitartrate 00 10 MG Oral Tablet [[place] 10/325] Acetaminoph Yes 1 tab, PO, Memoria en 325 MG / 1-07 BID, 0 l Hydrocodone 16:19: Refill(s) H ermann Bitartrate 00 10 MG Oral Tablet [[place] 10/325] Acetaminoph Yes 1 tab, PO, Memoria en 325 MG / 1-07 BID, 0 l Hydrocodone 16:19: Refill(s) H ermann Bitartrate 00 10 MG Oral Tablet [[place] 10/325] Acetaminoph Yes 1 tab, PO, Memoria en 325 MG / 1-07 BID, 0 l Hydrocodone 16:19: Refill(s) H ermann Bitartrate 00 10 MG Oral Tablet [[place] 10/325] Acetaminoph Yes 1 tab, PO, Memoria en 325 MG / 1-07 BID, 0 l Hydrocodone 16:19: Refill(s) H ermann Bitartrate 00 10 MG Oral Tablet [[place] 10/325] Acetaminoph Yes 1 tab, PO, Memoria en 325 MG / 1-07 BID, 0 l Hydrocodone 16:19: Refill(s) H ermann Bitartrate 00 10 MG Oral Tablet [[place] 10/325] Acetaminoph Yes 1 tab, PO, Memoria en 325 MG / 1-07 BID, 0 l Hydrocodone 16:19: Refill(s) H ermann Bitartrate 00 10 MG Oral Tablet [[place] 10/325] Acetaminoph Yes 1 tab, PO, Memoria en 325 MG / 1-07 BID, 0 l Hydrocodone 16:19: Refill(s) H ermann Bitartrate 00 10 MG Oral Tablet [[place] 10/325] Acetaminoph Yes 1 tab, PO, Memoria en 325 MG / 1-07 BID, 0 l Hydrocodone 16:19: Refill(s) H ermann Bitartrate 00 10 MG Oral Tablet [[place] 10/325] Acetaminoph Yes 1 tab, PO, Memoria en 325 MG / 1-07 BID, 0 l Hydrocodone 16:19: Refill(s) H ermann Bitartrate 00 10 MG Oral Tablet [[place] 10/325] Acetaminoph Yes 1 tab, PO, Memoria en 325 MG / 1-07 BID, 0 l Hydrocodone 16:19: Refill(s) H ermann Bitartrate 00 10 MG Oral Tablet [[place] 10/325] Acetaminoph Yes 1 tab, PO, Memoria en 325 MG / 1-07 BID, 0 l Hydrocodone 16:19: Refill(s) H ermann Bitartrate 00 10 MG Oral Tablet [[place] 10/325] Acetaminoph Yes 1 tab, PO, Memoria en 325 MG / 1-07 BID, 0 l Hydrocodone 16:19: Refill(s) H ermann Bitartrate 00 10 MG Oral Tablet [[place] 10/325] Acetaminoph Yes 1 tab, PO, Memoria en 325 MG / 1-07 BID, 0 l Hydrocodone 16:19: Refill(s) H ermann Bitartrate 00 10 MG Oral Tablet [[place] 10/325] Acetaminoph Yes 1 tab, PO, Memoria en 325 MG / 11-07 BID, 0 l Hydrocodone 16:19: Refill(s) H ermann Bitartrate 00 10 MG Oral Tablet [[place] 10/325] Acetaminoph Yes 1 tab, PO, Memoria en 325 MG / -07 BID, 0 l Hydrocodone 16:19: Refill(s) H ermann Bitartrate 00 10 MG Oral Tablet [[place] 10/325] Acetaminoph Yes 1 tab, PO, Memoria en 325 MG / 11-07 BID, 0 l Hydrocodone 16:19: Refill(s) H ermann Bitartrate 00 10 MG Oral Tablet [[place] 10/325] Acetaminoph Yes 1 tab, PO, Memoria en 325 MG / 11-07 BID, 0 l Hydrocodone 16:19: Refill(s) H ermann Bitartrate 00 10 MG Oral Tablet [[place] 10/325] Acetaminoph Yes 1 tab, PO, Memoria en 325 MG / 11-07 BID, 0 l Hydrocodone 16:19: Refill(s) H ermann Bitartrate 00 10 MG Oral Tablet [[place] 10/325] Acetaminoph Yes 1 tab, PO, Memoria en 325 MG / 11-07 BID, 0 l Hydrocodone 16:19: Refill(s) H ermann Bitartrate 00 10 MG Oral Tablet [[place] 10/325] Acetaminoph Yes 1 tab, PO, Memoria en 325 MG / 11-07 BID, 0 l Hydrocodone 16:19: Refill(s) H ermann Bitartrate 00 10 MG Oral Tablet [[place] 10/325] tizanidine Yes 4 mg = 1 Mem oria 4 MG Oral 11-07 cap, PO, l Capsule 16:18: BID, # 90 [place] nn [Zanaflex] 00 cap, 0 Refill(s) Zolpidem Yes 5 mg = 1 Memor ia tartrate 5 07 tab, PO, l MG Oral 16:18: Bedtime, [...] l MG Oral 16:18: Bedtime, 0 Herm falkita Tablet 00 Refill(s) [Ambien] tizanidine 2016-0 Yes [...] PO, l Capsule 16:18: BID, # 90 [place] nn [Zanaflex] 00 cap, 0 Refill(s) Zolpidem [...] cap, PO, l capsule 16:17: BID, 0 [place] 00 Refill(s) cephalexin 2016-0 Yes 500 mg = 1 M emoria 500 mg oral 1-07 cap, PO, l capsule 16:17: BID, 0 [place] 00 Refill(s) cephalexin 2016-0 Yes 500 mg = 1 M emoria 500 mg oral 1-07 cap, PO, l capsule 16:17: BID, 0 [place] 00 Refill(s) cephalexin 2016-0 Yes 500 mg [...] cap, PO, l capsule 16:17: BID, 0 [place] 00 Refill(s) cephalexin 2016-0 Yes 500 mg = 1 M emoria 500 mg oral 1-07 cap, PO, l capsule 16:17: BID, 0 [place] 00 Refill(s) cephalexin 2016-0 Yes 500 mg = 1 M emoria 500 mg oral 1-07 cap, PO, l capsule 16:17: BID, 0 [place] 00 Refill(s) cephalexin 2016-0 Yes 500 mg = 1 M emoria 500 mg oral 1-07 cap, PO, l capsule 16:17: BID, 0 [place] 00 Refill(s) cephalexin 2016-0 Yes 500 mg = 1 M emoria 500 mg oral 1-07 cap, PO, l capsule 16:17: BID, 0 [place] 00 Refill(s) cephalexin 2016-0 Yes 500 mg = 1 M emoria 500 mg oral 1-07 cap, PO, l capsule 16:17: BID, 0 [place] 00 Refill(s) cephalexin 2016-0 Yes 500 mg = 1 M emoria 500 mg oral 1-07 cap, PO, l capsule 16:17: BID, 0 [place] 00 Refill(s) cephalexin 2016-0 Yes 500 mg = 1 M emoria 500 mg oral 1-07 cap, PO, l capsule 16:17: BID, 0 [place] 00 Refill(s) cephalexin 2016-0 Yes 500 mg = 1 M emoria 500 mg oral 1-07 cap, PO, l capsule 16:17: BID, 0 [place] 00 Refill(s) cephalexin 2016-0 Yes 500 mg = 1 M emoria 500 mg oral 1-07 cap, PO, l capsule 16:17: BID, 0 [place] 00 Refill(s) cephalexin 2016-0 Yes 500 mg [...] cap, PO, l capsule 16:17: BID, 0 [place] 00 Refill(s) cephalexin 2016-0 Yes 500 mg [...] cap, PO, l capsule 16:17: BID, 0 [place] 00 Refill(s) cephalexin 2016-0 Yes 500 mg = 1 M emoria 500 mg oral 1-07 cap, PO, l capsule 16:17: BID, 0 [place] 00 Refill(s) cephalexin 2016-0 Yes 500 mg = 1 M emoria 500 mg oral 1-07 cap, PO, l capsule 16:17: BID, 0 [place] 00 Refill(s) cephalexin 2016-0 Yes 500 mg [...] cap, PO, l capsule 16:17: BID, 0 [place] 00 Refill(s) cephalexin 2016-0 Yes 500 mg [...] cap, PO, l capsule 16:17: BID, 0 [place] 00 Refill(s) cephalexin 2016-0 Yes 500 mg = 1 M emoria 500 mg oral 1-07 cap, PO, l capsule 16:17: BID, 0 [place] 00 Refill(s) cephalexin 2016-0 Yes 500 mg [...] cap, PO, l capsule 16:17: BID, 0 [place] 00 Refill(s) cephalexin 2016-0 Yes 500 mg = 1 M emoria 500 mg oral 1-07 cap, PO, l capsule 16:17: BID, 0 [place] 00 Refill(s) cephalexin 2016-0 Yes 500 mg [...] cap, PO, l capsule 16:17: BID, 0 [place] 00 Refill(s) cephalexin 2016-0 Yes 500 mg = 1 M emoria 500 mg oral 1-07 cap, PO, l capsule 16:17: BID, 0 [place] 00 Refill(s) cephalexin 2016-0 Yes 500 mg [...] cap, PO, l capsule 16:17: BID, 0 [place] 00 Refill(s) cephalexin 2015-0 Yes 500 mg = 1 M emoria 500 mg oral 1-07 cap, PO, l capsule 16:17: BID, 0 [place] 00 Refill(s) cephalexin 2015-0 Yes 500 mg = 1 M emoria 500 mg oral 1-07 cap, PO, l capsule 16:17: BID, 0 [place] 00 Refill(s) cephalexin 2015-0 Yes 500 mg = 1 M emoria 500 mg oral 1-07 cap, PO, l capsule 16:17: BID, 0 [place] 00 Refill(s) cephalexin 2015-0 Yes 500 mg [...] cap, PO, l capsule 16:17: BID, 0 [place] 00 Refill(s) cephalexin 2016-0 Yes 500 mg = 1 M emoria 500 mg oral 1-07 cap, PO, l capsule 16:17: BID, 0 [place] 00 Refill(s) cephalexin 2016-0 Yes 500 mg = 1 M emoria 500 mg oral 1-07 cap, PO, l capsule 16:17: BID, 0 [place] 00 Refill(s) cephalexin 2016-0 Yes 500 mg = 1 M emoria 500 mg oral 1-07 cap, PO, l capsule 16:17: BID, 0 [place] 00 Refill(s) cephalexin 2016-0 Yes 500 mg = 1 M emoria 500 mg oral 1-07 cap, PO, l capsule 16:17: BID, 0 [place] 00 Refill(s) cephalexin 2016-0 Yes 500 mg = 1 M emoria 500 mg oral 1-07 cap, PO, l capsule 16:17: BID, 0 [place] 00 Refill(s) cephalexin 2016-0 Yes 500 mg = 1 M emoria 500 mg oral 1-07 cap, PO, l capsule 16:17: BID, 0 [place] 00 Refill(s) cephalexin 2016-0 Yes 500 mg = 1 M emoria 500 mg oral 1-07 cap, PO, l capsule 16:17: BID, 0 [place] 00 Refill(s) cephalexin 2016-0 Yes 500 mg = 1 M emoria 500 mg oral 1-07 cap, PO, l capsule 16:17: BID, 0 [place] 00 Refill(s) cephalexin 2016-0 Yes 500 mg = 1 M emoria 500 mg oral 1-07 cap, PO, l capsule 16:17: BID, 0 [place] 00 Refill(s) cephalexin 2016-0 Yes 500 mg = 1 M emoria 500 mg oral 1-07 cap, PO, l capsule 16:17: BID, 0 [place] 00 Refill(s) cephalexin 2016-0 Yes 500 mg = 1 M emoria 500 mg oral 1-07 cap, PO, l capsule 16:17: BID, 0 [place] 00 Refill(s) cephalexin 2016-0 Yes 500 mg [...] cap, PO, l capsule 16:17: BID, 0 [place] 00 Refill(s) cephalexin 2016-0 Yes 500 mg = 1 M emoria 500 mg oral 1-07 cap, PO, l capsule 16:17: BID, 0 [place] 00 Refill(s) cephalexin 2016-0 Yes 500 mg = 1 M emoria 500 mg oral 1-07 cap, PO, l capsule 16:17: BID, 0 [place] 00 Refill(s) cephalexin 2016-0 Yes 500 mg = 1 M emoria 500 mg oral 1-07 cap, PO, l capsule 16:17: BID, 0 [place] 00 Refill(s) cephalexin 2016-0 Yes 500 mg = 1 M emoria 500 mg oral 1-07 cap, PO, l capsule 16:17: BID, 0 [place] 00 Refill(s) cephalexin 2016-0 Yes 500 mg = 1 M emoria 500 mg oral 1-07 cap, PO, l capsule 16:17: BID, 0 [place] 00 Refill(s) cephalexin 2016-0 Yes 500 mg = 1 M emoria 500 mg oral 1-07 cap, PO, l capsule 16:17: BID, 0 [place] 00 Refill(s) cephalexin 2016-0 Yes 500 mg = 1 M emoria 500 mg oral 1-07 cap, PO, l capsule 16:17: BID, 0 [place] 00 Refill(s) cephalexin 2016-0 Yes 500 mg = 1 M emoria 500 mg oral 1-07 cap, PO, l capsule 16:17: BID, 0 [place] 00 Refill(s) cephalexin 2016-0 Yes 500 mg = 1 M emoria 500 mg oral 1-07 cap, PO, l capsule 16:17: BID, 0 [place] 00 Refill(s) cephalexin 2016-0 Yes 500 mg = 1 M emoria 500 mg oral 1-07 cap, PO, l capsule 16:17: BID, 0 [place] 00 Refill(s) duloxetine 2016-0 Yes 60 mg = 1 Me moria 60 MG 1-07 cap, PO, l Enteric 16:16: Daily, 0 [place] 00 Refill(s) Capsule [Cymbalta] atorvastati Yes 40 mg = 1 M emoria n 40 MG 1-07 tab, PO, l Oral Tablet 16:16: Bedtime, 0 [place] [Lipitor] 00 Refill(s) duloxetine 2016 Yes 60 mg = 1 Me moria 60 MG 1-07 cap, PO, l Enteric 16:16: Daily, 0 [place] 00 Refill(s) Capsule [Cymbalta] atorvastati Yes 40 mg = 1 M emoria n 40 MG 1-07 tab, PO, l Oral Tablet 16:16: Bedtime, 0 [place] [Lipitor] 00 Refill(s) duloxetine Yes 60 mg = 1 Me moria 60 MG 1-07 cap, PO, l Enteric 16:16: Daily, 0 [place] 00 Refill(s) Capsule [Cymbalta] atorvastati Yes 40 mg = 1 M emoria n 40 MG 1-07 tab, PO, l Oral Tablet 16:16: Bedtime, 0 [place] [Lipitor] 00 Refill(s) duloxetine Yes 60 mg [...] PO, l Oral Tablet 16:16: Bedtime, 0 [place] [Lipitor] 00 Refill(s) duloxetine Yes 60 mg = 1 Me moria 60 MG 1-07 cap, PO, l Enteric 16:16: Daily, 0 [place] 00 Refill(s) Capsule [Cymbalta] atorvastati Yes 40 mg = 1 M emoria n 40 MG 1-07 tab, PO, l Oral Tablet 16:16: Bedtime, 0 [place] [Lipitor] 00 Refill(s) duloxetine Yes 60 mg [...] PO, l Oral Tablet 16:16: Bedtime, 0 [place] [Lipitor] 00 Refill(s) duloxetine Yes 60 mg = 1 Me moria 60 MG 1-07 cap, PO, l Enteric 16:16: Daily, 0 [place] 00 Refill(s) Capsule [Cymbalta] atorvastati Yes 40 mg = 1 M emoria n 40 MG 1-07 tab, PO, l Oral Tablet 16:16: Bedtime, 0 [place] [Lipitor] 00 Refill(s) duloxetine Yes 60 mg = 1 Me moria 60 MG 1-07 cap, PO, l Enteric 16:16: Daily, 0 [place] 00 Refill(s) Capsule [Cymbalta] atorvastati Yes 40 mg = 1 M emoria n 40 MG 1-07 tab, PO, l Oral Tablet 16:16: Bedtime, 0 [place] [Lipitor] 00 Refill(s) duloxetine Yes 60 mg = 1 Me moria 60 MG 1-07 cap, PO, l Enteric 16:16: Daily, 0 [place] 00 Refill(s) Capsule [Cymbalta] atorvastati Yes 40 mg = 1 M emoria n 40 MG 1-07 tab, PO, l Oral Tablet 16:16: Bedtime, 0 [place] [Lipitor] 00 Refill(s) duloxetine Yes 60 mg [...] PO, l Oral Tablet 16:16: Bedtime, 0 [place] [Lipitor] 00 Refill(s) duloxetine Yes 60 mg [...] PO, l Oral Tablet 16:16: Bedtime, 0 [place] [Lipitor] 00 Refill(s) duloxetine Yes 60 mg [...] PO, l Oral Tablet 16:16: Bedtime, 0 [place] [Lipitor] 00 Refill(s) duloxetine Yes 60 mg [...] PO, l Oral Tablet 16:16: Bedtime, 0 [place] [Lipitor] 00 Refill(s) duloxetine Yes 60 mg [...] PO, l Oral Tablet 16:16: Bedtime, 0 [place] [Lipitor] 00 Refill(s) duloxetine Yes 60 mg [...] PO, l Oral Tablet 16:16: Bedtime, 0 [place] [Lipitor] 00 Refill(s) duloxetine Yes 60 mg = 1 Me moria 60 MG 1-07 cap, PO, l Enteric 16:16: Daily, 0 [place] Co[place] 00 Refill(s) Capsule [Cymbalta] atorvastati Yes 40 mg = 1 M emoria n 40 MG 1-07 tab, PO, l Oral Tablet 16:16: Bedtime, 0 [place] [Lipitor] 00 Refill(s) duloxetine 2016 Yes 60 mg = 1 Me moria 60 MG 1-07 cap, PO, l Enteric 16:16: Daily, 0 [place] Co[place] 00 Refill(s) Capsule [Cymbalta] atorvastati Yes 40 mg = 1 M emoria n 40 MG 1-07 tab, PO, l Oral Tablet 16:16: Bedtime, 0 [place] [Lipitor] 00 Refill(s) duloxetine Yes 60 mg [...] PO, l Oral Tablet 16:16: Bedtime, 0 [place] [Lipitor] 00 Refill(s) duloxetine Yes 60 mg = 1 Me moria 60 MG 1-07 cap, PO, l Enteric 16:16: Daily, 0 [place] 00 Refill(s) Capsule [Cymbalta] atorvastati Yes 40 mg = 1 M emoria n 40 MG 1-07 tab, PO, l Oral Tablet 16:16: Bedtime, 0 [place] [Lipitor] 00 Refill(s) duloxetine Yes 60 mg = 1 Me moria 60 MG 1-07 cap, PO, l Enteric 16:16: Daily, 0 [place] 00 Refill(s) Capsule [Cymbalta] atorvastati Yes 40 mg = 1 M emoria n 40 MG 1-07 tab, PO, l Oral Tablet 16:16: Bedtime, 0 [place] [Lipitor] 00 Refill(s) duloxetine Yes 60 mg [...] PO, l Oral Tablet 16:16: Bedtime, 0 [place] [Lipitor] 00 Refill(s) duloxetine Yes 60 mg [...] PO, l Oral Tablet 16:16: Bedtime, 0 [place] [Lipitor] 00 Refill(s) duloxetine Yes 60 mg [...] PO, l Oral Tablet 16:16: Bedtime, 0 [place] [Lipitor] 00 Refill(s) duloxetine Yes 60 mg = 1 Me moria 60 MG 1-07 cap, PO, l Enteric 16:16: Daily, 0 [place] 00 Refill(s) Capsule [Cymbalta] atorvastati Yes 40 mg = 1 M emoria n 40 MG 1-07 tab, PO, l Oral Tablet 16:16: Bedtime, 0 [place] [Lipitor] 00 Refill(s) duloxetine Yes 60 mg = 1 Me moria 60 MG 1-07 cap, PO, l Enteric 16:16: Daily, 0 [place] 00 Refill(s) Capsule [Cymbalta] atorvastati Yes 40 mg = 1 M emoria n 40 MG 1-07 tab, PO, l Oral Tablet 16:16: Bedtime, 0 [place] [Lipitor] 00 Refill(s) duloxetine Yes 60 mg [...] PO, l Oral Tablet 16:16: Bedtime, 0 [place] [Lipitor] 00 Refill(s) duloxetine Yes 60 mg [...] PO, l Oral Tablet 16:16: Bedtime, 0 [place] [Lipitor] 00 Refill(s) duloxetine Yes 60 mg [...] PO, l Oral Tablet 16:16: Bedtime, 0 [place] [Lipitor] 00 Refill(s) duloxetine Yes 60 mg = 1 Me mor[place] 60 MG 1-07 cap, PO, l Enteric 16:16: Daily, 0 [place] 00 Refill(s) Capsule [Cymbalta] atorvastati Yes 40 mg = 1 M emoria n 40 MG 1-07 tab, PO, l Oral Tablet 16:16: Bedtime, 0 [place] [Lipitor] 00 Refill(s) duloxetine Yes 60 mg [...] PO, l Oral Tablet 16:16: Bedtime, 0 [place] [Lipitor] 00 Refill(s) duloxetine Yes 60 mg [...] PO, l Oral Tablet 16:16: Bedtime, 0 [place] [Lipitor] 00 Refill(s) duloxetine Yes 60 mg [...] PO, l Oral Tablet 16:16: Bedtime, 0 [place] [Lipitor] 00 Refill(s) duloxetine 2016 Yes 60 mg = 1 Me mor[place] 60 MG 1-07 cap, PO, l Enteric 16:16: Daily, 0 [place] 00 Refill(s) Capsule [Cymbalta] atorvastati Yes 40 mg = 1 M emoria n 40 MG 1-07 tab, PO, l Oral Tablet 16:16: Bedtime, 0 [place] [Lipitor] 00 Refill(s) duloxetine Yes 60 mg = 1 Me mor[place] 60 MG 1-07 cap, PO, l Enteric 16:16: Daily, 0 [place] 00 Refill(s) Capsule [Cymbalta] atorvastati Yes 40 mg = 1 M emoria n 40 MG 1-07 tab, PO, l Oral Tablet 16:16: Bedtime, 0 [place] [Lipitor] 00 Refill(s) duloxetine Yes 60 mg [...] PO, l Oral Tablet 16:16: Bedtime, 0 [place] [Lipitor] 00 Refill(s) duloxetine Yes 60 mg [...] Bedtime, 0 [place] [Lipitor] 00 Refill(s) promethazin 2015- Yes 25 mg = [...] 1-07 tab, PO, l tablet 16:15: QID-Before [place] nn 00 Meals, 0 Refill(s) promethazin Yes [...] PRN, 0 Herm flak[place] 00 Refill(s) promethazin 2015-0 Yes 25 mg = 1 M emoria e 25 mg 1-07 tab, PO, l oral tablet 16:15: PRN, 0 [place] 00 Refill(s) sucralfate 2015-0 Yes 1 gm = 1 Mem oria 1 g oral 1-07 tab, PO, l tablet 16:15: QID-Before [place] nn 00 Meals, 0 Refill(s) sucralfate 2015-0 Yes 1 [...] 1-07 tab, PO, l tablet 16:15: QID-Before [place] nn 00 Meals, 0 Refill(s) promethazin 2016-0 [...] tab, PO, l Tablet 16:14: PRN, 0 [place] [Colcrys] 00 Refill(s) Colchicine Yes 0.6 mg = 1 M emoria 0.6 MG Oral -07 tab, PO, l Tablet 16:14: PRN, 0 [place] [Colcrys] 00 Refill(s) Colchicine Yes 0.6 mg [...] tab, PO, l Tablet 16:14: PRN, 0 [place] [Colcrys] 00 Refill(s) Colchicine Yes 0.6 mg = 1 M emoria 0.6 MG Oral 1-07 tab, PO, l Tablet 16:14: PRN, 0 [place] [Colcrys] 00 Refill(s) Colchicine Yes 0.6 mg = 1 M emoria 0.6 MG Oral 1-07 tab, PO, l Tablet 16:14: PRN, 0 [place] [Colcrys] 00 Refill(s) Colchicine 2016-0 Yes 0.6 [...] tab, PO, l Tablet 16:14: PRN, 0 [place] [Colcrys] 00 Refill(s) Colchicine 2016-0 Yes 0.6 [...] tab, PO, l Tablet 16:14: PRN, 0 [place] [Colcrys] 00 Refill(s) Colchicine 2016-0 Yes 0.6 mg = 1 M emoria 0.6 MG Oral 1-07 tab, PO, l Tablet 16:14: PRN, 0 [place] [Colcrys] 00 Refill(s) Colchicine 2016-0 Yes 0.6 mg = 1 M emoria 0.6 MG Oral 1-07 tab, PO, l Tablet 16:14: PRN, 0 [place] [Colcrys] 00 Refill(s) Colchicine 2016-0 Yes 0.6 mg = 1 M emoria 0.6 MG Oral 1-07 tab, PO, l Tablet 16:14: PRN, 0 [place] [Colcrys] 00 Refill(s) Colchicine 2016-0 Yes 0.6 mg = 1 M emoria 0.6 MG Oral 1-07 tab, PO, l Tablet 16:14: PRN, 0 [place] [Colcrys] 00 Refill(s) Colchicine 2016-0 Yes 0.6 mg = 1 M emoria 0.6 MG Oral 1-07 tab, PO, l Tablet 16:14: PRN, 0 [place] [Colcrys] 00 Refill(s) Colchicine 2016-0 Yes 0.6 mg = 1 M emoria 0.6 MG Oral 1-07 tab, PO, l Tablet 16:14: PRN, 0 [place] [Colcrys] 00 Refill(s) Colchicine 2016-0 Yes 0.6 [...] tab, PO, l Tablet 16:14: PRN, 0 [place] [Colcrys] 00 Refill(s) Colchicine 2016-0 Yes 0.6 [...] tab, PO, l Tablet 16:14: PRN, 0 [place] [Colcrys] 00 Refill(s) Colchicine 2016-0 Yes 0.6 [...] tab, PO, l Tablet 16:14: PRN, 0 [place] [Colcrys] 00 Refill(s) Colchicine 2016-0 Yes 0.6 mg = 1 M emoria 0.6 MG Oral 1-07 tab, PO, l Tablet 16:14: PRN, 0 [place] [Colcrys] 00 Refill(s) Colchicine 2016-0 Yes 0.6 [...] tab, PO, l Tablet 16:14: PRN, 0 [place] [Colcrys] 00 Refill(s) Colchicine 2016-0 Yes 0.6 mg = 1 M emoria 0.6 MG Oral 1-07 tab, PO, l Tablet 16:14: PRN, 0 [place] [Colcrys] 00 Refill(s) Colchicine 2016-0 Yes 0.6 mg = 1 M emoria 0.6 MG Oral 1-07 tab, PO, l Tablet 16:14: PRN, 0 [place] [Colcrys] 00 Refill(s) Colchicine 2016-0 Yes 0.6 mg = 1 M emoria 0.6 MG Oral 1-07 tab, PO, l Tablet 16:14: PRN, 0 [place] [Colcrys] 00 Refill(s) Colchicine 2016-0 Yes 0.6 mg = 1 M emoria 0.6 MG Oral 1-07 tab, PO, l Tablet 16:14: PRN, 0 [place] [Colcrys] 00 Refill(s) Colchicine 2016-0 Yes 0.6 mg = 1 M emoria 0.6 MG Oral 1-07 tab, PO, l Tablet 16:14: PRN, 0 [place] [Colcrys] 00 Refill(s) Colchicine 2016-0 Yes 0.6 mg = 1 M emoria 0.6 MG Oral 1-07 tab, PO, l Tablet 16:14: PRN, 0 [place] [Colcrys] 00 Refill(s) Colchicine 2016-0 Yes 0.6 [...] tab, PO, l Tablet 16:14: PRN, 0 [place] [Colcrys] 00 Refill(s) Colchicine 2016-0 Yes 0.6 mg = 1 M emoria 0.6 MG Oral 1-07 tab, PO, l Tablet 16:14: PRN, 0 [place] [Colcrys] 00 Refill(s) Colchicine 2016-0 Yes 0.6 mg = 1 M emoria 0.6 MG Oral 1-07 tab, PO, l Tablet 16:14: PRN, 0 [place] [Colcrys] 00 Refill(s) Colchicine 2016-0 Yes 0.6 mg = 1 M emoria 0.6 MG Oral 1-07 tab, PO, l Tablet 16:14: PRN, 0 [place] [Colcrys] 00 Refill(s) Colchicine 2016-0 Yes 0.6 [...] tab, PO, l Tablet 16:14: PRN, 0 [place] [Colcrys] 00 Refill(s) Colchicine 2016-0 Yes 0.6 mg = 1 M emoria 0.6 MG Oral 1-07 tab, PO, l Tablet 16:14: PRN, 0 [place] [Colcrys] 00 Refill(s) Colchicine 2016-0 Yes 0.6 mg = 1 M emoria 0.6 MG Oral 1-07 tab, PO, l Tablet 16:14: PRN, 0 [place] [Colcrys] 00 Refill(s) Colchicine 2016-0 Yes 0.6 mg = 1 M emoria 0.6 MG Oral 1-07 tab, PO, l Tablet 16:14: PRN, 0 [place] [Colcrys] 00 Refill(s) Colchicine 2016-0 Yes 0.6 mg = 1 M emoria 0.6 MG Oral 1-07 tab, PO, l Tablet 16:14: PRN, 0 [place] [Colcrys] 00 Refill(s) Colchicine 2016-0 Yes 0.6 [...] tab, PO, l Tablet 16:14: PRN, 0 [place] [Colcrys] 00 Refill(s) Colchicine 2016-0 Yes 0.6 mg = 1 M emoria 0.6 MG Oral 1-07 tab, PO, l Tablet 16:14: PRN, 0 [place] [Colcrys] 00 Refill(s) Colchicine 2016-0 Yes 0.6 mg = 1 M emoria 0.6 MG Oral 1-07 tab, PO, l Tablet 16:14: PRN, 0 [place] [Colcrys] 00 Refill(s) Colchicine 2016-0 Yes 0.6 mg = 1 M emoria 0.6 MG Oral 1-07 tab, PO, l Tablet 16:14: PRN, 0 [place] [Colcrys] 00 Refill(s) Colchicine 2016-0 Yes 0.6 mg = 1 M emoria 0.6 MG Oral 1-07 tab, PO, l Tablet 16:14: PRN, 0 [place] [Colcrys] 00 Refill(s) Colchicine 2016-0 Yes 0.6 [...] tab, PO, l Tablet 16:14: PRN, 0 [place] [Colcrys] 00 Refill(s) Colchicine 2016-0 Yes 0.6 mg = 1 M emoria 0.6 MG Oral 1-07 tab, PO, l Tablet 16:14: PRN, 0 [place] [Colcrys] 00 Refill(s) Colchicine 2016-0 Yes 0.6 mg = 1 M emoria 0.6 MG Oral 1-07 tab, PO, l Tablet 16:14: PRN, 0 [place] [Colcrys] 00 Refill(s) Colchicine 2016-0 Yes 0.6 [...] tab, PO, l tablet 16:13: Daily, 0 [place] 00 Refill(s) allopurinol Yes 300 mg = 1 Memoria 300 mg oral 1-07 tab, PO, l tablet 16:13: Daily, 0 [place] 00 Refill(s) allopurinol Yes 300 mg = 1 [facility] 300 mg oral 1-07 tab, PO, l tablet 16:13: Daily, 0 [place] 00 Refill(s) allopurinol Yes 300 mg = 1 [facility] 300 mg oral 1-07 tab, PO, l tablet 16:13: Daily, 0 [place] 00 Refill(s) allopurinol Yes 300 mg = 1 [facility] 300 mg oral 1-07 tab, PO, l tablet 16:13: Daily, 0 [place] 00 Refill(s) allopurinol Yes 300 mg = 1 [facility] 300 mg oral 1-07 tab, PO, l tablet 16:13: Daily, 0 [place] 00 Refill(s) allopurinol Yes 300 mg = 1 Memoria 300 mg oral 1-07 tab, PO, l tablet 16:13: Daily, 0 [place] 00 Refill(s) allopurinol Yes 300 mg = 1 [facility] 300 mg oral 1-07 tab, PO, l tablet 16:13: Daily, 0 [place] 00 Refill(s) allopurinol Yes 300 mg = 1 [facility] 300 mg oral 1-07 tab, PO, l tablet 16:13: Daily, 0 [place] 00 Refill(s) allopurinol Yes 300 mg = 1 [facility] 300 mg oral 1-07 tab, PO, l tablet 16:13: Daily, 0 [place] 00 Refill(s) allopurinol Yes 300 mg = 1 [facility] 300 mg oral 1-07 tab, PO, l tablet 16:13: Daily, 0 [place] 00 Refill(s) allopurinol Yes 300 mg = 1 [facility] 300 mg oral 1-07 tab, PO, l tablet 16:13: Daily, 0 [place] 00 Refill(s) allopurinol Yes 300 mg = 1 [facility] 300 mg oral 1-07 tab, PO, l tablet 16:13: Daily, 0 [place] 00 Refill(s) allopurinol Yes 300 mg = 1 [facility] 300 mg oral 1-07 tab, PO, l tablet 16:13: Daily, 0 [place] 00 Refill(s) allopurinol Yes 300 mg = 1 [facility] 300 mg oral 1-07 tab, PO, l tablet 16:13: Daily, 0 [place] 00 Refill(s) allopurinol Yes 300 mg = 1 [facility] 300 mg oral 1-07 tab, PO, l tablet 16:13: Daily, 0 [place] 00 Refill(s) allopurinol Yes 300 mg = 1 [facility] 300 mg oral 1-07 tab, PO, l tablet 16:13: Daily, 0 [place] 00 Refill(s) allopurinol Yes 300 mg = 1 [facility] 300 mg oral 1-07 tab, PO, l tablet 16:13: Daily, 0 [place] 00 Refill(s) allopurinol Yes 300 mg = 1 [facility] 300 mg oral 1-07 tab, PO, l tablet 16:13: Daily, 0 [place] 00 Refill(s) allopurinol Yes 300 mg = 1 [facility] 300 mg oral 1-07 tab, PO, l tablet 16:13: Daily, 0 [place] 00 Refill(s) allopurinol Yes 300 mg = 1 [facility] 300 mg oral 1-07 tab, PO, l tablet 16:13: Daily, 0 [place] 00 Refill(s) allopurinol 0 Yes 300 mg = 1 [facility] 300 mg oral 1-07 tab, PO, l tablet 16:13: Daily, 0 [place] 00 Refill(s) allopurinol 0 Yes 300 mg = 1 [facility] 300 mg oral 1-07 tab, PO, l tablet 16:13: Daily, 0 [place] 00 Refill(s) allopurinol Yes 300 mg = 1 [facility] 300 mg oral 1-07 tab, PO, l tablet 16:13: Daily, 0 [place] 00 Refill(s) allopurinol 2016-0 Yes 300 mg = 1 [facility] 300 mg oral 1-07 tab, PO, l tablet 16:13: Daily, 0 [place] 00 Refill(s) allopurinol Yes 300 mg = [...] tab, PO, l tablet 16:13: Daily, 0 [place] 00 Refill(s) allopurinol Yes 300 mg = 1 [facility] 300 mg oral 1-07 tab, PO, l tablet 16:13: Daily, 0 [place] 00 Refill(s) allopurinol Yes 300 mg = 1 [facility] 300 mg oral 1-07 tab, PO, l tablet 16:13: Daily, 0 [place] 00 Refill(s) allopurinol Yes 300 mg = 1 [facility] 300 mg oral 1-07 tab, PO, l tablet 16:13: Daily, 0 [place] 00 Refill(s) allopurinol Yes 300 mg = 1 [facility] 300 mg oral 1-07 tab, PO, l tablet 16:13: Daily, 0 [place] 00 Refill(s) allopurinol Yes 300 mg = 1 [facility] 300 mg oral 1-07 tab, PO, l tablet 16:13: Daily, 0 [place] 00 Refill(s) allopurinol 0 Yes 300 mg = 1 [facility] 300 mg oral 1-07 tab, PO, l tablet 16:13: Daily, 0 [place] 00 Refill(s) allopurinol 0 Yes 300 mg [...] tab, PO, l tablet 16:13: Daily, 0 [place] 00 Refill(s) allopurinol Yes 300 mg = 1 [facility] 300 mg oral 1-07 tab, PO, l tablet 16:13: Daily, 0 [place] 00 Refill(s) allopurinol Yes 300 mg = 1 [facility] 300 mg oral 1-07 tab, PO, l tablet 16:13: Daily, 0 [place] 00 Refill(s) allopurinol Yes 300 mg = 1 [facility] 300 mg oral 1-07 tab, PO, l tablet 16:13: Daily, 0 [place] 00 Refill(s) allopurinol Yes 300 mg = 1 [facility] 300 mg oral 1-07 tab, PO, l tablet 16:13: Daily, 0 [place] 00 Refill(s) allopurinol Yes 300 mg = 1 [facility] 300 mg oral 1-07 tab, PO, l tablet 16:13: Daily, 0 [place] 00 Refill(s) allopurinol Yes 300 mg = 1 [facility] 300 mg oral 1-07 tab, PO, l tablet 16:13: Daily, 0 [place] 00 Refill(s) allopurinol 0 Yes 300 mg = 1 [facility] 300 mg oral 1-07 tab, PO, l tablet 16:13: Daily, 0 [place] 00 Refill(s) allopurinol 0 Yes 300 mg = 1 [facility] 300 mg oral 1-07 tab, PO, l tablet 16:13: Daily, 0 [place] 00 Refill(s) allopurinol Yes 300 mg = 1 [facility] 300 mg oral 1-07 tab, PO, l tablet 16:13: Daily, 0 [place] 00 Refill(s) allopurinol 2016-0 Yes 300 mg = 1 [facility] 300 mg oral 1-07 tab, PO, l tablet 16:13: Daily, 0 [place] 00 Refill(s) allopurinol Yes 300 mg = 1 [facility] 300 mg oral 1-07 tab, PO, l tablet 16:13: Daily, 0 [place] 00 Refill(s) allopurinol Yes 300 mg = 1 [facility] 300 mg oral 1-07 tab, PO, l tablet 16:13: Daily, 0 [place] 00 Refill(s) allopurinol Yes 300 mg = 1 [facility] 300 mg oral 1-07 tab, PO, l tablet 16:13: Daily, 0 [place] 00 Refill(s) allopurinol Yes 300 mg = 1 [facility] 300 mg oral 1-07 tab, PO, l tablet 16:13: Daily, 0 [place] 00 Refill(s) allopurinol Yes 300 mg = 1 [facility] 300 mg oral 1-07 tab, PO, l tablet 16:13: Daily, 0 [place] 00 Refill(s) allopurinol Yes 300 mg = 1 [facility] 300 mg oral 1-07 tab, PO, l tablet 16:13: Daily, 0 [place] 00 Refill(s) allopurinol Yes 300 mg = [...] tab, PO, l tablet 16:13: Daily, 0 [place] 00 Refill(s) allopurinol Yes 300 mg = [...] tab, PO, l tablet 16:13: Daily, 0 [place] 00 Refill(s) allopurinol Yes 300 mg = 1 [facility] 300 mg oral 1-07 tab, PO, l tablet 16:13: Daily, 0 [place] 00 Refill(s) allopurinol 0 Yes 300 mg = 1 [facility] 300 mg oral 1-07 tab, PO, l tablet 16:13: Daily, 0 [place] 00 Refill(s) allopurinol 0 Yes 300 mg [...] l tablet 16:13: Daily, 0 Refill(s) allopurinol 0 Yes 300 mg = [...] ia Home 1-07 0 l Medication 16:12: [place] 00 Unknown 0 Yes Refill(s) [facility] 1-07 0 l Medication 16:12: Unknown 0 Yes Refill(s) [facility] 1-07 0 l Medication 16:12: Unknown 0 Yes Refill(s) [facility] 1-07 0 l Medication 16:12: [place] 00 Unknown 0 Yes Refill(s) [facility] 1-07 0 l Medication 16:12: [place] 00 Unknown 0 Yes Refill(s) [facility] 1-07 0 l Medication 16:12: [place] 00 Unknown 0 Yes Refill(s) [facility] 1-07 0 l Medication 16:12: [place] 00 Unknown 0 Yes Refill(s) [facility] 1-07 0 l Medication 16:12: [place] 00 Unknown 2015-0 Yes Refill(s) [facility] 1-07 0 l Medication 16:12: [place] 00 Unknown 2015-0 Yes Refill(s) [facility] [...] n Coated 00 Refill(s) Tablet [Protonix] pantoprazol 2015 Yes 40 mg = 1 M [facility] [...] l de 50 MG 16:10: TID, 0 [place] Oral Tablet 00 Refill(s) Hydralazine 0 Yes [...] l de 50 MG 16:10: TID, 0 [place] Oral Tablet 00 Refill(s) Hydralazine 2015-0 Yes 50 mg = 1 [facility] Hydrochlori -07 tab, PO, l de 50 MG 16:10: TID, 0 [place] Oral Tablet 00 Refill(s) Hydralazine 0 Yes 50 mg = 1 [facility] Hydrochlori 07 tab, PO, l de 50 MG 16:10: TID, 0 [place] Oral Tablet 00 Refill(s) Hydralazine 0 Yes 50 mg = 1 [facility] Hydrochlori -07 tab, PO, l de 50 MG 16:10: TID, 0 [place] Oral Tablet 00 Refill(s) Hydralazine 0 Yes [...] l de 50 MG 16:10: TID, 0 [place] Oral Tablet 00 Refill(s) Hydralazine 0 Yes 50 mg = 1 [facility] Hydrochlori -07 tab, PO, l de 50 MG 16:10: TID, 0 [place] Oral Tablet 00 Refill(s) Hydralazine 0 Yes 50 mg = 1 [facility] Hydrochlori 07 tab, PO, l de 50 MG 16:10: TID, 0 [place] Oral Tablet 00 Refill(s) Hydralazine 2015-0 Yes 50 mg = 1 [facility] Hydrochlori -07 tab, PO, l de 50 MG 16:10: TID, 0 [place] Oral Tablet 00 Refill(s) Hydralazine 2015-0 Yes 50 mg = 1 [facility] Hydrochlori -07 tab, PO, l de 50 MG 16:10: TID, 0 [place] Oral Tablet 00 Refill(s) Hydralazine 20160 Yes 50 mg = 1 [facility] Hydrochlori -07 tab, PO, l de 50 MG 16:10: TID, 0 [place] Oral Tablet 00 Refill(s) Hydralazine 20160 Yes [...] l de 50 MG 16:10: TID, 0 [place] Oral Tablet 00 Refill(s) Hydralazine 0 Yes 50 mg = 1 [facility] Hydrochlori 07 tab, PO, l de 50 MG 16:10: TID, 0 [place] Oral Tablet 00 Refill(s) Hydralazine 0 Yes 50 mg = 1 [facility] Hydrochlori 07 tab, PO, l de 50 MG 16:10: TID, 0 [place] Oral Tablet 00 Refill(s) Hydralazine 20160 Yes 50 mg = 1 [facility] Hydrochlori -07 tab, PO, l de 50 MG 16:10: TID, 0 [place] Oral Tablet 00 Refill(s) Hydralazine 0 Yes 50 mg = 1 [facility] Hydrochlori -07 tab, PO, l de 50 MG 16:10: TID, 0 [place] Oral Tablet 00 Refill(s) Hydralazine 20160 Yes 50 mg = 1 [facility] Hydrochlori -07 tab, PO, l de 50 MG 16:10: TID, 0 [place] Oral Tablet 00 Refill(s) Hydralazine 20160 Yes [...] l de 50 MG 16:10: TID, 0 [place] Oral Tablet 00 Refill(s) Hydralazine 0 Yes 50 mg = 1 [facility] Hydrochlori -07 tab, PO, l de 50 MG 16:10: TID, 0 [place] Oral Tablet 00 Refill(s) Hydralazine 0 Yes 50 mg = 1 [facility] Hydrochlori -07 tab, PO, l de 50 MG 16:10: TID, 0 [place] Oral Tablet 00 Refill(s) Hydralazine 0 Yes 50 mg = 1 [facility] Hydrochlori -07 tab, PO, l de 50 MG 16:10: TID, 0 [place] Oral Tablet 00 Refill(s) Hydralazine 0 Yes 50 mg = 1 [facility] Hydrochlori -07 tab, PO, l de 50 MG 16:10: TID, 0 [place] Oral Tablet 00 Refill(s) Hydralazine 0 Yes 50 mg = 1 [facility] Hydrochlori -07 tab, PO, l de 50 MG 16:10: TID, 0 [place] Oral Tablet 00 Refill(s) Hydralazine 0 Yes [...] l de 50 MG 16:10: TID, 0 [place] Oral Tablet 00 Refill(s) Hydralazine 0 Yes 50 mg = 1 [facility] Hydrochlori 07 tab, PO, l de 50 MG 16:10: TID, 0 [place] Oral Tablet 00 Refill(s) Hydralazine 0 Yes 50 mg = 1 [facility] Hydrochlori 07 tab, PO, l de 50 MG 16:10: TID, 0 [place] Oral Tablet 00 Refill(s) Hydralazine 0 Yes 50 mg = 1 [facility] Hydrochlori 11-07 tab, PO, l de 50 MG 16:10: TID, 0 [place] Oral Tablet 00 Refill(s) Hydralazine 0 Yes 50 mg = 1 [facility] Hydrochlori 11-07 tab, PO, l de 50 MG 16:10: TID, 0 [place] Oral Tablet 00 Refill(s) Hydralazine 0 Yes 50 mg = 1 [facility] Hydrochlori 11-07 tab, PO, l de 50 MG 16:10: TID, 0 [place] Oral Tablet 00 Refill(s) Hydralazine 0 Yes 50 mg = 1 [facility] Hydrochlori 11-07 tab, PO, l de 50 MG 16:10: TID, 0 [place] Oral Tablet 00 Refill(s) Hydralazine 0 Yes [...] l de 50 MG 16:10: TID, 0 [place] Oral Tablet 00 Refill(s) Hydralazine 0 Yes [...] l de 50 MG 16:10: TID, 0 [place] Oral Tablet 00 Refill(s) Hydralazine 0 Yes 50 mg = 1 [facility] Hydrochlori 11-07 tab, PO, l de 50 MG 16:10: TID, 0 [place] Oral Tablet 00 Refill(s) Hydralazine 2015-0 Yes [...] l de 50 MG 16:10: TID, 0 [place] Oral Tablet 00 Refill(s) Hydralazine 2015-0 Yes 50 mg = 1 [facility] Hydrochlori 07 tab, PO, l de 50 MG 16:10: TID, 0 [place] Oral Tablet 00 Refill(s) Hydralazine 2016-0 Yes 50 mg = 1 [facility] Hydrochlori 07 tab, PO, l de 50 MG 16:10: TID, 0 [place] Oral Tablet 00 Refill(s) Hydralazine 2015-0 Yes 50 mg = 1 [facility] Hydrochlori 07 tab, PO, l de 50 MG 16:10: TID, 0 [place] Oral Tablet 00 Refill(s) Hydralazine 2016-0 Yes 50 mg = 1 [facility] Hydrochlori 07 tab, PO, l de 50 MG 16:10: TID, 0 [place] Oral Tablet 00 Refill(s) Hydralazine 2016-0 Yes 50 mg = 1 [facility] Hydrochlori 1-07 tab, PO, l de 50 MG 16:10: TID, 0 [place] Oral Tablet 00 Refill(s) Hydralazine 2015-0 Yes 50 mg = 1 [facility] Hydrochlori -07 tab, PO, l de 50 MG 16:10: TID, 0 [place] Oral Tablet 00 Refill(s) Hydralazine 0 Yes 50 mg = 1 [facility] Hydrochlori -07 tab, PO, l de 50 MG 16:10: TID, 0 [place] Oral Tablet 00 Refill(s) Hydralazine 0 Yes 50 mg = 1 [facility] Hydrochlori 07 tab, PO, l de 50 MG 16:10: TID, 0 [place] Oral Tablet 00 Refill(s) Hydralazine 0 Yes 50 mg = 1 [facility] Hydrochlori 07 tab, PO, l de 50 MG 16:10: TID, 0 [place] Oral Tablet 00 Refill(s) Hydralazine 0 Yes [...] l de 50 MG 16:10: TID, 0 [place] Oral Tablet 00 Refill(s) Hydralazine 0 Yes 50 mg = 1 [facility] Hydrochlori -07 tab, PO, l de 50 MG 16:10: TID, 0 [place] Oral Tablet 00 Refill(s) Hydralazine 2015-0 Yes 50 mg = 1 [facility] Hydrochlori -07 tab, PO, l de 50 MG 16:10: TID, 0 [place] Oral Tablet 00 Refill(s) Hydralazine 0 Yes 50 mg = 1 [facility] Hydrochlori -07 tab, PO, l de 50 MG 16:10: TID, 0 [place] Oral Tablet 00 Refill(s) Hydralazine Yes 50 [...] l de 50 MG 16:10: TID, 0 [place] Oral Tablet 00 Refill(s) Hydralazine Yes 50 [...] tab, PO, l tablet 16:09: BID, 0 [place] 00 Refill(s) lisinopril Yes 10 mg = 1 [facility] 10 mg oral 1-07 tab, PO, l tablet 16:09: BID, 0 [place] 00 Refill(s) lisinopril 0 Yes 10 mg = 1 [facility] 10 mg oral 1-07 tab, PO, l tablet 16:09: BID, 0 [place] 00 Refill(s) lisinopril 0 Yes 10 mg = 1 [facility] 10 mg oral 1-07 tab, PO, l tablet 16:09: BID, 0 [place] 00 Refill(s) lisinopril Yes 10 mg = [...] tab, PO, l tablet 16:09: BID, 0 [place] 00 Refill(s) lisinopril 2016-0 Yes 10 mg = 1 [facility] 10 mg oral 1-07 tab, PO, l tablet 16:09: BID, 0 [place] 00 Refill(s) lisinopril 2016-0 Yes 10 mg = 1 [facility] 10 mg oral 1-07 tab, PO, l tablet 16:09: BID, 0 [place] 00 Refill(s) lisinopril 2016-0 Yes 10 mg = 1 [facility] 10 mg oral 1-07 tab, PO, l tablet 16:09: BID, 0 [place] 00 Refill(s) lisinopril 2016-0 Yes 10 mg = 1 [facility] 10 mg oral 1-07 tab, PO, l tablet 16:09: BID, 0 [place] 00 Refill(s) lisinopril 2016-0 Yes 10 mg = 1 [facility] 10 mg oral 1-07 tab, PO, l tablet 16:09: BID, 0 [place] 00 Refill(s) lisinopril 2016-0 Yes 10 mg = 1 [facility] 10 mg oral 1-07 tab, PO, l tablet 16:09: BID, 0 [place] 00 Refill(s) lisinopril 2016-0 Yes 10 mg = 1 [facility] 10 mg oral 1-07 tab, PO, l tablet 16:09: BID, 0 [place] 00 Refill(s) lisinopril 2016-0 Yes 10 mg = 1 [facility] 10 mg oral 1-07 tab, PO, l tablet 16:09: BID, 0 [place] 00 Refill(s) lisinopril 2016-0 Yes 10 mg [...] tab, PO, l tablet 16:09: BID, 0 [place] 00 Refill(s) lisinopril 2016-0 Yes 10 mg [...] tab, PO, l tablet 16:09: BID, 0 [place] 00 Refill(s) lisinopril 2016-0 Yes 10 mg = 1 [facility] 10 mg oral 1-07 tab, PO, l tablet 16:09: BID, 0 [place] 00 Refill(s) lisinopril 2016-0 Yes 10 mg = 1 [facility] 10 mg oral 1-07 tab, PO, l tablet 16:09: BID, 0 [place] 00 Refill(s) lisinopril 2016-0 Yes 10 mg = 1 [facility] 10 mg oral 1-07 tab, PO, l tablet 16:09: BID, 0 [place] 00 Refill(s) lisinopril 2016-0 Yes 10 mg = 1 [facility] 10 mg oral 1-07 tab, PO, l tablet 16:09: BID, 0 [place] 00 Refill(s) lisinopril 2016-0 Yes 10 mg [...] tab, PO, l tablet 16:09: BID, 0 [place] 00 Refill(s) lisinopril 2016-0 Yes 10 mg = 1 [facility] 10 mg oral 1-07 tab, PO, l tablet 16:09: BID, 0 [place] 00 Refill(s) lisinopril 2016-0 Yes 10 mg = 1 [facility] 10 mg oral 1-07 tab, PO, l tablet 16:09: BID, 0 [place] 00 Refill(s) lisinopril 2016-0 Yes 10 mg = 1 [facility] 10 mg oral 1-07 tab, PO, l tablet 16:09: BID, 0 [place] 00 Refill(s) lisinopril 2016-0 Yes 10 mg = 1 [facility] 10 mg oral 1-07 tab, PO, l tablet 16:09: BID, 0 [place] 00 Refill(s) lisinopril 2016-0 Yes 10 mg = 1 [facility] 10 mg oral 1-07 tab, PO, l tablet 16:09: BID, 0 [place] 00 Refill(s) lisinopril 2016-0 Yes 10 mg = 1 [facility] 10 mg oral 1-07 tab, PO, l tablet 16:09: BID, 0 [place] 00 Refill(s) lisinopril 2016-0 Yes 10 mg [...] tab, PO, l tablet 16:09: BID, 0 [place] 00 Refill(s) lisinopril 2016-0 Yes 10 mg = 1 [facility] 10 mg oral 1-07 tab, PO, l tablet 16:09: BID, 0 [place] 00 Refill(s) lisinopril 2016-0 Yes 10 mg = 1 [facility] 10 mg oral 1-07 tab, PO, l tablet 16:09: BID, 0 [place] 00 Refill(s) lisinopril 2016-0 Yes 10 mg = 1 [facility] 10 mg oral 1-07 tab, PO, l tablet 16:09: BID, 0 [place] 00 Refill(s) lisinopril 2016-0 Yes 10 mg = 1 [facility] 10 mg oral 1-07 tab, PO, l tablet 16:09: BID, 0 [place] 00 Refill(s) lisinopril 2016-0 Yes 10 mg = 1 [facility] 10 mg oral 1-07 tab, PO, l tablet 16:09: BID, 0 [place] 00 Refill(s) lisinopril 2015-0 Yes 10 mg = 1 [facility] 10 mg oral 1-07 tab, PO, l tablet 16:09: BID, 0 [place] 00 Refill(s) lisinopril 2015-0 Yes 10 mg = 1 [facility] 10 mg oral 1-07 tab, PO, l tablet 16:09: BID, 0 [place] 00 Refill(s) lisinopril 2015-0 Yes 10 mg [...] tab, PO, l tablet 16:09: BID, 0 [place] 00 Refill(s) lisinopril 2016-0 Yes 10 mg = 1 [facility] 10 mg oral 1-07 tab, PO, l tablet 16:09: BID, 0 [place] 00 Refill(s) lisinopril 2016-0 Yes 10 mg = 1 [facility] 10 mg oral 1-07 tab, PO, l tablet 16:09: BID, 0 [place] 00 Refill(s) lisinopril 2016-0 Yes 10 mg = 1 [facility] 10 mg oral 1-07 tab, PO, l tablet 16:09: BID, 0 [place] 00 Refill(s) lisinopril 2016-0 Yes 10 mg [...] tab, PO, l tablet 16:09: BID, 0 [place] 00 Refill(s) lisinopril 2016-0 Yes 10 mg [...] tab, PO, l tablet 16:09: BID, 0 [place] 00 Refill(s) lisinopril 2016-0 Yes 10 mg = 1 [facility] 10 mg oral 1-07 tab, PO, l tablet 16:09: BID, 0 [place] 00 Refill(s) lisinopril 2016-0 Yes 10 mg = 1 [facility] 10 mg oral 1-07 tab, PO, l tablet 16:09: BID, 0 [place] 00 Refill(s) lisinopril 2016- Yes 10 mg = 1 [facility] 10 mg oral 1-07 tab, PO, l tablet 16:09: BID, 0 [place] 00 Refill(s) lisinopril 2016-0 Yes 10 mg = 1 [facility] 10 mg oral 1-07 tab, PO, l tablet 16:09: BID, 0 [place] 00 Refill(s) lisinopril 0 Yes 10 mg = 1 [facility] 10 mg oral 1-07 tab, PO, l tablet 16:09: BID, 0 [place] 00 Refill(s) lisinopril 2015-0 Yes 10 mg = 1 [facility] 10 mg oral 1-07 tab, PO, l tablet 16:09: BID, 0 [place] 00 Refill(s) lisinopril 2015-0 Yes 10 mg [...] tab, PO, l tablet 16:09: BID, 0 [place] 00 Refill(s) lisinopril 2015-0 Yes 10 mg = 1 [facility] 10 mg oral 1-07 tab, PO, l tablet 16:09: BID, 0 [place] 00 Refill(s) lisinopril 2016-0 Yes 10 mg = 1 [facility] 10 mg oral 1-07 tab, PO, l tablet 16:09: BID, 0 [place] 00 Refill(s) lisinopril 2016-0 Yes 10 mg = 1 [facility] 10 mg oral 1-07 tab, PO, l tablet 16:09: BID, 0 [place] 00 Refill(s) lisinopril 2015-0 Yes 10 mg = 1 [facility] 10 mg oral 1-07 tab, PO, l tablet 16:09: BID, 0 [place] 00 Refill(s) lisinopril 2015-0 Yes 10 mg = 1 [facility] 10 mg oral 1-07 tab, PO, l tablet 16:09: BID, 0 [place] 00 Refill(s) Amlodipine 2016-0 Yes 10 mg = 1 [facility] 10 MG Oral -07 tab, PO, l Tablet 16:08: Daily, 0 [place] [Norvasc] 00 Refill(s) Hydrochloro 2016-0 Yes 25 [...] thiazide 11-07 Daily, 0 l 16:08: Refill(s) [place] 00 Amlodipine 2015-0 Yes 10 mg = 1 [facility] 10 MG Oral -07 tab, PO, l Tablet 16:08: Daily, 0 [place] [Norvasc] 00 Refill(s) Hydrochloro 2016-0 Yes 25 mg, PO, [facility] thiazide 11-07 Daily, 0 l 16:08: Refill(s) [place] 00 Amlodipine 2016-0 Yes 10 mg = 1 [facility] 10 MG Oral -07 tab, PO, l Tablet 16:08: Daily, 0 [place] [Norvasc] 00 Refill(s) Hydrochloro 2016-0 Yes 25 [...] thiazide 11-07 Daily, 0 l 16:08: Refill(s) [place] 00 Amlodipine 2016-0 Yes 10 mg = 1 [facility] 10 MG Oral -07 tab, PO, l Tablet 16:08: Daily, 0 [place] [Norvasc] 00 Refill(s) Hydrochloro 2016-0 Yes 25 mg, PO, [facility] thiazide 11-07 Daily, 0 l 16:08: Refill(s) [place] 00 Amlodipine 2016-0 Yes 10 mg = 1 [facility] 10 MG Oral -07 tab, PO, l Tablet 16:08: Daily, 0 [place] [Norvasc] 00 Refill(s) Hydrochloro 2016-0 Yes 25 mg, PO, [facility] thiazide 11-07 Daily, 0 l 16:08: Refill(s) [place] 00 Amlodipine 2016-0 Yes 10 mg = 1 [facility] 10 MG Oral -07 tab, PO, l Tablet 16:08: Daily, 0 [place] [Norvasc] 00 Refill(s) Hydrochloro 2016-0 Yes 25 mg, PO, [facility] thiazide 11-07 Daily, 0 l 16:08: Refill(s) [place] 00 Amlodipine 2016-0 Yes 10 mg = 1 [facility] 10 MG Oral 1-07 tab, PO, l Tablet 16:08: Daily, 0 [place] [Norvasc] 00 Refill(s) Hydrochloro 2016-0 Yes 25 mg, PO, [facility] thiazide - Daily, 0 l 16:08: Refill(s) [place] 00 Amlodipine 2016-0 Yes 10 mg = 1 [facility] 10 MG Oral 1-07 tab, PO, l Tablet 16:08: Daily, 0 [place] [Norvasc] 00 Refill(s) Hydrochloro 2016-0 Yes 25 mg, PO, [facility] thiazide 11-07 Daily, 0 l 16:08: Refill(s) [place] 00 Amlodipine 2016-0 Yes 10 mg = 1 [facility] 10 MG Oral -07 tab, PO, l Tablet 16:08: Daily, 0 [place] [Norvasc] 00 Refill(s) Hydrochloro 2016-0 Yes 25 mg, PO, [facility] thiazide 11-07 Daily, 0 l 16:08: Refill(s) [place] 00 Amlodipine 2015-0 Yes 10 mg = 1 [facility] 10 MG Oral -07 tab, PO, l Tablet 16:08: Daily, 0 [place] [Norvasc] 00 Refill(s) Hydrochloro 2016-0 Yes 25 mg, PO, [facility] thiazide 11-07 Daily, 0 l 16:08: Refill(s) [place] 00 Amlodipine 2016-0 Yes 10 mg = [...] tab, PO, l Tablet 16:08: Daily, 0 [place] [Norvasc] 00 Refill(s) Hydrochloro 2016-0 Yes 25 [...] tab, PO, l Tablet 16:08: Daily, 0 [place] [Norvasc] 00 Refill(s) Hydrochloro 2016-0 Yes 25 [...] tab, PO, l Tablet 16:08: Daily, 0 [place] [Norvasc] 00 Refill(s) Hydrochloro 2016-0 Yes 25 [...] tab, PO, l Tablet 16:08: Daily, 0 [place] [Norvasc] 00 Refill(s) Hydrochloro 2016-0 Yes 25 mg, PO, [facility] thiazide 07 Daily, 0 l 16:08: Refill(s) [place] 00 Amlodipine 2016-0 Yes 10 mg = 1 [facility] 10 MG Oral 1-07 tab, PO, l Tablet 16:08: Daily, 0 [place] [Norvasc] 00 Refill(s) Hydrochloro 2016-0 Yes 25 mg, PO, [facility] thiazide 11-07 Daily, 0 l 16:08: Refill(s) [place] 00 Amlodipine 2016-0 Yes 10 mg = [...] thiazide 11-07 Daily, 0 l 16:08: Refill(s) [place] 00 Amlodipine 2016-0 Yes 10 mg = 1 [facility] 10 MG Oral -07 tab, PO, l Tablet 16:08: Daily, 0 [place] [Norvasc] 00 Refill(s) Hydrochloro 2016-0 Yes 25 mg, PO, [facility] thiazide 11-07 Daily, 0 l 16:08: Refill(s) [place] 00 Amlodipine 2016-0 Yes 10 mg = 1 [facility] 10 MG Oral 1-07 tab, PO, l Tablet 16:08: Daily, 0 [place] [Norvasc] 00 Refill(s) Hydrochloro 2016-0 Yes 25 mg, PO, [facility] thiazide 07 Daily, 0 l 16:08: Refill(s) [place] 00 Amlodipine 2016-0 Yes 10 mg = 1 [facility] 10 MG Oral 1-07 tab, PO, l Tablet 16:08: Daily, 0 [place] [Norvasc] 00 Refill(s) Hydrochloro 2016-0 Yes 25 mg, PO, [facility] thiazide 107 Daily, 0 l 16:08: Refill(s) [place] 00 Amlodipine 2016-0 Yes 10 mg = 1 [facility] 10 MG Oral 1-07 tab, PO, l Tablet 16:08: Daily, 0 [place] [Norvasc] 00 Refill(s) Hydrochloro 2016-0 Yes 25 mg, PO, [facility] thiazide 11-07 Daily, 0 l 16:08: Refill(s) Amlodipine 2016-0 Yes 10 mg = 1 [facility] 10 MG Oral -07 tab, PO, l Tablet 16:08: Daily, 0 [place] [Norvasc] 00 Refill(s) Hydrochloro 2016-0 Yes 25 mg, PO, [facility] thiazide 11-07 Daily, 0 l 16:08: Refill(s) Amlodipine 2016-0 Yes 10 mg = 1 [facility] 10 MG Oral 1-07 tab, PO, l Tablet 16:08: Daily, 0 [place] [Norvasc] 00 Refill(s) Hydrochloro 2016-0 Yes 25 mg, PO, [facility] thiazide 11-07 Daily, 0 l 16:08: Refill(s) Amlodipine 2016-0 Yes 10 mg = 1 [facility] 10 MG Oral -07 tab, PO, l Tablet 16:08: Daily, 0 [place] [Norvasc] 00 Refill(s) Hydrochloro 2016-0 Yes 25 [...] 16:08: Daily, 0 [place] [Norvasc] 00 Refill(s) Amlodipine 2016-0 Yes 10 mg = 1 [facility] 10 MG Oral -07 tab, PO, l Tablet 16:08: Daily, 0 [place] [Norvasc] 00 Refill(s) Hydrochloro 2016-0 Yes 25 mg, PO, [facility] thiazide 11-07 Daily, 0 l 16:08: Refill(s) [place] 00 Hydrochloro 2016-0 Yes 25 mg, PO, [facility] [...] tab, PO, l Tablet 16:08: Daily, 0 [place] [Norvasc] 00 Refill(s) Hydrochloro 2016-0 Yes 25 [...] tab, PO, l Tablet 16:08: Daily, 0 [place] [Norvasc] 00 Refill(s) Hydrochloro 2016-0 Yes 25 [...] thiazide 1-07 Daily, 0 l 16:08: Refill(s) [place] 00 Amlodipine 2016-0 Yes 10 mg = 1 [facility] 10 MG Oral 1-07 tab, PO, l Tablet 16:08: Daily, 0 [place] [Norvasc] 00 Refill(s) Hydrochloro 2016-0 Yes 25 mg, PO, [facility] thiazide 11-07 Daily, 0 l 16:08: Refill(s) Amlodipine 2016-0 Yes 10 mg = 1 [facility] 10 MG Oral 1-07 tab, PO, l Tablet 16:08: Daily, 0 [place] [Norvasc] 00 Refill(s) Hydrochloro 2016-0 Yes 25 [...] tab, PO, l Tablet 16:08: Daily, 0 [place] [Norvasc] 00 Refill(s) Hydrochloro 2016-0 Yes 25 mg, PO, [facility] thiazide 11-07 Daily, 0 l 16:08: Refill(s) Amlodipine 2016-0 Yes 10 mg = 1 [facility] 10 MG Oral 1-07 tab, PO, l Tablet 16:08: Daily, 0 [place] [Norvasc] 00 Refill(s) Hydrochloro 2016-0 Yes 25 mg, PO, [facility] thiazide 1-07 Daily, 0 l 16:08: Refill(s) [place] 00 Amlodipine 2016-0 Yes 10 mg = 1 [facility] 10 MG Oral 1-07 tab, PO, l Tablet 16:08: Daily, 0 [place] [Norvasc] 00 Refill(s) Hydrochloro 2016-0 Yes 25 mg, PO, [facility] thiazide 1-07 Daily, 0 l 16:08: Refill(s) [place] 00 Amlodipine 2016-0 Yes 10 mg = 1 [facility] 10 MG Oral -07 tab, PO, l Tablet 16:08: Daily, 0 [place] [Norvasc] 00 Refill(s) Hydrochloro 2016-0 Yes 25 mg, PO, [facility] thiazide 11-07 Daily, 0 l 16:08: Refill(s) Amlodipine 2015-0 Yes 10 mg = 1 [facility] 10 MG Oral -07 tab, PO, l Tablet 16:08: Daily, 0 [place] [Norvasc] 00 Refill(s) Hydrochloro 2016-0 Yes 25 mg, PO, [facility] thiazide 11-07 Daily, 0 l 16:08: Refill(s) [place] 00 Amlodipine 2015-0 Yes 10 mg = 1 [facility] 10 MG Oral -07 tab, PO, l Tablet 16:08: Daily, 0 [place] [Norvasc] 00 Refill(s) Hydrochloro 2016-0 Yes 25 mg, PO, [facility] thiazide 11-07 Daily, 0 l 16:08: Refill(s) [place] 00 Amlodipine 2015-0 Yes 10 mg = 1 [facility] 10 MG Oral -07 tab, PO, l Tablet 16:08: Daily, 0 [place] [Norvasc] 00 Refill(s) Hydrochloro 2016-0 Yes 25 mg, PO, [facility] thiazide 11-07 Daily, 0 l 16:08: Refill(s) Amlodipine 2016-0 Yes 10 mg = 1 [facility] 10 MG Oral -07 tab, PO, l Tablet 16:08: Daily, 0 [place] [Norvasc] 00 Refill(s) Hydrochloro 2016-0 Yes 25 mg, PO, [facility] thiazide 07 Daily, 0 l 16:08: Refill(s) [place] 00 Amlodipine 2016-0 Yes 10 mg = 1 [facility] [place] 10 MG Oral -07 tab, PO, l Tablet 16:08: Daily, 0 [place] [Norvasc] 00 Refill(s) Hydrochloro 2016-0 Yes 25 mg, PO, [facility] thiazide 1-07 Daily, 0 l 16:08: Refill(s) [place] 00 Amlodipine 2016-0 Yes 10 mg = 1 Me [facility] 10 MG Oral -07 tab, PO, l Tablet 16:08: Daily, 0 [place] [Norvasc] 00 Refill(s) Hydrochloro 2016-0 Yes 25 [...] tab, PO, l Tablet 16:08: Daily, 0 [place] [Norvasc] 00 Refill(s) Hydrochloro 2016-0 Yes 25 mg, PO, [facility] thiazide 11-07 Daily, 0 l 16:08: Refill(s) Amlodipine 2016-0 Yes 10 mg = 1 [facility] [place] 10 MG Oral -07 tab, PO, l Tablet 16:08: Daily, 0 [place] [Norvasc] 00 Refill(s) Hydrochloro 2016-0 Yes 25 mg, PO, [facility] thiazide 11-07 Daily, 0 l 16:08: Refill(s) Amlodipine 2016-0 Yes 10 mg = 1 Me [place] 10 MG Oral -07 tab, PO, l Tablet 16:08: Daily, 0 [place] [Norvasc] 00 Refill(s) Hydrochloro 2016-0 Yes 25 mg, PO, [facility] thiazide 07 Daily, 0 l 16:08: Refill(s) Amlodipine 2016-0 Yes 10 mg = 1 Me [place] 10 MG Oral 1-07 tab, PO, l Tablet 16:08: Daily, 0 [place] [Norvasc] 00 Refill(s) Hydrochloro 2016-0 Yes 25 mg, PO, [facility] thiazide 107 Daily, 0 l 16:08: Refill(s) [place] 00 Amlodipine 2016-0 Yes 10 mg = 1 Me [facility] 10 MG Oral 1-07 tab, PO, l Tablet 16:08: Daily, 0 [place] [Norvasc] 00 Refill(s) Hydrochloro 2016-0 Yes 25 mg, PO, [facility] thiazide 11-07 Daily, 0 l 16:08: Refill(s) Amlodipine 2016-0 Yes 10 mg = 1 [facility] [place] 10 MG Oral 1-07 tab, PO, l Tablet 16:08: Daily, 0 [place] [Norvasc] 00 Refill(s) Hydrochloro 2016-0 Yes 25 [...] tab, PO, l Tablet 16:08: Daily, 0 [place] [Norvasc] 00 Refill(s) Hydrochloro 2016-0 Yes 25 mg, PO, [facility] thiazide 11-07 Daily, 0 l 16:08: Refill(s) [place] Amlodipine Yes 10 mg = 1 Me [facility] 10 MG Oral - tab, PO, l Tablet 16:08: Daily, 0 [place] [Norvasc] 00 Refill(s) Hydrochloro 2016 Yes 25 mg, PO, [facility] thiazide 11-07 Daily, 0 l 16:08: Refill(s) [place] Amlodipine Yes 10 mg = 1 Me [...] 100 mg oral 16:07: BID, 0 [facility] tablet 00 Refill(s) metoprolol 0 Yes 100 [...] Refill(s) albuterol albuterol No albuterol [facility] sulfate 2.5 sulfate 2.5 sulfate Family mg/3 mL mg/3 mL 2.5 mg/3 Pract ic (0.083 %) (0.083 %) mL (0.083 e solution solution %) for for solution nebulizatio nebulizatio for n n nebulizati on albuterol albuterol No albuterol [facility] sulfate HFA sulfate HFA sulfate Family [...] BREATH allopurinol allopurinol No allopurino [facility] 300 mg 300 mg l 300 mg Family tablet TAKE tablet TAKE tablet Practic 1 TABLET BY 1 TABLET BY TAKE 1 e MOUTH TWICE MOUTH TWICE TABLET BY DAILY. DAILY. MOUTH TWICE DAILY. alprazolam alprazolam No alprazolam [facility] 2 mg tablet 2 mg tablet 2 mg F amily TAKE 1 TAKE 1 tablet Practic TABLET BY TABLET BY TAKE 1 e MOUTH THREE MOUTH THREE TABLET BY TIMES DAILY TIMES DAILY MOUTH NEEDED NEEDED THREE FOR ANXIETY FOR ANXIETY TIMES DAILY NEEDED FOR ANXIETY amlodipine amlodipine No amlodipine [facility] 5 mg tablet 5 mg tablet 5 mg F amily TAKE 1 TAKE 1 tablet Practic TABLET BY TABLET BY TAKE 1 e MOUTH EVERY MOUTH EVERY TABLET BY DAY DAY MOUTH EVERY DAY atorvastati atorvastati No atorvastat [facility] n 20 mg n 20 mg [...] DAILY colchicine colchicine No colchicine [facility] 0.6 mg 0.6 mg 0.6 mg [...] DIARRHEA cyclobenzap cyclobenzap No cyclobenza [facility] rine 10 mg rine 10 mg [...] HOURS gabapentin gabapentin No gabapentin [facility] 600 mg 600 mg 600 mg [...] EVENING hydralazine hydralazine No hydralazin [facility] 100 mg 100 mg e 100 mg Family tablet TAKE tablet TAKE tablet [facility] 1 TABLET BY 1 TABLET BY TAKE 1 e MOUTH THREE MOUTH THREE TABLET BY TIMES DAILY TIMES DAILY MOUTH THREE TIMES DAILY hydrochloro hydrochloro No hydrochlor [facility] thiazide thiazide othiazide davida 12.5 mg 12.5 mg 12.5 mg Practi c capsule capsule capsule e TAKE 1 TAKE 1 TAKE 1 CAPSULE BY CAPSULE BY CAPSULE BY MOUTH DAILY MOUTH DAILY MOUTH DAILY hydrocodone hydrocodone No hydrocodon [facility] 7.5 7.5 e 7.5 [facility] mg-acetamin mg-acetamin mg-acetami Pract[facility] ophen 325 ophen [...] MEALS ipratropium ipratropium No ipratropiu [facility] bromide bromide m bromide Fami ly 0.02 % 0.02 % 0.02 % Practic solution solution solution e for for for inhalation inhalation inhalation lisinopril lisinopril No lisinopril [facility] 40 mg 40 mg 40 mg Family tablet TAKE tablet TAKE tablet [facility] 1/2 TABLET 1/2 TABLET TAKE 1/2 e BY MOUTH BY MOUTH TABLET BY TWICE DAILY TWICE DAILY MOUTH TWICE DAILY mesalamine mesalamine No mesalamine [facility] ER 0.375 ER 0.375 ER 0.375 Fam ramses gram gram gram [facility] capsule,ext capsule,ext capsule,ex e ended ended tended release 24 release 24 release 24 hr TAKE 4 hr TAKE 4 hr TAKE 4 CAPSULES BY CAPSULES BY CAPSULES MOUTH DAILY MOUTH DAILY BY MOUTH DAILY metformin metformin No metformin [facility] 1,000 mg 1,000 mg 1,000 mg Fam ramses tablet TAKE tablet TAKE tablet [facility] 1 TABLET BY 1 TABLET BY TAKE 1 e MOUTH TWICE MOUTH TWICE TABLET BY DAILY WITH DAILY WITH MOUTH MEALS MEALS TWICE DAILY WITH MEALS metoprolol metoprolol No metoprolol [facility] tartrate tartrate tartrate Fam ramses 100 [...] DAILY TABLET BY MOUTH DAILY [facility] in 0.4 mg rin 0.4 mg [facility] sublingual sublingual sublingual [facility] tablet tablet tablet e PLACE [address] 1 TABLET TABLET TABLET UNDER THE UNDER THE UNDER THE TONGUE TONGUE TONGUE EVERY 5 EVERY 5 EVERY 5 MINUTES MINUTES MINUTES NEEDED FOR NEEDED FOR NEEDED FOR CHEST PAIN. CHEST PAIN. CHEST PAIN. ondansetron ondansetron No ondansetro [facility] HCl 4 mg HCl 4 mg [...] BY MOUTH DAILY prednisone prednisone No prednisone [facility] 10 mg 10 mg 10 mg [...] Universit y of Vaccine Quad IM, 00:00:00 [facility] dical Preserv and ABX Branch Free 6 [...] Universit y of Vaccine Quad IM, 00:00:00 [place] [facility] Preserv and ABX Branch Free 6 MO-64 YRS Influenza Virus 2022-09-21 Completed [facility]it y of Vaccine Quad IM, 00:00:00 [place] [facility] Preserv and ABX Branch Free 6 MO-64 YRS Influenza Virus 2022-09-21 Completed Universit y of Vaccine Quad IM, 00:00:00 [facility] dical Preserv and ABX Branch Free 6 MO-64 YRS SARS-COV-2 COVID-19 2021-07-11 Completed Unive rsity of MODERNA VACCINE 00:00:00 [facility] Branch SARS-COV-2 COVID-19 2021-07-11 Completed Unive rsity of MODERNA VACCINE 00:00:00 [facility] SARS-COV-2 COVID-19 2021-07-11 Completed Unive rsity of [...] Unive rsity of MODERNA VACCINE 00:00:00 [facility] ical Branch SARS-COV-2 COVID-19 2020-12-03 Completed Unive rsity of MODERNA VACCINE 00:00:00 [place] [facility] SARS-COV-2 COVID-19 2020-12-03 Completed Unive rsity of MODERNA VACCINE 00:00:00 [facility] ical Branch SARS-COV-2 COVID-19 2020-12-03 Completed Unive rsity of MODERNA VACCINE 00:00:00 [place] [facility] SARS-COV-2 COVID-19 2020-12-03 Completed Unive rsity of MODERNA VACCINE 00:00:00 [facility] ical Branch SARS-COV-2 COVID-19 2020-12-03 Completed Unive rsity of MODERNA VACCINE 00:00:00 [place] [facility] SARS-COV-2 COVID-19 2020-12-03 Completed Unive rsity of MODERNA VACCINE 00:00:00 [facility] ical Branch SARS-COV-2 COVID-19 2020-12-03 Completed Unive rsity of MODERNA VACCINE 00:00:00 [facility] ical Branch SARS-COV-2 COVID-19 2020-12-03 Completed [...] rsity of MODERNA 12+ YRS 00:00:00 [facility] ical VACCINE Branch SARS-COV-2 COVID-19 2020-12-03 Completed Unive rsity of MODERNA 12+ YRS 00:00:00 [facility] ical VACCINE Branch Influenza [...] y of Vaccine Quad .5 mL 00:00:00 [facility] IM 6+ MO Branch Influenza Virus 2020-11-13 Completed Universit y of Vaccine Quad .5 mL 00:00:00 [facility] 6+ MO Branch Pneumococcal 2016-09-11 Completed University o f Polysaccharide, 00:00:00 [place] [facility] PPSV23 (PNEUMOVAX) Branch Influenza Virus 2016-09-11 Completed Universit y of Vaccine (3+ yrs) 00:00:00 [facility] dicsd Branch Pneumococcal 2016-09-11 Completed University o f Polysaccharide, 00:00:00 [place] [facility] PPSV23 (PNEUMOVAX) Branch Influenza Virus 2016-09-11 Completed Universit y of Vaccine (3+ yrs) 00:00:00 [facility] Branch Pneumococcal 2016-09-11 Completed University o f Polysaccharide, 00:00:00 [place] [facility] PPSV23 (PNEUMOVAX) Branch Influenza Virus 2016-09-11 Completed Universit y of Vaccine (3+ yrs) 00:00:00 [facility] Branch Pneumococcal 2016-09-11 Completed University o f Polysaccharide, 00:00:00 [place] [facility] PPSV23 (PNEUMOVAX) Branch Influenza Virus 2016-09-11 Completed Universit y of Vaccine (3+ yrs) 00:00:00 [facility] Branch Pneumococcal 2016-09-11 Completed University o f Polysaccharide, 00:00:00 [facility] ical PPSV23 (PNEUMOVAX) Branch Influenza Virus 2016-09-11 Completed Universit y of Vaccine (3+ yrs) 00:00:00 [facility] Branch Pneumococcal 2016-09-11 Completed University o f Polysaccharide, 00:00:00 [place] [facility] PPSV23 (PNEUMOVAX) Branch Influenza Virus 2016-09-11 Completed Universit y of Vaccine (3+ yrs) 00:00:00 [facility] Branch Pneumococcal 2016-09-11 Completed University o f Polysaccharide, 00:00:00 [place] [facility] PPSV23 (PNEUMOVAX) Branch Influenza Virus 2016-09-11 Completed Universit y of Vaccine (3+ yrs) 00:00:00 [facility] Branch Pneumococcal 2016-09-11 Completed University o f Polysaccharide, 00:00:00 [place] [facility] PPSV23 (PNEUMOVAX) Branch Influenza Virus 2016-09-11 Completed Universit y of Vaccine (3+ yrs) 00:00:[address] [facility] Pneumococcal 2016-09-11 Completed University o f Polysaccharide, 00:00:00 [place] [facility] PPSV23 (PNEUMOVAX) Branch Influenza Virus 2016-09-11 Completed Universit y of Vaccine (3+ yrs) 00:00:00 [facility] [place] Branch Pneumococcal 2016-09-11 Completed University o f Polysaccharide, 00:00:00 [place] [facility] PPSV23 (PNEUMOVAX) Branch Influenza Virus 2016-09-11 Completed Universit y of Vaccine (3+ yrs) 00:00:00 [facility] [place] Branch Pneumococcal 2016-09-11 Completed University o f Polysaccharide, 00:00:00 [place] [facility] PPSV23 (PNEUMOVAX) Branch Influenza Virus 2016-09-11 Completed Universit y of Vaccine (3+ yrs) 00:00:00 [facility] Branch Pneumococcal 2016-09-11 Completed University o f Polysaccharide, 00:00:00 [place] [facility] PPSV23 (PNEUMOVAX) Branch Influenza Virus 2016-09-11 Completed Universit y of Vaccine (3+ yrs) 00:00:00 [facility] Branch Pneumococcal 2016-09-11 Completed University o f Polysaccharide, 00:00:00 [place] [facility] PPSV23 (PNEUMOVAX) Branch Influenza Virus 2016-09-11 Completed Universit y of Vaccine (3+ yrs) 00:00:[address] [facility] Pneumococcal 2016-09-11 Completed University o f Polysaccharide, 00:00:00 [place] [facility] PPSV23 (PNEUMOVAX) Branch Influenza Virus 2016-09-11 Completed Universit y of Vaccine (3+ yrs) 00:00:[address] [facility] Pneumococcal 2016-09-11 Completed University o f Polysaccharide, 00:00:00 [place] [facility] PPSV23 (PNEUMOVAX) Branch Influenza Virus 2016-09-11 Completed Universit y of Vaccine (3+ yrs) 00:00:[address] [facility] Pneumococcal 2016-09-11 Completed University o f Polysaccharide, 00:00:00 [place] [facility] PPSV23 (PNEUMOVAX) Branch Influenza Virus 2016-09-11 Completed Universit y of Vaccine (3+ yrs) 00:00:[address] [facility] Pneumococcal 2016-09-11 Completed University o f Polysaccharide, 00:00:00 [place] [facility] PPSV23 (PNEUMOVAX) Branch Influenza Virus 2016-09-11 Completed Universit y of Vaccine (3+ yrs) 00:00:[address] [facility] Pneumococcal 2016-09-11 Completed University o f Polysaccharide, 00:00:00 [place] [facility] PPSV23 (PNEUMOVAX) Branch Influenza Virus 2016-09-11 Completed Universit y of Vaccine (3+ yrs) 00:00:00 [facility] dical Branch Pneumococcal 2016-09-11 Completed University o f Polysaccharide, 00:00:00 [place] [facility] PPSV23 (PNEUMOVAX) Branch Influenza Virus 2016-09-11 Completed Universit y of Vaccine (3+ yrs) 00:00:00 [facility] [place] Branch Pneumococcal 2016-09-11 Completed University o f Polysaccharide, 00:00:00 [place] [facility] PPSV23 (PNEUMOVAX) Branch Influenza Virus 2016-09-11 Completed Universit y of Vaccine (3+ yrs) 00:00:00 [facility] [place] Branch Pneumococcal 2016-09-11 Completed University o f Polysaccharide, 00:00:00 [place] [facility] PPSV23 (PNEUMOVAX) Branch Influenza Virus 2016-09-11 Completed Universit y of Vaccine (3+ yrs) 00:00:00 [facility] [place] [facility] Pneumococcal 2016-09-11 Completed University o f Polysaccharide, 00:00:00 [place] [facility] PPSV23 (PNEUMOVAX) Branch Influenza Virus 2016-09-11 Completed Universit y of Vaccine (3+ yrs) 00:00:00 [facility] [place] [facility] Pneumococcal 2016-09-11 Completed University o f Polysaccharide, 00:00:00 [place] [facility] PPSV23 (PNEUMOVAX) Branch Influenza Virus 2016-09-11 Completed Universit y of Vaccine (3+ yrs) 00:00:00 [facility] [place] Branch Pneumococcal 2016-09-11 Completed University o f Polysaccharide, 00:00:00 [place] [facility] PPSV23 (PNEUMOVAX) Branch Influenza Virus 2016-09-11 Completed Universit y of Vaccine (3+ yrs) 00:00:00 [facility] Branch Pneumococcal 2016-09-11 Completed University o f Polysaccharide, 00:00:00 [place] [facility] PPSV23 (PNEUMOVAX) Branch Influenza Virus 2016-09-11 Completed Universit y of Vaccine (3+ yrs) 00:00:00 [facility] [place] [facility] Pneumococcal 2015-04-11 Completed University o f Polysaccharide, 00:00:00 [place] [facility] PPSV23 (PNEUMOVAX) Branch Pneumococcal 2015-04-11 Completed University o f Polysaccharide, 00:00:00 [place] [facility] PPSV23 (PNEUMOVAX) Branch Pneumococcal 2015-04-11 [...] 2015-04-11 Completed University o f Polysaccharide, 00:00:00 [place] [facility] PPSV23 (PNEUMOVAX) Branch Pneumococcal 2015-04-11 Completed University o f Polysaccharide, 00:00:00 [place] [facility] PPSV23 (PNEUMOVAX) Branch Pneumococcal 2015-04-11 Completed University o f Polysaccharide, 00:00:00 [place] [facility] PPSV23 (PNEUMOVAX) Branch Pneumococcal 2015-04-11 Completed University o f Polysaccharide, 00:00:00 [place] [facility] PPSV23 (PNEUMOVAX) Branch Pneumococcal 2015-04-11 Completed University o f Polysaccharide, 00:00:00 [facility] ical PPSV23 (PNEUMOVAX) Branch Influenza Virus 2013-09-29 Completed Universit y of Vaccine (3+ yrs) 00:00:[address] [facility] Influenza Virus 2013-09-29 Completed Universit y of Vaccine (3+ yrs) 00:00:[address] [facility] Influenza Virus 2013-09-29 Completed Universit y of Vaccine (3+ yrs) 00:00:[address] [facility] Influenza Virus 2013-09-29 Completed Universit y of Vaccine (3+ yrs) 00:00:[address] [facility] Influenza Virus 2013-09-29 Completed Universit y of Vaccine (3+ yrs) 00:00:[address] [facility] Flu Trivalent 2013-09-29 Completed University of 00:00:00 [facility] Influenza Virus 2013-09-29 Completed Universit y of Vaccine (3+ yrs) 00:00:[address] [facility] Flu Trivalent 2013-09-29 Completed University of 00:00:00 [facility] Influenza Virus 2013-09-29 Completed Universit y of Vaccine (3+ yrs) 00:00:[address] [facility] Flu Trivalent 2013-09-29 Completed University of 00:00:00 [facility] Influenza Virus 2013-09-29 Completed Universit y of Vaccine (3+ yrs) 00:00:[address] [facility] Flu Trivalent 2013-09-29 Completed University of 00:00:00 [facility] Influenza Virus 2013-09-29 Completed Universit y of Vaccine (3+ yrs) 00:00:[address] [facility] Flu Trivalent 2013-09-29 Completed University of 00:00:00 [facility] Influenza Virus 2013-09-29 Completed Universit y of Vaccine (3+ yrs) 00:00:[address] [facility] Flu Trivalent 2013-09-29 Completed University of 00:00:00 [facility] Influenza Virus 2013-09-29 Completed Universit y of Vaccine (3+ yrs) 00:00:[address] [facility] Flu Trivalent 2013-09-29 Completed University of 00:00:00 [facility] Influenza Virus 2013-09-29 Completed Universit y of Vaccine (3+ yrs) 00:00:[address] [facility] Flu Trivalent 2013-09-29 Completed University of 00:00:00 [facility] Influenza Virus 2013-09-29 Completed Universit y of Vaccine (3+ yrs) 00:00:[address] [facility] Flu Trivalent 2013-09-29 Completed University of 00:00:00 [facility] Influenza Virus 2013-09-29 Completed Universit y of Vaccine (3+ yrs) 00:00:[address] [facility] Flu Trivalent 2013-09-29 Completed University of 00:00:00 [facility] Influenza Virus 2013-09-29 Completed Universit y of Vaccine (3+ yrs) 00:00:[address] [facility] Flu Trivalent 2013-09-29 Completed University of 00:00:00 [facility] Influenza Virus 2013-09-29 Completed Universit y of Vaccine (3+ yrs) 00:00:[address] [facility] Flu Trivalent 2013-09-29 Completed University of 00:00:00 [facility] Influenza Virus 2013-09-29 Completed Universit y of Vaccine (3+ yrs) 00:00:[address] [facility] Flu Trivalent 2013-09-29 Completed University of 00:00:00 [facility] Influenza Virus 2013-09-29 Completed Universit y of Vaccine (3+ yrs) 00:00:[address] [facility] Flu Trivalent 2013-09-29 Completed University of 00:00:00 [facility] Influenza Virus 2013-09-29 Completed Universit y of Vaccine (3+ yrs) 00:00:[address] [facility] Flu Trivalent 2013-09-29 Completed University of 00:00:00 [facility] Influenza Virus 2013-09-29 Completed Universit y of Vaccine (3+ yrs) 00:00:[address] [facility] Flu Trivalent 2013-09-29 Completed University of 00:00:00 [facility] Influenza Virus 2013-09-29 Completed Universit y of Vaccine (3+ yrs) 00:00:[address] [facility] Flu Trivalent 2013-09-29 Completed University of 00:00:00 [facility] Influenza Virus 2013-09-29 Completed Universit y of Vaccine (3+ yrs) 00:00:[address] [facility] Flu Trivalent 2013-09-29 Completed University of 00:00:00 [facility] Influenza Virus 2013-09-29 Completed Universit y of Vaccine (3+ yrs) 00:00:[address] [facility] Flu Trivalent 2013-09-29 Completed University of 00:00:00 [facility] Influenza Virus 2013-09-29 Completed Universit y of Vaccine (3+ yrs) 00:00:[address] [facility] Flu Trivalent 2013-09-29 Completed University of 00:00:00 [facility] Influenza Virus 2013-09-29 Completed Universit y of Vaccine (3+ yrs) 00:00:[address] [facility] Flu Trivalent 2013-09-29 Completed University of 00:00:00 [facility] Influenza Virus 2012-11-25 Completed Universit y of Vaccine (3+ yrs) 00:00:[address] [facility] Influenza Virus 2012-11-25 Completed Universit y of Vaccine (3+ yrs) 00:00:[address] [facility] Influenza Virus 2012-11-25 Completed Universit y of Vaccine (3+ yrs) 00:00:[address] [facility] Influenza Virus 2012-11-25 Completed Universit y of Vaccine (3+ yrs) 00:00:[address] [facility] Influenza Virus 2012-11-25 Completed Universit y of Vaccine (3+ yrs) 00:00:[address] [facility] Flu Trivalent 2012-11-25 Completed University of 00:00:00 [facility] Influenza Virus 2012-11-25 Completed Universit y of Vaccine (3+ yrs) 00:00:[address] [facility] Flu Trivalent 2012-11-25 Completed University of 00:00:00 [facility] Influenza Virus 2012-11-25 Completed Universit y of Vaccine (3+ yrs) 00:00:[address] [facility] Flu Trivalent 2012-11-25 Completed University of 00:00:00 [facility] Influenza Virus 2012-11-25 Completed Universit y of Vaccine (3+ yrs) 00:00:[address] [facility] Flu Trivalent 2012-11-25 Completed University of 00:00:00 [facility] Influenza Virus 2012-11-25 Completed Universit y of Vaccine (3+ yrs) 00:00:[address] [facility] Flu Trivalent 2012-11-25 Completed University of 00:00:00 [facility] Influenza Virus 2012-11-25 Completed Universit y of Vaccine (3+ yrs) 00:00:[address] [facility] Flu Trivalent 2012-11-25 Completed University of 00:00:00 [facility] Influenza Virus 2012-11-25 Completed Universit y of Vaccine (3+ yrs) 00:00:[address] [facility] Flu Trivalent 2012-11-25 Completed University of 00:00:00 [facility] Influenza Virus 2012-11-25 Completed Universit y of Vaccine (3+ yrs) 00:00:[address] [facility] Flu Trivalent 2012-11-25 Completed University of 00:00:00 [facility] Influenza Virus 2012-11-25 Completed Universit y of Vaccine (3+ yrs) 00:00:[address] [facility] Flu Trivalent 2012-11-25 Completed University of 00:00:00 [facility] Influenza Virus 2012-11-25 Completed Universit y of Vaccine (3+ yrs) 00:00:[address] [facility] Flu Trivalent 2012-11-25 Completed University of 00:00:00 [facility] Influenza Virus 2012-11-25 Completed Universit y of Vaccine (3+ yrs) 00:00:[address] [facility] Flu Trivalent 2012-11-25 Completed University of 00:00:00 [facility] Influenza Virus 2012-11-25 Completed Universit y of Vaccine (3+ yrs) 00:00:[address] [facility] Flu Trivalent 2012-11-25 Completed University of 00:00:00 [facility] Influenza Virus 2012-11-25 Completed Universit y of Vaccine (3+ yrs) 00:00:[address] [facility] Flu Trivalent 2012-11-25 Completed University of 00:00:00 [facility] Influenza Virus 2012-11-25 Completed Universit y of Vaccine (3+ yrs) 00:00:[address] [facility] Flu Trivalent 2012-11-25 Completed University of 00:00:00 [facility] Influenza Virus 2012-11-25 Completed Universit y of Vaccine (3+ yrs) 00:00:[address] [facility] Flu Trivalent 2012-11-25 Completed University of 00:00:00 [facility] Influenza Virus 2012-11-25 Completed Universit y of Vaccine (3+ yrs) 00:00:[address] [facility] Flu Trivalent 2012-11-25 Completed University of 00:00:00 [facility] Influenza Virus 2012-11-25 Completed Universit y of Vaccine (3+ yrs) 00:00:[address] [facility] Flu Trivalent 2012-11-25 Completed University of 00:00:00 [facility] Influenza Virus 2012-11-25 Completed Universit y of Vaccine (3+ yrs) 00:00:[address] [facility] Flu Trivalent 2012-11-25 Completed University of 00:00:00 [facility] Influenza Virus 2012-11-25 Completed Universit y of Vaccine (3+ yrs) 00:00:[address] [facility] Flu Trivalent 2012-11-25 Completed University of 00:00:00 [facility] Influenza Virus 2012-11-25 Completed Universit y of Vaccine (3+ yrs) 00:00:[address] [facility] Flu Trivalent 2012-11-25 Completed University of 00:00:00 [facility] Influenza Virus 2012-11-25 Completed Universit y of Vaccine (3+ yrs) 00:00:[address] [facility] Flu Trivalent 2012-11-25 Completed University of 00:00:00 [facility] Vital Signs Vital Name Observation Time Observation Value Comments Source Systolic blood 2023-05-27 05:00:00 141 mm[Hg] Univer sity of pressure [facility] Diastolic blood 2023-05-27 05:00:00 85 mm[Hg] Unive rsity of pressure [facility] Respiratory rate 2023-05-27 05:00:00 17 /min [facility] Oxygen saturation in 2023-05-27 05:00:00 98 /min University of Arterial blood by [place] [facility] Pulse oximetry Branch Heart rate 2023-05-27 04:01:00 85 /min [facility] Body temperature 2023-05-27 02:51:00 36.06 Pat [facility] Body height 2023-05-27 02:01:00 160 cm [facility] Body weight 2023-05-27 02:01:00 145.151 kg [facility] BMI 2023-05-27 02:01:00 56.69 kg/m2 [facility] [place] [facility] Systolic blood 2023-04-08 14:02:00 119 mm[Hg] Univer [facility]ity of pressure [facility] Branch Diastolic blood 2023-04-08 14:02:00 75 mm[Hg] Unive rsity of pressure [facility] Heart rate 2023-04-08 14:02:00 73 /min [facility] Respiratory rate 2023-04-08 14:02:00 18 /min [facility] Body height 2023-04-08 14:02:00 160 cm [facility] Body weight 2023-04-08 14:02:00 142.792 kg [facility] BMI 2023-04-08 14:02:00 55.76 kg/m2 [facility] Oxygen saturation in 2023-04-08 14:02:00 95 /min [facility] of Arterial blood by [place] [facility] mari Pulse oximetry Branch Systolic blood 2022-10-21 15:09:00 141 mm[Hg] Univer [facility]ity of [facility] Diastolic blood 2022-10-21 15:09:00 81 mm[Hg] Unive [facility]ity of [facility] Heart rate 2022-10-21 15:08:00 84 /min [facility] Body height 2022-10-21 15:08:00 160 cm [facility] Body weight 2022-10-21 15:08:00 151.275 kg [facility] BMI 2022-10-21 15:08:00 59.08 kg/m2 [facility] Oxygen saturation in 2022-10-21 15:08:00 95 /min [facility] blood [facility] [place] [facility] Systolic blood 2022-09-21 15:34:00 151 mm[Hg] Univer [facility]ity [facility] Diastolic blood 2022-09-21 15:34:00 74 mm[Hg] Unive rsity of pressure [facility] Heart rate 2022-09-21 15:33:00 86 /min [facility] Body height 2022-09-21 15:33:00 160 cm [facility] Body weight 2022-09-21 15:33:00 149.778 kg [facility] BMI 2022-09-21 15:33:00 58.49 kg/m2 [facility] Oxygen saturation in 2022-09-21 15:33:00 92 /min [facility] Arterial blood by [facility] Pulse oximetry Branch Systolic blood 2022-08-25 14:59:00 121 mm[Hg] Univer [facility]ity of [facility] Diastolic blood 2022-08-25 14:59:00 75 mm[Hg] Unive [facility]ity of [facility] Heart rate 2022-08-25 14:59:00 108 /min [facility] Body temperature 2022-08-25 14:59:00 36.67 Pat [facility] Body height 2022-08-25 14:59:00 160 cm [facility] Body weight 2022-08-25 14:59:00 146.512 kg [facility] BMI 2022-08-25 14:59:00 57.22 kg/m2 [facility] Oxygen saturation in 2022-08-25 14:59:00 96 /min [facility] Arterial blood by [facility] mari Pulse oximetry Branch Systolic blood 2022-03-18 14:25:00 120 mm[Hg] Univer [facility]ity of [facility] Diastolic blood 2022-03-18 14:25:00 70 mm[Hg] Unive [facility]ity of [facility] Heart rate 2022-03-18 14:25:00 78 /min [facility] Body height 2022-03-18 14:25:00 160 cm Universi ty [facility] Body weight 2022-03-18 14:25:00 150.367 kg Universi ty [facility] BMI 2022-03-18 14:25:00 58.72 kg/m2 [facility] Oxygen saturation in 2022-03-18 14:25:00 95 /min [facility] blood by [facility] Pulse oximetry Branch HEIGHT 2022-01-09 09:38:00 160 cm WEIGHT 2022-01-09 09:38:00 151.501 kg HEIGHT 2022-01-08 12:04:00 160 cm WEIGHT 2022-01-08 12:04:00 149.687 kg HEIGHT 2022-01-09 09:38:00 160 cm WEIGHT 2022-01-09 09:38:00 151.501 kg HEIGHT 2022-01-08 12:04:00 160 cm WEIGHT 2022-01-08 12:04:00 149.687 kg BP Diastolic 2021-08-21 00:00:00 89 mm[Hg] [facility] Height 2021-08-21 00:00:00 63 [in_i] [facility] BMI (Body Mass 2021-08-21 00:00:00 58.1 kg/m2 [facility] BP Systolic 2021-08-21 00:00:00 131 mm[Hg] [facility] Body Weight 2021-08-21 00:00:00 328 [lb_av] [facility] Body weight 2023-04-22 20:39:00 145.3 kg Universi [facility] BMI 2023-04-22 20:39:00 60.48 kg/m2 [facility] Systolic blood 2023-04-22 20:38:13 144 mm[Hg] Univer sity of pressure [facility] Diastolic blood 2023-04-22 20:38:13 81 mm[Hg] Unive rsity of pressure [facility] Heart rate 2023-04-22 20:38:13 91 /min [facility] Body temperature 2023-04-22 20:38:13 36.89 Pat Univ ersity of [facility] Respiratory rate 2023-04-22 20:38:13 20 /min Univ ersity of [facility] Oxygen saturation in 2023-04-22 20:38:13 94 /min University of Arterial blood by Bere rojorson Pulse oximetry [facility] Body height 2023-04-22 [...] /min [facility] Arterial blood by Bere rojorson Pulse oximetry [facility] Systolic blood 2023-03-11 [...] Center Body weight 2023-03-11 16:45:59 138.3 kg [facility] MD [facility] BMI 2023-03-11 16:45:59 57.56 kg/m2 [facility] MD [facility] on [facility] Oxygen saturation in 2023-03-11 16:45:59 93 /min University Arterial blood by Bere valentin Pulse oximetry [facility] Body height 2023-02-06 13:19:00 155 cm [facility] MD [facility] Systolic blood 2022-01-09 13:53:00 157 mm[Hg] [facility] Diastolic blood 2022-01-09 13:53:00 89 mm[Hg] [facility] Heart rate 2022-01-09 13:53:00 80 /min [facility] Body temperature 2022-01-09 13:53:00 36.33 Pat [facility] Respiratory rate 2022-01-09 13:53:00 19 /min [facility] Oxygen saturation in 2022-01-09 13:53:00 93 /min [facility] Arterial blood by [facility] Vera rizo Pulse oximetry Body height 2022-01-09 09:38:00 160 cm [facility] Body weight 2022-01-09 09:38:00 151.501 kg [facility] BMI 2022-01-09 09:38:00 59.17 kg/m2 [facility] Systolic (mm Hg) 2018-04-04 19:53:00 Dillon rial [place] Diastolic (mm Hg) 2018-04-04 19:53:00 Mem orial [place] Respitory Rate 2018-04-04 19:53:00 [facility] [place] Systolic (mm Hg) 2018-04-04 19:41:00 [place] [facility] [place] Diastolic (mm Hg) 2018-04-04 19:41:00 Mem [facility]rial [place] Respitory Rate 2018-04-04 19:41:00 [facility] [place] Systolic (mm Hg) 2018-04-04 18:06:00 [place] [facility] [place] Diastolic (mm Hg) 2018-04-04 18:06:00 Mem [facility] [place] Respitory Rate 2018-04-04 18:06:00 [facility] [place] Weight 2018-04-04 18:04:00 [facility] [place] BMI Calculated 2018-04-04 18:04:00 [facility] [place] Height 2018-03-30 16:54:00 160.02 cm [facility] Respitory Rate 2018-03-21 22:06:00 [facility] [place] Systolic (mm Hg) 2018-03-21 22:06:00 [place] [facility] [place] Diastolic (mm Hg) 2018-03-21 22:06:00 Mem [facility] [place] Respitory Rate 2018-03-21 21:53:00 [facility] [place] Systolic (mm Hg) 2018-03-21 21:53:00 Dillon [facility] [place] Diastolic (mm Hg) 2018-03-21 21:53:00 Mem [facility] [place] Systolic (mm Hg) 2018-03-21 19:08:00 Dillon rial [place] Diastolic (mm Hg) 2018-03-21 19:08:00 Mem [facility] [place] Respitory Rate 2018-03-21 19:08:00 [facility] [place] Height 2018 18:32:00 160.02 cm [facility] [place] Weight 2018 18:32:00 [facility] [place] BMI Calculated 2018 18:32:00 [facility] [place] Weight 2015-11-07 16:05:00 [facility] [place] BMI Calculated 2015-11-07 16:05:00 [facility] [place] Height 2015-11-07 16:05:00 160.02 cm [facility] Procedures Procedure Date / Time Performing Clinician Source Performed CT CHEST PULMONARY ANGIOGRAM 2023-05-27 Destiney Ames Un iversity of 03:53:00 [facility] XR CHEST 1 VW 2023-05-27 Destiney Ames [place] of 02:54:00 [facility] PROTHROMBIN TIME / INR 2023-05-27 Destiney Ames Universi ty of 02:42:00 [facility] TROPONIN I 2023-05-27 Destiney Ames [place] of 02:19:00 [facility] COMP. METABOLIC PANEL (11975) 2023-05-27 Destiney Ames U niversity of 02:19:00 [facility] CBC WITH DIFF 2023-05-27 [facility] 02:19:00 [facility] N-TERMINAL PRO-BNP 2023-05-27 [facility] o f 02:19:00 [facility] NOTICE OF PRIVACY PRACTICES 2023-05-27 Doctor Unassigned, U niversity of 01:53:15 [place] [facility] CONSENT/REFUSAL FOR DIAGNOSIS 2023-05-27 Doctor Unassigned, University of AND TREATMENT 01:51:44 [place] [facility] MRI ORBITS W WO CONTRAST 2023-04-22 [place] [facility] versity of 19:58:00 [place] MD Liane olivier [facility] PROLACTIN 2023-04-22 [place] [facility] o f 17:28:58 Bere olivier [facility] INSULIN LIKE GROWTH FACTOR 1 2023-04-22 [place] [facility] [place] of 17:28:58 Bere olivier [facility] FREE THYROXINE 2023-04-22 [place] [facility] o f 17:28:58 Bere olivier [facility] TOTAL T3 2023-04-22 [place] [facility] o f 17:28:58 Bere olivier [facility] THYROID STIMULATING HORMONE 2023-04-22 [place] [facility] [place] of 17:28:58 Bere olivier [facility] LUTEINIZING HORMONE 2023-04-22 [place] [facility] 17:28:58 Bere olivier [facility] FOLLICLE STIMULATING HORMONE 2023-04-22 [place] [facility] [place] of LEVEL 17:28:58 Bere olivier [facility] ESTRADIOL LEVEL 2023-04-22 [place] [facility] o f 17:28:58 Bere olivier [facility] ADRENOCORTICOTROPIC HORMONE 2023-04-22 [place] [facility] of 17:28:58 Bere olivier [facility] CORTISOL 2023-04-22 [place] [facility] o f 17:28:58 Bere olivier [facility] COMPLETE BLOOD COUNT W/ 2023-04-22 [place] [facility] ersity of DIFFERENTIAL 17:28:58 Bere olivier [facility] ELECTROLYTE PANEL 2023-04-22 [place] 17:28:58 [place] [facility] SERUM CREATININE 2023-04-22 [facility] of 17:28:58 [place] [facility] BLOOD UREA NITROGEN 2023-04-22 [facility] 17:28:58 [place] [facility] SERUM CREATININE 2023-04-22 [facility] of 17:28:58 [place] [facility] .GLOMERULAR FILTRATION RATE 2023-04-22 [place] [facility] of 17:28:58 [place] [facility] Results CBC 2023-04-22 [facility] o f 17:28:58 [place] [facility] MANUAL DIFFERENTIAL 2023-04-22 [place] [facility] ty of 17:28:58 [place] [facility] INSURANCE CORRESPONDENCE 2023-03-12 Doctor Unassigned, Univ ersity of 05:01:00 [place] [facility] COMPLETE BLOOD COUNT W/ 2023-03-11 Lorena Hdez [facility] versity of DIFFERENTIAL 16:15:10 [place] [facility] COMPREHENSIVE METABOLIC PANEL 2023-03-11 Lorena Hdez [place] 16:15:10 [place] [facility] MAGNESIUM LEVEL 2023-03-11 Lorena Hdez [place] of 16:15:10 [place] [facility] Results CBC 2023-03-11 Lorena Hdez [place] of 16:15:10 [place] [facility] MANUAL DIFFERENTIAL 2023-03-11 Lorena Hdez [facility] ity of 16:15:10 [place] [facility] GLUCOSE LEVEL 2023-03-11 Lorena Hdez [place] of 16:15:10 [place] [facility] BLOOD UREA NITROGEN 2023-03-11 Lorena Hdez [facility] ity of 16:15:10 [place] [facility] ELECTROLYTE PANEL 2023-03-11 [facility] 16:15:10 [place] [facility] SERUM CREATININE 2023-03-11 Lorena Hdez [place] 16:15:10 [place] [facility] .GLOMERULAR FILTRATION RATE 2023-03-11 Lorena Hdez [place] of 16:15:10 [place] [facility] CALCIUM LEVEL TOTAL 2023-03-11 Lorena Hdez [facility] ity of 16:15:10 [place] [facility] ALBUMIN LEVEL 2023-03-11 Lorena Hdez [place] 16:15:10 [place] [facility] ALKALINE PHOSPHATASE 2023-03-11 [facility] 16:15:10 [place] [facility] ALANINE AMINOTRANSFERASE 2023-03-11 Lorena Hdez iversity of 16:15:10 [place] [facility] ASPARTATE AMINOTRANSFERASE 2023-03-11 Lorena Hdez [place] of 16:15:10 [place] [facility] TOTAL PROTEIN 2023-03-11 Lorena Hdez [place] of 16:15:10 [place] [facility] FRACTIONATED BILIRUBIN 2023-03-11 [facility] ersity of 16:15:10 [place] [facility] COMPLETE BLOOD COUNT W/ 2023-03-03 Lorena Hdez [facility] versity of DIFFERENTIAL 18:03:40 [place] [facility] COMPREHENSIVE METABOLIC PANEL 2023-03-03 Lorena Hdez University of 18:03:40 [place] [facility] MAGNESIUM LEVEL 2023-03-03 Lorena Hdez [place] 18:03:40 [place] [facility] Results CBC 2023-03-03 Lorena Hdez [place] of 18:03:40 [place] [facility] MANUAL DIFFERENTIAL 2023-03-03 Lorena Hdez [facility] ity of 18:03:40 [place] [facility] GLUCOSE LEVEL 2023-03-03 Lorena Hdez [place] 18:03:40 [place] [facility] BLOOD UREA NITROGEN 2023-03-03 Lorena Hdez [facility] ity of 18:03:40 [place] [facility] ELECTROLYTE PANEL 2023-03-03 [facility] 18:03:40 [place] [facility] SERUM CREATININE 2023-03-03 [facility] of 18:03:40 [place] [facility] .GLOMERULAR FILTRATION RATE 2023-03-03 [facility] 18:03:40 [place] [facility] CALCIUM LEVEL TOTAL 2023-03-[address] [facility] [facility] ity of 18:03:40 [place] [facility] ALBUMIN LEVEL 2023-03-03 Lorena Hdez [facility] of 18:03:40 [place] [facility] ALKALINE PHOSPHATASE 2023-03-03 [facility] sity of 18:03:40 [place] [facility] ALANINE AMINOTRANSFERASE 2023-03-03 [facility] of 18:03:40 [place] [facility] ASPARTATE AMINOTRANSFERASE 2023-03-03 Simona Hdezfer [facility] of 18:03:40 [place] [facility] TOTAL PROTEIN 2023-03-03 Lorena Hdez [facility] of 18:03:40 [place] [facility] FRACTIONATED BILIRUBIN 2023-03-03 HdezSimonaLorenaCentra [facility] ersity of 18:03:40 [place] [facility] POC GLUCOSE SCREEN 2023-02-16 [facility] y of 17:02:00 Ashleigh [facility] ANTI-XA LEVEL 2023-02-16 Felipe, [facility] 16:13:00 Silvia [facility] POC GLUCOSE SCREEN 2023-02-16 [facility] y of 12:20:00 Ashleigh [facility] MAGNESIUM LEVEL 2023-02-16 [facility] 11:15[facility] PHOSPHORUS LEVEL 2023-02-16 [facility] 11:15:00 [facility] COMPLETE BLOOD COUNT W/ 2023-02-16 Noel Floresi ty of DIFFERENTIAL 11:15:00 [facility] COMPREHENSIVE METABOLIC PANEL 2023-02-16 Thao Romero V. Un iversity of 11:15:00 [place] [facility] GLUCOSE LEVEL 2023-02-16 Romero, Thao . [place] 11:15:00 [place] [facility] BLOOD UREA NITROGEN 2023-02-16 Romero, [facility] Brit[facility]. [place] o f 11:15:00 [place] [facility] ELECTROLYTE PANEL 2023-02-16 Thao Romero V. [place] of 11:15:00 [place] [facility] SERUM CREATININE 2023-02-16 Estella [facility] [place] of 11:15:00 [facility] .GLOMERULAR FILTRATION RATE 2023-02-16 Estella Thao Brit[facility]. [facility] ersity of 11:15:00 [place] [facility] CALCIUM LEVEL TOTAL 2023-02-16 RomeroThao dumont V. [place] o f 11:15:00 [place] [facility] ALBUMIN LEVEL 2023-02-16 Thao Romero V. [place] of 11:15:00 [place] [facility] ALKALINE PHOSPHATASE 2023-02-16 Thao Romero . [place] of 11:15:00 [place] [facility] ALANINE AMINOTRANSFERASE 2023-02-16 Estella Thao Britney. Univers ity of 11:15:00 [place] [facility] ASPARTATE AMINOTRANSFERASE 2023-02-16 Romero, Thao Britney. Unive rsity of 11:15:00 [place] [facility] TOTAL PROTEIN 2023-02-16 Thao Romero V. [place] 11:15:00 [place] [facility] FRACTIONATED BILIRUBIN 2023-02-16 Thao Romero V. Universit y of 11:15:00 [place] [facility] Results CBC 2023-02-16 Mark [place] of 11:15:00 [facility] MANUAL DIFFERENTIAL 2023-02-16 Mark [place] o f 11:15:00 [facility] POC GLUCOSE SCREEN 2023-02-16 [facility] o f 02:26:00 Silvia [place] [facility] POC GLUCOSE SCREEN 2023-02-15 [facility] o f 22:30:00 [facility] POC GLUCOSE SCREEN 2023-02-15 [facility] o f 17:15:00 [facility] POC GLUCOSE SCREEN 2023-02-15 [facility] o f 12:03:00 [facility] MAGNESIUM LEVEL 2023-02-15 [facility] 11:24[facility]00 [facility] PHOSPHORUS LEVEL 2023-02-15 [facility] 11:24:00 [facility] COMPLETE BLOOD COUNT W/ 2023-02-15 Mark, [facility] ty of DIFFERENTIAL 11:24:00 [facility] COMPREHENSIVE METABOLIC PANEL 2023-02-15 Thao Romero V. iversity of 11:24:00 [place] [facility] GLUCOSE LEVEL 2023-02-15 Thao Romero V. [place] 11:24:00 [place] [facility] BLOOD UREA NITROGEN 2023-02-15 [facility] 11:24:00 [place] [facility] ELECTROLYTE PANEL 2023-02-15 Thao Romero [facility] of 11:24:00 [place] [facility] SERUM CREATININE 2023-02-15 Thao Romero Rodger [place] of 11:24:00 [place] [facility] .GLOMERULAR FILTRATION RATE 2023-02-15 Th[facility] ersity of 11:24:00 [place] [facility] CALCIUM LEVEL TOTAL 2023-02-15 Thao Romero V. [place] f 11:24:00 [place] [facility] ALBUMIN LEVEL 2023-02-15 Thao Romero V. [place] of 11:24:00 [place] [facility] ALKALINE PHOSPHATASE 2023-02-15 Thao Romero V. [place] of 11:24:00 [place] [facility] ALANINE AMINOTRANSFERASE 2023-02-15 Thao Romero V. [facility] ity of 11:24:00 [place] [facility] ASPARTATE AMINOTRANSFERASE 2023-02-15 Thao Romero V. Unive rsity of 11:24:00 [place] MD Liane olivier [facility] TOTAL PROTEIN 2023-02-15 Thao Romero V. [place] 11:24:00 [facility] Dothanevelin olivier [facility] FRACTIONATED BILIRUBIN 2023-02-15 Thao Romero V. Universit y of 11:24:00 [place] [facility] Results CBC 2023-02-15 Mark [place] 11:24:00 [facility] MANUAL DIFFERENTIAL 2023-02-15 Mark [place] f 11:24:00 [facility] POC GLUCOSE SCREEN 2023-02-15 [facility] o f 02:05:00 [facility] POC GLUCOSE SCREEN 2023-02-14 [facility] o f 22:46:00 [facility] POC GLUCOSE SCREEN 2023-02-14 [facility] o f 16:34:00 [facility] POC GLUCOSE SCREEN 2023-02-14 [facility] o f 13:58:00 [facility] MAGNESIUM LEVEL 2023-02-14 Mark [place] of 11:24:00 [facility] PHOSPHORUS LEVEL 2023-02-14 [facility] 11:24:00 [facility] COMPLETE BLOOD COUNT W/ 2023-02-14 [facility] DIFFERENTIAL 11:24:00 [facility] COMPREHENSIVE METABOLIC PANEL 2023-02-14 Thao Romero V. Un iversity of 11:24:00 [place] [facility] Dothanevelin [facility] GLUCOSE LEVEL 2023-02-14 Thao Romero V. [place] 11:24:00 [place] [facility] Dothanevelin [facility] BLOOD UREA NITROGEN 2023-02-14 Thao Romero V. [place] o f 11:24:00 [facility] Dothane[facility]in [facility] ELECTROLYTE PANEL 2023-02-14 Thao Romero V. [place] 11:24:00 [place] [facility] SERUM CREATININE 2023-02-14 Romero, [facility] of 11:24:00 [place] [facility] .GLOMERULAR FILTRATION RATE 2023-02-14 Th[facility] ersity of 11:24:00 [place] [facility] CALCIUM LEVEL TOTAL 2023-02-14 [facility] f 11:24:00 [place] [facility] ALBUMIN LEVEL 2023-02-14 Thao Romero . [place] 11:24:00 [place] [facility] ALKALINE PHOSPHATASE 2023-02-14 Estella [facility]. [place] of 11:24:00 [place] [facility] ALANINE AMINOTRANSFERASE 2023-02-14 Est[facility] ity of 11:24:00 [place] [facility] ASPARTATE AMINOTRANSFERASE 2023-02-14 Thao [facility]ero [facility] of 11:24:00 [place] [facility] TOTAL PROTEIN 2023-02-14 Thao Romero [facility] of 11:24:00 [place] [facility] FRACTIONATED BILIRUBIN 2023-02-14 [facility] of 11:24:00 [place] [facility] Results CBC 2023-02-14 [facility] 11:24:00 [facility] MANUAL DIFFERENTIAL 2023-02-14 [facility] o f 11:24:00 [facility] POC GLUCOSE SCREEN 2023-02-14 [facility] o f 02:44:00 [facility] POC GLUCOSE SCREEN 2023-02-13 [facility] o f 23:32:00 [facility] POC GLUCOSE SCREEN 2023-02-13 [facility] o f 18:19:00 [facility] POC GLUCOSE SCREEN 2023-02-13 [facility] o f 12:37:00 [facility] MAGNESIUM LEVEL 2023-02-13 [facility] 11:42:00 [facility] PHOSPHORUS LEVEL 2023-02-13 [facility] 11:42:00 [facility] COMPLETE BLOOD COUNT W/ 2023-02-13 Noel Floresi ty of DIFFERENTIAL 11:42:00 [facility] COMPREHENSIVE METABOLIC PANEL 2023-02-13 Thao Romero V. Un iversity of 11:42:00 [place] [facility] GLUCOSE LEVEL 2023-02-13 Thao Romero V. [place] 11:42:00 [place] [facility] BLOOD UREA NITROGEN 2023-02-13 Thao Romero V. [place] f 11:42:00 [place] [facility] ELECTROLYTE PANEL 2023-02-13 Thao Romero V. [place] of 11:42:00 [place] [facility] SERUM CREATININE 2023-02-13 Thao Romero V. [place] of 11:42:00 [place] [facility] .GLOMERULAR FILTRATION RATE 2023-02-13 Th[facility] ersity of 11:42:00 [place] [facility] CALCIUM LEVEL TOTAL 2023-02-13 Thao Romero V. [place] o f 11:42:00 [place] [facility] ALBUMIN LEVEL 2023-02-13 Thao [facility]ero [facility] [place] of 11:42:00 [place] [facility] ALKALINE PHOSPHATASE 2023-02-13 Thao Romero [facility] [place] of 11:42:00 [place] [facility] ALANINE AMINOTRANSFERASE 2023-02-13 Thao Romero V. Univers ity of 11:42:00 [place] [facility] ASPARTATE AMINOTRANSFERASE 2023-02-13 Thao Romero V. Unive rsity of 11:42:00 [place] [facility] TOTAL PROTEIN 2023-02-13 Thao Romero [facility]. [place] of 11:42:00 [facility] FRACTIONATED BILIRUBIN 2023-02-13 Thao Romero V. Universit y of 11:42:00 [place] [facility] Results CBC 2023-02-13 Mark [place] of 11:42:00 [facility] MANUAL DIFFERENTIAL [facility]23-02-13 [facility] 11:42[facility]00 [facility] POC GLUCOSE SCREEN 2023-02-13 [facility], [facility]1983 o f 03:26:00 [facility] POC GLUCOSE SCREEN 2023-02-13 [facility], [facility] o f 00:20:00 [facility] POC GLUCOSE SCREEN 2023-02-12 [facility], [facility] o f 20:06:00 [facility] POC GLUCOSE SCREEN 2023-02-12 [facility], [facility] o f 15:18:00 [facility] GENERAL LABORATORY ADD ON 2023-02-12 Kimberli Cortes sity of TEST 14:33:00 [place] [facility] POC GLUCOSE SCREEN 2023-02-12 [facility], [facility] o f 13:55:00 [facility] MAGNESIUM LEVEL 2023-02-12 [facility] 10:34:00 [facility] PHOSPHORUS LEVEL 2023-02-12 [facility] 10:34:00 [facility] COMPLETE BLOOD COUNT W/ 2023-02-12 Mark [facility] ty of DIFFERENTIAL 10:34:00 [facility] COMPREHENSIVE METABOLIC PANEL 2023-02-12 Thao Romero V. Un iversity of 10:34:00 [place] [facility] GLUCOSE LEVEL 2023-02-12 Thao Romero [facility] [place] of 10:34:00 [place] [facility] BLOOD UREA NITROGEN 2023-02-12 Thao [facility]ero [facility] [place] o f 10:34:00 [place] [facility] ELECTROLYTE PANEL 2023-02-12 Thao Romero [facility] [place] of 10:34:00 [place] [facility] SERUM CREATININE 2023-02-12 Thao Romero V. [place] of 10:34:00 [facility] .GLOMERULAR FILTRATION RATE 2023-02-12 Thao Romero V. Univ ersity of 10:34:00 [facility] CALCIUM LEVEL TOTAL 2023-02-12 Thao Romero [facility] [place] o f 10:34:00 [place] MD Liane olivier [facility] ALBUMIN LEVEL 2023-02-12 Thao Romero [facility] [place] of 10:34:00 [place] MD Rob [facility] ALKALINE PHOSPHATASE 2023-02-12 Thao Romero [facility] [place] of 10:34:00 [place] Liane olivier [facility] ALANINE AMINOTRANSFERASE 2023-02-12 Thao Romero V. [facility] it[facility] of 10:34:00 [facility] ASPARTATE AMINOTRANSFERASE 2023-02-12 Thao Romero V. Unive rsity of 10:34:00 [place] [facility] TOTAL PROTEIN 2023-02-12 [facility] 10:34:00 [facility] Dothanevelin olivier [facility] FRACTIONATED BILIRUBIN 2023-02-12 Thao Romero [facility]. Universit y of 10:34:00 [place] [facility] Results CBC 2023-02-12 [facility] 10[facility]34[facility]00 [facility] MANUAL DIFFERENTIAL 2023-02-12 [facility] o f 10:34:00 [facility] PROCALCITONIN 2023-02-12 [facility] 10:34[facility]00 [facility] [place] [facility] POC GLUCOSE SCREEN 2023-02-12 [facility], [facility] o f 03:16:00 [facility] POC GLUCOSE SCREEN 2023-02-12 [facility], [facility] o f 00:01:00 Silvia [place] [facility] POC GLUCOSE SCREEN 2023-02-11 [facility], [facility] o f 18:59:00 [facility] POC GLUCOSE SCREEN 2023-02-11 [facility], [facility] o f 13:46:00 Silvia [place] Rob [facility] MAGNESIUM LEVEL 2023-02-11 [facility] 10:42:00 [facility] PHOSPHORUS [facility] 2023-02-11 [facility] 10:42:00 [facility] COMPLETE BLOOD COUNT W/ 2023-02-11 Noel Floresi ty of DIFFERENTIAL 10:42:00 [facility] COMPREHENSIVE METABOLIC PANEL 2023-02-11 Thao Romero V. Un iversity of 10:42:00 [place] [facility] GLUCOSE LEVEL 2023-02-11 Thao Romero V. University of 10:42:00 [place] [facility] BLOOD UREA NITROGEN 2023-02-11 Thao Romero V. [facility] o f 10:42:00 [place] [facility] ELECTROLYTE PANEL 2023-02-11 Thao Romero [facility] [place] of 10:42:00 [place] [facility] SERUM CREATININE 2023-02-11 Thao Romero [facility]. [place] of 10:42:00 [place] [facility] .GLOMERULAR FILTRATION RATE 2023-02-11 Thao Romero V. Univ ersity of 10:42:00 [place] [facility] CALCIUM LEVEL TOTAL 2023-02-11 Thao Romero [facility] [place] o f 10:42:00 [place] [facility] ALBUMIN LEVEL 2023-02-11 Thao Romero [facility] [place] of 10:42:00 [place] [facility] ALKALINE PHOSPHATASE 2023-02-11 Thao Romero [facility] [place] of 10:42:00 [place] [facility] ALANINE AMINOTRANSFERASE 2023-02-11 Thao Romero [facility]. [facility] it[facility] of 10:42:00 [place] [facility] ASPARTATE AMINOTRANSFERASE 2023-02-11 Thao Roemro V. Unive rsity of 10:42:00 [place] [facility] TOTAL PROTEIN 2023-02-11 Thao Romero V. University of 10:42:00 [place] [facility] FRACTIONATED BILIRUBIN 2023-02-11 Thao [facility]ero [facility] of 10:42:00 [place] [facility] Results CBC 2023-02-11 Mark [place] of 10:42:00 [facility] MANUAL DIFFERENTIAL 2023-02-11 Mark [place] o f 10:42:00 [facility] CT MAXILLOFACIAL AREA W 2023-02-11 [facility] ity of CONTRAST 09:15:00 [facility] POC GLUCOSE SCREEN 2023-02-11 [facility], [facility] o f 03:42:00 [facility] POC GLUCOSE SCREEN 2023-02-10 [facility], [facility] o f 22:17:00 [facility] POC GLUCOSE SCREEN 2023-02-10 [facility], [facility] o f 17:27:00 [facility] POC GLUCOSE SCREEN 2023-02-10 [facility], [facility] o f 13:52:00 [facility] MAGNESIUM LEVEL 2023-02-10 [facility] 10:43:00 [facility] PHOSPHORUS LEVEL 2023-02-10 [facility] 10:43:00 [facility] COMPLETE BLOOD COUNT W/ 2023-02-10 Mark [facility] ty of DIFFERENTIAL 10:43:00 [facility] COMPREHENSIVE METABOLIC PANEL 2023-02-10 Thao Romero V. iversity of 10:43:00 [place] [facility] GLUCOSE LEVEL 2023-02-10 [facility] 10:43:00 [place] [facility] BLOOD UREA NITROGEN 2023-02-10 [facility] 10:43:00 [place] [facility] ELECTROLYTE PANEL 2023-02-10 Thao Romero [facility] [place] of 10:43:00 [place] [facility] SERUM CREATININE 2023-02-10 Thao Romero V. [place] of 10:43:00 [place] [facility] .GLOMERULAR FILTRATION RATE 2023-02-10 Thao Romero V. Univ ersity of 10:43:00 [place] [facility] CALCIUM LEVEL TOTAL 2023-02-10 Thao Romero [facility] [place] o f 10:43:00 [place] [facility] ALBUMIN LEVEL 2023-02-10 Thao Romero [facility]. [place] of 10:43:00 [place] [facility] ALKALINE PHOSPHATASE 2023-02-10 Thao Romero V. University of 10:43:00 [place] Liane olivier [facility] ALANINE AMINOTRANSFERASE 2023-02-10 Thao Romero V. [facility] ity of 10:43:00 [place] [facility] ASPARTATE AMINOTRANSFERASE 2023-02-10 Thao Romero V. Unive rsity of 10:43:00 [place] [facility] TOTAL PROTEIN 2023-02-10 Thao Romero V. University of 10:43:00 [place] [facility] FRACTIONATED BILIRUBIN 2023-02-10 Thao Romero [facility]. [facility]it [facility] of 10:43:00 [place] [facility] Results CBC 2023-02-10 Mark [place] of 10:43:00 [facility] MANUAL DIFFERENTIAL 2023-02-10 Mark [place] o f 10:43:00 [facility] POC GLUCOSE SCREEN 2023-02-10 [facility], [facility] o f 03:27:00 [facility] POC GLUCOSE SCREEN 2023-02-09 [facility], [facility] o f 22:11:00 [facility] POC GLUCOSE SCREEN 2023-02-09 [facility], [facility] o f 18:18:00 [facility] POC GLUCOSE SCREEN 2023-02-09 [facility], [facility] o f 13:12:00 [facility] MAGNESIUM LEVEL 2023-02-09 Mark [place] of 10:37:00 [facility] PHOSPHORUS LEVEL 2023-02-09 Mark [place] of 10:37:00 [facility] COMPLETE BLOOD COUNT W/ 2023-02-09 [facility] DIFFERENTIAL 10:37:00 [facility] COMPREHENSIVE METABOLIC PANEL 2023-02-09 Thao Romero V. Un iversity of 10:37:00 [place] [facility] CREATINE KINASE 2023-02-09 Shelby José [place] of 10:37:00 [place] [facility] GLUCOSE LEVEL 2023-02-09 Thao Romero V. [place] of 10:37:00 [place] [facility] BLOOD UREA NITROGEN 2023-02-09 Thao Romero [facility] [place] o f 10:37:00 [place] [facility] ELECTROLYTE PANEL 2023-02-09 Thao Romero V. [place] of 10:37:00 [place] [facility] SERUM CREATININE 2023-02-09 Thao Romero V. [place] of 10:37:00 [place] [facility] .GLOMERULAR FILTRATION RATE 2023-02-09 [facility] ersity of 10:37:00 [place] [facility] CALCIUM LEVEL TOTAL 2023-02-09 Thao Romero [facility] [place] o f 10:37:00 [place] [facility] ALBUMIN LEVEL 2023-02-09 Thao Romero V. [place] of 10:37:00 [place] [facility] ALKALINE PHOSPHATASE 2023-02-09 Thao Romero V. [place] of 10:37:00 [place] [facility] ALANINE AMINOTRANSFERASE 2023-02-09 Thoa Romero V Univers ity of 10:37:00 [place] [facility] ASPARTATE AMINOTRANSFERASE 2023-02-09 Thao Romero V. Unive rsity of 10:37:00 [place] [facility] TOTAL PROTEIN 2023-02-09 [facility] 10:37:00 [place] [facility] FRACTIONATED BILIRUBIN 2023-02-09 Thao Romero V. [facility]it y of 10:37:00 [place] [facility] Results CBC 2023-02-09 [facility] 10:37[facility]00 [facility] MANUAL DIFFERENTIAL 2023-02-09 Mark [place] [facility] f 10:37:00 [facility] POC GLUCOSE SCREEN 2023-02-09 Derrick Gill Universi ty of 03:21:00 [place] [facility] POC GLUCOSE SCREEN 2023-02-08 Derrick Gill Universi ty of 23:32:00 [place] [facility] US ARM VENOUS DOPPLER 2023-02-08 Derrick Gill Unive rsity of BILATERAL 23:28:54 Bere Rob [facility] ECHOCARDIOGRAM 2D COMPLETE W 2023-02-08 Thao Romero V. Uni versity of CONTRAST 19:23:53 Bere olivier [facility] POC GLUCOSE SCREEN 2023-02-08 Derrick Gill Universi ty of 17:21:00 Bere GRIFFIN [facility] POC GLUCOSE SCREEN 2023-02-08 Derrick Gill Universi ty of 12:46:00 [place] [facility] MAGNESIUM LEVEL 2023-02-08 [facility] 11:14:00 [facility] PHOSPHORUS LEVEL 2023-02-08 [facility] of 11:14:00 [facility] COMPLETE BLOOD COUNT W/ 2023-02-08 [facility] DIFFERENTIAL 11:14:00 [place] Bere GRIFFIN [facility] COMPREHENSIVE METABOLIC PANEL 2023-02-08 Thao Romero V. Un iversity of 11:14:00 [facility]UCOSE LEVEL 2023-02-08 Thao Romero V. [place] of 11:14:00 Bere GRIFFIN [facility] BLOOD UREA NITROGEN 2023-02-08 Thao Romero V. [place] o f 11:14:00 Bere olivier [facility] ELECTROLYTE PANEL 2023-02-08 Thao Romero V. [place] of 11:14:00 Bere GRIFFIN [facility] SERUM CREATININE 2023-02-08 Thao Romero V. [place] of 11:14:00 Bere GRIFFIN [facility] .GLOMERULAR FILTRATION RATE 2023-02-08 Thao Romero V. Univ ersity of 11:14:00 Bere Rob [facility] CALCIUM LEVEL TOTAL 2023-02-08 Thao Romero V. [place] o f 11:14:00 Bere [facility] ALBUMIN L[facility]EL 2023-02-08 Thao Romero V. [place] of 11:14:00 Bere GRIFFIN [facility] ALKALINE PHOSPHATASE 2023-02-08 Thao Romero V. [place] of 11:14:00 Bere Millererso n [facility] ALANINE AMINOTRANSFERASE 2023-02-08 Thao Romero V. Univers ity of 11:14:00 [place] MD Rob [facility] ASPARTATE AMINOTRANSFERASE 2023-02-08 Thao Romero V. Unive rsity of 11:14:00 [place] [facility] D[facility]velin olivier [facility] TOTAL PROTEIN 2023-02-08 Thao Romero V. [place] of 11:14:00 [place] Liane olivier [facility] FRACTIONATED BILIRUBIN 2023-02-08 Thao Romero V. Universit y of 11:14:00 [place] [facility] Dothanevelin olivier [facility] Results CBC 2023-02-08 [facility] 11:14:00 [facility] MANUAL DIFFERENTIAL 2023-02-08 [facility] f 11:14:00 [facility] POC GLUCOSE SCREEN 2023-02-08 Cortes-Dellan, Derrick Universi ty of 02:47:00 [place] MD Rob [facility] POC GLUCOSE SCREEN 2023-02-08 Cortes-Dellan, Derrick Universi ty of 00:12:00 [place] [facility] P[facility] GLUCOSE SCREEN 2023-02-07 Cortes-Dellan, Derrick Universi ty of 22:43:00 [place] [facility] POC GLUCOSE SCREEN 2023-02-07 Cortes-Dellan, Derrick Universi ty of 18:16:00 [place] [facility] P[facility] GLUCOSE SCREEN 2023-02-07 Cortes-Dellan, Derrick Universi ty of 13:48:00 [place] Liane olivier [facility] BLOODCULTURE 2023-02-07 [facility] of 11:52:00 [place] MD Liane olivier [facility] HIV 1/2 ANTIGEN/ANTIBODY, 2023-02-07 [facility] sity of FOURTH GEN W/RFL 11:52:00 [place] MD Carreon [facility] HEPATITIS B SURFACE ANTIGEN, 2023-02-07 Thao Romero V. Uni versity of SERUM 11:52:00 Bere olivier [facility] HEPATITIS B CORE ANTIBODY 2023-02-07 [facility] sity of 11:52:00 Bere Rob [facility] HEPATITIS C VIRUS AB SCREEN 2023-02-07 Thao Romero V. Univ ersity of W/REFLEX HCV PCR 11:52:00 Bere [facility] FERRITIN LVL 2023-02-07 Thao Romero V. [place] of 11:52:00 Bere olivier [facility] TRANSFERRIN 2023-02-07 Thao Romero V. [place] of 11:52:00 [place] [facility] IRON L[facility]EL 2023-02-07 Thao Romero V. [place] of 11:52:00 [place] [facility] MAGNESIUM LEVEL 2023-02-07 [facility] 11:52:00 [facility] PHOSPHORUS LEVEL 2023-02-07 [facility] 11:52:00 [facility] COMPLETE BLOOD COUNT W/ 2023-02-07 Mark, [facility] ty of DIFFERENTIAL 11:52:00 [place] Bere GRIFFIN [facility] COMPREHENSIVE METABOLIC PANEL 2023-02-07 Thao Romero V. Un iversity of 11:52:00 [place] [facility] LIPID PANEL 2023-02-07 Thao Romero V. [place] of 11:52:00 [place] [facility] HEMOGLOBIN A1C 2023-02-07 Thao Romero V. [place] of 11:52:00 Bere Rob [facility] GLUCOSE LEVEL 2023-02-07 Thao Romero V. [place] of 11:52:00 [facility] BLOOD UREA NITROGEN 2023-02-07 Thao Romero V. University o f 11:52:00 [place] [facility] ELECTROLYTE PANEL 2023-02-07 Thao Romero V. [place] of 11:52:00 [place] [facility] SERUM CREATININE 2023-02-07 Thao Romero V. [place] of 11:52:00 [place] [facility] .GLOMERULAR FILTRATION RATE 2023-02-07 Thao Romero V. Univ ersity of 11:52:00 Bere Rob [facility] CALCIUM LEVEL TOTAL 2023-02-07 Thao Romero V. University o f 11:52:00 [place] MD [facility] ALBUMIN LEVEL 2023-02-07 Thao Romero V. [place] of 11:52:00 [place] [facility] ALKALINE PHOSPHATASE 2023-02-07 Thao Romero V. [place] of 11:52:00 [place] [facility] ALANINE AMINOTRANSFERASE 2023-02-07 Thao Romero V. Univers ity of 11:52:00 [place] [facility] ASPARTATE AMINOTRANSFERASE 2023-02-07 Thao Romero V. Unive rsity of 11:52:00 [place] [facility] TOTAL PROTEIN 2023-02-07 Thao Romero V. [place] of 11:52:00 [place] [facility] FRACTIONATED BILIRUBIN 2023-02-07 [facility] 11:52:00 [facility] Results CBC 2023-02-07 Mark [place] of 11:52:00 [facility] MANUAL DIFFERENTIAL 2023-02-07 Mark [place] o f 11:52:00 [facility] C. DIFFICILE DNA DETECTION 2023-02-07 [facility] rsity of 10:18:00 [place] [facility] C DIFFICILE DNA ASSAY PATH 2023-02-07 Thao Romero rsity of REVIEW 10:18:00 [place] [facility] GASTROINTESTINAL MULTIPLEX 2023-02-07 [facility] rsity of PCR PANEL 10:16:00 [facility] GASTROINTESTINAL MULTIPLEX 2023-02-07 [facility] rsity of PANEL PATH REVIEW 10:16:00 [place] MD Ruelas [facility] POC GLUCOSE SCREEN 2023-02-07 [facility] 03:51:00 [place] [facility] POC GLUCOSE SCREEN 2023-02-07 Thao Romero V. [place] of 00:28:00 [facility] EKG, 12-LEAD (PORTABLE) 2023-02-07 Irina Houston ity of 00:00:00 [facility] POC GLUCOSE SCREEN 2023-02-06 Thao Romero V. [place] of 22:13:00 [place] Liane olivier [facility] POC GLUCOSE SCREEN 2023-02-06 Thao Romero V. [place] of 19:18:00 [place] Liane olivier [facility] POC GLUCOSE SCREEN 2023-02-06 [facility] 18:26:00 [place] [facility] GENERAL LABORATORY ADD ON 2023-02-06 Thao Romero V. [facility] sity of TEST 16:44:00 [place] [facility] 2023-02-06 [facility] 16:11:00 [facility] POC GLUCOSE SCREEN 2023-02-06 StevoAmanda [place] of 14:46:00 [place] [facility] POC GLUCOSE SCREEN 2023-02-06 [facility] 12:40:00 [place] [facility] POC GLUCOSE SCREEN 2023-02-06 [facility] 08:20:00 [place] [facility] BASIC METABOLIC PANEL, 2023-02-06 Noel Floresit y of CALCIUM TOTAL 08:05:00 [facility] MAGNESIUM LEVEL 2023-02-06 [facility] 08:05:00 [facility] PHOSPHORUS LEVEL 2023-02-06 [facility] 08:05:00 [facility] COMPLETE BLOOD COUNT W/ 2023-02-06 Noel Floresi ty of DIFFERENTIAL 08:05:00 [facility] GLUCOSE LEVEL 2023-02-06 [facility] 08:05:00 [place] [facility] BLOOD UREA NITROGEN 2023-02-06 [facility] 08:05:00 [place] [facility] ELECTROLYTE PANEL 2023-02-06 [facility] 08:05:00 [place] [facility] SERUM CREATININE 2023-02-06 [facility] 08:05:00 [place] [facility] .GLOMERULAR FILTRATION RATE 2023-02-06 Cathie Meneses Uni versity of 08:05:00 [place] [facility] CALCIUM LEVEL TOTAL 2023-02-06 [facility] 08:05:00 [place] [facility] Results CBC 2023-02-06 [facility] 08:05:00 [place] [facility] soy [facility] MANUAL DIFFERENTIAL 2023-02-06 [facility] 08:05:00 [place] [facility] NT PRO BNP 2023-02-06 [facility] 08:05:00 [place] [facility] PROCALCITONIN 2023-02-06 [facility] 08:05:00 [place] [facility] C REACTIVE PROTEIN 2023-02-06 Cathie Meneses [place] o f 08:05:00 [place] [facility] POC GLUCOSE SCREEN 2023-02-06 Amanda Proctor 06:17:00 [place] [facility] TROPONIN T 2023-02-06 [facility] 06:09:00 [place] [facility] URINE CULTURE 2023-02-06 CelsoIrina olivier [facility] 05:40:00 [place] [facility] PROTHROMBIN TIME 2023-02-06 [facility] of 01:26:00 [place] [facility] APTT 2023-02-06 [facility] 01:26:00 [place] [facility] D DIMER 2023-02-06 [facility] 01:26:00 [place] [facility] LACTIC ACID, VENOUS 2023-02-06 [facility] o f 01:26:00 [place] [facility] XR ABDOMEN AP 2023-02-05 Amanda Proctor of 23:59:27 [facility] XR CHEST 1 VW 2023-02-05 Amanda Proctor of 23:57:49 [place] [facility] COVID-19 (SARS-COV-2) PCR - 2023-02-05 Amanda Proctor ersity of ASYMPTOMATIC - LT 22:09:00 [place] [facility] POC GLUCOSE SCREEN 2023-02-05 Deneen Guevara [place] of 21:27:00 [place] Liane olivier [facility] BLOODCULTURE 2023-02-05 Stevos, Amanda Haq of 20:39:00 [place] Liane olivier [facility] BLOODCULTURE 2023-02-05 Stevos, Amanda Haq of 20:30:00 [place] [facility] Dothanevelin olivier [facility] COMPLETE BLOOD COUNT W/ 2023-02-05 Esthela, [facility] of DIFFERENTIAL 20:30:00 [place] Liane olivier [facility] MAGNESIUM LEVEL 2023-02-05 Stevos, Amanda Haq of 20:30:00 [place] Liane olivier [facility] PHOSPHORUS LEVEL 2023-02-05 Stevos, Amanda Haq of 20:30:00 [place] Liane olivier [facility] NT PRO BNP 2023-02-05 Stevos, Amanda Haq of 20:30:00 [place] Liane olivier [facility] TROPONIN T 2023-02-05 Stevos, Amanda Haq of 20:30:00 [place] Liane olivier [facility] CREATINE KINASE 2023-02-05 Stevos, Amanda Haq of 20:30:00 [place] [facility] Dothanevelin olivier [facility] CKMB 2023-02-05 Stevos, Amanda Haq of 20:30:00 [place] Liane olivier [facility] C REACTIVE PROTEIN 2023-02-05 Stevos, Amanda Haq of 20:30:00 [place] Liane olivier [facility] COMPREHENSIVE METABOLIC PANEL 2023-02-05 Amanda Proctor iversity of 20:30:00 [place] Liane olivier [facility] PROCALCITONIN 2023-02-05 Stevos, Amanda Haq of 20:30:00 [place] Liane olivier [facility] AMYLASE LEVEL 2023-02-05 Stevos, Amanda Haq of 20:30:00 [place] MD Liane olivier [facility] LIPASE LEVEL 2023-02-05 Esthela, Amanda Haq of 20:30:00 [place] MD Liane olivier [facility] Results CBC 2023-02-05 Stevos, Amanda Haq of 20:30:00 [place] MD Liane olivier [facility] MANUAL DIFFERENTIAL 2023-02-05 Esthela, Amanda Haq o f 20:30:00 [place] MD Liane olivier [facility] GLUCOSE LEVEL 2023-02-05 Amanda Proctor of 20:30:00 [place] [facility] BLOOD UREA NITROGEN 2023-02-05 Esthela, Amanda [place] o f 20:30:00 [place] MD Carreon soy [facility] ELECTROLYTE PANEL 2023-02-05 Amanda Proctor [place] of 20:30:00 [place] [facility] SERUM CREATININE 2023-02-05 Esthela, Amanda [place] of 20:30:00 [place] [facility] .GLOMERULAR FILTRATION RATE 2023-02-05 Amanda [facility]ctor [facility] ersity of 20:30:00 [place] [facility] CALCIUM LEVEL TOTAL 2023-02-05 Amanda Proctor o f 20:30:00 [place] [facility] ALBUMIN LEVEL 2023-02-05 Amanda Proctor [place] of 20:30:00 [place] [facility] ALKALINE PHOSPHATASE 2023-02-05 Amanda Proctor [place] of 20:30:00 [place] [facility] ALANINE AMINOTRANSFERASE 2023-02-05 Amanda Proctor [facility] ity of 20:30:00 [place] [facility] ASPARTATE AMINOTRANSFERASE 2023-02-05 Amanda Proctor [facility] rsity of 20:30:00 [place] [facility] TOTAL PROTEIN 2023-02-05 Amanda Proctor [place] of 20:30:00 [place] [facility] FRACTIONATED BILIRUBIN 2023-02-05 [facility] 20:30:00 [place] [facility] URINALYSIS MICROSCOPIC 2023-02-05 Irina [facility] ty of 05:39:00 [place] [facility] EKG, 12-LEAD (PORTABLE) 2023-02-05 [facility] of 00:00:00 [place] [facility] COMPREHENSIVE METABOLIC PANEL 2023-02-04 Vaibhav Rosario of 17:33:52 [place] [facility] COMPLETE BLOOD COUNT W/ 2023-02-04 Vaibhav Rosario rsity of DIFFERENTIAL 17:33:52 [place] [facility] MAGNESIUM LEVEL 2023-02-04 Cox JannetVaibhav lopez [place] of 17:33:52 Bere olivier [facility] PHOSPHORUS LEVEL 2023-02-04 Cox Ajnnet, [facility] o f 17:33:52 Bere olivier [facility] GLUCOSE LEVEL 2023-02-04 Kenny Power [facility] [place] of 17:33:52 Bere olivier [facility] BLOOD UREA NITROGEN 2023-02-04 [facility] y of 17:33:52 Bere olivier [facility] ELECTROLYTE PANEL 2023-02-04 Cox Jannet, [facility] of 17:33:52 Bere olivier [facility] SERUM CREATININE 2023-02-04 [place], [facility] o f 17:33:52 Bere olivier [facility] .GLOMERULAR FILTRATION RATE 2023-02-04 Vaibhav Rosario niversity of 17:33:52 Bere olivier [facility] CALCIUM LEVEL TOTAL 2023-02-04 [facility] [place], [facility] y of 17:33:52 Bere olivier [facility] ALBUMIN LEVEL 2023-02-04 [facility] of 17:33:52 Bere olivier [facility] ALKALINE PHOSPHATASE 2023-02-04 [facility] ty of 17:33:52 Bere olivier [facility] ALANINE AMINOTRANSFERASE 2023-02-04 Vaibhav Rosario [facility] ersity of 17:33:52 Bere olivier [facility] ASPARTATE AMINOTRANSFERASE 2023-02-04 Vaibhav Rosario iversity of 17:33:52 Bere olivier [facility] TOTAL PROTEIN 2023-02-04 Kenny Jannet, [facility] [place] of 17:33:52 Bere olivier [facility] FRACTIONATED BILIRUBIN 2023-02-04 Cox Jannet, [facility] sity of 17:33:52 Bere olivier [facility] Results CBC 2023-02-04 Vaibhav Rosario [place] of 17:33:52 Bere olivier [facility] [place] MANUAL DIFFERENTIAL 2023-02-[address] [facility] [place] [place] y of 17:33:52 Bere olivier [facility] POC GLUCOSE SCREEN 2023-02-01 Simbaqueba Saurabh, Universit y of 18:19:00 [facility]ian [facility] POC GLUCOSE SCREEN 2023-02-01 Simbaradha Deshpande, Universit y of 12:47:00 Elian olivier [facility] BASIC METABOLIC PANEL, 2023-02-01 [facility] y of CALCIUM TOTAL 09:00:00 [place] MD Liane olivier [facility] MAGNESIUM LEVEL 2023-02-01 [facility] of 09:00:00 [place] MD Liane olivier [facility] PHOSPHORUS LEVEL 2023-02-01 [facility] of 09:00:00 [place] MD Liane olviier [facility] COMPLETE BLOOD COUNT W/ 2023-02-01 [facility] ty of DIFFERENTIAL 09:00:00 [place] MD Liane olivier [facility] GLUCOSE LEVEL 2023-02-01 [facility] of 09:00:00 [place] MD Rob [facility] BLOOD UREA NITROGEN 2023-02-01 [facility] o f 09:00:00 [place] MD Liane olivier [facility] ELECTROLYTE PANEL 2023-02-01 [facility] of 09:00:00 [place] [facility] SERUM CREATININE 2023-02-01 [facility] of 09:00:00 [place] MD Rob [facility] .GLOMERULAR FILTRATION RATE 2023-02-01 [facility] ersity of 09:00:00 [place] MD Liane olivier [facility] CALCIUM LEVEL TOTAL 2023-02-01 [facility] o f 09:00:00 Bere olivier [facility] Results CBC 2023-02-01 [facility] of 09:00:00 [place] MD Liane olivier [facility] MANUAL DIFFERENTIAL 2023-02-01 [facility] o f 09:00:00 Bere olivier [facility] POC GLUCOSE SCREEN 2023-02-01 Simbaradha Deshpande, Universit y of 02:36:00 [facility]ian [facility] POC GLUCOSE SCREEN 2023-01-31 Simbaradha Deshpande, Universit y of 21:55:00 [facility] POC GLUCOSE SCREEN 2023-01-31 Simmarisa Deshpande, Universit y of 17:13:00 Elian [place] MD Liane [facility] POC GLUCOSE SCREEN 2023-01-31 Kt Deshpande, Universit y of 13:08:00 Eliansuzi olivier [facility] BASIC METABOLIC PANEL, 2023-01-31 [facility] y of CALCIUM TOTAL 08:15:00 [place] MD Liane olivier [facility] MAGNESIUM LEVEL 2023-01-31 [facility] of 08:15:00 [place] Liane olivier [facility] PHOSPHORUS LEVEL 2023-01-31 [facility] of 08:15:00 [place] [facility] Dothanevelin olivier [facility] COMPLETE BLOOD COUNT W/ 2023-01-31 [facility] ty of DIFFERENTIAL 08:15:00 [place] MD Liane olivier [facility] GLUCOSE LEVEL 2023-01-31 [facility] of 08:15:00 [place] MD Rob [facility] BLOOD UREA NITROGEN 2023-01-31 [facility] o f 08:15:00 [place] MD Liane olivier [facility] ELECTROLYTE PANEL 2023-01-31 [facility] of 08:15:00 [place] [facility] SERUM CREATININE 2023-01-31 [facility] of 08:15:00 [place] [facility] Dothanevelin [facility] .GLOMERULAR FILTRATION RATE 2023-01-31 [facility] ersity of 08:15:00 [place] MD Liane olivier [facility] CALCIUM LEVEL TOTAL 2023-01-31 [facility] o f 08:15:00 [place] MD Liane olivier [facility] Results CBC 2023-01-31 [facility] of 08:15:00 [place] MD Liane olivier [facility] MANUAL DIFFERENTIAL 2023-01-31 [facility] o f 08:15:00 [place] MD Liane ol[facility]ier [facility] POC GLUCOSE SCREEN 2023-01-31 Kt Deshpande, Universit y of 02:23:00 Elian [place] MD Liane [facility] POC GLUCOSE SCREEN 2023-01-30 Kt Deshpande Universit y of 22:38:00 Elian [place] MD Liane [facility] POC GLUCOSE SCREEN 2023-01-30 Kt Deshpande, Universit y of 17:51:00 Elian [place] MD Liane olivier [facility] POC GLUCOSE SCREEN 2023-01-30 Kt Deshpande Universit y of 14:45:00 [facility] MD [facility] BASIC METABOLIC PANEL, 2023-01-30 [facility] y of CALCIUM TOTAL 08:14:00 [place] MD Liane olivier [facility] MAGNESIUM LEVEL 2023-01-30 [facility] of 08:14:00 [place] [facility] Dothanevelin [facility] PHOSPHORUS LEVEL 2023-01-30 [facility] of 08:14:00 [place] [facility] COMPLETE BLOOD COUNT W/ 2023-01-30 [facility] ty of DIFFERENTIAL 08:14:00 [place] MD Liane olivier [facility] GLUCOSE LEVEL 2023-01-30 [facility] of 08:14:00 [place] [facility] BLOOD UREA NITROGEN 2023-01-30 [facility] o f 08:14:00 [place] MD Liane olivier [facility] ELECTROLYTE PANEL 2023-01-30 [facility] of 08:14:00 [place] [facility] SERUM CREATININE 2023-01-30 [facility] of 08:14:00 [place] [facility] .GLOMERULAR FILTRATION RATE 2023-01-30 [facility] ersity of 08:14:00 [place] [facility] CALCIUM LEVEL TOTAL 2023-01-30 [facility] o f 08:14:00 [place] MD Liane olivier [facility] Results CBC 2023-01-30 [facility] of 08:14:00 [place] MD Liane olivier [facility] MANUAL DIFFERENTIAL 2023-01-30 [facility] o f 08:14:00 [place] MD Liane olivier [facility] POC GLUCOSE SCREEN 2023-01-30 Kt Deshpande Universjohn y of 02:40:00 Elian [place] MD Liane [facility] POC GLUCOSE SCREEN 2023-01-30 Kt Deshpande Universit y of 00:24:00 Elian [place] MD Rob [facility] POC GLUCOSE SCREEN 2023-01-29 Kt Deshpande Universit y of 22:51:00 Elian olivier [facility] VERIFY CATHETER TIP PLACEMENT 2023-01-29 Justo Banuelos [place] of 20:08:01 Bere olivier [facility] XR CHEST 1 VW POST IMPLANT 2023-01-29 Kt Deshpande U niversity of 19:59:15 Elian olivier [facility] INSERT VASCULAR ACCESS DEVICE 2023-01-29 Kt Deshpande [place] of 19:04:31 Elian olivier [facility] POC GLUCOSE SCREEN 2023-01-29 Kt Deshpande Univers y of 19:04:00 Elian olivier [facility] POC GLUCOSE SCREEN 2023-01-[address] [facility] [place] [place] y of 13:50:00 Elian olivier [facility] BASIC METABOLIC PANEL, 2023-01-29 [facility] y of CALCIUM TOTAL 08:33:00 [place] MD Liane olivier [facility] MAGNESIUM LEVEL 2023-01-29 [facility] of 08:33:00 [place] MD Liane olivier [facility] PHOSPHORUS LEVEL 2023-01-29 [facility] of 08:33:00 [place] MD Liane olivier [facility] COMPLETE BLOOD COUNT W/ 2023-01-29 [facility] ty of DIFFERENTIAL 08:33:00 Bere olivier [facility] GLUCOSE LEVEL 2023-01-29 Nabeel [facility] of 08:33:00 Bere Rob [facility] BLOOD UREA NITROGEN 2023-01-29 [facility] o f 08:33:00 [place] MD Liane olivier [facility] ELECTROLYTE PANEL 2023-01-29 [facility] of 08:33:00 [place] MD Liane olivier [facility] SERUM CREATININE 2023-01-29 [facility] of 08:33:00 [place] MD Rob [facility] .GLOMERULAR FILTRATION RATE 2023-01-29 Nabeel [facility] ersity of 08:33:00 [place] MD Liane olivier [facility] CALCIUM LEVEL TOTAL 2023-01-29 [facility] o f 08:33:00 [place] MD Liane olivier [facility] Results CBC 2023-01-29 Nabeel [facility] of 08:33:00 [place] MD Liane olivier [facility] MANUAL DIFFERENTIAL 2023-01-29 Nabeel [facility] o f 08:33:00 [place] MD Liane olivier [facility] POC GLUCOSE SCREEN 2023-01-29 Simbaqueba Saurabh, Universit y of 03:21:00 Elian [place] MD Liane [facility] POC GLUCOSE SCREEN 2023-01-28 Simbaqueba Saurabh, Universit y of 23:27:00 Elian [place] MD Liane [facility] POC GLUCOSE SCREEN 2023-01-28 Simbaqueba Saurabh, Universit y of 17:57:00 Elian [place] MD Liane olivier [facility] POC GLUCOSE SCREEN 2023-01-28 Simbaqueba Saurabh, Universit y of 15:38:00 [facility] MD Liane olivier [facility] HEMOGLOBIN 2023-01-28 [facility] of 13:24:00 [place] MD Liane olivier [facility] HEMATOCRIT 2023-01-28 [facility] of 13:24:00 [place] MD Liane olivier [facility] POC GLUCOSE SCREEN 2023-01-28 Simbaqueba Saurabh, Universit y of 13:17:00 [facility] MD Liane olivier [facility] HEMOGLOBIN 2023-01-28 [facility] of 08:00:00 [place] MD Liane olivier [facility] HEMATOCRIT 2023-01-28 [facility] of 08:00:00 [place] MD Liane olivier [facility] BASIC METABOLIC PANEL, 2023-01-[address] [facility] [place] [place] y of CALCIUM TOTAL 08:00:00 [place] MD Liane olivier [facility] MAGNESIUM LEVEL 2023-01-28 Nabeel [facility] of 08:00:00 [place] MD Liane olivier [facility] PHOSPHORUS LEVEL 2023-01-28 Nabeel [facility] of 08:00:00 [place] MD Liane olivier [facility] COMPLETE BLOOD COUNT W/ 2023-01-28 Nabeel [facility] ty of DIFFERENTIAL 08:00:00 [place] MD Liane olivier [facility] GLUCOSE LEVEL 2023-01-28 Nabeel [facility] of 08:00:00 [place] MD Liane olivier [facility] BLOOD UREA NITROGEN 2023-01-28 [facility] o f 08:00:00 [place] MD Liane olivier [facility] ELECTROLYTE PANEL 2023-01-28 [facility] of 08:00:00 [place] MD Liane olivier [facility] SERUM CREATININE 2023-01-28 [facility] of 08:00:00 [place] MD Liane olivier [facility] .GLOMERULAR FILTRATION RATE 2023-01-28 [facility] ersity of 08:00:00 [place] MD Liane olivier [facility] CALCIUM LEVEL TOTAL 2023-01-28 [facility] o f 08:00:00 [place] MD Liane olivier [facility] Results CBC 2023-01-28 [facility] of 08:00:00 [place] MD Liane olivier [facility] MANUAL DIFFERENTIAL 2023-01-28 [facility] o f 08:00:00 [place] MD Liane olivier [facility] POC GLUCOSE SCREEN 2023-01-28 [facility] 03:34:00 Jaycee [place] [facility]OC GLUCOSE SCREEN 2023-01-28 [facility] 00:42:00 Jaycee [place] MD Liane olivier [facility] HEMOGLOBIN 2023-01-27 [facility] of 21:15:00 [place] MD Liane olivier [facility] HEMATOCRIT 2023-01-27 [facility] of 21:15:00 [place] MD Liane olivier [facility] POC GLUCOSE SCREEN 2023-01-27 [facility] of 19:38:00 Jaycee [place] MD Liane olivier [facility] POC GLUCOSE SCREEN 2023-01-27 [facility] of 16:11:00 [place] MD Liane olivier [facility] POC GLUCOSE SCREEN 2023-01-27 [facility] of 13:43:00 [place] MD Liane olivier [facility] BASIC METABOLIC PANEL, 2023-01-27 [facility] CALCIUM TOTAL 07:48:00 [place] MD Liane olivier [facility] MAGNESIUM LEVEL 2023-01-27 [facility] of 07:48:00 [place] MD Liane olivier [facility] PHOSPHORUS LEVEL 2023-01-27 [facility] of 07:48:00 [place] MD Liane olivier [facility] COMPLETE BLOOD COUNT W/ 2023-01-27 [facility] ty of DIFFERENTIAL 07:48:00 [place] MD Liane olivier [facility] GLUCOSE LEVEL 2023-01-27 [facility] of 07:48:00 [place] MD Liane olivier [facility] BLOOD UREA NITROGEN 2023-01-27 [facility] o f 07:48:00 [place] MD Liane olivier [facility] ELECTROLYTE PANEL 2023-01-27 [facility] of 07:48:00 [place] MD Liane olivier [facility] SERUM CREATININE 2023-01-27 [facility] of 07:48:00 [place] [facility] .GLOMERULAR FILTRATION RATE 2023-01-27 [facility] ersity of 07:48:00 [place] MD Liane olivier [facility] CALCIUM LEVEL TOTAL 2023-01-27 [facility] o f 07:48:00 [place] MD Liane olivier [facility] Results CBC 2023-01-27 [facility] of 07:48:00 [place] MD Liane olivier [facility] MANUAL DIFFERENTIAL 2023-01-27 [facility] o f 07:48:00 [place] MD Liane olivier [facility] POC GLUCOSE SCREEN 2023-01-27 [facility] of 04:16:00 [place] MD Liane olivier [facility] URINE CULTURE 2023-01-27 Esthela [facility] of 03:45:00 [place] MD Liane olivier [facility] URINALYSIS WITH MICROSCOPIC 2023-01-27 Amanda Proctor ersity of IF INDICATED 03:45:00 [place] MD Liane olivier [facility] URINALYSIS MICROSCOPIC EXAM 2023-01-27 Amanda Proctor [facility] ersity of 03:45:00 [place] MD Liane olivier [facility] POC GLUCOSE SCREEN 2023-01-27 [facility] of 00:34:00 [place] MD Liane olivier [facility] POC GLUCOSE SCREEN 2023-01-26 [facility] of 22:30:00 [place] MD Liane olivier [facility] COVID-19 (SARS-COV-2) PCR - 2023-01-26 Amanda Proctor [facility] ersity of ASYMPTOMATIC - LT 21:34:00 Bere bates [facility] BLOODCULTURE 2023-01-26 Amanda Proctor of 19:44:00 Bere olivier [facility] COMPLETE BLOOD COUNT W/ 2023-01-26 Amanda Proctor ty of DIFFERENTIAL 19:44:00 Bere olivier [facility] MAGNESIUM LEVEL 2023-01-26 Amanda Proctor of 19:44:00 Bere olivier [facility] PHOSPHORUS LEVEL 2023-01-26 Amanda Proctor of 19:44:00 [place] MD Liane olivier [facility] FRACTIONATED BILIRUBIN 2023-01-26 Amanda Proctorit y of 19:44:00 Bere olivier [facility] AMYLASE LEVEL 2023-01-26 Amanda Proctor of 19:44:00 [place] MD Liane olivier [facility] LIPASE LEVEL 2023-01-26 Amanda Proctor of 19:44:00 Bere olivier [facility] LACTATE DEHYDROGENASE 2023-01-26 Amanda Proctor of 19:44:00 Bere olivier [facility] C REACTIVE PROTEIN 2023-01-26 Amanda Proctor of 19:44:00 [place] [facility] COMPREHENSIVE METABOLIC PANEL 2023-01-26 Amanda Proctor iversity of 19:44:00 Bere olivier [facility] PROCALCITONIN 2023-01-26 Amanda Proctor of 19:44:00 [place] MD Liane olivier [facility] Results CBC 2023-01-26 Amanda Proctor of 19:44:00 Bere olivier [facility] MANUAL DIFFERENTIAL 2023-01-26 Amanda Proctor o f 19:44:00 Bere olivier [facility] GLUCOSE LEVEL 2023-01-26 Amanda Proctor of 19:44:00 Bere olivier [facility] BLOOD UREA NITROGEN 2023-01-26 Amanda Proctor o f 19:44:00 [place] MD Liane olivier [facility] ELECTROLYTE PANEL 2023-01-26 Amanda Proctor of 19:44:00 Bere olivier [facility] SERUM CREATININE 2023-01-26 Amanda Proctor of 19:44:00 [place] MD Liane olivier [facility] .GLOMERULAR FILTRATION RATE 2023-01-26 [facility] ersity of 19:44:00 [place] MD Liane olivier [facility] CALCIUM LEVEL TOTAL 2023-01-26 [facility] o f 19:44:00 [place] MD Liane olivier [facility] ALBUMIN LEVEL 2023-01-26 [facility] of 19:44:00 [place] MD Rob [facility] ALKALINE PHOSPHATASE 2023-01-26 [facility] of 19:44:00 [place] MD Liane olivier [facility] ALANINE AMINOTRANSFERASE 2023-01-26 [facility] it of 19:44:00 [place] [facility] ASPARTATE AMINOTRANSFERASE 2023-01-26 [facility] rsity of 19:44:00 [place] [facility] Dothanevelin [facility] TOTAL PROTEIN 2023-01-26 [facility] Amanda [place] of 19:44:00 [place] [facility] COMPREHENSIVE METABOLIC PANEL 2023-01-20 Lorena Hdez [facility] of 17:53:46 [place] [facility] COMPLETE BLOOD COUNT W/ 2023-01-20 [facility] versity of DIFFERENTIAL 17:53:46 [place] [facility] MAGNESIUM LEVEL 2023-01-20 [facility] 17:53:46 [place] [facility] PHOSPHORUS LEVEL 2023-01-20 [facility] of 17:53:46 Bere GRIFFIN [facility] GLUCOSE LEVEL 2023-01-20 [facility] of 17:53:46 [place] MD Rob [facility] BLOOD UREA NITROGEN 2023-01-[address] [facility] ity of 17:53:46 [place] [facility] ELECTROLYTE PANEL 2023-01-20 [facility] 17:53:46 [place] [facility] SERUM CREATININE 2023-01-20 [facility] of 17:53:46 [place] [facility] .GLOMERULAR FILTRATION RATE 2023-01-20 [facility] 17:53:46 [place] [facility] CALCIUM LEVEL TOTAL 2023-01-20 Lorena Hdez [facility] ity of 17:53:46 [place] MD Liane olivier [facility] ALBUMIN LEVEL 2023-01-20 [facility] of 17:53:46 [place] MD Liane olivier [facility] ALKALINE PHOSPHATASE 2023-01-20 [facility] sity of 17:53:46 [place] MD Liane olivier [facility] ALANINE AMINOTRANSFERASE 2023-01-20 Lorena Hdez iversity of 17:53:46 [place] [facility] Dothanevelin olivier [facility] ASPARTATE AMINOTRANSFERASE 2023-01-20 [facility] of 17:53:46 [place] [facility] Dothanchrissy soy [facility] [facility] TOTAL PROTEIN 2023-01-20 [facility] 17:53[facility]46 [facility] Dothanevelin olivier [facility] FRACTIONATED BILIRUBIN 2023-01-20 Lorena Hdez [facility] ersity of 17:53:46 [place] MD Liane olivier [facility] Results CBC 2023-01-20 [facility] of 17:53:46 [facility] Dothanevelin olivier [facility] MANUAL DIFFERENTIAL 2023-01-[address] [facility] ity of 17:53:46 [place] MD Liane olivier [facility] CONTROLLED SUBSTANCE 2023-01-20 [facility] PANEL, URINE 17:37:00 Klebercount includes the [facility] TETRAHYDROCANNABINOL 2023-01-20 Williams [facility], UR 17:37:00 Rogerio Blackburn MD [facility] POC URINE DRUG SCREEN PANEL, 2023-01-20 [facility] versity of QUALITATIVE 17:37:00 [facility] POC GLUCOSE SCREEN 2023-01-18 [facility] of 18:10:00 [place] MD Rob [facility] POC GLUCOSE SCREEN 2023-01-18 [facility] of 12:46:00 [facility] BASIC METABOLIC PANEL, 2023-01-18 Ankit Locke rsity of CALCIUM TOTAL 09:03:00 [facility] MAGNESIUM LEVEL 2023-01-18 Ankit Locke o f 09:03:00 [place] [facility] PHOSPHORUS LEVEL 2023-01-18 Ankit Locke [place] of 09:03:00 [place] [facility] COMPLETE BLOOD COUNT W/ 2023-01-18 Ankit Locke ersity of DIFFERENTIAL 09:03:00 [place] [facility] GLUCOSE LEVEL 2023-01-18 Ankit Locke o f 09:03:00 [facility] BLOOD UREA NITROGEN 2023-01-18 [facility] 09:03:00 [facility] ELECTROLYTE PANEL 2023-01-18 Ankit Locke [place] of 09:03:00 [facility] SERUM CREATININE 2023-01-18 Ankit Locke [place] of 09:03:00 [facility] .GLOMERULAR FILTRATION RATE 2023-01-18 Ankit Locke [place] of 09:03:00 [facility] CALCIUM LEVEL TOTAL 2023-01-18 Ankit Locke [facility] ty of 09:03:00 [facility] Results CBC 2023-01-18 Ankit Locke [place] [facility] f 09:03:00 [facility] MANUAL DIFFERENTIAL 2023-01-18 [facility] of 09:03:00 [facility] POC GLUCOSE SCREEN 2023-01-18 [facility] of 02:33:00 [facility] POC GLUCOSE SCREEN 2023-01-17 [facility] of 23:22:00 [facility] POC GLUCOSE SCREEN 2023-01-17 [facility] of 17:43:00 [facility] POC GLUCOSE SCREEN 2023-01-17 [facility] of 13:58:00 [facility] BASIC METABOLIC PANEL, 2023-01-17 [facility] CALCIUM TOTAL 09:31:00 [facility] MAGNESIUM LEVEL 2023-01-17 Ankit Locke [place] [facility] f 09:31:00 [facility] Dothanchrissy soy [facility] PHOSPHORUS LEVEL 2023-01-17 Ankit Locke [place] of 09:31:00 [facility] COMPLETE BLOOD COUNT W/ 2023-01-17 An[facility] ersity of DIFFERENTIAL 09:31:00 [facility] GLUCOSE LEVEL 2023-01-17 Ankit Locke [place] [facility] f 09:31:00 [facility] BLOOD UREA NITROGEN 2023-01-17 Ankit Locke [facility] ty of 09:31:00 [facility] ELECTROLYTE PANEL 2023-01-17 Ankit Locke [place] of 09:31:00 [facility] SERUM CREATININE 2023-01-17 Ankit Locke [place] of 09:31:00 [facility] .GLOMERULAR FILTRATION RATE 2023-01-17 Ankit Locke [place] of 09:31:00 [facility] CALCIUM LEVEL TOTAL 2023-01-17 Ankit Locke [facility] ty of 09:31:00 [facility] Results CBC 2023-01-17 Ankit Locke [place] [facility] f 09:31:00 [facility] MANUAL DIFFERENTIAL 2023-01-17 Ankit Locke [facility] ty of 09:31:00 [facility] POC GLUCOSE SCREEN 2023-01-17 [facility] of 01:43:00 [place] [facility] POC GLUCOSE SCREEN 2023-01-16 [facility] of 22:16:00 [facility] POC GLUCOSE SCREEN 2023-01-16 [facility] of 17:25:00 [place] [facility] POC GLUCOSE SCREEN 2023-01-16 [facility] of 14:01:00 [facility] BASIC METABOLIC PANEL, 2023-01-16 Ankit Locke rsity of CALCIUM TOTAL 11:22:00 [place] [facility] MAGNESIUM LEVEL 2023-01-16 Ankit Locke [place] [facility] f 11:22:00 [facility] Dothanevelin oliveir [facility] PHOSPHORUS LEVEL 2023-01-16 Ankit Locke [place] of 11:22:00 [facility] COMPLETE BLOOD COUNT W/ 2023-01-16 Ankit Locke ersity of DIFFERENTIAL 11:22:00 [place] [facility] soy [facility] GLUCOSE LEVEL 2023-01-16 Ankit Locke [place] [facility] f 11:22:00 [place] [facility] soy [facility] BLOOD UREA NITROGEN 2023-01-16 Ankit Locke [facility] ty of 11:22:00 [place] [facility] ELECTROLYTE PANEL 2023-01-16 Ankit Locke [place] of 11:22:00 [facility] SERUM CREATININE 2023-01-16 Ankit Locke [place] of 11:22:00 [facility] .GLOMERULAR FILTRATION RATE 2023-01-16 Ankit Locke [place] of 11:22:00 [facility] CALCIUM LEVEL TOTAL 2023-01-16 Ankit Locke [facility] ty of 11:22:00 [place] [facility] soy [facility] Results CBC 2023-01-16 Ankit Locke [place] [facility] f 11:22:00 [place] MD Liane olivier [facility] MANUAL DIFFERENTIAL 2023-01-16 Ankit Locke [facility] ty of 11:22:00 [place] [facility] soy [facility] POC GLUCOSE SCREEN 2023-01-16 [facility] of 01:34:00 [place] MD Liane olivier [facility] POC GLUCOSE SCREEN 2023-01-15 [facility] of 23:29:00 [facility] Dothanchr[facility] soy [facility] POC GLUCOSE SCREEN 2023-01-15 [facility] of 18:11:00 [place] [facility] POC GLUCOSE SCREEN 2023-01-15 [facility] of 13:12:00 [place] [facility] BASIC METABOLIC PANEL, 2023-01-15 [facility] CALCIUM TOTAL 07:23:00 [place] MD Liane olivier [facility] MAGNESIUM LEVEL 2023-01-15 Ankit Locke [place] [facility] f 07:23:00 [facility] D[facility]anch[facility] soy [facility] PHOSPHORUS LEVEL 2023-01-15 Ankit Locke [place] of 07:23:00 [place] [facility] COMPLETE BLOOD COUNT W/ 2023-01-15 An[facility] ersity of DIFFERENTIAL 07:23:00 [facility] GLUCOSE LEVEL 2023-01-15 Ankit Locke [place] [facility] f 07:23:00 [facility] BLOOD UREA NITROGEN 2023-01-15 Ankit Locke [facility] ty of 07:23:00 [place] [facility] ELECTROLYTE PANEL 2023-01-15 Ankit Locke [place] of 07:23:00 [facility] SERUM CREATININE 2023-01-15 Ankit Locke [place] of 07:23:00 [facility] .GLOMERULAR FILTRATION RATE 2023-01-15 Ankit Locke [place] of 07:23:00 [facility] CALCIUM LEVEL TOTAL 2023-01-15 Ankit Locke [facility] ty of 07:23:00 [place] [facility] Results CBC 2023-01-15 Ankit Locke [place] [facility] f 07:23:00 [facility] D[facility] soy [facility] MANUAL DIFFERENTIAL 2023-01-15 [facility] of 07:23:00 [place] MD Liane olivier [facility] POC GLUCOSE SCREEN 2023-01-15 [facility] of 03:18:00 [facility] POC GLUCOSE SCREEN 2023-01-15 [facility] of 00:17:00 [facility] POC GLUCOSE SCREEN 2023-01-14 [facility] of 19:43:00 [facility] POC GLUCOSE SCREEN 2023-01-14 [facility] of 14:54:00 [place] [facility] POC GLUCOSE SCREEN 2023-01-14 [facility] of 12:55:00 [facility] BASIC METABOLIC PANEL, 2023-01-14 Ankit Locke [facility] rsity of CALCIUM TOTAL 08:31:00 [place] [facility] MAGNESIUM LEVEL 2023-01-14 Ankit Locke [place] [facility] f 08:31:00 [facility] PHOSPHORUS LEVEL 2023-01-14 Ankit Locke [place] of 08:31:00 [facility] COMPLETE BLOOD COUNT W/ 2023-01-14 [facility] ersity of DIFFERENTIAL 08:31:00 [facility] GLUCOSE LEVEL 2023-01-14 Ankit Locke [place] [facility] f 08:31:00 [facility] BLOOD UREA NITROGEN 2023-01-14 Ankit Locke [facility] ty of 08:31:00 [place] [facility] ELECTROLYTE PANEL 2023-01-14 Ankit Locke [place] of 08:31:00 [facility] SERUM CREATININE 2023-01-14 Ankit Locke [place] of 08:31:00 [facility] .GLOMERULAR FILTRATION RATE 2023-01-14 Ankit Locke [place] of 08:31:00 [facility] CALCIUM LEVEL TOTAL 2023-01-14 Ankit Locke [facility] ty of 08:31:00 [facility] Results CBC 2023-01-14 Ankit Locke [place] [facility] f 08:31:00 [facility] MANUAL DIFFERENTIAL 2023-01-14 Ankit Locke [facility] ty of 08:31:00 [facility] POC GLUCOSE SCREEN 2023-01-14 [facility] of 03:05:00 [facility] POC GLUCOSE SCREEN 2023-01-[address] [place] [address] of 23:08:00 [facility] POC GLUCOSE SCREEN 2023-01-13 [facility] of 18:04:00 [facility] POC GLUCOSE SCREEN 2023-01-13 [facility] of 16:39:00 [facility] POC GLUCOSE SCREEN 2023-01-13 [facility] of 14:36:00 [facility] POC GLUCOSE SCREEN 2023-01-13 [facility] 12:31:00 [facility] BASIC METABOLIC PANEL, 2023-01-13 Ankit Locke rsity of CALCIUM TOTAL 07:55:00 [facility] MAGNESIUM LEVEL 2023-01-13 Ankit Locke [place] [facility] f 07:55:00 [facility] PHOSPHORUS LEVEL 2023-01-13 Ankit Locke [place] of 07:55:00 [facility] COMPLETE BLOOD COUNT W/ 2023-01-13 Ankit Locke ersity of DIFFERENTIAL 07:55:00 [facility] GLUCOSE LEVEL 2023-01-13 Irina Houston [place] of 07:55:00 [facility] BLOOD UREA NITROGEN 2023-01-13 [facility] 07:55:00 [facility] ELECTROLYTE PANEL 2023-01-13 Irina Houston [place] of 07:55:00 [facility] SERUM CREATININE 2023-01-13 [facility] 07:55:00 [facility] .GLOMERULAR FILTRATION RATE 2023-01-13 Irina Houston Uni versity of 07:55:00 [place] [facility] CALCIUM LEVEL TOTAL 2023-01-13 Irina Houston [place] of 07:55:00 [facility] Results CBC 2023-01-13 Irina Houston [place] of 07:55:00 [facility] MANUAL DIFFERENTIAL 2023-01-13 [facility] 07:55:00 [facility] POC GLUCOSE SCREEN 2023-01-13 [facility] of 03:31:00 [place] [facility] POC GLUCOSE SCREEN 2023-01-13 [facility] of 00:05:00 [facility] POC GLUCOSE SCREEN 2023-01-12 [facility] of 18:51:00 [facility] POC GLUCOSE SCREEN 2023-01-12 [facility] of 18:00:00 [facility] POC GLUCOSE SCREEN 2023-01-12 [facility] of 14:16:00 [facility] POC GLUCOSE SCREEN 2023-01-12 [facility] of 12:55:00 [facility] POC GLUCOSE SCREEN 2023-01-12 [facility] of 10:59:00 [facility] BASIC METABOLIC PANEL, 2023-01-12 [facility] CALCIUM TOTAL 08:03:00 [facility] MAGNESIUM LEVEL 2023-01-12 Ankit Locke [place] [facility] f 08:03:00 [facility] PHOSPHORUS LEVEL 2023-01-12 Ankit Locke [place] of 08:03:00 [facility] COMPLETE BLOOD COUNT W/ 2023-01-12 An[facility] ersity of DIFFERENTIAL 08:03:00 [facility] GLUCOSE LEVEL 2023-01-12 Irina Houston [place] of 08:03:00 [facility] BLOOD UREA NITROGEN 2023-01-12 Irina Houston [place] of 08:03:00 [facility] ELECTROLYTE PANEL 2023-01-12 Irina Houston [place] of 08:03:00 [facility] SERUM CREATININE 2023-01-12 Irina Houston [place] of 08:03:00 [facility] .GLOMERULAR FILTRATION RATE 2023-01-12 Irina Houston Uni versity of 08:03:00 [facility] CALCIUM LEVEL TOTAL 2023-01-12 Irina Houston [place] of 08:03:00 [facility] Results CBC 2023-01-12 Irina Houston [place] of 08:03:00 [facility] MANUAL DIFFERENTIAL 2023-01-12 Irina Houston [place] of 08:03:00 [facility] POC GLUCOSE SCREEN 2023-01-12 Roberto Carlos Walsh [place] of 06:58:00 [facility] COVID-19 (SARS-COV-2) PCR - 2023-01-12 Nguyen Barcenas U niversity of ASYMPTOMATIC - LT 03:25:00 [place] [facility] XR KNEE 1 OR 2 VW RIGHT 2023-01-12 Nguyen Barcenase rsity of 03:22:08 [facility] POC GLUCOSE SCREEN 2023-01-12 Roberto Carlos Walsh [place] of 01:37:[address] [facility] [address] HEAD WO CONTRAST 2023-01-11 Nguyen Barcenas [facility] of 23:29:12 [facility] COMPLETE BLOOD COUNT W/ 2023-01-11 Nguyen Barcenas Unive rsity of DIFFERENTIAL 21:11:00 [facility] COMPREHENSIVE METABOLIC PANEL 2023-01-11 [facility] 21:11:00 [facility] MAGNESIUM LEVEL 2023-01-11 [facility] 21:11:00 [facility] PHOSPHORUS LEVEL 2023-01-11 Nguyen Barcenas [facility] o f 21:11:00 [facility] PROTHROMBIN TIME 2023-01-11 Nguyen Barcenas [facility] o f 21:11:00 [facility] APTT 2023-01-11 Nguyen Barcenas [place] of 21:11:00 [facility] Results CBC 2023-01-11 Nguyen Barcenas [facility] of 21:11:00 [facility] MANUAL DIFFERENTIAL 2023-01-11 Nguyen Barcenas [facility] of 21:11:00 [facility] GLUCOSE LEVEL 2023-01-11 Nguyen Barcenas [facility] of 21:11:00 [facility] BLOOD UREA NITROGEN 2023-01-11 Nguyen Barcenas [facility] of 21:11:00 [facility] ELECTROLYTE PANEL 2023-01-11 Nguyen Barcenas [facility] of 21:11:00 [facility] SERUM CREATININE 2023-01-11 Nguyen Barecnas [facility] o f 21:11:00 [facility] .GLOMERULAR FILTRATION RATE 2023-01-11 Nguyen Barcenas [facility] of 21:11:00 [facility] CALCIUM LEVEL TOTAL 2023-01-11 Nguyen Barcenas [facility] of 21:11:00 [facility] ALBUMIN LEVEL 2023-01-11 Nguyen Barcenas [facility] of 21:11:00 [facility] ALKALINE PHOSPHATASE 2023-01-11 Nguyen Barcenas Universi ty of 21:11:00 [facility] ALANINE AMINOTRANSFERASE 2023-01-11 Nguyen Barcenas Univ ersity of 21:11:00 [facility] ASPARTATE AMINOTRANSFERASE 2023-01-11 Nguyen Barcenas Un iversity of 21:11:00 [facility] TOTAL PROTEIN 2023-01-11 Nguyen Barcenas [facility] of 21:11:00 [facility] FRACTIONATED BILIRUBIN 2023-01-11 Nguyen Barcenas Univer sity of 21:11:00 [facility] COMPREHENSIVE METABOLIC PANEL 2023-01-07 Lorena Hdez University of 14:28:23 [facility] COMPLETE BLOOD COUNT W/ 2023-01-07 Lorena Hdez Uni versity of DIFFERENTIAL 14:28:23 [facility] MAGNESIUM LEVEL 2023-01-07 [facility] of 14:28:23 [facility] PHOSPHORUS LEVEL 2023-01-07 [facility] 14:28:23 [facility] GLUCOSE LEVEL 2023-01-07 Lemuel Lorena KaylaB[facility] of 14:28:23 [facility] BLOOD UREA NITROGEN 2023-01-07 Lorena Hdez [facility] ity of 14:28:23 [facility] ELECTROLYTE PANEL 2023-01-[address] [facility] of 14:28:23 [facility] SERUM CREATININE 2023-01-07 Hdez Lorena [facility] of 14:28:23 [facility] .GLOMERULAR FILTRATION RATE 2023-01-07 Simona Hdezfer KaylaB[facility] of 14:28:23 [facility] CALCIUM LEVEL TOTAL 2023-01-[address] [facility] ity of 14:28:23 [facility] ALBUMIN LEVEL 2023-01-07 [facility] of 14:28:23 [facility] ALKALINE PHOSPHATASE 2023-01-07 Lorena Hdez [facility] sity of 14:28:23 [facility]re [facility] ALANINE AMINOTRANSFERASE 2023-01-07 Lorena Hdez iversity of 14:28:23 Bere GRIFFIN [facility] ASPARTATE AMINOTRANSFERASE 2023-01-07 [facility] of 14:28:23 [facility] TOTAL PROTEIN 2023-01-07 [facility] of 14:28:23 [facility] FRACTIONATED BILIRUBIN 2023-01-07 Simona Hdezfer [facility]Ge[facility] ersity of 14:28:23 [facility] Results CBC 2023-01-07 [facility] of 14:28:23 [facility] MANUAL DIFFERENTIAL 2023-01-07 Lorena Hdez [facility] ity of 14:28:23 [facility] COMPREHENSIVE METABOLIC PANEL 2023-01-01 Lorena Hdez [facility] of 14:26:43 [facility] COMPLETE BLOOD COUNT W/ 2023-01-01 Lorena Hdez [facility] versity of DIFFERENTIAL 14:26:43 [facility] MAGNESIUM LEVEL 2023-01-01 Lorena Hdez [place] of 14:26:43 [facility] PHOSPHORUS LEVEL 2023-01-01 Lorena Hdez [place] of 14:26:43 [facility] GLUCOSE LEVEL 2023-01-01 [facility] 14:26:43 [facility] BLOOD UREA NITROGEN 2023-01-[address] [facility] ity of 14:26:43 [facility] ELECTROLYTE PANEL 2023-01-01 [facility] 14:26:43 [facility] SERUM CREATININE 2023-01-01 [facility] 14:26:43 [facility] .GLOMERULAR FILTRATION RATE 2023-01-01 [facility] of 14:26:43 [facility] CALCIUM LEVEL TOTAL 2023-01-01 Lorena Hdez [facility] ity of 14:26:43 [facility] ALBUMIN LEVEL 2023-01-01 Lorena Hdez [place] of 14:26:43 Bere GRIFFIN [facility] ALKALINE PHOSPHATASE 2023-01-01 [facility] 14:26:43 Bere [facility] ALANINE AMINOTRANSFERASE 2023-01-01 Lorena Hdez iversity of 14:26:43 [facility] ASPARTATE AMINOTRANSFERASE 2023-01-01 [facility] 14:26:43 [facility] TOTAL PROTEIN 2023-01-01 Lorena Hdez [place] of 14:26:43 [facility] FRACTIONATED BILIRUBIN 2023-01-01 [facility] ersity of 14:26:43 [facility] Results CBC 2023-01-01 Lorena Hdez [place] of 14:26:43 [facility] soy [facility] MANUAL DIFFERENTIAL 2023-01-01 Lorena Hdez [facility] ity of 14:26:43 [facility] [place] VISUAL FIELD, 2022-12-29 Suzanne Mcgrath ity of INTERMEDIATE - OU - BOTH EYES 16:51:16 Dereck astudillo MD [facility] OCT, OPTIC NERVE - OU - BOTH 2022-12-29 Suzanne Mcgrath U niversity of EYES 16:43:49 [facility] OCT, RETINA - OU - BOTH EYES 2022-12-29 Suzanne Mcgrath niversity of 16:43:47 [facility] COMPREHENSIVE METABOLIC PANEL 2022-12-24 Lorena Hdez [facility] of 15:16:00 [facility] COMPLETE BLOOD COUNT W/ 2022-12-24 Lorena Hdez [facility] versity of DIFFERENTIAL 15:16:00 [facility] MAGNESIUM LEVEL 2022-12-24 [facility] 15:16:00 [facility] PHOSPHORUS LEVEL 2022-12-24 [facility] of 15:16:00 [facility] GLUCOSE LEVEL 2022-12-24 [facility] 15:16:00 [facility] BLOOD UREA NITROGEN 2022-12-24 Lorena Hdez [facility] ity of 15:16:00 [facility] ELECTROLYTE PANEL 2022-12-24 [facility] 15:16:00 [facility] SERUM CREATININE 2022-12-24 Lorena Hdez [place] of 15:16:00 [facility] .GLOMERULAR FILTRATION RATE 2022-12-24 Lorena Hdez [place] of 15:16:00 [facility] CALCIUM LEVEL TOTAL 2022-12-24 Lorena Hdez [facility] ity of 15:16:00 [facility] ALBUMIN LEVEL 2022-12-24 Lorena Hdezgh University of 15:16:00 [facility] ALKALINE PHOSPHATASE 2022-12-24 [facility] 15:16:00 [facility] ALANINE AMINOTRANSFERASE 2022-12-24 Lorena Hdez iversity of 15:16:00 [facility] ASPARTATE AMINOTRANSFERASE 2022-12-24 Lorena Hdez [facility] of 15:16:00 [facility] TOTAL PROTEIN 2022-12-24 [facility] 15:16:00 [facility] FRACTIONATED BILIRUBIN 2022-12-24 [facility] ersity of 15:16:00 [facility] Results CBC 2022-12-24 Lorena Hdez [place] of 15:16:00 [facility] MANUAL DIFFERENTIAL 2022-12-24 Lorena Hdez [facility] ity of 15:16:00 [facility] COVID-19 (SARS-COV-2) PCR - 2022-12-23 [facility] - 18:01:00 [place] MD Ruelas [facility] POC GLUCOSE SCREEN 2022-12-16 [facility] 00:07:00 [facility] POC GLUCOSE SCREEN 2022-12-15 [facility] of 18:52:00 [facility] OCT, OPTIC NERVE - OU - BOTH 2022-12-15 F[facility]ed [facility] versity of EYES 16:37:29 [place] [facility] OCT, RETINA - OU - BOTH EYES 2022-12-15 Fareed [facility] of 16:37:23 [place] [facility] FUNDUS PHOTOS - OU - BOTH 2022-12-15 Fareed Daviser sity of EYES 16:37:12 [place] [facility] 3D DENTAL IMAGING (ICAT) 2022-12-15 Wilder Soliz [facility] ity of 14:42:55 [place] [facility] POC GLUCOSE SCREEN 2022-12-15 Karen Ordaz [place] of 13:19:00 [place] MD Liane olivier [facility] POC GLUCOSE SCREEN 2022-12-15 OrdazMatthew [facility] of 12:12:00 [place] MD [facility]cl[facility] hospital[facility] BASIC METABOLIC PANEL, 2022-12-15 [facility] CALCIUM TOTAL 09:44:00 [place] MD Liane olivier [facility] MAGNESIUM LEVEL 2022-12-15 Mana Powers [place] of 09:44:00 [place] MD Liane olivier [facility] PHOSPHORUS LEVEL 2022-12-15 Mana Powers [place] of 09:44:00 [facility] COMPLETE BLOOD COUNT W/ 2022-12-15 Mana Powers [facility] ty of DIFFERENTIAL 09:44:00 [place] MD Liane olivier [facility] GLUCOSE LEVEL 2022-12-15 Mana Powers [place] of 09:44:00 [place] [facility] BLOOD UREA NITROGEN 2022-12-15 Mana Powers [place] o f 09:44:00 [place] MD Liane olivier [facility] ELECTROLYTE PANEL 2022-12-15 Mana Powers [place] of 09:44:00 [place] [facility] SERUM CREATININE 2022-12-15 Mana Powers [place] of 09:44:00 [place] [facility] .GLOMERULAR FILTRATION RATE 2022-12-15 Mana Powers [facility] ersity of 09:44:00 [place] MD Liane olivier [facility] CALCIUM LEVEL TOTAL 2022-12-15 Mana Powers [place] o f 09:44:00 [place] MD Liane olivier [facility] Results CBC 2022-12-15 Mana Powers [place] of 09:44:00 [place] MD Liane olivier [facility] MANUAL DIFFERENTIAL 2022-12-15 Mana Powers [place] o f 09:44:00 [place] MD Liane olivier [facility] POC GLUCOSE SCREEN 2022-12-15 Trista LopezCarolinas [facility] of 08:28:00 [place] MD Liane olivier [facility] POC GLUCOSE SCREEN 2022-12-15 Trista LopezCarolinas [facility] of 04:04:00 [place] MD Liane olivier [facility] POC GLUCOSE SCREEN 2022-12-14 Trista LopezCarolinas [facility] of 23:26:00 [facility] POC GLUCOSE SCREEN 2022-12-14 ChristinaTrista BoyleCarolinas [facility] of 22:14:00 [place] [facility] [place] MODIFIED BARIUM SWALLOW W 2022-12-14 ChristinaTrista BoyleCarolinas [facility] of SPEECH 20:37:56 [facility] POC GLUCOSE SCREEN 2022-12-14 ChristinaTravis Boyle [place] of 18:08:00 [place] [facility] GENERAL LABORATORY ADD ON 2022-12-14 Travis Lopez [facility] versity of TEST 14:03:00 [place] [facility] POC GLUCOSE SCREEN 2022-12-14 ChristinaTrista BoyleCarolinas [facility] of 13:25:00 [place] [facility] POC GLUCOSE SCREEN 2022-12-14 Derrick Gill [facility] ty of 11:55:00 [facility] BASIC METABOLIC PANEL, 2022-12-14 Mana Powersit y of CALCIUM TOTAL 10:46:00 [facility] MAGNESIUM LEVEL 2022-12-14 Mana Powers [place] of 10:46:00 [facility] PHOSPHORUS LEVEL 2022-12-14 Mana Powers [place] of 10:46:00 [facility] COMPLETE BLOOD COUNT W/ 2022-12-14 Mana Powers ty of DIFFERENTIAL 10:46:00 [place] [facility] GLUCOSE LEVEL 2022-12-14 Mana Powers [place] of 10:46:00 [place] [facility] BLOOD UREA NITROGEN 2022-12-14 Mana Powers [place] o f 10:46:00 [place] [facility] ELECTROLYTE PANEL 2022-12-14 Mana Powers [place] of 10:46:00 [place] [facility] SERUM CREATININE 2022-12-14 Mana Powers [place] of 10:46:00 [facility] .GLOMERULAR FILTRATION RATE 2022-12-14 Mana Powers [facility] ersity of 10:46:00 [place] [facility] CALCIUM LEVEL TOTAL 2022-12-14 Gio, [facility] o f 10:46:00 [place] MD Liane olivier [facility] [place] Results CBC 2022-12-14 [facility] of 10:46:00 [place] MD Liane [facility]ier [facility] MANUAL DIFFERENTIAL 2022-12-14 [facility] o f 10:46:00 [place] MD Liane olivier [facility] ALBUMIN LEVEL 2022-12-14 ChristinaMontana Formerly [facility] of 10:46:00 [place] MD Liane olivier [facility] ALKALINE PHOSPHATASE 2022-12-14 Jessica [facility] ty of 10:46:00 [place] MD Liane olivier [facility] ALANINE AMINOTRANSFERASE 2022-12-[address] [facility] ersity of 10:46:00 [place] MD Liane olivier [facility] ASPARTATE AMINOTRANSFERASE 2022-12-14 [facility] iversity of 10:46:00 [place] MD Liane olivier [facility] TOTAL PROTEIN 2022-12-14 ChristinaMontana [facility] of 10:46:00 [place] MD Liane olivier [facility] FRACTIONATED BILIRUBIN 2022-12-14 Jessica [facility] sity of 10:46:00 [place] Liane [facility]ier [facility] POC GLUCOSE SCREEN 2022-12-14 Trista LopezCarolinas [facility] of 07:36:00 [place] Liane [facility] POC GLUCOSE SCREEN 2022-12-14 Trista LopezCarolinas [facility] of 03:56:00 [place] Liane [facility] POC GLUCOSE SCREEN 2022-12-14 Trista LopezCarolinas [facility] of 00:31:00 [place] Liane [facility] POC GLUCOSE SCREEN 2022-12-13 Jessica [facility] of 19:24:00 [place] Liane [facility]ier [facility] POC GLUCOSE SCREEN 2022-12-13 Trista LopezCarolinas [facility] of 14:02:00 [place] Liane [facility] POC GLUCOSE SCREEN 2022-12-13 Trista LopezCarolinas [facility] of 11:58:00 [place] Liane [facility] POC GLUCOSE SCREEN 2022-12-13 Trista LopezCarolinas [facility] of 09:24:00 [place] Liane olivier [facility] BASIC METABOLIC PANEL, 2022-12-13 [facility] Powers [facility] CALCIUM TOTAL 09:12:00 [facility] MAGNESIUM LEVEL 2022-12-13 Mana Powers [place] of 09:12:00 [facility] PHOSPHORUS LEVEL 2022-12-13 Mana Powers [place] of 09:12:00 [facility] COMPLETE BLOOD COUNT W/ 2022-12-13 Mana Powers [facility] ty of DIFFERENTIAL 09:12:00 [facility] GLUCOSE LEVEL 2022-12-13 Mana Powers [place] of 09:12:00 [facility] BLOOD UREA NITROGEN 2022-12-13 Mana Powers [place] o f 09:12:00 [facility] ELECTROLYTE PANEL 2022-12-13 Mana Powers [place] of 09:12:00 [place] [facility] SERUM CREATININE 2022-12-13 Mana Powers [place] of 09:12:00 [facility] .GLOMERULAR FILTRATION RATE 2022-12-13 Mana Powers [facility] ersity of 09:12:00 [place] [facility] CALCIUM LEVEL TOTAL 2022-12-13 Mana Powers [place] o f 09:12:00 [place] [facility] Results CBC 2022-12-13 Mana Powers [place] of 09:12:00 [facility] MANUAL DIFFERENTIAL 2022-12-13 Mana Powers [place] o f 09:12:00 [place] MD Liane olivier [facility] POC GLUCOSE SCREEN 2022-12-13 Trista LopezCarolinas [facility] of 03:43:00 [place] [facility] POC GLUCOSE SCREEN 2022-12-13 Travis Lopez [place] of 00:16:00 [place] [facility] POC GLUCOSE SCREEN 2022-12-12 Trista LopezCarolinas [facility] of 18:52:00 [place] [facility] POC GLUCOSE SCREEN 2022-12-12 Jessica [facility] of 13:47:00 [place] [facility] POC GLUCOSE SCREEN 2022-12-12 Travis Lopez [place] of 11:52:00 [place] [facility] BASIC METABOLIC PANEL, 2022-12-[address] [facility] [place] y of CALCIUM TOTAL 10:30:00 [place] [facility] MAGNESIUM LEVEL 2022-12-12 Mana Powers [place] of 10:30:00 [place] [facility] PHOSPHORUS LEVEL 2022-12-12 Mana Powers [place] of 10:30:00 [facility] COMPLETE BLOOD COUNT W/ 2022-12-12 Mana Powers [facility] ty of DIFFERENTIAL 10:30:00 [place] [facility] GLUCOSE LEVEL 2022-12-12 Mana Powers [place] of 10:30:00 [facility] BLOOD UREA NITROGEN 2022-12-12 Mana Powers [place] o f 10:30:00 [place] [facility] ELECTROLYTE PANEL 2022-12-12 Mana Powers [place] of 10:30:00 [place] [facility] SERUM CREATININE 2022-12-12 Mana Powers [place] of 10:30:00 [facility] .GLOMERULAR FILTRATION RATE 2022-12-12 Mana Powers [facility] ersity of 10:30:00 [place] [facility] CALCIUM LEVEL TOTAL 2022-12-12 Mana Powers [place] o f 10:30:00 [place] [facility] Results CBC 2022-12-12 Mana Powers [place] of 10:30:00 [facility] MANUAL DIFFERENTIAL 2022-12-12 Mana Powers [place] o f 10:30:00 [place] [facility] POC GLUCOSE SCREEN 2022-12-12 Travis Lopez [place] of 08:06:00 [facility] POC GLUCOSE SCREEN 2022-12-12 Travis Lopez [place] of 04:01:00 [place] [facility] LACTIC ACID, VENOUS 2022-12-12 Travis Lopez y of 03:50:00 [place] [facility] VENOUS BLOOD GAS 2022-12-12 [facility] o f 00:21:00 [place] MD Liane olivier [facility] LIPASE LEVEL 2022-12-12 [facility] of 00:21:00 [place] MD Liane olivier [facility] POC GLUCOSE SCREEN 2022-12-12 [facility] of 00:10:00 [facility] Dothanevelin olivier [facility] GENERAL LABORATORY ADD ON 2022-12-11 [facility] versity of TEST 23:39:00 [place] MD Liane olivier [facility] KETONE BODIES QUALITATIVE 2022-12-11 Waleska Salinas Unive rsity of 23:19:00 [facility] Dothanevelin olivier [facility] POC GLUCOSE SCREEN 2022-12-11 [facility] of 22:51:00 [facility] Dothanevelin olivier [facility] LACTIC ACID, VENOUS 2022-12-[address] [facility] y of 22:33:00 [place] MD Liane olivier [facility] ELECTROLYTE PANEL 2022-12-11 Waleska Salinas [place] of 22:33:00 [facility] Dothanevelin olivier [facility] LIPASE LEVEL 2022-12-11 Waleska Salinas [place] of 22:33:00 [place] Liane olivier [facility] POC CRITICAL 2022-12-11 [facility] of 21:34:00 [facility] Dothanevelin [facility] POC GLUCOSE SCREEN 2022-12-11 [facility] of 21:34:00 [place] MD Liane olivier [facility] POC CRITICAL 2022-12-11 [facility] of 20:33:00 [facility] Dothanevelin olivier [facility] POC GLUCOSE SCREEN 2022-12-11 [facility] of 20:33:00 [facility] Dothanevelin olivier [facility] POC GLUCOSE SCREEN 2022-12-11 [facility] of 18:35:00 [facility] Dothanevelin [facility] POC GLUCOSE SCREEN 2022-12-11 [facility]Vencor Hospitalpatric[facility] of 14:14:00 [place] Liane olivier [facility] LACTIC ACID, VENOUS 2022-12-11 Mana Powers [place] o f 10:37:59 [place] [facility] BASIC METABOLIC PANEL, 2022-12-11 Mana Powersit y of CALCIUM TOTAL 10:30:00 [place] [facility] MAGNESIUM LEVEL 2022-12-11 Mana Powers [place] of 10:30:00 [place] [facility] PHOSPHORUS LEVEL 2022-12-11 Mana Powers [place] of 10:30:00 [place] [facility] COMPLETE BLOOD COUNT W/ 2022-12-11 Mana Powers ty of DIFFERENTIAL 10:30:00 [place] [facility] GLUCOSE LEVEL 2022-12-11 Irina Houston [place] of 10:30:00 [place] [facility] BLOOD UREA NITROGEN 2022-12-11 Irina Houston [place] of 10:30:00 [place] [facility] ELECTROLYTE PANEL 2022-12-11 Irina Houston [place] of 10:30:00 [place] [facility] SERUM CREATININE 2022-12-11 Irina Houston [place] of 10:30:00 [place] [facility] .GLOMERULAR FILTRATION RATE 2022-12-11 Irina Houston Uni versity of 10:30:00 [place] [facility] CALCIUM LEVEL TOTAL 2022-12-11 Irina Houston [place] of 10:30:00 [place] [facility] Results CBC 2022-12-11 Irina Houston [place] of 10:30:00 [place] [facility] MANUAL DIFFERENTIAL 2022-12-11 Irina Houston [place] of 10:30:00 [place] [facility] POC GLUCOSE SCREEN 2022-12-11 [place], [place] of 07:20:00 Jaycee Blackburn MD [facility] POC GLUCOSE SCREEN 2022-12-11 [facility] of 04:00:00 Jaycee Blackburn MD [facility] POC GLUCOSE SCREEN 2022-12-11 [facility] 00:29:00 Jaycee Blackburn MD [facility] POC GLUCOSE SCREEN 2022-12-10 [facility] of 23:20:00 Jaycee Blackburn MD [facility] CT HEAD WO CONTRAST 2022-12-10 [facility] o f 21:21:00 Jaycee [place] [facility] POC GLUCOSE SCREEN 2022-12-10 [facility] of 19:45:00 Jaycee [place] [facility] POC GLUCOSE SCREEN 2022-12-10 [facility] o f 17:35:00 [place] [facility] POC GLUCOSE SCREEN 2022-12-10 Mer Milian [place] of 13:30:00 [place] [facility] URINE CULTURE 2022-12-10 [facility] of 12:13:00 [place] [facility] URINALYSIS WITH MICROSCOPIC 2022-12-10 shariTammy [facility] ersity of IF INDICATED 12:13:00 [place] [facility] BASIC METABOLIC PANEL, 2022-12-[address] [facility] [place] [place] y of CALCIUM TOTAL 11:13:00 [place] [facility] MAGNESIUM LEVEL 2022-12-10 Mana Powers [place] of 11:13:00 [place] [facility] PHOSPHORUS LEVEL 2022-12-10 Mana Powers [place] of 11:13:00 [place] [facility] COMPLETE BLOOD COUNT W/ 2022-12-10 Mana Powers ty of DIFFERENTIAL 11:13:00 [place] [facility] HEMOGLOBIN A1C 2022-12-10 Irina Houston [place] of 11:13:00 [place] [facility] GLUCOSE LEVEL 2022-12-10 Irina Houston [place] of 11:13:00 [place] [facility] BLOOD UREA NITROGEN 2022-12-10 Irina Houston [place] of 11:13:00 [place] [facility] ELECTROLYTE PANEL 2022-12-10 Irina Houston [place] of 11:13:00 [place] [facility] SERUM CREATININE 2022-12-10 CelsoIrina olivier [place] of 11:13:00 [place] [facility] .GLOMERULAR FILTRATION RATE 2022-12-10 Irina Houston Uni versity of 11:13:00 [place] MD [facility] CALCIUM LEVEL TOTAL 2022-12-10 CelsoIrina olivier [place] of 11:13:00 [place] MD Rob [facility] Results CBC 2022-12-10 Irina Houston [place] of 11:13:00 [facility] MANUAL DIFFERENTIAL 2022-12-10 CelsoIrina olivier [place] of 11:13:00 [place] [facility] POC GLUCOSE SCREEN 2022-12-10 Mer Milian [place] of 07:38:00 [place] [facility] POC GLUCOSE SCREEN 2022-12-10 Mer Milian [place] of 05:18:00 [place] [facility] POC VENOUS BLOOD GAS + 2022-12-10 Roberto Carlos Walsh [facility] [place] [place] y of LACTATE 03:36:00 [place] [facility] COVID-19 (SARS-COV-2) PCR - 2022-12-10 Roberto Carlos [facility] ersity of ASYMPTOMATIC - LT 00:01:00 [place] [facility] AMMONIA LEVEL 2022-12-10 [facility] of 00:01:00 [place] [facility] COMPLETE BLOOD COUNT W/ 2022-12-10 Tanvi Tammy [facility] ty of DIFFERENTIAL 00:01:00 [place] [facility] COMPREHENSIVE METABOLIC PANEL 2022-12-10 Tammy Mike iversity of 00:01:00 [place] [facility] MAGNESIUM LEVEL 2022-12-10 TanviTammy [place] of 00:01:00 [place] [facility] PHOSPHORUS LEVEL 2022-12-10 Tanvi [facility] of 00:01:00 [place] [facility] PROTHROMBIN TIME 2022-12-10 Tanvi Tammy [place] of 00:01:00 [place] [facility] APTT 2022-12-10 Tanvi [facility] of 00:01:00 [place] [facility] LACTATE DEHYDROGENASE 2022-12-10 TanviTammy [place] of 00:01:00 [place] [facility] Results CBC 2022-12-10 Tanvi Tammy [place] of 00:01:00 [place] [facility] MANUAL DIFFERENTIAL 2022-12-10 [facility] o f 00:01:00 [facility] Dothanevelin [facility] GLUCOSE LEVEL 2022-12-10 [facility] of 00:01:00 [place] [facility] BLOOD UREA NITROGEN 2022-12-10 [facility] o f 00:01:00 [place] [facility] ELECTROLYTE PANEL 2022-12-10 [facility] of 00:01:00 [place] [facility] SERUM CREATININE 2022-12-10 [facility] of 00:01:00 [place] [facility] .GLOMERULAR FILTRATION RATE 2022-12-10 [facility] ersity of 00:01:00 [place] [facility] CALCIUM LEVEL TOTAL 2022-12-10 [facility] o f 00:01:00 [place] [facility] ALBUMIN LEVEL 2022-12-10 [facility] of 00:01:00 [place] [facility] ALKALINE PHOSPHATASE 2022-12-10 [facility] of 00:01:00 [place] [facility] ALANINE AMINOTRANSFERASE 2022-12-10 [facility] ity of 00:01:00 [place] [facility] ASPARTATE AMINOTRANSFERASE 2022-12-10 [facility] rsity of 00:01:00 [place] [facility] TOTAL PROTEIN 2022-12-10 [facility] of 00:01:00 [place] [facility] FRACTIONATED BILIRUBIN 2022-12-10 [facility] 00:[facility]00 [place] [facility] HP MDA CHRISTINE MUTATION 2022-12-04 Lorena Hdez Uni versity of ANALYSIS PRECISION PANEL 16:56:00 [facility] HP SOLID TUMOR GENOMIC 2022-12-04 Lorena Hdez U niversity of ASSAY FUSIONS 2018 16:56:00 [place] MD Portillo rson INTERPRETATION AND REPORT [facility] HP MOLECULAR BLOOD COLLECTION 2022-12-04 Lorena Hdez [facility] of 16:56:00 [place] MD Anderso [facility] MRI SKULL BASE WITH AND 2022-11-30 Lorena Hdez Uni versity of WITHOUT CONTRAST 17:12:54 Bere blank [facility] PETCT CONTRAST ENHANCED 2022-11-27 [facility] of INITIAL TREATMENT STRATEGY 21:57:06 Ashleigh Blackburn MD [facility] POC GLUCOSE SCREEN 2022-11-27 [facility] of 19:06:00 Ashleigh [place] Liane olivier [facility] POC GLUCOSE SCREEN 2022-11-27 [facility] of 18:29:00 Ashleigh olivier [facility] NGS BLOOD CONTROL 2022-11-26 Lorena Hdez [facility] sity of 19:07:00 [place] MD Rob [facility] COMPLETE BLOOD COUNT W/ 2022-11-26 Lorena Hdez Uni versity of DIFFERENTIAL 19:07:00 [place] MD Rob [facility] COMPREHENSIVE METABOLIC PANEL 2022-11-26 Lorena Hdez [facility] of 19:07:00 [place] MD Liane olivier [facility] FREE THYROXINE 2022-11-26 Lorena Hdez [facility] of 19:07:00 [facility] LACTATE DEHYDROGENASE 2022-11-26 Lorena Hdez [facility] rsity of 19:07:00 [place] MD Liane olivier [facility] MAGNESIUM LEVEL 2022-11-26 Lorena Hdez [place] of 19:07:00 [place] [facility] PHOSPHORUS LEVEL 2022-11-26 [facility] of 19:07:00 [place] Liane olivier [facility] URIC ACID 2022-11-26 [facility] of 19:07:00 [facility] VITAMIN D 25 HYDROXY LEVEL 2022-11-26 Lorena Hdez [place] of 19:07:00 [place] MD Liane olivier [facility] THYROID STIMULATING HORMONE 2022-11-26 Lorena Hdez [place] of 19:07:00 [facility] Dothanevelin [facility] APTT 2022-11-26 Lorena Hdez [place] of 19:07:00 [place] MD Liane olivier [facility] PROTHROMBIN TIME 2022-11-26 Hdez, [facility] of 19:07:00 [place] MD Liane olivier [facility] Results CBC 2022-11-26 [facility] of 19:07:00 [place] MD Liane olivier [facility] MANUAL DIFFERENTIAL 2022-11-[address] [facility] ity of 19:07:00 [place] [facility] GLUCOSE LEVEL 2022-11-26 [facility] of 19:07:00 [place] Liane olivier [facility] BLOOD UREA NITROGEN 2022-11-26 [facility] ity of 19:07:00 [place] [facility] soy [facility] ELECTROLYTE PANEL 2022-11-26 [facility] of 19:07:00 [place] [facility] SERUM CREATININE 2022-11-26 [facility]ona [facility]wood [facility] of 19:07:00 [place] [facility] .GLOMERULAR FILTRATION RATE 2022-11-26 [facility]wood [facility] of 19:07:00 [place] [facility] [place] CALCIUM LEVEL TOTAL 2022-11-26 [facility]ona [facility] ity of 19:07:00 [place] [facility] ALBUMIN LEVEL 2022-11-26 [facility] of 19:07:00 [place] [facility] ALKALINE PHOSPHATASE 2022-11-26 [facility] sity of 19:07:00 [place] Liane olivier [facility] ALANINE AMINOTRANSFERASE 2022-11-26 Simona Hdezfer Kayla Un iversity of 19:07:00 [place] MD Liane olivier [facility] ASPARTATE AMINOTRANSFERASE 2022-11-26 [facility] of 19:07:00 [facility] TOTAL PROTEIN 2022-11-26 [facility] of 19:07:00 [place] [facility] Hospitalcl[facility] olivier [facility] FRACTIONATED BILIRUBIN 2022-11-26 Lemuel [facility] ersity of 19:07:00 [place] [facility] ANA CRISTINA GRIFFIN [id number] FUSION ANALYSIS 2022-11-26 Hdez [facility] of MATERIAL REQUEST 18:43:02 [place] MD Carreon [facility] ANA CRISTINA GRIFFIN ALK MUTATION ANALAYSIS 2022-11-26 Lorena Hdez [facility] of MATERIAL REQUEST 18:43:02 Bere Carreon [facility] AP [id number] FUSION ANALYSIS 2022-11-26 Lorena Hdez [place] of MATERIAL REQUEST 18:43:02 [place] MD [facility] AP EGFR MUTATION MATERIAL 2022-11-26 Lorena Hdez [facility] of REQUEST 18:43:02 Bere Rob [facility] AP ERBB2 MUTATION 2022-11-26 Lorena Hdez [facility] sity of ANALAYSIS MATERIAL REQUEST 18:43:02 [place] [facility] AP MTOR MATERIAL REQUEST 2022-11-26 [facility] 18:43:02 [place] [facility] AP PTEN MUTATION MATERIAL 2022-11-26 Lorena Hdez [facility] of REQUEST 18:43:02 [place] [facility] AP IHC PD-L1 MATERIAL REQUEST 2022-11-26 Lorena Hdez [facility] 18:43:02 [place] [facility] AP IHC HER2/MELISSA MATERIAL 2022-11-26 Lorena Hdez Un iversity of REQUEST 18:43:02 [place] [facility] VIRUS AB SCREEN 2022-11-17 Red Posada [place] of W/REFLEX HCV PCR 18:11:00 [place] [facility] COMPREHENSIVE METABOLIC PANEL 2022-11-17 Red [facility] 18:11:00 [place] [facility] COMPLETE BLOOD COUNT W/ 2022-11-17 Red Pos[facility] ersity of DIFFERENTIAL 18:11:00 [place] MD Rob [facility] APTT 2022-11-17 Red Posada [place] f 18:11:00 [place] MD Rob [facility] PROTHROMBIN TIME 2022-11-17 Red Posada [place] of 18:11:00 [place] [facility] CORTISOL 2022-11-17 Red Posada [facility] o f 18:11:00 [place] [facility] ADRENOCORTICOTROPIC HORMONE 2022-11-17 Red [facility] 18:11:00 [place] [facility] ESTRADIOL LEVEL 2022-11-17 Antonella [facility] o f 18:11:00 [place] [facility] TESTOSTERONE LEVEL 2022-11-17 [facility] 18:11[facility]00 [place] [facility] FOLLICLE STIMULATING HORMONE 2022-11-17 Red Posada [facility] of LEVEL 18:11:00 [place] [facility] LUTEINIZING HORMONE 2022-11-17 Red Posada [facility] ty of 18:11:00 [place] [facility] THYROID STIMULATING HORMONE 2022-11-17 Red Posada [facility] of 18:11:00 [place] [facility] FREE THYROXINE 2022-11-17 Antonella [facility] o f 18:11:00 [place] [facility] TOTAL T3 2022-11-17 [facility] 18:11:00 [place] [facility] INSULIN LIKE GROWTH FACTOR 1 2022-11-17 Red Posada [facility] of 18:11:00 [place] [facility] PROLACTIN 2022-11-17 Antonella [facility] o f 18:11:00 [place] [facility] GLUCOSE LEVEL 2022-11-17 Antonella [facility] o f 18:11:00 [place] [facility] BLOOD UREA NITROGEN 2022-11-17 Red Posada [facility] ty of 18:11:00 [place] [facility] ELECTROLYTE PANEL 2022-11-17 Red Posada [facility] of 18:11:00 [place] [facility] SERUM CREATININE 2022-11-17 Red Posada [facility] of 18:11:00 [place] [facility] .GLOMERULAR FILTRATION RATE 2022-11-17 Red Posada [facility] of 18:11:00 [place] [facility] CALCIUM LEVEL TOTAL 2022-11-17 Red Posada [facility] ty of 18:11:00 [place] [facility] ALBUMIN LEVEL 2022-11-17 Red Posada [place] [facility] f 18:11:00 [place] [facility] ALKALINE PHOSPHATASE 2022-11-17 Red Posada [facility] of 18:11:00 [place] [facility] ALANINE AMINOTRANSFERASE 2022-11-17 Red Posada Uni versity of 18:11:00 [place] [facility] ASPARTATE AMINOTRANSFERASE 2022-11-17 Red Posada [facility] of 18:11:00 [place] [facility] TOTAL PROTEIN 2022-11-17 Red Posada [place] f 18:11:00 [place] [facility] FRACTIONATED BILIRUBIN 2022-11-17 Red Posada Unive rsity of 18:11:00 [place] [facility] Results CBC 2022-11-17 Red Posada [place] f 18:11:00 [place] [facility] MANUAL DIFFERENTIAL 2022-11-17 [facility] 18:11:00 [place] [facility] PATHOLOGY OUTSIDE 2022-10-16 [facility] of INTERPRETATION 00:00:00 [place] [facility] FLU VACC (), 6 MO-64 2022-09-21 Nereida Sheriff Un iversity of YRS, .5ML, IM, QUAD 15:41:00 [facility] (FLUCELVAX) Branch CT HEAD WO CONTRAST 2022-08-28 [facility] [place] [facility] f 14:23:13 [facility] POCT MOLECULAR FLU 2022-08-25 [facility] [place] of 15:55:00 [facility] FL UPPER GI INCLUDING ACCOUNT SUPPORT REP 2022-07-28 Angel[address] Mathis-Flakita [facility] 11:59:00 [facility] POCT-GLUCOSE METER 2022-01-[address] [facility] 13:43:00 [facility] Center REPORT OF PROCEDURE - 2022-01-09 Dewayne Wise [facility] URL 12:37:11 [facility] Center REPORT OF PROCEDURE - 2022-01-09 Dewayne Wise [facility] URL 12:36:24 [facility] TISSUE EXAM 2022-01-[address] [facility] 11:31:00 [facility] ESOPHAGEAL BALLOON 2022-01-[address] [facility] PROVOCATION STUDY 10:53:00 [facility] COLONOSCOPY, WITH POLYPECTOMY 2022-01-[address] [facility] 10:53:00 [facility] ENDOSCOPY, UPPER GI TRACT, 2022-01-[address] [facility] WITH BIOPSY 10:53:00 [facility] POCT-GLUCOSE METER 2022-01-[address] [facility] 09:59:00 [facility] SARS-COV2/RT-PCR ([facility] & REF 2022-01-[address] [facility] LABS) 07:55:00 [facility] MANOMETRY, ANORECTAL 2021-12-[address] [facility] 09:24:00 [facility] Sleeve resection of stomach 2017-09-01 Dillon Seay 00:00:00 Laparoscopic adjustable 2013-11-01 [facility] gastric banding<sup>1</sup> 06:00:00 Removal of gastric band 2013-11-01 Yossi Seay 00:00:00 Abdominal hysterectomy 2011-11-01 Yossi Seay 00:00:00 Laparoscopic adjustable 2010-11-01 [facility] gastric banding 00:00:00 Appendectomy 2009-11-01 Yossi Seay 00:00:00 Cholecystectomy 2009-11-01 [facility] 00:00:00 Knee joint operation 2006-11-01 Yossi torres 06:00:00 Shoulder joint operations 2006-11-01 Maynor Tsang 06:00:00 section 1984-11-01 Yossi olivier 00:00:[address] [facility] Procedure on Shoulder [facility] Maintenance of Gastric Band [facility] Gallbladder Surgery [facility] Appendectomy [facility] Plan of Care Planned Activity Planned Date Details Comments Source Future Scheduled 2032-01-10 Screening for malignant [facility] 00:00:00 neoplasm of colon Medical Ce nter (procedure) [code = 860974359] Future Scheduled 2032-01-10 Screening for malignant [facility] 00:00:00 neoplasm of colon Medical Ce nter (procedure) [code = 152046782] Future Scheduled 2032-01-10 Screening for malignant [facility] 00:00:00 neoplasm of colon Medical Ce nter (procedure) [code = 581366002] Future Scheduled 2032-01-10 Screening for malignant [facility] 00:00:00 neoplasm of colon Medical Ce nter (procedure) [code = 029559031] Future Scheduled 2032-01-10 Screening for malignant [facility] 00:00:00 neoplasm of colon Medical Ce nter (procedure) [code = 456868037] Future Scheduled 2032-01-10 Screening for malignant [facility] 00:00:00 neoplasm of colon Medical Ce nter (procedure) [code = 122999294] Future Scheduled 2032-01-10 Screening for malignant [facility] 00:00:00 neoplasm of colon Medical Ce nter (procedure) [code = 136213612] Future Scheduled 2032-01-10 Screening for malignant [facility] 00:00:00 neoplasm of colon Medical Ce nter (procedure) [code = 980461484] Future Scheduled 2032-01-10 Screening for malignant [facility] 00:00:00 neoplasm of colon Medical Ce nter (procedure) [code = 106383722] Future Scheduled 2032-01-10 Screening for malignant [facility] 00:00:00 neoplasm of colon Medical Ce nter (procedure) [code = 368267784] Future Scheduled 2032-01-10 Screening for malignant [facility] 00:00:00 neoplasm of colon Medical Ce nter (procedure) [code = 819048397] Future Scheduled 2032-01-10 Screening for malignant [facility] 00:00:00 neoplasm of colon Medical Ce nter (procedure) [code = 393060073] Future Scheduled 2032-01-10 Screening for malignant [facility] 00:00:00 neoplasm of colon Medical Ce nter (procedure) [code = 608323311] Future Scheduled 2032-01-10 Screening for malignant [facility] 00:00:00 neoplasm of colon Medical Ce nter (procedure) [code = 947201190] Future Scheduled 2032-01-10 Screening for malignant [facility] 00:00:00 neoplasm of colon Medical Ce nter (procedure) [code = 235469607] Future Scheduled 2032-01-10 Screening for malignant [facility] 00:00:00 neoplasm of colon Medical Ce nter (procedure) [code = 687719879] Future Scheduled 2032-01-10 Screening for malignant [facility] 00:00:00 neoplasm of colon Medical Ce nter (procedure) [code = 311818940] Future Scheduled 2032-01-10 Screening for malignant [facility] 00:00:00 neoplasm of colon Medical Ce nter (procedure) [code = 464195457] Future Scheduled 2032-01-10 Screening for malignant [facility] 00:00:00 neoplasm of colon Medical Ce nter (procedure) [code = 279533929] Future Scheduled 2032-01-10 Screening for malignant [facility] 00:00:00 neoplasm of colon Medical Ce nter (procedure) [code = 619045503] Future Scheduled 2032-01-10 Screening for malignant [facility] 00:00:00 neoplasm of colon Medical Ce nter (procedure) [code = 739757229] Future Scheduled 2032-01-10 Screening for malignant [facility] 00:00:00 neoplasm of colon Medical Ce nter (procedure) [code = 508984611] Future Scheduled 2032-01-10 Screening for malignant [facility] 00:00:00 neoplasm of colon Medical Ce nter (procedure) [code = 016810252] Future Scheduled 2032-01-10 Screening for malignant [facility] 00:00:00 neoplasm of colon Medical Ce nter (procedure) [code = 910943413] Future Scheduled 2032-01-10 Screening for malignant [facility] 00:00:00 neoplasm of colon Medical Ce nter (procedure) [code = 607473993] Future Scheduled 2032-01-10 Screening for malignant [facility] 00:00:00 neoplasm of colon Medical Ce nter (procedure) [code = 605855265] Future Scheduled 2032-01-10 Screening for malignant [facility] 00:00:00 neoplasm of colon Medical Ce nter (procedure) [code = 965460450] Future Scheduled 2032-01-10 Screening for malignant [facility] 00:00:00 neoplasm of colon Medical Ce nter (procedure) [code = 023099376] Future Scheduled 2032-01-10 Screening for malignant [facility] 00:00:00 neoplasm of colon Medical Ce nter (procedure) [code = 879976647] Future Scheduled 2032-01-10 Screening for malignant [facility] 00:00:00 neoplasm of colon Medical Ce nter (procedure) [code = 118783267] Future Scheduled 2032-01-10 Screening for malignant [facility] 00:00:00 neoplasm of colon Medical Ce nter (procedure) [code = 836064992] Future Scheduled 2032-01-10 Screening for malignant [facility] 00:00:00 neoplasm of colon Medical Ce nter (procedure) [code = 622620229] Future Scheduled 2032-01-10 Screening for malignant [facility] 00:00:00 neoplasm of colon Medical Ce nter (procedure) [code = 201240228] Future Scheduled 2032-01-10 Screening for malignant [facility] 00:00:00 neoplasm of colon Medical Ce nter (procedure) [code = 804177275] Future Scheduled 2032-01-10 Screening for malignant [facility] 00:00:00 neoplasm of colon Medical Ce nter (procedure) [code = 929365671] Future Scheduled 2032-01-10 Screening for malignant [facility] 00:00:00 neoplasm of colon Medical Ce nter (procedure) [code = 851027791] Future Scheduled 2032-01-10 Screening for malignant [facility] 00:00:00 neoplasm of colon Medical Ce nter (procedure) [code = 936559495] Future Scheduled 2032-01-10 Screening for malignant [facility] 00:00:00 neoplasm of colon Medical Ce nter (procedure) [code = 869519223] Future Scheduled 2023-07-02 Influenza Vaccine (#1) C [...] Medical Ce nter Vaccine (#1)] Future Scheduled 2023-06-08 COVID-19 Vaccination (4 [facility] Test 16:26:02 - Moderna risk series) Bere Voss [code = COVID-19 Cancer [facility] Vaccination (4 - Moderna risk series)] Future Scheduled 2023-05-18 COVID-19 Vaccination (4 [facility] Test 09:42:41 - Booster for Moderna [place] [facility] series) [code = COVID-19 [facility] Vaccination (4 - Booster for Moderna series)] Future Scheduled 2023-05-18 COVID-19 Vaccination (4 [facility] Test 09:42:41 - Booster for Moderna [place] [facility] series) [code = COVID-19 [facility] Vaccination (4 - Booster for Moderna series)] Future Scheduled 2023-05-18 COVID-19 Vaccination (4 [facility] Test 09:42:41 - Booster for Moderna [place] [facility] series) [code = COVID-19 [facility] Vaccination (4 - Booster for Moderna series)] Future Scheduled 2023-04-13 COVID-19 Vaccination (4 [facility] Test 10:02:18 - Booster for Moderna [place] [facility] series) [code = COVID-19 [facility] Vaccination (4 - Booster for Moderna series)] Future Scheduled 2023-03-30 COVID-19 Vaccination (4 [facility] Test 11:51:04 - Booster for Moderna [place] [facility] series) [code = COVID-19 [facility] Vaccination (4 - Booster for Moderna series)] Future Scheduled 2023-03-19 COVID-19 Vaccination (4 [facility] Test 08:32:18 - Booster for Moderna [place] [facility] series) [code = COVID-19 [facility] Vaccination (4 - Booster for Moderna series)] Future Scheduled 2023-03-12 COVID-19 Vaccination (4 [facility] Test 07:01:22 - Booster for Moderna [place] [facility] series) [code = COVID-19 [facility] [...] [facility] 00:00:00 [code = 75395789] Medical Ce nter Future Scheduled 2012 Lipid panel (procedure) [facility] 00:00:00 [code = 26245396] Medical Ce nter Future Scheduled 2012 Lipid panel (procedure) [facility] 00:00:00 [code = 75750506] Medical Ce nter Future Scheduled 2012 Lipid panel (procedure) [facility] 00:00:00 [code = 48848449] Medical Ce nter Future Scheduled 2012 Lipid panel (procedure) [facility] 00:00:00 [code = 49376822] Medical Ce nter Future Scheduled 2012 Lipid panel (procedure) [facility] 00:00:00 [code = 43916216] Medical Ce nter Future Scheduled 2012 Lipid panel (procedure) [facility] 00:00:00 [code = 51714610] Medical Ce nter Future Scheduled 2012 Lipid panel (procedure) [facility] 00:00:00 [code = 81140635] Medical Ce nter Future Scheduled 2012 Lipid panel (procedure) [facility] 00:00:00 [code = 71082779] Medical Ce nter Future Scheduled 2012 Lipid panel (procedure) [facility] 00:00:00 [code = 01966409] Medical Ce nter Future Scheduled 2012 Lipid panel (procedure) [facility] 00:00:00 [code = 19522137] Medical Ce nter Future Scheduled 2012 Lipid panel (procedure) [facility] 00:00:00 [code = 71658227] Medical Ce nter Future Scheduled 2012 Lipid panel (procedure) [facility] 00:00:00 [code = 74232876] Medical Ce nter Future Scheduled 2012 Lipid panel (procedure) [facility] 00:00:00 [code = 93601265] Medical Ce nter Future Scheduled 2012 Lipid panel (procedure) [facility] 00:00:00 [code = 47112861] Medical Ce nter Future Scheduled 2012 Lipid panel (procedure) [facility] 00:00:00 [code = 98151545] Medical Ce nter Future Scheduled 2012 Lipid panel (procedure) [facility] 00:00:00 [code = 78634332] Medical Ce nter Future Scheduled 2012 Lipid panel (procedure) [facility] 00:00:00 [code = 96770331] Medical Ce nter Future Scheduled 2012 Lipid panel (procedure) [facility] 00:00:00 [code = 45061097] Medical Ce nter Future Scheduled 2011-11-02 MEDICARE [...] cervix Medical C enter (procedure) [code = 741871405] Future Scheduled 1988 Screening for malignant [facility] 00:00:00 neoplasm of cervix Medical C enter (procedure) [code = 409146563] Future Scheduled 1988 Screening for malignant [facility] 00:00:00 neoplasm of cervix Medical C enter (procedure) [code = 379782995] Future Scheduled 1988 Screening for malignant [facility] 00:00:00 neoplasm of cervix Medical C enter (procedure) [code = 633876021] Future Scheduled 1988 Screening for malignant [facility] 00:00:00 neoplasm of cervix Medical C enter (procedure) [code = 566196601] Future Scheduled 1988 Screening for malignant [facility] 00:00:00 neoplasm of cervix Medical C enter (procedure) [code = 162076266] Future Scheduled 1988 Screening for malignant [facility] 00:00:00 neoplasm of cervix Medical C enter (procedure) [code = 878236805] Future Scheduled 1988 Screening for malignant [facility] 00:00:00 neoplasm of cervix Medical C enter (procedure) [code = 138333465] Future Scheduled 1988 Screening for malignant [facility] 00:00:00 neoplasm of cervix Medical C enter (procedure) [code = 629863030] Future Scheduled 1988 Screening for malignant [facility] 00:00:00 neoplasm of cervix Medical C enter (procedure) [code = 130775192] Future Scheduled 1988 Screening for malignant [facility] 00:00:00 neoplasm of cervix Medical C enter (procedure) [code = 628171435] Future Scheduled 1988 Screening for malignant [facility] 00:00:00 neoplasm of cervix Medical C enter (procedure) [code = 847048339] Future Scheduled 1988 Screening for malignant [facility] 00:00:00 neoplasm of cervix Medical C enter (procedure) [code = 848915170] Future Scheduled 1988 Screening for malignant [facility] 00:00:00 neoplasm of cervix Medical C enter (procedure) [code = 433021865] Future Scheduled 1988 Screening for malignant [facility] 00:00:00 neoplasm of cervix Medical C enter (procedure) [code = 358381101] Future Scheduled 1988 Screening for malignant [facility] 00:00:00 neoplasm of cervix Medical C enter (procedure) [code = 519504575] Future Scheduled 1988 Screening for malignant [facility] 00:00:00 neoplasm of cervix Medical C enter (procedure) [code = 248422098] Future Scheduled 1988 Screening for malignant [facility] 00:00:00 neoplasm of cervix Medical C enter (procedure) [code = 761703240] Future Scheduled 1988 Screening for malignant [facility] 00:00:00 neoplasm of cervix Medical C enter (procedure) [code = 561272274] Future Scheduled 1986 DTAP/TDAP/TD VACCINES (1 [facility] [...] screening Medical Cent er (procedure) [code = 508452618] Future Scheduled [address] [facility] virus screening [facility] Cent [facility] (procedure) [code = 507193330] Future Scheduled [address] Human immunodeficiency [facility] 00:00:00 virus screening [facility] Cent er (procedure) [code = 487004586] Future Scheduled [address] Human immunodeficiency [facility] 00:00:00 virus screening Medical Cent er (procedure) [code = 042564700] Future Scheduled [address] Human [address] [facility] 00:00:00 virus screening Medical Cent er (procedure) [code = 936111639] Future Scheduled 1967 CT Colonography (combo) [facility] 00:00:00 [code = CT Colonography [facility] (combo)] Future Scheduled 1967 Screening for malignant [facility] 00:00:00 neoplasm of colon Medical Ce nter (procedure) [code = 162952896] Future Scheduled 1967 Screening for malignant [facility] 00:00:00 neoplasm of colon Medical Ce nter (procedure) [code = 976671840] Future Scheduled 1967 Sigmoidoscopy [facility]code [facility] Medical Cente r Future Scheduled 1967 Screening for malignant [facility] 00:00:00 neoplasm of breast Medical C enter (procedure) [code = 174923729] Future Scheduled 1967 CT Colonography (combo) [facility] 00:00:00 [code = CT Colonography [facility] Center (combo)] Future Scheduled 1967 Screening for malignant [facility] 00:00:00 neoplasm of colon Medical Ce nter (procedure) [code = 329609847] Future Scheduled 1967 Screening for malignant [facility] 00:00:00 neoplasm of colon Medical Ce nter (procedure) [code = 835861030] Future Scheduled 1967 Sigmoidoscopy [facility]code = [facility]] Medical Cente r Future Scheduled 1967 Screening for malignant [facility] 00:00:00 neoplasm of breast Medical C enter (procedure) [code = 377232048] Future Scheduled 1967 CT Colonography (combo) [facility] 00:00:00 [code = CT Colonography [facility] Center (combo)] Future Scheduled 1967 Screening for malignant [facility] 00:00:00 neoplasm of colon Medical Ce nter (procedure) [code = 397649439] Future Scheduled 1967 Screening for malignant [facility] 00:00:00 neoplasm of colon Medical Ce nter (procedure) [code = 513671786] Future Scheduled 1967 Sigmoidoscopy [facility]code [facility]] Medical Cente r Future Scheduled 1967 Screening for malignant [facility] 00:00:00 neoplasm of breast Medical C enter (procedure) [code = 991126787] Future Scheduled 1967 CT Colonography (combo) [facility] 00:00:00 [code = CT Colonography Medi [facility] Center (combo)] Future Scheduled 1967 Screening for malignant [facility] 00:00:00 neoplasm of colon Medical Ce nter (procedure) [code = 749239030] Future Scheduled 1967 Screening for malignant [facility] 00:00:00 neoplasm of colon Medical Ce nter (procedure) [code = 831623910] Future Scheduled 1967 Sigmoidoscopy [facility]code = [facility] Medical Cente r Future Scheduled 1967 Screening for malignant [facility] 00:00:00 neoplasm of breast Medical C enter (procedure) [code = 269046756] Future Scheduled 1967 CT Colonography (combo) [facility] 00:00:00 [code = CT Colonography [facility] (combo)] Future Scheduled 1967 Screening for malignant [facility] 00:00:00 neoplasm of colon Medical Ce nter (procedure) [code = 335348433] Future Scheduled 1967 Screening for malignant [facility] 00:00:00 neoplasm of colon Medical Ce nter (procedure) [code = 539937283] Future Scheduled 1967 Sigmoidoscopy [facility] Screening [facility] malignant [facility] 00:00:00 neoplasm of breast Medical C enter (procedure) [code = 169439945] Future Scheduled 1967 CT Colonography (combo) [facility] 00:00:00 [code = CT Colonography [facility] (combo)] Future Scheduled 1967 Screening for malignant [facility] 00:00:00 neoplasm of colon Medical Ce nter (procedure) [code = 218082874] Future Scheduled 1967 Screening for malignant [facility] 00:00:00 neoplasm of colon Medical Ce nter (procedure) [code = 407439554] Future Scheduled 1967 Sigmoidoscopy [facility]code [facility] 1967 Screening for malignant [facility] 00:00:00 neoplasm of breast Medical C enter (procedure) [code = 476875462] Future Scheduled 1967 CT Colonography (combo) [facility] 00:00:00 [code = CT Colonography Medi mari Center (combo)] Future Scheduled 1967 Screening for malignant [facility] 00:00:00 neoplasm of colon Medical Ce nter (procedure) [code = 505774665] Future Scheduled 1967 Screening for malignant [facility] 00:00:00 neoplasm of colon Medical Ce nter (procedure) [code = 002998505] Future Scheduled 1967 Sigmoidoscopy [facility]code [facility] S[facility]oscopy] Medical Cente r Future Scheduled 1967 Screening for malignant [facility] 00:00:00 neoplasm of breast Medical C enter (procedure) [code = 421138832] Future Scheduled 1967 CT Colonography (combo) [facility] 00:00:00 [code = CT [facility] (combo)] Future Scheduled 1967 Screening for malignant [facility] 00:00:00 neoplasm of colon Medical Ce nter (procedure) [code = 545094845] Future Scheduled 1967 Screening for malignant [facility] 00:00:00 neoplasm of colon Medical Ce nter (procedure) [code = 660400365] Future Scheduled 1967 Sigmoidoscopy [code = [facility] Future Scheduled 1967 Screening for malignant [facility] 00:00:00 neoplasm of breast Medical C enter (procedure) [code = 575112993] Future Scheduled 1967 CT Colonography (combo) [facility] 00:00:00 [code = CT [facility] (combo)] Future Scheduled 1967 Screening for malignant [facility] 00:00:00 neoplasm of colon Medical Ce nter (procedure) [code = 634839998] Future Scheduled 1967 Screening for malignant [facility] 00:00:00 neoplasm of colon Medical Ce [facility]ter (procedure) [code = 156807929] Future Scheduled 1967 Sigmoidoscopy [code = [facility] S[facility]oscopy] [facility] Cent[facility] Future Scheduled 1967 Screening for malignant [facility] 00:00:00 neoplasm of breast Medical C enter (procedure) [code = 084524753] Future Scheduled 1967 CT Colonography (combo) [facility] 00:00:00 [code = CT [facility] (combo)] Future Scheduled 1967 Screening for malignant [facility] 00:00:00 neoplasm of colon Medical Ce nter (procedure) [code = 252654573] Future Scheduled 1967 Screening for malignant [facility] 00:00:00 neoplasm of colon Medical Ce nter (procedure) [code = 916567761] Future Scheduled 1967 Sigmoidoscopy [code = [facility] S[facility]oscopy] Medical Cent[facility] r Future Scheduled 1967 Screening for malignant [facility] 00:00:00 neoplasm of breast Medical C enter (procedure) [code = 204169858] Future Scheduled 1967 CT Colonography (combo) [facility] 00:00:00 [code = CT [facility] (com[facility])] Future Scheduled 1967 Screening for malignant [facility] 00:00:00 neoplasm of colon Medical Ce nter (procedure) [code = 581828165] Future Scheduled 1967 Screening for malignant [facility] 00:00:00 neoplasm of colon Medical Ce nter (procedure) [code = 446136330] Future Scheduled 1967 Sigmoidoscopy [code = [facility]oscopy] Medical Cent[facility] r Future Scheduled 1967 Screening for malignant [facility] 00:00:00 neoplasm of breast Medical C enter (procedure) [code = 952956350] Future Scheduled 1967 CT Colonography (combo) [facility] 00:00:00 [code = CT [facility] (combo)] Future Scheduled 1967 Screening for malignant [facility] 00:00:00 neoplasm of colon Medical Ce nter (procedure) [code = 674718785] Future Scheduled 1967 Screening for malignant [facility] 00:00:00 neoplasm of colon Medical Ce nter (procedure) [code = 763557725] Future Scheduled 1967 Sigmoidoscopy [code = [facility] S[facility]oscopy] Medical Cent[facility] r Future Scheduled 1967 Screening for malignant [facility] 00:00:00 neoplasm of breast Medical C enter (procedure) [code = 519090504] Future Scheduled 1967 CT Colonography (combo) [facility] 00:00:00 [code = CT [facility] (combo)] Future Scheduled 1967 Screening for malignant [facility] 00:00:00 neoplasm of colon Medical Ce nter (procedure) [code = 229614148] Future Scheduled 1967 Screening for malignant [facility] 00:00:00 neoplasm of colon Medical Ce nter (procedure) [code = 398838527] Future Scheduled 1967 Sigmoidoscopy [code = [facility] S[facility]oscopy] Medical Cente r Future Scheduled 1967 Screening for malignant [facility] 00:00:00 neoplasm of breast Medical C enter (procedure) [code = 122667573] Future Scheduled 1967 CT Colonography (combo) [facility] 00:00:00 [code = CT [facility] (combo)] Future Scheduled 1967 Screening for malignant [facility] 00:00:00 neoplasm of colon Medical Ce nter (procedure) [code = 068997596] Future Scheduled 1967 Screening for malignant [facility] 00:00:00 neoplasm of colon Medical Ce nter (procedure) [code = 236547621] Future Scheduled 1967 Sigmoidoscopy [code = [facility] S[facility]oscopy] Medical Cente r Future Scheduled 1967 Screening for malignant [facility] 00:00:00 neoplasm of breast Medical C enter (procedure) [code = 425233362] Future Scheduled 1967 CT Colonography (combo) [facility] 00:00:00 [code = CT [facility] (combo)] Future Scheduled 1967 Screening for malignant [facility] 00:00:00 neoplasm of colon Medical Ce nter (procedure) [code = 587377972] Future Scheduled 1967 Screening for malignant [facility] 00:00:00 neoplasm of colon Medical Ce nter (procedure) [code = 574270652] Future Scheduled 1967 Sigmoidoscopy [code = [facility] S[facility]oscopy] Medical Cente r Future Scheduled 1967 Screening for malignant [facility] 00:00:00 neoplasm of breast Medical C enter (procedure) [code = 604587991] Future Scheduled 1967 Screening for malignant [facility] 00:00:00 neoplasm of breast Medical C enter (procedure) [code = 169990302] Future Scheduled 1967 CT Colonography (combo) [facility] 00:00:00 [code = CT Colonography [facility] (combo)] Future Scheduled 1967 Screening for malignant [facility] 00:00:00 neoplasm of colon Medical Ce nter (procedure) [code = 658625688] Future Scheduled 1967 Screening for malignant [facility] 00:00:00 neoplasm of colon Medical Ce nter (procedure) [code = 597877599] Future Scheduled 1967 Sigmoidoscopy [code = [facility] S[facility]oscopy] Medical Cente r Future Scheduled 1967 CT Colonography (combo) [facility] 00:00:00 [code = CT Colonography [facility] (combo)] Future Scheduled 1967 Screening for malignant [facility] 00:00:00 neoplasm of colon Medical Ce nter (procedure) [code = 720479649] Future Scheduled 1967 Screening for malignant [facility] 00:00:00 neoplasm of colon Medical Ce nter (procedure) [code = 837430491] Future Scheduled 1967 Sigmoidoscopy [code = [facility] S[facility]oscopy] Medical Cente r Future Scheduled 1967 Screening for malignant [facility] 00:00:00 neoplasm of breast Medical C enter (procedure) [code = 570552499] Future Scheduled 1967 CT Colonography (combo) [facility] 00:00:00 [code = CT [facility] (combo)] Future Scheduled 1967 Screening for malignant [facility] 00:00:00 neoplasm of colon Medical Ce nter (procedure) [code = 638990121] Future Scheduled 1967 Screening for malignant [facility] 00:00:00 neoplasm of colon Medical Ce nter (procedure) [code = 229647940] Future Scheduled 1967 Sigmoidoscopy [code = [facility] 00:[facility] Sigmoidoscopy] Medical Cente r Future Scheduled 1967 Screening for malignant [facility] 00:00:00 neoplasm of breast Medical C enter (procedure) [code = 546582982] Future Scheduled 1967 CT Colonography (combo) [facility] 00:00:00 [code = CT [facility]ography [facility] (combo)] Future Scheduled 1967 Screening for malignant [facility] 00:00:00 neoplasm of colon Medical Ce nter (procedure) [code = 394391855] Future Scheduled 1967 Screening for malignant [facility] 00:00:00 neoplasm of colon Medical Ce nter (procedure) [code = 785816372] Future Scheduled 1967 Sigmoidoscopy [code = [facility] S[facility]oscopy] Medical Cente r Future Scheduled 1967 Screening for malignant [facility] 00:00:00 neoplasm of breast Medical C enter (procedure) [code = 390815099] Encounters Start End Encounter Admission Attending Care Care Encounter Source Date/Time Date/Time Type Type Clinicians Facility Department ID 2022-11-17 Outpatient SYSTEM, TAO BURGER [id number] 12:15:21 PROVIDER Lauri o n 2021-08-29 Emergency [facility] [id number] [facility] 21:08:39 ity [facility] 2020-08-23 Inpatient Tapan Martin [facility] [id number] [facility] 15:14:00 14 [facility] 2019-12-07 Inpatient EL Natasha [facility] ENDO [id number] [facility] 10:00:00 Zacarias 32 [facility] 2023-08-09 2023-08-09 [facility] [id number] Univers 09:45:00 09:45:00 NEREIDA ity [facility] 2023-06-08 2023-06-08 Documentat Jenny, 1.2.840.1 [id number] Univers 00:00:00 00:00:00 ion Jenna 68655.1.1 ity of 3.412.2.7 [place] .3.957766 .8 [facility] 2023-06-07 2023-06-07 RefOLGA Reynolds 1.2.840.114 [id number] Univers 00:00:00 00:00:00 Shelby WILSON 350.1.13.10 ity of [facility] 4.2.7.2.686 Frankie as [id number] [address] 2023-06-06 2023-06-06 Rohith Hdez 1.2.840.1 [id number] Univers 00:00:00 00:00:00 Lorena 09178.1.1 ity of [place] 3.412.2.7 [place] .3.644607 MD Soares8 [facility] 2023-06-06 2023-06-06 [facility] 1.2.840.114 [id number] Univers 00:00:00 00:00:00 [facility] 350.1.13.10 it y of [place] 4.2.7.2.686 Frankie as JAVIER?BLEA [id number] [address] MEDICAL OFFICE BUILDING 2023-05-26 2023-05-27 Emergency X [facility] ERT [id number] Univers 20:55:00 00:30:00 CTRIVERA ity [facility] 2023-05-26 2023-05-27 Emergency [facility] 1.2.206.695 [id number] Univers 20:55:00 00:30:00 Destiney [facility] 350.1.13.10 ity of [place] 4.2.7.2.686 [place] [facility] [id number] [address] 2023-05-27 2023-05-27 [facility] 1.2.840.114 [id number] Univers 00:00:00 00:00:00 Lee HEALTH 350.1.13.10 it y of [place] 4.2.7.2.686 Frankie as JAVIER?BLEA [phone] [address] OFFICE [facility] 2023-05-26 2023-05-26 Telemedici Jose, 1.2.840.1 [id number] Univers 15:30:00 16:00:00 ne Seliece 76397.1.1 ity of 3.412.2.7 [place] .3.876830 MD Soares8 [facility] 2023-05-26 2023-05-26 Telephone Jose, 1.2.840.1 [id number] Univers 00:00:00 00:00:00 Seliece 98600.1.1 ity of 3.412.2.7 [place] .3.308700 MD Soares8 [facility] 2023-05-26 2023-05-26 Telephone Jenny, 1.2.840.1 [id number] Univers 00:00:00 00:00:00 Jenna 17964.1.1 ity of 3.412.2.7 [place] .3.212178 MD Soares8 [facility] 2023-05-26 2023-05-26 [facility] 1.2.840.114 [id number] Univers 00:00:00 00:00:00 [facility] 350.1.13.10 it y [facility] 4.2.7.2.686 Frankie as JAVIER?BLEA [id number] [address] 2023-05-25 2023-05-25 Orders Jose, 1.2.840.1 [id number] Univers 00:00:00 00:00:00 Only Seliece 02790.1.1 ity of 3.412.2.7 [place] .3.884719 MD [facility] [place] 2023-05-24 2023-05-24 Outpatient [facility] [id number] 11:35:09 12:20:42 NO Carreon [facility] 2023-05-24 2023-05-24 Telephone No Burt Soy. 1.2.840.1 [id number] [facility] 11:00:00 12:20:42 Freya Kimball A 97243.1.1 ity of 3.412.2.7 [place] .3.004415 MD Soares8 [facility] [place] 2023-05-21 2023-05-21 Documentat Nabil, 1.2.840.1 [id number] Univers 00:00:00 00:00:00 ion Nereida Johnston 18434.1.1 it y of 3.412.2.7 [place] .3.289739 MD Soares8 [facility] 2023-05-21 2023-05-21 Documentat Jerry 1.2.840.1 [id number] Univers 00:00:00 00:00:00 ion Akil Peñaloza 69500.1.1 ity of 3.412.2.7 [place] .3.752031 MD Soares8 [facility] 2023-05-18 2023-05-18 Telephone Thao Burtreinaldo Otto 1.2.840.1 [id number] Univers 14:00:00 14:30:00 Freya Kimball 97853.1.1 ity of 3.412.2.7 [place] .3.270671 MD Soares8 [facility] 2023-05-18 2023-05-18 Telephone Thao Diazreinaldo Otto 1.2.840.1 [id number] Univers 14:00:00 14:30:00 Freya Kimball 10076.1.1 ity of 3.412.2.7 [place] .3.713429 MD Soares8 [facility] [place] 2023-05-11 2023-05-11 Telephone Jose 1.2.840.1 [id number] Univers 00:00:00 00:00:00 Seliece 05524.1.1 ity of 3.412.2.7 [place] .3Rodger779383 MD Blair [facility] 2023-05-11 2023-05-11 Telephone Garcia, 1.2.840.1 [id number] [id number] Univers 00:00:00 00:00:00 Marily 76376.1.1 ity of 3.412.2.7 [place] .3Rodger716635 MD Soares8 [facility] 2023-05-05 2023-05-05 OLGA Yost 1.2.840.114 [id number] Univers 00:00:00 00:00:00 Deyanira WILSON 350.1.13.10 it y of [facility] 4.2.7.2.686 Frankie as [phone] [place] [address] [place] 2023-05-02 2023-05-02 Telephone Raymond, 1.2.840.1 [id number] Univers 00:00:00 00:00:00 No N. 85936.1.1 it y of 3.412.2.7 [place] .3Rodger900708 MD Soares8 [facility] 2023-05-02 2023-05-02 Telephone Raymond, 1.2.840.1 [id number] Univers 00:00:00 00:00:00 No N. 54040.1.1 it y of 3.412.2.7 [place] .3Rodger447590 MD Soares8 [facility] 2023-04-22 2023-04-22 Follow-Up [place], 1.2.840.1 [id number] [id number] Univers 14:30:00 16:41:41 Winter 62170.1.1 ity of [place] 3.412.2.7 [place] .3Rodger010763 MD Soares8 [facility] 2023-04-22 2023-04-22 Follow-Up [facility], 1.2.840.1 [id number] 1105 [id number] Univers 14:30:00 16:41:41 Winter 25283.1.1 ity of [place] 3.412.2.7 [place] .3.999995 MD Blair [facility] 2023-04-22 2023-04-22 Follow-Up Kenny Power, 1.2.840.1 [id number] Univers 15:40:00 16:37:58 Celyne 29956.1.1 ity of 3.412.2.7 [place] .3.442534 MD Soares8 [facility] 2023-04-22 2023-04-22 Follow-Up KYLAH Power, 1.2.840.1 [id number] Univers 15:40:00 16:37:58 Celyne 98166.1.1 ity of 3.412.2.7 [place] .3.754959 MD Blair [facility] 2023-04-22 2023-04-22 Ancillary Luu, 1.2.840.1 [id number] [id number] Univers 12:15:00 14:00:00 Procedure Winter 50438.1.1 it y of [place] 3.412.2.7 [place] .3.497518 MD [facility] 2023-04-22 2023-04-22 Ancillary [facility], 1.2.840.1 [id number] 1105 [id number] Univers 12:15:00 14:00:00 Procedure Winter 23444.1.1 it y of [place] 3.412.2.7 [place] .3.538615 MD [facility] 2023-04-22 2023-04-22 Outpatient [facility], MDA MDA [id number] 12:18:34 12:30:06 WINTER olivier 2023-04-22 2023-04-22 Travel 1.2.840.1 1.2.828.555 1296 [id number] Univers 00:00:00 00:00:00 74300.1.1 350.1.13.41 ity of 3.412.2.7 [place].3.698 [place] .3.131702 084.8 MD Soares8 [facility] 2023-04-22 2023-04-22 Travel 1.2.840.1 1.2.144.760 6030 [id number] Univers 00:00:00 00:00:00 02009.1.1 350.1.13.41 ity of 3.412.2.7 2.[place]7.3.698 [place] .3.083916 084.8 MD Soares8 [facility] 2023-04-09 2023-04-09 Rohith Thomas 1.2.840.1 [id number] Univers 00:00:00 00:00:00 Kyung 37788.1.1 ity of 3.412.2.7 [place] .3.278482 MD Soares8 [facility] 2023-04-09 2023-04-09 Rohith Thomas 1.2.840.1 [id number] Univers 00:00:00 00:00:00 Kyung 88200.1.1 ity of 3.412.2.7 [place] .3.439349 MD Soares8 [facility] 2023-04-08 2023-04-08 Office [facility] 1.2.840.114 [id number] Univers 10:00:00 10:15:[address] [facility] 350.1.13.10 it y of [place] 4.2.7.2.686 Frankie as JAVIER?BLEA [id number] [address] MEDICAL OFFICE BUILDING 2023-04-08 2023-04-08 [facility] [id number] Univers 10:00:00 09:19:43 PROVO ity of [facility] [place] [facility] 2023-04-08 2023-04-08 Rohith Gordon 1.2.840.1 [id number] Univers 00:00:00 00:00:00 Miguel Fernandez 08066.1.1 it y of 3.412.2.7 [place] .3.943855 MD Soares8 [facility] 2023-04-08 2023-04-08 Rohith Gordon 1.2.840.1 [id number] Univers 00:00:00 00:00:00 Miguel Fernandez 08435.1.1 it y of 3.412.2.7 [place] .3.540881 MD [facility] 2023-03-12 2023-04-06 Nutrition Any Kenya Johnson. 1.2.840.1 [id number] Univers 11:00:00 15:50:58 Lian Jaramillo 66377.1.1 ity of 3.412.2.7 [place] .3.661428 MD [facility] 2023-03-12 2023-04-06 Nutrition EL Kenya Agarwal. 1.2.840.1 [id number] Univers 11:00:00 15:50:58 Lian Jaramillo 85499.1.1 ity of 3.412.2.7 [place] .3.854299 MD [facility] 2023-03-31 2023-03-31 Office Torin Thein 1.2.840.1 [id number] [id number] Univers 10:30:00 11:14:16 Visit 52226.1.1 ity of 3.412.2.7 [place] .3.363770 MD [facility] 2023-03-31 2023-03-31 Office KYLAH Harkins Thein 1.2.840.1 [id number] 1106 [id number] Univers 10:30:00 11:14:16 Visit 07183.1.1 ity of 3.412.2.7 [place] .3.932078 MD [facility] 2023-03-31 2023-03-31 Travel 1.2.840.1 1.2.428.023 9171 [id number] Univers 00:00:00 00:00:00 21820.1.1 350.1.13.41 ity of 3.412.2.7 2.[place]7.3.698 [place] .3.335090 084.8 MD [facility] 2023-03-31 2023-03-31 Travel 1.2.840.1 1.2.323.436 7266 [id number] Univers 00:00:00 00:00:00 64887.1.1 350.1.13.41 ity of 3.412.2.7 [place]7.3.698 [place] .3.264612 084.8 MD [facility] 2023-03-30 2023-03-30 Outpatient Agjoana_M VFP VFP 50134 45-20 Village 00:00:00 00:00:00 706404 Family Practic e 2023-03-26 2023-03-26 Telephone Pomelizabeth, 1.2.840.1 [id number] 1106 [id number] Univers 00:00:00 00:00:00 Viry March 69748.1.1 it y of 3.412.2.7 [place] .3.308736 MD [facility] 2023-03-26 2023-03-26 Telephone Pomelizabeth, 1.2.840.1 [id number] 1106 [id number] Univers 00:00:00 00:00:00 Viry Singer 76995.1.1 it y of 3.412.2.7 [place] .3.620343 MD Soares8 [facility] 2023-03-19 2023-03-23 Cathie Lopes, 1.2.840.1 [id number] Univers 13:30:00 07:29:30 ne Angela 12734.1.1 ity of 3.412.2.7 [place] .3.975284 MD Soares8 [facility] 2023-03-19 2023-03-23 Telemcabrera Lopes, 1.2.840.1 [id number] Univers 13:30:00 07:29:30 ne Angela 83495.1.1 ity of 3.412.2.7 [place] .3.577615 MD Soares8 [facility] 2023-03-23 2023-03-23 Telephone Lan, 1.2.840.1 [id number] Univers 00:00:00 00:00:00 Lindy 74580.1.1 ity of [place] 3.412.2.7 [place] .3.976408 MD [facility] 2023-03-23 2023-03-23 Orders Lan, 1.2.840.1 [id number] Univers 00:00:00 00:00:00 Only Lindy 29906.1.1 ity of [place] 3.412.2.7 [place] .3.634052 MD Soares8 [facility] 2023-03-23 2023-03-23 Telephone Lan, 1.2.840.1 [id number] Univers 00:00:00 00:00:00 Lindy 97356.1.1 ity of [place] 3.412.2.7 [place] .3.974259 MD Soares8 [facility] 2023-03-23 2023-03-23 Orders Lan, 1.2.840.1 [id number] Univers 00:00:00 00:00:00 Only Lindy 86586.1.1 ity of [place] 3.412.2.7 [place] .3.775873 MD Soares8 [facility] 2023-03-18 2023-03-18 Telephone Kenny Power, 1.2.840.1 [id number] Univers 00:00:00 00:00:00 Celyne 17513.1.1 ity of 3.412.2.7 [place] .3.669361 MD Soares8 [facility] 2023-03-18 2023-03-18 Telephone Kenny Power, 1.2.840.1 [id number] Univers 00:00:00 00:00:00 Celyne 92781.1.1 ity of 3.412.2.7 [place] .3.536722 MD Soares8 [facility] 2023-03-16 2023-03-16 Anabell Hdez, 1.2.840.1 [id number] Univers 00:00:00 00:00:00 Only Lorena 91822.1.1 ity of [place] 3.412.2.7 [place] .3.471806 MD Soares8 [facility] 2023-03-16 2023-03-16 Orders Lemuel, 1.2.840.1 [id number] Univers 00:00:00 00:00:00 Only Lorena 57715.1.1 ity of [place] 3.412.2.7 [place] .3.938091 MD [facility] 2023-03-12 2023-03-12 Orders Doctor OLGA 1.2.840.114 [id number] Univers 00:00:00 00:00:00 Only Unassigned, STEVE 350.1.13.10 ity of [facility] 4.2.7.2.686 Frankie as [id number] Medi mari [address] 2023-03-11 2023-03-11 Infusion Lemuel, 1.2.840.1 [id number] Univers 13:30:00 15:40:13 Lorena 40245.1.1 ity of [place] 3.412.2.7 [place] .3.064431 MD [facility] 2023-03-11 2023-03-11 Infusion KYLAH Hdez, 1.2.840.1 [id number] Univers 13:30:00 15:40:13 Lorena 07312.1.1 ity of [place] 3.412.2.7 [place] .3.741726 MD [facility] 2023-03-11 2023-03-11 Follow-Up Lemuel, 1.2.840.1 [id number] [id number] Univers 11:20:00 12:42:16 Lorena 33060.1.1 ity of [place] 3.412.2.7 [place] .3.258392 MD [facility] 2023-03-11 2023-03-11 Follow-Up KYLAH Hdez, 1.2.840.1 [id number] [id number] Univers 11:20:00 12:42:16 Lorena 41989.1.1 ity of [place] 3.412.2.7 [place] .3.209868 MD [facility] 2023-03-11 2023-03-11 Outpatient EL LEMUEL, MDA MDA [id number] 11:07:27 11:16:17 LORENA [facility] 2023-03-11 2023-03-11 Travel 1.2.840.1 1.2.496.267 0748 [id number] Univers 00:00:00 00:00:00 14704.1.1 350.1.13.41 ity of 3.412.2.7 [place]7.3.698 [place] .3.526854 084.8 MD Soares8 [facility] 2023-03-11 2023-03-11 Travel 1.2.840.1 1.2.674.181 6171 [id number] Univers 00:00:00 00:00:00 97414.1.1 350.1.13.41 ity of 3.412.2.7 2.[place]7.3.698 [place] .3.699935 084.8 MD [facility] 2023-03-09 2023-03-09 Telephone Hdez, 1.2.840.1 [id number] 1106 [id number] Univers 00:00:00 00:00:00 Lorena 48327.1.1 ity of [place] 3.412.2.7 [place] .3.692091 MD Soares8 [facility] 2023-03-09 2023-03-09 Scotia Lemuel, 1.2.840.1 [id number] 1106 [id number] Univers 00:00:00 00:00:00 Lorena 88126.1.1 ity of [place] 3.412.2.7 [place] .3.591077 MD [facility] 2023-03-04 2023-03-04 Kenya Gastelum 1.2.840.1 [id number] Univers 10:00:00 10:57:47 Lian Jaramillo 33278.1.1 ity of 3.412.2.7 [place] .3.805056 MD [facility] 2023-03-04 2023-03-04 Nutrition Kenya Carrion 1.2.840.1 [id number] Univers 10:00:00 10:57:47 Lian Jaramillo 00270.1.1 ity of 3.412.2.7 [place] .3.600705 MD Soares8 [facility] 2023-03-04 2023-03-04 Anabell Hdez 1.2.840.1 [id number] Univers 00:00:00 00:00:00 Only Lorena Villalobos50.1.1 ity of [place] 3.412.2.7 [place] .3.144229 MD Soares8 [facility] 2023-03-04 2023-03-04 Telephone Carnlul, 1.2.840.1 [id number] Univers 00:00:00 00:00:00 Tita Villalobos50.1.1 ity of 3.412.2.7 [place] .3.615987 MD [facility] 2023-03-04 2023-03-04 Anabell Gordon 1.2.840.1 [id number] Univers 00:00:00 00:00:00 Only Miguel Fernandez 66787.1.1 it y of 3.412.2.7 [place] .3.079454 MD Blair [facility] 2023-03-04 2023-03-04 OLGA Yost 1.2.840.114 [id number] Univers 00:00:00 00:00:00 Deyanira HOLMY 350.1.13.10 it y of [facility] 4.2.7.2.686 Frankie as [id number] [place] [address] [place] 2023-03-04 2023-03-04 Anabell Hdez 1.2.840.1 [id number] Univers 00:00:00 00:00:00 Only Lorena Villalobos50.1.1 ity of [place] 3.412.2.7 [place] .3.767286 MD Blair [facility] 2023-03-04 2023-03-04 Telephone Carnlul, 1.2.840.1 [id number] Univers 00:00:00 00:00:00 Tita L. 82463.1.1 ity of 3.412.2.7 [place] .3.012716 MD Soares8 [facility] 2023-03-04 2023-03-04 Anabell Gordon, 1.2.840.1 [id number] Univers 00:00:00 00:00:00 Only Miguel Fernandez 03172.1.1 it y of 3.412.2.7 [place] .3.656084 MD Soares8 [facility] 2023-03-03 2023-03-03 Outpatient KYLAH HDEZ [facility] [id number] [place] 12:48:25 13:03:52 [facility] 2023-03-03 2023-03-03 Follow-Up Kenny Power, 1.2.840.1 [id number] Univers 11:40:00 12:57:39 Celyne 29322.1.1 ity of 3.412.2.7 [place] .3.257662 MD Soares8 [facility] 2023-03-03 2023-03-03 Follow-Up KYLAH Power, 1.2.840.1 [id number] Univers 11:40:00 12:57:39 Celyne 11319.1.1 ity of 3.412.2.7 [place] .3.379644 MD Blair [facility] 2023-03-03 2023-03-03 Rohith Santillan, 1.2.840.1 [id number] Univers 00:00:00 00:00:00 Anumol 53392.1.1 ity of 3.412.2.7 [place] .3.703422 MD Soares8 [facility] 2023-03-03 2023-03-03 Travel 1.2.840.1 1.2.542.740 [id number] Univers 00:00:00 00:00:00 91813.1.1 350.1.13.41 ity of 3.412.2.7 2.[place].7.3.698 [place] .3.883107 084.8 MD Soares8 [facility] 2023-03-03 2023-03-03 Rohith Santillan, 1.2.840.1 [id number] Univers 00:00:00 00:00:00 Anumol 03538.1.1 ity of 3.412.2.7 [place] .3.979018 MD Soares8 [facility] 2023-03-03 2023-03-03 Travel 1.2.840.1 1.2.670.697 5200 [id number] Univers 00:00:00 00:00:00 60421.1.1 350.1.13.41 ity of 3.412.2.7 2.[place].7.3.698 [place] .3.659358 084.8 MD Soares8 [facility] 2023-03-02 2023-03-02 Rohith Santillan, 1.2.840.1 [id number] Univers 00:00:00 00:00:00 Anumol 16264.1.1 ity of 3.412.2.7 [place] .3.328653 MD Blair [facility] 2023-03-02 2023-03-02 Rohith Santillan, 1.2.840.1 [id number] Univers 00:00:00 00:00:00 Anumol 04980.1.1 ity of 3.412.2.7 [place] .3.242089 MD Blair [facility] 2023-02-26 2023-02-26 Cathie Gordon, 1.2.840.1 [id number] Univers 08:30:00 08:56:14 ne Miguel Fernandez 98903.1.1 it y of 3.412.2.7 [place] .3.318763 MD Soares8 [facility] 2023-02-26 2023-02-26 Telemediccarlos Gordon, 1.2.840.1 [id number] 693 [id number] Univers 08:30:00 08:56:14 ne Miguel Fernandez 11921.1.1 it y of 3.412.2.7 [place] .3.685759 MD Soares8 [facility] 2023-02-25 2023-02-25 Nutrition Kenya Agarwal. 1.2.840.1 [id number] 23 [id number] Univers 10:00:00 11:13:11 Lian Jaramillo 51582.1.1 ity of 3.412.2.7 [place] .3.460107 MD Soares8 [facility] 2023-02-25 2023-02-25 Nutrition EL Kenya Agarwal 1.2.840.1 [id number] 23 [id number] Univers 10:00:00 11:13:11 Lian Jaramillo 45371.1.1 ity of 3.412.2.7 [place] .3Rodger146493 MD Soares8 [facility] 2023-02-23 2023-02-23 Rohith Sheriff [facility] 1.2.840.114 [id number] Univers 00:00:00 00:00:00 [facility] 350.1.13.10 it y of ASHLEY 4.2.7.2.686 Frankie as JAVIER?BLEA [id number] [address] MEDICAL OFFICE BUILDING 2023-02-19 2023-02-19 Telephone [place], 1.2.840.1 [id number] [id number] Univers 00:00:00 00:00:00 Anthony Benjamin 96423.1.1 ity of 3.412.2.7 [place] .3.307840 MD Soares8 [facility] 2023-02-19 2023-02-19 Telephone [place], 1.2.840.1 [id number] 1105 [id number] Univers 00:00:00 00:00:00 Anthony Benjamin 42662.1.1 ity of 3.412.2.7 [place] .3Rodger292036 MD Soares8 [facility] 2023-02-18 2023-02-18 Kenya Gastelum 1.2.840.1 [id number] 23 [id number] Univers 10:00:00 10:47:33 Lian Jaramillo 30684.1.1 ity of 3.412.2.7 [place] .3.067421 MD Soares8 [facility] 2023-02-18 2023-02-18 Nutrition Kenya Agarwal. 1.2.840.1 [id number] 23 [id number] Univers 10:00:00 10:47:33 Lian Jaramillo 43275.1.1 ity of 3.412.2.7 [place] .3Rodger375788 .8 [facility]23-02-05 2023-02-16 [facility] 1.2.840.1 [id number] 1 [id number] [facility] 16:49:00 16:40:00 Encounter JamierojasAndradeFelisa 63341.1.1 ity of Romana Guy 3.412.2.7 Amanda Patino .3.120066 Napoleon Romero, Son V. .8 A Derrick Sandoval, Kofi [facility] 2023-02-05 2023-02-16 [facility] 1.2.840.1 [id number] 1 [id number] [facility] 16:49:00 16:40:00 Encounter Felisa Rashid 27731.1.1 ity of Romana Guy 3.412.2.7 Amanda Patino .3.833758 Napoleon Romero, Son V. .8 A Derrick Sandoval, Kofisa [facility]ega [facility] 2023-02-14 2023-02-14 Inpatient KYLAH ABDI MDA MDA [id number] 11:31:10 12:01:35 KOFI Lauri o n 2023-02-13 2023-02-13 Inpatient KYLAH ABDI, MDA MDA [id number] 15:30:24 16:08:06 KOFI Lauri o n 2023-02-12 2023-02-12 [facility] Kenya Agarwal 1.2.840.1 [id number] 1 [id number] Univers 07:00:00 23:59:00 Encounter Sarah 60379.1.1 it y of 3.412.2.7 Bere .3.427822 MD Blair [facility] [place] 2023-02-12 2023-02-12 [facility] Kenya Carrion 1.2.840.1 [id number] 1 [id number] Univers 07:00:00 23:59:00 Encounter Y. 34504.1.1 it y of 3.412.2.7 [place] .3.612422 MD Soares8 [facility] 2023-02-12 2023-02-12 [facility], 1.2.840.1 [id number] Univers 16:15:00 16:30:00 Support Winter 40156.1.1 ity of Gini 3.412.2.7 [place] .3.087565 MD Soares8 [facility] 2023-02-12 2023-02-12 [facility], 1.2.840.1 [id number] 03892 Univers 16:15:00 16:30:00 Support Winter 31348.1.1 ity of Gini 3.412.2.7 [place] .3.177252 MD Blair [facility] 2023-02-12 2023-02-12 Documentat [place], 1.2.840.1 [id number] 721 [id number] Univers 00:00:00 00:00:00 ion Winter 80606.1.1 ity of Gini 3.412.2.7 [place] .3.687012 MD Blair [facility] 2023-02-12 2023-02-12 [facility], 1.2.840.1 [id number] Univers 00:00:00 00:00:00 Only Winter 23616.1.1 ity of Gini 3.412.2.7 [place] .3.938036 MD Soares8 [facility] 2023-02-12 2023-02-12 [facility], 1.2.840.1 [id number] 1316 Univers 00:00:00 00:00:00 Only Dustin 91314.1.1 ity of 3.412.2.7 [place] .3.042488 MD Soares8 [facility] 2023-02-12 2023-02-12 Documentat Luu, 1.2.840.1 [id number] [id number] Univers 00:00:00 00:00:00 ion Winter 68864.1.1 ity of Gini 3.412.2.7 [place] .3.110981 .8 [facility] 2023-02-12 2023-02-12 Orders Luu, 1.2.840.1 [id number] Univers 00:00:00 00:00:00 Only Winter 57162.1.1 ity of Gini 3.412.2.7 [place] .3.795291 .8 [facility] 2023-02-12 2023-02-12 Orders Bruce, 1.2.840.1 [id number] Univers 00:00:00 00:00:00 Only Dustin 66838.1.1 ity of 3.412.2.7 [place] .3.912833 .8 [facility] 2023-02-10 2023-02-10 Inpatient KENYA CARRION [facility] MDA [id number] 16:26:42 16:26:45 Lauri o n 2023-02-10 2023-02-10 Inpatient KYLAH ABDI TAO MDA [id number] 11:58:56 12:28:35 KOFI Richardsoners o n 2023-02-10 2023-02-10 Inpatient KYLAH ABDI TAO MDA [id number] 10:33:31 12:07:35 KOFI Richardsoners o n 2023-02-10 2023-02-10 Charla Coleman 1.2.840.1 [id number] 11 [id number] Univers 00:00:00 00:00:00 Only B 53532.1.1 ity of 3.412.2.7 [place] .3.843993 .8 [facility] 2023-02-10 2023-02-10 Charla Coleman 1.2.840.1 [id number] 11 [id number] Univers 00:00:00 00:00:00 Only B 71261.1.1 ity of 3.412.2.7 [place] .3.827169 MD Soares8 [facility] [place] 2023-02-09 2023-02-09 Inpatient KYLAH ABDI MDA MDA [id number] 20:20:46 20:27:48 KOFI Lauri o n 2023-02-08 2023[facility]02-08 [facility] 1.2.840.1 [id number] 1 [id number] Univers 06:00:00 23:59:00 Encounter Y. 88158.1.1 it y of 3.412.2.7 [place] .3.933443 .8 [facility] 2023-02-08 2023-02-08 [facility] [place] 1.2.840.1 [id number] 1 [id number] Univers 06:00:00 23:59:00 Encounter Y. 50345.1.1 it y of 3.412.2.7 [place] .3.519634 .8 [facility] 2023-02-08 2023-02-08 [facility] MDA MDA [id number] 11:08:59 11:38:36 DERRICK Olivier o n 2023-02-08 2023-02-08 [facility] [place] MDA MDA [id number] 10:14:12 10:14:16 Lauri o n 2023-02-06 2023-02-06 Inpatient THAO OSORIO MDA MDA [id number] 15:39:36 16:04:43 Lauri o n 2023-02-06 2023-02-06 Inpatient THAO OSORIO MDA MDA 1104 [id number] 13:24:20 14:51:55 Lauri o n 2023-02-06 2023-02-06 Inpatient THAO OSORIO MDA MDA 1104 [id number] 13:24:15 14:51:51 Lauri o n 2023-02-06 2023-02-06 Travel 1.2.840.1 1.2.214.985 0361 [id number] [facility] 00:00:00 00:00:00 69360.1.1 350.1.13.41 ity of 3.412.2.7 2.[place].7.3.698 [place] .3.369259 084.8 .8 [facility] 2023-02-06 2023-02-06 Travel 1.2.840.1 1.2.383.665 4221 [id number] Univers 00:00:00 00:00:00 73846.1.1 350.1.13.41 ity of 3.412.2.7 2.2.7.3.698 [place] .3.626421 084.8 .8 [facility] 2023-02-05 2023-02-05 Telephone [facility], 1.2.840.1 [id number] Univers 00:00:00 00:00:00 Celyne 42595.1.1 ity of 3.412.2.7 [place] .3.924988 MD Soares8 [facility] 2023-02-05 2023-02-05 Telephone [facility], 1.2.840.1 [id number] Univers 00:00:00 00:00:00 Celyne 46836.1.1 ity of 3.412.2.7 [place] .3.018466 .8 [facility] 2023-02-04 2023-02-04 Clinical [place], 1.2.840.1 [id number] Univers 09:45:00 12:39:12 Support Winter 50667.1.1 ity of Gini 3.412.2.7 [place] .3.176596 .8 [facility] 2023-02-04 2023-02-04 Clinical [facility], 1.2.840.1 [id number] Univers 09:45:00 12:39:12 Support Iwnter 74890.1.1 ity of Gini 3.412.2.7 [place] .3.854638 .8 [facility] 2023-02-04 2023-02-04 Outpatient KYLAH POWER MDA MDA [id number] 12:23:55 12:34:00 VAIBHAV jaramillo 2023-02-04 2023-02-04 Outpatient KENYA CARRION MDA MDA [id number] 11:16:00 11:43:29 Lauri olivier 2023-02-04 2023-02-04 Follow-Up Kenny Power, 1.2.840.1 [id number] Univers 10:40:00 11:00:00 Celyne 18567.1.1 ity of 3.412.2.7 [place] .3.112510 MD Blair [facility] 2023-02-04 2023-02-04 Follow-Up EL Kenny Power, 1.2.840.1 [id number] Univers 10:40:00 11:00:00 Celyne 45501.1.1 ity of 3.412.2.7 [place] .3.739956 MD Blair [facility] 2023-02-04 2023-02-04 Travel 1.2.840.1 1.2.560.486 8734 [id number] Univers 00:00:00 00:00:00 16622.1.1 350.1.13.41 ity of 3.412.2.7 2.2.7.3.698 [place] .3.776146 084.8 MD Blair [facility] 2023-02-04 2023-02-04 Travel 1.2.840.1 1.2.827.853 5887 [id number] Univers 00:00:00 00:00:00 14785.1.1 350.1.13.41 ity of 3.412.2.7 2.2.7.3.698 [place] .3.128103 084.8 MD Blair [facility] 2023-02-03 2023-02-03 Outpatient KYLAH AGARWAL KENYA [facility] MDA [id number] 14:18:38 14:50:54 Lauri olivier 2023-02-03 2023-02-03 Infusion Kenny Power, 1.2.840.1 [id number] 1 [id number] Univers 11:00:00 14:13:00 Celyne 30118.1.1 ity of 3.412.2.7 [place] .3.149808 MD Blair [facility] 2023-02-03 2023-02-03 Infusion KYLAH Power, 1.2.840.1 [id number] 1 [id number] Univers 11:00:00 14:13:00 Celyne 47661.1.1 ity of 3.412.2.7 [place] .3.064173 MD Soares8 [facility] 2023-02-03 2023-02-03 Anabell Hdez, 1.2.840.1 [id number] 7550 Univers 00:00:00 00:00:00 Only Lorena 95740.1.1 ity of Kayla 3.412.2.7 [place] .3.544397 MD Soares8 [facility] 2023-02-03 2023-02-03 Travel 1.2.840.1 1.2.231.769 1021 [id number] Univers 00:00:00 00:00:00 81936.1.1 350.1.13.41 ity of 3.412.2.7 2.2.7.3.698 [place] .3.983017 084.8 MD Soares8 [facility] 2023-02-03 2023-02-03 Anabell Hdez, 1.2.840.1 [id number] 7633 Univers 00:00:00 00:00:00 Only Lorena 12181.1.1 ity of Kayla 3.412.2.7 [place] .3.701705 MD Soares8 [facility] 2023-02-03 2023-02-03 Travel 1.2.840.1 1.2.237.241 9364 [id number] Univers 00:00:00 00:00:00 25102.1.1 350.1.13.41 ity of 3.412.2.7 2.2.7.3.698 [place] .3.034039 084.8 MD Blair [facility] 2023-02-02 2023-02-02 Outpatient KENYA CARRION [facility] [id number] 13:32:42 14:29:34 [facility] 2023-02-02 2023-02-02 Travel 1.2.840.1 1.2.245.325 4987 [id number] Univers 00:00:00 00:00:00 80625.1.1 350.1.13.41 ity of 3.412.2.7 2.2.7.3.698 [place] .3.800821 084.8 .8 [facility] 2023-02-02 2023-02-02 Travel 1.2.840.1 1.2.050.644 0542 [id number] Univers 00:00:00 00:00:00 39032.1.1 350.1.13.41 ity of 3.412.2.7 2.2.7.3.698 [place] .3.484106 084.8 .8 [facility] 2023-01-26 2023-02-01 [facility] 1.2.840.1 [id number] Univers 16:06:00 18:28:00 Encounter Jad Patel 81917.1.1 ity of Amanda Proctor 3.412.2.7 T Jaycee Castillo .3.172518 Brock Quijano .8 And Elian Goode [facility] 2023-01-26 2023-02-[address] [facility] 1.2.840.1 [id number] Univers 16:06:00 18:28:00 Jad Fall 10073.1.1 ity of Amanda Proctor 3.412.2.7 T Jaycee Castillo .3.519743 Brock Quijano .[facility] 2023-02-01 2023-02-01 Inpatient KENYA CARRION [facility] [id number] 15:12:03 15:12:06 Lauri jaramillo 2023-01-31 2023-01-31 Rohith Madrigal 1.2.840.1 [id number] [facility] 00:00:00 00:00:00 Glenda Peñaloza 21424.1.1 i ty of 3.412.2.7 [place] .3.344486 MD Blair [facility] 2023-01-31 2023-01-31 Rohith Madrigal 1.2.840.1 [id number] Univers 00:00:00 00:00:00 Glenda Peñaloza 06290.1.1 i ty of 3.412.2.7 [place] .3.649256 MD Soares8 [facility] 2023-01-29 2023-01-29 Inpatient EL KT MDA MDA [id number] 12:45:23 14:59:56 Suraj DESHPANDE 2023-01-28 2023-01-28 Telephone Jonathan 1.2.840.1 [id number] 1104 [id number] Univers 00:00:00 00:00:00 Felisa Costa 29471.1.1 ity of 3.412.2.7 [place] .3.856547 MD Soares8 [facility] 2023-01-28 2023-01-28 Anabell Hdez, 1.2.840.1 [id number] Univers 00:00:00 00:00:00 Only Lorena 27630.1.1 ity of Kayla 3.412.2.7 [place] .3.630740 MD Blair [facility] 2023-01-28 2023-01-28 Telephone Jonathan 1.2.840.1 [id number] 1104 [id number] Univers 00:00:00 00:00:00 Felisa Costa 56635.1.1 ity of 3.412.2.7 [place] .3.135946 MD Soares8 [facility] 2023-01-28 2023-01-28 Anabell Hdez 1.2.840.1 [id number] Univers 00:00:00 00:00:00 Only Lorena 21427.1.1 ity of Kayla 3.412.2.7 [place] .3.883329 MD Blair [facility] 2023-01-27 2023-01-27 Inpatient EL [place]ANC[place], MDA MDA [id number] 17:00:08 17:15:25 PARK olivier 2023-01-27 2023-01-27 Inpatient KENYA CARRION [facility] [id number] 16:29:18 16:29:21 Lauri olivier 2023-01-26 2023-01-26 Travel 1.2.840.1 1.2.235.988 0580 [id number] Univers 00:00:00 00:00:00 42020.1.1 350.1.13.41 ity of 3.412.2.7 2.2.7.3.698 [place] .3.768847 08Dannielle.8 MD Blair [facility] 2023-01-26 2023-01-26 Telephone Casitllo, 1.2.840.1 [id number] 1104 [id number] Univers 00:00:00 00:00:00 Felisa Costa 66403.1.1 ity of 3.412.2.7 [place] .3.010039 MD Blair [facility] 2023-01-26 2023-01-26 Telephone Castillo, 1.2.840.1 [id number] 1104 [id number] Univers 00:00:00 00:00:00 Felias Costa 76949.1.1 ity of 3.412.2.7 [place] .3.769525 MD Blair [facility] 2023-01-26 2023-01-26 Travel 1.2.840.1 1.2.098.466 3352 [id number] Univers 00:00:00 00:00:00 55897.1.1 350.1.13.41 ity of 3.412.2.7 2.2.7.3.698 [place] .3.240965 [place] [facility] 2023-01-26 2023-01-26 Telephone Castillo, 1.2.840.1 [id number] 1104 [id number] Univers 00:00:00 00:00:00 Felisa Costa 96424.1.1 ity of 3.412.2.7 [place] .3.183923Dominique [facility] 2023-01-26 2023-01-26 Telephone Castillo, 1.2.840.1 [id number] 1104 [id number] Univers 00:00:00 00:00:00 Felisa Costa 54422.1.1 ity of 3.412.2.7 [place] .3.971432 MD Blair [facility] 2023-01-25 2023-01-25 [facility] Kenya Agarwal 1.2.840.1 [id number] 1 [id number] Univers 06:00:00 23:59:00 Encounter Y. 98408.1.1 it y of 3.412.2.7 [place] .3.335395 MD Blair [facility] 2023-01-25 2023-01-25 [facility] Kenya Agarwal 1.2.840.1 [id number] 1 [id number] Univers 06:00:00 23:59:00 Encounter Y. 93732.1.1 it y of 3.412.2.7 [place] .3.822316 MD Blair [facility] 2023-01-25 2023-01-25 [facility] Kenya Agarwal 1.2.840.1 [id number] 23 [id number] Univers 11:30:00 12:09:30 Lian Jaramillo 59846.1.1 ity of 3.412.2.7 [place] .3.858326 MD Blair [facility] 2023-01-25 2023-01-25 [facility] Kenya Agarwal 1.2.840.1 [id number] 23 [id number] Univers 11:30:00 12:09:30 Lian Jaramillo 18936.1.1 ity of 3.412.2.7 [place] .3.656215 MD Blair [facility] 2023-01-25 2023-01-25 Telephone Jonathan, 1.2.840.1 [id number] 1104 [id number] Univers 00:00:00 00:00:00 Felisa Costa 99999.1.1 ity of 3.412.2.7 [place] .3.280645 MD Blair [facility] 2023-01-25 2023-01-25 Telephone Castillo, 1.2.840.1 [id number] 1104 [id number] Univers 00:00:00 00:00:00 Felisa Napoleon 82603.1.1 ity of 3.412.2.7 [place] .3.448309 MD Blair [facility] 2023-01-22 2023-01-22 Outpatient KENYA CARRION [facility] [id number] 14:08:15 14:37:49 [facility] 2023-01-22 2023-01-22 Nutrition Kenya Agarwal. 1.2.840.1 [id number] 23 [id number] Univers 10:30:00 13:09:10 Lian Jaramillo 46349.1.1 ity of 3.412.2.7 [place] .3.990652 MD Blair [facility] 2023-01-22 2023-01-22 Nutrition Kenya Carrion 1.2.840.1 [id number] 23 [id number] Univers 10:30:00 13:09:10 Lian Jaramillo 85661.1.1 ity of 3.412.2.7 [place] .3.997817 MD [facility] 2023-01-22 2023-01-22 Travel 1.2.840.1 1.2.023.568 3437 [id number] Univers 00:00:00 00:00:00 69064.1.1 350.1.13.41 ity of 3.412.2.7 2.2.7.3.698 [place] .3.053181 [place] [facility] 2023-01-22 2023-01-22 Travel 1.2.840.1 1.2.781.078 7266 [id number] Univers 00:00:00 00:00:00 42590.1.1 350.1.13.41 ity of 3.412.2.7 2.2.7.3.698 [place] .3.243877 084Rodger8 MD [facility] 2023-01-21 2023-01-21 Infusion Lemuel 1.2.840.1 [id number] 74018 06095 Univers 08:45:00 14:45:37 Lorena 33231.1.1 ity of Kayla 3.412.2.7 [place] .3.594724 MD [facility] 2023-01-21 2023-01-21 Infusion KYLAH Hdez, 1.2.840.1 [id number] 39317 71119 Univers 08:45:00 14:45:37 Lorena 54792.1.1 ity of Kayla 3.412.2.7 [place] .3.323185 MD [facility] 2023-01-21 2023-01-21 Outpatient KENYA CARRION [facility] MDA [id number] 13:30:26 14:05:07 [facility] 2023-01-21 2023-01-21 Follow-Up Kenny Power, 1.2.840.1 [id number] Univers 08:00:00 09:18:40 Celyne 82603.1.1 ity of 3.412.2.7 [place] .3.207914 MD [facility] 2023-01-21 2023-01-21 Follow-Up KYLAH Power, 1.2.840.1 [id number] Univers 08:00:00 09:18:40 Celyne 67740.1.1 ity of 3.412.2.7 [place] .3.937070 MD [facility] 2023-01-21 2023-01-21 Travel 1.2.840.1 1.2.614.306 6908 [id number] Univers 00:00:00 00:00:00 19387.1.1 350.1.13.41 ity of 3.412.2.7 2.2.7.3.698 [place] .3.610405 084.8 MD [facility] 2023-01-21 2023-01-21 Travel 1.2.840.1 1.2.999.813 7342 [id number] Univers 00:00:00 00:00:00 52074.1.1 350.1.13.41 ity of 3.412.2.7 2.2.7.3.698 [place] .3.312402 084.8 MD [facility] 2023-01-20 2023-01-20 Outpatient MANUEL CARRIONLEY [facility] MDA [id number] 12:58:49 13:48:03 [address]uri [facility] 2023-01-20 2023-01-20 Consult Pamagmary 1.2.840.1 [id number] Univers 11:20:00 12:57:27 a, 69823.1.1 ity of [place]han[place]m 3.412.2.7 [place] .3.958670 MD Soares8 [facility] 2023-01-20 2023-01-20 Consult KYLAH Ponce 1.2.840.1 [id number] 11 [id number] Univers 11:20:00 12:57:27 a, 53661.1.1 ity of [place]hanal[place]shm 3.412.2.7 [place] .3.179614 MD [facility] 2023-01-20 2023-01-20 Outpatient KYLAH HDEZ [facility] MDA [id number] 12:44:37 12:57:03 LORENA [facility] 2023-01-20 2023-01-20 Documentat Nabil 1.2.840.1 [id number] Univers 00:00:00 00:00:00 jennifer Johnston 21690.1.1 it y of 3.412.2.7 [place] .3.854715 MD Soares8 [facility] 2023-01-20 2023-01-20 Travel 1.2.840.1 1.2.825.397 8748 [id number] Univers 00:00:00 00:00:00 68962.1.1 350.1.13.41 ity of 3.412.2.7 2.2.7.3.698 [place] .3.466927 084.8 MD [facility] 2023-01-20 2023-01-20 Documentat Naibl 1.2.840.1 [id number] 674 [id number] Univers 00:00:00 00:00:00 ion Nereida Johnston 21883.1.1 it y of 3.412.2.7 [place] .3.486398 MD Soares8 [facility] 2023-01-20 2023-01-20 Travel 1.2.840.1 1.2.287.876 6171 252394 Univers 00:00:00 00:00:00 11838.1.1 350.1.13.41 ity of 3.412.2.7 2.2.7.3.698 [place] .3.966583 084.8 MD [facility] 2023-01-19 2023-01-19 Clinical [place], 1.2.840.1 [id number] 70084 84827 Univers 15:30:00 16:24:21 Support Winter 30869.1.1 ity of Gini 3.412.2.7 [place] .3.929897 MD [facility] 2023-01-19 2023-01-19 Clinical [facility], 1.2.840.1 [id number] 08717 88378 Univers 15:30:00 16:24:21 Support Winter 48789.1.1 ity of Gini 3.412.2.7 [place] .3.406052 MD Blair [facility] 2023-01-19 2023-01-19 Outpatient KENYA CARRION [facility] [id number] 14:39:40 15:15:48 Lauri olivier 2023-01-19 2023-01-19 Outpatient Leona SHERIFF [facility] [id number] Univers 09:00:00 09:00:00 NEREIDA ity of [facility] [place] [facility] 2023-01-19 2023-01-19 Travel 1.2.840.1 1.2.403.612 [id number] [facility] 00:00:00 00:00:00 00544.1.1 350.1.13.41 ity of 3.412.2.7 [place].3.698 [place] .3.150990 08Tonya8 MD Blair [facility] 2023-01-19 2023-01-19 Travel 1.2.840.1 1.2.846.169 [id number] Univers 00:00:00 00:00:00 09611.1.1 350.1.13.41 ity of 3.412.2.7 [place].3.698 [place] .3.722743 084.8 .8 [facility] [place] 2023-01-11 2023-01-18 [facility] 1.2.840.1 [id number] Univers 19:31:00 19:34:00 Encounter Roberto Carlos Walsh 53047.1.1 ity of Chung Romero [facility] 3.412.2.7 [facility] .3.320296 Brock Quijano .8 And [facility] [place] 2023-01-11 2023-01-18 [facility] 1.2.840.1 [id number] [facility] 19:31:00 19:34:00 Encounter Roberto Carlos Walsh 83976.1.1 [facility] 3.412.2.7 [facility] .3.896084 Brock Quijano .8 And [facility] 2023-01-17 2023-01-18 Inpatient KYLAH DIOR MDA MDA [id number] 23:34:01 00:08:34 BROCK olivier 2023-01-15 2023-01-15 Outpatient R [facility]Y [facility] [id number] Univers 10:00:00 10:00:00 ity of [facility] [place] [facility] 2023-01-14 2023-01-14 Inpatient KYLAH DIOR MDA MDA [id number] 13:45:42 14:35:12 BROCK olivier 2023-01-14 2023-01-14 Inpatient KENYA CARRION MDA, MDA [id number] 10:28:01 10:28:06 Lauri olivier 2023-01-14 2023-01-14 Matias Beck2.840.1 [id number] Univers 00:00:00 00:00:00 Only Mukund 00518.1.1 [place] .3.211[place] Soares8 [facility] 2023-01-14 2023-01-14 Anabell Gorman, 1.2.840.1 [id number] Univers 00:00:00 00:00:00 Only Mukund 61852.1.1 [place] .3.619925 MD Soares8 [facility] 2023-01-13 2023-01-13 Inpatient KYLAH DIOR MDA [facility] [id number] 18:17:55 18:32:15 [facility]23-[facility]-12 2023-01-12 Inpatient KENYA CARRION [facility] [id number] 16:36:56 16:36:59 [facility] 2023-01-12 2023-01-12 Refmaddie Ordaz, 1.2.840.1 [id number] Univers 00:00:00 00:00:00 Cerena 35439.1.1 ity of 3.412.2.7 [place] .3.973496 MD Soares8 [facility] 2023-01-12 2023-01-12 Refmaddie Ordaz, 1.2.840.1 [id number] Univers 00:00:00 00:00:00 Cerena 76436.1.1 ity of 3.412.2.7 [place] .3.701204 MD Soares8 [facility] 2023-01-11 2023-01-11 Travel 1.2.840.1 1.2.690.232 [id number] Univers 00:00:00 00:00:00 92759.1.1 350.1.13.41 ity of 3.412.2.7 [place]3.698 [place] .3.171825 084.8 MD Soares8 [facility] 2023-01-11 2023-01-11 Telephone Jonathan, 1.2.840.1 [id number] Univers 00:00:00 00:00:00 Felisa Costa 53125.1.1 ity of 3.412.2.7 [place] .3.215966 MD Soares8 [facility] 2023-01-11 2023-01-11 Travel 1.2.840.1 1.2.152.724 [id number] Univers 00:00:00 00:00:00 37041.1.1 350.1.13.41 ity of 3.412.2.7 2.[place]7.3.698 [place] .3.882413 084.8 MD Soares8 [facility] 2023-01-11 2023-01-11 Telephone Jonathan, 1.2.840.1 [id number] Univers 00:00:00 00:00:00 Felisa Costa 68498.1.1 ity of 3.412.2.7 [place] .3.392794 MD Soares8 [facility] 2023-01-08 2023-01-08 Outpatient KENYA CARRION MDA MDA [id number] 13:23:30 14:05:33 [facility] 2023-01-08 2023-01-08 Nutrition Kenya Agarwal. 1.2.840.1 [id number] Univers 10:00:00 10:47:33 Lian Jaramillo 91524.1.1 ity of 3.412.2.7 [place] .3.571279 MD Soares8 [facility] 2023-01-08 2023-01-08 Nutrition Kenya Carrion. 1.2.840.1 [id number] Univers 10:00:00 10:47:33 Lian Jaramillo 74784.1.1 ity of 3.412.2.7 [place] .3.833347 MD Soares8 [facility] 2023-01-08 2023-01-08 Travel 1.2.840.1 1.2.388.631 [id number] Univers 00:00:00 00:00:00 62695.1.1 350.1.13.41 ity of 3.412.2.7 [place].3.698 [place] 084.8 .8 [facility] 2023-01-08 2023-01-08 Travel 1.2.840.1 1.2.692.764 4113 [id number] Univers 00:00:00 00:00:00 27828.1.1 350.1.13.41 ity of 3.412.2.7 [place].3.698 [place] .3.656014 084.8 MD [facility] 2023-01-07 2023-01-07 Infusion Hdez, 1.2.840.1 [id number] 93740 93569 Univers 09:00:00 13:58:13 Lorena 74244.1.1 ity of Kayla 3.412.2.7 [place] .3.959001 MD [facility] 2023-01-07 2023-01-07 Infusion EL Hdez, 1.2.840.1 [id number] 64986 [id number] Univers 09:00:00 13:58:13 Lorena 07331.1.1 ity of Kayla 3.412.2.7 [place] .3.550593 .Lilly [facility] 2023-01-07 2023-01-07 Follow-Up Hdez, 1.2.840.1 [id number] 1102 [id number] Univers 08:40:00 09:41:57 Lorena 81968.1.1 ity of Kayla 3.412.2.7 [place] .3.684013 MD [facility] 2023-01-07 2023-01-07 Follow-Up KYLAH Hdez, 1.2.840.1 [id number] 1102 [id number] Univers 08:40:00 09:41:57 Lorena 22589.1.1 ity of Kayla 3.412.2.7 [place] .3.341251 MD [facility] 2023-01-07 2023-01-07 Outpatient KENYA CARRION [facility] [id number] 09:08:41 09:08:41 Lauri o n 2023-01-07 2023-01-07 Outpatient KYLAH LEMUELTAO MDA [id number] 08:18:38 08:32:37 LORENA olivier 2023-01-07 2023-01-07 Travel 1.2.840.1 1.2.825.101 0121 [id number] Univers 00:00:00 00:00:00 74388.1.1 350.1.13.41 ity of 3.412.2.7 [place]7.3.698 [place] .3.105526 084.8 MD [facility]8 [facility] 2023-01-07 2023-01-07 Travel 1.2.840.1 1.2.044.706 6869 [id number] Univers 00:00:00 00:00:00 05761.1.1 350.1.13.41 ity of 3.412.2.7 [place]7.3.698 [place] .3.777853 084.8 .8 [facility] 2023-01-06 2023-01-06 Outpatient KENYA CARRION [facility] MDA [id number] 14:37:02 14:59:48 Lauri olivier 2023-01-06 2023-01-06 Infusion Hdez, 1.2.840.1 [id number] Univers 11:00:00 13:00:00 Lorena 35631.1.1 ity of [place] 3.412.2.7 [place] .3.653144 MD [facility]23-01-06 2023-01-06 Infusion KYLAH Lemuel, 1.2.840.1 [id number] Univers 11:00:00 13:00:00 Lorena 47151.1.1 ity of Kay[place] 3.412.2.7 [place] .3.476040 MD Blair [facility] 2023-01-06 2023-01-06 Travel 1.2.840.1 1.2.957.219 0782 [id number] Univers 00:00:00 00:00:00 70239.1.1 350.1.13.41 ity of 3.412.2.7 2.2.7.3.698 [place] .3.192864 084.8 MD [facility] 2023-01-06 2023-01-06 Travel 1.2.840.1 1.2.935.460 0838 [id number] Univers 00:00:00 00:00:00 71262.1.1 350.1.13.41 ity of 3.412.2.7 [place]7.3.698 [place] .3.107499 084.8 MD [facility] 2023-01-05 2023-01-05 Outpatient KENYA CARRION [facility] [id number] 13:16:48 13:59:03 [facility] 2023-01-05 2023-01-05 Travel 1.2.840.1 1.2.851.566 1132 [id number] Univers 00:00:00 00:00:00 14878.1.1 350.1.13.41 ity of 3.412.2.7 2.[place].7.3.698 [place] .3.455129 084.8 MD [facility] 2023-01-05 2023-01-05 Travel 1.2.840.1 1.2.150.954 1323 [id number] Univers 00:00:00 00:00:00 93086.1.1 350.1.13.41 ity of 3.412.2.7 2.2.7.3.698 [place] .3.124988 084.8 MD [facility] 2023-01-04 2023-01-04 Infusion Lemuel 1.2.840.1 [id number] [facility] 10:45:00 14:51:21 Lorena 29682.1.1 ity of Kay[place] 3.412.2.7 [place] .3.234929 MD [facility] 2023-01-04 2023-01-04 Infusion KYLAH Hdez, 1.2.840.1 [id number] 03690 [id number] Univers 10:45:00 14:51:21 Lorena 40011.1.1 ity of Kay[place] 3.412.2.7 [place] .3.660141 MD Soares8 [facility] 2023-01-04 2023-01-04 [facility], 1.2.840.1 [id number] [id number] Univers 14:00:00 14:25:20 Support Winter 44872.1.1 ity of Gini 3.412.2.7 [place] .3.875788 MD Soares8 [facility] 2023-01-04 2023-01-04 Clinical [facility], 1.2.840.1 [id number] 64973 [id number] [facility] 14:00:00 14:25:20 Support Winter 63598.1.1 ity of Gini 3.412.2.7 [place] .3.372879 MD [facility] 2023-01-04 2023-01-04 Outpatient KENYA CARRION [facility] [id number] 13:10:05 13:43:01 [facility] 2023-01-04 2023-01-04 Travel 1.2.840.1 1.2.617.773 1683 [id number] Univers 00:00:00 00:00:00 99405.1.1 350.1.13.41 ity of 3.412.2.7 [place].7.3.698 [place] .3.952348 084.8 MD [facility] 2023-01-04 2023-01-04 Travel 1.2.840.1 1.2.818.739 2222 [id number] Univers 00:00:00 00:00:00 00594.1.1 350.1.13.41 ity of 3.412.2.7 [place].7.3.698 [place] .3.391796 084.8 MD [facility] 2023-01-01 2023-01-01 Infusion Hdez, 1.2.840.1 [id number] 74225 Univers 09:00:00 14:20:57 Lorena 37664.1.1 ity of Kay[place] 3.412.2.7 [place] .3.517615 MD [facility] 2023-01-01 2023-01-01 Infusion KYLAH Lemuel, 1.2.840.1 [id number] 75412 [id number] Univers 09:00:00 14:20:57 Lorena 44899.1.1 ity of Kayla 3.412.2.7 [place] .3.989011 MD [facility] 2023-01-01 2023-01-01 Outpatient KENYA CARRION MDA MDA [id number] 13:31:26 14:06:59 Lauri olivier 2023-01-01 2023-01-01 Follow-Up Kenny Power, 1.2.840.1 [id number] Univers 08:40:00 09:31:03 Celarturo 38184.1.1 ity of 3.412.2.7 [place] .3.606651 MD [facility] 2023-01-01 2023-01-01 Follow-Up KYLAH Power, 1.2.840.1 [id number] Univers 08:40:00 09:31:03 Celyne 46610.1.1 ity of 3.412.2.7 [place] .3.676174 MD [facility] 2023-01-01 2023-01-01 Outpatient KYLAH HDEZ [facility] MDA [id number] 08:19:22 08:27:50 LORENA olivier 2023-01-01 2023-01-01 Rohith Guardado 1.2.840.1 [id number] Univers 00:00:00 00:00:00 Brittni Benjamin 35900.1.1 ity of 3.412.2.7 [place] .3.053302 MD [facility] 2023-01-01 2023-01-01 Travel 1.2.840.1 1.2.877.176 0944 247040 Univers 00:00:00 00:00:00 04471.1.1 350.1.13.41 ity of 3.412.2.7 2.[place].7.3.698 [place] .3.352052 084.8 .8 [facility] 2023-01-01 2023-01-01 Rohith Guardado, 1.2.840.1 [id number] 708 [id number] Univers 00:00:00 00:00:00 Brittni A 39132.1.1 ity of 3.412.2.7 [place] .3.783127 .8 [facility] 2023-01-01 2023-01-01 Travel 1.2.840.1 1.2.215.978 6376 [id number] Univers 00:00:00 00:00:00 47114.1.1 350.1.13.41 ity of 3.412.2.7 2.2.7.3.698 [place] .3.080619 084.8 MD [facility] 2022-12-31 2022-12-31 Telephone Carnlul, 1.2.840.1 [id number] 1103 [id number] Univers 00:00:00 00:00:00 Tita Mayorga 66565.1.1 ity of 3.412.2.7 [place] .3.329201 MD [facility] 2022-12-31 2022-12-31 Anabell Hdez, 1.2.840.1 [id number] Univers 00:00:00 00:00:00 Only Lorena 03821.1.1 ity of Kayla 3.412.2.7 [place] .3.881049 MD [facility] 2022-12-31 2022-12-31 Telephone Carnlul, 1.2.840.1 [id number] 1103 [id number] Univers 00:00:00 00:00:00 Tita Mayorga 77019.1.1 ity of 3.412.2.7 [place] .3.772083 MD [facility] 2022-12-31 2022-12-31 Anabell Hdez, 1.2.840.1 [id number] 3160 Univers 00:00:00 00:00:00 Only Lorena 91874.1.1 ity of Kayla 3.412.2.7 [place] .3.448183 MD [facility] 2022-12-30 2022-12-30 [facility], 1.2.840.1 [id number] 72939 [id number] Univers 09:33:09 23:59:00 Encounter Miguel Fernandez 02213.1.1 ity of 3.412.2.7 [place] .3.048801 MD Soares8 [facility] 2022-12-30 2022-12-30 [facility], 1.2.840.1 [id number] [id number] Univers 09:33:09 23:59:00 Encounter Miguel Fernandez 80189.1.1 ity of 3.412.2.7 [place] .3.831529 MD [facility] 2022-12-30 2022-12-30 Outpatient KENYA CARRION [facility] [id number] 13:48:18 14:15:54 [facility] 2022-12-30 2022-12-30 Travel 1.2.840.1 1.2.791.145 4260 [id number] Univers 00:00:00 00:00:00 06206.1.1 350.1.13.41 ity of 3.412.2.7 2.2.7.3.698 [place] .3.398101 084.8 MD [facility] 2022-12-30 2022-12-30 Travel 1.2.840.1 1.2.422.438 1869 [id number] Univers 00:00:00 00:00:00 24083.1.1 350.1.13.41 ity of 3.412.2.7 2.2.7.3.698 [place] .3.850149 084.8 MD [facility] 2022-12-29 2022-12-29 [facility], 1.2.840.1 [id number] 11 [id number] Univers 08:00:00 23:59:00 Encounter Suzanne 54097.1.1 it y of 3.412.2.7 [place] .3.000079 MD [facility] 2022-12-29 2022-12-29 [facility] 1.2.840.1 [id number] [facility] 08:00:00 23:59:00 Encounter Suzanne 89137.1.1 it y of 3.412.2.7 [place] .3.062721 MD [facility] 2022-12-29 2022-12-29 Outpatient KENYA CARRION [facility] [id number] 13:04:30 13:32:42 [facility] 2022-12-29 2022-12-29 Travel 1.2.840.1 1.2.504.607 8686 [id number] Univers 00:00:00 00:00:00 71380.1.1 350.1.13.41 ity of 3.412.2.7 2.2.7.3.698 [place] .3.624991 084.8 MD [facility] 2022-12-29 2022-12-29 Travel 1.2.840.1 1.2.539.538 9900 [id number] [facility] 00:00:00 00:00:00 28227.1.1 350.1.13.41 ity of 3.412.2.7 2.2.7.3.698 [place] .3.104799 08Dannielle.8 MD [facility] 2022-12-28 2022-12-28 [facility], 1.2.840.1 [id number] Univers 14:00:00 15:17:09 Support Winter 61300.1.1 ity of Gini 3.412.2.7 [place] .3.726114 MD [facility] 2022-12-28 2022-12-28 Clinical Jus, 1.2.840.1 [id number] 40357 [id number] Univers 14:00:00 15:17:09 Support Winter 63275.1.1 ity of Gini 3.412.2.7 [place] .3.747357 MD [facility] 2022-12-28 2022-12-28 Outpatient KENYA CARRION TAO BURGER [id number] 13:27:37 14:08:09 [facility] 2022-12-28 2022-12-28 Nutrition Kenya Agarwal. 1.2.840.1 [id number] Univers 10:00:00 10:53:45 Lian Jaramillo 40678.1.1 ity of 3.412.2.7 [place] .3.269923 MD Soares8 [facility] 2022-12-28 2022-12-28 Nutrition Manuel Carrionmindy Johnson. 1.2.840.1 [id number] Univers 10:00:00 10:53:45 Lian Jaramillo 43370.1.1 ity of 3.412.2.7 [place] .3.762261 MD Soares8 [facility] 2022-12-28 2022-12-28 Travel 1.2.840.1 1.2.022.850 1587 [id number] Univers 00:00:00 00:00:00 51927.1.1 350.1.13.41 ity of 3.412.2.7 2.2.7.3.698 [place] .3.488657 084.8 MD Soares8 [facility] 2022-12-28 2022-12-28 Travel 1.2.840.1 1.2.544.330 7635 [id number] Univers 00:00:00 00:00:00 94730.1.1 350.1.13.41 ity of 3.412.2.7 2.2.7.3.698 [place] .3.647664 084.8 MD Soares8 [facility] 2022-12-25 2022-12-25 Outpatient KENYA CARRION TAO BURGER [id number] 14:06:37 15:08:07 [address]uri [facility] 2022-12-25 2022-12-25 Travel 1.2.840.1 1.2.653.535 8103 [id number] Univers 00:00:00 00:00:00 82686.1.1 350.1.13.41 ity of 3.412.2.7 2.2.7.3.698 [place] .3.194146 084.8 MD Soares8 [facility] 2022-12-25 2022-12-25 Travel 1.2.840.1 1.2.238.777 5407 [id number] Univers 00:00:00 00:00:00 43565.1.1 350.1.13.41 ity of 3.412.2.7 2.2.7.3.698 [place] .3.048633 084.8 MD Soares8 [facility] 2022-12-24 2022-12-24 Infusion Lemuel, 1.2.840.1 [id number] 66225 [id number] Univers 08:45:00 15:46:35 Lorena 72938.1.1 ity of Kayla 3.412.2.7 [place] .3.561197 MD Soares8 [facility] 2022-12-24 2022-12-24 Infusion KYLAH Hdez, 1.2.840.1 [id number] 15700 [id number] Univers 08:45:00 15:46:35 Lorena 09739.1.1 ity of Kayla 3.412.2.7 [place] .3.812946 MD [facility] 2022-12-24 2022-12-24 Outpatient KENYA CARRION MDA MDA [id number] 13:51:59 14:40:52 Lauri [facility] 2022-12-24 2022-12-24 Follow-Up Kenny Power, 1.2.840.1 [id number] Univers 08:20:00 10:15:28 Celyne 88262.1.1 ity of 3.412.2.7 [place] .3.926802 MD [facility] 2022-12-24 2022-12-24 Follow-Up KYLAH Power, 1.2.840.1 [id number] Univers 08:20:00 10:15:28 Celyne 20684.1.1 ity of 3.412.2.7 [place] .3.060030 MD .8 [facility] 2022-12-24 2022-12-24 Outpatient KYLAH HDEZ, [facility] [id number] 09:15:48 09:27:18 [facility] 2022-12-24 2022-12-24 Telephone Castillo, 1.2.840.1 [id number] 1103 [id number] Univers 00:00:00 00:00:00 Felisa Costa 33997.1.1 ity of 3.412.2.7 [place] .3.516587 MD Soares8 [facility] 2022-12-24 2022-12-24 Telephone Kenya Agarwal 1.2.840.1 [id number] Univers 00:00:00 00:00:00 Y. 95723.1.1 ity of 3.412.2.7 [place] .3.935798 MD Soares8 [facility] 2022-12-24 2022-12-24 Telephone Carnew, 1.2.840.1 [id number] 1103 [id number] Univers 00:00:00 00:00:00 Tita Mayorga 36734.1.1 ity of 3.412.2.7 [place] .3.449019 MD Soares8 [facility] 2022-12-24 2022-12-24 Telephone Carnew, 1.2.840.1 [id number] 1103 [id number] Univers 00:00:00 00:00:00 Tita Mayorga 87124.1.1 ity of 3.412.2.7 [place] .3.378190 MD Soares8 [facility] 2022-12-24 2022-12-24 Telephone [facility], 1.2.840.1 [id number] Univers 00:00:00 00:00:00 Vaibhav 08109.1.1 ity of 3.412.2.7 [place] .3.808004 MD Soares8 [facility] 2022-12-24 2022-12-24 Travel 1.2.840.1 1.2.842.767 3040 [id number] Univers 00:00:00 00:00:00 83133.1.1 350.1.13.41 ity of 3.412.2.7 2.2.7.3.698 [place] .3.593617 084.8 MD [facility] 2022-12-24 2022-12-24 Orders Kenny Power, 1.2.840.1 [id number] Univers 00:00:00 00:00:00 Only Vaibhav 01410.1.1 ity of 3.412.2.7 [place] .3.536292 MD [facility] 2022-12-24 2022-12-24 Rohith Sheriff [facility] 1.2.840.114 [id number] Univers 00:00:00 00:00:00 [facility] 350.1.13.10 it y of CLARA 4.2.7.2.686 Frankie as JAVIER?BLEA [phone] [address] OFFICE BUILDING 2022-12-24 2022-12-24 Telephone Jonathan 1.2.840.1 [id number] 1103 [id number] Univers 00:00:00 00:00:00 Felisa Costa 27452.1.1 ity of 3.412.2.7 [place] .3.417415 MD [facility] 2022-12-24 2022-12-24 Telephone Kenya Agarwal 1.2.840.1 [id number] Univers 00:00:00 00:00:00 Henri. 85717.1.1 ity of 3.412.2.7 [place] .3.679341 MD [facility] 2022-12-24 2022-12-24 Telephone Doyle, 1.2.840.1 [id number] 1103 [id number] Univers 00:00:00 00:00:00 Tita Mayorga 76966.1.1 ity of 3.412.2.7 [place] .3.134491 MD [facility] 2022-12-24 2022-12-24 Telephone Doyle, 1.2.840.1 [id number] 1103 [id number] Univers 00:00:00 00:00:00 Tita Mayorga 13210.1.1 ity of 3.412.2.7 [place] .3.212799 MD [facility] 2022-12-24 2022-12-24 [facility] Jannet, 1.2.840.1 [id number] Univers 00:00:00 00:00:00 Celyne 28990.1.1 ity of 3.412.2.7 [place] .3.243794 MD Soares8 [facility] 2022-12-24 2022-12-24 Travel 1.2.840.1 1.2.939.342 7809 [id number] Univers 00:00:00 00:00:00 97326.1.1 350.1.13.41 ity of 3.412.2.7 2.2.7.3.698 [place] .3.420976 084.8 MD [facility] 2022-12-24 2022-12-24 [facility] Jannet, 1.2.840.1 [id number] 11 [id number] Univers 00:00:00 00:00:00 Only Celyne 01348.1.1 ity of 3.412.2.7 [place] .3.971598 MD [facility] 2022-12-23 2022-12-23 [facility], 1.2.840.1 [id number] Univers 09:30:00 23:59:00 Encounter Otilia 27887.1.1 it y of 3.412.2.7 [place] .3.456890 MD [facility] 2022-12-23 2022-12-23 [facility], 1.2.840.1 [id number] [id number] Univers 09:30:00 23:59:00 Encounter Otilia 10100.1.1 it y of 3.412.2.7 [place] .3.868539 MD [facility] 2022-12-23 2022-12-23 Outpatient KENYA CARRION [facility] [id number] 13:50:34 14:48:40 [facility] 2022-12-23 2022-12-23 Clinical Winter Luu 1.2.840.2 814 [id number] Univers 10:15:00 10:30:00 Support Dony Calhoun 98189.1.1 ity of 3.412.2.7 [place] .3.018905 MD [facility] 2022-12-23 2022-12-23 Clinical Winter Luu 1.2.840.9 886 [id number] Univers 10:15:00 10:30:00 Support Dony Calhoun 76201.1.1 ity of 3.412.2.7 [place] .3.802559 MD [facility] 2022-12-23 2022-12-23 Documentat Luu, 1.2.840.1 [id number] Univers 00:00:00 00:00:00 jennifer Winter 64729.1.1 ity of Gini 3.412.2.7 [place] .3.753074 MD [facility] 2022-12-23 2022-12-23 Telephone Kenny Power, 1.2.840.1 [id number] Univers 00:00:00 00:00:00 Vaibhav 29189.1.1 ity of 3.412.2.7 [place] .3.354070 MD [facility] 2022-12-23 2022-12-23 Telephone Doyle, 1.2.840.1 [id number] 1103 [id number] Univers 00:00:00 00:00:00 Tita Mayorga 57879.1.1 ity of 3.412.2.7 [place] .3.928328 MD [facility] 2022-12-23 2022-12-23 Travel 1.2.840.1 1.2.642.330 0716 [id number] Univers 00:00:00 00:00:00 13642.1.1 350.1.13.41 ity of 3.412.2.7 2.2.7.3.698 [place] .3.230189 084.8 MD [facility] 2022-12-23 2022-12-23 Orders Hdez, 1.2.840.1 [id number] Univers 00:00:00 00:00:00 Only Lorena 82150.1.1 ity of Kayla 3.412.2.7 [place] .3.108069 MD Soares8 [facility] 2022-12-23 2022-12-23 Documentat Luu, 1.2.840.1 [id number] 807 [id number] Univers 00:00:00 00:00:00 ion Winter 67547.1.1 ity of Gini 3.412.2.7 [place] .3.782747 MD Soares8 [facility] 2022-12-23 2022-12-23 Telephone Kenny Power, 1.2.840.1 [id number] Univers 00:00:00 00:00:00 Vaibhav 03802.1.1 ity of 3.412.2.7 [place] .3.725398 MD Soares8 [facility] 2022-12-23 2022-12-23 Telephone Doyle, 1.2.840.1 [id number] 1103 [id number] Univers 00:00:00 00:00:00 Tita Mayorga 14871.1.1 ity of 3.412.2.7 [place] .3.263259 MD [facility] 2022-12-23 2022-12-23 Travel 1.2.840.1 1.2.231.845 3321 [id number] Univers 00:00:00 00:00:00 39826.1.1 350.1.13.41 ity of 3.412.2.7 2.2.7.3.698 [place] .3.329012 084.8 MD [facility] 2022-12-23 2022-12-23 Orders Lemuel, 1.2.840.1 [id number] Univers 00:00:00 00:00:00 Only Lorena 17302.1.1 ity of Kayla 3.412.2.7 [place] .3.318730 MD [facility] 2022-12-18 2022-12-18 Orders Conklin, 1.2.840.1 [id number] 00577 [id number] Univers 00:00:00 00:00:00 Only Lindy 05889.1.1 ity of Ashleigh 3.412.2.7 [place] .3.940464 MD Soares8 [facility] 2022-12-18 2022-12-18 Orders Lan, 1.2.840.1 [id number] 11117 [id number] Univers 00:00:00 00:00:00 Only Lindy 61202.1.1 ity of Ashleigh 3.412.2.7 [place] .3.462842 .8 [facility] 2022-12-18 2022-12-18 Orders Lan, 1.2.840.1 [id number] 12728 34074 Univers 00:00:00 00:00:00 Only Lindy 40831.1.1 ity of Ashleigh 3.412.2.7 [place] .3.350262 .8 [facility] 2022-12-18 2022-12-18 Orders Lan, 1.2.840.1 [id number] 29215 44179 Univers 00:00:00 00:00:00 Only Lindy 51043.1.1 ity of Ashleigh 3.412.2.7 [place] .3.251688 MD Soares8 [facility] 2022-12-17 2022-12-17 Clinical Kenya Agarwal 1.2.840.1 [id number] Univers 08:00:00 10:48:06 Support Maria Luz Cochran 44717.1.1 ity of 3.412.2.7 [place] .3.621772 MD Soares8 [facility] 2022-12-17 2022-12-17 Clinical Kenya Carrion 1.2.840.1 [id number] Univers 08:00:00 10:48:06 Support Maria Luz Cochran 34791.1.1 ity of 3.412.2.7 [place] .3.913795 .8 [facility] 2022-12-17 2022-12-17 Outpatient [facility], [facility] [id number] 08:37:01 10:43:17 WINTER olivier 2022-12-17 2022-12-17 [facility], 1.2.840.1 [id number] 782 [id number] Univers 00:00:00 00:00:00 ion Witner 44200.1.1 ity of Gini 3.412.2.7 [place] .3.205628 MD Soares8 [facility] 2022-12-17 2022-12-17 [facility], 1.2.840.1 [id number] 578 [id number] Univers 00:00:00 00:00:00 ion Winter 81415.1.1 ity of Gini 3.412.2.7 [place] .3.394326 MD [facility] 2022-12-17 2022-12-17 [facility], 1.2.840.1 [id number] Univers 00:00:00 00:00:00 jennifer Max 75067.1.1 ity of [place] 3.412.2.7 [place] .3.801471 MD Blair [facility] 2022-12-17 2022-12-17 Anabell Hdez, 1.2.840.1 [id number] Univers 00:00:00 00:00:00 Only Lorena 11636.1.1 ity of Kayla 3.412.2.7 [place] .3.786731 MD Blair [facility] 2022-12-17 2022-12-17 Travel 1.2.840.1 1.2.240.453 [id number] Univers 00:00:00 00:00:00 38217.1.1 350.1.13.41 ity of 3.412.2.7 2.[place].3.698 [place] .3.258912 084.8 MD Blair [facility] 2022-12-17 2022-12-17 [facility] Jus, 1.2.840.1 [id number] Univers 00:00:00 00:00:00 Only Winter 17074.1.1 ity of Gini 3.412.2.7 [place] .3.962259 MD Blair [facility] 2022-12-17 2022-12-17 [facility], 1.2.840.1 [id number] Univers 00:00:00 00:00:00 ion Winter 01326.1.1 ity of Gini 3.412.2.7 [place] .3.029194 MD Blair [facility] 2022-12-17 2022-12-17 [facility], 1.2.840.1 [id number] Univers 00:00:00 00:00:00 ion Winter 55734.1.1 ity of [place] 3.412.2.7 [place] .3.107896 MD Blair [facility] 2022-12-17 2022-12-17 [facility], 1.2.840.1 [id number] Univers 00:00:00 00:00:00 ion Winter 43176.1.1 ity of Gini 3.412.2.7 [place] .3.200703 MD Blair [facility] 2022-12-17 2022-12-17 Anabell Hdez, 1.2.840.1 [id number] Univers 00:00:00 00:00:00 Only Lorena 51440.1.1 ity of Kayla 3.412.2.7 [place] .3.407290 MD Blair [facility] 2022-12-17 2022-12-17 Travel 1.2.840.1 1.2.535.858 [id number] Univers 00:00:00 00:00:00 91736.1.1 350.1.13.41 ity of 3.412.2.7 [place].3.698 [place] .3.495440 084.8 MD Blair [facility] 2022-12-17 2022-12-17 [facility] Jus, 1.2.840.1 [id number] Univers 00:00:00 00:00:00 Only Winter 13584.1.1 ity of Gini 3.412.2.7 [place] .3.173589 MD Soares8 [facility] 2022-12-16 2022-12-16 [facility], 1.2.840.1 [id number] Univers 00:00:00 00:00:00 Only Winter 16383.1.1 ity of Gini 3.412.2.7 [place] .3.647144 MD Soares8 [facility] 2022-12-16 2022-12-16 Telephone Castillo, 1.2.840.1 [id number] Univers 00:00:00 00:00:00 Felisa M 08739.1.1 ity of 3.412.2.7 [place] .3.519291 MD Soares8 [facility] 2022-12-16 2022-12-16 Telephone Rosmery Dickinson 1.2.840.1 [id number] Univers 00:00:00 00:00:00 M 06396.1.1 ity of 3.412.2.7 [place] .3.203174 MD Soares8 [facility] 2022-12-16 2022-12-16 [facility], 1.2.840.1 [id number] Univers 00:00:00 00:00:00 Only Winter 81769.1.1 ity of Gini 3.412.2.7 [place] .3.852831 MD Soares8 [facility] 2022-12-16 2022-12-16 Scotia Castillo, 1.2.840.1 [id number] [id number] Univers 00:00:00 00:00:00 Felisa M 12204.1.1 ity of 3.412.2.7 [place] .3.975465 MD Soares8 [facility] 2022-12-16 2022-12-16 Telephone Rosmery Dickinson 1.2.840.1 [id number] Univers 00:00:00 00:00:00 M 66993.1.1 ity of 3.412.2.7 [place] .3.015093 MD Soares8 [facility] [place] 2022-12-15 2022-12-15 [facility] [place] Agarwal 1.2.840.1 [id number] Univers 08:42:55 23:59:00 Encounter Y. 42324.1.1 it y of 3.412.2.7 [place] .3.620991 .8 [facility] 2022-12-15 2022-12-15 [facility] [place] Agarwal 1.2.840.1 [id number] Univers 08:42:55 23:59:00 Encounter Y. 91882.1.1 it y of 3.412.2.7 [place] .3.400619 .8 [facility] 2022-12-09 2022-12-15 [facility] Mer Milian 1.2.840.1 [id number] Univers 21:01:00 19:30:00 Encounter Roberto Carlos Walsh 83833.1.1 ity of Regulo, Abelino-Izzy 3.412.2.7 [facility] Graciela .3.107821 Jaycee Muñoz .8 [facility], Cerena [facility] 2022-12-09 2022-12-15 [facility] Mer Milian 1.2.840.1 [id number] Univers 21:01:00 19:30:00 Encounter Roberto Carlos Walsh 00592.1.1 ity of Regulo, Abelino-Izzy 3.412.2.7 [facility] .3.614886 Jaycee Muñoz .8 Travis Hebert, Derrick Cancer Ordaz, Cerena [facility] 2022-12-15 2022-12-15 Outpatient KYLAH BAI MDA MDA [id number] 08:39:37 15:02:22 RON olivier 2022-12-15 2022-12-15 Inpatient KYLAH DAVIS MDA MDA [id number] MD 09:34:01 10:58:12 [facility] 2022-12-15 2022-12-15 Refmaddie Montenegro, 1.2.840.1 [id number] Univers 00:00:00 00:00:00 Lindy 96318.1.1 ity of Ashleigh 3.412.2.7 [place] .3.559806 MD Soares8 [facility] 2022-12-15 2022-12-15 Orders [place] 1.2.840.1 [id number] Univers 00:00:00 00:00:00 Only a, 24853.1.1 ity of [place].7 [place] .3.531865 MD Soares8 [facility] 2022-12-15 2022-12-15 Orders Koyyalagunt 1.2.840.1 [id number] 11 [id number] Univers 00:00:00 00:00:00 Only a, 53047.1.1 it[place] of [place] .3.749220 MD Soares8 [facility] 2022-12-15 2022-12-15 Orders Reggiemandi, 1.2.840.1 [id number] 1102 [id number] Univers 00:00:00 00:00:00 Only Maya 63429.1.1 ity of 3.412.2.7 [place] .3.218043 MD Soares8 [facility] 2022-12-15 2022-12-15 Ophth Exam Dawson, 1.2.840.1 [id number] 1 [id number] Univers 00:00:00 00:00:00 Maya 43414.1.1 ity of 3.412.2.7 [place] .3.611595 MD Soares8 [facility] 2022-12-15 2022-12-15 Rohith Montenegro, 1.2.840.1 [id number] 53057 20040 Univers 00:00:00 00:00:00 Lindy 32716.1.1 ity of [place] 3.412.2.7 [place] .3.474114 MD Soares8 [facility] 2022-12-15 2022-12-15 Orders K[place] 1.2.840.1 [id number] 11 [id number] Univers 00:00:00 00:00:00 Only a, 18675.1.1 it[place] of [place] .3.806448 MD Soares8 [facility] 2022-12-15 2022-12-15 Orders K[place] 1.2.840.1 [id number] 11 [id number] Univers 00:00:00 00:00:00 Only a, 19258.1.1 it[place] of [place] .3.389282 MD Soares8 [facility] 2022-12-15 2022-12-15 Orders Razmandi, 1.2.840.1 [id number] 1102 [id number] Univers 00:00:00 00:00:00 Only Maya 56591.1.1 ity of 3.412.2.7 [place] .3.789761 MD Soares8 [facility] 2022-12-15 2022-12-15 Ophth Exam Dawson, 1.2.840.1 [id number] 1 [id number] Univers 00:00:00 00:00:00 Maya 83031.1.1 ity of 3.412.2.7 [place] .3.558850 MD Soares8 [facility] 2022-12-14 2022-12-14 Inpatient KENYA CARRION [facility] 1102 [id number] 17:21:25 17:21:31 [facility] 2022-12-14 2022-12-14 Orders Martínez, 1.2.840.1 [id number] 5071 [facility] 00:00:00 00:00:00 Only Wilder 17488.1.1 ity of 3.412.2.7 [place] .3.394132 MD Soares8 [facility] 2022-12-14 2022-12-14 Orders Martínez, 1.2.840.1 [id number] 5357 Univers 00:00:00 00:00:00 Only Wilder 90398.1.1 ity of 3.412.2.7 [place] .3.363482 MD Soares8 [facility] 2022-12-11 2022-12-11 Inpatient KENYA CARRION [facility] 1102 [id number] 11:49:45 11:49:48 [facility] 2022-12-11 2022-12-11 Telephone Gomez, 1.2.840.1 [id number] 1102 [id number] Univers 00:00:00 00:00:00 Maridel P 83455.1.1 it y of 3.412.2.7 [place] .3.766323 MD Soares8 [facility] 2022-12-11 2022-12-11 Telephone Jason, 1.2.840.1 [id number] 1102 [id number] Univers 00:00:00 00:00:00 Maridel P 39757.1.1 it y of 3.412.2.7 [place] .3.339302 MD [facility] 2022-12-10 2022-12-10 Travel 1.2.840.1 1.2.388.332 8065 239001 Univers 00:00:00 00:00:00 57253.1.1 350.1.13.41 ity of 3.412.2.7 2.[place]7.3.698 [place] .3.624536 08Dannielle.8 MD [facility] 2022-12-10 2022-12-10 Orders Martínez, 1.2.840.1 [id number] 6127 Univers 00:00:00 00:00:00 Only Wilder 74658.1.1 ity of 3.412.2.7 [place] .3.999517 MD [facility] 2022-12-10 2022-12-10 Travel 1.2.840.1 1.2.985.197 9538 385349 Univers 00:00:00 00:00:00 52940.1.1 350.1.13.41 ity of 3.412.2.7 2.[place]7.3.698 [place] .3.409849 084.8 MD Soares8 [facility] 2022-12-10 2022-12-10 Orders Martínez, 1.2.840.1 [id number] 4738 Univers 00:00:00 00:00:00 Only Wilder 60607.1.1 ity of 3.412.2.7 [place] .3.848789 MD Soares8 [facility] 2022-12-08 2022-12-08 Telephone Lan, 1.2.840.1 [id number] 774 [id number] Univers 00:00:00 00:00:00 Lindy 61131.1.1 ity of [place] 3.412.2.7 [place] .3.085161 MD [facility] 2022-12-08 2022-12-08 Orders Lemuel, 1.2.840.1 [id number] 7962 Univers 00:00:00 00:00:00 Only Lorena 46741.1.1 ity of [place]la 3.412.2.7 [place] .3.481545 MD [facility] 2022-12-08 2022-12-08 Telephone Lan, 1.2.840.1 [id number] 428 [id number] Univers 00:00:00 00:00:00 Lindy 35403.1.1 ity of [place] 3.412.2.7 [place] .3.089799 MD [facility] 2022-12-08 2022-12-08 Orders Lemuel, 1.2.840.1 [id number] 0747 Univers 00:00:00 00:00:00 Only Lorena 41174.1.1 ity of [place] 3.412.2.7 [place] .3.772146 MD [facility] 2022-12-05 2022-12-05 Telephone Luu, 1.2.840.1 [id number] 1102 [id number] Univers 00:00:00 00:00:00 Winter 99496.1.1 ity of [place] 3.412.2.7 [place] .3.818219 MD .8 [facility] 2022-12-05 2022-12-05 [facility], 1.2.840.1 [id number] 1705 Univers 00:00:00 00:00:00 Only Winter 31786.1.1 ity of [place] 3.412.2.7 [place] .3.430863 MD [facility] 2022-12-05 2022-12-05 [facility], 1.2.840.1 [id number] 1102 [id number] Univers 00:00:00 00:00:00 Winter 38290.1.1 ity of [place] 3.412.2.7 [place] .3.845362 MD [facility] 2022-12-05 2022-12-05 [facility], 1.2.840.1 [id number] 2025 Univers 00:00:00 00:00:00 Only Winter 80377.1.1 ity of [place] 3.412.2.7 [place] .3.705770 MD [facility] 2022-12-04 [facility]22[facility]12[facility].2.840 .1 [id number] Univers 10:55:00 23:59:00 Encounter Lorena Hdez 76963.1.1 ity of 3.412.2.7 [place] .3.701472 MD [facility] 2022-12-04 [facility]22[facility]12-04 [facility] .1 [id number] Univers 10:55:00 23:59:00 Encounter Lorena Hdez 74838.1.1 ity of 3.412.2.7 [place] .3.948724 MD [facility] 2022-12-04 2022-12-04 Telephone Antonella, 1.2.840.1 [id number] 11 [id number] Univers 00:00:00 00:00:00 Red Costa 60872.1.1 it y of 3.412.2.7 [place] .3.059772 MD [facility] 2022-12-04 2022-12-04 Multidisci Antonella, 1.2.840.1 [id number] 1 [id number] Univers 00:00:00 00:00:00 dali Costa 98970.1.1 it y of Visit 3.412.2.7 [place] .3.831760 MD Soares8 [facility] 2022-12-04 2022-12-04 Telephone Dimas, 1.2.840.1 [id number] 11 [id number] Univers 00:00:00 00:00:00 Maria Luz Lund 84248.1.1 ity of 3.412.2.7 [place] .3.286925 MD Soares8 [facility] 2022-12-04 2022-12-04 Telephone Antonella, 1.2.840.1 [id number] 11 [id number] Univers 00:00:00 00:00:00 Red Napoleon 59491.1.1 it y of 3.412.2.7 [place] .3.749166 MD Soares8 [facility] 2022-12-04 2022-12-04 Multidisci Antonella, 1.2.840.1 [id number] 1 [id number] Univers 00:00:00 00:00:00 dali Costa 53574.1.1 it y of Visit 3.412.2.7 [place] .3.005205 MD Soares8 [facility] 2022-12-04 2022-12-04 Telephone Dimas, 1.2.840.1 [id number] 11 [id number] Univers 00:00:00 00:00:00 Maria Luz Lund 43537.1.1 ity of 3.412.2.7 [place] .3.864769 MD Soares8 [facility] 2022-12-02 2022-12-02 Anabell Montenegro 1.2.840.1 [id number] Univers 00:00:00 00:00:00 Only Lindy 93675.1.1 ity of [place] 3.412.2.7 [place] .3.305453 MD Soares8 [facility] 2022-12-02 2022-12-02 Orders Luu, 1.2.840.1 [id number] 7685 Univers 00:00:00 00:00:00 Only Winter 43296.1.1 ity of [place] 3.412.2.7 [place] .3.681790 MD [facility] 2022-12-02 2022-12-02 Orders Lan, 1.2.840.1 [id number] 73576 41041 Univers 00:00:00 00:00:00 Only Lindy 48425.1.1 ity of [place] 3.412.2.7 [place] .3.906801 MD [facility] 2022-12-02 2022-12-02 Orders Luu, 1.2.840.1 [id number] 1789 Univers 00:00:00 00:00:00 Only Winter 26741.1.1 ity of [place] 3.412.2.7 [place] .3.817328 MD [facility] 2022-11-30 2022-11-30 Ancillary Hdez, 1.2.840.1 [id number] 1102 [id number] Univers 08:15:00 10:00:00 Procedure Lorena 04540.1.1 i ty of Kayla 3.412.2.7 [place] .3.826438 MD [facility] 2022-11-30 2022-11-30 Ancillary KYLAH Hdez, 1.2.840.1 [id number] 1102 [id number] Univers 08:15:00 10:00:00 Procedure Lorena 11524.1.1 i ty of Kayla 3.412.2.7 [place] .3.314252 MD [facility] 2022-11-30 2022-11-30 Travel 1.2.840.1 1.2.775.841 5784 575572 Univers 00:00:00 00:00:00 95688.1.1 350.1.13.41 ity of 3.412.2.7 2.2.7.3.698 [place] .3.983767 084.8 MD [facility] 2022-11-30 2022-11-30 Travel 1.2.840.1 1.2.592.762 7501 651012 Univers 00:00:00 00:00:00 86551.1.1 350.1.13.41 ity of 3.412.2.7 2.2.7.3.698 [place] .3.173635 084.8 .8 [facility] 2022-11-27 2022-11-27 Ancillary Lan, 1.2.840.1 [id number] 936 [id number] Univers 12:00:00 14:30:00 Procedure Lindy 05599.1.1 it y of [place] 3.412.2.7 [place] .3.609431 MD Soares8 [facility] 2022-11-27 2022-11-27 Ancillary KYLAH Montenegro, 1.2.840.1 [id number] 555 [id number] Univers 12:00:00 14:30:00 Procedure Lindy 82825.1.1 it y of [place] 3.412.2.7 [place] .3.547719 MD Soares8 [facility] 2022-11-27 2022-11-27 Travel 1.2.840.1 1.2.935.184 1952 [id number] Univers 00:00:00 00:00:00 33056.1.1 350.1.13.41 ity of 3.412.2.7 2.2.7.3.698 [place] .3.921955 084.8 MD Soares8 [facility] 2022-11-27 2022-11-27 Travel 1.2.840.1 1.2.765.025 2477 [id number] Univers 00:00:00 00:00:00 24464.1.1 350.1.13.41 ity of 3.412.2.7 2.2.7.3.698 [place] .3.016738 084.8 MD Soares8 [facility] 2022-11-26 2022-11-26 Outpatient KYLAH HDEZ MDA MDA [id number] 207 13:07:20 13:20:48 LORENA suarez 2022-11-26 2022-11-26 Consult Kenny Power, 1.2.840.1 [id number] 11 [id number] Univers 11:00:00 13:02:56 Celyne 54793.1.1 ity of 3.412.2.7 [place] .3.119015 MD Soares8 [facility] 2022-11-26 2022-11-26 Consult EL Kenny Pwoer, 1.2.840.1 [id number] 11 [id number] Univers 11:00:00 13:02:56 Celyne 76696.1.1 ity of 3.412.2.7 [place] .3.197753 MD Soares8 [facility] 2022-11-26 2022-11-26 Consult [place], 1.2.840.1 [id number] 3450 Univers 10:00:00 11:43:01 Winter 70033.1.1 ity of Gini 3.412.2.7 [place] .3.830951 MD Soares8 [facility] 2022-11-26 2022-11-26 Consult [facility], 1.2.840.1 [id number] 6323 Univers 10:00:00 11:43:01 Winter 16305.1.1 ity of Gini 3.412.2.7 [place] .3.699893 MD Soares8 [facility] 2022-11-26 2022-11-26 Travel 1.2.840.1 1.2.529.161 2036 [id number] Univers 00:00:00 00:00:00 69825.1.1 350.1.13.41 ity of 3.412.2.7 2.2.7.3.698 [place] .3.084613 084.8 MD [facility] 2022-11-26 2022-11-26 Travel 1.2.840.1 1.2.047.207 7407 899956 Univers 00:00:00 00:00:00 39280.1.1 350.1.13.41 ity of 3.412.2.7 2.2.7.3.698 [place] .3.350809 084.8 MD [facility] 2022-11-24 2022-11-24 Lab David Nunez 1.2.840.1 [id number] 52 [id number] Univers 00:00:00 00:00:00 Alexa Cantrell 22010.1.1 i ty of n 3.412.2.7 [place] .3.199689 MD [facility] 2022-11-24 2022-11-24 Lab David Nunez 1.2.840.1 [id number] 52 [id number] Univers 00:00:00 00:00:00 Alexa Cantrell 93785.1.1 i ty of n 3.412.2.7 [place] .3.690550 MD [facility] 2022-11-23 2022-11-23 Telephone Jeffy, 1.2.840.1 [id number] 1101 [id number] Univers 00:00:00 00:00:00 Macaela T 13584.1.1 it y of 3.412.2.7 [place] .3.851434 MD Soares8 [facility] 2022-11-23 2022-11-23 Telephone Jeffy, 1.2.840.1 [id number] 1101 [id number] Univers 00:00:00 00:00:00 Macaela T 03945.1.1 it y of 3.412.2.7 [place] .3.209597 MD [facility] 2022-11-22 2022-11-22 Orders Olivier, 1.2.840.1 [id number] 6358 Univers 00:00:00 00:00:00 Only Berkley 89482.1.1 ity of 3.412.2.7 [place] .3.904044 MD [facility] 2022-11-22 2022-11-22 Orders Olivier, 1.2.840.1 [id number] 2847 Univers 00:00:00 00:00:00 Only Berkley 47214.1.1 ity of 3.412.2.7 [place] .3.390954 MD [facility] 2022-11-20 2022-11-20 Telephone Mateusz, 1.2.840.1 [id number] 1101 [id number] Univers 00:00:00 00:00:00 Elana 08266.1.1 ity of 3.412.2.7 [place] .3.106084 MD Soares8 [facility] 2022-11-20 2022-11-20 Telephone Mateusz, 1.2.840.1 [id number] 1101 [id number] Univers 00:00:00 00:00:00 Elana 29860.1.1 ity of 3.412.2.7 [place] .3Rodger125526 .8 [facility] 2022-11-18 2022-11-18 Refill Doctor [facility] 1.2.840.114 [id number] Univers 00:00:00 00:00:00 Unassigned, HEALTH 350.1.13.10 ity of [place] 4.2.7.2.686 Frankie as JAVIER?BLEA [phone] [address] OFFICE [facility] 2022-11-18 2022-11-18 Telephone Sheriff [facility] 1.2.559.557 8667 2755 Univers 00:00:00 00:00:00 Nereida HEALTH 350.1.13.10 it y of [place] 4.2.7.2.686 Frankie as JAVIER?BLEA [phone] [address] 2022-11-17 2022-11-17 Outpatient KYLAH POSADA MDA [facility] [id number] 11:49:34 15:08:37 RED Lauri jaramillo 2022-11-17 2022-11-17 Office Kenya Agarwal 1.2.840.1 [id number] 11 [id number] Univers 09:15:00 11:44:36 Visit Y. 43689.1.1 ity of 3.412.2.7 [place] .3.306064 .8 [facility] 2022-11-17 2022-11-17 Office EL Kenya Agarwal 1.2.840.1 [id number] 11 [id number] Univers 09:15:00 11:44:36 Visit Y. 53883.1.1 ity of 3.412.2.7 [place] .3.000216 MD [facility] 2022-11-17 2022-11-17 NPR Kenya Agarwal 1.2.840.1 [id number] 11 [id number] Univers 08:45:00 09:16:44 Y. 83817.1.1 ity of 3.412.2.7 [place] .3.655255 MD Soares8 [facility] 2022-11-17 2022-11-17 NPR EL Kenya Agarwal 1.2.840.1 [id number] 11 [id number] Univers 08:45:00 09:16:44 Y. 60418.1.1 ity of 3.412.2.7 [place] .3.192532 MD [facility] 2022-11-17 2022-11-17 Travel 1.2.840.1 1.2.898.126 0745 [id number] Univers 00:00:00 00:00:00 43347.1.1 350.1.13.41 ity of 3.412.2.7 2.2.7.3.698 [place] .3.579434 084.8 MD [facility] 2022-11-17 2022-11-17 Telephone Jaziel WVDERREK 1.2.851.957 2433 6046 Univers 00:00:00 00:00:00 Workiva 350.1.13.10 it [facility] 4.2.7.2.686 Frankie as JAVIER?BLEA [id number] [address] MEDICAL OFFICE BUILDING 2022-11-17 2022-11-17 Travel 1.2.840.1 1.2.557.981 3233 [id number] Univers 00:00:00 00:00:00 84837.1.1 350.1.13.41 ity of 3.412.2.7 2.2.7.3.698 [place] .3.074748 084.8 MD [facility] 2022-11-16 2022-11-16 Orders Antonella 1.2.840.1 [id number] 1101 [id number] Univers 00:00:00 00:00:00 Only Red Napoleon 77722.1.1 it y of 3.412.2.7 [place] .3.964346 MD Soares8 [facility] 2022-11-16 2022-11-16 Orders Antonella 1.2.840.1 [id number] 1101 [id number] Univers 00:00:00 00:00:00 Only Red [place] 67582.1.1 it y of 3.412.2.7 [place] .3.768696 MD Soares8 [facility] 2022-11-13 2022-11-13 [facility] 1.2.456.564 9811 7693 Univers 00:00:00 00:00:00 Nereida [facility] 350.1.13.10 it y of [place]SH[place] 4.2.7.2.686 Frankie as JAVIER?BLEA [id number] [address] MEDICAL OFFICE BUILDING 2022-11-12 2022-11-12 Orders Yinka 1.2.840.1 [id number] 1101 [id number] Univers 00:00:00 00:00:00 Only Chloe Alejandre 17526.1.1 it y of 3.412.2.7 [place] .3.429286 MD [facility] 2022-11-12 2022-11-12 Orders Antonella 1.2.840.1 [id number] 1101 [id number] Univers 00:00:00 00:00:00 Only Red Napoleon 39411.1.1 it y of 3.412.2.7 [place] .3.340132 MD Soares8 [facility] 2022-11-12 2022-11-12 Orders Yinka 1.2.840.1 [id number] 1101 [id number] Univers 00:00:00 00:00:00 Only Chloe Alejandre 67215.1.1 it y of 3.412.2.7 [place] .3.349689 MD [facility] 2022-11-12 2022-11-12 Orders Antonella 1.2.840.1 [id number] 1101 [id number] [facility] 00:00:00 00:00:00 Only Red [place] 77024.1.1 it y of 3.412.2.7 [place] .3.950547 MD Rodger8 [facility] 2022-11-07 2022-11-07 Refmaddie [facility] 1.2.840.114 [id number] Univers 00:00:00 00:00:00 Milfay HEALTH 350.1.13.10 it y of [place] 4.2.7.2.686 Frankie as JAVIER?BLEA [phone] [address] MEDICAL OFFICE [facility] 2022-11-03 2022-11-03 [facility] 1.2.840.114 [id number] Univers 00:00:00 00:00:00 Milfay HEALTH 350.1.13.10 it y of [place] 4.2.7.2.686 Frankie as JAVIER?BLEA [id number] [address] MEDICAL OFFICE [facility] 2022-11-03 2022-11-03 [facility] 1.2.840.114 [id number] Univers 00:00:00 00:00:00 Lee HEALTH 350.1.13.10 it y of [place] 4.2.7.2.686 Frankie as JAVIER?BLEA [id number] [address] OFFICE [facility] 2022-10-21 2022-10-21 Office [facility] 1.2.840.114 [id number] Univers 09:30:00 09:45:[address] [facility] 350.1.13.10 it y of [place] 4.2.7.2.686 Frankie as JAVIER?BLEA [id number] [address] OFFICE [facility] 2022-10-21 2022-10-21 Outpatient R JAZIEL [facility] [id number] Univers 09:30:00 09:24:24 NEREIDA ity [facility] 2022-10-01 2022-10-01 Refmaddie [facility] 1.2.840.114 [id number] Univers 00:00:00 00:00:00 [facility] 350.1.13.10 it y of [place] 4.2.7.2.686 Frankie as JAVIER?BLEA [phone] Ky mary GOEL 0[address] [facility] OFFICE [facility] 2022-09-21 2022-09-21 Outpatient R JAZIEL [facility] [id number] 005 Univers 10:00:00 10:00:00 NEREIDA ity of [facility] [place] 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 350.1.13.10 ity of [place] 4.2.7.2.686 Frankie as JAVIER?BLEA [phone] [place] mary GOEL 353 [facility] OFFICE [facility] 2022-09-21 2022-09-21 Office [facility] 1.2.840.114 [id number] Univers 09:45:00 10:00:[address] [facility] 350.1.13.10 it y of [place] 4.2.7.2.686 Frankie as JAVIER?BLEA [phone] [place] mary GOEL [address] [place] [address] OFFICE [facility] 2022-09-18 2022-09-18 Refmaddie [facility] 1.2.840.114 [id number] Univers 00:00:00 00:00:00 [facility] 350.1.13.10 it y of [place] 4.2.7.2.686 Frankie as JAVIER?BLEA [phone] [place] mary GEOL [address] [place] [address] OFFICE [facility] 2022-09-17 2022-09-17 Refill [facility] 1.2.840.114 [id number] Univers 00:00:00 00:00:00 [facility] 350.1.13.10 it y of [place] 4.2.7.2.686 Frankie as JAVIER?BLEA [phone] [place] mary GOEL [address] [place] [address] MEDICAL OFFICE [facility] 2022-09-07 2022-09-07 Refmaddie [facility] 1.2.840.114 [id number] Univers 00:00:00 00:00:00 [facility] 350.1.13.10 it y of [place] 4.2.7.2.686 Frankie as JAVIER?BLEA [phone] Me dical KNEY 044 [facility] OFFICE [facility] 2022-09-03 2022-09-03 [facility] 1.2.840.114 [id number] Univers 00:00:00 00:00:00 Nereida HEALTH 350.1.13.10 it y [facility] 4.2.7.2.686 Frankie as JAVIER?BLEA [phone] [place] dical KNEY 044 [facility] OFFICE [facility] 2022-09-03 2022-09-03 [facility] 1.2.840.114 [id number] Univers 00:00:00 00:00:00 Nereida HEALTH 350.1.13.10 it y [facility] 4.2.7.2.686 Frankie as JAVIER?BLEA [id number] Ky dical KNEY 044 [facility] 2022-08-28 2022-08-28 Outpatient R JO [facility] [id number] Univers 08:05:50 23:59:00 BLANCHE ity of [facility] [place] [facility] 2022-08-28 2022-08-28 [facility] 1.2.840.114 [id number] Univers 08:05:50 23:59:00 Encounter Blanche LEE 350.1.13.10 ity of [place] 4.2.7.2.686 [place] [id number] [address] 2022-08-28 2022-08-28 Shift Engineer Royal, Jenniffer Lab Main [facility] 1.2.8 40.114 [id number] Univers 08:15:00 08:30:00 Visit Blanche Osorio 350.1.13.10 ity of [facility] 4.2.7.2.686 [place] [facility] [phone] [place]ical N[place] 353 [facility] 2022-08-28 2022-08-28 Telephone Jo [facility] [id number] [id number] Univers 00:00:00 00:00:00 Blanche HEALTH 350.1.13.10 it y of [place] 4.2.7.2.686 Frankie as JAVIER?BLEA [phone] Me dical KNEY [address] MEDICAL OFFICE [facility] 2022-08-26 2022-08-26 Outpatient [facility] [id number] Univers 00:00:00 00:00:00 BLANCHE pierre [facility] 2022-08-25 2022-08-25 Outpatient [facility] [id number] Univers 10:00:00 11:23:37 BLANCHE pierre [facility] 2022-08-25 2022-08-25 Office [facility] 1.2.840.114 [id number] Univers 10:00:00 11:23:37 Visit Blanche HEALTH 350.1.13.10 it y of [place] 4.2.7.2.686 Frankie as JAVIER?BLEA [phone] [address] OFFICE [facility] 2022-08-24 2022-08-24 Telephone [facility] [id number] Univers 00:00:00 00:00:00 Blanche HEALTH 350.1.13.10 it y of [place] 4.2.7.2.686 Frankie as JAVIER?BLEA [phone] [address] OFFICE [facility] 2022-08-21 2022-08-21 Refmaddie [facility] 1.2.840.114 [id number] Univers 00:00:00 00:00:00 Nereida HEALTH 350.1.13.10 it y of [place] 4.2.7.2.686 Frankie as JAVIER?BLEA [phone] [address] MEDICAL OFFICE [facility] 2022-08-18 2022-08-18 Refmaddie [facility] 1.2.840.114 [id number] Univers 00:00:00 00:00:00 Nereida HEALTH 350.1.13.10 it y of [place] 4.2.7.2.686 Frankie as JAVIER?BLEA [phone] [address] OFFICE [facility] 2022-08-06 2022-08-06 Refmaddie [facility] 1.2.840.114 [id number] Univers 00:00:00 00:00:00 Nereida HEALTH 350.1.13.10 it [facility] 4.2.7.2.686 Frankie as JAVIER?BLEA [phone] [place] mary GOEL [address] [place] [address] OFFICE [facility] 2022-08-05 2022-08-05 [facility] 1.2.840.114 [id number] Univers 00:00:00 00:00:00 Nereida HEALTH 350.1.13.10 it y of [place] 4.2.7.2.686 Frankie as JAVIER?BLEA [phone] [place] mary GOEL [address] [place] [address] OFFICE [facility] 2022-07-30 2022-07-30 [facility] 1.2.840.114 [id number] Univers 00:00:00 00:00:[address] [facility].1.13.10 it y of [place] 4.2.7.2.686 Frankie as JAVIER?BLEA [phone] [address] 2022-07-28 2022-07-28 [facility] Rodger [facility] [id number] [facility] [address] 11:11:47 23:59:00 Encounter [facility] 2022-07-28 2022-07-28 Outpatient [facility] Rodger [facility] [id number] [facility] 11:11:47 23:59:00 2022-07-28 2022-07-28 [facility] [id number] 11:11:47 23:59:00 Encounter [facility] 2022-07-26 2022-07-26 [facility] 1.2.840.114 [id number] Univers 00:00:00 00:00:00 [facility] 350.1.13.10 it y of [place] 4.2.7.2.686 Frankie as JAVIER?BLEA [phone] [place] mausd AMANDO [address] [place] [address] OFFICE [facility] 2022-07-21 2022-07-21 [facility] 1.2.840.114 [id number] Univers 00:00:00 00:00:00 Nereida HEALTH 350.1.13.10 it y of [place] 4.2.7.2.686 Frankie as JAVIER?BLEA [phone] [place] mary MARINO[address] OFFICE [facility] 2022-07-19 2022-07-19 [facility] 1.2.840.114 [id number] Univers 00:00:00 00:00:00 Nereida HEALTH 350.1.13.10 it y of [place] 4.2.7.2.686 Frankie as JAVIER?BLEA [phone] [facility] MARINO[address] OFFICE [facility] 2022-07-09 2022-07-09 [facility] 1.2.840.114 [id number] Univers 00:00:00 00:00:00 [facility] 350.13.10 it y of [place] 4.2.7.2.686 Frankie as JAVIER?BLEA [phone] [address] 2022-07-08 2022-07-08 Outside [place] Rodger [facility] [id number] 00:00[facility]00 00:00:00 Orders [facility] 2022-07-08 2022-07-08 Outside [place] [facility] [id number] 00:00:00 00:00:00 Orders [facility] 2022-07-04 2022-07-04 [facility] 1.2.840.114 [id number] Univers 00:00:00 00:00:00 Milfay HEALTH 350.1.13.10 it y of [place] 4.2.7.2.686 Frankie as JAVIER?BLEA [id number] [address] OFFICE [facility] 2022-06-30 2022-06-30 [facility] 1.2.840.114 [id number] Univers 00:00:00 00:00:00 Nereida HEALTH 350.1.13.10 it y of [place] 4.2.7.2.686 Fraknie as JAVIER?BLEA [id number] [address] 2022-06-23 2022-06-23 Outpatient Leona [facility] [id number] Univers 09:00:00 09:00:00 GERMAINCESAR pierre [facility] 2022-06-21 2022-06-21 [facility] 1.2.840.114 [id number] Univers 00:00:00 00:00:00 Nereida HEALTH 350.1.13.10 it y of [place] 4.2.7.2.686 Frankie as JAVIER?BLEA [id number] [address] 2022-06-17 2022-06-17 Outpatient [facility] [id number] Univers 10:00:00 10:00:00 NEREIDA pierre [facility] 2022-06-08 2022-06-08 [facility] 1.2.840.114 [id number] Univers 00:00:00 00:00:00 Nereida HEALTH 350.1.13.10 it y of [place] 4.2.7.2.686 Frankie as JAVIER?BLEA [phone] [address] 2022-06-08 2022-06-08 [facility] 1.2.840.114 [id number] Univers 00:00:00 00:00:00 Nereida HEALTH 350.1.13.10 it y of [place] 4.2.7.2.686 Frankie as JAVIER?BLEA [id number] [address] 2022-06-03 2022-06-03 [facility] 1.2.840.114 [id number] Univers 00:00:00 00:00:00 Nereida HEALTH 350.1.13.10 it y of [place] 4.2.7.2.686 Frankie as JAVIER?BLEA [phone] [address] 2022-06-03 2022-06-03 [facility] 1.2.840.114 [id number] 74 Univers 00:00:00 00:00:00 Nereida HEALTH 350.1.13.10 it y of [place] 4.2.7.2.686 Frankie as JAVIER?BLEA [id number] [address] OFFICE [facility] 2022-05-17 2022-05-17 [facility] 1.2.840.114 [id number] Univers 00:00:00 00:00:00 Milfay HEALTH 350.1.13.10 it y of [place] 4.2.7.2.686 Frankie as JAVIER?BLEA [phone] [address] OFFICE [facility] 2022-05-11 2022-05-11 [facility] 1.2.840.114 [id number] 92 Univers 00:00:00 00:00:00 Milfay HEALTH 350.1.13.10 it y of [place] 4.2.7.2.686 Frankie as JAVIER?BLEA [id number] [address] OFFICE [facility] 2022-04-08 2022-04-08 Outpatient Aguilar_M VFP VFP [id number] [place] [address] 00:00:00 00:00:00 [id number] Family Practic e 2022-04-08 2022-04-08 Refmaddie [facility] 1.2.840.114 [id number] Univers 00:00:00 00:00:00 [facility] 350.1.13.10 it y of [place] 4.2.7.2.686 Frankie as JAVIER?BLEA [phone] [address] OFFICE [facility] 2022-03-31 2022-03-31 [facility] 1.2.840.114 [id number] Univers 00:00:00 00:00:00 [facility] 350.1.13.10 it y of [place] 4.2.7.2.686 Frankie as JAVIER?BLEA [phone] [address] OFFICE [facility] 2022-03-18 2022-03-18 Outpatient Leona [facility] [id number] Univers 09:30:00 09:45:06 NEREIDA hernandez [facility] 2022-03-18 2022-03-18 Office Jaziel [facility] 1.2.840.114 [id number] Univers 09:30:00 09:45:[address] [facility] 350.1.13.10 it y of [place] 4.2.7.2.686 Frankie as JAVIER?BLEA [phone] [address] OFFICE [facility] 2022-03-18 2022-03-18 Outpatient R [facility] [id number] Univers 09:30:00 09:30:00 NEREIDA ity [facility] 2022 2022 Refmaddie [facility] 1.2.840.114 [id number] Univers 00:00:00 00:00:00 [facility] 350.1.13.10 it y of [place] 4.2.7.2.686 Frankie as JAVIER?BLEA [id number] [address] 2022-03-13 2022-03-13 [facility] 1.2.840.114 [id number] 69 Univers 00:00:00 00:00:00 Milfay HEALTH 350.1.13.10 it y of [place] 4.2.7.2.686 Frankie as JAVIER?BLEA [phone] [address] 2022-03-11 2022-03-11 [facility] 1.2.840.114 [id number] Univers 00:00:00 00:00:00 Milfay HEALTH 350.1.13.10 it y of [place] 4.2.7.2.686 Frankie as JAVIER?BLEA [id number] [address] OFFICE [facility] 2022-03-09 2022-03-09 [facility] 1.2.840.114 [id number] 96 Univers 00:00:00 00:00:00 Nereida HEALTH 350.1.13.10 it y of [place] 4.2.7.2.686 Frankie as JAVIER?BLEA [id number] [address] 2022-03-05 2022-03-05 [facility] 1.2.840.114 [id number] 96 Univers 00:00:00 00:00:00 Nereida HEALTH 350.1.13.10 it y of [place] 4.2.7.2.686 Frankie as JAVIER?BLEA [phone] [place] mary GOEL [address] [place] [address] OFFICE [facility] 2022-03-02 2022-03-02 [facility] 1.2.840.114 [id number] Univers 00:00:00 00:00:00 Nereida HEALTH 350.1.13.10 it y of [place] 4.2.7.2.686 Frankie as JAVIER?BLEA [phone] [place] mary GOEL [address] [place] [address] OFFICE [facility] 2022-03-02 2022-03-02 [facility] 1.2.840.114 [id number] 70 Univers 00:00:00 00:00:00 Nereida HEALTH 350.1.13.10 it y of [place] 4.2.7.2.686 Frankie as JAVIER?BLEA [phone] [place] mary GOEL [address] [place] [address] OFFICE [facility] 2022-02-05 2022-02-05 [facility] 1.2.122.802 [id number] Univers 00:00:00 00:00:00 NereidaFormerly [facility] 350.1.13.10 it y of [place] 4.2.7.2.686 Frankie as JAVIER?BLEA [phone] [place] mary GOEL [address] [place] [address] OFFICE [facility] 2022-01-30 2022-01-30 [facility] 1.2.840.114 [id number] Univers 00:00:00 00:00:00 Nereida HEALTH 350.1.13.10 it y of [place] 4.2.7.2.686 Frankie as PROFESSIO [phone] [place] mary [address] OFFICE [facility] ONE 2022-01-25 2022-01-25 Emergency X [facility] ERT [id number] Univers 12:57:00 16:23:00 JACQUELIN pierre [facility] 2022-01-25 2022-01-25 Emergency [facility] 1.2.731.353 [id number] Univers 12:57:00 16:23:00 Jacquelin Alvarado [place] 350.1.13.10 ity of [place] 4.2.7.2.686 [place] [facility] [phone] [place] [id number] [place] 2022-01-22 2022-01-22 Outpatient Aguipeterson_M VFP VFP [id number] [place] 08:43:00 08:43:00 [id number] Family Practic e 2022-01-14 2022-01-14 Rohith Sheriff [facility] 1.2.840.114 [id number] Univers 00:00:00 00:00:00 [facility] 350.1.13.10 y [facility] 4.2.7.2.686 Frankie as CHELSEAIO [phone] Ky dical NAL [address] OFFICE BUILDING ONE 2022-01-09 2022-01-09 Hospital [facility] [id number] 07:39:00 14:08:00 Encounter [facility] 2022-01-09 2022-01-09 Outpatient [facility] Surgery [id number] [facility] 07:39:00 14:08:00 DEWAYNE 2022-01-09 2022-01-09 Anesthesia Adam Sierra [facility] [id number] 11:08:00 12:56:00 Event India Keating [facility] 2022-01-09 2022-01-09 Surgery [facility] [id number] 11:30:00 12:50:00 [facility] 2022-01-09 2022-01-09 Travel [facility] [id number] [facility] 00:[facility]00 00:00:00 [facility] 2022-01-08 2022-01-08 Outpatient [facility] SLE [id number] [facility] 12:18:15 23:59:00 2022-01-08 2022-01-08 [facility] [id number] 11:55:00 23:59:00 Encounter [facility] 2022-01-08 2022-01-08 Travel [facility] [id number] [facility] 00:00:00 00:00:00 [facility] 2021-12-18 2021-12-18 Office [facility] 1.2.840.114 [id number] Univers 15:45:00 16:15:00 Visit [facility] 350.1.13.10 it y of [place] 4.2.7.2.686 Frankie as JAVIER?BLEA [phone] Ky mary GOEL [address] MEDICAL OFFICE BUILDING 2021-12-18 2021-12-18 Outpatient [facility] [id number] Univers 15:45:00 15:45:00 [facility] 2021-12-18 2021-12-18 Outpatient Leona [facility] [id number] Univers 15:45:00 15:45:00 [facility] 2021-12-16 2021-12-16 Outpatient Leona [facility] [id number] Univers 16:00:00 16:00:00 [facility] 2021-12-16 2021-12-16 Orders Doctor OLGA 1.2.840.114 [id number] Univers 00:00:00 00:00:00 Only Unassigned, STEVE 350.1.13.10 ity of [place] [facility] 4.2.7.2.686 Frankie as [phone] [address] 2021-12-15 2021-12-15 [facility] 1.2.840.114 [id number] Univers 00:00:00 00:00:00 [facility] 350.1.13.10 it y of [place] 4.2.7.2.686 Frankie as PROFESSIO [phone] Ky mausd YOVANI [address] OFFICE BUILDING ONE 2021-12-08 2021-12-08 Refmaddie [facility] 1.2.840.114 [id number] Univers 00:00:00 00:00:00 Nereida HEALTH 350.1.13.10 it y of [place] 4.2.7.2.686 Frankie as JAVIER?BLEA [phone] Ky mary GOEL [address] MEDICAL OFFICE BUILDING 2021-12-04 2021-12-04 [facility] [id number] [facility] 08:54:00 10:51:00 Encounter [facility] 2021-12-04 2021-12-04 Outpatient EL MASON, SLE Surgery [id number] SLE 08:54:00 10:51:00 [facility] 2021-12-04 2021-12-04 Surgery [facility] [id number] [facility] 09:00:00 10:30:00 [facility] 2021-11-19 2021-11-19 [facility] 1.2.662.436 [id number] Univers 00:00:00 00:00:00 Nereida HEALTH 350.1.13.10 it y of [place] 4.2.7.2.686 Frankie as JAVIER?BLEA [phone] [address] OFFICE [facility] 2021-11-15 2021-11-15 Rohith Sheriff [facility] 1.2.840.114 [id number] Univers 00:00:00 00:00:00 [facility] 350.1.13.10 it y of [place] 4.2.7.2.686 Frankie as PROFESSIO [id number] [address] ONE 2021-11-06 2021-11-06 [facility]ith [facility] 1.2.840.114 [id number] Univers 00:00:00 00:00:00 [facility] 350.1.13.10 it y of [place] 4.2.7.2.686 Frankie as JAVIER?BLEA [id number] [address] 2021-11-01 2021-11-01 Outpatient Aguilar_M VFP VFP [id number] [facility] 02:58:00 02:58:00 [id number] Family Practic e 2021-10-27 2021-10-27 [facility] 1.2.840.114 [id number] Univers 00:00:00 00:00:00 [facility] 350.1.13.10 it y of [place] 4.2.7.2.686 Frankie as PROFESSIO [phone] [address] 2021-10-16 2021-10-16 Refmaddie [facility] 1.2.840.114 [id number] Univers 00:00:00 00:00:00 [facility] 350.1.13.10 it y of [place] 4.2.7.2.686 Frankie as PROFESSIO [phone] Me dical NAL 044 [facility] 2021-10-11 2021-10-11 Outpatient Aguilar_M VFP VFP [id number] [facility] 06:17:00 06:17:00 [id number] Family Practic e 2021-10-07 2021-10-07 Refmaddie [facility] 1.2.840.114 [id number] Univers 00:00:00 00:00:00 [facility] 350..13.10 it [facility] 4.2.7.2.686 Frankie as JAVIER?BLEA [phone] [place] mau[address] 2021-10-03 2021-10-03 Outpatient Aguilar_M VFP VFP [id number] [facility] 05:34:00 05:34:00 [id number] Family Practic e 2021-09-29 2021-09-29 Refmaddie [facility] 1.2.881.030 [id number] Univers 00:00:00 00:00:00 [facility] 350.1.13.10 it y of [place] 4.2.7.2.686 Frankie as SPECIALTI [phone] Ky dical [address] [facility] 2021-09-18 2021-09-18 Outpatient Leona [facility] [id number] Univers 10:15:00 10:15:00 NEREIDA pierre [facility] 2021-09-18 2021-09-18 Office [facility] 1.2.840.114 [id number] Univers 08:40:07 08:55:[address] [facility] 350.1.13.10 it y [facility] 4.2.7.2.686 Frankie as JAVIER?BLEA [phone] Ky mau[address] 2021-09-18 2021-09-18 Outpatient R [facility] [id number] Univers 10:15:00 08:52:38 NEREIDA ithenri [facility] 2021-09-08 2021-09-08 Rohith [facility] 1.2.840.114 [id number] Univers 00:00:00 00:00:00 [facility] 350.1.13.10 it y of [place] 4.2.7.2.686 Frankie as JAVIER?BLEA [phone] [facility] JAMILA[address] OFFICE [facility] 2021-09-04 2021-09-04 Rohith [facility] 1.2.840.114 [id number] Univers 00:00:00 00:00:00 Nereida HEALTH 350.1.13.10 it y of [place] 4.2.7.2.686 Frankie as PROFESSIO [phone] [address] OFFICE [facility] ONE 2021-08-28 2021-08-28 Rohith [facility] 1.2.840.114 [id number] Univers 00:00:00 00:00:00 [facility] 350.1.13.10 it y of [place] 4.2.7.2.686 Frankie as PROFESSIO [phone] [address] ONE 2021-08-22 2021-08-22 Rohith [facility] 1.2.840.114 [id number] 73 Univers 00:00:00 00:00:00 [facility] 350.1.13.10 it y of [place] 4.2.7.2.686 Frankie as Professio [phone] [address] One 2021-08-21 2021-08-21 Yousuf Hwang [facility] [place] - [id number] [facility] 00:00:00 00:00:00 [facility] [id number] Family [facility] - Pract brando GRIFFIN: [address] [place] [address] , Ph. 2021-08-20 2021-08-20 Outpatient Lm_Leona [facility] [id number] 45-20 [facility] 04:30:00 04:30:00 [id number] Family Practic e 2021-08-20 2021-08-20 Telephone Jaziel [facility] 1.2.100.334 [id number] Univers 00:00:00 00:00:00 [facility] 350.1.13.10 it y of [place] 4.2.7.2.686 Frankie as Javier?Blea [phone] [address] 2021-08-07 2021-08-07 [facility] 1.2.840.114 [id number] Univers 00:00:00 00:00:00 [facility] 350.1.13.10 it y of [place] 4.2.7.2.686 Frankie as Javier?Blea [phone] [address] 2021-07-14 2021-07-14 Rohith [facility] 1.2.840.114 [id number] Univers 00:00:00 00:00:00 [facility] 350.1.13.10 it y of [place] 4.2.7.2.686 Frankie as Javier?Blea [phone] [address] 2021-07-11 2021-07-11 Imm/Inj Nurse, Adc Pob Immunization [facility] 1.2.840.114 [id number] Univers 10:44:02 10:44:14 Visit Miguel Patel 350.1.13 .10 ity of [place] 4.2.7.2.686 [place] Professio [phone] [address] 2021-07-11 2021-07-11 Outpatient R [facility] [id number] Univers 10:30:00 10:30:00 MIGUEL pierre [facility] 2021-07-10 2021-07-10 Rohith [facility] 1.2.840.114 [id number] Univers 00:00:00 00:00:00 [facility] 350.1.13.10 it y of [place] 4.2.7.2.686 Frankie as Javier?Blea [phone] [address] Office Building 2021-06-29 2021-06-29 Rohith [facility] 1.2.840.114 [id number] 70 Univers 00:00:00 00:00:00 [facility] 350.1.13.10 it y of [place] 4.2.7.2.686 Frankie as Professio [phone] [address] Office Building One 2021-06-24 2021-06-24 Rohith [facility] 1.2.840.114 [id number] Univers 00:00:00 00:00:00 [facility] 350.1.13.10 it y of [place] 4.2.7.2.686 Frankie as Professio [phone] [place] mary giles [address] [place] [address] Office Building One 2021-06-10 2021-06-10 Rohith [facility] 1.2.840.114 [id number] Univers 00:00:00 00:00:00 [facility] 350.1.13.10 it y of [place] 4.2.7.2.686 Frankie as Professio [phone] [place] mary giles [address] [place] [address] Office Building One 2021-06-09 2021-06-09 [facility]ith [facility] 1.2.840.114 [id number] Univers 00:00:00 00:00:00 [facility] 350.1.13.10 it y of [place] 4.2.7.2.686 Frankie [address] Professio [phone] [facility] yovani [address] [place] [address] Office Building One 2021-06-09 2021-06-09 Rohith [facility] 1.2.840.114 [id number] 44 Univers 00:00:00 00:00:00 [facility] 350.1.13.10 it y of [place] 4.2.7.2.686 Frankie as Professio [id number] [place] dic[address] Office Building One 2021-06-01 2021-06-01 Rohith [facility] 1.2.840.114 [id number] 21 Univers 00:00:00 00:00:00 [facility] 350.1.13.10 it y of [place] 4.2.7.2.686 Frankie as Professio [phone] [place] dical nal [address] [place] [address] Office [facility] One 2021-05-15 2021-05-15 Patient Nabil [facility] 1.2.840.114 [id number] Univers 00:00:00 00:00:00 Outreach Jaimee Alejandre [employer] 350.1.13.10 i ty of [place] 4.2.7.2.686 Frankie [address]io [phone] [facility] nal [address] [place] [address] Office [facility] One 2021-05-14 2021-05-14 Nurse Cbc, Medicare Wellness [facility] B 1.2.840.114 [id number] Univers 09:04:42 10:32:18 Visit Jaziel Nereida [facility] 350.1.13.10 ity of [place] 4.2.7.2.686 Frankie as Professio [phone] Ky dical nal [address] [place] [address] Office [facility] One 2021-05-14 2021-05-14 Office [facility] 1.2.840.114 [id number] Univers 08:58:25 09:13:25 [facility] 350.1.13.10 it y of [place] 4.2.7.2.686 Frankie as Professio [phone] [address] Office [facility] One 2021-05-14 2021-05-14 Outpatient Leona [facility] [id number] Univers 09:00:00 09:00:00 NEREIDA pierre [facility] 2021-05-12 2021-05-12 Refill Jaziel [facility] 1.2.840.114 [id number] Univers 00:00:00 00:00:00 [facility] 350.1.13.10 it y of [place] 4.2.7.2.686 Frankie as Professio [phone] [address] Office [facility] One 2021-04-30 2021-04-30 Outpatient Leona [facility] [id number] Univers 13:15:00 13:15:00 DUSTIN pierre [facility] 2021-04-23 2021-04-23 Outpatient Leona [facility] [id number] Univers 00:00:00 00:00:00 NEREIDA pierre [facility] 2021-04-14 2021-04-14 [facility] 1.2.840.114 [id number] Univers 00:00:00 00:00:00 [facility] 350.1.13.10 it y of [place] 4.2.7.2.686 Frankie as Professio [phone] [address] Office Building One 2021-04-03 2021-04-03 Hammad Chaney 1.2.840.114 [id number] Univers 00:00:00 00:00:00 Management , Mary Draper 350.1.13.10 ity of [place] 4.2.7.2.686 [place] [phone] [address] 2021-03-26 2021-03-26 [facility] 1.2.840.114 [id number] 00:00:00 00:00:00 [facility] 350.1.13.10 [place] 4.2.7.2.686 Professio [phone] [place] [address] Office Building One 2021-03-26 2021-03-26 Rohith [facility] 1.2.840.114 [id number] Univers 00:00:00 00:00:00 [facility] 350.1.13.10 it y of [place] 4.2.7.2.686 Frankie as Professio [phone] [address] Office Building One 2021-03-25 2021-03-25 Rohith [facility] 1.2.840.114 [id number] 00:00:00 00:00:00 [facility] 350.1.13.10 [place] 4.2.7.2.686 Professio [phone] nal [facility] Office Building One 2021-03-25 2021-03-25 Rohith [facility] 1.2.840.114 [id number] 96 [facility] 00:00:00 00:00:00 [facility] 350.1.13.10 it y of [place] 4.2.7.2.686 Frankie [address] Professio [phone] [facility] nal [address] [place] [address] Office Building One 2021-03-18 2021-03-18 Gala [facility] 1.2.218.537 [id number] 00:00:00 00:00:00 Nereida Lee 350.1.13.10 [place] 4.2.7.2.686 Professio [phone] [address] 2021-03-18 2021-03-18 Gala [facility] 1.2.033.365 [id number] Univers 00:00:00 00:00:00 Nereida Clara 350.1.13.10 i ty of [place] 4.2.7.2.686 [place] Professio [phone] [address] 2021-03-13 2021-03-13 Gala [facility] 1.2.919.024 [id number] 00:00:00 00:00:00 Nereida [facility] 350.1.13.10 [place] 4.2.7.2.686 Professio [phone] [place] [address] Office [facility] One 2021-03-13 2021-03-13 Gala [facility] 1.2.932.047 [id number] Univers 00:00:00 00:00:00 Nereida [facility] 350.1.13.10 it y of [place] 4.2.7.2.686 Frankie as Professio [phone] [address] One 2021-03-10 2021-03-10 Outpatient R [facility] [id number] Univers 12:00:00 12:00:00 AMANDA pierre [facility] 2021-03-10 2021-03-10 Urgent Provider, [facility] 1.2.840.114 [id number] Univers 11:16:36 11:36:36 Amanda Montes De Oca [id number] ity of [place] [id number] Frankie as Professio [phone] [address] Office [facility] 2021-03-10 2021-03-10 Refmaddie Sheriff [facility] 1.2.840.114 [id number] Univers 00:00:00 00:00:00 [facility] [id number] it y of [place] [id number] Frankie as Professio [phone] [address] Office Building One 2021-02-25 2021-02-25 Telephone [facility] [id number] Univers 00:00:00 00:00:00 [facility] [id number] it y of [place] [id number] Frankie as Professio [phone] [address] Office [facility] 2021-02-20 2021-02-20 Ref[facility] 1.2.840.114 [id number] Univers 00:00:00 00:00:00 [facility] [id number] it y of [place] [id number] Frankie as Professio [phone] [address] One 2021-02-12 2021-02-12 Office [facility] 1.2.840.114 [id number] Univers 09:00:39 09:22:35 Visit [facility] [id number] it y of [place] [id number] Frankie as Professio [phone] [address] Office [facility] 2021-02-12 2021-02-12 [facility] [id number] Univers 09:00:00 09:00:00 NEREIDA ity of [facility] 2021-02-12 2021-02-12 Orders Doctor OLGA 1.2.840.114 [id number] Univers 00:00:00 00:00:00 Only Unassigned, STEVE 350.1.13.10 ity of [place] [facility] [id number] Frankie as [phone] [address] 2021-02-10 2021-02-10 [facility] 1.2.840.114 [id number] Univers 00:00:00 00:00:00 [facility] [id number] it y of [place] [id number] Frankie as Professio [phone] [address] One 2021-01-06 2021-01-06 Telephone [facility] [id number] [id number] Univers 00:00:00 00:00:00 [facility] 350.1.13.10 it y of [place] [id number] Frankie as Professio [phone] [address] One 2021-01-06 2021-01-06 Telephone [facility] [facility] 1.2.930.307 [id number] Univers 00:00:00 00:00:00 [facility] 350.1.13.10 it y of [place] 4.2.7.2.686 Frankie as Professio [phone] [address] One 2021-01-01 2021-01-01 Outpatient [facility] [id number] Univers 15:20:00 15:20:[address] [facility] 2020-12-31 2020-12-31 Outpatient R [facility] [id number] Univers 15:50:00 15:50:[address] [facility] 2020-12-12 2020-12-12 [facility]addie [facility] 1.2.840.114 [id number] Univers 00:00:00 00:00:00 [facility] 350.1.13.10 it y of [place] 4.2.7.2.686 Frankie as Professio [phone] [address] One 2020-12-11 2020-12-11 [facility] 1.2.840.114 [id number] Univers 00:00:00 00:00:00 [facility] 350.1.13.10 it y of [place] 4.2.7.2.686 Frankie as Professio [phone] [address] One 2020-12-03 2020-12-03 Outpatient R [facility] [id number] Univers 15:50:00 15:50:[address] [facility] 2020-11-13 2020-11-13 Office [facility] 1.2.840.114 [id number] Univers 08:46:00 09:20:33 Visit [facility] 350.1.13.10 it y of [place] 4.2.7.2.686 Frankie as Professio [phone] [address] One 2020-11-13 2020-11-13 [facility] [id number] Univers 09:00:00 09:00:00 NEREIDA johnhenri [facility] 2020-11-11 2020-11-11 Refill [facility] 1.2.840.114 [id number] Univers 00:00:00 00:00:00 Nereida [place] 350.1.13.10 i ty [place] [phone] [address] 2020-10-10 2020-10-10 Telephone [facility] 1.2.454.422 [id number] Univers 00:00:00 00:00:00 [facility] 350.1.13.10 it y of [place] 4.2.7.2.686 Frankie as Professio [phone] [address] One 2020-10-10 2020-10-10 Letter [facility] 1.2.840.114 [id number] Univers 00:00:00 00:00:00 (Out) [facility] 350.1.13.10 it y of [place] 4.2.7.2.686 Frankie as Professio [phone] [address] Office [facility] One 2020-10-10 2020-10-10 Refill [facility] 1.2.840.114 [id number] Univers 00:00:00 00:00:00 [facility] 350.1.13.10 it y of [place] 4.2.7.2.686 Frankie as Professio [phone] [address] Office [facility] One 2020-10-09 2020-10-09 Refmaddie [facility] 1.2.840.114 [id number] Univers 00:00:00 00:00:00 [facility] 350.1.13.10 it y of [place] 4.2.7.2.686 Frankie as Professio [phone] [place] dical [place] 044 [facility] 2020-10-08 2020-10-08 Refmaddie [facility] 1.2.840.114 [id number] Univers 00:00:00 00:00:00 [facility] 350.1.13.10 it y of [place] 4.2.7.2.686 Frankie as Professio [phone] [place] dical [place] 044 [place] Office [facility] One 2020-10-04 2020-10-04 [facility] [id number] Univers 11:15:00 11:15:[address] [facility] 2020-10-04 2020-10-04 Office [facility] 1.2.020.133 [id number] Univers 09:57:57 10:50:32 Visit [facility] 350.1.13.10 it y of Surgical 4.2.7.2.686 Frankie as Specialti [phone] [place] dical es 198 [facility] 2020-09-11 2020-09-11 [facility] 1.2.840.114 [id number] Univers 00:00:00 00:00:00 [facility] 350.1.13.10 it y of [place] 4.2.7.2.686 Frankie as Professio [phone] [place] dical [place] 044 [facility] 2020-09-02 2020-09-02 Refmaddie [facility] 1.2.840.114 [id number] Univers 00:00:00 00:00:00 [facility] 350.1.13.10 it y of [place] 4.2.7.2.686 Frankie as Professio [phone] [place] dical [place] 044 [facility] 2020-08-26 2020-08-26 Outpatient R [facility] [id number] Univers 13:30:00 13:30:[address] [facility] 2020-08-15 2020-08-15 Office [facility] 1.2.840.114 [id number] Univers 09:59:04 10:14:04 Visit [facility] 350.1.13.10 it y of Surgical 4.2.7.2.686 [place] as Specialti [phone] [place] dical [place] 198 [facility] 2020-08-15 2020-08-15 Outpatient R [facility] [id number] Univers 10:00:00 10:00:00 GERMAIN pierre [facility] 2020-08-13 2020-08-13 Telephone [facility] 1.2.840.114 [id number] Univers 00:00:00 00:00:00 Luan Alejandre [facility] 350.1.13.10 it y of Surgical 4.2.7.2.686 [place] as Specialti [phone] [place] dical [place] 198 [facility] 2020-08-12 2020-08-12 Office [facility] 1.2.840.114 [id number] Univers 09:06:31 09:21:31 Visit Nereida [facility] 350.1.13.10 it y of [place] 4.2.7.2.686 Frankie as Professio [phone] [place] dical [place] 044 [place] Office [facility] One 2020-08-12 2020-08-12 Outpatient [facility] [id number] Univers 09:00:00 09:00:00 NEREIDA pierre [facility] 2020-08-08 2020-08-08 Office [facility] 1.2.275.814 [id number] Univers 14:52:25 15:06:19 Visit Luan Alejandre [facility] 350.1.13.10 it y of Surgical 4.2.7.2.686 [place]ie as Specialti [phone] [place] dical [place] 198 [facility] 2020-08-08 2020-08-08 Outpatient [facility] [id number] Univers 15:00:00 15:00:00 LUAN pierre [facility] 2020-08-05 2020-08-05 [facility] 1.2.832.104 [id number] Univers 15:02:00 17:02:00 Brigida Lee 350.1.13.10 i ty of [place] [phone] [facility] 084 [place] 2020-08-05 2020-08-05 Orders Doctor OLGA 1.2.840.114 [id number] Univers 00:00:00 00:00:00 Only Unassigned, STEVE 350.1.13.10 ity of [place] [facility] 4.2.7.2.686 Frankie as [phone] [address] 2020-08-01 2020-08-01 Office [facility] 1.2.141.856 [id number] Univers 14:43:38 16:10:03 Visit Almita [place] 350.1.13.10 i ty of [place] [phone] [place] dical [place] 188 [facility] 2020-08-01 2020-08-01 Outpatient [facility] [id number] Univers 14:30:00 14:30:00 ALMITA pierre [facility] 2020-07-29 2020-07-29 [facility] 1.2.840.114 [id number] Univers 00:00:00 00:00:00 NereidaJamplify 350.1.13.10 it y of [place] 4.2.7.2.686 Frankie as Professio [phone] [facility] 044 [place] Office [facility] 2020-07-23 2020-07-23 Outpatient R [facility] [id number] Univers 14:15:00 14:15:00 ALMITA pierre [facility] 2020-07-23 2020-07-23 Refmaddie SheriffG[facility] 1.2.840.114 [id number] Univers 00:00:00 00:00:00 NereidaJamplify 350.1.13.10 it y of [place] 4.2.7.2.686 Frankie as Professio [phone] [place] dicsd nal 044 [place] Office [facility] 2020-07-22 2020-07-22 Outpatient [facility] [id number] Univers 10:00:00 10:00:00 KEN pierre [facility] 2020-07-15 2020-07-15 Rohith YoungersGILA [facility] 1.2.840.114 [id number] Univers 00:00:00 00:00:00 Nereida [employer] 350.1.13.10 it y of [place] 4.2.7.2.686 Frankie as Professio [phone] [address] Office [facility] 2020-06-26 2020-06-26 [facility] 1.2.840.114 [id number] Univers 00:00:00 00:00:00 [facility] 350.1.13.10 it y of [place] 4.2.7.2.686 Frankie as Professio [phone] [address] Office [facility] 2020-06-25 2020-06-25 Outpatient [facility] [id number] Univers 13:30:00 13:30:00 WENTONG ity [facility] 2020-06-12 2020-06-12 Refmaddie [facility] 1.2.840.114 [id number] Univers 00:00:00 00:00:00 [facility] 350.1.13.10 it y of [place] 4.2.7.2.686 Frankie as Professio [phone] [address] Office [facility] 2020-06-12 2020-06-12 Telephone [facility] 1.2.615.079 [id number] Univers 00:00:00 00:00:00 [facility] 350.1.13.10 it y of [place] 4.2.7.2.686 Frankie as Professio [phone] [address] Office [facility] 2020-06-11 2020-06-11 Rohith [facility] 1.2.840.114 [id number] Univers 00:00:00 00:00:00 [facility] 350.1.13.10 it y of [place] 4.2.7.2.686 Frankie as Professio [phone] [address] Office [facility] 2020-06-05 2020-06-05 [facility] 1.2.840.114 [id number] Univers 00:00:00 00:00:00 [facility] 350.1.13.10 it y of [place] 4.2.7.2.686 Frankie as Professio [phone] [address] Office [facility] 2020-05-28 2020-05-28 Telephone [facility] 1.2.388.296 [id number] Univers 00:00:00 00:00:00 Nereida Lee 350.1.13.10 i ty [place] [phone] [facility] 044 [facility] 2020-05-13 2020-05-13 Shift Engineer Royal, [facility] Lab Main [facility] 1.2.8 40.114 [id number] Univers 14:52:09 15:07:09 Visit Nereida Sheriff 350.1.13.10 ity of [place].2.[place] [phone] [facility] 353 [facility] 2020-05-13 2020-05-13 Outpatient [facility] [id number] Univers 14:30:00 14:30:00 NEREIDA johnhenri [facility] 2020-05-13 2020-05-13 Office [facility] 1.2.840.114 [id number] Univers 13:57:32 14:12:32 Visit Nereida Lee 350.1.13.10 i ty of [place] 4.2.7.2.686 [place] [phone] [address] 2020-05-09 2020-05-09 Refmaddie SheriffG[facility] 1.2.840.114 [id number] Univers 00:00:00 00:00:00 [facility] 350.1.13.10 it y of [place] 4.2.7.2.686 Frankie as Professio [phone] [address] 2020-04-10 2020-04-10 Refill [facility] 1.2.840.114 [id number] Univers 00:00:00 00:00:00 [facility] 350.1.13.10 it y of [place] 4.2.7.2.686 Frankie as Professio [phone] [address] 2020-03-13 2020-03-13 Telephone [facility] 1.2.375.571 [id number] Univers 00:00:00 00:00:00 Nereida Lee 350.1.13.10 i ty of [place].2.[place] [phone] [facility] 044 [facility] 2020-03-11 2020-03-11 Refmaddie [facility] 1.2.840.114 [id number] Univers 00:00:00 00:00:00 Nereida [facility] 350.1.13.10 it y of [place] 4.2.7.2.686 Franike as Professio [phone] [facility] 044 [facility] One 2020-02-20 2020-02-20 Telemedici [facility] 1.2.840.114 [id number] Univers 08:07:16 16:58:17 ne Visit Travis Lee 350.1.13.10 ity of [place] 4[place]2.7.2.[place] [phone] [facility] 220 [facility] 2020-02-20 2020-02-20 Outpatient R [facility] [id number] Univers 15:00:00 15:00:00 TRAVIS henri [facility] 2020-02-15 2020-02-15 Outpatient [facility] [id number] Univers 07:30:00 07:30:00 NEREIDA pierre [facility] 2020-02-15 2020-02-15 Telemedici [facility] 1.2.840.114 [id number] Univers 06:51:18 07:06:18 ne Visit Nereida Lee 350.1.13.10 ity of [place].2.[place] [phone] [address] 2020-02-14 2020-02-14 Outpatient [facility] [id number] Univers 07:00:00 07:00:00 NEREIDA pierre [facility] 2020-02-12 2020-02-12 Refmaddie [facility] 1.2.840.114 [id number] Univers 00:00:00 00:00:00 Nereida [facility] 350.1.13.10 it y of [place] 4.2.7.2.686 Frankie as Professio [phone] [address] Office Building One 2020-01-11 2020-01-11 Refmaddie [facility] 1.2.840.114 [id number] Univers 00:00:00 00:00:00 [facility] 350.1.13.10 it y of [place] 4.2.7.2.686 Frankie as Professio [phone] [address] Office Building One 2019-12-28 2019-12-28 Office [facility] 1.2.840.114 [id number] Univers 09:22:44 09:56:04 Visit [facility] 350.1.13.10 it y of [place] 4.2.7.2.686 Frankie as Professio [phone] [address] Office [facility] 2019-12-28 2019-12-28 Outpatient [facility] [id number] Univers 09:30:00 09:30:00 NEREIDA lopezy [facility] 2019-12-14 2019-12-14 Refmaddie [facility] 1.2.840.114 [id number] Univers 00:00:00 00:00:00 [facility] 350.1.13.10 it y of [place] 4.2.7.2.686 Frankie as Professio [phone] [address] Office [facility] 2019-12-11 2019-12-11 Telephone [facility] 1.2.358.044 [id number] Univers 00:00:00 00:00:00 [facility] 350.1.13.10 it y of [place] 4.2.7.2.686 Frankie as Professio [phone] [address] Office Building One 2019-12-02 2019-12-02 [facility] 1.2.840.114 [id number] Univers 00:00:00 00:00:00 [facility] 350.1.13.10 it y of [place] 4.2.7.2.686 Frankie as Professio [phone] [address] Office Building One 2019-11-15 2019-11-15 Office [facility] 1.2.840.114 [id number] Univers 06:58:39 07:13:39 Visit [facility] 350.1.13.10 it y of [place] 4.2.7.2.686 Frankie as Professio [phone] [address] Office Building One 2019-10-27 2019-10-27 Outpatient R [facility] [id number] Univers 09:55:58 23:59:00 ZACARIAS ity of [facility] 2019-07-20 2019-07-20 Refmaddie [facility] 1.2.840.114 [id number] Univers 00:00:00 00:00:00 [facility] 350.1.13.10 it y of [place] 4.2.7.2.686 Frankie as Professio [phone] [address] Office [facility] 2019-07-04 2019-07-04 Refmaddie [facility] 1.2.840.114 [id number] Univers 00:00:00 00:00:00 [facility] 350.1.13.10 it y of [place] 4.2.7.2.686 Frankie as Professio [phone] [address] Office Building One 2019-06-28 2019-06-28 Office [facility] 1.2.840.114 [id number] [facility] 09:34:17 10:06:56 Visit [facility] 350.1.13.10 it y of [place] 4.2.7.2.686 Frankie as Professio [phone] [address] Office [facility] 2019-06-28 2019-06-28 Refmaddie [facility] 1.2.840.114 [id number] Univers 00:00:00 00:00:00 [facility] 350.1.13.10 it y of [place] 4.2.7.2.686 Frankie as Professio [phone] [address] Office Building One 2019-06-21 2019-06-21 Refmaddie [facility] 1.2.840.114 [id number] Univers 00:00:00 00:00:00 [facility] 350.1.13.10 it y of [place] 4.2.7.2.686 Frankie as Professio [phone] [place] dical [facility] [address] [place] Office [facility] 2018-12-09 2018-12-09 Ambulatory nullFlavo MNA [id number] Memoria 20:45:00 20:45:00 Pre-Reg r Neurology 03 l Juan [place] 2018-12-09 2018-12-09 Ambulatory nullFlavo MNA [id number] Memoria 20:45:00 20:45:00 Pre-Reg r Neurology 03 l Juan [place] 2018-12-09 2018-12-09 Outpatient MHIE MHIE [id number] Memoria 14:45:00 14:45:00 03 bonnie [place] 2018-12-09 2018-12-09 Outpatient [facility] [id number] 14:45:00 14:45:00 John Daina Moe 2018-07-26 2018-07-26 Outpatient MHIE MHIE [id number] Memoria 09:00:00 09:00:00 02 bonnie [place] 2018-07-26 2018-07-26 Outpatient MHIE MHIE [id number] Memoria 09:00:00 09:00:00 02 bonnie [place] 2018-04-26 2018-04-26 Outpatient MHIE MHIE [id number] Memoria 08:30:00 08:30:00 01 [facility] 2018-04-26 2018-04-26 Outpatient MHIE MHIE [id number] Memoria 08:30:00 08:30:00 01 [facility] 2018-04-04 2018-04-05 Day nullFlavo [facility] [id number] Memoria 17:57:00 04:59:00 Surgery r Dawood [address] [facility]ine [facility] 2018-04-04 2018-04-05 Day nullFlavo [facility] [id number] Memoria 17:57:00 04:59:00 Surgery r Dawood 02 Orthopedic [facility] 2018-04-04 2018-04-04 Outpatient Kimberly Ng [facility] [id number] 12:57:00 23:59:00 Han 02 2018-03-30 2018-03-30 Outpatient MHIE MHIE [id number] Memoria 13:30:00 13:30:00 00 [facility] 2018-03-30 2018-03-30 Outpatient MHIE IE [id number] Memoria 13:30:00 13:30:00 00 l [place] 2018-03-21 2018-03-22 Day nullFlavo [facility] [id number] Memoria 19:01:00 04:59:00 Surgery r Dawood 01 l Orthopedic [facility] 2018-03-21 2018-03-22 Day nullFlavo [facility] [id number] Memoria 19:01:00 04:59:00 Surgery r [place] 01 l [facility] 2018-03-21 2018-03-21 Outpatient Kimberly Ng [facility] [id number] 14:01:00 23:59:00 Han 2015-11-08 2015-11-08 Bedded nullFlavo [facility] [id number] Memoria 18:06:00 21:20:00 Outpatient r [place] 00 l [place] 2015-11-08 2015-11-08 Bedded nullFlavo [facility] [id number] Memoria 18:06:00 21:20:00 Outpatient r [place] 00 l [place] 2015-11-08 2015-11-08 Outpatient Guerrero, MHSL MHSL [id number] 12:06:00 15:20:00 Sheilendra 00 [facility] 2015-10-24 2015-10-25 Outpt Diag nullFlavo [facility] [id number] Memoria 15:50:00 05:59:00 Services r Outpatient 00 l Imaging [facility] 2015-10-24 2015-10-25 Outpt Diag nullFlavo [facility] [id number] Memoria 15:50:00 05:59:00 Services r Outpatient 00 l Imaging [facility] 2015-10-24 2015-10-24 Outpatient Guerrero, MHOIP MHOIP [id number] 09:50:00 23:59:00 Sheilendra 00 [facility] Results Test Description Test Time Test Comments Results Result Comments Source CBC WITH DIFF 2023-05-27 03:33:11 Test Item Value Reference Range Interpretation Comme nts WBC (test code = 6690-2) 6.84 See_Comment Pre vious preliminary verified result was 6.87 10*3/?L on 05/26/2023 at 22 32 CDT [Automated mess age] The system which generated this result transmitted ref erence range: 4.30 - 11.10 10 *3/?L. The reference range was not used to interpret th is result as normal/abnormal . RBC (test code = 789-8) 4.72 See_Comment Prev ious preliminary verified result was 4.73 10*6/?L on 05/26/2023 at 22 32 CDT [Automated mess age] The system which generated this result transmitted ref erence range: 3.93 - 5.25 10* 6/?L. The reference range was not used to interpret th is result as normal/abnormal . HGB (test code = 718-7) 15.2 g/dL 11.6-15.0 H Prev ious preliminary verified result was 14.9 g/dL on 05/26/2023 at 22 32 CDT HCT (test code = 4544-3) 43.7 % 35.7-45.2 Pre vious preliminary verified result was 43.9 % on 05/26/2023 at 2232 CDT MCV (test code = 787-2) 92.6 fL 80.6-95.5 Prev ious preliminary verified result was 92.8 fL on 05/26/2023 at 22 32 CDT MCH (test code = 785-6) 32.2 pg 25.9-32.8 Prev ious preliminary verified result was 31.5 pg on 05/26/2023 at 22 32 CDT MCHC (test code = 786-4) 34.8 g/dL 31.6-35.1 Pre vious preliminary verified result was 33.9 g/dL on 05/26/2023 at 22 32 CDT RDW-SD (test code = 50877-6) 42.4 fL 39.0-49.9 Previous preliminary verified result was 42.7 fL on 05/26/2023 at 22 32 CDT RDW-CV (test code = 788-0) 12.4 % 12.0-15.5 PLT (test code = 777-3) 217 See_Comment Prev ious preliminary verified result was 214 10*3/?L on 05/26/2023 at 22 32 CDT [Automated mess age] The system which generated this result transmitted ref erence range: 166 - 358 10*3/ ?L. The reference range was not used to interpret th is result as normal/abnormal . MPV (test code = 40426-5) 10.6 fL 9.5-12.9 NRBC/100 WBC (test code = 0.0 See_Comment [ Automated message] The [id number]) system which Mo[employer] nerated this result transmit kaylie reference range: 0.0 - 10 .0 /100 WBCs. The reference r pinky was not used to interpr et this result as normal/abnor mal. NRBC x10^3 (test code = See_Comment [Au tomated message] The [id number]) system which ge nerated this result transmit kaylie reference range: 10*3/?L. The reference range was not u sed to interpret this result as normal/abnormal . SEG % (test code = 11680-8) 46 % 33-76 BAND % (test code = 06451-7) 4 % 0-1 H LYMPH % (test code = 32 % 14-54 75103-4) REACT LYMPH % (test code = 2 % 5437400409) MONO % (test code = 92422-8) 13 % 0-4 H EOS % (test code = 02965-6) 3 % 0-3 ANC (test code = 753-4) 3.42 10*3/uL 1.88-7.09 Lab Interpretation (test Abnormal code = 97827-8) [facility] [id number] 03:18:28 Test Item Value Reference Range Interpretation Comments TROPONIN I (test code = 0.003 ng/mL <=0.034 4304229935) HEATHER (test code = HEATHER) Reference (Normal) Range (defined by the 99th percentile reference limit): <= 0.034 ng/mL Note: Cardiac troponin begins to rise 3-4 hours after the onset of ischemia. Repeat in 4-6 hours if the sample was drawn within 3-4 hours of the onset of the symptom and found normal. Diagnosis of myocardial injury is made with acute changes in cTn concentrations with at least one serial sample above the 99th percentile upper reference limit (URL), taken together with the patient's clinical presentation. Biotin has been reported to cause a negative bias, interpret results relative to patient's use of biotin. Lab Interpretation Normal (test code = 10424-6) [facility] HospitalN-TERMINAL [id number] 03:16:07 Test Item Value Reference Range Interpretation Comments NT-proBNP (test code = 50789-0) 31 pg/mL <=125 Lab Interpretation (test code = Normal 06347-4) [facility] HospitalProthrombin Time / [id number] 03:09:09 Test Item Value Reference Range Interpretation Comments PROTIME PATIENT (test 14.1 See_Comment [Auto mated message] code = 5964-2) The system [employer] generated this result transmitted ref erence range: 12.0 - 1 4.7 Seconds. The re ference range was not u sed to interpret this result as normal/abnor mal. INR (test code = 6301-6) 1.1 Nor mal INR <1.1; Warfarin Therap eutic range 2.0 to 3. 0 or 2.5 to 3.5, dep ending upon the indica tions. Lab Interpretation (test Normal code = 59317-4) [facility] HospitalCOMP. METABOLIC PANEL (13472)2023-05-27 03:07:08 Test Item Value Reference Range Interpretation Comments NA (test code = 139 mmol/L 135-145 8471057750) K (test code = 3.6 mmol/L 3.5-5.0 4458111895) CL (test code = 99 mmol/L 98-108 2210606764) CO2 TOTAL (test code = 31 mmol/L 23-31 0677306199) AGAP (test code = 9 2-16 0961628095) BUN (test code = 10 mg/dL 7-23 5448409927) GLUCOSE (test code = 151 mg/dL 70-110 H [id number]) CREATININE (test code = 0.74 mg/dL 0.50-1.04 9119106040) TOTAL BILI (test code = 0.5 mg/dL 0.1-1.8 6957282273) CALCIUM (test code = 9.3 mg/dL 8.6-10.6 4554855671) T PROTEIN (test code = 7.7 g/dL 6.3-8.2 4068549787) ALBUMIN (test code = 4.2 g/dL 3.5-5.0 6585979826) ALK PHOS (test code = 98 U/L 34-122 1699465985) ALTv (test code = 41 U/L 5-35 H 2-6) AST(SGOT) (test code = 41 U/L 13-40 H 4657101891) eGFR (test code = 81.2 mL/min/1.73m2 1685401520) HEATHER (test code = HEATHER) Association of Glomerular Filtration Rate (GFR) and Staging of Kidney Disease* + --+ --+ ------+| GFR (mL/min/1.73 m2) ?| With Kidney Damage ?| ?Without Kidney Damage+ --------+ --------+ +| ?>90 ?| ?Stage one ?| ? Normal ?+ ---+ ---+ -------+| ?60-89 ?| ?Stage two ?| ? Decreased GFR ? + --+ --+ ------+| ?30-59 ?| ?Stage three ?| ? Stage three ? + --+ --+ ------+| ?15-29 ?| ?Stage four ? | ? Stage four ?+ ---+ ---+ -------+| ?<15 (or dialysis) ? ?| ?Stage five ? | ? Stage five ?+ ---+ ---+ -------+ *Each stage assumes the associated GFR [...] or abnormalities in imaging tests). Lab Interpretation Abnormal (test code = 88027-9) [facility] [id number] 18:11:00 Test Item Value Reference Range Interpretation [...] given. Lab Interpretation Abnormal (test code = 63560-1) [facility] [id number] 18:11:00 Test Item Value Reference Range Interpretation [...] given. Lab Interpretation Abnormal (test code = 87411-6) [facility] Bcymj8448-34-11 18:11:00 Test Item Value Reference Range Interpretation [...] given. Lab Interpretation Abnormal (test code = 91483-1) [facility] [id number] 18:11:00 Test Item Value Reference Range Interpretation [...] given. Lab Interpretation Abnormal (test code = 53740-3) [facility] [id number] 18:11:00 Test Item Value Reference Range Interpretation [...] given. Lab Interpretation Abnormal (test code = 32533-5) [facility] Hktvd9738-14-38 18:11:00 Test Item Value Reference Range Interpretation [...] given. Lab Interpretation Abnormal (test code = 60834-3) [facility] [id number] 18:11:00 Test Item Value Reference Range Interpretation [...] 1 units/m L ( 1 mg/kg q 24 hr and estimated CrCl <30 mL/min ) 1 [...] given. Lab Interpretation Abnormal (test code = 58535-2) [facility] Mhint1149-07-91 18:11:00 Test Item Value Reference Range Interpretation [...] given. Lab Interpretation Abnormal (test code = 36080-4) [facility] Cancer [facility] Glucose Wkhcls7377-14-53 17:09:21 Test Item Value Reference Interpretation Comments [...] Capillary code = 9554) Performing Lab (test [facility] Main [place] code = 42384) [facility] Cli nical Lab, [address], [place] [address]; Postal Superintendent: Margarita Jacob MD; Waived Point of Care Testing - Gabrielle aaron MD Lab Interpretation Abnormal (test code = 42196-3) [facility] Glucose [id number] 17:09:21 Test Item Value Reference Interpretation Comments [...] Capillary code = 9554) Performing Lab (test [facility] [place] Main [place] code = 27163) [facility] Cli nical Lab, [address] [facility] [address], [place] [address]; Postal Superintendent: Margarita Jacob MD; Waived Point of Care Testing - Gabrielle aaron MD Lab Interpretation Abnormal (test code = 17252-3) [facility] Glucose [id number] 17:09:21 Test Item Value Reference Interpretation Comments [...] Capillary code = 9554) Performing Lab (test [facility] code = 62420) [facility] Cli nical Lab, [address] [place] [address]; Postal Superintendent: Margarita Jacob MD; Waived Point of Care Testing - Gabrielle aaron MD Lab Interpretation Abnormal (test code = 11954-8) [facility] Glucose [id number] 17:09:21 Test Item Value Reference Interpretation Comments [...] Capillary code = 9554) Performing Lab (test [facility] code = 24327) [facility] Cli nical Lab, [address] [place] [address]; Postal Superintendent: Margarita Jacob MD; Waived Point of Care Testing - Gabrielle aaron MD Lab Interpretation Abnormal (test code = 06359-6) [facility] Glucose Rrptbc9421-67-16 17:09:21 Test Item Value Reference Interpretation Comments [...] Capillary code = 9554) Performing Lab (test [facility] code = 69366) [facility] Cli nical Lab, [address] [place] [address]; Postal Superintendent: Margarita Jacob MD; Waived Point of Care Testing - Gabrielle aaron MD Lab Interpretation Abnormal (test code = 23633-7) [facility] Glucose [id number] 17:09:21 Test Item Value Reference Interpretation Comments [...] Capillary code = 9554) Performing Lab (test [facility] code = 16474) [facility] Cli nical Lab, [address], [place] [address]; Postal Superintendent: Margarita Jacob MD; Waived Point of Care Testing - Gabrielle aaron MD Lab Interpretation Abnormal (test code = 02902-4) [facility] Glucose Wzxomh3524-17-05 17:09:21 Test Item Value Reference Interpretation Comments [...] Capillary code = 9554) Performing Lab (test [facility] code = 61428) [facility], [address] [place] [address]; Postal Superintendent: Margarita Jacob MD; Waived Point of Care Testing - Gabrielle aaron MD Lab Interpretation Abnormal (test code = 14389-9) [facility] Cancer [facility] Glucose [id number] 17:09:21 Test Item Value Reference Interpretation Comments [...] Capillary code = 9554) Performing Lab (test [facility] code = 54973) [facility] Cli nical Lab, [address], [place] [address]; Postal Superintendent: Margarita Jacob MD; Waived Point of Care Testing - Gabrielle aaron MD Lab Interpretation Abnormal (test code = 36101-6) [facility] [id number] 12:26:50 Test Item Value Reference Range Interpretation Comments Phosphorus (test code = 2777-1) 4.3 mg/dL 2.5-4.5 [facility] Beuue0942-40-57 12:26:50 Test Item Value Reference Range Interpretation Comments Phosphorus (test code = 2777-1) 4.3 mg/dL 2.5-4.5 [facility] [id number] 12:26:50 Test Item Value Reference Range Interpretation Comments Phosphorus (test code = 2777-1) 4.3 mg/dL 2.5-4.5 [facility] Wgcbc9430-30-12 12:26:50 Test Item Value Reference Range Interpretation Comments Phosphorus (test code = 2777-1) 4.3 mg/dL 2.5-4.5 [facility] [id number] 12:26:50 Test Item Value Reference Range Interpretation Comments Phosphorus (test code = 2777-1) 4.3 mg/dL 2.5-4.5 [facility] [id number] 12:26:50 Test Item Value Reference Range Interpretation Comments Phosphorus (test code = 2777-1) 4.3 mg/dL 2.5-4.5 [facility] Agjkd4522-73-18 12:26:50 Test Item Value Reference Range Interpretation Comments Phosphorus (test code = 2777-1) 4.3 mg/dL 2.5-4.5 [facility] Cwgiw3311-80-45 12:26:50 Test Item Value Reference Range Interpretation Comments Phosphorus (test code = 2777-1) 4.3 mg/dL 2.5-4.5 [facility] Icpmtvb4694-33-28 16:10:55 Test Item Value Reference Range Interpretation Comments Final Report (test code = 8488) No growth [facility] Hplkbsu4200-84-43 16:10:55 Test Item Value Reference Range Interpretation Comments Final Report (test code = 8488) No growth [facility] Ydqygct7470-39-48 16:10:55 Test Item Value Reference Range Interpretation Comments Final Report (test code = 8488) No growth [facility] Dqtccye0450-87-83 16:10:55 Test Item Value Reference Range Interpretation Comments Final Report (test code = 8488) No growth [facility]villeBlood Antofzw6653-87-21 16:10:55 Test Item Value Reference Range Interpretation Comments Final Report (test code = 8488) No growth [facility] Ttqqerc5714-67-56 16:10:55 Test Item Value Reference Range Interpretation Comments Final Report (test code = 8488) No growth [facility] Dwcjhda9549-91-77 16:10:55 Test Item Value Reference Range Interpretation Comments Final Report (test code = 8488) No growth [facility] Fszxgri4808-36-76 16:10:55 Test Item Value Reference Range Interpretation Comments Final Report (test code = 8488) No growth [facility]villeProcalcitonin2023-04-14 16:06:17 Test Item Value Reference Range Interpretation Comments Procalcitonin (test 0.38 ng/mL <=0.08 H Procalci tonin > 2.00 code = 67967-4) ng/mL: Proca lcitonin levels above 2. 00 [...] extended diluti on as it exceeds the bituminous distributor operator's recommended goldberg it. Caution should be exercised when interpreting agarwal ch values and done in conjunction wit h clinical contex t. Lab Interpretation Abnormal (test code = 59694-8) [facility]cal[facility]2023-04-14 16:06:17 Test Item Value Reference Range Interpretation Comments Procalcitonin (test 0.38 ng/mL <=0.08 H Procalci tonin > 2.00 code = 92247-4) ng/mL: Proca lcitonin levels above 2. 00 [...] extended diluti on as it exceeds the bituminous distributor operator's recommended goldberg it. Caution should be exercised when interpreting agarwal ch values and done in conjunction wit h clinical contex t. Lab Interpretation Abnormal (test code = 16079-7) [facility]ville[facility]calcitonin2023-04-14 16:06:17 Test Item Value Reference Range Interpretation Comments Procalcitonin (test 0.38 ng/mL <=0.08 H Procalci tonin > 2.00 code = 77319-5) ng/mL: Proca lcitonin levels above 2. 00 [...] extended diluti on as it exceeds the bituminous distributor operator's recommended goldberg it. Caution should be exercised when interpreting agarwal ch values and done in conjunction wit h clinical contex t. Lab Interpretation Abnormal (test code = 14810-5) [facility]2023-04-14 16:06:17 Test Item Value Reference Range Interpretation Comments Procalcitonin (test 0.38 ng/mL <=0.08 H Procalci tonin > 2.00 code = 15381-8) ng/mL: Proca lcitonin levels above 2. 00 [...] extended diluti on as it exceeds the bituminous distributor operator's recommended goldberg it. Caution should be exercised when interpreting agarwal ch values and done in conjunction wit clinical contex t. Lab Interpretation Abnormal (test code = 99635-6) [facility]2023-04-14 16:06:17 Test Item Value Reference Range Interpretation Comments Procalcitonin (test 0.38 ng/mL <=0.08 H Procalci tonin > 2.00 code = 65800-3) ng/mL: Proc alcitonin levels above 2. 00 ng/mL are highl [...] extended diluti on as it exceeds the bituminous distributor operator's recommended goldberg it. Caution should be exercised when interpreting agarwal ch values and done in conjunction [facility] clinical contex t. Lab Interpretation Abnormal (test code = 34605-9) [facility]2023-04-14 16:06:17 Test Item Value Reference Range Interpretation Comments Procalcitonin (test 0.38 ng/mL <=0.08 H Procalci tonin > 2.00 code = 94913-0) ng/mL: Proca lcitonin levels above 2. 00 [...] extended diluti on as it exceeds the bituminous distributor operator's recommended goldberg it. Caution should be exercised when interpreting agarwal ch values and done in conjunction wit clinical contex t. Lab Interpretation Abnormal (test code = 38911-1) [facility]2023-04-14 16:06:17 Test Item Value Reference Range Interpretation Comments Procalcitonin (test 0.38 ng/mL <=0.08 H Procalci tonin > 2.00 code = 98275-0) ng/mL: Proca lcitonin levels above 2. 00 [...] extended diluti on as it exceeds the bituminous distributor operator's recommended goldberg it. Caution should be exercised when interpreting agarwal ch values and done in conjunction wit clinical contex t. Lab Interpretation Abnormal (test code = 64704-5) [facility]2023-04-14 16:06:17 Test Item Value Reference Range Interpretation Comments Procalcitonin (test 0.38 ng/mL <=0.08 H Procalci tonin > 2.00 code = 93235-3) ng/mL: Proca lcitonin levels above 2. 00 [...] extended diluti on as it exceeds the bituminous distributor operator's recommended goldberg it. Caution should be exercised when interpreting agarwal ch values and done in conjunction wit clinical contex t. Lab Interpretation Abnormal (test code = 54441-9) [facility] Add-On Test 2023-02-12 15:17:04 Test Item Value Reference Range Interpretation Comments Ordered (test code = 6568) Test Added Test Needed (test code = 7604) procalcitonin [facility] Add-On Test 2023-02-12 15:17:04 Test Item Value Reference Range Interpretation Comments Ordered (test code = 6568) Test Added Test Needed (test code = 7604) [facility] 2023-02-12 15:17:04 Test Item Value Reference Range Interpretation Comments Ordered (test code = 6568) Test Added Test Needed (test code = 7604) [facility] Laboratory Add-On Test 2023-02-12 15:17:04 Test Item Value Reference Range Interpretation Comments Ordered (test code = 6568) Test Added Test Needed (test code = 7604) [facility] Laboratory Add-On Test 2023-02-12 15:17:04 Test Item Value Reference Range Interpretation Comments Ordered (test code = 6568) Test Added Test Needed (test code = 7604) [facility] Laboratory Add-On Test 2023-02-12 15:17:04 Test Item Value Reference Range Interpretation Comments Ordered (test code = 6568) Test Added Test Needed (test code = 7604) [facility] Laboratory Add-On Test 2023-02-12 15:17:04 Test Item Value Reference Range Interpretation Comments Ordered (test code = 6568) Test Added Test Needed (test code = 7604) [facility] Laboratory Add-On Test 2023-02-12 15:17:04 Test Item Value Reference Range Interpretation Comments Ordered (test code = 6568) Test Added Test Needed (test code = 7604) [facility] Lcwxsa5908-20-19 12:16:45 Test Item Value Reference Range Interpretation Comments CK (test code = 2157-6) 125 U/L 26-192 [facility] Prlvql2681-03-82 12:16:45 Test Item Value Reference Range Interpretation Comments CK (test code = 2157-6) 125 U/L 26-192 [facility] Xrqelh0656-62-58 12:16:45 Test Item Value Reference Range Interpretation Comments CK (test code = 2157-6) 125 U/L 26-192 [facility] Bdonqk9578-90-79 12:16:45 Test Item Value Reference Range Interpretation Comments CK (test code = 2157-6) 125 U/L 26-192 [facility] Vqcmiv3914-94-88 12:16:45 Test Item Value Reference Range Interpretation Comments CK (test code = 2157-6) 125 U/L -192 [facility] Aoibio0929-23-65 12:16:45 Test Item Value Reference Range Interpretation Comments CK (test code = 2157-6) 125 U/L -192 [facility] Nqftat4489-25-20 12:16:45 Test Item Value Reference Range Interpretation Comments CK (test code = 2157-6) 125 U/L 192 [facility] Clnvhj3712-08-85 12:16:45 Test Item Value Reference Range Interpretation Comments CK (test code = 2157-6) 125 U/L 192 [facility]villeHIV-1/2 Antigen and Antibodies, Fourth Hyugghywiv1701-81-35 07:28:44 Test Item Value Reference Range Interpretation Comments HIV Ag/Ab, NON-REACTIVE NON-REACTIVE HIV-1 antigen a nd 4TH Gen (test HIV-1/HIV-2 an tibodies were code = 23062) notdetected. T here is no laboratory evid [...] purpose. For additional information please refer tohttp://educat ion.Vyyo.com/faq /NBX087(This link is being p rovided for informational/e ducational purposes only.) The performance of this assay has not been clinicallyvalid ated in patients less t go 2 years old. Lab test p erformed by:Lab Mnemonic : [facility] [id number] [place] [address]XURLPJAKE MELÉNDEZ MD [facility]/2 Antigen and Antibodies, Fourth Cocjgyhxby8001-65-14 07:28:44 Test Item Value Reference Range Interpretation Comments HIV Ag/Ab, NON-REACTIVE NON-REACTIVE HIV-1 antigen a nd 4TH Gen (test HIV-1/HIV-2 an tibodies were code = 53502) notdetected. T here is no laboratory evid [...] purpose. For additional information please refer tohttp://educat ion.Vyyo.Avidity [employer]/faq /HPM176(This link is being p rovided for informational/e ducational purposes only.) The performance of this assay has not been clinicallyvalid ated in patients less t go 2 years old. Lab test p erformed by:Lab Mnemonic : [facility] [id number] [place] [address]KIJPN Christelle MELÉNDEZ MD [facility]/2 Antigen and Antibodies, Fourth Lzoqlsydyr9365-20-36 07:28:44 Test Item Value Reference Range Interpretation Comments HIV Ag/Ab, NON-REACTIVE NON-REACTIVE HIV-1 antigen a nd 4TH Gen (test HIV-1/HIV-2 an tibodies were code = 02061) notdetected. T here is no laboratory evid [...] this purpose. For additional information please refer tohttp://YouGov.Vyyo.[employer]/faq /HBJ848(This link is being p rovided for informational/e ducational purposes only.) The performance of this assay has not been clinicallyvalid ated in patients less t go 2 years old. Lab test p erformed by:Lab Mnemonic : [facility] [id number] [place] [address]SBZEXJAKE MELÉNDEZ MD [facility]/2 Antigen and Antibodies, Fourth Dydmidorso2379-47-94 07:28:44 Test Item Value Reference Range Interpretation Comments HIV Ag/Ab, NON-REACTIVE NON-REACTIVE HIV-1 antigen a nd 4TH Gen (test HIV-1/HIV-2 an tibodies were code = 54103) notdetected. T here is no laboratory evid [...] this purpose. For additional information please refer tohttp://YouGov.Vyyo.[employer]/faq /EGJ275(This link is being p rovided for informational/e ducational purposes only.) The performance of this assay has not been clinicallyvalid ated in patients less t go 2 years old. Lab test p erformed by:Lab Mnemonic : [facility] [id number] [place] [address]EQKUJJAKE MELÉNDEZ MD [facility]/2 Antigen and Antibodies, Fourth Gtpsigatwx9159-93-10 07:28:44 Test Item Value Reference Range Interpretation Comments HIV Ag/Ab, NON-REACTIVE NON-REACTIVE HIV-1 antigen a nd 4TH Gen (test HIV-1/HIV-2 an tibodies were code = 71647) notdetected. T here is no laboratory evid [...] this purpose. For additional information please refer tohttp://Narrable/faq /XDA518(This link is being p rovided for informational/e ducational purposes only.) The performance of this assay has not been clinicallyvalid ated in patients less t go 2 years old. Lab test p erformed by:Lab Mnemonic : [employer] [id number] [place] [address]JQWYE Christelle MELÉNDEZ MD [facility] [place] Antigen and Antibodies, Fourth Zflrhfedkg2090-59-16 07:28:44 Test Item Value Reference Range Interpretation Comments HIV Ag/Ab, NON-REACTIVE NON-REACTIVE HIV-1 antigen a nd 4TH Gen (test HIV-1/HIV-2 an tibodies were code = 97297) notdetected. T here is no laboratory evid [...] this purpose. For additional information please refer tohttp://Narrable/faq /MKL264(This link is being p rovided for informational/e ducational purposes only.) The performance of this assay has not been clinicallyvalid ated in patients less t go 2 years old. Lab test p erformed by:Lab Mnemonic : [employer] [id number] [place] [address]HGVVLJAKE MELÉNDEZ MD [facility]/2 Antigen and Antibodies, Fourth Doubclfspc0611-11-42 07:28:44 Test Item Value Reference Range Interpretation Comments HIV Ag/Ab, NON-REACTIVE NON-REACTIVE HIV-1 antigen a nd 4TH Gen (test HIV-1/HIV-2 an tibodies were code = 32544) notdetected. T here is no laboratory evid [...] general authorization f or the release of [facility] orother information is NOT sufficient for this purpose. For additional information please refer tohttp://educat ion.Vyyo.Av[employer]/faq /JRL223(This link is being p rovided for informational/e ducational purposes only.) The performance of this assay has not been clinicallyvalid ated in patients less t go 2 years old. Lab test p erformed by:Lab Mnemonic : [employer] [id number] [place] [address]LRDZUJAKE MELÉNDEZ MD [facility]/2 Antigen and Antibodies, Fourth Ndrmvjllqe3059-23-54 07:28:44 Test Item Value Reference Range Interpretation Comments HIV Ag/Ab, NON-REACTIVE NON-REACTIVE HIV-1 antigen a nd 4TH Gen (test HIV-1/HIV-2 an tibodies were code = 16500) notdetected. T here is no laboratory evid [...] purpose. For additional information please refer tohttp://educat ion.Vyyo.[employer]/faq /YPV709(This link is being p rovided for informational/e ducational purposes only.) The performance of this assay has not been clinicallyvalid ated in patients less t go 2 years old. Lab test p erformed by:Lab Mnemonic : [employer] [facility] [id number] [place] [address]FDVXO Christelle MELÉNDEZ MD [facility]ville[facility] Ulrcnlm4663-01-87 13:51:10 Test Item Value Reference Range Interpretation Comments Final Report (test code = 10 - 50,000 cfu/ml A 8488) Normal site isabel present.Generally of low significance.Correl ate with clinical data and culture history. Lab Interpretation (test Abnormal code = 63727-5) [facility] Poeouxo9179-34-60 13:51:10 Test Item Value Reference Range Interpretation Comments Final Report (test code = 10 - 50,000 cfu/ml A 8488) Normal site isabel present.Generally of low significance.Correl ate with clinical data and culture history. Lab Interpretation (test Abnormal code = 23161-5) [facility] Fdqoitf5708-51-56 13:51:10 Test Item Value Reference Range Interpretation Comments Final Report (test code = 10 - 50,000 cfu/ml A 8488) Normal site isabel present.Generally of low significance.Correl ate with clinical data and culture history. Lab Interpretation (test Abnormal code = 68171-0) [facility] Yumwawy1156-06-25 13:51:10 Test Item Value Reference Range Interpretation Comments Final Report (test code = 10 - 50,000 cfu/ml A 8488) Normal site isabel present.Generally of low significance.Correl ate with clinical data and culture history. Lab Interpretation (test Abnormal code = 23327-6) [facility] Qxcqtgr1143-16-86 13:51:10 Test Item Value Reference Range Interpretation Comments Final Report (test code = 10 - 50,000 cfu/ml A 8488) Normal site isabel present.Generally of low significance.Correl ate with clinical data and culture history. Lab Interpretation (test Abnormal code = 87212-9) [facility] Bzbhcfs8060-03-73 13:51:10 Test Item Value Reference Range Interpretation Comments Final Report (test code = 10 - 50,000 cfu/ml A 8488) Normal site isabel present.Generally of low significance.Correl ate with clinical data and culture history. Lab Interpretation (test Abnormal code = 80428-1) [facility] Qnlzgfo8903-55-03 13:51:10 Test Item Value Reference Range Interpretation Comments Final Report (test code = 10 - 50,000 cfu/ml A 8488) Normal site isabel present.Generally of low significance.Correl ate with clinical data and culture history. Lab Interpretation (test Abnormal code = 17100-1) [facility]villeUrine [id number] 13:51:10 Test Item Value Reference Range Interpretation Comments Final Report (test code = 10 - 50,000 cfu/ml A 8488) Normal site isabel present.Generally of low significance.Correl ate with clinical data and culture history. Lab Interpretation (test Abnormal code = 61892-6) [facility] [place]Gastrointestinal Multiplex Panel Path [id number] 21:40:55GIMP PRReviewed and Electronically signed by Pathologist:PATRICIA CHAVEZ MD #[id number] [facility]ENTERUnLas [facility] CenterGastrointestinal Multiplex Panel Path Review 2023-02-07 21:40:55GIMP PRReviewed and Electronically signed by Pathologist:PATRICIA CHAVEZ MD #[id number] [facility]ENTERUnLas Palmas Medical CenterGastrointestinal Multiplex Panel Path Review 2023-02-07 21:40:55GIMP PRReviewed and Electronically signed by Pathologist:PATRICIA CHAVEZ MD #[id number] [facility]ENTERUnLas Palmas Medical CenterGastrointestinal Multiplex Panel Path Review 2023-02-07 21:40:55GIMP PRReviewed and Electronically signed by Pathologist:PATRICIA CHAVEZ MD #[id number] [facility]ENTERUnLas [facility] Medical CenterGastrointestinal Multiplex Panel Path Review 2023-02-07 21:40:55GIMP PRReviewed and Electronically signed by Pathologist:PATRICIA CHAVEZ MD #[id number] [facility]ENTERUnLas Pal[facility] Medical CenterGastrointestinal Multiplex Panel Path Review 2023-02-07 21:40:55GIMP PRReviewed and Electronically signed by Pathologist:PATRICIA CHAVEZ MD #[id number] [facility]ENTERUnLas [facility] CenterGastrointestinal Multiplex Panel Path Review 2023-02-07 21:40:55GIMP PRReviewed and Electronically signed by Pathologist:PATRICIA CHAVEZ MD #[id number] [facility]ENTERUnLas [facility] CenterGastrointestinal Multiplex Panel Path Review 2023-02-07 21:40:55GIMP PRReviewed and Electronically signed by Pathologist:PATRICIA CHAVEZ MD #[id number] [facility]ENTERUnLas Palmas Medical CenterClostridium Difficile DNA Path Review 2023-02-07 21:35:15C diff DNA PRReviewed and Electronically signed by Pathologist:PATRICIA CHAVEZ MD #[id number] [facility]ENTERUnLas Pal[facility] Medical CenterClostridium Difficile DNA Path Review 2023-02-07 21:35:15C diff DNA PRReviewed and Electronically signed by Pathologist:PATRICIA CHAVEZ MD #[id number] [facility]ENTERUnLas Pal[facility] Medical CenterClostridium Difficile DNA Path Review 2023-02-07 21:35:15C diff DNA PRReviewed and Electronically signed by Pathologist:PATRICIA CHAVEZ MD #[id number] [facility]ENTERUnLas Pal[facility] Medical CenterClostridium Difficile DNA Path Review 2023-02-07 21:35:15C diff DNA PRReviewed and Electronically signed by Pathologist:PATRICIA CHAVEZ MD #[id number] [facility]ENTERUnLas Pal[facility] Medical CenterClostridium Difficile DNA Path Review 2023-02-07 21:35:15C diff DNA PRReviewed and Electronically signed by Pathologist:PATRICIA CHAVEZ MD #[id number] [facility]ENTERUnLas Pal[facility] Medical CenterClostridium Difficile DNA Path Review 2023-02-07 21:35:15C diff DNA PRReviewed and Electronically signed by Pathologist:PATRICIA CHAVEZ MD #[id number] [facility]ENTERUnLas Pal[facility] Medical CenterClostridium Difficile DNA Path Review 2023-02-07 21:35:15C diff DNA PRReviewed and Electronically signed by Pathologist:PATRICIA CHAVEZ MD #[id number] [facility]ENTERUnLas Pal[facility] Medical CenterClostridium Difficile DNA Path Review 2023-02-07 21:35:15C diff DNA PRReviewed and Electronically signed by Pathologist:PATRICIA CHAVEZ MD #[id number] [facility] CENTERUnLas Palmas Medical CenterHepatitis B Surface [id number] 17:09:39 Test Item Value Reference Range Interpretation Comments HBsAg. (test code = 5747) Non Reactive Non Reactive [facility]villeHepatitis B Surface [id number] 17:09:39 Test Item Value Reference Range Interpretation Comments HBsAg. (test code = 5747) Non Reactive Non Reactive [facility] B Surface [id number] 17:09:39 Test Item Value Reference Range Interpretation Comments HBsAg. (test code = 5747) Non Reactive Non Reactive [facility]villeHepsychiatrictis B Surface [id number] 17:09:39 Test Item Value Reference Range Interpretation Comments HBsAg. (test code = 5747) Non Reactive Non Reactive [facility] [place]villeHepatitis B Surface [id number] 17:09:39 Test Item Value Reference Range Interpretation Comments HBsAg. (test code = 5747) Non Reactive Non Reactive [facility]villeHepatitis B Surface [id number] 17:09:39 Test Item Value Reference Range Interpretation Comments HBsAg. (test code = 5747) Non Reactive Non Reactive [facility]villeHepatitis B Surface [id number] 17:09:39 Test Item Value Reference Range Interpretation Comments HBsAg. (test code = 5747) Non Reactive Non Reactive [facility]villeHepatitis B Surface [id number] 17:09:39 Test Item Value Reference Range Interpretation Comments HBsAg. (test code = 5747) Non Reactive Non Reactive [facility]villeHepsychiatrictis C Virus [id number] 16:29:30 Test Item Value Reference Range Interpretation Comments HCVAb. (test Non Reactive Non Reactive Antibody detect ion in the code = 5762) immunocompromis ed and immunosuppresse d population may be delayed or absent entirely. There fore serial testing, correl ation with other clinical findings, and supplementa l testing (if available) should be taken into cons ideration when interpreti ng the results. [facility] C Virus [id number] 16:29:30 Test Item Value Reference Range Interpretation Comments HCVAb. (test Non Reactive Non Reactive Antibody detect ion in the code = 5762) immunocompromis ed and immunosuppresse d population may be delayed or absent entirely. There fore serial testing, correl ation with other clinical findings, and supplementa l testing (if available) should be taken into cons ideration when interpreti ng the results. [facility] C Virus [id number] 16:29:30 Test Item Value Reference Range Interpretation Comments HCVAb. (test Non Reactive Non Reactive Antibody detect ion in the code = 5762) immunocompromis ed and immunosuppresse d population may be delayed or absent entirely. There fore serial testing, correl ation with other clinical findings, and supplementa l testing (if available) should be taken into cons ideration when interpreti ng the results. [facility]villeHepatitis C Virus [id number] 16:29:30 Test Item Value Reference Range Interpretation Comments HCVAb. (test Non Reactive Non Reactive Antibody detect ion in the code = 5762) immunocompromis ed and immunosuppresse d population may be delayed or absent entirely. There fore serial testing, correl ation with other clinical findings, and supplementa l testing (if available) should be taken into cons ideration when interpreti ng the results. [facility]villeHepsychiatrictis C Virus [id number] 16:29:30 Test Item Value Reference Range Interpretation Comments HCVAb. (test Non Reactive Non Reactive Antibody detect ion in the code = 5762) immunocompromis ed and immunosuppresse d population may be delayed or absent entirely. There fore serial testing, correl ation with other clinical findings, and supplementa l testing (if available) should be taken into cons ideration when interpreti ng the results. [facility] C Virus [id number] 16:29:30 Test Item Value Reference Range Interpretation Comments HCVAb. (test Non Reactive Non Reactive Antibody detect ion in the code = 5762) immunocompromis ed and immunosuppresse d population may be delayed or absent entirely. There fore serial testing, correl ation with other clinical findings, and supplementa l testing (if available) should be taken into cons ideration when interpreti ng the results. [facility] C Virus [id number] 16:29:30 Test Item Value Reference Range Interpretation Comments HCVAb. (test Non Reactive Non Reactive Antibody detect ion in the code = 5762) immunocompromis ed and immunosuppresse d population may be delayed or absent entirely. There fore serial testing, correl ation with other clinical findings, and supplementa l testing (if available) should be taken into cons ideration when interpreti ng the results. [facility] C Virus [id number] 16:29:30 Test Item Value Reference Range Interpretation Comments HCVAb. (test Non Reactive Non Reactive Antibody detect ion in the code = 5762) immunocompromis ed and immunosuppresse d population may be delayed or absent entirely. There fore serial testing, correl ation with other clinical findings, and supplementa l testing (if available) should be taken into cons ideration when interpreti ng the results. [facility] B Total Ig Core Ab (SCREENING) (anti-HBc total Ig; HBcAb total Ig)2023-02-07 16:29:12 Test Item Value Reference Range Interpretation Comments HBcAb. (test code = 5742) Non Reactive Non Reactive [facility] B Total Ig Core Ab (SCREENING) (anti-HBc total Ig; HBcAb total Ig)2023-02-07 16:29:12 Test Item Value Reference Range Interpretation Comments HBcAb. (test code = 5742) Non Reactive Non Reactive [facility] B Total Ig Core Ab (SCREENING) (anti-HBc total Ig; HBcAb total Ig)2023-02-07 16:29:12 Test Item Value Reference Range Interpretation Comments HBcAb. (test code = 5742) Non Reactive Non Reactive [facility] B Total Ig Core Ab (SCREENING) (anti-HBc total Ig; HBcAb total Ig)2023-02-07 16:29:12 Test Item Value Reference Range Interpretation Comments HBcAb. (test code = 5742) Non Reactive Non Reactive [facility] B Total Ig Core Ab (SCREENING) (anti-HBc total Ig; HBcAb total Ig)2023-02-07 16:29:12 Test Item Value Reference Range Interpretation Comments HBcAb. (test code = 5742) Non Reactive Non Reactive [facility] B Total Ig Core Ab (SCREENING) (anti-HBc total Ig; HBcAb total Ig)2023-02-07 16:29:12 Test Item Value Reference Range Interpretation Comments HBcAb. (test code = 5742) Non Reactive Non Reactive [facility] B Total Ig Core Ab (SCREENING) (anti-HBc total Ig; HBcAb total Ig)2023-02-07 16:29:12 Test Item Value Reference Range Interpretation Comments HBcAb. (test code = 5742) Non Reactive Non Reactive [facility] B Total Ig Core Ab (SCREENING) (anti-HBc total Ig; HBcAb total Ig)2023-02-07 16:29:12 Test Item Value Reference Range Interpretation Comments HBcAb. (test code = 5742) Non Reactive Non Reactive [facility]villeClostridium Difficile DNA Assay 2023-02-07 14:32:28 Test Item Value Reference Range Interpretation Comments C difficile DNA (test Negative Negative code = 5134) C difficle Toxin EIA Test Not Performed Negative (test code = 8961) C difficile C. difficile DNA Interpretation (test code detection was = [id number]) negative making C. difficile infection highly unlikely in this patient. EIA not performed. [facility]villeClostridium Difficile DNA Assay 2023-02-07 14:32:28 Test Item Value Reference Range Interpretation Comments C difficile DNA (test Negative Negative code = 5134) C difficle Toxin EIA Test Not Performed Negative (test code = 8961) C difficile C. difficile DNA Interpretation (test code detection was = [id number]) negative making C. difficile infection highly unlikely in this patient. EIA not performed. [facility]villeClost[facility] Difficile DNA Assay 2023-02-07 14:32:28 Test Item Value Reference Range Interpretation Comments C difficile DNA (test Negative Negative code = 5134) C difficle Toxin EIA Test Not Performed Negative (test code = 8961) C difficile C. difficile DNA Interpretation (test code detection was = [id number]) negative making C. difficile infection highly unlikely in this patient. EIA not performed. [facility]Clost[facility] Difficile DNA Assay 2023-02-07 14:32:28 Test Item Value Reference Range Interpretation Comments C difficile DNA (test Negative Negative code = 5134) C difficle Toxin EIA Test Not Performed Negative (test code = 8961) C difficile C. difficile DNA Interpretation (test code detection was = 5589720) negative making C. difficile infection highly unlikely in this patient. EIA not performed. [facility]Cl[facility] Diff[facility] DNA Assay 2023-02-07 14:32:28 Test Item Value Reference Range Interpretation Comments C difficile DNA (test Negative Negative code = 5134) C difficle Toxin EIA Test Not Performed Negative (test code = 8961) C difficile C. difficile DNA Interpretation (test code detection was = 6602377) negative making C. difficile infection highly unlikely in this patient. EIA not performed. [facility]Clost[facility] Difficile DNA Assay 2023-02-07 14:32:28 Test Item Value Reference Range Interpretation Comments C difficile DNA (test Negative Negative code = 5134) C difficle Toxin EIA Test Not Performed Negative (test code = 8961) C difficile C. difficile DNA Interpretation (test code detection was = 8404514) negative making C. difficile infection highly unlikely in this patient. EIA not performed. [facility]Cl[facility] Diff[facility] DNA Assay 2023-02-07 14:32:28 Test Item Value Reference Range Interpretation Comments C difficile DNA (test Negative Negative code = 5134) C difficle Toxin EIA Test Not Performed Negative (test code = 8961) C difficile C. difficile DNA Interpretation (test code detection was = 2932545) negative making C. difficile infection highly unlikely in this patient. EIA not performed. [facility] Diff[facility] DNA Assay 2023-02-07 14:32:28 Test Item Value Reference Range Interpretation Comments C difficile DNA (test Negative Negative code = 5134) C difficle Toxin EIA Test Not Performed Negative (test code = 8961) C difficile C. difficile DNA Interpretation (test code detection was = 7280136) negative making C. difficile infection highly unlikely in this patient. EIA not performed. [facility] 2023-02-07 13:55:28 Test Item Value Reference Range Interpretation Comments Campylobacter (test code = Not Detected Not Detected 52145-3) C difficile DNA (GI Multi Refer to separate Panel) (test code = C. difficile DNA 96806-0) Assay for results Plesiomonas shigelloides Not Detected Not Detected (test code = 21518-7) Salmonella (test code = Not Detected Not Detected 79618-3) Vibrio (test code = Not Detected Not Detected 47175-0) Vibrio cholerae (test code Not Detected Not Detected = 91617-3) Yersinia enterocolitica Not Detected Not Detected (test code = 16613-9) Enteroaggregative E. coli Not Detected Not Detected (EAEC) (test code = 06499-5) Enteropathogenic E. coli Not Detected Not Detected (EPEC) (test code = 90337-4) Enterotoxigenic E. coli Not Detected Not Detected (ETEC) (test code = 00278-5) Shiga-like toxin-producing Not Detected Not Detected E. col (STEC) (test code = 78626-2) E. coli O157 (test code = Not Applicable Not Detected 65337-6) Shigella/Enteroinvasive E. Not Detected Not Detected coli (EIEC) (test code = 40736-9) Cryptosporidium (test code Not Detected Not Detected = 25248-7) Cyclospora cayetanensis Not Detected Not Detected (test code = 94841-2) Entamoeba histolytica Not Detected Not Detected (test code = 33418-0) Giardia lamblia (test code Not Detected Not Detected = 33767-4) Adenovirus F 40/41 (test Not Detected Not Detected code = 13325-4) Astrovirus (test code = Not Detected Not Detected 00451-2) Norovirus GI/GII (test Not Detected Not Detected code = 85328-3) Rotavirus A (test code = Not Detected Not Detected 12211-0) Sapovirus (I, II, IV and Not Detected Not Detected V) (test code = 44422-1) [facility] [place] 2023-02-07 13:55:28 Test Item Value Reference Range Interpretation Comments Campylobacter (test code = Not Detected Not Detected 09276-7) C difficile DNA (GI Multi Refer to separate Panel) (test code = C. difficile DNA 69443-1) Assay for results Plesiomonas shigelloides Not Detected Not Detected (test code = 89608-7) Salmonella (test code = Not Detected Not Detected 00866-8) Vibrio (test code = Not Detected Not Detected 77618-7) Vibrio cholerae (test code Not Detected Not Detected = 05712-9) Yersinia enterocolitica Not Detected Not Detected (test code = 51740-7) Enteroaggregative E. coli Not Detected Not Detected (EAEC) (test code = 90914-2) Enteropathogenic E. coli Not Detected Not Detected (EPEC) (test code = 27694-6) Enterotoxigenic E. coli Not Detected Not Detected (ETEC) (test code = 12702-0) Shiga-like toxin-producing Not Detected Not Detected E. col (STEC) (test code = 22408-4) E. coli O157 (test code = Not Applicable Not Detected 27457-9) Shigella/Enteroinvasive E. Not Detected Not Detected coli (EIEC) (test code = 48469-4) Cryptosporidium (test code Not Detected Not Detected = 60452-2) Cyclospora cayetanensis Not Detected Not Detected (test code = 84541-0) Entamoeba histolytica Not Detected Not Detected (test code = 23729-5) Giardia lamblia (test code Not Detected Not Detected = 57044-3) Adenovirus F 40/41 (test Not Detected Not Detected code = 91912-9) Astrovirus (test code = Not Detected Not Detected 62952-0) Norovirus GI/GII (test Not Detected Not Detected code = 82426-8) Rotavirus A (test code = Not Detected Not Detected 13750-5) Sapovirus (I, II, IV and Not Detected Not Detected V) (test code = 97165-4) [facility] [place] [facility] 2023-02-07 13:55:28 Test Item Value Reference Range Interpretation Comments Campylobacter (test code = Not Detected Not Detected 60570-5) C difficile DNA (GI Multi Refer to separate Panel) (test code = C. difficile DNA 87169-9) Assay for results Plesiomonas shigelloides Not Detected Not Detected (test code = 02152-6) Salmonella (test code = Not Detected Not Detected 30841-6) Vibrio (test code = Not Detected Not Detected 48215-5) Vibrio cholerae (test code Not Detected Not Detected = 97284-0) Yersinia enterocolitica Not Detected Not Detected (test code = 79548-0) Enteroaggregative E. coli Not Detected Not Detected (EAEC) (test code = 21413-4) Enteropathogenic E. coli Not Detected Not Detected (EPEC) (test code = 71803-3) Enterotoxigenic E. coli Not Detected Not Detected (ETEC) (test code = 90652-0) Shiga-like toxin-producing Not Detected Not Detected E. col (STEC) (test code = 84153-1) E. coli O157 (test code = Not Applicable Not Detected 33380-4) Shigella/Enteroinvasive E. Not Detected Not Detected coli (EIEC) (test code = 18382-8) Cryptosporidium (test code Not Detected Not Detected = 28854-8) Cyclospora cayetanensis Not Detected Not Detected (test code = 47192-4) Entamoeba histolytica Not Detected Not Detected (test code = 73630-3) Giardia lamblia (test code Not Detected Not Detected = 45451-6) Adenovirus F 40/41 (test Not Detected Not Detected code = 35723-2) Astrovirus (test code = Not Detected Not Detected 17909-7) Norovirus GI/GII (test Not Detected Not Detected code = 11185-5) Rotavirus A (test code = Not Detected Not Detected 58450-6) Sapovirus (I, II, IV and Not Detected Not Detected V) (test code = 35275-3) [facility] 2023-02-07 13:55:28 Test Item Value Reference Range Interpretation Comments Campylobacter (test code = Not Detected Not Detected 59664-9) C difficile DNA (GI Multi Refer to separate Panel) (test code = C. difficile DNA 67500-5) Assay for results Plesiomonas shigelloides Not Detected Not Detected (test code = 45402-9) Salmonella (test code = Not Detected Not Detected 39356-1) Vibrio (test code = Not Detected Not Detected 17301-4) Vibrio cholerae (test code Not Detected Not Detected = 61415-4) Yersinia enterocolitica Not Detected Not Detected (test code = 08386-5) Enteroaggregative E. coli Not Detected Not Detected (EAEC) (test code = 38112-6) Enteropathogenic E. coli Not Detected Not Detected (EPEC) (test code = 84851-3) Enterotoxigenic E. coli Not Detected Not Detected (ETEC) (test code = 00642-6) Shiga-like toxin-producing Not Detected Not Detected E. col (STEC) (test code = 40342-2) E. coli O157 (test code = Not Applicable Not Detected 99023-8) Shigella/Enteroinvasive E. Not Detected Not Detected coli (EIEC) (test code = 49260-2) Cryptosporidium (test code Not Detected Not Detected = 09476-3) Cyclospora cayetanensis Not Detected Not Detected (test code = 65911-4) Entamoeba histolytica Not Detected Not Detected (test code = 16904-8) Giardia lamblia (test code Not Detected Not Detected = 54868-4) Adenovirus F 40/41 (test Not Detected Not Detected code = 47216-0) Astrovirus (test code = Not Detected Not Detected 74734-1) Norovirus GI/GII (test Not Detected Not Detected code = 46423-8) Rotavirus A (test code = Not Detected Not Detected 34357-8) Sapovirus (I, II, IV and Not Detected Not Detected V) (test code = 33939-3) [facility] 2023-[facility]-07 13:55:28 Test Item Value Reference Range Interpretation Comments Campylobacter (test code = Not Detected Not Detected 62446-2) C difficile DNA (GI Multi Refer to separate Panel) (test code = C. difficile DNA 84397-3) Assay for results Plesiomonas shigelloides Not Detected Not Detected (test code = 22769-6) Salmonella (test code = Not Detected Not Detected 43958-6) Vibrio (test code = Not Detected Not Detected 93051-6) Vibrio cholerae (test code Not Detected Not Detected = 99142-5) Yersinia enterocolitica Not Detected Not Detected (test code = 11094-1) Enteroaggregative E. coli Not Detected Not Detected (EAEC) (test code = 70929-2) Enteropathogenic E. coli Not Detected Not Detected (EPEC) (test code = 91819-8) Enterotoxigenic E. coli Not Detected Not Detected (ETEC) (test code = 72050-8) Shiga-like toxin-producing Not Detected Not Detected E. col (STEC) (test code = 17796-7) E. coli O157 (test code = Not Applicable Not Detected 75055-6) Shigella/Enteroinvasive E. Not Detected Not Detected coli (EIEC) (test code = 88406-1) Cryptosporidium (test code Not Detected Not Detected = 85342-9) Cyclospora cayetanensis Not Detected Not Detected (test code = 09376-6) Entamoeba histolytica Not Detected Not Detected (test code = 06487-8) Giardia lamblia (test code Not Detected Not Detected = 15610-4) Adenovirus F 40/41 (test Not Detected Not Detected code = 43069-2) Astrovirus (test code = Not Detected Not Detected 91113-2) Norovirus GI/GII (test Not Detected Not Detected code = 14537-5) Rotavirus A (test code = Not Detected Not Detected 41193-6) Sapovirus (I, II, IV and Not Detected Not Detected V) (test code = 46758-6) [facility] [place] 2023-02-07 13:55:28 Test Item Value Reference Range Interpretation Comments Campylobacter (test code = Not Detected Not Detected 78549-2) C difficile DNA (GI Multi Refer to separate Panel) (test code = C. difficile DNA 74921-2) Assay for results Plesiomonas shigelloides Not Detected Not Detected (test code = 53178-2) Salmonella (test code = Not Detected Not Detected 43098-4) Vibrio (test code = Not Detected Not Detected 73188-4) Vibrio cholerae (test code Not Detected Not Detected = 04046-0) Yersinia enterocolitica Not Detected Not Detected (test code = 08453-0) Enteroaggregative E. coli Not Detected Not Detected (EAEC) (test code = 93873-4) Enteropathogenic E. coli Not Detected Not Detected (EPEC) (test code = 33536-9) Enterotoxigenic E. coli Not Detected Not Detected (ETEC) (test code = 75245-2) Shiga-like toxin-producing Not Detected Not Detected E. col (STEC) (test code = 43839-7) E. coli O157 (test code = Not Applicable Not Detected 24088-1) Shigella/Enteroinvasive E. Not Detected Not Detected coli (EIEC) (test code = 74182-7) Cryptosporidium (test code Not Detected Not Detected = 25667-1) Cyclospora cayetanensis Not Detected Not Detected (test code = 47669-2) Entamoeba histolytica Not Detected Not Detected (test code = 02966-9) Giardia lamblia (test code Not Detected Not Detected = 81124-8) Adenovirus F 40/41 (test Not Detected Not Detected code = 75849-9) Astrovirus (test code = Not Detected Not Detected 06063-9) Norovirus GI/GII (test Not Detected Not Detected code = 28028-3) Rotavirus A (test code = Not Detected Not Detected 51507-2) Sapovirus (I, II, IV and Not Detected Not Detected V) (test code = 77537-6) [facility] [place] [place] [facility]07 13:55:28 Test Item Value Reference Range Interpretation Comments Campylobacter (test code = Not Detected Not Detected 26211-1) C difficile DNA (GI Multi Refer to separate Panel) (test code = C. difficile DNA 19406-6) Assay for results Plesiomonas shigelloides Not Detected Not Detected (test code = 50247-1) Salmonella (test code = Not Detected Not Detected 86765-5) Vibrio (test code = Not Detected Not Detected 72637-1) Vibrio cholerae (test code Not Detected Not Detected = 83639-6) Yersinia enterocolitica Not Detected Not Detected (test code = 62289-3) Enteroaggregative E. coli Not Detected Not Detected (EAEC) (test code = 95464-7) Enteropathogenic E. coli Not Detected Not Detected (EPEC) (test code = 42537-5) Enterotoxigenic E. coli Not Detected Not Detected (ETEC) (test code = 79151-9) Shiga-like toxin-producing Not Detected Not Detected E. col (STEC) (test code = 55679-1) E. coli O157 (test code = Not Applicable Not Detected 34319-5) Shigella/Enteroinvasive E. Not Detected Not Detected coli (EIEC) (test code = 60689-9) Cryptosporidium (test code Not Detected Not Detected = 27714-9) Cyclospora cayetanensis Not Detected Not Detected (test code = 61161-8) Entamoeba histolytica Not Detected Not Detected (test code = 42515-9) Giardia lamblia (test code Not Detected Not Detected = 04918-4) Adenovirus F 40/41 (test Not Detected Not Detected code = 34001-3) Astrovirus (test code = Not Detected Not Detected 42873-4) Norovirus GI/GII (test Not Detected Not Detected code = 07402-2) Rotavirus A (test code = Not Detected Not Detected 39256-5) Sapovirus (I, II, IV and Not Detected Not Detected V) (test code = 74771-1) [facility] [place] 2023-02-07 13:55:28 Test Item Value Reference Range Interpretation Comments Campylobacter (test code = Not Detected Not Detected 74186-3) C difficile DNA (GI Multi Refer to separate Panel) (test code = C. difficile DNA 19195-6) Assay for results Plesiomonas shigelloides Not Detected Not Detected (test code = 38822-1) Salmonella (test code = Not Detected Not Detected 78620-8) Vibrio (test code = Not Detected Not Detected 09050-2) Vibrio cholerae (test code Not Detected Not Detected = 09204-9) Yersinia enterocolitica Not Detected Not Detected (test code = 65845-1) Enteroaggregative E. coli Not Detected Not Detected (EAEC) (test code = 02169-6) Enteropathogenic E. coli Not Detected Not Detected (EPEC) (test code = 81049-1) Enterotoxigenic E. coli Not Detected Not Detected (ETEC) (test code = 07649-3) Shiga-like toxin-producing Not Detected Not Detected E. col (STEC) (test code = 47773-1) E. coli O157 (test code = Not Applicable Not Detected 09128-9) Shigella/Enteroinvasive E. Not Detected Not Detected coli (EIEC) (test code = 23327-7) Cryptosporidium (test code Not Detected Not Detected = 82020-8) Cyclospora cayetanensis Not Detected Not Detected (test code = 94284-8) Entamoeba histolytica Not Detected Not Detected (test code = 54128-9) Giardia lamblia (test code Not Detected Not Detected = 32439-3) Adenovirus F 40/41 (test Not Detected Not Detected code = 96315-7) Astrovirus (test code = Not Detected Not Detected 23917-7) Norovirus GI/GII (test Not Detected Not Detected code = 50440-4) Rotavirus A (test code = Not Detected Not Detected 97269-7) Sapovirus (I, II, IV and Not Detected Not Detected V) (test code = 25397-2) [facility] [id number] 13:31:20 Test Item Value Reference Range Interpretation Comments Ferritin Lvl (test code = 2276-4) 320 ng/mL 13-150 H Lab Interpretation (test code = Abnormal 15913-6) [facility] [id number] 13:31:20 Test Item Value Reference Range Interpretation Comments Ferritin Lvl (test code = 2276-4) 320 ng/mL 13-150 H Lab Interpretation (test code = Abnormal 06350-8) [facility] [id number] 13:31:20 Test Item Value Reference Range Interpretation Comments Ferritin Lvl (test code = 2276-4) 320 ng/mL 13-150 H Lab Interpretation (test code = Abnormal 82768-4) [facility] [id number] 13:31:20 Test Item Value Reference Range Interpretation Comments Ferritin Lvl (test code = 2276-4) 320 ng/mL 13-150 H Lab Interpretation (test code = Abnormal 95286-7) [facility] [id number] 13:31:20 Test Item Value Reference Range Interpretation Comments Ferritin Lvl (test code = 2276-4) 320 ng/mL 13-150 H Lab Interpretation (test code = Abnormal 60971-4) [facility] [id number] 13:31:20 Test Item Value Reference Range Interpretation Comments Ferritin Lvl (test code = 2276-4) 320 ng/mL 13-150 H Lab Interpretation (test code = Abnormal 89119-2) [facility] [id number] 13:31:20 Test Item Value Reference Range Interpretation Comments Ferritin Lvl (test code = 2276-4) 320 ng/mL 13-150 H Lab Interpretation (test code = Abnormal 87691-7) [facility] [id number] 13:31:20 Test Item Value Reference Range Interpretation Comments Ferritin Lvl (test code = 2276-4) 320 ng/mL 13-150 H Lab Interpretation (test code = Abnormal 04266-1) [facility] [id number] 13:25:21 Test Item Value Reference Range Interpretation Comments Transferrin (test code 205 mg/dL 200-360 = 3034-6) TIBC (test code = 287 See_Comment [Automate d message] 2500-7) The system iSites generated this result transmitted ref erence range: 250 - 45 0 mcg/dL. The ref erence range was not u sed to interpret this result as normal/abnor mal. [facility] [id number] 13:25:21 Test Item Value Reference Range Interpretation Comments Transferrin (test code 205 mg/dL 200-360 = 3034-6) TIBC (test code = 287 See_Comment [Automate d message] 2500-7) The system [employer] generated this result transmitted ref erence range: 250 - 45 0 mcg/dL. The ref erence range was not u sed to interpret this result as normal/abnor mal. [facility] [id number] 13:25:21 Test Item Value Reference Range Interpretation Comments Transferrin (test code 205 mg/dL 200-360 = 3034-6) TIBC (test code = 287 See_Comment [Automate d message] 2500-7) The system [employer] generated this result transmitted ref erence range: 250 - 45 0 mcg/dL. The ref erence range was not u sed to interpret this result as normal/abnor mal. [facility] [id number] 13:25:21 Test Item Value Reference Range Interpretation Comments Transferrin (test code 205 mg/dL 200-360 = 3034-6) TIBC (test code = 287 See_Comment [Automate d message] 2500-7) The system [employer] generated this result transmitted ref erence range: 250 - 45 0 mcg/dL. The ref erence range was not u sed to interpret this result as normal/abnor mal. [facility] [id number] 13:25:21 Test Item Value Reference Range Interpretation Comments Transferrin (test code 205 mg/dL 200-360 = 3034-6) TIBC (test code = 287 See_Comment [Automate d message] 2500-7) The system [employer] generated this result transmitted ref erence range: 250 - 45 0 mcg/dL. The ref erence range was not u sed to interpret this result as normal/abnor mal. [facility] [id number] 13:25:21 Test Item Value Reference Range Interpretation Comments Transferrin (test code 205 mg/dL 200-360 = 3034-6) TIBC (test code = 287 See_Comment [Automate d message] 2500-7) The system i[employer] generated this result transmitted ref erence range: 250 - 45 0 mcg/dL. The ref erence range was not u sed to interpret this result as normal/abnor mal. [facility] [id number] 13:25:21 Test Item Value Reference Range Interpretation Comments Transferrin (test code 205 mg/dL 200-360 = 3034-6) TIBC (test code = 287 See_Comment [Automate d message] 2500-7) The system TiVUS h generated this result transmitted ref erence range: 250 - 45 0 mcg/dL. The ref erence range was not u sed to interpret this result as normal/abnor mal. [facility] [id number] 13:25:21 Test Item Value Reference Range Interpretation Comments Transferrin (test code 205 mg/dL 200-360 = 3034-6) TIBC (test code = 287 See_Comment [Automate d message] 2500-7) The system ic h generated this result transmitted ref erence range: 250 - 45 0 mcg/dL. The ref erence range was not u sed to interpret this result as normal/abnor mal. [facility] [id number] 13:25:20 Test Item Value Reference Range Interpretation Comments Iron (test code = 51 See_Comment [Automate d message] The [facility]8-4) system which ge nerated this result transmit kaylie reference range : 37 - 145 mcg/dL. The ref erence range was not used to interpret this result as normal/abnormal . [facility]2023-04-09 13:25:20 Test Item Value Reference Range Interpretation Comments Iron (test code = 51 See_Comment [Automate d message] The [facility]8-4) system which ge nerated this result transmit kaylie reference range : 37 - 145 mcg/dL. The ref erence range was not used to interpret this result as normal/abnormal . [facility]2023-04-09 13:25:20 Test Item Value Reference Range Interpretation Comments Iron (test code = 51 See_Comment [Automate d message] The 2498-4) system which ge nerated this result transmit kaylie reference range : 37 - 145 mcg/dL. The ref erence range was not used to interpret this result as normal/abnormal . [facility]2023-04-09 13:25:20 Test Item Value Reference Range Interpretation Comments Iron (test code = 51 See_Comment [Automate d message] The [facility]) system which ge nerated this result transmit kaylie reference range : 37 - 145 mcg/dL. The ref erence range was not used to interpret this result as normal/abnormal . [facility]2023-04-09 13:25:20 Test Item Value Reference Range Interpretation Comments Iron (test code = 51 See_Comment [Automate d message] The 2498-4) system which ge nerated this result transmit kaylie reference range : 37 - 145 mcg/dL. The ref erence range was not used to interpret this result as normal/abnormal . [facility]2023-04-09 13:25:20 Test Item Value Reference Range Interpretation Comments Iron (test code = 51 See_Comment [Automate d message] The 2498-4) system which ge nerated this result transmit kaylie reference range : 37 - 145 mcg/dL. The ref erence range was not used to interpret this result as normal/abnormal . [facility]2023-04-09 13:25:20 Test Item Value Reference Range Interpretation Comments Iron (test code = 51 See_Comment [Automate d message] The 2498-4) system which ge nerated this result transmit kaylie reference range : 37 - 145 mcg/dL. The ref erence range was not used to interpret this result as normal/abnormal . [facility]2023-04-09 13:25:20 Test Item Value Reference Range Interpretation Comments Iron (test code = 51 See_Comment [Automate d message] The 2498-4) system which ge nerated this result transmit kaylie reference range : 37 - 145 mcg/dL. The ref erence range was not used to interpret this result as normal/abnormal . [facility] [id number] 13:23:33 Test Item Value Reference Range Interpretation Comments Chol (test code = 137 mg/dL <=199 ATP III Cl assification 3-3) of Total Choles terol Primary Target of Therapy (in mg/dL):<200 Mluqycpsx035-43 9 Borderline high >=240 High Trig (test code = 184 mg/dL <=149 H ATP III Cl assification 2571-8) of Serum Trigly cerides Primary Target of Therapy (in mg/dL):<150 Kgiysb939-744 Borderline high 200-499 High>=500 Very highNon-fasting triglycerides > 200 mg/dL may be fo llowed up with a fasti ng Lipid Panel. Calculated LDL- C may be falsely decr eased when non-fastin g triglycerides > 200 mg/dL. HDL (test code = 27 mg/dL >=40 L 2085-07) LDL (test code = 73 mg/dL <=100 ATP III Cla ssification 65117-6) of LDL Choleste rol Primary Target of Therapy (in mg/dL):<100 Whgeusi608-238 Near optimal/above -575 Borderline high 160-189 High>=190 Very high VLDL (test code = 37 mg/dL 69319-0) Lab Interpretation Abnormal (test code = 11637-4) [facility] [id number] 13:23:33 Test Item Value Reference Range Interpretation Comments Chol (test code = 137 mg/dL <=199 ATP III Cl assification 2092-3) of Total Choles terol Primary Target of Therapy (in mg/dL):<200 Vowjmirod639-38 9 Borderline high >=240 High Trig (test code = 184 mg/dL <=149 H ATP III Cl assification 2571-8) of Serum Trigly cerides Primary Target of Therapy (in mg/dL):<150 Afhcre084-448 Borderline high 200-499 High>=500 Very highNon-fasting triglycerides > 200 mg/dL may be fo llowed up with a fasti ng Lipid Panel. Calculated LDL- C may be falsely decr eased when non-fastin g triglycerides > 200 mg/dL. HDL (test code = 27 mg/dL >=40 L 2085-07) LDL (test code = 73 mg/dL <=100 ATP III Cla ssification 75541-6) of LDL Choleste rol Primary Target of Therapy (in mg/dL):<100 Ohtmmra821-781 Near optimal/above fwxadmd403-654 Borderline high 160-189 High>=190 Very high VLDL (test code = 37 mg/dL 30870-3) Lab Interpretation Abnormal (test code = 24702-6) [facility] [id number] 13:23:33 Test Item Value Reference Range Interpretation Comments Chol (test code = 137 mg/dL <=199 ATP III Cl assification 2092-12) of Total Choles terol Primary Target of Therapy (in mg/dL):<200 Ntfymwdxx070-89 9 Borderline high >=240 High Trig (test code = 184 mg/dL <=149 H ATP III Cl assification 2571-06) of Serum Trigly cerides Primary Target of Therapy (in mg/dL):<150 Vftbxt463-472 Borderline high 200-499 High>=500 Very highNon-fasting triglycerides > 200 mg/dL may be fo llowed up with a fasti ng Lipid Panel. Calculated LDL- C may be falsely decr eased when non-fastin g triglycerides > 200 mg/dL. HDL (test code = 27 mg/dL >=40 L 2085-07) LDL (test code = 73 mg/dL <=100 ATP III Cla ssification 68305-9) of LDL Choleste rol Primary Target of Therapy (in mg/dL):<100 Cyukrem488-003 Near optimal/above lnahtda495-556 Borderline high 160-189 High>=190 Very high VLDL (test code = 37 mg/dL 39722-5) Lab Interpretation Abnormal (test code = 95268-5) [facility] [place] [id number] 13:23:33 Test Item Value Reference Range Interpretation Comments Chol (test code = 137 mg/dL <=199 ATP III Cl assification 2092-12) of Total Choles terol Primary Target of Therapy (in mg/dL):<200 Dkswxsiij421-38 9 Borderline high >=240 High Trig (test code = 184 mg/dL <=149 H ATP III Cl assification 2571-06) of Serum Trigly cerides Primary Target of Therapy (in mg/dL):<150 Agdtkd770-750 Borderline high 200-499 High>=500 Very highNon-fasting triglycerides > 200 mg/dL may be fo llowed up with a fasti ng Lipid Panel. Calculated LDL- C may be falsely decr eased when non-fastin g triglycerides > 200 mg/dL. HDL (test code = 27 mg/dL >=40 L 2085-07) LDL (test code = 73 mg/dL <=100 ATP III Cla ssification 09415-4) of LDL Choleste rol Primary Target of Therapy (in mg/dL):<100 Sxlmlgd951-650 Near optimal/above -509 Borderline high 160-189 High>=190 Very high VLDL (test code = 37 mg/dL 88089-5) Lab Interpretation Abnormal (test code = 28049-4) [facility] [id number] 13:23:33 Test Item Value Reference Range Interpretation Comments Chol (test code = 137 mg/dL <=199 ATP III Cl assification 2092-12) of Total Choles terol Primary Target of Therapy (in mg/dL):<200 Lnlbqucks459-15 9 Borderline high >=240 High Trig (test code = 184 mg/dL <=149 H ATP III Cl assification 2571-8) of Serum Trigly cerides Primary Target of Therapy (in mg/dL):<150 Obifmr952-597 Borderline high 200-499 High>=500 Very highNon-fasting triglycerides > 200 mg/dL may be fo llowed up with a fasti ng Lipid Panel. Calculated LDL- C may be falsely decr eased when non-fastin g triglycerides > 200 mg/dL. HDL (test code = 27 mg/dL >=40 L 2085-07) LDL (test code = 73 mg/dL <=100 ATP III Cla ssification 03826-9) of LDL Choleste rol Primary Target of Therapy (in mg/dL):<100 Ivqvmeg326-091 Near optimal/above wolpkqq501-616 Borderline high 160-189 High>=190 Very high VLDL (test code = 37 mg/dL 98272-2) Lab Interpretation Abnormal (test code = 78954-5) [facility] [id number] 13:23:33 Test Item Value Reference Range Interpretation Comments Chol (test code = 137 mg/dL <=199 ATP III Cl assification 2092-12) of Total Choles terol Primary Target of Therapy (in mg/dL):<200 Qhzprcawm164-28 9 Borderline high >=240 High Trig (test code = 184 mg/dL <=149 H ATP III Cl assification 2571-8) of Serum Trigly cerides Primary Target of Therapy (in mg/dL):<150 Obrifp519-016 Borderline high 200-499 High>=500 Very highNon-fasting triglycerides > 200 mg/dL may be fo llowed up with a fasti ng Lipid Panel. Calculated LDL- C may be falsely decr eased when non-fastin g triglycerides > 200 mg/dL. HDL (test code = 27 mg/dL >=40 L 2084-) LDL (test code = 73 mg/dL <=100 ATP III Cla ssification 81288-8) of LDL Choleste rol Primary Target of Therapy (in mg/dL):<100 Jaawanz337-880 Near optimal/above -267 Borderline high 160-189 High>=190 Very high VLDL (test code = 37 mg/dL 02627-2) Lab Interpretation Abnormal (test code = 31668-8) [facility] [id number] 13:23:33 Test Item Value Reference Range Interpretation Comments Chol (test code = 137 mg/dL <=199 ATP III Cl assification 2092-12) of Total Choles terol Primary Target of Therapy (in mg/dL):<200 Kqbolsojl700-69 9 Borderline high >=240 High Trig (test code = 184 mg/dL <=149 H ATP III Cl assification 2571-8) of Serum Trigly cerides Primary Target of Therapy (in mg/dL):<150 Ojdhbc579-731 Borderline high 200-499 High>=500 Very highNon-fasting triglycerides > 200 mg/dL may be fo llowed up with a fasti ng Lipid Panel. Calculated LDL- C may be falsely decr eased when non-fastin g triglycerides > 200 mg/dL. HDL (test code = 27 mg/dL >=40 L 2085-07) LDL (test code = 73 mg/dL <=100 ATP III Cla ssification 59122-3) of LDL Choleste rol Primary Target of Therapy (in mg/dL):<100 Onkpjcz508-092 Near optimal/above icpmysf482-927 Borderline high 160-189 High>=190 Very high VLDL (test code = 37 mg/dL 39497-2) Lab Interpretation Abnormal (test code = 86546-2) [facility] [id number] 13:23:33 Test Item Value Reference Range Interpretation Comments Chol (test code = 137 mg/dL <=199 ATP III Cl assification 2092-3) of Total Choles terol Primary Target of Therapy (in mg/dL):<200 Aposqpfkj127-89 9 Borderline high >=240 High Trig (test code = 184 mg/dL <=149 H ATP III Cl assification 2571-8) of Serum Trigly cerides Primary Target of Therapy (in mg/dL):<150 Sjotqp877-829 Borderline high 200-499 High>=500 Very highNon-fasting triglycerides > 200 mg/dL may be fo llowed up with a fasti ng Lipid Panel. Calculated LDL- C may be falsely decr eased when non-fastin g triglycerides > 200 mg/dL. HDL (test code = 27 mg/dL >=40 L 2085-9) LDL (test code = 73 mg/dL <=100 ATP III Cla ssification 55883-5) of LDL Choleste rol Primary Target of Therapy (in mg/dL):<100 Ibxasoq776-720 Near optimal/above jlzkivq779-966 Borderline high 160-189 High>=190 Very high VLDL (test code = 37 mg/dL 65332-3) Lab Interpretation Abnormal (test code = 02787-0) [facility] [id number] 12:22:20 Test Item Value Reference Range Interpretation Comments A1C (test code = 4548-4) 10.2 % 4.3-5.6 H HbA 1c values >=6.5% are diagnostic of diabetes mellitus.Diagno sis should be confi rmed by repeat testing.Therape utic Action suggeste d: >8.0% HbA1c; Go al oftherapy: <7.0 % HbA1c Lab Interpretation (test Abnormal code = 44190-2) [facility] [id number] 12:22:20 Test Item Value Reference Range Interpretation Comments A1C (test code = 4548-4) 10.2 % 4.3-5.6 H HbA 1c values >=6.5% are diagnostic of diabetes mellitus.Diagno sis should be confi rmed by repeat testing.Therape utic Action suggeste d: >8.0% HbA1c; Go al oftherapy: <7.0 % HbA1c Lab Interpretation (test Abnormal code = 35926-3) [facility] [id number] 12:22:20 Test Item Value Reference Range Interpretation Comments A1C (test code = 4548-4) 10.2 % 4.3-5.6 H HbA 1c values >=6.5% are diagnostic of diabetes mellitus.Diagno sis should be confi rmed by repeat testing.Therape utic Action suggeste d: >8.0% HbA1c; Go al oftherapy: <7.0 % HbA1c Lab Interpretation (test Abnormal code = 77300-9) [facility] [id number] 12:22:20 Test Item Value Reference Range Interpretation Comments A1C (test code = 4548-4) 10.2 % 4.3-5.6 H HbA 1c values >=6.5% are diagnostic of diabetes mellitus.Diagno sis should be confi rmed by repeat testing.Therape utic Action suggeste d: >8.0% HbA1c; Go al oftherapy: <7.0 % HbA1c Lab Interpretation (test Abnormal code = 14497-7) [facility] [id number] 12:22:20 Test Item Value Reference Range Interpretation Comments A1C (test code = 4548-4) 10.2 % 4.3-5.6 H HbA 1c values >=6.5% are diagnostic of diabetes mellitus.Diagno sis should be confi rmed by repeat testing.Therape utic Action suggeste d: >8.0% HbA1c; Go al oftherapy: <7.0 % HbA1c Lab Interpretation (test Abnormal code = 63439-2) [facility] [id number] 12:22:20 Test Item Value Reference Range Interpretation Comments A1C (test code = 4548-4) 10.2 % 4.3-5.6 H HbA 1c values >=6.5% are diagnostic of diabetes mellitus.Diagno sis should be confi rmed by repeat testing.Therape utic Action suggeste d: >8.0% HbA1c; Go al oftherapy: <7.0 % HbA1c Lab Interpretation (test Abnormal code = 96141-6) [facility] [id number] 12:22:20 Test Item Value Reference Range Interpretation Comments A1C (test code = 4548-4) 10.2 % 4.3-5.6 H HbA 1c values >=6.5% are diagnostic of diabetes mellitus.Diagno sis should be confi rmed by repeat testing.Therape utic Action suggeste d: >8.0% HbA1c; Go al oftherapy: <7.0 % HbA1c Lab Interpretation (test Abnormal code = 09727-3) [facility] [id number] 12:22:20 Test Item Value Reference Range Interpretation Comments A1C (test code = 4548-4) 10.2 % 4.3-5.6 H HbA 1c values >=6.5% are diagnostic of diabetes mellitus.Diagno sis should be confi rmed by repeat testing.Therape utic Action suggeste d: >8.0% HbA1c; Go al oftherapy: <7.0 % HbA1c Lab Interpretation (test Abnormal code = 38976-3) [facility] 17:26:26 Test Item Value Reference Range Interpretation Comments CRP (test code = 65.62 mg/[place] [address]-4) CRP assay are a s follows: Reference range s when used to assess cardi ac risk: <1.00 mg/L Low cardiovascular risk 1.00-3.00 mg/L Average cardiovascular risk >3.00 mg/L High cardi ovascular risk.Reference ranges when used to assess inflammatory re sponses: Less than or eq ual to 10.00 mg/L. [facility] 17:26:26 Test Item Value Reference Range Interpretation Comments CRP (test code = 65.62 mg/[place] [address]-4) CRP assay are a s follows: Reference range s when used to assess cardi ac risk: <1.00 mg/L Low cardiovascular risk 1.00-3.00 mg/L Average cardiovascular risk >3.00 mg/L High cardi ovascular risk.Reference ranges when used to assess inflammatory re sponses: Less than or eq ual to 10.00 mg/L. [facility] 17:26:26 Test Item Value Reference Range Interpretation Comments CRP (test code = 65.62 mg/[place] [address]-8) CRP assay are a s follows: Reference range s when used to assess cardi ac risk: <1.00 mg/L Low cardiovascular risk 1.00-3.00 mg/L Average cardiovascular risk >3.00 mg/L High cardi ovascular risk.Reference ranges when used to assess inflammatory re sponses: Less than or eq ual to 10.00 mg/L. [facility]26 Test Item Value Reference Range Interpretation Comments CRP (test code = 65.62 mg/[place] [address]-8) CRP assay are a s follows: Reference range s when used to assess cardi ac risk: <1.00 mg/L Low cardiovascular risk 1.00-3.00 mg/L Average cardiovascular risk >3.00 mg/L High cardi ovascular risk.Reference ranges when used to assess inflammatory re sponses: Less than or eq ual to 10.00 mg/L. [place] [id number] 17:26:26 Test Item Value Reference Range Interpretation Comments CRP (test code = 65.62 mg/[place] [address]-2) CRP assay are a s follows: Reference range s when used to assess cardi ac risk: <1.00 mg/L Low cardiovascular risk 1.00-3.00 mg/L Average cardiovascular risk >3.00 mg/L High cardi ovascular risk.Reference ranges when used to assess inflammatory re sponses: Less than or eq ual to 10.00 mg/L. [facility] 17:26:26 Test Item Value Reference Range Interpretation Comments CRP (test code = 65.62 mg/[place] [address]-0) CRP assay are a s follows: Reference range s when used to assess cardi ac risk: <1.00 mg/L Low cardiovascular risk 1.00-3.00 mg/L Average cardiovascular risk >3.00 mg/L High cardi ovascular risk.Reference ranges when used to assess inflammatory re sponses: Less than or eq ual to 10.00 mg/L. [place] [id number] 17:26:26 Test Item Value Reference Range Interpretation Comments CRP (test code = 65.62 mg/[place] [address]-3) CRP assay are a s follows: Reference range s when used to assess cardi ac risk: <1.00 mg/L Low cardiovascular risk 1.00-3.00 mg/L Average cardiovascular risk >3.00 mg/L High cardi ovascular risk.Reference ranges when used to assess inflammatory re sponses: Less than or eq ual to 10.00 mg/L. [facility] 17:26:26 Test Item Value Reference Range Interpretation Comments CRP (test code = 65.62 mg/[place] [address]-6) CRP assay are a s follows: Reference range s when used to assess cardi ac risk: <1.00 mg/L Low cardiovascular risk 1.00-3.00 mg/L Average cardiovascular risk >3.00 mg/L High cardi ovascular risk.Reference ranges when used to assess inflammatory re sponses: Less than or eq ual to 10.00 mg/L. [facility]2023-02-06 17:14:43 Test Item Value Reference Range Interpretation Comments NT ProBNP (test code = 94553-6) 83 pg/mL <=125 [facility]2023-02-06 17:14:43 Test Item Value Reference Range Interpretation Comments NT ProBNP (test code = 82858-0) 83 pg/mL <=125 [facility]2023-02-06 17:14:43 Test Item Value Reference Range Interpretation Comments NT ProBNP (test code = 79704-3) 83 pg/mL <=125 [facility]2023-02-06 17:14:43 Test Item Value Reference Range Interpretation Comments NT ProBNP (test code = 85075-9) 83 pg/mL <=125 [facility]2023-02-06 17:14:43 Test Item Value Reference Range Interpretation Comments NT ProBNP (test code = 81069-8) 83 pg/mL <=125 [facility]2023-02-06 17:14:43 Test Item Value Reference Range Interpretation Comments NT ProBNP (test code = 31060-4) 83 pg/mL <=125 [facility]2023-02-06 17:14:43 Test Item Value Reference Range Interpretation Comments NT ProBNP (test code = 70655-3) 83 pg/mL <=125 [facility]2023-02-06 17:14:43 Test Item Value Reference Range Interpretation Comments NT ProBNP (test code = 08950-1) 83 pg/mL <=125 [facility]2023-02-06 06:39:52 Test Item Value Reference Range Interpretation Comments Troponin T (test code 10 ng/L <=19 < 19 n g/L Suggest retest = 35967-3) at 3 to 6 hours later to [...] interfere nces and falsely low res ults. [facility]2023-02-06 06:39:52 Test Item Value Reference Range Interpretation Comments Troponin T (test code 10 ng/L <=19 < 19 n g/L Suggest retest = 36705-3) at 3 to 6 hours later to [...] interfere nces and falsely low res ults. [facility]2023-02-06 06:39:52 Test Item Value Reference Range Interpretation Comments Troponin T (test code 10 ng/L <=19 < 19 n g/L Suggest retest = 81108-8) at 3 to 6 hours later to [...] interfere nces and falsely low res ults. [facility]2023-02-06 06:39:52 Test Item Value Reference Range Interpretation Comments Troponin T (test code 10 ng/L <=19 < 19 n g/L Suggest retest = 11179-1) at 3 to 6 hours later to [...] interfere nces and falsely low res ults. [facility]2023-02-06 06:39:52 Test Item Value Reference Range Interpretation Comments Troponin T (test code 10 ng/L <=19 < 19 n g/L Suggest retest = 75579-8) at 3 to 6 hours later to rule out myocar dial infarction >= 1 9 to <=52 ng/L Possible myocardial injury. Suggest retest at 3 hours. [...] interfere nces and falsely low res ults. [facility]2023-02-06 06:39:52 Test Item Value Reference Range Interpretation Comments Troponin T (test code 10 ng/L <=19 < 19 n g/L Suggest retest = 19161-8) at 3 to 6 hours later to [...] interfere nces and falsely low res ults. [facility]2023-02-06 06:39:52 Test Item Value Reference Range Interpretation Comments Troponin T (test code 10 ng/L <=19 < 19 n g/L Suggest retest = 42182-0) at 3 to 6 hours later to [...] interfere nces and falsely low res ults. [facility]2023-02-06 06:39:52 Test Item Value Reference Range Interpretation Comments Troponin T (test code 10 ng/L <=19 < 19 n g/L Suggest retest = 09246-1) at 3 to 6 hours later to [...] interfere nces and falsely low res ults. [facility]opic 2023-02-06 05:50:41 Test Item Value Reference Range Interpretation Comments UA Color (test code = [place] Straw-Yellow A 46484-6) UA Appear (test code = Cloudy Clear A 36586-9) UA Glucose (test code 500 mg/dL NEG [...] = NOT SEEN See_Comment Some rep orting 60608-4) parameters with in the Urinalysis test have changed due to the implementation of new instrumentation in the [facility] [place] sens[place]ity of measurement. Urinalysis resu lts reported by the [facility] enters using existing instrumentation , as well as Urinaly sis testing perform ed manually or by backup methodology at the [facility] chino l remain relative ly unchanged. [...] = 13 See_Comment H [Automa kaylie message] 79708-9) The system iSites generated this result transmitted ref erence range: 0 - 2 /H PF. The reference range was not used to int erpret this result as normal/abnormal . UA Mucous (test code = NOT SEEN Not Seen-Trace 00364-2) /HPF UA Bacteria (test code NOT SEEN NOT SEEN /HPF = 37016-1) UA Squam Epi (test OCC None-Occasional code = 91903-7) /HPF Lab Interpretation Abnormal (test code = 08759-3) [facility] [place] 2023-02-06 05:50:41 Test Item Value Reference Range Interpretation Comments UA Color (test code = [place] Straw-Yellow A 75798-6) UA Appear (test code = Cloudy Clear A 89614-6) UA Glucose (test code 500 mg/dL NEG [...] = NOT SEEN See_Comment Some rep orting 58207-0) parameters with in the Urinalysis test have changed due to the implementation of new instrumentation in the [facility], [facility] greater sensiti vity of measurement. Urinalysis resu lts reported by the [facility] enters using existing instrumentation , as well as Urinaly sis testing perform ed manually or by backup methodology at the [facility] chino l remain relative ly unchanged. New reporting asha eters and units will not be reported for [facility]. [Auto mated message] The sy stem which generated this result transmit kaylie reference range : 0 - 2 /HPF. The refer ence range was not u sed to interpret this result as normal/abnor mal. UA RBC (test code = 13 See_Comment H [Automa kaylie message] 22485-3) The system iSites generated this result transmitted ref erence range: 0 - 2 /H PF. The reference range was not used to int erpret this result as normal/abnormal . UA Mucous (test code = NOT SEEN Not Seen-Trace 79258-2) /HPF UA Bacteria (test code NOT SEEN NOT SEEN /HPF = 08583-9) UA Squam Epi (test OCC None-Occasional code = 19352-0) /HPF Lab Interpretation Abnormal (test code = 21036-2) [facility] [place] 2023-02-06 05:50:41 Test Item Value Reference Range Interpretation Comments UA Color (test code = [place] Straw-Yellow A 36984-9) UA Appear (test code = Cloudy Clear A 53983-3) UA Glucose (test code 500 mg/dL NEG [...] = NOT SEEN See_Comment Some rep orting 56228-9) parameters with in the Urinalysis test have changed due to the implementation of new instrumentation in the [facility], [facility] greater sensiti vity of measurement. Urinalysis resu lts reported by the [facility] enters using existing instrumentation , as well as Urinaly sis testing perform ed manually or by backup methodology at the [facility] l remain relative ly unchanged. New reporting asha eters and units will not be reported for [facility]. [Auto mated message] The sy stem which generated this result transmit kaylie reference range : 0 - 2 /HPF. The refer ence range was not u sed to interpret this result as normal/abnor mal. UA RBC (test code = 13 See_Comment H [Automa kaylie message] 44440-5) The system iSites generated this result transmitted ref erence range: 0 - 2 /H PF. The reference range was not used to int erpret this result as normal/abnormal . UA Mucous (test code = NOT SEEN Not Seen-Trace 87885-8) /HPF UA Bacteria (test code NOT SEEN NOT SEEN /HPF = 49041-2) UA Squam Epi (test OCC None-Occasional code = 30186-2) /HPF Lab Interpretation Abnormal (test code = 11338-3) [facility] [place] 2023-02-06 05:50:41 Test Item Value Reference Range Interpretation Comments UA Color (test code = [place] Straw-Yellow A 16815-9) UA Appear (test code = Cloudy Clear A 63991-0) UA Glucose (test code 500 mg/dL NEG [...] = NOT SEEN See_Comment Some rep orting 28802-7) parameters with in the Urinalysis test have changed due to the implementation of new instrumentation in the [facility], [facility] greater sensiti vity of measurement. Urinalysis resu lts reported by the [facility] enters using existing instrumentation , as well as Urinaly sis testing perform ed manually or by backup methodology at the [facility] l remain relative ly unchanged. New reporting asha eters and units will not be reported for [facility]. [Auto mated message] The sy stem which generated this result transmit kaylie reference range : 0 - 2 /HPF. The refer ence range was not u sed to interpret this result as normal/abnor mal. UA RBC (test code = 13 See_Comment H [Automa kaylie message] 98467-6) The system iSites generated this result transmitted ref erence range: 0 - 2 /H PF. The reference range was not used to int erpret this result as normal/abnormal . UA Mucous (test code = NOT SEEN Not Seen-Trace 20505-3) /HPF UA Bacteria (test code NOT SEEN NOT SEEN /HPF = 73740-6) UA Squam Epi (test OCC None-Occasional code = 45468-0) /HPF Lab Interpretation Abnormal (test code = 44837-1) [facility] [place] 2023-02-06 05:50:41 Test Item Value Reference Range Interpretation Comments UA Color (test code = [place] Straw-Yellow A 24880-5) UA Appear (test code = Cloudy Clear A 68531-6) UA Glucose (test code 500 mg/dL NEG [...] = NOT SEEN See_Comment Some rep orting 67215-6) parameters with in the Urinalysis test have changed due to the implementation of new instrumentation in the [facility], [facility] greater sensiti vity of measurement. Urinalysis resu lts reported by the [facility] C enters using existing instrumentation , as well as Urinaly sis testing perform ed manually or by backup methodology at the [facility] chino l remain relative ly unchanged. New reporting asha eters and units will not be reported for [facility]. [Auto mated message] The sy stem which generated this result transmit kaylie reference range : 0 - 2 /HPF. The refer ence range was not u sed to interpret this result as normal/abnor mal. UA RBC (test code = 13 See_Comment H [Automa kaylie message] 60692-5) The system iSites generated this result transmitted ref erence range: 0 - 2 /H PF. The reference range was not used to int erpret this result as normal/abnormal . UA Mucous (test code = NOT SEEN Not Seen-Trace 53022-3) /HPF UA Bacteria (test code NOT SEEN NOT SEEN /HPF = 40041-2) UA Squam Epi (test OCC None-Occasional code = 24760-3) /HPF Lab Interpretation Abnormal (test code = 64112-5) [facility] [place] [facility] 2023-02-06 05:50:41 Test Item Value Reference Range Interpretation Comments UA Color (test code = [place] Straw-Yellow A 72352-8) UA Appear (test code = Cloudy Clear A 96289-8) UA Glucose (test code 500 mg/dL NEG [...] = NOT SEEN See_Comment Some rep orting 88395-7) parameters with in the Urinalysis test have changed due to the implementation of new instrumentation in the [facility] [place] greater sensiti vity of measurement. Urinalysis resu lts reported by the [facility] enters using existing instrumentation , as well as Urinaly sis testing perform ed manually or by backup methodology at the [facility] chino l remain relative ly unchanged. New reporting asha eters and units will not be reported for [facility]. [Auto mated message] The sy stem which generated this result transmit kaylie reference range : 0 - 2 /HPF. The refer ence range was not u sed to interpret this result as normal/abnor mal. UA RBC (test code = 13 See_Comment H [Automa kaylie message] 82895-4) The system iSites generated this result transmitted ref erence range: 0 - 2 /H PF. The reference range was not used to int erpret this result as normal/abnormal . UA Mucous (test code = NOT SEEN Not Seen-Trace 36899-3) /HPF UA Bacteria (test code NOT SEEN NOT SEEN /HPF = 01592-8) UA Squam Epi (test OCC None-Occasional code = 14204-2) /HPF Lab Interpretation Abnormal (test code = 05017-9) [facility] [place] 2023-02-06 05:50:41 Test Item Value Reference Range Interpretation Comments UA Color (test code = [place] Straw-Yellow A 01800-6) UA Appear (test code = Cloud[place] Clear A 98959-5) UA Glucose (test code 500 mg/dL NEG [...] = NOT SEEN See_Comment Some rep orting 77252-1) parameters with in the Urinalysis test have changed due to the implementation of new instrumentation in the [facility] [place] greater sensiti vity of measurement. Urinalysis resu lts reported by the [facility] enters using existing instrumentation , as well as Urinaly sis testing perform ed manually or by backup methodology at the [facility] chino l remain relative ly unchanged. New reporting asha eters and units will not be reported for [facility]. [Auto mated message] The sy stem which generated this result transmit kaylie reference range : 0 - 2 /HPF. The refer ence range was not u sed to interpret this result as normal/abnor mal. UA RBC (test code = 13 See_Comment H [Automa kaylie message] 00241-0) The system iSites generated this result transmitted ref erence range: 0 - 2 /H PF. The reference range was not used to int erpret this result as normal/abnormal . UA Mucous (test code = NOT SEEN Not Seen-Trace 10108-4) /HPF UA Bacteria (test code NOT SEEN NOT SEEN /HPF = 18165-9) UA Squam Epi (test OCC None-Occasional code = 39940-7) /HPF Lab Interpretation Abnormal (test code = 77786-6) [facility] [place] [place] [facility] 2023-02-06 05:50:41 Test Item Value Reference Range Interpretation Comments UA Color (test code = [place] Straw-Yellow A 76960-9) UA Appear (test code = Cloudy Clear A 80488-8) UA Glucose (test code 500 mg/dL NEG [...] = NOT SEEN See_Comment Some rep orting 11071-3) parameters with in the Urinalysis test have changed due to the implementation of new instrumentation in the [facility], [facility] greater sensiti vity of measurement. Urinalysis resu lts reported by the [facility] enters using existing instrumentation , as well as Urinaly sis testing perform ed manually or by backup methodology at the [facility] chino l remain relative ly unchanged. New reporting asha eters and units will not be reported for [facility]. [Auto mated message] The sy stem which generated this result transmit kaylie reference range : 0 - 2 /HPF. The refer ence range was not u sed to interpret this result as normal/abnor mal. UA RBC (test code = 13 See_Comment H [Automa kaylie message] 00265-1) The system [employer] h generated this result transmitted ref erence range: 0 - 2 /H PF. The reference range was not used to int erpret this result as normal/abnormal . UA Mucous (test code = NOT SEEN Not Seen-Trace 32417-8) /HPF UA Bacteria (test code NOT SEEN NOT SEEN /HPF = 80463-0) UA Squam Epi (test OCC None-Occasional code = 45520-0) /HPF Lab Interpretation Abnormal (test code = 35291-2) [facility] [id number] 02:32:47 Test Item Value Reference Range Interpretation Comments aPTT (test code = 28.5 See_Comment [Automate d message] The 70565-9) system which ge nerated this result transmit kaylie reference range : 22.8 - 34.2 second(s). The reference range was not used to interpr et this result as diane l/abnormal. [facility] 02:32:47 Test Item Value Reference Range Interpretation Comments aPTT (test code = 28.5 See_Comment [Automate d message] The 50011-8) system which ge nerated this result transmit kaylie reference range : 22.8 - 34.2 second(s). The reference range was not used to interpr et this result as diane l/abnormal. [facility] 02:32:47 Test Item Value Reference Range Interpretation Comments aPTT (test code = 28.5 See_Comment [Automate d message] The 94168-3) system which ge nerated this result transmit kaylie reference range : 22.8 - 34.2 second(s). The reference range was not used to interpr et this result as diane l/abnormal. [facility] 02:32:47 Test Item Value Reference Range Interpretation Comments aPTT (test code = 28.5 See_Comment [Automate d message] The 93875-4) system which ge nerated this result transmit kaylie reference range : 22.8 - 34.2 second(s). The reference range was not used to interpr et this result as diane l/abnormal. [facility] 02:32:47 Test Item Value Reference Range Interpretation Comments aPTT (test code = 28.5 See_Comment [Automate d message] The 72827-7) system which ge nerated this result transmit kaylie reference range : 22.8 - 34.2 second(s). The reference range was not used to interpr et this result as diane l/abnormal. [facility] 02:32:47 Test Item Value Reference Range Interpretation Comments aPTT (test code = 28.5 See_Comment [Automate d message] The 61945-9) system which ge nerated this result transmit kaylie reference range : 22.8 - 34.2 second(s). The reference range was not used to interpr et this result as diane l/abnormal. [facility] 02:32:47 Test Item Value Reference Range Interpretation Comments aPTT (test code = 28.5 See_Comment [Automate d message] The 67122-2) system which ge nerated this result transmit kaylie reference range : 22.8 - 34.2 second(s). The reference range was not used to interpr et this result as diane l/abnormal. [facility] 02:32:47 Test Item Value Reference Range Interpretation Comments aPTT (test code = 28.5 See_Comment [Automate d message] The 30917-0) system which ge nerated this result transmit kaylie reference range : 22.8 - 34.2 second(s). The reference range was not used to interpr et this result as diane l/abnormal. [facility]villeProthrombin Time with [id number] 02:32:46 Test Item Value Reference Range Interpretation Comments PT (test code = 5902-2) 14.7 See_Comment H [Au tomated message] The system iSites generated this result transmitted ref erence range: 11.9 - 1 4.1 second(s). The reference range was not used to int erpret this result as normal/abnormal . INR (test code = 6301-6) 1.16 0.89-1.10 H Lab Interpretation (test Abnormal code = 94382-2) [facility]villeProth[facility] Time with [id number] 02:32:46 Test Item Value Reference Range Interpretation Comments PT (test code = 5902-2) 14.7 See_Comment H [Au tomated message] The system iSites generated this result transmitted ref erence range: 11.9 - 1 4.1 second(s). The reference range was not used to int erpret this result as normal/abnormal . INR (test code = 6301-6) 1.16 0.89-1.10 H Lab Interpretation (test Abnormal code = 83565-2) [facility] [id number] 02:32:46 Test Item Value Reference Range Interpretation Comments PT (test code = 5902-2) 14.7 See_Comment H [Au tomated message] The system whic h generated this result transmitted ref erence range: 11.9 - 1 4.1 second(s). The reference range was not used to int erpret this result as normal/abnormal . INR (test code = 6301-6) 1.16 0.89-1.10 H Lab Interpretation (test Abnormal code = 27375-2) [facility] [id number] 02:32:46 Test Item Value Reference Range Interpretation Comments PT (test code = 5902-2) 14.7 See_Comment H [Au tomated message] The system i[employer] generated this result transmitted ref erence range: 11.9 - 1 4.1 second(s). The reference range was not used to int erpret this result as normal/abnormal . INR (test code = 6301-6) 1.16 0.89-1.10 H Lab Interpretation (test Abnormal code = 35785-0) [facility] with [id number] 02:32:46 Test Item Value Reference Range Interpretation Comments PT (test code = 5902-2) 14.7 See_Comment H [Au tomated message] The system i[employer] generated this result transmitted ref erence range: 11.9 - 1 4.1 second(s). The reference range was not used to int erpret this result as normal/abnormal . INR (test code = 6301-6) 1.16 0.89-1.10 H Lab Interpretation (test Abnormal code = 50071-0) [facility] [id number] 02:32:46 Test Item Value Reference Range Interpretation Comments PT (test code = 5902-2) 14.7 See_Comment H [Au tomated message] The system i[employer] generated this result transmitted ref erence range: 11.9 - 1 4.1 second(s). The reference range was not used to int erpret this result as normal/abnormal . INR (test code = 6301-6) 1.16 0.89-1.10 H Lab Interpretation (test Abnormal code = 42594-3) [facility] [id number] 02:32:46 Test Item Value Reference Range Interpretation Comments PT (test code = 5902-2) 14.7 See_Comment H [Au tomated message] The system i[employer] generated this result transmitted ref erence range: 11.9 - 1 4.1 second(s). The reference range was not used to int erpret this result as normal/abnormal . INR (test code = 6301-6) 1.16 0.89-1.10 H Lab Interpretation (test Abnormal code = 48585-4) [facility] [place] [id number] 02:32:46 Test Item Value Reference Range Interpretation Comments PT (test code = 5902-2) 14.7 See_Comment H [Au tomated message] The system i[employer] generated this result transmitted ref erence range: 11.9 - 1 4.1 second(s). The reference range was not used to int erpret this result as normal/abnormal . INR (test code = 6301-6) 1.16 0.89-1.10 H Lab Interpretation (test Abnormal code = 78602-5) [facility] [place] [id number] 02:32:45 Test Item Value Reference Range Interpretation Comments D-Dimer (test code = 3.04 See_Comment H [place] [address]-3) exclusion of ve nous thromboembolism is <0.51 mcg/mL FEUs (fi brinogen equivalent unit s). [Automated mess age] The system which ge nerated this result tra nsmitted reference range : 0.10 - 0.50 mcg/ml FEU . The reference range was not used to interpr et this result as normal/abnormal . Lab Interpretation Abnormal (test code = 49732-1) [facility] [id number] 02:32:45 Test Item Value Reference Range Interpretation Comments D-Dimer (test code = 3.04 See_Comment H [place] [address]-8) exclusion of ve nous thromboembolism is <0.51 mcg/mL FEUs (fi brinogen equivalent unit s). [Automated mess age] The system which ge nerated this result tra nsmitted reference range : 0.10 - 0.50 mcg/ml FEU . The reference range was not used to interpr et this result as normal/abnormal . Lab Interpretation Abnormal (test code = 63500-1) [facility] [id number] 02:32:45 Test Item Value Reference Range Interpretation Comments D-Dimer (test code = 3.04 See_Comment H [place] [address]-0) exclusion of ve nous thromboembolism is <0.51 mcg/mL FEUs (fi brinogen equivalent unit s). [Automated Adim8 age] The system which ge nerated this result tra nsmitted reference range : 0.10 - 0.50 mcg/ml FEU . The reference range was not used to interpr et this result as normal/abnormal . Lab Interpretation Abnormal (test code = 53860-3) [facility] [id number] 02:32:45 Test Item Value Reference Range Interpretation Comments D-Dimer (test code = 3.04 See_Comment H [place] [address]-0) exclusion of ve nous thromboembolism is <0.51 mcg/mL FEUs (fi brinogen equivalent unit s). [Automated mess age] The system which ge nerated this result tra nsmitted reference range : 0.10 - 0.50 mcg/ml FEU . The reference range was not used to interpr et this result as normal/abnormal . Lab Interpretation Abnormal (test code = 93954-1) [facility] [id number] 02:32:45 Test Item Value Reference Range Interpretation Comments D-Dimer (test code = 3.04 See_Comment H [place] 425[address]-0) exclusion of ve nous thromboembolism is <0.51 mcg/mL FEUs (fi brinogen equivalent unit s). [Automated mess age] The system which ge nerated this result tra nsmitted reference range : 0.10 - 0.50 mcg/ml FEU . The reference range was not used to interpr et this result as normal/abnormal . Lab Interpretation Abnormal (test code = 19088-4) [facility] [id number] 02:32:45 Test Item Value Reference Range Interpretation Comments D-Dimer (test code = 3.04 See_Comment H [place] [address]478-8) exclusion of ve nous thromboembolism is <0.51 mcg/mL FEUs (fi brinogen equivalent unit s). [Automated mess age] The system which ge nerated this result tra nsmitted reference range : 0.10 - 0.50 mcg/ml FEU . The reference range was not used to interpr et this result as normal/abnormal . Lab Interpretation Abnormal (test code = 04877-5) [facility] [id number] 02:32:45 Test Item Value Reference Range Interpretation Comments D-Dimer (test code = 3.04 See_Comment H [place] [address]-3) exclusion of ve nous thromboembolism is <0.51 mcg/mL FEUs (fi brinogen equivalent unit s). [Automated mess age] The system which ge nerated this result tra nsmitted reference range : 0.10 - 0.50 mcg/ml FEU . The reference range was not used to interpr et this result as normal/abnormal . Lab Interpretation Abnormal (test code = 61980-4) [facility] [id number] 02:32:45 Test Item Value Reference Range Interpretation Comments D-Dimer (test code = 3.04 See_Comment H [place] [address]-5) exclusion of ve nous thromboembolism is <0.51 mcg/mL FEUs (fi brinogen equivalent unit s). [Automated mess age] The system which ge nerated this result tra nsmitted reference range : 0.10 - 0.50 mcg/ml FEU . The reference range was not used to interpr et this result as normal/abnormal . Lab Interpretation Abnormal (test code = 82375-9) [facility] [place] [id number] 01:31:58 Test Item Value Reference Range Interpretation Comments V Lactate (test code = 2519-7) 1.2 mmol/L 0.5-1.6 [facility] [id number] 01:31:58 Test Item Value Reference Range Interpretation Comments V Lactate (test code = 2519-7) 1.2 mmol/L 0.5-1.6 [facility] [id number] 01:31:58 Test Item Value Reference Range Interpretation Comments V Lactate (test code = 2519-7) 1.2 mmol/L 0.5-1.6 [facility] [id number] 01:31:58 Test Item Value Reference Range Interpretation Comments V Lactate (test code = 2519-7) 1.2 mmol/L 0.5-1.6 [facility] [id number] 01:31:58 Test Item Value Reference Range Interpretation Comments V Lactate (test code = 2519-7) 1.2 mmol/L 0.5-1.6 [facility] [id number] 01:31:58 Test Item Value Reference Range Interpretation Comments V Lactate (test code = 2519-7) 1.2 mmol/L 0.5-1.6 [facility] [id number] 01:31:58 Test Item Value Reference Range Interpretation Comments V Lactate (test code = 2519-7) 1.2 mmol/L 0.5-1.6 [facility] [place] [id number] 01:31:58 Test Item Value Reference Range Interpretation Comments V Lactate (test code = 2519-7) 1.2 mmol/L 0.5-1.6 [facility]OVID-[facility] (SARS-CoV-2)Fwvyjjgqzfjp-[id number] 23:01:01 Test Item Value Reference Range Interpretation Comments COVID19 Not Detected Not Detected (SARS-CoV-2) (test code = 52241-4) COVID19 SARS Inpatient Indication (test Admission code = 94684) Covid 19 Comment See Note The ruby S ARS-CoV-2 (test code = [place] [address]) use on the jeanne s Chast[employer] System [...] sheet for patie nts provided by the bituminous distributor operator ([employer]) can be rev iewed at: https://www.fda .gov/m edia/317122/otf nload. A fact sheet fo r Health Care pro viders is provided by the bituminous distributor operator ([employer]) and can be reviewed at: https://www.fda .gov/m edia/870124/otf nload Results must be interpreted wit hin [...] high-comple xity tests. [facility], CLIA Accreditation #[id number] and CAP Accreditation #[id number], verif ied the performance characteristics of this assay. Int ernal controls are us ed to monitor all sta ges of the test proces s. [facility] ([facility]-2)[id number]-[id number] 23:01:01 Test Item Value Reference Range Interpretation Comments COVID19 Not Detected Not Detected (SARS-CoV-2) (test code = 61601-5) COVID19 SARS Inpatient Indication (test Admission code = 99517) Covid 19 Comment See Note The ruby S ARS-CoV-2 (test code = [place] [address]) use on the jeanne s Chastity System [...] sheet for patie nts provided by the bituminous distributor operator ([employer]) can be rev iewed at: https://www.fda .gov/m edia/347969/otf nload. A fact sheet fo r Health Care pro viders is provided by the bituminous distributor operator ([employer]) and can be reviewed at: https://www.fda .gov/m edia/961122/otf nload Results must be interpreted wit hin [...] high-comple xity tests. [facility], CLIA Accreditation #[id number] and CAP Accreditation #[id number], verif ied the performance characteristics of this assay. Int ernal controls are us ed to monitor all sta ges of the test proces s. [facility]-2)[id number]-[id number] 23:01:01 Test Item Value Reference Range Interpretation Comments COVID19 Not Detected Not Detected (SARS-CoV-2) (test code = 02645-5) COVID19 SARS Inpatient Indication (test Admission code = 32754) Covid 19 Comment See Note The ruby S ARS-CoV-2 (test code = [place] [address]) use on the jeanne s Chastity System [...] sheet for patie nts provided by the bituminous distributor operator ([employer]) can be rev iewed at: https://www.fda .gov/m edia/178106/otf nload. A fact sheet fo r Health Care pro viders is provided by the bituminous distributor operator ([employer]) and can be reviewed at: https://www.fda .gov/m edia/082635/otf nload Results must be interpreted wit hin [...] is assay has been authorized by t [facility] for use only un teetee Emergency Use Authorization ( EUA) in laboratories that have been CLIA-certified to perform moderate-comple xity and high-comple xity tests. [facility], CLIA Accreditation #[id number] and CAP Accreditation #[id number], verif ied the performance characteristics of this assay. Int ernal controls are us ed to monitor all sta ges of the test proces s. [facility]-2)[id number]-[id number] 23:01:01 Test Item Value Reference Range Interpretation Comments COVID19 Not Detected Not Detected (SARS-CoV-2) (test code = 49939-4) COVID19 SARS Inpatient Indication (test Admission code = 10713) Covid 19 Comment See Note The ruby S ARS-CoV-2 (test code = [place] [address]) use on the jeanne s Chastity System [...] sheet for patie nts provided by the bituminous distributor operator ([employer]) can be rev iewed at: https://www.fda .gov/m edia/491415/otf nload. A fact sheet fo r Health Care pro viders is provided by the bituminous distributor operator ([employer]) and can be reviewed at: https://www.fda .gov/m edia/571737/otf nload Results must be interpreted wit hin [...] is assay has been authorized by t [facility] for use only un teetee Emergency Use Authorization ( EUA) in laboratories that have been CLIA-certified to perform moderate-comple xity and high-comple xity tests. [facility], CLIA Accreditation #[id number] and CAP Accreditation #[id number], verif ied the performance characteristics of this assay. Int ernal controls are us ed to monitor all sta ges of the test proces s. [facility]-2)[id number]-[id number] 23:01:01 Test Item Value Reference Range Interpretation Comments COVID19 Not Detected Not Detected (SARS-CoV-2) (test code = 92885-1) COVID19 SARS Inpatient Indication (test Admission code = 71774) Covid 19 Comment See Note The ruby S ARS-CoV-2 (test code = [place] [address]) use on the jeanne s Chastity System [...] sheet for patie nts provided by the bituminous distributor operator ([employer]) can be rev iewed at: https://www.fda .gov/m edia/388678/otf nload. A fact sheet fo r Health Care pro viders is provided by the bituminous distributor operator ([employer]) and can be reviewed at: https://www.fda .gov/m edia/627962/otf nload Results must be interpreted wit hin [...] is assay has been authorized by t [facility] for use only un teet[place] Emergency Use Authorization ( EUA) in laboratories that have been CLIA-certified to perform moderate-comple xity and high-comple xity tests. [facility], CLIA Accreditation #[id number] and CAP Accreditation #[id number], verif ied the performance characteristics of this assay. Int ernal controls are us ed to monitor all sta ges of the test proces s. [facility]CoV-2)Bdtketpiqxkb-[id number] 23:01:01 Test Item Value Reference Range Interpretation Comments COVID19 Not Detected Not Detected (SARS-CoV-2) (test code = 10696-0) COVID19 SARS Inpatient Indication (test Admission code = 34591) Covid 19 Comment See Note The ruby S ARS-CoV-2 (test code = [place] [address]) use on the jeanne s Chastity System [...] sheet for patie nts provided by the bituminous distributor operator ([employer]) can be rev iewed at: https://www.fda .gov/m edia/567224/otf nload. A fact sheet fo r Health Care pro viders is provided by the bituminous distributor operator ([employer]) and can be reviewed at: https://www.fda .gov/m edia/576515/otf nload Results must be interpreted wit hin [...] is assay has been authorized by t [facility] for use only un teet[place] Emergency Use Authorization ( EUA) in laboratories that have been CLIA-certified to perform moderate-comple xity and high-comple xity tests. [facility], CLIA Accreditation #[id number] and CAP Accreditation #[id number], verif ied the performance characteristics of this assay. Int ernal controls are us ed to monitor all sta ges of the test proces s. [facility])Reutjlcfobns-[id number] 23:01:01 Test Item Value Reference Range Interpretation Comments COVID19 Not Detected Not Detected (SARS-CoV-2) (test code = 02858-0) COVID19 SARS Inpatient Indication (test Admission code = 62281) Covid 19 Comment See Note The ruby S ARS-CoV-2 (test code = [place] [address]) use on the jeanne s Chastity System [...] sheet for patie nts provided by the bituminous distributor operator ([employer]) can be rev iewed at: https://www.fda .gov/m edia/449392/otf nload. A fact sheet fo r Health Care pro viders is provided by the bituminous distributor operator ([employer]) and can be reviewed at: https://www.fda .gov/m edia/519604/otf nload Results must be interpreted wit hin [...] is assay has been authorized by t [facility] for use only un teetee Emergency Use Authorization ( EUA) in laboratories that have been CLIA-certified to perform moderate-comple xity and high-comple xity tests. [facility], CLIA Accreditation #[id number] and CAP Accreditation #[id number], verif ied the performance characteristics of this assay. Int ernal controls are ed to monitor all sta ges of the test proces s. [facility])[id number]-[id number] 23:01:01 Test Item Value Reference Range Interpretation Comments COVID19 Not Detected Not Detected (SARS-CoV-2) (test code = 17377-0) COVID19 SARS Inpatient Indication (test Admission code = 64441) Covid 19 Comment See Note The ruby S ARS-CoV-2 (test code = [place] [address]) use on the jeanne s Chastity System [...] sheet for patie nts provided by the bituminous distributor operator ([employer]) can be rev iewed at: https://www.fda .gov/m edia/713427/otf nload. A fact sheet fo r Health Care pro viders is provided by the bituminous distributor operator ([employer]) and can be reviewed at: https://www.fda .gov/m edia/233242/otf nload Results must be interpreted wit hin [...] high-comple xity tests. [facility], CLIA Accreditation #[id number] and CAP Accreditation #[id number], verif ied the performance characteristics of this assay. Int ernal controls are us ed to monitor all sta ges of the test proces s. [facility]2023-04-07 21:13:54CK MB<2.0<=5.3 ng/mLUT [facility]2023-04-07 21:13:54CK MB<2.0<=5.3 ng/mLUT [facility] 2023-02-05 21:13:54CK MB<2.0<=5.3 ng/mLUT [facility]2023-04-07 21:13:54CK MB<2.0<=5.3 ng/mLUT [facility]2023-04-07 21:13:54CK MB<2.0<=5.3 ng/mLUT [facility] 2023-02-05 21:13:54CK MB<2.0<=5.3 ng/mLUT [facility]2023-04-07 21:13:54CK MB<2.0<=5.3 ng/mLUT [facility]-07 21:13:54CK MB<2.0<=5.3 ng/mLUT [facility]Un[facility] CenterLip[facility] 2023-02-05 21:08:09 Test Item Value Reference Range Interpretation Comments Lipase Lvl (test code = 3040-3) 18 U/L [facility] 21:08:09 Test Item Value Reference Range Interpretation Comments Lipase Lvl (test code = 3040-3) 18 U/L -60 [facility]07 21:08:09 Test Item Value Reference Range Interpretation Comments Lipase Lvl (test code = 3040-3) 18 U/L [facility]07 21:08:09 Test Item Value Reference Range Interpretation Comments Lipase Lvl (test code = 3040-3) 18 U/L [facility]-07 21:08:09 Test Item Value Reference Range Interpretation Comments Lipase Lvl (test code = 3040-3) 18 U/L 60 [facility]-07 21:08:09 Test Item Value Reference Range Interpretation Comments Lipase Lvl (test code = 3040-3) 18 U/L [facility]07 21:08:09 Test Item Value Reference Range Interpretation Comments Lipase Lvl (test code = 3040-3) 18 U/L [facility]-07 21:08:09 Test Item Value Reference Range Interpretation Comments Lipase Lvl (test code = 3040-3) 18 U/L 60 [facility]villeAm[facility] [id number] 21:08:08 Test Item Value Reference Range Interpretation Comments Amylase Lvl (test code = 1798-8) 43 U/L 28-100 [facility] [id number] 21:08:08 Test Item Value Reference Range Interpretation Comments Amylase Lvl (test code = 1798-8) 43 U/L 28-100 [facility] [id number] 21:08:08 Test Item Value Reference Range Interpretation Comments Amylase Lvl (test code = 1798-8) 43 U/L 28-100 [facility]Am[facility] [id number] 21:08:08 Test Item Value Reference Range Interpretation Comments Amylase Lvl (test code = 1798-8) 43 U/L 28-100 [facility] [id number] 21:08:08 Test Item Value Reference Range Interpretation Comments Amylase Lvl (test code = 1798-8) 43 U/L 28-100 [facility] [id number] 21:08:08 Test Item Value Reference Range Interpretation Comments Amylase Lvl (test code = 1798-8) 43 U/L 28-100 [facility]Am[facility] Hukbi1601-02-32 21:08:08 Test Item Value Reference Range Interpretation Comments Amylase Lvl (test code = 1798-8) 43 U/L 28-100 [facility]Am[facility] [id number] 21:08:08 Test Item Value Reference Range Interpretation Comments Amylase Lvl (test code = 1798-8) 43 U/L 28-100 [facility]villeHematocrit2023-03-30 13:50:44 Test Item Value Reference Range Interpretation Comments Hct (test code = 4544-3) 40.6 % 37.0-47.0 [facility]2023-03-30 13:50:44 Test Item Value Reference Range Interpretation Comments Hct (test code = 4544-3) 40.6 % 37.0-47.0 [facility]Hematocrit2023-03-30 13:50:44 Test Item Value Reference Range Interpretation Comments Hct (test code = 4544-3) 40.6 % 37.0-47.0 [facility]Hematocrit2023-03-30 13:50:44 Test Item Value Reference Range Interpretation Comments Hct (test code = 4544-3) 40.6 % 37.0-47.0 [facility]ematocrit2023-03-30 13:50:44 Test Item Value Reference Range Interpretation Comments Hct (test code = 4544-3) 40.6 % 37.0-47.0 [facility]Hematocrit2023-03-30 13:50:44 Test Item Value Reference Range Interpretation Comments Hct (test code = 4544-3) 40.6 % 37.0-47.0 [facility]Hematocrit2023-03-30 13:50:44 Test Item Value Reference Range Interpretation Comments Hct (test code = 4544-3) 40.6 % 37.0-47.0 [facility]Hematocrit2023-03-30 13:50:44 Test Item Value Reference Range Interpretation Comments Hct (test code = 4544-3) 40.6 % 37.0-47.0 [facility]2023-03-30 13:50:43 Test Item Value Reference Range Interpretation Comments Hgb (test code = 13.3 See_Comment [Automated message] The [employer]-07) system which ge nerated this result transmit kaylie reference range : 12.0 - 16.0 gm/dL. The reference range was not u sed to interpret this result as normal/abnormal . [facility]23-[facility]30 13:50:43 Test Item Value Reference Range Interpretation Comments Hgb (test code = 13.3 See_Comment [Automated message] The ) system which ge nerated this result transmit kaylie reference range : 12.0 - 16.0 gm/dL. The reference range was not u sed to interpret this result as normal/abnormal . [facility]2023-[facility]30 13:50:43 Test Item Value Reference Range Interpretation Comments Hgb (test code = 13.3 See_Comment [Automated message] The ) system which ge nerated this result transmit kaylie reference range : 12.0 - 16.0 gm/dL. The reference range was not u sed to interpret this result as normal/abnormal . [facility] 13:50:43 Test Item Value Reference Range Interpretation Comments Hgb (test code = 13.3 See_Comment [Automated message] The ) system which ge nerated this result transmit kaylie reference range : 12.0 - 16.0 gm/dL. The reference range was not u sed to interpret this result as normal/abnormal . [facility] 13:50:43 Test Item Value Reference Range Interpretation Comments Hgb (test code = 13.3 See_Comment [Automated message] The 8-) system which ge nerated this result transmit kaylie reference range : 12.0 - 16.0 gm/dL. The reference range was not u sed to interpret this result as normal/abnormal . [facility] 13:50:43 Test Item Value Reference Range Interpretation Comments Hgb (test code = 13.3 See_Comment [Automated message] The 8-) system which ge nerated this result transmit kaylie reference range : 12.0 - 16.0 gm/dL. The reference range was not u sed to interpret this result as normal/abnormal . [facility] 13:50:43 Test Item Value Reference Range Interpretation Comments Hgb (test code = 13.3 See_Comment [Automated message] The 8-) system which ge nerated this result transmit kaylie reference range : 12.0 - 16.0 gm/dL. The reference range was not u sed to interpret this result as normal/abnormal . [facility] 13:50:43 Test Item Value Reference Range Interpretation Comments Hgb (test code = 13.3 See_Comment [Automated message] The 8-) system which ge nerated this result transmit kaylie reference range : 12.0 - 16.0 gm/dL. The reference range was not u sed to interpret this result as normal/abnormal . [facility]etrahydocannabinol (THC), Quantitative, [id number] 19:13:38 Test Item Value Reference Range Interpretation Comments U THC GC/MS-[place] n/a (test code = 7812) U THC Inter-[place] see note Carboxy-TH C Confirmation, (test code [...] ng/mLReference Value: Cutoff: 5 ======PERFORMIN G LAB:SDL [facility] [address] [address] 905 Moe Guzman M.D. Ph.D. [id number] U THC [facility] n/a (test code = 7811) [facility] Cancer [place]etrahy[place]C), Quantitative, [id number] 19:13:38 Test Item Value Reference Range Interpretation Comments U THC GC/MS-[place] n/a (test code = 7812) U THC [facility] see note Carboxy-TH C Confirmation, (test [...] LC-MS/MS: 42 ng/mLReference Value: Cutoff: 5 ======PERFORMIN Jenny LAB:SDL [facility] Lab oratories [facility] [address] [address] 635 Moe Guzman M.D. Ph.D. [id number] U THC [facility] n/a (test code = 7811) [facility] Cancer [place]etrahydoc[place] (THC), Quantitative, [id number] 19:13:38 Test Item Value Reference Range Interpretation Comments U THC GC/MS-[place] n/a (test code = 7812) U THC [facility] see note Carboxy-TH C Confirmation, (test [...] 42 ng/mLReference Value: Cutoff: 5 ======PERFORMIN G LAB:[facility] [address] [address] 905 Moe Guzman M.D. Ph.D. [id number] U THC [place] n/a (test code = 7811) [facility] Cancer [place]etrahydocannabin[place] (THC), Quantitative, [id number] 19:13:38 Test Item Value Reference Range Interpretation Comments U THC GC/MS-[place] n/a (test code = 7812) U THC Inter-[place] see note Carboxy-TH C Confirmation, (test code [...] 42 ng/mLReference Value: Cutoff: 5 ======PERFORMIN G LAB:[facility] [address] [address] 758 Moe Guzman M.D. Ph.D. [id number] U THC [facility] n/a (test code = 7811) [facility]etrahydocannabinol (THC), Quantitative, [id number] 19:13:38 Test Item Value Reference Range Interpretation Comments U THC GC/MS-[place] n/a (test code = 7812) U THC [facility] see note Carboxy-TH C Confirmation, (test [...] 42 ng/mLReference Value: Cutoff: 5 ======VAMSI Alvarado LAB:[facility] [address] [address] 21 Moe Guzman M.D. Ph.D. [id number] U THC [facility] n/a (test code = 7811) [facility]etrahydocannabinol (THC), Quantitative, [id number] 19:13:38 Test Item Value Reference Range Interpretation Comments U THC GC/MS-[place] n/a (test code = 7812) U THC Inter[place] see note Carboxy-TH C Confirmation, (test code [...] 42 ng/mLReference Value: Cutoff: 5 ======PERFORMIN G LAB:[facility] [address] [address] 08 Moe Guzman M.D. Ph.D. [id number] U THC [place] n/a (test code = 7811) [facility] Cancer [place]etrahydocannabinol (THC), Quantitative, [id number] 19:13:38 Test Item Value Reference Range Interpretation Comments U THC GC/MS-[place] n/a (test code = 7812) U THC Interp-[place] see note Carboxy-TH C Confirmation, (test code [...] ng/mLReference Value: Cutoff: 5 ======PERFORMIN G LAB:SDL [facility] [address] [address] 905 Moe Guzman M.D. Ph.D. [id number] U THC [facility] n/a (test code = 7811) [facility] Cancer [place]Tetrahydocannabinol (THC), Quantitative, [id number] 19:13:38 Test Item Value Reference Range Interpretation Comments U THC GC/MS-[place] n/a (test code = 7812) U THC [facility] see note Carboxy-TH C Confirmation, (test [...] 42 ng/mLReference Value: Cutoff: 5 ======PERFORMIN G LAB:[facility] Lab oratories [facility] [employer] [address] [facility] [address] 885 Moe Guzman M.D. Ph.D. [id number] U THC [facility] n/a (test code = 7811) [facility] [place] Microscopic Exam 2023-01-27 04:26:48 Test Item Value Reference Range Interpretation Comments UA WBC (test code = 6 See_Comment H Some rep orting 03967-2) parameters with in the Urinalysis test have changed due to the implementation of new instrumentation in the [place], [facility] greater sensiti vity of measurement. Urinalysis resu lts reported by the [facility] C enters using existing instrumentation , as well as Urinaly sis testing perform ed manually or by backup methodology at the [place] chino l remain relative ly unchanged. New reporting asha eters and units will not be reported for al l campuses. [Auto mated message] The sy stem which generated this result transmit kaylie reference range : 0 - 2 /HPF. The refer ence range was not u sed to interpret this result as normal/abnor mal. UA RBC (test code = See_Comment [Automa kaylie message] 94349-9) The system i[employer] generated this result transmitted ref erence range: 0 - 2 /H PF. The reference range was not used to int erpret this result as normal/abnormal . UA Mucous (test code = NOT SEEN Not Seen-Trace 21300-6) /HPF UA Bacteria (test code NOT SEEN NOT SEEN /HPF = 03302-0) UA Squam Epi (test OCC None-Occasional code = 73730-2) /HPF Lab Interpretation Abnormal (test code = 19586-4) [facility] 2023-01-27 04:26:48 Test Item Value Reference Range Interpretation Comments UA WBC (test code = 6 See_Comment H Some rep orting 98366-3) parameters with in the Urinalysis test have changed due to the implementation of new instrumentation in the [facility], al lowing greater sensiti vity of measurement. Urinalysis resu lts reported by the [facility] C enters using existing instrumentation , as well as Urinaly sis testing perform ed manually or by backup methodology at the [facility] chino l remain relative ly unchanged. New reporting asha eters and units will not be reported for [facility]. [Auto mated message] The sy stem which generated this result transmit kaylie reference range : 0 - 2 /HPF. The refer ence range was not u sed to interpret this result as normal/abnor mal. UA RBC (test code = See_Comment [Automa kaylie message] 07373-2) The system i[employer] generated this result transmitted ref erence range: 0 - 2 /H PF. The reference range was not used to int erpret this result as normal/abnormal . UA Mucous (test code = NOT SEEN Not Seen-Trace 46545-4) /HPF UA Bacteria (test code NOT SEEN NOT SEEN /HPF = 78369-8) UA Squam Epi (test OCC None-Occasional code = 51230-2) /HPF Lab Interpretation Abnormal (test code = 02823-6) [facility] 2023-01-27 04:26:48 Test Item Value Reference Range Interpretation Comments UA WBC (test code = 6 See_Comment H Some rep orting 18872-8) parameters with in the Urinalysis test have changed due to the implementation of new instrumentation in the [facility], al lowing greater sensiti vity of measurement. Urinalysis resu lts reported by the [facility] C enters using existing instrumentation , as well as Urinaly sis testing perform ed manually or by backup methodology at the [facility] chino l remain relative ly unchanged. New reporting asha eters and units will not be reported for [facility]. [Auto mated message] The sy stem which generated this result transmit kaylie reference range : 0 - 2 /HPF. The refer ence range was not u sed to interpret this result as normal/abnor mal. UA RBC (test code = See_Comment [Automa kaylie message] 05239-6) The system i[employer] generated this result transmitted ref erence range: 0 - 2 /H PF. The reference range was not used to int erpret this result as normal/abnormal . UA Mucous (test code = NOT SEEN Not Seen-Trace 34121-8) /HPF UA Bacteria (test code NOT SEEN NOT SEEN /HPF = 99793-7) UA Squam Epi (test OCC None-Occasional code = 30890-9) /HPF Lab Interpretation Abnormal (test code = 10713-6) [facility] 2023-01-27 04:26:48 Test Item Value Reference Range Interpretation Comments UA WBC (test code = 6 See_Comment H Some rep orting 44090-9) parameters with in the Urinalysis test have changed due to the implementation of new instrumentation in the [facility], [facility] greater sensiti vity of measurement. Urinalysis resu lts reported by the [facility] C enters using existing instrumentation , as well as Urinaly sis testing perform ed manually or by backup methodology at the [facility] chino l remain relative ly unchanged. New reporting asha eters and units will not be reported for [facility]. [Auto mated message] The sy stem which generated this result transmit kaylie reference range : 0 - 2 /HPF. The refer ence range was not u sed to interpret this result as normal/abnor mal. UA RBC (test code = See_Comment [Automa kaylie message] 62933-6) The system iS[employer] generated this result transmitted ref erence range: 0 - 2 /H PF. The reference range was not used to int erpret this result as normal/abnormal . UA Mucous (test code = NOT SEEN Not Seen-Trace 14915-3) /HPF UA Bacteria (test code NOT SEEN NOT SEEN /HPF = 14688-3) UA Squam Epi (test OCC None-Occasional code = 80990-8) /HPF Lab Interpretation Abnormal (test code = 16813-0) [facility] 2023-01-27 04:26:48 Test Item Value Reference Range Interpretation Comments UA WBC (test code = 6 See_Comment H Some rep orting 58932-6) parameters with in the Urinalysis test have changed due to the implementation of new instrumentation in the [facility], al lowing greater sensiti vity of measurement. Urinalysis resu lts reported by the [facility] C enters using existing instrumentation , as well as Urinaly sis testing perform ed manually or by backup methodology at the [facility] chino l remain relative ly unchanged. New reporting asha eters and units will not be reported for [facility]. [Auto mated message] The sy stem which generated this result transmit kaylie reference range : 0 - 2 /HPF. The refer ence range was not u sed to interpret this result as normal/abnor mal. UA RBC (test code = See_Comment [Automa kaylie message] 80235-0) The system i[employer] generated this result transmitted ref erence range: 0 - 2 /H PF. The reference range was not used to int erpret this result as normal/abnormal . UA Mucous (test code = NOT SEEN Not Seen-Trace 85597-9) /HPF UA Bacteria (test code NOT SEEN NOT SEEN /HPF = 21575-9) UA Squam Epi (test OCC None-Occasional code = 36087-2) /HPF Lab Interpretation Abnormal (test code = 15606-6) [facility] [place] Micro[place]opic Ex[place] 2023-01-27 04:26:48 Test Item Value Reference Range Interpretation Comments UA WBC (test code = 6 See_Comment H Some rep orting 27174-8) parameters with in the Urinalysis test have changed due to the implementation of new instrumentation in the [facility], al lowing greater sensiti vity of measurement. Urinalysis resu lts reported by the [facility] C enters using existing instrumentation , as well as Urinaly sis testing perform ed manually or by backup methodology at the [facility] chino l remain relative ly unchanged. New reporting asha eters and units will not be reported for [facility]. [Auto mated message] The sy stem which generated this result transmit kaylie reference range : 0 - 2 /HPF. The refer ence range was not u sed to interpret this result as normal/abnor mal. UA RBC (test code = See_Comment [Automa kaylie message] 73485-8) The system iSites generated this result transmitted ref erence range: 0 - 2 /H PF. The reference range was not used to int erpret this result as normal/abnormal . UA Mucous (test code = NOT SEEN Not Seen-Trace 22576-2) /HPF UA Bacteria (test code NOT SEEN NOT SEEN /HPF = 20649-7) UA Squam Epi (test OCC None-Occasional code = 41285-9) /HPF Lab Interpretation Abnormal (test code = 25392-4) [facility] 2023-01-27 04:26:48 Test Item Value Reference Range Interpretation Comments UA WBC (test code = 6 See_Comment H Some rep orting 42701-0) parameters with in the Urinalysis test have changed due to the implementation of new instrumentation in the [facility], [facility] greater sensiti vity of measurement. Urinalysis resu lts reported by the [facility] C enters using existing instrumentation , as well as Urinaly sis testing perform ed manually or by backup methodology at the [facility] chino l remain relative ly unchanged. New reporting asha eters and units will not be reported for [facility] campuses. [Auto mated message] The sy stem which generated this result transmit kaylie reference range : 0 - 2 /HPF. The refer ence range was not u sed to interpret this result as normal/abnor mal. UA RBC (test code = See_Comment [Automa kaylie message] 53065-2) The system iSites generated this result transmitted ref erence range: 0 - 2 /H PF. The reference range was not used to int erpret this result as normal/abnormal . UA Mucous (test code = NOT SEEN Not Seen-Trace 51766-0) /HPF UA Bacteria (test code NOT SEEN NOT SEEN /HPF = 88887-9) UA Squam Epi (test OCC None-Occasional code = 55178-1) /HPF Lab Interpretation Abnormal (test code = 53637-3) [facility] 2023-01-27 04:26:48 Test Item Value Reference Range Interpretation Comments UA WBC (test code = 6 See_Comment H Some rep orting 32573-4) parameters with in the Urinalysis test have changed due to the implementation of new instrumentation in the [place], [facility] greater sensiti vity of measurement. Urinalysis resu lts reported by the [facility] enters using existing instrumentation , as well as Urinaly sis testing perform ed manually or by backup methodology at the [place] chino l remain relative ly unchanged. New reporting asha eters and units will not be reported for al l campuses. [Auto mated message] The sy stem which generated this result transmit kaylie reference range : 0 - 2 /HPF. The refer ence range was not u sed to interpret this result as normal/abnor mal. UA RBC (test code = See_Comment [Automa kaylie message] 82173-2) The system iS[employer] generated this result transmitted ref erence range: 0 - 2 /H PF. The reference range was not used to int erpret this result as normal/abnormal . UA Mucous (test code = NOT SEEN Not Seen-Trace 93981-8) /HPF UA Bacteria (test code NOT SEEN NOT SEEN /HPF = 09368-2) UA Squam Epi (test OCC None-Occasional code = 94423-5) /HPF Lab Interpretation Abnormal (test code = 45618-7) [facility] w/Microscopic if [id number] 03:58:37 Test Item Value Reference Range Interpretation Comments UA Color (test code = 93643-4) Straw Straw-Yellow UA Appear (test code = 86257-3) Clear Clear UA Glucose (test code = [...] NEG Lab Interpretation (test code = Abnormal 35172-2) [facility] w/Microscopic if [id number] 03:58:37 Test Item Value Reference Range Interpretation Comments UA Color (test code = 52261-4) Straw Straw-Yellow UA Appear (test code = 13437-1) Clear Clear UA Glucose (test code = [...] NEG Lab Interpretation (test code = Abnormal 13272-0) [facility] w/Microscopic if [id number] 03:58:37 Test Item Value Reference Range Interpretation Comments UA Color (test code = 09277-3) Straw Straw-Yellow UA Appear (test code = 93920-1) Clear Clear UA Glucose (test code = [...] NEG Lab Interpretation (test code = Abnormal 95103-3) [facility] w/Microscopic if [id number] 03:58:37 Test Item Value Reference Range Interpretation Comments UA Color (test code = 75373-5) Straw Straw-Yellow UA Appear (test code = 81258-4) Clear Clear UA Glucose (test code = [...] NEG Lab Interpretation (test code = Abnormal 90600-3) [facility]/Microscopic if [id number] 03:58:37 Test Item Value Reference Range Interpretation Comments UA Color (test code = 23884-3) Straw Straw-Yellow UA Appear (test code = 54416-4) Clear Clear UA Glucose (test code = [...] NEG Lab Interpretation (test code = Abnormal 16391-3) [facility] w/Microscopic if [id number] 03:58:37 Test Item Value Reference Range Interpretation Comments UA Color (test code = 16888-6) Straw Straw-Yellow UA Appear (test code = 84095-6) Clear Clear UA Glucose (test code = [...] NEG Lab Interpretation (test code = Abnormal 72373-7) [facility] w/Microscopic if [id number] 03:58:37 Test Item Value Reference Range Interpretation Comments UA Color (test code = 43668-2) Straw Straw-Yellow UA Appear (test code = 78951-5) Clear Clear UA Glucose (test code = [...] NEG Lab Interpretation (test code = Abnormal 14570-8) [facility] w/Microscopic if [id number] 03:58:37 Test Item Value Reference Range Interpretation Comments UA Color (test code = 89150-8) Straw Straw-Yellow UA Appear (test code = 24327-3) Clear Clear UA Glucose (test code = [...] NEG Lab Interpretation (test code = Abnormal 47108-5) [facility] Test Item Value Reference Range Interpretation Comments LDH (test code = 289 U/L 135-214 H Results gre ater than 71389-8) 1651 U/L may no t be reliable due to matrix effect w ith extended diluti on as it exceeds the bituminous distributor operator's recommended goldberg it. Caution should be exercised when interpreting agarwal ch values and done in conjunction [facility] clinical contex t. Lab Interpretation (test Abnormal code = 64551-3) [facility]LDH[facility]28 20:38:14 Test Item Value Reference Range Interpretation Comments LDH (test code = 289 U/L 135-214 H Results gre ater than 62961-0) 1651 U/L may no t be reliable due to matrix effect w ith extended diluti on as it exceeds the bituminous distributor operator's recommended goldberg it. Caution should be exercised when interpreting agarwal ch values and done in conjunction [facility] clinical contex t. Lab Interpretation (test Abnormal code = 69822-8) [facility]LDH2023-[facility]-28 20:38:14 Test Item Value Reference Range Interpretation Comments LDH (test code = 289 U/L 135-214 H Results gre ater than 50666-7) 1651 U/L may no t be reliable due to matrix effect w ith extended diluti on as it exceeds the bituminous distributor operator's recommended goldberg it. Caution should be exercised when interpreting agarwal ch values and done in conjunction [facility] clinical contex t. Lab Interpretation (test Abnormal code = 52333-8) [facility]LDH[facility]23-[facility]-28 20:38:14 Test Item Value Reference Range Interpretation Comments LDH (test code = 289 U/L 135-214 H Results gre ater than 03010-3) 1651 U/L may no t be reliable due to matrix effect w ith extended diluti on as it exceeds the bituminous distributor operator's recommended goldberg it. Caution should be exercised when interpreting agarwal ch values and done in conjunction [facility] clinical contex t. Lab Interpretation (test Abnormal code = 03168-7) [facility]LDH[facility]-28 20:38:14 Test Item Value Reference Range Interpretation Comments LDH (test code = 289 U/L 135-214 H Results gre ater than 00898-4) 1651 U/L may no t be reliable due to matrix effect w ith extended diluti on as it exceeds the bituminous distributor operator's recommended goldberg it. Caution should be exercised when interpreting agarwal ch values and done in conjunction [facility] clinical contex t. Lab Interpretation (test Abnormal code = 49798-2) [facility]LDH[facility]23-[facility]-28 20:38:14 Test Item Value Reference Range Interpretation Comments LDH (test code = 289 U/L 135-214 H Results gre ater than 76463-0) 1651 U/L may no t be reliable due to matrix effect w ith extended diluti on as it exceeds the bituminous distributor operator's recommended goldberg it. Caution should be exercised when interpreting agarwal ch values and done in conjunction [facility] clinical contex t. Lab Interpretation (test Abnormal code = 63878-5) [facility]LDH[facility]23-[facility]-28 20:38:14 Test Item Value Reference Range Interpretation Comments LDH (test code = 289 U/L 135-214 H Results gre ater than 01123-3) 1651 U/L may no t be reliable due to matrix effect w ith extended diluti on as it exceeds the bituminous distributor operator's recommended [place]berg it. Caution should be exercised when interpreting agarwal ch values and done in conjunction [facility] clinical contex t. Lab Interpretation (test Abnormal code = 75192-2) [facility]14 Test Item Value Reference Range Interpretation Comments LDH (test code = 289 U/L 135-214 H Results gre ater than 59605-6) 1651 U/L may no t be reliable due to matrix effect w ith extended diluti on as it exceeds the bituminous distributor operator's recommended goldberg it. Caution should be exercised when interpreting agarwal ch values and done in conjunction wit h clinical contex t. Lab Interpretation (test Abnormal code = 64493-8) [facility] [place]rolled [place], [id number] 09:20:34 Test Item Value Reference Interpretation Comments Range Urine Creatinine 55.1 mg/dL (test code = 2161-8) Urine Specific 1.014 [place] (test code = 5810-7) Urine Ph (test 6.2 code = 2756-5) Urine Oxidants Negative Cutoff: 200 (test code = mg/L 82034-3) Urine Comment Normal (test code = 26881-3) U Negative Cutoff: 200 Barbiturates-Luu ng/mL (test code = 84226-1) U Cocaine Lvl-Luu Negative Cutoff: 150 This coca ine immunoassay (test code = ng/mL targets benzoyl ecgonine 63657-5) theprimary meta bolite of cocaine. U THC-Luu (test See Cutoff: 50 A RESULT: Pre sumptive code = 37303-1) Footnote ng/mL PositiveThis immunoassay targets delta-9 tetrahydrocanna [...] code Not Cutoff: 25 Tylenol 3 = 97244-1) Detected ng/mL Bmtylja-6-faiy-glu Not Cutoff: 100 Metabolit e of codeine curonide (test Detected ng/mL code = 19262-4) Morphine (test Not Cutoff: 25 Gayle Mary n, MS Contin; Also code = 73832-7) Detected ng/mL a minor meta bolite (10%) ofcodeine and c an be seen in low concentrati ons (<2,000ng/mL) w ith poppy seed ingestion. Cqvlcrhp-2-stav-gl Not Cutoff: 100 Metabolit e of morphine ucuronide (test Detected ng/mL code = 06766-5) 6-monoacetylmorphi Not Cutoff: 25 Metabolit e of heroin ne (test code = Detected ng/mL 59363-9) Hydrocodone (test Not Cutoff: 25 Lortab, No rco, Vicodin; Also a code = 54990-7) Detected ng/mL very minor m etabolite ofcodeine and impurity (< 1%) of oxycodone. Norhydrocodone Not Cutoff: 25 Metabolite of hydrocodone (test code = Detected ng/mL 88689-8) Dihydrocodeine Not Cutoff: 25 Metabolite of hydrocodone (test code = Detected ng/mL 97492-6) Hydromorphone Not Cutoff: 25 Dilaudid, Exal go; Also a (test code = Detected ng/mL metabolite of h ydrocodone and 50790-7) aminor (<5%) me tabolite of morphine. Lfbxtrtqazcdo-6-ff Not Cutoff: 100 Metabolit e of hydromorphone ta-glucuronide Detected ng/mL (test code = 95537-1) Oxycodone (test Present Cutoff: 25 A Endocet, Per cocet, Oxycontin code = 07877-1) ng/mL Noroxycodone (test Present Cutoff: 25 A Metabolit e of oxycodone code = 36184-3) ng/mL Oxymorphone (test Not Cutoff: 25 Numorphan, Opana; Also a code = 23589-6) Detected ng/mL metabolite o f oxycodone. Rsgetmylyls-0-fjcx Not Cutoff: 100 Metabolit e of oxymorphone -glucuronide (test Detected ng/mL and/or na loxone (nornaloxone) code = 19949-9) Noroxymorphone Present Cutoff: 25 A Metabolite of oxymorphone (test code = ng/mL and/or naloxone (nornaloxone) 73421-2) Fentanyl (test Not Cutoff: 2 Actiq, Durage sic, Fentora code = 23384-7) Detected ng/mL Norfentanyl (test Not Cutoff: 2 Metabolite of fentanyl code = 09211-5) Detected ng/mL Meperidine (test Not Cutoff: 25 Demerol code = 32141-8) Detected ng/mL Normeperidine Not Cutoff: 25 Metabolite of meperidine (test code = Detected ng/mL 62577-1) Naloxone (test Not Cutoff: 25 Narcan code = 16752-1) Detected ng/mL Bkgeyjuk-1-pbly-gl Not Cutoff: 100 Metabolit e of naloxone ucuronide (test Detected ng/mL code = 65815-4) U Methadone (test Not Cutoff: 25 Dolophine code = 87635-5) Detected ng/mL EDDP (test code = Not Cutoff: 25 Metabolite of methadone 18415-4) Detected ng/mL Propoxyphene (test Not Cutoff: 25 Darvon, D arvocet code = 98007-9) Detected ng/mL Norpropoxyphene Not Cutoff: 25 Metabolite o f propoxyphene (test code = Detected ng/mL 18114-3) Tramadol (test Not Cutoff: 25 Tradol, Ultra m, Ultracet code = 03797-1) Detected ng/mL O-desmethyltramado Not Cutoff: 25 Metabolit e of tramadol l (test code = Detected ng/mL 83737-9) Tapentadol (test Not Cutoff: 25 Nucynta code = 85211-1) Detected ng/mL Kyldybsdav-kcot-vv Not Cutoff: 100 Metabolit e of tapentadol ucuronide (test Detected ng/mL code = 47378-2) Buprenorphine Not Cutoff: 5 Buprenex, Subo xone (test code = Detected ng/mL 60647-0) Norbuprenorphine Not Cutoff: 5 Metabolite of buprenorphine (test code = Detected ng/mL 59962-9) Norbuprenorphine Not Cutoff: 20 Metabolite of buprenorphine Glucuronide (test Detected ng/mL code = 76935-0) Benzodiazepine See Test detected the presence of Interp Urine (test Footnote alprazola m and two of code = 34849-5) itsmetabolit es (alpha-hydroxya lprazolam andalpha-hydrox yalprazolam glucuronide). S uspect use ofalprazolam wi thin the past three days. Hailey t detected the presence of zol pidem ndofmx-8-dpfdsh ylicacid (metabolite of zolpidem) only. Suspect use of zolpidemwithin the past four d ays. ----ADDITIONAL INFORMATION---- T his test was de veloped and its performance characteristics determined by [facility] in a manner consistent with CLIArequirement s. This test has not been cleare d or approved bythe U.S. Food and Drug Administration. Alprazolam Urine Present Cutoff: 10 A Xanax (test code = ng/mL 81448-1) Alpha-Hydroxyalpra Present Cutoff: 10 A Metabolit e of Alprazolam zolam Urine (test ng/mL code = 98110-5) Alpha-Hydroxyalpra Present Cutoff: 50 A Metabolit e of Alprazolam zolam Glucuronide ng/mL Urine (test code = 44475-8) Chlordiazepoxide Not Cutoff: 10 Librium Urine (test code = Detected ng/mL 28432-8) Colbazam Urine Not Cutoff: 10 Frisium, Onfi (test code = Detected ng/mL 83974-3) N-Desmethylclobaza Not Cutoff: 200 Metabolit e of Clobazam m Urine (test code Detected ng/mL = 35726-3) Clonazepam Urine Not Cutoff: 10 Klonopin, R ivotril (test code = Detected ng/mL 35525-0) 7-Aminoclonazepam Not Cutoff: 10 Metabolite of Clonazepam Urine (test code = Detected ng/mL 13782-7) Diazepam Urine Not Cutoff: 10 Valium (test code = Detected ng/mL 23435-5) Nordiazepam Urine Not Cutoff: 10 Metabolite of Chlordiazepoxide, (test code = Detected ng/mL Diazepam, or Pr azepam. 59384-8) Flunitrazepam Not Cutoff: 10 Rohypnol Urine (test code = Detected ng/mL 61006-4) 7-Aminoflunitrazep Not Cutoff: 10 Metabolit e of Flunitrazepam am Urine (test Detected ng/mL code = 45819-7) FlUrinerazepam Not Cutoff: 10 Dalmane Urine (test code = Detected ng/mL 02838-5) 2-Hydroxy Ethyl Not Cutoff: 10 Metabolite o f Flurazepam Flurazepam Urine Detected ng/mL (test code = 23560-6) Lorazepam Urine Not Cutoff: 10 Ativan (test code = Detected ng/mL 92307-4) Lorazepam Not Cutoff: 50 Metabolite of L orazepam Glucuronide Urine Detected ng/mL (test code = 78034-3) Midazolam Urine Not Cutoff: 10 Versed (test code = Detected ng/mL 55895-3) Alpha-Hydroxy Not Cutoff: 10 Metabolite of Midazolam Midazolam Urine Detected ng/mL (test code = 39884-9) Oxazepam Urine Not Cutoff: 10 Serax; Also a metabolite of (test code = Detected ng/mL Chlordiazepoxid e, Diazepam, 23969-2) orTemazepam. Oxazepam Not Cutoff: 50 Metabolite of O xazepam Glucuronide Urine Detected ng/mL (test code = 44413-6) Prazepam Urine Not Cutoff: 10 Centrax (test code = Detected ng/mL 02094-0) Temazepam Urine Not Cutoff: 10 Restoril; Al so a metabolite of (test code = Detected ng/mL Diazepam. 17812-4) Temazepam Not Cutoff: 50 Metabolite of T emazepam Glucuronide Urine Detected ng/mL (test code = 39411-1) Triazolam Urine Not Cutoff: 10 Halcion (test code = Detected ng/mL 50187-1) Alpha-Hydroxy Not Cutoff: 10 Metabolite of Triazolam Triazolam Urine Detected ng/mL (test code = 57853-0) Zolpidem Urine Not Cutoff: 10 Ambien (test code = Detected ng/mL 56285-3) Zolpidem Present Cutoff: 10 A Metabolite of Z olpidem Hylkm-4-Swxqcpubol ng/mL Acid Urine (test code = 18527-6) Methamphetamine Not Cutoff: 100 Desoxyn (test code = Detected ng/mL 08573-1) Amphetamine (test Not Cutoff: 100 Dyanavel X R, Adzenys ER, code = 59728-7) Detected ng/mL Adderall, Vy vanse; Also ametabolite of methamphetamine 3,4-Methylenedioxy Not Cutoff: 100 methamphetamine Detected ng/mL (MDMA) (test code = 03368-5) 3,4-Methylenedioxy Not Cutoff: 100 -N-Ethylamphetamin Detected ng/mL e (MDEA) (test code = 09570-7) 3,4-Methylenedioxy Not Cutoff: 100 Also a me tabolite of MDMA amphetamine (MDA) Detected ng/mL and/or MDE A (test code = 64829-1) Ephedrine (test Not Cutoff: 100 code = 63803) Detected ng/mL Pseudoephedrine Present Cutoff: 100 A Sudafed (test code = ng/mL 51910) Phentermine (test Not Cutoff: 100 Adipex-P, Lomaira, Qsymia code = 51254-7) Detected ng/mL Phencyclidine Not Cutoff: 20 (PCP) (test code = Detected ng/mL ) Methylphenidate Not Cutoff: 20 Ritalin, Con certa (test code = Detected ng/mL 92540-9) Ritalinic acid Not Cutoff: 100 Metabolite of methylphenidate (test code = Detected ng/mL 28116) Stimulant See Test detected t he presence of Interpretation Footnote pseudoephedri ne. Suspect useof (test code = pseudoephedrine within the past 86925-3) three days. ----ADDITIONAL INFORMATION---- T his test was de veloped and its performance characteristics determined by [facility] in a manner consistent with CLIArequirement s. This test has not been cleare d or approved bythe U.S. Food and Drug Administration. Test [facility] [id number] [place], [place] [address]Lgs Dir ronnie: Moe Guzman M.D. Ph.D.; CLIA# [id number] Patients Current NOT ---------ADDITIONAL Medications (test ANSWERED INFORMATIO N A code = 67537-8) ccuracy and completeness of declared medica tions onreports solely dependen t on information submitted byshanei leeroy. Lab Interpretation Abnormal (test code = 94226-0) [facility] [place]rolled [place], [id number] 09:20:34 Test Item Value Reference Interpretation Comments Range Urine Creatinine 55.1 mg/dL (test code = 2161-8) Urine Specific 1.014 [place] (test code = 5810-7) Urine Ph (test 6.2 code = 2756-5) Urine Oxidants Negative Cutoff: 200 (test code = mg/L 17368-7) Urine Comment Normal (test code = 81340-3) U Negative Cutoff: 200 Barbiturates-Luu ng/mL (test code = 04348-9) U Cocaine Lvl-Luu Negative Cutoff: 150 This coca ine immunoassay (test code = ng/mL targets benzoyl ecgonine 81002-9) theprimary meta bolite of cocaine. U THC-Luu (test See Cutoff: 50 A RESULT: Pre sumptive code = 15370-6) Footnote ng/mL PositiveThis immunoassay targets delta-9 tetrahydrocanna [...] code Not Cutoff: 25 Tylenol 3 = 87261-2) Detected ng/mL Viwvjvz-5-ibsr-glu Not Cutoff: 100 Metabolit e of codeine curonide (test Detected ng/mL code = 93882-6) Morphine (test Not Cutoff: 25 Gayle Mary n, MS Contin; Also code = 07225-8) Detected ng/mL a minor meta bolite (10%) ofcodeine and c an be seen in low concentrati ons (<2,000ng/mL) w ith poppy seed ingestion. Fhwjpwrq-6-drfd-gl Not Cutoff: 100 Metabolit e of morphine ucuronide (test Detected ng/mL code = 89434-4) 6-monoacetylmorphi Not Cutoff: 25 Metabolit e of heroin ne (test code = Detected ng/mL 43051-5) Hydrocodone (test Not Cutoff: 25 Lortab, No rco, Vicodin; Also a code = 18446-8) Detected ng/mL very minor m etabolite ofcodeine and impurity (< 1%) of oxycodone. Norhydrocodone Not Cutoff: 25 Metabolite of hydrocodone (test code = Detected ng/mL 71917-2) Dihydrocodeine Not Cutoff: 25 Metabolite of hydrocodone (test code = Detected ng/mL 09775-3) Hydromorphone Not Cutoff: 25 Dilaudid, Exal go; Also a (test code = Detected ng/mL metabolite of h ydrocodone and 07480-0) aminor (<5%) me tabolite of morphine. Dtvohvzucqnur-2-sz Not Cutoff: 100 Metabolit e of hydromorphone ta-glucuronide Detected ng/mL (test code = 64504-9) Oxycodone (test Present Cutoff: 25 A Endocet, Per cocet, Oxycontin code = 09028-8) ng/mL Noroxycodone (test Present Cutoff: 25 A Metabolit e of oxycodone code = 96215-1) ng/mL Oxymorphone (test Not Cutoff: 25 Numorphan, Opana; Also a code = 62209-6) Detected ng/mL metabolite o f oxycodone. Lwdwyetucmg-5-okqc Not Cutoff: 100 Metabolit e of oxymorphone -glucuronide (test Detected ng/mL and/or na loxone (nornaloxone) code = 60468-9) Noroxymorphone Present Cutoff: 25 A Metabolite of oxymorphone (test code = ng/mL and/or naloxone (nornaloxone) 75057-2) Fentanyl (test Not Cutoff: 2 Actiq, Durage sic, [place]ora code = 61353-7) Detected ng/mL Norfentanyl (test Not Cutoff: 2 Metabolite of fentanyl code = 39423-6) Detected ng/mL Meperidine (test Not Cutoff: 25 Demerol code = 02107-9) Detected ng/mL Normeperidine Not Cutoff: 25 Metabolite of meperidine (test code = Detected ng/mL 08286-4) Naloxone (test Not Cutoff: 25 Narcan code = 16612-9) Detected ng/mL Utfuazie-1-acsw-gl Not Cutoff: 100 Metabolit e of naloxone ucuronide (test Detected ng/mL code = 87915-0) U Methadone (test Not Cutoff: 25 Dolophine code = 30090-1) Detected ng/mL EDDP (test code = Not Cutoff: 25 Metabolite of methadone 66803-6) Detected ng/mL Propoxyphene (test Not Cutoff: 25 Darvon, D arvocet code = 84607-1) Detected ng/mL Norpropoxyphene Not Cutoff: 25 Metabolite o f propoxyphene (test code = Detected ng/mL 58307-6) Tramadol (test Not Cutoff: 25 Tradol, Ultra m, Ultracet code = 75506-5) Detected ng/mL O-desmethyltramado Not Cutoff: 25 Metabolit e of tramadol l (test code = Detected ng/mL 36422-6) Tapentadol (test Not Cutoff: 25 Nucynta code = 87197-8) Detected ng/mL Ehouasmsrm-vkxj-on Not Cutoff: 100 Metabolit e of tapentadol ucuronide (test Detected ng/mL code = 90293-2) Buprenorphine Not Cutoff: 5 Buprenex, Subo xone (test code = Detected ng/mL 13340-7) Norbuprenorphine Not Cutoff: 5 Metabolite of buprenorphine (test code = Detected ng/mL 68808-3) Norbuprenorphine Not Cutoff: 20 Metabolite of buprenorphine Glucuronide (test Detected ng/mL code = 89154-5) Benzodiazepine See Test detected the presence of Interp Urine (test Footnote alprazola m and two of code = 35631-6) itsmetabolit es (alpha-hydroxya lprazolam andalpha-hydrox yalprazolam glucuronide). S uspect use ofalprazolam wi thin the past three days. Hailey t detected the presence of zol pidem oudmlx-5-rxnigt ylicacid (metabolite of zolpidem) only. Suspect use of zolpidemwithin the past four d ays. ----ADDITIONAL INFORMATION---- T his test was de veloped and its performance characteristics determined by [facility] in a manner consistent with CLIArequirement s. This test has not been cleare d or approved bythe U.S. Food and Drug Administration. Alprazolam Urine Present Cutoff: 10 A Xanax (test code = ng/mL 14309-4) Alpha-Hydroxyalpra Present Cutoff: 10 A Metabolit e of Alprazolam zolam Urine (test ng/mL code = 93910-1) Alpha-Hydroxyalpra Present Cutoff: 50 A Metabolit e of Alprazolam zolam Glucuronide ng/mL Urine (test code = 06054-1) Chlordiazepoxide Not Cutoff: 10 Librium Urine (test code = Detected ng/mL 87852-9) Colbazam Urine Not Cutoff: 10 Frisium, Onfi (test code = Detected ng/mL 84864-2) N-Desmethylclobaza Not Cutoff: 200 Metabolit e of Clobazam m Urine (test code Detected ng/mL = 08033-2) Clonazepam Urine Not Cutoff: 10 Klonopin, R ivotril (test code = Detected ng/mL 72847-4) 7-Aminoclonazepam Not Cutoff: 10 Metabolite of Clonazepam Urine (test code = Detected ng/mL 29458-0) Diazepam Urine Not Cutoff: 10 Valium (test code = Detected ng/mL 89816-6) Nordiazepam Urine Not Cutoff: 10 Metabolite of Chlordiazepoxide, (test code = Detected ng/mL Diazepam, or Pr azepam. 32627-8) Flunitrazepam Not Cutoff: 10 Rohypnol Urine (test code = Detected ng/mL 85353-5) 7-Aminoflunitrazep Not Cutoff: 10 Metabolit e of Flunitrazepam am Urine (test Detected ng/mL code = 51672-5) FlUrinerazepam Not Cutoff: 10 Dalmane Urine (test code = Detected ng/mL 75981-1) 2-Hydroxy Ethyl Not Cutoff: 10 Metabolite o f Flurazepam Flurazepam Urine Detected ng/mL (test code = 03108-4) Lorazepam Urine Not Cutoff: 10 Ativan (test code = Detected ng/mL 84745-2) Lorazepam Not Cutoff: 50 Metabolite of L orazepam Glucuronide Urine Detected ng/mL (test code = 54910-2) Midazolam Urine Not Cutoff: 10 Versed (test code = Detected ng/mL 76400-8) Alpha-Hydroxy Not Cutoff: 10 Metabolite of Midazolam Midazolam Urine Detected ng/mL (test code = 74149-4) Oxazepam Urine Not Cutoff: 10 Serax; Also a metabolite of (test code = Detected ng/mL Chlordiazepoxid e, Diazepam, 79596-1) orTemazepam. Oxazepam Not Cutoff: 50 Metabolite of O xazepam Glucuronide Urine Detected ng/mL (test code = 84533-6) Prazepam Urine Not Cutoff: 10 Centrax (test code = Detected ng/mL 44782-5) Temazepam Urine Not Cutoff: 10 Restoril; Al so a metabolite of (test code = Detected ng/mL Diazepam. 98022-3) Temazepam Not Cutoff: 50 Metabolite of T emazepam Glucuronide Urine Detected ng/mL (test code = 15808-6) Triazolam Urine Not Cutoff: 10 Halcion (test code = Detected ng/mL 13295-5) Alpha-Hydroxy Not Cutoff: 10 Metabolite of Triazolam Triazolam Urine Detected ng/mL (test code = 76813-1) Zolpidem Urine Not Cutoff: 10 Ambien (test code = Detected ng/mL 38800-5) Zolpidem Present Cutoff: 10 A Metabolite of Z olpidem Natmo-6-Kdrzwcblcr ng/mL Acid Urine (test code = 98916-8) Methamphetamine Not Cutoff: 100 Desoxyn (test code = Detected ng/mL 94748-4) Amphetamine (test Not Cutoff: 100 Dyanavel X R, Adzenys ER, code = 06274-5) Detected ng/mL Adderall, Vy vanse; Also ametabolite of methamphetamine 3,4-Methylenedioxy Not Cutoff: 100 methamphetamine Detected ng/mL (MDMA) (test code = 45830-8) 3,4-Methylenedioxy Not Cutoff: 100 -N-Ethylamphetamin Detected ng/mL e (MDEA) (test code = 40097-6) 3,4-Methylenedioxy Not Cutoff: 100 Also a me tabolite of MDMA amphetamine (MDA) Detected ng/mL and/or MDE A (test code = 61977-8) Ephedrine (test Not Cutoff: 100 code = 59273) Detected ng/mL Pseudoephedrine Present Cutoff: 100 A Sudafed (test code = ng/mL 98303) Phentermine (test Not Cutoff: 100 Adipex-P, Lomaira, Qsymia code = 24512-2) Detected ng/mL Phencyclidine Not Cutoff: 20 (PCP) (test code = Detected ng/mL 17969-1) Methylphenidate Not Cutoff: 20 Ritalin, Con certa (test code = Detected ng/mL 21003-5) Ritalinic acid Not Cutoff: 100 Metabolite of methylphenidate (test code = Detected ng/mL ) Stimulant See Test detected t he presence of Interpretation Footnote pseudoephedri ne. Suspect useof (test code = pseudoephedrine within the past 75960-6) three days. ----ADDITIONAL INFORMATION---- T his test was de veloped and its performance characteristics determined by [facility] in a manner consistent with CLIArequirement s. This test has not been cleare d or approved bythe U.S. Food and Drug Administration. Test Performed by:[facility] [id number] [place], [place] [address]Tii Dir ronnie: Moe Guzman M.D. Ph.D.; CLIA# [id number] Patients Current NOT ---------ADDITIONAL Medications (test ANSWERED INFORMATIO N A code = 03719-8) ccuracy and completeness of declared medica tions onreports solely dependen t on information submitted bycli ent. Lab Interpretation Abnormal (test code = 38962-9) [facility] [place]rolled [place], [id number] 09:20:34 Test Item Value Reference Interpretation Comments Range Urine Creatinine 55.1 mg/dL (test code = 2161-8) Urine Specific 1.014 [place] (test code = 5810-7) Urine Ph (test 6.2 code = 2756-5) Urine Oxidants Negative Cutoff: 200 (test code = mg/L 63540-2) Urine Comment Normal (test code = 99193-2) U Negative Cutoff: 200 Barbiturates-Luu ng/mL (test code = 71777-2) U Cocaine Lvl-Luu Negative Cutoff: 150 This coca ine immunoassay (test code = ng/mL targets benzoyl ecgonine 03961-5) theprimary meta bolite of cocaine. U THC-Luu (test See Cutoff: 50 A RESULT: Pre sumptive code = 52751-1) Footnote ng/mL PositiveThis immunoassay targets delta-9 tetrahydrocanna [...] code Not Cutoff: 25 Tylenol 3 = 35259-0) Detected ng/mL Iaicstu-8-deyb-glu Not Cutoff: 100 Metabolit e of codeine curonide (test Detected ng/mL code = 16366-3) Morphine (test Not Cutoff: 25 Gayle Mary n, MS Contin; Also code = 17770-5) Detected ng/mL a minor meta bolite (10%) ofcodeine and c an be seen in low concentrati ons (<2,000ng/mL) w ith poppy seed ingestion. Vfocbnph-3-jmkx-gl Not Cutoff: 100 Metabolit e of morphine ucuronide (test Detected ng/mL code = 05010-8) 6-monoacetylmorphi Not Cutoff: 25 Metabolit e of heroin ne (test code = Detected ng/mL 48235-0) Hydrocodone (test Not Cutoff: 25 Lortab, No rco, Vicodin; Also a code = 22251-6) Detected ng/mL very minor m etabolite ofcodeine and impurity (< 1%) of oxycodone. Norhydrocodone Not Cutoff: 25 Metabolite of hydrocodone (test code = Detected ng/mL 67632-0) Dihydrocodeine Not Cutoff: 25 Metabolite of hydrocodone (test code = Detected ng/mL 92666-0) Hydromorphone Not Cutoff: 25 Dilaudid, Exal go; Also a (test code = Detected ng/mL metabolite of h ydrocodone and 47983-1) aminor (<5%) me tabolite of morphine. Gfrwzibglxcew-4-nx Not Cutoff: 100 Metabolit e of hydromorphone ta-glucuronide Detected ng/mL (test code = 69570-9) Oxycodone (test Present Cutoff: 25 A Endocet, Per cocet, Oxycontin code = 13869-7) ng/mL Noroxycodone (test Present Cutoff: 25 A Metabolit e of oxycodone code = 18414-1) ng/mL Oxymorphone (test Not Cutoff: 25 Numorphan, Opana; Also a code = 22609-5) Detected ng/mL metabolite o f oxycodone. Vophogpfdpi-0-hzdd Not Cutoff: 100 Metabolit e of oxymorphone -glucuronide (test Detected ng/mL and/or na loxone (nornaloxone) code = 40578-2) Noroxymorphone Present Cutoff: 25 A Metabolite of oxymorphone (test code = ng/mL and/or naloxone (nornaloxone) 44241-6) Fentanyl (test Not Cutoff: 2 Actiq, Durage sic, Fentora code = 14157-7) Detected ng/mL Norfentanyl (test Not Cutoff: 2 Metabolite of fentanyl code = 55631-9) Detected ng/mL Meperidine (test Not Cutoff: 25 Demerol code = 15640-3) Detected ng/mL Normeperidine Not Cutoff: 25 Metabolite of meperidine (test code = Detected ng/mL 65201-2) Naloxone (test Not Cutoff: 25 Narcan code = 01530-5) Detected ng/mL Ninbsmlg-2-mrqs-gl Not Cutoff: 100 Metabolit e of naloxone ucuronide (test Detected ng/mL code = 49581-5) U Methadone (test Not Cutoff: 25 Dolophine code = 83534-0) Detected ng/mL EDDP (test code = Not Cutoff: 25 Metabolite of methadone 38461-8) Detected ng/mL Propoxyphene (test Not Cutoff: 25 Darvon, D arvocet code = 87410-4) Detected ng/mL Norpropoxyphene Not Cutoff: 25 Metabolite o f propoxyphene (test code = Detected ng/mL 26900-0) Tramadol (test Not Cutoff: 25 Tradol, Ultra m, Ultracet code = 02112-2) Detected ng/mL O-desmethyltramado Not Cutoff: 25 Metabolit e of tramadol l (test code = Detected ng/mL 19979-7) Tapentadol (test Not Cutoff: 25 Nucynta code = 74162-0) Detected ng/mL Zbaltbmknh-xgkw-vz Not Cutoff: 100 Metabolit e of tapentadol ucuronide (test Detected ng/mL code = 07359-4) Buprenorphine Not Cutoff: 5 Buprenex, Subo xone (test code = Detected ng/mL 76172-1) Norbuprenorphine Not Cutoff: 5 Metabolite of buprenorphine (test code = Detected ng/mL 52253-1) Norbuprenorphine Not Cutoff: 20 Metabolite of buprenorphine Glucuronide (test Detected ng/mL code = 78306-0) Benzodiazepine See Test detected the presence of Interp Urine (test Footnote alprazola m and two of code = 82970-0) itsmetabolit es (alpha-hydroxya lprazolam andalpha-hydrox yalprazolam glucuronide). S uspect use ofalprazolam wi thin the past three days. Hailey t detected the presence of zol pidem dkqtjx-5-yrpcrp ylicacid (metabolite of zolpidem) only. Suspect use of zolpidemwithin the past four d ays. ----ADDITIONAL INFORMATION---- T his test was de veloped and its performance characteristics determined by [facility] in a manner consistent with CLIArequirement s. This test has not been cleare d or approved bythe U.S. Food and Drug Administration. Alprazolam Urine Present Cutoff: 10 A Xanax (test code = ng/mL 04245-4) Alpha-Hydroxyalpra Present Cutoff: 10 A Metabolit e of Alprazolam zolam Urine (test ng/mL code = 78015-3) Alpha-Hydroxyalpra Present Cutoff: 50 A Metabolit e of Alprazolam zolam Glucuronide ng/mL Urine (test code = 30614-8) Chlordiazepoxide Not Cutoff: 10 Librium Urine (test code = Detected ng/mL 79867-2) Colbazam Urine Not Cutoff: 10 Frisium, Onfi (test code = Detected ng/mL 33030-4) N-Desmethylclobaza Not Cutoff: 200 Metabolit e of Clobazam m Urine (test code Detected ng/mL = 96213-8) Clonazepam Urine Not Cutoff: 10 Klonopin, R ivotril (test code = Detected ng/mL 05996-0) 7-Aminoclonazepam Not Cutoff: 10 Metabolite of Clonazepam Urine (test code = Detected ng/mL 64631-2) Diazepam Urine Not Cutoff: 10 Valium (test code = Detected ng/mL 81291-6) Nordiazepam Urine Not Cutoff: 10 Metabolite of Chlordiazepoxide, (test code = Detected ng/mL Diazepam, or Pr azepam. 62967-3) Flunitrazepam Not Cutoff: 10 Rohypnol Urine (test code = Detected ng/mL 13739-3) 7-Aminoflunitrazep Not Cutoff: 10 Metabolit e of Flunitrazepam am Urine (test Detected ng/mL code = 19803-2) FlUrinerazepam Not Cutoff: 10 Dalmane Urine (test code = Detected ng/mL 43437-3) 2-Hydroxy Ethyl Not Cutoff: 10 Metabolite o f Flurazepam Flurazepam Urine Detected ng/mL (test code = 96197-8) Lorazepam Urine Not Cutoff: 10 Ativan (test code = Detected ng/mL 82730-4) Lorazepam Not Cutoff: 50 Metabolite of L orazepam Glucuronide Urine Detected ng/mL (test code = 86256-6) Midazolam Urine Not Cutoff: 10 Versed (test code = Detected ng/mL 62721-5) Alpha-Hydroxy Not Cutoff: 10 Metabolite of Midazolam Midazolam Urine Detected ng/mL (test code = 58576-2) Oxazepam Urine Not Cutoff: 10 Serax; Also a metabolite of (test code = Detected ng/mL Chlordiazepoxid e, Diazepam, 68808-3) orTemazepam. Oxazepam Not Cutoff: 50 Metabolite of O xazepam Glucuronide Urine Detected ng/mL (test code = 74307-3) Prazepam Urine Not Cutoff: 10 Centrax (test code = Detected ng/mL 77542-1) Temazepam Urine Not Cutoff: 10 Restoril; Al so a metabolite of (test code = Detected ng/mL Diazepam. 01606-0) Temazepam Not Cutoff: 50 Metabolite of T emazepam Glucuronide Urine Detected ng/mL (test code = 51793-2) Triazolam Urine Not Cutoff: 10 Halcion (test code = Detected ng/mL ) Alpha-Hydroxy Not Cutoff: 10 Metabolite of Triazolam Triazolam Urine Detected ng/mL (test code = 65309-9) Zolpidem Urine Not Cutoff: 10 Ambien (test code = Detected ng/mL 98505-1) Zolpidem Present Cutoff: 10 A Metabolite of Z olpidem Rktxl-8-Yqnrrlkknv ng/mL Acid Urine (test code = 90744-0) Methamphetamine Not Cutoff: 100 Desoxyn (test code = Detected ng/mL 64598-5) Amphetamine (test Not Cutoff: 100 Dyanavel X R, Adzenys ER, code = 11193-2) Detected ng/mL Adderall, Vy vanse; Also ametabolite of methamphetamine 3,4-Methylenedioxy Not Cutoff: 100 methamphetamine Detected ng/mL (MDMA) (test code = 15440-4) 3,4-Methylenedioxy Not Cutoff: 100 -N-Ethylamphetamin Detected ng/mL e (MDEA) (test code = 40738-2) 3,4-Methylenedioxy Not Cutoff: 100 Also a me tabolite of MDMA amphetamine (MDA) Detected ng/mL and/or MDE A (test code = 06011-7) Ephedrine (test Not Cutoff: 100 code = 81587) Detected ng/mL Pseudoephedrine Present Cutoff: 100 A Sudafed (test code = ng/mL 86013) Phentermine (test Not Cutoff: 100 Adipex-P, Lomaira, Qsymia code = 77587-3) Detected ng/mL Phencyclidine Not Cutoff: 20 (PCP) (test code = Detected ng/mL 57193-7) Methylphenidate Not Cutoff: 20 Ritalin, Con certa (test code = Detected ng/mL 52790-6) Ritalinic acid Not Cutoff: 100 Metabolite of methylphenidate (test code = Detected ng/mL 39797) Stimulant See Test detected t he presence of Interpretation Footnote pseudoephedri ne. Suspect useof (test code = pseudoephedrine within the past 01087-7) three days. ----ADDITIONAL INFORMATION---- T his test was de veloped and its performance characteristics determined by [facility] in a manner consistent with CLIArequirement s. This test has not been cleare d or approved bythe U.S. Food and Drug Administration. Test [facility]formed [facility] [id number] [place], [place] [address]Wxw Dir ronnie: Moe Guzman M.D. Ph.D.; CLIA# [id number] Patients Current NOT ---------ADDITIONAL Medications (test ANSWERED INFORMATIO N A code = 16841-8) ccuracy and completeness of declared medica tions onreports solely dependen t on information submitted bycli ent. Lab Interpretation Abnormal (test code = 58003-1) [facility] [place], [id number] 09:20:34 Test Item Value Reference Interpretation Comments Range Urine Creatinine 55.1 mg/dL (test code = 2161-8) Urine Specific 1.014 [place] (test code = 5810-7) Urine Ph (test 6.2 code = 2756-5) Urine Oxidants Negative Cutoff: 200 (test code = mg/L 28897-5) Urine Comment Normal (test code = 84752-0) U Negative Cutoff: 200 Barbiturates-[place] ng/mL (test code = 48864-3) U Cocaine Lvl-[place] Negative Cutoff: 150 This coca ine immunoassay (test code = ng/mL targets benzoyl ecgonine 52921-0) theprimary meta bolite of cocaine. U THC-[place] (test See Cutoff: 50 A RESULT: Pre sumptive code = 74678-9) Footnote ng/mL PositiveThis immunoassay targets delta-9 tetrahydrocanna [...] code Not Cutoff: 25 Tylenol 3 = 25860-6) Detected ng/mL Gxrlvcb-2-dcnc-glu Not Cutoff: 100 Metabolit e of codeine curonide (test Detected ng/mL code = 72111-8) Morphine (test Not Cutoff: 25 Gayle Mary n, MS Contin; Also code = 12266-0) Detected ng/mL a minor meta bolite (10%) ofcodeine and c an be seen in low concentrati ons (<2,000ng/mL) w ith poppy seed ingestion. Rndrlieb-9-kxzk-gl Not Cutoff: 100 Metabolit e of morphine ucuronide (test Detected ng/mL code = 02690-9) 6-monoacetylmorphi Not Cutoff: 25 Metabolit e of heroin ne (test code = Detected ng/mL 31791-9) Hydrocodone (test Not Cutoff: 25 Lortab, No rco, Vicodin; Also a code = 07354-4) Detected ng/mL very minor m etabolite ofcodeine and impurity (< 1%) of oxycodone. Norhydrocodone Not Cutoff: 25 Metabolite of hydrocodone (test code = Detected ng/mL 63803-8) Dihydrocodeine Not Cutoff: 25 Metabolite of hydrocodone (test code = Detected ng/mL 25915-7) Hydromorphone Not Cutoff: 25 Dilaudid, Exal go; Also a (test code = Detected ng/mL metabolite of h ydrocodone and 83160-6) aminor (<5%) me tabolite of morphine. Oysgvtomfqyec-8-ha Not Cutoff: 100 Metabolit e of hydromorphone ta-glucuronide Detected ng/mL (test code = 99390-3) Oxycodone (test Present Cutoff: 25 A Endocet, Per cocet, Oxycontin code = 59120-0) ng/mL Noroxycodone (test Present Cutoff: 25 A Metabolit e of oxycodone code = 62606-4) ng/mL Oxymorphone (test Not Cutoff: 25 Numorphan, Opana; Also a code = 48035-9) Detected ng/mL metabolite o f oxycodone. Yfzjsslofnl-0-ifxi Not Cutoff: 100 Metabolit e of oxymorphone -glucuronide (test Detected ng/mL and/or na loxone (nornaloxone) code = 39383-9) Noroxymorphone Present Cutoff: 25 A Metabolite of oxymorphone (test code = ng/mL and/or naloxone (nornaloxone) 76439-2) Fentanyl (test Not Cutoff: 2 Actiq, Durage sic, [place] code = 15842-0) Detected ng/mL Norfentanyl (test Not Cutoff: 2 Metabolite of fentanyl code = 82975-8) Detected ng/mL Meperidine (test Not Cutoff: 25 Demerol code = 16306-1) Detected ng/mL Normeperidine Not Cutoff: 25 Metabolite of meperidine (test code = Detected ng/mL 60406-3) Naloxone (test Not Cutoff: 25 Narcan code = 36224-6) Detected ng/mL Xmrhjqmo-4-egtq-gl Not Cutoff: 100 Metabolit e of naloxone ucuronide (test Detected ng/mL code = 60182-3) U Methadone (test Not Cutoff: 25 Dolophine code = 42506-2) Detected ng/mL EDDP (test code = Not Cutoff: 25 Metabolite of methadone 31254-2) Detected ng/mL Propoxyphene (test Not Cutoff: 25 Darvon, D arvocet code = 62682-4) Detected ng/mL Norpropoxyphene Not Cutoff: 25 Metabolite o f propoxyphene (test code = Detected ng/mL 04188-6) Tramadol (test Not Cutoff: 25 Tradol, Ultra m, Ultracet code = 13177-7) Detected ng/mL O-desmethyltramado Not Cutoff: 25 Metabolit e of tramadol l (test code = Detected ng/mL 76791-1) Tapentadol (test Not Cutoff: 25 Nucynta code = 33817-6) Detected ng/mL Afozgwzxrs-dwsx-pl Not Cutoff: 100 Metabolit e of tapentadol ucuronide (test Detected ng/mL code = 39365-7) Buprenorphine Not Cutoff: 5 Buprenex, Subo xone (test code = Detected ng/mL 58029-9) Norbuprenorphine Not Cutoff: 5 Metabolite of buprenorphine (test code = Detected ng/mL 87505-0) Norbuprenorphine Not Cutoff: 20 Metabolite of buprenorphine Glucuronide (test Detected ng/mL code = 40843-4) Benzodiazepine See Test detected the presence of Interp Urine (test Footnote alprazola m and two of code = 71710-0) itsmetabolit es (alpha-hydroxya lprazolam andalpha-hydrox yalprazolam glucuronide). S uspect use ofalprazolam wi thin the past three days. Hailey t detected the presence of zol pidem adppoe-8-ouqsgi ylicacid (metabolite of zolpidem) only. Suspect use of zolpidemwithin the past four d ays. ----ADDITIONAL INFORMATION---- T his test was de veloped and its performance characteristics determined by [facility] in a manner consistent with CLIArequirement s. This test has not been cleare d or approved bythe U.S. Food and Drug Administration. Alprazolam Urine Present Cutoff: 10 A Xanax (test code = ng/mL 89888-3) Alpha-Hydroxyalpra Present Cutoff: 10 A Metabolit e of Alprazolam zolam Urine (test ng/mL code = 09095-7) Alpha-Hydroxyalpra Present Cutoff: 50 A Metabolit e of Alprazolam zolam Glucuronide ng/mL Urine (test code = 54143-6) Chlordiazepoxide Not Cutoff: 10 Librium Urine (test code = Detected ng/mL 81336-2) Colbazam Urine Not Cutoff: 10 Frisium, Onfi (test code = Detected ng/mL 74596-3) N-Desmethylclobaza Not Cutoff: 200 Metabolit e of Clobazam m Urine (test code Detected ng/mL = 03635-1) Clonazepam Urine Not Cutoff: 10 Klonopin, R ivotril (test code = Detected ng/mL 17863-3) 7-Aminoclonazepam Not Cutoff: 10 Metabolite of Clonazepam Urine (test code = Detected ng/mL 63558-9) Diazepam Urine Not Cutoff: 10 Valium (test code = Detected ng/mL 48211-1) Nordiazepam Urine Not Cutoff: 10 Metabolite of Chlordiazepoxide, (test code = Detected ng/mL Diazepam, or Pr azepam. 60139-6) Flunitrazepam Not Cutoff: 10 Rohypnol Urine (test code = Detected ng/mL 74739-6) 7-Aminoflunitrazep Not Cutoff: 10 Metabolit e of Flunitrazepam am Urine (test Detected ng/mL code = 52732-0) FlUrinerazepam Not Cutoff: 10 Dalmane Urine (test code = Detected ng/mL 50809-2) 2-Hydroxy Ethyl Not Cutoff: 10 Metabolite o f Flurazepam Flurazepam Urine Detected ng/mL (test code = 81231-0) Lorazepam Urine Not Cutoff: 10 Ativan (test code = Detected ng/mL 84320-6) Lorazepam Not Cutoff: 50 Metabolite of L orazepam Glucuronide Urine Detected ng/mL (test code = 94807-9) Midazolam Urine Not Cutoff: 10 Versed (test code = Detected ng/mL 51448-3) Alpha-Hydroxy Not Cutoff: 10 Metabolite of Midazolam Midazolam Urine Detected ng/mL (test code = 36066-0) Oxazepam Urine Not Cutoff: 10 Serax; Also a metabolite of (test code = Detected ng/mL Chlordiazepoxid e, Diazepam, 08396-5) orTemazepam. Oxazepam Not Cutoff: 50 Metabolite of O xazepam Glucuronide Urine Detected ng/mL (test code = 41687-6) Prazepam Urine Not Cutoff: 10 Centrax (test code = Detected ng/mL 50551-9) Temazepam Urine Not Cutoff: 10 Restoril; Al so a metabolite of (test code = Detected ng/mL Diazepam. 91904-7) Temazepam Not Cutoff: 50 Metabolite of T emazepam Glucuronide Urine Detected ng/mL (test code = 40766-1) Triazolam Urine Not Cutoff: 10 Halcion (test code = Detected ng/mL ) Alpha-Hydroxy Not Cutoff: 10 Metabolite of Triazolam Triazolam Urine Detected ng/mL (test code = 72820-7) Zolpidem Urine Not Cutoff: 10 Ambien (test code = Detected ng/mL 76928-9) Zolpidem Present Cutoff: 10 A Metabolite of Z olpidem Juglx-1-Goxddlztid ng/mL Acid Urine (test code = 32398-9) Methamphetamine Not Cutoff: 100 Desoxyn (test code = Detected ng/mL 90432-7) Amphetamine (test Not Cutoff: 100 Dyanavel X R, Adzenys ER, code = 65234-5) Detected ng/mL Adderall, Vy vanse; Also ametabolite of methamphetamine 3,4-Methylenedioxy Not Cutoff: 100 methamphetamine Detected ng/mL (MDMA) (test code = 21345-9) 3,4-Methylenedioxy Not Cutoff: 100 -N-Ethylamphetamin Detected ng/mL e (MDEA) (test code = 12964-2) 3,4-Methylenedioxy Not Cutoff: 100 Also a me tabolite of MDMA amphetamine (MDA) Detected ng/mL and/or MDE A (test code = 92269-2) Ephedrine (test Not Cutoff: 100 code = 68416) Detected ng/mL Pseudoephedrine Present Cutoff: 100 A Sudafed (test code = ng/mL 54133) Phentermine (test Not Cutoff: 100 Adipex-P, Lomaira, Qsymia code = 97307-2) Detected ng/mL Phencyclidine Not Cutoff: 20 (PCP) (test code = Detected ng/mL 61924-6) Methylphenidate Not Cutoff: 20 Ritalin, Con certa (test code = Detected ng/mL 35361-9) Ritalinic acid Not Cutoff: 100 Metabolite of methylphenidate (test code = Detected ng/mL ) Stimulant See Test detected t he presence of Interpretation Footnote pseudoephedri ne. Suspect useof (test code = pseudoephedrine within the past 13884-2) three days. ----ADDITIONAL INFORMATION---- T his test was de veloped and its performance characteristics determined by [facility] in a manner consistent with Letiment s. This test has not been cleare d or approved bythe U.S. Food and Drug Administration. Test Performed by:[facility] [id number] [place], [place] [address]Bso Dir ronnie: Moe Guzman M.D. Ph.D.; CLIA# [id number] Patients Current NOT ---------ADDITIONAL Medications (test ANSWERED INFORMATIO N A code = 62012-0) ccuracy and completeness of declared medica tions onreports solely dependen t on information submitted bymarco a umaña. Lab Interpretation Abnormal (test code = 48706-3) [facility] [place], [id number] 09:20:34 Test Item Value Reference Interpretation Comments Range Urine Creatinine 55.1 mg/dL (test code = 2161-8) Urine Specific 1.014 [place] (test code = 5810-7) Urine Ph (test 6.2 code = 2756-5) Urine Oxidants Negative Cutoff: 200 (test code = mg/L 04959-2) Urine Comment Normal (test code = 94081-7) U Negative Cutoff: 200 Barbiturates-Luu ng/mL (test code = 02416-0) U Cocaine Lvl-[place] Negative Cutoff: 150 This coca ine immunoassay (test code = ng/mL targets benzoyl ecgonine 68624-2) theprimary meta bolite of cocaine. U THC-[place] (test See Cutoff: 50 A RESULT: Pre sumptive code = 52332-9) Footnote ng/mL PositiveThis immunoassay targets delta-9 tetrahydrocanna [...] code Not Cutoff: 25 Tylenol 3 = 52953-8) Detected ng/mL Seiulru-0-pbjo-glu Not Cutoff: 100 Metabolit e of codeine curonide (test Detected ng/mL code = 22806-0) Morphine (test Not Cutoff: 25 Avinza, Gayle n, MS Contin; Also code = 94030-9) Detected ng/mL a minor meta bolite (10%) ofcodeine and c an be seen in low concentrati ons (<2,000ng/mL) w ith poppy seed ingestion. Epkscheb-2-ocqc-gl Not Cutoff: 100 Metabolit e of morphine ucuronide (test Detected ng/mL code = 32569-4) 6-monoacetylmorphi Not Cutoff: 25 Metabolit e of heroin ne (test code = Detected ng/mL 52308-3) Hydrocodone (test Not Cutoff: 25 Lortab, No rco, Vicodin; Also a code = 22126-7) Detected ng/mL very minor m etabolite ofcodeine and impurity (< 1%) of oxycodone. Norhydrocodone Not Cutoff: 25 Metabolite of hydrocodone (test code = Detected ng/mL 70777-0) Dihydrocodeine Not Cutoff: 25 Metabolite of hydrocodone (test code = Detected ng/mL 13561-5) Hydromorphone Not Cutoff: 25 Dilaudid, Exal go; Also a (test code = Detected ng/mL metabolite of h ydrocodone and 81757-0) aminor (<5%) me tabolite of morphine. Ectvyecrncyby-1-fq Not Cutoff: 100 Metabolit e of hydromorphone ta-glucuronide Detected ng/mL (test code = 64031-7) Oxycodone (test Present Cutoff: 25 A Endocet, Per cocet, Oxycontin code = 29046-2) ng/mL Noroxycodone (test Present Cutoff: 25 A Metabolit e of oxycodone code = 92601-2) ng/mL Oxymorphone (test Not Cutoff: 25 Numorphan, Opana; Also a code = 75011-6) Detected ng/mL metabolite o f oxycodone. Cnlgsflmjbg-9-fdqu Not Cutoff: 100 Metabolit e of oxymorphone -glucuronide (test Detected ng/mL and/or na loxone (nornaloxone) code = 88961-4) Noroxymorphone Present Cutoff: 25 A Metabolite of oxymorphone (test code = ng/mL and/or naloxone (nornaloxone) 93164-1) Fentanyl (test Not Cutoff: 2 Actiq, Durage sic, [place] code = 06785-8) Detected ng/mL Norfentanyl (test Not Cutoff: 2 Metabolite of fentanyl code = 36707-4) Detected ng/mL Meperidine (test Not Cutoff: 25 Demerol code = 32627-2) Detected ng/mL Normeperidine Not Cutoff: 25 Metabolite of meperidine (test code = Detected ng/mL 43153-7) Naloxone (test Not Cutoff: 25 Narcan code = 91978-3) Detected ng/mL Fpdxjvqk-0-qwqb-gl Not Cutoff: 100 Metabolit e of naloxone ucuronide (test Detected ng/mL code = 88182-5) U Methadone (test Not Cutoff: 25 Dolophine code = 89903-3) Detected ng/mL EDDP (test code = Not Cutoff: 25 Metabolite of methadone 98136-9) Detected ng/mL Propoxyphene (test Not Cutoff: 25 Darvon, D arvocet code = 53942-9) Detected ng/mL Norpropoxyphene Not Cutoff: 25 Metabolite o f propoxyphene (test code = Detected ng/mL 65443-4) Tramadol (test Not Cutoff: 25 Tradol, Ultra m, Ultracet code = 59719-5) Detected ng/mL O-desmethyltramado Not Cutoff: 25 Metabolit e of tramadol l (test code = Detected ng/mL 33106-0) Tapentadol (test Not Cutoff: 25 Nucynta code = 61505-4) Detected ng/mL Mhnvswxpyd-erry-mf Not Cutoff: 100 Metabolit e of tapentadol ucuronide (test Detected ng/mL code = 38419-8) Buprenorphine Not Cutoff: 5 Buprenex, Subo xone (test code = Detected ng/mL 59602-5) Norbuprenorphine Not Cutoff: 5 Metabolite of buprenorphine (test code = Detected ng/mL 44436-3) Norbuprenorphine Not Cutoff: 20 Metabolite of buprenorphine Glucuronide (test Detected ng/mL code = 00114-3) Benzodiazepine See Test detected the presence of Interp Urine (test Footnote alprazola m and two of code = 24478-8) itsmetabolit es (alpha-hydroxya lprazolam andalpha-hydrox yalprazolam glucuronide). S uspect use ofalprazolam wi thin the past three days. Hailey t detected the presence of zol pidem wzkmvg-2-xrogxi ylicacid (metabolite of zolpidem) only. Suspect use of zolpidemwithin the past four d ays. ----ADDITIONAL INFORMATION---- T his test was de veloped and its performance characteristics determined by [facility] in a manner consistent with CLIArequirement s. This test has not been cleare d or approved bythe U.S. Food and Drug Administration. Alprazolam Urine Present Cutoff: 10 A Xanax (test code = ng/mL 70520-5) Alpha-Hydroxyalpra Present Cutoff: 10 A Metabolit e of Alprazolam zolam Urine (test ng/mL code = 12296-9) Alpha-Hydroxyalpra Present Cutoff: 50 A Metabolit e of Alprazolam zolam Glucuronide ng/mL Urine (test code = 06024-9) Chlordiazepoxide Not Cutoff: 10 Librium Urine (test code = Detected ng/mL 63278-5) Colbazam Urine Not Cutoff: 10 Frisium, Onfi (test code = Detected ng/mL 92299-1) N-Desmethylclobaza Not Cutoff: 200 Metabolit e of Clobazam m Urine (test code Detected ng/mL = 10291-2) Clonazepam Urine Not Cutoff: 10 Klonopin, R ivotril (test code = Detected ng/mL 16620-0) 7-Aminoclonazepam Not Cutoff: 10 Metabolite of Clonazepam Urine (test code = Detected ng/mL 53546-7) Diazepam Urine Not Cutoff: 10 Valium (test code = Detected ng/mL 19900-1) Nordiazepam Urine Not Cutoff: 10 Metabolite of Chlordiazepoxide, (test code = Detected ng/mL Diazepam, or Pr azepam. 01290-3) Flunitrazepam Not Cutoff: 10 Rohypnol Urine (test code = Detected ng/mL 23246-8) 7-Aminoflunitrazep Not Cutoff: 10 Metabolit e of Flunitrazepam am Urine (test Detected ng/mL code = 79079-9) FlUrinerazepam Not Cutoff: 10 Dalmane Urine (test code = Detected ng/mL 83025-2) 2-Hydroxy Ethyl Not Cutoff: 10 Metabolite o f Flurazepam Flurazepam Urine Detected ng/mL (test code = 50253-1) Lorazepam Urine Not Cutoff: 10 Ativan (test code = Detected ng/mL 40402-4) Lorazepam Not Cutoff: 50 Metabolite of L orazepam Glucuronide Urine Detected ng/mL (test code = 71399-7) Midazolam Urine Not Cutoff: 10 Versed (test code = Detected ng/mL 03071-3) Alpha-Hydroxy Not Cutoff: 10 Metabolite of Midazolam Midazolam Urine Detected ng/mL (test code = 16999-5) Oxazepam Urine Not Cutoff: 10 Serax; Also a metabolite of (test code = Detected ng/mL Chlordiazepoxid e, Diazepam, 12524-8) orTemazepam. Oxazepam Not Cutoff: 50 Metabolite of O xazepam Glucuronide Urine Detected ng/mL (test code = 79606-0) Prazepam Urine Not Cutoff: 10 Centrax (test code = Detected ng/mL 19597-6) Temazepam Urine Not Cutoff: 10 Restoril; Al so a metabolite of (test code = Detected ng/mL Diazepam. 48371-5) Temazepam Not Cutoff: 50 Metabolite of T emazepam Glucuronide Urine Detected ng/mL (test code = 66126-6) Triazolam Urine Not Cutoff: 10 Halcion (test code = Detected ng/mL 46745-5) Alpha-Hydroxy Not Cutoff: 10 Metabolite of Triazolam Triazolam Urine Detected ng/mL (test code = 15583-5) Zolpidem Urine Not Cutoff: 10 Ambien (test code = Detected ng/mL 79103-8) Zolpidem Present Cutoff: 10 A Metabolite of Z olpidem Zxcpg-5-Iblwebjoet ng/mL Acid Urine (test code = 80519-1) Methamphetamine Not Cutoff: 100 Desoxyn (test code = Detected ng/mL 96246-8) Amphetamine (test Not Cutoff: 100 Dyanavel X R, Adzenys ER, code = 13124-2) Detected ng/mL Adderall, Vy vanse; Also ametabolite of methamphetamine 3,4-Methylenedioxy Not Cutoff: 100 methamphetamine Detected ng/mL (MDMA) (test code = 33534-7) 3,4-Methylenedioxy Not Cutoff: 100 -N-Ethylamphetamin Detected ng/mL e (MDEA) (test code = 60824-0) 3,4-Methylenedioxy Not Cutoff: 100 Also a me tabolite of MDMA amphetamine (MDA) Detected ng/mL and/or MDE A (test code = 55888-1) Ephedrine (test Not Cutoff: 100 code = 56971) Detected ng/mL Pseudoephedrine Present Cutoff: 100 A Sudafed (test code = ng/mL 91159) Phentermine (test Not Cutoff: 100 Adipex-PStacey Qsymia code = 24205-7) Detected ng/mL Phencyclidine Not Cutoff: 20 (PCP) (test code = Detected ng/mL ) Methylphenidate Not Cutoff: 20 Ritalin, Con certa (test code = Detected ng/mL 22016-9) Ritalinic acid Not Cutoff: 100 Metabolite of methylphenidate (test code = Detected ng/mL ) Stimulant See Test detected t he presence of Interpretation Footnote pseudoephedri ne. Suspect useof (test code = pseudoephedrine within the past 52812-7) three days. ----ADDITIONAL INFORMATION---- T his test was de veloped and its performance characteristics determined by [facility] in a manner consistent with CLIArequirement s. This test has not been cleare d or approved bythe U.S. Food and Drug Administration. Test Performed by:[facility] [id number] [place], [place] [address]Gga Dir ronnie: Moe Guzman M.D. Ph.D.; CLIA# [id number] Patients Current NOT ---------ADDITIONAL Medications (test ANSWERED INFORMATIO N A code = 63872-1) ccuracy and completeness of declared medica tions onreports solely dependen t on information submitted bymarco a umaña. Lab Interpretation Abnormal (test code = 66645-7) [facility], [id number] 09:20:34 Test Item Value Reference Interpretation Comments Range Urine Creatinine 55.1 mg/dL (test code = 2161-8) Urine Specific 1.014 [place] (test code = 5810-7) Urine Ph (test 6.2 code = 2756-5) Urine Oxidants Negative Cutoff: 200 (test code = mg/L 31857-2) Urine Comment Normal (test code = 53308-5) U Negative Cutoff: 200 Barbiturates-[place] ng/mL (test code = 98036-5) U Cocaine Lvl-[place] Negative Cutoff: 150 This coca ine immunoassay (test code = ng/mL targets benzoyl ecgonine 49589-0) theprimary meta bolite of cocaine. U THC-[place] (test See Cutoff: 50 A RESULT: Pre sumptive code = 27699-5) Footnote ng/mL PositiveThis immunoassay targets delta-9 tetrahydrocanna [...] code Not Cutoff: 25 Tylenol 3 = 50736-7) Detected ng/mL Eqxsrkj-6-rubq-glu Not Cutoff: 100 Metabolit e of codeine curonide (test Detected ng/mL code = 47327-4) Morphine (test Not Cutoff: 25 Gayle Mary n, MS Contin; Also code = 98915-0) Detected ng/mL a minor meta bolite (10%) ofcodeine and c an be seen in low concentrati ons (<2,000ng/mL) w ith poppy seed ingestion. Nzeahhnn-1-xfue-gl Not Cutoff: 100 Metabolit e of morphine ucuronide (test Detected ng/mL code = 13476-0) 6-monoacetylmorphi Not Cutoff: 25 Metabolit e of heroin ne (test code = Detected ng/mL 77990-9) Hydrocodone (test Not Cutoff: 25 Lortab, No rco, Vicodin; Also a code = 96025-3) Detected ng/mL very minor m etabolite ofcodeine and impurity (< 1%) of oxycodone. Norhydrocodone Not Cutoff: 25 Metabolite of hydrocodone (test code = Detected ng/mL 83782-2) Dihydrocodeine Not Cutoff: 25 Metabolite of hydrocodone (test code = Detected ng/mL 54677-1) Hydromorphone Not Cutoff: 25 Dilaudid, Exal go; Also a (test code = Detected ng/mL metabolite of h ydrocodone and 05257-1) aminor (<5%) me tabolite of morphine. Zhkvhbjfjroqd-8-ud Not Cutoff: 100 Metabolit e of hydromorphone ta-glucuronide Detected ng/mL (test code = 65430-1) Oxycodone (test Present Cutoff: 25 A Endocet, Per cocet, Oxycontin code = 06363-2) ng/mL Noroxycodone (test Present Cutoff: 25 A Metabolit e of oxycodone code = 05391-6) ng/mL Oxymorphone (test Not Cutoff: 25 Numorphan, Opana; Also a code = 71967-3) Detected ng/mL metabolite o f oxycodone. Fssizamesig-3-dczv Not Cutoff: 100 Metabolit e of oxymorphone -glucuronide (test Detected ng/mL and/or na loxone (nornaloxone) code = 14995-3) Noroxymorphone Present Cutoff: 25 A Metabolite of oxymorphone (test code = ng/mL and/or naloxone (nornaloxone) 83149-7) Fentanyl (test Not Cutoff: 2 Actiq, Durage sic, [place]ora code = 17102-8) Detected ng/mL Norfentanyl (test Not Cutoff: 2 Metabolite of fentanyl code = 74252-5) Detected ng/mL Meperidine (test Not Cutoff: 25 Demerol code = 22581-7) Detected ng/mL Normeperidine Not Cutoff: 25 Metabolite of meperidine (test code = Detected ng/mL 01015-6) Naloxone (test Not Cutoff: 25 Narcan code = 75405-0) Detected ng/mL Wlegxuea-3-uxaj-gl Not Cutoff: 100 Metabolit e of naloxone ucuronide (test Detected ng/mL code = 33463-5) U Methadone (test Not Cutoff: 25 Dolophine code = 30868-1) Detected ng/mL EDDP (test code = Not Cutoff: 25 Metabolite of methadone 11226-2) Detected ng/mL Propoxyphene (test Not Cutoff: 25 Darvon, D arvocet code = 56578-3) Detected ng/mL Norpropoxyphene Not Cutoff: 25 Metabolite o f propoxyphene (test code = Detected ng/mL 64351-2) Tramadol (test Not Cutoff: 25 Tradol, Ultra m, Ultracet code = 83683-6) Detected ng/mL O-desmethyltramado Not Cutoff: 25 Metabolit e of tramadol l (test code = Detected ng/mL 90073-3) Tapentadol (test Not Cutoff: 25 Nucynta code = 07784-3) Detected ng/mL Xqgwnenjya-voqs-wn Not Cutoff: 100 Metabolit e of tapentadol ucuronide (test Detected ng/mL code = 05377-2) Buprenorphine Not Cutoff: 5 Buprenex, Subo xone (test code = Detected ng/mL 22517-1) Norbuprenorphine Not Cutoff: 5 Metabolite of buprenorphine (test code = Detected ng/mL 75011-1) Norbuprenorphine Not Cutoff: 20 Metabolite of buprenorphine Glucuronide (test Detected ng/mL code = 55399-7) Benzodiazepine See Test detected the presence of Interp Urine (test Footnote alprazola m and two of code = 36374-6) itsmetabolit es (alpha-hydroxya lprazolam andalpha-hydrox yalprazolam glucuronide). S uspect use ofalprazolam wi thin the past three days. Hailey t detected the presence of zol pidem mggrgg-0-qrugxy ylicacid (metabolite of zolpidem) only. Suspect use of zolpidemwithin the past four d ays. ----ADDITIONAL INFORMATION---- T his test was de veloped and its performance characteristics determined by [facility] in a manner consistent with CLIArequirement s. This test has not been cleare d or approved bythe U.S. Food and Drug Administration. Alprazolam Urine Present Cutoff: 10 A Xanax (test code = ng/mL 90680-4) Alpha-Hydroxyalpra Present Cutoff: 10 A Metabolit e of Alprazolam zolam Urine (test ng/mL code = 86777-1) Alpha-Hydroxyalpra Present Cutoff: 50 A Metabolit e of Alprazolam zolam Glucuronide ng/mL Urine (test code = 39375-8) Chlordiazepoxide Not Cutoff: 10 Librium Urine (test code = Detected ng/mL 90228-0) Colbazam Urine Not Cutoff: 10 Frisium, Onfi (test code = Detected ng/mL 20422-6) N-Desmethylclobaza Not Cutoff: 200 Metabolit e of Clobazam m Urine (test code Detected ng/mL = 62314-3) Clonazepam Urine Not Cutoff: 10 Klonopin, R ivotril (test code = Detected ng/mL 82979-8) 7-Aminoclonazepam Not Cutoff: 10 Metabolite of Clonazepam Urine (test code = Detected ng/mL 18944-7) Diazepam Urine Not Cutoff: 10 Valium (test code = Detected ng/mL 30328-3) Nordiazepam Urine Not Cutoff: 10 Metabolite of Chlordiazepoxide, (test code = Detected ng/mL Diazepam, or Pr azepam. 33822-2) Flunitrazepam Not Cutoff: 10 Rohypnol Urine (test code = Detected ng/mL 59450-2) 7-Aminoflunitrazep Not Cutoff: 10 Metabolit e of Flunitrazepam am Urine (test Detected ng/mL code = 86375-7) FlUrinerazepam Not Cutoff: 10 Dalmane Urine (test code = Detected ng/mL 13703-7) 2-Hydroxy Ethyl Not Cutoff: 10 Metabolite o f Flurazepam Flurazepam Urine Detected ng/mL (test code = 89095-5) Lorazepam Urine Not Cutoff: 10 Ativan (test code = Detected ng/mL 72308-3) Lorazepam Not Cutoff: 50 Metabolite of L orazepam Glucuronide Urine Detected ng/mL (test code = 17312-1) Midazolam Urine Not Cutoff: 10 Versed (test code = Detected ng/mL 21912-4) Alpha-Hydroxy Not Cutoff: 10 Metabolite of Midazolam Midazolam Urine Detected ng/mL (test code = 65128-0) Oxazepam Urine Not Cutoff: 10 Serax; Also a metabolite of (test code = Detected ng/mL Chlordiazepoxid e, Diazepam, 96045-6) orTemazepam. Oxazepam Not Cutoff: 50 Metabolite of O xazepam Glucuronide Urine Detected ng/mL (test code = 86370-5) Prazepam Urine Not Cutoff: 10 Centrax (test code = Detected ng/mL 44030-9) Temazepam Urine Not Cutoff: 10 Restoril; Al so a metabolite of (test code = Detected ng/mL Diazepam. 24770-3) Temazepam Not Cutoff: 50 Metabolite of T emazepam Glucuronide Urine Detected ng/mL (test code = 56067-4) Triazolam Urine Not Cutoff: 10 Halcion (test code = Detected ng/mL 42677-0) Alpha-Hydroxy Not Cutoff: 10 Metabolite of Triazolam Triazolam Urine Detected ng/mL (test code = 90901-7) Zolpidem Urine Not Cutoff: 10 Ambien (test code = Detected ng/mL 25803-5) Zolpidem Present Cutoff: 10 A Metabolite of Z olpidem Xmyjm-2-Zludkvdmbu ng/mL Acid Urine (test code = 39704-5) Methamphetamine Not Cutoff: 100 Desoxyn (test code = Detected ng/mL 55157-1) Amphetamine (test Not Cutoff: 100 Dyanavel X R, Adzenys ER, code = 78973-6) Detected ng/mL Adderall, Vy vanse; Also ametabolite of methamphetamine 3,4-Methylenedioxy Not Cutoff: 100 methamphetamine Detected ng/mL (MDMA) (test code = 49527-1) 3,4-Methylenedioxy Not Cutoff: 100 -N-Ethylamphetamin Detected ng/mL e (MDEA) (test code = 68760-9) 3,4-Methylenedioxy Not Cutoff: 100 Also a me tabolite of MDMA amphetamine (MDA) Detected ng/mL and/or MDE A (test code = 26624-4) Ephedrine (test Not Cutoff: 100 code = 63470) Detected ng/mL Pseudoephedrine Present Cutoff: 100 A Sudafed (test code = ng/mL 34085) Phentermine (test Not Cutoff: 100 Adipex-P, Heathermaira, Qsymia code = 37332-7) Detected ng/mL Phencyclidine Not Cutoff: 20 (PCP) (test code = Detected ng/mL 10177-7) Methylphenidate Not Cutoff: 20 Ritalin, Con certa (test code = Detected ng/mL 98104-0) Ritalinic acid Not Cutoff: 100 Metabolite of methylphenidate (test code = Detected ng/mL 48936) Stimulant See Test detected t he presence of Interpretation Footnote pseudoephedri ne. Suspect useof (test code = pseudoephedrine within the past 34770-7) three days. ----ADDITIONAL INFORMATION---- T his test was de veloped and its performance characteristics determined by [facility] in a manner consistent with CLJasminequirement s. This test has not been cleare d or approved bythe U.S. Food and Drug Administration. Test Performed by:[facility] [address] [place], [place] [address]Uev Dir ronnie: Moe Guzman M.D. Ph.D.; CLIA# [id number] Patients Current NOT ---------ADDITIONAL Medications (test ANSWERED INFORMATIO N A code = 43872-5) ccuracy and completeness of declared medica tions onreports solely dependen t on information submitted byshanei ent. Lab Interpretation Abnormal (test code = 76069-6) [facility] [place], [id number] 09:20:34 Test Item Value Reference Interpretation Comments Range Urine Creatinine 55.1 mg/dL (test code = 2161-8) Urine Specific 1.014 [place] (test code = 5810-7) Urine Ph (test 6.2 code = 2756-5) Urine Oxidants Negative Cutoff: 200 (test code = mg/L 44407-5) Urine Comment Normal (test code = 41510-4) U Negative Cutoff: 200 Barbiturates-[place] ng/mL (test code = 28481-5) U Cocaine Lvl-[place] Negative Cutoff: 150 This coca ine immunoassay (test code = ng/mL targets benzoyl ecgonine ) theprimary meta bolite of cocaine. U THC-[place] (test See Cutoff: 50 A RESULT: Pre sumptive code = 50566-1) Footnote ng/mL PositiveThis immunoassay targets delta-9 tetrahydrocanna [...] code Not Cutoff: 25 Tylenol 3 = 94415-5) Detected ng/mL Sxkgpmz-4-tvji-glu Not Cutoff: 100 Metabolit e of codeine curonide (test Detected ng/mL code = 22123-6) Morphine (test Not Cutoff: 25 Gayle Mary n, MS Contin; Also code = 20440-2) Detected ng/mL a minor meta bolite (10%) ofcodeine and c an be seen in low concentrati ons (<2,000ng/mL) w ith poppy seed ingestion. Sntraxrw-7-mfzm-gl Not Cutoff: 100 Metabolit e of morphine ucuronide (test Detected ng/mL code = 42178-1) 6-monoacetylmorphi Not Cutoff: 25 Metabolit e of heroin ne (test code = Detected ng/mL 40575-3) Hydrocodone (test Not Cutoff: 25 Lortab, No rco, Vicodin; Also a code = 16077-7) Detected ng/mL very minor m etabolite ofcodeine and impurity (< 1%) of oxycodone. Norhydrocodone Not Cutoff: 25 Metabolite of hydrocodone (test code = Detected ng/mL 15559-8) Dihydrocodeine Not Cutoff: 25 Metabolite of hydrocodone (test code = Detected ng/mL 46825-8) Hydromorphone Not Cutoff: 25 Dilaudid, Exal go; Also a (test code = Detected ng/mL metabolite of h ydrocodone and 51290-1) aminor (<5%) me tabolite of morphine. Eawuxfrivkpow-9-og Not Cutoff: 100 Metabolit e of hydromorphone ta-glucuronide Detected ng/mL (test code = 99516-1) Oxycodone (test Present Cutoff: 25 A Endocet, Per cocet, Oxycontin code = 07110-2) ng/mL Noroxycodone (test Present Cutoff: 25 A Metabolit e of oxycodone code = 76473-6) ng/mL Oxymorphone (test Not Cutoff: 25 Numorphan, Opana; Also a code = 70245-0) Detected ng/mL metabolite o f oxycodone. Qdbodunldvr-2-waae Not Cutoff: 100 Metabolit e of oxymorphone -glucuronide (test Detected ng/mL and/or na loxone (nornaloxone) code = 97521-5) Noroxymorphone Present Cutoff: 25 A Metabolite of oxymorphone (test code = ng/mL and/or naloxone (nornaloxone) 72400-5) Fentanyl (test Not Cutoff: 2 Actiq, Durage sic, [place]ora code = 99015-9) Detected ng/mL Norfentanyl (test Not Cutoff: 2 Metabolite of fentanyl code = 01104-2) Detected ng/mL Meperidine (test Not Cutoff: 25 Demerol code = 38216-3) Detected ng/mL Normeperidine Not Cutoff: 25 Metabolite of meperidine (test code = Detected ng/mL 11410-0) Naloxone (test Not Cutoff: 25 Narcan code = 83559-4) Detected ng/mL Npwlfwon-0-nfgg-gl Not Cutoff: 100 Metabolit e of naloxone ucuronide (test Detected ng/mL code = 28664-5) U Methadone (test Not Cutoff: 25 Dolophine code = 61384-8) Detected ng/mL EDDP (test code = Not Cutoff: 25 Metabolite of methadone 45434-7) Detected ng/mL Propoxyphene (test Not Cutoff: 25 Darvon, D arvocet code = 11620-1) Detected ng/mL Norpropoxyphene Not Cutoff: 25 Metabolite o f propoxyphene (test code = Detected ng/mL 62643-5) Tramadol (test Not Cutoff: 25 Tradol, Ultra m, Ultracet code = 27768-1) Detected ng/mL O-desmethyltramado Not Cutoff: 25 Metabolit e of tramadol l (test code = Detected ng/mL 22505-7) Tapentadol (test Not Cutoff: 25 Nucynta code = 96736-3) Detected ng/mL Gaihyrzbkh-bswf-du Not Cutoff: 100 Metabolit e of tapentadol ucuronide (test Detected ng/mL code = 70695-6) Buprenorphine Not Cutoff: 5 Buprenex, Subo xone (test code = Detected ng/mL 34764-8) Norbuprenorphine Not Cutoff: 5 Metabolite of buprenorphine (test code = Detected ng/mL 19851-3) Norbuprenorphine Not Cutoff: 20 Metabolite of buprenorphine Glucuronide (test Detected ng/mL code = 34521-2) Benzodiazepine See Test detected the presence of Interp Urine (test Footnote alprazola m and two of code = 04223-5) itsmetabolit es (alpha-hydroxya lprazolam andalpha-hydrox yalprazolam glucuronide). S uspect use ofalprazolam wi thin the past three days. Hailey t detected the presence of zol pidem nfvzjh-4-fbkxto ylicacid (metabolite of zolpidem) only. Suspect use of zolpidemwithin the past four d ays. ----ADDITIONAL INFORMATION---- T his test was de veloped and its performance characteristics determined by [facility] in a manner consistent with CLIArequirement s. This test has not been cleare d or approved bythe U.S. Food and Drug Administration. Alprazolam Urine Present Cutoff: 10 A Xanax (test code = ng/mL 71721-1) Alpha-Hydroxyalpra Present Cutoff: 10 A Metabolit e of Alprazolam zolam Urine (test ng/mL code = 95829-7) Alpha-Hydroxyalpra Present Cutoff: 50 A Metabolit e of Alprazolam zolam Glucuronide ng/mL Urine (test code = 68241-7) Chlordiazepoxide Not Cutoff: 10 Librium Urine (test code = Detected ng/mL 94343-1) Colbazam Urine Not Cutoff: 10 Frisium, Onfi (test code = Detected ng/mL 27369-6) N-Desmethylclobaza Not Cutoff: 200 Metabolit e of Clobazam m Urine (test code Detected ng/mL = 71275-7) Clonazepam Urine Not Cutoff: 10 Klonopin, R ivotril (test code = Detected ng/mL 66040-7) 7-Aminoclonazepam Not Cutoff: 10 Metabolite of Clonazepam Urine (test code = Detected ng/mL 47445-6) Diazepam Urine Not Cutoff: 10 Valium (test code = Detected ng/mL 81054-8) Nordiazepam Urine Not Cutoff: 10 Metabolite of Chlordiazepoxide, (test code = Detected ng/mL Diazepam, or Pr azepam. 77455-5) Flunitrazepam Not Cutoff: 10 Rohypnol Urine (test code = Detected ng/mL 83302-8) 7-Aminoflunitrazep Not Cutoff: 10 Metabolit e of Flunitrazepam am Urine (test Detected ng/mL code = 49660-2) FlUrinerazepam Not Cutoff: 10 Dalmane Urine (test code = Detected ng/mL 80828-9) 2-Hydroxy Ethyl Not Cutoff: 10 Metabolite o f Flurazepam Flurazepam Urine Detected ng/mL (test code = 64026-0) Lorazepam Urine Not Cutoff: 10 Ativan (test code = Detected ng/mL 90660-0) Lorazepam Not Cutoff: 50 Metabolite of L orazepam Glucuronide Urine Detected ng/mL (test code = 52397-3) Midazolam Urine Not Cutoff: 10 Versed (test code = Detected ng/mL 43994-5) Alpha-Hydroxy Not Cutoff: 10 Metabolite of Midazolam Midazolam Urine Detected ng/mL (test code = 17809-2) Oxazepam Urine Not Cutoff: 10 Serax; Also a metabolite of (test code = Detected ng/mL Chlordiazepoxid e, Diazepam, 87383-5) orTemazepam. Oxazepam Not Cutoff: 50 Metabolite of O xazepam Glucuronide Urine Detected ng/mL (test code = 43568-7) Prazepam Urine Not Cutoff: 10 Centrax (test code = Detected ng/mL 22156-8) Temazepam Urine Not Cutoff: 10 Restoril; Al so a metabolite of (test code = Detected ng/mL Diazepam. 84342-1) Temazepam Not Cutoff: 50 Metabolite of T emazepam Glucuronide Urine Detected ng/mL (test code = 48587-3) Triazolam Urine Not Cutoff: 10 Halcion (test code = Detected ng/mL 21470-9) Alpha-Hydroxy Not Cutoff: 10 Metabolite of Triazolam Triazolam Urine Detected ng/mL (test code = 73673-3) Zolpidem Urine Not Cutoff: 10 Ambien (test code = Detected ng/mL 62321-7) Zolpidem Present Cutoff: 10 A Metabolite of Z olpidem Iofrh-2-Zokkmjxxtu ng/mL Acid Urine (test code = 12226-6) Methamphetamine Not Cutoff: 100 Desoxyn (test code = Detected ng/mL 18763-0) Amphetamine (test Not Cutoff: 100 Dyanavel X R, Adzenys ER, code = 62123-5) Detected ng/mL Adderall, Vy vanse; Also ametabolite of methamphetamine 3,4-Methylenedioxy Not Cutoff: 100 methamphetamine Detected ng/mL (MDMA) (test code = 24358-6) 3,4-Methylenedioxy Not Cutoff: 100 -N-Ethylamphetamin Detected ng/mL e (MDEA) (test code = 60965-2) 3,4-Methylenedioxy Not Cutoff: 100 Also a me tabolite of MDMA amphetamine (MDA) Detected ng/mL and/or MDE A (test code = 91653-7) Ephedrine (test Not Cutoff: 100 code = 73831) Detected ng/mL Pseudoephedrine Present Cutoff: 100 A Sudafed (test code = ng/mL 15567) Phentermine (test Not Cutoff: 100 Adipex-P, [place]omaira, Qsymglenn code = 08364-3) Detected ng/mL Phencyclidine Not Cutoff: 20 (PCP) (test code = Detected ng/mL ) Methylphenidate Not Cutoff: 20 Ritalin, Con certa (test code = Detected ng/mL 19470-6) Ritalinic acid Not Cutoff: 100 Metabolite of methylphenidate (test code = Detected ng/mL 17754) Stimulant See Test detected t he presence of Interpretation Footnote pseudoephedri ne. Suspect useof (test code = pseudoephedrine within the past 46026-7) three days. ----ADDITIONAL INFORMATION---- T his test was de veloped and its performance characteristics determined by [facility] in a manner consistent with CLIArequirement s. This test has not been cleare d or approved bythe U.S. Food and Drug Administration. [facility] [address] [place], [place] [address]Kkb Dir ronnie: Moe Guzman M.D. Ph.D.; CLIA# [id number] Patients Current NOT ---------ADDITIONAL Medications (test ANSWERED INFORMATIO N A code = 36487-6) ccuracy and completeness of declared medica tions onreports solely dependen t on information submitted bymarco a umaña. Lab Interpretation Abnormal (test code = 74446-1) [facility] [place], [id number] 09:20:34 Test Item Value Reference Interpretation Comments Range Urine Creatinine 55.1 mg/dL (test code = 2161-8) Urine Specific 1.014 [place] (test code = 5810-7) Urine Ph (test 6.2 code = 2756-5) Urine Oxidants Negative Cutoff: 200 (test code = mg/L 94646-3) Urine Comment Normal (test code = 48460-9) U Negative Cutoff: 200 Barbiturates-Luu ng/mL (test code = 72519-2) U Cocaine Lvl-[place] Negative Cutoff: 150 This coca ine immunoassay (test code = ng/mL targets benzoyl ecgonine ) theprimary meta bolite of cocaine. U THC-[place] (test See Cutoff: 50 A RESULT: Pre sumptive code = 01763-3) Footnote ng/mL PositiveThis immunoassay targets delta-9 tetrahydrocanna [...] code Not Cutoff: 25 Tylenol 3 = 98546-6) Detected ng/mL Kewbxiu-5-tttm-glu Not Cutoff: 100 Metabolit e of codeine curonide (test Detected ng/mL code = 70345-0) Morphine (test Not Cutoff: 25 Gayle Mary n, MS Contin; Also code = 92792-1) Detected ng/mL a minor meta bolite (10%) ofcodeine and c an be seen in low concentrati ons (<2,000ng/mL) w ith poppy seed ingestion. Ofmvlxzr-6-uscg-gl Not Cutoff: 100 Metabolit e of morphine ucuronide (test Detected ng/mL code = 74256-0) 6-monoacetylmorphi Not Cutoff: 25 Metabolit e of heroin ne (test code = Detected ng/mL 55051-5) Hydrocodone (test Not Cutoff: 25 Lortab, No rco, Vicodin; Also a code = 95311-6) Detected ng/mL very minor m etabolite ofcodeine and impurity (< 1%) of oxycodone. Norhydrocodone Not Cutoff: 25 Metabolite of hydrocodone (test code = Detected ng/mL 69653-5) Dihydrocodeine Not Cutoff: 25 Metabolite of hydrocodone (test code = Detected ng/mL 60554-0) Hydromorphone Not Cutoff: 25 Dilaudid, Exal go; Also a (test code = Detected ng/mL metabolite of h ydrocodone and 76337-3) aminor (<5%) me tabolite of morphine. Neejtobgzubry-7-ve Not Cutoff: 100 Metabolit e of hydromorphone ta-glucuronide Detected ng/mL (test code = 14144-3) Oxycodone (test Present Cutoff: 25 A Endocet, Per cocet, Oxycontin code = 65971-7) ng/mL Noroxycodone (test Present Cutoff: 25 A Metabolit e of oxycodone code = 87590-6) ng/mL Oxymorphone (test Not Cutoff: 25 Numorphan, Opana; Also a code = 78109-6) Detected ng/mL metabolite o f oxycodone. Kxrztaltqdo-7-idlm Not Cutoff: 100 Metabolit e of oxymorphone -glucuronide (test Detected ng/mL and/or na loxone (nornaloxone) code = 79483-6) Noroxymorphone Present Cutoff: 25 A Metabolite of oxymorphone (test code = ng/mL and/or naloxone (nornaloxone) 99232-5) Fentanyl (test Not Cutoff: 2 Actiq, Durage sic, [place] code = 06865-6) Detected ng/mL Norfentanyl (test Not Cutoff: 2 Metabolite of fentanyl code = 25934-9) Detected ng/mL Meperidine (test Not Cutoff: 25 Demerol code = 75443-1) Detected ng/mL Normeperidine Not Cutoff: 25 Metabolite of meperidine (test code = Detected ng/mL 64696-5) Naloxone (test Not Cutoff: 25 Narcan code = 18542-5) Detected ng/mL Lzsbacwu-1-hdim-gl Not Cutoff: 100 Metabolit e of naloxone ucuronide (test Detected ng/mL code = 97586-9) U Methadone (test Not Cutoff: 25 Dolophine code = 83152-6) Detected ng/mL EDDP (test code = Not Cutoff: 25 Metabolite of methadone 48342-6) Detected ng/mL Propoxyphene (test Not Cutoff: 25 Darvon, D arvocet code = 41246-9) Detected ng/mL Norpropoxyphene Not Cutoff: 25 Metabolite o f propoxyphene (test code = Detected ng/mL 87962-3) Tramadol (test Not Cutoff: 25 Tradol, Ultra m, Ultracet code = 85246-0) Detected ng/mL O-desmethyltramado Not Cutoff: 25 Metabolit e of tramadol l (test code = Detected ng/mL 30487-7) Tapentadol (test Not Cutoff: 25 Nucynta code = 97455-4) Detected ng/mL Urwkhlcmme-nizj-pj Not Cutoff: 100 Metabolit e of tapentadol ucuronide (test Detected ng/mL code = 98306-7) Buprenorphine Not Cutoff: 5 Buprenex, Subo xone (test code = Detected ng/mL 99862-9) Norbuprenorphine Not Cutoff: 5 Metabolite of buprenorphine (test code = Detected ng/mL 37759-9) Norbuprenorphine Not Cutoff: 20 Metabolite of buprenorphine Glucuronide (test Detected ng/mL code = 95365-1) Benzodiazepine See Test detected the presence of Interp Urine (test Footnote alprazola m and two of code = 51972-8) itsmetabolit es (alpha-hydroxya lprazolam andalpha-hydrox yalprazolam glucuronide). S uspect use ofalprazolam wi thin the past three days. Hailey t detected the presence of zol pidem xlrecj-7-uxkwky ylicacid (metabolite of zolpidem) only. Suspect use of zolpidemwithin the past four d ays. ----ADDITIONAL INFORMATION---- T his test was de veloped and its performance characteristics determined by [facility] in a manner consistent with CLIArequirement s. This test has not been cleare d or approved bythe U.S. Food and Drug Administration. Alprazolam Urine Present Cutoff: 10 A Xanax (test code = ng/mL 20959-0) Alpha-Hydroxyalpra Present Cutoff: 10 A Metabolit e of Alprazolam zolam Urine (test ng/mL code = 17344-2) Alpha-Hydroxyalpra Present Cutoff: 50 A Metabolit e of Alprazolam zolam Glucuronide ng/mL Urine (test code = 47691-0) Chlordiazepoxide Not Cutoff: 10 Librium Urine (test code = Detected ng/mL 28001-0) Colbazam Urine Not Cutoff: 10 Frisium, Onfi (test code = Detected ng/mL 42936-5) N-Desmethylclobaza Not Cutoff: 200 Metabolit e of Clobazam m Urine (test code Detected ng/mL = 78544-0) Clonazepam Urine Not Cutoff: 10 Klonopin, R ivotril (test code = Detected ng/mL 09124-4) 7-Aminoclonazepam Not Cutoff: 10 Metabolite of Clonazepam Urine (test code = Detected ng/mL 89699-0) Diazepam Urine Not Cutoff: 10 Valium (test code = Detected ng/mL 72957-5) Nordiazepam Urine Not Cutoff: 10 Metabolite of Chlordiazepoxide, (test code = Detected ng/mL Diazepam, or Pr azepam. 97963-6) Flunitrazepam Not Cutoff: 10 Rohypnol Urine (test code = Detected ng/mL 34979-9) 7-Aminoflunitrazep Not Cutoff: 10 Metabolit e of Flunitrazepam am Urine (test Detected ng/mL code = 64101-4) FlUrinerazepam Not Cutoff: 10 Dalmane Urine (test code = Detected ng/mL 82568-6) 2-Hydroxy Ethyl Not Cutoff: 10 Metabolite o f Flurazepam Flurazepam Urine Detected ng/mL (test code = 68347-0) Lorazepam Urine Not Cutoff: 10 Ativan (test code = Detected ng/mL 74612-0) Lorazepam Not Cutoff: 50 Metabolite of L orazepam Glucuronide Urine Detected ng/mL (test code = 61286-0) Midazolam Urine Not Cutoff: 10 Versed (test code = Detected ng/mL 52440-4) Alpha-Hydroxy Not Cutoff: 10 Metabolite of Midazolam Midazolam Urine Detected ng/mL (test code = 03342-8) Oxazepam Urine Not Cutoff: 10 Serax; Also a metabolite of (test code = Detected ng/mL Chlordiazepoxid e, Diazepam, 37513-0) orTemazepam. Oxazepam Not Cutoff: 50 Metabolite of O xazepam Glucuronide Urine Detected ng/mL (test code = 23266-1) Prazepam Urine Not Cutoff: 10 Centrax (test code = Detected ng/mL 26389-4) Temazepam Urine Not Cutoff: 10 Restoril; Al so a metabolite of (test code = Detected ng/mL Diazepam. 29572-8) Temazepam Not Cutoff: 50 Metabolite of T emazepam Glucuronide Urine Detected ng/mL (test code = 63073-9) Triazolam Urine Not Cutoff: 10 Halcion (test code = Detected ng/mL ) Alpha-Hydroxy Not Cutoff: 10 Metabolite of Triazolam Triazolam Urine Detected ng/mL (test code = 21049-7) Zolpidem Urine Not Cutoff: 10 Ambien (test code = Detected ng/mL 31112-1) Zolpidem Present Cutoff: 10 A Metabolite of Z olpidem Jyiql-2-Ibnrwfwmyq ng/mL Acid Urine (test code = 21369-9) Methamphetamine Not Cutoff: 100 Desoxyn (test code = Detected ng/mL 28936-8) Amphetamine (test Not Cutoff: 100 Dyanavel X R, Adzenys ER, code = 15265-2) Detected ng/mL Adderall, Vy vanse; Also ametabolite of methamphetamine 3,4-Methylenedioxy Not Cutoff: 100 methamphetamine Detected ng/mL (MDMA) (test code = 53171-1) 3,4-Methylenedioxy Not Cutoff: 100 -N-Ethylamphetamin Detected ng/mL e (MDEA) (test code = 47024-7) 3,4-Methylenedioxy Not Cutoff: 100 Also a me tabolite of MDMA amphetamine (MDA) Detected ng/mL and/or MDE A (test code = 76527-0) Ephedrine (test Not Cutoff: 100 code = 30898) Detected ng/mL Pseudoephedrine Present Cutoff: 100 A Sudafed (test code = ng/mL 34032) Phentermine (test Not Cutoff: 100 Adipex-P, Lomaira, Qsymia code = 53842-0) Detected ng/mL Phencyclidine Not Cutoff: 20 (PCP) (test code = Detected ng/mL 30029-8) Methylphenidate Not Cutoff: 20 Ritalin, Con certa (test code = Detected ng/mL 80904-1) Ritalinic acid Not Cutoff: 100 Metabolite of methylphenidate (test code = Detected ng/mL 03247) Stimulant See Test detected t he presence of Interpretation Footnote pseudoephedri ne. Suspect useof (test code = pseudoephedrine within the past 72256-6) three days. ----ADDITIONAL INFORMATION---- T his test was de veloped and its performance characteristics determined by [facility] in a manner consistent with CLIArequirement s. This test has not been cleare d or approved bythe U.S. Food and Drug Administration. Test Performed by:[facility] [address] [place], [place] [address]Xfy Dir ronnie: Moe Guzman M.D. Ph.D.; CLIA# [id number] Patients Current NOT ---------ADDITIONAL Medications (test ANSWERED INFORMATIO N A code = 72961-6) ccuracy and completeness of declared medica tions onreports solely dependen t on information submitted bycli ent. Lab Interpretation Abnormal (test code = 43270-8) [facility] Urine Drug [id number] 18:30:48 Test Item Value Reference Range Interpretation Comments POC U Amp (test code Negative Negative Drug Ab use Cutoff = 09517-2) Concentration: Cutoff: 1000 ng /mL POC U Barbit (test Negative Negative Drug Abus e Cutoff code = 49373-4) Concentratio n: 300 ng/mL POC U Benzo (test Positive Negative A Drug Abuse Cutoff code = 92267-9) Concentratio n: Cutoff: 300 ng/ mL POC U Cocaine (test Negative Negative Drug Abu se Cutoff code = 69070-6) Concentratio n: Cutoff: 300 ng/ mL POC U THC (test code Positive Negative A Drug Ab use Cutoff = 6708) Concentration: Cutoff: 50 ng/m L POC U Methd (test Negative Negative Drug Abuse Cutoff code = 6700) Concentration: Cutoff: 300 ng/ mL POC U Mampht (test Negative Negative Drug Abus e Cutoff code = 07803-8) Concentratio n: Cutoff: 1000 ng /mL POC U Opiate (test Negative Negative Drug Abus e Cutoff code = 15442-5) Concentratio n: Cutoff: 2000 ng /mL POC U Oxycod (test Positive Negative A Drug Abus e Cutoff code = 66606-5) Concentratio n: Cutoff: 100 ng/ mL Due to the assa y cross reactivit y between Oxycodo ne and Opiates, an d lower sensitivi ty compared to GC- MS method, the hailey t results may be falsely positiv e or falsely negative. Confirmation wi th concurrent GC-M S results is recommended. POC U PCP (test code Negative Negative Drug Ab use Cutoff = 90853-0) Concentration: Cutoff: 25 ng/m L POC U TCA (test code Negative Negative Drug Ab use Cutoff = 60313-3) Concentration: Cutoff: 1000 ng /mL POC U PPX (test code Negative Negative Drug Ab use Cutoff = 24449-4) Concentration: Cutoff: 300 ng/ mL Method description: [...] testing. Lab Interpretation Abnormal (test code = 27298-1) [facility] Urine Drug [id number] 18:30:48 Test Item Value Reference Range Interpretation Comments POC U Amp (test code Negative Negative Drug Ab use Cutoff = 21929-1) Concentration: Cutoff: 1000 ng /mL POC U Barbit (test Negative Negative Drug Abus e Cutoff code = 40848-7) Concentratio n: 300 ng/mL POC U Benzo (test Positive Negative A Drug Abuse Cutoff code = 07414-6) Concentratio n: Cutoff: 300 ng/ mL POC U Cocaine (test Negative Negative Drug Abu se Cutoff code = 59661-0) Concentratio n: Cutoff: 300 ng/ mL POC U THC (test code Positive Negative A Drug Ab use Cutoff = 6709) Concentration: Cutoff: 50 ng/m L POC U Methd (test Negative Negative Drug Abuse Cutoff code = 6701) Concentration: Cutoff: 300 ng/ mL POC U Mampht (test Negative Negative Drug Abus e Cutoff code = 29188-1) Concentratio n: Cutoff: 1000 ng /mL POC U Opiate (test Negative Negative Drug Abus e Cutoff code = 77542-7) Concentratio n: Cutoff: 2000 ng /mL POC U Oxycod (test Positive Negative A Drug Abus e Cutoff code = 50048-8) Concentratio n: Cutoff: 100 ng/ mL Due to the assa y cross reactivit y between Oxycodo ne and Opiates, an d lower sensitivi ty compared to GC- MS method, the hailey t results may be falsely positiv e or falsely negative. Confirmation wi th concurrent GC-M S results is recommended. POC U PCP (test code Negative Negative Drug Ab use Cutoff = 93482-7) Concentration: Cutoff: 25 ng/m L POC U TCA (test code Negative Negative Drug Ab use Cutoff = 68518-7) Concentration: Cutoff: 1000 ng /mL POC U PPX (test code Negative Negative Drug Ab use Cutoff = 29879-7) Concentration: Cutoff: 300 ng/ mL Method description: [...] testing. Lab Interpretation Abnormal (test code = 36913-7) [facility] Urine Drug [id number] 18:30:48 Test Item Value Reference Range Interpretation Comments POC U Amp (test code Negative Negative Drug Ab use Cutoff = 69468-6) Concentration: Cutoff: 1000 ng /mL POC U Barbit (test Negative Negative Drug Abus e Cutoff code = 32491-5) Concentratio n: 300 ng/mL POC U Benzo (test Positive Negative A Drug Abuse Cutoff code = 65295-4) Concentratio n: Cutoff: 300 ng/ mL POC U Cocaine (test Negative Negative Drug Abu se Cutoff code = 16284-9) Concentratio n: Cutoff: 300 ng/ mL POC U THC (test code Positive Negative A Drug Ab use Cutoff = 6709) Concentration: Cutoff: 50 ng/m L POC U Methd (test Negative Negative Drug Abuse Cutoff code = 6701) Concentration: Cutoff: 300 ng/ mL POC U Mampht (test Negative Negative Drug Abus e Cutoff code = 96659-0) Concentratio n: Cutoff: 1000 ng /mL POC U Opiate (test Negative Negative Drug Abus e Cutoff code = 48060-1) Concentratio n: Cutoff: 2000 ng /mL POC U Oxycod (test Positive Negative A Drug Abus e Cutoff code = 92513-7) Concentratio n: Cutoff: 100 ng/ mL Due to the assa y cross reactivit y between Oxycodo ne and Opiates, an d lower sensitivi ty compared to GC- MS method, the hailey t results may be falsely positiv e or falsely negative. Confirmation wi th concurrent GC-M S results is recommended. POC U PCP (test code Negative Negative Drug Ab use Cutoff = 39752-5) Concentration: Cutoff: 25 ng/m L POC U TCA (test code Negative Negative Drug Ab use Cutoff = 93047-6) Concentration: Cutoff: 1000 ng /mL POC U PPX (test code Negative Negative Drug Ab use Cutoff = 22100-2) Concentration: Cutoff: 300 ng/ mL Method description: [...] testing. Lab Interpretation Abnormal (test code = 54369-5) [facility] Urine Drug [id number] 18:30:48 Test Item Value Reference Range Interpretation Comments POC U Amp (test code Negative Negative Drug Ab use Cutoff = 03443-5) Concentration: Cutoff: 1000 ng /mL POC U Barbit (test Negative Negative Drug Abus e Cutoff code = 13673-8) Concentratio n: 300 ng/mL POC U Benzo (test Positive Negative A Drug Abuse Cutoff code = 01666-3) Concentratio n: Cutoff: 300 ng/ mL POC U Cocaine (test Negative Negative Drug Abu se Cutoff code = 68816-0) Concentratio n: Cutoff: 300 ng/ mL POC U THC (test code Positive Negative A Drug Ab use Cutoff = 6709) Concentration: Cutoff: 50 ng/m L POC U Methd (test Negative Negative Drug Abuse Cutoff code = 670) Concentration: Cutoff: 300 ng/ mL POC U Mampht (test Negative Negative Drug Abus e Cutoff code = 89523-6) Concentratio n: Cutoff: 1000 ng /mL POC U Opiate (test Negative Negative Drug Abus e Cutoff code = 38319-6) Concentratio n: Cutoff: 2000 ng /mL POC U Oxycod (test Positive Negative A Drug Abus e Cutoff code = 41963-5) Concentratio n: Cutoff: 100 ng/ mL Due to the assa y cross reactivit y between Oxycodo ne and Opiates, an d lower sensitivi ty compared to GC- MS method, the hailey t results may be falsely positiv e or falsely negative. Confirmation wi th concurrent GC-M S results is recommended. POC U PCP (test code Negative Negative Drug Ab use Cutoff = 52144-6) Concentration: Cutoff: 25 ng/m L POC U TCA (test code Negative Negative Drug Ab use Cutoff = 45909-0) Concentration: Cutoff: 1000 ng /mL POC U PPX (test code Negative Negative Drug Ab use Cutoff = 87336-7) Concentration: Cutoff: 300 ng/ mL Method description: [...] testing. Lab Interpretation Abnormal (test code = 13964-6) [facility] Urine Drug [id number] 18:30:48 Test Item Value Reference Range Interpretation Comments POC U Amp (test code Negative Negative Drug Ab use Cutoff = 86994-6) Concentration: Cutoff: 1000 ng /mL POC U Barbit (test Negative Negative Drug Abus e Cutoff code = 09358-9) Concentratio n: 300 ng/mL POC U Benzo (test Positive Negative A Drug Abuse Cutoff code = 52992-4) Concentratio n: Cutoff: 300 ng/ mL POC U Cocaine (test Negative Negative Drug Abu se Cutoff code = 62201-4) Concentratio n: Cutoff: 300 ng/ mL POC U THC (test code Positive Negative A Drug Ab use Cutoff = 6709) Concentration: Cutoff: 50 ng/m L POC U Methd (test Negative Negative Drug Abuse Cutoff code = 6701) Concentration: Cutoff: 300 ng/ mL POC U Mampht (test Negative Negative Drug Abus e Cutoff code = 16854-6) Concentratio n: Cutoff: 1000 ng /mL POC U Opiate (test Negative Negative Drug Abus e Cutoff code = 56261-3) Concentratio n: Cutoff: 2000 ng /mL POC U Oxycod (test Positive Negative A Drug Abus e Cutoff code = 25606-9) Concentratio n: Cutoff: 100 ng/ mL Due to the assa y cross reactivit y between Oxycodo ne and Opiates, an d lower sensitivi ty compared to GC- MS method, the hailey t results may be falsely positiv e or falsely negative. Confirmation wi th concurrent GC-M S results is recommended. POC U PCP (test code Negative Negative Drug Ab use Cutoff = 73289-3) Concentration: Cutoff: 25 ng/m L POC U TCA (test code Negative Negative Drug Ab use Cutoff = 01956-8) Concentration: Cutoff: 1000 ng /mL POC U PPX (test code Negative Negative Drug Ab use Cutoff = 73631-2) Concentration: Cutoff: 300 ng/ mL Method description: [...] testing. Lab Interpretation Abnormal (test code = 97573-2) [facility] Urine Drug [id number] 18:30:48 Test Item Value Reference Range Interpretation Comments POC U Amp (test code Negative Negative Drug Ab use Cutoff = 04859-8) Concentration: Cutoff: 1000 ng /mL POC U Barbit (test Negative Negative Drug Abus e Cutoff code = 78610-8) Concentratio n: 300 ng/mL POC U Benzo (test Positive Negative A Drug Abuse Cutoff code = 14408-9) Concentratio n: Cutoff: 300 ng/ mL POC U Cocaine (test Negative Negative Drug Abu se Cutoff code = 08110-1) Concentratio n: Cutoff: 300 ng/ mL POC U THC (test code Positive Negative A Drug Ab use Cutoff = 6709) Concentration: Cutoff: 50 ng/m L POC U Methd (test Negative Negative Drug Abuse Cutoff code = 6701) Concentration: Cutoff: 300 ng/ mL POC U Mampht (test Negative Negative Drug Abus e Cutoff code = 10607-6) Concentratio n: Cutoff: 1000 ng /mL POC U Opiate (test Negative Negative Drug Abus e Cutoff code = 33806-0) Concentratio n: Cutoff: 2000 ng /mL POC U Oxycod (test Positive Negative A Drug Abus e Cutoff code = 99190-3) Concentratio n: Cutoff: 100 ng/ mL Due to the assa y cross reactivit y between Oxycodo ne and Opiates, an d lower sensitivi ty compared to GC- MS method, the hailey t results may be falsely positiv e or falsely negative. Confirmation wi th concurrent GC-M S results is recommended. POC U PCP (test code Negative Negative Drug Ab use Cutoff = 06012-8) Concentration: Cutoff: 25 ng/m L POC U TCA (test code Negative Negative Drug Ab use Cutoff = 78663-1) Concentration: Cutoff: 1000 ng /mL POC U PPX (test code Negative Negative Drug Ab use Cutoff = 49870-9) Concentration: Cutoff: 300 ng/ mL Method description: [...] testing. Lab Interpretation Abnormal (test code = 43951-1) [facility] Urine Drug [id number] 18:30:48 Test Item Value Reference Range Interpretation Comments POC U Amp (test code Negative Negative Drug Ab use Cutoff = 80965-4) Concentration: Cutoff: 1000 ng /mL POC U Barbit (test Negative Negative Drug Abus e Cutoff code = 65055-2) Concentratio n: 300 ng/mL POC U Benzo (test Positive Negative A Drug Abuse Cutoff code = 05672-7) Concentratio n: Cutoff: 300 ng/ mL POC U Cocaine (test Negative Negative Drug Abu se Cutoff code = 90335-1) Concentratio n: Cutoff: 300 ng/ mL POC U THC (test code Positive Negative A Drug Ab use Cutoff = 6708) Concentration: Cutoff: 50 ng/m L POC U Methd (test Negative Negative Drug Abuse Cutoff code = 6700) Concentration: Cutoff: 300 ng/ mL POC U Mampht (test Negative Negative Drug Abus e Cutoff code = 48243-9) Concentratio n: Cutoff: 1000 ng /mL POC U Opiate (test Negative Negative Drug Abus e Cutoff code = 27183-5) Concentratio n: Cutoff: 2000 ng /mL POC U Oxycod (test Positive Negative A Drug Abus e Cutoff code = 83593-0) Concentratio n: Cutoff: 100 ng/ mL Due to the assa y cross reactivit y between Oxycodo ne and Opiates, an d lower sensitivi ty compared to GC- MS method, the hailey t results may be falsely positiv e or falsely negative. Confirmation wi th concurrent GC-M S results is recommended. POC U PCP (test code Negative Negative Drug Ab use Cutoff = 28519-6) Concentration: Cutoff: 25 ng/m L POC U TCA (test code Negative Negative Drug Ab use Cutoff = 56989-1) Concentration: Cutoff: 1000 ng /mL POC U PPX (test code Negative Negative Drug Ab use Cutoff = 25472-4) Concentration: Cutoff: 300 ng/ mL Method description: [...] testing. Lab Interpretation Abnormal (test code = 60311-1) [facility] Urine Drug [id number] 18:30:48 Test Item Value Reference Range Interpretation Comments POC U Amp (test code Negative Negative Drug Ab use Cutoff = 21109-4) Concentration: Cutoff: 1000 ng /mL POC U Barbit (test Negative Negative Drug Abus e Cutoff code = 12324-3) Concentratio n: 300 ng/mL POC U Benzo (test Positive Negative A Drug Abuse Cutoff code = 39865-3) Concentratio n: Cutoff: 300 ng/ mL POC U Cocaine (test Negative Negative Drug Abu se Cutoff code = 41705-9) Concentratio n: Cutoff: 300 ng/ mL POC U THC (test code Positive Negative A Drug Ab use Cutoff = 6709) Concentration: Cutoff: 50 ng/m L POC U Methd (test Negative Negative Drug Abuse Cutoff code = 6701) Concentration: Cutoff: 300 ng/ mL POC U Mampht (test Negative Negative Drug Abus e Cutoff code = 50810-2) Concentratio n: Cutoff: 1000 ng /mL POC U Opiate (test Negative Negative Drug Abus e Cutoff code = 06925-1) Concentratio n: Cutoff: 2000 ng /mL POC U Oxycod (test Positive Negative A Drug Abus e Cutoff code = 34971-6) Concentratio n: Cutoff: 100 ng/ mL Due to the assa y cross reactivit y between Oxycodo ne and Opiates, an d lower sensitivi ty compared to GC- MS method, the hailey t results may be falsely positiv e or falsely negative. Confirmation wi th concurrent GC-M S results is recommended. POC U PCP (test code Negative Negative Drug Ab use Cutoff = 42020-1) Concentration: Cutoff: 25 ng/m L POC U TCA (test code Negative Negative Drug Ab use Cutoff = 24554-9) Concentration: Cutoff: 1000 ng /mL POC U PPX (test code Negative Negative Drug Ab use Cutoff = 70293-4) Concentration: Cutoff: 300 ng/ mL Method description: [...] testing. Lab Interpretation Abnormal (test code = 55059-4) [facility] [place]- Asymptomatic [id number] 03:09:25 Test Item Value Reference Range Interpretation Comments COVID19 (SARS Not Detected Not Detected CoV-2) Result (test code = __This test is a 14888-1) qualitative reverse-transcr iptase polymerase alanna n reaction [...] patients provid ed by the manufacture r ([employer]) c an be reviewed at:https://www. fda.gov /media/549927/d ownload . A fact sheet for Health Care pro viders is provided by the bituminous distributor operator ([employer]) and can be reviewed at: https://www.fda .gov/me juliet/088344/down load Results must be interpreted wit hin [...] were verified by the Microbiology Laboratory at [facility], CLIA Accreditation # : [id number] and CAP Accreditation # : [id number]. COVID19 SARS NITROCELLULOSE MAKER Swab Source (test code = 12230) COVID19 SARS Pre-Radiation Indication (test Therapy code = 95195) [facility] [place]- Asymptomatic [id number] 03:09:25 Test Item Value Reference Range Interpretation Comments COVID19 (SARS Not Detected Not Detected CoV-2) Result (test code = __This test is a 87393-9) qualitative reverse-transcr iptase polymerase alanna n reaction [...] patients provid ed by the manufacture r ([employer]) c an be reviewed at:https://www. My1login.gov /media/694462/d ownload . A fact sheet for Health Care pro viders is provided by the bituminous distributor operator ([employer]) and can be reviewed at: https://www.My1login .gov/me juliet/290773/down load Results must be interpreted wit hin [...] were verified by the Microbiology Laboratory at [facility] [place], CLIA Accreditation # : [id number] and CAP Accreditation # : [id number]. COVID19 SARS NITROCELLULOSE MAKER Swab Source (test code = 32998) COVID19 SARS Pre-Radiation Indication (test Therapy code = 30692) [facility]- As[facility]omatic [id number] 03:09:25 Test Item Value Reference Range Interpretation Comments COVID19 (SARS Not Detected Not Detected CoV-2) Result (test code = __This test is a 24922-9) qualitative reverse-transcr iptase polymerase alanna n reaction [...] patients provid ed by the manufacture r ([employer]) c an be reviewed at:https://www. fda.gov /media/046790/d ownload . A fact sheet for Health Care pro viders is provided by the bituminous distributor operator ([employer]) and can be reviewed at: https://www.fda .gov/me juliet/526535/down load Results must be interpreted wit hin [...] were verified by the Microbiology Laboratory at [facility], CLIA Accreditation # : [id number] and CAP Accreditation # : [id number]. COVID19 SARS NITROCELLULOSE MAKER Swab Source (test code = 23553) COVID19 SARS Pre-Radiation Indication (test Therapy code = 66673) [facility]- Asymptomatic [id number] 03:09:25 Test Item Value Reference Range Interpretation Comments COVID19 (SARS Not Detected Not Detected CoV-2) Result (test code = __This test is a 19223-9) qualitative reverse-transcr iptase polymerase alanna n reaction [...] patients provid ed by the manufacture r ([employer]) c an be reviewed at:https://www. fda.gov /media/402039/d ownload . A fact sheet for Health Care pro viders is provided by the bituminous distributor operator (Leona [employer]oon[employer]) and can be reviewed at: https://www.fda .gov/nc juliet/980737/down load Results must be interpreted wit hin [...] were verified by the Microbiology Laboratory at [facility], CLIA Accreditation # : [id number] and CAP Accreditation # : [id number]. COVID19 SARS NITROCELLULOSE MAKER Swab Source (test code = 34868) COVID19 SARS Pre-Radiation Indication (test Therapy code = 71223) [facility] [place]- Asymptomatic [id number] 03:09:25 Test Item Value Reference Range Interpretation Comments COVID19 (SARS Not Detected Not Detected CoV-2) Result (test code = __This test is a 47234-7) qualitative reverse-transcr iptase polymerase alanna n reaction [...] patients provid ed by the manufacture r ([employer]) c an be reviewed at:https://www. fda.gov /media/845862/d ownload . A fact sheet for Health Care pro viders is provided by the bituminous distributor operator ([employer]) and can be reviewed at: https://www.My1login .gov/me juliet/169632/down load Results must be interpreted wit hin [...] were verified by the Microbiology Laboratory at [facility], CLIA Accreditation # : [id number] and CAP Accreditation # : [id number]. COVID19 SARS NITROCELLULOSE MAKER Swab Source (test code = 04082) COVID19 SARS Pre-Radiation Indication (test Therapy code = 42660) [facility]- Asymptomatic [id number] 03:09:25 Test Item Value Reference Range Interpretation Comments COVID19 (SARS Not Detected Not Detected CoV-2) Result (test code = __This test is a 49011-2) qualitative reverse-transcr iptase polymerase alanna n reaction [...] patients provid ed by the manufacture r ([employer]) c an be reviewed at:https://www. fda.gov /media/983648/d ownload . A fact sheet for Health Care pro viders is provided by the bituminous distributor operator ([employer]) and can be reviewed at: https://www.fda .gov/me juliet/101073/down load Results must be interpreted wit hin [...] were verified by the Microbiology Laboratory at [facility], CLIA Accreditation # : [id number] and CAP Accreditation # : [id number]. COVID19 SARS NITROCELLULOSE MAKER Swab Source (test code = 96880) COVID19 SARS Pre-Radiation Indication (test Therapy code = 52388) [facility] [place]- Asymptomatic [id number] 03:09:25 Test Item Value Reference Range Interpretation Comments COVID19 (SARS Not Detected Not Detected CoV-2) Result (test code = __This test is a 35319-8) qualitative reverse-transcr iptase polymerase alanna n reaction (RT-PC R) developed for t he [employer] RUBY 680 0 system and inte nded [...] patients provid ed by the manufacture r ([employer]) c an be reviewed at:https://www. fda.gov /media/501221/d ownload . A fact sheet for Health Care pro viders is provided by the bituminous distributor operator ([employer]) and can be reviewed at: https://www.fda .gov/me juliet/513110/down load Results must be interpreted wit hin [...] were verified by the Microbiology Laboratory at [facility], CLIA Accreditation # : [id number] and CAP Accreditation # : [id number]. COVID19 SARS NITROCELLULOSE MAKER Swab Source (test code = 66812) COVID19 SARS Pre-Radiation Indication (test Therapy code = 88216) [facility]- Asymptomatic [id number] 03:09:25 Test Item Value Reference Range Interpretation Comments COVID19 (SARS Not Detected Not Detected CoV-2) Result (test code = __This test is a 31473-2) qualitative reverse-transcr iptase polymerase alanna n reaction [...] patients provid ed by the manufacture r ([employer]) c an be reviewed at:https://www. fda.gov /media/123167/d ownload . A fact sheet for Health Care pro viders is provided by the bituminous distributor operator ([employer]) and can be reviewed at: https://www.fda .gov/me juliet/108072/down load Results must be interpreted wit hin [...] were verified by the Microbiology Laboratory at [facility], CLIA Accreditation # : [id number] and CAP Accreditation # : [id number]. COVID19 SARS NITROCELLULOSE MAKER Swab Source (test code = 57848) COVID19 SARS Pre-Radiation Indication (test Therapy code = 50088) [facility] [id number] 00:43:46 Test Item Value Reference Range Interpretation Comments pH Raghavendra (test code = 7.40 7.32-7.43 Results are 2746-6) corrected for a body temp of 37C pCO2 Raghavendra (test code = 47.6 See_Comment [Auto mated message] 2021-01) The system i[employer] generated this result transmit kaylie reference range : 41.0 - 51.0 mmH g. The reference r pinky was not used to interpret this result as normal/abnormal . pO2 Raghavendra (test code = 52 mmHg 2705-2) HCO3 Raghavendra (test code = 29 mmol/L 21-28 H 68674-5) Base Excess Raghavendra (test 3 mmol/L -2-3 code = 1927-3) O2 Sat Raghavendra (test code = 87 % 2711-0) Lab Interpretation (test Abnormal code = 36273-6) [facility] [id number] 00:43:46 Test Item Value Reference Range Interpretation Comments pH Raghavendra (test code = 7.40 7.32-7.43 Results are 2746-6) corrected for a body temp of 37C pCO2 Raghavendra (test code = 47.6 See_Comment [Auto mated message] 2021-01) The system [employer] generated this result transmit kaylie reference range : 41.0 - 51.0 mmH g. The reference r pinky was not used to interpret this result as normal/abnormal . pO2 Raghavendra (test code = 52 mmHg 2705-2) HCO3 Raghavendra (test code = 29 mmol/L 21-28 H 68337-3) Base Excess Raghavendra (test 3 mmol/L -2-3 code = 1927-3) O2 Sat Raghavendra (test code = 87 % 2711-0) Lab Interpretation (test Abnormal code = 79475-9) [facility] [id number] 00:43:46 Test Item Value Reference Range Interpretation Comments pH Raghavendra (test code = 7.40 7.32-7.43 Results are 2746-6) corrected for a body temp of 37C pCO2 Raghavendra (test code = 47.6 See_Comment [Auto mated message] 2021-01) The system [employer] generated this result transmit kaylie reference range : 41.0 - 51.0 mmH g. The reference r pinky was not used to interpret this result as normal/abnormal . pO2 Raghavendra (test code = 52 mmHg 2705-2) HCO3 Raghavendra (test code = 29 mmol/L 21-28 H 35779-9) Base Excess Raghavendra (test 3 mmol/L -2-3 code = 1927-3) O2 Sat Raghavendra (test code = 87 % 2711-0) Lab Interpretation (test Abnormal code = 27804-0) [facility] [id number] 00:43:46 Test Item Value Reference Range Interpretation Comments pH Raghavendra (test code = 7.40 7.32-7.43 Results are 2746-6) corrected for a body temp of 37C pCO2 Raghavendra (test code = 47.6 See_Comment [Auto mated message] 2021-01) The system [employer] generated this result transmit kaylie reference range : 41.0 - 51.0 mmH g. The reference r pinky was not used to interpret this result as normal/abnormal . pO2 Raghavendra (test code = 52 mmHg 2705-2) HCO3 Raghavendra (test code = 29 mmol/L 21-28 H 76562-3) Base Excess Raghavendra (test 3 mmol/L -2-3 code = 1927-3) O2 Sat Raghavendra (test code = 87 % 2711-0) Lab Interpretation (test Abnormal code = 69332-5) [facility] [id number] 00:43:46 Test Item Value Reference Range Interpretation Comments pH Raghavendra (test code = 7.40 7.32-7.43 Results are 2746-6) corrected for a body temp of 37C pCO2 Raghavendra (test code = 47.6 See_Comment [Auto mated message] 2021-01) The system [employer] generated this result transmit kaylie reference range : 41.0 - 51.0 mmH g. The reference r pinky was not used to interpret this result as normal/abnormal . pO2 Raghavendra (test code = 52 mmHg 2705-2) HCO3 Raghavendra (test code = 29 mmol/L 21-28 H 28050-1) Base Excess Raghavendra (test 3 mmol/L -2-3 code = 1927-3) O2 Sat Raghavendra (test code = 87 % 2711-0) Lab Interpretation (test Abnormal code = 40987-5) [facility] [id number] 00:43:46 Test Item Value Reference Range Interpretation Comments pH Raghavendra (test code = 7.40 7.32-7.43 Results are 2746-6) corrected for a body temp of 37C pCO2 Raghavendra (test code = 47.6 See_Comment [Auto mated message] 2021-01) The system [employer] generated this result transmit kaylie reference range : 41.0 - 51.0 mmH g. The reference r pinky was not used to interpret this result as normal/abnormal . pO2 Raghavendra (test code = 52 mmHg 2705-2) HCO3 Raghavendra (test code = 29 mmol/L -28 H 86237-2) Base Excess Raghavendra (test 3 mmol/L -2-3 code = 1927-3) O2 Sat Raghavendra (test code = 87 % 2711-0) Lab Interpretation (test Abnormal code = 47658-0) [facility] [id number] 00:43:46 Test Item Value Reference Range Interpretation Comments pH Raghavendra (test code = 7.40 7.32-7.43 Results are 2746-6) corrected for a body temp of 37C pCO2 Raghavendra (test code = 47.6 See_Comment [Auto mated message] 2021-01) The system [employer] generated this result transmit kaylie reference range : 41.0 - 51.0 mmH g. The reference r pinky was not used to interpret this result as normal/abnormal . pO2 Raghavendra (test code = 52 mmHg 2705-2) HCO3 Raghavendra (test code = 29 mmol/L 21-28 H 07313-4) Base Excess Raghavendra (test 3 mmol/L -2-3 code = 1927-3) O2 Sat Raghavendra (test code = 87 % 2711-0) Lab Interpretation (test Abnormal code = 15810-2) [facility] Kytaec2347-41-04 00:43:46 Test Item Value Reference Range Interpretation Comments pH Raghavendra (test code = 7.40 7.32-7.43 Results are 2746-6) corrected for a body temp of 37C pCO2 Raghavendra (test code = 47.6 See_Comment [Auto mated message] 2021-01) The system [employer] generated this result transmit kaylie reference range : 41.0 - 51.0 mmH g. The reference r pinky was not used to interpret this result as normal/abnormal . pO2 Raghavendra (test code = 52 mmHg 2705-2) HCO3 Raghavendra (test code = 29 mmol/L 21-28 H 97735-7) Base Excess Raghavendra (test 3 mmol/L -2-3 code = 1927-3) O2 Sat Raghavendra (test code = 87 % 2711-0) Lab Interpretation (test Abnormal code = 42464-3) [facility] [id number] 00:17:35 Test Item Value Reference Range Interpretation Comments UA Ketones (test code = 5797-6) NEG NEG mg/dL [facility] Shztksxznwr2162-21-57 00:17:35 Test Item Value Reference Range Interpretation Comments UA Ketones (test code = 5797-6) NEG NEG mg/dL [facility] Rxpvwupcxsh0833-21-55 00:17:35 Test Item Value Reference Range Interpretation Comments UA Ketones (test code = 5797-6) NEG NEG mg/dL [facility] Lvavdmcmuwz8162-06-94 00:17:35 Test Item Value Reference Range Interpretation Comments UA Ketones (test code = 5797-6) NEG NEG mg/dL [facility] Eqzoeuxsxxm4627-45-42 00:17:35 Test Item Value Reference Range Interpretation Comments UA Ketones (test code = 5797-6) NEG NEG mg/dL [facility] [place] B[facility] Iuihecbwdos1121-46-45 00:17:35 Test Item Value Reference Range Interpretation Comments UA Ketones (test code = 5797-6) NEG NEG mg/dL [facility] [place] Bodies Mqlkofeuyfg3933-33-39 00:17:35 Test Item Value Reference Range Interpretation Comments UA Ketones (test code = 5797-6) NEG NEG mg/dL [facility] Cegrtqaqygt4141-91-66 00:17:35 Test Item Value Reference Range Interpretation Comments UA Ketones (test code = 5797-6) NEG NEG mg/dL [facility] Vknodsoo6095-50-86 21:37:06 Test Item Value Reference Range Interpretation Comments POC Critical Comment See Note Test pe rformer notified (test code = 8955) Ordering Licensed Provider and /o r designee of POC Glucose Screen critical Results.. [facility] Srfcejer2674-26-34 21:37:06 Test Item Value Reference Range Interpretation Comments POC Critical Comment See Note Test pe rformer notified (test code = 8955) Ordering Licensed Provider and /o r designee of POC Glucose Screen critical Results.. [facility] Zaedrkuh1835-63-96 21:37:06 Test Item Value Reference Range Interpretation Comments POC Critical Comment See Note Test pe rformer notified (test code = 8955) Ordering Licensed Provider and /o r designee of POC Glucose Screen critical Results.. [facility] Xwnovoed0531-96-61 21:37:06 Test Item Value Reference Range Interpretation Comments POC Critical Comment See Note Test pe rformer notified (test code = 8955) Ordering Licensed Provider and /o r designee of POC Glucose Screen critical Results.. [facility] Uztgtugi0054-87-72 21:37:06 Test Item Value Reference Range Interpretation Comments POC Critical Comment See Note Test pe rformer notified (test code = 8955) Ordering Licensed Provider and /o r designee of POC Glucose Screen critical Results.. [facility] Gkebqvzq0968-33-45 21:37:06 Test Item Value Reference Range Interpretation Comments POC Critical Comment See Note Test pe rformer notified (test code = 8955) Ordering Licensed Provider and /o r designee of POC Glucose Screen critical Results.. [facility] Lcmbfmjk7139-49-76 21:37:06 Test Item Value Reference Range Interpretation Comments POC Critical Comment See Note Test pe rformer notified (test code = 8955) Ordering Licensed Provider and /o r designee of POC Glucose Screen critical Results.. [facility] Nnmonvzi1250-15-19 21:37:06 Test Item Value Reference Range Interpretation Comments POC Critical Comment See Note Test pe rformer notified (test code = 8955) Ordering Licensed Provider and /o r designee of POC Glucose Screen critical Results.. [facility] VBG+[id number] 03:40:13 Test Item Value Reference Range Interpretation Comments POC VB pH (test code 7.46 7.31-7.41 H = 2746-6) POC VB pCO2 (test 42 See_Comment [Automate d message] code = 2020-) The system [employer] generated this result transmitted ref erence range: 41 - 51 mmHg. The reference r pinky was not used to interpret this result as normal/abnor mal. POC VB pO2 (test 61 mmHg code = 2705-2) POC VB TCO2 (test 31 See_Comment H [Automate d message] code = 2026-) The system [employer] generated this result transmitted ref erence range: 24 - 29 mEq/L. The reference r pinky was not used to interpret this result as normal/abnor mal. POC VB Bicarb (test 30 mmol/L 23-28 H code = 60487-9) POC VB Base Ex (test 5 mmol/L [...] ally sensitive biose nsors on a silicon ch ip that are config ured to perform spec ific tests. The microfabricated sensors measure analyte concent ration by an electroch emical assay. POC Sample Type Venous (test code = 6690) POC Clean Dev (test Yes code = 6672) Performing Lab (test MDA Main Main Ca mpus code = 42138) [facility] nical Lab, [address], [place] [address]; Postal Superintendent: Margarita Jacob MD; Waived Point of Care Testing - Gabrielle aaron MD Lab Interpretation Abnormal (test code = 34873-3) [facility] [place] V[place]+[id number] 03:40:13 Test Item Value Reference Range Interpretation Comments POC VB pH (test code 7.46 7.31-7.41 H = 2746-6) POC VB pCO2 (test 42 See_Comment [Automate d message] code = 2020-) The system [employer] generated this result transmitted ref erence range: 41 - 51 mmHg. The reference r pinky was not used to interpret this result as normal/abnor mal. POC VB pO2 (test 61 mmHg code = 2705-2) POC VB TCO2 (test 31 See_Comment H [Automate d message] code = 2026-) The system [employer] generated this result transmitted ref erence range: 24 - 29 mEq/L. The reference r pinky was not used to interpret this result as normal/abnor mal. POC VB Bicarb (test 30 mmol/L 23-28 H code = 19436-9) POC VB Base Ex (test 5 mmol/L [...] ally sensitive biose nsors on a silicon Nu-B-2B ip that are config ured to perform spec ific tests. The microfabricated sensors measure analyte concent ration by an electroch emical assay. POC Sample Type Venous (test code = 6690) POC Clean Dev (test Yes code = 6672) Performing Lab (test MDA Main Main Ca mpus code = 91304) [facility], [address], [place] [address]; Postal Superintendent: Margarita Jacob MD; Waived Point of Care Testing - Gabrielle aaron MD Lab Interpretation Abnormal (test code = 24048-2) [facility] [place] VBG+[id number] 03:40:13 Test Item Value Reference Range Interpretation Comments POC VB pH (test code 7.46 7.31-7.41 H = 2746-6) POC VB pCO2 (test 42 See_Comment [Automate d message] code = 2020-) The system [employer] generated this result transmitted ref erence range: 41 - 51 mmHg. The reference r pinky was not used to interpret this result as normal/abnor mal. POC VB pO2 (test 61 mmHg code = 2705-2) POC VB TCO2 (test 31 See_Comment H [Automate d message] code = 2026-) The system [employer] generated this result transmitted ref erence range: 24 - 29 mEq/L. The reference r pinky was not used to interpret this result as normal/abnor mal. POC VB Bicarb (test 30 mmol/L 23-28 H code = 30624-4) POC VB Base Ex (test 5 mmol/L [...] chemic ally sensitive biose nsors on a [employer] ip that are config ured to perform spec ific tests. The microfabricated sensors measure analyte concent ration by an electroch emical assay. POC Sample Type Venous (test code = 6690) POC Clean Dev (test Yes code = 6672) Performing Lab (test MDA Main Main Ca mpus code = 43329) [facility], [address], [place] [address]; Postal Superintendent: Margarita Jacob MD; Waived Point of Care Testing - Gabrielle aaron MD Lab Interpretation Abnormal (test code = 83572-5) [facility] [place] VBG+[id number] 03:40:13 Test Item Value Reference Range Interpretation Comments POC VB pH (test code 7.46 7.31-7.41 H = 2746-6) POC VB pCO2 (test 42 See_Comment [Automate d message] code = 2020-) The system [employer] generated this result transmitted ref erence range: 41 - 51 mmHg. The reference r pinky was not used to interpret this result as normal/abnor mal. POC VB pO2 (test 61 mmHg code = 2705-2) POC VB TCO2 (test 31 See_Comment H [Automate d message] code = 2026-) The system [employer] generated this result transmitted ref erence range: 24 - 29 mEq/L. The reference r pinky was not used to interpret this result as normal/abnor mal. POC VB Bicarb (test 30 mmol/L 23-28 H code = 72626-6) POC VB Base Ex (test 5 mmol/L [...] chemic ally sensitive biose nsors on a Play[employer] ip that are config ured to perform spec ific tests. The microfabricated sensors measure analyte concent ration by an electroch emical assay. POC Sample Type Venous (test code = 6690) POC Clean Dev (test Yes code = 6672) Performing Lab (test MDA Main Main Ca mpus code = 81750) [facility], [address], [place] [address]; Postal Superintendent: Margarita Jacob MD; Waived Point of Care Testing - Gabrielle aaron MD Lab Interpretation Abnormal (test code = 70120-5) [facility] [place] VBG+[id number] 03:40:13 Test Item Value Reference Range Interpretation Comments POC VB pH (test code 7.46 7.31-7.41 H = 2746-6) POC VB pCO2 (test 42 See_Comment [Automate d message] code = 2020-) The system [employer] generated this result transmitted ref erence range: 41 - 51 mmHg. The reference r pinky was not used to interpret this result as normal/abnor mal. POC VB pO2 (test 61 mmHg code = 2705-2) POC VB TCO2 (test 31 See_Comment H [Automate d message] code = 2026-) The system [employer] generated this result transmitted ref erence range: 24 - 29 mEq/L. The reference r pinky was not used to interpret this result as normal/abnor mal. POC VB Bicarb (test 30 mmol/L 23-28 H code = 12483-2) POC VB Base Ex (test 5 mmol/L [...] chemic ally sensitive biose nsors on a [employer] ip that are config ured to perform spec ific tests. The microfabricated sensors measure analyte concent ration by an electroch emical assay. POC Sample Type Venous (test code = 6690) POC Clean Dev (test Yes code = 6672) Performing Lab (test MDA Main Main Ca mpus code = 18808) [facility], [address], [place] [address]; Postal Superintendent: Margarita Jacob MD; Waived Point of Care Testing - Gabrielle aaron MD Lab Interpretation Abnormal (test code = 20968-6) [facility] [place] VBG+[id number] 03:40:13 Test Item Value Reference Range Interpretation Comments POC VB pH (test code 7.46 7.31-7.41 H = 2746-6) POC VB pCO2 (test 42 See_Comment [Automate d message] code = 2020-) The system [employer] generated this result transmitted ref erence range: 41 - 51 mmHg. The reference r pinky was not used to interpret this result as normal/abnor mal. POC VB pO2 (test 61 mmHg code = 2705-2) POC VB TCO2 (test 31 See_Comment H [Automate d message] code = 2026-) The system [employer] generated this result transmitted ref erence range: 24 - 29 mEq/L. The reference r pinky was not used to interpret this result as normal/abnor mal. POC VB Bicarb (test 30 mmol/L 23-28 H code = 30837-0) POC VB Base Ex (test 5 mmol/L [...] ally sensitive biose nsors on a silicon Nu-B-2B ip that are config ured to perform spec ific tests. The microfabricated sensors measure analyte concent ration by an electroch emical assay. POC Sample Type Venous (test code = 6690) POC Clean Dev (test Yes code = 6672) Performing Lab (test MDA Main Main Ca mpus code = 46647) [facility], [address], [place] [address]; Postal Superintendent: Margarita Jacob MD; Waived Point of Care Testing - Gabrielle aaron MD Lab Interpretation Abnormal (test code = 42283-3) [facility] [place] VBG+[id number] 03:40:13 Test Item Value Reference Range Interpretation Comments POC VB pH (test code 7.46 7.31-7.41 H = 2746-6) POC VB pCO2 (test 42 See_Comment [Automate d message] code = 2021-01) The system [employer] generated this result transmitted ref erence range: 41 - 51 mmHg. The reference r pinky was not used to interpret this result as normal/abnor mal. POC VB pO2 (test 61 mmHg code = 2705-2) POC VB TCO2 (test 31 See_Comment H [Automate d message] code = 2026-11) The system [employer] generated this result transmitted ref erence range: 24 - 29 mEq/L. The reference r pinky was not used to interpret this result as normal/abnor mal. POC VB Bicarb (test 30 mmol/L 23-28 H code = 93734-2) POC VB Base Ex (test 5 mmol/L [...] chemic ally sensitive biose nsors on a [employer] ip that are config ured to perform spec ific tests. The microfabricated sensors measure analyte concent ration by an electroch emical assay. POC Sample Type Venous (test code = 6690) POC Clean Dev (test Yes code = 6672) Performing Lab (test MDA Main Main Ca mpus code = 26991) [facility], [address], [place] [address]; Postal Superintendent: Margarita Jacob MD; Waived Point of Care Testing - Gabrielle aaron MD Lab Interpretation Abnormal (test code = 49963-1) [facility] [place] VBG+[id number] 03:40:13 Test Item Value Reference Range Interpretation Comments POC VB pH (test code 7.46 7.31-7.41 H = 2746-6) POC VB pCO2 (test 42 See_Comment [Automate d message] code = 2021-01) The system [employer] generated this result transmitted ref erence range: 41 - 51 mmHg. The reference r pinky was not used to interpret this result as normal/abnor mal. POC VB pO2 (test 61 mmHg code = 2705-2) POC VB TCO2 (test 31 See_Comment H [Automate d message] code = 2026-11) The system [employer] generated this result transmitted ref erence range: 24 - 29 mEq/L. The reference r pinky was not used to interpret this result as normal/abnor mal. POC VB Bicarb (test 30 mmol/L 23-28 H code = 15636-2) POC VB Base Ex (test 5 mmol/L [...] which contains microfabricated sensors, a calibration kaye [employer], fluidics system , and a waste chamber . Each test cartridge contains chemic ally sensitive biose nsors on a [employer] ip that are config ured to perform spec ific tests. The microfabricated sensors measure analyte concent ration by an electroch emical assay. POC Sample Type Venous (test code = 6690) POC Clean Dev (test Yes code = 6672) Performing Lab (test MDA Main Main Ca mpus code = 34177) [facility], [address], [place] [address]; Postal Superintendent: Margarita Jacob MD; Waived Point of Care Testing - Gabrielle aaron MD Lab Interpretation Abnormal (test code = 60357-4) [place] [address]-02-09 00:46:13 Test Item Value Reference Range Interpretation Comments Ammonia (test code = 18 See_Comment [Autom ated message] The [address] [place] [address]) system which ge nerated this result tra nsmitted reference range : 11 - 51 mcmol/L. The re ference range was not u sed to interpret this result as normal/abnormal . [place] 94059-02-09 00:46:13 Test Item Value Reference Range Interpretation Comments Ammonia (test code = 18 See_Comment [Autom ated message] The [address] [place] [address]) system which ge nerated this result tra nsmitted reference range : 11 - 51 mcmol/L. The re ference range was not u sed to interpret this result as normal/abnormal . [place] 94059-02-09 00:46:13 Test Item Value Reference Range Interpretation Comments Ammonia (test code = 18 See_Comment [Autom ated message] The 91671-7) system which ge nerated this result tra nsmitted reference range : 11 - 51 mcmol/L. The re ference range was not u sed to interpret this result as normal/abnormal . [place] [address]4059-02-09 00:46:13 Test Item Value Reference Range Interpretation Comments Ammonia (test code = 18 See_Comment [Autom ated message] The 94458-1) system which ge nerated this result tra nsmitted reference range : 11 - 51 mcmol/L. The re ference range was not u sed to interpret this result as normal/abnormal . [place] [address]4059-02-09 00:46:13 Test Item Value Reference Range Interpretation Comments Ammonia (test code = 18 See_Comment [Autom ated message] The 02923-9) system which ge nerated this result tra nsmitted reference range : 11 - 51 mcmol/L. The re ference range was not u sed to interpret this result as normal/abnormal . [place] [address]4059-02-09 00:46:13 Test Item Value Reference Range Interpretation Comments Ammonia (test code = 18 See_Comment [Autom ated message] The 43085-1) system which ge nerated this result tra nsmitted reference range : 11 - 51 mcmol/L. The re ference range was not u sed to interpret this result as normal/abnormal . [place] [address]4059-02-09 00:46:13 Test Item Value Reference Range Interpretation Comments Ammonia (test code = 18 See_Comment [Autom ated message] The 14062-6) system which ge nerated this result tra nsmitted reference range : 11 - 51 mcmol/L. The re ference range was not u sed to interpret this result as normal/abnormal . [place] [address]4059-02-09 00:46:13 Test Item Value Reference Range Interpretation Comments Ammonia (test code = 18 See_Comment [Autom ated message] The 77672-1) system which ge nerated this result tra nsmitted reference range : 11 - 51 mcmol/L. The re ference range was not u sed to interpret this result as normal/abnormal . [facility] -[id number] 16:59:59 Test Item Value Reference Range Interpretation Comments Molecular Diagnostics (Received) Yes (test code = 8400) Jael Ap Link (test code = 90411) [id number] Block Number (Qualitative) (test BLANK code = 8193) Outside Accession (Qualitative) [id number] (test code = 8405) [facility] Spec[facility] -[id number] 16:59:59 Test Item Value Reference Range Interpretation Comments Molecular Diagnostics (Received) Yes (test code = 8400) Jael Ap Link (test code = 30367) [id number] Block Number (Qualitative) (test BLANK code = 8193) Outside Accession (Qualitative) [id number] (test code = 8405) [facility] -[id number] 16:59:59 Test Item Value Reference Range Interpretation Comments Molecular Diagnostics (Received) Yes (test code = 8400) Beaker Ap Link (test code = 16386) [id number] Block Number (Qualitative) (test BLANK code = 8193) Outside Accession (Qualitative) [id number] (test code = 8405) [facility] Spec[facility] -[id number] 16:59:59 Test Item Value Reference Range Interpretation Comments Molecular Diagnostics (Received) Yes (test code = 8400) Beaker Ap Link (test code = 55242) [id number] Block Number (Qualitative) (test BLANK code = 8193) Outside Accession (Qualitative) [id number] (test code = 8405) [facility] Diagnostics Specimen Collection -[id number] 16:59:59 Test Item Value Reference Range Interpretation Comments Molecular Diagnostics (Received) Yes (test code = 8400) Beaker Ap Link (test code = 77389) [id number] Block Number (Qualitative) (test BLANK code = 8193) Outside Accession (Qualitative) [id number] (test code = 8405) [facility] Diagnostics Specimen Collection -[id number] 16:59:59 Test Item Value Reference Range Interpretation Comments Molecular Diagnostics (Received) Yes (test code = 8400) Beaker Ap Link (test code = 45476) [id number] Block Number (Qualitative) (test BLANK code = 8193) Outside Accession (Qualitative) [id number] (test code = 8405) [facility] -[id number] 16:59:59 Test Item Value Reference Range Interpretation Comments Molecular Diagnostics (Received) Yes (test code = 8400) Beaker Ap Link (test code = 71360) [id number] Block Number (Qualitative) (test BLANK code = 8193) Outside Accession (Qualitative) 22:[id number] (test code = 8405) [facility] Spec[facility] -[id number] 16:59:59 Test Item Value Reference Range Interpretation Comments Molecular Diagnostics (Received) Yes (test code = 8400) Beaker Ap Link (test code = 39300) [id number] Block Number (Qualitative) (test BLANK code = 8193) Outside Accession (Qualitative) 22:[id number] (test code = 8405) [facility] PTEN Mutation Material Request 2022-12-04 14:02:11 Test Item Value Reference Range Interpretation Comments Archived Material The test is to be (test code = 27443) performed on tissue from case [id number]. The case report, slides, and blocks for the cited accession were retrieved from archives. The pathologist examined the candidate H&E slide and selected the block appropriate to the specifications of the ordered molecular analysis. Unstained slides and H&E slide were prepared and forwarded to [facility] where the subject molecular test will be performed. Results will be reported separately. Pathologist [facility] PTEN Mutation Material Request 2022-12-04 14:02:11 Test Item Value Reference Range Interpretation Comments Archived Material The test is to be (test code = 94069) performed on tissue from case [id number]. The case report, slides, and blocks for the cited accession were retrieved from archives. The pathologist examined the candidate H&E slide and selected the block appropriate to the specifications of the ordered molecular analysis. Unstained slides and H&E slide were prepared and forwarded to [facility] where the subject molecular test will be performed. Results will be reported separately. Pathologist [facility] PTEN Mutation Material Request 2022-12-04 14:02:11 Test Item Value Reference Range Interpretation Comments Archived Material The test is to be (test code = 63209) performed on tissue from case [id number]. The case report, slides, and blocks for the cited accession were retrieved from archives. The pathologist examined the candidate H&E slide and selected the block appropriate to the specifications of the ordered molecular analysis. Unstained slides and H&E slide were prepared and forwarded to [facility] where the subject molecular test will be performed. Results will be reported separately. [facility] 2022-12-04 14:02:11 Test Item Value Reference Range Interpretation Comments Archived Material The test is to be (test code = 32881) performed on tissue from case [id number]. The case report, slides, and blocks for the cited accession were retrieved from archives. The pathologist examined the candidate H&E slide and selected the block appropriate to the specifications of the ordered molecular analysis. Unstained slides and H&E slide were prepared and forwarded to [facility] where the subject molecular test will be performed. Results will be reported separately. [facility] Request 2022-12-04 14:02:11 Test Item Value Reference Range Interpretation Comments Archived Material The test is to be (test code = 69468) performed on tissue from case [id number]. The case report, slides, and blocks for the cited accession were retrieved from archives. The pathologist examined the candidate H&E slide and selected the block appropriate to the specifications of the ordered molecular analysis. Unstained slides and H&E slide were prepared and forwarded to [facility] where the subject molecular test will be performed. Results will be reported separately. [facility]ologist [facility] Request 2022-12-04 14:02:11 Test Item Value Reference Range Interpretation Comments Archived Material The test is to be (test code = 85428) performed on tissue from case [id number]. The case report, slides, and blocks for the cited accession were retrieved from archives. The pathologist examined the candidate H&E slide and selected the block appropriate to the specifications of the ordered molecular analysis. Unstained slides and H&E slide were prepared and forwarded to [facility] where the subject molecular test will be performed. Results will be reported separately. [facility]ologist [facility] Request 2022-12-04 14:02:11 Test Item Value Reference Range Interpretation Comments Archived Material The test is to be (test code = 23682) performed on tissue from case [id number]. The case report, slides, and blocks for the cited accession were retrieved from archives. The pathologist examined the candidate H&E slide and selected the block appropriate to the specifications of the ordered molecular analysis. Unstained slides and H&E slide were prepared and forwarded to [facility] where the subject molecular test will be performed. Results will be reported separately. [facility]ologist [facility] Request 2022-12-04 14:02:11 Test Item Value Reference Range Interpretation Comments Archived Material The test is to be (test code = 60062) performed on tissue from case [id number]. The case report, slides, and blocks for the cited accession were retrieved from archives. The pathologist examined the candidate H&E slide and selected the block appropriate to the specifications of the ordered molecular analysis. Unstained slides and H&E slide were prepared and forwarded to [facility] where the subject molecular test will be performed. Results will be reported separately. Pathologist [facility] Analysis Material [id number] 14:02:06 Test Item Value Reference Range Interpretation Comments Archived Material The test is to be (test code = 34549) performed on tissue from case [id number]. The case report, slides, and blocks for the cited accession were retrieved from archives. The pathologist examined the candidate H&E slide and selected the block appropriate to the specifications of the ordered molecular analysis. Unstained slides and H&E slide were prepared and forwarded to [facility] where the subject molecular test will be performed. Results will be reported separately. Pathologist [facility] Material [id number] 14:02:06 Test Item Value Reference Range Interpretation Comments Archived Material The test is to be (test code = 09066) performed on tissue from case [id number]. The case report, slides, and blocks for the cited accession were retrieved from archives. The pathologist examined the candidate H&E slide and selected the block appropriate to the specifications of the ordered molecular analysis. Unstained slides and H&E slide were prepared and forwarded to [facility] where the subject molecular test will be performed. Results will be reported separately. [facility]ologist [facility] Analysis Material [id number] 14:02:06 Test Item Value Reference Range Interpretation Comments Archived Material The test is to be (test code = 57288) performed on tissue from case [id number]. The case report, slides, and blocks for the cited accession were retrieved from archives. The pathologist examined the candidate H&E slide and selected the block appropriate to the specifications of the ordered molecular analysis. Unstained slides and H&E slide were prepared and forwarded to [facility] where the subject molecular test will be performed. Results will be reported separately. Pathologist [facility] Analysis Material [id number] 14:02:06 Test Item Value Reference Range Interpretation Comments Archived Material The test is to be (test code = 41152) performed on tissue from case [id number]. The case report, slides, and blocks for the cited accession were retrieved from archives. The pathologist examined the candidate H&E slide and selected the block appropriate to the specifications of the ordered molecular analysis. Unstained slides and H&E slide were prepared and forwarded to [facility] where the subject molecular test will be performed. Results will be reported separately. [facility]ologist [facility] Analysis Material [id number] 14:02:06 Test Item Value Reference Range Interpretation Comments Archived Material The test is to be (test code = 02106) performed on tissue from case [id number]. The case report, slides, and blocks for the cited accession were retrieved from archives. The pathologist examined the candidate H&E slide and selected the block appropriate to the specifications of the ordered molecular analysis. Unstained slides and H&E slide were prepared and forwarded to [facility] where the subject molecular test will be performed. Results will be reported separately. [facility]ologist [facility] Material [id number] 14:02:06 Test Item Value Reference Range Interpretation Comments Archived Material The test is to be (test code = 92560) performed on tissue from case [id number]. The case report, slides, and blocks for the cited accession were retrieved from archives. The pathologist examined the candidate H&E slide and selected the block appropriate to the specifications of the ordered molecular analysis. Unstained slides and H&E slide were prepared and forwarded to [facility] where the subject molecular test will be performed. Results will be reported separately. [facility]ologist [facility] Analysis Material [id number] 14:02:06 Test Item Value Reference Range Interpretation Comments Archived Material The test is to be (test code = 73727) performed on tissue from case [id number]. The case report, slides, and blocks for the cited accession were retrieved from archives. The pathologist examined the candidate H&E slide and selected the block appropriate to the specifications of the ordered molecular analysis. Unstained slides and H&E slide were prepared and forwarded to [facility] where the subject molecular test will be performed. Results will be reported separately. [facility]ologist [facility] Analysis Material [id number] 14:02:06 Test Item Value Reference Range Interpretation Comments Archived Material The test is to be (test code = 35691) performed on tissue from case [id number]. The case report, slides, and blocks for the cited accession were retrieved from archives. The pathologist examined the candidate H&E slide and selected the block appropriate to the specifications of the ordered molecular analysis. Unstained slides and H&E slide were prepared and forwarded to [facility] where the subject molecular test will be performed. Results will be reported separately. Pathologist [facility] EGFR Mutation Material Request 2022-12-04 14:02:01 Test Item Value Reference Range Interpretation Comments Archived Material The test is to be (test code = 72415) performed on tissue from case [id number]. The case report, slides, and blocks for the cited accession were retrieved from archives. The pathologist examined the candidate H&E slide and selected the block appropriate to the specifications of the ordered molecular analysis. Unstained slides and H&E slide were prepared and forwarded to [facility] where the subject molecular test will be performed. Results will be reported separately. Pathologist [facility] EGFR Mutation Material Request 2022-12-04 14:02:01 Test Item Value Reference Range Interpretation Comments Archived Material The test is to be (test code = 03249) performed on tissue from case [id number]. The case report, slides, and blocks for the cited accession were retrieved from archives. The pathologist examined the candidate H&E slide and selected the block appropriate to the specifications of the ordered molecular analysis. Unstained slides and H&E slide were prepared and forwarded to [facility] where the subject molecular test will be performed. Results will be reported separately. Pathologist [facility] EGFR Mutation Material Request 2022-12-04 14:02:01 Test Item Value Reference Range Interpretation Comments Archived Material The test is to be (test code = 23004) performed on tissue from case [id number]. The case report, slides, and blocks for the cited accession were retrieved from archives. The pathologist examined the candidate H&E slide and selected the block appropriate to the specifications of the ordered molecular analysis. Unstained slides and H&E slide were prepared and forwarded to [facility] where the subject molecular test will be performed. Results will be reported separately. [facility]ologist [facility] EGFR Mutation Material Request 2022-12-04 14:02:01 Test Item Value Reference Range Interpretation Comments Archived Material The test is to be (test code = 90156) performed on tissue from case [id number]. The case report, slides, and blocks for the cited accession were retrieved from archives. The pathologist examined the candidate H&E slide and selected the block appropriate to the specifications of the ordered molecular analysis. Unstained slides and H&E slide were prepared and forwarded to [facility] where the subject molecular test will be performed. Results will be reported separately. [facility]ologist [facility] EGFR Mutation Material Request 2022-12-04 14:02:01 Test Item Value Reference Range Interpretation Comments Archived Material The test is to be (test code = 78146) performed on tissue from case [id number]. The case report, slides, and blocks for the cited accession were retrieved from archives. The pathologist examined the candidate H&E slide and selected the block appropriate to the specifications of the ordered molecular analysis. Unstained slides and H&E slide were prepared and forwarded to [facility] where the subject molecular test will be performed. Results will be reported separately. Pathologist [facility] EGFR Mutation Material Request 2022-12-04 14:02:01 Test Item Value Reference Range Interpretation Comments Archived Material The test is to be (test code = 93265) performed on tissue from case [id number]. The case report, slides, and blocks for the cited accession were retrieved from archives. The pathologist examined the candidate H&E slide and selected the block appropriate to the specifications of the ordered molecular analysis. Unstained slides and H&E slide were prepared and forwarded to [facility] where the subject molecular test will be performed. Results will be reported separately. Pathologist [facility] EGFR Mutation Material Request 2022-12-04 14:02:01 Test Item Value Reference Range Interpretation Comments Archived Material The test is to be (test code = 20294) performed on tissue from case [id number]. The case report, slides, and blocks for the cited accession were retrieved from archives. The pathologist examined the candidate H&E slide and selected the block appropriate to the specifications of the ordered molecular analysis. Unstained slides and H&E slide were prepared and forwarded to [facility] where the subject molecular test will be performed. Results will be reported separately. Pathologist [facility] EGFR Mutation Material Request 2022-12-04 14:02:01 Test Item Value Reference Range Interpretation Comments Archived Material The test is to be (test code = 78242) performed on tissue from case [id number]. The case report, slides, and blocks for the cited accession were retrieved from archives. The pathologist examined the candidate H&E slide and selected the block appropriate to the specifications of the ordered molecular analysis. Unstained slides and H&E slide were prepared and forwarded to [facility] where the subject molecular test will be performed. Results will be reported separately. Pathologist [facility] ERBB2 Mutation Analysis Material [id number] 14:01:56 Test Item Value Reference Range Interpretation Comments Archived Material The test is to be (test code = 99283) performed on tissue from case [id number]. The case report, slides, and blocks for the cited accession were retrieved from archives. The pathologist examined the candidate H&E slide and selected the block appropriate to the specifications of the ordered molecular analysis. Unstained slides and H&E slide were prepared and forwarded to [facility] where the subject molecular test will be performed. Results will be reported separately. Pathologist [facility] ER[facility]2 Mutation Analysis Material [id number] 14:01:56 Test Item Value Reference Range Interpretation Comments Archived Material The test is to be (test code = 68075) performed on tissue from case [id number]. The case report, slides, and blocks for the cited accession were retrieved from archives. The pathologist examined the candidate H&E slide and selected the block appropriate to the specifications of the ordered molecular analysis. Unstained slides and H&E slide were prepared and forwarded to [facility] where the subject molecular test will be performed. Results will be reported separately. Pathologist [facility] ERBB2 Mutation Analysis Material [id number] 14:01:56 Test Item Value Reference Range Interpretation Comments Archived Material The test is to be (test code = 17334) performed on tissue from case [id number]. The case report, slides, and blocks for the cited accession were retrieved from archives. The pathologist examined the candidate H&E slide and selected the block appropriate to the specifications of the ordered molecular analysis. Unstained slides and H&E slide were prepared and forwarded to [facility] where the subject molecular test will be performed. Results will be reported separately. Pathologist [facility] ER[facility]2 Mutation Analysis Material [id number] 14:01:56 Test Item Value Reference Range Interpretation Comments Archived Material The test is to be (test code = 40495) performed on tissue from case [id number]. The case report, slides, and blocks for the cited accession were retrieved from archives. The pathologist examined the candidate H&E slide and selected the block appropriate to the specifications of the ordered molecular analysis. Unstained slides and H&E slide were prepared and forwarded to [facility] where the subject molecular test will be performed. Results will be reported separately. Pathologist [facility] ER[facility]2 Mutation Analysis Material [id number] 14:01:56 Test Item Value Reference Range Interpretation Comments Archived Material The test is to be (test code = 41544) performed on tissue from case [id number]. The case report, slides, and blocks for the cited accession were retrieved from archives. The pathologist examined the candidate H&E slide and selected the block appropriate to the specifications of the ordered molecular analysis. Unstained slides and H&E slide were prepared and forwarded to [facility] where the subject molecular test will be performed. Results will be reported separately. Pathologist [facility] ER[facility]2 Mutation Analysis Material [id number] 14:01:56 Test Item Value Reference Range Interpretation Comments Archived Material The test is to be (test code = 81952) performed on tissue from case [id number]. The case report, slides, and blocks for the cited accession were retrieved from archives. The pathologist examined the candidate H&E slide and selected the block appropriate to the specifications of the ordered molecular analysis. Unstained slides and H&E slide were prepared and forwarded to [facility] where the subject molecular test will be performed. Results will be reported separately. Pathologist [facility] ER[facility]2 Mutation Analysis Material [id number] 14:01:56 Test Item Value Reference Range Interpretation Comments Archived Material The test is to be (test code = 47115) performed on tissue from case [id number]. The case report, slides, and blocks for the cited accession were retrieved from archives. The pathologist examined the candidate H&E slide and selected the block appropriate to the specifications of the ordered molecular analysis. Unstained slides and H&E slide were prepared and forwarded to [facility] where the subject molecular test will be performed. Results will be reported separately. Pathologist [facility] ER[facility]2 Mutation Analysis Material [id number] 14:01:56 Test Item Value Reference Range Interpretation Comments Archived Material The test is to be (test code = 03717) performed on tissue from case [id number]. The case report, slides, and blocks for the cited accession were retrieved from archives. The pathologist examined the candidate H&E slide and selected the block appropriate to the specifications of the ordered molecular analysis. Unstained slides and H&E slide were prepared and forwarded to [facility] where the subject molecular test will be performed. Results will be reported separately. [facility] 2022-12-04 14:01:51 Test Item Value Reference Range Interpretation Comments Archived Material The test is to be (test code = 18600) performed on tissue from case [id number]. The case report, slides, and blocks for the cited accession were retrieved from archives. The pathologist examined the candidate H&E slide and selected the block appropriate to the specifications of the ordered molecular analysis. Unstained slides and H&E slide were prepared and forwarded to [facility] where the subject molecular test will be performed. Results will be reported separately. [facility] 2022-12-04 14:01:51 Test Item Value Reference Range Interpretation Comments Archived Material The test is to be (test code = 08151) performed on tissue from case [id number]. The case report, slides, and blocks for the cited accession were retrieved from archives. The pathologist examined the candidate H&E slide and selected the block appropriate to the specifications of the ordered molecular analysis. Unstained slides and H&E slide were prepared and forwarded to [facility] where the subject molecular test will be performed. Results will be reported separately. [facility] 2022-12-04 14:01:51 Test Item Value Reference Range Interpretation Comments Archived Material The test is to be (test code = 75498) performed on tissue from case [id number]. The case report, slides, and blocks for the cited accession were retrieved from archives. The pathologist examined the candidate H&E slide and selected the block appropriate to the specifications of the ordered molecular analysis. Unstained slides and H&E slide were prepared and forwarded to [facility] where the subject molecular test will be performed. Results will be reported separately. [facility] 2022-12-04 14:01:51 Test Item Value Reference Range Interpretation Comments Archived Material The test is to be (test code = 79093) performed on tissue from case [id number]. The case report, slides, and blocks for the cited accession were retrieved from archives. The pathologist examined the candidate H&E slide and selected the block appropriate to the specifications of the ordered molecular analysis. Unstained slides and H&E slide were prepared and forwarded to [facility] where the subject molecular test will be performed. Results will be reported separately. [facility] 2022-12-04 14:01:51 Test Item Value Reference Range Interpretation Comments Archived Material The test is to be (test code = 55576) performed on tissue from case [id number]. The case report, slides, and blocks for the cited accession were retrieved from archives. The pathologist examined the candidate H&E slide and selected the block appropriate to the specifications of the ordered molecular analysis. Unstained slides and H&E slide were prepared and forwarded to [facility] where the subject molecular test will be performed. Results will be reported separately. [facility] Request 2022-12-04 14:01:51 Test Item Value Reference Range Interpretation Comments Archived Material The test is to be (test code = 37193) performed on tissue from case [id number]. The case report, slides, and blocks for the cited accession were retrieved from archives. The pathologist examined the candidate H&E slide and selected the block appropriate to the specifications of the ordered molecular analysis. Unstained slides and H&E slide were prepared and forwarded to [facility] where the subject molecular test will be performed. Results will be reported separately. [facility] Request 2022-12-04 14:01:51 Test Item Value Reference Range Interpretation Comments Archived Material The test is to be (test code = 93163) performed on tissue from case [id number]. The case report, slides, and blocks for the cited accession were retrieved from archives. The pathologist examined the candidate H&E slide and selected the block appropriate to the specifications of the ordered molecular analysis. Unstained slides and H&E slide were prepared and forwarded to [facility] where the subject molecular test will be performed. Results will be reported separately. [facility] Request 2022-12-04 14:01:51 Test Item Value Reference Range Interpretation Comments Archived Material The test is to be (test code = 16714) performed on tissue from case [id number]. The case report, slides, and blocks for the cited accession were retrieved from archives. The pathologist examined the candidate H&E slide and selected the block appropriate to the specifications of the ordered molecular analysis. Unstained slides and H&E slide were prepared and forwarded to [facility] where the subject molecular test will be performed. Results will be reported separately. [facility] Request 2022-12-04 14:01:46 Test Item Value Reference Range Interpretation Comments Archived Material The test is to be (test code = 77029) performed on tissue from case [id number]. The case report, slides, and blocks for the cited accession were retrieved from archives. The pathologist examined the candidate H&E slide and selected the block appropriate to the specifications of the ordered molecular analysis. Unstained slides and H&E slide were prepared and forwarded to [facility] where the subject molecular test will be performed. Results will be reported separately. [facility] Request 2022-12-04 14:01:46 Test Item Value Reference Range Interpretation Comments Archived Material The test is to be (test code = 08708) performed on tissue from case [id number]. The case report, slides, and blocks for the cited accession were retrieved from archives. The pathologist examined the candidate H&E slide and selected the block appropriate to the specifications of the ordered molecular analysis. Unstained slides and H&E slide were prepared and forwarded to [facility] where the subject molecular test will be performed. Results will be reported separately. [facility] Request 2022-12-04 14:01:46 Test Item Value Reference Range Interpretation Comments Archived Material The test is to be (test code = 18181) performed on tissue from case [id number]. The case report, slides, and blocks for the cited accession were retrieved from archives. The pathologist examined the candidate H&E slide and selected the block appropriate to the specifications of the ordered molecular analysis. Unstained slides and H&E slide were prepared and forwarded to [facility] where the subject molecular test will be performed. Results will be reported separately. [facility] Request 2022-12-04 14:01:46 Test Item Value Reference Range Interpretation Comments Archived Material The test is to be (test code = 91449) performed on tissue from case [id number]. The case report, slides, and blocks for the cited accession were retrieved from archives. The pathologist examined the candidate H&E slide and selected the block appropriate to the specifications of the ordered molecular analysis. Unstained slides and H&E slide were prepared and forwarded to [facility] where the subject molecular test will be performed. Results will be reported separately. [facility] Request 2022-12-04 14:01:46 Test Item Value Reference Range Interpretation Comments Archived Material The test is to be (test code = 25749) performed on tissue from case [id number]. The case report, slides, and blocks for the cited accession were retrieved from archives. The pathologist examined the candidate H&E slide and selected the block appropriate to the specifications of the ordered molecular analysis. Unstained slides and H&E slide were prepared and forwarded to [facility] where the subject molecular test will be performed. Results will be reported separately. [facility] Request 2022-12-04 14:01:46 Test Item Value Reference Range Interpretation Comments Archived Material The test is to be (test code = 67845) performed on tissue from case [id number]. The case report, slides, and blocks for the cited accession were retrieved from archives. The pathologist examined the candidate H&E slide and selected the block appropriate to the specifications of the ordered molecular analysis. Unstained slides and H&E slide were prepared and forwarded to [facility] where the subject molecular test will be performed. Results will be reported separately. [facility] Request 2022-12-04 14:01:46 Test Item Value Reference Range Interpretation Comments Archived Material The test is to be (test code = 15347) performed on tissue from case [id number]. The case report, slides, and blocks for the cited accession were retrieved from archives. The pathologist examined the candidate H&E slide and selected the block appropriate to the specifications of the ordered molecular analysis. Unstained slides and H&E slide were prepared and forwarded to [facility] where the subject molecular test will be performed. Results will be reported separately. [facility] Request 2022-12-04 14:01:46 Test Item Value Reference Range Interpretation Comments Archived Material The test is to be (test code = 45646) performed on tissue from case [id number]. The case report, slides, and blocks for the cited accession were retrieved from archives. The pathologist examined the candidate H&E slide and selected the block appropriate to the specifications of the ordered molecular analysis. Unstained slides and H&E slide were prepared and forwarded to [facility] where the subject molecular test will be performed. Results will be reported separately. [facility] Request 2022-12-04 14:01:41 Test Item Value Reference Range Interpretation Comments Archived Material The test is to be (test code = 21623) performed on tissue from case [id number]. The case report, slides, and blocks for the cited accession were retrieved from archives. The pathologist examined the candidate H&E slide and selected the block appropriate to the specifications of the ordered molecular analysis. Unstained slides and H&E slide were prepared and forwarded to [facility] where the subject molecular test will be performed. Results will be reported separately. [facility] Request 2022-12-04 14:01:41 Test Item Value Reference Range Interpretation Comments Archived Material The test is to be (test code = 33894) performed on tissue from case [id number]. The case report, slides, and blocks for the cited accession were retrieved from archives. The pathologist examined the candidate H&E slide and selected the block appropriate to the specifications of the ordered molecular analysis. Unstained slides and H&E slide were prepared and forwarded to [facility] where the subject molecular test will be performed. Results will be reported separately. [facility] Request 2022-12-04 14:01:41 Test Item Value Reference Range Interpretation Comments Archived Material The test is to be (test code = 45375) performed on tissue from case [id number]. The case report, slides, and blocks for the cited accession were retrieved from archives. The pathologist examined the candidate H&E slide and selected the block appropriate to the specifications of the ordered molecular analysis. Unstained slides and H&E slide were prepared and forwarded to [facility] where the subject molecular test will be performed. Results will be reported separately. [facility] Request 2022-12-04 14:01:41 Test Item Value Reference Range Interpretation Comments Archived Material The test is to be (test code = 77652) performed on tissue from case [id number]. The case report, slides, and blocks for the cited accession were retrieved from archives. The pathologist examined the candidate H&E slide and selected the block appropriate to the specifications of the ordered molecular analysis. Unstained slides and H&E slide were prepared and forwarded to [facility] where the subject molecular test will be performed. Results will be reported separately. [facility] Request 2022-12-04 14:01:41 Test Item Value Reference Range Interpretation Comments Archived Material The test is to be (test code = 00569) performed on tissue from case [id number]. The case report, slides, and blocks for the cited accession were retrieved from archives. The pathologist examined the candidate H&E slide and selected the block appropriate to the specifications of the ordered molecular analysis. Unstained slides and H&E slide were prepared and forwarded to [facility] where the subject molecular test will be performed. Results will be reported separately. [facility] Material Request 2022-12-04 14:01:41 Test Item Value Reference Range Interpretation Comments Archived Material The test is to be (test code = 38052) performed on tissue from case [id number]. The case report, slides, and blocks for the cited accession were retrieved from archives. The pathologist examined the candidate H&E slide and selected the block appropriate to the specifications of the ordered molecular analysis. Unstained slides and H&E slide were prepared and forwarded to [facility] where the subject molecular test will be performed. Results will be reported separately. [facility] Request 2022-12-04 14:01:41 Test Item Value Reference Range Interpretation Comments Archived Material The test is to be (test code = 47550) performed on tissue from case [id number]. The case report, slides, and blocks for the cited accession were retrieved from archives. The pathologist examined the candidate H&E slide and selected the block appropriate to the specifications of the ordered molecular analysis. Unstained slides and H&E slide were prepared and forwarded to [facility] where the subject molecular test will be performed. Results will be reported separately. [facility] Request 2022-12-04 14:01:41 Test Item Value Reference Range Interpretation Comments Archived Material The test is to be (test code = 12719) performed on tissue from case [id number]. The case report, slides, and blocks for the cited accession were retrieved from archives. The pathologist examined the candidate H&E slide and selected the block appropriate to the specifications of the ordered molecular analysis. Unstained slides and H&E slide were prepared and forwarded to [facility] where the subject molecular test will be performed. Results will be reported separately. [facility] Material Request 2022-12-04 14:01:36 Test Item Value Reference Range Interpretation Comments Archived Material The test is to be (test code = 06574) performed on tissue from case [id number]. The case report, slides, and blocks for the cited accession were retrieved from archives. The pathologist examined the candidate H&E slide and selected the block appropriate to the specifications of the ordered molecular analysis. Unstained slides and H&E slide were prepared and forwarded to [facility] where the subject molecular test will be performed. Results will be reported separately. [facility] Material Request 2022-12-04 14:01:36 Test Item Value Reference Range Interpretation Comments Archived Material The test is to be (test code = 23797) performed on tissue from case [id number]. The case report, slides, and blocks for the cited accession were retrieved from archives. The pathologist examined the candidate H&E slide and selected the block appropriate to the specifications of the ordered molecular analysis. Unstained slides and H&E slide were prepared and forwarded to [facility] where the subject molecular test will be performed. Results will be reported separately. [facility] Material Request 2022-12-04 14:01:36 Test Item Value Reference Range Interpretation Comments Archived Material The test is to be (test code = 16734) performed on tissue from case [id number]. The case report, slides, and blocks for the cited accession were retrieved from archives. The pathologist examined the candidate H&E slide and selected the block appropriate to the specifications of the ordered molecular analysis. Unstained slides and H&E slide were prepared and forwarded to [facility] where the subject molecular test will be performed. Results will be reported separately. [facility]ologist [facility] Material Request 2022-12-04 14:01:36 Test Item Value Reference Range Interpretation Comments Archived Material The test is to be (test code = 41731) performed on tissue from case [id number]. The case report, slides, and blocks for the cited accession were retrieved from archives. The pathologist examined the candidate H&E slide and selected the block appropriate to the specifications of the ordered molecular analysis. Unstained slides and H&E slide were prepared and forwarded to [facility] where the subject molecular test will be performed. Results will be reported separately. [facility] Material Request 2022-12-04 14:01:36 Test Item Value Reference Range Interpretation Comments Archived Material The test is to be (test code = 53375) performed on tissue from case [id number]. The case report, slides, and blocks for the cited accession were retrieved from archives. The pathologist examined the candidate H&E slide and selected the block appropriate to the specifications of the ordered molecular analysis. Unstained slides and H&E slide were prepared and forwarded to [facility] where the subject molecular test will be performed. Results will be reported separately. [facility]ologist [facility] Material Request 2022-12-04 14:01:36 Test Item Value Reference Range Interpretation Comments Archived Material The test is to be (test code = 94833) performed on tissue from case [id number]. The case report, slides, and blocks for the cited accession were retrieved from archives. The pathologist examined the candidate H&E slide and selected the block appropriate to the specifications of the ordered molecular analysis. Unstained slides and H&E slide were prepared and forwarded to [facility] where the subject molecular test will be performed. Results will be reported separately. [facility]ologist [facility] Material Request 2022-12-04 14:01:36 Test Item Value Reference Range Interpretation Comments Archived Material The test is to be (test code = 00520) performed on tissue from case [id number]. The case report, slides, and blocks for the cited accession were retrieved from archives. The pathologist examined the candidate H&E slide and selected the block appropriate to the specifications of the ordered molecular analysis. Unstained slides and H&E slide were prepared and forwarded to [facility] where the subject molecular test will be performed. Results will be reported separately. [facility]ologist [facility] Material Request 2022-12-04 14:01:36 Test Item Value Reference Range Interpretation Comments Archived Material The test is to be (test code = 79442) performed on tissue from case [id number]. The case report, slides, and blocks for the cited accession were retrieved from archives. The pathologist examined the candidate H&E slide and selected the block appropriate to the specifications of the ordered molecular analysis. Unstained slides and H&E slide were prepared and forwarded to [facility] where the subject molecular test will be performed. Results will be reported separately. [facility]ation 2022-11-27 23:08:26 Test Item Value Reference Range Interpretation Comments Materials Received (test [id number] code = 9973) REFxIIOyf5btZNSokQQl ZzEwMzNcZnRuYmpcdWMx GUBpVsFqe6zar245hQLe b5veBYPzCyM9bWArWNKa tLVkL825DVOtEZslx0ti v9OxOWItuNEbg8M9MKBB nbqgbRr9wQgeH29mv8O9 CmtgS8xnSJObEUQgJ6Qg FB2vQRSjCor6ORP6CIB8 CIKcXYZnR3RjAB7kPKVo xXBdPDs8f6zuiXiuAHJn RDV1r9wsEZipyoGhPY3n rb1rtDx0d0mdqbMsPLJf IFHrfUSZVAZoP7OksKfm Iv5uxSl3vSvhMfveZDX1 Dld2NX6rgp52oxv9eNlq QYLhuqtdRdP7LMagKYHn ijleKCh8IAeiXIHbjAkk MFxtYXJncjcyMFxtYXJn ySM3HGThrIOrR1AzVEWw MPalFLWlhuw4QgFaKg0u cXAzgBlxIBhop6sde0fc nGZuLyk6NJGqYjVyZquc SAwew8Ewc1wxXUUbzo7w KJI4yILhmLzte4S5fSSj XKVjhJArncRaJIWuiq63 jMAzwEFkkJPbzu3aeeVq cMJcxPIaXLM5rEHbpeJf TWKqyKVgEVVgSL6eqEPb TSCwyW1oknwcNQFnCnUf nnksCTFzdLjcliJeJi3z wVbzRFS0EEgyW7kdtG0t CbV9ECiyW4rdbG6rVOv2 ZUbikTZ4DLBjdU9xUN8b saezs4igTpSmQR2fzfng p0gvZbZbSW0gihf5u4gr SUT1UMzcMBTbXwN8ouI7 NDBcaGVhZGVyeTcyMFxm f015RIX2LoLxVLNum1Ji G5YbkAdkE65czXwfT97s CHPocRwhiK8dzUagzQ4l HaHbQqUfELg7dd06ZTx9 tbcnmLdsJUk4knDnRRKf ERB3IPKayXArKCKuC5l0 pyNjMLRaXKI0ZHPxtREp RUUyS6v3ujLeYAY7ZZp6 cnBhZGRmdDNcdHJwYWRk YjBcdHJwYWRkZmIzXHRy uRVfgWPowBTuhI8hkLkf FIVwhQGreN5kEZX2KDUo cmgzMjBcdHJoZHJcbHRy gb42MXYqibCzzVYtoEab rHLgCTY3WEVbAOOyEBXa OIS8LASeAoYwqwCgSVxu bGJyZHJiXGJyZHJzXGJy VJU0RCHrUfXvvmKaNCof bGJyZHJsXGJyZHJzXGJy UWJ0XHEuHoYqlvMrBFbs bGJyZHJyXGJyZHJzXGJy GUO2BEQjKrVnuzNuJIaq bHBhZHQxMFxjbHBhZGZ0 D7wykHQaVQRkZEgyjPAq HCXsE0jmjPCsDKwoFYSp cGFkZmwzXGNscGFkYjBc R9jtZTQpLvGeN2ZeqFg1 MDAwXGNsdmVydGFsdFxj hQWiOSW1ATIoKNKmRSEz RRC3CWMlZxQjvdHjLLbi bGJyZHJiXGJyZHJzXGJy SNG0MRNlXnYmwhHeBXle bGJyZHJsXGJyZHJzXGJy KFX4UTNdPrMoojYmMRoe bGJyZHJyXGJyZHJzXGJy VOR9LSAjTyCovdBmYZom bHBhZHQxMFxjbHBhZGZ0 G3tmzJIoTZDyLCyfvHBa JPTvP0gwnYCuJFmwQZGs cGFkZmwzXGNscGFkYjBc Y1zpUIAbXcGnS0ZggDl0 NjAwXGNsdmVydGFsdFxj wFQlVZQ4ZERvGXNaZKEy MNO4KIKySoMsvdVbJOpt bGJyZHJiXGJyZHJzXGJy KXL4QACqYtFjbvDeSIax bGJyZHJsXGJyZHJzXGJy DXS7HTJqYvVbbyXhGPji bGJyZHJyXGJyZHJzXGJy EHR1IRAvMhQourPrSJis bHBhZHQxMFxjbHBhZGZ0 N8hzbWDcKOJvAEoicMSu QKXaD6fayQDoAUcbMAOd cGFkZmwzXGNscGFkYjBc J5opQUCdQaRnX1OkzAr7 ZyNpMGAdhlKgaV13Khrw u8IxITNqACN0IYhiJQaf bFxwbGFpblxmMVxmczIw CYheaswmDPNgIHsyY9ny XxUgCFVuoCgrZMgdn5Cr XGYxXGNmMlxmczIwXGIg UGUhOXTcvL1xRlacY0Up lE1jFKisVdadZ7ueUPOi e6BkfZ8aOLzmdDKspntv MVxmczIwXGxhbmcxMDMz NUdbL7peIzZvSUAkdElt OFyen5CkTFGsTCWhQvel hmErKJg3pjWvQWPgxEzp uXJnHRburoJsaBpku5Rw qvUglZhxZOXjSLp8lpOb wchlpSb6dDXvvSfsPNLi kBdlgA4xNjIbQvTwAAsk bGFpblxmMVxmczIwXGxh onwlBSHpZOzmU2ywXnIb AXHmxOfdBDgfz1PfDKUk WWDhInrsgvMzHTRrO32z bGVjdGVkXHBsYWluXGYx XGZzMjBcbGFuZzEwMzNc aGljaFxmMVxkYmNoXGYx MGnuC9igSqSfP3YtDCEm SiLnsHKuE0ptK8VwwFon YXJkXGludGJsXHNzcGFy IBI8rZVwivSafPOdaJYv JDOdQHlmDRN2bPKiriah aCFgadqnWBzqxpT4BEXi YWluXGYxXGZzMjBcbGFu ZzEwMzNcaGljaFxmMVxk RnLsIDPtCZhnN5syGuPw S2HwPVGxHnAbKoEDCNWc aXZlZFxwbGFpblxmMVxm czIwXGxhbmcxMDMzXGhp J7opBpHsNGFckMeeBKxm f2WlKTEdECMfObbdrxRe BGb5eqTgWBKgzBmexM26 Lkekpv16CXYkw4fzBEBm H0VbsEKxULPqyBIsKQyd MDhcdHJwYWRkZmwzXHRy cGFkZHIxMDhcdHJwYWRk ZnIzXHRycGFkZHQwXHRy mBEcWJA0M2u7kbCoZALj UFf7ooQfXQNbOqJoxBBu HMY6MDg8EcarahK1zONh Q8e0EfstyjZfIUeuiAQb vf44SHDhmuEnlUNpuPid iDNcJDM2PFDyYDWfWMMc VCZ8HMYaRdAfdgGkJHbz bGJyZHJiXGJyZHJzXGJy RRU5XODxZjQnknJvPLlu bGJyZHJsXGJyZHJzXGJy MKM6GRYmHxBdojJeXNxt bGJyZHJyXGJyZHJzXGJy EYX9XVAiNxUrlrEqJEio bHBhZHQxMFxjbHBhZGZ0 N7cliQNbZNRnUIysmKZm QHAwJ7bbpZSaHLpvGWJc cGFkZmwzXGNscGFkYjBc P0swWCVzRfTkH1ZobVv3 MDAwXGNsdmVydGFsdFxj sIWmRJJ9GMStAEZtSUDd GRZ6RDZdJqZtxnIrORco bGJyZHJiXGJyZHJzXGJy JEN9KVBoPsWnrfMnRKzj bGJyZHJsXGJyZHJzXGJy DBU0EEIpExXsibXyLYnw bGJyZHJyXGJyZHJzXGJy XRH9PYEkBtDsaaAsDAur bHBhZHQxMFxjbHBhZGZ0 Y9sjcPXhAYUkMAxpfIQb HFLlT9woqFEiZRxhZHWg cGFkZmwzXGNscGFkYjBc S7pfDMFvTsGiT2NcaOl5 NjAwXGNsdmVydGFsdFxj uRQrXJK3JFAwDFIlNCEf EQC0TIHvEmMjsiYgFQal bGJyZHJiXGJyZHJzXGJy LRV9SGEnXnAssbOkQQfi bGJyZHJsXGJyZHJzXGJy QFD1ZMRqIeRhdaFbPFqh bGJyZHJyXGJyZHJzXGJy YUE6WDNxRwXmxnZzOVtf bHBhZHQxMFxjbHBhZGZ0 N3vclEOqPCJeLUjybULr UHJfM6hmpGCmDKhrJKMv cGFkZmwzXGNscGFkYjBc F1tlXOBvYqUaB7TbaFt6 YyHxZXRzwsDmpT50Gkfm v2NqGLJrHQB6FHipEMan bFxwbGFpblxmMFxmczI0 XHBsYWluXGYxXGZzMjBc bGFuZzEwMzNcaGljaFxm QYbnLpZwCQFoQCdsS7rr IxRlM0EaQAEmFpQsSU2t BwU5DLNiLFrnDNM8SZSO IXCfTGYBK6XPPeubSGSZ Q0QbvWipkR5bMlKlYdWc AVgbBM0qEJRpX5urjMMe VJSeHOXzA3kuMeMcuA4o aFxmMVxjZjJcZnMyMFxs dHJjaFxjZWxsXHBhcmRc zQ42Ovdgs8DjGAMgIPG7 MFxzMFxxbFxwbGFpblxm WOjtcfP4OMNnKUmkHBWq XGZzMjBcbGFuZzEwMzNc aGljaFxmMVxkYmNoXGYx FXhxA4vwKeKxC9YcJWJl MjAgMTIvMTYvMjAyMlxw bGFpblxmMVxmczIwXGxh nyooHEIuXDdwA6kaGgHa FMUawEzaXHuiz3FbWBMf XFEfTytxnmQjABc7mnKo XGNlbGxccGFyZFxpbnRi pItuz6VojfRizLdcHLLt XHFsXHBsYWluXGYwXGZz SkGlpEuqeI2gXxVnIxHl ZXqsWW3nJSAsV8cbpGLo SUYmKKUqN1siFhHceJ5i aFxmMVxjZjJcZnMyMCAx IxM7CpUrTtMtnNftiU9n PdHnCkWnRLnsXS0pVTHw E6mchQWyLSIlMUNjT8dp UfJyyX4klDazZTxhGzSw ZnMyMFxsdHJjaFxjZWxs KHzrkGAiLBWhk9puBEQz RCEuwMTeDVY1kPNedgPo yZwdnOqflD5jYuKzOjDw NFxwbGFpblxmMVxmczIw YBkvtkktIXDyCXulS1cb YdToKSUvzKftAWwyo6Lg XGYxXGZzMjBccGFyfQ== Addendum 1 (test code = x8lajZXyHAXypZTqSZFb 37) DzzycbSbPQNjmAUlA7Tw onmlWGeuBF1sPT2xwEuo pMSpoVImVLOhQyAyr9oc p233nQWli4zhIBQWKVju KAMSJHz3y6clYHASgwxn oIs6lYjmS64td0Z1Sobr C35chFZbDKQ2SLWfUCHv mYCaZONyEAE7VDQtiTXa A6eyBJLeQW0sxjvgMAhe CWrtHEUyaVL0QETcuCDu O4HuFYXfYQkeMJBulht9 WgJyYs5ikXUimUuoLDvr YXJkXHBsYWluXGYxXGZz MjAgQXQgdGhlIHJlcXVl f6Yzg9JlsAtzBNGvFNW7 tB6yPWEeuPSbW2uoluZ3 jHQoOd0tkE60uS5zVSE9 bCNrHFOhy2TgVRNnSFPq b7DvDPHrKT7yIEburGBj vOXneSQwBIR4QD7ELNPa NNIop82vYaEqyZGqYLLg lbMsbPDiYVCkKQA9kQ2d ciBjZWxscyBhcmUgbmVn XYZzgkQtOz1jAUnfyuHt ZGAsFDQuwJTpzH89ai6c zQD5x6FfYJ6mH0DdDZLj CDc5y0wxDjXrrSMzEZUw mmAsaPLjXICxAXQ6yI7o fwEqKOilumKxheOsfJ3p aXRpdmUgIGZvciBjbGVh dgExWP3NDHZKLMBaIUI2 XUJpGVBwnDJipI83un4k uCZ1g2TcGL7uN8YjPURa YQr1e6ujSrRyzRNuRKNp msLLUM6PCXRyI4juxgWu MjJDMywgRGFrbyBQaGFy qVX4NPUWy53ffU0nCPPM h7KomPc3FCMXX05rBKOq O5BKBRwmpCQcuYOcbnL6 aGFuIDFccGFyXHBhclxp THGxXWIlm7C0IMeaEx1k rRQ4pH1lWOTaLUF3PQKk aXMgYXNzYXkgaXMgbWFu yVJyA2H0ifIuTJJ8CLSm aWxlbnQgRGFrbyBhbmQg jZFoxwLoOH9crv5ogO9f RLrhRC52kN5AZD3YRSda O6jwuqNaLfVUNr7tZFCd uUFfhHKcAy4yiKBkKO8b WTPjhf1orHkyCJUgtLCi IHBhcmFmZmluLWVtYmVk CHRuEPGaz6Y3AYZ1r0ac FzThhkTMN5zaLA14OHYu a46hDVR7q1I7IWzdXDOc WS8cGJXkySrfFJRmOfFn CWGnZLP7OJI1qL3qGSog qEjuNXHoj0IgP3ukjLMo IAJ6ARQzOOIoPE50KrPj hVBhUAUbDSa9LVapICUs sJZrjfZhIWEjcvR2c1He IUAkXQPto60uBF1cw54n UMkzC29kz9RoNyFvd3Pa e8VzD2bvvTQyoJyraeVv bNBjSN8iQUEhoqEnsX5x sEBtw2AjtFbvAGJlP75i XduiMGLlfZ6ggYUbseFm l4JsqlBeLZOCBfiqyRNg G8OeI4EuFZRpBCQmdjR8 oWWmsiQoTaXzUO3jEZTV WMrnPTN0RWbrzT8jZJJp eJkyJUd7yPOdjDDgqS53 HFLlodLyePCbn3GjX7Va uBSbc2keq7tqLpNqBP2d cxQrm0MiZUL4PAffvV7r VH2wDJMpgSLpbcOsmgQo lEa9GDf9uODis0V5pGIq GJVvNFNzKRXdy5YsKNcx acCbmaW3yPWpzCIyu4Dv XOCeFNYdmM36xR0rXK2q tPJxZU8eeFEdn3ZxV1s0 f6UqIABcxNLvo2EwyK3t couat3YqON01YKnmhKPe z3d0bOblWAu3rULnZJJc fBS5oDIvmA79FRefpxRi JmAgWD8rDKMkEKMvRGOc qqAfr2b7SGR2lK7jltJk ZWxscywgbXVsdGlwbGll ZCBieSAxMDAuIFRoZSBt KHudhFMoAFDfn1GbRVpj NUUsMrkcOMIuZOQnW4NF UKCnYV9hvLPfUVtiQKPg clxwYXJkXHBhcn0= Diagnosis (test code = o9ymeSCeKCMkfETsBYGc 34) NwhstyOvALWpmPEqQ0Dw ydgyPNieEG4hTX8bxCyn xSMimKBgFXOcVtTxh4po b859wMEyo5gaCDPAhocx eMw9qNsnJ11eq0J5Dypt Q3phEROmQMkgXJUyPPrt cTEoHQh8SKGgiKIofsMa XiHuOLPnlAPmtBT0DWQs OC6kromhHUisZUeuAHFg zpH0NABraUGrM1LwHTQd XW3gjqpdUZR0WIbxOFUb BVF0OtAmXMXrp4Jkklr4 MjBccGFyZFxwbGFpblxm czIwXGNmMSBPdXRzaWRl DKpvMveHCvY4LcFcQSyz W4RfXTGlPzdXB2gFNXUw DYWMLkbgB45caFTijCTq VA2yYVHtCxK5WyOnSkNw RujfEAYgP5RoSOYzbmzo bFxaRIdgxP30EoBlNlBt q9WnHLV3nzxcHMFqq2Zh dHxcgVHbNAfxJnV8EMxv uW74XqTncMybTzF2LFEA GRYET6hZRPYSU8VWYiTL BYPJWB1QNDOqKOCJLNZP POFPVk1tNDqGLAKrFLHu K53vtBZpeOjcCZWuqDEf XGxpMFxmaTBcbGluMCBN RFcvRkxaIFxwYXJ9 Comment (test code = r6iddLTqDKHqyNPtMAXk 9834) WwldybFySGIwwSHrP1Fg dfyjNGyhFN2rWQ1cqToo dCOscKTsQPBiLkPnz9cn h120pLNln1zxWWWLyspb bDo3rXfaD36xb0P7Gcrw B82ooGXjJSA2RHUhBYXn dNEqWKHqJQT8TXGjjXGy N6saHQWrGI2qzpuqQSwc KAawSGVuuHW2GPOpiZLt M8DjJDGqIZbeSJLgzpj0 YzVwCs2ovBPkdRxrQHze YXJkXHBsYWluXGZzMjAg Q6YwqPp3bLLaAOeszMHg g6zqz4LoW3vicXkuSGlp i1JriK3pEBBfsrEgto1l ZCBieSByZWZlcnJpbmcg hC3qiPh4kUHfq09hc0od lzY4tXC1MOOBSpOqmLwa bGlnaHRzIHRoZSBlcGl0 aGVsaWFsIGNlbGxzLCBh bmQgcDYzIGFuZCBwNDAg tUgbqGgsU2d9muX8wQQn bXlvZXBpdGhlbGlhbCBj JCfqco7qMAJcIUPqe3Vl rB1ka9a1EELlXLIynI16 fr1zzHAow8E4tIMogFBq i6CsqF5xcNd1WXXyDyQ7 nHfiIQMrILYmdYGyE2Y4 zP8iOjItzWWjfQ== Biomarker Block(s) (test o6txxJLoBTOjzZRpGAKg code = 9841) LdwpycDxUMEapCXjJ8Le wobtCUgyDT7oHH4zpRyo tYIuqBLjSIKqJjSlg5wx u195aZEbu4kuZPYHbved kAo8rIuyZ47ht4V8Luxo X3dxOMWdKBalXLCqLTih qQJgNZb0XELjdAAhnpSc NqGnOHYlkRSvpIW9WBNi DS2gwsyuTJwkYLbjXUBm uwR4YQDrrABfE4WsADYj PF2dhflmEHV2JAanIWPj KDY9NaBuHBEpx9Cyaiw6 MjBccGFyZFxwbGFpblxm slUpLBN5jN8gFVKgs8Ux OiAgXGNmMSAyMjpJUzE4 NzBccGFyfQ== Disclaimer (test code = w3mqrVKiNTKznBEwAvZh 9844) CBCnWLSyk4oaZKRaiSQo ZzEwMzNcZnRuYmpcdWMx DSShJlUbp6iga247rVZw m4uhSYArNuW3cQPrFKPk rAQkD469UHFtTJydm0ef i7HdIIEmsRPve7C0GGYG rljljRs5pQjlP14da3Y8 AtjlM5yrPBDrJDBzY7Nr GW5pZODzRux4PJK9FZW1 UKJgPPWcT6YpLD4eJCNa cYEjSUz6g6gyuKlqSCHu INZ9p3hfTGnjzoTgCS0b up0mhOp0d0nzdnDmAIRx WSHyjAHYOIImE8MjpVee Gp6qeYe3oCaeXatuMOH6 Vte8PH8kko41jny9mHje HBVoxpxmAqJ3GNhbYHSz wjpgEZj5EIizTNOzkSO2 XQTcgLUkB1OsANSmCU3h iyd9IZK0YMznPSMsIuH2 NDBcaGVhZGVyeTcyMFxm w016AYS3PbOnYU7iE3Wk b0J0gH1ttAUvAIYgyQYz HuXfUOCqkv6xhKHjNOgg m5IoWXG3jkT3bXGloWRc GNFpOU54Wjkom1FlGtqu XZI1IMVzlvZsw2Fuc1ot IzSkebCaW8awH1IhBCRu GTEaWEPoCuYjrxLrz4Vm r6DchFXfmBn8w0vdJMTt MNPlnIccd5lnXTO0DFOp O2L8dQSdt2suRVyxVJAe dOH7xvK0ZBLtiCAnN6Vg wU1vVPKeZL1vpxm9i7bv DQN6TLrtGRZtLrF8feY3 NDBcaGVhZGVyeTcyMFxm h720JAS3JxVnTRKzs8Xl Z1SibFppM95vsLemC14y EYIksGnamI9sdYmnqK0a ZjBcZnMyNFxxbFxwbGFp mrdkDPicyyX5QCubxeav QOYqVAcoL9kaXaVmZWVv fKlkSXjfl8KpADZfQVOt DyjiheP7BFNZh85uAIBj i0TgGYWmeD8ulDNzWNqo prRzlKG2NZgxcvJsLzGy faMjWTDgeA1vEFEzAC2f OCOdvbVgvv0qkdObVYLt CNUhM0BtsugmwUuaugCx RKHudf2thvYzPWK2EDUR VL3RQWYtTZZou96fBKVr rOxiyQ3fuYFeauErHTYv b2InzJ6chAYFGWMqW0hw GB5dWXjlm1OljZPwpDCd qPC7LSNej2WxNfOliyKv aYVymVNfR4PaiWvoL6iq VGHsMJQgnnJxcRFwk8Ln DDGyoUL6vEJbYF0JDsTO x72zBXJwNXGZnhYrXOSx oVqquFM2dvP2gK7ySnAO ZiBhcHBsaWNhYmxlLCBj c699lv2rxjG5HILhXIAn uolcy5FlUSSlVHOzfR53 EVJrITCwbm0vurskiDQj myFgB9Vicxv7zH9zZMWm YWluXGYxXGZzMjJcbGFu ZzEwMzNcaGljaFxmMVxk FoKyTAQhDUlqF7bhJlZk ZnMyMlxwYXJ9 [facility] 2022-11-27 23:08:26 Test Item Value Reference Range Interpretation Comments Materials Received (test g0twgKXcZPZbrGJvDjIk code = 9973) FYCpDBJib7rzEPVgkLOr ZzEwMzNcZnRuYmpcdWMx KUEqBiOyu3owb943nIVe s2xzBTAnIxX8zBZrDRSs zKDcM613THFsRTnjf4bt p6AnRKYotTEpu3O4QJDB lptkkNx7uNzfJ48lw7F2 FdqnH7fqNWVlHGLtS2Wh DW7hFKNbSnc3QZQ2ZHZ3 BZNbOBZsM3IqJA7eNUIg qJCxHDp3e7hqpEoeNJSo QGR9x3egFLdtguSmLB3p fg8yaPd6p0veblAnOXSh MUNzrGZVHNJxL2IuyHgv Af2fbRf9mPzuXursBXB2 Czf9LP0lfz86qxa1jJru MFCrpovlZnT1PErtCBQo gfoiWEh1QRzoBVUxjQkv MFxtYXJncjcyMFxtYXJn vSI8OSZbqTVqX4XhMSYu PDvqADKbhte4XuEsAe5l yNJcdYniIJeyq8bme0of kTVjBdh3BEXuWeGiJskr TLpbp7Yuq6agVKVqih9c GNN4hBBpuUgvp5X4aPUw BUFohNBivdNbCTInol64 vSAiiSVabMGgcm8qlmPe sQZnmODkKMW1xMKbhtDw DNMyaIMiZUBaPP3afMVa NENtnY9svygnZQYwAlGy hqztNYYskJkqrtLdXu5o yEwyBBF7BTwtO7xzmL8v IwQ3VPdnN9kdnG0qLDd4 ISjgtCT0YBErvP0zZW1m uoxvp8xrVzLsVE8tauls e6xzYdQiIQ9depf2s3mv WXW3XSpvCNBjWhB8ggU9 NDBcaGVhZGVyeTcyMFxm q924JTD0AmTbUIVpk8We O1MyjOqvH36hwVhpH09c AIAwiQqgxR6knQumkW8k GsWdUrYtGDf4mv01DXx0 bbeirNdqBBm9teMiFNHx YVX9NCTkrTAqPYDvO6d1 adArMTUoCQY1YHEmcQXh GYZxQ7p8btTcWZF3FNf1 cnBhZGRmdDNcdHJwYWRk YjBcdHJwYWRkZmIzXHRy xFBreNQmeOJjiA6zoFau ODQilPVkzC4pLBX5QIEv cmgzMjBcdHJoZHJcbHRy vm26XCSpyaWndNMccIhv jWTrSMH0VWOlFJApLXFp SJB3VQXbJcZlmnJhIBsg bGJyZHJiXGJyZHJzXGJy WCK3CGAzBhXxteYrQVac bGJyZHJsXGJyZHJzXGJy YEV1JFDnDdVglwOzZMkz bGJyZHJyXGJyZHJzXGJy JEG5OEJcTrTxilHnCGni bHBhZHQxMFxjbHBhZGZ0 O8vtuPUjHBWgQMycvXVy EHUjD8qztRChREhjVTPl cGFkZmwzXGNscGFkYjBc F5goEJJuJeYoI1MckXd4 MDAwXGNsdmVydGFsdFxj aKMwPBW1CFXjJLUxCWMo IMT1TQWhRdCqfaScFHpw bGJyZHJiXGJyZHJzXGJy MNB8WLVoIcEhrxLrFVjs bGJyZHJsXGJyZHJzXGJy TCO1STEjTuFfmzJmOQov bGJyZHJyXGJyZHJzXGJy YKX5FMZlSgVzqzKtCJng bHBhZHQxMFxjbHBhZGZ0 M2mhmEMfYTOqQBduePFj WMXtW5qpiROmPVvnFCGu cGFkZmwzXGNscGFkYjBc I1frMCAfDeWvM4ZwlGg7 NjAwXGNsdmVydGFsdFxj pRThZZA2VDLeMFOqLPPk CUN8DPHhVjUwjoHlZLwe bGJyZHJiXGJyZHJzXGJy IQU6RAEmYhCgeyAuCZji bGJyZHJsXGJyZHJzXGJy TFH5NAKlEeVytpCsDHep bGJyZHJyXGJyZHJzXGJy WYT4VCOeWhFaksInUGvo bHBhZHQxMFxjbHBhZGZ0 S8duxJNrEWYdDJyjpCKo HMGsE8pzfXFcIVnoBNFm cGFkZmwzXGNscGFkYjBc R6fzFSOfVpJqS6DokSw3 JpGdSURwrbFpzC91Aock v2HmNHOzVAK6KVsgHIhm bFxwbGFpblxmMVxmczIw ODbdehtgIAVoSDdsP2go QuYwSNJwgJecVXpzf2Si XGYxXGNmMlxmczIwXGIg ENGuQMHcoL5zRpafX1Pf fO4bXRukVmklK1xgODIn j3QliD2jRUekgIFwgiqh MVxmczIwXGxhbmcxMDMz UBqkB8heIiLiSTPtiTbd QQxyh4KnEQFvPNVsBpzt etYgFXl4cnPfQTBcwFsz dQKaSYudelScbPngc9Qe prXmgOahWCKvXTl4iyFw yzbafLn2xKOqkCilNETv oNvdsX1mZuYxUgMlRNxh bGFpblxmMVxmczIwXGxh qfseLOCtACidA6ewIxMc AYFwsSspHYwpl2YtUOOi HIYvTlypowOaIHHiW91e bGVjdGVkXHBsYWluXGYx XGZzMjBcbGFuZzEwMzNc aGljaFxmMVxkYmNoXGYx IEgsU4deBjJmN3DmDRIa LnRvtHVjC1uzX3HbgDqx YXJkXGludGJsXHNzcGFy PXY1nLDcuzViwJZzoKZi MVOoOJbcKUY7fDEfppen wMDygjssFXkvkqL8TFPh YWluXGYxXGZzMjBcbGFu ZzEwMzNcaGljaFxmMVxk OrCaGZSsRNtuH3qmEbZr A6LdEHVqDfSqPzELEWWg aXZlZFxwbGFpblxmMVxm czIwXGxhbmcxMDMzXGhp M6ceAhFwNBRhzYodCRmf h9ImPQIrGADbQhsvyxZv KBu1cyEiYIElzHwwpZ61 Nyekho91VWIlp6tgYWDa I7UhnAKaKBZdmVTcQLij MDhcdHJwYWRkZmwzXHRy cGFkZHIxMDhcdHJwYWRk ZnIzXHRycGFkZHQwXHRy nFGhKCF2I7c4qyYsJAZr VAe7gkMwGNPsQuHexDDj OVX3OLs9PhuvexL5pTJg Y6t1GswannYtGWmpnASf mx10RCKyssDpoUDqaKfx tWKgFVN4MKZcYYFeZTRw ASE0JETcQpDziyMiJJfi bGJyZHJiXGJyZHJzXGJy WZG2INDjIzFlihXnXFco bGJyZHJsXGJyZHJzXGJy DLJ4JFTpKdOlvfOlJGeo bGJyZHJyXGJyZHJzXGJy NTJ7BIVoWvLgyoGvIPei bHBhZHQxMFxjbHBhZGZ0 A3gyxFHcCIQkKUqzaOOn CNOhV5rjgAIvIFzcQWCb cGFkZmwzXGNscGFkYjBc O6hdYWIoJqLoA5AjuBf4 MDAwXGNsdmVydGFsdFxj cFCvIFR2KRBtPSUtTJOv AJK7XPOpZwBhksPoBUqa bGJyZHJiXGJyZHJzXGJy PVH3UJXlUcSydeNwCTfy bGJyZHJsXGJyZHJzXGJy ELU7XGBxOlXlanMoYOyq bGJyZHJyXGJyZHJzXGJy WQI3BALrQmVkmjYsQOgu bHBhZHQxMFxjbHBhZGZ0 I1asfGCsCPYbLAyasPWs MVNgV3nhxZPeZPlxRHYu cGFkZmwzXGNscGFkYjBc U3fvMQJvZcNvE5MtnKf2 NjAwXGNsdmVydGFsdFxj wFFiGQJ3SWLlKCXrBSUm EPL8TLXcJlJrasHdFWgl bGJyZHJiXGJyZHJzXGJy UBD9PBJjIaHowqIlFJzo bGJyZHJsXGJyZHJzXGJy AAE3QJCyHbXzeeZzIMob bGJyZHJyXGJyZHJzXGJy NMQ3PXFqUxKdvsDhTEhw bHBhZHQxMFxjbHBhZGZ0 N6iivJLfLDHnLBjgcCZr SACaN5gcsDTxJPqtNIPt cGFkZmwzXGNscGFkYjBc T7mrCUTpGzDaD7XncXw2 VwCtYLHmzlUiyJ15Sorh i7LtCETiPVV0AMobGBsv bFxwbGFpblxmMFxmczI0 XHBsYWluXGYxXGZzMjBc bGFuZzEwMzNcaGljaFxm CDgfYdGmJKRsOKssR2mh FpYuD1RnHRChJkFtXW9n YoV7QQTjGUrmSOG3WPBS MHWwNNDMG2WJBywxHTRD W0CybIwhiO6pXfXvPtMk VFbpCP5uNTYlY0cfoHJo CWVnJBPvV1vbCwBxuN4q aFxmMVxjZjJcZnMyMFxs dHJjaFxjZWxsXHBhcmRc cC14Rkcki0KdMKNcYFW7 MFxzMFxxbFxwbGFpblxm DSznppD0VYUaMJdpEKMm XGZzMjBcbGFuZzEwMzNc aGljaFxmMVxkYmNoXGYx ELcjM5ipVpUoF5QtDBCc MjAgMTIvMTYvMjAyMlxw bGFpblxmMVxmczIwXGxh yexaTAEgZNypY0ssBcFv FAIcuXlqQZzzm6PmPBBb DDNxAmwwqwBuMOo1jkIn XGNlbGxccGFyZFxpbnRi oKlkb4PbgqWrdVwfJCIo XHFsXHBsYWluXGYwXGZz ArTcgMshxD3qKpEjPvYy XIvgXJ9gYDTfA4oqtYZm FJVcZQMdR3vqZxVuuS4c aFxmMVxjZjJcZnMyMCAx TwR9OnAzZfHdtMvccY3o PcFwNmNsTZxmQD6qPHRb V0qyuIKsRSKsBQWcL1na PiVegX3dgLkgUOyxSgVr ZnMyMFxsdHJjaFxjZWxs HCgfoKByQSKhb9juNSIc KTNxxBLjVRF0uAQgxsRx dPuoiHultH6kMvAwEsLo NFxwbGFpblxmMVxmczIw TFrjzsfeMBEjEOvnH7qe MaPdUNYwtWskGHbpr9Mr XGYxXGZzMjBccGFyfQ== Addendum 1 (test code = d4iivTHeUPDpbYNjLPZm 37) CcqtlqPpVQSjlTKbO7Kp itubWVxrCR1bFM2edEsd cDRajUPbHBLoGjIaq7eh q773nOBcc9paZRXRHVxp KHTRWQe2d2rlGZYJsima fAx8dEnkU60ox9F6Cogy R47xqMQnAXP7AOBdYHFd oABkHHZkACA8BKLzbLWe C0ylXNXcAX1pmhovXVrs TUnjWVEglYS1PJQmyLZt H6AkPQZtORgdFHWxych0 VsFcVs5maLIhoKygNNcx YXJkXHBsYWluXGYxXGZz MjAgQXQgdGhlIHJlcXVl t8Ibr7SxqSthZEZiHNT6 xB1sKZScmDKpV7iygkU1 xFAzVe3rjA80lO7gXIG8 fBYkFZEkn0CkKYVtDKXm l1EgBMBjGF0jJLbycKNa rKVtcFXrMBU8QX0JLSGe BKWbi70yIoLltMWrXBTy tsYsaAYvSFRrQUF8bA2r ciBjZWxscyBhcmUgbmVn ZFNizvHfWw6dHNvqvcYc WMCkBWVfaSSiqJ29sc4c jHT9q4ItLV7rQ2TzGIVn MMn2x6xtWxZtqLIkEXKs ypIirHPnRKGhDNP9rK6b gcBgQZpyreUqljEtuT0k aXRpdmUgIGZvciBjbGVh hpZhPA6RYAEYUVPyAXD3 BKBsPFWzjYXtiM50xp4w lNW0g1IkXO8cJ3RcQZWk IPk1j7uaMsLckYIaGFOo nzMDSR7ZDHRmT8crioJr MjJDMywgRGFrbyBQaGFy cTB6VIKMi61rwT8iBSBL m5CmbEa2MHBCA62hXGLm X8NSAQopdHAxdNXxvgX5 aGFuIDFccGFyXHBhclxp XGJhRUVsg6E3BOqxQm0r lQW9vY6oZWYeXRW9YHQq aXMgYXNzYXkgaXMgbWFu fSGiC4Y6ioAfFKK1VKQn aWxlbnQgRGFrbyBhbmQg qMKdmiJpFR0jlo6wyH8h IUaqVT82oJ9QRX1KKNxl I9rfusNlJpZASo6yLRMe xZDquRDqUv7yhOGvRT3c LFQhxr9qeXfgPIQfbMNz IHBhcmFmZmluLWVtYmVk SPNbDWQrc8L9KGE9m1he RlPwaaINR7nnYR74UHAe g51gSKV5s2M8ZPodRKOb ZS7zBOBkuPilMTZlVdSd JQXgGLM7LTB6tO1sVTka hOevMODae2UeC3kpwKJo INI6NSGxGVRoPW78JoRw dDSsXOCaUFa8WUnjBDLz bZYucuQpYJPwrvO0h8Tp ZDBxBVSxg01qMM4cm05e VIvfN78jq3YhErJxy0Br m9JzD4hsxUPxjMkpjcTh fOJdKC1yJPSddsQryH1a mEMnt2PywAjzBYKzQ10u KvovGXGtxF5siKTfebEj t4YidrJjOUGBCdmktMYq V9PuH9AoOXNdZDQruqR0 sBXhrxFoGnWoDZ8rHWTI NHiaUYV3XGrhyP1sPUYr fYpdUKk2rTLlwUEymY24 WQBnqvCrvMJut4YhN3Az rGOkp2gxk8ovOtQpHI7g moQqr5SuFEZ4UNnkeS5t SE6kHHLlzGSbriLfkoJu sRc4FUr3lXNhn0B2jTUe KOAeLZScZOLey8KzUWhn gkJofmG5mMZbwZMpc8Sn LBDnIFLsbK95hU9xFM4v qULnWK0keTAzy3OqP5n3 y0AmDVQvvQQak7LnzB0u jurcm4FaWC85LKfsjEHg c6d6aSuxSTo2eQEwAXLf cLC1dHQwbT55QAzdzrAg NoOyNU8hILGeZHVgKDUn jrXpz5t7NZH6iQ5vqxLo ZWxscywgbXVsdGlwbGll ZCBieSAxMDAuIFRoZSBt OSfwnVJgDQOmk8KwGMsz FFZkLirkTJQuDXSzT4ZS PJVbBB0ccSInSXlhWXZk clxwYXJkXHBhcn0= Diagnosis (test code = w0xqcGQoMONqfQVjKJAo 34) ZynwhlDsYPAdsZHuE5Md kvupHInpDH6zOE8rnTcl sBLejWCzWLYkZdHxl8gh d245gNRco1jiQODKocpj dMt1hOmoV23pt3K2Hsce H3twISHeMLfoMHRoVBqj qRPmGUf9OFSsbXPjgmEl YuSlQASrzQSbtDW2ZWJz LA8yupygPQnbCZggLEVm liD2UYQgvGNtG5JiHGMq NA3fwyirLEM1GYmuPCLg NWF0YxTcEPUsx8Ahoyv2 MjBccGFyZFxwbGFpblxm czIwXGNmMSBPdXRzaWRl FYxfYhqHZcK7KfTaBIzf I7JgFOBtByuOA8xLUNOj YAYTXexzV96moSIggURp DK4iOHXdYgQ0InYrZcHv JyppWNUzE9IjHQOtaeic yEbzFTzffB21DhKtKwGf y3NaTKU1hqucIYFls4Pe gMuamZZnAXtsEmJ1LCrt fK75EhRbwQzdMeZ0ALBI PYTCI6gRCMPCV7VKTpXN GZHCVH1EJYUoTBXHFAPU PAFSQl5oLKrATESgTDKn X50vgGGidSbcUNDwkXEh XGxpMFxmaTBcbGluMCBN RFcvRkxaIFxwYXJ9 Comment (test code = v3yixDIlVOQptOJqBVBx 9835) XzgvrkUwJPCcqTLzD3Tx oitlDEokYC0vNC1csZit sBWpjMXeZHAfQcMke5wr x814xSAua1nsXMEVjeod sDc6wPkwZ34jc4C0Ulzv J99kvKVpHIG4RKHmJNOr vPSmZNDqBQQ8ZHTpoWYr K7jjTMNyDH6eyssrVYun BNmuBEQcmLP6ZTWftNBm R4DlREOzLAngNYYymhi3 ZaWuEt9npWRclOcaOFob YXJkXHBsYWluXGZzMjAg O5UntRs6fPCkKPihzKNn l3ixq9KuT3tlqYvzNSwd e2TrcL8iCCVwqiKtzw5h ZCBieSByZWZlcnJpbmcg fA6tkKm8pXWjf79se7hd zmC8yCO3FQVYZtLxnGlw bGlnaHRzIHRoZSBlcGl0 aGVsaWFsIGNlbGxzLCBh bmQgcDYzIGFuZCBwNDAg pEyzrOlyE9l1mqB4eKFq bXlvZXBpdGhlbGlhbCBj WGslre4zXPHqZHRrv9Jh cM3qa5g0IZXtGZIcjL87 su6atPXjy2P3dKZxrINk z6JxbI9nqNg0AFBzXfX0 uKmgMJSoKMZyqNHmQ9S8 fA0dBeVxyWMgkU== Biomarker Block(s) (test d0tcnBSlZBSmxYLsOBCt code = 9841) GhuvpsGjLBBphRPqD1Am rehnEGenFG8dIJ2vqEbi rGVitFYbSDJaQbRxc5ue o033dEIun3bbMOFKkpoj kJy7gVkmB59gf9Y6Jfwh C9siBNUuKOhwRUIvIOzi yGJsENe0FZTucAHazdUh LtMoMOTsyKJzfUE8MPPf CA4bypibFVibGYhgJCLa zqK0OZHdmWLyU0YsXKOr BM3fxldmOFE0WYywZHIb COM0RiGjHDHvy7Vavfr6 MjBccGFyZFxwbGFpblxm coXqAEP6nJ1fLJJil0Mz OiAgXGNmMSAyMjpJUzE4 NzBccGFyfQ== Disclaimer (test code = b5xtjKYyKZZpgVVmVwZq 9844) OCMxRJImr4psZXYklKBa ZzEwMzNcZnRuYmpcdWMx ZBNnVyQyx4ngu669rJMf z1yjGKBxCkK8rQNhARCm kUKsN891GBCaKQrlk6ve s2EfCWZdyNVrc2X3JUUH fztdrSb3mNvnZ42kp9Q5 EhndB3ofLBYwTRAgC8Du JH8jBKHbNat1GSM9SIW3 ZAInYTEjA7JoWL6iOKBv jQOiQIf0w1qzcYmpCMFi OGI0h2xgGBurwmPlUY7x pf5ckGl3t5vtixYjZIBc DGNfnUWUNKBtZ3CagZse Bl8rlDa1yCwdHcgfEYC5 Eda4OJ1kmq25iha0uYcj AQEmnvmqEeF2PJppZQXs mtygDDy9KMugIJHwrYN0 SGCfnVXqQ3IvVDRwID0v kle7UAH4MMvzIJPhFjT2 NDBcaGVhZGVyeTcyMFxm r060LOB3FpStHZ7fH1Iq i5M2nG5dpLSfUENtgPSl HiYvXJWsvh1olEGxLYjo q2WjTVG9ahE4gIAqqMSs NPBtNS84Wcjtf4HaUhze YMJ0CUBqwzRjd9Ooe8qk TcFavpHsK7zyI3NeUSXl XUKbUYPjFhHasrLbv9Df p1QnzVWklUk1b0rhPSMh WHWvtHkdy2qlQOS7UHHm J0S0yVFxv9gpZGnlJLLs sAC8teB2EUPoiMVaF8Te fF4hYPDhKK5tzwe3r4oq DAY1VGlfHTJxYrO9euT9 NDBcaGVhZGVyeTcyMFxm z896KZC2SmMnZTQdz4Um U0EixSesD03jqHohU10f DRRwySdccW8haWzuhW2j ZjBcZnMyNFxxbFxwbGFp cmxfVBvyzuK5WZrcazch BFKsGPadB1ywCtCaRZRx aQztBNxrv3ZrGUSkFDYt VipmwtT6NIPHz13qHIYd r1CxNUBjxR4ehOKgFFzo kcUgnLN5ZKwqlwNoFbQl ceHgQWYrxS3vIEGsIS6s JKOoopBtvc7sidPgGSVc URAgF3IhfgobiHanqiTw CVLbpb5mipKfKFF3CRTF QC5JQSHpVCJlq84wPFIa nNpneE1pmYLctpBkIQMr a5GtqS5iwVUALKDxZ8mv VD1vENtmi1WqpQEbmZLh bVH7PRDhw8BhRqWkvbUv xMIfiFSwS1JumYcyK6tt OBFnNSMnwnCxgUMgp1Xj CJAtpTC7cTMmFE9GCbEW u79jEZIiOLZRbrCoEKYk lZyegXS2xnL0pV0uRrKN ZiBhcHBsaWNhYmxlLCBj y468fb9bhxV1FGDsUFBt jvlus8FkJQNyNLZefN66 LIAwTOXsri2xxwrktGYg rtMsR6Ujbxz5uI7xIATx YWluXGYxXGZzMjJcbGFu ZzEwMzNcaGljaFxmMVxk EmRzFTOzLZxtD0djMzXr ZnMyMlxwYXJ9 [facility] 2022-11-27 23:08:26 Test Item Value Reference Range Interpretation Comments Materials Received (test h5qnlMWoCURqlLWlCcLw code = 9973) XLSkRIOct5zuDZQndCTy ZzEwMzNcZnRuYmpcdWMx THJpOlJcw7ejj732hDXi u7pfIVXjFjA8rDKfNAMq uGGgO056XJRoXLerw8yq b5StMRUccEHqx6Y1BOHN ftvsgHu3lHvfT50nw3K1 PyvsA8nfQHQkOHPsT7Mf BD6dSAYxBrd3QTF4IKH8 PAEkSIXbC4CqLF6mLUBy cBZiROt0i1vbnOllQRMj FSC7b3myDOvxdzQvBX6p wx6onYa4f8etqxRwXFUb FOZahFMNEVGtF8FsfLji Hq5nxYz0tAxqDbkhRMO8 Pfv8BJ0qyk76kgb6qMbe EEXjhxnxZdD9DFstSMSl rkgaTLn0XNjvKLZckXah MFxtYXJncjcyMFxtYXJn mTO5XXLobDWmS3PlBYRb STiaECYmear4TvLfXh4g cOTzbAhhBNbmd3ptq7ba xLRrAzi9ZWWbOaGgDjgv GFggn1Ibt4dfASGklv3h WLP5zOAjwRalv2K1fZJy SQTetBHpuhWsUIZavx50 aRVpzGQgqFTgpm2xcuZr rBSfwWNmLPE5qVBxpiFk PWHqdMNrMJWgQO6pdQJp ACYcpL8spczrGMYfWvHb ewshUKUsvUslhmOaWq5c eItoGEI6BPgtL6ufdP1j AhM1BFboF0bfaH9kOHj7 CQwggSR2TNNftG7sRO1t vxtzs1maDdHzOB1otavb i9lqUiDgKL7mhwo3q7eq LER7TMmkLUByHrV0naK4 NDBcaGVhZGVyeTcyMFxm r156OHY0HeZqYJDtx8Ov Q4LqyXybZ35edNssS44v GDStwFqdiM3nlMfjtN3u NcUuBoIwGJu1np44XTg9 xnoowWyjDRy3ybSzLPTi GSH8BFWdhGEyEMIkE6h2 saOpIUDaGER4XMKdmHIi YPHdW7d1sdXbHIV6SAy6 cnBhZGRmdDNcdHJwYWRk YjBcdHJwYWRkZmIzXHRy mBJqpZIdqVIygO5koJqk IOUmhKOhpC1kWRL3IMQj cmgzMjBcdHJoZHJcbHRy dq03WRDukgNojAAlrIll iBBdFIV3GILjDSYxTBZs BQK5TSTmFpYfueXyRTze bGJyZHJiXGJyZHJzXGJy LFJ3ZRMxUePjnmJjRVnz bGJyZHJsXGJyZHJzXGJy DJR6PANmWkKvjmFjQJrg bGJyZHJyXGJyZHJzXGJy LXV5KHIgEwQuyxOnCCjc bHBhZHQxMFxjbHBhZGZ0 C0xhuESvYVRmRGboiXFj WAZvG2cywBErGUpeKELp cGFkZmwzXGNscGFkYjBc B4gtBLVhQpOqN0SalNz9 MDAwXGNsdmVydGFsdFxj oXPbWBD3RDYpMRPwLIVj ORE0LHFhTkFgixXhXVjv bGJyZHJiXGJyZHJzXGJy XIX3MFUhHzUgbxCxIVov bGJyZHJsXGJyZHJzXGJy TKJ4DEClPkTchjMdWTjr bGJyZHJyXGJyZHJzXGJy PUN4IUWaKqHeszShSZon bHBhZHQxMFxjbHBhZGZ0 P3hyxXEiJDRwFYtzyNXl GEXjU0ayoGKzZZnvSDDz cGFkZmwzXGNscGFkYjBc Y8vrUFAmQdLyI0KmfIq1 NjAwXGNsdmVydGFsdFxj sUZvCBI7OHFsOARoDJBa UAC5FOZrHgKohhHuLIhf bGJyZHJiXGJyZHJzXGJy RSU0VSMuOtFvjdJeJPgq bGJyZHJsXGJyZHJzXGJy SMQ6BYOiQjSwinKeDXab bGJyZHJyXGJyZHJzXGJy OIL9JACvSnLustYlIPsa bHBhZHQxMFxjbHBhZGZ0 F1nfbBPmDREnBJiaoKFi YIVxN1ialWGgPUmzQCNf cGFkZmwzXGNscGFkYjBc G5pqOUJoIrSiT1KekCo8 KeFdXINrgdBksT03Pnsh k1BmKISvWSJ3IQeyOFfl bFxwbGFpblxmMVxmczIw MGtdubilGNTvEOkjW9xy QiPgMLXiaIroTNxzu8Sa XGYxXGNmMlxmczIwXGIg FPCcEDFnhV1tJmzcA2Mv eF8pBDmsGkltY4ufLRHb q2KfhR6bXOfeiSQnamug MVxmczIwXGxhbmcxMDMz QIkqJ1ecLcMsZWJkmVta LYovv1WsVRGnTMWlRowz huMnPZh3blPmNPAawDbn gCNbZCwszqZszZurg1Dh asUacQuuIIMaPKp2msWk cmzqvDn8dJNyrQbcZBSu qTnkzI5jMiRyRhAkCAbt bGFpblxmMVxmczIwXGxh ubkrGOEwBJwfP6emKoLd CKUoyGocNEnrh8JwARUb EHHbYhstqvMqNJGyT39h bGVjdGVkXHBsYWluXGYx XGZzMjBcbGFuZzEwMzNc aGljaFxmMVxkYmNoXGYx VBmvR6gzRvJmH0EyDGRa EfWflDExF2mkP9TluVha YXJkXGludGJsXHNzcGFy DAR8qWLywiEbhBHsxVIn NBLwPVhfFGQ6yOYriphi hOOxqulbQOtxhsX6ZBKb YWluXGYxXGZzMjBcbGFu ZzEwMzNcaGljaFxmMVxk LtCyOZUmEFnzA3fuBeEm H8ZuNMUcJyQfCbGLWDSe aXZlZFxwbGFpblxmMVxm czIwXGxhbmcxMDMzXGhp T9psAxPgJRFhzDndILzl d2AoMAUoKVIgGxtmphMm NGv6vgAbXOSssLxegR32 Gjxizp08RWTjg7ojHATy H4QrrFXeNVUaiHNqXJyv MDhcdHJwYWRkZmwzXHRy cGFkZHIxMDhcdHJwYWRk ZnIzXHRycGFkZHQwXHRy vGQcPMQ9F0v2aiWiHVNb RJz3aeEjEHPbWrUdrMJz WJU3SJv0IsromyJ1zDAl Z5u7GdggwsJxVDnrsVNm fu14FTIychEolXOkeDef dLOoXTK3NKXgOJUhMRWs KBK6VZSgHaUjsrZhRXnq bGJyZHJiXGJyZHJzXGJy UFH8EHRrCjVaudRvHLdt bGJyZHJsXGJyZHJzXGJy NRU7KJJgJyZqeaFfUCfp bGJyZHJyXGJyZHJzXGJy EWY9MYOkLxJqylTeSDev bHBhZHQxMFxjbHBhZGZ0 A9mtoQWzDWWbLWlnlLGf WUYlM9vdhSIeDPvrWOAp cGFkZmwzXGNscGFkYjBc Q2qcVMMuXuTbP9IewEg0 MDAwXGNsdmVydGFsdFxj hYFtRNM4TTFcNGCaEMIs DOD6UGQlZeIbgrZeFVpy bGJyZHJiXGJyZHJzXGJy PHR4AHYkHwXgcrYuROdq bGJyZHJsXGJyZHJzXGJy XEB5QTJlCqOtbgMwEAmi bGJyZHJyXGJyZHJzXGJy JDU9XXNmSoLjfeFqMZfh bHBhZHQxMFxjbHBhZGZ0 F7cimMHqAOTcBIedzXHj XOSrJ7egdAFcPOjsLOWh cGFkZmwzXGNscGFkYjBc G7dpIWYjAuMpP6EzfGd3 NjAwXGNsdmVydGFsdFxj zPIrDYF7IKKvKUPmSJLj OMZ3LGMoJzKpodIyJMcz bGJyZHJiXGJyZHJzXGJy MEB5IXQgMrGrvqXtUQey bGJyZHJsXGJyZHJzXGJy JVG5WAFzEiErwsDnEJyc bGJyZHJyXGJyZHJzXGJy IFK4NKPmTeJwobKoTKli bHBhZHQxMFxjbHBhZGZ0 M2jwqEBjYBTeYTupmJRp MIYtO2mrvPJjBWlzEPXl cGFkZmwzXGNscGFkYjBc E8bsXRCcPzZeQ9XoxKk7 GgCjYCPyzkRkvR47Hxot c6NvHKZcVSL6TXbiFLwy bFxwbGFpblxmMFxmczI0 XHBsYWluXGYxXGZzMjBc bGFuZzEwMzNcaGljaFxm LQulKjNhVPZuZEiqY7po TcTyP7PhKRSwRzYaFH4m JoP2YQPuLUeeKWZ5APGH SVXhWIKTM4JDJbedZHRU W2PfqFjgpG1uGfBiWgUv XSsrHT1lXFJgL5ecwVVh BUMuGSNgY8lhRzFzuU3q aFxmMVxjZjJcZnMyMFxs dHJjaFxjZWxsXHBhcmRc dL76Qkcuh4InXFIbWEO7 MFxzMFxxbFxwbGFpblxm WKglioU2BSYfUHfrNIMd XGZzMjBcbGFuZzEwMzNc aGljaFxmMVxkYmNoXGYx ELdkR8qvTdKzW6QrISCm MjAgMTIvMTYvMjAyMlxw bGFpblxmMVxmczIwXGxh qwbjRACyTCnnD6iqJnMm NNIvzMpxIZwji2XrOYHv OEEhOievhtIzAYl2fcVz XGNlbGxccGFyZFxpbnRi cQpkq8RwqvLdcKnrJNOv XHFsXHBsYWluXGYwXGZz PiFxePqkxT7dBnKiVhJp REjpNO7nXRAoD9urbERj DLPrEEYwM7ykNyFmfD7h aFxmMVxjZjJcZnMyMCAx NbB2InHpKoHetQazqF8l TqDdRxRkQXlkCJ7bDNCi I9bojZTuZYDoZINeA8dt AjVnrO3ctFzrQRrkGgOs ZnMyMFxsdHJjaFxjZWxs OFakdVVvEOZwd6hnTCUn YQWpaWMmDRM2oZXxwaXm pVpgsMwalX9kNtRdCpFu NFxwbGFpblxmMVxmczIw ICarilcfDXZdVNsqK0cc KfVyWFGgtGlxOHuwp1Xa XGYxXGZzMjBccGFyfQ== Addendum 1 (test code = u2fmkGGaJQNjoSWfNVZb 37) CyfzacYkGDEzzAGaI9Gg xprwYLpvOM4bRA9fuThw rTYcyRUzKVLaQwVaf4dl q566aXVbr0pzRIYTDKyz DDLWOTx5e1daPAATzoyh cKh5lAwtO87cv7S8Vyto S98xgEUaKBT9ISTcSHEm bYBqVUJuGBP4AUHkjACj O7jcLJEcBD5evcdoJYqc YNaxYSUtsZL7GCQbfUWs S4YlHTZbCFejYFErnsv8 GqTwSw1vrXXwrLlfDWil YXJkXHBsYWluXGYxXGZz MjAgQXQgdGhlIHJlcXVl y6Cnz0NjsRmgUVWgEYS1 iS6rOIPchCRsF0zcrrX6 nLHhNh2qmR62hK5lCAU3 xDNcZZPit1PnZRWhWCAr a6UcBOHrHL7wQBaivLGl aBOdkLBvHIU5QP2PDFEc ZWRbs25eGdJqwLRmVEKs hyMlrULtODCgYQX7gI7m ciBjZWxscyBhcmUgbmVn APZlovTrUc7rXPrfiqOy ULTnVWZbdJOlhW32gh6z oJD3x9PeEA7pM6NgCUGx JNf4y1duNsYufHYaYRNa hlGxsKHgAUWkLXH6oM7s pnNrITtytjIdqaYoqC3m aXRpdmUgIGZvciBjbGVh mgCbUW0VGMOXAJSfYZN7 XLUjXLZsoPUraV12gd5a sGS7y7ZcPY8mH5LyTYYa BPy5n3nnOvSqyPCsRKBc yjHFEY3MPROvL8jjlcUy MjJDMywgRGFrbyBQaGFy bWD3GGIWr66piR8bNXWL x0YalId3GWLCM59rUNNm H6CTVOmexUWcxLYbqaA8 aGFuIDFccGFyXHBhclxp STBbPXLyj1Q3THfxWo0c hGE1nK6kVCNuTCI4SJYu aXMgYXNzYXkgaXMgbWFu kPBjS5H5khInLBP4IQWt aWxlbnQgRGFrbyBhbmQg cBXccwBgBI2nbd3noR3d MGffQV65sB9FEJ9MANfd D1dzqoLpUgMAFr1eJKUp aXWkiKXrSy1huOXkBH6w ZKMbrj0crPdoBSCfwLCc IHBhcmFmZmluLWVtYmVk TKZoDHBsq5T7ZHV5m6dq IpHbrhNVI3kmZK78JZWs e14yLHD0k8S9OWhfWJMv UL1rGXKwxMkiHZCwVrZv EMWbRDK5GTJ3fI4iSMav mNctZCXuk0QpN0vmsNOh BOA8FEFyDZThDR37UlVa oBEmOCOpITl7TZvdJKUz yLPmzyWwCBKlshN9r4Nt BZJgXMCnf48zHZ1mc13i EGkwL62kl0BcKjRqq5Tx d7VmY5azyLOdqIrgydRt kSWeAW7tUYTuxbYglT7h fFKnj4MiiQfyGVPbL51l BavpTCOhdJ0wyVAxjmTh n4HznoYhOOKVAwubgJGn N3ZmE2YrKZSeSGRzdjW3 tGCafrRlKzZaXI9qBGBG YMpsUPI2BJpfvP4dSAHm eOeqIKu4qFOuwFYjpJ99 OVVkmuWckIGnn0IrW4Og uJLhi0gtv8ymNmHkZP6j jcIie5LzBUE4POkfcF8v HY3xGJOboSOqenLzutRp mSm9YBk9kAFrr4P4fWIx DRMjPACyLCZcn7KeMDwz lcNuteS4eXLziMLbg9Of PNRmZMReaP19wI2rTQ0a rXBbQI4unMNlo2RvL9b5 u3WyDRLtrXQec9RutO2k nvezv0NdWX07XKjfhKUr t8u5fOwyQKy8mRPaPZZw mNZ8bFJtqV65KQlqbtVk NxGcUU5oAYWeEAPmDBWd dgUon9z0TEE3nN2ojmVr ZWxscywgbXVsdGlwbGll ZCBieSAxMDAuIFRoZSBt PNjbrAGzSQFkm6QkWWpy TRQhLiduDNHkRBNjZ9IX HQSbKG9uoMQoPQstFLZq clxwYXJkXHBhcn0= Diagnosis (test code = x2unwBGlYVJtoXSmXWZt 34) IxynliQrEKPonYYqY4Zk qottYOzeJX5tQV3hqPyv wEZauOJaYMKvUqUxx1fo b022gQSwt7bdGYRIzbah eNo3xPekP78uq9T1Xldi R9zkGWBbGEcnSXDdHAqu cUCcYZw5SVIjfEUovqGi JsEeWPOwqACtnPU1YGTy KP3tpnokZKmcBMmrDQTx zbD7PKCteDKkH0VfICGr FX4sjlbcJYC7PEsgVMSg PAG0UrUkRJExg1Mtsck7 MjBccGFyZFxwbGFpblxm czIwXGNmMSBPdXRzaWRl OHpaJndDFsY7WzNdYYdu L1NuHJApMvjMI5dVLJCo LGGIXpptH50foBNkaLTv XV5xWGUiReP2KmNeTaQl BqjcLEYhE2EiIDKejhkr hQjmFGdgxM82GkQeJjDq r7AgZXW2tuotJOVvm8Cf dZjpqMQmPWqgPdT9IKdt rN04FmVpbVaoSuF4XRJW BWINR6iLBJTAN2WJNdPF COQBNA9LRMOxWGBHUZKA QOZDMm1wOAjLHTDgZWPw Z16odAApnUnaZUNgqNWk XGxpMFxmaTBcbGluMCBN RFcvRkxaIFxwYXJ9 Comment (test code = x8fkgZNvSEIkcHMuVRWh 9899) SnyxunBtALFzePBbJ6Ob mnnkZJndMJ8sCQ5cyFhm oGNxnEMgYDKfNmEqx3tw b866eYYkn2peERGEiiqa rFd7tVygJ99cm5J3Tnbb S58ahZJuDYA2YXXoNFJx vWFeSDBqZJX6ICBfrNKo Q0jsZKXmOR1thfbxOQih BPsgNFMazLL8MENmwRSc K7XhMJPpYZkjZEShxbs1 ObJaRd4tiNXmcXeoTUep YXJkXHBsYWluXGZzMjAg B6EecMk6eOIgEPoyrDXg m0mky3LaS4yscMtuECcd p1YmiU2kFMTxsnRirc3v ZCBieSByZWZlcnJpbmcg vU5ufCq2gXYsz59wv6gq wvF2qSN2GTOKMwXwxZvc bGlnaHRzIHRoZSBlcGl0 aGVsaWFsIGNlbGxzLCBh bmQgcDYzIGFuZCBwNDAg aLkefDazJ0u4xkS1xFDr bXlvZXBpdGhlbGlhbCBj EQvlld7sMKZeQUBlh5Tp oS2ee8i4XZMsJIHjeJ11 xn9flWHlm8V1eENywIQn s3YinF5axEg7FMFzXoR7 kJpjBQNwNILfiJXuT5P3 zG3uIxDcqDCsgS== Biomarker Block(s) (test d2grhFJgNINsqEQyXXKe code = 9841) TaembtBxAXWkrMVcG8Qo edfzPUubJI9uCG0huZhg zIIjfUQpOVKyJtLiy7al o531wOGqw9zqOGSChegy gSp8zTcjT97xt1Z1Qkwo O9ycMVHrUDayMDJcBXvz iQEiQFe8CTEsqLYzffUc FlBuFRCteVMveWW2SBDn DA4wionoNWiaYKczUEEz dfG2TLMioNUbK6YmVSUk SD8jpoxwIHR4VPxqMSMg ZDJ9MjIwBGVsj6Jqnce6 MjBccGFyZFxwbGFpblxm kmRzHHV2gB1xJSWlh7Ky OiAgXGNmMSAyMjpJUzE4 NzBccGFyfQ== Disclaimer (test code = w7hzwIGwJTSprPOxCeLa 9844) PHOrTATsd1mwYMIwuRLe ZzEwMzNcZnRuYmpcdWMx XBDgQvDtf9rpv054aQKg h4uzYBDuBoF4nNOnABUm cVOkM038BEDnHWgjk5jb d1NdYZVtsZBkl0T2BRZJ phedbHv8aTbvL34ti4L6 DsdeK5nwEIQrSXCmM9Fb RK1eFBQbYvj4DYR7LRZ1 KUDtPSEfX1PqIG7gHSCe rSFnEAh0n7xnoXkiIZNk URZ6r7obWDdmgaMcML7h ln5yiXh9a6ybkrNfYSJe XSKdaYCPSHAiJ3YaxAky Bw2xyUp1kDuuLdzwOQS9 Xzf3FN4rcn52zkv4nWyh RXMiwppmEeN8CUrvOLLz zoqvZDe8ZPwjCCZmrGH5 EPTddWCkT1WjBAFrBH3g wfi0RVR4CKeuFBGdAhA2 NDBcaGVhZGVyeTcyMFxm p601WPU0VwTlTD3yI8Rn g8J2zW7bsDXyZLTkaLFr IuBsBMYung3esNTeTHjg p8VzHNS3mfF9pNIoeHZh UBCnPP82Pcqgv8EjVbuy NFD7YXCveyPyn7Nab1bo MoTrjdJsO6cqG3ZiOBAe IFQaFFTyFyOtgsYaj3Jy k7LgeONteOy0k9arOSQh FVQxiYjzv8cpPAT3LMQc Y7T6bPZnm9orILblGSXp vGY8ofH2OTSglOCgM1Vg mJ2bCFLdND3gxmj2i4nq KMJ5INexCERjJmQ2njS3 NDBcaGVhZGVyeTcyMFxm j664QRT0YtNbQDEbk4Ho F1ZcfLisS30ouKidZ10c CCDurFvilX2waRiwcO5m ZjBcZnMyNFxxbFxwbGFp tbizABknxlV3MNwlpbnl BIPoHDiaZ4lcNiAiFEWh rZguNAdit7BrBRByZETf ZkxgqcW2CNZWh02rRPDz k8EgVGXqzU3gvMMyOBhj ktYvrOM0FJzizaJhGuIe shIdXLFwtK7mKZDfWK3h QOYlsaOjxf1drtDpYOFe YTCcS8UlbcigsVxixkQz VESsps9coyXnEOJ2YGEA UT8OQDSjFSVhk02jGWSz xDtqzV3cjRKbaxCqKCIu l2CfoS9rfZQPKUIaK8gb WL6bXZift9EjjSCmrSKh pBD7JLGls4LkRuFzyoWh fRZikPMyS6TvkUkqO7qr VFVfHJNwflMgkUYhz1Md UROirJT9lDQgYY5HHtYZ c11wXPMdHGYQfjRrFMIt iQpocMK2jgL2yJ4cOdXS ZiBhcHBsaWNhYmxlLCBj v754yc1tjsC4DQTtIIBf zrzmm4ZbJFAtCVMoqK14 ZOPeYSUvko2tfgfxrPDz pbMeO6Lgoda1gV9iWUEd YWluXGYxXGZzMjJcbGFu ZzEwMzNcaGljaFxmMVxk DuVgDPVcBKivE2bnBzTe ZnMyMlxwYXJ9 [facility] Interpretation 2022-11-27 23:08:26 Test Item Value Reference Range Interpretation Comments Materials Received (test e7vfgCCuOBSsdKLvVqBh code = 9973) VRYhKPLks7kdKDGgvTBq ZzEwMzNcZnRuYmpcdWMx KWIzXuAty0pmb644pIHq l3soPQPoRdM2kCDoAJYr yKFcZ405AOZjYPqdc1co m7QkUERywDLml6G4PXCG zapbfKo9sVfdJ48mp4M5 VucsN3caENJrEEEdI4Gq WM9fYQVoTpr5LNS6CTL4 EXQkYPNhS2HiIX5tYCYu jEFrSRm7c1sziMqkDQGw BAR4m7elYMwjdpQfBC3v uh3dvGj4u2omrrNkQUUd TYJvpXCQUCGsO3IbnGzo Eb7reCs2oKceRdidGTJ0 Wgw6CU6hic75pkf3nPxr XLEqnaofIxW1NZduFQIh bmpsWOe7HHscAFKnzBdg MFxtYXJncjcyMFxtYXJn iKB5WKIlzFZtQ3UgCRAa JQcuLPXjcnf9AsJfFt7c aTDbaZelHFouq7udm5cc yDZoDdi5FVJnPsZmDvph OIgob2Prk6laGRPrcc0u AQC5eKLapOldy4X4zNKg LIQapDOafhMtCOWove05 vVWioTRlaBIsax3uytBy iTEnjBRqSRE2vUGudqLc YVGstUGqUFEfFQ5axMUs GBDymA6gbedtAQGrLnLy ovktIVOgkEwzstJiHy0b hWxqDRX7VZlcD3knlY0q YwA0MNoiE8zzpW9bUIe7 MPjktCT0BBWnrL9mKN9t wkpzt4mnToDkWT5wmyvd o9qxZtWxRT2shuu1b6jj IPU6EOwdQJOzRiT7ymO4 NDBcaGVhZGVyeTcyMFxm a366ULV9GgRwVWGjy5Ww I0LzoAffC25wnAhkZ22r OXBvuOstqS5ptEnhdU8p GlUfOcYpUEu0yk73JQa9 lgofeXggZBb5sqLsFORn RFH0RKTzpWIuFULkU2x5 hcLgRRUbQCM1TJMbzFPu PNUpZ4e4ewQkPZN7YSk5 cnBhZGRmdDNcdHJwYWRk YjBcdHJwYWRkZmIzXHRy gXEgdIHjkYWxvS4nlAgm TPKljOEzeM5zWUK7HURo cmgzMjBcdHJoZHJcbHRy fq13AQZxkpQqmTEymXyw eGTjYMI3CNEyGKUzCWLh XWV7PVMmXdVlnsVaBNdb bGJyZHJiXGJyZHJzXGJy XXW2OIFsRoVtvuAjIJwg bGJyZHJsXGJyZHJzXGJy TFS2TDFsOpZvfqBsMEih bGJyZHJyXGJyZHJzXGJy TJW5GLDxTkAnqhGrCWue bHBhZHQxMFxjbHBhZGZ0 Q9sjbAZvWXXwCWipeXKp UNRfP1urbNVzVHvdELAf cGFkZmwzXGNscGFkYjBc H0gkSJNvLuFhY1MjgPh7 MDAwXGNsdmVydGFsdFxj hMYcEJY0MKBnLWVeHXZl GAI8LJSkDuAtzeSjDPyy bGJyZHJiXGJyZHJzXGJy USZ2HYVySfYwshAbPYfd bGJyZHJsXGJyZHJzXGJy RXV1JNSmMkVslzXdBVen bGJyZHJyXGJyZHJzXGJy PDZ8KFDpAdCntjDrAYur bHBhZHQxMFxjbHBhZGZ0 L3muuMYtLPFtSFwixOJr DISbM8qpoJBlAZkjVFPa cGFkZmwzXGNscGFkYjBc D3cqAMCxZcUfT2RaiLp9 NjAwXGNsdmVydGFsdFxj rISaWTR1SRWdPDGbTQEt XXP0GHOoDvUgzaOsATjl bGJyZHJiXGJyZHJzXGJy RLX6HPHxAvLgboLaKTrf bGJyZHJsXGJyZHJzXGJy VIC8KKKmVcRgctDrKVya bGJyZHJyXGJyZHJzXGJy ZSE4MIBkFmDtjcMzUQxd bHBhZHQxMFxjbHBhZGZ0 F2myrSZlIAQvTXwpzMYl DROdG7uvaOPzWDhnMSOt cGFkZmwzXGNscGFkYjBc A0zkDMYhRyEaK9UqbCl2 McGlNBFrndYlrS74Chtl s2ClYTOiCUS0DEkbZRaf bFxwbGFpblxmMVxmczIw GGhjyaegVYZdGRqeM9dl YpHfDWFpsGtdCOeyg7Sx XGYxXGNmMlxmczIwXGIg IHVzNBUvkC6xMlkjK7Th sR7zKMwaKvksA4tfRGGd e2DdhQ7eLMcedEKtcxfr MVxmczIwXGxhbmcxMDMz AWfvV9ncRoDhZFDcbAvf GFgqh4WpCJZkAEIcLtkw gnZsCUv3xcXiBWPntQld dEVfHFcqkeWvcRike9Tm caEndEspGUKaOHm0kbCk gyyxxQx4cBPzpJnqOJOz iLxkhY2cClHdLfHyXIxz bGFpblxmMVxmczIwXGxh nuhxLHIiWIedF6kuRlLx UDIyjNtqBBnon9GpUAQj HMAqSswqbnAbYOGtY05n bGVjdGVkXHBsYWluXGYx XGZzMjBcbGFuZzEwMzNc aGljaFxmMVxkYmNoXGYx CBacY9ggLsMwQ6ZnMYNk AwLhmIEeQ0wwP0XrfYat YXJkXGludGJsXHNzcGFy QOH9eVYbeaIchLZfzTQc QFNzPHczARN3oEBontum rCSzrfwlWApibqV4IUCx YWluXGYxXGZzMjBcbGFu ZzEwMzNcaGljaFxmMVxk BrReJGXeECwuY6alZaCc W9IiASFsAfYrUwIJFYPk aXZlZFxwbGFpblxmMVxm czIwXGxhbmcxMDMzXGhp P6dxVxDaWJSwnSfiBHuk d6CsWZViEXHmClxlzjZk EEm6ycDmUYXaoCvbrG84 Stqhql80RYHwa2euXMJu K7AakTVtNDYftMKgGKme MDhcdHJwYWRkZmwzXHRy cGFkZHIxMDhcdHJwYWRk ZnIzXHRycGFkZHQwXHRy pXXhLWZ5S0a5kpVxMHNr OPs8vnLgWIEbKlRjkYTw BLQ3MDc2RkcaidC5fDAy J0l3XugfheUrQAucgSHh ic63DDFxtxFupISsqTfs sCDlSDE6EBBmDPFyDQLs NEF5SMCuUsBcxgNfKIfq bGJyZHJiXGJyZHJzXGJy OEU5WNMlZqGddmMaFMah bGJyZHJsXGJyZHJzXGJy LIY5OVYhKnKwslSnJFvh bGJyZHJyXGJyZHJzXGJy NVS6PNApShMeplRtCBqw bHBhZHQxMFxjbHBhZGZ0 G3ucqXCzBUEsUHxutIMn JUJaY4ynqFViPGufXNNp cGFkZmwzXGNscGFkYjBc Y3yuQMGoUrZqZ5AinNs4 MDAwXGNsdmVydGFsdFxj zJKoFON0TCKkUDPiIVUa VPA5NONaGdCewpTzOPnk bGJyZHJiXGJyZHJzXGJy JTT7IZOkLiHlhaIzSZyl bGJyZHJsXGJyZHJzXGJy AZN0JCUtKaPqasQlFUqn bGJyZHJyXGJyZHJzXGJy EIJ6GVCdEgOaxdKaVDka bHBhZHQxMFxjbHBhZGZ0 K1yniZIhOFCyRAekzVFv CMDzL1imkEEnTFkkSCXc cGFkZmwzXGNscGFkYjBc U9hgLQUcGkAaR1OnrLe6 NjAwXGNsdmVydGFsdFxj oXXnGOP7EBYhSCUqKYCq VOL1YQXiZlFgcoBdIRmk bGJyZHJiXGJyZHJzXGJy IAE0XFTxQpRlquPoSFdy bGJyZHJsXGJyZHJzXGJy IPX4FZPgKnRvhdCaJIpv bGJyZHJyXGJyZHJzXGJy CHJ7TUMjLmXccaSjPGih bHBhZHQxMFxjbHBhZGZ0 M7vxfJRqOEVvRXocnQLk FODrL7bdhNXwMWinLZKo cGFkZmwzXGNscGFkYjBc C3qqJBZhTxQuI3ZbjTm1 BsDaGANxijAijC04Odlh a5PeAANfTHT6UHnjGVkp bFxwbGFpblxmMFxmczI0 XHBsYWluXGYxXGZzMjBc bGFuZzEwMzNcaGljaFxm WIauLwZtVCDzVOpvE3dk NyPjS9ZoIFFuCaBiCQ0o NpK5CSOhMOiiEYJ2UKNL ESWzWTWGX6UPBwesXDWU P7YhbWpciX9wVeKxLlRh ZQwiKL0zAKUtZ8zbvVAh YDKwTHVqQ2ekUrCwgX8l aFxmMVxjZjJcZnMyMFxs dHJjaFxjZWxsXHBhcmRc eF76Rkfnm1LqXHGnTXY3 MFxzMFxxbFxwbGFpblxm HDdkqbB5QYTwTAihDJKb XGZzMjBcbGFuZzEwMzNc aGljaFxmMVxkYmNoXGYx DLhuX4lwMsVsJ0UuKETf MjAgMTIvMTYvMjAyMlxw bGFpblxmMVxmczIwXGxh jxwfUAFwHEviE2gnMfRl PPMudKkwENjib6NlVCMq POKgXotnfwYjVSs2qbIn XGNlbGxccGFyZFxpbnRi jZqpq5EcloXyaFadEVGz XHFsXHBsYWluXGYwXGZz SgPeeFummU5zQqTjCgFp JBmuPB1dZHHzU6eosOSa HKAdUGRtW9hjRaAxiA2x aFxmMVxjZjJcZnMyMCAx KpJ3QyKzVqJwmZkegS4g AiXxKuVaDRjgZA8cHWHz X2ebbKMbDRYnIPOfC6ty HpYfbT2tjTohDZmsUvJr ZnMyMFxsdHJjaFxjZWxs EMpkeFMyGDTel2caHEQj CZTqrBIhOBL5gSOnlxJi aCjetUmgjF3bApHqVwSs NFxwbGFpblxmMVxmczIw KLczeqwjQMGrBScoH9mr QnImDCGlhWirOPtgw5Xf XGYxXGZzMjBccGFyfQ== Addendum 1 (test code = k3doyLLeMIDmwOIzAELk 37) MudpwqPjPGDvhEBoO6Wk vetgRLjxQU1aIE8qzRvp rUGceAHvEGJrQqQcm5wd b736gUIah0lbOHCLFOes PGVMKEf4d9gxEAKBuoxo qWc1mQhcR85nm4F5Zaat P56opGOnRYD1JKJmRJHj gIVmVRBeOKQ1EMJeqAZe W3xxDHQtFB4ysdnxOImp GXumYEEsuWY9QCLfkWOm X4UaUUGsSInvIUPxwcb1 DrWvCu4dsYZkuEgdGQwo YXJkXHBsYWluXGYxXGZz MjAgQXQgdGhlIHJlcXVl p2Fsl7RbjVvfSOKrDTX3 tX2hFJRdkEJmF5weksG2 yNUrSy3weO49gM1vFJX5 zAFtZDTbm1VvMQVkWTRy l5IwHLBaLA5zCDaveVWb oRRwhLJwFRV4LW3QAUDp FNXfh72bSaQgpXDpDPMt geAwzGAtGDGeWAM0jX8d ciBjZWxscyBhcmUgbmVn EZOcayUoWg5zWMqpwbXl YNVzTGWwxSEomQ85rh7n kXJ4h2OsQA0sD0JlAUVm QKl4x4wfFnPmmJWsTJVd cfJyvBZpBILdCNI4nM0t bvUlCNmunfQejxQhjZ3j aXRpdmUgIGZvciBjbGVh ijKfLO4BWRSJXNYsECY4 IWHyOQCokYTbdY26dt0m uZC8m8LbVX1bP8WtDQYi GYx8g1gzLvCyiGOeQVYl rpVATQ6ESTDzK1zflmVp MjJDMywgRGFrbyBQaGFy oRV1YQIUp17kwK5uFDNY w0JvvDt4ACIBH62yCIIf X0XNVOgifWPzwCMvmfI9 aGFuIDFccGFyXHBhclxp SYYnRIJhj4Y6TEqxHc0t uUQ8qB2rVGUkJWY2JCLh aXMgYXNzYXkgaXMgbWFu fBIzR4P5zePhCCX4ILMa aWxlbnQgRGFrbyBhbmQg qLFvpxMkEA6eic2biC1i OBocWQ79rB0SSS0DVPbs U8zgsvIoMwFAGh8vYVNm cBUriUJkWg9fkCPtUN3u IVBxnd1daChsUGMpqTRm IHBhcmFmZmluLWVtYmVk RFWmSECxp4G3YQH7t5nz XvRdhlSEV4umBP95PBBq h04hRHH3c5C6GNznVXYi KX7hZVSfpZlbXELjFnOr EMQrFFT0ZBW0nW5jBEcl pWtgRLYtx3XgK0bmiUVh BXQ9PNAnTTEaME48MrXa uJYaBEMiYUt9WImdVNGb yKCicxYsIUExccE2v6Km MAVcDXMwz20eDY0ms61c NFubW86vi9JvCnDmr9Gs t0TrN8lrmUJamQvmlhVr rWJaYE8yRIGtbfTdiG9j lLPvz9AagMvzBHYzJ60h PifyLOLqnN7ftLYstpRq s1FjcbUyVXYUGvkgcFEo S9RgV1TzVMWiQWMwfwO1 jHAcucOtQfRzBW7uOXXC TAujFJB1WLpgiE4dMMEa bMtpCNe2tGJsrUMbjP38 YKVfnpJyvLHwo0RoX7Uz sANim8jhb8ndBcVfGQ3a tuYzz6RxCCM7LZpdsB3y MD3pTJKcmUQuvfVqtxUt kJl3ENg5qBDpu5P8vFMo MOCcYAQsOOHpb2ZeGXnn lgCcdwO4kAQddDEef1Ua GUUnXLJwqD53nT2uRF2n uIEcLI3cdJTou9UeJ8l9 w5PcTQXhbJJoa6AtaC5s bbrby2OpYV99TCzgfICm k6i7vKktYJw9bKWyMWIy kDZ0lGTklA41GUzyowXu RrEfNI4qUVDrSGZiYERj oqQjf8y2QVJ7kN4plmVf ZWxscywgbXVsdGlwbGll ZCBieSAxMDAuIFRoZSBt ZVdoxASiAYZrk3JoNWic WYPcYobmBBChOXNuB0XZ WYEbQC8gpSCxTLuxEVBd clxwYXJkXHBhcn0= Diagnosis (test code = y6mpkFAhPYFhcYUqLPIa 34) UcfukzXiEWIgeFDsL7Fq lmqpPTifCJ4cHI9nwMxb rVGmoHUdALCgWzXmo0nh r652lWJbc1woVCCEhudb bPn7dAnoQ69di4H1Njja S6abNRTnYFqtFPLrYXay dGWkJIc5TQOuyDEqksUy JqVoWWHgsBUrcUX2TEUj QL5lcicbQQglQTyiROGz qjB3MYOkmTNqH0SfGOFy KN4fzqtrGTK9EOwsRNPx RVQ8SjFuXAWov6Oawni3 MjBccGFyZFxwbGFpblxm czIwXGNmMSBPdXRzaWRl QVdcAcqPMkA3YpQzUOhi S9WfQTMsMzsIB8pJJBZx TLQHLfklI17zrGJxhDPi IG8hAJCgEzW7FuAmFgDp RdifUBKwU7XlXWTdmszr mSdjQGpntT93NbWsAxAk i4QcWWN2fchkOOOzs4Gd gIbvmGRjYUvhChX0DQpe aX00IlNanKwqPbK4NUKN UYSTM2kLVKFJE9NMRrHB ZILGOC0ZHZJhMCLBWCIO AQFWGc1jUPsIPVHmRZLh L16ruMZrxQdzNZIvlSVi XGxpMFxmaTBcbGluMCBN RFcvRkxaIFxwYXJ9 Comment (test code = z4upqCUiZLRfgKSjGNAo 9835) EawfsqNzAVRnzEBuT3Li rdlmZVuiFU9uRY4fhOsc vZPqcEVuVCYbVmTgi7qh s862bCRvh5pzLNZFjxya bJn7mZjdR09jg7T9Arsm T66ecYWvRUL2UCNaRRRp sDPmPPJaVAR7KMBauNXj M1chLVEfNU9hebcaSEbf PIwsMBKhxHC9RSGndBUr X7BwRIKfKVswTZWisju1 GmWyDw9psSMlkXnqIXpa YXJkXHBsYWluXGZzMjAg A2VgfWq0wGMrJJcwqTAv e5obs6LaE5mbjOgoVCsv f0TpdO9gLFEvogCjid9k ZCBieSByZWZlcnJpbmcg aR1tfAr3kVTck30vg9cb vqW5mOX5JUGDNkNaxPxr bGlnaHRzIHRoZSBlcGl0 aGVsaWFsIGNlbGxzLCBh bmQgcDYzIGFuZCBwNDAg wLzwaPneL3d5ayH8oQZa bXlvZXBpdGhlbGlhbCBj AZkihg1eRGTdMVVdq2Ap tN8ii1p8FVIfHDNerW28 ij5sjQAta9F7eIHgzMGz q4EyoW1uiZs5GADfUwU5 aUpePJHtPKFkuBLyS0I3 dK8cYlAxjYAcoX== Biomarker Block(s) (test d5fszKCyHZEidBRbINEt code = 9841) PwzhzwOnODZisAIiG8Pc nptrCJmcKA1uDL5ybEie kZYrjYRkNDOwNrFgy9lc p166dYZui8gfWNHVxfzo fFm8rNzwK53oy7V0Gxpw P1rvTIDiSDfiMFVuFIji bMIkUDm7DRQhlSWdurEe CwCjKSPngEJrsSY3UZMk KU8repgaRAgrSMwqWYUb seJ6ECXgaJXxP9TbLVZz MB4lqxmhCVW4IOwdDHBw UZG0EgCxEGIao8Nyprh9 MjBccGFyZFxwbGFpblxm pvPqXOL3vN9dTSXss2Vj OiAgXGNmMSAyMjpJUzE4 NzBccGFyfQ== Disclaimer (test code = z3nhfMNeNJPnhVEmHsMe 9844) EIEyHJUjm3ouTFWxxLHv ZzEwMzNcZnRuYmpcdWMx MHMhDmVib4jpp706gWVg u6cmIPCnNiN1oYTtKISx jXPwO361CXAdZKkkv7ap w9DcVQLmyGOvy1O4BGKR hkeioJg5wSusT75cs7S7 XbpoZ6gsDVLtEIYeR2Mu GT4qCVEkTmd3KOJ2TQW7 LYOlEWFnP3NxOD1qSFCo iQAaJSp4g1bsqQcjBYTa BEZ0d6ncODddeaMnIF4s ee9saCh2k2haysRlUODs EPAkyHIYKNCjW1IubRpw Ww7ujIb7pIgiMmyeZXV4 Icd7NV2zhs08kph5cZxa NATdlfxxHuC4YSzuCQVd jaldGGx6XFxtUSAsbBX2 GXEguALtC8LmETJgBI6w fvg1SEF3DTcoUEBdCfH6 NDBcaGVhZGVyeTcyMFxm y610CYN6FpLzTJ9bO4Vg a1G5zN8uxZKzXUBkiRWk CoCdWUPzqg2ljAPnNTlj m5GwQTM2csL8tSEdxQXx UHElOA01Wgrrj9CwNplc CHS2UYOcyfFps3Zrq4jl JoYbsvAlS1zbQ3YkYZYd FAWmNAQxRxRqllMtr6Xx a1YxpDZfqCh7k8ojBCGx VFPhfSwmv6seCEL6SDQa R8D9pYJak8aaYCyiHZVp xPC1jpR4STHeqHArQ6Qe jU5cJPIxPK2bgwu0j1jz TAU0FNjpPNXnYwD5wuS9 NDBcaGVhZGVyeTcyMFxm b486CKI9CcHkAARki2Yg X9JjrZhsW45hjBamV65x JWLjkQtolU1ruYfhnU0z ZjBcZnMyNFxxbFxwbGFp aeqzHFmnluC1DUkeftcf XSQvXQssP7wwFdXwMBEi gEmbEHumx9IoMHJoSWRv TfhawhX6RRLBd03hJJSe o8UvWIHiyI1mgJWoCJfy dnBwcSR2MSotjuVrEyBq xdZfHRCtaY7uCJYaRT7r JAGxmwYshk9exrHxSWUz QNQaQ3JeqemisIbtpaZv BTVihe3oeyBsOKG6FDRX LO7ZMJCsNNEuh40zTJYc oMuhnT8ouPTafxNmBANz z9TbsX5emIQDKHNiF6gq ZI5eNJvtd5ZzqCLdgJQj nLG9RGOlq0JiQkEuqcDj vFOswWIvR0YcpFwhH9zx PLLgQQNngqTzbOJnh8Hk EACpcNF7iAKiHT7ZFcBG p92cYTXvIUJOsqVkEHVb gVtdmEW5ihD1fO1jEvLY ZiBhcHBsaWNhYmxlLCBj h273xn7ghyR3NMGfRPHf otwvd2EfNCPcUEAszB40 WYScNNDkkq4rhfjhsVIf ndToZ6Tauox4kW7pQFWh YWluXGYxXGZzMjJcbGFu ZzEwMzNcaGljaFxmMVxk WqVhIHZzYLonR4akLbYg ZnMyMlxwYXJ9 [facility] 2022-11-27 23:08:26 Test Item Value Reference Range Interpretation Comments Materials Received (test u9bymRRwSIVjfLRaKwRm code = 9973) BDWmNNLhx4tyZHTbsXXp ZzEwMzNcZnRuYmpcdWMx LFWzOlKqi1bgx346sKIg b4fnBWGlFvB7wHXdHESu gQXaD223CQWfYZhpv1ux g0LzIAOcjMXzl7T1DJYF yhihmGp8iVdqA97an2B5 NjlnX8atYOSqKSXuK7Yy NF8uPVSzFha8YHY9ZHM2 VNXnVTHmH9YiAM5jWCAj vYHwEYb3s7zjeUulSTUu CDE6f7vhNGfozcBjOE6l kw8geDb9d5obecBfAOEa PJZqnOLLGTDmK6GmzDki Lv3cfNs3uOkbDoahWXH4 Vgj5RM7oyp87gmc2kAit SEPaprtlVoW4VHgwZJKg rirkYNk6KEwhVUGjiYgi MFxtYXJncjcyMFxtYXJn dIR7JNFriCHrR3LtHUIh FSmmEWTsdxk6HnUtBs0j sLWayEltGVyoy2imf9dd wRIsXuo9XOZrKhTfEgul TFuxd8Hry5ejWRMjap1u FZL9cDQcwBvpd2Z3aBLk NLRqmKQeuxRiRWMhwe37 kZJlbQAlyDImpa2rleYw yFJcfJHhDDD1jCJmjySq RXPuzDOjYWEvZK2bqSAp HAEnmI6ebekaFNWuBwEy mmrsPRAnlQtfbbJlKv6l oLksICE8YNkpI5qxaA6w QjQ7BLqeJ7ihbB6cPEu5 UVvbcBX6PWKkiX8bTD3s yaswf7voCgMzPJ3pmwyq f2mqLuCxLO0yksq6j6gl GNS0XHqvLVRgOoK5ulR7 NDBcaGVhZGVyeTcyMFxm x732EBV9QsKlRMIrj0Rt G0VbaCskU61ybNckT86c MQEjbTeixZ0lzRbgvE1a BhNyVrKdYYr8ff78RDh4 soimpWytBQk4ydAaJFYp MSN6HANzmAMqDXQzD8w5 ytSiOYVjQSC5DUPirLLn PKLeO7d2nyRaTGU2IAw5 cnBhZGRmdDNcdHJwYWRk YjBcdHJwYWRkZmIzXHRy jXRrrBSkxHBjnT3vdRua BALtoINpsV6cEQJ8JYCo cmgzMjBcdHJoZHJcbHRy lf02LYNwltLkfRNozVli oKPlUXQ8QYLfJOOvYLAm YGT0IBUwBcCexlRxAUzw bGJyZHJiXGJyZHJzXGJy KZO8ZMHuXzCkadGpDKdx bGJyZHJsXGJyZHJzXGJy UYO3OWWwTzSfpbXkPBqn bGJyZHJyXGJyZHJzXGJy IHL7RYPrPrJyjvGhOTir bHBhZHQxMFxjbHBhZGZ0 J8qpkVBuSHRmSGbpaZKh ASFwH5kbzZRoSOetTBKa cGFkZmwzXGNscGFkYjBc K5mdHGKeShMeW7LnjOi5 MDAwXGNsdmVydGFsdFxj nGIuVFW2JAYvMEUbAQDx ASN8TTHzGzNsduHmEVif bGJyZHJiXGJyZHJzXGJy XQG1AUQxJfYakiCjCGhg bGJyZHJsXGJyZHJzXGJy WNO7TIAxOoMadoVaGSrn bGJyZHJyXGJyZHJzXGJy WMG6BMYdZdCynlHwNXgo bHBhZHQxMFxjbHBhZGZ0 R2fkzTJbQBNnXJzphLOz SBBeS2kkcTXeBFziALOv cGFkZmwzXGNscGFkYjBc Z7zmKTRnZzEvT6CrgZp3 NjAwXGNsdmVydGFsdFxj eWLgPUZ8JNVbWRTnGDAe ARP4IWOjJzAwktXbOWyf bGJyZHJiXGJyZHJzXGJy LOS6GBIsDaNbntYwLMfr bGJyZHJsXGJyZHJzXGJy ASW6AYFdRgTdkvJzHLxy bGJyZHJyXGJyZHJzXGJy GFE1FPKvSoOykmOzKMcc bHBhZHQxMFxjbHBhZGZ0 O6notGYqTYWxNRpxkKZs FRLsF6ekhSTgGGliCRWx cGFkZmwzXGNscGFkYjBc X8jrCMSfYjXcJ0AbwVm4 ZcPoAAZucnGnoT52Rdeb q4IeCROwMSU1CNepWGkp bFxwbGFpblxmMVxmczIw NSctxwmpRKNbZCcbB5qe XeOqEEZddGcfWJkja2Oj XGYxXGNmMlxmczIwXGIg FOApIPHjgR2mJrwrY8Lj bN8dCAwpYfteT9lyGZVo o1NdmT0wZIyqrICzputl MVxmczIwXGxhbmcxMDMz YDydP3wiFtBoDQBobSlf GYrtw4CeGOLhMTGeYekv ilFfBUl1qfZfHHVzbNzo fCAcRBjielDdnGjbo9Ay uhVvkPhiMBIlNRb1dwSr tmjlnGt9jJYydPkmCFTm uDnzbR8oGxWzRmCdHOdg bGFpblxmMVxmczIwXGxh qgojHIUdPYxgW5xcYaOq DOHmkWeoZVwny7AlAYMa EOEdLlqltlHkHQOjC12e bGVjdGVkXHBsYWluXGYx XGZzMjBcbGFuZzEwMzNc aGljaFxmMVxkYmNoXGYx NBtuI4emYcUqB3ZzVCSr HaApaTXqF8vvF6OabYmj YXJkXGludGJsXHNzcGFy ACV9yQUamcQezJDooQOi OKOxJDcmBQO1iDTxqqcf uMVlbsqiELipfqL5PFIz YWluXGYxXGZzMjBcbGFu ZzEwMzNcaGljaFxmMVxk AyDwNSEwKLukF8coMbEd J1OdWSCtBuFwAsUUULMw aXZlZFxwbGFpblxmMVxm czIwXGxhbmcxMDMzXGhp E5stZbJaGGGzjQyzRJic j7PaLQYuEUGpAsvbgzPp WRy8djGjMFSxpUmdaD77 Lumdec61TMOsv9pjCXZe F2RjvSJcDWUsnJCiYAwu MDhcdHJwYWRkZmwzXHRy cGFkZHIxMDhcdHJwYWRk ZnIzXHRycGFkZHQwXHRy vXVhRCR9E6t5vyNnJWQr GDn0fgZcXBRvOfZutWIq LTX4YRe4XeejxdO1iQAi H2l1WquzwtGrTRrleDDz fc90IVZyqhOjmZPgsAah rHOyWWU2SRQvXOZfPGXe XMQ4DFXeFlNcksQyMBlp bGJyZHJiXGJyZHJzXGJy BRC8TFEfJhIbybWhNAdm bGJyZHJsXGJyZHJzXGJy GWP1DWMvWlJvriTnHAao bGJyZHJyXGJyZHJzXGJy VIL7ZNYjMgUpvgKkABnc bHBhZHQxMFxjbHBhZGZ0 G7hktTWeXXLhLVgexIZd DOTsO3wcvQFwHBdbFMIl cGFkZmwzXGNscGFkYjBc G2gcUIBvDuFaP7ZhuRp7 MDAwXGNsdmVydGFsdFxj yBRjFNZ4EFLmAYZrRZQq DZL8WAUlMiSqzcBxNLmv bGJyZHJiXGJyZHJzXGJy TTZ5ITKgPtKccmBxLGob bGJyZHJsXGJyZHJzXGJy RHU0LWLyPwPlqdQyEVam bGJyZHJyXGJyZHJzXGJy GCR6GZYpOkHronPfWZxj bHBhZHQxMFxjbHBhZGZ0 U0jzdJDyMHXyNBeeiZFh BCGtX1exwXVxDAwpMSUr cGFkZmwzXGNscGFkYjBc K0kzDPIaZpKuL9GurQl4 NjAwXGNsdmVydGFsdFxj cHRhMIY4YCByHDKzOQQm TPV5WDQxQqHdnyRmIUvr bGJyZHJiXGJyZHJzXGJy JCH8FAUwSeHvziOoEDoy bGJyZHJsXGJyZHJzXGJy BII1TVFwWkYurxUbDAzv bGJyZHJyXGJyZHJzXGJy FPR0GJReYdMeoaGmEIge bHBhZHQxMFxjbHBhZGZ0 T9zblQBsNEPdHUrswNBk IGZxA1limWMdZQmuIFZg cGFkZmwzXGNscGFkYjBc X6jrQNAoUfCaG2FbxRg8 TlSeVBPifxEaoN62Prty g0BrDAVcVEB4UFtbXClv bFxwbGFpblxmMFxmczI0 XHBsYWluXGYxXGZzMjBc bGFuZzEwMzNcaGljaFxm WRkhLqFtABEsOFktO4fd KyBeK0XtUDJeQaJxDE3z FaT8QGUlSFztWUM8BYUD GYWrLUBBH0FNQbkqGLJR X6OtbEuoaN2uKmPqDhFb QPkeMG2vIGHtI2fvvPMe YPLlARIeY5lcGkAwjB7w aFxmMVxjZjJcZnMyMFxs dHJjaFxjZWxsXHBhcmRc bS10Fyfji5VjCGFhVMM9 MFxzMFxxbFxwbGFpblxm CMuyzhP0YIWpEBlzCRGv XGZzMjBcbGFuZzEwMzNc aGljaFxmMVxkYmNoXGYx GOreU4msWvGhR4NaQNOy MjAgMTIvMTYvMjAyMlxw bGFpblxmMVxmczIwXGxh hfizIZVgJYzoE4alMeFn PJNnhZhsOFrvi2OcZOMc DOQjMnccvsRaREf3xzUc XGNlbGxccGFyZFxpbnRi yFztp1BofuZuuShlHDZs XHFsXHBsYWluXGYwXGZz DkPvwVrbwU6pXlWrYcFj OTlmCY3xNGXwP0bhmUNz KKBjFXIgB4dxLqSrlO0x aFxmMVxjZjJcZnMyMCAx DmG7MpTcIqCxsTvllD2e XcHvBaNbJEswJW3mLIJw T5meiKRmBEGbNBLnO5ow RzCklO3mwJjuHJpqRgSd ZnMyMFxsdHJjaFxjZWxs GFzsjXIsWPWck0vvCARn CIWicLUjMGM8gSIwmmYk tCkyhHnmiF5iSiYfTvMw NFxwbGFpblxmMVxmczIw AVnzzttoHRJuXRflL6bg AvSfGIFkpBhwYZbbx2Vv XGYxXGZzMjBccGFyfQ== Addendum 1 (test code = v6elfNOcKENkqTLgIFPs 37) KkkzlwThRCRlkWDpO6Zz geglEBfgOY9lBL1zhNgx eLNbrTGdKDLgZuEnx4aw q156yDNdv9gbTJAZPQxm HFAPDFt9m9pwJEOHmuxg vLv4uIguL62ds0B1Zofz O97fuYKoPDI7WXXcJUJv wVSzXXIhYBJ4IJSudUAi I4abOHHvAL9haphpHDcq RNfrTHGvaZZ1GPYtrJJv Y1ZeUQAdJSiiAQPeftu2 VyXyAj6qlKYxpLruIJit YXJkXHBsYWluXGYxXGZz MjAgQXQgdGhlIHJlcXVl x4Ojb2HtxMucGURvKUB9 rS6rMERpnHTbE5qqtoR6 zVLwZz3xxR87zT5rZGF0 oNUqDHIgw1MhKKPhFGVr y6KkFANrMQ7gITudbEMd hYXikUYtHAS6LP8JWERw BSXmz98mRqAioXDgQLYt hwNxsEMhAOEaLAA5lN9a ciBjZWxscyBhcmUgbmVn ZXOoftGwQk5oCImvtoBc VHIhITUboWFsvJ99zu7t oQS2k9VpON7uQ5HbSTCp CXi3a7hrZdZwfUHrTUWq koPwxUHaNANbDFR4gF2r siIcTPqcwvFekhEfgX9h aXRpdmUgIGZvciBjbGVh puLcTN0ZTUINJZLiOER7 IENcBCTunCHsjS15dm8c nKM0b1YkGV2tV2EyVRHl UVv1x4lxBuOkiJAtCOKh moPGRW6EYXQfC3roisYc MjJDMywgRGFrbyBQaGFy zZI5LDZQl87zsJ2xBEEU s7NrhRr7EDQKN30cFNMi B2NNBJwoeCYhbYFymmS5 aGFuIDFccGFyXHBhclxp NCAyLTVva7C9YNleSd8n dHY0dL2lAOAzUEP3DGDb aXMgYXNzYXkgaXMgbWFu bCWnP2Z8luHgDBD0YXWr aWxlbnQgRGFrbyBhbmQg qPNfqjDpRA0dvq4rpB2k PDffIF59eV5XIC7NJApv W5aegyTsLqJDYr1bJCDx aIJvzEWpUe3fiIXcKG0i CHTsor1vrNctZMIzrDMl IHBhcmFmZmluLWVtYmVk IUWwJVFqz5A3ECD7r1wb NbOkdkECC3sfUH21OOGu n42hCAQ6s7Q3IPrtNYGa CR5hPPDglUrhLGXeUkFu QKKmBDB5NRA7kZ5jBYtr gJrlKVUjg4EkU1kocAQw ERE3GONnTCRpCE66UkGd uRYvSNNtYDn0IOfgIYZd jABahyZyKSPlneO0u3Aw ZRGmAHSax85zHL0ar80d HBvbF79gc3NdMcIji6Sz d3VpT5ocfDUymVxzgqTx jKToLJ4pJZCtevDmlI9a tTXhs4FmlGqlMMPjL71q VdhtIIGjcQ0nvCLsxcYp u4CkenFhBQETAppfiVRw Y0ZaI8InXFOaIJQqguD5 zKVqpqDcQkLeCV8uLTML ONueCKZ7NOowlV0uTYRi pFusVUh3tPYucREraW08 DSYxndBsaSNmw1SdK2Xp yMXfg9chp3syNpCtJR8r mbTks5QgWOL0CZrwzD9x VN5dUFTxtAOifxUyxkLb pTw3AOd0qFGnx4T6cGQg GJTdJTRuYRDel8EeTUzd agEdiqP2sLKumSPvs6Fc MVPkQJTjfC13aS6sSK0u mJXcCD1yyVVqo5NqR9i1 f4WqEEGxzFJun4QtcZ6f ivmmq2HvUZ19ZMbxqIXe b5e8tWzhZTb5rQDdEQKb mRA5dRCylT97YWopoyVg XgQrIE1uMSFaHXFwCLLh ttYtg3v6LHJ4qL6xqiBf ZWxscywgbXVsdGlwbGll ZCBieSAxMDAuIFRoZSBt CGxxaSWzESGgu3AnKZrh HMKdKxaiWYAwHMEzY0HM JRJtFA9hqBXlVHzrFHNx clxwYXJkXHBhcn0= Diagnosis (test code = p6ixmEOxEEDeeMWbIRAt 34) CkzcrxRuRUJnbEDmZ4Sg wkghZDpjMP6lCW3nzFey fFUihNWfCGSkExCai5zz h597oHMzo9jfBMGYrhyw bQf4uLqjI59ut1N9Iofa Z2ilYYXhZBdgRFGyXChn pWBiCCm5GVAmdBBniuOy FvKtNENhxXSqtJG2NSHj YE0diyliVVucXPxhEDPi mbQ0SMGnwDIkK0LbLBGi NU9eekogCJB0RPrlXLRq IJW8TuHaXKZvc9Ejnul5 MjBccGFyZFxwbGFpblxm czIwXGNmMSBPdXRzaWRl JFtqLnxOSkY5AqJvUSmj Y4MkLSIyWirAI3yZXNPk WBNYExozP95pnUVbmVBu YH4nFJMeNtR4BdJbDpHo InsxMLGbR2CuJSOskskb iZabWPyukT88PdBhOmCp d9FiZCB1ovjaUTHok4Mf bCrzxIPnOYysBxU7LVaf gC69RwNgiEilQtE3RQAR CHOXH2rWZHYQL9EVGxLW OTRUPX4NANDfETIMOYRE VLYDQn0gXDkIAHDtQXUs X34mxVImhKltTRBqwMRt XGxpMFxmaTBcbGluMCBN RFcvRkxaIFxwYXJ9 Comment (test code = z7kwhVGnBRQitDSkZZYr 9842) PepvzvRiBXFicJPjB6Mh frviFNlzZC2zJW6fzMyj aDTzlQGsWBMtMhDiy2ev v020xOUqs0ffDVTGlqci fMl3aOysC45mh9P8Aczx H30cnXXjOWU1GRAjPETm wMStCIMpWMG3BFKnrUWe N6liZSVrCH5kpemxFNol NFpgTQTxfUD8IIQvoMZy G9TzISBwBOwhPYXaybf2 WkYlWv7czSWkvXemZDbi YXJkXHBsYWluXGZzMjAg O5YyqQn8gBKlSApjrCPi k8gez7IyU9xtjYerSKyh o8HisP5fTPFpifArzz8b ZCBieSByZWZlcnJpbmcg mJ2zjNw7tZBkq70cs9zs uvN7hUQ1IAKKKkDotWzq bGlnaHRzIHRoZSBlcGl0 aGVsaWFsIGNlbGxzLCBh bmQgcDYzIGFuZCBwNDAg yNmxuLmhB4o3wyR3qDMw bXlvZXBpdGhlbGlhbCBj SHaxyq9vLJBwNPQiz9Xc sW2hj4s0HTGjTDWqsW85 jj8kfENau4O2dKQjiVZa m6KbrS0aqLe3GRIzEhK9 vSaqNCPuIBBsvMUaY4W5 dI5fMbQvyACkgO== Biomarker Block(s) (test s0xojDMpYOEoiBFeUQLn code = 9841) OdsmqrDzFIIsbBMaM5By rxgjJJreEU7gJE6kcEou jLRpeEGjEHVdEhMxy4mr h435jONym5thGOGUmror qBv6gEsnD04kz3U7Ojlb Y3ucHYAkEHwuTXZpVVok hFIfQHr8QKThnDMnsyJx WqQsKJExgRTwiMM8BWOo PV6xgubbBWllQDhaKZFc iuL3DVGinXDkW7TaJQVo TC8tnkejFGB0ZPiwVOSg YWU7RiCjULJaj9Mobek8 MjBccGFyZFxwbGFpblxm djKfVFW6jL5pFMDty8Jm OiAgXGNmMSAyMjpJUzE4 NzBccGFyfQ== Disclaimer (test code = w4kgdUFvTWTjvXWnOvDd [id number]) RFXpUHIgq7rmEDMvwIIi ZzEwMzNcZnRuYmpcdWMx MXUtYqSvm9wlp233sZTv i0oiQVCfJfV6cIJwFSXi xGGrH723HTQcEJiso4fn v3KbLDUazJOtb3R4GBON irratZv1aEyzC96oa9Q9 HciqD3wySYPpVAMqN7Ud HT6tYSFdLyn1OYN1YCU5 KLTaXCLrC6NmDJ1sMISg nJJhMKx5e3gomVbiMANh EQE2d2deIHvyrwSyQT7k sy5gxCq0o2xxcdYiIZDj UUJqjKRNBYBkU6RkmCdb Sj8niWn2yAwaOmfyHLA2 Hmm9XQ0ltr24wsn2zCrb UXUtlxkuYoC6FOfpQQXi efrjVBk5UEonMGKwgBV4 ZNCrbNRmJ3FyRSUlCB7e wqy7TRJ3GTnzZELtMlZ5 NDBcaGVhZGVyeTcyMFxm e335UMM5HpAuFZ5rZ7Im i2R8bF5tyQPjSZOvkGHj ClJwOGDikj1vsKVnLDew q2XhNCY9ziG1aJOvqFRk TJJoXH35Bsmew2MzXrtv RMD2XKZbkyKll0Rft4ax OeCpmsZrP4mkK6KbZNKl NFEyQZRkCbPmhsJqr7Wi s5CnrVJwlKd3j0gkNFQe KRSmlItfn5gpWNV5VSKk F8D5jHUvg2pcHCdjRZJa oCV3xsO0OWPmlLNfV8Eb aY4iRMJmST1xuxe6s9ff XWH3ROizXPLgGiV7wiX6 NDBcaGVhZGVyeTcyMFxm t241TPC8CnYqGVBca7Wx W3WmkAprI63npHjrK51q IVVnhZizkC9jzPhagW2q ZjBcZnMyNFxxbFxwbGFp gftqVIcdhqY4PPutyihk EFGsOMutA6mwUdFmRVGw gRtgWHowz6IkOAXfSWTd VaktxuO5MFQNy96iKAAk u7LpAFKnbL8qbUHgRIlm ngZqaYS5ALtltoXrKsFb ojPxNKPlvN1pRIDvXS9k BZXphaGwuj1hkuAsVRFq RSSaV4PxudibwOkezwWb FYBclv4ywfJeFCA2FOTQ VS2DDJOgTXYon71kZIMn gLexcO3adXXmycNqVGYx d4OoyF2ujRFPQUHkR7nz YX4oWEoaf7XllJJsxZGc uHO4RPVab3QmRgSvdkQy mZRluKPyC4AvsTwpA4mx HJMhPTDyswGvkMIpe1Aj MFDvmNC0qSFqDU2ZNhXK z95tIFBkUEYYwfWcUIVi wXeyfRW5xuC2xM9vFeKY ZiBhcHBsaWNhYmxlLCBj y105zi6qtaC4IKVmXZPd dgtze1FtNZVoVOFrsE20 JAAtWRPzjz4ceyukiEUi liCiI5Drswm2kE3uTZXg YWluXGYxXGZzMjJcbGFu ZzEwMzNcaGljaFxmMVxk GaMeHVOiBFgeC6dtOqEk ZnMyMlxwYXJ9 [facility] [place] [place] [facility] 2022-11-27 23:08:26 Test Item Value Reference Range Interpretation Comments Materials Received (test i0fmkCFkBMIgpUByGxMk code = 9973) SHDjHYIvs6loSGDuaVLq ZzEwMzNcZnRuYmpcdWMx JDZbLxXbb8wbv461gYJy f7mzSUVrQmU0wFFmMPGo eITnX493KMEnRIebt9li y0JmNYPcyJJdf6V8RSEC mtnfwIo6fTfbX06qc0J5 EbmcU4mrOHArLLEgD1Bm SP6nVYPoVtg8PLJ5THR0 WCUmTSQfL9KjOK2yGTVx lXUxTEj9x9iolCiaSHAz JII2z9zxNFvawmGtRO3d oq8huCw1b3ktfiIsTDBs OTCvsYBJSXOyJ9NxtZjl He3vzOq9xNqkJhgbCDT7 Zdy5XG2ijw62kgb8sYnv WIIpxxyrYxP3SJelTJHi xbhzUSr6ANchTDMcmFvt MFxtYXJncjcyMFxtYXJn ySI0OEThtHMiW4VxTMAi RGqbCILuvwa6LkUfHm7b xRYeuEysKZkmz1oyb0bo eYTdOux3KKXoJtEgMwbr JKxvf3Yyq8sfUCQogn6m OPF1vLGcyYmlt9M0zETe DYNldJOctrFbXKPfiw52 oDNneKSujBPjdl4yzxBr vNKfzKXaEZL0aQVxvlYs QYQbhXSjSERyGP4urBJk ZWVpaS9rikafECRfYeGf dehkRVObhYuujjIlMf1e wNbiKKL8NEpnM1fmzX0k MrK4STklU1zgyR9pPVs0 OGyxsJO7PMJbiI5qZW3x cpjfe6lxDxKnDU3dyojr m8ubKsShFE7atai2m0ih SQB3STfcDFSqSkM9bkO9 NDBcaGVhZGVyeTcyMFxm j645PWM2QmQsPRRyb6Rp E0UmsLhvU38lzAvdC03f SQMaxDotfQ5zzGaroX5k LsHuPdAwMCz3ey76GVd2 xmjxzUnxIHt6kzKfXLOk JCS8HVYijIVmBVFcC9u2 tnKbRRPgVXV2BVGxgOTq PBJgC5t8wmYwLDF6HAb2 cnBhZGRmdDNcdHJwYWRk YjBcdHJwYWRkZmIzXHRy lJRfePHfjAMygN6lvRln QHTlhOGmrZ5vHXO5UUKt cmgzMjBcdHJoZHJcbHRy hf46AVEevvGlvCXexSuh iXZiVJU7GWKuQLVdTTWi NOY2UTJfDbNjjwWmTBmt bGJyZHJiXGJyZHJzXGJy QJV0DFThEwOqavRmOJaj bGJyZHJsXGJyZHJzXGJy ULH7RITmAmVcioAxJGyz bGJyZHJyXGJyZHJzXGJy NWV4FXGyHqNubzYtERjp bHBhZHQxMFxjbHBhZGZ0 E3artMLiKMIlLUnpiOHr WMNbQ8lsbSZoDBxnLNIk cGFkZmwzXGNscGFkYjBc J1qfSFZaBvUuZ5RatBw5 MDAwXGNsdmVydGFsdFxj iWDxNLX8JYDlPBFcOGOb PKI6DNGaMnYxpaRjTLqm bGJyZHJiXGJyZHJzXGJy GSR6RCRlRqLksmGdOJfj bGJyZHJsXGJyZHJzXGJy KEA7WPNwBzLzphElNXtm bGJyZHJyXGJyZHJzXGJy OFB6NNDdBiHvzxRjSDyf bHBhZHQxMFxjbHBhZGZ0 L5jthHTvGCYgXAetqCOe IGOjJ3rjnKYlFTnlHARu cGFkZmwzXGNscGFkYjBc I4ikOKJoNkEgV8RwqAo9 NjAwXGNsdmVydGFsdFxj aVRaAPX4TPNkTNHrWZGu YNT7YERvGqHaatDdVVdu bGJyZHJiXGJyZHJzXGJy FSF0HZBpPxPkofIbDLgz bGJyZHJsXGJyZHJzXGJy LJU8TSOxYdDgntIhFSnb bGJyZHJyXGJyZHJzXGJy OYV6IMJeRnEajdHaAYrn bHBhZHQxMFxjbHBhZGZ0 N7ubpPVjTPOzOFlkhNLk YNWtT2vvuBVoUIzdUZXa cGFkZmwzXGNscGFkYjBc Y9bzSUMvPxKyT5UvoNm4 CfXgLUWuwrEzbT80Vmaq h6OhIGBcVUJ8STbnFZfg bFxwbGFpblxmMVxmczIw IPupvqujDMUaHXdaR8aw XoSiLJDeoMuuSNipt6Ds XGYxXGNmMlxmczIwXGIg DWWpIZOvlV0yYecoO8Gg rO0jTNuzJxggZ7yaMBEk r1TbyC0fPNpczMOxgopc MVxmczIwXGxhbmcxMDMz AWldM5idVkGeANZozOnt FFztb0IxGDXfCBDsHmdy tcUyOSv0cuAuWTVwlUem pVUaFRmwzuNymTlqd3Zj dmNndUycRQHbEUd1huSs dcacpPt0oCBryYioXYYc jFtvyT0jFkJtLnRpBSsd bGFpblxmMVxmczIwXGxh llbcAVMjIXgmO3mxPxMa XEBqjPxeGPzfz0XpVYIm RFUlDjirekXgENPuZ91m bGVjdGVkXHBsYWluXGYx XGZzMjBcbGFuZzEwMzNc aGljaFxmMVxkYmNoXGYx HVbeI5lrHgJrQ9VmAFKe HiWbtWCaV3orS7PonNvu YXJkXGludGJsXHNzcGFy VDI7qCZoqzRkgKXnxWAc QQNpLVdcJIL1hQAerndp bOBkqedzIRkqgvU0MVEc YWluXGYxXGZzMjBcbGFu ZzEwMzNcaGljaFxmMVxk KeCxPFUwFOmlG5ilZqCt E0NuUIBeGbLxBoEHJLWb aXZlZFxwbGFpblxmMVxm czIwXGxhbmcxMDMzXGhp T4ddVeDaKZXhsCmySLaq k7ZwGIGlMBGhIwcxbgGc PYh5tjJzQPSapZkitO98 Syarvb52OVBmp8zuVYOg H0YhgUDjTSJvdVVxPJzs MDhcdHJwYWRkZmwzXHRy cGFkZHIxMDhcdHJwYWRk ZnIzXHRycGFkZHQwXHRy iXMiZYZ6G3e6aqFbTJDi XMz0vkJoLCHaTfVfwQEz TIJ1USr2XuyhshZ4uJXd A2l2OsyeukUlBQjgaJNf mw53PXMfuqIviOSkkBta nOTiXZM8FAWmFGNwUWWb ODS1IKGjRiRnvvJiHGlm bGJyZHJiXGJyZHJzXGJy SZF9DYShEiJlacGiRNcv bGJyZHJsXGJyZHJzXGJy DQM6FIBlKxArjoXfFZey bGJyZHJyXGJyZHJzXGJy JMF2WLCwQmBzmiGoPZox bHBhZHQxMFxjbHBhZGZ0 Q1aueJRaBKJpEVtmzIGi PXDtN0pjtLStVHkvSUUy cGFkZmwzXGNscGFkYjBc Q1feJABgIfBeF4FmvWt5 MDAwXGNsdmVydGFsdFxj gVKwOCJ0DUCoDOJrLREe SIR1MFOwHkDrodPyOVjn bGJyZHJiXGJyZHJzXGJy VTX9ZUHsOsUuxyGnWEhx bGJyZHJsXGJyZHJzXGJy OQH1SUBgFoWgdlSnZAdw bGJyZHJyXGJyZHJzXGJy YSF3DJBiGzHsoeDgDDvu bHBhZHQxMFxjbHBhZGZ0 A5uyrQHeMKLhFLsguHOv MHTsX7tmpWHcVOiuYWKc cGFkZmwzXGNscGFkYjBc J9wxLHFyDaEmJ0WdeUc7 NjAwXGNsdmVydGFsdFxj oJFkNJJ3IGMgYBWqKCAh QGF6EHPeIhOnpkDyCAkb bGJyZHJiXGJyZHJzXGJy ARA2TITaVwDfzoSnRGvu bGJyZHJsXGJyZHJzXGJy YSH9IFWkWoAlxxXuEPpe bGJyZHJyXGJyZHJzXGJy EXE9ZDDuFmTflhOkKAep bHBhZHQxMFxjbHBhZGZ0 I9jriNMnHBExDPljkVWy HFGwY2qhzSVjOFnwMMGl cGFkZmwzXGNscGFkYjBc M5ucGIPjEpXmF4JovZq5 LiZoPNCpzvFajE93Krif v9ViXNEzZXO4BOhwOGyh bFxwbGFpblxmMFxmczI0 XHBsYWluXGYxXGZzMjBc bGFuZzEwMzNcaGljaFxm LVyhQdTqKRJaCWbgK5nn DwOcH0VkRNAaOlAyTT4t VzB0RIScSEuhXZL0PBZK HMEtKDAKJ9JVWrlnFYTX G8OjhDqeeC7iOoLiYmRi TAflGB6eTPRvW7jubWWo JRLbFKStW5wrCvIidQ6g aFxmMVxjZjJcZnMyMFxs dHJjaFxjZWxsXHBhcmRc uM47Cpdju1HdYVNaFID9 MFxzMFxxbFxwbGFpblxm PYlmatG7CHNyBOkwJDGg XGZzMjBcbGFuZzEwMzNc aGljaFxmMVxkYmNoXGYx XYgsV3yoMbKaW3IcGVJm MjAgMTIvMTYvMjAyMlxw bGFpblxmMVxmczIwXGxh iiqcFWJaJRyjS5uwYiGo EOCsdHmbVRwyh2KtYHZh BOGmAyuzdwZwUMb9bpSp XGNlbGxccGFyZFxpbnRi iJwxs3RrxsTiiCsfLFQt XHFsXHBsYWluXGYwXGZz HcLzpEwyqT9vEeTyLqAz OEspTY2aDWXrI6hmaQNo SGFrCTIvE7ybQfFekG6i aFxmMVxjZjJcZnMyMCAx BdO2BaElUoHmoIownV1a VuIeAuDfUVesOG5sTOTx Q0dyjKYqAWSrBWGoA0ra RjXpsM9reUbfIOajZkKf ZnMyMFxsdHJjaFxjZWxs MYxokXJgZACsm1hbRIVy OQIxtQFvIFI1lBIbgjKv pZfofImlrP4bLpAtIiOq NFxwbGFpblxmMVxmczIw EYrbnmcuIGGoKMgnQ4pr WsIxZJLfiDgoYQaxk2Bg XGYxXGZzMjBccGFyfQ== Addendum 1 (test code = r1okwMBuXCBboHWkZSMk 37) EuivrnTfFBLgvUSuP2Jy auulJJbmDX3dQC1pqBut nGOfdRYhGFGwYqDdr2wc i747jHSao5poHBIOXDds FAEODHe8t3trTQRXbmuq aZn7pVypG07xn7D2Aupa D64qvBOsVBS9ALAtWSWa zFCvYWOuBEQ4WEArfURk U9rzEIFrRP9mgizjCOkj YSgvPHLgdJN0KDZawQNb P1MiKHGvCFlqRFOtnck4 DjRvFm3rxHBayOcvYMet YXJkXHBsYWluXGYxXGZz MjAgQXQgdGhlIHJlcXVl k1Gos8GdjSngEJKqNBR3 cC3lYOVahXBiH7pgmzL2 pBMgRe9cfB21dM8rLPY7 sAKbMQOiu3ZlWQAgTYXy q8HvTZQcOM1cLNzoyQTn bYOpfKUbHWB9UF1CMMWt PAWnv06sBcRqrQXrGIQz vsFdrQMvUTToWAI5bC2e ciBjZWxscyBhcmUgbmVn EWNmmcKtHn8lPEpxcrGy DTPaPRFxyTApsS23mz0s kUO0a5VyVK3xZ9CkHLJh LSd6t6npZhLrfVXaSZWn loJbrJCsVQCkIDM1uM5l apWxVSoiukIsjeIimX4s aXRpdmUgIGZvciBjbGVh udNaEH9WVBHRGAYsFUY2 POSwWBRyuRMcyN51ra7x kEX0y4JwRU3nO0QkVDWq ECe2y2uzBjRhbTZpBVXu edFVSJ0TBKHbD9izlyGz MjJDMywgRGFrbyBQaGFy hYW4ZQMAs55ijA0uBTAS o4XwxOc5LEJPO09eTDRo R0WXPIbdoFIoqKMqeaM8 aGFuIDFccGFyXHBhclxp DIPlROHoq8E0WLyiZi6y tGJ5gT3fXPBxWMU5QGNf aXMgYXNzYXkgaXMgbWFu gIWpN6B6ojErFQR5KWWk aWxlbnQgRGFrbyBhbmQg eZBfxpSyMX9jtz9pgD2u QMsuUI00pL0ZST1QBAzx F2iykeFtSqSNIx2jIHBj qBVezJXyCr2lnPOqDH1g PFJmjk9efDsnTUBomSOp IHBhcmFmZmluLWVtYmVk FNQaOBLny6L5QWN0b3qb AcQjhdFXN5nyGB29BWKh d34jLPJ1b4N2CWyfICVa LC0hRZNcwYgpIJPmFeLc MXAxXBX2XVT4tK0wMRfv pNmnYOVfg8YeE4bgcLYi GUI4VVOtRPAeIF75FuZd xTYjHLNpIVv2VOscPVQi gIKrhtEyTASyjqO6g8Xp PVZgQCTun49mIZ3ud26l MSabZ15eb3QiSmAwl2Go q9ElN8yejEWbeQkmjaZm mWObDL1iLQWvheMrpJ1k bRIke3PcaUtpBDGpF40j VhfuRBAzjH3ncHRwcsWm d9ZaflGkQZUPAxoneAVb A9ZyV9SfKMJmLQNwsbC9 mAUuchGpGvMuIW5oYCXB WKlrHHJ5CAeglY3tNVZg kUtiIJx2qIUbzUYqrB63 BQGzerSeeFLsn8YjB6Jz zAPly0uho8lnAqUgMC0c qwBte2IaKDA2FHhvxF1d BL6rMIHvwAZlsfVjqzLb zHz0TGw4pWFut4H0iKLj ZOMgYPXxXHSpb2EbELrz ttFfmiA3tXYbcXBzk6Qr KOSiRCXvhE87tM2kOE1r pGWqBD4qnTLkv8IiY6d5 x7HuLZAkiEMrn1RvrI0e njegz7IzPB87BLidrEBi c7r0nTllAKb8wBBeSLGn kGV8nKWimW55OPdqldHo PjIsRB0vVTSzAAQdQAMd zgAtl1p5BQF2iU3lywNc ZWxscywgbXVsdGlwbGll ZCBieSAxMDAuIFRoZSBt XXsofYRiRHJsk3SaVXep HIBnIxvjOZFwBTWyT5CO TSXqXY6toAReRSwcUZFl clxwYXJkXHBhcn0= Diagnosis (test code = j7uhoCXkOOAtsJQlNJMl 34) ZxekcqOeGKJvfIMnZ4Ql ewusQNoeOX4bNX3thJjf bXCzgRIxSBRfIbHkb4bi d001bFGva1cxQTGBybyx xWi3tJyyN12uc3J1Wcjl J1mpWFCtJAvdLCKgOSuk mXBmBDz0PHBdjQFxowSt BoAzMZZqtVRnsJH3LJDk NT6fwarpYRshHWpkAQIn qfM1XWWuvUSpF6OmWSZe YA2fpcmhAUW4VSkxKFUt KOA4HcKdJANjc0Jaglj8 MjBccGFyZFxwbGFpblxm czIwXGNmMSBPdXRzaWRl YNjfAjsDQpI4XcMxXInp P5QgLOKdIkqLX7jIMDKs AEQVIkbgA10doXQoyTBp TM2yQVBfQqE4WqRuOwXw AgrqSEXtG3RhLMExyasf sBiqQAovnW05AgEhXhKv a9FdJWZ1xtzkNBQii8Hc nKjtfOBfTSveVoZ1UOsl mE43QiFosCtbWiW3MTOH XRJLL1tUDTFZX7TIEpME OYWLUB6INQYyQWWLSTRF JSXVRw3bEOvGGJYrLMIp Y68wiOTqcIezCWNwgOCk XGxpMFxmaTBcbGluMCBN RFcvRkxaIFxwYXJ9 Comment (test code = u4ecpFQrOOAffDIgQOSk 9835) NyxchiIsCAHtkVZoK6Zd bsncMOdqQC5vYE5mgVby pVTylNYlLSYrPgKck8od b884tZGni3szJIFAkyfd fNn4wOzhG34ex5U8Qgsm Z62qrYJsOQI5YBAhZLIm rMUiMUBqKFZ4DGWdyWLk Y1mhTTXwUP7odmzbLIol RBadSRQlqLD1HAMzkGBd S1IxZSIgRMuoGKDhkgc4 JvHvRs6xsCYvjSuyIDan YXJkXHBsYWluXGZzMjAg B4KltCu3lVQgZJdpmRZk q6aed6SfK8ezjEwgNJyr q6XfyY6nLOEmybCebi6v ZCBieSByZWZlcnJpbmcg kP1qpDk6nPNps54xp1qe hcB2vSS1PVTLWsKdjDeo bGlnaHRzIHRoZSBlcGl0 aGVsaWFsIGNlbGxzLCBh bmQgcDYzIGFuZCBwNDAg iNpljMaeM7z0leS6jSSw bXlvZXBpdGhlbGlhbCBj EBhzmd0oBBMlBKJnf1Ay qL5ej5p0UVEfEINmgR24 sc2nmOBnc8T1jOYhvDBs l1PrzV9maWv8ANLfZyU4 fTnjLIQwCOEpuTAqQ5K3 yF5fWcQcxHJzhR== Biomarker Block(s) (test d6hezNFeYYFjeUEvVMPb code = 9841) HumvslQpMIMhaLOsW4Iw ezzeRPqeJM7rHS3tdXyg vBCgoEStACRvUqVhk9mf a656jHGsr1ppUDWEdckl hPi8fFufO85fl6V0Cxeq L3cyJIHyZIksFPBzKBnt pXSrPHn8DAFpwBEkebBg FxFwUYWhbJOtoPP6MDRr UB4fhaaaQBprYZobGIBh jrR6LRJavGTwT9TyJWTh ZY0ugbbvEXS4MKpjVCGp LFH0ZmCdZCNka0Rvkmt2 MjBccGFyZFxwbGFpblxm fmDvZAX3mG9cRMNxe3Xx OiAgXGNmMSAyMjpJUzE4 NzBccGFyfQ== Disclaimer (test code = y2dnoHHqJULwiNIoVxNk 9844) JAAeDGPmh2zuCHAccKYp ZzEwMzNcZnRuYmpcdWMx POEbWwEbz7vni984qZXy i7tcLZKlBoY1yZLtCPJo vNQnQ899IMPlFImsk3xp c5UoAVDpsIFjs0U9KSBO ngjtsUx5vScvD72ej4A4 TuhlN3fxKUFpTOPmH0Fn HX0aUBHwHbx6DBZ1HRV2 NHAcFBSbS1JdXF6uAPDd iSTdDCh9t8qleFlxJRKu LTV7q2pwYFejfrGnTQ1o ct8dfCu9a2spqeLdKJAc KCNnpKNZNRVyA1ZmuCse Tr8bcDk0xBitOcaiOYD3 Byk8PE5qdt39dyi6yQzj ALYrqeyvLoN4VRulLUWh nsbxLXt5KVblZHZveRJ2 DXPzmGKzM3StZSHtZC7q amy3ERF5FWepMKVzHvA0 NDBcaGVhZGVyeTcyMFxm b653UCT5XfEwZX6uL0Vh i1E6mQ7geGQkCMNoaJZl NiRuTYMups8ppRXuKIxy p1IxLRG0zvX8mZRgwGGe ZFXxLM71Qrgfk9CyTqmn DAF5PJHjaqRws0Gda4yn SyPmcrLmS2mkO4RyNPGl INVkHEAsCaWbodHvm9Zw r3LquMDmqJh6z6jqRJBs HDSnzFfiq1znFPI8LULc B2Z7jONio0vmALksXRQz xEO3ihU8VQEbaKTwH0Yp bI5vNIMwZQ7kyhd9l2ba PTC3JZpmQYCrLbX6whR8 NDBcaGVhZGVyeTcyMFxm c004KVO2OeGpUDUvq9Ib U4XykNejO33ikWemR93q YWJkfIwzvT9doQbwbO8k ZjBcZnMyNFxxbFxwbGFp alsyBActxtL9JEdxdofj LAGqPLbnS5nxWlAvGARo wDvvPPcru1WyMHEhUIRx EwgvdiN1COOHi20wDJEt u2AlLNXcgY6tiJBcDYop dbNudDT3DJhtmuSrKwFx pmEmJDDihL1bTOXjWQ7t BUKvbsQazi8bkhIhAWZc LXCeN0DrcminmMtetwCq CEGfns1rvqFlECF4BWVK QY0AVVSzHFBpa81yFCIg qGgseV4hbKSfugKqHSLi z7WitE5ukTMZYNPnB0uf PJ8pWQxks7HdgUWdfZHn fFU1TJYtz4IoKfFkgiNs yADebZXyJ0DtdDwuD4jm LQTrMXOqldUocBYdk2Ao ZJUnuBH3eVOgPI6OBnRV y78dCJHeYHEXuzXsDIOq rGsyeJH8fsU2zN8oAkHL ZiBhcHBsaWNhYmxlLCBj m807mx1vpwT0VLNcJSEr iargo3NiIPJbYGNdlJ28 DBHwXQZwvh6mzpojkQHh fmPnO1Ubbgl4qO2fAXIr YWluXGYxXGZzMjJcbGFu ZzEwMzNcaGljaFxmMVxk ZeItGZQxJYaaQ2fuQtWr ZnMyMlxwYXJ9 [facility] 2022-11-27 23:08:26 Test Item Value Reference Range Interpretation Comments Materials Received (test w5sknVQfZTJarQVpIfKh code = 9973) UPMeSMClg7vnPXIzeHAk ZzEwMzNcZnRuYmpcdWMx LEKrFdFwi1jyq181bXWh l6dbJPPuKnS9hVVuDBDt kHDoH903DWGxVPqti4gb e9PkBROjuGMnx7X9XYDK ovvhbPv5qQxuG86wo9U1 ComtO1tzDLVsCXSyB7On JW7bVJOfZkr2EFM5WNN0 EZZxQTStR7XzMD9vJPNk lBVwCYd8g4hnvOqzRWEc ULN2o7atTPpuewAyFE6o yk2rlDl8w9fhdhPuLXFl TDEnwPVVSAHsK2NnvXld Zm9uwSg8gKbkSegkSJZ0 Puw0UM5lex48pdn8uHnh FINxoxjjNwG6WIuyNVAm vrutSNw5UPdxBRFxvQtc MFxtYXJncjcyMFxtYXJn uGR6KLUinPXdZ2EfZYSj YVafYFTtkgy7GdOzPa6l cYSluEpjXQzsp7zei2au dXUxTlw9RFXbIbAdBxjo NDbhu8Ias8anENEwvd1t JVX1uRTtvMbcb9N7yNTs IDShpQTocrMhGXXuee87 aVNapHMwvCEsnp0cjxWo iRUseCRkCAV7kRSlsaYt HFQnfIFuPSMhJX0ecMRa WEYriL0kqvfxZODuZdDv qfvjRQBffOzvlzNsKt1i xGluLMD1UTdqB2fxqI4n UsQ8KKfgO3otsE3kIDg6 PCepoKN3HISaaZ4kVF0z inytd5vnOdQgZO0uwywb a6kuFxUuEB4luth9r2ru FTB7XQuuHIBtByX7ipZ3 NDBcaGVhZGVyeTcyMFxm h776NFV1MaZoNFNqx9Cn G8ZpaLcvP69juMenF27p MTHlwNkuvW2dkDtqxN0d PyIpRvDiTRt5gv60QMz0 tegbpVoiPUt8sjInMBWh DWZ8IQNbcNCxDKYtB1a1 vgLvCQSeVFH2ONGvaYSd GCGzQ8c5giXbVPS3UEx7 cnBhZGRmdDNcdHJwYWRk YjBcdHJwYWRkZmIzXHRy wZEvuVBvyMKfbL6wpFyb NYWpeDLloN8bOYA7RXKr cmgzMjBcdHJoZHJcbHRy fl93ZJKtoxXsfPMboIxk fQMiVTF6BPNxLGPuRHQc KAX2NLIgGmFxnkJeGYtc bGJyZHJiXGJyZHJzXGJy HVU5LUQaRnThwmLhHEpu bGJyZHJsXGJyZHJzXGJy KCU2BOOrWoIumpYqTXwb bGJyZHJyXGJyZHJzXGJy LVC8MNArMoMbflBfIHnl bHBhZHQxMFxjbHBhZGZ0 G1ymwAJoINOzORasaIPm DNRcT8noyKFkPMpqZVKc cGFkZmwzXGNscGFkYjBc B6sfLLKzUsQeI8ImsHp4 MDAwXGNsdmVydGFsdFxj eYVjQPJ3ZGIvKVQnEKTs YQW4YQTbZxRwyjBfIOpi bGJyZHJiXGJyZHJzXGJy QCB2LEUiZmEcnsThGYxf bGJyZHJsXGJyZHJzXGJy ZSE4GSTeSfJjobPrBLts bGJyZHJyXGJyZHJzXGJy WML7USFcDdZskxLjINuh bHBhZHQxMFxjbHBhZGZ0 K3xkxJHmIBRqDRvtkKXe ZHEwJ1kixUKeLEpvKOJg cGFkZmwzXGNscGFkYjBc B3mxEUMoEaJiZ7HqqKz3 NjAwXGNsdmVydGFsdFxj gACjRGP0CUIcQCDgLVTc BAU4SQByQnMpbfGxCTjt bGJyZHJiXGJyZHJzXGJy OPQ9KRVeNzKrsnRsJEfc bGJyZHJsXGJyZHJzXGJy GCY5JHMqWuZzgiPmGAwk bGJyZHJyXGJyZHJzXGJy CFI3NVEzYpMwarGwVWkd bHBhZHQxMFxjbHBhZGZ0 Q0lzeCZcPNBsJLocfADx QTYuM7mzlEWpGPfpQSFz cGFkZmwzXGNscGFkYjBc G6jzMKAuJdJiT3XtnPg9 YxCxPHZiheIyqD22Jpgl e4LhSRRbFVR2NAqyGDdq bFxwbGFpblxmMVxmczIw SXrjncxxPVZuEIqnI8hb GkYhSHUhkEfiTQqrx9Kf XGYxXGNmMlxmczIwXGIg VJLtIUTbrR2vXthhY1Mc sB4nMPetDhzeA4clFHEw v6YliD3lXXciwGFvtqfr MVxmczIwXGxhbmcxMDMz EQweQ8aiVrXnJTSumJnc TQkjm3CrDPVvWIEyYhqq oxPiXHa2neUuGENmhHwx zFBvKFrxikSidSxuw7Uk olWygXuhPSSoJDp1ztLq mdbamUr5dWRtgQimOCJt eQhirD1aXjQjGlPjMIuj bGFpblxmMVxmczIwXGxh tzrjEUSnZZvwD9gvSeMz DXXrwLdsOKtfi7OgEKBb OYSdMxfwjgWoPRIoK51e bGVjdGVkXHBsYWluXGYx XGZzMjBcbGFuZzEwMzNc aGljaFxmMVxkYmNoXGYx FOijM9qePtAdW2RfXPHd FxCozNLiE2ioH8CobRuq YXJkXGludGJsXHNzcGFy ORG3oIDotwQeiATrtIIl PUBdXYcfOTG0qNHbichv gXFjvvpiUHsvlyE4JYPk YWluXGYxXGZzMjBcbGFu ZzEwMzNcaGljaFxmMVxk YzCvRLQqTBpzM6znFiZl H4MoADTyVjUgNzQUBPJh aXZlZFxwbGFpblxmMVxm czIwXGxhbmcxMDMzXGhp C9piMxGnFHRqsVimEFtv e1NkVWEpBRUvGzfinqPr RYw2ejImQVWxvNxzlI01 Xzihfk99YLBrp1njLEEf K5RvlFHbAWVlxVKeYPns MDhcdHJwYWRkZmwzXHRy cGFkZHIxMDhcdHJwYWRk ZnIzXHRycGFkZHQwXHRy sCXnSUK2T4k1oySsLOTc MMo2dzBjEMOjKxBpeSFy ERB5AKj1PoojhyM5jWAz S5d0QeirliXgWNucpEVt wa25KUDueoXsoPTxsTkd eXPgQGT8WUGhOLErYQEk BXH1URYlVuEglvMaBKpz bGJyZHJiXGJyZHJzXGJy IFB0DZXvYhKmntOvBNuf bGJyZHJsXGJyZHJzXGJy HFD7SFVpIqRjclCqKWig bGJyZHJyXGJyZHJzXGJy VQK9AOKeIhRucbAjGMwb bHBhZHQxMFxjbHBhZGZ0 X4lceZAfBQEkHRjkjWUy VDOjS2ryxGHgNBzxHVEo cGFkZmwzXGNscGFkYjBc E3bbSWKbSaRxS3FtqOe2 MDAwXGNsdmVydGFsdFxj mANlZRB5IQUdEAWbAEJe SOF9YKVeMhMebdKgJKpv bGJyZHJiXGJyZHJzXGJy LQC6TWFfOiOtxhNjRJkf bGJyZHJsXGJyZHJzXGJy YNQ6CVLxSbKpilYrQKir bGJyZHJyXGJyZHJzXGJy LRV6EAQnOmNhpvVaIXny bHBhZHQxMFxjbHBhZGZ0 N6txkAOvPKVuSYrgnRDo PPMqB3fvqTLgPGrbZANj cGFkZmwzXGNscGFkYjBc M3mdKLPfIaPbY5FizEz3 NjAwXGNsdmVydGFsdFxj wVBiXQH3TCCvMJXhXDEv WSG6XOGnQjNremQjNZoq bGJyZHJiXGJyZHJzXGJy ZEX7WYFwSyHwscUiETll bGJyZHJsXGJyZHJzXGJy AJR2MDAdVzDvpaNgEClr bGJyZHJyXGJyZHJzXGJy TPH0JVXaBrWjzaJzLNyi bHBhZHQxMFxjbHBhZGZ0 D0yfaHPpQLDnBVwnlRPh TKWkL7kxzQZzEVypYBTd cGFkZmwzXGNscGFkYjBc A9kzKKDvXpIvZ8JodGe6 EsXlZRGefgGbyF37Qijj e3XoPLZkPUH8VFxzIRnj bFxwbGFpblxmMFxmczI0 XHBsYWluXGYxXGZzMjBc bGFuZzEwMzNcaGljaFxm XAmpZhUbYCQcHOnqF5mk SlArZ1UkMEHgKfMgQH8z WyH7MMWzUJgyLXN4IWUO KGNfDYYPV4AVOzqqZLNF L4TiiSjqdD7oWtIwEjGb OXntKO2uWPKcM2aqbSSm UBAnVKKuV4laMnTkzZ3j aFxmMVxjZjJcZnMyMFxs dHJjaFxjZWxsXHBhcmRc uL31Ogbwp1CfLSMjWPH7 MFxzMFxxbFxwbGFpblxm VSvccuE9YLPeLIbjEYZb XGZzMjBcbGFuZzEwMzNc aGljaFxmMVxkYmNoXGYx QSssI1zbRyHgM5IjYVIj MjAgMTIvMTYvMjAyMlxw bGFpblxmMVxmczIwXGxh lyvxNQZrFAmnI2zuEpTv KDXpeSmuQDdcg3LtGUQh JGUzWgwkxxWzUBe1kyPu XGNlbGxccGFyZFxpbnRi lNjrb4AwxcLmySmuIMCr XHFsXHBsYWluXGYwXGZz MdCvqGrsxW7yKaQtLeRl XQkrMV7zDEXdU7bloHMw WKJwVRRfE7khDzEzjK0a aFxmMVxjZjJcZnMyMCAx YrJ5OfJdXaPkqLwotP4z JlBiKgZrJNgjYY5jSWCj F0zwbOZsATBkPQTzQ5ri IvZctE6fcYjzYSbvVhHx ZnMyMFxsdHJjaFxjZWxs LThxdCXmSPTjz6puKTAt QBYkbXFcGQE0lAIbnrLz iZwcjGxpqK4qAjNzXxBs NFxwbGFpblxmMVxmczIw NZchwssrFODqMAegH1dr SgNeZRMgjOakAFeoj0Fm XGYxXGZzMjBccGFyfQ== Addendum 1 (test code = f1msnUCaVONcjMNlLUXd 37) EtiguuPcRDMrmTYuI5Mp glkmWGfhSY0nAG8doBfp hZWmrLCoMEJqAcCve7vp f927tDHhh3yaLWESXGmy HEGKDCl1i8nbKGGJbats nUa2bSgxP15ch6H4Ozal D87bsPVsALK2BWCbBBIb iEBmUZWiQFJ9HVSguDYt H5ljSPExTR3nqokrTYhc APaqLMAgcYI9DYWkiNCy L7FyRYOtFRdsGULwcmf8 TtPlSc4cfWPslAkhPXtq YXJkXHBsYWluXGYxXGZz MjAgQXQgdGhlIHJlcXVl o0Mbp7SabEkkBHUxTYM1 hP9nAUHcoVBoR0mwyqO0 zWTmCj7lwZ93hC2pVSE6 kFQsVPSbv1AgBTPqNCQl g7PgZCOcLM8rYAekgQRg eTVqfHEtMVV1VS6JZXHa YHCxj78eMxOexEPvJJAv mrPclLZgWSFsREZ5xG2r ciBjZWxscyBhcmUgbmVn CWNesqZkTn0tOTmldgXw SDAlKTIgtRLkoT02pe8w uCD8e2QmLJ0jO0FmHUMn NPo8y7roFoPaqFNlPFFz hyFhlQDnTXLmQMK2gQ5u hxPcDHeszoGgjfYphQ8d aXRpdmUgIGZvciBjbGVh wgZdPX1XIJVWOEGrNDO1 APFyOHLiuZVpqN85dj3b uKQ5o9KaXW1pV2LmPWFz OXr8t0efCpNhjTXzARCb ooBEVR3PQFQxZ0agmzXb MjJDMywgRGFrbyBQaGFy xSA6QYFMp34zkJ4cUWOH u8EcgIz2SAJKK66aVVJr W1VPUAwiyETizCEykcY0 aGFuIDFccGFyXHBhclxp CTMbOZMtk3O2HRfgTh2h fZY9nW2bVZGdBUP1MIZy aXMgYXNzYXkgaXMgbWFu bSUvF4O0xsBlEXL0HAZc aWxlbnQgRGFrbyBhbmQg lUNnakWrEZ6vah2nqA5x QSgmWZ73hP1VBH6LWIha B3diqlIaVhWLFj1bBJTb jNVcvGUyTs8gdNXyAF2z ILFghc0efYgvEZHqkEXp IHBhcmFmZmluLWVtYmVk JTOcJTDzo7F5MPU7g5du FiWqdoVVC4kgBX67ZVUg i98bPRE5g1G6CRqcDTCg QK1gQRFtsIvmISWoJwLh JIRxSOH2HKH7hT3mYVtl gDaoSGUgg5HaT9geeNRp JLO6FCYtHMTbNX25QzAu jMYkIJKaXHp6AKwbGVPc oQDlvhQrAPYqfhY9a1Ff VPFgAJTza14qSE6nj89z RIndL45ge3QmCnCke1Qx m3RlO0grmKUlfHspvmAb tFXuDE3eVDYonxHacP7p hQEag5JfbZnmTVIdU63e KwacSTVblM2ywMKgbbEj a1HgscYvFOUCTujicLVf V8BnW0ZiYCYoBOZxgwW7 iTWueuNxOoKgXX9tCIET KChfCXS8XUllgY7lDUUh kCvyBNo6jCQvwSBowW31 LNTqybLogSMkr9SxV7Um dXGcf5omq3njMwUcOI8o mbVab8GpOXF1WRhpyA0r CT2jVCUhfUDwkpAhlfYt sEm2SAy8fSXon2A7dLWn CJXjOHLpKMMpo7OuVUzu dvKjnuB4cECybVEbp2Ad QEDdILRfpY17wL7aFR1s kEVeGQ7hvJIqx2KgZ7o8 r2KiKZJtvTThu7KucF0m dpbau0FkAN93LNnwgXFd q8d2fPrmFXj1pKPcKQPg pII0mMHmrV14SHxepmNc PjOkAU5bCDPiCDTuIRTu wbQgg3r0YYM5nQ8kcsYx ZWxscywgbXVsdGlwbGll ZCBieSAxMDAuIFRoZSBt ONmofYSoEYGvv6PmSDne CBOiPejgFSHuJBYzV4PH AJTgVW8tgVGxXMueTQPf clxwYXJkXHBhcn0= Diagnosis (test code = o6yjeGKbZAGgfNAsEMQd 34) DjpymbWfOPWifBLyK4Uj hergEVsbIK4dFT8aeUtn mACjfQTlETWcEoIbz4nl k537gNTur0hzXBSRohti zRi8xArdC60fn0L6Uqwi C0vsQGUdXRfyXDSkKGht rJSyUGo9ERWmfWZfyaFg YcOyVYExgEWdvDQ7VIYg HF3anbcyGWxnRZgkHBVb xoJ9TLZtqBFzF3OhSOXv ZM3ijkhkXBO5QDjbLMPs SNI6JmKzZDGgz0Fnsch1 MjBccGFyZFxwbGFpblxm czIwXGNmMSBPdXRzaWRl POkdGtsVIpL6PiKfMEmj S6UcEWUnDeuAP6jEBTTb CZLREpnuI55nsCLwvEKp EZ8eHUQdGdU6HpIxBkOb CnkkQRWdK7ChFVLcnklm nAzpZEdtlN82QuJlJcNj o2ImEFQ6ggwjPFPbv4Pa dYswfXZzYDwuEkE5VNyz lM56FiVkzQjtUvV6INBO GCDRV3qRECTYB8LYVsJU CLGYYG0DOPClRFFMDVXY BFOLAv6qTLnKCCYpWBHs K21ovPAyjMhvOLVfbYLv XGxpMFxmaTBcbGluMCBN RFcvRkxaIFxwYXJ9 Comment (test code = n1glyDJfOHMojSJlPDFg 9891) LjaxwbXsZTDplXUtW4Bk utwdYVpkWW5wIS8etWfi uIYxqPGlJXIlEuYhd9bx t825eHZga8rzKEAEuurg fLf6vIebU11qh3S7Yirn Z76czSQlHOQ3CSRdTGRe oFQnOBYxLSE1FIJfaUAi D7wzNHPaXQ2ervhpAArw ZUbcTMBjjFV3WYHokILe B1IaUUNcPIqvIFRzvds2 TlRiWe7gkULvyNdqLEsw YXJkXHBsYWluXGZzMjAg Y8EgjWa8mUWaEIgmeRXs e7rhi5LnZ0jtsMxeNFwn c0QylG4cGYZjohYjow7c ZCBieSByZWZlcnJpbmcg nW1fpTa6cFCwq12nq3ds vpI4wEV8ZXQBVkVxjLxo bGlnaHRzIHRoZSBlcGl0 aGVsaWFsIGNlbGxzLCBh bmQgcDYzIGFuZCBwNDAg wAukfHgjK9c4wyH3eFGl bXlvZXBpdGhlbGlhbCBj LEsqyg5tSLMeHVFrr7Rs cZ2oq5e1YCXrCRZmdD43 ty9avXOmi8N6wWTmyUQj l8BnkS6dvUl4ABOcSgC0 tFgkTWFzXGTiyMTmR6X6 aY2eHoSvpFVjzF== Biomarker Block(s) (test y7nesSHcOFOfsDAtUPNd code = 9841) TugsoyUeRAKquDUnR3Tr ertzKSsiHS3mBP1lcInp kKHotLNcTFBxSjKyr2mv t342uHXov6jyAVFQbhhh eWg2mIrjD86az4D3Qeus P8rvPZBcCDplXXFwAZte kGXqXQo4HAYkjXDmbuPt BcAwSEEyePOcyBO5YAKh DK9poswgITkpXZthMWCj tbV5MWAymYLgZ3TmMIGz DV1qxnauXCO4QIcbDZQn GIO7WxUdGQOqc7Mehsg8 MjBccGFyZFxwbGFpblxm wdFpDUC0rK8qLEMap2Wm OiAgXGNmMSAyMjpJUzE4 NzBccGFyfQ== Disclaimer (test code = t8wwfLDrJKOtpIQcRkMw 9844) XSUwPSWxz6qxFBPwfKNi ZzEwMzNcZnRuYmpcdWMx PDOoDvLqh4txi033uVOn d1jaXFVkJgS2lCCzRNUp rLPdJ986YSXpWPhrm7jk c2PiNHAdfHJnr9F7BUSI moojmRd3eIuqR98oz5U2 RgexX6xuDFZzCCDqZ2Ed CI2iOTYiUst4ZRG9ARM9 LMDpNXMaY6LzZF4qHBLu yHTjUAu0e3tneUuwMDHt RGB0b0zdMQcsyxDcAV6x vi8rcVn8g9gyxdAgSOLe DWYviWLRGKIdN9XfzGcv Ox4kiVs4iPvbQsjcESU2 Xhq5UT7lyn40ryl6uDzj QEJvdngnNzZ5XFjjEEMx ijzrGZo5MSslQFXpmWA5 PMXocIIlV6DmPPDpFM0h fsw8HKP8WGsqISXvByT0 NDBcaGVhZGVyeTcyMFxm b537VFI5BnZfDC3mR5Dl q1C2tV8odVYeLRFamRHi HnViWJQmph0qyJZzYFbc s3IgHDY9nmI3tBOsdCTi YFWcJK25Ewrbk6OlUggu OYJ3OXAwjrLpp4Vin1yx LmIgwrPcX8pzM4JoZQQs TARdHIToOrEvwzQmn4Oz s4WpwCJwlZh7w2tdULOu ZYDjmJrjz5dfMMY4ZLFb X3B2zSCkz2kdMJmvFWBc bDK3mhX0VGFgaOYwE1Qw jC0jLOMuIJ6fqom2z9ab ILD3BGcdNLKxLaC8vtE2 NDBcaGVhZGVyeTcyMFxm k988KXJ3OqKfVJJjh9Mx D4NovHkgH66xmCyfX18j LJIwoLuzzH9fdCgwgF3t ZjBcZnMyNFxxbFxwbGFp exvfLIubdvL6TGzqcxis JFRlDUjtX9wtMjIzKOJx zIxsXUuto2ZlBGNtGWEc GvepevI7NBDRx48tCTSs e6AuVEWfcK2rkJJhRYjg skXydEB7WRhjgmObWsAo reQiXKIpjM0fFEPtEU7z SIGsjnLahs4caaMyBFKx DOHjL7AtaruwkUtksyLe EZLjiv2iktJnYAX2JONO IG3DUCRvOAFbx18sKRRn sZfakX1uyTYyohKlIJUo h9IxbW4hsKZMGWTjE6np RR1fOQczo2CyvKKhwBGv gNM2SUMdp7XtNwZrhfNy dIGmiHFmB4LmxIgzP0hb UCYmNZCfirQgmKKcl5Jn YUWpyRV6kCJqKJ1LFvGY c86pZGOjKDPFhtXgIPMo gWnfeTB1isL6mH8wJjZX ZiBhcHBsaWNhYmxlLCBj h200nm2fsuD0WSNgELTq vesjk2TtPBXwZISpcL49 YIKjHKEuyq0eotwaxTJl ebSfQ7Bhwhm5hA1mBBQr YWluXGYxXGZzMjJcbGFu ZzEwMzNcaGljaFxmMVxk UoEeRZYjFXjqN3ifYwDn ZnMyMlxwYXJ9 [facility] 2022-11-27 23:08:26 Test Item Value Reference Range Interpretation Comments Materials Received (test p4efnYObUZHroDIhGhLq code = 9973) MGElKBYde2bsFDXhaOTz ZzEwMzNcZnRuYmpcdWMx MFFkBnKfx5wjm948eGHh n9oqZNLcBdU2tOGnMYUn aHUoE266ALNtONkti8xm o2UmPUItbXLwg1G3HIER dxbrfIz7wRzpA76yc3Z6 GbepQ1vcUFNbBQNnD0Mh KX4yJNQiFqr8CJQ9QDW8 ETKbSZBgR7ChHE4zZZWn dBApDTf9k1iejVpvDYXt SFE9j9kgUQkgqyEdID4f cw4hmGg6x0buguByGUGn TKTniSIAADKmT0IbeOtn Nl3jvLy4oMvdGvmjURH5 Vxw4QC9wqo51sre5pFlf RQZsvlcgQdB4VRhiAZSc cyxoCBd0PAggHWOafFgc MFxtYXJncjcyMFxtYXJn jZS9MFTybHKxU8FcUFKo DInmZGWyjis4HmFfQu1o oHJxjEvbJLmdd1fjf2of zLEnGcs5ETVmWiFlNpyl UKfbt0Vxc2viVJIixo7m AMH4nSBbqRgfj4L9eKRx OJNlqRUmymYkMYTanf44 eVDdwUGmzESvsj9qitEv sHRvnONxUQE6xZTatnWq JIOmsJWyDKVhIC1soXUl TBTgvB8akewvYHTbItAd haikDRAxlXhhlwXbLq5h aJtdYMA7NVjhX9pynR7j KaI6ONzmQ8ubhR9uMCz2 LTgcsRS6XFAuwF0iPN1s lslsn9jcTtBeVA7lhita p8ryThLkWB9bgoz3n2km UCK8WZjdYHRdZyQ4quF8 NDBcaGVhZGVyeTcyMFxm j478EJX4IbUbYHYxu1Ay R6JobUdwX92vaMotF37h VSBmoYhrjU5tpLkmdH0a ZyOeXaZuQAp4vk65ZAr2 gvndvGgtLOi0aaQnBJEs RVR4XQNsiQBzRIWcG3n3 cgVoPLWxNZZ8HENtaIZf KUNvH8v8yqNyEBQ1THo9 cnBhZGRmdDNcdHJwYWRk YjBcdHJwYWRkZmIzXHRy cALnaRDiaRVsiZ2fbIuz EXNboTDeqD2qULD8OMXl cmgzMjBcdHJoZHJcbHRy kf44SAXytjKxlPFlrTes vNLcQPS4SDOwVQXbXFSe NHL6VPAoNoUqxbWpUGfk bGJyZHJiXGJyZHJzXGJy OYG7HBRgYcXjxyLeKGqt bGJyZHJsXGJyZHJzXGJy KNX8PCLiObQobjLxFInk bGJyZHJyXGJyZHJzXGJy GEZ0MYOjIoSaddWsHAil bHBhZHQxMFxjbHBhZGZ0 F7xbhZRnJYDqDKbqoPJq UQSzN4gpiCFkHRqvSFCl cGFkZmwzXGNscGFkYjBc U7jlPTKlCrFmC3DtqEc7 MDAwXGNsdmVydGFsdFxj tMAyQHD1BBDnNVZdEXFh QPV8XITfLwTsohVyHWpn bGJyZHJiXGJyZHJzXGJy WMY0CKYdDpAoknXbRHzk bGJyZHJsXGJyZHJzXGJy ZGV7ZMHeQnTblqDhQYhw bGJyZHJyXGJyZHJzXGJy JGK0QOZpVcDnxkNhNHid bHBhZHQxMFxjbHBhZGZ0 K3dwgBFvLCTmPMurbZBr PVRoX3vkfGYoGUjiSCEy cGFkZmwzXGNscGFkYjBc W1yuNHLuQxUmZ6PfuNd8 NjAwXGNsdmVydGFsdFxj nWHxIEV3DGZxJSOhDTTk KZG5JCIjGjXnraAoRVti bGJyZHJiXGJyZHJzXGJy DKU5MUIuJaGeiuSvHZxw bGJyZHJsXGJyZHJzXGJy MKF4TDQnSbGkvdDwAWlm bGJyZHJyXGJyZHJzXGJy NLT0RONzPuWujwSeBPkm bHBhZHQxMFxjbHBhZGZ0 X5rytCOvFTInHWslpOKf TIDoV4uhrQVpKHmmBDEr cGFkZmwzXGNscGFkYjBc G9hqZTXpCvAbW2HneQp7 KmYrSNEfarDdkA64Dijb p5YcIJAkBBZ4LAreOXoz bFxwbGFpblxmMVxmczIw TYjgzgnlLJOmNWkzQ9gx DaZoBHUzvUdfRRrnb1Wv XGYxXGNmMlxmczIwXGIg BLFeNGXsjY5eDrrhK2Ns jL2pUCyvAshsV6bjPYAp h1QdfQ2cWRrcnUZwjlbt MVxmczIwXGxhbmcxMDMz RVifL6ldOeJpOWRyoCgf XKusc7HyLNXxUBDrFptb lgCsHXp3jpZjFTEutNtc oWPcXKbsamXfbQuzr8Ua rlNvsKspLNZjJLs3dkMz brwfoDq1yIChiUgyHNQk kIjziC0tRlKpNoQyTFtr bGFpblxmMVxmczIwXGxh wyrrPMOyKFirJ0mqRaAj HBMscJvxPVwkb8GkVIIu BODnDdwdnxLqGPWmN58q bGVjdGVkXHBsYWluXGYx XGZzMjBcbGFuZzEwMzNc aGljaFxmMVxkYmNoXGYx HClrV1fuPmAhA2DiAVYb RhVtkECfL8qaE3DojNui YXJkXGludGJsXHNzcGFy YKR3qXTeorCeoCMgkYYl EYJsQHbkQNJ2jBFqnlpl bXFkmmijVKemqsN6QMHe YWluXGYxXGZzMjBcbGFu ZzEwMzNcaGljaFxmMVxk VxDxXZIdZKfcR7ezSyBg V9AuLHPuVmBcZsBYZEJj aXZlZFxwbGFpblxmMVxm czIwXGxhbmcxMDMzXGhp S0xaJgLkVKCrjWwfZHbv d4RrJWAeDMWmYsykmcIj DCl9mmKqUBZfpBkssU39 Zgollq30PYXus1tmICSx X1PwlYIyUVRmgPBmOGys MDhcdHJwYWRkZmwzXHRy cGFkZHIxMDhcdHJwYWRk ZnIzXHRycGFkZHQwXHRy jOMwPSK6S2o0jqAaMVJh BNg5yjBjPALvCjSgkEEg MDX0SSs5CcincoU9xIMm A8u3WjedesBtXPqrfIWb jz89PSBgrfVadQSeqFka pZHdYPP8UNCpAXXiFRKx LOT1ARGtBtHgmsQyRGog bGJyZHJiXGJyZHJzXGJy PCH3YSPwRgNlvtCiIGfo bGJyZHJsXGJyZHJzXGJy YDG8HCAeOgMajoAiSAsu bGJyZHJyXGJyZHJzXGJy NSZ8OCIfVvLivrGgQFyb bHBhZHQxMFxjbHBhZGZ0 E0whyZMcUEOuFBraaIEm ECHnZ0xqaNBmKCcrUQXi cGFkZmwzXGNscGFkYjBc Z9krMLEqEzLzD6ShmKj2 MDAwXGNsdmVydGFsdFxj rUNdXQP1WGOaJIJySDVz UCZ3OALvWrZkcaHeICqu bGJyZHJiXGJyZHJzXGJy HYS0ALXuYaNxijQiLAge bGJyZHJsXGJyZHJzXGJy EYG5PDZhBePpnsEaELkm bGJyZHJyXGJyZHJzXGJy ELH2ZVGiGoKyfuVeVUwq bHBhZHQxMFxjbHBhZGZ0 S0qhwHIcRFUjGCrhlCEk YJOoS6cadLOfXIlrSNQb cGFkZmwzXGNscGFkYjBc B5yeLFJnXjOiQ2OkxDb1 NjAwXGNsdmVydGFsdFxj pYImBXT9YTSpTHLfPZSr JNJ6VKDuIvYvtyMcDYxv bGJyZHJiXGJyZHJzXGJy SLG5XCQhKjBvqeQsFQue bGJyZHJsXGJyZHJzXGJy MSR4VUJrYwIrqgYbLFkp bGJyZHJyXGJyZHJzXGJy DYX1THFiUxSnnyCwHIsy bHBhZHQxMFxjbHBhZGZ0 N3wfpFLaKZFyOTxauCXc MCZpR8vakMShWYhhQAMr cGFkZmwzXGNscGFkYjBc P8daSKZcTfSbY2FgpPb2 KuRjPKVnaiFhgJ90Ypwi p6EgYXUiHJR1HEzxEEhy bFxwbGFpblxmMFxmczI0 XHBsYWluXGYxXGZzMjBc bGFuZzEwMzNcaGljaFxm GHgaXqEoPOVjWBaaR5wt SyCkB5VrGTMfXrNuEQ7l SaN9LXKpEIjoQDE1RLDU WTJzROPYD0IVPgxlHABB K4UenKysqI1sHoRwSfKv RNydEL6nFRLvQ5qbnQNp ZXTkMHOhJ9mpFwFyvV9y aFxmMVxjZjJcZnMyMFxs dHJjaFxjZWxsXHBhcmRc kA73Uxxmz9GoQNEpICU7 MFxzMFxxbFxwbGFpblxm VKqhlgL4XCYiGOkhBCEi XGZzMjBcbGFuZzEwMzNc aGljaFxmMVxkYmNoXGYx BLahP0guVbSbA5QnSVHh MjAgMTIvMTYvMjAyMlxw bGFpblxmMVxmczIwXGxh durjYFNgWOusL9pqDcDg MWIibVttXHbtg2ZiDPOe MWPvMecumeOuOLc2mcSw XGNlbGxccGFyZFxpbnRi zMlju5AosuBzaEdeASZp XHFsXHBsYWluXGYwXGZz LzNuzSszqL0tFqJyKmHt QUnzSF7eLHVlQ7fwyWBk NPFdZXWbR7fdKrRbcW4m aFxmMVxjZjJcZnMyMCAx SfH4JrYcIjDhnYbzmD3h NeHoJtJmPSdfGP3pNOQy X0hkxUEqALXoHIGrU4ks CmFuuZ8gsHgcFWhdFzNi ZnMyMFxsdHJjaFxjZWxs OHokgQQwFLClw2suWNHs YWTacMRmHEK6nKTjmsYd iBfziVbwrA2nPiHhGhCd NFxwbGFpblxmMVxmczIw AJtwenlfLLWdKBbmZ9dj CaPzRCQnvSloNThkn9Bl XGYxXGZzMjBccGFyfQ== Addendum 1 (test code = v7auyRSaVLZyrCFtHPDr 37) OlskipNtDRCyyRIfV7Iy kgbeIMcmWX7lAV1pmDyf qGZsmGGoHDGxByMgi5sl q213tZGqs3rrECIQNIxv FGJGSUw8a1dsWFTKruyf jJh0bCyxV59ea8F6Qdtk X83svZFcFTM5GDQqAGUc fTCtFSFtCMW7BTYaxSUw Y9zoNKSaDJ2lmraeZCgh YIguYLMfnAK9IOSwuVCz I0JwPVZyJYsdSQWxvxm6 WxAjUx1yrICayRwqLSgc YXJkXHBsYWluXGYxXGZz MjAgQXQgdGhlIHJlcXVl h9Exa9LgtTxxGWSyQWC6 cD5tLHWdwZQmL2kevmU0 bMPvYb7hgC76hU4pTIR5 kJPdCSHzb7HsGYWoKBYn z3HnRXJcTN1mYMprxEUk pSIapJAbEXY8DT6PJUVb WUGoi51xOpRzzVKvULTl txVthQIbNQCmPOB5yG5c ciBjZWxscyBhcmUgbmVn RCCstcWkCd3nEKwptvQh EUMrYFCfzIRpfK42nx9z bHI5l7XaBH3zL9QzVOVy PUh1l5vcVcNmqZPjKAUq ptYvsVTyDYAgIUX6yT2c ncXeFUwbdnRsrtZfpO7b aXRpdmUgIGZvciBjbGVh gcVzYK1OBTGJPLEpUTW0 PGNpHXEaqKMljA47mb3m xUL7n4UbXT6pH8BeGNIo VYf5b2xsXeYwuHKsBZBq dhZQCV0QZNFqL4usxfWv MjJDMywgRGFrbyBQaGFy aEC2DKRMs21ggL0sHKIR w3YbjCu3FEHZA99jTQEg U4KWXQdkeOJpoIMaqvC1 aGFuIDFccGFyXHBhclxp KVAjPDAim0I6YAegGg5w pHF1kZ2mVWUpTJX6KNCj aXMgYXNzYXkgaXMgbWFu nQKxW2J3asXgRPX3ABNd aWxlbnQgRGFrbyBhbmQg hDHnqlTwDN5lkv5srV1o UMexZB33nA6GDH4OQHhw T9fwpmDfZzUEFf9xEFLv fPJxtNCiQw3nyMXcAX6v JHAeni4zhQnbNZMveAZw IHBhcmFmZmluLWVtYmVk BASyGMRvy8H8FZW4f8gd YkDralZQK2tkJN91SVXs n48sCOJ8c7I6EQlxSSZm HH2fNBAwiMpdBNUxCsSc BESdBBW4YWO9kR9kEEue sJycAVGwx9IxW1julBIl UQX3SMGcUEGiVP72AmBd rPLkGZKeRBh1KXtbAXZz dSDrbtRpTFFfvdK9z8Jr DWXmDHKrp49uQG4fe69p QGevT06ya2LoZxQkq7Ov n7QaB5cckEYmuPplqbEh dSYyYR5rHHQhnsKxfE0m mWZgn3CbhYxxGJHbQ38h KpztPAOmqA8fqNJdduEm y5NhpkHcJFKGNnetgBEk B6IrY3XjAVJnWXLqyeG5 pBDevmRxFoFnJA5aAEOS LIijLZV4OAkhkC9nOVPc lOneAUk2xIJniJIjiV35 JGMlxwUokWRvu9GrE1Kg hWDaj8rve8oxOtQgLK7b ceEhp8LhSAX4BJkmxH1n SC6kJWHllKWixwKpdiJx mQg8FUt3rAIxi5T4qLRo CZVpEEXfWDHfk0YbELeq ffNpzxJ0mYFqrEMsj2Ph OWUtQUPwwB01jE7yXE4k lKZaGS9vyAMvb6AyE2o5 m1ZwSQXmcDMmn6ScxZ8v kecuk0BkJG51BQdorGOp q6g8vEnqCPr3aKLsHHVr pAA4nLZdjY77HTzysmZl EtOoIE9kQEExPWEcWKEj vgUwh9t5WBZ9rL2sveVo ZWxscywgbXVsdGlwbGll ZCBieSAxMDAuIFRoZSBt JTtfhDPsXCSty4AzYTlj DKNtTedeSDNzBRDtR9EB ROLjWU6iyPGtFQxlMKPz clxwYXJkXHBhcn0= Diagnosis (test code = o1blvZReMFDlpRDzGYVo 34) TixpjmHjCKVnmJJuD5Vz yxfpHBaqOJ5cLH8wxHhl cGTgtKPcYFMaIpWsw1ud u380cFVvv2qlHELLyvib wOo2eNkkC52ud6P6Wstx Y9eqJWOhDEylGYLyJMzn cLAkSPi1ONZlzCQlwbGl NrYiTRLpqWWulQU4UVYr TZ6frxqkULytNUogZHOl pwU3YMAdpTUlZ7JhGMKr NU1rfvduZLG7FOekARVk HVX6PvWvLQOth7Mzduh9 MjBccGFyZFxwbGFpblxm czIwXGNmMSBPdXRzaWRl YFzsSvyCAzR9ChEjCDfu O1HnKFSeQbmRJ1yNJCZi ILLYMfutF77gaTKusFJu MS6oZANrRuY0FvScVaEi UuxiNFIvI8WsKTNvfdaj eUenKOtslU49OvUyLqOa h0RlEOW1nlrdOMYms0Cg wUbahMLiGPzkAaV7SUox uZ78ExUowZzoPqO2IWXR DUUST4mJYZVJV6IWCrMY RKXBLB0RXUAuQRTHWWDE SNEIGt5dAJiFULWhETLu T63lzCVnrXgkMCMgqHOi XGxpMFxmaTBcbGluMCBN RFcvRkxaIFxwYXJ9 Comment (test code = j3mksUNgSRTcqFKxXSGd 9835) LawjhiBaEHXcdKDgV4Mp yylpCYpcSR8vKT5qeQdj jJWaoRNdPYWtNmZjw8fc o143wLQgc8qeRBZWwbpk vSh2oUcfW24nn8G6Nqjm B02ufOLvMGF1QBUpWBEt dIIvMDMqYMN1SUFigUCf K5srTCVyWO9lzirnGTdk QFvgVWDkrRE6TUFuoLFe A5ZwVLScZOyqVXKzlnp7 CkBqFq9tjUYpdJelXRhm YXJkXHBsYWluXGZzMjAg J3LcrEi4uRNzFMxnpDXe y4vga4NlI3hcoIufPHjw i6LviB8hZWNgfhMkow3v ZCBieSByZWZlcnJpbmcg jZ2xeHk5mHOhh22hc0nf bvQ5tAU4HWMWKqGazMxa bGlnaHRzIHRoZSBlcGl0 aGVsaWFsIGNlbGxzLCBh bmQgcDYzIGFuZCBwNDAg hTrubLqmF6m7btU9rYDh bXlvZXBpdGhlbGlhbCBj LCosow3kDAAbNOGbt8Fu wU1ge1p8HLPiDXOzpA98 vb4iuEJzx3J5dXMfcJDl a7TliQ8mwUc7SAOsBwE1 mQmjONFtXGNooXNgC3R2 mP2eXkTpjCUzyX== Biomarker Block(s) (test y6qdbNGrQQBgmZEmTUZa code = 9841) KupfyhWhVUXafQIsE4Ht rqbzOIrcYM7hNE6qqIti jLXwhFBbRQPxFvGrj2qq h075kEJib5icGQJFwbas tKq9wSdbK01al8B0Vmwb E4twMGRuJEpgRVCvWMxy hFYmYVe5YHJkhURevbWn MkXxATClyANcmKQ3DJOt BO9txmnrVSvdIBnqVWKi xoE8MEMlnWNnN1MuQZMl PC4wdigbZTX8QFpvVEDn LCF8QeQyDEIlv4Gbuvo2 MjBccGFyZFxwbGFpblxm ukNoMZP9iX1oWIPys8Oh OiAgXGNmMSAyMjpJUzE4 NzBccGFyfQ== Disclaimer (test code = w5jwuXNkXRWztRCySnLw 9882) JXLyYGBrh3wzJJQxwNKq ZzEwMzNcZnRuYmpcdWMx KCBmYwBom7shi892qIUm h9tiBJPkFjE1yEAkTQSt dAYpG571MRFvTZxuu5ci v6OjYKYreYKve0I0BSWR mceokTv5wWcbK87fb6R5 BkcgB4chUIWcHEVjT8Sq II5tLKBzNrm8YKO3AQA0 IZKcZHKdT9TgMG9fRNDd qMLxGVn0j0rmxWpoHYHs RHI1k3haTDpwlzLtTS8v cp2nqYw6a4ufcmOmQHZm XIRzrMNXXCAzG3FniJzh Db6thHh7sYdjYrqaVRR0 Mhr6LB5bvy12vwa9hIpm GYDopkquBwT7SEjuJQNg vzltMBu8REsyDMJcoSR8 ZVWonNRwZ9WfIVLdHM6f jwm8WHT4HYpvTWHcFdT7 NDBcaGVhZGVyeTcyMFxm m633XSA3YeXrOU0kQ9Fz x7Y2kY1bwWMtPVYcyMTl OmRvJTMymb4xgPIsYYco y9NyLXD2oxB2rKMfvIAa VMJcZZ49Wjhcy7MnNjvh IMR7WVBercIcp8Sph9ux RkSeteXpW3owB6HgFWIs YGVhSENdUrFxkfTot5Ti i1YapIBtgNg5n8ifVKXi FSMzbSmtr8ylYQR0IRAo N6H8fFYuo9mrWZcoWZEx bIZ6ksC2GROpbUQjP1Xy oZ8cCAQvRT6yizn8s2so HFT9QFzaCPFoCmU9sbN4 NDBcaGVhZGVyeTcyMFxm j758VFI4AoBkHTGnq1Ga H8FucGovX88xmGngD81s XENzxHomvF7ssJkcgU1t ZjBcZnMyNFxxbFxwbGFp iwyfZLadseZ4RZqvzcgc YKTkYBnyN4muDaHlZBNr sLlrYMlfo1RoBZTcBZEq MmcgviD3BLIQr00eEABo p8VbHVRpsG8kuIQsJAuz huHquFJ2PPjfkcIdVrZv pzZtUOYruF2bBRZiXO4y YYAgkzTgze5kicCfMWGm HKFhB1UwqbdxgUqbudYb XSBkzx9moxCaIXM4RVPA TO0XRWGmWSJsx22qBSSi iAzvwR9thGOcolIwUBLs m8AeyB4kgUDDUSOyL1ct MR9sNVcej7OnvIYecMQz eWO7YMUra9MaVbWjybWx uYNuqKMjF6LgiAnoY0fe QIMjMEGwkvEpuFAzq1Yr FCXplUU2dZHoMP7MJrAM p15zIFSiAMEIbgQzRKAy kOwojQK8emK6vR0oRrBD ZiBhcHBsaWNhYmxlLCBj j096cf5bqaX9DQLmMVFc yyefg8EhTBOjJABwfB22 TUTlRLXjpp2vyxyttYFc olHpA9Oufor6fD1nOKCa YWluXGYxXGZzMjJcbGFu ZzEwMzNcaGljaFxmMVxk NuHzAQMlZMdnT2nrCeXo ZnMyMlxwYXJ9 [facility] MOLECULAR [id number] 16:06:41 Test Item Value Reference Range Interpretation Comments POCT Molecular FluA (test code = Negative Negative 32495-6) POCT Molecular FluB (test code = Negative Negative 21873-6) Lab Interpretation (test code = Normal 61037-0) [facility] MOLECULAR [id number] 16:06:41 Test Item Value Reference Range Interpretation Comments POCT Molecular FluA (test code = Negative Negative 80579-1) POCT Molecular FluB (test code = Negative Negative 83282-5) Lab Interpretation (test code = Normal 44661-8) [facility] [id number] 16:19:00Reason for Exam:->Morbid (severe) obesity due to excess calories [facility] CENTERName: MARIA DE JESUS ACOSTA : 1965 Sex: FFINAL REPORT FL, UGI, WITH KUB CLINICAL HISTORY: Morbid (severe) obesity due toexcess calories COMPARISON: None. TECHNIQUE: A web user experience strategist abdominal radiograph is acquired. The esophagus, stomach, and proximal small bowel are evaluated with single contrast technique after oral ingestionof thick and thin barium using real-time fluoroscopy and acquisition of multiple spot digital radiographs. Patient could not tolerate gas granules, could not perform double contrast technique. Fluoro Time: 1.4 minutesReference air kerma: 125 mGy FINDINGS: Weblogic Developer radiograph findings: Normal bowel gas pattern. Esophageal [...] Steve Swanson Verified Date/Time: 07/28/2022 16:19:45 Tissue [id number] 18:24:44 Test Item Value Reference Range Interpretation Comments Case Report (test code Surgical Pathology = 104) Report Case: [id number] Authorizing Provider: Dewayne Wise MD Collected: 01/09/2022 11:31 AM Ordering Location: [facility] Endoscopy Received: 01/09/2022 03:51 PM Services Pathologist: Evelin Wharton MD Specimens: A) - Polyp, Colon - Right/Ascending, ascending colon polyp B) - Polyp, Colon - Sigmoid, sigmoid polyp C) - Biopsy, Gastric, random gastric bx DIAGNOSIS (test code = [id number] 3220) FuZzEwMzNcZnRuYmpcdWMx IHtccnRmMVxlcGljOTYwMV lqoaNbKCIwvHUzP8Vyhtmd QOgqOJ0bKH1mlThzwZJpgA YuKBDtOrGgi2enn207lIJr x8whUDTKtnseaEf6rScaL6 8vv4C3YubgA36zmDKcYPJ0 DPRlNFRmgLQzQOVnWNX7CH GmkFTmL1xdBMCpCF4kxvvf XIolELvqJWHsmSA0QUUwmB UnN1BrHBUmLLylJQHltow0 JrJcPo8hzRKyiTktKMeyTF MeWLNtPBfrJOLoIpWqUY5b A40VW40xSRJVF5bVU5VRA8 GJMExMOqyiIZ0QEEGGL2XK GWj2LBCodlp2HICkJSBZAB CMVKBZWDFHBG1XUIZzzJZf SNYafsDYIoVKF1dGGmjiA9 gUTT2FTAtnIK5ZZGMFK9ZC WFn5UGMsvva9OZWtJTVCYC XJGVWNVHTHTT2JBTDhEXPq ggtjLESxCt6cI1TSSBCEKO zyU9hRGJKSO7SfU4RJS3jZ WQBKWGTWZJ7LX9ftpTAyIU RhYiAtIFJFQUNUSVZFIEdB N4MMQ0IJUTyFOXCtjhr3BV VqHWFDHLtLILvEOJ9GI40I QVGABJDTCJ5VNGNEYYoKMR 9HSUMgQUxURVJBVElPTlxw HLKudFLpEH3yCbAEVAAIVx TxEi0QDBqGKFuUZ3PSO6HE GcVWWXQMR56NC2BAXRFJSe RNZqNOG3XZGU7ABFPDISrW P8gjNYU0b9wygTNsIPRzbF UxODAwMFxhbnNpXGRlZmxh zvnfKMUdYUN3jlJaSLFzFK gvVVMoYYteTb9dzKMqpQzt ZmMwGZDkm4zhqzJNraiexA h7x8egQJJtLzW3rNChADdg Z4dfkxFpbEUaKYSrXOh7kE 28VWXqhS5apIYwRGbcscFa RnK8CWmbHHWhTtD3XSLvoH WdTZPyI8jwYHVpZHvvTVMu LMfpeRZmGUK5qNnnq9S9uS VzaGVldHtcZjBcZnMyMiBO u8NcFRm1iLozV2GsJPTqIf O8fFLpJQNbJCcgZPEkENEp cqB7sO98JHyuqsF8fAPzc8 Bzi23vy302hI0qkKDuHNV9 XNYnMMKckHPlVMVqXLB6WA OznLSnD0fvLTZfSZ5yvnro TSxhRCuxTNExoPX7HXQocQ HyD8QaDBXjIYhxGYLwazv3 FxRgYw3vtEKybQixLIkui1 sut1arcJAoFtj4ETDcAvNg IcryYGtaz2Cdx8vuHSHtwb 0uUSG4dBKeaMpxz3K1jIJb FACfnLUyBLSxXM0owVDaRJ EqpZ8tnygiAYOlOmPqzfak SIZnbOgldzNfHv3jlDriMQ E8YCgyM1utjG1lYfO8AJcn P0zmyF7kMYy3EFrrRSJgxX B9jnX8AOJifBImE6LifW4n ACOgLJ7xarx9b2obWGP4XY yjROPeTbE0qeL8USDlgZJr ZUNmmPngNWxtj871FKT3Kr EzGHFsx7LyB0YmkTxfF82u tXveX41mPHPlpWqmcU6woB gfbA4aVvBxSrQbDEtylJdy GF6sCEPeO8yysVGlIOEnSQ XnM2agHcNaaP4kbKbgRQuz dpPeDRPnBvz2NLRacWMwQB IaZlv8CVLnSWUhQ39gcuom TUC5cK6eo1xht3MvAWihNF A9ZTGvy91gYNxqjiS0PSnl Oh10QWscGLB7TFtkIWR7mJ == CPT Code(s) (test code n2jdnTYzTUNehAS0NdJcKY = 3357) Vxp2vyo9DeqXLbwKIjWJgz fSKouxRhrf89dBQ5mB53MP 5oLMOmJhZ1MKBdyeS5Vns4 GFJtBOIknSHeI391o5bxq7 qtlvMtrQU5kIphPTIvtoer HhI5WDznGIQoffluQFu6VE sfUMHhnTW3ZQUlzLTeA5Im EJSbEW9zrzk0SOB3HReiSS WlNbM1QFFthJFfUHHwzJas TGstq114OZK4KxRoQBPgys UebKrxeA9jAjKwQKC1BGNo NVgzXHBhcn0= CLINICAL HISTORY (test g1tjoLKvHWByqVD1MyKqWK code = 3356) Rsu2qoe2IzgHCyhCJfHUkn oUKxgqHjki22kYG9oI75RS 0rJNOwMyD6PCXauoQ6Jrl8 ZABkKDCabNAdN032x7ysf9 vplpOdhMI0yIjrSUBfvjww YbY3EIxuCTJmtlpePJe5IY xxEYGuyVA8GAYmyNQtB5Ux XATaOK7stuq4IIK5DXawCN GiNsI5WREfxCSvCACczWwu GSabx385CBC2ErCcRRErya CkgXagfS6oFzXjBHPULGE3 lg8tg95yzAVjZGQuWEGbFy a9bHBdbRXiZKGgQMSho9f9 oRFcToApz6zizwhyBZP2 SPECIMEN SOURCE (test a4bqaSJiILNliGH1CnQsKV code = 3377) Uir5kbh8OiaHFlzCAyVIda fKQjdiZyyw12aFE5wV65TZ 6hUARlVyU2IROwgxW5Hou9 ECEkNUEziYDpS430n7gfi4 etzbWvlRA0lQfxPJNkohzg VxY2ZRcfAKXuuxqkIFn4XH toCOQulHL3LSLfxVAfR1Aq DOWhZA4bidg8ORR8KZslJU ZoJfG2MJIleELmJGUqxWrv KDxnp859BUO8AjZqGAEttt SmnWtnpH3uSjNpKCDFXsLc UO0psKVxNSCesT2aYTDpQ6 c0F5WhZ4CzBMtgH6vkdM5j MNRbVEEGt2v4iAfxY97in8 7pi9rloL9qWThmwU8wYXAa SDYTxI2vy1vaFRmtj3NcaP MsIHJhbmRvbVxwYXJ9 GROSS DESCRIPTION (test j4utjTCmQGAxjJAlHpXcMG code = 3366) HhXRGrq1qtHOJubIGpSqTw MzNcZnRuYmpcdWMxXGRlZm Zja2lny888oZHxd2ecGTRO kflfrSv0a9igAAAuUjB5pA AmDJqyH7ujjwExjGAsKCUa QUw1hE51PTUvtA7afELqMW wmuwMjXdI1IBvaNGInYqU5 XCGatKAkSUSoP0dhPTFpDE syWVOcEHjoeFXmOHI5qJlq k9I5vCWahVHruRisDqWhPk BbPNCTb6GiWYx5wXxrG7Zv UXQsUyY9bROqMZZiDJndND VdGBGfflQ6lS65PJkcjeE0 mNZbg6Fgx47ef835pZ9otY DpGZT8SCMjVEFjkQAvXCBr QGB1HOFteQNwN6s7IcWleG SfA0P2VqWpcNMhS3E6SzKh qCTvY3I2XbMlgIZeSDPshM QlIc5gaGOmsMLryk2jqs84 WDW5n2PubVeiVBM5UCN2Yl VqKb8uzZDtKHKmIUInwCBh XXSfIP3doGSvMWHggD9npw xjXHBnYnJkcmhlYWRccGdi niKaOb9xfChwTVZ9MCxtW2 btzC7gJbH1FEdrR8aexH1a YQt8CShbjFE4KUCniA7wLX 9ggpewo9vjXcAnVZ3ydaqq g0dpNdPrRE5scqd4b5hpFj WxJR5xhmnka0riFqPvFFgy XEZrnrtkPYUji1LkjvekJV Kzq1PoZ1XhhDmaT59ejYxe X34gVJHkwNmkoV5acRcnbD 5cZjBcZnMyNFxwYXJkXHBs YWluXGYxXGZzMjBcbGFuZz EwMzNcaGljaFxmMVxkYmNo PDOnMUrpF1txVfKkDdHcVF BBLiBSZWNlaXZlZCBpbiBm t1EoCXhkaqXvBTEgjFOkTI dpdGggdGhlIHBhdGllbnRc S9Z0cyUpAQ4hUVLiIJQsY0 JmQLAqD53lGGBviZ9cEHGu ZT7dOIHuv5NmxwAywxqjV6 8gm17plP1nvARbZTAkVZKc a51mjYD0dsSnQwEmVDCfCI RsRM0nUGQpfkVgf0I9TYXt e5L3LKWjYQTceUFqpvmyPF 09IWjjYP76MTauXO1dIVCw TdBGmMDef6HmL8yzNZ9ldI Ydt0RnrIr5hEFpEEgjXPNt xM2xtW8hHIVeGAkmljXhyK luZSBCLiBSZWNlaXZlZCBp tgAbt8EtUUnvirCtSIXciM VkIHdpdGggdGhlIHBhdGll haEgJ8C7dcVfMZ1sGPHwPV QoI6HqEUAdE63rFPXegG7e AGSaZX5dYARbeTjmv2epYF VheR0nAALinMlaDmUldjRk Y99qr3rlrYXwd9WdWaNzqA AfRRInc6KxcNQfFKIylhbh e48nqUN1nGZiwITgkrPlB7 sfOoWidvIgpRvjMRBhs11p BR28LJkmAF1pKGrkDD4yYC TaZGEcSHMsUFR5RQFrCcP2 IDAuMiBjbSBhbmQgbWVhc3 ZrhA3oMZDgIbD0LXBaMiC7 VQLfPlBtuRNnyyRxM3iqXO nekIWyUGCwFFEhgJNbgD1g pdRtkzGwmFXbcPA3NCLfyZ 4wtG83ngDjgbBFLS8yrJms MKnftH0mWVHuXAKvA5Yudk PuMDfsTSEyhj3mgCisCKck NzQdINDnv0m8aHG6qVRxrJ E9eMOzzIhtAmWwSV3joCXp PN7jZYkyBIeztaBby9QhPF 57oVArjpGygnXfMzlww2Ih wBCqClwoDXXoWIAbb19tmQ N7bcJtVcN5LAAzUZQbfnXw DwT0ZW9ecRheqeIpd5P8IE Cbm5R3AKIyKP5soX8lKAey IHNpemUgZnJvbSAwLjMgeC HmOmNgnKImOpSbN89otJ6a TM65WHtgHN6kQDleOD3iUZ NtIGFuZCBtZWFzdXJpbmcg JY3jOXifLP92RYgnFG4hAQ YrBQpqBNCpR4NiU4W2DL3z VGhlIHNwZWNpbWVuIGlzIH E3Py8flHPbZFRtrgG2n5Mg VUekISKpGvynaG9xFSussn ZpW5vTNYYxmz8= MICROSCOPIC DESCRIPTION j7qeuNOkSTBbtOG7UzNrPM (test code = 3371) Tuo6zmi2NxlTBbtBStVZqn zBCttqFvtg46hSL4aY19AV 9iIZPpMlW6SEHxleP7Uel6 FTKgORRjdMTbU104e8nvv7 parnHgiPM6rXqhLPXxqjgm WbS6GEocSRGzecqfIGo6IR srDHWuzPN8KBVygGDkS9Ot AMPxHT6kyps0PYK9XDcjVU WuXhC9LXIhnFPmYXMntWwn JIopp481BLJ0GvKbNHYfsm XnmMwvmQ7vCgEgZWZUZDPj YA7fZJatP0llY2QjFHReGD pgrYyum3xlZH2vVV7sbWmv huSfY7fzrUJcgYFlabTvDe dxDC3gAAScdmayMMTuBh9c Bv8ar8umjejelWUkreAyaV 2cyYExiLI2bM2sFWSsjwJr s9KtunBvAV3isOPreAGjjQ UeUDJ7d6BfXIAxKNJpsdBh AXmgV11zuoC3GNdbVLIuAG 6gAY2sWByvcNovv0PwH9Ux hoCnbZZke16qQ1NakXHtgz VfqbSdr0NjkzHxyjLtv0N8 oF7nEIC4DXntga0rMCqnPC [facility] [id number] 18:24:44 Test Item Value Reference Range Interpretation Comments Case Report (test code Surgical Pathology = 104) Report Case: [id number] Authorizing Provider: Dewayne Wise MD Collected: 01/09/2022 11:31 AM Ordering Location: [facility] Endoscopy Received: 01/09/2022 03:51 PM Services Pathologist: Evelin Wharton MD Specimens: A) - Polyp, Colon - Right/Ascending, ascending colon polyp B) - Polyp, Colon - Sigmoid, sigmoid polyp C) - Biopsy, Gastric, random gastric bx DIAGNOSIS (test code = [id number] 3220) FuZzEwMzNcZnRuYmpcdWMx IHtccnRmMVxlcGljOTYwMV fnwdBtVQVdxJYaN9Mnxgal UMwzED5bTH8lkDrevVSgfQ GqGYPuGkZgq0iod109nZLc p2zrZQLSlxtsfEx0yZtcE6 1mp1U3TiikV37rzPWoDST7 RODeQKTbwYNfXLJeODL4ER TieQLjH4yfEIUmFX1uvxbr CNalVPblGPCdqXC6HBEjhB DnM6DqSGNzOGcjTWCvsmy2 GsHhKy8ssRUluBpxRYtgET LuIYMdTIpmQWUrMnOsZW4y U30XN69nYBJXL9nCQ9DDI4 SCAXzIKshrSR9AFYWMZ4AI FTl7MCOtrmv8BTVcYOXPEN LOKDOLYCEFCB1YALKgfKBw FCBjfwQMVgNYY8mMMtcuU2 lHQC4AFWpzLD8KJNDRU2EQ UYw2SZWwnzv3QDPnOFPIFW KPXPHKOZHDDN2BVVZfRIGn omzrIXQzPz8iV7IRQRFWSS gpV6eSOFVVG7CcV4KIY1zO MZRVQIPQEE9MO2gcjYWqSP RhYiAtIFJFQUNUSVZFIEdB K8IVE9PXWZrWFXGxkyg3RW XmWDHSNLcYRXtJYZ5PI19P VVQPUZNJCP4DWEQDRDxCDX 9HSUMgQUxURVJBVElPTlxw BRAaqXKrAX3rZfEZFXXZEk WoNu8DZZaWJUzTA3YBA0JD VmZGCAGJW16GM3BBTKSWSb NTBsSXH8JZZA0SRIDYLLzU I2swQUC0s6hcjOWnGVBtdS UxODAwMFxhbnNpXGRlZmxh dgrpQQOuSBQ7prUyEXRsRM rhYBIbUVokVu5xkAPchLks BkGqIZIwg2necwBLjuczjC a6r3ldPKHlJcG8yHAyTSse B5hyziXkpWKiVHYzEGu9nQ 88ECGtsW7epZKwWDeflpXr CeJ1LJxgRGMaJcI9ZTNnjZ TzRFQtS2dcMGVoJNrdFXKk UUkghEYlJXO2cHcty2Z9mK VzaGVldHtcZjBcZnMyMiBO c5VkURy7pWynN3UpJMSpVi O6hZYsNMVyCSerDYVyENYg mqJ8mM61FInhbeX1lEOgy7 Hws31zu466vV7shAYbRVW3 XMUmJKOydMVvYLOmLVB2XF WjnBQsO5boXJGzAF7lntow OCvlAFnhSMRqcPN0ZMPxiB KmS8EvMLWwDQrtNAPwlsn2 AlZqUd1yhWZqgLsnFOmnt3 qec6evzMYeYgr9IDDlMnZu JlqmSPgrz9Yhh1deGXSeak 5xFDJ9nNEloZwzq6C6lPZv CWFdoABhWZAkQO7skQUnFT BuhG2glbbcANOuTnPzkqjl RYKamXzmeqWzKd9jeVtdMU K8EBczY7wvuM9jUnU8VYoh C4cgtD3lPXw8QJznARPryQ J4vrD4GKRtgIBlY3FgdF2h WLDiKZ9mmty6r3cwPBG0IG olYKHbVwZ5mgO3KNKxkTVt BUGxeBdpSVgxn519RUG3Um XjPFYfl0XfF3OrvJahV89q oVqqL01pSSEqfNccgD4tkM itpY8rQxAlEdDjVVkvdGfx NJ3fIWCeM6vroSGuDQQzWQ WqM9qhOqRrmU6ewXldPYmg nrJjSMJhRox6BAZvsFEbIU AmWex6LUNnCJIoI98btdlq JXP4oL5of9sdp3UgNIcgYB E4PUXxr73lHKaiwgL0QIgs Sv09AHjqCZH7FGjwGBM8yD == CPT Code(s) (test code r7kuwMMaZIHrrJZ0NuCaXL = 3357) Qlf8whz2BlxTRsaDTgUUrg pTTtiiPmwq18wLI5wD75PR 0bPXQgLbV3NKUpetR9Dnw4 RMGrWEGgzPBcT577b3kjk3 xkrdNpqWQ5gRtrNSHsjmbc UtW7DZitCZNnugapEJp4NH ajKJCdfBN9OGRotLDaJ1Cw JNOfHU7ieyk8NYT8XJtzVJ KjHpL8IWAauZNnEFZvoKnb LOsuh417QHV2VmSbQDMntf CzpWzsiM2qNlNhQMO5EZQl NVgzXHBhcn0= CLINICAL HISTORY (test e1dfoTFoNADgtXK8NbWzBQ code = 3356) Rwu2est5AleOLxyLDpKOiy qRRbruUwac45nJY2uK23QQ 7nHPWrXrL2QMMaamY4Hge5 UQZuAMFrhQHaS990j4nff3 kfeuMbpJA6sCzkKXXuuvdu SdG5PRvdAQQerekkCJi2MO ybVFAxvIC5ZQZqlSFvM6El YCShKU5oqyv0RHY5XYsnHG MgWnT1ROPngZFeNLSceGpp EDywk439ELY3SqCiGLRpgh IegXvymZ2tLsUcEHHPMNY4 za5ts14aaXOzHNYyTFIeNh c2jXMgaUQxFWXxONAdt5g2 cXQcGuZnq6qvpylbMJQ2 SPECIMEN SOURCE (test f0ofaGLoVOCgdWI3WeSmAA code = 3377) Bvf5alx0VarARxfUAaQVri uNKwskYpxu09tUH3bZ44YT 7pMTQhPuS6EERtxaG9Ozj1 KBHmKIJrjFTjM150p5rgk0 gooxFerKW2iFvzHKEybgwx XxX2QFmxAMTypizmJMs4OM qyMHPnyXA1BZWtiIRpN5Ns PZBmOH4goqh1NTQ9BJmhKI LjYiP4YZMvlMRuWEPzeJae UYlcp286AHM1InYbKZOchc SrdDbxpO4xPeUxJZMQDmZw RL1efJFhVCAuoW7tDHCjN8 a1K3KbY6PbMExfS8ngkC8q LEDtUKPLf5t6mSrcB83qi5 4nh3yfsN2aFNexwU3yMTYw LSHEzK5xd3ffOUxtn7GhcW MsIHJhbmRvbVxwYXJ9 GROSS DESCRIPTION (test i2cwwLWlATDljBWbDaZmFM code = 3366) KmNAWwv5dyKZRsgZKdJhXz MzNcZnRuYmpcdWMxXGRlZm Fxz9hdm385fTXlg4boAWRT vucwkNe1l4akTMMeCsR1xS OnPSweM0dnubRppSZfGEVj YUo8fV95UWVxdU9bfWInSS qaexCtRgM3VIuePADmBuJ5 NEKxwSLvXPJnC7xgQKTgNH fxPDRyHEpwyICyPSY9zXvf e6G3gGDixLDkfNqePrLtEy MeCJBLq0OjYAk8tCtbB4Rh SSClJnM4yUTdXMVzQZmpHC XoFOIqboH0mZ42ZLqjhoP0 fMOla4Jbe83iq518pR8kgW BoOVP9UQVsGNSdfABlKAXd EEC9XWNunOZhH7c5DyCfyK UgW3Z7TrIhgIVpF5A4MbCe aYXkR4M8ZeZpfHMsXNQhvS EiSe1ijYMgxIYcgp3onc35 INR4q7DsjSunYPQ6ZAH7Ul BjGi7ynUWoPYObUZOarGCt DLAlRD5ihSKaRLPofK3kbt xjXHBnYnJkcmhlYWRccGdi thQdZz6diQvyKGI8RZqoF4 pkzI0iEsA3MUvgM4souS5g JAl6ZZhzlEC4XARfqO2zSQ 1imxabc3zaQgZpOB7xmvub v5lrLnWhNL9syjz0x0rxYk AbZA5eaxjrb4vvTxUnEZkq YUVbybjaIDMtg2OuorrlZX Agh5ZlM0UcjGqwS95zbVsf U72iVIHvuVxfuK5ykGqesI 5cZjBcZnMyNFxwYXJkXHBs YWluXGYxXGZzMjBcbGFuZz EwMzNcaGljaFxmMVxkYmNo MUYgAFvpW8whKnUhXxVpNP BBLiBSZWNlaXZlZCBpbiBm b2JmLRhsomMtELAanKFuXK dpdGggdGhlIHBhdGllbnRc F9W8cqTqVJ9uUMOpTOUyK5 WdVFNtZ72aFMIbkW5xVXUd EE4jFUOzj9ShbjIklpgqU5 5el40foS6afAEfCMMpZZFx q00txVU1vfUcCpNzFOIgQD CuMI4bWGSgjrJmk8L1KJXv p7V1DCXdOJWvnSHbzlxxYA 99EPhxVQ09JCdoLO0xUZVs ZpKYpUCcj5QwS7nlBL5arO Iql6CfsHd7aKDkLQvvRGOq yS7jpS4aTQQuCPnxybChqF luZSBCLiBSZWNlaXZlZCBp mtKqd4SmNBjhtlQnWJEzjF VkIHdpdGggdGhlIHBhdGll frBtH7Q8omEdTE7gIXKrIZ UkY4NiSTCbS31hQROfaD7c OVGwPT1bKQYbsTlxq2gsLJ UkhN6mODQehKqiKqPqhoWe K34pt5kmmTZlm5LbPuLyqM ZpLSWlz2JidBCkPWUkmeeb r05zkUX3aIDyoGRmvjYgY0 nzKdHtqqWcjBswEHTfr48m IG83HFbwDX1cTBcmSF7gYP KrZPJpLYToQTB9GWFhQjY8 IDAuMiBjbSBhbmQgbWVhc3 BdyL1vSZPtKrD2EGGnJsC2 CVKuRxIirAGdjkIjQ5ttSF wytWOiSVLpCPEotXWeaY4o ugYfczWhiWClfPS8SGOgaW 0sjZ35zfKzwhDMXF4izKar KXtnuK0sDJLdBPVwU4Wyjl JcDYtjPFIbhd6rcDcyQIsp RkFiAUCry9a6iMS9eIPmxB N7mTLjyHrnViUpAC0yvDFg RT0eFScqPFljblKxq6SoKU 60pZJhcfQlssNcFmcmw2Ff sDZoRkydHQUdZQPrb52tlR Z1pnDgLkQ4GGBxVZCgotFh HxK3MJ1nuDgodkHli4B4CU Tmq8Y2NWQxGT9fxW7zKFmu IHNpemUgZnJvbSAwLjMgeC WeTsCufRPjSvQcW22ieG5j OU98RQiwQG6tZJvqKV0nRR NtIGFuZCBtZWFzdXJpbmcg SW1mVUuhLE56ODhzLK4rLX PbAByiJJZbC2CxA0R5GT5z VGhlIHNwZWNpbWVuIGlzIH D8Ue3acROtNZJhxcO6g3Dd GOtzRPMtHyjjaM7rKFclpn MbL1uDLWNknx9= MICROSCOPIC DESCRIPTION t3jcuCSvCTTlzIO0XdEhTK (test code = 3371) Lbk2bne2YdnMHyjPIyLVgg tPStpsDwep57bHK3bR33PR 5kEHPoXtT0FSSwjsT0Cvx6 SWHvYRUzqNGpU455s9ryl1 dplbHziCE0gCijVKEfrynn UjW9LQxqODSsatgmZBp7CQ tzMJLvoWO8VUCrzEImO6Xa UHRiUC9qfxx3QRU1QSndNT GjGdA1FJCzlDWuDSPgbIrv OPckl743ANQ5KvIuOFWnen YaaArfrG1pXjQmXPOMXQKl VW6dPExaL2gcN7ZpRGZnVS jjoHtbp2giLX3vAE1wmRwl jxIbQ2ggeECgrGCozeKfGi tkDY1hOLWagiffOUWkAx6r Cv2zj1lauvopnWKcmpShbA 3akHBkfZR7kO1qCLLgywTq c6QrawLvZB4nxOPspWVxbV ScDQI8a6CvRESpDGTgkkCm VXivE57zlrJ0GJnoGSYhJO 7kUD7eSMsxmCwma0UzJ8Nz fbUovXMjm71iC9TulWIkcq VillNvg5IbfaIrzzWrz7K7 kY1wBNG4AZfhuh2dSJugCI [facility] [id number] 18:24:44 Test Item Value Reference Range Interpretation Comments Case Report (test code Surgical Pathology = 104) Report Case: [id number] Authorizing Provider: Dewayne Wise MD Collected: 01/09/2022 11:31 AM Ordering Location: [facility] Endoscopy Received: 01/09/2022 03:51 PM Services Pathologist: Evelin Wharton MD Specimens: A) - Polyp, Colon - Right/Ascending, ascending colon polyp B) - Polyp, Colon - Sigmoid, sigmoid polyp C) - Biopsy, Gastric, random gastric bx DIAGNOSIS (test code = [id number] 3220) FuZzEwMzNcZnRuYmpcdWMx IHtccnRmMVxlcGljOTYwMV enqpAyVMKvnOEcG9Jmitud NQyaUZ2iIA3owAqbwDPovW DeAEGmYfYxo0dye223vEFc g5bhSFRCpsjjdBn2nZixW0 4oi8V3HcevS59qoAJoDYW4 GUByXJRmfWThCVQiWSU6MQ BogPGpN2oyIJXtCN7ttoqe BIbfYTmmDZSdtAY5INYjyA HxM7MbKFTmPMrvEFFhufb3 LaLsWv1byUBiwFjsERmzTZ HvQGElVUumGKJfZuDmGU3t J15ID13mIFKRV0tXJ2DSH0 YFUBaGZmozXN3QQAHUO5NT MZn8WDWmqxu8EZJcJSDJXO CSGCICYEIJLC4QCUGhrBSp EPGlspYAEbGQG9yQNwmyS0 uVAS2PJSelNM7PEHPBV6LI XEd3ZVIrjak9DSWcLUMANN LJNEWYIKLMNK8AZTBaJBJy rmgzFRPcUy1lJ8TIWLMRSE zsS3nKQWOFV0SpR5WXD3yC AVMPTBASSS0UK2kdlOZbPL RhYiAtIFJFQUNUSVZFIEdB L5HHL0UMZJaIAPQegaf7AP CyBRMEEGvSJNtQEX8BN43B BLBYFSFGOE3FFTJBQSvXVK 9HSUMgQUxURVJBVElPTlxw MHVwpEXaOT7zFiBSTCPZOt JqHe5NGTvSFPuSM7SPG7BM HkCQRUZEO56EK1KWTCWDMu FMUwVJL3JFBL0UCOVUNZrW F7stISF5x8ldlNFuMSWnsX UxODAwMFxhbnNpXGRlZmxh sojsLBBwMWJ7fySyBVXgWV lmODAeUUniZo9wmLAeaBlb GyPyADMmw6abxmDVwmctmI h5c9csYBRwTxU4gQNaONuh W7gczpHieFHcVAWbVLh6iL 94GHJxjK1sdANnBNqcspMg WsG9YPvtUWBnDtS1ERWnrN QmUUGdP0xbBJVwABbkOOJy MLyztVMaHQD7fUwmj6S8iG VzaGVldHtcZjBcZnMyMiBO n7HgRKa8uVivQ7QmVBQrLm I2fTYgEIGgWLdoKJXnHHLw czH3kP98UDicnbV8qRXku5 Alr92lu608iU5ndSWoJZJ5 LGAtJPHpmSRbWXZeUNL1NB GnrXWcB1naRCDeZR2mxvyj XJoeXOksNGRcuYO8NLNfvL BuT7OzJLRjRXecHXYacqt6 RiYjCt8ikCMmcSrdYFqvb0 esv4iywGQhPxi0DXVdJvBz JctrRFvmo4Ijs5bySDPazu 2uJXM7hYVxeCjsp8G4gFDu NLHorWLbNODlAB6ilPAzVE KlrH1ppilwBXLtUaAnmtfo ZFYkpRelivMdWi1skYvsUV L3QGuaZ7oxhK9vByY3EUug L4smgI5zTEo1SWbiLBKyrJ A2xiS5AHKzhYFiF6WjpC5h WGToZN8rtkc7m5qhENX8BY ofWECkHxX3maE3UZXrnQQl NHIotIjyLOrhr441OVU2Fh FqSWIal4DaL6WkbZmhZ21v wEjvK42jIUNbkKorfV7kyW dljT8jLfFnNmBmPTcciOkf KX2nILMbN2bmjSQtMQViYI SkJ6tpAtNldL3fbOdtJObx bqYgQVAaRjk8DFVbbTGoYE YcXuc7JMDtSINwE95yhxud HZC1uD7yw0wwz9GlJXaeEG Y1PSLaa64bLBsudnS8JApy Kr61XCyuZPQ8AFcsCKU4qL == CPT Code(s) (test code w1fqpGJnLDAnuDH6AgZpBD = 3357) Kfs1udv4IosIOqrIWbPEjn uPAjqmXras64cII2hM18YZ 7wJMWiBbP5MZEpqpY1Ljh2 RNTfHWTdkROmJ102v5vii1 ayijRqtWL4eAcdKEFlbrkc LjE4RTjzCPAtsjurAYu0CL nvMXXaaJS1RFRwbDQsV8Ic MNLkGE5xcpv7MZL1ICxtKB QhKaM1MLSnhDBpEWHkaKaj HWrov391WEB8ZjNkDYFmlj FltSpjmG1xZuMkIIQ2WILh NVgzXHBhcn0= CLINICAL HISTORY (test i5bfaYJqOFNuyXA7SdPtTV code = 3356) Zqn3tzt1PysKVygRZtFIvs dLHfveRmkg91hWY5dY40YO 1qZNXeGvW2WXBrwxY9Ocj9 VTBdZCDlcYEuM028r5pcr3 atucNarWV0hAmtSUWxetcs WgW1QGytSVQpyugzQUh0OT uqIIGfySL4CZCboWGwL8Kv FXDlFB5mgof2ZLS0ORayXD DiRqM1UOMykVDrJCRrfAzs LObzw041PJP5GcAgNNIaqx NzdNjbjH7rNwFiVNLEKBN8 ri2ns79wcJPoCIZqJSKzYh y7dRWnbWJmAEZfXGPmc4g8 hJDfNtJyx6dzbvdbHTT8 SPECIMEN SOURCE (test u8qccVGrKQFkcFK6NlDpGF code = 3377) Wld4dxy5HnqMZobZSxDYlj zCJyfzZjom45eCD3fO57XX 6wUWWqOrB3VMSougT2Vlm4 KKLxANWqjQQdO245q4vxk6 dhmyQxwSK3kStlZUCsjeqk LjN7XIvdBGXsrwgcPDj5UX siLBEvxVN8BIGprKXiL9Es EUDcMC0tcnb1FXB7KFiiJI PzQhH6JCRozQUyHGTeiGlp LBkcn967RJS8WyWsIIGrwa PkjOseoI7pBdNfRPDXYxPa XB7gcURsZJVavK7mQLYkN3 i5P5EhD5YxFBbaA6hdbC5g ENWuZDGJi7j7gOhyV80br2 8ep2tbwK4qKCtdrD5sMEIn KXEBsO5uh5qpOSsew7VjzF MsIHJhbmRvbVxwYXJ9 GROSS DESCRIPTION (test x4mnrDZnTKIhuPRtGxSwXX code = 3366) AvMCTyj0raDBPutXWeUqXu MzNcZnRuYmpcdWMxXGRlZm Jcg7fly591uEVaq3qdOQAL ywiraKo4v0ynIKBkBkF4cV TvTLqqC0etvvMvcWEhHOZs RQp0xD86KWIioR6wlEEnGW kdcjNbPcI6DAdgSNPtPyW1 VBShkDJoRORhL1ykHCPgRX drQBLtPUfyxJLlRUZ4hHxa e2Q8bILriTHjiLzeTuMfDt DfEYRWp3CkNZg2bIabN5Md IPDkCcW6bRKqWPRjYEagDE VuNBTaxjU3xC70XGdqxfU9 aFLnk2Lts06vy696kR4ssI FlOOO5OFByHORruSUnMMQr EKX3CKCcqEOoU0d3StPgeN EqE1O8ElOnzINnC8U9DvPo bCLfN6Z0CeYtiTLjLHUtwZ CiRp9kyLOafVLllb3fuv93 IJV6z0ZvuMijUHJ8FGF4Nj MxPd5vjJFnTZGsBHSstIAc WSTwBA3jnAXzSOMudW2jua xjXHBnYnJkcmhlYWRccGdi pfXzNz2gnXfxHVW3VMszC1 assJ6pRsV9ABnaV8rtxO7h PQs2SPhlzLG6YVNveP3zDP 9ohqpwz0gdVrGaJG8szfie h3txWxPtRK1tetj8b2adNb OuTQ5nguugp4ejCrHiDTwd PBMlaacrNTMnn6FmufglIN Yit0XxV6DspEitN44bgCzs A40dAGKndOsbcS5wyGrmwF 5cZjBcZnMyNFxwYXJkXHBs YWluXGYxXGZzMjBcbGFuZz EwMzNcaGljaFxmMVxkYmNo VXPbNLrjU2bdXmVqSaUgBZ BBLiBSZWNlaXZlZCBpbiBm q8RrEWrcsfVfNRTsmAApNN dpdGggdGhlIHBhdGllbnRc M3X5mfDtYC3kZJHcMMKkZ2 GxISCrU52fATGqvA4kYYSt SQ0zZKUlk5MkjwOgthsrG9 8ep00pbL6fmSFlAPByKQVn j08lrNU4xlCtGiKiAKTfJJ SuGB2qZGSydcVoe1H6HAGf q2Z3QLIkLLAcaZVuopuzMU 25ZRhpCP00WMheUR4iPEIi VsHRpIKpo6HrP2vfOO5gaW Npo2LseAh0eGRcJNjqDSUx rU6okY1zGBQbKBoaljGdoY luZSBCLiBSZWNlaXZlZCBp vwMht8WnRGnawtOmRXLpiA VkIHdpdGggdGhlIHBhdGll vqUwY2Q1aoLoKR7mWBXgFW QnZ3TrTIFuL48bGKGuxR3o OQAiBA0dYSWaiEciv9kiCZ FsoQ1xBLJkfHnnNvAxzbNu Q73ed9qefUDdf4ViLrLjuJ RiUGEnw0ZvfXJaDIDkjmxc j01llCK7lUAebRXfmiQvE5 wgIiTitgSxbDatZXYoy07m HL41LSjeZA7sUDjgJM0eSH IqELLiQREzTNH3WLPtSzV8 IDAuMiBjbSBhbmQgbWVhc3 QqtF5lVAMiTsL7PCVjFfN4 FMHfFbPouDCwrjZvC3hmMN khaIRqQEXsHVYqbCOuhI7i caFzpdWgvNCikWU2WHDyrN 2cpD98rvEsgwCMTK8atEna GBgomA3iLJUvQVFdG5Pcbt WoLCmoKWXnpl4ppFwdTZmx IoGiYXHym4d9jTQ4oFGquV C8aDZkyEibGgOcXO6jmGLr WJ4fKSvfSQfoxfBsg2BxUX 20gSWtotFdiyJlCyghb3Ac fCTtCsmgLDMsXWDdz35zjS W8ajPcMnO4CHNuPEFhvsOf WrJ9OA5gxKkwdyTte5S1PY Vez8O8ASYjOF2gjG4gHQvb IHNpemUgZnJvbSAwLjMgeC DtFtDnzTOeGsCyQ10pnP1w VY35MXdeFD2nJJwsYS8tYJ NtIGFuZCBtZWFzdXJpbmcg XO1jMMasEJ69NHxzXT3cUZ DwHCbhOIXrE0WkJ7R1OD9o VGhlIHNwZWNpbWVuIGlzIH L6Rs5aoZChZDPilyC2j3Os HPhyYIAiLmaqxP5oCOttai WqY1tBPPUflk2= MICROSCOPIC DESCRIPTION u9eysUPnGHYndRL6PyRyMD (test code = 3371) Azp9zmn4BbwDBhzBYjJFey uIEsrfAydt90xWV7hL23TV 7dNUOeRbB8JAHbwjM3Lrv5 OQJrZCIenLFiR780z0feu9 xussDzaFA9bUniVCYdnqae WyJ5WDukXSQcghglHQt0LG kjWDMikUT1FLLlaBYtS7Ge IXPlIQ2rlrd4QEV7TDtkBG IpSgZ9JLSxmEVyNIMkvSrs YUico831IYG0UnYpSFQqzi OzbLlvhW2yPaPmYFHVYCGt SW7nSTyuR3fuD0XqCIUmDD ikrBgvn2bqUY8kEY0jqWvr ngNvY0qyeTKexFZcnyQpLo ppJV0iCAUtoszvZCJgOf5f Js7cx4zqoqzkgVHeorTyzK 3kgEWpyOU4uU9tOWLeymXx r6DkktSdZP3isICjxBMrsD IkZEH6f9RaPQHtYQFpsgJo FXsbM90jpoA9CCufFXRfZY 2rBM6aTUfkdYghh7ViO2Ks cwEatPKph10dF3DmnNKtmx GlrjXyx3AmruItnxVdw9G3 aA3wWEA2YVhhun2uRYgwBM J9 [facility] [id number] 18:24:44 Test Item Value Reference Range Interpretation Comments Case Report (test code Surgical Pathology = 104) Report Case: [id number] Authorizing Provider: Dewayne Wise MD Collected: 01/09/2022 11:31 AM Ordering Location: [facility] Endoscopy Received: 01/09/2022 03:51 PM Services Pathologist: Evelin Wharton MD Specimens: A) - Polyp, Colon - Right/Ascending, ascending colon polyp B) - Polyp, Colon - Sigmoid, sigmoid polyp C) - Biopsy, Gastric, random gastric bx DIAGNOSIS (test code = [id number] 3220) FuZzEwMzNcZnRuYmpcdWMx IHtccnRmMVxlcGljOTYwMV pmvqSmBAGziXYiI3Dqkqkt GKdnXZ2tKR2jwCbqgVOlzL IiBJAgLaSnf9krp710yFIo j2ubHZPUubzuaGv4aPjgR3 8do1F8HehjA14whAPdBMN4 UJHwKGPlyLEgKYBlBBM4YI XpxGPnU5pkAMVoAL0unoag MGraRUqiVTKakCZ7RSQwxA TyE9XzPZTmCLstCHUsodt8 MbZaYb3afOOnkJgzXVcdMN SeXHDnCCglOSXsYiQtUI0j F05FX08kOWHON4lOZ1XAR2 RXGVlUHpepPM4EORPVE6RN ZOt0CJHbloy4PFUkGCPXAQ YWUKGPKPSDQB0MCJQaqQSm UATameMXYzPVV3sDLkiiZ6 yLEQ6LIUzqCL4CMBHUG9LS MKs4OFNqofe6NDEkVNRKAA LDUZZVTCPZTN5NYIKhISSt qpvnYJIcMc0tE0CYMSKNAL pyF1gCSDBUF4RsE9UCC4mX OCVXAHWGYV0GF9dumXEqOI RhYiAtIFJFQUNUSVZFIEdB B1RBA7AEHAhTLQTmgab7ME RjBFJNHMoVCOpFTT3OI10L TAVBZXKMPP1WFITPRVdZEU 9HSUMgQUxURVJBVElPTlxw MHSrbZDuKF7xGeRJSIREDh JjYf4AYQoOJPsLI8TMY8KI VoHHYSKGQ37PE1SJHCVATx SERpOKH6YOOY1PWIBEGNqI D2znPBJ5f8jcwCPzRATogK UxODAwMFxhbnNpXGRlZmxh nsvcVSZmGRX8bcGjEOLfHP thXFCvBIxaGx3iqMBmiSep IgCaWNKti9hexxZOsdzfdO s6o2htSFAuUfS2jLNlRScz Y3uulhLwdWMkNYUbVYa0vT 28CPCcjB2dcEXdJAcxljIn WmA4ZDwdZODaFgC0RDOezU PvVDPiX0opXABgTIogAIDs DFiinELpUKM2xGvyf4O6kJ VzaGVldHtcZjBcZnMyMiBO c5FhVUf5wWyxC7QuIYIxUa I3bNMvTJBrHOlpZIIcSDWu veR1oH79TBuduiR4kUDhz7 Fwm48ff142fQ7enESiRBZ8 KRRdVSTnlOXoPKOxDXE0MS OfxTCyA6tcKQZgBW3mhsfh BMigYQfhWSMxvOA6OIGnkU KcB2OoBHPkOUitOZAtalp1 DuJgKl0rdMJlzBhgAHttk2 pjs2khaOUfPst3KXEpDeKu IpnfTOjxa2Tcx9uxUOVonx 3rYAW8vDHkdNcfj9X0zBUe VTAyxVKtGLYfPJ6pjBDtQY SjwI5mafjyWCOzVmOtabue PSHoaIjkfnJmEe4nkYykPD O8DRacA9nvkW3dZfP0CBzt A6groV1dSDg6JJcaTKXxjK P5ngO3GQUdgTDsH6CzoG1w PNCoTP6lpev5n8fjNFQ1OM wyLELyZvH8evX2SVSavMKy XNPfzTvkVFdxr524AEC6Tz SzSDIhq8GyR9VscNeuR94o eQnwJ01jEKUsxTdrrG1qxJ swsO5sUbKxGhAfOHvtjBpj TA3cQOScW4zxzSWxOJXiQU WdA2fuDaWadY4ivParPGoe bwCrIOXxUol3BCWqbUBsAK BhXir3NWKuRNIpC63tuaoi SSR9wK8qy1hra3ZzKPzrDG P9CKNqp49cVCkoveU4MZdh Wx21PIjiICE5ZHplNTS0jH == CPT Code(s) (test code k9lhmQIbAVCbsFY5SyIxKX = 3357) Jgo2blg9GcaPIxtKDfUQyh eIWzblXmfo66bEK0lA22RA 3oBTVvQjG7LGUojeI3Wdg3 QRAdSWUsxVIiU709o7glr3 ggskDiiRT4mEjgHSVdyznt SnT9GVdsHWBhlnumRHr0ZW ghNLAvbSM6JRPfmMHvQ7Ru PLGxIK7ifbi5KBV6QIziFB GcXxY9DIJhrRMeQCRepMpk YJion651KVX4GnJoGZYghd HgtEsqvK0wGbKaPSU0WAGg NVgzXHBhcn0= CLINICAL HISTORY (test b0szvYNmPMWcrRU7CyYjBK code = 3356) Rne7wfp5DteXOtqGCaJKsu lUJoveEsaz28hWK0qQ01NI 0lRILwQqW8HRBfgqW5Hrl6 EJWnZZNkrVDaM437u6cnv6 yzhvGwhIS9hOmiKNKeegqi OaX9YRmmEZPptoksDRq3MY kjIEPtoRL3MGAuwVPrR9Hc BEBqWM5qmgw1GBW4QSbxKI FlAkK5EROefEGkPQRjfXyf TPzwg877BTE0IzYxPHRidw NgoAzhgW2zAvSyEOKSGOC8 wm7ak01aoRCwNPLaLFZrBk h3tODjgKGxOIJlFSHnk2l5 hKEjOfJvo5ajwnmoOTE3 SPECIMEN SOURCE (test z3dmmXBkNCXuzZN0FtXkDU code = 3377) Uve9vgg1EnuGGqnBJvCIzx yUBwfiBlmp59oHU8kG88JT 3gEENrElP3UEVxphC7Ads9 EIPiGSXmoTUqD846e7wbt9 ikgzYhsNY9jGhxCLTbwsnb GbS9YLloZUYzwwkbGWd4EO ijNFBmiUD5EFNqwYMmX6Ai KVBqCN8mmlo3ABC7UWmdSD QwAiE7BGSiaOAaLSXgjApi PYusc364YII9CoMbRTUscj VmvCmfjS1mRaLvFZQHSaDm EQ8yqIFhPEEzjD0yUTDsS5 r8O1AdN3CaACsvZ1kurU8r IHGjWSFEm7v6iZfeZ35qs0 0pq0dtvT1tANiseN9mGDJi DEKRlB1vl2gkTPmxo2UfeB MsIHJhbmRvbVxwYXJ9 GROSS DESCRIPTION (test q7dcnMWaGSBepMIrJbJeNT code = 3366) KfSNUia5vlSGOhjYOrNmYb MzNcZnRuYmpcdWMxXGRlZm Lwp0jnt029xHGny7iyMYKM tjynwDq9y3lpUCNfXwL3sB SuCGgfF7qswlBjtHYaMYGv YVo2pQ49QVVwzH5slVSaNJ ywdpHkTnC7ZJhlTQInJdL2 RXZozCUpJBFrS4aiPHLwSX ioUZJfTSuorOYlQIJ9qVcf u8D0wFCrtQRinYcsGnSdGa HtHTCCa2LgGKo1zVatL2Le FGUnKlV0hIFbZVYzKWxnWN OvRMMtpaZ4zV31ATqrdwU9 wTNom4Dcz46zh080oW4adJ HqLNE8JKWrOLEghHHnIYHp FLL1ZWKhbKJsN2o5XnAilJ CaR3S7ZvWtxEPrN9C7QiNu jGLgZ9V4WiJtqGGxCJQktI OeKi4zeROkzLSutq8pmv60 BSZ7f5CzuAaoEHB0XGX4Gs AnZh1cgPRiUMAaDFOhfIIq CBXjGH1ymFAwJFRxyL8yjq xjXHBnYnJkcmhlYWRccGdi kzGyVj3hwCbmQHY0LTikJ0 cgcW4hJbV1ULpeJ7heaH7a CLw7DDpzzVW7LFWebN9jUV 1tyrodh5wnKbJmUW8gdzds e9ovBaPtLM0qigm1j2lrXp YiAE1ehopbs7exTqVjQRje XGJldmqvPHXke9DtxthbUT Pyz9CyX0GyzTbxA41krCne M62lAEEflLyecE7kmBnxxF 5cZjBcZnMyNFxwYXJkXHBs YWluXGYxXGZzMjBcbGFuZz EwMzNcaGljaFxmMVxkYmNo HBKmMShpH0koKrUaEaEuZA BBLiBSZWNlaXZlZCBpbiBm e2CkOEntowGtBLGytOLjKW dpdGggdGhlIHBhdGllbnRc K5L8vyRqAY6lWWExFGLmT9 TwLDNlH30qWMFymK0eYZWi WT8vWQTod2HogmLznkdvN5 8kg81cfN4iaBMeWDQzBWZj y39wiWI5kkVuDfLkBAJgLK GuWJ5bICPjcnBjl3D3HXOy m2S9SCKiFIFyqFUpsgxjDK 00WIxbBU23NNmrYX3yTUXx BpPImKDcn1RsH8zxZW0slK Tef8TktDj7rHCpIThjQTYd hY0srC1zVGPvZTkqjgQusU luZSBCLiBSZWNlaXZlZCBp adWsb2BxEPxnviInCLFhlG VkIHdpdGggdGhlIHBhdGll wvFtW1D8oxYkYU3zGWBhQY HaZ0DdHAUbL98aEWKkxW1f QGSfTL5nGFSfkGqod6csCO NlkM7wDVZovSbtNwDlkbIx W47zv2pmlTPko5QiFuIzbB FeLNYqk6VykWNnDOPqcxtu f56juRC0wKIsgQIuncMmV9 xdHrWnwwGuiIndOKGpe31f KE34TCnjMN0kOAbgNP5hAJ QkPHUzTQCvQPN2BIDnOyL0 IDAuMiBjbSBhbmQgbWVhc3 BesW0wLEHgIuC6DPKfJnW5 UYJoVkWcyOUfegZtQ5jgXZ ehiXWzDAKfSWWxkIWxfG8e alMwnrLssGGanHJ7CWZjfF 3iyP74fzRzkoQSOH3mmTiw SHuwwT2iXWLaMSWjV3Rzrt DjKJwxLGCvbz1piTzoBEqg XaYhKMTff1v6kPO0vQQcxG V0wFPltLisGnXoCE5soTLb CJ3qKXgaRGdicxXqy3IoKZ 12sMNtmlNhltJqPgoec0Zj tQWdMvchBXQsPQEuh93akY C1fxHkPcE5KOQoAIEiloHx AfG5FK3ieVvnsaAus3M4TG Ccc7T4QEHlLB7geI9hTFcj IHNpemUgZnJvbSAwLjMgeC EoPiHocQOhNpWqS94vmH3k BV21FIpbYT1xNTpzIQ9nVM NtIGFuZCBtZWFzdXJpbmcg OB3iBQwxTR97NKlwNI8gWK GwEJjmLUCvQ6PbR1T1IE1i VGhlIHNwZWNpbWVuIGlzIH B0Of6zxZLdSUTcxnP5w3Dm LJuwHRAvEcnvdF7jBAalop IbZ4zJEQSnzx8= MICROSCOPIC DESCRIPTION r9ilsVIeTDOlyMU6DxGhKZ (test code = 3371) Usa0eew9MzpXPnwXJaPFsg tBSgsePgvx29yGF7uQ85WQ 3kMPRdZqT8LIVmcyZ1Fvg7 ZSUvKYFokSOxK908w9cbl1 pgdoLvdVB1yKedDTAtqsgc McE7CSaiCVQhezabIDi8CS fgNCKgyFX6KCFzhBAoO4Ks FKZmOQ4wqed5ZJA4XGyiHZ PdDzA3UQRvuMJmGZMelKwr GOuvb278OGC4FxCwFLTzqr ZifVvyaE4nTmPrBKLUXTIj FD4rVYxkO5olT7RbQTWjTS bcdGypk8jtQF2oHM1hoWlm bqUdN1ugqYKifDDwukPpAx noLM2mAOTcsmwmJPPcHo6w Nr1vd3yqqcbwuZQbvqYkcV 2xgFXhiCX6fI3lNBPuenTk z2RogaLaUW3txJJboNVttG WhDQR1w5UhNGLlZRFnnmEv XJmaY44sbnW8UEziEZGoZB 5bZQ9qJVhgfLpjh4XyA3Lf rwJpnQJki72wT7ZuoUIxmk DbipYdb2CdvnLmfkDdb5Y4 bB9hXPN3JIffav6qPSdpBI J9 [facility] [id number] 18:24:44 Test Item Value Reference Range Interpretation Comments Case Report (test code Surgical Pathology = 104) Report Case: [id number] Authorizing Provider: Dewayne Wise MD Collected: 01/09/2022 11:31 AM Ordering Location: [facility] Endoscopy Received: 01/09/2022 03:51 PM Services Pathologist: Evelin Wharton MD Specimens: A) - Polyp, Colon - Right/Ascending, ascending colon polyp B) - Polyp, Colon - Sigmoid, sigmoid polyp C) - Biopsy, Gastric, random gastric bx DIAGNOSIS (test code = [id number] 3220) FuZzEwMzNcZnRuYmpcdWMx IHtccnRmMVxlcGljOTYwMV lnzkJnPBNwfQRcB6Utwgoq QLhvNU5bMB1gzPmjaICirN MfWSEsZsLbu2swb874uXXi b8efGWECyuftgXm6iJyjK4 4kk0V1VtodA29vcLQzSYN6 YYIjCYPexHXgVLXcCLK0IX AggIKgF3viJONfZQ0friua QRnqWUxeZEGauAL2OYVyzC DdK8NzMVVfMKjoLQZtump0 HoNrYa0wcXPwyMhdQTanZS VuIRDqEIcnWJXeReSmAQ0z G65EW12kMJEZV0xOZ9OAM2 TRPAdBZracCW9ZPFJLC9KD SNk7ZAXbifu6ZXEtMYNAIC OAEXOVIRXPAK8OZBZabQAd GVBfraIVUqZUB2fIIpuzV2 zODF3ZHNyiTR6ODLURD1ZP EKf3LGCgvvi7GIKfNCLNFB POWEOAFFMPMS6MIMHlIJTd rlbnCKAxLr1oP1LKYLLHPL teE0oFRXSPY6FpW8NOO8jL ARELGPLHOT4HK3wccAGbTS RhYiAtIFJFQUNUSVZFIEdB Y5LUM0DNCZsPUTMafxw9FU GbYBRNYZgUBGkGNE3LA49G FNREAMAHTW6EEFIJJOjVQC 9HSUMgQUxURVJBVElPTlxw EFCczTFwAO4zKvHUXTLXIc CfQn2WAQlCOFiYI6NMP5PL VeUTXJUAE31YF2DMLVWMAx SQWnWWQ5LLLZ7UVEDCXIhQ O9xfFHJ2r0fbcIIxYWZjeB UxODAwMFxhbnNpXGRlZmxh rzqfYGIpXJY3enVxKERwKO mlFOVsWXjgYr4ihFZljOid JfBtMMZvk6iuhlMOpeebgS g8n2zsHWJdJmV2nDDfRFda C9fvwqSokCHkPJTmEYf6eQ 05TVQruQ0cbJVjWKovmyVi KwG0GTjpQSVgVdN8AYFhbV BvQQCwZ4meFWEaOAkmBJJr WZfzlULsVVA5lLkly5G7vB VzaGVldHtcZjBcZnMyMiBO j1DuVTz7uUejG6EwJSAcXf E3dEDuHFBfSKzpDPAcGOSi fgL2uZ71XPmjlmP7sXQhn7 Nan92gs128sH0jnMLnJFJ2 XDSyKMFchCXuTRJlMDY7QJ FiyWPmG3xlUWXuGZ7ekmmh SOteNFatUIKyaZY2BPDnvT UvF3XwCMVfVVqaNBKxyhs1 AxGyTs8fyVNnwQviZEnyn9 deo7ihsTNxYbi4FWSmJgWx JblePWvaa9Ghk7zlUEPtoc 4pWGH8wDKauEczy9C7xXKu RXJfcUPtBPOiHZ6rdHIwVY PjoK6qwxsiFILoEaHmyiro YGGbeGtlvaByNv7fvAjePO L7XWeuK5cxqN2pVrN9MVlr Z8rcaJ9hALo3FMlrKUXeaD T2llA8HWVmzXDnC2JztK2f AKEjHQ6xwsu4v4dpQHG9HI yfJHXsUuN8hrE7RLSqwTOg YNVzaLzcZKcsm396CYK2Hd RvJXSst5VoN0KqsGccD97e iBrfM53vMWOzoCkdmL0ipL wceO4pUgEkStPfFAgsfNqj CH4nCBGrS1fflVCeMDUpFC SvN8nwDvHznS1fnOeaKNvy mpWjZOQaQnr9OCZziDFuKZ UcOkn5GPAgXAArZ93jadaf YBH4iJ1hy2zws0QrWUxoMX R5BXOkq79cQAzabqQ8TFcj Kg28AYvfDTZ4GRgkACQ7yF == CPT Code(s) (test code c5qysIJrEQSjoZI2PtGaAQ = 3357) Vmu9ytz7FaqFHjoXVeOIpq uIGqqgTmqt23uOS8aI83RO 0rVXLgVoU5XXWaueB7Mvj8 HYVrUBSmtAUfK886e6whr7 ifcaJejIC1oTkuLGXcqhit DgJ8YYqbWOVxthlvUDj4SG cfNQXvjHG1LYZlpIQjT3Gi JVSuZS8hmro7YUO9LSysOP IdMtU0QMSvdQAzRVEfpFxi WDoyw911SJJ7KuDoDEXhdl GpoBnuuV1cZoDbXTL8ASUj NVgzXHBhcn0= CLINICAL HISTORY (test m8qnqSCnRVNtlTE1QbUxHP code = 3356) Asw7cxd8JchROduMIzXDxv lREvonKndv47xIV0dD36NG 8rCFJtOfA0TWMxypO0Yka1 DEYoVBKmtRJfH526d7sch0 yddgHoiRZ5kYnxEHGoopxi HoN4HOqwJGJfkoenUWg3DB kvDJIjnQD6YSUzrXEvV4Mc FPVlPV0qkif1AAZ9RYuhKD QoAfC9LTRleDWyHNJfzJwl HCluw147RMC7MyZpWRKvzk LshUntdO8wCqJeOTTPLIS2 ck8fz70mmGJlAOPgMBFaSw m3hYYjbROtQLDuBNHid8o8 oGJtLpXgr2oxwaewWOJ2 SPECIMEN SOURCE (test z5vbcLQpVSSleZA6HnOzPS code = 3377) Aug2aux4LllSFxqHQiETrb qVFobqApte68lQZ0uA85DM 6bQBGyHkD1RJXrimH7Gkm6 JERwOUMfuKMuE388u9hbi2 hzvpWeiCH6kRtyJUNzpukl GuN4QJetOTBsjwnaPGt4HY qoZYKeqLR4LBEuvIZsI6Td LCZwAU6jcqq0GVT7TPgqCY WmWpP5KLYgdQBtZQOlxFdj GEsyw643XQA9JeAlIPNnyu HsdPjczO8zUpQtKYUIJhIm MM1zwPKeFPBufU2vDBBdU2 f3C5FnA6LtQFueC6camU8b GINpJJIDk4n5dThlA90pv9 7np6tndV2iNBxjhT1rVUQj OBQWfN7vs5tiHDmcx4DbnZ MsIHJhbmRvbVxwYXJ9 GROSS DESCRIPTION (test c9mnsUHuVFDffYTiUeMbIH code = 3366) GjFQYtt0uqPKDqzOQpXpVt MzNcZnRuYmpcdWMxXGRlZm Eap5ktr996xHZen5otOQJN nlvzqQj9f2pmLIDgFoM7iR DyTHofU6voyeJwkSIyFWCy RKz2dI19IAKmdD6cjGRoAU kwkzMfEkX1IUpxCGDyIyB2 ELGraWDaPYYpJ1zgQXStJM ppWSYrCAsssFYvNLY0hCpb d9G3dLPoiPIxvDuhNgCkIp IpQYGSj2UjOUt8sWymV9Do IWQdYwO6bOUiOGMpNIvuCQ PvJDKwvsH0bB58LLpzlqK6 yKXtl7Rju37tm780wA6zeG KgAPM2HBHuREYedZTcQCZb QCA0DQOfzIZuY6z3DzKdhM GhD5G1HbEjtKSyL8W0PvIu sPBkG4X1JmKttICvTFQfiQ RvNo6swYUesLBfzt7kep58 EQX9n0NckUqdFOG7HYP3Aj BsKf3fyKHcFUPcKEGiiIZx AGZfFC6vaKUhGJFtsO6fcm xjXHBnYnJkcmhlYWRccGdi ufJyNu4gvDhfDKT1EVnxM3 cunC6lDaZ6YVwrN7mecB3v DMe5WIfwnGM6SFVxoV2nBR 8acmzpl5ywGgFtYL1kvvwd g4pdIsWaNV4ftid5x1jlDr TnNK4grlhyq7yqMuQcBPkw BLNisvynYTDls2PrchqcMK Chw6EkL4XbhXxwO42rpJpg V37gVVIrjKvoeT5iyBjyvC 5cZjBcZnMyNFxwYXJkXHBs YWluXGYxXGZzMjBcbGFuZz EwMzNcaGljaFxmMVxkYmNo VWUzSPnaM6wkVuKeXhWxFA BBLiBSZWNlaXZlZCBpbiBm r7IcAZyfyzUkAQJjfYGdGI dpdGggdGhlIHBhdGllbnRc U5F1ngLkAA5cCODuGTOgD0 BzHRBeA68vAECfiO7iJNJt EQ9xTRJvt6JqrxUmaxquZ4 2ml61bqE5mbHFxZCDoRZYs u40wzUZ5swQpYcEbXNRrVL TyAU7iWFEkqoAog7R5HBOt d4J6JLPrBSKpeDIgvtshGJ 82RDueIC67WYueCR9qSVHe HwAMmEMpt2NhZ1ueRS1fgJ Fnk7FexBx1xWGaZWxfVBGe cO4eqR7pYBAyFPtvkvTmjM luZSBCLiBSZWNlaXZlZCBp guHmm5IpZSgnltTmWJYypX VkIHdpdGggdGhlIHBhdGll diPfF9B4dbMdFB4tXFOpNR VyF2IlOQFdT67uTHHucK5x NMTbKB4fKSHhcVsnt5cxMK RjoG1dGFOiaFwbSnVzyeYl L72ux3ccmELlb2OnGdHihR AtVNFgf2VweWOlTYEsqypx t85rgJZ6xPTauORdadQmD4 dbEjYgbwCkxKqiMCKvq93f QB86LMfbTX7jECeyIE5bZJ IbPYHeTKZlOAI9JLXoIrD9 IDAuMiBjbSBhbmQgbWVhc3 FpjV4bJEKzGxM5EWHlKjB3 ZVMiMeVziPYmfoVuT0rpZI lwfOVcMULcQBFoiBJrfH7w teEhcaQbhTSyhRZ0BMJllZ 6rbU06mxXonwANSM2caCdz VSeboL0zAEAmRVDiS5Pjty GaDAuzWJDuyr2moSdpYAla PqXfADTxy1k5fDX7vKUcdJ Q7oHAdcLkcVzCgDB9zlGOj AV6lNDmxGAelglBat6PcRG 93mQKmsaCmnbWvAzmow2Rx fYXfSznhUMVtNQXqa78tcK Y2rnCzUhM8KIKfVVDcagBk CxB0IE9wzYgibfTmi6A1BO Lgt5U7IRLbRK8xgM7sNVox IHNpemUgZnJvbSAwLjMgeC ZqJrCfhQDfQtAvG37enS7b NY15KYzqBA8aVOufQR1sVS NtIGFuZCBtZWFzdXJpbmcg HH7oZLbeEU02IMewLA0lUL SvBUwcJIVsU5MxJ6D9VZ9a VGhlIHNwZWNpbWVuIGlzIH G7Ti8rrYGiLCAxelI4p6Or WBoxQNTkTcnmxQ2eUUndti LdO8zKHDVmov8= MICROSCOPIC DESCRIPTION r2qwdHKgTWDuiDE9SkTmTX (test code = 3371) Fqy2ywd2YxfZCieHIiOTdy cTNcbjQaiz22eMX9oX88CS 1jOFRsFvK1IJEnqfF9Qma6 HZCxUSKvfJZpJ236e4mru7 wtkpXkvYF7gDcuLFCrttjz KdI5JIevMHOsbpswFOi9LS ngJTXmkVK1DHKiqUWjQ0Zy KLEeVB0eoju3SUY8NLxqYM FxDiA1KOPwuGDtFIBdmJnr FFpgk789BAD5CcHnBWKtpi QzoEenmS3aJwDaDYZBJHSt WC2bRFdjF3azD7RzHJVtGS wnnLtvx9xtOU7qVU6nuEri zxDdG1qnyLIceBUbjwXkZj ofMH3xUPYgtgdzKPRzYw1c Pq2sr2rsjottbGZbudKwrW 7smOLpaOM1gM5oPESpwtTp z1AjpcTgXT6ehSCwfIZgjC KcOAG3p6BiJDCiFJPgmvSw YYjzT10rzgP9VHorUUJoPJ 9dJY4pNTpycBgcc8XcW9Me fsZywLKoi03cD8AecVQawj MdruQfj4TqwxIxrrSef9D2 vA0kUYM4FUiwgz7dYOihFI J9 [facility] [id number] 18:24:44 Test Item Value Reference Range Interpretation Comments Case Report (test code Surgical Pathology = 104) Report Case: [id number] Authorizing Provider: Dewayne Wise MD Collected: 01/09/2022 11:31 AM Ordering Location: [facility] Endoscopy Received: 01/09/2022 03:51 PM Services Pathologist: Evelin Wharton MD Specimens: A) - Polyp, Colon - Right/Ascending, ascending colon polyp B) - Polyp, Colon - Sigmoid, sigmoid polyp C) - Biopsy, Gastric, random gastric bx DIAGNOSIS (test code = g0cigKVxWYEkr3nyNLBwdK 3220) FuZzEwMzNcZnRuYmpcdWMx IHtccnRmMVxlcGljOTYwMV bikyMhNOCpfQEyC9Mbdluf XCojCK0uYN3fdGgmzNShpT TbZDVfHpTmq2gup863pSEz j7eiQXVTnkwwbPw4iHyoX4 3kn2F3VegvT51cnKCvVNH8 BABkAZMogZYfPQIlXLE3WJ QgdRJpM6azCQLrXU3dcmda QRxnXKayECDcaRS9RCMtpO YsA7ZwSPXcDXimBQXydze5 GeKqPx0xhHLwmYuvSUipAC OjKRGhTRfoIDKaCiFmZP5h P68QR06vTRTNE7tKT6DYR8 EGGVeZAkchNS6JWQBGL0GL FJd3ELUjyee0TSMzIXYZYU AYYBXRDEUMEF0KELBucDYy EKLffoBRCrPYN1iDDtfuJ3 kHYC7WXOraFM1ERCPHT0YH IQs9NBZzamp4LVEwQPIRIZ YKCGTSEWUIBU6ADSLxDNVv stfvRCPoNt6wW0DYNLWLPP vrP9bPTBWOZ6ZdU7FXZ6kR SHGETARYIU4RO2pbwDQmCI RhYiAtIFJFQUNUSVZFIEdB Y5AHW9TPMSdBZORywgb1UO UrSCCUDYeLQJtSWL0PJ59L BQTATPSMIB8LDKZTQOjTHI 9HSUMgQUxURVJBVElPTlxw KVVahUGrVF1xFhNOSLHBDn MjOs7HBAzXSLrCY2GMR6EK ZhZJANJQT83JO3IJRIMMNb NHXcNJY6NMBB1SOGVAEYkX S0xgFXY6e7ncoUXgBVVbmB UxODAwMFxhbnNpXGRlZmxh mdinZEKoKQZ5rbGhAPXiAH msJRDuOMtsSn3ghFMzxGuk KfMdSWWis2zcefQBcmhrdF h0l8btIWSeLiX9dAGiFLbh Y1xfkwLlyDIgQYSxGHb1xQ 85PFMjbU5euDLtDHzumvTi ReN9STzjCHTfRvA5ABBpeY DkIORbL6rzUACnHSpgPOCx LRfehGHiSTK1dByrk4H5jE VzaGVldHtcZjBcZnMyMiBO a7XyIMo3kKfbY2WoYXYaCk P2dWZvBRDqDPakZIKqIDTa zuV2pI35PNaaxvJ3tYTiy5 Alz79dz335rK8xbZArZVS8 VGDaFERdsTPzBXTbMRN2UE SudQHhE2pwYCNbJP3vypur XSgvJOnnPOPlpOZ4HMEenR UeE1PcPFKiKEwtEIVittx8 YqStCf8zbICgzFdnFEkvf3 ios5haiHAoVsr9TXHgGrDe ExbuEIens1Zar7ikXCAsno 7cHMO9xOTjaTnrs5L7jCJf ZDZhjFBaAWUrAG8tvKPdCW TdkN7lzyzcILQePqXbiwdj PPJmtMhiwjHcOk6deBqdZU Y9RZdgP7ficD4rAyD6IGtz Q3xqsY5rOUe7EQxhAKIvbQ A9grM1LAVggIPhO2RbfI6z DSLkGD7vdji3n4coEDE7LP vtRFWnGhE8tlS7PDZhnZRh QZZxvDjbLFylt347XIK8Ld PzLJXlw4TkN1SipJdtC62x wWqiO38rOYGjgVefiI5pxG twnW7pPuRzXeAvIBydwXws CS7dXHNeU8xsyYMaNYVzFR TyU5xfPhUqrS9naIliMHxp ogJqVNEpXbg9OWOkmBVdZO XdWca1IBKoXEKoK31oohyh NGN7iO5dc9kgw9VdJBudQV K8NHSxn88kGIdokjN0KYll Gg93HOeuTKL6HRuhYIG7fD == CPT Code(s) (test code v5gwtRHbTJAvzTW6HnTvPR = 3355) Wsq1yso2CloBRziGTdOPtq hXYyakTjvj77fLN4xC53KR 5cNKIbUhV3ZJWowsV9Xxz1 YWDfXVLvfBWzK418s8hgl4 kwihZvkUD0pHhdLBOkcptf MqM6DUwaIQVpnrpwHLp4WJ gdDPAllEN5DRTifFJwF6Hm DKTdWB6bfct2LOU6XZnhLS JcMkK2NYNrgNFnYALjbXyx PEmam343NAZ4TwJlTYMevn JlfOpetD9wSiWzZZV1YRMu NVgzXHBhcn0= CLINICAL HISTORY (test t2llsBByBPPagUF9OePnXF code = 3356) Qtk5jyv1VukOUsqBPiBBsb zGGpbbNgvs18zHS7kN62JJ 0fPWTuIjB8FDXtxrM4Ynm3 GVRwJOIqvFQqE503j7iri9 objiSilJH5gErjHKYwcech QsA6UZcvKMNoakhfSLe9MN nvOETbqKS2VWLfdXLyK8Ll VYSuZH8zsrj7RIQ4SYnmRP InCdI7SOVerKInGMFadPbu UDtks286VPP7NuVrJHJwzg KcnTsatN9lPmScBJKMQVN1 iw8hw53icIXbIGByRMDkJc g3eQExoXTgFDIaQHMpz6l8 nHJtUdDbw1fntanoTNH7 SPECIMEN SOURCE (test k6chtPGtUJKvcEH1KvQjJE code = 3377) Ril6ucu7RfqCTggHEoFMgr jHMbuxHbmf02wXT7hI76XO 6qSAQuFgO7VSAfrwC2Bbw0 CGEoMEUwqZLfI174n4hbi7 tffnNkvWR0uImnJVPcnkoq EgM3ABraGBOlejyaKDu3XY guBHRuvMA8PSMqhAByL6Hd LJSaBK5blwr2QTM3OPkzGR MgIlV8PQSasQRgYAMquRhg NAqbm226BZL3GqGdCLQjsl LjnWzjdE3iGsEmIHKTOvQb TS6cmVXmZYSwjL1dCYWoJ6 v8F3FmB1UoVYsvI0qmnB6u EBTpYFZWp2a8hRboO75zc9 6gu0hrlK8rFGjwhG8qBFTg EFONdJ9jo7ifHFvpk2PqeH MsIHJhbmRvbVxwYXJ9 GROSS DESCRIPTION (test m0cfjSPeBOOzzJYmAkRpKQ code = 3366) SfOIAla2acSYAxvDOeEwIl MzNcZnRuYmpcdWMxXGRlZm Rex9aby022dLMph9yuLIHA sgyaaXk3h7uvAZLmPkU8mG FfAJurP1jggdQhfOQyBYOr QWy0fY36GPOmwB3azWCdHX niyxXmFdS9WXigNMWvQbI6 AROxjGMdOGIoP8kiWQVqQR qdPWQbPNjnqKAnXRN6kUhs r3C9pBSvzYYddKuxRoPnYb UnNAFJf6YqVTz8qZwyR1En NIXaDgA7tCZhBFHiEYjsAA DxXQUkuuI5iB78TCrczzS5 hVLxo9Vln05nr328rC2uiY IaDNM3AUIgSQVmzXWwIAWg DGV5NTYyoUGgQ7b7QiVboN OhL0V6DtCarYSoK3Z4MnPq bGArJ3W5OsDltMUfCOIrhR ZfVz7jcBGukEUrbb7mrw59 FLZ1z5ZudExcSXZ9FBJ6Sv GzIs6izPKzRPTiVELtdLVi EQCrUK0fsIMbDQHbaS9plu xjXHBnYnJkcmhlYWRccGdi uzZiAz9cwJbzRKK2JRvfB2 qzhF8fAvO6BPkwJ8sbnD5v IFb2MAcxjZL7RRYsbP2qAT 8miximc8wuTzPmFQ2nuxob j6yjXmRdKU8cskm6u3epPg PbWP6pyqafc3alMuZaRRyg JXTswfmtGQSed9WyxvevKH Gej6BbU2QkjYvuD40woPmz H03zMZIjmPriqH1toEofyI 5cZjBcZnMyNFxwYXJkXHBs YWluXGYxXGZzMjBcbGFuZz EwMzNcaGljaFxmMVxkYmNo YHNyVWpmV4erJmLwAxKvFS BBLiBSZWNlaXZlZCBpbiBm g2HbXCyqfyAeUYFaaNFtNA dpdGggdGhlIHBhdGllbnRc A7Q0hkUoTT3mUCVjGRBvJ0 MzVXGfC48bWKQefG0pEQCf CT5aOIYsh7FzvtThiebiB0 0vd57cvC3jmTNqNQAiDPJt g74feSB5aiEsTfIaFRHlHQ OtOA4nSBLstyUuh7X1QLQa k7K6UUPzVSJoyFJaqxjnAA 71UChaSC40AYqpWU8lZLRk VqFWdUVhy2JxR5tcBN2bpF Yut8WenXj4lGUgKHxbYYAk uO1qvH4tTBXhXOrcslRcdQ luZSBCLiBSZWNlaXZlZCBp yjJqv3RuSVylmhNkZPSdmQ VkIHdpdGggdGhlIHBhdGll vcUxH3D7eqWxFY3wNXQeNL JnY0XePPLxY72lZUOtyJ4f YEYyKZ6fOZQrwOxqu9klQI EeoQ8nAZTaiPanYsMlpuMk V30pq5cmwPVnp3GeZbSxjK CmVOGll9DrmEFcBBLmmvjd t37ldSZ5fYZhjNTwelHbX9 oyWdRcglWvsChkQMVfg20c LG29CXooEM4aORbzLS1rVU YeOOIaTAGhFDD4MLGyFfR1 IDAuMiBjbSBhbmQgbWVhc3 JctL0kTRFhVcX1PZNiHqI2 YXXkEiUqxZJwsdApD0csKH agxDWnMHRtMPHqpQYnpJ8w fnErqzAniYBhdRX7KAHlxO 3iyE81foTfccZHMC9vcEmj QQwxmQ2zZNPoKCRkQ3Fwnj TwCYysESOrdm5dsGucOGmt JdKsLHGxt9v8iEZ7fHGanO C5rIIqlErcCwWbES9bbBTq HX6sUFpkBMyqmqBwb3SdOR 85cUOjwoVjnbMvBfcsx9Kk rBIwUcaqSWWkXERgb91edJ R6lvWvJqK5VATaKFQfshYp UjO9HI7skJblokCih6W3FV Qaa5Y2SELuJL1raO4hZFza IHNpemUgZnJvbSAwLjMgeC ZnClNypBByJuFiP03paC3q PA50NCzpSQ0cMCqnCJ3bLA NtIGFuZCBtZWFzdXJpbmcg XQ1iXNqdKS01XHqtEY6gAJ XhYNsqIQOjC6XnJ0D0MU0c VGhlIHNwZWNpbWVuIGlzIH S2Iu4nnVTlRUUubpG5u4Ry HNamKIRrDsooiO6bSEexga JtN0wTXHIwte0= MICROSCOPIC DESCRIPTION d5yiySFsRUXgbGF8HjUoDM (test code = 3371) Dgp3bhg6LtiPGbwPDqDMcc yYQpjmPuwo14bBD8eX39BW 0aXFReLlQ9SQNqfyW2Sjw5 VUAnQBRufBEdF508y9bdw3 dptqIysDA0nSdnBAQeuhll HjZ1JBbkTKDstgkmGWj7ZQ oeFRAlmYI3PURjrTKuS6Op PNFiBA7coaw1NCH3VWvnNT DsWcS3CQIuiCAwDPIqhMxx VDeqz681ITM3BqOqWLKuyk MdnEaghK8wYeGuESBKLVQr ZU6aFYtoN0jzI6FnXKMzFE sjiIfkx6jqWU8oYZ6opIvt lpJhS7dpaEWfmCGvhkKjSj ruQJ7hXLEychnzLZKlOw3h Ln1ah6cddjjgwTCtpbNuoC 3hgLBiwQC6tX3oPPUejsCv x6CwqtZaQV4xgOEnnQNfqI DqIOA5k1YoJKTlDXQhcxWg YMkhX88csiE7VEldPYFnIK 8oAV4mNVowwSgts5JxM1Rd bhKlqDCia80vZ9GjoZCkim KmbxMdp8VgitUczyJqi1N5 pA3zIXH0XKimsx6sCYqdJR J9 [facility] Xqnm2906-64-15 18:24:44 Test Item Value Reference Range Interpretation Comments Case Report (test code Surgical Pathology = 104) Report Case: [id number] Authorizing Provider: Dewayne Wise MD Collected: 01/09/2022 11:31 AM Ordering Location: [facility] Endoscopy Received: 01/09/2022 03:51 PM Services Pathologist: Evelin Wharton MD Specimens: A) - Polyp, Colon - Right/Ascending, ascending colon polyp B) - Polyp, Colon - Sigmoid, sigmoid polyp C) - Biopsy, Gastric, random gastric bx DIAGNOSIS (test code = j4gplWKnJIBeh4bpDSYtbL 3220) FuZzEwMzNcZnRuYmpcdWMx IHtccnRmMVxlcGljOTYwMV xeimGuIWZzpXBnG0Pivaak GNzuIN9iBJ1njOezcQDghN ToEAJrNkDda3clb187wHBb c9vnGNGJakblwSq5aZqeB1 7pl3H9UbqnN75wnJBnFOT3 ZYXuYRGkjCTjPHAhPXW0KU IqlCCeS6hpQFPoUZ2asjht MWlkBJvfTPWadNS0SVQkyL PpS8LjURGgPGxsFHBizlh2 AjMpNq5cvCAadPhnMFixQJ WmZXHxSRcjXKBjEeRlBP5a R78YD41uCTZNF5oDD4QBC1 QJKJtCEdunBV9FPRNIP7MR KFe9QDPrhce3SGFdRGFHTV HBYSGEUOSLLO7ZEDKocESa RYPjekRGNgRKN0eFEfyoQ2 mPKC2ABOwsAA8DAHCWP0SA LHc3XNLtpej8LZYoIYUKPK ABXBJUVPWYMF4OTJPhIERn zndxISInKu9vH6DSKIXOHI xvR8rXSEEDA7DoV9LRG6yZ XUIPDIYEWA4BA6qfzJTvFO RhYiAtIFJFQUNUSVZFIEdB J5OIR2UPCOyVOPRwgbz8TI QjQTTOZHgKMKdVPR5OB81L KMHJZIDVCJ9LSQQOIUeWWS 9HSUMgQUxURVJBVElPTlxw LAVdbZVkCQ6pFxFDQQUFVr JwJf0PUAdALQvYL6IHP8NY LwLMHVQDQ81VZ1WVVWIWXh GDWwJIS5AMTP6EJVAXZTiN W3ikNSO6k7guaAUlFKGqxR UxODAwMFxhbnNpXGRlZmxh dlnzAUXeNMF1klGoUVRpDL hdZXMhJKkuUs7obPQjuEbw IiTyJXGbb7ptnrAZvhdvfH c7y5xvGZKsVxD3fLPaBGfk V4wrcxCfzSUwSHIrOAy4oU 12VRGybW9tuUMbIPbxidGb YmW5TVloGEWnUqP4GFBnnD EnSHZqU7xhSVHoOGzeWUXy DGksnVBnLEI9jCrsq1M5mU VzaGVldHtcZjBcZnMyMiBO v0SpTZs6rGthA3RhYMFdWa C5bOTaPELdOBlhUOAgKARs gkI7fP74YAnwueQ0uHMlg6 Pxq89te836dJ0kmOYxRGF3 FJMuLGQrgVBsNWErRXF9XH BqrWCbZ7ebVFGhUK4srlix IZozULdsHXHacYJ6IHAxnP OqA6WdJLIhFKekUUJnkua0 MkGqSg6itDNskThgSPgyd0 qdl9alyNGaDhq0GFFqHjLg QnbkHAnji4Uhl9gsXMCxtw 0gTPK6mGGeyVbrr5Z7nKSt FENkqRWtQSGvWI3gvVTdTM PqsW2ioytbJDDgKjKcblax XBFfnPpagfDzKi9dxPvxWX T8GEccD3rbwW8gMmM9WEwd I6qcnB9yETo1YNnsEHSqrG Y1voZ9RSDmvHYmC5MrzF8o EYJdRK1fnlp7b4znFJE6HM teYCAuSyE6jkM7AZEpeOEz IDXqqEspOWnqq259MTA4Ds HfBVQmu1GsL6WisKonR55c cDpiB31mQORsuSneoW3psU vvoH7zHtGpMuYgIGaheDov FS5uSOGfX7dedCVwGZPdBD UsE7amGxYscY2nrGdhBJkh onHaXVJjXzk3RXCgcLWwZY IyQtn7CGFgKHWpB26ijvsn XIP1aH1kr0aja2KsWKlxOG L9BILti20oLZfeuoP1FXas Rd04UEnbRUE1BKzeUQJ2pG == CPT Code(s) (test code x3zneRZzQEEipKP0UmFcLU = 3357) Fqk5eqf8HxhWOrjKBbGTgg bUUysoIcmq77nBI4dO02WF 5qSPMoHmD1KBWenxI9Teq2 FLNlCFBkjZFsA891p2poq1 roksJomZP6xYzcQLDrwejy OvA3LQcvEWVfxorwOSq7NY zqCJPrnKB9JLTaeTZvN7Mq NJVgVO0kadf3RIU7GAgzGX DhYtX8PREtgOHuMGMnaHfq KBsjg701ZZX6ScArQCDdrz XcsYermL2dQmVjELG7MDVw NVgzXHBhcn0= CLINICAL HISTORY (test d0pkiHStEHQreCK7TeLmMH code = 3356) Ary2mkq3CvbILkeKCcSVns lWVftpKofe06mYZ8yK18MC 5fDRQbVpJ1OODhnzF2Hnt5 MFCpNUThhIDdW879b2ysm9 riaaArmYN4eFclSVOuxvrb PkH1SHotNITzkfraPIf8MF zhLLHggQB5HKMxzOGnD6Ek OYFtOK7ncka8KWC5DTydGJ ZwUvU1ZCYrsLZzFCXhxYlb SBhvv020RUI4YdHiDIIfcw CxsIcseX4tCzFuLXPUNGH5 zs8pb52ayOPqYWItTPDqRx d1xLZepUBtKRUuCHTcy0k8 cQYaOgXou1vbdzjwEIK8 SPECIMEN SOURCE (test s6tatVQeDPLlaJZ9XnQiCX code = 3377) Bmg3evu7TrbCQlzDElFLkw kSUoicSecp62xXT1vB04CE 5zVISdFvK3WFTmnxQ4Jtr6 TFGuOONurGHgA613e8nog6 mdpaMcmZB8mGlhMLHpnzqq WlE2VAmzRTJytxoeUXj5HN eiJXKnnEP0OCZpcLCmA7Dm IPPwHD4hcue9EHZ1BFkdVJ LnNhI4QKIhhKXdNHGcvVcp EXhfm024CQW2PcByWWIepg PejLciaS1hCvDnTQWQNrZc YL3kfQJuAHHwxT2qBOPxH6 p7Q5LeG1NwANemT8mwfH7x KABmQNEEm3n9cMlqA53dq8 2ok3vlkE9vORutmI5gNLCo PDZJbH3oo8lzNLyls2TasV MsIHJhbmRvbVxwYXJ9 GROSS DESCRIPTION (test s5rkaHGhYGEjhINzHlCrGL code = 3366) AlHRQga3bbHAZkuOUdFuBe MzNcZnRuYmpcdWMxXGRlZm Kod4cbt436iOGln1raJVWS kvyfjZs7a5yvVBRmJsP6nL JsGMctF1ffuiMyuEEdUFWd ZDz2gY07VDAxgD3bsFLtZL ncrqVvJlE4WGfiOKWiCeM0 KMCzxMRaVCEiL8rzVCAdPH swVDLqWMziaTSgCYW9xTan s5B3nXHrtBGfnUowDnEuLb QhANXFh3VxSLo7zMypO9Ud YLYoUzJ3iFHoKVDkFTphPR GlRGPxvjT7eU30VEogiaW0 wXBnx3Tqz88wk550bX8viL ToODO4SSOsZIOpdVDhDVFi PNJ8MGHieGCvL0u1AfTbbY BjH8N3CgPxvKNyP2H3GoQh gJXoZ1G9YqRuvXMwMIRszM NoRi0guNWjwMAijy8hwt67 MNL1k2UqgYrcXXZ5ALJ8Az YfDa7yvDJfILGmUZWpgIZh HPJzKU0tyTRkQHDyqE4kop xjXHBnYnJkcmhlYWRccGdi qqCgLv2kuPnqXPX7RDrmJ8 fkuE7zIyD0ASwlV1qscS0w QHv3HGcxwDX4BHAuxE2fCV 2egaflp5qyGpTcMM3dlhfx d0tcGqCqBZ3qfla0j9xwFy TgDJ0lxjjaw3xsBdGsEOfu PKChmtfkMBAfb0NctraeOH Kqv4UuQ0QkjBtmQ52ksIhu S57fIDFnkMtmoL1xqAettE 5cZjBcZnMyNFxwYXJkXHBs YWluXGYxXGZzMjBcbGFuZz EwMzNcaGljaFxmMVxkYmNo LCPmSNtbE5dhLuTtOzGjMN BBLiBSZWNlaXZlZCBpbiBm h9AyCJlgphEmJIRulEObJA dpdGggdGhlIHBhdGllbnRc A1F8ojFhPE1tNRJuVKYoG5 RjNTOvC20wCGOcdM0rHNNa ZH9zVQTls3HtrsCmolzdD6 3gl13odA2qiVNrGDTfNJXg h42vyGH2edEfLeBsFJTkPC DdRJ2rMQLeqsVft3I3TSYn n7H8KKClWBQdkWMpayukCV 83GXqpBP72ZKqeDW8bDHDn SdSAvKEtk7BtB4nlVW4ikF Vya0IgsIm8wUKiFHjoIMKg mP2fnZ3aQGCcTUgneuIaxY luZSBCLiBSZWNlaXZlZCBp yfFtn4VpLIaumlKrFOUdkB VkIHdpdGggdGhlIHBhdGll syUdO6M0pkTgCY8sQJWvEY RbN1NtSMVyB25hIFBbhM3r GWTmYC4yGWMakIstx5zsXH JlnO4fGPLwrKloStWwhpIp J87bn7llbGChb3JkVgGqlV VtPMBma4VugVDpDQMpqemi d60lbFX5zTYqhXAludZzA7 eoVbLsftXdkMdsMLWmp01v BE42SGfjDO6sXWpiLL1yVC FcEHUhIJUfFJR1SFOmEdS0 IDAuMiBjbSBhbmQgbWVhc3 FhsV0xKAQpDlN6OANpUiP7 NZQmTtVskCMrjfHcD9kgRG cyrEYzHXLeQABiyVLhhM1g oiAnjxUcfEOnuFK9HBRqrY 6ynD84zvExbfOSRU1vtNae XAyqsO6gPIZbZDUoL2Xgwg RqQInqXQAqag8qbQhbUUdx JaGxFTGbg1m5aRS5fSGwbK Y5hMJrdBcvCkUnVH5qfOJp WL3yEGavOHwohbEze8TgGA 12bVMuxsBkjyQyQpuzj5Qv kJGxHhtyJJQjHUSzc80nyV J3jgEiTkE9JLJpAWIibgWe TpR7VX2ymYcszfWuf8J2JH Eui2W4GPJaDT1bnM4nBRxv IHNpemUgZnJvbSAwLjMgeC UwCvDidGKzCeRjP39rlO3m YV02AHoeMB1fRSpfYM9hUU NtIGFuZCBtZWFzdXJpbmcg NV4eFIoxIE62FHjeVM7zPR VhVPmwJSIqX6CqF4Y9OJ9a VGhlIHNwZWNpbWVuIGlzIH G1Im6tjPEeIDIosnA3w4Si UFbqXXBlXbupjJ7vHZsufe TsS2zUZQXarn3= MICROSCOPIC DESCRIPTION w4nxxEOnUNTesOC5HrTwCW (test code = 3371) Ftw3oua8NvkZVgnWWvNDad rKJqysAshf44bVH5yQ77FZ 1lODJnFxL0OCGkwhR7Mdz1 WJGtVQOnjGLoO540t6dbd5 mlsfPfjIQ8mPljAUQmamty RxE1FAkuDSWsmbfsGEb3BM qzEDAwhBU1FJGpqPPiD3Zo JYPsDB1qpni0GOC0SXxmFS EfIiA0PMKzaVDyWTAmuIuo MLdhe124TFM3XaKaLOWesp HfxLlnzO9fOuEbAKTLPKDa IY0zFErtM5jtM4MrMPMySV vyoDgcm2ypXF4bEO1vrMol nlTyR3eqmFVfjVKlumGfWr ltTQ3jJULmuwetBPViCo5l Yh1ox9uvdevzkGQikrXglS 2qaBSgmAQ0sE6dXOVyprUr m9MohkFbLX5gwYSsvOChvE EzPXJ3s7UeKIRxRPSddhJk UMxdA46ulsL4ROtyCDZdIM 3lQX1yDDaiaKhig9ApK2Vx afQegPVpx13zW2PirVLohm YmdwVhw2JzbkGhqtQfk0T1 wN7eRPF9INdybv1gGBxfTM J9 [facility] [id number] 18:24:44Surgical Pathology Report Case: [id number] Authorizing Provider: Dewayne Wise MD Collected:01/09/2022 11:31 AM Ordering Location: [facility] Endoscopy Received: 01/09/2022 03:51 PM Services [...] ROUTINE STAINS Signing Pathologist Direct Phone Line: [phone] signed by Evelin Wharton MD on 01/12/2022 at 6:24 [id number] reflux disease, polyp of colonA. Polyp, colon- [...] Helicobacter microorganisms are seen on routine stains.POC-Glucose [id number] 13:54:18 Test Item Value Reference Range Interpretation Comments POC-Glucose Meter (test 133 mg/dL 70-110 H : TE STED AT [facility] code = 1538) [address] [place] [address], [facility] 30: Suture Winder Hand/Techni miguelina ID = [id number] for Marybel Earl Lab Interpretation (test Abnormal code = 44394-3) [facility]-Glucose [id number] 13:54:18 Test Item Value Reference Range Interpretation Comments POC-Glucose Meter (test 133 mg/dL 70-110 H : TE STED AT [facility] code = 1538) [address] [place] [address], 770 30: Suture Winder Hand/Techni miguelina ID = [id number] for Shaye Earluja Lab Interpretation (test Abnormal code = 77519-3) [facility] [id number] 13:54:18 Test Item Value Reference Range Interpretation Comments POC-Glucose Meter (test 133 mg/dL 70-110 H : TE STED AT [facility] code = 1538) [address] [place] [address], 770 30: Suture Winder Hand/Techni miguelina ID = [id number] for Shaye Earluja Lab Interpretation (test Abnormal code = 02999-1) [facility] [id number] 13:54:18 Test Item Value Reference Range Interpretation Comments POC-Glucose Meter (test 133 mg/dL 70-110 H : TE STED AT [facility] code = 1538) [address] [facility], 770 30: Suture Winder Hand/Techni miguelina ID = [id number] for Rajat, Marybel Lab Interpretation (test Abnormal code = 21897-1) [facility] [id number] 13:54:18 Test Item Value Reference Range Interpretation Comments POC-Glucose Meter (test 133 mg/dL 70-110 H : TE STED AT [facility] code = 1538) [address] [facility], 770 30: Suture Winder Hand/Techni miguelina ID = [id number] for Rajat, Marybel Lab Interpretation (test Abnormal code = 04096-0) [facility] [id number] 13:54:18 Test Item Value Reference Range Interpretation Comments POC-Glucose Meter (test 133 mg/dL 70-110 H : TE STED AT [facility] code = 1538) [address] [place] [address], 770 30: Suture Winder Hand/Techni miguelina ID = [id number] for Rajat, Marybel Lab Interpretation (test Abnormal code = 04999-6) [facility] [id number] 13:54:18 Test Item Value Reference Range Interpretation Comments POC-Glucose Meter (test 133 mg/dL 70-110 H : TE STED AT [facility] code = 1538) [address] [place] [address], 770 30: Suture Winder Hand/Techni miguelina ID = [id number] for Rajat, Marybel Lab Interpretation (test Abnormal code = 81951-4) [facility] [id number] 13:54:18 Test Item Value Reference Range Interpretation Comments POC-GLUCOSE METER 133 mg/dL 70-110 H : TESTED A T [facility] 6720 (BEAKER) (test code = [facility], 1538) [address]454: Suture Winder Hand/Techni miguelina ID = [id number] for An Shaye castrouja POCT-GLUCOSE [id number] 10:12:16 Test Item Value Reference Range Interpretation Comments POC-GLUCOSE METER 135 mg/dL 70-110 H : TESTED A T [facility] 6720 (BEAKER) (test code = [facility], 1538) [address]2723: Suture Winder Hand/Techni miguelina ID = [id number] for HOLLY FULLER MINIMOL SARS-CoV2/RT-PCR (Asymptomatic ONLY)2022-01-09 09:03:44 Test Item Value Reference Interpretation Comments Range SARS-COV2/RT-PCR Negative Negative The SARS-Co V-2 (test code = target nucleic 29401-9) acids are not detected in thi s [...] revoked sooner. Fact Sheet for Healthcare Providers: https://www.[employer]/Documents/Xp ert%20Xpress%20SAR S%20CoV-2/Fact%20S heets/302-3802%20S ARS-COV-2%20HEALTH CARE%20PROVIDERS%2 0FACT%20SHEET.pdf Fact Sheet for Healthcare Patients: https://www.[employer]/Documents/Xp ert%20Xpress%20SAR S%20CoV-2/Fact%20S heets/302-3801%20S ARS-COV-2%20PATIEN T%20FACT%20SHEET.p df Lab Interpretation Normal (test code = 39573-1) [facility]2022-01-09 09:03:44 Test Item Value Reference Interpretation Comments Range SARS-COV2/RT-PCR Negative Negative The SARS-Co V-2 (test code = target nucleic 38581-3) acids are not detected in thi s [...] revoked sooner. Fact Sheet for Healthcare Providers: https://www.[employer]/Documents/Xp ert%20Xpress%20SAR S%20CoV-2/Fact%20S heets/302-3802%20S ARS-COV-2%20HEALTH CARE%20PROVIDERS%2 0FACT%20SHEET.pdf Fact Sheet for Healthcare Patients: https://www.[employer]/Documents/Xp ert%20Xpress%20SAR S%20CoV-2/Fact%20S heets/302-3801%20S ARS-COV-2%20PATIEN T%20FACT%20SHEET.p df Lab Interpretation Normal (test code = 40671-0) [facility]As[facility]omatic ONLY[facility]2022-01-09 09:03:44 Test Item Value Reference Interpretation Comments Range SARS-COV2/RT-PCR Negative Negative The SARS-Co V-2 (test code = target nucleic 99988-3) acids are not detected in thi s [...] revoked sooner. Fact Sheet for Healthcare Providers: https://www.[employer]/Documents/Xp ert%20Xpress%20SAR S%20CoV-2/Fact%20S heets/302-3802%20S ARS-COV-2%20HEALTH CARE%20PROVIDERS%2 0FACT%20SHEET.pdf Fact Sheet for Healthcare Patients: https://www.[employer]/Documents/Xp ert%20Xpress%20SAR S%20CoV-2/Fact%20S heets/302-3801%20S ARS-COV-2%20PATIEN T%20FACT%20SHEET.p df Lab Interpretation Normal (test code = 60299-0) [facility]As[facility]omatic [facility]2022-01-09 09:03:44 Test Item Value Reference Interpretation Comments Range SARS-COV2/RT-PCR Negative Negative The SARS-Co V-2 (test code = target nucleic 43045-8) acids are not detected in thi s [...] revoked sooner. Fact Sheet for Healthcare Providers: https://www.[employer]/Documents/Xp ert%20Xpress%20SAR S%20CoV-2/Fact%20S heets/302-3802%20S ARS-COV-2%20HEALTH CARE%20PROVIDERS%2 0FACT%20SHEET.pdf Fact Sheet for Healthcare Patients: https://www.[employer]/Documents/Xp ert%20Xpress%20SAR S%20CoV-2/Fact%20S heets/302-3801%20S ARS-COV-2%20PATIEN T%20FACT%20SHEET.p df Lab Interpretation Normal (test code = 60423-5) [facility]As[facility]omatic ONLY[facility]2022-01-09 09:03:44 Test Item Value Reference Interpretation Comments Range SARS-COV2/RT-PCR Negative Negative The SARS-Co V-2 (test code = target nucleic 23901-9) acids are not detected in thi s [...] om SARS-CoV-2 in a nasopharyngeal swab specimen [facility] from individual s suspected of COVID-19 [...] revoked sooner. Fact Sheet for Healthcare Providers: https://www.[employer]/Documents/Xp ert%20Xpress%20SAR S%20CoV-2/Fact%20S heets/302-3802%20S ARS-COV-2%20HEALTH CARE%20PROVIDERS%2 0FACT%20SHEET.pdf Fact Sheet for Healthcare Patients: https://www.[employer]/Documents/Xp ert%20Xpress%20SAR S%20CoV-2/Fact%20S heets/302-3801%20S ARS-COV-2%20PATIEN T%20FACT%20SHEET.p df Lab Interpretation Normal (test code = 61332-7) [facility]As[facility]omatic ONLY[facility]2022-01-09 09:03:44 Test Item Value Reference Interpretation Comments Range SARS-COV2/RT-PCR Negative Negative The SARS-Co V-2 (test code = target nucleic 50180-5) acids are not detected in thi s [...] revoked sooner. Fact Sheet for Healthcare Providers: https://www.[employer]/Documents/Xp ert%20Xpress%20SAR S%20CoV-2/Fact%20S heets/302-3802%20S ARS-COV-2%20HEALTH CARE%20PROVIDERS%2 0FACT%20SHEET.pdf Fact Sheet for Healthcare Patients: https://www.[employer]/Documents/Xp ert%20Xpress%20SAR S%20CoV-2/Fact%20S heets/302-3801%20S ARS-COV-2%20PATIEN T%20FACT%20SHEET.p df Lab Interpretation Normal (test code = 98432-0) [facility]As[facility]omatic [facility]2022-01-09 09:03:44 Test Item Value Reference Interpretation Comments Range SARS-COV2/RT-PCR Negative Negative The SARS-Co V-2 (test code = target nucleic 94767-8) acids are not detected in thi s [...] revoked sooner. Fact Sheet for Healthcare Providers: https://www.[employer]/Documents/Xp ert%20Xpress%20SAR S%20CoV-2/Fact%20S heets/302-3802%20S ARS-COV-2%20HEALTH CARE%20PROVIDERS%2 0FACT%20SHEET.pdf Fact Sheet for Healthcare Patients: https://www.[employer]/Documents/Xp ert%20Xpress%20SAR S%20CoV-2/Fact%20S heets/302-3801%20S ARS-COV-2%20PATIEN T%20FACT%20SHEET.p df Lab Interpretation Normal (test code = 16397-5) [facility])2022-01-09 09:03:44 Test Item Value Reference Range Interpretation Comments SARS-COV2/RT-PCR Negative Negative The SARS-Co V-2 target (test code = nucleic acids a re not 1457577) detected in thi s specimen. Negative result [...] revoked sooner. Fact Sheet for Healthcare Providers: https://www.[employer]/Documents/Xpert%20Xpress%20SARS%20CoV-2/Fact%20Sheets/3023802%84LBBP-QFM-9%20 HEALTHCARE%20PROVIDERS%20FACT%20SHEET.pdf Fact Sheet for Healthcare Patients: https://www.[employer]/Documents/Xpert%20Xp ress%20SARS%20CoV-2/Fact%20Sheets/3023801%60RYMI-SMW-9%20PATIENT%20FACT%20SHEET .[id number] 14:57:00 Test Item Value Reference Range Interpretation Comments SURG (test code = SURG) RUN DATE: 08/26/20 [facility] PAGE 1 RUN TIME: 8477 Specimen Inquiry RUN USER: INTERFACE PATIENT: [facility]US [facility]STA [id number] LOC: ANDI U #: [id number] AGE/SX: 55/F ROOM: RE08/23/20[facility] DR: Tapan Harper MD : 69 BED: DIS: STATUS: [facility] TLOC: SPEC #: [id number]:[id number] RECD: 08/23/20 STATUS: KRISTIN RE #: [id number] AN: 08/23/[address]: Tapan Harper MD ENTERED: 08/23/20 SP TYPE: SURG OTHR DR: Jaron Irving DO ORDERED: SURG PATH LVL 02/01 COPIES TO: Jaron Irving DO [address] [place] [address] Tapan Harper MD [address] [place], [place] [address] HISTOLOGY: TISSUE ID [id number] PCS DIANE LEV [...] - R10.84; K59.00 CPT CODES CPT CODE(S): 54927V9 , , , , , , FINAL DIAGNOSIS A. Colon, right, biopsy: COLONIC MUCOSA WITH NO PATHOLOGIC DIAGNOSIS B. Colon, mid, biopsy: COLONIC MUCOSA WITH NO PATHOLOGIC DIAGNOSIS CONTINUED ON NEXT PAGE RUN DATE: 08/26/20 [facility] PAGE 2 RUN TIME: 1457 Specimen Inquiry RUN USER: INTERFACE SPEC #: [facility]:[id number] PATIENT: MARIA DE JESUS ACOSTA #[id number] (Continued) FINAL DIAGNOSIS (Continued) C. Colon, left, [...] as C. ba/nr Grossing performed at [facility] Pathology, [address] [place] [address], [address], [place] [address]. Nozzle Worker: Leeroy Jimenes M.D. MICROSCOPIC DESCRIPTION A. [...] 08/26/20 1457 END OF REPORT GLUCOSE BEDSIDE [id number] 08:29:00 Test Item Value Reference Range Interpretation Comments GLUCOSE BEDSIDE TESTING (test code 156 mg/dL 70-110 H = GLUBED) BASIC METABOLIC [id number] 12:40:00 Test Item Value Reference Range Interpretation [...] CA) 9.0 MG/DL 8.5-10.1 N BASIC METABOLIC [id number] 12:37:00 Test Item Value Reference Range Interpretation [...] 9.0 MG/DL 8.5-10.1 N COVID 19 INHOUSE [id number] 12:37:00 Test Item Value Reference Range Interpretation Comments COVID 19 INHOUSE AG NEGATIVE Negative Per manu facturer, (test code = negative result s should [id number]) be treated aspr esumptive and, if inconsi [...] symptoms co nsistent with COVID-19. CBC W/AUTO [id number] 12:23:00 Test Item Value Reference Range Interpretation [...] (test code NO DIFF/SCN CRITERIA = MDIFF) [id number] 15:34:00 RUN DATE: 12/13/19 [facility] PAGE 1 RUN TIME: 1535 Specimen Inquiry RUN USER: INTERFACE ---- --------PATIENT: MARIA DE JESUS ACOSTA LOC: [facility] U #: [id number] AGE/SX: 54/F ROOM: RE12/11/19REG DR: Zacarias Rodriguez MD : 69 BED: DIS: STATUS: [facility] TLOC: SPEC #: [id number] RECD: 12/11/19 STATUS: ROSYT REQ #: [id number] AN: 12/11/[address] [facility] [address]: Zacarias Rodriguez MD ENTERED: 12/11/19 SP TYPE: SURG OTHR DR: Jaron Irving DO ORDERED: SURG PATH LVL 01/31 COPIES TO: Jaron Irving DO [address] [place], [place] [id number] Zacarias Rodriguez MD [address] [place] [id number] HISTOLOGY: TISSUE ID BLK PCS DIANE LEV PROCEDURE DISPOSITION ____ ___ ___ ___ GASTRIC ANTRUM A 1 3 GASTRIC ANTRUM B 1 3 PROCEDURES: SURG PATH LVL 4 (12/11/19- 1054) TISSUES: A. GASTRIC ANTRUM - GASTRIC BIOPSY B. GASTRIC ANTRUM - DISTAL GASTRIC BIOPSY CLINICAL HISTORY EPIGASTRIC PAIN -R10.13; NAUSEA -R11.0; VOMITING -R11.10 CPT CODES CPT CODE(S): 41793V1 , , , , , , FINAL DIAGNOSIS A. Stomach, biopsy: MILD CHRONIC GASTRITIS NEGATIVE FOR INTESTINAL METAPLASIA, DYSPLASIA, OR MALIGNANCY NEGATIVE FOR HELICOBACTER PYLORI ORGANISMS B.Stomach, distal, biopsy: MILD CHRONIC GASTRITIS NEGATIVE FOR INTESTINAL METAPLASIA, DYSPLASIA, OR MAL IGNANCY CONTINUED ON NEXT PAGE RUN DATE: 12/13/19 [facility] PAGE 2 RUN TIME: 1535 Specimen Inquiry RUN USER: INTERFACE SPEC #: [id number] PATIENT: MARIA DE JESUS ACOSTA #[id number] (Continued)------- ----- FINAL DIAGNOSIS (Continued) NEGATIVE FOR HELICOBACTER PYLORI ORGANISMS GROSS DESCRIPTION A. Gastric biopsy. Received in formalin is a vazquez tissue fragment, 0.5 cm, all as A. B. Distal gastric biopsy. Received in formalin is a vazquez tissue fragment, 0.3 cm, all as B. shivam/nr Grossing performed at [facility] Pathology, [facility] [facility] [address] [address], [address], [place] [address]. Nozzle Worker: Leeroy Jimenes M.D. MICROSCOPICDESCRIPTION A. Gastric biopsy. [...] 12/13/19 1534 END OF REPORT GLUCOSE BEDSIDE [id number] 06:17:00 Test Item Value Reference Range Interpretation Comments GLUCOSE BEDSIDE TESTING (test code 170 mg/dL 70-110 H = GLUBED) UR HCG [id number] 11:12:00 Test Item Value Reference Range Interpretation Comments UR HCG QUAL (test code = HCGQLU) NEGATIVE NEGATIVE Notes Date/Time Note Provider Source 2023-06-07 Formatting of this note is different from the or iginal. [facility] 07:39:26-00:00 Message from [employer]: Refills have been requested for the following me dications: HYDROcodone-acetaminophen 10-325 mg tablet [Ant agus Sheirff] Preferred pharmacy: [id number] - [place], [place] - [address] AT [address] [facility] [address] Delivery method: Pickup Recent Visits Date Type Provider Dept 04/08/23 Office Visit Nereida Sheriff MD [facility] 10/21/22 Office Visit Nereida Sheriff MD [facility] 09/21/22 Office Visit Nereida Sheriff MD [facility] 08/25/22 Office Visit Blanche Osorio FNP [facility] 03/18/22 Office Visit Nereida Sheriff MD [facility] Showing recent visits within past 540 days with a meds authorizing provider and meeting all other requirements Future Appointments Date Type Provider Dept 08/09/23 Appointment Nereida Sheriff MD [facility] Showing future appointments within next 150 days with a meds authorizing provider and meeting all other requirements 2023-05-27 [facility] 00:24:59-00:00 Pt discharged home. Given al l education and information regarding pain management; follow up importance; and s/s of worsening condition. Pt verbalized understanding. Alert and ambulatory to pov with vss. Electronically signed by Elmira Grimaldo RN at 0 05/27/2023 12:26 AM CDT 2023-05-26 Formatting of this note might be differe nt from the original. Isa Obando [facility] 23:03:23-00:00 Report given to JCARLOS Funk RN Electronically signed by Isa Obando RN a t 05/26/2023 11:03 PM CDT 2023-05-26 [facility] 21:00:17-00:00 Pt to ed with family. Alert and ambulatory with cane. Vss. C/o cp and sob with onset of approx 2 days. 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 [facility] 20:51:00-00:00 [facility] Emergency Department Note Patient Name: Maria De Jesus Acosta Date of : 1965 58 year old female Treatment Room: [place] [address] Primary Care Physician: Nereida Sheriff Patient Escorted by: Self [9] Mode of Arrival: Personal means [1] EMS Treatment Prior to ED Arrival: [facility] treatment: None Travel and Exposure Screening: Symptoms Does patient have any of these symptoms?: (not r ecorded) Exposure Screening Has patient had contact with someone with a communicable disease in the last month?: (not recorded) Diseases exposed to:: (not recorded) Is Patient ?: (not recorded) Exposure Date: (not recorded) Chief Complaint: Chief Complaint Patient presents with Shortness of Breath Chest Pain History of Present Illness: Maria De Jesus Acosta is a 58 year old female who presents to the ED for evaluation of chest pain and SOB X 3 days. Pain is pressure sensation rated at 6/10 at maximal intensity. Denies any leg swell ing or calf tenderness. Pt h as had a recent cardiac evaluation by her Offset Press Assistant, Dr Miller and reportedly negative per pt. Has also had a RUE DVT in March from PICC Line insertion that was treated wit h anticoagulation and now on Eliquis. Pt has hx of "nasal cancer" and is currently being treated with Radiation and Chemotx at [facility] History provided by: Relative and patient class a regional drivers used: No Chest Pain Pain location: Substernal area Pain quality: no pressure Pain radiates to: Does not radiate Pain severity: Moderate Onset quality: Gradual Duration: 3 days Timing: Intermittent Progression: Unchanged Chronicity: New Context: at rest Context: not breathing, not drug use, not lifting, not raising an arm, not stress and not trauma Relieved by: Nothing Worsened by: Exertion Ineffective treatments: Nitroglycerin Associated symptoms: shortness of breath Associated symptoms: no abdo melissa pain, no AICD problem, no altered mental status, no anorexia, no anxiety, no back pain, no claudication, no cough, no diaphoresis, no dizziness, no dysphagia, no fatigu e, no fever, no headache, no heartburn, no lower extremity edema, no nausea, no near-syncope, no numbness, no orthopnea, no palpitations, no PND, no syncope and no vomiting Risk factors: hypertension, obesity and prior DV T/PE Risk factors: no smoking Past Medical History/Immunizations: Past Medical History: Diagnosis Date Anxiety Back pain CHF (congestive heart failure) COPD (chronic obstructive pulmonary disease) Depression Gout HTN (hypertension) Neuropathy bilateral LE TIA (transient ischemic attack) X 2 Tetanus received in last 5 years: Unknown Childhood immunizations: Up-to-date Allergies: Allergies Allergen Reactions Doxycycline Nausea and/or Vomiting Other reaction(s): n/v, Nausea/Vomiting, Unknow n Metoclopramide Nausea and/or Vomiting and Unkno wn - See comments Told by anesthesiologist at she should add to her allergies following a procedure [place] Nausea and/or Vomiting And Kiwi And Kiwi Kiwi Unknown - See comments and Other - See com ments Reglan [Metoclopramide Hcl] Unknown - See comme nts Told by anesthesiologist at she should add to her allergies following a procedure [place] Juice Nausea and/or Vomiting Past Social History: Tobacco Use Former; 0.50 packs/day; Types: Cigarettes Smokeless Tobacco: Never used smokeless tobacco . Comments: Started at 25- end at 44 Vaping Use Never used Alcohol Use No. Drug Use No. Sexual Activity Not currently sexually acti ve; Partners: Male; Control/Protection: Abstinence. Past Surgical History: Past Surgical History: Procedure Laterality Date APPENDECTOMY CHOLECYSTECTOMY LAPAROSCOPIC GASTRIC SLEEVE (SHX) 08/2018 OTHER Gastric banding OTHER partial hysterectomy, c sec tion, surgery to shoulder and knee, lap band and it was removed, this sep 2017 had gastric sleeve Review of Systems: Review of Systems Constitutional: Negative. Ne gative for appetite change, chills, diaphoresis, fatigue and fever. HENT: Negative. Negative for trouble swallowing. Eyes: Negative. Respiratory: Positive for sh ortness of breath. Negative for cough, wheezing and stridor. Breasts: Negative. Cardiovascular: Positive for chest pain. Negative for palpitations, orthopnea, claudication, leg swelling, syncope, PND and near-syncope. Gastrointestinal: Negative. Negative for abdominal pain, anorexia, heartburn, nausea and vomiting. Genitourinary: Negative. Musculoskeletal: Negative. Negative for back mehnaz n. Skin: Negative. Neurological: Negative. Negative for dizziness, numbness and headaches. Psychiatric/Behavioral: Negative. Endocrine: Endocrine negative Physical Exam: ED Triage Vitals Weight 05/26/232100 145.2 kg (320 lb) Actual or estimated 05/26/232100 Actual Height 05/26/232100 1.6 m (5' 3") BP 05/26/232100 (!) 149/85 Pulse 05/26/232100 87 Resp 05/26/232100 20 Temp 05/26/231 36.1 ?C (96.9 ?F) Temp source 05/26/232100 Oral SpO2 05/26/232100 95 % Measured on 05/26/232100 Room air Physical Exam Vitals and nursing note reviewed. Constitutional: General: She is not in acute distress. Appearance: Normal appearan ce. She is obese. She is not ill-appearing, toxic- appearing or diaphoretic. HENT: Head: Normocephalic and atraumatic. Nose: No congestion or rhinorrhea. Mouth/Throat: Mouth: Mucous membranes are moist. Pharynx: Oropharynx is marleny r. No oropharyngeal exudate or posterior oropharyngeal erythema. Eyes: General: No scleral icterus. Right eye: No discharge. Left eye: No discharge. Extraocular Movements: Extraocular movements in tact. Conjunctiva/sclera: Conjunctivae normal. Pupils: Pupils are equal, round, and reactive t o light. Cardiovascular: Rate and Rhythm: Normal rate and regular rhythm . Pulses: Normal pulses. Heart sounds: Normal heart sounds. No murmur he angely. No friction rub. No gallop. Pulmonary: Effort: Pulmonary effort is normal. No respirat ory distress. Breath sounds: No stridor. No wheezing, rhonchi or rales. Chest: Chest wall: No tenderness. Abdominal: General: Bowel sounds are normal. There is no d istension. Palpations: There is no mass. Tenderness: There is no abd ominal tenderness. There is no right CVA tenderness, left CVA tenderness, guarding or rebound. Hernia: No hernia is present. Musculoskeletal: General: No swelling, tende rness, deformity or signs of injury. Normal range of motion. Cervical back: Normal range of motion and neck supple. No rigidity or tenderness. Lymphadenopathy: Cervical: No cervical adenopathy. Skin: General: Skin is warm. Capillary Refill: Capillary refill takes less t go 2 seconds. Coloration: Skin is not jaundiced or pale. Findings: No bruising, erythema, lesion or rash . Neurological: General: No focal deficit present. Mental Status: She is alert. Psychiatric: Behavior: Behavior normal. Thought Content: Thought content normal. Judgment: Judgment normal. Comments: Anxious Radiology: CT CHEST PULMONARY ANGIOGRAM Final Result Ordering physician: DESTINEY AMES Indication: Chest pain, short of breath for 3 da ys, history of recent right upper extremity DVT, history of nasal cavity can cer. Comparison: Chest radiograph dated Technique: CTA of the chest was performed follow ing the administration of intravenous contrast material. Three-dimensional reformats were generated following completion of the exam. CT scan was pe rformed according to ALARA (as low as reasonably achievable) policy. Findings: The visualized thyroid gland is within normal limits. There is no thoracic aortic aneurysm or dissection. The hear t is mildly enlarged without significant pericardial effusion. There is mild coronary arteriosclerosis. No filling defect is appreciat ed in the pulmonary arteries to the level of the proximal segmental arteries. There are small mediastinal lymph nodes, not individually meetin g criteria for pathologic enlargement. No acute process is identified in the upper abdo men. The patient is status post gastric sleeve procedure. No acute pulmonar y process is identified. Bone windows through the chest demonstrate no os seous destructive lesion. IMPRESSION Impression: No CTA evidence for pulmonary embolus. No acute pulmonary process. Mild cardiomegaly with mild coronary arterioscle rosis. Status post gastric sleeve procedure without com plicating features appreciated in the visualized proximal stomach. RL: 460 AFC: [id number] CHEST 1 VW Final Result Ordering physician: DESTINEY AMES Indication: Chest pain Comparison: None Technical quality: Limited by body habitus. Findings: Single AP view of the chest. The cardi opericardial silhouette is mildly enlarged. There is questionable blunting of the left costophrenic sulcus. The visualized bony thorax is intact. IMPRESSION Impression: Mild cardiomegaly Questionable blunting of the left costophrenic s ulcus. This may reflect scarring or small pleural effusion. END REPORT RL: 460 AF: [id number] Lab Results: Lab Results CBC WITH DIFF - Abnormal Result Value Ref Range WBC 6.84 4.30 - 11.10 10*3/?L RBC 4.72 3.93 - 5.25 10*6/?L HGB 15.2 (*) 11.6 - 15.0 g/dL HCT 43.7 35.7 - 45.2 % MCV 92.6 80.6 - 95.5 fL MCH 32.2 25.9 - 32.8 pg MCHC 34.8 31.6 - 35.1 g/dL RDW-SD 42.4 39.0 - 49.9 fL RDW-CV 12.4 12.0 - 15.5 % PLT 217 166 - 358 10*3/?L MPV 10.6 9.5 - 12.9 fL NRBC/100 WBC 0.0 0.0 - 10.0 /100 WBCs NRBC x10^3 <0.01 10*3/?L SEG % 46 33 - 76 % BAND % 4 (*) 0 - 1 % LYMPH % 32 14 - 54 % REACT LYMPH % 2 % MONO % 13 (*) 0 - 4 % EOS % 3 0 - 3 % ANC 3.42 1.88 - 7.09 10*3/uL COMP. METABOLIC PANEL (71827) - Abnormal NA 139 135 - 145 mmol/L K 3.6 3.5 - 5.0 mmol/L CL 99 98 - 108 mmol/L CO2 TOTAL 31 23 - 31 mmol/L AGAP 9 2 - 16 BUN 10 7 - 23 mg/dL GLUCOSE 151 (*) 70 - 110 mg/dL CREATININE 0.74 0.50 - 1.04 mg/dL TOTAL BILI 0.5 0.1 - 1.1 mg/dL CALCIUM 9.3 8.6 - 10.6 mg/dL T PROTEIN 7.7 6.3 - 8.2 g/dL ALBUMIN 4.2 3.5 - 5.0 g/dL ALK PHOS 98 34 - 122 U/L ALTv 41 (*) 5 - 35 U/L AST(SGOT) 41 (*) 13 - 40 U/L eGFR 81.2 mL/min/1.73m2 TROPONIN I - Normal TROPONIN I 0.003 <=0.034 ng/mL PROTHROMBIN TIME / INR - Normal PROTIME PATIENT 14.1 12.0 - 14.7 Seconds INR 1.1 N-TERMINAL PRO-BNP - Normal NT-proBNP 31 <=125 pg/mL Orders and Treatments: Orders Placed This Encounter Procedures XR CHEST [address] CHEST PULMONARY ANGIOGRAM CBC WITH DIFF COMP. METABOLIC PANEL (82180) TROPONIN I Prothrombin Time / INR N-TERMINAL PRO-BNP Orders Placed This Encounter Medications morpHINE (4 mg/mL) injection 4 mg aspirin chewable tablet 324 mg ondansetron (ZOFRAN (PF)) injection 4 mg iopamidol (ISOVUE 370-500 mL) injection 75 mL First Provider Eval: ED Events Date/Time Event User Comments 05/26/232107 Medical Screening Begins DESTINEY CRUMP -- 05/26/232107 First Provider Evaluation DESTINEY AMES MD -- ED COURSE Diagnosis/Impression as of 05/27/23 0026 Chest pain, unspecified type Dyspnea, unspecified type Procedures: Procedures MDM: Medical Decision Making Maria De Jesus Acosta is a 58 year old female with numerous medical conditions as listed above who presents to the ED with chest pain, SOB X 3 days Problems Addressed: Chest pain, unspecified type: acute illness or i njury Details: ED evaluationand management as docdanny lott Pt will be re-evaluated by her Offset Press Assistant, Dr Miller this morning Dyspnea, unspecified type: acute illness or inju ry Details: ED evaluation and management as docume nted in chart Amount and/or Complexity of Data Reviewed Independent Historian: spouse External Data Reviewed: labs, ECG and notes. Labs: ordered. Decision-making details documente d in ED Course. Radiology: ordered. Decision-making details docu mented in ED Course. ECG/medicine tests: ordered and independent inte rpretation performed. Details: EKG Interpreted by me as: NSR Rate 85 BPM Norml axiss Drug Abuse Program Coordinator ST elevation or Depression Discussion of management or test interpretation with external provider(s): Discussed presentation, laboratory EKG and imaging study result with pt's own abatement worker Dr Miller who will see pt in the office later this AM Risk OTC drugs. Prescription drug management. Parenteral controlled substances. Flowsheet Documentation: Scoring Tools: No data recorded Disposition/Condition: ED Disposition ED Disposition Disch - Home Condition Stable Comment -- Discharge Medications: Patient's Medications START taking these medications No medications on file CONTINUE taking these medications which have NOT CHANGED ALBUTEROL 90 MCG/ACTUATION INHALER Inhale 2 Puffs every 4 (four) hours as needed for Wheezing or Shortness of Breath. ALLOPURINOL 300 MG TABLET T humberto 1 tablet by mouth in the morning and 1 tablet in the evening. ALPRAZOLAM 2 MG TABLET Take 1 tablet by mouth 3 (three) times daily as needed. AMITIZA 24 MCG CAPSULE TK 1 C PO BID AMLODIPINE 5 MG TABLET Take 1 tablet by mouth i n the morning. ATORVASTATIN 20 MG TABLET Take 1 tablet by mout h in the morning. BD INSULIN SYRINGE U-500 1/ 2 ML 31 GAUGE X 15/64" SYRG USE 1 SYRINGE TWICE DAILY WITH MEALS. BD DEVORAH 2ND GEN PEN NEEDLE 32 GAUGE X 5/32" NDL E Take 10 mg by mouth. BENZONATATE 100 MG CAPSULE TAKE 1 CAPSULE BY MOUTH THREE TIMES DAILY NEEDED FOR COUGH CHOLECALCIFEROL, VITAMIN D3 , 50,000 UNIT CAPSULE Take 1 capsule by mouth weekly. CLONIDINE 0.1 MG TABLET Ernie e 1 tablet by mouth in the morning and 1 tablet at noon and 1 tablet in the evening. CODEINE-GUAIFENESIN 10-100 MG/5 ML ORAL SOLUTION TAKE 10 ML BY MOUTH TWICE DAILY NEEDED FOR COUGH COLCHICINE 0.6 MG TABLET Take 1 tablet by mouth in the morning. DICLOFENAC SODIUM 1 % GEL Apply to area(s) 3 (t hree) times daily. DICYCLOMINE 10 MG CAPSULE T K 1 C PO IN THE MORNING AND THEN Q 8 H PRF ABDOMINAL PAIN. FLUTICASONE PROPIONATE 50 M CG/ACTUATION NASAL SPRAY Use 2 Sprays in each nostril in the morning. GABAPENTIN 600 MG TABLET Ta ke 1 tablet by mouth in the morning and 1 tablet at noon and 1 tablet in the evening. HUMULIN 70/30 U-100 INSULIN 100 UNIT/ML (70-30) SUSPENSION ADMINISTER 70 UNITS UNDER THE SKIN EVERY MORNING THEN ADMINISTER 60 UNITS UNDER THE SKIN EVERY EVENING HYDRALAZINE 100 MG TABLET TAKE 1 TABLET BY MOUT H THREE TIMES DAILY HYDROCHLOROTHIAZIDE 12.5 MG CAPSULE TAKE 1 CAPS ULE BY MOUTH DAILY HYDROCODONE-ACETAMINOPHEN 1 0-325 MG TABLET Take 1 tablet by mouth every 6 (six) hours as needed for Pain (scale 4-6). Indications: chronic pain HYDROCODONE-ACETAMINOPHEN 7 .5-325 MG PER TABLET Take 1 tablet by mouth every 6 (six) hours as needed for Pain. Indications: chronic pain HYDROCORTISONE 1 % CREAM AP PLY TWICE DAILY IN AND AROUND THE RECTUM AFTER SITZ BATH INSULIN SYRINGE-NEEDLE U-10 0 1 ML 31 GAUGE X 5/16 SYRG USE TWICE DAILY WITH MEALS INSULIN SYRINGE-NEEDLE U-100 1 ML 31 X 3/8" SYR G Use as directed IPRATROPIUM 0.02 % NEBULIZER SOLUTION LISINOPRIL 40 MG TABLET TAKE 1/2 TABLET BY MOUT H TWICE DAILY MESALAMINE 0.375 GRAM 24 HR CAPSULE Take 1.5 g by mouth daily. METFORMIN 1,000 MG TABLET T humberto 1 tablet by mouth in the morning and 1 tablet in the evening. Take with meals. METOPROLOL SUCCINATE XL 50 MG 24 HR TABLET Take 1 tablet by mouth in the morning and 1 tablet in the evening. METOPROLOL TARTRATE 100 MG TABLET TAKE 1 TABLET BY MOUTH TWICE DAILY MIRTAZAPINE 15 MG TABLET Take 15 mg by mouth at bedtime. MOTEGRITY TABLET TK 1 T PO D [id number] TISONE OTIC SOLUTION INSTILL 4 DROPS TO AFFECTED EAR FOUR TIMES DAILY NITROGLYCERIN 0.4 [address] GUAL TABLET PL[address] 1 TABLET UNDER THE TONGUE EVERY 5 MINUTES NEEDED FOR CHEST PAIN. ONDANSETRON 4 MG DISINTEGRA TING TABLET DISSOLVE 1 TABLET ON THE TONGUE EVERY 8 HOURS NEEDED ONDANSETRON 4 MG TABLET as needed. OSELTAMIVIR 75 MG CAPSULE TAKE ONE (1) CAPSULE( S) BY MOUTH TWICE A DAY. PANTOPRAZOLE 40 MG EC TABLET Take 1 tablet by m outh 2 (two) times daily. PREDNISONE 10 MG TABLET Take 10 mg by mouth darron ly. RIZATRIPTAN 5 MG DISINTEGRA TING TABLET Take 1 tablet by mouth as needed for Migraine (take 1 on onset of migraine and can repeat in 2 hrs). May repeat in 2 hours if needed SPIRONOLACTONE 25 MG TABLET Take 25 mg by mouth daily. SUCRALFATE 1 GRAM TABLET Take 1 tablet by mouth before meals and at bedtime. TRELEGY ELLIPTA 100-62.5-25 MCG DSDV INHALE 1 P UFF BY MOUTH EVERY DAY TRIAMCINOLONE ACETONIDE 0.1 % CREAM APPLY TOPICALLY TO THE AFFECTED AREA TWICE DAILY TRUEPLUS INSULIN 1 ML 30 GAUGE X 5/16 SYRG USE TWICE DAILY VICTOZA 3-PATRICK 0.6 MG/0.1 ML (18 MG/3 ML) INJECTION INJECT 1.8 MG UNDER THE SKIN DAILY XIFAXAN 550 MG TABLET as needed. ZOLPIDEM 10 MG TABLET Take 10 mg by mouth at be dtime as needed. START taking Modified Medications as Prescribed No medications on file STOP taking these medications No medications on file Follow-up: Contact information for follow-up Nereida Sheriff MD Specialty: FM-FAMILY MEDICINE Relationship: PCP - General [address] [facility] [id number] Naa Miller MD Specialty: IM-CARDIOVASCULAR DISEASE [address] [facility] [id number] Electronically signed by: Destiney Ames MD 05/27/23 0026 . [facility] 2020-08-23 [id number] [facility] 08:52:00-00:00 [facility] [id number] [place] [id number] PATIENT NAME: MARIA DE JESUS ACOSTA ADMIT DATE: 0 ACCOUNT NO: [id number] ROOM NO: AGE: 55 REPORT TYPE: OPERATIVE REPORT SEX: F ADMITTING PHYSICIAN: ATTENDING PHYSICIAN: Tapan Harper MD OPERATION DATE: 08/23/2020 PREOPERATIVE DIAGNOSES: Coli tis, colonic ulceration surveillance ____ progress. POSTOPERATIVE DIAGNOSIS: See below. PROCEDURES: 1. Colonoscopy. 2. Segmental biopsy for colon x 3 biopsy bottle. SURGEON: Tapan Harper MD CAREER SERVICES REPRESENTATIVE: ANESTHESIA: Administered by department of anesth esia. INDICATION: Colitis, colonic ulceration surveill ance ____ progress. COMPLEXITY: Moderate. TOLERANCE TO ANESTHESIA: Excellent. PREP: Manito prep right 2/3, mid 2/3, left 2/3, [...] h owever, not totally resolved. PATIENT NAME: MARIA DE JESUS ACOSTA [id number] Having done the above procedure [...] above. Dictated By: Tapan Harper MD WT: OP:L.RENETTA/MEANI/NTS Conf#: [id number]/DID#: [id number] Authenticated by Tapan Harper MD On 08/30/2020 08:30:15 AM at 0830 PATIENT NAME: MARIA DE JESUS ACOSTA [id number] 2020-08-22 [id number] [facility] 10:59:00-00:00 [facility] [address] [place] [address] PATIENT NAME: MARIA DE JESUS ACOSTA ADMIT DATE: 0 ACCOUNT NO: [id number] ROOM NO: AGE: 55 REPORT TYPE: eELECTROCARDIOGRAM SEX: F ADMITTING PHYSICIAN: ATTENDING PHYSICIAN: Tapan Harper MD Order: [id number] Test Reason : PRE OP Test Date/Time [...] ECGs available Confirmed by JOHNATHON THOMPSON MD ([id number]) on 11/05/2019 10:27:01 PM Referred By: Tapan Harper Confirmed by:JOHNATHON SANTIZO MD at 9237 PATIENT NAME: MARIA DE JESUS ACOSTA [id number] 2019[facility]12-11 [facility] ([facility]) Post Anesthesia Evaluation REPORT#:[id number] REPORT STATUS: Signed DATE:12/11/19 TIME:1059 PATIENT: MARIA DE JESUS ACOSTA UNIT #: [id number] ROOM/BED: : 67 AGE: 54 SEX: F ATTEND: Leticia Rodriguez MD ADM AUTHOR: Gini Nieves MD * ALL edits or amendments must be made on the el [employer]/computer document * General Post-op: post surgery rounds [...] Room air 12/11 945 O2 Flow Rate [id number] 12/11 945 Pulse 79 12/11 945 Resp [...] MD on 12/02 at 1100 RPT #: [id number] END OF REPORT 2019-12-11 [id number] [facility] 07:49:00-00:00 [facility] [id number] [place] [id number] PATIENT NAME: MARIA DE JESUS ACOSTA ADMIT DATE: ACCOUNT NO: [id number] ROOM NO: AGE: 54 REPORT TYPE: OPERATIVE REPORT SEX: F ADMITTING PHYSICIAN: ATTENDING PHYSICIAN: Zacarias Rodriguez MD OPERATION DATE: 12/11/2019 PREOPERATIVE DIAGNOSIS: POSTOPERATIVE DIAGNOSIS: PROCEDURES: 1. EGD. 2. Biopsy from gastric body and antrum. 3. Biopsy from distal esophagus. SURGEON: Tapan Harper MD CAREER SERVICES REPRESENTATIVE: ANESTHESIA: Anesthesia by departmental anesthesi a. INDICATION [...] fatalities, aspiration, etc. explained to the responsible republican, consent was obtained. She was placed in [...] this area has been done. PATIENT NAME: MARIA DE JESUS ACOSTA 1832 Gastric visualization was re ally [...] By: Tapan Harper MD WT: OP:L.HIM/MEANI/NTS Conf#: [id number]/DID#: [id number] Authenticated by Tapan Harper MD On 12/14/2019 02:52:57 PM at 1453 PATIENT NAME: MARIA DE JESUS ACOSTA [id number] 2015-10-24 CT SCAN OF THE ABDOMEN AND PELVIS WITH CONTRAST: MORRIS BONE [place] 11:25:00-00:00 DISCUSSION: The study is a preoperative [...] OF THE ABDOMEN AND PELVIS WITH CONTRAST: SMITHA [place] 11:25:00-00:00 DISCUSSION: The study is a [...] OF THE ABDOMEN AND PELVIS WITH CONTRAST: MAYRAAshely [place] 11:25:00-00:00 DISCUSSION: The study is [...]
--- NOTE | 2023-06-10 07:19 | EDPHYS ---
Physician Documentation [facility] Name: Maria De Jesus Acosta Age: 58 yrs Sex: Female : 1965 Arrival Date: 06/10/2023 Time: 05:04 Bed 7 Private MD: MAYNOR Physician Dominguez Voss HPI: 06/10 05:35 This 58 yrs old Female presents to ER via Wheelchair with complaints of ebenezer Breathing Difficulty, Headache. 05:35 The patient has shortness of breath at rest, with light activity. Onset: The ebenezer symptoms/episode began/occurred just prior to arrival, this morning. Duration: The symptoms are chronic, are continuous, and are steadily getting worse. The patient's shortness of breath is aggravated by nothing, is alleviated by nothing. 05:35 The patient complains of pain to the forehead, right eye and left eye. The patient ebenezer describes the headache as aching, constant. Onset: The symptoms/episode began/occurred just prior to arrival. Associated signs and symptoms: Pertinent positives: dizziness, nausea. Severity of symptoms: At its worst the pain was moderate, in the emergency department the pain is unchanged. Headache History: The patient has had previous headaches and this one is similar to previous episodes. Associated signs and symptoms: The patient has no apparent associated signs or symptoms. Historical: - Allergies: 05:24 Doxycycline; lg3 05:24 kiwi; lg3 05:24 metoclopramide HCl; lg3 05:24 orange juice; lg3 05:24 Reglan; lg3 - PMHx: 05:24 Asthma; CHF; COPD; Crohn's; Diabetes - NIDDM; Hypertension; Nasal cancer; lg3 - PSHx: 05:24 Appendectomy; Cholecystectomy; Ligation of fallopian tube; Shoulder; partial lg3 hysterectomy; - Immunization history:: Adult Immunizations up to date, Client reports receiving the 2nd dose of the Covid vaccine. - Social history:: Smoking status: Patient denies any tobacco usage or history of. Patient/guardian denies using alcohol, street drugs. - Family history:: not pertinent. ROS: 05:35 Constitutional: Negative for fever, chills, and weight loss, Eyes: Negative for injury, ebenezer pain, redness, and discharge, ENT: Negative for injury, pain, and discharge, Neck: Negative for injury, pain, and swelling, Cardiovascular: Negative for chest pain, palpitations, and edema, Respiratory: Negative for shortness of breath, cough, wheezing, and pleuritic chest pain, Abdomen/GI: Negative for abdominal pain, nausea, vomiting, diarrhea, and constipation, Back: Negative for injury and pain, : Negative for injury, bleeding, discharge, and swelling, MS/Extremity: Negative for injury and deformity, Skin: Negative for injury, rash, and discoloration, Neuro: Negative for headache, weakness, numbness, tingling, and seizure, Psych: Negative for depression, anxiety, suicide ideation, homicidal ideation, and hallucinations, Allergy/Immunology: Negative for hives, rash, and allergies, Endocrine: Negative for neck swelling, polydipsia, polyuria, polyphagia, and marked weight changes, Hematologic/Lymphatic: Negative for swollen nodes, abnormal bleeding, and unusual bruising. 05:35 MS/extremity: Negative for acute changes. Exam: 05:35 Constitutional: This is a well developed, well nourished patient who is awake, alert, ebenezer and in no acute distress. Head/Face: Normocephalic, atraumatic. Eyes: Pupils equal round and reactive to light, extra-ocular motions intact. Lids and lashes normal. Conjunctiva and sclera are non-icteric and not injected. Cornea within normal limits. Periorbital areas with no swelling, redness, or edema. ENT: Nares patent. No nasal discharge, no septal abnormalities noted. Tympanic membranes are normal and external auditory canals are clear. Oropharynx with no redness, swelling, or masses, exudates, or evidence of obstruction, uvula midline. Mucous membranes moist. Neck: Trachea midline, no thyromegaly or masses palpated, and no cervical lymphadenopathy. Supple, full range of motion without nuchal rigidity, or vertebral point tenderness. No Meningismus. Chest/axilla: Normal chest wall appearance and motion. Nontender with no deformity. No lesions are appreciated. Cardiovascular: Regular rate and rhythm with a normal S1 and S2. No gallops, murmurs, or rubs. Normal PMI, no JVD. No pulse deficits. Respiratory: Lungs have equal breath sounds bilaterally, clear to auscultation and percussion. No rales, rhonchi or wheezes noted. No increased work of breathing, no retractions or nasal flaring. Abdomen/GI: Soft, non-tender, with normal bowel sounds. No distension or tympany. No guarding or rebound. No evidence of tenderness throughout. Back: No spinal tenderness. No costovertebral tenderness. Full range of motion. Female : Normal external genitalia. Skin: Warm, dry with normal turgor. Normal color with no rashes, no lesions, and no evidence of cellulitis. MS/ Extremity: Pulses equal, no cyanosis. Neurovascular intact. Full, normal range of motion. Neuro: Awake and alert, GCS 15, oriented to person, place, time, and situation. Cranial nerves II-XII grossly intact. Motor strength 5/5 in all extremities. Sensory grossly intact. Cerebellar exam normal. Normal gait. Psych: Awake, alert, with orientation to person, place and time. Behavior, mood, and affect are within normal limits. 06:24 ECG was reviewed by the Attending Physician. [facility] Vital Signs: 05:21 BP 149 / 89; Pulse 86; Resp 15; Temp 98.5(O); Pulse Ox 96% on R/A; Weight 148.32 kg lg3 (M); Height 5 ft. 3 in. (R); Pain 10/10; 05:55 BP 165 / 95; Pulse 85; Resp 18; Pulse Ox 99% on R/A; kd3 06:04 BP 161 / 81; Pulse 86; Resp 19 S; Pulse Ox 97% on R/A; lg3 07:01 BP 151 / 85; Pulse 96; Resp 20; Pulse Ox 92% on R/A; kd3 07:20 BP 146 / 89; Pulse 94; Resp 20; Pulse Ox 91% on R/A; ko1 08:52 BP 139 / 74; Pulse 92; Resp 18; Pulse Ox 95% on R/A; ko1 05:21 Body Mass Index 57.92 (148.32 kg, 160.02 cm) lg3 05:21 Pain Scale: Adult lg3 [place] Coma Score: 05:37 Eye Response: spontaneous(4). Motor Response: obeys commands(6). Verbal Response: ebenezer oriented(5). Total: 15. MDM: 05:11 Patient medically screened. ebenezer 05:37 Differential diagnosis: Anemia asthma, CHF exacerbation, Chronic Obstructive Pulmonary ebenezer Disease cervical epidural bleed, cluster headache, cerebral vascular accident, epidural hematoma, hyponatremia, intracerebral hemorrhage, migraine, neoplasm, sinusitis, subarachnoid bleed, subdural hematoma, temporal arteritis, tension headache, traumatic injuries, trigeminal neuralgia, uremia, vasomotor headache, Myocardial Infarction pneumonia, Psychogenic pulmonary edema, Pulmonary Embolism reactive airway disease, Sepsis Unstable Angina. Antibiotic administration: Levaquin given. Immunization status: Influenza vaccine: within last 5 years. Data reviewed: vital signs, nurses notes, EMS record, lab test result(s), EKG, radiologic studies, CT scan, plain films. Consideration of Admission/Observation Escalation of care including admission/observation considered. I considered the following discharge prescriptions or medication management in the emergency department Medications were administered in the Emergency Department. See MAR. Test considered but Not performed: Ultrasound no abd usg. 06/10 05:29 Order name: Basic Metabolic Panel; Complete Time: 07:06/10 05:29 Order name: CBC with Diff; Complete Time: 07:06/10 05:29 Order name: LFT's; Complete Time: 07:06/10 05:29 Order name: Magnesium; Complete Time: 07:06/10 05:29 Order name: NT PRO-BNP; Complete Time: 07:06/10 05:29 Order name: PT-INR; Complete Time: 07:06/10 05:29 Order name: Troponin HS; Complete Time: 07:06/10 05:29 Order name: XRAY Chest (1 view) 06/10 05:29 Order name: CT Head Brain wo Cont 06/10 05:29 Order name: EKG; Complete Time: 05:29 06/10 05:29 Order name: Cardiac monitoring; Complete Time: 05:34 06/10 05:29 Order name: EKG - Nurse/Tech; Complete Time: 06:03 06/10 05:29 Order name: IV Saline Lock; Complete Time: 06:03 06/10 05:29 Order name: Labs collected and sent; Complete Time: 06:03 06/10 05:29 Order name: O2 Per Protocol; Complete Time: 06:03 06/10 05:29 Order name: O2 Sat Monitoring; Complete Time: 06:03 06/10 07:55 Order name: PO challenge: juice; Complete Time: 08:05 ebenezer EC:24 Rate is 85 beats/min. Rhythm is regular. QRS [place] is Normal. IA interval is normal. QRS ebenezer interval is normal. QT interval is normal. No Q waves. T waves are Normal. No ST changes noted. Clinical impression: NSR w/ Non-specific ST/T Changes and No evidence of ischemia. Interpreted by me. Reviewed by me. Administered Medications: 06:02 Drug: Ipratropium Inhalation Aerosol 0.5 mg Route: Inhalation; lg3 06:02 Drug: HYDROmorphone IVP 1 mg Route: IVP; Site: right antecubital; lg3 06:02 Drug: Ondansetron IVP 8 mg Route: IVP; Site: right antecubital; lg3 06:03 Drug: NS 0.9% IV 1000 ml Route: IV; Rate: 125 ml/hr; Site: right antecubital; lg3 06:03 Drug: MethylPrednisoLONE IVP 125 mg Route: IVP; Site: right antecubital; lg3 06:03 Drug: predniSONE PO 40 mg Route: PO; lg3 06:03 Drug: Levalbuterol Inhalation 3.75 mg Route: Inhalation; lg3 07:15 Drug: Magnesium Sulfate IVPB 2 grams Route: IVPB; Infused Over: 2 hrs; Site: right ko1 antecubital; 07:24 Drug: Potassium PO Effervescent Tablet 25 mEq Route: PO; ko1 Disposition Summary: 06/10/23 07:18 Discharge Ordered Location: Home ebenezer Problem: new ebenezer Symptoms: have improved ebenezer Condition: Stable ebenezer Diagnosis - Headache ebenezer - Obesity, unspecified ebenezer - COPD/ Chronic obstructive pulmonary disease, unspecified ebenezer - Hypomagnesemia ebenezer - Hypokalemia ebenezer Followup: ebenezer - With: Private Physician - When: 2 - 3 days - Reason: Recheck today's complaints, Continuance of care, Re-evaluation by your physician Discharge Instructions: - Discharge Summary Sheet ebenezer - Chronic Bronchitis, Adult ebenezer - Chronic Obstructive Pulmonary Disease ebenezer - Potassium Content of Foods ebenezer - Hypomagnesemia ebenezer - Chronic Obstructive Pulmonary Disease Exacerbation ebenezer - Migraine Headache, [id number] ebenezer - Hypokalemia ebneezer Forms: - Medication Reconciliation Form ebenezer - Thank You Letter ebenezer - Antibiotic Education ebenezer - Prescription Opioid Use ebenezer - Patient Portal Instructions ebenezer Prescriptions: - Fioricet with Codeine 60-164-29-30 mg Oral capsule - take 2 capsule by ORAL route every 6 hours as needed for pain; do not exceed 6 ebenezer caps per day; 15 capsule; Refills: 0, Product Selection Permitted - albuterol sulfate 90 mcg/actuation Inhalation HFA Aerosol Inhaler - inhale 2 inhalation by INHALATION route every 4-6 hours as needed for shortness ebenezer of breath or wheezing; 1 unit; Refills: 0, Product Selection Permitted - Albuterol Sulfate 2.5 mg /3 mL (0.083 %) Inhalation Solution for Nebulization - inhale 1 unit by NEBULIZATION route every 8 hours As needed; 25 unit; Refills: ebenezer 0, Product Selection Permitted - Prednisone 20 mg Oral Tablet - take 2 tablets by ORAL route once daily for 5 days; 10 tablet; Refills: 0, ebenezer Product Selection Permitted Signatures: Dispatcher [employer] Dominguez Henry MD MD cha Gibson, Lacie, RN RN lg3 Marycarmen Gale RN RN ko1
--- NOTE | 2023-06-10 07:19 | ER ---
Nurse's Notes [facility] Name: Maria De Jesus Acosta Age: 58 yrs Sex: Female : 1965 Arrival Date: 06/10/2023 Time: 05:04 Bed 7 Private MD: Diagnosis: Headache;Obesity, unspecified;COPD/ Chronic obstructive pulmonary disease, unspecified;Hypomagnesemia;Hypokalemia Presentation: 06/10 05:21 Chief complaint: Patient states: headache and SOB X1 hour. i have nasal cancer and im lg3 in pain. pain 08/10. Coronavirus screen: Client denies travel out of the [place] in the last 14 days. At this time, the client does not indicate any symptoms associated with coronavirus-19. Ebola Screen: No symptoms or risks identified at this time. Initial Sepsis Screen: Does the patient meet any 2 criteria? No. Patient's initial sepsis screen is negative. Does the patient have a suspected source of infection? No. Patient's initial sepsis screen is negative. Risk Assessment: Do you want to hurt yourself or someone else? Patient reports no desire to harm self or others. Onset of symptoms was June 10, 2023. 05:21 Method Of Arrival: Wheelchair lg3 05:21 Acuity: EMERALD 3 lg3 Triage Assessment: 05:24 General: Appears in no apparent distress. uncomfortable, Behavior is calm, cooperative. lg3 Pain: Complains of pain in nasal cavity. EENT: No deficits noted. Reports pain in nose. Neuro: No deficits noted. [place] Agitation-Sedation Scale (RASS): 0 - Alert and Calm Level of Consciousness is awake, alert, obeys commands, Oriented to person, place, time, situation, Reports headache. Cardiovascular: No deficits noted. Capillary refill < 3 seconds Clubbing of nail beds is absent JVD is absent Patient's skin is warm and dry. Respiratory: Reports shortness of breath at rest on exertion Onset: The symptoms/episode began/occurred just prior to arrival, the patient has mild shortness of breath. GI: No deficits noted. No signs and/or symptoms were reported involving the gastrointestinal system. Abdomen is round non-distended, obese. : No deficits noted. No signs and/or symptoms were reported regarding the genitourinary system. Derm: No deficits noted. No signs and/or symptoms reported regarding the dermatologic system. Skin is intact, is healthy with good turgor, Skin is dry, Skin is normal, Skin temperature is warm. Musculoskeletal: No deficits noted. No signs and/or symptoms reported regarding the musculoskeletal system. Circulation, motion, and sensation intact. Range of motion: intact in all extremities. Historical: - Allergies: 05:24 Doxycycline; lg3 05:24 kiwi; lg3 05:24 metoclopramide HCl; lg3 05:24 orange juice; lg3 05:24 Reglan; lg3 - PMHx: 05:24 Asthma; CHF; COPD; Crohn's; Diabetes - NIDDM; Hypertension; Nasal cancer; lg3 - PSHx: 05:24 Appendectomy; Cholecystectomy; Ligation of fallopian tube; Shoulder; partial lg3 hysterectomy; - Immunization history:: Adult Immunizations up to date, Client reports receiving the 2nd dose of the Covid vaccine. - Social history:: Smoking status: Patient denies any tobacco usage or history of. Patient/guardian denies using alcohol, street drugs. - Family history:: not pertinent. Screenin:28 [facility] ED Fall Risk Assessment (Adult) History of falling in the last 3 months, lg3 including since admission No falls in past 3 months (0 pts). Abuse screen: Denies threats or abuse. Denies injuries from another. Nutritional screening: No deficits noted. Tuberculosis screening: No symptoms or risk factors identified. Assessment: 05:28 General: see triage assessment . lg3 05:28 Cardiovascular: Rhythm is sinus rhythm. Respiratory: Airway is patent Respiratory lg3 effort is even, unlabored, Respiratory pattern is regular, symmetrical, Breath sounds with wheezes bilaterally. 06:03 Reassessment: Patient appears in no apparent distress at this time. No changes from lg3 previously documented assessment. Patient and/or family updated on plan of care and expected duration. Pain level reassessed. Patient is alert, oriented x 3, equal unlabored respirations, skin warm/dry/pink. 07:16 Reassessment: Patient appears in no apparent distress at this time. Patient and/or ko1 family updated on plan of care and expected duration. Pain level reassessed. Patient is alert, oriented x 3, equal unlabored respirations, skin warm/dry/pink. Vital Signs: 05:21 BP 149 / 89; Pulse 86; Resp 15; Temp 98.5(O); Pulse Ox 96% on R/A; Weight 148.32 kg lg3 (M); Height 5 ft. 3 in. (R); Pain 10/10; 05:55 BP 165 / 95; Pulse 85; Resp 18; Pulse Ox 99% on R/A; kd3 06:04 BP 161 / 81; Pulse 86; Resp 19 S; Pulse Ox 97% on R/A; lg3 07:01 BP 151 / 85; Pulse 96; Resp 20; Pulse Ox 92% on R/A; kd3 07:20 BP 146 / 89; Pulse 94; Resp 20; Pulse Ox 91% on R/A; ko1 08:52 BP 139 / 74; Pulse 92; Resp 18; Pulse Ox 95% on R/A; ko1 05:21 Body Mass Index 57.92 (148.32 kg, 160.02 cm) lg3 05:21 Pain Scale: Adult lg3 [place] Coma Score: 05:37 Eye Response: spontaneous(4). Motor Response: obeys commands(6). Verbal Response: ebenezer oriented(5). Total: 15. ED Course: 05:06 Patient arrived in ED. ag3 05:10 Dominguez Voss MD is Attending Physician. ebenezer 05:21 Ginna Valenzuela, RN is Primary Nurse. lg3 05:24 Triage completed. lg3 05:24 Arm band placed on right wrist. lg3 05:28 Patient has correct armband on for positive identification. Placed in gown. Bed in low lg3 position. Call light in reach. Side rails up X 1. Client placed on continuous cardiac and pulse oximetry monitoring. NIBP monitoring applied. phototypesetting equipment monitor on. Door closed. Noise minimized. Warm blanket given. 05:28 Patient maintains SpO2 saturation greater than 95% on room air. lg3 05:47 XRAY Chest (1 view) In Process Unspecified. EDMS 06:47 CT Head Brain wo Cont In Process Unspecified. EDMS 08:52 Provided Education on: NA. ko1 08:52 No provider procedures requiring assistance completed. ko1 09:05 IV discontinued, intact, bleeding controlled, No redness/swelling at site. Pressure ko1 dressing applied. Administered Medications: 06:02 Drug: Ipratropium Inhalation Aerosol 0.5 mg Route: Inhalation; lg3 06:02 Drug: HYDROmorphone IVP 1 mg Route: IVP; Site: right antecubital; lg3 06:02 Drug: Ondansetron IVP 8 mg Route: IVP; Site: right antecubital; lg3 06:03 Drug: NS 0.9% IV 1000 ml Route: IV; Rate: 125 ml/hr; Site: right antecubital; lg3 06:03 Drug: MethylPrednisoLONE IVP 125 mg Route: IVP; Site: right antecubital; lg3 06:03 Drug: predniSONE PO 40 mg Route: PO; lg3 06:03 Drug: Levalbuterol Inhalation 3.75 mg Route: Inhalation; lg3 07:15 Drug: Magnesium Sulfate IVPB 2 grams Route: IVPB; Infused Over: 2 hrs; Site: right ko1 antecubital; 07:24 Drug: Potassium PO Effervescent Tablet 25 mEq Route: PO; ko1 Medication: 05:55 VIS not applicable for this client. kd3 Outcome: 07:18 Discharge ordered by MD. sol 09:05 Discharged to home via wheelchair, with family. ko1 09:05 Condition: improved 09:05 Discharge instructions given to patient, family, Instructed on discharge instructions, follow up and referral plans. medication usage, Demonstrated understanding of instructions, follow-up care, medications, Prescriptions given X 4. 09:06 Patient left the ED. ko1 Signatures: Dispatcher [employer] Dominguez Henry MD MD cha Gomez, Alice ag3 Gibson, Lacie, RN RN lg3 Nohelia Wadsworth RN RN kd3 Marycarmen Gale RN RN ko1
[2023-06-10] MEDS ORDERED: Magnesium Sulfate 2gm IVPB 2 G/50 ML BAG IV ONE (07:23)
[2023-06-10] MEDS ORDERED: POTASSIUM 25 MEQ EFFERV TAB ONE (07:32)
--- NOTE | 2023-06-10 08:27 | RAD REPORT ---
EXAM DESCRIPTION: CT - Head Brain Wo Cont - 06/10/2023 6:44 am CLINICAL HISTORY: HEADACHE Headache, drowsiness COMPARISON: HEAD BRAIN W O CONTRAST dated 09/21/2015; HEAD BRAIN W O CONTRAST dated 04/10/2015 TECHNIQUE: All CT scans are performed using dose optimization technique as appropriate and may inclu de automated exposure control or mA/KV adjustment according to patient size. FINDINGS: No intracranial hemorrhage, hydrocephalus or extra-axial fluid collection.No areas of brai n edema or evidence of midline shift. The paranasal sinuses and mastoids are clear. The calvarium is intact. IMPRESSION: No acute intracranial abnormality.
[2023-06-10 09:11] VITALS: TEMP 98.5
[2023-06-10 09:16] VITALS: BP 139/74; O2SAT 95
--- NOTE | 2023-06-10 19:41 | RAD REPORT ---
EXAM DESCRIPTION: XR Chest, 1 View CLINICAL HISTORY: The patient is 58 years old and is Female; COPD TECHNIQUE: Frontal view of the chest. COMPARISON: No relevant prior studies available. FINDINGS: Lungs: Prominent interstitial and vascular markings. Hazy opacification of the left lung base. Pleural space: Unremarkable. No pneumothorax. Heart: Unremarkable. Mediastinum: Unremarkable. Bones/joints: Unremarkable. IMPRESSION: Prominent interstitial and vascular markings. Hazy opacification of the left lung base. Electronically signed by: Maximus Baker MD 06/10/2023 6:18 AM CDT Due to temporary technical issues with the PACS/Fluency reporting system, reports are being signed by the in house radiologists without review as a courtesy to insure prompt reporting. The interpreting radiologist is fully responsible for the content of the report.
--- NOTE | 2023-06-13 15:37 | EKG ---
Test Date: 2023-06-10 Test Time: 05:59:33 [employer]ugs: [place] MEASUREMENT RESULTS: Intervals: Rate: 85 CT: 176 QRSD: 78 QT: 392 QTc: 466 [place]: P: 26 CT: 176 QRS: 6 T: 23 INTERPRETIVE STATEMENTS: Normal sinus rhythm Cannot rule out Anterior infarct, age undetermined Abnormal ECG Compared to ECG 05/18/2023 13:37:26 No significant changes Electronically Signed On 06-13-23 15:32:51 CDT by Alhaji Loya
== END 2023-06-10 09:06 | disposition home or self-care (01) ==
LOC: ER 05:04
DX: R51.9 Headache, unspecified (principal); J44.9 Chronic obstructive pulmonary disease, unspecified; E66.9 Obesity, unspecified; Z68.43 Body mass index [BMI] 50.0-59.9, adult; E87.6 Hypokalemia; E83.42 Hypomagnesemia; I10 Essential (primary) hypertension; I50.9 Heart failure, unspecified; Z88.1 Allergy status to other antibiotic agents; Z88.8 Allergy status to other drugs, medicaments and biological substances; Z91.018 Allergy to other foods
CPT/HCPCS: 93005; 85025; 80048; 36415; 83735; 85610; 80076; 84484; 83880; 70450; 71045; 96375; 96374; 99285; J7512; J3475; J7614; J7644; J1170; J2930; J2405; J7030

== ENCOUNTER 2023-06-15 07:55 | Day surgery (SDC) | payer OTHER ==
[2023-06-15] MEDS ORDERED: NA CHLORIDE 0.9% 1,000 ML ONE (08:20)
[2023-06-15] MEDS ORDERED: GLYCOPYRROLATE 0.2 MG/ML SYR ONE (09:05)
[2023-06-15] MEDS ORDERED: LIDOCAINE 1% MPF 2 ML AMPULE ONE (09:05)
[2023-06-15] MEDS ORDERED: propofoL 200 MG/20 ML VIAL IV ONE ×3 (09:05→09:45)
[2023-06-15] MEDS ORDERED: MIDAZOLAM HCL 2 MG/2 ML INJ ONE (09:12)
[2023-06-15] MEDS ORDERED: ONDANSETRON 4 MG/2 ML VIAL ONE (09:14)
[2023-06-15] MEDS ORDERED: NA CIT/CITRIC AC 30 ML ORAL UDC ONE (09:18)
[2023-06-15 13:28] VITALS: TEMP 97.2
[2023-06-15 13:36] VITALS: O2SAT 94
[2023-06-15 13:42] VITALS: BP 151/84
== END 2023-06-15 10:50 | disposition home or self-care (01) ==
LOC: OR 07:55
PROVIDERS: ATTEND Internal Medicine Gastroenterology
PROC: 0DBN8ZX Excision of Sigmoid Colon, Via Natural or Artificial Opening Endoscopic, Diagnostic (ICD-10-PCS; 2023-06-15)
PROC: 0DBM8ZX Excision of Descending Colon, Via Natural or Artificial Opening Endoscopic, Diagnostic (ICD-10-PCS; 2023-06-15)
PROC: 0DBK8ZX Excision of Ascending Colon, Via Natural or Artificial Opening Endoscopic, Diagnostic (ICD-10-PCS; principal; 2023-06-15 09:00)
DX: K92.1 Melena (principal); K52.9 Noninfective gastroenteritis and colitis, unspecified; R10.84 Generalized abdominal pain; K59.00 Constipation, unspecified; K63.3 Ulcer of intestine; D12.2 Benign neoplasm of ascending colon; D12.4 Benign neoplasm of descending colon
CPT/HCPCS: 45380; 88305; J2704 ×3; J2250; J2405; J7030

== ENCOUNTER 2023-07-01 18:29 | Emergency (ER) | payer OTHER ==
--- OUTSIDE RECORDS SUMMARY | 2023-07-01 18:53 | XMS REPORT | Clinical Summary ---
:1965 Author Organization [facility] MD [facility] Center Address [address] [place] [address] Care Team Providers Name Role Phone Bina Obando MD Unavailable Kenya Agarwal MD Primary Care Provider Trent Irving MD Unavailable Randall Sheriff MD Unavailable Vignesh Waddell MD Unavailable Naa Miller MD [facility] Rafael Rosas MD Unavailable [...] procedure Metoclopramide Hcl Other (See 10/16/2022 Comments) [place] Juice Nausea And Low 04/18/2021 Vomiting, GI [...] Active (Easy Comfort Pen insulin 4 23 [place]) 31 gauge x times a day 03/16" [...] basilic veins, Thrombosis of left cephalic vein, jail use of anticoagulant gabapentin (NEURONTIN) TAKE 1 [...] day mellitus with with meals. hyperglycemia semaglutide 2 mg/dose Inject 2 mg 3 mL 5 06/22/20 Active (8 mg/3 mL) under the skin pnijIndications: Type [...] dicyclomine (BENTYL) TAKE 1 CAPSULE 0 10/12/2012/31 02 Discontinued 10 mg capsule BY MOUTH EVERY [...] unit/mL (Stop Taking at (70-30) injection Di scharjenelle) Victoza 2-Ze 0.6 ADMINISTER 1.8 0 10/01/20 [...] 532" ndle rizatriptan 0 08/25/20 Disconti nued (MAXALT-WINDOWS APPLICATION PACKAGER) 5 mg (E rror) disintegrating tablet spironolactone TAKE 1 TABLET 0 10/19/20 D iscontinued (ALDACTONE) 25 mg BY MOUTH EVERY (Stop Taking at tablet DAY Discharge) sucralfate (CARAFATE) TAKE 1 TABLET 0 08/20/2012/02 4/ Discontinued 1 g tablet BY MOUTH TWICE [...] 01/21/20 Disco ntinued suspension swallow 10 mL 023 (Stop Taking at (AMB-CMPD)Indications: 2 (two) times [...] Discontinued n (Percocet) 7.5-325 by mouth every (Stop Taking at mg [...] d) AND IN THE EVENING WITH MEALS semaglutide (Ozempic) Inject 1 mg 3 mL 0 05/26/20 Discontinued 1 mg/dose (4 mg/3 mL) under the skin 023 (Dose pnijIndications: Type every 7 days. adjustment) 2 diabetes mellitus with hyperglycemia Active Problems Problem Noted Date jail use of anticoagulant 03/31/2023 Acute thrombosis of [...] 10 percent indicating poor 01/1205/25/2023 diabetic control jail current use of systemic steroid 12/10/2022 05/25/2023 Encounters Date Type Specialty Care Team Description 06/22/2023 Procedure visit Endocrinology Sara Andrade 2 diab estefaniaes No Otto MD mellitus with hyperglycemia (Primary Dx) 06/22/2023 Orders Only Endocrinology Sara Andrade 2 diabete s No Otto MD mellitus with hyperglycemia (Primary Dx) 06/21/2023 Telephone Endocrinology Angela Lopes APRN Needle, Pamela A, RN 06/17/2023 Treatment Speech Pathology Monico Poole Dysarthria (Primary Dx); MD Ashely Oropharyngeal dysphagia Sheba Olivarez [facility] ARCHITECT CONSULTANT 06/17/2023 Documentation Speech Pathology Sheba Olivarez [facility] ARCHITECT CONSULTANT 06/17/2023 Documentation Speech Pathology Sheba Olivarez, [facility] ARCHITECT CONSULTANT 06/17/2023 Travel 06/16/2023 Telephone Head and Neck Antonella, Surgery Red Costa APRN 06/08/2023 Documentation Endocrinology Jenna Alvarado RN 06/06/2023 Refill Oncology Hdez, Adenoid cystic Lorena carcinoma of Kayla, BRIDGE CONSTRUCTION INSPECTOR nasopharynx, NO S 05/26/2023 Telemedicine Endocrinology Jose Type 2 diabete s mellitus with hyperglycemia (Primary Dx); BORIS Calixto Abnormal corti kaye 05/26/2023 Telephone Endocrinology Marily Garcia APRN 05/26/2023 Telephone Endocrinology Jenna Alvarado RN 05/25/2023 Orders Only Endocrinology Sara Garcia 2 diabagustin s mellitus with hyperglycemia (Primary Dx); BORIS [...] nasopharynx, NO S 04/22/2023 Follow-[place] Radiation Oncology [place] Gini carcinoma of nasopharynx, NO S 04/22/2023 Ancillary Procedure Radiology [place] MD carcinoma of nasopharynx, NO S 04/22/2023 Travel 04/09/2023 Refill Pain Medicine Martha Chronic pain JCARLOS Tracey 04/08/2023 Refill Pain Medicine Evan Chronic pain Miguel Fernandez MD 03/31/2023 Office Visit Hematology Rosana Harkins MD termination clerk use of anticoagulant (Primary Dx); Adenoid cystic carcinoma of nasopharynx, NOS; Deep venous thr ombosis <Unspecified side>; Acute thrombosi s of right axillary vein; Bilateral acute thrombosis of basilic veins; Thrombosis of l eft cephalic vein 03/31/2023 Travel 03/26/2023 Telephone Pain Medicine Viry Gaitan RN 03/23/2023 Telephone Radiation Oncology Lindy Montenegro PA 03/23/2023 Orders Only Radiation Oncology Lindy Montenegro PA 03/19/2023 Telemedicine Endocrinology Moses Angela, Type 2 diabet es BRIDGE CONSTRUCTION INSPECTOR mellitus withou t complication (P rimary Dx) 03/18/2023 Telephone Oncology Vaibhav Rosario MD 03/16/2023 Orders Only Oncology Duy Hdez carcinoma of Nixa, BRIDGE CONSTRUCTION INSPECTOR nasopharynx, 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) 03/12/2023 Nutrition Nutrition Kenya Agarwal MD Martin, Cathy A, ADAM 03/11/2023 Infusion Infusion Services Duy Hdez carcinoma of Kayla, BRIDGE CONSTRUCTION INSPECTOR nasopharynx, 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) 03/11/2023 Follow-Up Oncology Lemuel Adenoid cystic Lorena carcinoma of Kayla, BRIDGE CONSTRUCTION INSPECTOR nasopharynx, 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) 03/11/2023 Travel 03/09/2023 Telephone Oncology Lorena Hdez, BRIDGE CONSTRUCTION INSPECTOR 03/04/2023 Nutrition Nutrition Kenya Agarwal MD Martin, Cathy A, ADAM 03/04/2023 Orders Only Oncology Lorena Hdez, BRIDGE CONSTRUCTION INSPECTOR 03/04/2023 Telephone Thoracic Medicine Tita Kwon RN 03/04/2023 Orders Only Pain Medicine Evan, Cancer associa kaylie Fernandez MD pain (Primary Dx) 03/03/2023 Follow-Up Thoracic Medicine Melia Rosarioid cy stic carcinoma of nasopharynx, NOS; MD Vaibhav Deep venous thr ombosis <Unspecified side> 03/03/2023 Refill Pain Medicine Tyrell, Chronic pain Anumol, BRIDGE CONSTRUCTION INSPECTOR 03/03/2023 Travel 03/02/2023 Refill Pain Medicine Tyrell, Chronic pain Anumol, BRIDGE CONSTRUCTION INSPECTOR 02/26/2023 Telemedicine Pain Medicine Evan, Chronic pain ( Primary Miguel Fernandez MD Dx) 02/25/2023 Nutrition Nutrition Kenya Agarwal MD Martin, Cathy A, ADAM 02/19/2023 Telephone Radiation Oncology Anthony Lancaster, JCARLOS 02/18/2023 Nutrition Nutrition Kenya Agarwal MD Martin, Cathy A, ADAM 02/12/2023 Clinical Support Radiation Oncology [place] 02/12/2023 Hospital Encounter Radiation Oncology Kenya Agarwal MD 02/12/2023 Documentation Radiation Oncology [place] MD 02/12/2023 Orders Only Radiation Oncology Winter Luu Adenocarc inoma of nasopharynx (Primary Dx); MD Gini Adenoid cystic carcinoma of nasopharynx, NOS 02/12/2023 Orders Only Pain Medicine Bruce, Neoplasm relat ed pain (acute) (chronic) (Primary Dx); MD Elvis Chronic pain 02/10/2023 Orders Only Speech Pathology Charla Solis Oropharyngjessica Solano [facility] ARCHITECT CONSULTANT dysphagia (Prim cristina Dx) 02/08/2023 Hospital Encounter Radiation Oncology Kenya Agarwal MD 02/06/2023 Travel 02/05/2023 Hospital Encounter GIM/Phase 1 Deneen Guevara, Intractab le nausea and vomiting (Primary Dx); - Type 2 diabetes mellitus with hyperglyce moncho; 02/16/2023 Rachid, Swallowing pain ful; MD Felisa Dyspnea; Brooks, [...] Dx) 02/03/2023 Orders Only Oncology Lorena Hdez, BORIS 02/03/2023 Travel 02/02/2023 Travel 01/31/2023 Refill Internal Medicine Rohan Type 2 juliet ryan Peñaloza, mellitus with BRIDGE CONSTRUCTION INSPECTOR hyperglycemia (Primary Dx) 01/28/2023 Telephone Radiation Oncology Felisa Castillo RN 01/28/2023 Orders Only Oncology Lorena Hdez, BRIDGE CONSTRUCTION INSPECTOR 01/26/2023 Hospital Encounter Uro/Ortho/GI Wattana, Chronic p [...] Castillo, JCARLOS 01/26/2023 Telephone Radiation Oncology Felisa Castillo, JCARLOS 01/25/2023 Nutrition Nutrition Kenya Agarwal MD Martin, Cathy A, RD 01/25/2023 Hospital Encounter Radiation Oncology Kenya gAarwal MD 01/25/2023 Telephone Radiation Oncology Felisa Castillo, JCARLOS 01/22/2023 Nutrition Nutrition Kenya Agarwal MD Martin, Cathy A, RD 01/22/2023 Travel 01/21/2023 Infusion Infusion Services Lemuel, Adenoid cy stic Lorena carcinoma of Kayla, BRIDGE CONSTRUCTION INSPECTOR nasopharynx, 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) 01/21/2023 Follow-Up Thoracic Medicine Kenny Power Adenoid cy rain Esposito MD carcinoma of nasopharynx, 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) 01/21/2023 Travel 01/20/2023 Consult Pain Medicine Williams, termination clerk cur rent use of opiate analgesic (Primary Dx); Rogerio, Adenocarcinoma of nasopharynx; 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; Neoplasm relate d pain (acute) (chronic) 01/20/2023 Documentation Pain Medicine Randall Ferrer 01/20/2023 Travel 01/19/2023 Clinical Support Radiation Oncology Winter Luu MD 01/19/2023 Travel 01/14/2023 Orders Only Speech Pathology Sherif, Dysphagia, [place] oropharyngeal p enrike Cervantes, (Primary Dx) [employer]UTIONS ARCHITECT CONSULTANT 01/12/2023 Refill Internal Medicine Orlin, Hypertensi on [...] of glucocorticoids and synthetic analogues, subsequent encounter; termination clerk curre nt use of systemic steroid; Hyperlipidemia, [...] ADAM 01/08/2023 Travel 01/07/2023 Infusion Infusion Services Lemuel, Adenoid cy stic Lorena carcinoma of Kayla, BRIDGE CONSTRUCTION INSPECTOR nasopharynx, 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) 01/07/2023 Follow-Up Oncology Lemuel, Adenoid cystic Lorena carcinoma of Kayla, BRIDGE CONSTRUCTION INSPECTOR nasopharynx, 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) 01/07/2023 Travel 01/06/2023 Infusion Infusion Services Hdez, Adenoid cy stic Lorena carcinoma of Kayla, BRIDGE CONSTRUCTION INSPECTOR nasopharynx, 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) 01/06/2023 Travel 01/05/2023 Travel 01/04/2023 Clinical Support Radiation Oncology Winter Luu MD nasopharynx (Pr imary Dx) 01/04/2023 Infusion Infusion Services Hdez, Adenoid cy stic Lorena carcinoma of Kayla, BRIDGE CONSTRUCTION INSPECTOR nasopharynx, 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) 01/04/2023 Travel 01/01/2023 Infusion Infusion Services Lemuel, Adenoid cy stic Lorena carcinoma of Kayla, BRIDGE CONSTRUCTION INSPECTOR nasopharynx, 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) 01/01/2023 Follow-Up Thoracic Medicine Coxkourtney PowerDuy cy stic carcinoma of nasopharynx, NOS (Primary Dx); MD Vaibhav Neoplasm relate d pain (acute) (chronic) 01/01/2023 Refill Pain Medicine Geo, Neoplasm relat ed pain Brittni Benjamin RN (acute) (chroni c) 01/01/2023 Travel 12/31/2022 Telephone Thoracic Medicine Doyle, Pain med r equest and Tita Mayorga, nausea - missed RN treatment 12/31/2022 Orders Only Oncology Lemuel, Adenoid cystic Lorena carcinoma of Kayla, BRIDGE CONSTRUCTION INSPECTOR nasopharynx, 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) 12/30/2022 Hospital [...] Adenoid cy stic Lorena carcinoma of Kayla, BRIDGE CONSTRUCTION INSPECTOR nasopharynx, 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) 12/24/2022 Follow-Up Thoracic Medicine Kenny Power Adenoid cy [...] Medicine Vaibhav Rosario MD 12/23/2022 Clinical Support Erinid Winter Luu Suspected C OVID-19 (Primary Dx); MD Gini Adenocarcinoma of nasopharynx Dony Calhoun MA 12/23/2022 Hospital Encounter Dental Oncology Hofstede, Adenoi d cystic Otilia, DDS carcinoma of nasopharynx, NO S 12/23/2022 Documentation Radiation Oncology Winter Luu MD 12/23/2022 Telephone Thoracic Medicine Kenny Power, Results (T est note ) MD Vaibhav 12/23/2022 Telephone Radiation Oncology Doyle, Results ( Juan Daniel Mayorga, note-per Daniela RN request) 12/23/2022 Travel 12/23/2022 Orders Only Oncology Hdez, Adenoid cystic Lorena carcinoma of Kayla, BRIDGE CONSTRUCTION INSPECTOR nasopharynx, 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) 12/18/2022 Orders Only Radiation Oncology OrlandoLindy redd PA 12/18/2022 Orders Only Radiation Oncology Orlando, Adenocarc inoma of Lindy nasopharynx BALJINDER Sotelo 12/17/2022 Clinical Support Radiation Oncology Kenya Agarwal MD Lawrence, Holly D, RN 12/17/2022 Documentation Radiation Oncology Winter Luu MD 12/17/2022 Documentation Radiation Oncology Winter Luu MD 12/17/2022 Documentation Radiation Oncology Winter Luu MD 12/17/2022 Orders Only Oncology Hdez, Adenoid cystic Lorena carcinoma of Kayla, BRIDGE CONSTRUCTION INSPECTOR nasopharynx, 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) 12/17/2022 Travel [...] Rogerio Kramer MD 12/15/2022 [facility] ([facility] t[facility] Maya, OD nerve palsy, le ft eye (Primary Dx) 12/15/2022 Ophth Exam [facility] Maya, OD 12/14/2022 Orders Only Dental Oncology Martínez, Encounter rani Hdz MD observation for other suspected disea se ruled out (Prim cirstina Dx) 12/11/2022 Telephone Dental Oncology Triston Gomez [...] Lemuel, Adenoid cystic Lorena carcinoma of Kayla, BRIDGE CONSTRUCTION INSPECTOR nasopharynx, 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) 12/05/2022 Telephone Radiation Oncology Winter Luu MD 12/05/2022 Orders Only Radiation Oncology Winter Luu Adenocarc inoma of MD Gini nasopharynx (Pr imary Dx) 12/04/2022 Hospital Encounter Matthew Benitez MD Lorena Hdez, BRIDGE CONSTRUCTION INSPECTOR 12/04/2022 Telephone Head and Neck Antonella, Surgery Red Costa, BRIDGE CONSTRUCTION INSPECTOR 12/04/2022 Multidisciplinary Visit Head and Neck Antonella, Surgery Red Costa, BRIDGE CONSTRUCTION INSPECTOR 12/04/2022 Telephone Radiation Oncology Maria Luz Cochran RN 12/02/2022 Orders Only Radiation Oncology Lan, Adenocarc inoma of Lindy nasopharynx (Pr imary BALJINDER Sotelo Dx) 12/02/2022 Orders Only Radiation Oncology Winter Luu Adenocarc inoma of MD Gini nasopharynx (Pr imary Dx) 11/30/2022 Ancillary Procedure Radiology Lemuel, Adenocar cinoma of Lorena nasopharynx Kayla, BRIDGE CONSTRUCTION INSPECTOR 11/30/2022 Travel 11/27/2022 Ancillary Procedure Radiology Lan, Adenocar cinoma of nasopharynx; 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 BALJINDER Sotelo 11/27/2022 Travel 11/26/2022 Consult Thoracic Medicine Cox Jannet, Adenocarci noma of MD Vaibhav nasopharynx 11/26/2022 Consult Radiation Oncology Winter Luu Adenocarayan inoma of nasopharynx; 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 11/26/2022 Travel 11/24/2022 Lab Requisition David Nunez MD Xu, Ya, MD 11/23/2022 Telephone Oncology Oef Bardales RN 11/22/2022 Orders Only Dental Oncology Nando Aguayo MD observation for other suspected condi tion ruled out (Prim cristina Dx) 11/20/2022 Telephone Surgical Oncology Elana Child, JCARLOS 11/17/2022 Office Visit Head and Neck Kenya Agarwal of Surgery MD Sarah nasopharynx 11/17/2022 NPR Patient Access Kenya Agarwal MD 11/17/2022 Travel 11/16/2022 Orders Only Head and Neck Antonella, Adenocarcinoma of Surgery Red Costa, nasopharynx (Pr imary BRIDGE CONSTRUCTION INSPECTOR Dx) 11/12/2022 Orders Only Head and Neck Job Honeycutt PA 11/12/2022 Orders Only Head and Neck McAnulty, Adenocarcinoma of nasopharynx (Primary Dx); Surgery Red M, 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 BRIDGE CONSTRUCTION INSPECTOR after 07/01/2022 Surgical History Surgery Date Site/Laterality Comments APPENDECTOMY [id number] COLONOSCOPY [id number] CHOLECYSTECTOMY [id number] KNEE ARTHROPLASTY Right SHOULDER SURGERY 050@2011 Left UPPER GASTROINTESTINAL ENDOSCOPY [id number] SECTION, CLASSIC 11/01/1984 - 10/31/1985 PARTIAL HYSTERECTOMY 03/01/2012 - 03/31/2012 MYRINGOTOMY WITH ASPIRATION AND 11/01/2019 - 10/31/2020 INSERTION PE TUBES SLEEVE GASTROPLASTY N/A Medical History Medical History Date Comments Hypertension [id number] Hyperlipidemia [id number] Allergic rhinitis [id number] Fatty liver [id number] Gastric reflux 01301384 Gastric ulcer [id number] Crohn's disease [id number] Gout [id number] Type 2 diabetes mellitus with [id number] hyperglycemia Anxiety [id number] Chronic obstructive pulmonary disease On home supplemental [...] at Date Recorded 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 Start Date Occupation Industry Not on file Not on file Not on file Obstetrics History Last Filed Vital Signs Vital Sign Reading Time Taken Comments Blood Pressure 113/75 06/17/2023 1:13 PM CDT Pulse 71 06/17/2023 1:13 PM CDT Temperature 36.9 C (98.4 F) 04/22/2023 3:38 PM CDT Respiratory Rate 16 06/17/2023 1:13 PM CDT Oxygen Saturation 95% 06/17/2023 1:13 PM CDT Inhaled Oxygen Concentration - - Weight 145.3 kg (320 lb 5.3 oz) 04/22/2023 3:39 PM CDT Height 155 cm (5' 1.02") 04/22/2023 12:37 PM CDT Body Mass Index 60.48 04/22/2023 12:37 PM CDT Plan of Treatment Date Type Specialty Care Team Description 07/06/2023 Lab Lab Lindy Montenegro PA [address], [place] [address] (Wo rk) 07/06/2023 Ancillary Procedure Radiology Lindy Montenegro PA [address], [place] [address] (Wo rk) 07/06/2023 Follow-Up Head and Neck Surgery Sheri Agarwal MD [address], [place] [address] (Wo rk) 07/22/2023 Appointment Lab Angela Lopes AP RN [address], [place] [address] (Wo rk) 07/22/2023 Appointment Ophthalmology Suzanne Mcgrath MD [address] [place], [place] [address] (Wo rk) 07/28/2023 Telemedicine Endocrinology No Andrade MD [address], [place] [address] (Wo rk) Health Maintenance Due Date Last Done Comments COVID-19 Vaccination (4 - Moderna 09/05/2021 07/11/2021, , risk series) 12/03/2020 Medical Devices Implanted Type Area Piercing Machine Operator Device Shelf Model / Identifier Expiration Serial / Date Lot Gastric Sleeve Sleeve Midline: Stomach Procedures Procedure Name Priority Date/Time Associated Comments Diagnosis ADRENOCORTICOTROPIC Routine 06/17/2023 Abnormal cortisol Res ults for HORMONE 12:29 PM CDT this procedure are in the results section. CORTISOL Routine 06/17/2023 Abnormal cortisol Results fo r 12:29 PM CDT this procedure are in the results section. MRI ORBITS W WO CONTRAST Routine 04/22/2023 [...] the results section. CONTROLLED SUBSTANCE Routine 01/20/2023 termination clerk current Re sults for MONITORING PANEL, URINE [...] Adenoid cystic Result s for 8:28 AM DIRECTOR OF REVENUE carcinoma of this procedure nasopharynx, NOS are in the results section. Results CBC Routine 01/07/2023 Adenoid cystic Results for 8:28 AM DIRECTOR OF REVENUE carcinoma of this procedure nasopharynx, NOS are in the results section. FRACTIONATED BILIRUBIN Routine 01/07/2023 Adenoid cystic Res ults for 8:28 AM DIRECTOR OF REVENUE carcinoma of this procedure nasopharynx, NOS are in the results section. TOTAL PROTEIN Routine 01/07/2023 Adenoid cystic Results for 8:28 AM DIRECTOR OF REVENUE carcinoma of this procedure nasopharynx, NOS are in the results section. ASPARTATE AMINOTRANSFERASE Routine 01/07/2023 Adenoid cystic Results for 8:28 AM DIRECTOR OF REVENUE carcinoma of this procedure nasopharynx, NOS are in the results section. ALANINE AMINOTRANSFERASE Routine 01/07/2023 Adenoid cystic R esults for 8:28 AM DIRECTOR OF REVENUE carcinoma of this procedure nasopharynx, NOS are in the results section. ALKALINE PHOSPHATASE Routine 01/07/2023 Adenoid cystic Resul ts for 8:28 AM DIRECTOR OF REVENUE carcinoma of this procedure nasopharynx, NOS are in the results section. ALBUMIN LEVEL Routine 01/07/2023 Adenoid cystic Results for 8:28 AM DIRECTOR OF REVENUE carcinoma of this procedure nasopharynx, NOS are in the results section. CALCIUM LEVEL TOTAL Routine 01/07/2023 Adenoid cystic Result s for 8:28 AM DIRECTOR OF REVENUE carcinoma of this procedure nasopharynx, NOS are in the results section. .GLOMERULAR FILTRATION Routine 01/07/2023 Adenoid cystic Res ults for RATE 8:28 AM DIRECTOR OF REVENUE carcinoma of this procedure nasopharynx, NOS are in the results section. SERUM CREATININE Routine 01/07/2023 Adenoid cystic Results f or 8:28 AM DIRECTOR OF REVENUE carcinoma of this procedure nasopharynx, NOS are in the results section. ELECTROLYTE PANEL Routine 01/07/2023 Adenoid cystic Results for 8:28 AM DIRECTOR OF REVENUE carcinoma of this procedure nasopharynx, NOS are in the results section. BLOOD UREA NITROGEN Routine 01/07/2023 Adenoid cystic Result s for 8:28 AM DIRECTOR OF REVENUE carcinoma of this procedure nasopharynx, NOS are in the results section. GLUCOSE LEVEL Routine 01/07/2023 Adenoid cystic Results for 8:28 AM DIRECTOR OF REVENUE carcinoma of this procedure nasopharynx, NOS are in the results section. PHOSPHORUS LEVEL Routine 01/07/2023 Adenoid cystic Results f or 8:28 AM DIRECTOR OF REVENUE carcinoma of this procedure nasopharynx, NOS are in the results section. MAGNESIUM LEVEL Routine 01/07/2023 Adenoid cystic Results fo r 8:28 AM DIRECTOR OF REVENUE carcinoma of this procedure nasopharynx, NOS are in the results section. COMPLETE BLOOD COUNT W/ Routine 01/07/2023 Adenoid cystic DIFFERENTIAL 8:28 AM DIRECTOR OF REVENUE carcinoma of nasopharynx, NOS COMPREHENSIVE METABOLIC Routine 01/07/2023 Adenoid cystic PANEL 8:28 AM DIRECTOR OF REVENUE carcinoma of nasopharynx, NOS MANUAL DIFFERENTIAL Routine 01/01/2023 Adenoid cystic Result s for 8:26 AM DIRECTOR OF REVENUE carcinoma of this procedure nasopharynx, NOS are in the results section. Results CBC Routine 01/01/2023 Adenoid cystic Results for 8:26 AM DIRECTOR OF REVENUE carcinoma of this procedure nasopharynx, NOS are in the results section. FRACTIONATED BILIRUBIN Routine 01/01/2023 Adenoid cystic Res ults for 8:26 AM DIRECTOR OF REVENUE carcinoma of this procedure nasopharynx, NOS are in the results section. TOTAL PROTEIN Routine 01/01/2023 Adenoid cystic Results for 8:26 AM DIRECTOR OF REVENUE carcinoma of this procedure nasopharynx, NOS are in the results section. ASPARTATE AMINOTRANSFERASE Routine 01/01/2023 Adenoid cystic Results for 8:26 AM DIRECTOR OF REVENUE carcinoma of this procedure nasopharynx, NOS are in the results section. ALANINE AMINOTRANSFERASE Routine 01/01/2023 Adenoid cystic R esults for 8:26 AM DIRECTOR OF REVENUE carcinoma of this procedure nasopharynx, NOS are in the results section. ALKALINE PHOSPHATASE Routine 01/01/2023 Adenoid cystic Resul ts for 8:26 AM DIRECTOR OF REVENUE carcinoma of this procedure nasopharynx, NOS are in the results section. ALBUMIN LEVEL Routine 01/01/2023 Adenoid cystic Results for 8:26 AM DIRECTOR OF REVENUE carcinoma of this procedure nasopharynx, NOS are in the results section. CALCIUM LEVEL TOTAL Routine 01/01/2023 Adenoid cystic Result s for 8:26 AM DIRECTOR OF REVENUE carcinoma of this procedure nasopharynx, NOS are in the results section. .GLOMERULAR FILTRATION Routine 01/01/2023 Adenoid cystic Res ults for RATE 8:26 AM DIRECTOR OF REVENUE carcinoma of this procedure nasopharynx, NOS are in the results section. SERUM CREATININE Routine 01/01/2023 Adenoid cystic Results f or 8:26 AM DIRECTOR OF REVENUE carcinoma of this procedure nasopharynx, NOS are in the results section. ELECTROLYTE PANEL Routine 01/01/2023 Adenoid cystic Results for 8:26 AM DIRECTOR OF REVENUE carcinoma of this procedure nasopharynx, NOS are in the results section. BLOOD UREA NITROGEN Routine 01/01/2023 Adenoid cystic Result s for 8:26 AM DIRECTOR OF REVENUE carcinoma of this procedure nasopharynx, NOS are in the results section. GLUCOSE LEVEL Routine 01/01/2023 Adenoid cystic Results for 8:26 AM DIRECTOR OF REVENUE carcinoma of this procedure nasopharynx, NOS are in the results section. PHOSPHORUS LEVEL Routine 01/01/2023 Adenoid cystic Results f or 8:26 AM DIRECTOR OF REVENUE carcinoma of this procedure nasopharynx, NOS are in the results section. MAGNESIUM LEVEL Routine 01/01/2023 Adenoid cystic Results fo r 8:26 AM DIRECTOR OF REVENUE carcinoma of this procedure nasopharynx, NOS are in the results section. COMPLETE BLOOD COUNT W/ Routine 01/01/2023 Adenoid cystic DIFFERENTIAL 8:26 AM DIRECTOR OF REVENUE carcinoma of nasopharynx, NOS COMPREHENSIVE METABOLIC Routine 01/01/2023 Adenoid cystic PANEL 8:26 AM DIRECTOR OF REVENUE carcinoma of nasopharynx, NOS [place] VISUAL FIELD, Routine 12/29/2022 Sixth (abducent) R esults for INTERMEDIATE - OU - BOTH 10:51 AM DIRECTOR OF REVENUE nerve palsy, lef t this procedure EYES eye are in the results section. OCT, OPTIC NERVE - OU - Routine 12/29/2022 Sixth (abducent) Results for BOTH EYES 10:43 AM DIRECTOR OF REVENUE nerve palsy, left this proce dure eye are in the results section. OCT, RETINA - OU - BOTH Routine 12/29/2022 Sixth (abducent) Results for EYES 10:43 AM DIRECTOR OF REVENUE nerve palsy, left this proce dure eye are in the results section. MANUAL DIFFERENTIAL Routine 12/24/2022 Adenoid cystic Result s for 9:16 AM DIRECTOR OF REVENUE carcinoma of this procedure nasopharynx, NOS are in the results section. Results CBC Routine 12/24/2022 Adenoid cystic Results for 9:16 AM DIRECTOR OF REVENUE carcinoma of this procedure nasopharynx, NOS are in the results section. FRACTIONATED BILIRUBIN Routine 12/24/2022 Adenoid cystic Res ults for 9:16 AM [employer] carcinoma of this procedure nasopharynx, NOS are in the results section. TOTAL PROTEIN Routine 12/24/2022 Adenoid cystic Results for 9:16 AM [employer] carcinoma of this procedure nasopharynx, NOS are in the results section. 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 CALCIUM LEVEL TOTAL Routine 12/24/2022 Adenoid cystic Result s for 9:16 AM [employer] carcinoma of this procedure nasopharynx, NOS are in the results section. 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 BLOOD UREA NITROGEN Routine 12/24/2022 Adenoid cystic Result s for 9:16 AM [employer] carcinoma of this procedure nasopharynx, NOS are in the results section. 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 COMPLETE BLOOD COUNT W/ Routine 12/24/2022 Adenoid cystic DIFFERENTIAL 9:16 AM [employer] carcinoma of nasopharynx, NOS COMPREHENSIVE METABOLIC Routine 12/24/2022 Adenoid cystic PANEL 9:16 AM [employer] carcinoma of nasopharynx, NOS COVID-19 (SARS-COV-2) PCR Routine 12/23/2022 Suspected COVID -19 Results for - ASYMPTOMATIC - MC 12:01 PM [employer] this pro cedure are in the results section. POC GLUCOSE SCREEN Routine 12/15/2022 Results f or 6:07 PM [employer] this procedure are in the results section. POC GLUCOSE SCREEN Routine 12/15/2022 Results f or 12:52 PM [employer] this procedure are in the results section. OCT, OPTIC NERVE - OU - Routine 12/15/2022 Diplopia Resu lts for BOTH EYES 10:37 AM [employer] this procedure are in the results section. OCT, RETINA - OU - BOTH Routine 12/15/2022 Diplopia Resu lts for EYES 10:37 AM [employer] this procedure are in the results section. FUNDUS PHOTOS - OU - BOTH Routine 12/15/2022 Diplopia Re sults for EYES 10:37 AM [employer] this procedure are in the results section. 3D DENTAL IMAGING (ICAT) Routine 12/15/2022 Encounter for Re sults for 8:42 AM [employer] observation for this procedu re other suspected are in the disease ruled out results section. POC GLUCOSE SCREEN Routine 12/15/2022 Results f or 7:19 AM [employer] this procedure are in the results section. POC GLUCOSE SCREEN Routine 12/15/2022 Results f or 6:12 AM [employer] this procedure are in the results section. MANUAL DIFFERENTIAL AM 12/15/2022 Results for 3:44 AM [employer] this procedure are in the results section. Results CBC AM 12/15/2022 Results for 3:44 AM [employer] this procedure are in the results section. CALCIUM LEVEL TOTAL AM 12/15/2022 Results for 3:44 AM [employer] this procedure are in the results section. .GLOMERULAR FILTRATION AM 12/15/2022 Resul ts for RATE 3:44 AM [employer] this procedure are in the results section. SERUM CREATININE AM 12/15/2022 Results for 3:44 AM [employer] this procedure are in the results section. ELECTROLYTE PANEL AM 12/15/2022 Results fo r 3:44 AM [employer] this procedure are in the results section. BLOOD UREA NITROGEN AM 12/15/2022 Results for 3:44 AM [employer] this procedure are in the results section. GLUCOSE LEVEL AM 12/15/2022 Results for 3:44 AM [employer] this procedure are in the results section. COMPLETE BLOOD COUNT W/ AM 12/15/2022 DIFFERENTIAL 3:44 AM [employer] PHOSPHORUS LEVEL AM 12/15/2022 Results for 3:44 AM [employer] this procedure are in the results section. MAGNESIUM LEVEL AM 12/15/2022 Results for 3:44 AM [employer] this procedure are in the results section. BASIC METABOLIC PANEL, AM 12/15/2022 CALCIUM TOTAL 3:44 AM [employer] POC GLUCOSE SCREEN Routine 12/15/2022 Results f or 2:28 AM [employer] this procedure are in the results section. POC GLUCOSE SCREEN Routine 12/14/2022 Results f or 10:04 PM [employer] this procedure are in the results section. POC GLUCOSE SCREEN Routine 12/14/2022 Results f or 5:26 PM [employer] this procedure are in the results section. POC GLUCOSE SCREEN Routine 12/14/2022 Results f or 4:14 PM [employer] this procedure are in the results section. FL MODIFIED BARIUM SWALLOW Routine 12/14/2022 R esults for W SPEECH 2:37 PM [employer] this procedure are in the results section. POC GLUCOSE SCREEN Routine 12/14/2022 Results f or 12:08 PM [employer] this procedure are in the results section. GENERAL LABORATORY ADD ON Routine 12/14/2022 Re sults for TEST 8:03 AM [employer] this procedure are in the results section. POC GLUCOSE SCREEN Routine 12/14/2022 Results f or 7:25 AM [employer] this procedure are in the results section. POC GLUCOSE SCREEN Routine 12/14/2022 Results f or 5:55 AM [employer] this procedure are in the results section. FRACTIONATED BILIRUBIN AM 12/14/2022 Resul ts for 4:46 AM [employer] this procedure are in the results section. TOTAL PROTEIN AM 12/14/2022 Results for 4:46 AM [employer] this procedure are in the results section. ASPARTATE AMINOTRANSFERASE AM 12/14/2022 R esults for 4:46 AM [employer] this procedure are in the results section. ALANINE AMINOTRANSFERASE AM 12/14/2022 Res ults for 4:46 AM [employer] this procedure are in the results section. ALKALINE PHOSPHATASE AM 12/14/2022 Results for 4:46 AM [employer] this procedure are in the results section. ALBUMIN LEVEL AM 12/14/2022 Results for 4:46 AM [employer] this procedure are in the results section. MANUAL DIFFERENTIAL AM 12/14/2022 Results for 4:46 AM [employer] this procedure are in the results section. Results CBC AM 12/14/2022 Results for 4:46 AM [employer] this procedure are in the results section. CALCIUM LEVEL TOTAL AM 12/14/2022 Results for 4:46 AM [employer] this procedure are in the results section. .GLOMERULAR FILTRATION AM 12/14/2022 Resul ts for RATE 4:46 AM [employer] this procedure are in the results section. SERUM CREATININE AM 12/14/2022 Results for 4:46 AM [employer] this procedure are in the results section. ELECTROLYTE PANEL AM 12/14/2022 Results fo r 4:46 AM [employer] this procedure are in the results section. BLOOD UREA NITROGEN AM 12/14/2022 Results for 4:46 AM [employer] this procedure are in the results section. GLUCOSE LEVEL AM 12/14/2022 Results for 4:46 AM [employer] this procedure are in the results section. COMPLETE BLOOD COUNT W/ AM 12/14/2022 DIFFERENTIAL 4:46 AM [employer] PHOSPHORUS LEVEL AM 12/14/2022 Results for 4:46 AM [employer] this procedure are in the results section. MAGNESIUM LEVEL AM 12/14/2022 Results for 4:46 AM [employer] this procedure are in the results section. BASIC METABOLIC PANEL, AM 12/14/2022 CALCIUM TOTAL 4:46 AM [employer] POC GLUCOSE SCREEN Routine 12/14/2022 Results f or 1:36 AM [employer] this procedure are in the results section. POC GLUCOSE SCREEN Routine 12/13/2022 Results f or 9:56 PM [employer] this procedure are in the results section. POC GLUCOSE SCREEN Routine 12/13/2022 Results f or 6:31 PM [employer] this procedure are in the results section. POC GLUCOSE SCREEN Routine 12/13/2022 Results f or 1:24 PM [employer] this procedure are in the results section. POC GLUCOSE SCREEN Routine 12/13/2022 Results f or 8:02 AM [employer] this procedure are in the results section. POC GLUCOSE SCREEN Routine 12/13/2022 Results f or 5:58 AM [employer] this procedure are in the results section. POC GLUCOSE SCREEN Routine 12/13/2022 Results f or 3:24 AM [employer] this procedure are in the results section. MANUAL DIFFERENTIAL AM 12/13/2022 Results for 3:12 AM [employer] this procedure are in the results section. Results CBC AM 12/13/2022 Results for 3:12 AM [employer] this procedure are in the results section. CALCIUM LEVEL TOTAL AM 12/13/2022 Results for 3:12 AM [employer] this procedure are in the results section. .GLOMERULAR FILTRATION AM 12/13/2022 Resul ts for RATE 3:12 AM [employer] this procedure are in the results section. SERUM CREATININE AM 12/13/2022 Results for 3:12 AM [employer] this procedure are in the results section. ELECTROLYTE PANEL AM 12/13/2022 Results fo r 3:12 AM [employer] this procedure are in the results section. BLOOD UREA NITROGEN AM 12/13/2022 Results for 3:12 AM [employer] this procedure are in the results section. GLUCOSE LEVEL AM 12/13/2022 Results for 3:12 AM [employer] this procedure are in the results section. COMPLETE BLOOD COUNT W/ AM 12/13/2022 DIFFERENTIAL 3:12 AM [employer] PHOSPHORUS LEVEL AM 12/13/2022 Results for 3:12 AM [employer] this procedure are in the results section. MAGNESIUM LEVEL AM 12/13/2022 Results for 3:12 AM [employer] this procedure are in the results section. BASIC METABOLIC PANEL, AM 12/13/2022 CALCIUM TOTAL 3:12 AM [employer] POC GLUCOSE SCREEN Routine 12/12/2022 Results f or 9:43 PM [employer] this procedure are in the results section. POC GLUCOSE SCREEN Routine 12/12/2022 Results f or 6:16 PM [employer] this procedure are in the results section. POC GLUCOSE SCREEN Routine 12/12/2022 Results f or 12:52 PM [employer] this procedure are in the results section. POC GLUCOSE SCREEN Routine 12/12/2022 Results f or 7:47 AM [employer] this procedure are in the results section. POC GLUCOSE SCREEN Routine 12/12/2022 Results f or 5:52 AM [employer] this procedure are in the results section. MANUAL DIFFERENTIAL AM 12/12/2022 Results for 4:30 AM [employer] this procedure are in the results section. Results CBC AM 12/12/2022 Results for 4:30 AM [employer] this procedure are in the results section. CALCIUM LEVEL TOTAL AM 12/12/2022 Results for 4:30 AM [employer] this procedure are in the results section. .GLOMERULAR FILTRATION AM 12/12/2022 Resul ts for RATE 4:30 AM [employer] this procedure are in the results section. SERUM CREATININE AM 12/12/2022 Results for 4:30 AM [employer] this procedure are in the results section. ELECTROLYTE PANEL AM 12/12/2022 Results fo r 4:30 AM [employer] this procedure are in the results section. BLOOD UREA NITROGEN AM 12/12/2022 Results for 4:30 AM [employer] this procedure are in the results section. GLUCOSE LEVEL AM 12/12/2022 Results for 4:30 AM [employer] this procedure are in the results section. COMPLETE BLOOD COUNT W/ AM 12/12/2022 DIFFERENTIAL 4:30 AM [employer] PHOSPHORUS LEVEL AM 12/12/2022 Results for 4:30 AM [employer] this procedure are in the results section. MAGNESIUM LEVEL AM 12/12/2022 Results for 4:30 AM [employer] this procedure are in the results section. BASIC METABOLIC PANEL, AM 12/12/2022 CALCIUM TOTAL 4:30 AM [employer] POC GLUCOSE SCREEN Routine 12/12/2022 Results f or 2:06 AM [employer] this procedure are in the results section. POC GLUCOSE SCREEN Routine 12/11/2022 Results f or 10:01 PM [employer] this procedure are in the results section. LACTIC ACID, VENOUS Timed Study 12/11/2022 Results for 9:50 PM [employer] this procedure are in the results section. LIPASE LEVEL STAT 12/11/2022 Results for 6:21 PM [employer] this procedure are in the results section. VENOUS BLOOD GAS STAT 12/11/2022 Results for 6:21 PM [employer] this procedure are in the results section. POC GLUCOSE SCREEN Routine 12/11/2022 Results f or 6:10 PM [employer] this procedure are in the results section. GENERAL LABORATORY ADD ON Routine 12/11/2022 Re sults for TEST 5:39 PM [employer] this procedure are in the results section. KETONE BODIES QUALITATIVE STAT 12/11/2022 Re sults for 5:19 PM [employer] this procedure are in the results section. POC GLUCOSE SCREEN Routine 12/11/2022 Results f or 4:51 PM [employer] this procedure are in the results section. LIPASE LEVEL STAT 12/11/2022 Results for 4:33 PM [employer] this procedure are in the results section. ELECTROLYTE PANEL STAT 12/11/2022 Results fo r 4:33 PM [employer] this procedure are in the results section. LACTIC ACID, VENOUS Timed Study 12/11/2022 Results for 4:33 PM [employer] this procedure are in the results section. POC GLUCOSE SCREEN Routine 12/11/2022 Results f or 3:34 PM [employer] this procedure are in the results section. POC CRITICAL Routine 12/11/2022 Results for 3:34 PM [employer] this procedure are in the results section. POC GLUCOSE SCREEN Routine 12/11/2022 Results f or 2:33 PM [employer] this procedure are in the results section. POC CRITICAL Routine 12/11/2022 Results for 2:33 PM [employer] this procedure are in the results section. POC GLUCOSE SCREEN Routine 12/11/2022 Results f or 12:35 PM [employer] this procedure are in the results section. POC GLUCOSE SCREEN Routine 12/11/2022 Results f or 8:14 AM [employer] this procedure are in the results section. LACTIC ACID, VENOUS Routine 12/11/2022 Results for 4:37 AM [employer] this procedure are in the results section. MANUAL DIFFERENTIAL AM 12/11/2022 Results for 4:30 AM [employer] this procedure are in the results section. Results CBC AM 12/11/2022 Results for 4:30 AM [employer] this procedure are in the results section. CALCIUM LEVEL TOTAL AM 12/11/2022 Results for 4:30 AM [employer] this procedure are in the results section. .GLOMERULAR FILTRATION AM 12/11/2022 Resul ts for RATE 4:30 AM [employer] this procedure are in the results section. SERUM CREATININE AM 12/11/2022 Results for 4:30 AM [employer] this procedure are in the results section. ELECTROLYTE PANEL AM 12/11/2022 Results fo r 4:30 AM [employer] this procedure are in the results section. BLOOD UREA NITROGEN AM 12/11/2022 Results for 4:30 AM [employer] this procedure are in the results section. GLUCOSE LEVEL AM 12/11/2022 Results for 4:30 AM [employer] this procedure are in the results section. COMPLETE BLOOD COUNT W/ AM 12/11/2022 DIFFERENTIAL 4:30 AM [employer] PHOSPHORUS LEVEL AM 12/11/2022 Results for 4:30 AM [employer] this procedure are in the results section. MAGNESIUM LEVEL AM 12/11/2022 Results for 4:30 AM [employer] this procedure are in the results section. BASIC METABOLIC PANEL, AM 12/11/2022 CALCIUM TOTAL 4:30 AM [employer] POC GLUCOSE SCREEN Routine 12/11/2022 Results f or 1:20 AM [employer] this procedure are in the results section. POC GLUCOSE SCREEN Routine 12/10/2022 Results f or 10:00 PM [employer] this procedure are in the results section. POC GLUCOSE SCREEN Routine 12/10/2022 Results f or 6:29 PM [employer] this procedure are in the results section. POC GLUCOSE SCREEN Routine 12/10/2022 Results f or 5:20 PM [employer] this procedure are in the results section. CT HEAD WO CONTRAST STAT 12/10/2022 Results for 3:21 PM [employer] this procedure are in the results section. POC GLUCOSE SCREEN Routine 12/10/2022 Results f or 1:45 PM [employer] this procedure are in the results section. POC GLUCOSE SCREEN Routine 12/10/2022 Results f or 11:35 AM [employer] this procedure are in the results section. POC GLUCOSE SCREEN Routine 12/10/2022 Results f or 7:30 AM [employer] this procedure are in the results section. URINALYSIS WITH Routine 12/10/2022 Results for MICROSCOPIC IF INDICATED 6:13 AM [employer] thi s procedure are in the results section. URINE CULTURE Routine 12/10/2022 Results for 6:13 AM [employer] this procedure are in the results section. MANUAL DIFFERENTIAL STAT 12/10/2022 Results for 5:13 AM [employer] this procedure are in the results section. Results CBC STAT 12/10/2022 Results for 5:13 AM [employer] this procedure are in the results section. CALCIUM LEVEL TOTAL AM 12/10/2022 Results for 5:13 AM [employer] this procedure are in the results section. .GLOMERULAR FILTRATION AM 12/10/2022 Resul ts for RATE 5:13 AM [employer] this procedure are in the results section. SERUM CREATININE AM 12/10/2022 Results for 5:13 AM [employer] this procedure are in the results section. ELECTROLYTE PANEL AM 12/10/2022 Results fo r 5:13 AM [employer] this procedure are in the results section. BLOOD UREA NITROGEN AM 12/10/2022 Results for 5:13 AM [employer] this procedure are in the results section. GLUCOSE LEVEL AM 12/10/2022 Results for 5:13 AM [employer] this procedure are in the results section. HEMOGLOBIN A1C Routine 12/10/2022 Results for 5:13 AM [employer] this procedure are in the results section. COMPLETE BLOOD COUNT W/ AM 12/10/2022 DIFFERENTIAL 5:13 AM [employer] PHOSPHORUS LEVEL AM 12/10/2022 Results for 5:13 AM [employer] this procedure are in the results section. MAGNESIUM LEVEL AM 12/10/2022 Results for 5:13 AM [employer] this procedure are in the results section. BASIC METABOLIC PANEL, AM 12/10/2022 CALCIUM TOTAL 5:13 AM [employer] POC GLUCOSE SCREEN Routine 12/10/2022 Results f or 1:38 AM [employer] this procedure are in the results section. POC GLUCOSE SCREEN Routine 12/09/2022 Results f or 11:18 PM [employer] this procedure are in the results section. POC VENOUS BLOOD GAS + Routine 12/09/2022 Resul ts for LACTATE 9:36 PM [employer] this procedure are in the results section. FRACTIONATED BILIRUBIN Routine 12/09/2022 Resul ts for 6:01 PM [employer] this procedure are in the results section. TOTAL PROTEIN Routine 12/09/2022 Results for 6:01 PM [employer] this procedure are in the results section. ASPARTATE AMINOTRANSFERASE Routine 12/09/2022 R esults for 6:01 PM [employer] this procedure are in the results section. ALANINE AMINOTRANSFERASE Routine 12/09/2022 Res ults for 6:01 PM [employer] this procedure are in the results section. ALKALINE PHOSPHATASE Routine 12/09/2022 Results for 6:01 PM [employer] this procedure are in the results section. ALBUMIN LEVEL Routine 12/09/2022 Results for 6:01 PM [employer] this procedure are in the results section. CALCIUM LEVEL TOTAL Routine 12/09/2022 Results for 6:01 PM [employer] this procedure are in the results section. .GLOMERULAR FILTRATION Routine 12/09/2022 Resul ts for RATE 6:01 PM [employer] this procedure are in the results section. SERUM CREATININE Routine 12/09/2022 Results for 6:01 PM [employer] this procedure are in the results section. ELECTROLYTE PANEL Routine 12/09/2022 Results fo r 6:01 PM [employer] this procedure are in the results section. BLOOD UREA NITROGEN Routine 12/09/2022 Results for 6:01 PM [employer] this procedure are in the results section. GLUCOSE LEVEL Routine 12/09/2022 Results for 6:01 PM [employer] this procedure are in the results section. MANUAL DIFFERENTIAL STAT 12/09/2022 Results for 6:01 PM [employer] this procedure are in the results section. Results CBC STAT 12/09/2022 Results for 6:01 PM [employer] this procedure are in the results section. LACTATE DEHYDROGENASE Routine 12/09/2022 Result s for 6:01 PM [employer] this procedure are in the results section. APTT Routine 12/09/2022 Results for 6:01 PM [employer] this procedure are in the results section. PROTHROMBIN TIME Routine 12/09/2022 Results for 6:01 PM [employer] this procedure are in the results section. PHOSPHORUS LEVEL Routine 12/09/2022 Results for 6:01 PM [employer] this procedure are in the results section. MAGNESIUM LEVEL Routine 12/09/2022 Results for 6:01 PM [employer] this procedure are in the results section. COMPREHENSIVE METABOLIC Routine 12/09/2022 PANEL 6:01 PM [employer] COMPLETE BLOOD COUNT W/ Routine 12/09/2022 DIFFERENTIAL 6:01 PM [employer]UE AMMONIA LEVEL Routine 12/09/2022 Results for 6:01 PM [employer] this procedure are in the results section. COVID-19 (SARS-COV-2)PCR Routine 12/09/2022 R esults for - ASYMPTOMATIC - LT 6:01 PM [employer] this pro cedure are in the results section. HP MOLECULAR BLOOD Routine 12/04/2022 Results f or COLLECTION 10:56 AM [employer] this procedure are in the results section. 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 PETCT CONTRAST ENHANCED Routine 11/27/2022 Adenocarcinoma of Results for INITIAL TREATMENT STRATEGY 3:57 PM [employer] nasop harynx this procedure Malignant neoplasm are in th e of overlapping results sites of section. nasopharynx POC GLUCOSE SCREEN Routine 11/27/2022 Results f or 1:06 PM [employer] this procedure are in the results section. POC GLUCOSE SCREEN Routine 11/27/2022 Results f or 12:29 PM [employer] this procedure are in the results section. FRACTIONATED BILIRUBIN Routine 11/26/2022 Adenocarcinoma of Results for 1:07 PM [employer] nasopharynx this procedure are in the results section. TOTAL PROTEIN Routine 11/26/2022 Adenocarcinoma of Results f or 1:07 PM [employer] nasopharynx this procedure are in the results section. ASPARTATE AMINOTRANSFERASE Routine 11/26/2022 Adenocarcinoma of Results for 1:07 PM [employer] nasopharynx this procedure are in the results section. ALANINE AMINOTRANSFERASE Routine 11/26/2022 Adenocarcinoma o f Results for 1:07 PM [employer] nasopharynx this procedure are in the results section. ALKALINE PHOSPHATASE Routine 11/26/2022 Adenocarcinoma of Re sults for 1:07 PM [employer] nasopharynx this procedure are in the results section. ALBUMIN LEVEL Routine 11/26/2022 Adenocarcinoma of Results f or 1:07 PM [employer] nasopharynx this procedure are in the results section. CALCIUM LEVEL TOTAL Routine 11/26/2022 Adenocarcinoma of Res ults for 1:07 PM [employer] nasopharynx this procedure are in the results section. .GLOMERULAR FILTRATION Routine 11/26/2022 Adenocarcinoma of Results for RATE 1:07 PM DIRECTOR OF REVENUE nasopharynx this procedure are in the results section. SERUM CREATININE Routine 11/26/2022 Adenocarcinoma of Result s for 1:07 PM [employer] REVENUE nasopharynx this procedure are in the results section. ELECTROLYTE PANEL Routine 11/26/2022 Adenocarcinoma of Resul ts for 1:07 PM [employer]VENUE nasopharynx this procedure are in the results section. BLOOD UREA NITROGEN Routine 11/26/2022 Adenocarcinoma of Res ults for 1:07 PM [employer] nasopharynx this procedure are in the results section. GLUCOSE LEVEL Routine 11/26/2022 Adenocarcinoma of Results f or 1:07 PM [employer]VENUE nasopharynx this procedure are in the results section. MANUAL DIFFERENTIAL Routine 11/26/2022 Adenocarcinoma of Res ults for 1:07 PM [employer] nasopharynx this procedure are in the results section. Results CBC Routine 11/26/2022 Adenocarcinoma of Results fo r 1:07 PM [employer] nasopharynx this procedure are in the results section. PROTHROMBIN TIME Routine 11/26/2022 Adenocarcinoma of Result s for 1:07 PM [employer] nasopharynx this procedure are in the results section. APTT Routine 11/26/2022 Adenocarcinoma of Results fo r 1:07 PM [employer] nasopharynx this procedure are in the results section. THYROID STIMULATING Routine 11/26/2022 Adenocarcinoma of Res ults for HORMONE 1:07 PM [employer]VENUE nasopharynx this procedure are in the results section. VITAMIN D 25 HYDROXY LEVEL Routine 11/26/2022 Adenocarcinoma of Results for 1:07 PM [employer] nasopharynx this procedure are in the results section. URIC ACID Routine 11/26/2022 Adenocarcinoma of Results fo r 1:07 PM [employer] nasopharynx this procedure are in the results section. PHOSPHORUS LEVEL Routine 11/26/2022 Adenocarcinoma of Result s for 1:07 PM [employer] nasopharynx this procedure are in the results section. MAGNESIUM LEVEL Routine 11/26/2022 Adenocarcinoma of Results for 1:07 PM [employer] nasopharynx this procedure are in the results section. LACTATE DEHYDROGENASE Routine 11/26/2022 Adenocarcinoma of R esults for 1:07 PM [employer] nasopharynx this procedure are in the results section. 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 COMPREHENSIVE METABOLIC Routine 11/26/2022 Adenocarcinoma of PANEL 1:07 PM [employer]VENUE nasopharynx COMPLETE BLOOD COUNT W/ Routine 11/26/2022 Adenocarcinoma of DIFFERENTIAL 1:07 PM [employer]VEN[employer] nasopharynx NGS BLOOD CONTROL Routine 11/26/2022 Adenocarcinoma of Re sults for 1:07 PM [employer] nasopharynx this procedure are in the results section. AP IHC HER2/ARCENIO MATERIAL Routine 11/26/2022 Adenocarcinoma o f REQUEST 12:43 PM DIRECTOR OF REVENUE nasopharynx AP IHC PD-L1 MATERIAL Routine 11/26/2022 Adenocarcinoma of REQUEST 12:43 PM [employer] OF REVENUE nasopharynx ANA CRISTINA GRIFFIN PTEN MUTATION Routine 11/26/2022 Adenocarcinoma of Res ults for MATERIAL REQUEST 12:43 PM [employer]VENUE nasopharynx this proced ure are in the results section. ANA CRISTINA GRIFFIN MTOR MATERIAL Routine 11/26/2022 Adenocarcinoma of Res ults for REQUEST 12:43 PM [employer]VENUE nasopharynx this procedure are in the results section. ANA CRISTINA GRIFFIN ERBB2 MUTATION Routine 11/26/2022 Adenocarcinoma of Re sults for ANALAYSIS MATERIAL REQUEST 12:43 PM DIRECTOR [employer]VENUE nasopharynx t his procedure are in the results section. ANA CRISTINA GRIFFIN EGFR MUTATION Routine 11/26/2022 Adenocarcinoma of Res ults for MATERIAL REQUEST 12:43 PM [employer] nasopharynx this proced ure are in the results section. ANA CRISTINA GRIFFIN ALK MUTATION Routine 11/26/2022 Adenocarcinoma of Resu lts for ANALAYSIS MATERIAL REQUEST 12:43 PM DIRECTOR [employer] REVENUE nasopharynx t his procedure are in the results section. ANA CRISTINA GRIFFIN NTRK3 FUSION Routine 11/26/2022 Adenocarcinoma of Resu lts for ANALYSIS MATERIAL REQUEST 12:43 PM DIRECT[employer]VENUE nasopharynx th is procedure are in the results section. ANA CRISTINA GRIFFIN NTRK2 FUSION Routine 11/26/2022 Adenocarcinoma of Resu lts for ANALYSIS MATERIAL REQUEST 12:43 PM [employer] nasopharynx th is procedure are in the results section. ANA CRISTINA GRIFFIN NTRK1 FUSION Routine 11/26/2022 Adenocarcinoma of Resu lts for ANALYSIS MATERIAL REQUEST 12:43 PM [employer]VENUE nasopharynx th is procedure are in the results section. MANUAL DIFFERENTIAL Routine 11/17/2022 Adenocarcinoma of Res ults for 12:11 PM [employer] nasopharynx this procedure are in the results section. Results CBC Routine 11/17/2022 Adenocarcinoma of Results fo r 12:11 PM [employer] nasopharynx this procedure are in the results section. FRACTIONATED BILIRUBIN Routine 11/17/2022 Adenocarcinoma of Results for 12:11 PM [employer] nasopharynx this procedure are in the results section. TOTAL PROTEIN Routine 11/17/2022 Adenocarcinoma of Results f or 12:11 PM [employer] nasopharynx this procedure are in the results section. ASPARTATE AMINOTRANSFERASE Routine 11/17/2022 Adenocarcinoma of Results for 12:11 PM [employer] nasopharynx this procedure are in the results section. ALANINE AMINOTRANSFERASE Routine 11/17/2022 Adenocarcinoma o f Results for 12:11 PM [employer] nasopharynx this procedure are in the results section. ALKALINE PHOSPHATASE Routine 11/17/2022 Adenocarcinoma of Re sults for 12:11 PM [employer] nasopharynx this procedure are in the results section. ALBUMIN LEVEL Routine 11/17/2022 Adenocarcinoma of Results f or 12:11 PM [employer] nasopharynx this procedure are in the results section. CALCIUM LEVEL TOTAL Routine 11/17/2022 Adenocarcinoma of Res ults for 12:11 PM [employer] nasopharynx this procedure are in the results section. .GLOMERULAR FILTRATION Routine 11/17/2022 Adenocarcinoma of Results for RATE 12:11 PM [employer] nasopharynx this procedure are in the results section. SERUM CREATININE Routine 11/17/2022 Adenocarcinoma of Result s for 12:11 PM [employer] nasopharynx this procedure are in the results section. ELECTROLYTE PANEL Routine 11/17/2022 Adenocarcinoma of Resul ts for 12:11 PM [employer] nasopharynx this procedure are in the results section. BLOOD UREA NITROGEN Routine 11/17/2022 Adenocarcinoma of Res ults for 12:11 PM [employer] nasopharynx this procedure are in the results section. GLUCOSE LEVEL Routine 11/17/2022 Adenocarcinoma of Results f or 12:11 PM [employer] nasopharynx this procedure are in the results section. PROLACTIN Routine 11/17/2022 Adenocarcinoma of Results fo r 12:11 PM [employer] nasopharynx this procedure are in the results section. INSULIN LIKE GROWTH FACTOR Routine 11/17/2022 Adenocarcinoma of Results for 1 12:11 PM [employer] nasopharynx this procedure are in the results section. TOTAL T3 Routine 11/17/2022 Adenocarcinoma of Results fo r 12:11 PM [employer] nasopharynx this procedure are in the results section. FREE THYROXINE Routine 11/17/2022 Adenocarcinoma of Results for 12:11 PM [employer] nasopharynx this procedure are in the results section. THYROID STIMULATING Routine 11/17/2022 Adenocarcinoma of Res ults for HORMONE 12:11 PM [employer] nasopharynx this procedure are in the results section. LUTEINIZING HORMONE Routine 11/17/2022 Adenocarcinoma of Res ults for 12:11 PM [employer] nasopharynx this procedure are in the results section. FOLLICLE STIMULATING Routine 11/17/2022 Adenocarcinoma of Re sults for HORMONE LEVEL 12:11 PM [employer] nasopharynx this procedure are in the results section. TESTOSTERONE LEVEL Routine 11/17/2022 Adenocarcinoma of Resu lts for 12:11 PM [employer] nasopharynx this procedure are in the results section. ESTRADIOL LEVEL Routine 11/17/2022 Adenocarcinoma of Results for 12:11 PM [employer] nasopharynx this procedure are in the results section. ADRENOCORTICOTROPIC Routine 11/17/2022 Adenocarcinoma of Res ults for HORMONE 12:11 PM [employer] nasopharynx this procedure are in the results section. CORTISOL Routine 11/17/2022 Adenocarcinoma of Results fo r 12:11 PM [employer] nasopharynx this procedure are in the results section. PROTHROMBIN TIME Routine 11/17/2022 Adenocarcinoma of Result s for 12:11 PM [employer] nasopharynx this procedure are in the results section. APTT Routine 11/17/2022 Adenocarcinoma of Results fo r 12:11 PM DIRECT[employer] nasopharynx this procedure are in the results section. COMPLETE BLOOD COUNT W/ Routine 11/17/2022 Adenocarcinoma of DIFFERENTIAL 12:11 PM [employer]VEN[employer] nasopharynx COMPREHENSIVE METABOLIC Routine 11/17/2022 Adenocarcinoma of PANEL 12:11 PM DIRECTOR [employer] REVENUE nasopharynx HEPATITIS C VIRUS AB Routine 11/17/2022 Adenocarcinoma of Re sults for SCREEN W/REFLEX HCV PCR 12:11 PM DIRECTOR OF REVENUE nasopharynx this procedure are in the results section. PATHOLOGY OUTSIDE Routine 10/16/2022 Results fo r INTERPRETATION this procedur e are in the results section. after 07/01/2022 Results ACTH (06/17/2023 12:29 PM CDT)Only the most recent of3 resultswithin the time period is included. athologist Signature ACTH 23 7 - 63 pg/mL [place] Comment: Results greater than 1826 pg/mL may not be reliable due to matrix effect with extended dilution as it exceeds the petroleum refining firer's recommended limit. ACTH reference intervals are established for the morni hours from 7-10 am. Due to the circad katie rhythm of ACTH levels in plasma, the sample col lection time must be noted. Caution should be exercised when interpreting such values and done in conjunction with clinical context. Testing performed at [facility], [address] [place] [address] Specimen Anatomical Collection Method Collection Time Receive d Time (Source) Location / / Volume Laterality Blood 06/17/2023 12:29 06/17/2023 PM CDT 12:29 PM CDT Marily Garcia APRN LAB BLOOD ORDERABLES Performing Organization Address City/State/ZIP Code Phon e Number [facility] [place] [address] [place] [address] Cortisol, Total (06/17/2023 12:29 PM CDT)Only the most recent of3 resultswithin the time period is included. [facility] Cortisol, Total 8.07 4.80 - [place] 19.50 mcg/dL Comment: Cortisol reference intervals are [...] (4-8pm) (2.5 - 11.9) Testing performed at [facility], [address] [facility], [place] [address] Specimen Anatomical Collection Method Collection Time Receive d Time (Source) Location / / Volume Laterality Blood 06/17/2023 12:29 06/17/2023 PM CDT 12:29 PM CDT Marily Garcia BORSI LAB BLOOD ORDERABLES Performing Organization Address City/State/[place] [address] [place] [address] MRI Orbits with and without Contrast (04/22/2023 [...] athologist Signature Creatinine 0.80 0.51 - 0.95 [place] mg/dL Comment: Testing performed at [facility], [address] [place] [address] Specimen Anatomical Collection Method Collection Time Receive d Time (Source) Location / / Volume Laterality Blood 04/22/2023 12:28 04/22/2023 PM CDT 12:29 PM CDT Narrative [place] - 04/22/2023 1:04 PM CDT Coordinate all on same day. Ok to schedu le 1-2 weeks following 04/14 to coordinate appts Winter Luu MD LAB BLOOD ORDERABLES Performing Organization Address City/State/ZIP Code Phon e Number [place], [place] [id number] [place] [address] (ABNORMAL) .CBC (04/22/2023 12:28 PM CDT)Only the most recent of44 resultswithin the time period is included. athologist Signature WBC 6.5 4.0 - 11.0 [place] K/uL Comment: All components of the CBC perfo rmed at [facility], [address] [place] [address] 77 3 RBC 4.39 4.00 - 5.50 M/uL [place] Comment: All components of the CBC perfo rmed at [facility], [address] [place] [address] 7757 3 Hgb 14.3 12.0 - 16.0 gm/dL [place] Comment: As part of CBC or as an individ ual orderable testing performed at [facility], [address] [place] [address] Hct 43.7 37.0 - 47.0 % [place] Comment: As part of CBC testing performe d at [facility], [address] [place] [address] MCV 100 (H) 82 - 98 fL [place] Comment: As part of CBC testing performe d at [facility], [address] [place] [address] MCH 32.6 (H) 27.0 - 31.0 pg [place] Comment: As part of CBC testing performe d at [facility], [address] [place] [address], [place] [address] MCHC 32.7 31.0 - 36.0 gm/dL [place] Comment: As part of CBC testing performe d at [facility], [address] [place] [address] RDW-SD 45.6 35.1 - 46.3 fL [place] Comment: As part of CBC testing performe d at [facility], [address] [place] [address] RDW-CV 12.1 12.0 - 15.5 % [place] Comment: As part of CBC testing performe d at [facility], [address] [place] [address], [place] [address] Platelet count 150 140 - 440 K/uL [facility] Y Comment: As part of CBC or an individual orderable testing performed at [facility], [address] [place] [address] MPV 9.6 4.0 - 10.4 fL [place] Comment: As part of CBC testing performe d at [facility], [address] [place] [address], [place] [address] Specimen Anatomical Collection Method Collection Time Receive d Time (Source) Location / / Volume Laterality Blood 04/22/2023 12:28 04/22/2023 PM CDT 12:29 PM CDT Narrative [place] - 04/22/2023 12:33 PM CDT Coordinate all on same day. Ok to schedu le 1-2 weeks following 04/14 to coordinate appts Winter Luu MD LAB BLOOD ORDERABLES Performing Organization Address City/State/ZIP Code [place] [address] [place] [address] Glomerular Filtration Rate (04/22/2023 12:28 PM CDT)Only the most recent of44 resultswithin the time period is included. athologist Signature eGFR 86 >=60 [place] mL/min/1.73 sq. m Comment: The eGFRcr is [...] fulfill criteria for CKD. Testing performed at [facility], [address] [place] [address] Specimen Anatomical Collection Method Collection Time Receive d Time (Source) Location / / Volume Laterality Blood 04/22/2023 12:28 04/22/2023 PM CDT 12:29 PM CDT Narrative [place] - 04/22/2023 1:04 PM CDT Coordinate all on same day. Ok to schedu le 1-2 weeks following 04/14 to coordinate appts Winter Luu MD LAB BLOOD ORDERABLES Performing Organization Address City/State/[place] [address] [place] [address] (ABNORMAL) IGF-1 (04/22/2023 12:28 PM CDT)Only the most recent of2 resultswithin the time period is included. athologist Signature Insulin-Like 226 (H) 37 - 208 [facility] Growth Factor ng/mL [facility] IGF Z-score 2.33 -2.0 - 2.0 [facility] Comment: ADDITIONAL INFORMATIO N This test was developed and its performa nce characteristics determined by [facility] in a manner co nsistent with CLIA requirements. This test has not been sisi ared or approved by the U.S. Food and Drug Administration. Test Performed by: [facility] - [facility] [address] [place] [address] Exterminator Helper: Yonathan Guzman M.D. Ph. D.; CLIA# [id number] Specimen Anatomical Collection Method Collection Time Receive d Time (Source) Location / / Volume Laterality Blood 04/22/2023 12:28 04/22/2023 PM CDT 12:29 PM CDT Narrative [facility] - 3:42 PM CDT Coordinate all on same day. Ok to schedule 1-2 weeks following 04/14 to coordinate appts 8am Fasting Winter Luu MD LAB BLOOD ORDERABLES Performing Organization Address City/[facility] Phon e Number [facility] Unless otherwise noted, [address] all lab tests performed by: Division of Pathology and Laboratory Medicine [facility] Prolactin (04/22/2023 12:28 PM CDT)Only the most recent of2 resultswithin the time period is included. athologist Signature Prolactin 10.9 4.8 - 23.3 [facility] ng/mL [facility] Comment: Results greater than 4700.0 ng/ mL may not be reliable due to matrix effect with extended dilution as it exceeds the petroleum refining firer s recommended limit. Caution should be e xercised when interpreting such values and done in conjunction with clinical contex t. Specimen Anatomical Collection Method Collection Time Receive d Time (Source) Location / / Volume Laterality Blood 04/22/2023 12:28 04/22/2023 8:43 PM CDT PM CDT Narrative [facility] - 9:07 PM CDT Coordinate all on same day. Ok to schedule 1-2 weeks following 04/14 to coordinate appts 8am Fasting Winter Luu MD LAB BLOOD ORDERABLES Performing Organization Address City/[facility] Phon e Number [facility] Unless otherwise noted, [address] all lab tests performed by: Division of Pathology and Laboratory Medicine [address] [place] Estradiol (Women) (04/22/2023 12:28 PM CDT)Only the most recent of2 results within the time period is included. athologist [facility] Estradiol <11 pg/mL [facility] Comment: Reference Ranges: Adult Females: [...] 04/22/2023 8:43 PM CDT PM CDT Narrative [facility] - 9:07 PM CDT Coordinate all on same day. Ok to schedule 1-2 weeks following 04/14 to coordinate appts 8am Fasting Winter Luu MD LAB BLOOD ORDERABLES Performing Organization Address City/State/ZIP Code Phon e Number [facility] CANCER Unless otherwise noted, [address] all lab tests performed by: Division of Pathology and Laboratory Medicine [address] [place] (ABNORMAL) Differential (04/22/2023 12:28 PM CDT)Only the most recent of44 resultswithin the time period is included. athologist [facility] Neutrophil % 86.1 (H) 42.0 - [place] 66.0 % Comment: All components of the Different ial performed at [facility], [address] [place] [address] Lymphocyte % 10.9 (L) 24.0 - 44.0 % [place] Comment: As part of the Differential hailey ting performed at [facility], [address] [place] [address] Monocyte % 2.3 2.0 - 7.0 % [place] Comment: As part of the Differential hailey ting performed at [facility], [address] [place] [address], [place] [address] Eosinophil % 0.2 (L) 1.0 - 4.0 % [place] Comment: As part of the Differential hailey ting performed at [facility], [address] [place] [address], [place] [address] Basophil % 0.2 0.0 - 1.0 % [place] Comment: As part of the Differential hailey ting performed at [facility], [address] [place] [address], [place] [address] IGRE % 0.3 0.0 - 0.4 % [place] Comment: IGRE % count includes Metamyelocytes, My elocytes, and Promyelocytes. As part of the Differential testing perf ormed at [facility], [address] [place] [address], [place] [address] Neutrophil Abs 5.62 1.70 - 7.30 K/uL [facility] Comment: As part of the Differential hailey ting performed at [facility], [address] [place] [address], [place] [address] Lymphocyte Abs 0.71 (L) 1.00 - 4.80 K/uL [facility] Comment: As part of the Differential hailey ting performed at [facility], [address] [place] [address], [place] [address] Monocyte Abs 0.15 0.08 - 0.70 K/uL [facility] Comment: As part of the Differential hailey ting performed at [facility], [address] [place] [address], [place] [address] Eosinophil Abs 0.01 (L) 0.04 - 0.40 K/uL [facility] Comment: As part of the Differential hailey ting performed at [facility], [address] [place] [address], [place] [address] Basophil Abs 0.01 0.00 - 0.10 K/uL [facility] Comment: As part of the Differential hailey ting performed at [facility], [address] [place] [address] IG Abs 0.02 0.00 - 0.04 K/uL [place] Comment: As part of the Differential hailey ting performed at [facility], [address] [place] [address] Specimen Anatomical Collection Method Collection Time Receive d Time (Source) Location / / Volume Laterality Blood 04/22/2023 12:28 04/22/2023 PM CDT 12:29 PM CDT [facility] - 04/22/2023 12:33 PM CDT Coordinate all on same day. Ok to schedu le 1-2 weeks following 04/14 to coordinate appts Winter Luu MD LAB BLOOD ORDERABLES Performing Organization Address City/State/ZIP Code Phon e Number [place], [place] [id number] [place] [address] BUN (04/22/2023 12:28 PM CDT)Only the most recent of44 resultswithin the time period is included. P athologist Signature BUN 12 6 - 23 mg/dL [place] Comment: Testing performed at [facility], [address] [place], [place] [id number] Specimen Anatomical Collection Method Collection Time Receive d Time (Source) Location / / Volume Laterality Blood 04/22/2023 12:28 04/22/2023 PM CDT 12:29 PM CDT [facility] - 04/22/2023 1:04 PM CDT Coordinate all on same day. Ok to schedu le 1-2 weeks following 04/14 to coordinate appts Winter Luu MD LAB BLOOD ORDERABLES Performing Organization Address City/State/ZIP Code Phon e Number [place], [place] [id number] [place] [address] Total T3 (04/22/2023 12:28 PM CDT)Only the most recent of2 resultswithin the time period is included. P athologist Signature T3 Total 117 80 - 200 [place] ng/dL Comment: Performed at [facility], [address] [place] [address] Specimen Anatomical Collection Method Collection Time Receive d Time (Source) Location / / Volume Laterality Blood 04/22/2023 12:28 04/22/2023 PM CDT 12:29 PM CDT [facility] - 04/22/2023 1:04 PM CDT Coordinate all on same day. Ok to schedule 1-2 weeks following 04/14 to coordinate appts 8am Fasting Winter Luu MD LAB BLOOD ORDERABLES Performing Organization Address City/[facility]/[place] [address] [place] [address] TSH (04/22/2023 12:28 PM CDT)Only the most recent of3 resultswithin the time period is included. athologist Signature TSH 1.06 0.27 - 4.20 [place] mcunit/mL Comment: Testing performed at [facility], [address] [place] [address] Specimen Anatomical Collection Method Collection Time Receive d Time (Source) Location / / Volume Laterality Blood 04/22/2023 12:28 04/22/2023 PM CDT 12:29 PM CDT [facility] - 04/22/2023 1:04 PM CDT Coordinate all on same day. Ok to schedule 1-2 weeks following 04/14 to coordinate appts 8am Fasting Winter Luu MD LAB BLOOD ORDERABLES Performing Organization Address City/[facility] [place] [address] [place] [address] Free T4 (04/22/2023 12:28 PM CDT)Only the most recent of3 resultswithin the time period is included. athologist Signature T4 Free 1.21 0.93 - 1.70 [place] ng/dL Comment: Testing performed at [facility], [address] [place] [address] Specimen Anatomical Collection Method Collection Time Receive d Time (Source) Location / / Volume Laterality Blood 04/22/2023 12:28 04/22/2023 PM CDT 12:29 PM CDT [facility] - 04/22/2023 1:04 PM CDT Coordinate all on same day. Ok to schedule 1-2 weeks following 04/14 to coordinate appts 8am Fasting Winter Luu MD LAB BLOOD ORDERABLES Performing Organization Address City/State/ZIP [place] [address] [address] [facility] LH (04/22/2023 12:28 PM CDT)Only the most recent of2 resultswithin the time period is included. athologist Signature LH 8.7 mIU/mL [facility] Comment: Female Luteinizing Hormone Reference Ran ges: LOW HIGH Follicular 2.4 12.6 Ovulation 14.0 95.6 Luteal 1.0 11.4 Postmenopause 7.7 58.5 Specimen Anatomical Collection Method Collection Time Receive d Time (Source) Location / / Volume Laterality Blood 04/22/2023 12:28 04/22/2023 8:43 PM CDT PM CDT Narrative [facility] - 9:07 PM CDT Coordinate all on same day. Ok to schedule 1-2 weeks following 04/14 to coordinate appts 8am Fasting Winter Luu MD LAB BLOOD ORDERABLES Performing Organization Address City/State/ZIP Code Phon e Number [facility] Unless otherwise noted, [place] [address] [place] all lab tests performed by: Division of Pathology and Laboratory Medicine [facility] [place] [facility] (04/22/2023 12:28 PM CDT)Only the most recent of2 resultswithin the time period is included. athologist Signature FSH 30.1 mIU/mL [facility] Comment: Female Follicle Stimulating Hormone Refe rence Ranges: L OW HIGH Follicular 3.5 12.5 Ovulation 4.7 21.5 Luteal 1.7 7.7 Postmenopause 25.8 134.8 Specimen Anatomical Collection Method Collection Time Receive d Time (Source) Location / / Volume Laterality Blood 04/22/2023 12:28 04/22/2023 8:43 PM CDT PM CDT Narrative [facility] - 3 9:07 PM CDT Coordinate all on same day. Ok to schedule 1-2 weeks following 04/14 to coordinate appts 8am Fasting Winter Luu MD LAB BLOOD ORDERABLES Performing Organization Address City/State/ZIP Code Phon e Number [facility] Unless otherwise noted, [place] [address] [place] all lab tests performed by: Division of Pathology and Laboratory Medicine [address] (ABNORMAL) Electrolyte Panel (04/22/2023 12:28 PM CDT)Only the most recent of45 resultswithin the time period is included. athologist Signature Sodium Lvl 135 (L) 136 - 145 [place] mEq/L Comment: Testing performed at [facility], [address] [place] [address] Potassium Lvl 4.7 3.5 - 5.1 mEq/L [facility] Y Comment: Testing performed at [facility], [address] [place] [address] Chloride 96 (L) 98 - 107 mEq/L [place] Comment: Testing performed at [facility], [address] [place] [address] CO2 21 (L) 22 - 29 mEq/L [place] Comment: Testing performed at [facility], [address] [place] [address] Anion Gap 18 (H) 4 - 14 mEq/L [place] Comment: Testing performed at [facility], [address] [place] [address] Specimen Anatomical Collection Method Collection Time Receive d Time (Source) Location / / Volume Laterality Blood 04/22/2023 12:28 04/22/2023 PM CDT 12:29 PM CDT Narrative [place] - 04/22/2023 1:04 PM CDT Coordinate all on same day. Ok to schedu le 1-2 weeks following 04/14 to coordinate appts Winter Luu MD LAB BLOOD ORDERABLES Performing Organization Address City/State/ZIP Code Phon e Number [place], [place] [phone] [place] [address] Fractionated Bilirubin (03/11/2023 11:15 AM CDT)Only the most recent of24 resultswithin the time period is included. athologist Signature Bili Total <0.3 <=1.2 mg/dL [place] Comment: Direct and indirect bilirubin will not b e reported when Total bilirubin result is <0.3 mg/dL Indocyanine Green (ICG) may cause falsel y elevated bilirubin results. Total and direct bilirubin must not be measured from samples containing indocyanine green. False elevation of total bilirubin can b e seen in patients with IgG concentrations above 28 g/L. Testing performed at [facility], [address] [place] [address] Specimen Anatomical Collection Method Collection Time Receive d Time (Source) Location / / Volume Laterality Blood 03/11/2023 11:15 03/11/2023 AM CDT 11:16 AM CDT [facility] - 03/11/2023 11:40 AM CDT Follow up at 1120, lab prior and infusio n after Lorena Hdez APRN LAB BLOOD ORDERABLES Performing Organization Address City/State/ZIP Code Phon e Number [place], [place] [phone] [place] [address] (ABNORMAL) ALT (03/11/2023 11:15 AM CDT)Only the most recent of24 resultswithin the time period is included. athologist Signature ALT 40 (H) <=33 U/L [place] Comment: Testing performed at [facility], [address] [place] [address] Specimen Anatomical Collection Method Collection Time Receive d Time (Source) Location / / Volume Laterality Blood 03/11/2023 11:15 03/11/2023 AM CDT 11:16 AM CDT Narrative [place] - 03/11/2023 11:40 AM CDT Follow up at 1120, lab prior and infusio n after Lorena Hdez APRN LAB BLOOD ORDERABLES Performing Organization Address City/State/ZIP Code Phon e Number [place], [place] [phone] [place] [address] Aspartate Aminotransferase (03/11/2023 11:15 AM CDT)Only the most recent of24 resultswithin the time period is included. athologist Signature AST 26 <=32 U/L [place] Comment: Testing performed at [facility], [address] [place] [address] Specimen Anatomical Collection Method Collection Time Receive d Time (Source) Location / / Volume Laterality Blood 03/11/2023 11:15 03/11/2023 AM CDT 11:16 AM CDT [facility] - 03/11/2023 11:40 AM CDT Follow up at 1120, lab prior and infusio n after Lorena Hdez APRN LAB BLOOD ORDERABLES Performing Organization Address City/[facility]/ZIP Code Phon e Number [address] Total Protein (03/11/2023 11:15 AM CDT)Only the most recent of24 resultswithin the time period is included. athologist Signature Total Protein 7.0 6.4 - 8.3 [place] g/dL Comment: Testing performed at [facility], [address] [place] [address] Specimen Anatomical Collection Method Collection Time Receive d Time (Source) Location / / Volume Laterality Blood 03/11/2023 11:15 03/11/2023 AM CDT 11:16 AM CDT [facility] - 03/11/2023 11:40 AM CDT Follow up at 1120, lab prior and infusio n after Lorena Hdez APRN LAB BLOOD ORDERABLES Performing Organization Address City/[facility]/ZIP Code Phon e Number [address] (ABNORMAL) Alkaline Phosphatase (03/11/2023 11:15 AM CDT)Only the most recent of 24 resultswithin the time period is included. athologist Signature Alk Phos 107 (H) 35 - 104 [place] U/L Comment: Testing performed at [facility], [address] [place] [address], [place] [address] Specimen Anatomical Collection Method Collection Time Receive d Time (Source) Location / / Volume Laterality Blood 03/11/2023 11:15 03/11/2023 AM CDT 11:16 AM CDT Narrative [place] - 03/11/2023 11:40 AM CDT Follow up at 1120, lab prior and infusio n after Lorena Garza Lemuel ESCALANTE LAB BLOOD ORDERABLES Performing Organization Address City/[facility]/ZIP Code Phon e Number [place], [place] [phone] [place] [address] (ABNORMAL) Magnesium Level (03/11/2023 11:15 AM CDT)Only the most recent of42 resultswithin the time period is included. athologist Signature Magnesium 1.4 (L) 1.6 - 2.6 [place] mg/dL Comment: Testing performed at [facility], [address] [place] [address] Specimen Anatomical Collection Method Collection Time Receive d Time (Source) Location / / Volume Laterality Blood 03/11/2023 11:15 03/11/2023 AM CDT 11:16 AM CDT Yan [place] - 03/11/2023 11:40 AM CDT Follow up at 1120, lab prior and infusio n after Lorena Kayla Hdez APRN LAB BLOOD ORDERABLES Performing Organization Address City/State/ZIP Code Phon e Number [place], [place] [phone] [place] [address] (ABNORMAL) Glucose Level (03/11/2023 11:15 AM CDT)Only the most recent of43 resultswithin the time period is included. athologist Signature Glucose Level 324 (H) 70 - 99 [place] mg/dL Comment: Effective 05/27/16, the glucose reference intervals have been updated based on [place] [employer] guidelines (Standards of Medical Care in Diabetes 2016. Diabetes Care 2016; 39: S13-S22). Fasting blood glucose: Normal: 70-99 mg/dL Impaired fasting glucose (increased risk for diabetes or pre-diabetes): 100- 125 mg/dL Diabetes mellitus: >/=126 mg/dL Random blood glucose: Normal: 70-199 mg/dL Note: Random glucose >100 mg/dL is assoc iated with increased risk for diabetes Testing performed at [facility], [address] [place] [address] Specimen Anatomical Collection Method Collection Time Receive d Time (Source) Location / / Volume Laterality Blood 03/11/2023 11:15 03/11/2023 AM CDT 11:16 AM CDT [facility] - 03/11/2023 11:40 AM CDT Follow up at 1120, lab prior and infusio n after Lorena Hdez APRN LAB BLOOD ORDERABLES Performing Organization Address City/State/ZIP Code Phon e Number [place], [place] [phone] [place] [address] Calcium Level (03/11/2023 11:15 AM CDT)Only the most recent of43 resultswithin the time period is included. athologist Signature Calcium Lvl 9.3 8.4 - 10.2 [place] mg/dL Comment: Testing performed at [facility], [address] [place] [address] Specimen Anatomical Collection Method Collection Time Receive d Time (Source) Location / / Volume Laterality Blood 03/11/2023 11:15 03/11/2023 AM CDT 11:16 AM CDT [facility] - 03/11/2023 11:40 AM CDT Follow up at 1120, lab prior and infusio n after Lorena Hdez APRN LAB BLOOD ORDERABLES Performing Organization Address City/State/ZIP Code Phon e Number [place], [place] [phone] [place] [address] Albumin Level (03/11/2023 11:15 AM CDT)Only the most recent of24 resultswithin the time period is included. athologist Signature Albumin Lvl 3.9 3.5 - 5.2 [place] gm/dL Comment: Testing performed at [facility], [address] [place] [address] Specimen Anatomical Collection Method Collection Time Receive d Time (Source) Location / / Volume Laterality Blood 03/11/2023 11:15 03/11/2023 AM CDT 11:16 AM CDT Narrative [place] - 03/11/2023 11:40 AM CDT Follow up at 1120, lab prior and infusio n after Lorena Garza Lemuel ESCALANTE LAB BLOOD ORDERABLES Performing Organization Address City/[facility]/ZIP Code Phon e Number [facility] [place] [address] [address] [facility] (ABNORMAL) POC Glucose Screen (02/16/2023 [...] Sample Type Capillary POC TEL[facility] Performing Lab [facility] POC TELCO R Comment: [facility], [address] [place] [address], [place] [address]; Lab Direct or: Chula Jacob MD; Waived Point of Care Testing - Gabrielle Mueller MD Specimen Anatomical Collection Method Collection Time Receive d Time (Source) Location / / Volume Laterality Blood 02/16/2023 12:02 02/16/2023 PM CDT 12:02 PM CDT Ashleigh Rangel MD POCT ORDERABLES - BRAYDON Monk Performing Organization Address City/State/ZIP Code Phon e Number POC [facility] Unless otherwise noted, [place] [address] lab tests performed by: Division of Pathology and Laboratory Medicine [address] [place] [address] (ABNORMAL) Anti-Xa Level (02/16/2023 11:13 AM CDT) athologist Signature Anti-Xa Level 1.45 (H) 0.00 - [facility] 0.10 [place] unit/mL [facility] Comment: Anti-Xa Level (Heparin assay for [...] Ref: Chest 2008; 133;141S-1598S Hep Type Enoxaparin [facility]ENTER Specimen Anatomical Collection Method Collection Time Receive d Time (Source) Location / / Volume Laterality Blood 02/16/2023 11:13 02/16/2023 AM CDT 11:21 AM CDT Narrative [facility] - 3 1:11 PM CDT Nurse please coordinate with lab to draw n Anti-Xa level (low molecular weight heparin level) 4 hours after 02/16/23 morning kourtney xaparin dose is given. Angeli Wang MD LAB BLOOD ORDERABLES Performing Organization Address City/State/ZIP Code Phon e Number [facility] Unless otherwise noted, [address] all lab tests performed by: Division of Pathology and Laboratory Medicine [address] [place] [address] Phosphorus Level (02/16/2023 6:15 AM CDT)Only the most recent of40 resultswithin the time period is included. [facility] Phosphorus 4.3 2.5 - 4.5 [facility] mg/dL [facility] Specimen Anatomical Collection Method Collection Time Receive d Time (Source) Location / / Volume Laterality Blood 02/16/2023 6:15 AM 3 6:59 CDT AM CDT DEEPTI Harrell APRN LAB BLOOD ORDERABLES Performing Organization Address City/State/ZIP Code Phon e Number [facility] Unless otherwise noted, [place] [address] CENTER all lab tests performed by: Division of Pathology and Laboratory Medicine [address] [facility] Add-On Test (02/12/2023 9:33 AM CDT)Only the most recent of4 resultswithin the time period is included. Patholo gist Method Time Signature Ordered Test Added [facility] Test Needed procalcitonin [facility] Specimen Anatomical Collection Method Collection Time Receive d Time (Source) Location / / Volume Laterality Existing 02/12/2023 9:33 AM 3 9:34 CDT AM CDT Kimberli GALE LAB BLOOD ORDERABLES Performing Organization Address City/State/ZIP Code Phon e Number [facility] Unless otherwise noted, [place] [phone] [place] all lab tests performed by: Division of Pathology and Laboratory Medicine [facility] (ABNORMAL) Procalcitonin (02/12/2023 5:34 AM CDT)Only the most recent of4 resultswithin the time period is included. P athologist Signature Procalcitonin 0.38 (H) <=0.08 [facility] ng/[facility] Comment: Procalcitonin > 2.00 ng/mL: Procalcit [...] with extended dilution as it exceeds the petroleum refining firer's recommended limit. Caution should be exercised when interpreting such values and done in conjunction with clinical context. Specimen Anatomical Collection Method Collection Time Receive d Time (Source) Location / / Volume Laterality Blood 02/12/2023 5:34 AM 3 6:18 CDT AM CDT DEEPTI Harrell APRN LAB BLOOD ORDERABLES Performing Organization Address City/State/ZIP Code Phon e Number [facility] [place] [facility] Unless otherwise noted, [place] [address] CENTER all lab tests performed by: Division of Pathology and Laboratory Medicine [address] Maxillofacial Area with Contrast (02/11/2023 4:15 [...] athologist Signature CK 125 26 - 192 [facility] U/L [facility] CENTER Specimen Anatomical Collection Method Collection Time Receive d Time (Source) Location / / Volume Laterality Blood 02/09/2023 5:37 AM 3 6:08 CDT AM CDT Shelby GALE LAB BLOOD ORDERABLES Performing Organization Address City/State/ZIP Code Phon e Number [facility] Unless otherwise noted, [place] [address] CENTER all lab tests performed by: Division of Pathology and Laboratory Medicine [address] [place] [address] US Arm Venous Doppler Bilateral (02/08/2023 6:28 [...] [place]. I personally reviewed these image(s) [email or web address] with the resident's/fellow's interpretations, certify that if a procedure was performed I was physically present, and agree with the final report. Narrative 02/08/2023 7:43 PM CDT Examination: US ARM VENOUS DOPPLER [facility], 02/08/2023 6:28 PM Clinical History: Adenoid [...] - 02/08/2023 Examination: US ARM VENOUS DOPPLER [facility], 02/08/2023 6:28 PM Clinical History: Adenoid [...] was not perform ed in this study. (Instabeat Study). Diastology: Indeterminate. Right Ventricle: The right [...] EDV(MOD-bp): 190.6 ml EF(MOD-A2C): 65.3 % ESV(MOD-bp): 71. 5 ml EF(MOD-bp): 62.5 % LAV(MOD-A4C): 71.8 ml EDV (MOD-bp) Index: 81.9 ml/m2 ESV (MOD-bp) Index: 30.7 ml/m2 RWT: 0.53 cm Doppler Measurements MV E max aeljandra: 99.6 cm/sec MV V2 max: 109.5 cm/sec [...] V2 VTI: 29.9 cm Med Peak E' Aljeandra: 6.3 cm/sec Lat Peak E' Alejandra: 10.9 cm/sec TR max alejandra: 242.7 cm/sec RAP systole : 3.0 mmHg TR max P.6 mmHg RVSP(TR): 26.6 mmHg NGOZI Index (I,D): 0.80 NGOZI Index (V,D ): 0.74 Dimensionless Index: 0.58 E/e' (avg) : 11.6 E/e' (lat): 9.2 E/e' (sept): 15.7 Son Amelia Soria CV ECHO ORDERABLES Performing Organization Address City/State/ZIP [...] purpose. For additional information please refer to http://education.Acopio.Coupons.com/fa q/WKT972 (This link is being provided for informa tional/ educational purposes only.) The performance of this assay has not be en clinically validated in patients less than 2 years old. Lab test performed by: Lab Mnemonic: [employer] [address] [id number] JOSE ELIAS MELÉNDEZ MD Specimen Anatomical Collection Method Collection Time Receive d Time (Source) Location / / Volume Laterality Blood 02/07/2023 6:52 AM 3 7:22 CDT AM CDT Thao Soria MD LAB BLOOD ORDERABLES Performing Organization Address City/[facility] Phon e Number [facility] Hepatitis C Virus Ab (02/07/2023 6:52 AM CDT)Only the most recent of2 results within the time period is included. Patholo gist Method Time Signature HCVAb. Non Reactive Non Reactive [facility] [place] Comment: Antibody detection in the immunocompromi sed [...] MD LAB BLOOD ORDERABLES Performing Organization Address City/[facility] Phon e Number [facility] Unless otherwise noted, [address] all lab tests performed by: Division of Pathology and Laboratory Medicine [address] [place] [address] Hepatitis B Total Ig Core Ab (SCREENING) (anti-HBc total Ig; HBcAb total Ig) (02/07/2023 6:52 AM CDT) [facility] Method Time Signature HBcAb. Non Reactive Non Reactive [facility] Specimen Anatomical Collection Method Collection Time Receive d Time (Source) Location / / Volume Laterality Blood 02/07/2023 6:52 AM 3 8:32 CDT AM CDT Thao Soria MD LAB BLOOD ORDERABLES Performing Organization Address City/[facility]/ZIP Code Phon e Number [facility] Unless otherwise noted, [address] all lab tests performed by: Division of Pathology and Laboratory Medicine [address] [place] [address] Hepatitis B Surface Ag (02/07/2023 6:52 AM CDT) [facility] Signature HBsAg. Non Reactive Non Reactive [facility] Specimen Anatomical Collection Method Collection Time Receive d Time (Source) Location / / Volume Laterality Blood 02/07/2023 6:52 AM 3 8:32 CDT AM CDT Thao Soria MD LAB BLOOD ORDERABLES Performing Organization Address City/[facility] Phon e Number [facility] Unless otherwise noted, [address] all lab tests performed by: Division of Pathology and Laboratory Medicine [address] [place] [address] Blood Culture (02/07/2023 6:52 AM CDT)Only the most recent of6 resultswithin the time period is included. athologist Signature Final Report No growth [facility] Specimen Anatomical Collection Method Collection Time Receive d Time (Source) Location / / Volume Laterality Blood 02/07/2023 6:52 AM 3 7:43 (Venipuncture-Ri CDT AM CDT ght) Comment: arm Tim Nguyen MD MICROBIOLOGY - GENERAL ORDER [place] Performing Organization Address City/[facility]/ZIP Code Phon e Number [facility] Unless otherwise noted, [address] all lab tests performed by: Division of Pathology and Laboratory Medicine [facility] [place] Transferrin with TIBC (02/07/2023 6:52 AM CDT) athologist Signature Transferrin 205 200 - 360 [facility] mg/dL [facility] TIBC 287 250 - 450 [facility] Specimen Anatomical Collection Method Collection Time Receive d Time (Source) Location / / Volume Laterality Blood 02/07/2023 6:52 AM 3 7:07 CDT AM CDT Thao Soria MD LAB BLOOD ORDERABLES Performing Organization Address [facility]/ZIP [facility] Phon e Number [facility] Unless otherwise noted, [address] all lab tests performed by: Division of Pathology and Laboratory Medicine [address] [place], [place] [address]d Iron Level (02/07/2023 6:52 AM CDT) athologist [facility] Iron 51 37 - 145 [facility] Specimen Anatomical Collection Method Collection Time Receive d Time (Source) Location / / Volume Laterality Blood 02/07/2023 6:52 AM 3 7:07 CDT AM CDT Thao Soria MD LAB BLOOD ORDERABLES Performing Organization Address [facility] Phon e Number [facility] Unless otherwise noted, [address] all lab tests performed by: Division of Pathology and Laboratory Medicine [address] [place] [address] (ABNORMAL) Hemoglobin A1c (02/07/2023 6:52 AM CDT)Only the most recent of2 resultswithin the time period is included. athologist Signature A1C 10.2 (H) 4.3 - 5.6 % [facility] Comment: HbA1c values >=6.5% are [...] Organization Address City/State/ZIP Code Phon e Number [facility] Unless otherwise noted, [address] all lab tests performed by: Division of Pathology and Laboratory Medicine [address] [facility] (ABNORMAL) Ferritin Level (02/07/2023 6:52 AM CDT) athologist Signature Ferritin Lvl 320 (H) 13 - 150 [facility] ng/mL CANCER CENTER Specimen Anatomical Collection Method Collection Time Receive d Time (Source) Location / / Volume Laterality Blood 02/07/2023 6:52 AM 3 7:07 CDT AM CDT Thao Cisneros Estella GRIFFIN LAB BLOOD ORDERABLES Performing Organization Address City/[facility]/ZIP Code Phon e Number [facility] Unless otherwise noted, [address] all lab tests performed by: Division of Pathology and Laboratory Medicine [address] [place] (ABNORMAL) Lipid Panel (02/07/2023 6:52 AM CDT) athologist Signature Chol 137 <=199 mg/dL [facility] Comment: ATP III Classification of Total Choleste rol Primary Target of Therapy (in mg/dL): <200 Desirable 200-239 Borderline high >=240 High Trig 184 (H) <=149 mg/dL [facility] Comment: ATP III Classification of Serum Triglyce rides Primary Target of Therapy (in mg/dL): <150 Normal 150-199 Borderline high 200-499 High >=500 Very high Non-fasting triglycerides >200 mg/dL may be followed up with a fasting Lipid Panel. Calculated LDL-C may be falsely decreased when non-fasting triglycerides >200 mg/dL. HDL 27 (L) >=40 mg/dL [facility] CENTER LDL 73 <=100 mg/dL [facility] Comment: ATP III Classification of LDL Cholestero l Primary Target of Therapy (in mg/dL): <100 Optimal 100-129 Near optimal/above optimal 130-159 Borderline high 160-189 High >=190 Very high VLDL 37 mg/dL [facility] Specimen Anatomical Collection Method Collection Time Receive d Time (Source) Location / / Volume Laterality Blood 02/07/2023 6:52 AM 3 7:07 CDT AM CDT Thao Soria MD LAB BLOOD ORDERABLES Performing Organization Address City/State/ZIP Code Phon e Number [facility] Unless otherwise noted, [address] all lab tests performed by: Division of Pathology and Laboratory Medicine [facility] Michelle Hodges Clostridium Difficile DNA Path Review (02/07/2023 5:18 AM CDT) Component Value Ref Test Analysis Performed At [facility] gist Range Method Time Signature C diff DNA [place] Reviewed and Electronically signed by Pathologist: MA MD PATRICIA CHAVEZ MD #[id number] [facility] Comment: C. difficile Toxin DNA (Primary [...] for repeat testing. PATRICIA CHAVEZ MD - [id number] Dictated by: PATRICIA CHAVEZ MD - [id number] Dictated Date/Time: 02.07.2023 16:35 PM CDT Transcribed Date/Time: 02.07.2023 16:35 PM CDT Electronically Signed By: PATRICIA OTTO MD - [id number] on 02.07.2023 16:35 PM Specimen Anatomical Collection Method Collection Time Receive d Time (Source) Location / / Volume Laterality Stool 02/07/2023 5:18 AM 3 8:07 CDT AM CDT Thao Soria MD MICROBIOLOGY - GENERAL ORDER [place] Performing Organization Address City/State/ZIP Code Phon e Number [facility] Unless otherwise noted, [address] all lab tests performed by: Division of Pathology and Laboratory Medicine [facility] Michelle Hodges Clostridium Difficile DNA Assay (02/07/2023 5:18 AM CDT) Patholo gist Method Time Signature C difficile DNA Negative Negative [facility] C difficle Toxin Test Not Negative [facility] EIA Performed [facility] C difficile C. difficile [facility] Interpretation DNA [place] detection CANCER was negative CENTER making C. difficile infection highly unlikely in this patient. EIA not performed. Specimen Anatomical Collection Method Collection Time Receive d Time (Source) Location / / Volume Laterality Stool 02/07/2023 5:18 AM 6:14 CDT AM CDT Thao Cisneros Soria MICROBIOLOGY - GENERAL ORDER [place] Performing Organization Address City/State/ZIP Code Phon e Number [facility] Unless otherwise noted, [place] [address] CENTER all lab tests performed by: Division of Pathology and Laboratory Medicine [facility] Gastrointestinal Multiplex Panel (02/07/2023 5:16 AM CDT) Component Value Ref Range Test Analysis Performed Pathologis t Method Time At [facility] Campylobacter Not Detected Not [facility] Detected [facility] C difficile DNA (GI Refer to [facility] Multi Panel) separate C. [place] difficile DNA CANCER Assay for CENTER results Plesiomonas Not Detected Not [facility] shigelloides Detected [facility] Salmonella Not Detected Not [facility] Detected [facility] Vibrio Not Detected Not [facility] Detected [facility] Vibrio cholerae Not Detected Not [facility] Detected [facility] Yersinia Not Detected Not [facility] enterocolitica Detected [facility] Enteroaggregative E. Not Detected Not [facility] coli (EAEC) Detected [facility] Enteropathogenic E. Not Detected Not [facility] coli (EPEC) Detected [facility] Enterotoxigenic E. Not Detected Not [facility] coli (ETEC) Detected [facility] Shiga-like Not Detected Not [facility] toxin-producing E. Detected [place] col (STEC) [facility] E. coli O157 Not Not [facility] Applicable Detected [facility] Shigella/Enteroinvas Not Detected Not [facility] rosales E. coli (EIEC) Detected [facility] Cryptosporidium Not Detected Not [facility] Detected [facility] Cyclospora Not Detected Not [facility] cayetanensis Detected [facility] Entamoeba Not Detected Not [facility] histolytica Detected [facility] Giardia lamblia Not Detected Not [facility] Detected [facility] Adenovirus F 40/41 Not Detected Not [facility] Detected [facility] Astrovirus Not Detected Not [facility] Detected [facility] Norovirus GI/GII Not Detected Not [place] Detected [facility] Rotavirus A Not Detected Not [place] Detected [facility] Sapovirus (I, II, IV Not Detected Not [place] and V) Detected [facility] Specimen Anatomical Collection Method Collection Time Receive d Time (Source) Location / / Volume Laterality Stool 02/07/2023 5:16 AM 3 6:13 CDT AM CDT Thao Soria MD MICROBIOLOGY - GENERAL ORDER [place] Performing Organization Address City/[facility] Phon e Number [place] [facility] Unless otherwise noted, [place] [address] [place] all lab tests performed by: Division of Pathology and Laboratory Medicine [facility] Gastrointestinal Multiplex Panel Path Review (02/07/2023 5:16 AM CDT) [facility] gist Method Time Signature [place] Reviewed and Electronically signed by Pathologist: CARLA CHAVEZ MD #[id number] [facility] Comment: Performed by real-time PCR methodology. [...] correlation is recommended. PATRICIA CHAVEZ MD - [id number] Dictated by: PATRICIA CHAVEZ MD - [id number] Dictated Date/Time: 02.07.2023 16:40 PM CDT Transcribed Date/Time: 02.07.2023 16:40 PM CDT Electronically Signed By: MD Suzie MARSHALL [id number] on 02.07.2023 16:40 PM Specimen Anatomical Collection Method Collection Time Receive d Time (Source) Location / / Volume Laterality Stool 02/07/2023 5:16 AM 3 CDT 6:13 AM CDT Thao Soria MD LAB BLOOD ORDERABLES Performing Organization Address City/[facility]/ZIP Code Phon e Number [facility] Unless otherwise noted, [address] all lab tests performed by: Division of Pathology and Laboratory Medicine [address] [facility], 12-Lead (Portable) (02/07/2023)Only the most recent of2 resultswithin the time period is included. Specimen (Source) Anatomical Location Collection Method / Collectio n Time Received Time / Laterality Volume Narrative This result has an attachment that is no t available. Romana Guy MD ECG ORDERABLES Performing Organization Address City/State/ZIP [facility] Phon e Number DARI IECG NT-Pro BNP (In-House) (02/06/2023 3:05 AM CDT)Only the most recent of2 results within the time period is included. athologist Signature NT ProBNP 83 <=125 pg/mL [facility] Specimen Anatomical Collection Method Collection Time Receive d Time (Source) Location / / Volume Laterality Blood 02/06/2023 3:05 AM 3 3:20 CDT AM CDT Cathie Meneses APRNAGAJHONYP LAB BLOOD ORDERABLES Performing Organization Address City/[facility] Phon e Number [facility] Unless otherwise noted, [address] all lab tests performed by: Division of Pathology and Laboratory Medicine [address] [place] CRP (02/06/2023 3:05 AM CDT)Only the most recent of3 resultswithin the time period is included. athologist Signature CRP 65.62 mg/L [facility] Comment: Reference ranges for HS [...] 3 3:20 CDT AM CDT Cathie Meneses BRIDGE CONSTRUCTION INSPECTOR,AGACNP LAB BLOOD ORDERABLES Performing Organization Address [facility] Phon e Number [facility] Unless otherwise noted, [address] all lab tests performed by: Division of Pathology and Laboratory Medicine [facility] Troponin T (In-House) (02/06/2023 1:09 AM CDT)Only the most recent of2 results within the time period is included. P athologist Signature Troponin T 10 <=19 ng/L [facility] Comment: < 19 ng/L Suggest [...] / Volume Laterality Blood 02/06/2023 1:09 AM 1:26 CDT AM CDT Romana Guy MD LAB BLOOD ORDERABLES Performing Organization Address [facility] Phon e Number [facility] Unless otherwise noted, [address] all lab tests performed by: Division of Pathology and Laboratory Medicine [facility] ([facility] Urine Culture (02/06/2023 12:40 AM CDT)Only the most recent of3 resultswithin the time period is included. Patholo gist Method Time Signature Final Report 10 - 50,000 cfu/ml Normal site isabel present. MA Generally of low significance. [place] Correlate with clinical data and culture history. CANCER CENTER (A) Specimen Anatomical Collection Method Collection Time Receive d Time (Source) Location / / Volume Laterality Urine 02/06/2023 12:40 02/06/2023 2:54 AM CDT AM CDT Irina Houston APRN MICROBIOLOGY - GENERAL ORDER GODWIN Performing Organization Address City/[facility]/ZIP Code Phon e Number [facility] Unless otherwise noted, [address] all lab tests performed by: Division of Pathology and Laboratory Medicine [address] [place] [address] aPTT (02/05/2023 8:26 PM CDT)Only the most recent of5 resultswithin the time period is included. P athologist Signature aPTT 28.5 22.8 - 34.2 [facility]() [facility] Specimen Anatomical Collection Method Collection Time Receive d Time (Source) Location / / Volume Laterality Blood 02/05/2023 8:26 PM 3 8:29 CDT PM CDT Deneen Guevara MD LAB BLOOD ORDERABLES Performing Organization Address City/[facility] Phon e Number [facility] Unless otherwise noted, [address] all lab tests performed by: Division of Pathology and Laboratory Medicine [address] [place] [address] VB Lactate (02/05/2023 8:26 PM CDT)Only the most recent of4 resultswithin the time period is included. P athologist Signature V Lactate 1.2 0.5 - 1.6 [facility] mmol/L [facility] Specimen Anatomical Collection Method Collection Time Receive d Time (Source) Location / / Volume Laterality Blood 02/05/2023 8:26 PM 3 8:29 CDT PM CDT Deneen Guevara MD LAB BLOOD ORDERABLES Performing Organization Address City/[facility]/ZIP [facility] Phon e Number [facility] Unless otherwise noted, [address] all lab tests performed by: Division of Pathology and Laboratory Medicine [address] [place] [address] (ABNORMAL) Prothrombin Time with INR (02/05/2023 8:26 PM CDT)Only the most recent of5 resultswithin the time period is included. P athologist Signature PT 14.7 (H) 11.9 - 14.1 [facility] INR 1.16 (H) 0.89 - 1.[address] [facility] Specimen Anatomical Collection Method Collection Time Receive d Time (Source) Location / / Volume Laterality Blood 02/05/2023 8:26 PM 3 8:29 CDT PM CDT Deneen Guevara MD LAB BLOOD ORDERABLES Performing Organization Address City/[facility]/ZIP Code Phon e Number [facility] Unless otherwise noted, [address] all lab tests performed by: Division of Pathology and Laboratory Medicine [facility] (ABNORMAL) D Dimer (02/05/2023 8:26 PM CDT) P athologist Signature D-Dimer 3.04 (H) 0.10 - 0.50 MA MD BLUM mcg/ml [facility] Comment: The cut off value for exclusion of venou s thromboembolism is <0.51 mcg/mL FEUs (fibrinogen equival ent units). Specimen Anatomical Collection Method Collection Time Receive d Time (Source) Location / / Volume Laterality Blood 02/05/2023 8:26 PM 3 8:29 CDT PM CDT Deneen Guevara MD LAB BLOOD ORDERABLES Performing Organization Address City/[facility]/ZIP Code Phon e Number [facility] Unless otherwise noted, [address] all lab tests performed by: Division of Pathology and Laboratory Medicine [facility] X-ray Abdomen AP (02/05/2023 6:59 PM CDT) [...] of4 resultswithin the time period is included. [facility] gist Method Time Signature COVID19 Not Detected Not Detected CARLA GRIFFIN (SARS-CoV-2) [facility] COVID19 SARS Inpatient CARLA GRIFFIN Indication Admission [facility] Covid 19 See Note CARLA GRIFFIN Comment [facility] Comment: The ruby SARS-CoV-2 nucleic acid test [...] fact sheet for patients provided by the petroleum refining firer ([employer]) can be reviewed at: https://www.fda.gov/media/924978/downloa d. A fact sheet for Health Care providers is provided by the petroleum refining firer ([employer]) and can be reviewed at: https://www.fda.gov/media/068328/download Results must be interpreted within the c [...] and high-complexity tests. The Microbiology Laboratory at [facility], CLIA Accreditation #[id number] a or CAP Accreditation #[id number], verified the performance characteristics of this assay. Internal controls are used to monitor all stages of the test process. Specimen (Source) Anatomical Collection Method Collection Time Re ceived Time Location / / Volume Laterality Nasopharyngeal Swab 02/05/2023 5:09 02/05 PM CDT 5:17 PM CDT Amanda Proctor MD MICROBIOLOGY - GENERAL ORDER GODWIN Performing Organization Address City/State/ZIP Code Phon e Number [facility] Unless otherwise noted, [address] all lab tests performed by: Division of Pathology and Laboratory Medicine [address] [place], [place] [address]d Lipase (02/05/2023 3:30 PM CDT)Only the most recent of4 resultswithin the time period is included. P athologist Signature Lipase Lvl 18 13 - 60 U/L [facility] Specimen Anatomical Collection Method Collection Time Receive d Time (Source) Location / / Volume Laterality Blood 02/05/2023 3:30 PM 3 3:39 CDT PM CDT Amanda Proctor MD LAB BLOOD ORDERABLES Performing Organization Address City/[facility]/ZIP [facility] Phon e Number [facility] Unless otherwise noted, [address] all lab tests performed by: Division of Pathology and Laboratory Medicine [address] [place] [address] CKMB (02/05/2023 3:30 PM CDT) athologist Signature CK MB <2.0 <=5.3 ng/mL [facility] Specimen Anatomical Collection Method Collection Time Receive d Time (Source) Location / / Volume Laterality Blood 02/05/2023 3:30 PM 3 3:39 CDT PM CDT Amanda Proctor MD LAB BLOOD ORDERABLES Performing Organization Address City/[facility]/ZIP [facility] Phon e Number [facility] Unless otherwise noted, [address] all lab tests performed by: Division of Pathology and Laboratory Medicine [address] [place] [address] Amylase Level (02/05/2023 3:30 PM CDT)Only the most recent of2 resultswithin the time period is included. P athologist Signature Amylase Lvl 43 28 - 100 [facility] U/L [facility] Specimen Anatomical Collection Method Collection Time Receive d Time (Source) Location / / Volume Laterality Blood 02/05/2023 3:30 PM 3 3:39 CDT PM CDT Amanda Proctor MD LAB BLOOD ORDERABLES Performing Organization Address City/[facility]/ZIP [facility] Phon e Number [facility] Unless otherwise noted, [address] all lab tests performed by: Division of Pathology and Laboratory Medicine [address] [place] [address] [place] (ABNORMAL) Urinalysis with Microscopic (02/05/2023 12:39 AM CDT) [facility] gist Method Time Signature UA Color [place] (A) Straw-Yel [facility] UA Appear Cloudy (A) Clear [facility] UA Glucose 500 (A) NEG mg/dL [facility] UA Bili NEG NEG [facility] UA Ketones 40 (A) NEG mg/dL [facility] UA Spec Grav 1.021 1.003 - [facility] 1.035 [facility] UA Blood NEG NEG [facility] UA pH 6.0 5.0 - 9.[address] [facility] UA Protein 20 (A) NEG mg/dL [facility] UA Urobilinogen NEG NEG [facility] UA Nitrite NEG NEG [facility] UA Leuk Est NEG NEG [facility] UA WBC NOT SEEN 0 - 2 [facility] Comment: Some reporting parameters within the Uri nalysis test have changed due to the implementation of new instrumentation in the [facility], allowing greater sensitivity of measurement. Urinalysis results rep orted by the [facility] using existing instrumentation, as well as Urinalysis t esting performed manually or by backup methodology at the [facility] will remain relatively unchanged. New reporting parameters and units will not be reported for all [place]. UA RBC 13 (H) 0 - 2 /HPF [facility] CENTER UA Mucous NOT SEEN Not Seen-Trace /HPF [facility] UA Bacteria NOT SEEN NOT SEEN /HPF [facility] UA Squam Epi OCC None-Occasional /HPF [facility] Specimen Anatomical Collection Method Collection Time Receive d Time (Source) Location / / Volume Laterality Urine 02/05/2023 12:39 02/06/2023 AM CDT 12:42 AM CDT Irina Houston APRN URINE ORDERABLES Performing Organization Address City/State/ZIP Code Phon e Number [facility] Unless otherwise noted, [place], [place] [id number] [place] [address] all lab tests performed by: Division of Pathology and Laboratory Medicine [facility] [address] [place] Tip Verification Central Vascular Access Device (01/29/2023 3:08 PM CDT) Justo Ross RN - 01/29/2023 3:08 PM CDT Justo Banuelos RN 01/29/2023 3:08 PM Central Vascular Access Device Tip Verif ication Performed by: Justo Banuelos RN Authorized by: Rashaun Wiley MD [employer] Date device placed: 01/29/2023 Placed by: Justo Banuelos RN Device placement location: [facility] Catheter Type: PICC Catheter lumen: Double [...] By: Rashaun Wiley MD Procedure Location: Inpatient Evaluator Transfer Students present: yes (Saeed GRIFFIN) 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 Informed consent obtained prior to procedure, the risks, benefits, and alternative discussed with patient/designated outside industrial sales representative. Pre-p rocedure the patient was [...] placement. placement and tip verified using tip product designer and place ment and tip verified by [...] athologist Signature Hgb 13.3 12.0 - 16.0 MA MD BLUM gm/dL [facility] Specimen Anatomical Collection Method Collection Time Receive d Time (Source) Location / / Volume Laterality Blood 01/28/2023 8:24 AM 3 8:30 CDT AM CDT Mana Powers APRN LAB BLOOD ORDERABLES Performing Organization Address City/State/ZIP Code Phon e Number [facility] Unless otherwise noted, [address] all lab tests performed by: Division of Pathology and Laboratory Medicine [address] [place] [address] Hematocrit (01/28/2023 8:24 AM CDT)Only the most recent of3 resultswithin the time period is included. athologist Signature Hct 40.6 37.0 - 47.0 [facility] Specimen Anatomical Collection Method Collection Time Receive d Time (Source) Location / / Volume Laterality Blood 01/28/2023 8:24 AM 3 8:30 CDT AM CDT Shayecarlos Powers APRN LAB BLOOD ORDERABLES Performing Organization Address City/[facility] Phon e Number [facility] Unless otherwise noted, [address] all lab tests performed by: Division of Pathology and Laboratory Medicine [address] [place] [address] (ABNORMAL) Urinalysis Microscopic Exam (01/26/2023 10:45 PM CDT) athologist [facility] UA WBC 6 (H) 0 - 2 /HPF [facility] Comment: Some reporting parameters within the Uri nalysis test have changed due to the implementation of new instrumentation in the [facility] [place], allowing greater sensitivity of measurement. Urinalysis results rep orted by the [facility] using existing instrumentation, as well as Urinalysis t esting performed manually or by backup methodology at the [facility] [place] will remain relatively unchanged. New reporting parameters and units will not be reported for all campuses. UA RBC <1 0 - 2 /HPF [facility] UA Mucous NOT SEEN Not Seen-Trace /HPF MA MD [facility] UA Bacteria NOT SEEN NOT SEEN /HPF [facility] UA Squam Epi OCC None-Occasional /HPF [facility] Specimen Anatomical Collection Method Collection Time Receive d Time (Source) Location / / Volume Laterality Urine 01/26/2023 10:45 01/26/2023 PM CDT 10:49 PM CDT Amanda Proctor MD LAB BLOOD ORDERABLES Performing Organization Address City/[facility]/ZIP Code Phon e Number [facility] Unless otherwise noted, [address] all lab tests performed by: Division of Pathology and Laboratory Medicine [facility] Michelle Tracie (ABNORMAL) Urinalysis w/Microscopic if Indicated (01/26/2023 10:45 PM CDT)Only the most recent of2 resultswithin the time period is included. Analysis Performed At Patho logist Time Signature UA Color Straw Straw-Tama [facility] UA Appear Clear Clear [facility] UA Glucose 500 (A) NEG mg/dL [facility] UA Bili NEG NEG [facility] UA Ketones NEG NEG mg/dL [facility] UA Spec Grav 1.020 1.003 - [facility] 1.035 [facility] UA Blood NEG NEG [facility] UA pH 5.5 5.0 - 9.[address] [facility] UA Protein 30 (A) NEG mg/dL [facility] UA Urobilinogen NEG NEG [facility] UA Nitrite NEG NEG [facility] UA Leuk Est NEG NEG [facility] Specimen Anatomical Collection Method Collection Time Receive d Time (Source) Location / / Volume Laterality Urine 01/26/2023 10:45 01/26/2023 PM CDT 10:49 PM CDT Amanda Proctor MD URINE ORDERABLES Performing Organization Address City/[facility]/ZIP Code Phon e Number [facility] Unless otherwise noted, [address] all lab tests performed by: Division of Pathology and Laboratory Medicine [facility] Michellelary Hodges (ABNORMAL) LDH (01/26/2023 2:44 PM CDT)Only the most recent of3 resultswithin the time period is included. P athologist Signature LDH 289 (H) 135 - 214 [facility] U/L [facility] Comment: Results greater than 1651 [...] Organization Address City/State/ZIP Code Phon e Number [facility] Unless otherwise noted, [place] [address] [place] all lab tests performed by: Division of Pathology and Laboratory Medicine [address] (ABNORMAL) Controlled Substance Monitoring Panel, Urine (01/20/2023 12:37 PM CDT) Analysis Performed At Patho logist Time Signature Urine 55.1 mg/dL [facility] Creatinine [facility] Urine Specific 1.014 [facility] Springwater [facility] Urine Ph 6.[address] [facility] Urine Oxidants Negative Cutoff: MA 200 mg/L [facility] Urine Comment Normal [facility] U Negative Cutoff: MA Barbiturates-Ma 200 ng/mL [facility] U Cocaine Negative Cutoff: MA Lvl-Luu 150 ng/mL [facility] Comment: This cocaine immunoassay targets benzoyl ecgonine the primary metabolite of cocaine. U THC-Luu See Footnote (A) Cutoff: 50 ng/mL [facility] Comment: RESULT: Presumptive Positive This [...] testing. Codeine Not Detected Cutoff: 25 ng/mL MA MD [facility] Comment: Tylenol 3 Tazouwy-3-gqrh-glucuronide Not Detected Cutoff: 100 ng/mL [facility] Comment: Metabolite of codeine Morphine Not Detected Cutoff: 25 ng/mL MA MD ALCALA JASMINE [facility] Comment: Martha Mary, MS Contin; Also a minor metabolite (10%) of codeine and can be seen in low concentra tions (<2,000 ng/mL) with poppy seed ingestion. Hvtsisyl-7-vnes-glucuronide Not Detected Cutoff: 100 ng/mL [facility] Comment: Metabolite of morphine 6-monoacetylmorphine Not Detected Cutoff: 25 ng/mL [facility] Comment: Metabolite of heroin Hydrocodone Not Detected Cutoff: 25 ng/mL [facility] Comment: Lortab, Stilwell, Vicodin; Also a very luci r metabolite of codeine and impurity (<1%) of oxycodone. Norhydrocodone Not Detected Cutoff: 25 ng/mL [facility] Comment: Metabolite of hydrocodone Dihydrocodeine Not Detected Cutoff: 25 ng/mL [facility] Comment: Metabolite of hydrocodone Hydromorphone Not Detected Cutoff: 25 ng/mL [facility] Comment: Dilaudid, Exalgo; Also a metabolite of h ydrocodone and a minor (<5%) metabolite of morphine. Xhcpusrrfmedh-7-mtgq-glucuronide Not Detected Cutoff: 100 [facility] ng/mL [facility] Comment: Metabolite of hydromorphone Oxycodone Present (A) Cutoff: 25 ng/mL [facility] Comment: Endocet, Percocet, Oxycontin Noroxycodone Present (A) Cutoff: 25 ng/mL [facility] Comment: Metabolite of oxycodone Oxymorphone Not Detected Cutoff: 25 ng/mL [facility] Comment: Numorphan, Opana; Also a metabo lite of oxycodone. Qwdkfoqoqnd-0-vpij-glucuronide Not Detected Cutoff: 100 ng/mL [facility] Comment: Metabolite of oxymorphone and/o r naloxone (nornaloxone) Noroxymorphone Present (A) Cutoff: 25 ng/mL [facility] Comment: Metabolite of oxymorphone and/o r naloxone (nornaloxone) Fentanyl Not Detected Cutoff: 2 ng/mL [facility] Comment: Actiq, Duragesic, Fentora Norfentanyl Not Detected Cutoff: 2 ng/mL [facility] Comment: Metabolite of fentanyl Meperidine Not Detected Cutoff: 25 ng/mL MA [facility] Comment: Demerol Normeperidine Not Detected Cutoff: 25 ng/mL [facility] Comment: Metabolite of meperidine Naloxone Not Detected Cutoff: 25 ng/mL MA MD [facility] Comment: Narcan Fdwdatml-3-suli-glucuronide Not Detected Cutoff: 100 ng/mL [facility] Comment: Metabolite of naloxone U Methadone Not Detected Cutoff: 25 ng/mL [facility] Comment: Dolophine EDDP Not Detected Cutoff: 25 ng/mL MA MD [facility]CALA JASMINE [facility] Comment: Metabolite of methadone Propoxyphene Not Detected Cutoff: 25 ng/mL MA MD Benjamin [facility] Comment: Darvon, Darvocet Norpropoxyphene Not Detected Cutoff: 25 ng/mL [facility] Comment: Metabolite of propoxyphene Tramadol Not Detected Cutoff: 25 ng/mL [facility] Comment: Tradol, Ultram, Ultracet O-desmethyltramadol Not Detected Cutoff: 25 ng/mL [facility] Comment: Metabolite of tramadol Tapentadol Not Detected Cutoff: 25 ng/mL MA [facility] Comment: Nucynta Mcdnakbcgt-iblj-lyrehfotaos Not Detected Cutoff: 100 ng/mL [facility] Comment: Metabolite of tapentadol Buprenorphine Not Detected Cutoff: 5 ng/mL [facility] Sourav [facility] Comment: Buprenex, Suboxone Norbuprenorphine Not Detected Cutoff: 5 ng/mL [facility] Comment: Metabolite of buprenorphine Norbuprenorphine Glucuronide Not Detected Cutoff: 20 ng/mL [facility] Comment: Metabolite of buprenorphine Opioid Interpretation See Footnote [facility] Comment: Test detected the presence of oxycodone and one of its metabolites (noroxycodone) along with no roxymorphone (metabolite of oxymorphone). Suspect use of oxymorphone and/or oxycodone within the past three d ays. Trace amounts of oxycodone can be found as an impurity in oxymorphone. ADDITIONAL INFORMATIO N This test was developed and its performa nce characteristics determined by [facility] in a manner co nsistent with CLIA requirements. This test has not been sisi ared or approved by the U.S. Food and Drug Administration. Alprazolam Urine Present (A) Cutoff: 10 ng/mL [facility] Comment: Xanax Alpha-Hydroxyalprazolam Urine Present (A) Cutoff: 10 ng/mL [facility] Comment: Metabolite of Alprazolam Alpha-Hydroxyalprazolam Present (A) Cutoff: 50 ng/mL [facility] Glucuronide Urine [facility] Comment: Metabolite of Alprazolam Chlordiazepoxide Urine Not Detected Cutoff: 10 ng/mL [facility] Comment: Librium Colbazam Urine Not Detected Cutoff: 10 ng/mL [facility] Comment: Frisium, Onfi N-Desmethylclobazam Urine Not Detected Cutoff: 200 ng/mL [facility] Comment: Metabolite of Clobazam Clonazepam Urine Not Detected Cutoff: 10 ng/mL [facility] Comment: Klonopin, Rivotril 7-Aminoclonazepam Urine Not Detected Cutoff: 10 ng/mL [facility] Comment: Metabolite of Clonazepam Diazepam Urine Not Detected Cutoff: 10 ng/mL [facility] Comment: Valium Nordiazepam Urine Not Detected Cutoff: 10 ng/mL [facility] Comment: Metabolite of Chlordiazepoxide, Diazepam, or Prazepam. Flunitrazepam Urine Not Detected Cutoff: 10 ng/mL [facility] Comment: Rohypnol 7-Aminoflunitrazepam Urine Not Detected Cutoff: 10 ng/mL [facility] Comment: Metabolite of Flunitrazepam FlUrinerazepam Urine Not Detected Cutoff: 10 ng/mL [facility] Comment: Dalmane 2-Hydroxy Ethyl Flurazepam Not Detected Cutoff: 10 ng/mL [facility] Comment: Metabolite of Flurazepam Lorazepam Urine Not Detected Cutoff: 10 ng/mL [facility] Comment: Ativan Lorazepam Glucuronide Not Detected Cutoff: 50 ng/mL [facility] Comment: Metabolite of Lorazepam Midazolam Urine Not Detected Cutoff: 10 ng/mL [facility] Comment: Versed Alpha-Hydroxy Midazolam Not Detected Cutoff: 10 ng/mL [facility] Comment: Metabolite of Midazolam Oxazepam Urine Not Detected Cutoff: 10 ng/mL [facility] Comment: Serax; Also a metabolite of Chlordiazepo xide, Diazepam, or Temazepam. Oxazepam Glucuronide Urine Not Detected Cutoff: 50 ng/mL [facility] Comment: Metabolite of Oxazepam Prazepam Urine Not Detected Cutoff: 10 ng/mL [facility] Comment: Centrax Temazepam Urine Not Detected Cutoff: 10 ng/mL [facility] Comment: Restoril; Also a metabolite of Diazepam. Temazepam Glucuronide Not Detected Cutoff: 50 ng/mL [facility] Comment: Metabolite of Temazepam Triazolam Urine Not Detected Cutoff: 10 ng/mL [facility] Comment: Halcion Alpha-Hydroxy Triazolam Not Detected Cutoff: 10 ng/mL [facility] Comment: Metabolite of Triazolam Zolpidem Urine Not Detected Cutoff: 10 ng/mL [facility] Comment: Ambien Zolpidem Fyupq-9-Wsqsegoaps Present (A) Cutoff: 10 ng/mL [facility] Acid [facility] Comment: Metabolite of Zolpidem Benzodiazepine Interp Urine See Footnote [facility] Comment: Test detected the presence of alprazolam and two of its metabolites (alpha-hydroxyalprazolam and alpha-hydroxyalprazolam glucuronide). Agarwal spect use of alprazolam within the past three days. Test detected the presence of zolpidem p rnymw-4-wjoovzvqhk acid (metabolite of zolpidem) only. Susp ect use of zolpidem within the past four days. ADDITIONAL INFORMATIO N This test was developed and its performa nce characteristics determined by [facility] in a manner co nsistent with CLIA requirements. This test has not been sisi ared or approved by the U.S. Food and Drug Administration. Methamphetamine Not Detected Cutoff: 100 ng/mL [facility] Comment: Desoxyn Amphetamine Not Detected Cutoff: 100 ng/mL [facility] Sourav [facility] Comment: Dyanavel XR, Adzenys ER, Adderall, Vyvan se; Also a metabolite of methamphetamine 3,4-Methylenedioxymethamphetamine Not Detected Cutoff: 100 [facility] (MDMA) ng/mL [facility] 3,2-Ophjkpfezbwyde-O-Ethylamphetamine Not Detected Cutoff: 100 [facility] (MDEA) ng/mL [facility] 3,4-Methylenedioxyamphetamine (MDA) Not Detected Cutoff: 100 [facility] ng/mL [facility] Comment: Also a metabolite of MDMA and/o r MDEA Ephedrine Not Detected Cutoff: 100 ng/mL [facility] Pseudoephedrine Present (A) Cutoff: 100 ng/mL [facility] Comment: Sudafed Phentermine Not Detected Cutoff: 100 ng/mL [facility] A [facility] Comment: Adipex-P, Lomaira, Qsymia Phencyclidine (PCP) Not Detected Cutoff: 20 ng/mL [facility] Methylphenidate Not Detected Cutoff: 20 ng/mL [facility] Comment: Ritalin, Concerta Ritalinic acid Not Detected Cutoff: 100 ng/mL [facility] Comment: Metabolite of methylphenidate Stimulant Interpretation See Footnote [facility] Comment: Test detected the presence of pseudoephe drine. Suspect use of pseudoephedrine within the past three days. ADDITIONAL INFORMATIO N This test was developed and its performa nce characteristics determined by [facility] in a manner co nsistent with CLIA requirements. This test has not been sisi ared or approved by the U.S. Food and Drug Administration. Test Performed by: [facility] [place] [address] [address] [employer] Helper: Yonathan Guzman M.D. Ph. D.; CLIA# [id number] Patients Current Medications NOT ANSWERED [facility] Comment: ADDITIONAL INFORMATIO N Accuracy and completeness of declared me dications on reports solely dependent on information submitted by client. Specimen Anatomical Collection Method Collection Time Receive d Time (Source) Location / / Volume Laterality Urine 01/20/2023 12:37 01/20/2023 8:31 PM CDT PM CDT Rogerio Kramer MD URINE ORDERABLES Performing Organization Address City/State/ZIP Code Phon e Number [facility] Unless otherwise noted, [place] [address] [place] all lab tests performed by: Division of Pathology and Laboratory Medicine [facility] [place] (ABNORMAL) POC Urine Drug Screen (01/20/2023 12:37 PM CDT) athologist Signature POC U Amp Negative Negative [facility] Comment: Drug Abuse Cutoff Concentration: Cutoff: 1000 ng/mL POC U Barbit Negative Negative [facility] Comment: Drug Abuse Cutoff Concentration: 300 ng/mL POC U Benzo Positive (A) Negative [facility] Comment: Drug Abuse Cutoff Concentration: Cutoff: 300 ng/ mL POC U Cocaine Negative Negative [facility] Comment: Drug Abuse Cutoff Concentration: Cutoff: 300 ng/mL POC U THC Positive (A) Negative [facility] Comment: Drug Abuse Cutoff Concentration: Cutoff: 50 ng/mL POC U Methd Negative Negative [facility] Comment: Drug Abuse Cutoff Concentration: Cutoff: 300 ng/mL POC U Mampht Negative Negative [facility] Comment: Drug Abuse Cutoff Concentration: Cutoff: 1000 ng/mL POC U Opiate Negative Negative [facility] Comment: Drug Abuse Cutoff Concentration: Cutoff: 2000 ng/mL POC U Oxycod Positive (A) Negative [facility] Comment: Drug Abuse Cutoff Concentration: Cutoff: 100 ng/mL Due to the assay cross reactivity betwee n Oxycodone and Opiates, and lower sensitivity compared to GC-MS method, the test results may be falsely positive or falsely negative. Confirmation with concurrent GC-MS results is recommended. POC U PCP Negative Negative [facility] Comment: Drug Abuse Cutoff Concentration: Cutoff: 25 ng/mL POC U TCA Negative Negative [facility] Comment: Drug Abuse Cutoff Concentration: Cutoff: 1000 ng/mL POC U PPX Negative Negative [facility] Comment: Drug Abuse Cutoff Concentration: Cutoff: [...] 1:10 Catch PM CDT PM CDT Narrative [facility] - 1:30 PM CDT The POC Urine Qualitative Drug Screen Pa augusto report is intended for use in clinical monitoring or management of patients. Un confirmed screening results must not be used for non-medical purposes such as legal o r employment-related testing. Rogerio Kramer MD POINT OF CARE TEST ORDERA BLES Performing Organization Address City/State/ZIP Code Phon e Number [facility] Unless otherwise noted, [place] [address] [place] all lab tests performed by: Division of Pathology and Laboratory Medicine [facility] [place] Tetrahydocannabinol (THC), Quantitative, Urine (01/20/2023 12:37 PM CDT) P athologist Signature U THC n/a CARLA GRIFFIN GC/MS-[facility] U THC see note CARLA GRIFFIN Interp-[facility] Comment: Carboxy-THC Confirmation, U: Carboxy-THC Interpretation: Positive ADDITIONAL INFORMATION: This report is intended for use in clini mari monitoring and management of patients. It is not intend ed for use in employment-related testing. Delta-8 Carboxy-Tetrahydrocannabinol by LC-MS/MS: 672 ng/mL Reference Value: Cutoff: 5 Delta-9 Carboxy-Tetrahydrocannabinol by LC-MS/MS: 42 ng/mL Reference Value: Cutoff: 5 PERFORMING LAB: [facility] [address] [facility] [address] Yonathan Guzman M.D. Ph.D. [id number] U [facility] n/a [facility] Specimen Anatomical Collection Method Collection Time Receive d Time (Source) Location / / Volume Laterality Urine, Clean 01/20/2023 12:37 01/27/2023 Catch PM CDT 11:34 AM CDT Rogerio Kramer MD URINE ORDERABLES Performing Organization Address City/State/ZIP Code Phon e Number [facility] Unless otherwise noted, [place], [place] [id number] [place] [address] all lab tests performed by: Division of Pathology and Laboratory Medicine [address] [place] [address] X-ray Knee 1 Or 2 Views Right [...] base MRI. I personally reviewed these image(s) [email or web address] [...] OU - Both Eyes (12/29/2022 10:51 AM DIRECTOR OF REVENUE) Specimen (Source) Anatomical Location Collection Method / Collectio n Time Received Time / Laterality Volume Narrative Al-Suzanne Heredia MD - 12/30/2022 11:50 AM DIRECTOR OF REVENUE Right Eye Threshold was 30-2. The AVF [...] OU - Both Eyes (12/29/2022 10:43 AM DIRECTOR OF REVENUE) Specimen (Source) Anatomical Location Collection Method / Collectio n Time Received Time / Laterality Volume Narrative Suzanne Mcgrath MD - 12/30/2022 11:44 AM DIRECTOR OF REVENUE Normal average thickness of peripapillary retinal nerve fiber layer . With borderline thinning temporally righ t eye Suzanne Mcgrath MD OPHTHALMOLOGY IMG ORDERABLES OCT, Retina - OU - Both Eyes (12/29/2022 10:43 AM DIRECTOR OF REVENUE) Specimen (Source) Anatomical Location Collection Method / Collectio n Time Received Time / Laterality Volume Narrative Suzanne Mcgrath MD - 12/30/2022 11:44 AM DIRECTOR OF REVENUE This result has an attachment that is no t available. Normal macular volume. No sign of serou s retinopathy Suzanne Mcgrath MD OPHTHALMOLOGY IMG ORDERABLES COVID-19 (SARS-CoV-2) PCR-Asymptomatic (12/23/2022 12:01 PM DIRECTOR OF REVENUE) [facility] Method Time Signature COVID19 (SARS Not Detected Not Detected MA CoV-2) [facility] Comment: This test is a qualitative reverse-trans criptase polymerase chain reaction (RT- PCR) developed for the [employer] Golf1210 system and intended for qualitative detection of SARS CoV-2 RNA in nasopharyngeal a nd oropharyngeal swab specimens collecte d from any individuals, including those suspected o f COVID-19 by their healthcare provider, and those without symptoms or other reasons to suspect COVID-19. A fact sheet for patients provided by the petroleum refining [employer] ( [employer]) can be rev iewed at: https://www.fda.gov/media/533177/treasure hobson. A fact sheet for Health Care providers is provided by the petroleum refining fire[employer] ([employer]) and can be reviewed at: https://www.fda.gov/media/807851/download Results must be interpreted within the c [...] were verified by the Microbiology Laboratory at [facility], CLIA Accreditation #: [id number] and CAP Accreditation #: [id number]. COVID19 SARS Source BELT BUCKLE MAKER Swab MA MD [facility] COVID19 SARS Indication Pre-Radiation Therapy [facility] Specimen (Source) Anatomical Collection Method Collection Time Re ceived Time Location / / Volume Laterality Nasopharyngeal Swab 12/23/2022 12:01 12/03 PM DIRECTOR OF REVENUE 3:41 PM DIRECTOR OF REVENUE Winter Luu MD MICROBIOLOGY - GENERAL ORDER [place]WIN Performing Organization Address City/State/ZIP Code Phon e Number [facility] Unless otherwise noted, [place] [address] [place] all lab tests performed by: Division of Pathology and Laboratory Medicine [address] [place] OCT, Optic Nerve - OU - Both Eyes (12/15/2022 10:37 AM DIRECTOR OF REVENUE) Specimen (Source) Anatomical Location Collection Method / Collectio n Time Received Time / Laterality Volume Narrative Sheridan Alvarez MD - 12/17/2022 12:25 PM DIRECTOR OF REVENUE Right Eye Average nerve fiber layer thickness cons istent with normal Left Eye Average nerve fiber layer thickness cons istent with normal Sheridan Alvarez MD OPHTHALMOLOGY IMG ORDERABLES OCT, Retina - OU - Both Eyes (12/15/2022 10:37 AM DIRECTOR OF REVENUE) Specimen (Source) Anatomical Location Collection Method / Collectio n Time Received Time / Laterality Volume Narrative Sheridan Alvarez MD - 12/17/2022 12:25 PM DIRECTOR OF REVENUE Right Eye This is the baseline exam. Findings incl ude normal observations. Left Eye This is the baseline exam. Findings incl ude normal observations. Sheridan Alvarez MD OPHTHALMOLOGY IMG ORDERABLES Fundus Photos - OU - Both Eyes (12/15/2022 10:37 AM DIRECTOR OF REVENUE) Specimen (Source) Anatomical Location Collection Method / Collectio n Time Received Time / Laterality Volume Sheridan Angulo MD - 12/17/2022 12:25 PM DIRECTOR OF REVENUE Right Eye Basline Exam. Sheridan Alvarez MD OPHTHALMOLOGY IMG ORDERABLES 3D Dental Imaging (iCAT) (12/15/2022 8:42 AM DIRECTOR OF REVENUE) Specimen (Source) Anatomical Location Collection Method / Collectio n Time Received Time / Laterality Volume Narrative Systemgenerated, Documentation - 023 8:42 AM DIRECTOR OF REVENUE This procedure requires no interpretatio n from the radiologist. Benito Tidwelln DDS IMG NON DI ORDERABLES [place] Modified Barium Swallow w Speech (12/14/2022 2:37 PM DIRECTOR OF REVENUE) Anatomical Region Laterality Modality Neck Radio Fluoroscopy Specimen (Source) Anatomical Collection Method Collection Time Re ceived Time Location / / Volume Laterality 12/14/2022 2:58 PM DIRECTOR OF REVENUE Impressions 12/14/2022 3:08 PM DIRECTOR OF REVENUE 1. Flash penetration without aspiration seen with thin liquid barium. 2. Please refer to the separately dictat ed speech pathology report for further details and recommendations. Narrative 12/14/2022 3:08 PM DIRECTOR OF REVENUE FULL RESULT: Examination: FL MODIFIED BARIUM SWALLO [...] or aspiration seen with pudding, and aircraft layout worker cker. There was no pharyngeal residue. Pharyngeal [...] barium. 2. Please refer to the separately dict ed speech pathology report for further details and recommendations. Travis Lopez MD IMG FLUOROSCOPY ORDERABLES (ABNORMAL) ABG Venous (12/11/2022 6:21 PM DIRECTOR OF REVENUE) P athologist Signature pH Raghavendra 7.40 7.32 - 7.[address] [facility] Comment: Results are corrected for a bod y temp of 37C pCO2 Raghavendra 47.6 41.0 - 51.0 mmHg MA MD LEIF Chapman [facility] pO2 Raghavendra 52 mmHg HU HU KAM [facility] HCO3 Raghavendra 29 (H) 21 - 28 mmol/L [facility] Base Excess Raghavendra 3 -2 - 3 mmol/L MA MD [facility] [place] O2 Sat Raghavendra 87 % [facility] Specimen Anatomical Collection Method Collection Time Receive d Time (Source) Location / / Volume Laterality Blood 12/11/2022 6:21 PM 3 6:29 DIRECTOR OF REVENUE PM DIRECTOR OF REVENUE Travis Lopez MD LAB BLOOD ORDERABLES Performing Organization Address City/[facility]/ZIP Code Phon e Number [facility] Unless otherwise noted, [address] all lab tests performed by: Division of Pathology and Laboratory Medicine Brian Hodges Ketone Bodies Qualitative (12/11/2022 5:19 PM DIRECTOR OF REVENUE) athologist Signature UA Ketones NEG NEG mg/dL [facility] Specimen Anatomical Collection Method Collection Time Receive d Time (Source) Location / / Volume Laterality Urine 12/11/2022 5:19 PM 3 5:24 DIRECTOR OF REVENUE PM DIRECTOR OF REVENUE Waleska Salinas BRIDGE CONSTRUCTION INSPECTOR URINE ORDERABLES Performing Organization Address City/[facility]/ZIP Code Phon e Number [facility] Unless otherwise noted, [address] all lab tests performed by: Division of Pathology and Laboratory Medicine Brian Hodges POC Critical (12/11/2022 3:34 PM DIRECTOR OF REVENUE)Only the most recent of2 resultswithin the time period is included. athologist Signature POC Critical See Note POC TELCOR Comment Comment: Test performer notified Orderin g Licensed Provider and /or designee of POC Glucose Screen critical Results.. Specimen Anatomical Collection Method Collection Time Receive d Time (Source) Location / / Volume Laterality Blood 12/11/2022 3:34 PM 3 3:34 DIRECTOR OF REVENUE PM DIRECTOR OF REVENUE Travis Lopez MD POINT OF CARE TEST ORDERABLE S Performing Organization Address City/State/ZIP Code Phon e Number POC TEL[facility] Unless otherwise noted, [place] [address] lab tests performed by: Division of Pathology and Laboratory Medicine Brian Hodges (ABNORMAL) POC VBG+Lac (12/09/2022 9:36 PM DIRECTOR OF REVENUE) athologist Signature POC VB pH 7.46 (H) [...] Clean Dev Yes POC TELCOR Performing Lab [facility] POC TELCO R Comment: [facility], [address] [place] [address], [place] [address]; Lab Direct or: Chula Jacob MD; Waived Point of Care Testing - Gabrielle Mueller MD Specimen Anatomical Collection Method Collection Time Receive d Time (Source) Location / / Volume Laterality Blood 12/09/2022 9:36 PM 3 9:36 DIRECTOR OF REVENUE PM DIRECTOR OF REVENUE Roberto Carlos Walsh MD POCT ORDERABLES - DEVICE Performing Organization Address City/State/ZIP Code Phon e Number POC TEL[facility] Unless otherwise noted, all [place] [id number] lab tests performed by: Division of Pathology and Laboratory Medicine [address] [place] [address] Ammonia Level (12/09/2022 6:01 PM DIRECTOR OF REVENUE) P athologist Signature Ammonia 18 11 - 51 MA MD BLUM [facility] Specimen Anatomical Collection Method Collection Time Receive d Time (Source) Location / / Volume Laterality Blood 12/09/2022 6:01 PM 3 6:15 DIRECTOR OF REVENUE PM DIRECTOR OF REVENUE Tammy Mike MD LAB BLOOD ORDERABLES Performing Organization Address City/State/ZIP Code Phon e Number [facility] Unless otherwise noted, [address] all lab tests performed by: Division of Pathology and Laboratory Medicine Brian LOUIS MD, MDA CHRISTINE: Mutation Analysis Precision Panel Report (12/04/2022 10:56 AM DIRECTOR OF REVENUE) Specimen (Source) Anatomical Collection Method Collection Time Re ceived Time Location / / Volume Laterality 12/04/2022 10:56 AM DIRECTOR OF REVENUE Narrative This result has an attachment that is no t available. Lorena LOUIS [facility] (MISSY GRIFFIN) Solid Tumor Genomic Assay Fusions 2018 Interpretation and Report (12/04/2022 10:56 AM DIRECTOR OF REVENUE) Specimen Anatomical Collection Method Collection Time Receive d Time (Source) Location / / Volume Laterality 12/04/2022 10:56 12/04/2022 AM DIRECTOR OF REVENUE 10:56 AM DIRECTOR OF REVENUE Narrative This result has an attachment that is no t available. Lorena [facility] (MISSY GRIFFIN) Molecular Diagnostics Specimen Collection -FFPE (12/04/2022 10:56 AM DIRECTOR OF REVENUE) [facility] Method Time Signature Molecular Yes [facility] (Received) CANCER CENTER Jael Bermudez Link [id number] [facility] Block Number BLANK [facility] (Qualitative) [facility] Outside [id number] [facility] (Qualitative) CANCER CENTER Specimen Anatomical Collection Method Collection Time Receive d Time (Source) Location / / Volume Laterality FFPE 12/04/2022 10:56 12/04/2022 AM DIRECTOR OF REVENUE 10:56 AM DIRECTOR OF REVENUE Lorena LOUIS MD NONBLOOD COLLECTIO NS Performing Organization Address City/State/ZIP Code Phon e Number [facility] Unless otherwise noted, [address] all lab tests performed by: Division of Pathology and Laboratory Medicine Brian Hodges MRI Skull Base with and without Contrast (11/30/2022 11:12 AM DIRECTOR OF REVENUE) Anatomical Region Laterality Modality Head Magnetic Resonance Specimen (Source) Anatomical Collection Method Collection Time Re ceived Time Location / / Volume Laterality 12/01/2022 9:21 AM DIRECTOR OF REVENUE Impressions 12/01/2022 1:06 PM DIRECTOR OF REVENUE 1. 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 2. Tumor likely involves the lesser wi ng of the left sphenoid bone. 3. No lateral retropharyngeal or visua lized cervical adenopathy. Narrative 12/01/2022 1:06 PM DIRECTOR OF REVENUE FULL RESULT: Examination: MRI SKULL BASE WITH [...] visuali zed cervical adenopathy. Lorena Hdez APRN [facility] MRI ORDERABLES PETCT Contrast Enhanced Initial Treatment Strategy (11/27/2022 3:57 PM DIRECTOR OF REVENUE) Anatomical Region Laterality Modality Whole Body Positron Emission To mography (PET) Specimen (Source) Anatomical Collection Method Collection Time Re ceived Time Location / / Volume Laterality 11/30/2022 8:31 AM DIRECTOR OF REVENUE Impressions 11/30/2022 8:38 AM DIRECTOR OF REVENUE Subtle activity associated with subtle asymmetric fullness in posterior left nasal pharynx is compatible with reported primary tumor. No suspicious activity to suggest regional jeremiah or distant metastases. Narrative 11/30/2022 8:38 AM DIRECTOR OF REVENUE FULL RESULT: Examination: Contrast-Enhanced FDG PET /CT, [...] MD YUN Blood Control (11/26/2022 1:07 PM DIRECTOR OF REVENUE) athologist Signature Molecular Yes [facility]CER CENTER (Received) Specimen Anatomical Collection Method Collection Time Receive d Time (Source) Location / / Volume Laterality Blood 11/26/2022 1:07 PM 9:13 DIRECTOR OF REVENUE AM DIRECTOR OF REVENUE Lorena Hdez APRN [facility] MOLECULAR DIAG IF ORDERABLES Performing Organization Address City/State/ZIP Code Phon e Number [facility] Unless otherwise noted, [place] [address] CENTER all lab tests performed by: Division of Pathology and Laboratory Medicine Jasmyne5 Michelle Hodgse (ABNORMAL) Vitamin D 25OH (11/26/2022 1:07 PM DIRECTOR OF REVENUE) athologist Signature Vitamin D 25 OH 21 (L) 30 - 100 [place] ng/mL Comment: Reference Range: Deficiency: <10 ng/mL Insufficiency: 10-29 ng/mL Sufficiency: 30-100 ng/mL Potential toxicity: >100 ng/mL Testing performed at [facility], [address] [place] [address] Specimen Anatomical Collection Method Collection Time Receive d Time (Source) Location / / Volume Laterality Blood 11/26/2022 1:07 PM 3 1:19 DIRECTOR OF REVENUE PM DIRECTOR OF REVENUE Lorena Kayla Hdez BRIDGE CONSTRUCTION INSPECTOR LAB BLOOD ORDERABLES Performing Organization Address City/State/ZIP Code Phon e Number [address] (ABNORMAL) Uric Acid (11/26/2022 1:07 PM DIRECTOR OF REVENUE) athologist Signature Uric Acid 6.5 (H) 2.4 - 5.7 [place] mg/dL Comment: Testing performed at [facility], [address] [place] [address] Specimen Anatomical Collection Method Collection Time Receive d Time (Source) Location / / Volume Laterality Blood 11/26/2022 1:07 PM 3 1:19 DIRECTOR OF REVENUE PM DIRECTOR OF REVENUE Lorena Hdez APRN LAB BLOOD ORDERABLES Performing Organization Address City/[facility]/ZIP Code Phon e Number [address] NTRK3 Fusion Material Request (11/26/2022 12:43 PM DIRECTOR OF REVENUE) Component Value Ref Test Analysis Performed At [facility] gist Range Method Time Signature Archived The test is to be 12/04/2022 [facility] Material performed on 8:01 AM DIRECTOR OF REVENUE tissue from case [id number]. The case report, slides, and blocks for [...] Volume Laterality Tissue 11/26/2022 12:43 11/26/2022 PM DIRECTOR OF REVENUE 12:43 PM DIRECTOR OF REVENUE Lorena Hdez [facility] IP AP BIOMARKERS Performing Organization Address City/[facility]/ZIP Code Phon e Number [place] [address] Michelle Hodges MD NTRK2 Fusion Material Request (11/26/2022 12:43 PM DIRECTOR OF REVENUE) Component Value Ref Test Analysis Performed At [facility] Range Method Time Signature Archived The test is to be 12/04/2022 [facility] Material performed on 8:01 AM DIRECTOR OF REVENUE tissue from case [id number]. The case report, slides, and blocks for [...] Volume Laterality Tissue 11/26/2022 12:43 11/26/2022 PM DIRECTOR OF REVENUE 12:43 PM DIRECTOR OF REVENUE Lorena Hdez [facility] IP AP BIOMARKERS Performing Organization Address [facility] Phon [place] [address] 1515 Michelle Hodges MD NTRK1 Fusion Material Request (11/26/2022 12:43 PM DIRECTOR OF REVENUE) Component Value Ref Test Analysis Performed At [facility] Range Method Time Signature Archived The test is to be 12/04/2022 [facility] Material performed on 8:01 AM DIRECTOR OF REVENUE tissue from case [id number]. The case report, slides, and blocks for [...] Volume Laterality Tissue 11/26/2022 12:43 11/26/2022 PM DIRECTOR OF REVENUE 12:43 PM DIRECTOR OF REVENUE Lorena Hdez APRN [facility] IP AP BIOMARKERS Performing Organization Address City/[facility]/ZIP Code Phon [place] [address] 1515 Michelle Hodges MD ERBB2 Mutation Analysis Material Request (11/26/2022 12:43 PM DIRECTOR OF REVENUE) Component Value Ref Test Analysis Performed At [facility] gist Range Method Time Signature Archived The test is to be 12/04/2022 [facility] Material performed on 8:01 AM DIRECTOR OF REVENUE tissue from case [id number]. The case report, slides, and blocks for the cited accession were retrieved from archives. The pathologist examined the candidate H&E slide and selected the block appropriate to the specifications of the ordered molecular analysis. Unstained slides and H&E slide were prepared and forwarded to [facility] Diagnostic Laboratory where the subject molecular test will be performed. Results will be reported separately. Pathologist Electronically 12/04/2022 [facility] Signature signed by Larissa March 8:01 AM DIRECTOR OF REVENUE MD [place] on 12/04/22 8:01 AM Specimen Anatomical Collection Method Collection Time Receive d Time (Source) Location / / Volume Laterality Tissue 11/26/2022 12:43 11/26/2022 PM DIRECTOR OF REVENUE 12:43 PM DIRECTOR OF REVENUE Lorena Hdez APRN [facility] IP AP BIOMARKERS Performing Organization Address City/[facility] Phon e Number [facility] [place] [address] 1515 Michelle Hodges MD ALK Mutation Analysis Material Request (11/26/2022 12:43 PM DIRECTOR OF REVENUE) Component Value Ref Test Analysis Performed At [facility] gist Range Method Time Signature Archived The test is to be 12/04/2022 [facility] Material performed on 8:02 AM DIRECTOR OF REVENUE tissue from case [id number]. The case report, slides, and blocks for [...] Volume Laterality Tissue 11/26/2022 12:43 11/26/2022 PM DIRECTOR OF REVENUE 12:43 PM DIRECTOR OF REVENUE Lorena Hdez APRN [facility] IP AP BIOMARKERS Performing Organization Address City/[facility] Phon [place] [address] 1515 Michelle Hodges MD MTOR Mutation Material Request (11/26/2022 12:43 PM DIRECTOR OF REVENUE) Component Value Ref Test Analysis Performed At [facility] Method Time Signature Archived The test is to be 12/04/2022 [facility] Material performed on 8:01 AM DIRECTOR OF REVENUE tissue from case [id number]. The case report, slides, and blocks for [...] Volume Laterality Tissue 11/26/2022 12:43 11/26/2022 PM DIRECTOR OF REVENUE 12:43 PM DIRECTOR OF REVENUE Lorena Hdez APRN [facility] IP AP BIOMARKERS Performing Organization Address City/[facility] Phon [place] [address] 1515 Michelle Hodges MD PTEN Mutation Material Request (11/26/2022 12:43 PM DIRECTOR OF REVENUE) Component Value Ref Test Analysis Performed At [facility] Method Time Signature Archived The test is to be 12/04/2022 [facility] Material performed on 8:02 AM DIRECTOR OF REVENUE tissue from case [id number]. The case report, slides, and blocks for [...] Volume Laterality Tissue 11/26/2022 12:43 11/26/2022 PM DIRECTOR OF REVENUE 12:43 PM DIRECTOR OF REVENUE Lorena Hdez APRN [facility] IP AP BIOMARKERS Performing Organization Address City/State/ZIP Code Phon [place] [address] 1513 Michelle Hodges MD EGFR Mutation Material Request (11/26/2022 12:43 PM DIRECTOR OF REVENUE) Component Value Ref Test Analysis Performed At [facility] gist Range Method Time Signature Archived The test is to be 12/04/2022 [facility] Material performed on 8:02 AM DIRECTOR OF REVENUE tissue from case [id number]. The case report, slides, and blocks for [...] Volume Laterality Tissue 11/26/2022 12:43 11/26/2022 PM DIRECTOR OF REVENUE 12:43 PM DIRECTOR OF REVENUE Lorena Hdez APRN [facility] IP AP BIOMARKERS Performing Organization Address City/State/ZIP Code Phon e Number [facility] [place] [phone] Michelle Hodges IHC PD-L1 Material Request (11/26/2022 12:43 PM DIRECTOR OF REVENUE) Specimen Anatomical Collection Method Collection Time Receive d Time (Source) Location / / Volume Laterality Tissue 11/26/2022 12:43 11/26/2022 PM DIRECTOR OF REVENUE 12:43 PM DIRECTOR OF REVENUE Lorena Riojasjazmin Hdez APRN [facility] IP AP BIOMARKERS Performing Organization Address City/State/ZIP Code Phon [place] [address] [address] [place] IHC HER2/arcenio Material Request (11/26/2022 12:43 PM DIRECTOR OF REVENUE) Specimen Anatomical Collection Method Collection Time Receive d Time (Source) Location / / Volume Laterality Tissue 11/26/2022 12:43 11/26/2022 PM DIRECTOR OF REVENUE 12:43 PM DIRECTOR OF REVENUE Lorena Kayla Hdez APRN [facility] IP AP BIOMARKERS Performing Organization Address City/State/ZIP Code Phon [place] [address] [address] [place] Testosterone Level (11/17/2022 12:11 PM DIRECTOR OF REVENUE) athologist [facility] Testoster Tot <3 3 - 41 [place] ng/dL Comment: Reference Ranges: Male: Age 20 - 49 249 - 836 Age >=50 1 93 - 740 Female: Age 20 - 49 8 - 48 Age >=50 3 - 41 Testing performed at [facility] [place], [address] [place] [id number] Specimen Anatomical Collection Method Collection Time Receive d Time (Source) Location / / Volume Laterality Blood 11/17/2022 12:11 11/17/2022 PM DIRECTOR OF REVENUE 12:12 PM DIRECTOR OF REVENUE Red Berman BRIDGE CONSTRUCTION INSPECTOR LAB BLOOD ORDERABLES Performing Organization Address City/[facility]/ZIP Code Phon e Number [place], [place] [id number] [place] [address] Pathology Outside Interpretation (10/16/2022) Component Value Ref Test Analysis Performed Pathologis t Range Method Time At [facility] Materials Accession#, Stained, Block, Unstained Collected Received 11/27/2022 [facility] Received A. [id number], 7 SS, 1 BLOCKS, 0 USS 10/16/2022 11/24/2022 5:08 PM DIRECTOR OF REVENUE Addendum 1 At the request of the donell machado physician the following studies were performed and interpreted at [facility]. 11/27/2022 [facility] Addendum 5:08 PM electronic ally The tumor cells are negative for Her2 (0%) by immunohi stochemical analysis. 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 MD Gerald on 11/27/2022 at PD-L1 (Clone 22C3, [employer]) Combine d Positive Score (CPS): is less than 1 5:08 PM Assay Information: This assa y is manufactured by [employer] and uses a monoclonal anti-PD-L1, clone 22C3. It is performed on formalin-fixed paraffin- embedded tissue using an [employer] autostainer a nd polymer based detection k it, as specified by the petroleum refining firer. It is approved for use as a asthma educator diagnostic for specific therapies on certain tumor [...] is defined as CPS 100. Diagnosis Outside ([id number], 7 SS, 1 BLOCKS, 0 USS, colle cted on 10/16/2022): 11/27/2022 [employer] [facility] Electronically 5:08 PM signed by Nasopharynx, biopsy: DIRECTOR OF REVENUE Ashleigh ADENOID CYSTIC CARCINOMA, CRIBRIFORM TYPE see comment MD Gerald on 11/26/2022 at EARL/SALEEM 9:43 AM Comment Submitted 11/27/2022 [employer] [facility] immunohistochemical 5:08 PM stains performed by DIRECTOR OF REVENUE referring institution show that CK7 highlights the epithelial cells, and p63 and p40 highlights the myoepithelial cells. The morphology and immunophenotype is supportive of this classification. Biomarker Tumor block: 11/27/2022 [employer] [facility] Block(s) [id number] 5:08 PM DIRECTOR OF REVENUE Disclaimer "Some tests reported 11/27/2022 [employer] [facility] here may have been 5:08 PM developed and DIRECTOR OF REVENUE performance characteristics determined by [facility] Pathology and Laboratory Medicine. These tests have not been specifically cleared or approved by the U.S. Food and Drug Administration. If applicable, controls were reviewed and showed appropriate reactivity." Specimen (Source) Anatomical Collection Method Collection Time Re ceived Time Location / / Volume Laterality Tissue 10/16/2022 11/24/2022 3:02 PM DIRECTOR OF REVENUE Alexa Alvarez MD LAB PATHOLOGY ORDERABLES Performing Organization Address City/State/ZIP Code Phon e Number [facility] [place] [address] [address] [place] after 07/01/2022 Insurance Payer Benefit Plan / Subscriber ID Effective Phone Address T ype Group Dates MEDICARE MEDICARE PART A [id number] 2010-Pres [phone] [place] Medicare AND B ent 782 SOL[address] [address] [place] [id number] [place] [id number] 2022-Pres [address] Medicaid TRADITIONAL TRADITIONAL ent [id number] [place] [address] Advance Directives Code Status Date Activated Date Inactivated Comments Full Code 02/06/2023 1:33 AM 02/16/2023 6:41 PM Code Status Date Activated Date Inactivated Comments Full Code 01/26/2023 5:50 PM 02/01/2023 8:34 PM Full Code 01/11/2023 10:19 PM 01/18/2023 9:39 PM Full Code 12/09/2022 10:42 PM 12/15/2022 9:30 PM Care Teams Treasury Specialist Relationship Specialty Start Date End Date Bina Obando PCP - External Otolaryngology 11/12/22 MD Joana Referring [address] [place] [phone] Kenya Agarwal MD PCP - General Head and Neck Surgery 11/12/22 [address] [place] [address] Trent Irving MD Family Practice 11/26/[address] [place] [address] Randall Sheriff [facility] 11/26/22 MD Maciej [address] [place], [place] [phone] Vignesh Waddell, Pulmonary Medicine 11/26/22 [address] [place], [place] [phone] Naa Miller, Cardiology 11/26/[address] [phone] Tapan Harper, Gastroenterology 11/26/22 [address] [place], [place] [address] Rafael Rosas, Ophthalmology 11/26/22 [address] [place] [phone] Suzanne Mcgrath MD Consulting Physician Ophthalmology 12/29/[address] [place] [id number]
--- NOTE | 2023-07-01 19:50 | RAD REPORT ---
EXAM DESCRIPTION: RADChest Single View07/01/2023 7:40 pm CLINICAL HISTORY: SOB COMPARISON: Chest Single View dated 06/10/2023; Chest Single View dated 05/18/2023; Chest Single View dated 03/23/2023; Chest Single View dated 03/19/2023 TECHNIQUE: Portable AP view of the chest. FINDINGS: No new focal airspace opacities. Persistent hazy left basilar opacification, which could r eflect atelectasis or persistent pneumonia. No pneumothorax or effusion. The cardiomediastinal conto urs are unremarkable. IMPRESSION: Persistent left basilar hazy opacification as above.
--- NOTE | 2023-07-01 19:57 | RAD REPORT ---
EXAM DESCRIPTION: CT - Abdomen Pelvis W Contrast - 07/01/2023 7:28 pm CLINICAL HISTORY: ABD PAIN COMPARISON: Abdomen Pelvis W Contrast dated 05/18/2023; Abdomen Pelvis W Contrast dated 04/13/2023 ; Abdomen Pelvis W Contrast dated 03/20/2023; Abdomen Pelvis W Contrast dated 11/16/2022 TECHNIQUE: Thin cut axial CT imaging of the abdomen and pelvis was performed following intravenous a dministration of 100 mL Isovue 300. Multiplanar reformats were generated and reviewed. All CT scans are performed using dose optimization technique as appropriate and may include automated exposure control or mA/KV adjustment according to patient size. FINDINGS: No suspicious findings in the lung bases. The liver, spleen, and pancreas show no suspicious findings. Gallbladder was surgically removed. Sequelae of gastric bypass surgery. Symmetric renal function is seen with no hydronephrosis or suspicious renal mass. No dilated bowel loops or bowel wall thickening. No free air, free fluid or inflammatory stranding. N o hernia, mass or bulky lymphadenopathy. 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 The urinary bladder is without significant finding. No suspicious bony findings. IMPRESSION: No acute intra-abdominal process. Stable findings as above.
--- OUTSIDE RECORDS SUMMARY | 2023-07-01 20:33 | XMS REPORT | Continuity of Care Document ---
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 d2) 00 QWEEKLY, Medical (CALCIFEROL First dose Br anch ) capsule on Wed 50,000 06/18/23 at Units 1000, Until Discontinu ed, Routine spironolact 2022-0 Yes 25mg 25 mg, Univ ers one 8 Oral, ity of (ALDACTONE) 14:00: DAILY, [place] tablet 25 00 First dose Medi mari mg on Wed Branch 06/18/23 at 0900, Until Discontinu ed, Routine lisinopriL 2022-0 Yes 40mg 40 mg, Unive rs (PRINIVIL,Z 06-18 Oral, ity of ESTRIL) 14:00: DAILY, [place] tablet 40 00 First dose Medi mari mg on Wed Branch 06/18/23 at 0900, Until Discontinu ed, Routine hydroCHLORO 3-0 Yes 12.5mg 12.5 mg, Univers thiazide 06-18 Oral, ity of (ESIDRIX) 14:00: DAILY, [place] capsule 00 First dose Medica l 12.5 mg on Wed Branch 06/18/23 at 0900, Until Discontinu ed, Routine fluticasone 3-0 Yes 2{spray 2 [place], Univers propionate 06-18 } Nasal, ity of 50 14:00: DAILY, [place] mcg/actuati 00 First dose Me dical on nasal on Fri Branch spray 2 06/18/23 at [place] 0900, Until Discontinu ed, Routine amLODIPine 3-0 Yes 5mg 5 mg, Univer s (NORVASC) 818 Oral, ity of tablet 5 mg 14:00: DAILY, [place] 00 First dose Medical on Wed Branch 06/18/23 at 0900, Until Discontinu ed, Routine insulin 2022-0 Yes 140U 140 Units, [facility] ers glargine 8-18 Subcutaneo ity o f (LANTUS 02:00: us, QHS, [place] U-100) 00 First dose Medical injection on [facility] Branch 140 Units 06/17/23 at 2100, Until Discontinu ed, Routine atorvastati 2022-0 Yes 40mg 40 mg, [facility] ers n (LIPITOR) 8-18 Oral, QHS, it y of tablet 40 02:00: First dose [place] mg 00 on [facility] 06/17/23 at Branch 2100, Until Discontinu ed, Routine zolpidem 2022-0 Yes 10mg 10 mg, Univers (AMBIEN) 8-18 Oral, QHS, ity o f tablet 10 02:00: First dose [place] mg 00 on [facility] 06/17/23 at Branch 2100, Until Discontinu ed, Routine mirtazapine 0 Yes 15mg 15 mg, [facility] ers (REMERON) 8-18 Oral, QHS, ity of tablet 15 02:00: First dose [place] mg 00 on [facility] 06/17/23 at Branch 2100, Until Discontinu ed, Routine ondansetron 2022-0 Yes 4mg 4 mg, Slow Univers (ZOFRAN 818 IV Push, ity of (PF)) 01:58: Q6HPRN, [place] injection 4 44 Starting Medi mari mg on [facility] Branch 06/17/23 at 2057, Until Discontinu ed, Routine, Nausea and Vomiting (N/V) HYDROcodone 2022-0 Yes 1{tbl} 1 tablet, [facility] -acetaminop 8-18 Oral, ity of hen (NORCO) 01:58: Q6HPRN, [place]ie as 10-325 mg 13 Starting Medica l tablet 1 on [facility] tablet 06/17/23 at 2057, Until Discontinu ed, Routine, Pain (scale 7-10) budesonide- 2022-0 Yes 2{puff} 2 Puff, Univers formoteroL 8-18 Inhalation ity of (SYMBICORT) 01:00: , BID, [place] 160-4.5 00 First dose Medica l mcg/actuati on [facility] on inhaler 06/17/23 at 2 Puff 2000, Until Discontinu ed, Routine pantoprazol 2023-0 Yes 40mg 40 mg, Univ ers e 06-18 Oral, BID, ity of (PROTONIX) 01:00: First dose [place] EC tablet 00 on [facility] 40 mg 06/17/23 at [place] 1999, Until Discontinu ed, Routine metoprolol 2023-0 Yes 100mg 100 mg, Uni vers tartrate 06-18 Oral, BID, ity o f (LOPRESSOR) 01:00: First dose [place] tablet 100 00 on [facility] Medical mg 06/17/23 at [place] 1999, Until Discontinu ed, Routine gabapentin 3-0 Yes 600mg 600 mg, Uni vers (NEURONTIN) 06-18 Oral, TID, it y of tablet 600 01:00: First dose [place] mg 00 on [facility] 06/17/23 at [place] 1999, Until Discontinu ed, Routine allopurinoL 3-0 Yes 300mg 300 mg, Un ally (ZYLOPRIM) 06-18 Oral, BID, ity of tablet 300 01:00: First dose [place] mg 00 on [facility] 06/17/23 at [place] 1999, Until Discontinu ed, Routine hydrALAZINE 3-0 2023- No 100mg 100 mg, U nivers (APRESOLINE 06-18 Oral, TID, i ty of ) tablet 01:00: 03:18 First dose [place] 100 mg 00 :01 on [facility] 06/17/23 at [place] 1999, Until Discontinu ed, Routine cloNIDine 2023-0 2023- No .1mg 0.1 mg, Univ ers (CATAPRES) 06-18 Oral, TID, it y of tablet 0.1 01:00: 03:18 First dose [place] mg 00 :01 on [facility] 06/17/23 at [place] 1999, Until Discontinu ed, Routine Sliding 2023-0 Yes Subcutaneo Univ ers Scale 06-17 us, TID ity of Insulin - 22:00: MEALS+HS, [place] as Lispro 00 First dose Medical (HumaLOG) on [facility] 06/17/23 at 1700, Until Discontinu ed, Routine enoxaparin 3-0 Yes 40mg 40 mg, Unive rs (LOVENOX) 06-17 Subcutaneo ity of injection 22:00: us, DAILY, [place] 40 mg 00 First dose Medical on [place] Branch 06/17/23 at 1700, Until Discontinu ed, Routine insulin No 20U 20 Units, Univ ers lispro 06-1718 Subcutaneo ity of (human) 22:00: 19:49 us, TID [place] (HumaLOG 00 :19 MEALS, Medical U-100) First dose Branch injection on [place] 20 Units 06/17/23 at 1700, Until Discontinu ed, Routine dextrose Yes 250mL 250 mL, IV Un ally 10% (D10W) 06-17 Infusion, ity of bolus 21:26: PRN - SEE [place] infusion 31 INSTRUCTIO Medic al 250 mL NS, Branch Administer over 60 Minutes, Other, If blood glucose is < or = 70 mg/dL and patient is unable to swallow or has mental status changes, Starting on [place] 06/17/23 at 1626
If blood glucose is < or = 70 mg/dL and patient is unable to swallow or has mental status changes (Give glucagon order if patient needs fluid restrictio n): IF IV access available: Dextrose 10%. 1. 125 mL (? bag) of D10W IV infusion - equivalent to 12.5 g dextrose 2. Blood glucose - draw blood glucose 15 minutes after D10W Administra tion. 3. If blood glucose is < 80 mg/dL, repeat.
glucagon Yes 1mg 1 mg, Univers (GLUCAGEN 06-17 Intramuscu ity of DIAGNOSTIC 21:26: lar, PRN, [place] KIT) 29 Starting Medical injection 1 on [place] Branch mg 06/17/23 at 1626, Until Discontinu ed, ELOISA, Blood Glucose < or = 70 mg/dL and patient is NPO, unable to swallow or has mental changes. ALPRAZolam Yes 2mg 2 mg, Univer s (XANAX) 06-17 Oral, ity of tablet 2 mg 21:25: TIDPJCARLOS, [place] 00 Starting Medical on [place] Branch 8/17/23 at 1625, Until Discontinu ed, Routine, Anxiety labetaloL 2022-0 Yes 10mg 10 mg, Univer s (NORMODYNE) 06-17 Slow IV ity o f injection 21:23: Push, [place] 10 mg 02 [id number], 5 Medical doses, Branch Starting on [place] 06/17/23 at 1623, Until Discontinu ed, Routine, Hypertensi on SBP> 220 albuterol 2022-0 Yes 2.5mg 2.5 mg, Univ ers (PROVENTIL) 06-17 Inhalation it y of 2.5 mg /3 21:00: , QID, [place] mL (0.083 00 First dose Medi mari %) on [facility] Branch nebulizer 06/17/23 at solution 1600, 2.5 mg Until Discontinu ed, Routine ipratropium 2022-0 Yes .5mg 0.5 mg, Uni vers (ATROVENT) 06-17 Inhalation ity of 0.02 % 21:00: , QID, [place] nebulizer 00 First dose Medi mari solution on [facility] Branch 0.5 mg 06/17/23 at 1600, Until Discontinu ed, Routine iopamidol 2022-0 2022- No [id number] 100mL 100 mL, Univers (ISOVUE 06-17 Intravenou ity o f 370-500 mL) 21:00: 20:26 s, ONCE, 1 [place] injection 00 :00 dose, On Medica l 100 mL [facility] 06/17/23 at 1600, Routine NaCl 0.9% 2022-0 Yes 5mL 5 mL, Slow Un ally (NS) 06-17 IV Push, ity of injection 5 19:18: PRN - SEE [place] mL 14 INSTRUCTIO Medical NS, Branch Starting on [place] 06/17/23 at 1418, Until Discontinu ed, 10 mL LISINOPRIL 2022-0 Yes [id number] TAKE 1/2 Univers 40 mg 8-07 TABLET BY ity of tablet 00:00: MOUTH 00 TWICE Medical DAILY Branch LISINOPRIL 2022-0 Yes [id number] TAKE 1/2 Univers 40 mg 8-07 TABLET BY ity of tablet 00:00: MOUTH TWICE Medical DAILY Branch HYDROcodone 2022-0 Yes [id number] 1{tbl} Take 1 Un ally -acetaminop 8-07 tablet by ity of hen 10-325 00:00: mouth [place] mg tablet 00 every 6 Medical (six) Branch hours as needed for Pain (scale 4-6). Indication s: chronic pain LISINOPRIL 2022-0 Yes [id number] TAKE 1/2 Univers 40 mg 8-07 TABLET BY ity of tablet 00:00: MOUTH [place] 00 TWICE Medical DAILY Branch HYDROcodone 2022-0 Yes [id number] 1{tbl} Take 1 Un ally -acetaminop 8-07 tablet by ity of hen 10-325 00:00: mouth [place] mg tablet 00 every 6 Medical (six) Branch hours as needed for Pain (scale 4-6). Indication s: chronic pain LISINOPRIL 2022-0 Yes [id number] TAKE 1/2 Univers 40 mg 8-07 TABLET BY ity of tablet 00:00: MOUTH [place] 00 TWICE Medical DAILY Branch HYDROcodone 2022-0 Yes [id number] 1{tbl} Take 1 Un ally -acetaminop 8-07 tablet by ity of hen 10-325 00:00: mouth [place] mg tablet 00 every 6 Medical (six) Branch hours as needed for Pain (scale 4-6). Indication s: chronic pain iopamidol 2022- No [id number] 75mL 75 mL, U nivers (ISOVUE 05-27 Intravenou ity o f 370-500 mL) 04:45: 03:54 s, ONCE, 1 [place] injection 00 :00 dose, On Medica l 75 mL Wed Branch 05/26/23 at 2345, Routine aspirin 2022- No 324mg 324 mg, Unive rs chewable 05-27 Oral, ity of tablet 324 04:15: 03:32 ONCE, 1 [place] mg 00 :00 dose, On Medical Wed Branch 05/26/23 at 2315, Routine ondansetron 2022-2022- No 4mg 4 mg, Slow Univers (ZOFRAN 05-27 IV Push, ity of (PF)) 03:45: 03:33 ONCE, 1 [place] injection 4 00 :00 dose, On Medi mari mg Wed Branch 05/26/23 at 2245, ELOISA morpHINE (4 2022- No 4mg 4 mg, Slow Univers mg/mL) 05-27 IV Push, ity of injection 4 03:30: 03:33 ONCE, 1 [place] mg 00 :00 dose, On [facility] Branch 05/26/23 at 2230, STAT hydrALAZINE 3-0 Yes [id number] 100mg Take 1 Univers 100 mg 7-27 tablet by ity of tablet 00:00: mouth in [address] and 1 tablet at noon and 1 tablet in the evening. hydrALAZINE 3-0 Yes [id number] 100mg Take 1 [facility] 100 mg 7-27 tablet by ity of tablet 00:00: mouth in [address] and 1 tablet at noon and 1 tablet in the evening. hydrALAZINE 3-0 Yes [id number] 100mg Take 1 [facility] 100 mg 7-27 tablet by ity of tablet 00:00: mouth in [address] and 1 tablet at noon and 1 tablet in the evening. hydrALAZINE 3-0 Yes [id number] 100mg Take 1 [facility] 100 mg 7-27 tablet by ity of tablet 00:00: mouth in [address] and 1 tablet at noon and 1 tablet in the evening. hydrALAZINE 3-0 Yes [id number] 100mg Take 1 [facility] 100 mg 7-27 tablet by ity of tablet 00:00: mouth in [address] and 1 tablet at noon and 1 tablet in the evening. hydrALAZINE 3-0 Yes [id number] 100mg Take 1 Univers 100 mg 7-27 tablet by ity of tablet 00:00: mouth in [address] and 1 tablet at noon and 1 tablet in the evening. lisinopril 2022-0 Yes 40mg Take 1 Unive rs (PRINIVIL,Z 7-26 tablet (40 it y of ESTRIL) 40 16:36: mg) by [place] mg tablet 07 mouth MD every [place] morning. [facility] [place] allopurinol 2022-0 Yes prevention 300mg Take 1 Univers (ZYLOPRIM) 7-26 of acute tablet ity of 300 mg 16:36: gout attack (300 mg) [place] tablet 07 by mouth MD twice [place] daily. [facility] [place] colchicine 2022-0 Yes prevention .6mg Take 1 Univers (COLCRYS) 7- of acute tablet ity of 0.6 mg 16:36: gout attack (0.6 mg) [place] tablet 07 by mouth MD daily. [facility] dicyclomine Yes 10mg Take 1 Univ ers (BENTYL) 10 7-26 capsule ity o f mg capsule 16:36: (10 mg) by [place] 07 mouth 3 MD (three) [place] times a n day. [facility] lisinopril Yes 40mg Take 1 Unive rs (PRINIVIL,Z 7- tablet (40 it y of ESTRIL) 40 16:36: mg) by [place] mg tablet 07 mouth MD every [place] morning. n [facility] [place] allopurinol Yes prevention 300mg Take 1 Univers (ZYLOPRIM) 7 of acute tablet ity of 300 mg 16:36: gout attack (300 mg) [place] tablet 07 by mouth MD twice Anderso daily. [facility] [place] colchicine Yes prevention .6mg Take 1 Univers (COLCRYS) 05-26 of acute tablet ity of 0.6 mg 16:36: gout attack (0.6 mg) [place] tablet 07 by mouth MD daily. [facility] dicyclomine Yes 10mg Take 1 Univ ers (BENTYL) 10 7- capsule ity o f mg capsule 16:36: (10 mg) by [place] 07 mouth 3 MD (three) Anders[place] times a n day. [facility] metFORMIN Yes Type 2 1000mg Take 1 Un ally (GLUCOPHAGE 7-26 diabetes tablet it y of ) 1000 mg 00:00: mellitus (1,000 mg) [place] tablet 00 with by mouth 2 MD alicea (two) Anderso ia times a n day with Cancer meals. [place] metFORMIN Yes Type 2 1000mg Take 1 Un ally (GLUCOPHAGE 7-26 diabetes tablet it y of ) 1000 mg 00:00: mellitus (1,000 mg) [place] tablet 00 with by mouth 2 MD alicea (two) [place] ia times a n day with Cancer meals. [place] semaglutide Yes Type 2 1mg Inject 1 Univers (Ozempic) 1 - diabetes mg under ity of mg/dose (4 00:00: mellitus the skin [place] mg/3 mL) 00 with every 7 MD ricky hyperglycem days. [facility] semaglutide 2022- No Type 2 1mg Inject 1 Univers (Ozempic) 1 05-26 08-22 diabetes mg under ity of mg/dose (4 00:00: 00:00 mellitus the skin [place] mg/3 mL) 00 :00 with every 7 MD ricky hyperglycem days. [facility] hydrocortis Yes Abnormal Take 2 Univers one [...] 4-6). Indication s: chronic pain fluticasone Yes [id number] 2{spray Use 2 Univers propionate 7-05 } [...] (scale 4-6). Indication s: chronic pain fluticasone 2022-0 Yes [id number] 2{spray Use 2 [facility] propionate 7-05 } Sprays in ity of 50 00:00: each [place] mcg/actuati 00 nostril in Me dical on nasal the Branch spray morning. HYDROcodone 2022-0 Yes [id number] 1{tbl} Take 1 Un ally -acetaminop 7-05 tablet by ity of hen 10-325 00:00: mouth [place] mg tablet 00 every 6 Medical (six) Branch hours as needed for Pain (scale 4-6). Indication s: chronic pain fluticasone 2022- Yes [id number] 2{spray Use 2 Univers propionate 7-05 } Sprays in ity of 50 00:00: each [place] mcg/actuati 00 nostril in Me dical on nasal the Branch spray morning. HYDROcodone 2022-0 Yes [id number] 1{tbl} Take 1 Un ally -acetaminop 7-05 tablet by ity of hen 10-325 00:00: mouth [place] mg tablet 00 every 6 Medical (six) Branch hours as needed for Pain (scale 4-6). Indication s: chronic pain fluticasone 2022-0 Yes [id number] 2{spray Use 2 [facility] propionate 7-05 } Sprays in ity of 50 00:00: each [place] mcg/actuati 00 nostril in Me dical on nasal the Branch spray morning. HYDROcodone 2022-0 Yes [id number] 1{tbl} Take 1 Un ally -acetaminop 7-05 tablet by ity of hen 10-325 00:00: mouth [place] mg tablet 00 every 6 Medical (six) Branch hours as needed for Pain (scale 4-6). Indication s: chronic pain fluticasone 2022-0 Yes [id number] 2{spray Use 2 [facility] propionate 7-05 } Sprays in ity of 50 00:00: each [place] mcg/actuati 00 nostril in Me dical on nasal the Branch spray morning. fluticasone 0 Yes [id number] 2{spray Use 2 [facility] propionate 7-05 } Sprays in ity of 50 00:00: each [place] mcg/actuati 00 nostril in Me dical on nasal the Branch spray morning. fluticasone 0 Yes [id number] 2{spray Use 2 [facility] propionate 7-05 } Sprays in ity of 50 00:00: each [place] mcg/actuati 00 nostril in Me dical on nasal the Branch spray morning. fluticasone 0 Yes [id number] 2{spray Use 2 [facility] propionate 7-05 } [...] tablet 03 mouth MD every [place] morning. n [facility] allopurinol Yes prevention 300mg Take 1 Univers (ZYLOPRIM) 6-22 of acute tablet ity of 300 mg 15:48: gout attack (300 mg) [place] tablet 03 by mouth MD twice [place] daily. n [facility] colchicine Yes prevention .6mg Take 1 Univers (COLCRYS) 6-22 of acute tablet ity of 0.6 mg 15:48: gout attack (0.6 mg) [place] tablet 03 by mouth [facility]. [facility] dicyclomine Yes 10mg Take 1 [...] tablet 03 mouth MD every [place] morning. n [facility] allopurinol Yes prevention 300mg Take 1 Univers (ZYLOPRIM) 6-22 of acute tablet ity of 300 mg 15:48: gout attack (300 mg) [place] tablet 03 by mouth MD twice [place] daily. n [facility] colchicine Yes prevention .6mg Take 1 Univers (COLCRYS) 6-22 of acute tablet ity of 0.6 mg 15:48: gout attack (0.6 mg) [place] tablet 03 by mouth MD daily. [facility] Center dicyclomine Yes 10mg Take [...] tablet 03 mouth MD every [place] morning. [facility] allopurinol Yes prevention 300mg Take 1 Univers (ZYLOPRIM) 6-22 of acute tablet ity of 300 mg 15:48: gout attack (300 mg) [place] tablet 03 by mouth MD twice Anderso daily. [facility] [place] colchicine Yes prevention .6mg Take 1 Univers (COLCRYS) 6-22 of acute tablet ity of 0.6 mg 15:48: gout attack (0.6 mg) [place] tablet 03 by mouth MD daily. [facility] Center dicyclomine Yes 10mg Take [...] mouth MD twice Anderso daily. n [facility] [place] colchicine Yes prevention .6mg Take 1 Univers (COLCRYS) 6-13 of acute tablet ity of 0.6 mg 10:16: gout attack (0.6 mg) [place] tablet 54 by mouth MD daily. Anderso n [facility] dicyclomine Yes 10mg Take 1 Univ [...] EVERY 8 [place] HOURS [facility] gabapentin Yes Chronic TAKE 1 Un ally (NEURONTIN) 6-09 pain TABLET(800 it y of 800 mg 00:00: MG) BY [place] tablet 00 MOUTH MD EVERY 8 [place] HOURS [facility] gabapentin Yes Chronic TAKE 1 Un ally (NEURONTIN) 6-09 pain TABLET(800 it y of 800 mg 00:00: MG) BY [place] tablet 00 MOUTH MD EVERY 8 [place] HOURS [facility] gabapentin Yes Chronic TAKE 1 Un ally (NEURONTIN) 6-09 pain TABLET(800 it y of 800 mg 00:00: MG) BY [place] tablet 00 MOUTH MD EVERY 8 [place] HOURS [facility] Center gabapentin Yes Chronic TAKE 1 Un ally (NEURONTIN) 6-09 pain TABLET(800 it y of 800 mg 00:00: MG) BY [place] tablet 00 MOUTH MD EVERY 8 [place] HOURS [facility] gabapentin Yes Chronic TAKE 1 Un ally (NEURONTIN) 6-09 pain TABLET(800 it y of 800 mg 00:00: MG) BY [place] tablet 00 MOUTH MD EVERY 8 [place] HOURS [facility] fluticasone Yes [id number] 2{spray Use 2 Univers propionate 6-08 } Sprays in ity of 50 00:00: each [place] mcg/actuati 00 nostril in Me dical on nasal the Branch spray morning. fluticasone Yes [id number] 2{spray Use 2 [facility] propionate 6-08 } Sprays in ity of 50 00:00: each [place] mcg/actuati 00 nostril in Me dical on nasal the Branch spray morning. fluticasone 2022- No [id number] 2{spray Use 2 Univers propionate 6-08 07-05 [...] days. Indication s: chronic pain apixaban Yes shelter 5mg Take 1 Un ally (Eliquis) 5 5-31 use of tablet (5 i ty of mg tablet 00:00: anticoagula mg) by [place] [id number] nt mouth every 12 Anderso (twelve) n hours. [facility] Center apixaban Yes ladies' hat trimmer 5mg Take 1 Un ally (Eliquis) 5 5-31 use of tablet (5 i ty of mg tablet 00:00: anticoagula mg) by [place] [address] nt mouth every 12 [place] (twelve) n hours. [facility] Center apixaban Yes ladies' hat trimmer 5mg Take 1 Un ally (Eliquis) 5 5-31 use of tablet (5 i ty of mg tablet 00:00: anticoagula mg) by [place] 00 nt mouth every 12 [place] (twelve) n hours. [facility] apixaban Yes shelter 5mg Take 1 Un ally (Eliquis) 5 5-31 use of tablet (5 i ty of mg tablet 00:00: anticoagula mg) by [place] 00 nt mouth every 12 [place] (twelve) n hours. [facility] Center apixaban Yes shelter 5mg Take 1 Un ally (Eliquis) 5 5-31 use of tablet (5 i ty of mg tablet 00:00: anticoagula mg) by [place] 00 nt mouth every 12 [place] (twelve) n hours. Cancer Center apixaban Yes ladies' hat trimmer 5mg Take 1 Un ally (Eliquis) 5 5-31 use of tablet (5 i ty of mg tablet 00:00: anticoagula mg) by [place] 00 nt mouth every 12 [place] (twelve) n hours. [facility] Center promethazin Yes TAKE 5 ML U nivers e-dextromet 5-30 BY MOUTH ity of horphan 00:00: EVERY 6 [place] (PROMETHAZI 00 HOURS MD WEINSTEIN) NEEDED FOR [place] 6.25-15 COUGH n mg/5 mL Cancer syrup Center promethazin Yes TAKE 5 ML U nivers e-dextromet 5-30 BY MOUTH ity of horphan 00:00: EVERY 6 [place] (PROMETHAZI 00 HOURS MD WEINSTEIN) NEEDED FOR [place] 6.25-15 COUGH n mg/5 mL Cancer syrup Center promethazin Yes TAKE 5 ML U nivers e-dextromet 5-30 BY MOUTH ity of horphan 00:00: EVERY 6 [place] (PROMETHAZI 00 HOURS MD WEINSTEIN) NEEDED FOR [place] 6.25-15 COUGH n mg/5 mL Cancer syrup Center promethazin Yes TAKE 5 ML U nivers e-dextromet 5-30 BY MOUTH ity of horphan 00:00: EVERY 6 [place] (PROMETHAZI 00 HOURS MD WEINSTEIN) NEEDED FOR [place] 6.25-15 COUGH n mg/5 mL Cancer syrup Center promethazin Yes TAKE 5 ML U nivers e-dextromet 5-30 BY MOUTH ity of horphan 00:00: EVERY 6 [place] (PROMETHAZI 00 HOURS MD WEINSTEIN) NEEDED FOR [place] 6.25-15 COUGH n mg/5 mL Cancer syrup Center promethazin 0 Yes TAKE 5 ML U nivers e-dextromet 5-30 BY MOUTH ity of horphan 00:00: EVERY 6 [place] (PROMETHAZI 00 HOURS MD WEINSTEIN) NEEDED FOR [place] 6.25-15 COUGH n mg/5 mL [facility] syrup Center spironolact 0 Yes TAKE 1 Univ ers one 5-27 TABLET BY ity of (ALDACTONE) 00:00: MOUTH [place] 25 mg 00 EVERY DAY MD tablet [facility] spironolact 0 Yes TAKE 1 Univ ers one 5-27 TABLET BY ity of (ALDACTONE) 00:00: MOUTH [place] 25 mg 00 EVERY DAY [facility] Yes TAKE 1 Univ ers one 5-27 TABLET BY ity of (ALDACTONE) 00:00: MOUTH [place] 25 mg 00 EVERY DAY MD tablet [facility] spironolact 0 Yes TAKE 1 Univ ers one 5-27 TABLET BY ity of (ALDACTONE) 00:00: MOUTH [place] 25 mg 00 EVERY DAY MD tablet [facility] spironolact 0 Yes TAKE 1 Univ ers one 5-27 TABLET BY ity of (ALDACTONE) 00:00: MOUTH [place] 25 mg 00 EVERY DAY MD tablet [facility] spironolact 0 Yes TAKE 1 Univ ers one 5-27 TABLET BY ity of (ALDACTONE) 00:00: MOUTH [place] 25 mg 00 EVERY DAY MD tablet [facility] benzonatate 0 Yes Univer s (TESSALON) 5-26 ity of 100 mg 00:00: [place] capsule [facility] [facility] [place] predniSONE 2022-0 Yes TWICE Univer s (DELTASONE) 5-26 DAILY ity of 10 mg 00:00: [place] tablet 00 [facility] ben[facility] Yes THREE Unive rs (TESSALON) 5-26 TIMES A ity of 100 mg 00:00: DAY [place] capsule 00 MD Liane olivier [facility] predniSONE 0 Yes TWICE Univer s (DELTASONE) 5-26 DAILY ity of 10 mg 00:00: [place] tablet 00 MD Liane olivier [facility] benzonatate Yes Univer s (TESSALON) 5-26 ity of 100 mg 00:00: [place] [facility] predniSONE Yes TWICE Univer s (DELTASONE) 5-26 DAILY ity of 10 mg 00:00: [place] tablet 00 MD Liane olivier [facility] benzonatate Yes Univer s (TESSALON) 5-26 ity of 100 mg 00:00: [place] capsule 00 [facility] predniSONE Yes TWICE Univer s (DELTASONE) 5-26 DAILY ity of 10 mg 00:00: [place] tablet 00 MD Liane olivier [facility] benzonatate Yes Univer s (TESSALON) 5-26 ity of 100 mg 00:00: [place] capsule 00 MD Liane olivier [facility] predniSONE Yes TWICE Univer s (DELTASONE) 5-26 DAILY ity of 10 mg 00:00: [place] tablet 00 MD Liane olivier [facility] benzonatate Yes Univer s (TESSALON) 5-26 ity of 100 mg 00:00: [place] capsule 00 MD Liane olivier [facility] predniSONE Yes TWICE Univer s (DELTASONE) 5-26 DAILY ity of 10 mg 00:00: [place] tablet 00 MD Liane olivier [facility] oxyCODONE-a Yes Univer s cetaminophe 5-20 [...] Anders[place] per tablet n [facility] oxyCODONE-a 2022-0 Yes Univer s cetaminophe 5-20 ity of n 00:00: [place] (PERCOCET) 00 MD 2.5-325 mg [place] per tablet n [facility] oxyCODONE-a 2022-0 Yes Univer s cetaminophe 5-20 ity of n 00:00: [place] (PERCOCET) 00 MD 2.5-325 mg [place] per tablet n [facility] oxyCODONE-a 0 Yes Univer s cetaminophe 5-20 ity of n 00:00: [place] (PERCOCET) 00 MD 2.5-325 mg Anderso per tablet [facility] cefPODoxime 2022-0 Yes 200mg Take 1 Uni vers (VANTIN) 5-14 tablet ity of 200 mg 00:00: (200 mg) [place] tablet 00 by mouth MD twice Anderso daily. [facility] cefPODoxime 3-0 Yes 200mg Take 1 Uni vers (VANTIN) 5-14 tablet ity of 200 mg 00:00: (200 mg) [place] tablet 00 by mouth MD twice Anderso daily. [facility] cefPODoxime 3-0 Yes 200mg Take 1 Uni vers (VANTIN) 5-14 tablet ity of 200 mg 00:00: (200 mg) [place] tablet 00 by mouth MD twice Anderso daily. [facility] cefPODoxime 2022-0 Yes 200mg Take 1 Uni vers (VANTIN) 5-14 tablet ity of 200 mg 00:00: (200 mg) [place] tablet 00 by mouth MD twice Anderso daily. [facility] cefPODoxime 3-0 Yes 200mg Take 1 Uni vers (VANTIN) 5-14 tablet ity of 200 mg 00:00: (200 mg) [place] tablet 00 by mouth MD twice Anderso daily. [facility] cefPODoxime 3-0 Yes 200mg Take 1 Uni vers (VANTIN) 5-14 tablet ity of 200 mg 00:00: (200 mg) [place] tablet 00 by mouth MD twice Anderso daily. [facility] cefPODoxime 3-0 Yes 200mg Take 1 Uni vers (VANTIN) 5-14 tablet ity of 200 mg 00:00: (200 mg) [place] tablet 00 by mouth MD twice Andersclint daily. [facility] cefPODoxime Yes 200mg Take 1 Uni vers (VANTIN) 5-14 tablet ity of 200 mg 00:00: (200 mg) [place] tablet 00 by mouth twice Andevelin daily. n [facility] [place] metFORMIN Yes TAKE 1 Univer s (GLUCOPHAGE 5-10 TABLET BY ity of ) 1000 mg 00:00: MOUTH IN [place] tablet 00 THE MORNING [place] AND IN THE n [...] needed for Cancer severe Center pain. HYDROcodone 2023-0 Yes 2745 1{tbl} Take 1 [...] tablet 53 by mouth MD daily. [facility] dicyclomine Yes 10mg [...] tablet 53 by mouth MD daily. [facility] dicyclomine Yes 10mg Take [...] tablet 53 by mouth MD daily. [facility] dicyclomine 2023-0 Yes 10mg Take 1 Univ ers (BENTYL) 10 - capsule ity o f mg capsule 11:42: (10 mg) by Christelle love 53 mouth 3 (three) Anderso times a n day. [facility] gabapentin 2022-0 Yes Chronic TAKE 1 Un ally (NEURONTIN) - pain TABLET(800 it y of 800 mg 00:00: MG) BY [place] tablet 00 MOUTH MD EVERY 8 Anderso HOURS [facility] gabapentin 2022-0 Yes Chronic TAKE 1 Un ally (NEURONTIN) - pain TABLET(800 it y of 800 mg 00:00: MG) BY [place] tablet 00 MOUTH MD EVERY 8 Anderso HOURS [facility] gabapentin 2022-0 Yes Chronic TAKE 1 Un ally (NEURONTIN) - pain TABLET(800 it y of 800 mg 00:00: MG) BY [place] tablet 00 MOUTH MD EVERY 8 Anderso HOURS [facility] gabapentin 2022-0 2023- No Chronic TAKE 1 U nivers (NEURONTIN) 03-02 pain TABLET(800 i ty of 800 mg 00:00: 00:00 MG) BY [place] tablet 00 :00 MOUTH MD EVERY 8 Anderso HOURS [facility] gabapentin 2022-0 2023- No Chronic TAKE 1 U nivers (NEURONTIN) 03-02 pain TABLET(800 i ty of 800 mg 00:00: 00:00 MG) BY [place] tablet 00 :00 MOUTH MD EVERY 8 Anderso HOURS [facility] gabapentin 2022-0 2023- No Chronic TAKE 1 U nivers (NEURONTIN) 03-02 pain TABLET(800 i ty of 800 mg 00:00: 00:00 MG) BY [place] tablet 00 :00 MOUTH MD EVERY 8 Anderso HOURS [facility] gabapentin 2022-0 2023- No Chronic TAKE 1 U nivers (NEURONTIN) 03-02 pain TABLET(800 i ty of 800 mg 00:00: 00:00 MG) BY [place] tablet 00 :00 MOUTH MD EVERY 8 Anderso HOURS [facility] gabapentin 2022-0 2023- No Chronic TAKE 1 U nivers (NEURONTIN) 03-02 pain TABLET(800 i ty of 800 mg 00:00: 00:00 MG) BY [place] tablet 00 :00 MOUTH MD EVERY 8 Anderso HOURS n [facility] gabapentin 2022-2022- No Chronic TAKE 1 U nivers (NEURONTIN) 5-02 06-09 pain TABLET(800 i ty of 800 mg 00:00: 00:00 MG) BY [place] tablet 00 :00 MOUTH MD EVERY 8 Anderso HOURS n [facility] pseudoephed Yes Chronic 30mg Take 1 U nivers rine 4-28 pain tablet (30 ity of (Sudafed) 00:00: mg) by [place] 30 mg 00 mouth MD tablet every 8 Anderso (eight) n hours as Cancer needed for Center congestion . pseudoephed Yes Chronic 30mg Take 1 U nivers rine 4-28 pain tablet (30 ity of (Sudafed) 00:00: mg) by [place] 30 mg 00 mouth MD tablet every 8 Anderso (eight) n hours as Cancer needed for Center congestion . pseudoephed Yes Chronic 30mg Take 1 U nivers rine 4-28 pain tablet (30 ity of (Sudafed) 00:00: mg) by [place] 30 mg 00 mouth MD tablet every 8 Anderso (eight) n hours as Cancer needed for Center congestion . pseudoephed Yes Chronic 30mg Take 1 U nivers rine 4-28 pain tablet (30 ity of (Sudafed) 00:00: mg) by [place] 30 mg 00 mouth MD tablet every 8 Anderso (eight) n hours as Cancer needed for Center congestion . pseudoephed Yes Chronic 30mg Take 1 U nivers rine 4-28 pain tablet (30 ity of (Sudafed) 00:00: mg) by [place] 30 mg 00 mouth MD tablet every 8 Anderso (eight) n hours as Cancer needed for Center congestion . pseudoephed Yes Chronic 30mg Take 1 U nivers rine 4-28 pain tablet (30 ity of (Sudafed) 00:00: mg) by [place] 30 mg 00 mouth MD tablet every 8 Anderso (eight) n hours as Cancer needed for Center congestion . pseudoephed Yes Chronic 30mg Take 1 U nivers rine 4-28 pain tablet (30 ity of (Sudafed) 00:00: mg) by [place] 30 mg 00 mouth MD tablet every [...] tablet DAILY Anderso [facility] METOPROLOL Yes TAKE 1 Unive rs [...] 24 00 TWICE MD hr tablet DAILY [facility] metoprolol Yes TAKE 1 Unive rs succinate 4-26 TABLET BY ity o f (TOPROL XL) 00:00: MOUTH [place] 100 mg 24 00 TWICE MD hr tablet DAILY [facility] metoprolol Yes TAKE 1 Unive rs succinate 4-26 TABLET BY ity o f (TOPROL XL) 00:00: MOUTH [place] 100 mg 24 00 TWICE MD hr tablet DAILY [facility] metoprolol Yes TAKE 1 Unive rs succinate 4-26 TABLET BY ity o f (TOPROL XL) 00:00: MOUTH [place] 100 mg 24 00 TWICE MD hr tablet DAILY [facility] metoprolol Yes TAKE 1 Unive rs succinate 4-26 TABLET BY ity o f (TOPROL XL) 00:00: MOUTH [place] 100 mg 24 00 TWICE MD hr tablet DAILY [facility] hydrALAZINE 2022- No hypertensio 100mg Take 1 Univers (APRESOLINE -18 -18 n tablet ity o f ) 100 mg 16:41: 00:00 (100 mg) [place] tablet [place] :00 [place] mouth 3 MD (three) Anderso times a n day. [facility] hydroCHLORO 2022- No 12.5mg Take 1 [...] times a n day as Cancer needed. [place] hydrALAZINE 2022- No hypertensio 100mg Take 1 [...] MD capsule every Anderso morning. n [facility] [place] cloNIDine 2022- No .2mg Take 1 Unive rs HCl 4-18 04-18 tablet ity of (CATAPRES) 16:41: 00:[place]0.2 mg[place] 0.2 [place] 23 :00 by mouth 3 MD tablet (three) Anderso times a n day as Cancer needed. [place] hydrALAZINE 2022- No hypertensio 100mg Take 1 Univers (APRESOLINE 4-18 04-18 n tablet ity o f ) 100 mg 16:41: 00:00 (100 mg) [place] tablet 23 :00 by mouth 3 MD (three) [place] times a n day. [facility] [place] hydroCHLORO 2022- No 12.5mg Take 1 U nivers thiazide 4-18 04-18 capsule ity of (MICROZIDE) 16:41: 00:00 (12.5 mg) [place] 12.5 mg 23 :00 by mouth MD capsule every Anderso morning. n [facility] [place] cloNIDine 2022- No .2mg Take 1 Unive rs HCl 4-18 04-18 tablet ity of (CATAPRES) 16:41: 00:00 (0.2 mg[place] 0.2 mg 23 :00 by mouth 3 MD tablet (three) Anderso times a n day as Cancer needed. [place] hydrALAZINE 2022- No hypertensio 100mg Take 1 Univers (APRESOLINE 4-18 04-18 n tablet ity o f ) 100 mg 16:41: 00:00 (100 mg) [place] 23 :00 by mouth 3 MD (three) Anderso times a n day. [facility] [place] hydroCHLORO 2022- No 12.5mg Take 1 U nivers thiazide 4-18 04-18 capsule ity of (MICROZIDE) 16:41: 00:00 (12.5 mg) [place] 12.5 mg 23 :00 by mouth MD capsule every Anderso morning. n [facility] [place] cloNIDine 2022- No .2mg Take 1 Unive rs HCl 4-18 04-18 tablet ity of (CATAPRES) 16:41: 00:00 (0.2 mg) [place] 0.2 mg 23 :00 by mouth 3 MD tablet (three) Anderso times a n day as Cancer needed. [place] hydrALAZINE No hypertensio 100mg Take 1 Univers (APRESOLINE 4-18 04-18 n tablet ity o f ) 100 mg 16:41: 00:00 (100 mg) [place] tablet 23 :00 by mouth 3 MD (three) Anders[place] times a n day. [facility] [place] hydroCHLORO 2022- No 12.5mg Take 1 U nivers thiazide 4-18 04-18 capsule ity of (MICROZIDE) 16:41: 00:00 (12.5 mg) [place] 12.5 mg 23 :00 by mouth MD capsule every Anderso morning. n [facility] [place] cloNIDine 0 2022- No .2mg Take 1 Unive rs HCl 4-18 04-18 tablet ity of (CATAPRES) 16:41: 00:00 (0.2 mg) [place] 0.2 mg 23 :00 by mouth 3 MD tablet (three) Anderso times a n day as Cancer needed. [place] hydrALAZINE 2022- No hypertensio 100mg Take 1 Univers (APRESOLINE 4-18 04-18 n tablet ity o f ) 100 mg 16:41: 00:00 (100 mg) [place] :00 by mouth 3 MD (three) Anders[place] times a n day. [facility] hydroCHLORO 2022- No 12.5mg Take 1 U nivers thiazide 4-18 04-18 capsule ity of (MICROZIDE) 16:41: 00:00 (12.5 mg) [place] 12.5 mg 23 :00 by mouth MD capsule every Anderso morning. n [facility] cloNIDine 2022- No .2mg Take 1 Unive rs HCl 4-18 04-18 tablet ity of (CATAPRES) 16:41: 00:00 (0.2 mg) [place] 0.2 mg 23 :00 by mouth 3 MD tablet (three) Anderso times a n day as Cancer needed. [place] hydrALAZINE No hypertensio 100mg Take 1 Univers (APRESOLINE 4-18 04-18 n tablet ity o f ) 100 mg 16:41: 00:00 (100 mg) [place] 23 :00 by mouth 3 MD (three) Anderso times a n day. [facility] hydroCHLORO 2022- No 12.5mg Take 1 U nivers thiazide 4-18 04-18 capsule ity of (MICROZIDE) 16:41: 00:00 (12.5 mg) [place] 12.5 mg 23 :00 by mouth MD capsule every Anderso morning. n [facility] cloNIDine 2022- No .2mg Take 1 Unive rs HCl 4-18 04-18 tablet ity of (CATAPRES) 16:41: 00:00 (0.2 mg) [place] 0.2 mg 23 :00 by mouth 3 MD tablet (three) Anderso times a n day as Cancer needed. [place] hydrALAZINE 2022- No hypertensio 100mg Take 1 [...] .2mg Take 1 Unive rs HCl 4-18 -18 tablet ity of (CATAPRES) 16:41: 00:00 (0.2 mg) [place] 0.2 mg 23 :00 by mouth 3 MD tablet (three) Anderso times a n day as Cancer needed. [place] hydrALAZINE No hypertensio 100mg Take 1 Univers (APRESOLINE 4-18 -18 n tablet ity o f ) 100 mg 16:41: 00:00 (100 mg) [place] tablet 23 :00 by mouth 3 MD (three) [place] times a n day. [facility] hydroCHLORO 2022- No 12.5mg Take 1 U nivers thiazide 4-18 -18 capsule ity of (MICROZIDE) 16:41: 00:00 (12.5 mg) [place] 12.5 mg 23 :00 by mouth MD capsule every Anderso morning. n [facility] cloNIDine 2022- No .2mg Take 1 Unive rs HCl 4-18 -18 tablet ity of (CATAPRES) 16:41: 00:00 [...] tablet daily for Anderso 3 days. n [facility] levoFLOXaci 2022- No Deep venous 750mg Take 1 Univers n 02-16 thrombosis tablet ity of (LEVAQUIN) 00:00: 04:59 <Unspecifie (750 mg) [place] 750 mg 00 :00 d side> by mouth MD tablet daily for [place] 3 days. n [facility] levoFLOXaci 2022- No Deep venous 750mg Take 1 Univers n 02-16 thrombosis tablet ity of (LEVAQUIN) 00:00: 04:59 <Unspecifie (750 mg) [place] 750 mg 00 :00 d side> by mouth MD tablet daily for Anderso 3 days. [facility] 2022- No Deep venous 750mg Take 1 Univers n 02-16 thrombosis tablet ity of (LEVAQUIN) 00:00: 04:59 <Unspecifie (750 mg) [place] 750 mg 00 :00 d side> by mouth MD tablet daily for Anderso 3 days. [facility] 2022- No Deep venous 750mg Take 1 Univers n 02-16 thrombosis tablet ity of (LEVAQUIN) 00:00: 04:59 <Unspecifie (750 mg) [place] 750 mg 00 :00 d side> by mouth MD tablet daily for Anderso 3 days. [facility] 2022- No Deep venous 750mg Take 1 Univers n 02-16 thrombosis tablet ity of (LEVAQUIN) 00:00: 04:59 <Unspecifie (750 mg) [place] 750 mg 00 :00 d side> by mouth MD tablet daily for Anderso 3 days. [facility] 2022- No Deep venous 750mg Take 1 Univers n 02-16 thrombosis tablet ity of (LEVAQUIN) 00:00: 04:59 <Unspecifie (750 mg) [place] 750 mg 00 :00 d side> by mouth MD tablet daily for Anderso 3 days. [facility] 2022- No Deep venous 750mg Take 1 Univers n 02-16 thrombosis tablet ity of (LEVAQUIN) 00:00: 04:59 <Unspecifie (750 mg) [place] 750 mg 00 :00 d side> by mouth MD tablet daily for Anderso 3 days. [facility] 2022- No Deep venous 750mg Take 1 Univers n 02-16 thrombosis tablet ity of (LEVAQUIN) 00:00: 04:59 <Unspecifie (750 mg) [place] 750 mg 00 :00 d side> by mouth MD tablet daily for Anderso 3 days. [facility] enoxaparin Yes Deep venous 120mg Inject 0.8 Univers (LOVENOX) 4-14 thrombosis mL (120 i ty of 120 mg/0.8 00:00: <Unspecifie mg) under [place] mL 00 d side> the skin MD prefilled every 12 Lauri o syringe (twelve) n hours. [facility] enoxaparin Yes Deep venous 120mg Inject [...] 12 Lauri o syringe (twelve) n hours. [facility] enoxaparin 2022- No Deep venous 120mg Inject 0.8 Univers (LOVENOX) 02-12-31 thrombosis mL (120 ity of 120 mg/0.8 00:00: 00:00 <Unspecifie mg) under [place] mL 00 :00 d side> the skin MD prefilled every 12 Lauri o syringe (twelve) n hours. [facility] enoxaparin 2022- No Deep venous 120mg Inject 0.8 Univers (LOVENOX) 02-12-31 thrombosis mL (120 ity of 120 mg/0.8 00:00: 00:00 <Unspecifie mg) under [place] mL 00 :00 d side> the skin MD prefilled every 12 Lauri o syringe (twelve) n hours. [facility] oxyCODONE-a 2022- No Neoplasm 1{tbl} Take [...] pain for up to 45 days. lidocaine 2022-0 Yes Adenocarcin 5mL Swish and [...] nasal spray , NOS twice n daily. 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 ondansetron 2023- No Adenoid 8mg Take 1 Univers (ZOFRAN) 8 02-04-06 cystic tablet (8 i ty of mg tablet 00:00: 04:59 carcinoma mg) by [place] 00 :00 of mouth MD nasopharynx every [...] for Center nausea or vomiting. ondansetron 3-0 202- No Adenoid 8mg Take 1 Univers (ZOFRAN) [...] x 5/16 syrg hyperglycem A nderso ia [facility] Center insulin 2022- No Type 2 USE Unive rs syringe-nee 02-02 diabetes DIRECTED ity of dle U-100 1 00:00: 00:00 mellitus FOUR TIMES [place] mL 31 gauge 00 :00 with DAILY MD x 5/16 syrg [facility]m [facility] insulin 2022- No Type 2 USE Unive rs syringe-nee 02-02 diabetes DIRECTED ity of dle U-100 1 00:00: 00:00 mellitus FOUR TIMES [place] mL 31 gauge 00 :00 with DAILY MD x 5/16 syrg [facility]cem [facility] insulin 2022- No Type 2 USE Unive rs syringe-nee 02-02 diabetes DIRECTED ity of dle U-100 1 00:00: 00:00 mellitus FOUR TIMES [place] mL 31 gauge 00 :00 with DAILY MD x 5/[address] [facility] Center insulin 2022- No Type 2 USE Unive rs syringe-nee 02-02 diabetes DIRECTED ity of dle U-100 1 00:00: 00:00 mellitus FOUR TIMES [place] mL 31 gauge 00 :00 with DAILY MD x 5/16 syrg hyperglycem A nderso ia [facility] Center insulin 2022- No Type [...] Anderso (eight) n hours. [facility] gabapentin 2022-2022- No Chronic 800mg Take 1 Univers (NEURONTIN) 02-01- pain tablet ity o f 800 mg 00:00: 00:00 (800 mg) [place] tablet 00 :00 by mouth MD every 8 Anderso (eight) n hours. [facility] gabapentin 2022-2022- No Chronic 800mg Take 1 Univers (NEURONTIN) 02-01- pain tablet ity o f 800 mg 00:00: 00:00 (800 mg) [place] tablet 00 :00 by mouth MD every 8 Anderso (eight) n hours. [facility] gabapentin 2022-2022- No Chronic 800mg Take 1 Univers (NEURONTIN) 02-01- pain tablet ity o f 800 mg 00:00: 00:00 (800 mg) [place] tablet 00 :00 by mouth MD every 8 Anderso (eight) n hours. [facility] gabapentin 2022- No Chronic 800mg Take 1 Univers (NEURONTIN) 02-01 pain tablet ity o f 800 mg 00:00: 00:00 (800 mg) [place] tablet 00 :00 by mouth MD every 8 Anderso (eight) n hours. [facility] gabapentin 2022-2022- No Chronic 800mg Take 1 Univers (NEURONTIN) 02-01- pain tablet ity o f 800 mg 00:00: 00:00 (800 mg) [place] tablet 00 :00 by mouth MD every 8 Anderso (eight) n hours. [facility] gabapentin 2022-2022- No Chronic 800mg Take 1 Univers (NEURONTIN) 02-01- pain tablet ity o f 800 mg 00:00: 00:00 (800 mg) [place] tablet 00 :00 by mouth MD every 8 Anderso (eight) n hours. [facility] gabapentin 2022- No Chronic 800mg Take 1 Univers (NEURONTIN) 02-01-02 pain tablet ity o f 800 mg 00:00: 00:00 (800 mg) [place] tablet 00 :00 by mouth MD every 8 Anderso (eight) n hours. [facility] gabapentin 2022- No Chronic 800mg Take 1 Univers (NEURONTIN) - 05-02 pain tablet ity o f 800 mg 00:00: 00:00 (800 mg) [place] tablet 00 :00 by mouth MD every 8 Anderso (eight) n hours. [facility] pen needle, Yes Type 2 Use to Un ally diabetic 4- diabetes inject ity o f (Easy 00:00: mellitus insulin 4 Frankie as Comfort Pen 00 with times a MD [place]) 31 hyperglycem day A nderso gauge x ia n 03/16" [email or web address]] pen needle, Yes Type 2 Use to Un ally diabetic 4- diabetes inject ity o f (Easy 00:00: mellitus insulin 4 Frankie as Comfort Pen 00 with times a MD [place]) 31 hyperglycem day A nderso gauge x ia n 03/16" [facility] [[email or web address]] pen needle, Yes Type 2 Use to Un ally diabetic 4- diabetes inject ity o f (Easy 00:00: mellitus insulin 4 Frankie as Comfort Pen 00 with times a MD [place]) 31 hyperglycem day A nderso gauge x ia n 03/16" [facility] [[email or web address]] pen needle, Yes Type 2 Use to Un ally diabetic 4- diabetes inject ity o f (Easy 00:00: mellitus insulin 4 Frankie as Comfort Pen 00 with times a MD [place]) 31 hyperglycem day A nderso gauge x ia n 03/16" [facility] [[email or web address] pen needle, Yes Type 2 Use to Un ally diabetic 4-02 diabetes inject ity o f (Easy 00:00: mellitus insulin 4 Frankie as Comfort Pen 00 with times a MD [place]) 31 hyperglycem day A nderso gauge x ia n 03/16" [facility] [[email or web address] pen needle, Yes Type 2 Use to Un ally diabetic 4-02 diabetes inject ity o f (Easy 00:00: mellitus insulin 4 Frankie as Comfort Pen 00 with times a MD [place]) 31 hyperglycem day A nderso gauge x ia n 03/16" [facility] [[email or web address] pen needle, Yes Type 2 Use to Un ally diabetic 4-02 diabetes inject ity o f (Easy 00:00: mellitus insulin 4 Frankie as Comfort Pen 00 with times a MD [place]) 31 hyperglycem day A nderso gauge x ia n 03/16"[facility] pen needle, Yes Type 2 Use to Un ally diabetic 01-31 diabetes inject ity o f (Easy 00:00: mellitus insulin 4 [place]ie as Comfort Pen 00 with times a MD [place]) 31 hyperglycem day A nderso gauge x ia n 03/16"[facility] pen needle, Yes Type 2 Use to Un ally diabetic 01-31 diabetes inject ity o f (Easy 00:00: mellitus insulin 4 Frankie as Comfort Pen 00 with times a MD [place]) 31 hyperglycem day A nderso gauge x ia n 03/16" [facility] [[email or web address] insulin 2022- No Type 2 Inject 5 [...] 00:00 [place] 00 :00 MD Liane olivier [facility] insulin 2022- No Type 2 Inject [...] 00:00 [place] 00 :00 MD Liane olivier [facility] insulin 2022- No Type [...] needle 00:00: 00:00 [place] 00 :00 MD Linae olivier [facility] insulin 2022- No Type [...] 00:00 [place] 00 :00 MD Liane olivier [facility] insulin 2022- No Type 2 Inject [...] 3 [facility], n (three) n Tristaikpen) times a Cancer 500 unit/mL day, Center (3 mL) before insulin pen meals. Inject as instructed at discharge. pen needle, 2022- No Use as Uni vers diabetic 01-31 directed. ity o f needle 00:00: 00:00 [place] 00 :00 MD Liane olivier [facility] insulin 2022- No Type 2 Inject [...] 00:00 [place] 00 :00 MD Liane olivier [facility] insulin 2022- No Type [...] 00:00 [place] 00 :00 MD Liane olivier [facility] insulin 2022- No Type 2 Inject [...] 00:00: 00:00 [place] 00 :00 MD Liane loivier [facility] insulin 2022- No Type 2 [...] MD Liane olivier [facility] naloxone Yes ladies' hat trimmer 1 dose Un ally (Narcan) 4 01-20 current use into one ity of mg/actuatio 00:00: of opiate nostril as [place] n nasal 00 analgesic needed for M D spray opioid [place] overdose. n another Cancer dose into Center the other nostril after 2 minutes if the patient does not respond naloxone Yes ladies' hat trimmer 1 dose Un alyl (Narcan) 4 01-20 current use into one ity of mg/actuatio 00:00: of opiate nostril as [place] n nasal 00 analgesic needed for M D spray opioid [place] overdose. n another Cancer dose into Center the other nostril after 2 minutes if the patient does not respond naloxone Yes shelter 1 dose Un ally (Narcan) 4 3-22 current use into one ity of mg/actuatio 00:00: of opiate nostril as [place] n nasal 00 analgesic needed for M D spray opioid [place] overdose. n another Cancer dose into Center the other nostril after 2 minutes if the patient does not respond naloxone 2023-0 Yes shelter 1 dose Un ally (Narcan) 4 3-22 current use into one ity of mg/actuatio 00:00: of opiate nostril as [place] n nasal 00 analgesic needed for M D spray opioid [place] overdose. n another Cancer dose into Center the other nostril after 2 minutes if the patient does not respond naloxone 2023-0 Yes ladies' hat trimmer 1 dose Un ally (Narcan) 4 3-22 current use into one ity of mg/actuatio 00:00: of opiate nostril as [place] n nasal 00 analgesic needed for M D spray opioid [place] overdose. n another Cancer dose into Center the other nostril after 2 minutes if the patient does not respond naloxone 2023-0 Yes shelter 1 dose Un ally (Narcan) 4 3-22 current use into one ity of mg/actuatio 00:00: of opiate nostril as [place] n nasal 00 analgesic needed for M D spray opioid [place] overdose. n another Cancer dose into Center the other nostril after 2 minutes if the patient does not respond naloxone 2023-0 Yes ladies' hat trimmer 1 dose [facility] (Narcan) 4 3-22 current use into one ity of mg/actuatio 00:00: of opiate nostril as [place] n nasal 00 analgesic needed for M D spray opioid Anderso overdose. n another Cancer dose into Center the other nostril after 2 minutes if the patient does not respond naloxone 2023-0 Yes ladies' hat trimmer 1 dose Un [facility] (Narcan) 4 3-22 current use into one ity of mg/actuatio 00:00: of opiate nostril as [place] n nasal 00 analgesic needed for M D spray opioid Anderso overdose. n another Cancer dose into Center the other nostril after 2 minutes if the patient does not respond naloxone 2023-0 Yes ladies' hat trimmer 1 dose Un [facility] (Narcan) 4 3-22 [...] suspension 00:00: 00:00 mucositis mL 2 (two) [place] (AMB-CMPD) 00 :00 due to times a MD antineoplas day as Lauri o tic therapy needed for n mouth Cancer pain. Center xyloxylin 2022- No Ulcerative 10mL [facility] oral 3-22 04-18 oral swallow 10 ity of suspension 00:00: 00:00 mucositis mL 2 (two) [place] (AMB-CMPD) 00 :00 due to times a MD antineoplas day as Lauri o tic therapy needed for n mouth Cancer pain. [place] xyloxylin 2022- No Ulcerative 10mL [facility] oral 3-22 04-18 oral swallow 10 ity of suspension 00:00: 00:00 mucositis mL 2 (two) [place] (AMB-CMPD) 00 :00 due to times a MD antineoplas day as Lauri o tic therapy needed for n mouth Cancer pain. Center xyloxylin 2022- No Ulcerative 10mL [facility] oral 3-22 04-18 oral swallow 10 ity of suspension 00:00: 00:00 mucositis mL 2 (two) [place] (AMB-CMPD) 00 :00 due to times a MD antineoplas day as Lauri o tic therapy needed for n mouth Cancer pain. Center xyloxylin 2022- No Ulcerative 10mL [facility] oral 3-22 04-18 oral swallow 10 ity of suspension 00:00: 00:00 mucositis mL 2 (two) [place] (AMB-CMPD) 00 :00 due to times a MD antineoplas day as Lauri o tic therapy needed for n mouth Cancer pain. Center xyloxylin 2022- No Ulcerative 10mL [facility] oral 3-22 04-18 oral swallow 10 ity of suspension 00:00: 00:00 mucositis mL 2 (two) [place] (AMB-CMPD) 00 :00 due to times a MD antineoplas day as Lauri o tic therapy needed for n mouth Cancer pain. [place] xyloxylin 2022-0 2022- No Ulcerative 10mL [facility] oral 01-20-18 oral swallow 10 ity of suspension 00:00: 00:00 mucositis mL 2 (two) [place] (AMB-CMPD) 00 :00 due to times a MD antineoplas day as Lauri o tic therapy needed for n mouth Cancer pain. Center xyloxylin 2022- No Ulcerative 10mL [facility] oral 01-20-18 oral swallow 10 ity of suspension 00:00: 00:00 mucositis mL 2 (two) [place] (AMB-CMPD) 00 :00 due to times a MD antineoplas day as Lauri o tic therapy needed for n mouth Cancer pain. Center xyloxylin 2022- No Ulcerative 10mL [facility] oral 01-20-18 oral swallow 10 ity of suspension 00:00: 00:00 mucositis mL 2 (two) [place] (AMB-CMPD) 00 :00 due to times a MD antineoplas day as Lauri o tic therapy needed for n mouth Cancer pain. [place] hydrALAZINE 2022- No 100mg Take 1 Un [...] a n day with Cancer meals. Center spironolact 2022- No 25mg Take 1 Uni vers one 3-20 03-20 tablet (25 ity of (ALDACTONE) 19:34: 00:00 mg) by [place] as 25 mg 54 :00 mouth [facility]- No 100mg Take 1 Un [facility] (APRESOLINE 3-20 03-20 tablet ity o f ) 100 mg 19:34: 00:00 (100 mg[place] tablet [place] :00 [place] mouth 3 MD (three) Anderso times a n day. [facility] metFORMIN 2022-0 3- No 1000mg Take 1 Uni vers (GLUCOPHAGE 3-20 03-20 tablet ity o f ) 1000 mg 19:34: 00:00 (1,000 mg) [place] tablet 54 :00 by mouth 2 MD (two) Anderso times a n day with Cancer meals. [place] spironolact 2022-0 2022- No 25mg Take 1 Uni vers one 3-20 03-20 tablet (25 ity of (ALDACTONE) 19:34: 00:00 mg) by [place] as 25 mg 54 :00 mouth MD tablet daily. [facility] hydrALAZINE 2022-0 2022- No 100mg Take 1 Un ally (APRESOLINE 3-20 03-20 tablet ity o f ) 100 mg 19:34: 00:00 (100 mg[place] tablet 54 :00 by mouth 3 MD (three) Anderso times a n day. [facility] metFORMIN 2022-0 2022- No 1000mg Take 1 Uni vers (GLUCOPHAGE 3-20 03-20 tablet ity o f ) 1000 mg 19:34: 00:00 (1,000 mg) [place] tablet 54 :00 by mouth 2 MD (two) Anderso times a n day with Cancer meals. [place] spironolact 2022-0 2022- No 25mg Take 1 Uni vers one 3-20 03-20 tablet (25 ity of (ALDACTONE) 19:34: 00:00 mg) by [place] as 25 mg 54 :00 mouth MD tablet daily. [facility] hydrALAZINE 2022-0 2022- No 100mg Take 1 Un ally (APRESOLINE 3-20 03-20 tablet ity o f ) 100 mg 19:34: 00:00 (100 mg[place] tablet 54 :00 by mouth 3 MD (three) Anderso times a n day. [facility] metFORMIN 2022-0 2022- No 1000mg Take 1 Uni vers (GLUCOPHAGE 3-20 03-20 tablet ity o f ) 1000 mg 19:34: 00:00 (1,000 mg) [place] tablet 54 :00 by mouth 2 MD (two) Anderso times a n day with Cancer meals. [place] spironolact 2022-0 3- No 25mg Take 1 Uni vers one 3-20 03-20 tablet (25 ity of (ALDACTONE) 19:34: 00:00 mg) by [place] as 25 mg 54 :00 mouth MD tablet daily. [facility] hydrALAZINE 2022-2022- No 100mg Take 1 [facility] ally (APRESOLINE 3-20 03-20 tablet ity o f ) 100 mg 19:34: 00:00 (100 mg) [place] :00 by mouth 3 MD (three) Anderso times a n day. [facility] metFORMIN 2022-0 2022- No 1000mg Take 1 Uni vers (GLUCOPHAGE 3-20 03-20 tablet ity o f ) 1000 mg 19:34: 00:00 (1,000 mg) [place] tablet 54 :00 by mouth 2 MD (two) Anderso times a n day with Cancer meals. [place] spironolact 2022-2022- No 25mg Take 1 Uni vers one 3-20 03-20 tablet (25 ity of (ALDACTONE) 19:34: 00:00 mg) by [place] as 25 mg 54 :00 mouth MD tablet daily. [facility] hydrALAZINE 2022-2022- No 100mg Take 1 [facility] ally (APRESOLINE 3-20 03-20 tablet ity o f ) 100 mg 19:34: 00:00 (100 mg[place] tablet [place] :00 by mouth 3 MD (three) Anderso times a n day. [facility] metFORMIN 2022-0 2022- No 1000mg Take 1 Uni vers (GLUCOPHAGE 3-20 03-20 tablet ity o f ) 1000 mg 19:34: 00:00 (1,000 mg) [place] tablet 54 :00 by mouth 2 MD (two) Anderso times a n day with Cancer meals. [place] spironolact 2022-0 2022- No 25mg Take 1 Uni vers one 3-20 03-20 tablet (25 ity of (ALDACTONE) 19:34: 00:00 mg) by [place] as 25 mg 54 :00 mouth MD tablet daily. [facility] hydrALAZINE 2022-0 2022- No 100mg Take 1 [facility] (APRESOLINE 3-20 03-20 tablet ity o f ) 100 mg 19:34: 00:00 (100 mg) [place] tablet 54 :00 by mouth 3 MD (three) Anderso times a n day. [facility] metFORMIN 2022-2022- No 1000mg Take 1 Uni vers (GLUCOPHAGE 3-20 03-20 tablet ity o f ) 1000 mg 19:34: 00:00 (1,000 mg) [place] tablet 54 :00 by mouth 2 MD (two) Anderso times a n day with Cancer meals. [place] spironolact 2022- No 25mg Take 1 Uni vers one 3-20 03-20 tablet (25 ity of (ALDACTONE) 19:34: 00:00 mg) by [place] as 25 mg 54 :00 mouth MD tablet daily. [facility] hydrALAZINE 2022- No 100mg Take 1 [facility] (APRESOLINE 3-20 03-20 tablet ity o f ) 100 mg 19:34: 00:00 (100 mg) [place] tablet [place] :00 by mouth 3 MD (three) Anderso times a n day. [facility] metFORMIN 2022- No 1000mg Take 1 Uni vers (GLUCOPHAGE 3-20 03-20 tablet ity o f ) 1000 mg 19:34: 00:00 (1,000 mg) [place] tablet 54 :00 by mouth 2 MD (two) Anderso times a n day with Cancer meals. [place] spironolact 2022- No 25mg Take 1 Uni vers one 3-20 03-20 tablet (25 ity of (ALDACTONE) 19:34: 00:00 mg) by [place] as 25 mg 54 :00 mouth MD tablet daily. [facility] hydrALAZINE 2022-2022- No 100mg Take 1 [facility] (APRESOLINE 3-20 03-20 tablet ity o f ) 100 mg 19:34: 00:00 (100 mg) [place] tablet [place] :00 by mouth 3 MD (three) Anderso times a n day. [facility] metFORMIN 2022-0 2022- No 1000mg Take 1 Uni vers (GLUCOPHAGE 3-20 03-20 tablet ity o f ) 1000 mg 19:34: 00:00 (1,000 mg) [place] tablet 54 :00 by mouth 2 MD (two) Anderso times a n day with Cancer meals. [place] spironolact 2022- No 25mg Take 1 Uni vers one 3-20 03-20 tablet (25 ity of (ALDACTONE) 19:34: 00:00 mg) by [place] as 25 mg 54 :00 mouth MD tablet daily. Anderso n [facility] metoprolol No Hypertensio 50mg Take 1 [facility] tartrate 3-20 04-20 n tablet (50 ity of (LOPRESSOR) 00:00: 04:59 mg) by [place] as 50 mg 00 :00 mouth MD tablet twice Anderso daily for n 30 days. [facility] metoprolol No Hypertensio 50mg Take 1 [facility] tartrate 3-20 04-20 n tablet (50 ity of (LOPRESSOR) 00:00: 04:59 mg) by [place] as 50 mg 00 :00 mouth MD tablet twice Anderso daily for n 30 days. [facility] metoprolol No Hypertensio 50mg Take 1 [facility] tartrate 3-20 04-20 n tablet (50 ity of (LOPRESSOR) 00:00: 04:59 mg) by [place] 50 mg 00 :00 mouth MD tablet twice Anderso daily for n 30 days. [facility] metoprolol No Hypertensio 50mg Take 1 [facility] tartrate 3-20 04-20 n tablet (50 ity of (LOPRESSOR) 00:00: 04:59 mg) by [place] 50 mg 00 :00 mouth MD tablet twice Anderso daily for n 30 days. [facility] metoprolol No Hypertensio 50mg Take 1 [facility] tartrate 3-20 04-20 n tablet (50 ity of (LOPRESSOR) 00:00: 04:59 mg) by [place] as 50 mg 00 :00 mouth MD tablet twice Anderso daily for n 30 days. [facility] metoprolol No Hypertensio 50mg Take 1 [facility] tartrate 3-20 04-20 n tablet (50 ity of (LOPRESSOR) 00:00: 04:59 mg) by [place] 50 mg 00 :00 mouth MD tablet twice Anderso daily for n 30 days. [facility] metoprolol 2022- No Hypertensio 50mg Take 1 [facility] tartrate 3-20 04-20 n tablet (50 ity of (LOPRESSOR) 00:00: 04:59 mg) by [place] as 50 mg 00 :00 mouth MD tablet twice Anderso daily for n 30 days. [facility] metoprolol 2022- No Hypertensio 50mg Take 1 [facility] tartrate 3-20 04-20 n tablet (50 ity of (LOPRESSOR) 00:00: 04:59 mg) by [place] 50 mg 00 :00 mouth MD tablet twice Anderso daily for n 30 days. [facility] metoprolol 2022- No Hypertensio 50mg Take 1 [facility] tartrate 3-20 04-20 n tablet (50 ity of (LOPRESSOR) 00:00: 04:59 mg) by [place] as 50 mg 00 :00 mouth MD tablet twice Anderso daily for n 30 days. [facility] sucralfate 2022- No Ulcerative 1000mg Take 10 mL [facility] (CARAFATE) 01-18-18 oral (1,000 mg) it y of 100 mg/mL 00:00: 00:00 mucositis by mouth 4 [place] suspension 00 :00 due to (four) antineoplas times a Suraj so tic therapy day. n [facility] UNABLE TO 2022- No Compound Uni vers FIND 01-18 Drug ity of 00:00: 00:00 [place] 00 :00 MD Liane olivier [facility] sucralfate 2022- No Ulcerative 1000mg Take 10 mL [facility] (CARAFATE) 01-1818 oral (1,000 mg) it y of 100 mg/mL 00:00: 00:00 mucositis by mouth 4 [place] suspension 00 :00 due to (four) antineoplas times a Suraj so tic therapy day. n [facility] UNABLE TO 2022- No Compound Uni vers FIND 01-18 Drug ity of 00:00: 00:00 [place] 00 :00 MD Liane olivier [facility] sucralfate 2022- No Ulcerative 1000mg Take 10 mL [facility] (CARAFATE) 3-20 04-18 oral (1,000 mg) it y of 100 mg/mL 00:00: 00:00 mucositis by mouth 4 [place] suspension 00 :00 due to (four) MD kusum benjamin Suraj so tic therapy day. n [facility] UNABLE TO No Compound Uni vers FIND 01-18 Drug ity of 00:00: 00:00 [place] 00 :00 MD Rob [facility] sucralfate 2022- No Ulcerative 1000mg Take 10 mL [facility] (CARAFATE) 01-18 oral (1,000 mg) it y of 100 mg/mL 00:00: 00:00 mucositis by mouth 4 [place] suspension 00 :00 due to (four) MD kusum benjamin Suraj so tic therapy day. n [facility] UNABLE TO No Compound Uni vers FIND 01-18 Drug ity of 00:00: 00:00 [place] 00 :00 MD Rob [facility] sucralfate 2022- No Ulcerative 1000mg Take 10 mL [facility] (CARAFATE) 01-18 oral (1,000 mg) it y of 100 mg/mL 00:00: 00:00 mucositis by mouth 4 [place] suspension 00 :00 due to (four) MD kusum benjamin Suraj so tic therapy day. n [facility] UNABLE TO 2022- No Compound Uni vers FIND 01-18 Drug ity of 00:00: 00:00 [place] 00 :00 MD Rob [facility] sucralfate 2022- No Ulcerative 1000mg Take 10 mL [facility] (CARAFATE) 01-1818 oral (1,000 mg) it y of 100 mg/mL 00:00: 00:00 mucositis by mouth 4 [place] suspension 00 :00 due to (four) MD kusum benjamin Suraj so tic therapy day. [facility] UNABLE TO 2022- No Compound Uni vers FIND 01-18 Drug ity of 00:00: 00:00 [place] 00 :00 MD Rob [facility] sucralfate 2022- No Ulcerative 1000mg Take 10 mL [facility] (CARAFATE) 3-20 04-18 oral (1,000 mg) it y of 100 mg/mL 00:00: 00:00 mucositis by mouth 4 [place] suspension 00 :00 due to (four) MD kusum benjamin Suraj so tic therapy day. n [facility] UNABLE TO Compound Uni vers FIND 01-18 Drug ity of 00:00: 00:00 [place] 00 :00 MD Liane olivier [facility] sucralfate Ulcerative 1000mg Take 10 mL [facility] (CARAFATE) 01-18 oral (1,000 mg) it y of 100 mg/mL 00:00: 00:00 mucositis by mouth 4 [place] suspension 00 :00 due to (four) MD kusum Ruelas so tic therapy day. n [facility] UNABLE TO Compound Uni vers FIND 01-18 Drug ity of 00:00: 00:00 [place] 00 :00 MD Rob [facility] sucralfate Ulcerative 1000mg Take 10 mL [facility] (CARAFATE) 01-18 oral (1,000 mg) it y of 100 mg/mL 00:00: 00:00 mucositis by mouth 4 [place] suspension 00 :00 due to (four) MD kusum Ruelas so tic therapy day. n [facility] UNABLE TO Compound Uni vers FIND 01-18 Drug ity of 00:00: 00:00 [place] 00 :00 MD Rob [facility] oxyCODONE-a No Neoplasm 1{tbl} Take 1 Univers [...] 2 50U Inject 50 Un ally regular [facility] 01-18 diabetes to 125 i ty [...] 00 :12 MD Liane olivier [facility] insulin 2022- No Type 2 50U [...] 14:58 [place] 00 :12 MD Liane olivier [facility] Center insulin 2022- No Type [...] directed. ity o f needle 00:00: 14:58 [place] 00 :12 MD Liane olivier [facility] Center insulin 2022- No Type [...] diabetic 01-18 directed. ity o f needle :: :58 [place] 00 :12 MD Liane olivier [facility] Center insulin 2022- No Type [...] diabetic 01-18 directed. ity o f needle 00:: 14:58 [place] 00 :12 MD Liane olivier [facility] Center insulin 2022- No Type [...] directed. ity o f needle 00:00: 14:58 [place] 00 :12 MD Liane olivier [facility] Center insulin 2022- No Type [...] directed. ity o f needle 00:00: 14:58 [place] 00 :12 MD Liane olivier [facility] Center insulin 2022- No Type [...] directed. ity o f needle 00:00: 14:58 [place] 00 :12 MD Liane olivier [facility] Center insulin 2022- No Type [...] directed. ity o f needle 00:00: 14:58 [place] 00 :12 MD [facility] cyclobenzap 2022- No Cancer 10mg [...] of suspension 00:00: 00:00 mucositis mL by [place] (AMB-CMPD) 00 :00 due to mouth MD [...] of suspension 00:00: 00:00 mucositis mL by [place] (AMB-CMPD) 00 :00 due to mouth MD [...] of suspension 00:00: 00:00 mucositis mL by [place] ([facility]) 00 :00 due to mouth MD [...] of suspension 00:00: 00:00 mucositis mL by [place] ([facility]) 00 :00 due to mouth MD [...] of suspension 00:00: 00:00 mucositis mL by [place] ([facility]) 00 :00 due to mouth MD [...] of suspension 00:00: 00:00 mucositis mL by [place] [facility] due to mouth MD antineoplas [...] of suspension 00:00: 00:00 mucositis mL by [place] [facility] 00 :00 due to mouth MD antineoplas [...] suspension 00:00: 00:00 mucositis mL by [place] [facility] 00 :00 due to mouth MD antineoplas [...] suspension 00:00: 00:00 mucositis mL every 6 [place] (AMB-CMPD) 00 :00 due to (six) MD [...] Suraj so tic therapy day. n Cancer [place] metoprolol 2022- No Hypertensio 50mg Take 1 [...] suspension 00:00: 00:00 mucositis mL every 6 [place] (AMB-CMPD) 00 :00 due to (six) MD antineoplas hours as Bandar rso tic therapy needed for n mouth Cancer pain. [place] oxyCODONE-a 2022- No Neoplasm 1{tbl} Take 1 [...] therapy needed for n mouth Cancer pain. [place] sucralfate 2022- No Ulcerative 1000mg Take 10 mL [facility] (CARAFATE) -18 01-20 oral (1,000 mg) it y of 100 mg/mL 00:00: 00:00 mucositis by mouth 4 [place] suspension 00 :00 due to (four) MD antineoplas times a Suraj so tic therapy day. n [facility] metoprolol 2022- No Hypertensio 50mg Take 1 [facility] tartrate -18 01-20 n tablet (50 ity of (LOPRESSOR) 00:00: 00:00 mg) by [place] as 50 mg 00 :00 mouth MD tablet twice Anderso daily for n 30 days. Cancer [place] sucralfate 2022- No Ulcerative 1000mg Take 10 mL [facility] (CARAFATE) 3-20 -20 oral (1,000 mg) it y of 100 mg/mL 00:00: 00:00 mucositis by mouth 4 [place] suspension 00 :00 due to (four) MD antineoplas times a Suraj so tic therapy day. n Cancer [place] xyloxylin 2022- No Ulcerative 10mL [facility] oral 3-20 -20 oral swallow 10 ity of suspension 00:00: 00:00 mucositis mL every 6 [place] (AMB-CMPD) 00 :00 due to (six) MD antineoplas hours as Bandar rso tic therapy needed for n mouth Cancer pain. [place] oxyCODONE-a 2022- No Neoplasm 1{tbl} Take 1 [...] therapy needed for n mouth Cancer pain. [place] sucralfate 2022- No Ulcerative 1000mg Take 10 mL [facility] (CARAFATE) 3-18 01-20 oral (1,000 mg) it y of 100 mg/mL 00:00: 00:00 mucositis by mouth 4 [place] suspension 00 :00 due to (four) MD antineoplas times a Suraj so tic therapy day. n Cancer [place] metoprolol 2022- No Hypertensio 50mg Take 1 [facility] tartrate -18 01-20 n tablet (50 ity of (LOPRESSOR) 00:00: 00:00 mg) by [place] as 50 mg 00 :00 mouth MD tablet twice Anderso daily for n 30 days. [facility] sucralfate 2022- No Ulcerative 1000mg Take 10 mL [facility] (CARAFATE) 3-18 01-20 oral (1,000 mg) it y of 100 mg/mL 00:00: 00:00 mucositis by mouth 4 [place] suspension 00 :00 due to (four) MD antineoplas times a Suraj so tic therapy day. n Cancer [place] xyloxylin 2022- No Ulcerative 10mL [facility] oral 3-20 -20 oral swallow 10 ity of suspension 00:00: 00:00 mucositis mL every 6 [place] (AMB-CMPD) 00 :00 due to (six) MD antineoplas hours as Bandar rso tic therapy needed for n mouth Cancer pain. [place] oxyCODONE-a 2022- No Neoplasm 1{tbl} Take 1 [...] No Adenocarcin 5mL [facility] (XYLOCAINE) 3- 03-20 yanely of swallow 5 ity of [...] n (painful Cancer swallowing Center ). lidocaine No Adenocarcin 5mL [facility] (XYLOCAINE) 306 03-20 yanely of swallow 5 ity of 20 mg/mL 00:00: 00:00 nasopharynx mL every 6 [place] (2%) 00 :00 (six) MD viscous hours as Anderso solution needed n (painful Cancer swallowing Center ). oxyCODONE-a 2022- No Neoplasm 1{tbl} Take 1 [facility] cetaminophe 3-14 related tablet by ity of n 00:00: [...] Neoplasm 1{tbl} Take 1 [facility] cetaminophe -01 01- related tablet by ity of n [...] Cancer 10mg Take 1 U nivers rine 12-30 03-20 associated tablet (10 it y of (FLEXERIL) 00:00: 00:00 [place] mg[place] 10 mg 00 :00 mouth 3 MD tablet (three) Anderso times a n day as Cancer needed for Center muscle spasms (neck pain). cyclobenzap No Cancer 10mg Take 1 U nivers rine 3- 03-20 associated tablet (10 it y of (FLEXERIL) 00:00: 00:00 [place] mg[place] 10 mg 00 :00 mouth 3 MD tablet (three) Anderso times a n day as Cancer needed for Center muscle spasms (neck pain). cyclobenzap 2022-0 2022- No Cancer 10mg Take 1 U nivers rine 3- 03-20 associated tablet (10 it y of (FLEXERIL) 00:00: 00:00 [place] mg[place] 10 mg 00 :00 mouth 3 MD tablet (three) Anderso times a n day as Cancer needed for Center muscle spasms (neck pain). cyclobenzap 2022-0 2022- No Cancer 10mg Take 1 U nivers rine 3-11 03-20 associated tablet (10 it y of (FLEXERIL) 00:00: 00:00 [place] mg) [place] 10 mg 00 :00 mouth 3 MD tablet (three) Anderso times a n day as Cancer needed for Center muscle spasms (neck pain). cyclobenzap 2022-0 2022- No Cancer 10mg Take [...] for Center muscle spasms (neck pain). cyclobenzap 2022-0 2022- No Cancer 10mg Take 1 U nivers rine 3- 03-20 associated tablet (10 it y of (FLEXERIL) 00:00: 00:00 [place] mg) [place] 10 mg 00 :00 mouth 3 MD tablet (three) Anderso times a n day as Cancer needed for Center muscle spasms (neck pain). cyclobenzap 2022-0 2022- No Cancer 10mg Take [...] as Cancer needed for Center nausea. prochlorper 0 Yes Adenoid 10mg Take 1 U nivers azine 2-16 cystic tablet (10 ity of (Compazine) 00:00: carcinoma mg) by [place] 10 mg 00 of mouth MD tablet nasopharynx every 6 And erso , NOS (six) n hours as Cancer needed for Center nausea or vomiting (if not controlled by Ondansetro n). prochlorper 0 Yes Adenoid 10mg Take 1 U nivers azine 2-16 cystic tablet (10 ity of (Compazine) 00:00: carcinoma mg) by [place] 10 mg 00 of mouth MD tablet nasopharynx every 6 And erso , NOS (six) n hours as Cancer needed for Center nausea or vomiting (if not controlled by Ondansetro n). prochlorper 0 Yes Adenoid 10mg Take 1 U nivers azine 2-16 cystic tablet (10 ity of (Compazine) 00:00: carcinoma mg) by [place] 10 mg 00 of mouth MD tablet nasopharynx every 6 And erso , NOS (six) n hours as Cancer needed for Center nausea or vomiting (if not controlled by Ondansetro n). prochlorper 0 Yes Adenoid 10mg Take 1 U nivers azine 2-16 cystic tablet (10 ity of (Compazine) 00:00: carcinoma mg) by [place] 10 mg 00 of mouth MD tablet nasopharynx every 6 And erso , NOS (six) n hours as Cancer needed for Center nausea or vomiting (if not controlled by Ondansetro n). prochlorper 0 Yes Adenoid 10mg Take 1 U nivers azine 2-16 cystic tablet (10 ity of (Compazine) 00:00: carcinoma mg) by [place] 10 mg 00 of mouth MD tablet nasopharynx every 6 And erso , NOS (six) n hours as Cancer needed for Center nausea or vomiting (if not controlled by Ondansetro n). prochlorper 0 Yes Adenoid 10mg Take 1 U nivers azine 2-16 cystic tablet (10 ity of (Compazine) 00:00: carcinoma mg) by [place] 10 mg 00 of mouth MD tablet nasopharynx every 6 And erso , NOS (six) n hours as Cancer needed for Center nausea or vomiting (if not controlled by Ondansetro n). prochlorper 2023-0 Yes Adenoid 10mg Take 1 U nivers azine 2-16 cystic tablet (10 ity of (Compazine) 00:00: carcinoma mg) by [place] 10 mg 00 of mouth MD tablet nasopharynx every 6 And erso , NOS (six) n hours as Cancer needed for Center nausea or vomiting (if not controlled by Ondansetro n). prochlorper 2023-0 Yes Adenoid 10mg Take 1 U nivers azine 2-16 cystic tablet (10 ity of (Compazine) 00:00: carcinoma mg) by [place] 10 mg 00 of mouth MD tablet nasopharynx every 6 And erso , NOS (six) n hours as Cancer needed for Center nausea or vomiting (if not controlled by Ondansetro n). prochlorper 3-0 Yes Adenoid 10mg Take 1 U nivers azine 2-16 cystic tablet (10 ity of (Compazine) 00:00: carcinoma mg) by [place] 10 mg 00 of mouth MD tablet nasopharynx every 6 And erso , NOS (six) n hours as Cancer needed for Center nausea or vomiting (if not controlled by Ondansetro n). ondansetron 3-0 2022- No Adenoid 8mg Take 1 [facility] (ZOFRAN) 8 12-17 04-06 cystic tablet (8 i ty of mg tablet 00:00: 00:00 carcinoma mg) by [place] 00 :00 of mouth MD nasopharynx every 8 Suraj so , NOS (eight) n hours as Cancer needed for Center nausea or vomiting. ondansetron 3-0 202- No Adenoid 8mg Take 1 [facility] (ZOFRAN) 8 16 04-06 cystic tablet (8 i ty of mg tablet 00:00: 00:00 carcinoma mg) by [place] 00 :00 of mouth MD nasopharynx every 8 Suraj so , NOS (eight) n hours as Cancer needed for Center nausea or vomiting. ondansetron 3-0 2022- No Adenoid 8mg Take 1 [facility] (ZOFRAN) 8 12-17-06 cystic tablet (8 i ty of mg tablet 00:00: 00:00 carcinoma mg) by [place] 00 :00 of mouth MD nasopharynx every [...] mg tablet 00:00: 00:00 carcinoma mg) by [place] 00 :00 of mouth MD nasopharynx every 8 Suraj so , NOS (eight) n hours as Cancer needed for Center nausea or vomiting. ondansetron 2023-0 2023- No Adenoid 8mg Take 1 [facility] (ZOFRAN) 8 12-17- cystic tablet (8 i ty of mg tablet 00:00: 00:00 carcinoma mg) by [place] 00 :00 of mouth MD nasopharynx every 8 Suraj so , NOS (eight) n hours as Cancer needed for Center nausea or vomiting. ondansetron 2023-0 2023- No Adenoid 8mg Take 1 [facility] (ZOFRAN) 8 12-17-06 cystic tablet (8 i ty of mg tablet 00:00: 00:00 carcinoma mg) by [place] 00 :00 of mouth MD nasopharynx every [...] mg tablet 00:00: 00:00 carcinoma mg) by [place] 00 :00 of mouth nasophdano every 8 SurajMYLA clements (eight) n hours as Cancer needed for Center nausea or vomiting. fluoride, 2022- No Adenoid Apply to [facility] sodium, 2-15 03-14 cystic teeth ity of (DENTAGEL) 00:00: 00:00 carcinoma daily for [place] 1.1% dental 00 :00 of 30 days. MD fairchild nasopharynx MYLA Rob n [facility] fluoride, 2022- No Adenoid Apply to [facility] sodium, 2-15 03-14 cystic teeth ity of (DENTAGEL) 00:00: 00:00 carcinoma daily for [place] 1.1% dental 00 :00 of 30 days. MD gurinder arellanoophMYLA Workman n [facility] fluoride, 2022- No Adenoid Apply to [facility] sodium, 2-15 03-14 cystic teeth ity of (DENTAGEL) 00:00: 00:00 carcinoma daily for [place] 1.1% dental 00 :00 of 30 days. MD fairchild nasophMYLA Workman n [facility] fluoride, 2022- No Adenoid Apply to [facility] sodium, 2-15 03-14 cystic teeth ity of (DENTAGEL) 00:00: 00:00 carcinoma daily for [place] 1.1% dental 00 :00 of 30 days. MD fairchild nasophMYLA Workman n [facility] fluoride, 2022- No Adenoid Apply to [facility] sodium, 2-15 03-14 cystic teeth ity of (DENTAGEL) 00:00: 00:00 carcinoma daily for [place] 1.1% dental 00 :00 of 30 days. MD fairchild nasopharynx MYLA Rob n [facility] fluoride, 0 2022- No Adenoid Apply to [facility] sodium, 2-15 03-14 cystic teeth ity of (DENTAGEL) 00:00: 00:00 carcinoma daily for [place] 1.1% dental 00 :00 of 30 days. MD fairchild nasopharynx MYLA Rob n [facility] fluoride, 2022- No Adenoid Apply to [facility] sodium, 2-15 03-14 cystic teeth ity of (DENTAGEL) 00:00: 00:00 carcinoma daily for [place] 1.1% dental 00 :00 of 30 days. MD fairchild nasopharynx MYLA Rob [facility] fluoride, 2022- No Adenoid Apply to [facility] sodium, 12-16 cystic teeth ity of (DENTAGEL) 00:00: 00:00 carcinoma daily for [place] 1.1% dental 00 :00 of 30 days. MD fairchild nasopharynx MYLA Rob [facility] fluoride, 2022- No Adenoid Apply to [facility] sodium, 12-16 cystic teeth ity of (DENTAGEL) 00:00: 00:00 carcinoma daily for [place] 1.1% dental 00 :00 of 30 days. MD gurinder arellanoopharynx MYLA Rob [facility] celecoxib 2022- No Headache, 200mg Take 1 [facility] (CeleBREX) 12-16 not capsule ity o f 200 mg 00:00: 00:00 otherwise (200 mg) [place] capsule 00 :00 specified by mouth daily. [facility] celecoxib 2022- No Headache, 200mg Take 1 [facility] (CeleBREX) 12-16 not capsule ity o f 200 mg 00:00: 00:00 otherwise (200 mg) [place] capsule 00 :00 specified by mouth daily. [facility] celecoxib 2022- No Headache, 200mg Take 1 [facility] (CeleBREX) 12-16 not capsule ity o f 200 mg 00:00: 00:00 otherwise (200 mg) [place] capsule 00 :00 specified by mouth daily. [facility] celecoxib 2022- No Headache, 200mg Take 1 [facility] (CeleBREX) 12-16 not capsule ity o f 200 mg 00:00: 00:00 otherwise (200 mg) [place] capsule 00 :00 specified by mouth daily. [facility] celecoxib 2022- No Headache, 200mg Take 1 [facility] (CeleBREX) 12-16 not capsule ity o f 200 mg 00:00: 00:00 otherwise (200 mg) [place] capsule 00 :00 specified by mouth daily. [facility] celecoxib 2022- No Headache, 200mg Take 1 [facility] (CeleBREX) 12-16 not capsule ity o f 200 mg 00:00: 00:00 otherwise (200 mg) [place] capsule 00 :00 specified by mouth MD daily. [facility] celecoxib 2022- No Headache, 200mg Take 1 [facility] (CeleBREX) 12-16 not capsule ity o f 200 mg 00:00: 00:00 otherwise (200 mg) [place] capsule 00 :00 specified by mouth MD daily. [facility] celecoxib 2022- No Headache, 200mg Take 1 [facility] (CeleBREX) 12-16 not capsule ity o f 200 mg 00:00: 00:00 otherwise (200 mg) [place] capsule 00 :00 specified by mouth MD daily. [facility] celecoxib 2022- No Headache, 200mg Take 1 [facility] (CeleBREX) 12-16 not capsule ity o f 200 mg 00:00: 00:00 otherwise (200 mg) [place] capsule 00 :00 specified by mouth MD daily. [facility] Victoza Yes Type 2 1.8mg Inject 0.3 U nivers 2-Patrick 0.6 2-14 diabetes mL (1.8 ity of mg/0.1 mL 00:00: mellitus mg) under [place] (18 mg/3 00 without the skin MD mL) pnij complicatio daily. An derso injection [facility] Victoza Yes Type 2 1.8mg Inject 0.3 U nivers 2-Patrick 0.6 2-14 diabetes mL (1.8 ity of mg/0.1 mL 00:00: mellitus mg) under [place] (18 mg/3 00 without the skin MD mL) pnij complicatio daily. An derso injection [facility] Victoza Yes Type 2 1.8mg Inject 0.3 U nivers 2-Patrick 0.6 2-14 diabetes mL (1.8 ity of mg/0.1 mL 00:00: mellitus mg) under [place] (18 mg/3 00 without the skin MD mL) pnij complicatio daily. [facility] Yes Type 2 1.8mg Inject 0.3 U nivers 2-Patrick 0.6 2-14 diabetes mL (1.8 ity of mg/0.1 mL 00:00: mellitus mg) under [place] (18 mg/3 00 without the skin MD mL) pnij complicatio daily. [facility] Yes Type 2 1.8mg Inject 0.3 U nivers 2-Patrick 0.6 2-14 diabetes mL (1.8 ity of mg/0.1 mL 00:00: mellitus mg) under [place] (18 mg/3 00 without the skin MD mL) pnij complicatio daily. [facility] Yes Type 2 1.8mg Inject 0.3 U nivers 2-Patrick 0.6 2-14 diabetes mL (1.8 ity of mg/0.1 mL 00:00: mellitus mg) under [place] (18 mg/3 00 without the skin MD mL) pnij complicatio daily. [facility] Yes Type 2 1.8mg Inject 0.3 U nivers 2-Patrick 0.6 2-14 diabetes mL (1.8 ity of mg/0.1 mL 00:00: mellitus mg) under [place] (18 mg/3 00 without the skin MD mL) pnij complicatio daily. [facility] Yes Type 2 1.8mg Inject 0.3 U nivers 2-Patrick 0.6 2-14 diabetes mL (1.8 ity of mg/0.1 mL 00:00: mellitus mg) under [place] (18 mg/3 00 without the skin MD mL) pnij complicatio daily. [facility] Yes Type 2 1.8mg Inject 0.3 U nivers 2-Patrick 0.6 2-14 diabetes mL (1.8 ity of mg/0.1 mL 00:00: mellitus mg) under [place] (18 mg/3 00 without the skin MD mL) pnij complicatio daily. [facility] Devorah 2nd 2022- No Type 2 1{devic [...] MD every 8 [place] (eight) n hours. [address] 2022- No Type 2 1{devic Inject 1 [facility] Gen Pen 12-15 diabetes e} Device ity o f Needle 32 00:00: 00:00 mellitus under the [place] gauge x 00 :00 without skin 3 MD " ndle complicatio (three) Anderso n times a n day before Cancer meals. [place] gabapentin 2022- No Headache, 600mg Take 1 [facility] (NEURONTIN) 12-15 not tablet ity o f 600 mg 00:00: 00:00 otherwise (600 mg) [place] tablet 00 :00 specified by mouth MD every 8 Anderso (eight) n hours. [address] 2022- No Type 2 1{devic Inject 1 [facility] Gen Pen 12-15 diabetes e} Device ity o f Needle 32 00:00: 00:00 mellitus under the [place] gauge x 00 :00 without skin 3 MD 32" ndle complicatio (three) Anderso n times a n day before Cancer meals. [place] gabapentin 2022- No Headache, 600mg Take 1 [facility] (NEURONTIN) 12-15 not tablet ity o f 600 mg 00:00: 00:00 otherwise (600 mg) [place] tablet 00 :00 specified by mouth MD every 8 [place]o (eight) n hours. Cancer [address] 2022- No Type 2 1{devic Inject 1 [facility] Gen Pen 12-15 diabetes e} Device ity o f Needle 32 00:00: 00:00 mellitus under the [place] gauge x 00 :00 without skin 3 MD 32" ndle complicatio (three) Anderso n times a n day before Cancer meals. [place] gabapentin 2022- No Headache, 600mg Take 1 [facility] (NEURONTIN) 12-15 not tablet ity o f 600 mg 00:00: 00:00 otherwise (600 mg) [place] tablet 00 :00 specified by mouth MD every 8 Anderso (eight) n hours. Cancer [facility] 2022- No Type 2 1{devic Inject 1 [facility] Gen Pen 12-15 diabetes e} Device ity o f Needle 32 00:00: 00:00 mellitus under the [place] gauge x 00 :00 without skin 3 " ndle complicatio (three) Anderso n times a n day before Cancer meals. [place] gabapentin 2022- No Headache, 600mg Take 1 [facility] (NEURONTIN) 12-15 not tablet ity o f 600 mg 00:00: 00:00 otherwise (600 mg) [place] tablet 00 :00 specified by mouth MD every 8 Anderso (eight) n hours. Cancer [facility] 2022- No Type 2 1{devic Inject 1 [facility] Gen Pen 12-15 diabetes e} Device ity o f Needle 32 00:00: 00:00 mellitus under the [place] gauge x 00 :00 without skin 3 32" ndle complicatio (three) Anderso n times a n day before Cancer meals. [place] gabapentin 2022- No Headache, 600mg Take 1 [facility] (NEURONTIN) 12-15 not tablet ity o f 600 mg 00:00: 00:00 otherwise (600 mg) [place] tablet 00 :00 specified by mouth MD every 8 Anderso (eight) n hours. Cancer [facility] 2022- No Type 2 1{devic Inject 1 [facility] Gen Pen 12-15 diabetes e} Device ity o f Needle 32 00:00: 00:00 mellitus under the [place] gauge x 00 :00 without skin 3 MD 32" ndle complicatio (three) Anderso n times a n day before Cancer meals. [place] gabapentin 2022- No Headache, 600mg Take 1 [facility] (NEURONTIN) 12-15 not tablet ity o f 600 mg 00:00: 00:00 otherwise (600 mg) [place] tablet 00 :00 specified by mouth MD every 8 Anderso (eight) n hours. Cancer [facility] Devorah 2nd 2022- No Type 2 1{devic Inject 1 [facility] Gen Pen 12-15 diabetes e} Device ity o f Needle 32 00:00: 00:00 mellitus under the [place] gauge x 00 :00 without skin 3 MD " ndle complicatio (three) Anderso n times a n day before Cancer meals. [place] gabapentin 2022- No Headache, 600mg Take 1 [facility] (NEURONTIN) 12-15 not tablet ity o f 600 mg 00:00: 00:00 otherwise (600 mg) [place] tablet 00 :00 specified by mouth MD every 8 Anderso (eight) n hours. [facility] Devorah 2nd 2022- No Type 2 1{devic Inject 1 [facility] Gen Pen 12-15 diabetes e} Device ity o f Needle 32 00:00: 00:00 mellitus under the [place] gauge x 00 :00 without skin 3 MD " ndle complicatio (three) Anderso n times a n day before Cancer meals. [place] gabapentin 2022- No Headache, 600mg Take 1 [facility] (NEURONTIN) 12-15 not tablet ity o f 600 mg 00:00: 00:00 otherwise (600 mg) [place] tablet 00 :00 specified by mouth MD every 8 Anderso (eight) n hours. Cancer [place] metoprolol 2022- No Hypertensio 50mg Take 1 [facility] tartrate 12-15- n tablet (50 ity of (LOPRESSOR) 00:00: 00:00 mg) by [place] as 50 mg 00 :00 mouth MD tablet twice Anderso daily for n 30 days. Cancer [place] insulin 2022- No Type 2 110U Inject [...] metoprolol Hypertensio 50mg Take 1 [facility] tartrate 214 -20 n tablet (50 ity of (LOPRESSOR) 00:00: 00:00 mg) by [place] as 50 mg 00 :00 mouth MD tablet twice [place] daily for n 30 days. [facility] insulin 2022- No Type 2 110U [...] metoprolol Hypertensio 50mg Take 1 [facility] tartrate 2-20 n tablet (50 ity of (LOPRESSOR) 00:00: 00:00 mg) by [place] as 50 mg 00 :00 mouth MD tablet twice [place] daily for n 30 days. [facility] insulin 2022- No Type 2 110U Inject Unive rs regular hum 2-12 01-20 diabetes 110-160 ity of U-500 conc 00:00: 00:00 mellitus Units [place] (HumuLIN R 00 :00 without under the M D U-500, complicatio skin 3 [facility] rso Conc, n (three) n Kwikpen) times a Cancer 500 unit/mL day before Ce nter (3 mL) meals. insulin pen metoprolol Hypertensio 50mg Take 1 [facility] tartrate 2-14 03-20 n tablet (50 ity of (LOPRESSOR) 00:00: 00:00 mg) by [place] as 50 mg 00 :00 mouth MD tablet twice [place] daily for n 30 days. [facility] insulin 2022- No Type 2 110U Inject Unive rs regular hum 2-14 03-20 diabetes 110-160 ity of U-500 conc 00:00: [...] twice [place] daily for n 30 days. [facility] insulin No Type 2 110U Inject [...] twice [place] daily for n 30 days. [facility] insulin No Type 2 110U Inject [...] No Hypertensio 50mg Take 1 [facility] tartrate 2-20 n tablet (50 ity of (LOPRESSOR) 00:00: 00:00 mg) by [place] as 50 mg 00 :00 mouth MD tablet twice [place] daily for n 30 days. [facility] insulin 2022- No Type 2 110U [...] twice [place]o daily for n 30 days. [facility] insulin 2022- No Type 2 110U [...] twice Anderso daily for n 30 days. [facility] insulin 2022- No Type 2 110U [...] Neoplasm 1{tbl} Take 1 [facility] cetaminophe 2-14 01-01 related tablet by ity of n 00:00: 00:00 pain mouth [place] (Percocet) 00 :00 (acute) every 4 MD 5 mg-325 mg (chronic) (four) A nderso per tablet hours as n needed for Cancer moderate Center pain. oxyCODONE-a 2022- No Neoplasm 1{tbl} Take 1 [facility] cetaminophe 2-14 01-01 related tablet by ity of n 00:00: 00:00 pain mouth [place] (Percocet) 00 :00 (acute) every 4 MD 5 mg-325 mg (chronic) (four) A nderso per tablet hours as n needed for Cancer moderate Center pain. oxyCODONE-a 2022- No Neoplasm 1{tbl} Take 1 [facility] cetaminophe 2-01-01 related tablet by ity of n 00:00: 00:00 pain mouth [place] (Percocet) 00 :00 (acute) every 4 MD 5 mg-325 mg (chronic) (four) A nderso per tablet hours as n needed for Cancer moderate Center pain. oxyCODONE-a 2022- No Neoplasm 1{tbl} Take 1 [facility] cetaminophe 2-14 01-01 related tablet by ity of n 00:00: 00:00 pain mouth [place] (Percocet) 00 :00 (acute) every 4 MD 5 mg-325 mg (chronic) (four) A nderso per tablet hours as n needed for Cancer moderate Center pain. oxyCODONE-a 2022- No Neoplasm 1{tbl} Take 1 [facility] cetaminophe 2-14 01-01 related tablet by ity of n [...] 00 :00 disease mouth MD tablet every [place] morning n before Cancer breakfast Center for [...] twice [place] daily. n Cancer Center dexamethaso 2022- No Adenocarcin 2mg Take 1 [facility] ne 12-05 03-14 yanely of tablet (2 ity of (DECADRON) 00:00: 00:00 nasopharynx mg) by [place] 2 mg tablet 00 :00 mouth MD twice Anderso daily. [facility] dexamethaso 2022- No Adenocarcin 2mg Take 1 [facility] ne 2-04 03-14 yanely of tablet (2 ity of (DECADRON) 00:00: 00:00 nasopharynx mg) by [place] 2 mg tablet 00 :00 mouth MD twice Anderso daily. [facility] dexametho 2022- No Adenocarcin 2mg Take 1 [facility] ne 2- 03-14 yanely of tablet (2 ity of (DECADRON) 00:00: 00:00 nasopharynx mg) by [place] 2 mg tablet 00 :00 mouth MD twice Anderso daily. [facility] dexametho 2022- No Adenocarcin 2mg Take 1 [facility] ne 2- 03-14 yanely of tablet (2 ity of (DECADRON) 00:00: 00:00 nasopharynx mg) by [place] 2 mg tablet 00 :00 mouth MD twice Anderso daily. [facility] dexametho 2022- No Adenocarcin 2mg Take 1 [facility] ne 2- 03-14 yanely of tablet (2 ity of (DECADRON) 00:00: 00:00 nasopharynx mg) by [place] 2 mg tablet 00 :00 mouth MD twice Anderso daily. [facility] dexametho 2022- No Adenocarcin 2mg Take 1 [facility] ne 2-04 03-14 yanely of tablet (2 ity of (DECADRON) 00:00: 00:00 nasopharynx mg) by [place] 2 mg tablet 00 :00 mouth MD twice Anderso daily. [facility] dexametho 2022- No Adenocarcin 2mg Take 1 [facility] ne 2-04 03-14 yanely of tablet (2 ity of (DECADRON) 00:00: 00:00 nasopharynx mg) by [place] 2 mg tablet 00 :00 mouth MD twice Anderso daily. [facility] dexametho 2022- No Adenocarcin 2mg Take 1 Univers ne 2-04 03-14 yanely of tablet (2 ity of (DECADRON) 00:00: 00:00 nasopharynx mg) by [place] 2 mg tablet 00 :00 mouth MD twice Anders[place] daily. n Cancer Center HYDROmorpho 2023-0 2023- No Adenocarcin 2mg Take [...] as Cancer needed Center (cancer pain). HYDROmorpho 202-0 202- No Adenocarcin 2mg Take 1 [...] as Cancer needed Center (cancer pain). ondansetron 2022-2022- No Adenocarcin 8mg Dissolve 1 [...] Indication s: chronic pain colchicine 2022-0 Yes [id number] .6mg Take 1 U nivers 0.6 mg 1-18 tablet by ity of tablet 00:00: mouth in [place] the Medical morning. Branch HYDROcodone 2022-0 Yes 2745 1{tbl} Take 1 Un ally -acetaminop 1-18 tablet by ity of hen 7.5-325 00:00: mouth [place] mg per 00 every 6 Medical tablet (six) Branch hours as needed for Pain. Indication s: chronic pain colchicine 2022-0 Yes [id number] .6mg Take 1 U nivers 0.6 mg 1-18 tablet by ity of tablet 00:00: mouth in [place] 00 the Medical morning. Branch colchicine 2022-0 Yes [id number] .6mg Take 1 U nivers 0.6 mg 1-18 tablet by ity of tablet 00:00: mouth in [place] 00 the Medical morning. Branch colchicine 3-0 Yes [id number] .6mg Take 1 U nivers 0.6 mg 1-18 tablet by ity of tablet 00:00: mouth in [place] 00 the Medical morning. Branch colchicine 3-0 Yes [id number] .6mg Take 1 U nivers 0.6 mg 1-18 tablet by ity of tablet 00:00: mouth in [place] 00 the Medical morning. Branch colchicine 3-0 Yes [id number] .6mg Take 1 U nivers 0.6 mg 1-18 tablet by ity of tablet 00:00: mouth in [place] 00 the Medical morning. Branch colchicine 3-0 Yes [id number] .6mg Take 1 U nivers 0.6 mg 1-18 tablet by ity of tablet 00:00: mouth in [place] the Medical morning. Branch colchicine 2022-0 Yes [id number] .6mg Take 1 U nivers 0.6 mg 1-18 tablet by ity of tablet 00:00: mouth in [place] the Medical morning. Branch colchicine 2022-0 Yes [id number] .6mg Take 1 U nivers 0.6 mg 1-18 tablet by ity of tablet 00:00: mouth in [place] the Medical morning. Branch colchicine 2022-0 Yes [id number] .6mg Take 1 U nivers 0.6 mg 1-18 tablet by ity of tablet 00:00: mouth in [place] the Medical morning. Branch colchicine 2022-0 Yes [id number] .6mg Take 1 U nivers 0.6 mg 1-18 tablet by ity of tablet 00:00: mouth in [place] the Medical morning. Branch colchicine 2022-0 Yes [id number] .6mg Take 1 U nivers 0.6 mg 1-18 tablet by ity of tablet 00:00: mouth in [place] the Medical morning. Branch colchicine 2022-0 Yes [id number] .6mg Take 1 U nivers 0.6 mg 1-18 tablet by ity of tablet 00:00: mouth in [place] the Medical morning. Branch colchicine 2022-0 Yes [id number] .6mg Take 1 U nivers 0.6 mg 1-18 tablet by ity of tablet 00:00: mouth in [place] the Medical morning. Branch colchicine 2022-0 Yes [id number] .6mg Take 1 U nivers 0.6 mg 1-18 tablet by ity of tablet 00:00: mouth in [place] the Medical morning. Branch colchicine 2022-0 Yes [id number] .6mg Take 1 U nivers 0.6 mg 1-18 tablet by ity of tablet 00:00: mouth in [place] the Medical morning. Branch HYDROcodone 2022-2022- No [...] :00 (70-30) [place]o injection n [facility] 2023-0 Yes [id number] 12.5mg TAKE 1 Univers THIAZIDE 1-09 CAPSULE BY ity o f 12.5 mg 00:00: MOUTH [place] capsule 00 DAILY Medical Branch LISINOPRIL 2023-0 Yes [id number] TAKE 1/2 Univers 40 mg 1-09 TABLET BY ity of tablet 00:00: MOUTH [place] 00 TWICE Medical DAILY Branch HYDRALAZINE 2023-0 Yes [id number] TAKE 1 [facility] 100 mg 1-09 TABLET BY ity of tablet 00:00: MOUTH [place] 00 THREE Medical TIMES Branch DAILY HYDROCHLORO 3-0 Yes [id number] 12.5mg TAKE 1 [facility] THIAZIDE 1-09 CAPSULE BY ity o f 12.5 mg 00:00: MOUTH [place] capsule 00 DAILY Medical Branch LISINOPRIL 3-0 Yes [id number] TAKE 1/2 [facility] 40 mg 1-09 TABLET BY ity of tablet 00:00: MOUTH [place] 00 TWICE Medical DAILY Branch HYDRALAZINE 3-0 Yes [id number] TAKE 1 [facility] 100 mg 1-09 TABLET BY ity of tablet 00:00: MOUTH [place] 00 THREE Medical TIMES Branch DAILY HYDROCHLORO 3-0 Yes [id number] 12.5mg TAKE 1 [facility] THIAZIDE 1-09 CAPSULE BY ity o f 12.5 mg 00:00: MOUTH [place] capsule 00 DAILY Medical Branch LISINOPRIL 3-0 Yes [id number] TAKE 1/2 [facility] 40 mg 1-09 TABLET BY ity of tablet 00:00: MOUTH [place] 00 TWICE Medical DAILY Branch HYDRALAZINE 3-0 Yes [id number] TAKE 1 [facility] 100 mg 1-09 TABLET BY ity of tablet 00:00: MOUTH [place] 00 THREE Medical TIMES Branch DAILY HYDROCHLORO 3-0 Yes [id number] 12.5mg TAKE 1 [facility] THIAZIDE 1-09 CAPSULE BY ity o f 12.5 mg 00:00: MOUTH [place] capsule 00 DAILY Medical Branch LISINOPRIL 2023-0 Yes [id number] TAKE 1/2 [facility] 40 mg 1-09 TABLET BY ity of tablet 00:00: MOUTH [place] 00 TWICE Medical DAILY Branch HYDRALAZINE 2023-0 Yes [id number] TAKE 1 [facility] 100 mg 1-09 TABLET BY ity of tablet 00:00: MOUTH [place] 00 THREE Medical TIMES Branch DAILY HYDROCHLORO 2023-0 Yes [id number] 12.5mg TAKE 1 [facility] THIAZIDE 1-09 CAPSULE BY ity o f 12.5 mg 00:00: MOUTH [place] capsule 00 DAILY Medical Branch LISINOPRIL 2023-0 Yes [id number] TAKE 1/2 [facility] 40 mg 1-09 TABLET BY ity of tablet 00:00: MOUTH [place] 00 TWICE Medical DAILY Branch HYDRALAZINE 2023-0 Yes [id number] TAKE 1 [facility] 100 mg 1-09 TABLET BY ity of tablet 00:00: MOUTH [place] 00 THREE Medical TIMES Branch DAILY HYDROCHLORO 2023-0 Yes [id number] 12.5mg TAKE 1 [facility] THIAZIDE 1-09 CAPSULE BY ity o f 12.5 mg 00:00: MOUTH [place] capsule 00 DAILY Medical Branch LISINOPRIL 3-0 Yes [id number] TAKE 1/2 [facility] 40 mg 1-09 TABLET BY ity of tablet 00:00: MOUTH [place] 00 TWICE Medical DAILY Branch HYDRALAZINE 3-0 Yes [id number] TAKE 1 [facility] 100 mg 1-09 TABLET BY ity of tablet 00:00: MOUTH [place] 00 THREE Medical TIMES Branch DAILY HYDROCHLORO 3-0 Yes [id number] 12.5mg TAKE 1 [facility] THIAZIDE 1-09 CAPSULE BY ity o f 12.5 mg 00:00: MOUTH [place] capsule 00 DAILY Medical Branch LISINOPRIL 2023-0 Yes [id number] TAKE 1/2 [facility] 40 mg 1-09 TABLET BY ity of tablet 00:00: MOUTH [place] 00 TWICE Medical DAILY Branch HYDRALAZINE 3-0 Yes [id number] TAKE 1 [facility] 100 mg 1-09 TABLET BY ity of tablet 00:00: MOUTH [place] 00 THREE Medical TIMES Branch DAILY HYDROCHLORO 2023-0 Yes [id number] 12.5mg TAKE 1 [facility] THIAZIDE 1-09 CAPSULE BY ity o f 12.5 mg 00:00: MOUTH [place] capsule 00 DAILY Medical Branch LISINOPRIL 2023-0 Yes [id number] TAKE 1/2 [facility] 40 mg 1-09 TABLET BY ity of tablet 00:00: MOUTH [place] 00 TWICE Medical DAILY Branch HYDRALAZINE 2023-0 Yes [id number] TAKE 1 [facility] 100 mg 1-09 TABLET BY ity of tablet 00:00: MOUTH [place] 00 THREE Medical TIMES Branch DAILY HYDROCHLORO 2023-0 Yes [id number] 12.5mg TAKE 1 [facility] THIAZIDE 1-09 CAPSULE BY ity o f 12.5 mg 00:00: MOUTH [place] capsule 00 DAILY Medical Branch LISINOPRIL 2023-0 Yes [id number] TAKE 1/2 [facility] 40 mg 1-09 TABLET BY ity of tablet 00:00: MOUTH [place] 00 TWICE Medical DAILY Branch HYDRALAZINE 3-0 Yes [id number] TAKE 1 [facility] 100 mg 1-09 TABLET BY ity of tablet 00:00: MOUTH [place] 00 THREE Medical TIMES Branch DAILY HYDROCHLORO 3-0 Yes [id number] 12.5mg TAKE 1 [facility] THIAZIDE 1-09 CAPSULE BY ity o f 12.5 mg 00:00: MOUTH [place] capsule 00 DAILY Medical Branch LISINOPRIL 2022-0 Yes [id number] TAKE 1/2 [facility] 40 mg 1-09 TABLET BY ity of tablet 00:00: MOUTH [place] 00 TWICE Medical DAILY Branch HYDRALAZINE 2022-0 Yes [id number] TAKE 1 [facility] 100 mg 1-09 TABLET BY ity of tablet 00:00: MOUTH [place] 00 THREE Medical TIMES Branch DAILY HYDROCHLORO 2022-0 Yes [id number] 12.5mg TAKE 1 [facility] THIAZIDE 1-09 CAPSULE BY ity o f 12.5 mg 00:00: MOUTH [place] capsule 00 DAILY Medical Branch LISINOPRIL 2022-0 Yes [id number] TAKE 1/2 [facility] 40 mg 1-09 TABLET BY ity of tablet 00:00: MOUTH [place] 00 TWICE Medical DAILY Branch HYDRALAZINE 2022-0 Yes [id number] TAKE 1 [facility] 100 mg 1-09 TABLET BY ity of tablet 00:00: MOUTH [place] 00 THREE Medical TIMES Branch DAILY HYDROCHLORO 3-0 Yes [id number] 12.5mg TAKE 1 [facility] THIAZIDE 1-09 CAPSULE BY ity o f 12.5 mg 00:00: MOUTH [place] capsule 00 DAILY Medical Branch LISINOPRIL 3-0 Yes [id number] TAKE 1/2 [facility] 40 mg 1-09 TABLET BY ity of tablet 00:00: MOUTH [place] 00 TWICE Medical DAILY Branch HYDRALAZINE 3-0 Yes [id number] TAKE 1 [facility] 100 mg 1-09 TABLET BY ity of tablet 00:00: MOUTH [place] 00 THREE Medical TIMES Branch DAILY HYDROCHLORO 3-0 Yes [id number] 12.5mg TAKE 1 [facility] THIAZIDE 1-09 CAPSULE BY ity o f 12.5 mg 00:00: MOUTH [place] capsule 00 DAILY Medical Branch LISINOPRIL 3-0 Yes [id number] TAKE 1/2 [facility] 40 mg 1-09 TABLET BY ity of tablet 00:00: MOUTH [place] 00 TWICE Medical DAILY Branch HYDRALAZINE 2023-0 Yes [id number] TAKE 1 [facility] 100 mg 1-09 TABLET BY ity of tablet 00:00: MOUTH [place] 00 THREE Medical TIMES Branch DAILY HYDROCHLORO 2023-0 Yes [id number] 12.5mg TAKE 1 [facility] THIAZIDE 1-09 CAPSULE BY ity o f 12.5 mg 00:00: MOUTH [place] capsule 00 DAILY Medical Branch LISINOPRIL 2023-0 Yes [id number] TAKE 1/2 [facility] 40 mg -09 TABLET BY ity of tablet 00:00: MOUTH [place] 00 TWICE Medical DAILY Branch HYDROCHLORO 2023-0 Yes [id number] 12.5mg TAKE 1 [facility] THIAZIDE 1-09 CAPSULE BY ity o f 12.5 mg 00:00: MOUTH [place] capsule 00 DAILY Medical Branch LISINOPRIL 2023-0 Yes [id number] TAKE 1/2 [facility] 40 mg -09 TABLET BY ity of tablet 00:00: MOUTH [place] 00 TWICE Medical DAILY Branch HYDROCHLORO 2023-0 Yes [id number] 12.5mg TAKE 1 [facility] THIAZIDE 1-09 CAPSULE BY ity o f 12.5 mg 00:00: MOUTH [place] capsule 00 DAILY Medical Branch HYDROCHLORO 2023-0 Yes [id number] 12.5mg TAKE 1 [facility] THIAZIDE 1-09 CAPSULE BY ity o f 12.5 mg 00:00: MOUTH [place] capsule 00 DAILY Medical Branch HYDROCHLORO 2023-0 Yes [id number] 12.5mg TAKE 1 [facility] THIAZIDE 1-09 CAPSULE BY ity o f 12.5 mg 00:00: MOUTH [place] capsule 00 DAILY Medical Branch HYDROCHLORO 2023-0 Yes [id number] 12.5mg TAKE 1 [facility] THIAZIDE 1-09 CAPSULE BY ity o f 12.5 mg 00:00: MOUTH [place] capsule 00 DAILY Medical Branch LISINOPRIL 2023-0 2023- No [id number] TAKE 1/2 [facility] 40 mg 11-09 08-07 TABLET BY ity of tablet 00:00: 00:00 MOUTH [place] 00 :00 TWICE Medical DAILY Branch HYDRALAZINE 2023-0 2023- No [id number] TAKE 1 [facility] 100 mg 11-09 07- TABLET BY ity of tablet 00:00: 00:00 MOUTH [place] 00 :00 THREE Medical TIMES Branch DAILY hydroCHLORO 2023-0 3- No 12.5mg 1 capsule [facility] thiazide 11-0923 (12.5 mg) ity o f (MICROZIDE) 00:00: [place] 12.5 mg 00 :00 morning. capsule [facility] hydroCHLORO 2022- No 12.5mg 1 capsule [facility] thiazide 11-0923 (12.5 mg) ity o f (MICROZIDE) 00:00: [place]:00 [place] 12.5 mg 00 :00 morning. capsule [facility] hydroCHLORO 2022- No 12.5mg 1 capsule [facility] thiazide 11-09 (12.5 mg) ity o f (MICROZIDE) 00:00: [place]:00 [place] 12.5 mg 00 :00 morning. capsule [facility] hydroCHLORO 2022- No 12.5mg 1 capsule [facility] thiazide 11-09 (12.5 mg) ity o f (MICROZIDE) 00:00: [place]:00 [place] 12.5 mg 00 :00 morning. MD restrepo [facility] hydroCHLORO 2022- No 12.5mg 1 capsule [facility] thiazide 11-09 (12.5 mg) ity o f (MICROZIDE) 00:00: 00:00 [place] 12.5 mg 00 :00 morning. MD restrepo [facility] hydroCHLORO 2022- No 12.5mg 1 capsule [facility] thiazide 11-0923 (12.5 mg) ity o f (MICROZIDE) 00:00: 00:00 [place] 12.5 mg 00 :00 morning. MD restrepo [facility] hydroCHLORO 2022- No 12.5mg 1 capsule [facility] thiazide 11-0923 (12.5 mg) ity o f (MICROZIDE) 00:00: 00:00 [place] 12.5 mg 00 :00 morning. MD restrepo [facility] hydroCHLORO 2022- No 12.5mg 1 capsule [facility] thiazide 11-0923 (12.5 mg) ity o f (MICROZIDE) 00:00: 00:00 [place] 12.5 mg 00 :00 morning. MD capsule [facility] hydroCHLORO 2022- No 12.5mg 1 capsule [facility] thiazide 11-09 (12.5 mg) ity o f (MICROZIDE) 00:00: [place]:00 [place] 12.5 mg 00 :00 morning. MD capsule [facility] cloNIDine 2022-2022- No TAKE 1 Unive rs HCl 11-09-20 TABLET BY ity of (CATAPRES) 00:00: 00:00 MOUTH [place] 0.2 mg 00 :00 THREE MD tablet TIMES [facility] cloNIDine 2022- No TAKE 1 Unive rs HCl 11-09-20 TABLET BY ity of (CATAPRES) 00:00: 00:00 MOUTH [place] 0.2 mg 00 :00 THREE MD tablet TIMES [facility] cloNIDine 2022-2022- No TAKE 1 Unive rs HCl 11-09-20 TABLET BY ity of (CATAPRES) 00:00: 00:00 MOUTH [place] 0.2 mg 00 :00 THREE MD tablet TIMES [facility]ILY [facility] cloNIDine 2022-2022- No TAKE 1 Unive rs HCl 11-09-20 TABLET BY ity of (CATAPRES) 00:00: 00:00 MOUTH [place] 0.2 mg 00 :00 THREE MD tablet TIMES [facility]ILY [facility] cloNIDine 2022-2022- No TAKE 1 Unive rs HCl 11-09-20 TABLET BY ity of (CATAPRES) 00:00: 00:00 MOUTH [place] 0.2 mg 00 :00 THREE MD tablet TIMES [facility]ILY [facility] cloNIDine 2022-2022- No TAKE 1 Unive rs HCl 11-09-20 TABLET BY ity of (CATAPRES) 00:00: 00:00 MOUTH [place] 0.2 mg 00 :00 THREE MD tablet TIMES [facility] cloNIDine 2022-2022- No TAKE 1 Unive rs HCl 11-09-20 TABLET BY ity of (CATAPRES) 00:00: 00:00 MOUTH [place] 0.2 mg 00 :00 THREE MD tablet TIMES [facility]ILY [facility] cloNIDine 2022- No TAKE 1 Unive rs HCl 11-0920 TABLET BY ity of (CATAPRES) 00:00: 00:00 MOUTH [place] 0.2 mg 00 :00 THREE MD tablet TIMES [facility] DAILY n [facility] [place] cloNIDine 2022- No TAKE 1 Unive rs HCl 11-0920 TABLET BY ity of (CATAPRES) 00:00: 00:00 MOUTH [place] 0.2 mg 00 :00 THREE MD tablet TIMES [facility] DAILY n [facility] [place] hydrocortis 2022- No UNWRAP AND [facility] one 11-06 INSERT ONE ity of (ANUSOL-HC) 00:00: 00:00 (1) [place] 25 mg 00 :00 SUPPOSITOR MD suppository Y IN THE [place] [employer] RECTUM n TWICE A Cancer DAY. [place] hydrocortis 2022- No UNWRAP AND [facility] one 11-06 INSERT ONE ity of (ANUSOL-HC) 00:00: 00:00 (1) [place] 25 mg 00 :00 SUPPOSITOR MD suppository Y IN THE [place] RECTUM n TWICE A Cancer DAY. [place] hydrocortis 2022- No UNWRAP AND [facility] one 11-06 INSERT ONE ity of (ANUSOL-HC) 00:00: 00:00 (1) [place] 25 mg 00 :00 SUPPOSITOR MD suppository Y IN THE [place] RECTUM n TWICE A Cancer DAY. [place] hydrocortis 2022- No UNWRAP AND [facility] one 11-06 INSERT ONE ity of (ANUSOL-HC) 00:00: 00:00 (1) [place] 25 mg 00 :00 SUPPOSITOR MD suppository Y IN THE [place] RECTUM n TWICE A Cancer DAY. [place] hydrocortis 2022- No UNWRAP AND [facility] one 11-06 INSERT ONE ity of (ANUSOL-HC) 00:00: 00:00 (1) [place] 25 mg 00 :00 SUPPOSITOR MD suppository Y IN THE [place] RECTUM n TWICE A Cancer DAY. [place] hydrocortis 2022- No UNWRAP AND [facility] one 11-06 INSERT ONE ity of (ANUSOL-HC) 00:00: 00:00 (1) [place] 25 mg 00 :00 SUPPOSITOR MD suppository Y IN THE [place] RECTUM n [facility] one 11-06 INSERT ONE ity of (ANUSOL-HC) 00:00: 00:00 (1) [place] 25 mg 00 :00 SUPPOSITOR MD suppository Y IN THE [place] RECTUM n [facility] AND [facility] one 11-06 INSERT ONE ity of (ANUSOL-HC) 00:00: 00:00 (1) [place] 25 mg 00 :00 SUPPOSITOR MD suppository Y IN THE [place] RECTUM n TWICE A Cancer DAY. [facility] 2022- No UNWRAP AND Univers one 11-06 INSERT ONE ity of (ANUSOL-HC) 00:00: 00:00 (1) [place] 25 mg 00 :00 SUPPOSITOR MD suppository Y IN THE [place] RECTUM n TWICE A Cancer DAY. [place] METOPROLOL Yes TAKE 1 Unive rs TARTRATE [...] 2022- No TAKE 1 Univ ers tartrate 1-12-15 TABLET BY ity o f (LOPRESSOR) 00:00: 00:[place]TH [place] 100 mg 00 :00 TWICE MD tablet DAILY [facility] metoprolol 2022- No TAKE 1 Univ ers tartrate 11-03 TABLET BY ity o f (LOPRESSOR) 00:00: 00:[place]TH [place] 100 mg 00 :00 TWICE MD tablet DAILY [facility] metoprolol 2022- No TAKE 1 Univ ers tartrate 11-03 TABLET BY ity o f (LOPRESSOR) 00:00: 00:00 MOUTH [place] 100 mg 00 :00 TWICE MD tablet DAILY [facility] metoprolol 2022- No TAKE 1 Univ ers tartrate 11-03 TABLET BY ity o f (LOPRESSOR) 00:00: 00:00 MOUTH [place] 100 mg 00 :00 TWICE MD tablet DAILY [facility] metoprolol 2022- No TAKE 1 Univ ers tartrate 11-03 TABLET BY ity o f (LOPRESSOR) 00:00: 00:00 MOUTH [place] 100 mg 00 :00 TWICE MD tablet DAILY [facility] metoprolol 2022- No TAKE 1 Univ ers tartrate 11-03 TABLET BY ity o f (LOPRESSOR) 00:00: 00:00 MOUTH [place] 100 mg 00 :00 TWICE MD tablet DAILY [facility] metoprolol 2022- No TAKE 1 Univ ers tartrate 11-03 TABLET BY ity o f (LOPRESSOR) 00:00: 00:[place]TH [place] 100 mg 00 :00 TWICE [facility] 1 [facility] ers tartrate 11-03 TABLET BY ity o f (LOPRESSOR) 00:00: 00:00 [place]TH [place] 100 mg 00 :00 TWICE [facility]- No TAKE 1 Univ ers tartrate 11-03 TABLET BY ity o f (LOPRESSOR) 00:00: 00:00 [place]TH [place] 100 mg 00 :00 TWICE MD tablet DAILY [facility] METOPROLOL 2022- No TAKE 1 Univ ers TARTRATE 11-03 TABLET BY ithenri o f 100 mg 00:00: 00:00 MOUTH [place] tablet 00 :00 TWICE Medical DAILY Branch cetirizine 2021-11- No TAKE 1 Univ ers (ZyrTEC) 10 01-12 TABLET BY it y of mg tablet 00:00: 00:00 [place]TH [place]CE [place] 00 :[place] DAILY MD NEEDED FOR [facility] ALLERGIES [facility] cetirizine 2021-11- No TAKE 1 Univ ers (ZyrTEC) 10 01-12 TABLET BY it y of mg tablet 00:00: 00:00 MOUTH [place]CE [place] 00 :00 DAILY MD NEEDED FOR [facility] ALLERGIES [facility] cetirizine 2021-11- No TAKE 1 Univ ers (ZyrTEC) 10 01-12 TABLET BY it y of mg tablet 00:00: 00:00 MOUTH [place]CE [place] 00 :00 DAILY MD NEEDED FOR [facility] ALLERGIES [facility] [place] cetirizine 2021-11- No TAKE 1 Univ ers (ZyrTEC) 10 01-12 TABLET BY it y of mg tablet 00:00: 00:00 MOUTH [place]CE [place] 00 :00 DAILY MD NEEDED FOR [facility] ALLERGIES [facility] [place] cetirizine 2021-11- No TAKE 1 Univ ers (ZyrTEC) 10 01-12 TABLET BY it y of mg tablet 00:00: 00:00 [place]OUTH [place]CE [place] 00 :00 DAILY MD NEEDED FOR [facility] ALLERGIES n [facility] [place] cetirizine 2021-11- No TAKE 1 [facility]) 10 01-12 TABLET BY it y of mg tablet 00:00: 00:00 [place]OUTH [place]CE [place] 00 :00 DAILY MD NEEDED FOR [place] ALLERGIES n [facility] cetirizine 2021-11- No TAKE 1 [facility]) 10 01-12 TABLET BY it y of mg tablet 00:00: 00:00 MOUTH [place]CE [place] 00 :00 DAILY MD NEEDED FOR [facility] ALLERGIES [facility] [place] cetirizine 2021-11- No TAKE 1 [facility] 10 01-12 TABLET BY it y of mg tablet 00:00: 00:00 [place]OUTH [place]CE [place] 00 :00 DAILY MD NEEDED FOR [facility] ALLERGIES [facility] cetirizine 2021-11- No TAKE 1 [facility]) 10 01-12 TABLET BY it y of mg tablet 00:00: 00:00 MOUTH [place]CE [place] 00 :00 DAILY MD NEEDED FOR [facility] ALLERGIES [facility] [place] gabapentin 2021-11 Yes [id number] 600mg Take 1 [facility] 600 mg 2-21 [...] Indication s: chronic pain Diclofenac 2021-11 Yes [id number] Apply to [facility] Sodium 1 % 2-21 area(s) 3 ity of gel 00:00: (three) [place] 00 times Medical daily. Branch gabapentin 2021-11 Yes [id number] 600mg Take 1 [facility] 600 mg 2-21 [...] Indication s: chronic pain Diclofenac 2021-11 Yes [id number] Apply to [facility] Sodium 1 % 2-21 area(s) 3 ity of gel 00:00: (three) [place] 00 times Medical daily. Branch gabapentin 2021-11 Yes [id number] 600mg Take 1 [facility] 600 mg 2-21 [...] Indication s: chronic pain Diclofenac 2021-11 Yes [id number] Apply to [facility] Sodium 1 % 2-21 area(s) 3 ity of gel 00:00: (three) [place] 00 times Medical daily. Branch gabapentin 2021-11 Yes [id number] 600mg Take 1 [facility] 600 mg 2-21 [...] Indication s: chronic pain Diclofenac 2021-11 Yes [id number] Apply to [facility] Sodium 1 % 2-21 area(s) 3 ity of gel 00:00: (three) [place] 00 times Medical daily. Branch gabapentin 2021- Yes [id number] 600mg Take 1 [facility] 600 mg 2-21 [...] Indication s: chronic pain Diclofenac 2021-11 Yes [id number] Apply to [facility] Sodium 1 % 2-21 area(s) 3 ity of gel 00:00: (three) [place] 00 times Medical daily. Branch gabapentin 2021-11 Yes [id number] 600mg Take 1 [facility] 600 mg 2-21 tablet by ity of tablet 00:00: mouth in [place] 00 the Medical morning Branch and 1 tablet at noon and 1 tablet in the evening. HYDROcodone 2021-11 Yes [id number] 1{tbl} Take 1 Un ally -acetaminop 2-21 tablet by ity of hen 7.5-325 00:00: mouth [place] mg per 00 every 6 Medical tablet (six) Branch hours as needed for Pain. Indication s: chronic pain Diclofenac 2021-11 Yes [id number] Apply to [facility] Sodium 1 % 2-21 area(s) 3 ity of gel 00:00: (three) [place] 00 times Medical daily. Branch gabapentin 2021-11 Yes [id number] 600mg Take 1 [facility] 600 mg 2-21 tablet by ity of tablet 00:00: mouth in [place] [address] the Medical morning Branch and 1 tablet at noon and 1 tablet in the evening. Diclofenac 2021-11 Yes [id number] Apply to [facility] Sodium 1 % 2-21 area(s) 3 ity of gel 00:00: (three) [place] 00 times Medical daily. Branch gabapentin 2021-11 Yes [id number] 600mg Take 1 [facility] 600 mg 2-21 tablet by ity of tablet 00:00: mouth in [place] [address] the Medical morning Branch and 1 tablet at noon and 1 tablet in the evening. Diclofenac 2021-11 Yes [id number] Apply to [facility] Sodium 1 % 2-21 area(s) 3 ity of gel 00:00: (three) [place] 00 times Medical daily. Branch gabapentin 2021-11 Yes [id number] 600mg Take 1 [facility] 600 mg 2-21 tablet by ity of tablet 00:00: mouth in [place] [address] the Medical morning Branch and 1 tablet at noon and 1 tablet in the evening. Diclofenac 2021-11 Yes [id number] Apply to [facility] Sodium 1 % 2-21 area(s) 3 ity of gel 00:00: (three) [place] 00 times Medical daily. Branch gabapentin 2021-11 Yes [id number] 600mg Take 1 [facility] 600 mg 2-21 tablet by ity of tablet 00:00: mouth in [place] 00 the Medical morning Branch and 1 tablet at noon and 1 tablet in the evening. Diclofenac 2021-11 Yes [id number] Apply to [facility] Sodium 1 % 2-21 area(s) 3 ity of gel 00:00: (three) [place] 00 times Medical daily. Branch gabapentin 2021-11 Yes [id number] 600mg Take 1 [facility] 600 mg 2-21 tablet by ity of tablet 00:00: mouth in [place] 00 the Medical morning Branch and 1 tablet at noon and 1 tablet in the evening. Diclofenac 2021-11 Yes [id number] Apply to [facility] Sodium 1 % 2-21 area(s) 3 ity of gel 00:00: (three) [place] 00 times Medical daily. Branch gabapentin 2021-11 Yes [id number] 600mg Take 1 [facility] 600 mg 2-21 tablet by ity of tablet 00:00: mouth in [place] 00 the Medical morning Branch and 1 tablet at noon and 1 tablet in the evening. Diclofenac 2021-11 Yes [id number] Apply to [facility] Sodium 1 % 2-21 area(s) 3 ity of gel 00:00: (three) [place] 00 times Medical daily. Branch gabapentin 2021-11 Yes [id number] 600mg Take 1 [facility] 600 mg 2-21 tablet by ity of tablet 00:00: mouth in [place] 00 the Medical morning Branch and 1 tablet at noon and 1 tablet in the evening. Diclofenac 2021-11 Yes [id number] Apply to [facility] Sodium 1 % 2-21 area(s) 3 ity of gel 00:00: (three) [place] 00 times Medical daily. Branch gabapentin 2021-11 Yes [id number] 600mg Take 1 [facility] 600 mg 2-21 tablet by ity of tablet 00:00: mouth in [place] 00 the Medical morning Branch and 1 tablet at noon and 1 tablet in the evening. Diclofenac 2021- Yes [id number] Apply to [facility] Sodium 1 % 2-21 area(s) 3 ity of gel 00:00: (three) [place] 00 times Medical daily. Branch gabapentin 2021-11 Yes [id number] 600mg Take 1 [facility] 600 mg 2-21 tablet by ity of tablet 00:00: mouth in [place] 00 the Medical morning Branch and 1 tablet at noon and 1 tablet in the evening. Diclofenac 2021-11 Yes [id number] Apply to Univers Sodium 1 % 2-21 area(s) 3 ity of gel 00:00: (three) [place] 00 times Medical daily. Branch gabapentin 2021-11 Yes [id number] 600mg Take 1 [facility] 600 mg 2-21 tablet by ity of tablet 00:00: mouth in [place] 00 the Medical morning Branch and 1 tablet at noon and 1 tablet in the evening. Diclofenac 2021-11 Yes [id number] Apply to [facility] Sodium 1 % 2-21 area(s) 3 ity of gel 00:00: (three) [place] 00 times Medical daily. Branch gabapentin 2021-11 Yes [id number] 600mg Take 1 [facility] 600 mg 2-21 tablet by ity of tablet 00:00: mouth in [place] 00 the Medical morning Branch and 1 tablet at noon and 1 tablet in the evening. Diclofenac 2021-11 Yes [id number] Apply to [facility] Sodium 1 % 2-21 area(s) 3 ity of gel 00:00: (three) [place] 00 times Medical daily. Branch gabapentin 2021-11 Yes [id number] 600mg Take 1 [facility] 600 mg 2-21 tablet by ity of tablet 00:00: mouth in [place] 00 the Medical morning Branch and 1 tablet at noon and 1 tablet in the evening. Diclofenac 2021-11 Yes [id number] Apply to [facility] Sodium 1 % 2-21 area(s) 3 ity of gel 00:00: (three) [place] 00 times Medical daily. Branch gabapentin 2021-11 Yes [id number] 600mg Take 1 [facility] 600 mg 2-21 tablet by ity of tablet 00:00: mouth in [place] 00 the Medical morning Branch and 1 tablet at noon and 1 tablet in the evening. Diclofenac 2021-11 Yes [id number] Apply to [facility] Sodium 1 % 2-21 area(s) 3 ity of gel 00:00: (three) [place] 00 times Medical daily. Branch gabapentin 2021-11 Yes [id number] 600mg Take 1 [facility] 600 mg 2-21 tablet by ity of tablet 00:00: mouth in [place] 00 the Medical morning Branch and 1 tablet at noon and 1 tablet in the evening. Diclofenac 2021- Yes [id number] Apply to [facility] Sodium 1 % 2-21 area(s) 3 ity of gel 00:00: (three) [place] 00 times Medical daily. Branch gabapentin 2021-11 Yes [id number] 600mg Take 1 [facility] 600 mg 2-21 tablet by ity of tablet 00:00: mouth in [place] 00 the Medical morning Branch and 1 tablet at noon and 1 tablet in the evening. Diclofenac 2021-11 Yes [id number] Apply to [facility] Sodium 1 % 2-21 area(s) 3 ity of gel 00:00: (three) [place] 00 times Medical daily. Branch gabapentin 2021-11 Yes [id number] 600mg Take 1 [facility] 600 mg 2-21 tablet by ity of tablet 00:00: mouth in [place] 00 the Medical morning Branch and 1 tablet at noon and 1 tablet in the evening. Diclofenac 2021-11 Yes [id number] Apply to [facility] Sodium 1 % 2-21 area(s) 3 ity of gel 00:00: (three) [place] 00 times Medical daily. Branch gabapentin 2021-11 Yes [id number] 600mg Take 1 [facility] 600 mg 2-21 tablet by ity of tablet 00:00: mouth in [place] 00 the Medical morning Branch and 1 tablet at noon and 1 tablet in the evening. Diclofenac 2021-11 Yes [id number] Apply to [facility] Sodium 1 % 2-21 area(s) 3 ity of gel 00:00: (three) [place] 00 times Medical daily. Branch diclofenac 2021-11- [...] of 600 mg 00:00: 00:00 MOUTH IN [place] tablet 00 :00 THE MD MORNING [facility] [...] Pain. Indication s: chronic pain [facility] 2021-11 Yes every 8 Univ ers (XANAX) 2 2-20 (eight) ity [place] mg tablet 00:00: [place] 00 needed for [place] anxiety. [facility] 2021-11 Yes every 8 Univ ers (XANAX) 2 2-20 (eight) ity of mg tablet 00:00: hours [place] 00 needed for [place] anxiety. [facility] 2021-11 Yes every 8 Univ ers (XANAX) 2 2-20 (eight) ity of mg tablet 00:00: hours [place] 00 needed for MD anxiety. [facility] 2021-11 Yes every 8 Univ ers (XANAX) 2 2-20 (eight) ity of mg tablet 00:00: hours [place] 00 needed for MD anxiety. [facility] 2021-11 Yes every 8 Univ ers (XANAX) 2 2-20 (eight) ity of mg tablet 00:00: hours [place] 00 needed for MD anxiety. [facility] 2021-11 Yes every 8 Univ ers (XANAX) 2 2-20 (eight) ity of mg tablet 00:00: hours [place] 00 needed for MD anxiety. [facility] 2021-11 Yes every 8 Univ ers (XANAX) 2 2-20 (eight) ity of mg tablet 00:00: hours as [place] 00 needed for MD anxiety. [facility] 2021-11 Yes every 8 Univ ers (XANAX) 2 2-20 (eight) ity of mg tablet 00:00: hours [place] 00 needed for MD anxiety. [facility] ALPRAZolam 2021-11 Yes every 8 Univ ers (XANAX) 2 2-20 (eight) ity of mg tablet 00:00: hours [place] 00 needed for MD anxiety. [facility] albuterol 2021-11 Yes every 6 Unive rs (VENTOLIN 2-19 (six) ity of HFA,PROAIR 00:00: hours as [place] as HFA) 90 00 needed. MD mcg/puff [facility] inhaler [facility] albuterol 2021-11 Yes every 6 Unive rs (VENTOLIN 2-19 (six) ity of HFA,PROAIR 00:00: hours as [place] HFA) 90 00 needed. MD mcg/puff [place] inhaler [facility] albuterol 2021-11 Yes every 6 Unive rs (VENTOLIN 2-19 (six) ity of HFA,PROAIR 00:00: hours as [place] HFA) 90 00 needed. mcg/puff [facility] inhaler [facility] albuterol 2021-11 Yes every 6 Unive rs (VENTOLIN 2-19 (six) ity of HFA,PROAIR 00:00: hours as [place] HFA) 90 00 needed. mcg/puff [facility] inhaler [facility] albuterol 2021-11 Yes every 6 Unive rs (VENTOLIN 2-19 (six) ity of HFA,PROAIR 00:00: hours as [place] HFA) 90 00 needed. MD mcg/puff [place] inhaler [facility] albuterol 2021-11 Yes every 6 Unive rs (VENTOLIN 2-19 (six) ity of HFA,PROAIR 00:00: hours as [place] HFA) 90 00 needed. MD mcg/puff [facility] inhaler [facility] albuterol 2021-11 Yes every 6 Unive rs (VENTOLIN 2-19 (six) ity of HFA,PROAIR 00:00: hours as [place] HFA) 90 00 needed. MD mcg/puff [facility] inhaler [facility] albuterol 2021-11 Yes every 6 Unive rs (VENTOLIN 2-19 (six) ity of HFA,PROAIR 00:00: hours as [place] as HFA) 90 00 needed. MD moss/luis a Richardsonersclint inhaler [facility] albuterol 2021-11 Yes every 6 Unive rs (VENTOLIN 2-19 (six) ity of HFA,PROAIR 00:00: hours as [place] as HFA) 90 00 needed. MD moss/luis a Rob inhaler [facility] spironolact 2021-11- No TAKE 1 Uni vers one -20 12-14 TABLET BY ity of (ALDACTONE) 00:00: 00:[place]TH [place] 25 [place] 00 :00 EVERY DAY MD tablet [facility]- No TAKE 1 [facility] vers one 12-20-14 TABLET BY ity of (ALDACTONE) 00:00: 00:[place] M[place]TH [place] 25 [place] 00 :00 EVERY DAY MD tablet [facility] spironolact 2021-11- No TAKE 1 Uni vers one 12-20-14 TABLET BY ity of (ALDACTONE) 00:00: 00:[place] M[place]TH [place] 25 [place] 00 :00 EVERY DAY MD tablet [facility] spirolact 2021-11- No TAKE 1 Uni vers one 12-20-14 TABLET BY ity of (ALDACTONE) 00:00: 00:[place] M[place]TH [place] 25 [place] 00 :00 EVERY DAY MD tablet [facility] spironolact 2021-11- No TAKE 1 Uni vers one 12-20-14 TABLET BY ity of (ALDACTONE) 00:00: 00:[place] M[place]TH [place] 25 [place] 00 :00 EVERY DAY MD tablet [facility] spironolact 2021-11- No TAKE 1 Uni vers one -20 12-14 TABLET BY ity of (ALDACTONE) 00:00: 00:[place] M[place]TH [place] 25 [place] 00 :00 EVERY DAY MD tablet [facility] spironolact 2021-11- No TAKE 1 Uni vers one 12-20-14 TABLET BY ity of (ALDACTONE) 00:00: 00:[place] M[place]TH [place] 25 [place] 00 :00 EVERY DAY MD tablet [facility] [place] [facility] 2021-11- No TAKE 1 Uni vers one 2-19 02-14 TABLET BY ity of (ALDACTONE) 00:00: 00:[place] M[place]TH [place] 25 [place] 00 :00 EVERY DAY MD tablet [facility] [place] spironoutct 2021-11- No TAKE 1 Uni vers one 2-19 02-14 TABLET BY ity of (ALDACTONE) 00:00: 00:[place] M[place]TH [place] 25 [place] 00 :00 EVERY DAY MD tablet [facility] [place] [facility] 2021-11 Yes TAKE 1 [facility] (AMBIEN) 10 2-17 TABLET BY ity of mg tablet 00:00: [place] 00 BEDTIME MD NEEDED FOR [facility] INSOMNIA n [facility] zolpide 2021-11 Yes TAKE 1 [facility] (AMBIEN) 10 2-17 TABLET BY ity of mg tablet 00:00: [place] 00 BEDTIME MD NEEDED FOR [place] INSOMNIA n [facility]-11 Yes TAKE 1 [facility] (AMBIEN) 10 2-17 TABLET BY ity of mg tablet 00:00: M[place]TH [place] 00 BEDTIME MD NEEDED FOR [facility] INSOMNIA n [facility] zolpide 2021-11 Yes TAKE 1 [facility] (AMBIEN) 10 2-17 TABLET BY ity of mg tablet 00:00: M[place] 00 BEDTIME MD NEEDED FOR [place] INSOMNIA n [facility]-11 Yes TAKE 1 [facility] (AMBIEN) 10 2-17 TABLET BY ity of mg tablet 00:00: [place] 00 BEDTIME MD NEEDED FOR [facility] INSOMNIA n [facility] [place] zolpide 2021-11 Yes TAKE 1 [facility] (AMBIEN) 10 2-17 TABLET BY ity of mg tablet 00:00: M[place]TH [place] 00 BEDTIME MD NEEDED FOR [place] INSOMNIA n [facility] zolpide 2021-11 Yes TAKE 1 [facility] (AMBIEN) 10 2-17 TABLET BY ity of mg tablet 00:00: [place] 00 BEDTIME MD NEEDED FOR [facility] INSOMNIA n [facility] zolpide 2021-11 Yes TAKE 1 [facility] (AMBIEN) 10 2-17 TABLET BY ity of mg tablet 00:00: [place] 00 BEDTIME MD NEEDED FOR [facility]OMNIA [facility] zolpidem 2021-11 Yes TAKE 1 [facility] (AMBIEN) 10 2-17 TABLET BY ity of mg tablet 00:00: [place] 00 BEDTIME MD NEEDED FOR [facility] INSOMNIA [facility] ondansetron 2021-11 Yes DISSOLVE [...] 00:00: MOUTH [place] 00 EVERY DAY [facility] pantoprazol 2021-11 Yes TAKE 1 Univ ers e 2-13 TABLET BY ity of (PROTONIX) 00:00: MOUTH [place] 40 mg EC 00 DAILY tablet [facility] amLODIPine 2021-11 Yes TAKE 1 Unive rs (NORVASC) 5 2-13 TABLET BY ity of mg tablet 00:00: MOUTH [place] 00 EVERY DAY [facility] pantoprazol 2021-11 Yes TAKE 1 Univ ers e 2-13 TABLET BY ity of (PROTONIX) 00:00: MOUTH [place] 40 mg EC 00 DAILY tablet [facility] amLODIPine 2021-11 Yes TAKE 1 Unive rs (NORVASC) 5 2-13 TABLET BY ity of mg tablet 00:00: MOUTH [place] 00 EVERY DAY [facility] pantoprazol 2021-11 Yes TAKE 1 Univ ers e 2-13 TABLET BY ity of (PROTONIX) 00:00: MOUTH [place] 40 mg EC 00 DAILY tablet [facility] [facility] amLODIPine 2021-11 Yes TAKE 1 Unive rs (NORVASC) 5 2-13 TABLET BY ity of mg tablet 00:00: MOUTH [place] 00 EVERY DAY [facility] pantoprazol 2021-11 Yes TAKE 1 Univ ers e 2-13 TABLET BY ity of (PROTONIX) 00:00: MOUTH [place] 40 mg EC 00 DAILY tablet [facility] amLODIPine 2021-11 Yes TAKE 1 Unive rs (NORVASC) 5 2-13 TABLET BY ity of mg tablet 00:00: MOUTH [place] 00 EVERY DAY [facility] pantoprazol 2021-11 Yes TAKE 1 Univ ers e 2-13 TABLET BY ity of (PROTONIX) 00:00: MOUTH [place] 40 mg EC 00 DAILY MD tablet [facility] amLODIPine 2021-11 Yes TAKE 1 Unive rs (NORVASC) 5 2-13 TABLET BY ity of mg tablet 00:00: MOUTH [place] 00 EVERY DAY [facility] pantoprazol 2021-11 Yes TAKE 1 Univ ers e 2-13 TABLET BY ity of (PROTONIX) 00:00: MOUTH [place] 40 mg EC 00 DAILY MD tablet [facility] amLODIPine 2021-11 Yes TAKE 1 Unive rs (NORVASC) 5 2-13 TABLET BY ity of mg tablet 00:00: MOUTH [place] 00 EVERY DAY [facility] pantoprazol 2021-11 Yes TAKE 1 Univ ers e 2-13 TABLET BY ity of (PROTONIX) 00:00: MOUTH [place] 40 mg EC 00 DAILY MD tablet [facility] amLODIPine 2021-11 Yes TAKE 1 Unive rs (NORVASC) 5 2-13 TABLET BY ity of mg tablet 00:00: MOUTH [place] 00 EVERY DAY [facility] pantoprazol 2021-11 Yes TAKE 1 Univ ers e 2-13 TABLET BY ity of (PROTONIX) 00:00: MOUTH [place] 40 mg EC 00 DAILY tablet [facility] amLODIPine 2021-11 Yes TAKE 1 Unive rs (NORVASC) 5 2-13 TABLET BY ity of mg tablet 00:00: MOUTH [place] 00 EVERY DAY [facility] pantoprazol 2021-11 Yes TAKE 1 Univ ers e 2-13 TABLET BY ity of (PROTONIX) 00:00: MOUTH [place] 40 mg EC 00 DAILY MD tablet [facility] dicyclomine 2021-11- No TAKE 1 Uni vers (BENTYL) 10 2-12 03-20 CAPSULE BY i ty of mg capsule 00:00: 00:00 MOUTH [place] 00 :00 EVERY 8 MD HOURS [facility] dicyclomine 2021-11- No TAKE 1 Uni vers (BENTYL) 10 2-12 03-20 CAPSULE BY i ty of mg capsule 00:00: 00:00 MOUTH [place] 00 :00 EVERY 8 MD HOURS [facility] dicyclomine 2021-11- No TAKE 1 Uni vers (BENTYL) 10 2- 03-20 CAPSULE BY i ty of mg capsule 00:00: 00:00 MOUTH [place] 00 :00 EVERY 8 MD HOURS [facility] dicyclomine 2021-11- No TAKE 1 Uni vers (BENTYL) 10 12-13-20 CAPSULE BY i ty of mg capsule 00:00: 00:00 MOUTH [place] 00 :00 EVERY 8 MD HOURS [facility] dicyclomine 2021-11- No TAKE 1 Uni vers (BENTYL) 10 12-13-20 CAPSULE BY i ty of mg capsule 00:00: 00:00 MOUTH [place] 00 :00 EVERY 8 MD HOURS [facility] dicyclomine 2021-11- No TAKE 1 Uni vers (BENTYL) 10 12-13-20 CAPSULE BY i ty of mg capsule 00:00: 00:00 MOUTH [place] 00 :00 EVERY 8 MD HOURS [facility] dicyclomine 2021-11- No TAKE 1 Uni vers (BENTYL) 10 12-13-20 CAPSULE BY i ty of mg capsule 00:00: 00:00 MOUTH [place] 00 :00 EVERY 8 MD HOURS [facility] dicyclomine 2021-11- No TAKE 1 Uni vers (BENTYL) 10 12-13-20 CAPSULE BY i ty of mg capsule 00:00: 00:00 MOUTH [place] 00 :00 EVERY 8 MD HOURS [facility] dicyclomine 2021-11- No TAKE 1 Uni vers (BENTYL) 10 12-13-20 CAPSULE BY i ty of mg capsule 00:00: 00:00 MOUTH [place] 00 :00 EVERY 8 MD HOURS [facility] BD DEVORAH 2021-11 Yes 10mg Take [...] NEEDLE 32 00:00: [place] gauge x 00 [facility] BD DEVORAH 2021-11 Yes 10mg Take 10 mg Univers GEN PEN 2-05 by mouth. ity of NEEDLE 32 00:00: [place] gauge x 00 [facility] BD DEVORAH 2021-11 Yes 10mg Take 10 mg [facility] GEN PEN 2-05 by mouth. ity of NEEDLE 32 00:00: [place] gauge x 00 [facility] BD DEVORAH 2021-11 Yes 10mg Take 10 mg [facility] GEN PEN 2-05 by mouth. ity of NEEDLE 32 00:00: [place] gauge x 00 [facility] BD Devorah 2021-11- No USE Uni vers Gen Pen 2-05 12-15 DIRECTED. ity of Needle 32 00:00: 00:00 [place] gauge x 00 :[address] [place] [address] BD Devorah 2021-11- No USE Uni vers Gen Pen 2-05 12-15 DIRECTED. ity of Needle 32 00:00: 00:00 [place] gauge x 00 :[address] [place] [address] BD Devorah 2021-11- No USE Uni vers Gen Pen 2-05 12-15 DIRECTED. ity of Needle 32 00:00: 00:00 [place] gauge x 00 :00 MD Mg/[address] [place] [address] Devorah 2021-11- No USE Uni vers Gen Pen 12-06 DIRECTED. ity of Needle 32 00:00: 00:00 [place] gauge x 00 :00 MD Mg/[address] [place] [address] Devorah 2021-11- No USE Uni vers Gen Pen 12-06 DIRECTED. ity of Needle 32 00:00: 00:00 [place] gauge x 00 :00 MD Mg/[facility] Devorah 2021-11- No USE Uni vers Gen Pen 12-06 DIRECTED. ity of Needle 32 00:00: 00:00 [place] gauge x 00 :[address] [place] [address] Devorah 2021-11- No USE Uni vers Gen Pen 12-06 DIRECTED. ity of Needle 32 00:00: 00:00 [place] gauge x 00 :[address] [place] [address] Devorah 2021-11- No USE Uni vers Gen Pen 12-06 DIRECTED. ity of Needle 32 00:00: 00:00 [place] gauge x 00 :[address] [place] [address] Devorah [facility] 2021-11- No USE Uni vers Gen Pen 12-06 DIRECTED. ity of Needle 32 00:00: 00:00 [place] gauge x 00 :[address] [place] [address] LISINOPRIL 2021-11 Yes [id number] TAKE 1/2 Univers 40 mg 2-02 TABLET BY ity of tablet 00:00: MOUTH [place] 00 TWICE Medical DAILY Branch LISINOPRIL 2021-11 Yes [id number] TAKE 1/2 Univers 40 mg 2-02 TABLET BY ity of tablet 00:00: MOUTH [place] 00 TWICE Medical DAILY Branch LISINOPRIL 2021-11 Yes [id number] TAKE 1/2 Univers 40 mg 2-02 TABLET BY ity of tablet 00:00: MOUTH [place] 00 TWICE Medical DAILY Branch LISINOPRIL 2021-11 Yes [id number] TAKE 1/2 Univers 40 mg 2-02 TABLET BY ity of tablet 00:00: MOUTH [place] 00 TWICE Medical DAILY Branch LISINOPRIL 2021-11 Yes [id number] TAKE 1/2 Univers 40 mg 2-02 TABLET BY ity of tablet 00:00: MOUTH [place] 00 TWICE Medical DAILY Branch LISINOPRIL 2021-11- No [id number] TAKE 1/2 Univers 40 mg 2-02 - TABLET BY ity of tablet 00:00: 00:00 MOUTH [place] 00 :00 TWICE Medical DAILY Branch hydrALAZINE 2021-11- No TAKE 1 Uni vers (APRESOLINE 12-02 TABLET BY it y of ) 100 mg 00:00: 00:00 MOUTH [place] tablet 00 :00 THREE MD TIMES Anderso DAILY [facility] Victoza 2021-11- No ADMINISTER Uni vers 2-Patrick 0.6 12-02 1.8 MG ity of mg/0.1 mL 00:00: 00:00 [place]ER [place] ([place] mg/3 00 :00 SKIN EVERY MD mL) pnij DAY Anderso injection [facility] lisinopril 2021-11- No TAKE 1/2 Un ally (PRINIVIL,Z 12-02 TABLET BY it y of ESTRIL) 40 00:00: 00:00 MOUTH [place] mg tablet 00 :00 TWICE MD DAILY Liaen [facility] insulin 2021-11- No USE TWICE Univ ers syringe-nee 12-02 DAILY WITH i ty of dle U-100 1 00:00: 00:00 MEALS. Frankie as mL 31 gauge 00 :00 x 03/16 adrienne Rob [facility] hydrALAZINE 2021-11- No TAKE 1 Uni vers (APRESOLINE 12-02 TABLET BY it y of ) 100 mg 00:00: 00:00 MOUTH [place] tablet 00 :00 THREE MD TIMES Anderso DAILY [facility] Victoza 2021-11- No ADMINISTER Uni vers 2-Patrick 0.6 12-02 1.8 MG ity of mg/0.1 mL 00:00: 00:00 [place] ([place] mg/3 00 :00 SKIN EVERY MD mL) pnij DAY Anderso injection [facility] lisinopril 2021-11- No TAKE 1/2 Un ally (PRINIVIL,Z 12-02 TABLET BY it y of ESTRIL) 40 00:00: 00:00 MOUTH [place] mg tablet 00 :00 [facility] No USE TWICE Univ ers syringe-nee 12-02 DAILY WITH i ty of dle U-100 1 00:00: 00:00 MEALS. [place] mL 31 gauge 00 :00 MD x 03/16 stevieg [facility] hydrALAZINE 2021-11- No TAKE 1 Uni vers (APRESOLINE 12-02 TABLET BY it y of ) 100 mg 00:00: 00:00 MOUTH [place] tablet 00 :00 THREE MD TIMES Anderso DAILY [facility] Victoza 2021-11- No ADMINISTER Uni vers 2-Patrick 0.6 12-02 1.8 MG ity of mg/0.1 mL 00:00: 00:00 [place] ([place] mg/3 00 :00 SKIN EVERY MD mL) pnij DAY Anderso injection [facility] lisinopril 2021-11- No TAKE 1/2 Un ally (PRINIVIL,Z 12-02 TABLET BY it y of ESTRIL) 40 00:00: 00:00 MOUTH [place] mg tablet 00 :00 TWICE MD DAILY [facility] insulin 2021-11- No USE TWICE Univ ers syringe-nee 12-02 DAILY WITH i ty of dle U-100 1 00:00: 00:00 MEALS. [place] mL 31 gauge 00 :00 MD x 16 adrienne [facility] hydrALAZINE 2021-11- No TAKE 1 Uni vers (APRESOLINE 12-02 TABLET BY it y of ) 100 mg 00:00: 00:00 MOUTH [place] tablet 00 :00 THREE MD TIMES Anderso DAILY [facility] Victoza 2021-11- No ADMINISTER Uni vers 2-Patrick 0.6 12-02 1.8 MG ity of mg/0.1 mL 00:00: 00:00 [place] ([place] mg/3 00 :00 SKIN EVERY MD mL) pnij DAY Anderso injection [facility] lisinopril 2021-11- No TAKE 1/2 Un ally (PRINIVIL,Z 12-02 TABLET BY it y of ESTRIL) 40 00:00: 00:00 MOUTH [place] mg tablet 00 :00 TWICE MD DAILY [facility] insulin 2021-11- No USE TWICE Univ ers syringe-nee 12-02 DAILY WITH i ty of dle U-100 1 00:00: 00:00 MEALS. [place] mL 31 gauge 00 :00 MD x 5/16 syrg [facility] hydrALAZINE 2021-11- No TAKE 1 Uni vers (APRESOLINE 12-02 TABLET BY it y of ) 100 mg 00:00: 00:00 MOUTH [place] tablet 00 :00 THREE MD TIMES Anderso DAILY [facility] Victoza 2021-11- No ADMINISTER Uni vers 2-Patrick 0.6 12-02 1.8 MG ity of mg/0.1 mL 00:00: 00:00 [place] ([place] mg/3 00 :00 SKIN EVERY MD mL) [facility] lisinopril 2021-11- No TAKE 1/2 Un ally (PRINIVIL,Z 12-02 TABLET BY it y of ESTRIL) 40 00:00: 00:00 MOUTH [place] mg tablet 00 :00 [facility]ICE [facility] No USE TWICE Univ ers syringe-nee 12-02 DAILY WITH i ty of dle U-100 1 00:00: 00:00 MEALS. [place] mL 31 gauge 00 :00 MD x 5/16 stevieg [facility] 2021-11- No TAKE 1 Uni vers (APRESOLINE 12-02 TABLET BY it y of ) 100 mg 00:00: 00:00 MOUTH [place] tablet 00 :00 THREE MD TIMES Anderso DAILY [facility] Victoza 2021-11- No ADMINISTER Uni vers 2-Patrick 0.6 12-02 1.8 MG ity of mg/0.1 mL 00:00: 00:00 [place] ([place] mg/3 00 :00 SKIN EVERY MD mL) pnij DAY [facility] lisinopril 2021-11- No TAKE 1/2 Un ally (PRINIVIL,Z 12-02 TABLET BY it y of ESTRIL) 40 00:00: 00:00 MOUTH [place] mg tablet 00 :00 TWICE [facility]-11- No USE TWICE Univ ers syringe-nee 12-02 DAILY WITH i ty of dle U-100 1 00:00: 00:00 MEALS. [place] mL 31 gauge 00 :00 MD x 5/16 stevieg [facility] hydrALAZINE 2021-11- No TAKE 1 Uni vers (APRESOLINE 12-02 TABLET BY it y of ) 100 mg 00:00: 00:00 MOUTH [place] tablet 00 :00 THREE MD TIMES Anderso DAILY [facility] Victoza 2021-11- No ADMINISTER Uni vers 2-Patrick 0.6 12-02 1.8 MG ity of mg/0.1 mL 00:00: 00:00 [place] ([place] mg/3 00 :00 SKIN EVERY MD mL) pnij [facility] lisinopril 2021-11- No TAKE 1/2 Un ally (PRINIVIL,Z 12-02 TABLET BY it y of ESTRIL) 40 00:00: 00:00 MOUTH [place] mg tablet 00 :00 [facility]ICE [facility]-11- No USE TWICE Univ ers syringe-nee 12-02 DAILY WITH i ty of dle U-100 1 00:00: 00:00 MEALS. [place] mL 31 gauge 00 :00 MD x /16 stevieg [facility] hydrALAZINE 2021-11- No TAKE 1 Uni vers (APRESOLINE 12-02 TABLET BY it y of ) 100 mg 00:00: 00:00 MOUTH [place] tablet 00 :00 THREE MD TIMES Anderso DAILY [facility] Victoza 2021-11- No ADMINISTER Uni vers 2-Patrick 0.6 12-02 1.8 MG ity of mg/0.1 mL 00:00: 00:00 [place] ([place] mg/3 00 :00 SKIN EVERY MD mL) pnij DAY [facility] lisinopril 2021-11- No TAKE 1/2 Un ally (PRINIVIL,Z 12-02 TABLET BY it y of ESTRIL) 40 00:00: 00:00 MOUTH [place] mg tablet 00 :00 TWICE MD DAILY [facility] insulin 2021-11- No USE TWICE Univ ers syringe-nee 12-02 DAILY WITH i ty of dle U-100 1 00:00: 00:00 MEALS. [place] mL 31 gauge 00 :00 MD blake 16 adrienne [facility] hydrALAZINE 2021-11- No TAKE 1 Uni vers (APRESOLINE 12-02 TABLET BY it y of ) 100 mg 00:00: 00:00 MOUTH [place] tablet 00 :00 THREE MD TIMES Andevelin GAMBINO [facility] Victoza 2021-11- No ADMINISTER Uni vers 2-Patrick 0.6 12-02 1.8 MG ity of mg/0.1 mL 00:00: 00:00 [place] ([place] mg/3 00 :00 SKIN EVERY MD mL) pnij [facility] lisinopril 2021-11- No TAKE 1/2 Un ally (PRINIVIL,Z 12-02 TABLET BY it y of ESTRIL) 40 00:00: 00:00 MOUTH [place] mg tablet 00 :00 TWICE MD DAILY [facility] insulin 2021-11- No USE TWICE Univ ers syringe-nee 12-02 DAILY WITH i ty of dle U-100 1 00:00: 00:00 MEALS. [place] mL 31 gauge 00 :00 MD blake 516 adrienne [facility] allopurinol 2021-11- No 100mg Take 100 Univers (ZYLOPRIM) 1-21 11-21 mg by ity of 100 mg 09:37: 00:00 mouth [place] tablet 13 :00 daily. Medical Branch ALPRAZolam 2021-11- No 2mg Take 2 mg U nivers (XANAX) 1-21 09-21 by mouth ity of 0.25 mg 09:37: 00:00 every 6 [place] tablet 13 :00 (six) Medical hours as Branch needed. allopurinol 2021-11- No 100mg Take 100 Univers (ZYLOPRIM) -21 -21 mg by ity of 100 mg 09:37: 00:00 mouth [place] tablet 13 :00 daily. Medical Branch ALPRAZolam 2021-11- No 2mg Take 2 mg U nivers (XANAX) -21 09- by mouth ity of 0.25 mg 09:37: 00:00 every 6 [place] tablet 13 :00 (six) Medical hours as Branch needed. HYDROcodone 2021-11 Yes [id number] 1{tbl} Take 1 Un ally -acetaminop 1-21 tablet by ity of hen 7.5-325 00:00: mouth [place] mg per 00 every 6 Medical tablet (six) Branch hours as needed for Pain. Indication s: chronic pain metFORMIN 2021-11 Yes [id number] 1000mg Take 1 Univers 1,000 mg 1-21 tablet by ity of tablet 00:00: mouth in [place] 00 the Medical morning Branch and 1 tablet in the evening. Take with meals. HYDROcodone 2021-11 Yes [id number] 1{tbl} Take 1 Un ally -acetaminop 1-21 tablet by ity of hen 7.5-325 00:00: mouth [place] mg per 00 every 6 Medical tablet (six) Branch hours as needed for Pain. Indication s: chronic pain metFORMIN 2021-11 Yes [id number] 1000mg Take 1 Univers 1,000 mg 1-21 tablet by ity of tablet 00:00: mouth in [place] 00 the Medical morning Branch and 1 tablet in the evening. Take with meals. HYDROcodone 2021-11 Yes [id number] 1{tbl} Take 1 Un ally -acetaminop 1-21 tablet by ity of hen 7.5-325 00:00: mouth [place] mg per 00 every 6 Medical tablet (six) Branch hours as needed for Pain. Indication s: chronic pain metFORMIN 2021-11 Yes [id number] 1000mg Take 1 Univers 1,000 mg 1-21 tablet by ity of tablet 00:00: mouth in [place] 00 the Medical morning Branch and 1 tablet in the evening. Take with meals. HYDROcodone 2021-11 Yes [id number] 1{tbl} Take 1 Un ally -acetaminop 1-21 tablet by ity of hen 7.5-325 00:00: mouth [place] mg per 00 every 6 Medical tablet (six) Branch hours as needed for Pain. Indication s: chronic pain metFORMIN 2021-11 Yes [id number] 1000mg Take 1 Univers 1,000 mg 1-21 tablet by ity of tablet 00:00: mouth in [address] and 1 tablet in the evening. Take with meals. metFORMIN 2021-11 Yes [id number] 1000mg Take 1 Univers 1,000 mg 1-21 tablet by ity of tablet 00:00: mouth in [address] and 1 tablet in the evening. Take with meals. neomycin-po 2021-11 Yes INSTILL 4 U nivers lymyxin-hyd 1-21 DROPS TO ity of rocortisone 00:00: AFFECTED [place] otic 00 EAR FOUR Medical solution TIMES Branch DAILY metFORMIN 2021-11 Yes [id number] 1000mg Take 1 Univers 1,000 mg 1-21 tablet by ity of tablet 00:00: mouth in [address] and 1 tablet in the evening. Take with meals. neomycin-po 2021-11 Yes INSTILL 4 U nivers lymyxin-hyd 1-21 DROPS TO ity of rocortisone 00:00: AFFECTED [place] otic 00 EAR FOUR Medical solution TIMES Branch DAILY metFORMIN 2021-11 Yes [id number] 1000mg Take 1 Univers 1,000 mg 1-21 tablet by ity of tablet 00:00: mouth in [address] and 1 tablet in the evening. Take with meals. neomycin-po 2021-11 Yes INSTILL 4 U nivers lymyxin-hyd 1-21 DROPS TO ity of rocortisone 00:00: AFFECTED [place] otic 00 EAR FOUR Medical solution TIMES Branch DAILY metFORMIN 2021-11 Yes [id number] 1000mg Take 1 Univers 1,000 mg 1-21 tablet by ity of tablet 00:00: mouth in [address] and 1 tablet in the evening. Take with meals. neomycin-po 2021-11 Yes INSTILL 4 U nivers lymyxin-hyd 1-21 DROPS TO ity of rocortisone 00:00: AFFECTED [place] otic 00 EAR FOUR Medical solution TIMES Branch DAILY metFORMIN 2021-11 Yes [id number] 1000mg Take 1 Univers 1,000 mg 1-21 tablet by ity of tablet 00:00: mouth in [address] morning [place] and 1 tablet in the evening. Take with meals. neomycin-po 2021-11 Yes INSTILL 4 U nivers lymyxin-hyd 1-21 DROPS TO ity of rocortisone 00:00: AFFECTED [place] otic 00 EAR FOUR Medical solution TIMES Branch DAILY metFORMIN 2021-11 Yes [id number] 1000mg Take 1 Univers 1,000 mg 1-21 tablet by ity of tablet 00:00: mouth in [address] morning [place] and 1 tablet in the evening. Take with meals. neomycin-po 2021-11 Yes INSTILL 4 U nivers lymyxin-hyd 1-21 DROPS TO ity of rocortisone 00:00: AFFECTED [place] otic 00 EAR FOUR Medical solution TIMES Branch DAILY metFORMIN 2021-11 Yes [id number] 1000mg Take 1 Univers 1,000 mg 1-21 tablet by ity of tablet 00:00: mouth in [address] and 1 tablet in the evening. Take with meals. neomycin-po 2021-11 Yes INSTILL 4 U nivers lymyxin-hyd 1-21 DROPS TO ity of rocortisone 00:00: AFFECTED [place] otic 00 EAR FOUR Medical solution TIMES Branch DAILY metFORMIN 2021-11 Yes [id number] 1000mg Take 1 Univers 1,000 mg 1-21 tablet by ity of tablet 00:00: mouth in [address] and 1 tablet in the evening. Take with meals. neomycin-po 2021-11 Yes INSTILL 4 U nivers lymyxin-hyd 1-21 DROPS TO ity of rocortisone 00:00: AFFECTED [place] otic 00 EAR FOUR Medical solution TIMES Branch DAILY metFORMIN 2021-11 Yes [id number] 1000mg Take 1 Univers 1,000 mg 1-21 tablet by ity of tablet 00:00: mouth in [address] and 1 tablet in the evening. Take with meals. neomycin-po 2021-11 Yes INSTILL 4 U nivers lymyxin-hyd 1-21 DROPS TO ity of rocortisone 00:00: AFFECTED [place] otic 00 EAR FOUR Medical solution TIMES Branch DAILY metFORMIN 2021-11 Yes [id number] 1000mg Take 1 Univers 1,000 mg 1-21 tablet by ity of tablet 00:00: mouth in [address] morning [place] and 1 tablet in the evening. Take with meals. neomycin-po 2021-11 Yes INSTILL 4 U nivers lymyxin-hyd 1-21 DROPS TO ity of rocortisone 00:00: [place]FFECTED [place] otic 00 EAR FOUR Medical solution TIMES Branch DAILY metFORMIN 2021-11 Yes [id number] 1000mg Take 1 Univers 1,000 mg 1-21 tablet by ity of tablet 00:00: mouth in [address] morning [place] and 1 tablet in the evening. Take with meals. neomycin-po 2021-11 Yes INSTILL 4 U nivers lymyxin-hyd 1-21 DROPS TO ity of rocortisone 00:00: AFFECTED [place] otic 00 EAR FOUR Medical solution TIMES Branch DAILY metFORMIN 2021-11 Yes [id number] 1000mg Take 1 Univers 1,000 mg 1-21 tablet by ity of tablet 00:00: mouth in [address] and 1 tablet in the evening. Take with meals. neomycin-po 2021-11 Yes INSTILL 4 U nivers lymyxin-hyd 1-21 DROPS TO ity of rocortisone 00:00: AFFECTED [place] otic 00 EAR FOUR Medical solution TIMES Branch DAILY metFORMIN 2021-11 Yes [id number] 1000mg Take 1 Univers 1,000 mg 1-21 tablet by ity of tablet 00:00: mouth in [address] and 1 tablet in the evening. Take with meals. neomycin-po 2021-11 Yes INSTILL 4 U nivers lymyxin-hyd 1-21 DROPS TO ity of rocortisone 00:00: AFFECTED [place] otic 00 EAR FOUR Medical solution TIMES Branch DAILY metFORMIN 2021-11 Yes [id number] 1000mg Take 1 Univers 1,000 mg 1-21 tablet by ity of tablet 00:00: mouth in [address] and 1 tablet in the evening. Take with meals. neomycin-po 2021-11 Yes INSTILL 4 U nivers lymyxin-hyd 1-21 DROPS TO ity of rocortisone 00:00: AFFECTED [place] otic 00 EAR FOUR Medical solution TIMES Branch DAILY metFORMIN 2021-11 Yes [id number] 1000mg Take 1 Univers 1,000 mg 1-21 tablet by ity of tablet 00:00: mouth in [place] [address] the Medical morning [place] and 1 tablet in the evening. Take with meals. neomycin-po 2021-11 Yes INSTILL 4 U nivers lymyxin-hyd 1-21 DROPS TO ity of rocortisone 00:00: AFFECTED [place] otic 00 EAR FOUR Medical solution TIMES Branch DAILY metFORMIN 2021-11 Yes [id number] 1000mg Take 1 Univers 1,000 mg 1-21 tablet by ity of tablet 00:00: mouth in [address] morning [place] and 1 tablet in the evening. Take with meals. neomycin-po 2021-11 Yes INSTILL 4 U nivers lymyxin-hyd 1-21 DROPS TO ity of rocortisone 00:00: AFFECTED [place] otic 00 EAR FOUR Medical solution TIMES Branch DAILY metFORMIN 2021-11 Yes [id number] 1000mg Take 1 Univers 1,000 mg 1-21 tablet by ity of tablet 00:00: mouth in [address] morning [place] and 1 tablet in the evening. Take with meals. neomycin-po 2021-11 Yes INSTILL 4 U nivers lymyxin-hyd 1-21 DROPS TO ity of rocortisone 00:00: [place]FFECTED [place] otic 00 EAR FOUR Medical solution TIMES Branch DAILY metFORMIN 2021-11 Yes [id number] 1000mg Take 1 Univers 1,000 mg 1-21 tablet by ity of tablet 00:00: mouth in [address] and 1 tablet in the evening. Take with meals. neomycin-po 2021-11 Yes INSTILL 4 U nivers lymyxin-hyd 1-21 DROPS TO ity of rocortisone 00:00: AFFECTED [place] otic 00 EAR FOUR Medical solution TIMES Branch DAILY metFORMIN 2021-11 Yes [id number] 1000mg Take 1 Univers 1,000 mg 1-21 tablet by ity of tablet 00:00: mouth in [address] morning [place] and 1 tablet in the evening. Take with meals. neomycin-po 2021-11 Yes INSTILL 4 U nivers lymyxin-hyd 1-21 DROPS TO ity of rocortisone 00:00: AFFECTED [place] otic 00 EAR FOUR Medical solution TIMES Branch DAILY metFORMIN 2021-11 Yes [id number] 1000mg Take 1 Univers 1,000 mg 1-21 tablet by ity of tablet 00:00: mouth in [place] 00 the Medical morning Branch and 1 tablet in the evening. Take with meals. neomycin-po 2021-11 Yes INSTILL 4 U nivers lymyxin-hyd 1-21 DROPS TO ity of rocortisone 00:00: AFFECTED [place] otic 00 EAR FOUR Medical solution TIMES Branch DAILY metFORMIN 2021-11 Yes [id number] 1000mg Take 1 Univers 1,000 mg 1-21 tablet by ity of tablet 00:00: mouth in [place] [address] the Medical morning Branch and 1 tablet in the evening. Take with meals. neomycin-po 2021-11 Yes INSTILL 4 U nivers lymyxin-hyd 1-21 DROPS TO ity of rocortisone 00:00: AFFECTED [place] otic 00 EAR FOUR Medical solution TIMES Branch DAILY metFORMIN 2021-11 Yes [id number] 1000mg Take 1 Univers 1,000 mg 1-21 tablet by ity of tablet 00:00: mouth in [place] [address] the Medical morning [place] and 1 tablet in the evening. Take with meals. neomycin-po 2021-11 Yes INSTILL 4 U nivers lymyxin-hyd 1-21 DROPS TO ity of rocortisone 00:00: AFFECTED [place] otic 00 EAR FOUR Medical solution TIMES Branch DAILY metFORMIN 2021-11 Yes [id number] 1000mg Take 1 Univers 1,000 mg 1-21 tablet by ity of tablet 00:00: mouth in [place] [address] the [facility] morning [place] and 1 tablet in the evening. Take with meals. neomycin-po 2021-11 Yes INSTILL 4 U nivers lymyxin-hyd 1-21 DROPS TO ity of rocortisone 00:00: AFFECTED [place] otic 00 EAR FOUR Medical solution TIMES Branch DAILY colchicine 2021-11- No TAKE 1 Univ ers (COLCRYS) - 03-20 TABLET BY ity of 0.6 mg 00:00: 00:00 MOUTH [place] tablet 00 :00 DAILY MD Rob [facility] colchicine 2021-11- No TAKE 1 Univ ers (COLCRYS) - 03-20 TABLET BY ity of 0.6 mg 00:00: 00:00 MOUTH [place] tablet 00 :00 DAILY MD Liane olivier [facility] colchicine 2021-11- No TAKE 1 Univ ers (COLCRYS) 11-21 03-20 TABLET BY ity of 0.6 mg 00:00: 00:00 MOUTH [place] tablet 00 :00 DAILY MD Liane olivier [facility] colchicine 2021-11- No TAKE 1 Univ ers (COLCRYS) 11-21-20 TABLET BY ity of 0.6 mg 00:00: 00:00 MOUTH [place] tablet 00 :00 DAILY MD Liane olivier [facility] colchicine 2021-11- No TAKE 1 Univ ers (COLCRYS) 11-21-20 TABLET BY ity of 0.6 mg 00:00: 00:00 MOUTH [place] tablet 00 :00 DAILY MD Liane olivier [facility] colchicine 2021-11- No TAKE 1 Univ ers (COLCRYS) 11-21-20 TABLET BY ity of 0.6 mg 00:00: 00:00 MOUTH [place] tablet 00 :00 DAILY MD Liane olivier [facility] colchicine 2021-11- No TAKE 1 Univ ers (COLCRYS) 11-21-20 TABLET BY ity of 0.6 mg 00:00: 00:00 MOUTH [place] tablet 00 :00 DAILY MD Liane olivier [facility] colchicine 2021-11- No TAKE 1 Univ ers (COLCRYS) 11-21-20 TABLET BY ity of 0.6 mg 00:00: 00:00 MOUTH [place] tablet 00 :00 DAILY MD Liane olivier [facility] colchicine 2021-11- No TAKE 1 Univ ers (COLCRYS) 11-21-20 TABLET BY ity of 0.6 mg 00:00: 00:00 MOUTH [place] tablet 00 :00 DAILY MD Liane olivier [facility] metFORMIN 2021-11- No TAKE 1 Unive [...] needed for Pain. Indication s: chronic pain [facility] 2021-11 Yes INHALE 1 Univer s Ellipta 1-18 PUFF BY ity of 100-62.5-25 00:00: MOUTH [place] mcg dsdv 00 EVERY DAY [facility] 2021-11 Yes INHALE 1 Univer s Ellipta 1-18 PUFF BY ity of 100-62.5-25 00:00: MOUTH [place] mcg dsdv 00 EVERY DAY [facility] 2021-11 Yes INHALE 1 Univer s Ellipta 1-18 PUFF BY ity of 100-62.5-25 00:00: MOUTH [place] mcg dsdv 00 EVERY DAY [facility] 2021-11 Yes INHALE 1 Univer s Ellipta 1-18 PUFF BY ity of 100-62.5-25 00:00: MOUTH [place] mcg dsdv 00 EVERY DAY [facility] 2021-11 Yes INHALE 1 Univer s Ellipta 1-18 PUFF BY ity of 100-62.5-25 00:00: MOUTH [place] mcg dsdv 00 EVERY DAY [facility] 2021-11 Yes INHALE 1 Univer s Ellipta 1-18 PUFF BY ity of 100-62.5-25 00:00: MOUTH [place] mcg dsdv 00 [facility] DAY [facility] INHALE 1 Univer s Ellipta 1-18 PUFF BY ity of 100-62.5-25 00:00: MOUTH [place] mcg dsdv 00 EVERY DAY [facility] 2021-11 Yes INHALE 1 Univer s Ellipta 1-18 PUFF BY ity of 100-62.5-25 00:00: MOUTH [place] mcg dsdv 00 [facility]ALE 1 Univer s Ellipta 1-18 PUFF BY ity of 100-62.5-25 00:00: MOUTH [place] mcg dsdv 00 [facility] No PLACE 1 Un ally in 11-18 TABLET ity of (NITROSTAT) 00:00: 00:00 UNDER THE [place] 0.4 mg SL 00 :00 TONGUE MD tablet EVERY 5 Anderso MINUTES n FOR CHEST Cancer PAIN. [place] nitroglycer 2021-11- No PLACE 1 Un ally in 11-18 TABLET ity of (NITROSTAT) 00:00: 00:00 UNDER THE [place] 0.4 mg SL 00 :00 TONGUE MD tablet EVERY 5 Anders[place] MINUTES n FOR CHEST Cancer PAIN. [place] nitroglycer 2021-11- No PLACE 1 Un ally in 11-18 TABLET ity of (NITROSTAT) 00:00: 00:00 UNDER THE [place] 0.4 mg SL 00 :00 TONGUE MD tablet EVERY 5 Anders[place] MINUTES n FOR CHEST Cancer PAIN. [place] nitroglycer 2021-11- No PLACE 1 Un ally in 11-18 TABLET ity of (NITROSTAT) 00:00: 00:00 UNDER THE [place] 0.4 mg SL 00 :00 TONGUE MD tablet EVERY 5 Anders[place] MINUTES n FOR CHEST Cancer PAIN. [place] nitroglycer 2021-11- No PLACE 1 Un ally in 11-18 TABLET ity of (NITROSTAT) 00:00: 00:00 UNDER THE [place] 0.4 mg SL 00 :00 TONGUE MD tablet EVERY 5 [place] MINUTES n FOR CHEST Cancer PAIN. [place] nitroglycer 2021-11- No PLACE 1 Un ally in 11-18 TABLET ity of (NITROSTAT) 00:00: 00:00 UNDER THE [place] 0.4 mg SL 00 :00 TONGUE MD tablet EVERY 5 Anders[place] MINUTES n FOR CHEST Cancer PAIN. [place] nitroglycer 2021-11- No PLACE 1 Un ally in 11-18 TABLET ity of (NITROSTAT) 00:00: 00:00 UNDER THE [place] 0.4 mg SL 00 :00 TONGUE MD tablet EVERY 5 Anders[place] MINUTES n FOR CHEST Cancer PAIN. [place] nitroglycer 2021-11- No PLACE 1 Un ally in 11-18 TABLET ity of (NITROSTAT) 00:00: 00:00 UNDER THE [place] 0.4 mg SL 00 :00 TONGUE MD tablet EVERY 5 Anders[place] MINUTES n FOR CHEST Cancer PAIN. [place] nitroglycer 2021-11- No PLACE 1 Un ally in 18 03-14 TABLET ity of (NITROSTAT) 00:00: 00:00 UNDER THE [place] 0.4 mg SL 00 :00 TONGUE MD tablet EVERY 5 Anderso MINUTES n FOR CHEST Cancer PAIN. [place] GABAPENTIN 2021-11 Yes [id number] TAKE 1 Univers 600 mg 1-17 TABLET BY ity of tablet 00:00: MOUTH [place] 00 THREE Medical TIMES Branch DAILY GABAPENTIN 2021-11 Yes [id number] TAKE 1 Univers 600 mg 1-17 TABLET BY ity of tablet 00:00: MOUTH [place] 00 THREE Medical TIMES Branch DAILY GABAPENTIN 2021-11 Yes [id number] TAKE 1 Univers 600 mg 1-17 TABLET BY ity of tablet 00:00: MOUTH [place] 00 THREE Medical TIMES Branch DAILY GABAPENTIN 2021-11 Yes [id number] TAKE 1 Univers 600 mg 1-17 TABLET BY ity of tablet 00:00: MOUTH [place] 00 THREE Medical TIMES Branch DAILY GABAPENTIN 2021-11 Yes [id number] TAKE 1 Univers 600 mg 1-17 TABLET BY ity of tablet 00:00: MOUTH [place] 00 THREE Medical TIMES Branch DAILY GABAPENTIN 2021-11 Yes [id number] TAKE 1 Univers 600 mg 1-17 TABLET BY ity of tablet 00:00: MOUTH [place] 00 THREE Medical TIMES Branch DAILY GABAPENTIN 2021-11- No [id number] TAKE 1 Univers 600 mg 1-17 12-21 TABLET BY ity of tablet 00:00: 00:00 MOUTH [place] 00 :00 THREE Medical TIMES Branch DAILY GABAPENTIN 2021-11- No [id number] TAKE 1 Univers 600 mg 1-17 12-21 TABLET BY ity of tablet 00:00: 00:00 MOUTH [place] 00 :00 THREE Medical TIMES Branch DAILY atorvastati 2021-11 Yes TAKE 1 Univ ers n (LIPITOR) 1-12 TABLET BY ity of 20 mg 00:00: MOUTH [place] tablet 00 EVERY DAY MD Liane olivier [facility] atorvastati 2021-11 Yes TAKE 1 Univ ers n (LIPITOR) 1-12 TABLET BY ity of 20 mg 00:00: MOUTH [place] tablet 00 EVERY DAY MD Liane olivier [facility] atorvastati 2021-11 Yes TAKE 1 Univ ers n (LIPITOR) 1-12 TABLET BY ity of 20 mg 00:00: MOUTH [place] tablet 00 EVERY DAY [facility] at[facility]vastati 2021-11 Yes TAKE 1 Univ ers n (LIPITOR) 1-12 TABLET BY ity of 20 mg 00:00: MOUTH [place] tablet 00 EVERY DAY MD Rob [facility] atorvastati 2021-11 Yes TAKE 1 Univ ers n (LIPITOR) 1-12 TABLET BY ity of 20 mg 00:00: MOUTH [place] tablet 00 [facility] atorvastati 2021-11 Yes TAKE 1 Univ ers n (LIPITOR) 1-12 TABLET BY ity of 20 mg 00:00: MOUTH [place] tablet 00 [facility] DAY [facility] atorvastadeanne 2021-11 Yes TAKE 1 Univ ers n (LIPITOR) 1-12 TABLET BY ity of 20 mg 00:00: MOUTH [place] tablet 00 EVERY DAY [facility] atorvastadeanne 2021-11 Yes TAKE 1 Univ ers n (LIPITOR) 1-12 TABLET BY ity of 20 mg 00:00: MOUTH [place] tablet 00 EVERY DAY [facility] atorvastati 2021-11 Yes TAKE 1 Univ ers n (LIPITOR) 1-12 TABLET BY ity of 20 mg 00:00: MOUTH [place] tablet 00 EVERY DAY [facility] ALPRAZolam 2021-11 Yes 2mg Take 2 mg Un ally 2 mg tablet 1-12 by mouth 3 it y of 00:00: (three) [place] 00 times Medical daily as Branch needed. atorvastati 2021-11 Yes 20mg Take 20 mg Univers n 20 mg 1-12 by mouth ity of tablet 00:00: in the [place] 00 morning. Medical Branch ALPRAZolam 2021-11 Yes 2mg Take 2 mg Un ally 2 mg tablet 1-12 by mouth 3 it y of 00:00: (three) [place] 00 times Medical daily as Branch needed. atorvastati 2021-11 Yes 20mg Take 20 mg Univers n 20 mg 1-12 by mouth ity of tablet 00:00: in the [place] 00 morning. Medical Branch ALPRAZolam 2021-11 Yes 2mg Take 2 mg Un ally 2 mg tablet 1-12 by mouth 3 it y of 00:00: (three) [place] 00 times Medical daily as Branch needed. atorvastati 2- Yes 20mg Take 20 mg Univers n 20 mg 1-12 by mouth ity of tablet 00:00: in the [place] 00 morning. Medical Branch ALPRAZolam 2021- Yes 2mg Take 2 mg Un ally 2 mg tablet 1-12 by mouth 3 it y of 00:00: (three) [place] 00 times Medical daily as Branch needed. atorvastati 2-1 Yes 20mg Take 20 mg Univers n 20 mg 1-12 by mouth ity of tablet 00:00: in the [place] 00 morning. Medical Branch ALPRAZolam 2021- Yes 2mg Take 2 mg Un ally 2 mg tablet 1-12 by mouth 3 it y of 00:00: (three) [place] 00 times Medical daily as Branch needed. atorvastati 2021- Yes 20mg Take 20 mg Univers n 20 mg 1-12 by mouth ity of tablet 00:00: in the [place] 00 morning. Medical Branch ALPRAZolam 2021- Yes 2mg Take 2 mg Un ally 2 mg tablet 1-12 by mouth 3 it y of 00:00: (three) [place] 00 times Medical daily as Branch needed. atorvastati 2021- Yes 20mg Take 20 mg Univers n 20 mg 1-12 by mouth ity of tablet 00:00: in the [place] 00 morning. Medical Branch ALPRAZolam 2021- Yes 2mg Take 2 mg Un ally 2 mg tablet 1-12 by mouth 3 it y of 00:00: (three) [place] 00 times Medical daily as Branch needed. atorvastati 2-1 Yes 20mg Take 20 mg Univers n 20 mg 1-12 by mouth ity of tablet 00:00: in the [place] 00 morning. Medical Branch ALPRAZolam 2021- Yes 2mg Take 2 mg Un ally 2 mg tablet 1-12 by mouth 3 it y of 00:00: (three) [place] 00 times Medical daily as Branch needed. atorvastati 2-1 Yes 20mg Take 20 mg Univers n 20 mg 1-12 by mouth ity of tablet 00:00: in the [place] 00 morning. Medical Branch ALPRAZolam 2021-1 Yes 2mg Take 2 mg Un ally 2 mg tablet 1-12 by mouth 3 it y of 00:00: (three) [place] 00 times Medical daily as Branch needed. atorvastati 2021- Yes 20mg Take 20 mg Univers n 20 mg 1-12 by mouth ity of tablet 00:00: in the [place] 00 morning. Medical Branch ALPRAZolam 2021- Yes 2mg Take 2 mg Un ally 2 mg tablet 1-12 by mouth 3 it y of 00:00: (three) [place] 00 times Medical daily as Branch needed. atorvastati 2021- Yes 20mg Take 20 mg Univers n 20 mg 1-12 by mouth ity of tablet 00:00: in the [place] 00 morning. Medical Branch ALPRAZolam 2021- Yes 2mg Take 2 mg Un ally 2 mg tablet 1-12 by mouth 3 it y of 00:00: (three) [place] 00 times Medical daily as Branch needed. atorvastati 2021- Yes 20mg Take 20 mg Univers n 20 mg 1-12 by mouth ity of tablet 00:00: in the [place] 00 morning. Medical Branch ALPRAZolam 2021- Yes 2mg Take 2 mg Un ally 2 mg tablet 1-12 by mouth 3 it y of 00:00: (three) [place] 00 times Medical daily as Branch needed. atorvastati 2021- Yes 20mg Take 20 mg Univers n 20 mg 1-12 by mouth ity of tablet 00:00: in the [place] 00 morning. Medical Branch ALPRAZolam 2021- Yes 2mg Take 2 mg Un ally 2 mg tablet 1-12 by mouth 3 it y of 00:00: (three) [place] 00 times Medical daily as Branch needed. atorvastati 2021- Yes 20mg Take 20 mg Univers n 20 mg 1-12 by mouth ity of tablet 00:00: in the [place] 00 morning. Medical Branch ALPRAZolam 2021- Yes 2mg Take 2 mg Un ally 2 mg tablet 1-12 by mouth 3 it y of 00:00: (three) [place] 00 times Medical daily as Branch needed. atorvastati 2021- Yes 20mg Take 20 mg Univers n 20 mg 1-12 by mouth ity of tablet 00:00: in the [place] 00 morning. Medical Branch ALPRAZolam 2021-1 Yes 2mg Take 2 mg Un ally 2 mg tablet 1-12 by mouth 3 it y of 00:00: (three) [place] 00 times Medical daily as Branch needed. atorvastati 2021-11 Yes 20mg Take 20 mg Univers n 20 mg 1-12 by mouth ity of tablet 00:00: in the [place] 00 morning. Medical Branch ALPRAZolam 2021-11 Yes 2mg Take 2 mg Un ally 2 mg tablet 1-12 by mouth 3 it y of 00:00: (three) [place] 00 times Medical daily as Branch needed. atorvastati 2021-11 Yes 20mg Take 20 mg Univers n 20 mg 1-12 by mouth ity of tablet 00:00: in the [place] 00 morning. Medical Branch ALPRAZolam 2021-11 Yes 2mg Take 2 mg Un ally 2 mg tablet 1-12 by mouth 3 it y of 00:00: (three) [place] 00 times Medical daily as Branch needed. atorvastati 2021-11 Yes 20mg Take 20 mg Univers n 20 mg 1-12 by mouth ity of tablet 00:00: in the [place] 00 morning. Medical Branch ALPRAZolam 2021-11 Yes 2mg Take 1 Unive rs 2 mg tablet 1-12 tablet by ity of 00:00: mouth 3 [place] (three) Medical times Branch daily as needed. atorvastati 2021-11 Yes 20mg Take 1 Univ ers n 20 mg 1-12 tablet by ity of tablet 00:00: mouth in [place] 00 the Medical morning. Branch ALPRAZolam 2021-11 Yes 2mg Take 1 Unive rs 2 mg tablet 1-12 tablet by ity of 00:00: mouth 3 [place] (three) Medical times Branch daily as needed. atorvastati 2021-11 Yes 20mg Take 1 Univ ers n 20 mg 1-12 tablet by ity of tablet 00:00: mouth in [place] 00 the Medical morning. Branch ALPRAZolam 2021-11 Yes 2mg Take 1 Unive rs 2 mg tablet 1-12 tablet by ity of 00:00: mouth 3 [place] (three) Medical times Branch daily as needed. atorvastati 2021-11 Yes 20mg Take 1 Univ ers n 20 mg 1-12 tablet by ity of tablet 00:00: mouth in [place] 00 the Medical morning. Branch ALPRAZolam 2021-11 [...] by ity of tablet 00:00: mouth in [place] 00 the Medical morning. Branch ALPRAZolam 2021-11 Yes 2mg Take 1 Unive rs 2 mg tablet 1-12 tablet by ity of 00:00: mouth 3 (three) Medical times Branch daily as needed. atorvastati 2021-11 Yes 20mg Take 1 Univ ers n 20 mg 1-12 tablet by ity of tablet 00:00: mouth in [place] 00 the Medical morning. Branch ALPRAZolam 2021-11 Yes 2mg Take 1 Unive rs 2 mg tablet 1-12 tablet by ity of 00:00: mouth 3 (three) Medical times Branch daily as needed. atorvastati 2021-11 Yes 20mg Take 1 Univ ers n 20 mg 1-12 tablet by ity of tablet 00:00: mouth in [place] 00 the Medical morning. Branch ALPRAZolam 2021-11 Yes 2mg Take 1 Unive rs 2 mg tablet 1-12 tablet by ity of 00:00: mouth 3 (three) Medical times Branch daily as needed. atorvastati 2021-11 Yes 20mg Take 1 Univ ers n 20 mg 1-12 tablet by ity of tablet 00:00: mouth in [place] 00 the Medical morning. Branch ALPRAZolam 2021-11 Yes 2mg Take 1 Unive rs 2 mg tablet 1-12 tablet by ity of 00:00: mouth 3 00 (three) Medical times Branch daily as needed. atorvastati 2021-11 Yes 20mg Take 1 Univ ers n 20 mg 1-12 tablet by ity of tablet 00:00: mouth in [place] 00 the Medical morning. Branch ALPRAZolam 2021-11 Yes 2mg Take 1 Unive rs 2 mg tablet 1-12 tablet by ity of 00:00: mouth 3 [place] 00 (three) Medical times Branch daily as needed. atorvastati 2021-11 Yes 20mg Take 1 Univ ers n 20 mg 1-12 tablet by ity of tablet 00:00: mouth in [place] 00 the Medical morning. Branch hydrocortis 2021-11 Yes APPLY Unive rs one 1 % 1-10 TWICE ity of cream 00:00: DAILY IN [place] 00 AND AROUND Medical THE RECTUM Branch AFTER S[facility]Z [facility] hydrocortis 2021-11 Yes APPLY Unive rs one 1 % 1-10 TWICE ity of cream 00:00: DAILY IN [place] 00 AND AROUND Medical THE RECTUM Branch AFTER S[facility]Z [place] hydrocortis 2021-11 Yes APPLY Unive rs one 1 % 1-10 TWICE ity of cream 00:00: DAILY IN [place] 00 AND AROUND Medical THE RECTUM Branch AFTER S[facility]Z [place] hydrocortis 2021-11 Yes APPLY Unive rs one 1 % 1-10 TWICE ity of cream 00:00: DAILY IN [place] 00 AND AROUND Medical THE RECTUM Branch AFTER S[facility]Z [place] hydrocortis 2021-11 Yes APPLY Unive rs one 1 % 1-10 TWICE ity of cream 00:00: DAILY IN [place] 00 AND AROUND Medical THE RECTUM Branch AFTER S[facility]Z [place] hydrocortis 2021-11 Yes APPLY Unive rs one 1 % 1-10 TWICE ity of cream 00:00: DAILY IN [place] 00 AND AROUND Medical THE RECTUM Branch AFTER S[facility]Z [place] hydrocortis 2021-11 Yes APPLY Unive rs one 1 % 1-10 TWICE ity of cream 00:00: DAILY IN [place] 00 AND AROUND Medical THE RECTUM Branch AFTER S[facility]Z [place] hydrocortis 2021-11 Yes APPLY Unive rs one 1 % 1-10 TWICE ity of cream 00:00: DAILY IN [place] 00 AND AROUND Medical THE RECTUM Branch AFTER S[facility]Z [place] hydrocortis 2021-11 Yes APPLY Unive rs one 1 % 1-10 TWICE ity of cream 00:00: DAILY IN [place] 00 AND AROUND Medical THE RECTUM Branch AFTER S[place]Z [place] hydrocortis 2021-11 Yes APPLY Unive rs one 1 % 1-10 TWICE ity of cream 00:00: DAILY IN [place] 00 AND AROUND Medical THE RECTUM Branch AFTER S[place]Z [place] hydrocortis 2021-11 Yes APPLY Unive rs one 1 % 1-10 TWICE ity of cream 00:00: DAILY IN [place] 00 AND AROUND Medical THE RECTUM Branch AFTER S[place]Z [place] hydrocortis 2021-11 Yes APPLY Unive rs one 1 % 1-10 TWICE ity of cream 00:00: DAILY IN [place] 00 AND AROUND Medical THE RECTUM Branch AFTER S[facility]Z [place] hydrocortis 2021-11 Yes APPLY Unive rs one 1 % 1-10 TWICE ity of cream 00:00: DAILY IN [place] 00 AND AROUND Medical THE RECTUM Branch AFTER S[facility]Z [place] hydrocortis 2021-11 Yes APPLY Unive rs one 1 % 1-10 TWICE ity of cream 00:00: DAILY IN [place] 00 AND AROUND Medical THE RECTUM Branch AFTER S[place]Z [place] hydrocortis 2021-11 Yes APPLY Unive rs one 1 % 1-10 TWICE ity of cream 00:00: DAILY IN [place] 00 AND AROUND Medical THE RECTUM Branch AFTER S[place]Z [place] hydrocortis 2021-11 Yes APPLY Unive rs one 1 % 1-10 TWICE ity of cream 00:00: DAILY IN [place] 00 AND AROUND Medical THE RECTUM Branch AFTER S[place]Z [place] hydrocortis 2021-11 Yes APPLY Unive rs one 1 % 1-10 TWICE ity of cream 00:00: DAILY IN [place] 00 AND AROUND Medical THE RECTUM Branch AFTER S[place]Z [place] hydrocortis 2021-11 Yes APPLY Unive rs one 1 % 1-10 TWICE ity of cream 00:00: DAILY IN [place] 00 AND AROUND Medical THE RECTUM Branch AFTER S[place]Z [place] hydrocortis 2021-11 Yes APPLY Unive rs one 1 % 1-10 TWICE ity of cream 00:00: DAILY IN [place] 00 AND AROUND Medical THE RECTUM Branch AFTER S[place]Z [place] hydrocortis 2021-11 Yes APPLY Unive rs one 1 % 1-10 TWICE ity of cream 00:00: DAILY IN [place] 00 AND AROUND Medical THE RECTUM Branch AFTER S[place]Z [place] hydrocortis 2021-11 Yes APPLY Unive rs one 1 % 1-10 TWICE ity of cream 00:00: DAILY IN [place] 00 AND AROUND Medical THE RECTUM Branch AFTER S[place]Z [place] hydrocortis 2021-11 Yes APPLY Unive rs one 1 % 1-10 TWICE ity of cream 00:00: DAILY IN [place] 00 AND AROUND Medical THE RECTUM Branch [...] TWICE ity of cream 00:00: DAILY IN [place] 00 AND AROUND Medical THE RECTUM Branch AFTER S[place]Z [place] hydrocortis 2021-11 Yes APPLY Unive rs one 1 % 1-10 TWICE ity of cream 00:00: DAILY IN [place] 00 AND AROUND Medical THE RECTUM Branch AFTER S[place]Z [place] hydrocortis 2021-11 Yes APPLY Unive rs one 1 % 1-10 TWICE ity of cream 00:00: DAILY IN [place] 00 AND AROUND Medical THE RECTUM Branch AFTER S[place]Z [place] hydrocortis 2021-11- No APPLY Univ ers one 1 % 11-10 TWICE ity of crpe 00:00: 00:00 DAILY IN [place] 00 :00 AND AROUND MD THE RECTUM [facility] hydrocortis 2021-11- No APPLY Univ ers one 1 % 11-10 TWICE ity of crpe 00:00: 00:00 DAILY IN [place] 00 :00 AND AROUND MD THE RECTUM [place] [facility] hydrocortis 2021-11- No APPLY Univ ers one 1 % 11-10 TWICE ity of crpe 00:00: 00:00 DAILY IN [place] 00 :00 AND AROUND MD THE RECTUM [...] ity of crpe 00:00: 00:00 DAILY IN [place] 00 :00 AND AROUND MD THE RECTUM [place] [facility] hydrocortis 2021-11- No APPLY Univ ers one 1 % 11-10- TWICE ity of crpe 00:00: 00:00 DAILY IN [place] 00 :00 AND AROUND MD [facility]CTUM [facility] Univ ers one 1 % 11-10 TWICE ity of crpe 00:00: 00:00 DAILY IN [place] 00 :00 AND AROUND MD THE RECTUM [place] AFTER [facility] 2021-11- No APPLY Univ ers one 1 % 11-10 TWICE ity of crpe 00:00: 00:00 DAILY IN [place] 00 :00 AND AROUND MD THE RECTUM [place] AFTER [facility] 2021-11- No APPLY Univ ers one 1 % 11-10 TWICE ity of crpe 00:00: 00:00 DAILY IN [place] 00 :00 AND AROUND MD THE RECTUM [place] AFTER [facility] benzonatate 2021-11 Yes TAKE 1 Univ ers 100 mg 1-05 CAPSULE BY ity of capsule 00:00: MOUTH [place] 00 THREE Medical TIMES Branch DAILY NEEDED [...] by ity of tablet 00:00: mouth in [place] 00 the Medical morning Branch and 0.1 mg at noon and 0.1 mg in the evening. benzonatate 2021-11 Yes TAKE 1 Univ ers 100 mg 1-05 CAPSULE BY ity of capsule 00:00: MOUTH [place] [id number] THREE Medical TIMES Branch DAILY NEEDED FOR [...] by ity of tablet 00:00: mouth in [place] 00 the Medical morning Branch and 0.1 mg at noon and 0.1 mg in the evening. benzonatate 2021-11 Yes TAKE 1 Univ ers 100 mg 1-05 CAPSULE BY ity of capsule 00:00: MOUTH [place] THREE Medical TIMES Branch DAILY NEEDED FOR [...] by ity of tablet 00:00: mouth in [place] 00 the Medical morning Branch and 0.1 mg at noon and 0.1 mg in the evening. benzonatate 2021-11 Yes TAKE 1 Univ ers 100 mg 1-05 CAPSULE BY ity of capsule 00:00: MOUTH [place] 00 THREE Medical TIMES Branch DAILY NEEDED [...] by ity of tablet 00:00: mouth in [place] 00 the Medical morning Branch and 0.1 [...] by ity of tablet 00:00: mouth in [place] 00 the Medical morning Branch and 0.1 [...] by ity of tablet 00:00: mouth in [place] 00 the Medical morning Branch and 0.1 mg at noon and 0.1 mg in the evening. benzonatate 2021-11 Yes TAKE 1 Univ ers 100 mg 1-05 CAPSULE BY ity of capsule 00:00: MOUTH [place] THREE Medical TIMES Branch DAILY NEEDED FOR [...] by ity of tablet 00:00: mouth in [place] 00 the Medical morning Branch and 0.1 mg at noon and 0.1 mg in the evening. benzonatate 2021-11 Yes TAKE 1 Univ ers 100 mg 1-05 CAPSULE BY ity of capsule 00:00: MOUTH [place] [id number] THREE Medical TIMES Branch DAILY NEEDED FOR [...] by ity of tablet 00:00: mouth in [place] 00 the Medical morning Branch and 0.1 mg at noon and 0.1 mg in the evening. benzonatate 2021-11 Yes TAKE 1 Univ ers 100 mg 1-05 CAPSULE BY ity of capsule 00:00: MOUTH [place] THREE Medical TIMES Branch DAILY NEEDED FOR [...] by ity of tablet 00:00: mouth in [place] the Medical morning Branch and 0.1 mg at noon and 0.1 mg in the evening. benzonatate 2021-11 Yes TAKE 1 Univ ers 100 mg 1-05 CAPSULE BY ity of capsule 00:00: MOUTH [place] THREE Medical TIMES Branch DAILY NEEDED FOR [...] by ity of tablet 00:00: mouth in [place] 00 the Medical morning Branch and 0.1 [...] by ity of tablet 00:00: mouth in [place] 00 the Medical morning Branch and 0.1 [...] by ity of tablet 00:00: mouth in [place] 00 the Medical morning Branch and 0.1 [...] by ity of tablet 00:00: mouth in [place] 00 the Medical morning Branch and 0.1 mg at noon and 0.1 mg in the evening. benzonatate 2021-11 Yes TAKE 1 Univ ers 100 mg 1-05 CAPSULE BY ity of capsule 00:00: MOUTH [place] THREE Medical TIMES Branch DAILY NEEDED FOR [...] by ity of tablet 00:00: mouth in [place] the Medical morning Branch and 0.1 mg at noon and 0.1 mg in the evening. benzonatate 2021-11 Yes TAKE 1 Univ ers 100 mg 1-05 CAPSULE BY ity of capsule 00:00: MOUTH [place] THREE Medical TIMES Branch DAILY NEEDED FOR [...] by ity of tablet 00:00: mouth in [place] the Medical morning Branch and 0.1 mg at noon and 0.1 mg in the evening. benzonatate 2021-11 Yes TAKE 1 Univ ers 100 mg 1-05 CAPSULE BY ity of capsule 00:00: MOUTH [place] [address] THREE Medical TIMES Branch DAILY NEEDED FOR [...] by ity of tablet 00:00: mouth in [place] the Medical morning Branch and 0.1 mg at noon and 0.1 mg in the evening. benzonatate 2021-11 Yes TAKE 1 Univ ers 100 mg 1-05 CAPSULE BY ity of capsule 00:00: MOUTH [place] 00 THREE Medical TIMES Branch DAILY NEEDED [...] by ity of tablet 00:00: mouth in [place] the Medical morning Branch and 0.1 mg at noon and 0.1 mg in the evening. benzonatate 2021-11 Yes TAKE 1 Univ ers 100 mg 1-05 CAPSULE BY ity of capsule 00:00: MOUTH [place] [address] THREE Medical TIMES Branch DAILY NEEDED FOR COUGH codeine-gua 2021-11 Yes TAKE 10 ML Univers ifenesin 1-05 BY MOUTH ity of 10-100 mg/5 00:00: TWICE [place] mL oral 00 DAILY Medical solution NEEDED FOR Branc h COUGH metoprolol 2021-11 Yes 50mg Take 1 Unive rs succinate 1-05 tablet by ity o f XL 50 mg 24 00:00: mouth in [place] hr tablet 00 the Medical morning Branch and 1 tablet in the evening. oseltamivir 2021-11 Yes TAKE ONE Un ally 75 mg 1-05 (1) ity of capsule 00:00: CAPSULE(S[place] 00 BY MOUTH Medical TWICE A Branch DAY. cloNIDine 2021-11 Yes .1mg Take 1 Univer s 0.1 mg 1-05 tablet by ity of tablet 00:00: mouth in [place] the Medical morning Branch and 1 tablet [...] by ity of tablet 00:00: mouth in [place] the Medical morning and 1 tablet at noon and 1 tablet in the evening. benzonatate 2021-11 Yes TAKE 1 Univ ers 100 mg 1-05 CAPSULE BY ity of capsule 00:00: MOUTH [place] THREE Medical TIMES [place] DAILY NEEDED FOR COUGH codeine-gua 2021-11 Yes [...] by ity of tablet 00:00: mouth in [place] the Medical morning Branch and 1 tablet at noon and 1 tablet in the evening. benzonatate 2021-11 Yes TAKE 1 Univ ers 100 mg 1-05 CAPSULE BY ity of capsule 00:00: MOUTH [place] 00 THREE Medical TIMES [place] DAILY NEEDED FOR COUGH codeine-gua 2021-11 Yes [...] by ity of tablet 00:00: mouth in [place] the Medical morning Branch and 1 tablet at noon and 1 tablet in the evening. benzonatate 2021-11 Yes TAKE 1 Univ ers 100 mg 1-05 CAPSULE BY ity of capsule 00:00: MOUTH [place] [address] THREE Medical TIMES [place] DAILY NEEDED FOR COUGH codeine-gua 2021-11 Yes [...] by ity of tablet 00:00: mouth in [place] the Medical morning Branch and 1 tablet at noon and 1 tablet in the evening. benzonatate 2021-11 Yes TAKE 1 Univ ers 100 mg 1-05 CAPSULE BY ity of capsule 00:00: MOUTH [place] THREE Medical TIMES [place] DAILY NEEDED FOR COUGH codeine-gua 2021-11 Yes [...] by ity of tablet 00:00: mouth in [place] the Medical morning Branch and 1 tablet at noon and 1 tablet in the evening. benzonatate 2021-11 Yes TAKE 1 [facility] ers 100 mg 1-05 CAPSULE BY ity of capsule 00:00: MOUTH [place] THREE Medical TIMES [place] DAILY NEEDED FOR COUGH codeine-gua 2021-11 Yes [...] by ity of tablet 00:00: mouth in [place] the Medical morning Branch and 1 tablet at noon and 1 tablet in the evening. benzonatate 2021-11 Yes TAKE 1 [facility] ers 100 mg 1-05 CAPSULE BY ity of capsule 00:00: MOUTH [place] [facility] Medical TIMES [place] DAILY NEEDED FOR COUGH codeine-gua 2021-11 Yes [...] by ity of tablet 00:00: mouth in [place] the Medical morning Branch and 1 tablet at noon and 1 tablet in the evening. benzonatate 2021-11 Yes TAKE 1 [facility] ers 100 mg 1-05 CAPSULE BY ity of capsule 00:00: MOUTH [place] [facility] TIMES [place] DAILY NEEDED FOR COUGH codeine-gua 2021-11 Yes [...] by ity of tablet 00:00: mouth in [place] the Medical morning Branch and 1 tablet at noon and 1 tablet in the evening. benzonatate 2021-11 Yes TAKE 1 [facility] ers 100 mg 1-05 CAPSULE BY ity of capsule 00:00: MOUTH [address] TIMES [place] DAILY NEEDED FOR COUGH codeine-gua 2021-11 Yes [...] tablet in the evening. LISINOPRIL 2021-11 Yes [id number] TAKE 1/2 [facility] 40 mg 1-04 TABLET BY ity of tablet 00:00: MOUTH [place] 00 TWICE Medical DAILY Branch LISINOPRIL 2021-11 Yes [id number] TAKE 1/2 [facility] 40 mg 1-04 TABLET BY ity of tablet 00:00: MOUTH [place] 00 TWICE Medical DAILY Branch LISINOPRIL 2021-11 Yes [id number] TAKE 1/2 [facility] 40 mg 1-04 TABLET BY ity of tablet 00:00: MOUTH [place] 00 TWICE Medical DAILY Branch LISINOPRIL 2021-11 Yes [id number] TAKE 1/2 [facility] 40 mg 1-04 TABLET BY ity of tablet 00:00: MOUTH [place] 00 TWICE Medical DAILY Branch LISINOPRIL 2021-11 Yes [id number] TAKE 1/2 [facility] 40 mg 1-04 TABLET BY ity of tablet 00:00: MOUTH [place] 00 TWICE Medical DAILY Branch LISINOPRIL 2021-11 Yes [id number] TAKE 1/2 [facility] 40 mg 1-04 TABLET BY ity of tablet 00:00: MOUTH [place] 00 TWICE Medical DAILY Branch LISINOPRIL 2021-11 Yes [id number] TAKE 1/2 [facility] 40 mg 1-04 TABLET BY ity of tablet 00:00: MOUTH [place] 00 TWICE Medical DAILY Branch LISINOPRIL 2021-11 No [id number] TAKE 1/2 [facility] 40 mg 1-04 - TABLET BY ity of tablet 00:00: 00:00 MOUTH [place] 00 :00 TWICE Medical DAILY Branch hydrALAZINE 2021-11 Yes [id number] TAKE 1 [facility] 100 mg 1-03 TABLET BY ity of tablet 00:00: MOUTH [place] 00 THREE Medical TIMES Branch DAILY lisinopriL 2021-11 Yes [id number] TAKE 1/2 [facility] 40 mg 1-03 TABLET BY ity of tablet 00:00: MOUTH [place] 00 TWICE Medical DAILY Branch metoprolol 2021-11 Yes TAKE 1 Unive rs tartrate 1-03 TABLET BY ity of 100 mg 00:00: MOUTH [place] tablet 00 TWICE Medical DAILY Branch hydrALAZINE 2021-11 Yes [id number] TAKE 1 [facility] 100 mg 1-03 TABLET BY ity of tablet 00:00: MOUTH [place] 00 THREE Medical TIMES Branch DAILY metoprolol 2021-11 Yes TAKE 1 Unive rs tartrate 1-03 TABLET BY ity of 100 mg 00:00: MOUTH [place] tablet 00 TWICE Medical DAILY Branch hydrALAZINE 2021-11 Yes [id number] TAKE 1 [facility] 100 mg 1-03 TABLET BY ity of tablet 00:00: MOUTH [place] 00 THREE Medical TIMES Branch DAILY metoprolol 2021-11 Yes TAKE 1 Unive rs tartrate 1-03 TABLET BY ity of 100 mg 00:00: MOUTH [place] tablet 00 TWICE Medical DAILY Branch hydrALAZINE 2021-11 Yes [id number] TAKE 1 [facility] 100 mg 1-03 TABLET BY ity of tablet 00:00: MOUTH [place] 00 THREE Medical TIMES Branch DAILY metoprolol 2021-11 Yes TAKE 1 Unive rs tartrate 1-03 TABLET BY ity of 100 mg 00:00: MOUTH [place] tablet 00 TWICE Medical DAILY Branch hydrALAZINE 2021-11 Yes [id number] TAKE 1 [facility] 100 mg 1-03 TABLET BY ity of tablet 00:00: MOUTH [place] 00 THREE Medical TIMES Branch DAILY metoprolol 2021-11 Yes TAKE 1 Unive rs tartrate 1-03 TABLET BY ity of 100 mg 00:00: MOUTH [place] tablet 00 TWICE Medical DAILY Branch hydrALAZINE 2021-11 Yes [id number] TAKE 1 [facility] 100 mg 1-03 TABLET BY ity of tablet 00:00: MOUTH [place] 00 THREE Medical TIMES Branch DAILY metoprolol 2021-11 Yes TAKE 1 Unive rs tartrate 1-03 TABLET BY ity of 100 mg 00:00: MOUTH [place] tablet 00 TWICE Medical DAILY Branch hydrALAZINE 2021-11 Yes [id number] TAKE 1 [facility] 100 mg 1-03 TABLET BY ity of tablet 00:00: MOUTH [place] 00 THREE Medical TIMES Branch DAILY metoprolol 2021-11 Yes TAKE 1 Unive rs tartrate 1-03 TABLET BY ity of 100 mg 00:00: MOUTH [place] tablet 00 TWICE Medical DAILY Branch hydrALAZINE 2021-11 Yes [id number] TAKE 1 [facility] 100 mg 1-03 TABLET BY ity of tablet 00:00: MOUTH [place] 00 THREE Medical TIMES Branch DAILY metoprolol 2021-11 Yes TAKE 1 Unive rs tartrate 1-03 TABLET BY ity of 100 mg 00:00: MOUTH [place] tablet 00 TWICE Medical DAILY Branch hydrALAZINE 2021-11 Yes [id number] TAKE 1 [facility] 100 mg 1-03 TABLET BY ity of tablet 00:00: MOUTH [place] 00 THREE Medical TIMES Branch DAILY metoprolol 2021-11 Yes TAKE 1 Unive rs tartrate 1-03 TABLET BY ity of 100 mg 00:00: MOUTH [place] tablet 00 TWICE Medical DAILY Branch hydrALAZINE 2021-11 Yes [id number] TAKE 1 [facility] 100 mg 1-03 TABLET BY ity of tablet 00:00: MOUTH [place] 00 THREE Medical TIMES Branch DAILY metoprolol 2021-11 Yes TAKE 1 Unive rs tartrate 1-03 TABLET BY ity of 100 mg 00:00: MOUTH [place] tablet 00 TWICE Medical DAILY Branch hydrALAZINE 2021-11 Yes [id number] TAKE 1 [facility] 100 mg 1-03 TABLET BY ity of tablet 00:00: MOUTH [place] 00 THREE Medical TIMES Branch DAILY metoprolol 2021-11 Yes TAKE 1 [facility]ive rs tartrate 1-03 TABLET BY ity of 100 mg 00:00: MOUTH [place] tablet 00 TWICE Medical DAILY Branch hydrALAZINE 2021-11 Yes [id number] TAKE 1 [facility] 100 mg 1-03 TABLET BY ity of tablet 00:00: MOUTH [place] 00 THREE Medical TIMES Branch DAILY hydrALAZINE 2021-11 Yes [id number] TAKE 1 [facility] 100 mg 1-03 TABLET BY ity of tablet 00:00: MOUTH [place] 00 THREE Medical TIMES Branch DAILY hydrALAZINE 2021-113- No [id number] TAKE 1 [facility] 100 mg 1-03 01-09 TABLET BY ity of tablet 00:00: 00:00 MOUTH [place] 00 :00 THREE Medical TIMES Branch DAILY metoprolol 2021-11- No TAKE 1 [facility] ers tartrate 11-03 TABLET BY ity o f 100 mg 00:00: 00:00 MOUTH [place] tablet 00 :00 TWICE Medical DAILY Branch lisinopriL 2021-11- No [id number] TAKE 1/2 [facility] 40 mg 11-03 TABLET BY ity of tablet 00:00: 00:00 MOUTH [place] 00 :00 TWICE Medical DAILY Branch allopurinoL 2021-11 Yes 300mg Take 300 U nivers 300 mg 1-01 mg by ity of tablet 00:00: mouth in [place] [address] the Medical morning Branch and 300 mg in the evening. allopurinoL 2021-11 Yes 300mg Take 300 U nivers 300 mg 1-01 mg by ity of tablet 00:00: mouth in [place] [address] the Medical morning Branch and 300 mg in the evening. allopurinoL 2021-11 Yes 300mg Take 300 U nivers 300 mg 1-01 mg by ity of tablet 00:00: mouth in [place] [address] the Medical morning Branch and 300 mg in the evening. allopurinoL 2021-11 Yes 300mg Take 300 U nivers 300 mg 1-01 mg by ity of tablet 00:00: mouth in [place] [address] the Medical morning Branch and 300 mg in the evening. allopurinoL 2021-11 Yes 300mg Take 300 U nivers 300 mg 1-01 mg by ity of tablet 00:00: mouth in [place] [address] the Medical morning Branch and 300 mg in the evening. allopurinoL 2021-11 Yes 300mg Take 300 U nivers 300 mg 1-01 mg by ity of tablet 00:00: mouth in [place] [address] the Medical morning Branch and 300 mg in the evening. allopurinoL 2021-11 Yes 300mg Take 300 U nivers 300 mg 1-01 mg by ity of tablet 00:00: mouth in [place] [address] the Medical morning Branch and 300 mg in the evening. allopurinoL 2021-11 Yes 300mg Take 300 U nivers 300 mg 1-01 mg by ity of tablet 00:00: mouth in [place] [address] the Medical morning Branch and 300 mg in the evening. allopurinoL 2021-11 Yes 300mg Take 300 U nivers 300 mg 1-01 mg by ity of tablet 00:00: mouth in [place] 00 the Medical morning Branch and 300 mg in the evening. allopurinoL 2022-1 Yes 300mg Take 300 U nivers 300 mg 1-01 mg by ity of tablet 00:00: mouth in [place] 00 the Medical morning Branch and 300 mg in the evening. allopurinoL 2022-1 Yes 300mg Take 300 U nivers 300 mg 1-01 mg by ity of tablet 00:00: mouth in [place] 00 the Medical morning Branch and 300 mg in the evening. allopurinoL 2022-1 Yes 300mg Take 300 U nivers 300 mg 1-01 mg by ity of tablet 00:00: mouth in [place] 00 the Medical morning Branch and 300 mg in the evening. allopurinoL 2022-1 Yes 300mg Take 300 U nivers 300 mg 1-01 mg by ity of tablet 00:00: mouth in [place] [address] the Medical morning Branch and 300 mg in the evening. allopurinoL 2021-1 Yes 300mg Take 300 U nivers 300 mg 1-01 mg by ity of tablet 00:00: mouth in [place] [address] the Medical morning Branch and 300 mg in the evening. allopurinoL 2-1 Yes 300mg Take 300 U nivers 300 mg 1-01 mg by ity of tablet 00:00: mouth in [place] [address] the Medical morning Branch and 300 mg in the evening. allopurinoL 2021-1 Yes 300mg Take 300 U nivers 300 mg 1-01 mg by ity of tablet 00:00: mouth in [place] [address] the Medical morning Branch and 300 mg in the evening. allopurinoL 2021-1 Yes 300mg Take 300 U nivers 300 mg 1-01 mg by ity of tablet 00:00: mouth in [place] [address] the Medical morning Branch and 300 mg in the evening. allopurinoL 2-1 Yes 300mg Take 1 Uni vers 300 mg 1-01 tablet by ity of tablet 00:00: mouth in [place] [address] the Medical morning Branch and 1 tablet in the evening. allopurinoL 2022-1 Yes 300mg Take 1 [facility] vers 300 mg 1-01 tablet by ity of tablet 00:00: mouth in [place] [address] the Medical morning Branch and 1 tablet in the evening. allopurinoL 2022-1 Yes 300mg Take 1 [facility] vers 300 mg 1-01 tablet by ity of tablet 00:00: mouth in [place] [address] the Medical morning Branch and 1 tablet in the evening. allopurinoL 2021-11 Yes 300mg Take 1 [facility] vers 300 mg 1-01 tablet by ity of tablet 00:00: mouth in [place] 00 the Medical morning Branch and 1 tablet in the evening. allopurinoL 2021-11 Yes 300mg Take 1 [facility] vers 300 mg 1-01 tablet by ity of tablet 00:00: mouth in [place] 00 the Medical morning Branch and 1 tablet in the evening. allopurinoL 2021-11 Yes 300mg Take 1 [facility] vers 300 mg 1-01 tablet by ity of tablet 00:00: mouth in [place] 00 the Medical morning Branch and 1 tablet in the evening. allopurinoL 2021-11 Yes 300mg Take 1 [facility] vers 300 mg 1-01 tablet by ity of tablet 00:00: mouth in [place] 00 the Medical morning Branch and 1 tablet in the evening. allopurinoL 2021-11 Yes 300mg Take 1 [facility] vers 300 mg 1-01 tablet by ity of tablet 00:00: mouth in [place] 00 the Medical morning Branch and 1 tablet in the evening. allopurinoL 2021-11 Yes 300mg Take 1 [facility] vers 300 mg 1-01 tablet by ity of tablet 00:00: mouth in [place] 00 the Medical morning Branch and 1 tablet in the evening. allopurinoL 2021-11 Yes 300mg Take 1 [facility] vers 300 mg 1-01 tablet by ity of tablet 00:00: mouth in [place] 00 the Medical morning Branch and 1 tablet in the evening. allopurinol 2021-11- No TAKE 1 Uni vers (ZYLOPRIM) 11-01 03-20 TABLET BY ity of 300 mg 00:00: 00:00 MOUTH [place] tablet 00 :00 TWICE MD DAILY [facility] allopurinol 2021-11- No TAKE 1 Uni vers (ZYLOPRIM) 11-01 03-20 TABLET BY ity of 300 mg 00:00: 00:00 MOUTH [place] tablet 00 :00 TWICE MD DAILY [facility] allopurinol 2021-11- No TAKE 1 Uni vers (ZYLOPRIM) 11-01 03-20 TABLET BY ity of 300 mg 00:00: 00:00 MOUTH [place] tablet 00 :00 TWICE MD DAILY [facility] allopurinol 2021-11- No TAKE 1 Uni vers (ZYLOPRIM) 1-01 03-20 TABLET BY ity of 300 mg 00:00: 00:00 MOUTH [place] tablet 00 :00 TWICE MD DAILY [facility] allopurinol 2021-11- No TAKE 1 Uni vers (ZYLOPRIM) 11-01-20 TABLET BY ity of 300 mg 00:00: 00:00 MOUTH [place] tablet 00 :00 TWICE MD DAILY [facility] allopurinol 2021-11- No TAKE 1 Uni vers (ZYLOPRIM) 11-01-20 TABLET BY ity of 300 mg 00:00: 00:00 MOUTH [place] tablet 00 :00 TWICE MD DAILY [facility] allopurinol 2021-11- No TAKE 1 Uni vers (ZYLOPRIM) 11-01-20 TABLET BY ity of 300 mg 00:00: 00:00 MOUTH [place] tablet 00 :00 TWICE MD DAILY [facility] allopurinol 2021-11- No TAKE 1 Uni vers (ZYLOPRIM) 11-01-20 TABLET BY ity of 300 mg 00:00: 00:00 MOUTH [place] tablet 00 :00 TWICE MD DAILY [facility] allopurinol 2021-11- No TAKE 1 Uni vers (ZYLOPRIM) 11-01-20 TABLET BY ity of 300 mg 00:00: 00:00 MOUTH [place] tablet 00 :00 TWICE MD DAILY [facility] triamcinolo 2021-11 Yes APPLY Unive rs [...] triamcinolo 2021-11- No APPLY Univ ers ne 0 03-14 TOPICALLY ity of (KENALOG) 00:00: 00:00 TO THE [place] 0.1% cream 00 :00 AFFECTED MD AREA TWICE [place] DAILY [facility] 2021-11- No APPLY Univ ers ne 028 03-14 TOPICALLY ity of (KENALOG) 00:00: 00:00 TO THE [place] 0.1% cream 00 :00 AFFECTED MD AREA TWICE [place] DAILY [facility] 2021-11- No APPLY Univ ers ne 0-14 TOPICALLY ity of (KENALOG) 00:00: 00:00 TO THE [place] 0.1% cream 00 :00 AFFECTED MD AREA TWICE [place] DAILY [facility] 2021-11- No APPLY Univ ers ne 0-14 TOPICALLY ity of (KENALOG) 00:00: 00:00 TO THE [place] 0.1% cream 00 :00 AFFECTED MD AREA TWICE [place] DAILY [facility] 2021-11- No APPLY Univ ers ne 0-14 TOPICALLY ity of (KENALOG) 00:00: 00:00 TO THE [place] 0.1% cream 00 :00 AFFECTED MD AREA TWICE [place] DAILY [facility] 2021-11- No APPLY Univ ers ne 0-14 TOPICALLY ity of (KENALOG) 00:00: 00:00 TO THE [place] 0.1% cream 00 :00 AFFECTED MD AREA TWICE [place] DAILY [facility] 2021-11- No APPLY Univ ers ne 0-14 TOPICALLY ity of (KENALOG) 00:00: 00:00 TO THE [place] 0.1% cream 00 :00 AFFECTED MD AREA TWICE [place] DAILY [facility] 2021-11- No APPLY Univ ers ne 0 03-14 TOPICALLY ity of (KENALOG) 00:00: 00:00 TO THE [place] 0.1% cream 00 :00 AFFECTED MD AREA TWICE [place] DAILY [facility] 2021-11- No APPLY Univ ers ne 0 03-14 TOPICALLY ity of (KENALOG) 00:00: 00:00 TO THE [place] 0.1% cream 00 :00 AFFECTED MD AREA TWICE [place] DAILY [facility] ketorolac 2021-11- No [id number] 30mg [facility] (TORADOL) 0-25 08-25 ity of injection 16:45: 16:45 [place] 30 mg 00 :00 [facility] ketorolac 2021-11- No [id number] 30mg 30 mg, [facility] (TORADOL) 0-25 08-25 Intramuscu ity of injection 16:45: 16:45 [place], ONCE, [place] 30 mg 00 :00 1 dose, On [facility] 08/25/22 at 1145, Routine ketorolac 2021-11- No [id number] 30mg [facility] (TORADOL) 0-25 08-25 ity of injection 16:45: 16:45 [place] 30 mg 00 :00 [facility] ketorolac 2021-11- No [id number] 30mg 30 mg, [facility] (TORADOL) 0-25 08-25 Intramuscu ity of injection 16:45: 16:45 [place], ONCE, [place] 30 mg 00 :00 1 dose, On [facility] 08/25/22 at 1145, Routine rizatriptan 2021-11 Yes [id number] 5mg Take 1 [facility] 5 mg 0-25 9105 tablet by ity of disintegrat 00:00: mouth as [place] ing tablet 00 needed for Med ical Migraine Branch (take 1 on onset of migraine and can repeat in 2 hrs). May repeat in 2 hours if needed rizatriptan 2021-11 Yes [id number] 5mg Take 1 [facility] 5 mg 0-25 9105 tablet by ity of disintegrat 00:00: mouth as [place] ing tablet 00 needed for Med ical Migraine Branch (take 1 on onset of migraine and can repeat in 2 hrs). May repeat in 2 hours if needed rizatriptan 2021-11 Yes [id number] 5mg Take 1 [facility] 5 mg 0-25 9105 tablet by ity of disintegrat 00:00: mouth as [place] ing tablet 00 needed for Med ical Migraine Branch (take 1 on onset of migraine and can repeat in 2 hrs). May repeat in 2 hours if needed rizatriptan 2021-11 Yes [id number] 5mg Take 1 [facility] 5 mg 0-25 9105 tablet by ity of disintegrat 00:00: mouth as [place] ing tablet 00 needed for Med ical Migraine Branch (take 1 on onset of migraine and can repeat in 2 hrs). May repeat in 2 hours if needed rizatriptan 2021-11 Yes [id number] 5mg Take 1 [facility] 5 mg 0-25 9105 tablet by ity of disintegrat 00:00: mouth as [place] tablet 00 needed for Med ical Migraine Branch (take 1 on onset of migraine and can repeat in 2 hrs). May repeat in 2 hours if needed rizatriptan 2021-11 Yes [id number] 5mg Take 1 [facility] 5 mg 0-25 9105 tablet by ity of disintegrat 00:00: mouth as [place] ing tablet 00 needed for Med ical Migraine Branch (take 1 on onset of migraine and can repeat in 2 hrs). May repeat in 2 hours if needed rizatriptan 2021-11 Yes [id number] 5mg Take 1 [facility] 5 mg 0-25 9105 tablet by ity of disintegrat 00:00: mouth as [place] ing tablet 00 needed for Med ical Migraine Branch (take 1 on onset of migraine and can repeat in 2 hrs). May repeat in 2 hours if needed rizatriptan 2021-11 Yes [id number] 5mg Take 1 [facility] 5 mg 0-25 9105 tablet by ity of disintegrat 00:00: mouth as [place] ing tablet 00 needed for Med ical Migraine Branch (take 1 on onset of migraine and can repeat in 2 hrs). May repeat in 2 hours if needed rizatriptan 2021-11 Yes [id number] 5mg Take 1 [facility] 5 mg 0-25 9105 tablet by ity of disintegrat 00:00: mouth as [place] ing tablet 00 needed for Med ical Migraine Branch (take 1 on onset of migraine and can repeat in 2 hrs). May repeat in 2 hours if needed rizatriptan 2021-11 Yes [id number] 5mg Take 1 [facility] 5 mg 0-25 9105 tablet by ity of disintegrat 00:00: mouth as [place] ing tablet 00 needed for Med ical Migraine Branch (take 1 on onset of migraine and can repeat in 2 hrs). May repeat in 2 hours if needed rizatriptan 2021-11 Yes [id number] 5mg Take 1 [facility] 5 mg 0-25 9105 tablet by ity of disintegrat 00:00: mouth as [place] ing tablet 00 needed for Med ical Migraine Branch (take 1 on onset of migraine and can repeat in 2 hrs). May repeat in 2 hours if needed rizatriptan 2021-11 Yes [id number] 5mg Take 1 [facility] 5 mg 0-25 9105 tablet by ity of disintegrat 00:00: mouth as [place] tablet 00 needed for Med ical Migraine Branch (take 1 on onset of migraine and can repeat in 2 hrs). May repeat in 2 hours if needed rizatriptan 2021-11 Yes [id number] 5mg Take 1 [facility] 5 mg 0-25 9105 tablet by ity of disintegrat 00:00: mouth [place] tablet 00 needed for Med ical Migraine Branch (take 1 on onset of migraine and can repeat in 2 hrs). May repeat in 2 hours if needed rizatriptan 2021-11 Yes [id number] 5mg Take 1 [facility] 5 mg 0-25 9105 tablet by ity of disintegrat 00:00: mouth as [place] tablet 00 needed for Med ical Migraine Branch (take 1 on onset of migraine and can repeat in 2 hrs). May repeat in 2 hours if needed rizatriptan 2021-11 Yes [id number] 5mg Take 1 [facility] 5 mg 0-25 9105 tablet by ity of disintegrat 00:00: mouth [place] tablet 00 needed for Med ical Migraine Branch (take 1 on onset of migraine and can repeat in 2 hrs). May repeat in 2 hours if needed rizatriptan 2021-11 Yes [id number] 5mg Take 1 [facility] 5 mg 0-25 9105 tablet by ity of disintegrat 00:00: mouth [place] tablet 00 needed for Med ical Migraine Branch (take 1 on onset of migraine and can repeat in 2 hrs). May repeat in 2 hours if needed rizatriptan 2021-11 Yes [id number] 5mg Take 1 [facility] 5 mg 0-25 9105 tablet by ity of disintegrat 00:00: mouth [place] ing tablet 00 needed for Med ical Migraine Branch (take 1 on onset of migraine and can repeat in 2 hrs). May repeat in 2 hours if needed rizatriptan 2021-11 Yes [id number] 5mg Take 1 [facility] 5 mg 0-25 9105 tablet by ity of disintegrat 00:00: mouth [place] tablet 00 needed for Med ical Migraine Branch (take 1 on onset of migraine and can repeat in 2 hrs). May repeat in 2 hours if needed rizatriptan 2021-11 Yes [id number] 5mg Take 1 [facility] 5 mg 0-25 9105 tablet by ity of disintegrat 00:00: mouth [place] tablet 00 needed for Med ical Migraine Branch (take 1 on onset of migraine and can repeat in 2 hrs). May repeat in 2 hours if needed rizatriptan 2021-11 Yes [id number] 5mg Take 1 [facility] 5 mg 0-25 9105 tablet by ity of disintegrat 00:00: mouth [place] tablet 00 needed for Med ical Migraine Branch (take 1 on onset of migraine and can repeat in 2 hrs). May repeat in 2 hours if needed rizatriptan 2021-11 Yes [id number] 5mg Take 1 [facility] 5 mg 0-25 9105 tablet by ity of disintegrat 00:00: mouth [place] tablet 00 needed for Med ical Migraine Branch (take 1 on onset of migraine and can repeat in 2 hrs). May repeat in 2 hours if needed rizatriptan 2021-11 Yes [id number] 5mg Take 1 [facility] 5 mg 0-25 9105 tablet by ity of disintegrat 00:00: mouth [place] tablet 00 needed for Med ical Migraine Branch (take 1 on onset of migraine and can repeat in 2 hrs). May repeat in 2 hours if needed rizatriptan 2021-11 Yes [id number] 5mg Take 1 [facility] 5 mg 0-25 9105 tablet by ity of disintegrat 00:00: mouth [place] tablet 00 needed for Med ical Migraine Branch (take 1 on onset of migraine and can repeat in 2 hrs). May repeat in 2 hours if needed rizatriptan 2021-11 Yes [id number] 5mg Take 1 [facility] 5 mg 0-25 9105 tablet by ity of disintegrat 00:00: mouth [place] tablet 00 needed for Med ical Migraine Branch (take 1 on onset of migraine and can repeat in 2 hrs). May repeat in 2 hours if needed rizatriptan 2021-11 Yes [id number] 5mg Take 1 [facility] 5 mg 0-25 9105 tablet by ity of disintegrat 00:00: mouth [place] tablet 00 needed for Med ical Migraine Branch (take 1 on onset of migraine and can repeat in 2 hrs). May repeat in 2 hours if needed rizatriptan 2021-11 Yes [id number] 5mg Take 1 [facility] 5 mg 0-25 9105 tablet by ity of disintegrat 00:00: mouth [place] tablet 00 needed for Med ical Migraine Branch (take 1 on onset of migraine and can repeat in 2 hrs). May repeat in 2 hours if needed rizatriptan 2021-11 Yes [id number] 5mg Take 1 [facility] 5 mg 0-25 9105 tablet by ity of disintegrat 00:00: mouth [place] tablet 00 needed for Med ical Migraine Branch (take 1 on onset of migraine and can repeat in 2 hrs). May repeat in 2 hours if needed rizatriptan 2021-11 Yes [id number] 5mg Take 1 [facility] 5 mg 0-25 9105 tablet by ity of disintegrat 00:00: mouth [place] tablet 00 needed for Med ical Migraine Branch (take 1 on onset of migraine and can repeat in 2 hrs). May repeat in 2 hours if needed rizatriptan 2021-11 Yes [id number] 5mg Take 1 [facility] 5 mg 0-25 9105 tablet by ity of disintegrat 00:00: mouth [place] tablet 00 needed for Med ical Migraine Branch (take 1 on onset of migraine and can repeat in 2 hrs). May repeat in 2 hours if needed rizatriptan 2021-11 Yes [id number] 5mg Take 1 [facility] 5 mg 0-25 9105 tablet by ity of disintegrat 00:00: mouth [place] tablet 00 needed for Med ical Migraine Branch (take 1 on onset of migraine and can repeat in 2 hrs). May repeat in 2 hours if needed rizatriptan 2021-11 Yes [id number] 5mg Take 1 [facility] 5 mg 0-25 9105 tablet by ity of disintegrat 00:00: mouth [place] tablet 00 needed for Med ical Migraine Branch (take 1 on onset of migraine and can repeat in 2 hrs). May repeat in 2 hours if needed rizatriptan 2021-11 Yes [id number] 5mg Take 1 [facility] 5 mg 0-25 9105 tablet by ity of disintegrat 00:00: mouth [place] tablet 00 needed for Med ical Migraine Branch (take 1 on onset of migraine and can repeat in 2 hrs). May repeat in 2 hours if needed rizatriptan 2021-11 Yes [id number] 5mg Take 1 [facility] 5 mg 0-25 9105 tablet by ity of disintegrat 00:00: mouth [place] tablet 00 needed for Med ical Migraine Branch (take 1 on onset of migraine and can repeat in 2 hrs). May repeat in 2 hours if needed rizatriptan 2021-11 Yes [id number] 5mg Take 1 [facility] 5 mg 0-25 9105 tablet by ity of disintegrat 00:00: mouth [place] tablet 00 needed for Med ical Migraine Branch (take 1 on onset of migraine and can repeat in 2 hrs). May repeat in 2 hours if needed rizatriptan 2021-11 Yes [id number] 5mg Take 1 [facility] 5 mg 0-25 9105 tablet by ity of disintegrat 00:00: mouth [place] tablet 00 needed for Med ical Migraine Branch (take 1 on onset of migraine and can repeat in 2 hrs). May repeat in 2 hours if needed rizatriptan 2021-11 Yes [id number] 5mg Take 1 [facility] 5 mg 0-25 9105 tablet by ity of disintegrat 00:00: mouth [place] tablet 00 needed for Med ical Migraine Branch (take 1 on onset of migraine and can repeat in 2 hrs). May repeat in 2 hours if needed rizatriptan 2021-11 Yes [id number] 5mg Take 1 [facility] 5 mg 0-25 9105 tablet by ity of disintegrat 00:00: [place] 00 needed for Med ical Migraine Branch (take 1 on onset of migraine and can repeat in 2 hrs). May repeat in 2 hours if needed rizatriptan 2021-11 Yes [id number] 5mg Take 1 [facility] 5 mg 0-25 9105 tablet by ity of disintegrat 00:00: [place] 00 needed for Med ical Migraine Branch (take 1 on onset of migraine and can repeat in 2 hrs). May repeat in 2 hours if needed rizatriptan 2021-11- No Unive rs ([facility] 0-25 03-14 ity of ) 5 mg 00:00: 00:00 [place] disintegrat 00 :00 [facility]ive [facility] ([facility] 0-25 03-14 ity of ) 5 mg 00:00: 00:00 [place] disintegrat 00 :[facility] ([facility] 0-25 03-14 ity of ) 5 mg 00:00: 00:00 [place] disintegrat 00 :[facility] Unive rs ([facility] 0-25 03-14 ity of ) 5 mg 00:00: 00:00 [place] disintegrat 00 :00 [facility] Unive rs ([facility] 0-25 03-14 ity of ) 5 mg 00:00: 00:00 [place] disintegrat 00 :00 MD ing tablet [facility] No Unive rs ([facility] 0-25 03-14 ity of ) 5 mg 00:00: 00:00 [place] disintegrat 00 :[facility] rizatriptan 2021-11- No Unive rs ([facility] SPECIALIST 0-25 03-14 ity of ) 5 mg 00:00: 00:00 [place] disintegrat 00 :00 MD ing tablet [facility]1 2023- No Unive rs ([facility] SPECIALIST 0-25 03-14 ity of ) 5 mg 00:00: 00:00 [place] disintegrat 00 :00 [facility]- No Unive rs ([facility] SPECIALIST 0-25 03-14 ity of ) 5 mg 00:00: 00:00 [place] disintegrat 00 :00 MD ing tablet [facility] 2021-11 Yes TAKE 4 Unive rs (APRISO) 0-24 CAPSULES ity of 0.375 gram 00:00: BY MOUTH [place] 24 hr 00 DAILY MD capsule [facility] 2021-11 Yes TAKE 4 Unive rs (APRISO) 0-24 CAPSULES ity of 0.375 gram 00:00: BY MOUTH [place] 24 hr 00 DAILY MD capsule [facility] 2021-11 Yes TAKE 4 Unive rs (APRISO) 0-24 CAPSULES ity of 0.375 gram 00:00: BY MOUTH [place] 24 hr 00 DAILY MD capsule [facility] 2021-11 Yes TAKE 4 Unive rs (APRISO) 0-24 CAPSULES ity of 0.375 gram 00:00: BY MOUTH [place] 24 hr 00 DAILY MD capsule [facility] 2021-11 Yes TAKE 4 Unive rs (APRISO) 0-24 CAPSULES ity of 0.375 gram 00:00: BY MOUTH [place] 24 hr 00 DAILY MD capsule [facility] 2021-11 Yes TAKE 4 Unive rs (APRISO) 0-24 CAPSULES ity of 0.375 gram 00:00: BY MOUTH [place] 24 hr 00 DAILY MD capsule [facility] 2021-11 Yes TAKE 4 Unive rs (APRISO) 0-24 CAPSULES ity of 0.375 gram 00:00: BY MOUTH [place] 24 hr 00 DAILY MD capsule [facility] 2021-11 Yes TAKE 4 Unive rs (APRISO) 0-24 CAPSULES ity of 0.375 gram 00:00: BY MOUTH [place] 24 hr 00 DAILY MD capsule [facility] 2022-1 Yes TAKE 4 Unive rs (APRISO) 0-24 CAPSULES ity of 0.375 gram 00:00: BY MOUTH [place] 24 hr 00 DAILY [id number] 1 Univers IN 0.4 mg 0-24 TABLET ity of sublingual 00:00: UNDER THE [place] tablet 00 TONGUE Medical EVERY 5 Branch MINUTES NEEDED FOR CHEST PAIN. NITROGLYCER 2021-[id number] 1 Univers IN 0.4 mg 0-24 TABLET ity of sublingual 00:00: UNDER THE [place] tablet 00 TONGUE Medical EVERY 5 Branch MINUTES NEEDED FOR CHEST PAIN. NITROGLYCER 2021-[id number] 1 Univers IN 0.4 mg 0-24 TABLET ity of sublingual 00:00: UNDER THE [place] tablet 00 TONGUE Medical EVERY 5 Branch MINUTES NEEDED FOR CHEST PAIN. NITROGLYCER 2021-[id number] 1 [facility] IN 0.4 mg 0-24 TABLET ity of sublingual 00:00: UNDER THE [place] tablet 00 TONGUE Medical EVERY 5 Branch MINUTES NEEDED FOR CHEST PAIN. NITROGLYCER 2021-[id number] 1 [facility] IN 0.4 mg 0-24 TABLET ity of sublingual 00:00: UNDER THE [place] tablet 00 TONGUE Medical EVERY 5 Branch MINUTES NEEDED FOR CHEST PAIN. NITROGLYCER 2021-[id number] 1 [facility] IN 0.4 mg 0-24 TABLET ity of sublingual 00:00: UNDER THE [place] tablet 00 TONGUE Medical EVERY 5 Branch MINUTES NEEDED FOR CHEST PAIN. NITROGLYCER 2021-[id number] 1 [facility] IN 0.4 mg 0-24 TABLET ity of sublingual 00:00: UNDER THE [place] tablet 00 TONGUE Medical EVERY 5 Branch MINUTES NEEDED FOR CHEST PAIN. NITROGLYCER 2021-[id number] 1 Univers IN 0.4 mg 0-24 TABLET ity of sublingual 00:00: UNDER THE [place] tablet 00 TONGUE Medical EVERY 5 Branch MINUTES NEEDED FOR CHEST PAIN. NITROGLYCER 2021-[id number] 1 Univers IN 0.4 mg 0-24 TABLET ity of sublingual 00:00: UNDER THE [place] tablet 00 TONGUE Medical EVERY 5 Branch MINUTES NEEDED FOR CHEST PAIN. NITROGLYCER 2021-[id number] 1 Univers IN 0.4 mg 0-24 TABLET ity of sublingual 00:00: UNDER THE [place] tablet 00 TONGUE Medical EVERY 5 Branch MINUTES NEEDED FOR CHEST PAIN. NITROGLYCER 2021-[id number] 1 Univers IN 0.4 mg 0-24 TABLET ity of sublingual 00:00: UNDER THE [place] tablet 00 TONGUE Medical EVERY 5 Branch MINUTES NEEDED FOR CHEST PAIN. NITROGLYCER 2021-[id number] 1 Univers IN 0.4 mg 0-24 TABLET ity of sublingual 00:00: UNDER THE [place] tablet 00 TONGUE Medical EVERY 5 Branch MINUTES NEEDED FOR CHEST PAIN. NITROGLYCER 2021-[id number] 1 Univers IN 0.4 mg 0-24 TABLET ity of sublingual 00:00: UNDER THE [place] tablet 00 TONGUE Medical EVERY 5 Branch MINUTES NEEDED FOR CHEST PAIN. NITROGLYCER 2021-[id number] 1 Univers IN 0.4 mg 0-24 TABLET ity of sublingual 00:00: UNDER THE [place] tablet 00 TONGUE Medical EVERY 5 Branch MINUTES NEEDED FOR CHEST PAIN. NITROGLYCER 2021-[id number] 1 Univers IN 0.4 mg 0-24 TABLET ity of sublingual 00:00: UNDER THE [place] tablet 00 TONGUE Medical EVERY 5 Branch MINUTES NEEDED FOR CHEST PAIN. NITROGLYCER 2021-[id number] 1 Univers IN 0.4 mg 0-24 TABLET ity of sublingual 00:00: UNDER THE [place] tablet 00 TONGUE Medical EVERY 5 Branch MINUTES NEEDED FOR CHEST PAIN. NITROGLYCER 2021-[id number] 1 Univers IN 0.4 mg 0-24 TABLET ity of sublingual 00:00: UNDER THE [place] tablet 00 TONGUE Medical EVERY 5 Branch MINUTES NEEDED FOR CHEST PAIN. NITROGLYCER 2021-[id number] 1 Univers IN 0.4 mg 0-24 TABLET ity of sublingual 00:00: UNDER THE [place] tablet 00 TONGUE Medical EVERY 5 Branch MINUTES NEEDED FOR CHEST PAIN. NITROGLYCER 2021-[id number] 1 Univers IN 0.4 mg 0-24 TABLET ity of sublingual 00:00: UNDER THE [place] tablet 00 TONGUE Medical EVERY 5 Branch MINUTES NEEDED FOR CHEST PAIN. NITROGLYCER 2021-[id number] 1 Univers IN 0.4 mg 0-24 TABLET ity of sublingual 00:00: UNDER THE [place] tablet 00 TONGUE Medical EVERY 5 Branch MINUTES NEEDED FOR CHEST PAIN. NITROGLYCER 2021-[id number] 1 Univers IN 0.4 mg 0-24 TABLET ity of sublingual 00:00: UNDER THE [place] tablet 00 TONGUE Medical EVERY 5 Branch MINUTES NEEDED FOR CHEST PAIN. NITROGLYCER 2021-[id number] 1 Univers IN 0.4 mg 0-24 TABLET ity of sublingual 00:00: UNDER THE [place] tablet 00 TONGUE Medical EVERY 5 Branch MINUTES NEEDED FOR CHEST PAIN. NITROGLYCER 2021-[id number] 1 Univers IN 0.4 mg 0-24 TABLET ity of sublingual 00:00: UNDER THE [place] tablet 00 TONGUE Medical EVERY 5 Branch MINUTES NEEDED FOR CHEST PAIN. NITROGLYCER 2021-[id number] 1 Univers IN 0.4 mg 0-24 TABLET ity of sublingual 00:00: UNDER THE [place] tablet 00 TONGUE Medical EVERY 5 Branch MINUTES NEEDED FOR CHEST PAIN. NITROGLYCER 2021-[id number] 1 Univers IN 0.4 mg 0-24 TABLET ity of sublingual 00:00: UNDER THE [place] tablet 00 TONGUE Medical EVERY 5 Branch MINUTES NEEDED FOR CHEST PAIN. NITROGLYCER 2021-[id number] 1 Univers IN 0.4 mg 0-24 TABLET ity of sublingual 00:00: UNDER THE [place] tablet 00 TONGUE Medical EVERY 5 Branch MINUTES NEEDED FOR CHEST PAIN. NITROGLYCER 2021-[id number] 1 Univers IN 0.4 mg 0-24 TABLET ity of sublingual 00:00: UNDER THE [place] tablet 00 TONGUE Medical EVERY 5 Branch MINUTES NEEDED FOR CHEST PAIN. NITROGLYCER 2021-[id number] 1 Univers IN 0.4 mg 0-24 TABLET ity of sublingual 00:00: UNDER THE [place] tablet 00 TONGUE Medical EVERY 5 Branch MINUTES NEEDED FOR CHEST PAIN. NITROGLYCER 2021-[id number] 1 Univers IN 0.4 mg 0-24 TABLET ity of sublingual 00:00: UNDER THE [place] tablet 00 TONGUE Medical EVERY 5 Branch MINUTES NEEDED FOR CHEST PAIN. NITROGLYCER 2021-[id number] 1 Univers IN 0.4 mg 0-24 TABLET ity of sublingual 00:00: UNDER THE [place] tablet 00 TONGUE Medical EVERY 5 Branch MINUTES NEEDED FOR CHEST PAIN. NITROGLYCER 2021-[id number] 1 Univers IN 0.4 mg 0-24 TABLET ity of sublingual 00:00: UNDER THE [place] tablet 00 TONGUE Medical EVERY 5 Branch MINUTES NEEDED FOR CHEST PAIN. NITROGLYCER 2021-[id number] 1 Univers IN 0.4 mg 0-24 TABLET ity of sublingual 00:00: UNDER THE [place] tablet 00 TONGUE Medical EVERY 5 Branch MINUTES NEEDED FOR CHEST PAIN. NITROGLYCER 2021-[id number] 1 Univers IN 0.4 mg 0-24 TABLET ity of sublingual 00:00: UNDER THE [place] tablet 00 TONGUE Medical EVERY 5 Branch MINUTES NEEDED FOR CHEST PAIN. NITROGLYCER 2021-[id number] 1 Univers IN 0.4 mg 0-24 TABLET ity of sublingual 00:00: UNDER THE [place] tablet 00 TONGUE Medical EVERY 5 Branch MINUTES NEEDED FOR CHEST PAIN. NITROGLYCER 2021-[id number] 1 Univers IN 0.4 mg 0-24 TABLET ity of sublingual 00:00: UNDER THE [place] tablet 00 TONGUE Medical EVERY 5 Branch MINUTES NEEDED FOR CHEST PAIN. NITROGLYCER 2021-[id number] 1 Univers IN 0.4 mg 0-24 TABLET ity of sublingual 00:00: UNDER THE [place] tablet 00 TONGUE Medical EVERY 5 Branch MINUTES NEEDED FOR CHEST PAIN. NITROGLYCER 2021-[id number] 1 Univers IN 0.4 mg 0-24 TABLET ity of sublingual 00:00: UNDER THE [place] tablet 00 TONGUE Medical EVERY 5 Branch MINUTES NEEDED FOR CHEST PAIN. NITROGLYCER 2021-[id number] 1 Univers IN 0.4 mg 0-24 TABLET ity of sublingual 00:00: UNDER THE [place] tablet 00 TONGUE Medical EVERY 5 Branch MINUTES NEEDED FOR CHEST PAIN. NITROGLYCER 2021-[id number] 1 Univers IN 0.4 mg 0-24 TABLET ity of sublingual 00:00: UNDER THE [place] tablet 00 TONGUE Medical EVERY 5 Branch MINUTES NEEDED FOR CHEST PAIN. NITROGLYCER 2021-[id number] 1 Univers IN 0.4 mg 0-24 TABLET ity of sublingual 00:00: UNDER THE [place] tablet 00 TONGUE Medical EVERY 5 Branch MINUTES NEEDED FOR CHEST PAIN. GABAPENTIN 2021- Yes [id number] TAKE 1 Univers 600 mg 0-21 TABLET BY ity of tablet 00:00: [facility] 00 THREE Medical TIMES Branch DAILY GABAPENTIN 2021- Yes [id number] TAKE 1 Univers 600 mg 0-21 TABLET BY ity of tablet 00:00: [facility] THREE Medical TIMES Branch DAILY GABAPENTIN 2021- Yes [id number] TAKE 1 Univers 600 mg 0-21 TABLET BY ity of tablet 00:00: [facility] THREE Medical TIMES Branch DAILY GABAPENTIN 2021- Yes [id number] TAKE 1 Univers 600 mg 0-21 TABLET BY ity of tablet 00:00: [facility] THREE Medical TIMES Branch DAILY GABAPENTIN 2021- Yes [id number] TAKE 1 Univers 600 mg 0-21 TABLET BY ity of tablet 00:00: [facility] THREE Medical TIMES Branch DAILY GABAPENTIN 2021-1 Yes [id number] TAKE 1 Univers 600 mg 0-21 TABLET BY ity of tablet 00:00: [facility] THREE Medical TIMES Branch DAILY GABAPENTIN 2021- Yes [id number] TAKE 1 Univers 600 mg 0-21 TABLET BY ity of tablet 00:00: [facility] THREE Medical TIMES Branch DAILY GABAPENTIN 2021-1 Yes [id number] TAKE 1 Univers 600 mg 0-21 TABLET BY ity of tablet 00:00: [facility] THREE Medical TIMES Branch DAILY GABAPENTIN 2021-1 Yes [id number] TAKE 1 [facility] 600 mg 0-21 TABLET BY ity of tablet 00:00: [facility] THREE Medical TIMES Branch DAILY GABAPENTIN 2021-1 Yes [id number] TAKE 1 [facility] 600 mg 0-21 TABLET BY ity of tablet 00:00: [facility] THREE Medical TIMES Branch DAILY GABAPENTIN 2021- Yes [id number] TAKE 1 Univers 600 mg 0-21 TABLET BY ity of tablet 00:00: [facility] 00 THREE Medical TIMES Branch DAILY GABAPENTIN 2021- 202- No [id number] TAKE 1 Univers 600 mg 0-21 11-17 TABLET BY ity of tablet 00:00: 00:00 [facility] 00 :00 THREE Medical TIMES Branch DAILY sucralfate 2021-2022- No TAKE 1 Univ ers (CARAFATE) 0-20 02-14 TABLET BY ity of 1 g tablet 00:00: 00:00 MOUTH [place] 00 :00 TWICE MD DAILY [facility] sucralfate 2021-11- No TAKE 1 Univ ers (CARAFATE) 0-20 02-14 TABLET BY ity of 1 g tablet 00:00: 00:00 MOUTH [place] 00 :00 TWICE MD DAILY [facility] sucralfate 2021-11- No TAKE 1 Univ ers (CARAFATE) 0-20 02-14 TABLET BY ity of 1 g tablet 00:00: 00:00 MOUTH [place] 00 :00 TWICE MD DAILY [facility] sucralfate 2021-11- No TAKE 1 Univ ers (CARAFATE) 0-20 02-14 TABLET BY ity of 1 g tablet 00:00: 00:00 MOUTH [place] 00 :00 TWICE MD DAILY [facility] sucralfate 2021-11- No TAKE 1 Univ ers (CARAFATE) 0-20 02-14 TABLET BY ity of 1 g tablet 00:00: 00:00 MOUTH [place] 00 :00 TWICE MD DAILY [facility] sucralfate 2021-11- No TAKE 1 Univ ers (CARAFATE) 0-20 02-14 TABLET BY ity of 1 g tablet 00:00: 00:00 MOUTH [place] 00 :00 TWICE MD DAILY [facility] sucralfate 2021-11- No TAKE 1 Univ ers (CARAFATE) 0-20 02-14 TABLET BY ity of 1 g tablet 00:00: 00:00 MOUTH [place] 00 :00 TWICE MD DAILY [facility] sucralfate 2021-11- No TAKE 1 Univ ers (CARAFATE) 0-20 02-14 TABLET BY ity of 1 g tablet 00:00: 00:00 MOUTH [place] 00 :00 TWICE MD DAILY [facility] sucralfate 2021-11- No TAKE 1 Univ ers (CARAFATE) 0-20 02-14 TABLET BY ity of 1 g tablet 00:00: 00:00 MOUTH [place] 00 :00 TWICE MD DAILY [facility] HYDROcodone 2021-11 Yes [id number] 1{tbl} Take [...] Indication s: chronic pain HYDRALAZINE 2021-11 Yes [id number] TAKE 1 Univers 100 mg 0-05 TABLET BY ity of tablet 00:00: THREE Medical TIMES Branch DAILY HYDRALAZINE 2021-11 Yes [id number] TAKE 1 [facility] 100 mg 0-05 TABLET BY ity of tablet 00:00: THREE Medical TIMES Branch DAILY HYDRALAZINE 2021-11 Yes [id number] TAKE 1 [facility] 100 mg 0-05 TABLET BY ity of tablet 00:00: THREE Medical TIMES Branch DAILY HYDRALAZINE 2021-11 Yes [id number] TAKE 1 [facility] 100 mg 0-05 TABLET BY ity of tablet 00:00: THREE Medical TIMES Branch DAILY HYDRALAZINE 2021-11 Yes [id number] TAKE 1 [facility] 100 mg 0-05 TABLET BY ity of tablet 00:00: THREE Medical TIMES Branch DAILY HYDRALAZINE 2021-11 Yes [id number] TAKE 1 [facility] 100 mg 0-05 TABLET BY ity of tablet 00:00: THREE Medical TIMES Branch DAILY HYDRALAZINE 2021-11 Yes [id number] TAKE 1 [facility] 100 mg 0-05 TABLET BY ity of tablet 00:00: THREE Medical TIMES Branch DAILY HYDRALAZINE 2021-11 Yes [id number] TAKE 1 [facility] 100 mg 0-05 TABLET BY ity of tablet 00:00: THREE Medical TIMES Branch DAILY HYDRALAZINE 2021-11 Yes [id number] TAKE 1 [facility] 100 mg 0-05 TABLET BY ity of tablet 00:00: THREE Medical TIMES Branch DAILY HYDRALAZINE 2021-11 Yes [id number] TAKE 1 [facility] 100 mg 0-05 TABLET BY ity of tablet 00:00: THREE Medical TIMES Branch DAILY HYDRALAZINE 2021-11 Yes [id number] TAKE 1 [facility] 100 mg 0-05 TABLET BY ity of tablet 00:00: MOUTH [place] 00 THREE Medical TIMES Branch DAILY HYDRALAZINE 2021-11- No [id number] TAKE 1 [facility] 100 mg 0-05 11-03 [...] Medical x 5/16 Syrg Branch GABAPENTIN Yes [id number] TAKE 1 [facility] 600 mg 9-26 TABLET BY ity of tablet 00:00: MOUTH [place] THREE Medical TIMES Branch DAILY NITROGLYCER Yes [...] Medical x 5/16 Syrg Branch GABAPENTIN Yes [id number] TAKE 1 [facility] 600 mg 9-26 TABLET [...] Medical x 5/16 Syrg Branch GABAPENTIN Yes [id number] TAKE 1 [facility] 600 mg 9-26 TABLET [...] x 5/16 Syrg Branch GABAPENTIN 2021-0 Yes [id number] TAKE 1 [facility] 600 mg 9-26 TABLET [...] by mouth ity of 00:00: in the [place] morning. Medical Branch INSULIN 2022-0 Yes USE TWICE Unive rs SYRINGE-NEE 9-26 DAILY WITH it y of DLE U-100 1 00:00: MEALS [place] mL 31 gauge 00 Medical x 5/16 Syrg Branch amLODIPine 2-0 Yes 5mg Take 5 mg Un ally 5 mg tablet 9-26 by mouth ity of 00:00: in the [place] morning. Medical Branch INSULIN 2-0 Yes USE TWICE Unive rs SYRINGE-NEE 9-26 DAILY WITH it y of DLE U-100 1 00:00: MEALS [place] mL 31 gauge 00 Medical x 5/16 Syrg Branch amLODIPine 2-0 Yes 5mg Take 5 mg Un ally 5 mg tablet 9-26 by mouth ity of 00:00: in the [place] morning. Medical Branch INSULIN 2-0 Yes USE TWICE Unive rs SYRINGE-NEE 9-26 DAILY WITH it y of DLE U-100 1 00:00: MEALS [facility] 31 gauge 00 Medical x 5/16 Syrg Branch amLODIPine 2-0 Yes 5mg Take 5 mg Un ally 5 mg tablet 9-26 by mouth ity of 00:00: in the [place] morning. Medical Branch INSULIN 2022-0 Yes USE TWICE Unive rs SYRINGE-NEE 9-26 DAILY WITH it y of DLE U-100 1 00:00: MEALS [facility] 31 gauge 00 Medical x 5/16 Syrg Branch amLODIPine 2022-0 Yes 5mg Take 5 mg Un ally 5 mg tablet 9-26 by mouth ity of 00:00: in the [place] morning. Medical Branch INSULIN 2022-0 Yes USE TWICE Unive rs SYRINGE-NEE 9-26 DAILY WITH it y of DLE U-100 1 00:00: MEALS [place] mL 31 gauge 00 Medical x 5/16 Syrg Branch amLODIPine 2022-0 Yes 5mg Take 5 mg Un ally 5 mg tablet 9-26 by mouth ity of 00:00: in the [place] morning. Medical Branch INSULIN 2022-0 Yes USE TWICE Unive rs SYRINGE-NEE 9-26 DAILY WITH it y of DLE U-100 1 00:00: MEALS [place] mL 31 gauge 00 Medical x 5/16 Syrg Branch amLODIPine 2022-0 Yes 5mg Take 5 mg Un ally 5 mg tablet 9-26 by mouth ity of 00:00: in the [place] morning. Medical Branch INSULIN 2022-0 Yes USE TWICE Unive rs SYRINGE-NEE 9-26 DAILY WITH it y of DLE U-100 1 00:00: MEALS [place] mL 31 gauge 00 Medical x 5/16 Syrg Branch amLODIPine 2-0 Yes 5mg Take 5 mg Un ally 5 mg tablet 9-26 by mouth ity of 00:00: in the [place] morning. Medical Branch INSULIN 2-0 Yes USE TWICE Unive rs SYRINGE-NEE 9-26 DAILY WITH it y of DLE U-100 1 00:00: MEALS [place] mL 31 gauge 00 Medical x 5/16 Syrg Branch amLODIPine 2-0 Yes 5mg Take 5 mg Un ally 5 mg tablet 9-26 by mouth ity of 00:00: in the [place] morning. Medical Branch INSULIN 2-0 Yes USE TWICE Unive rs SYRINGE-NEE 9-26 DAILY WITH it y of DLE U-100 1 00:00: MEALS [place] mL 31 gauge 00 Medical x 5/16 Syrg Branch amLODIPine 2-0 Yes 5mg Take 5 mg Un ally 5 mg tablet 9-26 by mouth ity of 00:00: in the [place] morning. Medical Branch INSULIN 2-0 Yes USE TWICE Unive rs SYRINGE-NEE 9-26 DAILY WITH it y of DLE U-100 1 00:00: MEALS [place] mL 31 gauge 00 Medical x 5/16 Syrg Branch amLODIPine 2022-0 Yes 5mg Take 5 mg Un ally 5 mg tablet 9-26 by mouth ity of 00:00: in the [place] morning. Medical Branch INSULIN 2022-0 Yes USE TWICE Unive rs SYRINGE-NEE 9-26 DAILY WITH it y of DLE U-100 1 00:00: MEALS [place] mL 31 gauge 00 Medical x 5/16 Syrg Branch amLODIPine 2022-0 Yes 5mg Take 5 mg Un ally 5 mg tablet 9-26 by mouth ity of 00:00: in the [place] morning. Medical Branch INSULIN 2022-0 Yes USE TWICE Unive rs SYRINGE-NEE 9-26 DAILY WITH it y of DLE U-100 1 00:00: MEALS [place] mL 31 gauge 00 Medical x 5/16 Syrg Branch amLODIPine 2-0 Yes 5mg Take 5 mg Un ally 5 mg tablet 9-26 by mouth ity of 00:00: in the [place] morning. Medical Branch INSULIN 2022-0 Yes USE TWICE Unive rs SYRINGE-NEE 9-26 DAILY WITH it y of DLE U-100 1 00:00: MEALS [place] mL 31 gauge 00 Medical x 5/16 Syrg Branch amLODIPine 2-0 Yes 5mg Take 5 mg Un ally 5 mg tablet 9-26 by mouth ity of 00:00: in the [place] morning. Medical Branch INSULIN 2022-0 Yes USE TWICE Unive rs SYRINGE-NEE 9-26 DAILY WITH it y of DLE U-100 1 00:00: MEALS [facility] 31 gauge 00 Medical x 5/16 Syrg Branch amLODIPine 2-0 Yes 5mg Take 5 mg Un ally 5 mg tablet 9-26 by mouth ity of 00:00: in the [place] morning. Medical Branch INSULIN 2-0 Yes USE TWICE Unive rs SYRINGE-NEE 9-26 DAILY WITH it y of DLE U-100 1 00:00: MEALS [place] mL 31 gauge 00 Medical x 5/16 Syrg Branch amLODIPine 2-0 Yes 5mg Take 1 Unive rs 5 mg tablet 9-26 tablet by ity of 00:00: mouth in [place] the morning. Branch INSULIN 2022-0 Yes USE TWICE Unive rs SYRINGE-NEE 9-26 DAILY WITH it y of DLE U-100 1 00:00: MEALS [place] mL 31 gauge 00 Medical x 5/16 Syrg Branch amLODIPine 2-0 Yes 5mg Take 1 Unive rs 5 mg tablet 9-26 tablet by ity of 00:00: mouth in [place] the Medical morning. Branch INSULIN 2022-0 Yes USE TWICE Unive rs SYRINGE-NEE 9-26 DAILY WITH it y of DLE U-100 1 00:00: MEALS [place] mL 31 gauge 00 Medical x 5/16 Syrg Branch amLODIPine 2022-0 Yes 5mg Take 1 Unive rs 5 mg tablet 9-26 tablet by ity of 00:00: mouth in [place] the Medical morning. Branch INSULIN 2022-0 Yes USE TWICE Unive rs SYRINGE-NEE 9-26 DAILY WITH it y of DLE U-100 1 00:00: MEALS [place] mL 31 gauge 00 Medical x 5/16 Syrg Branch amLODIPine 2022-0 Yes 5mg Take 1 Unive rs 5 mg tablet 9-26 tablet by ity of 00:00: mouth in [place] the Medical morning. Branch INSULIN 2022-0 Yes USE TWICE Unive rs SYRINGE-NEE 9-26 DAILY WITH it y of DLE U-100 1 00:00: MEALS [place] mL 31 gauge 00 Medical x 5/16 Syrg Branch amLODIPine 2-0 Yes 5mg Take 1 Unive rs 5 mg tablet 9-26 tablet by ity of 00:00: mouth in [place] the Medical morning. Branch INSULIN 2022-0 Yes USE TWICE Unive rs SYRINGE-NEE 9-26 DAILY WITH it y of DLE U-100 1 00:00: MEALS [place] mL 31 gauge 00 Medical x 5/16 Syrg Branch amLODIPine 2-0 Yes 5mg Take 1 Unive rs 5 mg tablet 9-26 tablet by ity of 00:00: mouth in [place] the Medical morning. Branch INSULIN 2022-0 Yes USE TWICE Unive rs SYRINGE-NEE 9-26 DAILY WITH it y of DLE U-100 1 00:00: MEALS [place] mL 31 gauge 00 Medical x 5/16 Syrg Branch amLODIPine 2022-0 Yes 5mg Take 1 Unive rs 5 mg tablet 9-26 tablet by ity of 00:00: mouth in [place] the Medical morning. Branch INSULIN 2022-0 Yes USE TWICE Unive rs SYRINGE-NEE 9-26 DAILY WITH it y of DLE U-100 1 00:00: MEALS [place] mL 31 gauge 00 Medical x 5/16 Syrg Branch amLODIPine 2022-0 Yes 5mg Take 1 Unive rs 5 mg tablet 9-26 tablet by ity of 00:00: mouth in [place] the Medical morning. Branch INSULIN 2022-0 Yes USE TWICE Unive rs SYRINGE-NEE 9-26 DAILY WITH it y of DLE U-100 1 00:00: MEALS [place] mL 31 gauge 00 Medical x 5/16 Syrg Branch amLODIPine 2022-0 Yes 5mg Take 1 Unive rs 5 mg tablet 9-26 tablet by ity of 00:00: mouth in [place] 00 the Medical morning. Branch INSULIN Yes USE TWICE Unive rs SYRINGE-NEE 9-26 DAILY WITH it y of DLE U-100 1 00:00: MEALS [place] mL 31 gauge 00 Medical x 03/16 Syrg Branch amLODIPine 0 Yes 5mg Take 1 Unive rs 5 mg tablet -26 tablet by ity of 00:00: mouth in [place] 00 the Medical morning. Branch NITROGLYCER 2021- No PLACE 1 Un ally IN 0.4 mg 9-26 10-24 TABLET ity of sublingual 00:00: 00:00 UNDER THE [place] tablet 00 :00 TONGUE Medical EVERY 5 Branch MINUTES NEEDED FOR CHEST PAIN. GABAPENTIN 2021- No [id number] TAKE 1 [facility] 600 mg 9-26 10-21 TABLET BY ity of tablet 00:00: 00:00 MOUTH [place] 00 :00 THREE Medical TIMES Branch DAILY Motegr[employer] 2 Yes TAKE 1 Univ ers mg tab 9-25 TABLET BY ity of 00:00: MOUTH [place] 00 DAILY MD [facility] Motegrity 2 Yes TAKE 1 Univ ers mg tab 9-25 TABLET BY ity of 00:00: MOUTH [place] 00 DAILY MD [facility] Motegr[facility] 2 Yes TAKE 1 Univ ers mg tab 9-25 TABLET BY ity of 00:00: MOUTH [place] 00 DAILY MD [facility] M[employer] 2 Yes TAKE 1 Univ ers mg tab 9-25 TABLET BY ity of 00:00: MOUTH [place] 00 DAILY MD [facility] M[facility] 2 Yes TAKE 1 Univ ers mg tab 9-25 TABLET BY ity of 00:00: MOUTH [place] 00 DAILY MD [facility] M[facility] 2 Yes TAKE 1 Univ ers mg tab 9-25 TABLET BY ity of 00:00: MOUTH [place] 00 DAILY MD [facility] 2 Yes TAKE 1 Univ ers mg tab 9-25 TABLET BY ity of 00:00: MOUTH [place] 00 DAILY MD [facility] M[employer]gr[facility] 2 2022-0 Yes TAKE 1 Univ ers mg tab 9-25 TABLET BY ity of 00:00: MOUTH DAILY MD [facility] [facility] 2021-0 Yes TAKE 1 [facility] ers mg tab 9-25 TABLET BY ity of 00:00: MOUTH DAILY MD Liane olivier [facility] COLCHICINE 2021-0 Yes [id number] .6mg TAKE 1 U nivers 0.6 mg 9-19 TABLET BY ity of tablet 00:00: MOUTH DAILY Medical Branch COLCHICINE 2021-0 Yes [id number] .6mg TAKE 1 U nivers 0.6 mg 9-19 TABLET BY ity of tablet 00:00: MOUTH DAILY Medical Branch COLCHICINE 2021-0 Yes [id number] .6mg TAKE 1 U nivers 0.6 mg 9-19 TABLET BY ity of tablet 00:00: MOUTH DAILY Medical Branch COLCHICINE 2021-0 Yes [id number] .6mg TAKE 1 U nivers 0.6 mg 9-19 TABLET BY ity of tablet 00:00: MOUTH DAILY Medical Branch COLCHICINE 2021-0 Yes [id number] .6mg TAKE 1 U nivers 0.6 mg 9-19 TABLET BY ity of tablet 00:00: MOUTH DAILY Medical Branch COLCHICINE 2021-0 Yes [id number] .6mg TAKE 1 U nivers 0.6 mg 9-19 TABLET BY ity of tablet 00:00: MOUTH DAILY Medical Branch COLCHICINE 2021-0 Yes [id number] .6mg TAKE 1 U nivers 0.6 mg 9-19 TABLET BY ity of tablet 00:00: [facility] DAILY Medical Branch COLCHICINE 2021-0 Yes [id number] .6mg TAKE 1 U nivers 0.6 mg 9-19 TABLET BY ity of tablet 00:00: MOUTH DAILY Medical Branch COLCHICINE 2-0 Yes [id number] .6mg TAKE 1 U nivers 0.6 mg 9-19 TABLET BY ity of tablet 00:00: MOUTH DAILY Medical Branch COLCHICINE 2021-0 Yes [id number] .6mg TAKE 1 U nivers 0.6 mg 9-19 TABLET BY ity of tablet 00:00: MOUTH DAILY Medical Branch COLCHICINE 2021-0 Yes [id number] .6mg TAKE 1 U nivers 0.6 mg 9-19 TABLET BY ity of tablet 00:00: MOUTH [place] DAILY Medical Branch COLCHICINE 2022-0 Yes [id number] .6mg TAKE 1 U nivers 0.6 mg 9-19 TABLET BY ity of tablet 00:00: MOUTH [place] DAILY Medical Branch COLCHICINE 2022-0 Yes [id number] .6mg TAKE 1 U nivers 0.6 mg 9-19 TABLET BY ity of tablet 00:00: MOUTH [place] DAILY Medical Branch COLCHICINE 2022-0 Yes [id number] .6mg TAKE 1 U nivers 0.6 mg 9-19 TABLET BY ity of tablet 00:00: MOUTH [place] DAILY Medical Branch COLCHICINE 2022-0 Yes [id number] .6mg TAKE 1 U nivers 0.6 mg 9-19 TABLET BY ity of tablet 00:00: [facility] DAILY Medical Branch COLCHICINE 2022-0 Yes [id number] .6mg TAKE 1 U nivers 0.6 mg 9-19 TABLET BY ity of tablet 00:00: [facility] DAILY Medical Branch COLCHICINE 2022-0 Yes [id number] .6mg TAKE 1 U nivers 0.6 mg 9-19 TABLET BY ity of tablet 00:00: MOUTH [place] DAILY Medical Branch COLCHICINE 2022-0 Yes [id number] .6mg TAKE 1 U nivers 0.6 mg 9-19 TABLET BY ity of tablet 00:00: [facility] DAILY Medical Branch COLCHICINE 2022-0 Yes [id number] .6mg TAKE 1 U nivers 0.6 mg 9-19 TABLET BY ity of tablet 00:00: [facility] DAILY Medical Branch COLCHICINE 2022-0 Yes [id number] .6mg TAKE 1 U nivers 0.6 mg 9-19 TABLET BY ity of tablet 00:00: MOUTH [place] DAILY Medical Branch COLCHICINE 2022-0 Yes [id number] .6mg TAKE 1 U nivers 0.6 mg 9-19 TABLET BY ity of tablet 00:00: [facility] DAILY Medical Branch COLCHICINE 2022-0 Yes [id number] .6mg TAKE 1 U nivers 0.6 mg 9-19 TABLET BY ity of tablet 00:00: MOUTH [place] DAILY Medical Branch COLCHICINE 2022-0 Yes [id number] .6mg TAKE 1 [facility] nivers 0.6 mg 9-19 TABLET BY ity of tablet 00:00: MOUTH [place] 00 DAILY Medical Branch COLCHICINE 2021-0 Yes [id number] .6mg TAKE 1 U nivers 0.6 mg 9-19 TABLET BY ity of tablet 00:00: MOUTH [place] 00 DAILY Medical Branch COLCHICINE 2021-0 Yes [id number] .6mg TAKE 1 [facility] nivers 0.6 mg 9-19 TABLET BY ity of tablet 00:00: MOUTH DAILY Medical Branch COLCHICINE 2021-0 Yes [id number] .6mg TAKE 1 [facility] nivers 0.6 mg 9-19 TABLET BY ity of tablet 00:00: MOUTH [place] 00 DAILY Medical Branch COLCHICINE 2021-0 Yes [id number] .6mg TAKE 1 U nivers 0.6 mg 9-19 TABLET BY ity of tablet 00:00: MOUTH DAILY Medical Branch COLCHICINE 2021-0 Yes [id number] .6mg TAKE 1 [facility] nivers 0.6 mg 9-19 TABLET BY ity of tablet 00:00: MOUTH DAILY Medical Branch COLCHICINE 2021-0 Yes [id number] .6mg TAKE 1 [facility] nivers 0.6 mg 9-19 TABLET BY ity of tablet 00:00: MOUTH 00 DAILY Medical Branch COLCHICINE 2021-0 Yes [id number] .6mg TAKE 1 [facility] nivers 0.6 mg 9-19 TABLET BY ity of tablet 00:00: MOUTH [place] 00 DAILY Medical Branch COLCHICINE 2021-0 Yes [id number] .6mg TAKE 1 [facility] nivers 0.6 mg 9-19 TABLET BY ity of tablet 00:00: MOUTH DAILY Medical Branch COLCHICINE 2022-0 2023- No [id number] .6mg TAKE 1 [facility] 0.6 mg 9-19 [...] Indication s: chronic pain HYDRALAZINE 2021-0 Yes [id number] TAKE 1 [facility] 100 mg 9-06 TABLET BY ity of tablet 00:00: MOUTH [place] 00 THREE Medical TIMES Branch DAILY HYDRALAZINE 2021-0 Yes [id number] TAKE 1 [facility] 100 mg 9-06 TABLET BY ity of tablet 00:00: MOUTH [place] 00 THREE Medical TIMES Branch DAILY HYDRALAZINE 2021-0 Yes [id number] TAKE 1 [facility] 100 mg 9-06 TABLET BY ity of tablet 00:00: MOUTH [place] 00 THREE Medical TIMES Branch DAILY HYDRALAZINE 2021-0 Yes [id number] TAKE 1 [facility] 100 mg 9-06 TABLET BY ity of tablet 00:00: MOUTH [place] 00 THREE Medical TIMES Branch DAILY HYDRALAZINE 2022-0 Yes [id number] TAKE 1 [facility] 100 mg 9-06 TABLET BY ity of tablet 00:00: MOUTH [place] 00 THREE Medical TIMES Branch DAILY HYDRALAZINE 2022-0 Yes [id number] TAKE 1 [facility] 100 mg 9-06 TABLET BY ity of tablet 00:00: MOUTH [place] 00 THREE Medical TIMES Branch DAILY HYDRALAZINE 2-0 2022- No [id number] TAKE 1 [facility] 100 mg 9-06 10-05 TABLET BY ity of tablet 00:00: 00:00 MOUTH [place] 00 :00 THREE Medical TIMES Branch DAILY GABAPENTIN 2022-0 Yes [id number] TAKE 1 [facility] 600 mg 8-31 TABLET BY ity of tablet 00:00: MOUTH [place] 00 THREE Medical TIMES Branch DAILY GABAPENTIN 2022-0 Yes [id number] TAKE 1 [facility] 600 mg 8-31 TABLET BY ity of tablet 00:00: MOUTH [place] 00 THREE Medical TIMES Branch DAILY GABAPENTIN 2022-0 Yes [id number] TAKE 1 [facility] 600 mg 8-31 TABLET BY ity of tablet 00:00: MOUTH [place] 00 THREE Medical TIMES Branch DAILY GABAPENTIN 2-0 Yes [id number] TAKE 1 [facility] 600 mg 8-31 TABLET BY ity of tablet 00:00: MOUTH [place] 00 THREE Medical TIMES Branch DAILY GABAPENTIN 2022-0 2022- No [id number] TAKE 1 [facility] 600 mg 8-31 09-26 [...] :00 TWICE Medical DAILY Branch LISINOPRIL 2021-0 Yes [id number] TAKE 1/2 [facility] 40 mg 8-08 TABLET [...] Indication s: chronic pain LISINOPRIL 2021-0 Yes [id number] TAKE 1/2 [facility] 40 mg 8-08 TABLET BY ity of tablet 00:00: MOUTH [place] 00 TWICE Medical DAILY Branch HYDROcodone 2021-0 Yes [id number] 1{tbl} Take 1 Un ally -acetaminop 8-08 tablet by ity of hen 7.5-325 00:00: mouth [place] mg per 00 every 6 Medical tablet (six) Branch hours as needed for Pain. Indication s: chronic pain LISINOPRIL 2021-0 Yes [id number] TAKE 1/2 [facility] 40 mg 8-08 TABLET BY ity of tablet 00:00: MOUTH [place] 00 TWICE Medical DAILY Branch HYDROcodone 2021-0 Yes [id number] 1{tbl} Take 1 Un ally -acetaminop 8-08 tablet by ity of hen 7.5-325 00:00: mouth [place] mg per 00 every 6 Medical tablet (six) Branch hours as needed for Pain. Indication s: chronic pain LISINOPRIL 2021-0 Yes [id number] TAKE 1/2 [facility] 40 mg 8-08 TABLET BY ity of tablet 00:00: MOUTH [place] 00 TWICE Medical DAILY Branch LISINOPRIL 2022-0 Yes [id number] TAKE 1/2 [facility] 40 mg 8-08 TABLET BY ity of tablet 00:00: MOUTH TWICE Medical DAILY Branch LISINOPRIL 2022-0 Yes [id number] TAKE 1/2 [facility] 40 mg 8-08 TABLET BY ity of tablet 00:00: MOUTH TWICE Medical DAILY Branch LISINOPRIL 2022-0 Yes [id number] TAKE 1/2 [facility] 40 mg 8-08 TABLET BY ity of tablet 00:00: MOUTH TWICE Medical DAILY Branch LISINOPRIL 2022-0 Yes [id number] TAKE 1/2 [facility] 40 mg 8-08 TABLET BY ity of tablet 00:00: MOUTH TWICE Medical DAILY Branch LISINOPRIL 2022-0 Yes [id number] TAKE 1/2 [facility] 40 mg 8-08 TABLET BY ity of tablet 00:00: MOUTH TWICE Medical DAILY Branch LISINOPRIL 2022-0 Yes [id number] TAKE 1/2 [facility] 40 mg 8-08 TABLET BY ity of tablet 00:00: TWICE Medical DAILY Branch LISINOPRIL 2022-0 Yes [id number] TAKE 1/2 [facility] 40 mg 8-08 TABLET BY ity of tablet 00:00: MOUTH TWICE Medical DAILY Branch LISINOPRIL 2022-0 Yes [id number] TAKE 1/2 [facility] 40 mg 8-08 TABLET BY ity of tablet 00:00: MOUTH TWICE Medical DAILY Branch LISINOPRIL 2022-0 Yes [id number] TAKE 1/2 [facility] 40 mg 8-08 TABLET BY ity of tablet 00:00: MOUTH TWICE Medical DAILY Branch LISINOPRIL 2022-0 Yes [id number] TAKE 1/2 [facility] 40 mg 8-08 TABLET BY ity of tablet 00:00: MOUTH TWICE Medical DAILY Branch LISINOPRIL 2022-0 Yes [id number] TAKE 1/2 [facility] 40 mg 8-08 TABLET BY ity of tablet 00:00: MOUTH TWICE Medical DAILY Branch LISINOPRIL 2022-0 Yes [id number] TAKE 1/2 [facility] 40 mg 8-08 TABLET BY ity of tablet 00:00: MOUTH TWICE Medical DAILY Branch LISINOPRIL 2022-0 Yes [id number] TAKE 1/2 [facility] 40 mg 8-08 TABLET BY ity of tablet 00:00: MOUTH TWICE Medical DAILY Branch LISINOPRIL 2022-0 Yes [id number] TAKE 1/2 [facility] 40 mg 8-08 TABLET BY ity of tablet 00:00: MOUTH [place] 00 TWICE Medical DAILY Branch LISINOPRIL 0 Yes [id number] TAKE 1/2 [facility] 40 mg 8-08 TABLET BY ity of tablet 00:00: MOUTH [place] 00 TWICE Medical DAILY Branch LISINOPRIL 2021-0 Yes [id number] TAKE 1/2 [facility] 40 mg 8-08 TABLET BY ity of tablet 00:00: MOUTH [place] 00 TWICE Medical DAILY Branch LISINOPRIL 0 202- No [id number] TAKE 1/2 [facility] 40 mg 8-08 11- TABLET BY ity of tablet 00:00: 00:00 MOUTH [place] 00 :00 TWICE Medical DAILY Branch HYDROcodone 2021- No [id number] 1{tbl} Take 1 U nivers -acetaminop 8-06 09-08 tablet by it y of hen 7.5-325 00:00: 00:00 mouth [place] mg per 00 :00 every 6 Medical tablet (six) Branch hours as needed for Pain. Indication s: chronic pain HUMULIN Yes [id number] ADMINISTER Univers 70/30 U-100 8-03 70 UNITS ity of INSULIN 100 00:00: UNDER THE [place] unit/mL 00 SKIN EVERY Medica l (70-30) MORNING Branch suspension THEN ADMINISTER 60 UNITS UNDER THE SKIN EVERY EVENING HUMULIN Yes [id number] ADMINISTER Univers 70/30 U-100 8-03 70 UNITS ity of INSULIN 100 00:00: UNDER THE [place] unit/mL 00 SKIN EVERY Medica l (70-30) MORNING Branch suspension THEN ADMINISTER 60 UNITS UNDER THE SKIN EVERY EVENING GABAPENTIN Yes [id number] TAKE 1 [facility] 600 mg 8-03 TABLET BY ity of tablet 00:00: MOUTH [place] 00 THREE Medical TIMES Branch DAILY HUMULIN Yes [id number] ADMINISTER Univers 70/30 U-100 8-03 70 UNITS ity of INSULIN 100 00:00: UNDER THE [place] unit/mL 00 SKIN EVERY Medica l (70-30) MORNING Branch suspension THEN ADMINISTER 60 UNITS UNDER THE SKIN EVERY EVENING GABAPENTIN 0 Yes [id number] TAKE 1 [facility] 600 mg 8-03 TABLET BY ity of tablet 00:00: MOUTH [place] 00 THREE Medical TIMES Branch DAILY HUMULIN Yes [id number] ADMINISTER Univers 70/30 U-100 8-03 70 UNITS ity of INSULIN 100 00:00: UNDER THE [place] unit/mL 00 SKIN EVERY Medica l (70-30) MORNING Branch suspension THEN ADMINISTER 60 UNITS UNDER THE SKIN EVERY EVENING GABAPENTIN Yes [id number] TAKE 1 [facility] 600 mg 8-03 TABLET BY ity of tablet 00:00: MOUTH Medical TIMES Branch DAILY HUMULIN Yes [id number] ADMINISTER [facility] 70/30 U-100 8-03 70 UNITS ity of INSULIN 100 00:00: UNDER THE [place] unit/mL 00 SKIN EVERY Medica l (70-30) MORNING Branch suspension THEN ADMINISTER 60 UNITS UNDER THE SKIN EVERY EVENING GABAPENTIN Yes [id number] TAKE 1 [facility] 600 mg 8-03 TABLET BY ity of tablet 00:00: Medical TIMES Branch DAILY HUMULIN Yes [id number] ADMINISTER [facility] 70/30 U-100 8-03 70 UNITS ity of INSULIN 100 00:00: UNDER THE [place] unit/mL 00 SKIN EVERY Medica l (70-30) MORNING Branch suspension THEN ADMINISTER 60 UNITS UNDER THE SKIN EVERY EVENING HUMULIN Yes [id number] ADMINISTER Univers 70/30 U-100 8-03 70 UNITS ity of INSULIN 100 00:00: UNDER THE [place] unit/mL 00 SKIN EVERY Medica l (70-30) MORNING Branch suspension THEN ADMINISTER 60 UNITS UNDER THE SKIN EVERY EVENING HUMULIN Yes [id number] ADMINISTER Univers 70/30 U-100 8-03 70 UNITS ity of INSULIN 100 00:00: UNDER THE [place] unit/mL 00 SKIN EVERY Medica l (70-30) MORNING Branch suspension THEN ADMINISTER 60 UNITS UNDER THE SKIN EVERY EVENING HUMULIN Yes [id number] ADMINISTER [facility] 70/30 U-100 8-03 70 UNITS ity of INSULIN 100 00:00: UNDER THE [place] unit/mL 00 SKIN EVERY Medica l (70-30) MORNING Branch suspension THEN ADMINISTER 60 UNITS UNDER THE SKIN EVERY EVENING HUMULIN Yes [id number] ADMINISTER Univers 70/30 U-100 8-03 70 UNITS ity of INSULIN 100 00:00: UNDER THE [place] unit/mL 00 SKIN EVERY Medica l (70-30) MORNING Branch suspension THEN ADMINISTER 60 UNITS UNDER THE SKIN EVERY EVENING HUMULIN Yes [id number] ADMINISTER Univers 70/30 U-100 8-03 70 UNITS ity of INSULIN 100 00:00: UNDER THE [place] unit/mL 00 SKIN EVERY Medica l (70-30) MORNING Branch suspension THEN ADMINISTER 60 UNITS UNDER THE SKIN EVERY EVENING HUMULIN Yes [id number] ADMINISTER Univers 70/30 U-100 8-03 70 UNITS ity of INSULIN 100 00:00: UNDER THE [place] unit/mL 00 SKIN EVERY Medica l (70-30) MORNING Branch suspension THEN ADMINISTER 60 UNITS UNDER THE SKIN EVERY EVENING HUMULIN Yes [id number] ADMINISTER Univers 70/30 U-100 8-03 70 UNITS ity of INSULIN 100 00:00: UNDER THE [place] unit/mL 00 SKIN EVERY Medica l (70-30) MORNING Branch suspension THEN ADMINISTER 60 UNITS UNDER THE SKIN EVERY EVENING HUMULIN Yes [id number] ADMINISTER Univers 70/30 U-100 8-03 70 UNITS ity of INSULIN 100 00:00: UNDER THE [place] unit/mL 00 SKIN EVERY Medica l (70-30) MORNING Branch suspension THEN ADMINISTER 60 UNITS UNDER THE SKIN EVERY EVENING HUMULIN Yes [id number] ADMINISTER [facility] 70/30 U-100 8-03 70 UNITS ity of INSULIN 100 00:00: UNDER THE [place] unit/mL 00 SKIN EVERY Medica l (70-30) MORNING Branch suspension THEN ADMINISTER 60 UNITS UNDER THE SKIN EVERY EVENING HUMULIN Yes [id number] ADMINISTER [facility] 70/30 U-100 8-03 70 UNITS ity of INSULIN 100 00:00: UNDER THE [place] unit/mL 00 SKIN EVERY Medica l (70-30) MORNING Branch suspension THEN ADMINISTER 60 UNITS UNDER THE SKIN EVERY EVENING HUMULIN Yes [id number] ADMINISTER Univers 70/30 U-100 8-03 70 UNITS ity of INSULIN 100 00:00: UNDER THE [place] unit/mL 00 SKIN EVERY Medica l (70-30) MORNING Branch suspension THEN ADMINISTER 60 UNITS UNDER THE SKIN EVERY EVENING HUMULIN Yes [id number] ADMINISTER [facility] 70/30 U-100 8-03 70 UNITS ity of INSULIN 100 00:00: UNDER THE [place] unit/mL 00 SKIN EVERY Medica l (70-30) MORNING Branch suspension THEN ADMINISTER 60 UNITS UNDER THE SKIN EVERY EVENING HUMULIN Yes [id number] ADMINISTER [facility] 70/30 U-100 8-03 70 UNITS ity of INSULIN 100 00:00: UNDER THE [place] unit/mL 00 SKIN EVERY Medica l (70-30) MORNING Branch suspension THEN ADMINISTER 60 UNITS UNDER THE SKIN EVERY EVENING HUMULIN Yes [id number] ADMINISTER [facility] 70/30 U-100 8-03 70 UNITS ity of INSULIN 100 00:00: UNDER THE [place] unit/mL 00 SKIN EVERY Medica l (70-30) MORNING Branch suspension THEN ADMINISTER 60 UNITS UNDER THE SKIN EVERY EVENING HUMULIN Yes [id number] ADMINISTER [facility] 70/30 U-100 8-03 70 UNITS ity of INSULIN 100 00:00: UNDER THE [place] unit/mL 00 SKIN EVERY Medica l (70-30) MORNING Branch suspension THEN ADMINISTER 60 UNITS UNDER THE SKIN EVERY EVENING HUMULIN Yes [id number] ADMINISTER [facility] 70/30 U-100 8-03 70 UNITS ity of INSULIN 100 00:00: UNDER THE [place] unit/mL 00 SKIN EVERY Medica l (70-30) MORNING Branch suspension THEN ADMINISTER 60 UNITS UNDER THE SKIN EVERY EVENING HUMULIN Yes [id number] ADMINISTER [facility] 70/30 U-100 8-03 70 UNITS ity of INSULIN 100 00:00: UNDER THE [place] unit/mL 00 SKIN EVERY Medica l (70-30) MORNING Branch suspension THEN ADMINISTER 60 UNITS UNDER THE SKIN EVERY EVENING HUMULIN Yes [id number] ADMINISTER [facility] 70/30 U-100 8-03 70 UNITS ity of INSULIN 100 00:00: UNDER THE [place] unit/mL 00 SKIN EVERY Medica l (70-30) MORNING Branch suspension THEN ADMINISTER 60 UNITS UNDER THE SKIN EVERY EVENING HUMULIN Yes [id number] ADMINISTER [facility] 70/30 U-100 8-03 70 UNITS ity of INSULIN 100 00:00: UNDER THE [place] unit/mL 00 SKIN EVERY Medica l (70-30) MORNING Branch suspension THEN ADMINISTER 60 UNITS UNDER THE SKIN EVERY EVENING HUMULIN Yes [id number] ADMINISTER [facility] 70/30 U-100 8-03 70 UNITS ity of INSULIN 100 00:00: UNDER THE [place] unit/mL 00 SKIN EVERY Medica l (70-30) MORNING Branch suspension THEN ADMINISTER 60 UNITS UNDER THE SKIN EVERY EVENING HUMULIN Yes [id number] ADMINISTER [facility] 70/30 U-100 8-03 70 UNITS ity of INSULIN 100 00:00: UNDER THE [place] unit/mL 00 SKIN EVERY Medica l (70-30) MORNING Branch suspension THEN ADMINISTER 60 UNITS UNDER THE SKIN EVERY EVENING HUMULIN Yes [id number] ADMINISTER [facility] 70/30 U-100 8-03 70 UNITS ity of INSULIN 100 00:00: UNDER THE [place] unit/mL 00 SKIN EVERY Medica l (70-30) MORNING Branch suspension THEN ADMINISTER 60 UNITS UNDER THE SKIN EVERY EVENING HUMULIN Yes [id number] ADMINISTER [facility] 70/30 U-100 8-03 70 UNITS ity of INSULIN 100 00:00: UNDER THE [place] unit/mL 00 SKIN EVERY Medica l (70-30) MORNING Branch suspension THEN ADMINISTER 60 UNITS UNDER THE SKIN EVERY EVENING HUMULIN Yes [id number] ADMINISTER [facility] 70/30 U-100 8-03 70 UNITS ity of INSULIN 100 00:00: UNDER THE [place] unit/mL 00 SKIN EVERY Medica l (70-30) MORNING Branch suspension THEN ADMINISTER 60 UNITS UNDER THE SKIN EVERY EVENING HUMULIN Yes [id number] ADMINISTER [facility] 70/30 U-100 8-03 70 UNITS ity of INSULIN 100 00:00: UNDER THE [place] unit/mL 00 SKIN EVERY Medica l (70-30) MORNING Branch suspension THEN ADMINISTER 60 UNITS UNDER THE SKIN EVERY EVENING HUMULIN Yes [id number] ADMINISTER [facility] 70/30 U-100 8-03 70 UNITS ity of INSULIN 100 00:00: UNDER THE [place] unit/mL 00 SKIN EVERY Medica l (70-30) MORNING Branch suspension THEN ADMINISTER 60 UNITS UNDER THE SKIN EVERY EVENING HUMULIN Yes [id number] ADMINISTER [facility] 70/30 U-100 8-03 70 UNITS ity of INSULIN 100 00:00: UNDER THE [place] unit/mL 00 SKIN EVERY Medica l (70-30) MORNING Branch suspension THEN ADMINISTER 60 UNITS UNDER THE SKIN EVERY EVENING HUMULIN Yes [id number] ADMINISTER [facility] 70/30 U-100 8-03 70 UNITS ity of INSULIN 100 00:00: UNDER THE [place] unit/mL 00 SKIN EVERY Medica l (70-30) MORNING Branch suspension THEN ADMINISTER 60 UNITS UNDER THE SKIN EVERY EVENING HUMULIN Yes [id number] ADMINISTER [facility] 70/30 U-100 8-03 70 UNITS ity of INSULIN 100 00:00: UNDER THE [place] unit/mL 00 SKIN EVERY Medica l (70-30) MORNING Branch suspension THEN ADMINISTER 60 UNITS UNDER THE SKIN EVERY EVENING HUMULIN Yes [id number] ADMINISTER [facility] 70/30 U-100 8-03 70 UNITS ity of INSULIN 100 00:00: UNDER THE [place] unit/mL 00 SKIN EVERY Medica l (70-30) MORNING Branch suspension THEN ADMINISTER 60 UNITS UNDER THE SKIN EVERY EVENING HUMULIN Yes [id number] ADMINISTER [facility] 70/30 U-100 8-03 70 UNITS ity of INSULIN 100 00:00: UNDER THE [place] unit/mL 00 SKIN EVERY Medica l (70-30) MORNING Branch suspension THEN ADMINISTER 60 UNITS UNDER THE SKIN EVERY EVENING HUMULIN Yes [id number] ADMINISTER [facility] 70/30 U-100 8-03 70 UNITS ity of INSULIN 100 00:00: UNDER THE [place] unit/mL 00 SKIN EVERY Medica l (70-30) MORNING Branch suspension THEN ADMINISTER 60 UNITS UNDER THE SKIN EVERY EVENING HUMULIN Yes [id number] ADMINISTER [facility] 70/30 U-100 8-03 70 UNITS ity of INSULIN 100 00:00: UNDER THE [place] unit/mL 00 SKIN EVERY Medica l (70-30) MORNING Branch suspension THEN ADMINISTER 60 UNITS UNDER THE SKIN EVERY EVENING HUMULIN Yes [id number] ADMINISTER [facility] 70/30 U-100 8-03 70 UNITS ity of INSULIN 100 00:00: UNDER THE [place] unit/mL 00 SKIN EVERY Medica l (70-30) MORNING Branch suspension THEN ADMINISTER 60 UNITS UNDER THE SKIN EVERY EVENING HUMULIN Yes [id number] ADMINISTER [facility] 70/30 U-100 8-03 70 UNITS ity of INSULIN 100 00:00: UNDER THE [place] unit/mL 00 SKIN EVERY Medica l (70-30) MORNING Branch suspension THEN ADMINISTER 60 UNITS UNDER THE SKIN EVERY EVENING HUMULIN Yes [id number] ADMINISTER [facility] 70/30 U-100 8-03 70 UNITS ity of INSULIN 100 00:00: UNDER THE [place] unit/mL 00 SKIN EVERY Medica l (70-30) MORNING Branch suspension THEN ADMINISTER 60 UNITS UNDER THE SKIN EVERY EVENING HUMULIN Yes [id number] ADMINISTER [facility] 70/30 U-100 8-03 70 UNITS ity of INSULIN 100 00:00: UNDER THE [place] unit/mL 00 SKIN EVERY Medica l (70-30) MORNING Branch suspension THEN ADMINISTER 60 UNITS UNDER THE SKIN EVERY EVENING HUMULIN Yes [id number] ADMINISTER [facility] 70/30 U-100 8-03 70 UNITS ity of INSULIN 100 00:00: UNDER THE [place] unit/mL 00 SKIN EVERY Medica l (70-30) MORNING Branch suspension THEN ADMINISTER 60 UNITS UNDER THE SKIN EVERY EVENING HUMULIN Yes [id number] ADMINISTER [facility] 70/30 U-100 8-03 70 UNITS ity of INSULIN 100 00:00: UNDER THE [place] unit/mL 00 SKIN EVERY Medica l (70-30) MORNING Branch suspension THEN ADMINISTER 60 UNITS UNDER THE SKIN EVERY EVENING HUMULIN Yes [id number] ADMINISTER [facility] 70/30 U-100 8-03 70 UNITS ity of INSULIN 100 00:00: UNDER THE [place] unit/mL 00 SKIN EVERY Medica l (70-30) MORNING Branch suspension THEN ADMINISTER 60 UNITS UNDER THE SKIN EVERY EVENING HUMULIN Yes [id number] ADMINISTER [facility] 70/30 U-100 8-03 70 UNITS ity of INSULIN 100 00:00: UNDER THE [place] unit/mL 00 SKIN EVERY Medica l (70-30) MORNING Branch suspension THEN ADMINISTER 60 UNITS UNDER THE SKIN EVERY EVENING HUMULIN Yes [id number] ADMINISTER [facility] 70/30 U-100 8-03 70 UNITS ity of INSULIN 100 00:00: UNDER THE [place] unit/mL 00 SKIN EVERY Medica l (70-30) MORNING Branch suspension THEN ADMINISTER 60 UNITS UNDER THE SKIN EVERY EVENING HUMULIN Yes [id number] ADMINISTER [facility] 70/30 U-100 8-03 70 UNITS ity of INSULIN 100 00:00: UNDER THE [place] unit/mL 00 SKIN EVERY Medica l (70-30) MORNING Branch suspension THEN ADMINISTER 60 UNITS UNDER THE SKIN EVERY EVENING HUMULIN Yes [id number] ADMINISTER [facility] 70/30 U-100 8-03 70 UNITS ity of INSULIN 100 00:00: UNDER THE [place] unit/mL 00 SKIN EVERY Medica l (70-30) MORNING Branch suspension THEN ADMINISTER 60 UNITS UNDER THE SKIN EVERY EVENING HUMULIN Yes [id number] ADMINISTER [facility] 70/30 U-100 8 70 UNITS ity of INSULIN 100 00:00: UNDER THE [place] unit/mL 00 SKIN EVERY Medica l (70-30) MORNING Branch suspension THEN ADMINISTER 60 UNITS UNDER THE SKIN EVERY EVENING HUMULIN Yes [id number] ADMINISTER [facility] 70/30 U-100 06-03 70 UNITS ity of INSULIN 100 00:00: UNDER THE [place] unit/mL 00 SKIN EVERY Medica l (70-30) MORNING Branch suspension THEN ADMINISTER 60 UNITS UNDER THE SKIN EVERY EVENING HUMULIN Yes [id number] ADMINISTER [facility] 70/30 U-100 06-03 70 UNITS ity of INSULIN 100 00:00: UNDER THE [place] unit/mL 00 SKIN EVERY Medica l (70-30) MORNING Branch suspension THEN ADMINISTER 60 UNITS UNDER THE SKIN EVERY EVENING HUMULIN 2022- No [id number] ADMINISTER [facility] 70/30 U-100 06-03 70 UNITS ity of INSULIN 100 00:00: 00:00 UNDER THE [place] unit/mL 00 :00 SKIN EVERY Medica l (70-30) MORNING Branch suspension THEN ADMINISTER 60 UNITS UNDER THE SKIN EVERY EVENING GABAPENTIN 2021- No [id number] TAKE 1 [facility] 600 mg 06-03 TABLET BY ity of tablet 00:00: 00:00 MOUTH [place] 00 :00 THREE Medical TIMES Branch DAILY HYDROCHLORO Yes [id number] 12.5mg TAKE 1 [facility] THIAZIDE 7-18 CAPSULE BY ity o f 12.5 mg 00:00: MOUTH [place] capsule 00 DAILY Medical Branch HYDROCHLORO 2021-0 Yes [id number] 12.5mg TAKE 1 [facility] THIAZIDE 7-18 CAPSULE BY ity o f 12.5 mg 00:00: MOUTH [place] capsule 00 DAILY Medical Branch HYDROCHLORO 0 Yes [id number] 12.5mg TAKE 1 [facility] THIAZIDE 7-18 CAPSULE BY ity o f 12.5 mg 00:00: MOUTH [place] capsule 00 DAILY Medical Branch HYDROCHLORO 0 Yes [id number] 12.5mg TAKE 1 [facility] THIAZIDE 7-18 CAPSULE BY ity o f 12.5 mg 00:00: MOUTH [place] capsule 00 DAILY Medical Branch HYDROCHLORO 2022-0 Yes [id number] 12.5mg TAKE 1 [facility] THIAZIDE 7-18 CAPSULE BY ity o f 12.5 mg 00:00: MOUTH [place] capsule 00 DAILY Medical Branch HYDROCHLORO 2022-0 Yes [id number] 12.5mg TAKE 1 [facility] THIAZIDE 7-18 CAPSULE BY ity o f 12.5 mg 00:00: MOUTH [place] capsule 00 DAILY Medical Branch HYDROCHLORO 2022-0 Yes [id number] 12.5mg TAKE 1 [facility] THIAZIDE 7-18 CAPSULE BY ity o f 12.5 mg 00:00: MOUTH [place] capsule 00 DAILY Medical Branch HYDROCHLORO 2022-0 Yes [id number] 12.5mg TAKE 1 [facility] THIAZIDE 7-18 CAPSULE BY ity o f 12.5 mg 00:00: MOUTH [place] capsule 00 DAILY Medical Branch HYDROCHLORO 2022-0 Yes [id number] 12.5mg TAKE 1 [facility] THIAZIDE 7-18 CAPSULE BY it[facility] o f 12.5 mg 00:00: MOUTH [place] capsule 00 DAILY [facility] HYDROCHLORO 2022-0 Yes [id number] 12.5mg TAKE 1 [facility] THIAZIDE 7-18 CAPSULE BY it[facility] o f 12.5 mg 00:00: MOUTH [place] capsule 00 DAILY [facility] HYDROCHLORO 2022-0 Yes [id number] 12.5mg TAKE 1 [facility] THIAZIDE 7-18 CAPSULE BY it[facility] o f 12.5 mg 00:00: MOUTH [place] capsule 00 DAILY [facility] HYDROCHLORO 2022-0 Yes [id number] 12.5mg TAKE 1 [facility] THIAZIDE 7-18 CAPSULE BY ity o f 12.5 mg 00:00: MOUTH [place] capsule 00 DAILY [facility] HYDROCHLORO 2022-0 Yes [id number] 12.5mg TAKE 1 [facility] THIAZIDE 7-18 CAPSULE BY ity o f 12.5 mg 00:00: MOUTH [place] capsule 00 DAILY [facility] HYDROCHLORO 2022-0 Yes [id number] 12.5mg TAKE 1 [facility] THIAZIDE 7-18 CAPSULE BY ity o f 12.5 mg 00:00: MOUTH [place] capsule 00 DAILY [facility] HYDROCHLORO 2022-0 Yes [id number] 12.5mg TAKE 1 [facility] THIAZIDE 7-18 CAPSULE BY ity o f 12.5 mg 00:00: MOUTH [place] capsule 00 DAILY [facility] HYDROCHLORO 2022-0 Yes [id number] 12.5mg TAKE 1 [facility] THIAZIDE 7-18 CAPSULE BY ity o f 12.5 mg 00:00: MOUTH [place] capsule 00 DAILY [facility] HYDROCHLORO 2022-0 Yes [id number] 12.5mg TAKE 1 [facility] THIAZIDE 7-18 CAPSULE BY ity o f 12.5 mg 00:00: MOUTH [place] capsule 00 DAILY [facility] HYDROCHLORO 2022-0 Yes [id number] 12.5mg TAKE 1 [facility] THIAZIDE 7-18 CAPSULE BY ity o f 12.5 mg 00:00: MOUTH [place] capsule 00 DAILY [facility] HYDROCHLORO 2022-0 Yes [id number] 12.5mg TAKE 1 [facility] THIAZIDE 7-18 CAPSULE BY ity o f 12.5 mg 00:00: MOUTH [place] capsule 00 DAILY [facility] HYDROCHLORO 2022-0 Yes [id number] 12.5mg TAKE 1 [facility] THIAZIDE 7-18 CAPSULE BY ity o f 12.5 mg 00:00: MOUTH [place] capsule 00 DAILY [facility] HYDROCHLORO 2022-0 Yes [id number] 12.5mg TAKE 1 [facility] THIAZIDE 7-18 CAPSULE BY ity o f 12.5 mg 00:00: MOUTH [place] capsule 00 DAILY [facility] HYDROCHLORO 2022-0 Yes [id number] 12.5mg TAKE 1 [facility] THIAZIDE 7-18 CAPSULE BY ity o f 12.5 mg 00:00: MOUTH [place] capsule 00 DAILY [facility] HYDROCHLORO 2022-0 Yes [id number] 12.5mg TAKE 1 [facility] THIAZIDE 7-18 CAPSULE BY ity o f 12.5 mg 00:00: MOUTH [place] capsule 00 DAILY [facility] HYDROCHLORO 2022-0 Yes [id number] 12.5mg TAKE 1 [facility] THIAZIDE 7-18 CAPSULE BY ity o f 12.5 mg 00:00: MOUTH [place] capsule 00 DAILY [facility] HYDROCHLORO 2022-0 Yes [id number] 12.5mg TAKE 1 [facility] THIAZIDE 7-18 CAPSULE BY ity o f 12.5 mg 00:00: MOUTH [place] capsule 00 DAILY [facility] HYDROCHLORO 2022-0 Yes [id number] 12.5mg TAKE 1 [facility] THIAZIDE 7-18 CAPSULE BY ity o f 12.5 mg 00:00: MOUTH [place] capsule 00 DAILY [facility] HYDROCHLORO 2022-0 Yes [id number] 12.5mg TAKE 1 [facility] THIAZIDE 7-18 CAPSULE BY ity o f 12.5 mg 00:00: MOUTH [place] capsule 00 DAILY [facility] HYDROCHLORO 2022-0 Yes [id number] 12.5mg TAKE 1 [facility] THIAZIDE 7-18 CAPSULE BY ity o f 12.5 mg 00:00: MOUTH [place] capsule 00 DAILY [facility] HYDROCHLORO 2022-0 Yes [id number] 12.5mg TAKE 1 [facility] THIAZIDE 7-18 CAPSULE BY ity o f 12.5 mg 00:00: MOUTH [place] capsule 00 DAILY [facility] HYDROCHLORO 2022-0 Yes [id number] 12.5mg TAKE 1 [facility] THIAZIDE 7-18 CAPSULE BY ity o f 12.5 mg 00:00: MOUTH [place] capsule 00 DAILY [facility] HYDROCHLORO 2-0 Yes [id number] 12.5mg TAKE 1 [facility] THIAZIDE 7-18 CAPSULE BY ity o f 12.5 mg 00:00: MOUTH [place] capsule 00 DAILY [facility] HYDROCHLORO 2-0 Yes [id number] 12.5mg TAKE 1 [facility] THIAZIDE 7-18 CAPSULE BY ity o f 12.5 mg 00:00: MOUTH [place] capsule 00 DAILY [facility] HYDROCHLORO 2-0 Yes [id number] 12.5mg TAKE 1 [facility] THIAZIDE 7-18 CAPSULE BY ity o f 12.5 mg 00:00: MOUTH [place] capsule 00 DAILY [facility] HYDROCHLORO 2-0 Yes [id number] 12.5mg TAKE 1 [facility] THIAZIDE 7-18 CAPSULE BY ity o f 12.5 mg 00:00: MOUTH [place] capsule 00 DAILY [facility] HYDROCHLORO 2-0 Yes [id number] 12.5mg TAKE 1 [facility] THIAZIDE 7-18 CAPSULE BY ity o f 12.5 mg 00:00: MOUTH [place] capsule 00 DAILY [facility] HYDROCHLORO 2022-0 Yes [id number] 12.5mg TAKE 1 [facility] THIAZIDE 7-18 CAPSULE BY ity o f 12.5 mg 00:00: MOUTH [place] capsule 00 DAILY [facility] HYDROCHLORO 2-0 Yes [id number] 12.5mg TAKE 1 [facility] THIAZIDE 7-18 CAPSULE BY ity o f 12.5 mg 00:00: MOUTH [place] capsule 00 DAILY [facility] HYDROCHLORO 2022-0 3- No [id number] 12.5mg TAKE 1 [facility] THIAZIDE 7-18 - CAPSULE BY ity of 12.5 mg 00:00: 00:00 MOUTH [place] capsule 00 :00 DAILY [facility] Branch HYDROcodone 2022-0 Yes [id number] 1{tbl} Take [...] Medical times Branch daily. GABAPENTIN 2022-0 Yes [id number] TAKE 1 [facility] 600 mg 5-31 TABLET BY ity of tablet 00:00: MOUTH [place] 00 THREE Medical TIMES Branch DAILY GABAPENTIN 2022-0 Yes [id number] TAKE 1 [facility] 600 mg 5-31 TABLET BY ity of tablet 00:00: MOUTH [place] 00 THREE Medical TIMES Branch DAILY GABAPENTIN 2022-0 Yes [id number] TAKE 1 [facility] 600 mg 5-31 TABLET BY ity of tablet 00:00: MOUTH [place] 00 THREE Medical TIMES Branch DAILY GABAPENTIN 2022-0 Yes [id number] TAKE 1 [facility] 600 mg 5-31 TABLET BY ity of tablet 00:00: MOUTH THREE Medical TIMES Branch DAILY GABAPENTIN Yes [id number] TAKE 1 [facility] 600 mg 5-31 TABLET BY ity of tablet 00:00: MOUTH THREE Medical TIMES Branch DAILY [place] 2022- No TAKE 1 Uni vers e (AMITIZA) 03-31 CAPSULE BY i ty of 24 MCG 00:00: 00:00 MOUTH [place] capsule 00 :00 TWICE MD DAILY [facility] 2022- No TAKE 1 Uni vers e (AMITIZA) 03-31 CAPSULE BY i ty of 24 MCG 00:00: 00:00 MOUTH [place] capsule 00 :00 TWICE MD DAILY [facility] 2022- No TAKE 1 Uni vers e (AMITIZA) 03-31 CAPSULE BY i ty of 24 MCG 00:00: 00:00 MOUTH [place] capsule 00 :00 TWICE MD DAILY [facility] 2022- No TAKE 1 Uni vers e (AMITIZA) 03-31 CAPSULE BY i ty of 24 MCG 00:00: 00:00 MOUTH [place] capsule 00 :00 TWICE MD DAILY [facility] 2022- No TAKE 1 [facility] vers e (AMITIZA) 03-31 CAPSULE BY i ty of 24 MCG 00:00: 00:00 MOUTH [place] capsule 00 :00 TWICE MD DAILY [facility] 2022- No TAKE 1 [facility] vers e (AMITIZA) 03-31 CAPSULE BY i ty of 24 MCG 00:00: 00:00 MOUTH [place] capsule 00 :00 TWICE MD DAILY [facility] 2022- No TAKE 1 [facility] vers e (AMITIZA) 03-31 CAPSULE BY i ty of 24 MCG 00:00: 00:00 MOUTH [place] capsule 00 :00 TWICE MD DAILY [facility] 2022- No TAKE 1 [facility] vers e (AMITIZA) 03-31 CAPSULE BY i ty of 24 MCG 00:00: 00:00 MOUTH [place] capsule 00 :00 TWICE MD DAILY [facility] lubipro[place] 0 2022- No TAKE 1 [facility] vers e (AMITIZA) 03-31 CAPSULE BY i ty of 24 MCG 00:00: 00:00 MOUTH [place] capsule 00 :00 TWICE MD DAILY [facility] GABAPENTIN 0 2021- No [id number] TAKE 1 [facility] 600 mg 03-31 TABLET BY ity of tablet 00:00: 00:00 MOUTH [place] 00 :00 THREE Medical TIMES Branch DAILY Insulin 2021-0 Yes [id number] Use as Uni vers Syringe-Nee 5-18 directed ity of dle U-100 1 00:00: [place] mL 31 x 00 Medical 3/8" Syrg Branch Insulin 2021-0 Yes [id number] Use as Uni vers Syringe-Nee 5-18 directed ity of dle U-100 1 00:00: [place] mL 31 x 00 Medical 3/8" Syrg Branch Insulin 2022-0 Yes [id number] Use as Uni vers Syringe-Nee 5-18 directed ity of dle U-100 1 00:00: [place] mL 31 x 00 Medical 3/8" Syrg Branch Insulin 2022-0 Yes [id number] Use as Uni vers Syringe-Nee 5-18 directed ity of dle U-100 1 00:00: [place] mL 31 x 00 Medical 3/8" Syrg Branch Insulin 2022-0 Yes [id number] Use as Uni vers Syringe-Nee 5-18 directed ity of dle U-100 1 00:00: [place] mL 31 x 00 Medical 3/8" Syrg Branch Insulin 2022-0 Yes [id number] Use as Uni vers Syringe-Nee 5-18 directed ity of dle U-100 1 00:00: [place] mL 31 x 00 Medical 3/8" Syrg Branch Insulin 2022-0 Yes [id number] Use as Uni vers Syringe-Nee 5-18 directed ity of dle U-100 1 00:00: [place] mL 31 x 00 Medical 3/8" Syrg Branch Insulin 2022-0 Yes [id number] Use as Uni vers Syringe-Nee 5-18 directed ity of dle U-100 1 00:00: [place] mL 31 x 00 Medical 3/8" Syrg Branch Insulin 2022-0 Yes [id number] Use as Uni vers Syringe-Nee 5-18 directed ity of dle U-100 1 00:00: [place] mL 31 x 00 Medical 3/8" Syrg Branch Insulin 2022-0 Yes [id number] Use as [facility] vers Syringe-Nee 5-18 directed ity of dle U-100 1 00:00: [place] mL 31 x 00 Medical 3/8" Syrg Branch Insulin 2022-0 Yes [id number] Use as Uni vers Syringe-Nee 5-18 directed ity of dle U-100 1 00:00: [place] mL 31 x 00 Medical 3/8" Syrg Branch Insulin 2022-0 Yes [id number] Use as Uni vers Syringe-Nee 5-18 directed ity of dle U-100 1 00:00: [place] mL 31 x 00 Medical 3/8" Syrg Branch Insulin 2022-0 Yes [id number] Use as Uni vers Syringe-Nee 5-18 directed ity of dle U-100 1 00:00: [place] mL 31 x 00 Medical 3/8" Syrg Branch Insulin 2022-0 Yes [id number] Use as Uni vers Syringe-Nee 5-18 directed ity of dle U-100 1 00:00: [place] mL 31 x 00 Medical 3/8" Syrg Branch Insulin 2022-0 Yes [id number] Use as Uni vers Syringe-Nee 5-18 directed ity of dle U-100 1 00:00: [place] mL 31 x 00 Medical 3/8" Syrg Branch Insulin 2022-0 Yes [id number] Use as Uni vers Syringe-Nee 5-18 directed ity of dle U-100 1 00:00: [place] mL 31 x 00 Medical 3/8" Syrg Branch Insulin 2022-0 Yes [id number] Use as Uni vers Syringe-Nee 5-18 directed ity of dle U-100 1 00:00: [place] mL 31 x 00 Medical 3/8" Syrg Branch Insulin 2022-0 Yes [id number] Use as Uni vers Syringe-Nee 5-18 directed ity of dle U-100 1 00:00: [place] mL 31 x 00 Medical 3/8" Syrg Branch Insulin 2022-0 Yes [id number] Use as Uni vers Syringe-Nee 5-18 directed ity of dle U-100 1 00:00: [place] mL 31 x 00 Medical 3/8" Syrg Branch Insulin 2022-0 Yes [id number] Use as Uni vers Syringe-Nee 5-18 directed ity of dle U-100 1 00:00: [place] mL 31 x 00 Medical 3/8" Syrg Branch Insulin 2022-0 Yes [id number] Use as Uni vers Syringe-Nee 5-18 directed ity of dle U-100 1 00:00: [place] mL 31 x 00 Medical 3/8" Syrg Branch Insulin 2022-0 Yes [id number] Use as Uni vers Syringe-Nee 5-18 directed ity of dle U-100 1 00:00: [place] mL 31 x 00 Medical 3/8" Syrg Branch Insulin 2022-0 Yes [id number] Use as Uni vers Syringe-Nee 5-18 directed ity of dle U-100 1 00:00: [place] mL 31 x 00 Medical 3/8" Syrg Branch Insulin 2022-0 Yes [id number] Use as Uni vers Syringe-Nee 5-18 directed ity of dle U-100 1 00:00: [place] mL 31 x 00 Medical 3/8" Syrg Branch Insulin 2022-0 Yes [id number] Use as Uni vers Syringe-Nee 5-18 directed ity of dle U-100 1 00:00: [place] mL 31 x 00 Medical 3/8" Syrg Branch Insulin 2022-0 Yes [id number] Use as [facility] vers Syringe-Nee 5-18 directed ity of dle U-100 1 00:00: [place] mL 31 x 00 Medical 3/8" Syrg Branch Insulin 2022-0 Yes [id number] Use as Uni vers Syringe-Nee 5-18 directed ity of dle U-100 1 00:00: [place] mL 31 x 00 Medical 3/8" Syrg Branch Insulin 2022-0 Yes [id number] Use as Uni vers Syringe-Nee 5-18 directed ity of dle U-100 1 00:00: [place] mL 31 x 00 Medical 3/8" Syrg Branch Insulin 2022-0 Yes [id number] Use as Uni vers Syringe-Nee 5-18 directed ity of dle U-100 1 00:00: [place] mL 31 x 00 Medical 3/8" Syrg Branch Insulin 2022-0 Yes [id number] Use as Uni vers Syringe-Nee 5-18 directed ity of dle U-100 1 00:00: [place] mL 31 x 00 Medical 3/8" Syrg Branch Insulin 2022-0 Yes [id number] Use as Uni vers Syringe-Nee 5-18 directed ity of dle U-100 1 00:00: [place] mL 31 x 00 Medical 3/8" Syrg Branch Insulin 2022-0 Yes [id number] Use as Uni vers Syringe-Nee 5-18 directed ity of dle U-100 1 00:00: [place] mL 31 x 00 Medical 3/8" Syrg Branch Insulin 2022-0 Yes [id number] Use as [facility] vers Syringe-Nee 5-18 directed ity of dle U-100 1 00:00: [place] mL 31 x 00 Medical 3/8" Syrg Branch Insulin 2022-0 Yes [id number] Use as [facility] vers Syringe-Nee 5-18 directed ity of dle U-100 1 00:00: [place] mL 31 x 00 Medical 3/8" Syrg Branch Insulin 2022-0 Yes [id number] Use as Uni vers Syringe-Nee 5-18 directed ity of dle U-100 1 00:00: [place] mL 31 x 00 Medical 3/8" Syrg Branch Insulin 2022-0 Yes [id number] Use as Uni vers Syringe-Nee 5-18 directed ity of dle U-100 1 00:00: [place] mL 31 x 00 Medical 3/8" Syrg Branch Insulin 2022-0 Yes [id number] Use as Uni vers Syringe-Nee 5-18 directed ity of dle U-100 1 00:00: [place] mL 31 x 00 Medical 3/8" Syrg Branch Insulin 2022-0 Yes [id number] Use as Uni vers Syringe-Nee 5-18 directed ity of dle U-100 1 00:00: [place] mL 31 x 00 Medical 3/8" Syrg Branch Insulin 2022-0 Yes [id number] Use as Uni vers Syringe-Nee 5-18 directed ity of dle U-100 1 00:00: [place] mL 31 x 00 Medical 3/8" Syrg Branch Insulin 2022-0 Yes [id number] Use as Uni vers Syringe-Nee 5-18 directed ity of dle U-100 1 00:00: [place] mL 31 x 00 Medical 3/8" Syrg Branch Insulin 2022-0 Yes [id number] Use as Uni vers Syringe-Nee 5-18 directed ity of dle U-100 1 00:00: [place] mL 31 x 00 Medical 3/8" Syrg Branch Insulin 2022-0 Yes [id number] Use as Uni vers Syringe-Nee 5-18 directed ity of dle U-100 1 00:00: [place] mL 31 x 00 Medical 3/8" Syrg Branch Insulin 2022-0 Yes [id number] Use as Uni vers Syringe-Nee 5-18 directed ity of dle U-100 1 00:00: [place] mL 31 x 00 Medical 3/8" Syrg Branch Insulin 2022-0 Yes [id number] Use as Uni vers Syringe-Nee 5-18 directed ity of dle U-100 1 00:00: [place] mL 31 x 00 Medical 3/8" Syrg Branch Insulin 2022-0 Yes [id number] Use as Uni vers Syringe-Nee 5-18 directed ity of dle U-100 1 00:00: [place] mL 31 x 00 Medical 3/8" Syrg Branch Insulin 2022-0 Yes [id number] Use as Uni vers Syringe-Nee 5-18 directed ity of dle U-100 1 00:00: [place] mL 31 x 00 Medical 3/8" Syrg Branch Insulin 2022-0 Yes [id number] Use as Uni vers Syringe-Nee 5-18 directed ity of dle U-100 1 00:00: [place] mL 31 x 00 Medical 3/8" Syrg Branch Insulin 2022-0 Yes [id number] Use as Uni vers Syringe-Nee 5-18 directed ity of dle U-100 1 00:00: [place] mL 31 x 00 Medical 3/8" Syrg Branch Insulin 2022-0 Yes [id number] Use as Uni vers Syringe-Nee 5-18 directed ity of dle U-100 1 00:00: [place] mL 31 x 00 Medical 3/8" Syrg Branch Insulin 2022-0 Yes [id number] Use as Uni vers Syringe-Nee 5-18 directed ity of dle U-100 1 00:00: [place] mL 31 x 00 Medical 3/8" Syrg Branch Insulin 2022-0 Yes [id number] Use as Uni vers Syringe-Nee 5-18 directed ity of dle U-100 1 00:00: [place] mL 31 x 00 Medical 3/8" Syrg Branch Insulin 2022-0 Yes [id number] Use as Uni vers Syringe-Nee 5-18 directed ity of dle U-100 1 00:00: [place] mL 31 x 00 Medical 3/8" Syrg Branch Insulin 2022-0 Yes [id number] Use as Uni vers Syringe-Nee 5-18 directed ity of dle U-100 1 00:00: [place] mL 31 x 00 Medical 3/8" Syrg Branch Insulin 2022-0 Yes [id number] Use as Uni vers Syringe-Nee 5-18 directed ity of dle U-100 1 00:00: [place] mL 31 x 00 Medical 3/8" Syrg Branch Insulin 2022-0 Yes [id number] Use as Uni vers Syringe-Nee 5-18 directed ity of dle U-100 1 00:00: [place] mL 31 x 00 Medical 3/8" Syrg Branch Insulin 2022-0 Yes [id number] Use as Uni vers Syringe-Nee 5-18 directed ity of dle U-100 1 00:00: [place] mL 31 x 00 Medical 3/8" Syrg Branch Insulin 2022-0 Yes [id number] Use as Uni vers Syringe-Nee 5-18 directed ity of dle U-100 1 00:00: [place] mL 31 x 00 Medical 3/8" Syrg Branch Insulin 2022-0 Yes [id number] Use as Uni vers Syringe-Nee 5-18 directed ity of dle U-100 1 00:00: [place] mL 31 x 00 Medical 3/8" Syrg Branch Insulin 2022-0 Yes [id number] Use as Uni vers Syringe-Nee 5-18 directed ity of dle U-100 1 00:00: [place] mL 31 x 00 Medical 3/8" Syrg Branch Insulin 2022-0 Yes [id number] Use as Uni vers Syringe-Nee 5-18 directed ity of dle U-100 1 00:00: [place] mL 31 x 00 Medical 38" Syrg Branch METFORMIN 2-0 Yes [id number] TAKE 1 U nivers 1,000 mg 5-16 TABLET BY ity of tablet 00:00: MOUTH TWICE Medical DAILY WITH Branch MEALS HYDRALAZINE 2021-0 Yes [id number] TAKE 1 [facility] 100 mg 5-16 TABLET BY ity of tablet 00:00: MOUTH THREE Medical TIMES Branch DAILY METFORMIN 2-0 Yes [id number] TAKE 1 U nivers 1,000 mg 5-16 TABLET BY ity of tablet 00:00: MOUTH TWICE Medical DAILY WITH Branch MEALS HYDRALAZINE 2021-0 Yes [id number] TAKE 1 [facility] 100 mg 5-16 TABLET BY ity of tablet 00:00: [facility] THREE Medical TIMES Branch DAILY METFORMIN 2-0 Yes [id number] TAKE 1 U nivers 1,000 mg 5-16 TABLET BY ity of tablet 00:00: [facility] TWICE Medical DAILY WITH Branch MEALS HYDRALAZINE 2021-0 Yes [id number] TAKE 1 [facility] 100 mg 5-16 TABLET BY ity of tablet 00:00: MOUTH THREE Medical TIMES Branch DAILY METFORMIN 2-0 Yes [id number] TAKE 1 U nivers 1,000 mg 5-16 TABLET BY ity of tablet 00:00: [facility] TWICE Medical DAILY WITH Branch MEALS HYDRALAZINE 2021-0 Yes [id number] TAKE 1 [facility] 100 mg 5-16 TABLET BY ity of tablet 00:00: [facility] THREE Medical TIMES Branch DAILY METFORMIN 2-0 Yes [id number] TAKE 1 U nivers 1,000 mg 5-16 TABLET BY ity of tablet 00:00: MOUTH TWICE Medical DAILY WITH Branch MEALS HYDRALAZINE 2-0 Yes [id number] TAKE 1 [facility] 100 mg 5-16 TABLET BY ity of tablet 00:00: MOUTH [place] THREE Medical TIMES Branch DAILY METFORMIN 2-0 Yes [id number] TAKE 1 U nivers 1,000 mg 5-16 TABLET BY ity of tablet 00:00: MOUTH TWICE Medical DAILY WITH Branch MEALS HYDRALAZINE 2-0 Yes [id number] TAKE 1 [facility] 100 mg 5-16 TABLET BY ity of tablet 00:00: [facility] THREE Medical TIMES Branch DAILY METFORMIN 2-0 Yes [id number] TAKE 1 U nivers 1,000 mg 5-16 TABLET BY ity of tablet 00:00: MOUTH TWICE Medical DAILY WITH Branch MEALS HYDRALAZINE 2022-0 Yes [id number] TAKE 1 [facility] 100 mg 5-16 TABLET BY ity of tablet 00:00: MOUTH THREE Medical TIMES Branch DAILY METFORMIN 2022-0 Yes [id number] TAKE 1 U nivers 1,000 mg 5-16 TABLET BY ity of tablet 00:00: MOUTH TWICE Medical DAILY WITH Branch MEALS HYDRALAZINE 2-0 Yes [id number] TAKE 1 [facility] 100 mg 5-16 TABLET BY ity of tablet 00:00: MOUTH THREE Medical TIMES Branch DAILY METFORMIN 2022-0 Yes [id number] TAKE 1 U nivers 1,000 mg 5-16 TABLET BY ity of tablet 00:00: MOUTH TWICE Medical DAILY WITH Branch MEALS HYDRALAZINE 2-0 Yes [id number] TAKE 1 [facility] 100 mg 5-16 TABLET BY ity of tablet 00:00: MOUTH THREE Medical TIMES Branch DAILY METFORMIN 2022-0 Yes [id number] TAKE 1 U nivers 1,000 mg 5-16 TABLET BY ity of tablet 00:00: MOUTH TWICE Medical DAILY WITH Branch MEALS HYDRALAZINE 2-0 Yes [id number] TAKE 1 [facility] 100 mg 5-16 TABLET BY ity of tablet 00:00: MOUTH THREE Medical TIMES Branch DAILY METFORMIN 2022-0 Yes [id number] TAKE 1 U nivers 1,000 mg 5-16 TABLET BY ity of tablet 00:00: MOUTH TWICE Medical DAILY WITH Branch MEALS HYDRALAZINE 2-0 Yes [id number] TAKE 1 [facility] 100 mg 5-16 TABLET BY ity of tablet 00:00: MOUTH THREE Medical TIMES Branch DAILY METFORMIN 2022-0 Yes [id number] TAKE 1 U nivers 1,000 mg 5-16 TABLET BY ity of tablet 00:00: MOUTH TWICE Medical DAILY WITH Branch MEALS METFORMIN 2022-0 Yes [id number] TAKE 1 U nivers 1,000 mg 5-16 TABLET BY ity of tablet 00:00: MOUTH 00 TWICE Medical DAILY WITH Branch MEALS METFORMIN 2022-0 Yes [id number] TAKE 1 U nivers 1,000 mg 5-16 TABLET BY ity of tablet 00:00: MOUTH [place] 00 TWICE Medical DAILY WITH Branch MEALS METFORMIN 2022-0 Yes [id number] TAKE 1 U nivers 1,000 mg 5-16 TABLET BY ity of tablet 00:00: MOUTH 00 TWICE Medical DAILY WITH Branch MEALS METFORMIN 2022-0 Yes [id number] TAKE 1 U nivers 1,000 mg 5-16 TABLET BY ity of tablet 00:00: MOUTH 00 TWICE Medical DAILY WITH Branch MEALS METFORMIN 2022-0 Yes [id number] TAKE 1 U nivers 1,000 mg 5-16 TABLET BY ity of tablet 00:00: MOUTH TWICE Medical DAILY WITH Branch MEALS METFORMIN 2022-0 Yes [id number] TAKE 1 U nivers 1,000 mg 5-16 TABLET BY ity of tablet 00:00: MOUTH TWICE Medical DAILY WITH Branch MEALS METFORMIN 2022-0 Yes [id number] TAKE 1 U nivers 1,000 mg 5-16 TABLET BY ity of tablet 00:00: MOUTH TWICE Medical DAILY WITH Branch MEALS METFORMIN 2022-0 Yes [id number] TAKE 1 U nivers 1,000 mg 5-16 TABLET BY ity of tablet 00:00: MOUTH TWICE Medical DAILY WITH Branch MEALS METFORMIN 2022-0 Yes [id number] TAKE 1 U nivers 1,000 mg 5-16 TABLET BY ity of tablet 00:00: MOUTH TWICE Medical DAILY WITH Branch MEALS METFORMIN 2022-0 Yes [id number] TAKE 1 U nivers 1,000 mg 5-16 TABLET BY ity of tablet 00:00: MOUTH TWICE Medical DAILY WITH Branch MEALS METFORMIN 2022-0 Yes [id number] TAKE 1 U nivers 1,000 mg 5-16 TABLET BY ity of tablet 00:00: MOUTH TWICE Medical DAILY WITH Branch MEALS METFORMIN 2022-0 Yes [id number] TAKE 1 U nivers 1,000 mg 5-16 TABLET BY ity of tablet 00:00: MOUTH 00 TWICE Medical DAILY WITH Branch MEALS METFORMIN 2022-0 Yes [id number] TAKE 1 U nivers 1,000 mg 5-16 TABLET BY ity of tablet 00:00: MOUTH 00 TWICE Medical DAILY WITH Branch MEALS METFORMIN 2022-0 Yes [id number] TAKE 1 U nivers 1,000 mg 5-16 TABLET BY ity of tablet 00:00: MOUTH 00 TWICE Medical DAILY WITH Branch MEALS METFORMIN 2022-0 Yes [id number] TAKE 1 U nivers 1,000 mg 5-16 TABLET BY ity of tablet 00:00: MOUTH [place] 00 TWICE Medical DAILY WITH Branch MEALS METFORMIN 2-0 Yes [id number] TAKE 1 U nivers 1,000 mg 5-16 TABLET BY ity of tablet 00:00: MOUTH [place] 00 TWICE Medical DAILY WITH Branch MEALS METFORMIN 2-0 Yes [id number] TAKE 1 U nivers 1,000 mg 5-16 TABLET BY ity of tablet 00:00: MOUTH [place] 00 TWICE Medical DAILY WITH Branch MEALS METFORMIN 2021-0 Yes [id number] TAKE 1 U nivers 1,000 mg 5-16 TABLET BY ity of tablet 00:00: MOUTH [place] 00 TWICE Medical DAILY WITH Branch MEALS METFORMIN 2021-0 Yes [id number] TAKE 1 U nivers 1,000 mg 5-16 TABLET BY ity of tablet 00:00: MOUTH [place] 00 TWICE Medical DAILY WITH Branch MEALS METFORMIN 2021-0 Yes [id number] TAKE 1 U nivers 1,000 mg 5-16 TABLET BY ity of tablet 00:00: MOUTH [place] 00 TWICE Medical DAILY WITH Branch MEALS METFORMIN 2021-0 Yes [id number] TAKE 1 U nivers 1,000 mg 5-16 TABLET BY ity of tablet 00:00: MOUTH [place] 00 TWICE Medical DAILY WITH Branch MEALS METFORMIN 2-0 2021- No [id number] TAKE 1 [facility] 1,000 mg 5-16 11-21 TABLET BY ity o f tablet 00:00: 00:00 MOUTH [place] 00 :00 TWICE Medical DAILY WITH Branch MEALS METFORMIN 2-0 2021- No [id number] TAKE 1 [facility] 1,000 mg 5-16 11-21 TABLET BY ity o f tablet 00:00: 00:00 MOUTH [place] 00 :00 TWICE Medical DAILY WITH Branch MEALS HYDRALAZINE 2021-0 2021- No [id number] TAKE 1 [facility] 100 mg 5-16 09-06 TABLET BY ity of tablet 00:00: 00:00 MOUTH [place] 00 :00 THREE Medical TIMES Branch DAILY LISINOPRIL 2021-0 Yes [id number] TAKE 1/2 [facility] 40 mg 5-13 TABLET BY ity of tablet 00:00: MOUTH [place] 00 TWICE Medical DAILY Branch LISINOPRIL 2021-0 Yes [id number] TAKE 1/2 [facility] 40 mg 5-13 TABLET BY ity of tablet 00:00: MOUTH [place] 00 TWICE Medical DAILY Branch LISINOPRIL 2021-0 Yes [id number] TAKE 1/2 [facility] 40 mg 5-13 TABLET BY ity of tablet 00:00: MOUTH [place] 00 TWICE Medical DAILY Branch LISINOPRIL 2021-0 Yes [id number] TAKE 1/2 [facility] 40 mg 5-13 TABLET BY ity of tablet 00:00: MOUTH 00 TWICE Medical DAILY Branch LISINOPRIL 2021-0 Yes [id number] TAKE 1/2 [facility] 40 mg 5-13 TABLET BY ity of tablet 00:00: MOUTH [place] 00 TWICE Medical DAILY Branch LISINOPRIL 2021-0 Yes [id number] TAKE 1/2 [facility] 40 mg 5-13 TABLET BY ity of tablet 00:00: MOUTH 00 TWICE Medical DAILY Branch LISINOPRIL 2021-0 Yes [id number] TAKE 1/2 [facility] 40 mg 5-13 TABLET BY ity of tablet 00:00: MOUTH 00 TWICE Medical DAILY Branch LISINOPRIL 2021-0 2021- No [id number] TAKE 1/2 [facility] 40 mg 5-13 08-08 TABLET BY ity of tablet 00:00: 00:00 MOUTH [place] 00 :00 TWICE Medical DAILY Branch LISINOPRIL 2021-0 2021- No [id number] TAKE 1/2 [facility] 40 mg 5-13 08-08 TABLET BY ity of tablet 00:00: 00:00 MOUTH [place] 00 :00 TWICE Medical DAILY Branch HUMULIN 0 Yes [id number] ADMINISTER Univers 70/30 U-100 5-11 70 UNITS ity of INSULIN 100 00:00: [place]ER THE [place] unit/mL 00 SKIN EVERY Medica l (70-30) MORNING Branch suspension THEN ADMINISTER 60 UNITS UNDER THE SKIN EVERY EVENING HUMULIN Yes [id number] ADMINISTER Univers 70/30 U-100 5-11 70 UNITS ity of INSULIN 100 00:00: [place] THE [place] unit/mL 00 SKIN EVERY Medica l (70-30) MORNING Branch suspension THEN ADMINISTER 60 UNITS UNDER THE SKIN EVERY EVENING HUMULIN Yes [id number] ADMINISTER [facility] 70/30 U-100 5-11 70 UNITS ity of INSULIN 100 00:00: UNDER THE [place] unit/mL 00 SKIN EVERY Medica l (70-30) MORNING Branch suspension THEN ADMINISTER 60 UNITS UNDER THE SKIN EVERY EVENING HUMULIN Yes [id number] ADMINISTER [facility] 70/30 U-100 5-11 70 UNITS ity of INSULIN 100 00:00: UNDER THE [place] unit/mL 00 SKIN EVERY Medica l (70-30) MORNING Branch suspension THEN ADMINISTER 60 UNITS UNDER THE SKIN EVERY EVENING HUMULIN Yes [id number] ADMINISTER [facility] 70/30 U-100 5-11 70 UNITS ity of INSULIN 100 00:00: UNDER THE [place] unit/mL 00 SKIN EVERY Medica l (70-30) MORNING Branch suspension THEN ADMINISTER 60 UNITS UNDER THE SKIN EVERY EVENING HUMULIN 2021- No [id number] ADMINISTER [facility] 70/30 U-100 5-11 08-03 70 [...] 31 gauge 00 :00 TWICE MD x 15" DAILY WITH Suraj so syrg MEALS [facility] BD Insulin 2022- No USE 1 Unive rs Syringe 03-03 SYRINGE ity o f U-500 1/2 00:00: 00:00 DIRECTED Frankie as mL 31 gauge 00 :00 TWICE MD x 15/64" DAILY WITH Suraj so syrg MEALS [facility] [place] Insulin 2022- No USE 1 Unive rs Syringe 03-03 SYRINGE ity o f U-500 1/2 00:00: 00:00 DIRECTED Frankie as mL 31 gauge 00 :00 TWICE MD x 1564" DAILY WITH Suraj so syrg MEALS [facility] [place] Insulin 2022- No USE 1 Unive rs Syringe 03-03 SYRINGE ity o f U-500 1/2 00:00: 00:00 DIRECTED Frankie as mL 31 gauge 00 :00 TWICE MD x 1564" DAILY WITH Suraj so syrg MEALS [facility], [place] Insulin 2022- No USE 1 Unive rs Syringe 03-03 SYRINGE ity o f U-500 1/2 00:00: 00:00 DIRECTED [place] as mL 31 gauge 00 :00 TWICE MD x 1564" DAILY WITH Suraj so syrg MEALS [facility], [place] Insulin 2022- No USE 1 Unive rs Syringe 03-03 SYRINGE ity o f U-500 1/2 00:00: 00:00 DIRECTED [place] as mL 31 gauge 00 :00 TWICE MD x 1564" DAILY WITH Suraj so syrg MEALS [facility], [place] Insulin 2022- No USE 1 Unive rs Syringe 03-03 SYRINGE ity o f U-500 1/2 00:00: 00:00 DIRECTED [place] as mL 31 gauge 00 :00 TWICE MD x 15/64" DAILY WITH Suraj so syrg MEALS [facility], [place] Insulin 2022- No USE 1 Unive rs Syringe 03-03 SYRINGE ity o f U-500 1/2 00:00: 00:00 DIRECTED [place] as mL 31 gauge 00 :00 TWICE MD x 1564" DAILY WITH Suraj so syrg MEALS [facility], [place] Insulin 2022- No USE 1 Unive rs Syringe 03-03 SYRINGE ity o f U-500 1/2 00:00: 00:00 DIRECTED [place] as mL 31 gauge 00 :00 TWICE MD x 1564" DAILY WITH Suraj so syrg MEALS [facility] GABAPENTIN 0 Yes [id number] TAKE 1 [facility] 600 mg 5-02 TABLET BY ity of tablet 00:00: MOUTH [place] 00 THREE Medical TIMES Branch DAILY BD INSULIN Yes [id number] USE 1 U nivers SYRINGE 5-02 SYRINGE ity of U-500 2 00:00: TWICE [place] mL 31 gauge 00 DAILY WITH Me dical x 15/64" MEALS. Branch Syrg BD INSULIN Yes [id number] USE 1 U nivers SYRINGE 5-02 SYRINGE ity of U-500 2 00:00: TWICE [place] mL 31 gauge 00 DAILY WITH Me dical x 15/64" MEALS. Branch Syrg BD INSULIN Yes [id number] USE 1 U nivers SYRINGE 5-02 SYRINGE ity of U-500 2 00:00: TWICE [place] mL 31 gauge 00 DAILY WITH Me dical x 15/64" MEALS. Branch Syrg BD INSULIN Yes [id number] USE 1 U nivers SYRINGE 5-02 SYRINGE ity of U-500 2 00:00: TWICE [place] mL 31 gauge 00 DAILY WITH Me dical x 15/64" MEALS. Branch Syrg BD INSULIN Yes [id number] USE 1 U nivers SYRINGE 5-02 SYRINGE ity of U-500 2 00:00: TWICE [place] mL 31 gauge 00 DAILY WITH Me dical x 15/64" MEALS. Branch Syrg BD INSULIN Yes [id number] USE 1 U nivers SYRINGE 5-02 SYRINGE ity of U-500 2 00:00: TWICE [place] mL 31 gauge 00 DAILY WITH Me dical x 15/64" MEALS. Branch Syrg BD INSULIN Yes [id number] USE 1 U nivers SYRINGE 5-02 SYRINGE ity of U-500 2 00:00: TWICE [place] mL 31 gauge 00 DAILY WITH Me dical x 15/64" MEALS. Branch Syrg BD INSULIN Yes [id number] USE 1 U nivers SYRINGE 5-02 SYRINGE ity of U-500 2 00:00: TWICE [place] mL 31 gauge 00 DAILY WITH Me dical x 15/64" MEALS. Branch Syrg BD INSULIN Yes [id number] USE 1 U nivers SYRINGE 5-02 SYRINGE ity of U-500 2 00:00: TWICE [place] mL 31 gauge 00 DAILY WITH Me dical x 15/64" MEALS. Branch Syrg BD INSULIN 0 Yes [id number] USE 1 U nivers SYRINGE 5-02 SYRINGE ity of U-500 2 00:00: TWICE [place] mL 31 gauge 00 DAILY WITH Me dical x 15/64" MEALS. Branch Syrg BD INSULIN 2021-0 Yes [id number] USE 1 U nivers SYRINGE 5-02 SYRINGE ity of U-500 2 00:00: TWICE [place] mL 31 gauge 00 DAILY WITH Me dical x 15/64" MEALS. Branch Syrg BD INSULIN 0 Yes [id number] USE 1 U nivers SYRINGE 5-02 SYRINGE ity of U-500 2 00:00: TWICE [place] mL 31 gauge 00 DAILY WITH Me dical x 15/64" MEALS. Branch Syrg BD INSULIN 2021-0 Yes [id number] USE 1 U nivers SYRINGE 5-02 SYRINGE ity of U-500 2 00:00: TWICE [place] mL 31 gauge 00 DAILY WITH Me dical x 15/64" MEALS. Branch Syrg BD INSULIN 0 Yes [id number] USE 1 U nivers SYRINGE 5-02 SYRINGE ity of U-500 2 00:00: TWICE [place] mL 31 gauge 00 DAILY WITH Me dical x 15/64" MEALS. Branch Syrg BD INSULIN 2021-0 Yes [id number] USE 1 U nivers SYRINGE 5-02 SYRINGE ity of U-500 2 00:00: TWICE [place] mL 31 gauge 00 DAILY WITH Me dical x 15/64" MEALS. Branch Syrg BD INSULIN 2021-0 Yes [id number] USE 1 U nivers SYRINGE 5-02 SYRINGE ity of U-500 2 00:00: TWICE [place] mL 31 gauge 00 DAILY WITH Me dical x 15/64" MEALS. Branch Syrg BD INSULIN 2021-0 Yes [id number] USE 1 U nivers SYRINGE 5-02 SYRINGE ity of U-500 2 00:00: TWICE [place] mL 31 gauge 00 DAILY WITH Me dical x 15/64" MEALS. Branch Syrg BD INSULIN 2021-0 Yes [id number] USE 1 U nivers SYRINGE 5-02 SYRINGE ity of U-500 2 00:00: TWICE [place] mL 31 gauge 00 DAILY WITH Me dical x 15/64" MEALS. Branch Syrg BD INSULIN 2021-0 Yes [id number] USE 1 U nivers SYRINGE 5-02 SYRINGE ity of U-500 2 00:00: TWICE [place] mL 31 gauge 00 DAILY WITH Me dical x 15/64" MEALS. Branch Syrg BD INSULIN 2021-0 Yes [id number] USE 1 U nivers SYRINGE 5-02 SYRINGE ity of U-500 2 00:00: TWICE [place] mL 31 gauge 00 DAILY WITH Me dical x 15/64" MEALS. Branch Syrg BD INSULIN 2021-0 Yes [id number] USE 1 U nivers SYRINGE 5-02 SYRINGE ity of U-500 2 00:00: TWICE [place] mL 31 gauge 00 DAILY WITH Me dical x 15/64" MEALS. Branch Syrg BD INSULIN 2021-0 Yes [id number] USE 1 U nivers SYRINGE 5-02 SYRINGE ity of U-500 2 00:00: TWICE [place] mL 31 gauge 00 DAILY WITH Me dical x 15/64" MEALS. Branch Syrg BD INSULIN 2021-0 Yes [id number] USE 1 U nivers SYRINGE 5-02 SYRINGE ity of U-500 2 00:00: TWICE [place] mL 31 gauge 00 DAILY WITH Me dical x 15/64" MEALS. Branch Syrg BD INSULIN 2021-0 Yes [id number] USE 1 U nivers SYRINGE 5-02 SYRINGE ity of U-500 2 00:00: TWICE [place] mL 31 gauge 00 DAILY WITH Me dical x 15/64" MEALS. Branch Syrg BD INSULIN 2021-0 Yes [id number] USE 1 U nivers SYRINGE 5-02 SYRINGE ity of U-500 2 00:00: TWICE [place] mL 31 gauge 00 DAILY WITH Me dical x 15/64" MEALS. Branch Syrg BD INSULIN 2021-0 Yes [id number] USE 1 U nivers SYRINGE 5-02 SYRINGE ity of U-500 2 00:00: TWICE [place] mL 31 gauge 00 DAILY WITH Me dical x 15/64" MEALS. Branch Syrg BD INSULIN 2021-0 Yes [id number] USE 1 U nivers SYRINGE 5-02 SYRINGE ity of U-500 2 00:00: TWICE [place] mL 31 gauge 00 DAILY WITH Me dical x 15/64" MEALS. Branch Syrg BD INSULIN 2021-0 Yes [id number] USE 1 U nivers SYRINGE 5-02 SYRINGE ity of U-500 2 00:00: TWICE [place] mL 31 gauge 00 DAILY WITH Me dical x 15/64" MEALS. Branch Syrg BD INSULIN 2021-0 Yes [id number] USE 1 U nivers SYRINGE 5-02 SYRINGE ity of U-500 2 00:00: TWICE [place] mL 31 gauge 00 DAILY WITH Me dical x 15/64" MEALS. Branch Syrg BD INSULIN 2021-0 Yes [id number] USE 1 U nivers SYRINGE 5-02 SYRINGE ity of U-500 2 00:00: TWICE [place] mL 31 gauge 00 DAILY WITH Me dical x 15/64" MEALS. Branch Syrg BD INSULIN 2021-0 Yes [id number] USE 1 U nivers SYRINGE 5-02 SYRINGE ity of U-500 2 00:00: TWICE [place] mL 31 gauge 00 DAILY WITH Me dical x 15/64" MEALS. Branch Syrg BD INSULIN 2021-0 Yes [id number] USE 1 U nivers SYRINGE 5-02 SYRINGE ity of U-500 2 00:00: TWICE [place] mL 31 gauge 00 DAILY WITH Me dical x 15/64" MEALS. Branch Syrg BD INSULIN 0 Yes [id number] USE 1 U nivers SYRINGE 5-02 SYRINGE ity of U-500 2 00:00: TWICE [place] mL 31 gauge 00 DAILY WITH Me dical x 15/64" MEALS. Branch Syrg BD INSULIN 2021-0 Yes [id number] USE 1 U nivers SYRINGE 5-02 SYRINGE ity of U-500 2 00:00: TWICE [place] mL 31 gauge 00 DAILY WITH Me dical x 15/64" MEALS. Branch Syrg BD INSULIN 2021-0 Yes [id number] USE 1 U nivers SYRINGE 5-02 SYRINGE ity of U-500 2 00:00: TWICE [place] mL 31 gauge 00 DAILY WITH Me dical x 15/64" MEALS. Branch Syrg BD INSULIN 2021-0 Yes [id number] USE 1 U nivers SYRINGE 5-02 SYRINGE ity of U-500 2 00:00: TWICE [place] mL 31 gauge 00 DAILY WITH Me dical x 15/64" MEALS. Branch Syrg BD INSULIN 2021-0 Yes [id number] USE 1 U nivers SYRINGE 5-02 SYRINGE ity of U-500 2 00:00: TWICE [place] mL 31 gauge 00 DAILY WITH Me dical x 15/64" MEALS. Branch Syrg BD INSULIN 2021-0 Yes [id number] USE 1 U nivers SYRINGE 5-02 SYRINGE ity of U-500 2 00:00: TWICE [place] mL 31 gauge 00 DAILY WITH Me dical x 15/64" MEALS. Branch Syrg BD INSULIN 2021-0 Yes [id number] USE 1 U nivers SYRINGE 5-02 SYRINGE ity of U-500 2 00:00: TWICE [place] mL 31 gauge 00 DAILY WITH Me dical x 15/64" MEALS. Branch Syrg BD INSULIN 2021-0 Yes [id number] USE 1 U nivers SYRINGE 5-02 SYRINGE ity of U-500 2 00:00: TWICE [place] mL 31 gauge 00 DAILY WITH Me dical x 15/64" MEALS. Branch Syrg BD INSULIN 0 Yes [id number] USE 1 U nivers SYRINGE 5-02 SYRINGE ity of U-500 2 00:00: TWICE [place] mL 31 gauge 00 DAILY WITH Me dical x 15/64" MEALS. Branch Syrg BD INSULIN 2021-0 Yes [id number] USE 1 U nivers SYRINGE 5-02 SYRINGE ity of U-500 2 00:00: TWICE [place] mL 31 gauge 00 DAILY WITH Me dical x 15/64" MEALS. Branch Syrg BD INSULIN 2021-0 Yes [id number] USE 1 U nivers SYRINGE 5-02 SYRINGE ity of U-500 2 00:00: TWICE [place] mL 31 gauge 00 DAILY WITH Me dical x 15/64" MEALS. Branch Syrg BD INSULIN 2021-0 Yes [id number] USE 1 U nivers SYRINGE 5-02 SYRINGE ity of U-500 2 00:00: TWICE [place] mL 31 gauge 00 DAILY WITH Me dical x 15/64" MEALS. Branch Syrg BD INSULIN 2021-0 Yes [id number] USE 1 U nivers SYRINGE 5-02 SYRINGE ity of U-500 2 00:00: TWICE [place] mL 31 gauge 00 DAILY WITH Me dical x 15/64" MEALS. Branch Syrg BD INSULIN 2021-0 Yes [id number] USE 1 U nivers SYRINGE 5-02 SYRINGE ity of U-500 2 00:00: TWICE [place] mL 31 gauge 00 DAILY WITH Me dical x 15/64" MEALS. Branch Syrg BD INSULIN 2021-0 Yes [id number] USE 1 U nivers SYRINGE 5-02 SYRINGE ity of U-500 2 00:00: TWICE [place] mL 31 gauge 00 DAILY WITH Me dical x 15/64" MEALS. Branch Syrg BD INSULIN 2021-0 Yes [id number] USE 1 U nivers SYRINGE 5-02 SYRINGE ity of U-500 2 00:00: TWICE [place] mL 31 gauge 00 DAILY WITH Me dical x 15/64" MEALS. Branch Syrg BD INSULIN 2021-0 Yes [id number] USE 1 U nivers SYRINGE 5-02 SYRINGE ity of U-500 2 00:00: TWICE [place] mL 31 gauge 00 DAILY WITH Me dical x 15/64" MEALS. Branch Syrg BD INSULIN 2021-0 Yes [id number] USE 1 U nivers SYRINGE 5-02 SYRINGE ity of U-500 2 00:00: TWICE [place] mL 31 gauge 00 DAILY WITH Me dical x 15/64" MEALS. Branch Syrg BD INSULIN 2021-0 Yes [id number] USE 1 U nivers SYRINGE 5-02 SYRINGE ity of U-500 2 00:00: TWICE [place] mL 31 gauge 00 DAILY WITH Me dical x 15/64" MEALS. Branch Syrg BD INSULIN 2021-0 Yes [id number] USE 1 U nivers SYRINGE 5-02 SYRINGE ity of U-500 2 00:00: TWICE [place] mL 31 gauge 00 DAILY WITH Me dical x 15/64" MEALS. Branch Syrg BD INSULIN 2021-0 Yes [id number] USE 1 U nivers SYRINGE 5-02 SYRINGE ity of U-500 2 00:00: TWICE [place] mL 31 gauge 00 DAILY WITH Me dical x 15/64" MEALS. Branch Syrg BD INSULIN 2021-0 Yes [id number] USE 1 U nivers SYRINGE 5-02 SYRINGE ity of U-500 2 00:00: TWICE [place] mL 31 gauge 00 DAILY WITH Me dical x 15/64" MEALS. Branch Syrg BD INSULIN 2021-0 Yes [id number] USE 1 U nivers SYRINGE 5-02 SYRINGE ity of U-500 12 00:00: TWICE [place] mL 31 gauge 00 DAILY WITH Me dical x 15/64" MEALS. Branch Syrg BD INSULIN 2021-0 Yes [id number] USE 1 U nivers SYRINGE 5-02 SYRINGE ity of U-500 2 00:00: TWICE [place] mL 31 gauge 00 DAILY WITH Me dical x 15/64" MEALS. Branch Syrg BD INSULIN 2021-0 Yes [id number] USE 1 U nivers SYRINGE 5-02 SYRINGE ity of U-500 2 00:00: TWICE [place] mL 31 gauge 00 DAILY WITH Me dical x 15/64" MEALS. Branch Syrg BD INSULIN 0 Yes [id number] USE 1 U nivers SYRINGE 5-02 SYRINGE ity of U-500 2 00:00: TWICE [place] mL 31 gauge 00 DAILY WITH Me dical x 15/64" MEALS. Branch Syrg BD INSULIN 2021-0 Yes [id number] USE 1 U nivers SYRINGE 5-02 SYRINGE ity of U-500 2 00:00: TWICE [place] mL 31 gauge 00 DAILY WITH Me dical x 15/64" MEALS. Branch Syrg BD INSULIN 2021-0 Yes [id number] USE 1 U nivers SYRINGE 5-02 SYRINGE ity of U-500 2 00:00: TWICE [place] mL 31 gauge 00 DAILY WITH Me dical x 15/64" MEALS. Branch Syrg GABAPENTIN 2021-0 2021- No [id number] TAKE 1 [facility] 600 mg 5-02 05-31 TABLET BY ity of tablet 00:00: 00:00 MOUTH [place] 00 :00 THREE Medical TIMES Branch DAILY sucralfate 2021-0 Yes [id number] 1g Take 1 [facility] 1 gram 3-27 tablet by ity of tablet 00:00: mouth [place] 00 before Medical meals and Branch at bedtime. sucralfate 2021-0 Yes [id number] 1g Take 1 [facility] 1 gram 3-27 tablet by ity of tablet 00:00: mouth [place] 00 before Medical meals and Branch at bedtime. sucralfate 2021-0 Yes [id number] 1g Take 1 [facility] 1 gram 3-27 tablet by ity of tablet 00:00: mouth [place] 00 before Medical meals and Branch at bedtime. sucralfate 2022-0 Yes [id number] 1g Take 1 [facility] 1 gram 3-27 tablet by ity of tablet 00:00: mouth [place] 00 before Medical meals and Branch at bedtime. sucralfate 2022-0 Yes [id number] 1g Take 1 [facility] 1 gram 3-27 tablet by ity of tablet 00:00: mouth [place] 00 before Medical meals and Branch at bedtime. sucralfate 2022-0 Yes [id number] 1g Take 1 [facility] 1 gram 3-27 tablet by ity of tablet 00:00: mouth [place] 00 before Medical meals and Branch at bedtime. sucralfate 2022-0 Yes [id number] 1g Take 1 [facility] 1 gram 3-27 tablet by ity of tablet 00:00: mouth [place] 00 before Medical meals and Branch at bedtime. sucralfate 2-0 Yes [id number] 1g Take 1 [facility] 1 gram 3-27 tablet by ity of tablet 00:00: mouth [place] 00 before Medical meals and Branch at bedtime. sucralfate 2021-0 Yes [id number] 1g Take 1 [facility] 1 gram 3-27 tablet by ity of tablet 00:00: mouth [place] 00 before Medical meals and Branch at bedtime. sucralfate 2-0 Yes [id number] 1g Take 1 [facility] 1 gram 3-27 tablet by ity of tablet 00:00: mouth [place] 00 before Medical meals and Branch at bedtime. sucralfate 2022-0 Yes [id number] 1g Take 1 [facility] 1 gram 3-27 tablet by ity of tablet 00:00: mouth [place] 00 before Medical meals and Branch at bedtime. sucralfate 2022-0 Yes [id number] 1g Take 1 [facility] 1 gram 3-27 tablet by ity of tablet 00:00: mouth [place] 00 before Medical meals and Branch at bedtime. sucralfate 2022-0 Yes [id number] 1g Take 1 [facility] 1 gram 3-27 tablet by ity of tablet 00:00: mouth [place] 00 before Medical meals and Branch at bedtime. sucralfate 2022-0 Yes [id number] 1g Take 1 [facility] 1 gram 3-27 tablet by ity of tablet 00:00: mouth [place] 00 before Medical meals and Branch at bedtime. sucralfate 2022-0 Yes [id number] 1g Take 1 [facility] 1 gram 3-27 tablet by ity of tablet 00:00: mouth [place] 00 before Medical meals and Branch at bedtime. sucralfate 2022-0 Yes [id number] 1g Take 1 [facility] 1 gram 3-27 tablet by ity of tablet 00:00: mouth [place] 00 before Medical meals and Branch at bedtime. sucralfate 2022-0 Yes [id number] 1g Take 1 [facility] 1 gram 3-27 tablet by ity of tablet 00:00: mouth [place] 00 before Medical meals and Branch at bedtime. sucralfate 2022-0 Yes [id number] 1g Take 1 [facility] 1 gram 3-27 tablet by ity of tablet 00:00: mouth [place] 00 before Medical meals and Branch at bedtime. sucralfate 2022-0 Yes [id number] 1g Take 1 [facility] 1 gram 3-27 tablet by ity of tablet 00:00: mouth [place] 00 before Medical meals and Branch at bedtime. sucralfate 2022-0 Yes [id number] 1g Take 1 [facility] 1 gram 3-27 tablet by ity of tablet 00:00: mouth [place] 00 before Medical meals and Branch at bedtime. sucralfate 2022-0 Yes [id number] 1g Take 1 [facility] 1 gram 3-27 tablet by ity of tablet 00:00: mouth [place] 00 before Medical meals and Branch at bedtime. sucralfate 2022-0 Yes [id number] 1g Take 1 [facility] 1 gram 3-27 tablet by ity of tablet 00:00: mouth [place] 00 before Medical meals and Branch at bedtime. sucralfate 2022-0 Yes [id number] 1g Take 1 [facility] 1 gram 3-27 tablet by ity of tablet 00:00: mouth [place] 00 before Medical meals and Branch at bedtime. sucralfate 2022-0 Yes [id number] 1g Take 1 [facility] 1 gram 3-27 tablet by ity of tablet 00:00: mouth [place] 00 before Medical meals and Branch at bedtime. sucralfate 2022-0 Yes [id number] 1g Take 1 [facility] 1 gram 3-27 tablet by ity of tablet 00:00: mouth [place] 00 before Medical meals and Branch at bedtime. sucralfate 2022-0 Yes [id number] 1g Take 1 [facility] 1 gram 3-27 tablet by ity of tablet 00:00: mouth [place] 00 before Medical meals and Branch at bedtime. sucralfate 2021-0 Yes [id number] 1g Take 1 [facility] 1 gram 3-27 tablet by ity of tablet 00:00: mouth [place] 00 before Medical meals and Branch at bedtime. sucralfate 2-0 Yes [id number] 1g Take 1 [facility] 1 gram 3-27 tablet by ity of tablet 00:00: mouth [place] 00 before Medical meals and Branch at bedtime. sucralfate 2021-0 Yes [id number] 1g Take 1 [facility] 1 gram 3-27 tablet by ity of tablet 00:00: mouth [place] 00 before Medical meals and Branch at bedtime. sucralfate 2021-0 Yes [id number] 1g Take 1 [facility] 1 gram 3-27 tablet by ity of tablet 00:00: mouth [place] 00 before Medical meals and Branch at bedtime. sucralfate 2021-0 Yes [id number] 1g Take 1 [facility] 1 gram 3-27 tablet by ity of tablet 00:00: mouth [place] 00 before Medical meals and Branch at bedtime. sucralfate 2021-0 Yes [id number] 1g Take 1 [facility] 1 gram 3-27 tablet by ity of tablet 00:00: mouth [place] 00 before Medical meals and Branch at bedtime. sucralfate 2021-0 Yes [id number] 1g Take 1 [facility] 1 gram 3-27 tablet by ity of tablet 00:00: mouth [place] 00 before Medical meals and Branch at bedtime. sucralfate 2021-0 Yes [id number] 1g Take 1 [facility] 1 gram 3-27 tablet by ity of tablet 00:00: mouth [place] 00 before Medical meals and Branch at bedtime. sucralfate 2021-0 Yes [id number] 1g Take 1 [facility] 1 gram 3-27 tablet by ity of tablet 00:00: mouth [place] 00 before Medical meals and Branch at bedtime. sucralfate 2021-0 Yes [id number] 1g Take 1 [facility] 1 gram 3-27 tablet by ity of tablet 00:00: mouth [place] 00 before Medical meals and Branch at bedtime. sucralfate 2-0 Yes [id number] 1g Take 1 [facility] 1 gram 3-27 tablet by ity of tablet 00:00: mouth [place] 00 before Medical meals and Branch at bedtime. sucralfate 2-0 Yes [id number] 1g Take 1 [facility] 1 gram 3-27 tablet by ity of tablet 00:00: mouth [place] 00 before Medical meals and Branch at bedtime. sucralfate 2022-0 Yes [id number] 1g Take 1 [facility] 1 gram 3-27 tablet by ity of tablet 00:00: mouth [place] 00 before Medical meals and Branch at bedtime. sucralfate 2022-0 Yes [id number] 1g Take 1 [facility] 1 gram 3-27 tablet by ity of tablet 00:00: mouth [place] 00 before Medical meals and Branch at bedtime. sucralfate 2-0 Yes [id number] 1g Take 1 [facility] 1 gram 3-27 tablet by ity of tablet 00:00: mouth [place] 00 before Medical meals and Branch at bedtime. sucralfate 2-0 Yes [id number] 1g Take 1 [facility] 1 gram 3-27 tablet by ity of tablet 00:00: mouth [place] 00 before Medical meals and Branch at bedtime. sucralfate 2021-0 Yes [id number] 1g Take 1 [facility] 1 gram 3-27 tablet by ity of tablet 00:00: mouth [place] 00 before Medical meals and Branch at bedtime. sucralfate 2021-0 Yes [id number] 1g Take 1 [facility] 1 gram 3-27 tablet by ity of tablet 00:00: mouth [place] 00 before Medical meals and Branch at bedtime. sucralfate 2-0 Yes [id number] 1g Take 1 [facility] 1 gram 3-27 tablet by ity of tablet 00:00: mouth [place] 00 before Medical meals and Branch at bedtime. sucralfate 2021-0 Yes [id number] 1g Take 1 [facility] 1 gram 3-27 tablet by ity of tablet 00:00: mouth [place] 00 before Medical meals and Branch at bedtime. sucralfate 2022-0 Yes [id number] 1g Take 1 [facility] 1 gram 3-27 tablet by ity of tablet 00:00: mouth [place] 00 before Medical meals and Branch at bedtime. sucralfate 2022-0 Yes [id number] 1g Take 1 [facility] 1 gram 3-27 tablet by ity of tablet 00:00: mouth [place] 00 before Medical meals and Branch at bedtime. sucralfate 2022-0 Yes [id number] 1g Take 1 [facility] 1 gram 3-27 tablet by ity of tablet 00:00: mouth [place] 00 before Medical meals and Branch at bedtime. sucralfate 2022-0 Yes [id number] 1g Take 1 [facility] 1 gram 3-27 tablet by ity of tablet 00:00: mouth [place] 00 before Medical meals and Branch at bedtime. sucralfate 2022-0 Yes [id number] 1g Take 1 [facility] 1 gram 3-27 tablet by ity of tablet 00:00: mouth [place] 00 before Medical meals and Branch at bedtime. sucralfate 2022-0 Yes [id number] 1g Take 1 [facility] 1 gram 3-27 tablet by ity of tablet 00:00: mouth [place] 00 before Medical meals and Branch at bedtime. sucralfate 2022-0 Yes [id number] 1g Take 1 [facility] 1 gram 3-27 tablet by ity of tablet 00:00: mouth [place] 00 before Medical meals and Branch at bedtime. sucralfate 2022-0 Yes [id number] 1g Take 1 [facility] 1 gram 3-27 tablet by ity of tablet 00:00: mouth [place] 00 before Medical meals and Branch at bedtime. sucralfate 2022-0 Yes [id number] 1g Take 1 [facility] 1 gram 3-27 tablet by ity of tablet 00:00: mouth [place] 00 before Medical meals and Branch at bedtime. sucralfate 2022-0 Yes [id number] 1g Take 1 [facility] 1 gram 3-27 tablet by ity of tablet 00:00: mouth [place] 00 before Medical meals and Branch at bedtime. sucralfate 2022-0 Yes [id number] 1g Take 1 [facility] 1 gram 3-27 tablet by ity of tablet 00:00: mouth [place] 00 before Medical meals and Branch at bedtime. sucralfate 2022-0 Yes [id number] 1g Take 1 [facility] 1 gram 3-27 tablet by ity of tablet 00:00: mouth [place] 00 before Medical meals and Branch at bedtime. sucralfate 2022-0 Yes [id number] 1g Take 1 [facility] 1 gram 3-27 tablet by ity of tablet 00:00: mouth [place] 00 before Medical meals and Branch at bedtime. sucralfate 2022-0 Yes [id number] 1g Take 1 [facility] 1 gram 3-27 [...] needed for Anxiety. hydrALAZINE 0 Yes 10mg Q.[id number] Take [address] [facility] (APRESOLINE 3-11 [id number] by mouth [facility] ) 10 MG [...] 02 Center tablet gabapentin 2021-0 Yes 100mg Q.[id number] Take [address] [facility] (NEURONTIN) 3-11 [id number] mg by L [facility] 100 MG 14:10: [...] needed for Anxiety. hydrALAZINE 2021-0 Yes 10mg Q.[id number] Take [address] [facility] (APRESOLINE 3-11 [id number] by [facility] ) 10 MG [...] 02 Center tablet gabapentin 2021-0 Yes 100mg Q.[id number] Take [address] [facility] (NEURONTIN) 3-11 [id number] mg by L [facility] 100 MG 14:10: [...] needed for Anxiety. hydrALAZINE 0 Yes 10mg Q.[id number] Take [address] [facility] (APRESOLINE 3-11 [id number] by mouth [facility] ) 10 MG [...] 02 Center tablet gabapentin 2021-0 Yes 100mg Q.[id number] Take [address] [facility] (NEURONTIN) 3-11 [id number] mg by L [facility] 100 MG 14:10: [...] needed for Anxiety. hydrALAZINE 2021-0 Yes 10mg Q.[id number] Take [address] [facility] (APRESOLINE 3-11 [id number] by mouth [facility] ) 10 MG [...] 02 Center tablet gabapentin 0 Yes 100mg Q.[id number] Take [address] [facility] (NEURONTIN) 3-11 [id number] mg by L [facility] 100 MG 14:10: [...] needed for Anxiety. hydrALAZINE 0 Yes 10mg Q.[id number] Take [address] [facility] (APRESOLINE 3-11 [id number] by [facility] ) 10 MG [...] 02 Center tablet gabapentin 2021-0 Yes 100mg Q.[id number] Take [address] [facility] (NEURONTIN) 3-11 [id number] mg by L [facility] 100 MG 14:10: [...] needed for Anxiety. hydrALAZINE 0 Yes 10mg Q.[id number] Take [address] [facility] (APRESOLINE 3-11 [id number] by [facility] ) 10 MG [...] 02 Center tablet gabapentin 0 Yes 100mg Q.[id number] Take [address] [facility] (NEURONTIN) 3-11 [id number] mg by L [facility] 100 MG 14:10: [...] needed for Anxiety. hydrALAZINE 0 Yes 10mg Q.[id number] Take [address] [facility] (APRESOLINE 3-11 [id number] by mouth [facility] ) 10 MG [...] 02 Center tablet gabapentin 2021-0 Yes 100mg Q.[id number] Take [address] [facility] (NEURONTIN) 3-11 [id number] mg by L [facility] 100 MG 14:10: [...] needed for Anxiety. hydrALAZINE 0 Yes 10mg Q.[id number] Take [address] [facility] (APRESOLINE 3-11 [id number] by [facility] ) 10 MG [...] 02 Center tablet gabapentin 0 Yes 100mg Q.[id number] Take [address] [facility] (NEURONTIN) 3-11 [id number] mg by L [facility] 100 MG 14:10: [...] needed for Anxiety. hydrALAZINE 2021-0 Yes 10mg Q.[id number] Take [address] [facility] (APRESOLINE 3-11 [id number] by [facility] ) 10 MG [...] 02 Center tablet gabapentin 2021-0 Yes 100mg Q.[id number] Take [address] [facility] (NEURONTIN) 3-11 [id number] mg by L [facility] 100 MG 14:10: [...] needed for Anxiety. hydrALAZINE 2021-0 Yes 10mg Q.[id number] Take [address] [facility] (APRESOLINE 3-11 [id number] by [facility] ) 10 MG [...] 02 Center tablet gabapentin 2021-0 Yes 100mg Q.[id number] Take [address] [facility] (NEURONTIN) 3-11 [id number] mg by L [facility] 100 MG 14:10: [...] needed for Anxiety. hydrALAZINE 2021-0 Yes 10mg Q.[id number] Take [address] [facility] (APRESOLINE 3-11 [id number] by [facility] ) 10 MG [...] 02 [facility] tablet gabapentin 2021-0 Yes 100mg Q.[id number] Take [address] [facility] (NEURONTIN) 3-11 [id number] mg by L [facility] 100 MG 14:10: [...] needed for Anxiety. hydrALAZINE 2021-0 Yes 10mg Q.[id number] Take [address] [facility] (APRESOLINE 3-11 [id number] by [facility] ) 10 MG [...] 02 Center tablet gabapentin 2021-0 Yes 100mg Q.[id number] Take [address] [facility] (NEURONTIN) 3-11 [id number] mg by L [facility] 100 MG 14:10: [...] needed for Anxiety. hydrALAZINE 0 Yes 10mg Q.[id number] Take [address] [facility] (APRESOLINE 3-11 [id number] by [facility] ) 10 MG [...] 02 Center tablet gabapentin 2021-0 Yes 100mg Q.[id number] Take [address] [facility] (NEURONTIN) 3-11 [id number] mg by L [facility] 100 MG 14:10: [...] needed for Anxiety. hydrALAZINE 2021-0 Yes 10mg Q.[id number] Take [address] [facility] (APRESOLINE 3-11 [id number] by [facility] ) 10 MG [...] 02 Center tablet gabapentin 2021-0 Yes 100mg Q.[id number] Take [address] [facility] (NEURONTIN) 3-11 [id number] mg by L [facility] 100 MG 14:10: [...] needed for Anxiety. hydrALAZINE 0 Yes 10mg Q.[id number] Take [address] [facility] (APRESOLINE 3-11 [id number] by [facility] 10 [facility] [...] 02 Center tablet gabapentin 0 Yes 100mg Q.[id number] Take [address] [facility] (NEURONTIN) 3-11 [id number] mg by [facility] 100 MG 14:10: [...] needed for Anxiety. hydrALAZINE 2021-0 Yes 10mg Q.[id number] Take [address] [facility] (APRESOLINE 3-11 [id number] by [facility] ) 10 MG [...] 02 Center tablet gabapentin 0 Yes 100mg Q.45904096 Take [address] [facility] (NEURONTIN) 3-11 [id number] mg by [facility] 100 MG 14:10: [...] as needed for Anxiety. hydrALAZINE Yes 10mg Q.[id number] Take [address] [facility] (APRESOLINE 3-11 [id number] by [facility] ) 10 MG [...] MG 02 Center tablet gabapentin Yes 100mg Q.[id number] Take [address] [facility] (NEURONTIN) 3-11 [id number] mg by [facility] 100 MG 14:10: [...] needed for Anxiety. hydrALAZINE 2021-0 Yes 10mg Q.[id number] Take [address] [facility] (APRESOLINE 3-11 [id number] by [facility] ) 10 MG [...] 02 Center tablet gabapentin 0 Yes 100mg Q.[id number] Take [address] [facility] (NEURONTIN) 3-11 [id number] mg by [facility] 100 MG 14:10: [...] 24 02 daily. Center hr tablet lisinopriL 2022-0 Yes 40mg QD Take 40 mg C [...] as needed for Anxiety. hydrALAZINE Yes 10mg Q.77771061 Take [address] [facility] (APRESOLINE 3-11 [id number] by [facility] ) 10 MG [...] MG 02 Center tablet gabapentin Yes 100mg Q.[id number] Take [address] [facility] (NEURONTIN) 3-11 [id number] mg by [facility] 100 MG 14:10: [...] needed for Anxiety. hydrALAZINE 2021-0 Yes 10mg Q.06155328 Take [address] [facility] (APRESOLINE 3-11 [id number] by [facility] ) 10 MG [...] 02 Center tablet gabapentin 0 Yes 100mg Q.06030664 Take [address] [facility] (NEURONTIN) 3-11 [id number] mg by [facility] 100 MG 14:10: [...] No TAKE 1 [facility] ers TARTRATE 2-14 06- TABLET BY ity o f 100 mg 00:00: 00:00 MOUTH [place] tablet 00 :00 TWICE Medical DAILY Branch HYDROCHLORO 2021-0 Yes [id number] 12.5mg TAKE 1 [facility] THIAZIDE 1-19 CAPSULE BY ity o f 12.5 mg 00:00: MOUTH [place] capsule 00 DAILY Medical Branch HYDROCHLORO 2021-0 Yes [id number] 12.5mg TAKE 1 [facility] THIAZIDE 1-19 CAPSULE BY ity o f 12.5 mg 00:00: MOUTH [place] capsule 00 DAILY Medical Branch HYDROCHLORO 2021-0 Yes [id number] 12.5mg TAKE 1 [facility] THIAZIDE 1-19 CAPSULE BY ity o f 12.5 mg 00:00: MOUTH [place] capsule 00 DAILY Medical Branch HYDROCHLORO 2021-0 Yes [id number] 12.5mg TAKE 1 [facility] THIAZIDE 1-19 CAPSULE BY ity o f 12.5 mg 00:00: MOUTH [place] capsule 00 DAILY Medical Branch HYDROCHLORO 2021-0 2- No [id number] 12.5mg TAKE 1 [facility] THIAZIDE 1-19 07-18 [...] NEEDED FOR CHEST PAIN. DICLOFENAC 2020-11 Yes [id number] APPLY TO [facility] SODIUM 1 % 2-02 THE ity of gel 00:00: AFFECTED [place] 00 AREA FOUR Medical TIMES Branch DAILY DICLOFENAC 2020-11 Yes [id number] APPLY TO [facility] SODIUM 1 % 2-02 THE ity of gel 00:00: AFFECTED [place] 00 AREA FOUR Medical TIMES Branch DAILY DICLOFENAC 2020-11 Yes [id number] APPLY TO [facility] SODIUM 1 % 2-02 THE ity of gel 00:00: AFFECTED [place] 00 AREA FOUR Medical TIMES Branch DAILY DICLOFENAC 2020-11 Yes [id number] APPLY TO [facility] SODIUM 1 % 2-02 THE ity of gel 00:00: AFFECTED [place] 00 AREA FOUR Medical TIMES Branch DAILY DICLOFENAC 2020-11 Yes [id number] APPLY TO [facility] SODIUM 1 % 2-02 THE ity of gel 00:00: AFFECTED [place] 00 AREA FOUR Medical TIMES Branch DAILY DICLOFENAC 2020-11 Yes [id number] APPLY TO [facility] SODIUM 1 % 2-02 THE ity of gel 00:00: AFFECTED [place] 00 AREA FOUR Medical TIMES Branch DAILY DICLOFENAC 2020-11 Yes [id number] APPLY TO [facility] SODIUM 1 % 2-02 THE ity of gel 00:00: AFFECTED [place] 00 AREA FOUR Medical TIMES Branch DAILY DICLOFENAC 2020-11 Yes [id number] APPLY TO [facility] SODIUM 1 % 2-02 THE ity of gel 00:00: AFFECTED [place] 00 AREA FOUR Medical TIMES Branch DAILY DICLOFENAC 2020-11 Yes [id number] APPLY TO [facility] SODIUM 1 % 2-02 THE ity of gel 00:00: AFFECTED [place] 00 AREA FOUR Medical TIMES Branch DAILY DICLOFENAC 2020-11 Yes [id number] APPLY TO [facility] SODIUM 1 % 2-02 THE ity of gel 00:00: AFFECTED [place] 00 AREA FOUR Medical TIMES Branch DAILY DICLOFENAC 2020-11 Yes [id number] APPLY TO [facility] SODIUM 1 % 2-02 THE ity of gel 00:00: AFFECTED [place] 00 AREA FOUR Medical TIMES Branch DAILY DICLOFENAC 2020-11 Yes [id number] APPLY TO [facility] SODIUM 1 % 2-02 THE ity of gel 00:00: AFFECTED [place] 00 AREA FOUR Medical TIMES Branch DAILY DICLOFENAC 2020-11 Yes [id number] APPLY TO [facility] SODIUM 1 % 2-02 THE ity of gel 00:00: AFFECTED [place] 00 AREA FOUR Medical TIMES Branch DAILY DICLOFENAC 2020-11 Yes [id number] APPLY TO [facility] SODIUM 1 % 2-02 THE ity of gel 00:00: AFFECTED [place] 00 AREA FOUR Medical TIMES Branch DAILY DICLOFENAC 2020-11 Yes [id number] APPLY TO [facility] SODIUM 1 % 2-02 THE ity of gel 00:00: AFFECTED [place] 00 AREA FOUR Medical TIMES Branch DAILY DICLOFENAC 2020-11 Yes [id number] APPLY TO [facility] SODIUM 1 % 2-02 THE ity of gel 00:00: AFFECTED [place] 00 AREA FOUR Medical TIMES Branch DAILY DICLOFENAC 2020-11 Yes [id number] APPLY TO [facility] SODIUM 1 % 2-02 THE ity of gel 00:00: AFFECTED [place] 00 AREA FOUR Medical TIMES Branch DAILY DICLOFENAC 2020-11 Yes [id number] APPLY TO [facility] SODIUM 1 % 2-02 THE ity of gel 00:00: AFFECTED [place] 00 AREA [facility] Medical TIMES Branch DAILY DICLOFENAC 2020-11 Yes [id number] APPLY TO Univers SODIUM 1 % 2-02 THE ity of gel 00:00: AFFECTED [place] 00 AREA [facility] Medical TIMES Branch DAILY DICLOFENAC 2020-11 Yes [id number] APPLY TO [facility] SODIUM 1 % 2-02 THE ity of gel 00:00: AFFECTED [place] 00 AREA FOUR Medical TIMES Branch DAILY DICLOFENAC 2020-11 Yes [id number] APPLY TO [facility] SODIUM 1 % 2-02 THE ity of gel 00:00: AFFECTED [place] 00 AREA FOUR Medical TIMES Branch DAILY DICLOFENAC 2020-11 Yes [id number] APPLY TO [facility] SODIUM 1 % 2-02 THE ity of gel 00:00: AFFECTED [place] 00 AREA FOUR Medical TIMES Branch DAILY DICLOFENAC 2020-11- No [id number] APPLY TO [facility] SODIUM 1 % 2-02 10-25 THE ity of gel 00:00: 00:00 AFFECTED [place] 00 :00 AREA FOUR Medical TIMES Branch DAILY DICLOFENAC 2020-11- No [id number] APPLY TO [facility] SODIUM 1 % 2-02 10-25 THE ity of gel 00:00: 00:00 AFFECTED [place] 00 :00 AREA FOUR Medical TIMES Branch DAILY colchicine 2020-11 Yes [id number] .6mg Take 1 U nivers 0.6 mg 0-07 tablet by ity of tablet 00:00: mouth [place] 00 daily. Medical Branch colchicine 2020-11 Yes [id number] .6mg Take 1 U nivers 0.6 mg 0-07 tablet by ity of tablet 00:00: mouth [place] 00 daily. Medical Branch colchicine 2020-11 Yes [id number] .6mg Take 1 U nivers 0.6 mg 0-07 tablet by ity of tablet 00:00: mouth [place] 00 daily. Medical Branch colchicine 2020-11 Yes [id number] .6mg Take 1 U nivers 0.6 mg 0-07 tablet by ity of tablet 00:00: mouth [place] 00 daily. Medical Branch colchicine 2020-11 Yes [id number] .6mg Take 1 U nivers 0.6 mg 0-07 tablet by ity of tablet 00:00: mouth [place] 00 daily. Medical Branch colchicine 2020-11 Yes [id number] .6mg Take 1 U nivers 0.6 mg 0-07 tablet by ity of tablet 00:00: mouth [place] 00 daily. Medical Branch colchicine 2020-11 Yes [id number] .6mg Take 1 U nivers 0.6 mg 0-07 tablet by ity of tablet 00:00: mouth [place] 00 daily. Medical Branch colchicine 2020-11 Yes [id number] .6mg Take 1 U nivers 0.6 mg 0-07 tablet by ity of tablet 00:00: mouth [place] 00 daily. Medical Branch colchicine 2020-11 Yes [id number] .6mg Take 1 U nivers 0.6 mg 0-07 tablet by ity of tablet 00:00: mouth [place] 00 daily. Medical Branch colchicine 2020-11 Yes [id number] .6mg Take 1 U nivers 0.6 mg 0-07 tablet by ity of tablet 00:00: mouth [place] 00 daily. Medical Branch colchicine 2020-11 Yes [id number] .6mg Take 1 U nivers 0.6 mg 0-07 tablet by ity of tablet 00:00: mouth [place] 00 daily. Medical Branch colchicine 2020-11 Yes [id number] .6mg Take 1 U nivers 0.6 mg 0-07 tablet by ity of tablet 00:00: mouth [place] 00 daily. Medical Branch colchicine 2020-11 Yes [id number] .6mg Take 1 U nivers 0.6 mg 0-07 tablet by ity of tablet 00:00: mouth [place] 00 daily. Medical Branch colchicine 2020-11- No [id number] .6mg Take 1 [facility] 0.6 mg 0-07 09-19 tablet by ity of tablet 00:00: 00:00 mouth [place] 00 :00 daily. Medical Branch TRUEPLUS 2021-0 Yes USE TWICE [...] [place] x 5/16 Syrg Medical Branch TRUEPLUS 1-0 Yes USE [...] by mouth ity of tablet 09:38: at [place] [address] bedtime. [facility] mesalamine 2020-0 Yes 1.5g Take 1.5 g U nivers 0.375 gram 7-14 by mouth ity o f 24 hr 09:38: daily. [place] capsule 49 [facility] mirtazapine 2020-0 Yes 15mg Take 15 mg [facility] 15 mg 7-14 by mouth ity of tablet 09:38: at [place] [address] bedtime. [facility] mesalamine 2020-0 Yes 1.5g Take 1.5 g U nivers 0.375 gram 7-14 by mouth ity o f 24 hr 09:38: daily. [facility] 49 [facility] mirtazapine 2020-0 Yes 15mg Take 15 mg [facility] 15 mg 7-14 by mouth ity of tablet 09:38: at [place] [address] bedtime. [facility] mesalamine 2020-0 Yes 1.5g Take 1.5 g U nivers 0.375 gram 7-14 by mouth ity o f 24 hr 09:38: daily. [place] capsule 49 [facility] mirtazapine 2020-0 Yes 15mg Take 15 mg [facility] 15 mg 7-14 by mouth ity of tablet 09:38: at [place] [address] bedtime. Medical Branch mesalamine 2020-0 Yes 1.5g Take 1.5 g U nivers 0.375 gram 7-14 by mouth ity o f 24 hr 09:38: daily. [place] capsule 49 Medical Branch mirtazapine 2020-0 Yes 15mg Take 15 mg [facility] 15 mg 7-14 by mouth ity of tablet 09:38: at [place] [address] bedtime. Medical Branch mesalamine 2020-0 Yes 1.5g Take 1.5 g U nivers 0.375 gram 7-14 by mouth ity o f 24 hr 09:38: daily. [place] capsule 49 Medical Branch mirtazapine 2020-0 Yes 15mg Take 15 mg [facility] 15 mg 7-14 by mouth ity of tablet 09:38: at [place] [address] bedtime. Medical Branch mesalamine 2020-0 Yes 1.5g Take 1.5 g U nivers 0.375 gram 7-14 by mouth ity o f 24 hr 09:38: daily. [place] capsule 49 Medical Branch mirtazapine 2020-0 Yes 15mg Take 15 mg [facility] 15 mg 7-14 by mouth ity of tablet 09:38: at [place] [address] bedtime. Medical Branch mesalamine 2020-0 Yes 1.5g Take 1.5 g U nivers 0.375 gram 7-14 by mouth ity o f 24 hr 09:38: daily. [place] capsule 49 Medical Branch mirtazapine 2020-0 Yes 15mg Take 15 mg [facility] 15 mg 7-14 by mouth ity of tablet 09:38: at [place] [address] bedtime. Medical Branch mesalamine 2020-0 Yes 1.5g Take 1.5 g U nivers 0.375 gram 7-14 by mouth ity o f 24 hr 09:38: daily. [place] capsule 49 Medical Branch mirtazapine 2020-0 Yes 15mg Take 15 mg [facility] 15 mg 7-14 by mouth ity of tablet 09:38: at [place] [address] bedtime. Medical Branch mesalamine 2020-0 Yes 1.5g Take 1.5 g U nivers 0.375 gram 7-14 by mouth ity o f 24 hr 09:38: daily. [place] capsule 49 Medical Branch mirtazapine 2020-0 Yes 15mg Take 15 mg [facility] 15 mg 7-14 by mouth ity of tablet 09:38: at [place] [address] bedtime. Medical Branch mesalamine 2020-0 Yes 1.5g Take 1.5 g U nivers 0.375 gram 7-14 by mouth ity o f 24 hr 09:38: daily. [place] capsule 49 Medical Branch mirtazapine 2020-0 Yes 15mg Take 15 mg [facility] 15 mg 7-14 by mouth ity of tablet 09:38: at [place] [address] bedtime. Medical Branch mesalamine 2020-0 Yes 1.5g Take 1.5 g U nivers 0.375 gram 7-14 by mouth ity o f 24 hr 09:38: daily. [place] capsule 49 Medical Branch mirtazapine 2020-0 Yes 15mg Take 15 mg [facility] 15 mg 7-14 by mouth ity of tablet 09:38: at [place] [address] bedtime. Medical Branch mesalamine 2020-0 Yes 1.5g Take 1.5 g U nivers 0.375 gram 7-14 by mouth ity o f 24 hr 09:38: daily. [facility] 49 Medical Branch mirtazapine 2020-0 Yes 15mg Take 15 mg [facility] 15 mg 7-14 by mouth ity of tablet 09:38: at [place] [address] bedtime. Medical Branch mesalamine 2020-0 Yes 1.5g Take 1.5 g U nivers 0.375 gram 7-14 by mouth ity o f 24 hr 09:38: daily. [facility] 49 Medical Branch mirtazapine 2020-0 Yes 15mg Take 15 mg [facility] 15 mg 7-14 by mouth ity of tablet 09:38: at [place] [address] bedtime. Medical Branch mesalamine 2020-0 Yes 1.5g Take 1.5 g U nivers 0.375 gram 7-14 by mouth ity o f 24 hr 09:38: daily. [facility] 49 Medical Branch mirtazapine 2020-0 Yes 15mg Take 15 mg [facility] 15 mg 7-14 by mouth ity of tablet 09:38: at [place] [address] bedtime. Medical Branch mesalamine 2020-0 Yes 1.5g Take 1.5 g U nivers 0.375 gram 7-14 by mouth ity o f 24 hr 09:38: daily. [place] capsule 49 Medical Branch mirtazapine 2020-0 Yes 15mg Take 15 mg [facility] 15 mg 7-14 by mouth ity of tablet 09:38: at [place] [address] bedtime. Medical Branch mesalamine 2021-0 Yes 1.5g Take 1.5 g U nivers 0.375 gram 7-14 by mouth ity o f 24 hr 09:38: daily. [place] capsule 49 Medical Branch mirtazapine 2020-0 Yes 15mg Take 15 mg [facility] 15 mg 7-14 by mouth ity of tablet 09:38: at [place] [address] bedtime. Medical Branch mesalamine 2020-0 Yes 1.5g Take 1.5 g U nivers 0.375 gram 7-14 by mouth ity o f 24 hr 09:38: daily. [place] capsule 49 Medical Branch mirtazapine 2020-0 Yes 15mg Take 15 mg [facility] 15 mg 7-14 by mouth ity of tablet 09:38: at [place] [address] bedtime. Medical Branch mesalamine 2020-0 Yes 1.5g Take 1.5 g U nivers 0.375 gram 7-14 by mouth ity o f 24 hr 09:38: daily. [place] capsule 49 Medical Branch mirtazapine 2020-0 Yes 15mg Take 15 mg [facility] 15 mg 7-14 by mouth ity of tablet 09:38: at [place] [address] bedtime. Medical Branch mesalamine 2020-0 Yes 1.5g Take 1.5 g U nivers 0.375 gram 7-14 by mouth ity o f 24 hr 09:38: daily. [place] capsule 49 Medical Branch mirtazapine 2020-0 Yes 15mg Take 15 mg [facility] 15 mg 7-14 by mouth ity of tablet 09:38: at [place] [address] bedtime. Medical [place] mesalamine 2020-0 Yes 1.5g Take 1.5 g U nivers 0.375 gram 7-14 by mouth ity o f 24 hr 09:38: daily. [place] capsule 49 Medical Branch mirtazapine 2020-0 Yes 15mg Take 15 mg [facility] 15 mg 7-14 by mouth ity of tablet 09:38: at [place] [address] bedtime. Medical Branch mesalamine 2020-0 Yes 1.5g Take 1.5 g U nivers 0.375 gram 7-14 by mouth ity o f 24 hr 09:38: daily. [place] capsule 49 Medical Branch mirtazapine 2020-0 Yes 15mg Take 15 mg [facility] 15 mg 7-14 by mouth ity of tablet 09:38: at [place] [address] bedtime. Medical Branch mesalamine 2020-0 Yes 1.5g Take 1.5 g U nivers 0.375 gram 7-14 by mouth ity o f 24 hr 09:38: daily. [place] capsule 49 Medical Branch mirtazapine 2020-0 Yes 15mg Take 15 mg [facility] 15 mg 7-14 by mouth ity of tablet 09:38: at [place] [address] bedtime. Medical Branch mesalamine 2020-0 Yes 1.5g Take 1.5 g U nivers 0.375 gram 7-14 by mouth ity o f 24 hr 09:38: daily. [place] capsule 49 Medical Branch mirtazapine 2020-0 Yes 15mg Take 15 mg [facility] 15 mg 7-14 by mouth ity of tablet 09:38: at [place] [address] bedtime. Medical Branch mesalamine 2020-0 Yes 1.5g Take 1.5 g U nivers 0.375 gram 7-14 by mouth ity o f 24 hr 09:38: daily. [place] capsule 49 Medical Branch mirtazapine 2020-0 Yes 15mg Take 15 mg [facility] 15 mg 7-14 by mouth ity of tablet 09:38: at [place] [address] bedtime. Medical Branch mesalamine 2020-0 Yes 1.5g Take 1.5 g U nivers 0.375 gram 7-14 by mouth ity o f 24 hr 09:38: daily. [place] capsule 49 Medical Branch mirtazapine 2020-0 Yes 15mg Take 15 mg [facility] 15 mg 7-14 by mouth ity of tablet 09:38: at [place] [address] bedtime. Medical Branch mesalamine 2020-0 Yes 1.5g Take 1.5 g U nivers 0.375 gram 7-14 by mouth ity o f 24 hr 09:38: daily. [place] capsule 49 Medical Branch mirtazapine 2020-0 Yes 15mg Take 15 mg [facility] 15 mg 7-14 by mouth ity of tablet 09:38: at [place] [address] bedtime. Medical Branch mesalamine 2020-0 Yes 1.5g Take 1.5 g U nivers 0.375 gram 7-14 by mouth ity o f 24 hr 09:38: daily. [place] capsule 49 Medical Branch mirtazapine 2020-0 Yes 15mg Take 15 mg [facility] 15 mg 7-14 by mouth ity of tablet 09:38: at [place] [address] bedtime. Medical Branch mesalamine 2020-0 Yes 1.5g Take 1.5 g U nivers 0.375 gram 7-14 by mouth ity o f 24 hr 09:38: daily. [place] capsule 49 Medical Branch mirtazapine 2020-0 Yes 15mg Take 15 mg [facility] 15 mg 7-14 by mouth ity of tablet 09:38: at [place] [address] bedtime. Medical Branch mesalamine 2020-0 Yes 1.5g Take 1.5 g U nivers 0.375 gram 7-14 by mouth ity o f 24 hr 09:38: daily. [place] capsule 49 Medical Branch mirtazapine 2020-0 Yes 15mg Take 15 mg [facility] 15 mg 7-14 by mouth ity of tablet 09:38: at [place] [address] bedtime. Medical Branch mesalamine 2020-0 Yes 1.5g Take 1.5 g U nivers 0.375 gram 7-14 by mouth ity o f 24 hr 09:38: daily. [place] capsule 49 Medical Branch mirtazapine 2020-0 Yes 15mg Take 15 mg [facility] 15 mg 7-14 by mouth ity of tablet 09:38: at [place] [address] bedtime. Medical Branch mesalamine 2020-0 Yes 1.5g Take 1.5 g U nivers 0.375 gram 7-14 by mouth ity o f 24 hr 09:38: daily. [place] capsule 49 Medical Branch mirtazapine 2020-0 Yes 15mg Take 15 mg [facility] 15 mg 7-14 by mouth ity of tablet 09:38: at [place] [address] bedtime. Medical [place] mesalamine 2020-0 Yes 1.5g Take 1.5 g U nivers 0.375 gram 7-14 by mouth ity o f 24 hr 09:38: daily. [place] capsule 49 Medical Branch mirtazapine 2020-0 Yes 15mg Take 15 mg [facility] 15 mg 7-14 by mouth ity of tablet 09:38: at [place] [address] bedtime. Medical Branch mesalamine 2020-0 Yes 1.5g Take 1.5 g U nivers 0.375 gram 7-14 by mouth ity o f 24 hr 09:38: daily. [place] capsule 49 Medical Branch mirtazapine 2020-0 Yes 15mg Take 15 mg [facility] 15 mg 7-14 by mouth ity of tablet 09:38: at [place] [address] bedtime. Medical [place] mesalamine 2020-0 Yes 1.5g Take 1.5 g U nivers 0.375 gram 7-14 by mouth ity o f 24 hr 09:38: daily. [place] capsule 49 Medical Branch mirtazapine 2020-0 Yes 15mg Take 15 mg [facility] 15 mg 7-14 by mouth ity of tablet 09:38: at [place] [address] bedtime. Medical Branch mesalamine 2020-0 Yes 1.5g Take 1.5 g U nivers 0.375 gram 7-14 by mouth ity o f 24 hr 09:38: daily. [place] capsule 49 Medical Branch mirtazapine 2020-0 Yes 15mg Take 15 mg [facility] 15 mg 7-14 by mouth ity of tablet 09:38: at [place] [address] bedtime. Medical Branch mesalamine 2020-0 Yes 1.5g Take 1.5 g U nivers 0.375 gram 7-14 by mouth ity o f 24 hr 09:38: daily. [place] capsule 49 Medical Branch mirtazapine 2020-0 Yes 15mg Take 15 mg [facility] 15 mg 7-14 by mouth ity of tablet 09:38: at [place] [address] bedtime. Medical Branch mesalamine 2020-0 Yes 1.5g Take 1.5 g U nivers 0.375 gram 7-14 by mouth ity o f 24 hr 09:38: daily. [facility] 49 Medical Branch mirtazapine 2020-0 Yes 15mg Take 15 mg [facility] 15 mg 7-14 by mouth ity of tablet 09:38: at [place] [address] bedtime. Medical Branch mesalamine 2020-0 Yes 1.5g Take 1.5 g U nivers 0.375 gram 7-14 by mouth ity o f 24 hr 09:38: daily. [place] capsule 49 Medical Branch mirtazapine 2020-0 Yes 15mg Take 15 mg [facility] 15 mg 7-14 by mouth ity of tablet 09:38: at [place] [address] bedtime. Medical Branch mesalamine 2020-0 Yes 1.5g Take 1.5 g U nivers 0.375 gram 7-14 by mouth ity o f 24 hr 09:38: daily. [place] capsule 49 Medical Branch mirtazapine 2020-0 Yes 15mg Take 15 mg [facility] 15 mg 7-14 by mouth ity of tablet 09:38: at [place] [address] bedtime. Medical Branch mesalamine 2020-0 Yes 1.5g Take 1.5 g U nivers 0.375 gram 7-14 by mouth ity o f 24 hr 09:38: daily. [place] capsule 49 Medical Branch mirtazapine 2020-0 Yes 15mg Take 15 mg [facility] 15 mg 7-14 by mouth ity of tablet 09:38: at [place] [address] bedtime. Medical Branch mesalamine 2020-0 Yes 1.5g Take 1.5 g U nivers 0.375 gram 7-14 by mouth ity o f 24 hr 09:38: daily. [place] capsule 49 Medical Branch mirtazapine 2020-0 Yes 15mg Take 15 mg [facility] 15 mg 7-14 by mouth ity of tablet 09:38: at [place] [address] bedtime. Medical Branch mesalamine 2020-0 Yes 1.5g Take 1.5 g U nivers 0.375 gram 7-14 by mouth ity o f 24 hr 09:38: daily. [place] capsule 49 Medical Branch mirtazapine 2020-0 Yes 15mg Take 15 mg [facility] 15 mg 7-14 by mouth ity of tablet 09:38: at [place] [address] bedtime. Medical Branch mesalamine 2020-0 Yes 1.5g Take 1.5 g U nivers 0.375 gram 7-14 by mouth ity o f 24 hr 09:38: daily. [facility] 49 Medical Branch mirtazapine 2020-0 Yes 15mg Take 15 mg [facility] 15 mg 7-14 by mouth ity of tablet 09:38: at [place] [address] bedtime. Medical Branch mesalamine 2020-0 Yes 1.5g Take 1.5 g U nivers 0.375 gram 7-14 by mouth ity o f 24 hr 09:38: daily. [facility] 49 Medical Branch mirtazapine 2020-0 Yes 15mg Take 15 mg [facility] 15 mg 7-14 by mouth ity of tablet 09:38: at [place] [address] bedtime. Medical [place] mesalamine 2020-0 Yes 1.5g Take 1.5 g U nivers 0.375 gram 7-14 by mouth ity o f 24 hr 09:38: daily. [place] capsule 49 Medical [place] mirtazapine 2020-0 Yes 15mg Take 15 mg [facility] 15 mg 7-14 by mouth ity of tablet 09:38: at [place] [address] bedtime. Medical [place] mesalamine 2021-0 Yes 1.5g Take 1.5 g U nivers 0.375 gram 7-14 by mouth ity o f 24 hr 09:38: daily. [place] capsule 49 Medical Branch mirtazapine 2020-0 Yes 15mg Take 15 mg [facility] 15 mg 7-14 by mouth ity of tablet 09:38: at [place] [address] bedtime. Medical Branch mesalamine 2020-0 Yes 1.5g Take 1.5 g U nivers 0.375 gram 7-14 by mouth ity o f 24 hr 09:38: daily. [place] capsule 49 Medical Branch mirtazapine 2020-0 Yes 15mg Take 15 mg [facility] 15 mg 7-14 by mouth ity of tablet 09:38: at [place] [address] bedtime. Medical Branch mesalamine 2020-0 Yes 1.5g Take 1.5 g U nivers 0.375 gram 7-14 by mouth ity o f 24 hr 09:38: daily. [place] capsule 49 Medical Branch mirtazapine 2020-0 Yes 15mg Take 15 mg [facility] 15 mg 7-14 by mouth ity of tablet 09:38: at [place] [address] bedtime. Medical Branch mesalamine 2020-0 Yes 1.5g Take 1.5 g U nivers 0.375 gram 7-14 by mouth ity o f 24 hr 09:38: daily. [place] capsule 49 Medical Branch mirtazapine 2020-0 Yes 15mg Take 15 mg [facility] 15 mg 7-14 by mouth ity of tablet 09:38: at [place] [address] bedtime. Medical Branch mesalamine 2020-0 Yes 1.5g Take 1.5 g U nivers 0.375 gram 7-14 by mouth ity o f 24 hr 09:38: daily. [place] capsule 49 Medical Branch mirtazapine 2020-0 Yes 15mg Take 15 mg [facility] 15 mg 7-14 by mouth ity of tablet 09:38: at [place] [address] bedtime. Medical Branch mesalamine 2020-0 Yes 1.5g Take 1.5 g U nivers 0.375 gram 7-14 by mouth ity o f 24 hr 09:38: daily. [place] capsule 49 Medical Branch mirtazapine 2020-0 Yes 15mg Take 15 mg [facility] 15 mg 7-14 by mouth ity of tablet 09:38: at [place] [address] bedtime. Medical Branch mesalamine 2020-0 Yes 1.5g Take 1.5 g U nivers 0.375 gram 7-14 by mouth ity o f 24 hr 09:38: daily. [place] capsule 49 Medical Branch mirtazapine 2020-0 Yes 15mg Take 15 mg [facility] 15 mg 7-14 by mouth ity of tablet 09:38: at [place] [address] bedtime. Medical Branch mesalamine 2020-0 Yes 1.5g Take 1.5 g U nivers 0.375 gram 7-14 by mouth ity o f 24 hr 09:38: daily. [place] capsule 49 Medical Branch mirtazapine 2020-0 Yes 15mg Take 15 mg [facility] 15 mg 7-14 by mouth ity of tablet 09:38: at [place] [address] bedtime. Medical Branch mesalamine 2020-0 Yes 1.5g Take 1.5 g U nivers 0.375 gram 7-14 by mouth ity o f 24 hr 09:38: daily. [place] capsule 49 Medical Branch mirtazapine 2020-0 Yes 15mg Take 15 mg [facility] 15 mg 7-14 by mouth ity of tablet 09:38: at [place] [address] bedtime. Medical Branch mesalamine 2020-0 Yes 1.5g Take 1.5 g U nivers 0.375 gram 7-14 by mouth ity o f 24 hr 09:38: daily. [place] capsule 49 Medical Branch mirtazapine 2020-0 Yes 15mg Take 15 mg [facility] 15 mg 7-14 by mouth ity of tablet 09:38: at [place] [address] bedtime. Medical Branch mesalamine 2020-0 Yes 1.5g Take 1.5 g U nivers 0.375 gram 7-14 by mouth ity o f 24 hr 09:38: daily. [facility] 49 Medical Branch mirtazapine 2020-0 Yes 15mg Take 15 mg [facility] 15 mg 7-14 by mouth ity of tablet 09:38: at [place] [address] bedtime. Medical Branch mesalamine 2020-0 Yes 1.5g Take 1.5 g U nivers 0.375 gram 7-14 by mouth ity o f 24 hr 09:38: daily. [place] capsule 49 Medical Branch mirtazapine 2020-0 Yes 15mg Take 15 mg [facility] 15 mg 7-14 by mouth ity of tablet 09:38: at [place] [address] bedtime. Medical Branch mesalamine 2020-0 Yes 1.5g Take 1.5 g U nivers 0.375 gram 7-14 by mouth ity o f 24 hr 09:38: daily. [address] predniSONE 2021-0 Yes 10mg Take 10 mg U nivers 10 mg 6-22 by mouth ity of tablet 00:00: daily. [place] [facility] predniSONE 2021-0 Yes 10mg Take 10 mg U nivers 10 mg 6-22 by mouth ity of tablet 00:00: daily. [place] [facility] predniSONE 2021-0 Yes 10mg Take 10 mg U nivers 10 mg 6-22 by mouth ity of tablet 00:00: daily. [place] [facility] predniSONE 2021-0 Yes 10mg Take 10 mg U nivers 10 mg 6-22 by mouth ity of tablet 00:00: daily. [place] [facility] predniSONE 2021-0 Yes 10mg Take 10 mg U nivers 10 mg 6-22 by mouth ity of tablet 00:00: daily. [place] [facility] predniSONE 2021-0 Yes 10mg Take 10 mg U nivers 10 mg 6-22 by mouth ity of tablet 00:00: daily. [place] [facility] predniSONE 2021-0 Yes 10mg Take 10 mg U nivers 10 mg 6-22 by mouth ity of tablet 00:00: daily. [place] [facility] predniSONE 2021-0 Yes 10mg Take 10 mg U nivers 10 mg 6-22 by mouth ity of tablet 00:00: daily. [place] [facility] predniSONE 2021-0 Yes 10mg Take 10 mg U nivers 10 mg 6-22 by mouth ity of tablet 00:00: daily. [place] [facility] predniSONE 2021-0 Yes 10mg Take 10 mg U nivers 10 mg 6-22 by mouth ity of tablet 00:00: daily. [place] [facility] predniSONE 2021-0 Yes 10mg Take 10 mg U nivers 10 mg 6-22 by mouth ity of tablet 00:00: daily. [place] [facility] predniSONE 2021-0 Yes 10mg Take 10 mg U nivers 10 mg 6-22 by mouth ity of tablet 00:00: daily. [place] [facility] predniSONE 2021-0 Yes 10mg Take 10 mg U nivers 10 mg 6-22 by mouth ity of tablet 00:00: daily. [place] [facility] predniSONE 2021-0 Yes 10mg Take 10 mg U nivers 10 mg 6-22 by mouth ity of tablet 00:00: daily. [place] [facility] predniSONE 2021-0 Yes 10mg Take 10 mg U nivers 10 mg 6-22 by mouth ity of tablet 00:00: daily. [place] [facility] predniSONE 2021-0 Yes 10mg Take 10 mg U nivers 10 mg 6-22 by mouth ity of tablet 00:00: daily. [place] [facility] predniSONE 2021-0 Yes 10mg Take 10 mg U nivers 10 mg 6-22 by mouth ity of tablet 00:00: daily. [place] [facility] predniSONE 2021-0 Yes 10mg Take 10 mg U nivers 10 mg 6-22 by mouth ity of tablet 00:00: daily. [place] [facility] predniSONE 2021-0 Yes 10mg Take 10 mg U nivers 10 mg 6-22 by mouth ity of tablet 00:00: daily. [address] predniSONE 2021-0 Yes 10mg Take 10 mg U nivers 10 mg 6-22 by mouth ity of tablet 00:00: daily. [address] predniSONE 2021-0 Yes 10mg Take 10 mg U nivers 10 mg 6-22 by mouth ity of tablet 00:00: daily. [place] [facility] predniSONE 2021-0 Yes 10mg Take 10 mg U nivers 10 mg 6-22 by mouth ity of tablet 00:00: daily. [address] predniSONE 2021-0 Yes 10mg Take 10 mg U nivers 10 mg 6-22 by mouth ity of tablet 00:00: daily. [address] predniSONE 2021-0 Yes 10mg Take 10 mg U nivers 10 mg 6-22 by mouth ity of tablet 00:00: daily. [address] predniSONE 2021-0 Yes 10mg Take 10 mg U nivers 10 mg 6-22 by mouth ity of tablet 00:00: daily. [address] predniSONE 2021-0 Yes 10mg Take 10 mg U nivers 10 mg 6-22 by mouth ity of tablet 00:00: daily. [address] predniSONE 2021-0 Yes 10mg Take 10 mg U nivers 10 mg 6-22 by mouth ity of tablet 00:00: daily. [address] predniSONE 2021-0 Yes 10mg Take 10 mg U nivers 10 mg 6-22 by mouth ity of tablet 00:00: daily. [place] [facility] predniSONE 2021-0 Yes 10mg Take 10 mg U nivers 10 mg 6-22 by mouth ity of tablet 00:00: daily. [place] [facility] predniSONE 2021-0 Yes 10mg Take 10 mg U nivers 10 mg 6-22 by mouth ity of tablet 00:00: daily. [place] [facility] predniSONE 2021-0 Yes 10mg Take 10 mg U nivers 10 mg 6-22 by mouth ity of tablet 00:00: daily. [place] [facility] predniSONE 2021-0 Yes 10mg Take 10 mg U nivers 10 mg 6-22 by mouth ity of tablet 00:00: daily. [place] [facility] predniSONE 2021-0 Yes 10mg Take 10 mg U nivers 10 mg 6-22 by mouth ity of tablet 00:00: daily. [place] [facility] predniSONE 2021-0 Yes 10mg Take 10 mg U nivers 10 mg 6-22 by mouth ity of tablet 00:00: daily. [place] [facility] predniSONE 2021-0 Yes 10mg Take 10 mg U nivers 10 mg 6-22 by mouth ity of tablet 00:00: daily. [place] [facility] predniSONE 2021-0 Yes 10mg Take 10 mg U nivers 10 mg 6-22 by mouth ity of tablet 00:00: daily. [place] [facility] predniSONE 2021-0 Yes 10mg Take 10 mg U nivers 10 mg 6-22 by mouth ity of tablet 00:00: daily. [place] [facility] predniSONE 2021-0 Yes 10mg Take 10 mg U nivers 10 mg 6-22 by mouth ity of tablet 00:00: daily. [place] [facility] predniSONE 2021-0 Yes 10mg Take 10 mg U nivers 10 mg 6-22 by mouth ity of tablet 00:00: daily. [address] predniSONE 2021-0 Yes 10mg Take 10 mg U nivers 10 mg 6-22 by mouth ity of tablet 00:00: daily. [address] predniSONE 2021-0 Yes 10mg Take 10 mg U nivers 10 mg 6-22 by mouth ity of tablet 00:00: daily. [address] predniSONE 2021-0 Yes 10mg Take 10 mg U nivers 10 mg 6-22 by mouth ity of tablet 00:00: daily. [address] predniSONE 2021-0 Yes 10mg Take 10 mg U nivers 10 mg 6-22 by mouth ity of tablet 00:00: daily. [place] [facility] predniSONE 2021-0 Yes 10mg Take 10 mg U nivers 10 mg 6-22 by mouth ity of tablet 00:00: daily. [place] [facility] predniSONE 2021-0 Yes 10mg Take 10 mg U nivers 10 mg 6-22 by mouth ity of tablet 00:00: daily. [place] [facility] predniSONE 2021-0 Yes 10mg Take 10 mg U nivers 10 mg 6-22 by mouth ity of tablet 00:00: daily. [place] [facility] predniSONE 2021-0 Yes 10mg Take 10 mg U nivers 10 mg 6-22 by mouth ity of tablet 00:00: daily. [address] predniSONE 2021-0 Yes 10mg Take 10 mg U nivers 10 mg 6-22 by mouth ity of tablet 00:00: daily. [address] predniSONE 2021-0 Yes 10mg Take 10 mg U nivers 10 mg 6-22 by mouth ity of tablet 00:00: daily. [place] [facility] predniSONE 2021-0 Yes 10mg Take 10 mg U nivers 10 mg 6-22 by mouth ity of tablet 00:00: daily. [place] [facility] predniSONE 2021-0 Yes 10mg Take 10 mg U nivers 10 mg 6-22 by mouth ity of tablet 00:00: daily. [address] predniSONE 2021-0 Yes 10mg Take 10 mg U nivers 10 mg 6-22 by mouth ity of tablet 00:00: daily. [address] predniSONE 2021-0 Yes 10mg Take 10 mg U nivers 10 mg 6-22 by mouth ity of tablet 00:00: daily. [address] predniSONE 2021-0 Yes 10mg Take 10 mg U nivers 10 mg 6-22 by mouth ity of tablet 00:00: daily. [address] predniSONE 2021-0 Yes 10mg Take 10 mg U nivers 10 mg 6-22 by mouth ity of tablet 00:00: daily. [address] predniSONE 2021-0 Yes 10mg Take 10 mg U nivers 10 mg 6-22 by mouth ity of tablet 00:00: daily. [address] predniSONE 2021-0 Yes 10mg Take 10 mg U nivers 10 mg 6-22 by mouth ity of tablet 00:00: daily. [place] [facility] predniSONE 1-0 Yes 10mg Take 10 mg U nivers 10 mg 6-22 by mouth ity of tablet 00:00: daily. [place] [facility] predniSONE 2021-0 Yes 10mg Take 10 mg U nivers 10 mg 6-22 by mouth ity of tablet 00:00: daily. [place] [facility] predniSONE 2021-0 Yes 10mg Take 10 mg U nivers 10 mg 6-22 by mouth ity of tablet 00:00: daily. [place] [facility] spironolact 1-0 Yes 25mg Take 25 mg Univers one 25 mg 6-08 by mouth ity of tablet 00:00: daily. [place] [facility] spironolact 1-0 Yes 25mg Take 25 mg Univers one 25 mg 6-08 by mouth ity of tablet 00:00: daily. [place] [facility] spironolact 1-0 Yes 25mg Take 25 mg Univers one 25 mg 6-08 by mouth ity of tablet 00:00: daily. [place] [facility] spironolact 1-0 Yes 25mg Take 25 mg Univers one 25 mg 6-08 by mouth ity of tablet 00:00: daily. [place] [facility] spironolact 1-0 Yes 25mg Take 25 mg Univers one 25 mg 6-08 by mouth ity of tablet 00:00: daily. [place] [facility] spironolact 1-0 Yes 25mg Take 25 mg Univers one 25 mg 6-08 by mouth ity of tablet 00:00: daily. [place] [facility] spironolact 2021-0 Yes 25mg Take 25 mg Univers one 25 mg 6-08 by mouth ity of tablet 00:00: daily. [place] [facility] spironolact 1-0 Yes 25mg Take 25 mg Univers one 25 mg 6-08 by mouth ity of tablet 00:00: daily. [place] [facility] spironolact 1-0 Yes 25mg Take 25 mg Univers one 25 mg 6-08 by mouth ity of tablet 00:00: daily. [address] spironolact 1-0 Yes 25mg Take 25 mg Univers one 25 mg 6-08 by mouth ity of tablet 00:00: daily. [address] spironolact 2020-0 Yes 25mg Take 25 mg Univers one 25 mg 6-08 by mouth ity of tablet 00:00: daily. [place] [facility] spironolact 2020-0 Yes 25mg Take 25 mg Univers one 25 mg 6-08 by mouth ity of tablet 00:00: daily. [place] [facility] spironolact 2020-0 Yes 25mg Take 25 mg Univers one 25 mg 6-08 by mouth ity of tablet 00:00: daily. [place] [facility] spironolact 2020-0 Yes 25mg Take 25 mg Univers one 25 mg 6-08 by mouth ity of tablet 00:00: daily. [place] [facility] spironolact 2020-0 Yes 25mg Take 25 mg Univers one 25 mg 6-08 by mouth ity of tablet 00:00: daily. [place] [facility] spironolact 2020-0 Yes 25mg Take 25 mg Univers one 25 mg 6-08 by mouth ity of tablet 00:00: daily. [place] [facility] spironolact 2020-0 Yes 25mg Take 25 mg Univers one 25 mg 6-08 by mouth ity of tablet 00:00: daily. [place] [facility] spironolact 2020-0 Yes 25mg Take 25 mg Univers one 25 mg 6-08 by mouth ity of tablet 00:00: daily. [place] [facility] spironolact 2020-0 Yes 25mg Take 25 mg Univers one 25 mg 6-08 by mouth ity of tablet 00:00: daily. [place] [facility] spironolact 2020-0 Yes 25mg Take 25 mg Univers one 25 mg 6-08 by mouth ity of tablet 00:00: daily. [place] [facility] spironolact 2020-0 Yes 25mg Take 25 mg Univers one 25 mg 6-08 by mouth ity of tablet 00:00: daily. [place] [facility] spironolact 2020-0 Yes 25mg Take 25 mg Univers one 25 mg 6-08 by mouth ity of tablet 00:00: daily. [place] [facility] spironolact 2020-0 Yes 25mg Take 25 mg Univers one 25 mg 6-08 by mouth ity of tablet 00:00: daily. [place] [facility] spironolact 2020-0 Yes 25mg Take 25 mg Univers one 25 mg 6-08 by mouth ity of tablet 00:00: daily. [facility] spironolact 2020-0 Yes 25mg Take 25 mg Univers one 25 mg 6-08 by mouth ity of tablet 00:00: daily. [facility] spironolact 2020-0 Yes 25mg Take 25 mg Univers one 25 mg 6-08 by mouth ity of tablet 00:00: daily. [place] [facility] spironolact 2020-0 Yes 25mg Take 25 mg Univers one 25 mg 6-08 by mouth ity of tablet 00:00: daily. [place] [facility] spironolact 2020-0 Yes 25mg Take 25 mg Univers one 25 mg 6-08 by mouth ity of tablet 00:00: daily. [place] [facility] spironolact 2020-0 Yes 25mg Take 25 mg Univers one 25 mg 6-08 by mouth ity of tablet 00:00: daily. [place] [facility] spironolact 2020-0 Yes 25mg Take 25 mg Univers one 25 mg 6-08 by mouth ity of tablet 00:00: daily. [place] [facility] spironolact 2020-0 Yes 25mg Take 25 mg Univers one 25 mg 6-08 by mouth ity of tablet 00:00: daily. [place] [facility] spironolact 2020-0 Yes 25mg Take 25 mg Univers one 25 mg 6-08 by mouth ity of tablet 00:00: daily. [place] [facility] spironolact 2020-0 Yes 25mg Take 25 mg Univers one 25 mg 6-08 by mouth ity of tablet 00:00: daily. [place] [facility] spironolact 2020-0 Yes 25mg Take 25 mg Univers one 25 mg 6-08 by mouth ity of tablet 00:00: daily. [place] [facility] spironolact 2020-0 Yes 25mg Take 25 mg Univers one 25 mg 6-08 by mouth ity of tablet 00:00: daily. [place] [facility] spironolact 2020-0 Yes 25mg Take 25 mg Univers one 25 mg 6-08 by mouth ity of tablet 00:00: daily. [place] [facility] spironolact 2020-0 Yes 25mg Take 25 mg [facility] one 25 mg 6-08 by mouth ity of tablet 00:00: daily. [facility] spironolact 2020-0 Yes 25mg Take 25 mg [facility] one 25 mg 6-08 by mouth ity of tablet 00:00: daily. [facility] spironolact 2020-0 Yes 25mg Take 25 mg [facility] one 25 mg 6-08 by mouth ity of tablet 00:00: daily. [place] [facility] spironolact 2020-0 Yes 25mg Take 25 mg [facility] one 25 mg 6-08 by mouth ity of tablet 00:00: daily. [place] [facility] spironolact 2020-0 Yes 25mg Take 25 mg [facility] one 25 mg 6-08 by mouth ity of tablet 00:00: daily. [place] [facility] spironolact 2020-0 Yes 25mg Take 25 mg Univers one 25 mg 6-08 by mouth ity of tablet 00:00: daily. [place] [facility] spironolact 2020-0 Yes 25mg Take 25 mg [facility] one 25 mg 6-08 by mouth ity of tablet 00:00: daily. [place] [facility] spironolact 2020-0 Yes 25mg Take 25 mg Univers one 25 mg 6-08 by mouth ity of tablet 00:00: daily. [place] [facility] spironolact 2020-0 Yes 25mg Take 25 mg [facility] one 25 mg 6-08 by mouth ity of tablet 00:00: daily. [place] [facility] spironolact 2020-0 Yes 25mg Take 25 mg [facility] one 25 mg 6-08 by mouth ity of tablet 00:00: daily. [place] [facility] spironolact 2020-0 Yes 25mg Take 25 mg [facility] one 25 mg 6-08 by mouth ity of tablet 00:00: daily. [place] [facility] spironolact 2020-0 Yes 25mg Take 25 mg Univers one 25 mg 6-08 by mouth ity of tablet 00:00: daily. [place] [facility] spironolact 2020-0 Yes 25mg Take 25 mg Univers one 25 mg 6-08 by mouth ity of tablet 00:00: daily. [place] [facility] spironolact 2020-0 Yes 25mg Take 25 mg [facility] one 25 mg 6-08 by mouth ity of tablet 00:00: daily. [place] [facility] spironolact 2020-0 Yes 25mg Take 25 mg [facility] one 25 mg 6-08 by mouth ity of tablet 00:00: daily. [facility] spironolact 2020-0 Yes 25mg Take 25 mg [facility] one 25 mg 6-08 by mouth ity of tablet 00:00: daily. [facility] spironolact 2020-0 Yes 25mg Take 25 mg [facility] one 25 mg 6-08 by mouth ity of tablet 00:00: daily. [place] [facility] spironolact 2020-0 Yes 25mg Take 25 mg [facility] one 25 mg 6-08 by mouth ity of tablet 00:00: daily. [place] [facility] spironolact 2020-0 Yes 25mg Take 25 mg [facility] one 25 mg 6-08 by mouth ity of tablet 00:00: daily. [place] [facility] spironolact 2020-0 Yes 25mg Take 25 mg [facility] one 25 mg 6-08 by mouth ity of tablet 00:00: daily. [place] [facility] spironolact 2020-0 Yes 25mg Take 25 mg [facility] one 25 mg 6-08 by mouth ity of tablet 00:00: daily. [place] [facility] spironolact 2020-0 Yes 25mg Take 25 mg [facility] one 25 mg 6-08 by mouth ity of tablet 00:00: daily. [place] [facility] spironolact 2020-0 Yes 25mg Take 25 mg [facility] one 25 mg 6-08 by mouth ity of tablet 00:00: daily. [place] [facility] spironolact 2020-0 Yes 25mg Take 25 mg [facility] one 25 mg 6-08 by mouth ity of tablet 00:00: daily. [place] [facility] neomycin-po 0 Yes [id number] 3[drp] Place 3 [facility] lymyxin-hyd 4-14 Drops in ity of rocortisone 00:00: left ear 4 [place] 3.5-,000- 00 (four) [facility] 1 times Branch mg/mL-unit/ daily. mL-% otic susp neomycin-po 0 Yes [id number] 3[drp] Place 3 [facility] lymyxin-hyd 4-14 Drops in ity of rocortisone 00:00: left ear 4 [place] 3.5-,000- 00 (four) [facility] 1 times Branch mg/mL-unit/ daily. mL-% otic susp neomycin-po 2020-0 Yes [id number] 3[drp] Place 3 [facility] lymyxin-hyd 4-14 Drops in ity of rocortisone 00:00: left ear 4 [place] 3.5-10,000- 00 (four) Med[facility] 1 times Branch mg/mL-unit/ daily. mL-% otic susp neomycin-po 2021-0 Yes [id number] 3[drp] Place 3 [facility] lymyxin-hyd 4-14 Drops in ity of rocortisone 00:00: left ear 4 [place] 3.5-10,000- (four) Med[facility] 1 times Branch mg/mL-unit/ daily. mL-% otic susp neomycin-po 2021-0 Yes [id number] 3[drp] Place 3 [facility] lymyxin-hyd 4-14 Drops in ity of rocortisone 00:00: left ear 4 [place] 3.5-000 (four) Medica [facility] 1 times Branch mg/mL-unit/ daily. mL-% otic susp neomycin-po 2021-0 Yes [id number] 3[drp] Place 3 [facility] lymyxin-hyd 4-14 Drops in ity of rocortisone 00:00: left ear 4 [place] 3.5-000 (four) Medica [facility] 1 times Branch mg/mL-unit/ daily. mL-% otic susp neomycin-po 2021-0 Yes [id number] 3[drp] Place 3 [facility] lymyxin-hyd 4-14 Drops in ity of rocortisone 00:00: left ear 4 [place] 3.5- (four) Med[facility] 1 times Branch mg/mL-unit/ daily. mL-% otic susp neomycin-po 2021-0 Yes [id number] 3[drp] Place 3 [facility] lymyxin-hyd 4-14 Drops in ity of rocortisone 00:00: left ear 4 [place] 3.5-10000 (four) Medica [facility] 1 times Branch mg/mL-unit/ daily. mL-% otic susp neomycin-po 2021-0 Yes [id number] 3[drp] Place 3 [facility] lymyxin-hyd 4-14 Drops in ity of rocortisone 00:00: left ear 4 [place] 3.5-000 (four) Med[facility] 1 times Branch mg/mL-unit/ daily. mL-% otic susp neomycin-po 2021-0 Yes [id number] 3[drp] Place 3 [facility] lymyxin-hyd 4-14 Drops in ity of rocortisone 00:00: left ear 4 [place] 3.5-10,000- 00 (four) Med[facility] 1 times Branch mg/mL-unit/ daily. mL-% otic susp neomycin-po 2021-0 Yes [id number] 3[drp] Place 3 [facility] lymyxin-hyd 4-14 Drops in ity of rocortisone 00:00: left ear 4 [place] 3.5-000- 00 (four) Med[facility] 1 times Branch mg/mL-unit/ daily. mL-% otic susp neomycin-po 2021-0 Yes [id number] 3[drp] Place 3 [facility] lymyxin-hyd 4-14 Drops in ity of rocortisone 00:00: left ear 4 [place] 3.5- (four) Med[facility] 1 times Branch mg/mL-unit/ daily. mL-% otic susp neomycin-po 2021-0 Yes [id number] 3[drp] Place 3 [facility] lymyxin-hyd 4-14 Drops in ity of rocortisone 00:00: left ear 4 [place] 3.5-000 00 (four) Med[facility] 1 times Branch mg/mL-unit/ daily. mL-% otic susp neomycin-po 2021-0 Yes [id number] 3[drp] Place 3 [facility] lymyxin-hyd 4-14 Drops in ity of rocortisone 00:00: left ear 4 [place] 3.5-,000 00 (four) Med[facility] 1 times Branch mg/mL-unit/ daily. mL-% otic susp neomycin-po 2021-0 Yes [id number] 3[drp] Place 3 [facility] lymyxin-hyd 4-14 Drops in ity of rocortisone 00:00: left ear 4 [place] 3.5-10,000- 00 (four) Med[facility] 1 times Branch mg/mL-unit/ daily. mL-% otic susp neomycin-po 2021-0 Yes [id number] 3[drp] Place 3 [facility] lymyxin-hyd 4-14 Drops in ity of rocortisone 00:00: left ear 4 [place] 3.5-,000- 00 (four) Medica [facility] 1 times Branch mg/mL-unit/ daily. mL-% otic susp neomycin-po 2021-0 Yes [id number] 3[drp] Place 3 [facility] lymyxin-hyd 4-14 Drops in ity of rocortisone 00:00: left ear 4 [place] 3.5-,000- 00 (four) Med[facility] 1 times Branch mg/mL-unit/ daily. mL-% otic susp neomycin-po 2021-0 Yes [id number] 3[drp] Place 3 [facility] lymyxin-hyd 4-14 Drops in ity of rocortisone 00:00: left ear 4 [place] 3.5-000 00 (four) Med[facility] 1 times Branch mg/mL-unit/ daily. mL-% otic susp neomycin-po 2021-0 Yes [id number] 3[drp] Place 3 [facility] lymyxin-hyd 4-14 Drops in ity of rocortisone 00:00: left ear 4 [place] 3.5-000 (four) Med[facility] 1 times Branch mg/mL-unit/ daily. mL-% otic susp neomycin-po 2021-0 Yes [id number] 3[drp] Place 3 [facility] lymyxin-hyd 4-14 Drops in ity of rocortisone 00:00: left ear 4 [place] 3.5-,000- 00 (four) Med[facility] 1 times Branch mg/mL-unit/ daily. mL-% otic susp neomycin-po 2021-0 Yes [id number] 3[drp] Place 3 [facility] lymyxin-hyd 4-14 Drops in ity of rocortisone 00:00: left ear 4 [place] 3.5-10,000 00 (four) Med[facility] 1 times Branch mg/mL-unit/ daily. mL-% otic susp neomycin-po 2021-0 Yes [id number] 3[drp] Place 3 [facility] lymyxin-hyd 4-14 Drops in ity of rocortisone 00:00: left ear 4 [place] 3.5-,000- 00 (four) Med[facility] 1 times Branch mg/mL-unit/ daily. mL-% otic susp neomycin-po 2021-0 Yes [id number] 3[drp] Place 3 [facility] lymyxin-hyd 4-14 Drops in ity of rocortisone 00:00: left ear 4 [place] 3.5-10,000- 00 (four) Medica [facility] 1 times Branch mg/mL-unit/ daily. mL-% otic susp neomycin-po 2021-0 Yes [id number] 3[drp] Place 3 [facility] lymyxin-hyd 4-14 Drops in ity of rocortisone 00:00: left ear 4 [place] 3.5-10,000- 00 (four) Medica [facility] 1 times Branch mg/mL-unit/ daily. mL-% otic susp neomycin-po 2021-0 Yes [id number] 3[drp] Place 3 [facility] lymyxin-hyd 4-14 Drops in ity of rocortisone 00:00: left ear 4 [place] 3.5-10,000- 00 (four) Medica [facility] 1 times Branch mg/mL-unit/ daily. mL-% otic susp neomycin-po 2021-0 Yes [id number] 3[drp] Place 3 [facility] lymyxin-hyd 4-14 Drops in ity of rocortisone 00:00: left ear 4 [place] 3.5-10,000- 00 (four) Med[facility] 1 times Branch mg/mL-unit/ daily. mL-% otic susp neomycin-po 2021-0 Yes [id number] 3[drp] Place 3 [facility] lymyxin-hyd 4-14 Drops in ity of rocortisone 00:00: left ear 4 [place] 3.5-10,000- 00 (four) Med[facility] 1 times Branch mg/mL-unit/ daily. mL-% otic susp neomycin-po 2021-0 Yes [id number] 3[drp] Place 3 [facility] lymyxin-hyd 4-14 Drops in ity of rocortisone 00:00: left ear 4 [place] 3.5-10,000- 00 (four) Medica [facility] 1 times Branch mg/mL-unit/ daily. mL-% otic susp neomycin-po 2021-0 Yes [id number] 3[drp] Place 3 [facility] lymyxin-hyd 4-14 Drops in ity of rocortisone 00:00: left ear 4 [place] 3.5-10,000- 00 (four) Medica [facility] 1 times Branch mg/mL-unit/ daily. mL-% otic susp neomycin-po 2021-0 Yes [id number] 3[drp] Place 3 [facility] lymyxin-hyd 4-14 Drops in ity of rocortisone 00:00: left ear 4 [place] 3.5-10,000- 00 (four) Medica [facility] 1 times Branch mg/mL-unit/ daily. mL-% otic susp neomycin-po 2021-0 Yes [id number] 3[drp] Place 3 [facility] lymyxin-hyd 4-14 Drops in ity of rocortisone 00:00: left ear 4 [place] 3.5-10,000- 00 (four) Medica [facility] 1 times Branch mg/mL-unit/ daily. mL-% otic susp neomycin-po 2021-0 Yes [id number] 3[drp] Place 3 [facility] lymyxin-hyd 4-14 Drops in ity of rocortisone 00:00: left ear 4 [place] 3.5-10000- (four) Medica [facility] 1 times Branch mg/mL-unit/ daily. mL-% otic susp neomycin-po 2021-0 Yes [id number] 3[drp] Place 3 [facility] lymyxin-hyd 4-14 Drops in ity of rocortisone 00:00: left ear 4 [place] 3.5-10,000 00 (four) Medica [facility] 1 times Branch mg/mL-unit/ daily. mL-% otic susp neomycin-po 2021-0 Yes [id number] 3[drp] Place 3 [facility] lymyxin-hyd 4-14 Drops in ity of rocortisone 00:00: left ear 4 [place] 3.5-000- 00 (four) Medica [facility] 1 times Branch mg/mL-unit/ daily. mL-% otic susp neomycin-po 2021-0 Yes [id number] 3[drp] Place 3 [facility] lymyxin-hyd 4-14 Drops in ity of rocortisone 00:00: left ear 4 [place] 3.5-10,000- 00 (four) Medica [facility] 1 times Branch mg/mL-unit/ daily. mL-% otic susp neomycin-po 2021-0 Yes [id number] 3[drp] Place 3 [facility] lymyxin-hyd 4-14 Drops in ity of rocortisone 00:00: left ear 4 [place] 3.5-10,000- 00 (four) Medica [facility] 1 times Branch mg/mL-unit/ daily. mL-% otic susp neomycin-po 2020-0 Yes [id number] 3[drp] Place 3 [facility] lymyxin-hyd 4-14 Drops in ity of rocortisone 00:00: left ear 4 [place] 3.5-10,000- 00 (four) Medica [facility] 1 times Branch mg/mL-unit/ daily. mL-% otic susp neomycin-po 2020-0 2- No [id number] 3[drp] Place 3 [facility] lymyxin-hyd 4-14 12-21 Drops in ity of rocortisone 00:00: 00:00 left ear 4 [place] 3.5-,000- 00 :00 (four) Medica [facility] 1 times Branch mg/mL-unit/ daily. mL-% otic susp neomycin-po 0 2021- No [id number] 3[drp] Place 3 [facility] lymyxin-hyd 4-14 12-21 Drops in ity of rocortisone 00:00: 00:00 left ear 4 [place] 3.5-,000- 00 :00 (four) Medica l 1 [...] mcg DsDv 00 EVERY DAY [facility] [place] TRELEGY 2020- Yes INHALE 1 Univer [facility] ELLIPTA 2-24 PUFF BY ity of 100-62.5-25 00:00: MOUTH [place] mcg DsDv 00 EVERY DAY [facility] [place] TRELEGY 2019- Yes INHALE 1 Univer s ELLIPTA 2-24 PUFF BY ity of 100-62.5-25 00:00: MOUTH [place] mcg DsDv 00 EVERY DAY [facility] [place] TRELEGY 2019- Yes INHALE 1 Univer s ELLIPTA 2-24 PUFF BY ity of 100-62.5-25 00:00: MOUTH [place] mcg DsDv 00 EVERY DAY [facility] [place] TRELEGY 2019- Yes INHALE 1 Univer s ELLIPTA 2-24 PUFF BY ity of 100-62.5-25 00:00: MOUTH [place] mcg DsDv 00 EVERY DAY [facility] TRELEGY 2020- Yes INHALE 1 Univer [facility] ELLIPTA 2-24 PUFF BY ity of 100-62.5-25 00:00: MOUTH [place] mcg DsDv 00 EVERY DAY [facility] TRELEGY 2020- Yes INHALE 1 Un[facility] s ELLIPTA 2-24 PUFF BY ity of 100-62.5-25 00:00: MOUTH [place] mcg DsDv 00 EVERY DAY [facility] TRELEGY 2020- Yes INHALE 1 Un[facility] ELLIPTA 2-24 PUFF BY ity of 100-62.5-25 00:00: MOUTH [place] mcg DsDv 00 EVERY DAY [facility] [place] TRELEGY 2020- Yes INHALE 1 Un[facility] s ELLIPTA 2-24 PUFF BY ity of 100-62.5-25 00:00: MOUTH [place] mcg DsDv 00 EVERY DAY [facility] [place] TRELEGY 2020- Yes INHALE 1 Un[facility] s ELLIPTA 2-24 PUFF BY ity of 100-62.5-25 00:00: MOUTH [place] mcg DsDv 00 EVERY DAY [facility] [place] TRELEGY 2020- Yes INHALE 1 Univer s [...] [place] mcg DsDv 00 EVERY DAY [facility] TRELEGY 2020- Yes INHALE 1 Univer s ELLIPTA 2-24 PUFF BY ity of 100-62.5-25 00:00: MOUTH [place] mcg DsDv 00 EVERY DAY [facility] [place] TRELEGY 2019- Yes INHALE 1 Univer s ELLIPTA 2-24 PUFF BY ity of 100-62.5-25 00:00: MOUTH [place] mcg DsDv 00 EVERY DAY [facility] [place] TRELEGY 2019- Yes INHALE 1 Univer s ELLIPTA 2-24 PUFF BY ity of 100-62.5-25 00:00: MOUTH [place] [facility] ELLIPTA 2-24 PUFF BY ity of 100-62.5-25 00:00: MOUTH [place] [facility]cg D[facility]Dv 00 [facility] ELLIPTA 2-24 PUFF BY ity of 100-62.5-25 00:00: MOUTH [place] [facility]cg DsDv 00 [facility] ELLIPTA 2-24 PUFF BY ity of 100-62.5-25 00:00: MOUTH [place] [facility]cg D[facility]Dv 00 [facility] ELLIPTA 2-24 PUFF BY ity of 100-62.5-25 00:00: MOUTH [place] mcg DsDv 00 EVERY DAY [facility] [place] TRELEGY 2020- Yes INHALE 1 Un[facility] s ELLIPTA 2-24 PUFF BY ity of 100-62.5-25 00:00: MOUTH [place] mcg DsDv 00 EVERY DAY [facility] [place] TRELEGY 2020- Yes INHALE 1 Univer s ELLIPTA 2-24 PUFF BY ity of 100-62.5-25 00:00: MOUTH [place] mcg DsDv 00 EVERY DAY [facility] [place] TRELEGY 2020- Yes INHALE 1 Univer s ELLIPTA 2-24 PUFF BY ity of 100-62.5-25 00:00: MOUTH [place] mcg DsDv 00 EVERY DAY [facility] [place] TRELEGY 2020- Yes INHALE 1 Un[facility] s ELLIPTA 2-24 PUFF BY ity of 100-62.5-25 00:00: MOUTH [place] mcg DsDv 00 EVERY DAY [facility] [place] TRELEGY 2020- Yes INHALE 1 Univer s ELLIPTA 2-24 PUFF BY ity of 100-62.5-25 00:00: MOUTH [place] mcg DsDv 00 EVERY DAY [facility] [place] TRELEGY 2020- Yes INHALE 1 Un[facility] s ELLIPTA 2-24 PUFF BY ity of 100-62.5-25 00:00: MOUTH [place] mcg DsDv 00 EVERY DAY [facility] [place] TRELEGY 2020- Yes INHALE 1 Un[facility] s ELLIPTA 2-24 PUFF BY ity of 100-62.5-25 00:00: MOUTH [place] mcg DsDv 00 EVERY DAY [facility] [place] TRELEGY 2020- Yes INHALE 1 Univer s ELLIPTA 2-24 PUFF BY ity of 100-62.5-25 00:00: MOUTH [place] mcg DsDv 00 EVERY DAY [facility] [place] TRELEGY 2020- Yes INHALE 1 Univer s ELLIPTA 2-24 PUFF BY ity of 100-62.5-25 00:00: MOUTH [place] mcg DsDv 00 EVERY DAY [facility] [place] TRELEGY 2020- Yes INHALE 1 Univer s ELLIPTA 2-24 PUFF BY ity of 100-62.5-25 00:00: MOUTH [place] mcg DsDv 00 EVERY DAY [facility] [place] TRELEGY 2020- Yes INHALE 1 Un[facility] s ELLIPTA 2-24 PUFF BY ity of 100-62.5-25 00:00: MOUTH [place] mcg DsDv 00 EVERY DAY [facility] [place] TRELEGY 2020- Yes INHALE 1 Univer s ELLIPTA 2-24 PUFF BY ity of 100-62.5-25 00:00: MOUTH [place] mcg DsDv 00 EVERY DAY [facility] [place] TRELEGY 2020- Yes INHALE 1 Univer s ELLIPTA 2-24 PUFF BY ity of 100-62.5-25 00:00: MOUTH [place] mcg DsDv 00 EVERY DAY [facility] [place] TRELEGY 2020-1 Yes INHALE 1 Univer s [...] by mouth ity of 00:00: at bedtime [place] 00 as needed. [facility] zolpidem 10 2019-11 Yes 10mg Take 10 mg [facility] mg tablet 2-14 by mouth ity of 00:00: at bedtime [place] 00 as needed. [facility] zolpidem 10 2019-11 Yes 10mg Take 10 mg [facility] mg tablet 2-14 by mouth ity of 00:00: at bedtime [place] 00 as needed. Medical [facility] zolpidem 10 2019-11 Yes 10mg Take 10 mg [facility] mg tablet 2-14 by mouth ity of 00:00: at bedtime [place] 00 as needed. Medical [facility] zolpidem 10 2019-11 Yes 10mg Take 10 mg [facility] mg tablet 2-14 by mouth ity of 00:00: at bedtime [place] 00 as needed. [facility] zolpidem 10 2019-11 Yes 10mg Take 10 mg [facility] mg tablet 2-14 by mouth ity of 00:00: at bedtime [place] 00 as needed. Medical Branch zolpidem 10 2019-11 Yes 10mg Take 10 mg [facility] mg tablet 2-14 by mouth ity of 00:00: at bedtime [place] 00 as needed. Medical [facility] zolpidem 10 2019-11 Yes 10mg Take 10 mg [facility] mg tablet 2-14 by mouth ity of 00:00: at bedtime [place] 00 as needed. [facility] zolpidem 10 2019-11 Yes 10mg Take 10 mg [facility] mg tablet 2-14 by mouth ity of 00:00: at bedtime [place] 00 as needed. [facility] zolpidem 10 2019-11 Yes 10mg Take 10 mg [facility] mg tablet 2-14 by mouth ity of 00:00: at bedtime [place] 00 as needed. [facility] zolpidem 10 2019-11 Yes 10mg Take 10 mg [facility] mg tablet 2-14 by mouth ity of 00:00: at bedtime [place] 00 as needed. [facility] zolpidem 10 2019-11 Yes 10mg Take 10 mg [facility] mg tablet 2-14 by mouth ity of 00:00: at bedtime [place] 00 as needed. Medical [facility] zolpidem 10 2019-11 Yes 10mg Take 10 mg [facility] mg tablet 2-14 by mouth ity of 00:00: at bedtime [place] 00 as needed. Medical Branch zolpidem 10 [...] by mouth ity of 00:00: at bedtime [place] 00 as needed. [facility] zolpidem 10 2019-11 Yes 10mg Take 10 mg [facility] mg tablet 2-14 by mouth ity of 00:00: at bedtime [place] 00 as needed. [facility] zolpidem 10 2019-11 Yes 10mg Take 10 mg [facility] mg tablet 2-14 by mouth ity of 00:00: at bedtime [place] 00 as needed. [facility] zolpidem 10 2019-11 Yes 10mg Take 10 mg [facility] mg tablet 2-14 by mouth ity of 00:00: at bedtime [place] 00 as needed. Medical Branch zolpidem 10 [...] by mouth ity of 00:00: at bedtime [place] 00 as needed. [facility] zolpidem 10 [...] vers tablet 1-12 D ity of 00:00: [place] 00 [facility] MOTEGRITY 2020- Yes TK 1 T PO Uni vers tablet 1-12 D ity of 00:00: [place] [facility] MOTEGRITY 2020- Yes TK 1 T PO Uni vers tablet 1-12 D ity of 00:00: [place] [facility] MOTEGRITY 2020- Yes TK 1 T PO Uni vers tablet 1-12 D ity of 00:00: [place] [facility] MOTEGRITY 2020- Yes TK 1 T PO Uni vers tablet 1-12 D ity of 00:00: [place] [facility] MOTEGRITY 2020- Yes TK 1 T PO Uni vers tablet 1-12 D ity of 00:00: [place] [facility] MOTEGRITY 2020- Yes TK 1 T PO Uni vers tablet 1-12 D ity of 00:00: [place] [facility] MOTEGRITY 2020- Yes TK 1 T PO Uni vers tablet 1-12 D ity of 00:00: [place] [facility] MOTEGRITY 2020- Yes TK 1 T PO Uni vers tablet 1-12 D ity of 00:00: [place] [facility] MOTEGRITY 2020- Yes TK 1 T PO Uni vers tablet 1-12 D ity of 00:00: [place] [facility] MOTEGRITY 2020- Yes TK 1 T PO Uni vers tablet 1-12 D ity of 00:00: [place] [facility] MOTEGRITY 2020- Yes TK 1 T PO Uni vers tablet 1-12 D ity of 00:00: [place] [facility] MOTEGRITY 2020- Yes TK 1 T PO Uni vers tablet 1-12 D ity of 00:00: [place] [facility] MOTEGRITY 2020- Yes TK 1 T PO Uni vers tablet 1-12 D ity of 00:00: [place] 00 [facility] MOTEGRITY 2020- Yes TK 1 T PO Uni vers tablet 1-12 D ity of 00:00: [place] 00 [facility] MOTEGRITY 2020- Yes TK 1 T PO Uni vers tablet 1-12 D ity of 00:00: [place] 00 [facility] MOTEGRITY 2020- Yes TK 1 T PO Uni vers tablet 1-12 D ity of 00:00: [place] [facility] MOTEGRITY 2020-1 Yes TK 1 T PO Uni vers tablet 1-12 D ity of 00:00: [place] 00 [facility] MOTEGRITY 2020- Yes TK 1 T PO Uni vers tablet 1-12 D ity of 00:00: [place] [facility] MOTEGRITY 2020- Yes TK 1 T PO Uni vers tablet 1-12 D ity of 00:00: [place] [facility] MOTEGRITY 2020- Yes TK 1 T PO Uni vers tablet 1-12 D ity of 00:00: [place] [facility] MOTEGRITY 2020- Yes TK 1 T PO Uni vers tablet 1-12 D ity of 00:00: [place] [facility] MOTEGRITY 2020- Yes TK 1 T PO Uni vers tablet 1-12 D ity of 00:00: [place] [facility] MOTEGRITY 2020- Yes TK 1 T PO Uni vers tablet 1-12 D ity of 00:00: [place] [facility] MOTEGRITY 2020- Yes TK 1 T PO Uni vers tablet 1-12 D ity of 00:00: [place] [facility] MOTEGRITY 2020- Yes TK 1 T PO Uni vers tablet 1-12 D ity of 00:00: [place] [facility] MOTEGRITY 2020- Yes TK 1 T PO Uni vers tablet 1-12 D ity of 00:00: [place] 00 [facility] MOTEGRITY 2020- Yes TK 1 T PO Uni vers tablet 1-12 D ity of 00:00: [place] 00 [facility] MOTEGRITY 2020- Yes TK 1 T PO Uni vers tablet 1-12 D ity of 00:00: [place] [facility] MOTEGRITY 2020- Yes TK 1 T PO Uni vers tablet 1-12 D ity of 00:00: [place] 00 [facility] MOTEGRITY 2020- Yes TK 1 T PO Uni vers tablet 1-12 D ity of 00:00: [place] 00 [facility] MOTEGRITY 2020- Yes TK 1 T PO Uni vers tablet 1-12 D ity of 00:00: [place] [facility] MOTEGRITY 2020- Yes TK 1 T PO Uni vers tablet 1-12 D ity of 00:00: [place] 00 [facility] MOTEGRITY 2020- Yes TK 1 T PO Uni vers tablet 1-12 D ity of 00:00: [place] [facility] MOTEGRITY 2020- Yes TK 1 T PO Uni vers tablet 1-12 D ity of 00:00: [place] 00 [facility] MOTEGRITY 2020- Yes TK 1 T PO Uni vers tablet 1-12 D ity of 00:00: [place] [facility] MOTEGRITY 2020- Yes TK 1 T PO Uni vers tablet 1-12 D ity of 00:00: [place] [facility] MOTEGRITY 2020- Yes TK 1 T PO Uni vers tablet 1-12 D ity of 00:00: [place] [facility] MOTEGRITY 2020- Yes TK 1 T PO Uni vers tablet 1-12 D ity of 00:00: [place] [facility] MOTEGRITY 2020- Yes TK 1 T PO Uni vers tablet 1-12 D ity of 00:00: [place] [facility] MOTEGRITY 2020- Yes TK 1 T PO Uni vers tablet 1-12 D ity of 00:00: [place] [facility] MOTEGRITY 2020- Yes TK 1 T PO Uni vers tablet 1-12 D ity of 00:00: [place] [facility] MOTEGRITY 2020- Yes TK 1 T PO Uni vers tablet 1-12 D ity of 00:00: [place] [facility] MOTEGRITY 2020- Yes TK 1 T PO Uni vers tablet 1-12 D ity of 00:00: [place] [facility] MOTEGRITY 2020- Yes TK 1 T PO Uni vers tablet 1-12 D ity of 00:00: [place] [facility] MOTEGRITY 2020- Yes TK 1 T PO Uni vers tablet 1-12 D ity of 00:00: [place] [facility] MOTEGRITY 2020- Yes TK 1 T PO Uni vers tablet 1-12 D ity of 00:00: [place] 00 [facility] MOTEGRITY 2020- Yes TK 1 T PO Uni vers tablet 1-12 D ity of 00:00: [place] 00 [facility] MOTEGRITY 2020- Yes TK 1 T PO Uni vers tablet 1-12 D ity of 00:00: [place] 00 [facility] MOTEGRITY 2020- Yes TK 1 T PO Uni vers tablet 1-12 D ity of 00:00: [place] 00 [facility] MOTEGRITY 2020- Yes TK 1 T [...] of 00:00: Medical Branch diclofenac 2020- Yes [id number] 75mg Take 1 [facility] 75 mg EC 0-08 tablet by ity of tablet 00:00: mouth (two) Medical times Branch daily with meals. diclofenac 2020-1 Yes [id number] 75mg Take 1 [facility] 75 mg EC 0-08 tablet by ity of tablet 00:00: mouth (two) Medical times Branch daily with meals. diclofenac 2020- Yes [id number] 75mg Take 1 [facility] 75 mg EC 0-08 tablet by ity of tablet 00:00: mouth (two) Medical times Branch daily with meals. diclofenac 2020- Yes [id number] 75mg Take 1 [facility] 75 mg EC 0-08 tablet by ity of tablet 00:00: mouth (two) Medical times Branch daily with meals. diclofenac 2019- Yes [id number] 75mg Take 1 [facility] 75 mg EC 0-08 tablet by ity of tablet 00:00: mouth (two) Medical times Branch daily with meals. diclofenac 2020- Yes [id number] 75mg Take 1 [facility] 75 mg EC 0-08 tablet by ity of tablet 00:00: mouth (two) Medical times Branch daily with meals. diclofenac 2019- Yes [id number] 75mg Take 1 [facility] 75 mg EC 0-08 tablet by ity of tablet 00:00: mouth (two) Medical times Branch daily with meals. diclofenac 2019- Yes [id number] 75mg Take 1 [facility] 75 mg EC 0-08 tablet by ity of tablet 00:00: mouth (two) Medical times Branch daily with meals. diclofenac 2020- Yes [id number] 75mg Take 1 [facility] 75 mg EC 0-08 tablet by ity of tablet 00:00: mouth (two) Medical times Branch daily with meals. diclofenac 2020-1 Yes [id number] 75mg Take 1 [facility] 75 mg EC 0-08 tablet by ity of tablet 00:00: mouth (two) Medical times Branch daily with meals. diclofenac 2020-1 Yes [id number] 75mg Take 1 [facility] 75 mg EC 0-08 tablet by ity of tablet 00:00: mouth (two) Medical times Branch daily with meals. diclofenac 2020-1 Yes [id number] 75mg Take 1 [facility] 75 mg EC 0-08 tablet by ity of tablet 00:00: mouth [place] (two) Medical times Branch daily with meals. diclofenac 2019- Yes [id number] 75mg Take 1 [facility] 75 mg EC 0-08 tablet by ity of tablet 00:00: mouth (two) Medical times Branch daily with meals. diclofenac 2019- Yes [id number] 75mg Take 1 [facility] 75 mg EC 0-08 tablet by ity of tablet 00:00: mouth [place] (two) Medical times Branch daily with meals. diclofenac 2019- Yes [id number] 75mg Take 1 [facility] 75 mg EC 0-08 tablet by ity of tablet 00:00: mouth [place] (two) Medical times Branch daily with meals. diclofenac 2019- Yes [id number] 75mg Take 1 [facility] 75 mg EC 0-08 tablet by ity of tablet 00:00: mouth [place] (two) Medical times Branch daily with meals. diclofenac 2019- Yes [id number] 75mg Take 1 [facility] 75 mg EC 0-08 tablet by ity of tablet 00:00: mouth [place] (two) Medical times Branch daily with meals. diclofenac 2019- Yes [id number] 75mg Take 1 [facility] 75 mg EC 0-08 tablet by ity of tablet 00:00: mouth [place] (two) Medical times Branch daily with meals. diclofenac 2019- Yes [id number] 75mg Take 1 [facility] 75 mg EC 0-08 tablet by ity of tablet 00:00: mouth [place] (two) Medical times Branch daily with meals. diclofenac 2019- Yes [id number] 75mg Take 1 [facility] 75 mg EC 0-08 tablet by ity of tablet 00:00: mouth [place] (two) Medical times Branch daily with meals. diclofenac 2019- Yes [id number] 75mg Take 1 [facility] 75 mg EC 0-08 tablet by ity of tablet 00:00: mouth [place] (two) Medical times Branch daily with meals. diclofenac 2019- Yes [id number] 75mg Take 1 [facility] 75 mg EC 0-08 tablet by ity of tablet 00:00: mouth [place] (two) Medical times Branch daily with meals. diclofenac 2019-11- No [id number] 75mg Take 1 [facility] 75 mg EC 0-08 10-25 tablet by ity o f tablet 00:00: 00:00 mouth 2 [place] 00 :00 (two) Medical times Branch daily with meals. diclofenac 2020-2021- No [id number] 75mg Take 1 [facility] 75 mg EC 0-08 10-25 tablet by ity o f tablet 00:00: 00:00 mouth 2 [place] 00 :00 (two) Medical times Branch daily with meals. CLONIDINE 2020-0 Yes [id number] TAKE 1 Un ally 0.2 mg 8-06 TABLET BY ity of tablet 00:00: MOUTH 00 THREE Medical TIMES Branch DAILY CLONIDINE 2020-0 Yes [id number] TAKE 1 Un ally 0.2 mg 8-06 TABLET BY ity of tablet 00:00: MOUTH THREE Medical TIMES Branch DAILY CLONIDINE 2020-0 Yes [id number] TAKE 1 Un ally 0.2 mg 8-06 TABLET BY ity of tablet 00:00: MOUTH THREE Medical TIMES Branch DAILY CLONIDINE 2020-0 Yes [id number] TAKE 1 Un ally 0.2 mg 8-06 TABLET BY ity of tablet 00:00: MOUTH THREE Medical TIMES Branch DAILY CLONIDINE 2020-0 Yes [id number] TAKE 1 Un ally 0.2 mg 8-06 TABLET BY ity of tablet 00:00: MOUTH 00 THREE Medical TIMES Branch DAILY CLONIDINE 2020-0 Yes [id number] TAKE 1 Un ally 0.2 mg 8-06 TABLET BY ity of tablet 00:00: MOUTH 00 THREE Medical TIMES Branch DAILY CLONIDINE 2020-0 Yes [id number] TAKE 1 Un alyl 0.2 mg 8-06 TABLET BY ity of tablet 00:00: MOUTH 00 THREE Medical TIMES Branch DAILY CLONIDINE 2020-0 Yes [id number] TAKE 1 Un ally 0.2 mg 8-06 TABLET BY ity of tablet 00:00: MOUTH THREE Medical TIMES Branch DAILY CLONIDINE 2020-0 Yes [id number] TAKE 1 Un ally 0.2 mg 8-06 TABLET BY ity of tablet 00:00: MOUTH THREE Medical TIMES Branch DAILY CLONIDINE 2020-0 Yes [id number] TAKE 1 Un ally 0.2 mg 8-06 TABLET BY ity of tablet 00:00: MOUTH THREE Medical TIMES Branch DAILY CLONIDINE 2020-0 Yes [id number] TAKE 1 Un ally 0.2 mg 8-06 TABLET BY ity of tablet 00:00: MOUTH THREE Medical TIMES Branch DAILY CLONIDINE 2020-0 Yes [id number] TAKE 1 Un ally 0.2 mg 8-06 TABLET BY ity of tablet 00:00: MOUTH THREE Medical TIMES Branch DAILY CLONIDINE 2020-0 Yes [id number] TAKE 1 Un ally 0.2 mg 8-06 TABLET BY ity of tablet 00:00: MOUTH THREE Medical TIMES Branch DAILY CLONIDINE 2020-0 Yes [id number] TAKE 1 Un ally 0.2 mg 8-06 TABLET BY ity of tablet 00:00: MOUTH THREE Medical TIMES Branch DAILY CLONIDINE 2020-0 Yes [id number] TAKE 1 Un ally 0.2 mg 8-06 TABLET BY ity of tablet 00:00: MOUTH THREE Medical TIMES Branch DAILY CLONIDINE 2020-0 Yes [id number] TAKE 1 Un ally 0.2 mg 8-06 TABLET BY ity of tablet 00:00: THREE Medical TIMES Branch DAILY CLONIDINE 2020-0 Yes [id number] TAKE 1 Un ally 0.2 mg 8-06 TABLET BY ity of tablet 00:00: THREE Medical TIMES Branch DAILY CLONIDINE 2020-0 Yes [id number] TAKE 1 Un ally 0.2 mg 8-06 TABLET BY ity of tablet 00:00: MOUTH THREE Medical TIMES Branch DAILY CLONIDINE 2020-0 Yes [id number] TAKE 1 Un ally 0.2 mg 8-06 TABLET BY ity of tablet 00:00: THREE Medical TIMES Branch DAILY CLONIDINE 2020-0 Yes [id number] TAKE 1 Un ally 0.2 mg 8-06 TABLET BY ity of tablet 00:00: THREE Medical TIMES Branch DAILY CLONIDINE 2020-0 Yes [id number] TAKE 1 Un ally 0.2 mg 8-06 TABLET BY ity of tablet 00:00: MOUTH THREE Medical TIMES Branch DAILY CLONIDINE 2020-0 Yes [id number] TAKE 1 Un ally 0.2 mg 8-06 TABLET BY ity of tablet 00:00: MOUTH THREE Medical TIMES Branch DAILY CLONIDINE 2020-0 Yes [id number] TAKE 1 Un ally 0.2 mg 8-06 TABLET BY ity of tablet 00:00: MOUTH THREE Medical TIMES Branch DAILY CLONIDINE 2020-0 Yes [id number] TAKE 1 Un ally 0.2 mg 8-06 TABLET BY ity of tablet 00:00: THREE Medical TIMES Branch DAILY CLONIDINE 2020-0 Yes [id number] TAKE 1 Un ally 0.2 mg 8-06 TABLET BY ity of tablet 00:00: MOUTH THREE Medical TIMES Branch DAILY CLONIDINE 2020-0 Yes [id number] TAKE 1 [facility] ally 0.2 mg 8-06 TABLET BY ity of tablet 00:00: MOUTH THREE Medical TIMES Branch DAILY CLONIDINE 2020-0 Yes [id number] TAKE 1 Un ally 0.2 mg 8-06 TABLET BY ity of tablet 00:00: MOUTH THREE Medical TIMES Branch DAILY CLONIDINE 2020-0 Yes [id number] TAKE 1 Un ally 0.2 mg 8-06 TABLET BY ity of tablet 00:00: MOUTH 00 THREE Medical TIMES Branch DAILY CLONIDINE 2020-0 Yes [id number] TAKE 1 [facility] ally 0.2 mg 8-06 TABLET BY ity of tablet 00:00: MOUTH 00 THREE Medical TIMES Branch DAILY CLONIDINE 2020-0 Yes [id number] TAKE 1 Un ally 0.2 mg 8-06 TABLET BY ity of tablet 00:00: MOUTH 00 THREE Medical TIMES Branch DAILY CLONIDINE 2020-0 Yes [id number] TAKE 1 Un ally 0.2 mg 8-06 TABLET BY ity of tablet 00:00: MOUTH 00 THREE Medical TIMES Branch DAILY CLONIDINE 2020-0 Yes [id number] TAKE 1 Un ally 0.2 mg 8-06 TABLET BY ity of tablet 00:00: MOUTH 00 THREE Medical TIMES Branch DAILY CLONIDINE 2020-0 Yes [id number] TAKE 1 Un ally 0.2 mg 8-06 TABLET BY ity of tablet 00:00: MOUTH 00 THREE Medical TIMES Branch DAILY CLONIDINE 2020-0 2021- No [id number] TAKE 1 U nivers 0.2 mg 8-06 11-21 TABLET BY ity of tablet 00:00: 00:00 [facility] [place] 00 :00 THREE Medical TIMES Branch DAILY CLONIDINE 2020-0 2- No [id number] TAKE 1 U nivers 0.2 mg 8-06 [...] mcg capsule 05-06 BID ity of 00:00: [place] [facility] AMITIZA 24 2020-0 Yes TK 1 C PO Un ally mcg capsule 05-06 BID ity of 00:00: [place] [facility] AMITIZA 24 2020-0 Yes TK 1 C PO Un ally mcg capsule - BID ity of 00:00: [place] [facility] AMITIZA 24 2020-0 Yes TK 1 C PO Un ally mcg capsule - BID ity of 00:00: [place] [facility] AMITIZA 24 2020-0 Yes TK 1 C PO Un ally mcg capsule - BID ity of 00:00: [place] [facility] AMITIZA 24 2020-0 Yes TK 1 C PO Un ally mcg capsule - BID ity of 00:00: [place] 00 [facility] AMITIZA 24 2020-0 Yes TK 1 C PO Un ally mcg capsule 7-06 BID ity of 00:00: [place] [facility] AMITIZA 24 2020-0 Yes TK 1 C PO Un ally mcg capsule -06 BID ity of 00:00: [place] 00 [facility] AMITIZA 24 2020-0 Yes TK 1 C PO Un ally mcg capsule - BID ity of 00:00: [place] [facility] AMITIZA 24 2020-0 Yes TK 1 C PO Un ally mcg capsule 7- BID ity of 00:00: [place] [facility] AMITIZA 24 2019-0 Yes TK 1 C PO Un ally mcg capsule 7- BID ity of 00:00: [place] [facility] AMITIZA 24 2019-0 Yes TK 1 C PO Un ally mcg capsule - BID ity of 00:00: [place] [facility] AMITIZA 24 2019-0 Yes TK 1 C PO Un ally mcg capsule - BID ity of 00:00: [place] [facility] AMITIZA 24 2019-0 Yes TK 1 C PO Un ally mcg capsule - BID ity of 00:00: [place] [facility] AMITIZA 24 2019-0 Yes TK 1 C PO Un ally mcg capsule - BID ity of 00:00: [place] [facility] AMITIZA 24 2019-0 Yes TK 1 C PO Un ally mcg capsule - BID ity of 00:00: [place] [facility] AMITIZA 24 2019-0 Yes TK 1 C PO Un ally mcg capsule - BID ity of 00:00: [place] [facility] AMITIZA 24 2019-0 Yes TK 1 C PO Un ally mcg capsule - BID ity of 00:00: [place] [facility] AMITIZA 24 2019-0 Yes TK 1 C PO Un ally mcg capsule - BID ity of 00:00: [place] [facility] AMITIZA 24 2019-0 Yes TK 1 C PO Un ally mcg capsule - BID ity of 00:00: [place] [facility] AMITIZA 24 2019-0 Yes TK 1 C PO Un ally mcg capsule - BID ity of 00:00: [place] [facility] AMITIZA 24 2019-0 Yes TK 1 C PO Un ally mcg capsule - BID ity of 00:00: [place] [facility] AMITIZA 24 2019-0 Yes TK 1 C PO Un ally mcg capsule - BID ity of 00:00: [place] [facility] AMITIZA 24 2019-0 Yes TK 1 C PO Un ally mcg capsule - BID ity of 00:00: [place] [facility] AMITIZA 24 2019-0 Yes TK 1 C PO Un ally mcg capsule 7- BID ity of 00:00: [place] [facility] AMITIZA 24 2020-0 Yes TK 1 C PO Un ally mcg capsule - BID ity of 00:00: [place] [facility] AMITIZA 24 2020-0 Yes TK 1 C PO Un ally mcg capsule - BID ity of 00:00: [place] [facility] AMITIZA 24 2020-0 Yes TK 1 C PO Un ally mcg capsule 05-06 BID ity of 00:00: [place] [facility] AMITIZA 24 2020-0 Yes TK 1 C PO Un ally mcg capsule 05-06 BID ity of 00:00: [place] [facility] AMITIZA 24 2019-0 Yes TK 1 C PO Un ally mcg capsule 05-06 BID ity of 00:00: [place] [facility] AMITIZA 24 2019-0 Yes TK 1 C PO Un ally mcg capsule 05-06 BID ity of 00:00: [place] [facility] AMITIZA 24 2019-0 Yes TK 1 C PO Un ally mcg capsule 05-06 BID ity of 00:00: [place] [facility] AMITIZA 24 2019-0 Yes TK 1 C PO Un ally mcg capsule 05-06 BID ity of 00:00: [place] [facility] AMITIZA 24 2020-0 Yes TK 1 C PO Un ally mcg capsule 05-06 BID ity of 00:00: [place] [facility] AMITIZA 24 2019-0 Yes TK 1 C PO Un ally mcg capsule 05-06 BID ity of 00:00: [place] [facility] AMITIZA 24 2020-0 Yes TK 1 C PO Un ally mcg capsule 05-06 BID ity of 00:00: [place] [facility] AMITIZA 24 2020-0 Yes TK 1 C PO Un ally mcg capsule 05-06 BID ity of 00:00: [place] [facility] AMITIZA 24 2020-0 Yes TK 1 C PO Un ally mcg capsule - BID ity of 00:00: [place] [facility] AMITIZA 24 2020-0 Yes TK 1 C PO Un ally mcg capsule - BID ity of 00:00: [place] [facility] AMITIZA 24 2020-0 Yes TK 1 C PO Un ally mcg capsule - BID ity of 00:00: [place] [facility] AMITIZA 24 2020-0 Yes TK 1 C PO Un ally mcg capsule - BID ity of 00:00: [place] 00 [facility] AMITIZA 24 2020-0 Yes TK 1 C PO Un ally mcg capsule - BID ity of 00:00: [place] [facility] AMITIZA 24 2019-0 Yes TK 1 C PO Un ally mcg capsule - BID ity of 00:00: [place] [facility] AMITIZA 24 2020-0 Yes TK 1 C PO Un ally mcg capsule - BID ity of 00:00: [place] [facility] AMITIZA 24 2019-0 Yes TK 1 C PO Un ally mcg capsule 05-06 BID ity of 00:00: [place] [facility] AMITIZA 24 2019-0 Yes TK 1 C PO Un ally mcg capsule 05-06 BID ity of 00:00: [place] [facility] AMITIZA 24 2019-0 Yes TK 1 C PO Un ally mcg capsule 05-06 BID ity of 00:00: [place] [facility] AMITIZA 24 2019-0 Yes TK 1 C PO Un ally mcg capsule 05-06 BID ity of 00:00: [place] [facility] Branch AMITIZA 24 2019-0 Yes TK 1 C PO Un ally mcg capsule 05-06 BID ity of 00:00: [facility] AMITIZA 24 2019-0 Yes TK 1 C PO Un ally mcg capsule 05-06 BID ity of 00:00: [facility] AMITIZA 24 2019-0 Yes TK 1 C PO Un ally mcg capsule 05-06 BID ity of 00:00: [facility] AMITIZA 24 2020-0 Yes TK 1 C PO Un ally mcg capsule 05-06 BID ity of 00:00: [facility] AMITIZA 24 2020-0 Yes TK 1 C PO Un ally mcg capsule - BID ity of 00:00: [facility] AMITIZA 24 2020-0 Yes TK 1 C PO Un ally mcg capsule - BID ity of 00:00: [facility] AMITIZA 24 2019-0 Yes TK 1 C PO Un ally mcg capsule - BID ity of 00:00: [facility] AMITIZA 24 2020-0 Yes TK 1 C PO Un ally mcg capsule - BID ity of 00:00: [facility] AMITIZA 24 2020-0 Yes TK [...] mg 09:53: mouth [place] tablet 14 daily. [facility] ALPRAZolam 0 Yes 2mg Take 2 mg Un ally (XANAX) 8-28 by mouth ity of 0.25 mg 09:53: every 6 [place] tablet 14 (six) Medical hours as Branch needed. allopurinol [id number] Yes 100mg Take 100 U nivers (ZYLOPRIM) 8-28 mg by ity of 100 mg 09:53: mouth [place] tablet 14 daily. [facility] ALPRAZolam 0 Yes 2mg Take 2 [...] mg 09:53: mouth [place] tablet 14 daily. [facility] ALPRAZolam 2019-0 Yes 2mg Take 2 mg [facility] (XANAX) 8-28 by mouth ity of 0.25 mg 09:53: every 6 [place] tablet 14 (six) Medical hours as Branch needed. allopurinol 2019-0 Yes 100mg Take 100 U nivers (ZYLOPRIM) 8-28 mg by ity of 100 mg 09:53: mouth [place] tablet 14 daily. [facility] ALPRAZolam 2019-0 Yes 2mg Take 2 [...] mg 09:53: mouth [place] tablet 14 daily. [facility] ALPRAZolam 2019-0 Yes 2mg Take 2 mg Un [facility] (XANAX) 8-28 by mouth ity of 0.25 mg 09:53: every 6 [place] tablet 14 (six) Medical hours as Branch needed. allopurinol 2019-0 Yes 100mg Take 100 U nivers (ZYLOPRIM) 8-28 mg by ity of 100 mg 09:53: mouth [place] tablet 14 daily. [facility] ALPRAZolam 2019-0 Yes 2mg Take 2 mg [facility] (XANAX) 8-28 by mouth ity of 0.25 mg 09:53: every 6 [place] tablet 14 (six) Medical hours as Branch needed. allopurinol 2019-0 Yes 100mg Take 100 U nivers (ZYLOPRIM) 8-28 mg by ity of 100 mg 09:53: mouth [place] tablet 14 daily. [facility] ALPRAZolam 2019-0 Yes 2mg Take 2 mg Un [facility] (XANAX) 8-28 by mouth ity of 0.25 mg 09:53: every 6 [place] tablet 14 (six) Medical hours as Branch needed. allopurinol 2019-0 Yes 100mg Take 100 U nivers (ZYLOPRIM) 8-28 mg by ity of 100 mg 09:53: mouth [place] tablet 14 daily. [facility] ALPRAZolam 2019-0 Yes 2mg Take 2 mg Un [facility] (XANAX) 8-28 by mouth ity of 0.25 mg 09:53: every 6 [place] tablet 14 (six) Medical hours as Branch needed. allopurinol 2019-0 Yes 100mg Take 100 U nivers (ZYLOPRIM) 8-28 mg by ity of 100 mg 09:53: mouth [place] tablet 14 daily. [facility] ALPRAZolam 2019-0 Yes 2mg Take 2 [...] mg 09:53: mouth [place] tablet 14 daily. [facility] ALPRAZolam 2019-0 Yes 2mg Take 2 mg Un [facility] (XANAX) 8-28 by mouth ity of 0.25 mg 09:53: every 6 [place] tablet 14 (six) Medical hours as Branch needed. allopurinol 2019-0 Yes 100mg Take 100 U nivers (ZYLOPRIM) 8-28 mg by ity of 100 mg 09:53: mouth [place] tablet 14 daily. [facility] ALPRAZolam 2019-0 Yes 2mg Take 2 mg [facility] (XANAX) 8-28 by mouth ity of 0.25 mg 09:53: every 6 [place] tablet 14 (six) Medical hours as Branch needed. allopurinol 2019-0 Yes 100mg Take 100 U nivers (ZYLOPRIM) 8-28 mg by ity of 100 mg 09:53: mouth [place] tablet 14 daily. [facility] ALPRAZolam 2019-0 Yes 2mg Take 2 mg [facility] (XANAX) 8-28 by mouth ity of 0.25 mg 09:53: every 6 [place] tablet 14 (six) Medical hours as Branch needed. allopurinol 2019-0 Yes 100mg Take 100 U nivers (ZYLOPRIM) 8-28 mg by ity of 100 mg 09:53: mouth [place] tablet 14 daily. [facility] ALPRAZolam 2019-0 Yes 2mg Take 2 mg Un [facility] (XANAX) 8-28 by mouth ity of 0.25 mg 09:53: every 6 [place] tablet 14 (six) Medical hours as Branch needed. allopurinol 2019-0 Yes 100mg Take 100 U nivers (ZYLOPRIM) 8-28 mg by ity of 100 mg 09:53: mouth [place] tablet 14 daily. [facility] ALPRAZolam 2019-0 Yes 2mg Take 2 [...] Medical hours as Branch needed. atorvastati Yes [id number] 40mg Take 1 [facility] 40 mg 5-28 tablet by ity of tablet 00:00: mouth [place] 00 every Medical evening. Branch atorvastati Yes [id number] 40mg Take 1 [facility] n 40 mg 5-28 tablet by ity of tablet 00:00: mouth [place] 00 every Medical evening. Branch atorvastati Yes [id number] 40mg Take 1 [facility] n 40 mg 5-28 tablet by ity of tablet 00:00: mouth [place] 00 every Medical evening. Branch atorvastati Yes [id number] 40mg Take 1 [facility] n 40 mg 5-28 tablet by ity of tablet 00:00: mouth [place] 00 every Medical evening. Branch atorvastati Yes [id number] 40mg Take 1 [facility] n 40 mg 5-28 tablet by ity of tablet 00:00: mouth [place] 00 every Medical evening. Branch atorvastati Yes [id number] 40mg Take 1 [facility] n 40 mg 5-28 tablet by ity of tablet 00:00: mouth [place] 00 every Medical evening. Branch atorvastati Yes [id number] 40mg Take 1 [facility] n 40 mg 5-28 tablet by ity of tablet 00:00: mouth [place] 00 every Medical evening. Branch atorvastati Yes [id number] 40mg Take 1 [facility] n 40 mg 5-28 tablet by ity of tablet 00:00: mouth [place] 00 every Medical evening. Branch atorvastati Yes [id number] 40mg Take 1 [facility] n 40 mg 5-28 tablet by ity of tablet 00:00: mouth [place] 00 every Medical evening. [place] atorvastati Yes [id number] 40mg Take 1 [facility] n 40 mg 5-28 tablet by ity of tablet 00:00: mouth [place] 00 every Medical evening. [place] atorvastati Yes [id number] 40mg Take 1 [facility] n 40 mg 5-28 tablet by ity of tablet 00:00: mouth [place] 00 every Medical evening. [place] atorvasta Yes [id number] 40mg Take 1 [facility] n 40 mg 5-28 tablet by ity of tablet 00:00: mouth [place] 00 every Medical evening. [place] atorvasta Yes [id number] 40mg Take 1 [facility] n 40 mg 5-28 tablet by ity of tablet 00:00: mouth [place] 00 every Medical evening. [place] atorvasta Yes [id number] 40mg Take 1 [facility] n 40 mg 5-28 tablet by ity of tablet 00:00: mouth [place] 00 every Medical evening. [place] atorvasta Yes [id number] 40mg Take 1 [facility] n 40 mg 5-28 tablet by ity of tablet 00:00: mouth [place] 00 every Medical evening. [place] atorvastati Yes [id number] 40mg Take 1 [facility] n 40 mg 5-28 tablet by ity of tablet 00:00: mouth [place] 00 every Medical evening. [place] atorvastati Yes [id number] 40mg Take 1 [facility] n 40 mg 5-28 tablet by ity of tablet 00:00: mouth [place] 00 every Medical evening. [place] atorvastati Yes [id number] 40mg Take 1 [facility] n 40 mg 5-28 tablet by ity of tablet 00:00: mouth [place] 00 every Medical evening. [place] atorvastati Yes [id number] 40mg Take 1 [facility] n 40 mg 5-28 tablet by ity of tablet 00:00: mouth [place] 00 every Medical evening. [place] atorvastati Yes [id number] 40mg Take 1 [facility] n 40 mg 5-28 tablet by ity of tablet 00:00: mouth [place] 00 every Medical evening. [place] atorvasta Yes [id number] 40mg Take 1 [facility] n 40 mg 5-28 tablet by ity of tablet 00:00: mouth [place] 00 every Medical evening. [place] atorvastati 0 Yes [id number] 40mg Take 1 [facility] n 40 mg 5-28 tablet by ity of tablet 00:00: mouth [place] 00 every Medical evening. [place] atorvastati 0 Yes [id number] 40mg Take 1 [facility] n 40 mg 5-28 tablet by ity of tablet 00:00: mouth [place] 00 every Medical evening. [place] atorvastati Yes [id number] 40mg Take 1 [facility] n 40 mg 5-28 tablet by ity of tablet 00:00: mouth [place] 00 every Medical evening. [place] atorvastati Yes [id number] 40mg Take 1 [facility] n 40 mg 5-28 tablet by ity of tablet 00:00: mouth [place] 00 every Medical evening. [place] atorvastati Yes [id number] 40mg Take 1 [facility] n 40 mg 5-28 tablet by ity of tablet 00:00: mouth [place] 00 every Medical evening. [place] atorvastati Yes [id number] 40mg Take 1 [facility] n 40 mg 5-28 tablet by ity of tablet 00:00: mouth [place] 00 every Medical evening. [place] atorvastati Yes [id number] 40mg Take 1 [facility] n 40 mg 5-28 tablet by ity of tablet 00:00: mouth [place] 00 every Medical evening. [place] atorvastati 0 Yes [id number] 40mg Take 1 [facility] n 40 mg 5-28 tablet by ity of tablet 00:00: mouth [place] 00 every Medical evening. [place] atorvastati 0 Yes [id number] 40mg Take 1 [facility] n 40 mg 5-28 tablet by ity of tablet 00:00: mouth [place] 00 every Medical evening. [place] atorvastati 0 Yes [id number] 40mg Take 1 [facility] n 40 mg 5-28 tablet by ity of tablet 00:00: mouth [place] 00 every Medical evening. [place] atorvastati 0 Yes [id number] 40mg Take 1 [facility] n 40 mg 5-28 tablet by ity of tablet 00:00: mouth [place] 00 every Medical evening. [place] atorvastati Yes [id number] 40mg Take 1 [facility] n 40 mg 5-28 tablet by ity of tablet 00:00: mouth [place] 00 every Medical evening. Branch atorvastati 2021- No [id number] 40mg Take 1 [facility] n 40 mg 5-28 11-21 tablet by ity of tablet 00:00: 00:00 mouth [place] 00 :00 every Medical evening. Branch atorvastati 2021- No [id number] 40mg Take 1 [facility] n 40 mg [...] Branch amLODIPine 2017-11- No 10mg Take 1 [facility] ([facility]) 11-28 11-21 tablet by ity of 10 mg 00:00: 00:00 mouth [place] tablet 00 :00 daily. Medical Branch Cholecalcif 2017-11 Yes [id number] Take 1 Un ally alayna, 0-01 capsule by ity of Vitamin D3, 00:00: mouth [place] 50,000 unit 00 weekly. Medic al capsule Branch Cholecalcif 2017-11 Yes [id number] Take 1 Un ally alayna, 0-01 capsule by ity of Vitamin D3, 00:00: mouth [place] 50,000 unit 00 weekly. Medic al capsule Branch Cholecalcif 2017-11 Yes [id number] Take 1 Un ally alayna, 0-01 capsule by ity of Vitamin D3, 00:00: mouth [place] 50,000 unit 00 weekly. Medic al capsule Branch Cholecalcif 2017-11 Yes [id number] Take 1 Un ally alayna, 0-01 capsule by ity of Vitamin D3, 00:00: mouth [place] 50,000 unit 00 weekly. Medic al capsule Branch Cholecalcif 2017-11 Yes [id number] Take 1 Un ally alayna, 0-01 capsule by ity of Vitamin D3, 00:00: mouth [place] 50,000 unit 00 weekly. Medic al capsule Branch Cholecalcif 2017-11 Yes [id number] Take 1 Un ally alayna, 0-01 capsule by ity of Vitamin D3, 00:00: mouth [place] 50,000 unit 00 weekly. Medic al capsule Branch Cholecalcif 2017-11 Yes [id number] Take 1 Un ally alayna, 0-01 capsule by ity of Vitamin D3, 00:00: mouth [place] 50,000 unit 00 weekly. Medic al capsule Branch Cholecalcif 2017-11 Yes [id number] Take 1 Un ally alayna, 0-01 capsule by ity of Vitamin D3, 00:00: mouth [place] 50,000 unit 00 weekly. Medic al capsule Branch Cholecalcif 2017-11 Yes [id number] Take 1 Un ally alayna, 0-01 capsule by ity of Vitamin D3, 00:00: mouth [place] 50,000 unit 00 weekly. Medic al capsule Branch Cholecalcif 2017-11 Yes [id number] Take 1 Un ally alayna, 0-01 capsule by ity of Vitamin D3, 00:00: mouth [place] 50,000 unit 00 weekly. Medic al capsule Branch Cholecalcif 2017-11 Yes [id number] Take 1 Un ally alayna, 0-01 capsule by ity of Vitamin D3, 00:00: mouth [place] 50,000 unit 00 weekly. Medic al capsule Branch Cholecalcif 2017-11 Yes [id number] Take 1 Un ally alayna, 0-01 capsule by ity of Vitamin D3, 00:00: mouth [place] 50,000 unit 00 weekly. Medic al capsule Branch Cholecalcif 2017-11 Yes [id number] Take 1 Un ally alayna, 0-01 capsule by ity of Vitamin D3, 00:00: mouth [place] 50,000 unit 00 weekly. Medic al capsule Branch Cholecalcif 2017-11 Yes [id number] Take 1 Un ally alayna, 0-01 capsule by ity of Vitamin D3, 00:00: mouth [place] 50,000 unit 00 weekly. Medic al capsule Branch Cholecalcif 2017-11 Yes [id number] Take 1 Un ally alayna, 0-01 capsule by ity of Vitamin D3, 00:00: mouth [place] 50,000 unit 00 weekly. Medic al capsule Branch Cholecalcif 2017-11 Yes [id number] Take 1 Un ally alayna, 0-01 capsule by ity of Vitamin D3, 00:00: mouth [place] 50,000 unit 00 weekly. Medic al capsule Branch Cholecalcif 2017-11 Yes [id number] Take 1 Un ally alayna, 0-01 capsule by ity of Vitamin D3, 00:00: mouth [place] 50,000 unit 00 weekly. Medic al capsule Branch Cholecalcif 2017-11 Yes [id number] Take 1 Un ally alayna, 0-01 capsule by ity of Vitamin D3, 00:00: mouth [place] 50,000 unit 00 weekly. Medic al capsule Branch Cholecalcif 2017-11 Yes [id number] Take 1 Un ally alayna, 0-01 capsule by ity of Vitamin D3, 00:00: mouth [place] 50,000 unit 00 weekly. Medic al capsule Branch Cholecalcif 2017-11 Yes [id number] Take 1 Un ally alayna, 0-01 capsule by ity of Vitamin D3, 00:00: mouth [place] 50,000 unit 00 weekly. Medic al capsule Branch Cholecalcif 2017-11 Yes [id number] Take 1 Un ally alayna, 0-01 capsule by ity of Vitamin D3, 00:00: mouth [place] 50,000 unit 00 weekly. Medic al capsule Branch Cholecalcif 2017-11 Yes [id number] Take 1 Un ally alayna, 0-01 capsule by ity of Vitamin D3, 00:00: mouth [place] 50,000 unit 00 weekly. Medic al capsule Branch Cholecalcif 2017-11 Yes [id number] Take 1 Un ally alayna, 0-01 capsule by ity of Vitamin D3, 00:00: mouth [place] 50,000 unit 00 weekly. Medic al capsule Branch Cholecalcif 2017-11 Yes [id number] Take 1 Un ally alayna, 0-01 capsule by ity of Vitamin D3, 00:00: mouth [place] 50,000 unit 00 weekly. Medic al capsule Branch Cholecalcif 2017-11 Yes [id number] Take 1 Un ally alayna, 0-01 capsule by ity of Vitamin D3, 00:00: mouth [place] 50,000 unit 00 weekly. Medic al capsule Branch Cholecalcif 2017-11 Yes [id number] Take 1 Un ally alayna, 0-01 capsule by ity of Vitamin D3, 00:00: mouth [place] 50,000 unit 00 weekly. Medic al capsule Branch Cholecalcif 2017-11 Yes [id number] Take 1 Un ally alayna, 0-01 capsule by ity of Vitamin D3, 00:00: mouth [place] 50,000 unit 00 weekly. Medic al capsule Branch Cholecalcif 2017-11 Yes [id number] Take 1 Un ally alayna, 0-01 capsule by ity of Vitamin D3, 00:00: mouth [place] 50,000 unit 00 weekly. Medic al capsule Branch Cholecalcif 2017-11 Yes [id number] Take 1 Un ally alayna, 0-01 capsule by ity of Vitamin D3, 00:00: mouth [place] 50,000 unit 00 weekly. Medic al capsule Branch Cholecalcif 2017-11 Yes [id number] Take 1 Un ally alayna, 0-01 capsule by ity of Vitamin D3, 00:00: mouth [place] 50,000 unit 00 weekly. Medic al capsule Branch Cholecalcif 2017-11 Yes [id number] Take 1 Un ally alayna, 0-01 capsule by ity of Vitamin D3, 00:00: mouth [place] 50,000 unit 00 weekly. Medic al capsule Branch Cholecalcif 2017-11 Yes [id number] Take 1 Un ally alayna, 0-01 capsule by ity of Vitamin D3, 00:00: mouth [place] 50,000 unit 00 weekly. Medic al capsule Branch Cholecalcif 2017-11 Yes [id number] Take 1 Un ally alayna, 0-01 capsule by ity of Vitamin D3, 00:00: mouth [place] 50,000 unit 00 weekly. Medic al capsule Branch Cholecalcif 2017-11 Yes [id number] Take 1 Un ally alayna, 0-01 capsule by ity of Vitamin D3, 00:00: mouth [place] 50,000 unit 00 weekly. Medic al capsule Branch Cholecalcif 2017-11 Yes [id number] Take 1 Un ally alayna, 0-01 capsule by ity of Vitamin D3, 00:00: mouth [place] 50,000 unit 00 weekly. Medic al capsule Branch Cholecalcif 2017-11 Yes [id number] Take 1 Un ally alayna, 0-01 capsule by ity of Vitamin D3, 00:00: mouth [place] 50,000 unit 00 weekly. Medic al capsule Branch Cholecalcif 2017-11 Yes [id number] Take 1 Un ally alayna, 0-01 capsule by ity of Vitamin D3, 00:00: mouth [place] 50,000 unit 00 weekly. Medic al capsule Branch Cholecalcif 2017-11 Yes [id number] Take 1 Un ally alayna, 0-01 capsule by ity of Vitamin D3, 00:00: mouth [place] 50,000 unit 00 weekly. Medic al capsule Branch Cholecalcif 2017-11 Yes [id number] Take 1 Un ally alayna, 0-01 capsule by ity of Vitamin D3, 00:00: mouth [place] 50,000 unit 00 weekly. Medic al capsule Branch Cholecalcif 2017-11 Yes [id number] Take 1 Un ally alayna, 0-01 capsule by ity of Vitamin D3, 00:00: mouth [place] 50,000 unit 00 weekly. Medic al capsule Branch Cholecalcif 2017-11 Yes [id number] Take 1 Un ally alayna, 0-01 capsule by ity of Vitamin D3, 00:00: mouth [place] 50,000 unit 00 weekly. Medic al capsule Branch Cholecalcif 2017-11 Yes [id number] Take 1 Un ally alayna, 0-01 capsule by ity of Vitamin D3, 00:00: mouth [place] 50,000 unit 00 weekly. Medic al capsule Branch Cholecalcif 2017-11 Yes [id number] Take 1 Un ally alayna, 0-01 capsule by ity of Vitamin D3, 00:00: mouth [place] 50,000 unit 00 weekly. Medic al capsule Branch Cholecalcif 2017-11 Yes [id number] Take 1 Un ally alayna, 0-01 capsule by ity of Vitamin D3, 00:00: mouth [place] 50,000 unit 00 weekly. Medic al capsule Branch Cholecalcif 2017-11 Yes [id number] Take 1 Un ally alayna, 0-01 capsule by ity of Vitamin D3, 00:00: mouth [place] 50,000 unit 00 weekly. Medic al capsule Branch Cholecalcif 2017-11 Yes [id number] Take 1 Un ally alayna, 0-01 capsule by ity of Vitamin D3, 00:00: mouth [place] 50,000 unit 00 weekly. Medic al capsule Branch Cholecalcif 2017-11 Yes [id number] Take 1 Un ally alayna, 0-01 capsule by ity of Vitamin D3, 00:00: mouth [place] 50,000 unit 00 weekly. Medic al capsule Branch Cholecalcif 2017-11 Yes [id number] Take 1 Un ally alayna, 0-01 capsule by ity of Vitamin D3, 00:00: mouth [place] 50,000 unit 00 weekly. Medic al capsule Branch Cholecalcif 2017-11 Yes [id number] Take 1 Un ally alayna, 0-01 capsule by ity of Vitamin D3, 00:00: mouth [place] 50,000 unit 00 weekly. Medic al capsule Branch Cholecalcif 2017-11 Yes [id number] Take 1 Un ally alayna, 0-01 capsule by ity of Vitamin D3, 00:00: mouth [place] 50,000 unit 00 weekly. Medic al capsule Branch Cholecalcif 2017-11 Yes [id number] Take 1 Un ally alayna, 0-01 capsule by ity of Vitamin D3, 00:00: mouth [place] 50,000 unit 00 weekly. Medic al capsule Branch Cholecalcif 2017-11 Yes [id number] Take 1 Un ally alayna, 0-01 capsule by ity of Vitamin D3, 00:00: mouth [place] 50,000 unit 00 weekly. Medic al capsule Branch Cholecalcif 2017-11 Yes [id number] Take 1 Un ally alayna, 0-01 capsule by ity of Vitamin D3, 00:00: mouth [place] 50,000 unit 00 weekly. Medic al capsule Branch Cholecalcif 2017-11 Yes [id number] Take 1 Un ally alayna, 0-01 capsule by ity of Vitamin D3, 00:00: mouth [place] 50,000 unit 00 weekly. Medic al capsule Branch Cholecalcif 2017-11 Yes [id number] Take 1 Un ally alayna, 0-01 capsule by ity of Vitamin D3, 00:00: mouth [place] 50,000 unit 00 weekly. Medic al capsule Branch Cholecalcif 2017-11 Yes [id number] Take 1 Un ally alayna, 0-01 capsule by ity of Vitamin D3, 00:00: mouth [place] 50,000 unit 00 weekly. Medic al capsule Branch Cholecalcif 2017-11 Yes [id number] Take 1 Un ally alayna, 0-01 capsule by ity of Vitamin D3, 00:00: mouth [place] 50,000 unit 00 weekly. Medic al capsule Branch Cholecalcif 2017-11 Yes [id number] Take 1 Un ally alayna, 0-01 capsule by ity of Vitamin D3, 00:00: mouth [place] 50,000 unit 00 weekly. Medic al capsule Branch Cholecalcif 2017-11 Yes [id number] Take 1 Un ally alayna, 0-01 capsule by ity of Vitamin D3, 00:00: mouth [place] 50,000 unit 00 weekly. Medic al capsule Branch Cholecalcif 2017-11 Yes [id number] Take 1 Un ally alayna, 0-01 capsule by ity of Vitamin D3, 00:00: mouth [place] 50,000 unit 00 weekly. Medic al capsule Branch Lactated No 1,000 mL, [place] j[facility] Ringers IV 04-04 Rate: 40 l 1,000 mL 19:14: ml/hr, [place] 00 Infuse over: 25 hr, Route: IV, Dosing Weight 141.364 kg, Total Volume: 1,000, Start date: 04/04/18 14:14:00 CDT, Duration: 30 day, Stop date: 05/04/18 14:13:00 CDT, 2.56, m2 Lactated No 1,000 mL, [facility]ers IV 04-04 Rate: 40 l 1,000 mL 19:14: ml/hr, [place] 00 Infuse over: 25 hr, Route: IV, Dosing Weight 141.364 kg, Total Volume: 1,000, Start date: 04/04/18 14:14:00 CDT, Duration: 30 day, Stop date: 05/04/18 14:13:00 CDT, 2.56, m2 Lactated 2018-0 No 1,000 mL, [facility] IV 6-04 Rate: 40 l 1,000 mL 19:14: ml/hr, [place] 00 Infuse over: 25 hr, Route: IV, Dosing Weight 141.364 kg, Total Volume: 1,000, Start date: 04/04/18 14:14:00 CDT, Duration: 30 day, Stop date: 05/04/18 14:13:00 CDT, 2.56, m2 Lactated 2018-0 No 1,000 mL, [facility]ers IV 6-04 Rate: 40 l 1,000 mL 19:14: ml/hr, [place] 00 Infuse over: 25 hr, Route: IV, Dosing Weight 141.364 kg, Total Volume: 1,000, Start date: 04/04/18 14:14:00 CDT, Duration: 30 day, Stop date: 05/04/18 14:13:00 CDT, 2.56, m2 Lactated 2018-0 No 1,000 mL, [facility] IV 6-04 Rate: 40 l 1,000 mL 19:14: ml/hr, [place] 00 Infuse over: 25 hr, Route: IV, [...] Rate: 40 l 1,000 mL 19:14: ml/hr, [place] 00 Infuse over: 25 hr, Route: [...] Rate: 40 l 1,000 mL 19:14: ml/hr, [place] 00 Infuse over: 25 hr, Route: [...] Rate: 40 l 1,000 mL 19:14: ml/hr, [place] 00 Infuse over: 25 hr, Route: [...] Rate: 40 l 1,000 mL 19:14: ml/hr, [place] 00 Infuse over: 25 hr, Route: IV, Dosing Weight 141.364 kg, Total Volume: 1,000, Start date: 04/04/18 14:14:00 CDT, Duration: 30 day, Stop date: 05/04/18 14:13:00 CDT, 2.56, m2 Lactated 2018-0 No 1,000 mL, [facility]ers IV 6-04 Rate: 40 l 1,000 mL 19:14: ml/hr, [place] 00 Infuse over: 25 hr, Route: [...] m2 Lactated 2018-0 No 1,000 mL, [place] [facility] Ringers IV 6-04 Rate: 40 l 1,000 mL 19:14: ml/hr, [place] 00 Infuse over: 25 hr, Route: [...] Rate: 40 l 1,000 mL 19:14: ml/hr, [place] 00 Infuse over: 25 hr, Route: [...] Rate: 40 l 1,000 mL 19:14: ml/hr, [place] 00 Infuse over: 25 hr, Route: IV, Dosing Weight 141.364 kg, Total Volume: 1,000, Start date: 04/04/18 14:14:00 CDT, Duration: 30 day, Stop date: 05/04/18 14:13:00 CDT, 2.56, m2 Lactated 2018-0 No 1,000 mL, [facility]ers IV 6-04 Rate: 40 l 1,000 mL 19:14: ml/hr, [place] 00 Infuse over: 25 hr, Route: [...] Rate: 40 l 1,000 mL 19:14: ml/hr, [place] 00 Infuse over: 25 hr, Route: [...] Rate: 40 l 1,000 mL 19:14: ml/hr, [place] 00 Infuse over: 25 hr, Route: IV, Dosing Weight 141.364 kg, Total Volume: 1,000, Start date: 04/04/18 14:14:00 CDT, Duration: 30 day, Stop date: 05/04/18 14:13:00 CDT, 2.56, m2 Lactated 2018-0 No 1,000 mL, [place] [facility]ers IV 6-04 Rate: 40 l 1,000 mL 19:14: ml/hr, [place] 00 Infuse over: 25 hr, Route: IV, Dosing Weight 141.364 kg, Total Volume: 1,000, Start date: 04/04/18 14:14:00 CDT, Duration: 30 day, Stop date: 05/04/18 14:13:00 CDT, 2.56, m2 Lactated 2018-0 No 1,000 mL, [place] [facility] IV 6-04 Rate: 40 l 1,000 mL 19:14: ml/hr, [place] 00 Infuse over: 25 hr, Route: IV, Dosing Weight 141.364 kg, Total Volume: 1,000, Start date: 04/04/18 14:14:00 CDT, Duration: 30 day, Stop date: 05/04/18 14:13:00 CDT, 2.56, m2 Lactated 2018-0 No 1,000 mL, [place] [facility] IV 6-04 Rate: 40 l 1,000 mL 19:14: ml/hr, [place] 00 Infuse over: 25 hr, Route: [...] Rate: 40 l 1,000 mL 19:14: ml/hr, [place] 00 Infuse over: 25 hr, Route: IV, Dosing Weight 141.364 kg, Total Volume: 1,000, Start date: 04/04/18 14:14:00 CDT, Duration: 30 day, Stop date: 05/04/18 14:13:00 CDT, 2.56, m2 Lactated 2018-0 No 1,000 mL, [place] [facility] IV 6-04 Rate: 40 l 1,000 mL 19:14: ml/hr, [place] 00 Infuse over: 25 hr, Route: [...] Rate: 40 l 1,000 mL 19:14: ml/hr, [place] 00 Infuse over: 25 hr, Route: IV, Dosing Weight 141.364 kg, Total Volume: 1,000, Start date: 04/04/18 14:14:00 CDT, Duration: 30 day, Stop date: 05/04/18 14:13:00 CDT, 2.56, m2 Lactated 2018-0 No 1,000 mL, [place] [facility] IV 6-04 Rate: 40 l 1,000 mL 19:14: ml/hr, [place] 00 Infuse over: 25 hr, Route: IV, Dosing Weight 141.364 kg, Total Volume: 1,000, Start date: 04/04/18 14:14:00 CDT, Duration: 30 day, Stop date: 05/04/18 14:13:00 CDT, 2.56, m2 Lactated 2018-0 No 1,000 mL, [place] [facility]ers IV 6-04 Rate: 40 l 1,000 mL 19:14: ml/hr, [place] 00 Infuse over: 25 hr, Route: IV, Dosing Weight 141.364 kg, Total Volume: 1,000, Start date: 04/04/18 14:14:00 CDT, Duration: 30 day, Stop date: 05/04/18 14:13:00 CDT, 2.56, m2 Lactated 2018-0 No 1,000 mL, [place] [facility]ers IV 6-04 Rate: 40 l 1,000 mL 19:14: ml/hr, [place] 00 Infuse over: 25 hr, Route: [...] Rate: 40 l 1,000 mL 19:14: ml/hr, [place] 00 Infuse over: 25 hr, Route: IV, Dosing Weight 141.364 kg, Total Volume: 1,000, Start date: 04/04/18 14:14:00 CDT, Duration: 30 day, Stop date: 05/04/18 14:13:00 CDT, 2.56, m2 Lactated 2018-0 No 1,000 mL, [place] [facility]ers IV 6-04 Rate: 40 l 1,000 mL 19:14: ml/hr, [place] 00 Infuse over: 25 hr, Route: IV, Dosing Weight 141.364 kg, Total Volume: 1,000, Start date: 04/04/18 14:14:00 CDT, Duration: 30 day, Stop date: 05/04/18 14:13:00 CDT, 2.56, m2 Lactated 2018-0 No 1,000 mL, [place] [facility]ers IV 6-04 Rate: 40 l 1,000 mL 19:14: ml/hr, [place] 00 Infuse over: 25 hr, Route: IV, Dosing Weight 141.364 kg, Total Volume: 1,000, Start date: 04/04/18 14:14:00 CDT, Duration: 30 day, Stop date: 05/04/18 14:13:00 CDT, 2.56, m2 Lactated 2018-0 No 1,000 mL, Dillon jenna Ringers IV 6-04 Rate: 40 l 1,000 mL 19:14: ml/hr, [place] 00 Infuse over: 25 hr, Route: IV, Dosing Weight 141.364 kg, Total Volume: 1,000, Start date: 04/04/18 14:14:00 CDT, Duration: 30 day, Stop date: 05/04/18 14:13:00 CDT, 2.56, m2 Lactated 2018-0 No 1,000 mL, [facility] jenna Ringers IV 6-04 Rate: 40 l 1,000 mL 19:14: ml/hr, [place] 00 Infuse over: 25 hr, Route: [...] Rate: 40 l 1,000 mL 19:14: ml/hr, [place] 00 Infuse over: 25 hr, Route: [...] No 1,000 mL, [facility] jenna Ringers IV 6- Rate: 40 l 1,000 mL 19:14: ml/hr, [place] 00 Infuse over: 25 hr, Route: IV, Dosing Weight 141.364 kg, Total Volume: 1,000, Start date: 04/04/18 14:14:00 CDT, Duration: 30 day, Stop date: 05/04/18 14:13:00 CDT, 2.56, m2 Lactated 2018-0 No 1,000 mL, [facility] jenna Ringers IV 6- Rate: 40 l 1,000 mL 19:14: ml/hr, [place] 00 Infuse over: 25 hr, Route: IV, Dosing Weight 141.364 kg, Total Volume: 1,000, Start date: 04/04/18 14:14:00 CDT, Duration: 30 day, Stop date: 05/04/18 14:13:00 CDT, 2.56, m2 Lactated 2018-0 No 1,000 mL, [facility] jenna Ringers IV 6- Rate: 40 l 1,000 mL 19:14: ml/hr, [place] 00 Infuse over: 25 hr, Route: IV, Dosing Weight 141.364 kg, Total Volume: 1,000, Start date: 04/04/18 14:14:00 CDT, Duration: 30 day, Stop date: 05/04/18 14:13:00 CDT, 2.56, m2 Lactated 2018-0 No 1,000 mL, [facility] jenna Ringers IV 6- Rate: 40 l 1,000 mL 19:14: ml/hr, [place] 00 Infuse over: 25 hr, Route: [...] Rate: 40 l 1,000 mL 19:14: ml/hr, [place] 00 Infuse over: 25 hr, Route: [...] Rate: 40 l 1,000 mL 19:14: ml/hr, [place] 00 Infuse over: 25 hr, Route: IV, Dosing Weight 141.364 kg, Total Volume: 1,000, Start date: 04/04/18 14:14:00 CDT, Duration: 30 day, Stop date: 05/04/18 14:13:00 CDT, 2.56, m2 Lactated 2018-0 No 1,000 mL, [facility] jenna Ringers IV 6-04 Rate: 40 l 1,000 mL 19:14: ml/hr, [place] 00 Infuse over: 25 hr, Route: IV, Dosing Weight 141.364 kg, Total Volume: 1,000, Start date: 04/04/18 14:14:00 CDT, Duration: 30 day, Stop date: 05/04/18 14:13:00 CDT, 2.56, m2 Lactated 2018-0 No 1,000 mL, [facility] jenna Ringers IV 6-04 Rate: 40 l 1,000 mL 19:14: ml/hr, [place] 00 Infuse over: 25 hr, Route: [...] Rate: 40 l 1,000 mL 19:14: ml/hr, [place] 00 Infuse over: 25 hr, Route: [...] Rate: 40 l 1,000 mL 19:14: ml/hr, [place] 00 Infuse over: 25 hr, Route: [...] Rate: 40 l 1,000 mL 19:14: ml/hr, [place] 00 Infuse over: 25 hr, Route: IV, Dosing Weight 141.364 kg, Total Volume: 1,000, Start date: 04/04/18 14:14:00 CDT, Duration: 30 day, Stop date: 05/04/18 14:13:00 CDT, 2.56, m2 Lactated 2018-0 No 1,000 mL, [facility] jenna Ringers IV 6-04 Rate: 40 l 1,000 mL 19:14: ml/hr, [place] 00 Infuse over: 25 hr, Route: IV, Dosing Weight 141.364 kg, Total Volume: 1,000, Start date: 04/04/18 14:14:00 CDT, Duration: 30 day, Stop date: 05/04/18 14:13:00 CDT, 2.56, m2 Lactated 2018-0 No 1,000 mL, [place] j[facility] Ringers IV 6- Rate: 40 l 1,000 [...] 70/30 5-15 SUB-Q, l 18:44: QPM, 0 [place] 00 Refill(s) Humulin 2018-0 Yes 60 unit, [facility] a 70/30 5-15 SUB-Q, l 18:44: QPM, 0 [place] 00 Refill(s) Humulin 2018-0 Yes 60 unit, [facility] a 70/30 5-15 SUB-Q, l 18:44: QPM, 0 [place] 00 Refill(s) Humulin 2018-0 Yes 60 unit, [facility] a 70/30 5-15 SUB-Q, l 18:44: QPM, 0 [place] 00 Refill(s) Humulin 2018-0 Yes 60 [...] 70/30 5-15 SUB-Q, l 18:44: QPM, 0 [place] 00 Refill(s) Humulin 2017-0 Yes 60 unit, Mem[facility] a 70/30 5-15 SUB-Q, l 18:44: QPM, 0 [place] 00 Refill(s) Humulin 2017-0 Yes 60 unit, [facility] a 70/30 5-15 SUB-Q, l 18:44: QPM, 0 [place] 00 Refill(s) Humulin 2017-0 Yes 60 unit, [facility] a 70/30 5-15 SUB-Q, l 18:44: QPM, 0 [place] 00 Refill(s) Humulin 2017-0 Yes 60 unit, [facility] a 70/30 5-15 SUB-Q, l 18:44: QPM, 0 [place] 00 Refill(s) Humulin 2017-0 Yes 60 unit, [facility] a 70/30 5-15 SUB-Q, l 18:44: QPM, 0 [place] 00 Refill(s) Humulin 2018-0 Yes 60 unit, [facility] a 70/30 5-15 SUB-Q, l 18:44: QPM, 0 [place] 00 Refill(s) Humulin 2017-0 Yes 60 unit, [facility] a 70/30 5-15 SUB-Q, l 18:44: QPM, 0 [place] 00 Refill(s) Humulin 2017-0 Yes 60 unit, [facility] a 70/30 5-15 SUB-Q, l 18:44: QPM, 0 [place] 00 Refill(s) Humulin 2018-0 Yes 60 [...] 70/30 5-15 SUB-Q, l 18:44: QPM, 0 [place] 00 Refill(s) Humulin 2018-0 Yes 60 unit, [facility] a 70/30 5-15 SUB-Q, l 18:44: QPM, 0 [place] 00 Refill(s) Humulin 2018-0 Yes 60 unit, [facility] a 70/30 5-15 SUB-Q, l 18:44: QPM, 0 [place] 00 Refill(s) Humulin 2018-0 Yes 60 unit, [facility] a 70/30 5-15 SUB-Q, l 18:44: QPM, 0 [place] 00 Refill(s) Humulin 2018-0 Yes 60 unit, [facility] a 70/30 5-15 SUB-Q, l 18:44: QPM, 0 [place] 00 Refill(s) Humulin 2018-0 Yes 60 unit, [facility] a 70/30 5-15 SUB-Q, l 18:44: QPM, 0 [place] 00 Refill(s) Humulin 2018-0 Yes 60 unit, [facility] a 70/30 5-15 SUB-Q, l 18:44: QPM, 0 [place] 00 Refill(s) Humulin 2018-0 Yes 60 unit, [facility] a 70/30 5-15 SUB-Q, l 18:44: QPM, 0 [place] 00 Refill(s) Humulin 2018-0 Yes 60 unit, [facility] a 70/30 5-15 SUB-Q, l 18:44: QPM, 0 [place] 00 Refill(s) Humulin 2018-0 Yes 60 [...] 70/30 5-15 SUB-Q, l 18:44: QPM, 0 [place] 00 Refill(s) Humulin 2018-0 Yes 60 unit, [facility] a 70/30 5-15 SUB-Q, l 18:44: QPM, 0 [place] 00 Refill(s) Humulin 2017-0 Yes 60 unit, [facility] a 70/30 5-15 SUB-Q, l 18:44: QPM, 0 [place] 00 Refill(s) Humulin 2017-0 Yes 60 unit, [facility] a 70/30 5-15 SUB-Q, l 18:44: QPM, 0 [place] 00 Refill(s) Humulin 2018-0 Yes 60 unit, [facility] a 70/30 5-15 SUB-Q, l 18:44: QPM, 0 [place] 00 Refill(s) Humulin 2018-0 Yes 60 unit, [facility] a 70/30 5-15 SUB-Q, l 18:44: QPM, 0 [place] 00 Refill(s) Humulin 2018-0 Yes 60 unit, [facility] a 70/30 5-15 SUB-Q, l 18:44: QPM, 0 [place] 00 Refill(s) Humulin 2018-0 Yes 60 unit, [facility] a 70/30 5-15 SUB-Q, l 18:44: QPM, 0 [place] 00 Refill(s) Humulin 2018-0 Yes 60 [...] 70/30 5-15 SUB-Q, l 18:44: QPM, 0 [place] 00 Refill(s) Humulin 2018-0 Yes 60 unit, [facility] a 70/30 5-15 SUB-Q, l 18:44: QPM, 0 [place] 00 Refill(s) Humulin 2018-0 Yes 60 [...] 70/30 5-15 SUB-Q, l 18:44: QPM, 0 [place] 00 Refill(s) Humulin 2018-0 Yes 60 unit, [facility] a 70/30 5-15 SUB-Q, l 18:44: QPM, 0 [place] 00 Refill(s) Humulin 2018-0 Yes 60 unit, [facility] a 70/30 5-15 SUB-Q, l 18:44: QPM, 0 [place] 00 Refill(s) Humulin 2018-0 Yes 60 unit, [facility] a 70/30 5-15 SUB-Q, l 18:44: QPM, 0 [place] 00 Refill(s) Humulin 2018-0 Yes 60 unit, [facility] a 70/30 5-15 SUB-Q, l 18:44: QPM, 0 [place] 00 Refill(s) Humulin 2018-0 Yes 60 unit, [facility] a 70/30 5-15 SUB-Q, l 18:44: QPM, 0 [place] 00 Refill(s) Humulin 2017-0 Yes 60 unit, [facility] a 70/30 5-15 SUB-Q, l 18:44: QPM, 0 [place] 00 Refill(s) Humulin 2018-0 Yes 60 unit, [facility] a 70/30 5-15 SUB-Q, l 18:44: QPM, 0 [place] 00 Refill(s) Humulin 2018-0 Yes 60 unit, [facility] a 70/30 5-15 SUB-Q, l 18:44: QPM, 0 [place] 00 Refill(s) Humulin 2018-0 Yes 60 unit, [facility] a 70/30 5-15 SUB-Q, l 18:44: QPM, 0 [place] 00 Refill(s) Humulin 2018-0 Yes 60 unit, [facility] a 70/30 5-15 SUB-Q, l 18:44: QPM, 0 [place] 00 Refill(s) Humulin 2018-0 Yes 60 unit, [facility] a 70/30 5-15 SUB-Q, l 18:44: QPM, 0 [place] 00 Refill(s) Humulin 2018-0 Yes 60 unit, [facility] a 70/30 5-15 SUB-Q, l 18:44: QPM, 0 [place] 00 Refill(s) Humulin 2018-0 Yes 60 [...] 70/30 5-15 SUB-Q, l 18:44: QPM, 0 [place] 00 Refill(s) Humulin 2018-0 Yes 60 [...] 70/30 5-15 SUB-Q, l 18:44: QPM, 0 [place] 00 Refill(s) Humulin 2018-0 Yes 60 unit, [facility] a 70/30 5-15 SUB-Q, l 18:44: QPM, 0 [place] 00 Refill(s) Humulin 2017-0 Yes 60 unit, [facility] 70/30 5-15 SUB-Q, l 18:44: QPM, 0 [place] 00 Refill(s) Humulin 2017-0 Yes 60 unit, [facility] a 70/30 5-15 SUB-Q, l 18:44: QPM, 0 [place] 00 Refill(s) Humulin 2018-0 Yes 60 unit, [facility] 70/30 5-15 SUB-Q, l 18:44: QPM, 0 [place] 00 Refill(s) Humulin 2017-0 Yes 60 unit, [facility] a 70/30 5-15 SUB-Q, l 18:44: QPM, 0 [place] 00 Refill(s) Humulin 2018-0 Yes 60 unit, [facility] a 70/30 5-15 SUB-Q, l 18:44: QPM, 0 [place] 00 Refill(s) Humulin 2018-0 Yes 60 unit, [facility] a 70/30 5-15 SUB-Q, l 18:44: QPM, 0 [place] 00 Refill(s) Humulin 2017-0 Yes 60 unit, [facility] a 70/30 5-15 SUB-Q, l 18:44: QPM, 0 [place] 00 Refill(s) Humulin 2018-0 Yes 60 unit, [facility] a 70/30 5-15 SUB-Q, l 18:44: QPM, 0 [place] 00 Refill(s) Humulin 2018-0 Yes 60 unit, [facility] a 70/30 5-15 SUB-Q, l 18:44: QPM, 0 [place] 00 Refill(s) Humulin 2018-0 Yes 60 unit, [facility] a 70/30 5-15 SUB-Q, l 18:44: QPM, 0 [place] 00 Refill(s) Humulin 2018-0 Yes 60 unit, [facility] a 70/30 5-15 SUB-Q, l 18:44: QPM, 0 [place] 00 Refill(s) Humulin 2018-0 Yes 60 unit, [facility] a 70/30 5-15 SUB-Q, l 18:44: QPM, 0 [place] 00 Refill(s) Humulin 2018-0 Yes 70 [...] 70/30 5-15 SUB-Q, l 18:43: QAM, 0 [place] 00 Refill(s) Humulin 2018-0 Yes 70 [...] 70/30 5-15 SUB-Q, l 18:43: QAM, 0 [place] 00 Refill(s) Humulin 2018-0 Yes 70 unit, [facility] a 70/30 5-15 SUB-Q, l 18:43: QAM, 0 [place] 00 Refill(s) Humulin 2018-0 Yes 70 unit, [facility] a 70/30 5-15 SUB-Q, l 18:43: QAM, 0 [place] 00 Refill(s) Humulin 2017-0 Yes 70 unit, [facility] a 70/30 5-15 SUB-Q, l 18:43: QAM, 0 [place] 00 Refill(s) Humulin 2017-0 Yes 70 unit, [facility] a 70/30 5-15 SUB-Q, l 18:43: QAM, 0 [place] 00 Refill(s) Humulin 2018-0 Yes 70 unit, [facility] a 70/30 5-15 SUB-Q, l 18:43: QAM, 0 [place] 00 Refill(s) Humulin 2018-0 Yes 70 unit, [facility] a 70/30 5-15 SUB-Q, l 18:43: QAM, 0 [place] 00 Refill(s) Humulin 2018-0 Yes 70 unit, [facility] a 70/30 5-15 SUB-Q, l 18:43: QAM, 0 [place] 00 Refill(s) Humulin 2018-0 Yes 70 unit, [facility] a 70/30 5-15 SUB-Q, l 18:43: QAM, 0 [place] 00 Refill(s) Humulin 2018-0 Yes 70 unit, [facility] a 70/30 5-15 SUB-Q, l 18:43: QAM, 0 [place] 00 Refill(s) Humulin 2018-0 Yes 70 unit, [facility] a 70/30 5-15 SUB-Q, l 18:43: QAM, 0 [place] 00 Refill(s) Humulin 2017-0 Yes 70 unit, [facility] a 70/30 5-15 SUB-Q, l 18:43: QAM, 0 [place] 00 Refill(s) Humulin 2018-0 Yes 70 unit, [facility] a 70/30 5-15 SUB-Q, l 18:43: QAM, 0 [place] 00 Refill(s) Humulin 2018-0 Yes 70 unit, [facility] a 70/30 5-15 SUB-Q, l 18:43: QAM, 0 [place] 00 Refill(s) Humulin 2018-0 Yes 70 unit, [facility] a 70/30 5-15 SUB-Q, l 18:43: QAM, 0 [place] 00 Refill(s) Humulin 2018-0 Yes 70 unit, [facility] 70/30 5-15 SUB-Q, l 18:43: QAM, 0 [place] 00 Refill(s) Humulin 2018-0 Yes 70 unit, [facility] a 70/30 5-15 SUB-Q, l 18:43: QAM, 0 [place] 00 Refill(s) Humulin 2017-0 Yes 70 unit, [facility] a 70/30 5-15 SUB-Q, l 18:43: QAM, 0 [place] 00 Refill(s) Humulin 2018-0 Yes 70 unit, [facility] a 70/30 5-15 SUB-Q, l 18:43: QAM, 0 [place] 00 Refill(s) Humulin 2018-0 Yes 70 unit, [facility] a 70/30 5-15 SUB-Q, l 18:43: QAM, 0 [place] 00 Refill(s) Humulin 2018-0 Yes 70 unit, [facility] 70/30 5-15 SUB-Q, l 18:43: QAM, 0 [place] 00 Refill(s) Humulin 2018-0 Yes 70 unit, [facility] a 70/30 5-15 SUB-Q, l 18:43: QAM, 0 [place] 00 Refill(s) Humulin 2018-0 Yes 70 unit, [facility] a 70/30 5-15 SUB-Q, l 18:43: QAM, 0 [place] 00 Refill(s) Humulin 2018-0 Yes 70 unit, [facility] a 70/30 5-15 SUB-Q, l 18:43: QAM, 0 [place] 00 Refill(s) Humulin 2018-0 Yes 70 unit, [facility] a 70/30 5-15 SUB-Q, l 18:43: QAM, 0 [place] 00 Refill(s) Humulin 2018-0 Yes 70 unit, [facility] a 70/30 5-15 SUB-Q, l 18:43: QAM, 0 [place] 00 Refill(s) Humulin 2018-0 Yes 70 [...] 70/30 5-15 SUB-Q, l 18:43: QAM, 0 [place] 00 Refill(s) Humulin 2018-0 Yes 70 unit, [facility] a 70/30 5-15 SUB-Q, l 18:43: QAM, 0 [place] 00 Refill(s) Humulin 2018-0 Yes 70 unit, [facility] a 70/30 5-15 SUB-Q, l 18:43: QAM, 0 [place] 00 Refill(s) Humulin 2018-0 Yes 70 unit, [facility] a 70/30 5-15 SUB-Q, l 18:43: QAM, 0 [place] 00 Refill(s) Humulin 2018-0 Yes 70 unit, [facility] a 70/30 5-15 SUB-Q, l 18:43: QAM, 0 [place] 00 Refill(s) Humulin 2018-0 Yes 70 unit, [facility] a 70/30 5-15 SUB-Q, l 18:43: QAM, 0 [place] 00 Refill(s) Humulin 2018-0 Yes 70 [...] 70/30 5-15 SUB-Q, l 18:43: QAM, 0 [place] 00 Refill(s) Humulin 2018-0 Yes 70 [...] 70/30 5-15 SUB-Q, l 18:43: QAM, 0 [place] 00 Refill(s) Humulin 2018-0 Yes 70 unit, [facility] a 70/30 5-15 SUB-Q, l 18:43: QAM, 0 [place] 00 Refill(s) Humulin 2018-0 Yes 70 unit, [facility] a 70/30 5-15 SUB-Q, l 18:43: QAM, 0 [place] 00 Refill(s) Humulin 2018-0 Yes 70 unit, [facility] a 70/30 5-15 SUB-Q, l 18:43: QAM, 0 [place] 00 Refill(s) Humulin 2018-0 Yes 70 unit, [facility] a 70/30 5-15 SUB-Q, l 18:43: QAM, 0 [place] 00 Refill(s) Humulin 2018-0 Yes 70 unit, [facility] a 70/30 5-15 SUB-Q, l 18:43: QAM, 0 [place] 00 Refill(s) Humulin 2018-0 Yes 70 unit, [facility] a 70/30 5-15 SUB-Q, l 18:43: QAM, 0 [place] 00 Refill(s) Humulin 2018-0 Yes 70 unit, [facility] a 70/30 5-15 SUB-Q, l 18:43: QAM, 0 [place] 00 Refill(s) Humulin 2018-0 Yes 70 unit, [facility] a 70/30 5-15 SUB-Q, l 18:43: QAM, 0 [place] 00 Refill(s) Humulin 2018-0 Yes 70 unit, [facility] a 70/30 5-15 SUB-Q, l 18:43: QAM, 0 [place] 00 Refill(s) Humulin 2018-0 Yes 70 unit, [facility] a 70/30 5-15 SUB-Q, l 18:43: QAM, 0 [place] 00 Refill(s) Humulin 2018-0 Yes 70 unit, [facility] a 70/30 5-15 SUB-Q, l 18:43: QAM, 0 [place] 00 Refill(s) Humulin 2017-0 Yes 70 unit, [facility] a 70/30 5-15 SUB-Q, l 18:43: QAM, 0 [place] 00 Refill(s) Humulin 2018-0 Yes 70 unit, [facility] a 70/30 5-15 SUB-Q, l 18:43: QAM, 0 [place] 00 Refill(s) Humulin 2018-0 Yes 70 unit, [facility] a 70/30 5-15 SUB-Q, l 18:43: QAM, 0 [place] 00 Refill(s) Humulin 2018-0 Yes 70 unit, [facility] a 70/30 5-15 SUB-Q, l 18:43: QAM, 0 [place] 00 Refill(s) Humulin 2018-0 Yes 70 unit, [facility] a 70/30 5-15 SUB-Q, l 18:43: QAM, 0 [place] 00 Refill(s) Humulin 2018-0 Yes 70 unit, [facility] a 70/30 5-15 SUB-Q, l 18:43: QAM, 0 [place] 00 Refill(s) Humulin 2018-0 Yes 70 unit, [facility] a 70/30 5-15 SUB-Q, l 18:43: QAM, 0 [place] 00 Refill(s) Humulin 2018-0 Yes 70 [...] 70/30 5-15 SUB-Q, l 18:43: QAM, 0 [place] 00 Refill(s) Humulin 2018-0 Yes 70 unit, [facility] a 70/30 5-15 SUB-Q, l 18:43: QAM, 0 [place] 00 Refill(s) Humulin 2017-0 Yes 70 unit, [facility] a 70/30 5-15 SUB-Q, l 18:43: QAM, 0 [place] 00 Refill(s) Humulin 2017-0 Yes 70 unit, [facility] a 70/30 5-15 SUB-Q, l 18:43: QAM, 0 [place] 00 Refill(s) Humulin 2018-0 Yes 70 unit, [facility] a 70/30 5-15 SUB-Q, l 18:43: QAM, 0 [place] 00 Refill(s) Humulin 2018-0 Yes 70 unit, [facility] a 70/30 5-15 SUB-Q, l 18:43: QAM, 0 [place] 00 Refill(s) Humulin 2017-0 Yes 70 unit, [facility] a 70/30 5-15 SUB-Q, l 18:43: QAM, 0 [place] 00 Refill(s) Humulin 2018-0 Yes 70 unit, [facility] a 70/30 5-15 SUB-Q, l 18:43: QAM, 0 [place] 00 Refill(s) Humulin 2018-0 Yes 70 unit, [facility] a 70/30 5-15 SUB-Q, l 18:43: QAM, 0 [place] 00 Refill(s) albuterol 2015- Yes 2{puff} Inhale 2 U nivers 90 [...] Puffs ity of mcg/actuati 00:00: every 4 Frnakie as on inhaler 00 (four) Medical hours [...] tab, PO, l Tablet 16:37: TID, 0 [place] [Xanax] 00 Refill(s) Alprazolam 20160 Yes 2 mg = 1 [facility] 2 MG Oral 1-07 tab, PO, l Tablet 16:37: TID, 0 [place] [Xanax] 00 Refill(s) Alprazolam 2016 Yes 2 mg = 1 [facility] 2 MG Oral 1-07 tab, PO, l Tablet 16:37: TID, 0 [place] [Xanax] 00 Refill(s) Alprazolam 20160 Yes 2 mg = 1 [facility] 2 MG Oral 1-07 tab, PO, l Tablet 16:37: TID, 0 [place] [Xanax] 00 Refill(s) Alprazolam 20160 Yes [...] tab, PO, l Tablet 16:37: TID, 0 [place] [Xanax] 00 Refill(s) Alprazolam 20160 Yes 2 mg = 1 [facility] 2 MG Oral 1-07 tab, PO, l Tablet 16:37: TID, 0 [place] [Xanax] 00 Refill(s) Alprazolam 20160 Yes 2 mg = 1 [facility] 2 MG Oral 1-07 tab, PO, l Tablet 16:37: TID, 0 [place] [Xanax] 00 Refill(s) Alprazolam 20160 Yes 2 mg = 1 [facility] 2 MG Oral -07 tab, PO, l Tablet 16:37: TID, 0 [place] [Xanax] 00 Refill(s) Alprazolam 20160 Yes 2 mg = 1 [facility] 2 MG Oral -07 tab, PO, l Tablet 16:37: TID, 0 [place] [Xanax] 00 Refill(s) Alprazolam 0 Yes 2 mg = 1 [facility] 2 MG Oral -07 tab, PO, l Tablet 16:37: TID, 0 [place] [Xanax] 00 Refill(s) Alprazolam Yes 2 mg = 1 [facility] 2 MG Oral -07 tab, PO, l Tablet 16:37: TID, 0 [place] [Xanax] 00 Refill(s) Alprazolam 0 Yes 2 mg = 1 [facility] 2 MG Oral 07 tab, PO, l Tablet 16:37: TID, 0 [place] [Xanax] 00 Refill(s) Alprazolam 20160 Yes 2 mg = 1 [facility] 2 MG Oral -07 tab, PO, l Tablet 16:37: TID, 0 [place] [Xanax] 00 Refill(s) Alprazolam 20160 Yes 2 mg = 1 [facility] 2 MG Oral -07 tab, PO, l Tablet 16:37: TID, 0 [place] [Xanax] 00 Refill(s) Alprazolam 0 Yes 2 mg = 1 [facility] 2 MG Oral -07 tab, PO, l Tablet 16:37: TID, 0 [place] [Xanax] 00 Refill(s) Alprazolam 0 Yes 2 mg = 1 [facility] 2 MG Oral -07 tab, PO, l Tablet 16:37: TID, 0 [place] [Xanax] 00 Refill(s) Alprazolam 0 Yes 2 mg = 1 [facility] 2 MG Oral -07 tab, PO, l Tablet 16:37: TID, 0 [place] [Xanax] 00 Refill(s) Alprazolam 2016-0 Yes [...] tab, PO, l Tablet 16:37: TID, 0 [place] [Xanax] 00 Refill(s) Alprazolam 20160 Yes 2 mg = 1 [facility] 2 MG Oral -07 tab, PO, l Tablet 16:37: TID, 0 [place] [Xanax] 00 Refill(s) Alprazolam 20160 Yes 2 mg = 1 [facility] 2 MG Oral -07 tab, PO, l Tablet 16:37: TID, 0 [place] [Xanax] 00 Refill(s) Alprazolam 20160 Yes [...] tab, PO, l Tablet 16:37: TID, 0 [place] [Xanax] 00 Refill(s) Alprazolam 20160 Yes [...] tab, PO, l Tablet 16:37: TID, 0 [place] [Xanax] 00 Refill(s) Alprazolam 20160 Yes 2 mg = 1 [facility] 2 MG Oral 07 tab, PO, l Tablet 16:37: TID, 0 [place] [Xanax] 00 Refill(s) Alprazolam 20160 Yes 2 mg = 1 [facility] 2 MG Oral 11-07 tab, PO, l Tablet 16:37: TID, 0 [place] [Xanax] 00 Refill(s) Alprazolam 20160 Yes [...] tab, PO, l Tablet 16:37: TID, 0 [place] [Xanax] 00 Refill(s) Alprazolam 0 Yes [...] tab, PO, l Tablet 16:37: TID, 0 [place] [Xanax] 00 Refill(s) Alprazolam 20160 Yes 2 mg = 1 [facility] 2 MG Oral 11-07 tab, PO, l Tablet 16:37: TID, 0 [place] [Xanax] 00 Refill(s) Alprazolam 2016 Yes 2 mg = 1 [facility] 2 MG Oral 11-07 tab, PO, l Tablet 16:37: TID, 0 [place] [Xanax] 00 Refill(s) Alprazolam 20160 Yes 2 mg = 1 [facility] 2 MG Oral 11-07 tab, PO, l Tablet 16:37: TID, 0 [place] [Xanax] 00 Refill(s) Alprazolam 20160 Yes 2 mg = 1 [facility] 2 MG Oral 11-07 tab, PO, l Tablet 16:37: TID, 0 [place] [Xanax] 00 Refill(s) Alprazolam 20160 Yes 2 mg = 1 [facility] 2 MG Oral 07 tab, PO, l Tablet 16:37: TID, 0 [place] [Xanax] 00 Refill(s) Alprazolam 20160 Yes 2 mg = 1 [facility] 2 MG Oral -07 tab, PO, l Tablet 16:37: TID, 0 [place] [Xanax] 00 Refill(s) Alprazolam 2016 Yes 2 mg = 1 [facility] 2 MG Oral -07 tab, PO, l Tablet 16:37: TID, 0 [place] [Xanax] 00 Refill(s) Alprazolam 20160 Yes 2 mg = 1 [facility] 2 MG Oral 11-07 tab, PO, l Tablet 16:37: TID, 0 [place] [Xanax] 00 Refill(s) Alprazolam 20160 Yes 2 mg = 1 [facility] 2 MG Oral 11-07 tab, PO, l Tablet 16:37: TID, 0 [place] [Xanax] 00 Refill(s) Alprazolam 20160 Yes 2 mg = 1 [facility] 2 MG Oral 11-07 tab, PO, l Tablet 16:37: TID, 0 [place] [Xanax] 00 Refill(s) Alprazolam 20160 Yes 2 mg = 1 [facility] 2 MG Oral 11-07 tab, PO, l Tablet 16:37: TID, 0 [place] [Xanax] 00 Refill(s) Alprazolam 2016 Yes 2 mg = 1 [facility] 2 MG Oral 11-07 tab, PO, l Tablet 16:37: TID, 0 [place] [Xanax] 00 Refill(s) Alprazolam 20160 Yes 2 mg = 1 [facility] 2 MG Oral 11-07 tab, PO, l Tablet 16:37: TID, 0 [place] [Xanax] 00 Refill(s) Alprazolam 20160 Yes 2 mg = 1 [facility] 2 MG Oral 11-07 tab, PO, l Tablet 16:37: TID, 0 [place] [Xanax] 00 Refill(s) Alprazolam 20160 Yes 2 mg = 1 [facility] 2 MG Oral 11-07 tab, PO, l Tablet 16:37: TID, 0 [place] [Xanax] 00 Refill(s) Alprazolam 20160 Yes 2 mg = 1 [facility] 2 MG Oral 07 tab, PO, l Tablet 16:37: TID, 0 [place] [Xanax] 00 Refill(s) Alprazolam 20160 Yes 2 mg = 1 [facility] 2 MG Oral 07 tab, PO, l Tablet 16:37: TID, 0 [place] [Xanax] 00 Refill(s) Alprazolam 0 Yes 2 mg = 1 [facility] 2 MG Oral 1-07 tab, PO, l Tablet 16:37: TID, 0 [place] [Xanax] 00 Refill(s) Alprazolam 20160 Yes 2 mg = 1 [facility] 2 MG Oral -07 tab, PO, l Tablet 16:37: TID, 0 [place] [Xanax] 00 Refill(s) Alprazolam 20160 Yes 2 mg = 1 [facility] 2 MG Oral -07 tab, PO, l Tablet 16:37: TID, 0 [place] [Xanax] 00 Refill(s) Alprazolam Yes 2 [...] tab, PO, l Tablet 16:37: TID, 0 [place] [Xanax] 00 Refill(s) Alprazolam 2016 Yes [...] tab, PO, l Tablet 16:37: TID, 0 [place] [Xanax] 00 Refill(s) Alprazolam Yes 2 mg = 1 Mem oria 2 MG Oral 1-07 tab, PO, l Tablet 16:37: TID, 0 [place] [Xanax] 00 Refill(s) Alprazolam 2016-0 Yes 2 mg = 1 Mem oria 2 MG Oral 1-07 tab, PO, l Tablet 16:37: TID, 0 [place] [Xanax] 00 Refill(s) Alprazolam 20160 Yes 2 mg = 1 Mem o[place] 2 MG Oral -07 tab, PO, l Tablet 16:37: TID, 0 [place] [Xanax] 00 Refill(s) Alprazolam 20160 Yes 2 mg = 1 Mem o[place] 2 MG Oral -07 tab, PO, l Tablet 16:37: TID, 0 [place] [Xanax] 00 Refill(s) Alprazolam 2016 Yes 2 mg = 1 [facility] 2 MG Oral -07 tab, PO, l Tablet 16:37: TID, 0 [place] [Xanax] 00 Refill(s) Alprazolam 2016 Yes [...] tab, PO, l Tablet 16:37: TID, 0 [place] [Xanax] 00 Refill(s) Alprazolam 20160 Yes 2 mg = 1 Mem o[place] 2 MG Oral -07 tab, PO, l Tablet 16:37: TID, 0 [place] [Xanax] 00 Refill(s) Alprazolam 20160 Yes 2 mg = 1 [facility] 2 MG Oral -07 tab, PO, l Tablet 16:37: TID, 0 [place] [Xanax] 00 Refill(s) Alprazolam 20160 Yes 2 mg = 1 [place] [facility] 2 MG Oral 1-07 tab, PO, l Tablet 16:37: TID, 0 [place] [Xanax] 00 Refill(s) Alprazolam 2016-0 Yes 2 mg = 1 [facility] 2 MG Oral -07 tab, PO, l Tablet 16:37: TID, 0 [place] [Xanax] 00 Refill(s) Alprazolam Yes 2 [...] Pain, # 100 tab, 0 Refill(s) Promethazin 20160 Yes 5 mL, PO, M emoria e [...] 1-07 PRN, 0 l Codeine 16:21: Refill(s) Aelxandria nn 00 Promethazin 2016-0 Yes 5 mL, PO, M emoria e VC with 1-07 PRN, 0 l Codeine 16:21: Refill(s) Alxeandria nn 00 Promethazin 2016-0 Yes 5 mL, [...] ermann Bitartrate 00 10 MG Oral Tablet [[place] 10/325] Acetaminoph Yes 1 tab, PO, Memoria en 325 MG / 1-07 BID, 0 l Hydrocodone 16:19: Refill(s) H ermann Bitartrate 00 10 MG Oral Tablet [[place] 10/325] Acetaminoph Yes 1 tab, PO, Memoria en 325 MG / 1-07 BID, 0 l Hydrocodone 16:19: Refill(s) H [place] Bitartrate 00 10 MG Oral Tablet [[place] 10/325] Acetaminoph Yes 1 tab, PO, Memoria en 325 MG / 1-07 BID, 0 l Hydrocodone 16:19: Refill(s) H [place] Bitartrate 00 10 MG Oral Tablet [[place] 10/325] Acetaminoph Yes 1 tab, PO, Memoria en 325 MG / 1-07 BID, 0 l Hydrocodone 16:19: Refill(s) H [place] Bitartrate 00 10 MG Oral Tablet [[place] 10/325] Acetaminoph Yes 1 tab, PO, Memoria en 325 MG / 1-07 BID, 0 l Hydrocodone 16:19: Refill(s) H [place] Bitartrate 00 10 MG Oral Tablet [[place] 10/325] Acetaminoph Yes 1 tab, PO, Memoria en 325 MG / 1-07 BID, 0 l Hydrocodone 16:19: Refill(s) H [place] Bitartrate 00 10 MG Oral Tablet [[place] 10/325] Acetaminoph Yes 1 tab, PO, Memoria en 325 MG / 1-07 BID, 0 l Hydrocodone 16:19: Refill(s) H [place] Bitartrate 00 10 MG Oral Tablet [[place] 10/325] Acetaminoph Yes 1 tab, PO, Memoria en 325 MG / 1-07 BID, 0 l Hydrocodone 16:19: Refill(s) H [place] Bitartrate 00 10 MG Oral Tablet [[place] 10/325] Acetaminoph Yes 1 tab, PO, Memoria en 325 MG / 1-07 BID, 0 l Hydrocodone 16:19: Refill(s) H [place] Bitartrate 00 10 MG Oral Tablet [[place] 10/325] Acetaminoph Yes 1 tab, PO, Memoria en 325 MG / 1-07 BID, 0 l Hydrocodone 16:19: Refill(s) H [place] Bitartrate 00 10 MG Oral Tablet [[place] 10/325] Acetaminoph Yes 1 tab, PO, Memoria en 325 MG / 1-07 BID, 0 l Hydrocodone 16:19: Refill(s) H [place] Bitartrate 00 10 MG Oral Tablet [[place] 10/325] Acetaminoph Yes 1 tab, PO, Memoria en 325 MG / 1-07 BID, 0 l Hydrocodone 16:19: Refill(s) H [place] Bitartrate 00 10 MG Oral Tablet [[place] 10/325] Acetaminoph Yes 1 tab, PO, Memoria en 325 MG / 1-07 BID, 0 l Hydrocodone 16:19: Refill(s) H [place] Bitartrate 00 10 MG Oral Tablet [[place] 10/325] Acetaminoph Yes 1 tab, PO, Memoria en 325 MG / 1-07 BID, 0 l Hydrocodone 16:19: Refill(s) H [place] Bitartrate 00 10 MG Oral Tablet [[place] 10/325] Acetaminoph Yes 1 tab, PO, Memoria en 325 MG / 1-07 BID, 0 l Hydrocodone 16:19: Refill(s) H [place] Bitartrate 00 10 MG Oral Tablet [[place] 10/325] Acetaminoph Yes 1 tab, PO, Memoria en 325 MG / 1-07 BID, 0 l Hydrocodone 16:19: Refill(s) H [place] Bitartrate 00 10 MG Oral Tablet [[place] 10/325] Acetaminoph Yes 1 tab, PO, Memoria en 325 MG / 1-07 BID, 0 l Hydrocodone 16:19: Refill(s) H [place] Bitartrate 00 10 MG Oral Tablet [[place] 10/325] Acetaminoph Yes 1 tab, PO, Memoria en 325 MG / 1-07 BID, 0 l Hydrocodone 16:19: Refill(s) H ermann Bitartrate 00 10 MG Oral Tablet [[place] 10/325] Acetaminoph Yes 1 tab, PO, Mem[facility] en 325 MG / 1-07 BID, 0 l Hydrocodone 16:19: Refill(s) H ermann Bitartrate 00 10 MG Oral Tablet [[place] 10/325] Acetaminoph Yes 1 tab, PO, [facility] [place] 325 MG / 1-07 BID, 0 l Hydrocodone 16:19: Refill(s) H ermann Bitartrate 00 10 MG Oral Tablet [[place] 10/325] Acetaminoph Yes 1 tab, PO, Mem[facility] en 325 MG / 1-07 BID, 0 l Hydrocodone 16:19: Refill(s) [facility] Bitartrate 00 10 MG Oral Tablet [[place] 10/325] Acetaminoph Yes 1 tab, PO, Mem[facility] en 325 MG / 1-07 BID, 0 l Hydrocodone 16:19: Refill(s) H ermann Bitartrate 00 10 MG Oral Tablet [[place] 10/325] Acetaminoph Yes 1 tab, PO, Mem[facility] en 325 MG / 1-07 BID, 0 l Hydrocodone 16:19: Refill(s) H [facility] Bitartrate 00 10 MG Oral Tablet [[place] 10/325] Acetaminoph Yes 1 tab, PO, Mem[facility] en 325 MG / 1-07 BID, 0 l Hydrocodone 16:19: Refill(s) H ermann Bitartrate 00 10 MG Oral Tablet [[place] 10/325] Acetaminoph Yes 1 tab, PO, Mem[facility] en 325 MG / 1-07 BID, 0 l Hydrocodone 16:19: Refill(s) H ermann Bitartrate 00 10 MG Oral Tablet [[place] 10/325] Acetaminoph Yes 1 tab, PO, [facility] en 325 MG / 1-07 BID, 0 l Hydrocodone 16:19: Refill(s) H ermann Bitartrate 00 10 MG Oral Tablet [[place] 10/325] Acetaminoph Yes 1 tab, PO, [facility] en 325 MG / 1-07 BID, 0 l Hydrocodone 16:19: Refill(s) H ermann Bitartrate 00 10 MG Oral Tablet [[place] 10/325] Acetaminoph Yes 1 tab, PO, Mem[facility] en 325 MG / 1-07 BID, 0 l Hydrocodone 16:19: Refill(s) H ermann Bitartrate 00 10 MG Oral Tablet [[place] 10/325] Acetaminoph Yes 1 tab, PO, [facility] en 325 MG / 1-07 BID, 0 l Hydrocodone 16:19: Refill(s) H ermann Bitartrate 00 10 MG Oral Tablet [[place] 10/325] Acetaminoph Yes 1 tab, PO, [facility] en 325 MG / 1-07 BID, 0 l Hydrocodone 16:19: Refill(s) H ermann Bitartrate 00 10 MG Oral Tablet [[place] 10/325] Acetaminoph Yes 1 tab, PO, Mem[facility] en 325 MG / 1-07 BID, 0 l Hydrocodone 16:19: Refill(s) H ermann Bitartrate 00 10 MG Oral Tablet [[place] 10/325] Acetaminoph Yes 1 tab, PO, Memoria en 325 MG / 1-07 BID, 0 l Hydrocodone 16:19: Refill(s) H ermann Bitartrate 00 10 MG Oral Tablet [[place] 10/325] Acetaminoph Yes 1 tab, PO, Mem[facility] en 325 MG / 1-07 BID, 0 l Hydrocodone 16:19: Refill(s) H ermann Bitartrate 00 10 MG Oral Tablet [[place] 10/325] Acetaminoph Yes 1 tab, PO, Mem[facility] en 325 MG / 1-07 BID, 0 l Hydrocodone 16:19: Refill(s) H ermann Bitartrate 00 10 MG Oral Tablet [[place] 10/325] Acetaminoph Yes 1 tab, PO, Mem[facility] en 325 MG / 1-07 BID, 0 l Hydrocodone 16:19: Refill(s) H ermann Bitartrate 00 10 MG Oral Tablet [[place] 10/325] Acetaminoph Yes 1 tab, PO, Mem[facility] en 325 MG / 1-07 BID, 0 l Hydrocodone 16:19: Refill(s) H ermann Bitartrate 00 10 MG Oral Tablet [[place] 10/325] Acetaminoph Yes 1 tab, PO, Mem[facility] en 325 MG / 1-07 BID, 0 l Hydrocodone 16:19: Refill(s) H ermann Bitartrate 00 10 MG Oral Tablet [[place] 10/325] Acetaminoph Yes 1 tab, PO, Memoria en 325 MG / 1-07 BID, 0 l Hydrocodone 16:19: Refill(s) H ermann Bitartrate 00 10 MG Oral Tablet [[place] 10/325] Acetaminoph Yes 1 tab, PO, Memoria en 325 MG / 1-07 BID, 0 l Hydrocodone 16:19: Refill(s) H ermann Bitartrate 00 10 MG Oral Tablet [[place] 10/325] Acetaminoph Yes 1 tab, PO, Memoria en 325 MG / 1-07 BID, 0 l Hydrocodone 16:19: Refill(s) H ermann Bitartrate 00 10 MG Oral Tablet [[place] 10/325] Acetaminoph Yes 1 tab, PO, Memoria en 325 MG / 1-07 BID, 0 l Hydrocodone 16:19: Refill(s) H ermann Bitartrate 00 10 MG Oral Tablet [[place] 10/325] Acetaminoph Yes 1 tab, PO, Memoria en 325 MG / 1-07 BID, 0 l Hydrocodone 16:19: Refill(s) H ermann Bitartrate 00 10 MG Oral Tablet [[place] 10/325] Acetaminoph Yes 1 tab, PO, Memoria en 325 MG / 1-07 BID, 0 l Hydrocodone 16:19: Refill(s) H ermann Bitartrate 00 10 MG Oral Tablet [[place] 10/325] Acetaminoph Yes 1 tab, PO, Memoria en 325 MG / 1-07 BID, 0 l Hydrocodone 16:19: Refill(s) H ermann Bitartrate 00 10 MG Oral Tablet [[place] 10/325] Acetaminoph Yes 1 tab, PO, Memoria en 325 MG / 1-07 BID, 0 l Hydrocodone 16:19: Refill(s) H ermann Bitartrate 00 10 MG Oral Tablet [[place] 10/325] Acetaminoph Yes 1 tab, PO, Memoria en 325 MG / 1-07 BID, 0 l Hydrocodone 16:19: Refill(s) H ermann Bitartrate 00 10 MG Oral Tablet [[place] 10/325] Acetaminoph Yes 1 tab, PO, Memoria en 325 MG / 1-07 BID, 0 l Hydrocodone 16:19: Refill(s) H ermann Bitartrate 00 10 MG Oral Tablet [[place] 10/325] Acetaminoph Yes 1 tab, PO, Memoria en 325 MG / 1-07 BID, 0 l Hydrocodone 16:19: Refill(s) H ermann Bitartrate 00 10 MG Oral Tablet [[place] 10/325] Acetaminoph Yes 1 tab, PO, Memoria en 325 MG / 1-07 BID, 0 l Hydrocodone 16:19: Refill(s) H ermann Bitartrate 00 10 MG Oral Tablet [[place] 10/325] Acetaminoph Yes 1 tab, PO, Memoria en 325 MG / 1-07 BID, 0 l Hydrocodone 16:19: Refill(s) H ermann Bitartrate 00 10 MG Oral Tablet [[place] 10/325] Acetaminoph Yes 1 tab, PO, Memoria en 325 MG / 1-07 BID, 0 l Hydrocodone 16:19: Refill(s) H ermann Bitartrate 00 10 MG Oral Tablet [[place] 10/325] Acetaminoph Yes 1 tab, PO, Memoria en 325 MG / 1-07 BID, 0 l Hydrocodone 16:19: Refill(s) H ermann Bitartrate 00 10 MG Oral Tablet [[place] 10/325] Acetaminoph Yes 1 tab, PO, Memoria en 325 MG / 1-07 BID, 0 l Hydrocodone 16:19: Refill(s) H ermann Bitartrate 00 10 MG Oral Tablet [[place] 10/325] Acetaminoph Yes 1 tab, PO, Memoria en 325 MG / 1-07 BID, 0 l Hydrocodone 16:19: Refill(s) H ermann Bitartrate 00 10 MG Oral Tablet [[place] 10/325] Acetaminoph Yes 1 tab, PO, Memoria en 325 MG / 1-07 BID, 0 l Hydrocodone 16:19: Refill(s) H ermann Bitartrate 00 10 MG Oral Tablet [[place] 10/325] Acetaminoph Yes 1 tab, PO, Memoria en 325 MG / 1-07 BID, 0 l Hydrocodone 16:19: Refill(s) H ermann Bitartrate 00 10 MG Oral Tablet [[place] 10/325] Acetaminoph Yes 1 tab, PO, Memoria en 325 MG / 1-07 BID, 0 l Hydrocodone 16:19: Refill(s) H ermann Bitartrate 00 10 MG Oral Tablet [[place] 10/325] Acetaminoph Yes 1 tab, PO, Memoria en 325 MG / 1-07 BID, 0 l Hydrocodone 16:19: Refill(s) H ermann Bitartrate 00 10 MG Oral Tablet [[place] 10/325] Acetaminoph Yes 1 tab, PO, Memoria en 325 MG / 1-07 BID, 0 l Hydrocodone 16:19: Refill(s) H ermann Bitartrate 00 10 MG Oral Tablet [[place] 10/325] Acetaminoph Yes 1 tab, PO, Memoria en 325 MG / 1-07 BID, 0 l Hydrocodone 16:19: Refill(s) H ermann Bitartrate 00 10 MG Oral Tablet [[place] 10/325] Acetaminoph Yes 1 tab, PO, Memoria en 325 MG / 1-07 BID, 0 l Hydrocodone 16:19: Refill(s) H ermann Bitartrate 00 10 MG Oral Tablet [[place] 10/325] Acetaminoph Yes 1 tab, PO, Memoria en 325 MG / 1-07 BID, 0 l Hydrocodone 16:19: Refill(s) H ermann Bitartrate 00 10 MG Oral Tablet [[place] 10/325] Acetaminoph Yes 1 tab, PO, Memoria en 325 MG / 1-07 BID, 0 l Hydrocodone 16:19: Refill(s) H ermann Bitartrate 00 10 MG Oral Tablet [[place] 10/325] Acetaminoph Yes 1 tab, PO, Memoria en 325 MG / 1-07 BID, 0 l Hydrocodone 16:19: Refill(s) H ermann Bitartrate 00 10 MG Oral Tablet [[place] 10/325] Acetaminoph Yes 1 tab, PO, Memoria en 325 MG / 1-07 BID, 0 l Hydrocodone 16:19: Refill(s) H ermann Bitartrate 00 10 MG Oral Tablet [[place] 10/325] Acetaminoph Yes 1 tab, PO, Memoria en 325 MG / 1-07 BID, 0 l Hydrocodone 16:19: Refill(s) H ermann Bitartrate 00 10 MG Oral Tablet [[place] 10/325] Acetaminoph Yes 1 tab, PO, Memoria en 325 MG / 1-07 BID, 0 l Hydrocodone 16:19: Refill(s) H ermann Bitartrate 00 10 MG Oral Tablet [[place] 10/325] Acetaminoph Yes 1 tab, PO, Memoria en 325 MG / 1-07 BID, 0 l Hydrocodone 16:19: Refill(s) H ermann Bitartrate 00 10 MG Oral Tablet [[place] 10/325] Acetaminoph Yes 1 tab, PO, Memoria en 325 MG / 1-07 BID, 0 l Hydrocodone 16:19: Refill(s) H ermann Bitartrate 00 10 MG Oral Tablet [[place] 10/325] Acetaminoph Yes 1 tab, PO, Memoria en 325 MG / 1-07 BID, 0 l Hydrocodone 16:19: Refill(s) H ermann Bitartrate 00 10 MG Oral Tablet [[place] 10/325] Acetaminoph Yes 1 tab, PO, Memoria en 325 MG / 1-07 BID, 0 l Hydrocodone 16:19: Refill(s) H ermann Bitartrate 00 10 MG Oral Tablet [[place] 10/325] Acetaminoph Yes 1 tab, PO, Memoria en 325 MG / 1-07 BID, 0 l Hydrocodone 16:19: Refill(s) H ermann Bitartrate 00 10 MG Oral Tablet [[place] 10/325] Acetaminoph Yes 1 tab, PO, Memoria en 325 MG / 1-07 BID, 0 l Hydrocodone 16:19: Refill(s) H ermann Bitartrate 00 10 MG Oral Tablet [[place] 10/325] Acetaminoph Yes 1 tab, PO, Memoria en 325 MG / 1-07 BID, 0 l Hydrocodone 16:19: Refill(s) H ermann Bitartrate 00 10 MG Oral Tablet [[place] 10/325] Acetaminoph Yes 1 tab, PO, Memoria en 325 MG / 1-07 BID, 0 l Hydrocodone 16:19: Refill(s) H ermann Bitartrate 00 10 MG Oral Tablet [[place] 10/325] Acetaminoph Yes 1 tab, PO, Memoria en 325 MG / 1-07 BID, 0 l Hydrocodone 16:19: Refill(s) H ermann Bitartrate 00 10 MG Oral Tablet [[place] 10/325] Acetaminoph Yes 1 tab, PO, Memoria en 325 MG / 1-07 BID, 0 l Hydrocodone 16:19: Refill(s) H ermann Bitartrate 00 10 MG Oral Tablet [[place] 10/325] Acetaminoph Yes 1 tab, PO, Memoria en 325 MG / 1-07 BID, 0 l Hydrocodone 16:19: Refill(s) H ermann Bitartrate 00 10 MG Oral Tablet [[place] 10/325] Acetaminoph Yes 1 tab, PO, Memoria en 325 MG / 1-07 BID, 0 l Hydrocodone 16:19: Refill(s) H ermann Bitartrate 00 10 MG Oral Tablet [[place] 10/325] Acetaminoph Yes 1 tab, PO, Memoria en 325 MG / 1-07 BID, 0 l Hydrocodone 16:19: Refill(s) H ermann Bitartrate 00 10 MG Oral Tablet [[place] 10/325] Acetaminoph Yes 1 tab, PO, Memoria en 325 MG / 1-07 BID, 0 l Hydrocodone 16:19: Refill(s) H ermann Bitartrate 00 10 MG Oral Tablet [[place] 10/325] Acetaminoph Yes 1 tab, PO, Memoria en 325 MG / 1-07 BID, 0 l Hydrocodone 16:19: Refill(s) H ermann Bitartrate 00 10 MG Oral Tablet [[place] 10/325] Acetaminoph Yes 1 tab, PO, Memoria en 325 MG / 11-07 BID, 0 l Hydrocodone 16:19: Refill(s) H ermann Bitartrate 00 10 MG Oral Tablet [[place] 10/325] Acetaminoph Yes 1 tab, PO, Memoria en 325 MG / 11-07 BID, 0 l Hydrocodone 16:19: Refill(s) H ermann Bitartrate 00 10 MG Oral Tablet [[place] 10/325] tizanidine Yes 4 mg = 1 [...] [place] nn [Zanaflex] 00 cap, 0 Refill(s) tizanidine 2016-0 Yes 4 mg = 1 Mem [facility] 4 MG Oral -07 cap, PO, l Capsule 16:18: BID, # 90 [place] nn [Zanaflex] 00 cap, 0 Refill(s) Zolpidem 2016-0 Yes 5 mg = 1 Memor ia tartrate 5 -07 tab, PO, l MG Oral 16:18: Bedtime, 0 [facility] flakita Tablet 00 Refill(s) [Ambien] Zolpidem 2016-0 Yes 5 mg = 1 [...] cap, PO, l capsule 16:17: BID, 0 [place] 00 Refill(s) cephalexin 2016-0 Yes 500 mg = 1 M emoria 500 mg oral 1-07 cap, PO, l capsule 16:17: BID, 0 [place] 00 Refill(s) cephalexin 2016-0 Yes 500 mg = 1 M emoria 500 mg oral 1-07 cap, PO, l capsule 16:17: BID, 0 [place] 00 Refill(s) cephalexin 2016-0 Yes 500 mg = 1 M emoria 500 mg oral 1-07 cap, PO, l capsule 16:17: BID, 0 [place] 00 Refill(s) cephalexin 2016-0 Yes 500 mg = 1 M emoria 500 mg oral 1-07 cap, PO, l capsule 16:17: BID, 0 [place] 00 Refill(s) cephalexin 2016-0 Yes 500 [...] cap, PO, l capsule 16:17: BID, 0 [place] 00 Refill(s) cephalexin 2016-0 Yes 500 mg = 1 M emoria 500 mg oral 1-07 cap, PO, l capsule 16:17: BID, 0 [place] 00 Refill(s) cephalexin 2016-0 Yes 500 mg = 1 M emoria 500 mg oral 1-07 cap, PO, l capsule 16:17: BID, 0 [place] 00 Refill(s) cephalexin 2016-0 Yes 500 mg = 1 M emoria 500 mg oral 1-07 cap, PO, l capsule 16:17: BID, 0 [place] 00 Refill(s) cephalexin 2016-0 Yes 500 [...] cap, PO, l capsule 16:17: BID, 0 [place] 00 Refill(s) cephalexin 2016-0 Yes 500 mg = 1 M emoria 500 mg oral 1-07 cap, PO, l capsule 16:17: BID, 0 [place] 00 Refill(s) cephalexin 2016-0 Yes 500 mg = 1 M emoria 500 mg oral 1-07 cap, PO, l capsule 16:17: BID, 0 [place] 00 Refill(s) cephalexin 2016-0 Yes 500 [...] cap, PO, l capsule 16:17: BID, 0 [place] 00 Refill(s) cephalexin 2016-0 Yes 500 [...] cap, PO, l capsule 16:17: BID, 0 [place] 00 Refill(s) cephalexin 2016-0 Yes 500 mg = 1 M emoria 500 mg oral 1-07 cap, PO, l capsule 16:17: BID, 0 [place] 00 Refill(s) cephalexin 2016-0 Yes 500 mg = 1 M emoria 500 mg oral 1-07 cap, PO, l capsule 16:17: BID, 0 [place] 00 Refill(s) cephalexin 2016-0 Yes 500 mg = 1 M emoria 500 mg oral 1-07 cap, PO, l capsule 16:17: BID, 0 [place] 00 Refill(s) cephalexin 2016-0 Yes 500 mg = 1 M emoria 500 mg oral 1-07 cap, PO, l capsule 16:17: BID, 0 [place] 00 Refill(s) cephalexin 2016-0 Yes 500 mg = 1 M emoria 500 mg oral 1-07 cap, PO, l capsule 16:17: BID, 0 [place] 00 Refill(s) cephalexin 2016-0 Yes 500 mg = 1 M emoria 500 mg oral 1-07 cap, PO, l capsule 16:17: BID, 0 [place] 00 Refill(s) cephalexin 2016-0 Yes 500 mg = 1 M emoria 500 mg oral 1-07 cap, PO, l capsule 16:17: BID, 0 [place] 00 Refill(s) cephalexin 2016-0 Yes 500 mg = 1 M emoria 500 mg oral 1-07 cap, PO, l capsule 16:17: BID, 0 [place] 00 Refill(s) cephalexin 2016-0 Yes 500 mg = 1 M emoria 500 mg oral 1-07 cap, PO, l capsule 16:17: BID, 0 [place] 00 Refill(s) cephalexin 2016-0 Yes 500 [...] cap, PO, l capsule 16:17: BID, 0 [place] 00 Refill(s) cephalexin 2016-0 Yes 500 mg = 1 M emoria 500 mg oral 1-07 cap, PO, l capsule 16:17: BID, 0 [place] 00 Refill(s) cephalexin 2015-0 Yes 500 mg = 1 M emoria 500 mg oral 1-07 cap, PO, l capsule 16:17: BID, 0 [place] 00 Refill(s) cephalexin 2016-0 Yes 500 mg = 1 M emoria 500 mg oral 1-07 cap, PO, l capsule 16:17: BID, 0 [place] 00 Refill(s) cephalexin 2016-0 Yes 500 mg = 1 M emoria 500 mg oral 1-07 cap, PO, l capsule 16:17: BID, 0 [place] 00 Refill(s) cephalexin 2016-0 Yes 500 mg = 1 M emoria 500 mg oral 1-07 cap, PO, l capsule 16:17: BID, 0 [place] 00 Refill(s) cephalexin 2016-0 Yes 500 mg = 1 M emoria 500 mg oral 1-07 cap, PO, l capsule 16:17: BID, 0 [place] 00 Refill(s) cephalexin 2016-0 Yes 500 mg = 1 M emoria 500 mg oral 1-07 cap, PO, l capsule 16:17: BID, 0 [place] 00 Refill(s) cephalexin 2016-0 Yes 500 [...] cap, PO, l capsule 16:17: BID, 0 [place] 00 Refill(s) cephalexin 2015-0 Yes 500 mg = 1 M emoria 500 mg oral 1-07 cap, PO, l capsule 16:17: BID, 0 [place] 00 Refill(s) cephalexin 2015-0 Yes 500 mg = 1 M emoria 500 mg oral 1-07 cap, PO, l capsule 16:17: BID, 0 [place] 00 Refill(s) cephalexin 2015-0 Yes 500 mg = 1 M emoria 500 mg oral 1-07 cap, PO, l capsule 16:17: BID, 0 [place] 00 Refill(s) cephalexin 2015-0 Yes 500 mg = 1 M emoria 500 mg oral 1-07 cap, PO, l capsule 16:17: BID, 0 [place] 00 Refill(s) cephalexin 2016-0 Yes 500 mg = 1 M emoria 500 mg oral 1-07 cap, PO, l capsule 16:17: BID, 0 [place] 00 Refill(s) cephalexin 2015-0 Yes 500 mg = 1 M emoria 500 mg oral 1-07 cap, PO, l capsule 16:17: BID, 0 [place] 00 Refill(s) cephalexin 2016-0 Yes 500 mg = 1 M emoria 500 mg oral 1-07 cap, PO, l capsule 16:17: BID, 0 [place] 00 Refill(s) cephalexin 2016-0 Yes 500 mg = 1 M emoria 500 mg oral 1-07 cap, PO, l capsule 16:17: BID, 0 [place] 00 Refill(s) cephalexin 2016-0 Yes 500 mg = 1 M emoria 500 mg oral 1-07 cap, PO, l capsule 16:17: BID, 0 [place] 00 Refill(s) cephalexin 2016-0 Yes 500 [...] cap, PO, l capsule 16:17: BID, 0 [place] 00 Refill(s) cephalexin 2016-0 Yes 500 mg = 1 M emoria 500 mg oral 1-07 cap, PO, l capsule 16:17: BID, 0 [place] 00 Refill(s) cephalexin 2016-0 Yes 500 [...] cap, PO, l capsule 16:17: BID, 0 [place] 00 Refill(s) cephalexin 2016-0 Yes 500 [...] cap, PO, l capsule 16:17: BID, 0 [place] 00 Refill(s) cephalexin 2016-0 Yes 500 mg = 1 M emoria 500 mg oral 1-07 cap, PO, l capsule 16:17: BID, 0 [place] 00 Refill(s) cephalexin 2016-0 Yes 500 [...] cap, PO, l capsule 16:17: BID, 0 [place] 00 Refill(s) cephalexin 2015-0 Yes 500 mg = 1 M emoria 500 mg oral 1-07 cap, PO, l capsule 16:17: BID, 0 [place] 00 Refill(s) cephalexin 2015-0 Yes 500 mg = 1 M emoria 500 mg oral 1-07 cap, PO, l capsule 16:17: BID, 0 [place] 00 Refill(s) cephalexin 2016-0 Yes 500 [...] PO, l Oral Tablet 16:16: Bedtime, 0 [place] [Lipitor] 00 Refill(s) duloxetine Yes 60 mg = 1 Me moria 60 MG 1-07 cap, PO, l Enteric 16:16: Daily, 0 [place] 00 Refill(s) Capsule [Cymbalta] atorvastati 0 Yes 40 mg = 1 M emoria n 40 MG 1-07 tab, PO, l Oral Tablet 16:16: Bedtime, 0 [place] [Lipitor] 00 Refill(s) duloxetine 0 Yes 60 mg = 1 Me mor[place] 60 MG 1-07 cap, PO, l Enteric 16:16: Daily, 0 [place] 00 Refill(s) Capsule [Cymbalta] atorvastati 0 Yes 40 mg = 1 M emoria n 40 MG 1-07 tab, PO, l Oral Tablet 16:16: Bedtime, 0 [place] [Lipitor] 00 Refill(s) duloxetine 0 Yes 60 [...] PO, l Oral Tablet 16:16: Bedtime, 0 [place] [Lipitor] 00 Refill(s) duloxetine Yes 60 [...] PO, l Oral Tablet 16:16: Bedtime, 0 [place] [Lipitor] 00 Refill(s) duloxetine Yes 60 [...] PO, l Oral Tablet 16:16: Bedtime, 0 [place] [Lipitor] 00 Refill(s) duloxetine 2016 Yes 60 mg = 1 Me mor[place] 60 MG -07 cap, PO, l Enteric 16:16: Daily, 0 [place] 00 Refill(s) Capsule [Cymbalta] atorvastati Yes 40 mg = 1 M emoria n 40 MG -07 tab, PO, l Oral Tablet 16:16: Bedtime, 0 [place] [Lipitor] 00 Refill(s) duloxetine Yes 60 mg = 1 Me mor[place] 60 MG -07 cap, PO, l Enteric 16:16: Daily, 0 [place] 00 Refill(s) Capsule [Cymbalta] atorvastati Yes 40 mg = 1 M emoria n 40 MG 1-07 tab, PO, l Oral Tablet 16:16: Bedtime, 0 [place] [Lipitor] 00 Refill(s) duloxetine 2016 Yes 60 mg = 1 Me mor[place] 60 MG -07 cap, PO, l Enteric 16:16: Daily, 0 [...] PO, l Oral Tablet 16:16: Bedtime, 0 [place] [Lipitor] 00 Refill(s) duloxetine Yes 60 mg = 1 Me mor[place] 60 MG 1-07 cap, PO, l Enteric 16:16: Daily, 0 [place] 00 Refill(s) Capsule [Cymbalta] atorvastati Yes 40 mg = 1 M emoria n 40 MG 1-07 tab, PO, l Oral Tablet 16:16: Bedtime, 0 [place] [Lipitor] 00 Refill(s) duloxetine Yes 60 mg = 1 Me mor[place] 60 MG 1-07 cap, PO, l Enteric 16:16: Daily, 0 [place] 00 Refill(s) Capsule [Cymbalta] atorvastati Yes 40 mg = 1 M emoria n 40 MG 1-07 tab, PO, l Oral Tablet 16:16: Bedtime, 0 [place] [Lipitor] 00 Refill(s) duloxetine Yes 60 mg = 1 Me mor[place] 60 MG 1-07 cap, PO, l Enteric 16:16: Daily, 0 [place] 00 Refill(s) Capsule [Cymbalta] atorvastati Yes 40 mg = 1 M emoria n 40 MG 1-07 tab, PO, l Oral Tablet 16:16: Bedtime, 0 [place] [Lipitor] 00 Refill(s) duloxetine Yes 60 [...] PO, l Oral Tablet 16:16: Bedtime, 0 [place] [Lipitor] 00 Refill(s) duloxetine Yes 60 mg = 1 Me mor[place] 60 MG 1-07 cap, PO, l Enteric 16:16: Daily, 0 [place] 00 Refill(s) Capsule [Cymbalta] atorvastati Yes 40 mg = 1 M emoria n 40 MG 1-07 tab, PO, l Oral Tablet 16:16: Bedtime, 0 [place] [Lipitor] 00 Refill(s) duloxetine Yes 60 [...] PO, l Oral Tablet 16:16: Bedtime, 0 [place] [Lipitor] 00 Refill(s) duloxetine Yes 60 [...] PO, l Oral Tablet 16:16: Bedtime, 0 [place] [Lipitor] 00 Refill(s) duloxetine Yes 60 mg = 1 Me mor[place] 60 MG 1-07 cap, PO, l Enteric 16:16: Daily, 0 [place] 00 Refill(s) Capsule [Cymbalta] atorvastati Yes 40 mg = 1 M emoria n 40 MG 1-07 tab, PO, l Oral Tablet 16:16: Bedtime, 0 [place] [Lipitor] 00 Refill(s) duloxetine Yes 60 mg = 1 Me mor[place] 60 MG 1-07 cap, PO, l Enteric 16:16: Daily, 0 [place] 00 Refill(s) Capsule [Cymbalta] atorvastati Yes 40 mg = 1 M emoria n 40 MG 1-07 tab, PO, l Oral Tablet 16:16: Bedtime, 0 [place] [Lipitor] 00 Refill(s) duloxetine Yes 60 [...] PO, l Oral Tablet 16:16: Bedtime, 0 [place] [Lipitor] 00 Refill(s) duloxetine Yes 60 mg = 1 Me mor[place] 60 MG 1-07 cap, PO, l Enteric 16:16: Daily, 0 [place] 00 Refill(s) Capsule [Cymbalta] atorvastati Yes 40 mg = 1 M emoria n 40 MG 1-07 tab, PO, l Oral Tablet 16:16: Bedtime, 0 [place] [Lipitor] 00 Refill(s) duloxetine Yes 60 [...] PO, l Oral Tablet 16:16: Bedtime, 0 [place] [Lipitor] 00 Refill(s) duloxetine Yes 60 [...] PO, l Oral Tablet 16:16: Bedtime, 0 [place] [Lipitor] 00 Refill(s) duloxetine Yes 60 mg = 1 Me mor[place] 60 MG 1-07 cap, PO, l Enteric 16:16: Daily, 0 [place] 00 Refill(s) Capsule [Cymbalta] atorvastati Yes 40 mg = 1 M emoria n 40 MG 1-07 tab, PO, l Oral Tablet 16:16: Bedtime, 0 [place] [Lipitor] 00 Refill(s) duloxetine Yes 60 [...] PO, l Oral Tablet 16:16: Bedtime, 0 [place] [Lipitor] 00 Refill(s) duloxetine Yes 60 mg = 1 Me [place] 60 MG 1-07 cap, PO, l Enteric 16:16: Daily, 0 [place] 00 Refill(s) Capsule [Cymbalta] atorvastati Yes 40 mg = 1 M emoria n 40 MG 1-07 tab, PO, l Oral Tablet 16:16: Bedtime, 0 [place] [Lipitor] 00 Refill(s) duloxetine Yes 60 mg = 1 Me mor[place] 60 MG 1-07 cap, PO, l Enteric 16:16: Daily, 0 [place] 00 Refill(s) Capsule [Cymbalta] atorvastati Yes 40 mg = 1 M emoria n 40 MG 1-07 tab, PO, l Oral Tablet 16:16: Bedtime, 0 [place] [Lipitor] 00 Refill(s) duloxetine Yes 60 mg = 1 Me mor[place] 60 MG 1-07 cap, PO, l Enteric 16:16: Daily, 0 [place] 00 Refill(s) Capsule [Cymbalta] atorvastati Yes 40 mg = 1 M emoria n 40 MG 1-07 tab, PO, l Oral Tablet 16:16: Bedtime, 0 [place] [Lipitor] 00 Refill(s) duloxetine Yes 60 mg = 1 Me mor[place] 60 MG 1-07 cap, PO, l Enteric 16:16: Daily, 0 [place] 00 Refill(s) Capsule [Cymbalta] atorvastati Yes 40 mg = 1 M emoria n 40 MG 1-07 tab, PO, l Oral Tablet 16:16: Bedtime, 0 [place] [Lipitor] 00 Refill(s) duloxetine Yes 60 mg = 1 Me [place] 60 MG 1-07 cap, PO, l Enteric 16:16: Daily, 0 [place] 00 Refill(s) Capsule [Cymbalta] atorvastati Yes 40 mg = 1 M emoria n 40 MG 1-07 tab, PO, l Oral Tablet 16:16: Bedtime, 0 [place] [Lipitor] 00 Refill(s) duloxetine Yes 60 [...] [place] 00 Refill(s) Capsule [Cymbalta] duloxetine Yes 60 mg = 1 Me [place] 60 MG 1-07 cap, PO, l Enteric 16:16: Daily, 0 [place] 00 Refill(s) Capsule [Cymbalta] atorvastati Yes 40 mg = 1 M emoria n 40 MG 1-07 tab, PO, l Oral Tablet 16:16: Bedtime, 0 [place] [Lipitor] 00 Refill(s) atorvastati Yes 40 mg = 1 M emoria n 40 MG 1-07 tab, PO, l Oral Tablet 16:16: Bedtime, 0 [place] [Lipitor] 00 Refill(s) duloxetine Yes 60 mg = 1 Me moria 60 MG 1-07 cap, PO, l Enteric 16:16: Daily, 0 [place] Coated 00 Refill(s) Capsule [Cymbalta] atorvastati Yes 40 mg = 1 M emoria n 40 MG 1-07 tab, PO, l Oral Tablet 16:16: Bedtime, 0 [place] [Lipitor] 00 Refill(s) duloxetine Yes 60 [...] PO, l Oral Tablet 16:16: Bedtime, 0 [place] [Lipitor] 00 Refill(s) duloxetine Yes 60 mg = 1 Me moria 60 MG 1-07 cap, PO, l Enteric 16:16: Daily, 0 [place] Coated 00 Refill(s) Capsule [Cymbalta] atorvastati Yes 40 mg = 1 M emoria n 40 MG 1-07 tab, PO, l Oral Tablet 16:16: Bedtime, 0 [place] [Lipitor] 00 Refill(s) duloxetine Yes 60 [...] PO, l Oral Tablet 16:16: Bedtime, 0 [place] [Lipitor] 00 Refill(s) duloxetine Yes 60 [...] PO, l Oral Tablet 16:16: Bedtime, 0 [place] [Lipitor] 00 Refill(s) duloxetine Yes 60 [...] PO, l Oral Tablet 16:16: Bedtime, 0 [place] [Lipitor] 00 Refill(s) duloxetine 2016-0 Yes [...] PO, l Oral Tablet 16:16: Bedtime, 0 [place] [Lipitor] 00 Refill(s) duloxetine Yes 60 [...] PO, l Oral Tablet 16:16: Bedtime, 0 [place] [Lipitor] 00 Refill(s) duloxetine Yes 60 mg = 1 Me moria 60 MG 1-07 cap, PO, l Enteric 16:16: Daily, 0 [place] Coated 00 Refill(s) Capsule [Cymbalta] atorvastati Yes 40 mg = 1 M emoria n 40 MG 1-07 tab, PO, l Oral Tablet 16:16: Bedtime, 0 [place] [Lipitor] 00 Refill(s) duloxetine Yes 60 mg = 1 Me moria 60 MG 1-07 cap, PO, l Enteric 16:16: Daily, 0 [place] Coated 00 Refill(s) Capsule [Cymbalta] atorvastati Yes 40 mg = 1 M emoria n 40 MG 1-07 tab, PO, l Oral Tablet 16:16: Bedtime, 0 [place] [Lipitor] 00 Refill(s) duloxetine Yes 60 [...] PO, l Oral Tablet 16:16: Bedtime, 0 [place] [Lipitor] 00 Refill(s) duloxetine Yes 60 mg = 1 Me moria 60 MG 1-07 cap, PO, l Enteric 16:16: Daily, 0 [place] Coated 00 Refill(s) Capsule [Cymbalta] atorvastati Yes 40 mg = 1 M emoria n 40 MG 1-07 tab, PO, l Oral Tablet 16:16: Bedtime, 0 [place] [Lipitor] 00 Refill(s) duloxetine Yes 60 [...] PO, l Oral Tablet 16:16: Bedtime, 0 [place] [Lipitor] 00 Refill(s) duloxetine Yes 60 mg = 1 Me moria 60 MG 1-07 cap, PO, l Enteric 16:16: Daily, 0 [place] Co[place] 00 Refill(s) [facility]aps[place] [Cymbalta] atorvastati Yes 40 mg = 1 M emoria n 40 MG 1-07 tab, PO, l Oral Tablet 16:16: Bedtime, 0 [place] [Lipitor] 00 Refill(s) duloxetine Yes 60 [...] PO, l Oral Tablet 16:16: Bedtime, 0 [place] [Lipitor] 00 Refill(s) duloxetine Yes 60 mg = 1 [facility] [place] 60 MG 1-07 cap, PO, l Enteric 16:16: Daily, 0 [place] Co[place] 00 Refill(s) Capsule [Cymbalta] atorvastati Yes 40 mg = 1 M emoria n 40 MG 1-07 tab, PO, l Oral Tablet 16:16: Bedtime, 0 [place] [Lipitor] 00 Refill(s) duloxetine Yes 60 mg = 1 Me mor[facility] 60 MG 1-07 cap, PO, l Enteric 16:16: Daily, 0 [place] Co[place] 00 Refill(s) Capsule [Cymbalta] atorvastati Yes 40 mg = 1 M emoria n 40 MG 1-07 tab, PO, l Oral Tablet 16:16: Bedtime, 0 [place] [Lipitor] 00 Refill(s) duloxetine Yes 60 mg = 1 Me mor[facility] 60 MG 1-07 cap, PO, l Enteric 16:16: Daily, 0 [place] Co[place] 00 Refill(s) Capsule [Cymbalta] atorvastati Yes 40 mg = 1 M emoria n 40 MG 1-07 tab, PO, l Oral Tablet 16:16: Bedtime, 0 [place] [Lipitor] 00 Refill(s) duloxetine Yes 60 mg = 1 Me mor[place] 60 MG 1-07 cap, PO, l Enteric 16:16: Daily, 0 [place] Co[place] 00 Refill(s) Capsule [Cymbalta] atorvastati Yes 40 mg = 1 M emoria n 40 MG 1-07 tab, PO, l Oral Tablet 16:16: Bedtime, 0 [place] [Lipitor] 00 Refill(s) duloxetine Yes 60 mg = 1 Me mor[place] 60 MG 1-07 cap, PO, l Enteric 16:16: Daily, 0 [place] Co[place] 00 Refill(s) Capsule [Cymbalta] atorvastati Yes 40 mg = 1 M emoria n 40 MG 1-07 tab, PO, l Oral Tablet 16:16: Bedtime, 0 [place] [Lipitor] 00 Refill(s) promethazin Yes 25 [...] l oral tablet 16:15: PRN, 0 [facility] flaktia 00 Refill(s) sucralfate 0 Yes 1 gm [...] l oral tablet 16:15: PRN, 0 [facility] lfakita 00 Refill(s) sucralfate 2015-0 Yes 1 gm [...] oral tablet 16:15: PRN, 0 [facility] fl[place] Refill(s) sucralfate 2015-0 Yes 1 gm = [...] oral tablet 16:15: PRN, 0 [facility] flak[place] Refill(s) sucralfate 2015-0 Yes 1 gm = 1 Mem oria 1 g oral 1-07 tab, PO, l tablet 16:15: QID-Before [place] [facility], 0 Refill(s) sucralfate 2015-0 Yes 1 gm = 1 Mem oria 1 g oral 1-07 tab, PO, l tablet 16:15: QID-Before [place] [facility], 0 Refill(s) promethazin 2015-0 Yes 25 mg = 1 M emoria e 25 mg 1-07 tab, PO, l oral tablet 16:15: PRN, 0 [facility] flak[place] Refill(s) sucralfate 2015-0 Yes 1 gm = 1 Mem o[facility] 1 g oral 1-07 tab, PO, l tablet 16:15: QID-Before [place] [facility], 0 Refill(s) promethazin 2016-0 Yes 25 mg = 1 M emoria e 25 mg 1-07 tab, PO, l oral tablet 16:15: PRN, 0 [facility] fl[place] Refill(s) sucralfate 2015-0 Yes 1 gm = [...] tablet 16:15: QID-Before [place] [facility], 0 Refill(s) sucralfate 2015-0 Yes 1 [...] PRN, 0 [facility] flak[place] 00 Refill(s) sucralfate 2016- Yes 1 gm = 1 Mem oria [...] tab, PO, l Tablet 16:14: PRN, 0 [place] [Colcrys] 00 Refill(s) Colchicine Yes 0.6 [...] tab, PO, l Tablet 16:14: PRN, 0 [place] [Colcrys] 00 Refill(s) Colchicine Yes 0.6 mg = 1 M emoria 0.6 MG Oral 1-07 tab, PO, l Tablet 16:14: PRN, 0 [place] [Colcrys] 00 Refill(s) Colchicine 2016-0 Yes 0.6 mg = 1 M emoria 0.6 MG Oral 1-07 tab, PO, l Tablet 16:14: PRN, 0 [place] [Colcrys] 00 Refill(s) Colchicine 2016-0 Yes 0.6 mg = 1 M emoria 0.6 MG Oral 1-07 tab, PO, l Tablet 16:14: PRN, 0 [place] [Colcrys] 00 Refill(s) Colchicine 2016-0 Yes 0.6 mg = 1 M emoria 0.6 MG Oral 1-07 tab, PO, l Tablet 16:14: PRN, 0 [place] [Colcrys] 00 Refill(s) Colchicine 2016-0 Yes 0.6 mg = 1 M emoria 0.6 MG Oral -07 tab, PO, l Tablet 16:14: PRN, 0 [place] [Colcrys] 00 Refill(s) Colchicine 2016-0 Yes 0.6 mg = 1 M emoria 0.6 MG Oral -07 tab, PO, l Tablet 16:14: PRN, 0 [place] [Colcrys] 00 Refill(s) Colchicine 2016-0 Yes 0.6 mg = 1 M emoria 0.6 MG Oral -07 tab, PO, l Tablet 16:14: PRN, 0 [place] [Colcrys] 00 Refill(s) Colchicine 2016-0 Yes 0.6 mg = 1 M emoria 0.6 MG Oral -07 tab, PO, l Tablet 16:14: PRN, 0 [place] [Colcrys] 00 Refill(s) Colchicine 2016-0 Yes 0.6 mg = 1 M emoria 0.6 MG Oral 1-07 tab, PO, l Tablet 16:14: PRN, 0 [place] [Colcrys] 00 Refill(s) Colchicine 2016-0 Yes 0.6 mg = 1 M emoria 0.6 MG Oral 1-07 tab, PO, l Tablet 16:14: PRN, 0 [place] [Colcrys] 00 Refill(s) Colchicine 2016-0 Yes 0.6 mg = 1 M emoria 0.6 MG Oral 1-07 tab, PO, l Tablet 16:14: PRN, 0 [place] [Colcrys] 00 Refill(s) Colchicine [id number] Yes 0.6 mg = 1 M emoria 0.6 MG Oral 1-07 tab, PO, l Tablet 16:14: PRN, 0 [place] [Colcrys] 00 Refill(s) Colchicine 2016-0 Yes 0.6 mg = 1 M emoria 0.6 MG Oral 1-07 tab, PO, l Tablet 16:14: PRN, 0 [place] [Colcrys] 00 Refill(s) Colchicine 2016-0 Yes [...] tab, PO, l Tablet 16:14: PRN, 0 [place] [Colcrys] 00 Refill(s) Colchicine 2016-0 Yes [...] tab, PO, l Tablet 16:14: PRN, 0 [place] [Colcrys] 00 Refill(s) Colchicine 2016-0 Yes 0.6 mg = 1 M emoria 0.6 MG Oral 1-07 tab, PO, l Tablet 16:14: PRN, 0 [place] [Colcrys] 00 Refill(s) Colchicine [id number] Yes 0.6 mg = 1 M emoria 0.6 MG Oral 1-07 tab, PO, l Tablet 16:14: PRN, 0 [place] [Colcrys] 00 Refill(s) Colchicine 2016-0 Yes [...] tab, PO, l Tablet 16:14: PRN, 0 [place] [Colcrys] 00 Refill(s) Colchicine 2016-0 Yes 0.6 mg = 1 M emoria 0.6 MG Oral -07 tab, PO, l Tablet 16:14: PRN, 0 [place] [Colcrys] 00 Refill(s) Colchicine 2016-0 Yes 0.6 mg = 1 M emoria 0.6 MG Oral -07 tab, PO, l Tablet 16:14: PRN, 0 [place] [Colcrys] 00 Refill(s) Colchicine 2016-0 Yes 0.6 mg = 1 M emoria 0.6 MG Oral 1-07 tab, PO, l Tablet 16:14: PRN, 0 [place] [Colcrys] 00 Refill(s) Colchicine 2016-0 Yes [...] tab, PO, l Tablet 16:14: PRN, 0 [place] [Colcrys] 00 Refill(s) Colchicine 2016-0 Yes 0.6 mg = 1 M emoria 0.6 MG Oral 1-07 tab, PO, l Tablet 16:14: PRN, 0 [place] [Colcrys] 00 Refill(s) Colchicine 2016-0 Yes 0.6 mg = 1 M emoria 0.6 MG Oral 1-07 tab, PO, l Tablet 16:14: PRN, 0 [place] [Colcrys] 00 Refill(s) Colchicine 2016-0 Yes 0.6 mg = 1 M emoria 0.6 MG Oral -07 tab, PO, l Tablet 16:14: PRN, 0 [place] [Colcrys] 00 Refill(s) Colchicine 2016-0 Yes 0.6 mg = 1 M emoria 0.6 MG Oral -07 tab, PO, l Tablet 16:14: PRN, 0 [place] [Colcrys] 00 Refill(s) Colchicine 2016-0 Yes 0.6 mg = 1 M emoria 0.6 MG Oral -07 tab, PO, l Tablet 16:14: PRN, 0 [place] [Colcrys] 00 Refill(s) Colchicine 2016-0 Yes [...] tab, PO, l Tablet 16:14: PRN, 0 [place] [Colcrys] 00 Refill(s) Colchicine 2016-0 Yes 0.6 mg = 1 M emoria 0.6 MG Oral 1-07 tab, PO, l Tablet 16:14: PRN, 0 [place] [Colcrys] 00 Refill(s) Colchicine [id number] Yes 0.6 [...] tab, PO, l Tablet 16:14: PRN, 0 [place] [Colcrys] 00 Refill(s) Colchicine 2016-0 Yes 0.6 mg = 1 M emoria 0.6 MG Oral -07 tab, PO, l Tablet 16:14: PRN, 0 [place] [Colcrys] 00 Refill(s) Colchicine 2016-0 Yes 0.6 mg = 1 M emoria 0.6 MG Oral -07 tab, PO, l Tablet 16:14: PRN, 0 [place] [Colcrys] 00 Refill(s) Colchicine 2016-0 Yes 0.6 mg = 1 M emoria 0.6 MG Oral 1-07 tab, PO, l Tablet 16:14: PRN, 0 [place] [Colcrys] 00 Refill(s) Colchicine 2016-0 Yes 0.6 mg = 1 M emoria 0.6 MG Oral 1-07 tab, PO, l Tablet 16:14: PRN, 0 [place] [Colcrys] 00 Refill(s) Colchicine 2016-0 Yes 0.6 mg = 1 M emoria 0.6 MG Oral 1-07 tab, PO, l Tablet 16:14: PRN, 0 [place] [Colcrys] 00 Refill(s) Colchicine [id number] Yes 0.6 mg = 1 M emoria 0.6 MG Oral 1-07 tab, PO, l Tablet 16:14: PRN, 0 [place] [Colcrys] 00 Refill(s) Colchicine 2016-0 Yes 0.6 mg = 1 M emoria 0.6 MG Oral 1-07 tab, PO, l Tablet 16:14: PRN, 0 [place] [Colcrys] 00 Refill(s) Colchicine 2016-0 Yes 0.6 mg = 1 M emoria 0.6 MG Oral 1-07 tab, PO, l Tablet 16:14: PRN, 0 [place] [Colcrys] 00 Refill(s) Colchicine 2016-0 Yes [...] tab, PO, l Tablet 16:14: PRN, 0 [place] [Colcrys] 00 Refill(s) Colchicine 2016-0 Yes 0.6 mg = 1 M emoria 0.6 MG Oral 1-07 tab, PO, l Tablet 16:14: PRN, 0 [place] [Colcrys] 00 Refill(s) Colchicine 2016-0 Yes [...] tab, PO, l Tablet 16:14: PRN, 0 [place] [Colcrys] 00 Refill(s) Colchicine 2016-0 Yes 0.6 mg = 1 M emoria 0.6 MG Oral 1-07 tab, PO, l Tablet 16:14: PRN, 0 [place] [Colcrys] 00 Refill(s) Colchicine 2016-0 Yes [...] tab, PO, l Tablet 16:14: PRN, 0 [place] [Colcrys] 00 Refill(s) Colchicine 2016-0 Yes 0.6 mg = 1 M emoria 0.6 MG Oral 1-07 tab, PO, l Tablet 16:14: PRN, 0 [place] [Colcrys] 00 Refill(s) Colchicine [id number] Yes 0.6 mg = 1 M emoria 0.6 MG Oral 07 tab, PO, l Tablet 16:14: PRN, 0 [place] [Colcrys] 00 Refill(s) Colchicine 2016-0 Yes 0.6 mg = 1 M emoria 0.6 MG Oral -07 tab, PO, l Tablet 16:14: PRN, 0 [place] [Colcrys] 00 Refill(s) Colchicine 2016-0 Yes 0.6 mg = 1 M emoria 0.6 MG Oral -07 tab, PO, l Tablet 16:14: PRN, 0 [place] [Colcrys] 00 Refill(s) Colchicine 2016- Yes 0.6 mg = 1 M emoria 0.6 MG Oral - tab, PO, l Tablet 16:14: PRN, 0 [place] [Colcrys] 00 Refill(s) Colchicine 2016- Yes 0.6 mg = 1 M emoria 0.6 MG Oral 11-07 tab, PO, l Tablet 16:14: PRN, 0 [place] [Colcrys] 00 Refill(s) Colchicine 2016- Yes 0.6 mg = 1 M emoria 0.6 MG Oral 11-07 tab, PO, l Tablet 16:14: PRN, 0 [place] [Colcrys] 00 Refill(s) Colchicine 2016-0 Yes 0.6 mg = 1 M emoria 0.6 MG Oral 11-07 tab, PO, l Tablet 16:14: PRN, 0 [place] [Colcrys] 00 Refill(s) Colchicine 2016-0 Yes 0.6 mg = 1 M emoria 0.6 MG Oral -07 tab, PO, l Tablet 16:14: PRN, 0 [place] [Colcrys] 00 Refill(s) allopurinol 2016 Yes 300 mg = 1 Mem[facility] 300 mg oral -07 tab, PO, l tablet 16:13: Daily, 0 [place] 00 Refill(s) allopurinol 2016 Yes 300 mg = 1 [facility] 300 mg oral -07 tab, PO, l tablet 16:13: Daily, 0 [place] 00 Refill(s) allopurinol 2016 Yes 300 mg = 1 [facility] 300 mg oral 1-07 tab, PO, l tablet 16:13: Daily, 0 [place] 00 Refill(s) allopurinol Yes 300 mg = 1 [facility] 300 mg oral 1-07 tab, PO, l tablet 16:13: Daily, 0 [place] 00 Refill(s) allopurinol Yes 300 mg = 1 [facility] 300 mg oral 1-07 tab, PO, l tablet 16:13: Daily, 0 [place] 00 Refill(s) allopurinol Yes 300 mg = 1 [facility] 300 mg oral 1-07 tab, PO, l tablet 16:13: Daily, 0 [place] 00 Refill(s) allopurinol Yes 300 mg = 1 [facility] 300 mg oral 1-07 tab, PO, l tablet 16:13: Daily, 0 [place] 00 Refill(s) allopurinol Yes 300 mg = 1 [facility] 300 mg oral 1-07 tab, PO, l tablet 16:13: Daily, 0 [place] 00 Refill(s) allopurinol Yes 300 mg = 1 [facility] 300 mg oral 1-07 tab, PO, l tablet 16:13: Daily, 0 [place] 00 Refill(s) allopurinol Yes 300 mg = 1 [facility] 300 mg oral 1-07 tab, PO, l tablet 16:13: Daily, 0 [place] 00 Refill(s) allopurinol Yes 300 mg = 1 [facility] 300 mg oral 1-07 tab, PO, l tablet 16:13: Daily, 0 [place] 00 Refill(s) allopurinol Yes 300 mg = 1 [facility] 300 mg oral 1-07 tab, PO, l tablet 16:13: Daily, 0 [place] 00 Refill(s) allopurinol Yes 300 mg = 1 [facility] 300 mg oral 1-07 tab, PO, l tablet 16:13: Daily, 0 [place] 00 Refill(s) allopurinol 0 Yes 300 [...] tab, PO, l tablet 16:13: Daily, 0 [place] 00 Refill(s) allopurinol Yes 300 mg = 1 [facility] 300 mg oral 1-07 tab, PO, l tablet 16:13: Daily, 0 [place] 00 Refill(s) allopurinol Yes 300 mg = 1 [facility] 300 mg oral 1-07 tab, PO, l tablet 16:13: Daily, 0 [place] 00 Refill(s) allopurinol Yes 300 mg = 1 [facility] 300 mg oral 1-07 tab, PO, l tablet 16:13: Daily, 0 [place] 00 Refill(s) allopurinol Yes 300 mg = 1 [facility] 300 mg oral 1-07 tab, PO, l tablet 16:13: Daily, 0 [place] 00 Refill(s) allopurinol Yes 300 mg = 1 [facility] 300 mg oral 1-07 tab, PO, l tablet 16:13: Daily, 0 [place] 00 Refill(s) allopurinol Yes 300 mg = 1 [facility] 300 mg oral 1-07 tab, PO, l tablet 16:13: Daily, 0 [place] 00 Refill(s) allopurinol Yes 300 mg [...] tab, PO, l tablet 16:13: Daily, 0 [place] 00 Refill(s) allopurinol Yes 300 mg = 1 [facility] 300 mg oral 1-07 tab, PO, l tablet 16:13: Daily, 0 [place] 00 Refill(s) allopurinol Yes 300 mg = 1 [facility] 300 mg oral 1-07 tab, PO, l tablet 16:13: Daily, 0 [place] 00 Refill(s) allopurinol Yes 300 mg = 1 [facility] 300 mg oral 1-07 tab, PO, l tablet 16:13: Daily, 0 [place] 00 Refill(s) allopurinol Yes 300 mg = 1 [facility] 300 mg oral 1-07 tab, PO, l tablet 16:13: Daily, 0 [place] 00 Refill(s) allopurinol Yes 300 mg = 1 [facility] 300 mg oral 1-07 tab, PO, l tablet 16:13: Daily, 0 [place] 00 Refill(s) allopurinol Yes 300 mg = 1 [facility] 300 mg oral 1-07 tab, PO, l tablet 16:13: Daily, 0 [place] 00 Refill(s) allopurinol Yes 300 mg = 1 [facility] 300 mg oral 1-07 tab, PO, l tablet 16:13: Daily, 0 [place] 00 Refill(s) allopurinol Yes 300 mg = 1 [facility] 300 mg oral 1-07 tab, PO, l tablet 16:13: Daily, 0 [place] 00 Refill(s) allopurinol Yes 300 mg = 1 [facility] 300 mg oral 1-07 tab, PO, l tablet 16:13: Daily, 0 [place] 00 Refill(s) allopurinol Yes 300 mg = 1 [facility] 300 mg oral 1-07 tab, PO, l tablet 16:13: Daily, 0 [place] 00 Refill(s) allopurinol 0 Yes 300 [...] tab, PO, l tablet 16:13: Daily, 0 [place] 00 Refill(s) allopurinol Yes 300 mg = 1 [facility] 300 mg oral 1-07 tab, PO, l tablet 16:13: Daily, 0 [place] 00 Refill(s) allopurinol Yes 300 mg = 1 [facility] 300 mg oral 1-07 tab, PO, l tablet 16:13: Daily, 0 [place] 00 Refill(s) allopurinol Yes 300 mg [...] tab, PO, l tablet 16:13: Daily, 0 [place] 00 Refill(s) allopurinol Yes 300 mg = 1 [facility] 300 mg oral 1-07 tab, PO, l tablet 16:13: Daily, 0 [place] 00 Refill(s) allopurinol Yes 300 mg = 1 [facility] 300 mg oral 1-07 tab, PO, l tablet 16:13: Daily, 0 [place] 00 Refill(s) allopurinol Yes 300 mg = 1 [facility] 300 mg oral 1-07 tab, PO, l tablet 16:13: Daily, 0 [place] 00 Refill(s) allopurinol Yes 300 mg = 1 [facility] 300 mg oral 1-07 tab, PO, l tablet 16:13: Daily, 0 [place] 00 Refill(s) allopurinol Yes 300 mg = 1 [facility] 300 mg oral 1-07 tab, PO, l tablet 16:13: Daily, 0 [place] 00 Refill(s) allopurinol Yes 300 mg = 1 [facility] 300 mg oral 1-07 tab, PO, l tablet 16:13: Daily, 0 [place] 00 Refill(s) allopurinol Yes 300 mg = 1 [facility] 300 mg oral 1-07 tab, PO, l tablet 16:13: Daily, 0 [place] 00 Refill(s) allopurinol Yes 300 mg [...] tab, PO, l tablet 16:13: Daily, 0 [place] 00 Refill(s) allopurinol Yes 300 mg [...] tab, PO, l tablet 16:13: Daily, 0 [place] 00 Refill(s) allopurinol Yes 300 mg = 1 [facility] 300 mg oral 1-07 tab, PO, l tablet 16:13: Daily, 0 [place] 00 Refill(s) allopurinol Yes 300 mg = 1 [facility] 300 mg oral 1-07 tab, PO, l tablet 16:13: Daily, 0 [place] 00 Refill(s) allopurinol Yes 300 mg = 1 [facility] 300 mg oral 1-07 tab, PO, l tablet 16:13: Daily, 0 [place] 00 Refill(s) allopurinol Yes 300 mg = 1 [facility] 300 mg oral 1-07 tab, PO, l tablet 16:13: Daily, 0 [place] 00 Refill(s) allopurinol Yes 300 mg = 1 [facility] 300 mg oral 1-07 tab, PO, l tablet 16:13: Daily, 0 [place] 00 Refill(s) allopurinol Yes 300 mg = 1 [facility] 300 mg oral 1-07 tab, PO, l tablet 16:13: Daily, 0 [place] 00 Refill(s) allopurinol Yes 300 mg = 1 [facility] 300 mg oral 1-07 tab, PO, l tablet 16:13: Daily, 0 [place] 00 Refill(s) allopurinol Yes 300 mg = 1 [facility] 300 mg oral 1-07 tab, PO, l tablet 16:13: Daily, 0 [place] 00 Refill(s) allopurinol Yes 300 mg = 1 [facility] 300 mg oral 1-07 tab, PO, l tablet 16:13: Daily, 0 [place] 00 Refill(s) allopurinol Yes 300 mg = 1 [facility] 300 mg oral 1-07 tab, PO, l tablet 16:13: Daily, 0 [place] 00 Refill(s) allopurinol Yes 300 mg = 1 [facility] 300 mg oral 1-07 tab, PO, l tablet 16:13: Daily, 0 [place] 00 Refill(s) allopurinol Yes 300 mg = 1 [facility] 300 mg oral 1-07 tab, PO, l tablet 16:13: Daily, 0 [place] 00 Refill(s) allopurinol Yes 300 mg = 1 [facility] 300 mg oral 1-07 tab, PO, l tablet 16:13: Daily, 0 [place] 00 Refill(s) allopurinol Yes 300 mg = 1 [facility] 300 mg oral 1-07 tab, PO, l tablet 16:13: Daily, 0 [place] 00 Refill(s) allopurinol Yes 300 mg = 1 [facility] 300 mg oral 1-07 tab, PO, l tablet 16:13: Daily, 0 [place] 00 Refill(s) Unknown Yes Refill(s) [facility] 1-07 0 l Medication 16:12: [place] Unknown 0 Yes Refill(s) [facility] 1-07 0 l Medication 16:12: [place] Unknown 0 Yes Refill(s) [facility] 1-07 0 l Medication 16:12: [place] Unknown Yes Refill(s) [facility] 1-07 0 l Medication 16:12: [place] Unknown Yes Refill(s) [facility] 1-07 0 l Medication 16:12: [place] Unknown Yes Refill(s) [facility] 1-07 [...] Unknown 2015-0 Yes Refill(s) [facility] 1- 0 l Medication 16:12: Unknown Yes Refill(s) [...] l de 50 MG 16:10: TID, 0 [place] Oral Tablet 00 Refill(s) Hydralazine Yes [...] l de 50 MG 16:10: TID, 0 [place] Oral Tablet 00 Refill(s) Hydralazine 2015-0 Yes 50 mg = 1 M em[facility] Hydrochlori 07 tab, PO, l de 50 MG 16:10: TID, 0 [place] Oral Tablet 00 Refill(s) Hydralazine 2015-0 Yes 50 mg = 1 M [facility] Hydrochlori -07 tab, PO, l de 50 MG 16:10: TID, 0 [place] Oral Tablet 00 Refill(s) Hydralazine 2016-0 Yes 50 mg = 1 M [facility] Hydrochlori -07 tab, PO, l de 50 MG 16:10: TID, 0 [place] Oral Tablet 00 Refill(s) Hydralazine 2016-0 Yes 50 mg = 1 M [facility] Hydrochlori -07 tab, PO, l de 50 MG 16:10: TID, 0 [place] Oral Tablet 00 Refill(s) Hydralazine 2016-0 Yes 50 mg = 1 M [facility] Hydrochlori -07 tab, PO, l de 50 MG 16:10: TID, 0 [place] Oral Tablet 00 Refill(s) Hydralazine 2015-0 Yes 50 mg = 1 M [facility] Hydrochlori -07 tab, PO, l de 50 MG 16:10: TID, 0 [place] Oral Tablet 00 Refill(s) Hydralazine 0 Yes 50 mg = 1 [facility] Hydrochlori 07 tab, PO, l de 50 MG 16:10: TID, 0 [place] Oral Tablet 00 Refill(s) Hydralazine 0 Yes 50 mg = 1 [facility] Hydrochlori 11-07 tab, PO, l de 50 MG 16:10: TID, 0 [place] Oral Tablet 00 Refill(s) Hydralazine 0 Yes 50 mg = 1 M [facility] Hydrochlori 11-07 tab, PO, l de 50 MG 16:10: TID, 0 [place] Oral Tablet 00 Refill(s) Hydralazine 0 Yes 50 mg = 1 M [facility] Hydrochlori 11-07 tab, PO, l de 50 MG 16:10: TID, 0 [place] Oral Tablet 00 Refill(s) Hydralazine 0 Yes 50 mg = 1 [facility] Hydrochlori 11-07 tab, PO, l de 50 MG 16:10: TID, 0 [place] Oral Tablet 00 Refill(s) Hydralazine 0 [...] l de 50 MG 16:10: TID, 0 [place] Oral Tablet 00 Refill(s) Hydralazine 0 Yes 50 mg = 1 M [facility] Hydrochlori 07 tab, PO, l de 50 MG 16:10: TID, 0 [place] Oral Tablet 00 Refill(s) Hydralazine 2015-0 Yes 50 mg = 1 [facility] Hydrochlori 07 tab, PO, l de 50 MG 16:10: TID, 0 [place] Oral Tablet 00 Refill(s) Hydralazine 2015-0 Yes 50 mg = 1 [facility] Hydrochlori 1-07 tab, PO, l de 50 MG 16:10: TID, 0 [place] Oral Tablet 00 Refill(s) Hydralazine 0 Yes 50 mg = 1 [facility] Hydrochlori 1-07 tab, PO, l de 50 MG 16:10: TID, 0 [place] Oral Tablet 00 Refill(s) Hydralazine 0 Yes 50 mg = 1 [facility] Hydrochlori -07 tab, PO, l de 50 MG 16:10: TID, 0 [place] Oral Tablet 00 Refill(s) Hydralazine 0 [...] l de 50 MG 16:10: TID, 0 [place] Oral Tablet 00 Refill(s) Hydralazine 0 Yes 50 mg = 1 M [facility] Hydrochlori -07 tab, PO, l de 50 MG 16:10: TID, 0 [place] Oral Tablet 00 Refill(s) Hydralazine 0 [...] l de 50 MG 16:10: TID, 0 [place] Oral Tablet 00 Refill(s) Hydralazine 2015-0 [...] l de 50 MG 16:10: TID, 0 [place] Oral Tablet 00 Refill(s) Hydralazine 0 Yes 50 mg = 1 [facility] Hydrochlori 07 tab, PO, l de 50 MG 16:10: TID, 0 [place] Oral Tablet 00 Refill(s) Hydralazine 0 Yes 50 mg = 1 M [facility] Hydrochlori -07 tab, PO, l de 50 MG 16:10: TID, 0 [place] Oral Tablet 00 Refill(s) Hydralazine 0 Yes 50 mg = 1 [facility] Hydrochlori 07 tab, PO, l de 50 MG 16:10: TID, 0 [place] Oral Tablet 00 Refill(s) Hydralazine 2015-0 Yes 50 mg = 1 [facility] Hydrochlori -07 tab, PO, l de 50 MG 16:10: TID, 0 [place] Oral Tablet 00 Refill(s) Hydralazine 2015-0 Yes 50 mg = 1 [facility] Hydrochlori -07 tab, PO, l de 50 MG 16:10: TID, 0 [place] Oral Tablet 00 Refill(s) Hydralazine [id number] Yes 50 mg = 1 M [facility] Hydrochlori -07 tab, PO, l de 50 MG 16:10: TID, 0 [place] Oral Tablet 00 Refill(s) Hydralazine [id number] Yes 50 mg = 1 [facility] Hydrochlori 07 tab, PO, l de 50 MG 16:10: TID, 0 [place] Oral Tablet 00 Refill(s) Hydralazine 0 Yes 50 mg = 1 [facility] Hydrochlori 07 tab, PO, l de 50 MG 16:10: TID, 0 [place] Oral Tablet 00 Refill(s) Hydralazine 0 Yes 50 mg = 1 [facility] Hydrochlori 07 tab, PO, l de 50 MG 16:10: TID, 0 [place] Oral Tablet 00 Refill(s) Hydralazine 0 Yes 50 mg = 1 [facility] Hydrochlori -07 tab, PO, l de 50 MG 16:10: TID, 0 [place] Oral Tablet 00 Refill(s) Hydralazine 0 Yes 50 mg = 1 [facility] Hydrochlori 07 tab, PO, l de 50 MG 16:10: TID, 0 [place] Oral Tablet 00 Refill(s) Hydralazine 0 Yes 50 mg = 1 [facility] Hydrochlori 07 tab, PO, l de 50 MG 16:10: TID, 0 [place] Oral Tablet 00 Refill(s) Hydralazine [id number] Yes 50 mg = 1 [facility] Hydrochlori -07 tab, PO, l de 50 MG 16:10: TID, 0 [place] Oral Tablet 00 Refill(s) Hydralazine 0 Yes 50 mg = 1 [facility] Hydrochlori -07 tab, PO, l de 50 MG 16:10: TID, 0 [place] Oral Tablet 00 Refill(s) Hydralazine [id number] Yes 50 mg = 1 [facility] Hydrochlori -07 tab, PO, l de 50 MG 16:10: TID, 0 [place] Oral Tablet 00 Refill(s) Hydralazine [id number] Yes 50 mg = 1 [facility] Hydrochlori 1-07 tab, PO, l de 50 MG 16:10: TID, 0 [place] Oral Tablet 00 Refill(s) Hydralazine 0 Yes 50 mg = 1 [facility] Hydrochlori 1-07 tab, PO, l de 50 MG 16:10: TID, 0 [place] Oral Tablet 00 Refill(s) Hydralazine 0 Yes 50 mg = 1 [facility] Hydrochlori -07 tab, PO, l de 50 MG 16:10: TID, 0 [place] Oral Tablet 00 Refill(s) Hydralazine Yes [...] l de 50 MG 16:10: TID, 0 [place] Oral Tablet 00 Refill(s) Hydralazine 0 [...] l de 50 MG 16:10: TID, 0 [place] Oral Tablet 00 Refill(s) Hydralazine 0 Yes 50 mg = 1 [facility] Hydrochlori -07 tab, PO, l de 50 MG 16:10: TID, 0 [place] Oral Tablet 00 Refill(s) Hydralazine 0 Yes 50 mg = 1 [facility] Hydrochlori 1-07 tab, PO, l de 50 MG 16:10: TID, 0 [place] Oral Tablet 00 Refill(s) Hydralazine 0 Yes 50 mg = 1 [facility] Hydrochlori -07 tab, PO, l de 50 MG 16:10: TID, 0 [place] Oral Tablet 00 Refill(s) Hydralazine 0 Yes 50 mg = 1 [facility] Hydrochlori 07 tab, PO, l de 50 MG 16:10: TID, 0 [place] Oral Tablet 00 Refill(s) Hydralazine 0 Yes 50 mg = 1 [facility] Hydrochlori 07 tab, PO, l de 50 MG 16:10: TID, 0 [place] Oral Tablet 00 Refill(s) Hydralazine 0 Yes 50 mg = 1 M [facility] Hydrochlori 11-07 tab, PO, l de 50 MG 16:10: TID, 0 [place] Oral Tablet 00 Refill(s) Hydralazine 0 Yes 50 mg = 1 M [facility] Hydrochlori 11-07 tab, PO, l de 50 MG 16:10: TID, 0 [place] Oral Tablet 00 Refill(s) Hydralazine 0 Yes 50 mg = 1 M [facility] Hydrochlori 11-07 tab, PO, l de 50 MG 16:10: TID, 0 [place] Oral Tablet 00 Refill(s) Hydralazine 0 [...] l de 50 MG 16:10: TID, 0 [place] Oral Tablet 00 Refill(s) Hydralazine 0 Yes 50 mg = 1 M [place] Hydrochlori 07 tab, PO, l de 50 MG 16:10: TID, 0 [place] Oral Tablet 00 Refill(s) Hydralazine 0 Yes 50 mg = 1 M [place] Hydrochlori 07 tab, PO, l de 50 MG 16:10: TID, 0 [place] Oral Tablet 00 Refill(s) Hydralazine 2016-0 Yes 50 mg = 1 M [place] Hydrochlori -07 tab, PO, l de 50 MG 16:10: TID, 0 [place] Oral Tablet 00 Refill(s) Hydralazine 2016-0 Yes [...] 0 [place] Oral Tablet 00 Refill(s) lisinopril 2016-0 Yes 10 mg = 1 [facility] 10 mg oral -07 tab, PO, l tablet 16:09: BID, 0 [place] 00 Refill(s) lisinopril 2015-0 Yes 10 mg = 1 [facility] 10 mg oral -07 tab, PO, l tablet 16:09: BID, 0 [place] 00 Refill(s) lisinopril 2016-0 Yes 10 [...] tab, PO, l tablet 16:09: BID, 0 [place] 00 Refill(s) lisinopril 2016- Yes 10 mg [...] tab, PO, l tablet 16:09: BID, 0 [place] 00 Refill(s) lisinopril 2016-0 Yes 10 mg = 1 [facility] [place] 10 mg oral 1-07 tab, PO, l tablet 16:09: BID, 0 [place] 00 Refill(s) lisinopril 2015-0 Yes 10 mg = 1 [facility] 10 mg oral 1-07 tab, PO, l tablet 16:09: BID, 0 [place] 00 Refill(s) lisinopril 2015-0 Yes 10 mg = 1 [facility] 10 mg oral 1-07 tab, PO, l tablet 16:09: BID, 0 [place] 00 Refill(s) lisinopril 2015-0 Yes 10 mg = 1 [facility] [place] 10 mg oral 1-07 tab, PO, l tablet 16:09: BID, 0 [place] 00 Refill(s) lisinopril 2015-0 Yes 10 mg = 1 [facility] [place] 10 mg oral 1-07 tab, PO, l tablet 16:09: BID, 0 [place] 00 Refill(s) lisinopril 2016-0 Yes 10 mg = 1 [facility] [place] 10 mg oral 1-07 tab, PO, l tablet 16:09: BID, 0 [place] 00 Refill(s) lisinopril 2016-0 Yes 10 mg = 1 [facility] [place] 10 mg oral 1-07 tab, PO, l tablet 16:09: BID, 0 [place] 00 Refill(s) lisinopril 2016-0 Yes 10 [...] tab, PO, l tablet 16:09: BID, 0 [place] 00 Refill(s) lisinopril 2016-0 Yes 10 mg = 1 [facility] [place] 10 mg oral 1-07 tab, PO, l tablet 16:09: BID, 0 [place] 00 Refill(s) lisinopril 2016-0 Yes 10 mg = 1 [facility] [place] 10 mg oral 1-07 tab, PO, l tablet 16:09: BID, 0 [place] 00 Refill(s) lisinopril 2016-0 Yes 10 mg = 1 [facility] 10 mg oral 1-07 tab, PO, l tablet 16:09: BID, 0 [place] 00 Refill(s) lisinopril 2016-0 Yes 10 mg = 1 [place] 10 mg oral 1-07 tab, PO, l tablet 16:09: BID, 0 [place] 00 Refill(s) lisinopril 2016-0 Yes 10 mg = 1 [place] 10 mg oral 1-07 tab, PO, l tablet 16:09: BID, 0 [place] 00 Refill(s) lisinopril 2016-0 Yes 10 [...] tab, PO, l tablet 16:09: BID, 0 [place] 00 Refill(s) lisinopril 2016-0 Yes 10 mg = 1 [place] 10 mg oral 1-07 tab, PO, l tablet 16:09: BID, 0 [place] 00 Refill(s) lisinopril 2016-0 Yes 10 mg = 1 [place] 10 mg oral 1-07 tab, PO, l tablet 16:09: BID, 0 [place] 00 Refill(s) lisinopril 2015-0 Yes 10 mg = 1 [place] 10 mg oral 1-07 tab, PO, l tablet 16:09: BID, 0 [place] 00 Refill(s) lisinopril 2015-0 Yes 10 [...] tab, PO, l tablet 16:09: BID, 0 [place] 00 Refill(s) lisinopril 2016-0 Yes 10 mg = 1 [place] 10 mg oral 1-07 tab, PO, l tablet 16:09: BID, 0 [place] 00 Refill(s) lisinopril 2016-0 Yes 10 mg = 1 [place] 10 mg oral 1-07 tab, PO, l tablet 16:09: BID, 0 [place] 00 Refill(s) lisinopril 2016-0 Yes 10 mg = 1 [place] 10 mg oral 1-07 tab, PO, l tablet 16:09: BID, 0 [place] 00 Refill(s) lisinopril 2016-0 Yes 10 mg = 1 [place] 10 mg oral 1-07 tab, PO, l tablet 16:09: BID, 0 [place] 00 Refill(s) lisinopril 2016-0 Yes 10 mg = 1 [place] 10 mg oral 1-07 tab, PO, l tablet 16:09: BID, 0 [place] 00 Refill(s) lisinopril 2016-0 Yes 10 mg = 1 [place] 10 mg oral 1-07 tab, PO, l tablet 16:09: BID, 0 [place] 00 Refill(s) lisinopril 2016-0 Yes 10 mg = 1 [place] 10 mg oral 1-07 tab, PO, l tablet 16:09: BID, 0 [place] 00 Refill(s) lisinopril 2016-0 Yes 10 mg = 1 [place] 10 mg oral 1-07 tab, PO, l tablet 16:09: BID, 0 [place] 00 Refill(s) lisinopril 2016-0 Yes 10 mg = 1 [place] 10 mg oral 1-07 tab, PO, l tablet 16:09: BID, 0 [place] 00 Refill(s) lisinopril 2016-0 Yes 10 [...] tab, PO, l tablet 16:09: BID, 0 [place] 00 Refill(s) lisinopril 2016-0 Yes 10 mg = 1 [place] 10 mg oral 1-07 tab, PO, l tablet 16:09: BID, 0 [place] 00 Refill(s) lisinopril 2016-0 Yes 10 mg = 1 [place] 10 mg oral 1-07 tab, PO, l tablet 16:09: BID, 0 [place] 00 Refill(s) lisinopril 2016-0 Yes 10 mg = 1 [place] 10 mg oral 1-07 tab, PO, l tablet 16:09: BID, 0 [place] 00 Refill(s) lisinopril 2016-0 Yes 10 mg = 1 [place] 10 mg oral 1-07 tab, PO, l tablet 16:09: BID, 0 [place] 00 Refill(s) lisinopril 2016-0 Yes 10 mg = 1 [place] 10 mg oral 1-07 tab, PO, l tablet 16:09: BID, 0 [place] 00 Refill(s) lisinopril 2016-0 Yes 10 [...] tab, PO, l tablet 16:09: BID, 0 [place] 00 Refill(s) lisinopril 2016-0 Yes 10 mg = 1 [place] 10 mg oral 1-07 tab, PO, l tablet 16:09: BID, 0 [place] 00 Refill(s) lisinopril 2016-0 Yes 10 mg = 1 [place] 10 mg oral 1-07 tab, PO, l tablet 16:09: BID, 0 [place] 00 Refill(s) lisinopril 2016-0 Yes 10 mg = 1 [place] 10 mg oral 1-07 tab, PO, l tablet 16:09: BID, 0 [place] 00 Refill(s) lisinopril 2016-0 Yes 10 [...] tab, PO, l tablet 16:09: BID, 0 [place] 00 Refill(s) lisinopril 2016-0 Yes 10 mg = 1 [place] 10 mg oral 1-07 tab, PO, l tablet 16:09: BID, 0 [place] 00 Refill(s) lisinopril 2016-0 Yes 10 mg = 1 [place] 10 mg oral 1-07 tab, PO, l tablet 16:09: BID, 0 [place] 00 Refill(s) lisinopril 2016-0 Yes 10 [...] tab, PO, l tablet 16:09: BID, 0 [place] 00 Refill(s) lisinopril 2016-0 Yes 10 mg = 1 [place] 10 mg oral 1-07 tab, PO, l tablet 16:09: BID, 0 [place] 00 Refill(s) lisinopril 2016-0 Yes 10 mg = 1 [place] 10 mg oral 1-07 tab, PO, l tablet 16:09: BID, 0 [place] 00 Refill(s) lisinopril 2016-0 Yes 10 mg = 1 [place] 10 mg oral 1-07 tab, PO, l tablet 16:09: BID, 0 [place] 00 Refill(s) lisinopril 2016-0 Yes 10 mg = 1 [place] 10 mg oral -07 tab, PO, l tablet 16:09: BID, 0 [place] 00 Refill(s) lisinopril 2016-0 Yes 10 mg = 1 [place] 10 mg oral -07 tab, PO, l tablet 16:09: BID, 0 [place] 00 Refill(s) lisinopril 2016-0 Yes 10 mg = 1 [place] 10 mg oral -07 tab, PO, l tablet 16:09: BID, 0 [place] 00 Refill(s) lisinopril 2016-0 Yes 10 mg = 1 [place] 10 mg oral -07 tab, PO, l tablet 16:09: BID, 0 [place] 00 Refill(s) lisinopril 2016-0 Yes 10 mg = 1 [place] 10 mg oral - tab, PO, l tablet 16:09: BID, 0 [place] 00 Refill(s) lisinopril 2016-0 Yes 10 mg = 1 [place] 10 mg oral - tab, PO, l tablet 16:09: BID, 0 [place] 00 Refill(s) lisinopril 0 Yes 10 [...] tab, PO, l Tablet 16:08: Daily, 0 [place] [Norvasc] 00 Refill(s) Hydrochloro 2016-0 Yes 25 mg, PO, Memoria thiazide 1-07 Daily, 0 l 16:08: Refill(s) [place] 00 Amlodipine 2015-0 Yes 10 mg = 1 [place] 10 MG Oral 1-07 tab, PO, l Tablet 16:08: Daily, 0 [place] [Norvasc] 00 Refill(s) Hydrochloro 2016-0 Yes 25 mg, PO, Memoria thiazide 11-07 Daily, 0 l 16:08: Refill(s) [place] 00 Amlodipine 2015-0 Yes 10 mg = 1 [place] 10 MG Oral 1-07 tab, PO, l Tablet 16:08: Daily, 0 [place] [Norvasc] 00 Refill(s) Hydrochloro 2016-0 Yes [...] tab, PO, l Tablet 16:08: Daily, 0 [place] [Norvasc] 00 Refill(s) Hydrochloro 2016-0 Yes 25 mg, PO, Memoria thiazide 11-07 Daily, 0 l 16:08: Refill(s) [place] 00 Amlodipine 2016-0 Yes 10 mg = 1 [place] 10 MG Oral -07 tab, PO, l Tablet 16:08: Daily, 0 [place] [Norvasc] 00 Refill(s) Hydrochloro 2016-0 Yes 25 mg, PO, Memoria thiazide 11-07 Daily, 0 l 16:08: Refill(s) [place] 00 Amlodipine 2016-0 Yes 10 mg = 1 [place] 10 MG Oral 1-07 tab, PO, l Tablet 16:08: Daily, 0 [place] [Norvasc] 00 Refill(s) Hydrochloro 2016-0 Yes [...] tab, PO, l Tablet 16:08: Daily, 0 [place] [Norvasc] 00 Refill(s) Hydrochloro 2016-0 Yes 25 mg, PO, Memoria thiazide 11-07 Daily, 0 l 16:08: Refill(s) [place] 00 Amlodipine 2016-0 Yes 10 mg = 1 [place] 10 MG Oral -07 tab, PO, l Tablet 16:08: Daily, 0 [place] [Norvasc] 00 Refill(s) Hydrochloro 2016-0 Yes [...] thiazide 1-07 Daily, 0 l 16:08: Refill(s) [place] 00 Amlodipine 2016-0 Yes 10 mg = 1 [place] 10 MG Oral - tab, PO, l Tablet 16:08: Daily, 0 [place] [Norvasc] 00 Refill(s) Hydrochloro 2016-0 Yes [...] tab, PO, l Tablet 16:08: Daily, 0 [place] [Norvasc] 00 Refill(s) Hydrochloro 2016-0 Yes [...] tab, PO, l Tablet 16:08: Daily, 0 [place] [Norvasc] 00 Refill(s) Hydrochloro 2016-0 Yes 25 mg, PO, Memoria thiazide -07 Daily, 0 l 16:08: Refill(s) Amlodipine 2016-0 Yes 10 mg = 1 [place] 10 MG Oral - tab, PO, l Tablet 16:08: Daily, 0 [place] [Norvasc] 00 Refill(s) Hydrochloro 2016-0 Yes 25 mg, PO, Memoria thiazide 1-07 Daily, 0 l 16:08: Refill(s) Amlodipine 2016-0 Yes 10 mg = 1 [place] 10 MG Oral 1-07 tab, PO, l Tablet 16:08: Daily, 0 [place] [Norvasc] 00 Refill(s) Hydrochloro 2016-0 Yes 25 mg, PO, Memoria thiazide 11-07 Daily, 0 l 16:08: Refill(s) [place] 00 Amlodipine 2016-0 Yes 10 mg = 1 [place] 10 MG Oral 1-07 tab, PO, l Tablet 16:08: Daily, 0 [place] [Norvasc] 00 Refill(s) Hydrochloro 2016-0 Yes 25 mg, PO, Memoria thiazide 11-07 Daily, 0 l 16:08: Refill(s) [place] 00 Amlodipine 2015-0 Yes 10 mg = 1 [place] 10 MG Oral 1-07 tab, PO, l Tablet 16:08: Daily, 0 [place] [Norvasc] 00 Refill(s) Hydrochloro 2016-0 Yes 25 mg, PO, Memoria thiazide 11-07 Daily, 0 l 16:08: Refill(s) [place] 00 Amlodipine 2016-0 Yes 10 mg = 1 [place] 10 MG Oral 1-07 tab, PO, l Tablet 16:08: Daily, 0 [place] [Norvasc] 00 Refill(s) Hydrochloro 2016-0 Yes 25 mg, PO, Memoria thiazide 11-07 Daily, 0 l 16:08: Refill(s) [place] 00 Amlodipine 2016-0 Yes 10 mg = 1 [place] 10 MG Oral 1-07 tab, PO, l Tablet 16:08: Daily, 0 [place] [Norvasc] 00 Refill(s) Hydrochloro 2016-0 Yes 25 mg, PO, Memoria thiazide 11-07 Daily, 0 l 16:08: Refill(s) [place] 00 Amlodipine 2016-0 Yes 10 mg = 1 [place] 10 MG Oral 1-07 tab, PO, l Tablet 16:08: Daily, 0 [place] [Norvasc] 00 Refill(s) Hydrochloro 2016-0 Yes 25 mg, PO, Memoria thiazide 11-07 Daily, 0 l 16:08: Refill(s) [place] 00 Amlodipine 2016-0 Yes 10 mg = 1 [place] 10 MG Oral 1-07 tab, PO, l Tablet 16:08: Daily, 0 [place] [Norvasc] 00 Refill(s) Hydrochloro 2016-0 Yes 25 mg, PO, Memoria thiazide -07 Daily, 0 l 16:08: Refill(s) [place] 00 Amlodipine 2016-0 Yes 10 mg = 1 [place] 10 MG Oral -07 tab, PO, l Tablet 16:08: Daily, 0 [place] [Norvasc] 00 Refill(s) Hydrochloro 2016-0 Yes 25 mg, PO, Memoria thiazide 11-07 Daily, 0 l 16:08: Refill(s) [place] 00 Amlodipine 2016-0 Yes 10 mg = 1 [place] 10 MG Oral -07 tab, PO, l Tablet 16:08: Daily, 0 [place] [Norvasc] 00 Refill(s) Hydrochloro 2016-0 Yes 25 mg, PO, Memoria thiazide 11-07 Daily, 0 l 16:08: Refill(s) [place] 00 Amlodipine 2016-0 Yes 10 mg = 1 Me [place] 10 MG Oral - tab, PO, l Tablet 16:08: Daily, 0 [place] [Norvasc] 00 Refill(s) Hydrochloro 2016-0 Yes 25 mg, PO, Memoria thiazide 11-07 Daily, 0 l 16:08: Refill(s) [place] 00 Amlodipine 2016-0 Yes 10 mg = 1 [place] 10 MG Oral -07 tab, PO, l Tablet 16:08: Daily, 0 [place] [Norvasc] 00 Refill(s) Hydrochloro 2016-0 Yes 25 mg, PO, Memoria thiazide 11-07 Daily, 0 l 16:08: Refill(s) [place] 00 Amlodipine 2016-0 Yes 10 mg [...] tab, PO, l Tablet 16:08: Daily, 0 [place] [Norvasc] 00 Refill(s) Hydrochloro 2016-0 Yes 25 mg, PO, Memoria thiazide 11-07 Daily, 0 l 16:08: Refill(s) Amlodipine 2016-0 Yes 10 mg = 1 [place] 10 MG Oral 1-07 tab, PO, l Tablet 16:08: Daily, 0 [place] [Norvasc] 00 Refill(s) Hydrochloro 2016-0 Yes 25 mg, PO, Memoria thiazide 11-07 Daily, 0 l 16:08: Refill(s) Amlodipine 2016-0 Yes 10 mg = 1 [place] 10 MG Oral - tab, PO, l Tablet 16:08: Daily, 0 [place] [Norvasc] 00 Refill(s) Hydrochloro 2016-0 Yes [...] tab, PO, l Tablet 16:08: Daily, 0 [place] [Norvasc] 00 Refill(s) Amlodipine 2016-0 Yes 10 mg = 1 [place] 10 MG Oral -07 tab, PO, l Tablet 16:08: Daily, 0 [place] [Norvasc] 00 Refill(s) Hydrochloro 2016-0 Yes 25 mg, PO, Memoria thiazide 07 Daily, 0 l 16:08: Refill(s) Hydrochloro 2016-0 Yes 25 mg, PO, Memoria thiazide 1-07 Daily, 0 l 16:08: Refill(s) Amlodipine 2016-0 Yes 10 mg = 1 [place] 10 MG Oral 1-07 tab, PO, l Tablet 16:08: Daily, 0 [place] [Norvasc] 00 Refill(s) Hydrochloro 2016-0 Yes 25 mg, PO, Memoria thiazide 11-07 Daily, 0 l 16:08: Refill(s) [place] 00 Amlodipine 2016-0 Yes 10 mg = 1 [place] 10 MG Oral 1-07 tab, PO, l Tablet 16:08: Daily, 0 [place] [Norvasc] 00 Refill(s) Hydrochloro 2016-0 Yes 25 mg, PO, Memoria thiazide 11-07 Daily, 0 l 16:08: Refill(s) [place] 00 Amlodipine 2016-0 Yes 10 mg = 1 [place] 10 MG Oral 1-07 tab, PO, l Tablet 16:08: Daily, 0 [place] [Norvasc] 00 Refill(s) Hydrochloro 2016-0 Yes [...] tab, PO, l Tablet 16:08: Daily, 0 [place] [Norvasc] 00 Refill(s) Hydrochloro 2016-0 Yes 25 mg, PO, Memoria thiazide 11-07 Daily, 0 l 16:08: Refill(s) [place] 00 Amlodipine 2016-0 Yes 10 mg = 1 [place] 10 MG Oral 1-07 tab, PO, l Tablet 16:08: Daily, 0 [place] [Norvasc] 00 Refill(s) Hydrochloro 2016-0 Yes 25 mg, PO, Memoria thiazide 11-07 Daily, 0 l 16:08: Refill(s) [place] 00 Amlodipine 2016-0 Yes 10 mg = 1 [place] 10 MG Oral -07 tab, PO, l Tablet 16:08: Daily, 0 [place] [Norvasc] 00 Refill(s) Hydrochloro 2016-0 Yes 25 mg, PO, Memoria thiazide 11-07 Daily, 0 l 16:08: Refill(s) [place] 00 Amlodipine 2016-0 Yes 10 mg = 1 [place] 10 MG Oral -07 tab, PO, l Tablet 16:08: Daily, 0 [place] [Norvasc] 00 Refill(s) Hydrochloro 2016-0 Yes 25 mg, PO, Memoria thiazide 11-07 Daily, 0 l 16:08: Refill(s) [place] 00 Amlodipine 2016-0 Yes 10 mg = 1 [place] 10 MG Oral - tab, PO, l Tablet 16:08: Daily, 0 [place] [Norvasc] 00 Refill(s) Amlodipine 2015-0 Yes 10 mg = 1 [place] 10 MG Oral -07 tab, PO, l Tablet 16:08: Daily, 0 [place] [Norvasc] 00 Refill(s) Hydrochloro 2016-0 Yes 25 mg, PO, Memoria thiazide 11-07 Daily, 0 l 16:08: Refill(s) [place] 00 Hydrochloro 2016-0 Yes 25 mg, PO, [...] thiazide 1-07 Daily, 0 l 16:08: Refill(s) [place] 00 Amlodipine 2016-0 Yes 10 mg [...] tab, PO, l Tablet 16:08: Daily, 0 [place] [Norvasc] 00 Refill(s) Hydrochloro 2016-0 Yes 25 mg, PO, Memoria thiazide 11-07 Daily, 0 l 16:08: Refill(s) Amlodipine 2015-0 Yes 10 mg = 1 [place] 10 MG Oral - tab, PO, l Tablet 16:08: Daily, 0 [place] [Norvasc] 00 Refill(s) Hydrochloro 2016-0 Yes [...] thiazide 11-07 Daily, 0 l 16:08: Refill(s) [place] 00 Amlodipine 2015-0 Yes 10 mg = 1 [place] 10 MG Oral 1-07 tab, PO, l Tablet 16:08: Daily, 0 [place] [Norvasc] 00 Refill(s) Hydrochloro 2016-0 Yes [...] tab, PO, l Tablet 16:08: Daily, 0 [place] [Norvasc] 00 Refill(s) Hydrochloro 2016-0 Yes 25 mg, PO, Memoria thiazide 07 Daily, 0 l 16:08: Refill(s) [place] 00 Amlodipine 2016-0 Yes 10 mg = 1 [place] 10 MG Oral 1-07 tab, PO, l Tablet 16:08: Daily, 0 [place] [Norvasc] 00 Refill(s) Hydrochloro 2016-0 Yes 25 mg, PO, Memoria thiazide 1-07 Daily, 0 l 16:08: Refill(s) Amlodipine 2016-0 Yes 10 mg = 1 [place] 10 MG Oral 1-07 tab, PO, l Tablet 16:08: Daily, 0 [place] [Norvasc] 00 Refill(s) Hydrochloro 2016-0 Yes [...] tab, PO, l Tablet 16:08: Daily, 0 [place] [Norvasc] 00 Refill(s) Hydrochloro 2016-0 Yes 25 mg, PO, Memoria thiazide 07 Daily, 0 l 16:08: Refill(s) Amlodipine 2016-0 Yes 10 mg = 1 [place] 10 MG Oral -07 tab, PO, l Tablet 16:08: Daily, 0 [place] [Norvasc] 00 Refill(s) Hydrochloro 2016-0 Yes [...] tab, PO, l Tablet 16:08: Daily, 0 [place] [Norvasc] 00 Refill(s) Hydrochloro 2016-0 Yes [...] tab, PO, l Tablet 16:08: Daily, 0 [place] [Norvasc] 00 Refill(s) Hydrochloro 2016-0 Yes 25 mg, PO, Memoria thiazide 11-07 Daily, 0 l 16:08: Refill(s) [place] 00 Amlodipine 2015-0 Yes 10 mg = 1 [place] 10 MG Oral -07 tab, PO, l Tablet 16:08: Daily, 0 [place] [Norvasc] 00 Refill(s) Hydrochloro 2016-0 Yes 25 mg, PO, Memoria thiazide 11-07 Daily, 0 l 16:08: Refill(s) [place] 00 Amlodipine 2016-0 Yes 10 mg = 1 [place] 10 MG Oral -07 tab, PO, l Tablet 16:08: Daily, 0 [place] [Norvasc] 00 Refill(s) Hydrochloro 2016-0 Yes 25 mg, PO, Memoria thiazide -07 Daily, 0 l 16:08: Refill(s) Amlodipine 2016-0 Yes 10 mg = 1 [place] 10 MG Oral -07 tab, PO, l Tablet 16:08: Daily, 0 [place] [Norvasc] 00 Refill(s) Hydrochloro 2016-0 Yes 25 mg, PO, Memoria thiazide 1-07 Daily, 0 l 16:08: Refill(s) Amlodipine 2016-0 Yes 10 mg = 1 [place] 10 MG Oral 1-07 tab, PO, l Tablet 16:08: Daily, 0 [place] [Norvasc] 00 Refill(s) Hydrochloro 2016-0 Yes 25 mg, PO, Memoria thiazide 11-07 Daily, 0 l 16:08: Refill(s) [place] 00 Amlodipine 2016-0 Yes 10 mg = 1 [place] 10 MG Oral 1-07 tab, PO, l Tablet 16:08: Daily, 0 [place] [Norvasc] 00 Refill(s) Hydrochloro 2016-0 Yes 25 mg, PO, Memoria thiazide 11-07 Daily, 0 l 16:08: Refill(s) [place] 00 Amlodipine 2015-0 Yes 10 mg = 1 [place] 10 MG Oral -07 tab, PO, l Tablet 16:08: Daily, 0 [place] [Norvasc] 00 Refill(s) Hydrochloro 2016-0 Yes 25 mg, PO, Memoria thiazide 11-07 Daily, 0 l 16:08: Refill(s) Amlodipine 2015-0 Yes 10 mg = 1 [place] 10 MG Oral -07 tab, PO, l Tablet 16:08: Daily, 0 [place] [Norvasc] 00 Refill(s) Hydrochloro 2016-0 Yes 25 mg, PO, Memoria thiazide 11-07 Daily, 0 l 16:08: Refill(s) [place] 00 Amlodipine 2016-0 Yes 10 mg = 1 [place] 10 MG Oral 1-07 tab, PO, l Tablet 16:08: Daily, 0 [place] [Norvasc] 00 Refill(s) Hydrochloro 2016-0 Yes 25 mg, PO, Memoria thiazide 11-07 Daily, 0 l 16:08: Refill(s) [place] 00 Amlodipine 2016-0 Yes 10 mg = 1 [place] 10 MG Oral 1-07 tab, PO, l Tablet 16:08: Daily, 0 [place] [Norvasc] 00 Refill(s) Hydrochloro 2016-0 Yes 25 mg, PO, Memoria thiazide 11-07 Daily, 0 l 16:08: Refill(s) [place] 00 Amlodipine 2016-0 Yes 10 mg = 1 [place] 10 MG Oral 1-07 tab, PO, l Tablet 16:08: Daily, 0 [place] [Norvasc] 00 Refill(s) Hydrochloro 2016- Yes 25 mg, PO, Memoria thiazide 1-07 Daily, 0 l 16:08: Refill(s) [place] 00 metoprolol Yes 100 mg = [...] 100 mg = 1 M emoria tartrate 107 tab, PO, l 100 mg oral 16:07: [...] tablet 00 Refill(s) albuterol albuterol No albuterol [facility] [...] SHORTNESS OF BREATH allopurinol allopurinol No allopurino [facility] 300 mg 300 mg l 300 [...] NEEDED FOR ANXIETY amlodipine amlodipine No amlodipine [facility] 5 mg tablet 5 mg tablet [...] gauge mL 31 e x 15/64" x 1564" gauge x USE 1 USE 1 " USE SYRINGE SYRINGE 1 SYRINGE TWICE DAILY TWICE DAILY TWICE WITH MEALS. WITH MEALS. DAILY WITH MEALS. BD [place] 2nd BD [place] 2nd No BD [place] Gen Pen Gen Pen 2nd Gen Family Needle 32 Needle 32 Pen Needle Practic gauge x gauge x 32 gauge x e 32" USE 32" USE 532" USE TWICE DAILY TWICE DAILY TWICE DAILY [...] DAILY WITH MEALS dicyclomine dicyclomine No dicyclomin [facility] 10 mg 10 mg e 10 [...] SKIN EVERY EVENING hydralazine hydralazine No hydralazin [facility] 100 mg 100 mg e 100 [...] DAILY WITH MEALS ipratropium ipratropium No ipratropiu [facility] bromide bromide m bromide Fami ly [...] TABLET BY MOUTH DAILY nitroglycer nitroglycer nitrolisa [facility] in 0.4 mg in 0.4 mg rin 0.4 mg [facility] sublingual sublingual sublingual [facility] tablet tablet tablet e PLACE [address] 1 TABLET TABLET TABLET UNDER THE UNDER THE UNDER THE TONGUE TONGUE TONGUE EVERY 5 EVERY 5 EVERY 5 MINUTES MINUTES MINUTES NEEDED FOR NEEDED FOR NEEDED FOR CHEST PAIN. CHEST PAIN. CHEST PAIN. ondansetron ondansetron No ondansetro [facility] HCl 4 mg HCl 4 mg [...] BY MOUTH DAILY prednisone prednisone No prednisone [facility] 10 mg 10 mg 10 mg Family tablet TAKE tablet TAKE tablet [facility] 1 TABLET BY 1 TABLET BY TAKE 1 e MOUTH EVERY MOUTH EVERY TABLET BY DAY DAY MOUTH EVERY DAY spironolact spironolact No spironolac [facility] one 25 mg one 25 mg tone 25 mg Family tablet TAKE tablet TAKE tablet [facility] 1 TABLET BY 1 TABLET BY TAKE 1 e MOUTH EVERY MOUTH EVERY TABLET BY DAY DAY MOUTH EVERY DAY sucralfate sucralfate No sucralfate [facility] 1 gram 1 gram 1 gram [...] Immunizations Ordered Filled Immunization Date Status Comments [facility] e Immunization Name Name Influenza Virus 2022-09-21 Completed [facility], 00:00:00 [place] [facility] Preserv and ABX Branch Free 6 MO-64 YRS Influenza Virus 2022-09-21 Completed [facility], 00:00:00 [place] [facility] Preserv and ABX Branch Free 6 MO-64 YRS Influenza Virus 2022-09-21 Completed [facility], 00:00:00 [place] [facility] Preserv and ABX Branch Free 6 MO-64 YRS Influenza Virus 2022-09-21 Completed [facility], 00:00:00 [place] [facility] Preserv and ABX Branch Free 6 MO-64 YRS Influenza Virus 2022-09-21 Completed [facility] Vaccine [facility] IM, 00:00:00 [place] [facility] Preserv and ABX Branch Free 6 MO-64 YRS Influenza Virus 2022-09-21 Completed [facility], 00:00:00 [place] [facility] Preserv and ABX Branch Free 6 MO-64 YRS Influenza Virus 2022-09-21 Completed [facility] Vaccine [facility] IM, 00:00:00 [place] [facility] Preserv and ABX Branch Free 6 MO-64 YRS Influenza Virus 2022-09-21 Completed [facility] Vaccine [facility] IM, 00:00:00 [place] [facility] Preserv and ABX Branch Free 6 MO-64 YRS Influenza Virus 2022-09-21 Completed [facility] Vaccine [facility] IM, 00:00:00 [place] [facility] Preserv and ABX Branch Free 6 MO-64 YRS Influenza Virus 2022-09-21 Completed [facility] Vaccine [facility] IM, 00:00:00 [place] [facility] Preserv and ABX Branch Free [...] Unive rsity of MODERNA VACCINE 00:00:00 [place] [facility] ical Branch SARS-COV-2 COVID-19 2021-07-11 Completed Unive rsity of MODERNA VACCINE 00:00:00 [place] [facility] ical Branch SARS-COV-2 COVID-19 2021-07-11 Completed Unive rsity of MODERNA VACCINE 00:00:00 [facility] ical Branch SARS-COV-2 COVID-19 2021-07-11 Completed Unive rsity of MODERNA VACCINE 00:00:00 [place] [facility] ical Branch SARS-COV-2 COVID-19 2021-07-11 Completed Unive rsity of MODERNA VACCINE 00:00:00 [place] [facility] ical Branch SARS-COV-2 COVID-19 2021-07-11 Completed Unive rsity of MODERNA VACCINE 00:00:00 [facility] ical Branch SARS-COV-2 COVID-19 2021-07-11 Completed Unive rsity of MODERNA VACCINE 00:00:00 [facility] ical Branch SARS-COV-2 COVID-19 2021-07-11 Completed Unive rsity of MODERNA VACCINE 00:00:00 [place] [facility] ical Branch SARS-COV-2 COVID-19 2021-07-11 Completed Unive rsity of MODERNA 12+ YRS 00:00:00 [facility] ical VACCINE Branch SARS-COV-2 COVID-19 2021-07-11 Completed [...] Unive rsity of MODERNA VACCINE 00:00:00 [facility] ical Branch SARS-COV-2 COVID-19 2021-01-01 Completed [...] Unive rsity of MODERNA VACCINE 00:00:00 [facility] ical Branch SARS-COV-2 COVID-19 2020-12-03 [...] y of Vaccine Quad .5 mL 00:00:00 [facility] 6+ MO Branch Pneumococcal 2016-09-11 Completed University o f Polysaccharide, 00:00:00 [place] [facility] PPSV23 (PNEUMOVAX) Branch Influenza Virus 2016-09-11 Completed [facility] of Vaccine (3+ yrs) 00:00:00 [facility] Branch Pneumococcal 2016-09-11 Completed [facility] o f Polysaccharide, 00:00:00 [place] [facility] PPSV23 (PNEUMOVAX) Branch Influenza Virus 2016-09-11 Completed [facility] of Vaccine (3+ yrs) 00:00:00 [facility] Branch Pneumococcal 2016-09-11 Completed University o f Polysaccharide, 00:00:00 [place] [facility] PPSV23 (PNEUMOVAX) Branch Influenza Virus 2016-09-11 Completed [facility]it [facility] of Vaccine (3+ yrs) 00:00:00 [facility] Branch Pneumococcal 2016-09-11 Completed [facility] o f Polysaccharide, 00:00:00 [place] [facility] PPSV23 (PNEUMOVAX) Branch Influenza Virus 2016-09-11 Completed [facility] of Vaccine (3+ yrs) 00:00:00 [facility] Branch Pneumococcal 2016-09-11 Completed [facility] o f Polysaccharide, 00:00:00 [place] [facility] PPSV23 (PNEUMOVAX) Branch Influenza Virus 2016-09-11 Completed [facility] of Vaccine (3+ yrs) 00:00:00 [facility] Branch Pneumococcal 2016-09-11 Completed University o f Polysaccharide, 00:00:00 [place] [facility] PPSV23 (PNEUMOVAX) Branch Influenza Virus 2016-09-11 Completed [facility] of Vaccine (3+ yrs) 00:00:00 [facility] Branch Pneumococcal 2016-09-11 Completed [facility] o f Polysaccharide, 00:00:00 [place] [facility] PPSV23 (PNEUMOVAX) Branch Influenza Virus 2016-09-11 Completed [facility] of Vaccine (3+ yrs) 00:00:00 [facility] Pneumococcal 2016-09-11 Completed University o f Polysaccharide, 00:00:00 [place] [facility] PPSV23 (PNEUMOVAX) Branch Influenza Virus 2016-09-11 Completed [facility] of Vaccine (3+ yrs) 00:00:00 [facility] Pneumococcal 2016-09-11 Completed University o f Polysaccharide, 00:00:00 [place] [facility] PPSV23 (PNEUMOVAX) Branch Influenza Virus 2016-09-11 Completed [facility]it y of Vaccine (3+ yrs) 00:00:00 [facility] dical Branch Pneumococcal 2016-09-11 Completed [facility] o f Polysaccharide, 00:00:00 [place] [facility] PPSV23 (PNEUMOVAX) Branch Influenza Virus 2016-09-11 Completed [facility] Vaccine (3+ yrs) 00:00[facility]00 [facility] 2016-09-11 Completed [facility] o f Polysaccharide, 00:00:00 [place] [facility] PPSV23 (PNEUMOVAX) Branch Influenza Virus 2016-09-11 Completed [facility]it y of Vaccine (3+ yrs) 00:00:00 [facility] Pneumococcal 2016-09-11 Completed University o f Polysaccharide, 00:00:00 [place] [facility] PPSV23 (PNEUMOVAX) Branch Influenza Virus 2016-09-11 Completed [facility]it y of Vaccine (3+ yrs) 00:00:00 [facility] Pneumococcal 2016-09-11 Completed [facility] o f Polysaccharide, 00:00:00 [place] [facility] PPSV23 (PNEUMOVAX) Branch Influenza Virus 2016-09-11 Completed [facility]it y of Vaccine (3+ yrs) 00:00:00 [facility] Pneumococcal 2016-09-11 Completed University o f Polysaccharide, 00:00:00 [place] [facility] PPSV23 (PNEUMOVAX) Branch Influenza Virus 2016-09-11 Completed Universit y of Vaccine (3+ yrs) 00:00:00 [facility] Pneumococcal 2016-09-11 Completed University o f Polysaccharide, 00:00:00 [place] [facility] PPSV23 (PNEUMOVAX) Branch Influenza Virus 2016-09-11 Completed Universit y of Vaccine (3+ yrs) 00:00:00 [facility] Branch Pneumococcal 2016-09-11 Completed University o f Polysaccharide, 00:00:00 [place] [facility] PPSV23 (PNEUMOVAX) Branch Influenza Virus 2016-09-11 Completed Universit y of Vaccine (3+ yrs) 00:00:00 [facility] Pneumococcal 2016-09-11 Completed University o f Polysaccharide, 00:00:00 [place] [facility] PPSV23 (PNEUMOVAX) Branch Influenza Virus 2016-09-11 Completed Universit y of Vaccine (3+ yrs) 00:00:00 [facility] Pneumococcal 2016-09-11 Completed University o f Polysaccharide, 00:00:00 [place] [facility] PPSV23 (PNEUMOVAX) Branch Influenza Virus 2016-09-11 Completed Universit y of Vaccine (3+ yrs) 00:00:00 [facility] Pneumococcal 2016-09-11 Completed University o f Polysaccharide, 00:00:00 [place] [facility] PPSV23 (PNEUMOVAX) Branch Influenza Virus 2016-09-11 Completed Universit y of Vaccine (3+ yrs) 00:00:00 [facility] Pneumococcal 2016-09-11 Completed University o f Polysaccharide, 00:00:00 [place] [facility] PPSV23 (PNEUMOVAX) Branch Influenza Virus 2016-09-11 Completed Universit y of Vaccine (3+ yrs) 00:00:00 [facility] Pneumococcal 2016-09-11 Completed University o f Polysaccharide, 00:00:00 [place] [facility] PPSV23 (PNEUMOVAX) Branch Influenza Virus 2016-09-11 Completed Universit y of Vaccine (3+ yrs) 00:00:00 [facility] Pneumococcal 2016-09-11 Completed University o f Polysaccharide, 00:00:00 [place] [facility] PPSV23 (PNEUMOVAX) Branch Influenza Virus 2016-09-11 Completed Universit y of Vaccine (3+ yrs) 00:00:00 [facility] Pneumococcal 2016-09-11 Completed University o f Polysaccharide, 00:00:00 [place] [facility] PPSV23 (PNEUMOVAX) Branch Influenza Virus 2016-09-11 Completed Universit y of Vaccine (3+ yrs) 00:00:00 [facility] Pneumococcal 2016-09-11 Completed University o f Polysaccharide, 00:00:00 [place] [facility] PPSV23 (PNEUMOVAX) Branch Influenza Virus 2016-09-11 Completed Universit y of Vaccine (3+ yrs) 00:00:00 [facility] Pneumococcal 2016-09-11 Completed University o f Polysaccharide, 00:00:00 [place] [facility] PPSV23 (PNEUMOVAX) Branch Influenza Virus 2016-09-11 Completed Universit y of Vaccine (3+ yrs) 00:00:00 [facility] Pneumococcal 2016-09-11 Completed University o f Polysaccharide, 00:00:00 [place] [facility] PPSV23 (PNEUMOVAX) Branch Influenza Virus 2016-09-11 Completed Universit y of Vaccine (3+ yrs) 00:00:00 [facility] dical Branch Pneumococcal 2016-09-11 Completed University o f Polysaccharide, 00:00:00 [place] [facility] PPSV23 (PNEUMOVAX) Branch Influenza Virus 2016-09-11 Completed Universit y of Vaccine (3+ yrs) 00:00:00 [facility] dical Branch Pneumococcal 2015-04-11 Completed [...] Universit y of Vaccine (3+ yrs) 00:00:00 [facility] Influenza Virus 2013-09-29 Completed Universit y of Vaccine (3+ yrs) 00:00:00 [facility] Influenza Virus 2013-09-29 Completed Universit y of Vaccine (3+ yrs) 00:00:00 [facility] Influenza Virus 2013-09-29 Completed Universit y of Vaccine (3+ yrs) 00:00:00 [facility] Influenza Virus 2013-09-29 Completed Universit y of Vaccine (3+ yrs) 00:00:00 [facility] Flu Trivalent 2013-09-29 Completed University of 00:00:00 [facility] Influenza Virus 2013-09-29 Completed Universit y of Vaccine (3+ yrs) 00:00:00 [facility] Flu Trivalent 2013-09-29 Completed University of 00:00:00 [facility] Influenza Virus 2013-09-29 Completed Universit y of Vaccine (3+ yrs) 00:00:00 [facility] Flu Trivalent 2013-09-29 Completed University of 00:00:00 [facility] Influenza Virus 2013-09-29 Completed Universit y of Vaccine (3+ yrs) 00:00:00 [facility] Flu Trivalent 2013-09-29 Completed University of 00:00:00 [facility] Influenza Virus 2013-09-29 Completed Universit y of Vaccine (3+ yrs) 00:00:00 [facility] Flu Trivalent 2013-09-29 Completed University of 00:00:00 [facility] Influenza Virus 2013-09-29 Completed Universit y of Vaccine (3+ yrs) 00:00:00 [facility] Flu Trivalent 2013-09-29 Completed University of 00:00:00 [facility] Influenza Virus 2013-09-29 Completed Universit y of Vaccine (3+ yrs) 00:00:00 [facility] Flu Trivalent 2013-09-29 Completed University of 00:00:00 [facility] Influenza Virus 2013-09-29 Completed Universit y of Vaccine (3+ yrs) 00:00:00 [facility] Flu Trivalent 2013-09-29 Completed University of 00:00:00 [facility] Influenza Virus 2013-09-29 Completed Universit y of Vaccine (3+ yrs) 00:00:00 [facility] Flu Trivalent 2013-09-29 Completed University of 00:00:00 [facility] Influenza Virus 2013-09-29 Completed Universit y of Vaccine (3+ yrs) 00:00:00 [facility] Flu Trivalent 2013-09-29 Completed University of 00:00:00 [facility] Influenza Virus 2013-09-29 Completed Universit y of Vaccine (3+ yrs) 00:00:00 [facility] Flu Trivalent 2013-09-29 Completed University of 00:00:00 [facility] Influenza Virus 2013-09-29 Completed Universit y of Vaccine (3+ yrs) 00:00:00 [facility] Flu Trivalent 2013-09-29 Completed University of 00:00:00 [facility] Influenza Virus 2013-09-29 Completed Universit y of Vaccine (3+ yrs) 00:00:00 [facility] Flu Trivalent 2013-09-29 Completed University of 00:00:00 [facility] Influenza Virus 2013-09-29 Completed Universit y of Vaccine (3+ yrs) 00:00:00 [facility] Flu Trivalent 2013-09-29 Completed University of 00:00:00 [facility] Influenza Virus 2013-09-29 Completed Universit y of Vaccine (3+ yrs) 00:00:00 [facility] Flu Trivalent 2013-09-29 Completed University of 00:00:00 [facility] Influenza Virus 2013-09-29 Completed Universit y of Vaccine (3+ yrs) 00:00:00 [facility] Flu Trivalent 2013-09-29 Completed University of 00:00:00 [facility] Influenza Virus 2013-09-29 Completed Universit y of Vaccine (3+ yrs) 00:00:00 [facility] Flu Trivalent 2013-09-29 Completed University of 00:00:00 [facility] Influenza Virus 2013-09-29 Completed Universit y of Vaccine (3+ yrs) 00:00:00 [facility] Flu Trivalent 2013-09-29 Completed University of 00:00:00 [facility] Influenza Virus 2013-09-29 Completed Universit y of Vaccine (3+ yrs) 00:00:00 [facility] Flu Trivalent 2013-09-29 Completed University of 00:00:00 [facility] Influenza Virus 2013-09-29 Completed Universit y of Vaccine (3+ yrs) 00:00:00 [facility] Flu Trivalent 2013-09-29 Completed University of 00:00:00 [facility] Influenza Virus 2013-09-29 Completed Universit y of Vaccine (3+ yrs) 00:00:00 [facility] Flu Trivalent 2013-09-29 Completed University of 00:00:00 [facility] Influenza Virus 2013-09-29 Completed Universit y of Vaccine (3+ yrs) 00:00:00 [facility] Flu Trivalent 2013-09-29 Completed University of 00:00:00 [facility] Influenza Virus 2013-09-29 Completed Universit y of Vaccine (3+ yrs) 00:00:00 [facility] Flu Trivalent 2013-09-29 Completed University of 00:00:00 [facility] Influenza Virus 2012-11-25 Completed Universit y of Vaccine (3+ yrs) 00:00:00 [facility] Influenza Virus 2012-11-25 Completed Universit y of Vaccine (3+ yrs) 00:00:00 [facility] Influenza Virus 2012-11-25 Completed Universit y of Vaccine (3+ yrs) 00:00:00 [facility] Influenza Virus 2012-11-25 Completed Universit y of Vaccine (3+ yrs) 00:00:00 [facility] Influenza Virus 2012-11-25 Completed Universit y of Vaccine (3+ yrs) 00:00:00 [facility] Flu Trivalent 2012-11-25 Completed University of 00:00:00 [facility] Influenza Virus 2012-11-25 Completed Universit y of Vaccine (3+ yrs) 00:00:00 [facility] Flu Trivalent 2012-11-25 Completed University of 00:00:00 [facility] Influenza Virus 2012-11-25 Completed Universit y of Vaccine (3+ yrs) 00:00:00 [facility] Flu Trivalent 2012-11-25 Completed University of 00:00:00 [facility] Influenza Virus 2012-11-25 Completed Universit y of Vaccine (3+ yrs) 00:00:00 [facility] Flu Trivalent 2012-11-25 Completed University of 00:00:00 [facility] Influenza Virus 2012-11-25 Completed Universit y of Vaccine (3+ yrs) 00:00:00 [facility] Flu Trivalent 2012-11-25 Completed University of 00:00:00 [facility] Influenza Virus 2012-11-25 Completed Universit y of Vaccine (3+ yrs) 00:00:00 [facility] Flu Trivalent 2012-11-25 Completed University of 00:00:00 [facility] Influenza Virus 2012-11-25 Completed Universit y of Vaccine (3+ yrs) 00:00:00 [facility] Flu Trivalent 2012-11-25 Completed University of 00:00:00 [facility] Influenza Virus 2012-11-25 Completed Universit y of Vaccine (3+ yrs) 00:00:00 [facility] Flu Trivalent 2012-11-25 Completed University of 00:00:00 [facility] Influenza Virus 2012-11-25 Completed Universit y of Vaccine (3+ yrs) 00:00:00 [facility] Flu Trivalent 2012-11-25 Completed University of 00:00:00 [facility] Influenza Virus 2012-11-25 Completed Universit y of Vaccine (3+ yrs) 00:00:00 [facility] Flu Trivalent 2012-11-25 Completed University of 00:00:00 [facility] Influenza Virus 2012-11-25 Completed Universit y of Vaccine (3+ yrs) 00:00:00 [facility] Flu Trivalent 2012-11-25 Completed University of 00:00:00 [facility] Influenza Virus 2012-11-25 Completed Universit y of Vaccine (3+ yrs) 00:00:00 [facility] Flu Trivalent 2012-11-25 Completed University of 00:00:00 [facility] Influenza Virus 2012-11-25 Completed Universit y of Vaccine (3+ yrs) 00:00:00 [facility] Flu Trivalent 2012-11-25 Completed University of 00:00:00 [facility] Influenza Virus 2012-11-25 Completed Universit y of Vaccine (3+ yrs) 00:00:00 [facility] Flu Trivalent 2012-11-25 Completed University of 00:00:00 [facility] Influenza Virus 2012-11-25 Completed Universit y of Vaccine (3+ yrs) 00:00:00 [facility] Flu Trivalent 2012-11-25 Completed University of 00:00:00 [facility] Influenza Virus 2012-11-25 Completed Universit y of Vaccine (3+ yrs) 00:00:00 [facility] Flu Trivalent 2012-11-25 Completed University of 00:00:00 [facility] Influenza Virus 2012-11-25 Completed Universit y of Vaccine (3+ yrs) 00:00:00 [facility] Flu Trivalent 2012-11-25 Completed University of 00:00:00 [facility] Influenza Virus 2012-11-25 Completed Universit y of Vaccine (3+ yrs) 00:00:00 [facility] Flu Trivalent 2012-11-25 Completed University of 00:00:00 [facility] Influenza Virus 2012-11-25 Completed Universit y of Vaccine (3+ yrs) 00:00:00 [facility] Flu Trivalent 2012-11-25 Completed University of 00:00:00 [facility] Influenza Virus 2012-11-25 Completed Universit y of Vaccine (3+ yrs) 00:00:00 [facility] Flu Trivalent 2012-11-25 Completed University of 00:00:00 [facility] Influenza Virus 2012-11-25 Completed Universit y of Vaccine (3+ yrs) 00:00:00 [facility] Flu Trivalent 2012-11-25 Completed University of 00:00:00 [facility] Influenza Virus 2012-11-25 Completed Universit y of Vaccine (3+ yrs) 00:00:00 [facility] Flu Trivalent 2012-11-25 Completed University of 00:00:00 [facility] Influenza Virus 2012-11-25 Completed Universit y of Vaccine (3+ yrs) 00:00:00 [facility] Flu Trivalent 2012-11-25 Completed University of 00:00:00 [facility] Vital Signs Vital Name Observation Time Observation Value Comments Source Heart rate 2023-06-19 20:20:00 78 /min [facility] Respiratory rate 2023-06-19 20:20:00 18 /min [facility] Oxygen saturation in 2023-06-19 20:20:00 99 /min [facility] Arterial blood by [facility] Pulse oximetry Branch Systolic blood 2023-06-19 16:22:00 111 mm[Hg] Univer sity of pressure [facility] Diastolic blood 2023-06-19 16:22:00 67 mm[Hg] Unive rsity of pressure [facility] Body temperature 2023-06-19 16:22:00 36.78 [facility] 2023-06-17 22:51:00 160 cm [facility] Body weight 2023-06-17 22:51:00 142.429 kg [facility] BMI 2023-06-17 22:51:00 55.62 kg/m2 [facility] Systolic blood 2023-05-27 05:00:00 141 mm[Hg] Univer sity of pressure [facility] Diastolic blood 2023-05-27 05:00:00 85 mm[Hg] Unive rsity of pressure [facility] Respiratory rate 2023-05-27 05:00:00 17 /min [facility] ers[facility] Oxygen saturation in 2023-05-27 05:00:00 98 /min University of Arterial blood by [facility] Pulse oximetry Branch Heart rate 2023-05-27 04:01:00 85 /min [facility] Body temperature 2023-05-27 02:51:00 36.06 Pat [facility] ers[facility] Body height 2023-05-27 02:01:00 160 cm [facility] Body weight 2023-05-27 02:01:00 145.151 kg [facility] BMI 2023-05-27 02:01:00 56.69 kg/m2 [facility] Systolic blood 2023-04-08 14:02:00 119 mm[Hg] Univer sity of pressure [facility] Diastolic blood 2023-04-08 14:02:00 75 mm[Hg] Unive rsity of pressure [facility] Heart rate 2023-04-08 14:02:00 73 /min [facility] Respiratory rate 2023-04-08 14:02:00 18 /min [facility] ers[facility] Body height 2023-04-08 14:02:00 160 cm [facility] Body weight 2023-04-08 14:02:00 142.792 kg [facility] BMI 2023-04-08 14:02:00 55.76 kg/m2 [facility] Oxygen saturation in 2023-04-08 14:02:00 95 /min University of Arterial blood by [employer] [facility]ari Pulse oximetry Branch Systolic blood 2022-10-21 15:09:00 141 mm[Hg] Univer sity of pressure [facility] Diastolic blood 2022-10-21 15:09:00 81 mm[Hg] Unive rsity of pressure [facility] Heart rate 2022-10-21 15:08:00 84 /min [facility] Body height 2022-10-21 15:08:00 160 cm [facility] Body weight 2022-10-21 15:08:00 151.275 kg [facility] BMI 2022-10-21 15:08:00 59.08 kg/m2 [facility] Oxygen saturation in 2022-10-21 15:08:00 95 /min University of Arterial blood by [facility] Pulse oximetry Branch Systolic blood 2022-09-21 15:34:00 151 mm[Hg] Univer sity of pressure [facility] Diastolic blood 2022-09-21 15:34:00 74 mm[Hg] Unive rsity of pressure [facility] Heart rate 2022-09-21 15:33:00 86 /min [facility] Body height 2022-09-21 15:33:00 160 cm [facility] Body weight 2022-09-21 15:33:00 149.778 kg [facility] BMI 2022-09-21 15:33:00 58.49 kg/m2 [facility] Oxygen saturation in 2022-09-21 15:33:00 92 /min University of Arterial blood by [facility] Pulse oximetry Branch Systolic blood 2022-08-25 14:59:00 121 mm[Hg] Univer sity of pressure [facility] Diastolic blood 2022-08-25 14:59:00 75 mm[Hg] Unive rsity of pressure [facility] Heart rate 2022-08-25 14:59:00 108 /min [facility] Body temperature 2022-08-25 14:59:00 36.67 Pat [facility] Body height 2022-08-25 14:59:00 160 cm [facility] Body weight 2022-08-25 14:59:00 146.512 kg [facility] BMI 2022-08-25 14:59:00 57.22 kg/m2 [facility] Oxygen saturation in 2022-08-25 14:59:00 96 /min University of Arterial blood by [facility] Pulse oximetry Branch Systolic blood 2022-03-18 14:25:00 120 mm[Hg] Univer sity of pressure [facility] Diastolic blood 2022-03-18 14:25:00 70 mm[Hg] Unive rsity of pressure [facility] Heart rate 2022-03-18 14:25:00 78 /min Universi ty [facility] Body height 2022-03-18 14:25:00 160 cm Universi ty [facility] Body weight 2022-03-18 14:25:00 150.367 kg Universi [facility] BMI 2022-03-18 14:25:00 58.72 kg/m2 Universi [facility] Oxygen saturation in 2022-03-18 14:25:00 95 /min University of Arterial blood by [facility] Pulse oximetry Branch HEIGHT 2022-01-09 09:38:00 160 cm WEIGHT 2022-01-09 09:38:00 151.501 kg HEIGHT 2022-01-08 12:04:00 160 cm WEIGHT 2022-01-08 12:04:00 149.687 kg HEIGHT 2022-01-09 09:38:00 160 cm WEIGHT 2022-01-09 09:38:00 151.501 kg HEIGHT 2022-01-08 12:04:00 160 cm WEIGHT 2022-01-08 12:04:00 149.687 kg BP Diastolic 2021-08-21 00:00:00 89 mm[Hg] [facility] Height 2021-08-21 00:00:00 63 [in_i] [facility] BMI (Body Mass 2021-08-21 00:00:00 58.1 kg/m2 [facility] BP Systolic 2021-08-21 00:00:00 131 mm[Hg] [facility] Body Weight 2021-08-21 00:00:00 328 [lb_av] [facility] Practice Systolic blood 2023-06-17 18:13:00 113 mm[Hg] [facility] sithenri [facility] Diastolic blood 2023-06-17 18:13:00 75 mm[Hg] [facility]ive rsity of [facility] Heart rate 2023-06-17 18:13:00 71 /min [facility] Respiratory rate 2023-06-17 18:13:00 16 /min Univ ersity [facility] Oxygen saturation in 2023-06-17 18:13:00 95 /min University of Arterial blood by [facility] Body weight 2023-04-22 20:39:00 145.3 kg Universi [...] rate 2023-04-22 20:38:13 91 /min [facility] Respiratory rate 2023-04-22 20:38:13 20 /min [facility] Oxygen saturation in 2023-04-22 20:38:13 94 /min University of Arterial blood by [facility] P[facility] Body temperature 2023-04-22 20:38:13 36.89 Pat [facility] Body height 2023-04-22 17:37:00 155 [...] 2023-03-31 14:50:03 18 /min [facility] Body height 2023-03-31 14:50:03 155 cm [facility] Body weight 2023-03-31 14:50:03 141.4 kg [facility] BMI 2023-03-31 14:50:03 58.85 kg/m2 [facility] Oxygen saturation in 2023-03-31 14:50:03 94 /min University of Arterial blood by [facility] Systolic blood 2023-03-11 [...] Arterial blood by [facility] Pulse oximetry [facility] Center Body height 2023-02-06 13:19:00 155 cm [facility] Systolic blood 2022-01-09 13:53:00 157 mm[Hg] [facility] Diastolic blood 2022-01-09 13:53:00 89 mm[Hg] [facility] Heart rate 2022-01-09 13:53:00 80 /min [facility] Body temperature 2022-01-09 13:53:[address] [facility] Respiratory rate 2022-01-09 13:53:00 19 /min [facility] Oxygen saturation in 2022-01-09 13:53:00 93 /min [facility] Arterial blood by Medical Ce [facility]ter Pulse oximetry Body height 2022-01-09 09:38:00 160 cm [facility] Body weight 2022-01-09 09:38:00 151.501 kg [facility] BMI 2022-01-09 09:38:00 59.17 kg/m2 [facility] Systolic (mm Hg) 2018-04-04 19:53:00 [place] [facility] [place] Diastolic (mm Hg) 2018-04-04 19:53:00 Mem orial [place] Respitory Rate 2018-04-04 19:53:00 Mem[facility] [place] Systolic (mm Hg) 2018-04-04 19:41:00 [facility] [place] Diastolic (mm Hg) 2018-04-04 19:41:00 Mem orial [place] Respitory Rate 2018-04-04 19:41:00 [facility] [place] Systolic (mm Hg) 2018-04-04 18:06:00 [facility] [place] Diastolic (mm Hg) 2018-04-04 18:06:00 Mem [facility] [place] Respitory Rate 2018-04-04 18:06:00 Memori al [place] Weight 2018-04-04 18:04:00 [facility] [place] BMI Calculated 2018-04-04 18:04:00 Memori al [place] Height 2018-03-30 16:54:00 160.02 cm [facility] [place] Respitory Rate 2018-03-21 22:06:00 Memori al [place] Systolic (mm Hg) 2018-03-21 22:06:00 [facility] [place] Diastolic (mm Hg) 2018-03-21 22:06:00 Mem [facility]rial [place] Respitory Rate 2018-03-21 21:53:00 Memori al [place] Systolic (mm Hg) 2018-03-21 21:53:00 [facility] [place] Diastolic (mm Hg) 2018-03-21 21:53:00 Mem orial [place] Systolic (mm Hg) 2018-03-21 19:08:00 [place] [facility] [place] Diastolic (mm Hg) 2018-03-21 19:08:00 Mem [facility]rial [place] Respitory Rate 2018-03-21 19:08:00 Mem[facility] [place] Height 2018 18:32:00 160.02 cm [facility] Weight 2018 18:32:00 [facility] BMI Calculated 2018 18:32:00 Maynor Tsang Weight 2015-11-07 16:05:00 [facility] BMI Calculated 2015-11-07 16:05:00 Maynor Tsang Height 2015-11-07 16:05:00 160.02 cm [facility] Procedures Procedure Date / Time Performing Clinician Source Performed POCT GLUCOSE (AUTOMATED) 2023-06-19 Joselynri Pastora [facility] of 16:51:00 [facility] POCT GLUCOSE (AUTOMATED) 2023-06-19 Carolina Pastora Univers [facility]y of 12:28:00 [facility] PHOSPHORUS 2023-06-19 Carolina [facility] of 09:48:00 [facility] MAGNESIUM 2023-06-19 Carolina [facility] of 09:48:00 [facility] BASIC METABOLIC PANEL (NA, K, 2023-06-19 Pastora Figueroa Un iversity of CL, CO2, GLUCOSE, BUN, 09:48:00 [facility] ical CREATININE, [place]) Branch CBC WITH DIFF 2023-06-19 cyndi [facility] of 09:48:00 [facility] POCT GLUCOSE (AUTOMATED) 2023-06-19 Pastora Figueroa Univers ity of 02:10:00 [facility] MR BRAIN WO CONTRAST 2023-06-18 [facility] 22:46:26 [facility] POCT GLUCOSE (AUTOMATED) 2023-06-18 JoselynriRadhaPastora Univers ity of 21:49:00 [facility] POCT GLUCOSE (AUTOMATED) 2023-06-18 JoselynriPastora Univers ity of 16:52:00 [facility] TRANSTHORACIC ECHO (TTE) 2023-06-18 Pastora Figueroa [facility] ity of COMPLETE 15:44:29 [facility] POCT GLUCOSE (AUTOMATED) 2023-06-18 Pastora Figueroa [facility] of 12:21:00 [facility] PHOSPHORUS 2023-06-18 [place] [facility] of 09:23:00 [facility] MAGNESIUM 2023-06-18 cyndi [facility] of 09:23:00 [facility] BASIC METABOLIC PANEL (NA, K, 2023-06-18 [facility] Un iversity of CL, CO2, GLUCOSE, BUN, 09:23:00 [facility] ical CREATININE, CA) Branch CBC WITH DIFF 2023-06-18 [facility] of 09:23:00 [facility] POCT GLUCOSE (AUTOMATED) 2023-06-18 [facility] ity of 01:56:00 [facility] VITAMIN B12, LEVEL 2023-06-17 [facility] of 21:45:00 [facility] FOLATE 2023-06-17 [facility] of 21:45:00 [facility] C-REACTIVE PROTEIN 2023-06-17 [facility] of 21:45:00 [facility] THYROID STIMULATING HORMONE 2023-06-17 [facility] ersity of 21:45:00 [facility] VITAMIN D, 25-OH 2023-06-17 [facility] of 21:45:00 [facility] SYPHILIS IGG/IGM 2023-06-17 [facility] of 21:45:00 [facility] LIPID PANEL (81639)(TOTAL 2023-06-17 [facility] sity of CHOLESTEROL, TRIGLYCERIDES, 21:35:00 [facility] HDL) Branch GLYCOSYLATED HEMOGLOBIN (A1C) 2023-06-17 [facility] iversity of 21:35:00 [facility] EKG-12 LEAD 2023-06-17 Chio Baron [place] of 21:15:03 [facility] POCT GLUCOSE(AGE >30DAYS) 2023-06-17 Chio Baron [facility] versity of 20:46:[address] [facility] [address] ANGIOGRAM HEAD 2023-06-17 Chio Baron [place] of 20:36:[address] [facility] [address] HEAD WO CONTRAST 2023-06-17 Chio Baron [facility] y of 20:36:[address] [facility] [address] ANGIOGRAM NECK 2023-06-17 Chio Baron [place] of 20:36:10 [facility] POCT GLUCOSE (AUTOMATED) 2023-06-17 Maximus Chapa ity of 20:08:00 [facility] XR CHEST 1 VW 2023-06-17 Tod Chio [facility] of 19:56:00 [facility] TROPONIN I 2023-06-17 Tod [facility] of 19:40:00 [facility] BASIC METABOLIC PANEL (NA, K, 2023-06-17 [facility] CL, CO2, GLUCOSE, BUN, 19:40:00 [facility] ical CREATININE, CA) Branch CBC WITHOUT DIFF 2023-06-17 Tod [facility] o f 19:40:00 [facility] PROTHROMBIN TIME / INR 2023-06-17 Tod [facility] sity of 19:40:00 [facility] ACTIVATED PARTIAL THRMPLAS 2023-06-17 Chio Baron Un iversity of KOJO 19:40:00 [facility] N-TERMINAL PRO-BNP 2023-06-17 Tod [facility] of 19:40:00 [facility] COVID-19 (ID NOW RAPID 2023-06-17 Chio Baron [facility] sity of TESTING) 19:40:00 [facility] LAB ONLY COVID INTERPRETATION 2023-06-17 Tod [facility] of 19:40:00 [facility] CORTISOL 2023-06-17 [facility] of 17:29:53 [place] MD Liane olivier [facility] ADRENOCORTICOTROPIC HORMONE 2023-06-17 Denice Garcia [facility] ersity of 17:29:53 [place] MD Liane olivier [facility] CT CHEST PULMONARY ANGIOGRAM 2023-05-27 Destiney Abbasi Un iversity of 03:53:00 [facility] XR CHEST 1 VW 2023-05-27 Destiney Abbasi [place] of 02:54:00 [facility] PROTHROMBIN TIME / INR 2023-05-27 [facility] 02:42:00 [facility] TROPONIN I 2023-05-27 Destiney Abbasi [place] of 02:19:00 [facility] COMP. METABOLIC PANEL ([id number]) 2023-05-27 Destiney Abbasi U niversity of 02:19:00 [facility] CBC WITH DIFF 2023-05-[address] AnaalDestiney [facility] of 02:19:00 [facility] N-TERMINAL PRO-BNP 2023-05-27 On License [facility] o f 02:19:00 [facility] NOTICE OF PRIVACY PRACTICES 2023-05-27 Doctor Unassigned, U niversity of 01:53:15 [place] [facility] CONSENT/REFUSAL FOR DIAGNOSIS 2023-05-27 Doctor Unassigned, University of AND TREATMENT 01:51:44 [place] [facility] MRI ORBITS W WO CONTRAST 2023-04-22 [facility] versity of 19:58:00 [place] Liane olivier [facility] PROLACTIN 2023-04-22 [facility] o f 17:28:58 Bere olivier [facility] INSULIN LIKE GROWTH FACTOR 1 2023-04-22 [facility] of 17:28:58 [place] Liane olivier [facility] FREE THYROXINE 2023-04-22 Grant Winter [facility] o f 17:28:58 [place] Liane olivier [facility] TOTAL T3 2023-04-22 Grant [facility] o f 17:28:58 [place] Liane olivier [facility] THYROID STIMULATING HORMONE 2023-04-22 Grant Winter [facility] of 17:28:58 Bere olivier [facility] LUTEINIZING HORMONE 2023-04-22 [facility] of 17:28:58 Bere olivier [facility] FOLLICLE STIMULATING HORMONE 2023-04-22 [facility] of LEVEL 17:28:58 Bere olivier [facility] ESTRADIOL LEVEL 2023-04-22 Grant [facility] o f 17:28:58 Bere olivier [facility] ADRENOCORTICOTROPIC HORMONE 2023-04-22 Grant [facility] of 17:28:58 Bere olivier [facility] CORTISOL 2023-04-22 Grant [facility] o f 17:28:58 [place] MD Rob [facility] COMPLETE BLOOD COUNT W/ 2023-04-22 [facility] ersity of DIFFERENTIAL 17:28:58 Bere olivier [facility] ELECTROLYTE PANEL 2023-04-22 [facility] 17:28:58 [place] [facility] SERUM CREATININE 2023-04-22 [facility] of 17:28:58 [place] [facility] BLOOD UREA NITROGEN 2023-04-22 [facility] Universi ty of 17:28:58 [place] [facility] SERUM CREATININE 2023-04-22 [facility] 17:28:58 [place] [facility] .GLOMERULAR FILTRATION RATE 2023-04-22 [facility] of 17:28:58 [place] [facility] Results CBC 2023-04-22 [facility] f 17:28:58 [place] [facility] MANUAL DIFFERENTIAL 2023-04-22 [facility] 17:28:58 [place] [facility] INSURANCE CORRESPONDENCE 2023-03-12 Doctor Unassigned, Univ ersity of 05:01:00 [place] [facility] COMPLETE BLOOD COUNT W/ 2023-03-11 Lorena Hdez [facility] versity of DIFFERENTIAL 16:15:10 [place] [facility] COMPREHENSIVE METABOLIC PANEL 2023-03-11 Lorena Hdez [place] of 16:15:10 [place] [facility] MAGNESIUM LEVEL 2023-03-11 Lorena Hdez [place] of 16:15:10 [place] [facility] Results CBC 2023-03-11 Lorena Hdez [place] of 16:15:10 Bere Rob [facility] MANUAL DIFFERENTIAL 2023-03-11 Lorena Hdez [facility] ity of 16:15:10 [place] Rob [facility] GLUCOSE LEVEL 2023-03-11 Lorena Hdez [place] of 16:15:10 Bere olivier [facility] BLOOD UREA NITROGEN 2023-03-11 Lorena Hdez [facility] ity of 16:15:10 [place] [facility] ELECTROLYTE PANEL 2023-03-11 Lorena Hdez Universit y of 16:15:10 Bere Rob [facility] SERUM CREATININE 2023-03-11 Lorena Hdez [place] of 16:15:10 Bere GRIFFIN [facility] .GLOMERULAR FILTRATION RATE 2023-03-11 Lorena Hdez [place] of 16:15:10 [place] [facility] CALCIUM LEVEL TOTAL 2023-03-11 Lorena Hdez [facility] ity of 16:15:10 [place] [facility] ALBUMIN LEVEL 2023-03-11 Lorena Hdez [place] of 16:15:10 [place] [facility] ALKALINE PHOSPHATASE 2023-03-11 [facility] of 16:15:10 [place] [facility] ALANINE AMINOTRANSFERASE 2023-03-11 Lorena Hdez iversity of 16:15:10 [place] [facility] ASPARTATE AMINOTRANSFERASE 2023-03-11 Lorena Hdez [place] of 16:15:10 [place] [facility] TOTAL PROTEIN 2023-03-11 Lorena Hdez [place] of 16:15:10 [place] [facility] FRACTIONATED BILIRUBIN 2023-03-11 Lorena Hdez [facility] ersity of 16:15:10 [facility] COMPLETE BLOOD COUNT W/ 2023-03-03 Lorena Hdez [facility] versity of DIFFERENTIAL 18:03:40 [place] [facility] COMPREHENSIVE METABOLIC PANEL 2023-03-03 Lorena Hdez [place] of 18:03:40 [place] [facility] MAGNESIUM LEVEL 2023-03-03 Lorena Hdez [place] of 18:03:40 [place] [facility] Results CBC 2023-03-03 Lorena Hdez [place] of 18:03:40 [place] [facility] MANUAL DIFFERENTIAL 2023-03-03 Lorena Hdez [facility] ity of 18:03:40 [place] [facility] GLUCOSE LEVEL 2023-03-03 Lorena Hdez [place] of 18:03:40 [place] [facility] BLOOD UREA NITROGEN 2023-03-03 Lorena Hdez [facility] ity of 18:03:40 [place] [facility] ELECTROLYTE PANEL 2023-03-03 [facility] of 18:03:40 [place] [facility] SERUM CREATININE 2023-03-03 [facility] of 18:03:40 [place] [facility] .GLOMERULAR FILTRATION RATE 2023-03-03 [facility] of 18:03:40 [place] [facility] CALCIUM LEVEL TOTAL 2023-03-03 Simona [facility]fer [facility] ity of 18:03:40 [place] [facility] ALBUMIN LEVEL 2023-03-03 [facility]na[facility] of 18:03:40 [place] [facility] ALKALINE PHOSPHATASE 2023-03-03 Lemuel [facility] sity of 18:03:40 [place] [facility] ALANINE AMINOTRANSFERASE 2023-03-03 Simona Hdezfer Kayla Un iversity of 18:03:40 [place] [facility] ASPARTATE AMINOTRANSFERASE 2023-03-03 [facility] of 18:03:40 [place] [facility] TOTAL PROTEIN 2023-03-03 [facility] of 18:03:40 [place] [facility] FRACTIONATED BILIRUBIN 2023-03-03 [facility] ersity of 18:03:40 [place] [facility] POC GLUCOSE SCREEN 2023-02-16 [facility] of 17:02:00 Ash[place] [facility] ANTI-XA LEVEL 2023-02-16 [facility] of 16:13:00 Silvia [place] [facility] POC GLUCOSE SCREEN 2023-02-16 [facility] of 12:20:00 Ashleigh [place] [facility] MAGNESIUM LEVEL 2023-02-16 [facility] 11:15[facility]00 [facility] [place] [facility] PHOSPHORUS LEVEL 2023-02-16 Mark [place] of 11:15:00 [facility] [place] [facility] COMPLETE BLOOD COUNT W/ 2023-02-16 Noel Flores ty of DIFFERENTIAL 11:15:00 Christian [place] [facility] COMPREHENSIVE METABOLIC PANEL 2023-02-16 RomeroThao huynh Yogi. Un iversity of 11:15:00 [place] [facility] GLUCOSE LEVEL 2023-02-16 Thao Romero V. University of 11:15:00 [place] [facility] BLOOD UREA NITROGEN 2023-02-16 Thao Romero V. University o f 11:15:00 [place] [facility] ELECTROLYTE PANEL 2023-02-16 Romero Thao Yogi. [place] of 11:15:00 [place] [facility] SERUM CREATININE 2023-02-16 Romero Thao Yogi. [place] of 11:15:00 [facility] .GLOMERULAR FILTRATION RATE 2023-02-16 Romero Thao Yogi. Univ ersity of 11:15:00 [place] [facility] CALCIUM LEVEL TOTAL 2023-02-16 Thao Romero Yogi. [place] o f 11:15:00 [place] [facility] ALBUMIN LEVEL 2023-02-16 Romero, Thao Yogi. [place] of 11:15:00 [place] [facility] ALKALINE PHOSPHATASE 2023-02-16 Romero Thao Yogi. [place] of 11:15:00 [place] [facility] ALANINE AMINOTRANSFERASE 2023-02-16 Romero Thao Yogi. Univers ity of 11:15:00 [place] [facility] ASPARTATE AMINOTRANSFERASE 2023-02-16 Romero Thao Yogi. Unive rsity of 11:15:00 [place] [facility] TOTAL PROTEIN 2023-02-16 Romero, Thao Yogi. [place] of 11:15:00 [place] [facility] FRACTIONATED BILIRUBIN 2023-02-16 Romero Thoa Yogi. Universit y of 11:15:00 [place] [facility] Results CBC 2023-02-16 Mark [place] of 11:15:00 [facility] MANUAL DIFFERENTIAL 2023-02-16 Mark [place] o f 11:15:00 [facility] POC GLUCOSE SCREEN 2023-02-16 [place] f 02:26:00 [facility] POC GLUCOSE SCREEN 2023-02-15 [facility] o f 22:30:00 [facility] POC GLUCOSE SCREEN 2023-02-15 [facility] o f 17:15:00 [facility] POC GLUCOSE SCREEN 2023-02-15 [facility] o f 12:03:00 [facility] MAGNESIUM LEVEL 2023-02-15 [facility] 11:24:00 [facility] PHOSPHORUS LEVEL 2023-02-15 [facility] 11:24:00 [facility] COMPLETE BLOOD COUNT W/ 2023-02-15 Mark [facility] ty of DIFFERENTIAL 11:24:00 [facility] COMPREHENSIVE METABOLIC PANEL 2023-02-15 Thao Romero V. iversity of 11:24:00 [place] [facility] GLUCOSE LEVEL 2023-02-[address] [facility] 11:24:00 [place] [facility] BLOOD UREA NITROGEN 2023-02-[address] [facility] o f 11:24:00 [place] [facility] ELECTROLYTE PANEL 2023-02-15 Thao Romero V. [place] of 11:24:00 [place] [facility] SERUM CREATININE 2023-02-[address] [facility] 11:24:00 [place] [facility] .GLOMERULAR FILTRATION RATE 2023-02-15 Thao Romero V. Univ ersity of 11:24:00 [place] [facility] CALCIUM LEVEL TOTAL 2023-02-15 Thao Romero V. [place] o f 11:24:00 [place] [facility] ALBUMIN LEVEL 2023-02-15 Thao Romero V. [place] of 11:24:00 [place] [facility] ALKALINE PHOSPHATASE 2023-02-15 Thao Romero V. [place] of 11:24:00 [place] [facility] ALANINE AMINOTRANSFERASE 2023-02-15 Thao Romero V. [facility] ity of 11:24:00 [place] [facility] ASPARTATE AMINOTRANSFERASE 2023-02-15 Thao Romero V. Unive rsity of 11:24:00 [place] MD Liane olivier [facility] TOTAL PROTEIN 2023-02-15 Thao Romero V. [place] of 11:24:00 [place] [facility] FRACTIONATED BILIRUBIN 2023-02-15 Thao Romero V. Universit y of 11:24:00 [place] [facility] soy [facility] Results CBC 2023-02-15 Mark [place] of 11:24:00 [facility] MANUAL DIFFERENTIAL 2023-02-15 [facility] f 11:24:00 [facility] POC GLUCOSE SCREEN 2023-02-15 [facility] o f 02:05:00 [facility] POC GLUCOSE SCREEN 2023-02-14 [facility] o f 22:46:00 [facility] POC GLUCOSE SCREEN 2023-02-14 [facility] o f 16:34:00 [facility] POC GLUCOSE SCREEN 2023-02-14 [facility] o f 13:58:00 [facility] MAGNESIUM LEVEL 2023-02-14 [facility] of 11:24:00 [facility] PHOSPHORUS LEVEL 2023-02-14 [facility] of 11:24:00 [facility] COMPLETE BLOOD COUNT W/ 2023-02-14 [facility] DIFFERENTIAL 11:24:00 [facility] COMPREHENSIVE METABOLIC PANEL 2023-02-14 Thao Romero V. Un iversity of 11:24:00 [place] MD Liane olivier [facility] GLUCOSE LEVEL 2023-02-14 Thao Romero V. [place] of 11:24:00 [place] MD Liane olivier [facility] BLOOD UREA NITROGEN 2023-02-14 Thao Romero V. [place] o f 11:24:00 [place] Liane olivier [facility] ELECTROLYTE PANEL 2023-02-14 Thao Romero V. [place] of 11:24:00 [place] [facility] SERUM CREATININE 2023-02-14 Thao Romero V. [place] of 11:24:00 [place] [facility] .GLOMERULAR FILTRATION RATE 2023-02-14 Thao Romero V. [facility] ersity of 11:24:00 [place] [facility] CALCIUM LEVEL TOTAL 2023-02-14 Thao Romero V. [place] o f 11:24:00 [place] [facility] ALBUMIN LEVEL 2023-02-14 Thao Romero V. [place] of 11:24:00 [place] [facility] ALKALINE PHOSPHATASE 2023-02-14 Thao Romero . [place] of 11:24:00 [place] [facility] ALANINE AMINOTRANSFERASE 2023-02-14 Thao Romero V. Univers ity of 11:24:00 [place] [facility] ASPARTATE AMINOTRANSFERASE 2023-02-14 Thao Romero V. Unive rsity of 11:24:00 [place] [facility] TOTAL PROTEIN 2023-02-14 Thao Romero V. [place] of 11:24:00 [place] [facility] FRACTIONATED BILIRUBIN 2023-02-14 Thao Romero . Universit y of 11:24:00 [place] [facility] Results CBC 2023-02-14 Mark [place] of 11:24:00 [facility] MANUAL DIFFERENTIAL 2023-02-14 Mark [place] o f 11:24:00 [facility] POC GLUCOSE SCREEN 2023-02-14 [facility] o f 02:44:00 [facility] Center POC GLUCOSE SCREEN 2023-02-13 [facility] o f 23:32:00 [facility] Center POC GLUCOSE SCREEN 2023-02-13 [facility] o f 18:19:00 [facility] Center POC GLUCOSE SCREEN 2023-02-13 [facility] o f 12:37:00 [facility] MAGNESIUM LEVEL 2023-02-13 Mark [place] of 11:42:00 [facility] PHOSPHORUS LEVEL 2023-02-13 Mark [place] of 11:42:00 [facility] COMPLETE BLOOD COUNT W/ 2023-02-13 Neol Floresi ty of DIFFERENTIAL 11:42:00 [facility] COMPREHENSIVE METABOLIC PANEL 2023-02-13 Thao Romero V. Un iversity of 11:42:00 [place] [facility] GLUCOSE LEVEL 2023-02-13 Thao Romero V. University of 11:42:00 [place] [facility] BLOOD UREA NITROGEN 2023-02-13 Thao Romero V. [place] o f 11:42:00 [place] [facility] ELECTROLYTE PANEL 2023-02-13 Thao Romero V. [place] of 11:42:00 [place] [facility] SERUM CREATININE 2023-02-[address] [facility] 11:42:00 [facility] .GLOMERULAR FILTRATION RATE 2023-02-13 Thao Romero V. Univ ersity of 11:42:00 [place] [facility] CALCIUM LEVEL TOTAL 2023-02-13 Thao Romero V. [place] o f 11:42:00 [place] [facility] ALBUMIN LEVEL 2023-02-13 Thao Romero V. [place] of 11:42:00 [place] [facility] ALKALINE PHOSPHATASE 2023-02-13 Thao Romero V. [place] of 11:42:00 [place] [facility] ALANINE AMINOTRANSFERASE 2023-02-13 Thao Romero V. Univers ity of 11:42:00 [place] [facility] ASPARTATE AMINOTRANSFERASE 2023-02-13 Thao Romero V. Unive rsity of 11:42:00 [place] [facility] TOTAL PROTEIN 2023-02-13 Thao Romero V. [place] of 11:42:00 [place] [facility] FRACTIONATED BILIRUBIN 2023-02-13 Thao Romero V. Universit y of 11:42:00 [place] [facility] Results CBC 2023-02-13 Mark [place] of 11:42:00 [facility] MANUAL DIFFERENTIAL 2023-02-13 [facility] f 11:42:00 [facility] POC GLUCOSE SCREEN 2023-02-13 [facility] o f 03:26:00 [facility] POC GLUCOSE SCREEN 2023-02-13 [facility] o f 00:20:00 [facility] POC GLUCOSE SCREEN 2023-02-12 [facility] o f 20:06:00 [facility] POC GLUCOSE SCREEN 2023-02-12 [facility] o f 15:18:00 [facility] GENERAL LABORATORY ADD ON 2023-02-12 Kimberli Cortes sity of TEST 14:33:00 [place] [facility] POC GLUCOSE SCREEN 2023-02-12 [facility] o f 13:55:00 [facility] MAGNESIUM LEVEL 2023-02-12 [facility] 10:34:00 [facility] PHOSPHORUS LEVEL 2023-02-12 [facility] 10:34:00 [facility] COMPLETE BLOOD COUNT W/ 2023-02-12 Mark [facility] ty of DIFFERENTIAL 10:34:00 [facility] COMPREHENSIVE METABOLIC PANEL 2023-02-12 Thao Romero V. Un iversity of 10:34:00 [place] [facility] GLUCOSE LEVEL 2023-02-12 Thao Romero V. [place] of 10:34:00 [place] [facility] BLOOD UREA NITROGEN 2023-02-12 Thao Romero V. [place] o f 10:34:00 [place] [facility] ELECTROLYTE PANEL 2023-02-12 Thao Romero V. [place] of 10:34:00 [place] [facility] SERUM CREATININE 2023-02-12 Thao Romero V. [place] of 10:34:00 [facility] .GLOMERULAR FILTRATION RATE 2023-02-12 Thao Romero V. Univ ersity of 10:34:00 [place] [facility] CALCIUM LEVEL TOTAL 2023-02-12 Thao Romero V. [place] o f 10:34:00 [place] MD Liane olivier [facility] ALBUMIN LEVEL 2023-02-[address] [facility] 10:34:00 [place] [facility] ALKALINE PHOSPHATASE 2023-02-12 Thao Romero V. University of 10:34:00 [place] MD Liane olivier [facility] ALANINE AMINOTRANSFERASE 2023-02-12 Thao Romero V. Univers ity of 10:34:00 [place] [facility] ASPARTATE AMINOTRANSFERASE 2023-02-12 Thao Romero V. Unive rsity of 10:34:00 [place] [facility] TOTAL PROTEIN 2023-02-[address] [facility] 10:34:00 [place] [facility] olivier [facility] FRACTIONATED BILIRUBIN 2023-02-12 Thao Romero V. Universit y of 10:34:00 [place] [facility] Results CBC 2023-02-12 [facility] 10:34:00 [facility] [facility] Center MANUAL DIFFERENTIAL 2023-02-12 [facility] o f 10:34:00 [facility]ALCITONIN 2023-02-12 [facility] 10[facility]00 [facility] Center POC GLUCOSE SCREEN 2023-02-12 [facility] o f 03:16:00 Silvia [place] [facility] Center POC GLUCOSE SCREEN 2023-02-12 [facility] o f 00:01:00 Silvia [place] [facility] POC GLUCOSE SCREEN 2023-02-11 [facility] o f 18:59:00 Silvia [place] [facility] Center POC GLUCOSE SCREEN 2023-02-11 [facility] o f 13:46:00 [facility] MAGNESIUM LEVEL 2023-02-[address] [facility] 10:42:00 [facility] PHOSPHORUS LEVEL 2023-02-11 [facility] 10:42:00 [facility] COMPLETE BLOOD COUNT W/ 2023-02-11 Noel Flores ty of DIFFERENTIAL 10:42:00 [facility] COMPREHENSIVE METABOLIC PANEL 2023-02-11 Thao Romero V. Un iversity of 10:42:00 [place] [facility] GLUCOSE LEVEL 2023-02-11 Thao Romero V. University of 10:42:00 [place] [facility] BLOOD UREA NITROGEN 2023-02-11 Thao Romero V. University o f 10:42:00 [place] [facility] ELECTROLYTE PANEL 2023-02-11 Thao Romero V. [place] of 10:42:00 [place] [facility] SERUM CREATININE 2023-02-11 Thao Romero V. [place] of 10:42:00 [place] [facility] .GLOMERULAR FILTRATION RATE 2023-02-11 Thao Romero V. Univ ersity of 10:42:00 [place] [facility] CALCIUM LEVEL TOTAL 2023-02-11 Thao Romero V. University o f 10:42:00 [place] [facility] ALBUMIN LEVEL 2023-02-11 Thoa Romero V. [place] of 10:42:00 [place] [facility] ALKALINE PHOSPHATASE 2023-02-11 Thao Romero V. University of 10:42:00 [place] [facility] ALANINE AMINOTRANSFERASE 2023-02-11 Thao Romero V. Univers ity of 10:42:00 [place] [facility] ASPARTATE AMINOTRANSFERASE 2023-02-11 Thao Romero V. Unive rsity of 10:42:00 [place] [facility] TOTAL PROTEIN 2023-02-11 Thao Romero V. University of 10:42:00 [place] [facility] FRACTIONATED BILIRUBIN 2023-02-11 Thao Romero V. Universit y of 10:42:00 [place] [facility] Results CBC 2023-02-11 Mark [place] of 10:42:00 [facility] MANUAL DIFFERENTIAL 2023-02-11 Eun Flores o f 10:42:00 [facility] MAXILLOFACIAL AREA W 2023-02-11 [facility] ity of CONTRAST 09:15:00 [facility] POC GLUCOSE SCREEN 2023-02-11 [facility] o f 03:42:00 [facility] Center POC GLUCOSE SCREEN 2023-02-10 [facility] o f 22:17:00 [facility] POC GLUCOSE SCREEN 2023-02-10 [facility] f 17:27:00 [facility] Center POC GLUCOSE SCREEN 2023-02-10 [facility] f 13:52:00 [facility] MAGNESIUM LEVEL 2023-02-10 [facility] 10:43:00 [facility] PHOSPHORUS LEVEL 2023-02-10 [facility] 10:43:00 [facility] COMPLETE BLOOD COUNT W/ 2023-02-10 Mark [facility] ty of DIFFERENTIAL 10:43:00 [facility] COMPREHENSIVE METABOLIC PANEL 2023-02-10 Thao Romero V. Un iversity of 10:43:00 [place] [facility] GLUCOSE LEVEL 2023-02-[address] [facility] 10:43:00 [place] [facility] BLOOD UREA NITROGEN 2023-02-10 Thao Romero V. [place] o f 10:43:00 [place] [facility] ELECTROLYTE PANEL 2023-02-10 Thao Romero V. [place] of 10:43:00 [place] [facility] SERUM CREATININE 2023-02-10 Thao Romero V. [place] of 10:43:00 [place] [facility] .GLOMERULAR FILTRATION RATE 2023-02-10 Thao Romero V. Univ ersity of 10:43:00 [place] [facility] CALCIUM LEVEL TOTAL 2023-02-10 Thao Romero V. [place] o f 10:43:00 [place] [facility] ALBUMIN LEVEL 2023-02-10 Thao Romero V. [place] of 10:43:00 [place] [facility] ALKALINE PHOSPHATASE 2023-02-10 Thao Romero V. University of 10:43:00 [place] [facility] ALANINE AMINOTRANSFERASE 2023-02-10 Thao Romero V. Univers ity of 10:43:00 [place] [facility] ASPARTATE AMINOTRANSFERASE 2023-02-10 Thao Romero V. Unive rsity of 10:43:00 [place] [facility] TOTAL PROTEIN 2023-02-10 Thao Romero V. University of 10:43:00 [place] [facility] FRACTIONATED BILIRUBIN 2023-02-10 Thao Romero V. Universit y of 10:43:00 [place] [facility] Results CBC 2023-02-10 Mark [place] of 10:43:00 [facility] MANUAL DIFFERENTIAL 2023-02-10 [facility] f 10:43:00 [facility] POC GLUCOSE SCREEN 2023-02-10 [facility] o f 03:27:00 [facility] POC GLUCOSE SCREEN 2023-02-09 [facility] f 22:11:00 [facility] POC GLUCOSE SCREEN 2023-02-09 [facility] f 18:18:00 [facility] POC GLUCOSE SCREEN 2023-02-09 [facility] f 13:12:00 [facility] MAGNESIUM LEVEL 2023-02-09 Mark [place] of 10:37:00 [facility] PHOSPHORUS LEVEL 2023-02-09 [facility] 10:37:00 [facility] COMPLETE BLOOD COUNT W/ 2023-02-09 [facility]ENTIAL 10:37:00 [facility] COMPREHENSIVE METABOLIC PANEL 2023-02-09 Thao Romero V. Un iversity of 10:37:00 [place] [facility] CREATINE KINASE 2023-02-09 Shelby José [place] of 10:37:00 [place] [facility] GLUCOSE LEVEL 2023-02-09 Thao Romero V. [place] of 10:37:00 [place] [facility] BLOOD UREA NITROGEN 2023-02-09 Thao Romero V. [place] o f 10:37:00 [place] [facility] ELECTROLYTE PANEL 2023-02-09 Thao Romero V. [place] of 10:37:00 [place] [facility] SERUM CREATININE 2023-02-09 Thao Romero V. [place] of 10:37:00 [place] [facility] .GLOMERULAR FILTRATION RATE 2023-02-09 Thao Romero V. [facility] ersity of 10:37:00 [place] [facility] CALCIUM LEVEL TOTAL 2023-02-09 Thao Romero V. [place] o f 10:37:00 [place] [facility] ALBUMIN LEVEL 2023-02-09 Thao Romero V. [place] of 10:37:00 [place] [facility] ALKALINE PHOSPHATASE 2023-02-09 Thao Romero V. [place] of 10:37:00 [place] [facility] ALANINE AMINOTRANSFERASE 2023-02-09 Thao Romero V. Univers ity of 10:37:00 [place] [facility] ASPARTATE AMINOTRANSFERASE 2023-02-09 Thao Romero V. Unive rsity of 10:37:00 [place] [facility] TOTAL PROTEIN 2023-02-09 Thao Romero V. [place] of 10:37:00 [place] [facility] FRACTIONATED BILIRUBIN 2023-02-09 Thao Romero V. Universit y of 10:37:00 [place] [facility] Results CBC 2023-02-09 [facility] 10:37:00 [facility] MANUAL DIFFERENTIAL 2023-02-09 Mark [place] o f 10:37:00 [facility] POC GLUCOSE SCREEN 2023-02-09 Derrick Pérez Universi ty of 03:21:00 [place] [facility] POC GLUCOSE SCREEN 2023-02-08 Derrick Pérez Universi ty of 23:32:00 Bere Rob [facility] US ARM VENOUS DOPPLER 2023-02-08 Derrick Pérez Unive rsity of BILATERAL 23:28:54 [place] [facility] ECHOCARDIOGRAM 2D COMPLETE W 2023-02-08 Thao Romero V. Uni versity of CONTRAST 19:23:53 [place] [facility] POC GLUCOSE SCREEN 2023-02-08 Derrick Pérez Universi ty of 17:21:00 [place] [facility] POC GLUCOSE SCREEN 2023-02-08 SebastianDerrick Quintero Universi ty of 12:46:00 [place] [facility] MAGNESIUM LEVEL 2023-02-08 [facility] 11:14:00 [facility] PHOSPHORUS LEVEL 2023-02-08 [facility] 11:14:00 [facility] COMPLETE BLOOD COUNT W/ 2023-02-[facility] DIFFERENTIAL 11:14:00 [place] Bere GRIFFIN [facility] COMPREHENSIVE METABOLIC PANEL 2023-02-08 Thao Romero V. Un iversity of 11:14:00 Bere GRIFFIN [facility] GLUCOSE LEVEL 2023-02-08 Thao Romero V. [place] of 11:14:00 [place] [facility] BLOOD UREA NITROGEN 2023-02-08 Thao Romero V. [place] o f 11:14:00 Bere GRIFFIN [facility] ELECTROLYTE PANEL 2023-02-08 Thao Romero V. [place] of 11:14:00 Bere GRIFFIN [facility] SERUM CREATININE 2023-02-[address] [facility] 11:14:00 Bere GRIFFIN [facility] .GLOMERULAR FILTRATION RATE 2023-02-08 Thao Romero V. Univ ersity of 11:14:00 Bere GRIFFIN [facility] CALCIUM LEVEL TOTAL 2023-02-08 Thao Romero V. [place] o f 11:14:00 Bere GRIFFIN [facility] ALBUMIN LEVEL 2023-02-08 Thao Romero V. [place] of 11:14:00 [place] [facility] ALKALINE PHOSPHATASE 2023-02-[address] [facility] 11:14:00 [place] [facility] ALANINE AMINOTRANSFERASE 2023-02-08 Thao Romero V. Univers ity of 11:14:00 [place] [facility] ASPARTATE AMINOTRANSFERASE 2023-02-08 Thao Romero V. Unive rsity of 11:14:00 [place] [facility]Dr[facility] TOTAL PROTEIN 2023-02-08 Thao Romero V. [place] of 11:14:00 [place] [facility] olivier [facility] FRACTIONATED BILIRUBIN 2023-02-08 Thao Romero V. Universit y of 11:14:00 [place] [facility] Results CBC 2023-02-08 [facility] 11:14:00 [facility] MANUAL DIFFERENTIAL 2023-02-08 [facility] f 11:14:00 [facility] POC GLUCOSE SCREEN 2023-02-08 Cortes-Dellan, Derrick Universi ty of 02:47:00 [place] MD [facility] POC GLUCOSE SCREEN 2023-02-08 Cortes-Dellan, Derrick Universi ty of 00:12:00 [place] [facility] POC GLUCOSE SCREEN 2023-02-07 Cortes-Dellan, Derrick Universi ty of 22:43:00 [place] [facility] Center POC GLUCOSE SCREEN 2023-02-07 Cortes-Dellan, Derrick Universi ty of 18:16:00 [place] [facility]yDr[facility] POC GLUCOSE SCREEN 2023-02-07 Cortes-Dellan, Derrick Universi ty of 13:48:00 [place] MD Rob [facility] BLOODCULTURE 2023-02-07 [facility] of 11:52:00 [place] MD Rob [facility] HIV 1/2 ANTIGEN/ANTIBODY, 2023-02-07 Thao Romero V. [facility] sity of FOURTH GEN W/RFL 11:52:00 [place] Carreon [facility] HEPATITIS B SURFACE ANTIGEN, 2023-02-07 Thao Romero V. Uni versity of SERUM 11:52:00 [place] Rob [facility] HEPATITIS B CORE ANTIBODY 2023-02-07 Thao Romero V. Univer sity of 11:52:00 [place] MD [facility]reonDr[facility] HEPATITIS C VIRUS AB SCREEN 2023-02-07 Thao Romero V. Univ ersity of W/REFLEX HCV PCR 11:52:00 Bere Carreon [facility] FERRITIN LVL 2023-02-07 Thao Romero V. [place] of 11:52:00 [place] [facility] TRANSFERRIN 2023-02-07 Thao Romero V. [place] of 11:52:00 [place] [facility]issyDr[facility] IRON LEVEL 2023-02-07 Thao Romero V. [place] of 11:52:00 [place] [facility] MAGNESIUM LEVEL 2023-02-07 [facility] 11:52:00 [facility] PHOSPHORUS LEVEL 2023-02-07 [facility] 11:52:00 [facility] COMPLETE BLOOD COUNT W/ 2023-02-07 Mark [facility] ty of DIFFERENTIAL 11:52:00 [facility] COMPREHENSIVE METABOLIC PANEL 2023-02-07 Thao Romero V. Un iversity of 11:52:00 [place] [facility] LIPID PANEL 2023-02-07 Thao Romero V. [place] of 11:52:00 [place] [facility] HEMOGLOBIN A1C 2023-02-07 Thao Romero V. [place] of 11:52:00 [place] [facility] GLUCOSE LEVEL 2023-02-07 Thao Romero V. [place] of 11:52:00 [place] [facility] BLOOD UREA NITROGEN 2023-02-07 Thao Romero V. [place] o f 11:52:00 [place] [facility] ELECTROLYTE PANEL 2023-02-07 Thao Romero V. [place] of 11:52:00 [place] [facility] SERUM CREATININE 2023-02-07 Thao Romero V. [place] of 11:52:00 [place] [facility] .GLOMERULAR FILTRATION RATE 2023-02-07 Thao Romero V. Univ ersity of 11:52:00 [place] [facility] CALCIUM LEVEL TOTAL 2023-02-07 Thao Romero V. [place] o f 11:52:00 [place] [facility] ALBUMIN LEVEL 2023-02-07 Thao Romero V. [place] of 11:52:00 [place] [facility] ALKALINE PHOSPHATASE 2023-02-07 Thao Romero V. [place] of 11:52:00 [place] [facility] ALANINE AMINOTRANSFERASE 2023-02-07 Thao Romero V. Univers ity of 11:52:00 [place] [facility] ASPARTATE AMINOTRANSFERASE 2023-02-07 Thao Romero V. Unive rsity of 11:52:00 [place] [facility] TOTAL PROTEIN 2023-02-07 Thao Romero V. [place] of 11:52:00 [place] [facility] FRACTIONATED BILIRUBIN 2023-02-07 [facility]. [facility] 11:52:00 [facility] Results CBC 2023-02-07 Mark [place] of 11:52:00 [facility] MANUAL DIFFERENTIAL 2023-02-07 [facility] o f 11:52:00 [facility] C. DIFFICILE DNA DETECTION 2023-02-07 Thao [facility]ero V. [facility] of 10:18:00 [facility] C DIFFICILE DNA ASSAY PATH 2023-02-07 Thao Romero V. [facility] rsity of REVIEW 10:18:00 [place] [facility] GASTROINTESTINAL MULTIPLEX 2023-02-07 Thao Romero V. Univjessica rsity of PCR PANEL 10:16:00 [place] [facility] GASTROINTESTINAL MULTIPLEX 2023-02-07 Thao Romero V. [facility] rsity of PANEL PATH REVIEW 10:16:00 [place] MD Ruelas [facility] POC GLUCOSE SCREEN 2023-02-[address] [facility] 03:51:00 [place] [facility] POC GLUCOSE SCREEN 2023-02-07 Thao Romero V. [place] of 00:28:00 [facility] EKG, 12-LEAD (PORTABLE) 2023-02-07 Irina Houston ity of 00:00:00 [facility] POC GLUCOSE SCREEN 2023-02-06 Thao Romero V. [place] of 22:13:00 [place] MD Liane olivier [facility] Center POC GLUCOSE SCREEN 2023-02-06 Thao Romero V. [place] of 19:18:00 [place] [facility] Center POC GLUCOSE SCREEN 2023-02-06 Thao Romero V. [place] of 18:26:00 [place] [facility] GENERAL LABORATORY ADD ON 2023-02-06 Thao Romero V. [facility] sity of TEST 16:44:00 [place] [facility]yDr[facility] BLOODCULTURE 2023-02-[address] [facility] 16:11:00 [facility] POC GLUCOSE SCREEN 2023-02-06 Amanda Proctor [place] of 14:46:00 [place] [facility] POC GLUCOSE SCREEN 2023-02-[address] [facility] 12:40:00 [place] [facility] POC GLUCOSE SCREEN 2023-02-06 StevoAmanda [place] of 08:20:00 [place] [facility] BASIC METABOLIC PANEL, 2023-02-06 Noel Floresit y of CALCIUM TOTAL 08:05:00 [facility] MAGNESIUM LEVEL 2023-02-[address] [facility] 08:05:00 [facility] PHOSPHORUS LEVEL 2023-02-[address] [facility] 08:05:00 [facility] COMPLETE BLOOD COUNT W/ 2023-02-06 Noel Floresi ty of DIFFERENTIAL 08:05:00 [facility] GLUCOSE LEVEL 2023-02-[address] [facility] 08:05:00 [place] [facility] BLOOD UREA NITROGEN 2023-02-[address] [facility] 08:05:00 [place] [facility] ELECTROLYTE PANEL 2023-02-[address] [facility] 08:05:00 [place] [facility] SERUM CREATININE 2023-02-[address] [facility] 08:05:00 [place] [facility] .GLOMERULAR FILTRATION RATE 2023-02-06 Cathie Meneses Uni versity of 08:05:00 [place] MD [facility] CALCIUM LEVEL TOTAL 2023-02-[address] [facility] 08:05:00 [place] MD Liane olivier [facility] Results CBC 2023-02-[address] [facility] 08:05:00 [place] Liane olivier [facility] MANUAL DIFFERENTIAL 2023-02-[address] [facility] 08:05:00 [place] [facility] olivier [facility] NT PRO BNP 2023-02-[address] [facility] 08:05:00 [place] [facility] PROCALCITONIN 2023-02-[address] [facility] 08:05:00 [place] Liane olivier [facility] C REACTIVE PROTEIN 2023-02-06 Cathie Meneses [place] o f 08:05:00 [place] Liane olivier [facility] POC GLUCOSE SCREEN 2023-02-06 Amanda Proctor 06:17:00 [place] [facility] TROPONIN T 2023-02-[address] [facility] 06:09:00 [place] [facility]yDr[facility] URINE CULTURE 2023-02-[address] [facility] 05:40:00 [place] Liane olivier [facility] PROTHROMBIN TIME 2023-02-06 [facility] 01:26:00 [place] [facility] APTT 2023-02-06 [facility] 01:26:00 [place] [facility] olivier [facility] D DIMER 2023-02-[address] [facility] 01:26:00 [place] [facility]chrissyDr[facility] LACTIC ACID, VENOUS 2023-02-06 [facility] o f 01:26:00 [place] Liane olivier [facility] XR ABDOMEN AP 2023-02-05 Amanda Proctor 23:59:27 [place] Liane olivier [facility] XR CHEST 1 VW 2023-02-05 Amanda Proctor 23:57:49 [place] [facility] COVID-19 (SARS-COV-2) PCR - 2023-02-05 Amanda Proctor [facility] ersity of ASYMPTOMATIC - LT 22:09:00 Bere Millerer [facility] POC GLUCOSE SCREEN 2023-02-05 Ismael [facility] Eckert [place] of 21:27:00 [place] Liane olivier [facility] BLOODCULTURE 2023-02-05 Esthela, Amanda Haq of 20:39:00 [place] Liane olivier [facility] BLOODCULTURE 2023-02-05 Esthela, Amanda Haq of 20:30:00 [place] [facility] olivier [facility] COMPLETE BLOOD COUNT W/ 2023-02-05 Amanda Proctori ty of DIFFERENTIAL 20:30:00 [place] MD Liane olivier [facility] MAGNESIUM LEVEL 2023-02-05 Esthela, Amanda Haq of 20:30:00 [place] MD Liane olivier [facility] PHOSPHORUS LEVEL 2023-02-05 Esthela, Amanda Haq of 20:30:00 [place] [facility] olivier [facility] NT PRO BNP 2023-02-05 Esthela, Amanda Haq of 20:30:00 [place] MD Liane olivier [facility] TROPONIN T 2023-02-05 Esthela, Amanda Haq of 20:30:00 [place] [facility]chrissyDr[facility] CREATINE KINASE 2023-02-05 Esthela, Amanda Haq of 20:30:00 [place] [facility]chrissyDr[facility] CKMB 2023-02-05 Esthela, Amanda Haq of 20:30:00 [place] MD Liane olivier [facility] C REACTIVE PROTEIN 2023-02-05 Esthela, Amanda Haq of 20:30:00 [place] [facility]chrissyDr[facility] COMPREHENSIVE METABOLIC PANEL 2023-02-05 Amanda Proctor iversity of 20:30:00 [place] MD Rob [facility] PROCALCITONIN 2023-02-05 Amanda Proctor of 20:30:00 [place] MD Liane olivier [facility] AMYLASE LEVEL 2023-02-05 Esthela, Amanda Haq of 20:30:00 [place] MD Liane olivier [facility] LIPASE LEVEL 2023-02-05 Esthela, Amanda Haq of 20:30:00 [place] MD Liane olivier [facility] Results CBC 2023-02-05 Esthela, Amanda Haq of 20:30:00 [place] MD Liane olivier [facility] MANUAL DIFFERENTIAL 2023-02-05 Esthela, Amanda Haq o f 20:30:00 [place] MD Liane olivier [facility] GLUCOSE LEVEL 2023-02-05 Amanda Proctor of 20:30:00 [place] [facility]chrissyDr[facility] BLOOD UREA NITROGEN 2023-02-05 Esthela, Amanda Haq o f 20:30:00 [place] [facility] soy [facility] ELECTROLYTE PANEL 2023-02-05 Amanda Proctor of 20:30:00 [place] [facility] SERUM CREATININE 2023-02-05 Esthela, Amanda [place] of 20:30:00 [place] [facility] .GLOMERULAR FILTRATION RATE 2023-02-05 Amanda Proctor [facility] ersity of 20:30:00 [place] [facility] CALCIUM LEVEL TOTAL 2023-02-05 Amanda Proctor o f 20:30:00 [place] MD [facility]reonDr[facility] ALBUMIN LEVEL 2023-02-05 Amanda Proctor of 20:30:00 [place] [facility] ALKALINE PHOSPHATASE 2023-02-05 Amanda Proctor [place] of 20:30:00 [place] [facility] ALANINE AMINOTRANSFERASE 2023-02-05 Amanda Proctor ity of 20:30:00 [place] [facility] ASPARTATE AMINOTRANSFERASE 2023-02-05 Amanda Proctor [facility] rs[facility] of 20:30:00 [place] [facility] TOTAL PROTEIN 2023-02-05 Amanda Proctor [place] of 20:30:00 [place] [facility] FRACTIONATED BILIRUBIN 2023-02-05 Amanda Proctorit y of 20:30:00 [place] [facility] URINALYSIS MICROSCOPIC 2023-02-05 CelsoIrina olivier C Universi ty of 05:39:00 [place] [facility] EKG, 12-LEAD (PORTABLE) 2023-02-05 [facility] 00:[facility]:00 [place] [facility] COMPREHENSIVE METABOLIC PANEL 2023-02-04 Vaibhav Rosario of 17:33:52 [place] [facility] COMPLETE BLOOD COUNT W/ 2023-02-04 Vaibhav Rosario rsity of DIFFERENTIAL 17:33:52 [place] [facility] MAGNESIUM LEVEL 2023-02-04 Vaibhav Rosario [place] of 17:33:52 Bere olivier [facility] PHOSPHORUS LEVEL 2023-02-04 [facility] [place], [facility] o f 17:33:52 Bere olivier [facility] GLUCOSE LEVEL 2023-02-04 Vaibhav Rosario [place] of 17:33:52 Bere olivier [facility] BLOOD UREA NITROGEN 2023-02-04 Vaibhav Rosario [facility] y of 17:33:52 Bere olivier [facility] ELECTROLYTE PANEL 2023-02-04 [employer] [facility] of 17:33:52 Bere olivier [facility] SERUM CREATININE 2023-02-04 [facility], [facility] o f 17:33:52 Bere olivier [facility] .GLOMERULAR FILTRATION RATE 2023-02-04 Vaibhav Rosario niversity of 17:33:52 Bere olivier [facility] CALCIUM LEVEL TOTAL 2023-02-04 [facility] JannetVaibhav lopez [facility] y of 17:33:52 Bere olivier [facility] ALBUMIN LEVEL 2023-02-04 [facility] of 17:33:52 Bere olivier [facility] ALKALINE PHOSPHATASE 2023-02-04 [facility] of 17:33:52 Bere olivier [facility] ALANINE AMINOTRANSFERASE 2023-02-04 Vaibhav Rosario [facility] ersity of 17:33:52 Bere olivier [facility] ASPARTATE AMINOTRANSFERASE 2023-02-04 Vaibhav Rosario iversity of 17:33:52 Bere olivier [facility] TOTAL PROTEIN 2023-02-04 Vaibhav Rosario [place] of 17:33:52 Bere olivier [facility] FRACTIONATED BILIRUBIN 2023-02-04 Vaibhav Rosario [facility] sity of 17:33:52 Bere olivier [facility] Results CBC 2023-02-04 Vaibhav Rosario [place] of 17:33:52 Bere olivier [facility] MANUAL DIFFERENTIAL 2023-02-04 Vaibhav Rosario [facility] y of 17:33:52 [facility]re [facility] POC GLUCOSE SCREEN 2023-02-01 Simbaradha Fentono, Universit y of 18:19:00 [facility]ian [facility] POC GLUCOSE SCREEN 2023-02-01 Simbaradha Wiley, Universit y of 12:47:00 Elian olivier [facility] BASIC METABOLIC PANEL, 2023-02-01 [facility] of CALCIUM TOTAL 09:00:00 [place] MD Liane olivier [facility] MAGNESIUM LEVEL 2023-02-01 [facility] of 09:00:00 [place] Liane olivier [facility] PHOSPHORUS LEVEL 2023-02-01 [facility] of 09:00:00 [place] Liane olivier [facility] COMPLETE BLOOD COUNT W/ 2023-02-01 [facility] ty of DIFFERENTIAL 09:00:00 [place] MD Liane olivier [facility] GLUCOSE LEVEL 2023-02-01 [facility] of 09:00:00 [place] MD Liane olivier [facility] BLOOD UREA NITROGEN 2023-02-01 [facility] o f 09:00:00 [place] MD Liane olivier [facility] ELECTROLYTE PANEL 2023-02-01 [facility] of 09:00:00 [place] MD Liane olivier [facility] SERUM CREATININE 2023-02-01 [facility] of 09:00:00 [place] MD Liane olivier [facility] .GLOMERULAR FILTRATION RATE 2023-02-01 [facility] ersity of 09:00:00 [place] MD Liane olivier [facility] CALCIUM LEVEL TOTAL 2023-02-01 [facility] o f 09:00:00 [place] Liane olivier [facility] Results CBC 2023-02-01 [facility] of 09:00:00 [place] Liane olivier [facility] MANUAL DIFFERENTIAL 2023-02-01 [facility] o f 09:00:00 Bere olivier [facility] POC GLUCOSE SCREEN 2023-02-01 Simmarisa Wiley, Universit y of 02:36:00 Elian [facility]ier [facility] POC GLUCOSE SCREEN 2023-01-31 Simbaradha Wiley, Universit y of 21:55:00 Elian [facility]ier [facility] POC GLUCOSE SCREEN 2023-01-31 Kt Wiley, Universit y of 17:13:00 Elian olivier [facility] Center POC GLUCOSE SCREEN 2023-01-31 Simmarisa Wiley, Universit y of 13:08:00 Elian olivier [facility] BASIC METABOLIC PANEL, 2023-01-31 [facility] y of CALCIUM TOTAL 08:15:00 [place] Liane olivier [facility] MAGNESIUM LEVEL 2023-01-31 [facility] of 08:15:00 [place] Liane olivier [facility] PHOSPHORUS LEVEL 2023-01-31 Nabeel, [facility] of 08:15:00 [place] MD Liane olivier [facility] COMPLETE BLOOD COUNT W/ 2023-01-31 [facility] ty of DIFFERENTIAL 08:15:00 [place] MD Liane olivier [facility] GLUCOSE LEVEL 2023-01-31 [facility] of 08:15:00 [place] MD Liane olivier [facility] BLOOD UREA NITROGEN 2023-01-31 [facility] o f 08:15:00 [place] Liane olivier [facility] ELECTROLYTE PANEL 2023-01-31 [facility] of 08:15:00 [place] MD Liane olivier [facility] SERUM CREATININE 2023-01-31 [facility] of 08:15:00 [place] [facility] .GLOMERULAR FILTRATION RATE 2023-01-31 [facility] ersity of 08:15:00 [place] MD Liane olivier [facility] CALCIUM LEVEL TOTAL 2023-01-31 [facility] o f 08:15:00 [place] MD Liane olivier [facility] Results CBC 2023-01-31 [facility] of 08:15:00 [place] MD Liane olivier [facility] MANUAL DIFFERENTIAL 2023-01-31 [facility] o f 08:15:00 [place] Liane olivier [facility] POC GLUCOSE SCREEN 2023-01-31 Kt Wiley, Universit y of 02:23:00 Elian [facility]ier [facility] POC GLUCOSE SCREEN 2023-01-30 Kt Wiley, Universit y of 22:38:00 Elian [facility]ier [facility] POC GLUCOSE SCREEN 2023-01-30 Simmarisa Wiley, Universit y of 17:51:00 Elian [place] MD Liane olivier [facility] Center POC GLUCOSE SCREEN 2023-01-30 Simmarisa Wiley, Univers y of 14:45:00 Elian Rob [facility] BASIC METABOLIC PANEL, 2023-01-30 [facility] y of CALCIUM TOTAL 08:14:00 [place] Liane olivier [facility] MAGNESIUM LEVEL 2023-01-30 [facility] of 08:14:00 [place] Liane olivier [facility] PHOSPHORUS LEVEL 2023-01-30 [facility] of 08:14:00 [place] MD Liane olivier [facility] COMPLETE BLOOD COUNT W/ 2023-01-30 [facility] ty of DIFFERENTIAL 08:14:00 [place] MD Rob [facility] GLUCOSE LEVEL 2023-01-30 [facility] of 08:14:00 [place] MD Rob [facility] BLOOD UREA NITROGEN 2023-01-30 [facility] o f 08:14:00 [place] MD Liane olivier [facility] ELECTROLYTE PANEL 2023-01-30 [facility] of 08:14:00 [place] [facility] SERUM CREATININE 2023-01-30 [facility] of 08:14:00 [place] [facility] .GLOMERULAR FILTRATION RATE 2023-01-30 [facility] ersity of 08:14:00 [place] MD Liane olivier [facility] CALCIUM LEVEL TOTAL 2023-01-30 [facility] o f 08:14:00 [place] MD Liane olivier [facility] Results CBC 2023-01-30 [facility] of 08:14:00 [place] MD Liane olivier [facility] MANUAL DIFFERENTIAL 2023-01-30 [facility] o f 08:14:00 [place] MD Liane olivier [facility] Center POC GLUCOSE SCREEN 2023-01-30 Kt Wiley Univers y of 02:40:00 Elian olivier [facility] POC GLUCOSE SCREEN 2023-01-30 Kt Wiley, Univers y of 00:24:00 Elian [place] MD Liane olivier [facility] POC GLUCOSE SCREEN 2023-01-29 Kt Wiley Universit y of 22:51:00 Elian olivier [facility] VERIFY CATHETER TIP PLACEMENT 2023-01-29 Justo Banuelos [place] of 20:08:01 Bere olivier [facility] XR CHEST 1 VW POST IMPLANT 2023-01-29 Kt Wiley U niversity of 19:59:15 Elian olivier [facility] INSERT VASCULAR ACCESS DEVICE 2023-01-29 Kt Wiley [place] of 19:04:31 Elian olivier [facility] POC GLUCOSE SCREEN 2023-01-29 Kt Wiley Univers y of 19:04:00 Elian olivier [facility] POC GLUCOSE SCREEN 2023-01-29 Kt Wiley [facility] y of 13:50:00 Elian olivier [facility] BASIC METABOLIC PANEL, 2023-01-29 [facility] y of CALCIUM TOTAL 08:33:00 [place] MD Rob [facility] MAGNESIUM LEVEL 2023-01-29 [facility] of 08:33:00 [place] MD Rob [facility] PHOSPHORUS LEVEL 2023-01-29 [facility] of 08:33:00 [place] MD Rob [facility] COMPLETE BLOOD COUNT W/ 2023-01-29 [facility] ty of DIFFERENTIAL 08:33:00 Bere olivier [facility] GLUCOSE LEVEL 2023-01-29 Nabeel [facility] of 08:33:00 [place] MD Rob [facility] BLOOD UREA NITROGEN 2023-01-29 [facility] o f 08:33:00 [place] [facility] ELECTROLYTE PANEL 2023-01-29 Nabeel, [facility] of 08:33:00 [place] MD Rob [facility] SERUM CREATININE 2023-01-29 [facility] of 08:33:00 [place] [facility] .GLOMERULAR FILTRATION RATE 2023-01-29 Nabeel, [facility] ersity of 08:33:00 [place] MD Rob [facility] CALCIUM LEVEL TOTAL 2023-01-29 [facility] o f 08:33:00 [place] MD Liane olivier [facility] Results CBC 2023-01-29 Nabeel, [facility] of 08:33:00 [place] MD Liane olivier [facility] MANUAL DIFFERENTIAL 2023-01-29 Nabeel [facility] o f 08:33:00 [place] MD Liane olivier [facility] POC GLUCOSE SCREEN 2023-01-29 Simbaqueba Saurabh, Universit y of 03:21:00 Elian [place] MD Rob [facility] POC GLUCOSE SCREEN 2023-01-28 Simbaqueba Saurabh, Universit y of 23:27:00 Elian [place] MD Liane olivier [facility] POC GLUCOSE SCREEN 2023-01-28 Simbaqueba Saurabh, Universit y of 17:57:00 [facility] MD Rob [facility] POC GLUCOSE SCREEN 2023-01-28 Simbaqueba Saurabh, Universit y of 15:38:00 [facility] MD Liane olivier [facility] HEMOGLOBIN 2023-01-28 [facility] [place] of 13:24:00 [place] MD Liane olivier [facility] HEMATOCRIT 2023-01-28 [facility] of 13:24:00 [place] MD Liane olivier [facility] POC GLUCOSE SCREEN 2023-01-28 Simbaqueba Saurabh, Universit y of 13:17:00 [facility] MD Liane olivier [facility] HEMOGLOBIN 2023-01-28 GioMana cope [place] of 08:00:00 [place] Liane olivier [facility] HEMATOCRIT 2023-01-28 Mana Powers [place] of 08:00:00 [place] MD Liane olivier [facility] BASIC METABOLIC PANEL, 2023-01-28 [facility] y of CALCIUM TOTAL 08:00:00 [place] MD Liane olivier [facility] MAGNESIUM LEVEL 2023-01-28 Nabeel [facility] of 08:00:00 [place] MD Liane olivier [facility] PHOSPHORUS LEVEL 2023-01-28 Nabeel [facility] of 08:00:00 [place] MD [facility] COMPLETE BLOOD COUNT W/ 2023-01-28 Nabeel [facility] ty of DIFFERENTIAL 08:00:00 [place] MD Liane olivier [facility] GLUCOSE LEVEL 2023-01-28 [facility] of 08:00:00 [place] MD Liane olivier [facility] BLOOD UREA NITROGEN 2023-01-28 [facility] o f 08:00:00 [place] MD Liane olivier [facility] ELECTROLYTE PANEL 2023-01-28 [facility] of 08:00:00 [place] MD Liane olivier [facility] SERUM CREATININE 2023-01-28 [facility] of 08:00:00 [place] MD Liane olivier [facility] .GLOMERULAR FILTRATION RATE 2023-01-28 [facility] ersity of 08:00:00 [place] MD Liane olivier [facility] CALCIUM LEVEL TOTAL 2023-01-28 [facility] o f 08:00:00 [place] MD Liane olivier [facility] Results CBC 2023-01-28 [facility] of 08:00:00 [place] MD Liane olivier [facility] MANUAL DIFFERENTIAL 2023-01-28 [facility] o f 08:00:00 [place] MD Liane olivier [facility] Center POC GLUCOSE SCREEN 2023-01-28 [facility] 03:34:00 Jaycee [place] [facility] POC GLUCOSE SCREEN 2023-01-28 [facility] 00:42:00 Jaycee [place] Liane olivier [facility] HEMOGLOBIN 2023-01-27 [facility] of 21:15:00 [place] MD Liane olivier [facility] HEMATOCRIT 2023-01-27 [facility] of 21:15:00 [place] MD Liane olivier [facility] POC GLUCOSE SCREEN 2023-01-27 [facility] of 19:38:00 Jaycee [place] Liane olivier [facility] POC GLUCOSE SCREEN 2023-01-27 [facility] Hospital[facility]a [place] of 16:11:00 [place] MD Liane olivier [facility] POC GLUCOSE SCREEN 2023-01-27 [facility] [place] of 13:43:00 [place] MD Liane olivier [facility] BASIC METABOLIC PANEL, 2023-01-27 [facility] of CALCIUM TOTAL 07:48:00 [place] MD Liane olivier [facility] MAGNESIUM LEVEL 2023-01-27 [facility] of 07:48:00 [place] MD Liane olivier [facility] PHOSPHORUS LEVEL 2023-01-27 [facility] of 07:48:00 [place] [facility] soy [facility] COMPLETE BLOOD COUNT W/ 2023-01-27 [facility] ty of DIFFERENTIAL 07:48:00 [place] MD Liane olivier [facility] GLUCOSE LEVEL 2023-01-27 [facility] of 07:48:00 [place] [facility] soy [facility] BLOOD UREA NITROGEN 2023-01-27 [facility] o f 07:48:00 [place] MD Liane olivier [facility] ELECTROLYTE PANEL 2023-01-27 [facility] of 07:48:00 [place] [facility] SERUM CREATININE 2023-01-27 [facility] of 07:48:00 [place] [facility] .GLOMERULAR FILTRATION RATE 2023-01-27 [facility] ersity of 07:48:00 [place] MD Liane olivier [facility] CALCIUM LEVEL TOTAL 2023-01-27 [facility] o f 07:48:00 [place] MD Liane olivier [facility] Results CBC 2023-01-27 [facility] of 07:48:00 [place] MD Liane olivier [facility] MANUAL DIFFERENTIAL 2023-01-27 [facility] o f 07:48:00 [place] MD Liane olivier [facility] POC GLUCOSE SCREEN 2023-01-27 [facility] of 04:16:00 [place] MD Liane olivier [facility] URINE CULTURE 2023-01-[address] [facility] of 03:45:00 [place] MD Liane olivier [facility] URINALYSIS WITH MICROSCOPIC 2023-01-27 Amanda Proctor [facility] ersity of IF INDICATED 03:45:00 [place] MD Liane olivier [facility] URINALYSIS MICROSCOPIC EXAM 2023-01-27 Amanda Proctor [facility] ersity of 03:45:00 [place] MD Liane olivier [facility] POC GLUCOSE SCREEN 2023-01-27 [facility] of 00:34:00 [place] MD Liane olivier [facility] POC GLUCOSE SCREEN 2023-01-26 [facility] of 22:30:00 [place] [facility] COVID-19 (SARS-COV-2) PCR - 2023-01-26 VietsAmanda ersity of ASYMPTOMATIC - LT 21:34:00 Bere bates [facility] BLOODCULTURE 2023-01-26 Amanda Proctor of 19:44:00 Bere olivier [facility] COMPLETE BLOOD COUNT W/ 2023-01-26 Amanda Proctor ty of DIFFERENTIAL 19:44:00 Bere olivier [facility] MAGNESIUM LEVEL 2023-01-26 Amanda Proctor of 19:44:00 Bere olivier [facility] PHOSPHORUS LEVEL 2023-01-26 Amanda Proctor of 19:44:00 [place] MD Liane olivier [facility] FRACTIONATED BILIRUBIN 2023-01-26 Amanda Proctorit y of 19:44:00 Bere olivier [facility] AMYLASE LEVEL 2023-01-26 Amanda Proctor of 19:44:00 [place] MD Liane olivier [facility] LIPASE LEVEL 2023-01-26 Amanda Proctor of 19:44:00 Bere olivier [facility] LACTATE DEHYDROGENASE 2023-01-26 Amanda Proctor of 19:44:00 [place] MD Liane olivier [facility] C REACTIVE PROTEIN 2023-01-26 Amanda Proctor of 19:44:00 [place] MD Liane olivier [facility] COMPREHENSIVE METABOLIC PANEL 2023-01-26 Amanda Proctor iversity of 19:44:00 [place] MD Liane olivier [facility] PROCALCITONIN 2023-01-26 Amanda Proctor of 19:44:00 [place] MD Liane olivier [facility] Results CBC 2023-01-26 Amanda Proctor of 19:44:00 Bere olivier [facility] MANUAL DIFFERENTIAL 2023-01-26 Amanda Proctor o f 19:44:00 [place] MD Liane olivier [facility] GLUCOSE LEVEL 2023-01-26 Amanda Proctor of 19:44:00 Bere olivier [facility] BLOOD UREA NITROGEN 2023-01-26 Amanda Proctor o f 19:44:00 Bere olivier [facility] ELECTROLYTE PANEL 2023-01-26 Amanda Proctro of 19:44:00 [place] Liane olivier [facility] SERUM CREATININE 2023-01-26 Amanda Proctor of 19:44:00 [place] [facility] .GLOMERULAR FILTRATION RATE 2023-01-26 [facility] ersity of 19:44:00 [place] [facility] CALCIUM LEVEL TOTAL 2023-01-26 [facility] o f 19:44:00 [place] [facility] ALBUMIN LEVEL 2023-01-26 [facility] of 19:44:00 [place] [facility] ALKALINE PHOSPHATASE 2023-01-26 [facility] of 19:44:00 [place] [facility] ALANINE AMINOTRANSFERASE 2023-01-26 [facility] ity of 19:44:00 [place] [facility] ASPARTATE AMINOTRANSFERASE 2023-01-26 [facility] rsity of 19:44:00 [place] [facility] TOTAL PROTEIN 2023-01-26 [facility] of 19:44:00 [place] [facility] COMPREHENSIVE METABOLIC PANEL 2023-01-20 Lorena Hdez [facility] of 17:53:46 [place] [facility] COMPLETE BLOOD COUNT W/ 2023-01-20 [facility] versity of DIFFERENTIAL 17:53:46 [place] [facility] MAGNESIUM LEVEL 2023-01-20 [facility] of 17:53:46 [place] [facility] PHOSPHORUS LEVEL 2023-01-20 HdezSimonaLorenaAtrium Health [facility] of 17:53:46 Bere GRIFFIN [facility] GLUCOSE LEVEL 2023-01-20 [facility] of 17:53:46 [place] [facility] BLOOD UREA NITROGEN 2023-01-20 [facility] ity of 17:53:46 [place] [facility] ELECTROLYTE PANEL 2023-01-20 [facility] 17:53:46 [place] [facility] SERUM CREATININE 2023-01-20 [facility] of 17:53:46 [place] [facility] .GLOMERULAR FILTRATION RATE 2023-01-20 [facility] of 17:53:46 [place] MD [facility] CALCIUM LEVEL TOTAL 2023-01-20 HdezLorenaMelbourne [facility] ity of 17:53:46 [place] MD Liane olivier [facility] ALBUMIN LEVEL 2023-01-20 [facility] CenterSimonaLorenaAt[facility] of 17:53:46 [place] MD Liane olivier [facility] ALKALINE PHOSPHATASE 2023-01-20 L[facility] Hdez [facility] of 17:53:46 Bere olivier [facility] ALANINE AMINOTRANSFERASE 2023-01-20 [facility] iversity of 17:53:46 [place] MD Liane olivier [facility] ASPARTATE AMINOTRANSFERASE 2023-01-20 [facility] CenterSimonaLorenaAtrium [facility] of 17:53:46 [place] MD Liane olivier [facility] TOTAL PROTEIN 2023-01-20 [facility] CenterSimonaLorena KaylaHouston [facility] Hospital of 17:53:46 [place] [facility]in olivier [facility] FRACTIONATED BILIRUBIN 2023-01-20 HdezSimonaLorenaSentara RMH Medical [facility] ersity of 17:53:46 [place] MD Liane olivier [facility] Results CBC 2023-01-20 HdezSimonaLorenaAtrium Health [place] of 17:53:46 [place] MD Liane olivier [facility] MANUAL DIFFERENTIAL 2023-01-20 HdezLorenaMelbourne [facility] ity of 17:53:46 [place] MD Liane olivier [facility] CONTROLLED SUBSTANCE 2023-01-20 [facility], [facility]INE 17:37:00 [facility]john [facility] hospitalcarlos Blackburn [facility] TETRAHYDROCANNABINOL 2023-01-20 [facility] [place], UR 17:37:00 Rogerio Blackburn MD [facility] POC URINE DRUG SCREEN PANEL, 2023-01-20 [facility] versity of QUALITATIVE 17:37:00 [facility] nhrmccarlos [facility] POC GLUCOSE SCREEN 2023-01-18 [facility] of 18:10:00 [place] MD Liane olivier [facility] POC GLUCOSE SCREEN 2023-01-18 [facility] of 12:46:00 [place] MD Rob [facility] BASIC METABOLIC PANEL, 2023-01-18 Ankit Locke rsity of CALCIUM TOTAL 09:03:00 [place] MD AndersDr. Dan C. Trigg [facility] MAGNESIUM LEVEL 2023-01-18 Ankit Locke [place] f 09:03:00 [place] [facility] PHOSPHORUS LEVEL 2023-01-18 Ankit Locke [place] of 09:03:00 [place] [facility] COMPLETE BLOOD COUNT W/ 2023-01-18 Ankit Locke [facility] ersity of DIFFERENTIAL 09:03:00 [place] [facility] GLUCOSE LEVEL 2023-01-18 Ankit Locke o f 09:03:00 [place] [facility] BLOOD UREA NITROGEN 2023-01-18 Ankit Locke [facility] ty of 09:03:00 [place] [facility] ELECTROLYTE PANEL 2023-01-18 Ankit Locke [place] of 09:03:00 [place] [facility] SERUM CREATININE 2023-01-18 Ankit Locke [place] of 09:03:00 [place] [facility] .GLOMERULAR FILTRATION RATE 2023-01-18 Ankit Locke [place] of 09:03:00 [place] [facility] CALCIUM LEVEL TOTAL 2023-01-18 Ankit Locke [facility] ty of 09:03:00 [place] [facility] Results CBC 2023-01-18 Ankit Locke [place] f 09:03:00 [place] [facility] MANUAL DIFFERENTIAL 2023-01-18 Ankit Locke [facility] of 09:03:00 [place] [facility] POC GLUCOSE SCREEN 2023-01-18 [facility] of 02:33:00 [place] [facility] POC GLUCOSE SCREEN 2023-01-17 [facility] of 23:22:00 [place] [facility] POC GLUCOSE SCREEN 2023-01-17 [facility] of 17:43:00 [place] [facility] POC GLUCOSE SCREEN 2023-01-17 [facility] of 13:58:00 [place] [facility] BASIC METABOLIC PANEL, 2023-01-17 Ankit Locke Unive rsity of CALCIUM TOTAL 09:31:00 [place] [facility] MAGNESIUM LEVEL 2023-01-17 Ankit Locke [place] f 09:31:00 [place] [facility] PHOSPHORUS LEVEL 2023-01-17 Ankit Locke [place] of 09:31:00 [place] [facility] COMPLETE BLOOD COUNT W/ 2023-01-17 Ankit Locke ersity of DIFFERENTIAL 09:31:00 [place] [facility] GLUCOSE LEVEL 2023-01-17 Ankit Locke [place] f 09:31:00 [place] [facility] BLOOD UREA NITROGEN 2023-01-17 Ankit Locke [facility] ty of 09:31:00 [place] [facility] ELECTROLYTE PANEL 2023-01-17 Ankit Locke [place] of 09:31:00 [place] [facility] SERUM CREATININE 2023-01-17 Ankit Locke [place] of 09:31:00 [place] [facility] .GLOMERULAR FILTRATION RATE 2023-01-17 Ankit Locke [place] of 09:31:00 [place] [facility] CALCIUM LEVEL TOTAL 2023-01-17 Ankit Locke [facility] ty of 09:31:00 [place] [facility] Results CBC 2023-01-17 Ankit Locke [place] f 09:31:00 [place] [facility] MANUAL DIFFERENTIAL 2023-01-17 Ankit Locke [facility] of 09:31:00 [place] [facility] POC GLUCOSE SCREEN 2023-01-17 [facility] of 01:43:00 [place] [facility] POC GLUCOSE SCREEN 2023-01-16 [facility] of 22:16:00 [place] [facility] POC GLUCOSE SCREEN 2023-01-16 [facility] of 17:25:00 [place] [facility] POC GLUCOSE SCREEN 2023-01-16 [facility] of 14:01:00 [place] [facility] BASIC METABOLIC PANEL, 2023-01-16 Ankit Locke [facility] rsity of CALCIUM TOTAL 11:22:00 [place] [facility] MAGNESIUM LEVEL 2023-01-16 Ankit Locke o f 11:22:00 [place] [facility] PHOSPHORUS LEVEL 2023-01-16 Ankit Locke [place] of 11:22:00 [place] [facility] COMPLETE BLOOD COUNT W/ 2023-01-16 Aknit Locke [facility] ersity of DIFFERENTIAL 11:22:00 [place] [facility] GLUCOSE LEVEL 2023-01-16 Ankit Locke [place] f 11:22:00 [place] [facility] BLOOD UREA NITROGEN 2023-01-16 [facility] 11:22:00 [place] [facility] ELECTROLYTE PANEL 2023-01-16 Ankit Locke [place] of 11:22:00 [place] [facility] SERUM CREATININE 2023-01-16 Ankit Locke [place] of 11:22:00 [place] [facility] .GLOMERULAR FILTRATION RATE 2023-01-16 Ankit Locke [place] of 11:22:00 [place] [facility] CALCIUM LEVEL TOTAL 2023-01-16 Ankit Locke [facility] ty of 11:22:00 [place] [facility] Results CBC 2023-01-16 Ankit Locke [place] f 11:22:00 [place] [facility] MANUAL DIFFERENTIAL 2023-01-16 [facility] 11:22:00 [place] [facility] POC GLUCOSE SCREEN 2023-01-16 [facility] of 01:34:00 [place] [facility] POC GLUCOSE SCREEN 2023-01-15 [facility] of 23:29:00 [place] [facility] Center POC GLUCOSE SCREEN 2023-01-15 [facility] of 18:11:00 [place] [facility] POC GLUCOSE SCREEN 2023-01-15 [facility] of 13:12:00 [place] Liane olivier [facility] BASIC METABOLIC PANEL, 2023-01-15 Ankit Locke [facility] rsity of CALCIUM TOTAL 07:23:00 [place] Liane olivier [facility] MAGNESIUM LEVEL 2023-01-15 Ankit Locke [place] f 07:23:00 [place] Liane olivier [facility] PHOSPHORUS LEVEL 2023-01-15 Ankit Locke [place] of 07:23:00 [place] Liane olivier [facility] COMPLETE BLOOD COUNT W/ 2023-01-15 Ankit Locke ersity of DIFFERENTIAL 07:23:00 [place] Liane olivier [facility] GLUCOSE LEVEL 2023-01-15 Ankit Locke [place] f 07:23:00 [place] Liane olivier [facility] BLOOD UREA NITROGEN 2023-01-15 Ankit Locke [facility] ty of 07:23:00 [place] Liane olivier [facility] ELECTROLYTE PANEL 2023-01-15 Ankit Locke [place] of 07:23:00 [place] [facility] SERUM CREATININE 2023-01-15 Ankit Locke [place] of 07:23:00 [place] [facility] .GLOMERULAR FILTRATION RATE 2023-01-15 Ankit Locke [place] of 07:23:00 [place] Liane olivier [facility] CALCIUM LEVEL TOTAL 2023-01-15 Ankit Locke [facility] of 07:23:00 [place] Liane olivier [facility] Results CBC 2023-01-15 Ankit Locke [place] f 07:23:00 [place] Liane olivier [facility] MANUAL DIFFERENTIAL 2023-01-15 [facility] 07:23:00 [place] Liane olivier [facility] POC GLUCOSE SCREEN 2023-01-15 [facility] of 03:18:00 [place] Liane olivier [facility] POC GLUCOSE SCREEN 2023-01-15 [facility] of 00:17:00 [place] Liane olivier [facility] Center POC GLUCOSE SCREEN 2023-01-14 [facility] of 19:43:00 [place] [facility] POC GLUCOSE SCREEN 2023-01-14 [facility] of 14:54:00 [place] [facility] POC GLUCOSE SCREEN 2023-01-14 [facility] of 12:55:00 [place] [facility] BASIC METABOLIC PANEL, 2023-01-14 Ankit Locke [facility] rsity of CALCIUM TOTAL 08:31:00 [place] [facility] MAGNESIUM LEVEL 2023-01-14 Ankit Locke [place] f 08:31:00 [place] [facility] PHOSPHORUS LEVEL 2023-01-14 Ankit Locke [place] of 08:31:00 [place] [facility] COMPLETE BLOOD COUNT W/ 2023-01-14 Ankit Locke [facility] ersity of DIFFERENTIAL 08:31:00 [place] [facility] GLUCOSE LEVEL 2023-01-14 Ankit Locke [place] f 08:31:00 [place] [facility] BLOOD UREA NITROGEN 2023-01-14 Ankit Locke [facility] ty of 08:31:00 [place] [facility] ELECTROLYTE PANEL 2023-01-14 Ankit Locke [place] of 08:31:00 [place] [facility] SERUM CREATININE 2023-01-14 Ankit Locke [place] of 08:31:00 [place] [facility] .GLOMERULAR FILTRATION RATE 2023-01-14 Ankit Locke [place] of 08:31:00 [place] [facility] CALCIUM LEVEL TOTAL 2023-01-14 Ankit Locke [facility] of 08:31:00 [place] [facility] Results CBC 2023-01-14 Ankit Locke [place] f 08:31:00 [place] [facility] MANUAL DIFFERENTIAL 2023-01-14 Ankit Locke [facility] of 08:31:00 [place] [facility] POC GLUCOSE SCREEN 2023-01-14 [facility] of 03:05:00 [place] [facility] POC GLUCOSE SCREEN 2023-01-13 [facility] of 23:08:00 [place] [facility] POC GLUCOSE SCREEN 2023-01-13 [facility] of 18:04:00 [place] [facility] POC GLUCOSE SCREEN 2023-01-13 [facility] of 16:39:00 [place] [facility] POC GLUCOSE SCREEN 2023-01-13 [facility] of 14:36:00 [place] [facility] POC GLUCOSE SCREEN 2023-01-13 [facility] of 12:31:00 [place] [facility] BASIC METABOLIC PANEL, 2023-01-13 Ankit Locke [facility] rsity of CALCIUM TOTAL 07:55:00 [place] [facility] MAGNESIUM LEVEL 2023-01-13 Ankit Locke [place] f 07:55:00 [place] [facility] PHOSPHORUS LEVEL 2023-01-13 Ankit Locke [place] of 07:55:00 [place] [facility] COMPLETE BLOOD COUNT W/ 2023-01-13 Ankit Locke [facility] ersity of DIFFERENTIAL 07:55:00 [place] [facility] GLUCOSE LEVEL 2023-01-[address] [facility] 07:55:00 [place] [facility] BLOOD UREA NITROGEN 2023-01-[address] [facility] 07:55:00 [place] [facility] ELECTROLYTE PANEL 2023-01-[address] [facility] 07:55:00 [place] [facility] SERUM CREATININE 2023-01-[address] [facility] 07:55:00 [place] [facility] .GLOMERULAR FILTRATION RATE 2023-01-13 Irina [place] Uni versity of 07:55:00 [place] [facility] CALCIUM LEVEL TOTAL 2023-01-[address] [facility] 07:55:00 [place] [facility] Results CBC 2023-01-[address] [facility] 07:55:00 [place] [facility] MANUAL DIFFERENTIAL 2023-01-13 Irina Houston [place] of 07:55:00 [place] [facility] POC GLUCOSE SCREEN 2023-01-13 [facility] of 03:31:00 [place] [facility] Center POC GLUCOSE SCREEN 2023-01-13 [facility] of 00:05:00 [place] [facility] POC GLUCOSE SCREEN 2023-01-12 [facility] of 18:51:00 [place] [facility] POC GLUCOSE SCREEN 2023-01-12 [facility] of 18:00:00 [place] [facility] POC GLUCOSE SCREEN 2023-01-12 [facility] of 14:16:00 [place] [facility] POC [facility]CO[facility] SCREEN 2023[facility]01-[facility] 12:55:00 [place] [facility] POC GLUCOSE SCREEN 2023-01-12 [facility] of 10:59:00 [facility] BASIC METABOLIC PANEL, 2023-01-12 [facility] CALCIUM TOTAL 08:03:00 [facility] MAGNESIUM LEVEL 2023-01-12 Ankit Locke [place] f 08:03:00 [place] [facility] PHOSPHORUS LEVEL 2023-01-12 Ankit Locke [place] of 08:03:00 [facility] COMPLETE BLOOD COUNT W/ 2023-01-12 Ankit Locke [facility] ersity of DIFFERENTIAL 08:03:00 [place] [facility] GLUCOSE LEVEL 2023-01-12 Irina Houston [place] of 08:03:00 [place] [facility] BLOOD UREA NITROGEN 2023-01-12 Irina Houston [place] of 08:03:00 [place] [facility] ELECTROLYTE PANEL 2023-01-12 Irina Houston [place] of 08:03:00 [place] [facility] SERUM CREATININE 2023-01-12 Irina Houston [place] of 08:03:00 [facility] .GLOMERULAR FILTRATION RATE 2023-01-12 Irina [place] Uni vers[facility] of 08:03:00 [place] [facility] CALCIUM LEVEL TOTAL 2023-01-12 Irina Houston [place] of 08:03:00 [place] [facility] Center Results CBC 2023-01-12 Irina Houston [place] of 08:03:00 [place] [facility] MANUAL DIFFERENTIAL 2023-01-12 Irina Houston [place] of 08:03:00 [place] [facility] POC GLUCOSE SCREEN 2023-01-12 Roberto Carlos Walsh [place] of 06:58:00 [place] [facility] COVID-19 (SARS-COV-2) PCR - 2023-01-12 Nguyen Barcenas [facility] of ASYMPTOMATIC - LT 03:25:00 [place] [facility] XR KNEE 1 OR 2 VW RIGHT 2023-01-12 Nguyen Barcenas Unive rsity of 03:22:08 [place] [facility] POC GLUCOSE SCREEN 2023-01-12 Roberto Carlos Walsh [place] of 01:37:00 [place] [facility] CT HEAD WO CONTRAST 2023-01-11 Nguyen Barcenas [facility] of 23:29:12 [place] [facility] COMPLETE BLOOD COUNT W/ 2023-01-11 Nguyen Barcenas Unive rsity of DIFFERENTIAL 21:11:00 [place] [facility] COMPREHENSIVE METABOLIC PANEL 2023-01-[address] [facility] 21:11:00 [place] [facility] MAGNESIUM LEVEL 2023-01-[address] [facility] 21:11:00 [place] [facility] PHOSPHORUS LEVEL 2023-01-11 Nguyen Barcenas [facility] o f 21:11:00 [place] [facility] PROTHROMBIN TIME 2023-01-11 Nguyen Barcenas [facility] o f 21:11:00 [place] [facility] APTT 2023-01-11 Nguyen Barcenas [facility] of 21:11:00 [place] [facility] Results CBC 2023-01-11 Nguyen Barcenas [facility] of 21:11:00 [place] [facility] MANUAL DIFFERENTIAL 2023-01-11 Nguyen Barcenas [facility] of 21:11:00 [place] [facility] GLUCOSE LEVEL 2023-01-11 Nguyen Barcenas [facility] of 21:11:00 [place] [facility] BLOOD UREA NITROGEN 2023-01-11 Nguyen Barcenas [facility] of 21:11:00 [place] [facility] ELECTROLYTE PANEL 2023-01-11 Nguyen Barcenas [facility] of 21:11:00 [facility] SERUM CREATININE 2023-01-11 Nguyen Barcenas [facility] o f 21:11:00 [facility] .GLOMERULAR FILTRATION RATE 2023-01-11 Nguyen Barcenas [facility] of 21:11:00 [facility] CALCIUM LEVEL TOTAL 2023-01-11 Nguyen Barcenas [facility] of 21:11:00 [place] [facility] ALBUMIN LEVEL 2023-01-11 Nguyen Barcenas [facility] of 21:11:00 [facility] ALKALINE PHOSPHATASE 2023-01-11 Nguyen Barcenas Universi ty of 21:11:00 [place] [facility] ALANINE AMINOTRANSFERASE 2023-01-11 Nguyen Barcenas Univ ersity of 21:11:00 [place] [facility] ASPARTATE AMINOTRANSFERASE 2023-01-11 Nguyen Barcenas Un iversity of 21:11:00 [place] [facility] TOTAL PROTEIN 2023-01-11 Nguyen Barcenas [facility] of 21:11:00 [facility] FRACTIONATED BILIRUBIN 2023-01-11 Nguyen Barcenas Univer sity of 21:11:00 [facility] COMPREHENSIVE METABOLIC PANEL 2023-01-07 Lorena Hdez University of 14:28:23 [facility] COMPLETE BLOOD COUNT W/ 2023-01-07 Lorena Hdez Uni versity of DIFFERENTIAL 14:28:23 [facility] MAGNESIUM LEVEL 2023-01-07 [facility] 14:28:23 [place] [facility] PHOSPHORUS LEVEL 2023-01-07 [facility] of 14:28:23 [place] [facility] GLUCOSE LEVEL 2023-01-07 Lorena Hdez [place] of 14:28:23 [place] [facility] BLOOD UREA NITROGEN 2023-01-07 Lorena Hdez [facility] ity of 14:28:23 [place] [facility] ELECTROLYTE PANEL 2023-01-07 [facility] 14:28:23 [place] [facility] SERUM CREATININE 2023-01-07 [facility] of 14:28:23 [place] [facility] .GLOMERULAR FILTRATION RATE 2023-01-07 Lorena Hdez [place] of 14:28:23 [place] [facility] CALCIUM LEVEL TOTAL 2023-01-07 [facility] 14:28:23 [place] [facility] ALBUMIN LEVEL 2023-01-07 [facility] 14:28:23 [place] [facility] ALKALINE PHOSPHATASE 2023-01-07 Lorena Hdez [facility] sity of 14:28:23 [place] [facility] ALANINE AMINOTRANSFERASE 2023-01-07 Lorena Hdez iversity of 14:28:23 Bere GRIFFIN [facility] ASPARTATE AMINOTRANSFERASE 2023-01-07 [facility] of 14:28:23 [place] [facility] TOTAL PROTEIN 2023-01-07 [facility] of 14:28:23 [place] [facility] FRACTIONATED BILIRUBIN 2023-01-07 [facility] 14:28:23 [place] [facility] Results CBC 2023-01-07 Lorena Hdez [place] of 14:28:23 [place] [facility] MANUAL DIFFERENTIAL 2023-01-07 Lorena Hdze [facility] ity of 14:28:23 [place] [facility] COMPREHENSIVE METABOLIC PANEL 2023-01-01 Lorena Hdez [facility] of 14:26:43 [place] [facility] COMPLETE BLOOD COUNT W/ 2023-01-01 Lorena Hdez [facility] versity of DIFFERENTIAL 14:26:43 [place] [facility] MAGNESIUM LEVEL 2023-01-01 Lorena Hdez [place] of 14:26:43 [place] [facility] PHOSPHORUS LEVEL 2023-01-01 Lorena Hdez [place] of 14:26:43 [place] [facility] GLUCOSE LEVEL 2023-01-01 [facility] 14:26:43 [place] [facility] BLOOD UREA NITROGEN 2023-01-01 Lorena Hdez [facility] ity of 14:26:43 [place] [facility] ELECTROLYTE PANEL 2023-01-01 [facility] 14:26:43 [place] [facility] SERUM CREATININE 2023-01-01 Lorena Hdez [place] of 14:26:43 [place] [facility] .GLOMERULAR FILTRATION RATE 2023-01-01 [facility] 14:26:43 Bere GRIFFIN [facility] CALCIUM LEVEL TOTAL 2023-01-01 Lorena Hdez [facility] ity of 14:26:43 [place] [facility] ALBUMIN LEVEL 2023-01-01 Lorena Hdez [place] of 14:26:43 Bere [facility]RIFFIN [facility] ALKALINE PHOSPHATASE 2023-01-01 [facility] 14:26:43 Bere GRIFFIN [facility] ALANINE AMINOTRANSFERASE 2023-01-01 Lorena Hdez iversity of 14:26:43 Bere GRIFFIN [facility] ASPARTATE AMINOTRANSFERASE 2023-01-01 Lorena Hdez [place] of 14:26:43 [place] [facility] TOTAL PROTEIN 2023-01-01 Lorena Hdez [place] of 14:26:43 [place] [facility] FRACTIONATED BILIRUBIN 2023-01-01 Lorena Hdez [facility] ersity of 14:26:43 [place] MD [facility] Results CBC 2023-01-01 Lorena Hdez [place] of 14:26:43 [place] Liane olivier [facility] MANUAL DIFFERENTIAL 2023-01-01 Lorena Hdez [facility] ity of 14:26:43 [place] Liane olivier [facility] LEE VISUAL FIELD, 2022-12-29 Suzanne Mcgrath ity of INTERMEDIATE - OU - BOTH EYES 16:51:16 Dereck astudillo MD [facility] OCT, OPTIC NERVE - OU - BOTH 2022-12-29 Suzanne Mcgrath niversity of EYES 16:43:49 [place] [facility] OCT, RETINA - OU - BOTH EYES 2022-12-29 Suzanne Mcgrath niversity of 16:43:47 [place] [facility] COMPREHENSIVE METABOLIC PANEL 2022-12-24 Lorena Hdez [facility] of 15:16:00 [place] [facility] COMPLETE BLOOD COUNT W/ 2022-12-24 Lorena Hdez [facility] versity of DIFFERENTIAL 15:16:00 [place] MD [facility] MAGNESIUM LEVEL 2022-12-24 [facility] of 15:16:00 [place] [facility] PHOSPHORUS LEVEL 2022-12-24 Lorena Hdez [place] of 15:16:00 [place] [facility] soy [facility] GLUCOSE LEVEL 2022-12-24 [facility] of 15:16:00 [place] [facility] BLOOD UREA NITROGEN 2022-12-24 Lorena Hdez [facility] ity of 15:16:00 [place] [facility] ELECTROLYTE PANEL 2022-12-24 [facility] 15:16:00 [place] [facility] SERUM CREATININE 2022-12-24 Lorena Hdez [place] of 15:16:00 [place] [facility] .GLOMERULAR FILTRATION RATE 2022-12-24 Lorena Hdez [place] of 15:16:00 [place] [facility] soy [facility] CALCIUM LEVEL TOTAL 2022-12-24 Lorena Hdez [facility] ity of 15:16:00 [place] [facility] ALBUMIN LEVEL 2022-12-24 [facility] 15:16:00 [place] [facility] ALKALINE PHOSPHATASE 2022-12-24 Lorena Hdez [facility] sity of 15:16:00 [place] [facility] ALANINE AMINOTRANSFERASE 2022-12-24 Lorena Hdez iversity of 15:16:00 [place] [facility] ASPARTATE AMINOTRANSFERASE 2022-12-24 Lorena Hdez [facility] of 15:16:00 [place] [facility] TOTAL PROTEIN 2022-12-24 Lemuel [facility] of 15:16:00 [place] [facility] FRACTIONATED BILIRUBIN 2022-12-24 [facility] of 15:16:00 [place] [facility] Results CBC 2022-12-24 [facility] of 15:16:00 [place] [facility] MANUAL DIFFERENTIAL 2022-12-24 [facility] of 15:16:00 [place] [facility] COVID-19 (SARS-COV-2) PCR - 2022-12-23 [facility] - 18:01:00 [place] Ruelas [facility] POC GLUCOSE SCREEN 2022-12-16 [facility] of 00:07:00 [place] [facility] POC GLUCOSE SCREEN 2022-12-15 [facility] of 18:52:00 [place] [facility] OCT, OPTIC NERVE - OU - BOTH 2022-12-15 Fareed Davis Uni versity of EYES 16:37:29 [place] [facility] OCT, RETINA - OU - BOTH EYES 2022-12-15 Fareed Davis Uni versity of 16:37:23 [place] [facility] FUNDUS PHOTOS - OU - BOTH 2022-12-15 Fareed Daviser sity of EYES 16:37:12 [place] [facility] 3D DENTAL IMAGING (ICAT) 2022-12-15 Wilder Soliz [facility] ity of 14:42:55 [place] [facility] POC GLUCOSE SCREEN 2022-12-15 Karen Ordaz [place] of 13:19:00 [place] Liane olivier [facility] POC GLUCOSE SCREEN 2022-12-15 Ordaz, [facility] of 12:12:00 [place] [facility] soy [facility] BASIC METABOLIC PANEL, 2022-12-15 [facility] CALCIUM TOTAL 09:44:00 [place] Liane olivier [facility] MAGNESIUM LEVEL 2022-12-15 Mana Powers [place] of 09:44:00 [place] [facility] [facility] PHOSPHORUS LEVEL 2022-12-15 Mana Powers [place] of 09:44:00 [place] [facility] COMPLETE BLOOD COUNT W/ 2022-12-15 Mana Powers ty of DIFFERENTIAL 09:44:00 [place] [facility] soy [facility] GLUCOSE LEVEL 2022-12-15 Mana Powers [place] of 09:44:00 [facility] BLOOD UREA NITROGEN 2022-12-15 Mana Powers [place] o f 09:44:00 [place] [facility] ELECTROLYTE PANEL 2022-12-15 Mana Powers [place] of 09:44:00 [facility] SERUM CREATININE 2022-12-15 Mana Powers [place] of 09:44:00 [facility] .GLOMERULAR FILTRATION RATE 2022-12-15 Mana Powers [facility] ersity of 09:44:00 [place] [facility] CALCIUM LEVEL TOTAL 2022-12-15 Mana Powers o f 09:44:00 [place] MD Liane olivier [facility] Results CBC 2022-12-15 Mana Powers [place] of 09:44:00 [place] MD Liane olivier [facility] MANUAL DIFFERENTIAL 2022-12-15 Mana Powers o f 09:44:00 [place] MD Carreon soy [facility] POC GLUCOSE SCREEN 2022-12-15 [facility] 08:28[facility]00 [place] Liane olivier [facility] POC GLUCOSE SCREEN 2022-12-15 [facility] of 04:04:00 [place] MD Liane olivier [facility] POC GLUCOSE SCREEN 2022-12-14 Koom-Dadzie, [facility] of 23:26:00 [place] [facility] POC GLUCOSE SCREEN 2022-12-14 [facility] of 22:14:00 [place] [facility] FL MODIFIED BARIUM SWALLOW W 2022-12-14 ChristinaTrista BoyleAd[facility] of SPEECH 20:37:56 [facility] POC GLUCOSE SCREEN 2022-12-14 ChristinaTrista [facility] of 18:08:00 [facility] GENERAL LABORATORY ADD ON 2022-12-14 Travis Lopez [facility] versity of TEST 14:03:00 [facility] POC GLUCOSE SCREEN 2022-12-14 Trvais Lopez [place] of 13:25:00 [facility] POC GLUCOSE SCREEN 2022-12-14 Derrick Pérez [facility] ty of 11:55:00 [facility] BASIC METABOLIC PANEL, 2022-12-14 Mana Powers [facility] of CALCIUM TOTAL 10:46:00 [facility] MAGNESIUM LEVEL 2022-12-14 Mana Powers [place] of 10:46:00 [facility] PHOSPHORUS LEVEL 2022-12-14 Mana Powers [place] of 10:46:00 [facility] COMPLETE BLOOD COUNT W/ 2022-12-14 Mana Powers ty of DIFFERENTIAL 10:46:00 [facility] GLUCOSE LEVEL 2022-12-14 Mana Powers [place] of 10:46:00 [facility] BLOOD UREA NITROGEN 2022-12-14 Mana Powers [place] o f 10:46:00 [facility] ELECTROLYTE PANEL 2022-12-14 Mana Powers [place] of 10:46:00 [facility] SERUM CREATININE 2022-12-14 Mana Powers [place] of 10:46:00 [facility] .GLOMERULAR FILTRATION RATE 2022-12-14 Mana Powers Univ ersity of 10:46:00 [facility] CALCIUM LEVEL TOTAL 2022-12-14 [facility] o f 10:46:00 [place] MD Liane olivier [facility] [place] Results CBC 2022-12-14 [facility] of 10:46:00 [place] [facility] Liane [facility] MANUAL DIFFERENTIAL 2022-12-14 [facility] o f 10:46:00 [place] Liane olivier [facility] ALBUMIN LEVEL 2022-12-14 Jessica [facility] of 10:46:00 [place] Liane olivier [facility] ALKALINE PHOSPHATASE 2022-12-14 Jessica [facility] of 10:46:00 [place] Liane olivier [facility] ALANINE AMINOTRANSFERASE 2022-12-[address] [facility] ersity of 10:46:00 [place] Liane olivier [facility] Center ASPARTATE AMINOTRANSFERASE 2022-12-14 Jessica [facility] iversity of 10:46:00 [place] Liane olivier [facility] TOTAL PROTEIN 2022-12-14 Jessica [facility] of 10:46:00 [place] MD Liane olivier [facility] FRACTIONATED BILIRUBIN 2022-12-14 Jessica [facility] sity of 10:46:00 [place] Liane ol[facility]ier [facility] POC GLUCOSE SCREEN 2022-12-14 [facility] of 07:36:00 [place] [facility] Liane [facility] POC GLUCOSE SCREEN 2022-12-14 [facility] of 03:56:00 [place] Liane [facility]ier [facility] POC GLUCOSE SCREEN 2022-12-14 [facility] of 00:31:00 [place] Liane [facility]ier [facility] POC GLUCOSE SCREEN 2022-12-13 Jessica [facility] of 19:24:00 [place] Liane olivier [facility] POC GLUCOSE SCREEN 2022-12-13 [facility] of 14:02:00 [place] Liane ol[facility]ier [facility] POC GLUCOSE SCREEN 2022-12-13 [facility] of 11:58:00 [place] Liane [facility]ier [facility] POC GLUCOSE SCREEN 2022-12-13 Jessica [facility] of 09:24:00 [place] Liane olivier [facility] BASIC METABOLIC PANEL, 2022-12-13 [facility] CALCIUM TOTAL 09:12:00 [place] Liane olivier [facility] MAGNESIUM LEVEL 2022-12-13 Mana oPwers [place] of 09:12:00 [place] [facility] PHOSPHORUS LEVEL 2022-12-13 Mana Powers [place] of 09:12:00 [facility] COMPLETE BLOOD COUNT W/ 2022-12-13 Mana Powers [facility] ty of DIFFERENTIAL 09:12:00 [facility] GLUCOSE LEVEL 2022-12-13 [facility] of 09:12:00 [facility] BLOOD UREA NITROGEN 2022-12-13 [facility] o f 09:12:00 [facility] ELECTROLYTE PANEL 2022-12-13 Mana Powers [place] of 09:12:00 [facility] SERUM CREATININE 2022-12-13 Mana Powers [place] of 09:12:00 [facility] .GLOMERULAR FILTRATION RATE 2022-12-13 Mana Powers [facility] ersity of 09:12:00 [facility] CALCIUM LEVEL TOTAL 2022-12-13 GioMana [place] o f 09:12:00 [place] [facility] Results CBC 2022-12-13 Mana Powers [place] of 09:12:00 [place] [facility] Hospital[facility] ol[facility] MANUAL DIFFERENTIAL 2022-12-13 GioMana [place] o f 09:12:00 [place] MD Liane olivier [facility] POC GLUCOSE SCREEN 2022-12-13 Travis Lopez [place] of 03:43:00 [place] MD Liane olivier [facility] POC GLUCOSE SCREEN 2022-12-13 Travis Lopez [place] of 00:16:00 [place] MD Liane olivier [facility] POC GLUCOSE SCREEN 2022-12-12 Travis Lopez [place] of 18:52:00 [place] MD Liane olivier [facility] POC GLUCOSE SCREEN 2022-12-12 [facility] of 13:47:00 [place] [facility] POC GLUCOSE SCREEN 2022-12-12 Travis Lopez [place] of 11:52:00 [facility] BASIC METABOLIC PANEL, 2022-12-12 Mana Powers [facility] y of CALCIUM TOTAL 10:30:00 [facility] MAGNESIUM LEVEL 2022-12-12 Mana Powers [place] of 10:30:00 [facility] PHOSPHORUS LEVEL 2022-12-12 Mana Powers [place] of 10:30:00 [facility] COMPLETE BLOOD COUNT W/ 2022-12-12 Mana Powers [facility] ty of DIFFERENTIAL 10:30:00 [facility] GLUCOSE LEVEL 2022-12-12 Mana Powers [place] of 10:30:00 [facility] BLOOD UREA NITROGEN 2022-12-12 Mana Powers [place] o f 10:30:00 [facility] ELECTROLYTE PANEL 2022-12-12 Mana Powers [place] of 10:30:00 [facility] SERUM CREATININE 2022-12-12 Mana Powers [place] of 10:30:00 [facility] .GLOMERULAR FILTRATION RATE 2022-12-12 Mana Powers [facility] ersity of 10:30:00 [facility] CALCIUM LEVEL TOTAL 2022-12-12 Mana Powers [place] o f 10:30:00 [facility] Results CBC 2022-12-12 Mana Powers [place] of 10:30:00 [facility] MANUAL DIFFERENTIAL 2022-12-12 Mana Powers [place] o f 10:30:00 [facility] POC GLUCOSE SCREEN 2022-12-12 Travis Lopez [place] of 08:06:00 [facility] POC GLUCOSE SCREEN 2022-12-12 Travis Lopez [place] of 04:01:00 [facility] LACTIC ACID, VENOUS 2022-12-12 Travis Lopez [facility] y of 03:50:00 [place] [facility] VENOUS BLOOD GAS 2022-12-12 [facility] o f 00:21:00 [place] [facility] LIPASE LEVEL 2022-12-12 [facility] of 00:21:00 [place] [facility] Hospital[facility] olivier [facility] POC GLUCOSE SCREEN 2022-12-12 [facility] of 00:10:00 [facility] GENERAL LABORATORY ADD ON 2022-12-11 [facility] versity of TEST 23:39:00 [place] [facility] KETONE BODIES QUALITATIVE 2022-12-11 Waleska Salinas Unive rsity of 23:19:00 [facility] POC GLUCOSE SCREEN 2022-12-11 [facility] of 22:51:00 [facility] LACTIC ACID, VENOUS 2022-12-11 [facility] Hospitalit y of 22:33:00 [place] MD Rob [facility] ELECTROLYTE PANEL 2022-12-11 Waleska Salinas [place] of 22:33:00 [facility] LIPASE LEVEL 2022-12-11 Waleska Salinas [place] of 22:33:00 [place] [facility] POC CRITICAL 2022-12-11 [facility] HospitalpatricAlleg[facility] of 21:34:00 [place] [facility] POC GLUCOSE SCREEN 2022-12-11 CoreySanta Ynez Valley Cottage HospitaljulesReplaced By [facility] of 21:34:00 [place] [facility] POC CRITICAL 2022-12-11 [facility] of 20:33:00 [place] [facility] POC GLUCOSE SCREEN 2022-12-11 [facility] of 20:33:00 [place] [facility] POC GLUCOSE SCREEN 2022-12-11 [facility] of 18:35:00 [facility] POC GLUCOSE SCREEN 2022-12-11 CoreySanta Y[facility] Valley Cott[facility] HospitaljulesReplaced By [facility] of 14:14:00 [place] [facility] LACTIC ACID, VENOUS 2022-12-11 Shaye Powersi [place] o f 10:37:59 [facility] BASIC METABOLIC PANEL, 2022-12-11 Mana Powers [facility] y of CALCIUM TOTAL 10:30:00 [facility] MAGNESIUM LEVEL 2022-12-11 Mana Powers [place] of 10:30:00 [facility] PHOSPHORUS LEVEL 2022-12-11 Mana Powers [place] of 10:30:00 [facility] COMPLETE BLOOD COUNT W/ 2022-12-11 Mana Powers [facility] ty of DIFFERENTIAL 10:30:00 [facility] GLUCOSE LEVEL 2022-12-11 Irina Houston [place] of 10:30:00 [facility] BLOOD UREA NITROGEN 2022-12-11 Irina Houston [place] of 10:30:00 [facility] ELECTROLYTE PANEL 2022-12-[address] [facility] 10:30:00 [facility] SERUM CREATININE 2022-12-11 Irina Houston [place] of 10:30:00 [facility] .GLOMERULAR FILTRATION RATE 2022-12-11 Irina Houston Uni versity of 10:30:00 [facility] CALCIUM LEVEL TOTAL 2022-12-11 Irina Houston [place] of 10:30:00 [facility] Results CBC 2022-12-11 Irina Houston [place] of 10:30:00 [facility] MANUAL DIFFERENTIAL 2022-12-11 Irina Houston [place] of 10:30:00 [facility] POC GLUCOSE SCREEN 2022-12-11 [facility] of 07:20:00 Jaycee [facility] POC GLUCOSE SCREEN 2022-12-11 [facility] of 04:00:00 Jaycee [facility] POC GLUCOSE SCREEN 2022-12-11 [facility] of 00:29:00 Jaycee [facility] POC GLUCOSE SCREEN 2022-12-10 [facility] of 23:20:00 Jaycee [facility] CT HEAD WO CONTRAST 2022-12-10 [facility] o f 21:21:00 ArlenJasmina [facility] POC GLUCOSE SCREEN 2022-12-10 [facility] of 19:45:00 ArlenJasmina [facility] POC GLUCOSE SCREEN 2022-12-10 [facility] o f 17:35:00 [facility] POC GLUCOSE SCREEN 2022-12-10 Mer Milian [place] of 13:30:00 [facility] URINE CULTURE 2022-12-10 [facility] of 12:13:00 [facility] URINALYSIS WITH MICROSCOPIC 2022-12-10 shari [facility] ersity of IF INDICATED 12:13:00 [facility] BASIC METABOLIC PANEL, 2022-12-10 Mana Powersit y of CALCIUM TOTAL 11:13:00 [facility] MAGNESIUM LEVEL 2022-12-10 Mana Powers [place] of 11:13:00 [facility] PHOSPHORUS LEVEL 2022-12-10 Mana Powers [place] of 11:13:00 [facility] COMPLETE BLOOD COUNT W/ 2022-12-10 Mana Powers ty of DIFFERENTIAL 11:13:00 [facility] HEMOGLOBIN A1C 2022-12-10 Irina Houston [place] of 11:13:00 [facility] GLUCOSE LEVEL 2022-12-10 Irina Houston [place] of 11:13:00 [facility] BLOOD UREA NITROGEN 2022-12-10 Irina Houston [place] of 11:13:00 [facility] ELECTROLYTE PANEL 2022-12-10 Irina Houston [place] of 11:13:00 [facility] SERUM CREATININE 2022-12-10 Irina Houston [place] of 11:13:00 [facility] .GLOMERULAR FILTRATION RATE 2022-12-10 Irina Houston Uni versity of 11:13:00 [place] MD CarreonDr. [facility] CALCIUM LEVEL TOTAL 2022-12-10 Irina Houston [place] of 11:13:00 [place] [facility]issyDr[facility] Results CBC 2022-12-10 Irina Houston [place] of 11:13:00 [facility] MANUAL DIFFERENTIAL 2022-12-10 Irina Houston [place] of 11:13:00 [place] [facility]issyDr[facility] POC GLUCOSE SCREEN 2022-12-10 Mer Milian [place] of 07:38:00 [facility] POC GLUCOSE SCREEN 2022-12-10 Mer Milian [place] of 05:18:00 [facility] POC VENOUS BLOOD GAS + 2022-12-10 Roberto Carlos Walsh [facility] y of LACTATE 03:36:00 [facility] COVID-19 (SARS-COV-2) PCR - 2022-12-10 Roberto Carlos Walsh [facility] ersity of ASYMPTOMATIC - LT 00:01:00 [place] [facility] AMMONIA LEVEL 2022-12-10 Tanvi [facility] of 00:01:00 [facility] COMPLETE BLOOD COUNT W/ 2022-12-10 Tanvi [facility] ty of DIFFERENTIAL 00:01:00 [facility] COMPREHENSIVE METABOLIC PANEL 2022-12-10 Tammy Mike iversity of 00:01:00 [facility] MAGNESIUM LEVEL 2022-12-10 Tanvi [facility] of 00:01:00 [facility] PHOSPHORUS LEVEL 2022-12-10 [facility] of 00:01:00 [facility] PROTHROMBIN TIME 2022-12-10 Tanvi [facility] of 00:01:00 [place] [facility] APTT 2022-12-10 Tanvi [facility] of 00:01:00 [facility] LACTATE DEHYDROGENASE 2022-12-10 Tanvi [facility] of 00:01:00 [facility] Results CBC 2022-12-10 Tanvi [facility] of 00:01:00 [place] MD Liane olivier [facility] MANUAL DIFFERENTIAL 2022-12-10 [facility] o f 00:01:00 [place] MD Rob [facility] GLUCOSE LEVEL 2022-12-10 [facility] of 00:01:00 [facility] BLOOD UREA NITROGEN 2022-12-10 [facility] o f 00:01:00 [place] [facility] soy [facility] ELECTROLYTE PANEL 2022-12-10 [facility] of 00:01:00 [facility] SERUM CREATININE 2022-12-10 [facility] of 00:01:00 [facility] .GLOMERULAR FILTRATION RATE 2022-12-10 [facility] ersity of 00:01:00 [facility] CALCIUM LEVEL TOTAL 2022-12-10 [facility] o f 00:01:00 [facility] ALBUMIN LEVEL 2022-12-10 [facility] of 00:01:00 [facility] ALKALINE PHOSPHATASE 2022-12-10 [facility] of 00:01:00 [facility] ALANINE AMINOTRANSFERASE 2022-12-10 [facility] ity of 00:01:00 [facility] ASPARTATE AMINOTRANSFERASE 2022-12-10 [facility] rsity of 00:01:00 [facility] TOTAL PROTEIN 2022-12-10 [facility] of 00:01:00 [place] [facility] FRACTIONATED BILIRUBIN 2022-12-10 [facility] of 00:01:00 [facility] HP MDA CHRISTINE MUTATION 2022-12-04 Lorena Hdez Uni versity of ANALYSIS PRECISION PANEL 16:56:00 [facility] D Bip[facility] HP SOLID TUMOR GENOMIC 2022-12-04 Lorena Hdez U niversity of ASSAY FUSIONS 2018 16:56:00 [place] MD Portillo rson INTERPRET[facility] HP MOLECULAR BLOOD COLLECTION 2022-12-04 Lorena Hdez [place] of 16:56:00 [place] MD Liane olivier [facility] MRI SKULL BASE WITH AND 2022-11-30 Lorena Hdez Uni versity of WITHOUT CONTRAST 17:12:54 Bere Carreon [facility] PETCT CONTRAST ENHANCED 2022-11-27 [facility] ty of INITIAL TREATMENT STRATEGY 21:57:06 Ashleigh Blackburn MD [facility] POC GLUCOSE SCREEN 2022-11-27 Replaced By [facility] of 19:06:00 Ashleigh [place] Rob [facility] POC GLUCOSE SCREEN 2022-11-27 Replaced By [facility] of 18:29:00 Ashleigh [place] [facility] MD NGS BLOOD CONTROL 2022-11-26 Lorena Hdez [facility] sity of 19:07:00 [place] [facility] COMPLETE BLOOD COUNT W/ 2022-11-26 Lorena Hdez Uni versity of DIFFERENTIAL 19:07:00 [place] MD Rob [facility] COMPREHENSIVE METABOLIC PANEL 2022-11-26 Lorena Hdez [facility] of 19:07:00 [place] MD Liane olivier [facility] FREE THYROXINE 2022-11-26 Lorena Hdez [facility] of 19:07:00 [facility] LACTATE DEHYDROGENASE 2022-11-26 [facility]dez [facility] of 19:07:00 [place] MD CarreonDr. [facility] MAGNESIUM LEVEL 2022-11-26 Lorena Hdez [place] of 19:07:00 [place] [facility]chrissyDr[facility] PHOSPHORUS LEVEL 2022-11-26 [facility]Houston [facility] of 19:07:00 [place] [facility]issyDr[facility] URIC ACID 2022-11-26 [facility]ore[facility] HdezHouston [facility] of 19:07:00 [facility] VITAMIN D 25 HYDROXY LEVEL 2022-11-26 Lorena HdezHouston [facility] of 19:07:00 [place] [facility] THYROID STIMULATING HORMONE 2022-11-26 Lorena HdezHouston [facility] of 19:07:00 [place] [facility] APTT 2022-11-26 Lorena Hdez [place] of 19:07:00 [place] [facility] n [facility] PROTHROMBIN TIME 2022-11-26 Lorena HdezHouston [facility] of 19:07:00 [place] Liane olivier [facility] Results CBC 2022-11-26 [facility] of 19:07:00 [place] MD Liane olivier [facility] MANUAL DIFFERENTIAL 2022-11-26 Lorena Hdez [facility] ity of 19:07:00 [place] MD CarreonDr[facility] GLUCOSE LEVEL 2022-11-26 Simona Hdezfer KaylaHouston Methodist West Hospital of 19:07:00 [place] MD Liane olivier [facility] BLOOD UREA NITROGEN 2022-11-26 Simona Hdezfer [facility] ity of 19:07:00 [place] [facility]issyDr[facility] ELECTROLYTE PANEL 2022-11-26 Simona Hdezfer KaylaMelbourne Regional Medical Centerit y of 19:07:00 [place] [facility]issyDr[facility] SERUM CREATININE 2022-11-26 Simona Hdezfer KaylaHouston [facility] of 19:07:00 [facility] .GLOMERULAR FILTRATION RATE 2022-11-26 Simona HdezAt[facility] of 19:07:00 [place] MD CarreonDr[facility] CALCIUM LEVEL TOTAL 2022-11-26 [facility]Mel[facility] ity of 19:07:00 [place] [facility]issyDr[facility] ALBUMIN LEVEL 2022-11-26 HdezSimonaLorenaAtrium Health [facility]burg of 19:07:00 [place] [facility]chrissyDr[facility] ALKALINE PHOSPHATASE 2022-11-26 [facility] sity of 19:07:00 [place] MD Liane olivier [facility] ALANINE AMINOTRANSFERASE 2022-11-26 Simona Hdezfer Kayla Un iversity of 19:07:00 [place] MD Liane olivier [facility] ASPARTATE AMINOTRANSFERASE 2022-11-26 Simona HdezAtrium Health [facility] of 19:07:00 [place] [facility]issyDr[facility] TOTAL PROTEIN 2022-11-26 HdezSimonaLorenaAtrium Health [place]burg of 19:07:00 [place] MD Liane olivier [facility] FRACTIONATED BILIRUBIN 2022-11-26 [facility]Sent[facility] ersity of 19:07:00 [place] [facility] ANA CRISTINA GRIFFIN NTRK1 FUSION ANALYSIS 2022-11-26 Simona HdezAtrium Health [facility] of MATERIAL REQUEST 18:43:02 [place] MD Carreon [facility] ANA CRISTINA GRIFFIN ALK MUTATION ANALAYSIS 2022-11-26 Lorena Hdez [facility] of MATERIAL REQUEST 18:43:02 Bere Carreon [facility] AP NTRK3 FUSION ANALYSIS 2022-11-26 Lorena Hdez [place] of MATERIAL REQUEST 18:43:02 [place] MD Carreon [facility] AP EGFR MUTATION MATERIAL 2022-11-26 Lorena Hdez [facility] of REQUEST 18:43:02 [place] [facility] AP ERBB2 MUTATION 2022-11-26 Lorena Hdez [facility] sity of ANALAYSIS MATERIAL REQUEST 18:43:02 [place] [facility] AP MTOR MATERIAL REQUEST 2022-11-26 [facility] 18:43:02 [place] [facility] ANA CRISTINA GRIFFIN PTEN MUTATION MATERIAL 2022-11-26 Lorena Hdez [facility] of REQUEST 18:43:02 [place] [facility] AP IHC PD-L1 MATERIAL REQUEST 2022-11-26 Lorena Hdez [facility] 18:43:02 [place] [facility] AP IHC HER2/MELISSA MATERIAL 2022-11-26 Lorena Hdez Un iversity of REQUEST 18:43:02 [place] [facility] HEPATITIS C VIRUS AB SCREEN 2022-11-17 Red Berman [place] of W/REFLEX HCV PCR 18:11:00 [place] MD Carreon [facility] COMPREHENSIVE METABOLIC PANEL 2022-11-[address] [facility] 18:11:00 [place] [facility] COMPLETE BLOOD COUNT W/ 2022-11-17 Red Berman [facility] ersity of DIFFERENTIAL 18:11:00 [place] [facility] APTT 2022-11-17 eRd Berman [place] o f 18:11:00 [place] [facility] PROTHROMBIN TIME 2022-11-17 Red Berman [place] of 18:11:00 [place] [facility] CORTISOL 2022-11-17 Red Berman [place] o f 18:11:00 [place] [facility] ADRENOCORTICOTROPIC HORMONE 2022-11-17 Red Berman [facility] of 18:11:00 [place] [facility] ESTRADIOL LEVEL 2022-11-17 [facility] o f 18:11:00 [place] [facility] TESTOSTERONE LEVEL 2022-11-17 [facility] 18:11:00 [place] [facility] FOLLICLE STIMULATING HORMONE 2022-11-17 Red [facility] of LEVEL 18:11:00 [place] [facility] LUTEINIZING HORMONE 2022-11-17 [facility] 18:11:00 [place] [facility] THYROID STIMULATING HORMONE 2022-11-17 Red Berman [facility] of 18:11:00 [place] [facility] FREE THYROXINE 2022-11-17 [facility] o f 18:11:00 [place] [facility] TOTAL T3 2022-11-17 Red Berman [facility] o f 18:11:00 [place] [facility] INSULIN LIKE GROWTH FACTOR 1 2022-11-17 Red B[facility] of 18:11:00 [place] [facility] PROLACTIN 2022-11-17 [facility] o f 18:11:00 [place] [facility] GLUCOSE LEVEL 2022-11-17 [facility] 18:11:00 [place] [facility] BLOOD UREA NITROGEN 2022-11-17 Red Berman [facility] ty of 18:11:00 [place] [facility] ELECTROLYTE PANEL 2022-11-17 Red B[facility] of 18:11:00 [place] [facility] SERUM CREATININE 2022-11-17 Red [facility] of 18:11:00 [place] [facility] .GLOMERULAR FILTRATION RATE 2022-11-17 Red [facility] of 18:11:00 [place] [facility] CALCIUM LEVEL TOTAL 2022-11-17 [facility] 18:11:00 [place] [facility] ALBUMIN LEVEL 2022-11-17 Red Berman [place] o f 18:11:00 [place] [facility] ALKALINE PHOSPHATASE 2022-11-17 Red Berman [facility] ity of 18:11:00 [place] [facility] ALANINE AMINOTRANSFERASE 2022-11-17 Red Berman Uni versity of 18:11:00 [place] [facility] ASPARTATE AMINOTRANSFERASE 2022-11-17 Red Berman [facility] n[facility] of 18:11:00 [place] [facility] TOTAL PROTEIN 2022-11-17 Red Berman [place] o f 18:11:00 [place] [facility] FRACTIONATED BILIRUBIN 2022-11-17 Red Berman Unive rsity of 18:11:00 [place] [facility] Results CBC 2022-11-17 Red Berman [place] o f 18:11:00 [place] [facility] MANUAL DIFFERENTIAL 2022-11-17 Red Berman Universi ty of 18:11:00 [place] [facility] PATHOLOGY OUTSIDE 2022-10-16 [facility] of INTERPRETATION 00:00:00 [place] [facility] FLU VACC ([id number]), 6 MO-64 2022-09-21 Nereida Vargas Un iversity of YRS, .5ML, IM, QUAD 15:41:00 [facility] (FLUCELVAX) Branch CT HEAD WO CONTRAST 2022-08-28 Jo [facility] o f 14:23:13 [facility] POCT MOLECULAR FLU 2022-08-25 Jo Blanche [place] of 15:55:00 [facility] FL UPPER GI INCLUDING 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 DIRECTOR 2022-07-28 [address] Almeida-Flakita [facility] 11:59:00 [facility] POCT-GLUCOSE METER 2022-01-[address] [facility] 13:43:00 [facility] REPORT OF PROCEDURE - 2022-01-09 Dewayne [facility]uevas [facility] URL 12:37:11 [facility] REPORT OF PROCEDURE - 2022-01-09 Dewayne [facility]uevas [facility] URL 12:36:24 [facility] TISSUE EXAM 2022-01-[address] [facility] 11:31:00 [facility] ESOPHAGEAL BALLOON 2022-01-[address] [facility] PROVOCATION STUDY 10:53:00 [facility] COLONOSCOPY, WITH POLYPECTOMY 2022-01-[address] [facility] 10:53:00 [facility] ENDOSCOPY, UPPER GI TRACT, 2022-01-[address] [facility] WITH BIOPSY 10:53:00 [facility] POCT-GLUCOSE METER 2022-01-[address] [facility] 09:59:00 [facility] SARS-COV2/RT-PCR (HS & REF 2022-01-[address] [facility] LABS) 07:55:00 [facility] MANOMETRY, ANORECTAL 2021-12-[address] [facility] 09:24:00 [facility] Sleeve resection of stomach 2017-09-01 Dillon Seay 00:00:00 Laparoscopic adjustable 2013-11-01 [facility] [place] gastric banding<sup>1</sup> 06:00:00 Removal of gastric band 2013-11-01 [facility] [place] 00:00:00 Abdominal hysterectomy 2011-11-01 [facility] [place] 00:00:00 [facility]00 Appendectomy 2009-11-01 [facility] [place] 00:00:00 Cholecystectomy 2009-11-01 [facility] [place] 00:00:00 Knee joint operation 2006-11-01 Yosis torres 06:00:00 Shoulder joint operations 2006-11-01 Maynor Tsang 06:00:00 section 1984-11-01 Yossi Montgomery n 00:00:00 Knee Surgery [facility] Procedure on Shoulder [facility] Practice Maintenance of Gastric Band [place] Gallbladder Surgery [facility] Appendectomy [facility] Plan of Care Planned Activity Planned Date Details Comments Source Future Scheduled 2032-01-10 Screening for malignant [facility] 00:00:00 neoplasm of colon Medical Ce [facility]ter (procedure) [code = 634386284] Future Scheduled 2032-01-10 Screening for malignant [facility] 00:00:00 neoplasm of colon Medical Ce [facility]ter (procedure) [code = 924472604] Future Scheduled 2032-01-10 Screening for malignant [facility] 00:00:00 neoplasm of colon Medical Ce [facility]ter (procedure) [code = 688078665] Future Scheduled 2032-01-10 Screening for malignant [facility] 00:00:00 neoplasm of colon Medical Ce [facility]ter (procedure) [code = 160598222] Future Scheduled 2032-01-10 Screening for malignant [facility] 00:00:00 neoplasm of colon Medical Ce [facility]ter (procedure) [code = 272603424] Future Scheduled 2032-01-10 Screening for malignant [facility] 00:00:00 neoplasm of colon Medical Ce [facility]ter (procedure) [code = 523517393] Future Scheduled 2032-01-10 Screening for malignant [facility] 00:00:00 neoplasm of colon Medical Ce nter (procedure) [code = 781175978] Future Scheduled 2032-01-10 Screening for malignant [facility] 00:00:00 neoplasm of colon Medical Ce [facility]ter (procedure) [code = 629999563] Future Scheduled 2032-01-10 Screening for malignant [facility] 00:00:00 neoplasm of colon Medical Ce nter (procedure) [code = 912882309] Future Scheduled 2032-01-10 Screening for malignant [facility] 00:00:00 neoplasm of colon Medical Ce nter (procedure) [code = 854942440] Future Scheduled 2032-01-10 Screening for malignant [facility] 00:00:00 neoplasm of colon Medical Ce [facility]ter (procedure) [code = 601182737] Future Scheduled 2032-01-10 Screening for malignant [facility] 00:00:00 neoplasm of colon Medical Ce [facility]ter (procedure) [code = 114842879] Future Scheduled 2032-01-10 Screening for malignant [facility] 00:00:00 neoplasm of colon Medical Ce nter (procedure) [code = 751713365] Future Scheduled 2032-01-10 Screening for malignant [facility] 00:00:00 neoplasm of colon Medical Ce nter (procedure) [code = 281537750] Future Scheduled 2032-01-10 Screening for malignant [facility] 00:00:00 neoplasm of colon Medical Ce nter (procedure) [code = 911186254] Future Scheduled 2032-01-10 Screening for malignant [facility] 00:00:00 neoplasm of colon Medical Ce [facility]ter (procedure) [code = 230784057] Future Scheduled 2032-01-10 Screening for malignant [facility] 00:00:00 neoplasm of colon Medical Ce [facility]ter (procedure) [code = 651551459] Future Scheduled 2032-01-10 Screening for malignant [facility] 00:00:00 neoplasm of colon Medical Ce [facility]ter (procedure) [code = 476265644] Future Scheduled 2032-01-10 Screening for malignant [facility] 00:00:00 neoplasm of colon Medical Ce [facility]ter (procedure) [code = 371109141] Future Scheduled 2032-01-10 Screening for malignant [facility] 00:00:00 neoplasm of colon Medical Ce [facility]ter (procedure) [code = 657393657] Future Scheduled 2032-01-10 Screening for malignant [facility] 00:00:00 neoplasm of colon Medical Ce [facility]ter (procedure) [code = 681922554] Future Scheduled 2032-01-10 Screening for malignant [facility] 00:00:00 neoplasm of colon Medical Ce [facility]ter (procedure) [code = 892116970] Future Scheduled 2032-01-10 Screening for malignant [facility] 00:00:00 neoplasm of colon Medical Ce nter (procedure) [code = 724273797] Future Scheduled 2032-01-10 Screening for malignant [facility] 00:00:00 neoplasm of colon Medical Ce nter (procedure) [code = 425738106] Future Scheduled 2032-01-10 Screening for malignant [facility] 00:00:00 neoplasm of colon Medical Ce nter (procedure) [code = 760151064] Future Scheduled 2032-01-10 Screening for malignant [facility] 00:00:00 neoplasm of colon Medical Ce [facility]ter (procedure) [code = 680304272] Future Scheduled 2032-01-10 Screening for malignant [facility] 00:00:00 neoplasm of colon Medical Ce nter (procedure) [code = 825255851] Future Scheduled 2032-01-10 Screening for malignant [facility] 00:00:00 neoplasm of colon Medical Ce nter (procedure) [code = 117796648] Future Scheduled 2032-01-10 Screening for malignant [facility] 00:00:00 neoplasm of colon Medical Ce nter (procedure) [code = 392199161] Future Scheduled 2032-01-10 Screening for malignant [facility] 00:00:00 neoplasm of colon Medical Ce nter (procedure) [code = 770214195] Future Scheduled 2032-01-10 Screening for malignant [facility] 00:00:00 neoplasm of colon Medical Ce nter (procedure) [code = 571805892] Future Scheduled 2032-01-10 Screening for malignant [facility] 00:00:00 neoplasm of colon Medical Ce nter (procedure) [code = 728859856] Future Scheduled 2032-01-10 Screening for malignant [facility] 00:00:00 neoplasm of colon Medical Ce nter (procedure) [code = 725821805] Future Scheduled 2032-01-10 Screening for malignant [facility] 00:00:00 neoplasm of colon Medical Ce nter (procedure) [code = 219645590] Future Scheduled 2032-01-10 Screening for malignant [facility] 00:00:00 neoplasm of colon Medical Ce nter (procedure) [code = 037070188] Future Scheduled 2032-01-10 Screening for malignant [facility] 00:00:00 neoplasm of colon Medical Ce nter (procedure) [code = 980714416] Future Scheduled 2032-01-10 Screening for malignant [facility] 00:00:00 neoplasm of colon Medical Ce nter (procedure) [code = 430049081] Future Scheduled 2032-01-10 Screening for malignant [facility] 00:00:00 neoplasm of colon Medical Ce [facility]ter (procedure) [code = 241814646] Future Scheduled 2032-01-10 Screening for malignant [facility] 00:00:00 neoplasm of colon Medical Ce nter (procedure) [code = 872399170] Future Scheduled 2032-01-10 Screening for malignant [facility] 00:00:00 neoplasm of colon Medical Ce [facility]ter (procedure) [code = 782658885] Future Scheduled 2023-07-02 Influenza Vaccine (#1) C [...] Medical Ce nter Vaccine (#1)] Future Scheduled 2023-06-29 COVID-19 Vaccination (4 [facility] Test 11:55:50 - Moderna risk series) [place] MD Voss [code = [facility] (4 - Moderna risk series)] Future Scheduled 2023-06-08 COVID-19 Vaccination (4 [facility] Test 16:26:02 - Moderna risk series) [place] Bipin [code = COVID-[facility] Vacc[facility] [...] [facility] 00:00:00 [code = 21848030] Medical Ce nter Future Scheduled 2012 Lipid panel (procedure) [facility] 00:00:00 [code = 24177753] Medical Ce nter Future Scheduled 2012 Lipid panel (procedure) [facility] 00:00:00 [code = 83460614] Medical Ce nter Future Scheduled 2012 Lipid panel (procedure) [facility] 00:00:00 [code = 39961962] Medical Ce nter Future Scheduled 2012 Lipid panel (procedure) [facility] 00:00:00 [code = 83511944] Medical Ce nter Future Scheduled 2012 Lipid panel (procedure) [facility] 00:00:00 [code = 86775278] Medical Ce nter Future Scheduled 2012 Lipid panel (procedure) [facility] 00:00:00 [code = 81373002] Medical Ce nter Future Scheduled 2012 Lipid panel (procedure) [facility] 00:00:00 [code = 16995505] Medical Ce nter Future Scheduled 2012 Lipid panel (procedure) [facility] 00:00:00 [code = 43973817] Medical Ce nter Future Scheduled 2012 Lipid panel (procedure) [facility] 00:00:00 [code = 61368860] Medical Ce nter Future Scheduled 2012 Lipid panel (procedure) [facility] 00:00:00 [code = 74009219] Medical Ce nter Future Scheduled 2012 Lipid panel (procedure) [facility] 00:00:00 [code = 19523005] Medical Ce nter Future Scheduled 2012 Lipid panel (procedure) [facility] 00:00:00 [code = 84432901] Medical Ce nter Future Scheduled 2012 Lipid panel (procedure) [facility] 00:00:00 [code = 32632749] Medical Ce nter Future Scheduled 2012 Lipid panel (procedure) [facility] 00:00:00 [code = 58928442] Medical Ce nter Future Scheduled 2012 Lipid panel (procedure) [facility] 00:00:00 [code = 14128852] Medical Ce nter Future Scheduled 2012 Lipid panel (procedure) [facility] 00:00:00 [code = 58689504] Medical Ce nter Future Scheduled 2012 Lipid panel (procedure) [facility] 00:00:00 [code = 59933995] Medical Ce nter Future Scheduled 2012 Lipid panel (procedure) [facility] 00:00:00 [code = 42825232] Medical Ce nter Future Scheduled 2012 Lipid panel (procedure) [facility] 00:00:00 [code = 43506790] Medical Ce nter Future Scheduled 2011-11-02 MEDICARE [...] cervix Medical C enter (procedure) [code = 602688231] Future Scheduled 1988 Screening for malignant [facility] 00:00:00 neoplasm of cervix Medical C enter (procedure) [code = 822592296] Future Scheduled 1988 Screening for malignant [facility] 00:00:00 neoplasm of cervix Medical C enter (procedure) [code = 873420214] Future Scheduled 1988 Screening for malignant [facility] 00:00:00 neoplasm of cervix Medical C enter (procedure) [code = 777539831] Future Scheduled 1988 Screening for malignant [facility] 00:00:00 neoplasm of cervix Medical C enter (procedure) [code = 295653816] Future Scheduled 1988 Screening for malignant [facility] 00:00:00 neoplasm of cervix Medical C enter (procedure) [code = 007207455] Future Scheduled 1988 Screening for malignant [facility] 00:00:00 neoplasm of cervix Medical C enter (procedure) [code = 704221440] Future Scheduled 1988 Screening for malignant [facility] 00:00:00 neoplasm of cervix Medical C enter (procedure) [code = 195803379] Future Scheduled 1988 Screening for malignant [facility] 00:00:00 neoplasm of cervix Medical C enter (procedure) [code = 638149114] Future Scheduled 1988 Screening for malignant [facility] 00:00:00 neoplasm of cervix Medical C enter (procedure) [code = 939628471] Future Scheduled 1988 Screening for malignant [facility] 00:00:00 neoplasm of cervix Medical C enter (procedure) [code = 703779443] Future Scheduled 1988 Screening for malignant [facility] 00:00:00 neoplasm of cervix Medical C enter (procedure) [code = 184827565] Future Scheduled 1988 Screening for malignant [facility] 00:00:00 neoplasm of cervix Medical C enter (procedure) [code = 384637004] Future Scheduled 1988 Screening for malignant [facility] 00:00:00 neoplasm of cervix Medical C enter (procedure) [code = 968703921] Future Scheduled 1988 Screening for malignant [facility] 00:00:00 neoplasm of cervix Medical C enter (procedure) [code = 308804427] Future Scheduled 1988 Screening for malignant [facility] 00:00:00 neoplasm of cervix Medical C enter (procedure) [code = 449363665] Future Scheduled 1988 Screening for malignant [facility] 00:00:00 neoplasm of cervix Medical C enter (procedure) [code = 975076964] Future Scheduled 1988 Screening for malignant [facility] 00:00:00 neoplasm of cervix Medical C enter (procedure) [code = 456878555] Future Scheduled 1988 Screening for malignant [facility] 00:00:00 neoplasm of cervix Medical C enter (procedure) [code = 434115884] Future Scheduled 1988 Screening for malignant [facility] 00:00:00 neoplasm of cervix Medical C enter (procedure) [code = 563739872] Future Scheduled 1986 DTAP/TDAP/TD VACCINES (1 [facility] [...] screening [facility] (procedure) [code = 282776479] Future Scheduled [address] [facility] virus screening [facility] (procedure) [code = 491198385] Future Scheduled [address] [facility] 00:00:00 virus screening [facility] (procedure) [code = 602207969] Future Scheduled [address] Human immunodeficiency [facility] 00:00:00 virus screening [facility] (procedure) [code = 214743065] Future Scheduled [address] Human immunodeficiency [facility] 00:00:00 virus screening [facility] (procedure) [code = 406675193] Future Scheduled [address] [facility] 00:00:00 virus screening [facility] (procedure) [code = 543318822] Future Scheduled 1967 Screening for malignant [facility] 00:00:00 neoplasm of breast Medical C enter (procedure) [code = 686235584] Future Scheduled 1967 CT Colonography (combo) [facility] 00:00:00 [code = CT Colonography [facility] (combo)] Future Scheduled 1967 Screening for malignant [facility] 00:00:00 neoplasm of colon Medical Ce nter (procedure) [code = 909478714] Future Scheduled 1967 Screening for malignant [facility] 00:00:00 neoplasm of colon Medical Ce nter (procedure) [code = 877501483] Future Scheduled 1967 Sigmoidoscopy [code [facility]] [facility] Cent[facility] Future Scheduled 1967 Screening for malignant [facility] 00:00:00 neoplasm of breast Medical C enter (procedure) [code = 981359212] Future Scheduled 1967 CT Colonography (combo) [facility] 00:00:00 [code = CT Colonography [facility] (combo)] Future Scheduled 1967 Screening for malignant [facility] 00:00:00 neoplasm of colon Medical Ce nter (procedure) [code = 510995611] Future Scheduled 1967 Screening for malignant [facility] 00:00:00 neoplasm of colon Medical Ce nter (procedure) [code = 555892451] Future Scheduled 1967 Sigmoidoscopy [facility]code [facility]] [facility] Cent[facility] Future Scheduled 1967 Screening for malignant [facility] 00:00:00 neoplasm of breast Medical C enter (procedure) [code = 560173828] Future Scheduled 1967 CT Colonography (combo) [facility] 00:00:00 [code = CT Colonography [facility] (combo)] Future Scheduled 1967 Screening for malignant [facility] 00:00:00 neoplasm of colon Medical Ce nter (procedure) [code = 791588636] Future Scheduled 1967 Screening for malignant [facility] 00:00:00 neoplasm of colon Medical Ce nter (procedure) [code = 839499844] Future Scheduled 1967 Sigmoidoscopy [facility]code = [facility]] [facility] Cent[facility] Future Scheduled 1967 Screening for malignant [facility] 00:00:00 neoplasm of breast Medical C enter (procedure) [code = 016216983] Future Scheduled 1967 CT Colonography (combo) [facility] 00:00:00 [code = CT Colonography [facility] (combo)] Future Scheduled 1967 Screening for malignant [facility] 00:00:00 neoplasm of colon Medical Ce nter (procedure) [code = 107927025] Future Scheduled 1967 Screening for malignant [facility] 00:00:00 neoplasm of colon Medical Ce nter (procedure) [code = 057871458] Future Scheduled 1967 Sigmoidoscopy [facility]code [facility]] Medical Cent[facility] r Future Scheduled 1967 Screening for malignant [facility] 00:00:00 neoplasm of breast Medical C enter (procedure) [code = 539059925] Future Scheduled 1967 CT Colonography (combo) [facility] 00:00:00 [code = CT Colonography [facility] (combo)] Future Scheduled 1967 Screening for malignant [facility] 00:00:00 neoplasm of colon Medical Ce nter (procedure) [code = 783448465] Future Scheduled 1967 Screening for malignant [facility] 00:00:00 neoplasm of colon Medical Ce nter (procedure) [code = 996684558] Future Scheduled 1967 Sigmoidoscopy [code [facility]] Medical Cent[facility] r Future Scheduled 1967 Screening for malignant [facility] 00:00:00 neoplasm of breast Medical C enter (procedure) [code = 174923770] Future Scheduled 1967 CT Colonography (combo) [facility] 00:00:00 [code = CT Colonography [facility] (combo)] Future Scheduled 1967 Screening for malignant [facility] 00:00:00 neoplasm of colon Medical Ce nter (procedure) [code = 903676074] Future Scheduled 1967 Screening for malignant [facility] 00:00:00 neoplasm of colon Medical Ce nter (procedure) [code = 816502374] Future Scheduled 1967 Sigmoidoscopy [facility] 1967 Screening for malignant [facility] 00:00:00 neoplasm of breast Medical C enter (procedure) [code = 456481650] Future Scheduled 1967 CT Colonography (combo) [facility] 00:00:00 [code = CT Colonography [facility] (combo)] Future Scheduled 1967 Screening for malignant [facility] 00:00:00 neoplasm of colon Medical Ce nter (procedure) [code = 824242295] Future Scheduled 1967 Screening for malignant [facility] 00:00:00 neoplasm of colon Medical Ce nter (procedure) [code = 571524254] Future Scheduled 1967 Sigmoidoscopy [facility]code = [facility] 1967 Screening for malignant [facility] 00:00:00 neoplasm of breast Medical C enter (procedure) [code = 988063665] Future Scheduled 1967 CT Colonography (combo) [facility] 00:00:00 [code = CT Colonography [facility] (combo)] Future Scheduled 1967 Screening for malignant [facility] 00:00:00 neoplasm of colon Medical Ce nter (procedure) [code = 860453450] Future Scheduled 1967 Screening for malignant [facility] 00:00:00 neoplasm of colon Medical Ce nter (procedure) [code = 243452778] Future Scheduled 1967 Sigmoidoscopy [facility]00 [facility]] [facility] Screening for malignant [facility] 00:00:00 neoplasm of breast Medical C enter (procedure) [code = 039479012] Future Scheduled 1967 CT Colonography (combo) [facility] 00:00:00 [code = CT Colonography [facility] (combo)] Future Scheduled 1967 Screening for malignant [facility] 00:00:00 neoplasm of colon Medical Ce nter (procedure) [code = 760011778] Future Scheduled 1967 Screening for malignant [facility] 00:00:00 neoplasm of colon Medical Ce nter (procedure) [code = 568684702] Future Scheduled 1967 Sigmoidoscopy [code = [facility]] Medical Cente r Future Scheduled 1967 Screening for malignant [facility] 00:00:00 neoplasm of breast Medical C enter (procedure) [code = 793036140] Future Scheduled 1967 CT Colonography (combo) [facility] 00:00:00 [code = CT Colonography [facility] (combo)] Future Scheduled 1967 Screening for malignant [facility] 00:00:00 neoplasm of colon Medical Ce nter (procedure) [code = 446274261] Future Scheduled 1967 Screening for malignant [facility] 00:00:00 neoplasm of colon Medical Ce nter (procedure) [code = 432813732] Future Scheduled 1967 Sigmoidoscopy [code = [facility] Sigmoidoscopy] Medical Cente r Future Scheduled 1967 Screening for malignant [facility] 00:00:00 neoplasm of breast Medical C enter (procedure) [code = 908860137] Future Scheduled 1967 CT Colonography (combo) [facility] 00:00:00 [code = CT Colonography [facility] (combo)] Future Scheduled 1967 Screening for malignant [facility] 00:00:00 neoplasm of colon Medical Ce nter (procedure) [code = 683329569] Future Scheduled 1967 Screening for malignant [facility] 00:00:00 neoplasm of colon Medical Ce nter (procedure) [code = 749271036] Future Scheduled 1967 Sigmoidoscopy [code = [facility] Sigmoidoscopy] Medical [place] r Future Scheduled 1967 Screening for malignant [facility] 00:00:00 neoplasm of breast Medical C enter (procedure) [code = 532276044] Future Scheduled 1967 CT Colonography (combo) [facility] 00:00:00 [code = CT Colonography [facility] (combo)] Future Scheduled 1967 Screening for malignant [facility] 00:00:00 neoplasm of colon Medical Ce nter (procedure) [code = 637615249] Future Scheduled 1967 Screening for malignant [facility] 00:00:00 neoplasm of colon Medical Ce nter (procedure) [code = 006911608] Future Scheduled 1967 Sigmoidoscopy [code = [facility] Sigmoidoscopy] Medical Paol[facility] r Future Scheduled 1967 Screening for malignant [facility] 00:00:00 neoplasm of breast Medical C enter (procedure) [code = 107259480] Future Scheduled 1967 CT Colonography (combo) [facility] 00:00:00 [code = CT Colonography [facility] (combo)] Future Scheduled 1967 Screening for malignant [facility] 00:00:00 neoplasm of colon Medical Ce nter (procedure) [code = 483531226] Future Scheduled 1967 Screening for malignant [facility] 00:00:00 neoplasm of colon Medical Ce nter (procedure) [code = 153983934] Future Scheduled 1967 Sigmoidoscopy [code = [facility] 00:[facility] Sigmoidoscopy] Medical Paol[facility] r Future Scheduled 1967 Screening for malignant [facility] 00:00:00 neoplasm of breast Medical C enter (procedure) [code = 037371338] Future Scheduled 1967 CT Colonography (combo) [facility] 00:00:00 [code = CT Colonography [facility] (combo)] Future Scheduled 1967 Screening for malignant [facility] 00:00:00 neoplasm of colon Medical Ce nter (procedure) [code = 998468917] Future Scheduled 1967 Screening for malignant [facility] 00:00:00 neoplasm of colon Medical Ce nter (procedure) [code = 398472951] Future Scheduled 1967 Sigmoidoscopy [code = [facility] 00:[facility] Sigmoidoscopy] Medical Cente r Future Scheduled 1967 Screening for malignant [facility] 00:00:00 neoplasm of breast Medical C enter (procedure) [code = 441879654] Future Scheduled 1967 CT Colonography (combo) [facility] 00:00:00 [code = CT Colonography [facility] (combo)] Future Scheduled 1967 Screening for malignant [facility] 00:00:00 neoplasm of colon Medical Ce nter (procedure) [code = 134504692] Future Scheduled 1967 Screening for malignant [facility] 00:00:00 neoplasm of colon Medical Ce nter (procedure) [code = 546068370] Future Scheduled 1967 Sigmoidoscopy [code = [facility] 00:[facility] Sigmoidoscopy] Medical Cente r Future Scheduled 1967 Screening for malignant [facility] 00:00:00 neoplasm of breast Medical C enter (procedure) [code = 906177235] Future Scheduled 1967 CT Colonography (combo) [facility] 00:00:00 [code = CT Colonography [facility] (combo)] Future Scheduled 1967 Screening for malignant [facility] 00:00:00 neoplasm of colon Medical Ce nter (procedure) [code = 790087044] Future Scheduled 1967 Screening for malignant [facility] 00:00:00 neoplasm of colon Medical Ce nter (procedure) [code = 404897014] Future Scheduled 1967 Sigmoidoscopy [code = [facility] 00:[facility] Sigmoidoscopy] Medical Cente r Future Scheduled 1967 Screening for malignant [facility] 00:00:00 neoplasm of breast Medical C enter (procedure) [code = 226575536] Future Scheduled 1967 CT Colonography (combo) [facility] 00:00:00 [code = CT Colonography [facility] (combo)] Future Scheduled 1967 Screening for malignant [facility] 00:00:00 neoplasm of colon Medical Ce nter (procedure) [code = 247093432] Future Scheduled 1967 Screening for malignant [facility] 00:00:00 neoplasm of colon Medical Ce nter (procedure) [code = 112991383] Future Scheduled 1967 Sigmoidoscopy [code = [facility] 00:[facility] Sigmoidoscopy] Medical Cente r Future Scheduled 1967 Screening for malignant [facility] 00:00:00 neoplasm of breast Medical C enter (procedure) [code = 061962337] Future Scheduled 1967 Screening for malignant [facility] 00:00:00 neoplasm of breast Medical C enter (procedure) [code = 522459884] Future Scheduled 1967 CT Colonography (combo) [facility] 00:00:00 [code = CT Colonography [facility] (combo)] Future Scheduled 1967 Screening for malignant [facility] 00:00:00 neoplasm of colon Medical Ce nter (procedure) [code = 288729604] Future Scheduled 1967 Screening for malignant [facility] 00:00:00 neoplasm of colon Medical Ce nter (procedure) [code = 059787843] Future Scheduled 1967 Sigmoidoscopy [code = [facility] 00:[facility] Sigmoidoscopy] Medical Cente r Future Scheduled 1967 CT Colonography (combo) [facility] 00:00:00 [code = CT Colonography [facility] (combo)] Future Scheduled 1967 Screening for malignant [facility] 00:00:00 neoplasm of colon Medical Ce nter (procedure) [code = 390651448] Future Scheduled 1967 Screening for malignant [facility] 00:00:00 neoplasm of colon Medical Ce nter (procedure) [code = 186027542] Future Scheduled 1967 Screening for malignant [facility] 00:00:00 neoplasm of breast Medical C enter (procedure) [code = 137939188] Future Scheduled 1967 CT Colonography (combo) [facility] 00:00:00 [code = CT Colonography [facility] (combo)] Future Scheduled 1967 Screening for malignant [facility] 00:00:00 neoplasm of colon Medical Ce nter (procedure) [code = 249412799] Future Scheduled 1967 Screening for malignant [facility] 00:00:00 neoplasm of colon Medical Ce nter (procedure) [code = 743936295] Future Scheduled 1967 Sigmoidoscopy [code = [facility] Sigmoidoscopy] Medical Cente r Future Scheduled 1967 Sigmoidoscopy [code = [facility] 00[facility] Sigmoidoscopy] Medical Cente r Encounters Start End Encounter Admission Attending Care Care Encounter Source Date/Time Date/Time Type Type Clinicians Facility Department ID 2022-11-17 Outpatient SYSTEM, TAO BURGER [id number] 12:15:21 PROVIDER Lauri olivier 2021-08-29 Emergency [facility] [id number] Univers 21:08:39 [facility] 2020-08-23 Inpatient Tapan Martin [facility] [id number] [facility] 15:14:00 14 [facility] 2019-12-07 Inpatient KYLAH Kaur [facility]O [id number] [facility] 10:00:00 Zacarias 32 [facility] 2023-08-09 2023-08-09 Outpatient Leona VARGAS [facility] [id number] Univers 09:45:00 09:45:00 NEREIDA [facility] 2023-07-19 2023-07-19 Outpatient JERRY CUMMINGS [facility] [id number] Univers 14:00:00 14:00:00 JERRY CORTES [facility] 2023-06-22 2023-06-22 Procedure Thosani, 1.2.840.1 [id number] Univers 10:00:00 10:30:00 visit [place] Otto 68944.1.1 it [facility] 3.412.2.7 [place] .[id number] .8 Liane olivier [facility] 2023-06-22 2023-06-22 Orders Thosani, 1.2.840.1 [id number] Univers 00:00:00 00:00:00 Only No Otto 50694.1.1 it y of 3.412.2.7 [place] .3.728501 .8 Liane olivier [facility] 2023-06-21 2023-06-21 Outpatient KYLAH LOPES MDA MDA [id number] 09:51:38 10:54:10 ANGELA Carreon clint n 2023-06-21 2023-06-21 Telephone Angela Lopes 1.2.840.1 [id number] Univers 09:00:00 10:54:10 JigarFreya Sourav 27007.1.1 ity of 3.412.2.7 [place] .3.858433 .8 [facility] 2023-06-21 2023-06-21 Transition LAUREN De Souza 1.2.840.114 [id number] Univers 00:00:00 00:00:00 of Jose GIANG 350.1.13.10 it y of [place] 4.2.7.2.686 [facility] [id number] [place] [address] [place] 2023-06-17 2023-06-19 Inpatient X [facility] [id number] Univers 13:45:00 17:42:00 RADHA FIGUEROANAM ity of [facility] 2023-06-17 2023-06-19 [facility] Maximus Chapa [facility] 1.2.840.11 4 [id number] Univers 13:45:00 17:42:00 Encounter Joselynmadeleine [facility] 350.1.13.10 ity of Maximus Wiseman 4.2.7.2.686 [place] [id number] [address] ([facility]) 2023-06-17 2023-06-17 Treatment Abdon Poole 1.2.840.1 [id number] Univers 13:00:00 13:42:24 Sheba Olivarez 50066.1.1 ity of 3.412.2.7 [place] .3.092004 MD Soares8 Liane olivier [facility] 2023-06-17 2023-06-17 Outpatient ABDON SANDOVAL MDA, MDA [id number] 12:30:23 13:42:24 Lauri cox [place] 2023-06-17 2023-06-17 Outpatient KYLAH ASHERROW, [facility] [id number] 12:15:00 12:30:25 DENICE Lauri cox [place] 2023-06-17 2023-06-17 Documentat Sher, 1.2.840.1 [id number] Univers 00:00:00 00:00:00 ion Sheba 34318.1.1 ity of 3.412.2.7 [place] .3.408021 MD [facility] 2023-06-17 2023-06-17 Documentat Sher, 1.2.840.1 [id number] Univers 00:00:00 00:00:00 ion Sheba 15895.1.1 ity of 3.412.2.7 [place] .3.620110 MD [facility] 2023-06-17 2023-06-17 Travel 1.2.840.1 1.2.447.389 [id number] [id number] Univers 00:00:00 00:00:00 17135.1.1 350.1.13.41 ity of 3.412.2.7 2.[place].7.3.698 [place] .3.801023 084.8 MD [facility] 2023-06-16 2023-06-16 Telephone Antonella, 1.2.840.1 [id number] Univers 00:00:00 00:00:00 Red M 87211.1.1 it y of 3.412.2.7 [place] .3.497882 MD [facility] 2023-06-08 2023-06-08 Documentat Jenny, 1.2.840.1 [id number] Univers 00:00:00 00:00:00 ion Jenna 27231.1.1 ity of 3.412.2.7 [place] .3.222961 MD [facility] 2023-06-08 2023-06-08 Documentat Jenny, 1.2.840.1 [id number] Univers 00:00:00 00:00:00 jennifer West 93754.1.1 ity of 3.412.2.7 [place] .3.797049 MD Soares8 [facility] 2023-06-07 2023-06-07 OLGA Charles 1.2.840.114 [id number] Univers 00:00:00 00:00:00 Shelby Costa STEVE 350.1.13.10 ity of [facility] 4.2.7.2.686 Frankie as [id number] [address] 2023-06-06 2023-06-06 Rohith Hdez 1.2.840.1 [id number] Univers 00:00:00 00:00:00 Lorena 96309.1.1 ity of [place] 3.412.2.7 [place] .3.310845 MD Soares8 [facility] 2023-06-06 2023-06-06 [facility] 1.2.840.114 [id number] Univers 00:00:00 00:00:00 [facility] 350.1.13.10 it y of [place] 4.2.7.2.686 Frankie as JAVIER?BLEA [id number] [address] MEDICAL OFFICE BUILDING 2023-06-06 2023-06-06 Rohith Hdez 1.2.840.1 [id number] Univers 00:00:00 00:00:00 Lorena 99254.1.1 ity of [place] 3.412.2.7 [place] .3.212842 MD Soares8 [facility] 2023-05-26 2023-05-27 Emergency [facility] [id number] Univers 20:55:00 00:30:00 DESTINEY ity [facility] 2023-05-26 2023-05-27 [facility] 1.2.868.596 [id number] Univers 20:55:00 00:30:00 [facility] 350.1.13.10 ity of [place] 4.2.7.2.686 [place] [facility] [id number] [place] [address]134 [place] 2023-05-27 2023-05-27 Rohith [facility] 1.2.840.114 [id number] Univers 00:00:00 00:00:00 Lee HEALTH 350.1.13.10 it y of [place] 4.2.7.2.686 Frankie as JAVIER?BLEA [id number] [facility] 044 [place] MEDICAL OFFICE BUILDING 2023-05-26 2023-05-26 Telemedici Jose, 1.2.840.1 [id number] Univers 15:30:00 16:00:00 ne Seliece 31791.1.1 ity of 3.412.2.7 [place] .3.139730 MD Soares8 [facility] 2023-05-26 2023-05-26 Telemedici Jose, 1.2.840.1 [id number] Univers 15:30:00 16:00:00 ne Seliece 76239.1.1 ity of 3.412.2.7 [place] .3.495121 .8 [facility] 2023-05-26 2023-05-26 Telephone Jose, 1.2.840.1 [id number] [id number] Univers 00:00:00 00:00:00 Seliece 88331.1.1 ity of 3.412.2.7 [place] .3.863942 .8 [facility] 2023-05-26 2023-05-26 Telephone Jenny, 1.2.840.1 [id number] Univers 00:00:00 00:00:00 Jenna 46325.1.1 ity of 3.412.2.7 [place] .3.191278 .8 [facility] 2023-05-26 2023-05-26 Rohith [facility] 1.2.840.114 [id number] Univers 00:00:00 00:00:00 Nereida HEALTH 350.1.13.10 it y of [place] 4.2.7.2.686 Frankie as JAVIER?BLEA [id number] [address] MEDICAL OFFICE BUILDING 2023-05-26 2023-05-26 Telephone Jose, 1.2.840.1 [id number] [id number] Univers 00:00:00 00:00:00 Seliece 13013.1.1 ity of 3.412.2.7 [place] .3.109392 MD Soares8 [facility] 2023-05-26 2023-05-26 Telephone Jenny, 1.2.840.1 [id number] Univers 00:00:00 00:00:00 Jenna 01004.1.1 ity of 3.412.2.7 [place] .3.712560 MD Soares8 [facility] 2023-05-25 2023-05-25 Orders Jose, 1.2.840.1 [id number] Univers 00:00:00 00:00:00 Only Seliegirish 46038.1.1 ity of 3.412.2.7 [place] .3.239656 MD Soares8 [facility] 2023-05-25 2023-05-25 Orders Jose, 1.2.840.1 [id number] Univers 00:00:00 00:00:00 Only Seliegirish 41697.1.1 ity of 3.412.2.7 [place] .3.080431 MD [facility] 2023-05-24 2023-05-24 Telephone No Andrade 1.2.840.1 101 [id number] Univers 11:00:00 12:20:42 Needle, Freya A 87447.1.1 ity of 3.412.2.7 [place] .3.804996 MD Soares8 [facility] 2023-05-24 2023-05-24 Telephone No Diaz 1.2.840.1 101 [id number] Univers 11:00:00 12:20:42 Needle, Freya A 57389.1.1 ity of 3.412.2.7 [place] .3.358858 MD [facility] 2023-05-21 2023-05-21 Documentat Jerry, 1.2.840.1 [id number] Univers 00:00:00 00:00:00 ion Akil J 05978.1.1 ity of 3.412.2.7 [place] .3.342036 MD Soares8 [facility] 2023-05-21 2023-05-21 Documentat Nabil, 1.2.840.1 [id number] Univers 00:00:00 00:00:00 ion Nereida Johnston 76057.1.1 it y of 3.412.2.7 [place] .3.874348 MD Soares8 [facility] 2023-05-21 2023-05-21 Documentat Jerry, 1.2.840.1 [id number] Univers 00:00:00 00:00:00 ion Akil J 69127.1.1 ity of 3.412.2.7 [place] .3.276737 MD Soares8 [facility] 2023-05-21 2023-05-21 Documentat Nabil, 1.2.840.1 [id number] Univers 00:00:00 00:00:00 ion Nereida Vickie 07736.1.1 it y of 3.412.2.7 [place] .3.429725 MD [facility] 2023-05-18 2023-05-18 Telephone No Andrade 1.2.840.1 101 [id number] Univers 14:00:00 14:30:00 Freya Kimball A 06172.1.1 ity of 3.412.2.7 [place] .3.970838 MD Soares8 [facility] 2023-05-18 2023-05-18 Telephone No Diaz 1.2.840.1 101 [id number] Univers 14:00:00 14:30:00 Needle, Freya A 13642.1.1 ity of 3.412.2.7 [place] .3.979671 MD Soares8 [facility] 2023-05-11 2023-05-11 Telephone Jose 1.2.840.1 [id number] Univers 00:00:00 00:00:00 Denice 68893.1.1 ity of 3.412.2.7 [place] .3.656849 MD [facility] 2023-05-11 2023-05-11 Telephone Jose, 1.2.840.1 [id number] [id number] Univers 00:00:00 00:00:00 Denice 85117.1.1 ity of 3.412.2.7 [place] .3.493309 MD [facility] 2023-05-05 2023-05-05 OLGA Yost 1.2.840.114 [id number] Univers 00:00:00 00:00:00 Deyanira WILSON 350.1.13.10 it y of [facility] 4.2.7.2.686 Frankie as [id number] [place] [address] [place] 2023-05-02 2023-05-02 Telephone Raymond, 1.2.840.1 [id number] Univers 00:00:00 00:00:00 No Olivier. 89304.1.1 it y of 3.412.2.7 [place] .3.062135 MD Soares8 [facility] 2023-05-02 2023-05-02 Telephone Raymond, 1.2.840.1 [id number] Univers 00:00:00 00:00:00 No Olivier. 49948.1.1 it y of 3.412.2.7 [place] .3.045962 MD [facility] 2023-04-22 2023-04-22 Follow-Up Luu, 1.2.840.1 [id number] [id number] Univers 14:30:00 16:41:41 Winter 14561.1.1 ity of [place] 3.412.2.7 [place] .3.202820 MD [facility] 2023-04-22 2023-04-22 Follow-Up EL Luu, 1.2.840.1 [id number] [id number] Univers 14:30:00 16:41:41 Winter 03917.1.1 ity of [place] 3.412.2.7 [place] .3.630554 MD [facility] 2023-04-22 2023-04-22 Follow-Up Kenny Power, 1.2.840.1 [id number] Univers 15:40:00 16:37:58 Celyne 27158.1.1 ity of 3.412.2.7 [place] .3.648965 MD Soares8 [facility] 2023-04-22 2023-04-22 Follow-Up KYLAH Power, 1.2.840.1 [id number] Univers 15:40:00 16:37:58 Celyne 60086.1.1 ity of 3.412.2.7 [place] .3.133084 MD [facility] 2023-04-22 2023-04-22 Ancillary Grant, 1.2.840.1 [id number] Univers 12:15:00 14:00:00 Procedure Winter 71748.1.1 it y of [place] 3.412.2.7 [place] .3.324264 MD [facility] 2023-04-22 2023-04-22 Ancillary [facility], 1.2.840.1 [id number] Univers 12:15:00 14:00:00 Procedure Winter 82590.1.1 it y of [place] 3.412.2.7 [place] .3.728516 MD [facility] 2023-04-22 2023-04-22 Outpatient [facility], MDA MDA [id number] MD 12:18:34 12:30:06 WINTER olivier 2023-04-22 2023-04-22 Travel 1.2.840.1 1.2.240.427 [id number] [id number] Univers 00:00:00 00:00:00 69058.1.1 350.1.13.41 ity of 3.412.2.7 2.[place].7.3.698 [place] .3.179497 084.8 MD [facility] 2023-04-22 2023-04-22 Travel 1.2.840.1 1.2.045.637 4474 [id number] Univers 00:00:00 00:00:00 15080.1.1 350.1.13.41 ity of 3.412.2.7 2.[place].7.3.698 [place] .3.486131 084.8 MD Soares8 [facility] 2023-04-09 2023-04-09 Rohith Thomas 1.2.840.1 [id number] Univers 00:00:00 00:00:00 Kyung 27636.1.1 ity of 3.412.2.7 [place] .3.182743 MD Soares8 [facility] 2023-04-09 2023-04-09 Rohith Thomas 1.2.840.1 [id number] Univers 00:00:00 00:00:00 Kyung 70304.1.1 ity of 3.412.2.7 [place] .3.591213 MD Soares8 [facility] 2023-04-08 2023-04-08 Office [facility] 1.2.840.114 [id number] Univers 10:00:00 10:15:00 Visit [facility] 350.1.13.10 it y of [place] 4.2.7.2.686 Frankie as JAVIER?BLEA [id number] [address] MEDICAL OFFICE BUILDING 2023-04-08 2023-04-08 Outpatient [facility] [id number] Univers 10:00:00 09:19:43 NEREIDA ity of [facility] 2023-04-08 2023-04-08 Rohith Gordon 1.2.840.1 [id number] Univers 00:00:00 00:00:00 Miguel Fernandez 98156.1.1 it y of 3.412.2.7 [place] .3.624661 MD [facility] 2023-04-08 2023-04-08 Rohith Gordon, 1.2.840.1 [id number] Univers 00:00:00 00:00:00 Miguel Fernandez 99851.1.1 it y of 3.412.2.7 [place] .3.124447 MD [facility] 2023-03-12 2023-04-06 Nutrition Kenya [place]. 1.2.840.1 [id number] Univers 11:00:00 15:50:58 Lian Jaramillo 56939.1.1 ity of 3.412.2.7 [place] .3.885762 MD Soares8 [facility] 2023-03-12 2023-04-06 Nutrition EL Kenya [place]. 1.2.840.1 [id number] Univers 11:00:00 15:50:58 Lian Jaramillo 92520.1.1 ity of 3.412.2.7 [place] .3.021243 MD [facility] 2023-03-31 2023-03-31 Office Oo, Thein 1.2.840.1 [id number] [id number] Univers 10:30:00 11:14:16 Visit 71880.1.1 ity of 3.412.2.7 [place] .3.936303 MD [facility] 2023-03-31 2023-03-31 Office EL Oo, Thein 1.2.840.1 [id number] [id number] Univers 10:30:00 11:14:16 Visit 99788.1.1 ity of 3.412.2.7 [place] .3.716373 MD [facility] 2023-03-31 2023-03-31 Travel 1.2.840.1 1.2.132.394 2243 [id number] Univers 00:00:00 00:00:00 99226.1.1 350.1.13.41 ity of 3.412.2.7 2.[place].7.3.698 [place] .3.631718 084.8 MD [facility] 2023-03-31 2023-03-31 Travel 1.2.840.1 1.2.436.391 3004 [id number] Univers 00:00:00 00:00:00 23223.1.1 350.1.13.41 ity of 3.412.2.7 2.[place].7.3.698 [place] .3.793991 084.8 MD [facility] 2023-03-30 2023-03-30 Outpatient Aguipeterson_M VFP VFP 93324 45-20 Village 00:00:00 00:00:00 [id number] Family Practic e 2023-03-26 2023-03-26 Telephone Kandy, 1.2.840.1 [id number] Univers 00:00:00 00:00:00 Viry March 31813.1.1 it y of 3.412.2.7 [place] .3.188873 MD Soares8 [facility] 2023-03-26 2023-03-26 Telephone Kandy, 1.2.840.1 [id number] Univers 00:00:00 00:00:00 Viry March 24318.1.1 it y of 3.412.2.7 [place] .3.868155 MD Soares8 [facility] 2023-03-19 2023-03-23 Cathie Lopes, 1.2.840.1 [id number] Univers 13:30:00 07:29:30 ne Angela 07492.1.1 ity of 3.412.2.7 [place] .3.939635 MD [facility] 2023-03-19 2023-03-23 Telemcabrera Lopes, 1.2.840.1 [id number] Univers 13:30:00 07:29:30 ne Angela 11880.1.1 ity of 3.412.2.7 [place] .3.856176 MD [facility] 2023-03-23 2023-03-23 Telephone Lan, 1.2.840.1 [id number] Univers 00:00:00 00:00:00 Lindy 76617.1.1 ity of [place] 3.412.2.7 [place] .3.812050 MD Soares8 [facility] 2023-03-23 2023-03-23 Orders [place], 1.2.840.1 [id number] Univers 00:00:00 00:00:00 Only Lindy 36889.1.1 ity of [place] 3.412.2.7 [place] .3.211793 MD Soares8 [facility] 2023-03-23 2023-03-23 Telephone Lan, 1.2.840.1 [id number] Univers 00:00:00 00:00:00 Lindy 37127.1.1 ity of [place] 3.412.2.7 [place] .3.015700 MD Soares8 [facility] 2023-03-23 2023-03-23 Orders Lan, 1.2.840.1 [id number] Univers 00:00:00 00:00:00 Only Lindy 01201.1.1 ity of [place] 3.412.2.7 [place] .3.534814 MD Soares8 [facility] 2023-03-18 2023-03-18 Telephone [facility], 1.2.840.1 [id number] Univers 00:00:00 00:00:00 Celyne 13508.1.1 ity of 3.412.2.7 [place] .3.708880 MD Soares8 [facility] 2023-03-18 2023-03-18 Telephone [facility], 1.2.840.1 [id number] Univers 00:00:00 00:00:00 Celyne 72670.1.1 ity of 3.412.2.7 [place] .3.819264 MD Soares8 [facility] 2023-03-16 2023-03-16 Orders Hdez, 1.2.840.1 [id number] Univers 00:00:00 00:00:00 Only Lorena 88892.1.1 ity of [place] 3.412.2.7 [place] .3.408591 MD [facility] 2023-03-16 2023-03-16 Orders Lemuel, 1.2.840.1 [id number] Univers 00:00:00 00:00:00 Only Lorena 28356.1.1 ity of [place] 3.412.2.7 [place] .3.973205 MD Soares8 [facility] 2023-03-12 2023-03-12 Orders Doctor OLGA 1.2.840.114 [id number] Univers 00:00:00 00:00:00 Only Unassigned, STEVE 350.1.13.10 ity of [facility] 4.2.7.2.686 Frankie as [id number] [facility] [facility] 2023-03-11 2023-03-11 Infusion Lemuel, 1.2.840.1 [id number] Univers 13:30:00 15:40:13 Lorena 23048.1.1 ity of Kayla 3.412.2.7 [place] .3.951093 MD [facility] 2023-03-11 2023-03-11 Infusion KYLAH Hdez, 1.2.840.1 [id number] [id number] Univers 13:30:00 15:40:13 Lorena 07494.1.1 ity of Kayla 3.412.2.7 [place] .3.484077 MD [facility] 2023-03-11 2023-03-11 Follow-Up Lemuel, 1.2.840.1 [id number] 1106 [id number] Univers 11:20:00 12:42:16 Lorena 94431.1.1 ity of Kayla 3.412.2.7 [place] .3.337048 MD [facility] 2023-03-11 2023-03-11 Follow-Up KYLAH Hdez, 1.2.840.1 [id number] 1106 [id number] Univers 11:20:00 12:42:16 Lorena 34375.1.1 ity of Kayla 3.412.2.7 [place] .3.680643 MD [facility] 2023-03-11 2023-03-11 Outpatient KYLAH LEMUEL, [facility] [id number] 006 11:07:27 11:16:17 LORENA Ruelas [facility] 2023-03-11 2023-03-11 Travel 1.2.840.1 1.2.199.085 6967 [id number] Univers 00:00:00 00:00:00 18576.1.1 350.1.13.41 ity of 3.412.2.7 [place]7.3.698 [place] .3.130392 084.8 MD [facility] 2023-03-11 2023-03-11 Travel 1.2.840.1 1.2.506.907 2407 [id number] Univers 00:00:00 00:00:00 73895.1.1 350.1.13.41 ity of 3.412.2.7 2.[place].7.3.698 [place] .3.927088 084.8 MD [facility] 2023-03-09 2023-03-09 Telephone Hdez, 1.2.840.1 [id number] 1106 [id number] Univers 00:00:00 00:00:00 Lorena 30242.1.1 ity of [place] 3.412.2.7 [place] .3.152443 MD [facility] 2023-03-09 2023-03-09 Telephone Hdez, 1.2.840.1 [id number] 1106 [id number] Univers 00:00:00 00:00:00 Lorena 61678.1.1 ity of [place] 3.412.2.7 [place] .3.182237 MD [facility] 2023-03-04 2023-03-04 [place] Gastelum 1.2.840.1 [id number] Univers 10:00:00 10:57:47 Lian Jaramillo 09397.1.1 ity of 3.412.2.7 [place] .3.643079 MD [facility] 2023-03-04 2023-03-04 Nutrition Kenya Arechiga Y. 1.2.840.1 [id number] 23 [id number] Univers 10:00:00 10:57:47 Lian Jaramillo 29008.1.1 ity of 3.412.2.7 [place] .3.141223 MD [facility] 2023-03-04 2023-03-04 Anabell Hdez 1.2.840.1 [id number] Univers 00:00:00 00:00:00 Only Lorena 92852.1.1 ity of [place] 3.412.2.7 [place] .3.987767 MD [facility]8 [facility] 2023-03-04 2023-03-04 Telephone Doyle 1.2.840.1 [id number] 1105 [id number] Univers 00:00:00 00:00:00 Tita Mayorga 60759.1.1 ity of 3.412.2.7 [place] .3.628656 MD [facility] 2023-03-04 2023-03-04 Anabell Gordon 1.2.840.1 [id number] Univers 00:00:00 00:00:00 Only Miguel Fernandez 69468.1.1 it y of 3.412.2.7 [place] .3.830098 MD [facility] 2023-03-04 2023-03-04 OLGA Yost 1.2.840.114 [id number] Univers 00:00:00 00:00:00 Deyanira WILSON 350.1.13.10 it y of [facility] 4.2.7.2.686 Frankie as [id number] [place] [address] [place] 2023-03-04 2023-03-04 Anabell Hdez 1.2.840.1 [id number] Univers 00:00:00 00:00:00 Only Lorena 60493.1.1 ity of Kayla 3.412.2.7 [place] .3.374978 MD [facility] 2023-03-04 2023-03-04 Telephone Doyle, 1.2.840.1 [id number] 1105 [id number] Univers 00:00:00 00:00:00 Tita Mayorga 91682.1.1 ity of 3.412.2.7 [place] .3.138989 MD [facility]ares8 [facility] 2023-03-04 2023-03-04 Anabell Gordon, 1.2.840.1 [id number] 5153 Univers 00:00:00 00:00:00 Only Miguel Fernandez 88068.1.1 it y of 3.412.2.7 [place] .3.965953 MD Soares8 [facility] 2023-03-03 2023-03-03 Outpatient KYLAH HDEZ [facility] [id number] [place] 12:48:25 13:03:52 LORENA Ruelas [facility] 2023-03-03 2023-03-03 Follow-Up Kenny Power, 1.2.840.1 [id number] Univers 11:40:00 12:57:39 Celyne 43152.1.1 ity of 3.412.2.7 [place] .3.356342 MD Soares8 [facility] 2023-03-03 2023-03-03 Follow-Up KYLAH Power, 1.2.840.1 [id number] Univers 11:40:00 12:57:39 Celyne 13584.1.1 ity of 3.412.2.7 [place] .3.737885 MD [facility]ares8 [facility] 2023-03-03 2023-03-03 Rohith Santillan, 1.2.840.1 [id number] Univers 00:00:00 00:00:00 Anumol 18045.1.1 ity of 3.412.2.7 [place] .3.873960 MD [facility]ares8 [facility] 2023-03-03 2023-03-03 Travel 1.2.840.1 1.2.830.762 7561 [id number] Univers 00:00:00 00:00:00 88115.1.1 350.1.13.41 ity of 3.412.2.7 2.2.7.3.698 [place] .3.476094 084.8 MD Soares8 [facility] 2023-03-03 2023-03-03 Rohith Santillan, 1.2.840.1 [id number] Univers 00:00:00 00:00:00 Anumol 95040.1.1 ity of 3.412.2.7 [place] .3.991484 MD Soares8 [facility] 2023-03-03 2023-03-03 Travel 1.2.840.1 1.2.585.964 6518 [id number] Univers 00:00:00 00:00:00 93930.1.1 350.1.13.41 ity of 3.412.2.7 2.2.7.3.698 [place] .3.179554 084.8 MD [facility] 2023-03-02 2023-03-02 Rohith Santillan, 1.2.840.1 [id number] 0945 Univers 00:00:00 00:00:00 Anumol 77196.1.1 ity of 3.412.2.7 [place] .3.549121 MD [facility]ares8 [facility] 2023-03-02 2023-03-02 Rohith Santillan, 1.2.840.1 [id number] 6387 Univers 00:00:00 00:00:00 Anumol 83935.1.1 ity of 3.412.2.7 [place] .3.209842 MD [facility] 2023-02-26 2023-02-26 Telemedici Evan, 1.2.840.1 [id number] Univers 08:30:00 08:56:14 april Fernandez 69941.1.1 it y of 3.412.2.7 [place] .3.612837 MD [facility] 2023-02-26 2023-02-26 Telemedici KYLAH Gordon, 1.2.840.1 [id number] Univers 08:30:00 08:56:14 april Fernandez 84891.1.1 it y of 3.412.2.7 [place] .3.209675 MD Soares8 [facility] 2023-02-25 2023-02-25 [place] Gastelum. 1.2.840.1 [id number] 23 [id number] Univers 10:00:00 11:13:11 Lian Jaramillo 16659.1.1 ity of 3.412.2.7 [place] .3Rodger655721 MD Soares8 [facility] 2023-02-25 2023-02-25 Nutrition EL [place]. 1.2.840.1 [id number] 23 [id number] Univers 10:00:00 11:13:11 Lian Jaramillo 74878.1.1 ity of 3.412.2.7 [place] .3.461016 MD Soares8 [facility] 2023-02-23 2023-02-23 [facility] 1.2.840.114 [id number] Univers 00:00:00 00:00:00 [facility] 350.1.13.10 it y of [place] 4.2.7.2.686 Frankie as JAVIER?BLEA [id number] [address] MEDICAL OFFICE BUILDING 2023-02-19 2023-02-19 Telephone Tonny, 1.2.840.1 [id number] 1105 [id number] Univers 00:00:00 00:00:00 Anthony Benjamin 52743.1.1 ity of 3.412.2.7 [place] .3.365862 MD Soares8 [facility] 2023-02-19 2023-02-19 Telephone Tonny, 1.2.840.1 [id number] 1105 [id number] Univers 00:00:00 00:00:00 Anthony Benjamin 38358.1.1 ity of 3.412.2.7 [place] .3.895357 MD Soares8 [facility] 2023-02-18 2023-02-18 [place] Gastelum. 1.2.840.1 [id number] 23 [id number] Univers 10:00:00 10:47:33 Lian Jaramillo 14498.1.1 ity of 3.412.2.7 [place] .3.327301 .8 [facility] 2023-02-18 2023-02-18 [facility] [place] Arechiga 1.2.840.1 [id number] 23 [id number] Univers 10:00:00 10:47:33 Lina Jaramillo 11822.1.1 ity of 3.412.2.7 [place] .3.035376 .8 [facility] 2023-02-05 2023-02-16 [facility] 1.2.840.1 [id number] 1 [id number] Univers 16:49:00 16:40:00 Encounter Felisa Rashid 05632.1.1 ity of Romana Guy 3.412.2.7 [place] Amanda Proctor .3.768098 Napoleon Romero, Son V. .8 A Derrick Sandoval, Kofi [facility]ega [facility] 2023-02-05 2023-02-16 [facility] 1.2.840.1 [id number] 1 [id number] Univers 16:49:00 16:40:00 Encounter Felisa Rashid 89201.1.1 ity of Romana Guy 3.412.2.7 [place] Amanda Proctor .3.096154 Napoleon Romero, Son V. .8 A Derrick Sandoval, Kofi Vega [facility] 2023-02-14 2023-02-14 Inpatient KYLAH TRINIDADTAO MDA [id number] 11:31:10 12:01:35 KOFISHAAN Carreon o soy 2023-02-13 2023-02-13 Inpatient KYLAH TRINIDAD MDA MDA [id number] 15:30:24 16:08:06 KOFI Lauri o n 2023-02-12 2023-02-12 [facility] [place] 1.2.840.1 [id number] 1 [id number] Univers 07:00:00 23:59:00 Encounter Y. 25264.1.1 it y of 3.412.2.7 [place] .3.840114 MD [facility] 2023-02-12 2023-02-12 [facility] [place] Arechiga 1.2.840.1 [id number] 1 [id number] Univers 07:00:00 23:59:00 Encounter Y. 61748.1.1 it y of 3.412.2.7 [place] .3.221519 MD Soares8 [facility] 2023-02-12 2023-02-12 [facility], 1.2.840.1 [id number] Univers 16:15:00 16:30:00 Support Winter 28368.1.1 ity of Gini 3.412.2.7 [place] .3.344356 MD [facility] 2023-02-12 2023-02-12 [facility], 1.2.840.1 [id number] Univers 16:15:00 16:30:00 Support Winter 84619.1.1 ity of Gini 3.412.2.7 [place] .3.855467 MD [facility] 2023-02-12 2023-02-12 Documentat Luu, 1.2.840.1 [id number] [id number] Univers 00:00:00 00:00:00 ion Winter 82030.1.1 ity of Gini 3.412.2.7 [place] .3.977297 MD [facility] 2023-02-12 2023-02-12 Orders Luu, 1.2.840.1 [id number] Univers 00:00:00 00:00:00 Only Winter 88874.1.1 ity of Gini 3.412.2.7 [place] .3Rodger448618 MD [facility] 2023-02-12 2023-02-12 Orders [facility], 1.2.840.1 [id number] Univers 00:00:00 00:00:00 Only Dustin 30712.1.1 ity of 3.412.2.7 [place] .3.830499 MD [facility] 2023-02-12 2023-02-12 Documentat Luu, 1.2.840.1 [id number] 003 [id number] Univers 00:00:00 00:00:00 ion Winter 41072.1.1 ity of Gini 3.412.2.7 [place] .3.653404 .8 [facility] 2023-02-12 2023-02-12 Orders Luu, 1.2.840.1 [id number] Univers 00:00:00 00:00:00 Only Winter 37077.1.1 ity of Gini 3.412.2.7 [place] .3.747502 .8 [facility] 2023-02-12 2023-02-12 Orders Bruce, 1.2.840.1 [id number] 5328 Univers 00:00:00 00:00:00 Only Dustin 44868.1.1 ity of 3.412.2.7 [place] .3.602115 .8 [facility] 2023-02-10 2023-02-10 Inpatient KENYA ARECHIGA MDA MDA [id number] [id number] 16:26:42 16:26:45 Lauri o n 2023-02-10 2023-02-10 Inpatient KYLAH TRINIDADTAO MDA [id number] 11:58:56 12:28:35 KOFI Richardsoners o n 2023-02-10 2023-02-10 Inpatient KYLAH TRINIDADTAO MDA [id number] 10:33:31 12:07:35 KOFI Lauri o n 2023-02-10 2023-02-10 Orders Charla Solis 1.2.840.1 [id number] 11 [id number] Univers 00:00:00 00:00:00 Only B 52129.1.1 ity of 3.412.2.7 [place] .3Rodger176394 .8 [facility] 2023-02-10 2023-02-10 Orders Charla Solis 1.2.840.1 [id number] 11 [id number] Univers 00:00:00 00:00:00 Only B 07077.1.1 ity of 3.412.2.7 [place] .3.988373 .8 [facility] 2023-02-09 2023-02-09 Inpatient KLYAH ABDI MDA MDA [id number] 20:20:46 20:27:48 KOFI Lauri o n 2023-02-08 2023-02-08 [facility] 1.2.840.1 [id number] 1 [id number] Univers 06:00:00 23:59:00 Encounter Y. 28691.1.1 it y of 3.412.2.7 [place] .3.804707 .8 [facility] 2023-02-08 2023-02-08 [facility] 1.2.840.1 [id number] 1 [id number] Univers 06:00:00 23:59:00 Encounter Y. 17027.1.1 it y of 3.412.2.7 [place] .3.480733 .8 [facility] 2023-02-08 2023-02-08 [facility] MDA MDA [id number] 11:08:59 11:38:36 Soy DERRICK Bandar o n 2023-02-08 2023-02-08 [facility] MDA MDA [id number] [id number] 10:14:12 10:14:16 Lauri o n 2023-02-06 2023-02-06 Inpatient THAO OSORIO MDA MDA 1104 [id number] 15:39:36 16:04:43 Lauri o n 2023-02-06 2023-02-06 Inpatient THAO OSORIO MDA MDA 1104 [id number] 13:24:20 14:51:55 Lauri o n 2023-02-06 2023-02-06 Inpatient THAO OSORIO MDA MDA 1104 [id number] 13:24:15 14:51:51 Lauri o n 2023-02-06 2023-02-06 [facility] 1.2.840.1 1.2.993.835 9019 [id number] [facility] 00:00:00 00:00:00 38279.1.1 350.1.13.41 ity of 3.412.2.7 [place]7.3.698 [place] .3.321183 084.8 MD Soares8 [facility] 2023-02-06 2023-02-06 Travel 1.2.840.1 1.2.116.390 7306 [id number] Univers 00:00:00 00:00:00 83331.1.1 350.1.13.41 ity of 3.412.2.7 2.[place].7.3.698 [place] .3.463140 084.8 MD Soares8 [facility] 2023-02-05 2023-02-05 Telephone [facility], 1.2.840.1 [id number] Univers 00:00:00 00:00:00 Celarturo 15739.1.1 ity of 3.412.2.7 [place] .3.930180 MD [facility] 2023-02-05 2023-02-05 Telephone [facility], 1.2.840.1 [id number] Univers 00:00:00 00:00:00 Celarturo 02017.1.1 ity of 3.412.2.7 [place] .3.647113 MD [facility] 2023-02-04 2023-02-04 Clinical Grant, 1.2.840.1 [id number] Univers 09:45:00 12:39:12 Support Winter 84662.1.1 ity of Gini 3.412.2.7 [place] .3.636355 MD Blair [facility] 2023-02-04 2023-02-04 Clinical [facility], 1.2.840.1 [id number] Univers 09:45:00 12:39:12 Support Winter 12268.1.1 ity of Gini 3.412.2.7 [place] .3.625396 MD Blair [facility] 2023-02-04 2023-02-04 Outpatient [facility] [id number] 12:23:55 12:34:00 CELYNE Lauri olivier 2023-02-04 2023-02-04 Outpatient KYLAH TONNYMANUELKENYA [facility] [id number] [id number] 11:16:00 11:43:29 Lauri olivier 2023-02-04 2023-02-04 Follow-Up Kenny Power, 1.2.840.1 [id number] Univers 10:40:00 11:00:00 Celyne 76221.1.1 ity of 3.412.2.7 [place] .3.113256 MD Soares8 [facility] 2023-02-04 2023-02-04 Follow-Up EL Kenny Power, 1.2.840.1 [id number] Univers 10:40:00 11:00:00 Celyne 79047.1.1 ity of 3.412.2.7 [place] .3.072165 MD [facility] 2023-02-04 2023-02-04 Travel 1.2.840.1 1.2.176.233 1909 [id number] Univers 00:00:00 00:00:00 11152.1.1 350.1.13.41 ity of 3.412.2.7 [place]7.3.698 [place] .3.107649 084.8 MD Soares8 [facility] 2023-02-04 2023-02-04 Travel 1.2.840.1 1.2.435.195 2885 [id number] Univers 00:00:00 00:00:00 72080.1.1 350.1.13.41 ity of 3.412.2.7 2.[place].7.3.698 [place] .3.585609 084.8 MD [facility] 2023-02-03 2023-02-03 Outpatient KENYA ARECHIGA [facility] [id number] 14:18:38 14:50:54 Lauri olivier 2023-02-03 2023-02-03 Infusion Kenny Power, 1.2.840.1 [id number] 1 [id number] [facility] 11:00:00 14:13:00 Celyne 91211.1.1 ity of 3.412.2.7 [place] .3.785104 .8 [facility] 2023-02-03 2023-02-03 Infusion KYLAH Power, 1.2.840.1 [id number] 1 [id number] Univers 11:00:00 14:13:00 Vaibhav 94513.1.1 ity of 3.412.2.7 [place] .3.443362 .8 [facility] 2023-02-03 2023-02-03 Anabell Hdez, 1.2.840.1 [id number] Univers 00:00:00 00:00:00 Only Lorena 38049.1.1 ity of Kayla 3.412.2.7 [place] .3.795595 MD Soares8 [facility] 2023-02-03 2023-02-03 Travel 1.2.840.1 1.2.179.026 6176 [id number] Univers 00:00:00 00:00:00 88267.1.1 350.1.13.41 ity of 3.412.2.7 2.2.7.3.698 [place] .3.356978 084.8 .Lilly [facility] 2023-02-03 2023-02-03 Anabell Hdez, 1.2.840.1 [id number] Univers 00:00:00 00:00:00 Only Lorena 45935.1.1 ity of Kayla 3.412.2.7 [place] .3.293000 MD [facility] 2023-02-03 2023-02-03 Travel 1.2.840.1 1.2.713.382 5092 [id number] Univers 00:00:00 00:00:00 07250.1.1 350.1.13.41 ity of 3.412.2.7 2.2.7.3.698 [place] .3.221236 084.8 MD [facility] 2023-02-02 2023-02-02 Outpatient KENYA ARECHIGA [facility] [id number] 13:32:42 14:29:34 [facility] 2023-02-02 2023-02-02 Travel 1.2.840.1 1.2.917.366 7673 [id number] Univers 00:00:00 00:00:00 87539.1.1 350.1.13.41 ity of 3.412.2.7 2.2.7.3.698 [place] .3.578470 084.8 .8 [facility] 2023-02-02 2023-02-02 Travel 1.2.840.1 1.2.939.887 7032 [id number] Univers 00:00:00 00:00:00 43844.1.1 350.1.13.41 ity of 3.412.2.7 2.[place].7.3.698 [place] .3.835950 084.8 .8 [facility] 2023-01-26 2023-02-01 [facility] 1.2.840.1 [id number] Univers 16:06:00 18:28:00 Encounter Jad Patel 36235.1.1 ity of Amanda Proctor 3.412.2.7 T Jaycee Castillo .3.063952 Brock Quijano .8 And evelin Wiley [facility] 2023-01-26 2023-02-01 [facility] 1.2.840.1 [id number] Univers 16:06:00 18:28:00 Encounter Jad Patel 70742.1.1 ity of Amanda Proctor 3.412.2.7 T Jaycee Castillo .3.674853 Brock Quijano .Lilly And evelin Wiley [facility] 2023-02-01 2023-02-01 Inpatient KENYA ARECHIGA [facility] [id number] 15:12:03 15:12:06 [facility] 2023-01-31 2023-01-31 Rohith Madrigal 1.2.840.1 [id number] Univers 00:00:00 00:00:00 Glenda Peñaloza 94387.1.1 i ty of 3.412.2.7 [place] .3.068785 MD Soares8 [facility] 2023-01-31 2023-01-31 Rohith Rohan, 1.2.840.1 [id number] Univers 00:00:00 00:00:00 Glenda Peñaloza 92676.1.1 i ty of 3.412.2.7 [place] .3.430053 MD Soares8 [facility] 2023-01-29 2023-01-29 [facility] [id number] 12:45:23 14:59:56 Suraj WILEY 2023-01-28 2023-01-28 Telephone Jonathan, 1.2.840.1 [id number] 1104 [id number] Univers 00:00:00 00:00:00 Felisa Costa 95303.1.1 ity of 3.412.2.7 [place] .3.993868 MD Soares8 [facility] 2023-01-28 2023-01-28 Anabell Hdez 1.2.840.1 [id number] Univers 00:00:00 00:00:00 Only Lorena 65363.1.1 ity of Kayla 3.412.2.7 [place] .3.755995 MD Soares8 [facility] 2023-01-28 2023-01-28 Telephone Jonathan, 1.2.840.1 [id number] [id number] Univers 00:00:00 00:00:00 Felisa Costa 90551.1.1 ity of 3.412.2.7 [place] .3.472407 MD Soares8 [facility] 2023-01-28 2023-01-28 Anabell Hdez 1.2.840.1 [id number] Univers 00:00:00 00:00:00 Only Lorena 95597.1.1 ity of Kayla 3.412.2.7 [place] .3.005524 MD Blair [facility] 2023-01-27 2023-01-27 Inpatient KYLAH BISHOP [facility] MDA [id number] 17:00:08 17:15:25 PARK olivier 2023-01-27 2023-01-27 Inpatient KENYA ARECHIGA [facility] MDA 1104 [id number] 16:29:18 16:29:21 Lauri olivier 2023-01-26 2023-01-26 Travel 1.2.840.1 1.2.508.120 3051 [id number] Univers 00:00:00 00:00:00 88360.1.1 350.1.13.41 ity of 3.412.2.7 2.[place]7.3.698 [place] .3.143391 084.8 MD Blair [facility] 2023-01-26 2023-01-26 Telephone Castillo, 1.2.840.1 [id number] 1104 [id number] Univers 00:00:00 00:00:00 Felisa M 02507.1.1 ity of 3.412.2.7 [place] .3.837388 MD [facility] 2023-01-26 2023-01-26 Telephone Castillo, 1.2.840.1 [id number] 1104 [id number] Univers 00:00:00 00:00:00 Felisa M 13963.1.1 ity of 3.412.2.7 [place] .3.930777 MD [facility] 2023-01-26 2023-01-26 Travel 1.2.840.1 1.2.421.861 7496 [id number] Univers 00:00:00 00:00:00 63574.1.1 350.1.13.41 ity of 3.412.2.7 2.2.7.3.698 [place] .3.733402 08Dannielle.8 MD [facility] 2023-01-26 2023-01-26 Telephone Castillo, 1.2.840.1 [id number] 1104 [id number] Univers 00:00:00 00:00:00 Felisa M 44416.1.1 ity of 3.412.2.7 [place] .3.547340 MD [facility] 2023-01-26 2023-01-26 Telephone Castillo, 1.2.840.1 [id number] 1104 [id number] Univers 00:00:00 00:00:00 Felisa Costa 19391.1.1 ity of 3.412.2.7 [place] .3.371472 MD [facility] 2023-01-25 2023-01-25 [facility] [place] 1.2.840.1 [id number] 1 [id number] Univers 06:00:00 23:59:00 Encounter Y. 30963.1.1 it y of 3.412.2.7 [place] .3.311454 MD Soares8 [facility] 2023-01-25 2023-01-25 [facility] [place] 1.2.840.1 [id number] 1 [id number] Univers 06:00:00 23:59:00 Encounter Y. 98280.1.1 it y of 3.412.2.7 [place] .3.907328 MD [facility] 2023-01-25 2023-01-25 [facility] [place] 1.2.840.1 [id number] 23 [id number] Univers 11:30:00 12:09:30 Lian Jaramillo 02655.1.1 ity of 3.412.2.7 [place] .3.950254 MD [facility] 2023-01-25 2023-01-25 [facility] [place] 1.2.840.1 [id number] 23 [id number] Univers 11:30:00 12:09:30 Lian Jaramillo 81804.1.1 ity of 3.412.2.7 [place] .3.336751 MD [facility] 2023-01-25 2023-01-25 Telephone Jonathan, 1.2.840.1 [id number] Univers 00:00:00 00:00:00 Felisa Costa 50563.1.1 ity of 3.412.2.7 [place] .3.878658 MD [facility] 2023-01-25 2023-01-25 Telephone Jonathan, 1.2.840.1 [id number] Univers 00:00:00 00:00:00 Felisa Costa 76154.1.1 ity of 3.412.2.7 [place] .3.906753 MD [facility] 2023-01-22 2023-01-22 Outpatient KENYA ARECHIGA [facility] [id number] 14:08:15 14:37:[facility]-01-22 2023-01-22 Nutrition [place]. 1.2.840.1 [id number] Univers 10:30:00 13:09:10 Lian Jaramillo 84772.1.1 ity of 3.412.2.7 [place] .3.212597 MD [facility] 2023-01-22 2023-01-22 Nutrition [place] Arechiga. 1.2.840.1 [id number] 23 [id number] [facility] 10:30:00 13:09:10 Lian Jaramillo 60937.1.1 ity of 3.412.2.7 [place] .3.573493 MD [facility] 2023-01-22 2023-01-22 Travel 1.2.840.1 1.2.454.309 [id number] [id number] Univers 00:00:00 00:00:00 46447.1.1 350.1.13.41 ity of 3.412.2.7 [place].3.698 [place] .3.759624 084.8 MD [facility] 2023-01-22 2023-01-22 Travel 1.2.840.1 1.2.739.894 6107 [id number] Univers 00:00:00 00:00:00 98661.1.1 350.1.13.41 ity of 3.412.2.7 2.[place].3.698 [place] .3.726620 084.8 MD [facility] 2023-01-21 2023-01-21 Infusion Lemuel, 1.2.840.1 [id number] Univers 08:45:00 14:45:37 Lorena 01750.1.1 ity of Kayla 3.412.2.7 [place] .3.880711 MD [facility] 2023-01-21 2023-01-21 Infusion EL Lemuel, 1.2.840.1 [id number] Univers 08:45:00 14:45:37 Lorena 32381.1.1 ity of Kayla 3.412.2.7 [place] .3.966747 MD Soares8 [facility] 2023-01-21 2023-01-21 Outpatient KENYA ARECHIGA [facility] [id number] 13:30:26 14:05:07 [facility] 2023-01-21 2023-01-21 Follow-Up Kenny Power, 1.2.840.1 [id number] Univers 08:00:00 09:18:40 Celyne 21311.1.1 ity of 3.412.2.7 [place] .3.278294 MD [facility] 2023-01-21 2023-01-21 Follow-Up KYLAH Power, 1.2.840.1 [id number] Univers 08:00:00 09:18:40 Celyne 33927.1.1 ity of 3.412.2.7 [place] .3.067364 MD [facility] 2023-01-21 2023-01-21 Travel 1.2.840.1 1.2.942.264 5416 [id number] Univers 00:00:00 00:00:00 95635.1.1 350.1.13.41 ity of 3.412.2.7 2.[place]7.3.698 [place] .3.411782 084.8 MD [facility] 2023-01-21 2023-01-21 Travel 1.2.840.1 1.2.070.650 [id number] Univers 00:00:00 00:00:00 24732.1.1 350.1.13.41 ity of 3.412.2.7 [place]7.3.698 [place] .3.383423 084.8 MD [facility] 2023-01-20 2023-01-20 Outpatient KYLAH LANCASTER KENYA [facility] MDA [id number] 12:58:49 13:48:03 Lauri n 2023-01-20 2023-01-20 Consult Koyyalagunt 1.2.840.1 [id number] Univers 11:20:00 12:57:27 a, 37801.1.1 ity of [place] .3.149823 MD [facility] 2023-01-20 2023-01-20 Consult KYLAH Orozcoagmary 1.2.840.1 [id number] Univers 11:20:00 12:57:27 a, 51295.1.1 ity of [place]2.7 [place] .3.868604 MD [facility] 2023-01-20 2023-01-20 Outpatient KYLAH HDEZ MDA [facility] [id number] 12:44:37 12:57:03 LORENA olivier 2023-01-20 2023-01-20 Documentat Nabil, 1.2.840.1 [id number] Univers 00:00:00 00:00:00 ion Nereida Johnston 09830.1.1 it y of 3.412.2.7 [place] .3.968672 MD Soares8 [facility] 2023-01-20 2023-01-20 Travel 1.2.840.1 1.2.362.558 [id number] [id number] Univers 00:00:00 00:00:00 94698.1.1 350.1.13.41 ity of 3.412.2.7 2.[place]7.3.698 [place] .3.321386 084.8 MD [facility] 2023-01-20 2023-01-20 Documentat Nabil, 1.2.840.1 [id number] Univers 00:00:00 00:00:00 ion Nereida Johnston 89923.1.1 it y of 3.412.2.7 [place] .3.702390 MD Soares8 [facility] 2023-01-20 2023-01-20 Travel 1.2.840.1 1.2.753.565 5496 [id number] Univers 00:00:00 00:00:00 98188.1.1 350.1.13.41 ity of 3.412.2.7 [place]7.3.698 [place] .3.801133 084.8 MD Soares8 [facility] 2023-01-19 2023-01-19 Clinical Luu, 1.2.840.1 [id number] Univers 15:30:00 16:24:21 Support Winter 12675.1.1 ity of [place] 3.412.2.7 [place] .3.540412 MD Soares8 [facility] 2023-01-19 2023-01-19 Clinical Jus, 1.2.840.1 [id number] Univers 15:30:00 16:24:21 Support Winter 06651.1.1 ity of [place] 3.412.2.7 [place] .3.166460 MD Soares8 [facility] 2023-01-19 2023-01-19 Outpatient KENYA ARECHIGA [facility] [id number] 14:39:40 15:15:48 Lauri jaramillo 2023-01-19 2023-01-19 Outpatient Leona VARGAS [facility]CD[facility]REK [facility] [id number] Univers 09:00:00 09:00:00 NEREIDA pierre of [facility] 2023-01-19 2023-01-19 Travel 1.2.840.1 1.2.334.098 5693 [id number] Univers 00:00:00 00:00:00 59682.1.1 350.1.13.41 ity of 3.412.2.7 [place].698 [place] .3.4623[place] 084.8 .8 [facility] 2023-01-19 2023-01-19 Travel 1.2.840.1 1.2.050.226 1868 [id number] Univers 00:00:00 00:00:00 00973.1.1 350.1.13.41 ity of 3.412.2.7 [place]3.698 [place] .3.157176 084.8 .8 [facility] 2023-01-11 2023-01-18 [facility] 1.2.840.1 [id number] [facility] 19:31:00 19:34:00 Encounter Roberto Carlos Walsh 08403.1.1 ity of Chung Romero [facility] 3.412.2.7 [facility] .3.025507 Brock Quijano .8 And [facility] 2023-01-11 2023-01-18 [facility] 1.2.840.1 [id number] [facility] 19:31:00 19:34:00 Encounter Roberto Carlos Walsh 98160.1.1 ity of Chung RomeroEstefanía 3.412.2.7 [facility] .3.387808 Brock Quijano .8 And [facility] 2023-01-17 2023-01-18 Inpatient KYLAH DIOR MDA MDA [id number] 23:34:01 00:08:34 BROCK olivier 2023-01-15 2023-01-15 Outpatient R RADIOLOGY [facility] [id number] Univers 10:00:00 10:00:00 ity of [facility] 2023-01-14 2023-01-14 Inpatient KYLAH DIOR MDA MDA [id number] 13:45:42 14:35:12 BROCK olivier 2023-01-14 2023-01-14 Inpatient KENYA ARECHIGA MDA, MDA [id number] 10:28:01 10:28:06 Lauri olivier 2023-01-14 2023-01-14 Orders Gorman, 1.2.840.1 [id number] Univers 00:00:00 00:00:00 Only Mukund 12029.1.1 [place] .3.5506[place] MD Soares8 [facility] 2023-01-14 2023-01-14 Orders Gorman, 1.2.840.1 [id number] Univers 00:00:00 00:00:00 Only Mukund 85744.1.1 [place] .3.2936[place] MD Soares8 [facility] 2023-01-13 2023-01-13 Inpatient KYLAH DIOR MDA [facility] [id number] MD 18:17:55 18:32:15 [facility] 2023-01-12 2023-01-12 Inpatient KENYA ARECHIGA [facility] [id number] 16:36:56 16:36:59 [facility] 2023-01-12 2023-01-12 Refmaddie Ordaz, 1.2.840.1 [id number] Univers 00:00:00 00:00:00 Cerena 29659.1.1 ity of 3.412.2.7 [place] .3.022062 MD Soares8 [facility] 2023-01-12 2023-01-12 Refmaddie Ordaz, 1.2.840.1 [id number] 0245 Univers 00:00:00 00:00:00 Cerena 40776.1.1 ity of 3.412.2.7 [place] .3.439716 MD Soares8 [facility] 2023-01-11 2023-01-11 Travel 1.2.840.1 1.2.356.199 2959 [id number] Univers 00:00:00 00:00:00 95897.1.1 350.1.13.41 ity of 3.412.2.7 [place].3.698 [place] .3.434628 084.8 MD Soares8 [facility] 2023-01-11 2023-01-11 Telephone Castillo, 1.2.840.1 [id number] 1103 [id number] Univers 00:00:00 00:00:00 Felisa Costa 83591.1.1 ity of 3.412.2.7 [place] .3.783179 .8 [facility] 2023-01-11 2023-01-11 Travel 1.2.840.1 1.2.129.501 6823 [id number] Univers 00:00:00 00:00:00 97882.1.1 350.1.13.41 ity of 3.412.2.7 [place].3.698 [place] .3.600138 084.8 .8 [facility] 2023-01-11 2023-01-11 Telephone Castillo, 1.2.840.1 [id number] 1103 [id number] Univers 00:00:00 00:00:00 Felisa Costa 21512.1.1 ity of 3.412.2.7 [place] .3.172230 MD Soares8 [facility] 2023-01-08 2023-01-08 Outpatient EL KENYA LANCASTER MDA [facility] [id number] 13:23:30 14:05:33 [facility] 2023-01-08 2023-01-08 Nutrition Kenya Lancaster. 1.2.840.1 [id number] Univers 10:00:00 10:47:33 Lian Jaramillo 48293.1.1 ity of 3.412.2.7 [place] .3.794640 MD Blair [facility] 2023-01-08 2023-01-08 Nutrition Kenya Arechiga. 1.2.840.1 [id number] Univers 10:00:00 10:47:33 Lian Jaramillo 50946.1.1 ity of 3.412.2.7 [place] .3.886425 MD Soares8 [facility] 2023-01-08 2023-01-08 Travel 1.2.840.1 1.2.607.776 2502 [id number] Univers 00:00:00 00:00:00 22689.1.1 350.1.13.41 ity of 3.412.2.7 [place].3.698 [place] .3.402004 084.8 MD Soares8 [facility] 2023-01-08 2023-01-08 Travel 1.2.840.1 1.2.333.369 6855 [id number] Univers 00:00:00 00:00:00 48587.1.1 350.1.13.41 ity of 3.412.2.7 [place]7.3.698 [place] .3.525992 084.8 MD [facility] 2023-01-07 2023-01-07 Infusion Lemuel, 1.2.840.1 [id number] [id number] Univers 09:00:00 13:58:13 Lorena 59617.1.1 ity of Kayla 3.412.2.7 [place] .3.051284 MD [facility] 2023-01-07 2023-01-07 Infusion KYLAH Hdez, 1.2.840.1 [id number] [id number] Univers 09:00:00 13:58:13 Lorena 80632.1.1 ity of Kayla 3.412.2.7 [place] .3.297487 MD [facility] 2023-01-07 2023-01-07 Follow-Up Hdez, 1.2.840.1 [id number] 1102 [id number] Univers 08:40:00 09:41:57 Lorena 74430.1.1 ity of Kayla 3.412.2.7 [place] .3.573793 MD Soares8 [facility] 2023-01-07 2023-01-07 Follow-Up KYLAH Hdez, 1.2.840.1 [id number] 1102 [id number] Univers 08:40:00 09:41:57 Lorena 97259.1.1 ity of Kayla 3.412.2.7 [place] .3.927124 MD [facility] 2023-01-07 2023-01-07 Outpatient KENYA ARECHIGA [facility] [id number] 09:08:41 09:08:41 Laurichrissy olivier 2023-01-07 2023-01-07 Outpatient KYLAH HDEZ [facility] [id number] 08:18:38 08:32:37 LORENA olivier 2023-01-07 2023-01-07 Travel 1.2.840.1 1.2.999.267 9700 [id number] [facility] 00:00:00 00:00:00 07808.1.1 350.1.13.41 ity of 3.412.2.7 [place].3.698 [place] .3.569432 084.8 .8 [facility] 2023-01-07 2023-01-07 Travel 1.2.840.1 1.2.814.243 3626 [id number] [facility] 00:00:00 00:00:00 46702.1.1 350.1.13.41 ity of 3.412.2.7 [place]7.3.698 [place] .3.483329 084.8 MD Soares8 [facility] 2023-01-06 2023-01-06 Outpatient KENYA ARECHIGA [facility] [id number] 14:37:02 14:59:48 Laurichrissy olivier 2023-01-06 2023-01-06 Infusion Hdez, 1.2.840.1 [id number] Univers 11:00:00 13:00:00 Lorena 57192.1.1 ity of Kayla 3.412.2.7 [place] .3.644291 MD Soares8 Liane olivier [facility] 2023-01-06 2023-01-06 Infusion KYLAH Hdez, 1.2.840.1 [id number] [facility] 11:00:00 13:00:00 Lorena 88798.1.1 ity of Kayla 3.412.2.7 [place] .3.065633 MD Soares8 [facility] 2023-01-06 2023-01-06 Travel 1.2.840.1 1.2.333.853 2783 [id number] Univers 00:00:00 00:00:00 91504.1.1 350.1.13.41 ity of 3.412.2.7 [place]7.3.698 [place] .3.156411 084.8 MD [facility] 2023-01-06 2023-01-06 Travel 1.2.840.1 1.2.927.835 8781 [id number] [facility] 00:00:00 00:00:00 48560.1.1 350.1.13.41 ity of 3.412.2.7 [place].7.3.698 [place] .3.028544 084.8 MD [facility] 2023-01-05 2023-01-05 Outpatient KENYA ARECHIGA [facility] [id number] 13:16:48 13:59:03 [facility] 2023-01-05 2023-01-05 Travel 1.2.840.1 1.2.029.973 4726 [id number] [facility] 00:00:00 00:00:00 90263.1.1 350.1.13.41 ity of 3.412.2.7 [place].7.3.698 [place] .3.672927 084.8 MD [facility] 2023-01-05 2023-01-05 Travel 1.2.840.1 1.2.060.635 0163 [id number] [facility] 00:00:00 00:00:00 03026.1.1 350.1.13.41 ity of 3.412.2.7 [place].7.3.698 [place] .3.311153 084.8 MD [facility] 2023-01-04 2023-01-04 Dwayne Hdez 1.2.840.1 [id number] [id number] [facility] 10:45:00 14:51:21 Lorena 92819.1.1 ity of Kayla 3.412.2.7 [place] .3.286603 MD [facility] 2023-01-042023-01-04 Infusion KYLAH Hdez, 1.2.840.1 [id number] [id number] Univers 10:45:00 14:51:21 Lorena 61636.1.1 ity of Kayla 3.412.2.7 [place] .3.881746 MD [facility] 2023-01-04 2023-01-04 Clinical Luu, 1.2.840.1 [id number] [facility] 14:00:00 14:25:20 Support Winter 28712.1.1 ity of Gini 3.412.2.7 [place] .3.489846 MD Soares8 [facility] 2023-01-04 2023-01-04 Clinical Jus, 1.2.840.1 [id number] [id number] [facility] 14:00:00 14:25:20 Support Winter 15106.1.1 ity of Gini 3.412.2.7 [place] .3.109583 MD [facility] 2023-01-04 2023-01-04 Outpatient KENYA ARECHIGA [facility] MDA [id number] 13:10:05 13:43:01 [facility] 2023-01-04 2023-01-04 Travel 1.2.840.1 1.2.761.036 3124 [id number] Univers 00:00:00 00:00:00 95026.1.1 350.1.13.41 ity of 3.412.2.7 [place].7.3.698 [place] .3.559710 084.8 MD [facility] 2023-01-04 2023-01-04 Travel 1.2.840.1 1.2.069.758 3483 [id number] Univers 00:00:00 00:00:00 51412.1.1 350.1.13.41 ity of 3.412.2.7 2.2.7.3.698 [place] .3.461545 084.8 MD [facility] 2023-01-01 2023-01-01 Infusion Hdez, 1.2.840.1 [id number] Univers 09:00:00 14:20:57 Lorena 56503.1.1 ity of Kayla 3.412.2.7 [place] .3.562875 MD [facility] 2023-01-01 2023-01-01 Infusion KYLAH Hdez, 1.2.840.1 [id number] 01201 Univers 09:00:00 14:20:57 Lorena 82094.1.1 ity of Kayla 3.412.2.7 [place] .3.367135 MD [facility] 2023-01-01 2023-01-01 Outpatient KYLAH LANCASTERKENYA MDA MDA [id number] 13:31:26 14:06:59 Lauri olivier 2023-01-01 2023-01-01 Follow-Up Kenny Power, 1.2.840.1 [id number] Univers 08:40:00 09:31:03 Celyne 92744.1.1 ity of 3.412.2.7 [place] .3.966926 MD [facility] 2023-01-01 2023-01-01 Follow-Up KYLAH Power, 1.2.840.1 [id number] Univers 08:40:00 09:31:03 Celyne 04282.1.1 ity of 3.412.2.7 [place] .3.405337 MD [facility] 2023-01-01 2023-01-01 Outpatient KYLAH HDEZ MDA MDA [id number] 08:19:22 08:27:50 LORENA Ruelas so soy 2023-01-01 2023-01-01 oRhith Guardado, 1.2.840.1 [id number] Univers 00:00:00 00:00:00 Brittni Benjamin 63012.1.1 ity of 3.412.2.7 [place] .3.440686 MD [facility] 2023-01-01 2023-01-01 Travel 1.2.840.1 1.2.314.713 8734 [id number] Univers 00:00:00 00:00:00 54858.1.1 350.1.13.41 ity of 3.412.2.7 2.[place].7.3.698 [place] .3.727635 084.8 MD Soares8 [facility] 2023-01-01 2023-01-01 Rohith Guardado, 1.2.840.1 [id number] Univers 00:00:00 00:00:00 Brittni Benjamin 15233.1.1 ity of 3.412.2.7 [place] .3.126633 MD Soares8 [facility] 2023-01-01 2023-01-01 Travel 1.2.840.1 1.2.448.475 5100 [id number] Univers 00:00:00 00:00:00 48839.1.1 350.1.13.41 ity of 3.412.2.7 2.2.7.3.698 [place] .3.795699 084.8 MD [facility] 2022-12-31 2022-12-31 Telephone Doyle, 1.2.840.1 [id number] 1103 [id number] Univers 00:00:00 00:00:00 Tita Mayorga 26456.1.1 ity of 3.412.2.7 [place] .3.008665 MD [facility] 2022-12-31 2022-12-31 Anabell Hdez 1.2.840.1 [id number] Univers 00:00:00 00:00:00 Only Lorena 09152.1.1 ity of Kayla 3.412.2.7 [place] .3.477739 MD Soares8 [facility] 2022-12-31 2022-12-31 Telephone Doyle, 1.2.840.1 [id number] 1103 [id number] Univers 00:00:00 00:00:00 Tita Mayorga 34838.1.1 ity of 3.412.2.7 [place] .3.629389 MD [facility] 2022-12-31 2022-12-31 Anabell Hdez 1.2.840.1 [id number] Univers 00:00:00 00:00:00 Only Lorena 67445.1.1 ity of Kayla 3.412.2.7 [place] .3.214212 MD [facility] 2022-12-30 2022-12-30 [facility], 1.2.840.1 [id number] [id number] Univers 09:33:09 23:59:00 Encounter Miguel Fernandez 30983.1.1 ity of 3.412.2.7 [place] .3.124269 MD [facility] 2022-12-30 2022-12-30 [facility], 1.2.840.1 [id number] 76589 Univers 09:33:09 23:59:00 Encounter Miguel Fernandze 50065.1.1 ity of 3.412.2.7 [place] .3.776405 MD [facility] 2022-12-30 2022-12-30 Outpatient KENYA ARECHIGA [facility] [id number] 13:48:18 14:15:54 [facility] 2022-12-30 2022-12-30 Travel 1.2.840.1 1.2.582.453 8881 [id number] Univers 00:00:00 00:00:00 99050.1.1 350.1.13.41 ity of 3.412.2.7 2.2.7.3.698 [place] .3.151345 084.8 MD [facility] 2022-12-30 2022-12-30 Travel 1.2.840.1 1.2.221.754 5395 [id number] Univers 00:00:00 00:00:00 01872.1.1 350.1.13.41 ity of 3.412.2.7 2.[place].7.3.698 [place] .3.785608 084.8 MD [facility] 2022-12-29 2022-12-29 [facility].2.840.1 [id number] Univers 08:00:00 23:59:00 Encounter Suzanne 89451.1.1 it y of 3.412.2.7 [place] .3.261806 MD [facility] 2022-12-29 2022-12-29 [facility], 1.2.840.1 [id number] Univers 08:00:00 23:59:00 Encounter Suzanne 95181.1.1 it y of 3.412.2.7 [place] .3.270649 MD [facility] 2022-12-29 2022-12-29 Outpatient KENYA ARECHIGA [facility] MDA [id number] 13:04:30 13:32:42 [facility] 2022-12-29 2022-12-29 Travel 1.2.840.1 1.2.289.345 1159 [id number] Univers 00:00:00 00:00:00 25751.1.1 350.1.13.41 ity of 3.412.2.7 2.[place].7.3.698 [place] .3.058088 084.8 MD [facility] 2022-12-29 2022-12-29 Travel 1.2.840.1 1.2.283.396 6844 [id number] Univers 00:00:00 00:00:00 90116.1.1 350.1.13.41 ity of 3.412.2.7 2.2.7.3.698 [place] .3.925935 084.8 MD [facility] 2022-12-28 2022-12-28 [facility], 1.2.840.1 [id number] Univers 14:00:00 15:17:09 Support Winter 45161.1.1 ity of Gini 3.412.2.7 [place] .3.436601 MD [facility] 2022-12-28 2022-12-28 Clinical [facility], 1.2.840.1 [id number] Univers 14:00:00 15:17:09 Support Winter 53477.1.1 ity of Gini 3.412.2.7 [place] .3.242975 MD [facility] 2022-12-28 2022-12-28 Outpatient MANUEL ARECHIGAVINEET BURGER [facility] [id number] 13:27:37 14:08:09 [facility] 2022-12-28 2022-12-28 Nutrition Tonny Keyna Johnson. 1.2.840.1 [id number] Univers 10:00:00 10:53:45 Lian Jaramillo 40416.1.1 ity of 3.412.2.7 [place] .3.481244 MD Soares8 [facility] 2022-12-28 2022-12-28 Nutrition Kenya Arechiga. 1.2.840.1 [id number] Univers 10:00:00 10:53:45 Lian Jaramillo 41938.1.1 ity of 3.412.2.7 [place] .3.143252 MD Soares8 [facility] 2022-12-28 2022-12-28 Travel 1.2.840.1 1.2.443.983 1133 [id number] Univers 00:00:00 00:00:00 85267.1.1 350.1.13.41 ity of 3.412.2.7 2.2.7.3.698 [place] .3.226014 084.8 MD [facility] 2022-12-28 2022-12-28 Travel 1.2.840.1 1.2.886.493 1337 [id number] Univers 00:00:00 00:00:00 48109.1.1 350.1.13.41 ity of 3.412.2.7 2.2.7.3.698 [place] .3.267143 084.8 MD Soares8 [facility] 2022-12-25 2022-12-25 Outpatient KYLAH LANCASTER KENYA BURGER MDA [id number] 14:06:37 15:08:07 [facility] 2022-12-25 2022-12-25 Travel 1.2.840.1 1.2.294.355 5758 [id number] Univers 00:00:00 00:00:00 09348.1.1 350.1.13.41 ity of 3.412.2.7 2.2.7.3.698 [place] .3.117897 084.8 MD [facility] 2022-12-25 2022-12-25 Travel 1.2.840.1 1.2.842.020 3219 [id number] Univers 00:00:00 00:00:00 30296.1.1 350.1.13.41 ity of 3.412.2.7 2.2.7.3.698 [place] .3.321560 084.8 MD [facility] 2022-12-24 2022-12-24 Infusion Lemuel, 1.2.840.1 [id number] [id number] Univers 08:45:00 15:46:35 Lorena 12513.1.1 ity of Kayla 3.412.2.7 [place] .3.105176 MD Soares8 [facility] 2022-12-24 2022-12-24 Infusion KYLAH Hdez, 1.2.840.1 [id number] 06539 Univers 08:45:00 15:46:35 Lorena 99496.1.1 ity of Kayla 3.412.2.7 [place] .3.493075 MD [facility] 2022-12-24 2022-12-24 Outpatient KENYA ARECHIGA [facility] [id number] 13:51:59 14:40:52 Lauri cox [place] 2022-12-24 2022-12-24 Follow-Up Kenny Power, 1.2.840.1 [id number] Univers 08:20:00 10:15:28 Celyne 25185.1.1 ity of 3.412.2.7 [place] .3.780862 MD [facility] 2022-12-24 2022-12-24 Follow-Up KYLAH Power, 1.2.840.1 [id number] Univers 08:20:00 10:15:28 Celyne 25767.1.1 ity of 3.412.2.7 [place] .3.359241 MD Soares8 [facility] 2022-12-24 2022-12-24 Outpatient KYLAH HDEZ MDA MDA [id number] 09:15:48 09:27:18 LORENA suarez 2022-12-24 2022-12-24 Telephone Castillo, 1.2.840.1 [id number] [id number] Univers 00:00:00 00:00:00 Felisa Costa 32064.1.1 ity of 3.412.2.7 [place] .3.201508 MD Soares8 [facility] 2022-12-24 2022-12-24 Telephone Kenya Lanacster 1.2.840.1 [id number] Univers 00:00:00 00:00:00 YRodger 82313.1.1 ity of 3.412.2.7 [place] .3.040255 MD [facility] 2022-12-24 2022-12-24 Telephone Carnew, 1.2.840.1 [id number] 1103 [id number] Univers 00:00:00 00:00:00 Tita Mayorga 52448.1.1 ity of 3.412.2.7 [place] .3.063486 MD Soares8 [facility] 2022-12-24 2022-12-24 Telephone Carnew, 1.2.840.1 [id number] 1103 [id number] Univers 00:00:00 00:00:00 Tita Mayorga 55916.1.1 ity of 3.412.2.7 [place] .3.090333 MD Soares8 [facility] 2022-12-24 2022-12-24 Telephone [facility], 1.2.840.1 [id number] Univers 00:00:00 00:00:00 Vaibhav 78415.1.1 ity of 3.412.2.7 [place] .3.210451 MD [facility] 2022-12-24 2022-12-24 Travel 1.2.840.1 1.2.093.905 9890 [id number] Univers 00:00:00 00:00:00 72478.1.1 350.1.13.41 ity of 3.412.2.7 2.2.7.3.698 [place] .3.829009 084.8 MD [facility] 2022-12-24 2022-12-24 Orders Kenny Power, 1.2.840.1 [id number] Univers 00:00:00 00:00:00 Only Celarturo 20615.1.1 ity of 3.412.2.7 [place] .3.116992 MD Soarse8 [facility] 2022-12-24 2022-12-24 Rohith Vargas [facility] 1.2.840.114 [id number] Univers 00:00:00 00:00:00 [facility] 350.1.13.10 it y of [facility] 4.2.7.2.686 Frankie as JAVIER?BLEA [id number] [address] MEDICAL OFFICE [facility]ILDING 2022-12-24 2022-12-24 Telephone Jonathan 1.2.840.1 [id number] 1103 [id number] Univers 00:00:00 00:00:00 Felisa Costa 38997.1.1 ity of 3.412.2.7 [place] .3.775420 MD [facility] 2022-12-24 2022-12-24 Telephone Kenya Lancaster 1.2.840.1 [id number] Univers 00:00:00 00:00:00 Y. 50266.1.1 ity of 3.412.2.7 [place] .3.380557 MD [facility] 2022-12-24 2022-12-24 Telephone Doyle, 1.2.840.1 [id number] 1103 [id number] Univers 00:00:00 00:00:00 Tita Mayorga 43020.1.1 ity of 3.412.2.7 [place] .3.819746 MD [facility] 2022-12-24 2022-12-24 Telephone Doyle, 1.2.840.1 [id number] 1103 [id number] Univers 00:00:00 00:00:00 Tita AlejandreRodger 83912.1.1 ity of 3.412.2.7 [place] .3.329356 MD [facility] 2022-12-24 2022-12-24 [facility], 1.2.840.1 [id number] Univers 00:00:00 00:00:00 Vaibhav 59167.1.1 ity of 3.412.2.7 [place] .3.738970 MD [facility] 2022-12-24 2022-12-24 Travel 1.2.840.1 1.2.150.677 6059 [id number] Univers 00:00:00 00:00:00 28049.1.1 350.1.13.41 ity of 3.412.2.7 2.[place]7.3.698 [place] .3.770427 084.8 MD [facility] 2022-12-24 2022-12-24 [facility], 1.2.840.1 [id number] Univers 00:00:00 00:00:00 Only Vaibhav 00190.1.1 ity of 3.412.2.7 [place] .3.680829 MD [facility] 2022-12-23 2022-12-23 [facility], 1.2.840.1 [id number] Univers 09:30:00 23:59:00 Encounter Otilia 05731.1.1 it y of 3.412.2.7 [place] .3.039650 MD Soares8 [facility] 2022-12-23 2022-12-23 [facility], 1.2.840.1 [id number] Univers 09:30:00 23:59:00 Encounter Otilia 99799.1.1 it y of 3.412.2.7 [place] .3.098643 MD [facility] 2022-12-23 2022-12-23 Outpatient KENYA ARECHIGA MDA MDA [id number] 13:50:34 14:48:40 Lauri olivier 2022-12-23 2022-12-23 Clinical Winter Luuley 1.2.840.9 [id number] Univers 10:15:00 10:30:00 Support Dony Calhoun 31456.1.1 ity of 3.412.2.7 [place] .3.395071 MD [facility]8 [facility] 2022-12-23 2022-12-23 Clinical Beka Luutim Rubalcava 1.2.840.0 [id number] Univers 10:15:00 10:30:00 Support Dony Calhoun 86966.1.1 ity of 3.412.2.7 [place] .3.759500 MD [facility]8 [facility] 2022-12-23 2022-12-23 Documentat Luu, 1.2.840.1 [id number] Univers 00:00:00 00:00:00 jennifer Max 30524.1.1 ity of Gini 3.412.2.7 [place] .3.505504 MD [facility]8 [facility] 2022-12-23 2022-12-23 Telephone Kenny Power, 1.2.840.1 [id number] Univers 00:00:00 00:00:00 Vaibhav 83937.1.1 ity of 3.412.2.7 [place] .3.559857 MD [facility]8 [facility] 2022-12-23 2022-12-23 Telephone Doyle, 1.2.840.1 [id number] Univers 00:00:00 00:00:00 Tita Mayorga 57565.1.1 ity of 3.412.2.7 [place] .3.080170 MD [facility] 2022-12-23 2022-12-23 Travel 1.2.840.1 1.2.021.906 [id number] Univers 00:00:00 00:00:00 46259.1.1 350.1.13.41 ity of 3.412.2.[place]3.698 [place] .3.865[place] 084.8 MD [facility] 2022-12-23 2022-12-23 Orders Lemuel, 1.2.840.1 [id number] Univers 00:00:00 00:00:00 Only Lorena 79634.1.1 ity of Kayla 3.412.2.7 [place] .3.581235 MD [facility]8 [facility] 2022-12-23 2022-12-23 Documentat Luu, 1.2.840.1 [id number] Univers 00:00:00 00:00:00 ion Winter 97243.1.1 ity of Gini 3.412.2.7 [place] .3.385618 MD [facility]8 [facility] 2022-12-23 2022-12-23 Telephone Kenny Power, 1.2.840.1 [id number] Univers 00:00:00 00:00:00 Vaibhav 87596.1.1 ity of 3.412.2.7 [place] .3.545644 MD [facility] 2022-12-23 2022-12-23 Telephone Doyle, 1.2.840.1 [id number] Univers 00:00:00 00:00:00 Tita L. 19582.1.1 ity of 3.412.2.7 [place] .3.123182 MD [facility] 2022-12-23 2022-12-23 Travel 1.2.840.1 1.2.307.036 [id number] Univers 00:00:00 00:00:00 54221.1.1 350.1.13.41 ity of 3.412.2.[place]3.698 [place] .3.103216 084.8 MD [facility] 2022-12-23 2022-12-23 Orders Lemuel, 1.2.840.1 [id number] Univers 00:00:00 00:00:00 Only Lorena 81138.1.1 ity of Kayla 3.412.2.7 [place] .3.888831 MD [facility]8 [facility] 2022-12-18 2022-12-18 Orders Lan, 1.2.840.1 [id number] Univers 00:00:00 00:00:00 Only Lindy 26109.1.1 ity of Ashleigh 3.412.2.7 [place] .3.708625 MD [facility]8 [facility] 2022-12-18 2022-12-18 Orders Lan, 1.2.840.1 [id number] Univers 00:00:00 00:00:00 Only Lindy 37334.1.1 ity of [place] 3.412.2.7 [place] .3.136007 MD Soares8 [facility] 2022-12-18 2022-12-18 Orders [place], 1.2.840.1 [id number] Univers 00:00:00 00:00:00 Only Lindy 43617.1.1 ity of [place] 3.412.2.7 [place] .3.779862 MD Soares8 [facility] 2022-12-18 2022-12-18 Orders Lan, 1.2.840.1 [id number] Univers 00:00:00 00:00:00 Only Lindy 70017.1.1 ity of [place] 3.412.2.7 [place] .3.297058 MD Soares8 [facility] 2022-12-17 2022-12-17 Clinical Kenya [place] 1.2.840.1 [id number] Univers 08:00:00 10:48:06 Support Maria Luz Cochran 36347.1.1 ity of 3.412.2.7 [place] .3.352575 MD [facility]ares8 [facility] 2022-12-17 2022-12-17 Clinical Kenya Arechiga 1.2.840.1 [id number] Univers 08:00:00 10:48:06 Support Maria Luz Cochran 32396.1.1 ity of 3.412.2.7 [place] .3.122842 MD [facility] [place] 2022-12-17 2022-12-17 Outpatient [facility] [id number] MD 08:37:01 10:43:17 WINTER olivier 2022-12-17 2022-12-17 Documentat Grant, 1.2.840.1 [id number] Univers 00:00:00 00:00:00 jennifer Max 08733.1.1 ity of Gini 3.412.2.7 [place] .3.313346 MD [facility] 2022-12-17 2022-12-17 Documentat [place], 1.2.840.1 [id number] Univers 00:00:00 00:00:00 jennifer Max 33056.1.1 ity of [place] 3.412.2.7 [place] .3.143702 MD [facility] 2022-12-17 2022-12-17 Documentat Grant, 1.2.840.1 [id number] Univers 00:00:00 00:00:00 jennifer Max 79075.1.1 ity of Gini 3.412.2.7 [place] .3.593903 MD [facility] 2022-12-17 2022-12-17 Anabell Hdez, 1.2.840.1 [id number] Univers 00:00:00 00:00:00 Only Lorena 22271.1.1 ity of Kayla 3.412.2.7 [place] .3.465266 MD [facility] 2022-12-17 2022-12-17 Travel 1.2.840.1 1.2.170.924 [id number] Univers 00:00:00 00:00:00 26298.1.1 350.1.13.41 ity of 3.412.2.7 [place].3.698 [place] 084.8 MD [facility] 2022-12-17 2022-12-17 [facility] Luu, 1.2.840.1 [id number] Univers 00:00:00 00:00:00 Only Winter 28523.1.1 ity of Gini 3.412.2.7 [place] .3.918772 MD [facility] 2022-12-17 2022-12-17 Documentat Grant, 1.2.840.1 [id number] Univers 00:00:00 00:00:00 ion Winter 24999.1.1 ity of Gini 3.412.2.7 [place] .3.638173 MD [facility] 2022-12-17 2022-12-17 [facility] 1.2.840.1 [id number] 088 [id number] Univers 00:00:00 00:00:00 ion Winter 02417.1.1 ity of Gini 3.412.2.7 [place] .3.640506 MD [facility] 2022-12-17 2022-12-17 [facility], 1.2.840.1 [id number] 796 [id number] Univers 00:00:00 00:00:00 ion Winter 81683.1.1 ity of Gini 3.412.2.7 [place] .3.501539 MD [facility] 2022-12-17 2022-12-17 Anabell Hdez, 1.2.840.1 [id number] 1475 Univers 00:00:00 00:00:00 Only Lorena 04199.1.1 ity of Kayla 3.412.2.7 [place] .3.176097 MD [facility] 2022-12-17 2022-12-17 Travel 1.2.840.1 1.2.780.494 0006 [id number] Univers 00:00:00 00:00:00 49387.1.1 350.1.13.41 ity of 3.412.2.7 [place]7.3.698 [place] .3.675617 084.8 MD [facility] 2022-12-17 2022-12-17 [facility], 1.2.840.1 [id number] Univers 00:00:00 00:00:00 Only Winter 91584.1.1 ity of Gini 3.412.2.7 [place] .3.975466 MD [facility]8 [facility] 2022-12-16 2022-12-16 [facility], 1.2.840.1 [id number] 1436 Univers 00:00:00 00:00:00 Only Winter 70474.1.1 ity of Gini 3.412.2.7 [place] .3.121382 MD [facility]ares8 [facility] 2022-12-16 2022-12-16 Telephone Castillo, 1.2.840.1 [id number] 1102 [id number] Univers 00:00:00 00:00:00 Felisa M 18562.1.1 ity of 3.412.2.7 [place] .3.828040 MD [facility]8 [facility] 2022-12-16 2022-12-16 Telephone Rosmery Dickinson 1.2.840.1 [id number] 1 [id number] Univers 00:00:00 00:00:00 M 48555.1.1 ity of 3.412.2.7 [place] .3.687971 MD [facility]8 [facility] 2022-12-16 2022-12-16 [facility], 1.2.840.1 [id number] 3150 Univers 00:00:00 00:00:00 Only Winter 35684.1.1 ity of Gini 3.412.2.7 [place] .3.241122 MD [facility]ares8 [facility] 2022-12-16 2022-12-16 Telephone Castillo, 1.2.840.1 [id number] 1102 [id number] Univers 00:00:00 00:00:00 Felisa M 73920.1.1 ity of 3.412.2.7 [place] .3.563616 MD [facility]ares8 [facility] 2022-12-16 2022-12-16 Telephone Rosmery Dickinson 1.2.840.1 [id number] 1 [id number] Univers 00:00:00 00:00:00 M 57523.1.1 ity of 3.412.2.7 [place] .3.691354 .8 [facility] 2022-12-15 2022-12-15 [facility] [place] 1.2.840.1 [id number] 1 [id number] Univers 08:42:55 23:59:00 Encounter Y. 08580.1.1 it y of 3.412.2.7 [place] .3.433505 .8 [facility] 2022-12-15 2022-12-15 [facility] [place] 1.2.840.1 [id number] 1 [id number] Univers 08:42:55 23:59:00 Encounter Y. 46099.1.1 it y of 3.412.2.7 [place] .3.821390 .8 [facility] 2022-12-09 2022-12-15 [facility] Mer Milian 1.2.840.1 [id number] Univers 21:01:00 19:30:00 Encounter Roberto Carlos Walsh 57936.1.1 ity of Regulo, Abelino-Izzy 3.412.2.7 [place] Altjaycee, Graciela .3.549634 Jaycee Muñoz .8 Travis Hebert, Derrick Cancer Ordaz, Cerena Ce [facility] 2022-12-09 2022-12-15 [facility] MaicolMer stinson 1.2.840.1 [id number] Univers 21:01:00 19:30:00 Encounter Roberto Carlos Walsh 36995.1.1 ity of Regulo, Abelino-Izzy 3.412.2.7 [place] Altay, Graciela .3.544897 Jaycee Muñoz .8 Travis Hebert, Derrick Cancer Ordaz, Cerena Ce [facility] 2022-12-15 2022-12-15 Outpatient KYLAH BAI MDA MDA [id number] 08:39:37 15:02:22 RON olivier 2022-12-152022-12-15 [facility] KYLAH DAVIS TAO [facility] [id number] MD 09:34:01 10:58:12 FAREED [facility] 2022-12-15 2022-12-15 Rohith Montenegro, 1.2.840.1 [id number] Univers 00:00:00 00:00:00 Lindy 69362.1.1 ity of Ashleigh 3.412.2.7 [place] .3.050673 MD Soares8 [facility] 2022-12-15 2022-12-15 Orders Koyyalagunt 1.2.840.1 [id number] 11 [id number] Univers 00:00:00 00:00:00 Only a, 64548.1.1 ity of [place].412.2.7 [place] .3.057025 MD Soares8 [facility] 2022-12-15 2022-12-15 Orders Koyyalagunt 1.2.840.1 [id number] 11 [id number] Univers 00:00:00 00:00:00 Only a, 72365.1.1 ity of [place].412.2.7 [place] .3.685217 MD Soares8 [facility] 2022-12-15 2022-12-15 Orders Razmandi, 1.2.840.1 [id number] 1102 [id number] Univers 00:00:00 00:00:00 Only Maya 18396.1.1 ity of 3.412.2.7 [place] .3.640799 MD Soares8 [facility] 2022-12-15 2022-12-15 Ophth Exam Razmandi, 1.2.840.1 [id number] 1 [id number] Univers 00:00:00 00:00:00 Maya 24990.1.1 ity of 3.412.2.7 [place] .3.431671 MD [facility]ares8 [facility] 2022-12-15 2022-12-15 Rohith Montenegro, 1.2.840.1 [id number] Univers 00:00:00 00:00:00 Lindy 04605.1.1 ity of Ashleigh 3.412.2.7 [place] .3.995776 MD [facility] 2022-12-15 2022-12-15 Orders Koyyalagunt 1.2.840.1 [id number] 11 [id number] Univers 00:00:00 00:00:00 Only a, 86467.1.1 ity of [place].2.7 [place] .3.140812 MD Soares8 [facility] 2022-12-15 2022-12-15 Orders Koyyalagunt 1.2.840.1 [id number] 11 [id number] Univers 00:00:00 00:00:00 Only a, 80909.1.1 ity of [place].412.2.7 [place] .3.522391 MD Soares8 [facility] 2022-12-15 2022-12-15 Orders Shaziai, 1.2.840.1 [id number] 1102 [id number] Univers 00:00:00 00:00:00 Only Maya 86789.1.1 ity of 3.412.2.7 [place] .3.560008 MD Soares8 [facility] 2022-12-15 2022-12-15 Ophth Exam Dawson, 1.2.840.1 [id number] 1 [id number] Univers 00:00:00 00:00:00 Maya 06141.1.1 ity of 3.412.2.7 [place] .3.647074 MD Soares8 [facility] 2022-12-14 2022-12-14 Inpatient KENYA ARECHIGA [facility] [id number] 17:21:25 17:21:31 [facility] 2022-12-14 2022-12-14 Orders Martínez 1.2.840.1 [id number] Univers 00:00:00 00:00:00 Only Wilder 55938.1.1 ity of 3.412.2.7 [place] .3.885455 MD [facility] 2022-12-14 2022-12-14 Orders Martínez, 1.2.840.1 [id number] Univers 00:00:00 00:00:00 Only Wilder 45371.1.1 ity of 3.412.2.7 [place] .3.683902 MD [facility] 2022-12-11 2022-12-11 [facility] KENYA LANCASTER [facility] [id number] 11:49:45 11:49:48 [facility] 2022-12-11 2022-12-11 Telephone Gomez, 1.2.840.1 [id number] 1102 [id number] Univers 00:00:00 00:00:00 Maridel P 77912.1.1 it y of 3.412.2.7 [place] .3.981284 MD [facility]8 [facility] 2022-12-11 2022-12-11 Telephone Gomez, 1.2.840.1 [id number] 1102 [id number] Univers 00:00:00 00:00:00 Maridel P 73780.1.1 it y of 3.412.2.7 [place] .3.938767 MD [facility] 2022-12-10 2022-12-10 Travel 1.2.840.1 1.2.048.541 0283 147986 Univers 00:00:00 00:00:00 40840.1.1 350.1.13.41 ity of 3.412.2.7 2.2.7.3.698 [place] .3.307399 084.8 MD [facility] 2022-12-10 2022-12-10 Orders Martínez, 1.2.840.1 [id number] 7530 Univers 00:00:00 00:00:00 Only Wilder 73376.1.1 ity of 3.412.2.7 [place] .3.090584 MD [facility] 2022-12-10 2022-12-10 Travel 1.2.840.1 1.2.411.389 1031 [id number] Univers 00:00:00 00:00:00 89220.1.1 350.1.13.41 ity of 3.412.2.7 2.2.7.3.698 [place] .3.509305 084.8 MD Soares8 [facility] 2022-12-10 2022-12-10 Orders Martínez, 1.2.840.1 [id number] Univers 00:00:00 00:00:00 Only Wilder 88279.1.1 ity of 3.412.2.7 [place] .3.251623 MD Soares8 [facility] 2022-12-08 2022-12-08 Telephone [place], 1.2.840.1 [id number] 070 [id number] Univers 00:00:00 00:00:00 Lindy 89285.1.1 ity of Ashleigh 3.412.2.7 [place] .3.377475 MD Soares8 [facility] 2022-12-08 2022-12-08 Orders Hdez, 1.2.840.1 [id number] 2245 Univers 00:00:00 00:00:00 Only Lorena 14785.1.1 ity of Kayla 3.412.2.7 [place] .3.851886 MD Soares8 [facility] 2022-12-08 2022-12-08 Telephone [place], 1.2.840.1 [id number] Univers 00:00:00 00:00:00 Lindy 84266.1.1 ity of Ashleigh 3.412.2.7 [place] .3.658033 MD Soares8 [facility] 2022-12-08 2022-12-08 Orders Hdez, 1.2.840.1 [id number] Univers 00:00:00 00:00:00 Only Lorena 97779.1.1 ity of Kayla 3.412.2.7 [place] .3.241752 MD [facility] 2022-12-05 2022-12-05 Telephone Luu, 1.2.840.1 [id number] 1102 [id number] Univers 00:00:00 00:00:00 Winter 38880.1.1 ity of Gini 3.412.2.7 [place] .3.848866 MD Soares8 [facility] 2022-12-05 2022-12-05 [facility], 1.2.840.1 [id number] 0773 Univers 00:00:00 00:00:00 Only Winter 44826.1.1 ity of Gini 3.412.2.7 [place] .3.094661 MD Soares8 [facility] 2022-12-05 2022-12-05 [facility], 1.2.840.1 [id number] 1102 [id number] Univers 00:00:00 00:00:00 Winter 07018.1.1 ity of Gini 3.412.2.7 [place] .3.997253 MD Soares8 [facility] 2022-12-05 2022-12-05 [facility], 1.2.840.1 [id number] Univers 00:00:00 00:00:00 Only Winter 16807.1.1 ity of Gini 3.412.2.7 [place] .3.406800 MD Soares8 [facility] 2022-12-04 2022-12-04 [facility] 1.2.840 .1 [id number] Univers 10:55:00 23:59:00 Encounter Lorena Hdez 31448.1.1 ity of 3.412.2.7 [place] .3.821196 MD [facility] 2022-12-04 2022-12-04 [facility] .1 [id number] Univers 10:55:00 23:59:00 Encounter Lorena Hdez 40889.1.1 ity of 3.412.2.7 [place] .3.705853 MD [facility] 2022-12-04 2022-12-04 Telephone Antonella, 1.2.840.1 [id number] 11 [id number] Univers 00:00:00 00:00:00 Red [place] 95427.1.1 it y of 3.412.2.7 [place] .3.608567 MD [facility]8 [facility] 2022-12-04 2022-12-04 Multidisci Antonella, 1.2.840.1 [id number] 1 [id number] Univers 00:00:00 00:00:00 dali [place] 62186.1.1 it y of Visit 3.412.2.7 [place] .3.892339 MD [facility]ares8 [facility] 2022-12-04 2022-12-04 Telephone Dimas, 1.2.840.1 [id number] 11 [id number] Univers 00:00:00 00:00:00 Maria Luz Lund 61274.1.1 ity of 3.412.2.7 [place] .3.254491 MD [facility]ares8 [facility] 2022-12-04 2022-12-04 Telephone Antonella, 1.2.840.1 [id number] 11 [id number] Univers 00:00:00 00:00:00 Red [place] 52231.1.1 it y of 3.412.2.7 [place] .3.196614 MD Soares8 [facility] 2022-12-04 2022-12-04 Multidisci Antonella 1.2.840.1 [id number] 1 [id number] Univers 00:00:00 00:00:00 dali [place] 96333.1.1 it y of Visit 3.412.2.7 [place] .3.429390 MD Soares8 [facility] 2022-12-04 2022-12-04 Telephone Dimas, 1.2.840.1 [id number] 11 [id number] Univers 00:00:00 00:00:00 Maria Luz Lund 73132.1.1 ity of 3.412.2.7 [place] .3.548612 MD [facility]ares8 [facility] 2022-12-02 2022-12-02 Orders Lan 1.2.840.1 [id number] Univers 00:00:00 00:00:00 Only Lindy 67084.1.1 ity of Ashleigh 3.412.2.7 [place] .3.511133 MD [facility] 2022-12-02 2022-12-02 Orders Luu, 1.2.840.1 [id number] Univers 00:00:00 00:00:00 Only Winter 00128.1.1 ity of Gini 3.412.2.7 [place] .3.429852 MD Soares8 [facility] 2022-12-02 2022-12-02 Orders [place], 1.2.840.1 [id number] Univers 00:00:00 00:00:00 Only Lindy 29910.1.1 ity of Ashleigh 3.412.2.7 [place] .3.141740 MD Soares8 [facility] 2022-12-02 2022-12-02 [facility], 1.2.840.1 [id number] [id number] Univers 00:00:00 00:00:00 Only Winter 73409.1.1 ity of Gini 3.412.2.7 [place] .3.314495 MD [facility] 2022-11-30 2022-11-30 Ancillary Hdez, 1.2.840.1 [id number] 1102 [id number] Univers 08:15:00 10:00:00 Procedure Lorena 48829.1.1 i ty of Kayla 3.412.2.7 [place] .3.109830 MD Soares8 [facility] 2022-11-30 2022-11-30 Ancillary KYLAH Hdez, 1.2.840.1 [id number] 1102 [id number] Univers 08:15:00 10:00:00 Procedure Lorena 32460.1.1 i ty of Kayla 3.412.2.7 [place] .3.566100 MD [facility] 2022-11-30 2022-11-30 Travel 1.2.840.1 1.2.742.285 0214 442645 Univers 00:00:00 00:00:00 54884.1.1 350.1.13.41 ity of 3.412.2.7 2.2.7.3.698 [place] .3.101680 084.8 MD Soares8 [facility] 2022-11-30 2022-11-30 Travel 1.2.840.1 1.2.241.503 4229 305131 Univers 00:00:00 00:00:00 57508.1.1 350.1.13.41 ity of 3.412.2.7 2.2.7.3.698 [place] .3.715182 084.8 .8 [facility] 2022-11-27 2022-11-27 Ancillary Lan, 1.2.840.1 [id number] 948 [id number] Univers 12:00:00 14:30:00 Procedure Lindy 03815.1.1 it y of [place]leigh 3.412.2.7 [place] .3.684370 .8 [facility] 2022-11-27 2022-11-27 Ancillary KYLAH Montenegro, 1.2.840.1 [id number] 947 [id number] Univers 12:00:00 14:30:00 Procedure Lindy 48257.1.1 it y of Ashleigh 3.412.2.7 [place] .3.768790 .8 [facility] 2022-11-27 2022-11-27 Travel 1.2.840.1 1.2.894.229 7111 [id number] Univers 00:00:00 00:00:00 68662.1.1 350.1.13.41 ity of 3.412.2.7 2.2.7.3.698 [place] .3.326703 084.8 .8 [facility] 2022-11-27 2022-11-27 Travel 1.2.840.1 1.2.769.893 0382 [id number] Univers 00:00:00 00:00:00 06500.1.1 350.1.13.41 ity of 3.412.2.7 2.2.7.3.698 [place] .3.536158 084.8 MD Soares8 [facility] 2022-11-26 2022-11-26 Outpatient KYLAH HDEZ MDA MDA [id number] MD 13:07:20 13:20:48 LORENA Ruelas [facility] 2022-11-26 2022-11-26 Consult Kenny Power, 1.2.840.1 [id number] 11 [id number] Univers 11:00:00 13:02:56 Celyne 70233.1.1 ity of 3.412.2.7 [place] .3.016982 MD Soares8 [facility] 2022-11-26 2022-11-26 Consult EL Kenny Power, 1.2.840.1 [id number] 11 [id number] Univers 11:00:00 13:02:56 Celyne 67377.1.1 ity of 3.412.2.7 [place] .3.203182 MD Soares8 [facility] 2022-11-26 2022-11-26 Consult Luu, 1.2.840.1 [id number] 8356 Univers 10:00:00 11:43:01 Winter 52379.1.1 ity of Gini 3.412.2.7 [place] .3.049847 MD Soares8 [facility] 2022-11-26 2022-11-26 Consult [facility], 1.2.840.1 [id number] 6728 Univers 10:00:00 11:43:01 Winter 54409.1.1 ity of Gini 3.412.2.7 [place] .3.740613 MD Soares8 [facility] 2022-11-26 2022-11-26 Travel 1.2.840.1 1.2.842.997 0679 388008 Univers 00:00:00 00:00:00 30370.1.1 350.1.13.41 ity of 3.412.2.7 2.2.7.3.698 [place] .3.837030 084.8 MD Soares8 [facility] 2022-11-26 2022-11-26 Travel 1.2.840.1 1.2.066.998 7809 884171 Univers 00:00:00 00:00:00 61766.1.1 350.1.13.41 ity of 3.412.2.7 2.2.7.3.698 [place] .3.301238 084.8 MD [facility] 2022-11-24 2022-11-24 Lab David Nunez 1.2.840.1 [id number] 52 [id number] Univers 00:00:00 00:00:00 Alexa Cantrell 03320.1.1 i ty of n 3.412.2.7 [place] .3.450499 MD Soares8 [facility] 2022-11-24 2022-11-24 Lab David Nunez 1.2.840.1 [id number] 52 [id number] Univers 00:00:00 00:00:00 Alexa Cantrell 90049.1.1 i ty of n 3.412.2.7 [place] .3.669035 MD [facility] 2022-11-23 2022-11-23 Telephone Jeffy, 1.2.840.1 [id number] 1101 [id number] Univers 00:00:00 00:00:00 Macaela T 61431.1.1 it y of 3.412.2.7 [place] .3.379036 MD Soares8 [facility] 2022-11-23 2022-11-23 Telephone Jeffy, 1.2.840.1 [id number] 1101 [id number] Univers 00:00:00 00:00:00 Macaela T 36980.1.1 it y of 3.412.2.7 [place] .3.100767 MD Soares8 [facility] 2022-11-22 2022-11-22 Orders Olivier, 1.2.840.1 [id number] 6102 Univers 00:00:00 00:00:00 Only Berkley 84755.1.1 ity of 3.412.2.7 [place] .3.034690 MD Bliar [facility] 2022-11-22 2022-11-22 Orders Olivier, 1.2.840.1 [id number] 8296 Univers 00:00:00 00:00:00 Only Berkley 10291.1.1 ity of 3.412.2.7 [place] .3.548044 .8 [facility] 2022-11-20 2022-11-20 Telephone Mateusz, 1.2.840.1 [id number] 1101 [id number] Univers 00:00:00 00:00:00 Elana 02050.1.1 ity of 3.412.2.7 [place] .3.527845 .8 [facility] 2022-11-20 2022-11-20 Telephone Mateusz, 1.2.840.1 [id number] 1101 [id number] Univers 00:00:00 00:00:00 Elana 52091.1.1 ity of 3.412.2.7 [place] .3Rodger040077 .8 [facility] 2022-11-18 2022-11-18 Refill Doctor [facility] 1.2.840.114 [id number] Univers 00:00:00 00:00:00 Unassigned, HEALTH 350.1.13.10 ity of [place]ARA 4.2.7.2.686 Frankie as JAVIER?BLEA [id number] [address] OFFICE [facility] 2022-11-18 2022-11-18 Telephone Jaziel [facility] 1.2.312.753 5082 2755 Univers 00:00:00 00:00:00 Nereida HEALTH 350.1.13.10 it y of [place] 4.2.7.2.686 Frankie as JAVIER?BLEA [id number] [address] OFFICE [facility] 2022-11-17 2022-11-17 Outpatient KYLAH BERMAN MDA [facility] [id number] 11:49:34 15:08:37 RED olivier 2022-11-17 2022-11-17 Office Kenya [place] 1.2.840.1 [id number] 11 [id number] [facility] 09:15:00 11:44:36 Visit Y. 82128.1.1 ity of 3.412.2.7 [place] .3Rodger844165 .8 [facility]17 2022-11-17 Office Kenya Arechiga 1.2.840.1 [id number] 11 [id number] Univers 09:15:00 11:44:36 Visit Y. 00651.1.1 ity of 3.412.2.7 [place] .3.007042 MD [facility] 2022-11-17 2022-11-17 NPR [place] 1.2.840.1 [id number] 11 [id number] Univers 08:45:00 09:16:44 Y. 10839.1.1 ity of 3.412.2.7 [place] .3.040482 MD [facility] 2022-11-17 2022-11-17 NPR EL [place] 1.2.840.1 [id number] 11 [id number] Univers 08:45:00 09:16:44 Y. 13288.1.1 ity of 3.412.2.7 [place] .3.395629 MD [facility] 2022-11-17 2022-11-17 Travel 1.2.840.1 1.2.530.114 2224 056579 Univers 00:00:00 00:00:00 66855.1.1 350.1.13.41 ity of 3.412.2.7 2.2.7.3.698 [place] .3.924503 084.8 MD [facility] 2022-11-17 2022-11-17 Telephone Jaziel [facility] 1.2.482.761 0115 6046 Univers 00:00:00 00:00:00 Nereida [facility] 350.1.13.10 it [facility] 4.2.7.2.686 Frankie as JAVIER?BLEA [id number] [address] MEDICAL [facility] 2022-11-17 2022-11-17 Travel 1.2.840.1 1.2.444.042 8066 [id number] Univers 00:00:00 00:00:00 54852.1.1 350.1.13.41 ity of 3.412.2.7 2.2.7.3.698 [place] .3.655023 084.8 MD [facility] 2022-11-16 2022-11-16 Orders Antonella, 1.2.840.1 [id number] 1101 [id number] Univers 00:00:00 00:00:00 Only Red Napoleon 23090.1.1 it y of 3.412.2.7 [place] .3.687410 MD Soares8 [facility] 2022-11-16 2022-11-16 Orders Antonella 1.2.840.1 [id number] 1101 [id number] Univers 00:00:00 00:00:00 Only Red [place] 36023.1.1 it y of 3.412.2.7 [place] .3Rodger058503 MD Soares8 [facility] 2022-11-13 2022-11-13 [place] Jaziel [facility] 1.2.768.524 3003 7693 Univers 00:00:00 00:00:00 [employer] 350.1.13.10 it y of [place] 4.2.7.2.686 Frankie as JAVIER?BLEA [id number] [address] MEDICAL OFFICE [facility]ILDING 2022-11-12 2022-11-12 Orders Yinka 1.2.840.1 [id number] 1101 [id number] Univers 00:00:00 00:00:00 Only Chloe Alejandre 13744.1.1 it y of 3.412.2.7 [place] .3.581631 MD Soares8 [facility] 2022-11-12 2022-11-12 Orders Antonella 1.2.840.1 [id number] 1101 [id number] Univers 00:00:00 00:00:00 Only Red Napoleon 15013.1.1 it y of 3.412.2.7 [place] .3Rodger182608 MD Soares8 [facility] 2022-11-12 2022-11-12 Orders Yinka 1.2.840.1 [id number] 1101 [id number] Univers 00:00:00 00:00:00 Only Chloe Alejandre 45648.1.1 it y of 3.412.2.7 [place] .3Rodger696488 MD Soares8 [facility] 2022-11-12 2022-11-12 Orders Antonella, 1.2.840.1 [id number] 1101 [id number] Univers 00:00:00 00:00:00 Only Red [place] 73586.1.1 it y of 3.412.2.7 [place] .3.023479 MD .8 [facility] 2022-11-07 2022-11-07 [facility] 1.2.840.114 [id number] Univers 00:00:00 00:00:00 [facility] 350.1.13.10 it y of [place] 4.2.7.2.686 Frankie as JAVIER?BLEA [id number] [address] OFFICE [facility] 2022-11-03 2022-11-03 [facility] 1.2.840.114 [id number] Univers 00:00:00 00:00:00 [facility] 350.1.13.10 it y of [place] 4.2.7.2.686 Frankie as JAVIER?BLEA [phone] [address] MEDICAL OFFICE [facility] 2022-11-03 2022-11-03 [facility] 1.2.840.114 [id number] Univers 00:00:00 00:00:00 [facility] HEALTH 350.1.13.10 it y of [place] 4.2.7.2.686 Frankie as JAVIER?BLEA [id number] [address] OFFICE [facility] 2022-10-21 2022-10-21 Office [facility] 1.2.840.114 [id number] Univers 09:30:00 09:45:00 Visit [facility] 350.1.13.10 it y of [place] 4.2.7.2.686 Frankie as JAVIER?BLEA [id number] [address] OFFICE [facility] 2022-10-21 2022-10-21 Outpatient R JAZIEL [facility] [id number] Univers 09:30:00 09:24:24 NEREIDA pierre [facility] 2022-10-01 2022-10-01 Refmaddie [facility] 1.2.840.114 [id number] Univers 00:00:00 00:00:00 [facility] 350.1.13.10 it y of [place] 4.2.7.2.686 Frankie as JAVIER?BLEA [phone] [address] OFFICE [facility] 2022-09-21 2022-09-21 Outpatient R JAZIEL [facility] [id number] Univers 10:00:00 10:00:00 NEREIDA ithenri [facility] 2022-09-21 2022-09-21 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 [facility], Ang - Db [facility] 1.2.840.1 14 [id number] Univers 10:00:00 10:00:00 Visit Jaziel [facility] 350.1.13.10 ity of [place] 4.2.7.2.686 Frankie as JAVIER?BLEA [id number] [facility] [address] [facility] OFFICE [facility] 2022-09-21 2022-09-21 Office [facility] 1.2.840.114 [id number] Univers 09:45:00 10:00:00 Visit [facility] 350.1.13.10 it y of [place] 4.2.7.2.686 Frankie as JAVIER?BLEA [id number] [address] OFFICE [facility] 2022-09-18 2022-09-18 Refmaddie [facility] 1.2.840.114 [id number] Univers 00:00:00 00:00:00 [facility] 350.1.13.10 it y of [place] 4.2.7.2.686 Frankie as JAVIER?BLEA [id number] [address] OFFICE [facility] 2022-09-17 2022-09-17 Refill [facility] 1.2.840.114 [id number] Univers 00:00:00 00:00:00 [facility] 350.1.13.10 it y of [place] 4.2.7.2.686 Frankie as JAVIER?BLEA [id number] [address] OFFICE [facility] 2022-09-07 2022-09-07 Refill [facility] 1.2.840.114 [id number] Univers 00:00:00 00:00:00 Nereida HEALTH 350.1.13.10 it y of [place] 4.2.7.2.686 Frankie as JAVIER?BLEA [phone] [place] dicjessica GOEL 044 [facility] OFFICE [facility] 2022-09-03 2022-09-03 Rohith [facility] 1.2.840.114 [id number] Univers 00:00:00 00:00:00 Nereida HEALTH 350.1.13.10 it y of [place] 4.2.7.2.686 Frankie as JAVIER?BLEA [id number] [place] dicjessica GOEL 044 [facility] OFFICE [facility] 2022-09-03 2022-09-03 [facility] 1.2.840.114 [id number] Univers 00:00:00 00:00:00 Nereida HEALTH 350.1.13.10 it y of [place] 4.2.7.2.686 Frankie as JAVIER?BLEA [id number] [facility] GOEL [address] [place] [address] 2022-08-28 2022-08-28 Outpatient R JO [facility] [id number] Univers 08:05:50 23:59:00 BLANCHE ity of [facility] 2022-08-28 2022-08-28 Hospital [facility] 1.2.840.114 [id number] Univers 08:05:50 23:59:00 Encounter Blanche CLARA 350.1.13.10 [facility] 4[place] [phone] [address] 2022-08-28 2022-08-28 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 Royal, Jenniffer Lab Main [facility] 1.2.8 40.114 [id number] Univers 08:15:00 08:30:00 Visit Blanche Osorio 350.1.13.10 [facility] 4.2.7.2.[place] [facility] [phone] Mn mary PINA 353 [facility] 2022-08-28 2022-08-28 Telephone [facility] 1.2.518.763 [id number] Univers 00:00:00 00:00:00 Blanche HEALTH 350.1.13.10 it y of [place] 4.2.7.2.686 Frankie as JAVIER?BLEA [id number] Mn mary MARINO[address] OFFICE [facility] 2022-08-26 2022-08-26 Outpatient R [facility] [place] [id number] Univers 00:00:00 00:00:00 BLANCHE pierre [facility] 2022-08-25 2022-08-25 Outpatient R GLENSourav [facility] [id number] Univers 10:00:00 11:23:37 BLANCHE pierre [facility] 2022-08-25 2022-08-25 [facility] 1.2.840.114 [id number] Univers 10:00:00 11:23:37 Visit [facility] 350.1.13.10 it y of [place] 4.2.7.2.686 Frankie as JAVIER?BLEA [phone] [address] OFFICE [facility] 2022-08-24 2022-08-24 Telephone [facility] 1.2.504.040 [id number] Univers 00:00:00 00:00:00 Blanche HEALTH 350.1.13.10 it y of [place] 4.2.7.2.686 Frankie as JAVIER?BLEA [id number] [address] OFFICE [facility] 2022-08-21 2022-08-21 Refmaddie [facility] 1.2.840.114 [id number] Univers 00:00:00 00:00:00 Nereida HEALTH 350.1.13.10 it y of [place] 4.2.7.2.686 Frankie as JAVIER?BLEA [id number] [address] OFFICE [facility] 2022-08-18 2022-08-18 [facility] 1.2.840.114 [id number] Univers 00:00:00 00:00:00 Nereida HEALTH 350.1.13.10 it y of [place] 4.2.7.2.686 Frankie as JAVIER?BLEA [id number] [address] OFFICE [facility] 2022-08-06 2022-08-06 [facility] 1.2.840.114 [id number] Univers 00:00:00 00:00:00 Nereida HEALTH 350.1.13.10 it y of [place] 4.2.7.2.686 Frankie as JAVIER?BLEA [phone] Mn mary GOEL [address] [place] [address] OFFICE [facility] 2022-08-05 2022-08-05 Andimaddie [facility] 1.2.840.114 [id number] 43 Univers 00:00:00 00:00:00 Nereida HEALTH 350.1.13.10 it y of [place] 4.2.7.2.686 Frankie as JAVIER?BLEA [phone] Mn mary MARINO[address] OFFICE [facility] 2022-07-30 2022-07-30 [facility] 1.2.840.114 [id number] 77 Univers 00:00:00 00:00:00 Nereida HEALTH 350.1.13.10 it y of [place] 4.2.7.2.686 Frankie as JAVIER?BLEA [phone] Mn mary [address] 2022-07-28 2022-07-28 [facility] [id number] 11:11:47 23:59:00 Encounter [facility] 2022-07-28 2022-07-28 Outpatient Angelica ALMEIDA [facility] [id number] SLE 11:11:47 23:59:00 2022-07-28 2022-07-28 [facility] [id number] 11:11:47 23:59:00 Encounter [facility] 2022-07-26 2022-07-26 Rohith [facility] 1.2.840.114 [id number] Univers 00:00:00 00:00:00 Nereida HEALTH 350.1.13.10 it y of [place] 4.2.7.2.686 Frankie as JAVIER?BLEA [phone] Mn mauri JAMILA[address] OFFICE [facility] 2022-07-21 2022-07-21 Rohith [facility] 1.2.840.114 [id number] Univers 00:00:00 00:00:00 Nereida HEALTH 350.1.13.10 it y of [place] 4.2.7.2.686 Frankie as JAVIER?BLEA [phone] Mn mary MARINO[address] OFFICE [facility] 2022-07-19 2022-07-19 [facility] 1.2.840.114 [id number] Univers 00:00:00 00:00:00 Nereida HEALTH 350.1.13.10 it y of [place] 4.2.7.2.686 Frankie as JAVIER?BLEA [phone] Mn mary [address] 2022-07-09 2022-07-09 [facility] 1.2.840.114 [id number] 47 Univers 00:00:00 00:00:00 Nereida HEALTH 350.1.13.10 it y of [place] 4.2.7.2.686 Frankie as JAVIER?BLEA [id number] [address] 2022-07-08 2022-07-08 Outside [facility] [id number] 00:00:00 00:00:00 Orders [facility] 2022-07-08 2022-07-08 Outside [facility] [id number] 00:00:00 00:00:00 Orders [facility] 2022-07-04 2022-07-04 [facility] 1.2.840.114 [id number] Univers 00:00:00 00:00:00 Nereida HEALTH 350.1.13.10 it y of [place] 4.2.7.2.686 Frankie as JAVIER?BLEA [phone] Mn mau[address] 2022-06-30 2022-06-30 [facility] 1.2.840.114 [id number] 74 Univers 00:00:00 00:00:00 Nereida [facility]ALTH 350.1.13.10 it y of [place] 4.2.7.2.686 Frankie as JAVIER?BLEA [id number] [address] MEDICAL OFFICE [facility] 2022-06-23 2022-06-23 Outpatient Leona CALERO [facility] [place] [id number] Univers 09:00:00 09:00:00 GERMAIN henri [facility] 2022-06-21 2022-06-21 Rohith [facility] 1.2.840.114 [id number] Univers 00:00:00 00:00:00 Nereida [facility]ALTH 350.1.13.10 it y of [place] 4.2.7.2.686 Frankie as JAVIER?BLEA [phone] [address] OFFICE [facility] 2022-06-17 2022-06-17 Outpatient Leona VARGAS [facility] [id number] Univers 10:00:00 10:00:00 NEREIDA henri [facility] 2022-06-08 2022-06-08 [facility] 1.2.840.114 [id number] Univers 00:00:00 00:00:00 Nereida HEALTH 350.1.13.10 it y of [place] 4.2.7.2.686 Frankie as JAVIER?BLEA [id number] [address] OFFICE [facility] 2022-06-08 2022-06-08 Rohith [facility] 1.2.840.114 [id number] Univers 00:00:00 00:00:00 Nereida [facility]ALTH 350.1.13.10 it y of [place] 4.2.7.2.686 Frankie as JAVIER?BLEA [id number] [address] OFFICE [facility] 2022-06-03 2022-06-03 Rohith [facility] 1.2.840.114 [id number] Univers 00:00:00 00:00:00 [facility]re[facility] 350.1.13.10 it y of [place] 4.2.7.2.686 Frankie as JAVIER?BLEA [id number] [address] OFFICE [facility] 2022-06-03 2022-06-03 Rohith [facility] 1.2.840.114 [id number] 74 Univers 00:00:00 00:00:00 [facility]re[facility] 350.1.13.10 it y of [place] 4.2.7.2.686 Frankie as JAVIER?BLEA [id number] [address] OFFICE [facility] 2022-05-17 2022-05-17 Rohith [facility] 1.2.840.114 [id number] Univers 00:00:00 00:00:00 Nereida [facility] 350.1.13.10 it y of [place] 4.2.7.2.686 Frankie as JAVIER?BLEA [id number] [address] OFFICE [facility] 2022-05-11 2022-05-11 Rohith [facility] 1.2.840.114 [id number] Univers 00:00:00 00:00:00 [facility] 350.1.13.10 it y of [place] 4.2.7.2.686 Frankie as JAVIER?BLEA [phone] [address] 2022-04-08 2022-04-08 Outpatient Aguilar_M VFP VFP [id number] [facility] 00:00:00 00:00:00 [id number] Family Practic e 2022-04-08 2022-04-08 Rohith [facility] 1.2.840.114 [id number] Univers 00:00:00 00:00:00 [facility] 350.1.13.10 it y of [place] 4.2.7.2.686 Frankie as JAVIER?BLEA [phone] [address] 2022-03-31 2022-03-31 Rohith [facility] 1.2.840.114 [id number] Univers 00:00:00 00:00:00 [facility] 350.1.13.10 it y of [place] 4.2.7.2.686 Frankie as JAVIER?BLEA [id number] [address] OFFICE [facility] 2022-03-18 2022-03-18 Outpatient Leona VARGAS DCDERREK [facility] [id number] Univers 09:30:00 09:45:06 NEREIDA pierre [facility] 2022-03-18 2022-03-18 Office Jaziel [facility] 1.2.840.114 [id number] Univers 09:30:00 09:45:00 Visit [facility] 350.1.13.10 it y of [place] 4.2.7.2.686 Frankie as JAVIER?BLEA [id number] [address] OFFICE [facility] 2022-03-18 2022-03-18 Outpatient R JAZIEL [facility] [id number] Univers 09:30:00 09:30:00 NEREIDA ity [facility] 2022 2022 Refmaddie [facility] 1.2.840.114 [id number] Univers 00:00:00 00:00:00 [facility] 350.1.13.10 it y of [place] 4.2.7.2.686 Frankie as JAVIER?BLEA [id number] [address] OFFICE [facility] 2022-03-13 2022-03-13 [facility] 1.2.840.114 [id number] Univers 00:00:00 00:00:00 [place] 350.1.13.10 it y of [place] 4.2.7.2.686 Frankie as JAVIER?BLEA [id number] [address] OFFICE [facility] 2022-03-11 2022-03-11 Rohith [facility] 1.2.840.114 [id number] Univers 00:00:00 00:00:00 [place] 350.1.13.10 it y of [place] 4.2.7.2.686 Frankie as JAVIER?BLEA [id number] [address] MEDICAL OFFICE [facility] 2022-03-09 2022-03-09 Rohith [facility] 1.2.840.114 [id number] 96 Univers 00:00:00 00:00:00 [facility] 350.1.13.10 it y of [place] 4.2.7.2.686 Frankie as JAVIER?BLEA [id number] [address] OFFICE [facility] 2022-03-05 2022-03-05 Rohith Y[facility] 1.2.840.114 [id number] 96 Univers 00:00:00 00:00:00 [facility] 350.1.13.10 it y of [place] 4.2.7.2.686 Frankie as JAVIER?BLEA [phone] Mn mary MARINO[address] OFFICE [facility] 2022-03-02 2022-03-02 [facility] 1.2.840.114 [id number] 53 Univers 00:00:00 00:00:00 [facility] 350.1.13.10 it y of [place] 4.2.7.2.686 Frankie as JAVIER?BLEA [phone] Mn mary MARINO[address] OFFICE [facility] 2022-03-02 2022-03-02 [facility] 1.2.840.114 [id number] 70 Univers 00:00:00 00:00:00 [facility] 350.1.13.10 it y of [place] 4.2.7.2.686 Frankie as JAVIER?BLEA [phone] Mn mary MARINO[address] OFFICE [facility] 2022-02-05 2022-02-05 [facility] 1.2.691.829 [id number] Univers 00:00:00 00:00:00 [facility] 350.1.13.10 it y of [place] 4.2.7.2.686 Frankie as JAVIER?BLEA [phone] Mn mary MARINO[address] OFFICE [facility] 2022-01-30 2022-01-30 [facility] 1.2.840.114 [id number] Univers 00:00:00 00:00:00 [facility] 350.1.13.10 it y of [place] 4.2.7.2.686 Frankie as PROFESSIO [phone] [address] OFFICE BUILDING ONE 2022-01-25 2022-01-25 Emergency X [facility]ANITANEW [facility] ERT [id number] Univers 12:57:00 16:23:00 JACQUELIN pierre of [facility] 2022-01-25 2022-01-25 Emergency [facility] 1.2.722.090 [id number] Univers 12:57:00 16:23:00 Jacquelin ELIZABETH 350.1.13.10 ity [facility] 4.2.7.2.686 [facility] [phone] [facility] [address] 2022-01-22 2022-01-22 Outpatient Eri VFP VFP [id number] 45-20 [facility] 08:43:00 08:43:00 [id number] Family Practic e 2022-01-14 2022-01-14 Rohith [facility] 1.2.840.114 [id number] Univers 00:00:00 00:00:00 [facility] 350.1.13.10 y [facility] 4.2.7.2.686 Frankie as [facility] [phone] Mn dical NAL [address] OFFICE [facility] ONE 2022-01-09 2022-01-09 [facility] [id number] 07:39:00 14:08:00 Encounter [facility] 2022-01-09 2022-01-09 Outpatient [facility] Surgery [id number] SLE 07:39:00 14:08:00 [facility] 2022-01-09 2022-01-09 Anesthesia Adam Sierra [facility] [id number] 11:08:00 12:56:00 Event India [facility] 2022-01-09 2022-01-09 [facility] [id number] 11:30:00 12:50:00 [facility] 2022-01-09 2022-01-09 Travel [facility] [id number] [facility] 00:00:00 00:00:00 [facility] 2022-01-08 2022-01-08 Outpatient [facility] SLE [id number] SLEH 12:18:15 23:59:00 2022-01-08 2022-01-08 [facility] [id number] 11:55:00 23:59:00 Encounter [facility] 2022-01-08 2022-01-08 Travel [facility] [id number] [facility] 00:00:00 00:00:00 [facility] 2021-12-18 2021-12-18 Office [facility] 1.2.840.114 [id number] Univers 15:45:00 16:15:00 Visit [facility] 350.1.13.10 it [place] [facility] [facility] 4.2.7.2.686 Frankie as JAVIER?BLEA [phone] Mn mary GOEL [address] MEDICAL OFFICE BUILDING 2021-12-18 2021-12-18 Outpatient [facility] [id number] Univers 15:45:00 15:45:00 [facility] 2021-12-18 2021-12-18 Outpatient [facility] [id number] Univers 15:45:00 15:45:00 [facility] 2021-12-16 2021-12-16 Outpatient [facility] [id number] Univers 16:00:00 16:00:00 [facility] 2021-12-16 2021-12-16 Orders Doctor OLGA 1.2.840.114 [id number] Univers 00:00:00 00:00:00 Only Unassigned, STEVE 350.1.13.10 ity of [place] [facility] 4.2.7.2.686 Frankie as [phone] [address] 2021-12-15 2021-12-15 Rohith [facility] 1.2.840.114 [id number] Univers 00:00:00 00:00:00 [place] 350.1.13.10 it y of [place] 4.2.7.2.686 Frankie as PROFESSIO [phone] Mn mary PINA [address] OFFICE BUILDING ONE 2021-12-08 2021-12-08 Rohith [facility] 1.2.840.114 [id number] 48 Univers 00:00:00 00:00:00 [facility] 350.1.13.10 it y of [facility] 4.2.7.2.686 Frankie as JAVIER?BLEA [phone] Mn mary GOEL [address] MEDICAL OFFICE BUILDING 2021-12-04 2021-12-04 [facility] [id number] 08:54:00 10:51:00 Encounter [facility] 2021-12-04 2021-12-[address] [facility] Surgery [id number] SLE 08:54:00 10:51:00 [facility] 2021-12-04 2021-12-04 Surgery [facility] [id number] 09:00:00 10:30:00 [facility] 2021-11-19 2021-11-19 [place] [facility] 1.2.848.587 [id number] Univers 00:00:00 00:00:00 [facility] 350.1.13.10 it y of [place] 4.2.7.2.686 Frankie as JAVIER?BLEA [phone] [address] OFFICE [facility] 2021-11-15 2021-11-15 Rohith Vargas [facility] 1.2.840.114 [id number] Univers 00:00:00 00:00:00 [facility] 350.1.13.10 it y of [place] 4.2.7.2.686 Frankie as PROFESSIO [phone] [address] 2021-11-06 2021-11-06 [facility] 1.2.840.114 [id number] Univers 00:00:00 00:00:00 [facility] 350.1.13.10 it y of [place] 4.2.7.2.686 Frankie as JAVIER?BLEA [id number] [address] OFFICE BUILDING 2021-11-01 2021-11-01 Outpatient Aguilar_M VFP VFP [id number] [facility] 02:58:00 02:58:00 [id number] Family Practic e 2021-10-27 2021-10-27 Rohith [facility] 1.2.840.114 [id number] Univers 00:00:00 00:00:00 [facility] 350.1.13.10 it y of [place] 4.2.7.2.686 Frankie as PROFESSIO [phone] Mn dical NAL 044 [facility] ONE 2021-10-16 2021-10-16 Refmaddie [facility] 1.2.840.114 [id number] 07 Univers 00:00:00 00:00:00 [facility] 350.1.13.10 it y of [facility] 4.2.7.2.686 Frankie as PROFESSIO [phone] Mn dical NAL 044 [facility] ONE 2021-10-11 2021-10-11 Outpatient Aguilar_M VFP VFP 72264 4520 [facility] 06:17:00 06:17:00 [id number] Family Practic e 2021-10-07 2021-10-07 Refill [facility] 1.2.840.114 [id number] Univers 00:00:00 00:00:00 [facility] 350.1.13.10 it y of [place] 4.2.7.2.686 Frankie as JAVIER?BLEA [id number] [address] OFFICE [facility] 2021-10-03 2021-10-03 Outpatient Aguilar_M VFP VFP [id number] 4520 [place] 05:34:00 05:34:00 [id number] Family Practic e 2021-09-29 2021-09-29 Refmaddie [facility] 1.2.074.994 [id number] Univers 00:00:00 00:00:00 [facility] 350.1.13.10 it y of SURGICAL 4.2.7.2.686 Frankie as SPECIALTI [phone] Mn dical ES 198 [facility] 2021-09-18 2021-09-18 Outpatient Leona VARGAS [facility] [id number] Univers 10:15:00 10:15:00 NEREIDA pierre [facility] 2021-09-18 2021-09-18 Office [facility] 1.2.840.114 [id number] Univers 08:40:07 08:55:07 Visit [facility] 350.1.13.10 it y of [facility] 4.2.7.2.686 Frankie as JAVIER?BLEA [phone] Mn [address] OFFICE [facility] 2021-09-18 2021-09-18 Outpatient R JAZIEL [facility] [id number] Univers 10:15:00 08:52:38 NEREIDA pierre [facility] 2021-09-08 2021-09-08 Rohith [facility] 1.2.840.114 [id number] Univers 00:00:00 00:00:00 [facility] 350.1.13.10 it y of [place] 4.2.7.2.686 Frankie as JAVIER?BLEA [phone] [address] OFFICE [facility] 2021-09-04 2021-09-04 Rohith [facility] 1.2.840.114 [id number] 02 Univers 00:00:00 00:00:00 [facility] 350.1.13.10 it y of [place] 4.2.7.2.686 Frankie as PROFESSIO [phone] [address] OFFICE [facility] ONE 2021-08-28 2021-08-28 Rohith [facility] 1.2.840.114 [id number] 80 Univers 00:00:00 00:00:00 [facility] 350.1.13.10 it y of [place] 4.2.7.2.686 Frankie as PROFESSIO [phone] [address] ONE 2021-08-22 2021-08-22 Rohith [facility] 1.2.840.114 [id number] 73 Univers 00:00:00 00:00:00 [facility] 350.1.13.10 it y of [place] 4.2.7.2.686 Frankie as Professio [id number] [address] One 2021-08-21 2021-08-21 Yousuf Hwang [facility] [place] - [id number] [facility] 00:00:00 00:00:00 [facility] [id number] Family [facility] - Pract brando MD: [address] [place] [address] , Ph. 2021-08-202021-08-20 Outpatient Alvarez_R VFP VFP [id number] 4520 [facility] 04:30:00 04:30:00 [id number] Family Practic e 2021-08-20 2021-08-20 Gala Vargas [facility] 1.2.655.508 [id number] Univers 00:00:00 00:00:00 [facility] 350.1.13.10 it y of [place] 4.2.7.2.686 Frankie as Javier?Blea [phone] Mn dical [facility] 044 [facility] 2021-08-07 2021-08-07 Refmaddie [facility] 1.2.840.114 [id number] Univers 00:00:00 00:00:00 [facility] 350.1.13.10 it y of [place] 4.2.7.2.686 Frankie as Javier?Blea [phone] Mn dicjessica kney 044 [facility] 2021-07-14 2021-07-14 Rohith [facility] 1.2.840.114 [id number] Univers 00:00:00 00:00:00 [facility] 350.1.13.10 it y of [place] 4.2.7.2.686 Frankie as Javier?Blea [phone] Mn dicjessica [facility] 044 [facility] 2021-07-11 2021-07-11 Imm/Inj Nurse, Adc Pob Immunization [facility] 1.2.840.114 [id number] Univers 10:44:02 10:44:14 Visit Miguel Braxton 350.1.13 .10 ity of [place] 4.2.7.2.686 [place] Profess[place] [phone] Mn dicjessica [address] 2021-07-11 2021-07-11 Outpatient R IRAIS [facility] [id number] Univers 10:30:00 10:30:00 MIGUEL pierre [facility] 2021-07-10 2021-07-10 Rohith [facility] 1.2.840.114 [id number] Univers 00:00:00 00:00:00 [facility] 350.1.13.10 it y of [place] 4.2.7.2.686 Frankie as Javier?Blea [phone] Mn mary Hernandez [facility] 2021-06-29 2021-06-29 Rohith [facility] 1.2.840.114 [id number] 70 Univers 00:00:00 00:00:00 [facility] 350.1.13.10 it y of [place] 4.2.7.2.686 Frankie as Professio [phone] Mn mary pina [facility] One 2021-06-24 2021-06-24 Rohith [facility] 1.2.840.114 [id number] 16 Univers 00:00:00 00:00:00 [facility] 350.1.13.10 it y of [place] 4.2.7.2.686 Frankie as Professio [phone] Mn mary pina [facility] One 2021-06-10 2021-06-10 Rohith [facility] 1.2.840.114 [id number] 93 Univers 00:00:00 00:00:00 [facility] 350.1.13.10 it y of [place] 4.2.7.2.686 Frankie as Professio [phone] Mn dical nal [facility] One 2021-06-09 2021-06-09 Rohith [facility] 1.2.840.114 [id number] 28 Univers 00:00:00 00:00:00 [facility] 350.1.13.10 it y of [place] 4.2.7.2.686 Frankie as Professio [phone] Mn dical nal [facility] One 2021-06-09 2021-06-09 Rohith [facility] 1.2.840.114 [id number] Univers 00:00:00 00:00:00 [facility] [id number] it y of [place] [id number] Frankie as Professio [phone] Mn dical nal [facility] One 2021-06-01 2021-06-01 [facility] 1.2.840.114 [id number] Univers 00:00:00 00:00:00 [facility] [id number] it y of [place] [id number] Frankie as Professio [phone] [facility] nal [address] [place] [address] Office [facility] One 2021-05-15 2021-05-15 Patient Nabil [facility] 1.2.840.114 [id number] Univers 00:00:00 00:00:00 Outreach Jaimee Alejandre [facility] [id number] i ty of [place] [id number] Frankie as Professio [phone] [address] Office [facility] One 2021-05-14 2021-05-14 Nurse Cbc, Medicare Wellness Ang [facility] 1.2.840.114 [id number] Univers 09:04:42 10:32:18 Visit Jaziel Nereida [facility] [id number] ity of [place] [id number] Frankie as Professio [phone] [address] One 2021-05-14 2021-05-14 Office [facility] 1.2.840.114 [id number] Univers 08:58:25 09:13:25 Visit [facility] [id number] it y of [place] [id number] Frankie as Professio [phone] [address] One 2021-05-14 2021-05-14 [facility] [id number] Univers 09:00:00 09:00:00 NEREIDA pierre [facility] 2021-05-12 2021-05-12 Refill Jaziel [facility] 1.2.840.114 [id number] Univers 00:00:00 00:00:00 [facility] [id number] it y of [place] [id number] Frankie as Professio [phone] [address] Office [facility] One 2021-04-30 2021-04-30 Outpatient Leona JOYCE [facility] [id number] Univers 13:15:00 13:15:00 DUSTIN pierre [facility] 2021-04-23 2021-04-23 Outpatient R VARGAS, [facility] [id number] Univers 00:00:00 00:00:00 NEREIDA ity [facility] 2021-04-14 2021-04-14 Andimaddie [facility] 1.2.840.114 [id number] Univers 00:00:00 00:00:00 [facility] [id number] it y of [place] [id number] Frankie as Professio [phone] [address] Office Building One 2021-04-03 2021-04-03 Hammad Chaney 1.2.840.114 [id number] Univers 00:00:00 00:00:00 Management , Mary Giang [id number] [place] [id number] [phone] [address] 2021-03-26 2021-03-26 [facility] 1.2.840.114 [id number] 00:00:00 00:00:00 [facility] 350.1.13.10 [place] [id number] Professio [phone] [place] [address] Office Building One 2021-03-26 2021-03-26 [facility] 1.2.840.114 [id number] Univers 00:00:00 00:00:00 [facility] [id number] it y of [place] [id number] Frankie as Professio [phone] [address] Office Building One 2021-03-25 2021-03-25 [facility]ith [facility] 1.2.840.114 [id number] 00:00:00 00:00:00 [facility] 350.1.13.10 [place] 4.2.7.2.686 Professio [phone] [place] [address] Office Building One 2021-03-25 2021-03-25 Rohith [facility] 1.2.840.114 [id number] Univers 00:00:00 00:00:00 [facility] 350.1.13.10 it y of [place] 4.2.7.2.686 Frankie as Professio [phone] [address] Office [facility] One 2021-03-18 2021-03-18 Gala [facility] 1.2.944.806 [id number] 8122 00:00:00 00:00:00 [facility] [place] 350.1.13.10 [place] 4.2.7.2.686 Professio [phone] [address] 2021-03-18 2021-03-18 Gala [facility] 1.2.985.664 [id number] 8122 Univers 00:00:00 00:00:00 Nereida [place] 350.1.13.10 i ty of [place] [phone] [address] 2021-03-13 2021-03-13 Gala [facility] 1.2.726.964 [id number] 8562 00:00:00 00:00:00 [facility] 350.1.13.10 [place] 4.2.7.2.686 Professio [phone] [place] [address] Office [facility] One 2021-03-13 2021-03-13 Gala [facility] 1.2.094.205 5768 8562 Univers 00:00:00 00:00:00 [facility] 350.1.13.10 [facility] of [place] 4.2.7.2.686 Frankie as Professio [phone] [address] Office [facility] One 2021-03-10 2021-03-10 Outpatient R SUNDAY [facility] [id number] Univers 12:00:00 12:00:00 AMANDA pierre [facility] 2021-03-10 2021-03-10 Urgent Provider, [facility] 1.2.840.114 [id number] Univers 11:16:36 11:36:36 Amanda Montes De Oca 350.1.13.10 ity of [place] 4.2.7.2.686 [place]ie as Professio [phone] [address] Office [facility] One 2021-03-10 2021-03-10 Refill Jaziel [facility] 1.2.840.114 [id number] Univers 00:00:00 00:00:00 [facility] 350.1.13.10 it y of [place] 4.2.7.2.686 [place]ie as Professio [phone] [address] Office [facility] One 2021-02-25 2021-02-25 Telephone [facility] 1.2.983.423 [id number] 5165 Univers 00:00:00 00:00:00 [facility] 350.1.13.10 it y of [place] 4.2.7.2.686 [place]ie as Professio [phone] [address] One 2021-02-20 2021-02-20 Refill [facility] 1.2.840.114 [id number] Univers 00:00:00 00:00:00 [facility] 350.1.13.10 it y of [place] 4.2.7.2.686 [place] as Professio [phone] [address] One 2021-02-12 2021-02-12 Office [facility] 1.2.840.114 [id number] Univers 09:00:39 09:22:35 Visit [facility] 350.1.13.10 it y of [place] 4.2.7.2.686 [place]ie as Professio [phone] [address] Office [facility] One 2021-02-12 2021-02-12 [facility] [id number] Univers 09:00:00 09:00:00 NEREIDA ity of [facility] 2021-02-12 2021-02-12 Orders Doctor OLGA 1.2.840.114 [id number] Univers 00:00:00 00:00:00 Only Unassigned, STEVE 350.1.13.10 ity of [place] [facility] 4.2.7.2.686 Frankie as [phone] [address] 2021-02-10 2021-02-10 Refill [facility] 1.2.840.114 [id number] 75 Univers 00:00:00 00:00:00 [facility] 350.1.13.10 it y of [place] 4.2.7.2.686 [place] as Professio [phone] [address] One 2021-01-06 2021-01-06 Telephone [facility] 1.2.853.451 [id number] 6786 Univers 00:00:00 00:00:00 [facility] 350.1.13.10 it y of [place] 4.2.7.2.686 [place] as Professio [phone] [address] One 2021-01-06 2021-01-06 Gala [facility] 1.2.295.209 [id number] 1909 Univers 00:00:00 00:00:00 [facility] 350.1.13.10 it y of [place] 4.2.7.2.686 [place]ie as Professio [phone] [address] One 2021-01-01 2021-01-01 [facility] [id number] Univers 15:20:00 15:20:00 PABLO [facility] 2020-12-31 2020-12-31 Outpatient R JAYDON [facility] [id number] Univers 15:50:00 15:50:00 PABLO [facility] 2020-12-12 2020-12-12 Rohith [facility] 1.2.840.114 [id number] Univers 00:00:00 00:00:00 [facility] 350.1.13.10 it y of [place] 4.2.7.2.686 [place]ie as Professio [phone] [address] One 2020-12-11 2020-12-11 Rohith [facility] 1.2.840.114 [id number] 10 Univers 00:00:00 00:00:00 [facility] 350.1.13.10 it y of [place] 4.2.7.2.686 [place]ie as Professio [phone] [address] One 2020-12-03 2020-12-03 Outpatient R JAYDON [facility] [id number] Univers 15:50:00 15:50:00 PABLO [facility] 2020-11-13 2020-11-13 Office [facility] 1.2.840.114 [id number] Univers 08:46:00 09:20:33 Visit [facility] 350.1.13.10 it y of [place] 4.2.7.2.686 [place]ie as Professio [phone] [address] One 2020-11-13 2020-11-13 Outpatient [facility] [id number] Univers 09:00:00 09:00:00 NEREIDA pierre [facility] 2020-11-11 2020-11-11 Refill [facility] 1.2.840.114 [id number] Univers 00:00:00 00:00:00 Nereida Elizabeth 350.1.13.10 i ty of [place].2.[place] [phone] [address] 2020-10-10 2020-10-10 Telephone [facility] 1.2.189.672 [id number] 5436 Univers 00:00:00 00:00:00 Nereida [facility] 350.1.13.10 it y of [place] 4.2.7.2.686 [place]ie as Professio [phone] [address] One 2020-10-10 2020-10-10 Letter [facility] 1.2.840.114 [id number] Univers 00:00:00 00:00:00 (Out) [facility] 350.1.13.10 it y of [place] 4.2.7.2.686 [place] as Professio [phone] [address] One 2020-10-10 2020-10-10 Refill [facility] 1.2.840.114 [id number] 97 Univers 00:00:00 00:00:00 [facility] 350.1.13.10 it y of [place] 4.2.7.2.686 [place]ie as Professio [phone] [address] Office [facility] One 2020-10-09 2020-10-09 Refmaddie [facility] 1.2.840.114 [id number] Univers 00:00:00 00:00:00 [facility] 350.1.13.10 it y of [place] 4.2.7.2.686 Frankie as Professio [phone] Mn dical nal 044 [facility][Note 2] 2020-10-08 2020-10-08 Refmaddie [facility] 1.2.840.114 [id number] 51 Univers 00:00:00 00:00:00 [facility] 350.1.13.10 it y of [place] 4.2.7.2.686 Frankie as Professio [phone] Mn dical nal 044 [place] Office [facility] 2020-10-04 2020-10-04 Outpatient [facility] [id number] Univers 11:15:00 11:15:00 LUAN [facility] 2020-10-04 2020-10-04 Office [facility] 1.2.918.223 [id number] [id number] Univers 09:57:57 10:50:32 Visit [facility] 350.1.13.10 it y of Surgical 4.2.7.2.686 Frankie as Specialti [phone] Mn dical es 198 [facility] 2020-09-11 2020-09-11 [facility] 1.2.840.114 [id number] 58 Univers 00:00:00 00:00:00 [facility] 350.1.13.10 it y of [place] 4.2.7.2.686 Frankie as Professio [phone] Mn dical nal 044 [facility][Note 2] 2020-09-02 2020-09-02 Refmaddie [facility] 1.2.840.114 [id number] 45 Univers 00:00:00 00:00:00 [facility] 350.1.13.10 it y of [place] 4.2.7.2.686 Frankie as Professio [phone] Mn dical nal 044 [facility][Note 2] 2020-08-26 2020-08-26 Outpatient R [facility] [id number] Univers 13:30:00 13:30:00 MOE [facility] 2020-08-15 2020-08-15 Office [facility] 1.2.840.114 [id number] Univers 09:59:04 10:14:04 Visit Germain Bryant [facility] 350.1.13.10 it y of Surgical 4.2.7.2.686 Frankie as Specialti [phone] Mn dical es 198 [facility] 2020-08-15 2020-08-15 Outpatient R GALILEA [facility] [id number] Univers 10:00:00 10:00:00 GERMAIN pierre [facility] 2020-08-13 2020-08-13 Telephone [facility] 1.2.840.114 [id number] Univers 00:00:00 00:00:00 Luan Alejandre [facility] 350.1.13.10 it y of Surgical 4.2.7.2.686 [place]ie as Specialti [phone] Mn dical es 198 [facility] 2020-08-12 2020-08-12 Office [facility] 1.2.840.114 [id number] 07 Univers 09:06:31 09:21:31 Visit [facility] 350.1.13.10 it y of [place] 4.2.7.2.686 Frankie as Professio [phone] Mn dical nal 044 [place] Office [facility] One 2020-08-12 2020-08-12 Outpatient R [facility] [id number] Univers 09:00:00 09:00:00 NEREIDA henri [facility] 2020-08-08 2020-08-08 Office [facility] 1.2.703.148 [id number] [id number] Univers 14:52:25 15:06:19 Visit Luan Alejandre [facility] 350.1.13.10 it y of Surgical 4.2.7.2.686 Frankie as Specialti [phone] Mn dical es 198 [facility] 2020-08-08 2020-08-08 Outpatient [facility] [id number] Univers 15:00:00 15:00:00 LUAN pierre [facility] 2020-08-05 2020-08-05 Emergency [facility] 1.2.775.147 [id number] 1902 Univers 15:02:00 17:02:00 Brigida Leona Elizabeth 350.1.13.10 i ty of [place]2.[place].2.686 [place] [phone] [facility] 084 [place] 2020-08-05 2020-08-05 Orders Doctor OLGA 1.2.840.114 [id number] Univers 00:00:00 00:00:00 Only Unassigned, STEVE 350.1.13.10 ity of [place] [facility] 4.2.7.2.686 Frankie as [phone] [facility] 009 [place] 2020-08-01 2020-08-01 [facility] 1.2.808.947 [id number] 3459 Univers 14:43:38 16:10:03 Visit Almita Elizabeth 350.1.13.10 i ty of [place].7.2.[place] [phone] Mn dical nal 188 [facility] 2020-08-01 2020-08-01 Outpatient R [facility] [id number] Univers 14:30:00 14:30:00 ALMITA pierre [facility] 2020-07-29 2020-07-29 Rohith [facility] 1.2.840.114 [id number] Univers 00:00:00 00:00:00 [facility] 350.1.13.10 it y of [place] 4.2.7.2.686 Frankie as Professio [phone] [facility] 044 [facility] One 2020-07-23 2020-07-23 Outpatient R [facility] [id number] Univers 14:15:00 14:15:00 ALMITA pierre [facility] 2020-07-23 2020-07-23 Rohith [facility] 1.2.840.114 [id number] Univers 00:00:00 00:00:00 [facility] 350.1.13.10 it y of [place] 4.2.7.2.686 Frankie as Professio [phone] [facility] 044 [facility] One 2020-07-22 2020-07-22 Outpatient R [facility] [id number] Univers 10:00:00 10:00:00 KEN pierre [facility] 2020-07-15 2020-07-15 Rohith [facility] 1.2.840.114 [id number] Univers 00:00:00 00:00:00 [facility] 350.1.13.10 it y of [place] 4.2.7.2.686 Frankie as Professio [phone] Mn dic[address] Office [facility] One 2020-06-26 2020-06-26 Rohith [facility] 1.2.840.114 [id number] 67 Univers 00:00:00 00:00:00 [facility] 350.1.13.10 it y of [place] 4.2.7.2.686 Frankie as Professio [phone] [address] Office [facility] One 2020-06-25 2020-06-25 Outpatient R [facility] [id number] Univers 13:30:00 13:30:00 [facility] 2020-06-12 2020-06-12 Refmaddie [facility] 1.2.840.114 [id number] 96 Univers 00:00:00 00:00:00 [facility] 350.1.13.10 it y of [place] 4.2.7.2.686 Frankie as Professio [phone] [address] One 2020-06-12 2020-06-12 [place] [facility] 1.2.902.666 [id number] 4040 Univers 00:00:00 00:00:00 [facility] 350.1.13.10 it y of [place] 4.2.7.2.686 [place]ie as Professio [phone] [address] One 2020-06-11 2020-06-11 [facility] 1.2.840.114 [id number] 04 Univers 00:00:00 00:00:00 [facility] 350.1.13.10 it y of [place] 4.2.7.2.686 Frankie as Professio [phone] Mn dic[address] Office [facility] One 2020-06-05 2020-06-05 [facility] 1.2.840.114 [id number] Univers 00:00:00 00:00:00 [facility] 350.1.13.10 it y of [place] 4.2.7.2.686 Frankie as Professio [phone] [facility] 044 [facility][Note 2] 2020-05-28 2020-05-28 Telephone [facility] 1.2.843.451 [id number] Univers 00:00:00 00:00:00 Nereida Clara 350.1.13.10 i ty of [place] 4[place].2.[place] [phone] [address] 2020-05-13 2020-05-13 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 Royal, Jenniffer Lab Main [facility] 1.2.8 40.114 [id number] Univers 14:52:09 15:07:09 Visit Nereida Vargas Clara 350.1.13.10 ity of [place] 4.2.7.2.[place] [phone] [facility] 353 [facility] 2020-05-13 2020-05-13 Outpatient R JAZIEL [facility] [id number] Univers 14:30:00 14:30:00 NEREIDA pierre [facility] 2020-05-13 2020-05-13 Office [facility] 1.2.840.114 [id number] Univers 13:57:32 14:12:32 Visit Nereida Clara 350.1.13.10 i ty of [place] 4.2.7.2.686 [place] [phone] [address] 2020-05-09 2020-05-09 Refill [facility] 1.2.840.114 [id number] Univers 00:00:00 00:00:00 [facility] 350.1.13.10 it y of [place] 4.2.7.2.686 Frankie as Professio [phone] [address] 2020-04-10 2020-04-10 Refill [facility] 1.2.840.114 [id number] 51 Univers 00:00:00 00:00:00 [facility] 350.1.13.10 it y of [place] 4.2.7.2.686 [place]ie as Professio [phone] [address] 2020-03-13 2020-03-13 Telephone [facility] 1.2.773.540 [id number] [id number] Univers 00:00:00 00:00:00 Nereida Elizabeth 350.1.13.10 i ty of [place] 4.2.7.2.[place] [phone] Mn dical nal 044 [facility] 2020-03-11 2020-03-11 Refmaddie [facility] 1.2.840.114 [id number] 97 Univers 00:00:00 00:00:00 [facility] 350.1.13.10 it y of [place] 4.2.7.2.686 Frankie as Professio [phone] [facility] nal 044 [facility] One 2020-02-20 2020-02-20 Telemediccarlos RamirezCH[facility] 1.2.840.114 [id number] Univers 08:07:16 16:58:17 ne Visit Travis Elizabeth 350.1.13.10 ity of [place] 4[place]2.7.2.686 [place] [phone] [facility] 220 [facility] 2020-02-20 2020-02-20 Outpatient R MELI [facility] [id number] Univers 15:00:00 15:00:00 TRAVIS pierre [facility] 2020-02-15 2020-02-15 Outpatient R [facility] [id number] Univers 07:30:00 07:30:00 NEREIDA pierre [facility] 2020-02-15 2020-02-15 Telemedici [facility] 1.2.840.114 [id number] Univers 06:51:18 07:06:18 ne Visit Nereida Elizabeth 350.1.13.10 ity of [place] 4[place].2.[place] Profess[place] [phone] [address] 2020-02-14 2020-02-14 Outpatient R [facility] [id number] Univers 07:00:00 07:00:00 NEREIDA pierre [facility] 2020-02-12 2020-02-12 Refmaddie [facility] 1.2.840.114 [id number] 41 Univers 00:00:00 00:00:00 [facility] 350.1.13.10 it y of [place] 4.2.7.2.686 Frankie as Professio [phone] Mn dical nal 044 [place] Office Building One 2020-01-11 2020-01-11 Refill [facility] 1.2.840.114 [id number] 50 Univers 00:00:00 00:00:00 [facility] 350.1.13.10 it y of [place] 4.2.7.2.686 Frankie as Professio [phone] Mn dical nal [address] [place] [address] Office Building One 2019-12-28 2019-12-28 Office [facility] 1.2.840.114 [id number] 07 Univers 09:22:44 09:56:04 Visit [facility] 350.1.13.10 it y of [place] 4.2.7.2.686 Frankie as Professio [phone] Mn dical nal [address] [place] [address] Office Building One 2019-12-28 2019-12-28 Outpatient R [facility] [id number] Univers 09:30:00 09:30:00 NEREIDA ity of [facility] 2019-12-14 2019-12-14 [facility] 1.2.840.114 [id number] 73 Univers 00:00:00 00:00:00 [facility] 350.1.13.10 it y of [place] 4.2.7.2.686 Frankie as Professio [phone] Mn dical nal [address] [place] [address] Office Building One 2019-12-11 2019-12-11 Telephone [facility] 1.2.997.073 [id number] [id number] Univers 00:00:00 00:00:00 [facility] 350.1.13.10 it y of [place] 4.2.7.2.686 Frankie as Professio [phone] Mn dical nal 044 [place] Office Building One 2019-12-02 2019-12-02 Refcleveland clinic [facility] 1.2.840.114 [id number] 07 Univers 00:00:00 00:00:00 [facility] 350.1.13.10 it y of [place] 4.2.7.2.686 Frankie as Professio [phone] Mn dical nal [address] [place] [address] Office Building One 2019-11-15 2019-11-15 Office [facility] 1.2.840.114 [id number] 15 Univers 06:58:39 07:13:39 Visit [facility] 350.1.13.10 it y of [place] 4.2.7.2.686 Frankie as Professio [phone] [address] Office [facility] One 2019-10-27 2019-10-27 Outpatient R JENNIFER [facility] [id number] Univers 09:55:58 23:59:00 ZACARIAS ity of [facility] 2019-07-20 2019-07-20 Refmaddie [facility] 1.2.840.114 [id number] Univers 00:00:00 00:00:00 [facility] 350.1.13.10 it y of [place] 4.2.7.2.686 Frankie as Professio [phone] [address] Office [facility] One 2019-07-04 2019-07-04 Refmaddie [facility] 1.2.840.114 [id number] 72 Univers 00:00:00 00:00:00 [facility] 350.1.13.10 it y of [place] 4.2.7.2.686 Frankie as Professio [phone] [address] Office Building One 2019-06-28 2019-06-28 Office Jaziel [facility] 1.2.840.114 [id number] Univers 09:34:17 10:06:56 Visit [facility] 350.1.13.10 it y of [place] 4.2.7.2.686 Frankie as Professio [phone] [address] Office Building One 2019-06-28 2019-06-28 Refmaddie [facility] 1.2.840.114 [id number] 42 Univers 00:00:00 00:00:00 [facility] 350.1.13.10 it y of [place] 4.2.7.2.686 Frankie as Professio [phone] [address] Office Building One 2019-06-21 2019-06-21 Refmaddie [facility] 1.2.840.114 [id number] Univers 00:00:00 00:00:00 [facility] 350.1.13.10 y frankie [place] 4.2.7.2.686 Frankie as Syeda [phone] Mn dical formerly [facility] 044 [place] Office [facility] 2018-12-09 2018-12-09 Ambulatory nullFlavo MNA [id number] [id number] Memoria 20:45:00 20:45:00 Pre-Reg r Neurology 03 l [place] 2018-12-09 2018-12-09 Ambulatory nullFlavo MNA [id number] Memoria 20:45:00 20:45:00 Pre-Reg r Neurology 03 l Juan [place] 2018-12-09 2018-12-09 Outpatient MHIE MHIE [id number] Memoria 14:45:00 14:45:00 03 bonnie [place] 2018-12-09 2018-12-09 Outpatient JAMIR Casiano MISCHER [id number] 14:45:00 14:45:00 John Mcmanus 2018-07-26 2018-07-26 Outpatient MHIE MHIE [id number] Memoria 09:00:00 09:00:00 02 bonnie [place] 2018-07-26 2018-07-26 Outpatient MHIE MHIE [id number] Memoria 09:00:00 09:00:00 02 [facility] 2018-04-26 2018-04-26 Outpatient MHIE MHIE [id number] Memoria 08:30:00 08:30:00 01 [facility] 2018-04-26 2018-04-26 Outpatient MHIE MHIE [id number] Memoria 08:30:00 08:30:00 01 [facility] 2018-04-04 2018-04-05 Day nullFlavo [facility] [id number] Memoria 17:57:00 04:59:00 Surgery r [place] 02 l [facility] 2018-04-04 2018-04-05 Day nullFlavo [facility] [id number] Memoria 17:57:00 04:59:00 Surgery r [place] 02 [facility] 2018-04-04 2018-04-04 Outpatient Kimberly Ng [facility] [id number] 12:57:00 23:59:00 Han 2018-03-30 2018-03-30 Outpatient MHIE MHIE [id number] Memoria 13:30:00 13:30:00 00 l [place] 2018-03-30 2018-03-30 Outpatient IE LORENZO [id number] Memoria 13:30:00 13:30:00 00 l [place] 2018-03-21 2018-03-22 Day nullFlavo [facility] [id number] Memoria 19:01:00 04:59:00 Surgery r [place] 01 l [facility]opedic [facility] 2018-03-21 2018-03-22 Day nullFlavo [facility] [id number] Memoria 19:01:00 04:59:00 Surgery r [place] 01 l [facility] 2018-03-21 2018-03-21 Outpatient Kimberly Ng [facility] [id number] 14:01:00 23:59:00 Han 2015-11-08 2015-11-08 Bedded nullFlavo [facility] [id number] Memoria 18:06:00 21:20:00 Outpatient r [place] 00 l [place] 2015-11-08 2015-11-08 Bedded nullFlavo [facility] [id number] Memoria 18:06:00 21:20:00 Outpatient r [place] 00 l [place] 2015-11-08 2015-11-08 Outpatient [facility] [id number] 12:06:00 15:20:00 Sheilendra 00 [facility] 2015-10-24 2015-10-25 Outpt Diag nullFlavo [facility] [id number] Memoria 15:50:00 05:59:00 Services r Outpatient 00 l Imaging [place] 2015-10-24 2015-10-25 Outpt Diag nullFlavo [facility] [id number] Memoria 15:50:00 05:59:00 Services r Outpatient 00 l Imaging [place] 2015-10-24 2015-10-24 Outpatient [facility] [id number] 09:50:00 23:59:00 Sheilendra 00 [facility] Results Test Description Test Time Test Comments Results Result Comments Source POCT GLUCOSE (AUTOMATED) 2023-06-19 16:52:14 Test Item Value Reference Range Interpretation Comme nts POCT GLU (test code = 1497175712) 242 mg/dL 70-110 H Lab Interpretation (test code = 08243-3) [facility] 12:29:51 Test Item Value Reference Range Interpretation Comments POCT GLU (test code = 8427398850) 178 mg/dL 70-110 H Lab Interpretation (test code = Abnormal 17920-5) [facility] 10[facility]27:37 Test Item Value Reference Range Interpretation Comments PHOSPHORUS (test code = 0343402650) 4.5 mg/dL 2.5-5.0 Lab Interpretation (test code = Normal 62150-5) [facility] 10:27:37 Test Item Value Reference Range Interpretation Comments MAGNESIUM (test code = 1602896704) 1.5 mg/dL 1.7-2.4 L Lab Interpretation (test code = Abnormal 46228-0) [facility] (NA, K, CL, CO2, GLUCOSE, BUN, CREATININE, [place])2023-06-19 10:27:37 Test Item Value Reference Range Interpretation Comments NA (test code = 138 mmol/L 135-145 2097840187) K (test code = 3.9 mmol/L 3.5-5.0 2291221841) CL (test code = 99 mmol/L 98-108 5126090434) CO2 TOTAL (test code = 34 mmol/L 23-31 H 7231497300) AGAP (test code = 5 2-16 8490807695) BUN (test code = 11 mg/dL 7-23 8040425628) GLUCOSE (test code = 177 mg/dL 70-110 H 1676384902) CREATININE (test code = 0.56 mg/dL 0.50-1.04 0834099699) CALCIUM (test code = 8.9 mg/dL 8.6-10.6 6140091463) eGFR (test code = 112.0 mL/min/1.73m2 9695422288) HEATHER (test code = HEATHER) Association of [...] tests). Lab Interpretation Abnormal (test code = 70945-3) [facility] WITH [id number] 09:56:33 Test Item Value Reference Range Interpretation Comments WBC (test code = 7.25 See_Comment [Automated message] 0790-2) The system [employer] generated this result transmitted ref erence range: 4.30 - 1 1.10 10*3/?L. The re ference range was not u sed to interpret this result as normal/abnor mal. RBC (test code = 4.75 See_Comment [Automated message] 752-8) The system [employer] generated this result transmitted ref erence range: 3.93 - 5 .25 10*6/?L. The re ference range was not u sed to interpret this result as normal/abnor mal. HGB (test code = 14.8 g/dL 11.6-15.0 718-7) HCT (test code = 44.4 % 35.7-45.2 4544-3) MCV (test code = 93.5 fL 80.6-95.5 787-2) MCH (test code = 31.2 pg 25.9-32.8 785-6) MCHC (test code = 33.3 g/dL 31.6-35.1 786-4) RDW-SD (test code 43.8 fL 39.0-49.9 = 42333-1) RDW-CV (test code 12.7 % 12.0-15.5 = 788-0) PLT (test code = 203 See_Comment [Automated message] 777-3) The system whic h generated this result transmitted ref erence range: 166 - 35 8 10*3/?L. The re ference range was not u sed to interpret this result as normal/abnor mal. MPV (test code = 10.0 fL 9.5-12.9 36182-8) NRBC/100 WBC (test 0.0 See_Comment [Automat ed message] code = 5790896660) The syste m which generated this result transmitted ref erence range: 0.0 - 10 .0 /100 WBCs. The refer ence range was not u sed to interpret this result as normal/abnor mal. NRBC x10^3 (test See_Comment [Automated message] code = 7013277615) The syste m which generated this result transmitted ref erence range: 10*3/?L. The reference range was not used to interpr et this result as normal/abnormal . GRAN MAT (NEUT) % 55.0 % (test code = 770-8) IMM GRAN % (test 0.60 % code = 5936514640) LYMPH % (test code 29.0 % = 736-9) MONO % (test code 10.8 % = 5905-5) EOS % (test code = 3.9 % 713-8) BASO % (test code 0.7 % = 706-2) GRAN MAT 4.00 10*3/uL 1.88-7.09 x10^3(ANC) (test code = 0932700732) IMM GRAN x10^3 0.04 10*3/uL 0.00-0.06 (test code = 8939488654) LYMPH x10^3 (test 2.10 10*3/uL 1.32-3.29 code = 731-0) MONO x10^3 (test 0.78 10*3/uL 0.33-0.92 code = 742-7) EOS x10^3 (test 0.28 10*3/uL 0.03-0.39 code = 711-2) BASO x10^3 (test 0.05 10*3/uL 0.01-0.07 code = 704-7) [facility] GLUCOSE (AUTOMATED)2023-06-19 02:11:33 Test Item Value Reference Range Interpretation Comments POCT GLU (test code = 3449212694) 212 mg/dL 70-110 H Lab Interpretation (test code = Abnormal 74355-9) [facility] GLUCOSE (AUTOMATED)2023-06-18 21:51:13 Test Item Value Reference Range Interpretation Comments POCT GLU (test code = 189 mg/dL 70-110 H Notifi ed Provider [id number]) Lab Interpretation (test Abnormal code = 37615-8) [facility] GLUCOSE (AUTOMATED)2023-06-18 16:55:10 Test Item Value Reference Range Interpretation Comments POCT GLU (test code = 252 mg/dL 70-110 H Notifi ed Provider [id number]) Lab Interpretation (test Abnormal code = 30573-5) [facility] GLUCOSE (AUTOMATED)2023-06-18 12:23:04 Test Item Value Reference Range Interpretation Comments POCT GLU (test code = 174 mg/dL 70-110 H Notifi ed Provider [id number]) Lab Interpretation (test Abnormal code = 27325-6) [facility] Test Item Value Reference Range Interpretation Comments PHOSPHORUS (test code = 7656546448) 5.6 mg/dL 2.5-5.0 H Lab Interpretation (test code = Abnormal 26069-0) [facility] 10:58:48 Test Item Value Reference Range Interpretation Comments MAGNESIUM (test code = 4772748705) 1.4 mg/dL 1.7-2.4 L Lab Interpretation (test code = Abnormal 39306-5) [facility] (NA, K, CL, CO2, GLUCOSE, BUN, CREATININE, [place])2023-06-18 10:58:48 Test Item Value Reference Range Interpretation Comments NA (test code = 140 mmol/L 135-145 0186034214) K (test code = 4.0 mmol/L 3.5-5.0 Slight 6109094751) hemolysis CL (test code = 100 mmol/L 98-108 9389781307) CO2 TOTAL (test code 30 mmol/L 23-31 = 6468529770) AGAP (test code = 10 2-16 7576028608) BUN (test code = 10 mg/dL 7-23 Slight 3072879615) hemolysis GLUCOSE (test code = 164 mg/dL 70-110 H 4946220720) CREATININE (test code 0.54 mg/dL 0.50-1.04 = 9755330401) CALCIUM (test code = 8.8 mg/dL 8.6-10.6 9539528023) eGFR (test code = 116.8 mL/min/1.73m2 8939109074) HEATHER (test code = HEATHER) Association of Glomerular Filtration Rate (GFR) and Staging of Kidney Disease* + -----+ --------+ +| GFR (mL/min/1.73 m2) ?| With Kidney Damage ?| ?Without Kidney Damage+ +------- +---- --+| ?>90 ?| ?Stage one ?| ? Normal ?+ ------+ ---------+--------- +| ?60-89 ?| ?Stage two ?| ? Decreased GFR ? + -----+ --------+ +| ?30-59 ?| ?Stage three ?| ? Stage three ? + -----+ --------+ +| ?15-29 ?| ?Stage four ? | ? Stage four ?+ ------+ ---------+--------- +| ?<15 (or dialysis) ? ?| ?Stage five ? | ? Stage five ?+ ------+ ---------+--------- + *Each stage assumes the associated GFR level [...] tests). Lab Interpretation Abnormal (test code = 65211-4) [facility] WITH [id number] 09:37:22 Test Item Value Reference Range Interpretation Comments WBC (test code = 6.94 See_Comment [Automated 6690-2) message] The sy stem which generated this result transmitted reference range : 4.30 - 11.10 10*3/?L. The reference range was not used to interpret this result as normal/abnormal . RBC (test code = 4.83 See_Comment [Automated 789-8) message] The sy stem which generated this result transmitted reference range : 3.93 - 5.25 10*6/?L. The reference range was not used to interpret this result as normal/abnormal . HGB (test code = 15.1 g/dL 11.6-15.0 H 718-7) HCT (test code = 45.3 % 35.7-45.2 H 4544-3) MCV (test code = 93.8 fL 80.6-95.5 787-2) MCH (test code = 31.3 pg 25.9-32.8 785-6) MCHC (test code = 33.3 g/dL 31.6-35.1 786-4) RDW-SD (test code = 44.1 fL 39.0-49.9 28764-1) RDW-CV (test code = 12.7 % 12.0-15.5 788-0) PLT (test code = 210 See_Comment [Automated 777-3) message] The sy stem which generated this result transmitted reference range : 166 - 358 10*3/ ?L. The reference r pinky was not used to interpret this result as normal/abnormal . MPV (test code = 10.2 fL 9.5-12.9 65271-3) NRBC/100 WBC (test 0.0 See_Comment [Automat ed code = 9067093267) message] The system which generated this result transmitted reference range : 0.0 - 10.0 /100 WBCs. The refer ence range was not u sed to interpret th is result as normal/abnormal . NRBC x10^3 (test code See_Comment [Auto mated = 1669755689) message] The s ystem which generated this result transmitted reference range : 10*3/?L. The reference range was not used to interpret this result as normal/abnormal . GRAN MAT (NEUT) % 52.5 % (test code = 770-8) IMM GRAN % (test code 0.30 % = 2049573124) LYMPH % (test code = 30.5 % 736-9) MONO % (test code = 10.8 % 5905-5) EOS % (test code = 5.2 % 713-8) BASO % (test code = 0.7 % 706-2) GRAN MAT x10^3(ANC) 3.64 10*3/uL 1.88-7.09 (test code = 1172218661) IMM GRAN x10^3 (test 0.00-0.06 code = 7196368922) LYMPH x10^3 (test code 2.12 10*3/uL 1.32-3.29 = 731-0) MONO x10^3 (test code 0.75 10*3/uL 0.33-0.92 = 742-7) EOS x10^3 (test code = 0.36 10*3/uL 0.03-0.39 711-2) BASO x10^3 (test code 0.05 10*3/uL 0.01-0.07 = 704-7) Lab Interpretation Abnormal (test code = 46890-7) [facility]23-[facility]-18 01:57:13 Test Item Value Reference Range Interpretation Comments POCT GLU (test code = 3298135049) 221 mg/dL 70-110 H Lab Interpretation (test code = Abnormal 02718-9) [facility] Lipd [facility] (20854)(TOTAL CHOLESTEROL, TRIGLYCERIDES, HDL)2023-06-17 22:15:37 Test Item Value Reference Range Interpretation Comments CHOL (test code = 7271292585) 172 mg/dL 120-200 HDL (test code = 1844293979) 42 mg/dL >=50 L HDLC RATIO (test code = 8474668979) 4.1 <=4.5 TRIG (test code = 9577121122) 233 mg/dL 30-170 H LDL CHOL (test code = 98552-7) 83 mg/dL <=160 VLDL (test code = 7655335723) 47 mg/dL 5-60 Lab Interpretation (test code = Abnormal 73391-9) [facility] HospitalGlycosyated Hemoglobin (A1C)2023-06-17 22:11:42 Test Item Value Reference Range Interpretation Comments HGB A1C (test code = 9.4 % 4.0-5.7 H 4548-4) HEATHER (test code = HEATHER) Reference RangesNormal: <5.7%Prediabetes: 5.7 - 6.4%Diabetes: > 6.5% Lab Interpretation (test Abnormal code = 04838-3) [facility] Glucose (Age >30 Days) - Code Stroke 2023-06-17 20:46:00 Test Item Value Reference Range Interpretation Comments POCT Glu (age>30days) (test code = 190 mg/dL 70-110 A 3342) Lab Interpretation (test code = Abnormal 93176-3) [facility] Hospital[facility]roponin I - Code [id number] 20:28:48 Test Item Value Reference Range Interpretation Comments TROPONIN I (test code = 0.005 ng/mL <=0.034 3344410122) HEATHER (test code = HEATHER) Reference (Normal) [...] biotin. Lab Interpretation Normal (test code = 85831-6) [facility] Hospital[facility] Metabolic Panel (NA, K, CL, CO2, Glucose, BUN, Creatinine, CA) - Code [id number] 20:28:48 Test Item Value Reference Range Interpretation Comments NA (test code = 139 mmol/L 135-145 4747920505) K (test code = 4.0 mmol/L 3.5-5.0 8632375087) CL (test code = 99 mmol/L 98-108 3647996612) CO2 TOTAL (test code = 31 mmol/L 23-31 7497131019) AGAP (test code = 9 2-16 2202235405) BUN (test code = 13 mg/dL 7-23 9817305760) GLUCOSE (test code = 217 mg/dL 70-110 H 4526435324) CREATININE (test code = 0.62 mg/dL 0.50-1.04 0082873852) CALCIUM (test code = 9.1 mg/dL 8.6-10.6 4895008227) eGFR (test code = 99.6 mL/min/1.73m2 5184285867) HEATHER (test code = HEATHER) Association of [...] tests). Lab Interpretation Abnormal (test code = 80575-9) [facility]MINAL [id number] 20:28:48 Test Item Value Reference Range Interpretation Comments NT-proBNP (test code = 16457-6) 25 pg/mL <=125 Lab Interpretation (test code = Normal 89086-0) [facility])2023-06-17 20:10:15 Test Item Value Reference Range Interpretation Comments POCT GLU (test code = 2107708757) 198 mg/dL 70-110 H Lab Interpretation (test code = Abnormal 92333-2) [facility] without Diff - Code Csoqon2726-01-05 19:58:45 Test Item Value Reference Range Interpretation Comments WBC (test code = 6690-2) 9.12 See_Comment [A utomated message] The system [employer] generated this result transmit kaylie reference range : 4.30 - 11.10 10*3/?L. The reference range was not used to interpret this result as normal/abnormal . RBC (test code = 789-8) 4.81 See_Comment [Au tomated message] The system [employer] generated this result transmit kaylie reference range : 3.93 - 5.25 10* 6/?L. The reference r pinky was not used to interpret this result as normal/abnormal . HGB (test code = 718-7) 14.9 g/dL 11.6-15.0 HCT (test code = 4544-3) 45.6 % 35.7-45.2 H MCH (test code = 785-6) 31.0 pg 25.9-32.8 MCV (test code = 787-2) 94.8 fL 80.6-95.5 MCHC (test code = 786-4) 32.7 g/dL 31.6-35.1 PLT (test code = 777-3) 215 See_Comment [Au tomated message] The system [employer] generated this result transmit kaylie reference range : 166 - 358 10*3/?L. The reference range was not used to interpret this result as normal/abnormal . MPV (test code = 10.8 fL 9.5-12.9 75657-7) RDW-CV (test code = 12.8 % 12.0-15.5 788-0) RDW-SD (test code = 44.3 fL 39.0-49.9 49113-8) NRBC x10^3 (test code = See_Comment [Au tomated message] 3831241256) The system [employer] generated this result transmit kaylie reference range : 10*3/?L. The reference range was not used to interpret this result as normal/abnormal . NRBC/100 WBC (test code 0.0 See_Comment [Au tomated message] = 5042515602) The system [employer] generated this result transmit kaylie reference range : 0.0 - 10.0 /100 WBC s. The reference r pinky was not used to interpret this result as normal/abnormal . IPF % (test code = 8474811588) Lab Interpretation (test Abnormal code = 88301-5) [facility]th[facility] / INR - Code [id number] 19:58:04 Test Item Value Reference Range Interpretation Comments PROTIME PATIENT (test 11.8 See_Comment [Auto mated message] code = 5964-2) The system [employer] [facility] generated this result transmitted ref erence range: 10.1 - 1 2.6 Seconds. The re ference range was not u sed to interpret this result as normal/abnor mal. INR (test code = 6301-6) 1.0 Nor mal INR <1.1; Warfarin Therap eutic range 2.0 to 3. 0 or 2.5 to 3.5, dep ending upon the indica tions. Lab Interpretation (test Normal code = 81745-4) [facility] HospitalaPTT - Code Itiznq1939-63-95 19:58:04 Test Item Value Reference Range Interpretation Comments APTT Patient (test code = 31 See_Comment [ Automated message] 3173-2) The system [employer] generated this result transmitted ref erence range: 26 - 36 Seconds. The re ference range was not u sed to interpret this result as normal/abnor mal. Lab Interpretation (test Normal code = 38487-3) [facility] Hospital[facility] WITH [id number] 03:33:11 Test Item Value Reference Range Interpretation Comments WBC (test code = 6.84 See_Comment Previous 6690-2) preliminary verified result was 6.87 10*3/?L on 05/26/2023 at 22 32 CDT [Automated message] The sy stem which generated this result transmitted reference range : 4.30 - 11.10 10*3/?L. The reference range was not used to interpret this result as normal/abnormal . RBC (test code = 4.72 See_Comment Previous 789-8) preliminary verified result was 4.73 10*6/?L on 05/26/2023 at 22 32 CDT [Automated message] The sy stem which generated this result transmitted reference range : 3.93 - 5.25 10*6/?L. The reference range was not used to interpret this result as normal/abnormal . HGB (test code = 15.2 g/dL 11.6-15.0 H Previous 718-7) preliminary verified result was 14.9 g/dL on 05/26/2023 at 22 32 CDT HCT (test code = 43.7 % 35.7-45.2 Previous 4544-3) preliminary verified result was 43.9 % on 2022 at 2232 CDT MCV (test code = 92.6 fL 80.6-95.5 Previous 787-2) preliminary verified result was 92.8 fL on 05/26/2023 at 22 32 CDT MCH (test code = 32.2 pg 25.9-32.8 Previous 785-6) preliminary verified result was 31.5 pg on 05/26/2023 at 22 32 CDT MCHC (test code = 34.8 g/dL 31.6-35.1 Previous 786-4) preliminary verified result was 33.9 g/dL on 05/26/2023 at 22 32 CDT RDW-SD (test code = 42.4 fL 39.0-49.9 Previous 67986-4) preliminary verified result was 42.7 fL on 05/26/2023 at 22 32 CDT RDW-CV (test code = 12.4 % 12.0-15.5 788-0) PLT (test code = 217 See_Comment Previous 777-3) preliminary verified result was 214 10*3/?L on 05/26/2023 at 22 32 CDT [Automated message] The sy stem which generated this result transmitted reference range : 166 - 358 10*3/ ?L. The reference r pinky was not used to interpret this result as normal/abnormal . MPV (test code = 10.6 fL 9.5-12.9 91766-9) NRBC/100 WBC (test 0.0 See_Comment [Automat ed code = 6960438238) message] The system which generated this result transmitted reference range : 0.0 - 10.0 /100 WBCs. The refer ence range was not u sed to interpret th is result as normal/abnormal . NRBC x10^3 (test code See_Comment [Auto mated = 3964838611) message] The s ystem which generated this result transmitted reference range : 10*3/?L. The reference range was not used to interpret this result as normal/abnormal . SEG % (test code = 46 % 33-76 25878-3) BAND % (test code = 4 % 0-1 H 77596-8) LYMPH % (test code = 32 % 14-54 00899-3) REACT LYMPH % (test 2 % code = 2634695837) MONO % (test code = 13 % 0-4 H 74032-3) EOS % (test code = 3 % 0-3 15092-0) ANC (test code = 3.42 10*3/uL 1.88-7.09 753-4) Lab Interpretation Abnormal (test code = 18863-5) [facility] [id number] 03:18:28 Test Item Value Reference Range Interpretation Comments TROPONIN I (test code = 0.003 ng/mL <=0.034 3968496056) HEATHER (test code = HEATHER) Reference (Normal) [...] biotin. Lab Interpretation Normal (test code = 80226-3) [facility] Hospital[facility]MINAL [id number] 03:16:07 Test Item Value Reference Range Interpretation Comments NT-proBNP (test code = 30060-5) 31 pg/mL <=125 Lab Interpretation (test code = Normal 11522-7) [facility] HospitalProthrombin Time / [id number] 03:09:09 Test Item Value Reference Range Interpretation Comments PROTIME PATIENT (test 14.1 See_Comment [Auto mated message] code = 5964-2) The system [employer] generated this result transmitted ref erence range: 12.0 - 1 4.7 Seconds. The re ference range was not u sed to interpret this result as normal/abnor mal. INR (test code = 6301-6) 1.1 Nor mal INR <1.1; Warfarin Therap eutic range 2.0 to 3. 0 or 2.5 to 3.5, dep ending upon the indica tions. Lab Interpretation (test Normal code = 78745-6) [facility] HospitalCOM. METABOLIC PANEL (25470)2023-05-27 03:07:08 Test Item Value Reference Range Interpretation Comments NA (test code = 139 mmol/L 135-145 4255367503) K (test code = 3.6 mmol/L 3.5-5.0 2106955167) CL (test code = 99 mmol/L 98-108 7961254905) CO2 TOTAL (test code = 31 mmol/L 23-31 0208955127) AGAP (test code = 9 2-16 1756304212) BUN (test code = 10 mg/dL 7-23 4970749266) GLUCOSE (test code = 151 mg/dL 70-110 H 2841067168) CREATININE (test code = 0.74 mg/dL 0.50-1.04 3927444433) TOTAL BILI (test code = 0.5 mg/dL 0.1-1.6 0047423135) CALCIUM (test code = 9.3 mg/dL 8.6-10.6 8098538548) T PROTEIN (test code = 7.7 g/dL 6.3-8.2 8010410577) ALBUMIN (test code = 4.2 g/dL 3.5-5.0 5898624300) ALK PHOS (test code = 98 U/L 34-122 5114715224) ALTv (test code = 41 U/L 5-35 H 1742-6) AST(SGOT) (test code = 41 U/L 13-40 H 9311957811) eGFR (test code = 81.2 mL/min/1.73m2 9113149802) HEATHER (test code = HEATHER) Association of [...] tests). Lab Interpretation Abnormal (test code = 33790-5) [facility] [id number] 18:11:00 Test Item Value Reference Range Interpretation [...] given. Lab Interpretation Abnormal (test code = 25416-2) [facility] [id number] 18:11:00 Test Item Value Reference Range Interpretation [...] given. Lab Interpretation Abnormal (test code = 79689-9) [facility] [id number] 18:11:00 Test Item Value Reference Range Interpretation [...] given. Lab Interpretation Abnormal (test code = 65591-4) [facility] [id number] 18:11:00 Test Item Value Reference Range Interpretation [...] given. Lab Interpretation Abnormal (test code = 28838-2) [facility] [id number] 18:11:00 Test Item Value Reference Range Interpretation [...] given. Lab Interpretation Abnormal (test code = 54660-8) [facility] Tpedw5934-59-56 18:11:00 Test Item Value Reference Range Interpretation [...] given. Lab Interpretation Abnormal (test code = 97199-7) [facility] Ilhoq3480-76-71 18:11:00 Test Item Value Reference Range Interpretation [...] given. Lab Interpretation Abnormal (test code = 20699-1) [facility] Alwju7085-82-24 18:11:00 Test Item Value Reference Range Interpretation [...] given. Lab Interpretation Abnormal (test code = 96595-2) [facility] Kkcsf1978-44-71 18:11:00 Test Item Value Reference Range Interpretation [...] given. Lab Interpretation Abnormal (test code = 63066-7) [facility] Glucose [id number] 17:09:21 Test Item Value Reference Interpretation Comments [...] Capillary code = 9554) Performing Lab (test [facility] code = 77077) [facility], [address] [facility] [place] [address]; Supervisor Front: Margarita Jacob MD; Waived Point of Care Testing - Gabrielle aaron MD Lab Interpretation Abnormal (test code = 01303-5) [facility] Glucose Enozqe2488-17-84 17:09:21 Test Item Value Reference Interpretation Comments [...] Capillary code = 9554) Performing Lab (test [facility] code = 83323) [facility] Cli nical Lab, [address], [place] [address]; Supervisor Front: Margarita Jacob MD; Waived Point of Care Testing - Gabrielle aaron MD Lab Interpretation Abnormal (test code = 47914-2) [facility] Glucose [id number] 17:09:21 Test Item Value Reference Interpretation Comments [...] Capillary code = 9554) Performing Lab (test [facility] [place] code = 05700) [facility] Cli nical Lab, [address], [place] [address]; Supervisor Front: Margarita Jacob MD; Waived Point of Care Testing - Gabrielle aaron MD Lab Interpretation Abnormal (test code = 58015-0) [facility] Glucose [id number] 17:09:21 Test Item Value Reference Interpretation Comments [...] Capillary code = 9554) Performing Lab (test [facility] code = 66982) [facility] Cli nical Lab, [address] [place] [address]; Supervisor Front: Margarita Jacob MD; Waived Point of Care Testing - Gabrielle aaron MD Lab Interpretation Abnormal (test code = 95422-5) [facility] Glucose [id number] 17:09:21 Test Item Value Reference Interpretation Comments [...] Capillary code = 9554) Performing Lab (test [facility] code = 23196) [facility] Cli nical Lab, [address] [place] [address]; Supervisor Front: Margarita Jacob MD; Waived Point of Care Testing - Gabrielle aaron MD Lab Interpretation Abnormal (test code = 69343-3) [facility] Glucose [id number] 17:09:21 Test Item Value Reference Interpretation Comments [...] Capillary code = 9554) Performing Lab (test [facility] code = 42028) [facility] Cli nical Lab, [address] [place] [address]; Supervisor Front: Margarita Jacob MD; Waived Point of Care Testing - Gabrielle aaron MD Lab Interpretation Abnormal (test code = 76327-8) [facility] Glucose [id number] 17:09:21 Test Item Value Reference Interpretation Comments [...] Capillary code = 9554) Performing Lab (test [facility] code = 66768) [facility] Cli nical Lab, [address], [place] [address]; Supervisor Front: Margarita Jacob MD; Waived Point of Care Testing - Gabrielle aaron MD Lab Interpretation Abnormal (test code = 10402-5) [facility] Glucose [id number] 17:09:21 Test Item Value Reference Interpretation Comments [...] Capillary code = 9554) Performing Lab (test [facility] code = 33693) [facility] [address] [facility] [place] [address]; Supervisor Front: Margarita Jacob MD; Waived Point of Care Testing - Gabrielle aaron MD Lab Interpretation Abnormal (test code = 79380-8) [facility] Glucose [id number] 17:09:21 Test Item Value Reference Interpretation Comments [...] te st results by core lab methodology. Mn thod description: Al l results are soraya sured using Electrochemistr y test methodology. Th e glucose in the sample mixes with the reagents on the test strip. The reac tion produces an cristine ctric current. The am ount of current prod uced is proportional to the glucose concentration i n the blood. PO Sample Type (test Capillary code = 9554) Performing Lab (test [facility] code = 31897) [facility] Cli nical Lab, [address], [place] [address]; Supervisor Front: Margarita Jacob MD; Waived Point of Care Testing - Gabrielle aaron MD Lab Interpretation Abnormal (test code = 17855-8) [facility] Oyuhj8514-24-12 12:26:50 Test Item Value Reference Range Interpretation Comments Phosphorus (test code = 2777-1) 4.3 mg/dL 2.5-4.5 [facility] [id number] 12:26:50 Test Item Value Reference Range Interpretation Comments Phosphorus (test code = 2777-1) 4.3 mg/dL 2.5-4.5 [facility] [id number] 12:26:50 Test Item Value Reference Range Interpretation Comments Phosphorus (test code = 2777-1) 4.3 mg/dL 2.5-4.5 [facility] Kvshc1773-08-77 12:26:50 Test Item Value Reference Range Interpretation Comments Phosphorus (test code = 2777-1) 4.3 mg/dL 2.5-4.5 [facility] [id number] 12:26:50 Test Item Value Reference Range Interpretation Comments Phosphorus (test code = 2777-1) 4.3 mg/dL 2.5-4.5 [facility] Xpgje0468-10-40 12:26:50 Test Item Value Reference Range Interpretation Comments Phosphorus (test code = 2777-1) 4.3 mg/dL 2.5-4.5 [facility] Mzlos2388-83-44 12:26:50 Test Item Value Reference Range Interpretation Comments Phosphorus (test code = 2777-1) 4.3 mg/dL 2.5-4.5 [facility] Ptiey6823-37-86 12:26:50 Test Item Value Reference Range Interpretation Comments Phosphorus (test code = 2777-1) 4.3 mg/dL 2.5-4.5 [facility] [id number] 12:26:50 Test Item Value Reference Range Interpretation Comments Phosphorus (test code = 2777-1) 4.3 mg/dL 2.5-4.5 [facility] Solrqoj0301-67-31 16:10:55 Test Item Value Reference Range Interpretation Comments Final Report (test code = 8488) [facility] Dqbajcw1825-70-83 16:10:55 Test Item Value Reference Range Interpretation Comments Final Report (test code = 8488) No growth [facility] Devvamd7157-59-39 16:10:55 Test Item Value Reference Range Interpretation Comments Final Report (test code = 8488) No growth [facility]2023-04-14 16:10:55 Test Item Value Reference Range Interpretation Comments Final Report (test code = 8488) No growth [facility] [id number] 16:10:55 Test Item Value Reference Range Interpretation Comments Final Report (test code = 8488) No growth [facility] [id number] 16:10:55 Test Item Value Reference Range Interpretation Comments Final Report (test code = 8488) No growth [facility]2023-04-14 16:10:55 Test Item Value Reference Range Interpretation Comments Final Report (test code = 8488) No growth [facility] [id number] 16:10:55 Test Item Value Reference Range Interpretation Comments Final Report (test code = 8488) No growth [facility]2023-04-14 16:10:55 Test Item Value Reference Range Interpretation Comments Final Report (test code = 8488) No growth [facility] 16:06:17 Test Item Value Reference Range Interpretation Comments Procalcitonin (test 0.38 ng/mL <=0.08 H Procalci tonin > 2.00 code = 97348-3) ng/mL: Proca lcitonin levels above 2. 00 [...] extended diluti on as it exceeds the baby stroller rental clerk's recommended goldberg it. Caution should be exercised when interpreting [place] ch values and done in conjunction wit clinical contex t. Lab Interpretation Abnormal (test code = 27253-1) [facility] 16:06:17 Test Item Value Reference Range Interpretation Comments Procalcitonin (test 0.38 ng/mL <=0.08 H Procalci tonin > 2.00 code = 26997-2) ng/mL: Proca lcitonin levels above 2. 00 [...] extended diluti on as it exceeds the baby stroller rental clerk's recommended goldberg it. Caution should be exercised when interpreting [place] ch values and done in conjunction [facility] clinical contex t. Lab Interpretation Abnormal (test code = 49805-3) [facility] 16:06:17 Test Item Value Reference Range Interpretation Comments Procalcitonin (test 0.38 ng/mL <=0.08 H Procalci tonin > 2.00 code = 10406-8) ng/mL: Proca lcitonin levels above 2. 00 [...] extended diluti on as it exceeds the baby stroller rental clerk's recommended goldberg it. Caution should be exercised when interpreting lancaster ch values and done in conjunction wit clinical contex t. Lab Interpretation Abnormal (test code = 91056-8) [facility] 16:06:17 Test Item Value Reference Range Interpretation Comments Procalcitonin (test 0.38 ng/mL <=0.08 H Procalci tonin > 2.00 code = 16588-2) ng/mL: Proca lcitonin levels above 2. 00 [...] extended diluti on as it exceeds the baby stroller rental clerk's recommended goldberg it. Caution should be exercised when interpreting l[place] ch values and done in conjunction wit clinical contex t. Lab Interpretation Abnormal (test code = 02384-7) [facility] 16:06:17 Test Item Value Reference Range Interpretation Comments Procalcitonin (test 0.38 ng/mL <=0.08 H Procalci tonin > 2.00 code = 73866-4) ng/mL: Proca lcitonin levels above 2. 00 [...] extended diluti on as it exceeds the baby stroller rental clerk's recommended goldberg it. Caution should be exercised when interpreting [place] ch values and done in conjunction wit clinical Kobojox t. Lab Interpretation Abnormal (test code = 99931-9) [facility] 16:06:17 Test Item Value Reference Range Interpretation Comments Procalcitonin (test 0.38 ng/mL <=0.08 H Procalci tonin > 2.00 code = 28896-4) ng/mL: Proca lcitonin levels above 2. 00 [...] extended diluti on as it exceeds the baby stroller rental clerk's recommended goldberg it. Caution should be exercised when interpreting l[place] ch values and done in conjunction wit clinical Kobojox t. Lab Interpretation Abnormal (test code = 31270-2) [facility] 16:06:17 Test Item Value Reference Range Interpretation Comments Procalcitonin (test 0.38 ng/mL <=0.08 H Procalci tonin > 2.00 code = 13366-2) ng/mL: Proca lcitonin levels above 2. 00 [...] extended diluti on as it exceeds the baby stroller rental clerk's recommended goldberg it. Caution should be exercised when interpreting [place] ch values and done in conjunction wit clinical contex t. Lab Interpretation Abnormal (test code = 03701-5) [facility] 16:06:17 Test Item Value Reference Range Interpretation Comments Procalcitonin (test 0.38 ng/mL <=0.08 H Procalci tonin > 2.00 code = 32376-0) ng/mL: Proca lcitonin levels above 2. 00 [...] extended diluti on as it exceeds the baby stroller rental clerk's recommended goldberg it. Caution should be exercised when interpreting l[place] ch values and done in conjunction wit clinical contex t. Lab Interpretation Abnormal (test code = 34060-4) [facility] 16:06:17 Test Item Value Reference Range Interpretation Comments Procalcitonin (test 0.38 ng/mL <=0.08 H Procalci tonin > 2.00 code = 48665-7) ng/mL: Proca lcitonin levels above 2. 00 [...] extended diluti on as it exceeds the baby stroller rental clerk's recommended goldberg it. Caution should be exercised when interpreting [place] ch values and done in conjunction wit h clinical contex t. Lab Interpretation Abnormal (test code = 15174-2) [facility] Laboratory Add-On Test 2023-02-12 15:17:04 Test Item Value Reference Range Interpretation Comments Ordered (test code = 6568) Test Added Test Needed (test code = 7604) procalcitonin [facility] Laboratory Add-On Test 2023-02-12 15:17:04 Test Item Value Reference Range Interpretation Comments Ordered (test code = 6568) Test Added Test Needed (test code = 7604) procalcitonin [facility] Laboratory Add-On Test 2023-02-12 15:17:04 Test Item Value Reference Range Interpretation Comments Ordered (test code = 6568) Test Added Test Needed (test code = 7604) procalcitonin [facility] Laboratory Add-On Test 2023-02-12 15:17:04 Test Item Value Reference Range Interpretation Comments Ordered (test code = 6568) Test Added Test Needed (test code = 7604) procalcitonin [facility] Laboratory Add-On Test 2023-02-12 15:17:04 Test Item Value Reference Range Interpretation Comments Ordered (test code = 6568) Test Added Test Needed (test code = 7604) [facility] 2023-02-12 15:17:04 Test Item Value Reference Range Interpretation Comments Ordered (test code = 6568) Test Added Test Needed (test code = 7604) [facility]-On Test 2023-02-12 15:17:04 Test Item Value Reference Range Interpretation Comments Ordered (test code = 6568) Test Added Test Needed (test code = 7604) [facility] 2023-02-12 15:17:04 Test Item Value Reference Range Interpretation Comments Ordered (test code = 6568) Test Added Test Needed (test code = 7604) [facility] 2023-02-12 15:17:04 Test Item Value Reference Range Interpretation Comments Ordered (test code = 6568) Test Added Test Needed (test code = 7604) [facility]Ad[facility] BrookCreat[facility] [id number] 12:16:45 Test Item Value Reference Range Interpretation Comments CK (test code = 2157-6) 125 U/L 26-192 [facility] Jffadt0512-86-04 12:16:45 Test Item Value Reference Range Interpretation Comments CK (test code = 2157-6) 125 U/L 26-192 [facility] Yruwyy8667-06-24 12:16:45 Test Item Value Reference Range Interpretation Comments CK (test code = 2157-6) 125 U/L 26-192 [facility] Trdqgj3894-74-72 12:16:45 Test Item Value Reference Range Interpretation Comments CK (test code = 2157-6) 125 U/L 26-192 [facility] Aidkvc6702-71-25 12:16:45 Test Item Value Reference Range Interpretation Comments CK (test code = 2157-6) 125 U/L 26-192 [facility] Jbiyca6556-99-22 12:16:45 Test Item Value Reference Range Interpretation Comments CK (test code = 2157-6) 125 U/L 26-192 [facility] Mccsrr3956-41-57 12:16:45 Test Item Value Reference Range Interpretation Comments CK (test code = 2157-6) 125 U/L 26-192 [facility] Qwocox4207-84-79 12:16:45 Test Item Value Reference Range Interpretation Comments CK (test code = 2157-6) 125 U/L 26-192 [facility] Aazgvx9649-71-85 12:16:45 Test Item Value Reference Range Interpretation Comments CK (test code = 2157-6) 125 U/L 26-192 [facility]-1/2 Antigen and Antibodies, Fourth Eadqtxploy6174-05-37 07:28:44 Test Item Value Reference Range Interpretation Comments HIV Ag/Ab, NON-REACTIVE NON-REACTIVE HIV-1 antigen a nd 4TH Gen (test HIV-1/HIV-2 an tibodies were code = 98736) notdetected. T here is no laboratory evid [...] pertains, or as otherwise permitted by maryjo w.A general authorization f or the release of medi mari orother information is NOT sufficient for this purpose. For additional information please refer tohttp://educat ion.Mind The Place.com/faq /XAH870(This link is being p rovided for informational/e ducational purposes only.) The performance of this assay has not been clinicallyvalid ated in patients less t go 2 years old. Lab test p erformed by:Lab Mnemonic : [employer] [id number] [place] [address]JDJKXJAKE MELÉNDEZ MD [facility]/2 Antigen and Antibodies, Fourth Azczuklbct5444-61-96 07:28:44 Test Item Value Reference Range Interpretation Comments HIV Ag/Ab, NON-REACTIVE NON-REACTIVE HIV-1 antigen a nd 4TH Gen (test HIV-1/HIV-2 an tibodies were code = 43958) notdetected. T here is no laboratory evid [...] this purpose. For additional information please refer tohttp://[employer]/faq /QLG368(This link is being p rovided for informational/e ducational purposes only.) The performance of this assay has not been clinicallyvalid ated in patients less t go 2 years old. Lab test p erformed by:Lab Mnemonic : [employer] [id number] [place] [address]URVGX Christelle MELÉNDEZ MD [facility] MD [facility] Antibodies, Fourth Xngetrruqx2184-90-49 07:28:44 Test Item Value Reference Range Interpretation Comments HIV Ag/Ab, NON-REACTIVE NON-REACTIVE HIV-1 antigen a nd 4TH Gen (test HIV-1/HIV-2 an tibodies were code = 00698) notdetected. T here is no laboratory evid [...] this purpose. For additional information please refer tohttp://[employer]/faq /RTQ728(This link is being p rovided for informational/e ducational purposes only.) The performance of this assay has not been clinicallyvalid ated in patients less t go 2 years old. Lab test p erformed by:Lab Mnemonic : [employer] [id number] [place] [address]YTWHHJAKE MELÉNDEZ MD [facility]2 Antigen and Antibodies, Fourth Uqyvpiorxp0047-18-91 07:28:44 Test Item Value Reference Range Interpretation Comments HIV Ag/Ab, NON-REACTIVE NON-REACTIVE HIV-1 antigen a nd 4TH Gen (test HIV-1/HIV-2 an tibodies were code = 50330) notdetected. T here is no laboratory evid [...] authorization f or the release of medi [facility] orother information is NOT sufficient for this purpose. For additional information please refer tohttp://educat ion.Mind The Place.Boxbee/faq /YNI048(This link is being p rovided for informational/e ducational purposes only.) The performance of this assay has not been clinicallyvalid ated in patients less t go 2 years old. Lab test p erformed by:Lab Mnemonic : [employer] [id number] [place] [address]IXRXOJAKE MELÉNDEZ MD [facility]/2 Antigen and Antibodies, Fourth Xjpcxsmvkj6942-67-97 07:28:44 Test Item Value Reference Range Interpretation Comments HIV Ag/Ab, NON-REACTIVE NON-REACTIVE HIV-1 antigen a nd 4TH Gen (test HIV-1/HIV-2 an tibodies were code = 24773) notdetected. T here is no laboratory evid ence of HIVinfection. P LEASE NOTE: This informatio n has been disclosed toyou from records whose confident iality may beprotected by state law. If your state requ ires suchprotection, then the state law prohi bits you frommaking any further disclosure of t he informationwith out the specific writte n consent of the [facility] it pertains, or as otherwise permitted by [place] w.A general authorization f or the release of medi mari orother information is NOT sufficient for this purpose. For additional information please refer tohttp://Rek[employer]at [employer] Escapes.[employer]/faq /BPT633(This link is being p rovided for informational/e ducational purposes only.) The performance of this assay has not been clinicallyvalid ated in patients less t go 2 years old. Lab test p erformed by:Lab Mnemonic : [employer] [id number] [place] [address]MIXWUJAKE MELÉNDEZ MD [facility]HIV-1/2 Antigen and Antibodies, Fourth Sfkstxmpxe4960-73-22 07:28:44 Test Item Value Reference Range Interpretation Comments HIV Ag/Ab, NON-REACTIVE NON-REACTIVE HIV-1 antigen a nd 4TH Gen (test HIV-1/HIV-2 an [facility] were code = 29868) notdetected. T here is no laboratory evid [...] purpose. For additional information please refer tohttp://educat Secret Escapes.Mind [employer] Place.Boxbee/faq /ZNI975(This link is being p rovided for informational/e ducational purposes only.) The performance of this assay has not been clinicallyvalid ated in patients less t go 2 years old. Lab test p erformed by:Lab Mnemonic : [employer] [id number] [place] [address]SXPQLJAKE MELÉNDEZ MD [facility]HIV-1/2 Antigen and Antibodies, Fourth Aylyfmhsrh4167-28-13 07:28:44 Test Item Value Reference Range Interpretation Comments HIV Ag/Ab, NON-REACTIVE NON-REACTIVE HIV-1 antigen a nd 4TH Gen (test HIV-1/HIV-2 an tibodies were code = 52646) notdetected. T here is no laboratory evid [...] purpose. For additional information please refer tohttp://educat ion.Mind The Place.Boxbee/faq /BWM082(This link is being p rovided for informational/e ducational purposes only.) The performance of this assay has not been clinicallyvalid ated in patients less t go 2 years old. Lab test p erformed by:Lab Mnemonic : [employer] [id number] [place] [address]SXEZTJAKE MELÉNDEZ MD [facility]/2 Antigen and Antibodies, Ckjoqaeidr5018-14-87 07:28:44 Test Item Value Reference Range Interpretation Comments HIV Ag/Ab, NON-REACTIVE NON-REACTIVE HIV-1 antigen a nd 4TH Gen (test HIV-1/HIV-2 an tibodies were code = 40742) notdetected. T here is no laboratory evid ence of HIVinfection. P LEASE NOTE: This informatio n has been disclosed toyou from records whose confident iality may beprotected by state law. If your state requ ires suchprotection, then the state law prohi bits you frommaking any further disclosure of t he informationwith out the specific writte n consent of the [facility] it pertains, or as otherwise permitted by la w.A general authorization f or the release of medi mari orother information is NOT sufficient for this purpose. For additional information please refer tohttp://educat ion.[employer]/faq /IAF646(This link is being p rovided for informational/e ducational purposes only.) The performance of this assay has not been clinicallyvalid ated in patients less t go 2 years old. Lab test p erformed by:Lab Mnemonic : [employer] [id number] [place] [address]XLEUGJAKE MELÉNDEZ MD [facility]HIV-1/2 Antigen and Antibodies, Fourth Lcmshddiic8258-31-19 07:28:44 Test Item Value Reference Range Interpretation Comments HIV Ag/Ab, NON-REACTIVE NON-REACTIVE HIV-1 antigen a nd 4TH Gen (test HIV-1/HIV-2 an tibboston [facility] were code = 65139) notdetected. T here is no laboratory evid ence of HIVinfection. P SRINATH NOTE: This informatio n has been disclosed toyou from records whose confident iality may beprotected by state law. If your state requ ires suchprotection, then the state law prohi bits you frommaking any further disclosure of t he informationwith out the specific writte n consent of the [facility] it pertains, or as otherwise permitted by la w.A general authorization f or the release of medi mari orother information is NOT sufficient for this purpose. For additional information please refer tohttp://educat Secret Escapes.Mind [employer] Place.Boxbee/faq /HZK182(This link is being p rovided for informational/e ducational purposes only.) The performance of this assay has not been clinicallyvalid ated in patients less t go 2 years old. Lab test p erformed by:Lab Mnemonic : [employer] [address] [id number] [place] [address]SIAFEJAKE MELÉNDEZ MD [facility] Hyugqbl6601-00-31 13:51:10 Test Item Value Reference Range Interpretation Comments Final Report (test code = 10 - 50,000 cfu/ml A 8488) Normal site isabel present.Generally of low significance.Correl ate with clinical data and culture history. Lab Interpretation (test Abnormal code = 06212-5) [facility] Tpfnody8004-72-88 13:51:10 Test Item Value Reference Range Interpretation Comments Final Report (test code = 10 - 50,000 cfu/ml A 8488) Normal site isabel present.Generally of low significance.Correl ate with clinical data and culture history. Lab Interpretation (test Abnormal code = 70207-6) [facility] Wqnmopo6090-90-67 13:51:10 Test Item Value Reference Range Interpretation Comments Final Report (test code = 10 - 50,000 cfu/ml A 8488) Normal site isabel present.Generally of low significance.Correl ate with clinical data and culture history. Lab Interpretation (test Abnormal code = 47703-7) [facility] Symoucj7421-62-01 13:51:10 Test Item Value Reference Range Interpretation Comments Final Report (test code = 10 - 50,000 cfu/ml A 8488) Normal site isabel present.Generally of low significance.Correl ate with clinical data and culture history. Lab Interpretation (test Abnormal code = 04637-6) [facility] Tsqftae9935-46-74 13:51:10 Test Item Value Reference Range Interpretation Comments Final Report (test code = 10 - 50,000 cfu/ml A 8488) Normal site isabel present.Generally of low significance.Correl ate with clinical data and culture history. Lab Interpretation (test Abnormal code = 36716-0) [facility] Lxtdbcb6228-30-35 13:51:10 Test Item Value Reference Range Interpretation Comments Final Report (test code = 10 - 50,000 cfu/ml A 8488) Normal site isabel present.Generally of low significance.Correl ate with clinical data and culture history. Lab Interpretation (test Abnormal code = 70874-4) [facility] Bwgjhdu2627-15-95 13:51:10 Test Item Value Reference Range Interpretation Comments Final Report (test code = 10 - 50,000 cfu/ml A 8488) Normal site isabel present.Generally of low significance.Correl ate with clinical data and culture history. Lab Interpretation (test Abnormal code = 63300-7) [facility] Mvyrgkq6561-43-79 13:51:10 Test Item Value Reference Range Interpretation Comments Final Report (test code = 10 - 50,000 cfu/ml A 8488) Normal site isabel present.Generally of low significance.Correl ate with clinical data and culture history. Lab Interpretation (test Abnormal code = 29804-7) [facility] Wvcmpbc6020-33-25 13:51:10 Test Item Value Reference Range Interpretation Comments Final Report (test code = 10 - 50,000 cfu/ml A 8488) Normal site isabel present.Generally of low significance.Correl ate with clinical data and culture history. Lab Interpretation (test Abnormal code = 04250-3) [facility] [id number] 21:40:55GIMP PRReviewed and Electronically signed by Pathologist:PATRICIA CHAVEZ MD [facility][id number] [facility] HospitalGastrointestinal Multiplex Panel Path Review 2023-02-07 21:40:55GIMP PRReviewed and Electronically signed by Pathologist:PATRICIA CHAVEZ MD #[id number] [facility]Un[facility] HospitalGastrointestinal Multiplex Panel Path Review 2023-02-07 21:40:55GIMP PRReviewed and Electronically signed by Pathologist:PATRICIA CHAVEZ MD #[id number] [facility]Un[facility] HospitalGastrointestinal Multiplex Panel Path Review 2023-02-07 21:40:55GIMP PRReviewed and Electronically signed by Pathologist:PATRICIA CHAVEZ MD #[id number] [facility]Un[facility] HospitalGastrointestinal Multiplex Panel Path Review 2023-02-07 21:40:55GIMP PRReviewed and Electronically signed by Pathologist:PATRICIA CHAVEZ MD #[id number] [facility]Un[facility] HospitalGastrointestinal Multiplex Panel Path Review 2023-02-07 21:40:55GIMP PRReviewed and Electronically signed by Pathologist:PATRICIA CHAVEZ MD #[id number] [facility]Un[facility] HospitalGastrointestinal Multiplex Panel Path Review 2023-02-07 21:40:55GIMP PRReviewed and Electronically signed by Pathologist:PATRICIA CHAVEZ MD #[id number] [facility]Un[facility] HospitalGastrointestinal Multiplex Panel Path Review 2023-02-07 21:40:55GIMP PRReviewed and Electronically signed by Pathologist:PATRICIA CHAVEZ MD #[id number] [facility]Un[facility] HospitalGastrointestinal Multiplex Panel Path Review 2023-02-07 21:40:55GIMP PRReviewed and Electronically signed by Pathologist:PATRICIA CHAVEZ MD #[id number] [facility]ENTERUn[facility] Taub HospitalClostridium Difficile DNA Path Review 2023-02-07 21:35:15C diff DNA PRReviewed and Electronically signed by Pathologist:PATRICIA CHAVEZ MD #[id number] [facility]Un[facility] HospitalClostridium Difficile DNA Path Review 2023-02-07 21:35:15C diff DNA PRReviewed and Electronically signed by Pathologist:PATRICIA CHAVEZ MD #[id number] [facility]Un[facility] HospitalClostridium Difficile DNA Path Review 2023-02-07 21:35:15C diff DNA PRReviewed and Electronically signed by Pathologist:PATRICIA CHAVEZ MD #[id number] [facility]Un[facility] HospitalClostridium Difficile DNA Path Review 2023-02-07 21:35:15C diff DNA PRReviewed and Electronically signed by Pathologist:PATRICIA CHAVEZ MD #[id number] [facility]Un[facility] HospitalClostridium Difficile DNA Path Review 2023-02-07 21:35:15C diff DNA PRReviewed and Electronically signed by Pathologist:PATRICIA CHAVEZ MD #[id number] [facility]Un[facility] HospitalClostridium Difficile DNA Path Review 2023-02-07 21:35:15C diff DNA PRReviewed and Electronically signed by Pathologist:PATRICIA CHAVEZ MD #[id number] [facility]Un[facility] HospitalClostridium Difficile DNA Path Review 2023-02-07 21:35:15C diff DNA PRReviewed and Electronically signed by Pathologist:PATRICIA CHAVEZ MD #[id number] [facility]Un[facility] HospitalClostridium Difficile DNA Path Review 2023-02-07 21:35:15C diff DNA PRReviewed and Electronically signed by Pathologist:PATRICIA CHAVEZ MD #[id number] [facility]Un[facility] HospitalClostridium Difficile DNA Path Review 2023-02-07 21:35:15C diff DNA PRReviewed and Electronically signed by Pathologist:PATRICIA CHAVEZ MD #[id number] [facility]ENTERUn[facility] HospitalHepatitis B Surface [id number] 17:09:39 Test Item Value Reference Range Interpretation Comments HBsAg. (test code = 5747) Non Reactive Non Reactive [facility] [id number] 17:09:39 Test Item Value Reference Range Interpretation Comments HBsAg. (test code = 5747) Non Reactive Non Reactive [facility] B Surface [id number] 17:09:39 Test Item Value Reference Range Interpretation Comments HBsAg. (test code = 5747) Non Reactive Non Reactive [facility] B Surface [id number] 17:09:39 Test Item Value Reference Range Interpretation Comments HBsAg. (test code = 5747) Non Reactive Non Reactive [facility]Hep[facility] Surface [id number] 17:09:39 Test Item Value Reference Range Interpretation Comments HBsAg. (test code = 5747) Non Reactive Non Reactive [facility] HospitalHep[facility] Surface [id number] 17:09:39 Test Item Value Reference Range Interpretation Comments HBsAg. (test code = 5747) Non Reactive Non Reactive [facility] B Surface [id number] 17:09:39 Test Item Value Reference Range Interpretation Comments HBsAg. (test code = 5747) Non Reactive Non Reactive [facility] Surface [id number] 17:09:39 Test Item Value Reference Range Interpretation Comments HBsAg. (test code = 5747) Non Reactive Non Reactive [facility] B Surface [id number] 17:09:39 Test Item Value Reference Range Interpretation Comments HBsAg. (test code = 5747) Non Reactive Non Reactive [facility] C Virus [id number] 16:29:30 Test Item Value Reference Range Interpretation Comments HCVAb. (test Non Reactive Non Reactive Antibody detect ion in the code = 5762) immunocompromis ed and immunosuppresse d population may be delayed or absent entirely. There fore serial testing, correl ation with other clinical findings, and supplementa l testing (if available) should be taken into cons ideration when interpreti ng the results. [facility] C Virus [id number] 16:29:30 Test Item Value Reference Range Interpretation Comments HCVAb. (test Non Reactive Non Reactive Antibody detect ion in the code = 5762) immunocompromis ed and immunosuppresse d population may be delayed or absent entirely. There fore serial testing, correl ation with other clinical findings, and supplementa l testing (if available) should be taken into cons ideration when interpreti ng the results. [facility] C Virus [id number] 16:29:30 Test Item Value Reference Range Interpretation Comments HCVAb. (test Non Reactive Non Reactive Antibody detect ion in the code = 5762) immunocompromis ed and immunosuppresse d population may be delayed or absent entirely. There fore serial testing, correl ation with other clinical findings, and supplementa l testing (if available) should be taken into cons ideration when interpreti ng the results. [facility] C Virus [id number] 16:29:30 Test Item Value Reference Range Interpretation Comments HCVAb. (test Non Reactive Non Reactive Antibody detect ion in the code = 5762) immunocompromis ed and immunosuppresse d population may be delayed or absent entirely. There fore serial testing, correl ation with other clinical findings, and supplementa l testing (if available) should be taken into cons ideration when interpreti ng the results. [facility] C Virus [id number] 16:29:30 Test Item Value Reference Range Interpretation Comments HCVAb. (test Non Reactive Non Reactive Antibody detect ion in the code = 5762) immunocompromis ed and immunosuppresse d population may be delayed or absent entirely. There fore serial testing, correl ation with other clinical findings, and supplementa l testing (if available) should be taken into cons ideration when interpreti ng the results. [facility] C Virus [id number] 16:29:30 Test Item Value Reference Range Interpretation Comments HCVAb. (test Non Reactive Non Reactive Antibody detect ion in the code = 5762) immunocompromis ed and immunosuppresse d population may be delayed or absent entirely. There fore serial testing, correl ation with other clinical findings, and supplementa l testing (if available) should be taken into cons ideration when interpreti ng the results. [facility] C Virus [id number] 16:29:30 Test Item Value Reference Range Interpretation Comments HCVAb. (test Non Reactive Non Reactive Antibody detect ion in the code = 5762) immunocompromis ed and immunosuppresse d population may be delayed or absent entirely. There fore serial testing, correl ation with other clinical findings, and supplementa l testing (if available) should be taken into cons ideration when interpreti ng the results. [facility] [id number] 16:29:30 Test Item Value Reference Range Interpretation Comments HCVAb. (test Non Reactive Non Reactive Antibody detect ion in the code = 5762) immunocompromis ed and immunosuppresse d population may be delayed or absent entirely. There fore serial testing, correl ation with other clinical findings, and supplementa l testing (if available) should be taken into cons ideration when interpreti ng the results. [facility] C Virus [id number] 16:29:30 Test Item Value Reference Range Interpretation Comments HCVAb. (test Non Reactive Non Reactive Antibody detect ion in the code = 5762) immunocompromis ed and immunosuppresse d population may be delayed or absent entirely. There fore serial testing, correl ation with other clinical findings, and supplementa l testing (if available) should be taken into cons ideration when interpreti ng the results. [facility] B Total Ig Core Ab (SCREENING) (anti-HBc total Ig; HBcAb total Ig)2023-02-07 16:29:12 Test Item Value Reference Range Interpretation Comments HBcAb. (test code = 5742) Non Reactive Non Reactive [facility] B Total Ig Core Ab (SCREENING) (anti-HBc total Ig; HBcAb total Ig)2023-02-07 16:29:12 Test Item Value Reference Range Interpretation Comments HBcAb. (test code = 5742) Non Reactive Non Reactive [facility] B Total Ig Core Ab (SCREENING) (anti-HBc total Ig; HBcAb total Ig)2023-02-07 16:29:12 Test Item Value Reference Range Interpretation Comments HBcAb. (test code = 5742) Non Reactive Non Reactive [facility] B Total Ig Core Ab (SCREENING) (anti-HBc total Ig; HBcAb total Ig)2023-02-07 16:29:12 Test Item Value Reference Range Interpretation Comments HBcAb. (test code = 5742) Non Reactive Non Reactive [facility] B Total Ig Core Ab (SCREENING) (anti-HBc total Ig; HBcAb total Ig)2023-02-07 16:29:12 Test Item Value Reference Range Interpretation Comments HBcAb. (test code = 5742) Non Reactive Non Reactive [facility] B Total Ig Core Ab (SCREENING) (anti-HBc total Ig; HBcAb total Ig)2023-02-07 16:29:12 Test Item Value Reference Range Interpretation Comments HBcAb. (test code = 5742) Non Reactive Non Reactive [facility] B Total Ig Core Ab (SCREENING) (anti-HBc total Ig; HBcAb total Ig)2023-02-07 16:29:12 Test Item Value Reference Range Interpretation Comments HBcAb. (test code = 5742) Non Reactive Non Reactive [facility] B Total Ig Core Ab (SCREENING) (anti-HBc total Ig; HBcAb total Ig)2023-02-07 16:29:12 Test Item Value Reference Range Interpretation Comments HBcAb. (test code = 5742) Non Reactive Non Reactive [facility] Ig Core Ab (SCREENING) (anti-HBc total Ig; HBcAb total Ig)2023-02-07 16:29:12 Test Item Value Reference Range Interpretation Comments HBcAb. (test code = 5742) Non Reactive Non Reactive [facility] 2023-02-07 14:32:28 Test Item Value Reference Range Interpretation Comments C difficile DNA (test Negative Negative code = 5134) C difficle Toxin EIA Test Not Performed Negative (test code = 8961) C difficile C. difficile DNA Interpretation (test code detection was = 2184185) negative making C. difficile infection highly unlikely in this patient. EIA not performed. [facility] 2023-02-07 14:32:28 Test Item Value Reference Range Interpretation Comments C difficile DNA (test Negative Negative code = 5134) C difficle Toxin EIA Test Not Performed Negative (test code = 8961) C difficile C. difficile DNA Interpretation (test code detection was = 3147585) negative making C. difficile infection highly unlikely in this patient. EIA not performed. [facility] 2023-02-07 14:32:28 Test Item Value Reference Range Interpretation Comments C difficile DNA (test Negative Negative code = 5134) C difficle Toxin EIA Test Not Performed Negative (test code = 8961) C difficile C. difficile DNA Interpretation (test code detection was = [id number]) negative making C. difficile infection highly unlikely in this patient. EIA not performed. [facility] 2023-02-07 14:32:28 Test Item Value Reference Range Interpretation Comments C difficile DNA (test Negative Negative code = 5134) C difficle Toxin EIA Test Not Performed Negative (test code = 8961) C difficile C. difficile DNA Interpretation (test code detection was = 5287257) negative making C. difficile infection highly unlikely in this patient. EIA not performed. [facility] 2023-02-07 14:32:28 Test Item Value Reference Range Interpretation Comments C difficile DNA (test Negative Negative code = 5134) C difficle Toxin EIA Test Not Performed Negative (test code = 8961) C difficile C. difficile DNA Interpretation (test code detection was = 1492844) negative making C. difficile infection highly unlikely in this patient. EIA not performed. [facility] 2023-02-07 14:32:28 Test Item Value Reference Range Interpretation Comments C difficile DNA (test Negative Negative code = 5134) C difficle Toxin EIA Test Not Performed Negative (test code = 8961) C difficile C. difficile DNA Interpretation (test code detection was = 1558354) negative making C. difficile infection highly unlikely in this patient. EIA not performed. [facility] 2023-02-07 14:32:28 Test Item Value Reference Range Interpretation Comments C difficile DNA (test Negative Negative code = 5134) C difficle Toxin EIA Test Not Performed Negative (test code = 8961) C difficile C. difficile DNA Interpretation (test code detection was = [id number]) negative making C. difficile infection highly unlikely in this patient. EIA not performed. [facility] 2023-02-07 14:32:28 Test Item Value Reference Range Interpretation Comments C difficile DNA (test Negative Negative code = 5134) C difficle Toxin EIA Test Not Performed Negative (test code = 8961) C difficile C. difficile DNA Interpretation (test code detection was = 2916395) negative making C. difficile infection highly unlikely in this patient. EIA not performed. [facility] 2023-02-07 14:32:28 Test Item Value Reference Range Interpretation Comments C difficile DNA (test Negative Negative code = 5134) C difficle Toxin EIA Test Not Performed Negative (test code = 8961) C difficile C. difficile DNA Interpretation (test code detection was = 2248194) negative making C. difficile infection highly unlikely in this patient. EIA not performed. [facility] 2023-[facility]-07 13:55:28 Test Item Value Reference Range Interpretation Comments Campylobacter (test code = Not Detected Not Detected 35292-4) C difficile DNA (GI Multi Refer to separate Panel) (test code = C. difficile DNA 88008-0) Assay for results Plesiomonas shigelloides Not Detected Not Detected (test code = 70858-5) Salmonella (test code = Not Detected Not Detected 86922-8) Vibrio (test code = Not Detected Not Detected 03477-6) Vibrio cholerae (test code Not Detected Not Detected = 18872-8) Yersinia enterocolitica Not Detected Not Detected (test code = 25203-3) Enteroaggregative E. coli Not Detected Not Detected (EAEC) (test code = 38813-8) Enteropathogenic E. coli Not Detected Not Detected (EPEC) (test code = 66909-8) Enterotoxigenic E. coli Not Detected Not Detected (ETEC) (test code = 27233-9) Shiga-like toxin-producing Not Detected Not Detected E. col (STEC) (test code = 57708-2) E. coli O157 (test code = Not Applicable Not Detected 63098-0) Shigella/Enteroinvasive E. Not Detected Not Detected coli (EIEC) (test code = 13989-9) Cryptosporidium (test code Not Detected Not Detected = 67533-6) Cyclospora cayetanensis Not Detected Not Detected (test code = 01344-7) Entamoeba histolytica Not Detected Not Detected (test code = 22320-0) Giardia lamblia (test code Not Detected Not Detected = 50430-1) Adenovirus F 40/41 (test Not Detected Not Detected code = 61034-7) Astrovirus (test code = Not Detected Not Detected 10773-3) Norovirus GI/GII (test Not Detected Not Detected code = 47640-7) Rotavirus A (test code = Not Detected Not Detected 36466-3) Sapovirus (I, II, IV and Not Detected Not Detected V) (test code = 92769-6) [facility] 2023-[facility]-07 13:55:28 Test Item Value Reference Range Interpretation Comments Campylobacter (test code = Not Detected Not Detected 58525-4) C difficile DNA (GI Multi Refer to separate Panel) (test code = C. difficile DNA 70120-8) Assay for results Plesiomonas shigelloides Not Detected Not Detected (test code = 71467-9) Salmonella (test code = Not Detected Not Detected 29277-0) Vibrio (test code = Not Detected Not Detected 04914-4) Vibrio cholerae (test code Not Detected Not Detected = 47471-9) Yersinia enterocolitica Not Detected Not Detected (test code = 20209-6) Enteroaggregative E. coli Not Detected Not Detected (EAEC) (test code = 66836-7) Enteropathogenic E. coli Not Detected Not Detected (EPEC) (test code = 55300-1) Enterotoxigenic E. coli Not Detected Not Detected (ETEC) (test code = 85815-7) Shiga-like toxin-producing Not Detected Not Detected E. col (STEC) (test code = 55172-2) E. coli O157 (test code = Not Applicable Not Detected 58294-1) Shigella/Enteroinvasive E. Not Detected Not Detected coli (EIEC) (test code = 67584-9) Cryptosporidium (test code Not Detected Not Detected = 70693-8) Cyclospora cayetanensis Not Detected Not Detected (test code = 69442-6) Entamoeba histolytica Not Detected Not Detected (test code = 97163-1) Giardia lamblia (test code Not Detected Not Detected = 61735-7) Adenovirus F 40/41 (test Not Detected Not Detected code = 21928-4) Astrovirus (test code = Not Detected Not Detected 94351-9) Norovirus GI/GII (test Not Detected Not Detected code = 50151-0) Rotavirus A (test code = Not Detected Not Detected 06544-8) Sapovirus (I, II, IV and Not Detected Not Detected V) (test code = 17454-4) [facility] 2023-02-07 13:55:28 Test Item Value Reference Range Interpretation Comments Campylobacter (test code = Not Detected Not Detected 64173-0) C difficile DNA (GI Multi Refer to separate Panel) (test code = C. difficile DNA 57946-2) Assay for results Plesiomonas shigelloides Not Detected Not Detected (test code = 13283-3) Salmonella (test code = Not Detected Not Detected 67757-2) Vibrio (test code = Not Detected Not Detected 31025-2) Vibrio cholerae (test code Not Detected Not Detected = 55337-8) Yersinia enterocolitica Not Detected Not Detected (test code = 93899-8) Enteroaggregative E. coli Not Detected Not Detected (EAEC) (test code = 72136-4) Enteropathogenic E. coli Not Detected Not Detected (EPEC) (test code = 26863-1) Enterotoxigenic E. coli Not Detected Not Detected (ETEC) (test code = 88197-0) Shiga-like toxin-producing Not Detected Not Detected E. col (STEC) (test code = 23043-9) E. coli O157 (test code = Not Applicable Not Detected 63123-4) Shigella/Enteroinvasive E. Not Detected Not Detected coli (EIEC) (test code = 17200-4) Cryptosporidium (test code Not Detected Not Detected = 22274-6) Cyclospora cayetanensis Not Detected Not Detected (test code = 82618-8) Entamoeba histolytica Not Detected Not Detected (test code = 77578-2) Giardia lamblia (test code Not Detected Not Detected = 05160-7) Adenovirus F 40/41 (test Not Detected Not Detected code = 53600-0) Astrovirus (test code = Not Detected Not Detected 90351-3) Norovirus GI/GII (test Not Detected Not Detected code = 60972-6) Rotavirus A (test code = Not Detected Not Detected 67327-0) Sapovirus (I, II, IV and Not Detected Not Detected V) (test code = 40804-4) [facility] 2023-[facility]-07 13:55:28 Test Item Value Reference Range Interpretation Comments Campylobacter (test code = Not Detected Not Detected 91854-7) C difficile DNA (GI Multi Refer to separate Panel) (test code = C. difficile DNA 01773-0) Assay for results Plesiomonas shigelloides Not Detected Not Detected (test code = 22818-2) Salmonella (test code = Not Detected Not Detected 70441-3) Vibrio (test code = Not Detected Not Detected 33042-2) Vibrio cholerae (test code Not Detected Not Detected = 15909-7) Yersinia enterocolitica Not Detected Not Detected (test code = 39177-2) Enteroaggregative E. coli Not Detected Not Detected (EAEC) (test code = 24634-6) Enteropathogenic E. coli Not Detected Not Detected (EPEC) (test code = 14727-8) Enterotoxigenic E. coli Not Detected Not Detected (ETEC) (test code = 29495-1) Shiga-like toxin-producing Not Detected Not Detected E. col (STEC) (test code = 40034-9) E. coli O157 (test code = Not Applicable Not Detected 13259-4) Shigella/Enteroinvasive E. Not Detected Not Detected coli (EIEC) (test code = 26596-1) Cryptosporidium (test code Not Detected Not Detected = 40015-4) Cyclospora cayetanensis Not Detected Not Detected (test code = 82473-0) Entamoeba histolytica Not Detected Not Detected (test code = 97498-9) Giardia lamblia (test code Not Detected Not Detected = 52734-4) Adenovirus F 40/41 (test Not Detected Not Detected code = 51343-5) Astrovirus (test code = Not Detected Not Detected 71085-2) Norovirus GI/GII (test Not Detected Not Detected code = 22790-8) Rotavirus A (test code = Not Detected Not Detected 63373-2) Sapovirus (I, II, IV and Not Detected Not Detected V) (test code = 24126-3) [facility] 2023-02-07 13:55:28 Test Item Value Reference Range Interpretation Comments Campylobacter (test code = Not Detected Not Detected 40233-6) C difficile DNA (GI Multi Refer to separate Panel) (test code = C. difficile DNA 43707-5) Assay for results Plesiomonas shigelloides Not Detected Not Detected (test code = 99829-7) Salmonella (test code = Not Detected Not Detected 18719-2) Vibrio (test code = Not Detected Not Detected 78649-7) Vibrio cholerae (test code Not Detected Not Detected = 88126-8) Yersinia enterocolitica Not Detected Not Detected (test code = 93940-4) Enteroaggregative E. coli Not Detected Not Detected (EAEC) (test code = 72985-2) Enteropathogenic E. coli Not Detected Not Detected (EPEC) (test code = 02495-6) Enterotoxigenic E. coli Not Detected Not Detected (ETEC) (test code = 32339-9) Shiga-like toxin-producing Not Detected Not Detected E. col (STEC) (test code = 88016-0) E. coli O157 (test code = Not Applicable Not Detected 67050-5) Shigella/Enteroinvasive E. Not Detected Not Detected coli (EIEC) (test code = 82211-4) Cryptosporidium (test code Not Detected Not Detected = 35915-8) Cyclospora cayetanensis Not Detected Not Detected (test code = 70010-7) Entamoeba histolytica Not Detected Not Detected (test code = 24066-4) Giardia lamblia (test code Not Detected Not Detected = 13549-0) Adenovirus F 40/41 (test Not Detected Not Detected code = 79534-0) Astrovirus (test code = Not Detected Not Detected 01212-0) Norovirus GI/GII (test Not Detected Not Detected code = 61601-0) Rotavirus A (test code = Not Detected Not Detected 04772-9) Sapovirus (I, II, IV and Not Detected Not Detected V) (test code = 51745-6) [facility] 2023-[facility]-07 13:55:28 Test Item Value Reference Range Interpretation Comments Campylobacter (test code = Not Detected Not Detected 02866-8) C difficile DNA (GI Multi Refer to separate Panel) (test code = C. difficile DNA 40407-8) Assay for results Plesiomonas shigelloides Not Detected Not Detected (test code = 70636-5) Salmonella (test code = Not Detected Not Detected 19480-6) Vibrio (test code = Not Detected Not Detected 10808-4) Vibrio cholerae (test code Not Detected Not Detected = 89360-8) Yersinia enterocolitica Not Detected Not Detected (test code = 25827-0) Enteroaggregative E. coli Not Detected Not Detected (EAEC) (test code = 70036-2) Enteropathogenic E. coli Not Detected Not Detected (EPEC) (test code = 99774-4) Enterotoxigenic E. coli Not Detected Not Detected (ETEC) (test code = 61055-5) Shiga-like toxin-producing Not Detected Not Detected E. col (STEC) (test code = 39990-2) E. coli O157 (test code = Not Applicable Not Detected 85933-0) Shigella/Enteroinvasive E. Not Detected Not Detected coli (EIEC) (test code = 12070-5) Cryptosporidium (test code Not Detected Not Detected = 60138-2) Cyclospora cayetanensis Not Detected Not Detected (test code = 93184-9) Entamoeba histolytica Not Detected Not Detected (test code = 33652-2) Giardia lamblia (test code Not Detected Not Detected = 16726-9) Adenovirus F 40/41 (test Not Detected Not Detected code = 33653-7) Astrovirus (test code = Not Detected Not Detected 15119-8) Norovirus GI/GII (test Not Detected Not Detected code = 22009-3) Rotavirus A (test code = Not Detected Not Detected 10828-1) Sapovirus (I, II, IV and Not Detected Not Detected V) (test code = 43388-6) [facility] Panel 2023-02-07 13:55:28 Test Item Value Reference Range Interpretation Comments Campylobacter (test code = Not Detected Not Detected 64677-5) C difficile DNA (GI Multi Refer to separate Panel) (test code = C. difficile DNA 39038-1) Assay for results Plesiomonas shigelloides Not Detected Not Detected (test code = 40051-9) Salmonella (test code = Not Detected Not Detected 14726-0) Vibrio (test code = Not Detected Not Detected 35839-6) Vibrio cholerae (test code Not Detected Not Detected = 91871-3) Yersinia enterocolitica Not Detected Not Detected (test code = 54564-4) Enteroaggregative E. coli Not Detected Not Detected (EAEC) (test code = 61068-3) Enteropathogenic E. coli Not Detected Not Detected (EPEC) (test code = 23569-9) Enterotoxigenic E. coli Not Detected Not Detected (ETEC) (test code = 99178-2) Shiga-like toxin-producing Not Detected Not Detected E. col (STEC) (test code = 34505-6) E. coli O157 (test code = Not Applicable Not Detected 36318-0) Shigella/Enteroinvasive E. Not Detected Not Detected coli (EIEC) (test code = 57800-7) Cryptosporidium (test code Not Detected Not Detected = 35990-4) Cyclospora cayetanensis Not Detected Not Detected (test code = 70487-5) Entamoeba histolytica Not Detected Not Detected (test code = 83297-7) Giardia lamblia (test code Not Detected Not Detected = 83197-3) Adenovirus F 40/41 (test Not Detected Not Detected code = 80692-4) Astrovirus (test code = Not Detected Not Detected 36594-3) Norovirus GI/GII (test Not Detected Not Detected code = 19360-9) Rotavirus A (test code = Not Detected Not Detected 50227-6) Sapovirus (I, II, IV and Not Detected Not Detected V) (test code = 57478-6) [facility] 2023-[facility]-07 13:55:28 Test Item Value Reference Range Interpretation Comments Campylobacter (test code = Not Detected Not Detected 53629-3) C difficile DNA (GI Multi Refer to separate Panel) (test code = C. difficile DNA 31829-2) Assay for results Plesiomonas shigelloides Not Detected Not Detected (test code = 74080-0) Salmonella (test code = Not Detected Not Detected 76479-6) Vibrio (test code = Not Detected Not Detected 70235-6) Vibrio cholerae (test code Not Detected Not Detected = 79012-8) Yersinia enterocolitica Not Detected Not Detected (test code = 06425-3) Enteroaggregative E. coli Not Detected Not Detected (EAEC) (test code = 40888-5) Enteropathogenic E. coli Not Detected Not Detected (EPEC) (test code = 74776-9) Enterotoxigenic E. coli Not Detected Not Detected (ETEC) (test code = 66177-7) Shiga-like toxin-producing Not Detected Not Detected E. col (STEC) (test code = 04463-7) E. coli O157 (test code = Not Applicable Not Detected 00243-8) Shigella/Enteroinvasive E. Not Detected Not Detected coli (EIEC) (test code = 62464-8) Cryptosporidium (test code Not Detected Not Detected = 50204-2) Cyclospora cayetanensis Not Detected Not Detected (test code = 64474-8) Entamoeba histolytica Not Detected Not Detected (test code = 78090-3) Giardia lamblia (test code Not Detected Not Detected = 66585-2) Adenovirus F 40/41 (test Not Detected Not Detected code = 63829-9) Astrovirus (test code = Not Detected Not Detected 99096-5) Norovirus GI/GII (test Not Detected Not Detected code = 41103-3) Rotavirus A (test code = Not Detected Not Detected 74433-8) Sapovirus (I, II, IV and Not Detected Not Detected V) (test code = 48243-1) [facility] 2023-02-07 13:55:28 Test Item Value Reference Range Interpretation Comments Campylobacter (test code = Not Detected Not Detected 93727-7) C difficile DNA (GI Multi Refer to separate Panel) (test code = C. difficile DNA 29540-3) Assay for results Plesiomonas shigelloides Not Detected Not Detected (test code = 83333-8) Salmonella (test code = Not Detected Not Detected 92951-1) Vibrio (test code = Not Detected Not Detected 14859-4) Vibrio cholerae (test code Not Detected Not Detected = 26156-7) Yersinia enterocolitica Not Detected Not Detected (test code = 72268-4) Enteroaggregative E. coli Not Detected Not Detected (EAEC) (test code = 77858-3) Enteropathogenic E. coli Not Detected Not Detected (EPEC) (test code = 03286-0) Enterotoxigenic E. coli Not Detected Not Detected (ETEC) (test code = 66510-9) Shiga-like toxin-producing Not Detected Not Detected E. col (STEC) (test code = 63707-3) E. coli O157 (test code = Not Applicable Not Detected 33491-9) Shigella/Enteroinvasive E. Not Detected Not Detected coli (EIEC) (test code = 90075-4) Cryptosporidium (test code Not Detected Not Detected = 60708-1) Cyclospora cayetanensis Not Detected Not Detected (test code = 20457-7) Entamoeba histolytica Not Detected Not Detected (test code = 02127-6) Giardia lamblia (test code Not Detected Not Detected = 02951-0) Adenovirus F 40/41 (test Not Detected Not Detected code = 82861-1) Astrovirus (test code = Not Detected Not Detected 05684-9) Norovirus GI/GII (test Not Detected Not Detected code = 51560-6) Rotavirus A (test code = Not Detected Not Detected 50409-8) Sapovirus (I, II, IV and Not Detected Not Detected V) (test code = 19059-1) [id number] 13:31:20 Test Item Value Reference Range Interpretation Comments Ferritin Lvl (test code = 2276-4) 320 ng/mL 13-150 H Lab Interpretation (test code = Abnormal 22305-5) [facility] [id number] 13:31:20 Test Item Value Reference Range Interpretation Comments Ferritin Lvl (test code = 2276-4) 320 ng/mL 13-150 H Lab Interpretation (test code = Abnormal 83588-3) [facility] [id number] 13:31:20 Test Item Value Reference Range Interpretation Comments Ferritin Lvl (test code = 2276-4) 320 ng/mL 13-150 H Lab Interpretation (test code = Abnormal 26766-5) [facility] [id number] 13:31:20 Test Item Value Reference Range Interpretation Comments Ferritin Lvl (test code = 2276-4) 320 ng/mL 13-150 H Lab Interpretation (test code = Abnormal 35895-4) [facility] [id number] 13:31:20 Test Item Value Reference Range Interpretation Comments Ferritin Lvl (test code = 2276-4) 320 ng/mL 13-150 H Lab Interpretation (test code = Abnormal 98794-8) [facility] [id number] 13:31:20 Test Item Value Reference Range Interpretation Comments Ferritin Lvl (test code = 2276-4) 320 ng/mL 13-150 H Lab Interpretation (test code = Abnormal 76754-3) [facility] [id number] 13:31:20 Test Item Value Reference Range Interpretation Comments Ferritin Lvl (test code = 2276-4) 320 ng/mL 13-150 H Lab Interpretation (test code = Abnormal 98237-6) [facility] [id number] 13:31:20 Test Item Value Reference Range Interpretation Comments Ferritin Lvl (test code = 2276-4) 320 ng/mL 13-150 H Lab Interpretation (test code = Abnormal 16134-4) [facility] [id number] 13:31:20 Test Item Value Reference Range Interpretation Comments Ferritin Lvl (test code = 2276-4) 320 ng/mL 13-150 H Lab Interpretation (test code = Abnormal 78767-3) [facility] [id number] 13:25:21 Test Item Value Reference Range Interpretation Comments Transferrin (test code 205 mg/dL 200-360 = 3034-6) TIBC (test code = 287 See_Comment [Automate d message] 2500-7) The system [employer] generated this result transmitted ref erence range: 250 - 45 0 mcg/dL. The ref erence range was not u sed to interpret this result as normal/abnor mal. [facility] [id number] 13:25:21 Test Item Value Reference Range Interpretation Comments Transferrin (test code 205 mg/dL 200-360 = 3034-6) TIBC (test code = 287 See_Comment [Automate d message] 2500-7) The system [employer] generated this result transmitted ref erence range: 250 - 45 0 mcg/dL. The ref erence range was not u sed to interpret this result as normal/abnor mal. [facility] [id number] 13:25:21 Test Item Value Reference Range Interpretation Comments Transferrin (test code 205 mg/dL 200-360 = 3034-6) TIBC (test code = 287 See_Comment [Automate d message] 2500-7) The system [employer] generated this result transmitted ref erence range: 250 - 45 0 mcg/dL. The ref erence range was not u sed to interpret this result as normal/abnor mal. [facility] [id number] 13:25:21 Test Item Value Reference Range Interpretation Comments Transferrin (test code 205 mg/dL 200-360 = 3034-6) TIBC (test code = 287 See_Comment [Automate d message] 2500-7) The system [employer] generated this result transmitted ref erence range: 250 - 45 0 mcg/dL. The ref erence range was not u sed to interpret this result as normal/abnor mal. [facility] [id number] 13:25:21 Test Item Value Reference Range Interpretation Comments Transferrin (test code 205 mg/dL 200-360 = 3034-6) TIBC (test code = 287 See_Comment [Automate d message] 2500-7) The system [employer] generated this result transmitted ref erence range: 250 - 45 0 mcg/dL. The ref erence range was not u sed to interpret this result as normal/abnor mal. [facility] [id number] 13:25:21 Test Item Value Reference Range Interpretation Comments Transferrin (test code 205 mg/dL 200-360 = 3034-6) TIBC (test code = 287 See_Comment [Automate d message] 2500-7) The system [employer] generated this result transmitted ref erence range: 250 - 45 0 mcg/dL. The ref erence range was not u sed to interpret this result as normal/abnor mal. [facility] [id number] 13:25:21 Test Item Value Reference Range Interpretation Comments Transferrin (test code 205 mg/dL 200-360 = 3034-6) TIBC (test code = 287 See_Comment [Automate d message] 2500-7) The system [employer] generated this result transmitted ref erence range: 250 - 45 0 mcg/dL. The ref erence range was not u sed to interpret this result as normal/abnor mal. [facility] [id number] 13:25:21 Test Item Value Reference Range Interpretation Comments Transferrin (test code 205 mg/dL 200-360 = 3034-6) TIBC (test code = 287 See_Comment [Automate d message] 2500-7) The system [employer] generated this result transmitted ref erence range: 250 - 45 0 mcg/dL. The ref erence range was not u sed to interpret this result as normal/abnor mal. [facility] [id number] 13:25:21 Test Item Value Reference Range Interpretation Comments Transferrin (test code 205 mg/dL 200-360 = 3034-6) TIBC (test code = 287 See_Comment [Automate d message] 2500-7) The system whic h generated this result transmitted ref erence range: 250 - 45 0 mcg/dL. The ref erence range was not u sed to interpret this result as normal/abnor mal. [address]04-09 13:25:20 Test Item Value Reference Range Interpretation Comments Iron (test code = 51 See_Comment [Automate d message] The [facility]8-) system which ge nerated this result transmit kaylie reference range : 37 - 145 mcg/dL. The ref erence range was not used to interpret this result as normal/abnormal . [place] [address]-04-09 13:25:20 Test Item Value Reference Range Interpretation Comments Iron (test code = 51 See_Comment [Automate d message] The [facility]-) system which ge nerated this result transmit kaylie reference range : 37 - 145 mcg/dL. The ref erence range was not used to interpret this result as normal/abnormal . [place] [address]-04-09 13:25:20 Test Item Value Reference Range Interpretation Comments Iron (test code = 51 See_Comment [Automate d message] The [facility]) system which ge nerated this result transmit kaylie reference range : 37 - 145 mcg/dL. The ref erence range was not used to interpret this result as normal/abnormal . [place] [address]-04-09 13:25:20 Test Item Value Reference Range Interpretation Comments Iron (test code = 51 See_Comment [Automate d message] The [facility]) system which ge nerated this result transmit kaylie reference range : 37 - 145 mcg/dL. The ref erence range was not used to interpret this result as normal/abnormal . [place] [address]-04-09 13:25:20 Test Item Value Reference Range Interpretation Comments Iron (test code = 51 See_Comment [Automate d message] The [facility]-) system which ge nerated this result transmit kaylie reference range : 37 - 145 mcg/dL. The ref erence range was not used to interpret this result as normal/abnormal . [facility]2023-04-09 13:25:20 Test Item Value Reference Range Interpretation Comments Iron (test code = 51 See_Comment [Automate d message] The 2498-4) system which ge nerated this result transmit kaylie reference range : 37 - 145 mcg/dL. The ref erence range was not used to interpret this result as normal/abnormal . [facility]2023-04-09 13:25:20 Test Item Value Reference Range Interpretation Comments Iron (test code = 51 See_Comment [Automate d message] The 2498-4) system which ge nerated this result transmit kaylie reference range : 37 - 145 mcg/dL. The ref erence range was not used to interpret this result as normal/abnormal . [facility]2023-04-09 13:25:20 Test Item Value Reference Range Interpretation Comments Iron (test code = 51 See_Comment [Automate d message] The 2498-4) system which ge nerated this result transmit kaylie reference range : 37 - 145 mcg/dL. The ref erence range was not used to interpret this result as normal/abnormal . [facility]2023-04-09 13:25:20 Test Item Value Reference Range Interpretation Comments Iron (test code = 51 See_Comment [Automate d message] The 2498-4) system which ge nerated this result transmit kaylie reference range : 37 - 145 mcg/dL. The ref erence range was not used to interpret this result as normal/abnormal . [facility] [id number] 13:23:33 Test Item Value Reference Range Interpretation Comments Chol (test code = 137 mg/dL <=199 ATP III Cl assification 2093-3) of Total Choles terol Primary Target of Therapy (in mg/dL):<200 Jzzogdlgl465-11 9 Borderline high >=240 High Trig (test code = 184 mg/dL <=149 H ATP III Cl assification 2571-8) of Serum Trigly cerides Primary Target of Therapy (in mg/dL):<150 Zojgqu056-906 Borderline high 200-499 High>=500 Very highNon-fasting triglycerides > 200 mg/dL may be fo llowed up with a fasti ng Lipid Panel. Calculated LDL- C may be falsely decr eased when non-fastin g triglycerides > 200 mg/dL. HDL (test code = 27 mg/dL >=40 L 2085-07) LDL (test code = 73 mg/dL <=100 ATP III Cla ssification 01592-3) of LDL Choleste rol Primary Target of Therapy (in mg/dL):<100 Btkrizj163-997 Near optimal/above -244 Borderline high 160-189 High>=190 Very high VLDL (test code = 37 mg/dL 07466-3) Lab Interpretation Abnormal (test code = 89983-5) [facility] [id number] 13:23:33 Test Item Value Reference Range Interpretation Comments Chol (test code = 137 mg/dL <=199 ATP III Cl assification 2092-3) of Total Choles terol Primary Target of Therapy (in mg/dL):<200 Bvdkzeson354-00 9 Borderline high >=240 High Trig (test code = 184 mg/dL <=149 H ATP III Cl assification 2571-8) of Serum Trigly cerides Primary Target of Therapy (in mg/dL):<150 Khanyb102-365 Borderline high 200-499 High>=500 Very highNon-fasting triglycerides > 200 mg/dL may be fo llowed up with a fasti ng Lipid Panel. Calculated LDL- C may be falsely decr eased when non-fastin g triglycerides > 200 mg/dL. HDL (test code = 27 mg/dL >=40 L 2085-07) LDL (test code = 73 mg/dL <=100 ATP III Cla ssification 49347-3) of LDL Choleste rol Primary Target of Therapy (in mg/dL):<100 Qduhubl303-438 Near optimal/above qewpwec727-829 Borderline high 160-189 High>=190 Very high VLDL (test code = 37 mg/dL 52017-4) Lab Interpretation Abnormal (test code = 47635-7) [facility] [id number] 13:23:33 Test Item Value Reference Range Interpretation Comments Chol (test code = 137 mg/dL <=199 ATP III Cl assification 3-3) of Total Choles terol Primary Target of Therapy (in mg/dL):<200 Hrajxelmd998-84 9 Borderline high >=240 High Trig (test code = 184 mg/dL <=149 H ATP III Cl assification 2571-8) of Serum Trigly cerides Primary Target of Therapy (in mg/dL):<150 Vumijp755-701 Borderline high 200-499 High>=500 Very highNon-fasting triglycerides > 200 mg/dL may be fo llowed up with a fasti ng Lipid Panel. Calculated LDL- C may be falsely decr eased when non-fastin g triglycerides > 200 mg/dL. HDL (test code = 27 mg/dL >=40 L 2085-07) LDL (test code = 73 mg/dL <=100 ATP III Cla ssification 68224-3) of LDL Choleste rol Primary Target of Therapy (in mg/dL):<100 Lveytem942-629 Near optimal/above vpyjvzi773-093 Borderline high 160-189 High>=190 Very high VLDL (test code = 37 mg/dL 74926-1) Lab Interpretation Abnormal (test code = 53801-3) [facility] [id number] 13:23:33 Test Item Value Reference Range Interpretation Comments Chol (test code = 137 mg/dL <=199 ATP III Cl assification 2093-3) of Total Choles terol Primary Target of Therapy (in mg/dL):<200 Xmgibftoc021-45 9 Borderline high >=240 High Trig (test code = 184 mg/dL <=149 H ATP III Cl assification 2571-8) of Serum Trigly cerides Primary Target of Therapy (in mg/dL):<150 Zncamk236-319 Borderline high 200-499 High>=500 Very highNon-fasting triglycerides > 200 mg/dL may be fo llowed up with a fasti ng Lipid Panel. Calculated LDL- C may be falsely decr eased when non-fastin g triglycerides > 200 mg/dL. HDL (test code = 27 mg/dL >=40 L 2085-07) LDL (test code = 73 mg/dL <=100 ATP III Cla ssification 47749-0) of LDL Choleste rol Primary Target of Therapy (in mg/dL):<100 Nfutcvc800-716 Near optimal/above evhctps405-151 Borderline high 160-189 High>=190 Very high VLDL (test code = 37 mg/dL 41674-3) Lab Interpretation Abnormal (test code = 49390-9) [facility] [id number] 13:23:33 Test Item Value Reference Range Interpretation Comments Chol (test code = 137 mg/dL <=199 ATP III Cl assification 2092-) of Total Choles terol Primary Target of Therapy (in mg/dL):<200 Gcvxzdvhn980-79 9 Borderline high >=240 High Trig (test code = 184 mg/dL <=149 H ATP III Cl assification 2571-8) of Serum Trigly cerides Primary Target of Therapy (in mg/dL):<150 Jnyrgn249-752 Borderline high 200-499 High>=500 Very highNon-fasting triglycerides > 200 mg/dL may be fo llowed up with a fasti ng Lipid Panel. Calculated LDL- C may be falsely decr eased when non-fastin g triglycerides > 200 mg/dL. HDL (test code = 27 mg/dL >=40 L 2085-07) LDL (test code = 73 mg/dL <=100 ATP III Cla ssification 99268-3) of LDL Choleste rol Primary Target of Therapy (in mg/dL):<100 Scjggun647-402 Near optimal/above pozddmy065-849 Borderline high 160-189 High>=190 Very high VLDL (test code = 37 mg/dL 27657-8) Lab Interpretation Abnormal (test code = 82129-6) [facility] [id number] 13:23:33 Test Item Value Reference Range Interpretation Comments Chol (test code = 137 mg/dL <=199 ATP III Cl assification 2092-12) of Total Choles terol Primary Target of Therapy (in mg/dL):<200 Srtsnrjjp429-88 9 Borderline high >=240 High Trig (test code = 184 mg/dL <=149 H ATP III Cl assification 2571-8) of Serum Trigly cerides Primary Target of Therapy (in mg/dL):<150 Wajorv277-402 Borderline high 200-499 High>=500 Very highNon-fasting triglycerides > 200 mg/dL may be fo llowed up with a fasti ng Lipid Panel. Calculated LDL- C may be falsely decr eased when non-fastin g triglycerides > 200 mg/dL. HDL (test code = 27 mg/dL >=40 L 2084-) LDL (test code = 73 mg/dL <=100 ATP III Cla ssification 48040-4) of LDL Choleste rol Primary Target of Therapy (in mg/dL):<100 Yxfucyb141-652 Near optimal/above afbkorx206-002 Borderline high 160-189 High>=190 Very high VLDL (test code = 37 mg/dL 02793-7) Lab Interpretation Abnormal (test code = 35759-0) [facility] [id number] 13:23:33 Test Item Value Reference Range Interpretation Comments Chol (test code = 137 mg/dL <=199 ATP III Cl assification 2092-3) of Total Choles terol Primary Target of Therapy (in mg/dL):<200 Xjnjrubkq322-29 9 Borderline high >=240 High Trig (test code = 184 mg/dL <=149 H ATP III Cl assification 2571-8) of Serum Trigly cerides Primary Target of Therapy (in mg/dL):<150 Zyroeu254-382 Borderline high 200-499 High>=500 Very highNon-fasting triglycerides > 200 mg/dL may be fo llowed up with a fasti ng Lipid Panel. Calculated LDL- C may be falsely decr eased when non-fastin g triglycerides > 200 mg/dL. HDL (test code = 27 mg/dL >=40 L 2085-07) LDL (test code = 73 mg/dL <=100 ATP III Cla ssification 37240-4) of LDL Choleste rol Primary Target of Therapy (in mg/dL):<100 Uipyqvg503-298 Near optimal/above wrirfnl873-198 Borderline high 160-189 High>=190 Very high VLDL (test code = 37 mg/dL 70796-9) Lab Interpretation Abnormal (test code = 67442-2) [facility] [id number] 13:23:33 Test Item Value Reference Range Interpretation Comments Chol (test code = 137 mg/dL <=199 ATP III Cl assification 2092-3) of Total Choles terol Primary Target of Therapy (in mg/dL):<200 Qemcixsxw220-25 9 Borderline high >=240 High Trig (test code = 184 mg/dL <=149 H ATP III Cl assification 2571-8) of Serum Trigly cerides Primary Target of Therapy (in mg/dL):<150 Lylgfb659-197 Borderline high 200-499 High>=500 Very highNon-fasting triglycerides > 200 mg/dL may be fo llowed up with a fasti ng Lipid Panel. Calculated LDL- C may be falsely decr eased when non-fastin g triglycerides > 200 mg/dL. HDL (test code = 27 mg/dL >=40 L 2085-07) LDL (test code = 73 mg/dL <=100 ATP III Cla ssification 29137-7) of LDL Choleste rol Primary Target of Therapy (in mg/dL):<100 Hqrjgat578-139 Near optimal/above -165 Borderline high 160-189 High>=190 Very high VLDL (test code = 37 mg/dL 16753-4) Lab Interpretation Abnormal (test code = 77680-6) [facility] [id number] 13:23:33 Test Item Value Reference Range Interpretation Comments Chol (test code = 137 mg/dL <=199 ATP III Cl assification 3-3) of Total Choles terol Primary Target of Therapy (in mg/dL):<200 Mpbfymodo813-30 9 Borderline high >=240 High Trig (test code = 184 mg/dL <=149 H ATP III Cl assification 2571-8) of Serum Trigly cerides Primary Target of Therapy (in mg/dL):<150 Awwgnn100-378 Borderline high 200-499 High>=500 Very highNon-fasting triglycerides > 200 mg/dL may be fo llowed up with a fasti ng Lipid Panel. Calculated LDL- C may be falsely decr eased when non-fastin g triglycerides > 200 mg/dL. HDL (test code = 27 mg/dL >=40 L 2085-07) LDL (test code = 73 mg/dL <=100 ATP III Cla ssification 49726-9) of LDL Choleste rol Primary Target of Therapy (in mg/dL):<100 Qrwuqab473-686 Near optimal/above -942 Borderline high 160-189 High>=190 Very high VLDL (test code = 37 mg/dL 67232-3) Lab Interpretation Abnormal (test code = 06437-1) [facility] [id number] 12:22:20 Test Item Value Reference Range Interpretation Comments A1C (test code = 4548-4) 10.2 % 4.3-5.6 H HbA 1c values >=6.5% are diagnostic of diabetes mellitus.Diagno sis should be confi rmed by repeat testing.Therape utic Action suggeste d: >8.0% HbA1c; Go al oftherapy: <7.0 % HbA1c Lab Interpretation (test Abnormal code = 05624-8) [facility] [id number] 12:22:20 Test Item Value Reference Range Interpretation Comments A1C (test code = 4548-4) 10.2 % 4.3-5.6 H HbA 1c values >=6.5% are diagnostic of diabetes mellitus.Diagno sis should be confi rmed by repeat testing.Therape utic Action suggeste d: >8.0% HbA1c; Go al oftherapy: <7.0 % HbA1c Lab Interpretation (test Abnormal code = 77040-6) [facility] [id number] 12:22:20 Test Item Value Reference Range Interpretation Comments A1C (test code = 4548-4) 10.2 % 4.3-5.6 H HbA 1c values >=6.5% are diagnostic of diabetes mellitus.Diagno sis should be confi rmed by repeat testing.Therape utic Action suggeste d: >8.0% HbA1c; Go al oftherapy: <7.0 % HbA1c Lab Interpretation (test Abnormal code = 54904-2) [facility] [id number] 12:22:20 Test Item Value Reference Range Interpretation Comments A1C (test code = 4548-4) 10.2 % 4.3-5.6 H HbA 1c values >=6.5% are diagnostic of diabetes mellitus.Diagno sis should be confi rmed by repeat testing.Therape utic Action suggeste d: >8.0% HbA1c; Go al oftherapy: <7.0 % HbA1c Lab Interpretation (test Abnormal code = 15081-5) [id number] 12:22:20 Test Item Value Reference Range Interpretation Comments A1C (test code = 4548-4) 10.2 % 4.3-5.6 H HbA 1c values >=6.5% are diagnostic of diabetes mellitus.Diagno sis should be confi rmed by repeat testing.Therape utic Action suggeste d: >8.0% HbA1c; Go al oftherapy: <7.0 % HbA1c Lab Interpretation (test Abnormal code = 79753-7) [facility] [id number] 12:22:20 Test Item Value Reference Range Interpretation Comments A1C (test code = 4548-4) 10.2 % 4.3-5.6 H HbA 1c values >=6.5% are diagnostic of diabetes mellitus.Diagno sis should be confi rmed by repeat testing.Therape utic Action suggeste d: >8.0% HbA1c; Go al oftherapy: <7.0 % HbA1c Lab Interpretation (test Abnormal code = 45742-1) [facility] [id number] 12:22:20 Test Item Value Reference Range Interpretation Comments A1C (test code = 4548-4) 10.2 % 4.3-5.6 H HbA 1c values >=6.5% are diagnostic of diabetes mellitus.Diagno sis should be confi rmed by repeat testing.Therape utic Action suggeste d: >8.0% HbA1c; Go al oftherapy: <7.0 % HbA1c Lab Interpretation (test Abnormal code = 01153-2) [facility] [id number] 12:22:20 Test Item Value Reference Range Interpretation Comments A1C (test code = 4548-4) 10.2 % 4.3-5.6 H HbA 1c values >=6.5% are diagnostic of diabetes mellitus.Diagno sis should be confi rmed by repeat testing.Therape utic Action suggeste d: >8.0% HbA1c; Go al oftherapy: <7.0 % HbA1c Lab Interpretation (test Abnormal code = 41590-6) [facility] [id number] 12:22:20 Test Item Value Reference Range Interpretation Comments A1C (test code = 4548-4) 10.2 % 4.3-5.6 H HbA 1c values >=6.5% are diagnostic of diabetes mellitus.Diagno sis should be confi rmed by repeat testing.Therape utic Action suggeste d: >8.0% HbA1c; Go al oftherapy: <7.0 % HbA1c Lab Interpretation (test Abnormal code = 74369-8) [place] [id number] 17:26:26 Test Item Value Reference Range Interpretation Comments CRP (test code = 65.62 mg/[place] [address]-1) CRP assay are a s follows: Reference range s when used to assess cardi ac risk: <1.00 mg/L Low cardiovascular risk 1.00-3.00 mg/L Average cardiovascular risk >3.00 mg/L High cardi ovascular risk.Reference ranges when used to assess inflammatory re sponses: Less than or eq ual to 10.00 mg/L. [place] [id number] 17:26:26 Test Item Value Reference Range Interpretation Comments CRP (test code = 65.62 mg/[place] [address]-2) CRP assay are a s follows: Reference range s when used to assess cardi ac risk: <1.00 mg/L Low cardiovascular risk 1.00-3.00 mg/L Average cardiovascular risk >3.00 mg/L High cardi ovascular risk.Reference ranges when used to assess inflammatory re sponses: Less than or eq ual to 10.00 mg/L. [place] [id number] 17:26:26 Test Item Value Reference Range Interpretation Comments CRP (test code = 65.62 mg/[place] [address]-4) CRP assay are a s follows: Reference range s when used to assess cardi ac risk: <1.00 mg/L Low cardiovascular risk 1.00-3.00 mg/L Average cardiovascular risk >3.00 mg/L High cardi ovascular risk.Reference ranges when used to assess inflammatory re sponses: Less than or eq ual to 10.00 mg/L. [place] [id number] 17:26:26 Test Item Value Reference Range Interpretation Comments CRP (test code = 65.62 mg/[place] [address]-2) CRP assay are a s follows: Reference range s when used to assess cardi ac risk: <1.00 mg/L Low cardiovascular risk 1.00-3.00 mg/L Average cardiovascular risk >3.00 mg/L High cardi ovascular risk.Reference ranges when used to assess inflammatory re sponses: Less than or eq ual to 10.00 mg/L. [facility] Test Item Value Reference Range Interpretation Comments CRP (test code = 65.62 mg/[place] [address]-7) CRP assay are a s follows: Reference range s when used to assess cardi ac risk: <1.00 mg/L Low cardiovascular risk 1.00-3.00 mg/L Average cardiovascular risk >3.00 mg/L High cardi ovascular risk.Reference ranges when used to assess inflammatory re sponses: Less than or eq ual to 10.00 mg/L. [facility] 17:26:26 Test Item Value Reference Range Interpretation Comments CRP (test code = 65.62 mg/[place] [address]-9) CRP assay are a s follows: Reference range s when used to assess cardi ac risk: <1.00 mg/L Low cardiovascular risk 1.00-3.00 mg/L Average cardiovascular risk >3.00 mg/L High cardi ovascular risk.Reference ranges when used to assess inflammatory re sponses: Less than or eq ual to 10.00 mg/L. [facility] 17:26:26 Test Item Value Reference Range Interpretation Comments CRP (test code = 65.62 mg/[place] [address]-4) CRP assay are a s follows: Reference range s when used to assess cardi ac risk: <1.00 mg/L Low cardiovascular risk 1.00-3.00 mg/L Average cardiovascular risk >3.00 mg/L High cardi ovascular risk.Reference ranges when used to assess inflammatory re sponses: Less than or eq ual to 10.00 mg/L. [facility] 17:26:26 Test Item Value Reference Range Interpretation Comments CRP (test code = 65.62 mg/[place] [address]-8) CRP assay are a s follows: Reference range s when used to assess cardi ac risk: <1.00 mg/L Low cardiovascular risk 1.00-3.00 mg/L Average cardiovascular risk >3.00 mg/L High cardi ovascular risk.Reference ranges when used to assess inflammatory re sponses: Less than or eq ual to 10.00 mg/L. [facility] 17:26:26 Test Item Value Reference Range Interpretation Comments CRP (test code = 65.62 mg/[place] [address]-4) CRP assay are a s follows: Reference range s when used to assess cardi ac risk: <1.00 mg/L Low cardiovascular risk 1.00-3.00 mg/L Average cardiovascular risk >3.00 mg/L High cardi ovascular risk.Reference ranges when used to assess inflammatory re sponses: Less than or eq ual to 10.00 mg/L. [facility] 17:14:43 Test Item Value Reference Range Interpretation Comments NT ProBNP (test code = 77328-3) 83 pg/mL <=125 [facility] 17:14:43 Test Item Value Reference Range Interpretation Comments NT ProBNP (test code = 79985-1) 83 pg/mL <=125 [facility]-06 17:14:43 Test Item Value Reference Range Interpretation Comments NT ProBNP (test code = 29996-0) 83 pg/mL <=125 [facility]-06 17:14:43 Test Item Value Reference Range Interpretation Comments NT ProBNP (test code = 98404-3) 83 pg/mL <=125 [facility]-06 17:14:43 Test Item Value Reference Range Interpretation Comments NT ProBNP (test code = 15249-6) 83 pg/mL <=125 [facility]-06 17:14:43 Test Item Value Reference Range Interpretation Comments NT ProBNP (test code = 34000-3) 83 pg/mL <=125 [facility]-06 17:14:43 Test Item Value Reference Range Interpretation Comments NT ProBNP (test code = 63554-0) 83 pg/mL <=125 [facility]-06 17:14:43 Test Item Value Reference Range Interpretation Comments NT ProBNP (test code = 34642-8) 83 pg/mL <=125 [facility]-06 17:14:43 Test Item Value Reference Range Interpretation Comments NT ProBNP (test code = 44345-7) 83 pg/mL <=125 [facility]-06 06:39:52 Test Item Value Reference Range Interpretation Comments Troponin T (test code 10 ng/L <=19 < 19 n g/L Suggest retest = 63515-4) at 3 to 6 hours later to [...] interfere nces and falsely low res ults. [facility] 06:39:52 Test Item Value Reference Range Interpretation Comments Troponin T (test code 10 ng/L <=19 < 19 n g/L Suggest retest = 19863-9) at 3 to 6 hours later to [...] interfere nces and falsely low res ults. [facility] 06:39:52 Test Item Value Reference Range Interpretation Comments Troponin T (test code 10 ng/L <=19 < 19 n g/L Suggest retest = 10087-7) at 3 to 6 hours later to [...] interfere nces and falsely low res ults. [facility] 06:39:52 Test Item Value Reference Range Interpretation Comments Troponin T (test code 10 ng/L <=19 < 19 n g/L Suggest retest = 81116-1) at 3 to 6 hours later to [...] interfere nces and falsely low res ults. [facility] 06:39:52 Test Item Value Reference Range Interpretation Comments Troponin T (test code 10 ng/L <=19 < 19 n g/L Suggest retest = 11184-4) at 3 to 6 hours later to [...] interfere nces and falsely low res ults. [facility] 06:39:52 Test Item Value Reference Range Interpretation Comments Troponin T (test code 10 ng/L <=19 < 19 n g/L Suggest retest = 46968-3) at 3 to 6 hours later to [...] interfere nces and falsely low res ults. [facility] 06:39:52 Test Item Value Reference Range Interpretation Comments Troponin T (test code 10 ng/L <=19 < 19 n g/L Suggest retest = 36926-5) at 3 to 6 hours later to [...] interfere nces and falsely low res ults. [facility] 06:39:52 Test Item Value Reference Range Interpretation Comments Troponin T (test code 10 ng/L <=19 < 19 n g/L Suggest retest = 47209-1) at 3 to 6 hours later to [...] interfere nces and falsely low res ults. [facility]06 06:39:52 Test Item Value Reference Range Interpretation Comments Troponin T (test code 10 ng/L <=19 < 19 n g/L Suggest retest = 65676-7) at 3 to 6 hours later to [...] interfere nces and falsely low res ults. [facility] 2023-02-06 05:50:41 Test Item Value Reference Range Interpretation Comments UA Color (test code = [place] Straw-Yellow A 97316-3) UA Appear (test code = Cloudy Clear A 78458-1) UA Glucose (test code 500 mg/dL NEG [...] = NOT SEEN See_Comment Some rep orting 59309-0) parameters with in the Urinalysis test have changed due to the implementation of new instrumentation in the [facility], [facility] greater sensiti vity of measurement. Urinalysis resu lts reported by the [facility] using existing instrumentation , as well as Urinaly sis testing perform ed manually or by backup methodology at the [facility] [place] remain relative ly unchanged. New [...] = 13 See_Comment H [Automa kaylie message] 04231-2) The system [employer] generated this result transmitted ref erence range: 0 - 2 /H PF. The reference range was not used to int erpret this result as normal/abnormal . UA Mucous (test code = NOT SEEN Not Seen-Trace 78766-2) /HPF UA Bacteria (test code NOT SEEN NOT SEEN /HPF = 60261-7) UA Squam Epi (test OCC None-Occasional code = 91606-8) /HPF Lab Interpretation Abnormal (test code = 74290-2) [facility] 2023-02-[facility] 05:50:41 Test Item Value Reference Range Interpretation Comments UA Color (test code = [place] Straw-Yellow A 19402-2) UA Appear (test code = Cloudy Clear A 46637-2) UA Glucose (test code 500 mg/dL NEG [...] = NOT SEEN See_Comment Some rep orting 92970-4) parameters with in the Urinalysis test have changed due to the implementation of new instrumentation in the [facility] [place]. Urinalysis resu lts reported by the [facility] using existing instrumentation , as well as Urinaly sis testing perform ed manually or by backup methodology at the [facility] [place] remain relative ly unchanged. New [...] = 13 See_Comment H [Automa kaylie message] 60484-8) The system [employer] generated this result transmitted ref erence range: 0 - 2 /H PF. The reference range was not used to int erpret this result as normal/abnormal . UA Mucous (test code = NOT SEEN Not Seen-Trace 49877-4) /HPF UA Bacteria (test code NOT SEEN NOT SEEN /HPF = 08821-8) UA Squam Epi (test OCC None-Occasional code = 80491-7) /HPF Lab Interpretation Abnormal (test code = 48128-1) [facility]23-[facility] 05:50:41 Test Item Value Reference Range Interpretation Comments UA Color (test code = [place] Straw-Yellow A 42582-7) UA Appear (test code = Cloudy Clear A 46011-1) UA Glucose (test code 500 mg/dL NEG [...] = NOT SEEN See_Comment Some rep orting 47686-1) parameters with in the Urinalysis test have changed due to the implementation of new instrumentation in the [facility] [place], [place] lowing greater sensiti vity of measurement. Urinalysis resu lts reported by the [facility] using existing instrumentation , as well as Urinaly sis testing perform ed manually or by backup methodology at the [facility] [place] remain relative ly unchanged. New [...] = 13 See_Comment H [Automa kaylie message] 85831-8) The system [employer] generated this result transmitted ref erence range: 0 - 2 /H PF. The reference range was not used to int erpret this result as normal/abnormal . UA Mucous (test code = NOT SEEN Not Seen-Trace 23291-0) /HPF UA Bacteria (test code NOT SEEN NOT SEEN /HPF = 83647-7) UA Squam Epi (test OCC None-Occasional code = 40833-8) /HPF Lab Interpretation Abnormal (test code = 43412-6) [facility]-06 05:50:41 Test Item Value Reference Range Interpretation Comments UA Color (test code = [place] Straw-Yellow A 18397-5) UA Appear (test code = Cloudy Clear A 91555-2) UA Glucose (test code 500 mg/dL NEG [...] = NOT SEEN See_Comment Some rep orting 64843-1) parameters with in the Urinalysis test have changed due to the implementation of new instrumentation in the [facility] [place], [place] low[place] greater sensiti vity of measurement. Urinalysis resu lts reported by the [facility] using existing instrumentation , as well as Urinaly sis testing perform ed manually or by backup methodology at the [facility] [place] remain relative ly unchanged. New [...] = 13 See_Comment H [Automa kaylie message] 28664-1) The system [employer] generated this result transmitted ref erence range: 0 - 2 /H PF. The reference range was not used to int erpret this result as normal/abnormal . UA Mucous (test code = NOT SEEN Not Seen-Trace 07823-4) /HPF UA Bacteria (test code NOT SEEN NOT SEEN /HPF = 13717-6) UA Squam Epi (test OCC None-Occasional code = 97619-9) /HPF Lab Interpretation Abnormal (test code = 86894-4) [facility] 2023-02-06 05:50:41 Test Item Value Reference Range Interpretation Comments UA Color (test code = [place] Straw-Yellow A 54103-9) UA Appear (test code = Cloudy Clear A 29776-5) UA Glucose (test code 500 mg/dL NEG [...] = NOT SEEN See_Comment Some rep orting 45916-3) parameters with in the Urinalysis test have changed due to the implementation of new instrumentation in the [facility] [place], [place] low[place] greater sensiti vity of measurement. Urinalysis resu lts reported by the [facility] using existing instrumentation , as well as Urinaly sis testing perform ed manually or by backup methodology at the [facility] [place] remain relative ly unchanged. New reporting asha eters and units will not be reported for al l campuses. [Auto mated message] The sy stem which generated this result transmit kayile reference range : 0 - 2 /HPF. The refer ence range was not u sed to interpret this result as normal/abnor mal. UA RBC (test code = 13 See_Comment H [Automa kaylie message] 37593-6) The system [employer] generated this result transmitted ref erence range: 0 - 2 /H PF. The reference range was not used to int erpret this result as normal/abnormal . UA Mucous (test code = NOT SEEN Not Seen-Trace 96669-9) /HPF UA Bacteria (test code NOT SEEN NOT SEEN /HPF = 99624-9) UA Squam Epi (test OCC None-Occasional code = 77282-5) /HPF Lab Interpretation Abnormal (test code = 97985-0) [facility] 2023-02-06 05:50:41 Test Item Value Reference Range Interpretation Comments UA Color (test code = [place] Straw-Yellow A 25610-3) UA Appear (test code = Cloudy Clear A 85046-1) UA Glucose (test code 500 mg/dL NEG [...] = NOT SEEN See_Comment Some rep orting 19764-6) parameters with in the Urinalysis test have changed due to the implementation of new instrumentation in the [facility] [place] low[place] greater sensiti vity of measurement. Urinalysis resu lts reported by the [facility] enters using existing instrumentation , as well as Urinaly sis testing perform ed manually or by backup methodology at the [facility] [place] remain relative ly unchanged. New [...] = 13 See_Comment H [Automa kaylie message] 59935-8) The system [employer] generated this result transmitted ref erence range: 0 - 2 /H PF. The reference range was not used to int erpret this result as normal/abnormal . UA Mucous (test code = NOT SEEN Not Seen-Trace 41200-8) /HPF UA Bacteria (test code NOT SEEN NOT SEEN /HPF = 65241-3) UA Squam Epi (test OCC None-Occasional code = 93696-3) /HPF Lab Interpretation Abnormal (test code = 42008-6) [facility] 2023-02-06 05:50:41 Test Item Value Reference Range Interpretation Comments UA Color (test code = [place] Straw-Yellow A 14799-1) UA Appear (test code = Cloudy Clear A 71688-4) UA Glucose (test code 500 mg/dL NEG [...] = NOT SEEN See_Comment Some rep orting 78084-5) parameters with in the Urinalysis test have changed due to the implementation of new instrumentation in the [facility], al lowing greater sensiti vity of measurement. Urinalysis resu lts reported by the [facility] C enters using existing instrumentation , as well as Urinaly sis testing perform ed manually or by backup methodology at the [facility] remain relative ly unchanged. New reporting asha eters and units will not be reported for [facility] campuses. [Auto mated message] The sy stem which generated this result transmit kaylie reference range : 0 - 2 /HPF. The refer ence range was not u sed to interpret this result as normal/abnor mal. UA RBC (test code = 13 See_Comment H [Automa kaylie message] 25140-2) The system [employer] generated this result transmitted ref erence range: 0 - 2 /H PF. The reference range was not used to int erpret this result as normal/abnormal . UA Mucous (test code = NOT SEEN Not Seen-Trace 65342-0) /HPF UA Bacteria (test code NOT SEEN NOT SEEN /HPF = 15682-8) UA Squam Epi (test OCC None-Occasional code = 29804-9) /HPF Lab Interpretation Abnormal (test code = 01867-8) [facility] 2023-[facility]-06 05:50:41 Test Item Value Reference Range Interpretation Comments UA Color (test code = [place] Straw-Yellow A 62834-1) UA Appear (test code = Cloud[place] Clear A 04418-8) UA Glucose (test code 500 mg/dL NEG [...] = NOT SEEN See_Comment Some rep orting 43092-0) parameters with in the Urinalysis test have changed due to the implementation of new instrumentation in the [facility], [facility] greater sensiti vity of measurement. Urinalysis resu lts reported by the [facility] C enters using existing instrumentation , as well as Urinaly sis testing perform ed manually or by backup methodology at the [facility] l remain relative ly unchanged. New reporting asha eters and units will not be reported for [facility] campuses. [Auto mated message] The sy stem which generated this result transmit kaylie reference range : 0 - 2 /HPF. The refer ence range was not u sed to interpret this result as normal/abnor mal. UA RBC (test code = 13 See_Comment H [Automa kaylie message] 82828-8) The system [employer] generated this result transmitted ref erence range: 0 - 2 /H PF. The reference range was not used to int erpret this result as normal/abnormal . UA Mucous (test code = NOT SEEN Not Seen-Trace 74238-0) /HPF UA Bacteria (test code NOT SEEN NOT SEEN /HPF = 86224-9) UA Squam Epi (test OCC None-Occasional code = 45337-3) /HPF Lab Interpretation Abnormal (test code = 05864-5) [facility] 2023-[facility]-06 05:50:41 Test Item Value Reference Range Interpretation Comments UA Color (test code = [place] Straw-Yellow A 15909-8) UA Appear (test code = Cloud[place] A 69398-4) UA Glucose (test code 500 mg/dL NEG [...] = NOT SEEN See_Comment Some rep orting 41195-4) parameters with in the Urinalysis test have changed due to the implementation of new instrumentation in the [facility], [facility] greater sensiti vity of measurement. Urinalysis resu lts reported by the [facility] using existing instrumentation , as well as Urinaly sis testing perform ed manually or by backup methodology at the [facility] [place] remain relative ly unchanged. New [...] = 13 See_Comment H [Automa kaylie message] 64004-7) The system [employer] h generated this result transmitted ref erence range: 0 - 2 /H PF. The reference range was not used to int erpret this result as normal/abnormal . UA Mucous (test code = NOT SEEN Not Seen-Trace 91284-3) /HPF UA Bacteria (test code NOT SEEN NOT SEEN /HPF = 82522-7) UA Squam Epi (test OCC None-Occasional code = 28951-1) /HPF Lab Interpretation Abnormal (test code = 25464-4) [facility]:32:47 Test Item Value Reference Range Interpretation Comments aPTT (test code = 28.5 See_Comment [Automate d message] The 13077-1) system which ge nerated this result transmit kaylie reference range : 22.8 - 34.2 second(s). The reference range was not used to interpr et this result as diane l/abnormal. [facility] 02:32:47 Test Item Value Reference Range Interpretation Comments aPTT (test code = 28.5 See_Comment [Automate d message] The 25148-6) system which ge nerated this result transmit kaylie reference range : 22.8 - 34.2 second(s). The reference range was not used to interpr et this result as diane l/abnormal. [facility] 02:32:47 Test Item Value Reference Range Interpretation Comments aPTT (test code = 28.5 See_Comment [Automate d message] The 26815-2) system which ge nerated this result transmit kaylie reference range : 22.8 - 34.2 second(s). The reference range was not used to interpr et this result as diane l/abnormal. [facility] 02:32:47 Test Item Value Reference Range Interpretation Comments aPTT (test code = 28.5 See_Comment [Automate d message] The 17666-2) system which ge nerated this result transmit kaylie reference range : 22.8 - 34.2 second(s). The reference range was not used to interpr et this result as diane l/abnormal. [facility] 02:32:47 Test Item Value Reference Range Interpretation Comments aPTT (test code = 28.5 See_Comment [Automate d message] The 60960-3) system which ge nerated this result transmit kaylie reference range : 22.8 - 34.2 second(s). The reference range was not used to interpr et this result as diane l/abnormal. [facility] 02:32:47 Test Item Value Reference Range Interpretation Comments aPTT (test code = 28.5 See_Comment [Automate d message] The 98742-0) system which ge nerated this result transmit kaylie reference range : 22.8 - 34.2 second(s). The reference range was not used to interpr et this result as diane l/abnormal. [facility] 02:32:47 Test Item Value Reference Range Interpretation Comments aPTT (test code = 28.5 See_Comment [Automate d message] The 10399-1) system which ge nerated this result transmit kaylie reference range : 22.8 - 34.2 second(s). The reference range was not used to interpr et this result as diane l/abnormal. [facility] Test Item Value Reference Range Interpretation Comments aPTT (test code = 28.5 See_Comment [Automate d message] The 61492-9) system which ge nerated this result transmit kaylie reference range : 22.8 - 34.2 second(s). The reference range was not used to interpr et this result as diane l/abnormal. [facility]47 Test Item Value Reference Range Interpretation Comments aPTT (test code = 28.5 See_Comment [Automate d message] The 63979-1) system which ge nerated this result transmit kaylie reference range : 22.8 - 34.2 second(s). The reference range was not used to interpr et this result as diane l/abnormal. [facility] with [id number] 02:32:46 Test Item Value Reference Range Interpretation Comments PT (test code = 5902-2) 14.7 See_Comment H [Au tomated message] The system [employer] generated this result transmitted ref erence range: 11.9 - 1 4.1 second(s). The reference range was not used to int erpret this result as normal/abnormal . INR (test code = 6301-6) 1.16 0.89-1.10 H Lab Interpretation (test Abnormal code = 01187-0) [facility] with [id number] 02:32:46 Test Item Value Reference Range Interpretation Comments PT (test code = 5902-2) 14.7 See_Comment H [Au tomated message] The system [employer] generated this result transmitted ref erence range: 11.9 - 1 4.1 second(s). The reference range was not used to int erpret this result as normal/abnormal . INR (test code = 6301-6) 1.16 0.89-1.10 H Lab Interpretation (test Abnormal code = 25159-6) [facility] with [id number] 02:32:46 Test Item Value Reference Range Interpretation Comments PT (test code = 5902-2) 14.7 See_Comment H [Au tomated message] The system [employer] generated this result transmitted ref erence range: 11.9 - 1 4.1 second(s). The reference range was not used to int erpret this result as normal/abnormal . INR (test code = 6301-6) 1.16 0.89-1.10 H Lab Interpretation (test Abnormal code = 71128-1) [facility] with [id number] 02:32:46 Test Item Value Reference Range Interpretation Comments PT (test code = 5902-2) 14.7 See_Comment H [Au tomated message] The system [employer] generated this result transmitted ref erence range: 11.9 - 1 4.1 second(s). The reference range was not used to int erpret this result as normal/abnormal . INR (test code = 6301-6) 1.16 0.89-1.10 H Lab Interpretation (test Abnormal code = 74145-6) [facility] with [id number] 02:32:46 Test Item Value Reference Range Interpretation Comments PT (test code = 5902-2) 14.7 See_Comment H [Au tomated message] The system [employer] generated this result transmitted ref erence range: 11.9 - 1 4.1 second(s). The reference range was not used to int erpret this result as normal/abnormal . INR (test code = 6301-6) 1.16 0.89-1.10 H Lab Interpretation (test Abnormal code = 60017-3) [facility] with [id number] 02:32:46 Test Item Value Reference Range Interpretation Comments PT (test code = 5902-2) 14.7 See_Comment H [Au tomated message] The system [employer] generated this result transmitted ref erence range: 11.9 - 1 4.1 second(s). The reference range was not used to int erpret this result as normal/abnormal . INR (test code = 6301-6) 1.16 0.89-1.10 H Lab Interpretation (test Abnormal code = 61299-4) [facility] with [id number] 02:32:46 Test Item Value Reference Range Interpretation Comments PT (test code = 5902-2) 14.7 See_Comment H [Au tomated message] The system [employer] generated this result transmitted ref erence range: 11.9 - 1 4.1 second(s). The reference range was not used to int erpret this result as normal/abnormal . INR (test code = 6301-6) 1.16 0.89-1.10 H Lab Interpretation (test Abnormal code = 52106-8) [facility] with [id number] 02:32:46 Test Item Value Reference Range Interpretation Comments PT (test code = 5902-2) 14.7 See_Comment H [Au tomated message] The system [employer] generated this result transmitted ref erence range: 11.9 - 1 4.1 second(s). The reference range was not used to int erpret this result as normal/abnormal . INR (test code = 6301-6) 1.16 0.89-1.10 H Lab Interpretation (test Abnormal code = 23634-9) [facility] with [id number] 02:32:46 Test Item Value Reference Range Interpretation Comments PT (test code = 5902-2) 14.7 See_Comment H [Au tomated message] The system [employer] generated this result transmitted ref erence range: 11.9 - 1 4.1 second(s). The reference range was not used to int erpret this result as normal/abnormal . INR (test code = 6301-6) 1.16 0.89-1.10 H Lab Interpretation (test Abnormal code = 70497-7) [facility] [id number] 02:32:45 Test Item Value Reference Range Interpretation Comments D-Dimer (test code = 3.04 See_Comment H [place] [address]-9) exclusion of ve nous thromboembolism is <0.51 mcg/mL FEUs (fi brinogen equivalent unit s). [Automated mess age] The system which ge nerated this result tra nsmitted reference range : 0.10 - 0.50 mcg/ml FEU . The reference range was not used to interpr et this result as normal/abnormal . Lab Interpretation Abnormal (test code = 76035-3) [facility] [id number] 02:32:45 Test Item Value Reference Range Interpretation Comments D-Dimer (test code = 3.04 See_Comment H [place] [address]-5) exclusion of ve nous thromboembolism is <0.51 mcg/mL FEUs (fi brinogen equivalent unit s). [Automated mess age] The system which ge nerated this result tra nsmitted reference range : 0.10 - 0.50 mcg/ml FEU . The reference range was not used to interpr et this result as normal/abnormal . Lab Interpretation Abnormal (test code = 88215-8) [facility] [id number] 02:32:45 Test Item Value Reference Range Interpretation Comments D-Dimer (test code = 3.04 See_Comment H [place] 58[address]-5) exclusion of ve nous thromboembolism is <0.51 mcg/mL FEUs (fi brinogen equivalent unit s). [Automated mess age] The system which ge nerated this result tra nsmitted reference range : 0.10 - 0.50 mcg/ml FEU . The reference range was not used to interpr et this result as normal/abnormal . Lab Interpretation Abnormal (test code = 33164-8) [facility] [id number] 02:32:45 Test Item Value Reference Range Interpretation Comments D-Dimer (test code = 3.04 See_Comment H [place] [address]-3) exclusion of ve nous thromboembolism is <0.51 mcg/mL FEUs (fi brinogen equivalent unit s). [Automated mess age] The system which ge nerated this result tra nsmitted reference range : 0.10 - 0.50 mcg/ml FEU . The reference range was not used to interpr et this result as normal/abnormal . Lab Interpretation Abnormal (test code = 24340-2) [facility] [id number] 02:32:45 Test Item Value Reference Range Interpretation Comments D-Dimer (test code = 3.04 See_Comment H [place] [address]-3) exclusion of ve nous thromboembolism is <0.51 mcg/mL FEUs (fi brinogen equivalent unit s). [Automated mess age] The system which ge nerated this result tra nsmitted reference range : 0.10 - 0.50 mcg/ml FEU . The reference range was not used to interpr et this result as normal/abnormal . Lab Interpretation Abnormal (test code = 73333-9) [facility] [id number] 02:32:45 Test Item Value Reference Range Interpretation Comments D-Dimer (test code = 3.04 See_Comment H [place] [address]47-8) exclusion of ve nous thromboembolism is <0.51 mcg/mL FEUs (fi brinogen equivalent unit s). [Automated [employer] age] The system which ge nerated this result tra nsmitted reference range : 0.10 - 0.50 mcg/ml FEU . The reference range was not used to interpr et this result as normal/abnormal . Lab Interpretation Abnormal (test code = 45019-5) [facility] [id number] 02:32:45 Test Item Value Reference Range Interpretation Comments D-Dimer (test code = 3.04 See_Comment H [place] [address]-0) exclusion of ve nous thromboembolism is <0.51 mcg/mL FEUs (fi brinogen equivalent unit s). [Automated [employer] age] The system which ge nerated this result tra nsmitted reference range : 0.10 - 0.50 mcg/ml FEU . The reference range was not used to interpr et this result as normal/abnormal . Lab Interpretation Abnormal (test code = 08080-0) [facility] [id number] 02:32:45 Test Item Value Reference Range Interpretation Comments D-Dimer (test code = 3.04 See_Comment H [place] 76[address]-4) exclusion of ve nous thromboembolism is <0.51 mcg/mL FEUs (fi brinogen equivalent unit s). [Automated [employer] age] The system which ge nerated this result tra nsmitted reference range : 0.10 - 0.50 mcg/ml FEU . The reference range was not used to interpr et this result as normal/abnormal . Lab Interpretation Abnormal (test code = 14934-2) [facility] [id number] 02:32:45 Test Item Value Reference Range Interpretation Comments D-Dimer (test code = 3.04 See_Comment H [place] 26874-4) exclusion of ve nous thromboembolism is <0.51 mcg/mL FEUs (fi brinogen equivalent unit s). [Automated [employer] age] The system which ge nerated this result tra nsmitted reference range : 0.10 - 0.50 mcg/ml FEU . The reference range was not used to interpr et this result as normal/abnormal . Lab Interpretation Abnormal (test code = 22628-7) [facility] [id number] 01:31:58 Test Item Value Reference Range Interpretation Comments V Lactate (test code = 2519-7) 1.2 mmol/L 0.5-1.6 [facility] [id number] 01:31:58 Test Item Value Reference Range Interpretation Comments V Lactate (test code = 2519-7) 1.2 mmol/L 0.5-1.6 [facility] [id number] 01:31:58 Test Item Value Reference Range Interpretation Comments V Lactate (test code = 2519-7) 1.2 mmol/L 0.5-1.6 [facility] [id number] 01:31:58 Test Item Value Reference Range Interpretation Comments V Lactate (test code = 2519-7) 1.2 mmol/L 0.5-1.6 [facility] [id number] 01:31:58 Test Item Value Reference Range Interpretation Comments V Lactate (test code = 2519-7) 1.2 mmol/L 0.5-1.6 [facility] [id number] 01:31:58 Test Item Value Reference Range Interpretation Comments V Lactate (test code = 2519-7) 1.2 mmol/L 0.5-1.6 [facility] [id number] 01:31:58 Test Item Value Reference Range Interpretation Comments V Lactate (test code = 2519-7) 1.2 mmol/L 0.5-1.6 [facility] [id number] 01:31:58 Test Item Value Reference Range Interpretation Comments V Lactate (test code = 2519-7) 1.2 mmol/L 0.5-1.6 [facility] [id number] 01:31:58 Test Item Value Reference Range Interpretation Comments V Lactate (test code = 2519-7) 1.2 mmol/L 0.5-1.6 [facility] ([facility])Rvasjtevuxcz-[id number] 23:01:01 Test Item Value Reference Range Interpretation Comments COVID19 Not Detected Not Detected (SARS-CoV-2) (test code = 52653-3) COVID19 SARS Inpatient Indication (test Admission code = 91961) Covid 19 Comment See Note The ruby S ARS-CoV-2 (test code = [place] [address]) use on the jeanne s Chastity System [...] sheet for patie nts provided by the baby stroller rental clerk ([employer]) can be rev iewed at: https://www.fda .gov/m edia/533225/otf nload. A fact sheet fo r Health Care pro viders is provided by the baby stroller rental clerk ([employer], [email or web address]) and can be reviewed at: https://www.fda .gov/m edia/832255/otf nload Results must be interpreted wit hin [...] xity tests. The Microbiology Laboratory at [facility], CLIA Accreditation #[id number] and CAP Accreditation #[id number], verif ied the performance characteristics of this assay. Int ernal controls are us ed to monitor all sta ges of the test proces s. [facility])Lgwjjwoltjgg-XF2438-13-07 23:01:01 Test Item Value Reference Range Interpretation Comments COVID19 Not Detected Not Detected (SARS-CoV-2) (test code = 37537-8) COVID19 SARS Inpatient Indication (test Admission code = 91290) Covid 19 Comment See Note The ruby S ARS-CoV-2 (test code = [place] [address]) use on the jeanne s Chastity System [...] sheet for patie nts provided by the baby stroller rental clerk ([employer]) can be rev iewed at: https://www.fda .gov/m edia/264238/otf nload. A fact sheet fo r Health Care pro viders is provided by the baby stroller rental clerk ([employer]) and can be reviewed at: https://www.fda .gov/m edia/924239/otf nload Results must be interpreted wit hin [...] xity tests. The [facility] at [facility], CLIA Accreditation #[id number] and CAP Accreditation #[id number], verif ied the performance characteristics of this assay. Int ernal controls are us ed to monitor all sta ges of the test proces s. [facility] ([facility])Kbudoseacnfd-[id number] 23:01:01 Test Item Value Reference Range Interpretation Comments COVID19 Not Detected Not Detected (SARS-CoV-2) (test code = 18341-0) COVID19 SARS Inpatient Indication (test Admission code = 45225) Covid 19 Comment See Note The ruby S ARS-CoV-2 (test code = [place] [address]) use on the jeanne s Chastity System [...] sheet for patie nts provided by the baby stroller rental clerk ([employer]) can be rev iewed at: https://www.fda .gov/m edia/447231/otf nload. A fact sheet fo Health Care pro viders is provided by the baby stroller rental clerk ([employer], [email or web address]) and can be reviewed at: https://www.fda .gov/m edia/060009/otf nload Results must be interpreted wit hin [...] xity tests. The [facility] at [facility], CLIA Accreditation #[id number] and CAP Accreditation #[id number], verif ied the performance characteristics of this assay. Int ernal controls are us ed to monitor all sta ges of the test proces s. [facility] ([facility])Wkcjilwwjcra-QL0953-16-07 23:01:01 Test Item Value Reference Range Interpretation Comments COVID19 Not Detected Not Detected (SARS-CoV-2) (test code = 33614-8) COVID19 SARS Inpatient Indication (test Admission code = 60244) Covid 19 Comment See Note The ruby S ARS-CoV-2 (test code = [place] [address]) use on the jeanne s Chastity System [...] sheet for patie nts provided by the baby stroller rental clerk ([employer]) can be rev iewed at: https://www.[employer] .gov/m edia/543168/otf nload. A fact sheet fo Health Care pro viders is provided by the baby stroller rental clerk ([employer]) and can be reviewed at: https://www.[employer] .gov/m edia/392765/otf nload Results must be interpreted wit hin [...] xity tests. The [facility] at [facility], CLIA Accreditation #[id number] and CAP Accreditation #[id number], verif ied the performance characteristics of this assay. Int ernal controls are us ed to monitor all sta ges of the test proces s. [facility])Itvyozavazlc-KQ1552-25-07 23:01:01 Test Item Value Reference Range Interpretation Comments COVID19 Not Detected Not Detected (SARS-CoV-2) (test code = 48553-4) COVID19 SARS Inpatient Indication (test Admission code = 66819) Covid 19 Comment See Note The ruby S ARS-CoV-2 (test code = [place] [address]) use on the jeanne s Chastity System [...] sheet for patie nts provided by the baby stroller rental clerk ([employer]) can be rev iewed at: https://www.[employer] .gov/m edia/172080/otf nload. A fact sheet fo Health Care pro viders is provided by the baby stroller rental clerk ([employer]) and can be reviewed at: https://www.fda .gov/m edia/857064/otf nload Results must be interpreted wit hin [...] xity tests. The [facility] at [facility], CLIA Accreditation #[id number] and CAP Accreditation #[id number], verif ied the performance characteristics of this assay. Int ernal controls are us ed to monitor all sta ges of the test proces s. [facility]Pwlezbbhjsjq-WH4167-07-07 23:01:01 Test Item Value Reference Range Interpretation Comments COVID19 Not Detected Not Detected (SARS-CoV-2) (test code = 62413-0) COVID19 SARS Inpatient Indication (test Admission code = 10879) Covid 19 Comment See Note The ruby S ARS-CoV-2 (test code = [place] [address]) use on the jeanne s Chastity System [...] sheet for patie nts provided by the baby stroller rental clerk ([employer]) can be rev iewed at: https://www.fda .gov/m edia/148110/otf nload. A fact sheet fo Health Care pro viders is provided by the baby stroller rental clerk ([employer]) and can be reviewed at: https://www.fda .gov/m edia/586864/otf nload Results must be interpreted wit hin [...] xity tests. The [facility] at [facility], CLIA Accreditation #[id number] and CAP Accreditation #[id number], verif ied the performance characteristics of this assay. Int ernal controls are us ed to monitor all sta ges of the test proces s. [facility])Hhdvwgyevrwg-FO1325-60-07 23:01:01 Test Item Value Reference Range Interpretation Comments COVID19 Not Detected Not Detected (SARS-CoV-2) (test code = 45529-7) COVID19 SARS Inpatient Indication (test Admission code = 37756) Covid 19 Comment See Note The ruby S ARS-CoV-2 (test code = [place] [address]) use on the jeanne s Chastity System [...] sheet for patie nts provided by the baby stroller rental clerk ([employer]) can be rev iewed at: https://www.fda .gov/m edia/004588/otf nload. A fact sheet fo r Health Care pro viders is provided by the baby stroller rental clerk ([employer]) and can be reviewed at: https://www.fda .gov/m edia/000901/otf nload Results must be interpreted wit hin [...] is assay has been authorized by t [facility] for use only un teetee Emergency Use Authorization ( EUA) in laboratories that have been CLIA-certified to perform moderate-comple xity and high-comple xity tests. The [facility] at [facility], CLIA Accreditation #[id number] and CAP Accreditation #[id number], verif ied the performance characteristics of this assay. Int ernal controls are us ed to monitor all sta ges of the test proces s. [facility])Hghssbwnicxw-NG6489-88-07 23:01:01 Test Item Value Reference Range Interpretation Comments COVID19 Not Detected Not Detected (SARS-CoV-2) (test code = 24938-1) COVID19 SARS Inpatient Indication (test Admission code = 53318) Covid 19 Comment See Note The ruby S ARS-CoV-2 (test code = [place] [address]) use on the jeanne s Chastity System [...] sheet for patie nts provided by the baby stroller rental clerk ([employer]) can be rev iewed at: https://www.fda .gov/m edia/277312/otf nload. A fact sheet fo r Health Care pro viders is provided by the baby stroller rental clerk ([employer]) and can be reviewed at: https://www.fda .gov/m edia/935362/otf nload Results must be interpreted wit hin [...] is assay has been authorized by t [facility] for use only un teetee Emergency Use Authorization ( EUA) in laboratories that have been CLIA-certified to perform moderate-comple xity and high-comple xity tests. The [facility] at [facility], CLIA Accreditation #[id number] and CAP Accreditation #[id number], verif ied the performance characteristics of this assay. Int ernal controls are us ed to monitor all sta ges of the test proces s. [facility]Lrmfiwskgume-LK2805-42-07 23:01:01 Test Item Value Reference Range Interpretation Comments COVID19 Not Detected Not Detected (SARS-CoV-2) (test code = 14360-9) COVID19 SARS Inpatient Indication (test Admission code = 60452) Covid 19 Comment See Note The ruby S ARS-CoV-2 (test code = [place] [address]) use on the jeanne s Chastity System [...] sheet for patie nts provided by the baby stroller rental clerk ([employer]) can be rev iewed at: https://www.fda .gov/m edia/857524/otf nload. A fact sheet fo Health Care pro viders is provided by the baby stroller rental clerk ([employer], [email or web address]) and can be reviewed at: https://www.fda .gov/m edia/771044/otf nload Results must be interpreted wit hin [...] xity tests. The [facility] at [facility], CLIA Accreditation #[id number] and CAP Accreditation #[id number], verif ied the performance characteristics of this assay. Int ernal controls are us ed to monitor all sta ges of the test proces s. [facility]CKMB[facility] 21:13:54CK MB<2.0<=5.3 ng/mLUT [facility] 21:13:54CK MB<2.0<=5.3 ng/mLUT [facility] 2023-02-05 21:13:54CK MB<2.0<=5.3 ng/mLUT [facility]2023-04-07 21:13:54CK MB<2.0<=5.3 ng/mLUT [facility]2023-04-07 21:13:54CK MB<2.0<=5.3 ng/mLUT [facility] 2023-02-05 21:13:54CK MB<2.0<=5.3 ng/mLUT [facility]2023-04-07 21:13:54CK MB<2.0<=5.3 ng/mLUT [facility]2023-04-07 21:13:54CK MB<2.0<=5.3 ng/mLUT [facility] 2023-02-05 21:13:54CK MB<2.0<=5.3 ng/mLUT [facility] 21:08:09 Test Item Value Reference Range Interpretation Comments Lipase Lvl (test code = 3040-3) 18 U/L 13- [facility] 21:08:09 Test Item Value Reference Range Interpretation Comments Lipase Lvl (test code = 3040-3) 18 U/L 13-60 [facility] 21:08:09 Test Item Value Reference Range Interpretation Comments Lipase Lvl (test code = 3040-3) 18 U/L 13-60 [facility] 21:08:09 Test Item Value Reference Range Interpretation Comments Lipase Lvl (test code = 3040-3) 18 U/L 13-60 [facility] 21:08:09 Test Item Value Reference Range Interpretation Comments Lipase Lvl (test code = 3040-3) 18 U/L [facility] 21:08:09 Test Item Value Reference Range Interpretation Comments Lipase Lvl (test code = 3040-3) 18 U/L [facility] 21:08:09 Test Item Value Reference Range Interpretation Comments Lipase Lvl (test code = 3040-3) 18 U/L [facility] 21:08:09 Test Item Value Reference Range Interpretation Comments Lipase Lvl (test code = 3040-3) 18 U/L [facility] 21:08:09 Test Item Value Reference Range Interpretation Comments Lipase Lvl (test code = 3040-3) 18 U/L [facility] [id number] 21:08:08 Test Item Value Reference Range Interpretation Comments Amylase Lvl (test code = 1798-8) 43 U/L 28-100 [facility] [id number] 21:08:08 Test Item Value Reference Range Interpretation Comments Amylase Lvl (test code = 1798-8) 43 U/L 28-100 [facility] Gxqxv3191-81-75 21:08:08 Test Item Value Reference Range Interpretation Comments Amylase Lvl (test code = 1798-8) 43 U/L 28-100 [facility] [id number] 21:08:08 Test Item Value Reference Range Interpretation Comments Amylase Lvl (test code = 1798-8) 43 U/L 28-100 [facility] [id number] 21:08:08 Test Item Value Reference Range Interpretation Comments Amylase Lvl (test code = 1798-8) 43 U/L 28-100 [facility] Dzceu7641-01-64 21:08:08 Test Item Value Reference Range Interpretation Comments Amylase Lvl (test code = 1798-8) 43 U/L 28-100 [facility] HospitalAmylase [id number] 21:08:08 Test Item Value Reference Range Interpretation Comments Amylase Lvl (test code = 1798-8) 43 U/L 28-100 [facility]Am[facility] [id number] 21:08:08 Test Item Value Reference Range Interpretation Comments Amylase Lvl (test code = 1798-8) 43 U/L 28-100 [facility] [id number] 21:08:08 Test Item Value Reference Range Interpretation Comments Amylase Lvl (test code = 1798-8) 43 U/L 28-100 [facility]Hematocrit2023-[facility]-30 13:50:44 Test Item Value Reference Range Interpretation Comments Hct (test code = 4544-3) 40.6 % 37.0-47.0 [facility]ocrit20[facility] 13:50:44 Test Item Value Reference Range Interpretation Comments Hct (test code = 4544-3) 40.6 % 37.0-47.0 [facility]ocrit2023-[facility]-30 13:50:44 Test Item Value Reference Range Interpretation Comments Hct (test code = 4544-3) 40.6 % 37.0-47.0 [facility]ocrit2023-[facility]-30 13:50:44 Test Item Value Reference Range Interpretation Comments Hct (test code = 4544-3) 40.6 % 37.0-47.0 [facility]ocrit20[facility]-30 13:50:44 Test Item Value Reference Range Interpretation Comments Hct (test code = 4544-3) 40.6 % 37.0-47.0 [facility]rit20[facility]-30 13:50:44 Test Item Value Reference Range Interpretation Comments Hct (test code = 4544-3) 40.6 % 37.0-47.0 [facility]Hematocrit2023-[facility]-30 13:50:44 Test Item Value Reference Range Interpretation Comments Hct (test code = 4544-3) 40.6 % 37.0-47.0 [facility]rit20[facility]-30 13:50:44 Test Item Value Reference Range Interpretation Comments Hct (test code = 4544-3) 40.6 % 37.0-47.0 [facility]Hematocrit2023-[facility]-30 13:50:44 Test Item Value Reference Range Interpretation Comments Hct (test code = 4544-3) 40.6 % 37.0-47.0 [facility]Hemoglobin20[facility] 13:50:43 Test Item Value Reference Range Interpretation Comments Hgb (test code = 13.3 See_Comment [Automated message] The 8) system which ge nerated this result transmit kaylie reference range : 12.0 - 16.0 gm/dL. The reference range was not u sed to interpret this result as normal/abnormal . [facility] 13:50:43 Test Item Value Reference Range Interpretation Comments Hgb (test code = 13.3 See_Comment [Automated message] The 06-07) system which ge nerated this result transmit kaylie reference range : 12.0 - 16.0 gm/dL. The reference range was not u sed to interpret this result as normal/abnormal . [facility] 13:50:43 Test Item Value Reference Range Interpretation Comments Hgb (test code = 13.3 See_Comment [Automated message] The ) system which ge nerated this result transmit kaylie reference range : 12.0 - 16.0 gm/dL. The reference range was not u sed to interpret this result as normal/abnormal . [facility] 13:50:43 Test Item Value Reference Range Interpretation Comments Hgb (test code = 13.3 See_Comment [Automated message] The ) system which ge nerated this result transmit kaylie reference range : 12.0 - 16.0 gm/dL. The reference range was not u sed to interpret this result as normal/abnormal . [facility] 13:50:43 Test Item Value Reference Range Interpretation Comments Hgb (test code = 13.3 See_Comment [Automated message] The ) system which ge nerated this result transmit kaylie reference range : 12.0 - 16.0 gm/dL. The reference range was not u sed to interpret this result as normal/abnormal . [facility] 13:50:43 Test Item Value Reference Range Interpretation Comments Hgb (test code = 13.3 See_Comment [Automated message] The 8-) system which ge nerated this result transmit kaylie reference range : 12.0 - 16.0 gm/dL. The reference range was not u sed to interpret this result as normal/abnormal . [facility] 13:50:43 Test Item Value Reference Range Interpretation Comments Hgb (test code = 13.3 See_Comment [Automated message] The 8-) system which ge nerated this result transmit kaylie reference range : 12.0 - 16.0 gm/dL. The reference range was not u sed to interpret this result as normal/abnormal . [facility] 13:50:43 Test Item Value Reference Range Interpretation Comments Hgb (test code = 13.3 See_Comment [Automated message] The 8-) system which ge nerated this result transmit kaylie reference range : 12.0 - 16.0 gm/dL. The reference range was not u sed to interpret this result as normal/abnormal . [facility] 13:50:43 Test Item Value Reference Range Interpretation Comments Hgb (test code = 13.3 See_Comment [Automated message] The 8-) system which ge nerated this result transmit kaylie reference range : 12.0 - 16.0 gm/dL. The reference range was not u sed to interpret this result as normal/abnormal . [facility] HospitalTetrahydocannabinol (THC), Quantitative, [id number] 19:13:38 Test Item Value Reference Range Interpretation Comments U THC GC/MS-[facility] n/a (test code = 7812) U THC Inter-[facility] see note Carboxy-TH C Confirmation, (test code [...] Cutoff: 5 ======PERFORMIN G LAB:SDL [facility] [address] [place] [address] 905 Moe Guzman M.D. Ph.D. [id number] U THC [facility] n/a (test code = 7811) [facility] DallasTetrahydocannabinol (THC), Quantitative, [id number] 19:13:38 Test Item Value Reference Range Interpretation Comments U THC GC/MS-[facility] n/a (test code = 7812) U THC [facility] see note Carboxy-TH C Confirmation, (test [...] 42 ng/mLReference Value: Cutoff: 5 ======PERFORMIN G LAB:[facility] [address] 565 Moe Guzman M.D. Ph.D. [id number] U THC [facility] n/a (test code = 7811) [facility] DallasTetrahydocannabinol (THC), Quantitative, [id number] 19:13:38 Test Item Value Reference Range Interpretation Comments U THC GC/MS-[facility] n/a (test code = 7812) U THC [facility] see note Carboxy-TH C Confirmation, (test [...] 42 ng/mLReference Value: Cutoff: 5 ======PERFORMIN G LAB:[facility] [address] [address] 905 Moe Guzman M.D. Ph.D. [id number] U THC [place] n/a (test code = 7811) [facility] HospitalTetrahydocannabinol (THC), Quantitative, [id number] 19:13:38 Test Item Value Reference Range Interpretation Comments U THC GC/MS-[facility] n/a (test code = 7812) U THC Inter-[facility] see note Carboxy-TH C Confirmation, (test code [...] ng/mLReference Value: Cutoff: 5 ======PERFORMIN G LAB:SDL [facility] [address] [address] 06 Moe Guzman M.D. Ph.D. [id number] U THC [facility] n/a (test code = 7811) [facility] HospitalTetrahydocannabinol (THC), Quantitative, [id number] 19:13:38 Test Item Value Reference Range Interpretation Comments U THC GC/MS-[facility] n/a (test code = 7812) U THC [facility] see note Carboxy-TH C Confirmation, (test [...] 42 ng/mLReference Value: Cutoff: 5 ======MIGUELINAIN G LAB:[facility] [address] [place] [address] 85 Moe Guzman M.D. Ph.D. [id number] U THC [facility] n/a (test code = 7811) [facility] HospitalTetrahydocannabinol (THC), Quantitative, [id number] 19:13:38 Test Item Value Reference Range Interpretation Comments U THC GC/MS-[facility] n/a (test code = 7812) U THC Inter-[facility] see note Carboxy-TH C Confirmation, (test code [...] 42 ng/mLReference Value: Cutoff: 5 ======PERFORMIN G LAB:[facility] [address] [address] Moe Guzman M.D. Ph.D. [id number] U THC [facility] n/a (test code = 7811) [facility]Tetrahydocannabinol (THC), Quantitative, [id number] 19:13:38 Test Item Value Reference Range Interpretation Comments U THC GC/MS-[facility] n/a (test code = 7812) U THC Inter-[facility] see note Carboxy-TH C Confirmation, (test code [...] Cutoff: 5 ======PERFORMIN G LAB:SDL [facility] [address] [address] 90 Moe Guzman M.D. Ph.D. [id number] U THC [facility] n/a (test code = 7811) [facility]Tetrahydocannabinol (THC), Quantitative, [id number] 19:13:38 Test Item Value Reference Range Interpretation Comments U THC GC/MS-[facility] n/a (test code = 7812) U THC [facility] see note Carboxy-TH C Confirmation, (test [...] Cutoff: 5 ======PERFORMIN G LAB:SDL [facility] [facility] [place] [place] [address] 905 Moe Guzman M.D. Ph.D. [id number] U THC [facility] n/a (test code = 7811) [facility] HospitalTetrahydocannabinol (THC), Quantitative, [id number] 19:13:38 Test Item Value Reference Range Interpretation Comments U THC GC/MS-[facility] n/a (test code = 7812) U THC Inter-[facility] see note Carboxy-TH C Confirmation, (test code [...] 42 ng/mLReference Value: Cutoff: 5 ======PERFORMIN G LAB:[facility] Lab oratories [facility] [address] [facility] , [facility] [address] 905 Moe Guzman M.D. Ph.D. [id number] U THC [facility] n/a (test code = 7811) [facility] HospitalUrinalysis Microscopic Exam 2023-01-27 04:26:48 Test Item Value Reference Range Interpretation Comments UA WBC (test code = 6 See_Comment H Some rep orting 39950-1) parameters with in the Urinalysis test have changed due to the implementation of new instrumentation in the [facility] [place], [facility] [place] sens[place] vity of measurement. Urinalysis resu lts reported by the [facility] C enters using existing instrumentation , as well as Urinaly sis testing perform ed manually or by backup methodology at the [facility] [place] chino l remain relative ly unchanged. New reporting asha eters and units will not be reported for al l campuses. [Auto mated message] The sy stem which generated this result transmit kaylie reference range : 0 - 2 /HPF. The refer ence range was not u sed to interpret this result as normal/abnor mal. UA RBC (test code = See_Comment [Automa kaylie message] 42491-4) The system [employer] generated this result transmitted ref erence range: 0 - 2 /H PF. The reference range was not used to int erpret this result as normal/abnormal . UA Mucous (test code = NOT SEEN Not Seen-Trace 30832-9) /HPF UA Bacteria (test code NOT SEEN NOT SEEN /HPF = 04656-4) UA Squam Epi (test OCC None-Occasional code = 99988-8) /HPF Lab Interpretation Abnormal (test code = 03124-1) [facility] Microscopic Exam 2023-01-27 04:26:48 Test Item Value Reference Range Interpretation Comments UA WBC (test code = 6 See_Comment H Some rep orting 18026-2) parameters with in the Urinalysis test have changed due to the implementation of new instrumentation in the [facility], al lowing greater sensiti vity of measurement. Urinalysis resu lts reported by the [facility] C enters using existing instrumentation , as well as Urinaly sis testing perform ed manually or by backup methodology at the [facility] chino l remain relative ly unchanged. [...] (test code = See_Comment [Automa kaylie message] 92885-7) The system [employer] generated this result transmitted ref erence range: 0 - 2 /H PF. The reference range was not used to int erpret this result as normal/abnormal . UA Mucous (test code = NOT SEEN Not Seen-Trace 27178-7) /HPF UA Bacteria (test code NOT SEEN NOT SEEN /HPF = 45304-8) UA Squam Epi (test OCC None-Occasional code = 61513-3) /HPF Lab Interpretation Abnormal (test code = 15253-1) [facility] Ex[facility] 2023-01-27 04:26:48 Test Item Value Reference Range Interpretation Comments UA WBC (test code = 6 See_Comment H Some rep orting 88370-4) parameters with in the Urinalysis test have changed due to the implementation of new instrumentation in the [facility], al lowing greater sensiti vity of measurement. Urinalysis resu lts reported by the [facility] C enters using existing instrumentation , as well as Urinaly sis testing perform ed manually or by backup methodology at the [facility] chino l remain relative ly unchanged. [...] (test code = See_Comment [Automa kaylie message] 04597-6) The system [employer] generated this result transmitted ref erence range: 0 - 2 /H PF. The reference range was not used to int erpret this result as normal/abnormal . UA Mucous (test code = NOT SEEN Not Seen-Trace 46303-2) /HPF UA Bacteria (test code NOT SEEN NOT SEEN /HPF = 67952-2) UA Squam Epi (test OCC None-Occasional code = 68016-8) /HPF Lab Interpretation Abnormal (test code = 16590-0) [facility]Urinal[facility] Microscopic Exam 2023-01-27 04:26:48 Test Item Value Reference Range Interpretation Comments UA WBC (test code = 6 See_Comment H Some rep orting 11129-6) parameters with in the Urinalysis test have changed due to the implementation of new instrumentation in the [facility] [place], al lowing greater sensiti vity of measurement. Urinalysis resu lts reported by the [facility] C enters using existing instrumentation , as well as Urinaly sis testing perform ed manually or by backup methodology at the [facility] chino l remain relative ly unchanged. [...] (test code = See_Comment [Automa kaylie message] 90053-5) The system [employer] h generated this result transmitted ref erence range: 0 - 2 /H PF. The reference range was not used to int erpret this result as normal/abnormal . UA Mucous (test code = NOT SEEN Not Seen-Trace 83053-0) /HPF UA Bacteria (test code NOT SEEN NOT SEEN /HPF = 58383-5) UA Squam Epi (test OCC None-Occasional code = 47284-5) /HPF Lab Interpretation Abnormal (test code = 53302-5) [facility] Microscopic Exam 2023-01-27 04:26:48 Test Item Value Reference Range Interpretation Comments UA WBC (test code = 6 See_Comment H Some rep orting 24164-8) parameters with in the Urinalysis test have changed due to the implementation of new instrumentation in the [facility] [place], al lowing greater sensiti vity of measurement. Urinalysis resu lts reported by the [facility] C enters using existing instrumentation , as well as Urinaly sis testing perform ed manually or by backup methodology at the [facility] chino l remain relative ly unchanged. [...] (test code = See_Comment [Automa kaylie message] 47784-2) The system [employer] generated this result transmitted ref erence range: 0 - 2 /H PF. The reference range was not used to int erpret this result as normal/abnormal . UA Mucous (test code = NOT SEEN Not Seen-Trace 53081-1) /HPF UA Bacteria (test code NOT SEEN NOT SEEN /HPF = 15572-5) UA Squam Epi (test OCC None-Occasional code = 94756-4) /HPF Lab Interpretation Abnormal (test code = 85041-9) [facility] Microscopic Exam 2023-01-27 04:26:48 Test Item Value Reference Range Interpretation Comments UA WBC (test code = 6 See_Comment H Some rep orting 94868-2) parameters with in the Urinalysis test have changed due to the implementation of new instrumentation in the [facility], al lowing greater sensiti vity of measurement. Urinalysis resu lts reported by the [facility] C enters using existing instrumentation , as well as Urinaly sis testing perform ed manually or by backup methodology at the [facility] chino l remain relative ly unchanged. [...] (test code = See_Comment [Automa kaylie message] 28704-6) The system [employer] generated this result transmitted ref erence range: 0 - 2 /H PF. The reference range was not used to int erpret this result as normal/abnormal . UA Mucous (test code = NOT SEEN Not Seen-Trace 09753-7) /HPF UA Bacteria (test code NOT SEEN NOT SEEN /HPF = 11355-8) UA Squam Epi (test OCC None-Occasional code = 23910-4) /HPF Lab Interpretation Abnormal (test code = 77820-3) [facility]opic Exam 2023-01-27 04:26:48 Test Item Value Reference Range Interpretation Comments UA WBC (test code = 6 See_Comment H Some rep orting 06565-4) parameters with in the Urinalysis test have changed due to the implementation of new instrumentation in the [facility], al lowing greater sensiti vity of measurement. Urinalysis resu lts reported by the [facility] C enters using existing instrumentation , as well as Urinaly sis testing perform ed manually or by backup methodology at the [facility] chino l remain relative ly unchanged. [...] (test code = See_Comment [Automa kaylie message] 13776-5) The system [employer] generated this result transmitted ref erence range: 0 - 2 /H PF. The reference range was not used to int erpret this result as normal/abnormal . UA Mucous (test code = NOT SEEN Not Seen-Trace 40981-9) /HPF UA Bacteria (test code NOT SEEN NOT SEEN /HPF = 66335-0) UA Squam Epi (test OCC None-Occasional code = 88543-4) /HPF Lab Interpretation Abnormal (test code = 62293-3) [facility] Microscopic Exam 2023-01-27 04:26:48 Test Item Value Reference Range Interpretation Comments UA WBC (test code = 6 See_Comment H Some rep orting 24392-3) parameters with in the Urinalysis test have changed due to the implementation of new instrumentation in the [facility], al lowing greater sensiti vity of measurement. Urinalysis resu lts reported by the [facility] C enters using existing instrumentation , as well as Urinaly sis testing perform ed manually or by backup methodology at the [facility] chino l remain relative ly unchanged. [...] (test code = See_Comment [Automa kaylie message] 47308-1) The system [employer] generated this result transmitted ref erence range: 0 - 2 /H PF. The reference range was not used to int erpret this result as normal/abnormal . UA Mucous (test code = NOT SEEN Not Seen-Trace 06421-3) /HPF UA Bacteria (test code NOT SEEN NOT SEEN /HPF = 51461-5) UA Squam Epi (test OCC None-Occasional code = 22917-8) /HPF Lab Interpretation Abnormal (test code = 37545-2) [facility] Microscopic Exam 2023-01-27 04:26:48 Test Item Value Reference Range Interpretation Comments UA WBC (test code = 6 See_Comment H Some rep orting 44140-3) parameters with in the Urinalysis test have changed due to the implementation of new instrumentation in the [facility], [facility] [place] vity of measurement. Urinalysis resu lts reported by the [facility] C enters using existing instrumentation , as well as Urinaly sis testing perform ed manually or by backup methodology at the [facility] chino l remain relative ly unchanged. [...] (test code = See_Comment [Automa kaylie message] 95461-0) The system [employer] generated this result transmitted ref erence range: 0 - 2 /H PF. The reference range was not used to int erpret this result as normal/abnormal . UA Mucous (test code = NOT SEEN Not Seen-Trace 95324-6) /HPF UA Bacteria (test code NOT SEEN NOT SEEN /HPF = 12313-3) UA Squam Epi (test OCC None-Occasional code = 42285-5) /HPF Lab Interpretation Abnormal (test code = 33432-9) [facility]Urinalysis w/Microscopic if [id number] 03:58:37 Test Item Value Reference Range Interpretation Comments UA Color (test code = 34032-9) Straw Straw-Yellow UA Appear (test code = 37202-6) Clear Clear UA Glucose (test code = [...] NEG Lab Interpretation (test code = Abnormal 66405-0) [facility]inalysis w/Microscopic if [id number] 03:58:37 Test Item Value Reference Range Interpretation Comments UA Color (test code = 09915-3) Straw Straw-Yellow UA Appear (test code = 89913-3) Clear Clear UA Glucose (test code = [...] NEG Lab Interpretation (test code = Abnormal 39649-4) [facility]Urinalysis w/Microscopic if [id number] 03:58:37 Test Item Value Reference Range Interpretation Comments UA Color (test code = 89405-6) Straw Straw-Yellow UA Appear (test code = 17093-2) Clear Clear UA Glucose (test code = [...] NEG Lab Interpretation (test code = Abnormal 21325-8) [facility]ysis w/Microscopic if [id number] 03:58:37 Test Item Value Reference Range Interpretation Comments UA Color (test code = 81799-3) Straw Straw-Yellow UA Appear (test code = 87027-4) Clear Clear UA Glucose (test code = [...] NEG Lab Interpretation (test code = Abnormal 38732-7) [facility]Urinalysis w/Microscopic if [id number] 03:58:37 Test Item Value Reference Range Interpretation Comments UA Color (test code = 92549-7) Straw Straw-Yellow UA Appear (test code = 59614-6) Clear Clear UA Glucose (test code = [...] NEG Lab Interpretation (test code = Abnormal 33562-8) [facility]inalysis w/Microscopic if [id number] 03:58:37 Test Item Value Reference Range Interpretation Comments UA Color (test code = 84818-5) Straw Straw-Yellow UA Appear (test code = 54748-2) Clear Clear UA Glucose (test code = [...] NEG Lab Interpretation (test code = Abnormal 12706-6) [facility] w/Microscopic if [id number] 03:58:37 Test Item Value Reference Range Interpretation Comments UA Color (test code = 40347-0) Straw Straw-Yellow UA Appear (test code = 78042-9) Clear Clear UA Glucose (test code = [...] NEG Lab Interpretation (test code = Abnormal 50049-5) [facility] w/Microscopic if [id number] 03:58:37 Test Item Value Reference Range Interpretation Comments UA Color (test code = 86327-3) Straw Straw-Yellow UA Appear (test code = 16715-6) Clear Clear UA Glucose (test code = [...] NEG Lab Interpretation (test code = Abnormal 05355-6) [facility]Ur[facility] w/Microscopic if [id number] 03:58:37 Test Item Value Reference Range Interpretation Comments UA Color (test code = 03442-2) Straw Straw-Yellow UA Appear (test code = 82460-7) Clear Clear UA Glucose (test code = [...] NEG Lab Interpretation (test code = Abnormal 85942-6) [facility]LDH[facility] 20:38:14 Test Item Value Reference Range Interpretation Comments LDH (test code = 289 U/L 135-214 H Results gre ater than 44310-8) 1651 U/L may no t be reliable due to matrix effect w ith extended diluti on as it exceeds the baby stroller rental clerk's recommended [place] it. Caution should be exercised when interpreting [place] ch values and done in conjunction [facility] clinical contex t. Lab Interpretation (test Abnormal code = 77845-8) [facility]LDH[facility] 20:38:14 Test Item Value Reference Range Interpretation Comments LDH (test code = 289 U/L 135-214 H Results gre ater than 77838-6) 1651 U/L may no t be reliable due to matrix effect w ith extended diluti on as it exceeds the baby stroller rental clerk's recommended [place] it. Caution should be exercised when interpreting [place] ch values and done in conjunction [facility] clinical contex t. Lab Interpretation (test Abnormal code = 89503-0) [facility] 20:38:14 Test Item Value Reference Range Interpretation Comments LDH (test code = 289 U/L 135-214 H Results gre ater than 26724-9) 1651 U/L may no t be reliable due to matrix effect w ith extended diluti on as it exceeds the baby stroller rental clerk's recommended [place] it. Caution should be exercised when interpreting [place] ch values and done in conjunction [facility] clinical contex t. Lab Interpretation (test Abnormal code = 27848-9) [facility]LDH[facility] 20:38:14 Test Item Value Reference Range Interpretation Comments LDH (test code = 289 U/L 135-214 H Results gre ater than 26555-9) 1651 U/L may no t be reliable due to matrix effect w ith extended diluti on as it exceeds the baby stroller rental clerk's recommended [place]berg it. Caution should be exercised when interpreting [place] ch values and done in conjunction [facility] clinical contex t. Lab Interpretation (test Abnormal code = 98861-8) [facility] Test Item Value Reference Range Interpretation Comments LDH (test code = 289 U/L 135-214 H Results gre ater than 33078-1) 1651 U/L may no t be reliable due to matrix effect w ith extended diluti on as it exceeds the baby stroller rental clerk's recommended goldberg it. Caution should be exercised when interpreting lanc[place] ch values and done in conjunction [facility] clinical Kob[employer] t. Lab Interpretation (test Abnormal code = 96884-0) [facility] Test Item Value Reference Range Interpretation Comments LDH (test code = 289 U/L 135-214 H Results gre ater than 87817-8) 1651 U/L may no t be reliable due to matrix effect w ith extended diluti on as it exceeds the baby stroller rental clerk's recommended goldberg it. Caution should be exercised when interpreting lancaster ch values and done in conjunction [facility] clinical [employer] t. Lab Interpretation (test Abnormal code = 23301-1) [facility] Test Item Value Reference Range Interpretation Comments LDH (test code = 289 U/L 135-214 H Results gre ater than 43189-0) 1651 U/L may no t be reliable due to matrix effect w ith extended diluti on as it exceeds the baby stroller rental clerk's recommended goldberg it. Caution should be exercised when interpreting l[place] ch values and done in conjunction [facility] clinical Kob[employer] t. Lab Interpretation (test Abnormal code = 46398-6) [facility] Test Item Value Reference Range Interpretation Comments LDH (test code = 289 U/L 135-214 H Results gre ater than 06793-2) 1651 U/L may no t be reliable due to matrix effect w ith extended diluti on as it exceeds the baby stroller rental clerk's recommended goldberg it. Caution should be exercised when interpreting lancaster ch values and done in conjunction wit h clinical contex t. Lab Interpretation (test Abnormal code = 45137-2) [facility] Test Item Value Reference Range Interpretation Comments LDH (test code = 289 U/L 135-214 H Results gre ater than 29603-7) 1651 U/L may no t be reliable due to matrix effect w ith extended diluti on as it exceeds the baby stroller rental clerk's recommended goldberg it. Caution should be exercised when interpreting lancaster ch values and done in conjunction wit h clinical contex t. Lab Interpretation (test Abnormal code = 42010-2) [facility], [id number] 09:20:34 Test Item Value Reference Interpretation Comments Range Urine Creatinine 55.1 mg/dL (test code = 2161-8) Urine Specific 1.014 [place] (test code = 5810-7) Urine Ph (test 6.2 code = 2756-5) Urine Oxidants Negative Cutoff: 200 (test code = mg/L 03036-4) Urine Comment Normal (test code = 83860-9) U Negative Cutoff: 200 Barbiturates-Luu ng/mL (test code = 03859-4) U Cocaine Lvl-Grant Negative Cutoff: 150 This coca ine immunoassay (test code = ng/mL targets benzoyl ecgonine 56429-0) theprimary meta bolite of cocaine. U THC-Grant (test See Cutoff: 50 A RESULT: Pre sumptive code = 32136-7) Footnote ng/mL PositiveThis immunoassay targets delta-9 tetrahydrocanna [...] code Not Cutoff: 25 Tylenol 3 = 80764-0) Detected ng/mL Wcskeir-1-amjp-glu Not Cutoff: 100 Metabolit e of codeine curonide (test Detected ng/mL code = 91924-8) Morphine (test Not Cutoff: 25 Avinza, Gayle n, MS Contin; Also code = 98238-0) Detected ng/mL a minor meta bolite (10%) ofcodeine and c an be seen in low concentrati ons (<2,000ng/mL) w ith poppy seed ingestion. Gsfbgfia-5-ymdo-gl Not Cutoff: 100 Metabolit e of morphine ucuronide (test Detected ng/mL code = 02964-7) 6-monoacetylmorphi Not Cutoff: 25 Metabolit e of heroin ne (test code = Detected ng/mL 05228-4) Hydrocodone (test Not Cutoff: 25 Lortab, No rco, Vicodin; Also a code = 85455-3) Detected ng/mL very minor m etabolite ofcodeine and impurity (< 1%) of oxycodone. Norhydrocodone Not Cutoff: 25 Metabolite of hydrocodone (test code = Detected ng/mL 98350-2) Dihydrocodeine Not Cutoff: 25 Metabolite of hydrocodone (test code = Detected ng/mL 73801-9) Hydromorphone Not Cutoff: 25 Dilaudid, Exal go; Also a (test code = Detected ng/mL metabolite of h ydrocodone and 34279-9) aminor (<5%) me tabolite of morphine. Bpufxutjwelzw-9-xx Not Cutoff: 100 Metabolit e of hydromorphone ta-glucuronide Detected ng/mL (test code = 91088-5) Oxycodone (test Present Cutoff: 25 A Endocet, Per cocet, Oxycontin code = 50994-7) ng/mL Noroxycodone (test Present Cutoff: 25 A Metabolit e of oxycodone code = 22496-0) ng/mL Oxymorphone (test Not Cutoff: 25 Numorphan, Opana; Also a code = 59403-4) Detected ng/mL metabolite o f oxycodone. Orbkydvsatb-6-vkmp Not Cutoff: 100 Metabolit e of oxymorphone -glucuronide (test Detected ng/mL and/or na loxone (nornaloxone) code = 22260-5) Noroxymorphone Present Cutoff: 25 A Metabolite of oxymorphone (test code = ng/mL and/or naloxone (nornaloxone) 29974-0) Fentanyl (test Not Cutoff: 2 Actiq, Durage sic, Fentora code = 89656-5) Detected ng/mL Norfentanyl (test Not Cutoff: 2 Metabolite of fentanyl code = 80325-3) Detected ng/mL Meperidine (test Not Cutoff: 25 Demerol code = 39350-9) Detected ng/mL Normeperidine Not Cutoff: 25 Metabolite of meperidine (test code = Detected ng/mL 91935-9) Naloxone (test Not Cutoff: 25 Narcan code = 54448-1) Detected ng/mL Pcbbraem-9-oakf-gl Not Cutoff: 100 Metabolit e of naloxone ucuronide (test Detected ng/mL code = 56575-7) U Methadone (test Not Cutoff: 25 Dolophine code = 34219-7) Detected ng/mL EDDP (test code = Not Cutoff: 25 Metabolite of methadone 14920-6) Detected ng/mL Propoxyphene (test Not Cutoff: 25 Darvon, D arvocet code = 71876-6) Detected ng/mL Norpropoxyphene Not Cutoff: 25 Metabolite o f propoxyphene (test code = Detected ng/mL 72248-5) Tramadol (test Not Cutoff: 25 Tradol, Ultra m, Ultracet code = 27574-6) Detected ng/mL O-desmethyltramado Not Cutoff: 25 Metabolit e of tramadol l (test code = Detected ng/mL 94776-4) Tapentadol (test Not Cutoff: 25 Nucynta code = 80991-0) Detected ng/mL Oycepmrkvs-ecpj-oy Not Cutoff: 100 Metabolit e of tapentadol ucuronide (test Detected ng/mL code = 47696-5) Buprenorphine Not Cutoff: 5 Buprenex, Subo xone (test code = Detected ng/mL 09138-6) Norbuprenorphine Not Cutoff: 5 Metabolite of buprenorphine (test code = Detected ng/mL 44256-6) Norbuprenorphine Not Cutoff: 20 Metabolite of buprenorphine Glucuronide (test Detected ng/mL code = 66767-9) Benzodiazepine See Test detected the presence of Interp Urine (test Footnote alprazola m and two of code = 03694-0) itsmetabolit es (alpha-hydroxya lprazolam andalpha-hydrox yalprazolam glucuronide). S uspect use ofalprazolam wi thin the past three days. Hailey t detected the presence of zol pidem wynvrc-8-gvplfs ylicacid (metabolite of zolpidem) only. Suspect use of zolpidemwithin the past four d ays. ----ADDITIONAL INFORMATION---- T his test was de veloped and its performance characteristics determined by [facility] in a manner consistent with CLIArequirement s. This test has not been cleare d or approved bythe U.S. Food and Drug Administration. Alprazolam Urine Present Cutoff: 10 A Xanax (test code = ng/mL 98492-1) Alpha-Hydroxyalpra Present Cutoff: 10 A Metabolit e of Alprazolam zolam Urine (test ng/mL code = 40424-3) Alpha-Hydroxyalpra Present Cutoff: 50 A Metabolit e of Alprazolam zolam Glucuronide ng/mL Urine (test code = 87133-6) Chlordiazepoxide Not Cutoff: 10 Librium Urine (test code = Detected ng/mL 02471-2) Colbazam Urine Not Cutoff: 10 Frisium, Onfi (test code = Detected ng/mL 16509-2) N-Desmethylclobaza Not Cutoff: 200 Metabolit e of Clobazam m Urine (test code Detected ng/mL = 39238-4) Clonazepam Urine Not Cutoff: 10 Klonopin, R ivotril (test code = Detected ng/mL 40841-2) 7-Aminoclonazepam Not Cutoff: 10 Metabolite of Clonazepam Urine (test code = Detected ng/mL 77447-8) Diazepam Urine Not Cutoff: 10 Valium (test code = Detected ng/mL 20736-3) Nordiazepam Urine Not Cutoff: 10 Metabolite of Chlordiazepoxide, (test code = Detected ng/mL Diazepam, or Pr azepam. 92694-8) Flunitrazepam Not Cutoff: 10 Rohypnol Urine (test code = Detected ng/mL 59057-2) 7-Aminoflunitrazep Not Cutoff: 10 Metabolit e of Flunitrazepam am Urine (test Detected ng/mL code = 55981-7) FlUrinerazepam Not Cutoff: 10 Dalmane Urine (test code = Detected ng/mL 27241-2) 2-Hydroxy Ethyl Not Cutoff: 10 Metabolite o f Flurazepam Flurazepam Urine Detected ng/mL (test code = 94024-4) Lorazepam Urine Not Cutoff: 10 Ativan (test code = Detected ng/mL 95744-3) Lorazepam Not Cutoff: 50 Metabolite of L orazepam Glucuronide Urine Detected ng/mL (test code = 06901-3) Midazolam Urine Not Cutoff: 10 Versed (test code = Detected ng/mL 36003-3) Alpha-Hydroxy Not Cutoff: 10 Metabolite of Midazolam Midazolam Urine Detected ng/mL (test code = 40503-2) Oxazepam Urine Not Cutoff: 10 Serax; Also a metabolite of (test code = Detected ng/mL Chlordiazepoxid e, Diazepam, ) orTemazepam. Oxazepam Not Cutoff: 50 Metabolite of O xazepam Glucuronide Urine Detected ng/mL (test code = 76165-2) Prazepam Urine Not Cutoff: 10 Centrax (test code = Detected ng/mL 96692-2) Temazepam Urine Not Cutoff: 10 Restoril; Al so a metabolite of (test code = Detected ng/mL Diazepam. 58187-7) Temazepam Not Cutoff: 50 Metabolite of T emazepam Glucuronide Urine Detected ng/mL (test code = 34104-7) Triazolam Urine Not Cutoff: 10 Halcion (test code = Detected ng/mL 70063-0) Alpha-Hydroxy Not Cutoff: 10 Metabolite of Triazolam Triazolam Urine Detected ng/mL (test code = 63395-0) Zolpidem Urine Not Cutoff: 10 Ambien (test code = Detected ng/mL 51907-4) Zolpidem Present Cutoff: 10 A Metabolite of Z olpidem Fbghy-3-Asmuifxjcv ng/mL Acid Urine (test code = 34858-5) Methamphetamine Not Cutoff: 100 Desoxyn (test code = Detected ng/mL 67707-1) Amphetamine (test Not Cutoff: 100 Dyanavel X R, Adzenys ER, code = 44744-1) Detected ng/mL Adderall, Vy vanse; Also ametabolite of methamphetamine 3,4-Methylenedioxy Not Cutoff: 100 methamphetamine Detected ng/mL (MDMA) (test code = 73066-5) 3,4-Methylenedioxy Not Cutoff: 100 -N-Ethylamphetamin Detected ng/mL e (MDEA) (test code = 11854-2) 3,4-Methylenedioxy Not Cutoff: 100 Also a me tabolite of MDMA amphetamine (MDA) Detected ng/mL and/or MDE A (test code = 38513-4) Ephedrine (test Not Cutoff: 100 code = 74933) Detected ng/mL Pseudoephedrine Present Cutoff: 100 A Sudafed (test code = ng/mL 01726) Phentermine (test Not Cutoff: 100 Adipex-P, Lomaira, Qsymia code = 89082-2) Detected ng/mL Phencyclidine Not Cutoff: 20 (PCP) (test code = Detected ng/mL 02546-0) Methylphenidate Not Cutoff: 20 Ritalin, Con certa (test code = Detected ng/mL 86458-4) Ritalinic acid Not Cutoff: 100 Metabolite of methylphenidate (test code = Detected ng/mL 86445) Stimulant See Test detected t he presence of Interpretation Footnote pseudoephedri ne. Suspect useof (test code = pseudoephedrine within the past 68272-5) three days. ----ADDITIONAL INFORMATION---- T his test was de veloped and its performance characteristics determined by [facility] in a manner consistent with CLIArequirement s. This test has not been cleare d or approved bythe U.S. Food and Drug Administration. [facility] [id number] [place], [place] [address]Gjo Dir ronnie: Moe Guzman M.D. Ph.D.; CLIA# [id number] Patients Current NOT ---------ADDITIONAL Medications (test ANSWERED INFORMATIO N A code = 48224-7) ccuracy and completeness of declared medica tions onreports solely dependen t on information submitted bymarco a umaña. Lab Interpretation Abnormal (test code = 11653-7) [facility], [id number] 09:20:34 Test Item Value Reference Interpretation Comments Range Urine Creatinine 55.1 mg/dL (test code = 2161-8) Urine Specific 1.014 [place] (test code = 5810-7) Urine Ph (test 6.2 code = 2756-5) Urine Oxidants Negative Cutoff: 200 (test code = mg/L 23442-0) Urine Comment Normal (test code = 44009-8) U Negative Cutoff: 200 Barbiturates-Grant ng/mL (test code = 77451-2) U Cocaine Lvl-Grant Negative Cutoff: 150 This coca ine immunoassay (test code = ng/mL targets benzoyl ecgonine 46998-6) theprimary meta bolite of cocaine. U THC-Grant (test See Cutoff: 50 A RESULT: Pre sumptive code = 40529-5) Footnote ng/mL PositiveThis immunoassay targets delta-9 tetrahydrocanna [...] code Not Cutoff: 25 Tylenol 3 = 91412-2) Detected ng/mL Gmyzrzu-3-trir-glu Not Cutoff: 100 Metabolit e of codeine curonide (test Detected ng/mL code = 27533-2) Morphine (test Not Cutoff: 25 Gayle Mary n, MS Contin; Also code = 39019-4) Detected ng/mL a minor meta bolite (10%) ofcodeine and c an be seen in low concentrati ons (<2,000ng/mL) w ith poppy seed ingestion. Muohngbs-6-qmqs-gl Not Cutoff: 100 Metabolit e of morphine ucuronide (test Detected ng/mL code = 59321-3) 6-monoacetylmorphi Not Cutoff: 25 Metabolit e of heroin ne (test code = Detected ng/mL 92246-0) Hydrocodone (test Not Cutoff: 25 Lortab, No rco, Vicodin; Also a code = 36533-7) Detected ng/mL very minor m etabolite ofcodeine and impurity (< 1%) of oxycodone. Norhydrocodone Not Cutoff: 25 Metabolite of hydrocodone (test code = Detected ng/mL 42623-0) Dihydrocodeine Not Cutoff: 25 Metabolite of hydrocodone (test code = Detected ng/mL 28843-1) Hydromorphone Not Cutoff: 25 Dilaudid, Exal go; Also a (test code = Detected ng/mL metabolite of h ydrocodone and 65106-6) aminor (<5%) me tabolite of morphine. Ynantqxccqmrk-7-wh Not Cutoff: 100 Metabolit e of hydromorphone ta-glucuronide Detected ng/mL (test code = 73381-0) Oxycodone (test Present Cutoff: 25 A Endocet, Per cocet, Oxycontin code = 38589-5) ng/mL Noroxycodone (test Present Cutoff: 25 A Metabolit e of oxycodone code = 82767-9) ng/mL Oxymorphone (test Not Cutoff: 25 Numorphan, Opana; Also a code = 43778-1) Detected ng/mL metabolite o f oxycodone. Rvyjcdrajmv-9-fuss Not Cutoff: 100 Metabolit e of oxymorphone -glucuronide (test Detected ng/mL and/or na loxone (nornaloxone) code = 61625-1) Noroxymorphone Present Cutoff: 25 A Metabolite of oxymorphone (test code = ng/mL and/or naloxone (nornaloxone) 45429-6) Fentanyl (test Not Cutoff: 2 Actiq, Durage sic, Fentora code = 50930-2) Detected ng/mL Norfentanyl (test Not Cutoff: 2 Metabolite of fentanyl code = 99428-6) Detected ng/mL Meperidine (test Not Cutoff: 25 Demerol code = 69902-6) Detected ng/mL Normeperidine Not Cutoff: 25 Metabolite of meperidine (test code = Detected ng/mL 49840-2) Naloxone (test Not Cutoff: 25 Narcan code = 27250-4) Detected ng/mL Radicslw-6-obwh-gl Not Cutoff: 100 Metabolit e of naloxone ucuronide (test Detected ng/mL code = 00158-4) U Methadone (test Not Cutoff: 25 Dolophine code = 75528-0) Detected ng/mL EDDP (test code = Not Cutoff: 25 Metabolite of methadone 08718-0) Detected ng/mL Propoxyphene (test Not Cutoff: 25 Darvon, D arvocet code = 97386-4) Detected ng/mL Norpropoxyphene Not Cutoff: 25 Metabolite o f propoxyphene (test code = Detected ng/mL 41391-2) Tramadol (test Not Cutoff: 25 Tradol, Ultra m, Ultracet code = 15437-9) Detected ng/mL O-desmethyltramado Not Cutoff: 25 Metabolit e of tramadol l (test code = Detected ng/mL 87566-1) Tapentadol (test Not Cutoff: 25 Nucynta code = 35058-6) Detected ng/mL Bdbgnmurzp-qdbf-vz Not Cutoff: 100 Metabolit e of tapentadol ucuronide (test Detected ng/mL code = 89386-7) Buprenorphine Not Cutoff: 5 Buprenex, Subo xone (test code = Detected ng/mL 43046-0) Norbuprenorphine Not Cutoff: 5 Metabolite of buprenorphine (test code = Detected ng/mL 18018-9) Norbuprenorphine Not Cutoff: 20 Metabolite of buprenorphine Glucuronide (test Detected ng/mL code = 67197-3) Benzodiazepine See Test detected the presence of Interp Urine (test Footnote alprazola m and two of code = 08550-4) itsmetabolit es (alpha-hydroxya lprazolam andalpha-hydrox yalprazolam glucuronide). S uspect use ofalprazolam wi thin the past three days. Hailey t detected the presence of zol pidem ooobju-0-vroedo ylicacid (metabolite of zolpidem) only. Suspect use of zolpidemwithin the past four d ays. ----ADDITIONAL INFORMATION---- T his test was de veloped and its performance characteristics determined by [facility] in a manner consistent with CLIArequirement s. This test has not been cleare d or approved bythe U.S. Food and Drug Administration. Alprazolam Urine Present Cutoff: 10 A Xanax (test code = ng/mL 82301-2) Alpha-Hydroxyalpra Present Cutoff: 10 A Metabolit e of Alprazolam zolam Urine (test ng/mL code = 40128-1) Alpha-Hydroxyalpra Present Cutoff: 50 A Metabolit e of Alprazolam zolam Glucuronide ng/mL Urine (test code = 03120-5) Chlordiazepoxide Not Cutoff: 10 Librium Urine (test code = Detected ng/mL 68020-0) Colbazam Urine Not Cutoff: 10 Frisium, Onfi (test code = Detected ng/mL 22059-6) N-Desmethylclobaza Not Cutoff: 200 Metabolit e of Clobazam m Urine (test code Detected ng/mL = 97834-6) Clonazepam Urine Not Cutoff: 10 Klonopin, R ivotril (test code = Detected ng/mL 87493-5) 7-Aminoclonazepam Not Cutoff: 10 Metabolite of Clonazepam Urine (test code = Detected ng/mL 35630-5) Diazepam Urine Not Cutoff: 10 Valium (test code = Detected ng/mL 36522-7) Nordiazepam Urine Not Cutoff: 10 Metabolite of Chlordiazepoxide, (test code = Detected ng/mL Diazepam, or Pr azepam. 48905-8) Flunitrazepam Not Cutoff: 10 Rohypnol Urine (test code = Detected ng/mL 90093-0) 7-Aminoflunitrazep Not Cutoff: 10 Metabolit e of Flunitrazepam am Urine (test Detected ng/mL code = 72404-7) FlUrinerazepam Not Cutoff: 10 Dalmane Urine (test code = Detected ng/mL 71497-8) 2-Hydroxy Ethyl Not Cutoff: 10 Metabolite o f Flurazepam Flurazepam Urine Detected ng/mL (test code = 56211-4) Lorazepam Urine Not Cutoff: 10 Ativan (test code = Detected ng/mL 98478-6) Lorazepam Not Cutoff: 50 Metabolite of L orazepam Glucuronide Urine Detected ng/mL (test code = 87185-5) Midazolam Urine Not Cutoff: 10 Versed (test code = Detected ng/mL 02971-2) Alpha-Hydroxy Not Cutoff: 10 Metabolite of Midazolam Midazolam Urine Detected ng/mL (test code = 75838-3) Oxazepam Urine Not Cutoff: 10 Serax; Also a metabolite of (test code = Detected ng/mL Chlordiazepoxid e, Diazepam, 05179-0) orTemazepam. Oxazepam Not Cutoff: 50 Metabolite of O xazepam Glucuronide Urine Detected ng/mL (test code = 36975-0) Prazepam Urine Not Cutoff: 10 Centrax (test code = Detected ng/mL 86031-7) Temazepam Urine Not Cutoff: 10 Restoril; Al so a metabolite of (test code = Detected ng/mL Diazepam. 06917-6) Temazepam Not Cutoff: 50 Metabolite of T emazepam Glucuronide Urine Detected ng/mL (test code = 24241-2) Triazolam Urine Not Cutoff: 10 Halcion (test code = Detected ng/mL 18512-0) Alpha-Hydroxy Not Cutoff: 10 Metabolite of Triazolam Triazolam Urine Detected ng/mL (test code = 65468-6) Zolpidem Urine Not Cutoff: 10 Ambien (test code = Detected ng/mL 47200-1) Zolpidem Present Cutoff: 10 A Metabolite of Z olpidem Wfmsy-7-Cvlfehxwqn ng/mL Acid Urine (test code = 16675-0) Methamphetamine Not Cutoff: 100 Desoxyn (test code = Detected ng/mL 02556-3) Amphetamine (test Not Cutoff: 100 Dyanavel X R, Adzenys ER, code = 62888-1) Detected ng/mL Adderall, Vy vanse; Also ametabolite of methamphetamine 3,4-Methylenedioxy Not Cutoff: 100 methamphetamine Detected ng/mL (MDMA) (test code = 82977-5) 3,4-Methylenedioxy Not Cutoff: 100 -N-Ethylamphetamin Detected ng/mL e (MDEA) (test code = 32095-4) 3,4-Methylenedioxy Not Cutoff: 100 Also a me tabolite of MDMA amphetamine (MDA) Detected ng/mL and/or MDE A (test code = 19787-3) Ephedrine (test Not Cutoff: 100 code = 54540) Detected ng/mL Pseudoephedrine Present Cutoff: 100 A Sudafed (test code = ng/mL 53489) Phentermine (test Not Cutoff: 100 Adipex-P, Lomaira, Qsymia code = 61743-5) Detected ng/mL Phencyclidine Not Cutoff: 20 (PCP) (test code = Detected ng/mL 04470-4) Methylphenidate Not Cutoff: 20 Ritalin, Con certa (test code = Detected ng/mL 62235-2) Ritalinic acid Not Cutoff: 100 Metabolite of methylphenidate (test code = Detected ng/mL 45447) Stimulant See Test detected t he presence of Interpretation Footnote pseudoephedri ne. Suspect useof (test code = pseudoephedrine within the past 45735-0) three days. ----ADDITIONAL INFORMATION---- T his test was de veloped and its performance characteristics determined by [facility] in a manner consistent with Letiment s. This test has not been cleare d or approved bythe U.S. Food and Drug Administration. Test Performed by:[facility] [place][Note 2] [id number] [place], [place] [address]Ukm Dir ronnie: Moe Guzman M.D. Ph.D.; CLIA# [id number] Patients Current NOT ---------ADDITIONAL Medications (test ANSWERED INFORMATIO N A code = 92890-2) ccuracy and completeness of declared medica tions onreports solely dependen t on information submitted bymarco a umaña. Lab Interpretation Abnormal (test code = 63334-8) [facility], [id number] 09:20:34 Test Item Value Reference Interpretation Comments Range Urine Creatinine 55.1 mg/dL (test code = 2161-8) Urine Specific 1.014 [place] (test code = 5810-7) Urine Ph (test 6.2 code = 2756-5) Urine Oxidants Negative Cutoff: 200 (test code = mg/L 59521-9) Urine Comment Normal (test code = 90062-4) U Negative Cutoff: 200 Barbiturates-Grant ng/mL (test code = 26671-6) U Cocaine Lvl-Grant Negative Cutoff: 150 This coca ine immunoassay (test code = ng/mL targets benzoyl ecgonine 27876-2) theprimary meta bolite of cocaine. U THC-Grant (test See Cutoff: 50 A RESULT: Pre sumptive code = 27884-6) Footnote ng/mL PositiveThis immunoassay targets delta-9 tetrahydrocanna [...] code Not Cutoff: 25 Tylenol 3 = 24804-3) Detected ng/mL Rmtjzml-4-gwaq-glu Not Cutoff: 100 Metabolit e of codeine curonide (test Detected ng/mL code = 77355-1) Morphine (test Not Cutoff: 25 AviGayle peter n, MS Contin; Also code = 15293-6) Detected ng/mL a minor meta bolite (10%) ofcodeine and c an be seen in low concentrati ons (<2,000ng/mL) w ith poppy seed ingestion. Rqgalkop-4-cmli-gl Not Cutoff: 100 Metabolit e of morphine ucuronide (test Detected ng/mL code = 38390-5) 6-monoacetylmorphi Not Cutoff: 25 Metabolit e of heroin ne (test code = Detected ng/mL 02352-6) Hydrocodone (test Not Cutoff: 25 Lortab, No rco, Vicodin; Also a code = 67522-1) Detected ng/mL very minor m etabolite ofcodeine and impurity (< 1%) of oxycodone. Norhydrocodone Not Cutoff: 25 Metabolite of hydrocodone (test code = Detected ng/mL 11331-7) Dihydrocodeine Not Cutoff: 25 Metabolite of hydrocodone (test code = Detected ng/mL 10690-5) Hydromorphone Not Cutoff: 25 Dilaudid, Exal go; Also a (test code = Detected ng/mL metabolite of h ydrocodone and 51006-3) aminor (<5%) me tabolite of morphine. Kqpmmdzlttswk-8-zl Not Cutoff: 100 Metabolit e of hydromorphone ta-glucuronide Detected ng/mL (test code = 33472-8) Oxycodone (test Present Cutoff: 25 A Endocet, Per cocet, Oxycontin code = 16337-2) ng/mL Noroxycodone (test Present Cutoff: 25 A Metabolit e of oxycodone code = 11753-8) ng/mL Oxymorphone (test Not Cutoff: 25 Numorphan, Opana; Also a code = 63830-8) Detected ng/mL metabolite o f oxycodone. Siyshsdzveq-8-kwrg Not Cutoff: 100 Metabolit e of oxymorphone -glucuronide (test Detected ng/mL and/or na loxone (nornaloxone) code = 37193-8) Noroxymorphone Present Cutoff: 25 A Metabolite of oxymorphone (test code = ng/mL and/or naloxone (nornaloxone) 94325-6) Fentanyl (test Not Cutoff: 2 Actiq, Durage sic, Fentora code = 91601-3) Detected ng/mL Norfentanyl (test Not Cutoff: 2 Metabolite of fentanyl code = 82321-8) Detected ng/mL Meperidine (test Not Cutoff: 25 Demerol code = 72548-6) Detected ng/mL Normeperidine Not Cutoff: 25 Metabolite of meperidine (test code = Detected ng/mL 81862-4) Naloxone (test Not Cutoff: 25 Narcan code = 50586-0) Detected ng/mL Wptaxxbd-9-jtof-gl Not Cutoff: 100 Metabolit e of naloxone ucuronide (test Detected ng/mL code = 19537-1) U Methadone (test Not Cutoff: 25 Dolophine code = 93083-4) Detected ng/mL EDDP (test code = Not Cutoff: 25 Metabolite of methadone 68570-7) Detected ng/mL Propoxyphene (test Not Cutoff: 25 Darvon, D arvocet code = 51491-2) Detected ng/mL Norpropoxyphene Not Cutoff: 25 Metabolite o f propoxyphene (test code = Detected ng/mL 45405-0) Tramadol (test Not Cutoff: 25 Tradol, Ultra m, Ultracet code = 63384-7) Detected ng/mL O-desmethyltramado Not Cutoff: 25 Metabolit e of tramadol l (test code = Detected ng/mL 62064-1) Tapentadol (test Not Cutoff: 25 Nucynta code = 39181-4) Detected ng/mL Rghubcwnlk-xtgs-ec Not Cutoff: 100 Metabolit e of tapentadol ucuronide (test Detected ng/mL code = 37473-6) Buprenorphine Not Cutoff: 5 Buprenex, Subo xone (test code = Detected ng/mL 09067-0) Norbuprenorphine Not Cutoff: 5 Metabolite of buprenorphine (test code = Detected ng/mL 43008-3) Norbuprenorphine Not Cutoff: 20 Metabolite of buprenorphine Glucuronide (test Detected ng/mL code = 45976-4) Benzodiazepine See Test detected the presence of Interp Urine (test Footnote alprazola m and two of code = 92560-5) itsmetabolit es (alpha-hydroxya lprazolam andalpha-hydrox yalprazolam glucuronide). S uspect use ofalprazolam wi thin the past three days. Hailey t detected the presence of zol pidem aphlmr-7-fqapob ylicacid (metabolite of zolpidem) only. Suspect use of zolpidemwithin the past four d ays. ----ADDITIONAL INFORMATION---- T his test was de veloped and its performance characteristics determined by [facility] in a manner consistent with CLIArequirement s. This test has not been cleare d or approved bythe U.S. Food and Drug Administration. Alprazolam Urine Present Cutoff: 10 A Xanax (test code = ng/mL 64825-8) Alpha-Hydroxyalpra Present Cutoff: 10 A Metabolit e of Alprazolam zolam Urine (test ng/mL code = 35391-6) Alpha-Hydroxyalpra Present Cutoff: 50 A Metabolit e of Alprazolam zolam Glucuronide ng/mL Urine (test code = 26107-7) Chlordiazepoxide Not Cutoff: 10 Librium Urine (test code = Detected ng/mL 07671-7) Colbazam Urine Not Cutoff: 10 Frisium, Onfi (test code = Detected ng/mL 01129-3) N-Desmethylclobaza Not Cutoff: 200 Metabolit e of Clobazam m Urine (test code Detected ng/mL = 64453-3) Clonazepam Urine Not Cutoff: 10 Klonopin, R ivotril (test code = Detected ng/mL 52835-4) 7-Aminoclonazepam Not Cutoff: 10 Metabolite of Clonazepam Urine (test code = Detected ng/mL 86041-6) Diazepam Urine Not Cutoff: 10 Valium (test code = Detected ng/mL 96801-8) Nordiazepam Urine Not Cutoff: 10 Metabolite of Chlordiazepoxide, (test code = Detected ng/mL Diazepam, or Pr azepam. 62946-9) Flunitrazepam Not Cutoff: 10 Rohypnol Urine (test code = Detected ng/mL 83415-3) 7-Aminoflunitrazep Not Cutoff: 10 Metabolit e of Flunitrazepam am Urine (test Detected ng/mL code = 77098-1) FlUrinerazepam Not Cutoff: 10 Dalmane Urine (test code = Detected ng/mL 92712-2) 2-Hydroxy Ethyl Not Cutoff: 10 Metabolite o f Flurazepam Flurazepam Urine Detected ng/mL (test code = 79168-7) Lorazepam Urine Not Cutoff: 10 Ativan (test code = Detected ng/mL 87785-5) Lorazepam Not Cutoff: 50 Metabolite of L orazepam Glucuronide Urine Detected ng/mL (test code = 67559-7) Midazolam Urine Not Cutoff: 10 Versed (test code = Detected ng/mL 65185-9) Alpha-Hydroxy Not Cutoff: 10 Metabolite of Midazolam Midazolam Urine Detected ng/mL (test code = 45331-1) Oxazepam Urine Not Cutoff: 10 Serax; Also a metabolite of (test code = Detected ng/mL Chlordiazepoxid e, Diazepam, ) orTemazepam. Oxazepam Not Cutoff: 50 Metabolite of O xazepam Glucuronide Urine Detected ng/mL (test code = 80759-0) Prazepam Urine Not Cutoff: 10 Centrax (test code = Detected ng/mL ) Temazepam Urine Not Cutoff: 10 Restoril; Al so a metabolite of (test code = Detected ng/mL Diazepam. 88127-7) Temazepam Not Cutoff: 50 Metabolite of T emazepam Glucuronide Urine Detected ng/mL (test code = 16576-2) Triazolam Urine Not Cutoff: 10 Halcion (test code = Detected ng/mL 53605-6) Alpha-Hydroxy Not Cutoff: 10 Metabolite of Triazolam Triazolam Urine Detected ng/mL (test code = 14695-7) Zolpidem Urine Not Cutoff: 10 Ambien (test code = Detected ng/mL 77597-4) Zolpidem Present Cutoff: 10 A Metabolite of Z olpidem Gbcbg-6-Eqddgakaul ng/mL Acid Urine (test code = 96224-7) Methamphetamine Not Cutoff: 100 Desoxyn (test code = Detected ng/mL 21013-3) Amphetamine (test Not Cutoff: 100 Dyanavel X R, Adzenys ER, code = 31776-2) Detected ng/mL Adderall, Vy vanse; Also ametabolite of methamphetamine 3,4-Methylenedioxy Not Cutoff: 100 methamphetamine Detected ng/mL (MDMA) (test code = 72152-4) 3,4-Methylenedioxy Not Cutoff: 100 -N-Ethylamphetamin Detected ng/mL e (MDEA) (test code = 75339-0) 3,4-Methylenedioxy Not Cutoff: 100 Also a me tabolite of MDMA amphetamine (MDA) Detected ng/mL and/or MDE A (test code = 13876-2) Ephedrine (test Not Cutoff: 100 code = 51788) Detected ng/mL Pseudoephedrine Present Cutoff: 100 A Sudafed (test code = ng/mL 03473) Phentermine (test Not Cutoff: 100 Adipex-P, Lomaira, Qsymia code = 43814-4) Detected ng/mL Phencyclidine Not Cutoff: 20 (PCP) (test code = Detected ng/mL 00189-8) Methylphenidate Not Cutoff: 20 Ritalin, Con certa (test code = Detected ng/mL 20986-9) Ritalinic acid Not Cutoff: 100 Metabolite of methylphenidate (test code = Detected ng/mL 78033) Stimulant See Test detected t he presence of Interpretation Footnote pseudoephedri ne. Suspect useof (test code = pseudoephedrine within the past 07492-9) three days. ----ADDITIONAL INFORMATION---- T his test was de veloped and its performance characteristics determined by [facility] in a manner consistent with CLIArequirement s. This test has not been cleare d or approved bythe U.S. Food and Drug Administration. Test [facility]formed by:[facility] [id number] [place], [place] [address] Dir ronnie: Moe Guzman M.D. Ph.D.; CLIA# [id number] Patients Current NOT ---------ADDITIONAL Medications (test ANSWERED INFORMATIO N A code = 64972-9) ccuracy and completeness of declared medica tions onreports solely dependen t on information submitted bymarco a umaña. Lab Interpretation Abnormal (test code = 02019-5) [facility] [place], [id number] 09:20:34 Test Item Value Reference Interpretation Comments Range Urine Creatinine 55.1 mg/dL (test code = 2161-8) Urine Specific 1.014 [place] (test code = 5810-7) Urine Ph (test 6.2 code = 2756-5) Urine Oxidants Negative Cutoff: 200 (test code = mg/L 76118-2) Urine Comment Normal (test code = 63319-8) U Negative Cutoff: 200 Barbiturates-Luu ng/mL (test code = 51989-0) U Cocaine Lvl-Luu Negative Cutoff: 150 This coca ine immunoassay (test code = ng/mL targets benzoyl ecgonine 96524-2) theprimary meta bolite of cocaine. U THC-Luu (test See Cutoff: 50 A RESULT: Pre sumptive code = 22294-0) Footnote ng/mL PositiveThis immunoassay targets delta-9 tetrahydrocanna [...] code Not Cutoff: 25 Tylenol 3 = 86988-9) Detected ng/mL Cwhsejo-6-zdyo-glu Not Cutoff: 100 Metabolit e of codeine curonide (test Detected ng/mL code = 83414-7) Morphine (test Not Cutoff: 25 Avinza, Gayle n, MS Contin; Also code = 24553-4) Detected ng/mL a minor meta bolite (10%) ofcodeine and c an be seen in low concentrati ons (<2,000ng/mL) w ith poppy seed ingestion. Kzsqcxjc-9-zwkl-gl Not Cutoff: 100 Metabolit e of morphine ucuronide (test Detected ng/mL code = 22776-8) 6-monoacetylmorphi Not Cutoff: 25 Metabolit e of heroin ne (test code = Detected ng/mL 29364-0) Hydrocodone (test Not Cutoff: 25 Lortab, No rco, Vicodin; Also a code = 35221-3) Detected ng/mL very minor m etabolite ofcodeine and impurity (< 1%) of oxycodone. Norhydrocodone Not Cutoff: 25 Metabolite of hydrocodone (test code = Detected ng/mL 95486-4) Dihydrocodeine Not Cutoff: 25 Metabolite of hydrocodone (test code = Detected ng/mL 59389-9) Hydromorphone Not Cutoff: 25 Dilaudid, Exal go; Also a (test code = Detected ng/mL metabolite of h ydrocodone and 94524-4) aminor (<5%) me tabolite of morphine. Permjdhnxvzmi-7-cc Not Cutoff: 100 Metabolit e of hydromorphone ta-glucuronide Detected ng/mL (test code = 07629-3) Oxycodone (test Present Cutoff: 25 A Endocet, Per cocet, Oxycontin code = 69400-7) ng/mL Noroxycodone (test Present Cutoff: 25 A Metabolit e of oxycodone code = 71315-8) ng/mL Oxymorphone (test Not Cutoff: 25 Numorphan, Opana; Also a code = 12344-5) Detected ng/mL metabolite o f oxycodone. Igsvnklkfij-5-ywuo Not Cutoff: 100 Metabolit e of oxymorphone -glucuronide (test Detected ng/mL and/or na loxone (nornaloxone) code = 30744-2) Noroxymorphone Present Cutoff: 25 A Metabolite of oxymorphone (test code = ng/mL and/or naloxone (nornaloxone) 65114-9) Fentanyl (test Not Cutoff: 2 Actiq, Durage sic, Fentora code = 72806-3) Detected ng/mL Norfentanyl (test Not Cutoff: 2 Metabolite of fentanyl code = 83496-8) Detected ng/mL Meperidine (test Not Cutoff: 25 Demerol code = 90595-1) Detected ng/mL Normeperidine Not Cutoff: 25 Metabolite of meperidine (test code = Detected ng/mL 01202-3) Naloxone (test Not Cutoff: 25 Narcan code = 37111-8) Detected ng/mL Nmjwxuwm-9-qayu-gl Not Cutoff: 100 Metabolit e of naloxone ucuronide (test Detected ng/mL code = 59371-1) U Methadone (test Not Cutoff: 25 Dolophine code = 57028-9) Detected ng/mL EDDP (test code = Not Cutoff: 25 Metabolite of methadone 85383-8) Detected ng/mL Propoxyphene (test Not Cutoff: 25 Darvon, D arvocet code = 26955-8) Detected ng/mL Norpropoxyphene Not Cutoff: 25 Metabolite o f propoxyphene (test code = Detected ng/mL 33425-8) Tramadol (test Not Cutoff: 25 Tradol, Ultra m, Ultracet code = 94819-5) Detected ng/mL O-desmethyltramado Not Cutoff: 25 Metabolit e of tramadol l (test code = Detected ng/mL 20476-9) Tapentadol (test Not Cutoff: 25 Nucynta code = 05277-7) Detected ng/mL Ehelxhdfif-ekhn-cg Not Cutoff: 100 Metabolit e of tapentadol ucuronide (test Detected ng/mL code = 86607-6) Buprenorphine Not Cutoff: 5 Buprenex, Subo xone (test code = Detected ng/mL 06157-6) Norbuprenorphine Not Cutoff: 5 Metabolite of buprenorphine (test code = Detected ng/mL 89156-9) Norbuprenorphine Not Cutoff: 20 Metabolite of buprenorphine Glucuronide (test Detected ng/mL code = 78132-4) Benzodiazepine See Test detected the presence of Interp Urine (test Footnote alprazola m and two of code = 42302-0) itsmetabolit es (alpha-hydroxya lprazolam andalpha-hydrox yalprazolam glucuronide). S uspect use ofalprazolam wi thin the past three days. Hailey t detected the presence of zol pidem gclgbd-5-dlfvtk ylicacid (metabolite of zolpidem) only. Suspect use of zolpidemwithin the past four d ays. ----ADDITIONAL INFORMATION---- T his test was de veloped and its performance characteristics determined by [facility] in a manner consistent with CLIArequirement s. This test has not been cleare d or approved bythe U.S. Food and Drug Administration. Alprazolam Urine Present Cutoff: 10 A Xanax (test code = ng/mL 38540-4) Alpha-Hydroxyalpra Present Cutoff: 10 A Metabolit e of Alprazolam zolam Urine (test ng/mL code = 29561-2) Alpha-Hydroxyalpra Present Cutoff: 50 A Metabolit e of Alprazolam zolam Glucuronide ng/mL Urine (test code = 19985-8) Chlordiazepoxide Not Cutoff: 10 Librium Urine (test code = Detected ng/mL 95046-8) Colbazam Urine Not Cutoff: 10 Frisium, Onfi (test code = Detected ng/mL 99880-7) N-Desmethylclobaza Not Cutoff: 200 Metabolit e of Clobazam m Urine (test code Detected ng/mL = 20185-6) Clonazepam Urine Not Cutoff: 10 Klonopin, R ivotril (test code = Detected ng/mL 28756-0) 7-Aminoclonazepam Not Cutoff: 10 Metabolite of Clonazepam Urine (test code = Detected ng/mL 57420-5) Diazepam Urine Not Cutoff: 10 Valium (test code = Detected ng/mL 13112-0) Nordiazepam Urine Not Cutoff: 10 Metabolite of Chlordiazepoxide, (test code = Detected ng/mL Diazepam, or Pr azepam. 81214-6) Flunitrazepam Not Cutoff: 10 Rohypnol Urine (test code = Detected ng/mL 16109-3) 7-Aminoflunitrazep Not Cutoff: 10 Metabolit e of Flunitrazepam am Urine (test Detected ng/mL code = 62195-1) FlUrinerazepam Not Cutoff: 10 Dalmane Urine (test code = Detected ng/mL 57092-5) 2-Hydroxy Ethyl Not Cutoff: 10 Metabolite o f Flurazepam Flurazepam Urine Detected ng/mL (test code = 84676-4) Lorazepam Urine Not Cutoff: 10 Ativan (test code = Detected ng/mL 92918-2) Lorazepam Not Cutoff: 50 Metabolite of L orazepam Glucuronide Urine Detected ng/mL (test code = 79296-8) Midazolam Urine Not Cutoff: 10 Versed (test code = Detected ng/mL 86761-1) Alpha-Hydroxy Not Cutoff: 10 Metabolite of Midazolam Midazolam Urine Detected ng/mL (test code = 67566-4) Oxazepam Urine Not Cutoff: 10 Serax; Also a metabolite of (test code = Detected ng/mL Chlordiazepoxid e, Diazepam, 90849-2) orTemazepam. Oxazepam Not Cutoff: 50 Metabolite of O xazepam Glucuronide Urine Detected ng/mL (test code = 85891-3) Prazepam Urine Not Cutoff: 10 Centrax (test code = Detected ng/mL 43886-1) Temazepam Urine Not Cutoff: 10 Restoril; Al so a metabolite of (test code = Detected ng/mL Diazepam. 98122-3) Temazepam Not Cutoff: 50 Metabolite of T emazepam Glucuronide Urine Detected ng/mL (test code = 18450-5) Triazolam Urine Not Cutoff: 10 Halcion (test code = Detected ng/mL 86864-9) Alpha-Hydroxy Not Cutoff: 10 Metabolite of Triazolam Triazolam Urine Detected ng/mL (test code = 05042-6) Zolpidem Urine Not Cutoff: 10 Ambien (test code = Detected ng/mL 11811-1) Zolpidem Present Cutoff: 10 A Metabolite of Z olpidem Ozvap-2-Jgclkapvdz ng/mL Acid Urine (test code = 58820-9) Methamphetamine Not Cutoff: 100 Desoxyn (test code = Detected ng/mL 15330-4) Amphetamine (test Not Cutoff: 100 Dyanavel X R, Adzenys ER, code = 65420-8) Detected ng/mL Adderall, Vy vanse; Also ametabolite of methamphetamine 3,4-Methylenedioxy Not Cutoff: 100 methamphetamine Detected ng/mL (MDMA) (test code = 64286-5) 3,4-Methylenedioxy Not Cutoff: 100 -N-Ethylamphetamin Detected ng/mL e (MDEA) (test code = 51846-2) 3,4-Methylenedioxy Not Cutoff: 100 Also a me tabolite of MDMA amphetamine (MDA) Detected ng/mL and/or MDE A (test code = 13666-6) Ephedrine (test Not Cutoff: 100 code = 14359) Detected ng/mL Pseudoephedrine Present Cutoff: 100 A Sudafed (test code = ng/mL 99303) Phentermine (test Not Cutoff: 100 Adipex-P, Lomaira, Qsymia code = 31182-9) Detected ng/mL Phencyclidine Not Cutoff: 20 (PCP) (test code = Detected ng/mL 09729-9) Methylphenidate Not Cutoff: 20 Ritalin, Con certa (test code = Detected ng/mL 54655-3) Ritalinic acid Not Cutoff: 100 Metabolite of methylphenidate (test code = Detected ng/mL 37210) Stimulant See Test detected t he presence of Interpretation Footnote pseudoephedri ne. Suspect useof (test code = pseudoephedrine within the past 88747-1) three days. ----ADDITIONAL INFORMATION---- T his test was de veloped and its performance characteristics determined by [facility] in a manner consistent with CLIArequirement s. This test has not been cleare d or approved bythe U.S. Food and Drug Administration. Test Performed by:[facility] [id number] [place], [place] [address] Dir ronnie: Moe Guzman M.D. Ph.D.; CLIA# [id number] Patients Current NOT ---------ADDITIONAL Medications (test ANSWERED INFORMATIO N A code = 14420-0) ccuracy and completeness of declared medica tions onreports solely dependen t on information submitted byshanei leeroy. Lab Interpretation Abnormal (test code = 20812-5) [facility] [place] [facility], [id number] 09:20:34 Test Item Value Reference Interpretation Comments Range Urine Creatinine 55.1 mg/dL (test code = 2161-8) Urine Specific 1.014 [place] (test code = 5810-7) Urine Ph (test 6.2 code = 2756-5) Urine Oxidants Negative Cutoff: 200 (test code = mg/L 05682-7) Urine Comment Normal (test code = 06060-4) U Negative Cutoff: 200 Barbiturates-Luu ng/mL (test code = 00542-2) U Cocaine Lvl-Luu Negative Cutoff: 150 This coca ine immunoassay (test code = ng/mL targets benzoyl ecgonine 61690-4) theprimary meta bolite of cocaine. U THC-Grant (test See Cutoff: 50 A RESULT: Pre sumptive code = 44438-3) Footnote ng/mL PositiveThis immunoassay targets delta-9 tetrahydrocanna [...] code Not Cutoff: 25 Tylenol 3 = 36457-2) Detected ng/mL Otkfiwr-0-ebod-glu Not Cutoff: 100 Metabolit e of codeine curonide (test Detected ng/mL code = 77333-4) Morphine (test Not Cutoff: 25 Gayle Mary, MS Contin; Also code = 04006-8) Detected ng/mL a minor meta bolite (10%) ofcodeine and c an be seen in low concentrati ons (<2,000ng/mL) w ith poppy seed ingestion. Fklxjnww-4-nkcq-gl Not Cutoff: 100 Metabolit e of morphine ucuronide (test Detected ng/mL code = 98966-7) 6-monoacetylmorphi Not Cutoff: 25 Metabolit e of heroin ne (test code = Detected ng/mL 57746-2) Hydrocodone (test Not Cutoff: 25 Lortab, No rco, Vicodin; Also a code = 34078-6) Detected ng/mL very minor m etabolite ofcodeine and impurity (< 1%) of oxycodone. Norhydrocodone Not Cutoff: 25 Metabolite of hydrocodone (test code = Detected ng/mL 06692-1) Dihydrocodeine Not Cutoff: 25 Metabolite of hydrocodone (test code = Detected ng/mL 58661-2) Hydromorphone Not Cutoff: 25 Dilaudid, Exal go; Also a (test code = Detected ng/mL metabolite of h ydrocodone and 10133-9) aminor (<5%) me tabolite of morphine. Ifdsqmeyltebd-8-bv Not Cutoff: 100 Metabolit e of hydromorphone ta-glucuronide Detected ng/mL (test code = 00855-0) Oxycodone (test Present Cutoff: 25 A Endocet, Per cocet, Oxycontin code = 33828-3) ng/mL Noroxycodone (test Present Cutoff: 25 A Metabolit e of oxycodone code = 57711-4) ng/mL Oxymorphone (test Not Cutoff: 25 Numorphan, Opana; Also a code = 00499-0) Detected ng/mL metabolite o f oxycodone. Ijpyclvalml-2-kayp Not Cutoff: 100 Metabolit e of oxymorphone -glucuronide (test Detected ng/mL and/or na loxone (nornaloxone) code = 32843-0) Noroxymorphone Present Cutoff: 25 A Metabolite of oxymorphone (test code = ng/mL and/or naloxone (nornaloxone) 49589-1) Fentanyl (test Not Cutoff: 2 Actiq, Durage sic, Fentora code = 56815-0) Detected ng/mL Norfentanyl (test Not Cutoff: 2 Metabolite of fentanyl code = 34251-8) Detected ng/mL Meperidine (test Not Cutoff: 25 Demerol code = 13036-8) Detected ng/mL Normeperidine Not Cutoff: 25 Metabolite of meperidine (test code = Detected ng/mL 44708-6) Naloxone (test Not Cutoff: 25 Narcan code = 31611-8) Detected ng/mL Fzxxxldj-3-hcuf-gl Not Cutoff: 100 Metabolit e of naloxone ucuronide (test Detected ng/mL code = 11278-7) U Methadone (test Not Cutoff: 25 Dolophine code = 46981-3) Detected ng/mL EDDP (test code = Not Cutoff: 25 Metabolite of methadone 89761-0) Detected ng/mL Propoxyphene (test Not Cutoff: 25 Darvon, D arvocet code = 79691-0) Detected ng/mL Norpropoxyphene Not Cutoff: 25 Metabolite o f propoxyphene (test code = Detected ng/mL 30090-8) Tramadol (test Not Cutoff: 25 Tradol, Ultra m, Ultracet code = 80534-8) Detected ng/mL O-desmethyltramado Not Cutoff: 25 Metabolit e of tramadol l (test code = Detected ng/mL 98829-1) Tapentadol (test Not Cutoff: 25 Nucynta code = 84379-4) Detected ng/mL Sapgclaxbb-bbmo-en Not Cutoff: 100 Metabolit e of tapentadol ucuronide (test Detected ng/mL code = 64205-4) Buprenorphine Not Cutoff: 5 Buprenex, Subo xone (test code = Detected ng/mL 63725-8) Norbuprenorphine Not Cutoff: 5 Metabolite of buprenorphine (test code = Detected ng/mL 45283-4) Norbuprenorphine Not Cutoff: 20 Metabolite of buprenorphine Glucuronide (test Detected ng/mL code = 56363-9) Benzodiazepine See Test detected the presence of Interp Urine (test Footnote alprazola m and two of code = 10311-3) itsmetabolit es (alpha-hydroxya lprazolam andalpha-hydrox yalprazolam glucuronide). S uspect use ofalprazolam wi thin the past three days. Hailey t detected the presence of zol pidem gqctil-2-vjqbjk ylicacid (metabolite of zolpidem) only. Suspect use of zolpidemwithin the past four d ays. ----ADDITIONAL INFORMATION---- T his test was de veloped and its performance characteristics determined by [facility] in a manner consistent with CLIArequirement s. This test has not been cleare d or approved bythe U.S. Food and Drug Administration. Alprazolam Urine Present Cutoff: 10 A Xanax (test code = ng/mL 10076-1) Alpha-Hydroxyalpra Present Cutoff: 10 A Metabolit e of Alprazolam zolam Urine (test ng/mL code = 34267-9) Alpha-Hydroxyalpra Present Cutoff: 50 A Metabolit e of Alprazolam zolam Glucuronide ng/mL Urine (test code = 76181-9) Chlordiazepoxide Not Cutoff: 10 Librium Urine (test code = Detected ng/mL 04369-8) Colbazam Urine Not Cutoff: 10 Frisium, Onfi (test code = Detected ng/mL 09801-8) N-Desmethylclobaza Not Cutoff: 200 Metabolit e of Clobazam m Urine (test code Detected ng/mL = 51760-9) Clonazepam Urine Not Cutoff: 10 Klonopin, R ivotril (test code = Detected ng/mL 47865-7) 7-Aminoclonazepam Not Cutoff: 10 Metabolite of Clonazepam Urine (test code = Detected ng/mL 20355-3) Diazepam Urine Not Cutoff: 10 Valium (test code = Detected ng/mL 37880-0) Nordiazepam Urine Not Cutoff: 10 Metabolite of Chlordiazepoxide, (test code = Detected ng/mL Diazepam, or Pr azepam. 72884-4) Flunitrazepam Not Cutoff: 10 Rohypnol Urine (test code = Detected ng/mL 51356-9) 7-Aminoflunitrazep Not Cutoff: 10 Metabolit e of Flunitrazepam am Urine (test Detected ng/mL code = 85541-6) FlUrinerazepam Not Cutoff: 10 Dalmane Urine (test code = Detected ng/mL 72291-4) 2-Hydroxy Ethyl Not Cutoff: 10 Metabolite o f Flurazepam Flurazepam Urine Detected ng/mL (test code = 08169-3) Lorazepam Urine Not Cutoff: 10 Ativan (test code = Detected ng/mL 73687-5) Lorazepam Not Cutoff: 50 Metabolite of L orazepam Glucuronide Urine Detected ng/mL (test code = 35225-4) Midazolam Urine Not Cutoff: 10 Versed (test code = Detected ng/mL 99204-1) Alpha-Hydroxy Not Cutoff: 10 Metabolite of Midazolam Midazolam Urine Detected ng/mL (test code = 50259-2) Oxazepam Urine Not Cutoff: 10 Serax; Also a metabolite of (test code = Detected ng/mL Chlordiazepoxid e, Diazepam, 81539-3) orTemazepam. Oxazepam Not Cutoff: 50 Metabolite of O xazepam Glucuronide Urine Detected ng/mL (test code = 15447-5) Prazepam Urine Not Cutoff: 10 Centrax (test code = Detected ng/mL 49360-2) Temazepam Urine Not Cutoff: 10 Restoril; Al so a metabolite of (test code = Detected ng/mL Diazepam. 00198-4) Temazepam Not Cutoff: 50 Metabolite of T emazepam Glucuronide Urine Detected ng/mL (test code = 47582-2) Triazolam Urine Not Cutoff: 10 Halcion (test code = Detected ng/mL 38129-8) Alpha-Hydroxy Not Cutoff: 10 Metabolite of Triazolam Triazolam Urine Detected ng/mL (test code = 54288-0) Zolpidem Urine Not Cutoff: 10 Ambien (test code = Detected ng/mL 04435-9) Zolpidem Present Cutoff: 10 A Metabolite of Z olpidem Oivof-1-Fnkvcjdukp ng/mL Acid Urine (test code = 31629-8) Methamphetamine Not Cutoff: 100 Desoxyn (test code = Detected ng/mL 06182-1) Amphetamine (test Not Cutoff: 100 Dyanavel X R, Adzenys ER, code = 17708-5) Detected ng/mL Adderall, Vy vanse; Also ametabolite of methamphetamine 3,4-Methylenedioxy Not Cutoff: 100 methamphetamine Detected ng/mL (MDMA) (test code = 54039-6) 3,4-Methylenedioxy Not Cutoff: 100 -N-Ethylamphetamin Detected ng/mL e (MDEA) (test code = 13456-4) 3,4-Methylenedioxy Not Cutoff: 100 Also a me tabolite of MDMA amphetamine (MDA) Detected ng/mL and/or MDE A (test code = 36815-8) Ephedrine (test Not Cutoff: 100 code = 09058) Detected ng/mL Pseudoephedrine Present Cutoff: 100 A Sudafed (test code = ng/mL 03060) Phentermine (test Not Cutoff: 100 Adipex-P, Lomaira, Qsymia code = 19220-4) Detected ng/mL Phencyclidine Not Cutoff: 20 (PCP) (test code = Detected ng/mL 74388-6) Methylphenidate Not Cutoff: 20 Ritalin, Con certa (test code = Detected ng/mL 06371-8) Ritalinic acid Not Cutoff: 100 Metabolite of methylphenidate (test code = Detected ng/mL ) Stimulant See Test detected t he presence of Interpretation Footnote pseudoephedri ne. Suspect useof (test code = pseudoephedrine within the past 47428-0) three days. ----ADDITIONAL INFORMATION---- T his test was de veloped and its performance characteristics determined by [facility] in a manner consistent with CLIArequirement s. This test has not been cleare d or approved bythe U.S. Food and Drug Administration. Test Performed by:[facility] [place][Note 2] i[id number] [place], [place] [address]Azm Dir ronnie: Moe Guzman M.D. Ph.D.; CLIA# [id number] Patients Current NOT ---------ADDITIONAL Medications (test ANSWERED INFORMATIO N A code = 55366-5) ccuracy and completeness of declared medica tions onreports solely dependen t on information submitted bycli ent. Lab Interpretation Abnormal (test code = 55529-8) [facility] [place], [id number] 09:20:34 Test Item Value Reference Interpretation Comments Range Urine Creatinine 55.1 mg/dL (test code = 2161-8) Urine Specific 1.014 [place] (test code = 5810-7) Urine Ph (test 6.2 code = 2756-5) Urine Oxidants Negative Cutoff: 200 (test code = mg/L 10214-7) Urine Comment Normal (test code = 72076-6) U Negative Cutoff: 200 Barbiturates-Luu ng/mL (test code = 65604-3) U Cocaine Lvl-Grant Negative Cutoff: 150 This coca ine immunoassay (test code = ng/mL targets benzoyl ecgonine 35123-4) theprimary meta bolite of cocaine. U THC-Luu (test See Cutoff: 50 A RESULT: Pre sumptive code = 18843-2) Footnote ng/mL PositiveThis immunoassay targets delta-9 tetrahydrocanna [...] code Not Cutoff: 25 Tylenol 3 = 78358-9) Detected ng/mL Btamosr-9-acho-glu Not Cutoff: 100 Metabolit e of codeine curonide (test Detected ng/mL code = 66556-2) Morphine (test Not Cutoff: 25 Gayle Mary, MS Contin; Also code = 40823-9) Detected ng/mL a minor meta bolite (10%) ofcodeine and c an be seen in low concentrati ons (<2,000ng/mL) w ith poppy seed ingestion. Syqmnwbf-0-kavs-gl Not Cutoff: 100 Metabolit e of morphine ucuronide (test Detected ng/mL code = 33673-9) 6-monoacetylmorphi Not Cutoff: 25 Metabolit e of heroin ne (test code = Detected ng/mL 83235-3) Hydrocodone (test Not Cutoff: 25 Lortab, No rco, Vicodin; Also a code = 42281-4) Detected ng/mL very minor m etabolite ofcodeine and impurity (< 1%) of oxycodone. Norhydrocodone Not Cutoff: 25 Metabolite of hydrocodone (test code = Detected ng/mL 62673-7) Dihydrocodeine Not Cutoff: 25 Metabolite of hydrocodone (test code = Detected ng/mL 64968-8) Hydromorphone Not Cutoff: 25 Dilaudid, Exal go; Also a (test code = Detected ng/mL metabolite of h ydrocodone and 08633-4) aminor (<5%) me tabolite of morphine. Flhmqzggiuqhp-7-hx Not Cutoff: 100 Metabolit e of hydromorphone ta-glucuronide Detected ng/mL (test code = 68880-3) Oxycodone (test Present Cutoff: 25 A Endocet, Per cocet, Oxycontin code = 45829-1) ng/mL Noroxycodone (test Present Cutoff: 25 A Metabolit e of oxycodone code = 46768-5) ng/mL Oxymorphone (test Not Cutoff: 25 Numorphan, Opana; Also a code = 02688-4) Detected ng/mL metabolite o f oxycodone. Evvclmtojbz-1-ylcq Not Cutoff: 100 Metabolit e of oxymorphone -glucuronide (test Detected ng/mL and/or na loxone (nornaloxone) code = 51547-3) Noroxymorphone Present Cutoff: 25 A Metabolite of oxymorphone (test code = ng/mL and/or naloxone (nornaloxone) 43708-8) Fentanyl (test Not Cutoff: 2 Actiq, Durage sic, Fentora code = 96229-2) Detected ng/mL Norfentanyl (test Not Cutoff: 2 Metabolite of fentanyl code = 05732-1) Detected ng/mL Meperidine (test Not Cutoff: 25 Demerol code = 88399-3) Detected ng/mL Normeperidine Not Cutoff: 25 Metabolite of meperidine (test code = Detected ng/mL 12543-8) Naloxone (test Not Cutoff: 25 Narcan code = 04662-2) Detected ng/mL Dhzddjap-8-niri-gl Not Cutoff: 100 Metabolit e of naloxone ucuronide (test Detected ng/mL code = 43662-5) U Methadone (test Not Cutoff: 25 Dolophine code = 61287-5) Detected ng/mL EDDP (test code = Not Cutoff: 25 Metabolite of methadone 42262-2) Detected ng/mL Propoxyphene (test Not Cutoff: 25 Darvon, D arvocet code = 67263-5) Detected ng/mL Norpropoxyphene Not Cutoff: 25 Metabolite o f propoxyphene (test code = Detected ng/mL 95725-4) Tramadol (test Not Cutoff: 25 Tradol, Ultra m, Ultracet code = 74419-5) Detected ng/mL O-desmethyltramado Not Cutoff: 25 Metabolit e of tramadol l (test code = Detected ng/mL 78318-5) Tapentadol (test Not Cutoff: 25 Nucynta code = 87107-5) Detected ng/mL Ocjetvwqli-fpkf-qm Not Cutoff: 100 Metabolit e of tapentadol ucuronide (test Detected ng/mL code = 93134-6) Buprenorphine Not Cutoff: 5 Buprenex, Subo xone (test code = Detected ng/mL 19882-9) Norbuprenorphine Not Cutoff: 5 Metabolite of buprenorphine (test code = Detected ng/mL 69433-9) Norbuprenorphine Not Cutoff: 20 Metabolite of buprenorphine Glucuronide (test Detected ng/mL code = 78585-3) Benzodiazepine See Test detected the presence of Interp Urine (test Footnote alprazola m and two of code = 03987-0) itsmetabolit es (alpha-hydroxya lprazolam andalpha-hydrox yalprazolam glucuronide). S uspect use ofalprazolam wi thin the past three days. Hailey t detected the presence of zol pidem eurnne-7-ivmitv ylicacid (metabolite of zolpidem) only. Suspect use of zolpidemwithin the past four d ays. ----ADDITIONAL INFORMATION---- T his test was de veloped and its performance characteristics determined by [facility] in a manner consistent with CLIArequirement s. This test has not been cleare d or approved bythe U.S. Food and Drug Administration. Alprazolam Urine Present Cutoff: 10 A Xanax (test code = ng/mL 74106-0) Alpha-Hydroxyalpra Present Cutoff: 10 A Metabolit e of Alprazolam zolam Urine (test ng/mL code = 03258-8) Alpha-Hydroxyalpra Present Cutoff: 50 A Metabolit e of Alprazolam zolam Glucuronide ng/mL Urine (test code = 00837-1) Chlordiazepoxide Not Cutoff: 10 Librium Urine (test code = Detected ng/mL 30349-3) Colbazam Urine Not Cutoff: 10 Frisium, Onfi (test code = Detected ng/mL 34366-2) N-Desmethylclobaza Not Cutoff: 200 Metabolit e of Clobazam m Urine (test code Detected ng/mL = 37142-5) Clonazepam Urine Not Cutoff: 10 Klonopin, R ivotril (test code = Detected ng/mL 72434-6) 7-Aminoclonazepam Not Cutoff: 10 Metabolite of Clonazepam Urine (test code = Detected ng/mL 05270-7) Diazepam Urine Not Cutoff: 10 Valium (test code = Detected ng/mL 60184-5) Nordiazepam Urine Not Cutoff: 10 Metabolite of Chlordiazepoxide, (test code = Detected ng/mL Diazepam, or Pr azepam. 72011-8) Flunitrazepam Not Cutoff: 10 Rohypnol Urine (test code = Detected ng/mL 18282-8) 7-Aminoflunitrazep Not Cutoff: 10 Metabolit e of Flunitrazepam am Urine (test Detected ng/mL code = 89423-3) FlUrinerazepam Not Cutoff: 10 Dalmane Urine (test code = Detected ng/mL 43767-1) 2-Hydroxy Ethyl Not Cutoff: 10 Metabolite o f Flurazepam Flurazepam Urine Detected ng/mL (test code = 19581-2) Lorazepam Urine Not Cutoff: 10 Ativan (test code = Detected ng/mL 73331-4) Lorazepam Not Cutoff: 50 Metabolite of L orazepam Glucuronide Urine Detected ng/mL (test code = 82366-1) Midazolam Urine Not Cutoff: 10 Versed (test code = Detected ng/mL 95277-3) Alpha-Hydroxy Not Cutoff: 10 Metabolite of Midazolam Midazolam Urine Detected ng/mL (test code = 74318-4) Oxazepam Urine Not Cutoff: 10 Serax; Also a metabolite of (test code = Detected ng/mL Chlordiazepoxid e, Diazepam, 29329-0) orTemazepam. Oxazepam Not Cutoff: 50 Metabolite of O xazepam Glucuronide Urine Detected ng/mL (test code = 56287-7) Prazepam Urine Not Cutoff: 10 Centrax (test code = Detected ng/mL 38615-7) Temazepam Urine Not Cutoff: 10 Restoril; Al so a metabolite of (test code = Detected ng/mL Diazepam. 31853-3) Temazepam Not Cutoff: 50 Metabolite of T emazepam Glucuronide Urine Detected ng/mL (test code = 06944-3) Triazolam Urine Not Cutoff: 10 Halcion (test code = Detected ng/mL 77664-5) Alpha-Hydroxy Not Cutoff: 10 Metabolite of Triazolam Triazolam Urine Detected ng/mL (test code = 17574-3) Zolpidem Urine Not Cutoff: 10 Ambien (test code = Detected ng/mL 97061-9) Zolpidem Present Cutoff: 10 A Metabolite of Z olpidem Woqyy-1-Jhsjhslusr ng/mL Acid Urine (test code = 12715-2) Methamphetamine Not Cutoff: 100 Desoxyn (test code = Detected ng/mL 64423-5) Amphetamine (test Not Cutoff: 100 Dyanavel X R, Adzenys ER, code = 64463-9) Detected ng/mL Adderall, Vy vanse; Also ametabolite of methamphetamine 3,4-Methylenedioxy Not Cutoff: 100 methamphetamine Detected ng/mL (MDMA) (test code = 82700-1) 3,4-Methylenedioxy Not Cutoff: 100 -N-Ethylamphetamin Detected ng/mL e (MDEA) (test code = 22424-9) 3,4-Methylenedioxy Not Cutoff: 100 Also a me tabolite of MDMA amphetamine (MDA) Detected ng/mL and/or MDE A (test code = 06051-3) Ephedrine (test Not Cutoff: 100 code = 58179) Detected ng/mL Pseudoephedrine Present Cutoff: 100 A Sudafed (test code = ng/mL 86200) Phentermine (test Not Cutoff: 100 Adipex-P, Lomaira, Qsymia code = 54519-6) Detected ng/mL Phencyclidine Not Cutoff: 20 (PCP) (test code = Detected ng/mL 58749-7) Methylphenidate Not Cutoff: 20 Ritalin, Con certa (test code = Detected ng/mL 67942-5) Ritalinic acid Not Cutoff: 100 Metabolite of methylphenidate (test code = Detected ng/mL 49736) Stimulant See Test detected t he presence of Interpretation Footnote pseudoephedri ne. Suspect useof (test code = pseudoephedrine within the past 69700-8) three days. ----ADDITIONAL INFORMATION---- T his test was de veloped and its performance characteristics determined by [facility] in a manner consistent with CLIArequirement s. This test has not been cleare d or approved bythe U.S. Food and Drug Administration. Test [facility]formed [facility] [id number] [place], [place] [address]Syw Dir ronnie: Moe Guzman M.D. Ph.D.; CLIA# [id number] Patients Current NOT ---------ADDITIONAL Medications (test ANSWERED INFORMATIO N A code = 10220-1) ccuracy and completeness of declared medica tions onreports solely dependen t on information submitted bycli ent. Lab Interpretation Abnormal (test code = 84249-8) [facility] [place] [facility], [id number] 09:20:34 Test Item Value Reference Interpretation Comments Range Urine Creatinine 55.1 mg/dL (test code = 2161-8) Urine Specific 1.014 [place] (test code = 5810-7) Urine Ph (test 6.2 code = 2756-5) Urine Oxidants Negative Cutoff: 200 (test code = mg/L 11852-7) Urine Comment Normal (test code = 85072-0) U Negative Cutoff: 200 Barbiturates-Grant ng/mL (test code = 70288-0) U Cocaine Lvl-Grant Negative Cutoff: 150 This coca ine immunoassay (test code = ng/mL targets benzoyl ecgonine 13626-2) theprimary meta bolite of cocaine. U THC-Grant (test See Cutoff: 50 A RESULT: Pre sumptive code = 89200-5) Footnote ng/mL PositiveThis immunoassay targets delta-9 tetrahydrocanna [...] code Not Cutoff: 25 Tylenol 3 = 83739-2) Detected ng/mL Ijcycrb-3-znco-glu Not Cutoff: 100 Metabolit e of codeine curonide (test Detected ng/mL code = 84706-3) Morphine (test Not Cutoff: 25 Gayle Mary, MS Contin; Also code = 95431-0) Detected ng/mL a minor meta bolite (10%) ofcodeine and c an be seen in low concentrati ons (<2,000ng/mL) w ith poppy seed ingestion. Iakphizi-6-nrzf-gl Not Cutoff: 100 Metabolit e of morphine ucuronide (test Detected ng/mL code = 76949-8) 6-monoacetylmorphi Not Cutoff: 25 Metabolit e of heroin ne (test code = Detected ng/mL 64016-2) Hydrocodone (test Not Cutoff: 25 Lortab, No rco, Vicodin; Also a code = 79712-5) Detected ng/mL very minor m etabolite ofcodeine and impurity (< 1%) of oxycodone. Norhydrocodone Not Cutoff: 25 Metabolite of hydrocodone (test code = Detected ng/mL 38221-8) Dihydrocodeine Not Cutoff: 25 Metabolite of hydrocodone (test code = Detected ng/mL 32816-7) Hydromorphone Not Cutoff: 25 Dilaudid, Exal go; Also a (test code = Detected ng/mL metabolite of h ydrocodone and 74305-9) aminor (<5%) me tabolite of morphine. Qveqhqdtgeynz-3-wo Not Cutoff: 100 Metabolit e of hydromorphone ta-glucuronide Detected ng/mL (test code = 13516-4) Oxycodone (test Present Cutoff: 25 A Endocet, Per cocet, Oxycontin code = 49997-0) ng/mL Noroxycodone (test Present Cutoff: 25 A Metabolit e of oxycodone code = 45977-9) ng/mL Oxymorphone (test Not Cutoff: 25 Numorphan, Opana; Also a code = 27187-0) Detected ng/mL metabolite o f oxycodone. Rmvgeltyywj-5-chhc Not Cutoff: 100 Metabolit e of oxymorphone -glucuronide (test Detected ng/mL and/or na loxone (nornaloxone) code = 65782-7) Noroxymorphone Present Cutoff: 25 A Metabolite of oxymorphone (test code = ng/mL and/or naloxone (nornaloxone) 33714-1) Fentanyl (test Not Cutoff: 2 Actiq, Durage sic, Fentora code = 56459-7) Detected ng/mL Norfentanyl (test Not Cutoff: 2 Metabolite of fentanyl code = 20803-2) Detected ng/mL Meperidine (test Not Cutoff: 25 Demerol code = 31840-8) Detected ng/mL Normeperidine Not Cutoff: 25 Metabolite of meperidine (test code = Detected ng/mL 59594-2) Naloxone (test Not Cutoff: 25 Narcan code = 45611-5) Detected ng/mL Ekmsjgqt-6-xeur-gl Not Cutoff: 100 Metabolit e of naloxone ucuronide (test Detected ng/mL code = 11653-9) U Methadone (test Not Cutoff: 25 Dolophine code = 89816-5) Detected ng/mL EDDP (test code = Not Cutoff: 25 Metabolite of methadone 21373-6) Detected ng/mL Propoxyphene (test Not Cutoff: 25 Darvon, D arvocet code = 49872-8) Detected ng/mL Norpropoxyphene Not Cutoff: 25 Metabolite o f propoxyphene (test code = Detected ng/mL 69151-0) Tramadol (test Not Cutoff: 25 Tradol, Ultra m, Ultracet code = 33031-4) Detected ng/mL O-desmethyltramado Not Cutoff: 25 Metabolit e of tramadol l (test code = Detected ng/mL 94947-9) Tapentadol (test Not Cutoff: 25 Nucynta code = 70748-5) Detected ng/mL Xndloxeuyo-ebgh-fp Not Cutoff: 100 Metabolit e of tapentadol ucuronide (test Detected ng/mL code = 54482-7) Buprenorphine Not Cutoff: 5 Buprenex, Subo xone (test code = Detected ng/mL 87248-3) Norbuprenorphine Not Cutoff: 5 Metabolite of buprenorphine (test code = Detected ng/mL 40240-5) Norbuprenorphine Not Cutoff: 20 Metabolite of buprenorphine Glucuronide (test Detected ng/mL code = 98008-0) Benzodiazepine See Test detected the presence of Interp Urine (test Footnote alprazola m and two of code = 48459-7) itsmetabolit es (alpha-hydroxya lprazolam andalpha-hydrox yalprazolam glucuronide). S uspect use ofalprazolam wi thin the past three days. Hailey t detected the presence of zol pidem ldhfbb-7-wkdouq ylicacid (metabolite of zolpidem) only. Suspect use of zolpidemwithin the past four d ays. ----ADDITIONAL INFORMATION---- T his test was de veloped and its performance characteristics determined by [facility] in a manner consistent with CLIArequirement s. This test has not been cleare d or approved bythe U.S. Food and Drug Administration. Alprazolam Urine Present Cutoff: 10 A Xanax (test code = ng/mL 93097-0) Alpha-Hydroxyalpra Present Cutoff: 10 A Metabolit e of Alprazolam zolam Urine (test ng/mL code = 49968-4) Alpha-Hydroxyalpra Present Cutoff: 50 A Metabolit e of Alprazolam zolam Glucuronide ng/mL Urine (test code = 50319-2) Chlordiazepoxide Not Cutoff: 10 Librium Urine (test code = Detected ng/mL 04433-5) Colbazam Urine Not Cutoff: 10 Frisium, Onfi (test code = Detected ng/mL 81049-8) N-Desmethylclobaza Not Cutoff: 200 Metabolit e of Clobazam m Urine (test code Detected ng/mL = 13111-0) Clonazepam Urine Not Cutoff: 10 Klonopin, R ivotril (test code = Detected ng/mL 44462-7) 7-Aminoclonazepam Not Cutoff: 10 Metabolite of Clonazepam Urine (test code = Detected ng/mL 05725-0) Diazepam Urine Not Cutoff: 10 Valium (test code = Detected ng/mL 81681-8) Nordiazepam Urine Not Cutoff: 10 Metabolite of Chlordiazepoxide, (test code = Detected ng/mL Diazepam, or Pr azepam. 25075-9) Flunitrazepam Not Cutoff: 10 Rohypnol Urine (test code = Detected ng/mL 25175-7) 7-Aminoflunitrazep Not Cutoff: 10 Metabolit e of Flunitrazepam am Urine (test Detected ng/mL code = 81806-9) FlUrinerazepam Not Cutoff: 10 Dalmane Urine (test code = Detected ng/mL 20928-1) 2-Hydroxy Ethyl Not Cutoff: 10 Metabolite o f Flurazepam Flurazepam Urine Detected ng/mL (test code = 35371-1) Lorazepam Urine Not Cutoff: 10 Ativan (test code = Detected ng/mL 61637-9) Lorazepam Not Cutoff: 50 Metabolite of L orazepam Glucuronide Urine Detected ng/mL (test code = 55620-6) Midazolam Urine Not Cutoff: 10 Versed (test code = Detected ng/mL 32285-3) Alpha-Hydroxy Not Cutoff: 10 Metabolite of Midazolam Midazolam Urine Detected ng/mL (test code = 22080-8) Oxazepam Urine Not Cutoff: 10 Serax; Also a metabolite of (test code = Detected ng/mL Chlordiazepoxid e, Diazepam, 41260-7) orTemazepam. Oxazepam Not Cutoff: 50 Metabolite of O xazepam Glucuronide Urine Detected ng/mL (test code = 37761-0) Prazepam Urine Not Cutoff: 10 Centrax (test code = Detected ng/mL ) Temazepam Urine Not Cutoff: 10 Restoril; Al so a metabolite of (test code = Detected ng/mL Diazepam. 63184-0) Temazepam Not Cutoff: 50 Metabolite of T emazepam Glucuronide Urine Detected ng/mL (test code = 04889-4) Triazolam Urine Not Cutoff: 10 Halcion (test code = Detected ng/mL ) Alpha-Hydroxy Not Cutoff: 10 Metabolite of Triazolam Triazolam Urine Detected ng/mL (test code = 19728-2) Zolpidem Urine Not Cutoff: 10 Ambien (test code = Detected ng/mL 87848-6) Zolpidem Present Cutoff: 10 A Metabolite of Z olpidem Argno-5-Yugypzxwab ng/mL Acid Urine (test code = 04491-4) Methamphetamine Not Cutoff: 100 Desoxyn (test code = Detected ng/mL 45118-8) Amphetamine (test Not Cutoff: 100 Dyanavel X R, Adzenys ER, code = 16374-4) Detected ng/mL Adderall, Vy vanse; Also ametabolite of methamphetamine 3,4-Methylenedioxy Not Cutoff: 100 methamphetamine Detected ng/mL (MDMA) (test code = 03681-0) 3,4-Methylenedioxy Not Cutoff: 100 -N-Ethylamphetamin Detected ng/mL e (MDEA) (test code = 95095-4) 3,4-Methylenedioxy Not Cutoff: 100 Also a me tabolite of MDMA amphetamine (MDA) Detected ng/mL and/or MDE A (test code = 75313-4) Ephedrine (test Not Cutoff: 100 code = 16227) Detected ng/mL Pseudoephedrine Present Cutoff: 100 A Sudafed (test code = ng/mL 08576) Phentermine (test Not Cutoff: 100 Adipex-P, Lomaira, Qsymia code = 64672-4) Detected ng/mL Phencyclidine Not Cutoff: 20 (PCP) (test code = Detected ng/mL 44488-6) Methylphenidate Not Cutoff: 20 Ritalin, Con certa (test code = Detected ng/mL 43915-0) Ritalinic acid Not Cutoff: 100 Metabolite of methylphenidate (test code = Detected ng/mL ) Stimulant See Test detected t he presence of Interpretation Footnote pseudoephedri ne. Suspect useof (test code = pseudoephedrine within the past 77677-1) three days. ----ADDITIONAL INFORMATION---- T his test was de veloped and its performance characteristics determined by [facility] in a manner consistent with CLIArequirement s. This test has not been cleare d or approved bythe U.S. Food and Drug Administration. Test Performed by:[facility] [place][Note 2] [id number] [place], [place] [address]Nsn Dir ronnie: Moe Guzman M.D. Ph.D.; CLIA# [id number] Patients Current NOT ---------ADDITIONAL Medications (test ANSWERED INFORMATIO N A code = 67583-2) ccuracy and completeness of declared medica tions onreports solely dependen t on information submitted bymarco a umaña. Lab Interpretation Abnormal (test code = 67977-2) [facility] [place] [facility], [id number] 09:20:34 Test Item Value Reference Interpretation Comments Range Urine Creatinine 55.1 mg/dL (test code = 2161-8) Urine Specific 1.014 [place] (test code = 5810-7) Urine Ph (test 6.2 code = 2756-5) Urine Oxidants Negative Cutoff: 200 (test code = mg/L 89909-0) Urine Comment Normal (test code = 94739-6) U Negative Cutoff: 200 Barbiturates-Luu ng/mL (test code = 95387-5) U Cocaine Lvl-Grant Negative Cutoff: 150 This coca ine immunoassay (test code = ng/mL targets benzoyl ecgonine 90577-0) theprimary meta bolite of cocaine. U THC-Grant (test See Cutoff: 50 A RESULT: Pre sumptive code = 92823-5) Footnote ng/mL PositiveThis immunoassay targets delta-9 tetrahydrocanna [...] code Not Cutoff: 25 Tylenol 3 = 01290-6) Detected ng/mL Szvajjh-6-uzvk-glu Not Cutoff: 100 Metabolit e of codeine curonide (test Detected ng/mL code = 50680-9) Morphine (test Not Cutoff: 25 Avinza, Gayle n, MS Contin; Also code = 66356-2) Detected ng/mL a minor meta bolite (10%) ofcodeine and c an be seen in low concentrati ons (<2,000ng/mL) w ith poppy seed ingestion. Eynmcwfp-5-quzo-gl Not Cutoff: 100 Metabolit e of morphine ucuronide (test Detected ng/mL code = 39639-7) 6-monoacetylmorphi Not Cutoff: 25 Metabolit e of heroin ne (test code = Detected ng/mL 92341-4) Hydrocodone (test Not Cutoff: 25 Lortab, No rco, Vicodin; Also a code = 55303-8) Detected ng/mL very minor m etabolite ofcodeine and impurity (< 1%) of oxycodone. Norhydrocodone Not Cutoff: 25 Metabolite of hydrocodone (test code = Detected ng/mL 71534-9) Dihydrocodeine Not Cutoff: 25 Metabolite of hydrocodone (test code = Detected ng/mL 21716-6) Hydromorphone Not Cutoff: 25 Dilaudid, Exal go; Also a (test code = Detected ng/mL metabolite of h ydrocodone and 95665-9) aminor (<5%) me tabolite of morphine. Taaydgpooxvjq-9-it Not Cutoff: 100 Metabolit e of hydromorphone ta-glucuronide Detected ng/mL (test code = 43336-1) Oxycodone (test Present Cutoff: 25 A Endocet, Per cocet, Oxycontin code = 07249-6) ng/mL Noroxycodone (test Present Cutoff: 25 A Metabolit e of oxycodone code = 58325-8) ng/mL Oxymorphone (test Not Cutoff: 25 Numorphan, Opana; Also a code = 52970-6) Detected ng/mL metabolite o f oxycodone. Nzrppnyiicn-9-uxcl Not Cutoff: 100 Metabolit e of oxymorphone -glucuronide (test Detected ng/mL and/or na loxone (nornaloxone) code = 90271-4) Noroxymorphone Present Cutoff: 25 A Metabolite of oxymorphone (test code = ng/mL and/or naloxone (nornaloxone) 95449-8) Fentanyl (test Not Cutoff: 2 Actiq, Durage sic, Fentora code = 00819-7) Detected ng/mL Norfentanyl (test Not Cutoff: 2 Metabolite of fentanyl code = 18730-6) Detected ng/mL Meperidine (test Not Cutoff: 25 Demerol code = 38081-3) Detected ng/mL Normeperidine Not Cutoff: 25 Metabolite of meperidine (test code = Detected ng/mL 07908-9) Naloxone (test Not Cutoff: 25 Narcan code = 84705-5) Detected ng/mL Wzemgzwq-4-vahi-gl Not Cutoff: 100 Metabolit e of naloxone ucuronide (test Detected ng/mL code = 58737-9) U Methadone (test Not Cutoff: 25 Dolophine code = 38108-5) Detected ng/mL EDDP (test code = Not Cutoff: 25 Metabolite of methadone 02224-3) Detected ng/mL Propoxyphene (test Not Cutoff: 25 Darvon, D arvocet code = 92069-7) Detected ng/mL Norpropoxyphene Not Cutoff: 25 Metabolite o f propoxyphene (test code = Detected ng/mL 69116-6) Tramadol (test Not Cutoff: 25 Tradol, Ultra m, Ultracet code = 42491-0) Detected ng/mL O-desmethyltramado Not Cutoff: 25 Metabolit e of tramadol l (test code = Detected ng/mL 99605-9) Tapentadol (test Not Cutoff: 25 Nucynta code = 42722-8) Detected ng/mL Aszkaiurzz-irev-fu Not Cutoff: 100 Metabolit e of tapentadol ucuronide (test Detected ng/mL code = 71824-2) Buprenorphine Not Cutoff: 5 Buprenex, Subo xone (test code = Detected ng/mL 23499-7) Norbuprenorphine Not Cutoff: 5 Metabolite of buprenorphine (test code = Detected ng/mL 59997-6) Norbuprenorphine Not Cutoff: 20 Metabolite of buprenorphine Glucuronide (test Detected ng/mL code = 31258-1) Benzodiazepine See Test detected the presence of Interp Urine (test Footnote alprazola m and two of code = 30903-7) itsmetabolit es (alpha-hydroxya lprazolam andalpha-hydrox yalprazolam glucuronide). S uspect use ofalprazolam wi thin the past three days. Hailey t detected the presence of zol pidem gobpgs-6-pvyoma ylicacid (metabolite of zolpidem) only. Suspect use of zolpidemwithin the past four d ays. ----ADDITIONAL INFORMATION---- T his test was de veloped and its performance characteristics determined by [facility] in a manner consistent with CLIArequirement s. This test has not been cleare d or approved bythe U.S. Food and Drug Administration. Alprazolam Urine Present Cutoff: 10 A Xanax (test code = ng/mL 25468-6) Alpha-Hydroxyalpra Present Cutoff: 10 A Metabolit e of Alprazolam zolam Urine (test ng/mL code = 24531-1) Alpha-Hydroxyalpra Present Cutoff: 50 A Metabolit e of Alprazolam zolam Glucuronide ng/mL Urine (test code = 21513-5) Chlordiazepoxide Not Cutoff: 10 Librium Urine (test code = Detected ng/mL 35278-7) Colbazam Urine Not Cutoff: 10 Frisium, Onfi (test code = Detected ng/mL 98871-8) N-Desmethylclobaza Not Cutoff: 200 Metabolit e of Clobazam m Urine (test code Detected ng/mL = 29308-8) Clonazepam Urine Not Cutoff: 10 Klonopin, R ivotril (test code = Detected ng/mL 53921-2) 7-Aminoclonazepam Not Cutoff: 10 Metabolite of Clonazepam Urine (test code = Detected ng/mL 94063-1) Diazepam Urine Not Cutoff: 10 Valium (test code = Detected ng/mL 11633-7) Nordiazepam Urine Not Cutoff: 10 Metabolite of Chlordiazepoxide, (test code = Detected ng/mL Diazepam, or Pr azepam. 57002-0) Flunitrazepam Not Cutoff: 10 Rohypnol Urine (test code = Detected ng/mL 96000-7) 7-Aminoflunitrazep Not Cutoff: 10 Metabolit e of Flunitrazepam am Urine (test Detected ng/mL code = 00584-5) FlUrinerazepam Not Cutoff: 10 Dalmane Urine (test code = Detected ng/mL 50471-4) 2-Hydroxy Ethyl Not Cutoff: 10 Metabolite o f Flurazepam Flurazepam Urine Detected ng/mL (test code = 80143-8) Lorazepam Urine Not Cutoff: 10 Ativan (test code = Detected ng/mL 84546-7) Lorazepam Not Cutoff: 50 Metabolite of L orazepam Glucuronide Urine Detected ng/mL (test code = 37769-1) Midazolam Urine Not Cutoff: 10 Versed (test code = Detected ng/mL 91435-9) Alpha-Hydroxy Not Cutoff: 10 Metabolite of Midazolam Midazolam Urine Detected ng/mL (test code = 73075-5) Oxazepam Urine Not Cutoff: 10 Serax; Also a metabolite of (test code = Detected ng/mL Chlordiazepoxid e, Diazepam, 49080-9) orTemazepam. Oxazepam Not Cutoff: 50 Metabolite of O xazepam Glucuronide Urine Detected ng/mL (test code = 43346-4) Prazepam Urine Not Cutoff: 10 Centrax (test code = Detected ng/mL 48122-8) Temazepam Urine Not Cutoff: 10 Restoril; Al so a metabolite of (test code = Detected ng/mL Diazepam. 48352-7) Temazepam Not Cutoff: 50 Metabolite of T emazepam Glucuronide Urine Detected ng/mL (test code = 61303-5) Triazolam Urine Not Cutoff: 10 Halcion (test code = Detected ng/mL ) Alpha-Hydroxy Not Cutoff: 10 Metabolite of Triazolam Triazolam Urine Detected ng/mL (test code = 23917-2) Zolpidem Urine Not Cutoff: 10 Ambien (test code = Detected ng/mL 52222-7) Zolpidem Present Cutoff: 10 A Metabolite of Z olpidem Zqzbn-5-Ychsiwdhjv ng/mL Acid Urine (test code = 40344-8) Methamphetamine Not Cutoff: 100 Desoxyn (test code = Detected ng/mL 11786-4) Amphetamine (test Not Cutoff: 100 Dyanavel X R, Adzenys ER, code = 98989-4) Detected ng/mL Adderall, Vy vanse; Also ametabolite of methamphetamine 3,4-Methylenedioxy Not Cutoff: 100 methamphetamine Detected ng/mL (MDMA) (test code = 60797-0) 3,4-Methylenedioxy Not Cutoff: 100 -N-Ethylamphetamin Detected ng/mL e (MDEA) (test code = 27387-3) 3,4-Methylenedioxy Not Cutoff: 100 Also a me tabolite of MDMA amphetamine (MDA) Detected ng/mL and/or MDE A (test code = 00473-8) Ephedrine (test Not Cutoff: 100 code = 07982) Detected ng/mL Pseudoephedrine Present Cutoff: 100 A Sudafed (test code = ng/mL 75462) Phentermine (test Not Cutoff: 100 Adipex-PStacey Qsymia code = 40604-1) Detected ng/mL Phencyclidine Not Cutoff: 20 (PCP) (test code = Detected ng/mL ) Methylphenidate Not Cutoff: 20 Ritalin, Con certa (test code = Detected ng/mL 69188-9) Ritalinic acid Not Cutoff: 100 Metabolite of methylphenidate (test code = Detected ng/mL 16404) Stimulant See Test detected t he presence of Interpretation Footnote pseudoephedri ne. Suspect useof (test code = pseudoephedrine within the past 93529-9) three days. ----ADDITIONAL INFORMATION---- T his test was de veloped and its performance characteristics determined by [facility] in a manner consistent with CLIArequirement s. This test has not been cleare d or approved bythe U.S. Food and Drug Administration. Test Performed by:[facility] [id number] [place], [place] [address]Cfh Dir ronnie: Moe Guzman M.D. Ph.D.; CLIA# [id number] Patients Current NOT ---------ADDITIONAL Medications (test ANSWERED INFORMATIO N A code = 22173-6) ccuracy and completeness of declared medica tions onreports solely dependen t on information submitted bymarco a umaña. Lab Interpretation Abnormal (test code = 61454-0) [facility] [place], [id number] 09:20:34 Test Item Value Reference Interpretation Comments Range Urine Creatinine 55.1 mg/dL (test code = 2161-8) Urine Specific 1.014 [place] (test code = 5810-7) Urine Ph (test 6.2 code = 2756-5) Urine Oxidants Negative Cutoff: 200 (test code = mg/L 53013-4) Urine Comment Normal (test code = 72942-6) U Negative Cutoff: 200 Barbiturates-Grant ng/mL (test code = 80930-1) U Cocaine Lvl-Grant Negative Cutoff: 150 This coca ine immunoassay (test code = ng/mL targets benzoyl ecgonine 44277-3) theprimary meta bolite of cocaine. U THC-Grant (test See Cutoff: 50 A RESULT: Pre sumptive code = 96311-4) Footnote ng/mL PositiveThis immunoassay targets delta-9 tetrahydrocanna [...] code Not Cutoff: 25 Tylenol 3 = 80105-9) Detected ng/mL Fjknakr-0-xyzd-glu Not Cutoff: 100 Metabolit e of codeine curonide (test Detected ng/mL code = 39369-6) Morphine (test Not Cutoff: 25 Gayle Mary n, MS Contin; Also code = 39759-8) Detected ng/mL a minor meta bolite (10%) ofcodeine and c an be seen in low concentrati ons (<2,000ng/mL) w ith poppy seed ingestion. Ipefuanq-4-rwfl-gl Not Cutoff: 100 Metabolit e of morphine ucuronide (test Detected ng/mL code = 90068-9) 6-monoacetylmorphi Not Cutoff: 25 Metabolit e of heroin ne (test code = Detected ng/mL 34125-6) Hydrocodone (test Not Cutoff: 25 Lortab, No rco, Vicodin; Also a code = 57030-9) Detected ng/mL very minor m etabolite ofcodeine and impurity (< 1%) of oxycodone. Norhydrocodone Not Cutoff: 25 Metabolite of hydrocodone (test code = Detected ng/mL 51097-4) Dihydrocodeine Not Cutoff: 25 Metabolite of hydrocodone (test code = Detected ng/mL 43826-5) Hydromorphone Not Cutoff: 25 Dilaudid, Exal go; Also a (test code = Detected ng/mL metabolite of h ydrocodone and 68532-5) aminor (<5%) me tabolite of morphine. Oxyczqsyuxuto-5-yk Not Cutoff: 100 Metabolit e of hydromorphone ta-glucuronide Detected ng/mL (test code = 30071-7) Oxycodone (test Present Cutoff: 25 A Endocet, Per cocet, Oxycontin code = 37152-8) ng/mL Noroxycodone (test Present Cutoff: 25 A Metabolit e of oxycodone code = 42483-9) ng/mL Oxymorphone (test Not Cutoff: 25 Numorphan, Opana; Also a code = 06130-5) Detected ng/mL metabolite o f oxycodone. Zturgvyhyic-1-idqr Not Cutoff: 100 Metabolit e of oxymorphone -glucuronide (test Detected ng/mL and/or na loxone (nornaloxone) code = 05904-7) Noroxymorphone Present Cutoff: 25 A Metabolite of oxymorphone (test code = ng/mL and/or naloxone (nornaloxone) 49094-3) Fentanyl (test Not Cutoff: 2 Actiq, Durage sic, Fentora code = 64230-5) Detected ng/mL Norfentanyl (test Not Cutoff: 2 Metabolite of fentanyl code = 13602-4) Detected ng/mL Meperidine (test Not Cutoff: 25 Demerol code = 28254-8) Detected ng/mL Normeperidine Not Cutoff: 25 Metabolite of meperidine (test code = Detected ng/mL 50212-3) Naloxone (test Not Cutoff: 25 Narcan code = 47915-5) Detected ng/mL Flqknqhi-1-asag-gl Not Cutoff: 100 Metabolit e of naloxone ucuronide (test Detected ng/mL code = 59380-9) U Methadone (test Not Cutoff: 25 Dolophine code = 24007-5) Detected ng/mL EDDP (test code = Not Cutoff: 25 Metabolite of methadone 19331-2) Detected ng/mL Propoxyphene (test Not Cutoff: 25 Darvon, D arvocet code = 00868-7) Detected ng/mL Norpropoxyphene Not Cutoff: 25 Metabolite o f propoxyphene (test code = Detected ng/mL 30974-4) Tramadol (test Not Cutoff: 25 Tradol, Ultra m, Ultracet code = 32509-7) Detected ng/mL O-desmethyltramado Not Cutoff: 25 Metabolit e of tramadol l (test code = Detected ng/mL 71895-2) Tapentadol (test Not Cutoff: 25 Nucynta code = 84149-7) Detected ng/mL Ocxgwszvac-ffcx-wj Not Cutoff: 100 Metabolit e of tapentadol ucuronide (test Detected ng/mL code = 82035-8) Buprenorphine Not Cutoff: 5 Buprenex, Subo xone (test code = Detected ng/mL 67923-7) Norbuprenorphine Not Cutoff: 5 Metabolite of buprenorphine (test code = Detected ng/mL 57231-5) Norbuprenorphine Not Cutoff: 20 Metabolite of buprenorphine Glucuronide (test Detected ng/mL code = 07838-4) Benzodiazepine See Test detected the presence of Interp Urine (test Footnote alprazola m and two of code = 92411-0) itsmetabolit es (alpha-hydroxya lprazolam andalpha-hydrox yalprazolam glucuronide). S uspect use ofalprazolam wi thin the past three days. Hailey t detected the presence of zol pidem rrtcin-6-tjwksu ylicacid (metabolite of zolpidem) only. Suspect use of zolpidemwithin the past four d ays. ----ADDITIONAL INFORMATION---- T his test was de veloped and its performance characteristics determined by [facility] in a manner consistent with CLIArequirement s. This test has not been cleare d or approved bythe U.S. Food and Drug Administration. Alprazolam Urine Present Cutoff: 10 A Xanax (test code = ng/mL 97276-6) Alpha-Hydroxyalpra Present Cutoff: 10 A Metabolit e of Alprazolam zolam Urine (test ng/mL code = 58843-2) Alpha-Hydroxyalpra Present Cutoff: 50 A Metabolit e of Alprazolam zolam Glucuronide ng/mL Urine (test code = 11698-5) Chlordiazepoxide Not Cutoff: 10 Librium Urine (test code = Detected ng/mL 87462-7) Colbazam Urine Not Cutoff: 10 Frisium, Onfi (test code = Detected ng/mL 92609-1) N-Desmethylclobaza Not Cutoff: 200 Metabolit e of Clobazam m Urine (test code Detected ng/mL = 22422-3) Clonazepam Urine Not Cutoff: 10 Klonopin, R ivotril (test code = Detected ng/mL 42477-2) 7-Aminoclonazepam Not Cutoff: 10 Metabolite of Clonazepam Urine (test code = Detected ng/mL 99143-2) Diazepam Urine Not Cutoff: 10 Valium (test code = Detected ng/mL 63369-4) Nordiazepam Urine Not Cutoff: 10 Metabolite of Chlordiazepoxide, (test code = Detected ng/mL Diazepam, or Pr azepam. 54103-5) Flunitrazepam Not Cutoff: 10 Rohypnol Urine (test code = Detected ng/mL 02704-4) 7-Aminoflunitrazep Not Cutoff: 10 Metabolit e of Flunitrazepam am Urine (test Detected ng/mL code = 00726-4) FlUrinerazepam Not Cutoff: 10 Dalmane Urine (test code = Detected ng/mL 82873-1) 2-Hydroxy Ethyl Not Cutoff: 10 Metabolite o f Flurazepam Flurazepam Urine Detected ng/mL (test code = 13998-8) Lorazepam Urine Not Cutoff: 10 Ativan (test code = Detected ng/mL 71812-6) Lorazepam Not Cutoff: 50 Metabolite of L orazepam Glucuronide Urine Detected ng/mL (test code = 07582-1) Midazolam Urine Not Cutoff: 10 Versed (test code = Detected ng/mL 26137-0) Alpha-Hydroxy Not Cutoff: 10 Metabolite of Midazolam Midazolam Urine Detected ng/mL (test code = 71403-9) Oxazepam Urine Not Cutoff: 10 Serax; Also a metabolite of (test code = Detected ng/mL Chlordiazepoxid e, Diazepam, 82608-2) orTemazepam. Oxazepam Not Cutoff: 50 Metabolite of O xazepam Glucuronide Urine Detected ng/mL (test code = 68680-9) Prazepam Urine Not Cutoff: 10 Centrax (test code = Detected ng/mL 90258-8) Temazepam Urine Not Cutoff: 10 Restoril; Al so a metabolite of (test code = Detected ng/mL Diazepam. 88277-7) Temazepam Not Cutoff: 50 Metabolite of T emazepam Glucuronide Urine Detected ng/mL (test code = 88050-8) Triazolam Urine Not Cutoff: 10 Halcion (test code = Detected ng/mL 53985-6) Alpha-Hydroxy Not Cutoff: 10 Metabolite of Triazolam Triazolam Urine Detected ng/mL (test code = 70038-4) Zolpidem Urine Not Cutoff: 10 Ambien (test code = Detected ng/mL 08561-5) Zolpidem Present Cutoff: 10 A Metabolite of Z olpidem Tkprj-6-Xuzhqisubn ng/mL Acid Urine (test code = 88305-6) Methamphetamine Not Cutoff: 100 Desoxyn (test code = Detected ng/mL 05421-4) Amphetamine (test Not Cutoff: 100 Dyanavel X R, Adzenys ER, code = 58854-6) Detected ng/mL Adderall, Vy vanse; Also ametabolite of methamphetamine 3,4-Methylenedioxy Not Cutoff: 100 methamphetamine Detected ng/mL (MDMA) (test code = 64195-9) 3,4-Methylenedioxy Not Cutoff: 100 -N-Ethylamphetamin Detected ng/mL e (MDEA) (test code = 17850-8) 3,4-Methylenedioxy Not Cutoff: 100 Also a me tabolite of MDMA amphetamine (MDA) Detected ng/mL and/or MDE A (test code = 54856-8) Ephedrine (test Not Cutoff: 100 code = 90443) Detected ng/mL Pseudoephedrine Present Cutoff: 100 A Sudafed (test code = ng/mL 66610) Phentermine (test Not Cutoff: 100 Adipex-P, Heathermaira, Qsymia code = 81808-3) Detected ng/mL Phencyclidine Not Cutoff: 20 (PCP) (test code = Detected ng/mL 52861-6) Methylphenidate Not Cutoff: 20 Ritalin, Con certa (test code = Detected ng/mL 29921-1) Ritalinic acid Not Cutoff: 100 Metabolite of methylphenidate (test code = Detected ng/mL 70238) Stimulant See Test detected t he presence of Interpretation Footnote pseudoephedri ne. Suspect useof (test code = pseudoephedrine within the past 74413-8) three days. ----ADDITIONAL INFORMATION---- T his test was de veloped and its performance characteristics determined by [facility] in a manner consistent with CLJasminequirement s. This test has not been cleare d or approved bythe U.S. Food and Drug Administration. Test Performed by:[facility] [id number] [place], [place] [address]Ptr Dir ronnie: Moe Guzman M.D. Ph.D.; CLIA# [id number] Patients Current NOT ---------ADDITIONAL Medications (test ANSWERED INFORMATIO N A code = 45518-0) ccuracy and completeness of declared medica tions onreports solely dependen t on information submitted bycli ent. Lab Interpretation Abnormal (test code = 29214-9) [facility] Urine Drug [id number] 18:30:48 Test Item Value Reference Range Interpretation Comments POC U Amp (test code Negative Negative Drug Ab use Cutoff = 16505-7) Concentration: Cutoff: 1000 ng /mL POC U Barbit (test Negative Negative Drug Abus e Cutoff code = 32833-2) Concentratio n: 300 ng/mL POC U Benzo (test Positive Negative A Drug Abuse Cutoff code = 21211-5) Concentratio n: Cutoff: 300 ng/ mL POC U Cocaine (test Negative Negative Drug Abu se Cutoff code = 63864-4) Concentratio n: Cutoff: 300 ng/ mL POC U THC (test code Positive Negative A Drug Ab use Cutoff = 9) Concentration: Cutoff: 50 ng/m L POC U Methd (test Negative Negative Drug Abuse Cutoff code = 6701) Concentration: Cutoff: 300 ng/ mL POC U Mampht (test Negative Negative Drug Abus e Cutoff code = 19302-9) Concentratio n: Cutoff: 1000 ng /mL POC U Opiate (test Negative Negative Drug Abus e Cutoff code = 54878-8) Concentratio n: Cutoff: 2000 ng /mL POC U Oxycod (test Positive Negative A Drug Abus e Cutoff code = 76616-9) Concentratio n: Cutoff: 100 ng/ mL Due to the assa y cross reactivit y between Oxycodo ne and Opiates, an d lower sensitivi ty compared to GC- MS method, the hailey t results may be falsely positiv e or falsely negative. Confirmation wi th concurrent GC-M S results is recommended. POC U PCP (test code Negative Negative Drug Ab use Cutoff = 62814-1) Concentration: Cutoff: 25 ng/m L POC U TCA (test code Negative Negative Drug Ab use Cutoff = 40173-0) Concentration: Cutoff: 1000 ng /mL POC U PPX (test code Negative Negative Drug Ab use Cutoff = 41641-4) Concentration: Cutoff: 300 ng/ mL Method description: [...] testing. Lab Interpretation Abnormal (test code = 08407-2) [facility] Urine Drug [id number] 18:30:48 Test Item Value Reference Range Interpretation Comments POC U Amp (test code Negative Negative Drug Ab use Cutoff = 80693-4) Concentration: Cutoff: 1000 ng /mL POC U Barbit (test Negative Negative Drug Abus e Cutoff code = 59381-2) Concentratio n: 300 ng/mL POC U Benzo (test Positive Negative A Drug Abuse Cutoff code = 58016-4) Concentratio n: Cutoff: 300 ng/ mL POC U Cocaine (test Negative Negative Drug Abu se Cutoff code = 93650-8) Concentratio n: Cutoff: 300 ng/ mL POC U THC (test code Positive Negative A Drug Ab use Cutoff = 6709) Concentration: Cutoff: 50 ng/m L POC U Methd (test Negative Negative Drug Abuse Cutoff code = 6701) Concentration: Cutoff: 300 ng/ mL POC U Mampht (test Negative Negative Drug Abus e Cutoff code = 95217-6) Concentratio n: Cutoff: 1000 ng /mL POC U Opiate (test Negative Negative Drug Abus e Cutoff code = 69951-4) Concentratio n: Cutoff: 2000 ng /mL POC U Oxycod (test Positive Negative A Drug Abus e Cutoff code = 69289-8) Concentratio n: Cutoff: 100 ng/ mL Due to the assa y cross reactivit y between Oxycodo ne and Opiates, an d lower sensitivi ty compared to GC- MS method, the hailey t results may be falsely positiv e or falsely negative. Confirmation wi th concurrent GC-M S results is recommended. POC U PCP (test code Negative Negative Drug Ab use Cutoff = 47157-2) Concentration: Cutoff: 25 ng/m L POC U TCA (test code Negative Negative Drug Ab use Cutoff = 44180-1) Concentration: Cutoff: 1000 ng /mL POC U PPX (test code Negative Negative Drug Ab use Cutoff = 94623-5) Concentration: Cutoff: 300 ng/ mL Method description: [...] testing. Lab Interpretation Abnormal (test code = 39623-1) [facility] Urine Drug [id number] 18:30:48 Test Item Value Reference Range Interpretation Comments POC U Amp (test code Negative Negative Drug Ab use Cutoff = 30957-8) Concentration: Cutoff: 1000 ng /mL POC U Barbit (test Negative Negative Drug Abus e Cutoff code = 51227-3) Concentratio n: 300 ng/mL POC U Benzo (test Positive Negative A Drug Abuse Cutoff code = 00962-5) Concentratio n: Cutoff: 300 ng/ mL POC U Cocaine (test Negative Negative Drug Abu se Cutoff code = 97162-6) Concentratio n: Cutoff: 300 ng/ mL POC U THC (test code Positive Negative A Drug Ab use Cutoff = 6709) Concentration: Cutoff: 50 ng/m L POC U Methd (test Negative Negative Drug Abuse Cutoff code = 6701) Concentration: Cutoff: 300 ng/ mL POC U Mampht (test Negative Negative Drug Abus e Cutoff code = 21130-8) Concentratio n: Cutoff: 1000 ng /mL POC U Opiate (test Negative Negative Drug Abus e Cutoff code = 67568-1) Concentratio n: Cutoff: 2000 ng /mL POC U Oxycod (test Positive Negative A Drug Abus e Cutoff code = 47153-1) Concentratio n: Cutoff: 100 ng/ mL Due to the assa y cross reactivit y between Oxycodo ne and Opiates, an d lower sensitivi ty compared to GC- MS method, the hailey t results may be falsely positiv e or falsely negative. Confirmation wi th concurrent GC-M S results is recommended. POC U PCP (test code Negative Negative Drug Ab use Cutoff = 98996-4) Concentration: Cutoff: 25 ng/m L POC U TCA (test code Negative Negative Drug Ab use Cutoff = 46756-1) Concentration: Cutoff: 1000 ng /mL POC U PPX (test code Negative Negative Drug Ab use Cutoff = 59466-2) Concentration: Cutoff: 300 ng/ mL Method description: [...] testing. Lab Interpretation Abnormal (test code = 71035-7) [facility] Urine Drug [id number] 18:30:48 Test Item Value Reference Range Interpretation Comments POC U Amp (test code Negative Negative Drug Ab use Cutoff = 06440-3) Concentration: Cutoff: 1000 ng /mL POC U Barbit (test Negative Negative Drug Abus e Cutoff code = 26917-1) Concentratio n: 300 ng/mL POC U Benzo (test Positive Negative A Drug Abuse Cutoff code = 13129-2) Concentratio n: Cutoff: 300 ng/ mL POC U Cocaine (test Negative Negative Drug Abu se Cutoff code = 21981-7) Concentratio n: Cutoff: 300 ng/ mL POC U THC (test code Positive Negative A Drug Ab use Cutoff = 6709) Concentration: Cutoff: 50 ng/m L POC U Methd (test Negative Negative Drug Abuse Cutoff code = 6701) Concentration: Cutoff: 300 ng/ mL POC U Mampht (test Negative Negative Drug Abus e Cutoff code = 17447-6) Concentratio n: Cutoff: 1000 ng /mL POC U Opiate (test Negative Negative Drug Abus e Cutoff code = 60738-7) Concentratio n: Cutoff: 2000 ng /mL POC U Oxycod (test Positive Negative A Drug Abus e Cutoff code = 65587-3) Concentratio n: Cutoff: 100 ng/ mL Due to the assa y cross reactivit y between Oxycodo ne and Opiates, an d lower sensitivi ty compared to GC- MS method, the hailey t results may be falsely positiv e or falsely negative. Confirmation wi th concurrent GC-M S results is recommended. POC U PCP (test code Negative Negative Drug Ab use Cutoff = 73980-4) Concentration: Cutoff: 25 ng/m L POC U TCA (test code Negative Negative Drug Ab use Cutoff = 15156-8) Concentration: Cutoff: 1000 ng /mL POC U PPX (test code Negative Negative Drug Ab use Cutoff = 25138-9) Concentration: Cutoff: 300 ng/ mL Method description: [...] testing. Lab Interpretation Abnormal (test code = 73555-9) [facility] Urine Drug [id number] 18:30:48 Test Item Value Reference Range Interpretation Comments POC U Amp (test code Negative Negative Drug Ab use Cutoff = 66805-7) Concentration: Cutoff: 1000 ng /mL POC U Barbit (test Negative Negative Drug Abus e Cutoff code = 87165-3) Concentratio n: 300 ng/mL POC U Benzo (test Positive Negative A Drug Abuse Cutoff code = 16878-5) Concentratio n: Cutoff: 300 ng/ mL POC U Cocaine (test Negative Negative Drug Abu se Cutoff code = 28333-7) Concentratio n: Cutoff: 300 ng/ mL POC U THC (test code Positive Negative A Drug Ab use Cutoff = 6709) Concentration: Cutoff: 50 ng/m L POC U Methd (test Negative Negative Drug Abuse Cutoff code = 6701) Concentration: Cutoff: 300 ng/ mL POC U Mampht (test Negative Negative Drug Abus e Cutoff code = 10213-9) Concentratio n: Cutoff: 1000 ng /mL POC U Opiate (test Negative Negative Drug Abus e Cutoff code = 26136-5) Concentratio n: Cutoff: 2000 ng /mL POC U Oxycod (test Positive Negative A Drug Abus e Cutoff code = 03945-0) Concentratio n: Cutoff: 100 ng/ mL Due to the assa y cross reactivit y between Oxycodo ne and Opiates, an d lower sensitivi ty compared to GC- MS method, the hailey t results may be falsely positiv e or falsely negative. Confirmation wi th concurrent GC-M S results is recommended. POC U PCP (test code Negative Negative Drug Ab use Cutoff = 14618-2) Concentration: Cutoff: 25 ng/m L POC U TCA (test code Negative Negative Drug Ab use Cutoff = 24002-3) Concentration: Cutoff: 1000 ng /mL POC U PPX (test code Negative Negative Drug Ab use Cutoff = 16939-5) Concentration: Cutoff: 300 ng/ mL Method description: [...] testing. Lab Interpretation Abnormal (test code = 53419-2) [facility] Urine Drug [id number] 18:30:48 Test Item Value Reference Range Interpretation Comments POC U Amp (test code Negative Negative Drug Ab use Cutoff = 91729-9) Concentration: Cutoff: 1000 ng /mL POC U Barbit (test Negative Negative Drug Abus e Cutoff code = 11779-9) Concentratio n: 300 ng/mL POC U Benzo (test Positive Negative A Drug Abuse Cutoff code = 77373-4) Concentratio n: Cutoff: 300 ng/ mL POC U Cocaine (test Negative Negative Drug Abu se Cutoff code = 02470-4) Concentratio n: Cutoff: 300 ng/ mL POC U THC (test code Positive Negative A Drug Ab use Cutoff = 6709) Concentration: Cutoff: 50 ng/m L POC U Methd (test Negative Negative Drug Abuse Cutoff code = 6701) Concentration: Cutoff: 300 ng/ mL POC U Mampht (test Negative Negative Drug Abus e Cutoff code = 17913-5) Concentratio n: Cutoff: 1000 ng /mL POC U Opiate (test Negative Negative Drug Abus e Cutoff code = 74925-0) Concentratio n: Cutoff: 2000 ng /mL POC U Oxycod (test Positive Negative A Drug Abus e Cutoff code = 75299-4) Concentratio n: Cutoff: 100 ng/ mL Due to the assa y cross reactivit y between Oxycodo ne and Opiates, an d lower sensitivi ty compared to GC- MS method, the hailey t results may be falsely positiv e or falsely negative. Confirmation wi th concurrent GC-M S results is recommended. POC U PCP (test code Negative Negative Drug Ab use Cutoff = 64296-1) Concentration: Cutoff: 25 ng/m L POC U TCA (test code Negative Negative Drug Ab use Cutoff = 14502-3) Concentration: Cutoff: 1000 ng /mL POC U PPX (test code Negative Negative Drug Ab use Cutoff = 13035-6) Concentration: Cutoff: 300 ng/ mL Method description: [...] testing. Lab Interpretation Abnormal (test code = 49669-9) [facility] Urine Drug [id number] 18:30:48 Test Item Value Reference Range Interpretation Comments POC U Amp (test code Negative Negative Drug Ab use Cutoff = 31902-0) Concentration: Cutoff: 1000 ng /mL POC U Barbit (test Negative Negative Drug Abus e Cutoff code = 99879-0) Concentratio n: 300 ng/mL POC U Benzo (test Positive Negative A Drug Abuse Cutoff code = 75979-6) Concentratio n: Cutoff: 300 ng/ mL POC U Cocaine (test Negative Negative Drug Abu se Cutoff code = 00771-5) Concentratio n: Cutoff: 300 ng/ mL POC U THC (test code Positive Negative A Drug Ab use Cutoff = 6709) Concentration: Cutoff: 50 ng/m L POC U Methd (test Negative Negative Drug Abuse Cutoff code = 6701) Concentration: Cutoff: 300 ng/ mL POC U Mampht (test Negative Negative Drug Abus e Cutoff code = 16071-3) Concentratio n: Cutoff: 1000 ng /mL POC U Opiate (test Negative Negative Drug Abus e Cutoff code = 34056-9) Concentratio n: Cutoff: 2000 ng /mL POC U Oxycod (test Positive Negative A Drug Abus e Cutoff code = 92181-8) Concentratio n: Cutoff: 100 ng/ mL Due to the assa y cross reactivit y between Oxycodo ne and Opiates, an d lower sensitivi ty compared to GC- MS method, the hailey t results may be falsely positiv e or falsely negative. Confirmation wi th concurrent GC-M S results is recommended. POC U PCP (test code Negative Negative Drug Ab use Cutoff = 60605-6) Concentration: Cutoff: 25 ng/m L POC U TCA (test code Negative Negative Drug Ab use Cutoff = 69323-6) Concentration: Cutoff: 1000 ng /mL POC U PPX (test code Negative Negative Drug Ab use Cutoff = 82437-2) Concentration: Cutoff: 300 ng/ mL Method description: [...] testing. Lab Interpretation Abnormal (test code = 88065-8) [facility] Urine Drug [id number] 18:30:48 Test Item Value Reference Range Interpretation Comments POC U Amp (test code Negative Negative Drug Ab use Cutoff = 99605-5) Concentration: Cutoff: 1000 ng /mL POC U Barbit (test Negative Negative Drug Abus e Cutoff code = 20985-2) Concentratio n: 300 ng/mL POC U Benzo (test Positive Negative A Drug Abuse Cutoff code = 08137-6) Concentratio n: Cutoff: 300 ng/ mL POC U Cocaine (test Negative Negative Drug Abu se Cutoff code = 03875-0) Concentratio n: Cutoff: 300 ng/ mL POC U THC (test code Positive Negative A Drug Ab use Cutoff = 6709) Concentration: Cutoff: 50 ng/m L POC U Methd (test Negative Negative Drug Abuse Cutoff code = 6701) Concentration: Cutoff: 300 ng/ mL POC U Mampht (test Negative Negative Drug Abus e Cutoff code = 16708-4) Concentratio n: Cutoff: 1000 ng /mL POC U Opiate (test Negative Negative Drug Abus e Cutoff code = 00054-0) Concentratio n: Cutoff: 2000 ng /mL POC U Oxycod (test Positive Negative A Drug Abus e Cutoff code = 08211-9) Concentratio n: Cutoff: 100 ng/ mL Due to the assa y cross reactivit y between Oxycodo ne and Opiates, an d lower sensitivi ty compared to GC- MS method, the hailey t results may be falsely positiv e or falsely negative. Confirmation wi th concurrent GC-M S results is recommended. POC U PCP (test code Negative Negative Drug Ab use Cutoff = 30761-9) Concentration: Cutoff: 25 ng/m L POC U TCA (test code Negative Negative Drug Ab use Cutoff = 96516-6) Concentration: Cutoff: 1000 ng /mL POC U PPX (test code Negative Negative Drug Ab use Cutoff = 68661-9) Concentration: Cutoff: 300 ng/ mL Method description: [...] testing. Lab Interpretation Abnormal (test code = 24340-7) [facility] Urine Drug [id number] 18:30:48 Test Item Value Reference Range Interpretation Comments POC U Amp (test code Negative Negative Drug Ab use Cutoff = 19811-6) Concentration: Cutoff: 1000 ng /mL POC U Barbit (test Negative Negative Drug Abus e Cutoff code = 58127-9) Concentratio n: 300 ng/mL POC U Benzo (test Positive Negative A Drug Abuse Cutoff code = 12718-1) Concentratio n: Cutoff: 300 ng/ mL POC U Cocaine (test Negative Negative Drug Abu se Cutoff code = 01913-1) Concentratio n: Cutoff: 300 ng/ mL POC U THC (test code Positive Negative A Drug Ab use Cutoff = 6709) Concentration: Cutoff: 50 ng/m L POC U Methd (test Negative Negative Drug Abuse Cutoff code = 6701) Concentration: Cutoff: 300 ng/ mL POC U Mampht (test Negative Negative Drug Abus e Cutoff code = 09819-4) Concentratio n: Cutoff: 1000 ng /mL POC U Opiate (test Negative Negative Drug Abus e Cutoff code = 51888-7) Concentratio n: Cutoff: 2000 ng /mL POC U Oxycod (test Positive Negative A Drug Abus e Cutoff code = 08481-1) Concentratio n: Cutoff: 100 ng/ mL Due to the assa y cross reactivit y between Oxycodo ne and Opiates, an d lower sensitivi ty compared to GC- MS method, the hailey t results may be falsely positiv e or falsely negative. Confirmation wi th concurrent GC-M S results is recommended. POC U PCP (test code Negative Negative Drug Ab use Cutoff = 53473-6) Concentration: Cutoff: 25 ng/m L POC U TCA (test code Negative Negative Drug Ab use Cutoff = 63621-1) Concentration: Cutoff: 1000 ng /mL POC U PPX (test code Negative Negative Drug Ab use Cutoff = 58544-0) Concentration: Cutoff: 300 ng/ mL Method description: [...] testing. Lab Interpretation Abnormal (test code = 40533-0) [facility] PCR- Asymptomatic [id number] 03:09:25 Test Item Value Reference Range Interpretation Comments COVID19 (SARS Not Detected Not Detected CoV-2) Result (test code = __This test is a 13616-0) qualitative reverse-transcr iptase polymerase alanna n reaction [...] patients provid ed by the manufacture r ([employer]or) c an be reviewed at:https://www. fda.gov /media/068542/d ownload . A fact sheet for Health Care pro viders is provided by the baby stroller rental clerk ([employer]) and can be reviewed at: https://www.[employer] .gov/me juliet/133359/down load Results must be interpreted wit hin [...] were verified by the Microbiology Laboratory at [facility] [place], CLIA Accreditation # : [id number] and CAP Accreditation # : [id number]. COVID19 SARS MANAGER REIMBURSEMENT Swab Source (test code = 71582) COVID19 SARS Pre-Radiation Indication (test Therapy code = 95847) [facility]- As[facility] [id number] 03:09:25 Test Item Value Reference Range Interpretation Comments COVID19 (SARS Not Detected Not Detected CoV-2) Result (test code = __This test is a 39388-5) qualitative reverse-transcr iptase polymerase alanna n reaction [...] patients provid ed by the manufacture r ([employer]) c an be reviewed at:https://www. fda.gov /media/819671/d ownload . A fact sheet for Health Care pro viders is provided by the baby stroller rental clerk ([employer]) and can be reviewed at: https://www.fda .gov/me juliet/782163/down load Results must be interpreted wit hin [...] verified by the Microbiology Laboratory at [facility], CLIA Accreditation # : [id number] and CAP Accreditation # : [id number]. COVID19 SARS MANAGER REIMBURSEMENT Swab Source (test code = 84017) COVID19 SARS Pre-Radiation Indication (test Therapy code = 22628) [facility] [place] ([place]) PCR- Asymptomatic [id number] 03:09:25 Test Item Value Reference Range Interpretation Comments COVID19 (SARS Not Detected Not Detected CoV-2) Result (test code = __This test is a 80482-2) qualitative reverse-transcr iptase polymerase alanna n reaction (RT-PC R) developed for t he Chois[employer] RUBY 680 0 system and inte nded [...] patients provid ed by the manufacture r ([employer]) c an be reviewed at:https://www. fda.gov /media/024681/d ownload . A fact sheet for Health Care pro viders is provided by the baby stroller rental clerk ([employer]) and can be reviewed at: https://www.fda .gov/me juliet/176451/down load Results must be interpreted wit hin [...] verified by the Microbiology Laboratory at [facility], CLIA Accreditation # : [id number] and CAP Accreditation # : [id number]. COVID19 SARS MANAGER REIMBURSEMENT Swab Source (test code = 76148) COVID19 SARS Pre-Radiation Indication (test Therapy code = 44164) [facility]- Asymptomatic [id number] 03:09:25 Test Item Value Reference Range Interpretation Comments COVID19 (SARS Not Detected Not Detected CoV-2) Result (test code = __This test is a 75996-1) qualitative reverse-transcr iptase polymerase alanna n reaction [...] patients provid ed by the manufacture r ([employer]) c an be reviewed at:https://www. fda.gov /media/044852/d ownload . A fact sheet for Health Care pro viders is provided by the baby stroller rental clerk ([employer]) and can be reviewed at: https://www.fda .gov/me juliet/683003/down load Results must be interpreted wit hin [...] verified by the Microbiology Laboratory at [facility], CLIA Accreditation # : [id number] and CAP Accreditation # : [id number]. COVID19 SARS MANAGER REIMBURSEMENT Swab Source (test code = 22938) COVID19 SARS Pre-Radiation Indication (test Therapy code = 65028) [facility]- Asymptomatic [id number] 03:09:25 Test Item Value Reference Range Interpretation Comments COVID19 (SARS Not Detected Not Detected CoV-2) Result (test code = __This test is a 39591-4) qualitative reverse-transcr iptase polymerase alanna n reaction [...] patients provid ed by the manufacture r ([employer]) c an be reviewed at:https://www. fda.gov /media/704166/d ownload . A fact sheet for Health Care pro viders is provided by the baby stroller rental clerk ([employer]) and can be reviewed at: https://www.fda .gov/me juliet/576097/down load Results must be interpreted wit hin [...] verified by the Microbiology Laboratory at [facility], CLIA Accreditation # : [id number] and CAP Accreditation # : [id number]. COVID19 SARS MANAGER REIMBURSEMENT Swab Source (test code = 15808) COVID19 SARS Pre-Radiation Indication (test Therapy code = 69723) [facility] [place] ([place]-2) PCR- Asymptomatic [id number] 03:09:25 Test Item Value Reference Range Interpretation Comments COVID19 (SARS Not Detected Not Detected CoV-2) Result (test code = __This test is a 60562-7) qualitative reverse-transcr iptase polymerase alanna n reaction (RT-PC R) developed for t he Choisr RUBY 680 0 system and inte nded [...] patients provid ed by the manufacture r ([employer]) c an be reviewed at:https://www. fda.gov /media/923163/d ownload . A fact sheet for Health Care pro viders is provided by the baby stroller rental clerk ([employer]) and can be reviewed at: https://www.fda .gov/me juliet/169801/down load Results must be interpreted wit hin [...] were verified by the Microbiology Laboratory at [facility] [place], CLIA Accreditation # : [id number] and CAP Accreditation # : [id number]. COVID19 SARS MANAGER REIMBURSEMENT Swab Source (test code = 81919) COVID19 SARS Pre-Radiation Indication (test Therapy code = 35483) [facility] [place] ([place]-2) PCR- Asymptomatic [id number] 03:09:25 Test Item Value Reference Range Interpretation Comments COVID19 (SARS Not Detected Not Detected CoV-2) Result (test code = __This test is a 12212-3) qualitative reverse-transcr iptase polymerase alanna n reaction [...] patients provid ed by the manufacture r ([employer]) c an be reviewed at:https://www. fda.gov /media/556369/d ownload . A fact sheet for Health Care pro viders is provided by the baby stroller rental clerk ([employer]) and can be reviewed at: https://www.[employer] .gov/me juliet/154425/down load Results must be interpreted wit hin [...] verified by the Microbiology Laboratory at [facility], CLIA Accreditation # : [id number] and CAP Accreditation # : [id number]. COVID19 SARS MANAGER REIMBURSEMENT Swab Source (test code = 77570) COVID19 SARS Pre-Radiation Indication (test Therapy code = 78037) [facility]- Asymptomatic [id number] 03:09:25 Test Item Value Reference Range Interpretation Comments COVID19 (SARS Not Detected Not Detected CoV-2) Result (test code = __This test is a 81419-0) qualitative reverse-transcr iptase polymerase alanna n reaction [...] patients provid ed by the manufacture r ([employer]) c an be reviewed at:https://www. fda.gov /media/496407/d ownload . A fact sheet for Health Care pro viders is provided by the baby stroller rental clerk ([employer]) and can be reviewed at: https://www.fda .gov/me juliet/524674/down load Results must be interpreted wit hin [...] verified by the Microbiology Laboratory at [facility], CLIA Accreditation # : [id number] and CAP Accreditation # : [id number]. COVID19 SARS MANAGER REIMBURSEMENT Swab Source (test code = 90818) COVID19 SARS Pre-Radiation Indication (test Therapy code = 42807) [facility]- Asymptomatic [id number] 03:09:25 Test Item Value Reference Range Interpretation Comments COVID19 (SARS Not Detected Not Detected CoV-2) Result (test code = __This test is a 72783-7) qualitative reverse-transcr iptase polymerase alanna n reaction [...] patients provid ed by the manufacture r ([employer]) c an be reviewed at:https://www. fda.gov /media/287214/d ownload . A fact sheet for Health Care pro viders is provided by the baby stroller rental clerk ([employer]) and can be reviewed at: https://www.[employer] .gov/me juliet/953967/down load Results must be interpreted wit hin [...] verified by the Microbiology Laboratory at [facility], CLIA Accreditation # : [id number] and CAP Accreditation # : [id number]. COVID19 SARS MANAGER REIMBURSEMENT Swab Source (test code = 34018) COVID19 SARS Pre-Radiation Indication (test Therapy code = 44596) [facility] [id number] 00:43:46 Test Item Value Reference Range Interpretation Comments pH Raghavendra (test code = 7.40 7.32-7.43 Results are 2746-6) corrected for a body temp of 37C pCO2 Ragahvendra (test code = 47.6 See_Comment [Auto mated message] 2021-01) The system [employer] generated this result transmit kaylie reference range : 41.0 - 51.0 mmH g. The reference r pinky was not used to interpret this result as normal/abnormal . pO2 Raghavendra (test code = 52 mmHg 2705-2) HCO3 Raghavendra (test code = 29 mmol/L 21-28 H 45434-4) Base Excess Raghavendra (test 3 mmol/L -2-3 code = 1927-3) O2 Sat Raghavendra (test code = 87 % 2711-0) Lab Interpretation (test Abnormal code = 76390-5) [facility] [id number] 00:43:46 Test Item Value Reference Range Interpretation Comments pH Raghavendra (test code = 7.40 7.32-7.43 Results are 2746-6) corrected for a body temp of 37C pCO2 Raghavendra (test code = 47.6 See_Comment [Auto mated message] 2021-01) The system [employer] generated this result transmit kaylie reference range : 41.0 - 51.0 mmH g. The reference r pinky was not used to interpret this result as normal/abnormal . pO2 Raghavendra (test code = 52 mmHg 2705-2) HCO3 Raghavendra (test code = 29 mmol/L 21-28 H 38812-7) Base Excess Raghavendra (test 3 mmol/L -2-3 code = 1927-3) O2 Sat Raghavendra (test code = 87 % 2711-0) Lab Interpretation (test Abnormal code = 22702-4) [facility] [id number] 00:43:46 Test Item Value Reference Range Interpretation Comments pH Raghavendra (test code = 7.40 7.32-7.43 Results are 2746-6) corrected for a body temp of 37C pCO2 Raghavendra (test code = 47.6 See_Comment [Auto mated message] 2021-01) The system [employer] generated this result transmit kaylie reference range : 41.0 - 51.0 mmH g. The reference r pinky was not used to interpret this result as normal/abnormal . pO2 Raghavendra (test code = 52 mmHg 2705-2) HCO3 Raghavendra (test code = 29 mmol/L 21-28 H 29730-3) Base Excess Raghavendra (test 3 mmol/L -2-3 code = 1927-3) O2 Sat Raghavendra (test code = 87 % 2711-0) Lab Interpretation (test Abnormal code = 43410-2) [facility] [id number] 00:43:46 Test Item Value Reference Range Interpretation Comments pH Raghavendra (test code = 7.40 7.32-7.43 Results are 2746-6) corrected for a body temp of 37C pCO2 Raghavendra (test code = 47.6 See_Comment [Auto mated message] 2021-01) The system [employer] generated this result transmit kaylie reference range : 41.0 - 51.0 mmH g. The reference r pinky was not used to interpret this result as normal/abnormal . pO2 Raghavendra (test code = 52 mmHg 2705-2) HCO3 Raghavendra (test code = 29 mmol/L -28 H 90713-7) Base Excess Raghavendra (test 3 mmol/L -2-3 code = 1927-3) O2 Sat Raghavendra (test code = 87 % 2711-0) Lab Interpretation (test Abnormal code = 26624-5) [facility] [id number] 00:43:46 Test Item Value Reference Range Interpretation Comments pH Raghavendra (test code = 7.40 7.32-7.43 Results are 2746-6) corrected for a body temp of 37C pCO2 Raghavendra (test code = 47.6 See_Comment [Auto mated message] 2021-01) The system [employer] generated this result transmit kaylie reference range : 41.0 - 51.0 mmH g. The reference r pinky was not used to interpret this result as normal/abnormal . pO2 Raghavendra (test code = 52 mmHg 2705-2) HCO3 Raghavendra (test code = 29 mmol/L 21-28 H 59025-3) Base Excess Raghavendra (test 3 mmol/L -2-3 code = 1927-3) O2 Sat Raghavendra (test code = 87 % 2711-0) Lab Interpretation (test Abnormal code = 00027-7) [facility] [id number] 00:43:46 Test Item Value Reference Range Interpretation Comments pH Raghavendra (test code = 7.40 7.32-7.43 Results are 2746-6) corrected for a body temp of 37C pCO2 Raghavendra (test code = 47.6 See_Comment [Auto mated message] 2021-01) The system [employer] generated this result transmit kaylie reference range : 41.0 - 51.0 mmH g. The reference r pinky was not used to interpret this result as normal/abnormal . pO2 Raghavendra (test code = 52 mmHg 2705-2) HCO3 Raghavendra (test code = 29 mmol/L 21-28 H 69704-6) Base Excess Raghavendra (test 3 mmol/L -2-3 code = 1927-3) O2 Sat Raghavednra (test code = 87 % 2711-0) Lab Interpretation (test Abnormal code = 34671-4) [facility] [id number] 00:43:46 Test Item Value Reference Range Interpretation Comments pH Raghavendra (test code = 7.40 7.32-7.43 Results are 2746-6) corrected for a body temp of 37C pCO2 Raghavendra (test code = 47.6 See_Comment [Auto mated message] 2021-01) The system [employer] generated this result transmit kaylie reference range : 41.0 - 51.0 mmH g. The reference r pinky was not used to interpret this result as normal/abnormal . pO2 Raghavendra (test code = 52 mmHg 2705-2) HCO3 Raghavendra (test code = 29 mmol/L 21-28 H 59998-4) Base Excess Raghavendra (test 3 mmol/L -2-3 code = 1927-3) O2 Sat Raghavendra (test code = 87 % 2711-0) Lab Interpretation (test Abnormal code = 04969-7) [facility] [id number] 00:43:46 Test Item Value Reference Range Interpretation Comments pH Raghavendra (test code = 7.40 7.32-7.43 Results are 2746-6) corrected for a body temp of 37C pCO2 Raghavendra (test code = 47.6 See_Comment [Auto mated message] 2021-01) The system [employer] generated this result transmit kaylie reference range : 41.0 - 51.0 mmH g. The reference r pinky was not used to interpret this result as normal/abnormal . pO2 Raghavendra (test code = 52 mmHg 2705-2) HCO3 Raghavendra (test code = 29 mmol/L 21-28 H 51097-9) Base Excess Raghavendra (test 3 mmol/L -2-3 code = 1927-3) O2 Sat Raghavendra (test code = 87 % 2711-0) Lab Interpretation (test Abnormal code = 43444-8) [facility] [id number] 00:43:46 Test Item Value Reference Range Interpretation Comments pH Raghavendra (test code = 7.40 7.32-7.43 Results are 2746-6) corrected for a body temp of 37C pCO2 Raghavendra (test code = 47.6 See_Comment [Auto mated message] 2021-01) The system [employer] generated this result transmit kaylie reference range : 41.0 - 51.0 mmH g. The reference r pinky was not used to interpret this result as normal/abnormal . pO2 Raghavendra (test code = 52 mmHg 2705-2) HCO3 Raghavendra (test code = 29 mmol/L 21-28 H 79697-9) Base Excess Raghavendra (test 3 mmol/L -2-3 code = 1927-3) O2 Sat Raghavendra (test code = 87 % 2711-0) Lab Interpretation (test Abnormal code = 79208-3) [facility] Gcgoqxcluzd8535-85-64 00:17:35 Test Item Value Reference Range Interpretation Comments UA Ketones (test code = 5797-6) NEG NEG mg/dL [facility] Pzdoejewgpc9504-10-96 00:17:35 Test Item Value Reference Range Interpretation Comments UA Ketones (test code = 5797-6) NEG NEG mg/dL [facility] Qazmgvrophg1317-68-41 00:17:35 Test Item Value Reference Range Interpretation Comments UA Ketones (test code = 5797-6) NEG NEG mg/dL [facility] Lxcacktkyxd7135-94-50 00:17:35 Test Item Value Reference Range Interpretation Comments UA Ketones (test code = 5797-6) NEG NEG mg/dL [facility] Mdvvspzlivn9258-01-70 00:17:35 Test Item Value Reference Range Interpretation Comments UA Ketones (test code = 5797-6) NEG NEG mg/dL [facility] Wxniyokttkh2706-83-93 00:17:35 Test Item Value Reference Range Interpretation Comments UA Ketones (test code = 5797-6) NEG NEG mg/dL [facility] Virmqfocwph2227-55-92 00:17:35 Test Item Value Reference Range Interpretation Comments UA Ketones (test code = 5797-6) NEG NEG mg/dL [facility] Otfejmpywih4203-21-61 00:17:35 Test Item Value Reference Range Interpretation Comments UA Ketones (test code = 5797-6) NEG NEG mg/dL [facility] Lrakvhkxkwp0796-73-25 00:17:35 Test Item Value Reference Range Interpretation Comments UA Ketones (test code = 5797-6) NEG NEG mg/dL [facility] Bbhfrtxb4030-22-18 21:37:06 Test Item Value Reference Range Interpretation Comments POC Critical Comment See Note Test pe rformer notified (test code = 8955) Ordering Licensed Provider and /o r designee of POC Glucose Screen critical Results.. [facility] Yafdsnry2395-87-22 21:37:06 Test Item Value Reference Range Interpretation Comments POC Critical Comment See Note Test pe rformer notified (test code = 8955) Ordering Licensed Provider and /o r designee of POC Glucose Screen critical Results.. [facility] Zjxytswe6622-51-70 21:37:06 Test Item Value Reference Range Interpretation Comments POC Critical Comment See Note Test pe rformer notified (test code = 8955) Ordering Licensed Provider and /o r designee of POC Glucose Screen critical Results.. [facility] Ohxzviks4910-33-61 21:37:06 Test Item Value Reference Range Interpretation Comments POC Critical Comment See Note Test pe rformer notified (test code = 8955) Ordering Licensed Provider and /o r designee of POC Glucose Screen critical Results.. [facility]2023-02-10 21:37:06 Test Item Value Reference Range Interpretation Comments POC Critical Comment See Note Test pe rformer notified (test code = 8955) Ordering Licensed Provider and /o r designee of POC Glucose Screen critical Results.. [facility]2023-02-10 21:37:06 Test Item Value Reference Range Interpretation Comments POC Critical Comment See Note Test pe rformer notified (test code = 8955) Ordering Licensed Provider and /o r designee of POC Glucose Screen critical Results.. [facility]2023-02-10 21:37:06 Test Item Value Reference Range Interpretation Comments POC Critical Comment See Note Test pe rformer notified (test code = 8955) Ordering Licensed Provider and /o r designee of POC Glucose Screen critical Results.. [facility]2023-02-10 21:37:06 Test Item Value Reference Range Interpretation Comments POC Critical Comment See Note Test pe rformer notified (test code = 8955) Ordering Licensed Provider and /o r designee of POC Glucose Screen critical Results.. [facility] [facility] [id number] 21:37:06 Test Item Value Reference Range Interpretation Comments POC Critical Comment See Note Test pe rformer notified (test code = 8955) Ordering Licensed Provider and /o r designee of POC Glucose Screen critical Results.. [facility] VBG+[id number] 03:40:13 Test Item Value Reference Range Interpretation Comments POC VB pH (test code 7.46 7.31-7.41 H = 2746-6) POC VB pCO2 (test 42 See_Comment [Automate d message] code = 2021-01) The system ich generated this result transmitted ref erence range: 41 - 51 mmHg. The reference r pinky was not used to interpret this result as normal/abnor mal. POC VB pO2 (test 61 mmHg code = 2704-2) POC VB TCO2 (test 31 See_Comment H [Automate d message] code = 2026-11) The system Semmle generated this result transmitted ref erence range: 24 - 29 mEq/L. The reference r pinky was not used to interpret this result as normal/abnor mal. POC VB Bicarb (test 30 mmol/L 23-28 H code = 98462-5) POC VB Base Ex (test 5 mmol/L [...] chemic ally sensitive biose nsors on a StatsMix ip that are config ured to perform spec ific tests. The microfabricated sensors measure analyte concent ration by an electroch emical assay. POC Sample Type Venous (test code = 6690) POC Clean Dev (test Yes code = 6672) Performing Lab (test MDA Main Main Ca mpus code = 40837) [facility], [facility], [place] [address]; Supervisor Front: Margarita Jacob MD; Waived Point of Care Testing - Gabrielle aaron MD Lab Interpretation Abnormal (test code = 54764-1) [facility] V[facility]+[id number] 03:40:13 Test Item Value Reference Range Interpretation Comments POC VB pH (test code 7.46 7.31-7.41 H = 2746-6) POC VB pCO2 (test 42 See_Comment [Automate d message] code = 2021-01) The system Semmle generated this result transmitted ref erence range: 41 - 51 mmHg. The reference r pinky was not used to interpret this result as normal/abnor mal. POC VB pO2 (test 61 mmHg code = 2705-2) POC VB TCO2 (test 31 See_Comment H [Automate d message] code = 2026-11) The system Semmle generated this result transmitted ref erence range: 24 - 29 mEq/L. The reference r pinky was not used to interpret this result as normal/abnor mal. POC VB Bicarb (test 30 mmol/L 23-28 H code = 50697-5) POC VB Base Ex (test 5 mmol/L [...] chemic ally sensitive biose nsors on a StatsMix ip that are config ured to perform spec ific tests. The microfabricated sensors measure analyte concent ration by an electroch emical assay. POC Sample Type Venous (test code = 6690) POC Clean Dev (test Yes code = 6672) Performing Lab (test MDA Main Main Ca mpus code = 55158) [facility], [facility], [place] [address]; Supervisor Front: Margarita Jacob MD; Waived Point of Care Testing - Gabrielle aaron MD Lab Interpretation Abnormal (test code = 88637-2) [facility] VBG+[id number] 03:40:13 Test Item Value Reference Range Interpretation Comments POC VB pH (test code 7.46 7.31-7.41 H = 2746-6) POC VB pCO2 (test 42 See_Comment [Automate d message] code = 2021-01) The system Semmle generated this result transmitted ref erence range: 41 - 51 mmHg. The reference r pinky was not used to interpret this result as normal/abnor mal. POC VB pO2 (test 61 mmHg code = 2705-2) POC VB TCO2 (test 31 See_Comment H [Automate d message] code = 2026-11) The system Semmle generated this result transmitted ref erence range: 24 - 29 mEq/L. The reference r pinky was not used to interpret this result as normal/abnor mal. POC VB Bicarb (test 30 mmol/L 23-28 H code = 60719-2) POC VB Base Ex (test 5 mmol/L [...] chemic ally sensitive biose nsors on a StatsMix ip that are config ured to perform spec ific tests. The microfabricated sensors measure analyte concent ration by an electroch emical assay. POC Sample Type Venous (test code = 6690) POC Clean Dev (test Yes code = 6672) Performing Lab (test MDA Main Main Ca mpus code = 93286) [facility], [address] [place], [place] [address], [place] [address]; Supervisor Front: Margarita Jacob MD; Waived Point of Care Testing - Gabrielle aaron MD Lab Interpretation Abnormal (test code = 17630-3) [facility] VBG+[id number] 03:40:13 Test Item Value Reference Range Interpretation Comments POC VB pH (test code 7.46 7.31-7.41 H = 2746-6) POC VB pCO2 (test 42 See_Comment [Automate d message] code = 2020-) The system Semmle generated this result transmitted ref erence range: 41 - 51 mmHg. The reference r pinky was not used to interpret this result as normal/abnor mal. POC VB pO2 (test 61 mmHg code = 2705-2) POC VB TCO2 (test 31 See_Comment H [Automate d message] code = 2026-) The system Semmle generated this result transmitted ref erence range: 24 - 29 mEq/L. The reference r pinky was not used to interpret this result as normal/abnor mal. POC VB Bicarb (test 30 mmol/L 23-28 H code = 87301-5) POC VB Base Ex (test 5 mmol/L [...] chemic ally sensitive biose nsors on a StatsMix ip that are config ured to perform spec ific tests. The microfabricated sensors measure analyte concent ration by an electroch emical assay. POC Sample Type Venous (test code = 6690) POC Clean Dev (test Yes code = 6672) Performing Lab (test MDA Main Main Ca mpus code = 89089) [facility], [address] [place] [address] [place] [address]; Supervisor Front: Margarita Jacob MD; Waived Point of Care Testing - Gabrielle aaron MD Lab Interpretation Abnormal (test code = 70290-3) [facility] V[facility]+[id number] 03:40:13 Test Item Value Reference Range Interpretation Comments POC VB pH (test code 7.46 7.31-7.41 H = 2746-6) POC VB pCO2 (test 42 See_Comment [Automate d message] code = 2020-) The system Semmle generated this result transmitted ref erence range: 41 - 51 mmHg. The reference r pinky was not used to interpret this result as normal/abnor mal. POC VB pO2 (test 61 mmHg code = 2705-2) POC VB TCO2 (test 31 See_Comment H [Automate d message] code = 2026-) The system Semmle generated this result transmitted ref erence range: 24 - 29 mEq/L. The reference r pinky was not used to interpret this result as normal/abnor mal. POC VB Bicarb (test 30 mmol/L 23-28 H code = 11057-1) POC VB Base Ex (test 5 mmol/L [...] chemic ally sensitive biose nsors on a StatsMix ip that are config ured to perform spec ific tests. The microfabricated sensors measure analyte concent ration by an electroch emical assay. POC Sample Type Venous (test code = 6690) POC Clean Dev (test Yes code = 6672) Performing Lab (test MDA Main Main Ca mpus code = 90497) [facility], [address] [place] [address], [place] [address]; Supervisor Front: Margarita Jacob MD; Waived Point of Care Testing - Gabrielle aaron MD Lab Interpretation Abnormal (test code = 66535-2) [facility] V[facility]+[id number] 03:40:13 Test Item Value Reference Range Interpretation Comments POC VB pH (test code 7.46 7.31-7.41 H = 2746-6) POC VB pCO2 (test 42 See_Comment [Automate d message] code = 2020-) The system Semmle generated this result transmitted ref erence range: 41 - 51 mmHg. The reference r pinky was not used to interpret this result as normal/abnor mal. POC VB pO2 (test 61 mmHg code = 2705-2) POC VB TCO2 (test 31 See_Comment H [Automate d message] code = 2026-) The system [employer] generated this result transmitted ref erence range: 24 - 29 mEq/L. The reference r pinky was not used to interpret this result as normal/abnor mal. POC VB Bicarb (test 30 mmol/L 23-28 H code = 47520-6) POC VB Base Ex (test 5 mmol/L -2-3 H code = 1927-3) POC VB O2 Sat (test 92 % code = 2711-0) POC VB LAC (test 2.4 mmol/L 0.9-1.7 H Method desc ription: code = 2519-7) The i-STAT is an analyzer used f or in vitro quantific ation of various anal ytes in whole blood. The device uses a [employer] disposable cart ridge which contains microfabricated sensors, a calibration kaye ution, fluidics system , and a waste chamber . Each test cartridge contains chemic ally sensitive biose nsors on a StatsMix ip that are config ured to perform spec ific tests. The microfabricated sensors measure analyte concent ration by an electroch emical assay. POC Sample Type Venous (test code = 6690) POC Clean Dev (test Yes code = 6672) Performing Lab (test MDA Main Main Ca mpus code = 56826) [facility], [address] [place] [address], [place] [address]; Supervisor Front: Margarita Jacob MD; Waived Point of Care Testing - Gabrielle aaron MD Lab Interpretation Abnormal (test code = 64590-2) [facility]+[id number] 03:40:13 Test Item Value Reference Range Interpretation Comments POC VB pH (test code 7.46 7.31-7.41 H = 2746-6) POC VB pCO2 (test 42 See_Comment [Automate d message] code = 2021-01) The system Semmle generated this result transmitted ref erence range: 41 - 51 mmHg. The reference r pinky was not used to interpret this result as normal/abnor mal. POC VB pO2 (test 61 mmHg code = 2705-2) POC VB TCO2 (test 31 See_Comment H [Automate d message] code = 2026-11) The system Semmle generated this result transmitted ref erence range: 24 - 29 mEq/L. The reference r pinky was not used to interpret this result as normal/abnor mal. POC VB Bicarb (test 30 mmol/L 23-28 H code = 37838-2) POC VB Base Ex (test 5 mmol/L [...] chemic ally sensitive biose nsors on a StatsMix ip that are config ured to perform spec ific tests. The microfabricated sensors measure analyte concent ration by an electroch emical assay. POC Sample Type Venous (test code = 6690) POC Clean Dev (test Yes code = 6672) Performing Lab (test MDA Main Main Ca mpus code = 22368) [facility], [facility] [facility], [place] [address]; Supervisor Front: Margarita Jacob MD; Waived Point of Care Testing - Gabrielle aaron MD Lab Interpretation Abnormal (test code = 31821-8) [facility] VBG+[id number] 03:40:13 Test Item Value Reference Range Interpretation Comments POC VB pH (test code 7.46 7.31-7.41 H = 2746-6) POC VB pCO2 (test 42 See_Comment [Automate d message] code = 2021-01) The system Semmle generated this result transmitted ref erence range: 41 - 51 mmHg. The reference r pinky was not used to interpret this result as normal/abnor mal. POC VB pO2 (test 61 mmHg code = 2705-2) POC VB TCO2 (test 31 See_Comment H [Automate d message] code = 2026-11) The system Semmle generated this result transmitted ref erence range: 24 - 29 mEq/L. The reference r pinky was not used to interpret this result as normal/abnor mal. POC VB Bicarb (test 30 mmol/L 23-28 H code = 14897-5) POC VB Base Ex (test 5 mmol/L [...] chemic ally sensitive biose nsors on a StatsMix ip that are config ured to perform spec [facility] tests. The microfabricated sensors measure analyte concent ration by an electroch emical assay. POC Sample Type Venous (test code = 6690) POC Clean Dev (test Yes code = 6672) Performing Lab (test MDA Main Main Ca mpus code = 70041) [facility], [address] [place] [address]; Supervisor Front: Margarita Jacob MD; Waived Point of Care Testing - Gabrielle aaron MD Lab Interpretation Abnormal (test code = 19610-1) [facility] VBG+[id number] 03:40:13 Test Item Value Reference Range Interpretation Comments POC VB pH (test code 7.46 7.31-7.41 H = 2746-6) POC VB pCO2 (test 42 See_Comment [Automate d message] code = 2021-01) The system Semmle generated this result transmitted ref erence range: 41 - 51 mmHg. The reference r pinky was not used to interpret this result as normal/abnor mal. POC VB pO2 (test 61 mmHg code = 2705-2) POC VB TCO2 (test 31 See_Comment H [Automate d message] code = 2026-11) The system Semmle generated this result transmitted ref erence range: 24 - 29 mEq/L. The reference r pinky was not used to interpret this result as normal/abnor mal. POC VB Bicarb (test 30 mmol/L 23-28 H code = 88842-1) POC VB Base Ex (test 5 mmol/L [...] chemic ally sensitive biose nsors on a StatsMix ip that are config ured to perform spec ific tests. The microfabricated sensors measure analyte concent ration by an electroch emical assay. POC Sample Type Venous (test code = 6690) POC Clean Dev (test Yes code = 6672) Performing Lab (test MDA Main Main Ca mpus code = 64881) [facility], [address] [place] [address] [place] [address]; Supervisor Front: Margarita Jacob MD; Waived Point of Care Testing - Gabrielle aaron MD Lab Interpretation Abnormal (test code = 30465-8) [facility]2023-02-09 00:46:13 Test Item Value Reference Range Interpretation Comments Ammonia (test code = 18 See_Comment [Autom ated message] The 62644-8) system which nerated this result tra nsmitted reference range : 11 - 51 mcmol/L. The re ference range was not u sed to interpret this result as normal/abnormal . [facility]2023-02-09 00:46:13 Test Item Value Reference Range Interpretation Comments Ammonia (test code = 18 See_Comment [Autom ated message] The 88635-5) system which ge nerated this result tra nsmitted reference range : 11 - 51 mcmol/L. The re ference range was not u sed to interpret this result as normal/abnormal . [facility]2023-02-09 00:46:13 Test Item Value Reference Range Interpretation Comments Ammonia (test code = 18 See_Comment [Autom ated message] The [address] [place] [address]) system which ge nerated this result tra nsmitted reference range : 11 - 51 mcmol/L. The re ference range was not u sed to interpret this result as normal/abnormal . [address]02-09 00:46:13 Test Item Value Reference Range Interpretation Comments Ammonia (test code = 18 See_Comment [Autom ated message] The [address] [place] [address]) system which ge nerated this result tra nsmitted reference range : 11 - 51 mcmol/L. The re ference range was not u sed to interpret this result as normal/abnormal . [address]02-09 00:46:13 Test Item Value Reference Range Interpretation Comments Ammonia (test code = 18 See_Comment [Autom ated message] The [address] [place] [address]) system which ge nerated this result tra nsmitted reference range : 11 - 51 mcmol/L. The re ference range was not u sed to interpret this result as normal/abnormal . [place] [address]-02-09 00:46:13 Test Item Value Reference Range Interpretation Comments Ammonia (test code = 18 See_Comment [Autom ated message] The [address] [place] [address]) system which ge nerated this result tra nsmitted reference range : 11 - 51 mcmol/L. The re ference range was not u sed to interpret this result as normal/abnormal . [place] [address]-02-09 00:46:13 Test Item Value Reference Range Interpretation Comments Ammonia (test code = 18 See_Comment [Autom ated message] The [address] [place] [address]) system which ge nerated this result tra nsmitted reference range : 11 - 51 mcmol/L. The re ference range was not u sed to interpret this result as normal/abnormal . [place] [address]-02-09 00:46:13 Test Item Value Reference Range Interpretation Comments Ammonia (test code = 18 See_Comment [Autom ated message] The [address] [place] [address]) system which ge nerated this result tra nsmitted reference range : 11 - 51 mcmol/L. The re ference range was not u sed to interpret this result as normal/abnormal . [facility]2023-02-09 00:46:13 Test Item Value Reference Range Interpretation Comments Ammonia (test code = 18 See_Comment [Autom ated message] The 11581-1) system which ge nerated this result tra nsmitted reference range : 11 - 51 mcmol/L. The re ference range was not u sed to interpret this result as normal/abnormal . [facility] -[id number] 16:59:59 Test Item Value Reference Range Interpretation Comments Molecular Diagnostics (Received) Yes (test code = 8400) Beaker Ap Link (test code = 54972) [id number] Block Number (Qualitative) (test BLANK code = 8193) Outside Accession (Qualitative) [id number] (test code = 8405) [facility] -[id number] 16:59:59 Test Item Value Reference Range Interpretation Comments Molecular Diagnostics (Received) Yes (test code = 8400) Beaker Ap Link (test code = 28146) [id number] Block Number (Qualitative) (test BLANK code = 8193) Outside Accession (Qualitative) [id number] (test code = 8405) [facility] -[id number] 16:59:59 Test Item Value Reference Range Interpretation Comments Molecular Diagnostics (Received) Yes (test code = 8400) Beaker Ap Link (test code = 24901) [id number] Block Number (Qualitative) (test BLANK code = 8193) Outside Accession (Qualitative) [id number] (test code = 8405) [facility] -[id number] 16:59:59 Test Item Value Reference Range Interpretation Comments Molecular Diagnostics (Received) Yes (test code = 8400) Beaker Ap Link (test code = 30633) [id number] Block Number (Qualitative) (test BLANK code = 8193) Outside Accession (Qualitative) [id number] (test code = 8405) [facility] Spec[facility] -[id number] 16:59:59 Test Item Value Reference Range Interpretation Comments Molecular Diagnostics (Received) Yes (test code = 8400) Beaker Ap Link (test code = 71038) [id number] Block Number (Qualitative) (test BLANK code = 8193) Outside Accession (Qualitative) [id number] (test code = 8405) [facility] -[id number] 16:59:59 Test Item Value Reference Range Interpretation Comments Molecular Diagnostics (Received) Yes (test code = 8400) Christianoaker Ap Link (test code = 47217) [id number] Block Number (Qualitative) (test BLANK code = 8193) Outside Accession (Qualitative) [id number] (test code = 8405) [facility] -[id number] 16:59:59 Test Item Value Reference Range Interpretation Comments Molecular Diagnostics (Received) Yes (test code = 8400) Jael Ap Link (test code = 28004) [id number] Block Number (Qualitative) (test BLANK code = 8193) Outside Accession (Qualitative) 22:[id number] (test code = 8405) [facility] -[id number] 16:59:59 Test Item Value Reference Range Interpretation Comments Molecular Diagnostics (Received) Yes (test code = 8400) Jael Ap Link (test code = 37467) [id number] Block Number (Qualitative) (test BLANK code = 8193) Outside Accession (Qualitative) [id number] (test code = 8405) [facility] -[id number] 16:59:59 Test Item Value Reference Range Interpretation Comments Molecular Diagnostics (Received) Yes (test code = 8400) Jael Ap Link (test code = 48104) [id number] Block Number (Qualitative) (test BLANK code = 8193) Outside Accession (Qualitative) [id number] (test code = 8405) [facility] Request 2022-12-04 14:02:11 Test Item Value Reference Range Interpretation Comments Archived Material The test is to be (test code = 91167) performed on tissue from case [id number]. The case report, slides, and blocks for the cited accession were retrieved from archives. The pathologist examined the candidate H&E slide and selected the block appropriate to the specifications of the ordered molecular analysis. Unstained slides and H&E slide were prepared and forwarded to [facility] Diagnostic Laboratory where the subject molecular test will be performed. Results will be reported separately. Pathologist Signature [facility] 2022-12-04 14:02:11 Test Item Value Reference Range Interpretation Comments Archived Material The test is to be (test code = 10378) performed on tissue from case [id number]. The case report, slides, and blocks for the cited accession were retrieved from archives. The pathologist examined the candidate H&E slide and selected the block appropriate to the specifications of the ordered molecular analysis. Unstained slides and H&E slide were prepared and forwarded to [facility] where the subject molecular test will be performed. Results will be reported separately. Pathologist Signature [facility] Request 2022-12-04 14:02:11 Test Item Value Reference Range Interpretation Comments Archived Material The test is to be (test code = 01220) performed on tissue from case [id number]. The case report, slides, and blocks for the cited accession were retrieved from archives. The pathologist examined the candidate H&E slide and selected the block appropriate to the specifications of the ordered molecular analysis. Unstained slides and H&E slide were prepared and forwarded to [facility] where the subject molecular test will be performed. Results will be reported separately. Pathologist Signature [facility] Request 2022-12-04 14:02:11 Test Item Value Reference Range Interpretation Comments Archived Material The test is to be (test code = 13998) performed on tissue from case [id number]. The case report, slides, and blocks for the cited accession were retrieved from archives. The pathologist examined the candidate H&E slide and selected the block appropriate to the specifications of the ordered molecular analysis. Unstained slides and H&E slide were prepared and forwarded to [facility] where the subject molecular test will be performed. Results will be reported separately. Pathologist Signature [facility] Request 2022-12-04 14:02:11 Test Item Value Reference Range Interpretation Comments Archived Material The test is to be (test code = 58918) performed on tissue from case [id number]. The case report, slides, and blocks for the cited accession were retrieved from archives. The pathologist examined the candidate H&E slide and selected the block appropriate to the specifications of the ordered molecular analysis. Unstained slides and H&E slide were prepared and forwarded to [facility] where the subject molecular test will be performed. Results will be reported separately. Pathologist Signature [facility] Request 2022-12-04 14:02:11 Test Item Value Reference Range Interpretation Comments Archived Material The test is to be (test code = 63345) performed on tissue from case [id number]. The case report, slides, and blocks for the cited accession were retrieved from archives. The pathologist examined the candidate H&E slide and selected the block appropriate to the specifications of the ordered molecular analysis. Unstained slides and H&E slide were prepared and forwarded to [facility] where the subject molecular test will be performed. Results will be reported separately. Pathologist Signature [facility] Request 2022-12-04 14:02:11 Test Item Value Reference Range Interpretation Comments Archived Material The test is to be (test code = 96269) performed on tissue from case [id number]. The case report, slides, and blocks for the cited accession were retrieved from archives. The pathologist examined the candidate H&E slide and selected the block appropriate to the specifications of the ordered molecular analysis. Unstained slides and H&E slide were prepared and forwarded to Molecular [facility] where the subject molecular test will be performed. Results will be reported separately. [facility] 2022-12-04 14:02:11 Test Item Value Reference Range Interpretation Comments Archived Material The test is to be (test code = 05480) performed on tissue from case [id number]. The case report, slides, and blocks for the cited accession were retrieved from archives. The pathologist examined the candidate H&E slide and selected the block appropriate to the specifications of the ordered molecular analysis. Unstained slides and H&E slide were prepared and forwarded to [facility] where the subject molecular test will be performed. Results will be reported separately. [facility] Request 2022-12-04 14:02:11 Test Item Value Reference Range Interpretation Comments Archived Material The test is to be (test code = 11769) performed on tissue from case [id number]. The case report, slides, and blocks for the cited accession were retrieved from archives. The pathologist examined the candidate H&E slide and selected the block appropriate to the specifications of the ordered molecular analysis. Unstained slides and H&E slide were prepared and forwarded to [facility] where the subject molecular test will be performed. Results will be reported separately. [facility] Material [id number] 14:02:06 Test Item Value Reference Range Interpretation Comments Archived Material The test is to be (test code = 43804) performed on tissue from case [id number]. The case report, slides, and blocks for the cited accession were retrieved from archives. The pathologist examined the candidate H&E slide and selected the block appropriate to the specifications of the ordered molecular analysis. Unstained slides and H&E slide were prepared and forwarded to [facility] where the subject molecular test will be performed. Results will be reported separately. [facility] Material [id number] 14:02:06 Test Item Value Reference Range Interpretation Comments Archived Material The test is to be (test code = 01250) performed on tissue from case [id number]. The case report, slides, and blocks for the cited accession were retrieved from archives. The pathologist examined the candidate H&E slide and selected the block appropriate to the specifications of the ordered molecular analysis. Unstained slides and H&E slide were prepared and forwarded to [facility] where the subject molecular test will be performed. Results will be reported separately. [facility] [id number] 14:02:06 Test Item Value Reference Range Interpretation Comments Archived Material The test is to be (test code = 12589) performed on tissue from case [id number]. The case report, slides, and blocks for the cited accession were retrieved from archives. The pathologist examined the candidate H&E slide and selected the block appropriate to the specifications of the ordered molecular analysis. Unstained slides and H&E slide were prepared and forwarded to [facility] where the subject molecular test will be performed. Results will be reported separately. [facility] Material [id number] 14:02:06 Test Item Value Reference Range Interpretation Comments Archived Material The test is to be (test code = 23690) performed on tissue from case [id number]. The case report, slides, and blocks for the cited accession were retrieved from archives. The pathologist examined the candidate H&E slide and selected the block appropriate to the specifications of the ordered molecular analysis. Unstained slides and H&E slide were prepared and forwarded to [facility] where the subject molecular test will be performed. Results will be reported separately. [facility] Material [id number] 14:02:06 Test Item Value Reference Range Interpretation Comments Archived Material The test is to be (test code = 11842) performed on tissue from case [id number]. The case report, slides, and blocks for the cited accession were retrieved from archives. The pathologist examined the candidate H&E slide and selected the block appropriate to the specifications of the ordered molecular analysis. Unstained slides and H&E slide were prepared and forwarded to [facility] where the subject molecular test will be performed. Results will be reported separately. [facility] Material [id number] 14:02:06 Test Item Value Reference Range Interpretation Comments Archived Material The test is to be (test code = 48321) performed on tissue from case [id number]. The case report, slides, and blocks for the cited accession were retrieved from archives. The pathologist examined the candidate H&E slide and selected the block appropriate to the specifications of the ordered molecular analysis. Unstained slides and H&E slide were prepared and forwarded to [facility] where the subject molecular test will be performed. Results will be reported separately. [facility] Material [id number] 14:02:06 Test Item Value Reference Range Interpretation Comments Archived Material The test is to be (test code = 22059) performed on tissue from case [id number]. The case report, slides, and blocks for the cited accession were retrieved from archives. The pathologist examined the candidate H&E slide and selected the block appropriate to the specifications of the ordered molecular analysis. Unstained slides and H&E slide were prepared and forwarded to [facility] where the subject molecular test will be performed. Results will be reported separately. [facility] Material [id number] 14:02:06 Test Item Value Reference Range Interpretation Comments Archived Material The test is to be (test code = 95109) performed on tissue from case [id number]. The case report, slides, and blocks for the cited accession were retrieved from archives. The pathologist examined the candidate H&E slide and selected the block appropriate to the specifications of the ordered molecular analysis. Unstained slides and H&E slide were prepared and forwarded to [facility] where the subject molecular test will be performed. Results will be reported separately. [facility] Material [id number] 14:02:06 Test Item Value Reference Range Interpretation Comments Archived Material The test is to be (test code = 82205) performed on tissue from case [id number]. The case report, slides, and blocks for the cited accession were retrieved from archives. The pathologist examined the candidate H&E slide and selected the block appropriate to the specifications of the ordered molecular analysis. Unstained slides and H&E slide were prepared and forwarded to [facility] where the subject molecular test will be performed. Results will be reported separately. [facility] EGFR Mut[facility] Request 2022-12-04 14:02:01 Test Item Value Reference Range Interpretation Comments Archived Material The test is to be (test code = 61457) performed on tissue from case [id number]. The case report, slides, and blocks for the cited accession were retrieved from archives. The pathologist examined the candidate H&E slide and selected the block appropriate to the specifications of the ordered molecular analysis. Unstained slides and H&E slide were prepared and forwarded to [facility] where the subject molecular test will be performed. Results will be reported separately. [facility] EGFR [facility] Request 2022-12-04 14:02:01 Test Item Value Reference Range Interpretation Comments Archived Material The test is to be (test code = 50117) performed on tissue from case [id number]. The case report, slides, and blocks for the cited accession were retrieved from archives. The pathologist examined the candidate H&E slide and selected the block appropriate to the specifications of the ordered molecular analysis. Unstained slides and H&E slide were prepared and forwarded to [facility] where the subject molecular test will be performed. Results will be reported separately. [facility] EGFR [facility]ation [facility] Request 2022-12-04 14:02:01 Test Item Value Reference Range Interpretation Comments Archived Material The test is to be (test code = 02019) performed on tissue from case [id number]. The case report, slides, and blocks for the cited accession were retrieved from archives. The pathologist examined the candidate H&E slide and selected the block appropriate to the specifications of the ordered molecular analysis. Unstained slides and H&E slide were prepared and forwarded to [facility] where the subject molecular test will be performed. Results will be reported separately. [facility] EGFR Mutation [facility] Request 2022-12-04 14:02:01 Test Item Value Reference Range Interpretation Comments Archived Material The test is to be (test code = 00515) performed on tissue from case [id number]. The case report, slides, and blocks for the cited accession were retrieved from archives. The pathologist examined the candidate H&E slide and selected the block appropriate to the specifications of the ordered molecular analysis. Unstained slides and H&E slide were prepared and forwarded to [facility] where the subject molecular test will be performed. Results will be reported separately. [facility] EGFR Mutation [facility] Request 2022-12-04 14:02:01 Test Item Value Reference Range Interpretation Comments Archived Material The test is to be (test code = 49323) performed on tissue from case [id number]. The case report, slides, and blocks for the cited accession were retrieved from archives. The pathologist examined the candidate H&E slide and selected the block appropriate to the specifications of the ordered molecular analysis. Unstained slides and H&E slide were prepared and forwarded to [facility] where the subject molecular test will be performed. Results will be reported separately. [facility] EGFR Mutation [facility] Request 2022-12-04 14:02:01 Test Item Value Reference Range Interpretation Comments Archived Material The test is to be (test code = 81487) performed on tissue from case [id number]. The case report, slides, and blocks for the cited accession were retrieved from archives. The pathologist examined the candidate H&E slide and selected the block appropriate to the specifications of the ordered molecular analysis. Unstained slides and H&E slide were prepared and forwarded to [facility] where the subject molecular test will be performed. Results will be reported separately. [facility] EGFR Mutation [facility] Request 2022-12-04 14:02:01 Test Item Value Reference Range Interpretation Comments Archived Material The test is to be (test code = 32387) performed on tissue from case [id number]. The case report, slides, and blocks for the cited accession were retrieved from archives. The pathologist examined the candidate H&E slide and selected the block appropriate to the specifications of the ordered molecular analysis. Unstained slides and H&E slide were prepared and forwarded to [facility] where the subject molecular test will be performed. Results will be reported separately. [facility] EGFR Mutation [facility] Request 2022-12-04 14:02:01 Test Item Value Reference Range Interpretation Comments Archived Material The test is to be (test code = 17199) performed on tissue from case [id number]. The case report, slides, and blocks for the cited accession were retrieved from archives. The pathologist examined the candidate H&E slide and selected the block appropriate to the specifications of the ordered molecular analysis. Unstained slides and H&E slide were prepared and forwarded to [facility] where the subject molecular test will be performed. Results will be reported separately. [facility] EGFR Mutation [facility] Request 2022-12-04 14:02:01 Test Item Value Reference Range Interpretation Comments Archived Material The test is to be (test code = 97827) performed on tissue from case [id number]. The case report, slides, and blocks for the cited accession were retrieved from archives. The pathologist examined the candidate H&E slide and selected the block appropriate to the specifications of the ordered molecular analysis. Unstained slides and H&E slide were prepared and forwarded to [facility] where the subject molecular test will be performed. Results will be reported separately. [facility] ERBB2 Mutation Analysis Material [id number] 14:01:56 Test Item Value Reference Range Interpretation Comments Archived Material The test is to be (test code = 53691) performed on tissue from case [id number]. The case report, slides, and blocks for the cited accession were retrieved from archives. The pathologist examined the candidate H&E slide and selected the block appropriate to the specifications of the ordered molecular analysis. Unstained slides and H&E slide were prepared and forwarded to [facility] where the subject molecular test will be performed. Results will be reported separately. [facility] ERBB[facility] Material [id number] 14:01:56 Test Item Value Reference Range Interpretation Comments Archived Material The test is to be (test code = 29432) performed on tissue from case [id number]. The case report, slides, and blocks for the cited accession were retrieved from archives. The pathologist examined the candidate H&E slide and selected the block appropriate to the specifications of the ordered molecular analysis. Unstained slides and H&E slide were prepared and forwarded to [facility] where the subject molecular test will be performed. Results will be reported separately. [facility] ERBB[facility] Material [id number] 14:01:56 Test Item Value Reference Range Interpretation Comments Archived Material The test is to be (test code = 40641) performed on tissue from case [id number]. The case report, slides, and blocks for the cited accession were retrieved from archives. The pathologist examined the candidate H&E slide and selected the block appropriate to the specifications of the ordered molecular analysis. Unstained slides and H&E slide were prepared and forwarded to [facility] where the subject molecular test will be performed. Results will be reported separately. [facility] ERBB[facility] Material [id number] 14:01:56 Test Item Value Reference Range Interpretation Comments Archived Material The test is to be (test code = 61464) performed on tissue from case [id number]. The case report, slides, and blocks for the cited accession were retrieved from archives. The pathologist examined the candidate H&E slide and selected the block appropriate to the specifications of the ordered molecular analysis. Unstained slides and H&E slide were prepared and forwarded to [facility] where the subject molecular test will be performed. Results will be reported separately. [facility] ERBB[facility] Material [id number] 14:01:56 Test Item Value Reference Range Interpretation Comments Archived Material The test is to be (test code = 73812) performed on tissue from case [id number]. The case report, slides, and blocks for the cited accession were retrieved from archives. The pathologist examined the candidate H&E slide and selected the block appropriate to the specifications of the ordered molecular analysis. Unstained slides and H&E slide were prepared and forwarded to [facility] where the subject molecular test will be performed. Results will be reported separately. [facility] ERBB[facility] Mutation Analysis Material [id number] 14:01:56 Test Item Value Reference Range Interpretation Comments Archived Material The test is to be (test code = 64724) performed on tissue from case [id number]. The case report, slides, and blocks for the cited accession were retrieved from archives. The pathologist examined the candidate H&E slide and selected the block appropriate to the specifications of the ordered molecular analysis. Unstained slides and H&E slide were prepared and forwarded to [facility] where the subject molecular test will be performed. Results will be reported separately. [facility] ERBB[facility] Material [id number] 14:01:56 Test Item Value Reference Range Interpretation Comments Archived Material The test is to be (test code = 79396) performed on tissue from case [id number]. The case report, slides, and blocks for the cited accession were retrieved from archives. The pathologist examined the candidate H&E slide and selected the block appropriate to the specifications of the ordered molecular analysis. Unstained slides and H&E slide were prepared and forwarded to [facility] where the subject molecular test will be performed. Results will be reported separately. [facility] ERBB[facility] Material [id number] 14:01:56 Test Item Value Reference Range Interpretation Comments Archived Material The test is to be (test code = 75657) performed on tissue from case [id number]. The case report, slides, and blocks for the cited accession were retrieved from archives. The pathologist examined the candidate H&E slide and selected the block appropriate to the specifications of the ordered molecular analysis. Unstained slides and H&E slide were prepared and forwarded to [facility] where the subject molecular test will be performed. Results will be reported separately. [facility] ERBB[facility] Analysis Material [id number] 14:01:56 Test Item Value Reference Range Interpretation Comments Archived Material The test is to be (test code = 78711) performed on tissue from case [id number]. The case report, slides, and blocks for the cited accession were retrieved from archives. The pathologist examined the candidate H&E slide and selected the block appropriate to the specifications of the ordered molecular analysis. Unstained slides and H&E slide were prepared and forwarded to [facility] where the subject molecular test will be performed. Results will be reported separately. [facility] MTOR Mutation [facility] Request 2022-12-04 14:01:51 Test Item Value Reference Range Interpretation Comments Archived Material The test is to be (test code = 61504) performed on tissue from case [id number]. The case report, slides, and blocks for the cited accession were retrieved from archives. The pathologist examined the candidate H&E slide and selected the block appropriate to the specifications of the ordered molecular analysis. Unstained slides and H&E slide were prepared and forwarded to [facility] where the subject molecular test will be performed. Results will be reported separately. [facility] MTOR [facility] Request 2022-12-04 14:01:51 Test Item Value Reference Range Interpretation Comments Archived Material The test is to be (test code = 95010) performed on tissue from case [id number]. The case report, slides, and blocks for the cited accession were retrieved from archives. The pathologist examined the candidate H&E slide and selected the block appropriate to the specifications of the ordered molecular analysis. Unstained slides and H&E slide were prepared and forwarded to [facility] where the subject molecular test will be performed. Results will be reported separately. [facility] MTOR Mut[facility] Request 2022-12-04 14:01:51 Test Item Value Reference Range Interpretation Comments Archived Material The test is to be (test code = 27043) performed on tissue from case [id number]. The case report, slides, and blocks for the cited accession were retrieved from archives. The pathologist examined the candidate H&E slide and selected the block appropriate to the specifications of the ordered molecular analysis. Unstained slides and H&E slide were prepared and forwarded to [facility] where the subject molecular test will be performed. Results will be reported separately. [facility] MT[facility] Request 2022-12-04 14:01:51 Test Item Value Reference Range Interpretation Comments Archived Material The test is to be (test code = 39851) performed on tissue from case [id number]. The case report, slides, and blocks for the cited accession were retrieved from archives. The pathologist examined the candidate H&E slide and selected the block appropriate to the specifications of the ordered molecular analysis. Unstained slides and H&E slide were prepared and forwarded to [facility] where the subject molecular test will be performed. Results will be reported separately. [facility] MT[facility] Request 2022-12-04 14:01:51 Test Item Value Reference Range Interpretation Comments Archived Material The test is to be (test code = 69366) performed on tissue from case [id number]. The case report, slides, and blocks for the cited accession were retrieved from archives. The pathologist examined the candidate H&E slide and selected the block appropriate to the specifications of the ordered molecular analysis. Unstained slides and H&E slide were prepared and forwarded to [facility] where the subject molecular test will be performed. Results will be reported separately. [facility] MT[facility] Request 2022-12-04 14:01:51 Test Item Value Reference Range Interpretation Comments Archived Material The test is to be (test code = 31241) performed on tissue from case [id number]. The case report, slides, and blocks for the cited accession were retrieved from archives. The pathologist examined the candidate H&E slide and selected the block appropriate to the specifications of the ordered molecular analysis. Unstained slides and H&E slide were prepared and forwarded to [facility] where the subject molecular test will be performed. Results will be reported separately. [facility] MT[facility] Request 2022-12-04 14:01:51 Test Item Value Reference Range Interpretation Comments Archived Material The test is to be (test code = 29901) performed on tissue from case [id number]. The case report, slides, and blocks for the cited accession were retrieved from archives. The pathologist examined the candidate H&E slide and selected the block appropriate to the specifications of the ordered molecular analysis. Unstained slides and H&E slide were prepared and forwarded to [facility] where the subject molecular test will be performed. Results will be reported separately. [facility] 2022-12-04 14:01:51 Test Item Value Reference Range Interpretation Comments Archived Material The test is to be (test code = 75890) performed on tissue from case [id number]. The case report, slides, and blocks for the cited accession were retrieved from archives. The pathologist examined the candidate H&E slide and selected the block appropriate to the specifications of the ordered molecular analysis. Unstained slides and H&E slide were prepared and forwarded to [facility] where the subject molecular test will be performed. Results will be reported separately. [facility] 2022-12-04 14:01:51 Test Item Value Reference Range Interpretation Comments Archived Material The test is to be (test code = 47334) performed on tissue from case [id number]. The case report, slides, and blocks for the cited accession were retrieved from archives. The pathologist examined the candidate H&E slide and selected the block appropriate to the specifications of the ordered molecular analysis. Unstained slides and H&E slide were prepared and forwarded to [facility] where the subject molecular test will be performed. Results will be reported separately. [facility] Fusion [facility] Request 2022-12-04 14:01:46 Test Item Value Reference Range Interpretation Comments Archived Material The test is to be (test code = 33456) performed on tissue from case [id number]. The case report, slides, and blocks for the cited accession were retrieved from archives. The pathologist examined the candidate H&E slide and selected the block appropriate to the specifications of the ordered molecular analysis. Unstained slides and H&E slide were prepared and forwarded to [facility] where the subject molecular test will be performed. Results will be reported separately. [facility] Request 2022-12-04 14:01:46 Test Item Value Reference Range Interpretation Comments Archived Material The test is to be (test code = 86349) performed on tissue from case [id number]. The case report, slides, and blocks for the cited accession were retrieved from archives. The pathologist examined the candidate H&E slide and selected the block appropriate to the specifications of the ordered molecular analysis. Unstained slides and H&E slide were prepared and forwarded to [facility] where the subject molecular test will be performed. Results will be reported separately. [facility] 2022-12-04 14:01:46 Test Item Value Reference Range Interpretation Comments Archived Material The test is to be (test code = 04639) performed on tissue from case [id number]. The case report, slides, and blocks for the cited accession were retrieved from archives. The pathologist examined the candidate H&E slide and selected the block appropriate to the specifications of the ordered molecular analysis. Unstained slides and H&E slide were prepared and forwarded to [facility] where the subject molecular test will be performed. Results will be reported separately. [facility] Request 2022-12-04 14:01:46 Test Item Value Reference Range Interpretation Comments Archived Material The test is to be (test code = 30697) performed on tissue from case [id number]. The case report, slides, and blocks for the cited accession were retrieved from archives. The pathologist examined the candidate H&E slide and selected the block appropriate to the specifications of the ordered molecular analysis. Unstained slides and H&E slide were prepared and forwarded to [facility] where the subject molecular test will be performed. Results will be reported separately. [facility] Request 2022-12-04 14:01:46 Test Item Value Reference Range Interpretation Comments Archived Material The test is to be (test code = 19120) performed on tissue from case [id number]. The case report, slides, and blocks for the cited accession were retrieved from archives. The pathologist examined the candidate H&E slide and selected the block appropriate to the specifications of the ordered molecular analysis. Unstained slides and H&E slide were prepared and forwarded to [facility] where the subject molecular test will be performed. Results will be reported separately. [facility] Request 2022-12-04 14:01:46 Test Item Value Reference Range Interpretation Comments Archived Material The test is to be (test code = 49900) performed on tissue from case [id number]. The case report, slides, and blocks for the cited accession were retrieved from archives. The pathologist examined the candidate H&E slide and selected the block appropriate to the specifications of the ordered molecular analysis. Unstained slides and H&E slide were prepared and forwarded to [facility] where the subject molecular test will be performed. Results will be reported separately. [facility] Request 2022-12-04 14:01:46 Test Item Value Reference Range Interpretation Comments Archived Material The test is to be (test code = 90229) performed on tissue from case [id number]. The case report, slides, and blocks for the cited accession were retrieved from archives. The pathologist examined the candidate H&E slide and selected the block appropriate to the specifications of the ordered molecular analysis. Unstained slides and H&E slide were prepared and forwarded to [facility] where the subject molecular test will be performed. Results will be reported separately. [facility] Request 2022-12-04 14:01:46 Test Item Value Reference Range Interpretation Comments Archived Material The test is to be (test code = 98126) performed on tissue from case [id number]. The case report, slides, and blocks for the cited accession were retrieved from archives. The pathologist examined the candidate H&E slide and selected the block appropriate to the specifications of the ordered molecular analysis. Unstained slides and H&E slide were prepared and forwarded to [facility] where the subject molecular test will be performed. Results will be reported separately. [facility] Request 2022-12-04 14:01:46 Test Item Value Reference Range Interpretation Comments Archived Material The test is to be (test code = 69472) performed on tissue from case [id number]. The case report, slides, and blocks for the cited accession were retrieved from archives. The pathologist examined the candidate H&E slide and selected the block appropriate to the specifications of the ordered molecular analysis. Unstained slides and H&E slide were prepared and forwarded to [facility] where the subject molecular test will be performed. Results will be reported separately. [facility] Request 2022-12-04 14:01:41 Test Item Value Reference Range Interpretation Comments Archived Material The test is to be (test code = 70821) performed on tissue from case [id number]. The case report, slides, and blocks for the cited accession were retrieved from archives. The pathologist examined the candidate H&E slide and selected the block appropriate to the specifications of the ordered molecular analysis. Unstained slides and H&E slide were prepared and forwarded to [facility] where the subject molecular test will be performed. Results will be reported separately. [facility] Request 2022-12-04 14:01:41 Test Item Value Reference Range Interpretation Comments Archived Material The test is to be (test code = 14717) performed on tissue from case [id number]. The case report, slides, and blocks for the cited accession were retrieved from archives. The pathologist examined the candidate H&E slide and selected the block appropriate to the specifications of the ordered molecular analysis. Unstained slides and H&E slide were prepared and forwarded to [facility] where the subject molecular test will be performed. Results will be reported separately. [facility] Request 2022-12-04 14:01:41 Test Item Value Reference Range Interpretation Comments Archived Material The test is to be (test code = 63936) performed on tissue from case [id number]. The case report, slides, and blocks for the cited accession were retrieved from archives. The pathologist examined the candidate H&E slide and selected the block appropriate to the specifications of the ordered molecular analysis. Unstained slides and H&E slide were prepared and forwarded to [facility] where the subject molecular test will be performed. Results will be reported separately. [facility] Request 2022-12-04 14:01:41 Test Item Value Reference Range Interpretation Comments Archived Material The test is to be (test code = 51028) performed on tissue from case [id number]. The case report, slides, and blocks for the cited accession were retrieved from archives. The pathologist examined the candidate H&E slide and selected the block appropriate to the specifications of the ordered molecular analysis. Unstained slides and H&E slide were prepared and forwarded to [facility] where the subject molecular test will be performed. Results will be reported separately. [facility] Request 2022-12-04 14:01:41 Test Item Value Reference Range Interpretation Comments Archived Material The test is to be (test code = 07092) performed on tissue from case [id number]. The case report, slides, and blocks for the cited accession were retrieved from archives. The pathologist examined the candidate H&E slide and selected the block appropriate to the specifications of the ordered molecular analysis. Unstained slides and H&E slide were prepared and forwarded to [facility] where the subject molecular test will be performed. Results will be reported separately. [facility] Request 2022-12-04 14:01:41 Test Item Value Reference Range Interpretation Comments Archived Material The test is to be (test code = 30169) performed on tissue from case [id number]. The case report, slides, and blocks for the cited accession were retrieved from archives. The pathologist examined the candidate H&E slide and selected the block appropriate to the specifications of the ordered molecular analysis. Unstained slides and H&E slide were prepared and forwarded to [facility] where the subject molecular test will be performed. Results will be reported separately. [facility] Request 2022-12-04 14:01:41 Test Item Value Reference Range Interpretation Comments Archived Material The test is to be (test code = 22061) performed on tissue from case [id number]. The case report, slides, and blocks for the cited accession were retrieved from archives. The pathologist examined the candidate H&E slide and selected the block appropriate to the specifications of the ordered molecular analysis. Unstained slides and H&E slide were prepared and forwarded to [facility] where the subject molecular test will be performed. Results will be reported separately. [facility] Request 2022-12-04 14:01:41 Test Item Value Reference Range Interpretation Comments Archived Material The test is to be (test code = 80529) performed on tissue from case [id number]. The case report, slides, and blocks for the cited accession were retrieved from archives. The pathologist examined the candidate H&E slide and selected the block appropriate to the specifications of the ordered molecular analysis. Unstained slides and H&E slide were prepared and forwarded to [facility] where the subject molecular test will be performed. Results will be reported separately. [facility] Request 2022-12-04 14:01:41 Test Item Value Reference Range Interpretation Comments Archived Material The test is to be (test code = 88153) performed on tissue from case [id number]. The case report, slides, and blocks for the cited accession were retrieved from archives. The pathologist examined the candidate H&E slide and selected the block appropriate to the specifications of the ordered molecular analysis. Unstained slides and H&E slide were prepared and forwarded to [facility] where the subject molecular test will be performed. Results will be reported separately. [facility] Request 2022-12-04 14:01:36 Test Item Value Reference Range Interpretation Comments Archived Material The test is to be (test code = 15856) performed on tissue from case [id number]. The case report, slides, and blocks for the cited accession were retrieved from archives. The pathologist examined the candidate H&E slide and selected the block appropriate to the specifications of the ordered molecular analysis. Unstained slides and H&E slide were prepared and forwarded to [facility] where the subject molecular test will be performed. Results will be reported separately. [facility] Request 2022-12-04 14:01:36 Test Item Value Reference Range Interpretation Comments Archived Material The test is to be (test code = 42212) performed on tissue from case [id number]. The case report, slides, and blocks for the cited accession were retrieved from archives. The pathologist examined the candidate H&E slide and selected the block appropriate to the specifications of the ordered molecular analysis. Unstained slides and H&E slide were prepared and forwarded to [facility] where the subject molecular test will be performed. Results will be reported separately. [facility] Request 2022-12-04 14:01:36 Test Item Value Reference Range Interpretation Comments Archived Material The test is to be (test code = 49613) performed on tissue from case [id number]. The case report, slides, and blocks for the cited accession were retrieved from archives. The pathologist examined the candidate H&E slide and selected the block appropriate to the specifications of the ordered molecular analysis. Unstained slides and H&E slide were prepared and forwarded to [facility] where the subject molecular test will be performed. Results will be reported separately. [facility] Request 2022-12-04 14:01:36 Test Item Value Reference Range Interpretation Comments Archived Material The test is to be (test code = 18171) performed on tissue from case [id number]. The case report, slides, and blocks for the cited accession were retrieved from archives. The pathologist examined the candidate H&E slide and selected the block appropriate to the specifications of the ordered molecular analysis. Unstained slides and H&E slide were prepared and forwarded to [facility] where the subject molecular test will be performed. Results will be reported separately. [facility] Request 2022-12-04 14:01:36 Test Item Value Reference Range Interpretation Comments Archived Material The test is to be (test code = 62478) performed on tissue from case [id number]. The case report, slides, and blocks for the cited accession were retrieved from archives. The pathologist examined the candidate H&E slide and selected the block appropriate to the specifications of the ordered molecular analysis. Unstained slides and H&E slide were prepared and forwarded to [facility] where the subject molecular test will be performed. Results will be reported separately. [facility] Request 2022-12-04 14:01:36 Test Item Value Reference Range Interpretation Comments Archived Material The test is to be (test code = 93838) performed on tissue from case [id number]. The case report, slides, and blocks for the cited accession were retrieved from archives. The pathologist examined the candidate H&E slide and selected the block appropriate to the specifications of the ordered molecular analysis. Unstained slides and H&E slide were prepared and forwarded to [facility] where the subject molecular test will be performed. Results will be reported separately. [facility] Request 2022-12-04 14:01:36 Test Item Value Reference Range Interpretation Comments Archived Material The test is to be (test code = 97729) performed on tissue from case [id number]. The case report, slides, and blocks for the cited accession were retrieved from archives. The pathologist examined the candidate H&E slide and selected the block appropriate to the specifications of the ordered molecular analysis. Unstained slides and H&E slide were prepared and forwarded to [facility] where the subject molecular test will be performed. Results will be reported separately. [facility] Request 2022-12-04 14:01:36 Test Item Value Reference Range Interpretation Comments Archived Material The test is to be (test code = 37790) performed on tissue from case [id number]. The case report, slides, and blocks for the cited accession were retrieved from archives. The pathologist examined the candidate H&E slide and selected the block appropriate to the specifications of the ordered molecular analysis. Unstained slides and H&E slide were prepared and forwarded to [facility] where the subject molecular test will be performed. Results will be reported separately. [facility] Request 2022-12-04 14:01:36 Test Item Value Reference Range Interpretation Comments Archived Material The test is to be (test code = 44472) performed on tissue from case [id number]. The case report, slides, and blocks for the cited accession were retrieved from archives. The pathologist examined the candidate H&E slide and selected the block appropriate to the specifications of the ordered molecular analysis. Unstained slides and H&E slide were prepared and forwarded to [facility] where the subject molecular test will be performed. Results will be reported separately. [facility]ation 2022-11-27 23:08:26 Test Item Value Reference Range Interpretation Comments Materials Received (test t1nypRNdFHPhyHSlNeUp code = 9973) TQBrNNQzz5kiENKghZDt ZzEwMzNcZnRuYmpcdWMx WOGrJiVgu6rym654wBDt a7xxEBQjFqS6oBFdCNWc rIKaQ989XEQgINsww7ti t7UpVYMecLCwg6W2ANHB pqsevGx7nGtbB61ef2D1 AjdyI3hkPBUzGIOcL6Vj KZ5lQVXyVmf0TML8UBD1 YWZwWOOwP5XaXW7wFPBs nSLjEKe9r3ewbAidRBKh AOV5v5sgWUwjyoEtPZ2r ff7btJx0y7brszDwPSGw NHSlrXWUIPBcQ5KbzCoy Cj2mfAu5tSrnKncvWGK6 Tde4VI0tqj54ndj7cGux LNEzzyotSvC0LMnmQSMp oztvGFf6MPifFUHvrXie MFxtYXJncjcyMFxtYXJn qLS5XHPdyDSkL3QrIALu VMxsONKohmn6DvEaHf3t zZDcpPdsNXnsn0imp6eq rBTeGhd2UVBmXaEbRxdo JFtia3Mdt3sgLJZgdx6u DKN4wDGuxHyfb0I9dEUg PBPuhRYslbQsTBLudb03 yEEaiKSkrEScor0miiRw tBDmzFTcZQG9nWLmayNe TVRbyTUsGCOeSX2cdDJc ANSlvI0jnblnRWYlJuMt qhhpQVAfeZcymaNkHg9r oAdbXCF1XQvuQ9dfnV3r RkV5SRhvA2uxjL8aHJy3 IJkovHQ9VVKkuE4mVS0y yylnz1ltUnIwLO1pojqz b7uxAvRjUQ5hbch6v4pl SUZ0ONvuTRFuAlW1uoT4 NDBcaGVhZGVyeTcyMFxm s379YPT6WzEkXPBvf7Bu Y4KemXyqC00dbVidA72p RTKdwWrvgS2nqLovwA1n QnVxTrLeSAb9yn14DTe8 rxiibUpzGMv1zcHiGHGa JKD4IWMcjXOpHWEwV3w9 vgVdNNNkCZJ9MAXuzSKi HBXwW9j7tcMyGPA0RXg4 cnBhZGRmdDNcdHJwYWRk YjBcdHJwYWRkZmIzXHRy cMElxOTucHRklO7wzGvo RLXykMSbhP7mPLW9POTq cmgzMjBcdHJoZHJcbHRy ib48DPPmbxKntEMyuLfz gASnLCW2VZVdZVNzBFGv WVM5ZFEpVwWfytXxPVen bGJyZHJiXGJyZHJzXGJy YBR1FYPgFrZloeAnKYkm bGJyZHJsXGJyZHJzXGJy ZWH5UYOeIwYclaIfSPzc bGJyZHJyXGJyZHJzXGJy SZE9QIMlKcFwhhZzKGgs bHBhZHQxMFxjbHBhZGZ0 I2izeYAyWPHxOTykaCKh BMItI3sfyWCpALoqBENb cGFkZmwzXGNscGFkYjBc L9urDLLjOaSaM1KazRt7 MDAwXGNsdmVydGFsdFxj dNMpUKE6TZKlSSCqMFDe LOI4EHYqYyWxefPqQRlh bGJyZHJiXGJyZHJzXGJy MHN8UZVuLrTtaaIrIKnz bGJyZHJsXGJyZHJzXGJy VBV7NNPpKoFcqyEtUVlg bGJyZHJyXGJyZHJzXGJy LMG7YXUcAwRcrzMbSIaa bHBhZHQxMFxjbHBhZGZ0 J1lgvDHoHRUoHDvzoVZq YNBaY9ynsHVmKCyuTCIt cGFkZmwzXGNscGFkYjBc B6seWBCuMiJhY4EhmDu9 NjAwXGNsdmVydGFsdFxj zXTmORT7JTRmHVUmSRIj UUG1PPBvKdJtaeZdGBuk bGJyZHJiXGJyZHJzXGJy CBZ1AYClXoSooiVxZGgz bGJyZHJsXGJyZHJzXGJy GSE1RVNtMjMuolDaUHyb bGJyZHJyXGJyZHJzXGJy AHF3UAGsJmLiotNyHFkp bHBhZHQxMFxjbHBhZGZ0 P6qluUKiWVWzRUtyoOPk TWNfW9grtNRaYIdiYQPc cGFkZmwzXGNscGFkYjBc N4rjALZgSaSiU4NflCm8 ZfZzSZOynvZeeC26Ffyd m3DhCVZfDZJ8EYcnEJdu bFxwbGFpblxmMVxmczIw GJbtignsIBNbAEmnN4jm ZsCpKTRmvEztHAban8Ui XGYxXGNmMlxmczIwXGIg MUQrXUFzbX4uPgiiF5Gi xA4kPGdzIhwuK7rhPHYb y4TpvM1oTEgpoTCmarqd MVxmczIwXGxhbmcxMDMz WXdmN0klGrJjGRQesEdt QFopl9JoEORvJFWuJweu dkZhZZw5trPpVZPlyWpm bNRuXKmuwtEmdNdgw1We oqUvpPraONVdICl5hiFy gsvbqWh3wWXwwNgkFMOx pWjerP0bYaNhGySlILnm bGFpblxmMVxmczIwXGxh vkuvCJUoIQlcG1unYpNu POCbsUugUHiqr0UwOCUf YIOrKrojcrFnEPIlN23u bGVjdGVkXHBsYWluXGYx XGZzMjBcbGFuZzEwMzNc aGljaFxmMVxkYmNoXGYx MXzqS6yjJrKuH3BuWZYz RtNhiRFaC5xyG5CcnKqq YXJkXGludGJsXHNzcGFy RRU5lYRdtdYqpOYnmXIl NCExMVoiTIF2jGKangqb nGAmmnfbBKhwvxM5RCWi YWluXGYxXGZzMjBcbGFu ZzEwMzNcaGljaFxmMVxk WjWnTXKhIFumZ7kdNuPd L5VbIRMhLsSdOyUUAUNg aXZlZFxwbGFpblxmMVxm czIwXGxhbmcxMDMzXGhp X8hkOxToWPNemTvbTBeq j4PgCOEiGTYjZtngheJd OPr1ebAuOQZtvYiluL24 Okycxw08PCIsi0nqEYTj V5MelWDsKYMxaITnPAbr MDhcdHJwYWRkZmwzXHRy cGFkZHIxMDhcdHJwYWRk ZnIzXHRycGFkZHQwXHRy wSYtGOV3M0t4oiIkIZXa YNp5utOqMJPrAvVadFMr SEO5XAa3GhldkgE8bDUx O8f2EztoulOfSRokbKZe qd13MLWoonKhaLZeoNxb tYPrVOQ2JJRhMMRgLBEr OXF3CFHpJyEjbyEeKVjl bGJyZHJiXGJyZHJzXGJy ZPI9TTLnMbIgtxXhLFvf bGJyZHJsXGJyZHJzXGJy KQU9GNJiNwVphpUkDEgp bGJyZHJyXGJyZHJzXGJy BUM6ELJbPzVeghRhGVai bHBhZHQxMFxjbHBhZGZ0 B7wrmSPcGXNeEBpfqZCn QUAlO2snsEYpILxhMUZo cGFkZmwzXGNscGFkYjBc F2ciGLTxGpUmV3JaaWd3 MDAwXGNsdmVydGFsdFxj tTQmEQF0ZRMoLFCmBCHf APT7EGSyQqZunuBaGDqx bGJyZHJiXGJyZHJzXGJy IOT2TMQzRdZpzvLvUUmh bGJyZHJsXGJyZHJzXGJy HLK7KEFqOaFnnjCtLMkc bGJyZHJyXGJyZHJzXGJy GJX5DZYjMeVzmuUnYAaj bHBhZHQxMFxjbHBhZGZ0 X4sxwJQbLNBsXNtigLTq WTWbO6hvmJFdFSmtYSQb cGFkZmwzXGNscGFkYjBc O8faWGYvUiBsR3VrdBe9 NjAwXGNsdmVydGFsdFxj xYXjFKT3AWMyXQSgAQLa HTE9HVQnBbKmduHjNLuo bGJyZHJiXGJyZHJzXGJy MEA2XTIkUhFxmtUeNRsx bGJyZHJsXGJyZHJzXGJy OBJ1ZRYtOhDnvlNaFHde bGJyZHJyXGJyZHJzXGJy XRX9XGAoUyHyezLrMVpn bHBhZHQxMFxjbHBhZGZ0 N6ihzSCtIRKmVPedtJIo ICVdD5qgtLHsYHjdCSOb cGFkZmwzXGNscGFkYjBc O9kqXWCyKoKiE1LiyKt0 TiFtRCUmkmJlhS11Ooei o4WdEFHiFKN3DFbxBRnr bFxwbGFpblxmMFxmczI0 XHBsYWluXGYxXGZzMjBc bGFuZzEwMzNcaGljaFxm ZFfeFlBtKPIhAZerS1df IhJyI0ReHNTbRhQrSL1z XvD6XJCfNKpxVIQ4UBHX LJHkFRXFO0EUMkkrEAAZ A5YltShmgH8zDsYnZpZz NOdkXV4oFGIsF0fdaXYu BFLnYREfS5qfZiPbtA0o aFxmMVxjZjJcZnMyMFxs dHJjaFxjZWxsXHBhcmRc sT89Wleoj5MnTOUfGYR4 MFxzMFxxbFxwbGFpblxm KXhldlJ8OVMnUUkbHZRp XGZzMjBcbGFuZzEwMzNc aGljaFxmMVxkYmNoXGYx PTqaF9yeWyFiY5AhNBCg MjAgMTIvMTYvMjAyMlxw bGFpblxmMVxmczIwXGxh vnzcZVHnNHoyI5nwCbIu ZQHknJtmMResf6RfCTZv GDReEityokVjJEf3hzJk XGNlbGxccGFyZFxpbnRi qXyql1CqudGvlMzeZIOf XHFsXHBsYWluXGYwXGZz RtSftTbgzV3wQtWpUcSp BNywAJ0vGRHnV6opdRZm CSPdBECeN7iqVcDciE3l aFxmMVxjZjJcZnMyMCAx MoL4CzLeRiLvkEaoeM3p KbGjYqFwNJxiDX0dHIHi X4ahpLYhSMPaJKPoM6oa LzEqoM1ixYdtAEmxRmSw ZnMyMFxsdHJjaFxjZWxs NMgaoSYtHSVrm5tkWOIe EEHemEIyEPG8aEKhafHr gBpygDfbyM9eQcQnZwBs NFxwbGFpblxmMVxmczIw PBempufmHSZxWYqtN5ou AlBbFUHtdBipUCkmf3Oq XGYxXGZzMjBccGFyfQ== Addendum 1 (test code = w1gkvIFlONHwgNYkWPJj 37) AjzrkbVbPYXxvACcR1Ku uhrpSDfoFU1aMB7woBmk bRJaoNPuZUHzQeJxa1nj x387qAHgr8omUMGKIXnx FNHCEEp0r6mtLVGMzxqj vKn0hReqI39lx5N7Ixvn Z80ccLHmEOK5NAHbWDWr dZGfVXFhEPJ0CIGrbENi Y6bkWQWmDA1fcxauQHmw HXloFSEnjLP2XCSfjGJy A9KaQOCrRFdzCOGxlik3 BrKlHh0pjJTdfKqhPGxp YXJkXHBsYWluXGYxXGZz MjAgQXQgdGhlIHJlcXVl e1Wcn2HvrOarRKLgVNG0 hC1tOBFxsZKuU0ytyaH9 fILsZa1zwT29lF8vAUP2 gWDnENUgu6KoJKWwRAJq h1LeVZIaEK4fSFkwjWWt bOMoyVKgMWU2IH2SXWLw OGRow71zUkSwdIReIBRo sgOwgOHfOIZoWQX4sB4a ciBjZWxscyBhcmUgbmVn FMJggqOqZw3nYRpjwkCn BAKkZJTyiQLopL19uf7c sLG3m3ZaOR8kN3IqLJQd QHx6g9viKxYdeQIzNSFy chDolODmIZIfZMQ0yX3i emZcZVgdnwTjrsBmbW6e aXRpdmUgIGZvciBjbGVh yhAzPW8LMHEHCEAyNVB5 OAYpIEIbiFCuwX61yt3d mYN2l6PlIN8aM5OwWIOr XKp6j4osNdNvyWYdWTPj umHRAK1CTGDmM7sywyZl MjJDMywgRGFrbyBQaGFy yJC0UQXVg15diS8xGHYT z7NbnIe2XMWYT33yNUOp W2AYQHcbtPPbbONatpT7 aGFuIDFccGFyXHBhclxp QFLnCFBcb5E9KCtiTk2j vGJ3cU5zQQMiPMW7YLUe aXMgYXNzYXkgaXMgbWFu vZQcO6S7ftUgMVA2HLAb aWxlbnQgRGFrbyBhbmQg qVMjarTcFK4tke0tbP0f IUddIB75gJ4DNQ0NIIrk A7rcmwBoPsVBPo6vSNKw rROuaQOrGi2ggKEhWB6f KQTgjx2wuUsyFUXkrUEy IHBhcmFmZmluLWVtYmVk NPDxLNZkc2C2VXJ3v9hk NyLpwqTWL9moHC22TLOm g32bTJJ2c1V7DNjbMSYv KI4tQFOykUbwPQLuRxMm DMRqBOD9UBH7nX2cSBsh bPusHRWpn2YoM6ossCFp BMX4DHGtCLRaII48OoVy qURaLSYvMPq5QAbmJDZh eFKhsyCdQJSuzeL7t0Yg FELfNIPgz71hME1sq31f DZkfI83mb0DhLoVqn9Sm x1GoX8ztmKChnUhwdvDj jQEwGO9cGFFdqiHriG6t gUXuf2XsfVvlUQUiF08d UcgqLZMovZ0rtBIeyiJg g4EtasVqNAAQQzympEXb Y2TaY9HcUMVtJOInziC0 sPZzahIhBmUfYE0oZMUU AAcqJOO3ZKexrP1hZCHv gQfiWKx2hXKhkSCctW59 SXNgynTtkAOss8QgF5Xh hRAwt6uav6okUlLhAC7i ldKhc2BpICK9OZcskI3o LG2wKEIwoSYeymZxopQo eLy9XNr0fAIxk4D8nTAz UUAiDPWmNFWyw6ZnMEtq dgCbqsF6vNEytPLly5Qi TMSvACPxbX28vB3zMF5t sRVpNB5gpPMxz5CoA3a4 v7XeHXRntKRke5LbqE1d xgymb4CgPD48SNpfmRAb s0c8pQgjZCs0wVIaBMYn yMF1bYRpgO63NIodmwTg HaHiQB5oUSMyORYyJXGt yfLfj5c1PXK9uW3xrmRv ZWxscywgbXVsdGlwbGll ZCBieSAxMDAuIFRoZSBt SGkleEIfRPTan1BvXCtf EHUpKmguPEVcQUVrN6JI EEYtIN1tbNCuNIohFLSc clxwYXJkXHBhcn0= Diagnosis (test code = l7wgkWCbPLXhhWYwTQZp 34) CouzqzHlPSNuwDFrG0Om kcxeYHbcXL9fJI1coCvz jEJptWVkPRUvMzCso2oj s853tFFek7dsZUOAlsxu dEh2eYsnH70je9X0Erdx X6igEDKfBWvbZDGeBYhs iHFcJDh0ZWUbuUUjtsBm CtPyHAEpaTIehKR1UJKy GA7unavnJMoaQByzGCOf pnZ9BSZckLObT2NnTKIv TH7bwpslNKZ0ALemIZEi ASD3EwIpGXXse8Itfsv1 MjBccGFyZFxwbGFpblxm czIwXGNmMSBPdXRzaWRl EYiwMalRHuM2PlMqHHbb G0GaJJCeXwoRL9mXYCBn RYJGCigqO77njODkbQAc CR8fLYMzGyM5NeBjVmFo CychCBTaO0PbKGOgujbv kRtdSHebtY45AjJxMxAo x9GkZSZ1kqfiHYEbt6Pk kZfwkBFoYIbkXmX9VMwq pR74BtHpeZfzSzE0XJES EOHZJ3aXFFEOL3MCTtWM ZLGXQC8TQWPyUEWEIZUE OIZSXd6eZKtWFILvKXQt H55yaVJesYkqZUQbkABi XGxpMFxmaTBcbGluMCBN RFcvRkxaIFxwYXJ9 Comment (test code = w0jiyNQhVZLrbZKlTGDn 9835) SfdfscGcBLKcsULqU4Es tulfGRftIO1gKK4jkQjk cRUkiJGlHMWtLcFdp6vo n156cAQpz9vcUGUTvkoo dHp4vUkfS14su0L1Ymbt R90ebYXmGAZ3AFYbRQUo xGZkALIgIJD3AQYwbBGe T0wnHVHwHW3xftvhQSis AAowAVAqoWU7AUWdhPXn H1SgBLFhCDqkFHRbprk2 GqIgUx6khHDlcLmqFZze YXJkXHBsYWluXGZzMjAg R7BkfTw4oLLhWGdyiEUp p6msl2DpA2sxtKioQLbc g7BggW4hGACmkjXrxm5z ZCBieSByZWZlcnJpbmcg tT4tgAz3fIDsy32wo5jn zsW7jTO2XOOIXqWjcRkf bGlnaHRzIHRoZSBlcGl0 aGVsaWFsIGNlbGxzLCBh bmQgcDYzIGFuZCBwNDAg mDgoeJzdN4a6yqG8sRYw bXlvZXBpdGhlbGlhbCBj YYjffe3hXFZtJIQtb7Ih cI3bm9e4OETgYYZmgL95 wx5xiWXvr3H8oQByeWMf g0JtpE3khKl2LLAmDnI3 rGecPWJwDSFhsMNsF5W7 wO4sMmJvgXMzyD== Biomarker Block(s) (test x6jgiJJfGOTueXMrDDVq code = 9841) MnhzzwJxGKHpkNGkJ8Pb jkncYIhsDU0yXQ0owTic qNGeaCCwSXTkElDqi1fr p159dGNpi2tcYNQSkjgy gXl1lFkrL52wb7G8Vtwk Q0cpQUKnQLcvFHLdXImq kLXxLBu1CZVyzOUfdxPu LwCnOCEupOBhrPY1TUGp MR1bsrvhIDswSRymZTNt ikE6MHIfhQOsU0KxEBDi QD9ytpxaFNR3WTyhJZYc DCD4JpBdBRUgt9Fvqmn4 MjBccGFyZFxwbGFpblxm anAdKXM3uT8dQJCqw1Ql OiAgXGNmMSAyMjpJUzE4 NzBccGFyfQ== Disclaimer (test code = i3ozcVXwSKZecFQhGwMv 9844) VBNmPQGzi3onVPEupZGu ZzEwMzNcZnRuYmpcdWMx YSBnQnExs6dxs394wKGu o9uaWLTuAfU9fHGpCCQa mRHnP111BHCxNDiqj1nd n7SvIRTlsCAos2C5PWAA ldhkaQn3eLptE18zk2H6 DhknR9rgQPLzRMDsJ5Xw VP9dHFOrQas8AMU2HRF3 ZAPuQTIhF7EbFA0eNMBf mWCxIOj5q8vbhBxgRVKu IYM8s9cxWCapteTuSD3z de8luCu3l9wagkPeGYJf GJBtfIJRFVFwG4JexPmq Uv0kjEe5fOjwEotgXKO4 Bas0FJ4ixv18rhm0yQru DOBmrxoyPbK5JUfiCFVe wsjzLRf1WZngYSFcpYX2 JSXeyMBuP1IsTHKpXW9v kxu4FYG7XBggTADfUxL9 NDBcaGVhZGVyeTcyMFxm o609XPH1WaZqBW1xZ4Jp f5N3qF9hnVBtZXYciZDo FjGwALZrkr1ziRSeKFtt s5YgANT4dlJ2tSHlgKQg XVXsVQ80Dmdhy9WyXqsc VCE4MIRuplLks5Roj2da DaMcjqYxQ4rjB1XmTPBu LOIhGTBnKhVlwiEdz3Mh c8GyzVTvyAf5d1bjGCTd MGYszFoxi8avEMH1FGEk J8T1dIAuq6qfPIdxZEQt uRN1ldJ0DCMgbRPlP3Jo aI3iNWDiOM4vhxk6e7xq UDJ0GPucTSOpOkB7gwZ3 NDBcaGVhZGVyeTcyMFxm u275RRC4SrEtGDLvr5Of O7AjcWopY22nkRgsI33g BUVnvFbooH4xoWleaB2z ZjBcZnMyNFxxbFxwbGFp ddlyXAiqphO7QHrtydzo LVViRRppH5tpYnGmMCWw eJkmQZcqp8DlGJKzDCKz YbyrbdS9CDMXf47xIYXj g7PzGYMrnE8meYNiGSsj qzVhgUA4EUegmrQnTiTl yeQeJXEgvJ7bGFGfCZ3r QJUvhzWdxn5iyzPgCCJd EHAkJ2CrsqfqhTzbamKj DUJldt2asvDsCTS1DOJW GP5HWMQmGKPoo14uABIo hSqasO2toQRprdQiWPSk g5ZraV8ctWDDKDNzK8pp AN1aJBrva9TrvIKnuUXs bGK8BVLot9VkXkEmadDx oDLxdWLuC0MlrTzaQ5zw SHHoLHXcrbOloCMyb0Ls LUJdsID1yMWwSN9QViRQ m14jKRHeUIXSmuPyAJOr eXwnvUF3xsR8rU0xGhSE ZiBhcHBsaWNhYmxlLCBj s356wg6qgtR4BXZhCOHh pgntt6JhDVQqZAWqsU08 VWHxMNRnmy6uekzaxRJk boGjT2Yfxlp7pW9xYUEo YWluXGYxXGZzMjJcbGFu ZzEwMzNcaGljaFxmMVxk NzVeWKKrZKeiA9cvQxDu ZnMyMlxwYXJ9 [facility] Interpretation 2022-11-27 23:08:26 Test Item Value Reference Range Interpretation Comments Materials Received (test z8uwdNOzEBClmRYcTbMr code = 9973) UVNaLVCdq7aoCAIdbNOz ZzEwMzNcZnRuYmpcdWMx MDMbEiDsi4riv617rVTl z8mfLCAyUkM8wNNgTPKe lRJnR655EMFdAOxis2ur m8GoVLVbvQSqs5M3ZWKM xcntvOx1oZcmS62qq2Y1 HhioN4lqLHHeMVKaQ1Sg XW9rYNFzUfq3OHJ2OKL1 EQKjXJCgP6ThFA3qABSb uUZdKZr1n1iioHeyBHYn EHH9g6lfWCghdhGoCT2p qg6gwBr9j0dyffKfEEFd WWAjpGXXERPpH8XprIdm Bl7jqWi2gQvhSgdoASH1 Gop7MV0sgt74zes2jUym YZWdabniFfT8UTnqHAWf outqIDy5OIcbVFKkkHzc MFxtYXJncjcyMFxtYXJn cMP9FVUqjSCvB7CyCKHn UZvoXAPeozb3WpCyKc4w cSCdsVxhTMjux2ycq2va dZStPqm2HMBnQtAiWfho MRnmy9Iku5bgEWXhdy9t RAZ7bIHiyDixx9Y8kZQe MIWbyLBtciDiRCCmvm01 mPMilRSzeHWlux3paqDr iTJzaVLrFTC0iBMbpzHu JPTjmDGuRCWwUD6dkPVn ZDPghO1qcxbgNUFuLeNz myszYOAesXujytUiKr9y iOqrOFP0FHxoY0uehK1o OiN5KXqhZ6ixoH3rSOj0 QLfaeCN8UYElvH8fVW4n lkoxs3hvNhQtDA0ceoub g0arFeKrKV6pwaz2q6zt MKE6NIwiKPVaUcY5mwU9 NDBcaGVhZGVyeTcyMFxm b639DBI6TdZwWNJtb2Fw Z9IsmNefH14jsNbtX03d JNJxxAcwgJ5mkBrprO6t PoJmVdYrXZu4sd73TNq1 uheuqZfrSNt4elQfZMAi SAT3FXJajJNxHAFpN2i6 aoTiFPJqNUK4ZYGzrKCw XGGsQ6v5atTsRSQ4ASf1 cnBhZGRmdDNcdHJwYWRk YjBcdHJwYWRkZmIzXHRy fYSceOAymNFtwZ7omZhp YUVufQOqoY5nKKP1EEDs cmgzMjBcdHJoZHJcbHRy iq91JYTpcrFvrQQsbXur xPNaJJO0KJRbJKZgHNIa FDZ0REHyAnKigqNiFVpg bGJyZHJiXGJyZHJzXGJy XKZ8ZVIqGuIwlhSuQGvs bGJyZHJsXGJyZHJzXGJy UIQ6OVLjKxWmslOhCGla bGJyZHJyXGJyZHJzXGJy CJC0ZLAkXdMlkiZyAKyp bHBhZHQxMFxjbHBhZGZ0 E5rtlXBgXINgYFycjVYl DCMeE1pvfPNyIZavVPEk cGFkZmwzXGNscGFkYjBc G0juYAXlDyYdY5XccKx5 MDAwXGNsdmVydGFsdFxj yYGsWMJ9QNHzLTMgCSCv DMO7APJtBdPlgoZsEBog bGJyZHJiXGJyZHJzXGJy DMM0TGRoAsYjiyRuLLov bGJyZHJsXGJyZHJzXGJy OOI7BVLqUjUzhiUeEUos bGJyZHJyXGJyZHJzXGJy FWY3JMPrTiIwlvCxZVoq bHBhZHQxMFxjbHBhZGZ0 O7yptHYeZMVyKRdbsYFh ETXqQ7mmiZHjLNmrTICu cGFkZmwzXGNscGFkYjBc X2vbHSDuQiSyH1UiwXl0 NjAwXGNsdmVydGFsdFxj cRDnLSM7BJFjRXVxZCIx STM6IPWeUtExwtRpNWov bGJyZHJiXGJyZHJzXGJy VJX7GWUdNbJwhtYtARbj bGJyZHJsXGJyZHJzXGJy RQN7QGRvFhGbuqCvZMfm bGJyZHJyXGJyZHJzXGJy QJT0ZENyMpOglfXxVGnb bHBhZHQxMFxjbHBhZGZ0 J0kneCTqMAXfLIhyiCUu SBCyD0pkdGBeYMgoOYRx cGFkZmwzXGNscGFkYjBc X2woRDKlKhSuX7JelFt0 LnVxSQCiwxOlzN27Aper x8StGSXuJIY3ZSdmUPvd bFxwbGFpblxmMVxmczIw DTlmifxzEBTsACwdN5jp ZtVaNYCqsRuwYDyva8Pj XGYxXGNmMlxmczIwXGIg JBUmLFOkcC1vUdvjB8Gi yJ4bZAskUfwkY3aqTKVb c1NbzI6bILymmQIjtxrl MVxmczIwXGxhbmcxMDMz AHooQ9rbFkVvNLYfyXah SJpdl6EvCKIlRXDdIqis fgFbMNd8myEhNKVyeUxb xBAhASesupAieEfvz6Wa gsHpjKpnWADgDWe6wbLp xrqlyWh3kPJscDjjFMAp cSuokH0eNgIiOgNwASqp bGFpblxmMVxmczIwXGxh icjuHGDiYBnjI2ulSnZa BSNmjXwyHEvqz7HmYMHw TFKmRxxapcIyZSDdY34f bGVjdGVkXHBsYWluXGYx XGZzMjBcbGFuZzEwMzNc aGljaFxmMVxkYmNoXGYx VKzvN5mvYrNuR3StIYSx BqLlwEKaQ6dpK4JxjFeb YXJkXGludGJsXHNzcGFy XMC1mWDlyyUfeCPlsBGh KHLyUPnvMTD2qNFljcxn zAPapdunWKfylwA6NBGv YWluXGYxXGZzMjBcbGFu ZzEwMzNcaGljaFxmMVxk LfMlJNCyKRbpH7dbJoGg S9ZsRLUrWxQoGtAZFMQl aXZlZFxwbGFpblxmMVxm czIwXGxhbmcxMDMzXGhp E6qgUqRxVNYtbLpkEEwg q0DoEOApKFYsTimqhvGb ARz9rmRoXUDjgUndoV10 Ahqizl66HENwo3rcQDLz D4BtgSVdBHAscSRoERdh MDhcdHJwYWRkZmwzXHRy cGFkZHIxMDhcdHJwYWRk ZnIzXHRycGFkZHQwXHRy wYPhRSU5W4u5hvLuQWQr KBb4hcRaENIwAdWioKZb NIR1BZl2ZnmyrwN0eRBk X3a7HzrakxLdQVlkzTTg uq15XEHyzcLbwCWqbBzb qDOmZAL8QPXrKYUoTSAq FVB4KCWmFxNyhcDhTSyf bGJyZHJiXGJyZHJzXGJy GKF7JVDrGoNxtyUwMBhz bGJyZHJsXGJyZHJzXGJy VWG5PECiIsBhskYpRJvn bGJyZHJyXGJyZHJzXGJy NWF8QDEnWwOnvrBwMCdy bHBhZHQxMFxjbHBhZGZ0 N5filDLpMZFhNVfefFEy VGIaH4cpaKYjIOyjHDGw cGFkZmwzXGNscGFkYjBc Y9kzEZOuMzMoH0ZfrJk3 MDAwXGNsdmVydGFsdFxj yIYsGAC7DCFeGQEsMZPa RKT9TBAyEoDuvrOdAVlx bGJyZHJiXGJyZHJzXGJy XDK2PGQnSnJbipHkJDzt bGJyZHJsXGJyZHJzXGJy ERU0PHNiIcIniqWcZYpb bGJyZHJyXGJyZHJzXGJy GTV3CUZnNxXwdpKfXHrv bHBhZHQxMFxjbHBhZGZ0 L9sjrLZcHTUeOYgcvSVr SZVsW4raiRNcKYlyARFo cGFkZmwzXGNscGFkYjBc V3tcQYBwOwCdC2QsnEz0 NjAwXGNsdmVydGFsdFxj mIFrSLP3HPAoFGCtXBLv SDP5NUXlHvYqjyCgAUwk bGJyZHJiXGJyZHJzXGJy CQQ6SAExFhAhgxIuSIny bGJyZHJsXGJyZHJzXGJy MNI7EGAaNcVarcRhRWmr bGJyZHJyXGJyZHJzXGJy RRF8QTJkJhAjahNyTZwg bHBhZHQxMFxjbHBhZGZ0 P3zdqSDlLJZqSGjfgLHt QWVrY5wjtFTdXUziBMGc cGFkZmwzXGNscGFkYjBc L3naOHKnMhHlK9KzeBt3 FwFnCCQucmFkoG80Wxks x3CoASQkEAW8PJyuGTxh bFxwbGFpblxmMFxmczI0 XHBsYWluXGYxXGZzMjBc bGFuZzEwMzNcaGljaFxm WSbpUnIlBYRbBNklC2sg FeTgK5BcBFOxDaSwIH7t LtH0WGZqPJhdDTI9FZTS LEFmKKUQZ6BOUtslNEGG X0TfaWdnfH3kUvSpYqHs ABtwRV7pQSPhS0zbbFGx FHVdWIHnG2ijXgBzmW6x aFxmMVxjZjJcZnMyMFxs dHJjaFxjZWxsXHBhcmRc nK77Ebmzu5QcNHPcVGI2 MFxzMFxxbFxwbGFpblxm FWsiyoZ2JKZcOGfuQZNw XGZzMjBcbGFuZzEwMzNc aGljaFxmMVxkYmNoXGYx HTkeB2ehHpEnV0BoIIZd MjAgMTIvMTYvMjAyMlxw bGFpblxmMVxmczIwXGxh ghlaTCKpOZubP9vmQbPg KBRzhDfrVLxth0GnMYUv GDLiTuozdvQyDFp8wfTr XGNlbGxccGFyZFxpbnRi rBvpw7GaocOjkFubNUYg XHFsXHBsYWluXGYwXGZz HmJihJljfG4kLiBtNeIr AMukMC3uBQRoU7pffVHu WAKeSEMpR2kkOgAylE0f aFxmMVxjZjJcZnMyMCAx AhX0NqQrHgTglAievE8e XwXqUlEpTIxvQH5fDGGv O4qpzEKvFQXnTXDlS1xi ZiKsjD5plItvXEwzPkSd ZnMyMFxsdHJjaFxjZWxs LGeemPGcKVUrq1wxOCFt SAOssRTmYGE4sHVsxqKq eWgzqNzagM7cUsQsUcXo NFxwbGFpblxmMVxmczIw NGmcaxzdQLPcVWjxZ2bh ZwLvHCKduZynRBmev3Zn XGYxXGZzMjBccGFyfQ== Addendum 1 (test code = m3wwlAHzOWRruAXhCLKr 37) MkmgqfAxYRUzrLHmG2Fi txizEKoqEP5dCT4zwNgm vGCyqFJdOUStMaKjw3uy a495iCQsn6oiNRBXOAnu SQECCDz4l1ysZHXIcwsv zAo6zNdpU08co7U6Vgnv H30orSGuIKD8KKCgSAKu bKSbKXXoUBV6VMGwtBQh N5vkBWDqNP8jxkwoTHvs XAqoOAFnvDX5LSWnnYWz G8ZfCOIqVWhxVAPwsxt6 WoTaUr9gtGSzuPtlQYkl YXJkXHBsYWluXGYxXGZz MjAgQXQgdGhlIHJlcXVl y8Wob1BatTquQNHtDWQ9 xW5jYPGuoKLjZ9iwuiX2 zBQsIc3ecM60uX1sUYN6 cGKaQOGrj5DzRPUcBKGo f2PpPOUxAP3xPBiygIXe zFEntKWdXTG7GK4SGYIi QKEkc04nPbTnkRTvAGZc fpPifAIlGGOwAEY2jG1i ciBjZWxscyBhcmUgbmVn OYUgpnWyBm4vUEfjjfSc JHJfCKXkpUEbwC57rf0h jGG1y2YdEN6uI4JrKYMc VZk7y7egYrXayKSfGBDv itDywLLsZULaSKR1gT8w egJmVWphyxFpniFryN1z aXRpdmUgIGZvciBjbGVh tvViPI9UDZFDZWBbVCP1 CXIkBUKmbHUbsP31eb3p hZS6j4IoBN0oP3HkVCOz IZs4x0dfUnNrrYCjYZNp nrWJMQ9CAPRwT5fjygRu MjJDMywgRGFrbyBQaGFy gTZ9PZAZk90nbS2iXVOF s7QqyBp9RWHYX53nXFOy R6MUXWswzKToiCIqnyA8 aGFuIDFccGFyXHBhclxp NARgIOGkp9X6OIwtUd9y iDR7nW0rXFSzAXS2DVWf aXMgYXNzYXkgaXMgbWFu vGHrE9F6ctXiYDS4ILNw aWxlbnQgRGFrbyBhbmQg aDVohkJoFX8kfh0vjZ5u JSkqHW55pJ1RHM2IWDzn T1wdgaTcFpBDRe1yTKMm bDHwaRQcVn5jyXOoKZ9i TLTspt4usWvyGPIxdUDx IHBhcmFmZmluLWVtYmVk DILgZBBcn9C3JEN9o6lt WpRqwfOLK8ndWL94GQYh e46lHKM9m2Q7EXhcQTWj JB2aEFYsoPpaXCOsOaWk BDKeLEQ7QDA5iL3jWQru gAiaKKRkq8CdW3gyySGp GXU7XNZhLFKzQN44NdOn rZZwZRQgADn5WYvkNWTg nKPwvbZsUYCvqaE2d1Tz FYJuWIYvq79kHK5xh97r QEdzL66ck2WkTrAxu2Vo v0IjP3jmsOKclTdwlrIs oFFkZY1lZXMfkmXdbC5z aYGng6KiwOrqGDBoO84h KugdLMSnbD5moXDbroEl i4OsfwYnJMLBGcjaiYId U0OiK1EsNJOdZLAzdeZ6 yOUkghSaAwOwGT7vJTVM NXiaFAZ0BAggeE5hMOIy dPabXXr4nEPqrHWsiP01 EYXlzfLphPTee7FuE6Tu kALjr2xqq2gnPmPpEZ3c usEly1ViWLC4QXkzsB2q DU0vELFupNSntrNuwvKg vFh1WTe7bSFno0E8qNPx POUcTHFkZMWkl8GmMApa jmDgzaH5jUJtlMCgq6Kt YABkFRZygK56eZ3wHR3s gBXtEO5dtBGrh0ZzM0f7 y0YvZDEuqZJue4DkzU2r mhvpb4XdYO01KNpieFNq d8s9tQomZVj4tLJkBUIv bTK2hXNhwV17EVjrajOl CdFoOW2wZCOwNQFeDEJx xyYjx5m1BEN7rT3hrtJz ZWxscywgbXVsdGlwbGll ZCBieSAxMDAuIFRoZSBt AVkrlROnXPTyj3VuLOsv AUKsVgtvBKGzAEUsP8MK MNLcFS4xhEToHQyyAYIy clxwYXJkXHBhcn0= Diagnosis (test code = z8wxdISwTOLjeXCgWWJp 34) HylngsMnUAVbfPIcL0Db nhfpWXbzDC8dAT4npUwk kDJoqZIuEWQtYxPom4vh b393oYPwl5teEVPRrmbv sSw2sIvyF89ey5X4Ntei P5sgJXCgVWarQARkARsx qQWvJFk1DVOneKOtjkAj KgWxWSXpzXHcqZS2HXAe EI0jdnesPSsgQClfQNIc yvH6SLPwoECbQ0VuEXJj OB2ssleiZII3LNovJCKy NAQ0BeHkDVChs5Olshr2 MjBccGFyZFxwbGFpblxm czIwXGNmMSBPdXRzaWRl TDpqCdcLMtG6HaTvYGek A3JxTVEjEhkUW4mDTUXe IHZWOtmzO19eaAVrpXQs AP2nNWEwUrQ3NbPhLxSq YzohYXXvE8PmEBLrikxz rJppEUcpjM77LvQwTmWi h0UcZQG0nnnpSYSth9Km rEmxdQKjTXpeHaC2IJhw gN28LsGymWpeAeW8CHIU KVOUQ4fIFQXOL0HCPxQS SBPRZS9SKFYyOCYPRNIF UFUEDk8iIWjHGFZgHDOt S55yeWSqzJhzCDWegZDc XGxpMFxmaTBcbGluMCBN RFcvRkxaIFxwYXJ9 Comment (test code = z4pufMTcOMQgfGHrHTPe 9835) QwvavmAxUWWenCNrH4Wj qrsfUJjgPL1jNN6dqHgf tCZuzLHeXTWsWbSil2nv u375fWLcr3kvJKUAuoys dNr0fFezN16vz5F5Vidm B54jbBCoEXF0WQPmXOVa zFMqROBeYGO7AEHkuQSq N0cjJNRaSR4dbrmvNZkk DBfyNOHtvTF8AAZskZXa I4EoYXMlFWxxJPYoyhk8 IhUnKe7xqHLsdQedQVby YXJkXHBsYWluXGZzMjAg N5HehKm9oVYtNUpwzZJz r2qwl7ZyZ0grsKamUIlo o0KwyW7tOTDixzBhkg2q ZCBieSByZWZlcnJpbmcg iH3btGi8zZSdb55ya2po baA4xDK0ZQECJfEjlJvo bGlnaHRzIHRoZSBlcGl0 aGVsaWFsIGNlbGxzLCBh bmQgcDYzIGFuZCBwNDAg tTvhbLwbY7t7fwG6zWRi bXlvZXBpdGhlbGlhbCBj PQfopx7fGACeISApi1By kW4ak7a8YKNiWYDggU08 qb1dhJAua2A1dJVfbRKl u6AivX8zyEl9DOMwUhJ3 qZboTQJrJIPndFHlH9Q1 rD1vTdUulIGeaP== Biomarker Block(s) (test j7naeNDmXRFakYZeUXSi code = 9841) LhjmxcXmKTFzcFImX5Fx wxfbCSvjZX1wHT5asPmi fEVwwCGmHZIeZwZqk2mi g788pYSit4sgNRXWshve lQc1oQrjI17mk1G0Jsll Z0ioZGTlMSahNCSgKXga wREgIEb8KJTgdDWftnCa LgBfPBAlpOOobWZ7ODTd VW6esopqJEniYMbnESFl ueH7FKIriPKmZ3OaDAWd SE0sdrvuHVD9SGfdLFXn SOX7HhFdPKKra9Axdiy9 MjBccGFyZFxwbGFpblxm swGtPDJ0cJ1bCCGlv6Oc OiAgXGNmMSAyMjpJUzE4 NzBccGFyfQ== Disclaimer (test code = j8ajoJTlYLSjcBFlGcXc 9844) YIUpMMEzw1pxCLWerMHz ZzEwMzNcZnRuYmpcdWMx AWOgZkNwe5vpx589xXVg d0wgYQNhTdO7lWOuLEUf eORdO539ILWkABvsb5ti c4DyUOZrrDSfh6H3BMBT nktduHc5tKvhY44ws2B5 OlkkY0obARHeWQBtM9Ht CV8bFMPhRlg4FCK6WXE8 KKAhYLNdJ4CrQA5oQPLk nLSpYRn3i5xprVrbMHIo TMI9n5ywMBhczhLgWU0n xs9uhHc3o8ceirCxMOCg YXHigELOIWRyZ9TtoWvy Am4cbQp2cXryZcqsBCN7 Tzz9RK4wlr61wvh9dAdy LKFvsgqoTrH7BXkiRCJg kpbgMXi4UKgwUPPbdMJ2 QDVurXPfN0NqHPQbGS7x riq4CNF4NAhwPCNeObL0 NDBcaGVhZGVyeTcyMFxm h779VIQ7EiHoID7vW7Cr m2F9yZ1vaRWwSZGocDCa UrHkCJLgpn9llMAnOTsg v6VhAKT3mdD3uSNnrAEx TXPgEY64Rwagm4JpQelp CVM8QZAxniNns1Ple9oj VwGmroVoU3ddX6GsTHHo ILUxWGLwZpJiuaXgo6Tc i9VgpDKzeUo0z5kmUIGy ATYfxTzop6agFNC9BVXc H6O6pIJjl4yxJArzHGNs gDN5awU1IQWxlADqH8Qd cY3vGQEjAV7ufas8n0cu ZFT7OYwwGRQdDoN2gvD0 NDBcaGVhZGVyeTcyMFxm o188JOO5NuVoNOAvn4Uz X3AdtZqoX28kiOyzY14p QTIwdHjyeN3ycGtnaK1i ZjBcZnMyNFxxbFxwbGFp hoblOUlwjwT9HGxivmjd LLDgGDfwN8orBcAmYYQc nUdxVVyqs0XoPRWbMLGz SleavkE7WSKTy01xXGBl p2UkKNMroO8taTPlPYku xdItuAK0WMmilkFmGvXo whCnQYMsmK4nMKHoHT9t MXUzppQnod7wisBsQOSt AEZyE8BdemgxiKwapwMe VENtqh0yutUdEQP4KAOQ RO9FZAFlOMUuo80vSTBo rQljpC1moOBkweKvOGIr v6CosI1ztAQFIDEjC7pn QG1jTChno8GivSVnbURi xRD5KNDwt8SjPxVjluPe xERtoFFvR6GjtVttO4so VSWhEOWsilCrwKFlm4Ww AWTayXS6jXKwMO4NRpNR s35bJWEaOLNEjcTgNWPk hIscxEE1oxR7hD6sOmSQ ZiBhcHBsaWNhYmxlLCBj c956ln9pdcY3EBNwBSSa egilm3FmKVQuPENinZ37 LOCeOOVayo6vtsbleTJi jaPyV6Mxxok4fV0uNGGx YWluXGYxXGZzMjJcbGFu ZzEwMzNcaGljaFxmMVxk HoEoSYXjFPwdC3eiKwBt ZnMyMlxwYXJ9 [facility]ation 2022-11-27 23:08:26 Test Item Value Reference Range Interpretation Comments Materials Received (test g4tomMYoTQNslRDlLrPl code = 9973) CGAzAVKqw2efADXziBFt ZzEwMzNcZnRuYmpcdWMx QGGaKfSwd4xdj067pMUy h0eoWYPyEqO4qYNlAAGp wHKnO963SQDvCMtrg7qb d9TiGDRziDEce0N2YZKM vbmmeRv8rCttO48iw2Q1 VaqxL4bvWWHrISJgK3Rr AH5pWRDgMyb6GWB0WWK9 KSCeQYBkX5EtVA1iWPCy oAQhUQl6x2fzrCsbYFVf BHC4t9xiTMwuxzPxXQ5j um4ngYg3e5teruLxIRQb ZRXmvDIQNUXyI0NqrGqj Hi3cdLb0hZxjFelhIIE8 Bwi1MB9ach62ius7cQfu ZRWxjmivGsE4JTfkQXIv nurwPOx1SIfmTNPrpYdh MFxtYXJncjcyMFxtYXJn lRP8MDQejMVgH7FyETFx WPeqYIZunlc7GuDkPj4d qURrlYuhRWbha2wyg6yh hWZlEcs5RGKyUrGqUiqm XLxqs3Hpi8pgGJMxmd2p GFO4hCYtvDdzb6E8bLNs ORRtaHLkjqUqJYQofk06 yFKueRJmiYDzkb5dhmJz rABrgPJrSKC9bUNhpnSh NTWztXBjFRPnXE4ikXQv YXYmiI0bekzmIVFcNjYl ytiaHTRneCzngnKgMk6l gXiaQDY0XTmgG7mwqL1k AfZ9HCehS1kfzX6aGXt2 JYmtlUU2KHQmzH8yAN0r yokpt2snPySzFM4bqfgg e7taQhTmZA8hyif9v4xd LGY3KYdkTMIhQrN5kkO9 NDBcaGVhZGVyeTcyMFxm z459NXC3OcLoZBTcq7Qi X1DapIevH07ocXavW92m TCCuwZmsyP8ilDunnM5i GwGiVvWoRKx2mk25TKt3 oxnunIqmNSr1dxLgOLIy OCG6SIHlkBGsCHQeX7g7 ouZiIPCsQTS9ZKJxcEWx ORTvZ4j3saWvJZV4BUt8 cnBhZGRmdDNcdHJwYWRk YjBcdHJwYWRkZmIzXHRy yRLdkTBdxSUlzX7bxRqz RIYldKFddK3eBJY8CEAw cmgzMjBcdHJoZHJcbHRy zw45MNWtcjShvOYssTsx lKWbTGM5KEJxDXDoABWl CVZ7TDNdChAuqtAwTKjt bGJyZHJiXGJyZHJzXGJy XAZ5BRXlUbVohqGpZVdi bGJyZHJsXGJyZHJzXGJy KCN0KKKnBvYhrkUfEZpx bGJyZHJyXGJyZHJzXGJy KFJ9DNXiYkTonkWmNUdu bHBhZHQxMFxjbHBhZGZ0 Y2dhfAObLMOdTKmdqVFq IXNtF9ofkKEiGMnlHHCh cGFkZmwzXGNscGFkYjBc O7iiTKXdHcQrP4VvmTy4 MDAwXGNsdmVydGFsdFxj cIOgBNZ7LKHpZMViDHFi FVS3GQNjBqTjcwDiHWam bGJyZHJiXGJyZHJzXGJy NDC0POQiBaPthjGzUMbn bGJyZHJsXGJyZHJzXGJy MPP0ZRWoKzDtdoMtNXvo bGJyZHJyXGJyZHJzXGJy YWH0NPUhVaFcafKyYGeb bHBhZHQxMFxjbHBhZGZ0 B7xzoQZdIOTbAFyfeIRb WTQzR4oacLPiDWbqPWUf cGFkZmwzXGNscGFkYjBc W1qnQSXsPvLjF7LszVe7 NjAwXGNsdmVydGFsdFxj sYQcRWW5RGIrLRJnBIZs GMS4WVYfCxWxzwEsEUvn bGJyZHJiXGJyZHJzXGJy HJS7BOMuNtVgfzMbKUmt bGJyZHJsXGJyZHJzXGJy EZG8LBMjTaIgrzQgBZci bGJyZHJyXGJyZHJzXGJy WSV6FQNhVxPlrhFzAOkq bHBhZHQxMFxjbHBhZGZ0 W5eflGCdFPEdPOsttYFc OJBmL5ogoHUuCCynXITc cGFkZmwzXGNscGFkYjBc Y4siIOXzTiWiO9ThoPn0 KbGaOOTkqoDjeU20Vzwy z1BgCKKtSXC0LYpoFEom bFxwbGFpblxmMVxmczIw PLsceuwcPTXiACejV4zf SvQkNCGicCvtEPeon8Lu XGYxXGNmMlxmczIwXGIg AMPoEOWegY9mVtklA7Hx gX2dYFedUixpD7mkJOPy n5KhaE3nLQjcqEDpkkbm MVxmczIwXGxhbmcxMDMz ZJuuF3zmYuLwSBTolMeu IUwtt2XhVKMsTTEiRtda xlZiVKi3kbInFTErrLqs aTIzEZqfjbTulOwbq8Yp eoMaxXvoGGWqZIg9dkDt kwsrfLo8wYGqmHmfFEVm hQmugQ0fCwLvPeApSGrd bGFpblxmMVxmczIwXGxh anfqBFQzJKbhO7ncRjDf UEYmnEfhFFayq2SjPZQp HCVxHdftimXdOKOrN89y bGVjdGVkXHBsYWluXGYx XGZzMjBcbGFuZzEwMzNc aGljaFxmMVxkYmNoXGYx PGsfK0esLbFqR7OiSGWs OmDrrLFcJ4waU8PsbGym YXJkXGludGJsXHNzcGFy OXD5uWBueySjeDCwmMYl TQZiFIgiUDO6vEWyyzli wBPbucisWXhxwrA4VYWg YWluXGYxXGZzMjBcbGFu ZzEwMzNcaGljaFxmMVxk SwWjZDZmKSbaH8dcBkNk T5HzLVTfCkUmMwPHMTFi aXZlZFxwbGFpblxmMVxm czIwXGxhbmcxMDMzXGhp Z7acJsTpEHUwpAjmOWfy i4NbVWTrGXMqQbeljwLb BFj3byFwMIGcnLfiwM79 Bqrqjh51XAPoy7caZFLj F2HteXTcBBRzdTEhTPgh MDhcdHJwYWRkZmwzXHRy cGFkZHIxMDhcdHJwYWRk ZnIzXHRycGFkZHQwXHRy iAIeSCP8B9v3qkVyJGYc NYf5cmMpBWDbIcFdxYAh KXK1AWd1ZzjwezF9fLLy M7e6GzzwdyHhDUizeWZc hy85QABjzkDazZSuzBdr rLXgYJN8HCUhUFOyWDNo VHW7MUBoDqRyfrQqIKij bGJyZHJiXGJyZHJzXGJy MRK0EQDrMhBuibDsLZut bGJyZHJsXGJyZHJzXGJy VAM2PJKaHwUzlzDvFWpl bGJyZHJyXGJyZHJzXGJy UHU6CBMxQsJdtmChYSlq bHBhZHQxMFxjbHBhZGZ0 F0yyoJFxRDLlEPkbeJUc RRFeD9supOHwNIrgGXIp cGFkZmwzXGNscGFkYjBc R3euEIMkFpBuB5RtzNa5 MDAwXGNsdmVydGFsdFxj zEQlJQK5JMBiTRMbSWSm GYH8VQCbEoEsceRhPIbv bGJyZHJiXGJyZHJzXGJy LJK9CZPfThLbsvOiAKej bGJyZHJsXGJyZHJzXGJy IVA8IVDfPyHjfnTrFEsf bGJyZHJyXGJyZHJzXGJy HGX4FPAqNjFfomKuOGme bHBhZHQxMFxjbHBhZGZ0 V6wnsQQoTPEvSAtfnFOb ZUEtI5ekgHYyWYckQENl cGFkZmwzXGNscGFkYjBc I6hfGRNsFwBiI2VeeOq1 NjAwXGNsdmVydGFsdFxj dKKdHMO8YMQoUTXoSEKh ACH3WKBeOgUomqIaQOew bGJyZHJiXGJyZHJzXGJy SKP3NBIiXeNjjbJzHVjt bGJyZHJsXGJyZHJzXGJy DEH2GUXxXlJsyzVxKLzc bGJyZHJyXGJyZHJzXGJy TZC5DOYiGsUimvApQWus bHBhZHQxMFxjbHBhZGZ0 W4iepWJbWLHvQYjgoBXk HXDnS9szlRIkJUvfXXSx cGFkZmwzXGNscGFkYjBc M8jtAUNlUvKgQ8YnkCa7 IcAkHKSnmcHdvE07Iofa f1KyDAImVJY7UVidVMwk bFxwbGFpblxmMFxmczI0 XHBsYWluXGYxXGZzMjBc bGFuZzEwMzNcaGljaFxm PAzhDiBxUFJwHNjlJ4yu DqUaQ8WeZLKbUaPjFG6c QkH8ZNEhWPziZEU9SHAL EULdBSHVK2HSUdogHWHX C7JllMgxyH7ySnGrAzEd NXjkIQ9lVPNjN6vzpNQe RVGuPQIcZ1ncGwRgqC5h aFxmMVxjZjJcZnMyMFxs dHJjaFxjZWxsXHBhcmRc pG52Pbcak6MdYZDeFVA0 MFxzMFxxbFxwbGFpblxm EIydmlN7PQAeOWkrXLRc XGZzMjBcbGFuZzEwMzNc aGljaFxmMVxkYmNoXGYx GJkgJ2ofUsQiL4LfAAHa MjAgMTIvMTYvMjAyMlxw bGFpblxmMVxmczIwXGxh gytsDHNzUJhcF7lcFrOd ZCZzsZdyWTuva0MhNDSs CRUuWztpjiQpDAh6duSl XGNlbGxccGFyZFxpbnRi xLwhh6WbxuOxrRqaKYSu XHFsXHBsYWluXGYwXGZz ZfYakOgvbC1kAjEwRfJc AVrbNZ7rVJPjU5tqlFHt LWCaRUIaW7spTzGgeK7c aFxmMVxjZjJcZnMyMCAx ZoL8CnLbYpZhqNgwuO5t ToDzUuIuFKqeFS4mLDXp Z3euaDEjWTZpGQVfN5op ApIhzD3edHciBHsiFvCv ZnMyMFxsdHJjaFxjZWxs RFnmcGLkPBIyb0wiYRAf HXNqiTDhDEL8gWCaytVh yXuxtVmvpL7aTcBvZiQw NFxwbGFpblxmMVxmczIw BIkekhxmSHFqNHlxT3ug EiPlWADkuIwlAKlei6Tg XGYxXGZzMjBccGFyfQ== Addendum 1 (test code = m5vqqURrVYGqoVJtZQYi 37) NhymngPvHBPjaWRsO1Gv vqfnOIzxIR4rWZ2hgVzt jPApkBOdPXCvDfFcx6lk l348qYEie3uzWCMXMYml UDTXUQw8b7twHSGGbicb tHp1yHmvH99fb2E4Xknb Z62lzYSdZSO2QWGxYPZq pALhBVOyFLL2IARdfHAx Q3qmUTPsEB1mtjplBUzi NSdqDSLfiZJ6ILLorLHq M2QfWWNqBOiyOEIqlxv6 ZdPpKc3vgOWyvJxsPCyv YXJkXHBsYWluXGYxXGZz MjAgQXQgdGhlIHJlcXVl u2Fdy9CtnRdiYOLoHXY5 cE0wAZJrjELgK8otvhK4 fJVjSj0nyZ84xM2oZAO1 iWRbYYAvo9TwYFMgBNJx n3NwASPtBD7oJUowfBJe oMRscEBaMQM0NR1HQIZc MMYnl28nWfZeeBZzNAUb pjVdcCXdGCBoSPY9yB0q ciBjZWxscyBhcmUgbmVn HNBdzjDcUl2vDCriuuGx TJLfBURdaAAexY42ax7w pHA9o5DbNZ0vE9XrJGTs QUx9z2wfLnZnyOLvHYRp ybFqfUQrOZEsCUB7gO4h uyVnMNmeazJxjzOmsI3o aXRpdmUgIGZvciBjbGVh guIrGR3XFAGVEQCtQAN1 IONqJVBpcNTieN14yw3j sJG6t0WoAV8kD3OpDJVv OBt4c1dzUwSqfWXhPNDd odIGAX6FCJHrP7fynfEj MjJDMywgRGFrbyBQaGFy tXB9BNNVt08svR8lMCYO d0IxjSz4CRRWZ29bWJHl C8AWAPrceXMugBBxdgW2 aGFuIDFccGFyXHBhclxp LOOhHDPhg6J2WBkaRf6t aDO7pQ0tGJKiFJL2LWNl aXMgYXNzYXkgaXMgbWFu vQLuV6D4qgWhHNF8AVKf aWxlbnQgRGFrbyBhbmQg rJNkxrTxEM7ahm2fnA1p VTfnKV73lL2WXN7DDXtu X4fktjXyDeMDAq4eNWMm qIPupWKvQq6oxRJnQZ4t JDOifr4omCxoJGYrrQDz IHBhcmFmZmluLWVtYmVk VSUgRZXqb3K9KTK3s3nv JaBoqyQTR5yoZL30LGUt g73fBCR7e6N7UUiyBAEp YP8yCPRozBbuAFVeSwMj VGRlPFX4IOR5fR8fMKto lAsuUITkc2ClI9lmjGPa WOU4XKIpWIDqHP45YhGu lNUgSPWrATg2JPhkFBHz fZPxwpGeFWNcabU1l7Qs ZLSuHIJif19jJP8dv24v DTziU92uc6TdCeTfw9Pt j8EtB5mdtMGxvRrlrlDt oBZzBA9oLWJplxYirH9b bXUlc8SxsCbcPNOiL79d WyimDCFbtM6maGCegxDo p0IpcjNhVDXNBqdvcAJl H2VjE2HaEQCvYSBtxrU0 zRCnybNgGzHhCU9tQPFH SQptFKK2XNstpF1mBOCj kYegXHo3lCKvwGRvdI68 NXNrqqVngMRsk7RgO1Sb yRZan1yti3paFyRgGD0q qwJjh4JfSAS8MUhdyK7k MB2dGRUytXIzmwUttoNb sWl4UWx6hHBmn5N0iQUs UHPaFOAfUGPwt5HwBYrb mjMemtB9oWWymCYwy1Gt ISYnQZDmyN35kD4nJL1j iSYzDZ2ocZYbf5CeR2e7 k8HlUFQqgBZqk1QzhA1l xailc9EaZF00NAghjDIn j5j5qEfjNGo3oBYaUBLo uLY2rQSeyR88HUfvsoAv BwBfPE6hVLRcZFLrPAZm knJay9h3ZXP5hJ1aywTf ZWxscywgbXVsdGlwbGll ZCBieSAxMDAuIFRoZSBt ATewbWWaEWBlt0BkXAse HQEuBfjuVXGvKSMqK8RB YLMhUT7jfLIsZMvqJOFx clxwYXJkXHBhcn0= Diagnosis (test code = t2xkhRPvLHAmnIVgSPQt 34) RgrevfHcMMGfmSAlH4No gcumIFuoKM5pHI4jlTsq mBNcdHCpOUWqJxNsn0zl b759zKBmb2spHFKWonxo yTo0mHeeW10qn5Y9Gdzb Y7uqKDVgFGdkCYPtTHkg dUWpRGi1FWUnlLKkorSy QpWtMCLnwIViaNM8FQVa AE6ahhipZVdaYKreMOKh aoA1GQCvwMKaK3UnXDSy YD5grmikIMF1IOslSKNx YVA6HyWhEMLlj8Yeauu0 MjBccGFyZFxwbGFpblxm czIwXGNmMSBPdXRzaWRl CIvwLkxAFxC7GzJePKwx V5RdQCJlQvqUZ9eHIDEg BEPYYvdzB60tkIFqrPOb NH2sDSEnQjV6ZsIbJhGg UvylTCXhL2QnHOTtfkzg uLrpTHiwdJ88JnLoTzLo o2McQLD4oybhFJNye8Kc oJmbpSKvTHdrUiY9PHyp qL89FoTqmKxfUiR3QEVB MKYYN9xZGWOTJ2ZIKdNB BGZECK7MHFKmPACCQGJJ GPAGJi1xCEuBBBGfBMRq X25bdGNanNsgCIXjhCWn XGxpMFxmaTBcbGluMCBN RFcvRkxaIFxwYXJ9 Comment (test code = d5unqFJpKSAjzANqXMOg 9835) FwhneyJnWBXfgEVzQ9Lr mnfqRJdpHE4hEO6jwLhs cJJxwYEsHRFnFnUgs6vb c504xNXex4gaJIALtuqh hWs3rIcaI82zt7F5Grdh V47pzLLzKBZ9QOWfFPNl tXSyRRVfHJD8SEBqjXHg C1aaFWZoKV3siddpOHws HMppVYHdeTQ9KBYtuNNb G2LaOMXkYGzxDMZlphb7 NbMsHo3iiHRtkNxiNKjv YXJkXHBsYWluXGZzMjAg I3WgcKq4hMKcJRwnzZEt x7adn1NhC0zdqEzxABuq o9ZjjE2wDWHvxlGfpu2y ZCBieSByZWZlcnJpbmcg tC9nyIk4cHNmz31ql0ya leV1xPY0CSDZCyVlkCwr bGlnaHRzIHRoZSBlcGl0 aGVsaWFsIGNlbGxzLCBh bmQgcDYzIGFuZCBwNDAg dLhklLgyO5e8tlA3rLCf bXlvZXBpdGhlbGlhbCBj CUcfzk5sRQDwQYNhk2Bq xC3gj6s7EEHdNGXbzF56 ne0ynYTgz6Y7uFWwyIVl e9DruH3pzZd8TMTlCaD4 qPdcCKRnIWUlrQWyI5V2 eM4wIhUqtHKmoT== [employer](s) (test g3vokFRyIYUdbGWoFECp code = 9841) TlfniuGdTSAsmTVeT3Kv bljaJEbfBV2wGA4aiTxk ePZhfJHlVUFjZqVnl2mq k969yMOnw6nrLMEJqodt dYv9jUrhF96ci2Q9Puoh M5dmPSXcOYpwKXTuZGil eWLtCIc5BYIswQRnzfBr HoMjJNXjmZBkzDF1LLDz ST3pqvnlQSveMNivIRZi ldH2EKRefGKcC0JyADDf AH4nhixxGMW6VUjlPTKk SKI4DhTwJRItq7Axkke2 MjBccGFyZFxwbGFpblxm ctIgVDA8vU4oJYBnx9Zg OiAgXGNmMSAyMjpJUzE4 NzBccGFyfQ== Disclaimer (test code = g7pqvFAiBMOmoPOpWzWc 9861) SJGbASKoh9buHSIkmPJs ZzEwMzNcZnRuYmpcdWMx GCGkJcZwz7wxv081zEOb u2alNIWpBmK0oZWmPQAe uYUyU176MVUdOWwlp4xr i8GsKJJshSIwm0W1CGHK sqezhSa1wSkrE06ud2O8 DseeD0cqAJXdPZRoF9Gz FR0rKIEcBfa2TPN4OQE1 XGNoWZLoM9CoIQ1oUHKh gLTxMXm7f9ponAjxTZTt UBX4x2iuDZjbjkZaEV5q uu9sfOw2s8uxyoMgLIYl MKUobRLCEGJrN1AogBzd Dj1gzSd6iBbjAwtoUFH2 Pht7JU0fgl58zpo4uRyd JRNeborfVjX7UXftFUIs kwxrIOm9CFtbWZIfmWV6 IASseWDhR7JvRROqEW8h ler2PDO5BMuiGNQnAuQ7 NDBcaGVhZGVyeTcyMFxm o336GJJ1KkRcDW8dQ0Fv b8R0vC1nyYUvNYQhbVHh HrTcYGZojg8tuMLsQTmv m5ZqVEH4afC0fMSlhLVx VCHcEZ52Lxzkd6QxVunm TOB9IDBkjlKor5Izi6qu WuNtzoXwW3ybE6ExJALh RDMoQCJqKtJizqGsu1Pv c7OdeIKqhTb6v9udPWGm DKMcxLmif6hkJYJ8XRMx B4Y1hXLln3jwEXecOIBr bWX5khE2OXQouRNeM9Gb iB0wNCPcXI3prqk8l4el FID1GWagGBIyBhO4mcT7 NDBcaGVhZGVyeTcyMFxm v620AFR0JcXyEHQgd0Lc S6EhxTquF82lbYvxR77o PCQscGiodG5qnPuemM1l ZjBcZnMyNFxxbFxwbGFp mupsYLhpjeS6KUyvumfa MVKzXRrkS4lvKkXxRCJa mYxmNLowa1DgTJMkPPPv QvpjffI0GHIOl73bFSWv r8IhVFLqgQ5ffFRtJVpn miEijBK1FZxvriTkJaVw inJuVJEnpP8sDSKgXQ1f OEFjpiStkf7oxcArQCNl INBaX4UzfpvlyTccmcSg HZHrfw4qsqHxKNN2LGTZ TK0ZCBKhTFApt75hWMSp jVsukI1vwADvdiCwBFQt l6ZqiS9lyBXEFTZpQ7kp XW7kXNyat6KakPWlgDAn rKY8IORtl5DyRePpqmUu rEVsoPKqK1RcfKosW7pb AOFfFQVtdqIctBIvf2Zu GLPabTU6qXVeWY4DGfCP g75vHZBhXTPRwlNcJKUi yXgixRU4ggS3oN0cZkFN ZiBhcHBsaWNhYmxlLCBj p361qg7ehmR5ZASrJKKi tgjgo2TsNCIyAJXktN48 VUDuIJCkfp9shoxcaSAh deVfL9Hqtmr9xW2aWROr YWluXGYxXGZzMjJcbGFu ZzEwMzNcaGljaFxmMVxk AxXtPXXcCMvuM4glNzMb ZnMyMlxwYXJ9 [facility] Interpretation 2022-11-27 23:08:26 Test Item Value Reference Range Interpretation Comments Materials Received (test p3zbyTLbWRXpkHPqTbOr code = 9973) YBCpVSXtu9hiCAUhlMCo ZzEwMzNcZnRuYmpcdWMx EVEcLbAzh1sov763nLRy n7qtICShKpQ9dXMoYOZv fCFtK400QNGwTXmef9sl j2PgUSRxkYSjo6Y3KIQT awofkSt5sLmaP91ur8T8 ZuuyL5gmJNTdWDBkW7Mb RM3iAVNmRmi8AAX9DJK1 DXOrLVQaH9SyAW7rBCZn oHLqWVv8v5jijVzgUBVi PCG7y6crEGejxlFzAD1m mr7ymMy1x9gnfvQkYGSf GJAapWYRBTIoU3GmjHvj Gm5naLr7sDdeBrrlZXP2 Rcy1VV6xhp85erz4lWke VGQzluqjNhO5FLvfOJOw ndhcUXh3DTleSERpcJjr MFxtYXJncjcyMFxtYXJn eCU3IMYuoYFrX4NtWCHc OYyrIFJntpw4KcXsJf9e hOWhuWnyKGhrx0frq8sl iHAdNwh8NYFsQzVjWbic RLsmo1Eyv9edHRVjpm9i TAU7nAEhdPqll0C6pMWz JGGukMTqccVeJWJamd12 sNDpwFAfkTLkyf5ewuJm bABrkVGsAWL4rRHalkLt VXDdoUNyDVCmGL1jmAEc IDPosQ5fgcmyEDYxPxMf ttacRHIneUkvctFiJn4i yZlgEAW6KNlzY5ubiW7u YyA5SWjjZ3zuyY4iMCr6 EJbbmOC7GOAbmS6iCD4l imyzg5bjSdGnPB2uuogt y9wqGoEwFX3yvin6s2rh IAO7WNwuPCQxLuK9bdU0 NDBcaGVhZGVyeTcyMFxm a691VTM8CkGyUUQsi6Fh Z9UxoUckW68qdMquX99t YQHowJvhiP0aoIctrM5n AjTnUlDuEJi0ey30WZp6 haxgaIykXJv7ngDkNYCz GWX0LESbxXTwPQAfD6c7 wqAxJIKqSXB1CKXngQTk PMNlC2v3drNbQHN1EQy6 cnBhZGRmdDNcdHJwYWRk YjBcdHJwYWRkZmIzXHRy tFAxzNStpVWxvL2ieFov USVvxTPnxB6tKWN3YZLv cmgzMjBcdHJoZHJcbHRy qs95VXGjadXrhYZiqGiy dYEfHYO7USGxKVYqXUDj VMP3JOTcSiUybuGoJKsp bGJyZHJiXGJyZHJzXGJy LSW6FQVhGmJopuYqYEtz bGJyZHJsXGJyZHJzXGJy NLW5OHWvKaNspkMaYEja bGJyZHJyXGJyZHJzXGJy CFW7PQMoOyUtlmIvOZkv bHBhZHQxMFxjbHBhZGZ0 H3xznUNfMVYtXIhecSMd WNWbO8sflSDuAUmjAOUt cGFkZmwzXGNscGFkYjBc E2rmTFZaAoEpS0AdhEg2 MDAwXGNsdmVydGFsdFxj lTHvQQW4FVZpTDInFXCj TAM8CYJoViGkpgMxZPkl bGJyZHJiXGJyZHJzXGJy XPH3BCVzHdIcalFmFNvn bGJyZHJsXGJyZHJzXGJy HZU9PNNjFvAyrwOnSUie bGJyZHJyXGJyZHJzXGJy FIW7UTJwOjVsqiEdACfc bHBhZHQxMFxjbHBhZGZ0 V7gplJSqLMSwMWxufDKw FKFtP7cvwNWvKHooJLUr cGFkZmwzXGNscGFkYjBc I3inDBXzRtGtO3GyeUt6 NjAwXGNsdmVydGFsdFxj pVBvAMC5JJGqKESvTOLa BHJ1JYFqSqCiwvDpQYji bGJyZHJiXGJyZHJzXGJy VAB4JQNpMpSygeEhLXnq bGJyZHJsXGJyZHJzXGJy RWI4GHHwUsKdkeMlMQpu bGJyZHJyXGJyZHJzXGJy IZL9ZOEsBlVgciNgCImb bHBhZHQxMFxjbHBhZGZ0 M7pbeRLrLOUpDZrtbECp EZCgL5ybpKHtHExnXLLl cGFkZmwzXGNscGFkYjBc U6zlJHJgPbJgZ6HkxEd4 NhIcHGZrqaVuxV13Yijl d8SwSEOeUSI8TYbbUMzy bFxwbGFpblxmMVxmczIw SSqvsklmASWnNQhbY0ps JrUzCGJocZjlTAjac1Uv XGYxXGNmMlxmczIwXGIg VYAfMPEdkC4wIawmX7Fc iG6zQEixPhdcA1ktYMLh h1ZmaV1fDUibiAPqkavm MVxmczIwXGxhbmcxMDMz GRcsU5ilEpMgPAQhwIzy MKvre7TuMASeDPGoKlyu zaWrGIo6tvGcKKQuaQex iRCdDPjbatVlfEboj7Du pqYabVvqOTZyAIc6giHj kmzcrHo1zNHdaSkvWHPx eOuvvD7xSaQfUnWiDBkw bGFpblxmMVxmczIwXGxh qrexGZIsMPdvT2iaDpNl FQGucDmlRFsjh4CtMKBy GDWzBoppycAfZFEaS92y bGVjdGVkXHBsYWluXGYx XGZzMjBcbGFuZzEwMzNc aGljaFxmMVxkYmNoXGYx YNchV7foTmDhA3ZrZJLj YeTcjSPpC4apB3LguJxd YXJkXGludGJsXHNzcGFy OAT7sZUmotNerIYaxYRf UIZjKOemYTE5gAAekacf mYMgbqcgBQhsaqS8TOEk YWluXGYxXGZzMjBcbGFu ZzEwMzNcaGljaFxmMVxk NyViBCUlCNazG0lxApRy A6HsXIIgKsFqTeLSEKCn aXZlZFxwbGFpblxmMVxm czIwXGxhbmcxMDMzXGhp B7rlFdIkVBZubPfzRRax c3GtRZXiRRPeLiqtwxZo VEy9cnCcHNOpsDhdoO86 Rsuhtg83GFHcj9xoGTKc Z8QmoCLkITFbgAVdBFoe MDhcdHJwYWRkZmwzXHRy cGFkZHIxMDhcdHJwYWRk ZnIzXHRycGFkZHQwXHRy rCNtLTT2F8k8ymSeCFLj CZz2jvRkUIImPkCseAVm KVF3PVo0IxkswiS8iYNc E5m9RsqnahOsFInmgHBd ls33OBDiqxNqsWOhfHck nFPjGFK7WBJjTLJdPRZl EPV9VCYzCaJfnpIeTSym bGJyZHJiXGJyZHJzXGJy NOF7IPMyGqKvaaBbVQcz bGJyZHJsXGJyZHJzXGJy QZJ8CITcZqFwlqZmFNhv bGJyZHJyXGJyZHJzXGJy ZAI2GGPiZqVolfOnRFnr bHBhZHQxMFxjbHBhZGZ0 Z3rxmLBeARZoCAzboOSf TILcV3axeIVlXLvoKKTi cGFkZmwzXGNscGFkYjBc Z1jcRUOjUeOtB3CviCm0 MDAwXGNsdmVydGFsdFxj vTQjFXE5AMDwRTUnYEHe HUK9LRDwRoDmzhKaRHaf bGJyZHJiXGJyZHJzXGJy QMD8QJOnBdShfaKeCHzo bGJyZHJsXGJyZHJzXGJy IGN6GHTuFnXmdkTaXBnz bGJyZHJyXGJyZHJzXGJy CYO6UUItJbTjmxLhGQyd bHBhZHQxMFxjbHBhZGZ0 N1ofyRWpAWLvCXzztTWm WCRcU5choLVpHJgmANNi cGFkZmwzXGNscGFkYjBc Z8etWFOpAkJnX9KykTw8 NjAwXGNsdmVydGFsdFxj sXDiAZC3HNWzQLXlKGId TSV2FZArSaSwikYnWRpn bGJyZHJiXGJyZHJzXGJy WYW5URHmQeUtreRgVObg bGJyZHJsXGJyZHJzXGJy EBI0TTZoZcUdwaOkUDqx bGJyZHJyXGJyZHJzXGJy OCS2MWSvYwZhfyUxBLgl bHBhZHQxMFxjbHBhZGZ0 Q6ayqOQmVMKrFWtarOQw ECYoI5jdpPWfLHaiRSGb cGFkZmwzXGNscGFkYjBc A1tfPQDlCvGuA8LccWz6 KwPhOCOyxiZonQ78Hrfs s5NcCYNvHAZ8GFukKSts bFxwbGFpblxmMFxmczI0 XHBsYWluXGYxXGZzMjBc bGFuZzEwMzNcaGljaFxm KPgtAyOqAGFhQKqmD6yx OrIaA7ByYRTwGqSmKB1j ZhI8KVQdNNrsDCP8BUXC KVVhOMYWB6HPZaaiUFTY T8IfwBxdkE2xAcDySvHk QJifSY7lUVKmN2dqfKCz ZUIiYFEoJ5mcZkGwhX5d aFxmMVxjZjJcZnMyMFxs dHJjaFxjZWxsXHBhcmRc vE78Akoou2FqBCUgCVN0 MFxzMFxxbFxwbGFpblxm SQlhooV6OSDnYYjmXVHy XGZzMjBcbGFuZzEwMzNc aGljaFxmMVxkYmNoXGYx MJccU1uqLzYvA0RiNWRi MjAgMTIvMTYvMjAyMlxw bGFpblxmMVxmczIwXGxh uetdARQdFScsJ7hiZaAw WQRdzHkzQFijx8XkPDHg JFJqXnqjchIuWLg2qzEf XGNlbGxccGFyZFxpbnRi fArlj6TzdpIbwEmxCQDv XHFsXHBsYWluXGYwXGZz QnSwiIyzyM1mYdNuWsFc PAejUB7hFSXmI3bfsCRz EZKrMHVyU3twRhBzaC9n aFxmMVxjZjJcZnMyMCAx BqH4CsAmTfFowNamxN5h ZlFzBuIkRSkzZY2yBPKa O1jrfAIlGKIvHYTmY4ah DcDccQ7ryHacOKnoWbHc ZnMyMFxsdHJjaFxjZWxs GFluvEHuRWSip3ryBDHw VEMcwOPyZWV0iUHntrSr uYdugUueoJ6rGoGcXpDs NFxwbGFpblxmMVxmczIw OCtqyhweFFIcERehU4qz UiUhHLAenRpkLZfxc0He XGYxXGZzMjBccGFyfQ== Addendum 1 (test code = b2vsoVBjVQFgoAWyMHMw 37) AqdonvKbBXQxuUFyJ7Vd rxhvBNrsAT0wHR5ooYsa rEZmgODqONSvUgNfo0ku r359aHOfi4bbUHZXCOhf HKNENWh5q7soPGJIbrfc uHy5qUlqD18qv4R0Qmju B45aoVMdSED4XNSfFENt uPHbAQRaNYX0BNXarZHy K0sfXYGuAP0dnrdwEHyp SPyiDLOuzHA8POIeuWTj I8RaUFGjSHnpYUClndk8 QjLyHy5bmRFojBghYSat YXJkXHBsYWluXGYxXGZz MjAgQXQgdGhlIHJlcXVl o1Xft9DsfDsdXCFbLDG1 qC9nKLXdcAMtO9gfftH0 aAOfFn8tyV66zX1wDSK9 rVHqJJEsk4OdCSHkEHIs h2EzVUMkKB7tSSunvMJs iSQvxOEoCLQ5IV1HUGMw OINsz79yYbOndEDaPXPg bsMmsWSlTUVcQTN3lI8a ciBjZWxscyBhcmUgbmVn HTVvhsSoCg8tIMhvrdEs ZPLyDRCdxEAgsF77ym1u pTM8m7KyMG1nR3MjQYAl RMc1e7rbWtUklQOfZHRh phXvhKOwONAaPID4mU8z wdQbVXbpjrEwdaZtpE4a aXRpdmUgIGZvciBjbGVh xuXcSA6OOHKVKLIeDXN8 AIOzLUDxsRIyyD89mx2z fVA2l5NfLA0yO9OxNVPz TMh7u3tkVeCixBYzTNUm ubDHUG8DECJsZ6qwwlBu MjJDMywgRGFrbyBQaGFy tJL7XSTTm27nbQ3lPVMR f4CdmAp8VOHTN13rANGr R1KLCFogsIHbfPGnpoH3 aGFuIDFccGFyXHBhclxp ZNPsWCQpl8X0ZFyeNi7y lUB2rO3kTTSyRGV2UHLq aXMgYXNzYXkgaXMgbWFu pUDgB3X0vzPwCHZ0OBMi aWxlbnQgRGFrbyBhbmQg oCNmwkNmYA3aex4koZ3k EFfiXF44rK0FRZ2SUGlo T3kkpbThVlCNAt3kBXTl yEZxkBLmSz7tbNUrTN5i NYGhyo1vjKbbLIMkyTHj IHBhcmFmZmluLWVtYmVk NBKkXCIjh5N9HKA8r4co YjTjmyCVX2llYI12NZVf j62vQNL1m4H0XPfxEBLg HY3nXHLebCiiIXCuPrUv NIAhGOA7BHY4sZ5zXEgg nAezAMFyv3YlD3nlfPIc EZO3VHTpFZZqYY84YzDq sVRrXOJjPOg3EIepYRZy hFIeamEtCQYmnkV5o3Pi NXLwAYPds90eUC0ya37e UHsxZ08ti9OoAtHuq2Qs k6OgC0gayDCsnZfzzaLu jBTnBI6iARHxkmIzsT6h dHOsn8AanDjzBLTnS63c JowrJLXqkU1qeDMsykYt e7XesmPjAVOCLpkjcGVe L7WzD4MiPEOrQFUnkqD6 oTUtvcEyNbMuGU1vOBBX EPsqLSB3NHxdmE1kISVc pSdcXAk4uAPayAPzhK78 LVNtgsZdpYXea8FkA1Br zIWkw2drh2eiDsPxGX3c iwFie6LuUJV7CJrznW2i IO6iGYZolMYpyrHoweMk yPx2MSp1lVSjs7A6nMDw SNHjIJWfRFDkk6XtZMkc xpVshoE7rFMtnUFro4Mr VZVbDZDlpT55lB5wLR8l nSLaIY1klHWtd2TfJ1j3 o6SfKAGvsZWro8HfaQ5p lvhwh7XlJG81GGyjlBWv f9k8mHeqOEp1yMNiSLJz kRL2aGCulL90RNrubwZj OlSpLE9sQHGdIECoCJCj fnJxa4k0UGF9lN3tqgBi ZWxscywgbXVsdGlwbGll ZCBieSAxMDAuIFRoZSBt IYgrnGFuYYQvh8WiRVfa LQTlZassBLSnPWJzW3FQ VRPaIF2uwZRfFKhdUTNk clxwYXJkXHBhcn0= Diagnosis (test code = p2ybeDVrPEZdrJOaFUZy 34) PuzaxkKgRIZvmLVaH9Vi gkcuQHxeTX2fHY5jqImx iENrbIFmMEJrOfZav5ft q611oIHiy5amQHSQkucy xFl5hHvhG43jd8Q9Enwu V1oiXSMtKOscMKBjXDnb fJWkKVc5FEGmcPDyfnQs AiJzWRPqyPUjtGK9FQNf XD5qvojvPZkbMOgeSQSm htJ4MHRvkFZfC1MxBMVn BK8mltlfYLH7JIcwRYJv UEV2LmTbLGXqs1Fvpfh2 MjBccGFyZFxwbGFpblxm czIwXGNmMSBPdXRzaWRl SSwsYrdQAmN7LtRsGDyt W1YsUTHpVqdSM9pKUVIf EYVKSkxoX70azSOwdUZq ME3zFQZgShJ0JxTbRsKh IbynJILxC3AmBCYxjgev mDoaZBdvzL22FzDeIwXl j1KaZWA5pjjcRLWwc8Do pSlmoUHbUGarSlB7FAzi vP64XjFafDqpQpU7HCYV ANUBN6cSPKAIE9XBXlFA EHCVZN9WIMAuZWIJYSYH UQNZQs5jQXcPCWOaZRWb A47swFRqtMoiJYEhrGAh XGxpMFxmaTBcbGluMCBN RFcvRkxaIFxwYXJ9 Comment (test code = h2lugQCtWWWuzXNwTGBv 9835) CwsaldFfCHFqxLGoV4Mw eszjQJlrHK6cXV7zpRui tCEuwTAeSADkUcLxb3hn y489vCMbs6iqKPHVjcjy rUf5cOexM37eu0W5Lnbi J02ahERyXRP9ZYEuICWq dEHxKPYxEUU8IVUxqELt J5gcNRZiLW7odbnyXEgw BFexBWGhdXW2NUCizIYf P3GfYWGbIHliHNVposv7 OxZdGl5ubTUgfSsrJMvv YXJkXHBsYWluXGZzMjAg U8MdtQo0wCSrTCddcSLa z0rbe3RkO4ecxSlpIWlq g8UkhD2qZRKebxWskv9e ZCBieSByZWZlcnJpbmcg uW1ijVk6zCRdk99jg3dc ppZ5yGM0OFEGRuSzoVcy bGlnaHRzIHRoZSBlcGl0 aGVsaWFsIGNlbGxzLCBh bmQgcDYzIGFuZCBwNDAg fXxeqTonC7o6meA7rVSy bXlvZXBpdGhlbGlhbCBj ZZcmti3nGBUcMJYpg0Lj vK5oo6s1NLZbCBRjvP45 gi5joYCfq4X7eFItpZZp q8LhzC2kcBj5DWLcNrS5 fPitUPQbHSOsmWTyB4D3 yC8pCqNsnIQllG== Biomarker Block(s) (test q0vvmIRyGGAzdSStTBPx code = 9841) DrzzccLqIYZuxBWuZ5Qr mpkrMKpcTO9aRV6czFso wVRsbGHgWHSeTdInb5zu p753sOHjn3xeGGUAwtaj gDx4fSajN50ft0N2Acis J6efJQJgGEraWPXjMRyo uSVqBAs4QFRjuRZpuyEj QlRzXEFllZTuiEF9VZRe EB7jaepuZWbzCJzqJVPb pwH3ODPvgMVfU9PkAZPv FT8skjltRZZ4UXmkKJJh PDV7VbZzIFPke6Thdem8 MjBccGFyZFxwbGFpblxm skTmVDB7kI9kIEBdx1Aw OiAgXGNmMSAyMjpJUzE4 NzBccGFyfQ== Disclaimer (test code = j4ekrFBcNEUqpCLvKbCa 9844) VJNvMTTsz8naHSYngCZq ZzEwMzNcZnRuYmpcdWMx DXLwZlZdk7juc332mZYx z4mbCDApThA6aNYeMLNe uHXdK649ZRInGRdfp1tf x3VaLGLskVKgh7D8XABL tutpeQk5tZfqF54ql2V3 OysuP4bpTCLiYBJvV5Bh VS6mKRYeMbe9MPT0NRB4 LNEzTZMtT0YvTU4hFAOz lQNkRFh1s2toaLszJBJa RTJ0w0bmXDlhrgCmLI3n ma0gwJz5x8jpoqKfHTUg LXCllNFIBOKeQ6DnqGco Mi5qgIh6uAoxKbgmRPN2 Ikr3SC3smz70kzk2uYmf KCTxkkvhAoQ7YUqkUUZc mqjbZNt0ZUbaUMVxkYW4 MXHndVWkC9YxFHNtCM2u upq4ROI5AMxeHQUuQkD9 NDBcaGVhZGVyeTcyMFxm o397ZBQ5VsGrCW4jC7Yg y5T0pR2ohRJoSMZroNFq VrJwGBIrqc4qzLDgWNfj r1UkNWN5cuE8hOYfiOZs SHKbAS59Dyica4UeBzhi KWB9CDFfxqFxo1Czj6tb WzVvqnTwB7ufX6PwQLNx PUVeVMZiNxSkrtPrw3Dt d7YxhFAkpPj4v7kyHXKp YLXhtDmpc3dlECQ7TSEn F9N1jMLlw0wxHOspUQYr wUQ0seB1KMIffAVqN7Kc xW0oMGLqNM4wjos4x9bs QEX1CDsiUOOrJtO4avA4 NDBcaGVhZGVyeTcyMFxm y474BLW7OfXgEEBnz3Xz P5JssTtoM44btTnbE62g DGSqpJazfS1cdNcwgR9r ZjBcZnMyNFxxbFxwbGFp jzwaLGqnqnL2KDidoapp SASnKZnkI1kxTdDpFQFu qAcjNMhfi1IhLQThRXQa XzllgpI1HUTCj62eYKXn s7ZxZJPrjJ8igAFdRBok tiLqbNI3MKqohbLqRoZd giHwCDDghS4hVUFdYU9f ASVooeZgjn2tugPmLQVb YBMjQ6OajgtscQdgudVm VXRjlh4qneZjENJ8JNXM YB5SDEXwTJFsq57nREZr sVjneL2vuGPnnuMvCZGk c3WusY1omODGUOGvK8xz SO5mSQhyn2RbhEBfmAPd rTE8YZGux6RkDhXdqlKz nEMzaLIpX2SydLmsK3lt EEWoBEMidiBwkFVyo1Yx AQLtvEK4lXApKH9LQpRD z02uNEPmZHLQqbRpMIJb eQckvZZ8fyC8rS6oTnQE ZiBhcHBsaWNhYmxlLCBj f995gs8dkjK1WXIkENAg ephtu5RbAWLiCGVkfY67 PSZxCOCdch3rlnwddYBg kcVeT6Ptgwr4lT3wSOXt YWluXGYxXGZzMjJcbGFu ZzEwMzNcaGljaFxmMVxk SvIlKOAuWDpoV2nrDjZl ZnMyMlxwYXJ9 [facility]ation 2022-11-27 23:08:26 Test Item Value Reference Range Interpretation Comments Materials Received (test e4rfcWAfBBZosRBeHpHw code = 9973) NZMjPRKng6cpBPJwyYAa ZzEwMzNcZnRuYmpcdWMx STNhDiSyn1isg572gEKi x3itBKPzCvF5eUUdBLUg lZKgD595RAYqZGrzu7gf m7EaIQBaaFRbt0O3GRVA daitjHu9gRwxN14oq3A4 IddjA5dbBJNiWJVeH0Pn RH0hXCAhDai5LXP4OFW4 VNLrEZRcJ6DyUS3yBMTl vSMmYOw0o6vtkYytRNOc LRD5q4fvYQahlgPtMH3r cy1npKr5p6cexjGzLCYd JOYmzXLDYMAgJ6VqyVyq Ig1itUk8dPoxGvmuFKO4 Lnx6EW4nvx35ssm7jEcu BWAhipbsRyG9LUpfLQEx oplaSAp2YZcnVPCmsMdf MFxtYXJncjcyMFxtYXJn aSR8FMFfaFQxG1IwETRc BPngEFXjhwh0QsPfRe4j vXJfpJqjRVfnc4zpd0se hZPhWlo5HHPdIlNoJycu QKqpj1Nvz7yfTZQtqj9m FVO9hSBofCbov3D1nEMz DEEjnUUjydXzOCPxeu81 mGAsvCLzjUZvuj4pdvYy kUEihGXzQGM1hVRcpoPd QWPxdBRlMXZoBT4naJZe WCYbqD2psjjiDDXwVwBw scuzOHMmwZudzhRuCb5o dGsgQBO4URjlB1kimE7d XbJ4MKoaY9hcfN0dYBi3 RLpoyTN8PSVjgQ0xLE2p xejxf2hbAhOkFN0gvnvf d9ppWiAzKU9ffth4b4eb TME2NPmbVCImGyC4edB3 NDBcaGVhZGVyeTcyMFxm y644AFC8SpIjOFUnj6Zb D0MziYpxY33heVolG04w TYZpvCgxbZ1oePvxeM1o HsEqCnJbNMe1it52IXl4 ttlylOpmGGo5bpYaXSNx XEV4AIZgxLPqLLLvP1h9 htCaEZGkNNR0NTJisJCi EITvZ3e6cqGiYFI8XSr7 cnBhZGRmdDNcdHJwYWRk YjBcdHJwYWRkZmIzXHRy kIYjhJSdnGPvfV1xtKez SMLjqRNvrZ9aDOH0GPUg cmgzMjBcdHJoZHJcbHRy dm32RESebwRdiINcrMdb kCFtQOK0XYUyIBVjWFPy KZM9GPXzPgJkeeEiNQmz bGJyZHJiXGJyZHJzXGJy LKZ0ZNKzAaCslkMcBOcf bGJyZHJsXGJyZHJzXGJy NNT3KMPnLqUmbyOvNNzb bGJyZHJyXGJyZHJzXGJy KNZ9RYCoPjIrmxHuQPrj bHBhZHQxMFxjbHBhZGZ0 D7fyzLUaNQHdIJmgdOFt QJNkK5lfgNZjQKicWXWx cGFkZmwzXGNscGFkYjBc P7hcSFCiFpPuM1JjdHx0 MDAwXGNsdmVydGFsdFxj eJLzFUW4VQTfKCLlAZMw ROT0ELTxVeNseuIyPZrr bGJyZHJiXGJyZHJzXGJy KUS4LJLrIyFddgGoSVwz bGJyZHJsXGJyZHJzXGJy THN3TVFxYbHsxbWgOVfb bGJyZHJyXGJyZHJzXGJy QFG7LSRgMzFjwkSlAGem bHBhZHQxMFxjbHBhZGZ0 W4ifdYSfNYMaXPnvtSQc VCYcA2cjkXYxDAueDMKm cGFkZmwzXGNscGFkYjBc T4ljZQVyXaKiH3PisOn5 NjAwXGNsdmVydGFsdFxj fUTkLAM1WSNoADFdYQWg IMW4DXPgOtSvkjJsDVoh bGJyZHJiXGJyZHJzXGJy IRC3TQQgHgVitiZrLZca bGJyZHJsXGJyZHJzXGJy FVP0OBUsZbNgbmVrOXfd bGJyZHJyXGJyZHJzXGJy JFI0ZWRdOxBevnNlCLuc bHBhZHQxMFxjbHBhZGZ0 F0nbuNOjQEShPTytpWId AIXsT5msxMLaSBicVISp cGFkZmwzXGNscGFkYjBc Q1hlZIRhWjNiC8JyiZr3 AcKtTDQckwHoxQ43Jsly e8GuNCKmCFE1KEbiWVjh bFxwbGFpblxmMVxmczIw CSgyqhjxSFKyWMjqY0er JePzGCVcmTifOGytq2Pp XGYxXGNmMlxmczIwXGIg MRFfHKYydN6xXghzR0Vw vB8yHKrxHntqL1khYTMt i1DwvS1wPAkaeKVwtqtg MVxmczIwXGxhbmcxMDMz XKzsX3bbJnBbQFXevZfi JCajg8BnULMsPYHsOpsv eyZxVLg4hpLpELFtyUnc xVIxRBtztnUxpZggz3Cs mhDgvJzwTAPzZNu9rlMo uyeftMq8sUPihIwwKZTf sBmybV1wIbQzHlWrXYqd bGFpblxmMVxmczIwXGxh niosNJSzXTlxK9ixBvHy FYCbwRkjTCseh1AuDUOo CHXsJegptnTtHQLhO96u bGVjdGVkXHBsYWluXGYx XGZzMjBcbGFuZzEwMzNc aGljaFxmMVxkYmNoXGYx UYzjS8scDtVjY9SzPSLv JkXmcDIhK1kaA1XomFfe YXJkXGludGJsXHNzcGFy XTE6gNTqatYfeIQbkGIv HXKjKJfbHDZ1sYHhbpjl jNZaaubwTJgseyP0GBNt YWluXGYxXGZzMjBcbGFu ZzEwMzNcaGljaFxmMVxk LfHjUBEpLDxcA2rmXfFh X4DvYTSiVpCnTdCKVRNq aXZlZFxwbGFpblxmMVxm czIwXGxhbmcxMDMzXGhp D3slAgZpCCFpcLnnLDpv h4SaFHDuZSXcLpgwyzWf ODy0hrYkKFAfvZjuiR34 Hfvlcg81DIDcx9dsCBOh A8VpqYZfDCRypEZdNRyw MDhcdHJwYWRkZmwzXHRy cGFkZHIxMDhcdHJwYWRk ZnIzXHRycGFkZHQwXHRy rONkVMF1Q8d2abKrWXHw PFs6soHwOHNxNsHrnPFi ZEN7MFz4NytdrcC4rPSc Y8s5DihxmxGxQQwfxWXu jd27MODocuBsdBFqcTbb qCLaDLD8AWBfQIAkCLFb IGJ4ALKcNeTfxsFzWFoo bGJyZHJiXGJyZHJzXGJy NGC2VFEwEbItxsTeBZmy bGJyZHJsXGJyZHJzXGJy RRW2OYDiKoVgtwFoGZhw bGJyZHJyXGJyZHJzXGJy SEB5XNHzPvCzncQmXQxf bHBhZHQxMFxjbHBhZGZ0 Y0ecdRMzESLhDGvdeREh OAPeU2bkmZLnOZmpGBWh cGFkZmwzXGNscGFkYjBc C0ktILUjJuQrB6LtlNz5 MDAwXGNsdmVydGFsdFxj wFDeLQE5KNEpJSJtSDMn GQU8RLMoJyMlitTwNOwy bGJyZHJiXGJyZHJzXGJy EEN1FZGqQyVgsdJsBNcw bGJyZHJsXGJyZHJzXGJy XQF1VTUpOmPwsbNwWZjy bGJyZHJyXGJyZHJzXGJy CHN9PFIcLmCtrbNgGBqs bHBhZHQxMFxjbHBhZGZ0 Y4asuHDlBUUjWDfdoYRk ICTeA9ntrRChXFuqDAJh cGFkZmwzXGNscGFkYjBc E7tcSCShPoXvP9QliAz7 NjAwXGNsdmVydGFsdFxj xUNiJYD4YURyGBQrNESe LOO3UEFiHqGeedLjGXof bGJyZHJiXGJyZHJzXGJy HZT4ZKSmJkHlixQzFOyf bGJyZHJsXGJyZHJzXGJy UJN1LBIuDxPyaqHaQZna bGJyZHJyXGJyZHJzXGJy LVZ8JIBsCkMpprDsUIae bHBhZHQxMFxjbHBhZGZ0 K4dkiXMzTPKtKVdevUFg JZQyF6enbBOjUPgxEBUj cGFkZmwzXGNscGFkYjBc J7jgCHWcOvRnG2RcsIh0 VqNlLZJejmJhqO63Qnat q2XgELXnJYR8TNudGOxj bFxwbGFpblxmMFxmczI0 XHBsYWluXGYxXGZzMjBc bGFuZzEwMzNcaGljaFxm TSikJlVmOZWuZWuiF5qr NhBgF8ZnRLGvQaNsYV8a JkF0GXKjRNqeYCJ1VPRE ESSlHWNNK0YICairXJDZ J3XofYtacE1yHuVfUvMr JMyyJN2uSIOgF8evnISh UBMuUMCdV3zxJvTirV8f aFxmMVxjZjJcZnMyMFxs dHJjaFxjZWxsXHBhcmRc sQ11Saseu8JaNNOqSLP0 MFxzMFxxbFxwbGFpblxm HNromxL6BRFlJNfaVULc XGZzMjBcbGFuZzEwMzNc aGljaFxmMVxkYmNoXGYx XYgsF5qwJqDdQ7IaYZYv MjAgMTIvMTYvMjAyMlxw bGFpblxmMVxmczIwXGxh skgrQPTpNRbbC4ioIjLw JNLpmAhdXKets4XnWPKh JIFoLlnzksMlBFh5jlZn XGNlbGxccGFyZFxpbnRi vXuzh9BypbFdsXafWNAz XHFsXHBsYWluXGYwXGZz QtKvqUxmbG8pKvYhRsCj QEfgRA9oTENuB7jviVAh GQNxJNJjG9sxRkAbeN0j aFxmMVxjZjJcZnMyMCAx RdX8UcHuKxOkoShczI7i SnWfYvAsZAfdEB5bQZYc B7gurXQzRCJbGDLmU0ij NiXrhE5ckBbdZUxoMzPf ZnMyMFxsdHJjaFxjZWxs ENytjMCjSCJyl6lwQMAz FZMptILsHXX8rSFxxmLo fZsueYwwoM5iIeNgBnDq NFxwbGFpblxmMVxmczIw XGkqtpaeEPAfZNwnX9ib FyMzXFZchYfeXYcbj0Ox XGYxXGZzMjBccGFyfQ== Addendum 1 (test code = y3lfhAVcQLQdnTZjGYJk 37) PqfagcTcIDLsyIBpT0Mo hckeRWtbDJ2iCA9ilAft mRCykTWzVJYiFeYdn2xa n191sNVpa5vsYSZNNLdr ZNKHPPu5h9sdVHFAocym oQs5oAanK53ew8T8Ctpc C88tsMDwHBB8ATOkGENo yQFgGOYfSKD4TJVkiSWe J6mrELGvFG4hazjyLVbq PGwaGJDvzIE0ZPBwcWNn Y2CgVRIcNLpeKVFnuwj7 EkKeBd2hbXOdeAoqNScz YXJkXHBsYWluXGYxXGZz MjAgQXQgdGhlIHJlcXVl e3Xvc7CacCogAMLmPXI2 xU6tZWDqdAKtZ7qhjiT5 iTLoEn7ijD84kH4nYUP6 qSQkCJDju8UbIUTiLIVd z9UyGPOlDM8tSFjsmHZc eVVbyZUiIII2JQ3GEQPq YGUxk87zBdGezWNeQWHz jmSveWQlZVPjFAQ2oZ5m ciBjZWxscyBhcmUgbmVn GTZfjgNvNw9wNFeplmIx GXUcKWKdtWQdzW28kl6p oJO0u7VxCL1lB7VzQTPf YNw6p1tnGdNdeADuZEEz buZwoXQvLTOhISB6wX1i pnOvXDirkwDexnGcjV4a aXRpdmUgIGZvciBjbGVh hvFvJJ9GSVJSRTKgKHI1 BAUxSQDwoQNdnU79fl4l qBN7y9PiRH0bR5JlFJLj IVg4n7dvQgFwuVXnABPp ntUKFM5ZVDCiC0omjgOa MjJDMywgRGFrbyBQaGFy uEH0TDROz92ijL1lYFTH i5XxpFq8MRWEW07qEIGq O5NFKSwacQXcdGQyxbM2 aGFuIDFccGFyXHBhclxp GYCmFQKik3V6NEtbSt3u uMB5vY4fGNIvEJC6NUIp aXMgYXNzYXkgaXMgbWFu eTQhZ3S4syAcRMY4WPGn aWxlbnQgRGFrbyBhbmQg dDPomcLpRD7oxe6qdH8j CJniHZ04lR2GJS2BPWml T1mjowJoUiPLRr2qEUQg kNYcbUWfMa1abVCdNC3m FSLexj1kmYidIGEwjWWs IHBhcmFmZmluLWVtYmVk JNYvMPZuh6B0WJH5t6sa KjYhsuAOT0agCK70XVGj k98bGTS0r5S7WXnaAEAd GF3rRDIjtPokHURbRxKn LZFnQVW8QUY0sO6eSMbn xWmcSOFta3NvF6ureJDn ROF5BCIkASVcHZ44OxQt nWGmFJFvVIo1GCrsBSHd qPSvrnVaEXVypkF3u0Ms YZUhIELhe68jVO8yo05w PHebN07ip3EpIjNfv7Qj v0DdW7eblTBdxSsyilPr sVKgZC2pJMAzvtFvkM6a gWZys9XshLraNWGyX10d ToezEYUumO5hvMBbbwEp z7YptwGxNBHQEszmxTUe L6FlL1QrZFHdVLZmczB7 qWXivdHbEfXqSN5vTCOL KZwmSJO4XXjliB1bXDPh kVpeDHe8rEOklXCnzW06 OEXzdhAsrBLsf5EmN6Su eJLib6dbj2nlUxDzDB4z rrVqz4QmWOO5IWjcjK0x ND7qXONenSHigzObzuJa oLz4NSv9hDWrh7U2cLIg GCWvLFZbGVSsh4UkEBpd qlJiidF2jABnkTWxr2Pc THBbMPYdfA40mC4eUB9c jJIxPX5swSUok1ZhU3a7 x4MqAXReqDKww8CdaL7p ndjsp5NfBY65TSrxoUJm f8i3lFfkDIb0fWUnTTSh dPG3cRNxhO64DYiabvRp QsDlBT5rHQEjABOsWDOu ayUfk8m4ENQ0rF6qhlPn ZWxscywgbXVsdGlwbGll ZCBieSAxMDAuIFRoZSBt OErpvDYwQLXpm7GuECla IOPsHcyiCXDxGDVkC7EM OYHdCV9dmEKkQMrtADPa clxwYXJkXHBhcn0= Diagnosis (test code = u9vobYYjMUTbaWLgJWHx 34) YgfgfjHuSBCnxCCfK1Fl cykfXQblHH2mJL9eeJay fGPdzOLoYWAsUlEiy1ua y552aYQcm6koYLSPbdzh yFv1nVgfN36jz9N3Dxkn I7axAPIxHXbyIAEeTPmo uWJoUGi1LPSltNTewxOt QcNqXXDuoOWioRA3HSJw BV8ofawwBAymEJpkWBFa thQ8YXViwNOqL3EbNKMp FF0yfnjkGHT0IUdfGFUj NFB5ErQwMZXsn7Fimxs1 MjBccGFyZFxwbGFpblxm czIwXGNmMSBPdXRzaWRl ULdwDnqOCkG0SkYcQZsv J6EoJNInKndUD3yZNTVb STJWBvemV15rgYUgpQMb AG6aSWKpHxQ5QdLfYyFy EjnbHNOoB9QkIVCocgdc kFpvLFffvM93FtIaMxSd m2KsYJJ0logyDGLpn0Pb mDlrhFNgCIznRoR4NKvj zL49PuAugPppChO1WJRN HWHUJ4mLGIWOO4UVObCJ SWPNBH5KIVNsFNHHYPTK ELESSb9jIJzWAAXyFOQi N24atBGwiPzjLUVmkUYf XGxpMFxmaTBcbGluMCBN RFcvRkxaIFxwYXJ9 Comment (test code = c5wmrSFqLSUjiHUeYNKw 9835) OwnuoqZuGSUitCSgA6Gm zotuBAasWN3bRW9zfGsj kTRqyVFnKHGcSlFyr2jb x440kHOgt5ybZZZRfsbf lCt3rErpB26ps7I0Emmp E66wvTOsWAL4QYQySOWr vTXaNSDhBMX8UWNzvGYz P9umKBWeDL8uujtdFZhm SQflDYAvuVT2KZQqcNNw K8PqTCIwDBefVDUcuhp2 YvBwVl2okVXjqUnqUBpo YXJkXHBsYWluXGZzMjAg P5DnxDq1dAAqAQeinCQn t5tob6LlT8rwjPfaGZdb i2NbkU7eAQZnnzIinh8k ZCBieSByZWZlcnJpbmcg wW4gjEf6wLZdl23or7rz xbU5zWK9FHHQQrDviLec bGlnaHRzIHRoZSBlcGl0 aGVsaWFsIGNlbGxzLCBh bmQgcDYzIGFuZCBwNDAg eXgciWcwO7o3neM4uOUe bXlvZXBpdGhlbGlhbCBj KNtsbv3bUQDpOBIyq8Bg oC1ju0u4YDBuXGSxpH53 gv4ewOMqw9M6gORoeHYu r7DrpX7dyTj5XWMpPhG2 hCebBTFlDIZauKZsL6M2 lP6gVtAguOTewS== Biomarker Block(s) (test q1gzaBZlCTTgkQQsIDZp code = 9841) EqyxrlJzRUBddWHlK5Fb dqocDSluPK8mPT8boGqo sBDezIWdHNUeBrPgq9da f580mZYen3lqAHIVdaxi lNy6aFzlL74tu8U7Phnv Q1rvSCMrMPalWGMjRMlu mFUhDVl8WIQjoLCzdeHt MsPjVRHwgMKckKF6CLQb DI3rnzegOZkoYXqzEMWb sgE2OVHxqNLnW3RaIJYd NA6itdxaAYH3KDizKBHn LVM2WeMuFBFek9Vrozb8 MjBccGFyZFxwbGFpblxm flFxSNP4vK0aFVNeu8Ko OiAgXGNmMSAyMjpJUzE4 NzBccGFyfQ== Disclaimer (test code = t8jfvSQhXPLhwZWbVsRl 9844) LSWtJMWow8peOHMhvMBi ZzEwMzNcZnRuYmpcdWMx VFEzSjXoj8fnr551jLQc q4qjAGUgJdG6yGZgHDGt eOXgR232VOUrNLdwx6hj r0YpJVIljQSat9L5ZMKA ebsvlVd6jJuuW13rc1H5 RlxvE4hdCVJyFRQcY2Jf HR1lNYPqVwh9HUY5NXV9 GLImNDAxP5IeFZ1dMBLo eQAyLJw5m6jogDosRRFz LHI2s8hiGIedrzIpOY9e ya2drEz7g8sfvnBjITEt QBGgdNGYKCGvB7JvsHwq Va3roQn4yDasXbagBZK6 Ayc6NX4vay39yps7yIcv CTUwzdipFdY7MXwsSQMh myqpAMk3GYofWRZhcJW4 FUGfqEReQ8ZwJKDzMN7l hqy5HAC9CAlnBDEdDwI7 NDBcaGVhZGVyeTcyMFxm x927ZWN4WeIzAX0tG7Yb h1L0dR4kaZVvADDmgUAb EmSrKYSnvx9huUGpDFiv z8AlSHZ0pzR2iKQwhGDp BXRzUA93Hwurb1QjSgxw IOI1LYUoydPuq8Rny3zj UcOyzbRxG9ynY6ErHBTy GRGeNVWcVoWnakRcs9Db e9VdfONcbHv4s5koRQEy IQUcpMddk5toXMS1UVEi Z9U3pCTwa4znWZvtSNPf mLY9drK5ZXAhtKHuY7Np vP6oCEIiOP8xwii2q8zw FKD8OPykPHGkDfR8tdM8 NDBcaGVhZGVyeTcyMFxm y781AET0SwOzUAQps1Xe S9OsyRgxU59vwHrsF42m NLWaaDsrhQ6zbPzraN1s ZjBcZnMyNFxxbFxwbGFp pfgvAWonyxS7YFdftaii SBKnAKckS4gpIjUsIBHs dSalEOagj2RbGJGpQJSd NtyimlS7DRMFs26aNFJa j8SsQWTpyW2rwYZuEInz oaMsgWZ9TRezjsHmCvBa thBuZWVzfF1gTMVwFH2w RFVqwxYnqx5ppvXeYKLs CGPwX4HtzzmwmRpcpuEj QQCwmm3ghsVjZBN8KNYK WM6ZYNAbVVGrn06aJEUi nJwahV6rjVJvwsCbYKDa x5TneU4xaPOQHOVbF9mk OD9dMPogo1JvwEBzkWNv nQS2DUAdj0WcXgZjriFs pJJexMCeD7HafTtiB1rn KTPfDXZenqVqfBEyg4Aa FCOtwQH4hOSxMQ4OZvTU a19mOBCaAXAPvmCvIFNs bHhfxHX2upY9iR2cZkDW ZiBhcHBsaWNhYmxlLCBj n302yw9wtuC5ZPQvSSHu ekcxn4OeHOKuDOJobA96 VGFvEOUrbr1oyjgplSVp tjCrE7Qvcxg5gZ2vFILs YWluXGYxXGZzMjJcbGFu ZzEwMzNcaGljaFxmMVxk EoWhBTHbHInrT3miMuRx ZnMyMlxwYXJ9 [facility] 2022-11-27 23:08:26 Test Item Value Reference Range Interpretation Comments Materials Received (test p7fbvMLmBJOiaPOqQdYh code = 9973) VTEpRBCpa9pyOAJgzITc ZzEwMzNcZnRuYmpcdWMx LLKdQrIdz2gfr341gUWg x0tqPRCmOeV2uMHiWHRx pCLjA747REDvPKkzn9kc u2GvAMCovWSjd4A9FRPT aehskJv2pUzvC51qh9F2 NvrtW2acNUVuWSEcW2Gg YP2lWJJnSbs8SUK8EPB2 KYWtTLEtZ4KzNC7hJDYc jEQqUHj5v9mzeDxsQYIg RPA8n5ysEIoexcHsAY3k fh4tsWb3p1ssywJdSIJd DCDkjJUGHCXzL5DunKkn Ay4opMp3yBdoIlnrMRV8 Tmv6GP2qfh42mte6wUuv TDTijarvKlP5PIzlNGFd bmdoDIg4MKftHWWssUmz MFxtYXJncjcyMFxtYXJn sEC0AGFxvLXaQ6GxZLHg MYyqQKNycny8BhZlSz4y jYJaaFwjZBjpj1vqa6cz iVHpQtp5SXFwTyWsFayz ICnrs8Ter3srLHMuhn2u SIQ6qWQslJzgp3F7xZNg RXSlvCArelFvNGFplv08 cOUkqPDgvMJxof2ygwOm oAPijTWuXCH4qEPyudCo XFIpqQAmQHZkMF4neCAj HIZwlY9gpgcvELYsVpGi vvdiGLXkgYcjuxQcUo1a rVfrXFC8LOwlN0dreB6z FhH8EOhzR4iojQ5iXCz6 DIlwcRV0GZVccN7fPA5w hnkqn7shSeDqEL9ggxod c3ziIxIgNE3vrdi0d6oh PTM4LHiuLLIpPeW0kxE0 NDBcaGVhZGVyeTcyMFxm t731KUX3BhGnNPAqk4Iq Q1BhdAgwL22auYotQ01x XRPqxIxncN9cwWtntD9o YvReOyKbWQv1pt42SPx5 fumtgMkpAJu1ueHwFNPv GXR1SPFdjFNcGVVhN3d8 jgTlXTNxXNV1TYRynPOa TSTuL9w8zuYoXSJ5UXb0 cnBhZGRmdDNcdHJwYWRk YjBcdHJwYWRkZmIzXHRy yQYioNJzoUWlbP6rkUyf QPEaiTHhyG1cFRB0SHOe cmgzMjBcdHJoZHJcbHRy sg26FFLhmeOzoDFfwKmy bZJqCUV7XNTjRFQiWGFt RGN5UFKaAsIufzCsBIrl bGJyZHJiXGJyZHJzXGJy XMR6QRBiTnMepgJpCQej bGJyZHJsXGJyZHJzXGJy YJE7KOHtJsGmjtRyZUlg bGJyZHJyXGJyZHJzXGJy XVN1NFNcMhHekhJfRBeh bHBhZHQxMFxjbHBhZGZ0 Z9fhuJXsLFRpKJbivCYc UMNgO1pbrUGwQSmlCOOv cGFkZmwzXGNscGFkYjBc S7bpTAWmWrHeO2NmnAv7 MDAwXGNsdmVydGFsdFxj mIIdXUC6MCPmYYHqGQJf QRE2ZHXkHeHlgsJvBNlz bGJyZHJiXGJyZHJzXGJy MQH8HUTiQgGuiqCiSDyk bGJyZHJsXGJyZHJzXGJy WKS2TWFhKdQeeaCvMZgx bGJyZHJyXGJyZHJzXGJy IKO4PAFeJqFahrDpUIgm bHBhZHQxMFxjbHBhZGZ0 Q7fywYYtBDWlLKevsVKi BJOtV2xgjLPiUIniAYLc cGFkZmwzXGNscGFkYjBc E5mpFSGrTrSzG5PocSw9 NjAwXGNsdmVydGFsdFxj cHTjURO7BXNfWXWzZRDh IVS8UBEeRyCmieHfUNqo bGJyZHJiXGJyZHJzXGJy ONF6BUQfQpMhmnLgLJoe bGJyZHJsXGJyZHJzXGJy GVA5JETbQmWfmbReMKii bGJyZHJyXGJyZHJzXGJy LYL3CTTxJfFrndHzMRyd bHBhZHQxMFxjbHBhZGZ0 B4fekUGzXHXaADuunVAl CRDmD3nbcBWbYSqbFHZk cGFkZmwzXGNscGFkYjBc V4bmCTJxViGjV3KrdMs7 JhZdSYCiyaMvoC19Qdbt j5DfJDVeJVD3FPwmNVbc bFxwbGFpblxmMVxmczIw MQrwtmqzGSGaEEnjL7ae BzUkYEKxgTxpTSdtw1Ki XGYxXGNmMlxmczIwXGIg RLMaZFVztC0rThzxQ7Vd oA1qYSuyYcbnL5erJCHw d7PuwP3tAGjgpINlpdcr MVxmczIwXGxhbmcxMDMz CYfdO3wfAtCbTOEdpEcj YPbuw8WyOHNbFSAzQuuo wbOjIZr5uhIsUDQtpBon mPKhDScteuVezSvnc2Fj mfMqjKhcIXTqEGp6vkCn ekcgyVn6wDMdfMraDXMt pUyblD4sWsFnOiNxOCsb bGFpblxmMVxmczIwXGxh yehnZZSdWDxqQ9xtGaGo TEMsgPpvQTdme8QgEUYq JITnSvwtivTfJWLmY12x bGVjdGVkXHBsYWluXGYx XGZzMjBcbGFuZzEwMzNc aGljaFxmMVxkYmNoXGYx UYzuI0aaMiEqK0SlWTCq NxQytAPsV2nvN8VnyXpq YXJkXGludGJsXHNzcGFy TFC7sGLypxEnbDOgpPSz DIGaEXrfHBM7oEKatfhq rTMtfevvTNgvbzW5BZCq YWluXGYxXGZzMjBcbGFu ZzEwMzNcaGljaFxmMVxk WpLcNWVcUNzbS2rzDpVy D0BpNGFmFbDzSbMOJJKn aXZlZFxwbGFpblxmMVxm czIwXGxhbmcxMDMzXGhp C4ynUpUmXNXupTdcEQcd k6DxCTKnYIBzNgmcygSi YJb9jqGwMOBgjJvxpR24 Dltxay39EKDfm4clRCTv V0OgaOJeXDToiXEqZRbq MDhcdHJwYWRkZmwzXHRy cGFkZHIxMDhcdHJwYWRk ZnIzXHRycGFkZHQwXHRy vDLbUVV7C0i2osXaECPj ATj1giSjENPvSlJsiXUk LSD9SOp7LtdodhM6aZBz T1f5YdplctVpQSatsKSm eb66EKYpawPqwISwhPmi cONmXOF9WGVqJXOjASYr ZQF1YZWgXvRjmrVlMMhz bGJyZHJiXGJyZHJzXGJy KTF4QVGmSmQhtyCvNYoz bGJyZHJsXGJyZHJzXGJy BBJ1ENDaHtLoxwBmFRpn bGJyZHJyXGJyZHJzXGJy XKH8VYXbAnCbdsBjWKjo bHBhZHQxMFxjbHBhZGZ0 K7asdPYcUJTbVHbxzCQt KHOiH4gygDMqEDzuRSKn cGFkZmwzXGNscGFkYjBc Z6ykEAYnIuPgT5EzsOf2 MDAwXGNsdmVydGFsdFxj nRCrAJP0GNLgLWGvLMXu JTG8AVVsVxLvqcZbGIut bGJyZHJiXGJyZHJzXGJy XYT0NLQvNtRzzdQzFZce bGJyZHJsXGJyZHJzXGJy RUA0FGYfOuMtodLdYMvr bGJyZHJyXGJyZHJzXGJy SWI3UKUtBeSfloYiGNev bHBhZHQxMFxjbHBhZGZ0 U6bnrPIpLBFsDCcdpFFh KCSwI0lyaHTcOSecUZPj cGFkZmwzXGNscGFkYjBc L9xvUAWqBeOxI0RruTz8 NjAwXGNsdmVydGFsdFxj dUReBRF9JEItZKDkNZSs FTB2TAUeLiPxiiPtTDcm bGJyZHJiXGJyZHJzXGJy JOY4GDJxPmGnfnElSEig bGJyZHJsXGJyZHJzXGJy ZJT2YTQrOjRcbkZzRAou bGJyZHJyXGJyZHJzXGJy PDV0VBGaLnDnqrZpYQup bHBhZHQxMFxjbHBhZGZ0 T0xaeASqDSBwSVgykNVc QAPlR9jbtCKgNVljTXKy cGFkZmwzXGNscGFkYjBc N4ltNEHeWvRzV7OroPc1 RmUoATCqtyPeaD36Uaft f7TrHGPmDDX0CRyaDJdj bFxwbGFpblxmMFxmczI0 XHBsYWluXGYxXGZzMjBc bGFuZzEwMzNcaGljaFxm QYqwGoOdCBNxDJqtF6it YuMjN7MbMRMwEkRrQN4p AbL7VWYgGXswAAV5JHRJ WGSjUEDHK8NLDirnCWWX Z0VpcGocaG1uTzMnLgUu ARveRZ6pMRLkG7cfeUFw WOEgGZUzO9xbTeCtjE0s aFxmMVxjZjJcZnMyMFxs dHJjaFxjZWxsXHBhcmRc cH00Hsrnn9SrTURjFNW1 MFxzMFxxbFxwbGFpblxm ZVzkvrE5OSEbFVvlOXVg XGZzMjBcbGFuZzEwMzNc aGljaFxmMVxkYmNoXGYx EMsvD8lyGzPoI6XhUEPc MjAgMTIvMTYvMjAyMlxw bGFpblxmMVxmczIwXGxh eutsIZZhINkdN3dtZfLo DOJgbAnsFOpro5IrPHEr WXFmUndgfmHuMGw2ojWx XGNlbGxccGFyZFxpbnRi xXflk2OybsJtsWvtGDMx XHFsXHBsYWluXGYwXGZz WjOatXzseQ0xLaNmEbAh VYmgLX7hMSVvQ7zlaANt FZCzLASqJ5hpJgDkxW9d aFxmMVxjZjJcZnMyMCAx FgQ7QmLpHhBobOpfnQ5e EkYtBtJqNObhRM2oLPQb C7eklPYcVLOqCTQxT7fr BvAycP3szBydNWfnKbId ZnMyMFxsdHJjaFxjZWxs GLxbtDJiBJOfk6miNBIq NJLsyCLoORD3qYNpxbZs jMgucXehtR2iSjCaWsGk NFxwbGFpblxmMVxmczIw DFglrecpGAVyRMhrH5gz IcQsIPBxrBvuEXgbt5Hg XGYxXGZzMjBccGFyfQ== Addendum 1 (test code = b4jeyRJcOXVufFLkSJXg 37) HvaieyCpMFQnxJNyG2Ae taabAAqcNX0yLY4wnNlp sPVzrIWnXGSdVeRrp1tk f793aBLzn1nnASQRWAbp GCNYZFj9i2pmMHXGtexd uDr4zGkfT86jv0U9Ordk H53iqHOqEGR6MSOzJXYl tVZeDRTaOGF8QWGuxEKd F4isCZUcVU2llsjxZWrl HOpfKNRdlSU7SQTmyAEb S0IgZRZfIRglZFVvrmk7 MnGlJv1mcRLkpWbmZXqa YXJkXHBsYWluXGYxXGZz MjAgQXQgdGhlIHJlcXVl p7Abw7VkyHvhAYDoHGK1 rZ5oOLKnzSLfR6fageX8 fCBnSw1zsK31zK5dGAN0 bEPkFKTok1GeCMIrNLXd e1DsDGGuKD1sLOkmwEUc aSXkoWXgHZH0HV2URCXs RZHgu51nMeGneQEdZDKd cbOjyJEdHPXjKIO1kO5i ciBjZWxscyBhcmUgbmVn SIYwfgKzPn8vGMfitoXy TPVnDVJyoSYvwR85tw9a bZF4j8IaQG6rG6NsGVFj RZb3l6oaJaAtfDKcYPIl njQxiNBiPAEpGOM7bT0y fsMfVIghxbJsuuSjjD1l aXRpdmUgIGZvciBjbGVh odNfMB3GKUEFWNBoACV5 ABSgQAUfqPHzeU25ea1j eCG5o9UsLV9eJ4GcGNPq KKe2a2bbJlLbvVPoHSEl zuPFEH1LAKNmC8tyeeDo MjJDMywgRGFrbyBQaGFy bKC9PNHXx70eoC9xZQHI o7CteMe3JNUFZ79mOTOv U7GIZQnxpNYorSPgpkQ8 aGFuIDFccGFyXHBhclxp WZGyDPOjr2W5ZIshIr9k yMZ2fN9rKXWuTWX0RWSc aXMgYXNzYXkgaXMgbWFu uWEcY1S1chIkUVU3JUOk aWxlbnQgRGFrbyBhbmQg vLJzbhLtDU2hfv1crU2v EIrqBZ79oL1FDW7SJGrr T9mdufKgUpPWXe2tNWDi dUXcyTEcKl5xbNAqUT4z EYFzmr7paUxzUOZilQDq IHBhcmFmZmluLWVtYmVk MTIqAIOob1A8OKN7x0ab QvHtrrSLX2yyJJ47EAPv w79cVNI2o1O7MDruIVXx UF5vIGXoiPgwMYGrYvDw FRZtJKH8PJC9wD1lYTkf pBvoKIYwg8WrH2dsgQKv AXC3WKJmBLGuRP20SwEb oKOlTSCcBGe8JLzjXLCc sWUqmcBmPYRclkS0z6Jk BJGhXIXom90yRX6wo95g CJazF46bw4MfIaRvg1Kl x1IuF9gmbDBkzUjbnrNr uMPmGW7nEJLzwbNiyX2s iVNki9FzbZsvXHCxE17g LeyuNDQeoK6zfFArkhKw w6CesiUqUHMLImsosRHe C1MuX3OaXBNsVHCinmZ0 gVOfyjApDoNqDO4aOJGN YXzyIPP8WPphbP9hSMEw kXkjILt9vGOlpAYfzJ38 KSSprrInnSYyl8FkE8Sg iZGtg8yuk9fcCdOjNQ9u zyUao2MkMEX1DWjsdQ1m HP7aRVWgqPUffbNrlgNy tIk0NGk9sIQth8D0bXUf DRIzKZBfGRHbn7NpTWob pcSzbpL3fFFkhDKnp7Ob MKPfLLXvhG75bQ3yKZ4j lBNxJR8ahYOry8VxN2x7 f3NeSNWkpIPmr0YbjK8v jyhhv5TwCV30AMrssLYq x1r1eNvcCUa9pIGpOHYf pPD3vQPbeO20PYxkyyEe VuSnBF4wPJDmKUVvHZFm hzIdv7q7URH1gF6gbjNu ZWxscywgbXVsdGlwbGll ZCBieSAxMDAuIFRoZSBt WQtlrYIiYJTqv7BePZbk DZMaDfgsKDPyUUPeJ1PD KUKoTY9ygEYmQQlaZXEl clxwYXJkXHBhcn0= Diagnosis (test code = c5vawSGiSEUlqQGpIEIq 34) XlxhjcHwTRUrqUElE1Sd uufoUKirCH2mSS0uoMlw qLSmfVUqRXXqZmWnw6ca j716yNOle9akLBKOismt zJk4sIpnD11ha6B3Tjzd R5hpGPLgZQexVSViTOma uCFpTJb0XECnhLQameFy ScQcAVHfoTOarQY4OMVr OO4yumbkQMrrHKuxURDn ncD3QPXpcFMhN2YdJQBh AL0acoppPPK3HHjkMUSe PMZ6QePyIMGaa1Inrhp7 MjBccGFyZFxwbGFpblxm czIwXGNmMSBPdXRzaWRl ZZneZsmWHqR4YbGrIKgd R6KdOSLlRqzRW6pPLXAn GTGFJiquH94yeVOjzNSa GA0rXHCuFyI4ZyAoCmUh HnrfFIKlT7ZrVDTebvux qFadSOdfxF73LfJoKjMx o2VrMRB6dsdoJGRge3Kr xNoujSVaDAupWaN5SUpr pS50LvUutOeyYfI1IUME HJSHF7fNTSINZ7VLOaUK SJDSWV5SHXWsACGEDKCJ XIQCOz0lZGdGHQUqXOHb R30aaWJfrLitGXOuyACx XGxpMFxmaTBcbGluMCBN RFcvRkxaIFxwYXJ9 Comment (test code = x5lkbWGnDTQqyLCmSVVu 9835) EgtvtyNiWUPylIDlU1Px fylsRPhfEZ4sME4xnOto sXMneWUoQGGjAmYmd3vm q607sSXgo8bfOLJGxfsf bSe7tXksN32os5A9Bbqr U52lcRKlQPY3LHUiWBFi cKNxLGFkSWB8KSFjoDPc A1gsJJRmAC3cxzvwDGnu WTgiLTYboUY7WCOwcMFv A2VvFGBcEPovMIAzdye1 GnUdIv2zcUGkmWfxNPuz YXJkXHBsYWluXGZzMjAg V6PkkOy1aSSlXTrdxXYh r5pir6PeZ6lprMuuFFrb o3WydN6pUWClesHdyw1u ZCBieSByZWZlcnJpbmcg eE0tmIz2lAGyc02os6kg uiG5oMC3EOWGYgNsyEyv bGlnaHRzIHRoZSBlcGl0 aGVsaWFsIGNlbGxzLCBh bmQgcDYzIGFuZCBwNDAg eGfxiDglK5g2slJ3eYAa bXlvZXBpdGhlbGlhbCBj LEyucz5cOAFdZVUzw1Mu mT7yr9k7KEHkHEUyhO55 tg8rpFVlr6P8mKKaoCSx j2XpiU5gcYs4NEAbLbP6 bCbdJSQeSDCgmKOmW4R2 yU9vLjWidUAxwR== Biomarker Block(s) (test l3cgmJKxUZXzgHYdWGNm code = 9841) AzojcyDhBXQgsQChS7Yz exedBTeyGS8vTL9thFhe aLLqqYCwACTyEkYdk4jx g347pRRdn1inBQMMutrt rVy4zYydB18nv7N0Acxr A3hmSXScMCzcGZBrBZuq dEHmOXg5IXRueQBguyGs YnZaRKZdbRNnaGU4HGLp EC5kzdczOFumXRraCVSs aoW1UGNktNRhW3EcMSMi QA0jfbvxANU7LYyeITFh AGR0GkCpTXUch0Kgite5 MjBccGFyZFxwbGFpblxm kyWzRSO1lK5fDLZpu4Bo OiAgXGNmMSAyMjpJUzE4 NzBccGFyfQ== Disclaimer (test code = i5qycOCcDMSuzEPtAcEe 9844) EPTzZJCfn4gzONHyaSHa ZzEwMzNcZnRuYmpcdWMx RRMnZgLbz1vhc221pNXz r5uiCGOaUeP0gLKsEOKx lFQgN035DHGrDDwqn4mc u3RaTEZejZAkt2W0XZSK xecmvGl8wHbfC98se2Z4 XchiP9wsUBOgYGDaO4No FA1xESKhRqn1XAZ6XLT7 HUKuUDRwP9MzGW4sRUUc tLBaLFn2v1usdRlxUUVp TYV1q9jaWVzndlCuIE8m wi6rgZb3m1zdivExNNCm ZNYpeLIDHFDuY6XcpOxf Pf7nbDm1rRulDbhrKGG4 Cxk3XD4gcb46jfn7zTlp UWFjrxenPfX6HBueBEDq kierDRf6UAgzOSTjvBT8 GBDbrYCfD6MrRAIkKF0p cor2VGH9BWcoKSFyRnN3 NDBcaGVhZGVyeTcyMFxm v802QXU1FoPeDX7lH5Ne h1Q5bV4gjTAuJWRnvDWd ZbYhLKLedx6zzVJsSRwj d0UfIWH2biB5rHDqxKRm UWXnTL99Brtiy2EiFyll EVD8WQFbmkYxg8Hqt3gy XdPebgZoC9abT5RxXRKl RWCcYIDiYvUynwFuq3Lf h9SktJRwcSq5t5xiGRWz KPPazBgea5fmRDZ3NPUc O5S6pWFlx8cmPVwfJQZk oFN7mpZ2KOUfwNFpT5Cj uR2gSVTdEZ1txjk8t3hf RXX1BGwlHTMaHgT7tbF8 NDBcaGVhZGVyeTcyMFxm k259OIJ7UeVxSZVvb0Xi J1HhvXdqS39ioLqvG27c YAYwxCpqoL3ceAcrnW6t ZjBcZnMyNFxxbFxwbGFp ujwmFYugsxJ3NEiqblkj GZGpTJfpB4gwIrCjQYWx dRnhSKhho0CgXFDdQQSb JeogijB5HEEZg22tUMCx p8XjVTPfnY8kgXGmZXgr mvXzpVI2LFrtenSvVhFl irSwUGQeuI8sSDWlVT7d OYUsujGroq3hdzGuWWRj YAHoF0DxkgpozStuvqXi XGDdfk8cpaVkXMB9PWII EJ9MGGQbCJZhb38dVZWx xLfsmZ4ldNEcbjBfDXGf s1DrzN1xvHGBQGHyC1px WW8hEPkdh6HhpOJvlBYa nON0PZIah8SaOpUuhmWj oWMtgXHpU6GksIwzO9lm LYFhOWKqyeUmkHKtx6Js ERZazFV8eHWqBP3QSkFY a89gQQYfTCKUitWcBIRb yFdjwQC0zvW4lP2yJdSP ZiBhcHBsaWNhYmxlLCBj v105vf1xjoU8UCEhFXOf pptxx1SwIMLeIPCjzW19 POTfWBDani3vdkdctQHq ywFvB3Mfvji1qA4xOPHs YWluXGYxXGZzMjJcbGFu ZzEwMzNcaGljaFxmMVxk HkCvLUQuBAvrE9qkFzIf ZnMyMlxwYXJ9 [facility]ation 2022-11-27 23:08:26 Test Item Value Reference Range Interpretation Comments Materials Received (test z0ihzYOwSCYkpMTaMuHd code = 9973) WKSjHWAua5gcANMhoXSa ZzEwMzNcZnRuYmpcdWMx MZOfCdGaa6isl062oHCm m2xjKYAfCxZ8bDVhHGAo sXGjH982SFKkSSrir6vi p4SdITEucEQas1P4UOGA oubybQq9fIsjL02er5I9 PdudL8omAAYiWFJiH2Qw AO7xTRFhIzx7OHQ0DQH5 HFKxUKElT1EbPW2bCECh rBIjMCh8z9dapIjhMQQt UMY1x8elDYgfwbPrYX4s kj3jnFu0m6wwchNqGHEq VGGksWBHBKSkZ0IwmHpi Ih2xtTw3zSxnIuhiLDC8 Tbq4RA9tvm76qyh5qKwu SAPcomsuDgU6AYwdZPEu uavcNZb2QEivOWFhiVfi MFxtYXJncjcyMFxtYXJn sIE8AFAaaXSoP3DlWUXf LTxyVHSoprn0ZnRlBv8n uJPtzFssKQoew5ljd4bt iTQuXhe6CHQmVtByVfbd JBkut4Wig5bvNZDwro6a ZMZ1nINkqNztk2X2bPFh YEFrjQGmfmOpNNEjxy04 eHUomXOszVGotn6tafId lPYydTLaXQQ4lDOxqgCd BVYugRArCXLkAS9gsYDk ZTUhgE4pspqbDKJsOyCe qlvfDDRbyKhataDlHe5b iVoyPOL9DVxgM5zzyG7a UvI4KShbF3eimH6mPUv3 YJkhzCU1EBKgeO1tSA9p rtodu9dgBcTeQU0xbvmn w4mwQrZlRQ7lyoj5k0yu KUA5YXmiBAZoNsH9ldS9 NDBcaGVhZGVyeTcyMFxm p705NWC7LzTmODKvv3Ii R4KwwIneZ02ekEthQ04c YWVmfRmyrN2tgIbmcP4r SqGeGpNxHSz3te85EKn5 kvrsfOfqCWm2rnJpPHXc RLI1RUSnsGHcOPCmJ4u4 geUfDNOfBFD1VUAnvEEi DBCkK1s8qlItVAP9OGo0 cnBhZGRmdDNcdHJwYWRk YjBcdHJwYWRkZmIzXHRy gVUzpCFofLResA7mlUdm PAXwdOPpdS2rEMK7YGTg cmgzMjBcdHJoZHJcbHRy uy13YGAaqmEiuOWioXxe vFUaBIG8TAAuTXPxDGDs QEB3LUKrTkNfvlJoCGfh bGJyZHJiXGJyZHJzXGJy JZA5MTGhBsWimpFrVFxr bGJyZHJsXGJyZHJzXGJy QBQ9CPBrDnDgxtCwRPcb bGJyZHJyXGJyZHJzXGJy IAE4VKNsUoHproYaXLtg bHBhZHQxMFxjbHBhZGZ0 W4sobTGyFRWcYLsepAUm ICHuX3hooTJiKJhwUYHz cGFkZmwzXGNscGFkYjBc O0ufZMSzEhDyW2HmuXx7 MDAwXGNsdmVydGFsdFxj dHLuFAZ8RKXfZWQdEMIv ATM8RAWwDqFdhdZsZRwo bGJyZHJiXGJyZHJzXGJy GXE4TCXkIsBaetXlPEkp bGJyZHJsXGJyZHJzXGJy VMQ5UZXkGcBrpxAsUClc bGJyZHJyXGJyZHJzXGJy RAU6OXSoAgHywyCeVBbp bHBhZHQxMFxjbHBhZGZ0 Q8qgfIOhHQYoVVlwuDDx ZQAoD5bptTImHJhgUJNl cGFkZmwzXGNscGFkYjBc J9xgZIJzRqTfM7ZgpZt4 NjAwXGNsdmVydGFsdFxj rVQkQOJ8EDAqPPTzEOQe KOB4CYZrEcVnanRzFRyb bGJyZHJiXGJyZHJzXGJy ARK1ROSeQkGigyHaRQxu bGJyZHJsXGJyZHJzXGJy FVT6NOFrDaIkiiEhOCpb bGJyZHJyXGJyZHJzXGJy SSW9OOOsTgSwjrGrBQwj bHBhZHQxMFxjbHBhZGZ0 P6iicSNlEQAdLTzonEIc ALGsI6ghyHMeDVrjDSHn cGFkZmwzXGNscGFkYjBc C8xmRMAsHeOnA3XaoWq9 XbXoGGZjhjIwsN43Apsc o6DgJWQfTRD7PDefTIfr bFxwbGFpblxmMVxmczIw GCfkgdazZKGdGThjX1kh FsNdJRQygHjaOTitx8Og XGYxXGNmMlxmczIwXGIg PVYvWOBtmK0lLxagQ9Sm qW5hDQtgNosrJ3csVMVk w5JqlN7rUOaujLPwsywq MVxmczIwXGxhbmcxMDMz GQerK9cjXqLwGOSfnAua ASwnu9MpEUOqIWAtTslf imJeNBk0olUoZYKcuFux pLYxIGvnpaRdgDrma7Zy uiXcpXjbZOQcVVf2laQk rqqorYt9uHPkiXltITWm dOnojV4bLqRkAmDsJZsx bGFpblxmMVxmczIwXGxh yxytDYWlNHplX5ajNfZv THZovTckSZcfz4GyKORl YXLaHndhdoCdBPJxN70c bGVjdGVkXHBsYWluXGYx XGZzMjBcbGFuZzEwMzNc aGljaFxmMVxkYmNoXGYx EZxwY6tuBcPzI1AeFJAv OkOhxALgK5gmN2IxkOhr YXJkXGludGJsXHNzcGFy FNP2jKTnyvHydENdaVYm RCPeJNdnXKS0pUVwsrpq eIAdkdujHJlzweK8PCHg YWluXGYxXGZzMjBcbGFu ZzEwMzNcaGljaFxmMVxk JsCtAQHhEAqpT4ojXvDr Y6BqLPTbPeUaSeKQWFWz aXZlZFxwbGFpblxmMVxm czIwXGxhbmcxMDMzXGhp I9vkVpTlOYIrkVzvSThr w4XxWTErGWWaUtuyhtUj ROh0rfZlRJDxjNytqM03 Btccrk99LDKan1duGEVc C5PakMHuWGFfhXOpNQtl MDhcdHJwYWRkZmwzXHRy cGFkZHIxMDhcdHJwYWRk ZnIzXHRycGFkZHQwXHRy dUByQXV6Q7i8bmBuTKOd FPx0wiHyEOUoCpPawLNi FQT1QOs5OiwuujC1nSVe F7l8ZgnahiVmZTiauPZy bv86JSQthsHrnTExtUmd kIZtWNY3AQTjNDAoSVMh XIC4HQQsZvRipwAwATzr bGJyZHJiXGJyZHJzXGJy YHL0QVYrDkDirxSlWIbi bGJyZHJsXGJyZHJzXGJy QLZ8VZXfRaJxclKjZOhc bGJyZHJyXGJyZHJzXGJy MKU6KMNzCuTrwkWrSTrd bHBhZHQxMFxjbHBhZGZ0 M6imlZMuSWNkLIhybEPu UIRpH8xykASbFDwqHIBq cGFkZmwzXGNscGFkYjBc O5ddOJMeFkSqG7AerEj0 MDAwXGNsdmVydGFsdFxj nHAmWVH8LEApTBGtTUZf HQQ8PXEaPeEdtjZlXMbl bGJyZHJiXGJyZHJzXGJy BNZ7KHUlTbShwaNdOAxe bGJyZHJsXGJyZHJzXGJy BVU6GHLxQxTewmCqUEez bGJyZHJyXGJyZHJzXGJy KBO2NZHjBjFrkpXiVNsd bHBhZHQxMFxjbHBhZGZ0 U9ixmYMxHWPrXUpbxHXb UMLeE9ruvUMwWKwdQFCo cGFkZmwzXGNscGFkYjBc G9lgACQfDlYzT4YusOy7 NjAwXGNsdmVydGFsdFxj eNCvVPL7EACgAPCzMUSp XQD5UDKdDcSscxQeGTvb bGJyZHJiXGJyZHJzXGJy BFD1QJSbAgHnqwHgAHqy bGJyZHJsXGJyZHJzXGJy IIV7HMGgCuJzceTwEMrc bGJyZHJyXGJyZHJzXGJy IQE6FGZtIdEaqaHpAWlh bHBhZHQxMFxjbHBhZGZ0 S6bmmMKuXNXeZVuljOIt RZGtI3mlpFKpQStzGPKn cGFkZmwzXGNscGFkYjBc Z9rvXCOpRdZyM3TuaAj7 DhBtPOZbvwZovK08Xqfw w4TuRYOgTCL7GXcjMLso bFxwbGFpblxmMFxmczI0 XHBsYWluXGYxXGZzMjBc bGFuZzEwMzNcaGljaFxm CYtmVdPlUFFsFKokR1he PpNmI5IzROLbNuTkDQ6e RvC9QBLrVLpkOSV7DOWU GDBoQAHYI9AEEkyvFOPL G7TsvVlnxJ1uKdZcRxRd DTciJY3zDQZlQ1onmJGp HUIjCWUtY1juCpQjqI6i aFxmMVxjZjJcZnMyMFxs dHJjaFxjZWxsXHBhcmRc cB52Btwap5AtFQQnYIM6 MFxzMFxxbFxwbGFpblxm UJuxjjK3EVQzVHbrBOCv XGZzMjBcbGFuZzEwMzNc aGljaFxmMVxkYmNoXGYx HPcbG3gnYxWqE2TtUHDm MjAgMTIvMTYvMjAyMlxw bGFpblxmMVxmczIwXGxh mfauBPBaIXbaL8fvIqWu HIDqmGkcFDvkw6FxPFMm YYDvZnufioYxXNy0duVw XGNlbGxccGFyZFxpbnRi jWfgf3NufuVcgNrkFEWf XHFsXHBsYWluXGYwXGZz JtWyaZlyyE5dWdNzOcFv WMdbKP2bPPXvN6oukUPm EDReEUQcF8vvNcDibY6m aFxmMVxjZjJcZnMyMCAx KdH7BuKlGsHamAybaW3l FdPyYqQtHRqiLO5oEIXx P6kuqHOzWVBoIZKqF2mk HfBksA2nuOhcYHjhRiRu ZnMyMFxsdHJjaFxjZWxs JRpuzYQrYRTvu4ilKWYb EYBdnRDwLUG5kAWmwaOf gEokaWbehU0vFmVoTdBg NFxwbGFpblxmMVxmczIw AQmuwqbpHLHhLWhcG4ns MuDsLRUpqWofDUfch5Tb XGYxXGZzMjBccGFyfQ== Addendum 1 (test code = x6qdsJKcLPUgqZHiNVSj 37) WhnycsAoXYRnsZWqV0Fa fslmIDsiFN6nYL7spEzx mXOkrNAcKJMbUqVva3rs e979yYJhe6xyUECYUDwd VCCEWOu3k9pvCSOQspud mUk6gRgxZ24lp7O5Pygv M72shVCzQUV5PYUxNLIe mZQeXAKbVDN0OEKigLBh N3ooSAFrKS9hvnfmRBwb WHrtORAfeUA0FKNesFWj O9SeCROkBHhyAENuhcn6 DgYbJc7bpXYcsDwnSLti YXJkXHBsYWluXGYxXGZz MjAgQXQgdGhlIHJlcXVl f3Ifr7SbpQarNEVyWMT8 qB2eUGLhrBOeY6vukxA8 fNXhQf4inZ66vU9lNTI9 uIKdSZBhs9OaFUDhDOPt y9JeBAIhLQ8kVKqchAXn aBBcgVCiYAK2PK6VAACv HUCai16oMcRfuYLoIBQh yvIdbKYdMOZgUDC4dU1p ciBjZWxscyBhcmUgbmVn DZYjhzHmYe0vLXfevpMr TYVfESSipNTeaJ95tn6j pYZ2r5SwHZ7cI0FbNMEn UHr6y1eoCoOjzAFtEORg dvIeoFVmSGGnURU7xX1i nmVbFCeabvJrlnDleG6v aXRpdmUgIGZvciBjbGVh yfSoCK9EPWHYRSQrAKO2 KEUkZRBtyVQowX06ki8u cPZ1z4XlJZ7gN0EdOFFq IPx7o2deWcKvlGXsLHQk fiESYF5JVCJwU5laozMi MjJDMywgRGFrbyBQaGFy aHE3AHZVz47ieW1hPNTY a2BecOw3PAOMY72bOLEq Y9ASSZpreQTsjTHqoqS9 aGFuIDFccGFyXHBhclxp ONLmKYNuu5Z4RVtyGs5w aUU7mX7tQRTrNJW9JXJw aXMgYXNzYXkgaXMgbWFu dFAwC3R7hpVtYUW1GNEf aWxlbnQgRGFrbyBhbmQg bIFcytJqWM3gcq9crG3g SYlcGS75gF2AQZ7YXKvy Y6qwsbHbGqOCYl6rXSCi lALvhVXaLy9ygUEqFP4a DWQdli3fqGksAJLfxUQq IHBhcmFmZmluLWVtYmVk MQOjCOFgj3T3FKE1u7lv NbLwhdCTR6bqET18SMEa v57tPVD5i2M5DJyiYGZw CI7uLMYyyAvqGNKvUhEh UBZsPLC8GXE6nQ4wKQpr uIxlFSDrj3HbE6rqlVNv VWA2MGZnOAKuNF98MeFt yVFoEUWpDCw5DLugNBVw dDCmanBcLWCykdC4p1Dy HFVyVTSpj11mJA0ot53n CHjcT24ws1EaLbLpz0Wy v4YkG7jrpYJnsMrikuLb uCNpXN0oFDDbsmBrbX7k cJMgf1TzrObcNSBwH71z SgtjOZJceU1thPHswcJr k0ZncdOhSHSMQpovmQGw V3NmZ4BlNVLuWNYtopI0 fTPbpuMtWyDjRD9qTXGJ GPfjUJK8EGjyaT2bSMPn cRhuSKu8dNLspTMmgQ73 OIFvayYgsKIxm3PhX0Sb oKXpt4twi1fcRpRcPV4m mtUjv0OySMW5XYnpxE5z UD4dCXXhrXLbytKaaaXe zSb1GJu6jMRbu3J7kBDa WVSlZVMcVAKlt4JdRIgw iyJsmwT6lPKctSUfp6Vt CANeHKRaxC43tG1uHT1f eVSuHO6ygPDff8OxM0j2 z2DkGHGrrBGvs2OtrK2s uxqlw1ZjMR59DJsddTZa v3p3nGtzMKc7eCMhLBJb cOA7xDLfxY31PYgdclXf BcDwWA4tLGImROVuWNKr agIqg9c3HNP2uL6tslGg ZWxscywgbXVsdGlwbGll ZCBieSAxMDAuIFRoZSBt RZieaILmHHEnc1UaOThg UIJpJsrcDCAqMMNwW2SA DDRvBI2njHSlNUrmTYOj clxwYXJkXHBhcn0= Diagnosis (test code = t5wvmVIdKLTnzLQzLIJm 34) FvhnhoLoPIQcpUAxD6Tc gnxsCTldEK8tJM5liFqy mCKrlOZkVVLeTjKxy4xr q575lYWlv3raJHLVarqe lHl2xDieJ11uz9O7Qtfo J1syQJTyRIlzLZBtOIpw kTZqJZs6IOCitSAzmkXe IjCaIRIroYQtiPK1OFHm IA7nhbkyXMoaKDumDPSr fyD2UNQrvVYfB8UcUQZw UO6ycajeBAX9LPxkJDMf GNW4KxBbTGQrn5Tnnhw5 MjBccGFyZFxwbGFpblxm czIwXGNmMSBPdXRzaWRl SPevOzmDDaH4UjJuSRcg J0LxWTWeBifNJ4mUOGYh RDIFQxyuT01aeSQtyHHz YQ6mPAVjAnK0SeQwNzPw NqxoJHWmS7OtNLKlmtip oFfuCGdciU31EwQbUwUh h5PyWIC9jhasPIFoa0Gk xIwglMJwLKxoPpT2XUea aQ72PaBijVuyWmH8FCRS OYWIF8pPVAMCO9QHZmXU HETONF8ZZUXmCQDWGOEZ GBCRLg0tTUcWAVEhTMDv F92twVGtsRwhSCMzmFCj XGxpMFxmaTBcbGluMCBN RFcvRkxaIFxwYXJ9 Comment (test code = y3uthCQuNBYgtXLsZOUo 9835) BolivyFlQBBquOEsE4Ym kinsHFqtNQ5nGA4zzJfv kVAjaHBxQVXoJcSqx2ap j289iGMgu1roIZIVunje hXm0bTbrE66kb1C3Epop R48snWLiVAR2CKLxYDOa vMOdFRMkFFY4NCHzsNWd X6cqZKPoKQ2iresjDAhy HKcmSLDvaIP9AAQvwUKj J8AkUGGoGJayYNOoaxn2 FbHxNe6luEMkqPkkKXfu YXJkXHBsYWluXGZzMjAg H1ZmtYu4uNGyYBjriHXf a7ftx0KuL5zrdKzxKIpi b9KwqH5aDMGtqiZmti5z ZCBieSByZWZlcnJpbmcg kO3joSm6mDTmq43zo7aj inP5lKF2TWEYYcTeiBns bGlnaHRzIHRoZSBlcGl0 aGVsaWFsIGNlbGxzLCBh bmQgcDYzIGFuZCBwNDAg yPdonXicS7p0sqP1uJXf bXlvZXBpdGhlbGlhbCBj LAapet9rQRIvOEOkx6Ue qI9zt8z1WFReUMXmqD42 tt5fxDDkh2J4rXMgwUPu x8IiwV1vdBw9NMKpJnQ0 qRhsKYLcPCXjnIDwJ9M8 sL5hAwLhhLOihQ== Biomarker Block(s) (test s9rvzVMkVOTegYStBSNi code = 9841) RoqgajJsTXZerXYwQ6Yr yxshQIboXM2kKA8pxXaj hVKkjRUyNHZpSoImo4pi x881hYAkm3hwBIIAndqa cMg4mPbxV28fx5L2Ukrx Q8sbMLHhPPemZAMdZNmz xXWdFCo5UOChaQKplnRj BvDpQLZycOCovVU0YNBe RH0omrfrWRsvBKrjWWDh yxO3BAVdkEWtE1CnDAIg RZ7mqcaeMUL9CItzQQDk THR3BoOyKRYvj5Ukmfy4 MjBccGFyZFxwbGFpblxm uzMlCAU6rW6eUHHgy3Jt OiAgXGNmMSAyMjpJUzE4 NzBccGFyfQ== Disclaimer (test code = g6rzuYNlMWNujZWiGtTh 9850) JZZgTPNuc3acKVAhoSBk ZzEwMzNcZnRuYmpcdWMx GKXeMmYvr0mdm097dSEg p3krBIMrIgA3xUOlJHOs sGMbZ175ORWsWScdl3sa x7ElHFSkjRMtm5B1XPKY pporyRr4oDstK57at1N2 AczgK9gnUYRpMNTjS5Vy JQ6xXLVoXnp1LXN1ASZ6 XZHbFEGpB8GkHM8hZGOu qDEsYCr3o6kiwNwnQKTj HJF9t6bmSQylujIuJF7t px9alQn2b0aeewCuLVQg LTAevMHXXRJxD6BegIhj Ri0xnAf1nZhfMrkmQFR6 Mwo9TW2fwn71jrk6mRvu VGFapmneTkT0BTysHPZz sbcxLJt7NCngZHOjyQQ3 QUSniOOmB6OiGNMvWE2q uzf4VTS3ZBwhJGZwKtW0 NDBcaGVhZGVyeTcyMFxm d167JND4CfVxCY3zR0Ke f1H6zV9dgFCyFUBosQSv AtXtCWVpwj9ioRSiBHfh k8GoTPG3rtX0xCDamZIx NUOpPY25Fetqp8PqJasq QJY2IOGkluTjo1Xyn7my FwIiuhSjC4gnV7VaDZHw ECVwEGIbFqKttvYml0Bz b3JsjRNcaBg7v3ecFXWe NFJhzQhqz7kkRYS2MDIb O3X0fYTbf7jtDLcyZYVl pCC7ccY8DMScnQEsC9Du aY5vLUBmXV4brdg6r4py CKU7VOpqUCWrArS0hzO1 NDBcaGVhZGVyeTcyMFxm u338FXM4BbHoQCGfz7Jt N0AyeOfeG77jaLiqB34d ALJytPwzyH8zlLbrsZ6p ZjBcZnMyNFxxbFxwbGFp jgnmVAqwsdP5KRrbcybd UGHwNBuoW4rvJkPoRVOu yPlfELwht8KsIULcUAFt UepnytE0KZPSi46zBNYp a0HnLFSfqO3sdLHoFZqy edUqjTH3SHwwetTjLnMe dvRsYHTenA8eRCPzRF8d WXAzitYqpy5gffOmSMBr GGUtI1GurlxllMumglXy GOGnbj1vyzZqHSF5YNMW IA2GVGRiPXQsz49oIWLb jXiynI9nkXNeobAhSXHi x7ZhkJ2jxLVOYJXtT7jg DL1hUYvll0VlcKWzdSLp dAL2UAFmm6RoCxDvthYw cHZncUAoS2EotGbiQ7nv AHZeJHHcamVutLXwk2Ac ZVAtkCC0pKGaHV4QHmCV h60qQIGbSOPVonIjBEKt vYrbgOB9ffJ2mW1fLtVS ZiBhcHBsaWNhYmxlLCBj t992cn6ggyP1KGZrUADy jqrvm3BpBQDmWKZbrO19 HAQjQHQgnf2szfdtzHJs fhZhD3Rsuae1dF2cXZBn YWluXGYxXGZzMjJcbGFu ZzEwMzNcaGljaFxmMVxk YqTyBTRfXHezN0dePaAg ZnMyMlxwYXJ9 [facility] Interpretation 2022-11-27 23:08:26 Test Item Value Reference Range Interpretation Comments Materials Received (test m5pydSKkKJNdgHZeSgEs code = 9973) MOYqINPsg5myWLHboOCw ZzEwMzNcZnRuYmpcdWMx KESkSuDvs0bls672dVMx j2lcGLVnBkT4vYIiVSXc rSPaR441OQFdLCpty2bh t4RoLCTnsMSqi0T6BMXD ngwsrFh5uWjsW36mq6O8 EjmiN0jkERHoKUSrL5Ry OF3mTEQrJzg9NCR1TDG1 TDLlNVTtL7TeGD8uCKEs eRXvOBq6k8linUlwLUYx ILP4r1ejGFgmvfBaVN3i fk0pkHy9w6rrpuLsZMZq FXGkbXSRBLWiM5BkzWvq Re2hqSw0wNwbEnjmSXH3 Soy6TR8rcz07xnw7hXag NDQkwherAkQ0SCmdKTPz mxpaCSy3FGdfQJDmmUnq MFxtYXJncjcyMFxtYXJn qAQ0ETLivHYpO0VsSQOy GYbqSOPodhu7AvXkBf2x eMDooEisPTlio3jqn2rd wHTbUdl3SKEpAjEpMsue ZYphw7Pjo7rfAMRiqr3w XGY3gVRriMwkl3Z0kISg GKEdpLAnskFwMRNnxe04 fRSvvRAfgGLyqf5wpoSt rWCngXEpEZO5pKAkwuKh TBZrvCTeVUUiNV0xiNIc OWWmeQ1zzknwSCQiAiAa zioaVMFwqLbzyuPnRe7k bLtvLQX9QUcuF2mhvM8v FlR8SNamU1ubbY5lNJq2 TJnexBR7PKXpbD3aFL4z ezkgr4zyKiTfSU5bemwo v7huRoDjTO8mrey0h0fr IQQ2ZKtoULTdBcN2ieR2 NDBcaGVhZGVyeTcyMFxm u847PQZ6GpJiZFVrq0Sn T8JgoCekN87ncNitY68q YAZrcGldcA8scXcgfF9m SwXiTpMwXYu5ek25YOc0 ukwevPhmRMt5pdOtCIMq LSD6TKVgwJBgPFTbF0d4 zcTgQZXeOUR5ZJFhtICq WRHgP9n1koDkZRW9LHl5 cnBhZGRmdDNcdHJwYWRk YjBcdHJwYWRkZmIzXHRy oTZycWMmlKSnwL7yjPio UCPdfYEzuI4gPUA6BQRd cmgzMjBcdHJoZHJcbHRy ll29SFZhwnRphLPxiFfj hHYnRPS9KGImCWHhDDXl KRP9OKZxJyBrqvPdTLwr bGJyZHJiXGJyZHJzXGJy TWY8CPZrBpZeksZxMKxk bGJyZHJsXGJyZHJzXGJy QFW7YHVbVkHqvlXmLIov bGJyZHJyXGJyZHJzXGJy PVE4FCFcWbIpmqPvNRxi bHBhZHQxMFxjbHBhZGZ0 R1jkyRWtVTGqNZfhqRJs CFFxW9yphAEiKGzwPFCo cGFkZmwzXGNscGFkYjBc N6zzQKGcJfFdI8OckWs7 MDAwXGNsdmVydGFsdFxj gBOiDEK1ZMApROEtQYWg FDA5BMCkWrSqxiIwSLpl bGJyZHJiXGJyZHJzXGJy EXS2ELIaVfIruoShRUmq bGJyZHJsXGJyZHJzXGJy PYG6HPHsKrLnqsQkPGcw bGJyZHJyXGJyZHJzXGJy IZI9TUDyAsHlexQlQIeu bHBhZHQxMFxjbHBhZGZ0 D8wrdBQqGKYoNEdgkUHy OEOeP9mwwJTvPYmqCHKi cGFkZmwzXGNscGFkYjBc N9gzGKGkEvMeD6KdnUi9 NjAwXGNsdmVydGFsdFxj hMVwBUM0XOPzUWOgLWUd SAK9EFOyDvDcidDoLZci bGJyZHJiXGJyZHJzXGJy NMF7UIWpCnGdpxIjJLvi bGJyZHJsXGJyZHJzXGJy WIT8VWJaNeJmkoLvLGjx bGJyZHJyXGJyZHJzXGJy AUA7XTPpIzOqrhVdTOph bHBhZHQxMFxjbHBhZGZ0 D8qdsCHrVWKpDZaxiBSt VLEwW3kkcXJmFTgwDYBt cGFkZmwzXGNscGFkYjBc D6gdMHVhMtInQ6RorNp5 McBkKRVwgaPikO23Mtti k1VrCFRuJAL9YXquWNes bFxwbGFpblxmMVxmczIw IMnkupswWYZoTRvxL4bd JfPzPEOgePcuWVlvf1Js XGYxXGNmMlxmczIwXGIg OSTqNDExgU2pEoxxK6Zi aR3pRHjoFjkcQ9soUHSw o9FpiR0rRNoekTCdyjpp MVxmczIwXGxhbmcxMDMz WRseU8kwYnKdIVGkaFcf SPidr4GnLMTcFENiRlfx mcJaPJb5gsMeUCHkuSqz bBSdLUikogFxhNkov4Nw tbRyxUcjCVYfKPi7qwNw puamyVq4tHZxyIvfJNXo tCdciV0mGzWgDmKiMEjr bGFpblxmMVxmczIwXGxh xcwhXURbLQqtE7buNbZy QYDgrVcnQGaos4JgCYKu BHKeSqpnihGkJRWaB29g bGVjdGVkXHBsYWluXGYx XGZzMjBcbGFuZzEwMzNc aGljaFxmMVxkYmNoXGYx GByfR2oeOqFgV8LoJTRe QuAyyHKcR5qiG0DdcFhu YXJkXGludGJsXHNzcGFy OIT6vQAvuiOieOHmoEDz CTHfERouBGN9qIFsryxq xVCbzzlrLQlcqpJ3VTJc YWluXGYxXGZzMjBcbGFu ZzEwMzNcaGljaFxmMVxk HgKgCQPmAPakY8sqUbIy C7EbYFUqNjApNuLDPBQt aXZlZFxwbGFpblxmMVxm czIwXGxhbmcxMDMzXGhp E0jkKgPlEPQcnJdeNTzf t5QpPSJxWGOiEipalyTp LBe3rnPoADWieEzueB63 Duqwvm33PAZnt2qnPBGp Y9JybFDuOTYfpOSoIPaw MDhcdHJwYWRkZmwzXHRy cGFkZHIxMDhcdHJwYWRk ZnIzXHRycGFkZHQwXHRy bNSvSOC1N8s4paNyXFFp PVw2gmCkRGHiFoOtaTWx JXW6EWv5EnophvN2tKFp H4z0QcajqtYbRLaymZRi rx80SPYeycAheMXoeCbw wAAlXQT8FNUkLTOlDRRg VMI0LOCpSrIvjpNxNPhz bGJyZHJiXGJyZHJzXGJy QMG3MAVlDwJjxuVpKSds bGJyZHJsXGJyZHJzXGJy CQG4QNAoHwRvwlSqMPyw bGJyZHJyXGJyZHJzXGJy XUN2TCBtZbQrlbUoDFbi bHBhZHQxMFxjbHBhZGZ0 S9gjgQQzISDoUUigjDQe KDKoP5xowBZgJWhlVMMv cGFkZmwzXGNscGFkYjBc J7fwFWIxYrSqD0UhyHh4 MDAwXGNsdmVydGFsdFxj gBQjYNN4HEGyDWBpEGMh IMX1GLPzCsPzxdPvCAez bGJyZHJiXGJyZHJzXGJy KNB3FMLiDgCiprCvFSnt bGJyZHJsXGJyZHJzXGJy IHW8BIQcOpPspkRjEOat bGJyZHJyXGJyZHJzXGJy CSZ8YRVwSvWovsIlPZtb bHBhZHQxMFxjbHBhZGZ0 W1dqdFRhTOBjCIomzHFt FNFbT2yjlETiEYhtXZKq cGFkZmwzXGNscGFkYjBc N7osOVPlXkCeA8MnrGn3 NjAwXGNsdmVydGFsdFxj xFXcKBP7SCUkOZPnTQSs UPF4CXDiZeWuwdPmKSmp bGJyZHJiXGJyZHJzXGJy KLR2UDAqPhBeprNhDNun bGJyZHJsXGJyZHJzXGJy EOX9GKYyAaVtbaWsBZjt bGJyZHJyXGJyZHJzXGJy CES7BEQbHkYuppPyDGhu bHBhZHQxMFxjbHBhZGZ0 S6aaxEBlEZUkUFhkoXOy UWWvC9fqhKOiBPvcUQCs cGFkZmwzXGNscGFkYjBc X8srWDSxUrNkF0GkdIw3 NdKtMUFbsmBmbI18Heyn t0HmYWTeFOB5MVhaXInf bFxwbGFpblxmMFxmczI0 XHBsYWluXGYxXGZzMjBc bGFuZzEwMzNcaGljaFxm RNixWuEoJVKyIIugW6zy KgSvL8CjFGAvIzJnHA4z WkS2WBTvQZfvAMV6WJFY KNZlUAGAU1QXFarhEMUF W2KxxPjrmB6bEhDxHyAi GDdvEH6kUBVtP2sxsEQg TIAiMUAdH4hfWiNguA0u aFxmMVxjZjJcZnMyMFxs dHJjaFxjZWxsXHBhcmRc bA21Mifpc5ImCOJrUTI9 MFxzMFxxbFxwbGFpblxm UNpbvzR0UOGaRVqjRCFf XGZzMjBcbGFuZzEwMzNc aGljaFxmMVxkYmNoXGYx DIyxV6yvAjAhS4UyAJHs MjAgMTIvMTYvMjAyMlxw bGFpblxmMVxmczIwXGxh yhnzGJQcNYjoB9rnFxMh MHGurBrbUOwcg9VnAFDx MTRxPkcvaqZzYNs9kzGk XGNlbGxccGFyZFxpbnRi eOjhl9LplzEmpVueUHSq XHFsXHBsYWluXGYwXGZz FgPshTqdmI7dOoZxVaLd OSpqSM6cUPUmD0ajeCKf IIUnHDCxM6alBkUffO1k aFxmMVxjZjJcZnMyMCAx XmB1VaFaObPozUznvP2o CuGkOsXiYHzwXK9jVACi X7imwBEyHXQaVKVuM2ce OzDjrU6ltMxiHYigGtRj ZnMyMFxsdHJjaFxjZWxs TUixcNDmZBSun5tmZVRv ZLGknVCjIIH2iHDxzvOb mVcjnCspuX5tDqYtVnTt NFxwbGFpblxmMVxmczIw FWwivkyeQJTvFTduN0mh YkQzEIWgtItoXFsqz1Wj XGYxXGZzMjBccGFyfQ== Addendum 1 (test code = t7cqxVSrEZNobCGpGWHu 37) FxfygoWaKZEncDFwC1Cg pusmJWqvIU7aYD7rcGsj xLImlEEqLSAgLwVsh4oe s500yZDtk9tbMJEUBLyj GMQHYRe6b3ftVQKWnzft jKf3iEtwG54qj6V6Izjo L45gsCFoRBY7RFOwPWPc uKVhNKVaGPY5ANOlcYHn F5zxQZQqNK3saajoRSvm BZtrBMTydLD8DOPkdOBd T1KqXUVdAKarLNSmkhr4 VtTrCp6rdHVcvYixAWbf YXJkXHBsYWluXGYxXGZz MjAgQXQgdGhlIHJlcXVl g9Onc1ZroTbgVFSzTOO0 gG3sSJPmaMLzF9tmetJ4 rNCvIg3twB87uA3fZHX0 sIBzBZHvr5VgKUDmQXNu d9LyNRIrKJ2jJJwtuVQw dPSzyTTaJBX5LD3JDYFh ZEWdm73gMrHrnHXrGQLz idHvxZLgUSMgQVX7dG5b ciBjZWxscyBhcmUgbmVn VYRuvrMgQl8qIMuggcXs BYDzNNEdmVWqxB03mk3y aXP9g2VcBC6jI9TjZHDg VFw3p2ryIrVguEJrHKZk jyTcxKUmJONcGTC0uK7h lbAsXHnmapAkdpMavL6c aXRpdmUgIGZvciBjbGVh jmCaGG3AWNNRXQHzDLS6 ZSHpLDCbdLWnvD09sf5g lUM7r8JdYN7tO4BjSXJb UTo2i8qtLvIenOWgGMGh rlBSFK8RDDTeK7zbzrGp MjJDMywgRGFrbyBQaGFy aMK9JBHLp74dkX1gREWK g3IilPz0CNDBF06nJLAz L6SSNIgucLAsoXZbcrG7 aGFuIDFccGFyXHBhclxp SWUnYFMog5L6RPepUq8a gQP3xX8sLKXaVQD3BZQj aXMgYXNzYXkgaXMgbWFu iDTbT8X9spBwGVS0PXPa aWxlbnQgRGFrbyBhbmQg hLQbijVsIV0zdm8spN2m BZkbQM52zH2SGP7BEZzf N7zowlFgYiGSWx8tTFAo gIRqqSFvRs5pcHIyUT9d NIFxbg6rfOudKWDhzIUk IHBhcmFmZmluLWVtYmVk MUYjPZYzl5N0KZF5g7fy JxOkwzMRH0riHY90RQAr u76rTKG0m8E5ZZguJFSi PM7xPBEtuDgpPVKvMdOd LWRjXDW3UBV0oX6rCFkp eOjfVVVbl6YmF4cawLEq EHY1YYRzGBZmUR93ThNt dYJgDPDsYZc3POivITFh sFThvlBzYKJsqfY8j0Hy SCHdZCMba96gBJ8no83o BLqzT68tz9MbToYie1Mu g8WgR2lriPXxhSebmrJu yWLbYN7fXZFcdwXurA6s uIPzk8IgxLmzBMCeD63g QsnjGBVapS7sqRSacxWi l3FwsoZoOGMWGgpvzYXg Y1HmP8XlEEMtEFVutaQ2 bIEergTbIxMsCE9cEFLD TTqfKYJ5XFevhN7aQJCv rIiaZGb9sSErkJMbnA16 PRAhrzShnEBvo0UmS8Mu nADdk1bwy1ivSgTcUZ2i bsSyf8BnDBO0SByvcY0j XA4sEWEqlGDijfIcccQz mXz8LCu0gAXmy4B5qJAx UENkZWRrQOVnl6FbOSbx lqWvbqD3oEOqwUUat7Kn TKHhCNQelY93dI8pCI9m sYUrLH8ubGGaf1TiO0c8 t4YdVPRrcCDgo4DdnX8r qbtfd1AhFA23IAfceVLc p0i1fKxqQUv1kXScAOXd gIE8sEZsdE50LMsfwzWf XxZwEW9nBVBxIJJfLMQt imMrc0h0ZVG6gP1kkmHl ZWxscywgbXVsdGlwbGll ZCBieSAxMDAuIFRoZSBt VImprIEzQISxt8ToVCdb FRQwBiquNMJcUSXxV4IY OHKfXV0ovZIsTEjaBSTe clxwYXJkXHBhcn0= Diagnosis (test code = m2zbuXFfOILdsHRcAENh 34) LrussvNkMUJiaWGdE7Jp qdbiKNvfHQ1fTS0qaErp qRNbaVKaOJQcXlSpr9up h999rCOjj8teWWNAsjrt lWr2wXyvB86fl4U7Opbq P0xlUBGwOPozGCLzUVhl iSCuVIm4QRLacPOkigUt WcBiACXmfHXvcWL6TRNc NW6tapaeENnxVHdkQIWb whH5UKHmzGQcJ0LeCPLk XF8fettkBOY0GIdxZOHs VAM7KkSkGXZhc4Uihax4 MjBccGFyZFxwbGFpblxm czIwXGNmMSBPdXRzaWRl SDbhYtkBSdK3GyBeOJvi N3FzTQFsIhzSB4nYKRWy LNLTKtqhW69aoRItmAUb YZ2jMLDiAxV3ErLgUfMl CszmBWQfD6HcBJWkzfge eLttGBwjhE50RsJbLiKi i1RiDRP2raizOKHpt4Nd nDnqdYQmFTgxMrJ7FWyr eK25QaXsyTcnRfO2XGAZ RIEQY4qRLZSZP5VXQbGU UGLOJO7UFHMuZBYGEHXY NJZXQb6tJIjERVQpASIw K65pePFtjJgyNIIutLJm XGxpMFxmaTBcbGluMCBN RFcvRkxaIFxwYXJ9 Comment (test code = a2pjbTEaCKPipFZbXQJk 9835) XbcqnnGmPKOubKQcQ0Sa eujuLBqsAQ9fGY2crQyp cNExjVApKQJqDjXtm4rp l433oRGtg4pxMTOMdjax fOt8kPjdB71bf5F6Gbwo D03dtIUwRGO8RHHnJRBf xHZjVLFyPHN4GUFrySMk S4xjYDGyDA0msxaxITrd CDvmSYOebSB6PSJvyWYi E7ZmHLJaQKluRFKrzfn4 TlVlLe9wlTXezFlwIRrg YXJkXHBsYWluXGZzMjAg J1VumXy7zABbCPqqlFRb j2iak2KxF1unpJyhUIvo p3CqjT2fFQVnylBdwj9d ZCBieSByZWZlcnJpbmcg lB2wvUu1jWPbr91ol8bi scX2qRN7JKWUUgPkhZrr bGlnaHRzIHRoZSBlcGl0 aGVsaWFsIGNlbGxzLCBh bmQgcDYzIGFuZCBwNDAg pSnqyGoyV9q9pdE6zONf bXlvZXBpdGhlbGlhbCBj SCkaro4jVPRgGZJda3Rh fN3vg4y4SEJzYJZunU52 to5inETby6L9yZAaxSVz l3YmfW1qjXx7LFYsMeE0 cOejQSYuWZGpwISrB1X4 hC5nNcWlmBOcnQ== Biomarker Block(s) (test p4cziLIbAANerNLxIPRr code = 9841) ZhktgdFvYPEllBXoC6Jc xeplAFouNR9dRZ8hjDhd eNIhiYRrTDPvQvNek3lk u387mLWbp5iaKKATbzbx eVm8aVqwF94yv0U6Tfxv S0eqUUOnZSqqCDKqBZuo xAJoLKe5FVCbeSZwtfMr ZcBxQCZvzOKkwBO8KFRv MM7zcntcPAhfNHfoZVYp uxD1YXQqiRZnX6LlCMEw US7aobtkHEU1UAilFBTo HNA5KiDbCKTqg2Musck8 MjBccGFyZFxwbGFpblxm pwYtLHQ3mU6gFDIwz3Xg OiAgXGNmMSAyMjpJUzE4 NzBccGFyfQ== Disclaimer (test code = o7bumEExTEMzjKDeEoDi 9844) OUWySJTtx2tcOSWhkYJo ZzEwMzNcZnRuYmpcdWMx ENMlUuPqj1pzv670iKFr n2taWWLcSkI0iVUrTOOn vFIlR368OULiGTwzm9xn p0WzMWUncNVtu8U8IOMX hmafzQl0yNywE50ta1Q0 SndcY4qcRIIjDLApZ1Dy SP7sUCZuXhv1ZJB7MAW8 KDYpGYQkY4GrKK2vNBAi tFFmJFv8k6mddXlqKBKe TVV6l5tqRKtoikRfSW6w jw4hxAd5a3buioLaHBNa CAAarLHCCJLdM1WxmTfc Zu6ooRv0uZorMxnpODG7 Zhk9NW3fim01zrt1hMrk DJSrahjgYzW7RBlqQLMd uatwNYl6SPhrULIfsDA0 LXTcpZHeT8MdJSRhYQ0v smy0PFY6GNkiLYAfZyJ0 NDBcaGVhZGVyeTcyMFxm u512XBX3KbWhYY4aD5Ni z5V5dP7oaIUxNISefRBi QoKgDWDkbi6jfOXtHAlq v1ViOGJ2imW1zNKhgQAf OBOoQG56Tuwbq7NnImaa NRC3ZRDmonCgp5Jsq1kq RdBywdJdA3vsD5LhDJVy PNKuNCBhKwIcniKzf1Ir r0SvxXHycJm3k2wnFRCs LANytOvfq4mzOUJ2CNGh Y3Y4qQVmk3gcAVqhLAYn fEQ0jtP2QHXlwLTrY2Tk rT7oXFQaDL5rjba1q4pm AQZ3GWmpCSDxDpN8hpD6 NDBcaGVhZGVyeTcyMFxm k081EGZ2MnYuTNAzn5Rr V6SdgKeuH04mfNwdK84s HKDumJbveG4vxSavoW0o ZjBcZnMyNFxxbFxwbGFp vjbaMBuntlY2YMrlfhdu IRXiMZliK4hxLqAaGEVg jAfjQVlqr9ZvWMIsSBRr XmpccaC3SLBCw08oUJMs w6VmWTMcpS5tjLJcFAch kvWflMM4VSythvMnDrCg jyWzWKVojA8tHPSjLQ2e LJOhrpXhjf1ezvJgCZNt TDFlI0YejbpxjJgpbfOn RRDudb5hcsKfULR9KGKG II6QOJWxDIRpi64xJSKm bLrzlN7rkALvstVxLQNk i0AxxW4toPMHLYGxR3gf QE7kNPwcw5WmzOEgxUHx pRP9CKEqc0EbAcLmvqIk hERnfGKvF5BtaDiaF1yp LCNsRPNshfTgcWOls8Py PUPqrIT5mRRmAW3HUvJN z40dFGTuFZXOfgYhDLWd zLlfaAZ8wwE8rS4pWxRA ZiBhcHBsaWNhYmxlLCBj i173ol6eltJ6GIYiKRWg bjxlb7VrVRKwRKLjqW13 LXAtTBNbyi5wdgpbjXTj qfIgH7Wdlcp9qQ2mYGKe YWluXGYxXGZzMjJcbGFu ZzEwMzNcaGljaFxmMVxk ZnSuDASfRSacB3npLdTy ZnMyMlxwYXJ9 [facility]ation 2022-11-27 23:08:26 Test Item Value Reference Range Interpretation Comments Materials Received (test f6sscBFsZJYngRDcUdVl code = 9973) XYWcTCFeo7ivUVOhcCVn ZzEwMzNcZnRuYmpcdWMx MKBgAkFnq7abs791gXYv t4zdBPMcHlQ5qIChZJLv wNCqG658WCCtXFvij2tn y2VgLSQvxCHwv0E3IORM huxvsIs8cHfsX30hv3A2 EpkjZ1gvWSSfDILtG6Lf TT1mZOLlDpu5HOV8NMM4 EYVdRJRbI7JvUA8uQVBp fQGlYJf4c1wqiKtsEVKn YQV0h6gbZFaxpqSjWX2p yb8efVp9v7nkpdUpDBXm EJTfkUDVIEBeA2ZvqQkl Xl6sdEf2dCziMogaOPN4 Jna6ZD5qlt71khj9oNxq VKDknhgmIdL9AGtgBBUs pkqeXJn7EGduOWWdtYhs MFxtYXJncjcyMFxtYXJn nIP3WEEosWWwQ9FlIJIa OIsjROHgcax9UzSzRn1w zAQyzTipGWdgp9dwp1yi eGWvLnf1XRIrXqArCccv OOmau1Cbg8vvESIrlh0o DEP4mPDuoCsfl9A6sFLc WBAqqQJldpJuFPLflb42 qIVfhVPwnNWrlp5gsjJg cHLumLSiIIB0lWCbbfVb VYHcnFDoYSLbMR3bhIOv GYDzsC8roziaVMThLqLb rtceIFPncJlyrrFaNe7l qJrnDAG2ZSbvZ0zclK6z GxR9UEnfP7lwtB7uIDp1 BLagjDI1MCRlxD6cTC7b xnera9trZpPnVW3ptunc y8hqVpOaCL9riqo8p2wb ZLX0ZLfrZANjRbW4oaH3 NDBcaGVhZGVyeTcyMFxm r199KTN5YdXjVRFok2Xz X5GelEtfP08jvYgeK44j EOBpoWjmoL7qvPbxoF3r TiKnLzJhGOu3fm07BQb6 wertaEhwIEv5naEmFMPf DGB3ICVwaQQwEACzG4s5 bmOwQOTpVHZ2IIKczIAa PXSuG5c3ypQaNOY8BTm0 cnBhZGRmdDNcdHJwYWRk YjBcdHJwYWRkZmIzXHRy hKBmiMYktQKrgT6nqCtc FPZpoNCbjE1wIXW3IQYc cmgzMjBcdHJoZHJcbHRy zb55ZCTbwmWgaECdxVud oHCzSFG9XXClVWNnRDGr BWJ2JYQjLhDpjgNxLEbe bGJyZHJiXGJyZHJzXGJy FMD7MNOeJoSvztAoKXvb bGJyZHJsXGJyZHJzXGJy MEI6GZAnMwHwbuCaNNvn bGJyZHJyXGJyZHJzXGJy QOB1CLNoRqSryxKxORww bHBhZHQxMFxjbHBhZGZ0 V0kmqQIiBTYpVCwjlLOi VYJsQ3nzqTPzBJycUVXf cGFkZmwzXGNscGFkYjBc J4omICIiWzAhP3XubNx5 MDAwXGNsdmVydGFsdFxj hJLvKLL3TJTjXBToSZWc LKF3ISHoPbDnosTfRMcp bGJyZHJiXGJyZHJzXGJy TDU3LBYwBuYwmnCoWTzn bGJyZHJsXGJyZHJzXGJy TVC6WZGwAlLuzyTfCFxu bGJyZHJyXGJyZHJzXGJy GIH8OKXrCpQqlfYgTJiw bHBhZHQxMFxjbHBhZGZ0 Z7eqaXFwWHGnNEnyoEGf OQRjM5ojdNTuNQisJJHe cGFkZmwzXGNscGFkYjBc J8stFJPjTvTbT8PaqNu7 NjAwXGNsdmVydGFsdFxj nCPcPWO9TAStYEUoYCQz XEW0UJBsDlMskfYsQDey bGJyZHJiXGJyZHJzXGJy OXE6XMJpWwOkbsReUEzx bGJyZHJsXGJyZHJzXGJy ZGZ1NSHlHkEpsbChDFiv bGJyZHJyXGJyZHJzXGJy XDJ4ITCuLxBuaoIaEUja bHBhZHQxMFxjbHBhZGZ0 T0uunIPbDLPdZYfsfACn SDCgZ4avlNPvYYzlEQMt cGFkZmwzXGNscGFkYjBc B6feNKHlMzApZ5IqxSa8 YlZmDNKnduSiqY36Atdm i3RhFJSdCOK9AJiiMIrl bFxwbGFpblxmMVxmczIw VCshfcwfJGWkSPzlH2zl ZyYrELJwvJloKBmew8Tq XGYxXGNmMlxmczIwXGIg JUOuOMUkxQ5nIsmzI4Wt zF8pCDynNtjdZ7pjGSBp c3UzlU1rUTssxSSueacy MVxmczIwXGxhbmcxMDMz FPzzZ1nsTqVxYTLetZzn REiuq6FiYMRnOWAfGxbd nbCfBGs8qlIsAEMzyHff lNNeRRhrhyOjrWgsz0Qu fuWlgBrmFODoYVm3hsZp zwrbsWy0qHJbfCvsJMOe bOnvmX7cYcYoZoTgIXtx bGFpblxmMVxmczIwXGxh jbimLPQeVTysH5ewHuIf FYYqeTgjDOzln6UbYEWh JYEiOvpawdKeFENcD40x bGVjdGVkXHBsYWluXGYx XGZzMjBcbGFuZzEwMzNc aGljaFxmMVxkYmNoXGYx UWsmM4zpOwAgL9GiPUMe JsMesCMlS8duI9HyvEfn YXJkXGludGJsXHNzcGFy VQL1uDExzsFblMPqcBKu QZGiERquQVD0cUOdkmsw eWUiqbevFFwwgmU1GTBl YWluXGYxXGZzMjBcbGFu ZzEwMzNcaGljaFxmMVxk PwAtQLQyCYlyV6siRzPz S6VpQFNmLlUcEpMVQZBq aXZlZFxwbGFpblxmMVxm czIwXGxhbmcxMDMzXGhp O3ybYwDaTUHdwTciIOgc h0XyTIVfPIXxWquhvmCl IOn4nzTeXAYkjLzwbO09 Qlmaao12DCToj0ycLRXe O6MhpVLoGQYeyXEuSZfx MDhcdHJwYWRkZmwzXHRy cGFkZHIxMDhcdHJwYWRk ZnIzXHRycGFkZHQwXHRy zKCxWUI3P0q8ekAnQXVr VBi9csHfNXFySbGotQMf GZF1HDj7TlaqytN2hVHw F3k5IdudarEeGEphtVUb ji97MDOeacFjkDQpsGkg rQPfDCN5RVEeJRNtQNKm IVI3VHCjHsKchwXeLBtd bGJyZHJiXGJyZHJzXGJy RQF6NDXnVgQrqeDhQRqd bGJyZHJsXGJyZHJzXGJy HOF1SMDvAwRlabZfGHym bGJyZHJyXGJyZHJzXGJy UAR1DGKtWcEmjjGdRUid bHBhZHQxMFxjbHBhZGZ0 E4tucJDhEOJmUOqknOXy MOIeD3afbAMjLAtiQFLm cGFkZmwzXGNscGFkYjBc K5iiZYMcWhXmJ7NteTr9 MDAwXGNsdmVydGFsdFxj cZWzAPI0YYUtGYMoXRRf RPM3JYUxNaFsgvSaJUwn bGJyZHJiXGJyZHJzXGJy IDY2CKIoErAqrxKyZVdo bGJyZHJsXGJyZHJzXGJy OZQ0DWWxNfStllWhRPmq bGJyZHJyXGJyZHJzXGJy OBB0ACAvUkTstfMxXQmw bHBhZHQxMFxjbHBhZGZ0 Q4pwfZZaIRWrKNpykJMo DLGzR9rhtUVoPNnvRISg cGFkZmwzXGNscGFkYjBc A7euCWEmVrOxE5TryPd6 NjAwXGNsdmVydGFsdFxj tDLxIOB6HKBpPXEzMMKk YTU9JGPyQmProhVnVJle bGJyZHJiXGJyZHJzXGJy FAY7MSLyPpYnwqXeNTpm bGJyZHJsXGJyZHJzXGJy UWD7ATZrHzNeyrQtMNtm bGJyZHJyXGJyZHJzXGJy OFR0KPSpAkVkfrSuQNhp bHBhZHQxMFxjbHBhZGZ0 D2krnXNsTLDxLKdwdTVs BILoY9olxMUwFGzeDKIi cGFkZmwzXGNscGFkYjBc L9wwOFCeQpSzF8NplSj1 LbVdSXNyszMrrJ84Vrdr r6FpHLKaXBZ7ROiaNMqm bFxwbGFpblxmMFxmczI0 XHBsYWluXGYxXGZzMjBc bGFuZzEwMzNcaGljaFxm WFifKiDlHJGjQDhuW2qy ObTjB8ScFKDvCpUwAQ5k XsK2VLZeTXqwUGC4GRCC NWNeYXUZS0NFBauuDBVA C1EliEjokM9lUaBiCtHv EVsdQM7zNLWiI5fdjXTt IGNnIHHaY3keAaFedE6z aFxmMVxjZjJcZnMyMFxs dHJjaFxjZWxsXHBhcmRc wI84Dsynx6IwMFTzYPX2 MFxzMFxxbFxwbGFpblxm SIbdemJ3SSKvANwcNNFn XGZzMjBcbGFuZzEwMzNc aGljaFxmMVxkYmNoXGYx BQtjJ0pfQxLzP4NwARXe MjAgMTIvMTYvMjAyMlxw bGFpblxmMVxmczIwXGxh ezakFHZvRMuoB3scFyQj PZSekFurXHzha2HkHGVx RJAxZtyatlClLMd2pdEq XGNlbGxccGFyZFxpbnRi tHlkq7KuvkFoeKynLOLx XHFsXHBsYWluXGYwXGZz HrQtnVnosX0cWxBuXyVj HBsvNW3xSOMnX8detFUm KNFkCPFaV5znMtFclU7k aFxmMVxjZjJcZnMyMCAx CwT5WdElWjZlgJjjeQ1k XaTnXwLbKYzmAZ9kBHWu W1hqsKGvGKUlHAXfY8lg BxDxjG2xcWskVAcsYtOs ZnMyMFxsdHJjaFxjZWxs RAfamOHiKCYxj1ihJMHu KSWxeYFqYPQ2tKSderXc jMdyeVermY7pHfHlAsLz NFxwbGFpblxmMVxmczIw WXiaywawKGVmJVsgH4gz KnEcATBtjFogPHnap4Rl XGYxXGZzMjBccGFyfQ== Addendum 1 (test code = k5vmpRQnFAUxtIDaFMDt 37) RwgpxjYqOKZnsLOzA8Aw yldlSGagZG5nVD9raGrl qEMjdZJyVEFmGbJip3dr k498eZXvc9ifJQVCKJop IVBJNIi4w8zdUWFVxcmd hCn7fVrhL66iv4M2Fztz Z82dqNOfHUO7QJEbWEEa fAEoFIMuSMR9EWBomJBg R9ohLWFmJI0jrxifXXrx FJvsGFWqmCY6USJvrZSd N5ElMGTrWNwlJUCifmu5 OjUiSu4cqTFhkPcbXAnu YXJkXHBsYWluXGYxXGZz MjAgQXQgdGhlIHJlcXVl h1Auy3EzrNlhFMUlSFW4 kF9eWASqyVZvS3ybdxS6 wNHcQt4phT36yM3jQUX7 fOBrWWDsj8PdVITrPOEf i3QoQIQdKA6kYBdisXNz aADyhXKtDQU5CB8SKYMv NLFxx49qFuHknLSyDQIf phEguWBlCENwLMH4qQ8d ciBjZWxscyBhcmUgbmVn FQEhoiSkVu2tAEcpuhAa QDNyUXFmnQCjrW74is9n cMG3q7UsSZ2tN6UmCPUs IPo4c0lzPcUqlBXgXWJk csJudRWxGTVeKIL3dH8f jdLsYNikdlDpbkLxdZ5h aXRpdmUgIGZvciBjbGVh ftKqTH1NSMKAWGQzKFV1 OPMxFWDgoLIsxG36lh7d hSP3f4RvBX1vL9XnCECn GKx8c2fdDrUjyXImGWEi kdCNYH8EOKUuU0pcsuMp MjJDMywgRGFrbyBQaGFy pYJ6JMKOo43nhH6uFEZX c8PbaNp8JFEHW29xXOHl A0ZSECxzzWFspQEvnzL0 aGFuIDFccGFyXHBhclxp VTCzNGTla6F5QYyoGl3e iQE0xP2nKHLeUYS1NFBn aXMgYXNzYXkgaXMgbWFu kHAxH3J4amMzVGO6ANSe aWxlbnQgRGFrbyBhbmQg gVVqnsNyVY8kyf8hdW0l NLttKT22zS7QEW6NBKif I1npclGpKnWWHm9gLTAd jZXsfZBaZb0izVNbWM5s FQVhax5vnZmzMEXzcRLw IHBhcmFmZmluLWVtYmVk LMIyISXsd0Y4CBF5z9pu FmNhptKJO2jiAD74KTHe z29eUXZ9y3R4SOnuABXq PD7aAEMgmRibIXByVhXc EPNkKTS2XKP4kR1qQSdr sGclHGNul3ZsT4gnuQXf BCU4NPFhRXZjDQ55EtDj qXEkYPJvBMf9JLowNHBu gRIxyyFhYHHgnrZ0v0Cc WKToMXLpg55oHD6tf39k QHgbP66ig9VnDcHhc3Of f1MiZ4zisXByuRezfsBz aGMxJV6hMLXzqnIcjL8y tGVvc0RzqWonZUSsV86j XagrMLVoiA9hbMAaffAp q8ObjqUnNVZWIixekTFm T5MsL0PjRTRpSLEujtU2 tPCwoiSfDeXrBF8oTRVD UJhbRBI8YJmupC8mUSEk gGheTKg5wNFqrXJkxD51 QHQuorSegGCci7TnW0Ux yEUre8qbj9bjYeVgNO0k kqIkp6QpIWR5EYwbmU4a ZJ3rNUHdiCTeyfVnfrKy mEs4YFk7oQUwy1A7nPNy AHHnVGAaJTVoo1PuPCuz aySxngO1aRXsnRRtz4Xc PNEsTPMasS74fS3fET8n fCCbXD2gjJFwt9ErJ5j8 v6SoTTGcoTVjp4MpsC5l ricvg9IwZC84IGyicNOd t0c3bBaaTJl7kRVcWAFr mVX8kRNkaN79JIstigMn YhArOV7vXZBvOMSwEVUz axHxu8y2FKQ1iP2rccZa ZWxscywgbXVsdGlwbGll ZCBieSAxMDAuIFRoZSBt RCnaeEYaLPLgp8LmAJyc FGQqYeiqLQKjDEPrJ6ZI VUOsNT3ryLWaGKycSQHr clxwYXJkXHBhcn0= Diagnosis (test code = o2pxfXBiBVTooNMeGXFe 34) SpvfjgAyIELgfDQhH4Zn sxrbJNxfVH7dBE4bwKvu lBFjoIZsABCbTcBkv3ux c307rACmn3jpQSGMdepk jKw2dXpzW94pu3Q9Byjk Y3rvKAYnLPwqAMExGIsb cIUqHWr1WFFtsDLqhvMv PqQsHYYboGAxeDH8GVDp MQ5vgyonQZfyXQevEDGo cnR6BKCsgPNzQ9OqGHHh RL5ifwzjOHW7VKlhMKPy DYW2YoBlYDAik7Nqfss2 MjBccGFyZFxwbGFpblxm czIwXGNmMSBPdXRzaWRl JNalBxwFYqS7AdAkJJxw T1ClQZRuPwrPD4xIFBHb VMJGRckqN24ofGVzyREu TM4rGFPyLhG9LoXoKsDd ShagGJNlL7DsEORubcqe zCbsHXadbS58PpFdVcVs s9UmZCT7bozkOOMrv3Fh sJhjzLYtDMjdYwA1POcx wV51QoFchHrqMtJ0YSIA ZVOGB5eZEUWDI1MJYnUU OSTOAH4HBCOpLTHZDRSX ZQBKTf6wFGbGNHSzNAFm K62yaKBuwThtSNFeiKYr XGxpMFxmaTBcbGluMCBN RFcvRkxaIFxwYXJ9 Comment (test code = w3zhcORhZJIwaXHmUSWl 9835) BxknfqMxXAQhqAVnG2Dz hyjzARlcZD0mRI0tnGxa wKLnsGApZSNzKeFoa4dr t649aLVcq7xlTTZZroqx gAj5uXfaF24dm7W4Qkcx H29zkVEzIDA8ALWwYIRi aDTcHAVmSCN6DVRooGRd Y9teJTXaPF8uscimCOkh OVueJYMftZY4YXVebSCc Z8QtCCJmKWjxRXYgosd8 RsQqXr8wnSIpqPbfYOpx YXJkXHBsYWluXGZzMjAg G1HroEz6wICxQNhcxXUk t3qhh9AnN2jhkAeyTKnh u1JskZ6fHXFeeoExeq3g ZCBieSByZWZlcnJpbmcg zA5lhAc9gPIne82ry2nc flW3qPL1RHUJVgZcdQul bGlnaHRzIHRoZSBlcGl0 aGVsaWFsIGNlbGxzLCBh bmQgcDYzIGFuZCBwNDAg aRmbbLekX6n7xyD1xBVe bXlvZXBpdGhlbGlhbCBj CFtmbj1eVKPoPHGzq8Tn oY9zg0r7DYDkOQWzcD18 xn5eoQOhb5P8vZVhdFHk s0DtqE5ryPi7KNQiDkL0 iJbqNHBaKJWreSDfJ0D5 xD5pDjEymROhkQ== Biomarker Block(s) (test m0tozXPgRHMegOSoRDLp code = 9841) AptwmjPwAJJwcBAtQ6Bb wqkaFAcnXQ6dMU1czYku rNFxaFPqHGKsDfVxf1gz w774sDEee5zqJJBGgfut pDu0qEvgX32ur7R9Tetp P0ecBSVnIJqjDAZsCPki zWGlRLl7EEXoeLQqgfWa NtYrCTJliLTkrKV1THGr WX7eyzeqLBxnISegUHLx jiU0CMSvcKUrZ3XaVFHp NS1iqoffRLM2ROduNREn UGO6OnOoTPAvj1Oezac8 MjBccGFyZFxwbGFpblxm rdUkHPI8vB7kWEMuw4Gp OiAgXGNmMSAyMjpJUzE4 NzBccGFyfQ== Disclaimer (test code = w8ndaCUqXZJooGQlBeJg 9844) LNUnOWKdl3lmRHHgvSTe ZzEwMzNcZnRuYmpcdWMx JQNoYsQrq3knw521nIOc a4stXSNsXpU6dZMqRPWp sOSpB358BZFmWPqsj0al s0LvINIjqVLvo3D8WBLH uiloxRj8bChmS24ow0Q1 ZfqsY3sjHCPwNJKoT1Hq XC1bURQuHiv2RVU3YTN4 JBKrRMQaC0DbVX1oBOHc qKDzVQi5r3uirOpwYMYz MTL5l8rxWBelsnDrMU4a dt9zrLq3r6edzuXvAJJq JVIqrYUDISGvB1CydJvi Vy0vbWt8bWdzCqkaIWB9 Njq3IV4auc05lmd9nLia LJStnwvhBwU1DQouGNLg xtkpEDr5RSowKUUsrII2 XHIvdNWqB6KhQFWaBD5m fli0JBB8WHjtJZCaEbA9 NDBcaGVhZGVyeTcyMFxm h620WTH0UxLkOS0rO2Qg z3R8wB1tkQGcXXAfiKVd UmMfNPPtqj7cyCIxHSmg h8GgDUX2tdL1kCHxfCFi RRDbBG61Wjtxm9GhZxlk HFU6YRBfavWid2Xxd2do MbGepfNgB3suB3ErRLTb FEFpGVXmIgLckfTcc3Md k4YdsFXkaIl2f0hyTDJe DZKlnVmab7lvNZS1GXLy M5B5cIBai1zsWZdbIZUi eSW8fxH4NLUegAPoQ8Ht pN7dMCGiXX6qmdu0t1fy BBL0MMacIZKdUaU0jyE6 NDBcaGVhZGVyeTcyMFxm u848LZR3GrNkUIIyu5Yg J4EjbRykQ24rwDreQ11h ZXTtcPqfqN3tlJmftN8e ZjBcZnMyNFxxbFxwbGFp geuoCBnosqC8NVrsbmzy AUOjYQuwA7ukFaBiSVRs mWleYJhba4EeFLZoLPPv QdwnayA1CVYSh21pRNPe w6FxXHLuvE2erXHfXDcj vxGcnJI4YUwlguFbXoKc rtAhBJXrjJ3jIVCqSO9t UYVsbfVneq2iugOfHAHd SLYzC5UseinitSdotoOp SWIxpo8ezkXsOKV1XASY BT5CATGpNFVhz74cAKTn kHybrZ8nxZJftfKpECWj f8JdgZ0erOZIQFEiX8uh IP0tWOctx0VlkHZxxHIp iIA8VNAyr8NrYtExtwWe nSQxjLYfK4GcwUnhZ1xn UUTwWHYrsoXoaGIzj6Dd IFEzfPR2hMAkED9KMkVM g82kOXWhIXIWcwAeNJKf qOpobQY4toA3tQ7yJaEA ZiBhcHBsaWNhYmxlLCBj t526ww1igiA5XQIbKEOu nanhw7GeXAPoEBSqeV56 ZIAuVZUhby1xwvcysKIe haQwH5Bpczt6iU7bHOMh YWluXGYxXGZzMjJcbGFu ZzEwMzNcaGljaFxmMVxk DyEnDLDaNWetH6mbNbAz ZnMyMlxwYXJ9 [facility] [id number] 16:06:41 Test Item Value Reference Range Interpretation Comments POCT Molecular FluA (test code = Negative Negative 07825-4) POCT Molecular FluB (test code = Negative Negative 26379-8) Lab Interpretation (test code = Normal 61951-7) [facility] MOLECULAR [id number] 16:06:41 Test Item Value Reference Range Interpretation Comments POCT Molecular FluA (test code = Negative Negative 23000-5) POCT Molecular FluB (test code = Negative Negative 53274-9) Lab Interpretation (test code = Normal 22527-9) [facility] [id number] 16:19:00Reason for Exam:->Morbid (severe) obesity due to excess calories [facility] : 1965 Sex: FFINAL REPORT [place], UGI, WITH KUB CLINICAL HISTORY: Morbid (severe) obesity due toexcess calories COMPARISON: None. TECHNIQUE: A ict project manager abdominal radiograph is acquired. The esophagus, stomach, and proximal small bowel are evaluated with single contrast technique after oral ingestionof thick and thin barium using real-time fluoroscopy and acquisition of multiple spot digital radiographs. Patient could not tolerate gas granules, could not perform double contrast technique. Fluoro Time: 1.4 minutesReference air kerma: 125 mGy FINDINGS: Machine Chocolate Molder radiograph findings: Normal bowel gas pattern. Esophageal [...] code Surgical Pathology = 104) Report Case: [id number] Authorizing Provider: Dewayne Cuevas MD Collected: 01/09/2022 11:31 AM Ordering Location: [facility] Endoscopy Received: 01/09/2022 03:51 PM Services Pathologist: Evelin Wharton MD Specimens: A) - Polyp, Colon - Right/Ascending, ascending colon polyp B) - Polyp, Colon - Sigmoid, sigmoid polyp C) - Biopsy, Gastric, random gastric bx DIAGNOSIS (test code = i3pyqAIaFBHmb8noJTLzeB 3220) FuZzEwMzNcZnRuYmpcdWMx IHtccnRmMVxlcGljOTYwMV edndEfJEPsiSTgF5Gwmokv JNoiTT3vWJ8hvJjpjUBkbY GdETLcVxUdr7sok510gTCv u7jfMAMEkqxgiYs3nHsuH5 3ud8A0OuhjM48asRIsAZT3 TBEgKNEmwJRsUYReEUP4OH SaiISrB8pyWSMzTE8rjqxg MTkuZEwpGMMkoEQ9HNPorL OsS8AoLJOfMLigOGYghgd6 MwEaPp8nsQNffVoyAYixXR NsDORqITnqEUQmUoZwMS2e G45VY50aPSDDG9sPP1WZY2 YQLQxWYjcfAR6TFCKMY1CA TBp1XKBzeny6YUFuTVAAME PVVGNCPVCHEG9HHYZcsVAa YORcheDZHaEUR8zPKsllP9 jHGZ7XLGrkCE1ZFOQDV2IJ FDe4NBYsdzs6NOBrFSIEAK FXIBMNSCQNVI5MJMYpLPDo kcflXWImDf6kE5FWDWFJAG nmG2rPDBTUV1QaS1KHC6mG CSWTLAECUZ5PV0efqKSqWY RhYiAtIFJFQUNUSVZFIEdB O3BXL3TDBHxKZQKboyq0JE OxZJMJUZoYQPcIYN4WZ56Y UOBBRXKJPX3PRWGFSRpGPN 9HSUMgQUxURVJBVElPTlxw PFYpsYXqZV1dMhBNABRUXj NsUf6VLQoMDBnIC5TOD8IA BkBHGMEFF19BL2LJOVEISr GZDpLKW6MVGJ5SIXVXRIiJ T5wtERJ0r5nzgPTjXKSqqP UxODAwMFxhbnNpXGRlZmxh hwsrBOZrVFI2rrCdLAMnCN prDZIbBEapXx8ddDAegRyj SzEdFYPvp1rohdJJmhghmW m3j9qrHIJwCfX4yLKeRSws D5jitpQeiEPmSOMwSMg8dU 13UEPbzT0kmLBsMIkibbIt FoX9MEusHLAkXkI9LIBqiK PbDWZwX9apGFBxGPcbWXNj EGqoaRLnSMN0oTojr8A8dM VzaGVldHtcZjBcZnMyMiBO w7WeOOt3mNvgP3TjZWSoYx S8mMKpGMRgBNmxECNmPMUb ibA1pV39VOayznP4dEAxj3 Bcz88eg683vD1eaYUvLBP1 KOZwSXJaiUApCCJdHVA4VM MjaWAvJ9oxYDPiKD0qkrjh LNntUCfeGKCmmOW1CCBxeT NvD5TjGDXvYUjdSINplrd4 AjVmDq3gxCZttNqfDFrep6 gjt8nseWIsTou0ZZErYrSh IdjbOYiqm7Fgs3ccURPeyj 1tHMC8mWJgtHpac5M3lTLl JHXhsEAoSIHnPA0bbAPaLL VbmN1cckriFIBbXxYoiplc TZSgnTiazcPsVd7sdIshCK T8FVmqY0dvpI9jFqH6QChz C0phfT7sRAb4XChdVNAwiT V6dwT7HBVxpUTsK0UanD0z XKBrJF0eypw3t3vuGVN3AL vdYUDbJmO2xqJ7MUFwdUJz YTFqnXlyICgfw882QEQ6Dk YhQLAtx0GdJ3LgsEicK31s iCqoL60pNTDcbNlljA2jwM danU7rRsSiQuYwWSqxrRns JJ5gWLLkF2wlmCZyQXAuGD IqJ5frXmYsnK0dvObaQBgg mzRuRUGoXvg5PWHkpVTiOY KvZny7GGBbEBSrU26ipnmm BUT4iW9yy3wdn1RbJPrgEV L6FLYgx91pWVyztjF7KEbw Xt22KUrbYOJ1GWijYFX5tE == CPT Code(s) (test code t5sanPIpYQAovRS7GbBgEI = 3357) Dno4mzn8PezZSzaJSgINzs pZVxjeNrmk34zKG8cM33DY 2iRXDmViR9SNBsbwO5Kfo5 BQIsWJAfbGLmJ791k0coi5 zsskDltSY7nFpyBVEgqvhj IyL5DAsfDMMreytpNJg1PD uhBNAvrYG1EJHtbXCdZ0Hy HALbUI6kuoa6VRB2JFmoNE MnKmD2RYZuwBQdTFOedPmw XAniq115ANA1SjJaSNUlbc HixHdnhX4wMcXzAHT4HUPk NVgzXHBhcn0= CLINICAL HISTORY (test t2aclQOtUPIotVM2YwUyQW code = 3356) Qbs0rdc5InrTRnsOWmXTvu oCAwmoXdek88fXV1jH93GH 4mJNLpLzM1CFOiybA7Ftt6 NSLcENXasYYrE644h3ibq6 hwdeDipKC4hRdcTVAaggvn NjW4YNenQAFdxwwkUVg1BF zqSMMraAI2UCKhbANjH8Nd XEDuIJ1uvxi8GUH5NObvBS YnDxI7GGYzqRVkPCMheWrz JDqeu736FZF9ZoInCTRcyo EqdUyelP3dUlRkIAUHWPN7 jz7wq96baAWzLVQdPBXuUn q2iDFpcEUfWOEwHCSvv5y1 aYMeMgBzc9fhnzozAEO6 SPECIMEN SOURCE (test a3orxOKzWKTudCP9EiZwTW code = 3377) Mxe9bxq0IejTLgdVOiTBdu jGIvbhCioi85xNW3gM51ZX 8zBZYeRsX5JGWtrnB3Wck6 IUSsRVNfpUGyI521y3htv5 sqafSmhGT4hRsxFRYfddrk NwX0FNebFDTtnbuiWPp2KF keEPPnzIJ5WDWtbAPjK6Bw RMArKB8wpij9PEV1JAyzVS XwQoB2LCSsnYXhHQUwhHrt CKxvb349RCQ0GsIzHILihe IcaUzqhR4sHgOmYLXGZtJn KU6lsVFaPKWqdD8oJAOqB9 j9S1KeB3WqBDrcM8jvbZ8b FMCtXNQSi6o8gCfbO67is1 7vh0mjjT5zMDbuzR2uEWSo VCQBpV2sz3cfSFnfv6JeuE MsIHJhbmRvbVxwYXJ9 GROSS DESCRIPTION (test b1kwwFHcNPSrfYVoSgNfXO code = 3366) OjTLPal9puOZHtyIByIbRa MzNcZnRuYmpcdWMxXGRlZm Kty7lyk591rEClp3uoDETX wnyhbUd3e9nsMDPlCmV2nQ EoEVdxE3xrzuRxhVYlMAEj UNj4dT19DKBcvN5cfYZfZM cgyeXsEyS3MLgyJQJzMaE2 XGUvxRRxQKSgW3aoHIBtNX itXGWbADmxmLZyBVN1bCwc z4W5vCTxzNEapHorBfTmOj RsWMGUd9NuZLd9lHxpW5Xy QATlVuK0gCJiRWFhZObwOP IwGCWmjpS2hH69FRckwzG5 wIDfb1Yki33ri170dU0lcT TvEZI4BRCrPBFdgTMcRXNi AGY8TPZiaJFqF8b7EoFcbQ FkK2P6HcArpMVaH2J4DyIz lZQdL2A3DmPceTHuXFUsoW PzMq1jzZTeiYVvnz0xwx98 ECS6a3BkaScrLTW6AYR3Bj OzEm1kcCTzJOWpDPSbjNTm RRYnTM9ycCFdYKWysA6geq xjXHBnYnJkcmhlYWRccGdi bxDvUu5zbIbkMLE7IZzcH5 tnvO2gEkL2ALmkS6oozI7s LMo0PTwqiZJ4CMQqtK1uCD 7nbicmu9dfKtDjVL5bvjtr a0dpOsWdDX9tvwu2m1hrYd BrMR7qzlncx7hvDzVhQVqz GYBxyiafZZZke5AfxnvcHV Tyh3QvU6DsfRlaI05oxSap N37iYJDvyDnfgG1enSwzdC 5cZjBcZnMyNFxwYXJkXHBs YWluXGYxXGZzMjBcbGFuZz EwMzNcaGljaFxmMVxkYmNo GDCeYXmkL9kkRuNkElLsQZ BBLiBSZWNlaXZlZCBpbiBm t8RjZPsgtpTvFXWwlTQwVR dpdGggdGhlIHBhdGllbnRc P4F6ugZaSK2xJKGaQRQhT4 YgHTFfS36bFMTvpW5oMMRk AG1oDFImo4SkhlPebktbO2 9cg49mmX7wcOQmVJFlVFMi i85hwRX0tcNrQpZoBVRjAV FyUK3vVUPaqrRug2P7DBVc e2V5XGWgMESmqAOwyaziOX 20TVipNT77EMewOO4nVFYb SeFSiXOia8MbX3bqDJ0rnA Thr5TmkCq5tHTyEKneNVHf zI4ouG2kFDIzMCdhocRxvV luZSBCLiBSZWNlaXZlZCBp lpZyh2QaWXqjpyQfWRAgqZ VkIHdpdGggdGhlIHBhdGll owDiO6R4goPwXU9xNLRfAX VnU6ObWJXfH28hIIFrnJ0x GWVhVZ2mBWOxrGpjf0utAB VusG0lNBHiqGobUlYjjmDe J40fm6yklYCwn8BbTvPcrE LzHDTjy9SzvXWjBQHodnkf r90bqUE1xRNggOEatcVpX6 adMbCfdyJuxBbhSMMev15i SD19YKsaHN5bIBgmRN3oPG YwKVCsJVVjCNZ3IICwRrX2 IDAuMiBjbSBhbmQgbWVhc3 YywM4cVMJnSnL0VGTvUnQ5 SQSmCfIkrJQrtvUdJ6xnZY oidHUuAXJuFFAuyQGmtS4c sqMvgpMqaSAkhJY5ZYJpwM 2jtL69okJfpsGSRL2swZyq SOzilY5nMMSnOXWuA4Tmhj MkWNkeCFWhvt8baIikBDgr VsGoHWJyd0b9zCH7yVVlrU H4qNWulModOoOcGS9xoUFm TX9qMEzaAUpojqLrn2YcEU 10eGOygbGjpnZbZzqdz9Wi dTWrPwooMQFsNOUrb48fxI K6wqKaWoA2IFXuZJZtzqDm MeB8IC9rvLhfphTjf0P6YM Xpi1E3XQCiDG8boQ2lNCae IHNpemUgZnJvbSAwLjMgeC WiEcBgnMGlMyShB89epU5t JO25QIbaAO3gGWgpMI3cHA NtIGFuZCBtZWFzdXJpbmcg HW5bTHpjJE53XSajGQ5oJY GtHQlfAQRiK4XsI1Y7QI5q VGhlIHNwZWNpbWVuIGlzIH W8Aa6ttUCsKNTmqdW3x4Oh YXxsWDUxXzmbgU7mPNfxkj NmX5zJMFHogt4= MICROSCOPIC DESCRIPTION l1mqyJWiPOFlqYN6DxKoJY (test code = 3371) Gyf6ydq0SngQQxzQTtXXgc nZQgktUgpo87qGT5dB51XQ 7mVXZsYqP8WIJlkxD2Lnt4 BLFqBLGlhGWeE440j5tut8 zxnxDguNO5sRmvCZPgywbm CqQ1PFwdAPMdyfptLAh0QJ biSGUzsLO6OOJmoXXuR2Ut SJCnYS5igyx1RTO7QYkqLB BbYmK3DSRwtLRiTRKliKya FGqyu413EZF2XpKjUYRuml XfmVowpH3oWwSlFGUZFHBp XA6zFWsrW6qoQ1JcADScPS fscPgnd2biJT7pCF7ljWex bgNpO6scmXSxkODlmyZnXj fgFY8eNCQlwvrpYWOrSi6x Ik1mr3rrfiqeyUQvxwIviH 1qlVKbsML3fE5jNJLvnyNx a4EldlPrZR0zjHRycUSawF CgABG5a2CzNQKsOMAfcyMr BNqfT01sctA6OLnuJWNwRV 9oZB0nZCdmjYybh8HhJ1Hz oxXzoDEtb90kL3OnkKSupv KrrxXff7KsmkOekhYpy5O3 sB1tLIH7TPrxiq0qXYhrUS J[address] [facility] Center[facility] [id number] 18:24:44 Test Item Value Reference Range Interpretation Comments Case Report (test code Surgical Pathology = 104) Report Case: [id number] Authorizing Provider: Dewayne Cuevas MD Collected: 01/09/2022 11:31 AM Ordering Location: [facility] Endoscopy Received: 01/09/2022 03:51 PM Services Pathologist: Evelin Wharton MD Specimens: A) - Polyp, Colon - Right/Ascending, ascending colon polyp B) - Polyp, Colon - Sigmoid, sigmoid polyp C) - Biopsy, Gastric, random gastric bx DIAGNOSIS (test code = d3ultRTsSHBzg4jdISQbqD 3220) FuZzEwMzNcZnRuYmpcdWMx IHtccnRmMVxlcGljOTYwMV gapkZaCSLijRGgV3Wuyehc TQbbGB8nCB5szOcemALwbR PoMTXuUgVjx3ash749kFEx b0hvMZERctumgXv2vEyoZ6 7ca7Q2IzgtJ87ngCPbIXR2 NMXbQCLvxZKlCYKyYRG5TE RqsIDkC0boMKWsCJ5vjbqb SIfaQNuaEDLajAE9ZFQryP YdO4ZgNEFpRWaoGILicyt6 GyRhXa6xmCKcaLvaPLuvUM YzIXNqSZszXZOnDhOeVG8t H89WM87yYESWU2eAB8YGL6 BTGOcLQbzeOY7RVILIN2OU UXd8PVGehej6FYHtDWSQVT NALGGYZEYUOV5SCRZloNAv LCRsxqOHHgZOG7xMXigxH3 aSTQ0RIOneFG8ALJOKT8CW PQl3ASZrvkq3CTGiVUNSHT QEJWAHDMTSEC0GOJDeRTHv zcwjOMEhKx5uL9JNIMGCTL ceA4cQETRFD1LwA9CZE5pK ADABLEOJYG0BT0fioAMvBG RhYiAtIFJFQUNUSVZFIEdB S1WSM7QBWRwUVUEuozv4BV YmUAVYGZfRFWvOIW7ZZ20E XCUANKIIPE2GFIMPRRgHQV 9HSUMgQUxURVJBVElPTlxw DSYmhCSvKC3uMrJASBLZWe RrYt7GDNeTBMnXY5BUQ6AR LmWIYQGFV24MK1VBDKSMWc XYMaPCP5LDWH6YJIKXADmD I0axWOO4t6ltzLBpVUAhxK UxODAwMFxhbnNpXGRlZmxh gthkCQNiBFH3dmMfQQGySR jgOQKqOFatDp4qzYTjqFkl GcCyIQNbk1tuimPHfqtlyT s5b1uxOHPnKpH3wQIgOIom P4vfdxJrmPUpROMxFWz7wW 91SAWfjA4upLArDOlkixOh GuX6BAzjPOGdVqF5NJMsjW BaXLLoQ2mnDZZqLSitJMTu MReutVQjWRM3nRxvl3X2tC VzaGVldHtcZjBcZnMyMiBO m6FzZSm9uAbyF9SiODMbLa I8rOCpQGXuMSfaTCJpULVl udK0gB25TCnfikV0cZZlr9 Etn07ow885xK3wnBSwIEC2 NYYuVKHmyZDmLBDwZOT1UT VngEEwV3gxKGZxSJ9kwnbc BEmcDSdjSPPymPH0EZMvaS GnZ1AvPJXlQPbpVBZiplg0 RjTvBm4fmHTcbHxbFBpkj6 vkq3hqfLZfOwd5ITMrFyIv NwgsYEjzy0Vge7upHZIznz 2fBXM0bSMlyZiks6K5yHYp PIUdgXYkSJQaUH7pmNViMA TrfG3bffbfBTKePqHtiucb EJVzbWkwlyIoBp0emTisPD W8KJhlQ5wtbB4xHbB9JBxz T6ywdS7aJDc5VYlfKJJtoG N0evU5HUPmhCSpA0EygI0v KKRnBP2prif7r8tcJJN8ZP bpMURiBeY0ahM1CDCmpRAo ZMPmkHdtMKrmr901RPC1Fl JbEHAyi6JoY2CwcJdkS41n tKmmZ12eGOMhjOhldG9hjN kiaT3wGbGqLsEpNPptsJxg JB8yGHPxK8oeiYTvEWJkSW KfB4pqQwCkkL8unWfbQRhq ezRtRJNzRwf8VDXzrSJxXQ EdTfv2HUHgTNTyG16dyuxu NXK5wC6fn8jqe2SpYNxmGT L3CQLhu94dXJnxblI3ICxy Mt33XVcqRHY3NZxtXFW1dA == CPT Code(s) (test code w4cqaUFtRZLroMW8KlKaFA = 3357) Cbd5fxa2PgjVHgfHCaNAty pFYrjuNaqm56fGI0xM51EP 9wGNGaOtS7RRAckkD4Tma9 UFOrNPQcwAExX787s0qlb5 dzxnYubAI2kDkfISYfxysz NkO2DEhrFKBjunanXWi8IU dfYEMauOP6DQHamMWpO1Go VKHaFQ3ugyp9TCA2XMnqRX EnFlB5AETxiZQgZKCfeSib MTrxm632ZUI3DtIoEGKaur YqvHeeaT5qItZcJNM0BKXo NVgzXHBhcn0= CLINICAL HISTORY (test d7fhiUFtDPJmeVC6FjHbRY code = 3356) Gws7ttk3NlwCPyfXKsSLrl bWLligLhxi21nWC1wN55BK 9tNFXhGpI0HSOemcB0Pqe6 BGDnWNLgsDGuD207w0eud1 awivMrsAF7yNglIRRdcphh TcD8XYknASEadzssQTw2QB fbZCVbyDJ5EXUcjMDuG0Vn KKGzII5yovc3QJR6NNtjEF GwPlC1BDRcwJTxCIMbbRbm SZziq584KOR7OwPxFYLclr IvjFnxeU2sCmTtAKENSQJ8 bz1ex64rkIHxIHRuJMGhMi z9cKXscXIlEVHhJAFkh5c2 gSMcWwMbg8werhaoUJE9 SPECIMEN SOURCE (test t0fhwCQdLIIonYQ7BkBxCL code = 3377) Gqp7ekh3XzbPGceRVaEZpe kHLvgmIuut04rBL1cS61GX 1eILOaAnR6FKCzkhD7Bhm1 NWFpLFCjaTDmZ430f9hre1 ryoaAbpKN1jGopCOFhdtzx OcO5GLiiXLUhayjsBZx7HQ rqUQDbuOF1KUKwoEGkY1Jc ASDiHM2jpow8MSH5IZfhTY PwPzA3ACLiqMOwEKWbnQiy FNddh581XTQ0FhTgGFAedu KqmKmzsI5dBbEuQMJNPxAz EB4vrPBrXNHjvB9yGOHtP3 r1J5NzT5YoVLglQ5tqbS6k UHUuDSRQf9x6qYgdJ88kn6 7zc3qayP8rWYcmxN7oSMGu LWTLuI9za0uhPWbxh2BqsZ MsIHJhbmRvbVxwYXJ9 GROSS DESCRIPTION (test l1vsgIRgBNCckKBfHdPsNN code = 3366) DuLVAbz5quHYWjmSSzPjSz MzNcZnRuYmpcdWMxXGRlZm Yys6thn974yBWsy2tcPUVV owyfnHu2r6jcCGChWqK1dE ReHWybE6afdfEspBNaIVWg TZs4pT55GABtzK1xxAYmQC wigpTwPhK3LMigVZGdBhQ1 GRFbpHAdRGCaI9dmWLPjFB jpIPIpGExbsCFlQXS2xRhs z4C0rEBhiDUroMyjRaAsUl CdDHDIe9ZoGUi2bEnmQ7Yc GDIzMvJ2bCNpLTSdDEibIV SwTULojmF9qB64MLitnbD9 uPBni8Wng50gq723gD1ddL IwOQL1JWWaHPMmzLZaGXYx RCR6KZKupYGdV3y8MxHymU HmU0F1LdFyzLDbQ1R4CbLh oFHiT6J4PtFycZMfKRKfoZ HwAf8dkPCwfLKooc1xkq23 ILA0o8VtqWupHPB9HDU4Sz CgDg0fiEPtRSCaTJYflWLr PRCwOY4wcMCtZFWuwG1kkq xjXHBnYnJkcmhlYWRccGdi gvMwSt2nsYdtFCR5JZsgA5 vkzX8tMwC4MXckZ2gbjI7q VXs8OLmbkJE9QQUlmJ7tBP 2dnqftr8udLvKdFB7fntft f5kyTgFdDH0wftb5w5tzLj EjNE3vvgxdj3ytQcCoPWns EOJqzqmqPOMrw2LjzkgmVC Gsq2HwV5TucTaoV05zaQos Z77qQNTrhCijzR5jhOcieN 5cZjBcZnMyNFxwYXJkXHBs YWluXGYxXGZzMjBcbGFuZz EwMzNcaGljaFxmMVxkYmNo CSSaBAtlF2rnZoWoXxSwIL BBLiBSZWNlaXZlZCBpbiBm z7RzXQwympRcOTCorFWvEG dpdGggdGhlIHBhdGllbnRc H4U4xeLqEE8nMVFyRIQvL4 AoGTHfK40uVCRmoS1cHWMz RG2aYASqa5CcjdKnogyjQ0 9cg92nlO4dhVBiEJKzPGGj r00eqUU0hfMsQbFkANRxDN PkEW0aUYEukbGvr9X0JYBt s6G5ORKkITZfaQDldursNG 20BSrxDI19AYgdGD7hJRYa SiGFwEYck1MmP4kaIG8oaD Zha9EjyRh2lFSxRMolNITx dT3gsS5zYVAdRZqgzzJhzV luZSBCLiBSZWNlaXZlZCBp zaPjm1FmLTltukOjKUWchJ VkIHdpdGggdGhlIHBhdGll rcVyW6Y2hhQsWM5nSQJdNM TrE1GjCTBhI53sUOXywP8s QDXkSP8pYYSrfZfjl4elHH DrzT7vJAErsRijZxOxxyTi U79ko2mxmSFhg6NeZvJljG GvXZJtx1ExqEAdKBOyboxa j67yzUF0wWPbiMGcazDqV0 lpUfXusuEeiOmpXVVfq95p ES34VHezYS6fJXlmSG9vQY ZiURZlDGJgHEQ7HPHjUjC1 IDAuMiBjbSBhbmQgbWVhc3 XqiP3uDAVnJgF5ZPAbUfG9 MFDbTiTarHJnteRnO7gzMP mewENxTWIrLGEdyAAobC0h woZcgvTilKEalQU5EZBtuQ 9poJ60cmRmcsIIEF1pzKyf IOckuJ6bLHUrWIXlP8Zzjo WvWMlgRGBjkq0cfUlpDPnd AhRuAPGag1f4bLJ4wTCqxJ H6lVRgrMwlNhVuTD5hxNVk RP0iSWmkANnguyFjp9EjFV 16rOFvkgBrqyPaNnmpn4Fe wAMuJruhEKTgBDBey13wmH M7ihGaZgV9CLZyGSOujySl XsF0CP0ssGkgzgXyi1Z6FI Zap8P0YMMeCF9dlO9aDZco IHNpemUgZnJvbSAwLjMgeC GwZcBneQMgYwXvN67ilC3c UX86SNjhQF7pNEouKA8fOO NtIGFuZCBtZWFzdXJpbmcg KG2kHPbkQR82JHrtFE6qWE FxENwrSIAtU5XnN7Y7HF5x VGhlIHNwZWNpbWVuIGlzIH C1Bx1vlGIkEVKheoC7b5Lt ZUpxSOMfEbuceT7rVKdzik VrI8rMIUStmd5= MICROSCOPIC DESCRIPTION p2nykKQzZOSobYR9NoHjPL (test code = 3371) How9nag6VkwRTjqWUuSKgm aMKgopTdvd89dDD4mT23RT 1yWCTvDzL4IIFfopQ4Pkq8 DHYwSJYchFFyD962r7aml9 eqdaPqzKX1wJwpOZXmbxwr ZlF2GZqnLALyjuecKEf7VR bxSHWuxXI3QLXssMWoQ0Ef SMQjVV6vlck7PHA6GNycZC KcJwK1ELImoXDjTJJgqVtv XEsbz783HXI1GtIvQDXsiv TkoJqvnO3cVhNpSBFXQYFe AE7qXIzkB0xlE9ZpFLVtOE cviFvfd8juSS0gZO3uvIop ujMmR5bgpJRppXUjbgSzTv jwTS0qSVBzxjnvMXZtKj9k Tj1lu3yhqaegwETticDhhZ 3yxISnmMX0vZ2aSQGilrVe p8RpycXeLI4yiWYxxTOraB AeCGQ9s7ScEJIzRXMdabCc VEhlW71rbgF4ZPicEFFiMC 1fRS1iDUbqsJbpe2TgX6Go txOtkCSnw20mV5ZldNOcfw XxbrMsv7FtxeFzsnShv6C7 dH8zUPC4AVemhe8eDHngYV [id number] 18:24:44 Test Item Value Reference Range Interpretation Comments Case Report (test code Surgical Pathology = 104) Report Case: [id number] Authorizing Provider: Dewayne Cuevas MD Collected: 01/09/2022 11:31 AM Ordering Location: [facility] Endoscopy Received: 01/09/2022 03:51 PM Services Pathologist: Evelin Wharton MD Specimens: A) - Polyp, Colon - Right/Ascending, ascending colon polyp B) - Polyp, Colon - Sigmoid, sigmoid polyp C) - Biopsy, Gastric, random gastric bx DIAGNOSIS (test code = [id number] 3220) FuZzEwMzNcZnRuYmpcdWMx IHtccnRmMVxlcGljOTYwMV dkhaSfLTXdzNIrN0Lhmqay BNshGK4tBD4lxRyzgAHpmK UgUEQpGhHxn2ipb909hPUq q6shWDHXipwbuEq6bWioR1 2gx6W3SgwnJ45xoJUkSYJ2 CTOjHKIfmVXzWYHaSYN0NV LnoIAkG9lzVMUgIM8vgolt LRgnXMepXLOdmIF4WMOcgX JkN4HcVIOeDTctUWSwums9 KzLuGg2mtMNvsTlyPRjtVV TkYBMwUPppGPGjHtFbYO1p A92SZ34nWHEKK2qQL3HEE8 PVORkWSnueXP1WRVZVZ5EH NGl1NVEatbv6QYKvGGESEN VZRENMBLBPJI6HKBTmnPDa ZGLnkeDNRpLFN0cTYmnrX4 dUMK1VBRfjFO6DUPRGA8GX MLm6TGYpjzf8TJTmEVXBKR CWRKNIVUWGIM8LXIGoYGYr rphwEIFaOq8lP9NGEZMTEH rfE0wUPPRDN9NpD3RSM4qA LJIPCYRVRC6NE1ispZIyJR RhYiAtIFJFQUNUSVZFIEdB Z1POX7HZHXgPCOSxitr0PE TsXFTNHEfENGvGBJ5HQ32N AIYOINZMPK4ULFAEDUeXEX 9HSUMgQUxURVJBVElPTlxw ZFIciACaCX9mOuHRABHLRh CuFp5EDGdGRQiIH6JXW0SG XoTTZWDTI52BP2QDHQBOSx VPFaSEE8MDUV5YTEQJXTxS A9aaAXM8j9yddWIvDKJbpV UxODAwMFxhbnNpXGRlZmxh xdewLHEmEPC8ovKsWHUoOK wkTRSuICweKw2syNUyvUpa TmPhOGPbr2npxdVVaqrjwW h5h2fjMIFjFeS9lBPkRRdu X6otuuFqqAYaPUMhIZy6mQ 17LAVbmP4ivGFiUIzrzgTq WxT1IJkcKVBhQlI4XBCzvU ChMNEkV4hhKQSdUQrjVJQi OEcpiMRnDES8cAiqk2D9uO VzaGVldHtcZjBcZnMyMiBO f3UyTGx7kWcuF8JuUPEkSk U1oQYxKSLjRVdxKVAkUIBq ruQ1fP23QWwsnaY5dIScn0 Owg87vl414xL6lmDSkLKH9 TQAmDYEtzXEgFQPfBJE7GV LulSGsY0lzLJHxOW0effrj HBbiDAidLRUrwHB2UZRauY HuG0LhLVVsWLotQPOskuf2 KcWdGi6puBFvsThhBAevo3 fcu8swpACxAgb6HZAnLhTl FeweIKpad3Ttg4jxJJXhii 2wAGA4nYWfaUeri7G4sMOo WWFdwLBmWGCbMS7rpCZoKO BttJ9wtovuBKDyGnLoorub LVFzeXmrttYdVu1ayBstAX T1ZNotS9ewrU0nMmX4OBat Y4hnbW9bXMr8OHmgBTGhmT N5mzT0GHGjmDOaY8YitC6n XKErBP8kvcg2a6izFCY3NG wiDXRrVdT6yvC6KUIisCMn BDJwoOmrXJauf415OQR1Ws WvQUGjp9SgE4OdqMjlN79m cJoqR47vNZOfjMoofJ8gwX vryB3qNrAuDfHwEDifxDyf LS6zUACbM2bxbJXzVLNnPR FfR5edQeAsvT5lpLqbRZgg ydYgXMGcMws2QDJccYZxXX XsZrz6EHZhXXQmW49agrpm SJY5eF5ec7hwy8GkGVxuFZ V6YSXqz50lOTyrxuA8NUzz Ua60MZmsXQX8NVjtQKV3sG == CPT Code(s) (test code p5ccnBCrNHZdwUI4RkRcCM = 3357) Koh6wbv2EtlLXmyATcSGkq iHDrohYqjd78kIV3wU01KO 1oEXAsVnH8NGEiwjU7Ekp9 NGPeRXPejPYrQ420p5qwu5 xddiLiaTF7cSrkTPQcqwnm SvI4UJlqXBOtkexxWRx1PO zrNWVxwNP0XVVriRZgT4Eo JKYpOR7ydgw3XDM2YSozXG DzDuE0DCUcrYOqMBRohHjn JTnzt543JIK5HyRfLBBjyx IhlOwgjE9pSvBnEWS8UOQs NVgzXHBhcn0= CLINICAL HISTORY (test g8pumBPwUWYabZX8IxVkMH code = 3356) Dpz2uds0SqfEQvfVEiSJmo mOIxwaAxvx81bSV3wL32ES 5tMKYtXhD3AYLcpsU7Jyu7 BGUfRFDrmAQyC843e3jzq3 jppdPoaCH8sPzsKCEyeaxl QzU2KDrnGXRgoxhxCQf3IW fwTZUpnXY4BBYjaSByG4Ri VIIySM6gihc1ELJ8WFtqFV YxHvM8LDBlzOXcYDQklLqh QWkhs902BMA3LvBcETThpn CyyKlhyE0nXsYrJNCEHTP6 pk7fw66szOEzXFTjSMCxBj b2iKHssWCmHJRdPJCtl1i1 tJMxIcKtl4fotocaAFF7 SPECIMEN SOURCE (test w7kuxPKqFYQxvIW7RkUvZI code = 3377) Rcq4wyc5IisCJsjZUoDJot cOEytmMiwy70aMQ8wJ98WA 5iYOZjRtV7BDThptA0Thk6 ZTYdZHYwqYMdZ371g6agd0 juioKfqNM1tZztPGFjwftz LwW8ZHdpKXXbrhagAIh1VC dbPNVacWM8BQWnsPCoI0Fb DJXtYY0ndzt6UNR8JFieLR TtRjC5DJXxfNTcVWAxkEoe TYxja105HLN2XaDzAQOmhf ObnOkscT0qGcMlNHGPMtFe ZY7opDZuVKFmrM4gBSBoP2 v6L1WxN8DoAJraL0xhaD9n EAClFVEBu6j5oOzqC92my0 9rx8efbE6uKOeduQ0rNYSy GSIAjP2dd7boVOmrf4QjzJ MsIHJhbmRvbVxwYXJ9 GROSS DESCRIPTION (test d8ngsIVhWCHofPDpLaReXG code = 3366) JbWERba9srQSVzuAFhKeFs MzNcZnRuYmpcdWMxXGRlZm Ifj9xjd479sYByv4kgLBPD etdsxTl6k8ywADUtHuC8iZ IqNMlvD4oaxhTduNMnFSOf OYx5mT49YWQqxR9nsPNkGA sqzhStUqI1JTuuIQVrKtQ3 QISunWYgHNEfQ6gzVWZqFC zaCWJvBNqppRIvCXQ9hHcq i8L6hPElyMTdrZfhWwVsUd VqGTOQk9FhENo0xJavV4Mb WIHtQqR2qNCsKGSnCDwmHZ ElJZCdblP2kM68LMbcazO2 rGCry8Fsz97oz540tZ8bpR YeNPJ3AJAtFMPsnXYjUYDi BVE6MNVvkSUaZ2r8BdBoaM EpT0E4RtPgsHMtN8P8UgDp gWOsB4T8PoSlmNZzULEhqA AqKe4gdOSrsDZfzg3udg13 CHL4s1HheUsiORK1MOQ5Ti ZjTp4aqVCgAYPxIKWeqZLl GQUsYI7gbTZoZSDqlY7ecd xjXHBnYnJkcmhlYWRccGdi anDsUi7uuJxfMHH8AAvtR4 txeI0qIiO7ZBdiO6jlcP4a ZRk9PXqxdBD5JACzuN5xPZ 9wuuhsj1ilCxGpEV8mhpbm d3ycHtRsGD1dihh8s9nlHs LyXE9ldledd0dlTxVhUGwa GVYnsprbNHGgq0AlxxsoOC Sfa3XzX4YidEblE79pzDpr S49uKVRtpCecqA5okHpumF 5cZjBcZnMyNFxwYXJkXHBs YWluXGYxXGZzMjBcbGFuZz EwMzNcaGljaFxmMVxkYmNo KGPdCJnnA0jpCbYtMoHxNK BBLiBSZWNlaXZlZCBpbiBm u4TxHUjmvoGeEXBnyGDmTP dpdGggdGhlIHBhdGllbnRc Y0F6ntSiRY6yGWAsEEIcR3 XxWZDoZ70oIVXmlO1vFRYi WY0mHPPcv0FsvcIbkossN2 5pd32mdG8hhPXhQTQwJQUz d02teWZ0jzHpWyEhBUPkNX AwLV1iLYEknqCir1M2HLHm f7Q7DGRmBRJzwKUfmdpaSD 80SAwgSN54NVssYG7mHTDe KlDYxPSal6RzT8jlYS1pcH Nrx2ZlaSv8iAJbQFskWODt dT4blS1bPEBkVAigdnJilP luZSBCLiBSZWNlaXZlZCBp gxIuv6VhSFrumcLaBYAaaY VkIHdpdGggdGhlIHBhdGll zbJiT8G7ohHtIM8iHIQfSZ IvY1IqRDKoZ84xEKNrrS9v BMGeRZ3mGKKbfGgaz3gwVL IouN0vRPDhxOrfSmLrrxMm C49gj7vmiLTzk4IkJtRamU DsYXOco5CqfYNzIBKynfen a22dsPI0nEJlcZWmmtOqP4 scDyBassMxcMwrCLHyw40h EN91JIrrPH1nWGbnEV5kNA DbAJRaCOPwBNR1PNAsSeR1 IDAuMiBjbSBhbmQgbWVhc3 VctX3sVSSdHxK5PQUzDaH9 BOFlNxUjjPNcyvBiE3svPX sgcCEvVMPdZJLdzJLonE6w haNevaJnsYOinVK8BBIzdC 4ezF93jhBgjjAIYV8aaQau GTbkyB2dPSWsYBCdU1Actm HcWNacRVDevd3vlXyhCScy IwOwHQAys5z9nTX1hIIzzN N0kNZvgKqdQgQuQS6gtSVd TB7lKXysTTrrugUhb1HwBB 63vBBeiwYwbrWcIvkpl2Xa vKUvBmyhVVLiWQKhc38tnB Z1rkMmYyI2GIAmGDXrkbJg AxK9VC0cfBkdvuEot9W6NT Qgk4Z7VBDoHV8ajE2sYRbt IHNpemUgZnJvbSAwLjMgeC XwAgKyyDIcIhJwG46hwL7e QN10CNalZG4fDSnhSG8wLJ NtIGFuZCBtZWFzdXJpbmcg HP7uHJldPQ93HTywIT2mRY GdLCypCYWrM8YgB6X6BN8b VGhlIHNwZWNpbWVuIGlzIH F2Ie2znSKcHKDdzpX0y8Rf HHqaTMKaLadjuA8fEHecxj JjE9sUXLIufl7= MICROSCOPIC DESCRIPTION j9uxcVWnEZGioEH7VxSdED (test code = 3371) Yxo0nmv6FitUHzjOQzWKpp mFYcqwTsdo28pGA6wM38XE 9xZNKyWiW8WXVdlaZ3Hjp2 HNMdJMVneCUhD640a7hav2 cubaEciEW9vOnyEDEajcch ZlF1LOpdRRDusverVWf4YW khZUChxSN1GWOmuWHlN1Ci QLBtQA1npwf5KYN7ZHqdDF CvWhD0YDQiyAXnKXCcyPma UKhsg179FAV5SdPqNPWkas QszDsvvJ1kAkVsTAVCBYIs IR7oNQtiS6dpD7QsHPEwPU chfCqeh6dzAJ5rMC2icPvd rzLvE3vqvRKjnGNjzhMuPa qyUZ4aBTQflahuACJfTe6g Vp6ig1fnrsguxPYmutZpzJ 3jmPIeoKI9gO8pSQHqypDc s5MdqpWePP6phSWndGOnwK NlONI4s8UdVOPbFRXrjvTv CYssT92uvzC4BCoqBHZdAW 8hZO3dOWrwyLnbk2VnU6Ky bzBgxEDlk86kL0FcsPQkkm FmzpDef2FpfoYaqfKau2Z5 eY5fYFA0SAkhdn6tBInuSB [address] [facility] [id number] 18:24:44 Test Item Value Reference Range Interpretation Comments Case Report (test code Surgical Pathology = 104) Report Case: [id number] Authorizing Provider: Dewayne Cuevas MD Collected: 01/09/2022 11:31 AM Ordering Location: [facility] Endoscopy Received: 01/09/2022 03:51 PM Services Pathologist: Evelin Wharton MD Specimens: A) - Polyp, Colon - Right/Ascending, ascending colon polyp B) - Polyp, Colon - Sigmoid, sigmoid polyp C) - Biopsy, Gastric, random gastric bx DIAGNOSIS (test code = [id number] 3220) FuZzEwMzNcZnRuYmpcdWMx IHtccnRmMVxlcGljOTYwMV vdvfKmDLJxdTMfQ5Dkxzwg WSjpQQ9vZO4qaWknzYPwwS RsZQCwTbQng4jhj122zKYq x0otUCGSvtfeuZo9qGaqK6 0xd8T2NglnM90nwQHuVFF0 AWJmKFDmyLFwOKYnCFG0KS FhtSNkR0dnUGTbFZ9bflmh SUdcIBmbXNSyqUD3ZXQitN JgF5JnOZNaPGzdRTVtpmf0 NmHcCa6wnAIjmDawDKxgIN XxOCHfLWjmGVVqPoNbLT7p H45XU93cWBBID8cDN9EJC9 QGWZnAGifoLN8EHLBBT9HR ATl2BCJapuj0JZBoXUEJYP EUZXXZPLOLNM9ACMTylFIs DXNtynPQWsUHS2eOFmpvU5 nNVO6WJVumCR4GKUFUC7DQ SWe9HPMoxay1ZRTaEDHNSV KJDOLUAAYUNN2ZJTStDQUe sbhfVATwFd6vW9ZUFJSJHN thD6nAAWQBL8NhY5JNV6eO LLRLGYYMWK3SO0jswFIlXX RhYiAtIFJFQUNUSVZFIEdB Q6BIA2VGZUuABXZgvjg7BA WkILIYPNkDOKwULD2JA96B THCIQWZGYI8XUTANEGtOYJ 9HSUMgQUxURVJBVElPTlxw DAMwtTAjMC9xNmJDXHYSNo TvHa3ISKbSBImWS8VCB2IE XbBCRLCTF40RF0SLNXIUHc ECVaRFQ3KZQO7KEWKVSGpZ A6mrBIN4y3frrEYhEQPyrF UxODAwMFxhbnNpXGRlZmxh airmOWMmJLM1nbXgZQGeDW wsDCWgVWknFt7slRXpcGiw RmHcATOwc4mhalTFeareeA e8y5ysVZAvBtV5jYDnIPws Q5ylxkJliPCwFZSvIVe3lL 80ICTcoC6llWKbLSuxhtGu IzG7ZMsgGMPxQpP8MWUubH PrHHTyU9pnLPEsVJvrGUEt CCldcFFfFCD8lYgxe4L8fH VzaGVldHtcZjBcZnMyMiBO j9JmWQc9yRplN2EmMJSqBm P0nPEjCEUhOZpzKNPyBFKo uyJ6pC55GHunbaP6fXDql3 Dcu61tk089sT8czLEpDVJ9 VAVmKPBcdPDwMXAzUFD2ZV VjuECjR2hzTLKhBQ7ludwj MUxlVEtrQHAacRL4FPYnbY DkM1QzKECiEZzcDWVdjfl9 FiJnKt4npSJfoAitQIuev0 ppo3wnrAEwHto5ACVcWqVg KfdnFLafd8Wmu0oqCZOrpm 5qAFA6tUOuyRtvk8S9gRUg LBIdhKGdJKGeQU0edVLlQD ZgeU9nwxmkROZrAmYcusbo HQRidTskruGcKu2lsPnuTO P4IXxoC1bdfQ2iEcT3WIvy F3ryuO3kIAn7ULunSYXmcP G4ldD4RKPtuHHdT9AhyB1d KQCkCG2vkwt7b4trCAX8BX cnVGMnLeT2otJ7BUYkzZUv WKFnbWxgGBrpw080SCB6Cr XlJCSsl5BuG2YmbLoaF83i qJphD76zWQErjTpueG4fkD hwjY0sVkKaVvKbFIoacSoq XC6rSGYpP6uksTWtDUCbYT TbK9ptOiAueA7jfByoZVlr hzMfOMYfOtb3FKXsaXKoYD WeExp8AHRxCXBaH16itqah HLD9uB9ph9efe3DyETsxNC T8PRKvl43sEFvndpI0QKzf Fr87LDylFBK3FSsxHIE7wA == CPT Code(s) (test code m8oryNUcWTSesDA8JwErWQ = 3357) Fys1ewh7NtsTTggHAcGRqi mDAuzzZujd17aTN0eC28AV 8oNRCwEdD0WYOwhmP6Wgj4 HFHgVGRfwWKxZ679f1wkg8 nijtHnnWS6gZeqMHJaglof SdN2YKinGEEzdxclFVi1MB mkEFMpvNI2WMFyiSVzC1Vd CXBrIM1tlqx9PMA1HCxcNL ThRhJ7SQVmqNNtFWIglVnc SSdwz661AAP7DdDxUZXpfr JseMrlvC8sTmHlEWF8FQMv NVgzXHBhcn0= CLINICAL HISTORY (test s8jkcKFeIQWpcEG5JgMrTL code = 3356) Shs9wgt8SuvSQfbGRqUCjd eBQfphUetr12hBS7cT42BQ 2wPJTcJhR7AEOrglC9Lug7 WYLeFVBmmJBqN704c7blo7 qmyxUvkIG0uNlwQATavmdt WcB9RObcUYUdydgaASg4KO zxNYXtkKH1NEHwnBXaX6Le FNBhZQ2kwzn9IRK9SMpnOW BsOlG8YXBdzSViFFRonOch ZXfku471IZE1QbClMWCqnt YkgIlcbC2yHuUkAQPCILZ0 kp2vx19csRVjPAJzCAQiVv y5hMVxwDIqVWAkPTUuh9y9 qXJtYjKtw3bbwarzEWH2 SPECIMEN SOURCE (test u2dgtUImEYLdqSM5SgTsOF code = 3377) Raz1poi4KukSUyrZZyWUql xZFktdLhou14qYQ8uE04IP 4yVSKcGeP9MSZorjR1Cnc2 DRDwSNBnxVKpX474n0vfe1 hispPheRR1vCrlQHPvgmmv BnE5YDwyVOBfdzkvNIn7NQ cqGYYheZN7QQNyfXKyD4In NGGrML0dyix2HVK1COfsHW HoSkC9TQCnnFMaGDXqsRif HJumj899EFT8LpMxUKHgiz JgtIgzeJ0tGlNoSNCEKoXu CR0ixQMfQBZoeD9oWAGwS7 v6H6JuF9PjTEgjX6niuB8n GTGqOJQXm2j5qDycG46wh5 6mi8rumQ3nSGzypD2wNFPy QPVBuU4wo4tbVZorl3ZeaA MsIHJhbmRvbVxwYXJ9 GROSS DESCRIPTION (test w7ucnBQdBPSszFTbEiSwFM code = 3366) TcEALog5bnCQAovCAoPpHt MzNcZnRuYmpcdWMxXGRlZm Aoo8fzt180kBPte1bnEGHA jflgjGm4b8dkXLSaYbI9vW LxHMuiA4hwsyFhhNMcBPCp ZIq2eD43WCHgzW6zfKBkEQ qfzkBzQzL8UFtdXYGgOcU6 GGHiiQZrPZStW1wvBFQyGH ybGDHxEXyluBUuUHP5lUfv v5J0lGYoxOBdhPtxPkSbTv KtWXUTc8ElLAe3kLslP3Jy GGRtFrQ0tTMbUPVxVHgdWG ZnAPRlgxJ9tH09DLyzdtH2 mQBav6Fgk18vr133mV6znR LcLXY7SOHnGJAitFDjSUZn FUY9RJAhuIFqG8z7SwJhmN DrQ2F5EyEfzGHrT6C9ErEb oQCyP0K0DfWnqBBzBKIamS NfGt6ooEWnoAQbiq3qes28 VMT1p9GqiCwcJVV3WDN5Tj RtZz9nnAWkBAOdKYQgdVNb SCNdBZ5uyMXoGZJncR6xlh xjXHBnYnJkcmhlYWRccGdi iiMqUp0wtNikHKZ0ABmdM5 tlkY6kOdB7TUbjQ0nubB6c YQk9POijwTB9IZDndR2sJN 6sbcsnu0njJrIkZF7glsps r4oaFbBhSK5ujul9q7buNk KxQG2npwxje7mhHpAuJNxq CSJcxvtsWUZnw6FxcffdGI Med6SmP5PtgIotA07ibLgt Z00tPVDibRpabF6ucRbwhD 5cZjBcZnMyNFxwYXJkXHBs YWluXGYxXGZzMjBcbGFuZz EwMzNcaGljaFxmMVxkYmNo ICEuFLwkN2wlCgAjXtRjQG BBLiBSZWNlaXZlZCBpbiBm n7LoXIuyytUoEBTsxBIoGL dpdGggdGhlIHBhdGllbnRc P0X1qbClGZ8vURSiKTCiS3 MnWRGsL84gALWzqH3oWYFx MI5pYSDgo4VumvNxzenqG9 2lv72ieK9zgROeJYSxBQIp f88uzTR0aiSjUqFbRMQaYB UnOW2gAELpvrHxg5F5QRRl p7B8LAZaKEBxlHFvtimsLI 58KJewXI90YYmyOJ8vGGZa FtODgYXlt5HlC4gcXU5dpM Ldd7AydPc8cBZqVIjqRLSj fN4ezZ7zBKOiQJugwmNoxP luZSBCLiBSZWNlaXZlZCBp fnUdy2AgJKnbufByVWFstQ VkIHdpdGggdGhlIHBhdGll wzWxH0A3jeDaEC4mVFUbRI JoB6WxQJRlM92hLCWhpY1m DAAeGB1rBNUrrFzau8ewIB BrqI3xBPEkiBhbDgFdvlYy P27zc6kotCLqh6GoCgUytT UoTYIcz6PqnLImIGPmfivr m37oePK1pCRwmERqbpMsG1 pxBwBfehDsrZnzKSGeo84o XB61WYqkHM0gNWmvHG7tFD PdNSFgTGKmDRR9EBLkHbM1 IDAuMiBjbSBhbmQgbWVhc3 AeqK3fSSAvXuR0ZIKhAkJ8 QSXoXyDhvJPsypDpH7nkIU lnfENdPBFfNKJcsJKdyM1p vcIezjCaaSOkwTW7LVWafU 6koN79fqOsdgIKDQ1zpJqi QBuifX7pXPYmBGVoE4Uhtb BuVHglUBIfse8moQupLDbl FyPoCSXea5s3tBC0jYUzmM I5qPNshSvjAfPtQY5qvBWo IW0kMDdwSFgybsPpg4ViOT 12iDMlorVhboQtDytwu2Ki iGVcJhahRIIqJZMhb67twY H8upTeRkZ2KXPrAZFgkfRe WhU1EU7cpFjpxtAxa3S9DD Nsp3J5SCYlSD1rfQ6dAVvk IHNpemUgZnJvbSAwLjMgeC EmDmWgnKEfZgYqB30stF0d WK08BTlzRA2jBWjkIY4bRW NtIGFuZCBtZWFzdXJpbmcg UG8iNTevXG20QQjbLQ6wQT RnMAwlZLTyE1VoP5D5BX5g VGhlIHNwZWNpbWVuIGlzIH I9Kh2jxXBtASOacaZ1v0La HPzbBKPiQkuavT3gUSacvq HsB6uYYNKizd8= MICROSCOPIC DESCRIPTION s4mkcWWdTEThsTL5OkDzAY (test code = 3371) Ktj4wxj2FrgXDhtHAaNZqa uMYyfaAamd80fEV7gJ34KO 3qHVQtAsD4LXJgciX0Poj3 VWFcMIVbmSXvS035j2xho8 trppIuhPA3zLmwEPUisueo JvR6QEyrRVLjzttpGNq7UH jhDWXtxXG0RIDliYIaZ3Cu TAFtUP6ayov6BGO0ZMbyEE ZdTcJ3XPIttBCqIDUnrQxl VEtgb467VSF9WyFmOHZcir HefZvbmA9yYwElBZYLNYRw FI6rCGtqZ3xnH9JqRKVbDY ltkWkju9xbBQ0eQU4teIqv yoSxP0qbyTStrFZvfvUpFi gvGN6aPEMymwgxDCMoLs4k Ct9ef7zzqotanROlhdRxyZ 1yiBHxlPT6mS0jDKBlduYu n3LjthGnNH9ulASmnMFiwI HuFCC9k4NiIMGzJFFfzxDu KWubR69oztY9STadYXRiYF 4yFM4vYCwodXscr1SmR9Vs unGmrSApz16tZ0RikAUybw LmukImx1ViprYlxeHrl4O2 rG5kGIY4AUjwvj7vZXcqLJ [facility] [id number] 18:24:44 Test Item Value Reference Range Interpretation Comments Case Report (test code Surgical Pathology = 104) Report Case: [id number] Authorizing Provider: Dewayne Cuevas MD Collected: 01/09/2022 11:31 AM Ordering Location: [facility] Endoscopy Received: 01/09/2022 03:51 PM Services Pathologist: Evelin Wharton MD Specimens: A) - Polyp, Colon - Right/Ascending, ascending colon polyp B) - Polyp, Colon - Sigmoid, sigmoid polyp C) - Biopsy, Gastric, random gastric bx DIAGNOSIS (test code = [id number] 3220) FuZzEwMzNcZnRuYmpcdWMx IHtccnRmMVxlcGljOTYwMV hlefRoJRBleWJpE1Nxhgis EXffDP9fEQ1ivHlscVCurX FeOFGeQhEyl6gzb979nSDc v5mrJCHLgmzjvIg0qSzlC3 1xh2W4CbypN18qdDDyZZK8 TNArGXWtrBDeBLOvGPU8EG ZhzULvZ8feBBXlQM5qincb JZmmHNrtHXKuwPU0YVZnsY SbE6GaRMAjKEgmIASugcp0 XgZaOe6kgNUzjFxwAOihLU ZqYHYoAFsbRVYpBuOtHH6p Q49XS87uMWZHP1cUC8XNZ2 BMSDjMApcaTW7RXBAHO2QE SZp5BHKorzx2XZZsRJVKMJ YAPHXLUYFSRB5WRNUjoWNe PMQieuHDVsCCZ6pNBzelE1 hJAV0CBBdwEF3OVBFOY8NR GSp3KDTrjpb0PGShZEWJRG GTJMBCLAPROZ3JZYJjRYFu gedhIXIeRg8gZ5BXFEBDKE wpH7tUHXAKV3BfS0SQS3yK VZOKBMUIRD8SX7taqHKvKK RhYiAtIFJFQUNUSVZFIEdB U5IJB4BMRFoPXXFzoas0UC BxYGORIOjWNNzUFZ1AU28G OZWIIGBRDV7WVIJFQPzVQR 9HSUMgQUxURVJBVElPTlxw WZQhjHUiMT3mKsIPHDIYPi DmRn9WBNvUBIjIA9RAJ0AA QsEWFYGFU51EZ5VVIVKQZm IACsRBS1KXZG0WGMNKCKcR S8rnGSE1d2slsGJbUPVtfO UxODAwMFxhbnNpXGRlZmxh pzirXCLhJXM9mmFsLIYvGL cmPYEsSSyzBp3lpSAhaEbe ZlSmTQZax9fnomIOcebawW j7t4xbFZIaAwQ6pRWiGYxy I8muhkNnfGDmJKYaIVc6zV 68BBAvqK1qfVGcTFtobfBz JzU3HCzqUIVqRoE4CSEjlO KqZHNwM7jnRZEoEUwdQSQd ZChbdQBdQVJ4ePgcx1D9gK VzaGVldHtcZjBcZnMyMiBO t9RfNTr0rByoW9HvKGYzWu T5rBGgPLNiYPymBSFgTLTq ydI0dK98TWmbklW2iEOrg3 Oyn90wk761tT1roXDaJXR2 JYUqBAXyvOEmMELqCGS3UZ CioKSvP5euGZAcQD1zbluw OSdlJYmlWUPwtPV7ACMxkU PsU2IwJOJeJMeaZVCzkiq4 PsQuOt1jcIHmfIalZGvwg6 inf6xivKIyExg4TYPqKzDa YjvxNWbmz4Yiz0rbVYBngq 9pCFZ3aWAisHegx0P5rWWn QZOhgNBfOYHmLH5cgBZdNF LzaO7plgxdJUXjSbKrkciw LZGnkKgmnnExYp4hlLrdKL B9YQzwW7zcdO9aCzM0XUgp V8cvzF3pHYs2HTdjSXDxwN J6gyL7QTUeuGTsN5CsqU3l IKBzOE0ekeh1v9zkVDP0ZF goNTEdUaT1woX4DWUrnIUj UOSidVcgCKrej921FAO1Ld PlVCQst8OeV6AgiKqnN19i jJmvZ45sJLUnhShgnQ3sdK uvlY7dRvEyCzTqHNrvhVcs LX2qCOYoB9kabBVoIIXdRO YnA5uaRqYguV5ykJogAPrv orOaKVPlRda5BKIcsFZoYK ScPqn4LEKcMVEeD14cjpwu AWS0mY7fz1skc6ZuMJixQZ U2PCQgf52qFPutslC1PQej Cq13MWeqPAT2CScbSTJ9kE == CPT Code(s) (test code x7vpgWMbNJBzpBF3JtZvXQ = 3357) Puf5jrf2DkiTGbwAHjTSwu iSHbuhFiyr87qMH4rD30YN 7zRYTaLkA9UMTkpcJ9Gox3 VPRzTXQivPFoN251f3juo1 ajeoRylCF1oIkhKEExtbdc OkI9VJkqQLLzpznbEQx2ZJ xzQBScpHD8KOVsmCVmJ7Mu WXStGF8fuxa3GEG2RUsmYF NaRlW9WXQxkKZdXPWpeZuu KKfhz598EPU5IeTfVBOseu ApdKkpmI8tRaMcKYE4PWFr NVgzXHBhcn0= CLINICAL HISTORY (test g5ljrCRoPLSemLR5SsXbOS code = 3356) Beq1qjs0QftQTlzIAlSYgo eFPjikHzuy12qRY3gQ79AE 1oWSDxRzS2WWYvayJ0Jrs0 CTGiNDGxiVNvK634z0azr0 jrlqPrlTM5nDpaOKHmtzrt EzG1CFlnKHBtjarlCFd6KI lrOKSzuAY2ALDijQRrM4Sc LQKnWI2iesv4DZK7OBcuUA JyNuT0ULKpjOWhZERjlXnl RVrjm189ZOA4CmQsFWAxmj InuEkyeZ0iCkCsNYIPVSY3 kp1uk40toNZhBIJlTEEgQq z8zZNbaZRsAHEjEWTcf0k3 qUBdXrKjl3kmcnveEXC2 SPECIMEN SOURCE (test i0qpnQOiWICusLS1KfAkJQ code = 3377) Qyb8abu0AqbKBtrNQoAHqt cWIiwxOzdx48bTV5kM31LK 3nCZUuFwV4VMDpkkT7Ego6 APXsGGHqaWZnK276a1iyt1 apqbLhuEF1eQswMLIojall OrM3EAckQZXeksmiQHo2EH byVGUdeTL4BQTscOJlD5Nq RLQoML9iwle7JPE5OEqwPG HfScC6XEExqPTlFGEjwXlx NOivi226SVV4YmTjAFWisk NcaWukcL8zWzTnTERCFdWb AS2drYQoLUVekD2pGHXyX2 d1U1VfI2KxCEhsL3yhkL0s LEOaCHLGv7j8fQtgB84yb8 3jh8tvoO0eRBhkpH4kIXDw IQKPbX4ne9jiLWlsk1TwfC MsIHJhbmRvbVxwYXJ9 GROSS DESCRIPTION (test h6hmhFCbEWQxaCVbHaGuLF code = 3366) UiDJHiu8wsUNDehPAlWhKo MzNcZnRuYmpcdWMxXGRlZm Wjw2zhk289uLIvf9kcPEOK jqvkhBc1t0aoWOCeIqO3zQ QbCJlrJ5prrbCsvQMgKTGe FWp6wE21MPVaeF6qjDFuUX twwkBxHuA1TAmlBJQmEiW3 HMVubYNuWLYjM4uvEPUmEH csZKRfJEbgwIBwFXN7uSav o5J8vXRncYUjoMxoBsXrUf OmJZYGw1PrWEt8uGbkJ6Lg OABdWxB4cLFdJLAzDKlzKY HoKFQfayI2dB33MOyuruI2 qMHbi0Iet97sv359tZ7xrG KkUER5CPHwTZMrmJQgTKKf TGY5TPWjzOCrP0d7DkBdeX JwT5F7RfJiyTDkR1K5MfQf fOMxJ1M0RgMqdCRuIFFhaK GtGo1szXQkfVUdmu4hvi34 IUS1f2ZdrVtjLLA7GJN0Le WsKs4jiZZmJMSgMAVltCZn QYTgHD4ulGEgLUAqjC0ole xjXHBnYnJkcmhlYWRccGdi jiZwEy7bvOasJIE7WZmyW5 winE2yBrT4SCdrC3obtX4z IKa0VBrxpXL3VYWhlE2vMH 0vuaybi1spMtPvBZ0gqaro c5xoWmFuXS8ruzb0j9rvEe XwIH8fzxvpm3kqAyZnCXhz QVLdlxuzNGDbj5NwifcgKX Gtk8WxQ5SqiRvzO26rwIks V84qFGLdaLuinR2zcFihnD 5cZjBcZnMyNFxwYXJkXHBs YWluXGYxXGZzMjBcbGFuZz EwMzNcaGljaFxmMVxkYmNo LVJfKPboL4jqSpCdRtUfCZ BBLiBSZWNlaXZlZCBpbiBm z5FhZAyfsmCvWHZudQJcXX dpdGggdGhlIHBhdGllbnRc F7I7ziGyZJ3gTFRjYDXmM0 CyHDTxR29vNXPuhU6dDZZt QI0zLIYuo4IjauDuhersL1 8oo92jbM4tqUMyGHRzGODl r57yzOJ2dmMgYyInCKQyPU YrUT9xDFMcuiAip7H6DNYr i2Y7DTJeHSPpvQNmyiyuPS 49EWsiGJ84RUygWD5lPKZk DzREvJOtz6QpH4vtUG1bvA Woo6MywDj4sSZsKAbqZPIq tU6swQ0tCIVzWItbtbZhdM luZSBCLiBSZWNlaXZlZCBp poWpy7ZwENpfviTyDHRioS VkIHdpdGggdGhlIHBhdGll sxMeW9C2puNiIY6uVWBwPJ BfL5MaMFEhS48iNPFkdX3r ZRGhZG8oVGIyoDdqg7xzUJ RdaZ2sCGHnkXwrKiOjacGn F15ox2tckVJdg2ZdShGgfB YlNVKpw2LhkGZjMBTcqgxe c87mdPY3rDBoaMSmejErA3 itQaDfbtDmeVitZKIdb98e ZC33EWwlMJ1jLDuhIN6wMU DyUTMnDTCaFLD4ZBShPgB5 IDAuMiBjbSBhbmQgbWVhc3 VenY4vKPWjUeB4TBTfKyO8 CCWsUfWjdFPvkfJsH9whOF rbmTQwHQLnCMEifBYilU8z njYuqoPqtYVzdMR9BHZmdA 9lwM26agXzueJIBV6kxDwd XZyvcJ2jTIXeINIqZ6Fukx HtATeaYAHlqn7hhVyxJXyf WnPnKYGed7q5rJJ5wPTdaR U0dGGsjBpdZiHxXR0ffRCb XY0zKQffOHoelvCdg0BfPN 74kVCktaDnzlNpZvtwn9Sf yXLcSfjeBZSxEAYbf41lwJ N1fpQkCxD7WIZbDYEzfwBw DlD6AP3laKzlviLgd5S2ZR Ahc6D3VSSgVJ2reF2tGUvo IHNpemUgZnJvbSAwLjMgeC SgOrBwtYXjQfYvX92siX6b MG28YZmyZM3uLXcoPZ8pJW NtIGFuZCBtZWFzdXJpbmcg QF1yUDvfYA41DRohUU4jXT AuQJnxFMSlH8VxX1A0RG6k VGhlIHNwZWNpbWVuIGlzIH X0Kb3fiEXcJCPyxxD6c3Bn ZVziCSRhPxlljF0oSDvugt TbK8lVBNIbot9= MICROSCOPIC DESCRIPTION d6yyzDSuTOKzmHA6BlSzOP (test code = 3371) Fes8lms4SqvJSibBKqJGfk zGHxksAfit23dJC1jK49KM 0mZSBbMbI0FHKfhaF9Gnk9 IVMtIONsgHUvV426j5vbh0 dkjhDvtIR8qAvkXCRcfqrq JtM7YTroNISqwbfnRSm0VS buPVJzwGU7KVPbtMHwR8Fk NIOvDX4ruck3RIB7NFemXN KrQuZ3ZMOtjGJbCIMcaHls KTcfv131GSQ3OrVtGNEvog JobTbzdR4vVeKvEHUZHJEd RS5uHNfkU6dlF8EaARIzRL jugXxra8onDB8nHQ3svEdy ryKkX1fseYMooOKnfyRmLh fcEP3lJWUzmbkhTEXoVs5y Yn6zv8hufzyfqUTfrpHtxE 7ysWWtyII6kL4oYQGpqlKk y7PlvmFnXW0onOApiCZiaQ OsXUI5d3CqZZTvTVXwbySh XTraZ70kshE7CTfpSFKsXY 1vPB1fJRcdkErpv3JnJ9Tk yiThwYSir62sQ7SkgEGfkt MdchWau1KviwYekjQqq9O1 hF0vGSE0QEmruc2fESotBD J9 [facility] [id number] 18:24:44 Test Item Value Reference Range Interpretation Comments Case Report (test code Surgical Pathology = 104) Report Case: [id number] Authorizing Provider: Dewyane Cuevas MD Collected: 01/09/2022 11:31 AM Ordering Location: [facility] Endoscopy Received: 01/09/2022 03:51 PM Services Pathologist: Evelin Wharton MD Specimens: A) - Polyp, Colon - Right/Ascending, ascending colon polyp B) - Polyp, Colon - Sigmoid, sigmoid polyp C) - Biopsy, Gastric, random gastric bx DIAGNOSIS (test code = [id number] 3220) FuZzEwMzNcZnRuYmpcdWMx IHtccnRmMVxlcGljOTYwMV nfosSvCRDzdOGfS3Wywcsl DCxwKJ2cWK6udKwxiXHmyN YcKHOnWaAas8ejq047pVLy c7zgWLDCgoyphAr4lQbmK9 2ui8N7ErmjG88roVXqZJC3 MVGhOPKegLGsKJObLEQ8ZJ XbaSIjB9asQAZuRC0wprjk YHfyZPyhMJJncHM7DZMfsF UaJ1AmFSVgUDyuXGBsnnv5 BkVmTx7vdTJubKbzGNxjID CqMYYlQWoyFLTyXvBiYB6a H24XR03lXIGIA1aWV6TSE9 RCJUiGExtsXJ6DJVYIJ0DX NMz6KHMdtoi5CDLaFGTKGD ZXIUOHZOMKJJ1LBHQwcIHh BHWrrsJZOzTEP8bDHthgN9 dRWS1DJRxcZA2YUJOSB7IH OYf7EYGlkzx3KJOsFHXKKZ VDUMMMEYJAHH0AXRBfJXHw uujtPTFqHt6qX8BODSIRAK xnH0nNKLBPB4PaZ7YVO0zC QLJMGPINUI7OS5ecdDBrZC RhYiAtIFJFQUNUSVZFIEdB T0KTZ5QNGQbSYSVcqyu4NT UrQFHTEUyLYGxBOX9XD89B FEDTPINCWZ3RNOABYUaQMA 9HSUMgQUxURVJBVElPTlxw UUYpwZJnJO1tYbCFYAURRp WlUe0UGGgJDFgYO9BVA3NY PsNFKYTKR43UL9KIOFQIRc TBJhPMG9NWCW5HSLYNCZsW W8zdAMI8l8benAZpJOCrtJ UxODAwMFxhbnNpXGRlZmxh joifAGSlXZL6rbOvLFVnBT yyWYBxOQgoNd8nhLXxvRty BuDiNOUse8jatgQZcmtovN g6w5jbYRQvHaN8sDDzYBaz T0tjcnWybAJvBLVdDNk8yV 95HFWrhW6nqMDzGRgxohKr VaN9QIymQDZaMtP0KSSasN YwCZWzH8iwFCHsGZbqXPTb IXoajYYlTTD5rWgfy0K8bE VzaGVldHtcZjBcZnMyMiBO f4TpNLo5vZgnB2GwZZNuCd C2hOVfUIAzEDjnEPDvBQOg oyB3qD81NGecroU2fXQlt2 Ses52jq057tI9gpDLwNNQ4 TTInDMMftOArQDCeGOQ0OE XtaKAcM8jaBQYrZE7qxfge OXikDYkjLGSmnVG5AUYkzK RaY2EjJIPmOLvuCZEdntq2 LnAwIl2ueRXdfDjgVWzrf9 czo6qrnQLhGas8RNRcWnHl HzlwLJauf6Jfe8quLADhca 3oIBB9uUEbcUyms3H5yUCn JTIqpGZvUZDiAA2mfVMgEX FmiB7iaaheRHMyAzUrbmca WSCgvVlvfpOvUs9uvXcoUI R1NTrpQ3erfF9rDrR4KGsb V3dzkR3qGOl2BSpqNZWotL C6htS6RXMfoBEcO2WzlV7v IHEaSB0slqb2c7smFYU3DV iyUHOnPwI3bjB5UXEmyKBi URMtnXwgNDprk841QLD4Bc XrOYNbq9GqJ7JkoVbpP32l hJdqY96pKHQviUxegV7cnV bboL7kOxPcOsStYJldtGuy KN9dUKFsM2kbgIQoHECvIN GrT0buSaWnyN5alSewCWbv wmGlGSGfIjx2ZMMlqITmWX DpXlh0JPYrTXQbC44cwupc LHY5bE6ky0byv5FvAJvhVL W9VJJfj55bCRtlgeV7FEgs Js30FQufGNM8BTsdCGZ0mF == CPT Code(s) (test code d5wliVHlYVEynIS6VvTiVU = 3357) Cve7ugm4LlcTJitYQgXCbg gYUebsQnvx18xAR6eH32YH 8bAMBeMkB5BLWxsoG0Vyw4 UJOeBJTkhXSrH654i9bly6 zhtqYdaXM7fKurSZCrnmuj JrQ2YIdxZIPjcluyMLo7CQ kqQPBwkFS6UFGslDHrK7Ey UGOmJK0jddp8KLW4NExmOP TsQyD4HWInyMAtOSRyzDjg QFeyh702ORC0TxSzQXDpkb FioVshzZ9oXfNbKNE1QYLc NVgzXHBhcn0= CLINICAL HISTORY (test z5rccIWzVZDglED6OlBfVE code = 3356) Ucb1rch5MjuVKcaVSpKHdi yLXzltDowd31aPH3hB33SH 5nIAWmHfH7SGKmzxN1Iry4 FFVyLAJblNPsJ385b6xwn2 rxzzTioLU5bHvfSGKidhfy GhB4UVpwZGFfsgslKXq3AE sqTAQmiRU6XSSbyCQtC7Mn MJYtUG8awul3MXH7NEsjTG SmVgE0JELtyUQkCJUtrRzn JLwhb602GHV0NiGhRFGowu AwpZirbM7bOcWnCJJMYPK7 vq1xt09yiFBdXIQdTWIqQx s1eXFyiEWjVHPjAHDxo7j0 mDElAlUyr2wnytnpQFY0 SPECIMEN SOURCE (test j2rajWFdZRGbeCO2MyAgYB code = 3377) Owr0gno6GgcFYuhFEzRCmh hGPwfkSnni99sLF1bP63ZN 8sKFAcDeH2XTHchmC9Tof6 PFMjZQTjuFYyN587a6uzu4 iamnLliEJ4wJiqNNUfmvig DfS0HOcsDIWvfkxnXLg4ZL xqMWTnpJH7FQXoaBHlA0Wh URLzNK9oyky5CES4ZTuiZA OqXkW8RPHjqLQfTXCndFwg KXcuw315TUI1DuKcFRUgtu BhsIylmX0eYuAfOPNFOsRc YH2veMWwBDMhkB4cTNXrM7 x7P4YpV2LhADqgC7bxeJ2f GZOmNCQSh3j6zNepX41yi5 8tx4qnhJ5yMDwekQ5qUWNn JGFHhY0df8fbSGzci8ZzpX MsIHJhbmRvbVxwYXJ9 GROSS DESCRIPTION (test n9gjcJScQQSfoJYtAfCdYB code = 3366) JwUTZui8kpANVsfKVpKcRi MzNcZnRuYmpcdWMxXGRlZm Tkb5igy858nNJhf7rkTDAD bqaetSw6r9jqMKDqEtF4mK UcYXmbM4aqwnIhnFNpQZSz QAo5sZ61WQZweP6zvIRcAM typqLtDhT4MCfxRBTnOnN0 YOTjtVXfNTSpX0nfPWNrDT hlSYYnQOlqnKJhLJG0pQvz r2U8oGVjkILkzPcjCfQiLm FnWAZBr1UaPMw7mVqsO1Fg CDNyUyC2lTPjPMHkLQzfVC YzQOSoubH2fK89RMfkbdK1 bLEdh6Mpx66sc393pU4nvX BhTAS1IQQgGQRexHUyLPUa EGA6ISTqxONzH6o9JqXpzK NaB0T9ZkZmmMBwE1W4OzHb aTExU5T7MxFlkPIqNUVomD UeYc8sjZEinMDxyt2gif28 BQM0r8WinPcfAIC8ANC6Fm JfMw2yxLCaSYPkRDGqoOBh HAInXG9nlDWkAZBxgI3xwc xjXHBnYnJkcmhlYWRccGdi jkHqNx1esGknCEG3GGacI7 bmeO7wAyS7LUxaX1wipQ0a EFw4TJpvkKA2XNCcmR9uFS 8oilfyx0tmVrWkVA4vylls n3nqOwQaZT9oyul0m6leWq PqPN9cshczw1hhPdTvNIzw TCUuugwlLGPsi1HpwlwjIZ Jnm7TdR7VtxFwmI37bvEhs U26sRSPnqLseuZ0uuNwleG 5cZjBcZnMyNFxwYXJkXHBs YWluXGYxXGZzMjBcbGFuZz EwMzNcaGljaFxmMVxkYmNo DKZbPMnrI0yxKaSnSsGjQA BBLiBSZWNlaXZlZCBpbiBm i0KjFTqvxcTxTTIcfKGmJS dpdGggdGhlIHBhdGllbnRc O1D0qgQhRO4lDCDkHIEpZ2 XeQHRgP44pKHFdwA6qWPZz YH9fROYmm3QexcUtufvnT7 7ah54heU5dcPWiKUEyGQHz o46fwZP0lgImAxTsBIYqTX AgSG3hKZSzylEwc9Y2VOXt v4S4XWCkJDNkjDJevvrxBD 91HWwcPV34DAgvEK3wEBAg TaDIpNXpw4FsI0urPA4imJ Eml0NccEo8pASmAHheCEAi zX5wnQ8mGVQkQZlxoiPdkQ luZSBCLiBSZWNlaXZlZCBp rlOiu5PqUFnvxoCgODKbzK VkIHdpdGggdGhlIHBhdGll qyEyB8C0atJcPU1cQLWlLU JqZ9XnBOYyA30pCPZrlP6r OXPmRP1mKJDsuVfpa1ksDU SzwE5fYWTvwXugRwYrppMj R99uq8dfiLOmy0KvJwJiqD RdYDJyy9TcuZEcDJVauzwl h06lmGC7kBBvlWOjreAuL3 btDdSmzmEcgKnoOGWgk28p TI72WLuiMZ8wWFgbQO4yXB IrWRYoBYHlZUV9KWKiNoA2 IDAuMiBjbSBhbmQgbWVhc3 MwoS3hUFOwEgK8GKDeSeA0 OROpTpRrpELrtpLoB9thRY faaAMgMLQwOFYcgKSzyM5p jbHmglJsnGMnoOR9JYNxhM 8vnW76icSrbiBNGL8rfYad UNbpoJ2nRGOuUHDiG5Zwwb LwLLvkINKale7oySqvDOjc UhAkGSVwk5u5oMU4wZKarJ A3mWSboPnzZiLmWI1qiUJd AJ4uZCoaESonxwMqe3TjUC 19sHFmpeYhxeNhVglzc8Kl kNMdIwwaSLGzLFEbo99obM Z2lfKtOyZ7XGWvORDidrPk BqB8JR8nkOpfvyJdn9A8JU Klp3A8VFPcLR5rmN5nUAxr IHNpemUgZnJvbSAwLjMgeC GoMgJaiVOpZkGiV00ycA0b RH05SQknCC9bKPhwDG6eWF NtIGFuZCBtZWFzdXJpbmcg FW3oGZekED77XAcjSH1kPI XqRYcaRNQoP0JuS3K5UQ0b VGhlIHNwZWNpbWVuIGlzIH J7Oh7wcZFwLOYxldQ3y6If ACvjIQYlMcarrX6oWZyicf UiG4vIBQJtpz5= MICROSCOPIC DESCRIPTION r5pdqXVuJKKxnHE6MkFzYP (test code = 3371) Flh5cpg6OxzKDuoJElIOjd nPHokqQefi51iFH7pD00TO 6qRGHkAkO9HVGutqG5Tqn4 EKUpPKMatWIdP044u6sdl0 uafjOkuDA5cHeiIRTmbkkb IkE0HBdtPWEnrgbeXCk9SS ocIKNbkFS4GIRbtLUcO1St DWEwRI8nyvt6IPR2CFlxDM HoNnW5SFGseYOlNTAmaYes QZiov318IIV3CvYnUCFafl HgcPwrmU9rDkWvBGKMLGOp LP8nFBdyS8dsL9EzDIJqXW lcmEvim8fxED3yNI2esRsn raPzT7xpnDCcmOGqdtXvJq reZD7gWQGgsmcvXHJyTq5r Nq9lm2yutmffcMYyopUdfT 8pnOCgaZY6sQ6aWXIkgdPh n4PhsxUgCF0zeXHjuSArmW ElPOK6p2MlWJOwWNCwsiIy OPknL45puyF1QWyjQCQtBZ 5lKW0zGBxwvZtsf1PgO6Hx nxClqTXzj93nA9SboMDnki UfvxZdc1CkrwLfkfPwe3W5 xG9kUGT6INgydz4yNOitEF J9 [id number] 18:24:44 Test Item Value Reference Range Interpretation Comments Case Report (test code Surgical Pathology = 104) Report Case: [id number] Authorizing Provider: Dewayne Cuevas MD Collected: 01/09/2022 11:31 AM Ordering Location: [facility] Endoscopy Received: 01/09/2022 03:51 PM Services Pathologist: Evelin Wharton MD Specimens: A) - Polyp, Colon - Right/Ascending, ascending colon polyp B) - Polyp, Colon - Sigmoid, sigmoid polyp C) - Biopsy, Gastric, random gastric bx DIAGNOSIS (test code = s5qnuFSgQTRlx9ihECVerS 3220) FuZzEwMzNcZnRuYmpcdWMx IHtccnRmMVxlcGljOTYwMV schcXcTZZlwIHoK6Cxvvvi THqhJO4uXJ4udHzbiMGulJ RnSSSxCtSty0mjm565gNGk x1jyCDSSfwjulPr2mVxaE6 3qi6X1KzfbC12zcGUmVMS5 BGCtKQZnuYLrWKNeDVB3MY YaoBOpA3xiFMKqDS6ntdtd LYysUEruSCFjfTC6AHMvyC XsT3KaOIJnSOroFGCtiqu7 IkObFv2dhZHhaSarJUmgNK IiSFWfULbiTXIjYsNdJJ6m T76WI50zISXEC9jEA5SPN7 ZMCGvLUuxyJZ0XYXWOJ2SU RZf3CGFmzhb8IIZdXMBUDI FPZVMUKHYQRW4GFQBtbDNj MRMxtcGWKiVNK5rOFawmY8 hTHP1LLHogSL0RWWMAS7YB KAp5XCSofbd6AAGoCYMSMG EJMQLKFIEQWT5QSUSuMHFj szhiRRIkPz1qT5KSWIMVSG rwF5fYXHCPJ2JcH7TTA6eM IFUMHLDRGB8BL4gfuURzLT RhYiAtIFJFQUNUSVZFIEdB I7GNM4BFXZhCZUBkknn6QU HbEWAIJSmGDAiKRC8SB98N QYESTYULKI6DFBWEUKvCNS 9HSUMgQUxURVJBVElPTlxw ROUyuWGrUC7rAbKVBTNLUc RcDr4JKUsWDUjWZ0RHI2IZ KtNGTMUOT56BM0LYJNHHEw KUQrIJW8ITRZ0RDUGDSCzL Q4maMFO5t6bleVYtWBJltH UxODAwMFxhbnNpXGRlZmxh dardIRCmUCD3tbNdVJUsYU cdQHVnZChsSz6spNTuwGbk WyVyONDoh6ifddRLtqfxjX r7v3biPWUhBtN9qIIvNWmc V6mkjpBeuZMpZPNnSZc5zB 66CIDleI1rlVCcNSbxxfZz EdG1UPpjXUYzFoJ7MWZpyL DvVDYtR4qmQKBsRIqjNTAu GHzguIIlOTK3uXujg1L6xK VzaGVldHtcZjBcZnMyMiBO l6JmYSv5eJurC1IsHVMvXu X4yYGvSKPpFFmgLSPwUOFe xjY1gL27JFibmiU5gVUgq9 Gjf97iv284nG5ryKDhSCY0 ZLVfQGEbfXKlMBTqQWR9BC CchEArG6bmGORqWY9nsxib DMnmFIwoYNRhlIA4TMGiiW KtR6RpDECpUWrzTTIwrja2 NxBxQt4zgPAbfRvwSGocg0 oaq0cfxOSuHgc8FZGxYgWe EwnuPEkfg8Rvc7xtULFkbd 8eXJJ4qRFnlNgjz2P2pVZx CBKhiWNoHRKvSI6lqKPqSG WawA1csfptJAKlIsHhxniy FURyjMmtpmJiRr3bqLtiUP B4ICmgD0qahW0pQzA9HNfe O2hpiT2lKOj5MPdgMIGuzO C4rqX0SBBpiTMlD9YinD1r OAMgIU8djda4c7yaJPL6ES ghVVHnZiX1jzC3VUXxrFZl BMFnkPbyNZotj454AUX8Hz GpRSBkx0EyM0UqwVljK78t cSisW19jJUIyiNxbpE6csV vvdT1lObJvUgDwQLteaHek NU2zGAGpS4ayhVFdWDGeZE LtI7zoBbWhrA0odHrySJxr okCdGVJrHky0LQGovSAzBG IoKsy2TMWlWPPcQ61klpvf CSM0xR0jh7vaw7HyOLsqVQ L0CUDlb11nDNgmpzR8RDqd Mi05ASrxHHW5QTueZIQ7iK == CPT Code(s) (test code s9fhhGIxJNPkdUU2XzDePJ = 3357) Sdd5zdj8BvqYGbxUPsUGhz vHNisuZbjo54wUW7zV97WL 5lHKJbKiT1BEHwddE0Jme7 FEJiZGRcbUQmP207h3wnz5 zhvdQgaAE5sImcIJUlimex JuK0LPheFHSvvyknKBh3YY opNVXmgWL0HLBluNUgR3Fx CCJnEU4lkbx8RXU4FFykOP PqTiE1NBVzdSCxMCUcfFli QEbch763KYJ8TjMuOLXwxx UezEiitJ3jLuDaXWU8NDTy NVgzXHBhcn0= CLINICAL HISTORY (test z3chfMLxTJJodYX1ApDuHC code = 3356) Sbq4qpv1TgjNAqxOMyYWyz tSIwazQaja67oHD2aX62RV 4uDTPtSfP1ZHGblpC2Fmd1 EXTpAGTpcTVhR151z6ayg4 yseyUwfAH0aAnrHUOhjbvy HfJ5PSfkNOZjidihPJv4WB mbEWGdgKC5PEQghPFeD7It UYVtRI9bljj3MSI9ASodAV MyHfV9HLErjFGeIEKqvElt TDxjx152ENS3DmQhXSThbi TasEvbhF9kDgErIYNOVAU7 bm4vo22liPGcUXMdOGTuHb f7mQPclOFdWQClLYCij7g5 mAYdRhRpz0iknvorGKE0 SPECIMEN SOURCE (test w4pnjEKzUBJziRA0UsReWW code = 3377) Car1rgu0XfoJEycUYoSVck lLOnaoAhmg92sNX0sP78ZA 6dWWCwBcI4LELvqdX5Wnr0 CGGcWAEqnJYrW113k1fvd3 jeinEatBO8lXidGNShxsqq PlQ9LOefEDVsdaflHOz8JC nfVWGsbZG2SRFdaRPdY8Af EHGnQM3gxbz8CBO3LAjvCB AyMlO6OABjwNTcNPZsvRji IJcae241DUK4JaQjMZWjyf OjsFdwqB4nHyTtJVDGVdYp TJ9hmDVnXKMtaO0oGCRmU1 q5P9PlC9TdBFvcN0spgW2t GPGfLDPOh2j1zRyyD57bp7 8ty5dyqS6tOGiunB5fFYTm NSSXfH2gj8rlNQanr4OvgZ MsIHJhbmRvbVxwYXJ9 GROSS DESCRIPTION (test d7ckjNKmXCVrwRHpRqZnPN code = 3366) EwBKMhv6aaDZHozJQiAzNw MzNcZnRuYmpcdWMxXGRlZm Lcn6jin973dPQuv4blJBHP yhchuEd0h5waHUCnPfY6hB ZiNCmdM9jkhnTyrVHbLWYn HGs9kE31FXHmeG7srNGlOV iclgZvLlY8ZXfgAOWeOkC0 TVQyzGYjKOIeV7adNVCiAX nfKFUhTZrpmWDqKGN3hTya v2B9mZItkZYrdCccTjOhSs YcJIQSl6QhWFu6cHwuS4Eh NQMhPaV9nQMzMIOtURxcUO IsQOPnshY0eW88EXlqjoO0 kXFwu2Dkk69nw899fE7vtV ZfBMP7DRWzTMUiuWRqNWAn ZNY4XZDciIUpK7r4TzMftY DfI1E5KhJlgMGvQ7A9YkUp fAJyK5R5ZcOwpRUjLMXdsF EcCv8skBCibTChta8tsm70 QQM0c1AquSeqSIC7EVN0Tf FxAb5liWVvIWSkSDConCQb DLPkHU5ptYElNWMdaJ3qjo xjXHBnYnJkcmhlYWRccGdi prQgEf8noJnpQTQ6PLmyM8 mzhB4fPeT8JMayU0arrI9z DJa9SLfemUH1VVPunM7mTJ 3faxmxd7gpLfJeSQ8fhmzs b2unQnQrXR2migr6x5cvOa XvCT0gdojez9lnOuWxOQmf SCKgswuqLGUsk7TjaoekLZ Pcq2McX7QfwSngA27puZdu M39aCUVluMlbkY2ibRpmpC 5cZjBcZnMyNFxwYXJkXHBs YWluXGYxXGZzMjBcbGFuZz EwMzNcaGljaFxmMVxkYmNo ZHOkVEetA9xfPpXhKaPoUT BBLiBSZWNlaXZlZCBpbiBm s3RhKLgyduFdMMYsgWKkMO dpdGggdGhlIHBhdGllbnRc Z3A9xiScTT3aUAEqZNBrV1 QcWSDcR05fGPDqnG7wVEIg PD4aZKCxa6QrrcLtcccpY5 2wd87xmZ4uaXVeWOYcQBWr f14loWU6zjPuJkHtAHCrUZ WsKO6yBXDttmHwk7M2KOXn c6L7EXUvUEHeqTZhmvvoXW 50VJaeIU58EFmiCA0kFJUr QoPDwDOhz4PnD6djSM1jmI Ujj3OwlWq3hCShVXveQEAy cW6ufO7nVIHfLZcbtaMpaK luZSBCLiBSZWNlaXZlZCBp ldQdc2AiAUujfkQsLDJdgI VkIHdpdGggdGhlIHBhdGll zzJsS7M1sbFqID4kFUYlKH XxA4LiTWXjC76yVHEweI9y QUObEN6pPAMwvDyvm6nuPS TeeH8zDAQdqLlkToIxgnOz A62nl9ezdBGix2RcCgIjqW MmZUSbp2CohODvLOQdymyy t10xlGH6sWDopWMhrwEnX9 kyCzXwgcGadHwjMFMxo77c BZ04VGveRS1zNAlnEV4iTV TnRCPtZTWqVMP2FJZiWiV1 IDAuMiBjbSBhbmQgbWVhc3 OvcW7sWVOiPtC8YFHuNxR8 VFIxJlOtpEPzqzRdR1rwEY agaOPcXMYtKHBdiRHtnI4t bfGedqCtnGKkqHS9JRVbhW 1gwW42niOqmrSETJ1unPli YNwumE4dXQOyEVEkC1Tskm WsXKwiUKUayc2qcTfhQNsp ShKzEKTyr6u9mNG3gGTsiB K0uSUlpXgtTxZwDL5kvNIx RR0lWXwbTKhahmDkv7UjCW 93uVXwrfGjaeQaRkapo4Oc zWKuZhyjLDCfGDBsp82zjE Y9ziExWvE0KALyRVZjunRn PqO2EZ8ymAewqtDjf8T1IE Niq6K4UCLrAB1dvP7mWPvd IHNpemUgZnJvbSAwLjMgeC JlQxTqiYMkCxMqO08mpJ1w OI47GFooCE3kLGufXZ3tZB NtIGFuZCBtZWFzdXJpbmcg EN3hSFznUY81WLsyCZ9gEN BdFRpvDVPaD2IkR8I2UT6j VGhlIHNwZWNpbWVuIGlzIH K0Kt4feTWkMYDjmeK1w2Qe UQfgEBMeRhflaM6pUIvcew KhF6rUQIJent1= MICROSCOPIC DESCRIPTION j3ngmSTeWVKlnLL5FpKnIK (test code = 3371) Yjp0vwx8OxbYRghJLlJVse dTGxazCumq22nTP3kL99VT 3oBGAxTsE4ZMLrkcU8Ugg9 TINrDIOzpMRfK350d8ckq6 vpueXdgCC0sZcdAYOdhemd SfY1LVenNIZfpmhhEQm0LT ajVYUhfCJ8SWLjrJKkV6Fl BFFlRS4ajjc0XOP4RKhcST PbJlH5MGHowHJtSLEqbKaj JFzqx361ISU6UvDwRFPxim PfuNouoO1hDaNkAOVKSGWc ZN7nKQyyY5duT0BrPPSgXT lspNpox4ldMU9pQM8ioVsa uiOeN4cgtXEhuXTjldMfCr qbTQ6rYETuixetUAQfGc9c Yw2gj7rlejbybBNqkkDcpZ 4slBNhvCE4oW0jTKMgrbUo y2QhyuXiCW8jwWHnuDKoaE PiDKM7r1KpGTJlPZLpkoKu RYzlC00hjhH3IMqhLZCwWJ 4sIJ3yCRrrhBgag0PgF7Mp ktNmvTTiy03tA6UfoDUprm LhbmCit4SwxdDppxChl5X2 wG8qWRE8OGbtzr0mQUalNY J9 [facility] [id number] 18:24:44Surgical Pathology Report Case: [id number] Authorizing Provider: Dewayne Cuevas MD Collected:01/09/2022 11:31 AM Ordering Location: [facility] Endoscopy Received: 01/09/2022 03:51 PM Services Pathologist: [...] ROUTINE STAINS Signing Pathologist Direct Phone Line: [phone] signed by Evelin Wharton MD on 01/12/2022 at 6:24 [id number] reflux disease, polyp of colonA. Polyp, colon- [...] vazquez-pink soft tissue ranging in size from 0.5x [...] Helicobacter microorganisms are seen on routine stains.POC-Glucose [id number] 13:54:18 Test Item Value Reference Range Interpretation Comments POC-Glucose Meter (test 133 mg/dL 70-110 H : TE STED AT [facility] code = 1538) [address] [place] [address], [facility] 30: Supervisor Refining/Techni miguelina ID = [id number] for Rajat, Marybel Lab Interpretation (test Abnormal code = 65216-8) [facility]-Glucose [id number] 13:54:18 Test Item Value Reference Range Interpretation Comments POC-Glucose Meter (test 133 mg/dL 70-110 H : TE STED AT [facility] code = 1538) [address] [place] [address], [facility] 30: Supervisor Refining/Techni miguelina ID = [id number] for Rajat, Marybel Lab Interpretation (test Abnormal code = 33494-3) [facility]-Glucose [id number] 13:54:18 Test Item Value Reference Range Interpretation Comments POC-Glucose Meter (test 133 mg/dL 70-110 H : TE STED AT [facility] code = 1538) [address] [place] [address], [facility] 30: Supervisor Refining/Techni miguelina ID = [id number] for Rajat, Marybel Lab Interpretation (test Abnormal code = 98812-1) [facility] [id number] 13:54:18 Test Item Value Reference Range Interpretation Comments POC-Glucose Meter (test 133 mg/dL 70-110 H : TE STED AT [facility] code = 1538) [address] [place] [address], [facility] 30: Supervisor Refining/Techni miguelina ID = [id number] for Rajat, Marybel Lab Interpretation (test Abnormal code = 12663-8) [facility]-Glucose [id number] 13:54:18 Test Item Value Reference Range Interpretation Comments POC-Glucose Meter (test 133 mg/dL 70-110 H : TE STED AT [facility] code = 1538) [address] [facility], 770 30: Supervisor Refining/Techni miguelina ID = [id number] for Marybel Earl Lab Interpretation (test Abnormal code = 68164-1) [facility] [id number] 13:54:18 Test Item Value Reference Range Interpretation Comments POC-Glucose Meter (test 133 mg/dL 70-110 H : TE STED AT [facility] code = 1538) [address] [place] [address], 770 30: Supervisor Refining/Techni miguelina ID = [id number] for Marybel Earl Lab Interpretation (test Abnormal code = 95804-7) [facility]-Glucose [id number] 13:54:18 Test Item Value Reference Range Interpretation Comments POC-Glucose Meter (test 133 mg/dL 70-110 H : TE STED AT [facility] code = 1538) [address] [place] [address], 770 30: Supervisor Refining/Techni miguelina ID = [id number] for Marybel Earl Lab Interpretation (test Abnormal code = 47879-3) [facility]-GLUCOSE [id number] 13:54:18 Test Item Value Reference Range Interpretation Comments POC-GLUCOSE METER 133 mg/dL 70-110 H : TESTED A T [facility] 6720 (BEAKER) (test code = [facility], 1538) [address]: Supervisor Refining/Techni miguelina ID = [id number] for Marybel Pina POCT-GLUCOSE [id number] 10:12:16 Test Item Value Reference Range Interpretation Comments POC-GLUCOSE METER 135 mg/dL 70-110 H : TESTED A T [facility] 6720 (BEAKER) (test code = [facility], 1538) [address]: Supervisor Refining/Techni miguelina ID = [id number] for MAYELA BROWNING SARS-CoV2/RT-PCR (Asymptomatic ONLY)2022-01-09 09:03:44 Test Item Value Reference Interpretation Comments Range SARS-COV2/RT-PCR Negative Negative The SARS-Co V-2 (test code = target nucleic 39463-1) acids are not detected in thi s [...] S ARS CoV-2 test is a rapid, real-kojo e RT-PCR test intended for th e [...] revoked sooner. Fact Sheet for Healthcare Providers: https://www.Projektino/Documents/Xp ert%20Xpress%20SAR S%20CoV-2/Fact%20S heets/302-3802%20S ARS-COV-2%20HEALTH CARE%20PROVIDERS%2 0FACT%20SHEET.pdf Fact Sheet for Healthcare Patients: https://www.[employer]/Documents/Xp ert%20Xpress%20SAR S%20CoV-2/Fact%20S heets/302-3801%20S ARS-COV-2%20PATIEN T%20FACT%20SHEET.p df Lab Interpretation Normal (test code = 16763-6) [facility]2022-01-09 09:03:44 Test Item Value Reference Interpretation Comments Range SARS-COV2/RT-PCR Negative Negative The SARS-Co V-2 (test code = target nucleic 08696-1) acids are not detected in thi s [...] S ARS CoV-2 test is a rapid, real-kojo e RT-PCR test intended for th e [...] revoked sooner. Fact Sheet for Healthcare Providers: https://www.[employer]/Documents/Xp ert%20Xpress%20SAR S%20CoV-2/Fact%20S heets/302-3802%20S ARS-COV-2%20HEALTH CARE%20PROVIDERS%2 0FACT%20SHEET.pdf Fact Sheet for Healthcare Patients: https://www.[employer]/Documents/Xp ert%20Xpress%20SAR S%20CoV-2/Fact%20S heets/302-3801%20S ARS-COV-2%20PATIEN T%20FACT%20SHEET.p df Lab Interpretation Normal (test code = 43198-7) [facility]omatic ONLY)2022-01-09 09:03:44 Test Item Value Reference Interpretation Comments Range SARS-COV2/RT-PCR Negative Negative The SARS-Co V-2 (test code = target nucleic 86206-7) acids are not detected in thi s [...] S ARS CoV-2 test is a rapid, real-kojo e RT-PCR test intended for th e [...] revoked sooner. Fact Sheet for Healthcare Providers: https://www.[employer]/Documents/Xp ert%20Xpress%20SAR S%20CoV-2/Fact%20S heets/302-3802%20S ARS-COV-2%20HEALTH CARE%20PROVIDERS%2 0FACT%20SHEET.pdf Fact Sheet for Healthcare Patients: https://www.[employer]/Documents/Xp ert%20Xpress%20SAR S%20CoV-2/Fact%20S heets/302-3801%20S ARS-COV-2%20PATIEN T%20FACT%20SHEET.p df Lab Interpretation Normal (test code = 45086-3) [facility]As[facility]omatic ONLY)2022-01-09 09:03:44 Test Item Value Reference Interpretation Comments Range SARS-COV2/RT-PCR Negative Negative The SARS-Co V-2 (test code = target nucleic 54323-0) acids are not detected in thi s [...] S ARS CoV-2 test is a rapid, real-kojo e RT-PCR test intended for th e [...] revoked sooner. Fact Sheet for Healthcare Providers: https://www.[employer]/Documents/Xp ert%20Xpress%20SAR S%20CoV-2/Fact%20S heets/302-3802%20S ARS-COV-2%20HEALTH CARE%20PROVIDERS%2 0FACT%20SHEET.pdf Fact Sheet for Healthcare Patients: https://www.[employer]/Documents/Xp ert%20Xpress%20SAR S%20CoV-2/Fact%20S heets/302-3801%20S ARS-COV-2%20PATIEN T%20FACT%20SHEET.p df Lab Interpretation Normal (test code = 88559-4) [facility]As[facility]omatic ONLY)2022-01-09 09:03:44 Test Item Value Reference Interpretation Comments Range SARS-COV2/RT-PCR Negative Negative The SARS-Co V-2 (test code = target nucleic 91134-5) acids are not detected in thi s [...] S ARS CoV-2 test is a rapid, real-kojo e RT-PCR test intended for th e [...] revoked sooner. Fact Sheet for Healthcare Providers: https://www.[employer]/Documents/Xp ert%20Xpress%20SAR S%20CoV-2/Fact%20S heets/302-3802%20S ARS-COV-2%20HEALTH CARE%20PROVIDERS%2 0FACT%20SHEET.pdf Fact Sheet for Healthcare Patients: https://wwwChai Energy/Documents/Xp ert%20Xpress%20SAR S%20CoV-2/Fact%20S heets/302-3801%20S ARS-COV-2%20PATIEN T%20FACT%20SHEET.p df Lab Interpretation Normal (test code = 06097-2) [facility]As[facility]omatic ONLY)2022-01-09 09:03:44 Test Item Value Reference Interpretation Comments Range SARS-COV2/RT-PCR Negative Negative The SARS-Co V-2 (test code = target nucleic 19965-7) acids are not detected in thi s [...] S ARS CoV-2 test is a rapid, real-kojo e RT-PCR test intended for th e [...] revoked sooner. Fact Sheet for Healthcare Providers: https://www.[employer]/Documents/Xp ert%20Xpress%20SAR S%20CoV-2/Fact%20S heets/302-3802%20S ARS-COV-2%20HEALTH CARE%20PROVIDERS%2 0FACT%20SHEET.pdf Fact Sheet for Healthcare Patients: https://www.[employer]/Documents/Xp ert%20Xpress%20SAR S%20CoV-2/Fact%20S heets/302-3801%20S ARS-COV-2%20PATIEN T%20FACT%20SHEET.p df Lab Interpretation Normal (test code = 35894-2) [facility]As[facility]omatic ONLY)2022-01-09 09:03:44 Test Item Value Reference Interpretation Comments Range SARS-COV2/RT-PCR Negative Negative The SARS-Co V-2 (test code = target nucleic 97911-2) acids are not detected in thi s [...] S ARS CoV-2 test is a rapid, real-kojo e RT-PCR test intended for th e [...] revoked sooner. Fact Sheet for Healthcare Providers: https://www.[employer]/Documents/Xp ert%20Xpress%20SAR S%20CoV-2/Fact%20S heets/302-3802%20S ARS-COV-2%20HEALTH CARE%20PROVIDERS%2 0FACT%20SHEET.pdf Fact Sheet for Healthcare Patients: https://www.[employer]/Documents/Xp ert%20Xpress%20SAR S%20CoV-2/Fact%20S heets/302-3801%20S ARS-COV-2%20PATIEN T%20FACT%20SHEET.p df Lab Interpretation Normal (test code = 25850-1) [facility] ([facility])2022-01-09 09:03:44 Test Item Value Reference Range Interpretation Comments SARS-COV2/RT-PCR Negative Negative The SARS-Co V-2 target (test code = nucleic acids a re not 4820284) detected in thi s specimen. Negative result [...] revoked sooner. Fact Sheet for Healthcare Providers: https://[employer].Tippr/Documents/Xpert%20Xpress%20SARS%20CoV-2/Fact%20Sheets/302-3802%48DGIX-MSI-4%20 HEALTHCARE%20PROVIDERS%20FACT%20SHEET.pdf Fact Sheet for Healthcare Patients: https://[employer].Understory/Documents/Xpert%20Xp ress%20SARS%20CoV-2/Fact%20Sheets/302-3801%65QRSX-LNM-2%20PATIENT%20FACT%20SHEET .[id number] 14:57:00 Test Item Value Reference Range Interpretation Comments SURG (test code = SURG) RUN DATE: 08/26/20 [facility] PAGE 1 RUN TIME: 1457 Specimen Inquiry RUN USER: INTERFACE PATIENT: MARIA DE JESUS ACOSTA LOC: [facility] U #: [id number] AGE/SX: 55/F ROOM: RE08/23/20REG DR: Tapan Harper MD : 69 BED: DIS: STATUS: DEP SD TLOC: SPEC #: [id number] RECD: 08/23/20 STATUS: KRISTIN [place] #: [id number] AN: 08/23/[address]: Tapan Harper MD ENTERED: 08/23/20 SP TYPE: SURG OTHR DR: Jaron Irving DO ORDERED: SURG PATH LVL 02/01 COPIES TO: Jaron Irving DO [address] [place], [place] [address] Tapan Harper MD [address] [place] [address] HISTOLOGY: TISSUE ID BLK PCS DIANE LEV [...] - R10.84; K59.00 CPT CODES CPT CODE(S): 85589O1 , , , , , , FINAL DIAGNOSIS A. Colon, right, biopsy: COLONIC MUCOSA WITH NO PATHOLOGIC DIAGNOSIS B. Colon, mid, biopsy: COLONIC MUCOSA WITH NO PATHOLOGIC DIAGNOSIS CONTINUED ON NEXT PAGE RUN DATE: 08/26/20 [facility] - LAB PAGE 2 RUN TIME: 1457 Specimen Inquiry RUN USER: INTERFACE SPEC #: [facility]:[id number] PATIENT: MARIA DE JESUS ACOSTA #[id number] (Continued) FINAL DIAGNOSIS (Continued) C. Colon, left, [...] ba/nr Grossing performed at [facility] Pathology, [address], [address], [place], [place] [address]. Dirt Supervisor: Leeroy Jimenes M.D. MICROSCOPIC DESCRIPTION A. [...] 08/26/20 1457 END OF REPORT GLUCOSE BEDSIDE [id number] 08:29:00 Test Item Value Reference Range Interpretation Comments GLUCOSE BEDSIDE TESTING (test code 156 mg/dL 70-110 H = GLUBED) BASIC METABOLIC [id number] 12:40:00 Test Item Value Reference Range Interpretation [...] CA) 9.0 MG/DL 8.5-10.1 N BASIC METABOLIC [id number] 12:37:00 Test Item Value Reference Range Interpretation [...] 9.0 MG/DL 8.5-10.1 N COVID 19 INHOUSE [id number] 12:37:00 Test Item Value Reference Range Interpretation Comments COVID 19 INHOUSE AG NEGATIVE Negative Per manu facturer, (test code = negative result s should [id number]) be treated aspr esumptive and, if inconsi [...] symptoms co nsistent with COVID-19. CBC W/AUTO [id number] 12:23:00 Test Item Value Reference Range Interpretation [...] (test code NO DIFF/SCN CRITERIA = MDIFF) [id number] 15:34:00 RUN DATE: 12/13/19 [facility] PAGE 1 RUN TIME: 1535 Specimen Inquiry RUN USER: INTERFACE --- ---------PATIENT: MARIA DE JESUS ACOSTA LOC: [place] U #: [id number] AGE/SX: 54/F ROOM: RE12/11/19[facility] DR: Zacarias Kaur MD : 69 BED: DIS: STATUS: DEP [facility] TLOC: SPEC #: [id number] RECD: 12/11/19 STATUS: KRISTIN REQ #: [id number] AN: 12/11/[address] [facility] [address]: Zacarias Kaur MD ENTERED: 12/11/19 SP TYPE: SURG OTHR DR: Jaron Irving DO ORDERED: SURG PATH LVL 01/31 COPIES TO: Jaron Irving [place] [address] [place] [address] Zacarias Kaur MD [address] [place] [address] HISTOLOGY: TISSUE ID BLK PCS DIANE LEV PROCEDURE DISPOSITION ____ ___ ___ ___ GASTRIC ANTRUM A 1 3 GASTRIC ANTRUM B 1 3 PROCEDURES: SURG PATH LVL 4 (12/11/19- 1052) TISSUES: A. GASTRIC ANTRUM - GASTRIC BIOPSY B. GASTRIC ANTRUM - DISTAL GASTRIC BIOPSY CLINICAL HISTORY EPIGASTRIC PAIN -R10.13; NAUSEA -R11.0; VOMITING -R11.10 CPT CODES CPT CODE(S): 03308G2 , , , , , , FINAL DIAGNOSIS A. Stomach, biopsy: MILD CHRONIC GASTRITIS NEGATIVE FOR INTESTINAL METAPLASIA, DYSPLASIA, OR MALIGNANCY NEGATIVE FOR HELICOBACTER PYLORI ORGANISMS B. Stomach, distal, biopsy: MILD CHRONIC GASTRITIS NEGATIVE FOR INTESTINAL METAPLASIA, DYSPLASIA, OR MALIGNANCY CONTINUED ON NEXT PAGE RUN DATE: 12/13/19 [facility] PAGE 2 RUN TIME: 1535 Specimen Inquiry RUN USER: INTERFACE SPEC #: [id number] PATIENT: MARIA DE JESUS ACOSTA #[id number] (Continued)------ ------ FINAL DIAGNOSIS (Continued) NEGATIVE FOR HELICOBACTER PYLORI ORGANISMS GROSS DESCRIPTION A. Gastric biopsy. Received in formalin is a vazquez tissue fragment, 0.5 cm, all as A. B. Distal gastric biopsy. Received in formalin is a vazquez tissue fragment, 0.3 cm, all as B. shivam/nr Grossing performed at [facility] Pathology, [address] [place] [address], [address], [place] [address]. Dirt Supervisor: Leeroy Jimenes M.D. MICROSCOPIC DESCRIPTION A. [...] 12/13/19 1534 END OF REPORT GLUCOSE BEDSIDE [id number] 06:17:00 Test Item Value Reference Range Interpretation Comments GLUCOSE BEDSIDE TESTING (test code 170 mg/dL 70-110 H = GLUBED) UR HCG [id number] 11:12:00 Test Item Value Reference Range Interpretation Comments UR HCG QUAL (test code = HCGQLU) NEGATIVE NEGATIVE Consult Notes Date/Time Note Provider Source 2023-06-18 Associated Order(s): CONSULT MAJOR SALES ASSOCIATE-ADULT George Ortiz [facility] 11:40:33-00:00 Test Eng Note Please SFA completed on 06/17. George Ortiz LMSW [employer] Work[employer] Care Management-Test Eng Electronically signed by George Ortiz LMSW a t 06/18/2023 11:41 AM CDT 2023-06-18 Associated Order(s): CONSULT NEUROLOGY; CONSULT NEUROLOGY [facility] 09:41:18-00:00 Formatting of this note is different from the or iginal. Neurology Consultation Patient's Name: Maria De Jesus Acosta Date of : 1965 Age: 58 yrs Date of Admission: 06/17/2023 Date of Service: 06/18/2023 Reason for Consultation: Weakness, ataxia History of Present Illness: 58-year-old right-handed lad y with a history of adenoid cystic carcinoma s/p chemoradiation, as well as a TIA affecting her left side, who is doing well until about 2 to 3 weeks ago, where she started t o have multiple symptoms, in cluding bifrontal throbbing headache associated with nausea and photo and phonophobia, although she has no history of migraines. She also describes worsening balance, and vee ring to the right. She descr ibes worsening numbness and tingling in both of her legs as well as in her left arm. She describes a diplopia, that persists when she closes either eye, with images diagonal from each other. Past Medical History: Diagnosis Date Anxiety Back pain CHF (congestive heart failure) COPD (chronic obstructive pulmonary disease) Depression Gout HTN (hypertension) Neuropathy bilateral LE TIA (transient ischemic attack) X 2 Past Surgical History: Procedure Laterality Date APPENDECTOMY CHOLECYSTECTOMY LAPAROSCOPIC GASTRIC SLEEVE (SHX) 08/2018 OTHER Gastric banding OTHER partial hysterectomy, c sec tion, surgery to shoulder and knee, lap band and it was removed, this sep 2017 had gastric sleeve Allergies Allergen Reactions Doxycycline Nausea and/or Vomiting Other reaction(s): n/v, Nausea/Vomiting, Unknow n Metoclopramide Nausea and/or Vomiting and Unkno wn - See comments Told by anesthesiologist at she should add to her allergies following a procedure [place] Nausea and/or Vomiting And Kiwi And Kiwi Kiwi Unknown - See comments and Other - See com ments Thais [Metoclopramide Hcl] Unknown - See comme nts Told by anesthesiologist ross at she should add to her allergies following a procedure [place] Juice Nausea and/or Vomiting Medication Administration Record reviewed. Current Facility-Administered Medications: ergocalciferol (vitamin d2) (CALCIFEROL) capsule 50,000 Units, 50,000 Units, Oral, QWEEKLY, Pastora Figueroa MD magnesium sulfate in water 2 gram/50 mL (4 %) infusion 2 g, 2 g, IV Piggyback, ONCE, Pastora Figueroa MD albuterol (PROVENTIL) 2.5 m g /3 mL (0.083 %) nebulizer solution 2.5 mg, 2.5 mg, Inhalation, QID, Chio Baron MD, 2.5 mg at 06/18/23 0656 allopurinoL (ZYLOPRIM) tabl et 300 mg, 300 mg, Oral, BID, Pastora Figueroa MD, 300 mg at 06/18/23 0801 ALPRAZolam (XANAX) tablet 2 mg, 2 mg, Oral, TID PRN, Pastora Figueroa MD amLODIPine (NORVASC) tablet 5 mg, 5 mg, Oral, DAILY, Pastora Figueroa MD, 5 mg at 06/18/23 08 atorvastatin (LIPITOR) tab let 40 mg, 40 mg, Oral, QHS, Pastora Figueroa MD, 40 mg at 06/17/23 210 budesonide-formoteroL (SYMB ICORT) 160-4.5 mcg/actuation inhaler 2 Puff, 2 Puff, Inhalation, BID, Pastora Figueroa MD, 2 Puff at 06/18/23 0658 cloNIDine (CATAPRES) tablet 0.1 mg, 0.1 mg, Oral, TID, Pastora Figueroa MD, 0.1 mg at 06/18/23 0801 dextrose 10% (D10W) bolus i nfusion 250 mL, 250 mL, IV Infusion, PRN - SEE INSTRUCTIONS, Pastora Figueroa MD enoxaparin (LOVENOX) inject ion 40 mg, 40 mg, Subcutaneous, DAILY, Pastora Figueroa MD, 40 mg at 06/18/23 08 fluticasone propionate 50 m cg/actuation nasal spray 2 [place], 2 [place], Nasal, DAILY, Pastora Figueroa MD, 2 [place] at 06/18/23 08 gabapentin (NEURONTIN) tabl et 600 mg, 600 mg, Oral, TID, Pastora Figueroa MD, 600 mg at 06/18/23 08 glucagon (GLUCAGEN DIAGNOST IC KIT) injection 1 mg, 1 mg, Intramuscular, PRN, Pastora Figueroa MD hydrALAZINE (APRESOLINE) ta blet 100 mg, 100 mg, Oral, TID, Pastora Figueroa MD, 100 mg at 06/18/23 08 hydroCHLOROthiazide (ESIDRI X) capsule 12.5 mg, 12.5 mg, Oral, DAILY, Pastora Figueroa MD, 12.5 mg at 06/18/23 08 HYDROcodone-acetaminophen ( NORCO) 10-325 mg tablet 1 tablet, 1 tablet, Oral, Q6HPRN, Margie Beebe MD, 1 tablet at 06/18/23 0808 insulin glargine (LANTUS U- 100) injection 140 Units, 140 Units, Subcutaneous, QHS, Pastora Figueroa MD, 140 Units at 06/17/23 210 insulin lispro (human) (Hum aLOG U-100) injection 20 Units, 20 Units, Subcutaneous, TID MEALS, Pastora Figueroa MD, 20 Units at 06/18/23 08 ipratropium (ATROVENT) 0.02 % nebulizer solution 0.5 mg, 0.5 mg, Inhalation, QID, HillChio MD, 0.5 mg at 06/18/23 0656 labetaloL (NORMODYNE) injec tion 10 mg, 10 mg, Slow IV Push, [id number], Pastora Figueroa MD lisinopriL (PRINIVIL,ZESTRI L) tablet 40 mg, 40 mg, Oral, DAILY, Pastora Figueroa MD, 40 mg at 06/18/23 0801 metoprolol tartrate (LOPRES SOR) tablet 100 mg, 100 mg, Oral, BID, Pastora Figueroa MD, 100 mg at 06/18/23 08 mirtazapine (REMERON) table t 15 mg, 15 mg, Oral, QHS, Pastora Figueroa MD, 15 mg at 06/17/232102 NaCl 0.9% (NS) injection 5 mL, 5 mL, Slow IV Push, PRN - SEE INSTRUCTIONS, Chio Baron MD ondansetron (ZOFRAN (PF)) i njection 4 mg, 4 mg, Slow IV Push, Q6HPRN, Margie Beebe MD, 4 mg at 06/18/23 08 pantoprazole (PROTONIX) EC tablet 40 mg, 40 mg, Oral, BID, Pastora Figueroa MD, 40 mg at 06/18/23 08 Sliding Scale Insulin - Lis pro (HumaLOG), , Subcutaneous, TID MEALS+HS, Pastora Figueroa MD, 2 Units at 06/18/23 08 spironolactone (ALDACTONE) tablet 25 mg, 25 mg, Oral, DAILY, Pastora Figueroa MD, 25 mg at 06/18/23 08 zolpidem (AMBIEN) tablet 10 mg, 10 mg, Oral, QHS, Pastora Figueroa MD, 10 mg at 06/17/232101 Social History: reports that she has quit s moking. Her smoking use included cigarettes. She smoked an average of .5 packs per day. She has never used smokeless tobacco. She reports that she does not drink alcohol and does not use drugs. Family History: family history includes Jackson nary Heart Disease in her mother; Diabetes in her father, mother, and another family member; Hypertension in her mother; Kidney disease in her father. Review of Systems I reviewed 10 ROS, and all w ere negative except for what was documented in the HPI. Vitals: 06/18/23 0720 BP: (!) 157/93 Pulse: 71 Resp: 18 Temp: SpO2: 100% Physical Exam Neurological Exam: Mental status: The patient i s awake, alert and oriented x3. Fluent, no dysarthria. Cranial nerves: Extraocular movements are intact, pupils are round and reactive to light, visual platt are full to confrontation. Facial sensation is intact in all 3 divisions of the trigeminal bilater ally. Face is symmetric. Tongue, uvula, and jamie te are midline. No ophthalmoparesis noted Motor examination: No drift. Strength is 5/5 in all 4 extremities proximally and distally. Sensory examination is intact to light touch estefani aterally. No dysmetria on [id number]. Reflexes are symmetric throughout. Gait is deferred, needs walker Diagnostic Studies: Recent Results (from the past 24 hour(s)) Prothrombin Time / INR - Code Stroke Collection Time: 06/17/23 2:40 PM Result Value Ref Range PROTIME PATIENT 11.8 10.1 - 12.6 Seconds INR 1.0 aPTT - Code Stroke Collection Time: 06/17/23 2:40 PM Result Value Ref Range APTT Patient 31 26 - 36 Seconds CBC without Diff - Code Stroke Collection Time: 06/17/23 2:40 PM Result Value Ref Range WBC 9.12 4.30 - 11.10 10*3/?L RBC 4.81 3.93 - 5.25 10*6/?L HGB 14.9 11.6 - 15.0 g/dL HCT 45.6 (H) 35.7 - 45.2 % MCH 31.0 25.9 - 32.8 pg MCV 94.8 80.6 - 95.5 fL MCHC 32.7 31.6 - 35.1 g/dL PLT 215 166 - 358 10*3/?L MPV 10.8 9.5 - 12.9 fL RDW-CV 12.8 12.0 - 15.5 % RDW-SD 44.3 39.0 - 49.9 fL NRBC x10^3 <0.01 10*3/?L NRBC/100 WBC 0.0 0.0 - 10.0 /100 WBCs IPF % Troponin I - Code Stroke Collection Time: 06/17/23 2:40 PM Result Value Ref Range TROPONIN I 0.005 <=0.034 ng/mL Basic Metabolic Panel (NA, K , CL, CO2, Glucose, BUN, Creatinine, CA) - Code Stroke Collection Time: 06/17/23 2:40 PM Result Value Ref Range NA 139 135 - 145 mmol/L K 4.0 3.5 - 5.0 mmol/L CL 99 98 - 108 mmol/L CO2 TOTAL 31 23 - 31 mmol/L AGAP 9 2 - 16 BUN 13 7 - 23 mg/dL GLUCOSE 217 (H) 70 - 110 mg/dL CREATININE 0.62 0.50 - 1.04 mg/dL CALCIUM 9.1 8.6 - 10.6 mg/dL eGFR 99.6 mL/min/1.73m2 COVID-19 (ID NOW TESTING) Collection Time: 06/17/23 2:40 PM Specimen: NASOPHARYNGEAL SWAB Result Value Ref Range SARS-CoV-2 Rapid ID NOW Not Detected Not Detect ed N-TERMINAL PRO-BNP Collection Time: 06/17/23 2:40 PM Result Value Ref Range NT-proBNP 25 <=125 pg/mL POCT GLUCOSE (AUTOMATED) Collection Time: 06/17/23 3:08 PM Result Value Ref Range POCT GLU 198 (H) 70 - 110 mg/dL POCT Glucose (Age >30 Days) - Code Stroke Collection Time: 06/17/23 3:46 PM Result Value Ref Range POCT Glu (age>30days) 190 (A) 70 - 110 mg/dL Fasting Lipd Panel (39686)(TOTAL CHOLESTEROL, TR IGLYCERIDES, HDL) Collection Time: 06/17/23 4:35 PM Result Value Ref Range CHOL 172 120 - 200 mg/dL HDL 42 (L) >50 mg/dL HDLC RATIO 4.1 <=4.5 TRIG 233 (H) 30 - 170 mg/dL LDL CHOL 83 <=160 mg/dL VLDL 47 5 - 60 mg/dL Glycosyated Hemoglobin (A1C) Collection Time: 06/17/23 4:35 PM Result Value Ref Range HGB A1C 9.4 (H) 4.0 - 5.7 % THYROID STIMULATING HORMONE Collection Time: 06/17/23 4:45 PM Result Value Ref Range TSH 0.98 0.45 - 4.70 mIU/L VITAMIN D, 25-OH Collection Time: 06/17/23 4:45 PM Result Value Ref Range VIT D 25OH <13 (L) 25 - 80 ng/mL VITAMIN B12, LEVEL Collection Time: 06/17/23 4:45 PM Result Value Ref Range VIT B12 860 240 - 930 pg/mL FOLATE Collection Time: 06/17/23 4:45 PM Result Value Ref Range FOLATE SER 12.6 3.0 - 20.0 ng/mL POCT GLUCOSE (AUTOMATED) Collection Time: 06/17/23 8:56 PM Result Value Ref Range POCT GLU 221 (H) 70 - 110 mg/dL PHOSPHORUS Collection Time: 06/18/23 4:23 AM Result Value Ref Range PHOSPHORUS 5.6 (H) 2.5 - 5.0 mg/dL MAGNESIUM Collection Time: 06/18/23 4:23 AM Result Value Ref Range MAGNESIUM 1.4 (L) 1.7 - 2.4 mg/dL BASIC METABOLIC PANEL (NA, K, CL, CO2, GLUCOSE, BUN, CREATININE, CA) Collection Time: 06/18/23 4:23 AM Result Value Ref Range NA 140 135 - 145 mmol/L K 4.0 3.5 - 5.0 mmol/L CL 100 98 - 108 mmol/L CO2 TOTAL 30 23 - 31 mmol/L AGAP 10 2 - 16 BUN 10 7 - 23 mg/dL GLUCOSE 164 (H) 70 - 110 mg/dL CREATININE 0.54 0.50 - 1.04 mg/dL CALCIUM 8.8 8.6 - 10.6 mg/dL eGFR 116.8 mL/min/1.73m2 CBC WITH DIFF Collection Time: 06/18/23 4:23 AM Result Value Ref Range WBC 6.94 4.30 - 11.10 10*3/?L RBC 4.83 3.93 - 5.25 10*6/?L HGB 15.1 (H) 11.6 - 15.0 g/dL HCT 45.3 (H) 35.7 - 45.2 % MCV 93.8 80.6 - 95.5 fL MCH 31.3 25.9 - 32.8 pg MCHC 33.3 31.6 - 35.1 g/dL RDW-SD 44.1 39.0 - 49.9 fL RDW-CV 12.7 12.0 - 15.5 % PLT 210 166 - 358 10*3/?L MPV 10.2 9.5 - 12.9 fL NRBC/100 WBC 0.0 0.0 - 10.0 /100 WBCs NRBC x10^3 <0.01 10*3/?L GRAN MAT (NEUT) % 52.5 % IMM GRAN % 0.30 % LYMPH % 30.5 % MONO % 10.8 % EOS % 5.2 % BASO % 0.7 % GRAN MAT x10^3(ANC) 3.64 1.88 - 7.09 10*3/uL IMM GRAN x10^3 <0.03 0.00 - 0.06 10*3/uL LYMPH x10^3 2.12 1.32 - 3.29 10*3/uL MONO x10^3 0.75 0.33 - 0.92 10*3/uL EOS x10^3 0.36 0.03 - 0.39 10*3/uL BASO x10^3 0.05 0.01 - 0.07 10*3/uL POCT GLUCOSE (AUTOMATED) Collection Time: 06/18/23 7:21 AM Result Value Ref Range POCT GLU 174 (H) 70 - 110 mg/dL Imaging Studies: Neuro-imaging was directly v iewed by me, and agree with formal report that notes: CT ANGIOGRAM HEAD Result Date: 06/17/2023 Unremarkable CTA head and ne ck without vascular malformations, focal stenosis or significant atherosclerotic disease. Please note retropharyngeal course of common carotid arteries bilaterally. Prelimina ry Report Dictated by Reside nt: Reggie Bernard MD I, Sirena Murillo MD., have reviewed this study and agree with the above report. CT ANGIOGRAM NECK Result Date: 06/17/2023 Unremarkable CTA head and ne ck without vascular malformations, focal stenosis or significant atherosclerotic disease. Please note retropharyngeal course of common carotid arteries bilaterally. Prelimina ry Report Dictated by Reside nt: Reggie Bernard MD I, Sirena Murillo MD., have reviewed this study and agree with the above report. CT HEAD WO CONTRAST Result Date: 06/17/2023 No acute intracranial abnorm ality. Preliminary Report Dictated by Resident: Reggie Bernard MD I, Octavio Gerber MD., have reviewed this study and agree with the above report. Impression: 1. Pt presents with ataxia, headache, diplopia, left sided weakness, numbness Ddx: CVA, Brain mets #H/o TIA: restart ASA 81 #DM, HTN, likely contributing to the above # Adenoid cystic carcinoma of nasopharynx Recommendations: 1. Your medical management 2. MRI brain w/wo GRABIEL to cla rify diagnosis, if shows stroke then needs full stroke w/u Oncology on board PT/OT Cont Statin -Normal blood pressure parameters at this point. Thank you for allowing us to participate in the care of your patient. Please do not hesitate to call Neurology with any further questions or changes in neurological status. Electronically signed by Carmella Dixon MD at 9:46 AM CDT 2023-06-18 Associated Order(s): CONSULT SPEECH [facility] 09:33:00-00:00 Formatting of this note is different from the or iginal. PLATE CORRECTOR Speech-Language Pathology Speech-Language Evaluation 06/18/2023 Maria De Jesus Acosta : 1965 Age/Sex: 58 year old female Time IN/OUT: Referring Physician: Pastora Figueroa MD Date of Referral: 06/17/2023 Reason for Referral: stroke activation (dysphagia, speech-language/cognitive-linguistic) Date of Admission/Onset: 06/17/2023 SUBJECTIVE: Patient awake and sitting at EOB. Her speech was subjectively slowed. Patient reports difficulties with both thinking of what she wants to say and getting it out. Patient with hx of oropharyngeal dyspha sis in the setting of nasoph aryngeal cancer; she states that she has good days and bad days when eating. Yesterday was not a good day, but breakfast this morning was soft and felt ok. OBJECTIVE: is being seen for a speech-language evaluation. Maria De Jesus Acosta is a 58 year old female admitted for imbalance, left-side weakness, and slurred speech with PMH significant for DM 2, CHF, COPD, TIA x2, adenoid c ystic carcinoma of nasopharynx (radiation 12/23/2022-02/12/2023, chemotherapy 12/24/2022-01/21/2023), further listed below. Pertinent Imaging: CT ANGIOGRAM HEAD Result Date: 06/17/2023 Unremarkable CTA head and ne ck without vascular malformations, focal stenosis or significant atherosclerotic disease. Please note retropharyngeal course of common carotid arteries bilaterally. Prelimina ry Report Dictated by Reside nt: Reggie Bernard MD I, Sirena Murillo MD., have reviewed this study and agree with the above report. CT ANGIOGRAM NECK Result Date: 06/17/2023 Unremarkable CTA head and ne ck without vascular malformations, focal stenosis or significant atherosclerotic disease. Please note retropharyngeal course of common carotid arteries bilaterally. Prelimina ry Report Dictated by Reside nt: Reggie Bernard MD I, Sirena Murillo MD., have reviewed this study and agree with the above report. CT HEAD WO CONTRAST Result Date: 06/17/2023 No acute intracranial abnorm ality. Preliminary Report Dictated by Resident: Reggie Bernard MD I, Octavio Gerber MD., have reviewed this study and agree with the above report. CT CHEST PULMONARY ANGIOGRAM Result Date: 05/26/2023 Impression: No CTA evidence for pulmonary embolus. No acute pulmonary process. Mild cardiomegaly with mild coronary arteriosclerosis. Status post gastric sleeve procedure without complicating features a ppreciated in the visualized proximal stomach. RL: 460 AFC: [id number] CHEST 1 VW Result Date: 05/26/2023 Impression: Mild cardiomegal y Questionable blunting of the left costophrenic sulcus. This may reflect scarring or small pleural effusion. END REPORT RL: 460 AFC: [id number] Previous PLATE CORRECTOR Services/Communication History: Patient sees PLATE CORRECTOR at [facility] on 0 01/14/2023, 02/10/2023, and 06/17/2023. Patient completed MBS on 12/14/2022 (Pre-XRT?) which found flash penetration of thin liquids and gave a DIGEST score of 0 (S0, E0). Past Medical History: Diagnosis Date Anxiety Back pain CHF (congestive heart failure) COPD (chronic obstructive pulmonary disease) Depression Gout HTN (hypertension) Neuropathy bilateral LE TIA (transient ischemic attack) X 2 Past Surgical History: Procedure Laterality Date APPENDECTOMY CHOLECYSTECTOMY LAPAROSCOPIC GASTRIC SLEEVE (SHX) 08/2018 OTHER Gastric banding OTHER partial hysterectomy, c sec tion, surgery to shoulder and knee, lap band and it was removed, this sep 2017 had gastric sleeve Prior Level of Function and Living Situation: Patient currently post-XRT for nasopharyngeal cancer, requires assist for ADLs and IADLs General Behavior: Alert, Calm, and Cooperative Oriented to: person, place, time, and situation Hearing: WFL for speech Respiratory Status: room air Oral Motor Exam Dentition and Oral Cavity: dentate, natural dent ition, and dry oral mucosa Face within normal limits and symmetrical Jaw within normal limits and symmetrical Lips impaired function, garret acterized by decreased movement on the right (slight) Tongue within normal limits and midline on protr usion Palate within normal limits and symmetrical Vocal Quality clear Volitional Cough present SPEECH-LANGUAGE EVALUATION Formal assessment measures: Western Aphasia Battery-Revi sed (WAB-R), Bedside form: The Western Aphasia Battery - Revised, Bedside Form is a screening tool used to assess expressive language, receptive language, reading, and writin g. Subtest scores as well as composite aphasia score and language score are included below. Subtest Raw Score Comments Spontaneous Speech: Content 08/10 Patient was able to fully provide details and was grammatically accurate Spontaneous Speech: Fluency 07/11 07/11 - Some hesitations and word-finding di fficulty Auditory Verbal Comprehension: Yes/No Questions /10 One error with complex yes/no Sequential Commands /10 No errors Repetition /10 No errors Object Naming /10 No errors Bedside Aphasia Score (Kamari nt, Fluency, Auditory Verbal Comprehension, Sequential Commands, Repetition, and Object Naming): 96.7/100 Bedside Aphasia Classification: n/a Bedside Aphasia Severity: WNL 93.8 and above Informal assessment tasks: CASP Speech-Language Evaluation Auditory Comprehension: Within Functional Limits - Follows simple conversation: yes - Follows complex conversation: yes - Identifies left vs right: yes Verbal Expression: Within Functional Limits - Communicates basic wants and needs verbally: y es, with ease - Communicates complex thoughts verbally: yes, w ith ease Motor Speech: Mild decrease in rate of speech - Intelligibility: Pt was ju dged to be 100% intelligible in conversation/spontaneous speech to an unfamiliar listener. 10-point intelligibility rat ing scale (Darrian, 2005): 10 - Normal in all environments without restrictions on content without need for repairs - Respiration: adequate breath support for conve rsational speech - Phonation: WNL - Articulation: WNL - Resonance: WNL - Prosody: decreased rate of speech - Signs of Apraxia: none Aware of errors and deficits: Always Attempts to self-correct errors: N/A Independent use of strategies: N/A Stimulable for: N/A Patient/Family/Staff Educati on: Provided verbally. Discussed findings of evaluation, recommendations and PLATE CORRECTOR plan of care. Patient/family verbalized understanding and is in agreement with plan of care. RN and referring provider notified of findings a nd recommendations. Patient/Family Goal: improved speech ASSESSMENT/IMPRESSIONS: Maria De Jesus Wiseuilar pre sents with grossly safe and functional speech, receptive language, and expressive language skills to provide personal information, health/safety information, and to fulfill f unctional communication. Jasmyn caceres's rate of speech appears slowed, but she is approximately 100% intelligible in conversation. Patient was also able to follow commands and answer questions appropriately. Patient has passed dysphagi a screener and no cognitive-linguistic deficits were reported or observed. No further acute services appear indicated at this time. Prognosis is good for functi onal communication with time due to above findings. PLAN/RECOMMENDATIONS: 1. No further acute PLATE CORRECTOR serv ices indicated at this time, so service is signing off. Please re-consult if indicated. Thank you. 2. Discharge Recommendations : Return to prior living situation. Partial assistance with ADLs. Partial assistance with IADLs (medication management, finances, cooking, driving, making appointments). Bridget Dent MS, [facility]-PLATE CORRECTOR Speech-Language Pathologist [email or web address] PLATE CORRECTOR coverage provided at [facility] locations, please use the following numbers based on patient's location to contact this PLATE CORRECTOR: [place] Speech: [phone] (rehab department) [place] Speech: [phone] (main office) [place] Speech: [phone] ([facility] office) If unable to reach PLATE CORRECTOR at these numbers, please text [phone] 2023-06-18 Associated Order(s): CONSULT ADULT OCCUP ATIONAL THERAPY Yahaira Zimmer OT [facility] 09:07:00-00:00 Formatting of this note is different from the or iginal. OT GENERAL EVALUATION Consult received via [employer], E MR reviewed and evaluation completed 06/18/23. Patient referred to occupational therapy for evaluation and treatment secondary to left sided weakness. Patient agreeable to participate in occupational therapy. Discharge Recommendations: Therapy Needs and Potential: - Patient would benefit from continued skilled occupational therapy services to address: Decline in basic activities of daily living, Decline in instrumental activities of da ramses living, Decreased strength, and Decreased en durance - Patient demonstrates good potential to improve and meet therapy goals with further skilled occupational therapy services. - Patient appears motivated to improve their B/IADLs and return to their previous level of function. Challenges to Home Transition:- Requires physica l assistance for BADLS - Requires physical assistance for IADLS Equipment Recommendations:None PLAN OF CARE: At least 3x/week Precautions: Weight bearing status: NA General: PPE Utilized: Gloves, Fall, and O2 per NC Bracing: N/A Current Occupational Performance and/or Treatmen t: AM-PAC 6 Clicks (Raw Score 0 =Dependent, 24=Independent; Low function Raw Score 0= Dependent, 32=Independent): Feeding: Supervision, pt eating breakfast seated edge of bed with set-up Grooming: Supervision, pt washed hands standing at the sink Toilet Transfer: Supervision, sit<>Stand transfe r from standard toilet Functional Mobility: Pt seated edge of bed upon arrival Sit<>stand transfer from edge of bed with RW; [place] pervision Functional mobility room distances with RW; supe rvision Patient/caregiver educated o n: Fall prevention, General strengthening, Role of OT, and Safety awareness Patient left seated edge of bed with call gudino in reach. Visitor present. Please, see full evaluation below for more detail. OT EVALUATION: 58 year old female Admit date: 06/17/2023 Date of onset: 06/18/2023 Admit Diagnosis: Left-sided weakness [R53.1] OT Diagnosis: Impaired BADL independence, Impaired IADL independence, Weakness, Activity intolerance, Decreased endurance, and Impaired self-care mobility PMH: Past Medical History: Diagnosis Date Anxiety Back pain CHF (congestive heart failure) COPD (chronic obstructive pulmonary disease) Depression Gout HTN (hypertension) Neuropathy bilateral LE TIA (transient ischemic attack) X 2 PSH: Past Surgical History: Procedure Laterality Date APPENDECTOMY CHOLECYSTECTOMY LAPAROSCOPIC GASTRIC SLEEVE (SHX) 08/2018 OTHER Gastric banding OTHER partial hysterectomy, c sec tion, surgery to shoulder and knee, lap band and it was removed, this sep 2017 had gastric sleeve PAIN: Before assessment: 3/10 After assessment: 01/08 Location: spine Pain Management: Decreased movement aides in [place] e pain reduction OCCUPATIONAL ROLES/HOME ENVIRONMENT: Home environment: Lives with son, Single story h ome, and steps to enter. Bathroom access: Yes Bathroom setup: Tub Occupation(s): Disabled Function prior to admission: Household ambulation, Community ambulation, Independent with BADLs, and Independent with IADLs Suspected ischemic or hemorr aghic stroke patient: Yes, Pre-Stroke Modified [place] Score: 0 - No symptoms Equipment prior to admission : 4 wheeled walker, Bedside commode, Home O2 , Rolling Walker, Wheelchair PERFORMANCE SKILLS/FACTORS: UE Muscle Tone: bilateral WNL UE ROM: bilateral AROM WNL UE Strength: ESTEFANI UE 4/5 Hand dominance: right Dexterity/Coordination: bilateral Fine motor ski lls Intact Endurance - Sitting: Good Standing: Fair+ Sitting Balance - Static: Good Dynamic: Good Standing: Balance - Static Fair+ Dynamic: Fair+ Dizziness: No Skin Integrity: No breakdown noted Sensation: bilateral Intact to light touch Oral Motor: WFL Communication: Able to verbalize needs Yes Other : N/A Vision: WFL Yes Other: visual blurring Hearing: good; no issues reported COGNITION: Orientation: person, place, date/time, and situa tion Follows Commands: 1-step Yes Multi-step Yes Inco nsistencies No Safety Awareness/Judgment: Good PROBLEM LIST: Decreased inde pendence with ADL and Decreased strength/endurance for functional activity REHAB POTENTIAL/PROGNOSIS: excellent PATIENT/FAMILY GOALS: return home TREATMENT/INTERVENTION PLAN: Functional motor treatment, Patient/Caregiver Education, Equipment recommendations, Daily living activities, and Therapeutic exercises GOAL(S): By discharge, patie nt will increase independence in daily living skills as follows: 1 Patient will perform toilet transfer with inde pendence. 2 Patient will perform UB dressing with independ ence. 3 Patient will complete groo billy tasks with independence while standing at the sink. 4 Patient will complete toil eting hygiene, including clothing management, with independence. 5 Patient will increase endu nora for functional activity as evidenced by ability to sustain 30 minutes of active participation. 6 Patient/caregiver will hilton balize/demonstrate understanding/proficiency in the following home programs: ADL training, AROM, Fall prevention, General strengthening, Role of OT, and Safety awareness PATIENT-FAMILY TEACHING Patient and Family member pr ovided with preferred teaching of verbal information on ADL training, AROM, Fall prevention, General strengthening, Role of OT, and Safety awareness. Shows readiness to learn . Verbal instruction teachin g provided. Individual is able to read and verbalizes understanding of teaching provided. Yahaira PARKS Department of Occupational Therapy This therapist may not be th e primary therapist please contact rehab services with any questions. Total Timed Treatment Codes: 9 Min Total Treatment Time: 18 Min Patient Complexity Level Mod erate - An occupational therapy evaluation of moderate complexity was completed using the above tests and measures. The following information was obtained: An occupational pr ofile and medical and therap y history, including an expanded review of medical and/or therapy records and additional review of physical, cognitive, or psychosocial history related to current functional performance, Various standar dized and non-standardized assessments were used to identify at least 3-5 performance deficits related to physical, cognitive, or psychosocial skills that result in activity limitations and/or participa tion restrictions, and Clinical decision making of moderate analytic complexity, which includes an analysis of the occupational profile, analysis of data from detailed assess ment(s), and consideration o f several treatment options. Patient may present with comorbidities that affect occupational performance. Minimal to moderate modification of tasks or assistance (e.g., physi mari or verbal) with assessme nt(s) is necessary to enable patient to complete evaluation component. 2023-06-18 Associated Order(s): CONSULT ADULT PHYSI MARI THERAPY Lauren Kirby [facility] 08:58:00-00:00 Formatting of this note is different from the or iginal. PT Patient agreeable to working with physical therapy. Patient met sitting edge of bed. Recommend nursing staff util e RW to safely assist patient with mobility out of the bed or chair. PHYSICAL THERAPY EVALUATION Consult received, chart revi ewed and evaluation complete this date. Patient is referred to PT for evaluation and treatment. Patient is a 58 year old female who presents to hospital for Left-sided weakness [R53.1] . Discharge Recommendations: Therapy Needs and Potential: Patient would benefit from c ontinued physical therapy services to address: decline in bed mobility decline in transfers decline in gait and/or balance decreased strength decreased endurance Patient demonstrates good po tential to improve and meet therapy goals with further physical therapy services. Patient appears motivated to improve their functional mobility and return to their previous level of function. Patient demonstrates ability to tolerate atleast 30-60 minutes of physical therapy with active participation. Patient exhibits limited activity tolerance. Challenges to Home Transition: increased risk of falls Equipment recommendations: Patient has or access to necessary equipment Current Functional Status and/or Treatment: AM-PAC 6 Clicks (Raw Score 0 =Dependent, 24=Independent; Low function Raw Score 0= Dependent, 32=Independent): Raw Score - Basic Mobility : 18 T-Scale Score - Basic Mobility : 41.05 Bed Mobility: Defer due to patient sitting at EOB pre and post therapy Transfers: Sit to stand: Supervision using Rolling Walker Stand to sit: Supervision using Rolling Walker Static/dynamic standing balance: Fair+ Verbal cueing provided for correct hand placemen t and correct use of AD Ambulation: Assisted patient with ambul ation as follows: 40 feet using Rolling Walker and Supervision. Patient presenting with step to, wide, foot flat , slow gait pattern. Therapeutic exercise: patient educated in Adaptive equipment , Compensatory techniques/adaptive strategies, Deep breathing, Edema management, Energy conservation, Fall prevention, General strengthening, Positioning, Relaxati on/breathing techniques, and Safety awareness. and patient/caregiver verbalizes understanding of instructions. Functional Outcome Measures: (Values within the past 12 hours) Tinetti Gait Score- # / 12 Initiation of gait: No hesitancy Step length: On both sides, swing foot passes st ance foot Foot clearance: Neither foot completely clears t he floor Step Symmetry: Step lengths equal Step continuity: Stopping/dis-continuous steps Path: Mild/moderate deviation or uses AD Trunk: Marked sway or uses AD Walking: Heels apart Tinetti Gait Score: 5 Tinetti Gait Score Interpretation: < 7 - Increas ed risk for falls After session, patient sitting edge of bed. Call button provided. PLAN OF CARE: While in the hospital, PT wi ll follow patient at least 2 times per week,once or twice a day, per patient's tolerance and needs. See below for complete details. Admit Date: 06/17/2023 Hospital Diagnosis:Left-sided weakness [R53.1] PT Diagnosis: Abnormality of gait and balance Weight Bearing Precaution: NA General Precautions: PPE used:Gloves, General, F all Bracing/Cast present or required:N/A PMH: Past Medical History: Diagnosis Date Anxiety Back pain CHF (congestive heart failure) COPD (chronic obstructive pulmonary disease) Depression Gout HTN (hypertension) Neuropathy bilateral LE TIA (transient ischemic attack) X 2 PSH: Past Surgical History: Procedure Laterality Date APPENDECTOMY CHOLECYSTECTOMY LAPAROSCOPIC GASTRIC SLEEVE (SHX) 08/2018 OTHER Gastric banding OTHER partial hysterectomy, c sec tion, surgery to shoulder and knee, lap band and it was removed, this sep 2017 had gastric sleeve Prior Living Situation: Live s in a one story home with son and grandchildren, "A few steps" to enter, no rail, DME: Single Point Cane, Roll ing Walker, Four wheeled walker with seat, Wheel Chair Prior level of Mobility: house hold ambulation Suspected ischemic or hemorraghic stroke:No Subjective: Patient stated s he feels "cruddy" today and has an overall feeling of sickness. Patient/Family Goals: to get better Patient/Family verbalizes understanding of condi tion: Yes PAIN: denies pain before and after session COMMUNICATION Primary Language: Setswana Able to Verbalize needs: Yes Vision:good; no issues reported Hearing:good; no issues reported ORIENTATION/COGNITION: Oriented to: person, place, date/time, and situa tion Awake: Yes Alert: Yes Dizzy: No Follows Commands: Yes 1-Step Yes Multi-Step Yes Inconsistent: No NEUROLOGICAL Light Touch: within functional limits bilateral LE, BALANCE: Sitting: Static: Fair+ Dynamic: Poor+ Standing: Static: Fair+ Dynamic: Fair RANGE OF MOTION: within functional limits bilate ral LE STRENGTH: 3+/5 (F+), bilateral LE ENDURANCE: Fair, Nasal canula SKIN INTEGRITY: intact, PROBLEM LIST: Decreased strength, Decreased endu nora, and Decreased balance ASSESSMENT: Patient is a 58 year old female seen secondary to the above listed diagnosis. Patient would benefit from continued PT to address the above listed deficits to maximize independence and safety with functional mobility. Rehabilitation Potential: good Goals: The following goals a re to maximize independence and safety with functional mobility to eventually return to prior living situation and prior functional status. Upon discharge, patient and/or family will demon strate the followin. Supine-sit: Independent 2. Sit to stand: Independent using Rolling Walke r Stand to sit: Independent using Rolling Walker 3. Independent with ambulation, Feet: 150 using least assistive device. 4. Independent up/down 3 stairs using no rails. Treatment Plan: Gait trainin g, Therapeutic exercise, Transfer training, Balance training, Bed mobility training, and Safety education, patient/caregiver education PATIENT EDUCATION: Patient p rovided with preferred teaching of verbal information and demonstration on role of PT, plan of care, and information above. Shows readiness to learn. Verbal instruction teach ing provided. Individual is able to read and verbalizes understanding of teaching provided. Total Time Tx Codes in Minutes: 15 min Total Treatment Time in Minutes: 25 min Lauren Jackson PT, DPT License # [id number] 2023-06-17 Formatting of this note is different from the or iginal. [facility] 18:48:57-00:00 MD [facility] On[facility] Note Patient: Maria De Jesus Acosta Age: 58 year o ld Consult Date: June 17, 2023 History of Present Illness: Maria De Jesus Acosta is a 58 year old female with h/o nasopharynx adenoid cystic carcinoma, s/p chemoradiation, sent to ER for progressive headaches, diplopia, balance changes, speech difficulty. Sy mptoms progressively worse over the past 2-3 wks . ROS 10 point review is o/w negative Past Medical History: Diagnosis Date Anxiety Back pain CHF (congestive heart failure) COPD (chronic obstructive pulmonary disease) Depression Gout HTN (hypertension) Neuropathy bilateral LE TIA (transient ischemic attack) X 2 Past Surgical History: Procedure Laterality Date APPENDECTOMY CHOLECYSTECTOMY LAPAROSCOPIC GASTRIC SLEEVE (SHX) 08/2018 OTHER Gastric banding OTHER partial hysterectomy, c sec tion, surgery to shoulder and knee, lap band and it was removed, this sep 2017 had gastric sleeve Family History Problem Relation Age of Onset Diabetes Other Coronary Heart Disease Mother Diabetes Mother Hypertension Mother Diabetes Father Kidney disease Father Social History Socioeconomic History Marital status: Single Number of children: 1 Years of education: 8 Occupational History Occupation: Disabled Comment: SSDI Tobacco Use Smoking status: Former Packs/day: .5 Types: Cigarettes Smokeless tobacco: Never Tobacco comments: Started at 25- end at 44 Vaping Use Vaping Use: Never used Substance and Sexual Activity Alcohol use: No Drug use: No Sexual activity: Not Currently Partners: Male control/protection: Abstinence Social History Narrative 05/10/18 - disability, 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 Still 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 disabled with SSDI -08/25/2019 MR Costa 05/14/2021 ; has 1 S on who lives with patient; 2 grandchildren also live with her - Anabela De La Garza RN Social Determinants of Health Financial Resource Strain: Low Risk (06/17/2023) Overall Financial Resource Strain (CARDIA) Difficulty of Paying Living Expenses: Not hard at all Food Insecurity: No Food Insecurity (06/17/2023) Hunger Vital Sign Worried About Running Out of Food in the Last Y ear: Never true Ran Out of Food in the Last Year: Never true Transportation Needs: No Transportation Needs () PRAPARE - Transportation Lack of Transportation (Medical): No Lack of Transportation (Non-Medical): No Physical Activity: Insufficiently Active ( 023) Exercise Vital Sign Days of Exercise per Week: 6 days Minutes of Exercise per Session: 20 min Stress: Stress Concern Present (08/25/2019) [facility] of Occupational Health - Occu pational Stress Questionnaire Feeling of Stress : To some extent Social Connections: Unknown (06/17/2023) Social Connection and Isolation Panel [NHANES] Frequency of Communication with Friends and Family: More than three times a week Marital Status: Never Intimate Partner Violence: Not At Risk (08/25/20 19) Humiliation, Afraid, Rape, and Kick questionnai re Fear of Current or Ex-Partner: No Emotionally Abused: No Physically Abused: No Sexually Abused: No Housing Stability: Low Risk (06/17/2023) Housing Stability Vital Sign Unable to Pay for Housing in the Last Year: No Number of Places Lived in the Last Year: 1 Unstable Housing in the Last Year: No Allergies Allergen Reactions Doxycycline Nausea and/or Vomiting Other reaction(s): n/v, Nausea/Vomiting, Unknow n Metoclopramide Nausea and/or Vomiting and Unkno wn - See comments Told by anesthesiologist at she should add to her allergies following a procedure [place] Nausea and/or Vomiting And Kiwi And Kiwi Kiwi Unknown - See comments and Other - See com ments Reglan [Metoclopramide Hcl] Unknown - See comme nts Told by anesthesiologist at she should add to her allergies following a procedure [place] Juice Nausea and/or Vomiting Current Facility-Administered Medications: albuterol (PROVENTIL) 2.5 m g /3 mL (0.083 %) nebulizer solution 2.5 mg, 2.5 mg, Inhalation, QID, Chio Baron MD, 2.5 mg at 06/17/23 1455 allopurinoL (ZYLOPRIM) tablet 300 mg, 300 mg, O ral, BID, Pastora Figueroa MD ALPRAZolam (XANAX) tablet 2 mg, 2 mg, Oral, TID PRN, Pastora Figueroa MD [START ON 06/18/2023] amLODI Haakon (NORVASC) tablet 5 mg, 5 mg, Oral, DAILY, Pastora Figueroa MD atorvastatin (LIPITOR) tablet 40 mg, 40 mg, Ora l, QHS, Pastora Figueroa MD budesonide-formoteroL (SYMB ICORT) 160-4.5 mcg/actuation inhaler 2 Puff, 2 Puff, Inhalation, BID, Pastora Figueroa MD cloNIDine (CATAPRES) tablet 0.1 mg, 0.1 mg, Ora l, TID, Pastora Figueroa MD dextrose 10% (D10W) bolus i nfusion 250 mL, 250 mL, IV Infusion, PRN - SEE INSTRUCTIONS, Pastora Figueroa MD enoxaparin (LOVENOX) inject ion 40 mg, 40 mg, Subcutaneous, DAILY, Pastora Figueroa MD [START ON 06/18/2023] flutic asone propionate 50 mcg/actuation nasal spray 2 [place], 2 [place], Nasal, DAILY, Pastora Figueroa MD gabapentin (NEURONTIN) tablet 600 mg, 600 mg, O ral, TID, Pastora Figueroa MD glucagon (GLUCAGEN DIAGNOST IC KIT) injection 1 mg, 1 mg, Intramuscular, PRN, Pastora Figueroa MD hydrALAZINE (APRESOLINE) ta blet 100 mg, 100 mg, Oral, TID, Pastora Figueroa MD [START ON 06/18/2023] hydroC HLOROthiazide (ESIDRIX) capsule 12.5 mg, 12.5 mg, Oral, DAILY, Pastora Figueroa MD insulin glargine (LANTUS U- 100) injection 140 Units, 140 Units, Subcutaneous, QHS, Pastora Figueroa MD insulin lispro (human) (Hum aLOG U-100) injection 20 Units, 20 Units, Subcutaneous, TID MEALS, Pastora Figueroa MD ipratropium (ATROVENT) 0.02 % nebulizer solution 0.5 mg, 0.5 mg, Inhalation, QID, Chio Baron MD, 0.5 mg at 06/17/23 1454 labetaloL (NORMODYNE) injec tion 10 mg, 10 mg, Slow IV Push, [id number], Pastora Figueroa MD [START ON 06/18/2023] lisino priL (PRINIVIL,ZESTRIL) tablet 40 mg, 40 mg, Oral, DAILY, Pastora Figueroa MD metoprolol tartrate (LOPRES SOR) tablet 100 mg, 100 mg, Oral, BID, Pastora Figueroa MD mirtazapine (REMERON) tablet 15 mg, 15 mg, Oral , QHS, Pastora Figueroa MD NaCl 0.9% (NS) injection 5 mL, 5 mL, Slow IV Push, PRN - SEE INSTRUCTIONS, Chio Baron MD pantoprazole (PROTONIX) EC tablet 40 mg, 40 mg, Oral, BID, Pastora Figueroa MD Sliding Scale Insulin - Lis pro (HumaLOG), , Subcutaneous, TID MEALS+HS, Pastora Figueroa MD [START ON 06/18/2023] spiron olactone (ALDACTONE) tablet 25 mg, 25 mg, Oral, DAILY, Pastora Figueroa MD zolpidem (AMBIEN) tablet 10 mg, 10 mg, Oral, QH S, Pastora Figueroa MD Vitals: 06/17/23 1530 06/17/23 1600 06/17/23 1748 06/17 1751 BP: 130/80 (!) 144/84 (!) 149/78 Pulse: 75 79 75 Resp: Temp: 37.1 ?C (98.8 ?F) TempSrc: SpO2: 90% 93% 98% Weight: 142.4 kg (314 lb) Height: 1.6 m (5' 3") Physical Exam GENERAL: Alert and oriented x 3, in no distress. HEENT: Normocephalic, atraum atic, nonicteric, left dysconjugate gaze, oropharynx clear, no masses. CARDIAC: Regular rate & rhythm, S1 & S2 normal. No murmur. LUNGS: Clear to auscultation. ABDOMEN: obese soft, non tender EXTREMITIES: No edema. LABS CBC BMP LFT WBC x10^3 (/uL) Date Value 01/15/2015 10.6 WBC (10*3/?L) Date Value 06/17/2023 9.12 HGB Date Value 06/17/2023 14.9 g/dL 01/15/2015 16.9 G/DL (H) HCT (%) Date Value 06/17/2023 45.6 (H) 01/15/2015 49.7 (H) PLT x10^3 (/uL) Date Value 01/15/2015 238 PLT (10*3/?L) Date Value 06/17/2023 215 NA Date Value 06/17/2023 139 mmol/L 01/15/2015 139 MMOL/L K Date Value 06/17/2023 4.0 mmol/L 01/15/2015 4.3 MMOL/L CALCIUM Date Value 06/17/2023 9.1 mg/dL 01/15/2015 9.4 MG/DL CL Date Value 06/17/2023 99 mmol/L 01/15/2015 99 MMOL/L BUN Date Value 06/17/2023 13 mg/dL 01/15/2015 12 MG/DL CREATININE Date Value 06/17/2023 0.62 mg/dL 01/15/2015 0.63 MG/DL GLUCOSE Date Value 06/17/2023 217 mg/dL (H) 01/15/2015 96 MG/DL CO2 TOTAL Date Value 06/17/2023 31 mmol/L 01/15/2015 30 MMOL/L ALBUMIN Date Value 05/26/2023 4.2 g/dL 01/14/2015 4.2 G/DL T PROTEIN Date Value 05/26/2023 7.7 g/dL 01/14/2015 7.3 G/DL TOTAL BILI Date Value 05/26/2023 0.5 mg/dL 01/14/2015 0.6 MG/DL ALT(SGPT) (U/L) Date Value 03/28/2019 73 (H) 01/14/2015 32 ALTv (U/L) Date Value 05/26/2023 41 (H) AST(SGOT) (U/L) Date Value 05/26/2023 41 (H) 01/14/2015 24 ALK PHOS (U/L) Date Value 05/26/2023 98 01/14/2015 88 XR CHEST 1 VW Result Date: 06/17/2023 EXAM: XR CHEST 1 VW COMPARIS ON: 05/26/2023 HISTORY: 58 years year-old Female. soa NOT PAGED A STROKE TECHNIQUE: One view AP chest radiograph. FINDINGS/IMPRESSIONS: Lungs: Normal lung volumes. Pulmona ry vascular congestion witho ut overt edema. No pneumothorax or pleural effusion. Heart/Mediastinum: The cardiomediastinal silhouette is normal in size . Bones: No acute osseous lesions are detected. The soft tissues appear normal. Preliminary Report Dictated by Resident: Reggie Bernard MD I, Christi Weston MD., have reviewed this study and agree with the above report. CT ANGIOGRAM HEAD Result Date: 06/17/2023 CT ANGIOGRAM HEAD, CT ANGIOG MARIA L NECK HISTORY: Female 58 years Neuro deficit, acute, stroke suspected NOT PAGED A STROKE NOT PAGED A STROKE COMPARISON: None TECHNIQUE: CT angiographic images of the head and neck were obtained after administration of IV contrast. Multiplanar reformats including maximum intensity projection images submitted for review. FINDINGS: CTA HEAD: The PICA origin is visuali zed bilaterally. The basilar artery is normal in caliber. The superior cerebellar arteries are patent. The posterior cerebral arteries are patent. Hypoplastic P-comm's. The distal cervical, petrous, cav ernous and supraclinoid inte rnal carotid segments are patent. Mild nonspecific irregularity of the left cavernous segment internal carotid artery may represent noncalcified atherosclerotic plaque versus contrast mixing. Vascular c alcifications in the carotid siphons result in no more than mild luminal narrowing. The anterior and middle cerebral arteries are patent. An anterior communicating artery is visualized. CT ANGIOGRAM NEC K: Conventional arch anatomy. Atherosclerosis of the aortic arch. The great vessel ostia are patent. The subclavian arteries demonstrate normal contrast opacification. There is normal opacification of t he common carotid arteries and cervical courses of the bilateral internal carotid arteries. No aneurysm is seen. The vertebral artery ostia patent. No flow-limiting stenosis is identified within the cer vical segments. The visualized lung platt are unremarkable. Visualized neck soft tissues are unremarkable. There are degenerative changes of the spine. Unremarkable CTA head and ne ck without vascular malformations, focal stenosis or significant atherosclerotic disease. Please note retropharyngeal course of common carotid arteries bilaterally. Prelimina ry Report Dictated by Reside nt: Reggie Bernard MD I, Sirena Murillo MD., have reviewed this study and agree with the above report. CT ANGIOGRAM NECK Result Date: 06/17/2023 CT ANGIOGRAM HEAD, CT ANGIOG MARIA L NECK HISTORY: Female 58 years Neuro deficit, acute, stroke suspected NOT PAGED A STROKE NOT PAGED A STROKE COMPARISON: None TECHNIQUE: CT angiographic images of the head and neck were obtained after administration of IV contrast. Multiplanar reformats including maximum intensity projection images submitted for review. FINDINGS: CTA HEAD: The PICA origin is visuali zed bilaterally. The basilar artery is normal in caliber. The superior cerebellar arteries are patent. The posterior cerebral arteries are patent. Hypoplastic P-comm's. The distal cervical, petrous, cav ernous and supraclinoid inte rnal carotid segments are patent. Mild nonspecific irregularity of the left cavernous segment internal carotid artery may represent noncalcified atherosclerotic plaque versus contrast mixing. Vascular c alcifications in the carotid siphons result in no more than mild luminal narrowing. The anterior and middle cerebral arteries are patent. An anterior communicating artery is visualized. CT ANGIOGRAM NEC K: Conventional arch anatomy. Atherosclerosis of the aortic arch. The great vessel ostia are patent. The subclavian arteries demonstrate normal contrast opacification. There is normal opacification of t he common carotid arteries and cervical courses of the bilateral internal carotid arteries. No aneurysm is seen. The vertebral artery ostia patent. No flow-limiting stenosis is identified within the cer vical segments. The visualized lung platt are unremarkable. Visualized neck soft tissues are unremarkable. There are degenerative changes of the spine. Unremarkable CTA head and ne ck without vascular malformations, focal stenosis or significant atherosclerotic disease. Please note retropharyngeal course of common carotid arteries bilaterally. Prelimina ry Report Dictated by Reside nt: Reggie Bernard MD I, Sirena Murillo MD., have reviewed this study and agree with the above report. CT HEAD WO CONTRAST Result Date: 06/17/2023 EXAM: CT HEAD WO CONTRAST HI STORY: 58 years-old Female; Neuro deficit, acute, stroke suspected TECHNIQUE: Axial CT of the head was performed and reconstructed at 5 mm intervals. Coronal and sagittal ref ormatted images were generat ed. COMPARISON: None FINDINGS: The ventricles and cerebral sulci are normal in caliber and configuration. No hydrocephalus, midline shift or pathological extra-axial fluid co llection is present. The bas al cisterns are unremarkable. There is no acute intracranial hemorrhage or significant mass effect. No parenchymal attenuation abnormality. The cota-white matter differentiat ion is preserved. The mastoi d air cells and paranasal air sinuses are clear. The calvarium and central skull base are unremarkable. No acute intracranial abnorm ality. Preliminary Report Dictated by Resident: Reggie Bernard MD I, Octavio Gerber MD., have reviewed this study and agree with the above report. ASSESSMENT/PLAN Ms. Maria De Jesus Acosta is a 58 year old fe male with: # Adenoid cystic carcinoma o f nasopharynx, NOS, Clinical: Stage WINDY (cT4, cN0, cM0). Due to extent of disease, she received concurrent chemoradiation with weekly cisplatin, completed 01/2023. Her restagi ng MRI 04/22/2023 showed impr ovement in disease with marked interval decrease in the enhancing left nasopharyngeal mass, skull base lesions, and perineural invasion. Residual enhancement is seen in these regions favored to represen t treatment effects with follow-up recommended to exclude persistent tumor. She was doing ok until about 2 wks ago when she noted increasing headaches, worsening diplopia and falling toward the right side. She lives in [facility] and presented to several ERs locally but discharge d after normal studies per p t. She was seen today in speech therapy and directed to the ER. Cts are reviewed. MRI has be en requested and I have also recommended that her outside imaging be pushed to [facility] P[facility] for comparison. # DM Poorly controlled # HTN # h/o thrombosis PICC associated R axillary DVT in 01/2023 Treated with lovenox x 1 mo, then interrupted due to non-adherence, then switched to apixaban. She has completed 3 mo of treatment and would recommend routine DVT prophylaxis Will f/u with pt after MRI results received. Vaibhav Power MD [phone] pgr History and Physical Notes Date/Time Note Provider Source 2023-06-17 16:33:48-00:00 Formatting of this note is d ifferent from the original. [facility] XpertMD History & Physical DATE: 06/17/2023 SERVICE: Internal Medicine CHIEF COMPLAINT: Blurred Vision (/) and Headache HISTORY OF PRESENT ILLNESS Maria De Jesus Acosta is a 58 year old female who is referred to the hospital from oncology clinic at [facility] for imbalance, left-sided weakness, and slurred speech. Patient reports she has imbal ance (described as deviation to right when she walks) that is started gradually 2 to 3 weeks ago and has been constant. Patient reports a few days after imbalances started, she was started having diffic ulty speaking and trouble fi nding words to finish her sentences. She reports she has had left-sided right and leg weakness which started gradually a few days ago as well and has remained constant. She was seen in clinic today and was referred to the ED for evaluation and management. Denies any new symptoms today. ALLERGIES Maria De Jesus is allergic to doxycy valverde, metoclopramide, orange, kiwi, reglan [metoclopramide hcl], and orange juice. MEDICATIONS Current Facility-Administered Medications: albuterol (PROVENTIL) 2.5 m g /3 mL (0.083 %) nebulizer solution 2.5 mg, 2.5 mg, Inhalation, QID, Chio Baron MD, 2.5 mg at 06/17/23 9185 allopurinoL (ZYLOPRIM) tablet 300 mg, 300 mg, O ral, BID, Pastora Figueroa MD ALPRAZolam (XANAX) tablet 2 mg, 2 mg, Oral, TID PRN, Pastora Figueroa MD [START ON 06/18/2023] amLODI Haakon (NORVASC) tablet 5 mg, 5 mg, Oral, DAILY, Pastora Figueroa MD atorvastatin (LIPITOR) tablet 40 mg, 40 mg, Ora l, QHS, Pastora Figueroa MD budesonide-formoteroL (SYMB ICORT) 160-4.5 mcg/actuation inhaler 2 Puff, 2 Puff, Inhalation, BID, Pastora Figueroa MD cloNIDine (CATAPRES) tablet 0.1 mg, 0.1 mg, Or al, TID, Pastora Figueroa MD dextrose 10% (D10W) bolus i nfusion 250 mL, 250 mL, IV Infusion, PRN - SEE INSTRUCTIONS, Pastora Figueroa MD enoxaparin (LOVENOX) inject ion 40 mg, 40 mg, Subcutaneous, DAILY, Pastora Figueroa MD [START ON 06/18/2023] flutic asone propionate 50 mcg/actuation nasal spray 2 [place], 2 [place], Nasal, DAILY, Pastora Figueroa MD gabapentin (NEURONTIN) tablet 600 mg, 600 mg, O ral, TID, Pastora Figueroa MD glucagon (GLUCAGEN DIAGNOST IC KIT) injection 1 mg, 1 mg, Intramuscular, PRN, Pastora Figueroa MD hydrALAZINE (APRESOLINE) ta blet 100 mg, 100 mg, Oral, TID, Pastora Figueroa MD [START ON 06/18/2023] hydroC HLOROthiazide (ESIDRIX) capsule 12.5 mg, 12.5 mg, Oral, DAILY, Pastora Figueroa MD insulin glargine (LANTUS U- 100) injection 140 Units, 140 Units, Subcutaneous, QHS, Pastora Figueroa MD insulin lispro (human) (Hum aLOG U-100) injection 20 Units, 20 Units, Subcutaneous, TID MEALS, Pastora Figueroa MD ipratropium (ATROVENT) 0.02 % nebulizer solution 0.5 mg, 0.5 mg, Inhalation, QID, Chio Baron MD, 0.5 mg at 06/17/23 1454 labetaloL (NORMODYNE) injec tion 10 mg, 10 mg, Slow IV Push, [id number], Pastora Figueroa MD [START ON 06/18/2023] lisino priL (PRINIVIL,ZESTRIL) tablet 40 mg, 40 mg, Oral, DAILY, Pastora Figueroa MD metoprolol tartrate (LOPRES SOR) tablet 100 mg, 100 mg, Oral, BID, Pastora Figueroa MD mirtazapine (REMERON) tablet 15 mg, 15 mg, Oral , QHS, Pastora Figueroa MD NaCl 0.9% (NS) injection 5 mL, 5 mL, Slow IV Push, PRN - SEE INSTRUCTIONS, Chio Baron MD pantoprazole (PROTONIX) EC tablet 40 mg, 40 mg, Oral, BID, Pastora Figueroa MD Sliding Scale Insulin - Lis pro (HumaLOG), , Subcutaneous, TID MEALS+HS, Pastora Figueroa MD [START ON 06/18/2023] spiron olactone (ALDACTONE) tablet 25 mg, 25 mg, Oral, DAILY, Pastora Figueroa MD zolpidem (AMBIEN) tablet 10 mg, 10 mg, Oral, QH S, Pastora Figueroa MD Current Outpatient Medications: HYDROcodone-acetaminophen 1 0-325 mg tablet, Take 1 tablet by mouth every 6 (six) hours as needed for Pain (scale 4-6). Indications: chronic pain, Disp: 120 tablet, Rfl: 0 LISINOPRIL 40 mg tablet, TA KE 1/2 TABLET BY MOUTH TWICE DAILY, Disp: 90 tablet, Rfl: 0 hydrALAZINE 100 mg tablet, Take 1 tablet by mouth in the morning and 1 tablet at noon and 1 tablet in the evening., Disp: 90 tablet, Rfl: 1 fluticasone propionate 50 m cg/actuation nasal spray, Use 2 Sprays in each nostril in the morning., Disp: 16 g, Rfl: 3 HYDROcodone-acetaminophen 7 .5-325 mg per tablet, Take 1 tablet by mouth every 6 (six) hours as needed for Pain. Indications: chronic pain, Disp: 120 tablet, Rfl: 0 METOPROLOL TARTRATE 100 mg tablet, TAKE 1 TABLET BY MOUTH TWICE DAILY, Disp: 180 tablet, Rfl: 0 colchicine 0.6 mg tablet, T humberto 1 tablet by mouth in the morning., Disp: 30 tablet, Rfl: 3 HYDROCHLOROTHIAZIDE 12.5 mg capsule, TAKE 1 CAPSULE BY MOUTH DAILY, Disp: 90 capsule, Rfl: 1 BD DEVORAH 2ND GEN PEN NEEDLE 32 gauge x 5/32" Ndle, Take 10 mg by mouth., Disp: , Rfl: Diclofenac Sodium 1 % gel, Apply to area(s) 3 (three) times daily., Disp: 100 g, Rfl: 5 gabapentin 600 mg tablet, T humberto 1 tablet by mouth in the morning and 1 tablet at noon and 1 tablet in the evening., Disp: 90 tablet, Rfl: 5 nhwbvcyd-ajzgsnzit-omaebek rtisone otic solution, INSTILL 4 DROPS TO AFFECTED EAR FOUR TIMES DAILY, Disp: , Rfl: ondansetron 4 mg disintegra ting tablet, DISSOLVE 1 TABLET ON THE TONGUE EVERY 8 HOURS NEEDED, Disp: , Rfl: allopurinoL 300 mg tablet, Take 1 tablet by mouth in the morning and 1 tablet in the evening., Disp: , Rfl: ALPRAZolam 2 mg tablet, Ernie e 1 tablet by mouth 3 (three) times daily as needed., Disp: , Rfl: amLODIPine 5 mg tablet, Take 1 tablet by mouth in the morning., Disp: , Rfl: atorvastatin 20 mg tablet, Take 1 tablet by mouth in the morning., Disp: , Rfl: benzonatate 100 mg capsule, TAKE 1 CAPSULE BY MOUTH THREE TIMES DAILY NEEDED FOR COUGH, Disp: , Rfl: cloNIDine 0.1 mg tablet, Ta ke 1 tablet by mouth in the morning and 1 tablet at noon and 1 tablet in the evening., Disp: , Rfl: codeine-guaifenesin 10-100 mg/5 mL oral solution, TAKE 10 ML BY MOUTH TWICE DAILY NEEDED FOR COUGH, Disp: , Rfl: hydrocortisone 1 % cream, A PPLY TWICE DAILY IN AND AROUND THE RECTUM AFTER SITZ BATH, Disp: , Rfl: metFORMIN 1,000 mg tablet, Take 1 tablet by mouth in the morning and 1 tablet in the evening. Take with meals., Disp: 180 tablet, Rfl: 1 metoprolol succinate XL 50 mg 24 hr tablet, Take 1 tablet by mouth in the morning and 1 tablet in the evening., Disp: , Rfl: oseltamivir 75 mg capsule, TAKE ONE (1) CAPSULE(S) BY MOUTH TWICE A DAY., Disp: , Rfl: triamcinolone acetonide 0.1 % cream, APPLY TOPICALLY TO THE AFFECTED AREA TWICE DAILY, Disp: , Rfl: rizatriptan 5 mg disintegra ting tablet, Take 1 tablet by mouth as needed for Migraine (take 1 on onset of migraine and can repeat in 2 hrs). May repeat in 2 hours if needed, Disp: 10 tablet, Rfl: 0 NITROGLYCERIN 0.4 mg sublin gual tablet, PLACE 1 TABLET UNDER THE TONGUE EVERY 5 MINUTES NEEDED FOR CHEST PAIN., Disp: 25 tablet, Rfl: 0 INSULIN SYRINGE-NEEDLE U-10 0 1 mL 31 gauge x 5/16 Syrg, USE TWICE DAILY WITH MEALS, Disp: 100 Kit, Rfl: 1 Insulin Syringe-Needle U-10 0 1 mL 31 x 3/8" Syrg, Use as directed, Disp: 2 Box, Rfl: 3 BD INSULIN SYRINGE U-500 1/ 2 mL 31 gauge x 15/64" Syrg, USE 1 SYRINGE TWICE DAILY WITH MEALS., Disp: 100 Applicator, Rfl: 0 sucralfate 1 gram tablet, T humberto 1 tablet by mouth before meals and at bedtime., Disp: 38 tablet, Rfl: 0 TRUEPLUS INSULIN 1 mL 30 ga uge x 5/16 Syrg, USE TWICE DAILY, Disp: 1 Box, Rfl: 2 predniSONE 10 mg tablet, Take 10 mg by mouth da ramses., Disp: , Rfl: spironolactone 25 mg tablet, Take 25 mg by mout h daily., Disp: , Rfl: dicyclomine 10 mg capsule, TK 1 C PO IN THE MORNING AND THEN Q 8 H PRF ABDOMINAL PAIN., Disp: , Rfl: ipratropium 0.02 % nebulizer solution, , Disp: , Rfl: MOTEGRITY tablet, TK 1 T PO D, Disp: , Rfl: ondansetron 4 mg tablet, as needed., Disp: , Rf l: TRELEGY ELLIPTA 100-62.5-25 mcg DsDv, INHALE 1 PUFF BY MOUTH EVERY DAY, Disp: , Rfl: zolpidem 10 mg tablet, Take 10 mg by mouth at bedtime as needed., Disp: , Rfl: AMITIZA 24 mcg capsule, TK 1 C PO BID, Disp: , Rfl: mesalamine 0.375 gram 24 hr capsule, Ta ke 1.5 g by mouth daily., Disp: , Rfl: XIFAXAN 550 mg tablet, as needed., Disp: , Rfl: VICTOZA 3-PATRICK 0.6 mg/0.1 mL (18 mg/3 mL) injection, INJECT 1.8 MG UNDER THE SKIN DAILY, Disp: , Rfl: pantoprazole 40 mg EC table t, Take 1 tablet by mouth 2 (two) times daily., Disp: 60 tablet, Rfl: 5 Cholecalciferol, Vitamin D3 , 50,000 unit capsule, Take 1 capsule by mouth weekly., Disp: 4 capsule, Rfl: 1 mirtazapine 15 mg tablet, Take 15 mg by mouth a t bedtime., Disp: , Rfl: albuterol 90 mcg/actuation inhaler, Inhale 2 Puffs every 4 (four) hours as needed for Wheezing or Shortness of Breath., Disp: 8.5 g, Rfl: 0 Patient's Medications START taking these medications No [...] noon and 1 tablet in the evening. HYDRALAZINE 100 MG TABLET T humberto 1 tablet by mouth in the morning and 1 tablet at noon and 1 tablet in the evening. HYDROCHLOROTHIAZIDE 12.5 MG CAPSULE TAKE 1 CAPS [...] MOTEGRITY TABLET TK 1 T PO D [id number] TISONE OTIC SOLUTION INSTILL 4 DROPS TO [...] medications on file STOP taking these medications HUMULIN 70/30 U-100 INSULIN 100 UNIT/ML (70-30) SUSPENSION ADMINISTER 70 UNITS UNDER THE SKIN EVERY MORNING THEN ADMINISTER 60 UNITS UNDER THE SKIN EVERY EVENING PAST MEDICAL HISTORY Past Medical History: Diagnosis Date Anxiety Back pain CHF (congestive heart failure) COPD (chronic obstructive pulmonary disease) Depression Gout HTN (hypertension) Neuropathy bilateral LE TIA (transient ischemic attack) X 2 PAST SURGICAL HISTORY Past Surgical History: Procedure Laterality Date APPENDECTOMY CHOLECYSTECTOMY LAPAROSCOPIC GASTRIC SLEEVE (SHX) 08/2018 OTHER Gastric banding OTHER partial hysterectomy, c sec tion, surgery to shoulder and knee, lap band and it was removed, this sep 2017 had gastric sleeve PAST SOCIAL HISTORY Social History Socioeconomic History Marital status: Single Number of children: 1 Years of education: 8 Occupational History Occupation: Disabled Comment: SSDI Tobacco Use Smoking status: Former Packs/day: .5 Types: Cigarettes Smokeless tobacco: Never Tobacco comments: Started at 25- end at 44 Vaping Use Vaping Use: Never used Substance and Sexual Activity Alcohol use: No Drug use: No Sexual activity: Not Currently Partners: Male control/protection: Abstinence Social History Narrative 05/10/18 - disability, used to work for [employer] Still current disabled with SSDI -08/25/2019 MR Costa 05/14/2021 ; has 1 S on who lives with patient; 2 grandchildren also live with her - Anabela De La Garza RN Social Determinants of Health Financial Resource Strain: Low Risk (08/25/2019) Overall Financial Resource Strain (CARDIA) Difficulty of Paying Living Expenses: Not hard at all Food Insecurity: No Food Insecurity (08/25/2019) Hunger Vital Sign Worried About Running Out of Food in the Last Y ear: Never true Ran Out of Food in the Last Year: Never true Transportation Needs: Unknown (08/25/2019) PRAPARE - Transportation Lack of Transportation (Medical): No Physical Activity: Inactive (08/25/2019) Exercise Vital Sign Days of Exercise per Week: 0 days Minutes of Exercise per Session: 0 min Stress: Stress Concern Present (08/25/2019) [facility] of Occupational Health - Occu pational Stress Questionnaire Feeling of Stress : To some extent Social Connections: Socially Isolated ( 9) Social Connection and Isolation Panel [NHANES] Frequency of Communication with Friends and Fam ramses: Twice a week Frequency of Social Gatherings with Friends and Family: Never Attends Anglican Services: Never Active Member of Clubs or Organizations: No Attends Club or Organization Meetings: Never Marital Status: Intimate Partner Violence: Not At Risk (08/25/20 19) Humiliation, Afraid, Rape, and Kick questionnai re Fear of Current or Ex-Partner: No Emotionally Abused: No Physically Abused: No Sexually Abused: No PAST FAMILY HISTORY Family History Problem Relation Age of Onset Diabetes Other Coronary Heart Disease Mother Diabetes Mother Hypertension Mother Diabetes Father Kidney disease Father REVIEW OF SYSTEMS General: No headache or dizziness. No fever or c hills. Cardiovascular: No chest pain or palpitation Pulmonary: No shortness of breath or hemoptysis. GI: No abdominal pain, diarrhea, or vomiting. Urinary: No dysuria or hematuria Musculoskeletal: No joint pain or muscle aches. Skin: No rashes. Neurological: Positive for slurred speech and im balance Psychiatric: No depression PHYSICAL EXAMINATION Vitals: 06/17/23 1416 06/17/23 1510 06/17/23 1530 06/17 1600 BP: 130/74 135/82 130/80 (!) 144/84 Pulse: 70 69 75 79 Resp: 20 28 18 24 Temp: 36.6 ?C (97.8 ?F) TempSrc: SpO2: 93% 97% 90% 93% Weight: Height: General: awake, alert, no distress HEENT: NC, AT, anicteric sclera. Neck supple. Neck: no JVD no lymphadenopathy CV: RRR, normal S1 and S2 no MRG. Lungs: clear to auscultation bilaterally. No whe ezing, rales, or stridor Abdomen: soft, NT, ND, (+)BS Skin: no rashes Extremities: no clubbing, cyanosis, edema Neuro: Aox 3. Muscle strengt h on RUE and RLE 5/5 in distal and proximal muscles. Muscle strength on L UE and LLE, 4/5 in proximal muscles and 5/5 in distal muscles. Psych: normal affect Vitals: 06/17/23 1416 06/17/23 1510 06/17/23 1530 06/17 1600 BP: 130/74 135/82 130/80 (!) 144/84 Pulse: 70 69 75 79 Resp: 20 28 18 24 Temp: 36.6 ?C (97.8 ?F) TempSrc: SpO2: 93% 97% 90% 93% Weight: Height: LABS AND IMAGING Recent Results (from the past 24 hour(s)) Prothrombin Time / INR - Code Stroke Collection Time: 06/17/23 2:40 PM Result Value Ref Range PROTIME PATIENT 11.8 10.1 - 12.6 Seconds INR 1.0 aPTT - Code Stroke Collection Time: 06/17/23 2:40 PM Result Value Ref Range APTT Patient 31 26 - 36 Seconds CBC without Diff - Code Stroke Collection Time: 06/17/23 2:40 PM Result Value Ref Range WBC 9.12 4.30 - 11.10 10*3/?L RBC 4.81 3.93 - 5.25 10*6/?L HGB 14.9 11.6 - 15.0 g/dL HCT 45.6 (H) 35.7 - 45.2 % MCH 31.0 25.9 - 32.8 pg MCV 94.8 80.6 - 95.5 fL MCHC 32.7 31.6 - 35.1 g/dL PLT 215 166 - 358 10*3/?L MPV 10.8 9.5 - 12.9 fL RDW-CV 12.8 12.0 - 15.5 % RDW-SD 44.3 39.0 - 49.9 fL NRBC x10^3 <0.01 10*3/?L NRBC/100 WBC 0.0 0.0 - 10.0 /100 WBCs IPF % Troponin I - Code Stroke Collection Time: 06/17/23 2:40 PM Result Value Ref Range TROPONIN I 0.005 <=0.034 ng/mL Basic Metabolic Panel (NA, K , CL, CO2, Glucose, BUN, Creatinine, CA) - Code Stroke Collection Time: 06/17/23 2:40 PM Result Value Ref Range NA 139 135 - 145 mmol/L K 4.0 3.5 - 5.0 mmol/L CL 99 98 - 108 mmol/L CO2 TOTAL 31 23 - 31 mmol/L AGAP 9 2 - 16 BUN 13 7 - 23 mg/dL GLUCOSE 217 (H) 70 - 110 mg/dL CREATININE 0.62 0.50 - 1.04 mg/dL CALCIUM 9.1 8.6 - 10.6 mg/dL eGFR 99.6 mL/min/1.73m2 COVID-19 (ID NOW TESTING) Collection Time: 06/17/23 2:40 PM Specimen: NASOPHARYNGEAL SWAB Result Value Ref Range SARS-CoV-2 Rapid ID NOW Not Detected Not Detect ed N-TERMINAL PRO-BNP Collection Time: 06/17/23 2:40 PM Result Value Ref Range NT-proBNP 25 <=125 pg/mL POCT GLUCOSE (AUTOMATED) Collection Time: 06/17/23 3:08 PM Result Value Ref Range POCT GLU 198 (H) 70 - 110 mg/dL POCT Glucose (Age >30 Days) - Code Stroke Collection Time: 06/17/23 3:46 PM Result Value Ref Range POCT Glu (age>30days) 190 (A) 70 - 110 mg/dL Radiology CT ANGIOGRAM HEAD Result Date: 06/17/2023 Unremarkable CTA head and ne ck without vascular malformations, focal stenosis or significant atherosclerotic disease. Please note retropharyngeal course of common carotid arteries bilaterally. Prelimina ry Report Dictated by Reside nt: Reggie Bernard MD I, Sirena Murillo MD., have reviewed this study and agree with the above report. CT ANGIOGRAM NECK Result Date: 06/17/2023 Unremarkable CTA head and ne ck without vascular malformations, focal stenosis or significant atherosclerotic disease. Please note retropharyngeal course of common carotid arteries bilaterally. Prelimina ry Report Dictated by Reside nt: Reggie Bernard MD I, Sirena Murillo MD., have reviewed this study and agree with the above report. CT HEAD WO CONTRAST Result Date: 06/17/2023 No acute intracranial abnorm ality. Preliminary Report Dictated by Resident: Reggie Bernard MD I, Octavio Gerber MD., have reviewed this study and agree with the above report. ASSESSMENT: Maria De Jesus Acosta is a 58 year old female who presents with Blurred Vision (/) and Headache . Principal Problem: Left-sided weakness Active Problems: Morbid obesity with body mass index of 50 or hi gher Gastroesophageal reflux disease Type 2 diabetes mellitus wi thout complication, with long-term current use of insulin Hyperlipidemia, unspecified hyperlipidemia type Chronic bilateral low back pain with bilateral sciatica Essential hypertension SOB (shortness of breath) Wheezing Rule out CVA Plan: 06/17/2023 Notes, events, labs, and joy ging reviewed. Home medications reviewed and reconciled as indicated. - Admit to medical floor. -Check brain MRI. Consult PT/OT/PLATE CORRECTOR/neurology. C heck TTE. - Out of window for permissi ve hypertension. Restart home blood pressure medications. Monitor vital signs and telemetry. - Patient reports she takes over 300 units of insulin at home (U-500 100 units with each meal plus sliding scale). Start Lantus and lispro at reduced dose. Add SSI. Monitor blood glucose and titrate accordingly. - Restart home meds. - Check a.m. labs, replete e lectrolytes if needed. Monitor kidney function. Transfuse PRBC if hemoglobin less than 7. -As needed pain and nausea medications. Supporti ve care. Discussed the case with: [ ] career consultant [x ] nursing staff [x ] patient/family [x] ED provider Pastora Figueroa MD [facility] team This note was created using a voice-recognition inoculator system. Incorrect words, phrases, or punctuation may have been missed during proofreading. Please interpret accordingly. For this reason, wo rding in this document shoul d be considered in the proper context and not strictly verbatim. If, when reviewing the document, an error is discovered, please contact Dr. Figueroa and [facility] office. Notes Date/Time Note Provider Source 2023-06-21 Formatting of this note is different fro m the original. Ann Marie De Souza RN [facility] 08:18:49-00:00 TRANSITIONAL CARE MANAGEMENT ASSESSMENT 06/21/2023 Maria De Jesus Acosta [id number] Maria De Jesus Acosta is a 58 year old /White female was admitted on 06/17/23 to [facility] ([facility] [place] [address]. She was discharged on 06/19/23 with discharge disposition of HR- Routine Discharge. Admitting Physician: Pastora Figueroa Discharge Diagnosis: Sob (Shortness of Breath) Wheezing Essential Hypertension Gastroesophageal Reflux Disease Type 2 Diabetes Mellitus Wit hout Complication, With Long-Term Current Use of Insulin Hyperlipidemia, Unspecified Hyperlipidemia Type Chronic Bilateral Low Back Pain With Bilateral S ciatica Morbid Obesity With Body Mass Index of 50 Or Hig her Vertigo Imbalance Linked Episodes Type: Episode: Status: Noted: Resolved: Last upd ate: Updated by: TRANSITION OF CARE TCM Active 06/21/2023 8:17 AM Ann Marie De Souza RN Comments: TCM Xqs-neir-oy-face outreach documentation: Discharge Assessment Chart Assessed: 06/21/23 TCM Outreach Completed: 06/21/23 Do you have a few minutes to speak with me about how you are doing at home?: Yes (Pt reports doing "Okay". Denies any questions/concerns at this time.) Discharge Instructions Do you understand your at-home instructions?: Ye s Medications Have you filled your prescri ptions and do you have them in your home? 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 Who chino l be taking you?: Yes (son) Home Health Assistance Has the home health nurse contacted you since yo u've been home?: N/A Survey - Recognition Is there anything you would like to share about your recent hospitalization, or anyone you would like to recognize?: No Do you have any suggestions for improvement?: No Do you have any other questions or concerns at t his time?: No Future Appointments: Future Appointments Provider Department Dept Phone 08/09/2023 9:45 AM Sourav Vargas MD [facility] [phone] Electronically signed by Ann Marie De Souza RN at 8:20 AM CDT 2023-06-19 [facility] 16:12:37-00:00 Patient to be discharge from unit, waiting for wheelchair van/transportation. No distress noted. AVS printed and all Rx's was sent to pharmacy. Discussed discharge instructions with the patient, verbalized understanding. 2023-06-19 [facility] 16:11:55-00:00 CM notified, patient needs t ransportation with oxygen for discharge. 2023-06-19 [facility] 15:43:48-00:00 O2 Saturation at REST on Room Air = 92% O2 Saturation at REST on 3 LPM of Oxygen = 96% If room air Saturations on R oom Air are 88% or below STOP as no further testing is needed EXERTION TEST O2 Saturation at Rest on Room Air = 88% O2 Saturation being Exerted on Room Air = 86% Patient state she has oxygen at home but did not bring it with her. 2023-06-19 [facility] 13:19:46-00:00 Problem: Respiratory Function - Impaired Goal: Able to cough effectively Outcome: Adequate for discharge Goal: Adequate oxygenation Outcome: Adequate for discharge Goal: Adequate work of breathing Outcome: Adequate for discharge Problem: Pain Goal: Control of pain at or below patient's docu mented comfort goal Outcome: Adequate for discharge Goal: Reduction in pain sensation Outcome: Adequate for discharge Problem: Glucose control Goal: Glucose level within specified parameters Outcome: Adequate for discharge Problem: Cardiac Output - Decreased Goal: Cardiac output within specified parameters Outcome: Adequate for discharge Goal: Absence of signs and symptoms of decreased cardiac output Outcome: Adequate for discharge [facility] 2023-06-19 [facility] 08:00:00-00:00 Received patient in bed aox4 . No distress noted, family at bedside. POC discussed with patient. Call light in reach. Bed in low position. T 2023-06-19 Formatting of this note might be differe nt from the original. Kristian Jama [facility] 00:12:44-00:00 Eddie GARBER Problem: Respiratory Function - Impaired Goal: Able to cough effectively Outcome: Progressing as expected Goal: Adequate oxygenation Outcome: Progressing as expected Goal: Adequate work of breathing Outcome: Progressing as expected Problem: Pain Goal: Control of pain at or below patient's docu mented comfort goal Outcome: Progressing as expected Goal: Reduction in pain sensation Outcome: Progressing as expected Problem: Glucose control Goal: Glucose level within specified parameters Outcome: Progressing as expected Problem: Cardiac Output - Decreased Goal: Cardiac output within specified parameters Outcome: Progressing as expected Goal: Absence of signs and symptoms of decreased cardiac output Outcome: Progressing as expected [facility] 2023-06-18 [facility] 11:56:38-00:00 Problem: Respiratory Function - Impaired Goal: Able to cough effectively Outcome: Progressing as expected Goal: Adequate oxygenation Outcome: Progressing as expected Goal: Adequate work of breathing Outcome: Progressing as expected [facility] 2023-06-18 [facility] 08:00:00-00:00 Received patient in bed aox4 . No distress noted, no family at bedside. POC discussed with patient. Call light in reach. Bed in low position. T 2023-06-18 [facility] 02:28:21-00:00 Problem: Respiratory Function - Impaired Goal: Able to cough effectively Outcome: Progressing as expected Goal: Adequate oxygenation Outcome: Progressing as expected Goal: Adequate work of breathing Outcome: Progressing as expected T 2023-06-17 [facility] 18:14:25-00:00 Patient arrived to unit from ED via stretcher. Patient aox4. No distress noted, family at bedside. POC discussed with patient. Call light in reach. Bed in low position. MD notified of patient's arrival to floor. T 2023-06-17 Formatting of this note might be differe nt from the original. Anthony Troncoso RN [facility] 17:06:56-00:00 Nurse Report Report given to Lorena GARBER 323. Chief complaint, assessment findings, infusion verify and orders reviewed. Plan of care discussed at bedside with patient and both nurses. Patient/family members verbalized understanding. Anthony Troncoso RN T 2023-06-17 [facility] 16:50:38-00:00 Care Management Social Functional Assessment Patient Name: Maria De Jesus Laquita Acosta Age: [age] year old Sex: female Patient's Previous Admission Date at [facility]: 01/14 Pt will resume sn/pt with an [facility] or possibly will need irf/snf placement. Pt will continue with her pcp nereida vargas. Pt will have her son transport her back home when discharged. Current diagnosis and co-morbidities: Left-sided weakness [R53.1] Readmission Questions: Was patient discharged from any acute care hospital within the last 30 days: No Alcohol Use Screening (AUDIT-C) Q1: How often do you have a drink containing alc ohol?: Never SCORE: 1 Did patient elect to have resources provided: No Actions taken: Provided support Social Functional Assessment: Mental Status: Alert & Oriented to Person,Place & Time Information given by: Self Patient's support system and home care specialist: Self;Ot her Name and phone number of josefina delacruz caregiver/support system: delroy acosta - brother [phone], carola higuera - son [phone] MPOA: No Living Arrangement: Home: single story Address of living arrangement : [address] [place] [id number] In the last 12 months, was t here a time when you were not able to pay the mortgage or rent on time?: No In the last 12 months, how many places have you lived?: 1 In the last 12 months, was t here a time when you did not have a steady place to sleep or slept in a prison (including now)?: No Persons living in home: Self;Child Names & numbers of persons l iving in home: carola higuera - son [phone] and two grandchildren Are you , , di vorced, , never , or living with a partner?: Never In a typical week, how many times do you talk on the phone with family, friends, or neighbors?: More than three times a week Baseline functional assessment-ADLS: Requires mi nimal to moderate assistance Baseline functional status- ambulation: Requires minimal to moderate assistance (uses cane, rollator, wc) Functional status-baseline p ersonal care: Requires minimal to moderate assistance Baseline functional status- driving: Dependent Baseline functional status- grocery shopping: De pendent Functional status-baseline housekeeping: Depende nt Functional status-baseline meal prep: Dependent Current functional status same as prior: Yes On average, how many days pe r week do you engage in moderate to strenuous exercise (like a brisk walk)?: 6 days On average, how many minutes do you engage in ex ercise at this level?: 20 min Do you have a PCP?: Yes Name of PCP: NEREIDA VARGAS Home Health Care Agency: Yes Name of Home Health Agency: [address] [place] [address] (Ph) [phone] (F) [phone] (sn/pt) Previous or current Home Health Care Agency: [facility] Provider Services: Yes Provider Agency: mon - sat 5hrs daily, Provider agency days and hours: 30 hrs per week DME Company: Yes Name of DME company: ([address] ???) Equipment: Cane;Wheelchair: Manual;Rollator;O2: LPM;O2:Portable tank available;CPAP;Nebulizer Hemodialysis: No Community resources utilized: SSA/SSI/Medicaid Funding Resources: Medicare A & B;Medicaid Prescription coverage plan: Self Pay How hard is it for you to pa y for the very basics like food, housing, medical care, and heating?: Not hard at all Within the past 12 months, y ou worried that your food would run out before you got the money to buy more.: Never true Within the past 12 months, t he food you bought just didn't last and you didn't have money to get more.: Never true Anticipated services prior t o disharge: (P) Continue Medical Eval;Lab Values;Reassess prior to discharge;RANDAL/TTE;PT/OT/ST;Consult;MRI/CT/US Expected mode of discharge transportation: Famil y Name and phone number of the friend or family member picking up the patient: carola higuera - son [phone] In the past 12 months, has l ack of transportation kept you from medical appointments or from getting medications?: No In the past 12 months, has l ack of transportation kept you from meetings, work, or from getting things needed for daily living?: No Additional info required for discharge planning: Pending medical evaluation Recommended discharge plan: (P) Update/Resume HH orders;New placement ([facility] or irf/snf) SFA Complete: Social Functional Assessment complete: Yes Role of Care Management explained. Keith HECTOR-IPR ED Test Eng, Care Management 2023-06-17 Formatting of this note might be differe nt from the original. Tex Mendez RN [facility] 16:01:28-00:00 Placed pt on 3L nasal cannula, satting 8 8% RA, Notified Sammi GRIFFIN Electronically signed by Tex Mendez RN at 4:01 PM CDT 2023-06-17 [facility] 15:10:43-00:[address] 2023-06-17 [facility] 15:00:00-00:00 Nurse Report Report given to Tex GARBER. Ch ief complaint, assessment findings, infusion verify and orders reviewed. Plan of care discussed at bedside with patient and both nurses. Patient/family members verbalized understanding. Sima Kim RN 2023-06-17 [facility] 15:00:00-00:00 Verified name, , armband with patient. Patient presents to the EC d/t BIB EMS d/t blurred vision, BADILLO, ataxic gait x 3 weeks. Pt denies, CP, SOB, numbness/tingling. Pt aaox4, vss, in nad, abc's intact , speech clear. Respirations even and unlabored. Connected to bus monitor at 69 saturating at 98% on RA. Pending further evaluation. 2023-06-17 [facility] 14:13:29-00:00 Pt reports having blurred vi momo, headache, ataxic gait and AMS for the past 3 weeks. Pt has noticed she is having some weakness and loss of feeling to the left side of the body. Pt is no long able to walk with a stable gait as she used to. Pmhx: Pt Aox4, color wnl, resp stefanie n and unlabored, NAD, weakness to the left side of the body 2023-06-17 Formatting of this note might be differe nt from the original. Sima Kim [facility] 13:42:51-00:00 Maria De Jesus Acosta is a 58 year old female coming from clinic via [facility] 5 RN Subjective: Per EMS pt compl aining of blurred vision, BADILLO and ataxic gait for 3 weeks. Pt denies N/V/D/fever/cough/SOB. Objective: Pt is alert and oriented x4. Respirat ions even and unlabored. NAD. 2023-06-07 Formatting of this note is different from the or iginal. [facility] 07:39:26-00:00 Message from [place]: Refills have been requested for the following me dications: HYDROcodone-acetaminophen 10-325 mg tablet [Ant agus Vargas] [id number] [place] [address] [address] [email or web address] Delivery method: Pickup Recent Visits Date Type Provider Dept 04/08/23 Office Visit Nereida Vargas MD [facility] 10/21/22 Office Visit Nereida Vargas MD [facility] 09/21/22 Office Visit Nereida Vargas MD [facility] 08/25/22 Office Visit Blanche Osorio FNP [facility] 03/18/22 Office Visit Nereida Vargas MD [facility] Showing recent visits within past 540 days with a meds authorizing provider and meeting all other requirements Future Appointments Date Type Provider Dept 08/09/23 Appointment Nereida Vargas MD [facility] Showing future appointments within next 150 days with a meds authorizing provider and meeting all other requirements 2023-05-27 [facility] 00:24:59-00:00 Pt discharged home. Given al l education and information regarding pain management; follow up importance; and s/s of worsening condition. Pt verbalized understanding. Alert and ambulatory to pov with vss. Electronically signed by Elmira Grimaldo RN at 0 05/27/2023 12:26 AM CDT 2023-05-26 Formatting of this note might be differe nt from the original. Isa Obando [facility] 23:03:23-00:00 Report given to JCARLOS Funk RN Electronically signed by Isa Obando RN a t 05/26/2023 11:03 PM CDT 2023-05-26 [facility] 21:00:17-00:00 Pt to ed with family. Alert and ambulatory with cane. Vss. C/o cp and sob with onset of approx 2 days. Nitro taken x1 fire prevention captain Electronically signed by Elmira Grimaldo RN at 0 05/26/2023 9:03 PM CDT 2023-05-26 Formatting of this note is different from the or iginal. [facility] 20:51:00-00:00 [facility] Emergency Department Note Patient Name: Maria De Jesus Acosta Date of : 1965 58 year old female Treatment Room: TX3/TX3 Primary Care Physician: Nereida Vargas Patient Escorted by: Self [9] Mode of Arrival: Personal means [1] EMS Treatment Prior to ED Arrival: [employer] treatment: None Travel and Exposure Screening: Symptoms [...] had a recent cardiac evaluation by her Salvationist, Dr Miller and reportedly negative per pt. Has also had a RUE DVT in March from PICC Line insertion that was treated wit h anticoagulation and now on Eliquis. Pt has hx of "nasal cancer" and is currently being treated with Radiation and Chemotx at [facility] History provided by: Relative and patient night baker used: No Chest Pain Pain location: Substernal [...] wn - See comments Told by anesthesiologist th at she should add to her allergies following a procedure [place] Nausea and/or Vomiting And Kiwi And Kiwi Kiwi Unknown - See comments and Other - See com chet Regkiran [Metoclopramide Hcl] Unknown - See comme nts Told by anesthesiologist th at she should add to her allergies following a procedure [place] Juice Nausea and/or Vomiting Past Social History: [...] Pulse 05/26/232100 87 Resp 05/26/232100 20 Temp 05/26/232150 36.1 ?C (96.9 ?F) Temp source 05/26/232100 [...] PULMONARY ANGIOGRAM Final Result Ordering physician: DESTINEY ABBASI Indication: Chest pain, short of breath for [...] the visualized proximal stomach. RL: 460 AFC: [id number] CHEST 1 VW Final Result Ordering physician: DESTINEY ABBASI Indication: Chest pain Comparison: None Technical quality: [...] small pleural effusion. END REPORT RL: 460 AFC: [id number] Lab Results: Lab Results CBC WITH DIFF [...] 1.88 - 7.09 10*3/uL COMP. METABOLIC PANEL (30013) - Abnormal NA 139 135 - 145 [...] ANGIOGRAM CBC WITH DIFF COMP. METABOLIC PANEL (66506) TROPONIN I Prothrombin Time / INR N-TERMINAL PRO-BNP Orders Placed This Encounter Medications morpHINE (4 mg/mL) injection 4 mg aspirin chewable tablet 324 mg ondansetron (ZOFRAN (PF)) injection 4 mg iopamidol (ISOVUE 370-500 mL) injection 75 mL First Provider Eval: ED Events Date/Time Event User Comments 05/26/232107 Medical Screening Begins DESTINEY CRUMP -- 05/26/232107 First Provider Evaluation DESTINEY ABBASI MD -- ED COURSE Diagnosis/Impression as of [...] i njury Details: ED evaluationand management as documen kaylie Pt will be re-evaluated by her Salvationist, Dr Miller this morning Dyspnea, unspecified type: [...] as: NSR Rate 85 BPM Norml axiss Contract Administration Specialist ST elevation or Depression Discussion of management or test interpretation with external provider(s): Discussed presentation, laboratory EKG and imaging study result with pt's own key holder Dr Miller who will see pt in [...] METOPROLOL TARTRATE 100 MG TABLET TAKE 1 TABLE T BY MOUTH TWICE DAILY MIRTAZAPINE 15 MG TABLET Take 15 mg by mouth at bedtime. MOTEGRITY TABLET TK 1 T PO D PDBAGYTE-HLTONVCDT-QMFAMAET TISONE OTIC SOLUTION INSTILL 4 DROPS TO [...] TRUEPLUS INSULIN 1 ML 30 GAUGE X 16 SYRG USE TWICE DAILY VICTOZA 3-PATRICK 0.6 [...] file Follow-up: Contact information for follow-up Nereida aVrgas MD Specialty: FM-FAMILY MEDICINE Relationship: PCP - General [address] [facility] [address] Naa Miller MD Specialty: IM-CARDIOVASCULAR DISEASE [address] [address] [facility] [address] Electronically signed by: Destiney Abbasi MD 05/27/[address] [facility] [facility] 2020-08-23 [id number] [facility] 08:52:00-00:00 [facility] [address] [place] [address] PATIENT NAME: MARIA DE JESUS ACOSTA ADMIT DATE: 0 ACCOUNT NO: [id number] ROOM NO: AGE: 55 REPORT TYPE: OPERATIVE REPORT SEX: F ADMITTING PHYSICIAN: ATTENDING PHYSICIAN: Tapan Harper MD OPERATION DATE: 08/23/2020 PREOPERATIVE DIAGNOSES: Coli tis, colonic ulceration surveillance ____ progress. POSTOPERATIVE DIAGNOSIS: See below. PROCEDURES: 1. Colonoscopy. 2. Segmental biopsy for colon x 3 biopsy bottle. SURGEON: Tapan Harper MD TOPOGRAPHICAL SURVEYOR: ANESTHESIA: Administered by department of anesth esia. INDICATION: Colitis, colonic ulceration surveill ance ____ progress. COMPLEXITY: Moderate. TOLERANCE TO ANESTHESIA: Excellent. PREP: [place] prep right 2/3, mid 2/3, left 2/3, [...] resolved. PATIENT NAME: MARIA DE JESUS ACOSTA [id number] Having done the above procedure and having done all the segmental biopsies on way back and as much visuali zation as possible, the colonoscope and colonoscopic accessories were removed. Th patient's rectal area cleaned out in a respectful manner. The patient has been sent in excellent c ondition to postoperative recovery, from there to home. IMPRESSION: Colitis. Scattered colonic ulcers badillo ve improved; however, the patient still has the disease. PLAN: 1. Await biopsy results. 2. Continue on the same medicine. 3. We will check our chart. If she did not have any Crohn's disease workup, this will be done including small bowel capsule endoscopy. COMPLICATIONS: None. The patient tolerated the procedure well. DISPOSITION: As above. Dictated By: Tapan Harper MD WT: OP:L.RENETTA/CHRISTOPHERI/NTS Conf#: [id number]/DID#: [id number] Authenticated by Tapan Harper MD On 08/30/2020 08:30:15 AM at 0830 PATIENT NAME: MARIA DE JESUS ACOSTA 9314 2020-08-22 [id number] [facility] 10:59:00-00:00 [facility] [id number] [place] [id number] PATIENT NAME: MARIA DE JESUS ACOSTA ADMIT DATE: 0 ACCOUNT NO: [id number] ROOM NO: AGE: 55 REPORT TYPE: eELECTROCARDIOGRAM SEX: F ADMITTING PHYSICIAN: ATTENDING PHYSICIAN: Tapan Harper MD Order: [id number] Test Reason : PRE OP Test Date/Time [...] PM Referred By: Tapan Harper Confirmed by:JOHNATHON HOLT MD at 2227 PATIENT NAME: MARIA DE JESUS ACOSTA 9314 2019-12-11 [facility] 10:59:00-00:00 [facility] ([facility]) Post Anesthesia Evaluation REPORT#:[id number] REPORT STATUS: Signed DATE:12/11/19 TIME:1059 PATIENT: MARIA DE JESUS ACOSTA UNIT #: [id number] ROOM/BED: : 67 AGE: 54 SEX: F ATTEND: Leticia Kaur MD ADM AUTHOR: Gini Nieves MD * ALL edits or amendments must be made on the [employer]/computer document * General Post-op: post surgery rounds [...] Room air 12/11 945 O2 Flow Rate [id number] 12/11 945 Pulse 79 12/11 945 Resp [...] MD on 12/02 at 1100 RPT #: [id number] END OF REPORT 2019-12-11 [id number] [facility] 07:49:00-00:00 [facility] [address] [place] [address] PATIENT NAME: MARIA DE JESUS ACOSTA ADMIT DATE: 0 ACCOUNT NO: [id number] ROOM NO: AGE: 54 REPORT TYPE: OPERATIVE REPORT SEX: F ADMITTING PHYSICIAN: ATTENDING PHYSICIAN: Zacarias Kaur MD OPERATION DATE: 12/11/2019 PREOPERATIVE DIAGNOSIS: POSTOPERATIVE DIAGNOSIS: PROCEDURES: 1. EGD. 2. Biopsy from gastric body and antrum. 3. Biopsy from distal esophagus. SURGEON: Tapan Harper MD TOPOGRAPHICAL SURVEYOR: ANESTHESIA: Anesthesia by departmental anesthesi a. INDICATION [...] above. Dictated By: Tapan Harper MD WT: OP:L.RENETTA/HOMERO/NASIR Conf#: [id number]/DID#: [id number] Authenticated by Tapan Harper MD On 12/14/2019 02:52:57 PM at 1453 PATIENT NAME: MARIA DE JESUS ACOSTA 1832 2015-10-24 CT SCAN OF THE [...] Colonic diverticulosis. 4. Arterial vascular calcifications. Please ergan elate with risk factors. SL: 2015-10-24 CT [...] ABDOMEN AND PELVIS WITH CONTRAST: MORRIS BONE [place] 11:25:00-00:00 DISCUSSION: The study is a preoperative [...] Colonic diverticulosis. 4. Arterial vascular calcifications. Please reagn elate with risk factors. SL: 2015-10-24 CT [...] OF THE ABDOMEN AND PELVIS WITH CONTRAST: MORRSI SMITHA [place] 11:25:00-00:00 DISCUSSION: The study is a [...] ABDOMEN AND PELVIS WITH CONTRAST: MORRIS BONE [place] 11:25:00-00:00 DISCUSSION: The study is a preoperative [...] THE ABDOMEN AND PELVIS WITH CONTRAST: SMITHA Tavarez 11:25:00-00:00 DISCUSSION: The study is a [...]
[2023-07-01 21:17] LABS: Absolute Lymphocytes (CBC) 2.3 K/uL (0.7-4.9); Hematocrit 44.5 % (36.0-45.0); Lymphocytes % 34.5 % (15.3-44.8); MCV 92.7 fL (80-100); MPV 8.3 fL (7.6-11.3); Platelets 193 thou/uL (152-406); RBC Red Blood Cell Count 4.81 M/uL (3.86-4.86)
[2023-07-01 21:29] LABS: Protime INR 1.15
[2023-07-01 21:30] LABS: SARS-CoV-2 Antigen Rapid Res Negative (Negative)
[2023-07-01 21:40] LABS: Albumin 3.5 g/dL (3.4-5.0); Bilirubin Total 0.5 mg/dL (0.2-1.0); Magnesium 1.5 mg/dL (1.6-2.4); Potassium 3.4 mEq/L (3.5-5.1); Protein, Total 7.4 g/dL (6.4-8.2); Troponin High Sensitivity 7.2 pg/mL (<58.9)
--- NOTE | 2023-07-01 21:52 | RAD REPORT ---
EXAM DESCRIPTION: RAD - Hip Left 2 View - 07/01/2023 9:19 pm CLINICAL HISTORY: PAIN COMPARISON: No comparisons TECHNIQUE: Left hip, AP and frogleg views of the left hip. FINDINGS: There is no fracture or dislocation. Hmyz-in-mvgfqhaf left hip joint degenerative changes. On the penetration somewhat limits evaluation. Residual contrast seen in the bladder. No acute or de structive bony process seen. IMPRESSION: No acute findings of the left hip.
[2023-07-01] MEDS ORDERED: ONDANSETRON 4 MG/2 ML VIAL ONE (21:56)
[2023-07-01] MEDS ORDERED: MAGNESIUM SULFATE 1 gm IVPB 1 GM/100 ML BAG IV ONE (22:31)
--- NOTE | 2023-07-01 23:04 | ER ---
Nurse's Notes [facility] Name: Maria De Jesus Acosta Age: 58 yrs Sex: Female : 1965 Arrival Date: 07/01/2023 Time: 18:29 Bed 2 Private MD: Diagnosis: Abdominal pain, Generalized;Noninfective gastroenteritis and colitis, unspecified Presentation: 07/01 18:38 Chief complaint: Patient states: she has been feeling short of breath with left ap3 side/hip pain that she rates a 7/10 on the pain scale. Coronavirus screen: At this time, the client does not indicate any symptoms associated with coronavirus-19. Ebola Screen: No symptoms or risks identified at this time. Initial Sepsis Screen: Does the patient meet any 2 criteria? No. Patient's initial sepsis screen is negative. Risk Assessment: Do you want to hurt yourself or someone else? Patient reports no desire to harm self or others. Onset of symptoms was June 30, 2023. 18:38 Method Of Arrival: Wheelchair ap3 18:39 Initial Sepsis Screen: Does the patient have a suspected source of infection? No. ap3 Patient's initial sepsis screen is negative. 18:39 Acuity: EMERALD 3 ap3 Triage Assessment: 18:40 General: Appears in no apparent distress. Behavior is calm, cooperative, appropriate ap3 for age. Pain: Complains of pain in left hip Pain currently is 7 out of 10 on a pain scale. Neuro: Level of Consciousness is awake, alert, obeys commands, Oriented to person, place, time, situation. Cardiovascular: Patient's skin is warm and dry. Respiratory: Reports shortness of breath Airway is patent Respiratory effort is even, unlabored, Respiratory pattern is regular, symmetrical, Onset: The symptoms/episode began/occurred yesterday. Respiratory: the patient has mild shortness of breath. GI: Reports nausea, vomiting. Historical: - Allergies: 18:39 Doxycycline; ap3 18:39 kiwi; ap3 18:39 orange juice; ap3 18:39 Reglan; ap3 18:39 metoclopramide HCl; ap3 - PMHx: 18:39 Asthma; CHF; COPD; Crohn's; Diabetes - NIDDM; Hypertension; Nasal cancer; ap3 - PSHx: 18:39 Appendectomy; Cholecystectomy; Ligation of fallopian tube; partial hysterectomy; ap3 Shoulder; - Immunization history:: Client reports receiving the 2nd dose of the Covid vaccine. - Social history:: Smoking status: unknown. Screenin:41 Abuse screen: Denies threats or abuse. Nutritional screening: No deficits noted. ap3 Tuberculosis screening: No symptoms or risk factors identified. 20:49 [facility] ED Fall Risk Assessment (Adult) History of falling in the last 3 months, vc1 including since admission No falls in past 3 months (0 pts) Confusion or Disorientation No (0 pts) Intoxicated or Sedated No (0 pts) Impaired Gait Yes (1 pt) Mobility Assist Device Used Yes (1 pt) Altered Elimination No (0 pt) Score/Fall Risk Level 0 - 2 = Low Risk Oriented to surroundings, Maintained a safe environment, Educated pt \T\ family on fall prevention, incl call for assistance when getting out of bed. Assessment: 20:48 Reassessment: Patient wheeled to room by QIAN Bernabe. vc1 21:24 General: Appears in no apparent distress. comfortable, Behavior is calm, cooperative. lg3 Pain: Complains of pain in left hip. Pain:. Neuro: No deficits noted. Seymour Agitation-Sedation Scale (RASS): 0 - Alert and Calm Level of Consciousness is awake, alert, obeys commands, Oriented to person, place, time, situation. Cardiovascular: No deficits noted. Rhythm is sinus rhythm. Respiratory: No deficits noted. Airway is patent Respiratory effort is even, unlabored, Respiratory pattern is regular, symmetrical, Breath sounds are clear bilaterally. GI: No deficits noted. Abdomen is round non-distended, obese, Reports nausea. : No deficits noted. No signs and/or symptoms were reported regarding the genitourinary system. EENT: No deficits noted. No signs and/or symptoms were reported regarding the EENT system. Derm: No deficits noted. No signs and/or symptoms reported regarding the dermatologic system. Skin is intact, is healthy with good turgor, Skin is dry, Skin is normal, Skin temperature is warm. Musculoskeletal: No deficits noted. Circulation, motion, and sensation intact. Range of motion: intact in all extremities, Reports pain in left hip. 22:30 Reassessment: Patient appears in no apparent distress at this time. No changes from lg3 previously documented assessment. Patient and/or family updated on plan of care and expected duration. Pain level reassessed. Patient is alert, oriented x 3, equal unlabored respirations, skin warm/dry/pink. 23:37 Reassessment: Patient appears in no apparent distress at this time. No changes from lg3 previously documented assessment. Patient and/or family updated on plan of care and expected duration. Pain level reassessed. Patient is alert, oriented x 3, equal unlabored respirations, skin warm/dry/pink. Patient states feeling better. Vital Signs: 18:38 Pulse 85; Resp 18; Temp 97.9; Weight 142.43 kg; Height 5 ft. 3 in. ; Pain 7/10; ap3 18:39 BP 106 / 76; Pulse Ox 94% ; ap3 20:49 BP 114 / 80; Pulse 84; Resp 18; Pulse Ox 96% ; vc1 22:30 BP 123 / 92; Pulse 90; Resp 16 S; Pulse Ox 96% on R/A; lg3 23:37 BP 135 / 82; Pulse 81; Resp 17 S; Pulse Ox 96% on R/A; lg3 18:38 Body Mass Index 55.62 (142.43 kg, 160.02 cm) ap3 18:38 Pain Scale: Adult ap3 ED Course: 18:31 Patient arrived in ED. ts1 18:32 June Christian PA-C is PHCP. sb4 18:32 Jaspreet Rhoades DO is Attending Physician. sb4 18:40 Triage completed. ap3 18:41 Arm band placed on right wrist. ap3 19:30 CT Abd/Pelvis - IV Contrast Only In Process Unspecified. EDMS 19:42 XRAY CXR (1 view) In Process Unspecified. EDMS 20:30 Called Pt for room, no response, pt left ED. Called Pt cell phone and advised pt to rv1 return to remove her IV or PD would have to be called. Pt stated she would return. 20:49 Pt returned, placed in room. rv1 20:50 Patient has correct armband on for positive identification. Bed in low position. Call vc1 light in reach. Client placed on continuous cardiac and pulse oximetry monitoring. NIBP monitoring applied. 20:58 Inserted saline lock: 22 gauge in right antecubital area, using aseptic technique. lg3 21:11 Magnesium Sent. cg3 21:11 NT PRO-BNP Sent. cg3 21:11 PT-INR Sent. cg3 21:11 Ptt, Activated Sent. cg3 21:11 Troponin HS Sent. cg3 21:11 Flu Sent. cg3 21:11 SARS RAPID Sent. cg3 21:11 CBC with Diff Sent. cg3 21:11 CMP Sent. cg3 21:19 Blood Culture Adult (2) Sent. lg3 21:19 Magnesium Sent. lg3 21:19 NT PRO-BNP Sent. lg3 21:19 PT-INR Sent. lg3 21:20 Ptt, Activated Sent. lg3 21:20 Troponin HS Sent. lg3 21:20 Flu Sent. lg3 21:20 SARS RAPID Sent. lg3 21:20 CBC with Diff Sent. lg3 21:20 CMP Sent. lg3 21:20 Lipase Sent. lg3 21:21 Hip Left 2 View XRAY In Process Unspecified. EDMS 21:21 Ginna Valenzuela, RN is Primary Nurse. lg3 21:24 Door closed. Noise minimized. Warm blanket given. lg3 21:24 Patient maintains SpO2 saturation greater than 95% on room air. lg3 23:41 No provider procedures requiring assistance completed. IV discontinued, intact, pf1 bleeding controlled, No redness/swelling at site. Pressure dressing applied. 23:42 Provided Education on: viral gastroenteritis education . pf1 Administered Medications: 21:57 Drug: Ondansetron IVP 4 mg Route: IVP; Site: right antecubital; lg3 23:36 Follow up: Response: No adverse reaction lg3 22:31 Drug: Magnesium Sulfate IVPB 1 grams Route: IVPB; Infused Over: 1 hrs; Site: right lg3 antecubital; 23:35 Follow up: Response: No adverse reaction; IV Status: Completed infusion; IV Intake: lg3 100ml 23:23 Drug: fentaNYL (PF) IVP 50 mcg Route: IVP; Site: right antecubital; vc1 23:35 Follow up: Response: No adverse reaction; Marked relief of symptoms lg3 Medication: 18:41 VIS not applicable for this client. ap3 Intake: 23:35 IV: 100ml; Total: 100ml. lg3 Outcome: 23:04 Discharge ordered by . sb4 23:42 Discharged to home via wheelchair. pf1 23:42 Condition: improved 23:42 Discharge instructions given to patient, Instructed on discharge instructions, follow up and referral plans. Demonstrated understanding of instructions, follow-up care. 23:43 Patient left the ED. pf1 Signatures: Dispatcher [employer] Pham Saenz, RN RN ap3 Dayana Kay kj1 Ginna Valenzuela, RN RN lg3 Brigitte Perez RN RN vc1 June Christian, PA-C PADemi sb4 Jacquelin Ambrosio RN RN pf1 Kim Jackson rv1 Diana Chsae PAS PAS ts1 Asuncion Damico cg3 Corrections: (The following items were deleted from the chart) 20:40 20:30 Called Pt for room, no response, pt left ED. Called Pt cell phone and advised pt rv1 to return to remove her IV or PD would have to be called. Pt stated she would return. kj1
--- NOTE | 2023-07-01 23:04 | EDPHYS ---
Physician Documentation [facility] Name: Maria De Jesus Acosta Age: 58 yrs Sex: Female : 1965 Arrival Date: 07/01/2023 Time: 18:29 Bed 2 Private MD: ED Physician Jaspreet Rhoades HPI: 07/02 01:53 This 58 yrs old Female presents to ER via Wheelchair with complaints of sb4 Shortness Of Breath. 01:53 The patient has shortness of breath at rest. Onset: The symptoms/episode began/occurred sb4 at an unknown time. 01:54 Duration: The symptoms are continuous. The patient's shortness of breath has no sb4 apparent modifying factors, is aggravated by nothing, is alleviated by nothing. Associated signs and symptoms: Pertinent positives: vomiting, Pertinent negatives: chest pain, non-productive cough, productive cough, fever. The patient has experienced similar episodes in the past, chronically. Historical: - Allergies: 07/01 18:39 Doxycycline; ap3 18:39 kiwi; ap3 18:39 orange juice; ap3 18:39 Reglan; ap3 18:39 metoclopramide HCl; ap3 - PMHx: 18:39 Asthma; CHF; COPD; Crohn's; Diabetes - NIDDM; Hypertension; Nasal cancer; ap3 - PSHx: 18:39 Appendectomy; Cholecystectomy; Ligation of fallopian tube; partial hysterectomy; ap3 Shoulder; - Immunization history:: Client reports receiving the 2nd dose of the Covid vaccine. - Social history:: Smoking status: unknown. ROS: 07/02 01:57 Constitutional: Negative for fever, chills, and weight loss. sb4 Respiratory: Positive for shortness of breath. Abdomen/GI: Positive for abdominal pain, nausea and vomiting. MS/extremity: Positive for pain, of the left hip. All other systems are negative. Exam: 02:02 Head/Face: Normocephalic, atraumatic. Eyes: Extra-ocular motions intact. Periorbital sb4 areas with no swelling, redness, or edema. ENT: Mucous membranes moist. Cardiovascular: Regular rate and rhythm with a normal S1 and S2. Respiratory: Lungs have equal breath sounds bilaterally, clear to auscultation and percussion. No rales, rhonchi or wheezes noted. No increased work of breathing, no retractions or nasal flaring. Abdomen/GI: Soft, non-tender, no distension. Back: No spinal tenderness. No costovertebral tenderness. Full range of motion. Skin: Warm, dry with normal turgor. Normal color with no rashes, no lesions, and no evidence of cellulitis. MS/ Extremity: Pulses equal, no cyanosis. Neurovascular intact. Full, normal range of motion. Neuro: Awake and alert, GCS 15, oriented to person, place, time, and situation. Cranial nerves II-XII grossly intact. Motor strength 5/5 in all extremities. Sensory grossly intact. Cerebellar exam normal. Normal gait. 02:02 Constitutional: The patient appears alert, awake, obese, uncomfortable, unkempt, deconditioned Vital Signs: 07/01 18:38 Pulse 85; Resp 18; Temp 97.9; Weight 142.43 kg; Height 5 ft. 3 in. ; Pain 7/10; ap3 18:39 BP 106 / 76; Pulse Ox 94% ; ap3 20:49 BP 114 / 80; Pulse 84; Resp 18; Pulse Ox 96% ; vc1 22:30 BP 123 / 92; Pulse 90; Resp 16 S; Pulse Ox 96% on R/A; lg3 23:37 BP 135 / 82; Pulse 81; Resp 17 S; Pulse Ox 96% on R/A; lg3 18:38 Body Mass Index 55.62 (142.43 kg, 160.02 cm) ap3 18:38 Pain Scale: Adult ap3 MDM: 18:34 Patient medically screened. sb4 20:37 ED course: care delayed because patient left ED with IV. patient called and is now sb4 returning to ED. 07/02 02:02 Differential diagnosis: asthma, Bronchitis CHF exacerbation, Chronic Obstructive sb4 Pulmonary Disease pneumonia, pulmonary edema, reactive airway disease. Antibiotic administration: Not indicated, the patient does not have an appreciated infiltrate. Data interpreted: Pulse oximetry: on room air is 96 %. Interpretation: normal. Data reviewed: vital signs, nurses notes, lab test result(s), EKG, radiologic studies, and as a result, I will discharge patient. Consideration of Admission/Observation Escalation of care including admission/observation considered. Care significantly affected by the following chronic conditions: Diabetes, Hypertension, Congestive Heart Failure, Chronic Obstructive Pulmonary Disease, Obesity, Cancer. Counseling: I had a detailed discussion with the patient and/or guardian regarding the historical points, exam findings, and any diagnostic results supporting the discharge/admit diagnosis, lab results, radiology results, to return to the emergency department if symptoms worsen or persist or if there are any questions or concerns that arise at home. 07/01 18:45 Order name: CBC with Diff; Complete Time: 21:36 [facility] 07/01 18:45 Order name: CMP; Complete Time: 21:44 [facility] 07/01 18:45 Order name: Lipase; Complete Time: 21:44 [facility] 07/01 18:45 Order name: SARS RAPID; Complete Time: 21:36 [facility] 07/01 18:45 Order name: Flu; Complete Time: 21:53 [facility] 07/01 18:45 Order name: Blood Culture Adult (2) [facility] 07/01 18:45 Order name: Magnesium; Complete Time: 21:44 [facility] 07/01 18:45 Order name: NT PRO-BNP; Complete Time: 21:44 [facility] 07/01 18:45 Order name: PT-INR; Complete Time: 21:36 [facility] 07/01 18:45 Order name: Ptt, Activated; Complete Time: 21:36 [facility] 07/01 18:45 Order name: Troponin HS; Complete Time: 21:44 [facility] 07/01 21:36 Order name: CREATININE WHOLE BLOOD; Complete Time: 21:36 [facility] 07/01 18:45 Order name: CT Abd/Pelvis - IV Contrast Only; Complete Time: 20:02 [facility] 07/01 18:45 Order name: XRAY CXR (1 view); Complete Time: 19:55 [facility] 07/01 20:49 Order name: Hip Left 2 View XRAY; Complete Time: 21:53 [facility] 07/01 18:45 Order name: EKG; Complete Time: 18:45 [facility] 07/01 18:45 Order name: Cardiac monitoring; Complete Time: 20:50 [facility] 07/01 18:45 Order name: EKG - Nurse/Tech; Complete Time: 21:11 [facility] 07/01 18:45 Order name: IV Saline Lock; Complete Time: 21:11 [facility] 07/01 18:45 Order name: Labs collected and sent; Complete Time: 21:11 [facility] 07/01 18:45 Order name: O2 Per Protocol; Complete Time: 20:50 sb4 07/01 18:45 Order name: O2 Sat Monitoring; Complete Time: 20:50 sb4 EC/31 21:55 Rate is 77 beats/min. Rhythm is regular, Normal Sinus Rhythm. AL interval is normal at sb4 162 msec. QRS interval is normal at 82 msec. QT interval is normal at 390 msec. No Q waves. T waves are Normal. No ST changes noted. Clinical impression: Normal ECG. Interpreted by me. Reviewed by me. Administered Medications: 21:57 Drug: Ondansetron IVP 4 mg Route: IVP; Site: right antecubital; lg3 23:36 Follow up: Response: No adverse reaction lg3 22:31 Drug: Magnesium Sulfate IVPB 1 grams Route: IVPB; Infused Over: 1 hrs; Site: right lg3 antecubital; 23:35 Follow up: Response: No adverse reaction; IV Status: Completed infusion; IV Intake: lg3 100ml 23:23 Drug: fentaNYL (PF) IVP 50 mcg Route: IVP; Site: right antecubital; vc1 23:35 Follow up: Response: No adverse reaction; Marked relief of symptoms lg3 Disposition: 20:42 Co-signature as Attending Physician, Jaspreet Rhoades DO I was immediately available on-site ms3 in the Emergency Department for consultation in the care of the patient. Disposition Summary: 07/01/23 23:04 Discharge Ordered Location: Home sb4 Problem: an ongoing problem sb4 Symptoms: are unchanged sb4 Condition: Stable sb4 Diagnosis - Abdominal pain, Generalized sb4 - Noninfective gastroenteritis and colitis, unspecified sb4 Followup: sb4 - With: Private Physician - When: As needed - Reason: Recheck today's complaints, Continuance of care, Re-evaluation by your physician Discharge Instructions: - Discharge Summary Sheet sb4 - Viral Gastroenteritis, Adult sb4 Forms: - Medication Reconciliation Form sb4 - Thank You Letter sb4 - Antibiotic Education sb4 - Prescription Opioid Use sb4 - Patient Portal Instructions sb4 - Leadership Thank You Letter sb4 Signatures: Dispatcher [employer] EDPham Kennedy RN RN ap3 Ginna Valenzuela RN RN lg3 Jaspreet Rhoades DO DO ms3 Brigitte Perez RN RN vc1 Brown, June, PA-C PA-C sb4 Corrections: (The following items were deleted from the chart) : 18:45 IV Saline Lock ordered. sb4 vc1 :51 18:45 Labs collected and sent ordered. sb4 vc1
[2023-07-01] MEDS ORDERED: FENTANYL CITR 100 MCG/2 ML ONE (23:30)
[2023-07-02 01:07] VITALS: O2SAT 96
[2023-07-02 01:10] VITALS: BP 135/82
--- NOTE | 2023-07-02 15:22 | EKG ---
Test Date: 2023-07-01 Test Time: 20:53:26 Clinical Laboratory Medical Director: MAKI MEASUREMENT RESULTS: Intervals: Rate: 77 MI: 162 QRSD: 82 QT: 390 QTc: 441 [place]: P: 29 MI: 162 QRS: 28 T: 26 INTERPRETIVE STATEMENTS: Normal sinus rhythm Cannot rule out Anterior infarct, age undetermined Abnormal ECG Compared to ECG 06/10/2023 05:59:33 No significant changes Electronically Signed On 07-02-23 15:20:48 CDT by Alhaji Loya
== END 2023-07-01 23:43 | disposition home or self-care (01) ==
LOC: ER 18:29
DX: K52.9 Noninfective gastroenteritis and colitis, unspecified (principal); R06.02 Shortness of breath; M25.552 Pain in left hip; E11.9 Type 2 diabetes mellitus without complications; I10 Essential (primary) hypertension; I50.9 Heart failure, unspecified; Z20.822 Contact with and (suspected) exposure to COVID-19; Z88.1 Allergy status to other antibiotic agents; Z88.8 Allergy status to other drugs, medicaments and biological substances; Z91.018 Allergy to other foods
CPT/HCPCS: 96365; 93005; 87040 ×2; 85025; 36415; 83735; 87205; 85610; 82565; 85730; 84484; 83690; 80053; 83880; 87804 ×2; 74177; 71045; 73502; 96375; 99285; 87811; Q9967; J3475; J3010; J2405

== ENCOUNTER 2023-08-16 14:06 | Emergency (ER) | payer OTHER ==
--- OUTSIDE RECORDS SUMMARY | 2023-08-16 14:19 | XMS REPORT | Clinical Summary ---
:1965 Author Organization [facility] MD [facility] Address [address] [place] [address] Care Team Providers Name Role Phone Bina Obando MD Unavailable Kenya Agarwal MD Primary Care Provider Trent Irving MD Unavailable Randall Sheriff MD Unavailable Vignesh Waddell MD Unavailable Naa Miller MD [facility] Rafael Rosas MD Unavailable Suzanne Mcgrath MD Unavailable Winter Luu MD Unavailable Vaibhav Rosario MD Unavailable Rogerio Kramer MD Unavailable Rosana Harkins MD Unavailable Allergies Active Allergy Reactions Severity Noted Date Comments Doxycycline GI Intolerance, High 01/14/2015 Other reacti on(s): Nausea And Vomiting Unknown Other reaction( s): n/v, Nausea/Vomiting , Unknown Kiwi (Actinidia Anaphylaxis, Other High 01/25/2022 Chinensis) (See Comments) Pregabalin Other (See 01/12/2023 depression Comments) Metformin GI Intolerance 07/28/2023 Metoclopramide GI Intolerance, High 01/14/2015 Other reac [...] procedure Metoclopramide Hcl Other (See 10/16/2022 Comments) Pima Juice Nausea And Low 04/18/2021 Vomiting, GI [...] tablet MOUTH AT BEDTIME NEEDED FOR INSOMNIA prochlorperazine Take 1 tablet 60 tablet 3 [...] Active (Easy Comfort Pen insulin 4 times [place]) 31 gauge x a day 03/16" ndleIndications: [...] AND 35-95 complication Units daily before dinner. Additional Information Patient taking differently: Inject 14-190 Units under the skin daily with breakfast AND 100-145 Units daily before lunch AND 60-95 Units daily before dinner., Reason: Other, Informant: Self, Reported on 07/28/2023 pseudoephedrine Take 1 tablet (30 60 tablet 0 02/26/2023 Active (Sudafed) 30 mg mg) by mouth every tabletIndications: 8 (eight) hours as Chronic pain needed for congestion. oxyCODONE-acetaminophen Take 1 tablet by 60 tablet 0 3 Active (Percocet) 5 mg-325 mg mouth 2 (two) times per tabletIndications: a day as needed for Cancer associated pain severe pain. gabapentin (NEURONTIN) TAKE 1 TABLET(800 90 tablet 0 3 Active 800 mg MG) BY MOUTH EVERY tabletIndications: 8 HOURS Chronic pain promethazine-dextrometh TAKE 5 ML BY MOUTH 0 023 Active orphan EVERY 6 HOURS (PROMETHAZINE-DM) NEEDED FOR COUGH 6.25-15 mg/5 mL syrup benzonatate (TESSALON) Take 1 capsule (100 0 023 Active 100 mg capsule mg) by mouth as needed. spironolactone TAKE 1 TABLET BY 0 03/27/2023 Active (ALDACTONE) 25 mg MOUTH EVERY DAY tablet metoprolol succinate TAKE 1 TABLET BY 0 02/24/2023 Active (TOPROL XL) 100 mg 24 MOUTH TWICE DAILY hr tablet blood-glucose sensor Use to check 3 each 3 07/28/2023 Active (FreeStyle Young 3 glucose Sensor) kitIndications: continuously every Type 2 diabetes 14 days mellitus without complication DULoxetine (Cymbalta) Take 1 capsule (60 90 capsule 3 07/28/20 23 Active 60 mg mg) by mouth daily. capsuleIndications: Neuropathy due to diabetes mellitus tirzepatide (Mounjaro) Inject 5 mg under 2 mL 1 3 Active 5 mg/0.5 mL the skin every 7 pnijIndications: Type 2 days. After about 3 diabetes mellitus doses, notify without complication supervisor pigment making if you are feeling well and we can increase the dose. allopurinol (ZYLOPRIM) TAKE 1 TABLET BY 0 09/01/2022 03/2 Discontinued 300 mg tablet MOUTH TWICE DAILY (Stop Taking at 23 Discharge) cloNIDine HCl TAKE 1 TABLET BY 0 11/09/202212/31 Discontinued (CATAPRES) 0.2 mg MOUTH THREE TIMES (Stop Taking at tablet DAILY 23 Discharge) cetirizine (ZyrTEC) 10 TAKE 1 TABLET BY 0 10/29/202212/30 Discontinued mg tablet MOUTH ONCE DAILY 02/18 (Error) NEEDED FOR 23 ALLERGIES colchicine (COLCRYS) TAKE 1 TABLET BY 0 09/21/2022 0 3/2 Discontinued 0.6 mg tablet MOUTH DAILY (Sto p Taking at 23 Discharge) diclofenac sodium APPLY TOPICALLY TO 0 10/21/2022 04 /0 Discontinued (Voltaren) 1 % gel THE AFFECTED AREA 12/31 0 (Stop Taking at THREE TIMES DAILY 23 Di scharge) dicyclomine (BENTYL) 10 TAKE 1 CAPSULE BY 0 10/12/2012/31 Discontinued mg capsule MOUTH EVERY 8 HOURS (Stop Taking at 23 Discharge) gabapentin (NEURONTIN) TAKE 1 TABLET BY 0 10/21/202212/02 Discontinued 600 mg tablet MOUTH IN THE 02/18 (St op Taking at MORNING AND AT NOON 23 Discharge) AND IN THE EVENING hydrALAZINE TAKE 1 TABLET BY 0 10/01/202212/02 Discontinued (APRESOLINE) 100 mg MOUTH THREE TIMES (Stop Taking at tablet DAILY Discharge) hydroCHLOROthiazide 1 capsule (12.5 mg) 0 11/09/202212/31 Discontinued (MICROZIDE) 12.5 mg every morning. 01/18 capsule 23 HYDROcodone-acetaminoph TAKE 1 TABLET BY 0 12/02 Discontinued en (NORCO) 7.5 mg-325 MOUTH EVERY 6 HOURS 02/18 (Stop Taking at mg per tablet NEEDED FOR PAIN Discharge) OR CHRONIC PAIN hydrocortisone 1 % crpe APPLY TWICE DAILY 0 09/10/2012/30 Discontinued IN AND AROUND THE 02/18 (E rror) RECTUM AFTER SITZ 23 BATH hydrocortisone UNWRAP AND INSERT 0 11/06/202212/30 Discontinued (ANUSOL-HC) 25 mg ONE (1) SUPPOSITORY (Error) suppository IN THE RECTUM TWICE 23 A DAY. HumuLIN 70/30 U-100 0 11/16/202212/02 Discontinued Insulin 100 unit/mL 02/18 (Stop Taking at (70-30) injection 23 Di scharge) Victoza 2-Ze 0.6 ADMINISTER 1.8 MG 0 10/01/202212/02 Discontinued mg/0.1 mL (18 mg/3 mL) UNDER THE SKIN (Reorder) pnij injection EVERY DAY 23 lisinopril TAKE 1/2 TABLET BY 0 10/01/202212/02 Discontinued (PRINIVIL,ZESTRIL) 40 MOUTH TWICE DAILY 02/18 (Stop Taking at mg tablet 23 Discharge) lubiprostone (AMITIZA) TAKE 1 CAPSULE BY 0 2 12/30 Discontinued 24 MCG capsule MOUTH TWICE DAILY 02/18 (Error) 23 metFORMIN (GLUCOPHAGE) TAKE 1 TABLET BY 0 09/21/202212/02 Discontinued 1000 mg tablet MOUTH IN THE 02/18 (S top Taking at MORNING AND IN THE 23 D ischarge) EVENING WITH MEALS metoprolol tartrate TAKE 1 TABLET BY 0 11/03/2022 Discontinued (LOPRESSOR) 100 mg MOUTH TWICE DAILY 01/31 0 (Reorder) tablet [address] 1 TABLET 0 09/18/202212/30 Discontinued (NITROSTAT) 0.4 mg SL UNDER THE TONGUE (Error) tablet EVERY 5 MINUTES FOR 23 CHEST PAIN. BD Devorah 2nd Gen Pen USE DIRECTED. 0 10/05/2022 Discontinued Needle 32 gauge x 5/32" 02/18 (Reorder) ndle 23 rizatriptan 0 08/25/202212/30 Discont inued (MAXALT-WASTEWATER MANAGER) 5 mg 02/18 (E rror) disintegrating tablet 23 spironolactone TAKE 1 TABLET BY 0 10/19/202212/02 Discontinued (ALDACTONE) 25 mg MOUTH EVERY DAY 02/18 (Stop Taking at tablet 23 Discharge) sucralfate (CARAFATE) 1 TAKE 1 TABLET BY 0 2 12/02 Discontinued g tablet MOUTH TWICE DAILY 02/18 (S top Taking at 23 Discharge) insulin syringe-needle USE TWICE DAILY 0 10/01/202212/02 Discontinued U-100 1 mL 31 gauge x WITH MEALS. 02/18 (Stop Taking at 5/16 syrg 23 Discharge) triamcinolone (KENALOG) APPLY TOPICALLY TO 0 022 12/30 Discontinued 0.1% cream THE AFFECTED AREA 02/18 ( Error) TWICE DAILY 23 BD Insulin Syringe USE 1 SYRINGE 0 03/03/202212/02 Discontinued U-500 1/2 mL 31 gauge x DIRECTED TWICE (Stop Taking at 15/64" syrg DAILY WITH MEALS 23 D ischarge) ondansetron Dissolve 1 tablet 30 tablet 0 11/26/202212/02 Discontinued (ZOFRAN-ODT) 8 mg (8 mg) on the 05/20 (Reorder) disintegrating tongue every 8 23 tabletIndications: (eight) hours as Adenocarcinoma of needed for nausea. nasopharynx HYDROmorphone Take 1 tablet (2 60 tablet 0 12/02/202212/02 Discontinued (DILAUDID) 2 mg mg) by mouth every 02/18 (Stop Taking at tabletIndications: 4 (four) hours as 23 Discharge) Adenocarcinoma of needed (cancer nasopharynx pain). dexamethasone Take 1 tablet (2 60 tablet 0 12/05/202212/30 Discontinued (DECADRON) 2 mg mg) by mouth twice 02/18 (Error) tabletIndications: daily. 23 Adenocarcinoma of nasopharynx insulin regular hum Inject 110 to 160 24 mL 3 12/15/2022 0 12/02 Discontinued U-500 conc (HumuLIN R Units under the (Reorder) U-500, Conc, Kwikpen) skin 3 (three) 23 500 unit/mL (3 mL) times a day before insulin penIndications: meals. Type 2 diabetes mellitus without complication BD Devorah 2nd Gen Pen Inject 1 Device 100 each 3 12/15/2022 04/ 0 Discontinued Needle 32 gauge x 5/32" under the skin 3 01/18 (Stop Taking at ndleIndications: Type 2 (three) times a day 23 Discharge) diabetes mellitus before meals. without complication Victoza 2-Ze 0.6 Inject 0.3 mL (1.8 9 mL 3 12/15/2022 / Discontinued mg/0.1 mL (18 mg/3 mL) mg) under the skin 05/20 (Therapy pnij daily. 23 completed) injectionIndications: Type 2 diabetes mellitus without complication gabapentin (NEURONTIN) Take 1 tablet (600 90 tablet 0 12/15/19 23 04 Discontinued 600 mg mg) by mouth every 01/18 ( Stop Taking at tabletIndications: 8 (eight) hours. 23 Discharge) Headache, not otherwise specified celecoxib (CeleBREX) Take 1 capsule (200 30 capsule 0 12/16/19 Discontinued 200 mg mg) by mouth daily. 11/20 (Therapy capsuleIndications: 23 completed) Headache, not otherwise specified oxyCODONE-acetaminophen Take 1 tablet by 90 tablet 0 3 Discontinued (Percocet) 5 mg-325 mg mouth every 4 3 0 (Reorder) per tabletIndications: (four) hours as 2 3 Neoplasm related pain needed for moderate (acute) (chronic) pain. metoprolol tartrate Take 1 tablet (50 60 tablet 0 12/15/2022 0 12/31 Discontinued (LOPRESSOR) 50 mg mg) by mouth twice 0 (Reorder) tabletIndications: daily for 30 days. 23 Hypertension fluoride, sodium, Apply to teeth 56 g 0 12/16/202212/30 Discontinued (DENTAGEL) 1.1% dental daily for 30 days. 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 Type 2 diabetes mellitus without complication pantoprazole (Protonix) Take 1 tablet (40 30 tablet 0 12/15/1912/02 Discontinued 40 mg EC mg) by mouth every 02/18 ( Stop Taking at tabletIndications: morning before 23 Discharge) Gastroesophageal reflux breakfast for 30 disease days. ondansetron (ZOFRAN) 8 Take 1 tablet (8 30 tablet 3 12/17/2022 Discontinued mg tabletIndications: mg) by mouth every 04/20 (Reorder) Adenoid cystic 8 (eight) hours as 23 carcinoma of needed for nausea nasopharynx, NOS or vomiting. ondansetron Dissolve 1 tablet 60 tablet 1 12/18/202212/02 Discontinued (ZOFRAN-ODT) 8 mg (8 mg) on the 05/20 disintegrating tongue every 06 23 tabletIndications: (eight) hours as Adenocarcinoma of needed for nausea. nasopharynx sodium chloride (NS) Inject 10 mL (1 30 each 6 12/23/2022 Discontinued 0.9% flush syringe 10 syringe) into each 06/20 (Stop Taking at mLIndications: Adenoid lumen of central Discharge) cystic carcinoma of venous catheter nasopharynx, NOS daily as directed. cyclobenzaprine Take 1 tablet (10 60 tablet 0 12/30/202212/31 Discontinued (FLEXERIL) 10 mg mg) by mouth 3 (Reorder) tabletIndications: (three) times a day 2 3 Cancer associated pain as needed for muscle spasms (neck pain). pseudoephedrine Take 1 tablet (30 60 tablet 0 12/30/202212/30 Discontinued (Sudafed) 30 mg mg) by mouth 2 02/18 (Error) tabletIndications: (two) times a day 23 Cancer associated pain as needed for congestion. oxyCODONE-acetaminophen Take 1 tablet by 45 tablet 0 3 12/30 Discontinued (Percocet) 5 mg-325 mg mouth every 4 01/31 0 (Error) per tabletIndications: (four) hours as 2 3 Neoplasm related pain needed for moderate (acute) (chronic) pain. lidocaine (XYLOCAINE) Swish and swallow 5 100 mL 3 01/05/20 23 2 Discontinued 20 mg/mL (2%) viscous mL every 6 (six) (Stop Taking at solutionIndications: hours as needed 23 Discharge) Adenocarcinoma of (painful nasopharynx swallowing). hydrALAZINE Take 1 tablet (100 0 03/2 Discontinued (APRESOLINE) 100 mg mg) by mouth 3 (Stop Taking at tablet (three) times a 23 Disc harge) day. metFORMIN (GLUCOPHAGE) Take 1 tablet 0 03/ 2 Discontinued 1000 mg tablet (1,000 mg) by mouth 020 (Stop Taking at 2 (two) times a day 23 Discharge) with meals. spironolactone Take 1 tablet (25 0 03/2 Discontinued (ALDACTONE) 25 mg mg) by mouth daily. 0/ 20 (Stop Taking at tablet 23 Discharge) oxyCODONE-acetaminophen Take 1 tablet by 0 3 12/31 Discontinued (Percocet) 5 mg-325 mg mouth every 4 0 0 (Reorder) per tabletIndications: (four) hours as 2 3 Neoplasm related pain needed for moderate (acute) (chronic) pain. oxyCODONE-acetaminophen Take 1 tablet by 60 tablet 0 3 04/0 Discontinued (Percocet) 5 mg-325 mg mouth every 6 (six) 01/18 (Stop Taking at per tabletIndications: hours as needed for 23 Discharge) Neoplasm related pain severe pain. (acute) (chronic) cyclobenzaprine Take 1 tablet (10 60 tablet 0 01/18/202312/31 Discontinued (FLEXERIL) 10 mg mg) by mouth 3 12/21 (Therapy tabletIndications: (three) times a day 2 3 completed) Cancer associated pain as needed for muscle spasms (neck pain). xyloxylin oral Swish and swallow 480 mL 1 01/18/202312/31 Discontinued suspension 10 mL every 6 (six) (Reorder) (AMB-CMPD)Indications: hours as needed for 23 Ulcerative oral mouth pain. mucositis due to antineoplastic therapy sucralfate (CARAFATE) Take 10 mL (1,000 420 mL 0 01/18/202312/31 Discontinued 100 mg/mL mg) by mouth 4 (Reor teetee) suspensionIndications: (four) times a day. 23 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 metoprolol tartrate Take 1 tablet (50 60 tablet 0 01/18/2023 0 12/31 Discontinued (LOPRESSOR) 50 mg mg) by mouth twice 0 (Reorder) tabletIndications: daily for 30 days. 23 Hypertension insulin regular hum Inject 50 to 125 24 mL 3 01/18/2023 04 /0 Discontinued U-500 conc (HumuLIN R Units under the (Reorder) U-500, Conc, Kwikpen) skin 3 (three) 23 500 unit/mL (3 mL) times a day, before insulin penIndications: meals. Inject as Type 2 diabetes instructed at mellitus without discharge. complication pen needle, diabetic Use as directed. 10 each 0 01/18/2023 0 4/0 Discontinued needle 12/21 (Reorder) 23 sucralfate (CARAFATE) Take 10 mL (1,000 420 mL 0 01/18/202312/31 Discontinued 100 mg/mL mg) by mouth 4 (Reor teetee) suspensionIndications: (four) times a day. 23 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 xyloxylin oral Swish and swallow 480 mL 1 01/18/202312/31 Discontinued suspension 10 mL every 6 (six) 0 (Reorder) (AMB-CMPD)Indications: hours as needed for 23 Ulcerative oral mouth pain. mucositis due to antineoplastic therapy metoprolol tartrate Take 1 tablet (50 60 tablet 0 01/18/2023 0 01/30 (LOPRESSOR) 50 mg mg) by mouth twice 07/03 0 tabletIndications: daily for 30 days. 23 Hypertension sucralfate (CARAFATE) Take 10 mL (1,000 420 mL 0 01/18/202301/30 Discontinued 100 mg/mL mg) by mouth 4 06/20 (Stop Taking at suspensionIndications: (four) times a day. 23 Discharge) 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 xyloxylin oral Swish and swallow 480 mL 1 01/18/202312/31 Discontinued suspension 10 mL by mouth 12/21 (Reo rder) (AMB-CMPD)Indications: every 6 (six) hours 23 Ulcerative oral as needed for mouth mucositis due to pain. antineoplastic therapy UNABLE TO FIND Compound Drug 0 01/18/202301/30 Discontinued 06/20 (Stop Taki ng at 23 Discharge) xyloxylin oral Swish and swallow 480 mL 1 01/20/202301/30 Discontinued suspension 10 mL 2 (two) times 06/20 (Stop Taking at (AMB-CMPD)Indications: a day as needed for 23 Discharge) Ulcerative oral mouth pain. mucositis due to antineoplastic therapy insulin regular Inject 5 units to 10 mL 1 01/31/202301/30 Discontinued (HumuLIN R Regular 25 units with meals (Stop Taking at U-100 Insuln) 100 as needed for blood 23 Discharge) units/mL sugar greater than injectionIndications: 150 mg/dL Type 2 diabetes mellitus with hyperglycemia insulin regular hum Inject 50 to 125 24 mL 3 01/31/2023 Discontinued U-500 conc (HumuLIN R Units under the (Reorder) U-500, Conc, Kwikpen) skin 3 (three) 23 500 unit/mL (3 mL) times a day, before insulin penIndications: meals. Inject as Type 2 diabetes instructed at mellitus without discharge. complication pen needle, diabetic Use as directed. 10 each 0 01/31/2023 0 01/30 Discontinued needle 06/20 (Stop Taki ng at 23 Discharge) insulin syringe-needle USE DIRECTED 360 each 3 02/02/202301/30 Discontinued U-100 1 mL 31 gauge x FOUR TIMES DAILY (Stop Taking at /16 syrgIndications: 23 Discharge) Type 2 diabetes mellitus with hyperglycemia gabapentin (NEURONTIN) Take 1 tablet (800 90 tablet 0 02/02/20 Discontinued 800 mg mg) by mouth every 12/21 tabletIndications: 8 (eight) hours. 23 Chronic pain oxyCODONE-acetaminophen Take 1 tablet by 30 tablet 0 Discontinued (PERCOCET) 7.5-325 mg mouth every 6 (six) 02/18 (Dose per tabletIndications: hours as needed for 23 adjustment) Chronic pain severe pain. hydrALAZINE Take 1 tablet (100 0 01/30 Discontinued (APRESOLINE) 100 mg mg) by mouth 3 06/20 (Stop Taking at tabletIndications: (three) times a 23 Discharge) hypertension day. hydroCHLOROthiazide Take 1 capsule 0 01/30 Discontinued (MICROZIDE) 12.5 mg (12.5 mg) by mouth (Stop Taking at capsule every morning. 23 Disch arge) cloNIDine HCl Take 1 tablet (0.2 0 01/30 Discontinued (CATAPRES) 0.2 mg mg) by mouth 3 06/20 (Stop Taking at tablet (three) times a day 23 Discharge) as needed. oxyCODONE-acetaminophen Take 1 tablet by 45 tablet 0 3 01/30 Discontinued (Percocet) 7.5-325 mg mouth every 6 (six) 06/20 (Stop Taking at per tabletIndications: hours as needed for 23 Discharge) Neoplasm related pain severe pain for up (acute) (chronic) to 45 days. enoxaparin (LOVENOX) Inject 0.8 mL (120 60 each 0 02/12/202303/03 Discontinued 120 mg/0.8 mL prefilled mg) under the skin 11/20 syringeIndications: every 12 (twelve) 23 Deep venous thrombosis hours. <Unspecified side> levoFLOXacin (LEVAQUIN) Take 1 tablet (750 3 tablet 0 023 01/31 750 mg mg) by mouth daily 11/20 tabletIndications: for 3 days. 23 Adenoid cystic carcinoma of nasopharynx, NOS, Deep venous thrombosis <Unspecified side> gabapentin (NEURONTIN) TAKE 1 TABLET(800 90 tablet 0 3 Discontinued 800 mg MG) BY MOUTH EVERY 07/21 ( Reorder) tabletIndications: 8 HOURS 23 Chronic pain cefPODoxime (VANTIN) Take 1 tablet (200 0 03/14/202307/03 Discontinued 200 mg tablet mg) by mouth twice 05/20 (Therapy daily. 23 completed) apixaban (Eliquis) 5 mg Take 1 tablet (5 84 tablet 0 3 07/03 Discontinued tabletIndications: mg) by mouth every (Therapy Acute thrombosis of 12 (twelve) hours. 2 3 completed) right axillary vein, Bilateral acute thrombosis of basilic veins, Thrombosis of left cephalic vein, [facility] use of anticoagulant metFORMIN (GLUCOPHAGE) TAKE 1 TABLET BY 0 03/10/202304/02 Discontinued 1000 mg tablet MOUTH IN THE 02/18 (T herapy MORNING AND IN THE 23 c ompleted) EVENING WITH MEALS oxyCODONE-acetaminophen 0 03/20/202307/03 Discontinued (PERCOCET) 2.5-325 mg 05/20 (Duplicate per tablet 23 order) predniSONE (DELTASONE) TWICE DAILY 0 03/26/202307/03 Discontinued 10 mg tablet 05/20 (Other ) 23 hydrocortisone (CORTEF) Take 2 tablets (20 90 tablet 1 023 07/03 Discontinued 10 mg mg) by mouth daily 11/20 tabletIndications: with breakfast AND 23 Abnormal cortisol 1 tablet (10 mg) daily with dinner. metFORMIN (GLUCOPHAGE) Take 1 tablet 180 tablet 3 05/26/2023 0 07/03 Discontinued 1000 mg (1,000 mg) by mouth 05/20 tabletIndications: Type 2 (two) times a day 23 2 diabetes mellitus with meals. with hyperglycemia semaglutide (Ozempic) 1 Inject 1 mg under 3 mL 0 05/26/20 23 06/02 Discontinued mg/dose (4 mg/3 mL) the skin every 7 12/03 0 (Dose pnijIndications: Type 2 days. 23 adjustment) diabetes mellitus with hyperglycemia semaglutide 2 mg/dose Inject 2 mg under 3 mL 5 06/22/2023 10/0 Discontinued (8 mg/3 mL) the skin every 7 12/21 ( Alternate pnijIndications: Type 2 days. 23 therapy) diabetes mellitus with hyperglycemia hydrocortisone (CORTEF) TAKE 2 TABLETS FOR 90 tablet 0 023 07/03 Discontinued 10 mg PAIN DAILY WITH 05/20 (The rapy tabletIndications: BREAKFAST AND 11 23 completed) Abnormal cortisol TABLET BY MOUTH WITH DINNER Active Problems Problem Noted Date intermediate manager use of anticoagulant 03/31/2023 Acute thrombosis of [...] 10 percent indicating poor 01/1205/25/2023 diabetic control intermediate manager current use of systemic steroid 12/10/2022 05/25/2023 Encounters Date Type Specialty Care Team Description 08/02/2023 Orders Only Endocrinology Jose, Type 2 diabete s BORIS Calixto mellitus witho ut complication (P rimary Dx) 07/28/2023 Telemedicine Endocrinology Raymond, Type 2 diabete s mellitus without complication (Primary Dx); No Otto MD Neuropathy due to diabetes mellitus 07/22/2023 Documentation Ophthalmology Bridget Allison, RN 07/20/2023 Refill Endocrinology Jose, Abnormal corti kaye Marily, BORIS 07/06/2023 Telephone Endocrinology Marily Garcia, BORIS 07/02/2023 Orders Only Head and Neck McAnulty, Adenocarcinoma of Surgery Red M, nasopharynx (Pr 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 PASTE PLANT SUPERVISOR Dx) 06/22/2023 Procedure visit Endocrinology Raymond Type 2 diab etes No Otto MD mellitus with hyperglycemia (Primary Dx) 06/22/2023 Orders Only Endocrinology Raymond, Type 2 diabete s No Otto MD mellitus with hyperglycemia (Primary Dx) 06/21/2023 Telephone Endocrinology Angela Lopes APRN Needle, Pamela A, RN 06/17/2023 Treatment Speech Pathology Monico Poole, Dysarthri a (Primary Dx); Oropharyngeal dysphagia Sheba Olivarez, CCC-MENTAL HEALTH COORDINATOR 06/17/2023 Documentation Speech Pathology Sheba Olivarez [facility]-MENTAL HEALTH COORDINATOR 06/17/2023 Documentation Speech Pathology Sheba Olivarez [facility]-MENTAL HEALTH COORDINATOR 06/17/2023 Travel 06/16/2023 Telephone Head and Neck Diazy, Surgery Red M, PASTE PLANT SUPERVISOR 06/08/2023 Documentation Endocrinology Jenna Alvarado RN 06/06/2023 Refill Oncology Lorena Hdez Adenoid cysti c BORIS Garza carcinoma of nasopharynx, NO S 05/26/2023 Telemedicine Endocrinology Jose, [...] nasopharynx, NO S 04/22/2023 Ancillary Procedure Radiology LuuWinter MD carcinoma of nasopharynx, NO S 04/22/2023 Travel 04/09/2023 Refill Pain Medicine Flaco Thomas RN 04/08/2023 Refill Pain Medicine Miguel Gordon Chronic pain MD Rebecca 03/31/2023 Office Visit Hematology Rosana Harkins MD intermediate manager use of anticoagulant (Primary Dx); Adenoid cystic [...] Endocrinology Angela Lopes, Type 2 diabet es PASTE PLANT SUPERVISOR mellitus withou t complication (P rimary Dx) 03/18/2023 Telephone Oncology Vaibhav Rosario MD 03/16/2023 Orders Only Oncology Lorena Hdez cysti c Kayla, PASTE PLANT SUPERVISOR carcinoma of nasopharynx, 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) 03/12/2023 Nutrition Nutrition Kenya Agarwal MD Martin, Cathy A, ADAM 03/11/2023 Infusion Infusion Services Lorena Hdezid cystic Kayla, PASTE PLANT SUPERVISOR carcinoma of nasopharynx, 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) 03/11/2023 Follow-Up Oncology Lorena Hdezid cystcarlos Garza, PASTE PLANT SUPERVISOR carcinoma of nasopharynx, 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) 03/11/2023 Travel 03/09/2023 Telephone Oncology Lorena Hdez, PASTE PLANT SUPERVISOR 03/04/2023 Nutrition Kenya Gastelum MD Martin, Cathy A, ADAM 03/04/2023 Orders Only Oncology Lorena Hdez, PASTE PLANT SUPERVISOR 03/04/2023 Telephone Thoracic Medicine Tita Kwon RN 03/04/2023 Orders Only Pain Medicine Miguel Gordon Cancer assoc shantanu Fernandez MD pain (Primary D x) 03/03/2023 Follow-Up Thoracic Medicine Kenny Power, Adenoid cy stic carcinoma of nasopharynx, NOS; MD Vaibhav Deep venous thr ombosis <Unspecified side> 03/03/2023 Refill Pain Medicine Tryell Chronic pain Anumol, PASTE PLANT SUPERVISOR 03/03/2023 Travel 03/02/2023 Refill Pain Medicine Tyrell Chronic pain Anumol, PASTE PLANT SUPERVISOR 02/26/2023 Telemedicine Pain Medicine Miguel Gordon Chronic pain (Primary J., MD Dx) 02/25/2023 Nutrition Kenya Gastelum MD [...] pain 02/10/2023 Orders Only Speech Pathology Charla Solis, Oropharyn geal CCC-MENTAL HEALTH COORDINATOR dysphagia (Prim cristina Dx) 02/08/2023 Hospital Encounter [...] Dx) 02/03/2023 Orders Only Oncology Lorena Hdez APRN 02/03/2023 Travel 02/02/2023 Travel 01/31/2023 Refill Internal Medicine Rohan, Type 2 juliet ryan Peñaloza, mellitus with PASTE PLANT SUPERVISOR hyperglycemia (Primary Dx) 01/28/2023 Telephone Radiation Oncology Felisa Castillo, JCARLOS 01/28/2023 Orders Only Oncology Lorena Hdez, PASTE PLANT SUPERVISOR 01/26/2023 Hospital Encounter Uro/Ortho/GI Rachid, Chronic p ain (Primary Dx); - MD [...] Type 2 diabetes mellitus without complic ation; [place] Hematochezia Rashaun Wiley MD 01/26/2023 Travel 01/26/2023 Telephone Radiation Oncology Felisa Castillo, JCARLOS 01/26/2023 Telephone Radiation Oncology Felisa Castillo RN 01/25/2023 Nutrition Nutrition Kenya Agarwal MD Martin, Cathy A, RD 01/25/2023 Hospital Encounter Radiation Oncology Kenya Agarwal MD 01/25/2023 Telephone Radiation Oncology Felisa Csatillo, JCARLOS 01/22/2023 Nutrition Nutrition Kenya Agarwal MD Martin, Cathy A, RD 01/22/2023 Travel 01/21/2023 Infusion Infusion Services Lorena Hdez, 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 PLANT SUPERVISOR carcinoma of nasopharynx, 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) 01/21/2023 Follow-Up Thoracic Medicine Duy Rosario MD carcinoma of nasopharynx, 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) 01/21/2023 Travel 01/20/2023 Consult Pain Medicine Williams, [facility] cur rent use of opiate analgesic (Primary Dx); Rogerio, Adenocarcinoma of nasopharynx; 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; Neoplasm relate d pain (acute) (chronic) 01/20/2023 Documentation Pain Medicine Randall Ferrer 01/20/2023 Travel 01/19/2023 Clinical Support Radiation Oncology Winter Luu MD 01/19/2023 Travel 01/14/2023 Orders Only Speech Pathology Gorman, Dysphagia, Mukund oropharyngeal p enrike Cervantes, (Primary Dx) CCC-MENTAL HEALTH COORDINATOR 01/12/2023 Refill Internal Medicine Karen Ordaz Hyperten sion MD 01/11/2023 Hospital Encounter /GI Med Regulo, [...] of glucocorticoids and synthetic analogues, subsequent encounter; [facility] curre nt use of systemic steroid; Hyperlipidemia, not otherwise specified; Gastroesophagea l reflux disease; Essential hyper tension; Mucositis (ulce rative) due to antineoplastic therapy; Neoplasm relate d pain (acute) (chronic); Hypertension; 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; Insulin resista nce 01/11/2023 Travel 01/11/2023 Telephone Radiation Oncology Felisa Castillo, JCARLOS 01/08/2023 Nutrition Nutrition Kenya Agarawl MD Martin, Cathy A, RD 01/08/2023 Travel 01/07/2023 Infusion Infusion Services Lorena Hdez APRN carcinoma of nasopharynx, 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) 01/07/2023 Follow-Up Oncology Lorena Hdez c BORIS Garza carcinoma of nasopharynx, 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) 01/07/2023 Travel 01/06/2023 Infusion Infusion Services Lorena Hdez, BORIS carcinoma of nasopharynx, 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) 01/06/2023 Travel 01/05/2023 Travel 01/04/2023 Clinical Support Radiation Oncology Winter Luu MD nasopharynx (Pr imary Dx) 01/04/2023 Infusion Infusion Services Lorena Hdez, BORIS carcinoma of nasopharynx, 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) 01/04/2023 Travel 01/01/2023 Infusion Infusion Services Lorena Hdez, [employer] SUPER[employer]OR carcinoma of nasopharynx, 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) 01/01/2023 Follow-Up Thoracic Medicine Melia Rosarioid cy stic carcinoma of nasopharynx, NOS (Primary Dx); MD Vaibhav Neoplasm relate d pain (acute) (chronic) 01/01/2023 Refill Pain Medicine Geo, Neoplasm relat ed pain Brittni Benjamin RN (acute) (chroni c) 01/01/2023 Travel 12/31/2022 Telephone Thoracic Medicine Doyle, Pain med r equest and Tita Mayorga, nausea - missed RN treatment 12/31/2022 Orders Only Oncology Lorena Hdez cysti c Kayla, BORIS carcinoma of nasopharynx, 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) 12/30/2022 Hospital Encounter Pain Medicine Miguel Gordon Cancer associated pain (Primary Dx); MD Rebecca Headache, not o therwise specified 12/30/2022 Travel 12/29/2022 Hospital Encounter Ophthalmology Alcides, Adenocar cinoma of nasopharynx; MD Suzanne Sixth (abducent ) nerve palsy, left eye; Diplopia; Corneal anesthe eleazar <Left side>; Disorder of tri geminal nerve, not otherwise specified 12/29/2022 Travel 12/28/2022 Clinical Support Radiation Oncology Winter Luu MD 12/28/2022 Nutrition Nutrition Kenya Agarwal MD Martin, Cathy A, ADAM 12/28/2022 Travel 12/25/2022 Travel 12/24/2022 Infusion Infusion Services Lorena Hdez, [employer] SUPER[employer]OR carcinoma of nasopharynx, 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) 12/24/2022 Follow-Up Thoracic Medicine Kenny Power Adenoid cy stic MD Vaibhav carcinoma of [...] request) 12/23/2022 Travel 12/23/2022 Orders Only Oncology Lorena Hdez Adenoid cysti c Kayla, [employer] carcinoma of nasopharynx, 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) 12/18/2022 Orders Only Radiation Oncology Lindy Montenegro PA 12/18/2022 Orders Only Radiation Oncology Lindy Montenegro rcinoBALJINDER Mcwilliams nasopharynx 12/17/2022 Clinical Support Radiation Oncology Kenya Agarwal MD Lawrence, Holly D, RN 12/17/2022 Documentation Radiation Oncology Winter Luu MD 12/17/2022 Documentation Radiation Oncology Winter Luu MD 12/17/2022 Documentation Radiation Oncology Winter Luu MD 12/17/2022 Orders Only Oncology Lorean Hdez Adenoid cysti c Kayla, [employer] SUPER[employer]OR carcinoma of nasopharynx, 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) 12/17/2022 Travel [...] se ruled out 12/15/2022 Refill Radiation Oncology Lindy Montenegro Adenoca rcinoma of BALJINDER Sotelo nasopharynx 12/15/2022 Orders Only Pain Medicine Williams, Neoplasm rela kaylie pain Rogerio, (acute) (chron ic) (Primary Dx) 12/15/2022 Orders Only Pain Medicine Rogerio Kramer MD 12/15/2022 Orders Only Ophthalmology [facility] [place], Sixth (abducen t) Maya, OD nerve palsy, le ft eye (Primary Dx) 12/15/2022 Ophth Exam Ophthalmology Dawson Maya, OD 12/14/2022 Orders Only Dental Oncology [...] for other susp ected disease ruled out; Abiodun Adorno, Headache, not otherwise specified; Diplopia; Karissa, Hypertension; Rudy, Gastroesophage al reflux disease MD Lopez, MD Bridget Robles Norman, MD Leung, Cerena, MD 12/08/2022 Telephone Radiation Oncology Lindy Montenegro PA 12/08/2022 Orders Only Oncology Lorena Hdez Adenoid cysti c Kayla, [employer] SUPERVISOR carcinoma of nasopharynx, 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) 12/05/2022 Telephone Radiation Oncology Winter Luu MD 12/05/2022 Orders Only Radiation Oncology Winter Luu inoalexandra of MD Gini nasopharynx (Pr imary Dx) 12/04/2022 Hospital Encounter Matthew Benitez MD Hess, Jennifer Leigh, PA[employer] PL[employer] SUPERVISOR 12/04/2022 Telephone Head and Neck McAnulty, Surgery eRd Costa, [employer] PLANT SUPERVISOR 12/04/2022 Multidisciplinary Head and Neck McAnulty, Visit Surgery Red Costa, [employer] SUPERVISOR 12/04/2022 Telephone Radiation Oncology Maria Luz Cochran, RN 12/02/2022 Orders Only Radiation Oncology Lindy Montenegroca rcinoma of BALJINDER Sotelo nasopharynx (Pr imary Dx) 12/02/2022 Orders Only Radiation Oncology Winter Luu of MD Gini nasopharynx (Pr imary Dx) 11/30/2022 Ancillary Procedure Radiology Lorena Hdez Adenoc arcinoma of Kayla, [employer] SUPERVISOR nasopharynx 11/30/2022 Travel 11/27/2022 Ancillary Procedure Radiology Lindy Montenegro Adenoayan arcinoma of nasopharynx; BALJINDER Sotelo Malignant neopl asm of overlapping sites of nasopharynx 11/27/2022 Travel 11/26/2022 Consult Thoracic Medicine Zofia Rosarioci jennifer of MD Vaibhav nasopharynx 11/26/2022 Consult Radiation Oncology Winter Luucarc inoma of nasopharynx; 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 11/26/2022 Travel 11/24/2022 Lab Requisition David Nunez MD Xu, Ya, MD 11/23/2022 Telephone Oncology Ofe Bardales, RN 11/22/2022 Orders Only Dental Oncology Berkley Aguayo, Encounter for MD observation for other suspected condi tion ruled out (Prim cristina Dx) 11/20/2022 Telephone Surgical Oncology Elana Child, RN 11/17/2022 Office Visit Head and Neck Kenya Agarwal Adenocarcinoma of Surgery MD Sarah nasopharynx 11/17/2022 NPR Patient Access Kenya Agarwal MD 11/17/2022 Travel 11/16/2022 Orders Only Head and Neck McAnulty, Adenocarcinoma of Surgery Red Costa, nasopharynx (Pr imary PA[employer] SUPERVISOR Dx) 11/12/2022 Orders Only Head and Neck Honeycutt, Surgery BALJINDER Branch 11/12/2022 Orders Only Head and Neck McAnulty, Adenocarcinoma of nasopharynx (Primary Dx); Surgery Red Costa, 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 [employer]STE [employer] SUPERVISOR after 08/16/2022 Surgical History Surgery Date Site/Laterality Comments APPENDECTOMY [id number] COLONOSCOPY [id number] CHOLECYSTECTOMY [id number] KNEE ARTHROPLASTY Right SHOULDER SURGERY 050@2010 Left UPPER GASTROINTESTINAL ENDOSCOPY [id number] SECTION, CLASSIC 11/01/1984 - 10/31/1985 PARTIAL HYSTERECTOMY 03/01/2012 - 03/31/2012 MYRINGOTOMY WITH ASPIRATION AND 11/01/2019 - 10/31/2020 INSERTION PE TUBES SLEEVE GASTROPLASTY N/A Medical History Medical History Date Comments Hypertension [id number] Hyperlipidemia [id number] Allergic rhinitis [id number] Fatty liver [id number] Gastric reflux [id number] Gastric ulcer [id number] Crohn's disease [id number] Gout [id number] Type 2 diabetes mellitus with [id number] hyperglycemia Anxiety [id number] Chronic obstructive pulmonary disease On home supplemental [...] at Date Recorded Female 11/12/2022 2:07 PM [employer] Job Start Date Occupation Industry Not on [...] Treatment Date Type Specialty Care Team Description 08/27/2023 Lab Lab No Andrade MD [address] [place], [place] [address] (Wo rk) 10/27/2023 Lab Lab No Andrade MD [address] [place], [place] [address] (Wo rk) 11/03/2023 Telemedicine Endocrinology Marily Garcia, BORIS [address], [place] [address] (Wo rk) Health Maintenance Due Date Last Done Comments COVID-19 Vaccination (4 - Moderna 09/05/2021 07/11/2021, , risk series) 12/03/2020 Medical Devices Implanted Type Area Sales Development Associate Device Shelf Model / Identifier Expiration Serial [...] the results section. CONTROLLED SUBSTANCE Routine 01/20/2023 intermediate manager current Re sults for MONITORING PANEL, URINE [...] Adenoid cystic Result s for 8:28 AM [employer] carcinoma of this procedure nasopharynx, NOS are in the results section. Results CBC Routine 01/07/2023 Adenoid cystic Results for 8:28 AM [employer] carcinoma of this procedure nasopharynx, NOS are in the results section. FRACTIONATED BILIRUBIN Routine 01/07/2023 Adenoid cystic Res ults for 8:28 AM [employer] carcinoma of this procedure nasopharynx, NOS are in the results section. TOTAL PROTEIN Routine 01/07/2023 Adenoid cystic Results for 8:28 AM [employer] carcinoma of this procedure nasopharynx, NOS are in the results section. ASPARTATE AMINOTRANSFERASE Routine 01/07/2023 Adenoid cystic Results for 8:28 AM [employer] carcinoma of this procedure nasopharynx, NOS are in the results section. ALANINE AMINOTRANSFERASE Routine 01/07/2023 Adenoid cystic R esults for 8:28 AM [employer] carcinoma of this procedure nasopharynx, NOS are in the results section. ALKALINE PHOSPHATASE Routine 01/07/2023 Adenoid cystic Resul ts for 8:28 AM [employer] carcinoma of this procedure nasopharynx, NOS are in the results section. ALBUMIN LEVEL Routine 01/07/2023 Adenoid cystic Results for 8:28 AM [employer] carcinoma of this procedure nasopharynx, NOS are in the results section. CALCIUM LEVEL TOTAL Routine 01/07/2023 Adenoid cystic Result s for 8:28 AM [employer] carcinoma of this procedure nasopharynx, NOS are in the results section. .GLOMERULAR FILTRATION Routine 01/07/2023 Adenoid cystic Res ults for RATE 8:28 AM [employer] carcinoma of this procedure nasopharynx, NOS are in the results section. SERUM CREATININE Routine 01/07/2023 Adenoid cystic Results f or 8:28 AM [employer] carcinoma of this procedure nasopharynx, NOS are in the results section. ELECTROLYTE PANEL Routine 01/07/2023 Adenoid cystic Results for 8:28 AM [employer] carcinoma of this procedure nasopharynx, NOS are in the results section. BLOOD UREA NITROGEN Routine 01/07/2023 Adenoid cystic Result s for 8:28 AM [employer] carcinoma of this procedure nasopharynx, NOS are in the results section. GLUCOSE LEVEL Routine 01/07/2023 Adenoid cystic Results for 8:28 AM [employer] carcinoma of this procedure nasopharynx, NOS are in the results section. PHOSPHORUS LEVEL Routine 01/07/2023 Adenoid cystic Results f or 8:28 AM [employer] carcinoma of this procedure nasopharynx, NOS are in the results section. MAGNESIUM LEVEL Routine 01/07/2023 Adenoid cystic Results fo r 8:28 AM [employer] carcinoma of this procedure nasopharynx, NOS are in the results section. COMPLETE BLOOD COUNT W/ Routine 01/07/2023 Adenoid cystic DIFFERENTIAL 8:28 AM [employer] carcinoma of nasopharynx, NOS COMPREHENSIVE METABOLIC Routine 01/07/2023 Adenoid cystic PANEL 8:28 AM [employer] carcinoma of nasopharynx, NOS MANUAL DIFFERENTIAL Routine 01/01/2023 Adenoid cystic Result s for 8:26 AM [employer] carcinoma of this procedure nasopharynx, NOS are in the results section. Results CBC Routine 01/01/2023 Adenoid cystic Results for 8:26 AM [employer] carcinoma of this procedure nasopharynx, NOS are in the results section. FRACTIONATED BILIRUBIN Routine 01/01/2023 Adenoid cystic Res ults for 8:26 AM [employer] carcinoma of this procedure nasopharynx, NOS are in the results section. TOTAL PROTEIN Routine 01/01/2023 Adenoid cystic Results for 8:26 AM [employer] carcinoma of this procedure nasopharynx, NOS are in the results section. ASPARTATE AMINOTRANSFERASE Routine 01/01/2023 Adenoid cystic Results for 8:26 AM [employer] carcinoma of this procedure nasopharynx, NOS are in the results section. ALANINE AMINOTRANSFERASE Routine 01/01/2023 Adenoid cystic R esults for 8:26 AM [employer] carcinoma of this procedure nasopharynx, NOS are in the results section. ALKALINE PHOSPHATASE Routine 01/01/2023 Adenoid cystic Resul ts for 8:26 AM [employer] carcinoma of this procedure nasopharynx, NOS are in the results section. ALBUMIN LEVEL Routine 01/01/2023 Adenoid cystic Results for 8:26 AM [employer] carcinoma of this procedure nasopharynx, NOS are in the results section. CALCIUM LEVEL TOTAL Routine 01/01/2023 Adenoid cystic Result s for 8:26 AM [employer] carcinoma of this procedure nasopharynx, NOS are in the results section. .GLOMERULAR FILTRATION Routine 01/01/2023 Adenoid cystic Res ults for RATE 8:26 AM [employer] carcinoma of this procedure nasopharynx, NOS are in the results section. SERUM CREATININE Routine 01/01/2023 Adenoid cystic Results f or 8:26 AM [employer] carcinoma of this procedure nasopharynx, NOS are in the results section. ELECTROLYTE PANEL Routine 01/01/2023 Adenoid cystic Results for 8:26 AM [employer] carcinoma of this procedure nasopharynx, NOS are in the results section. BLOOD UREA NITROGEN Routine 01/01/2023 Adenoid cystic Result s for 8:26 AM [employer] carcinoma of this procedure nasopharynx, NOS are in the results section. GLUCOSE LEVEL Routine 01/01/2023 Adenoid cystic Results for 8:26 AM [employer] carcinoma of this procedure nasopharynx, NOS are in the results section. PHOSPHORUS LEVEL Routine 01/01/2023 Adenoid cystic Results f or 8:26 AM [employer] carcinoma of this procedure nasopharynx, NOS are in the results section. MAGNESIUM LEVEL Routine 01/01/2023 Adenoid cystic Results fo r 8:26 AM [employer] carcinoma of this procedure nasopharynx, NOS are in the results section. COMPLETE BLOOD COUNT W/ Routine 01/01/2023 Adenoid cystic DIFFERENTIAL 8:26 AM [employer] carcinoma of nasopharynx, NOS COMPREHENSIVE METABOLIC Routine 01/01/2023 Adenoid cystic PANEL 8:26 AM [employer] carcinoma of nasopharynx, NOS [place] [employer], Routine 12/29/2022 Sixth (abducent) R esults for INTERMEDIATE - OU - BOTH 10:51 AM [employer] nerve palsy, lef t this procedure EYES eye are in the results section. OCT, OPTIC NERVE - OU - Routine 12/29/2022 Sixth (abducent) Results for BOTH EYES 10:43 AM [employer] nerve palsy, left this proce dure eye are in the results section. OCT, RETINA - OU - BOTH Routine 12/29/2022 Sixth (abducent) Results for EYES 10:43 AM [employer] nerve palsy, left this proce dure eye are in the results section. MANUAL DIFFERENTIAL Routine 12/24/2022 Adenoid cystic Result s for 9:16 AM [employer] carcinoma of this procedure nasopharynx, NOS are in the results section. Results CBC Routine 12/24/2022 Adenoid cystic Results for 9:16 AM [employer] carcinoma of this procedure nasopharynx, NOS are in the results section. FRACTIONATED BILIRUBIN Routine 12/24/2022 Adenoid cystic Res ults for 9:16 AM [employer] carcinoma of this procedure nasopharynx, NOS are in the results section. TOTAL PROTEIN Routine 12/24/2022 Adenoid cystic Results for 9:16 AM [employer] carcinoma of this procedure nasopharynx, NOS are in the results section. ASPARTATE AMINOTRANSFERASE Routine 12/24/2022 Adenoid cystic Results for 9:16 AM [employer] carcinoma of this procedure nasopharynx, NOS are in the results section. ALANINE AMINOTRANSFERASE Routine 12/24/2022 Adenoid cystic R esults for 9:16 AM [employer] carcinoma of this procedure nasopharynx, NOS are in the results section. ALKALINE PHOSPHATASE Routine 12/24/2022 Adenoid cystic Resul ts for 9:16 AM [employer] carcinoma of this procedure nasopharynx, NOS are in the results section. ALBUMIN LEVEL Routine 12/24/2022 Adenoid cystic Results for 9:16 AM [employer] carcinoma of this procedure nasopharynx, NOS are in the results section. CALCIUM LEVEL TOTAL Routine 12/24/2022 Adenoid cystic Result s for 9:16 AM [employer] carcinoma of this procedure nasopharynx, NOS are in the results section. .GLOMERULAR FILTRATION Routine 12/24/2022 Adenoid cystic Res ults for RATE 9:16 AM [employer] carcinoma of this procedure nasopharynx, NOS are in the results section. SERUM CREATININE Routine 12/24/2022 Adenoid cystic Results f or 9:16 AM [employer] carcinoma of this procedure nasopharynx, NOS are in the results section. ELECTROLYTE PANEL Routine 12/24/2022 Adenoid cystic Results for 9:16 AM [employer] carcinoma of this procedure nasopharynx, NOS are in the results section. BLOOD UREA NITROGEN Routine 12/24/2022 Adenoid cystic Result s for 9:16 AM [employer] carcinoma of this procedure nasopharynx, NOS are in the results section. GLUCOSE LEVEL Routine 12/24/2022 Adenoid cystic Results for 9:16 AM [employer] carcinoma of this procedure nasopharynx, NOS are in the results section. PHOSPHORUS LEVEL Routine 12/24/2022 Adenoid cystic Results f or 9:16 AM [employer] carcinoma of this procedure nasopharynx, NOS are in the results section. MAGNESIUM LEVEL Routine 12/24/2022 Adenoid cystic Results fo r 9:16 AM [employer] carcinoma of this procedure nasopharynx, NOS are in the results section. COMPLETE BLOOD COUNT W/ Routine 12/24/2022 Adenoid cystic DIFFERENTIAL 9:16 AM [employer] carcinoma of nasopharynx, NOS COMPREHENSIVE METABOLIC Routine 12/24/2022 Adenoid cystic PANEL 9:16 AM [employer] carcinoma of nasopharynx, NOS COVID-19 (SARS-COV-2) PCR Routine 12/23/2022 Suspected COVID -19 Results for - ASYMPTOMATIC - MC 12:01 PM [employer] this pro cedure are in the results section. POC GLUCOSE SCREEN Routine 12/15/2022 Results f or 6:07 PM [employer] this procedure are in the results section. POC GLUCOSE SCREEN Routine 12/15/2022 Results f or 12:52 PM [employer] this procedure are in the results section. OCT, OPTIC NERVE - OU - Routine 12/15/2022 Diplopia Resu lts for BOTH EYES 10:37 AM [employer] this procedure are in the results section. OCT, RETINA - OU - BOTH Routine 12/15/2022 Diplopia Resu lts for EYES 10:37 AM [employer] this procedure are in the results section. FUNDUS PHOTOS - OU - BOTH Routine 12/15/2022 Diplopia Re sults for EYES 10:37 AM [employer] this procedure are in the results section. 3D DENTAL IMAGING (ICAT) Routine 12/15/2022 Encounter for Re sults for 8:42 AM [employer] observation for this procedu re other suspected are in the disease ruled out results section. POC GLUCOSE SCREEN Routine 12/15/2022 Results f or 7:19 AM [employer] this procedure are in the results section. POC GLUCOSE SCREEN Routine 12/15/2022 Results f or 6:12 AM [employer] this procedure are in the results section. MANUAL DIFFERENTIAL AM 12/15/2022 Results for 3:44 AM [employer] this procedure are in the results section. Results CBC AM 12/15/2022 Results for 3:44 AM [employer] this procedure are in the results section. CALCIUM LEVEL TOTAL AM 12/15/2022 Results for 3:44 AM [employer] this procedure are in the results section. .GLOMERULAR FILTRATION AM 12/15/2022 Resul ts for RATE 3:44 AM [employer] this procedure are in the results section. SERUM CREATININE AM 12/15/2022 Results for 3:44 AM [employer] this procedure are in the results section. ELECTROLYTE PANEL AM 12/15/2022 Results fo r 3:44 AM [employer] this procedure are in the results section. BLOOD UREA NITROGEN AM 12/15/2022 Results for 3:44 AM [employer] this procedure are in the results section. GLUCOSE LEVEL AM 12/15/2022 Results for 3:44 AM [employer] this procedure are in the results section. COMPLETE BLOOD COUNT W/ AM 12/15/2022 DIFFERENTIAL 3:44 AM [employer] PHOSPHORUS LEVEL AM 12/15/2022 Results for 3:44 AM [employer] this procedure are in the results section. MAGNESIUM LEVEL AM 12/15/2022 Results for 3:44 AM [employer] this procedure are in the results section. BASIC METABOLIC PANEL, AM 12/15/2022 CALCIUM TOTAL 3:44 AM [employer] POC GLUCOSE SCREEN Routine 12/15/2022 Results f or 2:28 AM [employer] this procedure are in the results section. POC GLUCOSE SCREEN Routine 12/14/2022 Results f or 10:04 PM [employer] this procedure are in the results section. POC GLUCOSE SCREEN Routine 12/14/2022 Results f or 5:26 PM [employer] this procedure are in the results section. POC GLUCOSE SCREEN Routine 12/14/2022 Results f or 4:14 PM [employer] this procedure are in the results section. FL MODIFIED BARIUM SWALLOW Routine 12/14/2022 R esults for W SPEECH 2:37 PM [employer] this procedure are in the results section. POC GLUCOSE SCREEN Routine 12/14/2022 Results f or 12:08 PM [employer] this procedure are in the results section. GENERAL LABORATORY ADD ON Routine 12/14/2022 Re sults for TEST 8:03 AM [employer] this procedure are in the results section. POC GLUCOSE SCREEN Routine 12/14/2022 Results f or 7:25 AM [employer] this procedure are in the results section. POC GLUCOSE SCREEN Routine 12/14/2022 Results f or 5:55 AM [employer] this procedure are in the results section. FRACTIONATED BILIRUBIN AM 12/14/2022 Resul ts for 4:46 AM [employer] this procedure are in the results section. TOTAL PROTEIN AM 12/14/2022 Results for 4:46 AM [employer] this procedure are in the results section. ASPARTATE AMINOTRANSFERASE AM 12/14/2022 R esults for 4:46 AM [employer] this procedure are in the results section. ALANINE AMINOTRANSFERASE AM 12/14/2022 Res ults for 4:46 AM [employer] this procedure are in the results section. ALKALINE PHOSPHATASE AM 12/14/2022 Results for 4:46 AM [employer] this procedure are in the results section. ALBUMIN LEVEL AM 12/14/2022 Results for 4:46 AM [employer] this procedure are in the results section. MANUAL DIFFERENTIAL AM 12/14/2022 Results for 4:46 AM [employer] this procedure are in the results section. Results CBC AM 12/14/2022 Results for 4:46 AM [employer] this procedure are in the results section. CALCIUM LEVEL TOTAL AM 12/14/2022 Results for 4:46 AM [employer] this procedure are in the results section. .GLOMERULAR FILTRATION AM 12/14/2022 Resul ts for RATE 4:46 AM [employer] this procedure are in the results section. SERUM CREATININE AM 12/14/2022 Results for 4:46 AM [employer] this procedure are in the results section. ELECTROLYTE PANEL AM 12/14/2022 Results fo r 4:46 AM [employer] this procedure are in the results section. BLOOD UREA NITROGEN AM 12/14/2022 Results for 4:46 AM [employer] this procedure are in the results section. GLUCOSE LEVEL AM 12/14/2022 Results for 4:46 AM [employer] this procedure are in the results section. COMPLETE BLOOD COUNT W/ AM 12/14/2022 DIFFERENTIAL 4:46 AM [employer] PHOSPHORUS LEVEL AM 12/14/2022 Results for 4:46 AM [employer] this procedure are in the results section. MAGNESIUM LEVEL AM 12/14/2022 Results for 4:46 AM [employer] this procedure are in the results section. BASIC METABOLIC PANEL, AM 12/14/2022 CALCIUM TOTAL 4:46 AM [employer] POC GLUCOSE SCREEN Routine 12/14/2022 Results f or 1:36 AM [employer] this procedure are in the results section. POC GLUCOSE SCREEN Routine 12/13/2022 Results f or 9:56 PM [facility] this procedure are in the results section. POC GLUCOSE SCREEN Routine 12/13/2022 Results f or 6:31 PM [facility] this procedure are in the results section. POC GLUCOSE SCREEN Routine 12/13/2022 Results f or 1:24 PM [facility] this procedure are in the results section. POC GLUCOSE SCREEN Routine 12/13/2022 Results f or 8:02 AM [facility] this procedure are in the results section. POC GLUCOSE SCREEN Routine 12/13/2022 Results f or 5:58 AM [facility] this procedure are in the results section. POC GLUCOSE SCREEN Routine 12/13/2022 Results f or 3:24 AM [facility] this procedure are in the results section. MANUAL DIFFERENTIAL AM 12/13/2022 Results for 3:12 AM [facility] this procedure are in the results section. Results CBC AM 12/13/2022 Results for 3:12 AM [facility] this procedure are in the results section. CALCIUM LEVEL TOTAL AM 12/13/2022 Results for 3:12 AM [facility] this procedure are in the results section. .GLOMERULAR FILTRATION AM 12/13/2022 Resul ts for RATE 3:12 AM [facility] this procedure are in the results section. SERUM CREATININE AM 12/13/2022 Results for 3:12 AM [facility] this procedure are in the results section. ELECTROLYTE PANEL AM 12/13/2022 Results fo r 3:12 AM [facility] this procedure are in the results section. BLOOD UREA NITROGEN AM 12/13/2022 Results for 3:12 AM [facility] this procedure are in the results section. GLUCOSE LEVEL AM 12/13/2022 Results for 3:12 AM [facility] this procedure are in the results section. COMPLETE BLOOD COUNT W/ AM 12/13/2022 DIFFERENTIAL 3:12 AM [facility] PHOSPHORUS LEVEL AM 12/13/2022 Results for 3:12 AM [facility] this procedure are in the results section. MAGNESIUM LEVEL AM 12/13/2022 Results for 3:12 AM [facility] this procedure are in the results section. BASIC METABOLIC PANEL, AM 12/13/2022 CALCIUM TOTAL 3:12 AM [facility] POC GLUCOSE SCREEN Routine 12/12/2022 Results f or 9:43 PM [facility] this procedure are in the results section. POC GLUCOSE SCREEN Routine 12/12/2022 Results f or 6:16 PM [facility] this procedure are in the results section. POC GLUCOSE SCREEN Routine 12/12/2022 Results f or 12:52 PM [facility] this procedure are in the results section. POC GLUCOSE SCREEN Routine 12/12/2022 Results f or 7:47 AM [facility] this procedure are in the results section. POC GLUCOSE SCREEN Routine 12/12/2022 Results f or 5:52 AM [facility] this procedure are in the results section. MANUAL DIFFERENTIAL AM 12/12/2022 Results for 4:30 AM [facility] this procedure are in the results section. Results CBC AM 12/12/2022 Results for 4:30 AM [facility] this procedure are in the results section. CALCIUM LEVEL TOTAL AM 12/12/2022 Results for 4:30 AM [facility] this procedure are in the results section. .GLOMERULAR FILTRATION AM 12/12/2022 Resul ts for RATE 4:30 AM [facility] this procedure are in the results section. SERUM CREATININE AM 12/12/2022 Results for 4:30 AM [facility] this procedure are in the results section. ELECTROLYTE PANEL AM 12/12/2022 Results fo r 4:30 AM [facility] this procedure are in the results section. BLOOD UREA NITROGEN AM 12/12/2022 Results for 4:30 AM [facility] this procedure are in the results section. GLUCOSE LEVEL AM 12/12/2022 Results for 4:30 AM [facility] this procedure are in the results section. COMPLETE BLOOD COUNT W/ AM 12/12/2022 DIFFERENTIAL 4:30 AM [facility] PHOSPHORUS LEVEL AM 12/12/2022 Results for 4:30 AM [facility] this procedure are in the results section. MAGNESIUM LEVEL AM 12/12/2022 Results for 4:30 AM [facility] this procedure are in the results section. BASIC METABOLIC PANEL, AM 12/12/2022 CALCIUM TOTAL 4:30 AM [facility] POC GLUCOSE SCREEN Routine 12/12/2022 Results f or 2:06 AM [facility] this procedure are in the results section. POC GLUCOSE SCREEN Routine 12/11/2022 Results f or 10:01 PM [facility] this procedure are in the results section. LACTIC ACID, VENOUS Timed Study 12/11/2022 Results for 9:50 PM [facility] this procedure are in the results section. LIPASE LEVEL STAT 12/11/2022 Results for 6:21 PM [facility] this procedure are in the results section. VENOUS BLOOD GAS STAT 12/11/2022 Results for 6:21 PM [facility] this procedure are in the results section. POC GLUCOSE SCREEN Routine 12/11/2022 Results f or 6:10 PM [facility] this procedure are in the results section. GENERAL LABORATORY ADD ON Routine 12/11/2022 Re sults for TEST 5:39 PM [facility] this procedure are in the results section. KETONE BODIES QUALITATIVE STAT 12/11/2022 Re sults for 5:19 PM [facility] this procedure are in the results section. POC GLUCOSE SCREEN Routine 12/11/2022 Results f or 4:51 PM [facility] this procedure are in the results section. LIPASE LEVEL STAT 12/11/2022 Results for 4:33 PM [facility] this procedure are in the results section. ELECTROLYTE PANEL STAT 12/11/2022 Results fo r 4:33 PM [facility] this procedure are in the results section. LACTIC ACID, VENOUS Timed Study 12/11/2022 Results for 4:33 PM [facility] this procedure are in the results section. POC GLUCOSE SCREEN Routine 12/11/2022 Results f or 3:34 PM [facility] this procedure are in the results section. POC CRITICAL Routine 12/11/2022 Results for 3:34 PM [facility] this procedure are in the results section. POC GLUCOSE SCREEN Routine 12/11/2022 Results f or 2:33 PM [facility] this procedure are in the results section. POC CRITICAL Routine 12/11/2022 Results for 2:33 PM [facility] this procedure are in the results section. POC GLUCOSE SCREEN Routine 12/11/2022 Results f or 12:35 PM [facility] this procedure are in the results section. POC GLUCOSE SCREEN Routine 12/11/2022 Results f or 8:14 AM [facility] this procedure are in the results section. LACTIC ACID, VENOUS Routine 12/11/2022 Results for 4:37 AM [facility] this procedure are in the results section. MANUAL DIFFERENTIAL AM 12/11/2022 Results for 4:30 AM [facility] this procedure are in the results section. Results CBC AM 12/11/2022 Results for 4:30 AM [facility] this procedure are in the results section. CALCIUM LEVEL TOTAL AM 12/11/2022 Results for 4:30 AM [facility] this procedure are in the results section. .GLOMERULAR FILTRATION AM 12/11/2022 Resul ts for RATE 4:30 AM [facility] this procedure are in the results section. SERUM CREATININE AM 12/11/2022 Results for 4:30 AM [facility] this procedure are in the results section. ELECTROLYTE PANEL AM 12/11/2022 Results fo r 4:30 AM [facility] this procedure are in the results section. BLOOD UREA NITROGEN AM 12/11/2022 Results for 4:30 AM [facility] this procedure are in the results section. GLUCOSE LEVEL AM 12/11/2022 Results for 4:30 AM [facility] this procedure are in the results section. COMPLETE BLOOD COUNT W/ AM 12/11/2022 DIFFERENTIAL 4:30 AM [facility] PHOSPHORUS LEVEL AM 12/11/2022 Results for 4:30 AM [facility] this procedure are in the results section. MAGNESIUM LEVEL AM 12/11/2022 Results for 4:30 AM [facility] this procedure are in the results section. BASIC METABOLIC PANEL, AM 12/11/2022 CALCIUM TOTAL 4:30 AM [facility] POC GLUCOSE SCREEN Routine 12/11/2022 Results f or 1:20 AM [facility] this procedure are in the results section. POC GLUCOSE SCREEN Routine 12/10/2022 Results f or 10:00 PM [facility] this procedure are in the results section. POC GLUCOSE SCREEN Routine 12/10/2022 Results f or 6:29 PM [facility] this procedure are in the results section. POC GLUCOSE SCREEN Routine 12/10/2022 Results f or 5:20 PM [facility] this procedure are in the results section. CT HEAD WO CONTRAST STAT 12/10/2022 Results for 3:21 PM [facility] this procedure are in the results section. POC GLUCOSE SCREEN Routine 12/10/2022 Results f or 1:45 PM [facility] this procedure are in the results section. POC GLUCOSE SCREEN Routine 12/10/2022 Results f or 11:35 AM [facility] this procedure are in the results section. POC GLUCOSE SCREEN Routine 12/10/2022 Results f or 7:30 AM [facility] this procedure are in the results section. URINALYSIS WITH Routine 12/10/2022 Results for MICROSCOPIC IF INDICATED 6:13 AM [facility] thi s procedure are in the results section. URINE CULTURE Routine 12/10/2022 Results for 6:13 AM [facility] this procedure are in the results section. MANUAL DIFFERENTIAL STAT 12/10/2022 Results for 5:13 AM [facility] this procedure are in the results section. Results CBC STAT 12/10/2022 Results for 5:13 AM [facility] this procedure are in the results section. CALCIUM LEVEL TOTAL AM 12/10/2022 Results for 5:13 AM [facility] this procedure are in the results section. .GLOMERULAR FILTRATION AM 12/10/2022 Resul ts for RATE 5:13 AM [facility] this procedure are in the results section. SERUM CREATININE AM 12/10/2022 Results for 5:13 AM [facility] this procedure are in the results section. ELECTROLYTE PANEL AM 12/10/2022 Results fo r 5:13 AM [facility] this procedure are in the results section. BLOOD UREA NITROGEN AM 12/10/2022 Results for 5:13 AM [facility] this procedure are in the results section. GLUCOSE LEVEL AM 12/10/2022 Results for 5:13 AM [facility] this procedure are in the results section. HEMOGLOBIN A1C Routine 12/10/2022 Results for 5:13 AM [facility] this procedure are in the results section. COMPLETE BLOOD COUNT W/ AM 12/10/2022 DIFFERENTIAL 5:13 AM [facility] PHOSPHORUS LEVEL AM 12/10/2022 Results for 5:13 AM [facility] this procedure are in the results section. MAGNESIUM LEVEL AM 12/10/2022 Results for 5:13 AM [facility] this procedure are in the results section. BASIC METABOLIC PANEL, AM 12/10/2022 CALCIUM TOTAL 5:13 AM [facility] POC GLUCOSE SCREEN Routine 12/10/2022 Results f or 1:38 AM [facility] this procedure are in the results section. POC GLUCOSE SCREEN Routine 12/09/2022 Results f or 11:18 PM [facility] this procedure are in the results section. POC VENOUS BLOOD GAS + Routine 12/09/2022 Resul ts for LACTATE 9:36 PM [facility] this procedure are in the results section. FRACTIONATED BILIRUBIN Routine 12/09/2022 Resul ts for 6:01 PM [facility] this procedure are in the results section. TOTAL PROTEIN Routine 12/09/2022 Results for 6:01 PM [facility] this procedure are in the results section. ASPARTATE AMINOTRANSFERASE Routine 12/09/2022 R esults for 6:01 PM [facility] this procedure are in the results section. ALANINE AMINOTRANSFERASE Routine 12/09/2022 Res ults for 6:01 PM [facility] this procedure are in the results section. ALKALINE PHOSPHATASE Routine 12/09/2022 Results for 6:01 PM [facility] this procedure are in the results section. ALBUMIN LEVEL Routine 12/09/2022 Results for 6:01 PM [facility] this procedure are in the results section. CALCIUM LEVEL TOTAL Routine 12/09/2022 Results for 6:01 PM [facility] this procedure are in the results section. .GLOMERULAR FILTRATION Routine 12/09/2022 Resul ts for RATE 6:01 PM [facility] this procedure are in the results section. SERUM CREATININE Routine 12/09/2022 Results for 6:01 PM [facility] this procedure are in the results section. ELECTROLYTE PANEL Routine 12/09/2022 Results fo r 6:01 PM [facility] this procedure are in the results section. BLOOD UREA NITROGEN Routine 12/09/2022 Results for 6:01 PM [facility] this procedure are in the results section. GLUCOSE LEVEL Routine 12/09/2022 Results for 6:01 PM [facility] this procedure are in the results section. MANUAL DIFFERENTIAL STAT 12/09/2022 Results for 6:01 PM [facility] this procedure are in the results section. Results CBC STAT 12/09/2022 Results for 6:01 PM [facility] this procedure are in the results section. LACTATE DEHYDROGENASE Routine 12/09/2022 Result s for 6:01 PM [facility] this procedure are in the results section. APTT Routine 12/09/2022 Results for 6:01 PM [facility] this procedure are in the results section. PROTHROMBIN TIME Routine 12/09/2022 Results for 6:01 PM [facility] this procedure are in the results section. PHOSPHORUS LEVEL Routine 12/09/2022 Results for 6:01 PM [facility] this procedure are in the results section. MAGNESIUM LEVEL Routine 12/09/2022 Results for 6:01 PM [facility] this procedure are in the results section. COMPREHENSIVE METABOLIC Routine 12/09/2022 PANEL 6:01 PM [facility] COMPLETE BLOOD COUNT W/ Routine 12/09/2022 DIFFERENTIAL 6:01 PM [facility] AMMONIA LEVEL Routine 12/09/2022 Results for 6:01 PM [facility] this procedure are in the results section. COVID-19 (SARS-COV-2)PCR Routine 12/09/2022 R esults for - ASYMPTOMATIC - LT 6:01 PM [facility] this pro cedure are in the results section. HP MOLECULAR BLOOD Routine 12/04/2022 Results f or COLLECTION 10:56 AM [facility] this procedure are in the results section. HP SOLID TUMOR GENOMIC Routine 12/04/2022 ASSAY FUSIONS 2018 10:56 AM [facility] INTERPRETATION AND REPORT HP MDA CHRISTINE MUTATION Routine 12/04/2022 ANALYSIS PRECISION PANEL 10:56 AM [facility] REPORT MRI SKULL BASE WITH AND Routine 11/30/2022 Adenocarcinoma of Results for WITHOUT CONTRAST 11:12 AM [facility] nasopharynx this proced ure are in the results section. PETCT F18 FDG Routine 11/27/2022 Adenocarcinoma of Results f or (FLUORODEOXYGLUCOSE) WITH 3:57 PM [facility] nasoph arynx this procedure CONTRAST Malignant neoplasm are in th e of overlapping results sites of section. nasopharynx POC GLUCOSE SCREEN Routine 11/27/2022 Results f or 1:06 PM [facility] this procedure are in the results section. POC GLUCOSE SCREEN Routine 11/27/2022 Results f or 12:29 PM [facility] this procedure are in the results section. FRACTIONATED BILIRUBIN Routine 11/26/2022 Adenocarcinoma of Results for 1:07 PM [facility] nasopharynx this procedure are in the results section. TOTAL PROTEIN Routine 11/26/2022 Adenocarcinoma of Results f or 1:07 PM [facility] nasopharynx this procedure are in the results section. ASPARTATE AMINOTRANSFERASE Routine 11/26/2022 Adenocarcinoma of Results for 1:07 PM [facility] nasopharynx this procedure are in the results section. ALANINE AMINOTRANSFERASE Routine 11/26/2022 Adenocarcinoma o f Results for 1:07 PM [facility] nasopharynx this procedure are in the results section. ALKALINE PHOSPHATASE Routine 11/26/2022 Adenocarcinoma of Re sults for 1:07 PM [facility] nasopharynx this procedure are in the results section. ALBUMIN LEVEL Routine 11/26/2022 Adenocarcinoma of Results f or 1:07 PM [facility] nasopharynx this procedure are in the results section. CALCIUM LEVEL TOTAL Routine 11/26/2022 Adenocarcinoma of Res ults for 1:07 PM [facility] nasopharynx this procedure are in the results section. .GLOMERULAR FILTRATION Routine 11/26/2022 Adenocarcinoma of Results for RATE 1:07 PM [facility] nasopharynx this procedure are in the results section. SERUM CREATININE Routine 11/26/2022 Adenocarcinoma of Result s for 1:07 PM [facility] nasopharynx this procedure are in the results section. ELECTROLYTE PANEL Routine 11/26/2022 Adenocarcinoma of Resul ts for 1:07 PM [facility] nasopharynx this procedure are in the results section. BLOOD UREA NITROGEN Routine 11/26/2022 Adenocarcinoma of Res ults for 1:07 PM [facility] nasopharynx this procedure are in the results section. GLUCOSE LEVEL Routine 11/26/2022 Adenocarcinoma of Results f or 1:07 PM [facility] nasopharynx this procedure are in the results section. MANUAL DIFFERENTIAL Routine 11/26/2022 Adenocarcinoma of Res ults for 1:07 PM [facility] nasopharynx this procedure are in the results section. Results CBC Routine 11/26/2022 Adenocarcinoma of Results fo r 1:07 PM [facility] nasopharynx this procedure are in the results section. PROTHROMBIN TIME Routine 11/26/2022 Adenocarcinoma of Result s for 1:07 PM [facility] nasopharynx this procedure are in the results section. APTT Routine 11/26/2022 Adenocarcinoma of Results fo r 1:07 PM [facility] nasopharynx this procedure are in the results section. THYROID STIMULATING Routine 11/26/2022 Adenocarcinoma of Res ults for HORMONE 1:07 PM [facility] nasopharynx this procedure are in the results section. VITAMIN D 25 HYDROXY LEVEL Routine 11/26/2022 Adenocarcinoma of Results for 1:07 PM [facility] nasopharynx this procedure are in the results section. URIC ACID Routine 11/26/2022 Adenocarcinoma of Results fo r 1:07 PM [facility] nasopharynx this procedure are in the results section. PHOSPHORUS LEVEL Routine 11/26/2022 Adenocarcinoma of Result s for 1:07 PM [facility] nasopharynx this procedure are in the results section. MAGNESIUM LEVEL Routine 11/26/2022 Adenocarcinoma of Results for 1:07 PM [facility] nasopharynx this procedure are in the results section. LACTATE DEHYDROGENASE Routine 11/26/2022 Adenocarcinoma of R esults for 1:07 PM [facility] nasopharynx this procedure are in the results section. FREE THYROXINE Routine 11/26/2022 Adenocarcinoma of Results for 1:07 PM [facility] nasopharynx this procedure are in the results section. COMPREHENSIVE METABOLIC Routine 11/26/2022 Adenocarcinoma of PANEL 1:07 PM [facility] nasopharynx COMPLETE BLOOD COUNT W/ Routine 11/26/2022 Adenocarcinoma of DIFFERENTIAL 1:07 PM [facility] nasopharynx NGS BLOOD CONTROL Routine 11/26/2022 Adenocarcinoma of Re sults for 1:07 PM [facility] nasopharynx this procedure are in the results section. AP IHC HER2/ARCENIO MATERIAL Routine 11/26/2022 Adenocarcinoma o f REQUEST 12:43 PM [facility] nasopharynx AP IHC PD-L1 MATERIAL Routine 11/26/2022 Adenocarcinoma of REQUEST 12:43 PM [facility] nasopharynx ANA CRISTINA GRIFFIN PTEN MUTATION Routine 11/26/2022 Adenocarcinoma of Res ults for MATERIAL REQUEST 12:43 PM [facility] nasopharynx this proced ure are in the results section. ANA CRISTINA GRIFFIN MTOR MATERIAL Routine 11/26/2022 Adenocarcinoma of Res ults for REQUEST 12:43 PM [facility] nasopharynx this procedure are in the results section. ANA CRISTINA GRIFFIN ERBB2 MUTATION Routine 11/26/2022 Adenocarcinoma of Re sults for ANALAYSIS MATERIAL REQUEST 12:43 PM [facility] nasopharynx t his procedure are in the results section. ANA CRISTINA GRIFFIN EGFR MUTATION Routine 11/26/2022 Adenocarcinoma of Res ults for MATERIAL REQUEST 12:43 PM [facility] nasopharynx this proced ure are in the results section. ANA CRISTINA GRIFFIN ALK MUTATION Routine 11/26/2022 Adenocarcinoma of Resu lts for ANALAYSIS MATERIAL REQUEST 12:43 PM [facility] nasopharynx t his procedure are in the results section. ANA CRISTINA GRIFFIN NTRK3 FUSION Routine 11/26/2022 Adenocarcinoma of Resu lts for ANALYSIS MATERIAL REQUEST 12:43 PM [facility] nasopharynx th is procedure are in the results section. ANA CRISTINA GRIFFIN NTRK2 FUSION Routine 11/26/2022 Adenocarcinoma of Resu lts for ANALYSIS MATERIAL REQUEST 12:43 PM [facility] nasopharynx th is procedure are in the results section. ANA CRISTINA GRIFFIN NTRK1 FUSION Routine 11/26/2022 Adenocarcinoma of Resu lts for ANALYSIS MATERIAL REQUEST 12:43 PM [facility] nasopharynx th is procedure are in the results section. MANUAL DIFFERENTIAL Routine 11/17/2022 Adenocarcinoma of Res ults for 12:11 PM [facility] nasopharynx this procedure are in the results section. Results CBC Routine 11/17/2022 Adenocarcinoma of Results fo r 12:11 PM [facility] nasopharynx this procedure are in the results section. FRACTIONATED BILIRUBIN Routine 11/17/2022 Adenocarcinoma of Results for 12:11 PM [facility] nasopharynx this procedure are in the results section. TOTAL PROTEIN Routine 11/17/2022 Adenocarcinoma of Results f or 12:11 PM [facility] nasopharynx this procedure are in the results section. ASPARTATE AMINOTRANSFERASE Routine 11/17/2022 Adenocarcinoma of Results for 12:11 PM [facility] nasopharynx this procedure are in the results section. ALANINE AMINOTRANSFERASE Routine 11/17/2022 Adenocarcinoma o f Results for 12:11 PM [facility] nasopharynx this procedure are in the results section. ALKALINE PHOSPHATASE Routine 11/17/2022 Adenocarcinoma of Re sults for 12:11 PM [facility] nasopharynx this procedure are in the results section. ALBUMIN LEVEL Routine 11/17/2022 Adenocarcinoma of Results f or 12:11 PM [facility] nasopharynx this procedure are in the results section. CALCIUM LEVEL TOTAL Routine 11/17/2022 Adenocarcinoma of Res ults for 12:11 PM [facility] nasopharynx this procedure are in the results section. .GLOMERULAR FILTRATION Routine 11/17/2022 Adenocarcinoma of Results for RATE 12:11 PM [facility] nasopharynx this procedure are in the results section. SERUM CREATININE Routine 11/17/2022 Adenocarcinoma of Result s for 12:11 PM [facility] nasopharynx this procedure are in the results section. ELECTROLYTE PANEL Routine 11/17/2022 Adenocarcinoma of Resul ts for 12:11 PM [facility] nasopharynx this procedure are in the results section. BLOOD UREA NITROGEN Routine 11/17/2022 Adenocarcinoma of Res ults for 12:11 PM [facility] nasopharynx this procedure are in the results section. GLUCOSE LEVEL Routine 11/17/2022 Adenocarcinoma of Results f or 12:11 PM [facility] nasopharynx this procedure are in the results section. PROLACTIN Routine 11/17/2022 Adenocarcinoma of Results fo r 12:11 PM [facility] nasopharynx this procedure are in the results section. INSULIN LIKE GROWTH FACTOR Routine 11/17/2022 Adenocarcinoma of Results for 1 12:11 PM [facility] nasopharynx this procedure are in the results section. TOTAL T3 Routine 11/17/2022 Adenocarcinoma of Results fo r 12:11 PM [facility] nasopharynx this procedure are in the results section. FREE THYROXINE Routine 11/17/2022 Adenocarcinoma of Results for 12:11 PM [facility] nasopharynx this procedure are in the results section. THYROID STIMULATING Routine 11/17/2022 Adenocarcinoma of Res ults for HORMONE 12:11 PM [facility] nasopharynx this procedure are in the results section. LUTEINIZING HORMONE Routine 11/17/2022 Adenocarcinoma of Res ults for 12:11 PM [facility] nasopharynx this procedure are in the results section. FOLLICLE STIMULATING Routine 11/17/2022 Adenocarcinoma of Re sults for HORMONE LEVEL 12:11 PM [facility] nasopharynx this procedure are in the results section. TESTOSTERONE LEVEL Routine 11/17/2022 Adenocarcinoma of Resu lts for 12:11 PM [facility] nasopharynx this procedure are in the results section. ESTRADIOL LEVEL Routine 11/17/2022 Adenocarcinoma of Results for 12:11 PM [facility] nasopharynx this procedure are in the results section. ADRENOCORTICOTROPIC Routine 11/17/2022 Adenocarcinoma of Res ults for HORMONE 12:11 PM [facility] nasopharynx this procedure are in the results section. CORTISOL Routine 11/17/2022 Adenocarcinoma of Results fo r 12:11 PM [facility] nasopharynx this procedure are in the results section. PROTHROMBIN TIME Routine 11/17/2022 Adenocarcinoma of Result s for 12:11 PM [facility] nasopharynx this procedure are in the results section. APTT Routine 11/17/2022 Adenocarcinoma of Results fo r 12:11 PM [facility] [facility] nasopharynx this procedure are in the results section. COMPLETE BLOOD COUNT W/ Routine 11/17/2022 Adenocarcinoma of DIFFERENTIAL 12:11 PM [facility] nasopharynx COMPREHENSIVE METABOLIC Routine 11/17/2022 Adenocarcinoma of PANEL 12:11 PM [facility] nasopharynx HEPATITIS C VIRUS ANTIBODY Routine 11/17/2022 Adenocarcinoma of Results for 12:11 PM [employer] nasopharynx this procedure are in the results section. PATHOLOGY OUTSIDE Routine 10/16/2022 Results fo r INTERPRETATION this procedur e are in the results section. after 08/16/2022 Results ACTH (06/17/2023 12:29 PM CDT)Only the most recent of3 resultswithin the time period is included. athologist Signature ACTH 23 7 - 63 pg/mL TYRONZA Comment: Results greater than 1826 pg/mL may not be reliable due to matrix effect with extended dilution as it exceeds the plant operations coordinator's recommended limit. ACTH reference intervals are established for the morni ng hours from 7-10 am. Due to the circad katie rhythm of ACTH levels in plasma, the sample col lection time must be noted. Caution should be exercised when interpreting such values and done in conjunction with clinical context. Testing performed at [facility], [address] [place] [address] Specimen Anatomical Collection Method Collection Time Receive d Time (Source) Location / / Volume Laterality Blood 06/17/2023 12:29 06/17/2023 PM CDT 12:29 PM CDT Marily Garcia APRN LAB BLOOD ORDERABLES Performing Organization Address City/State/ZIP [place] [address] [place] [address] Cortisol, Total (06/17/2023 12:29 PM CDT)Only the most recent of3 resultswithin the time period is included. [facility] Cortisol, Total 8.07 4.80 - TYRONZA 19.50 mcg/dL Comment: Cortisol reference intervals are [...] (4-8pm) (2.5 - 11.9) Testing performed at [facility], [address] [place] [address], [place] [address] Specimen Anatomical Collection Method Collection Time Receive d Time (Source) Location / / Volume Laterality Blood 06/17/2023 12:29 06/17/2023 PM CDT 12:29 PM CDT Marily Garcia APRN LAB BLOOD ORDERABLES Performing Organization Address City/State/ZIP Code Phon e Number LINSEY JIMENEZ [facility] CLARIBEL Hand [address] [address] [facility] MRI Orbits with and without Contrast (04/22/2023 [...] 02/12/23 Comparison: MRI of the skull base 2022. Maxillofacial CT February 11, 2023. Technique: [...] follow-up recommended to exclude tumor in this [facility] posttreatment MRI. No suspicious lymph nodes. Winter Luu MD IMG MRI ORDERABLES .Serum Creatinine (04/22/2023 12:28 PM CDT)Only the most recent of44 results within the time period is included. athologist Signature Creatinine 0.80 0.51 - 0.95 T[place] mg/dL Comment: Testing performed at [facility], [facility] [place] [address] Specimen Anatomical Collection Method Collection Time Receive d Time (Source) Location / / Volume Laterality Blood 04/22/2023 12:28 04/22/2023 PM CDT 12:29 PM CDT Narrative T[facility]ONZA - 04/22/2023 1:04 PM CDT Coordinate all on same day. Ok to schedu le 1-2 weeks following 04/14 to coordinate appts Winter Luu MD LAB BLOOD ORDERABLES Performing Organization Address City/State/ZIP [place] [address] [place] [address] (ABNORMAL) .CBC (04/22/2023 12:28 PM CDT)Only the most recent of44 resultswithin the time period is included. athologist Signature WBC 6.5 4.0 - 11.0 [place] K/uL Comment: All components of the CBC perfo rmed at [facility], [address] [place] [address] 3 RBC 4.39 4.00 - 5.50 M/uL [place] Comment: All components of the CBC perfo rmed at [facility], [address] [place] [address] 3 Hgb 14.3 12.0 - 16.0 gm/dL T[facility]ONZA Comment: As part of CBC or as an individ ual orderable testing performed at [facility], [address] [place] [address], [place] [address] Hct 43.7 37.0 - 47.0 % TYRONZA Comment: As part of CBC testing performe d at [facility], [address] [place] [address], [place] [address] MCV 100 (H) 82 - 98 fL [facility] Comment: As part of CBC testing performe d at [facility], [address] [place] [address] MCH 32.6 (H) 27.0 - 31.0 pg TYRONZA Comment: As part of CBC testing performe d at [facility], [address] [place] [address] MCHC 32.7 31.0 - 36.0 gm/dL [facility]ZA Comment: As part of CBC testing performe d at [facility], [address] [place] [address] [place] [address] RDW-SD 45.6 35.1 - 46.3 fL [place]ZA Comment: As part of CBC testing performe d at [facility], [address] [place] [address], [place] [address] RDW-CV 12.1 12.0 - 15.5 % T[facility]ONZA Comment: As part of CBC testing performe d at [facility], [address] [place] [address], [place] [address] Platelet count 150 140 - 440 K/uL [facility] Comment: As part of CBC or an individual orderable testing performed at [facility], [address] [place] [address] MPV 9.6 4.0 - 10.4 fL [place]ZA Comment: As part of CBC testing performe d at [facility], [address] [place] [address], [place] [address] Specimen Anatomical Collection Method Collection Time Receive d Time (Source) Location / / Volume Laterality Blood 04/22/2023 12:28 04/22/2023 PM CDT 12:29 PM CDT Narrative TYRONZA - 04/22/2023 12:33 PM CDT Coordinate all on same day. Ok to schedu 1-2 weeks following 04/14 to coordinate appts Winter Luu MD LAB BLOOD ORDERABLES Performing Organization Address City/State/ZIP Code Phon e Number [place], [place] [phone] [place] [address] Glomerular Filtration Rate (04/22/2023 12:28 PM CDT)Only the most recent of44 resultswithin the time period is included. P athologist Signature eGFR 86 >=60 TYRONZA mL/min/1.73 sq. m Comment: The eGFRcr is [...] fulfill criteria for CKD. [facility], [address] [place] [address] Specimen Anatomical Collection Method Collection Time Receive d Time (Source) Location / / Volume Laterality Blood 04/22/2023 12:28 04/22/2023 PM CDT 12:29 PM CDT Narrative [facility] 04/22/2023 1:04 PM CDT Coordinate all on same day. [facility] 1-2 weeks following 04/14 to coordinate appts Winter Luu MD LAB BLOOD ORDERABLES Performing Organization Address City/State/ZIP [place] [address] [place] [address] (ABNORMAL) IGF-1 (04/22/2023 12:28 PM CDT)Only the most recent of2 resultswithin the time period is included. athologist Signature Insulin-Like 226 (H) 37 - 208 [facility] Growth Factor ng/mL [facility] IGF Z-score 2.33 -2.0 - 2.0 [facility] Comment: ADDITIONAL INFORMATIO N This test was developed and its performa nce characteristics determined by [facility] in a manner co nsistent with CLIA requirements. This test has not been sisi ared or approved by the U.S. Food and Drug Administration. Test Performed by: [place] [id number] [employer] [employer] Helper: Yonathan Guzman M.D. Ph. D.; CLIA# [id number] Specimen Anatomical Collection Method Collection Time Receive d Time (Source) Location / / Volume Laterality Blood 04/22/2023 12:28 04/22/2023 PM CDT 12:29 PM CDT Narrative [facility] - 3 3:42 PM CDT Coordinate all on same day. Ok to schedule 1-2 weeks following 04/14 to coordinate appts 8am Fasting Winter Luu MD LAB BLOOD ORDERABLES Performing Organization Address City/[facility] Phon e Number [facility] Unless otherwise noted, [address] all lab tests performed by: Division of Pathology and Laboratory Medicine [address] Prolactin (04/22/2023 12:28 PM CDT)Only the most recent of2 resultswithin the time period is included. athologist Signature Prolactin 10.9 4.8 - 23.3 [facility] ng/mL [facility] Comment: Results greater than 4700.0 ng/ mL may not be reliable due to matrix effect with extended dilution as it exceeds the plant operations coordinator s recommended limit. Caution should be e xercised when interpreting such values and done in conjunction with clinical contex t. Specimen Anatomical Collection Method Collection Time Receive d Time (Source) Location / / Volume Laterality Blood 04/22/2023 12:28 04/22/2023 8:43 PM CDT PM CDT Narrative [facility] - 3 9:07 PM CDT Coordinate all on same day. Ok to schedule 1-2 weeks following 04/14 to coordinate appts 8am Fasting Winter Luu MD LAB BLOOD ORDERABLES Performing Organization Address City/[facility] Phon e Number [facility] Unless otherwise noted, [address] all lab tests performed by: Division of Pathology and Laboratory Medicine [address] Estradiol (Women) (04/22/2023 12:28 PM CDT)Only the most recent of2 results within the time period is included. athologist Signature Estradiol <11 pg/mL [facility] Comment: Reference Ranges: Adult [...] 04/22/2023 8:43 PM CDT PM CDT Narrative [facility] - 9:07 PM CDT Coordinate all on same day. Ok to schedule 1-2 weeks following 04/14 to coordinate appts 8am Fasting Winter Luu MD LAB BLOOD ORDERABLES Performing Organization Address City/State/ZIP Code Phon e Number [facility] Unless otherwise noted, [place], [place] [phone] [place] [address] all lab tests performed by: Division of Pathology and Laboratory Medicine [address] (ABNORMAL) Differential (04/22/2023 12:28 PM CDT)Only the most recent of44 resultswithin the time period is included. athologist Signature Neutrophil % 86.1 (H) 42.0 - [facility] 66.0 % Comment: All components of the Different ial performed at [facility], [address] [place] [address] Lymphocyte % 10.9 (L) 24.0 - 44.0 % [facility] Comment: As part of the Differential hailey ting performed at [facility], [address] [place] [address] Monocyte % 2.3 2.0 - 7.0 % [facility] Comment: As part of the Differential hailey ting performed at [facility], [address] [place] [address] Eosinophil % 0.2 (L) 1.0 - 4.0 % [facility] Comment: As part of the Differential hailey ting performed at [facility], [address] [place] [address] Basophil % 0.2 0.0 - 1.0 % [place]ZA Comment: As part of the Differential hailey ting performed at [facility], [address] [place] [address] IGRE % 0.3 0.0 - 0.4 % T[place]ONZA Comment: IGRE % count includes Metamyelocytes, My elocytes, and Promyelocytes. As part of the Differential testing perf ormed at [facility], [address] [place] [address] Neutrophil Abs 5.62 1.70 - 7.30 K/uL [facility] Comment: As part of the Differential hailey ting performed at [facility], [address] [place] [address] Lymphocyte Abs 0.71 (L) 1.00 - 4.80 K/uL [facility] Comment: As part of the Differential hailey ting performed at [facility], [address] [place] [address] Monocyte Abs 0.15 0.08 - 0.70 K/uL [facility] Comment: As part of the Differential hailey ting performed at [facility], [address] [place] [address] Eosinophil Abs 0.01 (L) 0.04 - 0.40 K/uL [facility] Comment: As part of the Differential hailey ting performed at [facility], [address] [place] [address] Basophil Abs 0.01 0.00 - 0.10 K/uL [facility] Comment: As part of the Differential hailey ting performed at [facility], [address] [place] [address] IG Abs 0.02 0.00 - 0.04 K/uL [place] Comment: As part of the Differential hailey ting performed at [facility], [address] [place] [address] Specimen Anatomical Collection Method Collection Time Receive d Time (Source) Location / / Volume Laterality Blood 04/22/2023 12:28 04/22/2023 PM CDT 12:29 PM CDT [facility] 04/22/2023 12:33 PM CDT Coordinate all on same day. Ok to schedu le 1-2 weeks following 04/14 to coordinate appts Winter Luu MD LAB BLOOD ORDERABLES Performing Organization Address City/State/ZIP Code Phon e Number [place], [place] [phone] [place] [address] BUN (04/22/2023 12:28 PM CDT)Only the most recent of44 resultswithin the time period is included. athologist Signature BUN 12 6 - 23 mg/dL T[facility]ONZA Comment: Testing performed at [facility], [address] [place] [address] Specimen Anatomical Collection Method Collection Time Receive d Time (Source) Location / / Volume Laterality Blood 04/22/2023 12:28 04/22/2023 PM CDT 12:29 PM CDT [facility] - 04/22/2023 1:04 PM CDT Coordinate all on same day. Ok to schedu le 1-2 weeks following 04/14 to coordinate appts Winter Luu MD LAB BLOOD ORDERABLES Performing Organization Address City/[facility]/ZIP Code Phon e Number [place], [place] [phone] [place] [address] Total T3 (04/22/2023 12:28 PM CDT)Only the most recent of2 resultswithin the time period is included. athologist Signature T3 Total 117 80 - 200 [place] ng/dL Comment: Performed at [facility], [address] [place] [address] Specimen Anatomical Collection Method Collection Time Receive d Time (Source) Location / / Volume Laterality Blood 04/22/2023 12:28 04/22/2023 PM CDT 12:29 PM CDT [facility] - 04/22/2023 1:04 PM CDT Coordinate all on same day. Ok to schedule 1-2 weeks following 04/14 to coordinate appts 8am Fasting Winter Luu MD LAB BLOOD ORDERABLES Performing Organization Address City/State/ZIP [place] [address] [place] [address] TSH (04/22/2023 12:28 PM CDT)Only the most recent of3 resultswithin the time period is included. athologist Signature TSH 1.06 0.27 - 4.20 TYRONZA mcunit/mL Comment: Testing performed at [facility], [address] [place] [address] Specimen Anatomical Collection Method Collection Time Receive d Time (Source) Location / / Volume Laterality Blood 04/22/2023 12:28 04/22/2023 PM CDT 12:29 PM CDT [facility] - 04/22/2023 1:04 PM CDT Coordinate all on same day. Ok to schedule 1-2 weeks following 04/14 to coordinate appts 8am Fasting Winter Luu MD LAB BLOOD ORDERABLES Performing Organization Address City/State/ZIP [place] [address] [place] [address] Free T4 (04/22/2023 12:28 PM CDT)Only the most recent of3 resultswithin the time period is included. [facility] Free 1.21 0.93 - 1.70 [place] ng/dL Comment: Testing performed at [facility], [address] [place] [address] Specimen Anatomical Collection Method Collection Time Receive d Time (Source) Location / / Volume Laterality Blood 04/22/2023 12:28 04/22/2023 PM CDT 12:29 PM CDT [facility] - 04/22/2023 1:04 PM CDT Coordinate all on same day. Ok to schedule 1-2 weeks following 04/14 to coordinate appts 8am Fasting Winter Luu MD LAB BLOOD ORDERABLES Performing Organization Address City/State/ZIP [place] [address] [place] [address] LH (04/22/2023 12:28 PM CDT)Only the most recent of2 resultswithin the time period is included. athologist Signature LH 8.7 mIU/mL [facility] Comment: Female Luteinizing Hormone Reference Ran ges: LOW HIGH Follicular 2.4 12.6 Ovulation 14.0 95.6 Luteal 1.0 11.4 Postmenopause 7.7 58.5 Specimen Anatomical Collection Method Collection Time Receive d Time (Source) Location / / Volume Laterality Blood 04/22/2023 12:28 04/22/2023 8:43 PM CDT PM CDT Narrative [facility] - 9:07 PM CDT Coordinate all on same day. Ok to schedule 1-2 weeks following 04/14 to coordinate appts 8am Fasting Winter Luu MD LAB BLOOD ORDERABLES Performing Organization Address City/State/[facility] Code Phon e Number [facility] Unless otherwise noted, [address] all lab tests performed by: Division of Pathology and Laboratory Medicine [address] [facility]SH (04/22/2023 12:28 PM CDT)Only the most recent of2 resultswithin the time period is included. athologist Signature FSH 30.1 mIU/mL [facility] Comment: Female Follicle Stimulating Hormone Refe rence Ranges: L OW HIGH Follicular 3.5 12.5 Ovulation 4.7 21.5 Luteal 1.7 7.7 Postmenopause 25.8 134.8 Specimen Anatomical Collection Method Collection Time Receive d Time (Source) Location / / Volume Laterality Blood 04/22/2023 12:28 04/22/2023 8:43 PM CDT PM CDT Narrative [facility] - 9:07 PM CDT Coordinate all on same day. Ok to schedule 1-2 weeks following 04/14 to coordinate appts 8am Fasting Winter Luu MD LAB BLOOD ORDERABLES Performing Organization Address City/State/[facility] Phon e Number [facility] Unless otherwise noted, [address] all lab tests performed by: Division of Pathology and Laboratory Medicine [address] (ABNORMAL) Electrolyte Panel (04/22/2023 12:28 PM CDT)Only the most recent of45 resultswithin the time period is included. athologist Signature Sodium Lvl 135 (L) 136 - 145 [place] mEq/L Comment: Testing performed at [facility], [address] [place] [address] Potassium Lvl 4.7 3.5 - 5.1 mEq/L [facility] Comment: Testing performed at [facility], [address] [place] [address], [place] [address] Chloride 96 (L) 98 - 107 mEq/L T[facility]ONZA Comment: Testing performed at [facility], [address] [place] [address], [place] [address] CO2 21 (L) 22 - 29 mEq/L [facility] Comment: Testing performed at [facility], [address] [place] [address] Anion Gap 18 (H) 4 - 14 mEq/L [facility] Comment: Testing performed at [facility], [address] [place] [address] Specimen Anatomical Collection Method Collection Time Receive d Time (Source) Location / / Volume Laterality Blood 04/22/2023 12:28 04/22/2023 PM CDT 12:29 PM CDT Narrative [facility] - 04/22/2023 1:04 PM CDT Coordinate all on same day. Ok to schedu le 1-2 weeks following 04/14 to coordinate appts Winter Luu MD LAB BLOOD ORDERABLES Performing Organization Address City/State/ZIP Code Phon e Number [facility] [place] [address] [place] [address] Fractionated Bilirubin (03/11/2023 11:15 AM CDT)Only the most recent of24 resultswithin the time period is included. athologist Signature Bili Total <0.3 <=1.2 mg/dL [facility] Comment: Direct and indirect bilirubin will not b e reported when Total bilirubin result is <0.3 mg/dL Indocyanine Green (ICG) may cause falsel y elevated bilirubin results. Total and direct bilirubin must not be measured from samples containing indocyanine green. False elevation of total bilirubin can b e seen in patients with IgG concentrations above 28 g/L. Testing performed at [facility], [address] [place] [address] Specimen Anatomical Collection Method Collection Time Receive d Time (Source) Location / / Volume Laterality Blood 03/11/2023 11:15 03/11/2023 AM CDT 11:16 AM CDT [facility] - 03/11/2023 11:40 AM CDT Follow up at 1120, lab prior and infusio n after Lorena Hdez APRN LAB BLOOD ORDERABLES Performing Organization Address City/[facility]/ZIP Code Phon e Number [place], [place] [phone] [place] [address] (ABNORMAL) ALT (03/11/2023 11:15 AM CDT)Only the most recent of24 resultswithin the time period is included. P athologist Signature ALT 40 (H) <=33 U/L [place] Comment: Testing performed at [facility], [address] [place] [address] Specimen Anatomical Collection Method Collection Time Receive d Time (Source) Location / / Volume Laterality Blood 03/11/2023 11:15 03/11/2023 AM CDT 11:16 AM CDT [facility] 03/11/2023 11:40 AM CDT Follow up at 1120, lab prior and infusio n after Lorena Hdez APRN LAB BLOOD ORDERABLES Performing Organization Address City/[facility] Code Phon e Number [place], [place] [phone] [place] [address] Aspartate Aminotransferase (03/11/2023 11:15 AM CDT)Only the most recent of24 resultswithin the time period is included. P athologist Signature AST 26 <=32 U/L [place] Comment: Testing performed at [facility], [address] [place] [address] Specimen Anatomical Collection Method Collection Time Receive d Time (Source) Location / / Volume Laterality Blood 03/11/2023 11:15 03/11/2023 AM CDT 11:16 AM CDT [facility] - 03/11/2023 11:40 AM CDT Follow up at 1120, lab prior and infusio n after Lorena Kayla Hdez APRN LAB BLOOD ORDERABLES Performing Organization Address City/[facility]/ZIP Code Phon e Number [place], [place] [phone] [place] [address] Total Protein (03/11/2023 11:15 AM CDT)Only the most recent of24 resultswithin the time period is included. athologist Signature Total Protein 7.0 6.4 - 8.3 [place] g/dL Comment: Testing performed at [facility], [address] [place] [address] Specimen Anatomical Collection Method Collection Time Receive d Time (Source) Location / / Volume Laterality Blood 03/11/2023 11:15 03/11/2023 AM CDT 11:16 AM CDT [facility] - 03/11/2023 11:40 AM CDT Follow up at 1120, lab prior and infusio n after Lorena Hdez APRN LAB BLOOD ORDERABLES Performing Organization Address City/[facility] Phon e [place], [place] [phone] [place] [address] (ABNORMAL) Alkaline Phosphatase (03/11/2023 11:15 AM CDT)Only the most recent of 24 resultswithin the time period is included. athologist Signature Alk Phos 107 (H) 35 - 104 [place] U/L Comment: Testing performed at [facility], [address] [place] [address] Specimen Anatomical Collection Method Collection Time Receive d Time (Source) Location / / Volume Laterality Blood 03/11/2023 11:15 03/11/2023 AM CDT 11:16 AM CDT [facility] - 03/11/2023 11:40 AM CDT Follow up at 1120, lab prior and infusio n after Lorena Hdez APRN LAB BLOOD ORDERABLES Performing Organization Address City/State/ZIP [facility] [place] [address] [place] [address] (ABNORMAL) Magnesium Level (03/11/2023 11:15 AM CDT)Only the most recent of42 resultswithin the time period is included. athologist Signature Magnesium 1.4 (L) 1.6 - 2.6 [place] mg/dL Comment: Testing performed at [facility], [address] [place] [address] Specimen Anatomical Collection Method Collection Time Receive d Time (Source) Location / / Volume Laterality Blood 03/11/2023 11:15 03/11/2023 AM CDT 11:16 AM CDT [facility] - 03/11/2023 11:40 AM CDT Follow up at 1120, lab prior and infusio n after Lorena Hdez APRN LAB BLOOD ORDERABLES Performing Organization Address City/State/ZIP Code Phon e Number [place], [place] [phone] [place] [address] (ABNORMAL) Glucose Level (03/11/2023 11:15 AM CDT)Only the most recent of43 resultswithin the time period is included. athologist Signature Glucose Level 324 (H) 70 - 99 [place] mg/dL Comment: Effective 05/27/16, the glucose reference intervals have been updated based on [place] Diabetes Association guidelines (Standards of Medical Care in Diabetes 2016. Diabetes Care 2016; 39: S13-S22). Fasting blood glucose: Normal: 70-99 mg/dL Impaired fasting glucose (increased risk for diabetes or pre-diabetes): 100- 125 mg/dL Diabetes mellitus: >/=126 mg/dL Random blood glucose: Normal: 70-199 mg/dL Note: Random glucose >100 mg/dL is assoc iated with increased risk for diabetes Testing performed at [facility], [address] [place] [id number] Specimen Anatomical Collection Method Collection Time Receive d Time (Source) Location / / Volume Laterality Blood 03/11/2023 11:15 03/11/2023 AM CDT 11:16 AM CDT [facility] - 03/11/2023 11:40 AM CDT Follow up at 1120, lab prior and infusio n after Lorena Hdez PASTE PLANT SUPERVISOR LAB BLOOD ORDERABLES Performing Organization Address City/State/ZIP Code Phon e Number [place], [place] [id number] [place] [address] Calcium Level (03/11/2023 11:15 AM CDT)Only the most recent of43 resultswithin the time period is included. athologist Signature Calcium Lvl 9.3 8.4 - 10.2 TYRONZA mg/dL Comment: Testing performed at [facility], [address] [place] [address] Specimen Anatomical Collection Method Collection Time Receive d Time (Source) Location / / Volume Laterality Blood 03/11/2023 11:15 03/11/2023 AM CDT 11:16 AM CDT [facility] - 03/11/2023 11:40 AM CDT Follow up at 1120, lab prior and infusio n after Lorena Kayla Hdez PASTE PLANT SUPERVISOR LAB BLOOD ORDERABLES Performing Organization Address City/[facility]/ZIP Code Phon e Number [place], [place] [id number] [place] [address] Albumin Level (03/11/2023 11:15 AM CDT)Only the most recent of24 resultswithin the time period is included. athologist Signature Albumin Lvl 3.9 3.5 - 5.2 TYRONZA gm/dL Comment: Testing performed at [facility], [address] [place] [address] Specimen Anatomical Collection Method Collection Time Receive d Time (Source) Location / / Volume Laterality Blood 03/11/2023 11:15 03/11/2023 AM CDT 11:16 AM CDT Narrative [facility] - 03/11/2023 11:40 AM CDT Follow up at 1120, lab prior and infusio n after Lorena Riojasjazmin Hdez PASTE PLANT SUPERVISOR LAB BLOOD ORDERABLES Performing Organization Address City/State/ZIP Code Phon e Number [address] (ABNORMAL) POC Glucose Screen (02/16/2023 12:02 PM [...] Sample Type Capillary POC TELCOR Performing Lab [facility] POC TELCO R Comment: [facility], [address] [place] [address], [place] [address]; Lab Direct or: Chula Jacob MD; Waived Point of Care Testing - Gabrielle Mueller MD Specimen Anatomical Collection Method Collection Time Receive d Time (Source) Location / / Volume Laterality Blood 02/16/2023 12:02 02/16/2023 PM CDT 12:02 PM CDT Ashleigh Rangel MD POCT ORDERABLES - DEVIC E Performing Organization Address City/State/ZIP Code Phon e Number POC TELCOR Unless otherwise noted, [place] [address] lab tests performed by: Division of Pathology and Laboratory Medicine [address] [place] [address] (ABNORMAL) Anti-Xa Level (02/16/2023 11:13 AM CDT) athologist Signature Anti-Xa Level 1.45 (H) 0.00 - UT 0.10 [facility] unit/mL [facility] Comment: Anti-Xa [...] Chest 2008; 133;[id number] Hep Type Enoxaparin [facility] Specimen Anatomical Collection Method Collection Time Receive d Time (Source) Location / / Volume Laterality Blood 02/16/2023 11:13 02/16/2023 AM CDT 11:21 AM CDT Narrative [facility] - 3 1:11 PM CDT Nurse please coordinate with lab to draw n Anti-Xa level (low molecular weight heparin level) 4 hours after 02/16/23 morning kourtney xaparin dose is given. Angeli Wang MD LAB BLOOD ORDERABLES Performing Organization Address City/[facility]/ZIP Code Phon e Number [facility] Unless otherwise noted, [address] all lab tests performed by: Division of Pathology and Laboratory Medicine [facility]5 [facility] Phosphorus Level (02/16/2023 6:15 AM CDT)Only the most recent of40 resultswithin the time period is included. P athologist Signature Phosphorus 4.3 2.5 - 4.5 [facility] mg/dL [facility] Specimen Anatomical Collection Method Collection Time Receive d Time (Source) Location / / Volume Laterality Blood 02/16/2023 6:15 AM 3 6:59 CDT AM CDT DEEPTI Harrell APRN LAB BLOOD ORDERABLES Performing Organization Address City/[facility] Phon e Number [facility] CANCER Unless otherwise noted, [address] all lab tests performed by: Division of Pathology and Laboratory Medicine [facility] General Laboratory Add-On Test (02/12/2023 9:33 AM CDT)Only the most recent of4 resultswithin the time period is included. Patholo gist Method Time Signature Ordered Test Added [facility] Test Needed procalcitonin [facility] Specimen Anatomical Collection Method Collection Time Receive d Time (Source) Location / / Volume Laterality Existing 02/12/2023 9:33 AM 3 9:34 CDT AM CDT Kimberli GALE LAB BLOOD ORDERABLES Performing Organization Address City/State/ZIP Code Phon e Number [facility] CANCER Unless otherwise noted, [address] all lab tests performed by: Division of Pathology and Laboratory Medicine [address] [facility] (ABNORMAL) Procalcitonin (02/12/2023 5:34 AM CDT)Only the most recent of4 resultswithin the time period is included. athologist Signature Procalcitonin 0.38 (H) <=0.08 [facility] ng/mL [facility] Comment: Procalcitonin > 2.00 ng/mL: Procalcit onin [...] with extended dilution as it exceeds the plant operations coordinator's recommended limit. Caution should be exercised when interpreting such values and done in conjunction with clinical context. Specimen Anatomical Collection Method Collection Time Receive d Time (Source) Location / / Volume Laterality Blood 02/12/2023 5:34 AM 3 6:18 CDT AM CDT DEEPTI Harrell APRN LAB BLOOD ORDERABLES Performing Organization Address City/State/ZIP Code Phon e Number [facility] CANCER Unless otherwise noted, [address] all lab tests performed by: Division of Pathology and Laboratory Medicine [address] [place] [address] CT Maxillofacial Area with Contrast (02/11/2023 4:15 [...] athologist Signature CK 125 26 - 192 [facility] U/L [facility] Specimen Anatomical Collection Method Collection Time Receive d Time (Source) Location / / Volume Laterality Blood 02/09/2023 5:37 AM 3 6:08 CDT AM CDT Shelby GALE LAB BLOOD ORDERABLES Performing Organization Address City/State/ZIP Code Phon e Number [facility] CANCER Unless otherwise noted, [place] [address] OMAK all lab tests performed by: Division of Pathology and Laboratory Medicine [address] [place] [address] US Arm Venous Doppler Bilateral (02/08/2023 6:28 [...] PM CDT Examination: US ARM VENOUS DOPPLER YANDY BOND, [...] imaginD volumes were not performed in this [facility]. Cardiac Mechanics/Speckle Tracking Imagi ng: Speckle tracking imaging was not perform ed in this study. (Meteor Study). Diastology: Indeterminate. Right Ventricle: The right [...] was not perform ed in this study. (Meteor Study). Diastology: Indeterminate. Right Ventricle: The right [...] 1 90.6 ml EF(MOD-A2C): 65.3 % ESV(MOD-bp): 71 .5 ml EF(MOD-bp): 62.5 % LAV(MOD-A4C): 71.8 ml [...] mmHg NGOZI Index (I,D): 0.80 NGOZI Index (V, D): 0.74 Dimensionless Index: 0.58 E/e' (avg ): [...] purpose. For additional information please refer to http://education.NebuAd.Cloudcam/fa q/[email or web address] (This link is being provided for informa tional/ educational purposes only.) The performance of this assay has not be en clinically validated in patients less than 2 years old. Lab test performed by: Lab Mnemonic: [employer] [address] [id number] JOSE ELIAS MELÉNDEZ MD Specimen Anatomical Collection Method Collection Time Receive d Time (Source) Location / / Volume Laterality Blood 02/07/2023 6:52 AM 3 7:22 CDT AM CDT Thao Soria MD LAB BLOOD ORDERABLES Performing Organization Address [facility] Phon e Number [facility] Hepatitis C Virus Ab (02/07/2023 6:52 AM CDT)Only the most recent of2 results within the time period is included. [facility] Method Time Signature HCVAb. Non Reactive Non Reactive [facility] Comment: Antibody detection in [...] MD LAB BLOOD ORDERABLES Performing Organization Address City/[facility] Phon e Number [facility] CANCER Unless otherwise noted, [address] all lab tests performed by: Division of Pathology and Laboratory Medicine [address] [place] [address] Hepatitis B Total Ig Core Ab (SCREENING) (anti-HBc total Ig; HBcAb total Ig) (02/07/2023 6:52 AM CDT) [facility] Method [place] Signature HBcAb. Non Reactive Non Reactive [facility] Specimen Anatomical Collection Method Collection Time Receive d Time (Source) Location / / Volume Laterality Blood 02/07/2023 6:52 AM 3 8:32 CDT AM CDT Thao Soria MD LAB BLOOD ORDERABLES Performing Organization Address City/[facility] Phon e Number [facility] CANCER Unless otherwise noted, [address] all lab tests performed by: Division of Pathology and Laboratory Medicine [address] Hepatitis B Surface Ag (02/07/2023 6:52 AM CDT) Patholo gist Method Time Signature HBsAg. Non Reactive Non Reactive [facility] Specimen Anatomical Collection Method Collection Time Receive d Time (Source) Location / / Volume Laterality Blood 02/07/2023 6:52 AM 3 8:32 CDT AM CDT Thao Soria MD LAB BLOOD ORDERABLES Performing Organization Address [facility] Phon e Number [facility] Unless otherwise noted, [address] all lab tests performed by: Division of Pathology and Laboratory Medicine [address] Blood Culture (02/07/2023 6:52 AM CDT)Only the most recent of6 resultswithin the time period is included. P athologist Signature Final Report No growth [facility] Specimen Anatomical Collection Method Collection Time Receive d Time (Source) Location / / Volume Laterality Blood 02/07/2023 6:52 AM 3 7:43 (Venipuncture-Ri CDT AM CDT ght) Comment: arm Tim Nguyen MD MICROBIOLOGY - GENERAL ORDER GODWIN Performing Organization Address City/[facility] Phon e Number [facility] CANCER Unless otherwise noted, [address] all lab tests performed by: Division of Pathology and Laboratory Medicine [address] Transferrin with TIBC (02/07/2023 6:52 AM CDT) P athologist Signature Transferrin 205 200 - 360 [facility] mg/dL [facility] TIBC 287 250 - 450 [facility] mcg/dL [facility] Specimen Anatomical Collection Method Collection Time Receive d Time (Source) Location / / Volume Laterality Blood 02/07/2023 6:52 02/07/2023 7:07 AM CDT AM CDT Thao Soria MD LAB BLOOD ORDERABLES Performing Organization Address City/[facility]/ZIP [facility] Phon e Number [facility] CANCER Unless otherwise noted, [address] all lab tests performed by: Division of Pathology and Laboratory Medicine [address] [place] [address] [place] Level (02/07/2023 6:52 AM CDT) athologist Signature [place] 51 37 - 145 [facility] mcg/dL [facility] Specimen Anatomical Collection Method Collection Time Receive d Time (Source) Location / / Volume Laterality Blood 02/07/2023 6:52 AM 3 7:07 CDT AM CDT Thao Soria MD LAB BLOOD ORDERABLES Performing Organization Address [facility] Phon e Number [facility] CANCER Unless otherwise noted, [address] all lab tests performed by: Division of Pathology and Laboratory Medicine [address] [place] [address] (ABNORMAL) Hemoglobin A1c (02/07/2023 6:52 AM CDT)Only the most recent of2 resultswithin the time period is included. athologist [facility] A1C 10.2 (H) 4.3 - 5.6 % [facility] Comment: HbA1c values >=6.5% [...] MD LAB BLOOD ORDERABLES Performing Organization Address City/[facility]/ZIP [facility] Phon e Number [facility] CANCER Unless otherwise noted, [address] all lab tests performed by: Division of Pathology and Laboratory Medicine [address] [place] [address] [place] (ABNORMAL) Ferritin Level (02/07/2023 6:52 AM CDT) athologist Signature Ferritin Lvl 320 (H) 13 - 150 [facility] ng/mL [facility] Specimen Anatomical Collection Method Collection Time Receive d Time (Source) Location / / Volume Laterality Blood 02/07/2023 6:52 AM 3 7:07 CDT AM CDT Thao Soria MD LAB BLOOD ORDERABLES Performing Organization Address City/[facility] Phon e Number [facility] CANCER Unless otherwise noted, [address] all lab tests performed by: Division of Pathology and Laboratory Medicine [facility] Judalary Hodges (ABNORMAL) Lipid Panel (02/07/2023 6:52 AM CDT) athologist Signature Chol 137 <=199 mg/dL [facility] Comment: ATP III Classification of Total Choleste rol Primary Target of Therapy (in mg/dL): <200 Desirable 200-239 Borderline high >=240 High Trig 184 (H) <=149 mg/dL [facility] Comment: ATP III Classification of Serum Triglyce rides Primary Target of Therapy (in mg/dL): <150 Normal 150-199 Borderline high 200-499 High >=500 Very high Non-fasting triglycerides >200 mg/dL may be followed up with a fasting Lipid Panel. Calculated LDL-C may be falsely decreased when non-fasting triglycerides >200 mg/dL. HDL 27 (L) >=40 mg/dL [facility] LDL 73 <=100 mg/dL [facility] Comment: ATP III Classification of LDL Cholestero l Primary Target of Therapy (in mg/dL): <100 Optimal 100-129 Near optimal/above optimal 130-159 Borderline high 160-189 High >=190 Very high VLDL 37 mg/dL [facility] Specimen Anatomical Collection Method Collection Time Receive d Time (Source) Location / / Volume Laterality Blood 02/07/2023 6:52 AM 3 7:07 CDT AM CDT Thao Soria MD LAB BLOOD ORDERABLES Performing Organization Address City/[facility] Phon e Number [facility] CANCER Unless otherwise noted, [address] all lab tests performed by: Division of Pathology and Laboratory Medicine [facility] Michellelary Hodges Clostridium Difficile DNA Path Review (02/07/2023 5:18 AM CDT) Component Value Ref Test Analysis Performed At Patholo gist Range Method Time Signature C diff DNA SC Reviewed and Electronically signed by Pathologist: PA MD PATRICIA CHAVEZ MD #[id number] [facility] Comment: C. difficile Toxin DNA [...] for repeat testing. PATRICIA CHAVEZ MD - [id number] Dictated by: PATRICIA CHAVEZ MD - [id number] Dictated Date/Time: 02.07.2023 16:35 PM CDT Transcribed Date/Time: 02.07.2023 16:35 PM CDT Electronically Signed By: PATRICIA OTTO MD - [id number] on 02.07.2023 16:35 PM Specimen Anatomical Collection Method Collection Time Receive d Time (Source) Location / / Volume Laterality Stool 02/07/2023 5:18 AM 3 8:07 CDT AM CDT Thao Soria MD MICROBIOLOGY - GENERAL ORDER [facility]WIN Performing Organization Address City/State/ZIP Code Phon e Number [facility] CANCER Unless otherwise noted, [place], [place] [id number] [place] [address] all lab tests performed by: Division of Pathology and Laboratory Medicine [address] [place] [address] [place] Clostridium Difficile DNA Assay (02/07/2023 5:18 AM CDT) [facility] Method Time Signature C difficile DNA Negative Negative CARLA GRIFFIN [facility] [place] C difficle Toxin Test Not Negative CARLA GRIFFIN EIA Performed [facility] C difficile C. difficile CARLA GRIFFIN Interpretation DNA [facility] detection CANCER was negative CENTER making C. difficile infection highly unlikely in this patient. EIA not performed. Specimen Anatomical Collection Method Collection Time Receive d Time (Source) Location / / Volume Laterality Stool 02/07/2023 5:18 AM 3 6:14 CDT AM CDT Thao Cisneros Estella GRIFFIN MICROBIOLOGY - GENERAL ORDER [facility]WIN Performing Organization Address City/State/ZIP Code Phon e Number [facility] CANCER Unless otherwise noted, [place] [address] OMAK all lab tests performed by: Division of Pathology and Laboratory Medicine [address] Gastrointestinal Multiplex Panel (02/07/2023 5:16 AM CDT) Component Value Ref Range Test Analysis Performed Pathologis t Method Time At Signature Campylobacter Not Detected Not [place] Detected [facility] C difficile DNA (GI Refer to PA Multi Panel) separate C. READING difficile DNA CANCER Assay for CENTER results Plesiomonas Not Detected Not PA shigelloides Detected [facility] Salmonella Not Detected Not [place] Detected [facility] Vibrio Not Detected Not [place] Detected [facility] Vibrio cholerae Not Detected Not [place] Detected [facility] Yersinia Not Detected Not [facility] enterocolitica Detected [facility] Enteroaggregative E. Not Detected Not [facility] coli (EAEC) Detected [facility] Enteropathogenic E. Not Detected Not [place] coli (EPEC) Detected [facility] Enterotoxigenic E. Not Detected Not [facility] coli (ETEC) Detected [facility] Shiga-like Not Detected Not [facility] toxin-producing E. Detected [facility] (STEC) [facility] E. coli O157 Not Not [facility] Applicable Detected [facility] Shigella/Enteroinvas Not Detected Not [facility] rosales E. coli (EIEC) Detected [facility] Cryptosporidium Not Detected Not [facility] Detected [facility] Cyclospora Not Detected Not PA cayetanensis Detected [facility] Entamoeba Not Detected Not [place] histolytica Detected [facility] Giardia lamblia Not Detected Not [facility] Detected [facility] Adenovirus F 40/41 Not Detected Not [facility] Detected [facility] Astrovirus Not Detected Not [facility] Detected [facility] Norovirus GI/GII Not Detected Not [facility] Detected [facility] Rotavirus A Not Detected Not [facility] Detected [facility] Sapovirus (I, II, IV Not Detected Not [facility] and V) Detected [facility] Specimen Anatomical Collection Method Collection Time Receive d Time (Source) Location / / Volume Laterality Stool 02/07/2023 5:16 AM 3 6:13 CDT AM CDT Thao Amelia Soria MD MICROBIOLOGY - GENERAL ORDER GODWIN Performing Organization Address City/[facility] Phon e Number [facility] CANCER Unless otherwise noted, [address] all lab tests performed by: Division of Pathology and Laboratory Medicine Jasmyne Michelle Hodges Gastrointestinal Multiplex Panel Path Review (02/07/2023 5:16 AM CDT) [facility] gist Method Time Signature GIMP SC Reviewed and Electronically signed by Pathologist: PA MD PATRICIA CHAVEZ MD #[id number] [facility] Comment: Performed by real-time PCR [...] correlation is recommended. PATRICIA CHAVEZ MD - [id number] Dictated by: PATRICIA CHAVEZ MD - [id number] Dictated Date/Time: 02.07.2023 16:40 PM CDT Transcribed Date/Time: 02.07.2023 16:40 PM CDT Electronically Signed By: PATRICIA OTTO MD - [id number] on 02.07.2023 16:40 PM Specimen Anatomical Collection Method Collection Time Receive d Time (Source) Location / / Volume Laterality Stool 02/07/2023 5:16 AM 6:13 CDT AM CDT Thao Soria MD LAB BLOOD ORDERABLES Performing Organization Address City/[facility] Phon e Number [facility] CANCER Unless otherwise noted, [address] all lab tests performed by: Division of Pathology and Laboratory Medicine [facility] Michelle Hodges EKG, 12-Lead (Portable) (02/07/2023)Only the most [...] within the time period is included. athologist [facility] NT ProBNP 83 <=125 pg/mL [facility] Specimen Anatomical Collection Method Collection Time Receive d Time (Source) Location / / Volume Laterality Blood 02/06/2023 3:05 AM 3:20 CDT AM CDT Cathie Meneses PASTE PLANT SUPERVISOR,AGACNP LAB BLOOD ORDERABLES Performing Organization Address City/[facility]/ZIP Code Phon e Number [facility] Unless otherwise noted, [address] all lab tests performed by: Division of Pathology and Laboratory Medicine [address] CRP (02/06/2023 3:05 AM CDT)Only the most recent of3 resultswithin the time period is included. athologist [facility] CRP 65.62 mg/L [facility] Comment: Reference ranges for [...] AM 3:20 CDT AM CDT Cathie Meneses PASTE PLANT SUPERVISOR,AGACNP LAB BLOOD ORDERABLES Performing Organization Address City/State/ZIP Code Phon e Number [facility] CANCER Unless otherwise noted, [address] all lab tests performed by: Division of Pathology and Laboratory Medicine [address] Troponin T (In-House) (02/06/2023 1:09 AM CDT)Only the most recent of2 results within the time period is included. athologist Signature Troponin T 10 <=19 ng/L [facility] Comment: < 19 ng/L [...] MD LAB BLOOD ORDERABLES Performing Organization Address City/[facility] Phon e Number [facility] CANCER Unless otherwise noted, [address] all lab tests performed by: Division of Pathology and Laboratory Medicine [facility] [address] (ABNORMAL) Urine Culture (02/06/2023 12:40 AM CDT)Only the most recent of3 resultswithin the time period is included. Patholo gist Method Time Signature Final Report 10 - 50,000 cfu/ml Normal site isabel present. PA Generally of low significance. [facility] Correlate with clinical data and culture history. [facility] CENTER (A) Specimen Anatomical Collection Method Collection Time Receive d Time (Source) Location / / Volume Laterality Urine 02/06/2023 12:40 02/06/2023 2:54 AM CDT AM CDT Irina Houston APRN MICROBIOLOGY - GENERAL ORDER GODWIN Performing Organization Address City/[facility] Phon e Number [facility] CANCER Unless otherwise noted, [address] all lab tests performed by: Division of Pathology and Laboratory Medicine [address] aPTT (02/05/2023 8:26 PM CDT)Only the most recent of5 resultswithin the time period is included. P athologist Signature aPTT 28.5 22.8 - 34.2 [place] MD [facility] second(s) [facility]ENTER Specimen Anatomical Collection Method Collection Time Receive d Time (Source) Location / / Volume Laterality Blood 02/05/2023 8:26 PM 3 8:29 CDT PM CDT Deneen Guevara MD LAB BLOOD ORDERABLES Performing Organization Address City/[facility]/ZIP [facility] Phon e Number [facility] CANCER Unless otherwise noted, [address] all lab tests performed by: Division of Pathology and Laboratory Medicine [facility] Lactate (02/05/2023 8:26 PM CDT)Only the most recent of4 resultswithin the time period is included. athologist Signature V Lactate 1.2 0.5 - 1.6 [facility] mmol/L [facility] Specimen Anatomical Collection Method Collection Time Receive d Time (Source) Location / / Volume Laterality Blood 02/05/2023 8:26 PM 3 8:29 CDT PM CDT Deneen Guevara MD LAB BLOOD ORDERABLES Performing Organization Address City/[facility] Phon e Number [facility] CANCER Unless otherwise noted, [address] all lab tests performed by: Division of Pathology and Laboratory Medicine [facility]5 [facility] (ABNORMAL) Prothrombin Time with INR (02/05/2023 8:26 PM CDT)Only the most recent of5 resultswithin the time period is included. P athologist Signature PT 14.7 (H) 11.9 - 14.1 [facility] INR 1.16 (H) 0.89 - 1.10 [facility] Specimen Anatomical Collection Method Collection Time Receive d Time (Source) Location / / Volume Laterality Blood 02/05/2023 8:26 PM 3 8:29 CDT PM CDT Deneen Guevara MD LAB BLOOD ORDERABLES Performing Organization Address City/[facility]/ZIP [facility] Phon e Number [facility] CANCER Unless otherwise noted, [address] all lab tests performed by: Division of Pathology and Laboratory Medicine [facility]5 Juda [place] (ABNORMAL) D Dimer (02/05/2023 8:26 PM CDT) P athologist Signature D-Dimer 3.04 (H) 0.10 - 0.50 PA MD BLUM mcg/ml [facility] Comment: The cut off value for exclusion of venou s thromboembolism is <0.51 mcg/mL FEUs (fibrinogen equival ent units). Specimen Anatomical Collection Method Collection Time Receive d Time (Source) Location / / Volume Laterality Blood 02/05/2023 8:26 PM 8:29 CDT PM CDT Deneen Guevara MD LAB BLOOD ORDERABLES Performing Organization Address City/State/ZIP Code Phon e Number [facility] Unless otherwise noted, [place] [address] CENTER all lab tests performed by: Division of Pathology and Laboratory Medicine [address] X-ray Abdomen AP (02/05/2023 6:59 PM CDT) [...] of4 resultswithin the time period is included. [facility] Method Time Signature COVID19 Not Detected Not Detected CARLA GRIFFIN (SARS-CoV-2) [facility] COVID19 SARS Inpatient CARLA GRIFFIN Indication Admission [facility] Covid 19 See Note CARLA GRIFFIN Comment [facility] Comment: The ruby SARS-CoV-2 nucleic acid [...] fact sheet for patients provided by the plant operations coordinator ([employer]) can be reviewed at: https://www.fda.gov/media/453877/treasure molina A fact sheet for Health Care providers is provided by the plant operations coordinator ([employer]) and can be reviewed at: https://www.fda.gov/media/446760/download Results must be interpreted within the c [...] This assay has been authorized by the [facility] for use only under Emergency Use Authorization (EUA) in laboratories that have been CLIA-certified to perform moderate-complexity and high-complexity tests. The Microbiology Laboratory at [facility], CLIA Accreditation #[id number] a or CAP Accreditation #[id number], verified the performance characteristics of this assay. Internal controls are used to monitor all stages of the test process. Specimen (Source) Anatomical Collection Method Collection Time Re ceived Time Location / / Volume Laterality Nasopharyngeal Swab 02/05/2023 5:09 02/05 PM CDT 5:17 PM CDT Amanda Proctor MD MICROBIOLOGY - GENERAL ORDER GODWIN Performing Organization Address City/State/ZIP Code Phon e Number [facility] CANCER Unless otherwise noted, [place] [address] [place] all lab tests performed by: Division of Pathology and Laboratory Medicine [address] Lipase (02/05/2023 3:30 PM CDT)Only the most recent of4 resultswithin the time period is included. P athologist Signature Lipase Lvl 18 13 - 60 U/L [facility] Specimen Anatomical Collection Method Collection Time Receive d Time (Source) Location / / Volume Laterality Blood 02/05/2023 3:30 PM 04/07/202 3 3:39 CDT PM CDT Amanda Proctor MD LAB BLOOD ORDERABLES Performing Organization Address City/State/ZIP Code Phon e Number [facility] CANCER Unless otherwise noted, [address] all lab tests performed by: Division of Pathology and Laboratory Medicine [address] [place] [address] CKMB (02/05/2023 3:30 PM CDT) P athologist Signature CK MB <2.0 <=5.3 ng/mL [facility] Specimen Anatomical Collection Method Collection Time Receive d Time (Source) Location / / Volume Laterality Blood 02/05/2023 3:30 PM 3 3:39 CDT PM CDT Amanda Proctor MD LAB BLOOD ORDERABLES Performing Organization Address City/[facility]/ZIP Code Phon e Number [facility] CANCER Unless otherwise noted, [address] all lab tests performed by: Division of Pathology and Laboratory Medicine [address] [place] [address] Amylase Level (02/05/2023 3:30 PM CDT)Only the most recent of2 resultswithin the time period is included. P athologist Signature Amylase Lvl 43 28 - 100 [facility] U/L [facility] Specimen Anatomical Collection Method Collection Time Receive d Time (Source) Location / / Volume Laterality Blood 02/05/2023 3:30 PM 3 3:39 CDT PM CDT Amanda Proctor MD LAB BLOOD ORDERABLES Performing Organization Address City/[facility]/ZIP Code Phon e Number [facility] CANCER Unless otherwise noted, [address] all lab tests performed by: Division of Pathology and Laboratory Medicine [address] [place] [address] [place] (ABNORMAL) Urinalysis with Microscopic (02/05/2023 12:39 AM CDT) Patholo gist Method Time Signature UA Color [place] (A) Straw-[place]el [place] UA Appear Cloudy (A) Clear [facility] UA Glucose 500 (A) NEG mg/dL [facility] UA Bili NEG NEG [facility] UA Ketones 40 (A) NEG mg/dL [facility] UA Spec Grav 1.021 1.003 - PA MD 1.035 [facility] UA Blood NEG NEG [facility] UA pH 6.0 5.0 - 9.0 [facility] UA Protein 20 (A) NEG mg/dL [facility] UA Urobilinogen NEG NEG [facility] UA Nitrite NEG NEG [facility] UA Leuk Est NEG NEG [facility] UA WBC NOT SEEN 0 - 2 PA MD /[facility] Comment: Some reporting parameters within the Uri nalysis test have changed due to the implementation of new instrumentation in the [facility], allowing greater sensitivity of measurement. Urinalysis results rep orted by the [facility] using existing instrumentation, as well as Urinalysis t esting performed manually or by backup methodology at the [facility] will remain relatively unchanged. New reporting parameters and units will not be reported for all [facility]. UA RBC 13 (H) 0 - 2 /HPF [facility] UA Mucous NOT SEEN Not Seen-Trace /HPF [facility] UA Bacteria NOT SEEN NOT SEEN /HPF [facility] UA Squam Epi OCC None-Occasional /HPF [facility] Specimen Anatomical Collection Method Collection Time Receive d Time (Source) Location / / Volume Laterality Urine 02/05/2023 12:39 02/06/2023 AM CDT 12:42 AM CDT Irina Houston APRN URINE ORDERABLES Performing Organization Address City/State/ZIP Code Phon e Number [facility] CANCER Unless otherwise noted, [place] [address] [place] all lab tests performed by: Division of Pathology and Laboratory Medicine [address] [place] [address] [place] Tip Verification Central Vascular Access Device (01/29/2023 3:08 PM CDT) Justo Ross RN - 01/29/2023 3:08 PM CDT Justo Banuelos RN 01/29/2023 3:08 PM Central Vascular Access Device Tip Verif ication Performed by: Justo Banuelos RN Authorized by: Rashaun Wliey MD [employer] Date device placed: 01/29/2023 Placed by: Justo Banuelos RN Device placement location: [facility] Catheter Type: PICC Catheter lumen: Double lumen [...] By: Rashaun Wiley MD Procedure Location: Inpatient Correctional Counselor present: yes (Saeed GRIFFIN) 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 Informed consent obtained prior to procedure, the risks, benefits, and alternative discussed with patient/designated patient financial representative. Pre-p rocedure the patient was alert. [...] placement. placement and tip verified using tip forensic science technician and place ment and tip verified [...] athologist Signature Hgb 13.3 12.0 - 16.0 [facility] gm/dL [facility] Specimen Anatomical Collection Method Collection Time Receive d Time (Source) Location / / Volume Laterality Blood 01/28/2023 8:24 AM 8:30 CDT AM CDT Mana Powers APRN LAB BLOOD ORDERABLES Performing Organization Address City/State/ZIP Code Phon e Number [facility] CANCER Unless otherwise noted, [place] [address] CENTER all lab tests performed by: Division of Pathology and Laboratory Medicine [facility]5 [address] Tracie Hematocrit (01/28/2023 8:24 AM CDT)Only the most recent of3 resultswithin the time period is included. athologist [facility] Hct 40.6 37.0 - 47.0 [facility] % [facility]ENTER Specimen Anatomical Collection Method Collection Time Receive d Time (Source) Location / / Volume Laterality Blood 01/28/2023 8:24 AM 8:30 CDT AM CDT Mana Powers APRN LAB BLOOD ORDERABLES Performing Organization Address City/[facility]/ZIP Code Phon e Number [facility] CANCER Unless otherwise noted, [address] all lab tests performed by: Division of Pathology and Laboratory Medicine [address] (ABNORMAL) Urinalysis Microscopic Exam (01/26/2023 10:45 PM CDT) athologist [facility] UA WBC 6 (H) 0 - 2 /HPF [facility] Comment: Some reporting parameters within the Uri nalysis test have changed due to the implementation of new instrumentation in the [facility], allowing greater sensitivity of measurement. Urinalysis results rep orted by the [facility] using existing instrumentation, as well as Urinalysis t esting performed manually or by backup methodology at the [facility] will remain relatively unchanged. New reporting parameters and units will not be reported for all campuses. UA RBC <1 0 - 2 /HPF [facility] UA Mucous NOT SEEN Not Seen-Trace /HPF PA MD [facility] UA Bacteria NOT SEEN NOT SEEN /HPF [facility] UA Squam Epi OCC None-Occasional /HPF [facility] Specimen Anatomical Collection Method Collection Time Receive d Time (Source) Location / / Volume Laterality Urine 01/26/2023 10:45 01/26/2023 PM CDT 10:49 PM CDT Amanda Proctor MD LAB BLOOD ORDERABLES Performing Organization Address City/State/ZIP Code Phon e Number [facility] CANCER Unless otherwise noted, [address] all lab tests performed by: Division of Pathology and Laboratory Medicine [address] (ABNORMAL) Urinalysis w/Microscopic if Indicated (01/26/2023 10:45 PM CDT)Only the most recent of2 resultswithin the time period is included. Analysis Performed At Patho logist Time Signature UA Color Straw [facility] UA Appear Clear Clear [facility] UA Glucose 500 (A) NEG mg/dL [facility] UA Bili NEG NEG [facility] UA Ketones NEG NEG mg/dL [facility] UA Spec Grav 1.020 1.003 - [facility] 1.035 [facility] UA Blood NEG NEG [facility] UA pH 5.5 5.0 - 9.0 [facility] UA Protein 30 (A) NEG mg/dL [facility] UA Urobilinogen NEG NEG [facility] UA Nitrite NEG NEG [facility] UA Leuk Est NEG NEG [facility] Specimen Anatomical Collection Method Collection Time Receive d Time (Source) Location / / Volume Laterality Urine 01/26/2023 10:45 01/26/2023 PM CDT 10:49 PM CDT Amanda Proctor MD URINE ORDERABLES Performing Organization Address City/[facility] Phon e Number [facility] Unless otherwise noted, [address] all lab tests performed by: Division of Pathology and Laboratory Medicine [facility] Michelle [place] (ABNORMAL) LDH (01/26/2023 2:44 PM CDT)Only the most recent of3 resultswithin the time period is included. P athologist Signature LDH 289 (H) 135 - 214 [facility] U/L [facility] Comment: Results [...] MD LAB BLOOD ORDERABLES Performing Organization Address City/[facility] Phon e Number [facility] Unless otherwise noted, [address] all lab tests performed by: Division of Pathology and Laboratory Medicine [facility] [employer] (ABNORMAL) Controlled Substance Monitoring Panel, Urine (01/20/2023 12:37 PM CDT) Analysis Performed At Patho logist Time Signature Urine 55.1 mg/dL PA Creatinine [facility] Urine Specific 1.014 PA Vernon [facility] Urine Ph 6.2 [facility] Urine Oxidants Negative Cutoff: PA 200 mg/L [facility] Urine Comment Normal [facility] U Negative Cutoff: PA Barbiturates-Ma 200 ng/mL [facility] U Cocaine Negative Cutoff: PA Lvl-Luu 150 ng/mL [facility] Comment: This cocaine immunoassay targets benzoyl ecgonine the primary metabolite of cocaine. U THC-Luu See Footnote (A) Cutoff: 50 ng/mL [facility] Comment: RESULT: Presumptive Positive [...] testing. Codeine Not Detected Cutoff: 25 ng/mL PA MD ALCALA JASMINE [facility] Comment: Tylenol 3 Iahbtfh-9-ezht-glucuronide Not Detected Cutoff: 100 ng/mL [facility] Comment: Metabolite of codeine Morphine Not Detected Cutoff: 25 ng/mL PA MD ALCALA JASMINE [facility] Comment: [place], [place] Contin; Also a minor metabolite (10%) of codeine and can be seen in low concentra tions (<2,000 ng/mL) with poppy seed ingestion. Xknwrvdh-3-hcvp-glucuronide Not Detected Cutoff: 100 ng/mL [facility] Comment: Metabolite of morphine 6-monoacetylmorphine Not Detected Cutoff: 25 ng/mL [facility] Comment: Metabolite of heroin Hydrocodone Not Detected Cutoff: 25 ng/mL PA MD CECE KERR [facility] Comment: Lortab, [place], Vicodin; Also a very luci r metabolite of codeine and impurity (<1%) of oxycodone. Norhydrocodone Not Detected Cutoff: 25 ng/mL [facility] Comment: Metabolite of hydrocodone Dihydrocodeine Not Detected Cutoff: 25 ng/mL [facility] Comment: Metabolite of hydrocodone Hydromorphone Not Detected Cutoff: 25 ng/mL [facility] Comment: Dilaudid, Exalgo; Also a metabolite of h ydrocodone and a minor (<5%) metabolite of morphine. Svdtvezxuptgi-5-stuk-glucuronide Not Detected Cutoff: 100 [facility] ng/mL [facility] Comment: Metabolite of hydromorphone Oxycodone Present (A) Cutoff: 25 ng/mL PA MD SU OSUNA [facility] Comment: Endocet, Percocet, Oxycontin Noroxycodone Present (A) Cutoff: 25 ng/mL [facility] Comment: Metabolite of oxycodone Oxymorphone Not Detected Cutoff: 25 ng/mL PA MD CECE KERR [facility] Comment: Numorphan, Opana; Also a metabo lite of oxycodone. Pstsnkpwakt-0-prko-glucuronide Not Detected Cutoff: 100 ng/mL [facility] Comment: Metabolite of oxymorphone and/o r naloxone (nornaloxone) Noroxymorphone Present (A) Cutoff: 25 ng/mL [facility] Comment: Metabolite of oxymorphone and/o r naloxone (nornaloxone) Fentanyl Not Detected Cutoff: 2 ng/mL PA MD SU OSUNA [facility] Comment: Actiq, Duragesic, Fentora Norfentanyl Not Detected Cutoff: 2 ng/mL PA [facility] Comment: Metabolite of fentanyl Meperidine Not Detected Cutoff: 25 ng/mL PA [facility] Comment: Demerol Normeperidine Not Detected Cutoff: 25 ng/mL [facility] Comment: Metabolite of meperidine Naloxone Not Detected Cutoff: 25 ng/mL PA MD CARI SCHNEIDER [facility] Comment: Narcan Gzlmtgrn-9-jwln-glucuronide Not Detected Cutoff: 100 ng/mL [facility] Comment: Metabolite of naloxone U Methadone Not Detected Cutoff: 25 ng/mL PA MD CECE KERR [facility] Comment: Dolophine EDDP Not Detected Cutoff: 25 ng/mL PA MD [facility] Comment: Metabolite of methadone Propoxyphene Not Detected Cutoff: 25 ng/mL PA MD Benjamin [facility] Comment: Darvon, Darvocet Norpropoxyphene Not Detected Cutoff: 25 ng/mL [facility] Comment: Metabolite of propoxyphene Tramadol Not Detected Cutoff: 25 ng/mL PA MD [facility] Comment: Tradol, Ultram, Ultracet O-desmethyltramadol Not Detected Cutoff: 25 ng/mL [facility] Comment: Metabolite of tramadol Tapentadol Not Detected Cutoff: 25 ng/mL PA [facility] Comment: Nucynta Njuuwugmzz-qldd-rbqacbatnmv Not Detected Cutoff: 100 ng/mL [facility] Comment: Metabolite of tapentadol Buprenorphine Not Detected Cutoff: 5 ng/mL PA MD Benjamin [facility] Comment: Buprenex, Suboxone Norbuprenorphine Not Detected Cutoff: 5 ng/mL [facility] Comment: Metabolite of buprenorphine Norbuprenorphine Glucuronide Not Detected Cutoff: 20 ng/mL [facility] Comment: Metabolite of buprenorphine Opioid Interpretation See Footnote [facility] Comment: Test detected the presence of oxycodone and one of its metabolites (noroxycodone) along with no roxymorphone (metabolite of oxymorphone). Suspect use of oxymorphone and/or oxycodone within the past three d ays. Trace amounts of oxycodone can be found as an impurity in oxymorphone. ADDITIONAL INFORMATIO N This test was developed and its performa nce characteristics determined by [facility] in a manner co nsistent with CLIA requirements. This test has not been sisi ared or approved by the U.S. Food and Drug Administration. Alprazolam Urine Present (A) Cutoff: 10 ng/mL [facility] Comment: Xanax Alpha-Hydroxyalprazolam Urine Present (A) Cutoff: 10 ng/mL [facility] Comment: Metabolite of Alprazolam Alpha-Hydroxyalprazolam Present (A) Cutoff: 50 ng/mL [facility] Glucuronide Urine [facility] Comment: Metabolite of Alprazolam Chlordiazepoxide Urine Not Detected Cutoff: 10 ng/mL [facility] Comment: Librium Colbazam Urine Not Detected Cutoff: 10 ng/mL [facility] Comment: Donny Onfi N-Desmethylclobazam Urine Not Detected Cutoff: 200 ng/mL [facility] Comment: Metabolite of Clobazam Clonazepam Urine Not Detected Cutoff: 10 ng/mL [facility] Comment: Klonopin, Rivotril 7-Aminoclonazepam Urine Not Detected Cutoff: 10 ng/mL [facility] Comment: Metabolite of Clonazepam Diazepam Urine Not Detected Cutoff: 10 ng/mL [facility] Comment: Valium Nordiazepam Urine Not Detected Cutoff: 10 ng/mL [facility] Comment: Metabolite of Chlordiazepoxide, Diazepam, or Prazepam. Flunitrazepam Urine Not Detected Cutoff: 10 ng/mL [facility] Comment: Rohypnol 7-Aminoflunitrazepam Urine Not Detected Cutoff: 10 ng/mL [facility] Comment: Metabolite of Flunitrazepam FlUrinerazepam Urine Not Detected Cutoff: 10 ng/mL [facility] Comment: Dalmane 2-Hydroxy Ethyl Flurazepam Not Detected Cutoff: 10 ng/mL [facility] Comment: Metabolite of Flurazepam Lorazepam Urine Not Detected Cutoff: 10 ng/mL [facility] Comment: Ativan Lorazepam Glucuronide Not Detected Cutoff: 50 ng/mL [facility] Comment: Metabolite of Lorazepam Midazolam Urine Not Detected Cutoff: 10 ng/mL [facility] Comment: Versed Alpha-Hydroxy Midazolam Not Detected Cutoff: 10 ng/mL [facility] Comment: Metabolite of Midazolam Oxazepam Urine Not Detected Cutoff: 10 ng/mL [facility] Comment: Serax; Also a metabolite of Chlordiazepo xide, Diazepam, or Temazepam. Oxazepam Glucuronide Urine Not Detected Cutoff: 50 ng/mL [facility] Comment: Metabolite of Oxazepam Prazepam Urine Not Detected Cutoff: 10 ng/mL [facility] Comment: Centrax Temazepam Urine Not Detected Cutoff: 10 ng/mL [facility] Comment: Restoril; Also a metabolite of Diazepam. Temazepam Glucuronide Not Detected Cutoff: 50 ng/mL [facility] CANCER Urine CENTER Comment: Metabolite of Temazepam Triazolam Urine Not Detected Cutoff: 10 ng/mL [facility] Comment: Halcion Alpha-Hydroxy Triazolam Not Detected Cutoff: 10 ng/mL [facility] CANCER Urine CENTER Comment: Metabolite of Triazolam Zolpidem Urine Not Detected Cutoff: 10 ng/mL [facility] Comment: Ambien Zolpidem Vhjhq-2-Sdnouqjjvn Present (A) Cutoff: 10 ng/mL [facility] Acid Urine [facility] Comment: Metabolite of Zolpidem Benzodiazepine Interp Urine See Footnote [facility] Comment: Test detected the presence of alprazolam and two of its metabolites (alpha-hydroxyalprazolam and alpha-hydroxyalprazolam glucuronide). Agarwal spect use of alprazolam within the past three days. Test detected the presence of zolpidem p qkuea-5-hsmeealvrx acid (metabolite of zolpidem) only. Susp ect use of zolpidem within the past four days. ADDITIONAL INFORMATIO N This test was developed and its performa nce characteristics determined by [facility] in a manner co nsistent with CLIA requirements. This test has not been sisi ared or approved by the U.S. Food and Drug Administration. Methamphetamine Not Detected Cutoff: 100 ng/mL [facility] Comment: Desoxyn Amphetamine Not Detected Cutoff: 100 ng/mL [facility] Sourav [facility] Comment: Dyanavel XR, Adzenys ER, Adderall, Vyvan se; Also a metabolite of methamphetamine 3,4-Methylenedioxymethamphetamine Not Detected Cutoff: 100 [facility] (MDMA) ng/mL [facility] 3,2-Dpyzytvzcmsgvg-C-Ethylamphetamine Not Detected Cutoff: 100 [facility] (MDEA) ng/mL [facility] 3,4-Methylenedioxyamphetamine (MDA) Not Detected Cutoff: 100 [facility] ng/mL [facility] Comment: Also a metabolite of MDMA and/o r MDEA Ephedrine Not Detected Cutoff: 100 ng/mL [facility] Pseudoephedrine Present (A) Cutoff: 100 ng/mL [facility] Comment: Sudafed Phentermine Not Detected Cutoff: 100 ng/mL PA MD Benjamin [facility] Comment: Adipex-P, Lomaira, Qsymia Phencyclidine (PCP) Not Detected Cutoff: 20 ng/mL [facility] Methylphenidate Not Detected Cutoff: 20 ng/mL [facility] Comment: Ritalin, Concerta Ritalinic acid Not Detected Cutoff: 100 ng/mL [facility] Comment: Metabolite of methylphenidate Stimulant Interpretation See Footnote [facility] Comment: Test detected the presence of pseudoephe drine. Suspect use of pseudoephedrine within the past three days. ADDITIONAL INFORMATIO N This test was developed and its performa nce characteristics determined by [facility] in a manner co nsistent with CLIA requirements. This test has not been sisi ared or approved by the U.S. Food and Drug Administration. Test Performed by: [place] [address] Automobile Body Repairer Helper: Yonathan Guzman M.D. Ph. D.; CLIA# [id number] Patients Current Medications NOT ANSWERED [facility] Comment: ADDITIONAL INFORMATIO N Accuracy and completeness of declared me dications on reports solely dependent on information submitted by client. Specimen Anatomical Collection Method Collection Time Receive d Time (Source) Location / / Volume Laterality Urine 01/20/2023 12:37 01/20/2023 8:31 PM CDT PM CDT Rogerio Kramer MD URINE ORDERABLES Performing Organization Address City/State/ZIP Code Phon e Number [facility] CANCER Unless otherwise noted, [place], [place] [id number] [place] [address] all lab tests performed by: Division of Pathology and Laboratory Medicine [address] (ABNORMAL) POC Urine Drug Screen (01/20/2023 12:37 PM CDT) athologist Signature POC U Amp Negative Negative [facility] Comment: Drug Abuse Cutoff Concentration: Cutoff: 1000 ng/mL POC U Barbit Negative Negative [facility] Comment: Drug Abuse Cutoff Concentration: 300 ng/mL POC U Benzo Positive (A) Negative [facility] Comment: Drug Abuse Cutoff Concentration: Cutoff: 300 ng/ mL POC U Cocaine Negative Negative [facility] Comment: Drug Abuse Cutoff Concentration: Cutoff: 300 ng/mL POC U THC Positive (A) Negative [facility] Comment: Drug Abuse Cutoff Concentration: Cutoff: 50 ng/mL POC U Methd Negative Negative [facility] Comment: Drug Abuse Cutoff Concentration: Cutoff: 300 ng/mL POC U Mampht Negative Negative [facility] Comment: Drug Abuse Cutoff Concentration: Cutoff: 1000 ng/mL POC U Opiate Negative Negative [facility] Comment: Drug Abuse Cutoff Concentration: Cutoff: 2000 ng/mL POC U Oxycod Positive (A) Negative [facility] Comment: Drug Abuse Cutoff Concentration: Cutoff: 100 ng/mL Due to the assay cross reactivity betwee n Oxycodone and Opiates, and lower sensitivity compared to GC-MS method, the test results may be falsely positive or falsely negative. Confirmation with concurrent GC-MS results is recommended. POC U PCP Negative Negative [facility] Comment: Drug Abuse Cutoff Concentration: Cutoff: 25 ng/mL POC U TCA Negative Negative [facility] Comment: Drug Abuse Cutoff Concentration: Cutoff: 1000 ng/mL POC U PPX Negative Negative [facility] Comment: Drug Abuse Cutoff Concentration: Cutoff: [...] 1:10 Catch PM CDT PM CDT Narrative [facility] - 1:30 PM CDT The POC Urine Qualitative Drug Screen Pa augusto report is intended for use in clinical monitoring or management of patients. Un confirmed screening results must not be used for non-medical purposes such as legal o r employment-related testing. Rogerio Kramer MD POINT OF CARE TEST ORDERA BLES Performing Organization Address City/State/ZIP Code Phon e Number [facility] CANCER Unless otherwise noted, [place] [address] [place] all lab tests performed by: Division of Pathology and Laboratory Medicine [address] Tetrahydocannabinol (THC), Quantitative, Urine (01/20/2023 12:37 PM CDT) athologist Signature U THC n/a PA GC/MS-[facility] U THC see note CARLA GRIFFIN [facility] Comment: Carboxy-THC Confirmation, U: Carboxy-THC Interpretation: Positive ADDITIONAL INFORMATION: This report is intended for use in clini mari monitoring and management of patients. It is not intend ed for use in employment-related testing. Delta-8 Carboxy-Tetrahydrocannabinol by LC-MS/MS: 672 ng/mL Reference Value: Cutoff: 5 Delta-9 Carboxy-Tetrahydrocannabinol by LC-MS/MS: 42 ng/mL Reference Value: Cutoff: 5 PERFORMING LAB: [facility] [address] [facility] [address] Yonathan Guzman M.D. Ph.D. [id number] U [facility] n/a [facility] CANCER CENTER Specimen Anatomical Collection Method Collection Time Receive d Time (Source) Location / / Volume Laterality Urine, Clean 01/20/2023 12:37 01/27/2023 Catch PM CDT 11:34 AM CDT Rogerio Kramer MD URINE ORDERABLES Performing Organization Address City/State/ZIP Code Phon e Number [facility] CANCER Unless otherwise noted, [place] [address] [place] all lab tests performed by: Division of Pathology and Laboratory Medicine [address] [place] [address] X-ray Knee 1 Or 2 Views Right [...] OU - Both Eyes (12/29/2022 10:51 AM [facility]) Specimen (Source) Anatomical Location Collection Method / Collectio n Time Received Time / Laterality Volume Narrative Suzanne Mcgrath MD - 12/30/2022 11:50 AM [facility] Right Eye Threshold was 30-2. The AVF [...] OU - Both Eyes (12/29/2022 10:43 AM [facility]) Specimen (Source) Anatomical Location Collection Method / Collectio n Time Received Time / Laterality Volume Narrative Suzanne Mcgrath MD - 12/30/2022 11:44 AM [facility] Normal average thickness of peripapillary retinal nerve fiber layer . With borderline thinning temporally righ t eye Suzanne Mcgrath MD OPHTHALMOLOGY IMG ORDERABLES OCT, Retina - OU - Both Eyes (12/29/2022 10:43 AM [facility]) Specimen (Source) Anatomical Location Collection Method / Collectio n Time Received Time / Laterality Volume Narrative Suzanne Mcgrath MD - 12/30/2022 11:44 AM [facility] This result has an attachment that is no t available. Normal macular volume. No sign of serou s retinopathy Suzanne Mcgrath MD OPHTHALMOLOGY IMG ORDERABLES COVID-19 (SARS-CoV-2) PCR-Asymptomatic [facility] (12/23/2022 12:01 PM [facility]) [facility] Method Time Signature COVID19 (SARS Not Detected Not Detected [place] CoV-2) [facility] Comment: This test is a qualitative reverse-trans [...] fact sheet for patients provided by the plant operations coordinator ( [employer]) can be rev iewed at: https://www.fda.gov/media/835206/treasure d. A fact sheet for Health Care providers is provided by the plant operations coordinator ([employer]) and can be reviewed at: https://www.fda.gov/media/012064/download Results must be interpreted within the c [...] were verified by the Microbiology Laboratory at [facility], CLIA Accreditation #: [id number] and CAP Accreditation #: [id number]. COVID19 SARS Source BAG SEALER Swab PA [facility] COVID19 SARS Indication Pre-Radiation Therapy [facility] Specimen (Source) Anatomical Collection Method Collection Time Re ceived Time Location / / Volume Laterality Nasopharyngeal Swab 12/23/2022 12:01 12/03 PM [facility] 3:41 PM [facility] Winter Luu MD MICROBIOLOGY - GENERAL ORDER GODWIN Performing Organization Address City/State/ZIP Code Phon e Number [facility] CANCER Unless otherwise noted, [place] [address] [place] all lab tests performed by: Division of Pathology and Laboratory Medicine [address] [place] [address] [place] OCT, Optic Nerve - OU - Both Eyes (12/15/2022 10:37 AM [facility]) Specimen (Source) Anatomical Location Collection Method / Collectio n Time Received Time / Laterality Volume Sheridan Angulo MD - 12/17/2022 12:25 PM [facility] Right Eye Average nerve fiber layer thickness cons istent with normal Left Eye Average nerve fiber layer thickness cons istent with normal Sheridan Alvarez MD OPHTHALMOLOGY IMG ORDERABLES OCT, Retina - OU - Both Eyes (12/15/2022 10:37 AM [facility]) Specimen (Source) Anatomical Location Collection Method / Collectio n Time Received Time / Laterality Volume Narrative Sheridan Alvarez MD - 12/17/2022 12:25 PM [facility] Right Eye This is the baseline exam. Findings incl ude normal observations. Left Eye This is the baseline exam. Findings incl ude normal observations. Sheridan Alvarez MD OPHTHALMOLOGY IMG ORDERABLES Fundus Photos - OU - Both Eyes (12/15/2022 10:37 AM [facility]) Specimen (Source) Anatomical Location Collection Method / Collectio n Time Received Time / Laterality Volume Sheridan Angulo MD - 12/17/2022 12:25 PM [facility] Right Eye Basline Exam. Sheridan Alvarez MD OPHTHALMOLOGY IMG ORDERABLES 3D Dental Imaging (iCAT) (12/15/2022 8:42 AM [facility]) Specimen (Source) Anatomical Location Collection Method / Collectio n Time Received Time / Laterality Volume Narrative Systemgenerated, Documentation - 023 8:42 AM [facility] This procedure requires no interpretatio n from the radiologist. Benito Saini DDS IMG NON DI ORDERABLES FL Modified Barium Swallow w Speech (12/14/2022 2:37 PM [facility]) Anatomical Region Laterality Modality Neck Radio Fluoroscopy Specimen (Source) Anatomical Collection Method Collection Time Re ceived Time Location / / Volume Laterality 12/14/2022 2:58 PM [facility] Impressions 12/14/2022 3:08 PM [facility] 1. Flash penetration without aspiration seen with thin liquid barium. 2. Please refer to the separately dictat ed speech pathology report for further details and recommendations. 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 There was no pharyngeal residue. Pharyngeal [...] ORDERABLES (ABNORMAL) ABG Venous (12/11/2022 6:21 PM [facility]) P athologist Signature pH Raghavendra 7.40 7.32 - 7.43 [facility] Comment: Results are corrected for a bod y temp of 37C pCO2 Raghavendra 47.6 41.0 - 51.0 mmHg PA MD [facility] pO2 Raghavendra 52 mmHg PA MD [facility] HCO3 Raghavendra 29 (H) 21 - 28 mmol/L [facility] Base Excess Raghavendra 3 -2 - 3 mmol/L PA MD [facility] [place] O2 Sat Raghavendra 87 % PA [facility] Specimen Anatomical Collection Method Collection Time Receive d Time (Source) Location / / Volume Laterality Blood 12/11/2022 6:21 PM 6:29 [facility] PM [facility] Travis Lopez MD LAB BLOOD ORDERABLES Performing Organization Address City/State/ZIP Code Phon e Number [facility] CANCER Unless otherwise noted, [address] all lab tests performed by: Division of Pathology and Laboratory Medicine [address] [place] [address] Ketone Bodies Qualitative (12/11/2022 5:19 PM [facility]) athologist [facility] UA Ketones NEG NEG mg/dL [facility] Specimen Anatomical Collection Method Collection Time Receive d Time (Source) Location / / Volume Laterality Urine 12/11/2022 5:19 PM 5:24 [facility] PM [facility] Waleska Salinas PASTE PLANT SUPERVISOR URINE ORDERABLES Performing Organization Address City/[facility]/ZIP [facility] Phon e Number [facility] CANCER Unless otherwise noted, [address] all lab tests performed by: Division of Pathology and Laboratory Medicine [address] [place] [address] POC Critical (12/11/2022 3:34 PM [facility])Only the most recent of2 resultswithin the time period is included. athologist [facility] POC Critical See Note POC TEL[facility] Comment Comment: Test performer notified Orderin g Licensed Provider and /or designee of POC Glucose Screen critical Results.. Specimen Anatomical Collection Method Collection Time Receive d Time (Source) Location / / Volume Laterality Blood 12/11/2022 3:34 PM 3:34 [facility] PM [facility] Travis Lopez MD POINT OF CARE TEST ORDERABLE S Performing Organization Address City/[facility]/ZIP Code Phon e Number POC [facility] Unless otherwise noted, [place] [address] lab tests performed by: Division of Pathology and Laboratory Medicine [address] [place] [address] (ABNORMAL) POC VBG+Lac (12/09/2022 9:36 PM [facility]) athologist Signature POC VB pH 7.46 (H) [...] Clean Dev Yes POC [facility] Performing Lab [facility] POC TELCO R Comment: [facility] Clinical [facility], [facility] [place] [address]; Lab Direct or: Chula Jacob MD; Waived Point of Care Testing - Gabrielle Mueller MD Specimen Anatomical Collection Method Collection Time Receive d Time (Source) Location / / Volume Laterality Blood 12/09/2022 9:36 PM 3 9:36 [facility] PM [facility] Roberto Carlos Walsh MD POCT ORDERABLES - DEVICE Performing Organization Address City/State/ZIP Code Phon e Number POC [facility] Unless otherwise noted, [place] [address] lab tests performed by: Division of Pathology and Laboratory Medicine [facility] Judalary Hodges Ammonia Level (12/09/2022 6:01 PM [facility]) athologist Signature Ammonia 18 11 - 51 [facility] Specimen Anatomical Collection Method Collection Time Receive d Time (Source) Location / / Volume Laterality Blood 12/09/2022 6:01 PM 3 6:15 [facility] PM [facility] Tammy Mike MD LAB BLOOD ORDERABLES Performing Organization Address City/[facility]/ZIP Code Phon e Number [facility] CANCER Unless otherwise noted, [address] all lab tests performed by: Division of Pathology and Laboratory Medicine Brian LOUIS MD [facility] CHRISTINE: Mutation Analysis Precision Panel Report (12/04/2022 10:56 AM [facility]) Specimen (Source) Anatomical Collection Method Collection Time Re ceived Time Location / / Volume Laterality 12/04/2022 10:56 AM [facility] Narrative This result has an attachment that is no t available. Lorena LOUIS [facility] (MISSY GRIFFIN) Solid Tumor Genomic Assay Fusions 2018 Interpretation and Report (12/04/2022 10:56 AM [facility]) Specimen Anatomical Collection Method Collection Time Receive d Time (Source) Location / / Volume Laterality 12/04/2022 10:56 12/04/2022 AM [facility] 10:56 AM [facility] Narrative This result has an attachment that is no t available. Lorena [facility] (MISSY GRIFFIN) Molecular Diagnostics Specimen Collection -FFPE (12/04/2022 10:56 AM [facility]) [facility] gist Method Time Signature Molecular Yes PA [facility] (Received) CANCER CENTER Jael Ap Link [id number] [facility] Block Number BLANK [facility] (Qualitative) [facility] Outside [id number] [facility] (Qualitative) CANCER CENTER Specimen Anatomical Collection Method Collection Time Receive d Time (Source) Location / / Volume Laterality FFPE 12/04/2022 10:56 12/04/2022 AM [facility] 10:56 AM [facility] Lorena LOUIS MD NONBLOOD COLLECTIO NS Performing Organization Address City/State/ZIP Code Phon e Number [facility] CANCER Unless otherwise noted, [place] [address] CENTER all lab tests performed by: Division of Pathology and Laboratory Medicine [address] [place] [address] MRI Skull Base with and without Contrast (11/30/2022 11:12 AM [facility]) Anatomical Region Laterality Modality Head Magnetic Resonance Specimen (Source) Anatomical Collection Method Collection Time Re ceived Time Location / / Volume Laterality 12/01/2022 9:21 AM [facility] Impressions 12/01/2022 1:06 PM [facility] 1. 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 2. Tumor likely involves the lesser wi ng of the left sphenoid bone. 3. No lateral retropharyngeal or visua lized cervical adenopathy. Narrative 12/01/2022 1:06 PM [facility] FULL RESULT: Examination: MRI SKULL BASE WITH [...] visuali zed cervical adenopathy. Lorena Hdez APRN IM MRI ORDERABLES PETCT Contrast Enhanced Initial Treatment Strategy (11/27/2022 3:57 PM [facility]) Anatomical Region Laterality Modality Whole Body Positron Emission To mography (PET) Specimen (Source) Anatomical Collection Method Collection Time Re ceived Time Location / / Volume Laterality 11/30/2022 8:31 AM [facility] Impressions 11/30/2022 8:38 AM [facility] Subtle activity associated with subtle asymmetric fullness in posterior left nasal pharynx is compatible with reported primary tumor. No suspicious activity to suggest regional jeremiah or distant metastases. Narrative 11/30/2022 8:38 AM [facility] FULL RESULT: Examination: Contrast-Enhanced FDG PET /CT, [...] MD YUN Blood Control (11/26/2022 1:07 PM [facility]) athologist Signature Molecular Yes [facility] (Received) Specimen Anatomical Collection Method Collection Time Receive d Time (Source) Location / / Volume Laterality Blood 11/26/2022 1:07 PM 3 9:13 [facility] AM [facility] Lorena Hdez APRN MDA IP HP MOLECULAR DIAG IF ORDERABLES Performing Organization Address City/State/ZIP Code Phon e Number [facility] CANCER Unless otherwise noted, [place] [address] CENTER all lab tests performed by: Division of Pathology and Laboratory Medicine [address] [place] [address] [place] (ABNORMAL) Vitamin D 25OH (11/26/2022 1:07 PM [facility]) athologist Signature Vitamin D 25 OH 21 (L) 30 - 100 TYRONZA ng/mL Comment: Reference Range: Deficiency: <10 ng/mL Insufficiency: 10-29 ng/mL Sufficiency: 30-100 ng/mL Potential toxicity: >100 ng/mL [facility] [address] [place] [address] Specimen Anatomical Collection Method Collection Time Receive d Time (Source) Location / / Volume Laterality Blood 11/26/2022 1:07 PM 3 1:19 [facility] PM [facility] Lorena Hdez APRN LAB BLOOD ORDERABLES Performing Organization Address City/[facility] [place] [address] [address] [facility] (ABNORMAL) Uric Acid (11/26/2022 1:07 PM [facility]) athologist Signature Uric Acid 6.5 (H) 2.4 - 5.7 TYRONZA mg/dL Comment: [facility] [address] [facility], [place] [address] Specimen Anatomical Collection Method Collection Time Receive d Time (Source) Location / / Volume Laterality Blood 11/26/2022 1:07 PM 1:19 [facility] PM [facility] Lorena Hdez APRN LAB BLOOD ORDERABLES Performing Organization Address City/[facility]/ZIP [place] [address] [address] [facility] NTRK3 Fusion Material Request (11/26/2022 12:43 PM [facility]) Component Value Ref Test Analysis Performed At [facility] Instructure Range Method Time Signature Archived The test is to be 12/04/2022 [facility] Material performed on 8:01 AM [facility] tissue from case [id number]. The case report, slides, and blocks for [...] Volume Laterality Tissue 11/26/2022 12:43 11/26/2022 PM [facility] 12:43 PM [facility] Lorena Hdez APRN [facility] IP AP BIOMARKERS Performing Organization Address City/State/ZIP Code Phon e Number [facility] [place] [address] [address] MD NTRK2 Fusion Material Request (11/26/2022 12:43 PM [facility]) Component Value Ref Test Analysis Performed At [facility] gist Range Method Time Signature Archived The test is to be 12/04/2022 [facility] Material performed on 8:01 AM [facility] tissue from case [id number]. The case report, slides, and blocks for [...] Volume Laterality Tissue 11/26/2022 12:43 11/26/2022 PM [facility] 12:43 PM [facility] Lorena Hdez APRN [facility] IP AP BIOMARKERS Performing Organization Address [facility] Phon e Number [place] [address] [address] Hodges MD NTRK1 Fusion Material Request (11/26/2022 12:43 PM [facility]) Component Value Ref Test Analysis Performed At [facility] gist Range Method Time Signature Archived The test is to be 12/04/2022 [facility] Material performed on 8:01 AM [facility] tissue from case [id number]. The case report, slides, and blocks for [...] Volume Laterality Tissue 11/26/2022 12:43 11/26/2022 PM [facility] 12:43 PM [facility] Lorena Hdez APRN [facility] IP AP BIOMARKERS Performing Organization Address [facility] Phon e Number [facility] [place] [address] [address] Hodges MD ERBB2 Mutation Analysis Material Request (11/26/2022 12:43 PM [facility]) Component Value Ref Test Analysis Performed At [facility] Instructure Range Method Time Signature Archived The test is to be 12/04/2022 [facility] Material performed on 8:01 AM [facility] tissue from case [id number]. The case report, slides, and blocks for [...] Volume Laterality Tissue 11/26/2022 12:43 11/26/2022 PM [facility] 12:43 PM [facility] Lorena Hdez APRN [facility] IP AP BIOMARKERS Performing Organization Address City/State/ZIP Code Phon [place] [address] [address] Hodges MD ALK Mutation Analysis Material Request (11/26/2022 12:43 PM [facility]) Component Value Ref Test Analysis Performed At [facility] Instructure Range Method Time Signature Archived The test is to be 12/04/2022 [facility] Material performed on 8:02 AM [facility] tissue from case [id number]. The case report, slides, and blocks for [...] Volume Laterality Tissue 11/26/2022 12:43 11/26/2022 PM [facility] 12:43 PM [facility] Lorena Hdez APRN [facility] IP AP BIOMARKERS Performing Organization Address City/State/ZIP Code Ph[place] [address] [address] Hodges MD MTOR Mutation Material Request (11/26/2022 12:43 PM [facility]) Component Value Ref Test Analysis Performed At [facility] Method Time Signature Archived The test is to be 12/04/2022 [facility] Material performed on 8:01 AM [facility] tissue from case [id number]. The case report, slides, and blocks for [...] Volume Laterality Tissue 11/26/2022 12:43 11/26/2022 PM [facility] 12:43 PM [facility] Lorena Kayla Hdez APRN [facility] IP AP BIOMARKERS Performing Organization Address City/State/ZIP Code Phon e Number [facility] [place] [address] 1515 Michelle Hodges MD PTEN Mutation Material Request (11/26/2022 12:43 PM [facility]) Component Value Ref Test Analysis Performed At [facility] Method Time Signature Archived The test is to be 12/04/2022 [facility] Material performed on 8:02 AM [facility] tissue from case [id number]. The case report, slides, and blocks for [...] Volume Laterality Tissue 11/26/2022 12:43 11/26/2022 PM [facility] 12:43 PM [facility] Lorena Hdez APRN [facility] IP AP BIOMARKERS Performing Organization Address City/State/ZIP Code [place] [address] 1515 Michelle Hodges MD EGFR Mutation Material Request (11/26/2022 12:43 PM [facility]) Component Value Ref Test Analysis Performed At [facility] gist Range Method Time Signature Archived The test is to be 12/04/2022 [facility] Material performed on 8:02 AM [facility] tissue from case [id number]. The case report, slides, and blocks for [...] Volume Laterality Tissue 11/26/2022 12:43 11/26/2022 PM [facility] 12:43 PM [facility] Lorena Hdez APRN [facility] IP AP BIOMARKERS Performing Organization Address City/[facility]/ZIP Code [place] [address] 1515 Michelle Hodges IHC PD-L1 Material Request (11/26/2022 12:43 PM [facility]) Specimen Anatomical Collection Method Collection Time Receive d Time (Source) Location / / Volume Laterality Tissue 11/26/2022 12:43 11/26/2022 PM [facility] 12:43 PM [facility] Lorena Hdez APRN [facility] IP AP BIOMARKERS Performing Organization Address City/State/ZIP Code [place] [address] 1515 Michelle Hodges IHC HER2/arcenio Material Request (11/26/2022 12:43 PM [facility]) Specimen Anatomical Collection Method Collection Time Receive d Time (Source) Location / / Volume Laterality Tissue 11/26/2022 12:43 11/26/2022 PM [facility] 12:43 PM [facility] Lorena Garza Lemuel PASTE PLANT SUPERVISOR [facility] IP AP BIOMARKERS Performing Organization Address City/State/ZIP Code Phon e Number [facility] [place] [address] 1515 Michelle Tracyvard Testosterone Level (11/17/2022 12:11 PM [facility]) athologist Signature Testoster Tot <3 3 - 41 TYRONZA ng/dL Comment: Reference Ranges: Male: Age 20 - 49 249 - 836 Age >=50 1 93 - 740 Female: Age 20 - 49 8 - 48 Age >=50 3 - 41 [facility] [address] [place] [phone] Specimen Anatomical Collection Method Collection Time Receive d Time (Source) Location / / Volume Laterality Blood 11/17/2022 12:11 11/17/2022 PM [facility] 12:12 PM [facility] Red Berman PASTE PLANT SUPERVISOR LAB BLOOD ORDERABLES Performing Organization Address City/State/ZIP [place] [address] [place] [address] Pathology Outside Interpretation (10/16/2022) Component Value Ref Test Analysis Performed Pathologis t Range Method Time At [facility] Materials Accession#, Stained, Block, Unstained Collected Received 11/27/2022 [facility] Received A. [id number], 7 SS, 1 BLOCKS, 0 USS 10/16/2022 11/24/2022 5:08 PM [facility] Addendum 1 At the request of the donell machado physician the following studies were performed and interpreted at [facility]. 11/27/2022 [facility] Addendum 5:08 PM electronic ally The tumor cells are negative for Her2 (0%) by immunohi stochemical analysis. [facility] signed by Ashleigh The tumor cells are positive for cleaved NOTCH1 (< 70% ) by immunohistochemical analysis. MD Gerald on 11/27/2022 at PD-L1 (Clone 22C3, [employer]) Combine d Positive Score (CPS): is less than 1 5:08 PM Assay Information: This assa y is manufactured by [employer] and uses a monoclonal anti-PD-L1, clone 22C3. It is performed on formalin-fixed paraffin- embedded tissue using an [employer] Dako autostainer a nd polymer based detection k it, as specified by the plant operations coordinator. It is approved for use as a dishwashing machine operator diagnostic for specific therapies on certain tumor [...] is defined as CPS 100. Diagnosis Outside ([id number], 7 SS, 1 BLOCKS, 0 USS, colle cted on 10/16/2022): 11/27/2022 [facility] Electronically 5:08 PM signed by Nasopharynx, biopsy: [facility] Ashleigh ADENOID CYSTIC CARCINOMA, CRIBRIFORM TYPE see comment MD Gerald on 11/26/2022 at /SALEEM 9:43 AM Comment Submitted 11/27/2022 [facility] immunohistochemical 5:08 PM stains performed by [facility] referring institution show that CK7 highlights the epithelial cells, and p63 and p40 highlights the myoepithelial cells. The morphology and immunophenotype is supportive of this classification. Biomarker Tumor block: 11/27/2022 [facility] Block(s) [id number] 5:08 PM [facility] Disclaimer "Some tests reported 11/27/2022 [facility] here may have been 5:08 PM developed and [facility] performance characteristics determined by [facility] Pathology and Laboratory Medicine. These tests have not been specifically cleared or approved by the U.S. Food and Drug Administration. If applicable, controls were reviewed and showed appropriate reactivity." Specimen (Source) Anatomical Collection Method Collection Time Re ceived Time Location / / Volume Laterality Tissue 10/16/2022 11/24/2022 3:02 PM [facility] Alexa Alvarez MD LAB PATHOLOGY ORDERABLES Performing Organization Address City/State/ZIP Code Phon e Number [facility] AP [facility] [place] [address] 1515 Juda Webster after 08/16/2022 Insurance Payer Benefit Plan / Subscriber ID Effective Phone Address T ype Group Dates MEDICARE MEDICARE PART A [id number] 2010-Pres [phone] [place]OV[place]AS Medicare AND B ent [id number] SOLUTIONS [address] [facility] [phone] [place]ID [place]ID [place] [id number] 2022-Pres [address] Medicaid TRADITIONAL TRADITIONAL ent [id number] [place] [address] Advance Directives Code Status Date Activated Date Inactivated Comments Full Code 02/06/2023 1:33 AM 02/16/2023 6:41 PM Code Status Date Activated Date Inactivated Comments Full Code 01/26/2023 5:50 PM 02/01/2023 8:34 PM Full Code 01/11/2023 10:19 PM 01/18/2023 9:39 PM Full Code 12/09/2022 10:42 PM 12/15/2022 9:30 PM Care Teams Drafter Electromechanical Relationship Specialty Start Date End Date Bina Obando PCP - External Otolaryngology 11/12/22 MD Joana Referring [address] [place] [address] [phone] Kenya Agarwal MD PCP - General Head and Neck Surgery 11/12/[address] [place] [phone] Trent Irving MD Family Practice 11/26/[address] [place], [place] [phone] Randall Sheriff Family Practice 11/26/22 MD Maciej [address] [place] [address] Vignesh Waddell, Pulmonary Medicine 11/26/[address] [place] [id number] Naa Miller Cardiology 11/26/22 MD Emerald [phone] [place] [phone] Tapan Harper Gastroenterology 11/26/22 MD Rosalio [address] [place] [address] Rafael Rosas, Ophthalmology 11/26/22 [address] [place] [phone] Suzanne Mcgrath, Consulting Physician Ophthalmology 12/29/[address] [place] [address] Winter Luu, Consulting Physician Radiation Oncology [address] [place] [phone] Vaibhav Rosario, Consulting Physician Medical Oncology 11/26/[address] [place] [phone] Williams, Consulting Physician Pain Management 01/20/23 MD Rogerio [address] [place] [phone] Rosana Harkins MD Consulting Physician Hematology and Oncology 03/31/[address] [place] [phone]
[2023-08-16 15:41] LABS: Absolute Lymphocytes (CBC) 1.9 K/uL (0.7-4.9); Hematocrit 43.5 % (36.0-45.0); Lymphocytes % 26.9 % (15.3-44.8); MCV 91.9 fL (80-100); MPV 8.8 fL (7.6-11.3); Platelets 177 thou/uL (152-406); RBC Red Blood Cell Count 4.73 M/uL (3.86-4.86)
[2023-08-16 16:00] LABS: Albumin 3.5 g/dL (3.4-5.0); Bilirubin Total 0.4 mg/dL (0.2-1.0); Potassium 3.6 mEq/L (3.5-5.1); Protein, Total 7.5 g/dL (6.4-8.2)
[2023-08-16] MEDS ORDERED: PROCHLORPERAZINE 5 MG TAB PO ONE (16:00)
--- NOTE | 2023-08-16 16:07 | EDPHYS ---
Physician Documentation [facility] Name: Maria De Jesus Acosta Age: 58 yrs Sex: Female : 1965 Arrival Date: 08/16/2023 Time: 14:06 Bed 7 Private MD: ED Physician Jaspreet Rhoades HPI: 08/16 14:22 This 58 yrs old Female presents to ER via Wheelchair with complaints of ms3 Medication Refill. 14:22 58-year-old female with past medical history of asthma, diabetes, congestive heart ms3 failure, hypertension, nasal cancer, Crohn's, COPD, chronic nausea and vomiting presents to the emergency department for nausea and vomiting. Patient states her symptoms began at 4 AM. Patient states her physician recently switched her off prochlorperazine 1 tablet p.o. every 6 hours as needed nausea and vomiting to Zofran 4 mg ODT. Patient states the Zofran did not give her relief. Patient states she would also like to be checked out while she is here. Historical: - Allergies: 14:18 Doxycycline; ll1 14:18 kiwi; ll1 14:18 metoclopramide HCl; ll1 14:18 orange juice; ll1 14:18 Reglan; ll1 - PMHx: 14:18 Asthma; CHF; COPD; Crohn's; Diabetes - NIDDM; Hypertension; Nasal cancer; ll1 - PSHx: 14:18 Appendectomy; Cholecystectomy; Ligation of fallopian tube; partial hysterectomy; ll1 Shoulder; - Immunization history:: Adult Immunizations up to date. - Social history:: Smoking status: Patient denies any tobacco usage or history of. ROS: 14:22 Constitutional: Negative for fever, and chills. Neck: Negative for injury, pain, and ms3 swelling, Cardiovascular: Negative for chest pain, and palpitations. Respiratory: Negative for shortness of breath, cough, wheezing, and pleuritic chest pain, 14:22 MS/Extremity: Negative for injury and deformity, Skin: Negative for injury, rash, and discoloration, 14:22 Abdomen/GI: Positive for nausea and vomiting, 14:22 All other systems are negative, Exam: 14:22 Constitutional: This is a well developed, well nourished patient who is awake, alert, ms3 and in no acute distress. Head/Face: Normocephalic, atraumatic. Neck: Trachea midline, no cervical lymphadenopathy. Supple, full range of motion without nuchal rigidity, or vertebral point tenderness. No Meningismus. Chest/axilla: Normal chest wall appearance and motion. Nontender with no deformity. Cardiovascular: Regular rate and rhythm with a normal S1 and S2. No gallops, murmurs, or rubs. Normal PMI, no JVD. No pulse deficits. Respiratory: Lungs have equal breath sounds bilaterally, clear to auscultation and percussion. No rales, rhonchi or wheezes noted. No increased work of breathing, no retractions or nasal flaring. Abdomen/GI: Soft, non-tender, with normal bowel sounds. No distension or tympany. No guarding or rebound. No evidence of tenderness throughout. Skin: Warm, dry with normal turgor. Normal color with no rashes, no lesions, and no evidence of cellulitis. MS/ Extremity: Pulses equal, no cyanosis. Neurovascular intact. Full, normal range of motion. Vital Signs: 14:18 BP 137 / 83; Pulse 65; Resp 18; Temp 98.7; Pulse Ox 95% ; Weight 142.43 kg; Height 5 ll1 ft. 3 in. ; Pain 8/10; 15:45 BP 128 / 67; Pulse 74; Resp 18; Pulse Ox 95% on R/A; hb 15:54 BP 114 / 62; Pulse 74; Resp 18; Pulse Ox 97% on R/A; ld1 14:18 Body Mass Index 55.62 (142.43 kg, 160.02 cm) ll1 14:18 Pain Scale: Adult ll1 MDM: 14:37 Patient medically screened. ms3 16:09 Data reviewed: vital signs, nurses notes, lab test result(s), and as a result, I will ms3 discharge patient. I considered the following discharge prescriptions or medication management in the emergency department Medications were administered in the Emergency Department. See MAR. Historians other than the Patient: Daughter/Son: . Care significantly affected by the following chronic conditions: Diabetes, Hypertension, Congestive Heart Failure, Chronic Obstructive Pulmonary Disease. Counseling: I had a detailed discussion with the patient and/or guardian regarding the historical points, exam findings, and any diagnostic results supporting the discharge/admit diagnosis, lab results, the need for outpatient follow up, to return to the emergency department if symptoms worsen or persist or if there are any questions or concerns that arise at home. Response to treatment: the patient's symptoms have markedly improved after treatment, and as a result, I will discharge patient. Special discussion: I discussed with the patient/guardian in detail that at this point there is no indication for admission to the hospital. It is understood, however, that if the symptoms persist or worsen the patient needs to return immediately for re-evaluation. ED course: Discussed labs with patient. Patient improved, alert and orient x4, no apparent distress, nontoxic-appearing. Patient given prescription for Compazine 10 mg every 6 hours as patient previously had prescription for. Patient to follow-up with primary care physician in 2 to 3 days. Patient understands agrees with plan. All questions were answered. Return precautions discussed include worsening symptoms, or any other concerns. 08/16 14:22 Order name: CMP; Complete Time: 16:04 ms3 08/16 14:22 Order name: CBC with Diff; Complete Time: 16:04 ms3 Administered Medications: 15:55 Not Given (not availablee): [id number] mg IVP once hb 15:55 Drug: Prochlorperazine PO 10 mg PO once Route: PO; hb Disposition Summary: 08/16/23 16:07 Discharge Ordered Notes: Location: Home ms3 Condition: Stable ms3 Diagnosis - Nausea with vomiting, unspecified ms3 Followup: ms3 - With: Private Physician - When: 2 - 3 days - Reason: Recheck today's complaints Discharge Instructions: - Discharge Summary Sheet ms3 - Nausea and Vomiting, Adult ms3 Forms: - Medication Reconciliation Form ms3 - Thank You Letter ms3 - Antibiotic Education ms3 - Prescription Opioid Use ms3 - Patient Portal Instructions ms3 - Leadership Thank You Letter ms3 Prescriptions: - Compazine 10 mg Oral tablet - take 1 tablet ORAL route every 6 hours As needed; 20 tablet; Refills: 0, ms3 Product Selection Permitted Signatures: Dispatcher [employer] EDAzul Richardson RN RN Idalia Reyes RN RN ll1 Jaspreet Rhoades DO DO ms3
--- NOTE | 2023-08-16 16:07 | ER ---
Nurse's Notes [facility] Name: Maria De Jesus Acosta Age: 58 yrs Sex: Female : 1965 Arrival Date: 08/16/2023 Time: 14:06 Bed 7 Private MD: Diagnosis: Nausea with vomiting, unspecified Presentation: 08/16 14:18 Chief complaint: Patient states: N/V for awhile. Prochlorperazine 10 MG PO Q 6 hours as ll1 needed ( out of this) Zofran isnt helping. Coronavirus screen: Client denies travel out of the [place] in the last 14 days. At this time, the client does not indicate any symptoms associated with coronavirus-19. Ebola Screen: Patient denies travel to an Ebola-affected area in the 21 days before illness onset. Initial Sepsis Screen: Does the patient meet any 2 criteria? No. Patient's initial sepsis screen is negative. Does the patient have a suspected source of infection? No. Patient's initial sepsis screen is negative. Risk Assessment: Do you want to hurt yourself or someone else? Patient reports no desire to harm self or others. Onset of symptoms was August 16, 2023. 14:18 Method Of Arrival: Wheelchair ll1 14:18 Acuity: EMERALD 3 ll1 Historical: - Allergies: 14:18 Doxycycline; ll1 14:18 kiwi; ll1 14:18 metoclopramide HCl; ll1 14:18 orange juice; ll1 14:18 Reglan; ll1 - PMHx: 14:18 Asthma; CHF; COPD; Crohn's; Diabetes - NIDDM; Hypertension; Nasal cancer; ll1 - PSHx: 14:18 Appendectomy; Cholecystectomy; Ligation of fallopian tube; partial hysterectomy; ll1 Shoulder; - Immunization history:: Adult Immunizations up to date. - Social history:: Smoking status: Patient denies any tobacco usage or history of. Screenin:51 [facility] ED Fall Risk Assessment (Adult) Score/Fall Risk Level 0 - 2 = Low Risk hb Oriented to surroundings, Maintained a safe environment, Educated pt \T\ family on fall prevention, incl call for assistance when getting out of bed. Abuse screen: Denies threats or abuse. Denies injuries from another. Nutritional screening: No deficits noted. Tuberculosis screening: No symptoms or risk factors identified. Assessment: 15:15 General: Appears in no apparent distress. Behavior is calm, cooperative. Pain: Denies hb pain. Neuro: Level of Consciousness is awake, alert, obeys commands, Oriented to person, place, time, situation. Cardiovascular: Patient's skin is warm and dry. Respiratory: Respiratory effort is even, unlabored, Respiratory pattern is regular, symmetrical. GI: Reports nausea. : No signs and/or symptoms were reported regarding the genitourinary system. EENT: No signs and/or symptoms were reported regarding the EENT system. Derm: Skin is pink, warm \T\ dry. Musculoskeletal: No signs and/or symptoms reported regarding the musculoskeletal system. 16:02 Reassessment: Patient appears in no apparent distress at this time. Patient and/or hb family updated on plan of care and expected duration. Pain level reassessed. Patient is alert, oriented x 3, equal unlabored respirations, skin warm/dry/pink. Vital Signs: 14:18 BP 137 / 83; Pulse 65; Resp 18; Temp 98.7; Pulse Ox 95% ; Weight 142.43 kg; Height 5 ll1 ft. 3 in. ; Pain 8/10; 15:45 BP 128 / 67; Pulse 74; Resp 18; Pulse Ox 95% on R/A; hb 15:54 BP 114 / 62; Pulse 74; Resp 18; Pulse Ox 97% on R/A; ld1 14:18 Body Mass Index 55.62 (142.43 kg, 160.02 cm) ll1 14:18 Pain Scale: Adult ll1 ED Course: 14:10 Patient arrived in ED. rg4 14:12 Jaspreet Rhoades DO is Attending Physician. ms3 14:17 Arm band placed on. ll1 14:20 Triage completed. ll1 15:27 CBC with Diff Sent. hb 15:27 CMP Sent. hb 15:27 Inserted saline lock: 22 gauge in right antecubital area, using aseptic technique. hb Blood collected. 15:51 Patient has correct armband on for positive identification. Provided Education on: hb tests. 16:19 No provider procedures requiring assistance completed. IV discontinued, intact, ld1 bleeding controlled, No redness/swelling at site. Administered Medications: 15:55 Not Given (not availablee): mg IVP once hb 15:55 Drug: Prochlorperazine PO 10 mg PO once Route: PO; hb Medication: 15:52 VIS not applicable for this client. hb Outcome: 16:07 Discharge ordered by . ms3 16:18 Discharged to home via wheelchair, with family, 16:18 Condition: stable 16:18 Discharge instructions given to patient, family, Instructed on discharge instructions, follow up and referral plans. medication usage, Demonstrated understanding of instructions, follow-up care, medications, Prescriptions given X 1, 16:19 Patient left the ED. hb Signatures: Azul Ta RN RN Blanca Turk4 Idalia Reyes RN RN ll1 Jaspreet Rhoades, DO ms3 Winter Rhoades RN RN ld1 Corrections: (The following items were deleted from the chart) 14:23 14:18 BP 18 / ???; ll1 ll1
[2023-08-16 18:14] VITALS: TEMP 98.7; O2SAT 95
[2023-08-16 18:16] VITALS: BP 128/67
== END 2023-08-16 16:19 | disposition home or self-care (01) ==
LOC: ER 14:06
DX: R11.2 Nausea with vomiting, unspecified (principal); I10 Essential (primary) hypertension; I50.9 Heart failure, unspecified; J44.9 Chronic obstructive pulmonary disease, unspecified; Z85.22 Personal history of malignant neoplasm of nasal cavities, middle ear, and accessory sinuses; Z88.1 Allergy status to other antibiotic agents; Z88.8 Allergy status to other drugs, medicaments and biological substances; Z91.018 Allergy to other foods
CPT/HCPCS: 85025; 36415; 80053; 99284; Q0164

== ENCOUNTER 2023-09-03 14:17 | Emergency (ER) | payer OTHER ==
--- OUTSIDE RECORDS SUMMARY | 2023-09-03 14:29 | XMS REPORT | Clinical Summary ---
:1965 Author Organization [facility] MD Suraj osuna [facility] Center Address [address] [place] [address] Care Team Providers Name Role Phone Bina [...] Kramer MD Unavailable Rosana Harkins MD Unavailable No Andrade MD Unavailable Allergies Active Allergy Reactions Criticality Noted Date Comments Doxycycline GI Intolerance, High 01/14/2015 Other reacti on(s): Nausea And Unknown Vomiting Other reaction( s): n/v, Nausea/Vomiting , Unknown Kiwi (Actinidia Anaphylaxis, Other High 01/25/2022 Chinensis) (See Comments) Pregabalin Other (See 01/12/2023 depression Comments) Metformin GI Intolerance 07/28/2023 Metoclopramide GI Intolerance, High 01/14/2015 Other reac tion(s): Nausea And UNKNOWN, Unknow n - See Vomiting, Other comments (See Comments) Told by anesthesiologis t that she should add to her allergies follo wing a procedure Told by anesthesiologis t that she should add to her allergies follo wing a procedure Told by anesthesiologis t that she should add to her allergies follo wing a procedure Metoclopramide Hcl Other (See 10/16/2022 Comments) [place] Juice Nausea And Low 04/18/2021 Vomiting, GI [...] Active (Easy Comfort Pen insulin 4 times [place]) 31 gauge x a day 03/16" ndleIndications: [...] 3 diabetes mellitus doses, notify without complication microfiche 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 allopurinol (ZYLOPRIM) TAKE 1 TABLET BY 0 09/01/2022 032 Discontinued 300 mg tablet MOUTH TWICE DAILY [...] sodium APPLY TOPICALLY TO 0 10/21/2022 04 / Discontinued (Voltaren) 1 % gel THE AFFECTED [...] op Taking at MORNING AND AT NOON Discharge) AND IN THE EVENING hydrALAZINE TAKE [...] lubiprostone (AMITIZA) TAKE 1 CAPSULE BY 0 12/30 Discontinued 24 MCG capsule MOUTH TWICE [...] ndle 23 rizatriptan 0 08/25/202212/30 Discont inued (MAXALT-METHOD CONSULTANT) 5 mg 02/18 (E rror) disintegrating tablet [...] 04/ 0 Discontinued Needle 32 gauge x 32" under the skin 3 01/18 (Stop Taking at ndleIndications: Type 2 (three) times a day 23 Discharge) diabetes mellitus before meals. without complication Victoza 2-Ze 0.6 Inject 0.3 mL (1.8 9 mL 3 12/15/2022 09 /2 Discontinued mg/0.1 mL (18 mg/3 mL) mg) under the skin 05/20 (Therapy pnij daily. 23 completed) injectionIndications: Type 2 diabetes mellitus without complication gabapentin (NEURONTIN) Take 1 tablet (600 90 tablet 0 12/15/19 23 04/0 Discontinued 600 mg mg) by mouth every 01/18 ( Stop Taking at tabletIndications: 8 (eight) hours. 23 Discharge) Headache, not otherwise specified celecoxib (CeleBREX) Take 1 capsule (200 30 capsule 0 12/16/19 23 03 Discontinued 200 mg mg) by mouth daily. [...] Take 1 tablet (40 30 tablet 0 12/15/19 23 12/02 Discontinued 40 mg EC mg) by mouth every 02/18 ( Stop Taking at tabletIndications: morning before 23 Discharge) Gastroesophageal reflux breakfast for 30 disease days. ondansetron (ZOFRAN) 8 Take 1 tablet (8 30 tablet 3 12/17/2022 04/0 Discontinued mg tabletIndications: mg) by mouth every [...] swallow 5 100 mL 3 01/05/20 23 12/31 Discontinued 20 mg/mL (2%) viscous mL every 6 (six) (Stop Taking at solutionIndications: hours as needed 23 Discharge) Adenocarcinoma of (painful nasopharynx swallowing). hydrALAZINE Take 1 tablet (100 0 12/31 Discontinued (APRESOLINE) 100 mg mg) by mouth 3 (Stop Taking at tablet (three) times a Disc harge) day. metFORMIN (GLUCOPHAGE) Take 1 tablet 0 03/ 2 Discontinued 1000 mg tablet (1,000 mg) by mouth 020 (Stop Taking at 2 (two) times a day 23 Discharge) with meals. spironolactone Take 1 tablet (25 0 03/2 Discontinued (ALDACTONE) 25 mg mg) by mouth daily. (Stop Taking at tablet 23 Discharge) oxyCODONE-acetaminophen Take 1 tablet by 0 3 12/31 Discontinued (Percocet) 5 mg-325 mg mouth every 4 0 0 (Reorder) per tabletIndications: (four) hours as 2 3 Neoplasm related pain needed for moderate (acute) (chronic) pain. oxyCODONE-acetaminophen Take 1 tablet by 60 tablet 0 3 /0 Discontinued (Percocet) 5 mg-325 mg mouth every [...] x FOUR TIMES DAILY (Stop Taking at 03/16 syrgIndications: 23 Discharge) Type 2 diabetes mellitus [...] basilic veins, Thrombosis of left cephalic vein, assistant terminal manager use of anticoagulant metFORMIN (GLUCOPHAGE) TAKE 1 [...] WITH DINNER Active Problems Problem Noted Date Diagnosed Date [facility] use of anticoagulant 03/31/2023 Acute thrombosis of right axillary vein 02/08/2023 Bilateral acute thrombosis of basilic veins 02/08/2023 Thrombosis of left cephalic vein 02/08/2023 Febrile neutropenia 02/06/2023 Shortness of breath 02/06/2023 Central line associated bloodstream infection 02/06/2023 Disorder of fluid AND/OR electrolyte 02/06/2023 Other secondary thrombocytopenia 02/06/2023 Hematochezia 01/27/2023 Abdominal pain, epigastric 01/26/2023 Other severe protein-calorie malnutrition 01/25/2023 Insulin resistance 01/18/2023 History of fall 01/12/2023 Type 2 diabetes mellitus with hyperglycemia 01/12/2023 Malnutrition of moderate degree 01/12/2023 Mucositis due to antineoplastic therapy 01/11/2023 Swallowing painful 01/11/2023 Current use of insulin 12/10/2022 Adverse effect of glucocorticoids and synthetic analogues Headache 12/09/2022 Adenoid cystic carcinoma of nasopharynx, 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 Cancer Staging: Clinical stage from 10/01: Stage WINDY (cT4, cN0, cM0) - Unsigned Essential hypertension 02/15/2020 Gastroesophageal reflux disease 07/28/2018 Other hyperlipidemia 07/28/2018 Severe protein-calorie malnutrition Resolved Problems Problem Noted Date Diagnosed Date Resolved Date Intractable nausea and vomiting 02/05/2023 05/25/2023 Hemoglobin A1c greater than 10 percent 01/12/2023 05/25/2023 indicating poor diabetic control assistant terminal manager current use of systemic steroid 12/10/2022 05/25/2023 Encounters Date Type Department Care Team Description 08/16/2023 Refill Lorena James Adenoid cysti c [facility], CLINICAL CARE LEADER carcinoma of [address] [facility] nasopharyn x, [place] [address] 08/02/2023 [facility] 2 diabetes [address] Calixto APRN mellitus with out Blvd complication (Primary Main Bldg, 6th Dx) [place] [address] 07/28/2023 Telemedicine Endocrine [facility], Type 2 diabetes mellitus wit hout complication (Primary Dx); 9:15 AM Brian Otto MD 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 CDT Blvd Main Bldg, 6th [place] [address] 07/22/2023 Documentation Head and Neck [facility] - Bridget Lund Ophthalmology RN [address] Main Bldg, 9th [place] [address] 07/20/2023 Refill Endocrine Tony Jose, Abnormal cortisol [address] Karolyniece, CLINICAL CARE LEADER Blvd Main Bldg, 6th [place] [address] 07/06/2023 Telephone Endocrine Tony Jose, [address] Seliece, CLINICAL CARE LEADER Blvd Main Bldg, 6th [place] [address] 07/02/2023 Orders Only Head and Neck McAnulty, Adenocarcinoma of Center - Surgical koko Grayaryn x (Primary Oncology CLINICAL CARE LEADER Dx) [address] Main Bldg, 10th Floor, [place] [address] 06/22/2023 Procedure visit Endocrine [facility], Type 2 diabetes 10:00 AM Brian Otto MD mellitus with CDT Blvd hyperglycemia Main Bldg, 6th (Primary Dx) [place] [address] 06/22/2023 Orders Only Endocrine Center Raymond, Type 2 diabetes [address] Otto MD mellitus with Blvd hyperglycemia Main Bldg, 6th (Primary Dx) [place] [address] 06/21/2023 Telephone Endocrine Center Angela Lopes, 9:00 AM Jasmyne[address] Needle, Freya Main Bldg, 6th A, [place] [address] 06/17/2023 Treatment Monico Castellano, Dysarthria (P rimary Dx); 1:00 PM Linsey Larsen MD Oropharyngeal dysphagia CDT Speech Pathology Olivarez, [address] [place] [address], [place] [address] 06/17/2023 Documentation MD Kulwant Olivarez [facility], [facility] Speech Pathology [address] [place] [address] 06/17/2023 Documentation MD Kulwant Olivarez [facility], [facility] Speech Pathology [address] [place] [address] 06/17/2023 Travel 06/16/2023 Telephone Head and Neck [facility] - Surgical Red Costa, Oncology CLINICAL CARE LEADER [address] Main Bldg, 10th Floor, [place] [address] 06/08/2023 Documentation Endocrine Center Jenny, [address] Main Bldg, 6th [place] [address] 06/06/2023 Refill Lorena James Adenoid cysti c [facility] Kayla, CLINICAL CARE LEADER [place] [address] [place] [address] nasopharyn x, [place] [address] 05/26/2023 Telemedicine Endocrine Center Jose, Type 2 diabetes mellitus wit h hyperglycemia (Primary Dx); 3:30 PM [address] Seliece, CLINICAL CARE LEADER Abnormal el isol CDT Blellie Main Bldg, 6th [place] [address] 05/26/2023 Telephone Endocrine Center Jose, BORIS Mixon Main Bldg, 6th [place] [address] 05/26/2023 Telephone Endocrine Center Jenny, [address] Fernandez Main Bldg, 6th [place] [address] 05/25/2023 Orders Only Endocrine Center Jose, Type 2 diabetes mellitus wit h hyperglycemia (Primary Dx); Brian Calixto APRN Abnormal el isol; Blvd Long-term (current) use of i nsulin Main Bldg, 6th [place] [address] 05/24/2023 Telephone Endocrine Center [facility], 11:00 AM MD OTONIEL Foy Pamela Main Bldg, 6th A, [place] [address] 05/21/2023 Documentation Endocrine Center Akil Edwards [address] Main Bldg, 6th [place] [address] 05/21/2023 Documentation Pain Management [facility] H [address]Saurav Parmar Main Bldg, 4th [place] [address] 05/18/2023 Telephone Endocrine Center [facility], 2:00 PM MD OTONIEL Foy Pamela Main Bldg, 6th A, [place] [address] 05/11/2023 Telephone Endocrine Center Jose, BORIS Mixon Main Bldg, 6th [place] [address] 05/02/2023 Telephone Endocrine Center johnathon, MD Agata Foy Main Bldg, 6th [place] [address] 04/22/2023 Follow-Up MD Kulwant Power, Adenoid cystic 3:40 PM Linsey Esposito MD carcinoma of T Thoracic Medicine nasopharynx, NOS [address] [place] [address] 04/22/2023 Follow-Up Winter Shaw Adenoid cystic 2:30 PM Linsey Rubalcava MD carcinoma of T Radiation nasopharynx, NO S Oncology [address] [facility] 1st [place] [address] 04/22/2023 Ancillary Procedure Winter Shaw Adenoid cystic 12:15 PM Linsey Rubalcava MD carcinoma of CDT [address] [place] [place] [address] nasopharyn x, NOS South [address] [place] [address] 04/22/2023 Travel 04/09/2023 Refill Pain Management Thomas, Chronic pain Center JCARLOS Tracey [address] [facility] Main Bldg, 4th [place] [address] 04/08/2023 Refill Pain Management Miguel Gordon in Center MD Rebecca [address] [facility] Main dg, 4th [place] [address] 03/31/2023 Office Visit Internal Medicine Rosana Harkins MD assistant terminal manager use of anticoagulant (Primary Dx); 10:30 AM Center - Adenoid cystic carcinoma of nasopharynx, NOS; CDT Hematology Deep venous thrombosis <Unsp ecified side>; [address] Acute thrombos is of right axillary vein; Blvd Bilateral acute thrombosis o f basilic veins; [facility], 6th Thrombosis of left cephalic [place] [address] 03/31/2023 Travel 03/26/2023 Telephone MD Blum in Viry Gaitan [place] - Geremias Singer RN Medicine [address] [facility] [address] [place] [address] 03/23/2023 Telephone Lindy [place] - BALJINDER Sotelo Radiation Oncology [address] [address] 03/23/2023 Orders Only Lindy Flynn [place] - BALJINDER Sotelo Radiation Oncology [address] [address] 03/19/2023 Telemedicine Endocrine Center Angela Lopes, Type 2 diabetes 1:30 PM [address] CLINICAL CARE LEADER mellitus witho ut CDT Blvd complication (Primary Main Bldg, 6th Dx) [place] [address] 03/18/2023 Tele[facility] Vaibhav [address] [place] [address] 03/16/2023 Orders Only Lorena Jamesid cysti c [facility], CLINICAL CARE LEADER carcinoma of [address] [place] [place] [address] nasopharyn x, NOS South (Primary Dx) [place] [address] 03/12/2023 Nutrition Clinical Kenya Agarwal 11:00 AM Mendez Smith MD CDT For your Lian Jaramillo, ADAM appointment location directions please call: 03/11/2023 Infusion Lorena James Adenoid cysti c 1:30 PM [facility], CLINICAL CARE LEADER carcinoma of CDT Infusion nasopharynx, NOS [address] [facility] (Primary D x) [facility] 4th [place] [address] 03/11/2023 Follow-Up Lorena Jamesid cysti c 11:20 AM [facility], CLINICAL CARE LEADER carcinoma of CDT [address] [facility] nasopharyn x, NOS South (Primary Dx) [place] [address] 03/11/2023 Travel 03/09/2023 Telephone Lorena James [facility] Kayla, CLINICAL CARE LEADER [address] [place] [address] 03/04/2023 Nutrition Clinical Kenya Agarwal 10:00 AM Mendez Smith MD CDT For your Lian Jaramillo Nutrition Sourav, RD appointment location directions please call: 03/04/2023 Orders Only MD Kulwant Hdez, [facility] Kayla, CLINICAL CARE LEADER [address] [place] [address] 03/04/2023 Telephone MD Kulwant Kwon [place] - Tita Mayorga, Thoracic Medicine RN [address] [place] [address] 03/04/2023 Orders Only Pain Management Miguel Gordon Cancer ass ociated Kandice Fernandez MD pain (Primary Dx) [address] [facility] Main dg, 4th [place] [address] 03/03/2023 Follow-Up MD Kulwant Power, Adenoid cystic carcinoma of nasopharynx, NOS; 11:40 AM Linsey Esposito MD Deep venous th rombosis <Unspecified side> CDT Thoracic Medicine [address] [place] [address] 03/03/2023 Refill Pain Management [facility] pain [facility], CLINICAL CARE LEADER [address] [facility] Main Bldg, 4th [place] [address] 03/03/2023 Travel 03/02/2023 Refill Pain Management [facility] pain [facility], CLINICAL CARE LEADER [address] [facility] Main dg, 4th [place] [address] 02/26/2023 Telemedicine MD Blum in Miguel Gordon Chronic mehnaz n (Primary 8:30 AM [place] - Geremias Fernandez MD Dx) CDT Medicine [address] [place] [address] 02/25/2023 Nutrition Clinical Kenya Agarwal 10:00 AM Mendez Smith MD CDT For your Lian Jaramillo, RD appointment location directions please call: 02/19/2023 Telephone Anthony Saldaña RN Radiation Oncology [address] [address] 02/18/2023 Nutrition Clinical Kenya Agarwal 10:00 AM Mendez Smith MD CDT For your Lian Jaramillo Mendez Benjamin, RD appointment location directions please call: 02/12/2023 Clinical Support Winter Shaw 4:15 PM Linsey Rubalcava MD CDT Radiation Oncology [address] [place] [address] 02/12/2023 Hospital Encounter Radiation Kenya Agarwal Discharge 7:00 AM Treatment Kandice Smith MD Disposition: Home CDT - [address] 02/12/2023 Blvd 11:59 PM Main Bldg [place] [address] 02/12/2023 Documentation Radiation [facility] MD Gini [address] [place] [address] 02/12/2023 Orders Only Winter Shaw Adenocarcinoma of nasopharynx (Primary Dx); Linsey Rubalcava MD Adenoid cystic carcinoma of nasopharynx, NOS Radiation Oncology [address] [place] [address] 02/12/2023 Orders Only Pain Management Bruce, Neoplasm rel ated pain (acute) (chronic) (Primary Dx); Tony MD Elvis Chronic pain [address] Main Bldg, 4th [place] [address] 02/10/2023 Orders Only Head and Neck Charla Solis, Oropharyngea l Center - Speech CCC-SERVICE ORDER EXPEDITER dysphagia (P rimary Pathology Dx) [address] Main Bldg, 10th [place] [address] 02/08/2023 Hospital Encounter Kenya King Discharge 6:00 AM Treatment Kandice Smith MD Disposition: Home CDT - [address] 02/08/2023 Blvd 11:59 PM Main Bldg CDT near Elevator G [place], [place] [address] 02/06/2023 Travel 02/05/2023 Hospital Encounter MAIN 21SW Deneen Guevara, Intractable nausea and vomit ing (Primary Dx); 4:49 PM [address] GRIFFIN Type 2 diabetes mellitus with hyperglyce moncho; CDT - Tracie Rashid, Swallowing painful; 02/16/2023 [place] [address] MD Felisa Dyspnea; 4:40 PM [phone] Brooks, Adenoid cystic carcinoma of nasopharynx, NOS; CDT MD Romana Chronic pain; Amanda Proctor, Deep venous th rombosis <Unspecified side>; Type 2 diabetes mellitus without complic ation; Estella, Son Shortness of br flor Cisneros MD Discharge Disposition: Home Derrick Gill MD Mohammed, MD Phyllis See Michelle, MD 02/05/2023 Telephone MD Kulwant Power, ... (The patien t's Linsey Esposito MD son called [facility] Thoracic Medicine is not [address] [place] [place] [address] feeling we ll she South feels cold and [place], [place] hyperventila ting [address] little bit, but the [phone] son said she do ing okay but wants to know should she come see or just take her Emerge ncy Room/) 02/04/2023 Follow-Up MD Kulwant Power, Adenoid cystic 10:40 AM Linsey Esposito MD carcinoma of CDT Thoracic Medicine nasopharynx, NOS [address] [place] [address] 02/04/2023 Clinical Support Winter Shaw yanely of nasopharynx (Primary Dx); 9:45 AM Linsey Rubalcava MD Adenoid cystic carcinoma of nasopharynx, NOS CDT Radiation Oncology [address] [facility] 1st [place] [address] 02/04/2023 Travel 02/03/2023 Infusion MD Blum Kenny Power, Adenoid cystic 11:00 AM Linsey Esposito MD carcinoma of CDT Infusion nasopharynx, NOS [address] [facility] (Primary D x) [place] [address] 02/03/2023 Orders Only [facility] CLIN[facility] CARE LE[facility] [address] [place] [address] 02/03/2023 Travel 02/02/2023 Travel 01/31/2023 Refill Internal Medicine Rohan, Type [address] [facility] Glenda Peñaloza, mellitus with [address] CLINICAL CARE LEADER hyperglycemia Blvd (Primary Dx) Main Bldg, 9th Floor Elevator A [place], [place] [id number] 01/28/2023 Telephone Felisa Page, RN Radiation Oncology [address] [address] 01/28/2023 Orders Only Lorena James [facility], CLINICAL CARE LEADER [address] [place] [address] 01/26/2023 Hospital Encounter MAIN P09B Wattana, Chronic pain (Primary Dx); 4:06 PM [address] Roberto MD Swallowing painful; CDT - Tracie Patel, Abdominal pain, epigastric; 02/01/2023 [place] [address] MD Jad Rectal hemorrhage; 6:28 PM [phone] Amanda Proctor, Mucositis due to antineoplastic therapy; CDT Adenoid cystic carcinoma of nasopharynx, NOS; Hancock, Hypomagnesemia; Rudy, Severe protein -calorie malnutrition; Encounter for adjustment and management of vascular access device; Dillon Agrawal, Type 2 diabete s mellitus with hyperglycemia; Type 2 diabetes mellitus without complic ation; Kt Hematochezia Saurabh, Discharge Dispo sition: Home with Home-Health or Physical Therapy MD Rashaun 01/26/2023 Travel 01/26/2023 Telephone Felisa Page RN Radiation Oncology [address] [place] [address] 01/26/2023 Telephone Felisa Page RN Radiation Oncology [address] [place] [address] 01/25/2023 Nutrition Clinical Kenya Agarwal 11:30 AM Mendez Smith MD CDT For your Lian Jaramillo, RD appointment location directions please call: 01/25/2023 Hospital Encounter Radiation Kenya Agarwal Discharge 6:00 AM Treatment Kandice Smith MD Disposition: Home CDT - [address] 01/25/2023 Blvd 11:59 PM Main Bldg [place] [address] 01/25/2023 Telephone Felisa Page RN Radiation Oncology [address] [place] [address] 01/22/2023 Nutrition Clinical Kenya Agarwal 10:30 AM Mendez Smith MD CDT For your Lian Jaramillo, RD appointment location directions please call: 01/22/2023 Travel 01/21/2023 Infusion Lorena James Adenoid cysti c 8:45 AM [place] Suzie Garza APRN carcinoma of CDT Infusion nasopharynx, NOS [address] [facility] (Primary D x) [address] [address] 01/21/2023 Follow-Up MD Kulwant Power, Adenoid cystic 8:00 AM VanlueKaryn Esposito MD carcinoma of CDT Thoracic Medicine nasopharynx, NOS [address] [facility] (Primary D x) [place] [address] 01/21/2023 Travel 01/20/2023 Consult MD Kulwant Kramer, assistant terminal manager curr ent use of opiate analgesic (Primary Dx); 11:20 AM [place] - Dhanalakshmi, Adenocarcinom a of nasopharynx; CDT Pain Medicine Ulcerative oral mucositis du e to antineoplastic therapy; [address] [facility] Neoplasm r elated pain (acute) (chronic) [place] [address] 01/20/2023 Documentation Pain Management Randall Ferrer [facility] [address] [facility] Main Bldg, 4th [place] [address] 01/20/2023 Travel 01/19/2023 Clinical Support Winter Shaw 3:30 PM Linsey Rubalcava MD CDT Radiation Oncology [address] [facility] 1st [place] [address] 01/19/2023 Travel 01/14/2023 Orders Only Head and Neck Gorman, Dysphagia, Center - Speech Mukund oropharyngea l phase Pathology [place], (Primary Dx) [address] [facility] Main Bldg, 10th [place] [address] 01/12/2023 Refill Internal Medicine Karen Ordaz, Hyperten momo Center [address] [facility] Main Bldg, 9th [place] [address] 01/11/2023 Hospital Encounter MAIN 22SW Regulo, Headache, not otherwise spec ified (Primary Dx); 7:31 PM [address] Ardon MD Dehydration; CDT - Tracie Walsh, Mucositis; 01/18/2023 [place] [address] MD Roberto Carlos Type 2 diabetes mellitus without complic ation; 7:34 PM [phone] Chung Soria Current use of insulin; CDT MD Radha Adenoid cystic carcinoma of nasopharynx, NOS; Lee, Cancer associat ed pain; [place]a, DO Malnutrition of moderate degree; Dillon Agrawal, Hemoglobin A1c greater than 10 percent indicating poor diabetic control; Type 2 diabetes mellitus with hyperglycemia; History of fall ; Swallowing pain ful; 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; Adverse effect of glucocorticoids and synthetic analogues, subsequent encounter; assistant terminal manager curre nt use of systemic steroid; Hyperlipidemia, not otherwise specified; Gastroesophagea l reflux disease; Essential hyper tension; Mucositis (ulce rative) due to antineoplastic therapy; Neoplasm relate d pain (acute) (chronic); Hypertension; 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; Insulin resista nce Discharge Dispo sition: Home with Home-Health or Physical Therapy 01/11/2023 Travel 01/11/2023 Telephone Felisa Page Vanlue Suzie Costa RN Radiation Oncology [address] [place] [address] 01/08/2023 Nutrition Clinical Kenya Agarwal 10:00 AM Mendez Smith MD CST For your Lian Jaramillo, ADAM appointment location directions please call: 01/08/2023 Travel 01/07/2023 Infusion Lorena James cysti c 9:00 AM [facility], CLINICAL CARE LEADER carcinoma of ACTIVITIES DIRECTOR SCOUTING Infusion nasopharynx, NOS [address] [place] [place] [address] (Primary D x) [place] [address] 01/07/2023 Follow-Up Lorena James cysti c 8:40 AM [facility], CLINICAL CARE LEADER carcinoma of ACTIVITIES DIRECTOR SCOUTING [address] [place] [address] nasopharyn x, NOS [facility] (Primary Dx) [place] [address] 01/07/2023 Travel 01/06/2023 Infusion Lorena James cysti c 11:00 AM [facility], CLINICAL CARE LEADER carcinoma of ACTIVITIES DIRECTOR SCOUTING Infusion nasopharynx, NOS [address] [place] [place] [address] (Primary D x) [address] [address] 01/06/2023 Travel 01/05/2023 Travel 01/04/2023 Clinical Support Winter Shaw yanely of 2:00 PM MD adan Elenaopharynx (P rimary ACTIVITIES DIRECTOR SCOUTING Radiation Dx) Oncology [address] [place] [address] 01/04/2023 Infusion Lorena James cystcarlos c 10:45 AM [facility], CLINICAL CARE LEADER carcinoma of ACTIVITIES DIRECTOR SCOUTING Infusion nasopharynx, NOS [address] [place] [place] [address] (Primary D x) [address] [address] 01/04/2023 Travel 01/01/2023 Infusion Lorena James Adenoid cysti c 9:00 AM [facility], CLINICAL CARE LEADER carcinoma of ACTIVITIES DIRECTOR SCOUTING Infusion nasopharynx, NOS [address] [place] [place] [address] (Primary D x) [address] [address] 01/01/2023 Follow-Up MD Kulwant Power, Adenoid cystic carcinoma of nasopharynx, NOS (Primary Dx); 8:40 AM Vanlue Suzie Esposito MD Neoplasm relat ed pain (acute) (chronic) ACTIVITIES DIRECTOR SCOUTING Thoracic Medicine [address] [place] [address] 01/01/2023 Refill MD Kulwant Guardado, Neoplasm relate d pain Vanlue - Brittni Benjamin RN (acute) (chron ic) Pain Medicine [address] [place] [address] 01/01/2023 Travel 12/31/2022 Telephone MD Kulwant Kwon, Pain med reques t and Vanlue - Tita Mayorga, nausea - misse d Thoracic Medicine RN treatment [address] [place] [address] 12/31/2022 Orders Only Lorena James Adenoid cysti c [facility], CLINICAL CARE LEADER carcinoma of [address] [place] [place] [address] nasopharyn x, NOS [facility] (Primary Dx) [place] [address] 12/30/2022 Hospital Encounter Pain Management Miguel Gordon er associated pain (Primary Dx); 9:33 AM Kandice Fernandez MD Headache, not otherwise spec ified ACTIVITIES DIRECTOR SCOUTING - [address] Discharge Disp osition: Home 12/30/2022 Blvd 11:59 PM Main Bldg, 4th ACTIVITIES DIRECTOR SC[place] [address] 12/30/2022 Travel 12/29/2022 Hospital Encounter Main Flex Center Alcides, Adenocarcinoma of nasopharyn x; 8:00 AM [address] Palacios MD Sixth (abducen t) nerve palsy, left eye; ACTIVITIES DIRECTOR SCOUTING - Blvd Diplopia; 12/29/2022 Main Bldg, 7th Corneal anest hesia <Left side>; 11:59 PM Floor Disorder of trigeminal nerve , not otherwise specified ACTIVITIES DIRECTOR SCOUTING Elevator C Discharge Disposition: [place] [address] 12/29/2022 Travel 12/28/2022 Clinical Support Winter Shaw 2:00 PM Linsey Rubalcava MD ACTIVITIES DIRECTOR SCOUTING Radiation Oncology [address] [place] [address] 12/28/2022 Nutrition Clinical Kenya Agarwal 10:00 AM Mendez Smith MD ACTIVITIES DIRECTOR SCOUTING For your Lian Jaramillo Nutrition A, RD appointment location directions please call: 12/28/2022 Travel 12/25/2022 Travel 12/24/2022 Infusion Lorena James Adenoid cysti c 8:45 AM Linsey Garza, CLINICAL CARE LEADER carcinoma of ACTIVITIES DIRECTOR SCOUTING Infusion nasopharynx, NOS 0 [facility] (Primary D x) [address] [address] 12/24/2022 Follow-Up MD Kulwant Power, Adenoid cystic 8:20 AM Linsey Esposito MD carcinoma of ACTIVITIES DIRECTOR SCOUTING Thoracic Medicine nasopharynx, NOS 0 [place] [address] 12/24/2022 Telephone Felisa Page RN Radiation Oncology [address] [place] [address] 12/24/2022 Telephone Kenya Ivory Appointment Linsey Smith MD Head & Neck Surgery [address] [place] [address] 12/24/2022 Telephone Linsey Anand - Tita Mayorga Thoracic Medicine RN [address] [place] [address] 12/24/2022 Telephone MD Kulwant Kwon, Vanlue Suzie Mayorga, Thoracic Medicine RN [address] [place] [address] 12/24/2022 Telephone MD Kulwant Power, Medication Prob augusta Vanlue Suzie Esposito MD Infusion [address] [place] [address] 12/24/2022 Travel 12/24/2022 Orders Only Linsey Petty MD Thoracic Medicine [address] [place] [address] 12/23/2022 Clinical Support [facility] Winter Suspected COVID-19 (Primary Dx); 10:15 AM Center - Isabel Rubalcava MD Adenocarcinoma of nasopharynx ACTIVITIES DIRECTOR SCOUTING [facility], [address] HOLLY [place] [facility], 8th Floor Elevator [place] [address] 12/23/2022 Hospital Encounter Oral Oncology [place], Adenoid cystic carcinoma of nasopharynx, 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 Brian Bingham DDS Discharge Disp osition: Home ACTIVITIES DIRECTOR SCOUTING - Blvd 12/23/2022 Main Bldg, 11:59 PM Floor ACTIVITIES [place] [address] 12/23/2022 Documentation Radiation [facility] MD Gini [address] [place] [address] [place] [address] 12/23/2022 Telephone MD Kulwant Power, Results (Test n ote ) Linsey Esposito MD Thoracic Medicine [address] [place] [address] 12/23/2022 Telephone MD Kulwant Kwon, Results (Test Vanlue Suzie Mayorga, note-per Pippa pierce Radiation RN request) Oncology [address] [place] [address] 1st [place] [address] 12/23/2022 Travel 12/23/2022 Orders Only Lorena James cysti c [facility], CLINICAL CARE LEADER carcinoma of [address] [facility] nasopharyn x, NOS South (Primary Dx) [place] [address] 12/18/2022 Orders Only [place] BALJINDER Todd Radiation Oncology [address] [address] 12/18/2022 Orders Only Lindy Flynn Adenocarcinom a of Vanlue BALJINDER Todd nasopharynx Radiation Oncology [address] [address] 12/17/2022 Clinical Support Kenya Ivory 8:00 AM Linsey Smith MD ACTIVITIES DIRECTOR SCOUTING Radiation [place], Oncology Maria Luz Lund RN [address] [address] 12/17/2022 Documentation Radiation [place] [facility] Treatment Tony MD Gini [address] Main [place] [address] 12/17/2022 Documentation Radiation [place] [facility] Treatment Tony MD Gini [address] Main [place] [address] 12/17/2022 Documentation Radiation [place] [facility] Treatment Tony MD Gini [address] Main [place] [address] 12/17/2022 Orders Only Lorena James Adenoid cysti c [facility], CLINICAL CARE LEADER carcinoma of [address] [facility] nasopharyn x, NOS South (Primary Dx) [place] [address] 12/17/2022 Travel 12/17/2022 Orders Only Winter Shaw Vanluemurphy Rubalcava MD Radiation Oncology [address] [address] 12/16/2022 Orders Only Winter Shaw Adenocarcinoma of Vanluemurphy Rubalcava MD nasopharynx (P rimary Radiation Dx) Oncology [address] [address] 12/16/2022 Telephone Felisa Page Vanlue - Julissa, RN Radiation Oncology [address] [address] 12/16/2022 Telephone Endocrine Center Rosmery Dickinson, [address] Main Bldg, 6th [place] [address] 12/15/2022 Hospital Encounter Oral Oncology AgarwalKenya Encounter for observation fo r other suspected disease ruled out 8:42 AM Brian Smith MD Discharge Disp osition: Home ACTIVITIES DIRECTOR SCOUTING - Blvd 12/15/2022 Main Bldg, 11:59 PM Floor ACTIVITIES DIRECT[place] [address] 12/15/2022 Refill Lindy Flynn a [facility] - BALJINDER Sotelo nasopharynx Radiation Oncology [address] [address] 12/15/2022 Orders Only Pain Management Williams, Neoplasm re lated pain Center [facility], (acute) (chronic) 151Saurav Martinez MD (Primary Dx) [facility] Main Bldg, 4th [place] [address] 12/15/2022 Orders Only Pain Management [place], [facility] [address]av Ayoub Main Bldg, 4th [place] [address] 12/15/2022 Orders Only [facility] - Maya, OD nerve palsy, le ft eye Ophthalmology (Primary Dx) [address] Main Bldg, 9th Floor Elevator A [place], [place] [address] 12/15/2022 Ophth Exam Head and Neck [facility], Tony - ERNESTO Trejo Ophthalmology [address] Main Bldg, 9th Floor Elevator A [place], [place] [phone] 12/14/2022 Orders Only Oral Oncology Martínez, Encounter for [address] Hdz MD observation fo r other Blvd suspected disease Main Bldg, 9th ruled out (Pr imary Floor Dx) [place] [address] 12/11/2022 Telephone Oral Oncology Triston Gomez [address] Main Bldg, 9th [place] [address] 12/10/2022 Travel 12/10/2022 Orders Only Oral Oncology Martínez, Encounter for [address] Hdz MD observation fo r other Blvd suspected disease Main Bldg, 9th ruled out (Pr imary Floor Dx) [place] [address] 12/09/2022 Hospital Encounter MAIN P04A Maicol Mer Type 2 diabetes mellitus wit hout complication (Primary Dx); 9:01 PM [address] Peñaloza MD Adenoid cystic carcinoma of nasopharynx, NOS; ACTIVITIES DIRECTOR SCOUTING - Snyder Nico, Headache; 12/15/2022 [place] [address] MD Roberto Carlos Blurring of visual image; 7:30 PM [phone] Regulo, Adenocarcinoma of nasopharynx; ACTIVITIES DIRECTOR SCOUTING MD Reva Encounter for observation for other susp ected disease ruled out; Abiodun Adorno, Headache, not otherwise specified; Diplopia; Karissa, Hypertension; Rudy, Gastroesophage al reflux disease MD Discharge Disposition: Home Travis Lopez MD Brito-Dellan, Norman, MD Leung, Cerena, MD 12/08/2022 Telephone Lindy Flynn Vanl[place] BALJINDER Todd Radiation Oncology 22[address] [facility] 1st [place] [address] 12/08/2022 Orders Only Lorena Jamesid cysti c Vanlue Kayla, BORIS carcinoma of 2280 [facility] nasopharyn x, NOS South (Primary Dx) [place] [address] 12/05/2022 Telephone Winter Shaw MD Radiation Oncology [address] [address] 12/05/2022 Orders Only Winter Shaw MD nasopharynx (P rimary Radiation Dx) Oncology [address] [address] 12/04/2022 Hospital Encounter TAO Benitez, Discharg e 10:55 AM MEGAN Castro Disposition: Ho il ACTIVITIES DIRECTOR SCOUTING Suzie Choe MD 12/04/2022 Lorena Hdez 11:59 PM BORIS Garza CST 12/04/2022 Telephone Linsey Turner, Head & Neck CLINICAL CARE LEADER Surgery 0 [place] [address] 12/04/2022 Multidisciplinary Visit Linsey Turner, Head & Neck CLINICAL CARE LEADER Surgery 0 [place] [address] 12/04/2022 Telephone Linsey Miller, RN Radiation Oncology [address] [address] 12/02/2022 Orders Only Lindy Flynn Adenocarcinom a of BALJINDER Garza nasopharynx (P rimary Radiation Dx) Oncology [address] [address] 12/02/2022 Orders Only Winter Shaw of Linsey Rubalcava MD nasopharynx (P rimary Radiation Dx) Oncology [address] [address] 11/30/2022 Ancillary Procedure [facility] MRI Lorena Hdez Adenocarcinoma of 8:15 AM [address] Garza APRN nasopharynx ACTIVITIES DIRECTOR SCOUTING [facility], 4th [place] [address] 11/30/2022 Travel 11/27/2022 Ancillary Procedure Lindy Flynn Adenoc arcinoma of nasopharynx; 12:00 PM Vanlue BALJINDER Sotelo Malignant neoplasm of overla pping sites of nasopharynx ACTIVITIES DIRECTOR SCOUTING 2279 [facility] 2nd [place] [address] 11/27/2022 Travel 11/26/2022 Consult MD Kulwant Power, Adenocarcinoma of 11:00 AM Linsey Esposito MD nasopharynx ACTIVITIES DIRECTOR SCOUTING Thoracic Medicine [address] [place] [address] 11/26/2022 Consult Winter Shaw Adenocarcinoma of nasopharynx; 10:00 AM Vanlue - MD Gini Malignant neop lasm of overlapping sites of nasopharynx ACTIVITIES DIRECTOR SCOUTING Radiation Oncology [address] [address] 11/26/2022 Travel 11/24/2022 Lab Requisition [facility] David Nunez e LAB GMD Disposition: Home Alexa Alvarez MD 11/23/2022 Telephone MD Kulwant Bardales [facility] T, RN [address] [place] [address] 11/22/2022 Orders Only Oral Oncology Berkley Aguayo, Encounter for [address] GRIFFIN observation fo r other Blvd suspected condition Main Bldg, 9th ruled out (Pr imary Floor Dx) [place] [address] 11/20/2022 Telephone Elana Dupree Vanlue RN 0 [place] [address] 11/17/2022 Office Visit Kenya Ivory Adenocarcinoma of 9:15 AM Linsey Smith MD nasopharynx ACTIVITIES DIRECTOR SCOUTING Head & Neck Surgery [address] [place] [address] 11/17/2022 NPR MDA PATIENT Kenya Agarwal 8:45 AM TAMEAR Smith MD ACTIVITIES DIRECTOR SCOUTING 11/17/2022 Travel 11/16/2022 Orders Only MD Kulwant Berman, Adenocarcinoma of Vanlue - Red M, nasopharynx (P rimary Head & Neck CLINICAL CARE LEADER Dx) Surgery [address] [place] [address] 11/12/2022 Orders Only [facility] BAL[facility]ER [facility] Head & Neck Surgery [address] [place] [address] 11/12/2022 Orders Only Head and Neck McAnulty, Adenocarcinoma of nasopharynx (Primary Dx); Center - Surgical Red M, 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 Oncology CLINICAL CARE LEADER 1515 [facility] Main Bldg, 10th Floor, [place] [address] after 09/03/2022 Surgical History Surgery Date Site/Laterality Comments APPENDECTOMY [id number] COLONOSCOPY [id number] CHOLECYSTECTOMY [id number] KNEE ARTHROPLASTY Right SHOULDER SURGERY 050@2010 Left UPPER GASTROINTESTINAL ENDOSCOPY [id number] SECTION, CLASSIC 11/01/1984 - 10/31/1985 PARTIAL HYSTERECTOMY 03/01/2012 - 03/31/2012 MYRINGOTOMY WITH ASPIRATION AND 11/01/2019 - 10/31/2020 INSERTION PE TUBES SLEEVE GASTROPLASTY N/A Medical History Medical History Date Comments Hypertension [id number] Hyperlipidemia [id number] Allergic rhinitis [id number] Fatty liver 15945292 Gastric reflux 28578913 Gastric ulcer 27784512 Crohn's disease 20267815 Gout 44354796 Type 2 diabetes mellitus with 5602186 hyperglycemia Anxiety 53279218 Chronic obstructive pulmonary disease On home supplemental [...] = 0.6 oz pure alcoho l) Sex and Gender Information Value Date Recorded Sex Assigned at Female 11/12/2022 2:07 PM ACTIVITIES DIRECTOR SCOUTING Gender Identity Female 11/12/2022 2:[address] Sexual Orientation Not on file Job Start Date Occupation Industry Not on [...] PM CDT Plan of Treatment Date Type Department Care Team Description 10/27/2023 9:00 Lab [facility] Kylie Andrade i, AM ACTIVITIES DIRECTOR SCOUTING - Lab [facility] [address] 1[address] [address] [phone] 11/03/2023 1:30 Telemedicine Endocrine Center Marily Garcia, [facility] CARE LEAD[facility] Main [facility], 6th Floor [address] [place] [address] [place] [address] [phone] Health Maintenance Due Date Last Done Comments COVID-19 Vaccination (07/02/2023 07/11/2021, , season) 12/03/2020 Medical Devices Implanted Type Area Trench Shovel Operator Device Shelf Model / Identifier Expiration Serial / Date Lot Gastric Sleeve Sleeve Midline: Stomach Procedures Procedure Name Priority Date/Time Associated Comments Diagnosis ADRENOCORTICOTROPIC Routine 06/17/2023 Abnormal cortisol Res ults for HORMONE 12:29 PM CDT this procedure are in the results section. CORTISOL, TOTAL Routine 06/17/2023 Abnormal cortisol Results for 12:29 PM CDT this procedure are in the results section. MRI ORBITS W WO CONTRAST Routine 04/22/2023 Adenoid cystic R esults for 2:58 PM CDT carcinoma of this procedure nasopharynx, NOS are in the results section. DIFFERENTIAL Routine 04/22/2023 Adenoid cystic Results for 12:28 PM CDT carcinoma of this procedure nasopharynx, NOS are in the results section. .CBC Routine 04/22/2023 Adenoid cystic Results for 12:28 [...] nasopharynx, NOS are in the results section. CREATININE Routine 04/22/2023 Adenoid cystic 12:28 PM CDT carcinoma of nasopharynx, NOS ELECTROLYTE PANEL Routine 04/22/2023 Adenoid cystic Results for 12:28 PM CDT carcinoma of this procedure nasopharynx, NOS are in the results section. COMPLETE BLOOD COUNT W/ Routine 04/22/2023 Adenoid cystic DIFFERENTIAL 12:28 PM CDT carcinoma of nasopharynx, NOS CORTISOL, TOTAL Routine 04/22/2023 Adenoid cystic Results fo r [...] nasopharynx, NOS are in the results section. TRIIODOTHYRONINE Routine 04/22/2023 Adenoid cystic Results f or 12:28 PM CDT carcinoma of this procedure nasopharynx, NOS are in the results section. FREE THYROXINE Routine 04/22/2023 Adenoid cystic Results for 12:28 PM CDT carcinoma of this procedure nasopharynx, NOS are in the results section. INSULIN-LIKE GROWTH FACTOR Routine 04/22/2023 Adenoid cystic Results [...] are in the results section. CALCIUM LEVEL Routine 03/11/2023 Adenoid cystic Results for [...] nasopharynx, NOS are in the results section. DIFFERENTIAL Routine 03/11/2023 Adenoid cystic Results for 11:15 AM CDT carcinoma of this procedure nasopharynx, NOS are in the results section. .CBC Routine 03/11/2023 Adenoid cystic Results for 11:15 [...] are in the results section. CALCIUM LEVEL Routine 03/03/2023 Adenoid cystic Results for [...] nasopharynx, NOS are in the results section. DIFFERENTIAL Routine 03/03/2023 Adenoid cystic Results for 1:03 PM CDT carcinoma of this procedure nasopharynx, NOS are in the results section. .CBC Routine 03/03/2023 Adenoid cystic Results for 1:03 [...] this procedure are in the results section. DIFFERENTIAL AM 02/16/2023 Results for 6:15 AM CDT this procedure are in the results section. .CBC AM 02/16/2023 Results for 6:15 AM CDT [...] are in the results section. CALCIUM LEVEL AM 02/16/2023 Results for 6:15 AM [...] this procedure are in the results section. DIFFERENTIAL AM 02/15/2023 Results for 6:24 AM CDT this procedure are in the results section. .CBC AM 02/15/2023 Results for 6:24 AM CDT [...] are in the results section. CALCIUM LEVEL AM 02/15/2023 Results for 6:24 AM [...] this procedure are in the results section. DIFFERENTIAL AM 02/14/2023 Results for 6:24 AM CDT this procedure are in the results section. .CBC AM 02/14/2023 Results for 6:24 AM CDT [...] are in the results section. CALCIUM LEVEL AM 02/14/2023 Results for 6:24 AM [...] this procedure are in the results section. DIFFERENTIAL AM 02/13/2023 Results for 6:42 AM CDT this procedure are in the results section. .CBC AM 02/13/2023 Results for 6:42 AM CDT [...] are in the results section. CALCIUM LEVEL AM 02/13/2023 Results for 6:42 AM [...] this procedure are in the results section. DIFFERENTIAL AM 02/12/2023 Results for 5:34 AM CDT this procedure are in the results section. .CBC AM 02/12/2023 Results for 5:34 AM CDT [...] are in the results section. CALCIUM LEVEL AM 02/12/2023 Results for 5:34 AM [...] this procedure are in the results section. DIFFERENTIAL AM 02/11/2023 Results for 5:42 AM CDT this procedure are in the results section. .CBC AM 02/11/2023 Results for 5:42 AM CDT [...] are in the results section. CALCIUM LEVEL AM 02/11/2023 Results for 5:42 AM [...] this procedure are in the results section. DIFFERENTIAL AM 02/10/2023 Results for 5:43 AM CDT this procedure are in the results section. .CBC AM 02/10/2023 Results for 5:43 AM CDT [...] are in the results section. CALCIUM LEVEL AM 02/10/2023 Results for 5:43 AM [...] this procedure are in the results section. DIFFERENTIAL AM 02/09/2023 Results for 5:37 AM CDT this procedure are in the results section. .CBC AM 02/09/2023 Results for 5:37 AM CDT [...] are in the results section. CALCIUM LEVEL AM 02/09/2023 Results for 5:37 AM [...] this procedure are in the results section. DIFFERENTIAL AM 02/08/2023 Results for 6:14 AM CDT this procedure are in the results section. .CBC AM 02/08/2023 Results for 6:14 AM CDT [...] are in the results section. CALCIUM LEVEL AM 02/08/2023 Results for 6:14 AM [...] this procedure are in the results section. DIFFERENTIAL AM 02/07/2023 Results for 6:52 AM CDT this procedure are in the results section. .CBC AM 02/07/2023 Results for 6:52 AM CDT [...] are in the results section. CALCIUM LEVEL AM 02/07/2023 Results for 6:52 AM [...] procedure are in the results section. FERRITIN Routine 02/07/2023 Results for 6:52 AM CDT this procedure are in the results section. HEPATITIS C VIRUS ANTIBODY Routine 02/07/2023 R esults for 6:52 AM CDT this procedure are in the results section. HEPATITIS B CORE ANTIBODY Routine 02/07/2023 Re sults for 6:52 AM CDT this procedure are in the results section. HEPATITIS B SURFACE Routine 02/07/2023 Results for ANTIGEN 6:52 AM CDT this procedure are in the results section. HIV 1/2 ANTIGEN/ANTIBODY, Routine 02/07/2023 Re sults for FOURTH GEN W/RFL 6:52 AM CDT this proced ure are in the results section. BLOOD CULTURE Routine 02/07/2023 Results for 6:52 AM CDT [...] procedure are in the results section. BLOOD CULTURE STAT 02/06/2023 Results for 11:11 AM CDT this procedure are in the results section. BLOOD CULTURE STAT 02/06/2023 Results for 11:11 AM CDT [...] this procedure are in the results section. DIFFERENTIAL AM 02/06/2023 Results for 3:05 AM CDT this procedure are in the results section. .CBC STAT 02/06/2023 Results for 3:05 AM CDT this procedure are in the results section. CALCIUM LEVEL AM 02/06/2023 Results for 3:05 AM [...] procedure are in the results section. BLOOD CULTURE Routine 02/05/2023 Results for 3:39 PM CDT [...] are in the results section. CALCIUM LEVEL Routine 02/05/2023 Results for 3:30 PM [...] this procedure are in the results section. DIFFERENTIAL STAT 02/05/2023 Results for 3:30 PM CDT this procedure are in the results section. .CBC STAT 02/05/2023 Results for 3:30 PM CDT [...] W/ Routine 02/05/2023 DIFFERENTIAL 3:30 PM CDT BLOOD CULTURE Routine 02/05/2023 Results for 3:30 PM CDT this procedure are in the results section. URINALYSIS WITH STAT 02/05/2023 Results for MICROSCOPIC 12:39 AM CDT this procedure are in the results section. EKG, 12-LEAD (PORTABLE) STAT 02/05/2023 DIFFERENTIAL Routine 02/04/2023 Adenoid cystic Results for 12:33 PM CDT carcinoma of this procedure nasopharynx, NOS are in the results section. .CBC Routine 02/04/2023 Adenoid cystic Results for 12:33 [...] are in the results section. CALCIUM LEVEL Routine 02/04/2023 Adenoid cystic Results for [...] this procedure are in the results section. DIFFERENTIAL AM 02/01/2023 Results for 4:00 AM CDT this procedure are in the results section. .CBC AM 02/01/2023 Results for 4:00 AM CDT this procedure are in the results section. CALCIUM LEVEL AM 02/01/2023 Results for 4:00 AM [...] this procedure are in the results section. DIFFERENTIAL AM 01/31/2023 Results for 3:15 AM CDT this procedure are in the results section. .CBC AM 01/31/2023 Results for 3:15 AM CDT this procedure are in the results section. CALCIUM LEVEL AM 01/31/2023 Results for 3:15 AM [...] this procedure are in the results section. DIFFERENTIAL AM 01/30/2023 Results for 3:14 AM CDT this procedure are in the results section. .CBC AM 01/30/2023 Results for 3:14 AM CDT this procedure are in the results section. CALCIUM LEVEL AM 01/30/2023 Results for 3:14 AM [...] this procedure are in the results section. DIFFERENTIAL AM 01/29/2023 Results for 3:33 AM CDT this procedure are in the results section. .CBC AM 01/29/2023 Results for 3:33 AM CDT this procedure are in the results section. CALCIUM LEVEL AM 01/29/2023 Results for 3:33 AM [...] this procedure are in the results section. DIFFERENTIAL AM 01/28/2023 Results for 3:00 AM CDT this procedure are in the results section. .CBC AM 01/28/2023 Results for 3:00 AM CDT this procedure are in the results section. CALCIUM LEVEL AM 01/28/2023 Results for 3:00 AM [...] this procedure are in the results section. DIFFERENTIAL AM 01/27/2023 Results for 2:48 AM CDT this procedure are in the results section. .CBC AM 01/27/2023 Results for 2:48 AM CDT this procedure are in the results section. CALCIUM LEVEL AM 01/27/2023 Results for 2:48 AM [...] are in the results section. CALCIUM LEVEL Routine 01/26/2023 Results for 2:44 PM [...] this procedure are in the results section. DIFFERENTIAL STAT 01/26/2023 Results for 2:44 PM CDT this procedure are in the results section. .CBC STAT 01/26/2023 Results for 2:44 PM CDT [...] W/ Routine 01/26/2023 DIFFERENTIAL 2:44 PM CDT BLOOD CULTURE Routine 01/26/2023 Results for 2:44 PM CDT this procedure are in the results section. DIFFERENTIAL Routine 01/20/2023 Adenoid cystic Results for 12:53 PM CDT carcinoma of this procedure nasopharynx, NOS are in the results section. .CBC Routine 01/20/2023 Adenoid cystic Results for 12:53 [...] are in the results section. CALCIUM LEVEL Routine 01/20/2023 Adenoid cystic Results for [...] the results section. CONTROLLED SUBSTANCE Routine 01/20/2023 [facility] current Re sults for MONITORING PANEL, URINE 12:37 PM CDT use of opiate thi s procedure analgesic are in the results section. POC GLUCOSE SCREEN Routine 01/18/2023 Results f or 1:10 PM CDT this procedure are in the results section. POC GLUCOSE SCREEN Routine 01/18/2023 Results f or 7:46 AM CDT this procedure are in the results section. DIFFERENTIAL AM 01/18/2023 Results for 4:03 AM CDT this procedure are in the results section. .CBC AM 01/18/2023 Results for 4:03 AM CDT this procedure are in the results section. CALCIUM LEVEL AM 01/18/2023 Results for 4:03 AM [...] this procedure are in the results section. DIFFERENTIAL AM 01/17/2023 Results for 4:31 AM CDT this procedure are in the results section. .CBC AM 01/17/2023 Results for 4:31 AM CDT this procedure are in the results section. CALCIUM LEVEL AM 01/17/2023 Results for 4:31 AM [...] this procedure are in the results section. DIFFERENTIAL AM 01/16/2023 Results for 6:22 AM CDT this procedure are in the results section. .CBC AM 01/16/2023 Results for 6:22 AM CDT this procedure are in the results section. CALCIUM LEVEL AM 01/16/2023 Results for 6:22 AM [...] this procedure are in the results section. DIFFERENTIAL AM 01/15/2023 Results for 2:23 AM CDT this procedure are in the results section. .CBC AM 01/15/2023 Results for 2:23 AM CDT this procedure are in the results section. CALCIUM LEVEL AM 01/15/2023 Results for 2:23 AM [...] this procedure are in the results section. DIFFERENTIAL AM 01/14/2023 Results for 3:31 AM CDT this procedure are in the results section. .CBC AM 01/14/2023 Results for 3:31 AM CDT this procedure are in the results section. CALCIUM LEVEL AM 01/14/2023 Results for 3:31 AM [...] this procedure are in the results section. DIFFERENTIAL AM 01/13/2023 Results for 2:55 AM CDT this procedure are in the results section. .CBC AM 01/13/2023 Results for 2:55 AM CDT this procedure are in the results section. CALCIUM LEVEL AM 01/13/2023 Results for 2:55 AM [...] this procedure are in the results section. DIFFERENTIAL AM 01/12/2023 Results for 3:03 AM CDT this procedure are in the results section. .CBC AM 01/12/2023 Results for 3:03 AM CDT this procedure are in the results section. CALCIUM LEVEL AM 01/12/2023 Results for 3:03 AM [...] are in the results section. CALCIUM LEVEL Routine 01/11/2023 Results for 4:11 PM [...] this procedure are in the results section. DIFFERENTIAL Routine 01/11/2023 Results for 4:11 PM CDT this procedure are in the results section. .CBC STAT 01/11/2023 Results for 4:11 PM CDT [...] W/ Routine 01/11/2023 DIFFERENTIAL 4:11 PM CDT DIFFERENTIAL Routine 01/07/2023 Adenoid cystic Results for 8:28 AM [employer] carcinoma of this procedure nasopharynx, NOS are in the results section. .CBC Routine 01/07/2023 Adenoid cystic Results for 8:28 AM [employer] carcinoma of this procedure nasopharynx, NOS are in the results section. FRACTIONATED BILIRUBIN Routine 01/07/2023 Adenoid cystic Res ults for 8:28 AM [employer] carcinoma of this procedure nasopharynx, NOS are in the results section. TOTAL PROTEIN Routine 01/07/2023 Adenoid cystic Results for 8:28 AM [employer] carcinoma of this procedure nasopharynx, NOS are in the results section. ASPARTATE AMINOTRANSFERASE Routine 01/07/2023 Adenoid cystic Results for 8:28 AM [employer] carcinoma of this procedure nasopharynx, NOS are in the results section. ALANINE AMINOTRANSFERASE Routine 01/07/2023 Adenoid cystic R esults for 8:28 AM [employer] carcinoma of this procedure nasopharynx, NOS are in the results section. 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 BLOOD UREA NITROGEN Routine 01/01/2023 Adenoid cystic Result s for 8:26 AM [employer] carcinoma of this procedure nasopharynx, NOS are in the results section. 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 COMPLETE BLOOD COUNT W/ Routine 01/01/2023 Adenoid cystic DIFFERENTIAL 8:26 AM [employer] carcinoma of nasopharynx, NOS COMPREHENSIVE METABOLIC Routine 01/01/2023 Adenoid cystic PANEL 8:26 AM [employer] carcinoma of nasopharynx, NOS [place] [employer], Routine 12/29/2022 Sixth (abducent) R esults for INTERMEDIATE - OU - BOTH 10:51 AM [employer] nerve palsy, lef t this procedure EYES eye are in the results section. OCT, OPTIC NERVE - OU - Routine 12/29/2022 Sixth (abducent) Results for BOTH EYES 10:43 AM [employer] nerve palsy, left this proce dure eye are in the results section. OCT, RETINA - OU - BOTH Routine 12/29/2022 Sixth (abducent) Results for EYES 10:43 AM [employer] nerve palsy, left this proce dure eye are in the results section. 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 FRACTIONATED BILIRUBIN Routine 12/24/2022 Adenoid cystic Res ults for 9:16 AM [employer] carcinoma of this procedure nasopharynx, NOS are in the results section. TOTAL PROTEIN Routine 12/24/2022 Adenoid cystic Results for 9:16 AM [employer] carcinoma of this procedure nasopharynx, NOS are in the results section. 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 ALANINE AMINOTRANSFERASE Routine 12/24/2022 Adenoid cystic R esults for 9:16 AM [employer] carcinoma of this procedure nasopharynx, NOS are in the results section. ALKALINE PHOSPHATASE Routine 12/24/2022 Adenoid cystic Resul ts for 9:16 AM [employer] carcinoma of this procedure nasopharynx, NOS are in the results section. ALBUMIN LEVEL Routine 12/24/2022 Adenoid cystic Results for 9:16 AM [employer] carcinoma of this procedure nasopharynx, NOS are in the results section. 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 SERUM CREATININE Routine 12/24/2022 Adenoid cystic Results f or 9:16 AM [employer] carcinoma of this procedure nasopharynx, NOS are in the results section. 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 BLOOD UREA NITROGEN Routine 12/24/2022 Adenoid cystic Result s for 9:16 AM [employer] carcinoma of this procedure nasopharynx, NOS are in the results section. GLUCOSE LEVEL Routine 12/24/2022 Adenoid cystic Results for 9:16 AM [employer] carcinoma of this procedure nasopharynx, NOS are in the results section. PHOSPHORUS LEVEL Routine 12/24/2022 Adenoid cystic Results f or 9:16 AM [employer] carcinoma of this procedure nasopharynx, NOS are in the results section. MAGNESIUM LEVEL Routine 12/24/2022 Adenoid cystic Results fo r 9:16 AM [employer] carcinoma of this procedure nasopharynx, NOS are in the results section. COMPLETE BLOOD COUNT W/ Routine 12/24/2022 Adenoid cystic DIFFERENTIAL 9:16 AM [employer] carcinoma of nasopharynx, NOS COMPREHENSIVE METABOLIC Routine 12/24/2022 Adenoid cystic PANEL 9:16 AM [employer] carcinoma of nasopharynx, NOS COVID-19 (SARS-COV-2) PCR Routine 12/23/2022 Suspected COVID -19 Results for - ASYMPTOMATIC - MC 12:01 PM [employer] this pro cedure are in the results section. POC GLUCOSE SCREEN Routine 12/15/2022 Results f or 6:07 PM [employer] this procedure are in the results section. POC GLUCOSE SCREEN Routine 12/15/2022 Results f or 12:52 PM [employer] this procedure are in the results section. OCT, OPTIC NERVE - OU - Routine 12/15/2022 Diplopia Resu lts for BOTH EYES 10:37 AM [employer] this procedure are in the results section. OCT, RETINA - OU - BOTH Routine 12/15/2022 Diplopia Resu lts for EYES 10:37 AM [employer] this procedure are in the results section. FUNDUS PHOTOS - OU - BOTH Routine 12/15/2022 Diplopia Re sults for EYES 10:37 AM [employer] this procedure are in the results section. 3D DENTAL IMAGING (ICAT) Routine 12/15/2022 Encounter for Re sults for 8:42 AM [employer] observation for this procedu re other suspected are in the disease ruled out results section. POC GLUCOSE SCREEN Routine 12/15/2022 Results f or 7:19 AM [employer] this procedure are in the results section. POC GLUCOSE SCREEN Routine 12/15/2022 Results f or 6:12 AM [employer] this procedure are in the results section. DIFFERENTIAL AM 12/15/2022 Results for 3:44 AM [employer] this procedure are in the results section. .CBC AM 12/15/2022 Results for 3:44 AM [employer] this procedure are in the results section. CALCIUM LEVEL AM 12/15/2022 Results for 3:44 AM [employer] this procedure are in the results section. .GLOMERULAR FILTRATION AM 12/15/2022 Resul ts for RATE 3:44 AM [employer] this procedure are in the results section. SERUM CREATININE AM 12/15/2022 Results for 3:44 AM [employer] this procedure are in the results section. ELECTROLYTE PANEL AM 12/15/2022 Results fo r 3:44 AM [employer] this procedure are in the results section. BLOOD UREA NITROGEN AM 12/15/2022 Results for 3:44 AM [employer] this procedure are in the results section. GLUCOSE LEVEL AM 12/15/2022 Results for 3:44 AM [employer] this procedure are in the results section. COMPLETE BLOOD COUNT W/ AM 12/15/2022 DIFFERENTIAL 3:44 AM [employer] PHOSPHORUS LEVEL AM 12/15/2022 Results for 3:44 AM [employer] this procedure are in the results section. MAGNESIUM LEVEL AM 12/15/2022 Results for 3:44 AM [employer] this procedure are in the results section. BASIC METABOLIC PANEL, AM 12/15/2022 CALCIUM TOTAL 3:44 AM [employer] POC GLUCOSE SCREEN Routine 12/15/2022 Results f or 2:28 AM [employer] this procedure are in the results section. POC GLUCOSE SCREEN Routine 12/14/2022 Results f or 10:04 PM [employer] this procedure are in the results section. POC GLUCOSE SCREEN Routine 12/14/2022 Results f or 5:26 PM [employer] this procedure are in the results section. POC GLUCOSE SCREEN Routine 12/14/2022 Results f or 4:14 PM [employer] this procedure are in the results section. FL MODIFIED BARIUM SWALLOW Routine 12/14/2022 R esults for W SPEECH 2:37 PM [employer] this procedure are in the results section. POC GLUCOSE SCREEN Routine 12/14/2022 Results f or 12:08 PM [employer] this procedure are in the results section. GENERAL LABORATORY ADD ON Routine 12/14/2022 Re sults for TEST 8:03 AM [employer] this procedure are in the results section. POC GLUCOSE SCREEN Routine 12/14/2022 Results f or 7:25 AM [employer] this procedure are in the results section. POC GLUCOSE SCREEN Routine 12/14/2022 Results f or 5:55 AM [employer] this procedure are in the results section. FRACTIONATED BILIRUBIN AM 12/14/2022 Resul ts for 4:46 AM [employer] this procedure are in the results section. TOTAL PROTEIN AM 12/14/2022 Results for 4:46 AM [employer] this procedure are in the results section. ASPARTATE AMINOTRANSFERASE AM 12/14/2022 R esults for 4:46 AM [employer] this procedure are in the results section. ALANINE AMINOTRANSFERASE AM 12/14/2022 Res ults for 4:46 AM [employer] this procedure are in the results section. ALKALINE PHOSPHATASE AM 12/14/2022 Results for 4:46 AM [employer] this procedure are in the results section. ALBUMIN LEVEL AM 12/14/2022 Results for 4:46 AM [employer] this procedure are in the results section. DIFFERENTIAL AM 12/14/2022 Results for 4:46 AM [employer] this procedure are in the results section. .CBC AM 12/14/2022 Results for 4:46 AM [employer] this procedure are in the results section. CALCIUM LEVEL AM 12/14/2022 Results for 4:46 AM [employer] this procedure are in the results section. .GLOMERULAR FILTRATION AM 12/14/2022 Resul ts for RATE 4:46 AM [employer] this procedure are in the results section. SERUM CREATININE AM 12/14/2022 Results for 4:46 AM [employer] this procedure are in the results section. ELECTROLYTE PANEL AM 12/14/2022 Results fo r 4:46 AM [employer] this procedure are in the results section. BLOOD UREA NITROGEN AM 12/14/2022 Results for 4:46 AM [employer] this procedure are in the results section. GLUCOSE LEVEL AM 12/14/2022 Results for 4:46 AM [employer] this procedure are in the results section. COMPLETE BLOOD COUNT W/ AM 12/14/2022 DIFFERENTIAL 4:46 AM [employer] PHOSPHORUS LEVEL AM 12/14/2022 Results for 4:46 AM [employer] this procedure are in the results section. MAGNESIUM LEVEL AM 12/14/2022 Results for 4:46 AM [employer] this procedure are in the results section. BASIC METABOLIC PANEL, AM 12/14/2022 CALCIUM TOTAL 4:46 AM [employer] POC GLUCOSE SCREEN Routine 12/14/2022 Results f or 1:36 AM [employer] this procedure are in the results section. POC GLUCOSE SCREEN Routine 12/13/2022 Results f or 9:56 PM [employer] this procedure are in the results section. POC GLUCOSE SCREEN Routine 12/13/2022 Results f or 6:31 PM [employer] this procedure are in the results section. POC GLUCOSE SCREEN Routine 12/13/2022 Results f or 1:24 PM [employer] this procedure are in the results section. POC GLUCOSE SCREEN Routine 12/13/2022 Results f or 8:02 AM [employer] this procedure are in the results section. POC GLUCOSE SCREEN Routine 12/13/2022 Results f or 5:58 AM [employer] this procedure are in the results section. POC GLUCOSE SCREEN Routine 12/13/2022 Results f or 3:24 AM [employer] this procedure are in the results section. DIFFERENTIAL AM 12/13/2022 Results for 3:12 AM [employer] this procedure are in the results section. .CBC AM 12/13/2022 Results for 3:12 AM [employer] this procedure are in the results section. CALCIUM LEVEL AM 12/13/2022 Results for 3:12 AM [employer] this procedure are in the results section. .GLOMERULAR FILTRATION AM 12/13/2022 Resul ts for RATE 3:12 AM [employer] this procedure are in the results section. SERUM CREATININE AM 12/13/2022 Results for 3:12 AM [employer] this procedure are in the results section. ELECTROLYTE PANEL AM 12/13/2022 Results fo r 3:12 AM [employer] this procedure are in the results section. BLOOD UREA NITROGEN AM 12/13/2022 Results for 3:12 AM [employer] this procedure are in the results section. GLUCOSE LEVEL AM 12/13/2022 Results for 3:12 AM [employer] this procedure are in the results section. COMPLETE BLOOD COUNT W/ AM 12/13/2022 DIFFERENTIAL 3:12 AM [employer] PHOSPHORUS LEVEL AM 12/13/2022 Results for 3:12 AM [employer] this procedure are in the results section. MAGNESIUM LEVEL AM 12/13/2022 Results for 3:12 AM [employer] this procedure are in the results section. BASIC METABOLIC PANEL, AM 12/13/2022 CALCIUM TOTAL 3:12 AM [employer] POC GLUCOSE SCREEN Routine 12/12/2022 Results f or 9:43 PM [employer] this procedure are in the results section. POC GLUCOSE SCREEN Routine 12/12/2022 Results f or 6:16 PM [employer] this procedure are in the results section. POC GLUCOSE SCREEN Routine 12/12/2022 Results f or 12:52 PM [employer] this procedure are in the results section. POC GLUCOSE SCREEN Routine 12/12/2022 Results f or 7:47 AM [employer] this procedure are in the results section. POC GLUCOSE SCREEN Routine 12/12/2022 Results f or 5:52 AM [employer] this procedure are in the results section. DIFFERENTIAL AM 12/12/2022 Results for 4:30 AM [employer] this procedure are in the results section. .CBC AM 12/12/2022 Results for 4:30 AM [employer] this procedure are in the results section. CALCIUM LEVEL AM 12/12/2022 Results for 4:30 AM [employer] this procedure are in the results section. .GLOMERULAR FILTRATION AM 12/12/2022 Resul ts for RATE 4:30 AM [employer] this procedure are in the results section. SERUM CREATININE AM 12/12/2022 Results for 4:30 AM [employer] this procedure are in the results section. ELECTROLYTE PANEL AM 12/12/2022 Results fo r 4:30 AM [employer] this procedure are in the results section. BLOOD UREA NITROGEN AM 12/12/2022 Results for 4:30 AM [employer] this procedure are in the results section. GLUCOSE LEVEL AM 12/12/2022 Results for 4:30 AM [employer] this procedure are in the results section. COMPLETE BLOOD COUNT W/ AM 12/12/2022 DIFFERENTIAL 4:30 AM [employer] PHOSPHORUS LEVEL AM 12/12/2022 Results for 4:30 AM [employer] this procedure are in the results section. MAGNESIUM LEVEL AM 12/12/2022 Results for 4:30 AM [employer] this procedure are in the results section. BASIC METABOLIC PANEL, AM 12/12/2022 CALCIUM TOTAL 4:30 AM [employer] POC GLUCOSE SCREEN Routine 12/12/2022 Results f or 2:06 AM [employer] this procedure are in the results section. POC GLUCOSE SCREEN Routine 12/11/2022 Results f or 10:01 PM [employer] this procedure are in the results section. LACTIC ACID, VENOUS Timed Study 12/11/2022 Results for 9:50 PM [employer] this procedure are in the results section. LIPASE LEVEL STAT 12/11/2022 Results for 6:21 PM [employer] this procedure are in the results section. BLOOD GAS VENOUS STAT 12/11/2022 Results for 6:21 PM [employer] this procedure are in the results section. POC GLUCOSE SCREEN Routine 12/11/2022 Results f or 6:10 PM [employer] this procedure are in the results section. GENERAL LABORATORY ADD ON Routine 12/11/2022 Re sults for TEST 5:39 PM [employer] this procedure are in the results section. KETONE BODIES QUALITATIVE STAT 12/11/2022 Re sults for 5:19 PM ACTIVITIES DIRECTOR SCOUTING this procedure are in the results section. POC GLUCOSE SCREEN Routine 12/11/2022 Results f or 4:51 PM ACTIVITIES DIRECTOR SCOUTING this procedure are in the results section. LIPASE LEVEL STAT 12/11/2022 Results for 4:33 PM ACTIVITIES DIRECTOR SCOUTING this procedure are in the results section. ELECTROLYTE PANEL STAT 12/11/2022 Results fo r 4:33 PM ACTIVITIES DIRECTOR SCOUTING this procedure are in the results section. LACTIC ACID, VENOUS Timed Study 12/11/2022 Results for 4:33 PM ACTIVITIES DIRECTOR SCOUTING this procedure are in the results section. POC GLUCOSE SCREEN Routine 12/11/2022 Results f or 3:34 PM ACTIVITIES DIRECTOR SCOUTING this procedure are in the results section. POC CRITICAL Routine 12/11/2022 Results for 3:34 PM ACTIVITIES DIRECTOR SCOUTING this procedure are in the results section. POC GLUCOSE SCREEN Routine 12/11/2022 Results f or 2:33 PM ACTIVITIES DIRECTOR SCOUTING this procedure are in the results section. POC CRITICAL Routine 12/11/2022 Results for 2:33 PM ACTIVITIES DIRECTOR SCOUTING this procedure are in the results section. POC GLUCOSE SCREEN Routine 12/11/2022 Results f or 12:35 PM ACTIVITIES DIRECTOR SCOUTING this procedure are in the results section. POC GLUCOSE SCREEN Routine 12/11/2022 Results f or 8:14 AM ACTIVITIES DIRECTOR SCOUTING this procedure are in the results section. LACTIC ACID, VENOUS Routine 12/11/2022 Results for 4:37 AM ACTIVITIES DIRECTOR SCOUTING this procedure are in the results section. DIFFERENTIAL AM 12/11/2022 Results for 4:30 AM ACTIVITIES DIRECTOR SCOUTING this procedure are in the results section. .CBC AM 12/11/2022 Results for 4:30 AM ACTIVITIES DIRECTOR SCOUTING this procedure are in the results section. CALCIUM LEVEL AM 12/11/2022 Results for 4:30 AM ACTIVITIES DIRECTOR SCOUTING this procedure are in the results section. .GLOMERULAR FILTRATION AM 12/11/2022 Resul ts for RATE 4:30 AM ACTIVITIES DIRECTOR SCOUTING this procedure are in the results section. SERUM CREATININE AM 12/11/2022 Results for 4:30 AM ACTIVITIES DIRECTOR SCOUTING this procedure are in the results section. ELECTROLYTE PANEL AM 12/11/2022 Results fo r 4:30 AM ACTIVITIES DIRECTOR SCOUTING this procedure are in the results section. BLOOD UREA NITROGEN AM 12/11/2022 Results for 4:30 AM ACTIVITIES DIRECTOR SCOUTING this procedure are in the results section. GLUCOSE LEVEL AM 12/11/2022 Results for 4:30 AM ACTIVITIES DIRECTOR SCOUTING this procedure are in the results section. COMPLETE BLOOD COUNT W/ AM 12/11/2022 DIFFERENTIAL 4:30 AM ACTIVITIES DIRECTOR SCOUTING PHOSPHORUS LEVEL AM 12/11/2022 Results for 4:30 AM ACTIVITIES DIRECTOR SCOUTING this procedure are in the results section. MAGNESIUM LEVEL AM 12/11/2022 Results for 4:30 AM ACTIVITIES DIRECTOR SCOUTING this procedure are in the results section. BASIC METABOLIC PANEL, AM 12/11/2022 CALCIUM TOTAL 4:30 AM ACTIVITIES DIRECTOR SCOUTING POC GLUCOSE SCREEN Routine 12/11/2022 Results f or 1:20 AM ACTIVITIES DIRECTOR SCOUTING this procedure are in the results section. POC GLUCOSE SCREEN Routine 12/10/2022 Results f or 10:00 PM ACTIVITIES DIRECTOR SCOUTING this procedure are in the results section. POC GLUCOSE SCREEN Routine 12/10/2022 Results f or 6:29 PM ACTIVITIES DIRECTOR SCOUTING this procedure are in the results section. POC GLUCOSE SCREEN Routine 12/10/2022 Results f or 5:20 PM ACTIVITIES DIRECTOR SCOUTING this procedure are in the results section. CT HEAD WO CONTRAST STAT 12/10/2022 Results for 3:21 PM ACTIVITIES DIRECTOR SCOUTING this procedure are in the results section. POC GLUCOSE SCREEN Routine 12/10/2022 Results f or 1:45 PM ACTIVITIES DIRECTOR SCOUTING this procedure are in the results section. POC GLUCOSE SCREEN Routine 12/10/2022 Results f or 11:35 AM ACTIVITIES DIRECTOR SCOUTING this procedure are in the results section. POC GLUCOSE SCREEN Routine 12/10/2022 Results f or 7:30 AM ACTIVITIES DIRECTOR SCOUTING this procedure are in the results section. URINALYSIS WITH Routine 12/10/2022 Results for MICROSCOPIC IF INDICATED 6:13 AM ACTIVITIES DIRECTOR SCOUTING thi s procedure are in the results section. URINE CULTURE Routine 12/10/2022 Results for 6:13 AM ACTIVITIES DIRECTOR SCOUTING this procedure are in the results section. DIFFERENTIAL STAT 12/10/2022 Results for 5:13 AM ACTIVITIES DIRECTOR SCOUTING this procedure are in the results section. .CBC STAT 12/10/2022 Results for 5:13 AM ACTIVITIES DIRECTOR SCOUTING this procedure are in the results section. CALCIUM LEVEL AM 12/10/2022 Results for 5:13 AM ACTIVITIES DIRECTOR SCOUTING this procedure are in the results section. .GLOMERULAR FILTRATION AM 12/10/2022 Resul ts for RATE 5:13 AM ACTIVITIES DIRECTOR SCOUTING this procedure are in the results section. SERUM CREATININE AM 12/10/2022 Results for 5:13 AM ACTIVITIES DIRECTOR SCOUTING this procedure are in the results section. ELECTROLYTE PANEL AM 12/10/2022 Results fo r 5:13 AM ACTIVITIES DIRECTOR SCOUTING this procedure are in the results section. BLOOD UREA NITROGEN AM 12/10/2022 Results for 5:13 AM ACTIVITIES DIRECTOR SCOUTING this procedure are in the results section. GLUCOSE LEVEL AM 12/10/2022 Results for 5:13 AM ACTIVITIES DIRECTOR SCOUTING this procedure are in the results section. HEMOGLOBIN A1C Routine 12/10/2022 Results for 5:13 AM ACTIVITIES DIRECTOR SCOUTING this procedure are in the results section. COMPLETE BLOOD COUNT W/ AM 12/10/2022 DIFFERENTIAL 5:13 AM ACTIVITIES DIRECTOR SCOUTING PHOSPHORUS LEVEL AM 12/10/2022 Results for 5:13 AM ACTIVITIES DIRECTOR SCOUTING this procedure are in the results section. MAGNESIUM LEVEL AM 12/10/2022 Results for 5:13 AM ACTIVITIES DIRECTOR SCOUTING this procedure are in the results section. BASIC METABOLIC PANEL, AM 12/10/2022 CALCIUM TOTAL 5:13 AM ACTIVITIES DIRECTOR SCOUTING POC GLUCOSE SCREEN Routine 12/10/2022 Results f or 1:38 AM ACTIVITIES DIRECTOR SCOUTING this procedure are in the results section. POC GLUCOSE SCREEN Routine 12/09/2022 Results f or 11:18 PM ACTIVITIES DIRECTOR SCOUTING this procedure are in the results section. POC VENOUS BLOOD GAS + Routine 12/09/2022 Resul ts for LACTATE 9:36 PM ACTIVITIES DIRECTOR SCOUTING this procedure are in the results section. FRACTIONATED BILIRUBIN Routine 12/09/2022 Resul ts for 6:01 PM ACTIVITIES DIRECTOR SCOUTING this procedure are in the results section. TOTAL PROTEIN Routine 12/09/2022 Results for 6:01 PM ACTIVITIES DIRECTOR SCOUTING this procedure are in the results section. ASPARTATE AMINOTRANSFERASE Routine 12/09/2022 R esults for 6:01 PM ACTIVITIES DIRECTOR SCOUTING this procedure are in the results section. ALANINE AMINOTRANSFERASE Routine 12/09/2022 Res ults for 6:01 PM ACTIVITIES DIRECTOR SCOUTING this procedure are in the results section. ALKALINE PHOSPHATASE Routine 12/09/2022 Results for 6:01 PM ACTIVITIES DIRECTOR SCOUTING this procedure are in the results section. ALBUMIN LEVEL Routine 12/09/2022 Results for 6:01 PM ACTIVITIES DIRECTOR SCOUTING this procedure are in the results section. CALCIUM LEVEL Routine 12/09/2022 Results for 6:01 PM ACTIVITIES DIRECTOR SCOUTING this procedure are in the results section. .GLOMERULAR FILTRATION Routine 12/09/2022 Resul ts for RATE 6:01 PM ACTIVITIES DIRECTOR SCOUTING this procedure are in the results section. SERUM CREATININE Routine 12/09/2022 Results for 6:01 PM ACTIVITIES DIRECTOR SCOUTING this procedure are in the results section. ELECTROLYTE PANEL Routine 12/09/2022 Results fo r 6:01 PM ACTIVITIES DIRECTOR SCOUTING this procedure are in the results section. BLOOD UREA NITROGEN Routine 12/09/2022 Results for 6:01 PM ACTIVITIES DIRECTOR SCOUTING this procedure are in the results section. GLUCOSE LEVEL Routine 12/09/2022 Results for 6:01 PM ACTIVITIES DIRECTOR SCOUTING this procedure are in the results section. DIFFERENTIAL STAT 12/09/2022 Results for 6:01 PM ACTIVITIES DIRECTOR SCOUTING this procedure are in the results section. .CBC STAT 12/09/2022 Results for 6:01 PM ACTIVITIES DIRECTOR SCOUTING this procedure are in the results section. LACTATE DEHYDROGENASE Routine 12/09/2022 Result s for 6:01 PM ACTIVITIES DIRECTOR SCOUTING this procedure are in the results section. APTT Routine 12/09/2022 Results for 6:01 PM ACTIVITIES DIRECTOR SCOUTING this procedure are in the results section. PROTHROMBIN TIME Routine 12/09/2022 Results for 6:01 PM ACTIVITIES DIRECTOR SCOUTING this procedure are in the results section. PHOSPHORUS LEVEL Routine 12/09/2022 Results for 6:01 PM ACTIVITIES DIRECTOR SCOUTING this procedure are in the results section. MAGNESIUM LEVEL Routine 12/09/2022 Results for 6:01 PM ACTIVITIES DIRECTOR SCOUTING this procedure are in the results section. COMPREHENSIVE METABOLIC Routine 12/09/2022 PANEL 6:01 PM ACTIVITIES DIRECTOR SCOUTING COMPLETE BLOOD COUNT W/ Routine 12/09/2022 DIFFERENTIAL 6:01 PM ACTIVITIES DIRECTOR SCOUTING AMMONIA LEVEL Routine 12/09/2022 Results for 6:01 PM ACTIVITIES DIRECTOR SCOUTING this procedure are in the results section. COVID-19 (SARS-COV-2)PCR Routine 12/09/2022 R esults for - ASYMPTOMATIC - LT 6:01 PM ACTIVITIES DIRECTOR SCOUTING this pro cedure are in the results section. HP MOLECULAR BLOOD Routine 12/04/2022 Results f or COLLECTION 10:56 AM ACTIVITIES DIRECTOR SCOUTING this procedure are in the results section. ANA CRISTINA GRIFFIN SOLID TUMOR GENOMIC Routine 12/04/2022 ASSAY FUSIONS 2018 10:56 AM ACTIVITIES DIRECTOR SCOUTING INTERPRETATION AND REPORT ANA CRISTINA GRIFFIN MDA CHRISTINE MUTATION Routine 12/04/2022 ANALYSIS PRECISION PANEL 10:56 AM ACTIVITIES DIRECTOR SCOUTING INTERPRETATION AND REPORT MRI SKULL BASE WITH AND Routine 11/30/2022 Adenocarcinoma of Results for WITHOUT CONTRAST 11:12 AM ACTIVITIES DIRECTOR SCOUTING nasopharynx this proced ure are in the results section. PETCT F18 FDG Routine 11/27/2022 Adenocarcinoma of Results f or (FLUORODEOXYGLUCOSE) WITH 3:57 PM ACTIVITIES DIRECTOR SCOUTING nasoph arynx this procedure CONTRAST Malignant neoplasm are in th e of overlapping results sites of section. nasopharynx POC GLUCOSE SCREEN Routine 11/27/2022 Results f or 1:06 PM ACTIVITIES DIRECTOR SCOUTING this procedure are in the results section. POC GLUCOSE SCREEN Routine 11/27/2022 Results f or 12:29 PM ACTIVITIES DIRECTOR SCOUTING this procedure are in the results section. FRACTIONATED BILIRUBIN Routine 11/26/2022 Adenocarcinoma of Results for 1:07 PM ACTIVITIES DIRECTOR SCOUTING nasopharynx this procedure are in the results section. TOTAL PROTEIN Routine 11/26/2022 Adenocarcinoma of Results f or 1:07 PM ACTIVITIES DIRECTOR SCOUTING nasopharynx this procedure are in the results section. ASPARTATE AMINOTRANSFERASE Routine 11/26/2022 Adenocarcinoma of Results for 1:07 PM ACTIVITIES DIRECTOR SCOUTING nasopharynx this procedure are in the results section. ALANINE AMINOTRANSFERASE Routine 11/26/2022 Adenocarcinoma o f Results for 1:07 PM ACTIVITIES DIRECTOR SCOUTING nasopharynx this procedure are in the results section. ALKALINE PHOSPHATASE Routine 11/26/2022 Adenocarcinoma of Re sults for 1:07 PM ACTIVITIES DIRECTOR SCOUTING nasopharynx this procedure are in the results section. ALBUMIN LEVEL Routine 11/26/2022 Adenocarcinoma of Results f or 1:07 PM ACTIVITIES DIRECTOR SCOUTING nasopharynx this procedure are in the results section. CALCIUM LEVEL Routine 11/26/2022 Adenocarcinoma of Results f or 1:07 PM ACTIVITIES DIRECTOR SCOUTING nasopharynx this procedure are in the results section. .GLOMERULAR FILTRATION Routine 11/26/2022 Adenocarcinoma of Results for RATE 1:07 PM ACTIVITIES DIRECTOR SCOUTING nasopharynx this procedure are in the results section. SERUM CREATININE Routine 11/26/2022 Adenocarcinoma of Result s for 1:07 PM ACTIVITIES DIRECTOR SCOUTING nasopharynx this procedure are in the results section. ELECTROLYTE PANEL Routine 11/26/2022 Adenocarcinoma of Resul ts for 1:07 PM ACTIVITIES DIRECTOR SCOUTING nasopharynx this procedure are in the results section. BLOOD UREA NITROGEN Routine 11/26/2022 Adenocarcinoma of Res ults for 1:07 PM ACTIVITIES DIRECTOR SCOUTING nasopharynx this procedure are in the results section. GLUCOSE LEVEL Routine 11/26/2022 Adenocarcinoma of Results f or 1:07 PM ACTIVITIES DIRECTOR SCOUTING nasopharynx this procedure are in the results section. DIFFERENTIAL Routine 11/26/2022 Adenocarcinoma of Results fo r 1:07 PM ACTIVITIES DIRECTOR SCOUTING nasopharynx this procedure are in the results section. .CBC Routine 11/26/2022 Adenocarcinoma of Results fo r 1:07 PM ACTIVITIES DIRECTOR SCOUTING nasopharynx this procedure are in the results section. PROTHROMBIN TIME Routine 11/26/2022 Adenocarcinoma of Result s for 1:07 PM ACTIVITIES DIRECTOR SCOUTING nasopharynx this procedure are in the results section. APTT Routine 11/26/2022 Adenocarcinoma of Results fo r 1:07 PM ACTIVITIES DIRECTOR SCOUTING nasopharynx this procedure are in the results section. THYROID STIMULATING Routine 11/26/2022 Adenocarcinoma of Res ults for HORMONE 1:07 PM ACTIVITIES DIRECTOR SCOUTING nasopharynx this procedure are in the results section. VITAMIN D 25 HYDROXY LEVEL Routine 11/26/2022 Adenocarcinoma of Results for 1:07 PM ACTIVITIES DIRECTOR SCOUTING nasopharynx this procedure are in the results section. URIC ACID Routine 11/26/2022 Adenocarcinoma of Results fo r 1:07 PM ACTIVITIES DIRECTOR SCOUTING nasopharynx this procedure are in the results section. PHOSPHORUS LEVEL Routine 11/26/2022 Adenocarcinoma of Result s for 1:07 PM ACTIVITIES DIRECTOR SCOUTING nasopharynx this procedure are in the results section. MAGNESIUM LEVEL Routine 11/26/2022 Adenocarcinoma of Results for 1:07 PM ACTIVITIES DIRECTOR SCOUTING nasopharynx this procedure are in the results section. LACTATE DEHYDROGENASE Routine 11/26/2022 Adenocarcinoma of R esults for 1:07 PM ACTIVITIES DIRECTOR SCOUTING nasopharynx this procedure are in the results section. FREE THYROXINE Routine 11/26/2022 Adenocarcinoma of Results for 1:07 PM ACTIVITIES DIRECTOR SCOUTING nasopharynx this procedure are in the results section. COMPREHENSIVE METABOLIC Routine 11/26/2022 Adenocarcinoma of PANEL 1:07 PM ACTIVITIES DIRECTOR SCOUTING nasopharynx COMPLETE BLOOD COUNT W/ Routine 11/26/2022 Adenocarcinoma of DIFFERENTIAL 1:07 PM ACTIVITIES DIRECTOR SCOUTING nasopharynx NGS BLOOD CONTROL Routine 11/26/2022 Adenocarcinoma of Re sults for 1:07 PM ACTIVITIES DIRECTOR SCOUTING nasopharynx this procedure are in the results section. AP IHC HER2/ARCENIO MATERIAL Routine 11/26/2022 Adenocarcinoma o f REQUEST 12:43 PM ACTIVITIES DIRECTOR SCOUTING nasopharynx AP IHC PD-L1 MATERIAL Routine 11/26/2022 Adenocarcinoma of REQUEST 12:43 PM ACTIVITIES DIRECTOR SCOUTING nasopharynx ANA CRISTINA GRIFFIN PTEN MUTATION Routine 11/26/2022 Adenocarcinoma of Res ults for MATERIAL REQUEST 12:43 PM ACTIVITIES DIRECTOR SCOUTING nasopharynx this proced ure are in the results section. ANA CRISTINA GRIFFIN MTOR MATERIAL Routine 11/26/2022 Adenocarcinoma of Res ults for REQUEST 12:43 PM ACTIVITIES DIRECTOR SCOUTING nasopharynx this procedure are in the results section. ANA CRISTINA GRIFFIN ERBB2 MUTATION Routine 11/26/2022 Adenocarcinoma of Re sults for ANALAYSIS MATERIAL REQUEST 12:43 PM ACTIVITIES DIRECTOR SCOUTING nasopharynx t his procedure are in the results section. ANA CRISTINA GRIFFIN EGFR MUTATION Routine 11/26/2022 Adenocarcinoma of Res ults for MATERIAL REQUEST 12:43 PM ACTIVITIES DIRECTOR SCOUTING nasopharynx this proced ure are in the results section. ANA CRISTINA GRIFFIN ALK MUTATION Routine 11/26/2022 Adenocarcinoma of Resu lts for ANALAYSIS MATERIAL REQUEST 12:43 PM ACTIVITIES DIRECTOR SCOUTING nasopharynx t his procedure are in the results section. ANA CRISTINA GRIFFIN NTRK3 FUSION Routine 11/26/2022 Adenocarcinoma of Resu lts for ANALYSIS MATERIAL REQUEST 12:43 PM ACTIVITIES DIRECTOR SCOUTING nasopharynx th is procedure are in the results section. ANA CRISTINA GRIFFIN NTRK2 FUSION Routine 11/26/2022 Adenocarcinoma of Resu lts for ANALYSIS MATERIAL REQUEST 12:43 PM ACTIVITIES DIRECTOR SCOUTING nasopharynx th is procedure are in the results section. AP NTRK1 FUSION Routine 11/26/2022 Adenocarcinoma of Resu lts for ANALYSIS MATERIAL REQUEST 12:43 PM ACTIVITIES DIRECTOR SCOUTING nasopharynx th is procedure are in the results section. DIFFERENTIAL Routine 11/17/2022 Adenocarcinoma of Results fo r 12:11 PM ACTIVITIES DIRECTOR SCOUTING nasopharynx this procedure are in the results section. .CBC Routine 11/17/2022 Adenocarcinoma of Results fo r 12:11 PM ACTIVITIES DIRECTOR SCOUTING nasopharynx this procedure are in the results section. FRACTIONATED BILIRUBIN Routine 11/17/2022 Adenocarcinoma of Results for 12:11 PM ACTIVITIES DIRECTOR SCOUTING nasopharynx this procedure are in the results section. TOTAL PROTEIN Routine 11/17/2022 Adenocarcinoma of Results f or 12:11 PM ACTIVITIES DIRECTOR SCOUTING nasopharynx this procedure are in the results section. ASPARTATE AMINOTRANSFERASE Routine 11/17/2022 Adenocarcinoma of Results for 12:11 PM ACTIVITIES DIRECTOR SCOUTING nasopharynx this procedure are in the results section. ALANINE AMINOTRANSFERASE Routine 11/17/2022 Adenocarcinoma o f Results for 12:11 PM ACTIVITIES DIRECTOR SCOUTING nasopharynx this procedure are in the results section. ALKALINE PHOSPHATASE Routine 11/17/2022 Adenocarcinoma of Re sults for 12:11 PM ACTIVITIES DIRECTOR SCOUTING nasopharynx this procedure are in the results section. ALBUMIN LEVEL Routine 11/17/2022 Adenocarcinoma of Results f or 12:11 PM ACTIVITIES DIRECTOR SCOUTING nasopharynx this procedure are in the results section. CALCIUM LEVEL Routine 11/17/2022 Adenocarcinoma of Results f or 12:11 PM ACTIVITIES DIRECTOR SCOUTING nasopharynx this procedure are in the results section. .GLOMERULAR FILTRATION Routine 11/17/2022 Adenocarcinoma of Results for RATE 12:11 PM ACTIVITIES DIRECTOR SCOUTING nasopharynx this procedure are in the results section. SERUM CREATININE Routine 11/17/2022 Adenocarcinoma of Result s for 12:11 PM ACTIVITIES DIRECTOR SCOUTING nasopharynx this procedure are in the results section. ELECTROLYTE PANEL Routine 11/17/2022 Adenocarcinoma of Resul ts for 12:11 PM ACTIVITIES DIRECTOR SCOUTING nasopharynx this procedure are in the results section. BLOOD UREA NITROGEN Routine 11/17/2022 Adenocarcinoma of Res ults for 12:11 PM ACTIVITIES DIRECTOR SCOUTING nasopharynx this procedure are in the results section. GLUCOSE LEVEL Routine 11/17/2022 Adenocarcinoma of Results f or 12:11 PM ACTIVITIES DIRECTOR SCOUTING nasopharynx this procedure are in the results section. PROLACTIN Routine 11/17/2022 Adenocarcinoma of Results fo r 12:11 PM ACTIVITIES DIRECTOR SCOUTING nasopharynx this procedure are in the results section. INSULIN-LIKE GROWTH FACTOR Routine 11/17/2022 Adenocarcinoma of Results for 1 12:11 PM ACTIVITIES DIRECTOR SCOUTING nasopharynx this procedure are in the results section. TRIIODOTHYRONINE Routine 11/17/2022 Adenocarcinoma of Result s for 12:11 PM ACTIVITIES DIRECTOR SCOUTING nasopharynx this procedure are in the results section. FREE THYROXINE Routine 11/17/2022 Adenocarcinoma of Results for 12:11 PM ACTIVITIES DIRECTOR SCOUTING nasopharynx this procedure are in the results section. THYROID STIMULATING Routine 11/17/2022 Adenocarcinoma of Res ults for HORMONE 12:11 PM ACTIVITIES DIRECTOR SCOUTING nasopharynx this procedure are in the results section. LUTEINIZING HORMONE Routine 11/17/2022 Adenocarcinoma of Res ults for 12:11 PM ACTIVITIES DIRECTOR SCOUTING nasopharynx this procedure are in the results section. FOLLICLE STIMULATING Routine 11/17/2022 Adenocarcinoma of Re sults for HORMONE LEVEL 12:11 PM ACTIVITIES DIRECTOR SCOUTING nasopharynx this procedure are in the results section. TESTOSTERONE LEVEL Routine 11/17/2022 Adenocarcinoma of Resu lts for 12:11 PM ACTIVITIES DIRECTOR SCOUTING nasopharynx this procedure are in the results section. ESTRADIOL LEVEL Routine 11/17/2022 Adenocarcinoma of Results for 12:11 PM ACTIVITIES DIRECTOR SCOUTING nasopharynx this procedure are in the results section. ADRENOCORTICOTROPIC Routine 11/17/2022 Adenocarcinoma of Res ults for HORMONE 12:11 PM ACTIVITIES DIRECTOR SCOUTING nasopharynx this procedure are in the results section. CORTISOL, TOTAL Routine 11/17/2022 Adenocarcinoma of Results for 12:11 PM ACTIVITIES DIRECTOR SCOUTING nasopharynx this procedure are in the results section. PROTHROMBIN TIME Routine 11/17/2022 Adenocarcinoma of Result s for 12:11 PM ACTIVITIES DIRECTOR SCOUTING nasopharynx this procedure are in the results section. APTT Routine 11/17/2022 Adenocarcinoma of Results fo r 12:11 PM ACTIVITIES DIRECTOR SCOUTING nasopharynx this procedure are in the results section. COMPLETE BLOOD COUNT W/ Routine 11/17/2022 Adenocarcinoma of DIFFERENTIAL 12:11 PM ACTIVITIES DIRECTOR SCOUTING nasopharynx COMPREHENSIVE METABOLIC Routine 11/17/2022 Adenocarcinoma of PANEL 12:11 PM ACTIVITIES DIRECTOR SCOUTING nasopharynx HEPATITIS C VIRUS ANTIBODY Routine 11/17/2022 Adenocarcinoma of Results for 12:11 PM ACTIVITIES DIRECTOR SCOUTING nasopharynx this procedure are in the results section. PATHOLOGY OUTSIDE Routine 10/16/2022 Results fo r INTERPRETATION this procedur e are in the results section. after 09/03/2022 Results ACTH (06/17/2023 12:29 PM CDT)Only the most recent of3 resultswithin the time period is included. athologist Signature ACTH 23 7 - 63 pg/mL [facility] Comment: Results greater than 1826 pg/mL may not be reliable due to matrix effect with extended dilution as it exceeds the movement therapist's recommended limit. ACTH reference intervals are established for the morni ng hours from 7-10 am. Due to the circad katie rhythm of ACTH levels in plasma, the sample col lection time must be noted. Caution should be exercised when interpreting such values and done in conjunction with clinical context. Testing performed at [facility], [address] [place] [address] Specimen Anatomical Collection Method Collection Time Receive d Time (Source) Location / / Volume Laterality Blood 06/17/2023 12:29 06/17/2023 PM CDT 12:29 PM CDT Marily Garcia APRN LAB BLOOD ORDERABLES Performing Organization Address City/State/[place] [address], [facility] [address] Cortisol, Total (06/17/2023 12:29 PM CDT)Only the most recent of3 resultswithin the time period is included. [facility] Cortisol, Total 8.07 4.80 - [facility] 19.50 mcg/dL Comment: Cortisol reference intervals are [...] (4-8pm) (2.5 - 11.9) Testing performed at [facility], [address] [place] [id number] Specimen Anatomical Collection Method Collection Time Receive d Time (Source) Location / / Volume Laterality Blood 06/17/2023 12:29 06/17/2023 PM CDT 12:29 PM CDT Marily Garcia CLINICAL CARE LEADER LAB BLOOD ORDERABLES Performing Organization Address City/State/ZIP Code Phon e Number LINSEY JIMENEZ [facility] [place] [phone] LINSEY JIMENEZ [address] [facility], [facility] [address] MRI Orbits with and without Contrast (04/22/2023 [...] follow-up recommended to exclude tumor in this [facility] gi[facility]iana posttreatment MRI. No suspicious lymph nodes. Winter Luu MD IMG MRI ORDERABLES .Serum Creatinine (04/22/2023 12:28 PM CDT)Only the most recent of44 results within the time period is included. athologist Signature Creatinine 0.80 0.51 - 0.95 [facility] mg/dL Comment: Testing performed at [facility], [address] [place] [address], [place] [address] Specimen Anatomical Collection Method Collection Time Receive d Time (Source) Location / / Volume Laterality Blood 04/22/2023 12:28 04/22/2023 PM CDT 12:29 PM CDT Narrative [facility]OR - 04/22/2023 1:04 PM CDT Coordinate all on same day. Ok to schedu le 1-2 weeks following 04/14 to coordinate appts Winter Luu MD LAB BLOOD ORDERABLES Performing Organization Address City/State/[place] [address], [facility] [address] (ABNORMAL) .CBC (04/22/2023 12:28 PM CDT)Only the most recent of44 resultswithin the time period is included. athologist Signature WBC 6.5 4.0 - 11.0 [facility] K/uL Comment: All components of the CBC [facility] [facility], [address] [place] [address], [place] 77 3 RBC 4.39 4.00 - 5.50 M/uL [place] Comment: All components of the CBC perfo rmed at [facility], [address] [place] [address], [place] [address] Hgb 14.3 12.0 - 16.0 gm/dL [facility] Comment: As part of CBC or as an individ ual orderable testing performed at [facility], [address] [place] [address], [place] [address] Hct 43.7 37.0 - 47.0 % [place] Comment: As part of CBC testing performe d at [facility], [address] [place] [address], [place] [address] MCV 100 (H) 82 - 98 fL [place] Comment: As part of CBC testing performe d at [facility], [address] [place] [address] MCH 32.6 (H) 27.0 - 31.0 pg [place] Comment: As part of CBC testing performe d at [facility], [address] [place] [address] MCHC 32.7 31.0 - 36.0 gm/dL [place] Comment: As part of CBC testing performe d at [facility], [address] [place] [address] RDW-SD 45.6 35.1 - 46.3 fL [place] Comment: As part of CBC testing performe d at [facility], [address] [place] [address], [place] [address] RDW-CV 12.1 12.0 - 15.5 % [facility] Comment: As part of CBC testing performe d at [facility], [address] [place] [address], [place] [address] Platelet count 150 140 - 440 K/uL [facility] Comment: As part of CBC or an individual orderable testing performed at [facility], [address] [place] [address], [place] [address] MPV 9.6 4.0 - 10.4 fL [place] Comment: As part of CBC testing performe d at [facility], [address] [place] [address], [place] [address] Specimen Anatomical Collection Method Collection Time Receive d Time (Source) Location / / Volume Laterality Blood 04/22/2023 12:28 04/22/2023 PM CDT 12:29 PM CDT Narrative [facility] - 04/22/2023 12:33 PM CDT Coordinate all on same day. Ok to schedu le 1-2 weeks following 04/14 to coordinate appts Winter Luu MD LAB BLOOD ORDERABLES Performing Organization Address City/State/[place] [address], [place] [address] Glomerular Filtration Rate (04/22/2023 12:28 PM CDT)Only the most recent of44 resultswithin the time period is included. P athologist Signature eGFR 86 >=60 [place] mL/min/1.73 sq. m Comment: The eGFRcr is [...] fulfill criteria for CKD. [facility], [address] [place] [address] Specimen Anatomical Collection Method Collection Time Receive d Time (Source) Location / / Volume Laterality Blood 04/22/2023 12:28 04/22/2023 PM CDT 12:29 PM CDT [facility] 04/22/2023 1:04 PM CDT Coordinate all on same day. [facility]2 weeks following 04/14 to coordinate appts Winter Luu MD LAB BLOOD ORDERABLES Performing Organization Address City/State/[place] [address] [place] [address] [place] [address], [place] [address] (ABNORMAL) IGF-1 (04/22/2023 12:28 PM CDT)Only the most recent of2 resultswithin the time period is included. athologist Signature Insulin-Like 226 (H) 37 - 208 [facility] Growth Factor ng/mL [facility] IGF Z-score 2.33 -2.0 - 2.0 [facility] Comment: ADDITIONAL INFORMATIO N This test was developed and its performa nce characteristics determined by [facility] in a manner co nsistent with CLIA requirements. This test has not been sisi ared or approved by the U.S. Food and Drug Administration. Test Performed by: [place] [id number] Material Handler: Yonathan Guzman M.D. Ph. D.; [facility]# [id number] Specimen Anatomical Collection Method Collection Time Receive d Time (Source) Location / / Volume Laterality Blood 04/22/2023 12:28 04/22/2023 PM CDT 12:29 PM CDT Narrative [facility] - 3 3:42 PM CDT Coordinate all on same day. Ok to schedule 1-2 weeks following 04/14 to coordinate appts 8am Fasting Winter Luu MD LAB BLOOD ORDERABLES Performing Organization Address City/[facility] Phon e Number [facility] Unless otherwise noted, [address] all lab tests performed by: Division of Pathology and Laboratory Medicine [address] Prolactin (04/22/2023 12:28 PM CDT)Only the most recent of2 resultswithin the time period is included. athologist Signature Prolactin 10.9 4.8 - 23.3 [facility] ng/mL [facility] Comment: Results greater than 4700.0 ng/ mL may not be reliable due to matrix effect with extended dilution as it exceeds the movement therapist s recommended limit. Caution should be e xercised when interpreting such values and done in conjunction with clinical contex t. Specimen Anatomical Collection Method Collection Time Receive d Time (Source) Location / / Volume Laterality Blood 04/22/2023 12:28 04/22/2023 8:43 PM CDT PM CDT Narrative [facility] - 3 9:07 PM CDT Coordinate all on same day. Ok to schedule 1-2 weeks following 04/14 to coordinate appts 8am Fasting Winter Luu MD LAB BLOOD ORDERABLES Performing Organization Address City/[facility] Phon e Number [facility] Unless otherwise noted, [address] all lab tests performed by: Division of Pathology and Laboratory Medicine [address] Estradiol (Women) (04/22/2023 12:28 PM CDT)Only the most recent of2 results within the time period is included. athologist Signature Estradiol <11 pg/mL [facility] Comment: Reference Ranges: Adult Females: Follicular Phase [...] 04/22/2023 8:43 PM CDT PM CDT Narrative [facility] - 9:07 PM CDT Coordinate all on same day. Ok to schedule 1-2 weeks following 04/14 to coordinate appts 8am Fasting Winter Luu MD LAB BLOOD ORDERABLES Performing Organization Address City/State/ZIP Code Phon e Number [facility] Unless otherwise noted, [address] all lab tests performed by: Division of Pathology and Laboratory Medicine [address] (ABNORMAL) Differential (04/22/2023 12:28 PM CDT)Only the most recent of44 resultswithin the time period is included. athologist Signature Neutrophil % 86.1 (H) 42.0 - [place] 66.0 % Comment: All components of the Different ial performed at [facility], [address] [place] [address] Lymphocyte % 10.9 (L) 24.0 - 44.0 % [place] Comment: As part of the Differential hailey ting performed at [facility], [address] [place] [address] Monocyte % 2.3 2.0 - 7.0 % [place] Comment: As part of the Differential hailey ting performed at [facility], [address] [place] [address] Eosinophil % 0.2 (L) 1.0 - 4.0 % [place] Comment: As part of the Differential hailey ting performed at [facility], [address] [place], [place] [id number] Basophil % 0.2 0.0 - 1.0 % [place] Comment: As part of the Differential hailey ting performed at [facility], [address] [place] [address] IGRE % 0.3 0.0 - 0.4 % [place] Comment: IGRE % count includes Metamyelocytes, My elocytes, and Promyelocytes. As part of the Differential testing perf ormed at [facility], [address] [place] [address] Neutrophil Abs 5.62 1.70 - 7.30 K/uL [facility] ITY Comment: As part of the Differential hailey ting performed at [facility], [address] [place] [address] Lymphocyte Abs 0.71 (L) 1.00 - 4.80 K/uL [facility] ITY Comment: As part of the Differential hailey ting performed at [facility], [address] [place] [address] Monocyte Abs 0.15 0.08 - 0.70 K/uL [facility] Comment: As part of the Differential hailey ting performed at [facility], [address] [place] [address] Eosinophil Abs 0.01 (L) 0.04 - 0.40 K/uL [facility] ITY Comment: As part of the Differential hailey ting performed at [facility], [address] [place] [address] Basophil Abs 0.01 0.00 - 0.10 K/uL [facility] Comment: As part of the Differential hailey ting performed at [facility], [address] [place] [address] IG Abs 0.02 0.00 - 0.04 K/uL [place] Comment: As part of the Differential hailey ting performed at [facility], [address] [place] [address] Specimen Anatomical Collection Method Collection Time Receive d Time (Source) Location / / Volume Laterality Blood 04/22/2023 12:28 04/22/2023 PM CDT 12:29 PM CDT [facility] - 04/22/2023 12:33 PM CDT Coordinate all on same day. Ok to schedu le 1-2 weeks following 04/14 to coordinate appts Winter Luu MD LAB BLOOD ORDERABLES Performing Organization Address City/State/ZIP Code Phon e Number [facility] [place] [address], [facility] [address] BUN (04/22/2023 12:28 PM CDT)Only the most recent of44 resultswithin the time period is included. P athologist Signature BUN 12 6 - 23 mg/dL [place] Comment: [facility], [address] [place] [address] Specimen Anatomical Collection Method Collection Time Receive d Time (Source) Location / / Volume Laterality Blood 04/22/2023 12:28 04/22/2023 PM CDT 12:29 PM CDT [facility] - 04/22/2023 1:04 PM CDT Coordinate all on same day. Ok to schedu le 1-2 weeks following 04/14 to coordinate appts Winter Luu MD LAB BLOOD ORDERABLES Performing Organization Address City/State/[place] [address], [facility] [address] Total T3 (04/22/2023 12:28 PM CDT)Only the most recent of2 resultswithin the time period is included. P athologist Signature T3 Total 117 80 - 200 [place] ng/dL Comment: Performed at [facility], [address] [place] [address] Specimen Anatomical Collection Method Collection Time Receive d Time (Source) Location / / Volume Laterality Blood 04/22/2023 12:28 04/22/2023 PM CDT 12:29 PM CDT [facility] - 04/22/2023 1:04 PM CDT Coordinate all on same day. Ok to schedule 1-2 weeks following 04/14 to coordinate appts 8am Fasting Winter Luu MD LAB BLOOD ORDERABLES Performing Organization Address City/[facility]/[place] [address], [facility] [address] TSH (04/22/2023 12:28 PM CDT)Only the most recent of3 resultswithin the time period is included. athologist Signature TSH 1.06 0.27 - 4.20 [place] mcunit/mL Comment: Testing performed at [facility], [address] [place] [address] Specimen Anatomical Collection Method Collection Time Receive d Time (Source) Location / / Volume Laterality Blood 04/22/2023 12:28 04/22/2023 PM CDT 12:29 PM CDT [facility] - 04/22/2023 1:04 PM CDT Coordinate all on same day. Ok to schedule 1-2 weeks following 04/14 to coordinate appts 8am Fasting Winter Luu MD LAB BLOOD ORDERABLES Performing Organization Address City/[facility] [place] [address] [place] [id number] Free T4 (04/22/2023 12:28 PM CDT)Only the most recent of3 resultswithin the time period is included. athologist Signature T4 Free 1.21 0.93 - 1.70 [place] ng/dL Comment: Testing performed at [facility], [address] [place] [address] Specimen Anatomical Collection Method Collection Time Receive d Time (Source) Location / / Volume Laterality Blood 04/22/2023 12:28 04/22/2023 PM CDT 12:29 PM CDT Narrative [facility] - 04/22/2023 1:04 PM CDT Coordinate all on same day. Ok to schedule 1-2 weeks following 04/14 to coordinate appts 8am Fasting Winter Luu MD LAB BLOOD ORDERABLES Performing Organization Address City/[facility]/[place] [address] [place] [address] [facility], [place] [address] LH (04/22/2023 12:28 PM CDT)Only the most recent of2 resultswithin the time period is included. athologist Signature LH 8.7 mIU/mL [facility] Comment: Female Luteinizing Hormone Reference Ran ges: LOW HIGH Follicular 2.4 12.6 Ovulation 14.0 95.6 Luteal 1.0 11.4 Postmenopause 7.7 58.5 Specimen Anatomical Collection Method Collection Time Receive d Time (Source) Location / / Volume Laterality Blood 04/22/2023 12:28 04/22/2023 8:43 PM CDT PM CDT Narrative [facility] - 9:07 PM CDT Coordinate all on same day. Ok to schedule 1-2 weeks following 04/14 to coordinate appts 8am Fasting Winter Luu MD LAB BLOOD ORDERABLES Performing Organization Address City/[facility] Phon e Number [facility] Unless otherwise noted, [address] all lab tests performed by: Division of Pathology and Laboratory Medicine [address] FSH (04/22/2023 12:28 PM CDT)Only the most recent of2 resultswithin the time period is included. athologist Signature FSH 30.1 mIU/mL [facility] Comment: Female Follicle Stimulating Hormone Refe rence Ranges: L OW HIGH Follicular 3.5 12.5 Ovulation 4.7 21.5 Luteal 1.7 7.7 Postmenopause 25.8 134.8 Specimen Anatomical Collection Method Collection Time Receive d Time (Source) Location / / Volume Laterality Blood 04/22/2023 12:28 04/22/2023 8:43 PM CDT PM CDT Narrative [facility] - 9:07 PM CDT Coordinate all on same day. Ok to schedule 1-2 weeks following 04/14 to coordinate appts 8am Fasting Winter Luu MD LAB BLOOD ORDERABLES Performing Organization Address City/State/[facility] Phon e Number [facility] Unless otherwise noted, [address] all lab tests performed by: Division of Pathology and Laboratory Medicine [address] (ABNORMAL) Electrolyte Panel (04/22/2023 12:28 PM CDT)Only the most recent of45 resultswithin the time period is included. athologist Signature Sodium Lvl 135 (L) 136 - 145 [place] mEq/L Comment: Testing performed at [facility], [address] [place] [address] Potassium Lvl 4.7 3.5 - 5.1 mEq/L [facility] Y Comment: Testing performed at [facility], [address] [place] [address] Chloride 96 (L) 98 - 107 mEq/L [place] Comment: Testing performed at [facility], [address] [place] [address] CO2 21 (L) 22 - 29 mEq/L [place] Comment: Testing performed at [facility], [address] [place] [address] Anion Gap 18 (H) 4 - 14 mEq/L [place] Comment: Testing performed at [facility], [address] [place] [address] Specimen Anatomical Collection Method Collection Time Receive d Time (Source) Location / / Volume Laterality Blood 04/22/2023 12:28 04/22/2023 PM CDT 12:29 PM CDT Narrative [facility] - 04/22/2023 1:04 PM CDT Coordinate all on same day. Ok to schedu le 1-2 weeks following 04/14 to coordinate appts Winter Luu MD LAB BLOOD ORDERABLES Performing Organization Address City/State/ZIP Code Phon e Number [facility] [place] [address], [place] [address] Fractionated Bilirubin (03/11/2023 11:15 AM CDT)Only the most recent of24 resultswithin the time period is included. athologist Signature Bili Total <0.3 <=1.2 mg/dL [place] Comment: Direct and indirect bilirubin will not b e reported when Total bilirubin result is <0.3 mg/dL Indocyanine Green (ICG) may cause falsel y elevated bilirubin results. Total and direct bilirubin must not be measured from samples containing indocyanine green. False elevation of total bilirubin can b e seen in patients with IgG concentrations above 28 g/L. Testing performed at [facility], [address] [place] [address] Specimen Anatomical Collection Method Collection Time Receive d Time (Source) Location / / Volume Laterality Blood 03/11/2023 11:15 03/11/2023 AM CDT 11:16 AM CDT [facility] - 03/11/2023 11:40 AM CDT Follow up at 1120, lab prior and infusio n after Lorena Hdez APRN LAB BLOOD ORDERABLES Performing Organization Address City/[facility]/ZIP Code Phon e Number [place], [place] [address] [place] [address], [place] [address] (ABNORMAL) ALT (03/11/2023 11:15 AM CDT)Only the most recent of24 resultswithin the time period is included. P athologist Signature ALT 40 (H) <=33 U/L [place] Comment: Testing performed at [facility], [address] [place] [address] Specimen Anatomical Collection Method Collection Time Receive d Time (Source) Location / / Volume Laterality Blood 03/11/2023 11:15 03/11/2023 AM CDT 11:16 AM CDT [facility] - 03/11/2023 11:40 AM CDT Follow up at 1120, lab prior and infusio n after Lorena Hdez APRN LAB BLOOD ORDERABLES Performing Organization Address City/[facility]/ZIP Code Phon e Number [address], [facility] [address] Aspartate Aminotransferase (03/11/2023 11:15 AM CDT)Only the most recent of24 resultswithin the time period is included. athologist Signature AST 26 <=32 U/L [place] Comment: Testing performed at [facility], [address] [place] [address] Specimen Anatomical Collection Method Collection Time Receive d Time (Source) Location / / Volume Laterality Blood 03/11/2023 11:15 03/11/2023 AM CDT 11:16 AM CDT [facility] - 03/11/2023 11:40 AM CDT Follow up at 1120, lab prior and infusio n after Lorena Hdez APRN LAB BLOOD ORDERABLES Performing Organization Address City/[facility] Phon e Number [place], [place] [id number] [place] [address], [facility] [address] Total Protein (03/11/2023 11:15 AM CDT)Only the most recent of24 resultswithin the time period is included. P athologist Signature Total Protein 7.0 6.4 - 8.3 [place] g/dL Comment: Testing performed at [facility], [address] [place] [address] Specimen Anatomical Collection Method Collection Time Receive d Time (Source) Location / / Volume Laterality Blood 03/11/2023 11:15 03/11/2023 AM CDT 11:16 AM CDT [facility] - 03/11/2023 11:40 AM CDT Follow up at 1120, lab prior and infusio n after Lorena Hdez APRN LAB BLOOD ORDERABLES Performing Organization Address City/[facility]/[place] [address], [facility] [address] (ABNORMAL) Alkaline Phosphatase (03/11/2023 11:15 AM CDT)Only the most recent of 24 resultswithin the time period is included. P athologist Signature Alk Phos 107 (H) 35 - 104 [place] U/L Comment: Testing performed at [facility], [address] [place] [address] Specimen Anatomical Collection Method Collection Time Receive d Time (Source) Location / / Volume Laterality Blood 03/11/2023 11:15 03/11/2023 AM CDT 11:16 AM CDT Narrative [place] - 03/11/2023 11:40 AM CDT Follow up at 1120, lab prior and infusio n after Lorena Garza Lemuel ESCALANTE LAB BLOOD ORDERABLES Performing Organization Address City/[facility]/ZIP Code Phon e Number [facility] [place] [address] [place] [address] (ABNORMAL) Magnesium Level (03/11/2023 11:15 AM CDT)Only the most recent of42 resultswithin the time period is included. athologist Signature Magnesium 1.4 (L) 1.6 - 2.6 [place] mg/dL Comment: Testing performed at [facility], [address] [place] [address], [place] [address] Specimen Anatomical Collection Method Collection Time Receive d Time (Source) Location / / Volume Laterality Blood 03/11/2023 11:15 03/11/2023 AM CDT 11:16 AM CDT [facility] - 03/11/2023 11:40 AM CDT Follow up at 1120, lab prior and infusio n after Lorena Kayla Hdez APRN LAB BLOOD ORDERABLES Performing Organization Address City/[facility]/ZIP Code Phon e Number [facility] [place] [address], [facility] [address] (ABNORMAL) Glucose Level (03/11/2023 11:15 AM CDT)Only the most recent of43 resultswithin the time period is included. P athologist Signature Glucose Level 324 (H) 70 - 99 [place] mg/dL Comment: Effective 05/27/16, the glucose reference intervals have been updated based on [place] [employer] guidelines (Standards of Medical Care in Diabetes 2016. Diabetes Care 2016; 39: S13-S22). Fasting blood glucose: Normal: 70-99 mg/dL Impaired fasting glucose (increased risk for diabetes or pre-diabetes): 100- 125 mg/dL Diabetes mellitus: >/=126 mg/dL Random blood glucose: Normal: 70-199 mg/dL Note: Random glucose >100 mg/dL is assoc iated with increased risk for diabetes Testing performed at [facility], [address] [place] [address] Specimen Anatomical Collection Method Collection Time Receive d Time (Source) Location / / Volume Laterality Blood 03/11/2023 11:15 03/11/2023 AM CDT 11:16 AM CDT Narrative [place] - 03/11/2023 11:40 AM CDT Follow up at 1120, lab prior and infusio n after Lorena Hdez APRN LAB BLOOD ORDERABLES Performing Organization Address City/[facility] Phon e Number [place], [place] [address] [place] [address], [facility] [address] Calcium Level (03/11/2023 11:15 AM CDT)Only the most recent of43 resultswithin the time period is included. athologist Signature Calcium Lvl 9.3 8.4 - 10.2 [place] mg/dL Comment: Testing performed at [facility], [address] [place] [address] Specimen Anatomical Collection Method Collection Time Receive d Time (Source) Location / / Volume Laterality Blood 03/11/2023 11:15 03/11/2023 AM CDT 11:16 AM CDT Narrative [place] - 03/11/2023 11:40 AM CDT Follow up at 1120, lab prior and infusio n after Lorena Hdez APRN LAB BLOOD ORDERABLES Performing Organization Address City/[facility] [place] [address], [facility] [address] Albumin Level (03/11/2023 11:15 AM CDT)Only the most recent of24 resultswithin the time period is included. athologist Signature Albumin Lvl 3.9 3.5 - 5.2 [place] gm/dL Comment: Testing performed at [facility], [address] [place] [address] Specimen Anatomical Collection Method Collection Time Receive d Time (Source) Location / / Volume Laterality Blood 03/11/2023 11:15 03/11/2023 AM CDT 11:16 AM CDT Narrative [place] - 03/11/2023 11:40 AM CDT Follow up at 1120, lab prior and infusio n after Lorena Garza Lemuel GODFREYN LAB BLOOD ORDERABLES Performing Organization Address City/[facility]/ZIP Code Phon e Number [facility] [place] [address] [place] [address] [facility], [facility] [address] (ABNORMAL) POC Glucose Screen (02/16/2023 12:02 PM [...] Sample Type Capillary POC TELCOR Performing Lab [facility] POC TELCO R Comment: [facility], [address] [place] [address], [place] [address]; Lab Direct or: Chula Jacob MD; Waived Point of Care Testing - Gabrielle Mueller MD Specimen Anatomical Collection Method Collection Time Receive d Time (Source) Location / / Volume Laterality Blood 02/16/2023 12:02 02/16/2023 PM CDT 12:02 PM CDT Ashleigh Rangel MD POCT ORDERABLES - DEVIC E Performing Organization Address City/State/ZIP Code Phon e Number POC [facility] Unless otherwise noted, [place] [address] lab tests performed by: Division of Pathology and Laboratory Medicine [address] [place] [address] (ABNORMAL) Anti-Xa Level (02/16/2023 11:13 AM CDT) athologist Signature Anti-Xa Level 1.45 (H) 0.00 - [facility] 0.10 KULWANT unit/mL [facility] Comment: Anti-Xa Level (Heparin assay for [...] Ref: Chest 2008; 133;[id number] Hep Type Enoxaparin [facility] CENTER Specimen Anatomical Collection Method Collection Time Receive d Time (Source) Location / / Volume Laterality Blood 02/16/2023 11:13 02/16/2023 AM CDT 11:21 AM CDT Narrative [facility] - 3 1:11 PM CDT Nurse please coordinate with lab to draw n Anti-Xa level (low molecular weight heparin level) 4 hours after 02/16/23 morning kourtney xaparin dose is given. Angeli Wang MD LAB BLOOD ORDERABLES Performing Organization Address City/[facility] Phon e Number [facility] CANCER Unless otherwise noted, [place] [address] [place] all lab tests performed by: Division of Pathology and Laboratory Medicine [address] Phosphorus Level (02/16/2023 6:15 AM CDT)Only the most recent of40 resultswithin the time period is included. athologist Signature Phosphorus 4.3 2.5 - 4.5 [facility] mg/dL [facility] Specimen Anatomical Collection Method Collection Time Receive d Time (Source) Location / / Volume Laterality Blood 02/16/2023 6:15 AM 3 6:59 CDT AM CDT Christian Flores APRN,DEEPTI LAB BLOOD ORDERABLES Performing Organization Address City/State/ZIP Code Phon e Number [facility] CANCER Unless otherwise noted, [address] all lab tests performed by: Division of Pathology and Laboratory Medicine [address] [place] [address] General Laboratory Add-On Test (02/12/2023 9:33 AM CDT)Only the most recent of4 resultswithin the time period is included. Patholo gist Method Time Signature Ordered Test Added [facility] Test Needed procalcitonin [facility] Specimen Anatomical Collection Method Collection Time Receive d Time (Source) Location / / Volume Laterality Existing 02/12/2023 9:33 AM 3 9:34 CDT AM CDT Kimberli GALE LAB BLOOD ORDERABLES Performing Organization Address City/[facility] Phon e Number [facility] Unless otherwise noted, [address] all lab tests performed by: Division of Pathology and Laboratory Medicine [facility]5 [facility] (ABNORMAL) Procalcitonin (02/12/2023 5:34 AM CDT)Only the most recent of4 resultswithin the time period is included. P athologist Signature Procalcitonin 0.38 (H) <=0.08 [facility] ng[facility] Comment: Procalcitonin > 2.00 ng/mL: Procalcit onin [...] with extended dilution as it exceeds the movement therapist's recommended limit. Caution should be exercised when interpreting such values and done in conjunction with clinical context. Specimen Anatomical Collection Method Collection Time Receive d Time (Source) Location / / Volume Laterality Blood 02/12/2023 5:34 AM 3 6:18 CDT AM CDT Keithpatelizabeth Flores APRN,AGACNP LAB BLOOD ORDERABLES Performing Organization Address City/State/ZIP Code Phon e Number [facility] Unless otherwise noted, [place], [place] [id number] [place] [address] all lab tests performed by: Division of Pathology and Laboratory Medicine [address] [facility] [address] Maxillofacial Area with Contrast (02/11/2023 [...] athologist Signature CK 125 26 - 192 [facility] U/L CANCER CENTER Specimen Anatomical Collection Method Collection Time Receive d Time (Source) Location / / Volume Laterality Blood 02/09/2023 5:37 AM 6:08 CDT AM CDT Shelby GALE LAB BLOOD ORDERABLES Performing Organization Address City/State/ZIP Code Phon e Number [facility] Unless otherwise noted, [place] [address] [place] all lab tests performed by: Division of Pathology and Laboratory Medicine [address] [place] [address] US Arm Venous Doppler Bilateral (02/08/2023 6:28 [...] PM CDT Examination: US ARM VENOUS DOPPLER [facility], 02/08/2023 6:28 PM Clinical History: Adenoid cystic [...] - 02/08/2023 Examination: US ARM VENOUS DOPPLER [facility], 02/08/2023 6:28 PM Clinical History: Adenoid cystic [...] was not perform ed in this study. ([employer] Study). Diastology: Indeterminate. Right Ventricle: The right [...] 19 0.6 ml EF(MOD-A2C): 65.3 % ESV(MOD-bp): 71 .5 [...] Med Peak E' Alejandra: 6.3 cm/sec Lat Pea k E' Alejandra: 10.9 cm/sec TR max alejandra: 242.7 cm/sec RAP systole : 3.0 mmHg TR max P.6 mmHg RVSP(TR): 26.6 mmHg NGOZI Index (I,D): 0.80 NGOZI Index (V, D): 0.74 Dimensionless Index: 0.58 E/e' (avg): 11.6 [...] purpose. For additional information please refer to http://education.[employer]/fa q/DWD868 (This link is being provided for informa tional/ educational purposes only.) The performance of this assay has not be en clinically validated in patients less than 2 years old. Lab test performed by: Lab Mnemonic: [facility] [employer] [address] [id number] JOSE ELIAS MELÉNDEZ MD Specimen Anatomical Collection [...] Signature HCVAb. Non Reactive Non Reactive [facility] [place] Comment: Antibody detection in the immunocompromi sed [...] MD LAB BLOOD ORDERABLES Performing Organization Address City/[facility]/ZIP Code Phon e Number [facility] CANCER Unless otherwise noted, [address] all lab tests performed by: Division of Pathology and Laboratory Medicine [address] [place] [address] Hepatitis B Total Ig Core Ab (SCREENING) (anti-HBc total Ig; HBcAb total Ig) (02/07/2023 6:52 AM CDT) [facility] Method Time Signature HBcAb. Non Reactive Non Reactive [facility] Specimen Anatomical Collection Method Collection Time Receive d Time (Source) Location / / Volume Laterality Blood 02/07/2023 6:52 AM 3 8:32 CDT AM CDT Thao Soria MD LAB BLOOD ORDERABLES Performing Organization Address City/[facility]/ZIP [facility] Phon e Number [facility] Unless otherwise noted, [address] all lab tests performed by: Division of Pathology and Laboratory Medicine [address] [place] [address] Hepatitis B Surface Ag (02/07/2023 6:52 AM CDT) [facility] Method Time Signature HBsAg. Non Reactive Non Reactive [facility] Specimen Anatomical Collection Method Collection Time Receive d Time (Source) Location / / Volume Laterality Blood 02/07/2023 6:52 AM 3 8:32 CDT AM CDT Thao Soria MD LAB BLOOD ORDERABLES Performing Organization Address City/[facility]/ZIP Code Phon e Number [facility] Unless otherwise noted, [address] all lab tests performed by: Division of Pathology and Laboratory Medicine [address] [place] [address] Blood Culture (02/07/2023 6:52 AM CDT)Only the most recent of6 resultswithin the time period is included. athologist Signature Final Report No growth [facility] Specimen Anatomical Collection Method Collection Time Receive d Time (Source) Location / / Volume Laterality Blood 02/07/2023 6:52 AM 3 7:43 (Venipuncture-Ri CDT AM CDT ght) Comment: arm Tim Nguyen MD MICROBIOLOGY - GENERAL ORDER GODWIN Performing Organization Address City/State/ZIP Code Phon e Number [facility] Unless otherwise noted, [address] all lab tests performed by: Division of Pathology and Laboratory Medicine [address] Hodges Transferrin with TIBC (02/07/2023 6:52 AM CDT) athologist Signature Transferrin 205 200 - 360 [facility] mg/dL [facility] TIBC 287 250 - 450 [facility] mcgdL [facility] Specimen Anatomical Collection Method Collection Time Receive d Time (Source) Location / / Volume Laterality Blood 02/07/2023 6:52 AM 3 7:07 CDT AM CDT Thao Soria MD LAB BLOOD ORDERABLES Performing Organization Address City/[facility]/ZIP Code Phon e Number [facility] CANCER Unless otherwise noted, [address] all lab tests performed by: Division of Pathology and Laboratory Medicine [facility] Michelle [address]ges Iron Level (02/07/2023 6:52 AM CDT) athologist Signature Iron 51 37 - 145 [facility] Specimen Anatomical Collection Method Collection Time Receive d Time (Source) Location / / Volume Laterality Blood 02/07/2023 6:52 AM 3 7:07 CDT AM CDT Thao Soria MD LAB BLOOD ORDERABLES Performing Organization Address City/[facility]/ZIP [facility] Phon e Number [facility] CANC[facility] Unless otherwise noted, [address] all lab tests performed by: Division of Pathology and Laboratory Medicine [facility] [address] (ABNORMAL) Hemoglobin A1c (02/07/2023 6:52 AM CDT)Only the most recent of2 resultswithin the time period is included. athologist Signature A1C 10.2 (H) 4.3 - 5.6 % [facility] Comment: HbA1c values >=6.5% are diagnostic of [...] Organization Address City/State/ZIP Code Phon e Number [facility] Unless otherwise noted, [address] all lab tests performed by: Division of Pathology and Laboratory Medicine [address] (ABNORMAL) Ferritin Level (02/07/2023 6:52 AM CDT) athologist Signature Ferritin Lvl 320 (H) 13 - 150 [facility] ng/mL [facility] CENTER Specimen Anatomical Collection Method Collection Time Receive d Time (Source) Location / / Volume Laterality Blood 02/07/2023 6:52 AM 3 7:07 CDT AM CDT Thao Soria MD LAB BLOOD ORDERABLES Performing Organization Address City/[facility] Phon e Number [facility] Unless otherwise noted, [address] all lab tests performed by: Division of Pathology and Laboratory Medicine [address] (ABNORMAL) Lipid Panel (02/07/2023 6:52 AM CDT) athologist Signature Chol 137 <=199 mg/dL [facility] Comment: ATP III Classification of Total Choleste rol Primary Target of Therapy (in mg/dL): <200 Desirable 200-239 Borderline high >=240 High Trig 184 (H) <=149 mg/dL [facility] Comment: ATP III Classification of Serum Triglyce rides Primary Target of Therapy (in mg/dL): <150 Normal 150-199 Borderline high 200-499 High >=500 Very high Non-fasting triglycerides >200 mg/dL may be followed up with a fasting Lipid Panel. Calculated LDL-C may be falsely decreased when non-fasting triglycerides >200 mg/dL. HDL 27 (L) >=40 mg/dL [facility] CENTER LDL 73 <=100 mg/dL [facility] Comment: ATP III Classification of LDL Cholestero l Primary Target of Therapy (in mg/dL): <100 Optimal 100-129 Near optimal/above optimal 130-159 Borderline high 160-189 High >=190 Very high VLDL 37 mg/dL [facility] Specimen Anatomical Collection Method Collection Time Receive d Time (Source) Location / / Volume Laterality Blood 02/07/2023 6:52 AM 3 7:07 CDT AM CDT Thao Soria MD LAB BLOOD ORDERABLES Performing Organization Address City/[facility]/ZIP Code Phon e Number [facility] CANCER Unless otherwise noted, [address] all lab tests performed by: Division of Pathology and Laboratory Medicine [address] [place] [address] Snyder Clostridium Difficile DNA Path Review (02/07/2023 5:18 AM CDT) Component Value Ref Test Analysis Performed At [facility] gist Range Method Time Signature C diff DNA NV Reviewed and Electronically signed by Pathologist: [place] MD PATRICIA CHAVEZ MD #[id number] [facility] Comment: C. [...] for repeat testing. PATRICIA CHAVEZ MD - [id number] Dictated by: PATRICIA CHAVEZ MD - [id number] Dictated Date/Time: 02.07.2023 16:35 PM CDT Transcribed Date/Time: 02.07.2023 16:35 PM CDT Electronically Signed By: PATRICIA OTTO MD - [id number] on 02.07.2023 16:35 PM Specimen Anatomical Collection Method Collection Time Receive d Time (Source) Location / / Volume Laterality Stool 02/07/2023 5:18 AM 3 8:07 CDT AM CDT Thao Soria MD MICROBIOLOGY - GENERAL ORDER GODWIN Performing Organization Address City/[facility]/ZIP Code Phon e Number [facility] CANCER Unless otherwise noted, [address] all lab tests performed by: Division of Pathology and Laboratory Medicine [address] [place] [address] Clostridium Difficile DNA Assay (02/07/2023 5:18 AM CDT) [facility] gist Method Time [facility] C difficile DNA Negative Negative CA [facility] C difficle Toxin Test Not Negative [facility] EIA Performed [facility] C difficile C. difficile [facility] Interpretation DNA [place] detection CANCER was negative CENTER making C. difficile infection highly unlikely in this patient. EIA not performed. Specimen Anatomical Collection Method Collection Time Receive d Time (Source) Location / / Volume Laterality Stool 02/07/2023 5:18 AM 6:14 CDT AM CDT Son Amelia Soria MD MICROBIOLOGY - GENERAL ORDER GODWIN Performing Organization Address City/State/ZIP Code Phon e Number [facility] CANCER Unless otherwise noted, [address] all lab tests performed by: Division of Pathology and Laboratory Medicine [address] [place] [address] Gastrointestinal Multiplex Panel (02/07/2023 5:16 AM CDT) Component Value Ref Range Test Analysis [facility] Method Time At [facility] Campylobacter Not Detected Not [facility] Detected [facility] C difficile DNA (GI Refer to [facility] Multi Panel) separate C. [place] difficile DNA CANCER Assay for CENTER results Plesiomonas Not Detected Not [facility] shigelloides Detected [facility] Salmonella Not Detected Not [facility] Detected [facility] Vibrio Not Detected Not [facility] Detected [facility] Vibrio cholerae Not Detected Not [facility] Detected [facility] Yersinia Not Detected Not [facility] enterocolitica Detected [facility] Enteroaggregative E. Not Detected Not [facility] coli (EAEC) Detected [facility] Enteropathogenic E. Not Detected Not [facility] coli (EPEC) Detected [facility] Enterotoxigenic E. Not Detected Not [facility] coli (ETEC) Detected [facility] Shiga-like Not Detected Not [facility] toxin-producing E. Detected [place] col (STEC) [facility] CENTER E. coli O157 Not Not [facility] Applicable Detected [facility] Shigella/Enteroinvas Not Detected Not [facility] rosales E. coli (EIEC) Detected [facility] Cryptosporidium Not Detected Not [facility] Detected [facility] Cyclospora Not Detected Not [facility] cayetanensis Detected [facility] Entamoeba Not Detected Not [facility] histolytica Detected [facility] Giardia lamblia Not Detected Not CARLA GRIFFIN Detected [facility] Adenovirus F 40/41 Not Detected Not CARLA GRIFFIN Detected [facility] Astrovirus Not Detected Not CARLA GRIFFIN Detected [facility] Norovirus GI/GII Not Detected Not CARLA GRIFFIN Detected [facility] Rotavirus A Not Detected Not CARLA GRIFFIN Detected [facility] Sapovirus (I, II, IV Not Detected Not CARLA MD and V) Detected [facility] Specimen Anatomical Collection Method Collection Time Receive d Time (Source) Location / / Volume Laterality Stool 02/07/2023 5:16 AM 6:13 CDT AM CDT Son Amelia Estella GRIFFIN MICROBIOLOGY - GENERAL ORDER GODWIN Performing Organization Address City/State/ZIP Code Phon e Number [place] [facility] Unless otherwise noted, [address] all lab tests performed by: Division of Pathology and Laboratory Medicine [address] [place] [address] Gastrointestinal Multiplex Panel Path Review (02/07/2023 5:16 AM CDT) Patholo gist Method Time Signature GIMP [place] Reviewed and Electronically signed by Pathologist: CARLA CHAVEZ MD #[id number] [facility] Comment: Performed by real-time PCR methodology. [...] correlation is recommended. PATRICIA CHAVEZ MD - [id number] Dictated by: PATRICIA CHAVEZ MD - [id number] Dictated Date/Time: 02.07.2023 16:40 PM CDT Transcribed Date/Time: 02.07.2023 16:40 PM CDT Electronically Signed By: PATRICIA OTTO MD - [id number] on 02.07.2023 16:40 PM Specimen Anatomical Collection Method Collection Time Receive d Time (Source) Location / / Volume Laterality Stool 02/07/2023 5:16 AM 3 6:13 CDT AM CDT Thao Soria MD LAB BLOOD ORDERABLES Performing Organization Address City/[facility]/ZIP Code Phon e Number [facility] CANCER Unless otherwise noted, [address] all lab tests performed by: Division of Pathology and Laboratory Medicine [address] EKG, 12-Lead (Portable) (02/07/2023)Only the most recent of2 resultswithin the time period is included. Specimen (Source) Anatomical Location Collection Method / Collectio n Time Received Time / Laterality Volume Narrative This result has an attachment that is no t available. Romana Guy MD ECG ORDERABLES Performing Organization Address City/[facility]/ZIP Code Phon e Number DARI IECG NT-Pro BNP (In-House) (02/06/2023 3:05 AM CDT)Only the most recent of2 results within the time period is included. athologist Signature NT ProBNP 83 <=125 pg/mL [facility] Specimen Anatomical Collection Method Collection Time Receive d Time (Source) Location / / Volume Laterality Blood 02/06/2023 3:05 AM 3 3:20 CDT AM CDT Cathie Meneses APRN,JUANP LAB BLOOD ORDERABLES Performing Organization Address City/[facility] Phon e Number [facility] CANCER Unless otherwise noted, [address] all lab tests performed by: Division of Pathology and Laboratory Medicine [address] CRP (02/06/2023 3:05 AM CDT)Only the most recent of3 resultswithin the time period is included. P athologist Signature CRP 65.62 mg/L [facility] Comment: Reference ranges for HS CRP assay [...] APRN LAB BLOOD ORDERABLES Performing Organization Address City/[facility]/ZIP Code Phon e Number [facility] CANCER Unless otherwise noted, [address] all lab tests performed by: Division of Pathology and Laboratory Medicine [facility]5 [facility] Troponin T (In-House) (02/06/2023 1:09 AM CDT)Only the most recent of2 results within the time period is included. athologist Signature Troponin T 10 <=19 ng/L [facility] Comment: < 19 ng/L Suggest retest at [...] MD LAB BLOOD ORDERABLES Performing Organization Address City/[facility]/ZIP Code Phon e Number [facility] CANCER Unless otherwise noted, [address] all lab tests performed by: Division of Pathology and Laboratory Medicine [address] (ABNORMAL) Urine Culture (02/06/2023 12:40 AM CDT)Only the most recent of3 resultswithin the time period is included. [facility] Method Time Signature Final Report 10 - 50,000 cfu/ml Normal site isabel present. CA Generally of low significance. KULWANT Correlate with clinical data and culture history. CANCER CENTER (A) Specimen Anatomical Collection Method Collection Time Receive d Time (Source) Location / / Volume Laterality Urine 02/06/2023 12:40 02/06/2023 2:54 AM CDT AM CDT IonaWiley [place] APRN MICROBIOLOGY - GENERAL ORDER GODWIN Performing Organization Address City/[facility]/ZIP Code Phon e Number [facility] CANCER Unless otherwise noted, [address] all lab tests performed by: Division of Pathology and Laboratory Medicine [address] [place] [address] aPTT (02/05/2023 8:26 PM CDT)Only the most recent of5 resultswithin the time period is included. athologist Signature aPTT 28.5 22.8 - 34.2 [facility] Specimen Anatomical Collection Method Collection Time Receive d Time (Source) Location / / Volume Laterality Blood 02/05/2023 8:26 PM 3 8:29 CDT PM CDT Deneen Guevara MD LAB BLOOD ORDERABLES Performing Organization Address City/[facility]/ZIP Code Phon e Number [facility] CANCER Unless otherwise noted, [address] all lab tests performed by: Division of Pathology and Laboratory Medicine [address] [place] [address] VB Lactate (02/05/2023 8:26 PM CDT)Only the most recent of4 resultswithin the time period is included. athologist Signature V Lactate 1.2 0.5 - 1.6 [facility] mmol/L [facility] Specimen Anatomical Collection Method Collection Time Receive d Time (Source) Location / / Volume Laterality Blood 02/05/2023 8:26 PM 3 8:29 CDT PM CDT Deneen Guevara MD LAB BLOOD ORDERABLES Performing Organization Address City/[facility]/ZIP Code Phon e Number [facility] CANCER Unless otherwise noted, [address] all lab tests performed by: Division of Pathology and Laboratory Medicine [address] [place] [address] (ABNORMAL) Prothrombin Time with INR (02/05/2023 8:26 PM CDT)Only the most recent of5 resultswithin the time period is included. athologist Signature PT 14.7 (H) 11.9 - 14.1 [facility](s) CANCER CENTER INR 1.16 (H) 0.89 - 1.10 [facility] Specimen Anatomical Collection Method Collection Time Receive d Time (Source) Location / / Volume Laterality Blood 02/05/2023 8:26 PM 3 8:29 CDT PM CDT Deneen Guevara MD LAB BLOOD ORDERABLES Performing Organization Address City/[facility]/ZIP Code Phon e Number [facility] CANCER Unless otherwise noted, [address] all lab tests performed by: Division of Pathology and Laboratory Medicine [address] [place] [address] (ABNORMAL) D Dimer (02/05/2023 8:26 PM CDT) athologist Signature D-Dimer 3.04 (H) 0.10 - 0.50 [facility] mcg/ml [facility] Comment: The cut off value for exclusion of venou s thromboembolism is <0.51 mcg/mL FEUs (fibrinogen equival ent units). Specimen Anatomical Collection Method Collection Time Receive d Time (Source) Location / / Volume Laterality Blood 02/05/2023 8:26 PM 3 8:29 CDT PM CDT Deneen Guevara MD LAB BLOOD ORDERABLES Performing Organization Address [facility] Phon e Number [facility] Unless otherwise noted, [address] all lab tests performed by: Division of Pathology and Laboratory Medicine [address] [place] [address] X-ray Abdomen AP (02/05/2023 6:59 PM CDT) [...] resultswithin the time period is included. [facility] Method Time Signature COVID19 Not Detected Not Detected CARLA GRIFFIN (SARS-CoV-2) [facility] COVID19 SARS Inpatient [place] Indication Admission [facility] Covid 19 See Note [place] Comment [facility] Comment: The ruby SARS-CoV-2 [...] fact sheet for patients provided by the movement therapist ([employer]) can be reviewed at: https://www.fda.gov/media/134409/downloa d. A fact sheet for Health Care providers is provided by the movement therapist ([employer]) and can be reviewed at: https://www.fda.gov/media/383700/download Results must be interpreted within the c [...] and high-complexity tests. The Microbiology Laboratory at [facility], CLIA Accreditation #[id number] a [facility] Accreditation #[id number], verified the performance characteristics of this assay. Internal controls are used to monitor all stages of the test process. Specimen (Source) Anatomical Collection Method Collection Time Re ceived Time Location / / Volume Laterality Nasopharyngeal Swab 02/05/2023 5:09 02/05 PM CDT 5:17 PM CDT Amanda Proctor MD MICROBIOLOGY - GENERAL ORDER GODWIN Performing Organization Address City/[facility]/ZIP Code Phon e Number [facility] CANCER Unless otherwise noted, [address] all lab tests performed by: Division of Pathology and Laboratory Medicine [address] Lipase (02/05/2023 3:30 PM CDT)Only the most recent of4 resultswithin the time period is included. P athologist Signature Lipase Lvl 18 13 - 60 U/L [facility] Specimen Anatomical Collection Method Collection Time Receive d Time (Source) Location / / Volume Laterality Blood 02/05/2023 3:30 PM 3 3:39 CDT PM CDT Amanda Proctor MD LAB BLOOD ORDERABLES Performing Organization Address City/[facility]/ZIP Code Phon e Number [facility] Unless otherwise noted, [address] all lab tests performed by: Division of Pathology and Laboratory Medicine [address] CKMB (02/05/2023 3:30 PM CDT) P athologist Signature CK MB <2.0 <=5.3 ng/mL [facility] Specimen Anatomical Collection Method Collection Time Receive d Time (Source) Location / / Volume Laterality Blood 02/05/2023 3:30 PM 3 3:39 CDT PM CDT Amanda Proctor MD LAB BLOOD ORDERABLES Performing Organization Address City/[facility]/ZIP Code Phon e Number [facility] CANCER Unless otherwise noted, [address] all lab tests performed by: Division of Pathology and Laboratory Medicine [address] Amylase Level (02/05/2023 3:30 PM CDT)Only the most recent of2 resultswithin the time period is included. P athologist Signature Amylase Lvl 43 28 - 100 [facility] U/L [facility] Specimen Anatomical Collection Method Collection Time Receive d Time (Source) Location / / Volume Laterality Blood 02/05/2023 3:30 PM 3 3:39 CDT PM CDT Amanda Proctor MD LAB BLOOD ORDERABLES Performing Organization Address City/State/ZIP Code Phon e Number [facility] CANCER Unless otherwise noted, [address] all lab tests performed by: Division of Pathology and Laboratory Medicine [address] (ABNORMAL) Urinalysis with Microscopic (02/05/2023 12:39 AM CDT) [facility] Method Time Signature UA Color [place] (A) Straw-Yel [facility] UA Appear Cloudy (A) Clear [facility] UA Glucose 500 (A) NEG mg/dL [facility] UA Bili NEG NEG [facility] UA Ketones 40 (A) NEG mg/dL [facility] UA Spec Grav 1.021 1.003 - [facility] 1.035 [facility] UA Blood NEG NEG [facility] UA pH 6.0 5.0 - 9.0 [facility] UA Protein 20 (A) NEG mg/dL [facility] UA Urobilinogen NEG NEG [facility] UA Nitrite NEG NEG [facility] UA Leuk Est NEG NEG [facility] UA WBC NOT SEEN 0 - 2 [facility] Comment: Some reporting parameters within the Uri nalysis test have changed due to the implementation of new instrumentation in the [facility], allowing greater sensitivity of measurement. Urinalysis results rep orted by the [facility] using existing instrumentation, as well as Urinalysis t esting performed manually or by backup methodology at the [facility] will remain relatively unchanged. New reporting parameters and units will not be reported for all campuses. UA RBC 13 (H) 0 - 2 /HPF [facility] UA Mucous NOT SEEN Not Seen-Trace /HPF [facility] UA Bacteria NOT SEEN NOT SEEN /HPF [facility] UA Squam Epi OCC None-Occasional /HPF [facility] Specimen Anatomical Collection Method Collection Time Receive d Time (Source) Location / / Volume Laterality Urine 02/05/2023 12:39 02/06/2023 AM CDT 12:42 AM CDT Irina Houston APRN URINE ORDERABLES Performing Organization Address City/[facility]/ZIP Code Phon e Number [facility] CANCER Unless otherwise noted, [address] all lab tests performed by: Division of Pathology and Laboratory Medicine [address] [facility] Tip Verification Central Vascular Access Device (01/29/2023 3:08 PM CDT) Narrative Justo Banuelos RN - 01/29/2023 3:08 PM CDT Justo Banuelos RN 01/29/2023 3:08 PM Central Vascular Access Device Tip Verif ication Performed by: Justo Banuelos RN Authorized by: Rashaun Wiley MD [employer] Date device placed: 01/29/2023 Placed by: Justo Banuelos RN Device placement location: [facility] Catheter Type: PICC Catheter lumen: Double lumen [...] By: Rashaun Wiley MD Procedure Location: Inpatient [employer] [employer] present: yes (Saeed GRIFFIN) 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 Pre-p rocedure the patient was [...] placement. placement and tip verified using tip linker up and place ment and tip verified by [...] athologist Signature Hgb 13.3 12.0 - 16.0 [facility] gm/dL [facility] Specimen Anatomical Collection Method Collection Time Receive d Time (Source) Location / / Volume Laterality Blood 01/28/2023 8:24 AM 3 8:30 CDT AM CDT Mana Powers APRN LAB BLOOD ORDERABLES Performing Organization Address City/State/ZIP Code Phon e Number [facility] Unless otherwise noted, [address] all lab tests performed by: Division of Pathology and Laboratory Medicine [address] [place] [address] Hematocrit (01/28/2023 8:24 AM CDT)Only the most recent of3 resultswithin the time period is included. athologist [facility] Hct 40.6 37.0 - 47.0 [facility] % [facility] Specimen Anatomical Collection Method Collection Time Receive d Time (Source) Location / / Volume Laterality Blood 01/28/2023 8:24 AM 3 8:30 CDT AM CDT Mana Powers APRN LAB BLOOD ORDERABLES Performing Organization Address City/[facility]/ZIP Code Phon e Number [facility] CANCER Unless otherwise noted, [address] all lab tests performed by: Division of Pathology and Laboratory Medicine [facility] (ABNORMAL) Urinalysis Microscopic Exam (01/26/2023 10:45 PM CDT) athologist [facility] UA WBC 6 (H) 0 - 2 /HPF [facility] Comment: Some reporting parameters within the Uri nalysis test have changed due to the implementation of new instrumentation in the [facility], allowing greater sensitivity of measurement. Urinalysis results rep orted by the [facility] using existing instrumentation, as well as Urinalysis t esting performed manually or by backup methodology at the [place] will remain relatively unchanged. New reporting parameters and units will not be reported for all campuses. UA RBC <1 0 - 2 /HPF [facility] UA Mucous NOT SEEN Not Seen-Trace /HPF [place] MD ALCALA [facility] [place] UA Bacteria NOT SEEN NOT SEEN /HPF [facility] UA Squam Epi OCC None-Occasional /HPF [facility] Specimen Anatomical Collection Method Collection Time Receive d Time (Source) Location / / Volume Laterality Urine 01/26/2023 10:45 01/26/2023 PM CDT 10:49 PM CDT Amanda Proctor MD LAB BLOOD ORDERABLES Performing Organization Address City/State/ZIP Code Phon e Number [facility] CANCER Unless otherwise noted, [address] all lab tests performed by: Division of Pathology and Laboratory Medicine [facility]5 [address] (ABNORMAL) Urinalysis w/Microscopic if Indicated (01/26/2023 10:45 PM CDT)Only the most recent of2 resultswithin the time period is included. Analysis Performed At Patho logist Time Signature UA Color [place]raw [place] [facility] UA Appear Clear Clear [facility] UA Glucose 500 (A) NEG mg/dL [facility] UA Bili NEG NEG [facility] UA Ketones NEG NEG mg/dL [facility] UA Spec Grav 1.020 1.003 - [facility] 1.035 [facility] UA Blood NEG NEG [facility] UA pH 5.5 5.0 - 9.0 [facility] UA Protein 30 (A) NEG mg/dL [facility] UA Urobilinogen NEG NEG [facility] UA Nitrite NEG NEG [facility] UA Leuk Est NEG NEG [facility] Specimen Anatomical Collection Method Collection Time Receive d Time (Source) Location / / Volume Laterality Urine 01/26/2023 10:45 01/26/2023 PM CDT 10:49 PM CDT Amanda Proctor MD URINE ORDERABLES Performing Organization Address City/State/ZIP Code Phon e Number [facility] Unless otherwise noted, [address] all lab tests performed by: Division of Pathology and Laboratory Medicine [address] (ABNORMAL) LDH (01/26/2023 2:44 PM CDT)Only the most recent of3 resultswithin the time period is included. P athologist Signature LDH 289 (H) 135 - 214 [facility] U/L [facility] Comment: Results greater than [...] Organization Address City/State/ZIP Code Phon e Number [facility] CANCER Unless otherwise noted, [place] [address] [place] all lab tests performed by: Division of Pathology and Laboratory Medicine [address] [facility] (ABNORMAL) Controlled Substance Monitoring Panel, Urine (01/20/2023 12:37 PM CDT) Analysis Performed At Patho logist Time Signature Urine 55.1 mg/dL [place] Creatinine [facility] Urine Specific 1.014 [facility] [place] [facility] Urine Ph 6.2 [facility] Urine Oxidants Negative Cutoff: [place] 200 mg/L [facility] Urine Comment Normal [facility] U Negative Cutoff: [place] Barbiturates-Ma 200 ng/mL [facility] U Cocaine Negative Cutoff: [place] Lvl-Luu 150 ng/mL [facility] Comment: This cocaine immunoassay targets benzoyl ecgonine the primary metabolite of cocaine. U THC-Luu See Footnote (A) Cutoff: 50 ng/mL [facility] Comment: RESULT: Presumptive Positive This immunoassay targets [...] testing. Codeine Not Detected Cutoff: 25 ng/mL [place] MD ALCALA [facility] Comment: Tylenol 3 Zxrwcbf-7-qgte-glucuronide Not Detected Cutoff: 100 ng/mL [facility] Comment: Metabolite of codeine Morphine Not Detected Cutoff: 25 ng/mL [facility] CARI [facility] Comment: Martha Mary, Contin; Also a minor metabolite (10%) of codeine and can be seen in low concentra tions (<2,000 ng/mL) with poppy seed ingestion. Cqixthdi-9-dvkb-glucuronide Not Detected Cutoff: 100 ng/mL [facility] Comment: Metabolite of morphine 6-monoacetylmorphine Not Detected Cutoff: 25 ng/mL [facility] Comment: Metabolite of heroin Hydrocodone Not Detected Cutoff: 25 ng/mL [facility] Comment: Lortab, Corona, Vicodin; Also a very luci r metabolite of codeine and impurity (<1%) of oxycodone. Norhydrocodone Not Detected Cutoff: 25 ng/mL [facility] Comment: Metabolite of hydrocodone Dihydrocodeine Not Detected Cutoff: 25 ng/mL [facility] Comment: Metabolite of hydrocodone Hydromorphone Not Detected Cutoff: 25 ng/mL [facility] Comment: Dilaudid, Exalgo; Also a metabolite of h ydrocodone and a minor (<5%) metabolite of morphine. Okuxgkmuwdrmf-8-hopc-glucuronide Not Detected Cutoff: 100 [facility] ng/mL [facility] Comment: Metabolite of hydromorphone Oxycodone Present (A) Cutoff: 25 ng/mL [place] SURAJ [facility] Comment: Endocet, Percocet, Oxycontin Noroxycodone Present (A) Cutoff: 25 ng/mL [place] MD [facility] Comment: Metabolite of oxycodone Oxymorphone Not Detected Cutoff: 25 ng/mL [place] MD [facility] Comment: Numorphan, Opana; Also a metabo lite of oxycodone. Smgmanncxfp-7-jcdh-glucuronide Not Detected Cutoff: 100 ng/mL [facility] Comment: Metabolite of oxymorphone and/o r naloxone (nornaloxone) Noroxymorphone Present (A) Cutoff: 25 ng/mL [facility] Comment: Metabolite of oxymorphone and/o r naloxone (nornaloxone) Fentanyl Not Detected Cutoff: 2 ng/mL [place] MD SURAJ OSUNA [facility] Comment: Actiq, Duragesic, Fentora Norfentanyl Not Detected Cutoff: 2 ng/mL [place] [facility] Comment: Metabolite of fentanyl Meperidine Not Detected Cutoff: 25 ng/mL [place] MD [facility] Comment: Demerol Normeperidine Not Detected Cutoff: 25 ng/mL [facility] Comment: Metabolite of meperidine Naloxone Not Detected Cutoff: 25 ng/mL [place] MD ALCALA JASMINE [facility] Comment: Narcan Xrnurqpp-2-caow-glucuronide Not Detected Cutoff: 100 ng/mL [facility] Comment: Metabolite of naloxone U Methadone Not Detected Cutoff: 25 ng/mL [place] MD Z[facility]O [facility] Comment: Dolophine EDDP Not Detected Cutoff: 25 ng/mL [place] MD ALCALA JASMINE [facility] Comment: Metabolite of methadone Propoxyphene Not Detected Cutoff: 25 ng/mL [place] MD Benjamin [facility] Comment: Darvon, Darvocet Norpropoxyphene Not Detected Cutoff: 25 ng/mL [facility] Comment: Metabolite of propoxyphene Tramadol Not Detected Cutoff: 25 ng/mL [place] MD ALCALA [facility] Comment: Tradol, Ultram, Ultracet O-desmethyltramadol Not Detected Cutoff: 25 ng/mL [facility] Comment: Metabolite of tramadol Tapentadol Not Detected Cutoff: 25 ng/mL [place] MD [facility] Comment: Nucynta Fwjfhcrdxj-pppm-drmgbnygyff Not Detected Cutoff: 100 ng/mL [facility] Comment: Metabolite of tapentadol Buprenorphine Not Detected Cutoff: 5 ng/mL [place] MD Benjamin [facility] Comment: Buprenex, Suboxone Norbuprenorphine Not Detected Cutoff: 5 ng/mL [facility] Comment: Metabolite of buprenorphine Norbuprenorphine Glucuronide Not Detected Cutoff: 20 ng/mL [facility] Comment: Metabolite of buprenorphine Opioid Interpretation See Footnote [facility] Comment: Test detected the presence of oxycodone and one of its metabolites (noroxycodone) along with no roxymorphone (metabolite of oxymorphone). Suspect use of oxymorphone and/or oxycodone within the past three d ays. Trace amounts of oxycodone can be found as an impurity in oxymorphone. ADDITIONAL INFORMATIO N This test was developed and its performa nce characteristics determined by [facility] in a manner co nsistent with CLIA requirements. This test has not been sisi ared or approved by the U.S. Food and Drug Administration. Alprazolam Urine Present (A) Cutoff: 10 ng/mL [facility] Comment: Xanax Alpha-Hydroxyalprazolam Urine Present (A) Cutoff: 10 ng/mL [facility] Comment: Metabolite of Alprazolam Alpha-Hydroxyalprazolam Present (A) Cutoff: 50 ng/mL [facility] Glucuronide Urine [facility] Comment: Metabolite of Alprazolam Chlordiazepoxide Urine Not Detected Cutoff: 10 ng/mL [facility] Comment: Librium Colbazam Urine Not Detected Cutoff: 10 ng/mL [facility] Comment: Frisium, Onfi N-Desmethylclobazam Urine Not Detected Cutoff: 200 ng/mL [facility] Comment: Metabolite of Clobazam Clonazepam Urine Not Detected Cutoff: 10 ng/mL [facility] Comment: Klonopin, Rivotril 7-Aminoclonazepam Urine Not Detected Cutoff: 10 ng/mL [facility] Comment: Metabolite of Clonazepam Diazepam Urine Not Detected Cutoff: 10 ng/mL [facility] Comment: Valium Nordiazepam Urine Not Detected Cutoff: 10 ng/mL [facility] Comment: Metabolite of Chlordiazepoxide, Diazepam, or Prazepam. Flunitrazepam Urine Not Detected Cutoff: 10 ng/mL [facility] Comment: Rohypnol 7-Aminoflunitrazepam Urine Not Detected Cutoff: 10 ng/mL [facility] Comment: Metabolite of Flunitrazepam FlUrinerazepam Urine Not Detected Cutoff: 10 ng/mL [facility] Comment: Dalmane 2-Hydroxy Ethyl Flurazepam Not Detected Cutoff: 10 ng/mL [facility] Comment: Metabolite of Flurazepam Lorazepam Urine Not Detected Cutoff: 10 ng/mL [facility] Comment: Ativan Lorazepam Glucuronide Not Detected Cutoff: 50 ng/mL [facility] Urine CENTER Comment: Metabolite of Lorazepam Midazolam Urine Not Detected Cutoff: 10 ng/mL [facility] Comment: Versed Alpha-Hydroxy Midazolam Not Detected Cutoff: 10 ng/mL [facility] Comment: Metabolite of Midazolam Oxazepam Urine Not Detected Cutoff: 10 ng/mL [facility] Comment: Serax; Also a metabolite of Chlordiazepo xide, Diazepam, or Temazepam. Oxazepam Glucuronide Urine Not Detected Cutoff: 50 ng/mL [facility] Comment: Metabolite of Oxazepam Prazepam Urine Not Detected Cutoff: 10 ng/mL [facility] Comment: Centrax Temazepam Urine Not Detected Cutoff: 10 ng/mL [facility] Comment: Restoril; Also a metabolite of Diazepam. Temazepam Glucuronide Not Detected Cutoff: 50 ng/mL [facility] Comment: Metabolite of Temazepam Triazolam Urine Not Detected Cutoff: 10 ng/mL [facility] Comment: Halcion Alpha-Hydroxy Triazolam Not Detected Cutoff: 10 ng/mL [facility] Comment: Metabolite of Triazolam Zolpidem Urine Not Detected Cutoff: 10 ng/mL [facility] Comment: Ambien Zolpidem Ynzox-1-Lfimqhzvpb Present (A) Cutoff: 10 ng/mL [facility] Acid Urine [facility] Comment: Metabolite of Zolpidem Benzodiazepine Interp Urine See Footnote [facility] Comment: Test detected the presence of alprazolam and two of its metabolites (alpha-hydroxyalprazolam and alpha-hydroxyalprazolam glucuronide). Agarwal spect use of alprazolam within the past three days. Test detected the presence of zolpidem p yxeea-8-tulkfxbrgd acid (metabolite of zolpidem) only. Susp ect use of zolpidem within the past four days. ADDITIONAL INFORMATIO N This test was developed and its performa nce characteristics determined by [facility] in a manner co nsistent with CLIA requirements. This test has not been sisi ared or approved by the U.S. Food and Drug Administration. Methamphetamine Not Detected Cutoff: 100 ng/mL [facility] Comment: Desoxyn Amphetamine Not Detected Cutoff: 100 ng/mL [facility] Comment: Dyanavel XR, Adzenys ER, Adderall, Vyvan se; Also a metabolite of methamphetamine 3,4-Methylenedioxymethamphetamine Not Detected Cutoff: 100 [facility] (MDMA) ng/mL [facility] 3,0-Ddztvxhsiunxcr-W-Ethylamphetamine Not Detected Cutoff: 100 [facility] (MDEA) ng/mL [facility] 3,4-Methylenedioxyamphetamine (MDA) Not Detected Cutoff: 100 [facility] ng/mL [facility] Comment: Also a metabolite of MDMA and/o r MDEA Ephedrine Not Detected Cutoff: 100 ng/mL [facility] Pseudoephedrine Present (A) Cutoff: 100 ng/mL [facility] Comment: Sudafed Phentermine Not Detected Cutoff: 100 ng/mL [facility] Comment: Adipex-P, Lomaira, Qsymia Phencyclidine (PCP) Not Detected Cutoff: 20 ng/mL [facility] Methylphenidate Not Detected Cutoff: 20 ng/mL [facility] Comment: Ritalin, Concerta Ritalinic acid Not Detected Cutoff: 100 ng/mL [facility] Comment: Metabolite of methylphenidate Stimulant Interpretation See Footnote [facility] Comment: Test detected the presence of pseudoephe drine. Suspect use of pseudoephedrine within the past three days. ADDITIONAL INFORMATIO N This test was developed and its performa nce characteristics determined by [facility] in a manner co nsistent with CLIA requirements. This test has not been sisi ared or approved by the U.S. Food and Drug Administration. Test Performed by: [facility] [address] [place] [address] 107 Material Handler: Yonathan Guzman M.D. Ph. D.; CLIA# [id number] Patients Current Medications NOT ANSWERED [facility] Comment: ADDITIONAL INFORMATIO N Accuracy and completeness of declared me dications on reports solely dependent on information submitted by client. Specimen Anatomical Collection Method Collection Time Receive d Time (Source) Location / / Volume Laterality Urine 01/20/2023 12:37 01/20/2023 8:31 PM CDT PM CDT Rogerio Kramer MD URINE ORDERABLES Performing Organization Address City/State/ZIP Code Phon e Number [facility] Unless otherwise noted, [place], [place] [id number] [place] [address] all lab tests performed by: Division of Pathology and Laboratory Medicine Jasmyne5 Michelle Hodges (ABNORMAL) POC Urine Drug Screen (01/20/2023 12:37 PM CDT) athologist Signature POC U Amp Negative Negative [facility] Comment: Drug Abuse Cutoff Concentration: Cutoff: 1000 ng/mL POC U Barbit Negative Negative [facility] Comment: Drug Abuse Cutoff Concentration: 300 ng/mL POC U Benzo Positive (A) Negative [facility] Comment: Drug Abuse Cutoff Concentration: Cutoff: 300 ng/ mL POC U Cocaine Negative Negative [facility] Comment: Drug Abuse Cutoff Concentration: Cutoff: 300 ng/mL POC U THC Positive (A) Negative [facility] Comment: Drug Abuse Cutoff Concentration: Cutoff: 50 ng/mL POC U Methd Negative Negative [facility] Comment: Drug Abuse Cutoff Concentration: Cutoff: 300 ng/mL POC U Mampht Negative Negative [facility] Comment: Drug Abuse Cutoff Concentration: Cutoff: 1000 ng/mL POC U Opiate Negative Negative [facility] Comment: Drug Abuse Cutoff Concentration: Cutoff: 2000 ng/mL POC U Oxycod Positive (A) Negative [facility] Comment: Drug Abuse Cutoff Concentration: Cutoff: 100 ng/mL Due to the assay cross reactivity betwee n Oxycodone and Opiates, and lower sensitivity compared to GC-MS method, the test results may be falsely positive or falsely negative. Confirmation with concurrent GC-MS results is recommended. POC U PCP Negative Negative [facility] Comment: Drug Abuse Cutoff Concentration: Cutoff: 25 ng/mL POC U TCA Negative Negative [facility] Comment: Drug Abuse Cutoff Concentration: Cutoff: 1000 ng/mL POC U PPX Negative Negative [facility] Comment: Drug Abuse Cutoff Concentration: [...] 1:10 Catch PM CDT PM CDT Narrative [facility] - 1:30 PM CDT The POC Urine Qualitative Drug Screen Pa augusto report is intended for use in clinical monitoring or management of patients. Un confirmed screening results must not be used for non-medical purposes such as legal o r employment-related testing. Rogerio Kramer MD POINT OF CARE TEST ORDERA BLES Performing Organization Address City/State/ZIP Code Phon e Number [facility] Unless otherwise noted, [place] [address] [place] all lab tests performed by: Division of Pathology and Laboratory Medicine [facility] Tetrahydocannabinol (THC), Quantitative, Urine (01/20/2023 12:37 PM CDT) athologist Signature U THC n/a CARLA GRIFFIN GC/MS-[facility] U THC see note CARLA GRIFFIN Interp-[facility] Comment: Carboxy-THC Confirmation, U: Carboxy-THC Interpretation: Positive ADDITIONAL INFORMATION: This report is intended for use in clini mari monitoring and management of patients. It is not intend ed for use in employment-related testing. Delta-8 Carboxy-Tetrahydrocannabinol by LC-MS/MS: 672 ng/mL Reference Value: Cutoff: 5 Delta-9 Carboxy-Tetrahydrocannabinol by LC-MS/MS: 42 ng/mL Reference Value: Cutoff: 5 PERFORMING LAB: [facility] [address] [place], [place] [id number] Yonathan Guzman M.D. Ph.D. [id number] [facility] n/a [facility] Specimen Anatomical Collection Method Collection Time Receive d Time (Source) Location / / Volume Laterality Urine, Clean 01/20/2023 12:37 01/27/2023 Catch PM CDT 11:34 AM CDT Rogerio Kramer MD URINE ORDERABLES Performing Organization Address City/State/ZIP Code Phon e Number [facility] Unless otherwise noted, [place], [place] [id number] [place] [address] all lab tests performed by: Division of Pathology and Laboratory Medicine [address] [place] [address] X-ray Knee 1 Or 2 Views Right [...] Headache, headache Comparison: CT head without contrast aant ed 12/10/2022 and MRI skull base dated [...] OU - Both Eyes (12/29/2022 10:51 AM ACTIVITIES DIRECTOR SCOUTING) Specimen (Source) Anatomical Location Collection Method / Collectio n Time Received Time / Laterality Volume Narrative Al-Suzanne Heredia MD - 12/30/2022 11:50 AM ACTIVITIES DIRECTOR SCOUTING Right Eye Threshold was 30-2. The AVF laterality w as right. Strategy was TMOER. Left Eye Threshold was 30-2. The AVF [...] OU - Both Eyes (12/29/2022 10:43 AM ACTIVITIES DIRECTOR SCOUTING) Specimen (Source) Anatomical Location Collection Method / Collectio n Time Received Time / Laterality Volume Suzanne Hill MD - 12/30/2022 11:44 AM ACTIVITIES DIRECTOR SCOUTING Normal average thickness of peripapillary retinal nerve fiber layer . With borderline thinning temporally righ t eye Suzanne Mcgrath MD OPHTHALMOLOGY IMG ORDERABLES OCT, Retina - OU - Both Eyes (12/29/2022 10:43 AM ACTIVITIES DIRECTOR SCOUTING) Specimen (Source) Anatomical Location Collection Method / Collectio n Time Received Time / Laterality Volume Suzanne Hill MD - 12/30/2022 11:44 AM ACTIVITIES DIRECTOR SCOUTING This result has an attachment that is no t available. Normal macular volume. No sign of serou s retinopathy Suzanne Mcgrath MD OPHTHALMOLOGY IMG ORDERABLES COVID-19 (SARS-CoV-2) PCR-Asymptomatic (12/23/2022 12:01 PM ACTIVITIES DIRECTOR SCOUTING) [facility] Method Time Signature COVID19 (SARS Not Detected Not Detected [facility] CoVSuzie2) [facility] Comment: This test is a qualitative reverse-trans criptase polymerase chain reaction (RT- PCR) developed for the [employer] system and intended for qualitative detection of SARS CoV-2 RNA in nasopharyngeal a nd oropharyngeal swab specimens collecte d from any individuals, including those suspected o f COVID-19 by their healthcare provider, and those without symptoms or other reasons to suspect COVID-19. A fact sheet for patients provided by the movement therapist ( [employer]) can be rev iewed at: https://www.fda.gov/media/832668/downloa d. A fact sheet for Health Care providers is provided by the movement therapist ([employer]) and can be reviewed at: https://www.fda.gov/media/543542/download Results must be interpreted within the c [...] were verified by the Microbiology Laboratory at [facility] Cancer Tony, CLIA Accreditation #: [id number] and CAP Accreditation #: [id number]. COVID19 SARS Source CITRUS PEELER Swab [place] MD ALCALA [facility] COVID19 SARS Indication Pre-Radiation Therapy [facility] Specimen (Source) Anatomical Collection Method Collection Time Re ceived Time Location / / Volume Laterality Nasopharyngeal Swab 12/23/2022 12:01 12/03 PM ACTIVITIES DIRECTOR SCOUTING 3:41 PM ACTIVITIES DIRECTOR SCOUTING Winter Luu MD MICROBIOLOGY - GENERAL ORDER GODWIN Performing Organization Address City/State/ZIP Code Phon e Number [facility] Unless otherwise noted, [place] [address] CENTER all lab tests performed by: Division of Pathology and Laboratory Medicine [address] OCT, Optic Nerve - OU - Both Eyes (12/15/2022 10:37 AM ACTIVITIES DIRECTOR SCOUTING) Specimen (Source) Anatomical Location Collection Method / Collectio n Time Received Time / Laterality Volume Narrative Sheridan Alvarez MD - 12/17/2022 12:25 PM ACTIVITIES DIRECTOR SCOUTING Right Eye Average nerve fiber layer thickness cons istent with normal Left Eye Average nerve fiber layer thickness cons istent with normal Sheridan Alvarez MD OPHTHALMOLOGY IMG ORDERABLES OCT, Retina - OU - Both Eyes (12/15/2022 10:37 AM ACTIVITIES DIRECTOR SCOUTING) Specimen (Source) Anatomical Location Collection Method / Collectio n Time Received Time / Laterality Volume Narrative Sheridan Alvarez MD - 12/17/2022 12:25 PM ACTIVITIES DIRECTOR SCOUTING Right Eye This is the baseline exam. Findings incl ude normal observations. Left Eye This is the baseline exam. Findings incl ude normal observations. Sheridan Alvarez MD OPHTHALMOLOGY IMG ORDERABLES Fundus Photos - OU - Both Eyes (12/15/2022 10:37 AM ACTIVITIES DIRECTOR SCOUTING) Specimen (Source) Anatomical Location Collection Method / Collectio n Time Received Time / Laterality Volume Narrative Sheridan Alvarez MD - 12/17/2022 12:25 PM ACTIVITIES DIRECTOR SCOUTING Right Eye Basline Exam. Sheridan Alvarez MD OPHTHALMOLOGY IMG ORDERABLES 3D Dental Imaging (iCAT) (12/15/2022 8:42 AM ACTIVITIES DIRECTOR SCOUTING) Specimen (Source) Anatomical Location Collection Method / Collectio n Time Received Time / Laterality Volume Narrative Systemgenerated, Documentation - 023 8:42 AM ACTIVITIES DIRECTOR SCOUTING This procedure requires no interpretatio n from the radiologist. Adegbenga Otun DDS IMG NON DI ORDERABLES FL Modified Barium Swallow w Speech (12/14/2022 2:37 PM ACTIVITIES DIRECTOR SCOUTING) Anatomical Region Laterality Modality Neck Radio Fluoroscopy Specimen (Source) Anatomical Collection Method Collection Time Re ceived Time Location / / Volume Laterality 12/14/2022 2:58 PM ACTIVITIES DIRECTOR SCOUTING Impressions 12/14/2022 3:08 PM ACTIVITIES DIRECTOR SCOUTING 1. Flash penetration without aspiration seen with thin liquid barium. 2. Please refer to the separately dictat ed speech pathology report for further details and recommendations. Narrative 12/14/2022 3:08 PM ACTIVITIES DIRECTOR SCOUTING FULL RESULT: Examination: FL MODIFIED BARIUM SWALLO [...] or aspiration seen with pudding, and aircraft instrument repairer cker. There was no pharyngeal residue. Pharyngeal [...] ORDERABLES (ABNORMAL) ABG Venous (12/11/2022 6:21 PM ACTIVITIES DIRECTOR SCOUTING) athologist Signature pH Raghavendra 7.40 7.32 - 7.43 [facility] Comment: Results are corrected for a bod y temp of 37C pCO2 Raghavendra 47.6 41.0 - 51.0 mmHg [place] MD LEIF Chapman [facility] pO2 Raghavendra 52 mmHg [place] [facility] HCO3 Raghavendra 29 (H) 21 - 28 mmol/L [facility] Base Excess Raghavendra 3 -2 - 3 mmol/L CA MD CARI SCHNEIDER [facility] O2 Sat Raghavendra 87 % [facility] CENTER Specimen Anatomical Collection Method Collection Time Receive d Time (Source) Location / / Volume Laterality Blood 12/11/2022 6:21 PM 3 6:29 ACTIVITIES DIRECTOR SCOUTING PM ACTIVITIES DIRECTOR SCOUTING Travis Lopez MD LAB BLOOD ORDERABLES Performing Organization Address City/State/ZIP Code Phon e Number [facility] Unless otherwise noted, [address] all lab tests performed by: Division of Pathology and Laboratory Medicine [facility] Michelle Hodges Ketone Bodies Qualitative (12/11/2022 5:19 PM ACTIVITIES DIRECTOR SCOUTING) athologist [facility] UA Ketones NEG NEG mg/dL [facility] Specimen Anatomical Collection Method Collection Time Receive d Time (Source) Location / / Volume Laterality Urine 12/11/2022 5:19 PM 3 5:24 ACTIVITIES DIRECTOR SCOUTING PM ACTIVITIES DIRECTOR SCOUTING Waleska Salinas APRN URINE ORDERABLES Performing Organization Address City/State/ZIP Code Phon e Number [facility] Unless otherwise noted, [address] all lab tests performed by: Division of Pathology and Laboratory Medicine [facility]5 Michelle Hodges POC Critical (12/11/2022 3:34 PM ACTIVITIES DIRECTOR SCOUTING)Only the most recent of2 resultswithin the time period is included. athologist Signature POC Critical See Note POC [facility] Comment Comment: Test performer notified Orderin g Licensed Provider and /or designee of POC Glucose Screen critical Results.. Specimen Anatomical Collection Method Collection Time Receive d Time (Source) Location / / Volume Laterality Blood 12/11/2022 3:34 PM 3 3:34 ACTIVITIES DIRECTOR SCOUTING PM ACTIVITIES DIRECTOR SCOUTING Travis Lopez MD POINT OF CARE TEST ORDERABLE S Performing Organization Address [facility] Phon e Number POC [facility] Unless otherwise noted, [place] [address] lab tests performed by: Division of Pathology and Laboratory Medicine [address] [place] [address] (ABNORMAL) POC VBG+Lac (12/09/2022 9:36 PM ACTIVITIES DIRECTOR SCOUTING) P athologist Signature POC VB pH 7.46 (H) [...] Clean Dev Yes POC [facility] Performing Lab [facility] POC TELCO R Comment: [facility], [address] [place] [address], [place] [address]; Lab Direct or: Chula Jacob MD; Waived Point of Care Testing - Gabrielle Mueller MD Specimen Anatomical Collection Method Collection Time Receive d Time (Source) Location / / Volume Laterality Blood 12/09/2022 9:36 PM 9:36 ACTIVITIES DIRECTOR SCOUTING PM ACTIVITIES DIRECTOR SCOUTING Roberto Carlos Walsh MD POCT ORDERABLES - DEVICE Performing Organization Address [facility]/ZIP [facility] Phon e Number POC [facility] Unless otherwise noted, [place] [address] lab tests performed by: Division of Pathology and Laboratory Medicine [address] [place] [address] Ammonia Level (12/09/2022 6:01 PM ACTIVITIES DIRECTOR SCOUTING) P athologist Signature Ammonia 18 11 - 51 [facility] mcmol/L [facility] [place] Specimen Anatomical Collection Method Collection Time Receive d Time (Source) Location / / Volume Laterality Blood 12/09/2022 6:01 PM 6:15 ACTIVITIES DIRECTOR SCOUTING PM ACTIVITIES DIRECTOR SCOUTING Tammy Mike MD LAB BLOOD ORDERABLES Performing Organization Address City/State/ZIP Code Phon e Number [facility] Unless otherwise noted, [address] all lab tests performed by: Division of Pathology and Laboratory Medicine Brian LOUIS MD, MDA CHRISTINE: Mutation Analysis Precision Panel Report (12/04/2022 10:56 AM ACTIVITIES DIRECTOR SCOUTING) Specimen (Source) Anatomical Collection Method Collection Time Re ceived Time Location / / Volume Laterality 12/04/2022 10:56 AM ACTIVITIES DIRECTOR SCOUTING Narrative This result has an attachment that is no t available. Lorena DE LA PAZ MOLECULAR BIOMARKERS Performing Organization Address City/[facility]/ZIP Code Phon e Number [facility] Unless otherwise noted, [address] all lab tests performed by: Division of Pathology and Laboratory Medicine Jasmyne Michelle Hodges Solid Tumor Genomic Assay Fusions 2018 Interpretation and Report (12/04/2022 10:56 AM ACTIVITIES DIRECTOR SCOUTING) Specimen Anatomical Collection Method Collection Time Receive d Time (Source) Location / / Volume Laterality 12/04/2022 10:56 12/04/2022 AM ACTIVITIES DIRECTOR SCOUTING 10:56 AM ACTIVITIES DIRECTOR SCOUTING Narrative This result has an attachment that is no t available. Lorena DE LA PAZ MOLECULAR BIOMARKERS Performing Organization Address City/[facility]/ZIP Code Phon e Number [facility] Unless otherwise noted, [address] all lab tests performed by: Division of Pathology and Laboratory Medicine Brian Hodges Molecular Diagnostics Specimen Collection -FFPE (12/04/2022 10:56 AM ACTIVITIES DIRECTOR SCOUTING) Patholo gist Method Time Signature Molecular Yes [place] MD [place] (Received) [facility] Jael Ap Link [id number] [facility] [place] Block Number BLANK [place] (Qualitative) [place] [facility] Outside [id number] [place] MD [place] (Qualitative) [facility] CENTER Specimen Anatomical Collection Method Collection Time Receive d Time (Source) Location / / Volume Laterality FFPE 12/04/2022 10:56 12/04/2022 AM ACTIVITIES DIRECTOR SCOUTING 10:56 AM ACTIVITIES DIRECTOR SCOUTING Lorena ZAPATA COLLECTIO NS Performing Organization Address City/State/ZIP Code Phon e Number [facility] Unless otherwise noted, [place] [address] CENTER all lab tests performed by: Division of Pathology and Laboratory Medicine [facility]5 [facility] MRI Skull Base with and without Contrast (11/30/2022 11:12 AM ACTIVITIES DIRECTOR SCOUTING) Anatomical Region Laterality Modality Head Magnetic Resonance Specimen (Source) Anatomical Collection Method Collection Time Re ceived Time Location / / Volume Laterality 12/01/2022 9:21 AM ACTIVITIES DIRECTOR SCOUTING Impressions 12/01/2022 1:06 PM ACTIVITIES DIRECTOR SCOUTING 1. 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 2. Tumor likely involves the lesser wi ng of the left sphenoid bone. 3. No lateral retropharyngeal or visua lized cervical adenopathy. Narrative 12/01/2022 1:06 PM ACTIVITIES DIRECTOR SCOUTING FULL RESULT: Examination: MRI SKULL BASE WITH [...] Enhanced Initial Treatment Strategy (11/27/2022 3:57 PM ACTIVITIES DIRECTOR SCOUTING) Anatomical Region Laterality Modality Whole Body Positron Emission To mography (PET) Specimen (Source) Anatomical Collection Method Collection Time Re ceived Time Location / / Volume Laterality 11/30/2022 8:31 AM ACTIVITIES DIRECTOR SCOUTING Impressions 11/30/2022 8:38 AM ACTIVITIES DIRECTOR SCOUTING Subtle activity associated with subtle asymmetric fullness in posterior left nasal pharynx is compatible with reported primary tumor. No suspicious activity to suggest regional jeremiah or distant metastases. Narrative 11/30/2022 8:38 AM ACTIVITIES DIRECTOR SCOUTING FULL RESULT: Examination: Contrast-Enhanced FDG PET /CT, [...] ORDERABLES NGS Blood Control (11/26/2022 1:07 PM ACTIVITIES DIRECTOR SCOUTING) athologist Signature Molecular Yes [facility] [place] (Received) Specimen Anatomical Collection Method Collection Time Receive d Time (Source) Location / / Volume Laterality Blood 11/26/2022 1:07 PM 3 9:13 ACTIVITIES DIRECTOR SCOUTING AM ACTIVITIES DIRECTOR SCOUTING Lorena Hdez APRN MDA IP HP MOLECULAR DIAG IF ORDERABLES Performing Organization Address City/State/ZIP Code Phon e Number [facility] Unless otherwise noted, [place] [address] CENTER all lab tests performed by: Division of Pathology and Laboratory Medicine [address] (ABNORMAL) Vitamin D 25OH (11/26/2022 1:07 PM ACTIVITIES DIRECTOR SCOUTING) athologist [facility] Vitamin D 25 OH 21 (L) 30 - 100 [facility] ng/mL Comment: Reference Range: Deficiency: <10 ng/mL Insufficiency: 10-29 ng/mL Sufficiency: 30-100 ng/mL Potential toxicity: >100 ng/mL Testing performed at [facility], [address] [place] [address] Specimen Anatomical Collection Method Collection Time Receive d Time (Source) Location / / Volume Laterality Blood 11/26/2022 1:07 PM 3 1:19 ACTIVITIES DIRECTOR SCOUTING PM ACTIVITIES DIRECTOR SCOUTING Lorena Hdez APRN LAB BLOOD ORDERABLES Performing Organization Address City/[facility]/ZIP Code Phon e Number [address], [facility] [address] (ABNORMAL) Uric Acid (11/26/2022 1:07 PM ACTIVITIES DIRECTOR SCOUTING) [facility] Uric Acid 6.5 (H) 2.4 - 5.7 [facility] mg/dL Comment: [facility], [address] [place] [address] Specimen Anatomical Collection Method Collection Time Receive d Time (Source) Location / / Volume Laterality Blood 11/26/2022 1:07 PM 3 1:19 ACTIVITIES DIRECTOR SCOUTING PM ACTIVITIES DIRECTOR SCOUTING Lorena Hdez APRN LAB BLOOD ORDERABLES Performing Organization Address City/[facility]/ZIP Code Phon e Number [address], [facility] [address] NTRK3 Fusion Material Request (11/26/2022 12:43 PM ACTIVITIES DIRECTOR SCOUTING) Component Value Ref Test Analysis Performed At [facility] gist Range Method Time Signature Archived The test is to be 12/04/2022 [facility] Material performed on 8:01 AM ACTIVITIES DIRECTOR SCOUTING tissue from case [id number]. The case report, slides, and blocks for [...] (Source) Location / / Volume Laterality Tissue specimen 11/26/2022 12:43 11/26/19 (specimen) PM ACTIVITIES DIRECTOR SCOUTING 12:43 PM ACTIVITIES DIRECTOR SCOUTING Lorena Hdez APRN MDA IP AP BIOMARKERS Performing Organization Address City/[facility] Phon e Number [place] [address], [address] MD [id number] Fusion Material Request (11/26/2022 12:43 PM ACTIVITIES DIRECTOR SCOUTING) Component Value Ref Test Analysis Performed At [facility] [email or web address] Method Time Signature Archived The test is to be 12/04/2022 [facility] Material performed on 8:01 AM ACTIVITIES DIRECTOR SCOUTING tissue from case [id number]. The case report, slides, and blocks for [...] (Source) Location / / Volume Laterality Tissue specimen 11/26/2022 12:43 11/26/19 23 (specimen) PM ACTIVITIES DIRECTOR SCOUTING 12:43 PM ACTIVITIES DIRECTOR SCOUTING Lorena Hdez APRN MDA IP AP BIOMARKERS Performing Organization Address City/[facility]/ZIP Code Phon [place] Number [place] [address], [place] [address] Michelle Hodges MD [id number] Fusion Material Request (11/26/2022 12:43 PM ACTIVITIES DIRECTOR SCOUTING) Component Value Ref Test Analysis Performed At [facility] Method Time Signature Archived The test is to be 12/04/2022 [facility] Material performed on 8:01 AM ACTIVITIES DIRECTOR SCOUTING tissue from case [id number]. The case report, slides, and blocks for [...] (Source) Location / / Volume Laterality Tissue specimen 11/26/2022 12:43 11/26/19 (specimen) PM ACTIVITIES DIRECTOR SCOUTING 12:43 PM ACTIVITIES DIRECTOR SCOUTING Lorena Hdez APRN [facility] AP BIOMARKERS Performing Organization Address City/State/ZIP Code Phon e Number [facility] [place] [address], [place] [address] Michelle Hodges MD [id number] Mutation Analysis Material Request (11/26/2022 12:43 PM ACTIVITIES DIRECTOR SCOUTING) Component Value Ref Test Analysis Performed At [facility] Method Time Signature Archived The test is to be 12/04/2022 [facility] Material performed on 8:01 AM ACTIVITIES DIRECTOR SCOUTING tissue from case [id number]. The case report, slides, and blocks for [...] (Source) Location / / Volume Laterality Tissue specimen 11/26/2022 12:43 11/26/19 23 (specimen) PM ACTIVITIES DIRECTOR SCOUTING 12:43 PM ACTIVITIES DIRECTOR SCOUTING Lorena Garza Lemuel ESCALANTE [facility] IP AP BIOMARKERS Performing Organization Address City/[facility]/ZIP Code Phon [place] [address], [place] [address] Michelle Hodges MD ALK Mutation Analysis Material Request (11/26/2022 12:43 PM ACTIVITIES DIRECTOR SCOUTING) Component Value Ref Test Analysis Performed At [facility] Method Time Signature Archived The test is to be 12/04/2022 [facility] Material performed on 8:02 AM ACTIVITIES DIRECTOR SCOUTING tissue from case [id number]. The case report, slides, and blocks for [...] Signature signed by Larissa March 8:02 AM BRNADAN Medrano MD on 12/04/22 8:02 AM Specimen Anatomical Collection Method Collection Time Receive d Time (Source) Location / / Volume Laterality Tissue specimen 11/26/2022 12:43 11/26/19 23 (specimen) PM ACTIVITIES DIRECTOR SCOUTING 12:43 PM ACTIVITIES DIRECTOR SCOUTING Lorena Kayla Hdez APRN [facility] IP AP BIOMARKERS Performing Organization Address [facility] Phon e Number [facility] [place] [address], [place] [address] Michelle Hodges MD MTOR Mutation Material Request (11/26/2022 12:43 PM ACTIVITIES DIRECTOR SCOUTING) Component Value Ref Test Analysis Performed At [facility] Method Time Signature Archived The test is to be 12/04/2022 [facility] Material performed on 8:01 AM ACTIVITIES DIRECTOR SCOUTING tissue from case [id number]. The case report, slides, and blocks for [...] [facility] Signature signed by Larissa Carr:01 AM BRANDAN Medrano MD on 12/04/22 8:01 AM Specimen Anatomical Collection Method Collection Time Receive d Time (Source) Location / / Volume Laterality Tissue specimen 11/26/2022 12:43 11/26/19 23 (specimen) PM ACTIVITIES DIRECTOR SCOUTING 12:43 PM ACTIVITIES DIRECTOR SCOUTING Lorena Hdez APRN [facility] IP AP BIOMARKERS Performing Organization Address City/[facility] Phon e Number [facility] [place] [place] [address], [place] [address] Michelle Hodges MD PTEN Mutation Material Request (11/26/2022 12:43 PM ACTIVITIES DIRECTOR SCOUTING) Component Value Ref Test Analysis Performed At [facility] Method Time Signature Archived The test is to be 12/04/2022 [facility] Material performed on 8:02 AM ACTIVITIES DIRECTOR SCOUTING tissue from case [id number]. The case report, slides, and blocks for the cited accession were retrieved from archives. The pathologist examined the candidate H&E slide and selected the block appropriate to the specifications of the ordered molecular analysis. Unstained slides and H&E slide were prepared and forwarded to [facility] where the subject molecular test will be performed. Results will be reported separately. Pathologist Electronically 12/04/2022 [facility] Signature signed by Larissa March 8:02 AM BRANDAN Medrano MD on 12/04/22 8:02 AM Specimen Anatomical Collection Method Collection Time Receive d Time (Source) Location / / Volume Laterality Tissue specimen 11/26/2022 12:43 11/26/19 23 (specimen) PM ACTIVITIES DIRECTOR SCOUTING 12:43 PM ACTIVITIES DIRECTOR SCOUTING Lorena Hdez APRN [facility] IP AP BIOMARKERS Performing Organization Address City/[facility] Phon e Number [facility] [place] [address], [place] [address] Michelle Hodges MD EGFR Mutation Material Request (11/26/2022 12:43 PM ACTIVITIES DIRECTOR SCOUTING) Component Value Ref Test Analysis Performed At [facility] Method Time Signature Archived The test is to be 12/04/2022 [facility] Material performed on 8:02 AM ACTIVITIES DIRECTOR SCOUTING tissue from case [id number]. The case report, slides, and blocks for [...] (Source) Location / / Volume Laterality Tissue specimen 11/26/2022 12:43 11/26/19 23 (specimen) PM ACTIVITIES DIRECTOR SCOUTING 12:43 PM ACTIVITIES DIRECTOR SCOUTING Lorena Hdez APRN [facility] IP AP BIOMARKERS Performing Organization Address City/[facility]/ZIP Code Phon e Number [facility] [place] [address], [place] [address] Michelle Snyder IHC PD-L1 Material Request (11/26/2022 12:43 PM ACTIVITIES DIRECTOR SCOUTING) Specimen Anatomical Collection Method Collection Time Receive d Time (Source) Location / / Volume Laterality Tissue specimen 11/26/2022 12:43 11/26/19 23 (specimen) PM ACTIVITIES DIRECTOR SCOUTING 12:43 PM ACTIVITIES DIRECTOR SCOUTING Lorena Hdez APRN [facility] IP AP BIOMARKERS Performing Organization Address City/[facility]/ZIP Code Phon [place] [address], [place] [address] Michelle Snyder IHC HER2/arcenio Material Request (11/26/2022 12:43 PM ACTIVITIES DIRECTOR SCOUTING) Specimen Anatomical Collection Method Collection Time Receive d Time (Source) Location / / Volume Laterality Tissue specimen 11/26/2022 12:43 11/26/19 23 (specimen) PM ACTIVITIES DIRECTOR SCOUTING 12:43 PM ACTIVITIES DIRECTOR SCOUTING Lorena Hdez APRN [facility] IP AP BIOMARKERS Performing Organization Address City/[facility]/ZIP Code Phon [place] [address], [place] [address] Milton Snyder Testosterone Level (11/17/2022 12:11 PM ACTIVITIES DIRECTOR SCOUTING) athologist Signature Testoster Tot <3 3 - 41 [place] ng/dL Comment: Reference Ranges: Male: Age 20 - 49 249 - 836 Age >=50 1 93 - 740 Female: Age 20 - 49 8 - 48 Age >=50 3 - 41 Testing performed at [facility] [place] [address] Specimen Anatomical Collection Method Collection Time Receive d Time (Source) Location / / Volume Laterality Blood 11/17/2022 12:11 11/17/2022 PM ACTIVITIES DIRECTOR SCOUTING 12:12 PM ACTIVITIES DIRECTOR SCOUTING Red Berman CLINICAL CARE LEADER LAB BLOOD ORDERABLES Performing Organization Address City/State/[place] [address] [place] [address] [facility], [address] [address] Pathology Outside Interpretation (10/16/2022) Component Value Ref Test Analysis Performed Pathologis t Range Method Time At Signature Materials Accession#, Stained, Block, Unstained Collected Received 11/27/2022 [facility] Received A. 22:[id number], 7 SS, 1 BLOCKS, 0 USS 10/16/2022 11/24/2022 5:08 PM ACTIVITIES DIRECTOR SCOUTING Addendum 1 At the request of the donell machado physician the following studies were performed and interpreted at [facility]. 11/27/2022 [facility] Addendum 5:08 PM electronic ally The tumor cells are negative for Her2 (0%) by immunohi stochemical analysis. ACTIVITIES DIRECTOR SCOUTING signed by Gerald, The tumor cells are positive for cleaved NOTCH1 (< 70% ) by immunohistochemical analysis. MD Ashleigh on 11/27/2022 at PD-L1 (Clone 22C3, [employer]) Combine d Positive Score (CPS): is less than 1 5:08 PM Assay Information: This assa y is manufactured by [employer] and uses a monoclonal anti-PD-L1, clone 22C3. It is performed on formalin-fixed paraffin- embedded tissue using an [employer]ako autostainer a nd polymer based detection k it, as specified by the movement therapist. It is approved for use as a community engagement specialist diagnostic for specific therapies on certain tumor [...] is defined as CPS 100. Diagnosis Outside (22:[id number], 7 SS, 1 BLOCKS, 0 USS, colle cted on 10/16/2022): 11/27/2022 [facility] Electronically 5:08 PM signed by Nasopharynx, biopsy: ACTIVITIES DIRECTOR SCOUTING Gerald, ADENOID CYSTIC CARCINOMA, CRIBRIFORM TYPE see comment MD Ashleigh on 11/26/2022 at W/SALEEM 9:43 AM Comment Submitted 11/27/2022 [facility] immunohistochemical 5:08 PM stains performed by ACTIVITIES DIRECTOR SCOUTING referring institution show that CK7 highlights the epithelial cells, and p63 and p40 highlights the myoepithelial cells. The morphology and immunophenotype is supportive of this classification. Biomarker Tumor block: 11/27/2022 [facility] Block(s) [id number] 5:08 PM ACTIVITIES DIRECTOR SCOUTING Disclaimer "Some tests reported 11/27/2022 [facility] here may have been 5:08 PM developed and ACTIVITIES DIRECTOR SCOUTING performance characteristics determined by [facility]. These tests have not been specifically cleared or approved by the U.S. Food and Drug Administration. If applicable, controls were reviewed and showed appropriate reactivity." Specimen (Source) Anatomical Collection Method Collection Time Re ceived Time Location / / Volume Laterality Tissue specimen 10/16/2022 11/24/2022 3 :02 (specimen) PM ACTIVITIES DIRECTOR SCOUTING Alexa Alvarez MD LAB PATHOLOGY ORDERABLES Performing Organization Address City/State/ZIP Code Phon e Number [facility] [place] [address], [address] [facility] 09/03/2022 Insurance Payer Benefit Plan / Subscriber ID Effective Phone Address T ype Group Dates MEDICARE MEDICARE PART A [id number] 2010-Pres [phone] [place]OV[place] Medicare AND B ent 782 SOLUTIONS [address] [facility] [place] [id number] [place] [id number] 2022-Pres [address] Medicaid TRADITIONAL TRADITIONAL ent [id number] [place] [address] Advance Directives Code Status Date Activated Date Inactivated Comments Full Code 02/06/2023 1:33 AM 02/16/2023 6:41 PM Code Status Date Activated Date Inactivated Comments Full Code 01/26/2023 5:50 PM 02/01/2023 8:34 PM Full Code 01/11/2023 10:19 PM 01/18/2023 9:39 PM Full Code 12/09/2022 10:42 PM 12/15/2022 9:30 PM Care Teams Trailer Park Manager Relationship Specialty Start Date End Date Bina Obando PCP - External Otolaryngology 11/12/22 MD Joana Referring [address] [place] [address] Kenya Agarwal MD PCP - General Head and Neck Surgery 11/12/[address] [place] [id number] [address] [facility] 11/26/[address] [place], [place] [address] Randall Sheriff [facility] 11/26/22 MD Maciej [address] [place], [place] [id number] Vignesh Waddell, Pulmonary Medicine 11/26/22 [address] [place] [address] Naa Miller Cardiology 11/26/22 MD Emerald [address] [address] Tapan Harper Gastroenterology 11/26/22 MD Rosalio [address] [place] [address] Rafael Rosas, Ophthalmology 11/26/22 [address] [place] [address] Suzanne Mcgrath, Consulting Physician Ophthalmology 12/29/[address] [place] [address] Winter Luu, Consulting Physician Radiation Oncology [address] [place] [address] Vaibhav Rosario, Consulting Physician Medical Oncology 11/26/[address] [place] [id number] Williams, Consulting Physician Pain Management 01/20/23 MD Rogerio [address] [place] [address] Rosana Harkins MD Consulting Physician Hematology and Oncology 03/31/[address] [place] [id number] No Andrade, Consulting Physician Endocrinology 09/01/[address] [place] [address]
[2023-09-03] MEDS ORDERED: ONDANSETRON 4 MG (ODT) TAB ONE (15:30)
[2023-09-03] MEDS ORDERED: LACTULOSE 20 GM/30 ML UCUP ONE (15:53)
--- NOTE | 2023-09-03 16:01 | RAD REPORT ---
EXAM DESCRIPTION: RAD - Abdomen 1 View (KUB) - 09/03/2023 3:47 pm CLINICAL HISTORY: Abdomen pain/constipation FINDINGS: The bowel gas pattern is unremarkable. Moderate to large amount of stool throughout the colon No significant abnormal calcification is displayed
[2023-09-03] MEDS ORDERED: FLEET ENEMA ADULT PR ONE (16:41)
--- NOTE | 2023-09-03 18:17 | ER ---
Nurse's Notes [facility] Name: Maria De Jesus Acosta Age: 58 yrs Sex: Female : 1965 Arrival Date: 09/03/2023 Time: 14:17 Bed 20 Private MD: Trent Irving H Diagnosis: Constipation Presentation: 09/03 14:48 Chief complaint: N/V, chills, abdominal pain, and constipation. Last BM was 9 days ago. hb Coronavirus screen: At this time, the client does not indicate any symptoms associated with coronavirus-19. Ebola Screen: No symptoms or risks identified at this time. Initial Sepsis Screen: Does the patient meet any 2 criteria? No. Patient's initial sepsis screen is negative. Does the patient have a suspected source of infection? No. Patient's initial sepsis screen is negative. Risk Assessment: Do you want to hurt yourself or someone else? Patient reports no desire to harm self or others. Onset of symptoms was August 24, 2023. 14:48 Method Of Arrival: Ambulatory hb 14:48 Acuity: EMERALD 3 hb Triage Assessment: 14:50 General: Appears uncomfortable, Behavior is cooperative. eh3 Historical: - Allergies: 14:50 Doxycycline; hb 14:50 kiwi; hb 14:50 metoclopramide HCl; hb 14:50 Reglan; hb 14:50 orange juice; hb - PMHx: 14:50 CHF; COPD; Asthma; Diabetes - NIDDM; Hypertension; Nasal cancer; Crohn's; hb - PSHx: 14:50 Appendectomy; Ligation of fallopian tube; Cholecystectomy; partial hysterectomy; hb Shoulder; - Immunization history:: Adult Immunizations up to date. - Social history:: Smoking status: Patient denies any tobacco usage or history of. Screenin:50 [facility] ED Fall Risk Assessment (Adult) Score/Fall Risk Level 0 - 2 = Low Risk. Abuse eh3 screen: Denies threats or abuse. Denies injuries from another. Nutritional screening: No deficits noted. Tuberculosis screening: No symptoms or risk factors identified. Assessment: 14:50 General: Appears in no apparent distress. uncomfortable, Behavior is cooperative, eh3 restless. Pain: Complains of pain in abdomen. Neuro: Level of Consciousness is awake, alert, obeys commands, Oriented to person, place, time, situation. Cardiovascular: Capillary refill < 3 seconds Patient's skin is warm and dry. Respiratory: Airway is patent Respiratory effort is even, unlabored, Respiratory pattern is regular, symmetrical. GI: Abdomen is round Bowel sounds hypoactive in right lower quadrant and left lower quadrant Abd is soft X 4 quads Abdomen is tender to palpation X 4 quads. Derm: Skin is pink, warm \T\ dry. Musculoskeletal: Circulation, motion, and sensation intact. Vital Signs: 14:48 BP 136 / 89; Pulse 80; Resp 18; Temp 97.7(TE); Pulse Ox 94% on R/A; Weight 136.08 kg; hb Height 5 ft. 3 in. ; Pain 8/10; 15:30 BP 123 / 71; Pulse 80; Resp 18; Pulse Ox 95% on R/A; eh3 16:30 BP 165 / 95; Pulse 71; Resp 18; Pulse Ox 95% on R/A; eh3 17:30 BP 144 / 127; Pulse 90; Resp 18; Pulse Ox 95% on R/A; eh3 18:30 BP 138 / 88; Pulse 87; Resp 18; Pulse Ox 95% on R/A; eh3 14:48 Body Mass Index 53.14 (136.08 kg, 160.02 cm) hb 14:48 Pain Scale: Adult hb ED Course: 14:18 Patient arrived in ED. rg4 14:18 Trent Irving DO is Private Physician. rg4 14:18 Dontae Parkinson MD is Attending Physician. cp3 14:50 Triage completed. hb 14:50 Arm band placed on. hb 14:50 Patient has correct armband on for positive identification. Placed in gown. Bed in low eh3 position. Call light in reach. Side rails up X2. Provided Education on: use of call gudino. Pulse ox on. NIBP on. 15:00 Monet Ovalles, JCARLOS is Primary Nurse. eh3 15:49 Abdomen 1 View (KUB) XRAY In Process Unspecified. EDMS 18:16 Trent Irving DO is Referral Physician. cp3 19:15 No provider procedures requiring assistance completed. Patient did not have IV access eh3 during this emergency room visit. Administered Medications: 15:10 Drug: Ondansetron PO 4 mg PO once Route: PO; eh3 16:00 Follow up: Response: No adverse reaction eh3 15:45 Drug: Lactulose PO 20 grams 30 ml PO once Volume: 30 ml; Route: PO; eh3 17:00 Follow up: Response: No adverse reaction eh3 16:30 Drug: Fleet Enema LA 133 ml LA once; may repeat once Route: LA; eh3 18:00 Follow up: Response: No adverse reaction eh3 19:08 Not Given (Physician Discretion): [id number] mg IVP once eh3 19:13 Drug: Promethazine IVP 25 mg IVP once {Note: administered IM left ventrogluteal.} eh3 Route: IVP; Site: Other; 19:30 Follow up: Response: No adverse reaction eh3 Medication: 19:00 VIS not applicable for this client. eh3 Outcome: 18:16 Discharge ordered by . cp3 19:30 Discharged to home ambulatory, eh3 19:30 Condition: stable 19:30 Discharge instructions given to patient, Instructed on discharge instructions, follow up and referral plans. medication usage, Demonstrated understanding of instructions, follow-up care, medications, Prescriptions given X 1, 19:32 Patient left the ED. eh3 Signatures: Dispatcher [employer] EDDontae Campo MD MD cp3 Azul Ta, Blanca Seo RN 4 Monet Ovalles RN RN 3 Corrections: (The following items were deleted from the chart) 19:13 19:08 Promethazine IVP 25 mg IVP in Other; administered eh3 3
--- NOTE | 2023-09-03 18:17 | EDPHYS ---
Physician Documentation [facility] Name: Maria De Jesus Acosta Age: 58 yrs Sex: Female : 1965 Arrival Date: 09/03/2023 Time: 14:17 Bed 20 Private MD: Trent Irving H ED Physician Dontae Parkinson HPI: 09/03 16:19 This 58 yrs old Female presents to ER via Ambulatory with complaints of cp3 Constipation. 16:19 Patient is a 58-year-old female with a history of CHF, COPD, asthma, diabetes, cp3 hypertension, Crohn's disease, gastroparesis, with chronic constipation who presents to the ED secondary to abdominal discomfort secondary to constipation for the last 2 weeks. + nausea + vomiting + abdominal cramping. Historical: - Allergies: 14:50 Doxycycline; hb 14:50 kiwi; hb 14:50 metoclopramide HCl; hb 14:50 Reglan; hb 14:50 orange juice; hb - PMHx: 14:50 CHF; COPD; Asthma; Diabetes - NIDDM; Hypertension; Nasal cancer; Crohn's; hb - PSHx: 14:50 Appendectomy; Ligation of fallopian tube; Cholecystectomy; partial hysterectomy; hb Shoulder; - Immunization history:: Adult Immunizations up to date. - Social history:: Smoking status: Patient denies any tobacco usage or history of. ROS: 16:19 Constitutional: Negative for fever, chills, and weight loss, Eyes: Negative for injury, cp3 pain, redness, and discharge, ENT: Negative for injury, pain, and discharge, Neck: Negative for injury, pain, and swelling, Cardiovascular: Negative for chest pain, palpitations, and edema, Respiratory: Negative for shortness of breath, cough, wheezing, and pleuritic chest pain, Back: Negative for injury and pain, : Negative for injury, bleeding, discharge, and swelling, MS/Extremity: Negative for injury and deformity, Skin: Negative for injury, rash, and discoloration, Neuro: Negative for headache, weakness, numbness, tingling, and seizure, Psych: Negative for depression, anxiety, suicide ideation, homicidal ideation, and hallucinations, Allergy/Immunology: Negative for hives, rash, and allergies, Endocrine: Negative for neck swelling, polydipsia, polyuria, polyphagia, and marked weight changes, Hematologic/Lymphatic: Negative for swollen nodes, abnormal bleeding, and unusual bruising, 16:19 Abdomen/GI: Positive for nausea and vomiting, constipation, Exam: 16:19 Constitutional: This is a well developed, well nourished patient who is awake, alert, cp3 and in no acute distress. Head/Face: Normocephalic, atraumatic. Eyes: Pupils equal round and reactive to light, extra-ocular motions intact. Lids and lashes normal. Conjunctiva and sclera are non-icteric and not injected. Cornea within normal limits. Periorbital areas with no swelling, redness, or edema. ENT: Nares patent. No nasal discharge, no septal abnormalities noted. Tympanic membranes are normal and external auditory canals are clear. Oropharynx with no redness, swelling, or masses, exudates, or evidence of obstruction, uvula midline. Mucous membranes moist. Neck: Trachea midline, no thyromegaly or masses palpated, and no cervical lymphadenopathy. Supple, full range of motion without nuchal rigidity, or vertebral point tenderness. No Meningismus. Chest/axilla: Normal chest wall appearance and motion. Nontender with no deformity. No lesions are appreciated. Cardiovascular: Regular rate and rhythm with a normal S1 and S2. No gallops, murmurs, or rubs. Normal PMI, no JVD. No pulse deficits. Respiratory: Lungs have equal breath sounds bilaterally, clear to auscultation and percussion. No rales, rhonchi or wheezes noted. No increased work of breathing, no retractions or nasal flaring. Back: No spinal tenderness. No costovertebral tenderness. Full range of motion. Female : Normal external genitalia. Skin: Warm, dry with normal turgor. Normal color with no rashes, no lesions, and no evidence of cellulitis. MS/ Extremity: Pulses equal, no cyanosis. Neurovascular intact. Full, normal range of motion. Neuro: Awake and alert, GCS 15, oriented to person, place, time, and situation. Cranial nerves II-XII grossly intact. Motor strength 5/5 in all extremities. Sensory grossly intact. Cerebellar exam normal. Normal gait. Psych: Awake, alert, with orientation to person, place and time. Behavior, mood, and affect are within normal limits. 16:19 Abdomen/GI: Inspection: abdomen appears normal, Palpation: mild abdominal tenderness, in the , Vital Signs: 14:48 BP 136 / 89; Pulse 80; Resp 18; Temp 97.7(TE); Pulse Ox 94% on R/A; Weight 136.08 kg; hb Height 5 ft. 3 in. ; Pain 8/10; 15:30 BP 123 / 71; Pulse 80; Resp 18; Pulse Ox 95% on R/A; eh3 16:30 BP 165 / 95; Pulse 71; Resp 18; Pulse Ox 95% on R/A; eh3 17:30 BP 144 / 127; Pulse 90; Resp 18; Pulse Ox 95% on R/A; eh3 18:30 BP 138 / 88; Pulse 87; Resp 18; Pulse Ox 95% on R/A; eh3 14:48 Body Mass Index 53.14 (136.08 kg, 160.02 cm) hb 14:48 Pain Scale: Adult hb MDM: 14:19 Patient medically screened. cp3 18:15 Differential diagnosis: bowel obstruction, non-specific abd pain, constpation. Data cp3 reviewed: vital signs, nurses notes, radiologic studies, plain films. Consideration of Admission/Observation Escalation of care including admission/observation considered. no emergent indication for hospitalization. I considered the following discharge prescriptions or medication management in the emergency department Medications were administered in the Emergency Department. See MAR. ED course: patient improved with lactulose and fleets. 18:17 Independent interpretation of the following test(s) in the Emergency Department X-Ray: cp3 My interpretation is kub with constpation. 18:53 Management of patient was discussed with the following: patient endorsed she sees dr ayanna horn. called dr horn and advised she is not a current patinet. ed outpatient records reviewed patient with multiple ec visits for the same. 09/03 14:58 Order name: Abdomen 1 View (KUB) XRAY; Complete Time: 16:24 3 09/03 16:24 Interpretation: No acute disease except. cp3 Administered Medications: 15:10 Drug: Ondansetron PO 4 mg PO once Route: PO; 3 16:00 Follow up: Response: No adverse reaction 3 15:45 Drug: Lactulose PO 20 grams 30 ml PO once Volume: 30 ml; Route: PO; 3 17:00 Follow up: Response: No adverse reaction 3 16:30 Drug: Fleet Enema FL 133 ml FL once; may repeat once Route: FL; eh3 18:00 Follow up: Response: No adverse reaction eh3 19:08 Not Given (Physician Discretion): [id number] mg IVP once eh3 19:13 Drug: Promethazine IVP 25 mg IVP once {Note: administered IM left ventrogluteal.} eh3 Route: IVP; Site: Other; 19:30 Follow up: Response: No adverse reaction eh3 Disposition Summary: 09/03/23 18:16 Discharge Ordered Notes: Location: Home cp3 Condition: Stable cp3 Problem: new cp3 Symptoms: are unchanged cp3 Diagnosis - Constipation cp3 Followup: cp3 - With: Trent Irving DO - When: Upon discharge from the Emergency Department - Reason: Re-evaluation by your physician Discharge Instructions: - Discharge Summary Sheet cp3 - Constipation, Adult, [id number] cp3 Forms: - Medication Reconciliation Form cp3 - Thank You Letter cp3 - Antibiotic Education cp3 - Prescription Opioid Use cp3 - Patient Portal Instructions cp3 - Leadership Thank You Letter cp3 Prescriptions: - Lactulose 10 gram/15 mL Oral solution - take 30 milliliters ORAL route every 8 hours for constipation. take tid until cp3 bowel movement achieved; 300 milliliter; Refills: 0, Product Selection Permitted Signatures: Dispatcher [employer] Dontae Ramos MD MD 3 Azul Ta RN RN Monet Ovalles RN RN 3
[2023-09-03] MEDS ORDERED: PROMETHAZINE INJ 25 MG/ML AMP ONE (19:20)
[2023-09-03 19:37] VITALS: TEMP 97.7
[2023-09-03 19:38] VITALS: O2SAT 95
[2023-09-03 19:42] VITALS: BP 138/88
== END 2023-09-03 19:32 | disposition home or self-care (01) ==
LOC: ER 14:17
DX: K59.00 Constipation, unspecified (principal); Z88.1 Allergy status to other antibiotic agents; Z88.8 Allergy status to other drugs, medicaments and biological substances; Z91.018 Allergy to other foods
CPT/HCPCS: 74018; 96374; 99284; J2550; Q0162

== ENCOUNTER 2023-09-25 10:52 | Emergency (ER) | payer OTHER ==
--- OUTSIDE RECORDS SUMMARY | 2023-09-25 11:03 | XMS REPORT | Clinical Summary ---
:1965 Author Organization [facility] MD Suraj bates [facility] Center Address [address] [place] [address] Care Team Providers Name Role Phone Bina Obando MD Unavailable Kenya Agarwal MD Primary Care Provider Trent Irving MD Unavailable Randall Sheriff MD Unavailable Vignesh Waddell MD Unavailable Naa Miller MD Unavailable Garnet HealthTapan MD Unavailable Rafael Rosas MD Unavailable Suzanne [...] procedure Metoclopramide Hcl Other (See 10/16/2022 Comments) Glen Juice Nausea And Low 04/18/2021 Vomiting, GI [...] Active (Easy Comfort Pen insulin 4 times Callao) 31 gauge x a day 03/16" ndleIndications: [...] 3 diabetes mellitus doses, notify without complication 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 and we [...] ndle 23 rizatriptan 0 08/25/202212/30 Discont inued (MAXALT-PHOTOGRAPHIC DOUBLE) 5 mg 02/18 (E rror) disintegrating tablet [...] basilic veins, Thrombosis of left cephalic vein, termite 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 nasopharyn x, NOS [address] [address] 09/13/2023 Travel 09/10/2023 Telephone Lindy Flynn [place] - BALJINDER Sotelo Radiation Oncology [address] [place] [address] 08/30/2023 Procedure visit Endocrine Center Skyla, Type 2 diabetes mellitus wit h hyperglycemia (Primary Dx); 10:30 AM Brian Gomes MD Current use of insulin; CDT Blvd Hemoglobin A1c greater than 10 percent indicating poor diabetic control; Main Bldg, 6th Alanine amino transferase above reference range; Floor Adult BMI 60-69.9 [place] [address] 08/16/2023 Refill Lorena James Adenoid cysti c [place] Kayla, HEAD PAPER TESTER carcinoma of [address] 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 CDT Blvd Main Bldg, 6th [place] [address] 07/22/2023 Documentation Head and Neck [facility] - Bridget Lund, Ophthalmology RN [address] Main Bldg, 9th [place] [address] 07/20/2023 Refill Endocrine Center Jose, Abnormal cortisol [address] Seliece, HEAD PAPER TESTER Blvd Main Bldg, 6th [place] [address] 07/06/2023 Telephone Endocrine Center Garcia, [address] Seliece, HEAD PAPER TESTER Blvd Main Bldg, 6th [place] [address] 07/02/2023 Orders Only Head and Neck McAnulty, Adenocarcinoma of Center - Surgical Red M, nasopharyn x (Primary Oncology HEAD PAPER TESTER Dx) [address] Main Bldg, 10th Floor, [place] [address] 06/22/2023 Procedure visit Endocrine [facility], Type 2 diabetes 10:00 AM Brian Otto MD mellitus with CDT Blvd hyperglycemia Main Bldg, 6th (Primary Dx) [place] [address] 06/22/2023 [facility] Type 2 diabetes Biran Otto MD mellitus with Blvd hyperglycemia Main Bldg, 6th (Primary Dx) [place] [address] 06/21/2023 Telephone Endocrine Center Moses Angela, 9:00 AM [address] HEAD PAPER TESTER CDT Blvd Needle, Freya Main Bldg, 6th A, [place] [address] 06/17/2023 Treatment Monico Castellano, Dysarthria (P rimary Dx); 1:00 PM Linsey Larsen MD Oropharyngeal dysphagia CDT Speech Pathology Sher, [address] [place] [address], [facility] [address] 06/17/2023 Documentation MD Kulwant Olivarez, Linsey Scruggs [facility] Speech Pathology [address] [place] [address] 06/17/2023 Documentation MD Kulwant Olivarez, [facility], [facility] Speech Pathology [address] [place] [address] 06/17/2023 Travel 06/16/2023 Telephone [facility] - Surgical Red M, Oncology HEAD PAPER TESTER [address] Parmar Main Bldg, 10th Floor, [place] [address] 06/08/2023 Documentation Endocrine Center [facility], [address] JCARLOS Fernandez Main Bldg, 6th [place] [address] 06/06/2023 Refill Lorena James Adenoid cysti c [facility], HEAD PAPER TESTER carcinoma of [address] [place] [address] nasopharyn x, [place] [address] 05/26/2023 Telemedicine Endocrine Center Jose, Type 2 diabetes mellitus wit h hyperglycemia (Primary Dx); 3:30 PM Brian Calixto APRN Abnormal el isol CDT Blellie Main Bldg, 6th [place] [address] 05/26/2023 Telephone Endocrine Center Garcia, [address] BORIS Coombs Main Bldg, 6th [place] [address] 05/26/2023 Telephone Endocrine Center Jenny, [address] Main Bldg, 6th [place] [address] 05/25/2023 Orders Only Endocrine Center Garcia, Type 2 diabetes mellitus wit h hyperglycemia (Primary Dx); Brian Calixto APRN Abnormal el isol; Blvd Long-term (current) use of i nsulin Main Bldg, 6th [place] [address] 05/24/2023 Telephone Endocrine Center Raymond, 11:00 AM Brian Otto MD CDT Blvd Freya Kimball, 6th A, [place] [address] 05/21/2023 Documentation Endocrine Center Akil Edwards [address]CARLOS Gates Main Bldg, 6th [place] [address] 05/21/2023 Documentation Pain Management Randall Ferrer [facility] [address] Parm[address] Main Bldg, 4th [place] [address] 05/18/2023 Telephone Endocrine Center [facility], 2:00 PM MD OTONIEL Foy Pamela Main Bldg, 6th A, [place] [address] 05/11/2023 Telephone Endocrine Center Jose [facility]5 BORIS Coombs Main Bldg, 6th [place] [address] 05/02/2023 Telephone Endocrine Center [facility], [facility] MD Agata English Main Bldg, 6th [place] [address] 04/22/2023 Follow-Up MD Kulwant Power, Adenoid cystic 3:40 PM Linsey Esposito MD carcinoma of [facility] Thoracic Medicine nasopharynx, NOS [address] [place] [address] 04/22/2023 Follow-Up Winter Shaw Adenoid cystic 2:30 PM Linsey Rubalcava MD carcinoma of T Radiation nasopharynx, NO S Oncology [address] [address] 04/22/2023 Ancillary Procedure Winter Shaw Adenoid cystic 12:15 PM Linsey Rubalcava MD carcinoma of [facility] [address] [facility] nasopharyn x, NOS [address] [address] 04/22/2023 Travel 04/09/2023 Refill Pain Management Martha, Chronic pain Center JCARLOS Tracey [address] Parmar Main Bldg, 4th [place] [address] 04/08/2023 Refill Pain Management Miguel Gordon in Center MD Rebecca [address] Main Bldg, 4th [place] [address] 03/31/2023 Office Visit Internal Medicine Rosana Harkins MD half-way use of anticoagulant (Primary Dx); 10:30 AM Center - Adenoid cystic carcinoma of nasopharynx, NOS; CDT Hematology Deep venous thrombosis <Unsp ecified side>; [address] Acute thrombos is of right axillary vein; Blvd Bilateral acute thrombosis o f basilic veins; [facility], 6th Thrombosis of left cephalic [place] [address] 03/31/2023 Travel 03/26/2023 Telephone MD Blum [facility] Gerem[facility] Singer, RN Medicine [address] [place] [address] [address] [place] [address] 03/23/2023 Telephone Lindy Flynn [place] BALJINDER Todd Radiation Oncology [address] [place] [address] 03/23/2023 Orders Only Lindy Flynn [place] BALJINDER Todd Radiation Oncology [address] [place] [address] 03/19/2023 Telemedicine Endocrine Center Angela Lopes, Type 2 diabetes 1:30 PM [address] HEAD PAPER TESTER mellitus witho ut CDT Blvd complication (Primary Main Bldg, 6th Dx) [place] [address] 03/18/2023 Telephone MD Kulwant Power [place] MD Vaibhav [address] [place] [address] 03/16/2023 Orders Only Lorena James Adenoid cysti c [place] Kayla, HEAD PAPER TESTER carcinoma of [address] [facility] nasopharyn x, NOS South (Primary Dx) [place] [address] 03/12/2023 Nutrition Clinical Kenya Agarwal 11:00 AM Mendez Smith MD CDT For your Lian Jaramillo, RD appointment location directions please call: 03/11/2023 Infusion MD Kulwant Hdez Lorena Adenoid cysti c 1:30 PM [facility], HEAD PAPER TESTER carcinoma of CDT Infusion nasopharynx, NOS [address] [facility] (Primary D x) South 4th [place] [address] 03/11/2023 Follow-Up Lorena James Adenoid cysti c 11:20 AM [facility], HEAD PAPER TESTER carcinoma of CDT [facility] [facility] (Primary Dx) [place] [address] 03/11/2023 Travel 03/09/2023 [facility] [address] [place] [address] 03/04/2023 Nutrition Clinical Kenya Agarwal 10:00 AM Mendez Smith MD CDT For your Lian Jaramillo, RD appointment location directions please call: 03/04/2023 Orders Only MD [facility] TESTER 0 [place] [address] 03/04/2023 Telephone MD Kulwant Kwon [place] - Tita Mayorga, Thoracic Medicine RN 0 [place] [address] 03/04/2023 Orders Only Pain Management Miguel Gordon [facility] Kandice Fernandez MD pain (Primary Dx) [address] Main Bldg, 4th [place] [address] 03/03/2023 Follow-Up MD Kulwant Power, Adenoid cystic carcinoma of nasopharynx, NOS; 11:40 AM Linsey Esposito MD Deep venous th rombosis <Unspecified side> CDT Thoracic Medicine [address] [place] [address] 03/03/2023 Refill Pain Management Tyrell Chronic pain Center [facility], HEAD PAPER TESTER [address] Main Bldg, 4th [place] [address] 03/03/2023 Travel 03/02/2023 Refill Pain Management [place] Chronic pain [facility], HEAD PAPER TESTER [address] Main Bldg, 4th [place] [address] 02/26/2023 Telemedicine MD Blum in Miguel Gordon Chronic mehnaz n (Primary 8:30 AM She[place] - Geremias Fernandez MD Dx) CDT Medicine 132[address] [facility] [address] [place] [address] 02/25/2023 Nutrition Clinical Kenya Agarwal 10:00 AM Mendez Smith MD CDT For your Lian Jaramillo, RD appointment location directions please call: 02/19/2023 Telephone Anthony Saldaña RN Radiation Oncology [address] [address] 02/18/2023 Nutrition Kenya Osullivan 10:00 AM Mendez Smith MD CDT For your Lian Jaramillo, RD appointment location directions please call: 02/12/2023 Clinical Support Winter Shaw 4:15 PM Linsey Rubalcava MD CDT Radiation Oncology [address] [address] 02/12/2023 Hospital Encounter Radiation Keyna Agarwal Discharge 7:00 AM Treatment Kandice Smith MD Disposition: Home CDT - [address] 02/12/2023 Blvd 11:59 PM Main [place]ldg [place] [address] 02/12/2023 Documentation Radiation [facility] MD Gini 15[address] [facility] Main [place] [address] 02/12/2023 Orders Only Winter Shaw Adenocarcinoma of nasopharynx (Primary Dx); [place] Suzie Rubalcava MD Adenoid cystic carcinoma of nasopharynx, NOS Radiation Oncology 22[address] [facility] 1st [place] [address] 02/12/2023 Orders Only Pain Management Bruce, Neoplasm rel ated pain (acute) (chronic) (Primary Dx); [place] MD Elvis Chronic pain [address] [facility] Main Bldg, 4th [place] [address] 02/10/2023 Orders Only Head and Neck Charla Solis, Oropharyngea l Center - Speech CCC-INTEGRITY ANALYST dysphagia (P rimary Pathology Dx) [address] [facility]ldg, 10th [place] [address] 02/08/2023 Hospital Encounter Radiation Kenya Agarwal Discharge 6:00 AM Treatment Center MD Sarah Disposition: Home CDT - [address] 02/08/2023 Blvd 11:59 PM Main Bldg [place] [address] 02/06/2023 Travel 02/05/2023 Hospital Encounter MAIN 21SW Deneen Guevara B, Intractable nausea and vomit ing (Primary Dx); 4:49 PM [facility] Type 2 diabetes mellitus with hyperglyce moncho; CDT - Tracie Watgeorgea, Swallowing painful; 02/16/2023 [place] [address] MD Felisa Dyspnea; 4:40 PM [phone] Brooks, Adenoid cystic carcinoma of nasopharynx, NOS; CDT MD Romana Chronic pain; Amanda Proctor, Deep venous th rombosis <Unspecified side>; Type 2 diabetes mellitus without complic ation; Soria, Son Shortness of br flor Cisneros MD Discharge Disposition: Home Derrick Gill MD Mohammed, MD Phyllis See Michelle, MD 02/05/2023 Telephone MD Kulwant Power, ... (The patien t's Linsey Esposito MD son called [facility] Thoracic Medicine is not [address] [place] [address] feeling we ll she South feels cold and [place], [place] hyperventila ting [address] little bit, but the [phone] son said she do ing okay but wants to know should she come see or just take her Emerge ncy Room/) 02/04/2023 Follow-Up MD Kulwant Power, Adenoid cystic 10:40 AM Linsey Esposito MD carcinoma of CDT Thoracic Medicine nasopharynx, NOS [address] [place] [address] 02/04/2023 Clinical Support Winter Shaw of nasopharynx (Primary Dx); 9:45 AM Linsey Rubalcava MD Adenoid cystic carcinoma of nasopharynx, NOS CDT Radiation Oncology [address] [address] 02/04/2023 Travel 02/03/2023 Infusion MD Kulwant Power, Adenoid cystic 11:00 AM Linsey Esposito MD carcinoma of CDT Infusion nasopharynx, NOS [address] [facility] (Primary D x) [place] [address] 02/03/2023 Orders Only Lorena Jamesague Karyn Garza APRN [address] [place] [address] 02/03/2023 Travel 02/02/2023 Travel 01/31/2023 Refill Internal Medicine Rohan, Type 2 juliet [facility] Glenda J, mellitus with [address] HEAD PAPER TESTER hyperglycemia Blvd (Primary Dx) Main Bldg, 9th [place] [address] 01/28/2023 Telephone Felisa Page, RN Radiation Oncology [address] [address] 01/28/2023 Orders Only Lorena Jamesgh, HEAD PAPER TESTER [address] [place] [address] 01/26/2023 Hospital Encounter MAIN P09B Rachid, Chronic pain (Primary Dx); 4:06 PM Jasmyne Michelle Roberto MD Swallowing painful; CDT - Tracie Patel, Abdominal pain, epigastric; 02/01/2023 [place] [address] MD Jad Rectal hemorrhage; 6:28 PM [phone] Amanda Proctor, Mucositis due to antineoplastic therapy; CDT Adenoid cystic carcinoma of nasopharynx, NOS; Karissa, Hypomagnesemia; Rudy, Severe protein -calorie malnutrition; Encounter for adjustment and management of vascular access device; Dillon Agrawal, Type 2 diabete s mellitus with hyperglycemia; Type 2 diabetes mellitus without complic ation; Kt Hematochezia Saurabh, Discharge Dispo sition: Home with Home-Health or Physical Therapy MD Rashaun 01/26/2023 Travel 01/26/2023 Telephone Felisa Page, RN Radiation Oncology [address] [place] [address] 01/26/2023 Telephone Felisa Page, JCARLOS Radiation Oncology [address] [place] [address] 01/25/2023 Nutrition Clinical Kenya Agarwal 11:30 AM Mendez Smith MD CDT For your Lian Jaramillo, RD appointment location directions please call: 01/25/2023 Hospital Encounter Kenya King Discharge 6:00 AM Treatment Center MD Sarah Disposition: Home CDT - Brian Martinez 01/25/2023 Blvd 11:59 PM Main Bldg [place] [address] 01/25/2023 Telephone Felisa Page, JCARLOS Radiation Oncology [address] [place] [address] 01/22/2023 Nutrition Clinical Kenya Agarwal 10:30 AM Mendez Smith MD CDT For your Lian Jaramillo Mendez Benjamin, RD appointment location directions please call: 01/22/2023 Travel 01/21/2023 Infusion Lorena James Adenoid cysti c 8:45 AM [place] Suzie Garza, HEAD PAPER TESTER carcinoma of CDT Infusion nasopharynx, NOS 0 [facility] (Primary D x) [facility] 4th [place] [address] 01/21/2023 Follow-Up MD Kulwant Power, Adenoid cystic 8:00 AM [place] Suzie Esposito MD carcinoma of CDT Thoracic Medicine nasopharynx, NOS 0 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 Neoplasm r elated pain (acute) (chronic) [place] [address] 01/20/2023 Documentation [facility] 1515 [facility] Main Bldg, 4th [place] [address] 01/20/2023 Travel 01/19/2023 Clinical Support Winter Shaw 3:30 PM Linsey Rubalcava MD CDT Radiation Oncology [address] [place] [address] 1st [place] [address] 01/19/2023 Travel 01/14/2023 Orders Only Head and Neck Gorman, Dysphagia, Center - Speech Mukund oropharyngea l phase Pathology Helen, (Primary Dx) [address] [facility] Blvd Main Bldg, 10th [place] [address] 01/12/2023 Refill Internal Medicine Karen Ordaz, [facility] [address] Main Bldg, 9th [place] [address] 01/11/2023 Hospital Encounter MAIN 22SW Regulo, Headache, not otherwise spec ified (Primary Dx); 7:31 PM [address] Ardon MD Dehydration; CDT - Rockwellhina Lean, Mucositis; 01/18/2023 [place] [id number] MD Roberto Carlos Type 2 diabetes mellitus without complic ation; 7:34 PM [phone] Chung Soria Current use of insulin; CDT [...] of glucocorticoids and synthetic analogues, subsequent encounter; half-way curre nt use of systemic steroid; Hyperlipidemia, not otherwise specified; Gastroesophagea l reflux disease; Essential hyper tension; Mucositis (ulce rative) due to antineoplastic therapy; Neoplasm relate d pain (acute) (chronic); Hypertension; 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; Insulin resista nce Discharge Dispo sition: Home with Home-Health or Physical Therapy 01/11/2023 Travel 01/11/2023 Telephone Felisa Page [place] Suzie Costa RN Radiation Oncology [address] [place] [address] 1[address] [place] [address] 01/08/2023 Nutrition Clinical Kenya Agarwal 10:00 AM Mendez Smith MD [facility] For your Lian Jaramillo RD appointment location directions please call: 01/08/2023 Travel 01/07/2023 Infusion Lorena James 9:00 AM [place] Suzie Garza APRN carcinoma of [facility] Infusion nasopharynx, NOS 22[address] [facility] (Primary D x) [place] [address] 01/07/2023 Follow-Up Lorena Jamesid cysti c 8:40 AM [facility], HEAD PAPER TESTER carcinoma of [facility] [address] [place] [address] nasopharyn x, NOS [facility] (Primary Dx) [place] [address] 01/07/2023 Travel 01/06/2023 Infusion Lorena Jamesid cysti c 11:00 AM [facility], HEAD PAPER TESTER carcinoma of [facility] Infusion nasopharynx, NOS [address] [place] [address] (Primary D x) [address] [place] [address] 01/06/2023 Travel 01/05/2023 Travel 01/04/2023 Clinical Support MD Kulwant Luu, Winter Medel yanely of 2:00 PM [place] Suzie Rubalcava MD nasopharynx (P rimary [facility] Radiation Dx) Oncology [address] [place] [address] 01/04/2023 Infusion Lorena James Adenoid cysti c 10:45 AM [facility], HEAD PAPER TESTER carcinoma of [facility] Infusion nasopharynx, NOS [address] [place] [address] (Primary D x) [address] [address] 01/04/2023 Travel 01/01/2023 Infusion Lorena James Adenoid cysti c 9:00 AM [facility], HEAD PAPER TESTER carcinoma of [facility] Infusion nasopharynx, NOS [address] [place] [address] (Primary D x) [address] [address] 01/01/2023 Follow-Up MD Kulwant Power, Adenoid cystic carcinoma of nasopharynx, NOS (Primary Dx); 8:40 AM Linsey Esposito MD Neoplasm relat ed pain (acute) (chronic) [facility] Thoracic Medicine [address] [place] [address], [place] [address] 01/01/2023 Refill MD Kulwant Guardado, Neoplasm relate d pain [place] - Brittni Benjamin RN (acute) (chron ic) Pain Medicine [address] [place] [address] 01/01/2023 Travel 12/31/2022 Telephone MD Kulwant Kwon, Pain med reques t and [place] - tom iCsneros - jolynn lund Thoracic Medicine RN treatment 0 [place] [address] 12/31/2022 Orders Only Lorena James Adenoid cysti c [place] Kayla, HEAD PAPER TESTER carcinoma of [address] [place] [address] nasopharyn x, NOS South (Primary Dx) [place] [address] 12/30/2022 Hospital Encounter Pain Management Miguel Gordon er associated pain (Primary Dx); 9:33 AM Kandice Fernandez MD Headache, not otherwise spec ified [facility] - [address] Discharge Disp osition: Home 12/30/2022 Blvd 11:59 PM Main Bldg, 4th [facility] [employer] [place] [address] 12/30/2022 Travel 12/29/2022 Hospital Encounter Main Flex Center Alcides, Adenocarcinoma of nasopharyn x; 8:00 AM 151Saurav Palacios MD Sixth (abducen t) nerve palsy, left eye; [facility] - Blvd Diplopia; 12/29/2022 Main Bldg, 7th Corneal anest hesia <Left side>; 11:59 PM Floor Disorder of trigeminal nerve , not otherwise specified [facility] Elevator C Discharge Disposition: [place] [address] 12/29/2022 Travel 12/28/2022 Clinical Support Winter Shaw 2:00 PM Linsey Jimenez - MD Gini [facility] Radiation Oncology [address] [place] [address] 1[address] [place] [address] 12/28/2022 Nutrition Clinical Kenya Agarwal 10:00 AM Mendez Smith MD [facility] For your Lian Jaramillo, RD appointment location directions please call: 12/28/2022 Travel 12/25/2022 Travel 12/24/2022 Infusion oLrena James cysti c 8:45 AM [place] Garza, BORIS carcinoma of [facility] Infusion nasopharynx, NOS [address] [facility] (Primary D x) [facility] 4th [place] [address] 12/24/2022 Follow-Up MD Kulwant Power, Adenoid cystic 8:20 AM Linsey Esposito MD carcinoma of [facility] Thoracic Medicine nasopharynx, NOS [address] [place] [address] 12/24/2022 Telephone Felisa Page [place] - M, RN Radiation Oncology [address] [place] [address] 1[address] [place] [address] 12/24/2022 Telephone Kenya Ivory [place] Suzie Smith MD Head & Neck Surgery [address] [place] [address] 12/24/2022 Telephone MD Kulwant Kwon [place] Suzie Mayorga Thoracic Medicine RN [address] [place] [address] 12/24/2022 Telephone MD Kulwant Kwon [place] [address] [place] [address] 12/24/2022 Telephone MD Kulwant Power, Medication Prob augusta [place] Suzie Esposito MD Infusion [address] [place] [address] 12/24/2022 Travel 12/24/2022 Orders Only MD Kulwant Power [place] Esposito MD Thoracic Medicine [address] [place] [address] 12/23/2022 Clinical Support [facility], Winter Suspected COVID-19 (Primary Dx); 10:15 AM [place] - Isabel Rubalcava MD Adenocarcinoma of nasopharynx [facility] Clinic Lj, [address] Napoles [place] [facility], 8th Floor Elevator [place] [address] 12/23/2022 Hospital Encounter Oral Oncology Homiya, Adenoid cystic carcinoma of nasopharynx, NOS 9:30 AM Brian Bingham DDS Discharge Disp osition: Home [facility] - Blvd 12/23/2022 Main Bldg, 11:59 PM Floor [place] [place] [address] 12/23/2022 Documentation Radiation [place] [facility] [facility] [place] MD Jasmyne Rubalcava[address] [facility] [place] [address] 12/23/2022 Telephone MD Kulwant Power, Results (Test n ote ) [place] - MD Vaibhav Thoracic Medicine [address] [place] [address] 12/23/2022 Telephone MD Kulwant Kwon, Results (Test [place] - Tita Mayorga, note-per Pippa pierce Radiation RN request) Oncology [address] [place] [address] 12/23/2022 Travel 12/23/2022 Orders Only Lorena James Adenoid cysti c [place] Kayla, HEAD PAPER TESTER carcinoma of [address] [place] [address] nasopharyn x, NOS [facility] (Primary Dx) [place] [address] 12/18/2022 Orders Only Lindy Flynn [place] BALJINDER Todd Radiation Oncology [address] [place] [address] 12/18/2022 Orders Only Lindy Flynn Adenocarcinom a of [place] BALJINDER Todd nasopharynx Radiation Oncology [address] [address] 12/17/2022 Clinical Support Kenya Ivory 8:00 AM Linsey Smith MD MANAGER [facility] Radiation [place], Oncology Maria Luz Lund, RN [address] [address] 12/17/2022 Documentation Radiation [facility] [place] Treatment [place] MD Gini [address] [place] [address] 12/17/2022 Documentation Radiation Jus [place] Treatment [place] MD Gini [address] [place] [address] 12/17/2022 Documentation Radiation Winter Luu Treatment [place] MD Gini [address] [place] [address] 12/17/2022 Orders Only Lorena James Adenoid cysti c [place] Kayla, HEAD PAPER TESTER carcinoma of [address] [place] [address] nasopharyn x, NOS South (Primary Dx) [place] [address] 12/17/2022 Travel 12/17/2022 Orders Only Winter Shaw [place] Suzie Rubalcava MD Radiation Oncology [address] [address] 12/16/2022 Orders Only Winter Shaw Adenocarcinoma of [place] - MD Gini nasopharynx (P rimary Radiation Dx) Oncology [address] [address] 12/16/2022 Telephone Felisa Page [place] Suzie Costa, RN Radiation Oncology [address] [address] 12/16/2022 Telephone Endocrine Center Rosmery Dickinson, [address] Main Bldg, 6th [place] [address] 12/15/2022 Hospital Encounter Oral Oncology Kenya Agarwal Encounter for observation fo r other suspected disease ruled out 8:42 AM Brian Smith MD Discharge Disp osition: Home [facility] - Blvd 12/15/2022 Main Bldg, 9 11:59 PM Floor [employer] [place] [address] 12/15/2022 Refill Lindy Flynn a of [place] - BALJINDER Sotelo nasopharynx Radiation Oncology [address] [place] [address] 12/15/2022 Orders Only Pain Management Williams, Neoplasm re lated pain Center [facility], (acute) (chronic) [address] (Primary Dx) vd Main Bldg, 4th [place] [address] 12/15/2022 Orders Only Pain Management [place], [facility], [address] Main Bldg, 4th [place] [address] 12/15/2022 Orders Only [facility] ([facility] t) [place] - [facility], OD nerve palsy, le ft eye Ophthalmology (Primary Dx) [address] [facility] Main Bldg, 9th [place] [address] 12/15/2022 Ophth Exam Head and Neck [facility], [place] Ophthalmology [address] [facility] Main Bldg, 9th [place] [address] 12/14/2022 Orders Only Oral Oncology Martínez, Encounter for [address] Hdz MD observation fo r other Blvd suspected disease Main Bldg, 9th ruled out (Pr imary Floor Dx) [place] [address] 12/11/2022 Telephone Oral Oncology Triston Gomez [address] Main Bldg, 9th [place] [address] 12/10/2022 Travel 12/10/2022 Orders Only Oral Oncology Martínez, Encounter for [address] Hdz MD observation fo r other Blvd suspected disease Main Bldg, 9th ruled out (Pr imary Floor Dx) [place] [address] 12/09/2022 Hospital Encounter MAIN P04A Mer Milian Type 2 diabetes mellitus wit hout complication (Primary Dx); 9:01 PM Brian Peñaloza MD Adenoid cystic carcinoma of nasopharynx, NOS; [facility] - [place] Nico, Headache; 12/15/2022 [place] [address] MD Roberto Carlos Blurring of visual image; 7:30 PM [phone] Regulo, Adenocarcinoma of nasopharynx; MANAGER DATA CENTER MD eRva Encounter for observation for other susp ected disease ruled out; Abiodun Adorno, Headache, not otherwise specified; Diplopia; Karissa, Hypertension; Rudy, Gastroesophage al reflux disease MD Discharge Disposition: Home Travis Lopez MD Brito-Dellan, Norman, MD Leung, Cerena, MD 12/08/2022 Telephone Lindy Flynn [place] BALJINDER Todd Radiation Oncology [address] [place] [address] 12/08/2022 Orders Only Lorena James Adenoid cysti c [facility], HEAD PAPER TESTER carcinoma of [address] [place] [address] nasopharyn x, NOS South (Primary Dx) [place] [address] 12/05/2022 Telephone Winter Shaw [place] Suzie Rubalcava MD Radiation Oncology [address] [place] [address] 12/05/2022 Orders Only Winter Shaw Adenocarcinoma of [place] - MD Gini nasopharynx (P rimary Radiation Dx) Oncology [address] [place] [address] 12/04/2022 Hospital Encounter TAO Benitez, Discharg e 10:55 AM MEGAN Castro Disposition: [facility] BRANDAN Choe MD 12/04/2022 Lorena Hdez 11:59 PM BORIS Garza CST 12/04/2022 Telephone Linsey Turner, Head & Neck HEAD PAPER TESTER Surgery [address] [place] [address] 12/04/2022 Multidisciplinary Visit Linsey Turner, Head & Neck HEAD PAPER TESTER Surgery [address] [place] [address] 12/04/2022 Telephone MD Kulwant Cochran [place] - Maria Luz Lund, RN Radiation Oncology [address] [address] 12/02/2022 Orders Only Lindy Flynn Adenocarcinom a of [place] - BALJINDER Sotelo nasopharynx (P rimary Radiation Dx) Oncology [address] [address] 12/02/2022 Orders Only Winter Shaw Adenocarcinoma of [place] - MD Gini nasopharynx (P rimary Radiation Dx) Oncology [address] [address] 11/30/2022 Ancillary Procedure [facility] MRI Lorena Hdez Adenocarcinoma of 8:15 AM [address] Garza APRN nasopharynx MA[facility]GER DATA [facility], 4th [place] [address] 11/30/2022 Travel 11/27/2022 Ancillary Procedure Lindy Flynn Adenoc arcinoma of nasopharynx; 12:00 PM [place] Su Malignant neoplasm of overla pping sites of nasopharynx [facility] [address] [address] 11/27/2022 Travel 11/26/2022 Consult MD Kulwant Power, Adenocarcinoma of 11:00 AM Linsey Esposito MD nasopharynx [facility] Thoracic Medicine [address] [place] [address] 11/26/2022 Consult Winter Shaw Adenocarcinoma of nasopharynx; 10:00 AM Linsey Rubalcava MD Malignant neop lasm of overlapping sites of nasopharynx [facility] Radiation Oncology [address] [address] 11/26/2022 Travel 11/24/2022 Lab Requisition MDA [facility]ENTRAL AP David Nunez GMD Disposition: Home Alexa Alvarez MD 11/23/2022 Telephone Ofe [place] T, RN [address] [place] [address] 11/22/2022 Orders Only Oral Oncology Berkley Aguayo, Encounter for [address] observation fo r other Blvd suspected condition Main Bldg, 9th ruled out (Pr imary Floor Dx) [place] [address] 11/20/2022 Telephone Elana Dupree [place] RN [address] [place] [address] 11/17/2022 Office Visit Kenya Ivory Adenocarcinoma of 9:15 AM Linsey Smith MD nasopharynx [facility] Head & Neck Surgery [address] [place] [address] 11/17/2022 NPR MDA PATIENT Kenya Agarwal 8:45 AM TAMERA Smith MD [facility] 11/17/2022 Travel 11/16/2022 Orders Only MD Kulwant Berman, Adenocarcinoma of [place] - Red Costa, nasopharynx (P rimary Head & Neck HEAD PAPER TESTER Dx) Surgery [address] [place] [address] 11/12/2022 Orders Only MD Kulwant Honeycutt [place] - BALJINDER Branch Head & Neck Surgery [address] [place] [address] 11/12/2022 Orders Only Head and Neck Antonella, Adenocarcinoma of nasopharynx (Primary Dx); Center - Surgical Red Costa, 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 Oncology HEAD PAPER TESTER 1515 [facility] Main Bldg, 10th Floor, [place] [address] after 09/25/2022 Surgical History Surgery Date Site/Laterality Comments APPENDECTOMY [id number] COLONOSCOPY [id number] CHOLECYSTECTOMY [id number] KNEE ARTHROPLASTY Right SHOULDER SURGERY 050@2010 Left UPPER GASTROINTESTINAL ENDOSCOPY [id number] SECTION, CLASSIC 11/01/1984 - 10/31/1985 PARTIAL HYSTERECTOMY 03/01/2012 - 03/31/2012 MYRINGOTOMY WITH ASPIRATION AND 11/01/2019 - 10/31/2020 INSERTION PE TUBES SLEEVE GASTROPLASTY N/A Medical History Medical History Date Comments Hypertension [id number] Hyperlipidemia [id number] Allergic rhinitis [id number] Fatty liver 55966642 Gastric reflux 47416301 Gastric ulcer 61710782 Crohn's disease 07570199 Gout 13424013 Type 2 diabetes mellitus with 3781007 hyperglycemia Anxiety 50268975 Chronic obstructive pulmonary disease On home supplemental [...] Sex Assigned at Female 11/12/2022 2:07 PM [facility] Gender Identity Female 11/12/2022 2:07 PM C [...] Weight 145.3 kg (320 lb 5.3 oz) 09/13/2023 10:01 AM [facility] Height 155 cm (5' 1.02") 09/13/2023 10:01 AM [facility] Body Mass Index 60.48 09/13/2023 10:01 AM [facility] Plan of Treatment Date Type Department Care Team Description 10/12/2023 10:45 Follow-Up MD Kulwant [place] Chelly Agarwal MD AM [facility] - Head & Neck Surger y [address] [facility] [address] [place] [address] [phone] 10/27/2023 9:00 Lab MD Blum [place] Kylie Andrade i AM MANA[facility] - Diagnostic Laboratory [facility] [address] [facility] [address] 1st [place] [address] [phone] 11/03/2023 1:30 Telemedicine Endocrine Center Marily Garcia, PM [facility] [address] HEAD PAPER TESTER Main Bldg, 6th Floor [address] [place] [address] [place] [address] [phone] Health Maintenance Due Date Last Done Comments COVID-19 Vaccination (07/02/2023 07/11/2021, , season) 12/03/2020 Medical Devices Implanted Type Area Gate Agent Device Shelf Model / Identifier Expiration Serial / Date Lot Gastric Sleeve Sleeve Midline: Stomach Procedures Procedure Name Priority Date/Time Associated Comments Diagnosis MRI ORBITS W WO CONTRAST Routine 09/13/2023 Adenoid cystic R esults for 11:51 AM [facility] carcinoma of this procedure nasopharynx, NOS are in the results section. CORTISOL, TOTAL Routine 09/13/2023 Adenoid cystic Results fo r 9:29 AM [facility] carcinoma of this procedure nasopharynx, NOS are in the results section. ADRENOCORTICOTROPIC Routine 09/13/2023 Adenoid cystic Result s for HORMONE 9:29 AM [facility] carcinoma of this procedure nasopharynx, NOS are in the results section. ESTRADIOL LEVEL Routine 09/13/2023 Adenoid cystic Results fo r 9:29 AM [facility] carcinoma of this procedure nasopharynx, NOS are in the results section. FOLLICLE STIMULATING Routine 09/13/2023 Adenoid cystic Resul ts for HORMONE LEVEL 9:29 AM [facility] carcinoma of this procedure nasopharynx, NOS are in the results section. LUTEINIZING HORMONE Routine 09/13/2023 Adenoid cystic Result s for 9:29 AM [facility] carcinoma of this procedure nasopharynx, NOS are in the results section. THYROID STIMULATING Routine 09/13/2023 Adenoid cystic Result s for HORMONE 9:29 AM [facility] carcinoma of this procedure nasopharynx, NOS are in the results section. TRIIODOTHYRONINE Routine 09/13/2023 Adenoid cystic Results f or 9:29 AM [facility] carcinoma of this procedure nasopharynx, NOS are in the results section. FREE THYROXINE Routine 09/13/2023 Adenoid cystic Results for 9:29 AM [facility] carcinoma of this procedure nasopharynx, NOS are in the results section. INSULIN-LIKE GROWTH FACTOR Routine 09/13/2023 Adenoid cystic Results for 1 9:29 AM [facility] carcinoma of this procedure nasopharynx, NOS are in the results section. PROLACTIN Routine 09/13/2023 Adenoid cystic Results for 9:29 AM [facility] carcinoma of this procedure nasopharynx, NOS are in the results section. ADRENOCORTICOTROPIC Routine 06/17/2023 Abnormal cortisol Res ults [...] the results section. CONTROLLED SUBSTANCE Routine 01/20/2023 half-way current Re sults for MONITORING PANEL, URINE [...] 01/07/2023 Adenoid cystic Results for 8:28 AM [facility] carcinoma of this procedure nasopharynx, NOS are in the results section. .CBC Routine 01/07/2023 Adenoid cystic Results for 8:28 AM [facility] carcinoma of this procedure nasopharynx, NOS are in the results section. FRACTIONATED BILIRUBIN Routine 01/07/2023 Adenoid cystic Res ults for 8:28 AM [facility] carcinoma of this procedure nasopharynx, NOS are in the results section. TOTAL PROTEIN Routine 01/07/2023 Adenoid cystic Results for 8:28 AM [facility] carcinoma of this procedure nasopharynx, NOS are in the results section. ASPARTATE AMINOTRANSFERASE Routine 01/07/2023 Adenoid cystic Results for 8:28 AM [facility] carcinoma of this procedure nasopharynx, NOS are in the results section. ALANINE AMINOTRANSFERASE Routine 01/07/2023 Adenoid cystic R esults for 8:28 AM [facility] carcinoma of this procedure nasopharynx, NOS are in the results section. ALKALINE PHOSPHATASE Routine 01/07/2023 Adenoid cystic Resul ts for 8:28 AM [facility] carcinoma of this procedure nasopharynx, NOS are in the results section. ALBUMIN LEVEL Routine 01/07/2023 Adenoid cystic Results for 8:28 AM [facility] carcinoma of this procedure nasopharynx, NOS are in the results section. CALCIUM LEVEL Routine 01/07/2023 Adenoid cystic Results for 8:28 AM [facility] carcinoma of this procedure nasopharynx, NOS are in the results section. .GLOMERULAR FILTRATION Routine 01/07/2023 Adenoid cystic Res ults for RATE 8:28 AM [facility] carcinoma of this procedure nasopharynx, NOS are in the results section. SERUM CREATININE Routine 01/07/2023 Adenoid cystic Results f or 8:28 AM [facility] carcinoma of this procedure nasopharynx, NOS are in the results section. ELECTROLYTE PANEL Routine 01/07/2023 Adenoid cystic Results for 8:28 AM [facility] carcinoma of this procedure nasopharynx, NOS are in the results section. BLOOD UREA NITROGEN Routine 01/07/2023 Adenoid cystic Result s for 8:28 AM [facility] carcinoma of this procedure nasopharynx, NOS are in the results section. GLUCOSE LEVEL Routine 01/07/2023 Adenoid cystic Results for 8:28 AM [facility] carcinoma of this procedure nasopharynx, NOS are in the results section. PHOSPHORUS LEVEL Routine 01/07/2023 Adenoid cystic Results f or 8:28 AM [facility] carcinoma of this procedure nasopharynx, NOS are in the results section. MAGNESIUM LEVEL Routine 01/07/2023 Adenoid cystic Results fo r 8:28 AM [facility] carcinoma of this procedure nasopharynx, NOS are in the results section. COMPLETE BLOOD COUNT W/ Routine 01/07/2023 Adenoid cystic DIFFERENTIAL 8:28 AM [facility] carcinoma of nasopharynx, NOS COMPREHENSIVE METABOLIC Routine 01/07/2023 Adenoid cystic PANEL 8:28 AM [facility] carcinoma of nasopharynx, NOS DIFFERENTIAL Routine 01/01/2023 Adenoid cystic Results for 8:26 AM [facility] carcinoma of this procedure nasopharynx, NOS are in the results section. .CBC Routine 01/01/2023 Adenoid cystic Results for 8:26 AM [facility] carcinoma of this procedure nasopharynx, NOS are in the results section. FRACTIONATED BILIRUBIN Routine 01/01/2023 Adenoid cystic Res ults for 8:26 AM [facility] carcinoma of this procedure nasopharynx, NOS are in the results section. TOTAL PROTEIN Routine 01/01/2023 Adenoid cystic Results for 8:26 AM [facility] carcinoma of this procedure nasopharynx, NOS are in the results section. ASPARTATE AMINOTRANSFERASE Routine 01/01/2023 Adenoid cystic Results for 8:26 AM [facility] carcinoma of this procedure nasopharynx, NOS are in the results section. ALANINE AMINOTRANSFERASE Routine 01/01/2023 Adenoid cystic R esults for 8:26 AM [facility] carcinoma of this procedure nasopharynx, NOS are in the results section. ALKALINE PHOSPHATASE Routine 01/01/2023 Adenoid cystic Resul ts for 8:26 AM [facility] carcinoma of this procedure nasopharynx, NOS are in the results section. ALBUMIN LEVEL Routine 01/01/2023 Adenoid cystic Results for 8:26 AM [facility] carcinoma of this procedure nasopharynx, NOS are in the results section. CALCIUM LEVEL Routine 01/01/2023 Adenoid cystic Results for 8:26 AM [facility] carcinoma of this procedure nasopharynx, NOS are in the results section. .GLOMERULAR FILTRATION Routine 01/01/2023 Adenoid cystic Res ults for RATE 8:26 AM [facility] carcinoma of this procedure nasopharynx, NOS are in the results section. SERUM CREATININE Routine 01/01/2023 Adenoid cystic Results f or 8:26 AM [facility] carcinoma of this procedure nasopharynx, NOS are in the results section. ELECTROLYTE PANEL Routine 01/01/2023 Adenoid cystic Results for 8:26 AM [facility] carcinoma of this procedure nasopharynx, NOS are in the results section. BLOOD UREA NITROGEN Routine 01/01/2023 Adenoid cystic Result s for 8:26 AM [facility] carcinoma of this procedure nasopharynx, NOS are in the results section. GLUCOSE LEVEL Routine 01/01/2023 Adenoid cystic Results for 8:26 AM [facility] carcinoma of this procedure nasopharynx, NOS are in the results section. PHOSPHORUS LEVEL Routine 01/01/2023 Adenoid cystic Results f or 8:26 AM [facility] carcinoma of this procedure nasopharynx, NOS are in the results section. MAGNESIUM LEVEL Routine 01/01/2023 Adenoid cystic Results fo r 8:26 AM [facility] carcinoma of this procedure nasopharynx, NOS are in the results section. COMPLETE BLOOD COUNT W/ Routine 01/01/2023 Adenoid cystic DIFFERENTIAL 8:26 AM [facility]ENTER carcinoma of nasopharynx, NOS COMPREHENSIVE METABOLIC Routine 01/01/2023 Adenoid cystic PANEL 8:26 AM MA[facility] DATA [facility]ENTER carcinoma of nasopharynx, NOS [place] [employer], Routine 12/29/2022 Sixth (abducent) R esults for INTERMEDIATE - OU - BOTH 10:51 AM [facility] DATA [facility] nerve palsy, lef t this procedure EYES eye are in the results section. OCT, OPTIC NERVE - OU - Routine 12/29/2022 Sixth (abducent) Results for BOTH EYES 10:43 AM [facility] nerve palsy, left this proce dure eye are in the results section. OCT, RETINA - OU - BOTH Routine 12/29/2022 Sixth (abducent) Results for EYES 10:43 AM [facility] nerve palsy, left this proce dure eye are in the results section. DIFFERENTIAL Routine 12/24/2022 Adenoid cystic Results for 9:16 AM [facility] carcinoma of this procedure nasopharynx, NOS are in the results section. .CBC Routine 12/24/2022 Adenoid cystic Results for 9:16 AM [facility] carcinoma of this procedure nasopharynx, NOS are in the results section. FRACTIONATED BILIRUBIN Routine 12/24/2022 Adenoid cystic Res ults for 9:16 AM [facility] carcinoma of this procedure nasopharynx, NOS are in the results section. TOTAL PROTEIN Routine 12/24/2022 Adenoid cystic Results for 9:16 AM [facility] carcinoma of this procedure nasopharynx, NOS are in the results section. ASPARTATE AMINOTRANSFERASE Routine 12/24/2022 Adenoid cystic Results for 9:16 AM [facility] carcinoma of this procedure nasopharynx, NOS are in the results section. ALANINE AMINOTRANSFERASE Routine 12/24/2022 Adenoid cystic R esults for 9:16 AM [facility] carcinoma of this procedure nasopharynx, NOS are in the results section. ALKALINE PHOSPHATASE Routine 12/24/2022 Adenoid cystic Resul ts for 9:16 AM [facility] DATA [facility] carcinoma of this procedure nasopharynx, NOS are in the results section. ALBUMIN LEVEL Routine 12/24/2022 Adenoid cystic Results for 9:16 AM [facility] carcinoma of this procedure nasopharynx, NOS are in the results section. CALCIUM LEVEL Routine 12/24/2022 Adenoid cystic Results for 9:16 AM [facility] carcinoma of this procedure nasopharynx, NOS are in the results section. .GLOMERULAR FILTRATION Routine 12/24/2022 Adenoid cystic Res ults for RATE 9:16 AM [facility] carcinoma of this procedure nasopharynx, NOS are in the results section. SERUM CREATININE Routine 12/24/2022 Adenoid cystic Results f or 9:16 AM [facility] carcinoma of this procedure nasopharynx, NOS are in the results section. ELECTROLYTE PANEL Routine 12/24/2022 Adenoid cystic Results for 9:16 AM [facility] carcinoma of this procedure nasopharynx, NOS are in the results section. BLOOD UREA NITROGEN Routine 12/24/2022 Adenoid cystic Result s for 9:16 AM [facility] carcinoma of this procedure nasopharynx, NOS are in the results section. GLUCOSE LEVEL Routine 12/24/2022 Adenoid cystic Results for 9:16 AM [facility] carcinoma of this procedure nasopharynx, NOS are in the results section. PHOSPHORUS LEVEL Routine 12/24/2022 Adenoid cystic Results f or 9:16 AM [facility] carcinoma of this procedure nasopharynx, NOS are in the results section. MAGNESIUM LEVEL Routine 12/24/2022 Adenoid cystic Results fo r 9:16 AM [facility] carcinoma of this procedure nasopharynx, NOS are in the results section. COMPLETE BLOOD COUNT W/ Routine 12/24/2022 Adenoid cystic DIFFERENTIAL 9:16 AM [facility] carcinoma of nasopharynx, NOS COMPREHENSIVE METABOLIC Routine 12/24/2022 Adenoid cystic PANEL 9:16 AM [facility] carcinoma of nasopharynx, NOS COVID-19 (SARS-COV-2) PCR Routine 12/23/2022 Suspected COVID -19 Results for - ASYMPTOMATIC - MC 12:01 PM [facility] this pro cedure are in the results section. POC GLUCOSE SCREEN Routine 12/15/2022 Results f or 6:07 PM [facility] this procedure are in the results section. POC GLUCOSE SCREEN Routine 12/15/2022 Results f or 12:52 PM [facility] this procedure are in the results section. OCT, OPTIC NERVE - OU - Routine 12/15/2022 Diplopia Resu lts for BOTH EYES 10:37 AM [facility] this procedure are in the results section. OCT, RETINA - OU - BOTH Routine 12/15/2022 Diplopia Resu lts for EYES 10:37 AM [facility] this procedure are in the results section. FUNDUS PHOTOS - OU - BOTH Routine 12/15/2022 Diplopia Re sults for EYES 10:37 AM [facility] this procedure are in the results section. 3D DENTAL IMAGING (ICAT) Routine 12/15/2022 Encounter for Re sults for 8:42 AM [facility] observation for this procedu re other suspected are in the disease ruled out results section. POC GLUCOSE SCREEN Routine 12/15/2022 Results f or 7:19 AM [facility] this procedure are in the results section. POC GLUCOSE SCREEN Routine 12/15/2022 Results f or 6:12 AM [facility] this procedure are in the results section. DIFFERENTIAL AM 12/15/2022 Results for 3:44 AM [facility] this procedure are in the results section. .CBC AM 12/15/2022 Results for 3:44 AM [facility] this procedure are in the results section. CALCIUM LEVEL AM 12/15/2022 Results for 3:44 AM [facility] this procedure are in the results section. .GLOMERULAR FILTRATION AM 12/15/2022 Resul ts for RATE 3:44 AM [facility] this procedure are in the results section. SERUM CREATININE AM 12/15/2022 Results for 3:44 AM [facility] this procedure are in the results section. ELECTROLYTE PANEL AM 12/15/2022 Results fo r 3:44 AM [facility] this procedure are in the results section. BLOOD UREA NITROGEN AM 12/15/2022 Results for 3:44 AM [facility] this procedure are in the results section. GLUCOSE LEVEL AM 12/15/2022 Results for 3:44 AM [facility] this procedure are in the results section. COMPLETE BLOOD COUNT W/ AM 12/15/2022 DIFFERENTIAL 3:44 AM [facility] PHOSPHORUS LEVEL AM 12/15/2022 Results for 3:44 AM [facility] this procedure are in the results section. MAGNESIUM LEVEL AM 12/15/2022 Results for 3:44 AM [facility] this procedure are in the results section. BASIC METABOLIC PANEL, AM 12/15/2022 CALCIUM TOTAL 3:44 AM [facility] POC GLUCOSE SCREEN Routine 12/15/2022 Results f or 2:28 AM [facility] this procedure are in the results section. POC GLUCOSE SCREEN Routine 12/14/2022 Results f or 10:04 PM [facility] this procedure are in the results section. POC GLUCOSE SCREEN Routine 12/14/2022 Results f or 5:26 PM [facility] this procedure are in the results section. POC GLUCOSE SCREEN Routine 12/14/2022 Results f or 4:14 PM [facility] this procedure are in the results section. FL MODIFIED BARIUM SWALLOW Routine 12/14/2022 R esults for W SPEECH 2:37 PM [facility] this procedure are in the results section. POC GLUCOSE SCREEN Routine 12/14/2022 Results f or 12:08 PM [facility] this procedure are in the results section. GENERAL LABORATORY ADD ON Routine 12/14/2022 Re sults for TEST 8:03 AM [facility] this procedure are in the results section. POC GLUCOSE SCREEN Routine 12/14/2022 Results f or 7:25 AM [facility] this procedure are in the results section. POC GLUCOSE SCREEN Routine 12/14/2022 Results f or 5:55 AM [facility] this procedure are in the results section. FRACTIONATED BILIRUBIN AM 12/14/2022 Resul ts for 4:46 AM [facility] this procedure are in the results section. TOTAL PROTEIN AM 12/14/2022 Results for 4:46 AM [facility] this procedure are in the results section. ASPARTATE AMINOTRANSFERASE AM 12/14/2022 R esults for 4:46 AM [facility] this procedure are in the results section. ALANINE AMINOTRANSFERASE AM 12/14/2022 Res ults for 4:46 AM [facility] this procedure are in the results section. ALKALINE PHOSPHATASE AM 12/14/2022 Results for 4:46 AM [facility] this procedure are in the results section. ALBUMIN LEVEL AM 12/14/2022 Results for 4:46 AM [facility] this procedure are in the results section. DIFFERENTIAL AM 12/14/2022 Results for 4:46 AM [facility] this procedure are in the results section. .CBC AM 12/14/2022 Results for 4:46 AM [facility] this procedure are in the results section. CALCIUM LEVEL AM 12/14/2022 Results for 4:46 AM [facility] this procedure are in the results section. .GLOMERULAR FILTRATION AM 12/14/2022 Resul ts for RATE 4:46 AM [facility] this procedure are in the results section. SERUM CREATININE AM 12/14/2022 Results for 4:46 AM [facility] this procedure are in the results section. ELECTROLYTE PANEL AM 12/14/2022 Results fo r 4:46 AM [facility] this procedure are in the results section. BLOOD UREA NITROGEN AM 12/14/2022 Results for 4:46 AM [facility] this procedure are in the results section. GLUCOSE LEVEL AM 12/14/2022 Results for 4:46 AM [facility] this procedure are in the results section. COMPLETE BLOOD COUNT W/ AM 12/14/2022 DIFFERENTIAL 4:46 AM [facility] PHOSPHORUS LEVEL AM 12/14/2022 Results for 4:46 AM [facility] this procedure are in the results section. MAGNESIUM LEVEL AM 12/14/2022 Results for 4:46 AM [facility] this procedure are in the results section. BASIC METABOLIC PANEL, AM 12/14/2022 CALCIUM TOTAL 4:46 AM [facility] POC GLUCOSE SCREEN Routine 12/14/2022 Results f or 1:36 AM [facility] this procedure are in the results section. POC GLUCOSE SCREEN Routine 12/13/2022 Results f or 9:56 PM [facility] this procedure are in the results section. POC GLUCOSE SCREEN Routine 12/13/2022 Results f or 6:31 PM [facility] this procedure are in the results section. POC GLUCOSE SCREEN Routine 12/13/2022 Results f or 1:24 PM [facility] this procedure are in the results section. POC GLUCOSE SCREEN Routine 12/13/2022 Results f or 8:02 AM [facility] this procedure are in the results section. POC GLUCOSE SCREEN Routine 12/13/2022 Results f or 5:58 AM [facility] this procedure are in the results section. POC GLUCOSE SCREEN Routine 12/13/2022 Results f or 3:24 AM [facility] this procedure are in the results section. DIFFERENTIAL AM 12/13/2022 Results for 3:12 AM [facility] this procedure are in the results section. .CBC AM 12/13/2022 Results for 3:12 AM [facility] this procedure are in the results section. CALCIUM LEVEL AM 12/13/2022 Results for 3:12 AM [facility] this procedure are in the results section. .GLOMERULAR FILTRATION AM 12/13/2022 Resul ts for RATE 3:12 AM [facility] this procedure are in the results section. SERUM CREATININE AM 12/13/2022 Results for 3:12 AM [facility] this procedure are in the results section. ELECTROLYTE PANEL AM 12/13/2022 Results fo r 3:12 AM [facility] this procedure are in the results section. BLOOD UREA NITROGEN AM 12/13/2022 Results for 3:12 AM [facility] this procedure are in the results section. GLUCOSE LEVEL AM 12/13/2022 Results for 3:12 AM [facility] this procedure are in the results section. COMPLETE BLOOD COUNT W/ AM 12/13/2022 DIFFERENTIAL 3:12 AM [facility] PHOSPHORUS LEVEL AM 12/13/2022 Results for 3:12 AM [facility] this procedure are in the results section. MAGNESIUM LEVEL AM 12/13/2022 Results for 3:12 AM [facility] this procedure are in the results section. BASIC METABOLIC PANEL, AM 12/13/2022 CALCIUM TOTAL 3:12 AM [facility] POC GLUCOSE SCREEN Routine 12/12/2022 Results f or 9:43 PM [facility] this procedure are in the results section. POC GLUCOSE SCREEN Routine 12/12/2022 Results f or 6:16 PM [facility] this procedure are in the results section. POC GLUCOSE SCREEN Routine 12/12/2022 Results f or 12:52 PM [facility] this procedure are in the results section. POC GLUCOSE SCREEN Routine 12/12/2022 Results f or 7:47 AM [facility] this procedure are in the results section. POC GLUCOSE SCREEN Routine 12/12/2022 Results f or 5:52 AM [facility] this procedure are in the results section. DIFFERENTIAL AM 12/12/2022 Results for 4:30 AM [facility] this procedure are in the results section. .CBC AM 12/12/2022 Results for 4:30 AM [facility] this procedure are in the results section. CALCIUM LEVEL AM 12/12/2022 Results for 4:30 AM [facility] this procedure are in the results section. .GLOMERULAR FILTRATION AM 12/12/2022 Resul ts for RATE 4:30 AM [facility] this procedure are in the results section. SERUM CREATININE AM 12/12/2022 Results for 4:30 AM [facility] this procedure are in the results section. ELECTROLYTE PANEL AM 12/12/2022 Results fo r 4:30 AM [facility] this procedure are in the results section. BLOOD UREA NITROGEN AM 12/12/2022 Results for 4:30 AM [facility] this procedure are in the results section. GLUCOSE LEVEL AM 12/12/2022 Results for 4:30 AM [facility] this procedure are in the results section. COMPLETE BLOOD COUNT W/ AM 12/12/2022 DIFFERENTIAL 4:30 AM [facility] PHOSPHORUS LEVEL AM 12/12/2022 Results for 4:30 AM [facility] this procedure are in the results section. MAGNESIUM LEVEL AM 12/12/2022 Results for 4:30 AM [facility] this procedure are in the results section. BASIC METABOLIC PANEL, AM 12/12/2022 CALCIUM TOTAL 4:30 AM [facility] POC GLUCOSE SCREEN Routine 12/12/2022 Results f or 2:06 AM [facility] this procedure are in the results section. POC GLUCOSE SCREEN Routine 12/11/2022 Results f or 10:01 PM [facility] this procedure are in the results section. LACTIC ACID, VENOUS Timed Study 12/11/2022 Results for 9:50 PM [facility] this procedure are in the results section. LIPASE LEVEL STAT 12/11/2022 Results for 6:21 PM [facility] this procedure are in the results section. BLOOD GAS VENOUS STAT 12/11/2022 Results for 6:21 PM [facility] this procedure are in the results section. POC GLUCOSE SCREEN Routine 12/11/2022 Results f or 6:10 PM [facility] this procedure are in the results section. GENERAL LABORATORY ADD ON Routine 12/11/2022 Re sults for TEST 5:39 PM [facility] this procedure are in the results section. KETONE BODIES QUALITATIVE STAT 12/11/2022 Re sults for 5:19 PM [facility] this procedure are in the results section. POC GLUCOSE SCREEN Routine 12/11/2022 Results f or 4:51 PM [facility] this procedure are in the results section. LIPASE LEVEL STAT 12/11/2022 Results for 4:33 PM [facility] this procedure are in the results section. ELECTROLYTE PANEL STAT 12/11/2022 Results fo r 4:33 PM [facility] this procedure are in the results section. LACTIC ACID, VENOUS Timed Study 12/11/2022 Results for 4:33 PM [facility] this procedure are in the results section. POC GLUCOSE SCREEN Routine 12/11/2022 Results f or 3:34 PM [facility] this procedure are in the results section. POC CRITICAL Routine 12/11/2022 Results for 3:34 PM [facility] this procedure are in the results section. POC GLUCOSE SCREEN Routine 12/11/2022 Results f or 2:33 PM [facility] this procedure are in the results section. POC CRITICAL Routine 12/11/2022 Results for 2:33 PM [facility] this procedure are in the results section. POC GLUCOSE SCREEN Routine 12/11/2022 Results f or 12:35 PM [facility] this procedure are in the results section. POC GLUCOSE SCREEN Routine 12/11/2022 Results f or 8:14 AM [facility] this procedure are in the results section. LACTIC ACID, VENOUS Routine 12/11/2022 Results for 4:37 AM [facility] this procedure are in the results section. DIFFERENTIAL AM 12/11/2022 Results for 4:30 AM [facility] this procedure are in the results section. .CBC AM 12/11/2022 Results for 4:30 AM [facility] this procedure are in the results section. CALCIUM LEVEL AM 12/11/2022 Results for 4:30 AM [facility] this procedure are in the results section. .GLOMERULAR FILTRATION AM 12/11/2022 Resul ts for RATE 4:30 AM [facility] this procedure are in the results section. SERUM CREATININE AM 12/11/2022 Results for 4:30 AM [facility] this procedure are in the results section. ELECTROLYTE PANEL AM 12/11/2022 Results fo r 4:30 AM [facility] this procedure are in the results section. BLOOD UREA NITROGEN AM 12/11/2022 Results for 4:30 AM [facility] this procedure are in the results section. GLUCOSE LEVEL AM 12/11/2022 Results for 4:30 AM [facility] this procedure are in the results section. COMPLETE BLOOD COUNT W/ AM 12/11/2022 DIFFERENTIAL 4:30 AM [facility] PHOSPHORUS LEVEL AM 12/11/2022 Results for 4:30 AM [facility] this procedure are in the results section. MAGNESIUM LEVEL AM 12/11/2022 Results for 4:30 AM [facility] this procedure are in the results section. BASIC METABOLIC PANEL, AM 12/11/2022 CALCIUM TOTAL 4:30 AM [facility] POC GLUCOSE SCREEN Routine 12/11/2022 Results f or 1:20 AM [facility] this procedure are in the results section. POC GLUCOSE SCREEN Routine 12/10/2022 Results f or 10:00 PM [facility] this procedure are in the results section. POC GLUCOSE SCREEN Routine 12/10/2022 Results f or 6:29 PM [facility] this procedure are in the results section. POC GLUCOSE SCREEN Routine 12/10/2022 Results f or 5:20 PM [facility] this procedure are in the results section. CT HEAD WO CONTRAST STAT 12/10/2022 Results for 3:21 PM [facility] this procedure are in the results section. POC GLUCOSE SCREEN Routine 12/10/2022 Results f or 1:45 PM [facility] this procedure are in the results section. POC GLUCOSE SCREEN Routine 12/10/2022 Results f or 11:35 AM [facility] this procedure are in the results section. POC GLUCOSE SCREEN Routine 12/10/2022 Results f or 7:30 AM [facility] this procedure are in the results section. URINALYSIS WITH Routine 12/10/2022 Results for MICROSCOPIC IF INDICATED 6:13 AM [facility] thi s procedure are in the results section. URINE CULTURE Routine 12/10/2022 Results for 6:13 AM [facility] this procedure are in the results section. DIFFERENTIAL STAT 12/10/2022 Results for 5:13 AM [facility] this procedure are in the results section. .CBC STAT 12/10/2022 Results for 5:13 AM [facility] this procedure are in the results section. CALCIUM LEVEL AM 12/10/2022 Results for 5:13 AM [facility] this procedure are in the results section. .GLOMERULAR FILTRATION AM 12/10/2022 Resul ts for RATE 5:13 AM [facility] this procedure are in the results section. SERUM CREATININE AM 12/10/2022 Results for 5:13 AM [facility] this procedure are in the results section. ELECTROLYTE PANEL AM 12/10/2022 Results fo r 5:13 AM [facility] this procedure are in the results section. BLOOD UREA NITROGEN AM 12/10/2022 Results for 5:13 AM [facility] this procedure are in the results section. GLUCOSE LEVEL AM 12/10/2022 Results for 5:13 AM [facility] this procedure are in the results section. HEMOGLOBIN A1C Routine 12/10/2022 Results for 5:13 AM [facility] this procedure are in the results section. COMPLETE BLOOD COUNT W/ AM 12/10/2022 DIFFERENTIAL 5:13 AM [facility] PHOSPHORUS LEVEL AM 12/10/2022 Results for 5:13 AM [facility] this procedure are in the results section. MAGNESIUM LEVEL AM 12/10/2022 Results for 5:13 AM [facility] this procedure are in the results section. BASIC METABOLIC PANEL, AM 12/10/2022 CALCIUM TOTAL 5:13 AM [facility] POC GLUCOSE SCREEN Routine 12/10/2022 Results f or 1:38 AM [facility] this procedure are in the results section. POC GLUCOSE SCREEN Routine 12/09/2022 Results f or 11:18 PM [facility] this procedure are in the results section. POC VENOUS BLOOD GAS + Routine 12/09/2022 Resul ts for LACTATE 9:36 PM [facility] this procedure are in the results section. FRACTIONATED BILIRUBIN Routine 12/09/2022 Resul ts for 6:01 PM [facility] this procedure are in the results section. TOTAL PROTEIN Routine 12/09/2022 Results for 6:01 PM [facility] this procedure are in the results section. ASPARTATE AMINOTRANSFERASE Routine 12/09/2022 R esults for 6:01 PM [facility] this procedure are in the results section. ALANINE AMINOTRANSFERASE Routine 12/09/2022 Res ults for 6:01 PM [facility] this procedure are in the results section. ALKALINE PHOSPHATASE Routine 12/09/2022 Results for 6:01 PM [facility] this procedure are in the results section. ALBUMIN LEVEL Routine 12/09/2022 Results for 6:01 PM [facility] this procedure are in the results section. CALCIUM LEVEL Routine 12/09/2022 Results for 6:01 PM [facility] this procedure are in the results section. .GLOMERULAR FILTRATION Routine 12/09/2022 Resul ts for RATE 6:01 PM [facility] this procedure are in the results section. SERUM CREATININE Routine 12/09/2022 Results for 6:01 PM [facility] this procedure are in the results section. ELECTROLYTE PANEL Routine 12/09/2022 Results fo r 6:01 PM [facility] this procedure are in the results section. BLOOD UREA NITROGEN Routine 12/09/2022 Results for 6:01 PM [facility] this procedure are in the results section. GLUCOSE LEVEL Routine 12/09/2022 Results for 6:01 PM [facility] this procedure are in the results section. DIFFERENTIAL STAT 12/09/2022 Results for 6:01 PM [facility] this procedure are in the results section. .CBC STAT 12/09/2022 Results for 6:01 PM [facility] this procedure are in the results section. LACTATE DEHYDROGENASE Routine 12/09/2022 Result s for 6:01 PM [facility] this procedure are in the results section. APTT Routine 12/09/2022 Results for 6:01 PM [facility] this procedure are in the results section. PROTHROMBIN TIME Routine 12/09/2022 Results for 6:01 PM [facility] this procedure are in the results section. PHOSPHORUS LEVEL Routine 12/09/2022 Results for 6:01 PM [facility] this procedure are in the results section. MAGNESIUM LEVEL Routine 12/09/2022 Results for 6:01 PM [facility] this procedure are in the results section. COMPREHENSIVE METABOLIC Routine 12/09/2022 PANEL 6:01 PM [facility] COMPLETE BLOOD COUNT W/ Routine 12/09/2022 DIFFERENTIAL 6:01 PM [facility] AMMONIA LEVEL Routine 12/09/2022 Results for 6:01 PM [facility] this procedure are in the results section. COVID-19 (SARS-COV-2)PCR Routine 12/09/2022 R esults for - ASYMPTOMATIC - LT 6:01 PM [facility] this pro cedure are in the results section. HP MOLECULAR BLOOD Routine 12/04/2022 Results f or COLLECTION 10:56 AM [facility] this procedure are in the results section. ANA CRISTINA GRIFFIN SOLID TUMOR GENOMIC Routine 12/04/2022 ASSAY FUSIONS 2018 10:56 AM [facility] INTERPRETATION AND REPORT ANA CRISTINA GRIFFIN MDA CHRISTINE MUTATION Routine 12/04/2022 ANALYSIS PRECISION PANEL 10:56 AM [facility] INTERPRETATION AND REPORT MRI SKULL BASE WITH AND Routine 11/30/2022 Adenocarcinoma of Results for WITHOUT CONTRAST 11:12 AM [facility] nasopharynx this proced ure are in the results section. PETCT F18 FDG Routine 11/27/2022 Adenocarcinoma of Results f or (FLUORODEOXYGLUCOSE) WITH 3:57 PM [facility] nasoph arynx this procedure CONTRAST Malignant neoplasm are in th e of overlapping results sites of section. nasopharynx POC GLUCOSE SCREEN Routine 11/27/2022 Results f or 1:06 PM [facility] this procedure are in the results section. POC GLUCOSE SCREEN Routine 11/27/2022 Results f or 12:29 PM [facility] this procedure are in the results section. FRACTIONATED BILIRUBIN Routine 11/26/2022 Adenocarcinoma of Results for 1:07 PM [facility] nasopharynx this procedure are in the results section. TOTAL PROTEIN Routine 11/26/2022 Adenocarcinoma of Results f or 1:07 PM [facility] nasopharynx this procedure are in the results section. ASPARTATE AMINOTRANSFERASE Routine 11/26/2022 Adenocarcinoma of Results for 1:07 PM [facility] nasopharynx this procedure are in the results section. ALANINE AMINOTRANSFERASE Routine 11/26/2022 Adenocarcinoma o f Results for 1:07 PM [facility] nasopharynx this procedure are in the results section. ALKALINE PHOSPHATASE Routine 11/26/2022 Adenocarcinoma of Re sults for 1:07 PM [facility] nasopharynx this procedure are in the results section. ALBUMIN LEVEL Routine 11/26/2022 Adenocarcinoma of Results f or 1:07 PM [facility] nasopharynx this procedure are in the results section. CALCIUM LEVEL Routine 11/26/2022 Adenocarcinoma of Results f or 1:07 PM [facility] nasopharynx this procedure are in the results section. .GLOMERULAR FILTRATION Routine 11/26/2022 Adenocarcinoma of Results for RATE 1:07 PM [facility] nasopharynx this procedure are in the results section. SERUM CREATININE Routine 11/26/2022 Adenocarcinoma of Result s for 1:07 PM [facility] nasopharynx this procedure are in the results section. ELECTROLYTE PANEL Routine 11/26/2022 Adenocarcinoma of Resul ts for 1:07 PM [facility] nasopharynx this procedure are in the results section. BLOOD UREA NITROGEN Routine 11/26/2022 Adenocarcinoma of Res ults for 1:07 PM [facility] nasopharynx this procedure are in the results section. GLUCOSE LEVEL Routine 11/26/2022 Adenocarcinoma of Results f or 1:07 PM [facility] nasopharynx this procedure are in the results section. DIFFERENTIAL Routine 11/26/2022 Adenocarcinoma of Results fo r 1:07 PM [facility] nasopharynx this procedure are in the results section. .CBC Routine 11/26/2022 Adenocarcinoma of Results fo r 1:07 PM [facility] nasopharynx this procedure are in the results section. PROTHROMBIN TIME Routine 11/26/2022 Adenocarcinoma of Result s for 1:07 PM [facility] nasopharynx this procedure are in the results section. APTT Routine 11/26/2022 Adenocarcinoma of Results fo r 1:07 PM [facility] nasopharynx this procedure are in the results section. THYROID STIMULATING Routine 11/26/2022 Adenocarcinoma of Res ults for HORMONE 1:07 PM [facility] nasopharynx this procedure are in the results section. VITAMIN D 25 HYDROXY LEVEL Routine 11/26/2022 Adenocarcinoma of Results for 1:07 PM [facility] nasopharynx this procedure are in the results section. URIC ACID Routine 11/26/2022 Adenocarcinoma of Results fo r 1:07 PM [facility] nasopharynx this procedure are in the results section. PHOSPHORUS LEVEL Routine 11/26/2022 Adenocarcinoma of Result s for 1:07 PM [facility] nasopharynx this procedure are in the results section. MAGNESIUM LEVEL Routine 11/26/2022 Adenocarcinoma of Results for 1:07 PM [facility] nasopharynx this procedure are in the results section. LACTATE DEHYDROGENASE Routine 11/26/2022 Adenocarcinoma of R esults for 1:07 PM [facility] nasopharynx this procedure are in the results section. FREE THYROXINE Routine 11/26/2022 Adenocarcinoma of Results for 1:07 PM [facility] nasopharynx this procedure are in the results section. COMPREHENSIVE METABOLIC Routine 11/26/2022 Adenocarcinoma of PANEL 1:07 PM [facility] nasopharynx COMPLETE BLOOD COUNT W/ Routine 11/26/2022 Adenocarcinoma of DIFFERENTIAL 1:07 PM [facility] nasopharynx NGS BLOOD CONTROL Routine 11/26/2022 Adenocarcinoma of Re sults for 1:07 PM [facility] nasopharynx this procedure are in the results section. AP IHC HER2/ARCENIO MATERIAL Routine 11/26/2022 Adenocarcinoma o f REQUEST 12:43 PM [facility] nasopharynx AP IHC PD-L1 MATERIAL Routine 11/26/2022 Adenocarcinoma of REQUEST 12:43 PM [facility] nasopharynx ANA CRISTINA GRIFFIN PTEN MUTATION Routine 11/26/2022 Adenocarcinoma of Res ults for MATERIAL REQUEST 12:43 PM [facility] nasopharynx this proced ure are in the results section. ANA CRISTINA GRIFFIN MTOR MATERIAL Routine 11/26/2022 Adenocarcinoma of Res ults for REQUEST 12:43 PM [facility] nasopharynx this procedure are in the results section. ANA CRISTINA GRIFFIN ERBB2 MUTATION Routine 11/26/2022 Adenocarcinoma of Re sults for ANALAYSIS MATERIAL REQUEST 12:43 PM [facility] nasopharynx t his procedure are in the results section. ANA CRISTINA GRIFFIN EGFR MUTATION Routine 11/26/2022 Adenocarcinoma of Res ults for MATERIAL REQUEST 12:43 PM [facility] nasopharynx this proced ure are in the results section. ANA CRISTINA GRIFFIN ALK MUTATION Routine 11/26/2022 Adenocarcinoma of Resu lts for ANALAYSIS MATERIAL REQUEST 12:43 PM [facility] nasopharynx t his procedure are in the results section. ANA CRISTINA GRIFFIN NTRK3 FUSION Routine 11/26/2022 Adenocarcinoma of Resu lts for ANALYSIS MATERIAL REQUEST 12:43 PM [facility] nasopharynx th is procedure are in the results section. ANA CRISTINA GRIFFIN NTRK2 FUSION Routine 11/26/2022 Adenocarcinoma of Resu lts for ANALYSIS MATERIAL REQUEST 12:43 PM [facility] nasopharynx th is procedure are in the results section. ANA CRISTINA GRIFFIN NTRK1 FUSION Routine 11/26/2022 Adenocarcinoma of Resu lts for ANALYSIS MATERIAL REQUEST 12:43 PM [facility] nasopharynx th is procedure are in the results section. DIFFERENTIAL Routine 11/17/2022 Adenocarcinoma of Results fo r 12:11 PM [facility] nasopharynx this procedure are in the results section. .CBC Routine 11/17/2022 Adenocarcinoma of Results fo r 12:11 PM [facility] nasopharynx this procedure are in the results section. FRACTIONATED BILIRUBIN Routine 11/17/2022 Adenocarcinoma of Results for 12:11 PM [facility] nasopharynx this procedure are in the results section. TOTAL PROTEIN Routine 11/17/2022 Adenocarcinoma of Results f or 12:11 PM [facility] nasopharynx this procedure are in the results section. ASPARTATE AMINOTRANSFERASE Routine 11/17/2022 Adenocarcinoma of Results for 12:11 PM [facility] nasopharynx this procedure are in the results section. ALANINE AMINOTRANSFERASE Routine 11/17/2022 Adenocarcinoma o f Results for 12:11 PM [facility] nasopharynx this procedure are in the results section. ALKALINE PHOSPHATASE Routine 11/17/2022 Adenocarcinoma of Re sults for 12:11 PM [facility] nasopharynx this procedure are in the results section. ALBUMIN LEVEL Routine 11/17/2022 Adenocarcinoma of Results f or 12:11 PM [facility] nasopharynx this procedure are in the results section. CALCIUM LEVEL Routine 11/17/2022 Adenocarcinoma of Results f or 12:11 PM [facility] nasopharynx this procedure are in the results section. .GLOMERULAR FILTRATION Routine 11/17/2022 Adenocarcinoma of Results for RATE 12:11 PM [facility] nasopharynx this procedure are in the results section. SERUM CREATININE Routine 11/17/2022 Adenocarcinoma of Result s for 12:11 PM [facility] nasopharynx this procedure are in the results section. ELECTROLYTE PANEL Routine 11/17/2022 Adenocarcinoma of Resul ts for 12:11 PM [facility] nasopharynx this procedure are in the results section. BLOOD UREA NITROGEN Routine 11/17/2022 Adenocarcinoma of Res ults for 12:11 PM [facility] nasopharynx this procedure are in the results section. GLUCOSE LEVEL Routine 11/17/2022 Adenocarcinoma of Results f or 12:11 [facility] nasopharynx this procedure are in the results section. PROLACTIN Routine 11/17/2022 Adenocarcinoma of Results fo r 12:11 PM [facility] nasopharynx this procedure are in the results section. INSULIN-LIKE GROWTH FACTOR Routine 11/17/2022 Adenocarcinoma of Results for 1 12:11 PM [facility] nasopharynx this procedure are in the results section. TRIIODOTHYRONINE Routine 11/17/2022 Adenocarcinoma of Result s for 12:11 PM [facility] nasopharynx this procedure are in the results section. FREE THYROXINE Routine 11/17/2022 Adenocarcinoma of Results for 12:11 PM [facility] nasopharynx this procedure are in the results section. THYROID STIMULATING Routine 11/17/2022 Adenocarcinoma of Res ults for HORMONE 12:11 PM [facility] nasopharynx this procedure are in the results section. LUTEINIZING HORMONE Routine 11/17/2022 Adenocarcinoma of Res ults for 12:11 PM [facility] nasopharynx this procedure are in the results section. FOLLICLE STIMULATING Routine 11/17/2022 Adenocarcinoma of Re sults for HORMONE LEVEL 12:11 PM [facility] nasopharynx this procedure are in the results section. TESTOSTERONE LEVEL Routine 11/17/2022 Adenocarcinoma of Resu lts for 12:11 PM [facility] nasopharynx this procedure are in the results section. ESTRADIOL LEVEL Routine 11/17/2022 Adenocarcinoma of Results for 12:11 PM [facility] nasopharynx this procedure are in the results section. ADRENOCORTICOTROPIC Routine 11/17/2022 Adenocarcinoma of Res ults for HORMONE 12:11 PM [facility] nasopharynx this procedure are in the results section. CORTISOL, TOTAL Routine 11/17/2022 Adenocarcinoma of Results for 12:11 PM [facility] nasopharynx this procedure are in the results section. PROTHROMBIN TIME Routine 11/17/2022 Adenocarcinoma of Result s for 12:11 PM [facility] nasopharynx this procedure are in the results section. APTT Routine 11/17/2022 Adenocarcinoma of Results fo r 12:11 PM [facility] nasopharynx this procedure are in the results section. COMPLETE BLOOD COUNT W/ Routine 11/17/2022 Adenocarcinoma of DIFFERENTIAL 12:11 PM [facility] nasopharynx COMPREHENSIVE METABOLIC Routine 11/17/2022 Adenocarcinoma of PANEL 12:11 PM [facility] nasopharynx HEPATITIS C VIRUS ANTIBODY Routine 11/17/2022 Adenocarcinoma of Results for 12:11 PM [facility] nasopharynx this procedure are in the results section. PATHOLOGY OUTSIDE Routine 10/16/2022 Results fo r INTERPRETATION this procedur e are in the results section. after 09/25/2022 Results MRI Orbits with and without Contrast (09/13/2023 11:51 AM [facility])Only the most recent of2 resultswithin the time period is included. Anatomical Region Laterality Modality Head Magnetic Resonance Specimen (Source) Anatomical Collection Method Collection Time Re ceived Time Location / / Volume Laterality 09/13/2023 12:11 PM [facility] Impressions 09/13/2023 12:37 PM [facility] Probable stable posttreatment changes given patient motion. No cervical adenopathy. ACTIONABLE ITEMS/RECOMMENDATIONS: None. Narrative 09/13/2023 12:37 PM [facility] FULL RESULT: Examination: MRI ORBITS W WO CONTRAST on 09/13/2023 11:51 AM. 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 INDICATION: surveillance nasopharynx car cinoma COMPARISON: 04/22/2023 and 11/30/2022. TECHNIQUE: MRI of the orbits without and with intravenous contrast was performed. FINDINGS: Moderate patient motion due to snoring. Primary site: The enhancing lobulated soft tissue in t he left nasopharynx has resolved since 11/30/2022. Mild residual asymmetry is believed to be treatment - related, stable since 04/22/2023. Bone/Neural foramina: Subtle asymmetric abnormal marrow signal and enhancement in the left skull base marked on series 2, image 25 is also stable appearing sclerotic on CT from 02/11/2023. Symmetric enhancement of bilateral cavernous sinuses and foramen ovale. Intracranial: Visible portions of the brain are normal . The flow voids are preserved. Extracranial: T2 hyperintense mucosal thickening in th e sphenoid sinuses. Stable bilateral mastoid fluid. No retropharyngeal or cervical adenopath y given motion. Procedure Note Elina Christie MD - 09/13/2023 FULL RESULT: Examination: MRI ORBITS W WO CONTRAST on 09/13/2023 11:51 AM. 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 INDICATION: surveillance nasopharynx car cinoma COMPARISON: 04/22/2023 and 11/30/2022. TECHNIQUE: MRI of the orbits without and with intravenous contrast was performed. FINDINGS: Moderate patient motion due to snoring. Primary site: The enhancing lobulated soft tissue in t he left nasopharynx has resolved since 11/30/2022. Mild residual asymmetry is believed to be treatment - related, stable since 04/22/2023. Bone/Neural foramina: Subtle asymmetric abnormal marrow signal and enhancement in the left skull base marked on series 2, image 25 is also stable appearing sclerotic on CT from 02/11/2023. Symmetric enhancement of bilateral cavernous sinuses and foramen ovale. Intracranial: Visible portions of the brain are normal . The flow voids are preserved. Extracranial: T2 hyperintense mucosal thickening in th e sphenoid sinuses. Stable bilateral mastoid fluid. No retropharyngeal or cervical adenopath y given motion. IMPRESSION: Probable stable posttreatment changes gi raghavendra patient motion. No cervical adenopathy. ACTIONABLE ITEMS/RECOMMENDATIONS: None. Lindy GALE IMG MRI ORDERABLES IGF-1 (09/13/2023 9:29 AM [facility])Only the most recent of3 resultswithin the time period is included. athologist Signature IGF-1, LC/MS, 134 37 - 208 09/16/2023 [facility] S ng/mL 4:11 PM [facility] CAROLYN IGF Z-score 0.84 -2.0 - 2.0 09/16/2023 [facility] SD 4:11 PM BRANDAN LEON Comment: ADDITIONAL INFORMATIO N This test was developed and its performa nce characteristics determined by [facility] in a manner co nsistent with CLIA requirements. This test has not been sisi ared or approved by the U.S. Food and Drug Administration. Test Performed by: [facility] [address] [place] [address] Transplant Surgeon: Yonathan Guzman M.D. Ph. D.; CLIA# [id number] Specimen Anatomical Collection Method / Collection Time Recei alysa Time (Source) Location / Volume Laterality Blood Venipuncture / 09/13/2023 9:29 09/13/2023 9:29 Unknown AM [facility] Lindy GALE LAB BLOOD ORDERABLES Performing Organization Address City/State/ZIP Code Phon e Number [facility] CAROLYN ACTH (09/13/2023 9:29 AM [facility])Only the most recent of4 resultswithin the time period is included. athologist [facility] ACTH 16 7 - 63 pg/mL 09/13/2023 [place] 10:16 AM [facility] Specimen Anatomical Collection Method / Collection Time Recei alysa Time (Source) Location / Volume Laterality Blood Venipuncture / 09/13/2023 9:29 09/13/2023 9:29 Unknown AM [facility] Narrative [place] - 09/13/2023 10:16 AM [facility] Reference range established based on adult population (7 - 10am draws). No established reference values for p.m. draws. Results greater than 1826 pg/mL may not be reliable due to matrix effect with extended dilution as it exceeds the shrink pit operator's recommended limit. ACTH reference intervals are established for the morni ng hours from 7-10 am. Due to the circad katie rhythm of ACTH levels in plasma, the sample collection time must be noted. Caution should be exercised when interpreting such values and done in conjunction with clinical context. Lindy GALE LAB BLOOD ORDERABLES Performing Organization Address [facility] Phon e Number [facility] [place] [address] LINSEY JIMENEZ [address] [facility], [facility] [address] Prolactin (09/13/2023 9:29 AM [facility])Only the most recent of3 resultswithin the time period is included. athologist Signature Prolactin Level 17.4 4.8 - 23.3 09/13/2023 [place] MD BLACK ON ng/mL 2:43 PM [facility] Specimen Anatomical Collection Method / Collection Time Recei alysa Time (Source) Location / Volume Laterality Blood Venipuncture / 09/13/2023 9:29 09/13/2023 9:29 Unknown AM [facility] Narrative [facility] - 2:43 PM [facility] Results greater than 4700.0 ng/mL may no t be reliable due to matrix effect with extended dilution as it exceeds the manu facturer s recommended limit. Caution should be e xercised when interpreting such values and done in conjunction with clinical contex t. Lindy GALE LAB BLOOD ORDERABLES Performing Organization Address [facility] Phon e Number [facility] Unless otherwise noted, [place] [address] [place] all lab tests performed by: Division of Pathology and Laboratory Medicine [facility] Estradiol (Women) (09/13/2023 9:29 AM [facility])Only the most recent of3 resultswithin the time period is included. athologist Signature Estradiol <11 pg/mL 09/13/2023 2:43 [facility] PM [facility] Specimen Anatomical Collection Method / Collection Time Recei alysa Time (Source) Location / Volume Laterality Blood Venipuncture / 09/13/2023 9:29 09/13/2023 9:29 Unknown AM [facility] AM [facility] Narrative [facility] - 3 2:43 PM [facility] Estradiol Reference Ranges Adult Female: Follicular: 31 - 90 pg/mL Luteal: 60 - 232 pg/mL Ovulation: 60 - 533 pg/mL Postmenopause: < 138 pg/ml Patients treated with Fulvestrant will s how falsely increase in estradiol concentrations due to cross-reaction. For further information or assistance, please contact pathologist. Lindy GALE LAB BLOOD ORDERABLES Performing Organization Address City/[facility]/ZIP Code Phon e Number [facility] Unless otherwise noted, [place] [address] CENTER all lab tests performed by: Division of Pathology and Laboratory Medicine [address] [facility] Total T3 (09/13/2023 9:29 AM [facility])Only the most recent of3 resultswithin the time period is included. athologist Signature Triiodothyronine 110 80 - 200 09/13/2023 [place] ng/dL 10:12 AM [facility] Specimen Anatomical Collection Method / Collection Time Recei alysa Time (Source) Location / Volume Laterality Blood Venipuncture / 09/13/2023 9:29 09/13/2023 9:29 Unknown AM [facility] AM [facility] Lindy GALE LAB BLOOD ORDERABLES Performing Organization Address City/[facility]/ZIP Code Phon e Number [place], [place] [id number] [place] [address], [facility] [address] TSH (09/13/2023 9:29 AM [facility])Only the most recent of4 resultswithin the time period is included. athologist Signature Thyroid 1.68 0.27 - 09/13/2023 [place] Stimulating 4.20 10:12 AM [facility] Hormone mcunit/mL Specimen Anatomical Collection Method / Collection Time Recei alysa Time (Source) Location / Volume Laterality Blood Venipuncture / 09/13/2023 9:29 09/13/2023 9:29 Unknown AM [facility] AM [facility] Lindy GALE LAB BLOOD ORDERABLES Performing Organization Address City/[facility]/ZIP Code Phon e Number [place], [place] [id number] [place] [address], [facility] [address] Free T4 (09/13/2023 9:29 AM [facility])Only the most recent of4 resultswithin the time period is included. athologist Signature T4 (Thyroxine) 1.15 0.93 - 1.70 09/13/2023 [place] Free ng/dL 10:12 AM [facility] Specimen Anatomical Collection Method / Collection Time Recei alysa Time (Source) Location / Volume Laterality Blood Venipuncture / 09/13/2023 9:29 09/13/2023 9:29 Unknown AM [facility] AM [facility] Lindy GALE LAB BLOOD ORDERABLES Performing Organization Address City/[facility] [place] [address] [place] [address] [facility], [facility] [address] LH (09/13/2023 9:29 AM [facility])Only the most recent of3 resultswithin the time period is included. athologist Signature Luteinizing 19.9 mIU/mL 09/13/2023 [facility] Hormone 2:43 PM [facility] Specimen Anatomical Collection Method / Collection Time Recei alysa Time (Source) Location / Volume Laterality Blood Venipuncture / 09/13/2023 9:29 09/13/2023 9:29 Unknown AM [facility] AM [facility] Narrative [facility] - 2:43 PM [facility] Luteinizing Hormone Reference Ranges Female: Follicular: 2.4 - 12.6 mIU/mL Luteal: 1.0 - 11.4 mIU/mL Ovulation: 14.0 - 95.6 mIU/mL Post-menopause: 7.7 - 58.5 mIU/mL Lindy GALE LAB BLOOD ORDERABLES Performing Organization Address City/State/[facility] Code Phon e Number [facility] Unless otherwise noted, [place] [address] [place] all lab tests performed by: Division of Pathology and Laboratory Medicine Brian Hodges [facility] (09/13/2023 9:29 AM [facility])Only the most recent of3 resultswithin the time period is included. athologist Signature Follicle 37.5 mIU/mL 09/13/2023 [facility] Stimulating 2:43 PM [facility] Hormone Specimen Anatomical Collection Method / Collection Time Recei alysa Time (Source) Location / Volume Laterality Blood Venipuncture / 09/13/2023 9:29 09/13/2023 9:29 Unknown AM [facility] AM [facility] Narrative [facility] - 2:43 PM [facility] Follicle Stimulating Hormone Reference Ranges Female: Follicular: 3.5 - 12.5 mIU/mL Luteal: 1.7 - 7.7 mIU/mL Ovulation: 4.7 - 21.5 mIU/mL Post-menopause: 25.8 - 134.8 mIU/mL Lindy GALE LAB BLOOD ORDERABLES Performing Organization Address City/State/[facility] Code Phon e Number [facility] Unless otherwise noted, [place] [address] CENTER all lab tests performed by: Division of Pathology and Laboratory Medicine Jasmyne5 Michelle Hodges (ABNORMAL) Total Cortisol (09/13/2023 9:29 AM [facility])Only the most recent of4 resultswithin the time period is included. athologist Signature Cortisol 4.24 (L) 4.82 - 09/13/2023 [place] 19.50 10:12 AM [facility] mcg/dL Specimen Anatomical Collection Method / Collection Time Recei alysa Time (Source) Location / Volume Laterality Blood Venipuncture / 09/13/2023 9:29 09/13/2023 9:29 Unknown AM [facility] AM [facility] - 09/13/2023 10:12 AM [facility] Cortisol reference intervals are established for the morning hours from 6-10 am and afternoon hours 4-8 pm. Due to circadian rhythm of cortisol levels in serum and plasma, the sample collection time mus t be noted. Caution should be exercised when interpreting such values and done in conjunction with clinical context. Serum Cortisol Reference Ranges for >/= 21 years old: Morning (6-10 am): 4.82 - 19.5 mcg/dL Afternoon (4-8 pm): 2.47 - 11.9 mcg/dL Lindy GALE LAB BLOOD ORDERABLES Performing Organization Address City/[facility] [place] [address] [place] [address] [facility], [facility] [address] .Serum Creatinine (04/22/2023 12:28 PM CDT)Only the most recent of44 results within the time period is included. athologist Signature Creatinine 0.80 0.51 - 0.95 [place] mg/dL Comment: Testing performed at [facility], [address] [place] [address] Specimen Anatomical Collection Method Collection Time Receive d Time (Source) Location / / Volume Laterality Blood 04/22/2023 12:28 04/22/2023 PM CDT 12:29 PM CDT Narrative [place] - 04/22/2023 1:04 PM CDT Coordinate all on same day. Ok to schedu le 1-2 weeks following 04/14 to coordinate appts Winter Luu MD LAB BLOOD ORDERABLES Performing Organization Address City/State/[place] [address], [place] [address] (ABNORMAL) .CBC (04/22/2023 12:28 PM CDT)Only the most recent of44 resultswithin the time period is included. athologist Signature WBC 6.5 4.0 - 11.0 [place] K/uL Comment: All components of the CBC perfo rmed at [facility], [address] [place] [address] 77 3 RBC 4.39 4.00 - 5.50 M/uL [place] Comment: All components of the CBC perfo rmed at [facility], [address] [place] [address] 77 3 Hgb 14.3 12.0 - 16.0 gm/dL [place] Comment: As part of CBC or as an individ ual orderable testing performed at [facility], [address] [place] [address] Hct 43.7 37.0 - 47.0 % [place] Comment: As part of CBC testing performe d at [facility], [address] [place] [address] MCV 100 (H) 82 - 98 fL [place] Comment: As part of CBC testing performe d at [facility], [address] [place] [address] MCH 32.6 (H) 27.0 - 31.0 pg [place] Comment: As part of CBC testing performe d at [facility], [address] [place] [address], [place] [address] MCHC 32.7 31.0 - 36.0 gm/dL [place] Comment: As part of CBC testing performe d at [facility], [address] [place] [address], [place] [address] RDW-SD 45.6 35.1 - 46.3 fL [place] Comment: As part of CBC testing performe d at [facility], [address] [place] [address], [place] [address] RDW-CV 12.1 12.0 - 15.5 % [place] Comment: As part of CBC testing performe d at [facility], [address] [place] [address], [place] [address] Platelet count 150 140 - 440 K/uL [facility] Comment: As part of CBC or an individual orderable testing performed at [facility], [address] [place] [address] MPV 9.6 4.0 - 10.4 fL [place] Comment: As part of CBC testing performe d at [facility], [address] [place] [address], [place] [address] Specimen Anatomical Collection Method Collection Time Receive d Time (Source) Location / / Volume Laterality Blood 04/22/2023 12:28 04/22/2023 PM CDT 12:29 PM CDT Narrative [place] - 04/22/2023 12:33 PM CDT Coordinate all on same day. Ok to schedu le 1-2 weeks following 04/14 to coordinate appts Winter Luu MD LAB BLOOD ORDERABLES Performing Organization Address City/State/[place] [address], [place] [address] Glomerular Filtration Rate (04/22/2023 12:28 PM CDT)Only the most recent of44 resultswithin the time period is included. athologist Signature eGFR 86 >=60 [place] mL/min/1.73 sq. m Comment: The eGFRcr is [...] criteria for CKD. Testing performed at [facility], [address] [place] [address] Specimen Anatomical Collection Method Collection Time Receive d Time (Source) Location / / Volume Laterality Blood 04/22/2023 12:28 04/22/2023 PM CDT 12:29 PM CDT Narrative [place] - 04/22/2023 1:04 PM CDT Coordinate all on same day. Ok to schedu le 1-2 weeks following 04/14 to coordinate appts Winter Luu MD LAB BLOOD ORDERABLES Performing Organization Address City/State/[place] [address], [place] [address] (ABNORMAL) Differential (04/22/2023 12:28 PM CDT)Only the most recent of44 resultswithin the time period is included. athologist Signature Neutrophil % 86.1 (H) 42.0 - [place] 66.0 % Comment: All components of the Different ial performed at [facility], [address] [place] [address] Lymphocyte % 10.9 (L) 24.0 - 44.0 % [place] Comment: As part of the Differential hailey ting performed at [facility], [address] [place] [address], [place] [address] Monocyte % 2.3 2.0 - 7.0 % [place] Comment: As part of the Differential hailey ting performed at [facility], [address] [place] [address], [place] [address] Eosinophil % 0.2 (L) 1.0 - 4.0 % [place] Comment: As part of the Differential hailey ting performed at [facility], [address] [place] [address], [place] [address] Basophil % 0.2 0.0 - 1.0 % [place] Comment: As part of the Differential hailey ting performed at [facility], [address] [place] [address], [place] [address] IGRE % 0.3 0.0 - 0.4 % [place] Comment: IGRE % count includes Metamyelocytes, My elocytes, and Promyelocytes. As part of the Differential testing perf ormed at [facility], [address] [place] [address], [place] [address] Neutrophil Abs 5.62 1.70 - 7.30 K/uL [facility] Comment: As part of the Differential hailey ting performed at [facility], [address] [place] [address], [place] [address] Lymphocyte Abs 0.71 (L) 1.00 - 4.80 K/uL [facility] Comment: As part of the Differential hailey ting performed at [facility], [address] [place] [address], [place] [address] Monocyte Abs 0.15 0.08 - 0.70 K/uL [facility] Comment: As part of the Differential hailey ting performed at [facility], [address] [place] [address], [place] [address] Eosinophil Abs 0.01 (L) 0.04 - 0.40 K/uL [facility] Comment: As part of the Differential hailey ting performed at [facility] [facility], [address] [place] [address], [place] [address] Basophil Abs 0.01 0.00 - 0.10 K/uL [facility] Comment: As part of the Differential hailey ting performed at [facility], [address] [place] [address] IG Abs 0.02 0.00 - 0.04 K/uL [place] Comment: As part of the Differential hailey ting performed at [facility], [address] [place] [address] Specimen Anatomical Collection Method Collection Time Receive d Time (Source) Location / / Volume Laterality Blood 04/22/2023 12:28 04/22/2023 PM CDT 12:29 PM CDT [facility] - 04/22/2023 12:33 PM CDT Coordinate all on same day. Ok to schedu le 1-2 weeks following 04/14 to coordinate appts Winter Luu MD LAB BLOOD ORDERABLES Performing Organization Address City/[facility]/ZIP Code Phon e Number [place], [place] [id number] [place] [address], LCC1 [id number] BUN (04/22/2023 12:28 PM CDT)Only the most recent of44 resultswithin the time period is included. athologist Signature BUN 12 6 - 23 mg/dL [place] Comment: Testing performed at [facility], [address] [place] [address] Specimen Anatomical Collection Method Collection Time Receive d Time (Source) Location / / Volume Laterality Blood 04/22/2023 12:28 04/22/2023 PM CDT 12:29 PM CDT [facility] - 04/22/2023 1:04 PM CDT Coordinate all on same day. Ok to schedu le 1-2 weeks following 04/14 to coordinate appts Winter Luu MD LAB BLOOD ORDERABLES Performing Organization Address City/State/ZIP Code Phon [place] [facility] [place] [address], C1 [address] (ABNORMAL) Electrolyte Panel (04/22/2023 12:28 PM CDT)Only the most recent of45 resultswithin the time period is included. athologist Signature Sodium Lvl 135 (L) 136 - 145 [place] mEq/L Comment: Testing performed at [facility], [address] [place] [address] Potassium Lvl 4.7 3.5 - 5.1 mEq/L [facility] Comment: Testing performed at [facility], [address] [place] [address] Chloride 96 (L) 98 - 107 mEq/L [place] Comment: Testing performed at [facility], [address] [place], [place] [id number] CO2 21 (L) 22 - 29 mEq/L [place] Comment: Testing performed at [facility], [address] [place] [address] Anion Gap 18 (H) 4 - 14 mEq/L [place] Comment: Testing performed at [facility], [address] [place] [address] Specimen Anatomical Collection Method Collection Time Receive d Time (Source) Location / / Volume Laterality Blood 04/22/2023 12:28 04/22/2023 PM CDT 12:29 PM CDT Narrative [place] - 04/22/2023 1:04 PM CDT Coordinate all on same day. Ok to schedu le 1-2 weeks following 04/14 to coordinate appts Winter Luu MD LAB BLOOD ORDERABLES Performing Organization Address City/State/[place] [address], LCC1 [address] Fractionated Bilirubin (03/11/2023 11:15 AM CDT)Only the most recent of24 resultswithin the time period is included. athologist Signature Bili Total <0.3 <=1.2 mg/dL [place] Comment: Direct and indirect bilirubin will not b e reported when Total bilirubin result is <0.3 mg/dL Indocyanine Green (ICG) may cause falsel y elevated bilirubin results. Total and direct bilirubin must not be measured from samples containing indocyanine green. False elevation of total bilirubin can b e seen in patients with IgG concentrations above 28 g/L. Testing performed at [facility], [address] [place] [address] Specimen Anatomical Collection Method Collection Time Receive d Time (Source) Location / / Volume Laterality Blood 03/11/2023 11:15 03/11/2023 AM CDT 11:16 AM CDT [facility] - 03/11/2023 11:40 AM CDT Follow up at 1120, lab prior and infusio n after Lorena Hdez APRN LAB BLOOD ORDERABLES Performing Organization Address City/[facility]/ZIP Code Phon e Number [place], [place] [id number] [place] [address], [facility] [address] (ABNORMAL) ALT (03/11/2023 11:15 AM CDT)Only the most recent of24 resultswithin the time period is included. P athologist Signature ALT 40 (H) <=33 U/L [place] Comment: Testing performed at [facility], [address] [place] [address] Specimen Anatomical Collection Method Collection Time Receive d Time (Source) Location / / Volume Laterality Blood 03/11/2023 11:15 03/11/2023 AM CDT 11:16 AM CDT [facility] - 03/11/2023 11:40 AM CDT Follow up at 1120, lab prior and infusio n after Lorena Hdez APRN LAB BLOOD ORDERABLES Performing Organization Address City/[facility]/[place] [address], [facility] [address] Aspartate Aminotransferase (03/11/2023 11:15 AM CDT)Only the most recent of24 resultswithin the time period is included. P athologist Signature AST 26 <=32 U/L [place] Comment: Testing performed at [facility], [address] [place] [address] Specimen Anatomical Collection Method Collection Time Receive d Time (Source) Location / / Volume Laterality Blood 03/11/2023 11:15 03/11/2023 AM CDT 11:16 AM CDT [facility] - 03/11/2023 11:40 AM CDT Follow up at 1120, lab prior and infusio n after Lorena Hdez APRN LAB BLOOD ORDERABLES Performing Organization Address City/[facility]/ZIP Code Phon e Number [place], [place] [phone] [place] [address], [facility] [address] Total Protein (03/11/2023 11:15 AM CDT)Only the most recent of24 resultswithin the time period is included. athologist Signature Total Protein 7.0 6.4 - 8.3 [place] g/dL Comment: Testing performed at [facility], [address] [place] [address] Specimen Anatomical Collection Method Collection Time Receive d Time (Source) Location / / Volume Laterality Blood 03/11/2023 11:15 03/11/2023 AM CDT 11:16 AM CDT [facility] - 03/11/2023 11:40 AM CDT Follow up at 1120, lab prior and infusio n after Lorena Hdez APRN LAB BLOOD ORDERABLES Performing Organization Address City/State/[facility] [place] [address], [facility] [address] (ABNORMAL) Alkaline Phosphatase (03/11/2023 11:15 AM CDT)Only the most recent of 24 resultswithin the time period is included. athologist Signature Alk Phos 107 (H) 35 - 104 [place] U/L Comment: Testing performed at [facility], [address] [place] [address] Specimen Anatomical Collection Method Collection Time Receive d Time (Source) Location / / Volume Laterality Blood 03/11/2023 11:15 03/11/2023 AM CDT 11:16 AM CDT [facility] - 03/11/2023 11:40 AM CDT Follow up at 1120, lab prior and infusio n after Lorena Garza Lemuel [employer] P[employer]ER [employer] LAB BLOOD ORDERABLES Performing Organization Address City/[facility]/[place] [address], [facility] [address] (ABNORMAL) Magnesium Level (03/11/2023 11:15 AM CDT)Only the most recent of42 resultswithin the time period is included. athologist Signature Magnesium 1.4 (L) 1.6 - 2.6 [place] mg/dL Comment: Testing performed at [facility], [address] [place] [address] Specimen Anatomical Collection Method Collection Time Receive d Time (Source) Location / / Volume Laterality Blood 03/11/2023 11:15 03/11/2023 AM CDT 11:16 AM CDT Narrative [place] - 03/11/2023 11:40 AM CDT Follow up at 1120, lab prior and infusio n after Lorena Riojasjazmin Hdez APRN LAB BLOOD ORDERABLES Performing Organization Address City/[facility]/[place] [address], [facility] [address] (ABNORMAL) Glucose Level (03/11/2023 11:15 AM CDT)Only the most recent of43 resultswithin the time period is included. athologist Signature Glucose Level 324 (H) 70 - 99 [place] mg/dL Comment: Effective 05/27/16, the glucose reference intervals have been updated based on [place] [employer] guidelines (Standards of Medical Care in Diabetes 2016. Diabetes Care 2016; 39: S13-S22). Fasting blood glucose: Normal: 70-99 mg/dL Impaired fasting glucose (increased risk for diabetes or pre-diabetes): 100- 125 mg/dL Diabetes mellitus: >/=126 mg/dL Random blood glucose: Normal: 70-199 mg/dL Note: Random glucose >100 mg/dL is assoc iated with increased risk for diabetes Testing performed at [facility], [address] [place] [address] Specimen Anatomical Collection Method Collection Time Receive d Time (Source) Location / / Volume Laterality Blood 03/11/2023 11:15 03/11/2023 AM CDT 11:16 AM CDT [facility] - 03/11/2023 11:40 AM CDT Follow up at 1120, lab prior and infusio n after Lorena Hdez APRN LAB BLOOD ORDERABLES Performing Organization Address City/[facility] [place] [address], [facility] [address] Calcium Level (03/11/2023 11:15 AM CDT)Only the most recent of43 resultswithin the time period is included. P athologist Signature Calcium Lvl 9.3 8.4 - 10.2 [place] mg/dL Comment: Testing performed at [facility], [address] [place] [address] Specimen Anatomical Collection Method Collection Time Receive d Time (Source) Location / / Volume Laterality Blood 03/11/2023 11:15 03/11/2023 AM CDT 11:16 AM CDT [facility] - 03/11/2023 11:40 AM CDT Follow up at 1120, lab prior and infusio n after Lorena Hdez APRN LAB BLOOD ORDERABLES Performing Organization Address City/[facility] [place] [address] [place] [address] Albumin Level (03/11/2023 11:15 AM CDT)Only the most recent of24 resultswithin the time period is included. P athologist Signature Albumin Lvl 3.9 3.5 - 5.2 [place] gm/dL Comment: Testing performed at [facility], [address] [place] [address] Specimen Anatomical Collection Method Collection Time Receive d Time (Source) Location / / Volume Laterality Blood 03/11/2023 11:15 03/11/2023 AM CDT 11:16 AM CDT Narrative [place] - 03/11/2023 11:40 AM CDT Follow up at 1120, lab prior and infusio n after Lorena Hdze APRN LAB BLOOD ORDERABLES Performing Organization Address City/[facility] Code Phon e Number [facility] [place] [address] [facility] [address] [facility], [facility] [address] (ABNORMAL) POC Glucose Screen (02/16/2023 12:02 PM [...] Sample Type Capillary POC TEL[place] Performing Lab [facility] POC TELCO R Comment: [facility], [address] [place] [address]; Lab Direct or: Chula Jacob MD; Waived Point of Care Testing - Gabrielle Muleler MD Specimen Anatomical Collection Method Collection Time Receive d Time (Source) Location / / Volume Laterality Blood 02/16/2023 12:02 02/16/2023 PM CDT 12:02 PM CDT Ashleigh Rangel MD POCT ORDERABLES - DEVIC E Performing Organization Address City/[facility] Phon e Number POC TELCOR Unless otherwise noted, [place] [address] lab tests performed by: Division of Pathology and Laboratory Medicine [address] [place] [address] (ABNORMAL) Anti-Xa Level (02/16/2023 11:13 AM CDT) athologist Signature Anti-Xa Level 1.45 (H) 0.00 - [facility] 0.10 [place] unit/mL [facility] Comment: Anti-Xa Level (Heparin assay for [...] Ref: Chest 2008; 133;141S-1598S Hep Type Enoxaparin [facility] Specimen Anatomical Collection Method Collection Time Receive d Time (Source) Location / / Volume Laterality Blood 02/16/2023 11:13 02/16/2023 AM CDT 11:21 AM CDT Narrative [facility] - 3 1:11 PM CDT Nurse please coordinate with lab to draw n Anti-Xa level (low molecular weight heparin level) 4 hours after 02/16/23 morning kourtney xaparin dose is given. Angeli Wang MD LAB BLOOD ORDERABLES Performing Organization Address City/State/ZIP Code Phon e Number [facility] Unless otherwise noted, [address] all lab tests performed by: Division of Pathology and Laboratory Medicine [address] [place] [address] Phosphorus Level (02/16/2023 6:15 AM CDT)Only the most recent of40 resultswithin the time period is included. P athologist Signature Phosphorus 4.3 2.5 - 4.5 [facility] mg/dL [facility] Specimen Anatomical Collection Method Collection Time Receive d Time (Source) Location / / Volume Laterality Blood 02/16/2023 6:15 AM 3 6:59 CDT AM CDT DEEPTI Harrell APRN LAB BLOOD ORDERABLES Performing Organization Address City/State/ZIP [facility] Phon e Number [facility] Unless otherwise noted, [address] all lab tests performed by: Division of Pathology and Laboratory Medicine [address] [place] [address] General Laboratory Add-On Test (02/12/2023 9:33 AM CDT)Only the most recent of4 resultswithin the time period is included. Patholo gist Method Time Signature Ordered Test Added [facility] Test Needed procalcitonin [facility] Specimen Anatomical Collection Method Collection Time Receive d Time (Source) Location / / Volume Laterality Existing 02/12/2023 9:33 AM 3 9:34 CDT AM CDT Kimberli GALE LAB BLOOD ORDERABLES Performing Organization Address City/[facility]/ZIP Code Phon e Number [facility] Unless otherwise noted, [address] all lab tests performed by: Division of Pathology and Laboratory Medicine [address] [facility] (ABNORMAL) Procalcitonin (02/12/2023 5:34 AM CDT)Only the most recent of4 resultswithin the time period is included. P athologist Signature Procalcitonin 0.38 (H) <=0.08 [facility] ng/mL [facility] Comment: Procalcitonin > 2.00 ng/mL: Procalcit [...] with extended dilution as it exceeds the shrink pit operator's recommended limit. Caution should be exercised when interpreting such values and done in conjunction with clinical context. Specimen Anatomical Collection Method Collection Time Receive d Time (Source) Location / / Volume Laterality Blood 02/12/2023 5:34 AM 3 6:18 CDT AM CDT DEEPTI Harrell APRN LAB BLOOD ORDERABLES Performing Organization Address City/State/ZIP Code Phon e Number [facility] Unless otherwise noted, [place] [address] CENTER all lab tests performed by: Division of Pathology and Laboratory Medicine [address] [facility] [address] Maxillofacial Area with Contrast (02/11/2023 4:15 [...] athologist Signature CK 125 26 - 192 [facility] U/L [facility] Specimen Anatomical Collection Method Collection Time Receive d Time (Source) Location / / Volume Laterality Blood 02/09/2023 5:37 AM 6:08 CDT AM CDT Shelby GALE LAB BLOOD ORDERABLES Performing Organization Address City/State/ZIP Code Phon e Number [facility] CANCER Unless otherwise noted, [place] [address] [place] all lab tests performed by: Division of Pathology and Laboratory Medicine [address] [place] [address] US Arm Venous Doppler Bilateral (02/08/2023 6:28 [...] PM CDT Examination: US ARM VENOUS DOPPLER [facility], 02/08/2023 6:28 PM Clinical History: Adenoid cystic [...] - 02/08/2023 Examination: US ARM VENOUS DOPPLER [facility], 02/08/2023 6:28 PM Clinical History: Adenoid cystic [...] was not perform ed in this study. ([employer] Study). Diastology: Indeterminate. Right Ventricle: The right [...] purpose. For additional information please refer to http://education.[employer]eg[employer].com.[employer]/fa q/BTY840 (This link is being provided for informa tional/ educational purposes only.) The performance of this assay has not be en clinically validated in patients less than 2 years old. Lab test performed by: Lab Mnemonic: [facility] [address] [id number] JOSE ELIAS MELÉNDEZ MD Specimen Anatomical Collection Method Collection Time Receive d Time (Source) Location / / Volume Laterality Blood 02/07/2023 6:52 AM 3 7:22 CDT AM CDT Thao Soria MD LAB BLOOD ORDERABLES Performing Organization Address City/[facility] Phon e Number [facility] Hepatitis C Virus Ab (02/07/2023 6:52 AM CDT)Only the most recent of2 results within the time period is included. [facility] Method Time Signature HCVAb. Non Reactive Non Reactive [facility] CANCER [place] Comment: Antibody detection in the immunocompromi sed [...] AM 3 8:32 CDT AM CDT Thao Sorai MD LAB BLOOD ORDERABLES Performing Organization Address City/[facility] Phon e Number [facility] CANCER Unless otherwise noted, [address] all lab tests performed by: Division of Pathology and Laboratory Medicine [address] [place] [address] Hepatitis B Total Ig Core Ab (SCREENING) (anti-HBc total Ig; HBcAb total Ig) (02/07/2023 6:52 AM CDT) [facility] Method Time Signature HBcAb. Non Reactive Non Reactive [facility] Specimen Anatomical Collection Method Collection Time Receive d Time (Source) Location / / Volume Laterality Blood 02/07/2023 6:52 AM 3 8:32 CDT AM CDT Thao Soria MD LAB BLOOD ORDERABLES Performing Organization Address City/[facility]/ZIP [facility] Phon e Number [facility] Unless otherwise noted, [address] all lab tests performed by: Division of Pathology and Laboratory Medicine [address] [place] [address] Hepatitis B Surface Ag (02/07/2023 6:52 AM CDT) [facility] Method Time Signature HBsAg. Non Reactive Non Reactive [facility] Specimen Anatomical Collection Method Collection Time Receive d Time (Source) Location / / Volume Laterality Blood 02/07/2023 6:52 AM 3 8:32 CDT AM CDT Thao Soria MD LAB BLOOD ORDERABLES Performing Organization Address City/[facility] Phon e Number [facility] Unless otherwise noted, [address] all lab tests performed by: Division of Pathology and Laboratory Medicine [address] [place] [address] Blood Culture (02/07/2023 6:52 AM CDT)Only the most recent of6 resultswithin the time period is included. athologist Signature Final Report No growth [facility] Specimen Anatomical Collection Method Collection Time Receive d Time (Source) Location / / Volume Laterality Blood 02/07/2023 6:52 AM 3 7:43 (Venipuncture-Ri CDT AM CDT ght) Comment: arm Tim Nguyen MD MICROBIOLOGY - GENERAL ORDER [place] Performing Organization Address City/[facility]/ZIP [facility] Phon e Number [facility] Unless otherwise noted, [address] all lab tests performed by: Division of Pathology and Laboratory Medicine [address] [place], [place] [address] Transferrin with TIBC (02/07/2023 6:52 AM CDT) athologist Signature Transferrin 205 200 - 360 [facility] mg/dL [facility] TIBC 287 250 - 450 [facility] mcg/dL [facility] Specimen Anatomical Collection Method Collection Time Receive d Time (Source) Location / / Volume Laterality Blood 02/07/2023 6:52 AM 3 7:07 CDT AM CDT Thao Soria MD LAB BLOOD ORDERABLES Performing Organization Address City/[facility]/ZIP [facility] Phon e Number [facility] CANCER Unless otherwise noted, [address] all lab tests performed by: Division of Pathology and Laboratory Medicine [address] [facility] Level (02/07/2023 6:52 AM CDT) athologist Signature Iron 51 37 - 145 [facility] Specimen Anatomical Collection Method Collection Time Receive d Time (Source) Location / / Volume Laterality Blood 02/07/2023 6:52 AM 3 7:07 CDT AM CDT Thao Soria MD LAB BLOOD ORDERABLES Performing Organization Address [facility] Phon e Number [facility] CANCER Unless otherwise noted, [address] all lab tests performed by: Division of Pathology and Laboratory Medicine [facility] Hemoglobin A1c (02/07/2023 6:52 AM CDT)Only the most recent of2 resultswithin the time period is included. athologist Signature A1C 10.2 (H) 4.3 - 5.6 % [facility] Comment: HbA1c values >=6.5% are diagnostic [...] Organization Address City/State/ZIP Code Phon e Number [facility] CANCER Unless otherwise noted, [address] all lab tests performed by: Division of Pathology and Laboratory Medicine [address] [facility] (ABNORMAL) Ferritin Level (02/07/2023 6:52 AM CDT) athologist Signature Ferritin Lvl 320 (H) 13 - 150 [facility] ng/mL CANCER CENTER Specimen Anatomical Collection Method Collection Time Receive d Time (Source) Location / / Volume Laterality Blood 02/07/2023 6:52 AM 3 7:07 CDT AM CDT Thao Soria MD LAB BLOOD ORDERABLES Performing Organization Address City/State/ZIP Code Phon e Number [facility] CANCER Unless otherwise noted, [address] all lab tests performed by: Division of Pathology and Laboratory Medicine [address] [place] (ABNORMAL) Lipid Panel (02/07/2023 6:52 AM CDT) athologist Signature Chol 137 <=199 mg/dL [facility] Comment: ATP III Classification of Total Choleste rol Primary Target of Therapy (in mg/dL): <200 Desirable 200-239 Borderline high >=240 High Trig 184 (H) <=149 mg/dL [facility] Comment: ATP III Classification of Serum Triglyce rides Primary Target of Therapy (in mg/dL): <150 Normal 150-199 Borderline high 200-499 High >=500 Very high Non-fasting triglycerides >200 mg/dL may be followed up with a fasting Lipid Panel. Calculated LDL-C may be falsely decreased when non-fasting triglycerides >200 mg/dL. HDL 27 (L) >=40 mg/dL [facility] CENTER LDL 73 <=100 mg/dL [facility] Comment: ATP III Classification of LDL Cholestero l Primary Target of Therapy (in mg/dL): <100 Optimal 100-129 Near optimal/above optimal 130-159 Borderline high 160-189 High >=190 Very high VLDL 37 mg/dL [facility] Specimen Anatomical Collection Method Collection Time Receive d Time (Source) Location / / Volume Laterality Blood 02/07/2023 6:52 AM 3 7:07 CDT AM CDT Thao Soria MD LAB BLOOD ORDERABLES Performing Organization Address City/State/ZIP Code Phon e Number [facility] Unless otherwise noted, [address] all lab tests performed by: Division of Pathology and Laboratory Medicine [facility] Michelle Hodges Clostridium Difficile DNA Path Review (02/07/2023 5:18 AM CDT) Component Value Ref Test Analysis Performed At [facility] gist Range Method Time Signature C diff DNA MO Reviewed and Electronically signed by Pathologist: ND MD PATRICIA CHAVEZ MD #[id number] [facility] Comment: C. difficile Toxin DNA [...] for repeat testing. PATRICIA CHAVEZ MD - [id number] Dictated by: PATRICIA CHAVEZ MD - [phone] [id number] Dictated Date/Time: 02.07.2023 16:35 PM CDT Transcribed Date/Time: 02.07.2023 16:35 PM CDT Electronically Signed By: PATRICIA OTTO MD - [id number] on 02.07.2023 16:35 PM Specimen Anatomical Collection Method Collection Time Receive d Time (Source) Location / / Volume Laterality Stool 02/07/2023 5:18 AM 3 8:07 CDT AM CDT Thao Soria MD MICROBIOLOGY - GENERAL ORDER GODWIN Performing Organization Address City/State/ZIP Code Phon e Number [facility] CANCER Unless otherwise noted, [address] all lab tests performed by: Division of Pathology and Laboratory Medicine [facility] Clostridium Difficile DNA Assay (02/07/2023 5:18 AM CDT) Patholo gist Method Time Signature C difficile DNA Negative Negative CARLA GRIFFIN [facility] C difficle Toxin Test Not Negative CARLA GRIFFIN EIA Performed [facility] C difficile C. difficile ND Interpretation DNA [place] detection CANCER was negative CENTER making C. difficile infection highly unlikely in this patient. EIA not performed. Specimen Anatomical Collection Method Collection Time Receive d Time (Source) Location / / Volume Laterality Stool 02/07/2023 5:18 AM 6:14 CDT AM CDT Son Amelia Soria MICROBIOLOGY - GENERAL ORDER GODWIN Performing Organization Address City/State/ZIP Code Phon e Number [place] CANCER Unless otherwise noted, [place] [address] CENTER all lab tests performed by: Division of Pathology and Laboratory [facility] Gastrointestinal Multiplex Panel (02/07/2023 5:16 AM CDT) Component Value Ref Range Test Analysis Performed Pathologis t Method Time At [facility] Campylobacter Not Detected Not ND Detected [facility] C difficile DNA (GI Refer to ND Multi Panel) separate C. [place] difficile DNA CANCER Assay for CENTER results Plesiomonas Not Detected Not ND shigelloides Detected [facility] Salmonella Not Detected Not ND Detected [facility] Vibrio Not Detected Not ND Detected [facility] Vibrio cholerae Not Detected Not ND Detected [facility] Yersinia Not Detected Not [facility] enterocolitica Detected [facility] Enteroaggregative E. Not Detected Not ND coli (EAEC) Detected [facility] Enteropathogenic E. Not Detected Not [facility] coli (EPEC) Detected [facility] Enterotoxigenic E. Not Detected Not ND coli (ETEC) Detected [facility] Shiga-like Not Detected Not [facility] toxin-producing E. Detected [place] col (STEC) [facility] E. coli O157 Not Not ND Applicable Detected [facility] Shigella/Enteroinvas Not Detected Not ND rosales E. coli (EIEC) Detected [facility] Cryptosporidium Not Detected Not ND Detected [facility] Cyclospora Not Detected Not ND cayetanensis Detected [facility] Entamoeba Not Detected Not [facility] histolytica Detected [facility] Giardia lamblia Not Detected Not [facility] Detected [facility] Adenovirus F 40/41 Not Detected Not [facility] Detected [facility] Astrovirus Not Detected Not [facility] Detected [facility] Norovirus GI/GII Not Detected Not UT MD Detected [facility] Rotavirus A Not Detected Not UT MD Detected [facility] Sapovirus (I, II, IV Not Detected Not UT MD and V) Detected [facility] Specimen Anatomical Collection Method Collection Time Receive d Time (Source) Location / / Volume Laterality Stool 02/07/2023 5:16 AM 3 6:13 CDT AM CDT Thao Soria MD MICROBIOLOGY - GENERAL ORDER GODWIN Performing Organization Address City/State/[facility] Code Phon e Number [place] [facility] Unless otherwise noted, [place] [address] [place] all lab tests performed by: Division of Pathology and Laboratory Medicine [facility]5 [facility] Gastrointestinal Multiplex Panel Path Review (02/07/2023 5:16 AM CDT) [facility] gist Method Time Signature GIMP MO Reviewed and Electronically signed by Pathologist: CARLA CHAVEZ MD #[id number] [facility] Comment: Performed by real-time PCR [...] correlation is recommended. PATRICIA CHAVEZ MD - [id number] Dictated by: PATRICIA CHAVEZ MD - [id number] Dictated Date/Time: 02.07.2023 16:40 PM CDT Transcribed Date/Time: 02.07.2023 16:40 PM CDT Electronically Signed By: PATRICIA OTTO MD - [id number] on 02.07.2023 16:40 PM Specimen Anatomical Collection Method Collection Time Receive d Time (Source) Location / / Volume Laterality Stool 02/07/2023 5:16 AM 3 6:13 CDT AM CDT Thao Soria MD LAB BLOOD ORDERABLES Performing Organization Address City/State/ZIP Code Phon e Number [facility] CANCER Unless otherwise noted, [address] all lab tests performed by: Division of Pathology and Laboratory Medicine [address] [facility] EKG, 12-Lead (Portable) (02/07/2023)Only the most recent [...] athologist Signature NT ProBNP 83 <=125 pg/mL [facility] Specimen Anatomical Collection Method Collection Time Receive d Time (Source) Location / / Volume Laterality Blood 02/06/2023 3:05 AM 3 3:20 CDT AM CDT Cathie Meneses APRNAGACNP LAB BLOOD ORDERABLES Performing Organization Address City/[facility] Phon e Number [facility] CANCER Unless otherwise noted, [address] all lab tests performed by: Division of Pathology and Laboratory Medicine [facility] (02/06/2023 3:05 AM CDT)Only the most recent of3 resultswithin the time period is included. athologist Signature CRP 65.62 mg/L [facility] Comment: Reference ranges for HS CRP [...] 3:05 AM 3 3:20 CDT AM CDT JUAN Mcmahon APRNP LAB BLOOD ORDERABLES Performing Organization Address City/[facility]/ZIP Code Phon e Number [facility] CANCER Unless otherwise noted, [address] all lab tests performed by: Division of Pathology and Laboratory Medicine [address] [place] [address] Troponin T (In-House) (02/06/2023 1:09 AM CDT)Only the most recent of2 results within the time period is included. P athologist Signature Troponin T 10 <=19 ng/L [facility] Comment: < 19 ng/L Suggest retest [...] MD LAB BLOOD ORDERABLES Performing Organization Address [facility]/ZIP Code Phon e Number [facility] CANCER Unless otherwise noted, [address] all lab tests performed by: Division of Pathology and Laboratory Medicine [address] [place] [address] (ABNORMAL) Urine Culture (02/06/2023 12:40 AM CDT)Only the most recent of3 resultswithin the time period is included. Patholo gist Method Time Signature Final Report 10 - 50,000 cfu/ml Normal site isabel present. CARLA GRIFFIN Generally of low significance. [place] Correlate with clinical data and culture history. CANCER CENTER (A) Specimen Anatomical Collection Method Collection Time Receive d Time (Source) Location / / Volume Laterality Urine 02/06/2023 12:40 02/06/2023 2:54 AM CDT AM CDT Irina Houston APRN MICROBIOLOGY - GENERAL ORDER GODWIN Performing Organization Address City/[facility] Phon e Number [facility] CANCER Unless otherwise noted, [address] all lab tests performed by: Division of Pathology and Laboratory Medicine [address] [place], [place] [address]d aPTT (02/05/2023 8:26 PM CDT)Only the most recent of5 resultswithin the time period is included. P athologist Signature aPTT 28.5 22.8 - 34.2 [facility]() [facility] Specimen Anatomical Collection Method Collection Time Receive d Time (Source) Location / / Volume Laterality Blood 02/05/2023 8:26 PM 3 8:29 CDT PM CDT Deneen Guevara MD LAB BLOOD ORDERABLES Performing Organization Address [facility] Phon e Number [facility] CANCER Unless otherwise noted, [address] all lab tests performed by: Division of Pathology and Laboratory Medicine [address] [place] [address] VB Lactate (02/05/2023 8:26 PM CDT)Only the most recent of4 resultswithin the time period is included. P athologist Signature V Lactate 1.2 0.5 - 1.6 [facility] mmol/L [facility] Specimen Anatomical Collection Method Collection Time Receive d Time (Source) Location / / Volume Laterality Blood 02/05/2023 8:26 PM 3 8:29 CDT PM CDT Deneen Guevara MD LAB BLOOD ORDERABLES Performing Organization Address City/[facility] Phon e Number [facility] CANCER Unless otherwise noted, [address] all lab tests performed by: Division of Pathology and Laboratory Medicine [address] [place], [place] [address]d (ABNORMAL) Prothrombin Time with INR (02/05/2023 8:26 PM CDT)Only the most recent of5 resultswithin the time period is included. P athologist Signature PT 14.7 (H) 11.9 - 14.1 [facility] INR 1.16 (H) 0.89 - 1.10 [facility] Specimen Anatomical Collection Method Collection Time Receive d Time (Source) Location / / Volume Laterality Blood 02/05/2023 8:26 PM 8:29 CDT PM CDT Deneen Guevara MD LAB BLOOD ORDERABLES Performing Organization Address City/[facility]/ZIP Code Phon e Number [facility] CANCER Unless otherwise noted, [address] all lab tests performed by: Division of Pathology and Laboratory Medicine [address] [facility] (ABNORMAL) D Dimer (02/05/2023 8:26 PM CDT) P athologist Signature D-Dimer 3.04 (H) 0.10 - 0.50 [facility] mcg/ml [facility]U [facility] CENTER Comment: The cut off value for exclusion of venou s thromboembolism is <0.51 mcg/mL FEUs (fibrinogen equival ent units). Specimen Anatomical Collection Method Collection Time Receive d Time (Source) Location / / Volume Laterality Blood 02/05/2023 8:26 PM 8:29 CDT PM CDT Deneen Guevara MD LAB BLOOD ORDERABLES Performing Organization Address City/[facility]/ZIP Code Phon e Number [facility] CANCER Unless otherwise noted, [address] all lab tests performed by: Division of Pathology and Laboratory Medicine [facility]5 [facility] X-ray Abdomen AP (02/05/2023 6:59 PM CDT) [...] radiographic evidence of obstruction or ileus. Amanda LANG DIAGNOSTIC IMAGING ORDER GODWIN X-ray Chest 1 [...] of4 resultswithin the time period is included. [facility] Method Time Signature COVID19 Not Detected Not Detected CARLA GRIFFIN (SARS-CoV-2) [facility] COVID19 SARS Inpatient [place] Indication Admission [facility] Covid 19 See Note [place] Comment [facility] Comment: The ruby SARS-CoV-2 nucleic acid [...] fact sheet for patients provided by the shrink pit operator ([employer]) can be reviewed at: https://www.fda.gov/media/414241/luislosourav lund. A fact sheet for Health Care providers is provided by the shrink pit operator ([employer]) and can be reviewed at: https://www.fda.gov/media/125227/download Results must be interpreted within the c [...] and high-complexity tests. The Microbiology Laboratory at [facility], CLIA Accreditation #[id number] a ms CAP Accreditation #[id number], verified the performance characteristics of this assay. Internal controls are used to monitor all stages of the test process. Specimen (Source) Anatomical Collection Method Collection Time Re ceived Time Location / / Volume Laterality Nasopharyngeal Swab 02/05/2023 5:09 02/05 PM CDT 5:17 PM CDT Amanda Proctor MD MICROBIOLOGY - GENERAL ORDER GODWIN Performing Organization Address City/State/ZIP Code Phon e Number [facility] CANCER Unless otherwise noted, [address] all lab tests performed by: Division of Pathology and Laboratory Medicine [address] [facility] Lipase (02/05/2023 3:30 PM CDT)Only the most recent of4 resultswithin the time period is included. P athologist Signature Lipase Lvl 18 13 - 60 U/L [facility] Specimen Anatomical Collection Method Collection Time Receive d Time (Source) Location / / Volume Laterality Blood 02/05/2023 3:30 PM 3 3:39 CDT PM CDT Amanda Proctor MD LAB BLOOD ORDERABLES Performing Organization Address City/State/ZIP [facility] Phon e Number [facility] Unless otherwise noted, [address] all lab tests performed by: Division of Pathology and Laboratory Medicine [address] [place] [address] [place] CKMB (02/05/2023 3:30 PM CDT) P athologist Signature CK MB <2.0 <=5.3 ng/mL [facility] Specimen Anatomical Collection Method Collection Time Receive d Time (Source) Location / / Volume Laterality Blood 02/05/2023 3:30 PM 3 3:39 CDT PM CDT Amanda Proctor MD LAB BLOOD ORDERABLES Performing Organization Address City/State/ZIP Code Phon e Number [facility] Unless otherwise noted, [address] all lab tests performed by: Division of Pathology and Laboratory Medicine [facility] Amylase Level (02/05/2023 3:30 PM CDT)Only the most recent of2 resultswithin the time period is included. P athologist Signature Amylase Lvl 43 28 - 100 [facility] U/L [facility] Specimen Anatomical Collection Method Collection Time Receive d Time (Source) Location / / Volume Laterality Blood 02/05/2023 3:30 PM 3 3:39 CDT PM CDT Amanda Proctor MD LAB BLOOD ORDERABLES Performing Organization Address City/State/ZIP Code Phon e Number [facility] Unless otherwise noted, [address] all lab tests performed by: Division of Pathology and Laboratory Medicine [address] [employer] [place] (ABNORMAL) Urinalysis with Microscopic (02/05/2023 12:39 AM CDT) [facility] Method Time Signature UA Color [place] (A) Straw-Yel [facility] UA Appear Cloudy (A) Clear [facility] UA Glucose 500 (A) NEG mg/dL [facility] UA Bili NEG NEG [facility] UA Ketones 40 (A) NEG mg/dL [facility] UA Spec Grav 1.021 1.003 - [facility] [address] [facility] UA Blood NEG NEG [facility] UA pH 6.0 5.0 - 9.0 [facility] UA Protein 20 (A) NEG mg/dL [facility] UA Urobilinogen NEG NEG [facility] UA Nitrite NEG NEG [facility] UA Leuk Est NEG NEG [facility] UA WBC NOT SEEN 0 - 2 [facility] Comment: Some reporting parameters within the Uri nalysis test have changed due to the implementation of new instrumentation in the [facility], allowing greater sensitivity of measurement. Urinalysis results rep orted by the [facility] using existing instrumentation, as well as Urinalysis t esting performed manually or by backup methodology at the [facility] will remain relatively unchanged. New reporting parameters and units will not be reported for all palmeres. UA RBC 13 (H) 0 - 2 /HPF [facility] CENTER UA Mucous NOT SEEN Not Seen-Trace /HPF [facility] UA Bacteria NOT SEEN NOT SEEN /HPF [facility] UA Squam Epi OCC None-Occasional /HPF [facility] Specimen Anatomical Collection Method Collection Time Receive d Time (Source) Location / / Volume Laterality Urine 02/05/2023 12:39 02/06/2023 AM CDT 12:42 AM CDT Irina Houston APRN URINE ORDERABLES Performing Organization Address City/State/ZIP Code Phon e Number [facility] CANCER Unless otherwise noted, [place] [address] [place] all lab tests performed by: Division of Pathology and Laboratory Medicine [address] [employer] Tip Verification Central Vascular Access Device (01/29/2023 3:08 PM CDT) Narrative Justo Banuelos RN - 01/29/2023 3:08 PM CDT Justo Banuelos RN 01/29/2023 3:08 PM Central Vascular Access Device Tip Verif ication Performed by: Justo Banuelos RN Authorized by: Rashaun Wiley MD [employer] Date device placed: 01/29/2023 Placed by: Justo Banuelos RN Device placement location: [facility] Catheter Type: PICC Catheter lumen: [...] By: Rashaun Wiley MD Procedure Location: Inpatient Commercial Intelligence Manager present: yes (Saeed GRIFFIN) 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 Informed consent obtained prior to procedure, the risks, benefits, and alternative discussed with patient/designated telephone services sales representative. Pre-p rocedure the patient was [...] placement. placement and tip verified using tip hand spinner and place ment and tip verified by [...] time period is included. P athologist Signature Hgb 13.3 12.0 - 16.0 ND MD BLUM gm/dL [facility] CENTER Specimen Anatomical Collection Method Collection Time Receive d Time (Source) Location / / Volume Laterality Blood 01/28/2023 8:24 AM 3 8:30 CDT AM CDT Mana Powers APRN LAB BLOOD ORDERABLES Performing Organization Address City/[facility]/ZIP Code Phon e Number [facility] CANCER Unless otherwise noted, [address] all lab tests performed by: Division of Pathology and Laboratory Medicine [address] [facility] Hematocrit (01/28/2023 8:24 AM CDT)Only the most recent of3 resultswithin the time period is included. athologist Signature Hct 40.6 37.0 - 47.0 [facility] Specimen Anatomical Collection Method Collection Time Receive d Time (Source) Location / / Volume Laterality Blood 01/28/2023 8:24 AM 3 8:30 CDT AM CDT Mana Powers APRN LAB BLOOD ORDERABLES Performing Organization Address City/[facility] Phon e Number [facility] CANCER Unless otherwise noted, [address] all lab tests performed by: Division of Pathology and Laboratory Medicine [address] [facility] (ABNORMAL) Urinalysis Microscopic Exam (01/26/2023 10:45 PM CDT) athologist Signature UA WBC 6 (H) 0 - 2 /HPF [facility] Comment: Some reporting parameters within the Uri nalysis test have changed due to the implementation of new instrumentation in the [facility] [place], allowing greater sensitivity of measurement. Urinalysis results rep orted by the [facility] using existing instrumentation, as well as Urinalysis t esting performed manually or by backup methodology at the [facility] [place] will remain relatively unchanged. New reporting parameters and units will not be reported for all campuses. UA RBC <1 0 - 2 /HPF [facility] KULWANT [facility] CENTER UA Mucous NOT SEEN Not Seen-Trace /HPF ND MD [facility] CENTER UA Bacteria NOT SEEN NOT SEEN /HPF [facility] UA Squam Epi OCC None-Occasional /HPF [facility] Specimen Anatomical Collection Method Collection Time Receive d Time (Source) Location / / Volume Laterality Urine 01/26/2023 10:45 01/26/2023 PM CDT 10:49 PM CDT Amanda Proctor MD LAB BLOOD ORDERABLES Performing Organization Address City/[facility]/ZIP Code Phon e Number [facility] Unless otherwise noted, [address] all lab tests performed by: Division of Pathology and Laboratory Medicine [address] [place] [address] (ABNORMAL) Urinalysis w/Microscopic if Indicated (01/26/2023 10:45 PM CDT)Only the most recent of2 resultswithin the time period is included. Analysis Performed At Patho logist Time Signature UA Color Straw [facility] UA Appear Clear Clear [facility] UA Glucose 500 (A) NEG mg/dL [facility] UA Bili NEG NEG [facility] UA Ketones NEG NEG mg/dL [facility] UA Spec Grav 1.020 1.003 - [facility] [address] [facility] UA Blood NEG NEG [facility] UA pH 5.5 5.0 - 9.0 [facility] UA Protein 30 (A) NEG mg/dL [facility] UA Urobilinogen NEG NEG [facility] UA Nitrite NEG NEG [facility] UA Leuk Est NEG NEG [facility] Specimen Anatomical Collection Method Collection Time Receive d Time (Source) Location / / Volume Laterality Urine 01/26/2023 10:45 01/26/2023 PM CDT 10:49 PM CDT Amanda Proctor MD URINE ORDERABLES Performing Organization Address City/[facility]/ZIP Code Phon e Number [facility] Unless otherwise noted, [address] all lab tests performed by: Division of Pathology and Laboratory Medicine [address] [place] [address] (ABNORMAL) LDH (01/26/2023 2:44 PM CDT)Only the most recent of3 resultswithin the time period is included. P athologist Signature LDH 289 (H) 135 - 214 [facility] U/L [facility]ER CENTER Comment: Results greater than [...] Organization Address City/State/ZIP Code Phon e Number [facility] CANCER Unless otherwise noted, [place] [address] CENTER all lab tests performed by: Division of Pathology and Laboratory Medicine [address] [facility] (ABNORMAL) Controlled Substance Monitoring Panel, Urine (01/20/2023 12:37 PM CDT) Analysis Performed At Patho logist Time Signature Urine 55.1 mg/dL [facility] Creatinine [facility] Urine Specific 1.014 [facility] [place] [facility] Urine Ph 6.2 [facility] Urine Oxidants Negative Cutoff: ND 200 mg/L [facility] Urine Comment Normal [facility] U Negative Cutoff: ND Barbiturates-Ma 200 ng/mL [facility] U Cocaine Negative Cutoff: ND Lvl-Luu 150 ng/mL [facility] Comment: This cocaine immunoassay targets benzoyl ecgonine the primary metabolite of cocaine. U THC-Luu See Footnote (A) Cutoff: 50 ng/mL [facility] Comment: RESULT: Presumptive Positive This immunoassay [...] Detected Cutoff: 25 ng/mL ND MD [facility] Comment: Tylenol 3 Xzbbcqf-7-lxnq-glucuronide Not Detected Cutoff: 100 ng/mL [facility] Comment: Metabolite of codeine Morphine Not Detected Cutoff: 25 ng/mL ND MD [facility] Comment: Martha Mary, [place] Contin; Also a minor metabolite (10%) of codeine and can be seen in low concentra tions (<2,000 ng/mL) with poppy seed ingestion. Qztzvinz-1-btdg-glucuronide Not Detected Cutoff: 100 ng/mL [facility] Comment: Metabolite of morphine 6-monoacetylmorphine Not Detected Cutoff: 25 ng/mL [facility] Comment: Metabolite of heroin Hydrocodone Not Detected Cutoff: 25 ng/mL [facility] Comment: Lortab, [place], Vicodin; Also a very luci r metabolite of codeine and impurity (<1%) of oxycodone. Norhydrocodone Not Detected Cutoff: 25 ng/mL [facility] Comment: Metabolite of hydrocodone Dihydrocodeine Not Detected Cutoff: 25 ng/mL [facility] Comment: Metabolite of hydrocodone Hydromorphone Not Detected Cutoff: 25 ng/mL [facility] Comment: Dilaudid, Exalgo; Also a metabolite of h ydrocodone and a minor (<5%) metabolite of morphine. Pdciaphuxchfs-7-xlsu-glucuronide Not Detected Cutoff: 100 [facility] ng/mL [facility] Comment: Metabolite of hydromorphone Oxycodone Present (A) Cutoff: 25 ng/mL [facility] Comment: Endocet, Percocet, Oxycontin Noroxycodone Present (A) Cutoff: 25 ng/mL [facility] Comment: Metabolite of oxycodone Oxymorphone Not Detected Cutoff: 25 ng/mL [facility] Comment: Numorphan, Opana; Also a metabo lite of oxycodone. Wcnknmgaqxs-0-ppyc-glucuronide Not Detected Cutoff: 100 ng/mL [facility] Comment: Metabolite of oxymorphone and/o r naloxone (nornaloxone) Noroxymorphone Present (A) Cutoff: 25 ng/mL [facility] Comment: Metabolite of oxymorphone and/o r naloxone (nornaloxone) Fentanyl Not Detected Cutoff: 2 ng/mL [facility] Comment: Actiq, Duragesic, Fentora Norfentanyl Not Detected Cutoff: 2 ng/mL [facility] Comment: Metabolite of fentanyl Meperidine Not Detected Cutoff: 25 ng/mL ND [facility] Comment: Demerol Normeperidine Not Detected Cutoff: 25 ng/mL [facility] Comment: Metabolite of meperidine Naloxone Not Detected Cutoff: 25 ng/mL ND MD [facility] Comment: Narcan Gmhgvyzh-5-zcxz-glucuronide Not Detected Cutoff: 100 ng/mL [facility] Comment: Metabolite of naloxone U Methadone Not Detected Cutoff: 25 ng/mL ND MD Z[facility]O [facility] Comment: Dolophine EDDP Not Detected Cutoff: 25 ng/mL ND MD [facility] Comment: Metabolite of methadone Propoxyphene Not Detected Cutoff: 25 ng/mL ND MD Benjamin [facility] Comment: Darvon, Darvocet Norpropoxyphene Not Detected Cutoff: 25 ng/mL [facility] Comment: Metabolite of propoxyphene Tramadol Not Detected Cutoff: 25 ng/mL ND MD [facility] Comment: Tradol, Ultram, Ultracet O-desmethyltramadol Not Detected Cutoff: 25 ng/mL [facility] Comment: Metabolite of tramadol Tapentadol Not Detected Cutoff: 25 ng/mL ND MD [facility] Comment: Nucynta Tkvoefoqbt-tnrx-ttfdaviuavo Not Detected Cutoff: 100 ng/mL [facility] Comment: Metabolite of tapentadol Buprenorphine Not Detected Cutoff: 5 ng/mL ND MD Benjamin [facility] Comment: Buprenex, Suboxone Norbuprenorphine Not Detected Cutoff: 5 ng/mL [facility] Comment: Metabolite of buprenorphine Norbuprenorphine Glucuronide Not Detected Cutoff: 20 ng/mL [facility] Comment: Metabolite of buprenorphine Opioid Interpretation See Footnote [facility] Comment: Test detected the presence of oxycodone and one of its metabolites (noroxycodone) along with no roxymorphone (metabolite of oxymorphone). Suspect use of oxymorphone and/or oxycodone within the past three d ays. Trace amounts of oxycodone can be found as an impurity in oxymorphone. ADDITIONAL INFORMATIO N This test was developed and its performa nce characteristics determined by [facility] in a manner co nsistent with CLIA requirements. This test has not been sisi ared or approved by the U.S. Food and Drug Administration. Alprazolam Urine Present (A) Cutoff: 10 ng/mL [facility] Comment: Xanax Alpha-Hydroxyalprazolam Urine Present (A) Cutoff: 10 ng/mL [facility] Comment: Metabolite of Alprazolam Alpha-Hydroxyalprazolam Present (A) Cutoff: 50 ng/mL [facility] Glucuronide Urine [facility] Comment: Metabolite of Alprazolam Chlordiazepoxide Urine Not Detected Cutoff: 10 ng/mL [facility] Comment: Librium Colbazam Urine Not Detected Cutoff: 10 ng/mL [facility] Comment: Frisium, Onfi N-Desmethylclobazam Urine Not Detected Cutoff: 200 ng/mL [facility] Comment: Metabolite of Clobazam Clonazepam Urine Not Detected Cutoff: 10 ng/mL [facility] Comment: Klonopin, Rivotril 7-Aminoclonazepam Urine Not Detected Cutoff: 10 ng/mL [facility] Comment: Metabolite of Clonazepam Diazepam Urine Not Detected Cutoff: 10 ng/mL [facility] Comment: Valium Nordiazepam Urine Not Detected Cutoff: 10 ng/mL [facility] Comment: Metabolite of Chlordiazepoxide, Diazepam, or Prazepam. Flunitrazepam Urine Not Detected Cutoff: 10 ng/mL [facility] Comment: Rohypnol 7-Aminoflunitrazepam Urine Not Detected Cutoff: 10 ng/mL [facility] Comment: Metabolite of Flunitrazepam FlUrinerazepam Urine Not Detected Cutoff: 10 ng/mL [facility] Comment: Dalmane 2-Hydroxy Ethyl Flurazepam Not Detected Cutoff: 10 ng/mL [facility] Comment: Metabolite of Flurazepam Lorazepam Urine Not Detected Cutoff: 10 ng/mL [facility] Comment: Ativan Lorazepam Glucuronide Not Detected Cutoff: 50 ng/mL [facility] Comment: Metabolite of Lorazepam Midazolam Urine Not Detected Cutoff: 10 ng/mL [facility] Comment: Versed Alpha-Hydroxy Midazolam Not Detected Cutoff: 10 ng/mL [facility] CENTER Comment: Metabolite of Midazolam Oxazepam Urine Not Detected Cutoff: 10 ng/mL [facility] Comment: Serax; Also a metabolite of Chlordiazepo xide, Diazepam, or Temazepam. Oxazepam Glucuronide Urine Not Detected Cutoff: 50 ng/mL [facility] Comment: Metabolite of Oxazepam Prazepam Urine Not Detected Cutoff: 10 ng/mL [facility] Comment: Centrax Temazepam Urine Not Detected Cutoff: 10 ng/mL [facility] Comment: Restoril; Also a metabolite of Diazepam. Temazepam Glucuronide Not Detected Cutoff: 50 ng/mL [facility] Comment: Metabolite of Temazepam Triazolam Urine Not Detected Cutoff: 10 ng/mL [facility] Comment: Halcion Alpha-Hydroxy Triazolam Not Detected Cutoff: 10 ng/mL [facility] Comment: Metabolite of Triazolam Zolpidem Urine Not Detected Cutoff: 10 ng/mL [facility] Comment: Ambien Zolpidem Lgndc-8-Kejvrjzmww Present (A) Cutoff: 10 ng/mL [facility] Acid [facility] Comment: Metabolite of Zolpidem Benzodiazepine Interp Urine See Footnote [facility] Comment: Test detected the presence of alprazolam and two of its metabolites (alpha-hydroxyalprazolam and alpha-hydroxyalprazolam glucuronide). Agarwal spect use of alprazolam within the past three days. Test detected the presence of zolpidem p pakyn-3-toyyeamfhi acid (metabolite of zolpidem) only. Susp ect use of zolpidem within the past four days. ADDITIONAL INFORMATIO N This test was developed and its performa nce characteristics determined by [facility] in a manner co nsistent with CLIA requirements. This test has not been sisi ared or approved by the U.S. Food and Drug Administration. Methamphetamine Not Detected Cutoff: 100 ng/mL [facility] Comment: Desoxyn Amphetamine Not Detected Cutoff: 100 ng/mL ND MD Benjamin [facility] Comment: Dyanavel XR, Adzenys ER, Adderall, Vyvan se; Also a metabolite of methamphetamine 3,4-Methylenedioxymethamphetamine Not Detected Cutoff: 100 [facility] (MDMA) ng/mL [facility] 3,1-Alwfsecuqhknpk-T-Ethylamphetamine Not Detected Cutoff: 100 [facility] (MDEA) ng/mL [facility] 3,4-Methylenedioxyamphetamine (MDA) Not Detected Cutoff: 100 [facility] ng/mL [facility] Comment: Also a metabolite of MDMA and/o r MDEA Ephedrine Not Detected Cutoff: 100 ng/mL [facility] Pseudoephedrine Present (A) Cutoff: 100 ng/mL [facility] Comment: Sudafed Phentermine Not Detected Cutoff: 100 ng/mL [facility] Sourav [facility] Comment: Adipex-P, Lomaira, Qsymia Phencyclidine (PCP) Not Detected Cutoff: 20 ng/mL [facility] Methylphenidate Not Detected Cutoff: 20 ng/mL [facility] Comment: Ritalin, Concerta Ritalinic acid Not Detected Cutoff: 100 ng/mL [facility] Comment: Metabolite of methylphenidate Stimulant Interpretation See Footnote [facility] Comment: Test detected the presence of pseudoephe drine. Suspect use of pseudoephedrine within the past three days. ADDITIONAL INFORMATIO N This test was developed and its performa nce characteristics determined by [facility] in a manner co nsistent with CLIA requirements. This test has not been sisi ared or approved by the U.S. Food and Drug Administration. Test Performed by: [facility] - [address] [address] Transplant Surgeon: Yonathan Guzman M.D. Ph. D.; CLIA# [id number] Patients Current Medications NOT ANSWERED [facility] Comment: ADDITIONAL INFORMATIO N Accuracy and completeness of declared me dications on reports solely dependent on information submitted by client. Specimen Anatomical Collection Method Collection Time Receive d Time (Source) Location / / Volume Laterality Urine 01/20/2023 12:37 01/20/2023 8:31 PM CDT PM CDT Rogerio Kramer MD URINE ORDERABLES Performing Organization Address City/State/ZIP Code Phon e Number [facility] Unless otherwise noted, [address] all lab tests performed by: Division of Pathology and Laboratory Medicine [address] (ABNORMAL) POC Urine Drug Screen (01/20/2023 12:37 PM CDT) athologist Signature POC U Amp Negative Negative [facility] Comment: Drug Abuse Cutoff Concentration: Cutoff: 1000 ng/mL POC U Barbit Negative Negative [facility] Comment: Drug Abuse Cutoff Concentration: 300 ng/mL POC U Benzo Positive (A) Negative [facility] Comment: Drug Abuse Cutoff Concentration: Cutoff: 300 ng/ mL POC U Cocaine Negative Negative [facility] Comment: Drug Abuse Cutoff Concentration: Cutoff: 300 ng/mL POC U THC Positive (A) Negative [facility] Comment: Drug Abuse Cutoff Concentration: Cutoff: 50 ng/mL POC U Methd Negative Negative [facility] Comment: Drug Abuse Cutoff Concentration: Cutoff: 300 ng/mL POC U Mampht Negative Negative [facility] Comment: Drug Abuse Cutoff Concentration: Cutoff: 1000 ng/mL POC U Opiate Negative Negative [facility] Comment: Drug Abuse Cutoff Concentration: Cutoff: 2000 ng/mL POC U Oxycod Positive (A) Negative [facility] Comment: Drug Abuse Cutoff Concentration: Cutoff: 100 ng/mL Due to the assay cross reactivity betwee n Oxycodone and Opiates, and lower sensitivity compared to GC-MS method, the test results may be falsely positive or falsely negative. Confirmation with concurrent GC-MS results is recommended. POC U PCP Negative Negative [facility] Comment: Drug Abuse Cutoff Concentration: Cutoff: 25 ng/mL POC U TCA Negative Negative [facility] Comment: Drug Abuse Cutoff Concentration: Cutoff: 1000 ng/mL POC U PPX Negative Negative [facility] Comment: [...] 1:10 Catch PM CDT PM CDT Narrative [facility] - 1:30 PM CDT The POC Urine Qualitative Drug Screen Pa augusto report is intended for use in clinical monitoring or management of patients. Un confirmed screening results must not be used for non-medical purposes such as legal o r employment-related testing. Rogerio Kramer MD POINT OF CARE TEST ORDERA BLES Performing Organization Address City/State/ZIP Code Phon e Number [facility] CANCER Unless otherwise noted, [place] [address] [place] all lab tests performed by: Division of Pathology and Laboratory Medicine Jasmyne5 Michelle Hodges Tetrahydocannabinol (THC), Quantitative, Urine (01/20/2023 12:37 PM CDT) athologist Signature U THC n/a CARLA GRIFFIN GC/MS-[facility] U THC see note CARLA [facility] Comment: Carboxy-THC Confirmation, U: Carboxy-THC Interpretation: Positive ADDITIONAL INFORMATION: This report is intended for use in clini mari monitoring and management of patients. It is not intend ed for use in employment-related testing. Delta-8 Carboxy-Tetrahydrocannabinol by LC-MS/MS: 672 ng/mL Reference Value: Cutoff: 5 Delta-9 Carboxy-Tetrahydrocannabinol by LC-MS/MS: 42 ng/mL Reference Value: Cutoff: 5 PERFORMING LAB: [facility] [address] [place] [address] Yonathan Guzman M.D. Ph.D. [id number] U [facility] n/a [facility] Specimen Anatomical Collection Method Collection Time Receive d Time (Source) Location / / Volume Laterality Urine, Clean 01/20/2023 12:37 01/27/2023 Catch PM CDT 11:34 AM CDT Rogerio Kramer MD URINE ORDERABLES Performing Organization Address City/State/ZIP Code Phon e Number [facility] Unless otherwise noted, [place] [address] [place] all lab tests performed by: Division of Pathology and Laboratory Medicine [facility]5 [facility] X-ray Knee 1 Or 2 Views Right [...] OU - Both Eyes (12/29/2022 10:51 AM [facility]) Specimen (Source) Anatomical Location Collection Method / Collectio n Time Received Time / Laterality Volume Narrative Dillon-Suzanne Heredia MD - 12/30/2022 11:50 AM [facility] Right Eye Threshold was 30-2. The AVF [...] OU - Both Eyes (12/29/2022 10:43 AM [facility]) Specimen (Source) Anatomical Location Collection Method / Collectio n Time Received Time / Laterality Volume Narrative Suzanne Mcgrath MD - 12/30/2022 11:44 AM [facility] Normal average thickness of peripapillary retinal nerve fiber layer . With borderline thinning temporally righ t eye Suzanne Mcgrath MD OPHTHALMOLOGY IMG ORDERABLES OCT, Retina - OU - Both Eyes (12/29/2022 10:43 AM [facility]) Specimen (Source) Anatomical Location Collection Method / Collectio n Time Received Time / Laterality Volume Narrative Suzanne Mcgrath MD - 12/30/2022 11:44 AM [facility] This result has an attachment that is no t available. Normal macular volume. No sign of serou s retinopathy Suzanne Mcgrath MD OPHTHALMOLOGY IMG ORDERABLES COVID-19 (SARS-CoV-2) PCR-Asymptomatic [facility] (12/23/2022 12:01 PM [facility]) [facility] Method Time Signature COVID19 (SARS Not Detected Not Detected ND CoV-2) [facility] [place] Comment: This test is a qualitative reverse-trans criptase polymerase chain reaction (RT- PCR) developed for the [employer] 6800 system and intended for qualitative detection of SARS CoV-2 RNA in nasopharyngeal a nd oropharyngeal swab specimens collecte d from any individuals, including those suspected o f COVID-19 by their healthcare provider, and those without symptoms or other reasons to suspect COVID-19. A fact sheet for patients provided by the shrink pit operator ( [employer]) can be rev iewed at: https://www.fda.gov/media/118351/treasure lund. A fact sheet for Health Care providers is provided by the shrink pit operator ([employer]) and can be reviewed at: https://www.fda.gov/media/281831/download Results must be interpreted within the c [...] were verified by the Microbiology Laboratory at [facility], CLIA Accreditation #: [id number] and CAP Accreditation #: [id number]. COVID19 SARS Source PRODUCT SUPPORT TECHNICIAN Swab ND MD [facility] COVID19 SARS Indication Pre-Radiation Therapy [facility] Specimen (Source) Anatomical Collection Method Collection Time Re ceived Time Location / / Volume Laterality Nasopharyngeal Swab 12/23/2022 12:01 12/03 PM [facility] 3:41 PM [facility] Winter Luu MD MICROBIOLOGY - GENERAL ORDER [place] Performing Organization Address City/State/ZIP Code Phon e Number [facility] Unless otherwise noted, [address] all lab tests performed by: Division of Pathology and Laboratory Medicine [address] OCT, Optic Nerve - OU - Both Eyes (12/15/2022 10:37 AM [facility]) Specimen (Source) Anatomical Location Collection Method / Collectio n Time Received Time / Laterality Volume Narrative Sheridan Alvarez MD - 12/17/2022 12:25 PM [facility] Right Eye Average nerve fiber layer thickness cons istent with normal Left Eye Average nerve fiber layer thickness cons istent with normal Sheridan Alvarez MD OPHTHALMOLOGY IMG ORDERABLES OCT, Retina - OU - Both Eyes (12/15/2022 10:37 AM [facility]) Specimen (Source) Anatomical Location Collection Method / Collectio n Time Received Time / Laterality Volume Narrative Sheridan Alvarez MD - 12/17/2022 12:25 PM [facility] Right Eye This is the baseline exam. Findings incl ude normal observations. Left Eye This is the baseline exam. Findings incl ude normal observations. Sheridan Alvarez MD OPHTHALMOLOGY IMG ORDERABLES Fundus Photos - OU - Both Eyes (12/15/2022 10:37 AM [facility]) Specimen (Source) Anatomical Location Collection Method / Collectio n Time Received Time / Laterality Volume Sheridan Angulo MD - 12/17/2022 12:25 PM [facility] Right Eye Basline Exam. Sheridan Alvarez MD OPHTHALMOLOGY IMG ORDERABLES 3D Dental Imaging (iCAT) (12/15/2022 8:42 AM [facility]) Specimen (Source) Anatomical Location Collection Method / Collectio n Time Received Time / Laterality Volume Narrative Systemgenerated, Documentation - 023 8:42 AM [facility] This procedure requires no interpretatio n from the radiologist. Benito Saini DDS IMG NON DI ORDERABLES FL Modified Barium Swallow w Speech (12/14/2022 2:37 PM [facility]) Anatomical Region Laterality Modality Neck Radio Fluoroscopy Specimen (Source) Anatomical Collection Method Collection Time Re ceived Time Location / / Volume Laterality 12/14/2022 2:58 PM [facility] Impressions 12/14/2022 3:08 PM [facility] 1. Flash penetration without aspiration seen with thin liquid barium. 2. Please refer to the separately dictat ed speech pathology report for further details and recommendations. 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 There was no pharyngeal residue. Pharyngeal [...] ORDERABLES (ABNORMAL) ABG Venous (12/11/2022 6:21 PM [facility]) P athologist Signature pH Raghavendra 7.40 7.32 - 7.43 [facility] [place] Comment: Results are corrected for a bod y temp of 37C pCO2 Raghavendra 47.6 41.0 - 51.0 mmHg ND MD [facility] pO2 Raghavendra 52 mmHg ND [facility] HCO3 Raghavendra 29 (H) 21 - 28 mmol/L [facility] Base Excess Raghavendra 3 -2 - 3 mmol/L ND MD [facility] O2 Sat Raghavendra 87 % [facility] Specimen Anatomical Collection Method Collection Time Receive d Time (Source) Location / / Volume Laterality Blood 12/11/2022 6:21 PM 3 6:29 [facility] PM [facility] Travis Lopez MD LAB BLOOD ORDERABLES Performing Organization Address City/[facility]/ZIP Code Phon e Number [facility] Unless otherwise noted, [address] all lab tests performed by: Division of Pathology and Laboratory Medicine [address] [place] [address] Ketone Bodies Qualitative (12/11/2022 5:19 PM [facility]) P athologist Signature UA Ketones NEG NEG mg/dL [facility] Specimen Anatomical Collection Method Collection Time Receive d Time (Source) Location / / Volume Laterality Urine 12/11/2022 5:19 PM 3 5:24 [facility] PM [facility] Waleska Salinas APRN URINE ORDERABLES Performing Organization Address [facility] Code Phon e Number [facility] Unless otherwise noted, [address] all lab tests performed by: Division of Pathology and Laboratory Medicine [facility] Critical (12/11/2022 3:34 PM [facility])Only the most recent of2 resultswithin the time period is included. P athologist Signature POC Critical See Note POC [facility] Comment Comment: Test performer notified Orderin g Licensed Provider and /or designee of POC Glucose Screen critical Results.. Specimen Anatomical Collection Method Collection Time Receive d Time (Source) Location / / Volume Laterality Blood 12/11/2022 3:34 PM 3 3:34 [facility] PM [facility] Travis Lopez MD POINT OF CARE TEST ORDERABLE S Performing Organization Address City/[facility]/ZIP Code Phon e Number POC [facility] Unless otherwise noted, [place] [address] lab tests performed by: Division of Pathology and Laboratory Medicine [address] [place] [address] (ABNORMAL) POC VBG+Lac (12/09/2022 9:36 PM [facility]) athologist Signature POC VB pH 7.46 (H) [...] Clean Dev Yes POC [facility] Performing Lab [facility] POC TEL[facility] R Comment: [facility] Clinical Lab, [address] [place] [id number]; Lab Direct or: Chula Jacob MD; Waived Point of Care Testing - Gabrielle Mueller MD Specimen Anatomical Collection Method Collection Time Receive d Time (Source) Location / / Volume Laterality Blood 12/09/2022 9:36 PM 9:36 [facility] PM [facility] Roberto Carlos Walsh MD POCT ORDERABLES - DEVICE Performing Organization Address City/State/ZIP Code Phon e Number POC [facility] Unless otherwise noted, [place] [address] lab tests performed by: Division of Pathology and Laboratory Medicine [address] [place] [address] Ammonia Level (12/09/2022 6:01 PM [facility]) athologist Signature Ammonia 18 11 - 51 ND [facility] Specimen Anatomical Collection Method Collection Time Receive d Time (Source) Location / / Volume Laterality Blood 12/09/2022 6:01 PM 6:15 [facility] PM [facility] Tammy Mike MD LAB BLOOD ORDERABLES Performing Organization Address City/[facility]/ZIP Code Phon e Number [facility] Unless otherwise noted, [address] all lab tests performed by: Division of Pathology and Laboratory Medicine Brian LOUIS MD, MDA CHRISTINE: Mutation Analysis Precision Panel Report (12/04/2022 10:56 AM [facility]) Specimen (Source) Anatomical Collection Method Collection Time Re ceived Time Location / / Volume Laterality 12/04/2022 10:56 AM [facility] Narrative This result has an attachment that is no t available. Lorena DE LA PAZ MOLECULAR BIOMARKERS Performing Organization Address City/[facility] Phon e Number [facility] Unless otherwise noted, [address] all lab tests performed by: Division of Pathology and Laboratory Medicine Brian Hodges Solid Tumor Genomic Assay Fusions 2018 Interpretation and Report (12/04/2022 10:56 AM [facility]) Specimen Anatomical Collection Method Collection Time Receive d Time (Source) Location / / Volume Laterality 12/04/2022 10:56 12/04/2022 AM [facility] 10:56 AM [facility] Narrative This result has an attachment that is no t available. Lorena DE LA PAZ MOLECULAR BIOMARKERS Performing Organization Address City/[facility] Phon e Number [facility] Unless otherwise noted, [address] all lab tests performed by: Division of Pathology and Laboratory Medicine Brian Hodges Molecular Diagnostics Specimen Collection -FFPE (12/04/2022 10:56 AM [facility]) Patholo gist Method Time Signature Molecular Yes [facility] (Received) CANCER CENTER [place] Ap Link [id number] [facility] [place] Block Number BLANK ND (Qualitative) [facility] Outside [id number] ND [facility] (Qualitative) CANCER CENTER Specimen Anatomical Collection Method Collection Time Receive d Time (Source) Location / / Volume Laterality FFPE 12/04/2022 10:56 12/04/2022 AM [facility] 10:56 AM [facility] Lorena LOUIS MD NONBLOOD COLLECTIO NS Performing Organization Address City/State/ZIP Code Phon e Number [facility] Unless otherwise noted, [place] [address] CENTER all lab tests performed by: Division of Pathology and Laboratory Medicine [address] [facility] MRI Skull Base with and without Contrast (11/30/2022 11:12 AM [facility] DATA [facility]) Anatomical Region Laterality Modality Head Magnetic Resonance Specimen (Source) Anatomical Collection Method Collection Time Re ceived Time Location / / Volume Laterality 12/01/2022 9:21 AM [facility] Impressions 12/01/2022 1:06 PM [facility] 1. 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 2. Tumor likely involves the lesser wi ng of the left sphenoid bone. 3. No lateral retropharyngeal or visua lized cervical adenopathy. Narrative 12/01/2022 1:06 PM [facility] FULL RESULT: Examination: MRI SKULL BASE WITH [...] Enhanced Initial Treatment Strategy (11/27/2022 3:57 PM [facility] DATA [facility]) Anatomical Region Laterality Modality Whole Body Positron Emission To mography (PET) Specimen (Source) Anatomical Collection Method Collection Time Re ceived Time Location / / Volume Laterality 11/30/2022 8:31 AM [facility] Impressions 11/30/2022 8:38 AM [facility] DATA [facility] Subtle activity associated with subtle asymmetric fullness in posterior left nasal pharynx is compatible with reported primary tumor. No suspicious activity to suggest regional jeremiah or distant metastases. Narrative 11/30/2022 8:38 AM [facility] FULL RESULT: Examination: Contrast-Enhanced FDG PET /CT, [...] MD YUN Blood Control (11/26/2022 1:07 PM MANA[facility] DATA [facility]) P athologist Signature Molecular Yes [facility]CER CENTER (Received) Specimen Anatomical Collection Method Collection Time Receive d Time (Source) Location / / Volume Laterality Blood 11/26/2022 1:07 PM 3 9:13 MANA[facility] DATA [facility]ENTER AM [facility] Lorena Hdez HEAD PAPER TESTER MDA IP HP MOLECULAR DIAG IF ORDERABLES Performing Organization Address City/State/ZIP Code Phon e Number [facility] Unless otherwise noted, [place] [address] CENTER all lab tests performed by: Division of Pathology and Laboratory Medicine [address] Michelle Hodges (ABNORMAL) Vitamin D 25OH (11/26/2022 1:07 PM [facility]) athologist [facility] Vitamin D 25 OH 21 (L) 30 - 100 [place] ng/mL Comment: Reference Range: Deficiency: <10 ng/mL Insufficiency: 10-29 ng/mL Sufficiency: 30-100 ng/mL Potential toxicity: >100 ng/mL Testing performed at [facility], [address] [place] [address] Specimen Anatomical Collection Method Collection Time Receive d Time (Source) Location / / Volume Laterality Blood 11/26/2022 1:07 PM 3 1:19 [facility] PM [facility] Lorena Hdez APRN LAB BLOOD ORDERABLES Performing Organization Address City/[facility]/ZIP Code Phon e Number [place], [place] [id number] [place] [address], [facility] [address] (ABNORMAL) Uric Acid (11/26/2022 1:07 PM MANAGER DATA [facility]ENTER) [facility] Uric Acid 6.5 (H) 2.4 - 5.7 [place] mg/dL Comment: Testing performed at [facility], [address] [place] [address] Specimen Anatomical Collection Method Collection Time Receive d Time (Source) Location / / Volume Laterality Blood 11/26/2022 1:07 PM 3 1:19 [facility] PM [facility] Lorena Hdez APRN LAB BLOOD ORDERABLES Performing Organization Address City/[facility]/ZIP Code Phon e Number [place], [place] [id number] [place] [address], [facility] [address] NTRK3 Fusion Material Request (11/26/2022 12:43 PM [facility]) Component Value Ref Test Analysis Performed At [facility] gist Range Method Time Signature Archived The test is to be 12/04/2022 [facility] Material performed on 8:01 AM MA[facility] DATA [facility]ENTER tissue from case [id number]. The case report, slides, and blocks for [...] Tissue specimen 11/26/2022 12:43 11/26/19 (specimen) PM [facility] 12:43 PM [facility] Lorena Hdez APRN [employer] IP AP BIOMARKERS Performing Organization Address City/[facility] Phon [place] [address], [place] [address] Michelle Hodges MD NTRK2 Fusion Material Request (11/26/2022 12:43 PM [facility]) Component Value Ref Test Analysis Performed At [facility] Range Method Time Signature Archived The test is to be 12/04/2022 [facility] Material performed on 8:01 AM [facility] DATA [facility] tissue from case [id number]. The case report, slides, and blocks for [...] Tissue specimen 11/26/2022 12:43 11/26/19 (specimen) PM [facility] 12:43 PM [facility] Lorena Hdez APRN [employer] IP AP BIOMARKERS Performing Organization Address City/[facility] Phon e Number [employer] [facility] [place] [id number], [place] [address] Michelle Hodges MD NTRK1 Fusion Material Request (11/26/2022 12:43 PM [facility]) Component Value Ref Test Analysis Performed At [facility] [employer] Range Method Time Signature Archived The test is to be 12/04/2022 [facility] Material performed on 8:01 AM MA[facility] tissue from case [id number]. The case report, slides, and blocks for [...] Tissue specimen 11/26/2022 12:43 11/26/19 (specimen) PM [facility] 12:43 PM [facility] Lorena Hdez APRN [employer] IP AP BIOMARKERS Performing Organization Address City/State/[facility] Code Phon e Number [facility] [place] [address], [address] Michelle Hodges MD ERBB2 Mutation Analysis Material Request (11/26/2022 12:43 PM [facility]) Component Value Ref Test Analysis Performed At [facility] Method Time Signature Archived The test is to be 12/04/2022 [facility] Material performed on 8:01 AM MA[facility] DATA [facility]ENTER tissue from case [id number]. The case report, slides, and blocks for [...] specimen 11/26/2022 12:43 11/26/19 23 (specimen) PM [facility] 12:43 PM [facility] Lorena Hdez APRN [employer] IP AP BIOMARKERS Performing Organization Address City/State/ZIP Code Phon e Number [employer] [facility] [place] [address], [place] [address] Michelle Hodges MD ALK Mutation Analysis Material Request (11/26/2022 12:43 PM [facility]) Component Value Ref Test Analysis Performed At [facility] Method Time Signature Archived The test is to be 12/04/2022 [facility] Material performed on 8:02 AM [facility] DATA [facility] tissue from case [id number]. The case report, slides, and blocks for [...] specimen 11/26/2022 12:43 11/26/19 23 (specimen) PM [facility] 12:43 PM [facility] Lorena Hdez BORIS [employer] IP AP BIOMARKERS Performing Organization Address City/[facility]/ZIP Code Phon e Number [employer] [place] [address], [place] [address] Michelle Hodges MD MTOR Mutation Material Request (11/26/2022 12:43 PM [facility]) Component Value Ref Test Analysis Performed At [facility] Method Time Signature Archived The test is to be 12/04/2022 [facility] Material performed on 8:01 AM [facility] tissue from case [id number]. The case report, slides, and blocks for [...] specimen 11/26/2022 12:43 11/26/19 23 (specimen) PM [facility] 12:43 PM [facility] Lorena Kayla Hdez APRN [employer] IP AP BIOMARKERS Performing Organization Address City/[facility]/ZIP Code Phon [place] [address], [place] [address] Michelle Hodges MD PTEN Mutation Material Request (11/26/2022 12:43 PM [facility]) Component Value Ref Test Analysis Performed At [facility] [employer] Range Method Time Signature Archived The test is to be 12/04/2022 [facility] Material performed on 8:02 AM [facility] tissue from case [id number]. The case report, slides, and blocks for the cited accession were retrieved from archives. The pathologist examined the candidate H&E slide and selected the block appropriate to the specifications of the ordered molecular analysis. Unstained slides and H&E slide were prepared and forwarded to [facility] where the subject molecular test will be performed. Results will be reported separately. Pathologist Electronically 12/04/2022 [facility] Signature signed by Larissa March 8:02 AM BRANDAN Medrano MD on 12/04/22 8:02 AM Specimen Anatomical Collection Method Collection Time Receive d Time (Source) Location / / Volume Laterality Tissue specimen 11/26/2022 12:43 11/26/19 23 (specimen) PM [facility] 12:43 PM [facility] Lorena Hdez APRN [employer] IP AP BIOMARKERS Performing Organization Address [facility] Code Phon e Number [place] [address], [place] [address] Michelle Hodges MD EGFR Mutation Material Request (11/26/2022 12:43 PM [facility]) Component Value Ref Test Analysis Performed At [facility] [employer] Range Method Time Signature Archived The test is to be 12/04/2022 [facility] Material performed on 8:02 AM MA[facility] tissue from case [id number]. The case report, slides, and blocks for [...] Signature signed by Larissa March 8:02 AM MANA[facility] DATA [facility] MD Mitchell on 12/04/22 8:01 AM Specimen Anatomical Collection Method Collection Time Receive d Time (Source) Location / / Volume Laterality Tissue specimen 11/26/2022 12:43 11/26/19 23 (specimen) PM [facility] 12:43 PM [facility] Lorena Hdez APRN [facility] IP AP BIOMARKERS Performing Organization Address City/[facility]/ZIP Code Phon [place] Number [place] [address], [place] [address] Michelle [address] IHC PD-L1 Material Request (11/26/2022 12:43 PM MA[facility]) Specimen Anatomical Collection Method Collection Time Receive d Time (Source) Location / / Volume Laterality Tissue specimen 11/26/2022 12:43 11/26/19 23 (specimen) PM [facility] 12:43 PM [facility] Lorena Hdez APRN [facility] AP BIOMARKERS Performing Organization Address City/[facility]/ZIP Code Phon [place] Number [place] [address], [place] [address] IHC HER2/arcenio Material Request (11/26/2022 12:43 PM MA[facility]) Specimen Anatomical Collection Method Collection Time Receive d Time (Source) Location / / Volume Laterality Tissue specimen 11/26/2022 12:43 11/26/19 23 (specimen) PM [facility] 12:43 PM MA[facility] Lorena Hdez APRN [facility] AP BIOMARKERS Performing Organization Address City/[facility] Code Phon e Number [place] [address], [place] [address] [facility] Testosterone Level (11/17/2022 12:11 PM MANAGER DATA CENTER) athologist Signature Testoster Tot <3 3 - 41 [place] ng/dL Comment: Reference Ranges: Male: Age 20 - 49 249 - 836 Age >=50 1 93 - 740 Female: Age 20 - 49 8 - 48 Age >=50 3 - 41 Testing performed at [facility], [address] [place] [address] Specimen Anatomical Collection Method Collection Time Receive d Time (Source) Location / / Volume Laterality Blood 11/17/2022 12:11 11/17/2022 PM [facility] 12:12 PM MANAGER DATA CENTER Red Berman HEAD PAPER TESTER LAB BLOOD ORDERABLES Performing Organization Address City/State/ZIP Code Phon e Number LINSEY JIMENEZ [facility] [place] [address] LINSEY JIMENEZ [address] [facility], [facility] [address] Pathology Outside Interpretation (10/16/2022) Component Value Ref Test Analysis Performed Pathologis t Range Method Time At Signature Materials Accession#, Stained, Block, Unstained Collected Received 11/27/2022 [employer] [facility] Received A. [id number], 7 SS, 1 BLOCKS, 0 USS 10/16/2022 11/24/2022 5:08 PM MANA[facility] DATA [facility]ENTER Addendum 1 At the request of the donell machado physician the following studies were performed and interpreted at [facility]. 11/27/2022 [employer] [facility] Addendum 5:08 PM electronic ally The tumor cells are negative for Her2 (0%) by immunohi stochemical analysis. 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 MD Ashleigh on 11/27/2022 at PD-L1 (Clone 22C3, [employer]) Combine d Positive Score (CPS): is less than 1 5:08 PM Assay Information: This assa y is manufactured by [employer] and uses a monoclonal anti-PD-L1, clone 22C3. It is performed on formalin-fixed paraffin- embedded tissue using an [employer]ako autostainer a nd polymer based detection k it, as specified by the shrink pit operator. It is approved for use as a truck farmer diagnostic for specific therapies on certain tumor [...] is defined as CPS 100. Diagnosis Outside ([id number], 7 SS, 1 BLOCKS, 0 USS, colle cted on 10/16/2022): 11/27/2022 [employer] [facility] Electronically 5:08 PM signed by Nasopharynx, biopsy: BRANDAN Duarte, ADENOID CYSTIC CARCINOMA, CRIBRIFORM TYPE see comment MD Ashleigh on 11/26/2022 at MDW/SALEEM 9:43 AM Comment Submitted 11/27/2022 [facility] immunohistochemical 5:08 PM stains performed by MA[facility] referring institution show that CK7 highlights the epithelial cells, and p63 and p40 highlights the myoepithelial cells. The morphology and immunophenotype is supportive of this classification. Biomarker Tumor block: 11/27/2022 [facility] Block(s) [id number] 5:08 PM MA[facility] DATA [facility]ENTER Disclaimer "Some tests reported 11/27/2022 [employer] [facility] here may have been 5:08 PM developed and [facility] performance characteristics determined by [facility] Pathology and Laboratory Medicine. These tests have not been specifically cleared or approved by the U.S. Food and Drug Administration. If applicable, controls were reviewed and showed appropriate reactivity." Specimen (Source) Anatomical Collection Method Collection Time Re ceived Time Location / / Volume Laterality Tissue specimen 10/16/2022 11/24/2022 3 :02 (specimen) PM MANA[facility] Alexa Alvarez MD LAB PATHOLOGY ORDERABLES Performing Organization Address City/State/ZIP Code Phon e Number [employer] [facility] [place] [address], [address] after 09/25/2022 Insurance Payer Benefit Plan / Subscriber ID Effective Phone Address T ype Group Dates MEDICARE MEDICARE PART A [id number] 2010-Pres [phone] [place] Medicare AND B ent 782 SOLUTIONS [address] [facility] [place] [phone] [place] [id number] 2022-Pres [address] Medicaid TRADITIONAL TRADITIONAL ent [id number] [place] [address] Advance Directives Code Status Date Activated Date Inactivated Comments Full Code 02/06/2023 1:33 AM 02/16/2023 6:41 PM Code Status Date Activated Date Inactivated Comments Full Code 01/26/2023 5:50 PM 02/01/2023 8:34 PM Full Code 01/11/2023 10:19 PM 01/18/2023 9:39 PM Full Code 12/09/2022 10:42 PM 12/15/2022 9:30 PM Care Teams Rn Field Relationship Specialty Start Date End Date Bina Obando PCP - External Otolaryngology 11/12/22 MD Joana Referring [address] [phone] Kenya Agarwal MD PCP - General Head and Neck Surgery 11/12/[address] [place] [id number] Trent Irving MD Family Practice 11/26/22 [address] [place] [address] Randall Sheriff [facility] 11/26/22 MD Maciej [address] [place], [place] [phone] Vignesh Waddell, Pulmonary Medicine 11/26/[address] [place] [id number] Naa Miller Cardiology 11/26/22 MD Emerald [address] [id number] Tapan Harper Gastroenterology 11/26/22 MD Rosalio [address] [place], [place] [phone] Rafeal Rosas, Ophthalmology 11/26/[address] [place] [phone] Suzanne Mcgrath, Consulting Physician Ophthalmology 12/29/[address] [place] [phone] Winter Luu, Consulting Physician Radiation Oncology [address] [place] [phone] Vaibhav Rosario, Consulting Physician Medical Oncology 11/26/[address] [place] [phone] Williams, Consulting Physician Pain Management 01/20/23 MD Rogerio [address] [place] [phone] Rosana Harkins MD Consulting Physician Hematology and Oncology 03/31/[address] [place] [phone] No Andrade, Consulting Physician Endocrinology 09/01/[address] [place] [phone]
[2023-09-25 11:56] LABS: Absolute Lymphocytes (CBC) 1.3 K/uL (0.7-4.9); Hematocrit 47.6 % (36.0-45.0); Lymphocytes % 12.9 % (15.3-44.8); MCV 90.6 fL (80-100); MPV 8.8 fL (7.6-11.3); Platelets 234 thou/uL (152-406); RBC Red Blood Cell Count 5.26 M/uL (3.86-4.86)
[2023-09-25] MEDS ORDERED: MORPHINE 4 MG/ML SYR ONE (11:59)
[2023-09-25] MEDS ORDERED: ONDANSETRON 4 MG/2 ML VIAL ONE (11:59)
[2023-09-25] MEDS ORDERED: NA CHLORIDE 0.9% 1,000 ML ONE (11:59)
[2023-09-25 12:10] LABS: Albumin 3.2 g/dL (3.4-5.0); Bilirubin Total 0.5 mg/dL (0.2-1.0); Potassium 3.6 mEq/L (3.5-5.1); Protein, Total 7.6 g/dL (6.4-8.2)
--- NOTE | 2023-09-25 12:42 | RAD REPORT ---
EXAM DESCRIPTION: CT - Abdomen W Contrast CLINICAL HISTORY: Post gastric bypass;Abd pain Abdominal pain COMPARISON: Abdomen Pelvis W Contrast dated 07/01/[address] scans are performed using dose optimization technique as appropriate and may includ e automated exposure control or mA/KV adjustment according to patient size. FINDINGS: The lower lung platt are clear. Postsurgical changes are seen about the stomach and small intestine related and gastric bypass. Oral contrast is seen filling a small stomach cavity and extending into the left-sided small bowel loops. No obstruction or other abnormality related to this. Cholecystectomy clips also present. There is a l eft-sided drainage catheter in place. The liver, spleen, pancreas, adrenal glands and kidneys are within normal limits. No free fluid, bowel obstruction or free air. No significant adenopathy in the abdomen. Mild lower lumbar degenerative changes. IMPRESSION: Postsurgical changes of gastric bypass are noted without acute finding. No oral contrast leakage or obstruction.
--- NOTE | 2023-09-25 12:55 | EDPHYS ---
Physician Documentation [facility] Janine Name: Maria De Jesus Acosta Age: 58 yrs Sex: Female : 1965 Arrival Date: 09/25/2023 Time: 10:52 Bed 14 Private MD: Trent Irving H ED Physician Renan Alvarez HPI: 09/25 12:30 This 58 yrs old Female presents to ER via Wheelchair with complaints of sp3 Decreased Appetite, Weakness. 12:30 58-year-old female with a history of COPD, diabetes, CHF and recent gastric bypass sp3 performed at [facility] on August 16 now presents to the ED with diffuse abdominal pain, decreased appetite and p.o. intake and generalized weakness. Symptoms have been occurring for the last 3 to 4 days and are gradual in onset. 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 Historical: - Allergies: 10:58 Doxycycline; ll1 10:58 kiwi; ll1 10:58 metoclopramide HCl; ll1 10:58 orange juice; ll1 10:58 Reglan; ll1 - PMHx: 10:58 Asthma; CHF; COPD; Crohn's; Diabetes - NIDDM; Hypertension; Nasal cancer; ll1 - PSHx: 10:58 Appendectomy; Appendectomy; Cholecystectomy; Cholecystectomy; Ligation of fallopian ll1 tube; partial hysterectomy; Shoulder; - Immunization history:: Adult Immunizations up to date. - Social history:: Smoking status: Patient denies any tobacco usage or history of. ROS: 12:31 Constitutional: Negative for fever, chills, and weight loss, Eyes: Negative for injury, sp3 pain, redness, and discharge, ENT: Negative for injury, pain, and discharge, Neck: Negative for injury, pain, and swelling, Cardiovascular: Negative for chest pain, palpitations, and edema, Respiratory: Negative for shortness of breath, cough, wheezing, and pleuritic chest pain, Back: Negative for injury and pain, MS/Extremity: Negative for injury and deformity, Skin: Negative for injury, rash, and discoloration, Neuro: Negative for headache, weakness, numbness, tingling, and seizure, Psych: Negative for depression, anxiety, suicide ideation, homicidal ideation, and hallucinations, Allergy/Immunology: Negative for hives, rash, and allergies, Endocrine: Negative for neck swelling, polydipsia, polyuria, polyphagia, and marked weight changes, Hematologic/Lymphatic: Negative for swollen nodes, abnormal bleeding, and unusual bruising, 12:31 All other systems are negative, Exam: 12:31 Constitutional: This is a well developed, well nourished patient who is awake, alert, sp3 and in no acute distress. Head/Face: Normocephalic, atraumatic. Eyes: Pupils equal round and reactive to light, extra-ocular motions intact. Lids and lashes normal. Conjunctiva and sclera are non-icteric and not injected. Cornea within normal limits. Periorbital areas with no swelling, redness, or edema. ENT: Nares patent. No nasal discharge, no septal abnormalities noted. External auditory canals are clear. Oropharynx with no redness, swelling, or masses, exudates, or evidence of obstruction, uvula midline. Mucous membranes moist. Neck: Trachea midline, no thyromegaly or masses palpated, and no cervical lymphadenopathy. Supple, full range of motion without nuchal rigidity, or vertebral point tenderness. No Meningismus. Chest/axilla: Normal chest wall appearance and motion. Nontender with no deformity. No lesions are appreciated. Cardiovascular: Regular rate and rhythm with a normal S1 and S2. No gallops, murmurs, or rubs. Normal PMI, no JVD. No pulse deficits. Respiratory: Lungs have equal breath sounds bilaterally, clear to auscultation and percussion. No rales, rhonchi or wheezes noted. No increased work of breathing, no retractions or nasal flaring. Back: No spinal tenderness. No costovertebral tenderness. Full range of motion. Skin: Warm, dry with normal turgor. Normal color with no rashes, no lesions, and no evidence of cellulitis. MS/ Extremity: Pulses equal, no cyanosis. Neurovascular intact. Full, normal range of motion. Neuro: Awake and alert, GCS 15, oriented to person, place, time, and situation. Cranial nerves II-XII grossly intact. Motor strength 5/5 in all extremities. Sensory grossly intact. Cerebellar exam normal. Normal gait. Psych: Awake, alert, with orientation to person, place and time. Behavior, mood, and affect are within normal limits. 12:31 Abdomen/GI: Diffuse abdominal pain without rebound or guarding. Nonsurgical abdomen noted., Vital Signs: 11:14 BP 116 / 68; Pulse 105; Resp 22; Temp 97.8; Pulse Ox 98% ; Weight 88.45 kg; Height 5 ll1 ft. 3 in. ; Pain 7/10; 13:15 BP 142 / 88; Pulse 98; Resp 18; Pulse Ox 95% on R/A; cm10 11:14 Body Mass Index 34.54 (88.45 kg, 160.02 cm) ll1 11:14 Pain Scale: Adult ll1 MDM: 11:17 Patient medically screened. sp3 12:32 Data reviewed: vital signs, nurses notes, lab test result(s), radiologic studies. ED sp3 course: 58-year-old female with diffuse abdominal pain and extensive past medical history status post gastric bypass for approximately 30 days. Will obtain laboratory values and CT scan of the abdomen pelvis with IV and p.o. contrast adjusted for Patria-en-Y. Disposition pending work-up and patient course. Possible consultation with bariatric surgeon if indicated.. 12:54 ED course: Laboratory values are within normal limits and CT demonstrates no sp3 anastomotic leak no other concerning findings. We will safely discharge patient home at this time with follow-up to her bariatric surgeon.. 09/25 11:39 Order name: CBC with Diff; Complete Time: 12:48 sp3 09/25 11:39 Order name: CMP; Complete Time: 12:48 sp3 09/25 11:39 Order name: Lipase; Complete Time: 12:48 sp3 09/25 11:39 Order name: CT Abdomen - PO and IV Contrast; Complete Time: 12:48 sp3 09/25 11:39 Order name: IV Saline Lock; Complete Time: 11:49 sp3 09/25 11:39 Order name: Labs collected and sent; Complete Time: 11:49 sp3 Administered Medications: 11:54 Drug: NS 0.9% IV 1000 ml IV at 1 bolus Per protocol; 1000 mL bolus Route: IV; Rate: 1 ko1 bolus; Site: right antecubital; 13:15 Follow up: Response: No adverse reaction; IV Status: Completed infusion; IV Intake: cm10 500ml 11:55 Drug: Ondansetron IVP 4 mg IVP once; over 2 minutes Route: IVP; Site: right antecubital;ko1 13:15 Follow up: Response: No adverse reaction cm10 11:55 Drug: morphine IVP or IV 4 mg IVP once over 4 mins Route: IVP; Infused Over: 4 mins; ko1 Site: right antecubital; 13:15 Follow up: Response: No adverse reaction cm10 Disposition Summary: 09/25/23 12:55 Discharge Ordered Notes: Location: Home sp3 Condition: Stable sp3 Diagnosis - Abdominal pain, unspecified sp3 Followup: sp3 - With: Private Physician - When: Upon discharge from the Emergency Department - Reason: Recheck today's complaints, Continuance of care Discharge Instructions: - Discharge Summary Sheet sp3 - Abdominal Pain, Adult sp3 - Laparoscopic Gastric Bypass Surgery, Care After sp3 Forms: - Medication Reconciliation Form sp3 - Thank You Letter sp3 - Antibiotic Education sp3 - Prescription Opioid Use sp3 - Patient Portal Instructions sp3 - Leadership Thank You Letter sp3 Signatures: Dispatcher [employer] Idalia Gibbons RN RN ll1 Renan Alvarez MD MD sp3 Marycarmen Gale RN RN ko1 Susan Pugh RN cm10
--- NOTE | 2023-09-25 12:55 | ER ---
Nurse's Notes [facility] Name: Maria De Jesus Acosta Age: 58 yrs Sex: Female : 1965 Arrival Date: 09/25/2023 Time: 10:52 Bed 14 Private MD: Trent Irving H Diagnosis: Abdominal pain, unspecified Presentation: 09/25 11:14 Chief complaint: Patient states: Bariatric SX 09/16. Unable to eat or drink since. ll1 Feels weak and shaky today. N/V off on the entire time also. Coronavirus screen: Client denies travel out of the [place] in the last 14 days. Ebola Screen: Patient denies travel to an Ebola-affected area in the 21 days before illness onset. No acute neurological deficit is noted. Initial Sepsis Screen: Does the patient meet any 2 criteria? No. Patient's initial sepsis screen is negative. Does the patient have a suspected source of infection? Yes: Acute abdominal pain. Risk Assessment: Do you want to hurt yourself or someone else? Patient reports no desire to harm self or others. Onset of symptoms was September 16, 2023. 11:14 Method Of Arrival: Wheelchair ll1 11:14 Acuity: EMERALD 3 ll1 Triage Assessment: 12:01 General: Appears in no apparent distress. comfortable, Behavior is calm, cooperative. cm10 Pain: Denies pain. EENT: No deficits noted. No signs and/or symptoms were reported regarding the EENT system. Neuro: No deficits noted. Seymour Agitation-Sedation Scale (RASS): 0 - Alert and Calm Level of Consciousness is awake, alert, obeys commands, Oriented to person, place, time, situation, Appropriate for age. Cardiovascular: No deficits noted. Patient's skin is warm and dry. Respiratory: No deficits noted. Airway is patent Respiratory effort is even, unlabored, Respiratory pattern is regular, symmetrical. GI: Reports intolerance of fluids, intolerance of food. Derm: No deficits noted. Skin is intact, Skin is pink, warm \T\ dry. Musculoskeletal: No deficits noted. No signs and/or symptoms reported regarding the musculoskeletal system. Range of motion: intact in all extremities. Stroke Activation: Symptom onset > 6 hours Physician: Stroke Attending; Name: ; Notified At: ; Arrived At: Physician: Chief Stroke Resident; Name: ; Notified At: ; Arrived At: Physician: Stroke Resident; Name: ; Notified At: ; Arrived At: Physician: ED Attending; Name: ; Notified At: ; Arrived At: Physician: ED Resident; Name: ; Notified At: ; Arrived At: Historical: - Allergies: 10:58 Doxycycline; ll1 10:58 kiwi; ll1 10:58 metoclopramide HCl; ll1 10:58 orange juice; ll1 10:58 Reglan; ll1 - PMHx: 10:58 Asthma; CHF; COPD; Crohn's; Diabetes - NIDDM; Hypertension; Nasal cancer; ll1 - PSHx: 10:58 Appendectomy; Appendectomy; Cholecystectomy; Cholecystectomy; Ligation of fallopian ll1 tube; partial hysterectomy; Shoulder; - Immunization history:: Adult Immunizations up to date. - Social history:: Smoking status: Patient denies any tobacco usage or history of. Screenin:[facility] ED Fall Risk Assessment (Adult) History of falling in the last 3 months, cm10 including since admission No falls in past 3 months (0 pts) Confusion or Disorientation No (0 pts) Intoxicated or Sedated No (0 pts) Impaired Gait No (0 pts) Mobility Assist Device Used No (0 pt) Altered Elimination No (0 pt) Score/Fall Risk Level 0 - 2 = Low Risk Oriented to surroundings, Maintained a safe environment, Hourly rounding (assess needs \T\ fall precautionary measures) done. Abuse screen: Denies threats or abuse. Denies injuries from another. Nutritional screening: No deficits noted. Tuberculosis screening: No symptoms or risk factors identified. Vital Signs: 11:14 BP 116 / 68; Pulse 105; Resp 22; Temp 97.8; Pulse Ox 98% ; Weight 88.45 kg; Height 5 ll1 ft. 3 in. ; Pain 7/10; 13:15 BP 142 / 88; Pulse 98; Resp 18; Pulse Ox 95% on R/A; cm10 11:14 Body Mass Index 34.54 (88.45 kg, 160.02 cm) ll1 11:14 Pain Scale: Adult ll1 ED Course: 10:56 Patient arrived in ED. as 10:56 Trent Irving DO is Private Physician. as 10:58 Arm band placed on. ll1 11:01 Renan Alvarez MD is Attending Physician. sp3 11:18 Triage completed. ll1 11:27 Marycarmen Gale, JCARLOS is Primary Nurse. ko1 11:32 Patient placed in an exam room, on a stretcher. ll1 11:49 CBC with Diff Sent. bc6 11:49 CMP Sent. bc6 11:49 Lipase Sent. bc6 11:49 Inserted saline lock: 20 gauge in right antecubital area, using aseptic technique. bc6 Blood collected. 12:03 Patient has correct armband on for positive identification. Bed in low position. Call cm10 light in reach. Side rails up X2. Provided Education on: ER process and procedures. 12:33 CT Abdomen - PO and IV Contrast In Process Unspecified. EDMS 12:39 Patient moved back from CT. cm10 13:16 No provider procedures requiring assistance completed. IV discontinued, intact, cm10 bleeding controlled, No redness/swelling at site. Pressure dressing applied. Administered Medications: 11:54 Drug: NS 0.9% IV 1000 ml IV at 1 bolus Per protocol; 1000 mL bolus Route: IV; Rate: 1 ko1 bolus; Site: right antecubital; 13:15 Follow up: Response: No adverse reaction; IV Status: Completed infusion; IV Intake: cm10 500ml 11:55 Drug: Ondansetron IVP 4 mg IVP once; over 2 minutes Route: IVP; Site: right antecubital;ko1 13:15 Follow up: Response: No adverse reaction cm10 11:55 Drug: morphine IVP or IV 4 mg IVP once over 4 mins Route: IVP; Infused Over: 4 mins; ko1 Site: right antecubital; 13:15 Follow up: Response: No adverse reaction cm10 Medication: 13:16 VIS not applicable for this client. cm10 Intake: 13:15 IV: 500ml; Total: 500ml. cm10 Outcome: 12:55 Discharge ordered by . sp3 13:15 Discharged to home via wheelchair, with significant other, cm10 13:15 Condition: good 13:15 Discharge instructions given to patient, Instructed on discharge instructions, follow up and referral plans. Demonstrated understanding of instructions, follow-up care, 13:16 Patient left the ED. cm10 Signatures: Dispatcher [employer] EDMS Zohreh Pugh Lynsay, RN RN ll1 Renan Alvarez MD MD sp3 Marycarmen Gale RN RN ko1 Nayana [address] Susan Pugh RN RN cm10 Corrections: (The following items were deleted from the chart) 11:18 11:14 Chief complaint: Patient states: Bariatric SX 09/16. Unable to eat or drink ll1 since. Feels weak and shaky today ll1
[2023-09-25 14:01] VITALS: TEMP 97.8
[2023-09-25 14:03] VITALS: BP 142/88; O2SAT 95
== END 2023-09-25 13:16 | disposition home or self-care (01) ==
LOC: ER 10:52
DX: R10.9 Unspecified abdominal pain (principal); R53.1 Weakness; Z98.84 Bariatric surgery status; Z88.1 Allergy status to other antibiotic agents; I10 Essential (primary) hypertension; J44.9 Chronic obstructive pulmonary disease, unspecified; E11.9 Type 2 diabetes mellitus without complications; Z88.8 Allergy status to other drugs, medicaments and biological substances; Z91.018 Allergy to other foods
CPT/HCPCS: 96361; 85025; 36415; 83690; 80053; 74160; 96375; 96374; 99284; Q9967; J2405; J7030

== ENCOUNTER 2023-09-26 11:57 | Emergency (ER) | payer OTHER ==
--- OUTSIDE RECORDS SUMMARY | 2023-09-26 12:08 | XMS REPORT | Clinical Summary ---
:1965 Author Organization [facility] MD Suraj bates [facility] Address [address] [place] [address] Care Team Providers Name Role Phone Bina Obando MD Unavailable Kenya Agarwal MD Primary Care Provider Trent Irving MD Unavailable Randall Sheriff MD Unavailable Vignesh Waddell MD Unavailable Naa Miller MD [facility]available [facility] Unavailable Rafael Rosas MD Unavailable Suzanne [...] procedure Metoclopramide Hcl Other (See 10/16/2022 Comments) [place] Juice Nausea And Low 04/18/2021 Vomiting, GI [...] Active (Easy Comfort Pen insulin 4 times Paton) 31 gauge x a day 03/16" ndleIndications: [...] 3 diabetes mellitus doses, notify without complication encoding clerk if you are feeling well and we [...] ndle 23 rizatriptan 0 08/25/202212/30 Discont inued (MAXALT-LINE TENDER FLAKEBOARD) 5 mg 02/18 (E rror) disintegrating tablet [...] basilic veins, Thrombosis of left cephalic vein, international relations professor use of anticoagulant metFORMIN (GLUCOPHAGE) TAKE 1 [...] Active Problems Problem Noted Date Diagnosed Date MCC use of anticoagulant 03/31/2023 Acute thrombosis of [...] percent 01/12/2023 05/25/2023 indicating poor diabetic control MCC current use of systemic steroid 12/10/2022 05/25/2023 Encounters Date Type Department Care Team Description 09/21/2023 Telephone Endocrine Center Brian Andrade MD Blvd Main Bldg, 6th [place] [address] 09/13/2023 Ancillary Procedure Lindy Flynni d cystic 10:15 AM Ambrose BALJINDER Sotelo carcinoma of MUD JACK OPERATOR [facility] nasopharyn x, NOS [address] [address] 09/13/2023 Travel 09/10/2023 Telephone Lidny Flynn Ambrose - BALJINDER Sotelo Radiation Oncology [address] [place] [address] 08/30/2023 Procedure visit Endocrine Center Skyla, Type 2 diabetes mellitus wit h hyperglycemia (Primary Dx); 10:30 AM Brian Gomes MD Current use of insulin; CDT Blvd Hemoglobin A1c greater than 10 percent indicating poor diabetic control; Main Bldg, 6th Alanine amino transferase above reference range; Floor Adult BMI 60-69.9 [place] [address] 08/16/2023 Refill Lorena James Adenoid cysti c Ambrose Kayla, BRIDGE TENDER carcinoma of [facility] nasopharyn x, [place] [address] 08/02/2023 Orders Only Endocrine Center Jose, Type 2 diabetes [address] Calixto APRN mellitus with out Blvd complication (Primary Main Bldg, 6th Dx) [place] [address] 07/28/2023 Telemedicine Endocrine Center sarbjit, Type 2 diabetes mellitus wit hout complication (Primary Dx); 9:15 AM Brian Otto MD 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 CDT Blvd Main Bldg, 6th [place] [address] 07/22/2023 Documentation Head and Neck [facility] - Bridget Lund, Ophthalmology RN [address] Main Bldg, 9th [place] [address] 07/20/2023 Refill Endocrine Center Jose, Abnormal cortisol [address] Seliece, BRIDGE TENDER Blvd Main Bldg, 6th [place] [address] 07/06/2023 Telephone Endocrine Center Garcia, [address], BRIDGE TENDER Blvd Main Bldg, 6th [place] [address] 07/02/2023 Orders Only Head and Neck McAnulty, Adenocarcinoma of Center - Surgical Red M, nasopharyn x (Primary Oncology BRIDGE TENDER Dx) [address] Main Bldg, 10th Floor, [place] [address] 06/22/2023 Procedure visit Endocrine [facility], Type 2 diabetes 10:00 AM Brian Otto MD mellitus with CDT Blvd hyperglycemia Main Bldg, 6th (Primary Dx) [place] [address] 06/22/2023 Orders [facility] Type 2 diabetes Brian Otto MD mellitus with Blvd hyperglycemia Main Bldg, 6th (Primary Dx) [place] [address] 06/21/2023 Telephone Endocrine Center Moses Angela, 9:00 AM [address] BRIDGE TENDER CDT Blvd Needle, Freya Main Bldg, 6th A, [place] [address] 06/17/2023 Treatment Monico Castellano, Dysarthria (P rimary Dx); 1:00 PM Linsey Larsen MD Oropharyngeal dysphagia CDT Speech Pathology Sher, [address] [place] [address], [facility]-SPE[place] [address] 06/17/2023 Documentation MD Kulwant Olivarez, Linsey Scruggs [facility]-SPEECH THERAPIST TECHNICIAN Speech Pathology [address] [place] [address] 06/17/2023 Documentation MD Kluwant Olivarez, [facility], [facility]-SPEECH THERAPIST TECHNICIAN Speech Pathology [address] [place] [address] 06/17/2023 Travel 06/16/2023 Telephone [facility] Surgical Red M, Oncology BRIDGE TENDER [address] Parm[address] Main Bldg, 10th Floor, [place] [address] 06/08/2023 Documentation Endocrine Center [facility], [address] JCARLOS Fernandez Main Bldg, 6th [place] [address] 06/06/2023 Refill Lorena James Adenoid cysti c [facility], BRIDGE TENDER carcinoma of [address] [place] [address] nasopharyn x, [place] [address] 05/26/2023 Telemedicine Endocrine Center Jose, Type 2 diabetes mellitus wit h hyperglycemia (Primary Dx); 3:30 PM Brian Calixto APRN Abnormal el isol CDT Blellie Main Bldg, 6th [place] [address] 05/26/2023 Telephone Endocrine Center Garcia, [address] Main Bldg, 6th [place] [address] 05/26/2023 Telephone Endocrine Center Jenny, [address] Main Bldg, 6th [place] [address] 05/25/2023 Orders Only Endocrine Center Garcia, Type 2 diabetes mellitus wit h hyperglycemia (Primary Dx); Brian Calixto APRN Abnormal el isol; Blvd Long-term (current) use of i nsulin Main Bldg, 6th [place] [address] 05/24/2023 Telephone Endocrine Center Raymond, 11:00 AM Brian Otto MD CDT Blvd Freya Kimball, 6th A, [place] [address] 05/21/2023 Documentation Endocrine Center Akil Edwards [address] Main Bldg, 6th [place] [address] 05/21/2023 Documentation Pain Management Randall Ferrer [facility] [address] Main Bldg, 4th [place] [address] 05/18/2023 Telephone Endocrine Center [facility], 2:00 PM MD OTONIEL Foy Pamela Main Bldg, 6th A, [place] [address] 05/11/2023 Telephone Endocrine Center Jose [facility]5 BORIS Coombs Main Bldg, 6th [place] [address] 05/02/2023 Telephone Endocrine Center [facility], [facility]5 MD Agata English Main Bldg, 6th [place] [address] 04/22/2023 Follow-Up MD Kulwant Power, Adenoid cystic 3:40 PM Linsey Esposito MD carcinoma of [facility] Thoracic Medicine nasopharynx, NOS [address] [place] [address] 04/22/2023 Follow-Up Winter Shaw Adenoid cystic 2:30 PM Linsey Rubalcava MD carcinoma of T Radiation nasopharynx, NO S Oncology [address] [address] 04/22/2023 Ancillary Procedure Winter Shaw Adenoid cystic 12:15 PM Linsey Rubalcava MD carcinoma of [facility] nasopharyn x, NOS [address] [address] 04/22/2023 Travel 04/09/2023 Refill Pain Management Martha, Chronic pain Center JCARLOS Tracey [address] Main Bldg, 4th [place] [address] 04/08/2023 Refill Pain Management Miguel Gordon in Center MD Rebecca [address] Main Bldg, 4th [place] [address] 03/31/2023 Office Visit Internal Medicine Rosana Harkins MD MCC use of anticoagulant (Primary Dx); 10:30 AM Center - Adenoid cystic carcinoma of nasopharynx, NOS; CDT Hematology Deep venous thrombosis <Unsp ecified side>; [address] Acute thrombos is of right axillary vein; Blvd Bilateral acute thrombosis o f basilic veins; [facility], 6th Thrombosis of left cephalic vein [place] [address] 03/31/2023 Travel 03/26/2023 Telephone MD Blum in [facility] Ge[facility] Singer, RN Medicine [address] [place] [address] [address] [place] [address] 03/23/2023 Telephone Lindy Flynn Ambrose BALJINDER Todd Radiation Oncology [address] [place] [address] 03/23/2023 Orders Only Lindy Flynn Ambrose BALJINDER Todd Radiation Oncology [address] [place] [address] 03/19/2023 Telemedicine Endocrine Center Angela Lopes, Type 2 diabetes 1:30 PM [address] BRIDGE TENDER mellitus witho ut CDT Blvd complication (Primary Main Bldg, 6th Dx) [place] [address] 03/18/2023 Telephone MD Kulwant Power Ambrose MD Vaibhav [address] [place] [address] 03/16/2023 Orders Only Lorena James Adenoid cysti c Ambrose Kayla, BRIDGE TENDER carcinoma of [facility] [facility] nasopharyn x, NOS South (Primary Dx) [place] [address] 03/12/2023 Nutrition Clinical Kenya Agarwal 11:00 AM Mendez Smith MD CDT For your Lian Jaramillo, RD appointment location directions please call: 03/11/2023 Infusion MD Kulwant Hdez Lorena Adenoid cysti c 1:30 PM [facility], BRIDGE TENDER carcinoma of CDT Infusion nasopharynx, NOS [facility] [facility] (Primary D x) South 4th [place] [address] 03/11/2023 Follow-Up Lorena James Adenoid cysti c 11:20 AM [facility], BRIDGE TENDER carcinoma of CDT [facility] [facility] NOS [facility] (Primary Dx) [place] [address] 03/11/2023 Travel 03/09/2023 [facility]phone [facility] BRIDGE TENDER [address] [place] [address] 03/04/2023 Nutrition Clinical Kenya Agarwal 10:00 AM Mendez Smith MD CDT For your Lian Jaramillo, RD appointment location directions please call: 03/04/2023 Orders Only MD [facility]ulwant [facility]dez [facility], BRIDGE TENDER [address] [place] [address] 03/04/2023 Telephone MD Kulwant Kwon Ambrose - Tita Mayorga, Thoracic Medicine RN 0 [place] [address] 03/04/2023 Orders Only Pain Management Miguel Gordon Cancer [facility] Kandice Fernandez MD pain (Primary Dx) [address] Main Bldg, 4th [place] [address] 03/03/2023 Follow-Up MD Kulwant Power, Adenoid cystic carcinoma of nasopharynx, NOS; 11:40 AM Linsey Esposito MD Deep venous th rombosis <Unspecified side> CDT Thoracic Medicine [address] [place] [address] 03/03/2023 Refill Pain Management Tyrell Chronic pain Center [facility], BRIDGE TENDER [address] Main Bldg, 4th [place] [address] 03/03/2023 Travel 03/02/2023 Refill Pain Management Granger Chronic pain [facility], BRIDGE TENDER [address] Main Bldg, 4th [place] [address] 02/26/2023 Telemedicine MD Blum in Miguel Gordon Chronic mehnaz n (Primary 8:30 AM [place] - Geremias Fernandez MD Dx) CDT Medicine [address] [facility] [address] [place] [address] 02/25/2023 Nutrition Clinical Kenya Agarwal 10:00 AM Mendez Smith MD CDT For your Lian Jaramillo, RD appointment location directions please call: 02/19/2023 Telephone Anthony Saldaña RN Radiation Oncology [address] [address] 02/18/2023 Nutrition Kenya Osullivan 10:00 AM Mendez Smith MD CDT For your Lian Jaramillo, RD appointment location directions please call: 02/12/2023 Clinical Support Winter Shaw 4:15 PM Linsey Rubalcava MD CDT Radiation Oncology [address] [address] 02/12/2023 Hospital Encounter Radiation Kenya Agarwal Discharge 7:00 AM Treatment Kandice Smith MD Disposition: Home CDT - [address] 02/12/2023 Blvd 11:59 PM Main Bldg CDT [place] [address] 02/12/2023 Documentation Radiation [facility] MD Gini [address] [facility] Main Bldg [place] [address] 02/12/2023 Orders Only Winter Shaw Adenocarcinoma of nasopharynx (Primary Dx); Ambrose Suzie Rubalcava MD Adenoid cystic carcinoma of nasopharynx, NOS Radiation Oncology 22[address] [facility] 1st [place] [address] 02/12/2023 Orders Only Pain Management Bruce, Neoplasm rel ated pain (acute) (chronic) (Primary Dx); [place] MD Elvis Chronic pain [address] [facility] Main Bldg, 4th [place] [address] 02/10/2023 Orders Only Head and Neck Charla Solis, Oropharyngea l Center - Speech CCC-SPEECH THERAPIST TECHNICIAN dysphagia (P rimary Pathology Dx) [address] [facility] Main Bldg, 10th [place] [address] 02/08/2023 Hospital Encounter Radiation Kenya Agarwal Discharge 6:00 AM Treatment Center MD Sarah Disposition: Home CDT - [address] 02/08/2023 Blvd 11:59 PM Main Bldg CDT [place] [address] 02/06/2023 Travel 02/05/2023 Hospital Encounter MAIN 21SW Deneen Guevara B, Intractable nausea and vomit ing (Primary Dx); 4:49 PM [facility] MD Type 2 diabetes mellitus with hyperglyce moncho; CDT - Tracie Watgeorgea, Swallowing painful; 02/16/2023 [place] [address] MD Felisa Dyspnea; 4:40 PM [phone] Brooks, Adenoid cystic carcinoma of nasopharynx, NOS; CDT MD Romana Chronic pain; Amanda Proctor, Deep venous th rombosis <Unspecified side>; Type 2 diabetes mellitus without complic ation; Soria, Son Shortness of br flor Cisneros MD Discharge Disposition: Home Derrick Gill MD Mohammed, MD Phyllis See Michelle, MD 02/05/2023 Telephone MD Kulwant Power, ... (The patien t's Linsey Esposito MD son [facility] Thoracic Medicine is not [address] [place] [address] feeling we ll she South feels cold [place], [place] hyperventila ting [address] little bit, but the [phone] son said she do ing okay but wants to know should she come see or just take her Emerge ncy Room/) 02/04/2023 Follow-Up MD Kulwant Power, Adenoid cystic 10:40 AM Linsey Esposito MD carcinoma of CDT Thoracic Medicine nasopharynx, NOS [address] [place] [address] 02/04/2023 Clinical Support Winter Shaw of nasopharynx (Primary Dx); 9:45 AM Linsey Rubalcava MD Adenoid cystic carcinoma of nasopharynx, NOS CDT Radiation Oncology [address] [address] 02/04/2023 Travel 02/03/2023 Infusion MD Kulwant Power, Adenoid cystic 11:00 AM Linsey Esposito MD carcinoma of CDT Infusion nasopharynx, NOS [facility] (Primary D x) [place] [address] 02/03/2023 Orders Only Lorena Jamesague Karyn Garza APRN [address] [place] [address] 02/03/2023 Travel 02/02/2023 Travel 01/31/2023 Refill Internal Medicine Rohan, Type 2 juliet [facility] Glenda J, mellitus with [address] BRIDGE TENDER hyperglycemia Blvd (Primary Dx) Main Bldg, 9th [place] [address] 01/28/2023 Telephone Felisa Page, RN Radiation Oncology [address] [address] 01/28/2023 Orders Only Lorena Jamesgh, BRIDGE TENDER [address] [place] [address] 01/26/2023 Hospital Encounter MAIN P09B Rachid, Chronic pain (Primary Dx); 4:06 PM Jasmyne Michelle Roberto MD Swallowing painful; CDT - Tracie Patel, Abdominal pain, epigastric; 02/01/2023 [place] [address] MD Jad Rectal hemorrhage; 6:28 PM [phone] Amanda Proctor, Mucositis due to antineoplastic therapy; [...] 01/26/2023 Telephone Felisa Page, RN Radiation Oncology [address] [place] [address] 01/26/2023 Telephone Felisa Page, JCARLOS Radiation Oncology [address] [place] [address] 01/25/2023 Nutrition Clinical Kenya Agarwal 11:30 AM Mendez Smith MD CDT For your Lian Jaramillo, RD appointment location directions please call: 01/25/2023 Hospital Encounter Kenya King Discharge 6:00 AM Treatment Center MD Sarah Disposition: Home CDT - Brian Martinez 01/25/2023 Blvd 11:59 PM Main Bldg CDT [place] [address] 01/25/2023 Telephone Felisa Page, JCARLOS Radiation Oncology [address] [place] [address] 01/22/2023 Nutrition Clinical Kenya Agarwal 10:30 AM Mendez Smith MD CDT For your Lian Jaramillo Mendez Benjamin, RD appointment location directions please call: 01/22/2023 Travel 01/21/2023 Infusion Lorena James Adenoid cysti c 8:45 AM Ambrose Suzie Garza, BRIDGE TENDER carcinoma of CDT Infusion nasopharynx, NOS [facility] (Primary D x) [facility] 4th [place] [address] 01/21/2023 Follow-Up MD Kulwant Power, Adenoid cystic 8:00 AM Ambrose Suzie Esposito MD carcinoma of CDT Thoracic Medicine nasopharynx, NOS [facility] (Primary D x) [place] [address] 01/21/2023 Travel 01/20/2023 Consult MD Kulwant Kramer, international relations professor curr ent use of opiate analgesic (Primary Dx); 11:20 AM Ambrose Suzie Beatty, Adenocarcinom a of nasopharynx; CDT Pain Medicine Ulcerative oral mucositis du e to antineoplastic therapy; [facility] [facility] Neoplasm r elated pain (acute) (chronic) [place] [address] 01/20/2023 Documentation Pain [facility] 15[address] [facility] Main Bldg, 4th [place] [address] 01/20/2023 Travel 01/19/2023 Clinical Support Winter Shaw 3:30 PM Linsey Rubalcava MD CDT Radiation Oncology [address] [place] [address] 1st [place] [address] 01/19/2023 Travel 01/14/2023 Orders Only Head and Neck Gorman, Dysphagia, Center - Speech Mukund oropharyngea l phase Pathology Helen, (Primary Dx) 1514 [facility] Blvd Main Bldg, 10th [place] [address] 01/12/2023 Refill Internal Medicine Karen Ordaz, [facility] [address] Main Bldg, 9th [place] [address] 01/11/2023 Hospital Encounter MAIN 22SW Regulo, Headache, not otherwise spec ified (Primary Dx); 7:31 PM [address] Ardon MD Dehydration; CDT - Overgaardhina Lean, Mucositis; 01/18/2023 [place] [id number] MD RobertoC arlos Type 2 diabetes mellitus without complic ation; 7:34 PM [phone] Chung Soria Current use of insulin; CDT [...] of glucocorticoids and synthetic analogues, subsequent encounter; MCC curre nt use of systemic steroid; Hyperlipidemia, not otherwise specified; Gastroesophagea l reflux disease; Essential hyper tension; Mucositis (ulce rative) due to antineoplastic therapy; Neoplasm relate d pain (acute) (chronic); Hypertension; 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; Insulin resista nce Discharge Dispo sition: Home with Home-Health or Physical Therapy 01/11/2023 Travel 01/11/2023 Telephone Felisa Page Ambrose Suzie Costa RN Radiation Oncology [address] [place] [address] 1[address] [place] [address] 01/08/2023 Nutrition Clinical Kenya Agarwal 10:00 AM Mendez Smith MD MUD JACK OPERATOR For your Lian Jaramillo RD appointment location directions please call: 01/08/2023 Travel 01/07/2023 Infusion Lorena James 9:00 AM Ambrose Suzie Garza APRN carcinoma of MUD JACK OPERATOR Infusion nasopharynx, NOS [facility] [facility] (Primary D x) [place] [address] 01/07/2023 Follow-Up Lorena Jamesid cysti c 8:40 AM [facility], BRIDGE TENDER carcinoma of MUD JACK OPERATOR [address] [place] [address] nasopharyn x, NOS [facility] (Primary Dx) [place] [address] 01/07/2023 Travel 01/06/2023 Infusion Lorena Jamesid cysti c 11:00 AM [facility], BRIDGE TENDER carcinoma of MUD JACK OPERATOR Infusion nasopharynx, NOS [address] [place] [address] (Primary D x) [address] [place] [address] 01/06/2023 Travel 01/05/2023 Travel 01/04/2023 Clinical Support MD Kulwant Luu, Winter Medel yanely of 2:00 PM Ambrose Suzie Rubalcava MD nasopharynx (P rimary MUD JACK OPERATOR Radiation Dx) Oncology [address] [place] [address] 01/04/2023 Infusion Lorena James Adenoid cysti c 10:45 AM [facility], BRIDGE TENDER carcinoma of MUD JACK OPERATOR Infusion nasopharynx, NOS [address] [place] [address] (Primary D x) [address] [address] 01/04/2023 Travel 01/01/2023 Infusion Lorena James Adenoid cysti c 9:00 AM [facility], BRIDGE TENDER carcinoma of MUD JACK OPERATOR Infusion nasopharynx, NOS [address] [place] [address] (Primary D x) [address] [address] 01/01/2023 Follow-Up MD Kulwant Power, Adenoid cystic carcinoma of nasopharynx, NOS (Primary Dx); 8:40 AM Linsey Esposito MD Neoplasm relat ed pain (acute) (chronic) MUD JACK OPERATOR Thoracic Medicine [address] [place] [address], [place] [address] 01/01/2023 Refill MD Kulwant Guardado, Neoplasm relate d pain Amb[facility] - Brittni Benjamin RN (acute) (chron ic) Pain Medicine [address] [place] [address] 01/01/2023 Travel 12/31/2022 Telephone MD Kulwant Kwon, Pain med reques t and Ambrose - tom Cisneros - jolynn lund Thoracic Medicine RN treatment 0 [place] [address] 12/31/2022 Orders Only Lorena James Adenoid cysti c Ambrose Kayla, BRIDGE TENDER carcinoma of [address] [place] [address] nasopharyn x, NOS South (Primary Dx) [place] [address] 12/30/2022 Hospital Encounter Pain Management Miguel Gordon er associated pain (Primary Dx); 9:33 AM Kandice Fernandez MD Headache, not otherwise spec ified MUD JACK OPERATOR - [address] Discharge Disp osition: Home 12/30/2022 Blvd 11:59 PM Main Bldg, 4th MUD JACK OPERATOR [place] [address] 12/30/2022 Travel 12/29/2022 Hospital Encounter Main Flex Center Alcides, Adenocarcinoma of nasopharyn x; 8:00 AM 151Saurav Palacios MD Sixth (abducen t) nerve palsy, left eye; MUD JACK OPERATOR - Blvd Diplopia; 12/29/2022 Main Bldg, 7th Corneal anest hesia <Left side>; 11:59 PM Floor Disorder of trigeminal nerve , not otherwise specified MUD JACK OPERATOR Elevator C Discharge Disposition: [place] [address] 12/29/2022 Travel 12/28/2022 Clinical Support Winter Shaw 2:00 PM Linsey Jimenez - MD Gini MUD JACK OPERATOR Radiation Oncology [address] [place] [address] 1[address] [place] [address] 12/28/2022 Nutrition Clinical Kenya Agarwal 10:00 AM Mendez Smith MD MUD JACK OPERATOR For your Lian Jaramillo, RD appointment location directions please call: 12/28/2022 Travel 12/25/2022 Travel 12/24/2022 Infusion Lorena James cysti c 8:45 AM Ambrosemurphy Garza, BORIS carcinoma of MUD JACK OPERATOR Infusion nasopharynx, NOS [facility] [facility] (Primary D x) [facility] 4th [place] [address] 12/24/2022 Follow-Up MD Kulwant Power, Adenoid cystic 8:20 AM Linsey Esposito MD carcinoma of MUD JACK OPERATOR Thoracic Medicine nasopharynx, NOS [address] [place] [address] 12/24/2022 Telephone Felisa Page Ambrose - M, RN Radiation Oncology [address] [place] [address] 1[address] [place] [address] 12/24/2022 Telephone Kenya Ivory Ambrose Suzie Smith MD Head & Neck Surgery [address] [place] [address] 12/24/2022 Telephone MD Kulwant Kwon Ambrose Szuie Mayorga Thoracic Medicine RN [address] [place] [address] 12/24/2022 Telephone MD Kulwant Kwon [place] [address] [place] [address] 12/24/2022 Telephone MD Kulwant Power, Medication Prob augusta Ambrose Suzie Esposito MD Infusion [address] [place] [address] 12/24/2022 Travel 12/24/2022 Orders Only MD Kulwant Power Ambrosemurphy Esposito MD Thoracic Medicine [address] [place] [address] 12/23/2022 Clinical Support [facility], Winter Suspected COVID-19 (Primary Dx); 10:15 AM [place] - Isabel Rubalcava MD Adenocarcinoma of nasopharynx MUD JACK OPERATOR Clinic Lj, [address] Napoles [place] [facility], 8th Floor Elevator T [place] [address] 12/23/2022 Hospital Encounter Oral Oncology Homiya, Adenoid cystic carcinoma of nasopharynx, NOS 9:30 AM Brian Bingham DDS Discharge Disp osition: Home MUD JACK OPERATOR - Blvd 12/23/2022 Main Bldg, 11:59 PM Floor MUD JACK [place] [address] 12/23/2022 Documentation Radiation [facility] Treatment [place] MD Jasmyne Rubalcava[address] [facility] [facility] Main Bldg [place] [address] 12/23/2022 Telephone MD Kulwant Power, Results (Test n ote ) Ambrose - MD Vaib[facility] [address] [place] [address] 12/23/2022 Telephone MD Kulwant Kwon, Results (Test Ambrose - Tita Mayorga, note-per Pippa pierce Radiation RN request) Oncology [address] [place] [address] 12/23/2022 Travel 12/23/2022 Orders Only Lorena James Adenoid cysti c Ambrose Kayla, BRIDGE TENDER carcinoma of [address] [place] [address] nasopharyn x, NOS [facility] (Primary Dx) [place] [address] 12/18/2022 Orders Only Lindy Flynn Ambrose BALJINDER Todd Radiation Oncology [address] [place] [address] 12/18/2022 Orders Only Lindy Flynn Adenocarcinom a of Ambrose BALJINDER Todd nasopharynx Radiation Oncology [address] [address] 12/17/2022 Clinical Support Kenya Ivory 8:00 AM Linsey Smith MD MUD JACK OPERATOR Radiation [place], Oncology Maria Luz Lund, RN [address] [address] 12/17/2022 Documentation Radiation [facility] Treatment [place] MD Gini [address] Main Bldg [place] [address] 12/17/2022 Documentation Radiation Jus Winter Treatment [place] MD Gini [address] Main Bldg [place] [address] 12/17/2022 Documentation Radiation Winter Luu Treatment [place] MD Gini [address] Main Bldg [place] [address] 12/17/2022 Orders Only Lorena James Adenoid cysti c Ambrose Kayla, BRIDGE TENDER carcinoma of [address] [place] [address] nasopharyn x, NOS South (Primary Dx) [place] [address] 12/17/2022 Travel 12/17/2022 Orders Only Winter Shaw Ambrose Suzie Rubalcava MD Radiation Oncology [address] [address] 12/16/2022 Orders Only Winter Shaw 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 (P rimary Radiation Dx) Oncology [address] [address] 12/16/2022 Telephone Felisa Page Ambrose Suzie Costa, RN Radiation Oncology [address] [address] 12/16/2022 Telephone Endocrine Center Rosmery Dickinson, [address] Main Bldg, 6th [place] [address] 12/15/2022 Hospital Encounter Oral Oncology Kenya Agarwal Encounter for observation fo r other suspected disease ruled out 8:42 AM Brian Smith MD Discharge Disp osition: Home MUD JACK OPERATOR - Blvd 12/15/2022 Main Bldg, 9 11:59 PM Floor MUD JACK [place] [address] 12/15/2022 Refill Lindy Flynn a of Ambrose - BALJINDER Sotelo nasopharynx Radiation Oncology [address] [place] [address] 12/15/2022 Orders Only Pain Management Williams, Neoplasm re lated pain Center [facility], (acute) (chronic) [address] (Primary Dx) vd Main Bldg, 4th [place] [address] 12/15/2022 Orders Only Pain Management Williams, [facility], [address] Main Bldg, 4th [place] [address] 12/15/2022 Orders Only Head and Neck [facility] (abducen t) [place] - [facility], OD nerve palsy, le ft eye Ophthalmology (Primary Dx) [address] [facility] Main Bldg, 9th [place] [address] 12/15/2022 Ophth Exam Head and Neck [facility], OD Ophthalmology [address] [facility] Main Bldg, 9th [place] [address] 12/14/2022 Orders Only Oral Oncology Martínez, Encounter for [address] Hdz MD observation fo r other Blvd suspected disease Main Bldg, 9th ruled out (Pr imary Floor Dx) [place] [address] 12/11/2022 Telephone Oral Oncology Triston Gomez [address] Main Bldg, 9th [place] [address] 12/10/2022 Travel 12/10/2022 Orders Only Oral Oncology Martínez, Encounter for [address] Hdz MD observation fo r other Blvd suspected disease Main Bldg, 9th ruled out (Pr imary Floor Dx) [place] [address] 12/09/2022 Hospital Encounter MAIN [id number] Mer Milian Type 2 diabetes mellitus wit hout complication (Primary Dx); 9:01 PM Brian Peñaloza MD Adenoid cystic carcinoma of nasopharynx, NOS; MUD JACK OPERATOR - Overgaard Nico, Headache; 12/15/2022 [place] [address] MD Roberto Carlos Blurring of visual image; 7:30 PM [phone] Regulo, Adenocarcinoma of nasopharynx; MUD JACK OPERATOR MD Reva Encounter for observation for other susp ected disease ruled out; Abiodun Adorno, Headache, not otherwise specified; Diplopia; Karissa, Hypertension; Rudy, Gastroesophage al reflux disease MD Discharge Disposition: Home Travis Lopez MD Brito-Dellan, Norman, MD Leung, Cerena, MD 12/08/2022 Telephone Lindy Flynn Ambrose BALJINDER Todd Radiation Oncology [address] [place] [address] 12/08/2022 Orders Only Lorena James Adenoid cysti c [facility], BRIDGE TENDER carcinoma of [address] [place] [address] nasopharyn x, NOS South (Primary Dx) [place] [address] 12/05/2022 Telephone Winter Shaw Ambrose Suzie Rubalcava MD Radiation Oncology [address] [place] [address] 12/05/2022 Orders Only Winter Shaw 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 (P rimary Radiation Dx) Oncology [address] [place] [address] 12/04/2022 Hospital Encounter TAO Benitez, Discharg e 10:55 AM MEGAN Castro Disposition: [facility] BRADNAN Choe MD 12/04/2022 Lorena Hdez 11:59 PM BORIS Garza CST 12/04/2022 Telephone Linsey Turner, Head & Neck BRIDGE TENDER Surgery [address] [place] [address] 12/04/2022 Multidisciplinary Visit Linsey Turner, Head & Neck BRIDGE TENDER Surgery [address] [place] [address] 12/04/2022 Telephone MD Kulwant Cochran Ambrose - Maria Luz Lund, RN Radiation Oncology [address] [address] 12/02/2022 Orders Only Lindy Flynn Adenocarcinom a of [place] - BALJINDER Sotelo nasopharynx (P rimary Radiation Dx) Oncology [address] [address] 12/02/2022 Orders Only Winter Shaw 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 (P rimary Radiation Dx) Oncology [address] [address] 11/30/2022 Ancillary Procedure [facility] MRI Lorena Hdez Adenocarcinoma of 8:15 AM [address] Garza APRN nasopharynx MUD JACK OPERATOR [facility], 4th [place] [address] 11/30/2022 Travel 11/27/2022 Ancillary Procedure Lindy Flynn Adenoc arcinoma of nasopharynx; 12:00 PM AmbroseBALJINDER Su Malignant neoplasm of overla pping sites of nasopharynx MUD JACK OPERATOR [address] [address] 11/27/2022 Travel 11/26/2022 Consult MD Kulwant Power, Adenocarcinoma of 11:00 AM Linsey Esposito MD nasopharynx MUD JACK OPERATOR Thoracic Medicine [address] [place] [address] 11/26/2022 Consult Winter Shaw Adenocarcinoma of nasopharynx; 10:00 AM Linsey Rubalcava MD Malignant neop lasm of overlapping sites of nasopharynx MUD JACK OPERATOR Radiation Oncology [address] [address] 11/26/2022 Travel 11/24/2022 Lab Requisition [facility] AP David Nunez GMD Disposition: Home Alexa Alvarez MD 11/23/2022 Telephone Ofe [place] T, RN [address] [place] [address] 11/22/2022 Orders Only Oral Oncology Berkley Aguayo, Encounter for [address] observation fo r other Blvd suspected condition Main Bldg, 9th ruled out (Pr imary Floor Dx) [place] [address] 11/20/2022 Telephone Elana Dupree Ambrose RN [address] [place] [address] 11/17/2022 Office Visit Kenya Ivory Adenocarcinoma of 9:15 AM Linsey Smith MD nasopharynx MUD JACK OPERATOR Head & Neck Surgery [address] [place] [address] 11/17/2022 NPR MDA PATIENT Kenya Agarwal 8:45 AM TAMERA Smith MD MUD JACK OPERATOR 11/17/2022 Travel 11/16/2022 Orders Only MD Kulwant Berman, Adenocarcinoma of Ambrose - Red Costa, nasopharynx (P rimary Head & Neck BRIDGE TENDER Dx) Surgery [address] [place] [address] 11/12/2022 Orders Only MD Kulwant Honeycutt Ambrose - BALJINDER Branch Head & Neck Surgery [address] [place] [address] 11/12/2022 Orders Only Head and Neck Antonella, Adenocarcinoma of nasopharynx (Primary Dx); Center - Surgical Red Costa, 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 Oncology BRIDGE TENDER [address] [facility] Main Bldg, 10th Floor, [place] [address] after 09/26/2022 Surgical History Surgery Date Site/Laterality Comments APPENDECTOMY [id number] COLONOSCOPY [id number] CHOLECYSTECTOMY [id number] KNEE ARTHROPLASTY Right SHOULDER SURGERY 050@2010 Left UPPER GASTROINTESTINAL ENDOSCOPY [id number] SECTION, CLASSIC 11/01/1984 - 10/31/1985 PARTIAL HYSTERECTOMY 03/01/2012 - 03/31/2012 MYRINGOTOMY WITH ASPIRATION AND 11/01/2019 - 10/31/2020 INSERTION PE TUBES SLEEVE GASTROPLASTY N/A Medical History Medical History Date Comments Hypertension [id number] Hyperlipidemia [id number] Allergic rhinitis [id number] Fatty liver [id number] Gastric reflux [id number] Gastric ulcer 78538193 Crohn's disease [id number] Gout [id number] Type 2 diabetes mellitus with 8241926 hyperglycemia Anxiety 06217446 Chronic obstructive pulmonary disease On home supplemental [...] Sex Assigned at Female 11/12/2022 2:07 PM MUD JACK OPERATOR Gender Identity Female 11/12/2022 2:07 PM C [...] (320 lb 5.3 oz) 09/13/2023 10:01 AM MUD JACK OPERATOR Height 155 cm (5' 1.02") 09/13/2023 10:01 AM MUD JACK OPERATOR Body Mass Index 60.48 09/13/2023 10:01 AM MUD JACK OPERATOR Plan of Treatment Date Type Department Care Team Description 10/12/2023 10:45 Follow-Up MD Kulwant [place] Chelly Agarwal MD AM MUD JACK OPERATOR - Head & Neck Surger y [address] [place] [address] [place] [address] [phone] 10/27/2023 9:00 Lab MD Blum Ambrose Kylie Andrade i AM MUD JACK OPERATOR - Diagnostic Laboratory [facility] [address] [place] [address] 1st [place] [address] [phone] 11/03/2023 1:30 Telemedicine Endocrine Center Marily Garcia, PM MUD JACK OPERATOR [address] BRIDGE TENDER Main Bldg, 6th Floor [address] [place] [address] [place] [address] [phone] Health Maintenance Due Date Last Done Comments COVID-19 Vaccination (07/02/2023 07/11/2021, , season) 12/03/2020 Medical Devices Implanted Type Area Executive Sous Chef Device Shelf Model / Identifier Expiration Serial / Date Lot Gastric Sleeve Sleeve Midline: Stomach Procedures Procedure Name Priority Date/Time Associated Comments Diagnosis MRI ORBITS W WO CONTRAST Routine 09/13/2023 Adenoid cystic R esults for 11:51 AM MUD JACK OPERATOR carcinoma of this procedure nasopharynx, NOS are in the results section. CORTISOL, TOTAL Routine 09/13/2023 Adenoid cystic Results fo r 9:29 AM MUD JACK OPERATOR carcinoma of this procedure nasopharynx, NOS are in the results section. ADRENOCORTICOTROPIC Routine 09/13/2023 Adenoid cystic Result s for HORMONE 9:29 AM MUD JACK OPERATOR carcinoma of this procedure nasopharynx, NOS are in the results section. ESTRADIOL LEVEL Routine 09/13/2023 Adenoid cystic Results fo r 9:29 AM MUD JACK OPERATOR carcinoma of this procedure nasopharynx, NOS are in the results section. FOLLICLE STIMULATING Routine 09/13/2023 Adenoid cystic Resul ts for HORMONE LEVEL 9:29 AM MUD JACK OPERATOR carcinoma of this procedure nasopharynx, NOS are in the results section. LUTEINIZING HORMONE Routine 09/13/2023 Adenoid cystic Result s for 9:29 AM MUD JACK OPERATOR carcinoma of this procedure nasopharynx, NOS are in the results section. THYROID STIMULATING Routine 09/13/2023 Adenoid cystic Result s for HORMONE 9:29 AM MUD JACK OPERATOR carcinoma of this procedure nasopharynx, NOS are in the results section. TRIIODOTHYRONINE Routine 09/13/2023 Adenoid cystic Results f or 9:29 AM MUD JACK OPERATOR carcinoma of this procedure nasopharynx, NOS are in the results section. FREE THYROXINE Routine 09/13/2023 Adenoid cystic Results for 9:29 AM MUD JACK OPERATOR carcinoma of this procedure nasopharynx, NOS are in the results section. INSULIN-LIKE GROWTH FACTOR Routine 09/13/2023 Adenoid cystic Results for 1 9:29 AM MUD JACK OPERATOR carcinoma of this procedure nasopharynx, NOS are in the results section. PROLACTIN Routine 09/13/2023 Adenoid cystic Results for 9:29 AM MUD JACK OPERATOR carcinoma of this procedure nasopharynx, NOS [...] the results section. CONTROLLED SUBSTANCE Routine 01/20/2023 [facility] current Re sults for MONITORING PANEL, URINE [...] 01/07/2023 Adenoid cystic Results for 8:28 AM MUD JACK OPERATOR carcinoma of this procedure nasopharynx, NOS are in the results section. .CBC Routine 01/07/2023 Adenoid cystic Results for 8:28 AM MUD JACK OPERATOR carcinoma of this procedure nasopharynx, NOS are in the results section. FRACTIONATED BILIRUBIN Routine 01/07/2023 Adenoid cystic Res ults for 8:28 AM MUD JACK OPERATOR carcinoma of this procedure nasopharynx, NOS are in the results section. TOTAL PROTEIN Routine 01/07/2023 Adenoid cystic Results for 8:28 AM MUD JACK OPERATOR carcinoma of this procedure nasopharynx, NOS are in the results section. ASPARTATE AMINOTRANSFERASE Routine 01/07/2023 Adenoid cystic Results for 8:28 AM MUD JACK OPERATOR carcinoma of this procedure nasopharynx, NOS are in the results section. ALANINE AMINOTRANSFERASE Routine 01/07/2023 Adenoid cystic R esults for 8:28 AM MUD JACK OPERATOR carcinoma of this procedure nasopharynx, NOS are in the results section. ALKALINE PHOSPHATASE Routine 01/07/2023 Adenoid cystic Resul ts for 8:28 AM MUD JACK OPERATOR carcinoma of this procedure nasopharynx, NOS are in the results section. ALBUMIN LEVEL Routine 01/07/2023 Adenoid cystic Results for 8:28 AM MUD JACK OPERATOR carcinoma of this procedure nasopharynx, NOS are in the results section. CALCIUM LEVEL Routine 01/07/2023 Adenoid cystic Results for 8:28 AM MUD JACK OPERATOR carcinoma of this procedure nasopharynx, NOS are in the results section. .GLOMERULAR FILTRATION Routine 01/07/2023 Adenoid cystic Res ults for RATE 8:28 AM MUD JACK OPERATOR carcinoma of this procedure nasopharynx, NOS are in the results section. SERUM CREATININE Routine 01/07/2023 Adenoid cystic Results f or 8:28 AM MUD JACK OPERATOR carcinoma of this procedure nasopharynx, NOS are in the results section. ELECTROLYTE PANEL Routine 01/07/2023 Adenoid cystic Results for 8:28 AM MUD JACK OPERATOR carcinoma of this procedure nasopharynx, NOS are in the results section. BLOOD UREA NITROGEN Routine 01/07/2023 Adenoid cystic Result s for 8:28 AM MUD JACK OPERATOR carcinoma of this procedure nasopharynx, NOS are in the results section. GLUCOSE LEVEL Routine 01/07/2023 Adenoid cystic Results for 8:28 AM MUD JACK OPERATOR carcinoma of this procedure nasopharynx, NOS are in the results section. PHOSPHORUS LEVEL Routine 01/07/2023 Adenoid cystic Results f or 8:28 AM MUD JACK OPERATOR carcinoma of this procedure nasopharynx, NOS are in the results section. MAGNESIUM LEVEL Routine 01/07/2023 Adenoid cystic Results fo r 8:28 AM MUD JACK OPERATOR carcinoma of this procedure nasopharynx, NOS are in the results section. COMPLETE BLOOD COUNT W/ Routine 01/07/2023 Adenoid cystic DIFFERENTIAL 8:28 AM MUD JACK OPERATOR carcinoma of nasopharynx, NOS COMPREHENSIVE METABOLIC Routine 01/07/2023 Adenoid cystic PANEL 8:28 AM MUD JACK OPERATOR carcinoma of nasopharynx, NOS DIFFERENTIAL Routine 01/01/2023 Adenoid cystic Results for 8:26 AM MUD JACK OPERATOR carcinoma of this procedure nasopharynx, NOS are in the results section. .CBC Routine 01/01/2023 Adenoid cystic Results for 8:26 AM MUD JACK OPERATOR carcinoma of this procedure nasopharynx, NOS are in the results section. FRACTIONATED BILIRUBIN Routine 01/01/2023 Adenoid cystic Res ults for 8:26 AM MUD JACK OPERATOR carcinoma of this procedure nasopharynx, NOS are in the results section. TOTAL PROTEIN Routine 01/01/2023 Adenoid cystic Results for 8:26 AM MUD JACK OPERATOR carcinoma of this procedure nasopharynx, NOS are in the results section. ASPARTATE AMINOTRANSFERASE Routine 01/01/2023 Adenoid cystic Results for 8:26 AM MUD JACK OPERATOR carcinoma of this procedure nasopharynx, NOS are in the results section. ALANINE AMINOTRANSFERASE Routine 01/01/2023 Adenoid cystic R esults for 8:26 AM MUD JACK OPERATOR carcinoma of this procedure nasopharynx, NOS are in the results section. ALKALINE PHOSPHATASE Routine 01/01/2023 Adenoid cystic Resul ts for 8:26 AM MUD JACK OPERATOR carcinoma of this procedure nasopharynx, NOS are in the results section. ALBUMIN LEVEL Routine 01/01/2023 Adenoid cystic Results for 8:26 AM MUD JACK OPERATOR carcinoma of this procedure nasopharynx, NOS are in the results section. CALCIUM LEVEL Routine 01/01/2023 Adenoid cystic Results for 8:26 AM MUD JACK OPERATOR carcinoma of this procedure nasopharynx, NOS are in the results section. .GLOMERULAR FILTRATION Routine 01/01/2023 Adenoid cystic Res ults for RATE 8:26 AM MUD JACK OPERATOR carcinoma of this procedure nasopharynx, NOS are in the results section. SERUM CREATININE Routine 01/01/2023 Adenoid cystic Results f or 8:26 AM MUD JACK OPERATOR carcinoma of this procedure nasopharynx, NOS are in the results section. ELECTROLYTE PANEL Routine 01/01/2023 Adenoid cystic Results for 8:26 AM MUD JACK OPERATOR carcinoma of this procedure nasopharynx, NOS are in the results section. BLOOD UREA NITROGEN Routine 01/01/2023 Adenoid cystic Result s for 8:26 AM MUD JACK OPERATOR carcinoma of this procedure nasopharynx, NOS are in the results section. GLUCOSE LEVEL Routine 01/01/2023 Adenoid cystic Results for 8:26 AM MUD JACK OPERATOR carcinoma of this procedure nasopharynx, NOS are in the results section. PHOSPHORUS LEVEL Routine 01/01/2023 Adenoid cystic Results f or 8:26 AM MUD JACK OPERATOR carcinoma of this procedure nasopharynx, NOS are in the results section. MAGNESIUM LEVEL Routine 01/01/2023 Adenoid cystic Results fo r 8:26 AM MUD JACK OPERATOR carcinoma of this procedure nasopharynx, NOS are in the results section. COMPLETE BLOOD COUNT W/ Routine 01/01/2023 Adenoid cystic DIFFERENTIAL 8:26 AM MUD JACK OPERATOR carcinoma of nasopharynx, NOS COMPREHENSIVE METABOLIC Routine 01/01/2023 Adenoid cystic PANEL 8:26 AM MUD JACK OPERATOR carcinoma of nasopharynx, NOS [place] [employer], Routine 12/29/2022 Sixth (abducent) R esults for INTERMEDIATE - OU - BOTH 10:51 AM MUD JACK OPERATOR nerve palsy, lef t this procedure EYES eye are in the results section. OCT, OPTIC NERVE - OU - Routine 12/29/2022 Sixth (abducent) Results for BOTH EYES 10:43 AM MUD JACK OPERATOR nerve palsy, left this proce dure eye are in the results section. OCT, RETINA - OU - BOTH Routine 12/29/2022 Sixth (abducent) Results for EYES 10:43 AM MUD JACK OPERATOR nerve palsy, left this proce dure eye are in the results section. DIFFERENTIAL Routine 12/24/2022 Adenoid cystic Results for 9:16 AM MUD JACK OPERATOR carcinoma of this procedure nasopharynx, NOS are in the results section. .CBC Routine 12/24/2022 Adenoid cystic Results for 9:16 AM MUD JACK OPERATOR carcinoma of this procedure nasopharynx, NOS are in the results section. FRACTIONATED BILIRUBIN Routine 12/24/2022 Adenoid cystic Res ults for 9:16 AM MUD JACK OPERATOR carcinoma of this procedure nasopharynx, NOS are in the results section. TOTAL PROTEIN Routine 12/24/2022 Adenoid cystic Results for 9:16 AM MUD JACK OPERATOR carcinoma of this procedure nasopharynx, NOS are in the results section. ASPARTATE AMINOTRANSFERASE Routine 12/24/2022 Adenoid cystic Results for 9:16 AM MUD JACK OPERATOR carcinoma of this procedure nasopharynx, NOS are in the results section. ALANINE AMINOTRANSFERASE Routine 12/24/2022 Adenoid cystic R esults for 9:16 AM MUD JACK OPERATOR carcinoma of this procedure nasopharynx, NOS are in the results section. ALKALINE PHOSPHATASE Routine 12/24/2022 Adenoid cystic Resul ts for 9:16 AM MUD JACK OPERATOR carcinoma of this procedure nasopharynx, NOS are in the results section. ALBUMIN LEVEL Routine 12/24/2022 Adenoid cystic Results for 9:16 AM MUD JACK OPERATOR carcinoma of this procedure nasopharynx, NOS are in the results section. CALCIUM LEVEL Routine 12/24/2022 Adenoid cystic Results for 9:16 AM MUD JACK OPERATOR carcinoma of this procedure nasopharynx, NOS are in the results section. .GLOMERULAR FILTRATION Routine 12/24/2022 Adenoid cystic Res ults for RATE 9:16 AM MUD JACK OPERATOR carcinoma of this procedure nasopharynx, NOS are in the results section. SERUM CREATININE Routine 12/24/2022 Adenoid cystic Results f or 9:16 AM MUD JACK OPERATOR carcinoma of this procedure nasopharynx, NOS are in the results section. ELECTROLYTE PANEL Routine 12/24/2022 Adenoid cystic Results for 9:16 AM MUD JACK OPERATOR carcinoma of this procedure nasopharynx, NOS are in the results section. BLOOD UREA NITROGEN Routine 12/24/2022 Adenoid cystic Result s for 9:16 AM MUD JACK OPERATOR carcinoma of this procedure nasopharynx, NOS are in the results section. GLUCOSE LEVEL Routine 12/24/2022 Adenoid cystic Results for 9:16 AM MUD JACK OPERATOR carcinoma of this procedure nasopharynx, NOS are in the results section. PHOSPHORUS LEVEL Routine 12/24/2022 Adenoid cystic Results f or 9:16 AM MUD JACK OPERATOR carcinoma of this procedure nasopharynx, NOS are in the results section. MAGNESIUM LEVEL Routine 12/24/2022 Adenoid cystic Results fo r 9:16 AM MUD JACK OPERATOR carcinoma of this procedure nasopharynx, NOS are in the results section. COMPLETE BLOOD COUNT W/ Routine 12/24/2022 Adenoid cystic DIFFERENTIAL 9:16 AM MUD JACK OPERATOR carcinoma of nasopharynx, NOS COMPREHENSIVE METABOLIC Routine 12/24/2022 Adenoid cystic PANEL 9:16 AM MUD JACK OPERATOR carcinoma of nasopharynx, NOS COVID-19 (SARS-COV-2) PCR Routine 12/23/2022 Suspected COVID -19 Results for - ASYMPTOMATIC - MC 12:01 PM MUD JACK OPERATOR this pro cedure are in the results section. POC GLUCOSE SCREEN Routine 12/15/2022 Results f or 6:07 PM MUD JACK OPERATOR this procedure are in the results section. POC GLUCOSE SCREEN Routine 12/15/2022 Results f or 12:52 PM MUD JACK OPERATOR this procedure are in the results section. OCT, OPTIC NERVE - OU - Routine 12/15/2022 Diplopia Resu lts for BOTH EYES 10:37 AM MUD JACK OPERATOR this procedure are in the results section. OCT, RETINA - OU - BOTH Routine 12/15/2022 Diplopia Resu lts for EYES 10:37 AM MUD JACK OPERATOR this procedure are in the results section. FUNDUS PHOTOS - OU - BOTH Routine 12/15/2022 Diplopia Re sults for EYES 10:37 AM MUD JACK OPERATOR this procedure are in the results section. 3D DENTAL IMAGING (ICAT) Routine 12/15/2022 Encounter for Re sults for 8:42 AM MUD JACK OPERATOR observation for this procedu re other suspected are in the disease ruled out results section. POC GLUCOSE SCREEN Routine 12/15/2022 Results f or 7:19 AM MUD JACK OPERATOR this procedure are in the results section. POC GLUCOSE SCREEN Routine 12/15/2022 Results f or 6:12 AM MUD JACK OPERATOR this procedure are in the results section. DIFFERENTIAL AM 12/15/2022 Results for 3:44 AM MUD JACK OPERATOR this procedure are in the results section. .CBC AM 12/15/2022 Results for 3:44 AM MUD JACK OPERATOR this procedure are in the results section. CALCIUM LEVEL AM 12/15/2022 Results for 3:44 AM MUD JACK OPERATOR this procedure are in the results section. .GLOMERULAR FILTRATION AM 12/15/2022 Resul ts for RATE 3:44 AM MUD JACK OPERATOR this procedure are in the results section. SERUM CREATININE AM 12/15/2022 Results for 3:44 AM MUD JACK OPERATOR this procedure are in the results section. ELECTROLYTE PANEL AM 12/15/2022 Results fo r 3:44 AM MUD JACK OPERATOR this procedure are in the results section. BLOOD UREA NITROGEN AM 12/15/2022 Results for 3:44 AM MUD JACK OPERATOR this procedure are in the results section. GLUCOSE LEVEL AM 12/15/2022 Results for 3:44 AM MUD JACK OPERATOR this procedure are in the results section. COMPLETE BLOOD COUNT W/ AM 12/15/2022 DIFFERENTIAL 3:44 AM MUD JACK OPERATOR PHOSPHORUS LEVEL AM 12/15/2022 Results for 3:44 AM MUD JACK OPERATOR this procedure are in the results section. MAGNESIUM LEVEL AM 12/15/2022 Results for 3:44 AM MUD JACK OPERATOR this procedure are in the results section. BASIC METABOLIC PANEL, AM 12/15/2022 CALCIUM TOTAL 3:44 AM MUD JACK OPERATOR POC GLUCOSE SCREEN Routine 12/15/2022 Results f or 2:28 AM MUD JACK OPERATOR this procedure are in the results section. POC GLUCOSE SCREEN Routine 12/14/2022 Results f or 10:04 PM MUD JACK OPERATOR this procedure are in the results section. POC GLUCOSE SCREEN Routine 12/14/2022 Results f or 5:26 PM MUD JACK OPERATOR this procedure are in the results section. POC GLUCOSE SCREEN Routine 12/14/2022 Results f or 4:14 PM MUD JACK OPERATOR this procedure are in the results section. FL MODIFIED BARIUM SWALLOW Routine 12/14/2022 R esults for W SPEECH 2:37 PM MUD JACK OPERATOR this procedure are in the results section. POC GLUCOSE SCREEN Routine 12/14/2022 Results f or 12:08 PM MUD JACK OPERATOR this procedure are in the results section. GENERAL LABORATORY ADD ON Routine 12/14/2022 Re sults for TEST 8:03 AM MUD JACK OPERATOR this procedure are in the results section. POC GLUCOSE SCREEN Routine 12/14/2022 Results f or 7:25 AM MUD JACK OPERATOR this procedure are in the results section. POC GLUCOSE SCREEN Routine 12/14/2022 Results f or 5:55 AM MUD JACK OPERATOR this procedure are in the results section. FRACTIONATED BILIRUBIN AM 12/14/2022 Resul ts for 4:46 AM MUD JACK OPERATOR this procedure are in the results section. TOTAL PROTEIN AM 12/14/2022 Results for 4:46 AM MUD JACK OPERATOR this procedure are in the results section. ASPARTATE AMINOTRANSFERASE AM 12/14/2022 R esults for 4:46 AM MUD JACK OPERATOR this procedure are in the results section. ALANINE AMINOTRANSFERASE AM 12/14/2022 Res ults for 4:46 AM MUD JACK OPERATOR this procedure are in the results section. ALKALINE PHOSPHATASE AM 12/14/2022 Results for 4:46 AM MUD JACK OPERATOR this procedure are in the results section. ALBUMIN LEVEL AM 12/14/2022 Results for 4:46 AM MUD JACK OPERATOR this procedure are in the results section. DIFFERENTIAL AM 12/14/2022 Results for 4:46 AM MUD JACK OPERATOR this procedure are in the results section. .CBC AM 12/14/2022 Results for 4:46 AM MUD JACK OPERATOR this procedure are in the results section. CALCIUM LEVEL AM 12/14/2022 Results for 4:46 AM MUD JACK OPERATOR this procedure are in the results section. .GLOMERULAR FILTRATION AM 12/14/2022 Resul ts for RATE 4:46 AM MUD JACK OPERATOR this procedure are in the results section. SERUM CREATININE AM 12/14/2022 Results for 4:46 AM MUD JACK OPERATOR this procedure are in the results section. ELECTROLYTE PANEL AM 12/14/2022 Results fo r 4:46 AM MUD JACK OPERATOR this procedure are in the results section. BLOOD UREA NITROGEN AM 12/14/2022 Results for 4:46 AM MUD JACK OPERATOR this procedure are in the results section. GLUCOSE LEVEL AM 12/14/2022 Results for 4:46 AM MUD JACK OPERATOR this procedure are in the results section. COMPLETE BLOOD COUNT W/ AM 12/14/2022 DIFFERENTIAL 4:46 AM MUD JACK OPERATOR PHOSPHORUS LEVEL AM 12/14/2022 Results for 4:46 AM MUD JACK OPERATOR this procedure are in the results section. MAGNESIUM LEVEL AM 12/14/2022 Results for 4:46 AM MUD JACK OPERATOR this procedure are in the results section. BASIC METABOLIC PANEL, AM 12/14/2022 CALCIUM TOTAL 4:46 AM MUD JACK OPERATOR POC GLUCOSE SCREEN Routine 12/14/2022 Results f or 1:36 AM MUD JACK OPERATOR this procedure are in the results section. POC GLUCOSE SCREEN Routine 12/13/2022 Results f or 9:56 PM MUD JACK OPERATOR this procedure are in the results section. POC GLUCOSE SCREEN Routine 12/13/2022 Results f or 6:31 PM MUD JACK OPERATOR this procedure are in the results section. POC GLUCOSE SCREEN Routine 12/13/2022 Results f or 1:24 PM MUD JACK OPERATOR this procedure are in the results section. POC GLUCOSE SCREEN Routine 12/13/2022 Results f or 8:02 AM MUD JACK OPERATOR this procedure are in the results section. POC GLUCOSE SCREEN Routine 12/13/2022 Results f or 5:58 AM MUD JACK OPERATOR this procedure are in the results section. POC GLUCOSE SCREEN Routine 12/13/2022 Results f or 3:24 AM MUD JACK OPERATOR this procedure are in the results section. DIFFERENTIAL AM 12/13/2022 Results for 3:12 AM MUD JACK OPERATOR this procedure are in the results section. .CBC AM 12/13/2022 Results for 3:12 AM MUD JACK OPERATOR this procedure are in the results section. CALCIUM LEVEL AM 12/13/2022 Results for 3:12 AM MUD JACK OPERATOR this procedure are in the results section. .GLOMERULAR FILTRATION AM 12/13/2022 Resul ts for RATE 3:12 AM MUD JACK OPERATOR this procedure are in the results section. SERUM CREATININE AM 12/13/2022 Results for 3:12 AM MUD JACK OPERATOR this procedure are in the results section. ELECTROLYTE PANEL AM 12/13/2022 Results fo r 3:12 AM MUD JACK OPERATOR this procedure are in the results section. BLOOD UREA NITROGEN AM 12/13/2022 Results for 3:12 AM MUD JACK OPERATOR this procedure are in the results section. GLUCOSE LEVEL AM 12/13/2022 Results for 3:12 AM MUD JACK OPERATOR this procedure are in the results section. COMPLETE BLOOD COUNT W/ AM 12/13/2022 DIFFERENTIAL 3:12 AM MUD JACK OPERATOR PHOSPHORUS LEVEL AM 12/13/2022 Results for 3:12 AM MUD JACK OPERATOR this procedure are in the results section. MAGNESIUM LEVEL AM 12/13/2022 Results for 3:12 AM MUD JACK OPERATOR this procedure are in the results section. BASIC METABOLIC PANEL, AM 12/13/2022 CALCIUM TOTAL 3:12 AM MUD JACK OPERATOR POC GLUCOSE SCREEN Routine 12/12/2022 Results f or 9:43 PM MUD JACK OPERATOR this procedure are in the results section. POC GLUCOSE SCREEN Routine 12/12/2022 Results f or 6:16 PM MUD JACK OPERATOR this procedure are in the results section. POC GLUCOSE SCREEN Routine 12/12/2022 Results f or 12:52 PM MUD JACK OPERATOR this procedure are in the results section. POC GLUCOSE SCREEN Routine 12/12/2022 Results f or 7:47 AM MUD JACK OPERATOR this procedure are in the results section. POC GLUCOSE SCREEN Routine 12/12/2022 Results f or 5:52 AM MUD JACK OPERATOR this procedure are in the results section. DIFFERENTIAL AM 12/12/2022 Results for 4:30 AM MUD JACK OPERATOR this procedure are in the results section. .CBC AM 12/12/2022 Results for 4:30 AM MUD JACK OPERATOR this procedure are in the results section. CALCIUM LEVEL AM 12/12/2022 Results for 4:30 AM MUD JACK OPERATOR this procedure are in the results section. .GLOMERULAR FILTRATION AM 12/12/2022 Resul ts for RATE 4:30 AM MUD JACK OPERATOR this procedure are in the results section. SERUM CREATININE AM 12/12/2022 Results for 4:30 AM MUD JACK OPERATOR this procedure are in the results section. ELECTROLYTE PANEL AM 12/12/2022 Results fo r 4:30 AM MUD JACK OPERATOR this procedure are in the results section. BLOOD UREA NITROGEN AM 12/12/2022 Results for 4:30 AM MUD JACK OPERATOR this procedure are in the results section. GLUCOSE LEVEL AM 12/12/2022 Results for 4:30 AM MUD JACK OPERATOR this procedure are in the results section. COMPLETE BLOOD COUNT W/ AM 12/12/2022 DIFFERENTIAL 4:30 AM MUD JACK OPERATOR PHOSPHORUS LEVEL AM 12/12/2022 Results for 4:30 AM MUD JACK OPERATOR this procedure are in the results section. MAGNESIUM LEVEL AM 12/12/2022 Results for 4:30 AM MUD JACK OPERATOR this procedure are in the results section. BASIC METABOLIC PANEL, AM 12/12/2022 CALCIUM TOTAL 4:30 AM MUD JACK OPERATOR POC GLUCOSE SCREEN Routine 12/12/2022 Results f or 2:06 AM MUD JACK OPERATOR this procedure are in the results section. POC GLUCOSE SCREEN Routine 12/11/2022 Results f or 10:01 PM MUD JACK OPERATOR this procedure are in the results section. LACTIC ACID, VENOUS Timed Study 12/11/2022 Results for 9:50 PM MUD JACK OPERATOR this procedure are in the results section. LIPASE LEVEL STAT 12/11/2022 Results for 6:21 PM MUD JACK OPERATOR this procedure are in the results section. BLOOD GAS VENOUS STAT 12/11/2022 Results for 6:21 PM MUD JACK OPERATOR this procedure are in the results section. POC GLUCOSE SCREEN Routine 12/11/2022 Results f or 6:10 PM MUD JACK OPERATOR this procedure are in the results section. GENERAL LABORATORY ADD ON Routine 12/11/2022 Re sults for TEST 5:39 PM MUD JACK OPERATOR this procedure are in the results section. KETONE BODIES QUALITATIVE STAT 12/11/2022 Re sults for 5:19 PM MUD JACK OPERATOR this procedure are in the results section. POC GLUCOSE SCREEN Routine 12/11/2022 Results f or 4:51 PM MUD JACK OPERATOR this procedure are in the results section. LIPASE LEVEL STAT 12/11/2022 Results for 4:33 PM MUD JACK OPERATOR this procedure are in the results section. ELECTROLYTE PANEL STAT 12/11/2022 Results fo r 4:33 PM MUD JACK OPERATOR this procedure are in the results section. LACTIC ACID, VENOUS Timed Study 12/11/2022 Results for 4:33 PM MUD JACK OPERATOR this procedure are in the results section. POC GLUCOSE SCREEN Routine 12/11/2022 Results f or 3:34 PM MUD JACK OPERATOR this procedure are in the results section. POC CRITICAL Routine 12/11/2022 Results for 3:34 PM MUD JACK OPERATOR this procedure are in the results section. POC GLUCOSE SCREEN Routine 12/11/2022 Results f or 2:33 PM MUD JACK OPERATOR this procedure are in the results section. POC CRITICAL Routine 12/11/2022 Results for 2:33 PM MUD JACK OPERATOR this procedure are in the results section. POC GLUCOSE SCREEN Routine 12/11/2022 Results f or 12:35 PM MUD JACK OPERATOR this procedure are in the results section. POC GLUCOSE SCREEN Routine 12/11/2022 Results f or 8:14 AM MUD JACK OPERATOR this procedure are in the results section. LACTIC ACID, VENOUS Routine 12/11/2022 Results for 4:37 AM MUD JACK OPERATOR this procedure are in the results section. DIFFERENTIAL AM 12/11/2022 Results for 4:30 AM MUD JACK OPERATOR this procedure are in the results section. .CBC AM 12/11/2022 Results for 4:30 AM MUD JACK OPERATOR this procedure are in the results section. CALCIUM LEVEL AM 12/11/2022 Results for 4:30 AM MUD JACK OPERATOR this procedure are in the results section. .GLOMERULAR FILTRATION AM 12/11/2022 Resul ts for RATE 4:30 AM MUD JACK OPERATOR this procedure are in the results section. SERUM CREATININE AM 12/11/2022 Results for 4:30 AM MUD JACK OPERATOR this procedure are in the results section. ELECTROLYTE PANEL AM 12/11/2022 Results fo r 4:30 AM MUD JACK OPERATOR this procedure are in the results section. BLOOD UREA NITROGEN AM 12/11/2022 Results for 4:30 AM MUD JACK OPERATOR this procedure are in the results section. GLUCOSE LEVEL AM 12/11/2022 Results for 4:30 AM MUD JACK OPERATOR this procedure are in the results section. COMPLETE BLOOD COUNT W/ AM 12/11/2022 DIFFERENTIAL 4:30 AM MUD JACK OPERATOR PHOSPHORUS LEVEL AM 12/11/2022 Results for 4:30 AM MUD JACK OPERATOR this procedure are in the results section. MAGNESIUM LEVEL AM 12/11/2022 Results for 4:30 AM MUD JACK OPERATOR this procedure are in the results section. BASIC METABOLIC PANEL, AM 12/11/2022 CALCIUM TOTAL 4:30 AM MUD JACK OPERATOR POC GLUCOSE SCREEN Routine 12/11/2022 Results f or 1:20 AM MUD JACK OPERATOR this procedure are in the results section. POC GLUCOSE SCREEN Routine 12/10/2022 Results f or 10:00 PM MUD JACK OPERATOR this procedure are in the results section. POC GLUCOSE SCREEN Routine 12/10/2022 Results f or 6:29 PM MUD JACK OPERATOR this procedure are in the results section. POC GLUCOSE SCREEN Routine 12/10/2022 Results f or 5:20 PM MUD JACK OPERATOR this procedure are in the results section. CT HEAD WO CONTRAST STAT 12/10/2022 Results for 3:21 PM MUD JACK OPERATOR this procedure are in the results section. POC GLUCOSE SCREEN Routine 12/10/2022 Results f or 1:45 PM MUD JACK OPERATOR this procedure are in the results section. POC GLUCOSE SCREEN Routine 12/10/2022 Results f or 11:35 AM MUD JACK OPERATOR this procedure are in the results section. POC GLUCOSE SCREEN Routine 12/10/2022 Results f or 7:30 AM MUD JACK OPERATOR this procedure are in the results section. URINALYSIS WITH Routine 12/10/2022 Results for MICROSCOPIC IF INDICATED 6:13 AM MUD JACK OPERATOR thi s procedure are in the results section. URINE CULTURE Routine 12/10/2022 Results for 6:13 AM MUD JACK OPERATOR this procedure are in the results section. DIFFERENTIAL STAT 12/10/2022 Results for 5:13 AM MUD JACK OPERATOR this procedure are in the results section. .CBC STAT 12/10/2022 Results for 5:13 AM MUD JACK OPERATOR this procedure are in the results section. CALCIUM LEVEL AM 12/10/2022 Results for 5:13 AM MUD JACK OPERATOR this procedure are in the results section. .GLOMERULAR FILTRATION AM 12/10/2022 Resul ts for RATE 5:13 AM MUD JACK OPERATOR this procedure are in the results section. SERUM CREATININE AM 12/10/2022 Results for 5:13 AM MUD JACK OPERATOR this procedure are in the results section. ELECTROLYTE PANEL AM 12/10/2022 Results fo r 5:13 AM MUD JACK OPERATOR this procedure are in the results section. BLOOD UREA NITROGEN AM 12/10/2022 Results for 5:13 AM MUD JACK OPERATOR this procedure are in the results section. GLUCOSE LEVEL AM 12/10/2022 Results for 5:13 AM MUD JACK OPERATOR this procedure are in the results section. HEMOGLOBIN A1C Routine 12/10/2022 Results for 5:13 AM MUD JACK OPERATOR this procedure are in the results section. COMPLETE BLOOD COUNT W/ AM 12/10/2022 DIFFERENTIAL 5:13 AM MUD JACK OPERATOR PHOSPHORUS LEVEL AM 12/10/2022 Results for 5:13 AM MUD JACK OPERATOR this procedure are in the results section. MAGNESIUM LEVEL AM 12/10/2022 Results for 5:13 AM MUD JACK OPERATOR this procedure are in the results section. BASIC METABOLIC PANEL, AM 12/10/2022 CALCIUM TOTAL 5:13 AM MUD JACK OPERATOR POC GLUCOSE SCREEN Routine 12/10/2022 Results f or 1:38 AM MUD JACK OPERATOR this procedure are in the results section. POC GLUCOSE SCREEN Routine 12/09/2022 Results f or 11:18 PM MUD JACK OPERATOR this procedure are in the results section. POC VENOUS BLOOD GAS + Routine 12/09/2022 Resul ts for LACTATE 9:36 PM MUD JACK OPERATOR this procedure are in the results section. FRACTIONATED BILIRUBIN Routine 12/09/2022 Resul ts for 6:01 PM MUD JACK OPERATOR this procedure are in the results section. TOTAL PROTEIN Routine 12/09/2022 Results for 6:01 PM MUD JACK OPERATOR this procedure are in the results section. ASPARTATE AMINOTRANSFERASE Routine 12/09/2022 R esults for 6:01 PM MUD JACK OPERATOR this procedure are in the results section. ALANINE AMINOTRANSFERASE Routine 12/09/2022 Res ults for 6:01 PM MUD JACK OPERATOR this procedure are in the results section. ALKALINE PHOSPHATASE Routine 12/09/2022 Results for 6:01 PM MUD JACK OPERATOR this procedure are in the results section. ALBUMIN LEVEL Routine 12/09/2022 Results for 6:01 PM MUD JACK OPERATOR this procedure are in the results section. CALCIUM LEVEL Routine 12/09/2022 Results for 6:01 PM MUD JACK OPERATOR this procedure are in the results section. .GLOMERULAR FILTRATION Routine 12/09/2022 Resul ts for RATE 6:01 PM MUD JACK OPERATOR this procedure are in the results section. SERUM CREATININE Routine 12/09/2022 Results for 6:01 PM MUD JACK OPERATOR this procedure are in the results section. ELECTROLYTE PANEL Routine 12/09/2022 Results fo r 6:01 PM MUD JACK OPERATOR this procedure are in the results section. BLOOD UREA NITROGEN Routine 12/09/2022 Results for 6:01 PM MUD JACK OPERATOR this procedure are in the results section. GLUCOSE LEVEL Routine 12/09/2022 Results for 6:01 PM MUD JACK OPERATOR this procedure are in the results section. DIFFERENTIAL STAT 12/09/2022 Results for 6:01 PM MUD JACK OPERATOR this procedure are in the results section. .CBC STAT 12/09/2022 Results for 6:01 PM MUD JACK OPERATOR this procedure are in the results section. LACTATE DEHYDROGENASE Routine 12/09/2022 Result s for 6:01 PM MUD JACK OPERATOR this procedure are in the results section. APTT Routine 12/09/2022 Results for 6:01 PM MUD JACK OPERATOR this procedure are in the results section. PROTHROMBIN TIME Routine 12/09/2022 Results for 6:01 PM MUD JACK OPERATOR this procedure are in the results section. PHOSPHORUS LEVEL Routine 12/09/2022 Results for 6:01 PM MUD JACK OPERATOR this procedure are in the results section. MAGNESIUM LEVEL Routine 12/09/2022 Results for 6:01 PM MUD JACK OPERATOR this procedure are in the results section. COMPREHENSIVE METABOLIC Routine 12/09/2022 PANEL 6:01 PM MUD JACK OPERATOR COMPLETE BLOOD COUNT W/ Routine 12/09/2022 DIFFERENTIAL 6:01 PM MUD JACK OPERATOR AMMONIA LEVEL Routine 12/09/2022 Results for 6:01 PM MUD JACK OPERATOR this procedure are in the results section. COVID-19 (SARS-COV-2)PCR Routine 12/09/2022 R esults for - ASYMPTOMATIC - LT 6:01 PM MUD JACK OPERATOR this pro cedure are in the results section. HP MOLECULAR BLOOD Routine 12/04/2022 Results f or COLLECTION 10:56 AM MUD JACK OPERATOR this procedure are in the results section. ANA CRISTINA GRIFFIN SOLID TUMOR GENOMIC Routine 12/04/2022 ASSAY FUSIONS 2018 10:56 AM MUD JACK OPERATOR INTERPRETATION AND REPORT ANA CRISTINA GRIFFIN MDA CHRISTINE MUTATION Routine 12/04/2022 ANALYSIS PRECISION PANEL 10:56 AM MUD JACK OPERATOR INTERPRETATION AND REPORT MRI SKULL BASE WITH AND Routine 11/30/2022 Adenocarcinoma of Results for WITHOUT CONTRAST 11:12 AM MUD JACK OPERATOR nasopharynx this proced ure are in the results section. PETCT F18 FDG Routine 11/27/2022 Adenocarcinoma of Results f or (FLUORODEOXYGLUCOSE) WITH 3:57 PM MUD JACK OPERATOR nasoph arynx this procedure CONTRAST Malignant neoplasm are in th e of overlapping results sites of section. nasopharynx POC GLUCOSE SCREEN Routine 11/27/2022 Results f or 1:06 PM MUD JACK OPERATOR this procedure are in the results section. POC GLUCOSE SCREEN Routine 11/27/2022 Results f or 12:29 PM MUD JACK OPERATOR this procedure are in the results section. FRACTIONATED BILIRUBIN Routine 11/26/2022 Adenocarcinoma of Results for 1:07 PM MUD JACK OPERATOR nasopharynx this procedure are in the results section. TOTAL PROTEIN Routine 11/26/2022 Adenocarcinoma of Results f or 1:07 PM MUD JACK OPERATOR nasopharynx this procedure are in the results section. ASPARTATE AMINOTRANSFERASE Routine 11/26/2022 Adenocarcinoma of Results for 1:07 PM MUD JACK OPERATOR nasopharynx this procedure are in the results section. ALANINE AMINOTRANSFERASE Routine 11/26/2022 Adenocarcinoma o f Results for 1:07 PM MUD JACK OPERATOR nasopharynx this procedure are in the results section. ALKALINE PHOSPHATASE Routine 11/26/2022 Adenocarcinoma of Re sults for 1:07 PM MUD JACK OPERATOR nasopharynx this procedure are in the results section. ALBUMIN LEVEL Routine 11/26/2022 Adenocarcinoma of Results f or 1:07 PM MUD JACK OPERATOR nasopharynx this procedure are in the results section. CALCIUM LEVEL Routine 11/26/2022 Adenocarcinoma of Results f or 1:07 PM MUD JACK OPERATOR nasopharynx this procedure are in the results section. .GLOMERULAR FILTRATION Routine 11/26/2022 Adenocarcinoma of Results for RATE 1:07 PM MUD JACK OPERATOR nasopharynx this procedure are in the results section. SERUM CREATININE Routine 11/26/2022 Adenocarcinoma of Result s for 1:07 PM MUD JACK OPERATOR nasopharynx this procedure are in the results section. ELECTROLYTE PANEL Routine 11/26/2022 Adenocarcinoma of Resul ts for 1:07 PM MUD JACK OPERATOR nasopharynx this procedure are in the results section. BLOOD UREA NITROGEN Routine 11/26/2022 Adenocarcinoma of Res ults for 1:07 PM MUD JACK OPERATOR nasopharynx this procedure are in the results section. GLUCOSE LEVEL Routine 11/26/2022 Adenocarcinoma of Results f or 1:07 PM MUD JACK OPERATOR nasopharynx this procedure are in the results section. DIFFERENTIAL Routine 11/26/2022 Adenocarcinoma of Results fo r 1:07 PM MUD JACK OPERATOR nasopharynx this procedure are in the results section. .CBC Routine 11/26/2022 Adenocarcinoma of Results fo r 1:07 PM MUD JACK OPERATOR nasopharynx this procedure are in the results section. PROTHROMBIN TIME Routine 11/26/2022 Adenocarcinoma of Result s for 1:07 PM MUD JACK OPERATOR nasopharynx this procedure are in the results section. APTT Routine 11/26/2022 Adenocarcinoma of Results fo r 1:07 PM MUD JACK OPERATOR nasopharynx this procedure are in the results section. THYROID STIMULATING Routine 11/26/2022 Adenocarcinoma of Res ults for HORMONE 1:07 PM MUD JACK OPERATOR nasopharynx this procedure are in the results section. VITAMIN D 25 HYDROXY LEVEL Routine 11/26/2022 Adenocarcinoma of Results for 1:07 PM MUD JACK OPERATOR nasopharynx this procedure are in the results section. URIC ACID Routine 11/26/2022 Adenocarcinoma of Results fo r 1:07 PM MUD JACK OPERATOR nasopharynx this procedure are in the results section. PHOSPHORUS LEVEL Routine 11/26/2022 Adenocarcinoma of Result s for 1:07 PM MUD JACK OPERATOR nasopharynx this procedure are in the results section. MAGNESIUM LEVEL Routine 11/26/2022 Adenocarcinoma of Results for 1:07 PM MUD JACK OPERATOR nasopharynx this procedure are in the results section. LACTATE DEHYDROGENASE Routine 11/26/2022 Adenocarcinoma of R esults for 1:07 PM MUD JACK OPERATOR nasopharynx this procedure are in the results section. FREE THYROXINE Routine 11/26/2022 Adenocarcinoma of Results for 1:07 PM MUD JACK OPERATOR nasopharynx this procedure are in the results section. COMPREHENSIVE METABOLIC Routine 11/26/2022 Adenocarcinoma of PANEL 1:07 PM MUD JACK OPERATOR nasopharynx COMPLETE BLOOD COUNT W/ Routine 11/26/2022 Adenocarcinoma of DIFFERENTIAL 1:07 PM MUD JACK OPERATOR nasopharynx NGS BLOOD CONTROL Routine 11/26/2022 Adenocarcinoma of Re sults for 1:07 PM MUD JACK OPERATOR nasopharynx this procedure are in the results section. AP IHC HER2/ARCENIO MATERIAL Routine 11/26/2022 Adenocarcinoma o f REQUEST 12:43 PM MUD JACK OPERATOR nasopharynx AP IHC PD-L1 MATERIAL Routine 11/26/2022 Adenocarcinoma of REQUEST 12:43 PM MUD JACK OPERATOR nasopharynx ANA CRISTINA GRIFFIN PTEN MUTATION Routine 11/26/2022 Adenocarcinoma of Res ults for MATERIAL REQUEST 12:43 PM MUD JACK OPERATOR nasopharynx this proced ure are in the results section. ANA CRISTINA GRIFFIN MTOR MATERIAL Routine 11/26/2022 Adenocarcinoma of Res ults for REQUEST 12:43 PM MUD JACK OPERATOR nasopharynx this procedure are in the results section. ANA CRISTINA GRIFFIN ERBB2 MUTATION Routine 11/26/2022 Adenocarcinoma of Re sults for ANALAYSIS MATERIAL REQUEST 12:43 PM MUD JACK OPERATOR nasopharynx t his procedure are in the results section. ANA CRISTINA GRIFFIN EGFR MUTATION Routine 11/26/2022 Adenocarcinoma of Res ults for MATERIAL REQUEST 12:43 PM MUD JACK OPERATOR nasopharynx this proced ure are in the results section. ANA CRISTINA GRIFFIN ALK MUTATION Routine 11/26/2022 Adenocarcinoma of Resu lts for ANALAYSIS MATERIAL REQUEST 12:43 PM MUD JACK OPERATOR nasopharynx t his procedure are in the results section. ANA CRISTINA GRIFFIN NTRK3 FUSION Routine 11/26/2022 Adenocarcinoma of Resu lts for ANALYSIS MATERIAL REQUEST 12:43 PM MUD JACK OPERATOR nasopharynx th is procedure are in the results section. ANA CRISTINA GRIFFIN NTRK2 FUSION Routine 11/26/2022 Adenocarcinoma of Resu lts for ANALYSIS MATERIAL REQUEST 12:43 PM MUD JACK OPERATOR nasopharynx th is procedure are in the results section. ANA CRISTINA GRIFFIN NTRK1 FUSION Routine 11/26/2022 Adenocarcinoma of Resu lts for ANALYSIS MATERIAL REQUEST 12:43 PM MUD JACK OPERATOR nasopharynx th is procedure are in the results section. DIFFERENTIAL Routine 11/17/2022 Adenocarcinoma of Results fo r 12:11 PM MUD JACK OPERATOR nasopharynx this procedure are in the results section. .CBC Routine 11/17/2022 Adenocarcinoma of Results fo r 12:11 PM MUD JACK OPERATOR nasopharynx this procedure are in the results section. FRACTIONATED BILIRUBIN Routine 11/17/2022 Adenocarcinoma of Results for 12:11 PM MUD JACK OPERATOR nasopharynx this procedure are in the results section. TOTAL PROTEIN Routine 11/17/2022 Adenocarcinoma of Results f or 12:11 PM MUD JACK OPERATOR nasopharynx this procedure are in the results section. ASPARTATE AMINOTRANSFERASE Routine 11/17/2022 Adenocarcinoma of Results for 12:11 PM MUD JACK OPERATOR nasopharynx this procedure are in the results section. ALANINE AMINOTRANSFERASE Routine 11/17/2022 Adenocarcinoma o f Results for 12:11 PM MUD JACK OPERATOR nasopharynx this procedure are in the results section. ALKALINE PHOSPHATASE Routine 11/17/2022 Adenocarcinoma of Re sults for 12:11 PM MUD JACK OPERATOR nasopharynx this procedure are in the results section. ALBUMIN LEVEL Routine 11/17/2022 Adenocarcinoma of Results f or 12:11 PM MUD JACK OPERATOR nasopharynx this procedure are in the results section. CALCIUM LEVEL Routine 11/17/2022 Adenocarcinoma of Results f or 12:11 PM MUD JACK OPERATOR nasopharynx this procedure are in the results section. .GLOMERULAR FILTRATION Routine 11/17/2022 Adenocarcinoma of Results for RATE 12:11 PM MUD JACK OPERATOR nasopharynx this procedure are in the results section. SERUM CREATININE Routine 11/17/2022 Adenocarcinoma of Result s for 12:11 PM MUD JACK OPERATOR nasopharynx this procedure are in the results section. ELECTROLYTE PANEL Routine 11/17/2022 Adenocarcinoma of Resul ts for 12:11 PM MUD JACK OPERATOR nasopharynx this procedure are in the results section. BLOOD UREA NITROGEN Routine 11/17/2022 Adenocarcinoma of Res ults for 12:11 PM MUD JACK OPERATOR nasopharynx this procedure are in the results section. GLUCOSE LEVEL Routine 11/17/2022 Adenocarcinoma of Results f or 12:11 PM MUD JACK OPERATOR nasopharynx this procedure are in the results section. PROLACTIN Routine 11/17/2022 Adenocarcinoma of Results fo r 12:11 PM MUD JACK OPERATOR nasopharynx this procedure are in the results section. INSULIN-LIKE GROWTH FACTOR Routine 11/17/2022 Adenocarcinoma of Results for 1 12:11 PM MUD JACK OPERATOR nasopharynx this procedure are in the results section. TRIIODOTHYRONINE Routine 11/17/2022 Adenocarcinoma of Result s for 12:11 PM MUD JACK OPERATOR nasopharynx this procedure are in the results section. FREE THYROXINE Routine 11/17/2022 Adenocarcinoma of Results for 12:11 PM MUD JACK OPERATOR nasopharynx this procedure are in the results section. THYROID STIMULATING Routine 11/17/2022 Adenocarcinoma of Res ults for HORMONE 12:11 PM MUD JACK OPERATOR nasopharynx this procedure are in the results section. LUTEINIZING HORMONE Routine 11/17/2022 Adenocarcinoma of Res ults for 12:11 PM MUD JACK OPERATOR nasopharynx this procedure are in the results section. FOLLICLE STIMULATING Routine 11/17/2022 Adenocarcinoma of Re sults for HORMONE LEVEL 12:11 PM MUD JACK OPERATOR nasopharynx this procedure are in the results section. TESTOSTERONE LEVEL Routine 11/17/2022 Adenocarcinoma of Resu lts for 12:11 PM MUD JACK OPERATOR nasopharynx this procedure are in the results section. ESTRADIOL LEVEL Routine 11/17/2022 Adenocarcinoma of Results for 12:11 PM MUD JACK OPERATOR nasopharynx this procedure are in the results section. ADRENOCORTICOTROPIC Routine 11/17/2022 Adenocarcinoma of Res ults for HORMONE 12:11 PM MUD JACK OPERATOR nasopharynx this procedure are in the results section. CORTISOL, TOTAL Routine 11/17/2022 Adenocarcinoma of Results for 12:11 PM MUD JACK OPERATOR nasopharynx this procedure are in the results section. PROTHROMBIN TIME Routine 11/17/2022 Adenocarcinoma of Result s for 12:11 PM MUD JACK OPERATOR nasopharynx this procedure are in the results section. APTT Routine 11/17/2022 Adenocarcinoma of Results fo r 12:11 PM MUD JACK OPERATOR nasopharynx this procedure are in the results section. COMPLETE BLOOD COUNT W/ Routine 11/17/2022 Adenocarcinoma of DIFFERENTIAL 12:11 PM MUD JACK OPERATOR nasopharynx COMPREHENSIVE METABOLIC Routine 11/17/2022 Adenocarcinoma of PANEL 12:11 PM MUD JACK OPERATOR nasopharynx HEPATITIS C VIRUS ANTIBODY Routine 11/17/2022 Adenocarcinoma of Results for 12:11 PM MUD JACK OPERATOR nasopharynx this procedure are in the results section. PATHOLOGY OUTSIDE Routine 10/16/2022 Results fo r INTERPRETATION this procedur e are in the results section. after 09/26/2022 Results MRI Orbits with and without Contrast (09/13/2023 11:51 AM MUD JACK OPERATOR)Only the most recent of2 resultswithin the time period is included. Anatomical Region Laterality Modality Head Magnetic Resonance Specimen (Source) Anatomical Collection Method Collection Time Re ceived Time Location / / Volume Laterality 09/13/2023 12:11 PM MUD JACK OPERATOR Impressions 09/13/2023 12:37 PM MUD JACK OPERATOR Probable stable posttreatment changes given patient motion. No cervical adenopathy. ACTIONABLE ITEMS/RECOMMENDATIONS: None. Narrative 09/13/2023 12:37 PM MUD JACK OPERATOR FULL RESULT: Examination: MRI ORBITS W WO [...] IMG MRI ORDERABLES IGF-1 (09/13/2023 9:29 AM MUD JACK OPERATOR)Only the most recent of3 resultswithin the time period is included. athologist Signature IGF-1, LC/MS, 134 37 - 208 09/16/2023 [facility] S ng/mL 4:11 PM MUD JACK OPERATOR CAROLYN IGF Z-score 0.84 -2.0 - 2.0 09/16/2023 [facility] SD 4:11 PM BRANDAN LEON Comment: ADDITIONAL INFORMATIO N This test was developed and its performa nce characteristics determined by [facility] in a manner co nsistent with CLIA requirements. This test has not been sisi ared or approved by the U.S. Food and Drug Administration. Test Performed by: [facility] [address] [place] [address] Furnace Setter: Yonathan Guzman M.D. Ph. D.; CLIA# [id number] Specimen Anatomical Collection Method / Collection Time Recei alysa Time (Source) Location / Volume Laterality Blood Venipuncture / 09/13/2023 9:29 09/13/2023 9:29 Unknown AM MUD JACK OPERATOR AM MUD JACK OPERATOR Lindy GALE LAB BLOOD ORDERABLES Performing Organization Address City/State/ZIP Code Phon e Number [facility] CAROLYN ACTH (09/13/2023 9:29 AM MUD JACK OPERATOR)Only the most recent of4 resultswithin the time period is included. athologist [facility] ACTH 16 7 - 63 pg/mL 09/13/2023 [place] 10:16 AM MUD JACK OPERATOR Specimen Anatomical Collection Method / Collection Time Recei alysa Time (Source) Location / Volume Laterality Blood Venipuncture / 09/13/2023 9:29 09/13/2023 9:29 Unknown AM MUD JACK OPERATOR AM MUD JACK OPERATOR Narrative [place] - 09/13/2023 10:16 AM MUD JACK OPERATOR Reference range established based on adult population (7 - 10am draws). No established reference values for p.m. draws. Results greater than 1826 pg/mL may not be reliable due to matrix effect with extended dilution as it exceeds the station examiner's recommended limit. ACTH reference intervals are established for the morni ng hours from 7-10 am. Due to the circad katie rhythm of ACTH levels in plasma, the sample collection time must be noted. Caution should be exercised when interpreting such values and done in conjunction with clinical context. Lindy GALE LAB BLOOD ORDERABLES Performing Organization Address [facility] Phon e Number [place] [address] LINSEY JIMENEZ [address] [facility], [facility] [address] Prolactin (09/13/2023 9:29 AM MUD JACK OPERATOR)Only the most recent of3 resultswithin the time period is included. athologist Signature Prolactin Level 17.4 4.8 - 23.3 09/13/2023 MA MD BLACK ON ng/mL 2:43 PM MUD JACK OPERATOR [facility] CENTER Specimen Anatomical Collection Method / Collection Time Recei alysa Time (Source) Location / Volume Laterality Blood Venipuncture / 09/13/2023 9:29 09/13/2023 9:29 Unknown AM MUD JACK OPERATOR AM MUD JACK OPERATOR Narrative [place] - 2:43 PM MUD JACK OPERATOR Results greater than 4700.0 ng/mL may no t be reliable due to matrix effect with extended dilution as it exceeds the manu facturer s recommended limit. Caution should be e xercised when interpreting such values and done in conjunction with clinical contex t. Lindy GALE LAB BLOOD ORDERABLES Performing Organization Address [facility] Phon e Number [facility] Unless otherwise noted, [place] [address] [place] all lab tests performed by: Division of Pathology and Laboratory Medicine [facility] Estradiol (Women) (09/13/2023 9:29 AM MUD JACK OPERATOR)Only the most recent of3 resultswithin the time period is included. athologist Signature Estradiol <11 pg/mL 09/13/2023 2:43 [facility] PM MUD JACK OPERATOR [facility] CENTER Specimen Anatomical Collection Method / Collection Time Recei alysa Time (Source) Location / Volume Laterality Blood Venipuncture / 09/13/2023 9:29 09/13/2023 9:29 Unknown AM MUD JACK OPERATOR AM MUD JACK OPERATOR Narrative [place] - 3 2:43 PM MUD JACK OPERATOR Estradiol Reference Ranges Adult Female: Follicular: 31 - 90 pg/mL Luteal: 60 - 232 pg/mL Ovulation: 60 - 533 pg/mL Postmenopause: < 138 pg/ml Patients treated with Fulvestrant will s how falsely increase in estradiol concentrations due to cross-reaction. For further information or assistance, please contact pathologist. Lindy GALE LAB BLOOD ORDERABLES Performing Organization Address City/[facility]/ZIP Code Phon e Number [facility] Unless otherwise noted, [place] [address] CENTER all lab tests performed by: Division of Pathology and Laboratory Medicine [address] Total T3 (09/13/2023 9:29 AM MUD JACK OPERATOR)Only the most recent of3 resultswithin the time period is included. athologist Signature Triiodothyronine 110 80 - 200 09/13/2023 [place] ng/dL 10:12 AM MUD JACK OPERATOR Specimen Anatomical Collection Method / Collection Time Recei alysa Time (Source) Location / Volume Laterality Blood Venipuncture / 09/13/2023 9:29 09/13/2023 9:29 Unknown AM MUD JACK OPERATOR AM MUD JACK OPERATOR Lindy GALE LAB BLOOD ORDERABLES Performing Organization Address City/[facility]/ZIP Code Phon e Number [place], [place] [id number] [place] [address], [facility] [address] TSH (09/13/2023 9:29 AM MUD JACK OPERATOR)Only the most recent of4 resultswithin the time period is included. athologist Signature Thyroid 1.68 0.27 - 09/13/2023 [place] Stimulating 4.20 10:12 AM MUD JACK OPERATOR Hormone mcunit/mL Specimen Anatomical Collection Method / Collection Time Recei alysa Time (Source) Location / Volume Laterality Blood Venipuncture / 09/13/2023 9:29 09/13/2023 9:29 Unknown AM MUD JACK OPERATOR AM MUD JACK OPERATOR Lindy GALE LAB BLOOD ORDERABLES Performing Organization Address City/[facility]/ZIP Code Phon e Number [place], [place] [id number] [place] [address], [facility] [address] Free T4 (09/13/2023 9:29 AM MUD JACK OPERATOR)Only the most recent of4 resultswithin the time period is included. athologist Signature T4 (Thyroxine) 1.15 0.93 - 1.70 09/13/2023 [place] Free ng/dL 10:12 AM MUD JACK OPERATOR Specimen Anatomical Collection Method / Collection Time Recei alysa Time (Source) Location / Volume Laterality Blood Venipuncture / 09/13/2023 9:29 09/13/2023 9:29 Unknown AM MUD JACK OPERATOR AM MUD JACK OPERATOR Lindy GALE LAB BLOOD ORDERABLES Performing Organization Address City/[facility] [place] [address] [place] [address] [facility], [facility] [address] LH (09/13/2023 9:29 AM MUD JACK OPERATOR)Only the most recent of3 resultswithin the time period is included. athologist Signature Luteinizing 19.9 mIU/mL 09/13/2023 [facility] Hormone 2:43 PM [facility] Specimen Anatomical Collection Method / Collection Time Recei alysa Time (Source) Location / Volume Laterality Blood Venipuncture / 09/13/2023 9:29 09/13/2023 9:29 Unknown AM MUD JACK OPERATOR AM MUD JACK OPERATOR Narrative [place] - 2:43 PM MUD JACK OPERATOR Luteinizing Hormone Reference Ranges Female: Follicular: 2.4 - 12.6 mIU/mL Luteal: 1.0 - 11.4 mIU/mL Ovulation: 14.0 - 95.6 mIU/mL Post-menopause: 7.7 - 58.5 mIU/mL Lindy GALE LAB BLOOD ORDERABLES Performing Organization Address City/State/[facility] Code Phon e Number [facility] Unless otherwise noted, [place] [address] [place] all lab tests performed by: Division of Pathology and Laboratory Medicine Brian Hodges F[facility] (09/13/2023 9:29 AM MUD JACK OPERATOR)Only the most recent of3 resultswithin the time period is included. athologist Signature Follicle 37.5 mIU/mL 09/13/2023 [facility] Stimulating 2:43 PM [facility] Hormone Specimen Anatomical Collection Method / Collection Time Recei alysa Time (Source) Location / Volume Laterality Blood Venipuncture / 09/13/2023 9:29 09/13/2023 9:29 Unknown AM MUD JACK OPERATOR AM MUD JACK OPERATOR Narrative [place] - 2:43 PM MUD JACK OPERATOR Follicle Stimulating Hormone Reference Ranges Female: Follicular: 3.5 - 12.5 mIU/mL Luteal: 1.7 - 7.7 mIU/mL Ovulation: 4.7 - 21.5 mIU/mL Post-menopause: 25.8 - 134.8 mIU/mL Lindy GALE LAB BLOOD ORDERABLES Performing Organization Address City/State/[facility] Code Phon e Number [facility] Unless otherwise noted, [place] [address] CENTER all lab tests performed by: Division of Pathology and Laboratory Medicine Jasmyne5 Michelle Hodges (ABNORMAL) Total Cortisol (09/13/2023 9:29 AM MUD JACK OPERATOR)Only the most recent of4 resultswithin the time period is included. athologist Signature Cortisol 4.24 (L) 4.82 - 09/13/2023 [place] 19.50 10:12 AM MUD JACK OPERATOR mcg/dL Specimen Anatomical Collection Method / Collection Time Recei alysa Time (Source) Location / Volume Laterality Blood Venipuncture / 09/13/2023 9:29 09/13/2023 9:29 Unknown AM MUD JACK OPERATOR AM MUD JACK OPERATOR [facility] - 09/13/2023 10:12 AM MUD JACK OPERATOR Cortisol reference intervals are established for the [...] GALE LAB BLOOD ORDERABLES Performing Organization Address City/[facility] [place] [address] [place] [address] [facility], [facility] [address] .Serum Creatinine (04/22/2023 12:28 PM CDT)Only the most recent of44 results within the time period is included. athologist Signature Creatinine 0.80 0.51 - 0.95 [place] mg/dL Comment: Testing performed at [facility], [address] [place] [address] Specimen Anatomical Collection Method Collection Time Receive d Time (Source) Location / / Volume Laterality Blood 04/22/2023 12:28 04/22/2023 PM CDT 12:29 PM CDT Narrative [place] - 04/22/2023 1:04 PM CDT Coordinate all on same day. Ok to schedu le 1-2 weeks following 04/14 to coordinate appts Winter Luu MD LAB BLOOD ORDERABLES Performing Organization Address City/State/[place] [address], [place] [address] (ABNORMAL) .CBC (04/22/2023 12:28 PM CDT)Only the most recent of44 resultswithin the time period is included. athologist Signature WBC 6.5 4.0 - 11.0 [place] K/uL Comment: All components of the CBC perfo rmed at [facility], [address] [place] [address] 77 3 RBC 4.39 4.00 - 5.50 M/uL [place] Comment: All components of the CBC perfo rmed at [facility], [address] [place] [address] 77 3 Hgb 14.3 12.0 - 16.0 gm/dL [place] Comment: As part of CBC or as an individ ual orderable testing performed at [facility], [address] [place] [address] Hct 43.7 37.0 - 47.0 % [place] Comment: As part of CBC testing performe d at [facility], [address] [place] [address] MCV 100 (H) 82 - 98 fL [place] Comment: As part of CBC testing performe d at [facility], [address] [place] [address] MCH 32.6 (H) 27.0 - 31.0 pg [place] Comment: As part of CBC testing performe d at [facility], [address] [place] [address], [place] [address] MCHC 32.7 31.0 - 36.0 gm/dL [place] Comment: As part of CBC testing performe d at [facility], [address] [place] [address], [place] [address] RDW-SD 45.6 35.1 - 46.3 fL [place] Comment: As part of CBC testing performe d at [facility], [address] [place] [address], [place] [address] RDW-CV 12.1 12.0 - 15.5 % [place] Comment: As part of CBC testing performe d at [facility], [address] [place] [address], [place] [address] Platelet count 150 140 - 440 K/uL [facility] Y Comment: As part of CBC or an individual orderable testing performed at [facility], [address] [place] [address] MPV 9.6 4.0 - 10.4 fL [place] Comment: As part of CBC testing performe d at [facility], [address] [place] [address], [place] [address] Specimen Anatomical Collection Method Collection Time Receive d Time (Source) Location / / Volume Laterality Blood 04/22/2023 12:28 04/22/2023 PM CDT 12:29 PM CDT Narrative [place] - 04/22/2023 12:33 PM CDT Coordinate all on same day. Ok to schedu le 1-2 weeks following 04/14 to coordinate appts Winter Luu MD LAB BLOOD ORDERABLES Performing Organization Address City/State/[place] [address], [place] [address] Glomerular Filtration Rate (04/22/2023 12:28 PM CDT)Only the most recent of44 resultswithin the time period is included. athologist Signature eGFR 86 >=60 [place] mL/min/1.73 sq. m Comment: The eGFRcr is [...] fulfill criteria for CKD. Testing performed at [facility], [address] [place] [address] Specimen Anatomical Collection Method Collection Time Receive d Time (Source) Location / / Volume Laterality Blood 04/22/2023 12:28 04/22/2023 PM CDT 12:29 PM CDT Narrative [place] - 04/22/2023 1:04 PM CDT Coordinate all on same day. Ok to schedu le 1-2 weeks following 04/14 to coordinate appts Winter Luu MD LAB BLOOD ORDERABLES Performing Organization Address City/State/[place] [address], [place] [address] (ABNORMAL) Differential (04/22/2023 12:28 PM CDT)Only the most recent of44 resultswithin the time period is included. athologist Signature Neutrophil % 86.1 (H) 42.0 - [place] 66.0 % Comment: All components of the Different ial performed at [facility], [address] [place] [address] Lymphocyte % 10.9 (L) 24.0 - 44.0 % [place] Comment: As part of the Differential hailey ting performed at [facility], [address] [place] [address], [place] [address] Monocyte % 2.3 2.0 - 7.0 % [place] Comment: As part of the Differential hailey ting performed at [facility], [address] [place] [address], [place] [address] Eosinophil % 0.2 (L) 1.0 - 4.0 % [place] Comment: As part of the Differential hailey ting performed at [facility], [address] [place] [address], [place] [address] Basophil % 0.2 0.0 - 1.0 % [place] Comment: As part of the Differential hailey ting performed at [facility], [address] [place] [address], [place] [address] IGRE % 0.3 0.0 - 0.4 % [place] Comment: IGRE % count includes Metamyelocytes, My elocytes, and Promyelocytes. As part of the Differential testing perf ormed at [facility], [address] [place] [address], [place] [address] Neutrophil Abs 5.62 1.70 - 7.30 K/uL [facility] Comment: As part of the Differential hailey ting performed at [facility], [address] [place] [address], [place] [address] Lymphocyte Abs 0.71 (L) 1.00 - 4.80 K/uL [facility] Comment: As part of the Differential hailey ting performed at [facility], [address] [place] [address], [place] [address] Monocyte Abs 0.15 0.08 - 0.70 K/uL [facility] Comment: As part of the Differential hailey ting performed at [facility], [address] [place] [address], [place] [address] Eosinophil Abs 0.01 (L) 0.04 - 0.40 K/uL [facility] Comment: As part of the Differential hailey ting performed at [facility], [address] [place] [address], [place] [address] Basophil Abs 0.01 0.00 - 0.10 K/uL [facility] Y Comment: As part of the Differential hailey ting performed at [facility], [address] [place] [address] IG Abs 0.02 0.00 - 0.04 K/uL [place] Comment: As part of the Differential hailey ting performed at [facility], [address] [place] [address] Specimen Anatomical Collection Method Collection Time Receive d Time (Source) Location / / Volume Laterality Blood 04/22/2023 12:28 04/22/2023 PM CDT 12:29 PM CDT [facility] - 04/22/2023 12:33 PM CDT Coordinate all on same day. Ok to schedu le 1-2 weeks following 04/14 to coordinate appts Winter Luu MD LAB BLOOD ORDERABLES Performing Organization Address City/[facility]/ZIP Code Phon e Number [place], [place] [id number] [place] [address], [place] [address] BUN (04/22/2023 12:28 PM CDT)Only the most recent of44 resultswithin the time period is included. athologist Signature BUN 12 6 - 23 mg/dL [place] Comment: Testing performed at [facility], [address] [place] [address] Specimen Anatomical Collection Method Collection Time Receive d Time (Source) Location / / Volume Laterality Blood 04/22/2023 12:28 04/22/2023 PM CDT 12:29 PM CDT [facility] - 04/22/2023 1:04 PM CDT Coordinate all on same day. Ok to schedu le 1-2 weeks following 04/14 to coordinate appts Winter Luu MD LAB BLOOD ORDERABLES Performing Organization Address City/State/ZIP Code Phon e Number [facility] [place] [address], [place] [address] (ABNORMAL) Electrolyte Panel (04/22/2023 12:28 PM CDT)Only the most recent of45 resultswithin the time period is included. athologist Signature Sodium Lvl 135 (L) 136 - 145 [place] mEq/L Comment: Testing performed at [facility], [address] [place] [address] Potassium Lvl 4.7 3.5 - 5.1 mEq/L [facility] Y Comment: Testing performed at [facility], [address] [place] [address] Chloride 96 (L) 98 - 107 mEq/L [place] Comment: Testing performed at [facility], [address] [place], [place] [id number] CO2 21 (L) 22 - 29 mEq/L [place] Comment: Testing performed at [facility], [address] [place] [address] Anion Gap 18 (H) 4 - 14 mEq/L [place] Comment: Testing performed at [facility], [address] [place] [address] Specimen Anatomical Collection Method Collection Time Receive d Time (Source) Location / / Volume Laterality Blood 04/22/2023 12:28 04/22/2023 PM CDT 12:29 PM CDT Narrative [place] - 04/22/2023 1:04 PM CDT Coordinate all on same day. Ok to schedu le 1-2 weeks following 04/14 to coordinate appts Winter Luu MD LAB BLOOD ORDERABLES Performing Organization Address City/State/[place] [address], [place] [address] Fractionated Bilirubin (03/11/2023 11:15 AM CDT)Only the most recent of24 resultswithin the time period is included. athologist Signature Bili Total <0.3 <=1.2 mg/dL [place] Comment: Direct and indirect bilirubin will not b e reported when Total bilirubin result is <0.3 mg/dL Indocyanine Green (ICG) may cause falsel y elevated bilirubin results. Total and direct bilirubin must not be measured from samples containing indocyanine green. False elevation of total bilirubin can b e seen in patients with IgG concentrations above 28 g/L. Testing performed at [facility], [address] [place] [address] Specimen Anatomical Collection Method Collection Time Receive d Time (Source) Location / / Volume Laterality Blood 03/11/2023 11:15 03/11/2023 AM CDT 11:16 AM CDT [facility] - 03/11/2023 11:40 AM CDT Follow up at 1120, lab prior and infusio n after Lorena Hdez APRN LAB BLOOD ORDERABLES Performing Organization Address City/[facility]/ZIP Code Phon e Number [place], [place] [id number] [place] [address], [facility] [address] (ABNORMAL) ALT (03/11/2023 11:15 AM CDT)Only the most recent of24 resultswithin the time period is included. P athologist Signature ALT 40 (H) <=33 U/L [place] Comment: Testing performed at [facility], [address] [place] [address] Specimen Anatomical Collection Method Collection Time Receive d Time (Source) Location / / Volume Laterality Blood 03/11/2023 11:15 03/11/2023 AM CDT 11:16 AM CDT [facility] - 03/11/2023 11:40 AM CDT Follow up at 1120, lab prior and infusio n after Lorena Hdez APRN LAB BLOOD ORDERABLES Performing Organization Address City/[facility]/[place] [address], [facility] [address] Aspartate Aminotransferase (03/11/2023 11:15 AM CDT)Only the most recent of24 resultswithin the time period is included. P athologist Signature AST 26 <=32 U/L [place] Comment: Testing performed at [facility], [address] [place] [address] Specimen Anatomical Collection Method Collection Time Receive d Time (Source) Location / / Volume Laterality Blood 03/11/2023 11:15 03/11/2023 AM CDT 11:16 AM CDT [facility] - 03/11/2023 11:40 AM CDT Follow up at 1120, lab prior and infusio n after Lorena Hdez APRN LAB BLOOD ORDERABLES Performing Organization Address City/[facility]/ZIP Code Phon e Number [place], [place] [id number] [place] [address], [facility] [id number] Total Protein (03/11/2023 11:15 AM CDT)Only the most recent of24 resultswithin the time period is included. athologist Signature Total Protein 7.0 6.4 - 8.3 [place] g/dL Comment: Testing performed at [facility], [address] [place] [address] Specimen Anatomical Collection Method Collection Time Receive d Time (Source) Location / / Volume Laterality Blood 03/11/2023 11:15 03/11/2023 AM CDT 11:16 AM CDT [facility] - 03/11/2023 11:40 AM CDT Follow up at 1120, lab prior and infusio n after Lorena Hdez APRN LAB BLOOD ORDERABLES Performing Organization Address City/State/[facility] [place] [address], [facility] [address] (ABNORMAL) Alkaline Phosphatase (03/11/2023 11:15 AM CDT)Only the most recent of 24 resultswithin the time period is included. athologist Signature Alk Phos 107 (H) 35 - 104 [place] U/L Comment: Testing performed at [facility], [address] [place] [address] Specimen Anatomical Collection Method Collection Time Receive d Time (Source) Location / / Volume Laterality Blood 03/11/2023 11:15 03/11/2023 AM CDT 11:16 AM CDT [facility] - 03/11/2023 11:40 AM CDT Follow up at 1120, lab prior and infusio n after Lorena Garza Lemuel BRIDGE TENDER LAB BLOOD ORDERABLES Performing Organization Address City/[facility]/[place] [address], [facility] [address] (ABNORMAL) Magnesium Level (03/11/2023 11:15 AM CDT)Only the most recent of42 resultswithin the time period is included. athologist Signature Magnesium 1.4 (L) 1.6 - 2.6 [place] mg/dL Comment: Testing performed at [facility], [address] [place] [address] Specimen Anatomical Collection Method Collection Time Receive d Time (Source) Location / / Volume Laterality Blood 03/11/2023 11:15 03/11/2023 AM CDT 11:16 AM CDT Narrative [place] - 03/11/2023 11:40 AM CDT Follow up at 1120, lab prior and infusio n after Lorena Riojasjazmin Hdez APRN LAB BLOOD ORDERABLES Performing Organization Address City/[facility]/[place] [address], [facility] [address] (ABNORMAL) Glucose Level (03/11/2023 11:15 AM CDT)Only the most recent of43 resultswithin the time period is included. athologist Signature Glucose Level 324 (H) 70 - 99 [place] mg/dL Comment: Effective 05/27/16, the glucose reference intervals have been updated based on [employer] guidelines (Standards of Medical Care in Diabetes 2016. Diabetes Care 2016; 39: S13-S22). Fasting blood glucose: Normal: 70-99 mg/dL Impaired fasting glucose (increased risk for diabetes or pre-diabetes): 100- 125 mg/dL Diabetes mellitus: >/=126 mg/dL Random blood glucose: Normal: 70-199 mg/dL Note: Random glucose >100 mg/dL is assoc iated with increased risk for diabetes Testing performed at [facility], [address] [place] [address] Specimen Anatomical Collection Method Collection Time Receive d Time (Source) Location / / Volume Laterality Blood 03/11/2023 11:15 03/11/2023 AM CDT 11:16 AM CDT [facility] - 03/11/2023 11:40 AM CDT Follow up at 1120, lab prior and infusio n after Lorena Hdez APRN LAB BLOOD ORDERABLES Performing Organization Address City/[facility] [place] [address], [facility] [address] Calcium Level (03/11/2023 11:15 AM CDT)Only the most recent of43 resultswithin the time period is included. P athologist Signature Calcium Lvl 9.3 8.4 - 10.2 [place] mg/dL Comment: Testing performed at [facility], [address] [place] [address] Specimen Anatomical Collection Method Collection Time Receive d Time (Source) Location / / Volume Laterality Blood 03/11/2023 11:15 03/11/2023 AM CDT 11:16 AM CDT [facility] - 03/11/2023 11:40 AM CDT Follow up at 1120, lab prior and infusio n after Lorena Hdez APRN LAB BLOOD ORDERABLES Performing Organization Address City/[facility] [place] [address] [place] [id number] Albumin Level (03/11/2023 11:15 AM CDT)Only the most recent of24 resultswithin the time period is included. P athologist Signature Albumin Lvl 3.9 3.5 - 5.2 [place] gm/dL Comment: Testing performed at [facility], [address] [place] [address] Specimen Anatomical Collection Method Collection Time Receive d Time (Source) Location / / Volume Laterality Blood 03/11/2023 11:15 03/11/2023 AM CDT 11:16 AM CDT Narrative [place] - 03/11/2023 11:40 AM CDT Follow up at 1120, lab prior and infusio n after Lorena Hdez APRN LAB BLOOD ORDERABLES Performing Organization Address City/[facility] Code Phon e Number [facility] [place] [address] [facility] [address] [facility], [facility] [address] (ABNORMAL) POC Glucose Screen (02/16/2023 12:02 PM [...] Sample Type Capillary POC TELCOR Performing Lab [facility] POC TELCO R Comment: [facility], [address] [place] [address]; Lab Direct or: Chula Jacob MD; Waived Point of Care Testing - Gabrielle Mueller MD Specimen Anatomical Collection Method Collection Time Receive d Time (Source) Location / / Volume Laterality Blood 02/16/2023 12:02 02/16/2023 PM CDT 12:02 PM CDT Ashleigh Rangel MD POCT ORDERABLES - DEVIC E Performing Organization Address City/[facility] Phon e Number POC TELCOR Unless otherwise noted, [place] [address] lab tests performed by: Division of Pathology and Laboratory Medicine [address] [place] [address] (ABNORMAL) Anti-Xa Level (02/16/2023 11:13 AM CDT) athologist Signature Anti-Xa Level 1.45 (H) 0.00 - [facility] 0.10 [place] unit/mL [facility] Comment: Anti-Xa Level (Heparin [...] Ref: Chest 2008; 133;[id number]-1598S Hep Type Enoxaparin [facility] Specimen Anatomical Collection Method Collection Time Receive d Time (Source) Location / / Volume Laterality Blood 02/16/2023 11:13 02/16/2023 AM CDT 11:21 AM CDT Narrative [facility] - 3 1:11 PM CDT Nurse please coordinate with lab to draw n Anti-Xa level (low molecular weight heparin level) 4 hours after 02/16/23 morning kourtney xaparin dose is given. Angeli Wang MD LAB BLOOD ORDERABLES Performing Organization Address City/State/ZIP Code Phon e Number [facility] Unless otherwise noted, [address] all lab tests performed by: Division of Pathology and Laboratory Medicine [address] [place] [address] Phosphorus Level (02/16/2023 6:15 AM CDT)Only the most recent of40 resultswithin the time period is included. P athologist Signature Phosphorus 4.3 2.5 - 4.5 [facility] mg/dL [facility] Specimen Anatomical Collection Method Collection Time Receive d Time (Source) Location / / Volume Laterality Blood 02/16/2023 6:15 AM 3 6:59 CDT AM CDT DEEPTI Harrell APRN LAB BLOOD ORDERABLES Performing Organization Address City/State/ZIP [facility] Phon e Number [facility] Unless otherwise noted, [address] all lab tests performed by: Division of Pathology and Laboratory Medicine [address] [place] [address] General Laboratory Add-On Test (02/12/2023 9:33 AM CDT)Only the most recent of4 resultswithin the time period is included. Patholo gist Method Time Signature Ordered Test Added [facility] Test Needed procalcitonin [facility] Specimen Anatomical Collection Method Collection Time Receive d Time (Source) Location / / Volume Laterality Existing 02/12/2023 9:33 AM 3 9:34 CDT AM CDT Kimberli GALE LAB BLOOD ORDERABLES Performing Organization Address City/[facility]/ZIP Code Phon e Number [facility] Unless otherwise noted, [address] all lab tests performed by: Division of Pathology and Laboratory Medicine [address] [facility] (ABNORMAL) Procalcitonin (02/12/2023 5:34 AM CDT)Only the most recent of4 resultswithin the time period is included. P athologist Signature Procalcitonin 0.38 (H) <=0.08 [facility] ng/mL [facility] Comment: Procalcitonin > 2.00 ng/mL: [...] with extended dilution as it exceeds the station examiner's recommended limit. Caution should be exercised when interpreting such values and done in conjunction with clinical context. Specimen Anatomical Collection Method Collection Time Receive d Time (Source) Location / / Volume Laterality Blood 02/12/2023 5:34 AM 3 6:18 CDT AM CDT DEEPTI Harrell APRN LAB BLOOD ORDERABLES Performing Organization Address City/State/ZIP Code Phon e Number [place] [facility] [facility] Unless otherwise noted, [place] [address] CENTER all lab tests performed by: Division of Pathology and Laboratory Medicine [address] [facility] [place] Maxillofacial Area with Contrast (02/11/2023 4:15 [...] athologist Signature CK 125 26 - 192 [facility] U/L CANCER CENTER Specimen Anatomical Collection Method Collection Time Receive d Time (Source) Location / / Volume Laterality Blood 02/09/2023 5:37 AM 6:08 CDT AM CDT Shelby GALE LAB BLOOD ORDERABLES Performing Organization Address City/State/ZIP Code Phon e Number [facility] Unless otherwise noted, [place] [address] [place] all lab tests performed by: Division of Pathology and Laboratory Medicine [address] [place] [address] US Arm Venous Doppler Bilateral (02/08/2023 6:28 [...] PM CDT Examination: US ARM VENOUS DOPPLER [facility], 02/08/2023 6:28 PM Clinical History: Adenoid cystic [...] color flow and are patent. Procedure Note Mrati Bernstein MD - 02/08/2023 Examination: US ARM VENOUS DOPPLER [facility], 02/08/2023 6:28 PM Clinical History: Adenoid cystic [...] was not perform ed in this study. (Thermedical Study). Diastology: Indeterminate. Right Ventricle: The right [...] purpose. For additional information please refer to http://education.Perfect Memory.91 Wireless/fa q/KBG502 (This link is being provided for informa tional/ educational purposes only.) The performance of this assay has not be en clinically validated in patients less than 2 years old. Lab test performed by: Lab Mnemonic: RGA Maintenance Assistant [address] [id number] JOSE ELIAS MELÉNDEZ MD Specimen Anatomical Collection Method Collection Time Receive d Time (Source) Location / / Volume Laterality Blood 02/07/2023 6:52 AM 3 7:22 CDT AM CDT Thao Soria MD LAB BLOOD ORDERABLES Performing Organization Address City/[facility] Phon e Number [facility] Hepatitis C Virus Ab (02/07/2023 6:52 AM CDT)Only the most recent of2 results within the time period is included. [facility] Method Time Signature HCVAb. Non Reactive Non Reactive [facility] [place] Comment: Antibody detection in the immunocompromi sed [...] MD LAB BLOOD ORDERABLES Performing Organization Address City/[facility] Phon e Number [facility] Unless otherwise noted, [address] all lab tests performed by: Division of Pathology and Laboratory Medicine [address] [place] [address] Hepatitis B Total Ig Core Ab (SCREENING) (anti-HBc total Ig; HBcAb total Ig) (02/07/2023 6:52 AM CDT) [facility] Method Time Signature HBcAb. Non Reactive Non Reactive [facility] Specimen Anatomical Collection Method Collection Time Receive d Time (Source) Location / / Volume Laterality Blood 02/07/2023 6:52 AM 3 8:32 CDT AM CDT Thao Soria MD LAB BLOOD ORDERABLES Performing Organization Address City/[facility]/ZIP [facility] Phon e Number [facility] Unless otherwise noted, [address] all lab tests performed by: Division of Pathology and Laboratory Medicine [address] [place] [address] Hepatitis B Surface Ag (02/07/2023 6:52 AM CDT) [facility] Method Time Signature HBsAg. Non Reactive Non Reactive [facility] Specimen Anatomical Collection Method Collection Time Receive d Time (Source) Location / / Volume Laterality Blood 02/07/2023 6:52 AM 3 8:32 CDT AM CDT Thao Soria MD LAB BLOOD ORDERABLES Performing Organization Address City/[facility] Phon e Number [facility] Unless otherwise noted, [address] all lab tests performed by: Division of Pathology and Laboratory Medicine [address] [place] [address] Blood Culture (02/07/2023 6:52 AM CDT)Only the most recent of6 resultswithin the time period is included. athologist Signature Final Report No growth [facility] Specimen Anatomical Collection Method Collection Time Receive d Time (Source) Location / / Volume Laterality Blood 02/07/2023 6:52 AM 3 7:43 (Venipuncture-Ri CDT AM CDT ght) Comment: arm Tim Nguyen MD MICROBIOLOGY - GENERAL ORDER [place] Performing Organization Address City/[facility]/ZIP [facility] Phon e Number [facility] Unless otherwise noted, [address] all lab tests performed by: Division of Pathology and Laboratory Medicine [address] [place], [place] [address] Transferrin with TIBC (02/07/2023 6:52 AM CDT) athologist Signature Transferrin 205 200 - 360 [facility] mg/dL [facility] TIBC 287 250 - 450 [facility] mcg/dL [facility] Specimen Anatomical Collection Method Collection Time Receive d Time (Source) Location / / Volume Laterality Blood 02/07/2023 6:52 AM 3 7:07 CDT AM CDT Thao Soria MD LAB BLOOD ORDERABLES Performing Organization Address City/[facility]/ZIP [facility] Phon e Number [facility] CANC[facility] Unless otherwise noted, [address] all lab tests performed by: Division of Pathology and Laboratory Medicine [address] [facility] [place] Level (02/07/2023 6:52 AM CDT) athologist Signature Iron 51 37 - 145 [facility] Specimen Anatomical Collection Method Collection Time Receive d Time (Source) Location / / Volume Laterality Blood 02/07/2023 6:52 AM 3 7:07 CDT AM CDT Thao Soria MD LAB BLOOD ORDERABLES Performing Organization Address [facility] Phon e Number [facility] Unless otherwise noted, [address] all lab tests performed by: Division of Pathology and Laboratory Medicine [facility] (ABNORMAL) Hemoglobin A1c (02/07/2023 6:52 AM CDT)Only the most recent of2 resultswithin the time period is included. athologist Signature A1C 10.2 (H) 4.3 - 5.6 % [facility] Comment: HbA1c values >=6.5% are diagnostic of [...] Organization Address City/State/ZIP Code Phon e Number [facility]ER Unless otherwise noted, [address] all lab tests performed by: Division of Pathology and Laboratory Medicine [address] [facility] (ABNORMAL) Ferritin Level (02/07/2023 6:52 AM CDT) athologist Signature Ferritin Lvl 320 (H) 13 - 150 [facility] ng/mL CANCER CENTER Specimen Anatomical Collection Method Collection Time Receive d Time (Source) Location / / Volume Laterality Blood 02/07/2023 6:52 AM 3 7:07 CDT AM CDT Thao Soria MD LAB BLOOD ORDERABLES Performing Organization Address City/State/ZIP Code Phon e Number [facility]ER Unless otherwise noted, [address] all lab tests performed by: Division of Pathology and Laboratory Medicine [address] [place] (ABNORMAL) Lipid Panel (02/07/2023 6:52 AM CDT) athologist Signature Chol 137 <=199 mg/dL [facility] Comment: ATP III Classification of Total Choleste rol Primary Target of Therapy (in mg/dL): <200 Desirable 200-239 Borderline high >=240 High Trig 184 (H) <=149 mg/dL [facility] Comment: ATP III Classification of Serum Triglyce rides Primary Target of Therapy (in mg/dL): <150 Normal 150-199 Borderline high 200-499 High >=500 Very high Non-fasting triglycerides >200 mg/dL may be followed up with a fasting Lipid Panel. Calculated LDL-C may be falsely decreased when non-fasting triglycerides >200 mg/dL. HDL 27 (L) >=40 mg/dL [facility] LDL 73 <=100 mg/dL [facility] Comment: ATP III Classification of LDL Cholestero l Primary Target of Therapy (in mg/dL): <100 Optimal 100-129 Near optimal/above optimal 130-159 Borderline high 160-189 High >=190 Very high VLDL 37 mg/dL [facility] Specimen Anatomical Collection Method Collection Time Receive d Time (Source) Location / / Volume Laterality Blood 02/07/2023 6:52 AM 3 7:07 CDT AM CDT Thao Soria MD LAB BLOOD ORDERABLES Performing Organization Address City/State/ZIP Code Phon e Number [facility] Unless otherwise noted, [address] all lab tests performed by: Division of Pathology and Laboratory Medicine [facility] Michelle Hodges Clostridium Difficile DNA Path Review (02/07/2023 5:18 AM CDT) Component Value Ref Test Analysis Performed At [facility] gist Range Method Time Signature C diff DNA RI Reviewed and Electronically signed by Pathologist: [place] MD PATRICIA CHAVEZ MD #[id number] [facility] Comment: C. [...] for repeat testing. PATRICIA CHAVEZ MD - [id number] Dictated by: PATRICIA CHAVEZ MD - [id number] Dictated Date/Time: 02.07.2023 16:35 PM CDT Transcribed Date/Time: 02.07.2023 16:35 PM CDT Electronically Signed By: PATRICIA OTTO MD - [id number] on 02.07.2023 16:35 PM Specimen Anatomical Collection Method Collection Time Receive d Time (Source) Location / / Volume Laterality Stool 02/07/2023 5:18 AM 3 8:07 CDT AM CDT Thao Soria MD MICROBIOLOGY - GENERAL ORDER [place] Performing Organization Address City/State/ZIP Code Phon e Number [facility] CANCER Unless otherwise noted, [address] all lab tests performed by: Division of Pathology and Laboratory [facility] Clostridium Difficile DNA Assay (02/07/2023 5:18 AM CDT) Patholo gist Method Time Signature C difficile DNA Negative Negative CARLA GRIFFIN [facility] C difficle Toxin Test Not Negative CARLA GRIFFIN EIA Performed [facility] C difficile C. difficile [place] Interpretation DNA [place] detection CANCER was negative CENTER making C. difficile infection highly unlikely in this patient. EIA not performed. Specimen Anatomical Collection Method Collection Time Receive d Time (Source) Location / / Volume Laterality Stool 02/07/2023 5:18 AM 6:14 CDT AM CDT Son Amelia Soria MICROBIOLOGY - GENERAL ORDER [place] Performing Organization Address City/State/ZIP Code Phon e Number [place] [facility] Unless otherwise noted, [place] [address] CENTER all lab tests performed by: Division of Pathology and Laboratory Medicine [facility]5 [place] Gastrointestinal Multiplex Panel (02/07/2023 5:16 AM CDT) Component Value Ref Range Test Analysis Performed Pathologis t Method Time At [facility] Campylobacter Not Detected Not [place] Detected [facility] C difficile DNA (GI Refer to [place] Multi Panel) separate C. [place] difficile DNA CANCER Assay for CENTER results Plesiomonas Not Detected Not [place] shigelloides Detected [facility] Salmonella Not Detected Not [place] Detected [facility] Vibrio Not Detected Not [place] Detected [facility] Vibrio cholerae Not Detected Not [place] Detected [facility] Yersinia Not Detected Not [facility] enterocolitica Detected [facility] Enteroaggregative E. Not Detected Not [place] coli (EAEC) Detected [facility] Enteropathogenic E. Not Detected Not [facility] coli (EPEC) Detected [facility] Enterotoxigenic E. Not Detected Not [place] coli (ETEC) Detected [facility] Shiga-like Not Detected Not [facility] toxin-producing E. Detected EMMET col (STEC) [facility] E. coli O157 Not Not [place] Applicable Detected [facility] Shigella/Enteroinvas Not Detected Not [place] rosales E. coli (EIEC) Detected [facility] Cryptosporidium Not Detected Not [place] Detected [facility] Cyclospora Not Detected Not [place] cayetanensis Detected [facility] Entamoeba Not Detected Not [facility] histolytica Detected [facility] Giardia lamblia Not Detected Not [facility] Detected [facility] Adenovirus F 40/41 Not Detected Not [facility] Detected [facility] Astrovirus Not Detected Not [facility] Detected [facility] Norovirus GI/GII Not Detected Not [place] MD Detected [facility] Rotavirus A Not Detected Not [place] MD Detected [facility] Sapovirus (I, II, IV Not Detected Not [place] MD and V) Detected [facility] Specimen Anatomical Collection Method Collection Time Receive d Time (Source) Location / / Volume Laterality Stool 02/07/2023 5:16 AM 3 6:13 CDT AM CDT Thao Soria MD MICROBIOLOGY - GENERAL ORDER [place] Performing Organization Address City/State/[facility] Code Phon e Number [place] [facility] Unless otherwise noted, [place] [address] [place] all lab tests performed by: Division of Pathology and Laboratory Medicine [facility]5 [facility] Gastrointestinal Multiplex Panel Path Review (02/07/2023 5:16 AM CDT) [facility] gist Method Time Signature GIMP RI Reviewed and Electronically signed by Pathologist: CARLA CHAVEZ MD #[id number] [facility] Comment: Performed [...] correlation is recommended. PATRICIA CHAVEZ MD - [id number] Dictated by: PATRICIA CHAVEZ MD - [id number] Dictated Date/Time: 02.07.2023 16:40 PM CDT Transcribed Date/Time: 02.07.2023 16:40 PM CDT Electronically Signed By: PATRICIA OTTO MD - [id number] on 02.07.2023 16:40 PM Specimen Anatomical Collection Method Collection Time Receive d Time (Source) Location / / Volume Laterality Stool 02/07/2023 5:16 AM 3 6:13 CDT AM CDT Thao Soria MD LAB BLOOD ORDERABLES Performing Organization Address City/State/ZIP Code Phon e Number [facility] CANCER Unless otherwise noted, [address] all lab tests performed by: Division of Pathology and Laboratory Medicine [address] [facility] EKG, 12-Lead (Portable) (02/07/2023)Only the most recent [...] athologist Signature NT ProBNP 83 <=125 pg/mL [facility] Specimen Anatomical Collection Method Collection Time Receive d Time (Source) Location / / Volume Laterality Blood 02/06/2023 3:05 AM 3 3:20 CDT AM CDT Cathie Meneses APRNAGACNP LAB BLOOD ORDERABLES Performing Organization Address City/[facility] Phon e Number [facility] Unless otherwise noted, [address] all lab tests performed by: Division of Pathology and Laboratory Medicine [address] [facility] CRP (02/06/2023 3:05 AM CDT)Only the most recent of3 resultswithin the time period is included. athologist Signature CRP 65.62 mg/L [facility] Comment: Reference ranges for HS CRP assay [...] APRNP LAB BLOOD ORDERABLES Performing Organization Address City/[facility]/ZIP Code Phon e Number [facility] Unless otherwise noted, [address] all lab tests performed by: Division of Pathology and Laboratory Medicine [address] [place] [address] Troponin T (In-House) (02/06/2023 1:09 AM CDT)Only the most recent of2 results within the time period is included. P athologist Signature Troponin T 10 <=19 ng/L [facility] Comment: < 19 ng/L Suggest retest at [...] MD LAB BLOOD ORDERABLES Performing Organization Address [facility]/ZIP Code Phon e Number [facility] Unless otherwise noted, [address] all lab tests performed by: Division of Pathology and Laboratory Medicine [address] [place] [address] (ABNORMAL) Urine Culture (02/06/2023 12:40 AM CDT)Only [...] - GENERAL ORDER GODWIN Performing Organization Address City/[facility] Phon e Number [facility] Unless otherwise noted, [address] all lab tests performed by: Division of Pathology and Laboratory Medicine [address] [place], [place] [address]d aPTT (02/05/2023 8:26 PM CDT)Only the most recent of5 resultswithin the time period is included. P athologist Signature aPTT 28.5 22.8 - 34.2 [facility]() [facility] Specimen Anatomical Collection Method Collection Time Receive d Time (Source) Location / / Volume Laterality Blood 02/05/2023 8:26 PM 3 8:29 CDT PM CDT Deneen Guevara MD LAB BLOOD ORDERABLES Performing Organization Address [facility] Phon e Number [facility] Unless otherwise noted, [address] all lab tests performed by: Division of Pathology and Laboratory Medicine [address] [place] [address] VB Lactate (02/05/2023 8:26 PM CDT)Only the most recent of4 resultswithin the time period is included. P athologist Signature V Lactate 1.2 0.5 - 1.6 [facility] mmol/L [facility] Specimen Anatomical Collection Method Collection Time Receive d Time (Source) Location / / Volume Laterality Blood 02/05/2023 8:26 PM 3 8:29 CDT PM CDT Deneen Guevara MD LAB BLOOD ORDERABLES Performing Organization Address City/[facility] Phon e Number [facility] Unless otherwise noted, [address] all lab tests performed by: Division of Pathology and Laboratory Medicine [address] [place], [place] [address]d (ABNORMAL) Prothrombin Time with INR (02/05/2023 8:26 PM CDT)Only the most recent of5 resultswithin the time period is included. P athologist Signature PT 14.7 (H) 11.9 - 14.1 [facility] INR 1.16 (H) 0.89 - 1.10 [facility] Specimen Anatomical Collection Method Collection Time Receive d Time (Source) Location / / Volume Laterality Blood 02/05/2023 8:26 PM 8:29 CDT PM CDT Deneen Guevara MD LAB BLOOD ORDERABLES Performing Organization Address City/[facility]/ZIP Code Phon e Number [facility] Unless otherwise noted, [address] all lab tests performed by: Division of Pathology and Laboratory Medicine [address] [facility] (ABNORMAL) D Dimer (02/05/2023 8:26 PM CDT) P athologist Signature D-Dimer 3.04 (H) 0.10 - 0.50 [facility] mcg/ml [facility] Comment: The cut off value for exclusion of venou s thromboembolism is <0.51 mcg/mL FEUs (fibrinogen equival ent units). Specimen Anatomical Collection Method Collection Time Receive d Time (Source) Location / / Volume Laterality Blood 02/05/2023 8:26 PM 8:29 CDT PM CDT Deneen Guevara MD LAB BLOOD ORDERABLES Performing Organization Address City/[facility]/ZIP Code Phon e Number [facility] Unless otherwise noted, [address] all lab tests performed by: Division of Pathology and Laboratory Medicine [facility]5 [facility] X-ray Abdomen AP (02/05/2023 6:59 PM CDT) [...] of4 resultswithin the time period is included. [facility] Method Time Signature COVID19 Not Detected Not Detected CARLA GRIFFIN (SARS-CoV-2) [facility] COVID19 SARS Inpatient [place] Indication Admission [facility] Covid 19 See Note [place] Comment [facility] Comment: The ruby SARS-CoV-2 nucleic [...] fact sheet for patients provided by the station examiner ([employer]) can be reviewed at: https://www.fda.gov/media/334530/luislosourav lund. A fact sheet for Health Care providers is provided by the station examiner ([employer]) and can be reviewed at: https://www.fda.gov/media/265823/download Results must be interpreted within the c [...] and high-complexity tests. The Microbiology Laboratory at [facility], CLIA Accreditation #[id number] a ri CAP Accreditation #[id number], verified the performance characteristics of this assay. Internal controls are used to monitor all stages of the test process. Specimen (Source) Anatomical Collection Method Collection Time Re ceived Time Location / / Volume Laterality Nasopharyngeal Swab 02/05/2023 5:09 02/05 PM CDT 5:17 PM CDT Amanda Proctor MD MICROBIOLOGY - GENERAL ORDER GODWIN Performing Organization Address City/State/ZIP Code Phon e Number [facility] Unless otherwise noted, [address] all lab tests performed by: Division of Pathology and Laboratory Medicine [address] [place] [address] Lipase (02/05/2023 3:30 PM CDT)Only the most recent of4 resultswithin the time period is included. P athologist Signature Lipase Lvl 18 13 - 60 U/L [facility] Specimen Anatomical Collection Method Collection Time Receive d Time (Source) Location / / Volume Laterality Blood 02/05/2023 3:30 PM 3 3:39 CDT PM CDT Amanda Proctor MD LAB BLOOD ORDERABLES Performing Organization Address City/State/ZIP [facility] Phon e Number [facility] Unless otherwise noted, [address] all lab tests performed by: Division of Pathology and Laboratory Medicine [address] [place] [address] [place] CKMB (02/05/2023 3:30 PM CDT) P athologist Signature CK MB <2.0 <=5.3 ng/mL [facility] Specimen Anatomical Collection Method Collection Time Receive d Time (Source) Location / / Volume Laterality Blood 02/05/2023 3:30 PM 3 3:39 CDT PM CDT Amanda Proctor MD LAB BLOOD ORDERABLES Performing Organization Address City/State/ZIP Code Phon e Number [facility] Unless otherwise noted, [address] all lab tests performed by: Division of Pathology and Laboratory Medicine [facility] [place] Amylase Level (02/05/2023 3:30 PM CDT)Only the most recent of2 resultswithin the time period is included. P athologist Signature Amylase Lvl 43 28 - 100 [facility] U/L [facility] Specimen Anatomical Collection Method Collection Time Receive d Time (Source) Location / / Volume Laterality Blood 02/05/2023 3:30 PM 3 3:39 CDT PM CDT Amanda Proctor MD LAB BLOOD ORDERABLES Performing Organization Address City/State/ZIP Code Phon e Number [facility] Unless otherwise noted, [address] all lab tests performed by: Division of Pathology and Laboratory Medicine [address] (ABNORMAL) Urinalysis with Microscopic (02/05/2023 12:39 AM CDT) [facility] Method Time Signature UA Color [place] (A) Straw-Yel [facility] UA Appear Cloudy (A) Clear [facility] U[facility] Glucose 500 (A) NEG mg/dL [facility] Bili NEG NEG [facility] U[facility] Ketones 40 (A) NEG mg/dL [facility] UA Spec Grav 1.021 1.003 - [facility] 1.035 [facility] UA Blood NEG NEG [facility] UA pH 6.0 5.0 - 9.0 [facility] UA Protein 20 (A) NEG mg/dL [facility] UA Urobilinogen NEG NEG [facility] Nitrite NEG NEG [facility] Leuk Est NEG NEG [facility] UA WBC NOT SEEN 0 - 2 [facility] /[facility] Comment: Some reporting parameters within the Uri nalysis test have changed due to the implementation of new instrumentation in the [facility], allowing greater sensitivity of measurement. Urinalysis results rep orted by the [facility] using existing instrumentation, as well as Urinalysis t esting performed manually or by backup methodology at the [facility] will remain relatively unchanged. New reporting parameters and units will not be reported for all londones. UA RBC 13 (H) 0 - 2 /HPF [facility] UA Mucous NOT SEEN Not Seen-Trace /HPF [facility] UA Bacteria NOT SEEN NOT SEEN /HPF [facility] UA Squam Epi OCC None-Occasional /HPF [facility] Specimen Anatomical Collection Method Collection Time Receive d Time (Source) Location / / Volume Laterality Urine 02/05/2023 12:39 02/06/2023 AM CDT 12:42 AM CDT Irina Houston APRN URINE ORDERABLES Performing Organization Address City/State/ZIP Code Phon e Number [facility] Unless otherwise noted, [place] [address] [place] all lab tests performed by: Division of Pathology and Laboratory Medicine [address] Tip Verification Central Vascular Access Device (01/29/2023 3:08 PM CDT) Narrative Justo Banuelos RN - 01/29/2023 3:08 PM CDT Justo Banuelos RN 01/29/2023 3:08 PM Central Vascular Access Device Tip Verif ication Performed by: Justo Banuelos RN Authorized by: Rashaun Wiley MD [employer] Date device placed: 01/29/2023 Placed by: Justo Banuelos RN Device placement location: [facility] Catheter Type: PICC Catheter lumen: Double lumen [...] By: Rashaun Wiley MD Procedure Location: Inpatient Maintenance Craftsman present: yes (Saeed GRIFFIN) 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 Informed consent obtained prior to procedure, the risks, benefits, and alternative discussed with patient/designated community relations representative. Pre-p rocedure the patient was alert. [...] placement. placement and tip verified using tip barrel and receiver aligner and place ment and tip verified by [...] APRN LAB BLOOD ORDERABLES Performing Organization Address City/[facility]/ZIP Code Phon e Number [facility] Unless otherwise noted, [address] all lab tests performed by: Division of Pathology and Laboratory Medicine [address] [facility] Hematocrit (01/28/2023 8:24 AM CDT)Only the most recent of3 resultswithin the time period is included. athologist Signature Hct 40.6 37.0 - 47.0 [facility] Specimen Anatomical Collection Method Collection Time Receive d Time (Source) Location / / Volume Laterality Blood 01/28/2023 8:24 AM 3 8:30 CDT AM CDT Mana Powers APRN LAB BLOOD ORDERABLES Performing Organization Address City/[facility] Phon e Number [facility] Unless otherwise noted, [address] all lab tests performed by: Division of Pathology and Laboratory Medicine [address] (ABNORMAL) Urinalysis Microscopic Exam (01/26/2023 10:45 PM CDT) athologist Signature UA WBC 6 (H) 0 - 2 /HPF [facility] Comment: Some reporting parameters within the Uri nalysis test have changed due to the implementation of new instrumentation in the [facility] [place], allowing greater sensitivity of measurement. Urinalysis results rep orted by the [facility] using existing instrumentation, as well as Urinalysis t esting performed manually or by backup methodology at the [facility] [place] will remain relatively unchanged. New reporting parameters and units will not be reported for all campuses. UA RBC <1 0 - 2 /HPF [facility] UA Mucous NOT SEEN Not Seen-Trace /HPF MA MD [facility] UA Bacteria NOT SEEN NOT SEEN /HPF [facility] UA Squam Epi OCC None-Occasional /HPF [facility] Specimen Anatomical Collection Method Collection Time Receive d Time (Source) Location / / Volume Laterality Urine 01/26/2023 10:45 01/26/2023 PM CDT 10:49 PM CDT Amanda Proctor MD LAB BLOOD ORDERABLES Performing Organization Address City/[facility]/ZIP Code Phon e Number [facility] Unless otherwise noted, [address] all lab tests performed by: Division of Pathology and Laboratory Medicine [address] [place] [address] (ABNORMAL) Urinalysis w/Microscopic if Indicated (01/26/2023 10:45 PM CDT)Only the most recent of2 resultswithin the time period is included. Analysis Performed At Patho logist Time Signature UA Color Straw [facility] UA Appear Clear Clear [facility] UA Glucose 500 (A) NEG mg/dL [facility] UA Bili NEG NEG [facility] UA Ketones NEG NEG mg/dL [facility] UA Spec Grav 1.020 1.003 - [facility] 1.035 [facility] UA Blood NEG NEG [facility] UA pH 5.5 5.0 - 9.0 [facility]A Protein 30 (A) NEG mg/dL [facility] UA Urobilinogen NEG NEG [facility] UA Nitrite NEG NEG [facility] UA Leuk Est NEG NEG [facility] Specimen Anatomical Collection Method Collection Time Receive d Time (Source) Location / / Volume Laterality Urine 01/26/2023 10:45 01/26/2023 PM CDT 10:49 PM CDT Amanda Proctor MD URINE ORDERABLES Performing Organization Address City/[facility]/ZIP Code Phon e Number [facility] Unless otherwise noted, [address] all lab tests performed by: Division of Pathology and Laboratory Medicine [address] [place] [address] (ABNORMAL) LDH (01/26/2023 2:44 PM CDT)Only the most recent of3 resultswithin the time period is included. P athologist Signature LDH 289 (H) 135 - 214 [facility] U/L [facility] Comment: Results [...] Organization Address City/State/ZIP Code Phon e Number [facility] Unless otherwise noted, [place] [address] CENTER all lab tests performed by: Division of Pathology and Laboratory Medicine [address] (ABNORMAL) Controlled Substance Monitoring Panel, Urine (01/20/2023 12:37 PM CDT) Analysis Performed At Patho logist Time Signature Urine 55.1 mg/dL [facility] Creatinine [facility] Urine Specific 1.014 [facility] Gepp [facility] Urine Ph 6.2 [facility] Urine Oxidants Negative Cutoff: MA 200 mg/L [facility] Urine Comment Normal [facility] U Negative Cutoff: MA Barbiturates-Ma 200 ng/mL [facility] U Cocaine Negative Cutoff: MA Lvl-Luu 150 ng/mL [facility] Comment: This cocaine immunoassay targets benzoyl ecgonine the primary metabolite of cocaine. U THC-Luu See Footnote (A) Cutoff: 50 ng/mL [facility] Comment: RESULT: Presumptive Positive This immunoassay targets [...] Detected Cutoff: 25 ng/mL MA MD [facility] Comment: Tylenol 3 Wvmxixp-3-bxfi-glucuronide Not Detected Cutoff: 100 ng/mL [facility] Comment: Metabolite of codeine Morphine Not Detected Cutoff: 25 ng/mL MA MD [facility] Comment: Martha Mary, [place] Contin; Also a minor metabolite (10%) of codeine and can be seen in low concentra tions (<2,000 ng/mL) with poppy seed ingestion. Bewmvudr-7-narf-glucuronide Not Detected Cutoff: 100 ng/mL [facility] Comment: Metabolite of morphine 6-monoacetylmorphine Not Detected Cutoff: 25 ng/mL [facility] Comment: Metabolite of heroin Hydrocodone Not Detected Cutoff: 25 ng/mL [facility] Comment: Lortab, [place], Vicodin; Also a very luci r metabolite of codeine and impurity (<1%) of oxycodone. Norhydrocodone Not Detected Cutoff: 25 ng/mL [facility] Comment: Metabolite of hydrocodone Dihydrocodeine Not Detected Cutoff: 25 ng/mL [facility] Comment: Metabolite of hydrocodone Hydromorphone Not Detected Cutoff: 25 ng/mL [facility] Comment: Dilaudid, Exalgo; Also a metabolite of h ydrocodone and a minor (<5%) metabolite of morphine. Iclfkkikvjubq-8-qjnb-glucuronide Not Detected Cutoff: 100 [facility] ng/mL [facility] Comment: Metabolite of hydromorphone Oxycodone Present (A) Cutoff: 25 ng/mL [facility] Comment: Endocet, Percocet, Oxycontin Noroxycodone Present (A) Cutoff: 25 ng/mL [facility] Comment: Metabolite of oxycodone Oxymorphone Not Detected Cutoff: 25 ng/mL [facility] Comment: Numorphan, Opana; Also a metabo lite of oxycodone. Fjvnhseiwug-8-orfj-glucuronide Not Detected Cutoff: 100 ng/mL [facility] Comment: Metabolite of oxymorphone and/o r naloxone (nornaloxone) Noroxymorphone Present (A) Cutoff: 25 ng/mL [facility] Comment: Metabolite of oxymorphone and/o r naloxone (nornaloxone) Fentanyl Not Detected Cutoff: 2 ng/mL [facility] Comment: Actiq, Duragesic, Fentora Norfentanyl Not Detected Cutoff: 2 ng/mL [facility] Comment: Metabolite of fentanyl Meperidine Not Detected Cutoff: 25 ng/mL MA MD [facility] Comment: Demerol Normeperidine Not Detected Cutoff: 25 ng/mL [facility] Comment: Metabolite of meperidine Naloxone Not Detected Cutoff: 25 ng/mL MA MD [facility] Comment: Narcan Glcuhozy-5-yjzf-glucuronide Not Detected Cutoff: 100 ng/mL [facility] Comment: Metabolite of naloxone U Methadone Not Detected Cutoff: 25 ng/mL MA MD [facility] Comment: Dolophine EDDP Not Detected Cutoff: 25 ng/mL MA MD [facility] Comment: Metabolite of methadone Propoxyphene Not Detected Cutoff: 25 ng/mL MA MD Benjamin [facility] Comment: Darvon, Darvocet Norpropoxyphene Not Detected Cutoff: 25 ng/mL [facility] Comment: Metabolite of propoxyphene Tramadol Not Detected Cutoff: 25 ng/mL MA MD [facility] Comment: Tradol, Ultram, Ultracet O-desmethyltramadol Not Detected Cutoff: 25 ng/mL [facility] Comment: Metabolite of tramadol Tapentadol Not Detected Cutoff: 25 ng/mL MA MD [facility] Comment: Nucynta Azfejsrxsk-ikmi-hfclfrctvrt Not Detected Cutoff: 100 ng/mL [facility] Comment: Metabolite of tapentadol Buprenorphine Not Detected Cutoff: 5 ng/mL MA MD Benjamin [facility] Comment: Buprenex, Suboxone Norbuprenorphine Not Detected Cutoff: 5 ng/mL [facility] Comment: Metabolite of buprenorphine Norbuprenorphine Glucuronide Not Detected Cutoff: 20 ng/mL [facility] Comment: Metabolite of buprenorphine Opioid Interpretation See Footnote [facility] Comment: Test detected the presence of oxycodone and one of its metabolites (noroxycodone) along with no roxymorphone (metabolite of oxymorphone). Suspect use of oxymorphone and/or oxycodone within the past three d ays. Trace amounts of oxycodone can be found as an impurity in oxymorphone. ADDITIONAL INFORMATIO N This test was developed and its performa nce characteristics determined by [facility] in a manner co nsistent with CLIA requirements. This test has not been sisi ared or approved by the U.S. Food and Drug Administration. Alprazolam Urine Present (A) Cutoff: 10 ng/mL [facility] Comment: Xanax Alpha-Hydroxyalprazolam Urine Present (A) Cutoff: 10 ng/mL [facility] Comment: Metabolite of Alprazolam Alpha-Hydroxyalprazolam Present (A) Cutoff: 50 ng/mL [facility] Glucuronide Urine [facility] Comment: Metabolite of Alprazolam Chlordiazepoxide Urine Not Detected Cutoff: 10 ng/mL [facility] Comment: Librium Colbazam Urine Not Detected Cutoff: 10 ng/mL [facility] Comment: Frisium, Onfi N-Desmethylclobazam Urine Not Detected Cutoff: 200 ng/mL [facility] Comment: Metabolite of Clobazam Clonazepam Urine Not Detected Cutoff: 10 ng/mL [facility] Comment: Klonopin, Rivotril 7-Aminoclonazepam Urine Not Detected Cutoff: 10 ng/mL [facility] Comment: Metabolite of Clonazepam Diazepam Urine Not Detected Cutoff: 10 ng/mL [facility] Comment: Valium Nordiazepam Urine Not Detected Cutoff: 10 ng/mL [facility] Comment: Metabolite of Chlordiazepoxide, Diazepam, or Prazepam. Flunitrazepam Urine Not Detected Cutoff: 10 ng/mL [facility] Comment: Rohypnol 7-Aminoflunitrazepam Urine Not Detected Cutoff: 10 ng/mL [facility] Comment: Metabolite of Flunitrazepam FlUrinerazepam Urine Not Detected Cutoff: 10 ng/mL [facility] Comment: Dalmane 2-Hydroxy Ethyl Flurazepam Not Detected Cutoff: 10 ng/mL [facility] Comment: Metabolite of Flurazepam Lorazepam Urine Not Detected Cutoff: 10 ng/mL [facility] Comment: Ativan Lorazepam Glucuronide Not Detected Cutoff: 50 ng/mL [facility] Comment: Metabolite of Lorazepam Midazolam Urine Not Detected Cutoff: 10 ng/mL [facility] Comment: Versed Alpha-Hydroxy Midazolam Not Detected Cutoff: 10 ng/mL [facility] Urine CENTER Comment: Metabolite of Midazolam Oxazepam Urine Not Detected Cutoff: 10 ng/mL [facility] Comment: Serax; Also a metabolite of Chlordiazepo xide, Diazepam, or Temazepam. Oxazepam Glucuronide Urine Not Detected Cutoff: 50 ng/mL [facility] Comment: Metabolite of Oxazepam Prazepam Urine Not Detected Cutoff: 10 ng/mL [facility] Comment: Centrax Temazepam Urine Not Detected Cutoff: 10 ng/mL [facility] Comment: Restoril; Also a metabolite of Diazepam. Temazepam Glucuronide Not Detected Cutoff: 50 ng/mL [facility] Comment: Metabolite of Temazepam Triazolam Urine Not Detected Cutoff: 10 ng/mL [facility] Comment: Halcion Alpha-Hydroxy Triazolam Not Detected Cutoff: 10 ng/mL [facility] Comment: Metabolite of Triazolam Zolpidem Urine Not Detected Cutoff: 10 ng/mL [facility] Comment: Ambien Zolpidem Yyudb-2-Wnsbhjrpgh Present (A) Cutoff: 10 ng/mL [facility] Acid [facility] Comment: Metabolite of Zolpidem Benzodiazepine Interp Urine See Footnote [facility] Comment: Test detected the presence of alprazolam and two of its metabolites (alpha-hydroxyalprazolam and alpha-hydroxyalprazolam glucuronide). Agarwal spect use of alprazolam within the past three days. Test detected the presence of zolpidem p jqdzz-9-spmefbokpy acid (metabolite of zolpidem) only. Susp ect use of zolpidem within the past four days. ADDITIONAL INFORMATIO N This test was developed and its performa nce characteristics determined by [facility] in a manner co nsistent with CLIA requirements. This test has not been sisi ared or approved by the U.S. Food and Drug Administration. Methamphetamine Not Detected Cutoff: 100 ng/mL [facility] Comment: Desoxyn Amphetamine Not Detected Cutoff: 100 ng/mL MA MD Benjamin [facility] [facility] Comment: Dyanavel XR, Adzenys ER, Adderall, Vyvan se; Also a metabolite of methamphetamine 3,4-Methylenedioxymethamphetamine Not Detected Cutoff: 100 [facility] (MDMA) ng/mL [facility] 3,9-Kicmiizhspdxqm-P-Ethylamphetamine Not Detected Cutoff: 100 [facility] (MDEA) ng/mL [facility] 3,4-Methylenedioxyamphetamine (MDA) Not Detected Cutoff: 100 [facility] ng/mL [facility] Comment: Also a metabolite of MDMA and/o r MDEA Ephedrine Not Detected Cutoff: 100 ng/mL [facility] Pseudoephedrine Present (A) Cutoff: 100 ng/mL [facility] Comment: Sudafed Phentermine Not Detected Cutoff: 100 ng/mL [facility] Sourav [facility] Comment: Adipex-P, Lomaira, Qsymia Phencyclidine (PCP) Not Detected Cutoff: 20 ng/mL [facility] Methylphenidate Not Detected Cutoff: 20 ng/mL [facility] Comment: Ritalin, Concerta Ritalinic acid Not Detected Cutoff: 100 ng/mL [facility] Comment: Metabolite of methylphenidate Stimulant Interpretation See Footnote [facility] Comment: Test detected the presence of pseudoephe drine. Suspect use of pseudoephedrine within the past three days. ADDITIONAL INFORMATIO N This test was developed and its performa nce characteristics determined by [facility] in a manner co nsistent with CLIA requirements. This test has not been sisi ared or approved by the U.S. Food and Drug Administration. Test Performed by: [facility] - [address] 47 [address] Furnace Setter: Yonathan Guzman M.D. Ph. D.; CLIA# [id number] Patients Current Medications NOT ANSWERED [facility] Comment: ADDITIONAL INFORMATIO N Accuracy and completeness of declared me dications on reports solely dependent on information submitted by client. Specimen Anatomical Collection Method Collection Time Receive d Time (Source) Location / / Volume Laterality Urine 01/20/2023 12:37 01/20/2023 8:31 PM CDT PM CDT Rogerio Kramer MD URINE ORDERABLES Performing Organization Address City/State/ZIP Code Phon e Number [facility] Unless otherwise noted, [address] all lab tests performed by: Division of Pathology and Laboratory Medicine [address] (ABNORMAL) POC Urine Drug Screen (01/20/2023 12:37 PM CDT) athologist Signature POC U Amp Negative Negative [facility] Comment: Drug Abuse Cutoff Concentration: Cutoff: 1000 ng/mL POC U Barbit Negative Negative [facility] Comment: Drug Abuse Cutoff Concentration: 300 ng/mL POC U Benzo Positive (A) Negative [facility] Comment: Drug Abuse Cutoff Concentration: Cutoff: 300 ng/ mL POC U Cocaine Negative Negative [facility] Comment: Drug Abuse Cutoff Concentration: Cutoff: 300 ng/mL POC U THC Positive (A) Negative [facility] Comment: Drug Abuse Cutoff Concentration: Cutoff: 50 ng/mL POC U Methd Negative Negative [facility] Comment: Drug Abuse Cutoff Concentration: Cutoff: 300 ng/mL POC U Mampht Negative Negative [facility] Comment: Drug Abuse Cutoff Concentration: Cutoff: 1000 ng/mL POC U Opiate Negative Negative [facility] Comment: Drug Abuse Cutoff Concentration: Cutoff: 2000 ng/mL POC U Oxycod Positive (A) Negative [facility] Comment: Drug Abuse Cutoff Concentration: Cutoff: 100 ng/mL Due to the assay cross reactivity betwee n Oxycodone and Opiates, and lower sensitivity compared to GC-MS method, the test results may be falsely positive or falsely negative. Confirmation with concurrent GC-MS results is recommended. POC U PCP Negative Negative [facility] Comment: Drug Abuse Cutoff Concentration: Cutoff: 25 ng/mL POC U TCA Negative Negative [facility] Comment: Drug Abuse Cutoff Concentration: Cutoff: 1000 ng/mL POC U PPX Negative Negative [facility] Comment: Drug Abuse Cutoff Concentration: Cutoff: [...] 1:10 Catch PM CDT PM CDT Narrative [facility] - 1:30 PM CDT The POC Urine Qualitative Drug Screen Pa augusto report is intended for use in clinical monitoring or management of patients. Un confirmed screening results must not be used for non-medical purposes such as legal o r employment-related testing. Rogerio Kramer MD POINT OF CARE TEST ORDERA BLES Performing Organization Address City/State/ZIP Code Phon e Number [facility] Unless otherwise noted, [place] [address] [place] all lab tests performed by: Division of Pathology and Laboratory Medicine Jasmyne[address] Hodges Tetrahydocannabinol (THC), Quantitative, Urine (01/20/2023 12:37 PM CDT) athologist Signature U THC n/a CRALA GRIFFIN GC/MS-[facility] U THC see note CARLA Mcnairp-[facility] Comment: Carboxy-THC Confirmation, U: Carboxy-THC Interpretation: Positive ADDITIONAL INFORMATION: This report is intended for use in clini mari monitoring and management of patients. It is not intend ed for use in employment-related testing. Delta-8 Carboxy-Tetrahydrocannabinol by LC-MS/MS: 672 ng/mL Reference Value: Cutoff: 5 Delta-9 Carboxy-Tetrahydrocannabinol by LC-MS/MS: 42 ng/mL Reference Value: Cutoff: 5 PERFORMING LAB: [facility] [address] [place] [address] Yonathan Guzman M.D. Ph.D. [id number] U [facility] n/a [facility] Specimen Anatomical Collection Method Collection Time Receive d Time (Source) Location / / Volume Laterality Urine, Clean 01/20/2023 12:37 01/27/2023 Catch PM CDT 11:34 AM CDT Rogerio Kramer MD URINE ORDERABLES Performing Organization Address City/State/ZIP Code Phon e Number [facility] Unless otherwise noted, [place] [address] [place] all lab tests performed by: Division of Pathology and Laboratory Medicine [facility]5 [facility] X-ray Knee 1 Or 2 Views Right [...] OU - Both Eyes (12/29/2022 10:51 AM MUD JACK OPERATOR) Specimen (Source) Anatomical Location Collection Method / Collectio n Time Received Time / Laterality Volume Narrative Dillon-Suzanne Heredia MD - 12/30/2022 11:50 AM MUD JACK OPERATOR Right Eye Threshold was 30-2. The [...] OU - Both Eyes (12/29/2022 10:43 AM MUD JACK OPERATOR) Specimen (Source) Anatomical Location Collection Method / Collectio n Time Received Time / Laterality Volume Narrative Suzanne Mcgrath MD - 12/30/2022 11:44 AM MUD JACK OPERATOR Normal average thickness of peripapillary retinal nerve fiber layer . With borderline thinning temporally righ t eye Suzanne Mcgrath MD OPHTHALMOLOGY IMG ORDERABLES OCT, Retina - OU - Both Eyes (12/29/2022 10:43 AM MUD JACK OPERATOR) Specimen (Source) Anatomical Location Collection Method / Collectio n Time Received Time / Laterality Volume Narrative Suzanne Mcgrath MD - 12/30/2022 11:44 AM MUD JACK OPERATOR This result has an attachment that is no t available. Normal macular volume. No sign of serou s retinopathy Suzanne Mcgrath MD OPHTHALMOLOGY IMG ORDERABLES COVID-19 (SARS-CoV-2) PCR-Asymptomatic [facility] (12/23/2022 12:01 PM MUD JACK OPERATOR) [facility] Method Time Signature COVID19 (SARS Not Detected Not Detected MA CoV-2) [facility] [place] Comment: This test is a qualitative reverse-trans criptase polymerase chain reaction (RT- PCR) developed for the [employer]AS 6800 system and intended for qualitative detection of SARS CoV-2 RNA in nasopharyngeal a nd oropharyngeal swab specimens collecte d from any individuals, including those suspected o f COVID-19 by their healthcare provider, and those without symptoms or other reasons to suspect COVID-19. A fact sheet for patients provided by the station examiner ( [employer]) can be rev iewed at: https://www.fda.gov/media/313558/treasure lund. A fact sheet for Health Care providers is provided by the station examiner ([employer]) and can be reviewed at: https://www.fda.gov/media/465464/download Results must be interpreted within the c [...] were verified by the Microbiology Laboratory at [facility], CLIA Accreditation #: [id number] and CAP Accreditation #: [id number]. COVID19 SARS Source PRIVATE DUTY NURSE Swab MA MD [facility] COVID19 SARS Indication Pre-Radiation Therapy [facility] Specimen (Source) Anatomical Collection Method Collection Time Re ceived Time Location / / Volume Laterality Nasopharyngeal Swab 12/23/2022 12:01 12/03 PM MUD JACK OPERATOR 3:41 PM MUD JACK OPERATOR Winter Luu MD MICROBIOLOGY - GENERAL ORDER GODWIN Performing Organization Address City/State/ZIP Code Phon e Number [facility] Unless otherwise noted, [address] all lab tests performed by: Division of Pathology and Laboratory Medicine [address] OCT, Optic Nerve - OU - Both Eyes (12/15/2022 10:37 AM MUD JACK OPERATOR) Specimen (Source) Anatomical Location Collection Method / Collectio n Time Received Time / Laterality Volume Narrative Sheridan Alvarez MD - 12/17/2022 12:25 PM MUD JACK OPERATOR Right Eye Average nerve fiber layer thickness cons istent with normal Left Eye Average nerve fiber layer thickness cons istent with normal Sheridan Alvarez MD OPHTHALMOLOGY IMG ORDERABLES OCT, Retina - OU - Both Eyes (12/15/2022 10:37 AM MUD JACK OPERATOR) Specimen (Source) Anatomical Location Collection Method / Collectio n Time Received Time / Laterality Volume Narrative Sheridan Alvarez MD - 12/17/2022 12:25 PM MUD JACK OPERATOR Right Eye This is the baseline exam. Findings incl ude normal observations. Left Eye This is the baseline exam. Findings incl ude normal observations. Sheridan Alvarez MD OPHTHALMOLOGY IMG ORDERABLES Fundus Photos - OU - Both Eyes (12/15/2022 10:37 AM MUD JACK OPERATOR) Specimen (Source) Anatomical Location Collection Method / Collectio n Time Received Time / Laterality Volume Sheridan Angulo MD - 12/17/2022 12:25 PM MUD JACK OPERATOR Right Eye Basline Exam. Sheridan Alvarez MD OPHTHALMOLOGY IMG ORDERABLES 3D Dental Imaging (iCAT) (12/15/2022 8:42 AM MUD JACK OPERATOR) Specimen (Source) Anatomical Location Collection Method / Collectio n Time Received Time / Laterality Volume Narrative Systemgenerated, Documentation - 023 8:42 AM MUD JACK OPERATOR This procedure requires no interpretatio n from the radiologist. Benito Saini DDS IMG NON DI ORDERABLES FL Modified Barium Swallow w Speech (12/14/2022 2:37 PM MUD JACK OPERATOR) Anatomical Region Laterality Modality Neck Radio Fluoroscopy Specimen (Source) Anatomical Collection Method Collection Time Re ceived Time Location / / Volume Laterality 12/14/2022 2:58 PM MUD JACK OPERATOR Impressions 12/14/2022 3:08 PM MUD JACK OPERATOR 1. Flash penetration without aspiration seen with thin liquid barium. 2. Please refer to the separately dictat ed speech pathology report for further details and recommendations. Narrative 12/14/2022 3:08 PM MUD JACK OPERATOR FULL RESULT: Examination: FL MODIFIED BARIUM [...] or aspiration seen with pudding, and scrap picker cker. There was no pharyngeal residue. Pharyngeal [...] ORDERABLES (ABNORMAL) ABG Venous (12/11/2022 6:21 PM MUD JACK OPERATOR) P athologist Signature pH Raghavendra 7.40 7.32 - 7.43 [facility] [place] Comment: Results are corrected for a bod y temp of 37C pCO2 Raghavendra 47.6 41.0 - 51.0 mmHg MA MD [facility] pO2 Raghavendra 52 mmHg MA [facility] HCO3 Raghavendra 29 (H) 21 - 28 mmol/L [facility] Base Excess Raghavendra 3 -2 - 3 mmol/L MA MD [facility] O2 Sat Raghavendra 87 % [facility] Specimen Anatomical Collection Method Collection Time Receive d Time (Source) Location / / Volume Laterality Blood 12/11/2022 6:21 PM 3 6:29 MUD JACK OPERATOR PM MUD JACK OPERATOR Travis Lopez MD LAB BLOOD ORDERABLES Performing Organization Address City/[facility]/ZIP Code Phon e Number [facility] Unless otherwise noted, [address] all lab tests performed by: Division of Pathology and Laboratory Medicine [address] [place] [address] Ketone Bodies Qualitative (12/11/2022 5:19 PM MUD JACK OPERATOR) P athologist Signature UA Ketones NEG NEG mg/dL [facility] Specimen Anatomical Collection Method Collection Time Receive d Time (Source) Location / / Volume Laterality Urine 12/11/2022 5:19 PM 3 5:24 MUD JACK OPERATOR PM MUD JACK OPERATOR Waleska Salinas APRN URINE ORDERABLES Performing Organization Address [facility] Code Phon e Number [facility] Unless otherwise noted, [address] all lab tests performed by: Division of Pathology and Laboratory Medicine [facility]5 [facility] P[facility] Critical (12/11/2022 3:34 PM MUD JACK OPERATOR)Only the most recent of2 resultswithin the time period is included. P athologist Signature POC Critical See Note [facility]OC [facility] Comment Comment: Test performer notified Orderin g Licensed Provider and /or designee of POC Glucose Screen critical Results.. Specimen Anatomical Collection Method Collection Time Receive d Time (Source) Location / / Volume Laterality Blood 12/11/2022 3:34 PM 3 3:34 MUD JACK OPERATOR PM MUD JACK OPERATOR Travis Lopez MD POINT OF CARE TEST ORDERABLE S Performing Organization Address City/[facility]/ZIP Code Phon e Number [facility] Unless otherwise noted, [place] [address] lab tests performed by: Division of Pathology and Laboratory Medicine [address] [place] [address] (ABNORMAL) POC VBG+Lac (12/09/2022 9:36 PM MUD JACK OPERATOR) athologist Signature POC VB pH 7.46 [...] Clean Dev Yes [facility] Performing Lab [facility] POC [facility] R Comment: [facility], [address] [place] [id number]; Lab Direct or: Chula Jacob MD; Waived Point of Care Testing - Gabrielle Mueller MD Specimen Anatomical Collection Method Collection Time Receive d Time (Source) Location / / Volume Laterality Blood 12/09/2022 9:36 PM 9:36 MUD JACK OPERATOR PM MUD JACK OPERATOR Roberto Carlos Walsh MD POCT ORDERABLES - DEVICE Performing Organization Address City/State/ZIP Code Phon e Number [facility] Unless otherwise noted, [place] [address] lab tests performed by: Division of Pathology and Laboratory Medicine [address] [place] [address] Ammonia Level (12/09/2022 6:01 PM MUD JACK OPERATOR) athologist Signature Ammonia 18 11 - 51 MA [facility] Specimen Anatomical Collection Method Collection Time Receive d Time (Source) Location / / Volume Laterality Blood 12/09/2022 6:01 PM 6:15 MUD JACK OPERATOR PM MUD JACK OPERATOR Tammy Mike MD LAB BLOOD ORDERABLES Performing Organization Address City/[facility]/ZIP Code Phon e Number [facility] Unless otherwise noted, [address] all lab tests performed by: Division of Pathology and Laboratory Medicine Brian LOUIS MD, MDA CHRISTINE: Mutation Analysis Precision Panel Report (12/04/2022 10:56 AM MUD JACK OPERATOR) Specimen (Source) Anatomical Collection Method Collection Time Re ceived Time Location / / Volume Laterality 12/04/2022 10:56 AM MUD JACK OPERATOR Narrative This result has an attachment that is no t available. Lorena DE LA PAZ MOLECULAR BIOMARKERS Performing Organization Address City/[facility] Phon e Number [facility] Unless otherwise noted, [address] all lab tests performed by: Division of Pathology and Laboratory Medicine Brian Hodges Solid Tumor Genomic Assay Fusions 2018 Interpretation and Report (12/04/2022 10:56 AM MUD JACK OPERATOR) Specimen Anatomical Collection Method Collection Time Receive d Time (Source) Location / / Volume Laterality 12/04/2022 10:56 12/04/2022 AM MUD JACK OPERATOR 10:56 AM MUD JACK OPERATOR Narrative This result has an attachment that is no t available. Lorena DE LA PAZ MOLECULAR BIOMARKERS Performing Organization Address City/[facility] Phon e Number [facility] Unless otherwise noted, [address] all lab tests performed by: Division of Pathology and Laboratory Medicine Brian Hodges Molecular Diagnostics Specimen Collection -FFPE (12/04/2022 10:56 AM MUD JACK OPERATOR) Patholo gist Method Time Signature Molecular Yes MA [facility] (Received) CANCER CENTER Christianoaker Ap Link [id number] [facility] [place] Block Number BLANK MA (Qualitative) [facility] Outside [id number] MA [facility] (Qualitative) CANCER CENTER Specimen Anatomical Collection Method Collection Time Receive d Time (Source) Location / / Volume Laterality FFPE 12/04/2022 10:56 12/04/2022 AM MUD JACK OPERATOR 10:56 AM MUD JACK OPERATOR Lorena LOUIS MD NONBLOOD COLLECTIO NS Performing Organization Address City/State/ZIP Code Phon e Number [facility] Unless otherwise noted, [place] [address] CENTER all lab tests performed by: Division of Pathology and Laboratory Medicine [address] [facility] MRI Skull Base with and without Contrast (11/30/2022 11:12 AM MUD JACK OPERATOR) Anatomical Region Laterality Modality Head Magnetic Resonance Specimen (Source) Anatomical Collection Method Collection Time Re ceived Time Location / / Volume Laterality 12/01/2022 9:21 AM MUD JACK OPERATOR Impressions 12/01/2022 1:06 PM MUD JACK OPERATOR 1. 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 2. Tumor likely involves the lesser wi ng of the left sphenoid bone. 3. No lateral retropharyngeal or visua lized cervical adenopathy. Narrative 12/01/2022 1:06 PM MUD JACK OPERATOR FULL RESULT: Examination: MRI SKULL BASE [...] Enhanced Initial Treatment Strategy (11/27/2022 3:57 PM MUD JACK OPERATOR) Anatomical Region Laterality Modality Whole Body Positron Emission To mography (PET) Specimen (Source) Anatomical Collection Method Collection Time Re ceived Time Location / / Volume Laterality 11/30/2022 8:31 AM MUD JACK OPERATOR Impressions 11/30/2022 8:38 AM MUD JACK OPERATOR Subtle activity associated with subtle asymmetric fullness in posterior left nasal pharynx is compatible with reported primary tumor. No suspicious activity to suggest regional jeremiah or distant metastases. Narrative 11/30/2022 8:38 AM MUD JACK OPERATOR FULL RESULT: Examination: Contrast-Enhanced FDG PET [...] MD YUN Blood Control (11/26/2022 1:07 PM MUD JACK OPERATOR) P athologist Signature Molecular Yes [facility] (Received) Specimen Anatomical Collection Method Collection Time Receive d Time (Source) Location / / Volume Laterality Blood 11/26/2022 1:07 PM 3 9:13 MUD JACK OPERATOR AM MUD JACK OPERATOR Lorena Hdez BRIDGE TENDER MDA IP HP MOLECULAR DIAG IF ORDERABLES Performing Organization Address City/State/ZIP Code Phon e Number [facility] Unless otherwise noted, [place] [address] CENTER all lab tests performed by: Division of Pathology and Laboratory Medicine [address] (ABNORMAL) Vitamin D 25OH (11/26/2022 1:07 PM MUD JACK OPERATOR) athologist [facility] Vitamin D 25 OH 21 (L) 30 - 100 [place] ng/mL Comment: Reference Range: Deficiency: <10 ng/mL Insufficiency: 10-29 ng/mL Sufficiency: 30-100 ng/mL Potential toxicity: >100 ng/mL Testing performed at [facility], [address] [place] [address] Specimen Anatomical Collection Method Collection Time Receive d Time (Source) Location / / Volume Laterality Blood 11/26/2022 1:07 PM 3 1:19 MUD JACK OPERATOR PM MUD JACK OPERATOR Lorena Hdez APRN LAB BLOOD ORDERABLES Performing Organization Address City/[facility]/ZIP Code Phon e Number [place], [place] [id number] [place] [address], [facility] [address] (ABNORMAL) Uric Acid (11/26/2022 1:07 PM MUD JACK OPERATOR) [facility] Uric Acid 6.5 (H) 2.4 - 5.7 [place] mg/dL Comment: Testing performed at [facility], [address] [place] [address] Specimen Anatomical Collection Method Collection Time Receive d Time (Source) Location / / Volume Laterality Blood 11/26/2022 1:07 PM 3 1:19 MUD JACK OPERATOR PM MUD JACK OPERATOR Lorena Hdez APRN LAB BLOOD ORDERABLES Performing Organization Address City/[facility]/ZIP Code Phon e Number [place], [place] [id number] [place] [address], [facility] [address] NTRK3 Fusion Material Request (11/26/2022 12:43 PM MUD JACK OPERATOR) Component Value Ref Test Analysis Performed At [facility] gist Range Method Time Signature Archived The test is to be 12/04/2022 [facility] Material performed on 8:01 AM MUD JACK OPERATOR tissue from case [id number]. The case report, slides, and blocks for [...] Tissue specimen 11/26/2022 12:43 11/26/19 (specimen) PM MUD JACK OPERATOR 12:43 PM MUD JACK OPERATOR Lorena Hdez APRN [facility] IP AP BIOMARKERS Performing Organization Address City/[facility] Phon [place] [address], [place] [address] MD NTRK2 Fusion Material Request (11/26/2022 12:43 PM MUD JACK OPERATOR) Component Value Ref Test Analysis Performed At [facility] Range Method Time Signature Archived The test is to be 12/04/2022 [facility] Material performed on 8:01 AM MUD JACK OPERATOR tissue from case [id number]. The case report, slides, and blocks for [...] Tissue specimen 11/26/2022 12:43 11/26/19 (specimen) PM MUD JACK OPERATOR 12:43 PM MUD JACK OPERATOR Lorena Hdez APRN [facility] IP AP BIOMARKERS Performing Organization Address City/[facility] Phon e Number [facility] [place] [id number], [place] [address] MD [id number] Fusion Material Request (11/26/2022 12:43 PM MUD JACK OPERATOR) Component Value Ref Test Analysis Performed At [facility] logtrust Range Method Time Signature Archived The test is to be 12/04/2022 [facility] Material performed on 8:01 AM MUD JACK OPERATOR tissue from case [id number]. The case report, slides, and blocks for [...] Tissue specimen 11/26/2022 12:43 11/26/19 (specimen) PM MUD JACK OPERATOR 12:43 PM MUD JACK OPERATOR Lorena Hdez APRN [facility] IP AP BIOMARKERS Performing Organization Address City/State/[facility] Code Phon e Number [facility] [place] [address], [address] MD [id number] Mutation Analysis Material Request (11/26/2022 12:43 PM MUD JACK OPERATOR) Component Value Ref Test Analysis Performed At [facility] Method Time Signature Archived The test is to be 12/04/2022 [facility] Material performed on 8:01 AM MUD JACK OPERATOR tissue from case [id number]. The case report, slides, and blocks for [...] specimen 11/26/2022 12:43 11/26/19 23 (specimen) PM MUD JACK OPERATOR 12:43 PM MUD JACK OPERATOR Lorena Hdez APRN [facility] IP AP BIOMARKERS Performing Organization Address City/State/ZIP Code Phon e Number [facility] [place] [address], [place] [address] MD ALK Mutation Analysis Material Request (11/26/2022 12:43 PM MUD JACK OPERATOR) Component Value Ref Test Analysis Performed At [facility] Method Time Signature Archived The test is to be 12/04/2022 [facility] Material performed on 8:02 AM MUD JACK OPERATOR tissue from case [id number]. The case report, slides, and blocks for [...] specimen 11/26/2022 12:43 11/26/19 23 (specimen) PM MUD JACK OPERATOR 12:43 PM MUD JACK OPERATOR Lorena Hdez [facility] IP AP BIOMARKERS Performing Organization Address City/[facility]/ZIP Code Phon e Number [facility] [place] [address], [place] [address]15 Michelle Hodges MD MTOR Mutation Material Request (11/26/2022 12:43 PM MUD JACK OPERATOR) Component Value Ref Test Analysis Performed At [facility] Method Time Signature Archived The test is to be 12/04/2022 [facility] Material performed on 8:01 AM MUD JACK OPERATOR tissue from case [id number]. The case report, slides, and blocks for [...] specimen 11/26/2022 12:43 11/26/19 23 (specimen) PM MUD JACK OPERATOR 12:43 PM MUD JACK OPERATOR Lorena Kayla Hdez APRN [facility] IP AP BIOMARKERS Performing Organization Address City/[facility]/ZIP Code [place] [address], [place] [address]15 Michelle Hodges MD PTEN Mutation Material Request (11/26/2022 12:43 PM MUD JACK OPERATOR) Component Value Ref Test Analysis Performed At [facility] Range Method Time Signature Archived The test is to be 12/04/2022 [facility] Material performed on 8:02 AM MUD JACK OPERATOR tissue from case [id number]. The case report, slides, and blocks for the cited accession were retrieved from archives. The pathologist examined the candidate H&E slide and selected the block appropriate to the specifications of the ordered molecular analysis. Unstained slides and H&E slide were prepared and forwarded to [facility] where the subject molecular test will be performed. Results will be reported separately. Pathologist Electronically 12/04/2022 [facility] Signature signed by Larissa March 8:02 AM BRANDAN Medrano MD on 12/04/22 8:02 AM Specimen Anatomical Collection Method Collection Time Receive d Time (Source) Location / / Volume Laterality Tissue specimen 11/26/2022 12:43 11/26/19 23 (specimen) PM MUD JACK OPERATOR 12:43 PM MUD JACK OPERATOR Lorena Hdez APRN [facility] IP AP BIOMARKERS Performing Organization Address [facility] Code [place] [address], [place] [address]15 Michelle Hodges MD EGFR Mutation Material Request (11/26/2022 12:43 PM MUD JACK OPERATOR) Component Value Ref Test Analysis Performed At [facility] Range Method Time Signature Archived The test is to be 12/04/2022 [facility] Material performed on 8:02 AM MUD JACK OPERATOR tissue from case [id number]. The case report, slides, and blocks for [...] Signature signed by Larissa March 8:02 AM MUD JACK OPERATOR MD Mitchell on 12/04/22 8:01 AM Specimen Anatomical Collection Method Collection Time Receive d Time (Source) Location / / Volume Laterality Tissue specimen 11/26/2022 12:43 11/26/19 23 (specimen) PM MUD JACK OPERATOR 12:43 PM MUD JACK OPERATOR Lorena Hdez APRN [facility] IP AP BIOMARKERS Performing Organization Address City/[facility]/ZIP Code [place] [address], [place] [address]15 Michelle Overgaard IHC PD-L1 Material Request (11/26/2022 12:43 PM MUD JACK OPERATOR) Specimen Anatomical Collection Method Collection Time Receive d Time (Source) Location / / Volume Laterality Tissue specimen 11/26/2022 12:43 11/26/19 23 (specimen) PM MUD JACK OPERATOR 12:43 PM MUD JACK OPERATOR Lorena Hdez APRN [facility] IP AP BIOMARKERS Performing Organization Address City/[facility]/ZIP Code [place] [address], [place] 1515 Michelle Overgaard IHC HER2/arcenio Material Request (11/26/2022 12:43 PM MUD JACK OPERATOR) Specimen Anatomical Collection Method Collection Time Receive d Time (Source) Location / / Volume Laterality Tissue specimen 11/26/2022 12:43 11/26/19 23 (specimen) PM MUD JACK OPERATOR 12:43 PM MUD JACK OPERATOR Lorena Hdez APRN [facility] IP AP BIOMARKERS Performing Organization Address City/[facility] Code [place] [address], [place] [address] [place] Overgaard Testosterone Level (11/17/2022 12:11 PM MUD JACK OPERATOR) athologist Signature Testoster Tot <3 3 - 41 [place] ng/dL Comment: Reference Ranges: Male: Age 20 - 49 249 - 836 Age >=50 1 93 - 740 Female: Age 20 - 49 8 - 48 Age >=50 3 - 41 Testing performed at [facility], [place], [address] [place] [id number] Specimen Anatomical Collection Method Collection Time Receive d Time (Source) Location / / Volume Laterality Blood 11/17/2022 12:11 11/17/2022 PM MUD JACK OPERATOR 12:12 PM MUD JACK OPERATOR Red Berman BRIDGE TENDER LAB BLOOD ORDERABLES Performing Organization Address City/State/ZIP Code Phon e Number LINSEY JIMENEZ [facility] [place] [address] LINSEY JIMENEZ [address] [facility], [facility] [address] Pathology Outside Interpretation (10/16/2022) Component Value Ref Test Analysis Performed Pathologis t Range Method Time At Signature Materials Accession#, Stained, Block, Unstained Collected Received 11/27/2022 [facility] Received A. [id number], 7 SS, 1 BLOCKS, 0 USS 10/16/2022 11/24/2022 5:08 PM MUD JACK OPERATOR Addendum 1 At the request of the donell machado physician the following studies were performed and interpreted at [facility]. 11/27/2022 [facility] Addendum 5:08 PM electronic ally The tumor cells are negative for Her2 (0%) by immunohi stochemical analysis. MUD JACK OPERATOR signed by Gerald, The tumor cells are positive for cleaved NOTCH1 (< 70% ) by immunohistochemical analysis. MD Ashleigh on 11/27/2022 at PD-L1 (Clone 22C3, [employer]) Combine d Positive Score (CPS): is less than 1 5:08 PM Assay Information: This assa y is manufactured by [employer] and uses a monoclonal anti-PD-L1, clone 22C3. It is performed on formalin-fixed paraffin- embedded tissue using an T[employer] autostainer a nd polymer based detection k it, as specified by the station examiner. It is approved for use as a executive wellness programs director diagnostic for specific therapies on certain tumor [...] is defined as CPS 100. Diagnosis Outside ([id number], 7 SS, 1 BLOCKS, 0 USS, colle cted on 10/16/2022): 11/27/2022 [facility] Electronically 5:08 PM signed by Nasopharynx, biopsy: BRANDAN Duarte, ADENOID CYSTIC CARCINOMA, CRIBRIFORM TYPE see comment MD Ashleigh on 11/26/2022 at MDW/SALEEM 9:43 AM Comment Submitted 11/27/2022 [facility] immunohistochemical 5:08 PM stains performed by MUD JACK OPERATOR referring institution show that CK7 highlights the epithelial cells, and p63 and p40 highlights the myoepithelial cells. The morphology and immunophenotype is supportive of this classification. Biomarker Tumor block: 11/27/2022 [facility] Block(s) [id number] 5:08 PM MUD JACK OPERATOR Disclaimer "Some tests reported 11/27/2022 [facility] here may have been 5:08 PM developed and MUD JACK OPERATOR performance characteristics determined by [facility]. These tests have not been specifically cleared or approved by the [place].S. Food and Drug Administration. If applicable, controls were reviewed and showed appropriate reactivity." Specimen (Source) Anatomical Collection Method Collection Time Re ceived Time Location / / Volume Laterality Tissue specimen 10/16/2022 11/24/2022 3 :02 (specimen) PM MUD JACK OPERATOR Alexa Alvarez MD LAB PATHOLOGY ORDERABLES Performing Organization Address City/State/ZIP Code Phon e Number [facility] [place] [address], [address] Cleveland Overgaard after 09/26/2022 Insurance Payer Benefit Plan / Subscriber ID Effective Phone Address T ype Group Dates MEDICARE MEDICARE PART A [id number] 2010-Pres [phone] [place] Medicare AND B ent 782 SOLUTIONS [address] [facility] [place]ER [place] [phone] [place] [id number] 2022-Pres [address] Medicaid TRADITIONAL TRADITIONAL ent [id number] [place] [address] Advance Directives Code Status Date Activated Date Inactivated Comments Full Code 02/06/2023 1:33 AM 02/16/2023 6:41 PM Code Status Date Activated Date Inactivated Comments Full Code 01/26/2023 5:50 PM 02/01/2023 8:34 PM Full Code 01/11/2023 10:19 PM 01/18/2023 9:39 PM Full Code 12/09/2022 10:42 PM 12/15/2022 9:30 PM Care Teams Director Rehabilitation Program Relationship Specialty Start Date End Date Bina Obando PCP - External Otolaryngology 11/12/22 MD Joana Referring [address] [place] [phone] Kenya Agarwal MD PCP - General Head and Neck Surgery 11/12/[address] [place] [address] Trent Irving MD Family Practice 11/26/22 [address] [place] [address] Randall Sheriff [facility] 11/26/22 MD Maciej [address] [place], [place] [phone] Vignesh Waddell, Pulmonary Medicine 11/26/[address] [place] [address] Naa Miller Cardiology 11/26/22 MD Emerald [address] [phone] Tapan Harper Gastroenterology 11/26/22 MD Rosalio [address] [place], [place] [address] Rafael Rosas, Ophthalmology 11/26/[address] [place] [phone] Suzanne Mcgrath, Consulting Physician Ophthalmology 12/29/[address] [place] [phone] Winter Luu, Consulting Physician Radiation Oncology [address] [place] [address] Vaibhav Rosario, Consulting Physician Medical Oncology 11/26/[address] [place] [address] Williams, Consulting Physician Pain Management 01/20/23 MD Rogerio [address] [place] [address] Rosana Harkins MD Consulting Physician Hematology and Oncology 03/31/[address] [place] [phone] No Andrade, Consulting Physician Endocrinology 09/01/[address] [place] [id number]
[2023-09-26 12:42] LABS: Absolute Lymphocytes (CBC) 2.2 K/uL (0.7-4.9); Hematocrit 46.7 % (36.0-45.0); Lymphocytes % 22.4 % (15.3-44.8); MCV 90.9 fL (80-100); MPV 9.8 fL (7.6-11.3); Platelets 232 thou/uL (152-406); RBC Red Blood Cell Count 5.14 M/uL (3.86-4.86)
[2023-09-26 12:47] LABS: Protime INR 1.21
[2023-09-26 12:59] LABS: Bilirubin Direct 0.1 mg/dL (0-0.2); Bilirubin Total 0.4 mg/dL (0.2-1.0); Potassium 3.4 mEq/L (3.5-5.1)
[2023-09-26 13:00] LABS: Bilirubin Indirect, Calculated 0.3 mg/dL (0.2-0.8); Magnesium 1.6 mg/dL (1.6-2.4); Protein, Total 7.4 g/dL (6.4-8.2); Troponin High Sensitivity 5.4 pg/mL (<58.9)
[2023-09-26] MEDS ORDERED: NA CHLORIDE 0.9% 1,000 ML ONE (13:11)
[2023-09-26] MEDS ORDERED: FAMOTIDINE 20 MG/2 ML VIAL IV ONE (13:11)
--- NOTE | 2023-09-26 13:20 | RAD REPORT ---
EXAM DESCRIPTION: RAD - Abdomen Acute Series - 09/26/2023 12:37 pm CLINICAL HISTORY: Abdominal pain COMPARISON: None. TECHNIQUE: AP view of the chest, and AP views of the abdomen FINDINGS: Lungs are clear apart from minor left basilar atelectasis. Heart size and vessels are norm al. No pleural effusion, pneumothorax or other acute cardiopulmonary process seen. Bowel gas pattern is nonspecific. Left lower quadrant surgical drain. Sequelae of cholecystectomy. No bowel obstruction, free air or other acute findings. No suspicious calcifications. No other suspicious for significant findings. IMPRESSION: Negative acute abdomen series.
--- NOTE | 2023-09-26 13:22 | ER ---
Nurse's Notes [facility] Name: Maria De Jesus Acosta Age: 58 yrs Sex: Female : 1965 Arrival Date: 09/26/2023 Time: 11:57 Bed 7 Private MD: Diagnosis: Abdominal pain, Generalized;Vomiting following gastrointestinal surgery-persistent, with ROSCOE DRAIN, [id number];Obesity, unspecified;Hypokalemia;Type 2 diabetes mellitus with hyperglycemia Presentation: 09/26 11:58 Chief complaint: Patient states: L sided abdominal pain continues today. Here yesterday ll1 and checked out for the same. Gastric bypass 10 days ago. Coronavirus screen: Vaccine status: Patient reports being unvaccinated. Client denies travel out of the [place] in the last 14 days. At this time, the client does not indicate any symptoms associated with coronavirus-19. Ebola Screen: Patient denies travel to an Ebola-affected area in the 21 days before illness onset. Initial Sepsis Screen: Does the patient meet any 2 criteria? No. Patient's initial sepsis screen is negative. Does the patient have a suspected source of infection? Yes: Acute abdominal pain. Risk Assessment: Do you want to hurt yourself or someone else? Patient reports no desire to harm self or others. Onset of symptoms was September 16, 2023. 11:58 Method Of Arrival: EMS ll1 11:58 Acuity: EMERALD 3 ll1 Triage Assessment: 12:01 General: Appears uncomfortable, Behavior is calm, cooperative, appropriate for age. ll1 Pain: Complains of pain in abdomen Quality of pain is described as aching. GI: Reports lower abdominal pain, upper abdominal pain. Historical: - Allergies: 11:58 Doxycycline; ll1 11:58 kiwi; ll1 11:58 metoclopramide HCl; ll1 11:58 orange juice; ll1 11:58 Reglan; ll1 - PMHx: 11:58 Asthma; CHF; COPD; Crohn's; Diabetes - NIDDM; Hypertension; Nasal cancer; ll1 - PSHx: 11:58 Appendectomy; Cholecystectomy; Ligation of fallopian tube; partial hysterectomy; ll1 Shoulder; gastric bypass (Shoulder); - Immunization history:: Adult Immunizations up to date. - Social history:: Smoking status: Patient denies any tobacco usage or history of. - Family history:: not pertinent. Screenin:47 [facility] ED Fall Risk Assessment (Adult) History of falling in the last 3 months, ph including since admission No falls in past 3 months (0 pts) Score/Fall Risk Level 0 - 2 = Low Risk Oriented to surroundings, Maintained a safe environment. Abuse screen: Denies threats or abuse. Nutritional screening: No deficits noted. Tuberculosis screening: Assessment: 13:48 General: Appears in no apparent distress. Behavior is calm, cooperative, appropriate ph for age. Pain: Complains of pain in left upper quadrant and left lower quadrant. Neuro: Level of Consciousness is awake, alert, obeys commands, Oriented to person, place, time, situation. Cardiovascular: Capillary refill < 3 seconds in bilateral fingers. Respiratory: Airway is patent Respiratory effort is even, unlabored. GI: Abdomen is round Bowel sounds present X 4 quads. Abdomen is tender to palpation X 4 quads. Reports lower abdominal pain, upper abdominal pain, nausea. Derm: Skin is pink, warm \T\ dry. 14:21 Reassessment: Attempted to call report to [facility], per transfer center receiving nurse hb just went to lunch, instructed to call back in 30 minutes. Charge nurse Idalia GARBER aware. Vital Signs: 12:00 Weight 88 kg; Height 5 ft. 3 in. ; Pain 7/10; ll1 12:05 BP 140 / 93; Pulse 105; Resp 18; Temp 97.9; Pulse Ox 94% ; Weight 112.94 kg; Height 5 ls5 ft. 3 in. ; Pain 9/10; 13:47 BP 132 / 86; Pulse 89; Resp 18; Pulse Ox 92% on R/A; ph 16:26 BP 168 / 97; Pulse 95; Resp 18; Pulse Ox 94% on R/A; ph 12:05 Body Mass Index 44.11 (112.94 kg, 160.02 cm) ls5 12:00 Pain Scale: Adult ll1 12:05 Pain Scale: Adult ls5 Dirk Coma Score: 13:10 Eye Response: spontaneous(4). Motor Response: obeys commands(6). Verbal Response: ebenezer oriented(5). Total: 15. ED Course: 11:58 Patient arrived in ED. ll1 11:58 Arm band placed on Patient placed in an exam room, on a stretcher. ll1 12:00 Triage completed. ll1 12:06 Inserted saline lock: 20 gauge in right antecubital area, using aseptic technique. ls5 Blood collected. 12:12 Dominguez Voss MD is Attending Physician. ebenezer 12:39 Abdomen Acute Series XRAY In Process Unspecified. EDMS 13:31 CT Abd/Pelvis - IV Contrast Only In Process Unspecified. EDMS 13:[address] Voss called [facility] to start transfer. sp 13:47 Nguyen Ovalles, RN is Primary Nurse. ph 13:48 Patient has correct armband on for positive identification. Bed in low position. Call ph light in reach. Side rails up X 1. Pulse ox on. NIBP on. Door closed. Noise minimized. Visitors limited. Warm blanket given. 14:[address] Annette Mathis accepted pt to [facility] 1402 Marcelo Cuevas RN admin approval sp room 1547 report number [id number]. 15:44 called [facility] for Transport to [facility]. sp 17:05 No provider procedures requiring assistance completed. Patient transferred, IV remains ph in place. Administered Medications: 13:49 Drug: NS 0.9% IV 500 ml IV at bolus once Route: IV; Rate: bolus; Site: right ph antecubital; 13:49 Drug: Famotidine IVP 20 mg IVP once; dilute with 10 mL 0.9% NaCl; give over 2 minutes ph Route: IVP; Site: right antecubital; 13:49 Drug: Piperacillin-Tazobactam IVPB 3.375 grams IVPB once over 60 mins; (mix in NS 100 ph mL) Route: IVPB; Infused Over: 60 mins; Site: right antecubital; 13:49 Drug: morphine IVP or IV 2 mg IVP once over 4 mins Route: IVP; Infused Over: 4 mins; ph Site: right antecubital; 13:49 Drug: Ondansetron IVP 8 mg IVP once; over 2 minutes Route: IVP; Site: right antecubital;ph 16:24 Drug: morphine IVP or IV 2 mg IVP once over 4 mins Route: IVP; Infused Over: 4 mins; ph Site: right antecubital; 16:24 Drug: NS 0.9% with KCl IV 20 mEq/L 1000 ml IV at 125 ml/hr continuous Route: IV; Rate: ph 125 ml/hr; Site: right antecubital; 17:03 Not Given (Other Intervention Used): ssazkrvcswsn78.5 mg IVP once ph 17:04 Not Given (Other Intervention Used): insulin [id number] units Sub-Q once ph 17:05 Not Given (Other Intervention Used): insulin regular human4 units IVP once ph Medication: 13:48 VIS not applicable for this client. ph Outcome: 13:22 ER care complete, transfer ordered by . ebenezer 17:05 Transferred by ground EMS [facility]. to [facility], [facility], Transfer ph form completed. X-rays sent w/ patient. 17:05 Condition: stable 17:05 Instructed on the need for transfer, 17:06 Patient left the ED. ph Signatures: Dispatcher [employer] EDMS Dominguez Voss MD MD cha Pinkerton, Shawna sp Hall, Patricia, RN RN Azul Ta RN RN hb Lewis, Lynsay, RN RN 1 Maximilian Cook ls5 Corrections: (The following items were deleted from the chart) 14:15 12:06 Inserted saline lock: 18 gauge 20 gauge in right antecubital area, using aseptic ls5 technique. Blood collected. ls5 14:15 12:06 Inserted saline lock: 18 gauge 20 gauge in right antecubital area, using aseptic ls5 technique. Blood collected. ls5
--- NOTE | 2023-09-26 13:22 | EDPHYS ---
Physician Documentation [facility] Name: Maria De Jesus Acosta Age: 58 yrs Sex: Female : 1965 Arrival Date: 09/26/2023 Time: 11:57 Bed 7 Private MD: ED Physician Dominguez Voss HPI: 09/26 13:10 This 58 yrs old Female presents to ER via EMS with complaints of Abdominal ebenezer Pain. 13:10 The patient presents with abdominal pain abdominal distention in the upper abdomen, in ebenezer the lower abdomen. Onset: The symptoms/episode began/occurred 3 day(s) ago. The patient presents to the emergency department with nausea, vomiting, abdominal pain, of the right upper quadrant, left upper quadrant, right lower quadrant and left lower quadrant. Onset: The symptoms/episode began/occurred 3 day(s) ago. Possible causes: unknown. The symptoms are aggravated by nothing. The symptoms are alleviated by nothing. Associated signs and symptoms: The patient has no apparent associated signs or symptoms. The symptoms do not radiate. Associated signs and symptoms: Pertinent positives: nausea and vomiting, nausea, vomiting. Modifying factors: The symptoms are alleviated by nothing, the symptoms are aggravated by movement. Severity of pain: At its worst the pain was moderate in the emergency department the pain is unchanged. Severity of symptoms: At their worst the symptoms were moderate severe in the emergency department the symptoms are unchanged. Historical: - Allergies: 11:58 Doxycycline; ll1 11:58 kiwi; ll1 11:58 metoclopramide HCl; ll1 11:58 orange juice; ll1 11:58 Reglan; ll1 - PMHx: 11:58 Asthma; CHF; COPD; Crohn's; Diabetes - NIDDM; Hypertension; Nasal cancer; ll1 - PSHx: 11:58 Appendectomy; Cholecystectomy; Ligation of fallopian tube; partial hysterectomy; ll1 Shoulder; gastric bypass (Shoulder); - Immunization history:: Adult Immunizations up to date. - Social history:: Smoking status: Patient denies any tobacco usage or history of. - Family history:: not pertinent. ROS: 13:10 Constitutional: Negative for fever, chills, and weight loss, Eyes: Negative for injury, ebenezer pain, redness, and discharge, ENT: Negative for injury, pain, and discharge, Neck: Negative for injury, pain, and swelling, Cardiovascular: Negative for chest pain, palpitations, and edema, Respiratory: Negative for shortness of breath, cough, wheezing, and pleuritic chest pain, Back: Negative for injury and pain, : Negative for injury, bleeding, discharge, and swelling, MS/Extremity: Negative for injury and deformity, Skin: Negative for injury, rash, and discoloration, Neuro: Negative for headache, weakness, numbness, tingling, and seizure, Psych: Negative for depression, anxiety, suicide ideation, homicidal ideation, and hallucinations, Allergy/Immunology: Negative for hives, rash, and allergies, Endocrine: Negative for neck swelling, polydipsia, polyuria, polyphagia, and marked weight changes, Hematologic/Lymphatic: Negative for swollen nodes, abnormal bleeding, and unusual bruising, 13:10 Abdomen/GI: Positive for abdominal pain, nausea and vomiting, of the right upper quadrant, left upper quadrant, right lower quadrant and left lower quadrant, Exam: 13:10 Constitutional: This is a well developed, well nourished patient who is awake, alert, ebenezer and in no acute distress. Head/Face: Normocephalic, atraumatic. Eyes: Pupils equal round and reactive to light, extra-ocular motions intact. Lids and lashes normal. Conjunctiva and sclera are non-icteric and not injected. Cornea within normal limits. Periorbital areas with no swelling, redness, or edema. ENT: Nares patent. No nasal discharge, no septal abnormalities noted. Tympanic membranes are normal and external auditory canals are clear. Oropharynx with no redness, swelling, or masses, exudates, or evidence of obstruction, uvula midline. Mucous membranes moist. Neck: Trachea midline, no thyromegaly or masses palpated, and no cervical lymphadenopathy. Supple, full range of motion without nuchal rigidity, or vertebral point tenderness. No Meningismus. Chest/axilla: Normal chest wall appearance and motion. Nontender with no deformity. No lesions are appreciated. Respiratory: Lungs have equal breath sounds bilaterally, clear to auscultation and percussion. No rales, rhonchi or wheezes noted. No increased work of breathing, no retractions or nasal flaring. Abdomen/GI: Soft, non-tender, with normal bowel sounds. No distension or tympany. No guarding or rebound. No evidence of tenderness throughout. Back: No spinal tenderness. No costovertebral tenderness. Full range of motion. Female : Normal external genitalia. Skin: Warm, dry with normal turgor. Normal color with no rashes, no lesions, and no evidence of cellulitis. MS/ Extremity: Pulses equal, no cyanosis. Neurovascular intact. Full, normal range of motion. Neuro: Awake and alert, GCS 15, oriented to person, place, time, and situation. Cranial nerves II-XII grossly intact. Motor strength 5/5 in all extremities. Sensory grossly intact. Cerebellar exam normal. Normal gait. Psych: Awake, alert, with orientation to person, place and time. Behavior, mood, and affect are within normal limits. 13:10 Cardiovascular: Rate: tachycardic, actual rate is 105 bpm, Rhythm: regular, Pulses: Pulses are 4+ in bilateral radial, brachial, femoral, popliteal, posterior tibial and and dorsalis pedis arteries.. Heart sounds: normal, Edema: is not appreciated, JVD: is not appreciated, 13:10 ECG was reviewed by the Attending Physician. Vital Signs: 12:00 Weight 88 kg; Height 5 ft. 3 in. ; Pain 7/10; ll1 12:05 BP 140 / 93; Pulse 105; Resp 18; Temp 97.9; Pulse Ox 94% ; Weight 112.94 kg; Height 5 ls5 ft. 3 in. ; Pain 9/10; 13:47 BP 132 / 86; Pulse 89; Resp 18; Pulse Ox 92% on R/A; ph 16:26 BP 168 / 97; Pulse 95; Resp 18; Pulse Ox 94% on R/A; ph 12:05 Body Mass Index 44.11 (112.94 kg, 160.02 cm) ls5 12:00 Pain Scale: Adult ll1 12:05 Pain Scale: Adult ls5 Dirk Coma Score: 13:10 Eye Response: spontaneous(4). Motor Response: obeys commands(6). Verbal Response: ebenezer oriented(5). Total: 15. MDM: 12:12 Patient medically screened. ebenezer 13:17 Differential diagnosis: Nonspecific abd pain, gastritis, cholecystitis, viral ebenezer gastroenteritis, gastroenteritis, bowel obstruction, diverticulitis, gastritis, gastroesophageal reflux disease, GI Bleed, Irritable bowel syndrome, Mesenteric ischemia or infarction, non-specific abd pain, pancreatitis, Peptic Ulcer Disease, urinary tract infection. Consideration of Admission/Observation Patient was admitted/placed on observation. Escalation of care including admission/observation considered. I considered the following discharge prescriptions or medication management in the emergency department Medications were administered in the Emergency Department. See MAR. Independent interpretation of the following test(s) in the Emergency Department CT Scan: My interpretation is ct abd/pelvis from yesterday. Test considered but Not performed:. Historians other than the Patient: EMS: ems well informed. Care significantly affected by the following chronic conditions: Diabetes, Hypertension, Congestive Heart Failure, Obesity, cronhs. 13:23 Data reviewed: vital signs, nurses notes, EMS record, lab test result(s), EKG, [facility] radiologic studies, CT scan, plain films. Counseling: I had a detailed discussion with the patient and/or guardian regarding the historical points, exam findings, and any diagnostic results supporting the discharge/admit diagnosis, lab results, radiology results, the need to transfer to another facility. 09/26 12:15 Order name: Basic Metabolic Panel; Complete Time: 13:06 [facility] 09/26 12:15 Order name: CBC with Diff; Complete Time: 13: [facility] 09/26 12:15 Order name: LFT's; Complete Time: 13:06 [facility] 09/26 12:15 Order name: Magnesium; Complete Time: 13:06 [facility] 09/26 12:15 Order name: NT PRO-BNP; Complete Time: 13:06 09/26 12:15 Order name: PT-INR; Complete Time: 13:06 [facility] 09/26 12:15 Order name: Troponin HS; Complete Time: 13:06 [facility] 09/26 12:15 Order name: Lipase; Complete Time: 13:06 [facility] 09/26 12:15 Order name: Abdomen Acute Series XRAY; Complete Time: 13:22 [facility] 09/26 13:08 Order name: CT Abd/Pelvis - IV Contrast Only 09/26 12:15 Order name: EKG; Complete Time: 12:16 [facility] 09/26 12:15 Order name: Cardiac monitoring; Complete Time: 13:52 [facility] 09/26 12:15 Order name: EKG - Nurse/Tech; Complete Time: 13:52 [facility] 09/26 12:15 Order name: IV Saline Lock; Complete Time: 12:23 [facility] 09/26 12:15 Order name: Labs collected and sent; Complete Time: 12:23 ebenezer 09/26 12:15 Order name: O2 Per Protocol; Complete Time: 13: ebenezer 09/26 12:15 Order name: O2 Sat Monitoring; Complete Time: 13: ebenezer Administered Medications: 13:49 Drug: NS 0.9% IV 500 ml IV at bolus once Route: IV; Rate: bolus; Site: right ph antecubital; 13:49 Drug: Famotidine IVP 20 mg IVP once; dilute with 10 mL 0.9% NaCl; give over 2 minutes ph Route: IVP; Site: right antecubital; 13:49 Drug: Piperacillin-Tazobactam IVPB 3.375 grams IVPB once over 60 mins; (mix in NS 100 ph mL) Route: IVPB; Infused Over: 60 mins; Site: right antecubital; 13:49 Drug: morphine IVP or IV 2 mg IVP once over 4 mins Route: IVP; Infused Over: 4 mins; ph Site: right antecubital; 13:49 Drug: Ondansetron IVP 8 mg IVP once; over 2 minutes Route: IVP; Site: right antecubital;ph 16:24 Drug: morphine IVP or IV 2 mg IVP once over 4 mins Route: IVP; Infused Over: 4 mins; ph Site: right antecubital; 16:24 Drug: NS 0.9% with KCl IV 20 mEq/L 1000 ml IV at 125 ml/hr continuous Route: IV; Rate: ph 125 ml/hr; Site: right antecubital; 17:03 Not Given (Other Intervention Used): [id number] mg IVP once ph 17:04 Not Given (Other Intervention Used): insulin units Sub-Q once ph 17:05 Not Given (Other Intervention Used): insulin regular human4 units IVP once ph Disposition Summary: 09/26/23 13:22 Transfer Ordered Notes: Transfer Location: [facility] ebenezer Reason: Higher level of care ebenezer Condition: Fair ebenezer Problem: new ebenezer Symptoms: have improved ebenezer Accepting Physician: to [facility](09/26/23 17:06) ph Diagnosis - Abdominal pain, Generalized ebenezer - Vomiting following gastrointestinal surgery - persistent, with ROSCOE DRAIN, ebenezer [id number] - Obesity, unspecified ebenezer - Hypokalemia ebenezer - Type 2 diabetes mellitus with hyperglycemia ebenezer Forms: - Medication Reconciliation Form ebenezer - SBAR form ebenezer Signatures: Dispatcher [employer] EDDominguez Littlejohn MD MD cha Hall, Patricia, RN RN ph Idalia Reyes RN RN ll1 Corrections: (The following items were deleted from the chart) 13:32 13:22 to [facility], bariatrics ebenezer [facility] 17:06 13:32 to [facility], [facility]
[2023-09-26] MEDS ORDERED: ONDANSETRON 4 MG/2 ML VIAL ONE (13:29)
[2023-09-26] MEDS ORDERED: MORPHINE 2 MG/ML SYR ONE ×2 (13:29→16:33)
[2023-09-26] MEDS ORDERED: PIPERACIL/TAZO 3.375 GM VIAL IV ONE (13:29)
[2023-09-26] MEDS ORDERED: NA CHLORIDE 0.9% 100 ML ONE (13:29)
--- NOTE | 2023-09-26 14:48 | RAD REPORT ---
EXAM DESCRIPTION: CT - Abdomen Pelvis W Contrast - 09/26/2023 1:29 pm CLINICAL HISTORY: Abd pain;Abdominal distention COMPARISON: Abdomen Pelvis W Contrast dated 07/01/2023; Abdomen Pelvis W Contrast dated 05/18/2023 ; Abdomen Pelvis W Contrast dated 04/13/2023; Abdomen Pelvis W Contrast dated 03/20/2023; Abdomen W Contrast dated 09/25/2023 TECHNIQUE: Thin cut axial CT imaging of the abdomen and pelvis was performed following intravenous a dministration of 100 mL Isovue 300. Multiplanar reformats were generated and reviewed. All CT scans are performed using dose optimization technique as appropriate and may include automated exposure control or mA/KV adjustment according to patient size. FINDINGS: No suspicious findings in the lung bases. The liver, spleen, adrenal glands, and pancreas show no suspicious findings. Gallbladder was surgical ly removed. Symmetric renal function is seen with no hydronephrosis or suspicious renal mass. Expected postsurgical changes of recent Patria-en-Y gastric bypass again seen. No dilated bowel loops o r bowel wall thickening. No free air, free fluid, fluid collections, or inflammatory stranding. Left lower quadrant surgical drain unchanged in position. No hernia, mass or bulky lymphadenopathy. The ur inary bladder is without significant finding. No suspicious bony findings. IMPRESSION: No acute intra-abdominal process. Expected postsurgical changes as above.
[2023-09-26] MEDS ORDERED: NS KCL 20MEQ 1,000 ML IV ONE (16:33)
[2023-09-26 18:10] VITALS: TEMP 97.9
[2023-09-26 18:12] VITALS: BP 168/97; O2SAT 94
== END 2023-09-26 17:06 | disposition short-term general hospital (02) ==
LOC: ER 11:57
DX: R10.84 Generalized abdominal pain (principal); K91.0 Vomiting following gastrointestinal surgery; E87.6 Hypokalemia; E11.65 Type 2 diabetes mellitus with hyperglycemia; E66.9 Obesity, unspecified; Z68.41 Body mass index [BMI] 40.0-44.9, adult; Z88.1 Allergy status to other antibiotic agents; Z88.8 Allergy status to other drugs, medicaments and biological substances; Z91.018 Allergy to other foods
CPT/HCPCS: 85025; 80048; 36415; 83735; 85610; 80076; 84484; 83690; 83880; 74177; 74022; 96375; 96374; 99285; Q9967; J2543; J2270 ×2; J2405; J7030; J3480

== ENCOUNTER 2023-10-06 15:15 | Emergency (ER) | payer OTHER ==
--- OUTSIDE RECORDS SUMMARY | 2023-10-06 15:26 | XMS REPORT | Clinical Summary ---
Author Name Unknown Organization [facility] [place] Address [address] [place] [address] Care Team Providers Care Shake Sawyer Name Role Phone Bina Obando MD Unavailable [phone] Kenya Agarwal MD Primary Care Provider [phone] Trent Irving MD Unavailable [phone] Randall Sheriff MD Unavailable [phone] Vignesh Waddell MD Unavailable [phone] Naa Miller MD Unavailable [phone] [facility] Unavailable [phone] Rafael Rosas MD Unavailable [phone] Suzanne Mcgrath MD Unavailable [phone] Winter Luu MD Unavailable [phone] Vaibhav Rosario MD Unavailable [phone] Rogerio Kramer MD Unavailable [phone] Rosana Harkins MD Unavailable No Andrade MD Unavailable [phone] Allergies Active Allergy Reactions Criticality Noted Date Comments Doxycycline GI Intolerance,Nausea And Vomiting High 01/14/2015 Other reaction(s): Unknown Other reaction(s): n/v, Nausea/Vomiting, Unknown Kiwi (Actinidia Chinensis) Anaphylaxis,Other (See Comments) High 01/25/2022 Pregabalin Other (See Comments) 01/12/2023 depression Metformin GI Intolerance 07/28/2023 Metoclopramide GI Intolerance,Nausea And Vomiting,Other (See Comments) High 01/14/2015 Other reaction(s): UNKNOWN, Unknown - See comments Told by anesthesiologist that she should add to her allergies following a procedure Told by anesthesiologist that she should add to her allergies following a procedure Told by anesthesiologist that she should add to her allergies following a procedure Metoclopramide Hcl Other (See Comments) 10/16/2022 Davis Juice Nausea And Vomiting,GI Intolerance Low 04/18/2021 Medications Medication Sig Dispensed Refills Start Date End Date Status albuterol (VENTOLIN HFA,PROAIR HFA) 90 mcg/puff inhaler every 6 (six) hours as needed. 0 10/19/20 22 Active ALPRAZolam (XANAX) 2 mg tablet every 8 (eight) hours as needed for anxiety. 0 10/20/20 22 Active amLODIPine (NORVASC) 5 mg tablet TAKE 1 TABLET BY MOUTH EVERY DAY 0 10/13/20 22 Active atorvastatin (LIPITOR) 20 mg tablet TAKE 1 TABLET BY MOUTH EVERY DAY 0 09/12/20 22 Active Trelegy Ellipta 100-62.5-25 mcg dsdv INHALE 1 PUFF BY MOUTH EVERY DAY 0 09/18/20 22 Active mesalamine (APRISO) 0.375 gram 24 hr capsule TAKE 4 CAPSULES BY MOUTH DAILY 0 08/24/20 22 Active pantoprazole (PROTONIX) 40 mg EC tablet TAKE 1 TABLET BY MOUTH DAILY 0 10/13/20 22 Active Motegrity 2 mg tab TAKE 1 TABLET BY MOUTH DAILY 0 07/26/20 22 Active zolpidem (AMBIEN) 10 mg tablet TAKE 1 TABLET BY MOUTH AT BEDTIME NEEDED FOR INSOMNIA 0 10/17/20 22 Active prochlorperazine (Compazine) 10 mg tabletIndications :Adenoid cystic carcinoma of nasopharynx, NOS Take 1 tablet (10 mg) by mouth every 6 (six) hours as needed for nausea or vomiting (if not controlled by Ondansetron). 60 tablet 3 12/17/19 23 Active lisinopril (PRINIVIL,ZESTRIL ) 40 mg tablet Take 1 tablet (40 mg) by mouth every morning. 0 Active naloxone (Narcan) 4 mg/actuation nasal sprayIndications: terminologist current use of opiate analgesic 1 dose into one nostril as needed for opioid overdose. another dose into the other nostril after 2 minutes if the patient does not respond 2 each 0 01/21/20 23 Active pen needle, diabetic (Easy Comfort Pen [place]) 31 gauge x 5/16" ndleIndications:T ype 2 diabetes mellitus with hyperglycemia Use to inject insulin 4 times a day 100 each 1 02/01/20 23 Active ondansetron (ZOFRAN) 8 mg tabletIndications :Adenoid cystic carcinoma of nasopharynx, NOS Take 1 tablet (8 mg) by mouth every 8 (eight) hours as needed for nausea or vomiting. 30 tablet 3 02/05/20 23 024 Active lidocaine (XYLOCAINE) 20 mg/mL (2%) viscous solutionIndicatio ns:Adenocarcinoma of nasopharynx Swish and swallow 5 mL every 6 (six) hours as needed (painful swallowing). 100 mL 3 02/05/20 23 Active fluticasone propionate (FLONASE) 50 mcg/spray nasal sprayIndications: Adenoid cystic carcinoma of nasopharynx, NOS Inhale 2 sprays (100 mcg) into each nostril twice daily. 11.1 mL 3 02/05/20 23 Active allopurinol (ZYLOPRIM) 300 mg tabletIndications :prevention of acute gout attack Take 1 tablet (300 mg) by mouth twice daily. 0 Active colchicine (COLCRYS) 0.6 mg tabletIndications :prevention of acute gout attack Take 1 tablet (0.6 mg) by mouth daily. 0 Active dicyclomine (BENTYL) 10 mg capsule Take 1 capsule (10 mg) by mouth 3 (three) times a day. 0 Active insulin regular hum U-500 conc (HumuLIN R U-500, Conc, Kwikpen) 500 unit/mL (3 mL) insulin penIndications:Ty pe 2 diabetes mellitus without complication Inject 70-180 Units under the skin daily with breakfast AND 40-105 Units daily before lunch AND 35-95 Units daily before dinner. 30 mL 11 02/17/20 23 Active Additional Information Patient taking differently: Inject 14-190 Units under the skin daily with breakfast AND 100-145 Units daily before lunch AND 60-95 Units daily before dinner., Reason: Other, Informant: Self, Reported on 07/28/2023 pseudoephedrine (Sudafed) 30 mg tabletIndications :Chronic pain Take 1 tablet (30 mg) by mouth every 8 (eight) hours as needed for congestion. 60 tablet 0 02/27/20 23 Active oxyCODONE-acetami nophen (Percocet) 5 mg-325 mg per tabletIndications :Cancer associated pain Take 1 tablet by mouth 2 (two) times a day as needed for severe pain. 60 tablet 0 03/04/20 23 Active gabapentin (NEURONTIN) 800 mg tabletIndications :Chronic pain TAKE 1 TABLET(800 MG) BY MOUTH EVERY 8 HOURS 90 tablet 0 04/09/20 23 Active promethazine-dext romethorphan (PROMETHAZINE-DM) 6.25-15 mg/5 mL syrup TAKE 5 ML BY MOUTH EVERY 6 HOURS NEEDED FOR COUGH 0 03/30/20 Active benzonatate (TESSALON) 100 mg capsule Take 1 capsule (100 mg) by mouth as needed. 0 03/26/20 23 Active spironolactone (ALDACTONE) 25 mg tablet TAKE 1 TABLET BY MOUTH EVERY DAY 0 03/27/20 Active metoprolol succinate (TOPROL XL) 100 mg 24 hr tablet TAKE 1 TABLET BY MOUTH TWICE DAILY 0 02/25/20 23 Active blood-glucose sensor (FreeStyle Young 3 Sensor) kitIndications:Ty pe 2 diabetes mellitus without complication Use to check glucose continuously every 14 days 3 each 3 07/28/20 23 Active DULoxetine (Cymbalta) 60 mg capsuleIndication s:Neuropathy due to diabetes mellitus Take 1 capsule (60 mg) by mouth daily. 90 capsule 3 07/28/20 23 Active tirzepatide (Mounjaro) 5 mg/0.5 mL pnijIndications:T ype 2 diabetes mellitus without complication Inject 5 mg under the skin every 7 days. After about 3 doses, notify credit counselor if you are feeling well and we can increase the dose. 2 mL 1 08/02/20 23 Active allopurinol (ZYLOPRIM) 300 mg tablet TAKE 1 TABLET BY MOUTH TWICE DAILY 0 09/01/20 22 023 Discontinued(St op Taking at Discharge) cloNIDine HCl (CATAPRES) 0.2 mg tablet TAKE 1 TABLET BY MOUTH THREE TIMES DAILY 0 11/09/19 23 023 Discontinued(St op Taking at Discharge) cetirizine (ZyrTEC) 10 mg tablet TAKE 1 TABLET BY MOUTH ONCE DAILY NEEDED FOR ALLERGIES 0 10/29/20 22 023 Discontinued(Er ror) colchicine (COLCRYS) 0.6 mg tablet TAKE 1 TABLET BY MOUTH DAILY 0 09/21/20 22 023 Discontinued(St op Taking at Discharge) diclofenac sodium (Voltaren) 1 % gel APPLY TOPICALLY TO THE AFFECTED AREA THREE TIMES DAILY 0 10/21/20 22 023 Discontinued(St op Taking at Discharge) dicyclomine (BENTYL) 10 mg capsule TAKE 1 CAPSULE BY MOUTH EVERY 8 HOURS 0 10/12/20 22 023 Discontinued(St op Taking at Discharge) gabapentin (NEURONTIN) 600 mg tablet TAKE 1 TABLET BY MOUTH IN THE MORNING AND AT NOON AND IN THE EVENING 0 10/21/20 22 023 Discontinued(St op Taking at Discharge) hydrALAZINE (APRESOLINE) 100 mg tablet TAKE 1 TABLET BY MOUTH THREE TIMES DAILY 0 10/01/20 22 023 Discontinued(St op Taking at Discharge) hydroCHLOROthiazi de (MICROZIDE) 12.5 mg capsule 1 capsule (12.5 mg) every morning. 0 11/09/19 23 023 Discontinued HYDROcodone-aceta minophen (NORCO) 7.5 mg-325 mg per tablet TAKE 1 TABLET BY MOUTH EVERY 6 HOURS NEEDED FOR PAIN OR CHRONIC PAIN 0 10/21/20 22 023 Discontinued(St op Taking at Discharge) hydrocortisone 1 % crpe APPLY TWICE DAILY IN AND AROUND THE RECTUM AFTER SITZ BATH 0 09/10/20 22 023 Discontinued(Er ror) hydrocortisone (ANUSOL-HC) 25 mg suppository UNWRAP AND INSERT ONE (1) SUPPOSITORY IN THE RECTUM TWICE A DAY. 0 11/06/19 23 023 Discontinued(Er ror) HumuLIN 70/30 U-100 Insulin 100 unit/mL (70-30) injection 0 11/16/19 23 023 Discontinued(St op Taking at Discharge) Victoza 2-Ze 0.6 mg/0.1 mL (18 mg/3 mL) pnij injection ADMINISTER 1.8 MG UNDER THE SKIN EVERY DAY 0 10/01/20 22 023 Discontinued(Re order) lisinopril (PRINIVIL,ZESTRIL ) 40 mg tablet TAKE 1/2 TABLET BY MOUTH TWICE DAILY 0 10/01/20 22 023 Discontinued(St op Taking at Discharge) lubiprostone (AMITIZA) 24 MCG capsule TAKE 1 CAPSULE BY MOUTH TWICE DAILY 0 03/31/20 22 023 Discontinued(Er ror) metFORMIN (GLUCOPHAGE) 1000 mg tablet TAKE 1 TABLET BY MOUTH IN THE MORNING AND IN THE EVENING WITH MEALS 0 09/21/20 22 023 Discontinued(St op Taking at Discharge) metoprolol tartrate (LOPRESSOR) 100 mg tablet TAKE 1 TABLET BY MOUTH TWICE DAILY 0 11/03/19 23 023 Discontinued(Re order) nitroglycerin (NITROSTAT) 0.[address] 1 TABLET UNDER THE TONGUE EVERY 5 MINUTES FOR CHEST PAIN. 0 09/18/20 22 023 Discontinued(Er ror) BD Devorah 2nd Gen Pen Needle 32 gauge x 5/32" ndle USE DIRECTED. 0 10/05/20 22 023 Discontinued(Re order) rizatriptan (MAXALT-COMMODITY MANAGEMENT SPECIALIST) 5 mg disintegrating tablet 0 08/25/20 22 023 Discontinued(Er ror) spironolactone (ALDACTONE) 25 mg tablet TAKE 1 TABLET BY MOUTH EVERY DAY 0 10/19/20 22 023 Discontinued(St op Taking at Discharge) sucralfate (CARAFATE) 1 g tablet TAKE 1 TABLET BY MOUTH TWICE DAILY 0 08/20/20 22 023 Discontinued(St op Taking at Discharge) insulin syringe-needle U-100 1 mL 31 gauge x 5/16 syrg USE TWICE DAILY WITH MEALS. 0 10/01/20 22 023 Discontinued(St op Taking at Discharge) triamcinolone (KENALOG) 0.1% cream APPLY TOPICALLY TO THE AFFECTED AREA TWICE DAILY 0 08/28/20 22 023 Discontinued(Er ror) BD Insulin Syringe U-500 1/2 mL 31 gauge x 15/64" syrg USE 1 SYRINGE DIRECTED TWICE DAILY WITH MEALS 0 03/03/20 22 023 Discontinued(St op Taking at Discharge) ondansetron (ZOFRAN-ODT) 8 mg disintegrating tabletIndications :Adenocarcinoma of nasopharynx Dissolve 1 tablet (8 mg) on the tongue every 8 (eight) hours as needed for nausea. 30 tablet 0 11/26/19 23 023 Discontinued(Re order) HYDROmorphone (DILAUDID) 2 mg tabletIndications :Adenocarcinoma of nasopharynx Take 1 tablet (2 mg) by mouth every 4 (four) hours as needed (cancer pain). 60 tablet 0 12/02/19 23 023 Discontinued(St op Taking at Discharge) dexamethasone (DECADRON) 2 mg tabletIndications :Adenocarcinoma of nasopharynx Take 1 tablet (2 mg) by mouth twice daily. 60 tablet 0 12/05/19 23 023 Discontinued(Er ror) insulin regular hum U-500 conc (HumuLIN R U-500, Conc, Kwikpen) 500 unit/mL (3 mL) insulin penIndications:Ty pe 2 diabetes mellitus without complication Inject 110 to 160 Units under the skin 3 (three) times a day before meals. 24 mL 3 12/15/19 23 023 Discontinued(Re order) BD Devorah 2nd Gen Pen Needle 32 gauge x 5/32" ndleIndications:T ype 2 diabetes mellitus without complication Inject 1 Device under the skin 3 (three) times a day before meals. 100 each 3 12/15/19 23 023 Discontinued(St op Taking at Discharge) Victoza 2-Ze 0.6 mg/0.1 mL (18 mg/3 mL) pnij injectionIndicati ons:Type 2 diabetes mellitus without complication Inject 0.3 mL (1.8 mg) under the skin daily. 9 mL 3 12/15/19 23 023 Discontinued(Th erapy completed) gabapentin (NEURONTIN) 600 mg tabletIndications :Headache, not otherwise specified Take 1 tablet (600 mg) by mouth every 8 (eight) hours. 90 tablet 0 12/15/19 23 023 Discontinued(St op Taking at Discharge) celecoxib (CeleBREX) 200 mg capsuleIndication s:Headache, not otherwise specified Take 1 capsule (200 mg) by mouth daily. 30 capsule 0 12/16/19 23 023 Discontinued(Th erapy completed) oxyCODONE-acetami nophen (Percocet) 5 mg-325 mg per tabletIndications :Neoplasm related pain (acute) (chronic) Take 1 tablet by mouth every 4 (four) hours as needed for moderate pain. 90 tablet 0 12/15/19 23 023 Discontinued(Re order) metoprolol tartrate (LOPRESSOR) 50 mg tabletIndications :Hypertension Take 1 tablet (50 mg) by mouth twice daily for 30 days. 60 tablet 0 12/15/19 23 023 Discontinued(Re order) fluoride, sodium, (DENTAGEL) 1.1% dental gelIndications:Ad enoid cystic carcinoma of nasopharynx, NOS Apply to teeth daily for 30 days. 56 g 0 12/16/19 23 023 Discontinued(Er ror) insulin regular hum U-500 conc (HumuLIN R U-500, Conc, Kwikpen) 500 unit/mL (3 mL) insulin penIndications:Ty pe 2 diabetes mellitus without complication Inject 110-160 Units under the skin 3 (three) times a day before meals. 24 mL 3 12/15/19 23 023 Discontinued(Re order) pantoprazole (Protonix) 40 mg EC tabletIndications :Gastroesophageal reflux disease Take 1 tablet (40 mg) by mouth every morning before breakfast for 30 days. 30 tablet 0 12/15/19 23 023 Discontinued(St op Taking at Discharge) ondansetron (ZOFRAN) 8 mg tabletIndications :Adenoid cystic carcinoma of nasopharynx, NOS Take 1 tablet (8 mg) by mouth every 8 (eight) hours as needed for nausea or vomiting. 30 tablet 3 12/17/19 23 023 Discontinued(Re order) ondansetron (ZOFRAN-ODT) 8 mg disintegrating tabletIndications :Adenocarcinoma of nasopharynx Dissolve 1 tablet (8 mg) on the tongue every 8 (eight) hours as needed for nausea. 60 tablet 1 12/18/19 23 023 Discontinued sodium chloride (NS) 0.9% flush syringe 10 mLIndications:Nazia noid cystic carcinoma of nasopharynx, NOS Inject 10 mL (1 syringe) into each lumen of central venous catheter daily as directed. 30 each 6 12/23/19 23 023 Discontinued(St op Taking at Discharge) cyclobenzaprine (FLEXERIL) 10 mg tabletIndications :Cancer associated pain Take 1 tablet (10 mg) by mouth 3 (three) times a day as needed for muscle spasms (neck pain). 60 tablet 0 12/31/19 23 023 Discontinued(Re order) pseudoephedrine (Sudafed) 30 mg tabletIndications :Cancer associated pain Take 1 tablet (30 mg) by mouth 2 (two) times a day as needed for congestion. 60 tablet 0 12/31/19 23 023 Discontinued(Er ror) oxyCODONE-acetami nophen (Percocet) 5 mg-325 mg per tabletIndications :Neoplasm related pain (acute) (chronic) Take 1 tablet by mouth every 4 (four) hours as needed for moderate pain. 45 tablet 0 01/02/20 23 023 Discontinued(Er ror) lidocaine (XYLOCAINE) 20 mg/mL (2%) viscous solutionIndicatio ns:Adenocarcinoma of nasopharynx Swish and swallow 5 mL every 6 (six) hours as needed (painful swallowing). 100 mL 3 01/05/20 23 023 Discontinued(St op Taking at Discharge) hydrALAZINE (APRESOLINE) 100 mg tablet Take 1 tablet (100 mg) by mouth 3 (three) times a day. 0 023 Discontinued(St op Taking at Discharge) metFORMIN (GLUCOPHAGE) 1000 mg tablet Take 1 tablet (1,000 mg) by mouth 2 (two) times a day with meals. 0 023 Discontinued(St op Taking at Discharge) spironolactone (ALDACTONE) 25 mg tablet Take 1 tablet (25 mg) by mouth daily. 0 023 Discontinued(St op Taking at Discharge) oxyCODONE-acetami nophen (Percocet) 5 mg-325 mg per tabletIndications :Neoplasm related pain (acute) (chronic) Take 1 tablet by mouth every 4 (four) hours as needed for moderate pain. 0 01/19/20 23 023 Discontinued(Re order) oxyCODONE-acetami nophen (Percocet) 5 mg-325 mg per tabletIndications :Neoplasm related pain (acute) (chronic) Take 1 tablet by mouth every 6 (six) hours as needed for severe pain. 60 tablet 0 01/19/20 23 023 Discontinued(St op Taking at Discharge) cyclobenzaprine (FLEXERIL) 10 mg tabletIndications :Cancer associated pain Take 1 tablet (10 mg) by mouth 3 (three) times a day as needed for muscle spasms (neck pain). 60 tablet 0 01/19/20 23 023 Discontinued( erapy completed) xyloxylin oral suspension (AMB-CMPD)Indicat ions: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 Swish and swallow 10 mL every 6 (six) hours as needed for mouth pain. 480 mL 1 01/19/20 23 023 Discontinued(Re order) sucralfate (CARAFATE) 100 mg/mL suspensionIndicat ions: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 Take 10 mL (1,000 mg) by mouth 4 (four) times a day. 420 mL 0 01/19/20 23 023 Discontinued(Re order) metoprolol tartrate (LOPRESSOR) 50 mg tabletIndications :Hypertension Take 1 tablet (50 mg) by mouth twice daily for 30 days. 60 tablet 0 01/19/20 23 023 Discontinued(Re order) insulin regular hum U-500 conc (HumuLIN R U-500, Conc, Kwikpen) 500 unit/mL (3 mL) insulin penIndications:Ty pe 2 diabetes mellitus without complication Inject 50 to 125 Units under the skin 3 (three) times a day, before meals. Inject as instructed at discharge. 24 mL 3 01/19/20 23 023 Discontinued(Re order) pen needle, diabetic needle Use as directed. 10 each 0 01/19/20 23 023 Discontinued(Re order) sucralfate (CARAFATE) 100 mg/mL suspensionIndicat ions: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 Take 10 mL (1,000 mg) by mouth 4 (four) times a day. 420 mL 0 01/19/20 23 023 Discontinued(Re order) xyloxylin oral suspension (AMB-CMPD)Indicat ions: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 Swish and swallow 10 mL every 6 (six) hours as needed for mouth pain. 480 mL 1 01/19/20 23 023 Discontinued(Re order) metoprolol tartrate (LOPRESSOR) 50 mg tabletIndications :Hypertension Take 1 tablet (50 mg) by mouth twice daily for 30 days. 60 tablet 0 01/19/20 23 023 sucralfate (CARAFATE) 100 mg/mL suspensionIndicat ions: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 Take 10 mL (1,000 mg) by mouth 4 (four) times a day. 420 mL 0 01/19/20 23 023 Discontinued(St op Taking at Discharge) xyloxylin oral suspension (AMB-CMPD)Indicat ions: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 Swish and swallow 10 mL by mouth every 6 (six) hours as needed for mouth pain. 480 mL 1 01/19/20 23 023 Discontinued(Re order) UNABLE TO FIND Compound Drug 0 01/19/20 23 023 Discontinued(St op Taking at Discharge) xyloxylin oral suspension (AMB-CMPD)Indicat ions: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 Swish and swallow 10 mL 2 (two) times a day as needed for mouth pain. 480 mL 1 01/21/20 23 023 Discontinued(St op Taking at Discharge) insulin regular (HumuLIN R Regular U-100 Insuln) 100 units/mL injectionIndicati ons:Type 2 diabetes mellitus with hyperglycemia Inject 5 units to 25 units with meals as needed for blood sugar greater than 150 mg/dL 10 mL 1 02/01/20 23 023 Discontinued(St op Taking at Discharge) insulin regular hum U-500 conc (HumuLIN R U-500, Conc, Kwikpen) 500 unit/mL (3 mL) insulin penIndications:Ty pe 2 diabetes mellitus without complication Inject 50 to 125 Units under the skin 3 (three) times a day, before meals. Inject as instructed at discharge. 24 mL 3 02/01/20 023 Discontinued(Re order) pen needle, diabetic needle Use as directed. 10 each 0 02/01/20 23 023 Discontinued(St op Taking at Discharge) insulin syringe-needle U-100 1 mL 31 gauge x 5/16 syrgIndications:T ype 2 diabetes mellitus with hyperglycemia USE DIRECTED FOUR TIMES DAILY 360 each 02/03/20 023 Discontinued(St op Taking at Discharge) gabapentin (NEURONTIN) 800 mg tabletIndications :Chronic pain Take 1 tablet (800 mg) by mouth every 8 (eight) hours. 90 tablet 0 02/02/20 023 Discontinued oxyCODONE-acetami nophen (PERCOCET) 7.5-325 mg per tabletIndications :Chronic pain Take 1 tablet by mouth every 6 (six) hours as needed for severe pain. 30 tablet 0 02/02/20 023 Discontinued(Do se adjustment) hydrALAZINE (APRESOLINE) 100 mg tabletIndications :hypertension Take 1 tablet (100 mg) by mouth 3 (three) times a day. 0 023 Discontinued(St op Taking at Discharge) hydroCHLOROthiazi de (MICROZIDE) 12.5 mg capsule Take 1 capsule (12.5 mg) by mouth every morning. 0 023 Discontinued(St op Taking at Discharge) cloNIDine HCl (CATAPRES) 0.2 mg tablet Take 1 tablet (0.2 mg) by mouth 3 (three) times a day as needed. 0 023 Discontinued(St op Taking at Discharge) oxyCODONE-acetami nophen (Percocet) 7.5-325 mg per tabletIndications :Neoplasm related pain (acute) (chronic) Take 1 tablet by mouth every 6 (six) hours as needed for severe pain for up to 45 days. 45 tablet 0 02/13/20 23 023 Discontinued(St op Taking at Discharge) enoxaparin (LOVENOX) 120 mg/0.8 mL prefilled syringeIndication s:Deep venous thrombosis <Unspecified side> Inject 0.8 mL (120 mg) under the skin every 12 (twelve) hours. 60 each 0 02/13/20 23 023 Discontinued levoFLOXacin (LEVAQUIN) 750 mg tabletIndications :Adenoid cystic carcinoma of nasopharynx, NOS,Deep venous thrombosis <Unspecified side> Take 1 tablet (750 mg) by mouth daily for 3 days. 3 tablet 0 02/17/20 23 023 gabapentin (NEURONTIN) 800 mg tabletIndications :Chronic pain TAKE 1 TABLET(800 MG) BY MOUTH EVERY 8 HOURS 90 tablet 0 03/02/20 23 023 Discontinued(Re order) cefPODoxime (VANTIN) 200 mg tablet Take 1 tablet (200 mg) by mouth twice daily. 0 03/14/20 23 023 Discontinued( erapy completed) apixaban (Eliquis) 5 mg tabletIndications :Acute thrombosis of right axillary vein,Bilateral acute thrombosis of basilic veins,Thrombosis of left cephalic vein,USP use of anticoagulant Take 1 tablet (5 mg) by mouth every 12 (twelve) hours. 84 tablet 0 03/31/20 23 023 Discontinued( erapy completed) metFORMIN (GLUCOPHAGE) 1000 mg tablet TAKE 1 TABLET BY MOUTH IN THE MORNING AND IN THE EVENING WITH MEALS 0 03/10/20 23 023 Discontinued( erapy completed) oxyCODONE-acetami nophen (PERCOCET) 2.5-325 mg per tablet 0 03/20/20 23 023 Discontinued(Du plicate order) predniSONE (DELTASONE) 10 mg tablet TWICE DAILY 0 03/26/20 23 023 Discontinued(Ot her ) hydrocortisone (CORTEF) 10 mg tabletIndications :Abnormal cortisol Take 2 tablets (20 mg) by mouth daily with breakfast AND 1 tablet (10 mg) daily with dinner. 90 tablet 1 05/11/20 23 023 Discontinued metFORMIN (GLUCOPHAGE) 1000 mg tabletIndications :Type 2 diabetes mellitus with hyperglycemia Take 1 tablet (1,000 mg) by mouth 2 (two) times a day with meals. 180 tablet 3 05/26/20 23 023 Discontinued semaglutide (Ozempic) 1 mg/dose (4 mg/3 mL) pnijIndications:T ype 2 diabetes mellitus with hyperglycemia Inject 1 mg under the skin every 7 days. 3 mL 0 05/26/20 23 023 Discontinued(Do se adjustment) semaglutide 2 mg/dose (8 mg/3 mL) pnijIndications:T ype 2 diabetes mellitus with hyperglycemia Inject 2 mg under the skin every 7 days. 3 mL 5 06/22/20 23 023 Discontinued(Al ternate therapy) hydrocortisone (CORTEF) 10 mg tabletIndications :Abnormal cortisol TAKE 2 TABLETS FOR PAIN DAILY WITH BREAKFAST AND 1 TABLET BY MOUTH WITH DINNER 90 tablet 0 07/22/20 23 023 Discontinued( erapy completed) Active Problems Problem Noted Date Diagnosed Date USP use of anticoagulant 03/31/2023 Acute thrombosis of right axillary vein 02/09/20 Bilateral acute thrombosis of basilic veins 01/30 Thrombosis of left cephalic vein 02/08/2023 Febrile neutropenia 02/06/2023 Shortness of breath 02/06/2023 Central line associated bloodstream infection Disorder of fluid AND/OR electrolyte 02/06/2023 Other secondary thrombocytopenia 02/06/2023 Hematochezia 01/27/2023 Abdominal pain, epigastric 01/26/2023 Other severe protein-calorie malnutrition 2022 Insulin resistance 01/18/2023 History of fall 01/12/2023 Type 2 diabetes mellitus with hyperglycemia 12/30 Malnutrition of moderate degree 01/12/2023 Mucositis due to antineoplastic therapy 01/12/20 23 Swallowing painful 01/11/2023 Current use of insulin 12/10/2022 Adverse effect of glucocorticoids and synthetic analogues 12/10/2022 Headache 12/09/2022 Adenoid cystic carcinoma of nasopharynx, 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 Cancer Staging:Clinical stage from 10/16/2022:Stage WINDY(cT4, cN0, cM0) - Unsigned Essential hypertension 02/15/2020 Gastroesophageal reflux disease 07/28/2018 Other hyperlipidemia 07/28/2018 Severe protein-calorie malnutrition Resolved Problems Problem Noted Date Diagnosed Date Resolved Date Intractable nausea and vomiting 02/05/2023 05/25/2023 Hemoglobin A1c greater than 10 percent indicating poor diabetic control 01/12/2023 023 terminologist current use of systemic steroid 12/10/2022 05/25/2023 Encounters Date Type Department Care Team Description 09/21/2023 [facility]phone [facility] [address] [place] [address], [address] [place] [address] No Andrade MD 09/13/2023 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 MD Kulwant Moses[address] [address] Lindy Montenegro PA Adenoid cystic carcinoma of nasopharynx, NOS 09/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 Travel 09/10/2023 Telephone [facility] - Radiation Oncology [address] [place] [address] Lindy Montenegro PA 08/30/2023 10:30 AM CDT Procedure visit Endocrine [address], [address] [place] [address] Eliseo Crum MD Type 2 diabetes mellitus with hyperglycemia (Primary Dx); Current use of insulin; Hemoglobin A1c greater than 10 percent indicating poor diabetic control; Alanine aminotransferase above reference range; Adult BMI 60-69.9 08/16/[address] [address] Lorena Hdez APRN Adenoid cystic carcinoma of nasopharynx, NOS 08/02/2023 Orders Only [facility] [address] [place] [address], 6th [place] [address] Marily Garcia APRN Type 2 diabetes mellitus without complication (Primary Dx) 07/28/2023 9:15 AM CDT Telemedicine Endocrine [address], 6th [facility] [address] No Andrade MD Type 2 diabetes mellitus without complication (Primary Dx); Neuropathy due to diabetes mellitus 07/22/2023 [facility]ation [facility] [address] Main Bldg, 9th [place] [address] Bridget Allison, RN 07/20/2023 Refill [facility] [address] [place] [address] Main Bldg, 6th [place] [address] Marily Garcia, BORIS Abnormal cortisol 07/06/2023 Telephone [facility] [address] [place] [address] Main dg, 6th [place] [address] Marily Garcia APRN 07/02/2023 Orders Only [facility] Surgical Oncology [address] [place] [address] Main Bldg, 10th Floor, [place] [address] Red Berman APRN Adenocarcinoma of nasopharynx (Primary Dx) 06/22/2023 10:00 AM CDT Procedure visit [facility] [address] [place] [address] Main [facility], 6th [place] [address] No Andrade MD Type 2 diabetes mellitus with hyperglycemia (Primary Dx) 06/22/2023 Orders Only [facility] [address] [place] [address] Main dg, 6th [place] [address] No Andrade MD Type 2 diabetes mellitus with hyperglycemia (Primary Dx) 06/21/2023 9:00 AM CDT Telephone Endocrine [address] Main [facility], 6th [place] [address] Angela Lopes APRN Needle, Pamela A, RN 06/17/2023 1:00 PM CDT Treatment MD [facility] [place] - Speech Pathology [address] [place] [address] Monico Poole, Sheba Will CCC-GRAIN TRIMMER Dysarthria (Primary Dx); Oropharyngeal dysphagia 06/17/2023 Documentation MD [facility] [place] [facility]ology [address] [place] [address] Sheba Olivarez CCC-GRAIN TRIMMER 06/17/2023 Documentation MD [facility] [place] - Speech Pathology [address] [place] [address] Sheba Olivarez, SWAPNA-GRAIN TRIMMER 06/17/2023 Travel 06/16/2023 Telephone [facility] [address] [place] [address] Main dg, 10th Floor, [place] [address] Red Berman, BUSINESS COMMUNICATIONS INSTRUCTOR 06/08/2023 Documentation [facility] [address] [place] [address] Main dg, 6th [place] [address] Jenna Alvarado, RN 06/06/2023 Rohith GRIFFIN [facility] [address] [place] [address] Lorena Hdez, BORIS Adenoid cystic carcinoma of nasopharynx, NOS 05/26/2023 3:30 PM CDT Telemedicine [facility] [address] [place] [address] Main [facility], 6th [place] [address] Marily Garcia, BORIS Type 2 diabetes mellitus with hyperglycemia (Primary Dx); Abnormal cortisol 05/26/2023 Telephone [facility] [address] [place] [address] Main [facility], 6th [place] [address] Marily Garcia APRN 05/26/2023 Telephone [facility] [address] [place] [address] Main dg, 6th [place] [address] Jenna Alvarado, JCARLOS 05/25/2023 Orders Only [facility] [address] [place] [address] Main dg, 6th [place] [address] Marily Garcia, BORIS Type 2 diabetes mellitus with hyperglycemia (Primary Dx); Abnormal cortisol; Long-term (current) use of insulin 05/24/2023 11:00 AM CDT Telephone [facility] [address] [place] [address] Main dg, 6th [place] [address] No Andrade MD Needle, Pamela A RN 05/21/2023 Documentation [facility] [address] [place] [address] Main Bldg, 6th [place] [address] Akil Edwards, RN 05/21/2023 Documentation [facility] [address] [place] [address] Main [facility], 4th [place] [address] Nabil Randall H 05/18/2023 2:00 PM CDT Telephone [facility] [address] [place] [address], [facility] [place] [address] No Andrade MD Needle, Pamela A, RN 05/11/2023 Telephone [facility] [address] [place] [address], 6th [place] [address] Marily Garcia APRN 05/02/2023 Telephone [facility] [address] [place] [address], [facility] [place] [place] [address] No Andrade MD 04/22/2023 3:40 PM CDT Follow-Up [facility] - Thoracic Medicine [address] [place] [address] Vaibhav Rosario MD Adenoid cystic carcinoma of nasopharynx, NOS 04/22/2023 2:30 PM CDT Follow-Up [facility] - Radiation Oncology [address] [place] [address] Winter Luu MD Adenoid cystic carcinoma of nasopharynx, NOS 04/22/2023 12:15 PM CDT Ancillary Procedure [address] [address] Winter Luu MD Adenoid cystic carcinoma of nasopharynx, NOS 04/22/2023 Travel 04/09/2023 Refill [facility] [address] [place] [address], [facility] [place] [address] Kyung Thomas, meter changes records clerk pain 04/08/2023 Refill [facility] [address] [place] [address] Main [facility], [facility] [place] [address] Miguel Gordon MD Chronic pain 03/31/2023 10:30 AM CDT Office Visit Internal Medicine Center - Hematology [address] [facility], 6th [place] [address] Rosana Harkins MD USP use of anticoagulant (Primary Dx); Adenoid cystic carcinoma of nasopharynx, NOS; Deep venous thrombosis <Unspecified side>; Acute thrombosis of right axillary vein; Bilateral acute thrombosis of basilic veins; Thrombosis of left cephalic vein 03/31/2023 Travel 03/26/2023 Telephone MD [facility] [place] - Pain Medicine [address] [facility] [address] [place] [address] Viry Gaitan RN 03/23/2023 Telephone MD [facility] Radiation Oncology [address] [place] [address] Lindy Montenegro PA 03/23/2023 Orders Only MD [facility] [place] - Radiation Oncology [address] [place] [address] Lindy Montenegro PA 03/19/2023 1:30 PM CDT Telemedicine Endocrine Center [address] [facility], 6th [place] [address] Angela Lopes APRN Type 2 diabetes mellitus without complication (Primary Dx) 03/18/2023 Telephone MD [facility] [address] [address] Vaibhav Rosario MD 03/16/2023 Orders Only MD [facility] [address] [address] Lorena Hdez APRN Adenoid cystic carcinoma of nasopharynx, NOS (Primary Dx) 03/12/2023 11:00 AM CDT Nutrition Clinical Nutrition For your Nutrition appointment location directions please call: Kenya Agarwal MD Martin, Cathy A, RD 03/11/2023 1:30 PM CDT Infusion [facility] - Infusion [address] [place] [address] 4th [place] [address] Lorena Hdez, BORIS Adenoid cystic carcinoma of nasopharynx, NOS (Primary Dx) 03/11/2023 11:20 AM CDT Follow-Up [address] [place] [address] Lorena Hdez APRN Adenoid cystic carcinoma of nasopharynx, NOS (Primary Dx) 03/11/2023 Travel 03/09/[address] [address] Lorena Hdez, BORIS 03/04/2023 10:00 AM CDT Nutrition Clinical Nutrition For your Nutrition appointment location directions please call: Kenya Agarwal MD Martin, Cathy A, RD 03/04/2023 Orders Only MD [facility] [address] [address] Lorena Hdez APRN 03/04/2023 Telephone [facility] Thoracic Medicine [address] [place] [address] Tita Kwon RN 03/04/2023 Orders Only [facility] [address] [place] [address], 4th [place] [address] Miguel Gordon MD Cancer associated pain (Primary Dx) 03/03/2023 11:40 AM CDT Follow-Up [facility] Thoracic Medicine [address] [place] [address] Vaibhav Rosario MD Adenoid cystic carcinoma of nasopharynx, NOS; Deep venous thrombosis <Unspecified side> 03/03/2023 Refill [facility] [address] [place] [address] Main [facility], 4th [place] [address] Cony Santillan APRN Chronic pain 03/03/2023 Travel 03/02/2023 Refill [facility] [address] [facility] Main Bldg, 4th [place] [address] Cony Santillan APRN Chronic pain 02/26/2023 8:30 AM CDT Telemedicine MD [facility] [place] - Pain Medicine [address] [facility] [address] [place] [address] Miguel Gordon MD Chronic pain (Primary Dx) 02/25/2023 10:00 AM CDT Nutrition Clinical Nutrition For your Nutrition appointment location directions please call: Kenya Agarwal MD Martin, Cathy A, ADAM 02/19/2023 Telephone MD [facility] [place] - Radiation Oncology [address] [place] [address] Anthony Lancaster RN 02/18/2023 10:00 AM CDT Nutrition Clinical Nutrition For your Nutrition appointment location directions please call: Kenya Agarwal MD Martin, Cathy A, ADAM 02/12/2023 4:15 PM CDT Clinical Support MD [facility] [place] - Radiation Oncology [address] [place] [address] Winter Luu MD 02/12/2023 7:00 AM CDT - 02/12/2023 11:59 PM CDT Hospital Encounter Radiation Treatment Center [facility] [facility] [place] [address] Kenya Agarwal MD Discharge Disposition: Home 02/12/2023 Documentation Radiation Treatment Center [facility] [facility] Main [place] [address] Winter Luu MD 02/12/2023 Orders Only MD [facility] [place] - Radiation Oncology [address] [place] [address] Winter Luu MD Adenocarcinoma of nasopharynx (Primary Dx); Adenoid cystic carcinoma of nasopharynx, NOS 02/12/2023 Orders Only [facility] [address] [place] [address], 4th [place] [address] Elvis Bruce MD Neoplasm related pain (acute) (chronic) (Primary Dx); Chronic pain 02/10/2023 Orders Only [facility] Speech [facility]ology [address] [place] [address], 10th [place] [address] Charla Solis, [facility] Oropharyngeal dysphagia (Primary Dx) 02/08/2023 6:00 AM CDT - 02/08/2023 11:59 PM CDT Hospital Encounter [facility] [address] [place] [address] [place] [address] Kenya Agarwal MD Discharge Disposition: Home 02/06/2023 Travel 02/05/2023 4:49 PM CDT - 02/16/2023 4:40 PM CDT Hospital Encounter MAIN [address] [address] Deneen Guevara MD Wattana, Monica, MD Wechsler, Adriana, MD Viets, Jayne, MD Nguyen, Branden Calix., Derrick Salinas MD Mohammed, MD Phyllis See Michelle, MD Intractable nausea and vomiting (Primary Dx); Type 2 diabetes mellitus with hyperglycemia; Swallowing painful; Dyspnea; Adenoid cystic carcinoma of nasopharynx, NOS; Chronic pain; Deep venous thrombosis <Unspecified side>; Type 2 diabetes mellitus without complication; Shortness of breath Discharge Disposition: Home 02/05/2023 Telephone MD [facility] Thoracic Medicine [address] [place], [place] [id number] Vaibhav Rosario MD ... (The patient's son called that is not feeling well she feels cold and hyperventilating little bit, but the son said she doing okay but wants to know should she come see Dr.Cox or just take her Emergency Room/) 02/04/2023 10:40 AM CDT Follow-Up MD [facility] - Thoracic Medicine [address] [place] [address] Vaibhav Rosario MD Adenoid cystic carcinoma of nasopharynx, NOS 02/04/2023 9:45 AM CDT Clinical Support MD [facility] - Radiation Oncology [address] [place] [address] Winter Luu MD Adenocarcinoma of nasopharynx (Primary Dx); Adenoid cystic carcinoma of nasopharynx, NOS 02/04/2023 Travel 02/03/2023 11:00 AM CDT Infusion MD [facility] - Infusion [address] [place] [address] Vaibhav Rosario MD Adenoid cystic carcinoma of nasopharynx, NOS (Primary Dx) 02/03/2023 Orders Only MD [facility] [address] [place] [address] Lorena Hdez, BUSINESS COMMUNICATIONS INSTRUCTOR 02/03/2023 Travel 02/02/2023 Travel 01/31/2023 [facility] Internal Medicine Center [address] [place] [address] Bldg, 9th [place] [address] Glenda Madrigal, BUSINESS COMMUNICATIONS INSTRUCTOR Type 2 diabetes mellitus with hyperglycemia (Primary Dx) 01/28/2023 Telephone MD [facility] [place] - Radiation Oncology [address] [place] [address] Felisa Castillo, RN 01/28/2023 Orders Only MD [facility] [address] [address] Lorena Hdez, BUSINESS COMMUNICATIONS INSTRUCTOR 01/26/2023 4:06 PM CDT - 02/01/2023 6:28 PM CDT Hospital Encounter MAIN P09B [address] [place] [address] Wattana, Felisa, MD Chaftari, Jad, MD VietAmanda pierce MD Manzano, Joanna-Grace, MD Halm, Josiah, MD Simbaqueba Clavijo, Cesar, MD Chronic pain (Primary Dx); Swallowing painful; Abdominal pain, epigastric; Rectal hemorrhage; Mucositis due to antineoplastic therapy; Adenoid cystic carcinoma of nasopharynx, NOS; Hypomagnesemia; Severe protein-calorie malnutrition; Encounter for adjustment and management of vascular access device; Type 2 diabetes mellitus with hyperglycemia; Type 2 diabetes mellitus without complication; Hematochezia Discharge Disposition: Home with Home-Health or Physical Therapy 01/26/2023 Travel 01/26/2023 [facility] [address] [place] [address] Felisa Castillo RN 01/26/2023 [facility] [address] [place] [address] Felisa Castillo RN 01/25/2023 11:30 AM CDT Nutrition Clinical Nutrition For your Nutrition appointment location directions please call: Kenya Agarwal MD Martin, Cathy A, RD 01/25/2023 6:00 AM CDT - 01/25/2023 11:59 PM CDT Hospital Encounter Radiation Treatment Center [address] [place] [address] [place] [address] Kenya Agarwal MD Discharge Disposition: Home 01/25/2023 Telephone MD [facility] Radiation Oncology [address] [place] [address] Felisa Castillo RN 01/22/2023 10:30 AM CDT Nutrition Clinical Nutrition For your Nutrition appointment location directions please call: Kenya Agarwal MD Martin, Cathy A, ADAM 01/22/2023 Travel 01/21/2023 8:45 AM CDT Infusion MD [facility] [address] [place] [address] Lorena Hdez APRN Adenoid cystic carcinoma of nasopharynx, NOS (Primary Dx) 01/21/2023 8:00 AM CDT Follow-Up MD [facility] - Thoracic Medicine [address] [place] [address] Vaibhav Rosario MD Adenoid cystic carcinoma of nasopharynx, NOS (Primary Dx) 01/21/2023 Travel 01/20/2023 11:20 AM CDT Consult MD [facility] [place] - Pain Medicine [address] [place] [address] Rogerio Kramer MD USP current use of opiate analgesic (Primary Dx); Adenocarcinoma of nasopharynx; 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; Neoplasm related pain (acute) (chronic) 01/20/2023 Documentation [facility] [address] [place] [address] Main [facility], 4th [place] [address] Randall Ferrer 01/20/2023 Travel 01/19/2023 3:30 PM CDT Clinical Support MD [facility] [place] - Radiation Oncology [address] [place] [address] [address] [place] [address] Winter Luu MD 01/19/2023 Travel 01/14/2023 Orders Only [facility] - [facility]ology [address] [place] [address] Main dg, 10th [place] [address] Mukund Gorman [facility] Dysphagia, oropharyngeal phase (Primary Dx) 01/12/2023 [facility] Internal Medicine Center [address] [place] [address] Main dg, 9th [place] [address] Karen Ordaz MD Hypertension 01/11/2023 7:31 PM CDT - 01/18/2023 7:34 PM CDT Hospital Encounter MAIN [address] [place] [address] Reva Rajput MD Cameron, Brian, MD Nguyen, Chung ThiMD Lee Elias [place], DO Halm, Josiah, MD Headache, not otherwise specified (Primary Dx); Dehydration; Mucositis; Type 2 diabetes mellitus without complication; Current use of insulin; Adenoid cystic carcinoma of nasopharynx, NOS; Cancer associated pain; Malnutrition of moderate degree; Hemoglobin A1c greater than 10 percent indicating poor diabetic control; Type 2 diabetes mellitus with hyperglycemia; History of fall; Swallowing painful; 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; Adverse effect of glucocorticoids and synthetic analogues, subsequent encounter; terminologist current use of systemic steroid; Hyperlipidemia, not otherwise specified; Gastroesophageal reflux disease; Essential hypertension; Mucositis (ulcerative) due to antineoplastic therapy; Neoplasm related pain (acute) (chronic); Hypertension; 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; Insulin resistance Discharge Disposition: Home with Home-Health or Physical Therapy 01/11/2023 Travel 01/11/2023 Telephone MD [facility] [place] - Radiation Oncology [address] [place] [address] Felisa Castillo RN 01/08/2023 10:00 AM TRUCK SHOP MECHANIC Nutrition Clinical Nutrition For your Nutrition appointment location directions please call: Kenya Agarwal MD Martin, Cathy A, RD 01/08/2023 Travel 01/07/2023 9:00 AM TRUCK SHOP MECHANIC Infusion MD [facility] [place] [facility] Infusion [address] [place] [address] Lorena Hdez APRN Adenoid cystic carcinoma of nasopharynx, NOS (Primary Dx) 01/07/2023 8:40 AM TRUCK SHOP MECHANIC Follow-Up MD [facility] [address] [address] Lorena Hdez APRN Adenoid cystic carcinoma of nasopharynx, NOS (Primary Dx) 01/07/2023 Travel 01/06/2023 11:00 AM TRUCK SHOP MECHANIC Infusion MD [facility] [place] - Infusion [address] [place] [address] Lorena Hdez APRN Adenoid cystic carcinoma of nasopharynx, NOS (Primary Dx) 01/06/2023 Travel 01/05/2023 Travel 01/04/2023 2:00 PM TRUCK SHOP MECHANIC [facility] [address] [place] [address] Winter Luu MD Adenocarcinoma of nasopharynx (Primary Dx) 01/04/2023 10:45 AM TRUCK SHOP MECHANIC Infusion MD [facility] [place] - Infusion [address] [place] [address] Lorena Hdez APRN Adenoid cystic carcinoma of nasopharynx, NOS (Primary Dx) 01/04/2023 Travel 01/01/2023 9:00 AM TRUCK SHOP MECHANIC Infusion MD [facility] [place] - Infusion [address] [place] [address] Lorena Hdez APRN Adenoid cystic carcinoma of nasopharynx, NOS (Primary Dx) 01/01/2023 8:40 AM TRUCK SHOP MECHANIC Follow-Up MD [facility] Thoracic Medicine [address] [place] [address] Vaibhav Rosario MD Adenoid cystic carcinoma of nasopharynx, NOS (Primary Dx); Neoplasm related pain (acute) (chronic) 01/01/2023 Refill MD [facility] Pain Medicine [address] [place] [address] Brittni Guardado RN Neoplasm related pain (acute) (chronic) 01/01/2023 Travel 12/31/2022 Telephone MD [facility] Thoracic Medicine [address] [place] [address] Tita Kwon RN Pain med request and nausea - missed treatment 12/31/2022 Orders Only MD [facility] [address] [address] Lorena Hdez APRN Adenoid cystic carcinoma of nasopharynx, NOS (Primary Dx) 12/30/2022 9:33 AM TRUCK SHOP MECHANIC - 12/30/2022 11:59 PM TRUCK SHOP MECHANIC Hospital Encounter [facility] [address] [place] [address] Main Bldg, 4th [place] [address] Miguel Gordon MD Cancer associated pain (Primary Dx); Headache, not otherwise specified Discharge Disposition: Home 12/30/2022 Travel 12/29/2022 8:00 AM TRUCK SHOP MECHANIC - 12/29/2022 11:59 PM TRUCK SHOP MECHANIC Hospital Encounter Main [facility] [address] [facility] Main Bldg, 7th [place] [address] Suzanne Mcgrath MD Adenocarcinoma of nasopharynx; Sixth (abducent) nerve palsy, left eye; Diplopia; Corneal anesthesia <Left side>; Disorder of trigeminal nerve, not otherwise specified Discharge Disposition: Home 12/29/2022 Travel 12/28/2022 2:00 PM TRUCK SHOP MECHANIC Clinical Support MD [facility] [place] - Radiation Oncology [address] [place] [address] Winter Luu MD 12/28/2022 10:00 AM TRUCK SHOP MECHANIC Nutrition Clinical Nutrition For your Nutrition appointment location directions please call: Kenya Agarwal MD Martin, Cathy A, RD 12/28/2022 Travel 12/25/2022 Travel 12/24/2022 8:45 AM TRUCK SHOP MECHANIC Infusion MD [facility] [place] - Infusion [address] [place] [address] Lorena Hdez APRN Adenoid cystic carcinoma of nasopharynx, NOS (Primary Dx) 12/24/2022 8:20 AM TRUCK SHOP MECHANIC Follow-Up MD [facility] - Thoracic Medicine [address] [place] [address] Vaibhav Rosario MD Adenoid cystic carcinoma of nasopharynx, NOS 12/24/2022 Telephone MD [facility] [place] - Radiation Oncology [address] [place] [address] Felisa Castillo RN 12/24/2022 Telephone MD [facility] Head & Neck Surgery [address] [place] [address] Kenya Agarwal MD Appointment 12/24/2022 Telephone MD [facility] Thor[facility] Medicine [address] [place] [address] Tita Kwon, RN 12/24/2022 Telephone MD [facility] Thoracic Medicine [address] [place] [address] Tita Kwon, RN 12/24/2022 Telephone MD [facility] [place] - Infusion [address] [place] [address] Vaibhav Rosario MD Medication Problem 12/24/2022 Travel 12/24/2022 Orders Only MD [facility] Thoracic Medicine [address] [place] [address] Vaibhav Rosario MD 12/23/2022 10:15 AM TRUCK SHOP MECHANIC Clinical Support [facility] [address] [facility], 8th Floor [place] [address] Winter Luu MD [place], [place], [place] Suspected COVID-19 (Primary Dx); Adenocarcinoma of nasopharynx 12/23/2022 9:30 AM TRUCK SHOP MECHANIC - 12/23/2022 11:59 PM TRUCK SHOP MECHANIC Hospital Encounter [facility] [facility] 9th [place] [address] Otilia Luciano, WALIS Adenoid cystic carcinoma of nasopharynx, NOS Discharge Disposition: Home 12/23/2022 Documentation Radiation Treatment Center [address] [facility] [place] [address] Winter Luu MD 12/23/2022 Telephone MD [facility] Thoracic Medicine [address] [place] [address] Vaibhav Rosario MD Results (Test note ) 12/23/2022 Telephone MD [facility] [place] [facility] Radiation Oncology [address] [place] [address] Tita Kwon, RN Results (Test note-per Daniela request) 12/23/2022 Travel 12/23/2022 Orders Only [address] [address] Lorena Hdez, BORIS Adenoid cystic carcinoma of nasopharynx, NOS (Primary Dx) 12/18/2022 Orders Only [facility] - Radiation Oncology [address] [place] [address] Lindy Montenegro PA 12/18/2022 Orders Only [facility] - Radiation Oncology [address] [place] [address] Lindy Montenegro PA Adenocarcinoma of nasopharynx 12/17/2022 8:00 AM TRUCK SHOP MECHANIC Clinical Support [facility] - Radiation Oncology [address] [place] [address] Kenya Agarwal MD Lawrence, Holly D, RN 12/17/2022 Documentation Radiation Treatment [facility] [place] [address] Winter Luu MD 12/17/2022 [facility]ation [facility] [address] Main Bldg near [facility] [place] [address] Winter Luu MD 12/17/2022 Documentation [facility] [address] Main [place] [address] Winter Luu MD 12/17/2022 Orders Only [address] [address] Lorena Hdez APRN Adenoid cystic carcinoma of nasopharynx, NOS (Primary Dx) 12/17/2022 Travel 12/17/2022 Orders Only [facility] - Radiation Oncology [address] [place] [address] Winter Luu MD 12/16/2022 Orders Only MD [facility] [place] - Radiation Oncology [address] [address] Winter Luu MD Adenocarcinoma of nasopharynx (Primary Dx) 12/16/2022 Telephone MD [facility] [address] [place] [address] Felisa Castillo, RN 12/16/2022 Telephone Endocrine Center [address] [facility] Main dg, 6th [place] [address] Rosmery Dickinson, RD 12/15/2022 8:42 AM TRUCK SHOP MECHANIC - 12/15/2022 11:59 PM TRUCK SHOP MECHANIC Hospital Encounter Oral Oncology [facility] [facility] Main dg, 9th [place] [address] Kenya Agarwal MD Encounter for observation for other suspected disease ruled out Discharge Disposition: Home 12/15/2022 Refill MD [facility]cology [address] [place] [address] Lindy Montenegro PA Adenocarcinoma of nasopharynx 12/15/2022 Orders Only [facility] [address] [place] [address] Main dg, 4th [place] [address] Rogerio Kramer MD Neoplasm related pain (acute) (chronic) (Primary Dx) 12/15/2022 Orders Only [facility] [address] [place] [address] Main dg, 4th [place] [address] Rogerio Kramer MD 12/15/2022 Orders Only [facility] Op[facility] [address] [place], [place] [address]dg, 9th [place] [address] Maya Osman, OD Sixth (abducent) nerve palsy, left eye (Primary Dx) 12/15/2022 Ophth Exam [facility] [address] [place] [address] dg, 9th [place] [address] Maya Osman OD 12/14/2022 Orders Only Oral Oncology [address] [facility] Main [facility], 9th [place] [address] Wilder Soliz MD Encounter for observation for other suspected disease ruled out (Primary Dx) 12/11/2022 Telephone Oral Oncology [address] [facility] Main dg, 9 [place] [address] Triston Gomez RN 12/10/2022 Travel 12/10/2022 Orders Only Oral Oncology [address] [facility] Main dg, 9 [place] [address] Wilder Soliz MD Encounter for observation for other suspected disease ruled out (Primary Dx) 12/09/2022 9:01 PM TRUCK SHOP MECHANIC - 12/15/2022 7:30 PM [facility] Encounter MAIN P04A 1515 [place] [address] Mer Milian MD Cameron, Brian, MD Yeung, MD Tila Ardon Haider, MD Manzano, Joanna-Grace, MD Koom-Dadzie, Kwame, MD Brito-Dellan, Norman, MD Leung, MD Karen Type 2 diabetes mellitus without complication (Primary Dx); Adenoid cystic carcinoma of nasopharynx, NOS; Headache; Blurring of visual image; Adenocarcinoma of nasopharynx; Encounter for observation for other suspected disease ruled out; Headache, not otherwise specified; Diplopia; Hypertension; Gastroesophageal reflux disease Discharge Disposition: Home 12/08/2022 Telephone MD [facility] [place] - Radiation Oncology [address] [address] Lindy Montenegro PA 12/08/2022 Orders Only MD [facility] [address] [place] [address] Lorena Hdez APRN Adenoid cystic carcinoma of nasopharynx, NOS (Primary Dx) 12/05/2022 Telephone MD [facility] [address] [address] Winter Luu MD 12/05/2022 Orders Only MD [facility] [place] - Radiation Oncology [address] [place] [address] Winter Luu MD Adenocarcinoma of nasopharynx (Primary Dx) 12/04/2022 10:55 AM TRUCK SHOP MECHANIC - 12/04/2022 11:59 PM TRUCK SHOP MECHANIC Hospital Encounter Matthew Nelson MD Hess, Jennifer Leigh, BUSINESS COMMUNICATIONS INSTRUCTOR Discharge Disposition: Home 12/04/2022 Telephone MD [facility] [place] - Head & Neck Surgery [address] [place] [id number] Red Berman, BUSINESS COMMUNICATIONS INSTRUCTOR 12/04/2022 Multidisciplinary Visit MD [facility] - [facility] Ne[facility] Surgery [address] [place] [address] Red Berman, BUSINESS COMMUNICATIONS INSTRUCTOR 12/04/2022 Telephone MD [facility] - Radiation [facility]cology [address] [place] [address] Maria Luz Cochran, RN 12/02/2022 Orders Only MD [facility] [place] - Radiation Oncology [address] [place] [address] Lindy Montenegro PA Adenocarcinoma of nasopharynx (Primary Dx) 12/02/2022 Orders Only MD [facility] [place] - Radiation Oncology [address] [place] [address] Winter Luu MD Adenocarcinoma of nasopharynx (Primary Dx) 11/30/2022 8:15 AM TRUCK SHOP MECHANIC Ancillary Procedure [facility] MRI 1220 [facility], 4th [place] [address] Lorena Hdez, BUSINESS COMMUNICATIONS INSTRUCTOR Adenocarcinoma of nasopharynx 11/30/2022 Travel 11/27/2022 12:00 PM TRUCK SHOP MECHANIC Ancillary Procedure [facility] [address] [place] [address] Lindy Montenegro PA Adenocarcinoma of nasopharynx; 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 11/27/2022 Travel 11/26/2022 11:00 AM TRUCK SHOP MECHANIC Consult MD [facility] - Thoracic Medicine [address] [place] [address] Vaibhav Rosario MD Adenocarcinoma of nasopharynx 11/26/2022 10:00 AM TRUCK SHOP MECHANIC Consult MD [facility] [address] [place] [address] Winter Luu MD Adenocarcinoma of nasopharynx; 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 11/26/2022 Travel 11/24/2022 Lab Requisition [facility] David Nunez MD Xu, Ya, MD Discharge Disposition: Home 11/23/2022 Telephone MD [facility] [address] [address] Ofe Bardales RN 11/22/2022 Orders Only Oral Oncology 1515 [facility], 9th [place] [address] Berkley Aguayo MD Encounter for observation for other suspected condition ruled out (Primary Dx) 11/20/[address] [address] Elana Child, JCARLOS 11/17/2022 9:15 AM TRUCK SHOP MECHANIC Office Visit MD [facility] - Head & Neck Surgery [address] [place] [address] Kenya Agarwal MD Adenocarcinoma of nasopharynx 11/17/2022 8:45 AM TRUCK SHOP MECHANIC NPR MDA PATIENT ACCESS Kenya Agarwal MD 11/17/2022 Travel 11/16/2022 Orders Only MD [facility] - Head & Neck Surgery [address] [place] [phone] Red Berman, BUSINESS COMMUNICATIONS INSTRUCTOR Adenocarcinoma of nasopharynx (Primary Dx) 11/12/2022 Orders Only MD [facility] - [facility] Surgery [address] [place] [address] Chloe Honeycutt PA 11/12/2022 Orders Only [facility] [address] 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 after 10/06/2022 Surgical History Surgery Date Site/Laterality Comments APPENDECTOMY [id number] COLONOSCOPY [id number] CHOLECYSTECTOMY [id number] KNEE ARTHROPLASTY Right SHOULDER SURGERY 050@2010 Left UPPER GASTROINTESTINAL ENDOSCOPY [id number] SECTION, CLASSIC 11/01/1984 - 10/31/1985 PARTIAL HYSTERECTOMY 03/01/2012 - 03/31/2012 MYRINGOTOMY WITH ASPIRATION AND INSERTION PE TUBES 11/01/2019 - 10/31/2020 SLEEVE GASTROPLASTY N/A Medical History Medical History Date Comments Hypertension [id number] Hyperlipidemia [id number] Allergic rhinitis [id number] Fatty liver [id number] Gastric reflux [id number] Gastric ulcer [id number] Crohn's disease [id number] Gout [id number] Type 2 diabetes mellitus wit h hyperglycemia [id number] Anxiety [id number] Chronic obstructive pulmonary disease On home supplemental oxygen Congestive heart disease Acute thrombosis of right ax illary vein 02/08/2023 also bilateral basilic and l eft cephalic vein thromboses Family History Medical History Relation Name Comments Diabetes Father Glaucoma Father Leukemia Father Cancer Maternal Uncle Colon cancer Maternal Uncle -Unknown cancer Mother Diabetes Mother Glaucoma Mother Diabetes Paternal Grandfather Leukemia Paternal Grandfather Diabetes Paternal Grandmother Ovarian cancer Sister Amblyopia Neg Hx Blindness Neg Hx Macular degeneration Neg Hx Retinal detachment Neg Hx Strabismus Neg Hx Relation Name Status Comments Cousin Other reported gastri c cancer Father Maternal Uncle Mother Paternal Grandfather Paternal Grandmother Sister Social History Tobacco Use Types Packs/Day Years Used Date Smoking Tobacco: Former Cigarettes 0.3 0.5 Q uit: 1988 Smokeless Tobacco: Never Tobacco Cessation:Counseling Given: Not Answered Alcohol Use Standard Drinks/Week Comments Not Currently 0 (1 standard drink = 0.6 oz pur e alcohol) Sex and Gender Information Value Date Recorded Sex Assigned at Female 11/12/2022 2:07 PM TRUCK SHOP MECHANIC Gender Identity Female 11/12/2022 2:07 PM TRUCK SHOP MECHANIC Sexual Orientation Not on file Job Start Date Occupation Industry Not on file Not on file Not on file Obstetrics History Last Filed Vital Signs Vital Sign Reading Time Taken Comments Blood Pressure 113/75 06/17/2023 1:13 PM CDT Pulse 71 06/17/2023 1:13 PM CDT Temperature 36.9 C (98.4 F) 04/22/2023 3:38 PM CD T Respiratory Rate 16 06/17/2023 1:13 PM CDT Oxygen Saturation 95% 06/17/2023 1:13 PM CDT Inhaled Oxygen Concentration - - Weight 145.3 kg (320 lb 5.3 oz) 023 10:01 AM TRUCK SHOP MECHANIC Height 155 cm (5' 1.02") 09/13/2023 10: 01 AM TRUCK SHOP MECHANIC Body Mass Index 60.48 09/13/2023 10:01 AM TRUCK SHOP MECHANIC Plan of Treatment Upcoming Encounters Date Type Department Care Team Description 10/12/2023 10:45 AM TRUCK SHOP MECHANIC Follow-Up MD [facility] - Head & Neck Surgery [address] [place] [address] Kenya Agarwal MD [address] [place] [id number] 10/27/2023 9:00 AM TRUCK SHOP MECHANIC Lab MD [facility] [place] - [facility] [address] [place] [address] [address] [place] [address] No Andrade MD [address] [place] [address] 11/03/2023 1:30 PM TRUCK SHOP MECHANIC Telemedicine Endocrine Center [address] [place] [address] Main [facility], 6th [place] [address] Marily Garcia APRN [address] [place] [address] Health Maintenance Due Date Last Done Comments COVID-19 Vaccination ( season) 2023 07/11/2021, 01/01/2021, 12/03/2020 Medical Devices Implanted Type Area Player Development Manager Device Identifier Shelf Expiration Date Model / Serial / Lot Gastric Sleeve Sleeve Midline: Stomach Procedures Procedure Name Priority Date/Time Associated Diagnosis Comments MRI ORBITS W WO CONTRAST Routine 023 11:51 AM TRUCK SHOP MECHANIC Adenoid cystic carcinoma of nasopharynx, NOS CORTISOL, TOTAL Routine 09/13/2023 9:29 AM TRUCK SHOP MECHANIC Adenoid cystic carcinoma of nasopharynx, NOS ADRENOCORTICOTROPIC HORMONE Routine 09/13/2023 9:29 AM TRUCK SHOP MECHANIC Adenoid cystic carcinoma of nasopharynx, NOS ESTRADIOL LEVEL Routine 09/13/2023 9:29 AM TRUCK SHOP MECHANIC Adenoid cystic carcinoma of nasopharynx, NOS FOLLICLE STIMULATING HORMONE LEVEL Routine 09/13/2023 9:29 AM TRUCK SHOP MECHANIC Adenoid cystic carcinoma of nasopharynx, NOS LUTEINIZING HORMONE Routine 09/13/2023 9 :29 AM TRUCK SHOP MECHANIC Adenoid cystic carcinoma of nasopharynx, NOS THYROID STIMULATING HORMONE Routine 09/13/2023 9:29 AM TRUCK SHOP MECHANIC Adenoid cystic carcinoma of nasopharynx, NOS TRIIODOTHYRONINE Routine 09/13/2023 9:29 AM TRUCK SHOP MECHANIC Adenoid cystic carcinoma of nasopharynx, NOS FREE THYROXINE Routine 09/13/2023 9:29 AM TRUCK SHOP MECHANIC Adenoid cystic carcinoma of nasopharynx, NOS INSULIN-LIKE GROWTH FACTOR 1 Routine 09/13/2023 9:29 AM TRUCK SHOP MECHANIC Adenoid cystic carcinoma of nasopharynx, NOS PROLACTIN Routine 09/13/2023 9:29 AM TRUCK SHOP MECHANIC Adenoid cystic carcinoma of nasopharynx, NOS ADRENOCORTICOTROPIC HORMONE Routine 06/17/2023 12:29 PM CDT Abnormal cortisol CORTISOL, TOTAL Routine 06/17/2023 12:29 PM CDT Abnormal cortisol MRI ORBITS W WO CONTRAST Routine 023 2:58 PM CDT Adenoid cystic carcinoma of nasopharynx, NOS DIFFERENTIAL Routine 04/22/2023 12:28 PM CDT Adenoid cystic carcinoma of nasopharynx, NOS .CBC Routine 04/22/2023 12:28 PM CDT Adenoid cystic carcinoma of nasopharynx, NOS .GLOMERULAR FILTRATION RATE Routine 04/22/2023 12:28 PM CDT Adenoid cystic carcinoma of nasopharynx, NOS SERUM CREATININE Routine 04/22/2023 12:28 PM CDT Adenoid cystic carcinoma of nasopharynx, NOS BLOOD UREA NITROGEN Routine 04/22/2023 12:28 PM CDT Adenoid cystic carcinoma of nasopharynx, NOS CREATININE Routine 04/22/2023 12:28 PM CDT Adenoid cystic carcinoma of nasopharynx, NOS ELECTROLYTE PANEL Routine 04/22/2023 12:28 PM CDT Adenoid cystic carcinoma of nasopharynx, NOS COMPLETE BLOOD COUNT W/ DIFFERENTIAL Routine 04/22/2023 12:28 PM CDT Adenoid cystic carcinoma of nasopharynx, NOS CORTISOL, TOTAL Routine 04/22/2023 12:28 PM CDT Adenoid cystic carcinoma of nasopharynx, NOS ADRENOCORTICOTROPIC HORMONE Routine 04/22/2023 12:28 PM CDT Adenoid cystic carcinoma of nasopharynx, NOS ESTRADIOL LEVEL Routine 04/22/2023 12:28 PM CDT Adenoid cystic carcinoma of nasopharynx, NOS FOLLICLE STIMULATING HORMONE LEVEL Routine 04/22/2023 12:28 PM CDT Adenoid cystic carcinoma of nasopharynx, NOS LUTEINIZING HORMONE Routine 04/22/2023 12:28 PM CDT Adenoid cystic carcinoma of nasopharynx, NOS THYROID STIMULATING HORMONE Routine 04/22/2023 12:28 PM CDT Adenoid cystic carcinoma of nasopharynx, NOS TRIIODOTHYRONINE Routine 04/22/2023 12:28 PM CDT Adenoid cystic carcinoma of nasopharynx, NOS FREE THYROXINE Routine 04/22/2023 12:28 PM CDT Adenoid cystic carcinoma of nasopharynx, NOS INSULIN-LIKE GROWTH FACTOR 1 Routine 04/22/2023 12:28 PM CDT Adenoid cystic carcinoma of nasopharynx, NOS PROLACTIN Routine 04/22/2023 12:28 PM CDT Adenoid cystic carcinoma of nasopharynx, NOS FRACTIONATED BILIRUBIN Routine 11:15 AM CDT Adenoid cystic carcinoma of nasopharynx, NOS TOTAL PROTEIN Routine 03/11/2023 11:15 AM CDT Adenoid cystic carcinoma of nasopharynx, NOS ASPARTATE AMINOTRANSFERASE Routine 03/11 11:15 AM CDT Adenoid cystic carcinoma of nasopharynx, NOS ALANINE AMINOTRANSFERASE Routine 023 11:15 AM CDT Adenoid cystic carcinoma of nasopharynx, NOS ALKALINE PHOSPHATASE Routine 03/11/2023 11:15 AM CDT Adenoid cystic carcinoma of nasopharynx, NOS ALBUMIN LEVEL Routine 03/11/2023 11:15 AM CDT Adenoid cystic carcinoma of nasopharynx, NOS CALCIUM LEVEL Routine 03/11/2023 11:15 AM CDT Adenoid cystic carcinoma of nasopharynx, NOS .GLOMERULAR FILTRATION RATE Routine 03/11/2023 11:15 AM CDT Adenoid cystic carcinoma of nasopharynx, NOS SERUM CREATININE Routine 03/11/2023 11:15 AM CDT Adenoid cystic carcinoma of nasopharynx, NOS ELECTROLYTE PANEL Routine 03/11/2023 11:15 AM CDT Adenoid cystic carcinoma of nasopharynx, NOS BLOOD UREA NITROGEN Routine 03/11/2023 11:15 AM CDT Adenoid cystic carcinoma of nasopharynx, NOS GLUCOSE LEVEL Routine 03/11/2023 11:15 AM CDT Adenoid cystic carcinoma of nasopharynx, NOS DIFFERENTIAL Routine 03/11/2023 11:15 AM CDT Adenoid cystic carcinoma of nasopharynx, NOS .CBC Routine 03/11/2023 11:15 AM CDT Adenoid cystic carcinoma of nasopharynx, NOS MAGNESIUM LEVEL Routine 03/11/2023 11:15 AM CDT Adenoid cystic carcinoma of nasopharynx, NOS COMPREHENSIVE METABOLIC PANEL Routine 03/11/2023 11:15 AM CDT Adenoid cystic carcinoma of nasopharynx, NOS COMPLETE BLOOD COUNT W/ DIFFERENTIAL Routine 03/11/2023 11:15 AM CDT Adenoid cystic carcinoma of nasopharynx, NOS FRACTIONATED BILIRUBIN Routine 3 1:03 PM CDT Adenoid cystic carcinoma of nasopharynx, NOS TOTAL PROTEIN Routine 03/03/2023 1:03 PM CDT Adenoid cystic carcinoma of nasopharynx, NOS ASPARTATE AMINOTRANSFERASE Routine 03/03 1:03 PM CDT Adenoid cystic carcinoma of nasopharynx, NOS ALANINE AMINOTRANSFERASE Routine 023 1:03 PM CDT Adenoid cystic carcinoma of nasopharynx, NOS ALKALINE PHOSPHATASE Routine 03/03/2023 1:03 PM CDT Adenoid cystic carcinoma of nasopharynx, NOS ALBUMIN LEVEL Routine 03/03/2023 1:03 PM CDT Adenoid cystic carcinoma of nasopharynx, NOS CALCIUM LEVEL Routine 03/03/2023 1:03 PM CDT Adenoid cystic carcinoma of nasopharynx, NOS .GLOMERULAR FILTRATION RATE Routine 03/03/2023 1:03 PM CDT Adenoid cystic carcinoma of nasopharynx, NOS SERUM CREATININE Routine 03/03/2023 1:03 PM CDT Adenoid cystic carcinoma of nasopharynx, NOS ELECTROLYTE PANEL Routine 03/03/2023 1:0 3 PM CDT Adenoid cystic carcinoma of nasopharynx, NOS BLOOD UREA NITROGEN Routine 03/03/2023 1 :03 PM CDT Adenoid cystic carcinoma of nasopharynx, NOS GLUCOSE LEVEL Routine 03/03/2023 1:03 PM CDT Adenoid cystic carcinoma of nasopharynx, NOS DIFFERENTIAL Routine 03/03/2023 1:03 PM CDT Adenoid cystic carcinoma of nasopharynx, NOS .CBC Routine 03/03/2023 1:03 PM CDT Adenoid cystic carcinoma of nasopharynx, NOS MAGNESIUM LEVEL Routine 03/03/2023 1:03 PM CDT Adenoid cystic carcinoma of nasopharynx, NOS COMPREHENSIVE METABOLIC PANEL Routine 03/03/2023 1:03 PM CDT Adenoid cystic carcinoma of nasopharynx, NOS COMPLETE BLOOD COUNT W/ DIFFERENTIAL Routine 03/03/2023 1:03 PM CDT Adenoid cystic carcinoma of nasopharynx, NOS POC GLUCOSE SCREEN Routine 02/16/2023 12:02 PM CDT ANTI-XA LEVEL Routine 02/16/2023 11:13 AM CDT POC GLUCOSE SCREEN Routine 02/16/2023 7: 20 AM CDT DIFFERENTIAL AM 02/16/2023 6:15 AM CDT .CBC AM 02/16/2023 6:15 AM CDT FRACTIONATED BILIRUBIN AM 6:15 AM CDT TOTAL PROTEIN AM 02/16/2023 6:15 AM CDT ASPARTATE AMINOTRANSFERASE AM 02/16 6:15 AM CDT ALANINE AMINOTRANSFERASE AM 023 6:15 AM CDT ALKALINE PHOSPHATASE AM 02/16/2023 6:15 AM CDT ALBUMIN LEVEL AM 02/16/2023 6:15 AM CDT CALCIUM LEVEL AM 02/16/2023 6:15 AM CDT .GLOMERULAR FILTRATION RATE AM 02/16/2023 6:15 AM CDT SERUM CREATININE AM 02/16/2023 6:15 AM CDT ELECTROLYTE PANEL AM 02/16/2023 6:1 5 AM CDT BLOOD UREA NITROGEN AM 02/16/2023 6 :15 AM CDT GLUCOSE LEVEL AM 02/16/2023 6:15 AM CDT COMPREHENSIVE METABOLIC PANEL AM 02/16/2023 6:15 AM CDT COMPLETE BLOOD COUNT W/ DIFFERENTIAL AM 02/16/2023 6:15 AM CDT PHOSPHORUS LEVEL AM 02/16/2023 6:15 AM CDT MAGNESIUM LEVEL AM 02/16/2023 6:15 AM CDT POC GLUCOSE SCREEN Routine 02/15/2023 9: 26 PM CDT POC GLUCOSE SCREEN Routine 02/15/2023 5: 30 PM CDT POC GLUCOSE SCREEN Routine 02/15/2023 12:15 PM CDT POC GLUCOSE SCREEN Routine 02/15/2023 7: 03 AM CDT DIFFERENTIAL AM 02/15/2023 6:24 AM CDT .CBC AM 02/15/2023 6:24 AM CDT FRACTIONATED BILIRUBIN AM 6:24 AM CDT TOTAL PROTEIN AM 02/15/2023 6:24 AM CDT ASPARTATE AMINOTRANSFERASE AM 02/15 6:24 AM CDT ALANINE AMINOTRANSFERASE AM 023 6:24 AM CDT ALKALINE PHOSPHATASE AM 02/15/2023 6:24 AM CDT ALBUMIN LEVEL AM 02/15/2023 6:24 AM CDT CALCIUM LEVEL AM 02/15/2023 6:24 AM CDT .GLOMERULAR FILTRATION RATE AM 02/15/2023 6:24 AM CDT SERUM CREATININE AM 02/15/2023 6:24 AM CDT ELECTROLYTE PANEL AM 02/15/2023 6:2 4 AM CDT BLOOD UREA NITROGEN AM 02/15/2023 6 :24 AM CDT GLUCOSE LEVEL AM 02/15/2023 6:24 AM CDT COMPREHENSIVE METABOLIC PANEL AM 02/15/2023 6:24 AM CDT COMPLETE BLOOD COUNT W/ DIFFERENTIAL AM 02/15/2023 6:24 AM CDT PHOSPHORUS LEVEL AM 02/15/2023 6:24 AM CDT MAGNESIUM LEVEL AM 02/15/2023 6:24 AM CDT POC GLUCOSE SCREEN Routine 02/14/2023 9: 05 PM CDT POC GLUCOSE SCREEN Routine 02/14/2023 5: 46 PM CDT POC GLUCOSE SCREEN Routine 02/14/2023 11:34 AM CDT POC GLUCOSE SCREEN Routine 02/14/2023 8: 58 AM CDT DIFFERENTIAL AM 02/14/2023 6:24 AM CDT .CBC AM 02/14/2023 6:24 AM CDT FRACTIONATED BILIRUBIN AM 6:24 AM CDT TOTAL PROTEIN AM 02/14/2023 6:24 AM CDT ASPARTATE AMINOTRANSFERASE AM 02/14 6:24 AM CDT ALANINE AMINOTRANSFERASE AM 023 6:24 AM CDT ALKALINE PHOSPHATASE AM 02/14/2023 6:24 AM CDT ALBUMIN LEVEL AM 02/14/2023 6:24 AM CDT CALCIUM LEVEL AM 02/14/2023 6:24 AM CDT .GLOMERULAR FILTRATION RATE AM 02/14/2023 6:24 AM CDT SERUM CREATININE AM 02/14/2023 6:24 AM CDT ELECTROLYTE PANEL AM 02/14/2023 6:2 4 AM CDT BLOOD UREA NITROGEN AM 02/14/2023 6 :24 AM CDT GLUCOSE LEVEL AM 02/14/2023 6:24 AM CDT COMPREHENSIVE METABOLIC PANEL AM 02/14/2023 6:24 AM CDT COMPLETE BLOOD COUNT W/ DIFFERENTIAL AM 02/14/2023 6:24 AM CDT PHOSPHORUS LEVEL AM 02/14/2023 6:24 AM CDT MAGNESIUM LEVEL AM 02/14/2023 6:24 AM CDT POC GLUCOSE SCREEN Routine 02/13/2023 9: 44 PM CDT POC GLUCOSE SCREEN Routine 02/13/2023 6: 32 PM CDT POC GLUCOSE SCREEN Routine 02/13/2023 1: 19 PM CDT POC GLUCOSE SCREEN Routine 02/13/2023 7: 37 AM CDT DIFFERENTIAL AM 02/13/2023 6:42 AM CDT .CBC AM 02/13/2023 6:42 AM CDT FRACTIONATED BILIRUBIN AM 6:42 AM CDT TOTAL PROTEIN AM 02/13/2023 6:42 AM CDT ASPARTATE AMINOTRANSFERASE AM 02/13 6:42 AM CDT ALANINE AMINOTRANSFERASE AM 023 6:42 AM CDT ALKALINE PHOSPHATASE AM 02/13/2023 6:42 AM CDT ALBUMIN LEVEL AM 02/13/2023 6:42 AM CDT CALCIUM LEVEL AM 02/13/2023 6:42 AM CDT .GLOMERULAR FILTRATION RATE AM 02/13/2023 6:42 AM CDT SERUM CREATININE AM 02/13/2023 6:42 AM CDT ELECTROLYTE PANEL AM 02/13/2023 6:4 2 AM CDT BLOOD UREA NITROGEN AM 02/13/2023 6 :42 AM CDT GLUCOSE LEVEL AM 02/13/2023 6:42 AM CDT COMPREHENSIVE METABOLIC PANEL AM 02/13/2023 6:42 AM CDT COMPLETE BLOOD COUNT W/ DIFFERENTIAL AM 02/13/2023 6:42 AM CDT PHOSPHORUS LEVEL AM 02/13/2023 6:42 AM CDT MAGNESIUM LEVEL AM 02/13/2023 6:42 AM CDT POC GLUCOSE SCREEN Routine 02/12/2023 10:26 PM CDT POC GLUCOSE SCREEN Routine 02/12/2023 7: 20 PM CDT POC GLUCOSE SCREEN Routine 02/12/2023 3: 06 PM CDT POC GLUCOSE SCREEN Routine 02/12/2023 10:18 AM CDT GENERAL LABORATORY ADD ON TEST Routine 02/12/2023 9:33 AM CDT POC GLUCOSE SCREEN Routine 02/12/2023 8: 55 AM CDT PROCALCITONIN AM 02/12/2023 5:34 AM CDT DIFFERENTIAL AM 02/12/2023 5:34 AM CDT .CBC AM 02/12/2023 5:34 AM CDT FRACTIONATED BILIRUBIN AM 5:34 AM CDT TOTAL PROTEIN AM 02/12/2023 5:34 AM CDT ASPARTATE AMINOTRANSFERASE AM 02/12 5:34 AM CDT ALANINE AMINOTRANSFERASE AM 023 5:34 AM CDT ALKALINE PHOSPHATASE AM 02/12/2023 5:34 AM CDT ALBUMIN LEVEL AM 02/12/2023 5:34 AM CDT CALCIUM LEVEL AM 02/12/2023 5:34 AM CDT .GLOMERULAR FILTRATION RATE AM 02/12/2023 5:34 AM CDT SERUM CREATININE AM 02/12/2023 5:34 AM CDT ELECTROLYTE PANEL AM 02/12/2023 5:3 4 AM CDT BLOOD UREA NITROGEN AM 02/12/2023 5 :34 AM CDT GLUCOSE LEVEL AM 02/12/2023 5:34 AM CDT COMPREHENSIVE METABOLIC PANEL AM 02/12/2023 5:34 AM CDT COMPLETE BLOOD COUNT W/ DIFFERENTIAL AM 02/12/2023 5:34 AM CDT PHOSPHORUS LEVEL AM 02/12/2023 5:34 AM CDT MAGNESIUM LEVEL AM 02/12/2023 5:34 AM CDT POC GLUCOSE SCREEN Routine 02/11/2023 10:16 PM CDT POC GLUCOSE SCREEN Routine 02/11/2023 7: 01 PM CDT POC GLUCOSE SCREEN Routine 02/11/2023 1: 59 PM CDT POC GLUCOSE SCREEN Routine 02/11/2023 8: 46 AM CDT DIFFERENTIAL AM 02/11/2023 5:42 AM CDT .CBC AM 02/11/2023 5:42 AM CDT FRACTIONATED BILIRUBIN AM 5:42 AM CDT TOTAL PROTEIN AM 02/11/2023 5:42 AM CDT ASPARTATE AMINOTRANSFERASE AM 02/11 5:42 AM CDT ALANINE AMINOTRANSFERASE AM 023 5:42 AM CDT ALKALINE PHOSPHATASE AM 02/11/2023 5:42 AM CDT ALBUMIN LEVEL AM 02/11/2023 5:42 AM CDT CALCIUM LEVEL AM 02/11/2023 5:42 AM CDT .GLOMERULAR FILTRATION RATE AM 02/11/2023 5:42 AM CDT SERUM CREATININE AM 02/11/2023 5:42 AM CDT ELECTROLYTE PANEL AM 02/11/2023 5:4 2 AM CDT BLOOD UREA NITROGEN AM 02/11/2023 5 :42 AM CDT GLUCOSE LEVEL AM 02/11/2023 5:42 AM CDT COMPREHENSIVE METABOLIC PANEL AM 02/11/2023 5:42 AM CDT COMPLETE BLOOD COUNT W/ DIFFERENTIAL AM 02/11/2023 5:42 AM CDT PHOSPHORUS LEVEL AM 02/11/2023 5:42 AM CDT MAGNESIUM LEVEL AM 02/11/2023 5:[address] MAXILLOFACIAL AREA W CONTRAST Routine 02/11/2023 4:15 AM CDT POC GLUCOSE SCREEN Routine 02/10/2023 10:42 PM CDT POC GLUCOSE SCREEN Routine 02/10/2023 5: 17 PM CDT POC GLUCOSE SCREEN Routine 02/10/2023 12:27 PM CDT POC GLUCOSE SCREEN Routine 02/10/2023 8: 52 AM CDT DIFFERENTIAL AM 02/10/2023 5:43 AM CDT .CBC AM 02/10/2023 5:43 AM CDT FRACTIONATED BILIRUBIN AM 5:43 AM CDT TOTAL PROTEIN AM 02/10/2023 5:43 AM CDT ASPARTATE AMINOTRANSFERASE AM 02/10 5:43 AM CDT ALANINE AMINOTRANSFERASE AM 023 5:43 AM CDT ALKALINE PHOSPHATASE AM 02/10/2023 5:43 AM CDT ALBUMIN LEVEL AM 02/10/2023 5:43 AM CDT CALCIUM LEVEL AM 02/10/2023 5:43 AM CDT .GLOMERULAR FILTRATION RATE AM 02/10/2023 5:43 AM CDT SERUM CREATININE AM 02/10/2023 5:43 AM CDT ELECTROLYTE PANEL AM 02/10/2023 5:4 3 AM CDT BLOOD UREA NITROGEN AM 02/10/2023 5 :43 AM CDT GLUCOSE LEVEL AM 02/10/2023 5:43 AM CDT COMPREHENSIVE METABOLIC PANEL AM 02/10/2023 5:43 AM CDT COMPLETE BLOOD COUNT W/ DIFFERENTIAL AM 02/10/2023 5:43 AM CDT PHOSPHORUS LEVEL AM 02/10/2023 5:43 AM CDT MAGNESIUM LEVEL AM 02/10/2023 5:43 AM CDT POC GLUCOSE SCREEN Routine 02/09/2023 10:27 PM CDT POC GLUCOSE SCREEN Routine 02/09/2023 5: 11 PM CDT POC GLUCOSE SCREEN Routine 02/09/2023 1: 18 PM CDT POC GLUCOSE SCREEN Routine 02/09/2023 8: 12 AM CDT DIFFERENTIAL AM 02/09/2023 5:37 AM CDT .CBC AM 02/09/2023 5:37 AM CDT FRACTIONATED BILIRUBIN AM 5:37 AM CDT TOTAL PROTEIN AM 02/09/2023 5:37 AM CDT ASPARTATE AMINOTRANSFERASE AM 02/09 5:37 AM CDT ALANINE AMINOTRANSFERASE AM 023 5:37 AM CDT ALKALINE PHOSPHATASE AM 02/09/2023 5:37 AM CDT ALBUMIN LEVEL AM 02/09/2023 5:37 AM CDT CALCIUM LEVEL AM 02/09/2023 5:37 AM CDT .GLOMERULAR FILTRATION RATE AM 02/09/2023 5:37 AM CDT SERUM CREATININE AM 02/09/2023 5:37 AM CDT ELECTROLYTE PANEL AM 02/09/2023 5:3 7 AM CDT BLOOD UREA NITROGEN AM 02/09/2023 5 :37 AM CDT GLUCOSE LEVEL AM 02/09/2023 5:37 AM CDT CREATINE KINASE Routine 02/09/2023 5:37 AM CDT COMPREHENSIVE METABOLIC PANEL AM 02/09/2023 5:37 AM CDT COMPLETE BLOOD COUNT W/ DIFFERENTIAL AM 02/09/2023 5:37 AM CDT PHOSPHORUS LEVEL AM 02/09/2023 5:37 AM CDT MAGNESIUM LEVEL AM 02/09/2023 5:37 AM CDT POC GLUCOSE SCREEN Routine 02/08/2023 10:21 PM CDT POC GLUCOSE SCREEN Routine 02/08/2023 6: 32 PM CDT US ARM VENOUS DOPPLER BILATERAL Routine 02/08/2023 6:28 PM CDT ECHOCARDIOGRAM 2D COMPLETE W CONTRAST Routine 02/08/2023 2:23 PM CDT POC GLUCOSE SCREEN Routine 02/08/2023 12:21 PM CDT POC GLUCOSE SCREEN Routine 02/08/2023 7: 46 AM CDT DIFFERENTIAL AM 02/08/2023 6:14 AM CDT .CBC AM 02/08/2023 6:14 AM CDT FRACTIONATED BILIRUBIN AM 6:14 AM CDT TOTAL PROTEIN AM 02/08/2023 6:14 AM CDT ASPARTATE AMINOTRANSFERASE AM 02/08 6:14 AM CDT ALANINE AMINOTRANSFERASE AM 023 6:14 AM CDT ALKALINE PHOSPHATASE AM 02/08/2023 6:14 AM CDT ALBUMIN LEVEL AM 02/08/2023 6:14 AM CDT CALCIUM LEVEL AM 02/08/2023 6:14 AM CDT .GLOMERULAR FILTRATION RATE AM 02/08/2023 6:14 AM CDT SERUM CREATININE AM 02/08/2023 6:14 AM CDT ELECTROLYTE PANEL AM 02/08/2023 6:1 4 AM CDT BLOOD UREA NITROGEN AM 02/08/2023 6 :14 AM CDT GLUCOSE LEVEL AM 02/08/2023 6:14 AM CDT COMPREHENSIVE METABOLIC PANEL AM 02/08/2023 6:14 AM CDT COMPLETE BLOOD COUNT W/ DIFFERENTIAL AM 02/08/2023 6:14 AM CDT PHOSPHORUS LEVEL AM 02/08/2023 6:14 AM CDT MAGNESIUM LEVEL AM 02/08/2023 6:14 AM CDT POC GLUCOSE SCREEN Routine 02/07/2023 9: 47 PM CDT POC GLUCOSE SCREEN Routine 02/07/2023 7: 12 PM CDT POC GLUCOSE SCREEN Routine 02/07/2023 5: 43 PM CDT POC GLUCOSE SCREEN Routine 02/07/2023 1: 16 PM CDT POC GLUCOSE SCREEN Routine 02/07/2023 8: 48 AM CDT DIFFERENTIAL AM 02/07/2023 6:52 AM CDT .CBC AM 02/07/2023 6:52 AM CDT FRACTIONATED BILIRUBIN AM 6:52 AM CDT TOTAL PROTEIN AM 02/07/2023 6:52 AM CDT ASPARTATE AMINOTRANSFERASE AM 02/07 6:52 AM CDT ALANINE AMINOTRANSFERASE AM 023 6:52 AM CDT ALKALINE PHOSPHATASE AM 02/07/2023 6:52 AM CDT ALBUMIN LEVEL AM 02/07/2023 6:52 AM CDT CALCIUM LEVEL AM 02/07/2023 6:52 AM CDT .GLOMERULAR FILTRATION RATE AM 02/07/2023 6:52 AM CDT SERUM CREATININE AM 02/07/2023 6:52 AM CDT ELECTROLYTE PANEL AM 02/07/2023 6:5 2 AM CDT BLOOD UREA NITROGEN AM 02/07/2023 6 :52 AM CDT GLUCOSE LEVEL AM 02/07/2023 6:52 AM CDT HEMOGLOBIN A1C AM 02/07/2023 6:52 AM CDT LIPID PANEL AM 02/07/2023 6:52 AM CDT COMPREHENSIVE METABOLIC PANEL AM 02/07/2023 6:52 AM CDT COMPLETE BLOOD COUNT W/ DIFFERENTIAL AM 02/07/2023 6:52 AM CDT PHOSPHORUS LEVEL AM 02/07/2023 6:52 AM CDT MAGNESIUM LEVEL AM 02/07/2023 6:52 AM CDT IRON LEVEL Routine 02/07/2023 6:52 AM CDT TRANSFERRIN Routine 02/07/2023 6:52 AM CDT FERRITIN Routine 02/07/2023 6:52 AM CDT HEPATITIS C VIRUS ANTIBODY Routine 02/07 6:52 AM CDT HEPATITIS B CORE ANTIBODY Routine 2022 6:52 AM CDT HEPATITIS B SURFACE ANTIGEN Routine 02/07/2023 6:52 AM CDT HIV 1/2 ANTIGEN/ANTIBODY, FOURTH GEN W/RFL Routine 02/07/2023 6:52 AM CDT BLOOD CULTURE Routine 02/07/2023 6:52 AM CDT C DIFFICILE DNA ASSAY PATH REVIEW Routine 02/07/2023 5:18 AM CDT C. DIFFICILE DNA DETECTION Routine 02/07 5:18 AM CDT GASTROINTESTINAL MULTIPLEX PANEL PATH REVIEW Routine 02/07/2023 5:16 AM CDT GASTROINTESTINAL MULTIPLEX PCR PANEL Routine 02/07/2023 5:16 AM CDT EKG, 12-LEAD (PORTABLE) STAT 02/07/2023 POC GLUCOSE SCREEN Routine 02/06/2023 10:51 PM CDT POC GLUCOSE SCREEN Routine 02/06/2023 7: 28 PM CDT POC GLUCOSE SCREEN Routine 02/06/2023 5: 13 PM CDT POC GLUCOSE SCREEN Routine 02/06/2023 2: 18 PM CDT POC GLUCOSE SCREEN Routine 02/06/2023 1: 26 PM CDT GENERAL LABORATORY ADD ON TEST Routine 02/06/2023 11:44 AM CDT BLOOD CULTURE STAT 02/06/2023 11:11 AM CDT BLOOD CULTURE STAT 02/06/2023 11:11 AM CDT POC GLUCOSE SCREEN Routine 02/06/2023 9: 46 AM CDT POC GLUCOSE SCREEN Routine 02/06/2023 7: 40 AM CDT POC GLUCOSE SCREEN Routine 02/06/2023 3: 20 AM CDT C REACTIVE PROTEIN AM 02/06/2023 3: 05 AM CDT PROCALCITONIN AM 02/06/2023 3:05 AM CDT NT PRO BNP AM 02/06/2023 3:05 AM CDT DIFFERENTIAL AM 02/06/2023 3:05 AM CDT .CBC STAT 02/06/2023 3:05 AM CDT CALCIUM LEVEL AM 02/06/2023 3:05 AM CDT .GLOMERULAR FILTRATION RATE AM 02/06/2023 3:05 AM CDT SERUM CREATININE AM 02/06/2023 3:05 AM CDT ELECTROLYTE PANEL AM 02/06/2023 3:0 5 AM CDT BLOOD UREA NITROGEN AM 02/06/2023 3 :05 AM CDT GLUCOSE LEVEL AM 02/06/2023 3:05 AM CDT COMPLETE BLOOD COUNT W/ DIFFERENTIAL AM 02/06/2023 3:05 AM CDT PHOSPHORUS LEVEL AM 02/06/2023 3:05 AM CDT MAGNESIUM LEVEL AM 02/06/2023 3:05 AM CDT BASIC METABOLIC PANEL, CALCIUM TOTAL AM 02/06/2023 3:05 AM CDT POC GLUCOSE SCREEN Routine 02/06/2023 1: 17 AM CDT TROPONIN T Routine 02/06/2023 1:09 AM CDT URINE CULTURE Routine 02/06/2023 12:40 AM CDT LACTIC ACID, VENOUS Routine 02/05/2023 8 :26 PM CDT D DIMER STAT 02/05/2023 8:26 PM CDT APTT STAT 02/05/2023 8:26 PM CDT PROTHROMBIN TIME STAT 02/05/2023 8:26 PM CDT XR ABDOMEN AP Routine 02/05/2023 6:59 PM CDT XR CHEST 1 VW Routine 02/05/2023 6:57 PM CDT COVID-19 (SARS-COV-2)PCR - ASYMPTOMATIC - LT Routine 02/05/2023 5:09 PM CDT POC GLUCOSE SCREEN Routine 02/05/2023 4: 27 PM CDT BLOOD CULTURE Routine 02/05/2023 3:39 PM CDT FRACTIONATED BILIRUBIN Routine 3:30 PM CDT TOTAL PROTEIN Routine 02/05/2023 3:30 PM CDT ASPARTATE AMINOTRANSFERASE Routine 02/05 3:30 PM CDT ALANINE AMINOTRANSFERASE Routine 023 3:30 PM CDT ALKALINE PHOSPHATASE Routine 02/05/2023 3:30 PM CDT ALBUMIN LEVEL Routine 02/05/2023 3:30 PM CDT CALCIUM LEVEL Routine 02/05/2023 3:30 PM CDT .GLOMERULAR FILTRATION RATE Routine 02/05/2023 3:30 PM CDT SERUM CREATININE Routine 02/05/2023 3:30 PM CDT ELECTROLYTE PANEL Routine 02/05/2023 3:3 0 PM CDT BLOOD UREA NITROGEN Routine 02/05/2023 3 :30 PM CDT GLUCOSE LEVEL Routine 02/05/2023 3:30 PM CDT DIFFERENTIAL STAT 02/05/2023 3:30 PM CDT .CBC STAT 02/05/2023 3:30 PM CDT LIPASE LEVEL Routine 02/05/2023 3:30 PM CDT AMYLASE LEVEL Routine 02/05/2023 3:30 PM CDT PROCALCITONIN Routine 02/05/2023 3:30 PM CDT COMPREHENSIVE METABOLIC PANEL Routine 02/05/2023 3:30 PM CDT C REACTIVE PROTEIN Routine 02/05/2023 3: 30 PM CDT CKMB Routine 02/05/2023 3:30 PM CDT CREATINE KINASE Routine 02/05/2023 3:30 PM CDT TROPONIN T Routine 02/05/2023 3:30 PM CDT NT PRO BNP Routine 02/05/2023 3:30 PM CDT PHOSPHORUS LEVEL Routine 02/05/2023 3:30 PM CDT MAGNESIUM LEVEL Routine 02/05/2023 3:30 PM CDT COMPLETE BLOOD COUNT W/ DIFFERENTIAL Routine 02/05/2023 3:30 PM CDT BLOOD CULTURE Routine 02/05/2023 3:30 PM CDT URINALYSIS WITH MICROSCOPIC STAT 02/05/2023 12:39 AM CDT EKG, 12-LEAD (PORTABLE) STAT 02/05/2023 DIFFERENTIAL Routine 02/04/2023 12:33 PM CDT Adenoid cystic carcinoma of nasopharynx, NOS .CBC Routine 02/04/2023 12:33 PM CDT Adenoid cystic carcinoma of nasopharynx, NOS FRACTIONATED BILIRUBIN Routine 12:33 PM CDT Adenoid cystic carcinoma of nasopharynx, NOS TOTAL PROTEIN Routine 02/04/2023 12:33 PM CDT Adenoid cystic carcinoma of nasopharynx, NOS ASPARTATE AMINOTRANSFERASE Routine 02/04 12:33 PM CDT Adenoid cystic carcinoma of nasopharynx, NOS ALANINE AMINOTRANSFERASE Routine 023 12:33 PM CDT Adenoid cystic carcinoma of nasopharynx, NOS ALKALINE PHOSPHATASE Routine 02/04/2023 12:33 PM CDT Adenoid cystic carcinoma of nasopharynx, NOS ALBUMIN LEVEL Routine 02/04/2023 12:33 PM CDT Adenoid cystic carcinoma of nasopharynx, NOS CALCIUM LEVEL Routine 02/04/2023 12:33 PM CDT Adenoid cystic carcinoma of nasopharynx, NOS .GLOMERULAR FILTRATION RATE Routine 02/04/2023 12:33 PM CDT Adenoid cystic carcinoma of nasopharynx, NOS SERUM CREATININE Routine 02/04/2023 12:33 PM CDT Adenoid cystic carcinoma of nasopharynx, NOS ELECTROLYTE PANEL Routine 02/04/2023 12:33 PM CDT Adenoid cystic carcinoma of nasopharynx, NOS BLOOD UREA NITROGEN Routine 02/04/2023 12:33 PM CDT Adenoid cystic carcinoma of nasopharynx, NOS GLUCOSE LEVEL Routine 02/04/2023 12:33 PM CDT Adenoid cystic carcinoma of nasopharynx, NOS PHOSPHORUS LEVEL Routine 02/04/2023 12:33 PM CDT Adenoid cystic carcinoma of nasopharynx, NOS MAGNESIUM LEVEL Routine 02/04/2023 12:33 PM CDT Adenoid cystic carcinoma of nasopharynx, NOS COMPLETE BLOOD COUNT W/ DIFFERENTIAL Routine 02/04/2023 12:33 PM CDT Adenoid cystic carcinoma of nasopharynx, NOS COMPREHENSIVE METABOLIC PANEL Routine 02/04/2023 12:33 PM CDT Adenoid cystic carcinoma of nasopharynx, NOS POC GLUCOSE SCREEN Routine 02/01/2023 1: 19 PM CDT POC GLUCOSE SCREEN Routine 02/01/2023 7: 47 AM CDT DIFFERENTIAL AM 02/01/2023 4:00 AM CDT .CBC AM 02/01/2023 4:00 AM CDT CALCIUM LEVEL AM 02/01/2023 4:00 AM CDT .GLOMERULAR FILTRATION RATE AM 02/01/2023 4:00 AM CDT SERUM CREATININE AM 02/01/2023 4:00 AM CDT ELECTROLYTE PANEL AM 02/01/2023 4:0 0 AM CDT BLOOD UREA NITROGEN AM 02/01/2023 4 :00 AM CDT GLUCOSE LEVEL AM 02/01/2023 4:00 AM CDT COMPLETE BLOOD COUNT W/ DIFFERENTIAL AM 02/01/2023 4:00 AM CDT PHOSPHORUS LEVEL AM 02/01/2023 4:00 AM CDT MAGNESIUM LEVEL AM 02/01/2023 4:00 AM CDT BASIC METABOLIC PANEL, CALCIUM TOTAL AM 02/01/2023 4:00 AM CDT POC GLUCOSE SCREEN Routine 01/31/2023 9: 36 PM CDT POC GLUCOSE SCREEN Routine 01/31/2023 4: 55 PM CDT POC GLUCOSE SCREEN Routine 01/31/2023 12:13 PM CDT POC GLUCOSE SCREEN Routine 01/31/2023 8: 08 AM CDT DIFFERENTIAL AM 01/31/2023 3:15 AM CDT .CBC AM 01/31/2023 3:15 AM CDT CALCIUM LEVEL AM 01/31/2023 3:15 AM CDT .GLOMERULAR FILTRATION RATE AM 01/31/2023 3:15 AM CDT SERUM CREATININE AM 01/31/2023 3:15 AM CDT ELECTROLYTE PANEL AM 01/31/2023 3:1 5 AM CDT BLOOD UREA NITROGEN AM 01/31/2023 3 :15 AM CDT GLUCOSE LEVEL AM 01/31/2023 3:15 AM CDT COMPLETE BLOOD COUNT W/ DIFFERENTIAL AM 01/31/2023 3:15 AM CDT PHOSPHORUS LEVEL AM 01/31/2023 3:15 AM CDT MAGNESIUM LEVEL AM 01/31/2023 3:15 AM CDT BASIC METABOLIC PANEL, CALCIUM TOTAL AM 01/31/2023 3:15 AM CDT POC GLUCOSE SCREEN Routine 01/30/2023 9: 23 PM CDT POC GLUCOSE SCREEN Routine 01/30/2023 5: 38 PM CDT POC GLUCOSE SCREEN Routine 01/30/2023 12:51 PM CDT POC GLUCOSE SCREEN Routine 01/30/2023 9: 45 AM CDT DIFFERENTIAL AM 01/30/2023 3:14 AM CDT .CBC AM 01/30/2023 3:14 AM CDT CALCIUM LEVEL AM 01/30/2023 3:14 AM CDT .GLOMERULAR FILTRATION RATE AM 01/30/2023 3:14 AM CDT SERUM CREATININE AM 01/30/2023 3:14 AM CDT ELECTROLYTE PANEL AM 01/30/2023 3:1 4 AM CDT BLOOD UREA NITROGEN AM 01/30/2023 3 :14 AM CDT GLUCOSE LEVEL AM 01/30/2023 3:14 AM CDT COMPLETE BLOOD COUNT W/ DIFFERENTIAL AM 01/30/2023 3:14 AM CDT PHOSPHORUS LEVEL AM 01/30/2023 3:14 AM CDT MAGNESIUM LEVEL AM 01/30/2023 3:14 AM CDT BASIC METABOLIC PANEL, CALCIUM TOTAL AM 01/30/2023 3:14 AM CDT POC GLUCOSE SCREEN Routine 01/29/2023 9: 40 PM CDT POC GLUCOSE SCREEN Routine 01/29/2023 7: 24 PM CDT POC GLUCOSE SCREEN Routine 01/29/2023 5: 51 PM CDT VERIFY CATHETER TIP PLACEMENT Routine 01/29/2023 3:08 PM CDT Encounter for adjustment and management of vascular access device XR CHEST 1 VW POST IMPLANT STAT 01/29 2:59 PM CDT INSERT VASCULAR ACCESS DEVICE Routine 01/29/2023 2:04 PM CDT Encounter for adjustment and management of vascular access device POC GLUCOSE SCREEN Routine 01/29/2023 2: 04 PM CDT POC GLUCOSE SCREEN Routine 01/29/2023 8: 50 AM CDT DIFFERENTIAL AM 01/29/2023 3:33 AM CDT .CBC AM 01/29/2023 3:33 AM CDT CALCIUM LEVEL AM 01/29/2023 3:33 AM CDT .GLOMERULAR FILTRATION RATE AM 01/29/2023 3:33 AM CDT SERUM CREATININE AM 01/29/2023 3:33 AM CDT ELECTROLYTE PANEL AM 01/29/2023 3:3 3 AM CDT BLOOD UREA NITROGEN AM 01/29/2023 3 :33 AM CDT GLUCOSE LEVEL AM 01/29/2023 3:33 AM CDT COMPLETE BLOOD COUNT W/ DIFFERENTIAL AM 01/29/2023 3:33 AM CDT PHOSPHORUS LEVEL AM 01/29/2023 3:33 AM CDT MAGNESIUM LEVEL AM 01/29/2023 3:33 AM CDT BASIC METABOLIC PANEL, CALCIUM TOTAL AM 01/29/2023 3:33 AM CDT POC GLUCOSE SCREEN Routine 01/28/2023 10:21 PM CDT POC GLUCOSE SCREEN Routine 01/28/2023 6: 27 PM CDT POC GLUCOSE SCREEN Routine 01/28/2023 12:57 PM CDT POC GLUCOSE SCREEN Routine 01/28/2023 10:38 AM CDT HEMATOCRIT Routine 01/28/2023 8:24 AM CDT HEMOGLOBIN Routine 01/28/2023 8:24 AM CDT POC GLUCOSE SCREEN Routine 01/28/2023 8: 17 AM CDT DIFFERENTIAL AM 01/28/2023 3:00 AM CDT .CBC AM 01/28/2023 3:00 AM CDT CALCIUM LEVEL AM 01/28/2023 3:00 AM CDT .GLOMERULAR FILTRATION RATE AM 01/28/2023 3:00 AM CDT SERUM CREATININE AM 01/28/2023 3:00 AM CDT ELECTROLYTE PANEL AM 01/28/2023 3:0 0 AM CDT BLOOD UREA NITROGEN AM 01/28/2023 3:00 AM CDT GLUCOSE LEVEL AM 01/28/2023 3:00 AM CDT COMPLETE BLOOD COUNT W/ DIFFERENTIAL AM 01/28/2023 3:00 AM CDT PHOSPHORUS LEVEL AM 01/28/2023 3:00 AM CDT MAGNESIUM LEVEL AM 01/28/2023 3:00 AM CDT BASIC METABOLIC PANEL, CALCIUM TOTAL AM 01/28/2023 3:00 AM CDT HEMATOCRIT Routine 01/28/2023 3:00 AM CDT HEMOGLOBIN Routine 01/28/2023 3:00 AM CDT POC GLUCOSE SCREEN Routine 01/27/2023 10:34 PM CDT POC GLUCOSE SCREEN Routine 01/27/2023 7: 42 PM CDT HEMATOCRIT Routine 01/27/2023 4:15 PM CDT HEMOGLOBIN Routine 01/27/2023 4:15 PM CDT POC GLUCOSE SCREEN Routine 01/27/2023 2: 38 PM CDT POC GLUCOSE SCREEN Routine 01/27/2023 11:11 AM CDT POC GLUCOSE SCREEN Routine 01/27/2023 8: 43 AM CDT DIFFERENTIAL AM 01/27/2023 2:48 AM CDT .CBC AM 01/27/2023 2:48 AM CDT CALCIUM LEVEL AM 01/27/2023 2:48 AM CDT .GLOMERULAR FILTRATION RATE AM 01/27/2023 2:48 AM CDT SERUM CREATININE AM 01/27/2023 2:48 AM CDT ELECTROLYTE PANEL AM 01/27/2023 2:4 8 AM CDT BLOOD UREA NITROGEN AM 01/27/2023 2 :48 AM CDT GLUCOSE LEVEL AM 01/27/2023 2:48 AM CDT COMPLETE BLOOD COUNT W/ DIFFERENTIAL AM 01/27/2023 2:48 AM CDT PHOSPHORUS LEVEL AM 01/27/2023 2:48 AM CDT MAGNESIUM LEVEL AM 01/27/2023 2:48 AM CDT BASIC METABOLIC PANEL, CALCIUM TOTAL AM 01/27/2023 2:48 AM CDT POC GLUCOSE SCREEN Routine 01/26/2023 11:16 PM CDT URINALYSIS MICROSCOPIC EXAM Routine 01/26/2023 10:45 PM CDT URINALYSIS WITH MICROSCOPIC IF INDICATED Routine 01/26/2023 10:45 PM CDT URINE CULTURE Routine 01/26/2023 10:45 PM CDT POC GLUCOSE SCREEN Routine 01/26/2023 7: 34 PM CDT POC GLUCOSE SCREEN Routine 01/26/2023 5: 30 PM CDT COVID-19 (SARS-COV-2)PCR - ASYMPTOMATIC - LT Routine 01/26/2023 4:34 PM CDT TOTAL PROTEIN Routine 01/26/2023 2:44 PM CDT ASPARTATE AMINOTRANSFERASE Routine 01/26 2:44 PM CDT ALANINE AMINOTRANSFERASE Routine 2:44 PM CDT ALKALINE PHOSPHATASE Routine 01/26/2023 2:44 PM CDT ALBUMIN LEVEL Routine 01/26/2023 2:44 PM CDT CALCIUM LEVEL Routine 01/26/2023 2:44 PM CDT .GLOMERULAR FILTRATION RATE Routine 01/26/2023 2:44 PM CDT SERUM CREATININE Routine 01/26/2023 2:44 PM CDT ELECTROLYTE PANEL Routine 01/26/2023 2:4 4 PM CDT BLOOD UREA NITROGEN Routine 01/26/2023 2 :44 PM CDT GLUCOSE LEVEL Routine 01/26/2023 2:44 PM CDT DIFFERENTIAL STAT 01/26/2023 2:44 PM CDT .CBC STAT 01/26/2023 2:44 PM CDT PROCALCITONIN Routine 01/26/2023 2:44 PM CDT COMPREHENSIVE METABOLIC PANEL Routine 01/26/2023 2:44 PM CDT C REACTIVE PROTEIN Routine 01/26/2023 2: 44 PM CDT LACTATE DEHYDROGENASE Routine 01/26/2023 2:44 PM CDT LIPASE LEVEL Routine 01/26/2023 2:44 PM CDT AMYLASE LEVEL Routine 01/26/2023 2:44 PM CDT FRACTIONATED BILIRUBIN Routine 2:44 PM CDT PHOSPHORUS LEVEL Routine 01/26/2023 2:44 PM CDT MAGNESIUM LEVEL Routine 01/26/2023 2:44 PM CDT COMPLETE BLOOD COUNT W/ DIFFERENTIAL Routine 01/26/2023 2:44 PM CDT BLOOD CULTURE Routine 01/26/2023 2:44 PM CDT DIFFERENTIAL Routine 01/20/2023 12:53 PM CDT Adenoid cystic carcinoma of nasopharynx, NOS .CBC Routine 01/20/2023 12:53 PM CDT Adenoid cystic carcinoma of nasopharynx, NOS FRACTIONATED BILIRUBIN Routine 12:53 PM CDT Adenoid cystic carcinoma of nasopharynx, NOS TOTAL PROTEIN Routine 01/20/2023 12:53 PM CDT Adenoid cystic carcinoma of nasopharynx, NOS ASPARTATE AMINOTRANSFERASE Routine 01/20 12:53 PM CDT Adenoid cystic carcinoma of nasopharynx, NOS ALANINE AMINOTRANSFERASE Routine 023 12:53 PM CDT Adenoid cystic carcinoma of nasopharynx, NOS ALKALINE PHOSPHATASE Routine 01/20/2023 12:53 PM CDT Adenoid cystic carcinoma of nasopharynx, NOS ALBUMIN LEVEL Routine 01/20/2023 12:53 PM CDT Adenoid cystic carcinoma of nasopharynx, NOS CALCIUM LEVEL Routine 01/20/2023 12:53 PM CDT Adenoid cystic carcinoma of nasopharynx, NOS .GLOMERULAR FILTRATION RATE Routine 01/20/2023 12:53 PM CDT Adenoid cystic carcinoma of nasopharynx, NOS SERUM CREATININE Routine 01/20/2023 12:53 PM CDT Adenoid cystic carcinoma of nasopharynx, NOS ELECTROLYTE PANEL Routine 01/20/2023 12:53 PM CDT Adenoid cystic carcinoma of nasopharynx, NOS BLOOD UREA NITROGEN Routine 01/20/2023 12:53 PM CDT Adenoid cystic carcinoma of nasopharynx, NOS GLUCOSE LEVEL Routine 01/20/2023 12:53 PM CDT Adenoid cystic carcinoma of nasopharynx, NOS PHOSPHORUS LEVEL Routine 01/20/2023 12:53 PM CDT Adenoid cystic carcinoma of nasopharynx, NOS MAGNESIUM LEVEL Routine 01/20/2023 12:53 PM CDT Adenoid cystic carcinoma of nasopharynx, NOS COMPLETE BLOOD COUNT W/ DIFFERENTIAL Routine 01/20/2023 12:53 PM CDT Adenoid cystic carcinoma of nasopharynx, NOS COMPREHENSIVE METABOLIC PANEL Routine 01/20/2023 12:53 PM CDT Adenoid cystic carcinoma of nasopharynx, NOS POC URINE DRUG SCREEN PANEL, QUALITATIVE Routine 01/20/2023 12:37 PM CDT TETRAHYDROCANNABINOL CONFIRMATION, UR Routine 01/20/2023 12:37 PM CDT CONTROLLED SUBSTANCE MONITORING PANEL, URINE Routine 01/20/2023 12:37 PM CDT USP current use of opiate analgesic POC GLUCOSE SCREEN Routine 01/18/2023 1: 10 PM CDT POC GLUCOSE SCREEN Routine 01/18/2023 7: 46 AM CDT DIFFERENTIAL AM 01/18/2023 4:03 AM CDT .CBC AM 01/18/2023 4:03 AM CDT CALCIUM LEVEL AM 01/18/2023 4:03 AM CDT .GLOMERULAR FILTRATION RATE AM 01/18/2023 4:03 AM CDT SERUM CREATININE AM 01/18/2023 4:03 AM CDT ELECTROLYTE PANEL AM 01/18/2023 4:0 3 AM CDT BLOOD UREA NITROGEN AM 01/18/2023 4 :03 AM CDT GLUCOSE LEVEL AM 01/18/2023 4:03 AM CDT COMPLETE BLOOD COUNT W/ DIFFERENTIAL AM 01/18/2023 4:03 AM CDT PHOSPHORUS LEVEL AM 01/18/2023 4:03 AM CDT MAGNESIUM LEVEL AM 01/18/2023 4:03 AM CDT BASIC METABOLIC PANEL, CALCIUM TOTAL AM 01/18/2023 4:03 AM CDT POC GLUCOSE SCREEN Routine 01/17/2023 9: 33 PM CDT POC GLUCOSE SCREEN Routine 01/17/2023 6: 22 PM CDT POC GLUCOSE SCREEN Routine 01/17/2023 12:43 PM CDT POC GLUCOSE SCREEN Routine 01/17/2023 8: 58 AM CDT DIFFERENTIAL AM 01/17/2023 4:31 AM CDT .CBC AM 01/17/2023 4:31 AM CDT CALCIUM LEVEL AM 01/17/2023 4:31 AM CDT .GLOMERULAR FILTRATION RATE AM 01/17/2023 4:31 AM CDT SERUM CREATININE AM 01/17/2023 4:31 AM CDT ELECTROLYTE PANEL AM 01/17/2023 4:3 1 AM CDT BLOOD UREA NITROGEN AM 01/17/2023 4 :31 AM CDT GLUCOSE LEVEL AM 01/17/2023 4:31 AM CDT COMPLETE BLOOD COUNT W/ DIFFERENTIAL AM 01/17/2023 4:31 AM CDT PHOSPHORUS LEVEL AM 01/17/2023 4:31 AM CDT MAGNESIUM LEVEL AM 01/17/2023 4:31 AM CDT BASIC METABOLIC PANEL, CALCIUM TOTAL AM 01/17/2023 4:31 AM CDT POC GLUCOSE SCREEN Routine 01/16/2023 8: 43 PM CDT POC GLUCOSE SCREEN Routine 01/16/2023 5: 16 PM CDT POC GLUCOSE SCREEN Routine 01/16/2023 12:25 PM CDT POC GLUCOSE SCREEN Routine 01/16/2023 9: 01 AM CDT DIFFERENTIAL AM 01/16/2023 6:22 AM CDT .CBC AM 01/16/2023 6:22 AM CDT CALCIUM LEVEL AM 01/16/2023 6:22 AM CDT .GLOMERULAR FILTRATION RATE AM 01/16/2023 6:22 AM CDT SERUM CREATININE AM 01/16/2023 6:22 AM CDT ELECTROLYTE PANEL AM 01/16/2023 6:2 2 AM CDT BLOOD UREA NITROGEN AM 01/16/2023 6 :22 AM CDT GLUCOSE LEVEL AM 01/16/2023 6:22 AM CDT COMPLETE BLOOD COUNT W/ DIFFERENTIAL AM 01/16/2023 6:22 AM CDT PHOSPHORUS LEVEL AM 01/16/2023 6:22 AM CDT MAGNESIUM LEVEL AM 01/16/2023 6:22 AM CDT BASIC METABOLIC PANEL, CALCIUM TOTAL AM 01/16/2023 6:22 AM CDT POC GLUCOSE SCREEN Routine 01/15/2023 8: 34 PM CDT POC GLUCOSE SCREEN Routine 01/15/2023 6: 29 PM CDT POC GLUCOSE SCREEN Routine 01/15/2023 1:11 PM CDT POC GLUCOSE SCREEN Routine 01/15/2023 8: 12 AM CDT DIFFERENTIAL AM 01/15/2023 2:23 AM CDT .CBC AM 01/15/2023 2:23 AM CDT CALCIUM LEVEL AM 01/15/2023 2:23 AM CDT .GLOMERULAR FILTRATION RATE AM 01/15/2023 2:23 AM CDT SERUM CREATININE AM 01/15/2023 2:23 AM CDT ELECTROLYTE PANEL AM 01/15/2023 2:2 3 AM CDT BLOOD UREA NITROGEN AM 01/15/2023 2 :23 AM CDT GLUCOSE LEVEL AM 01/15/2023 2:23 AM CDT COMPLETE BLOOD COUNT W/ DIFFERENTIAL AM 01/15/2023 2:23 AM CDT PHOSPHORUS LEVEL AM 01/15/2023 2:23 AM CDT MAGNESIUM LEVEL AM 01/15/2023 2:23 AM CDT BASIC METABOLIC PANEL, CALCIUM TOTAL AM 01/15/2023 2:23 AM CDT POC GLUCOSE SCREEN Routine 01/14/2023 10:18 PM CDT POC GLUCOSE SCREEN Routine 01/14/2023 7: 17 PM CDT POC GLUCOSE SCREEN Routine 01/14/2023 2: 43 PM CDT POC GLUCOSE SCREEN Routine 01/14/2023 9: 54 AM CDT POC GLUCOSE SCREEN Routine 01/14/2023 7: 55 AM CDT DIFFERENTIAL AM 01/14/2023 3:31 AM CDT .CBC AM 01/14/2023 3:31 AM CDT CALCIUM LEVEL AM 01/14/2023 3:31 AM CDT .GLOMERULAR FILTRATION RATE AM 01/14/2023 3:31 AM CDT SERUM CREATININE AM 01/14/2023 3:31 AM CDT ELECTROLYTE PANEL AM 01/14/2023 3:3 1 AM CDT BLOOD UREA NITROGEN AM 01/14/2023 3 :31 AM CDT GLUCOSE LEVEL AM 01/14/2023 3:31 AM CDT COMPLETE BLOOD COUNT W/ DIFFERENTIAL AM 01/14/2023 3:31 AM CDT PHOSPHORUS LEVEL AM 01/14/2023 3:31 AM CDT MAGNESIUM LEVEL AM 01/14/2023 3:31 AM CDT BASIC METABOLIC PANEL, CALCIUM TOTAL AM 01/14/2023 3:31 AM CDT POC GLUCOSE SCREEN Routine 01/13/2023 10:05 PM CDT POC GLUCOSE SCREEN Routine 01/13/2023 6: 08 PM CDT POC GLUCOSE SCREEN Routine 01/13/2023 1: 04 PM CDT POC GLUCOSE SCREEN Routine 01/13/2023 11:39 AM CDT POC GLUCOSE SCREEN Routine 01/13/2023 9: 36 AM CDT POC GLUCOSE SCREEN Routine 01/13/2023 7: 31 AM CDT DIFFERENTIAL AM 01/13/2023 2:55 AM CDT .CBC AM 01/13/2023 2:55 AM CDT CALCIUM LEVEL AM 01/13/2023 2:55 AM CDT .GLOMERULAR FILTRATION RATE AM 01/13/2023 2:55 AM CDT SERUM CREATININE AM 01/13/2023 2:55 AM CDT ELECTROLYTE PANEL AM 01/13/2023 2:5 5 AM CDT BLOOD UREA NITROGEN AM 01/13/2023 2 :55 AM CDT GLUCOSE LEVEL AM 01/13/2023 2:55 AM CDT COMPLETE BLOOD COUNT W/ DIFFERENTIAL AM 01/13/2023 2:55 AM CDT PHOSPHORUS LEVEL AM 01/13/2023 2:55 AM CDT MAGNESIUM LEVEL AM 01/13/2023 2:55 AM CDT BASIC METABOLIC PANEL, CALCIUM TOTAL AM 01/13/2023 2:55 AM CDT POC GLUCOSE SCREEN Routine 01/12/2023 10:31 PM CDT POC GLUCOSE SCREEN Routine 01/12/2023 7: 05 PM CDT POC GLUCOSE SCREEN Routine 01/12/2023 1: 51 PM CDT POC GLUCOSE SCREEN Routine 01/12/2023 1: 00 PM CDT POC GLUCOSE SCREEN Routine 01/12/2023 9: 16 AM CDT POC GLUCOSE SCREEN Routine 01/12/2023 7: 55 AM CDT POC GLUCOSE SCREEN Routine 01/12/2023 5: 59 AM CDT DIFFERENTIAL AM 01/12/2023 3:03 AM CDT .CBC AM 01/12/2023 3:03 AM CDT CALCIUM LEVEL AM 01/12/2023 3:03 AM CDT .GLOMERULAR FILTRATION RATE AM 01/12/2023 3:03 AM CDT SERUM CREATININE AM 01/12/2023 3:03 AM CDT ELECTROLYTE PANEL AM 01/12/2023 3:0 3 AM CDT BLOOD UREA NITROGEN AM 01/12/2023 3 :03 AM CDT GLUCOSE LEVEL AM 01/12/2023 3:03 AM CDT COMPLETE BLOOD COUNT W/ DIFFERENTIAL AM 01/12/2023 3:03 AM CDT PHOSPHORUS LEVEL AM 01/12/2023 3:03 AM CDT MAGNESIUM LEVEL AM 01/12/2023 3:03 AM CDT BASIC METABOLIC PANEL, CALCIUM TOTAL AM 01/12/2023 3:03 AM CDT POC GLUCOSE SCREEN Routine 01/12/2023 1: 58 AM CDT COVID-19 (SARS-COV-2)PCR - ASYMPTOMATIC - LT Routine 01/11/2023 10:25 PM CDT XR KNEE 1 OR 2 VW RIGHT Routine 01/12/20 10:22 PM CDT POC GLUCOSE SCREEN Routine 01/11/2023 8: [address] HEAD WO CONTRAST Routine 01/11/2023 6 :29 PM CDT FRACTIONATED BILIRUBIN Routine 4:11 PM CDT TOTAL PROTEIN Routine 01/11/2023 4:11 PM CDT ASPARTATE AMINOTRANSFERASE Routine 01/11 4:11 PM CDT ALANINE AMINOTRANSFERASE Routine 023 4:11 PM CDT ALKALINE PHOSPHATASE Routine 01/11/2023 4:11 PM CDT ALBUMIN LEVEL Routine 01/11/2023 4:11 PM CDT CALCIUM LEVEL Routine 01/11/2023 4:11 PM CDT .GLOMERULAR FILTRATION RATE Routine 01/11/2023 4:11 PM CDT SERUM CREATININE Routine 01/11/2023 4:11 PM CDT ELECTROLYTE PANEL Routine 01/11/2023 4:1 1 PM CDT BLOOD UREA NITROGEN Routine 01/11/2023 4 :11 PM CDT GLUCOSE LEVEL Routine 01/11/2023 4:11 PM CDT DIFFERENTIAL Routine 01/11/2023 4:11 PM CDT .CBC STAT 01/11/2023 4:11 PM CDT APTT Routine 01/11/2023 4:11 PM CDT PROTHROMBIN TIME Routine 01/11/2023 4:11 PM CDT PHOSPHORUS LEVEL Routine 01/11/2023 4:11 PM CDT MAGNESIUM LEVEL Routine 01/11/2023 4:11 PM CDT COMPREHENSIVE METABOLIC PANEL Routine 01/11/2023 4:11 PM CDT COMPLETE BLOOD COUNT W/ DIFFERENTIAL Routine 01/11/2023 4:11 PM CDT DIFFERENTIAL Routine 01/07/2023 8:28 AM [employer] Adenoid cystic carcinoma of nasopharynx, NOS .CBC Routine 01/07/2023 8:28 AM [employer] Adenoid cystic carcinoma of nasopharynx, NOS FRACTIONATED BILIRUBIN Routine 8:28 AM [employer] Adenoid cystic carcinoma of nasopharynx, NOS TOTAL PROTEIN Routine 01/07/2023 8:28 AM [employer] Adenoid cystic carcinoma of nasopharynx, NOS ASPARTATE AMINOTRANSFERASE Routine 01/07 8:28 AM [employer] Adenoid cystic carcinoma of nasopharynx, NOS ALANINE AMINOTRANSFERASE Routine 023 8:28 AM [employer] Adenoid cystic carcinoma of nasopharynx, NOS ALKALINE PHOSPHATASE Routine 01/07/2023 8:28 AM [employer] Adenoid cystic carcinoma of nasopharynx, NOS ALBUMIN LEVEL Routine 01/07/2023 8:28 AM [employer] Adenoid cystic carcinoma of nasopharynx, NOS CALCIUM LEVEL Routine 01/07/2023 8:28 AM [employer] Adenoid cystic carcinoma of nasopharynx, NOS .GLOMERULAR FILTRATION RATE Routine 01/07/2023 8:28 AM [employer] Adenoid cystic carcinoma of nasopharynx, NOS SERUM CREATININE Routine 01/07/2023 8:28 AM [employer] Adenoid cystic carcinoma of nasopharynx, NOS ELECTROLYTE PANEL Routine 01/07/2023 8:2 8 AM [employer] Adenoid cystic carcinoma of nasopharynx, NOS BLOOD UREA NITROGEN Routine 01/07/2023 8 :28 AM [employer] Adenoid cystic carcinoma of nasopharynx, NOS GLUCOSE LEVEL Routine 01/07/2023 8:28 AM [employer] Adenoid cystic carcinoma of nasopharynx, NOS PHOSPHORUS LEVEL Routine 01/07/2023 8:28 AM [employer] Adenoid cystic carcinoma of nasopharynx, NOS MAGNESIUM LEVEL Routine 01/07/2023 8:28 AM [employer] Adenoid cystic carcinoma of nasopharynx, NOS COMPLETE BLOOD COUNT W/ DIFFERENTIAL Routine 01/07/2023 8:28 AM [employer] Adenoid cystic carcinoma of nasopharynx, NOS COMPREHENSIVE METABOLIC PANEL Routine 01/07/2023 8:28 AM [employer] Adenoid cystic carcinoma of nasopharynx, NOS DIFFERENTIAL Routine 01/01/2023 8:26 AM [employer] Adenoid cystic carcinoma of nasopharynx, NOS .CBC Routine 01/01/2023 8:26 AM [employer] Adenoid cystic carcinoma of nasopharynx, NOS FRACTIONATED BILIRUBIN Routine 8:26 AM [employer] Adenoid cystic carcinoma of nasopharynx, NOS TOTAL PROTEIN Routine 01/01/2023 8:26 AM [employer] Adenoid cystic carcinoma of nasopharynx, NOS ASPARTATE AMINOTRANSFERASE Routine 01/01 8:26 AM [employer] Adenoid cystic carcinoma of nasopharynx, NOS ALANINE AMINOTRANSFERASE Routine 023 8:26 AM [employer] Adenoid cystic carcinoma of nasopharynx, NOS ALKALINE PHOSPHATASE Routine 01/01/2023 8:26 AM [employer] Adenoid cystic carcinoma of nasopharynx, NOS ALBUMIN LEVEL Routine 01/01/2023 8:26 AM [employer] Adenoid cystic carcinoma of nasopharynx, NOS CALCIUM LEVEL Routine 01/01/2023 8:26 AM [employer] Adenoid cystic carcinoma of nasopharynx, NOS .GLOMERULAR FILTRATION RATE Routine 01/01/2023 8:26 AM [employer] Adenoid cystic carcinoma of nasopharynx, NOS SERUM CREATININE Routine 01/01/2023 8:26 AM [employer] Adenoid cystic carcinoma of nasopharynx, NOS ELECTROLYTE PANEL Routine 01/01/2023 8:2 6 AM [employer] Adenoid cystic carcinoma of nasopharynx, NOS BLOOD UREA NITROGEN Routine 01/01/2023 8 :26 AM [employer] Adenoid cystic carcinoma of nasopharynx, NOS GLUCOSE LEVEL Routine 01/01/2023 8:26 AM [employer] Adenoid cystic carcinoma of nasopharynx, NOS PHOSPHORUS LEVEL Routine 01/01/2023 8:26 AM [employer] Adenoid cystic carcinoma of nasopharynx, NOS MAGNESIUM LEVEL Routine 01/01/2023 8:26 AM [employer] Adenoid cystic carcinoma of nasopharynx, NOS COMPLETE BLOOD COUNT W/ DIFFERENTIAL Routine 01/01/2023 8:26 AM [employer] Adenoid cystic carcinoma of nasopharynx, NOS COMPREHENSIVE METABOLIC PANEL Routine 01/01/2023 8:26 AM [employer] Adenoid cystic carcinoma of nasopharynx, NOS [place] VISUAL FIELD, INTERMEDIATE - OU - BOTH EYES Routine 12/29/2022 10:51 AM [employer] Sixth (abducent) nerve palsy, left eye OCT, OPTIC NERVE - OU - BOTH EYES Routine 12/29/2022 10:43 AM [employer] Sixth (abducent) nerve palsy, left eye OCT, RETINA - OU - BOTH EYES Routine 12/29/2022 10:43 AM [employer] Sixth (abducent) nerve palsy, left eye DIFFERENTIAL Routine 12/24/2022 9:16 AM [employer] Adenoid cystic carcinoma of nasopharynx, NOS .CBC Routine 12/24/2022 9:16 AM [employer] Adenoid cystic carcinoma of nasopharynx, NOS FRACTIONATED BILIRUBIN Routine 9:16 AM [employer] Adenoid cystic carcinoma of nasopharynx, NOS TOTAL PROTEIN Routine 12/24/2022 9:16 AM [employer] Adenoid cystic carcinoma of nasopharynx, NOS ASPARTATE AMINOTRANSFERASE Routine 12/24 9:16 AM [employer] Adenoid cystic carcinoma of nasopharynx, NOS ALANINE AMINOTRANSFERASE Routine 023 9:16 AM [employer] Adenoid cystic carcinoma of nasopharynx, NOS ALKALINE PHOSPHATASE Routine 12/24/2022 9:16 AM [employer] Adenoid cystic carcinoma of nasopharynx, NOS ALBUMIN LEVEL Routine 12/24/2022 9:16 AM [employer] Adenoid cystic carcinoma of nasopharynx, NOS CALCIUM LEVEL Routine 12/24/2022 9:16 AM [employer] Adenoid cystic carcinoma of nasopharynx, NOS .GLOMERULAR FILTRATION RATE Routine 12/24/2022 9:16 AM [employer] Adenoid cystic carcinoma of nasopharynx, NOS SERUM CREATININE Routine 12/24/2022 9:16 AM [employer] Adenoid cystic carcinoma of nasopharynx, NOS ELECTROLYTE PANEL Routine 12/24/2022 9:1 6 AM [employer] Adenoid cystic carcinoma of nasopharynx, NOS BLOOD UREA NITROGEN Routine 12/24/2022 9 :16 AM [employer] Adenoid cystic carcinoma of nasopharynx, NOS GLUCOSE LEVEL Routine 12/24/2022 9:16 AM [employer] Adenoid cystic carcinoma of nasopharynx, NOS PHOSPHORUS LEVEL Routine 12/24/2022 9:16 AM [employer] Adenoid cystic carcinoma of nasopharynx, NOS MAGNESIUM LEVEL Routine 12/24/2022 9:16 AM [employer] Adenoid cystic carcinoma of nasopharynx, NOS COMPLETE BLOOD COUNT W/ DIFFERENTIAL Routine 12/24/2022 9:16 AM [employer] Adenoid cystic carcinoma of nasopharynx, NOS COMPREHENSIVE METABOLIC PANEL Routine 12/24/2022 9:16 AM [employer] Adenoid cystic carcinoma of nasopharynx, NOS COVID-19 (SARS-COV-2) PCR - ASYMPTOMATIC - MC Routine 12/23/2022 12:01 PM [employer] Suspected COVID-19 POC GLUCOSE SCREEN Routine 12/15/2022 6: 07 PM [employer] POC GLUCOSE SCREEN Routine 12/15/2022 12:52 PM [employer] OCT, OPTIC NERVE - OU - BOTH EYES Routine 12/15/2022 10:37 AM [employer] Diplopia OCT, RETINA - OU - BOTH EYES Routine 12/15/2022 10:37 AM [employer] Diplopia FUNDUS PHOTOS - OU - BOTH EYES Routine 12/15/2022 10:37 AM [employer] Diplopia 3D DENTAL IMAGING (ICAT) Routine 023 8:42 AM [employer] Encounter for observation for other suspected disease ruled out POC GLUCOSE SCREEN Routine 12/15/2022 7: 19 AM [employer] POC GLUCOSE SCREEN Routine 12/15/2022 6: 12 AM [employer] DIFFERENTIAL AM 12/15/2022 3:44 AM [employer] .CBC AM 12/15/2022 3:44 AM [employer] CALCIUM LEVEL AM 12/15/2022 3:44 AM [employer] .GLOMERULAR FILTRATION RATE AM 12/15/2022 3:44 AM [employer] SERUM CREATININE AM 12/15/2022 3:44 AM [employer] ELECTROLYTE PANEL AM 12/15/2022 3:4 4 AM [employer] BLOOD UREA NITROGEN AM 12/15/2022 3 :44 AM [employer] GLUCOSE LEVEL AM 12/15/2022 3:44 AM [employer] COMPLETE BLOOD COUNT W/ DIFFERENTIAL AM 12/15/2022 3:44 AM [employer] PHOSPHORUS LEVEL AM 12/15/2022 3:44 AM [employer] MAGNESIUM LEVEL AM 12/15/2022 3:44 AM [employer] BASIC METABOLIC PANEL, CALCIUM TOTAL AM 12/15/2022 3:44 AM [employer] POC GLUCOSE SCREEN Routine 12/15/2022 2: 28 AM [employer] POC GLUCOSE SCREEN Routine 12/14/2022 10:04 PM [employer] POC GLUCOSE SCREEN Routine 12/14/2022 5: 26 PM [employer] POC GLUCOSE SCREEN Routine 12/14/2022 4:14 PM [employer] FL MODIFIED BARIUM SWALLOW W SPEECH Routine 12/14/2022 2:37 PM [employer] POC GLUCOSE SCREEN Routine 12/14/2022 12:08 PM [employer] GENERAL LABORATORY ADD ON TEST Routine 12/14/2022 8:03 AM [employer] POC GLUCOSE SCREEN Routine 12/14/2022 7: 25 AM [employer] POC GLUCOSE SCREEN Routine 12/14/2022 5: 55 AM [employer] FRACTIONATED BILIRUBIN AM 4:46 AM [employer] TOTAL PROTEIN AM 12/14/2022 4:46 AM [employer] ASPARTATE AMINOTRANSFERASE AM 12/14 4:46 AM [employer] ALANINE AMINOTRANSFERASE AM 023 4:46 AM [employer] ALKALINE PHOSPHATASE AM 12/14/2022 4:46 AM [employer] ALBUMIN LEVEL AM 12/14/2022 4:46 AM [employer] DIFFERENTIAL AM 12/14/2022 4:46 AM [employer] .CBC AM 12/14/2022 4:46 AM [employer] CALCIUM LEVEL AM 12/14/2022 4:46 AM [employer] .GLOMERULAR FILTRATION RATE AM 12/14/2022 4:46 AM [employer] SERUM CREATININE AM 12/14/2022 4:46 AM [employer] ELECTROLYTE PANEL AM 12/14/2022 4:4 6 AM [employer] BLOOD UREA NITROGEN AM 12/14/2022 4 :46 AM [employer] GLUCOSE LEVEL AM 12/14/2022 4:46 AM [employer] COMPLETE BLOOD COUNT W/ DIFFERENTIAL AM 12/14/2022 4:46 AM [employer] PHOSPHORUS LEVEL AM 12/14/2022 4:46 AM [employer] MAGNESIUM LEVEL AM 12/14/2022 4:46 AM [employer] BASIC METABOLIC PANEL, CALCIUM TOTAL AM 12/14/2022 4:46 AM [employer] POC GLUCOSE SCREEN Routine 12/14/2022 1: 36 AM [employer] POC GLUCOSE SCREEN Routine 12/13/2022 9: 56 PM [employer] POC GLUCOSE SCREEN Routine 12/13/2022 6: 31 PM [employer] POC GLUCOSE SCREEN Routine 12/13/2022 1: 24 PM [employer] POC GLUCOSE SCREEN Routine 12/13/2022 8: 02 AM [employer] POC GLUCOSE SCREEN Routine 12/13/2022 5: 58 AM [employer] POC GLUCOSE SCREEN Routine 12/13/2022 3: 24 AM [employer] DIFFERENTIAL AM 12/13/2022 3:12 AM [employer] .CBC AM 12/13/2022 3:12 AM [employer] CALCIUM LEVEL AM 12/13/2022 3:12 AM [employer] .GLOMERULAR FILTRATION RATE AM 12/13/2022 3:12 AM [employer] SERUM CREATININE AM 12/13/2022 3:12 AM [employer] ELECTROLYTE PANEL AM 12/13/2022 3:1 2 AM [employer] BLOOD UREA NITROGEN AM 12/13/2022 3 :12 AM [employer] GLUCOSE LEVEL AM 12/13/2022 3:12 AM [employer] COMPLETE BLOOD COUNT W/ DIFFERENTIAL AM 12/13/2022 3:12 AM [employer] PHOSPHORUS LEVEL AM 12/13/2022 3:12 AM [employer] MAGNESIUM LEVEL AM 12/13/2022 3:12 AM [employer] BASIC METABOLIC PANEL, CALCIUM TOTAL AM 12/13/2022 3:12 AM [employer] POC GLUCOSE SCREEN Routine 12/12/2022 9: 43 PM [employer] POC GLUCOSE SCREEN Routine 12/12/2022 6: 16 PM [employer] POC GLUCOSE SCREEN Routine 12/12/2022 12:52 PM [employer] POC GLUCOSE SCREEN Routine 12/12/2022 7: 47 AM [employer] POC GLUCOSE SCREEN Routine 12/12/2022 5: 52 AM [employer] DIFFERENTIAL AM 12/12/2022 4:30 AM [employer] .CBC AM 12/12/2022 4:30 AM [employer] CALCIUM LEVEL AM 12/12/2022 4:30 AM [employer] .GLOMERULAR FILTRATION RATE AM 12/12/2022 4:30 AM [employer] SERUM CREATININE AM 12/12/2022 4:30 AM [employer] ELECTROLYTE PANEL AM 12/12/2022 4:3 0 AM [employer] BLOOD UREA NITROGEN AM 12/12/2022 4 :30 AM [employer] GLUCOSE LEVEL AM 12/12/2022 4:30 AM [employer] COMPLETE BLOOD COUNT W/ DIFFERENTIAL AM 12/12/2022 4:30 AM [employer] PHOSPHORUS LEVEL AM 12/12/2022 4:30 AM [employer] MAGNESIUM LEVEL AM 12/12/2022 4:30 AM [employer] BASIC METABOLIC PANEL, CALCIUM TOTAL AM 12/12/2022 4:30 AM [employer] POC GLUCOSE SCREEN Routine 12/12/2022 2: 06 AM [employer] POC GLUCOSE SCREEN Routine 12/11/2022 10:01 PM [employer] LACTIC ACID, VENOUS Timed Study 12/11/2022 9 :50 PM [employer] LIPASE LEVEL STAT 12/11/2022 6:21 PM [employer] BLOOD GAS VENOUS STAT 12/11/2022 6:21 PM [employer] POC GLUCOSE SCREEN Routine 12/11/2022 6: 10 PM [employer] GENERAL LABORATORY ADD ON TEST Routine 12/11/2022 5:39 PM [employer] KETONE BODIES QUALITATIVE STAT 2022 5:19 PM [employer] POC GLUCOSE SCREEN Routine 12/11/2022 4: 51 PM [employer] LIPASE LEVEL STAT 12/11/2022 4:33 PM [employer] ELECTROLYTE PANEL STAT 12/11/2022 4:3 3 PM [employer] LACTIC ACID, VENOUS Timed Study 12/11/2022 4 :33 PM [employer] POC GLUCOSE SCREEN Routine 12/11/2022 3: 34 PM [employer] POC CRITICAL Routine 12/11/2022 3:34 PM [employer] POC GLUCOSE SCREEN Routine 12/11/2022 2: 33 PM [employer] POC CRITICAL Routine 12/11/2022 2:33 PM [employer] POC GLUCOSE SCREEN Routine 12/11/2022 12:35 PM [employer] POC GLUCOSE SCREEN Routine 12/11/2022 8: 14 AM [employer] LACTIC ACID, VENOUS Routine 12/11/2022 4 :37 AM [employer] DIFFERENTIAL AM 12/11/2022 4:30 AM [employer] .CBC AM 12/11/2022 4:30 AM [employer] CALCIUM LEVEL AM 12/11/2022 4:30 AM [employer] .GLOMERULAR FILTRATION RATE AM 12/11/2022 4:30 AM [employer] SERUM CREATININE AM 12/11/2022 4:30 AM [employer] ELECTROLYTE PANEL AM 12/11/2022 4:3 0 AM [employer] BLOOD UREA NITROGEN AM 12/11/2022 4 :30 AM [employer] GLUCOSE LEVEL AM 12/11/2022 4:30 AM [employer] COMPLETE BLOOD COUNT W/ DIFFERENTIAL AM 12/11/2022 4:30 AM [employer] PHOSPHORUS LEVEL AM 12/11/2022 4:30 AM [employer] MAGNESIUM LEVEL AM 12/11/2022 4:30 AM [employer] BASIC METABOLIC PANEL, CALCIUM TOTAL AM 12/11/2022 4:30 AM [employer] POC GLUCOSE SCREEN Routine 12/11/2022 1: 20 AM [employer] POC GLUCOSE SCREEN Routine 12/10/2022 10:00 PM [employer] POC GLUCOSE SCREEN Routine 12/10/2022 6: 29 PM [employer] POC GLUCOSE SCREEN Routine 12/10/2022 5: [address] HEAD WO CONTRAST STAT 12/10/2022 3 :21 PM [employer] POC GLUCOSE SCREEN Routine 12/10/2022 1: 45 PM [employer] POC GLUCOSE SCREEN Routine 12/10/2022 11:35 AM [employer] POC GLUCOSE SCREEN Routine 12/10/2022 7: 30 AM [employer] URINALYSIS WITH MICROSCOPIC IF INDICATED Routine 12/10/2022 6:13 AM [employer] URINE CULTURE Routine 12/10/2022 6:13 AM [employer] DIFFERENTIAL STAT 12/10/2022 5:13 AM [employer] .CBC STAT 12/10/2022 5:13 AM [employer] CALCIUM LEVEL AM 12/10/2022 5:13 AM [employer] .GLOMERULAR FILTRATION RATE AM 12/10/2022 5:13 AM [employer] SERUM CREATININE AM 12/10/2022 5:13 AM [employer] ELECTROLYTE PANEL AM 12/10/2022 5:1 3 AM [employer] BLOOD UREA NITROGEN AM 12/10/2022 5 :13 AM [employer] GLUCOSE LEVEL AM 12/10/2022 5:13 AM [employer] HEMOGLOBIN A1C Routine 12/10/2022 5:13 AM [employer] COMPLETE BLOOD COUNT W/ DIFFERENTIAL AM 12/10/2022 5:13 AM [employer] PHOSPHORUS LEVEL AM 12/10/2022 5:13 AM [employer] MAGNESIUM LEVEL AM 12/10/2022 5:13 AM [employer] BASIC METABOLIC PANEL, CALCIUM TOTAL AM 12/10/2022 5:13 AM [employer] POC GLUCOSE SCREEN Routine 12/10/2022 1: 38 AM [employer] POC GLUCOSE SCREEN Routine 12/09/2022 11:18 PM [employer] POC VENOUS BLOOD GAS + LACTATE Routine 12/09/2022 9:36 PM [employer] FRACTIONATED BILIRUBIN Routine 6:01 PM [employer] TOTAL PROTEIN Routine 12/09/2022 6:01 PM [employer] ASPARTATE AMINOTRANSFERASE Routine 12/09 6:01 PM [employer] ALANINE AMINOTRANSFERASE Routine 023 6:01 PM [employer] ALKALINE PHOSPHATASE Routine 12/09/2022 6:01 PM [employer] ALBUMIN LEVEL Routine 12/09/2022 6:01 PM [employer] CALCIUM LEVEL Routine 12/09/2022 6:01 PM [employer] .GLOMERULAR FILTRATION RATE Routine 12/09/2022 6:01 PM [employer] SERUM CREATININE Routine 12/09/2022 6:01 PM [employer] ELECTROLYTE PANEL Routine 12/09/2022 6:0 1 PM [employer] BLOOD UREA NITROGEN Routine 12/09/2022 6 :01 PM [employer] GLUCOSE LEVEL Routine 12/09/2022 6:01 PM [employer] DIFFERENTIAL STAT 12/09/2022 6:01 PM [employer] .CBC STAT 12/09/2022 6:01 PM [employer] LACTATE DEHYDROGENASE Routine 12/09/2022 6:01 PM [employer] APTT Routine 12/09/2022 6:01 PM [employer] PROTHROMBIN TIME Routine 12/09/2022 6:01 PM [employer] PHOSPHORUS LEVEL Routine 12/09/2022 6:01 PM [employer] MAGNESIUM LEVEL Routine 12/09/2022 6:01 PM [employer] COMPREHENSIVE METABOLIC PANEL Routine 12/09/2022 6:01 PM [employer] COMPLETE BLOOD COUNT W/ DIFFERENTIAL Routine 12/09/2022 6:01 PM [employer] AMMONIA LEVEL Routine 12/09/2022 6:01 PM [employer] COVID-19 (SARS-COV-2)PCR - ASYMPTOMATIC - LT Routine 12/09/2022 6:01 PM [employer] HP MOLECULAR BLOOD COLLECTION Routine 12/04/2022 10:56 AM [employer] ANA CRISTINA GRIFFIN SOLID TUMOR GENOMIC ASSAY FUSIONS 2018 INTERPRETATION AND REPORT Routine 12/04/2022 10:56 AM [employer] ANA CRISTINA GRIFFIN MDA CHRISTINE MUTATION ANALYSIS PRECISION PANEL INTERPRETATION AND REPORT Routine 12/04/2022 10:56 AM [employer] MRI SKULL BASE WITH AND WITHOUT CONTRAST Routine 11/30/2022 11:12 AM [employer] Adenocarcinoma of nasopharynx PETCT F18 FDG ([id number]) WITH CONTRAST Routine 11/27/2022 3:57 PM [employer] 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 POC GLUCOSE SCREEN Routine 11/27/2022 1: 06 PM [employer] POC GLUCOSE SCREEN Routine 11/27/2022 12:29 PM [employer] FRACTIONATED BILIRUBIN Routine 1:07 PM [employer] Adenocarcinoma of nasopharynx TOTAL PROTEIN Routine 11/26/2022 1:07 PM [employer] Adenocarcinoma of nasopharynx ASPARTATE AMINOTRANSFERASE Routine 11/26 1:07 PM [employer] Adenocarcinoma of nasopharynx ALANINE AMINOTRANSFERASE Routine 023 1:07 PM [employer] Adenocarcinoma of nasopharynx ALKALINE PHOSPHATASE Routine 11/26/2022 1:07 PM [employer] Adenocarcinoma of nasopharynx ALBUMIN LEVEL Routine 11/26/2022 1:07 PM [employer] Adenocarcinoma of nasopharynx CALCIUM LEVEL Routine 11/26/2022 1:07 PM [employer] Adenocarcinoma of nasopharynx .GLOMERULAR FILTRATION RATE Routine 11/26/2022 1:07 PM [employer] Adenocarcinoma of nasopharynx SERUM CREATININE Routine 11/26/2022 1:07 PM [employer] Adenocarcinoma of nasopharynx ELECTROLYTE PANEL Routine 11/26/2022 1:0 7 PM [employer] Adenocarcinoma of nasopharynx BLOOD UREA NITROGEN Routine 11/26/2022 1 :07 PM [employer] Adenocarcinoma of nasopharynx GLUCOSE LEVEL Routine 11/26/2022 1:07 PM [employer] Adenocarcinoma of nasopharynx DIFFERENTIAL Routine 11/26/2022 1:07 PM [employer] Adenocarcinoma of nasopharynx .CBC Routine 11/26/2022 1:07 PM [employer] Adenocarcinoma of nasopharynx PROTHROMBIN TIME Routine 11/26/2022 1:07 PM [employer] Adenocarcinoma of nasopharynx APTT Routine 11/26/2022 1:07 PM [employer] Adenocarcinoma of nasopharynx THYROID STIMULATING HORMONE Routine 11/26/2022 1:07 PM [employer] Adenocarcinoma of nasopharynx VITAMIN D 25 HYDROXY LEVEL Routine 11/26 1:07 PM [employer] Adenocarcinoma of nasopharynx URIC ACID Routine 11/26/2022 1:07 PM [employer] Adenocarcinoma of nasopharynx PHOSPHORUS LEVEL Routine 11/26/2022 1:07 PM [employer] Adenocarcinoma of nasopharynx MAGNESIUM LEVEL Routine 11/26/2022 1:07 PM [employer] Adenocarcinoma of nasopharynx LACTATE DEHYDROGENASE Routine 11/26/2022 1:07 PM [employer] Adenocarcinoma of nasopharynx FREE THYROXINE Routine 11/26/2022 1:07 PM [employer] Adenocarcinoma of nasopharynx COMPREHENSIVE METABOLIC PANEL Routine 11/26/2022 1:07 PM [employer] Adenocarcinoma of nasopharynx COMPLETE BLOOD COUNT W/ DIFFERENTIAL Routine 11/26/2022 1:07 PM [employer] Adenocarcinoma of nasopharynx NGS BLOOD CONTROL Routine 11/26/2022 1:07 PM [employer] Adenocarcinoma of nasopharynx AP IHC HER2/ARCENIO MATERIAL REQUEST Routine 11/26/2022 12:43 PM [employer] Adenocarcinoma of nasopharynx AP IHC PD-L1 MATERIAL REQUEST Routine 11/26/2022 12:43 PM [employer] Adenocarcinoma of nasopharynx AP PTEN MUTATION MATERIAL REQUEST Routine 11/26/2022 12:43 PM [employer] Adenocarcinoma of nasopharynx ANA CRISTINA GRIFFIN MTOR MATERIAL REQUEST Routine 11/26/2022 12:43 PM [employer] Adenocarcinoma of nasopharynx ANA CRISTINA GRIFFIN ERBB2 MUTATION ANALAYSIS MATERIAL REQUEST Routine 11/26/2022 12:43 PM [employer] Adenocarcinoma of nasopharynx ANA CRISTINA GRIFFIN EGFR MUTATION MATERIAL REQUEST Routine 11/26/2022 12:43 PM [employer] Adenocarcinoma of nasopharynx ANA CRISTINA GRIFFIN ALK MUTATION ANALAYSIS MATERIAL REQUEST Routine 11/26/2022 12:43 PM [employer] Adenocarcinoma of nasopharynx ANA CRISTINA GRIFFIN NTRK3 FUSION ANALYSIS MATERIAL REQUEST Routine 11/26/2022 12:43 PM [employer] Adenocarcinoma of nasopharynx ANA CRISTINA GRIFFIN NTRK2 FUSION ANALYSIS MATERIAL REQUEST Routine 11/26/2022 12:43 PM [employer] Adenocarcinoma of nasopharynx ANA CRISTINA GRIFFIN NTRK1 FUSION ANALYSIS MATERIAL REQUEST Routine 11/26/2022 12:43 PM [employer] Adenocarcinoma of nasopharynx DIFFERENTIAL Routine 11/17/2022 12:11 PM [employer] Adenocarcinoma of nasopharynx .CBC Routine 11/17/2022 12:11 PM [employer] Adenocarcinoma of nasopharynx FRACTIONATED BILIRUBIN Routine 12:11 PM [employer] Adenocarcinoma of nasopharynx TOTAL PROTEIN Routine 11/17/2022 12:11 PM [employer] Adenocarcinoma of nasopharynx ASPARTATE AMINOTRANSFERASE Routine 11/17 12:11 PM [employer] Adenocarcinoma of nasopharynx ALANINE AMINOTRANSFERASE Routine 023 12:11 PM [employer] Adenocarcinoma of nasopharynx ALKALINE PHOSPHATASE Routine 11/17/2022 12:11 PM [employer] Adenocarcinoma of nasopharynx ALBUMIN LEVEL Routine 11/17/2022 12:11 PM [employer] Adenocarcinoma of nasopharynx CALCIUM LEVEL Routine 11/17/2022 12:11 PM [employer] Adenocarcinoma of nasopharynx .GLOMERULAR FILTRATION RATE Routine 11/17/2022 12:11 PM [employer] Adenocarcinoma of nasopharynx SERUM CREATININE Routine 11/17/2022 12:11 PM [employer] Adenocarcinoma of nasopharynx ELECTROLYTE PANEL Routine 11/17/2022 12:11 PM [employer] Adenocarcinoma of nasopharynx BLOOD UREA NITROGEN Routine 11/17/2022 12:11 PM [employer] Adenocarcinoma of nasopharynx GLUCOSE LEVEL Routine 11/17/2022 12:11 PM [employer] Adenocarcinoma of nasopharynx PROLACTIN Routine 11/17/2022 12:11 PM [employer] Adenocarcinoma of nasopharynx INSULIN-LIKE GROWTH FACTOR 1 Routine 11/17/2022 12:11 PM [employer] Adenocarcinoma of nasopharynx TRIIODOTHYRONINE Routine 11/17/2022 12:11 PM [employer] Adenocarcinoma of nasopharynx FREE THYROXINE Routine 11/17/2022 12:11 PM [employer] Adenocarcinoma of nasopharynx THYROID STIMULATING HORMONE Routine 11/17/2022 12:11 PM [employer] Adenocarcinoma of nasopharynx LUTEINIZING HORMONE Routine 11/17/2022 12:11 PM [employer] Adenocarcinoma of nasopharynx FOLLICLE STIMULATING HORMONE LEVEL Routine 11/17/2022 12:11 PM [employer] Adenocarcinoma of nasopharynx TESTOSTERONE LEVEL Routine 11/17/2022 12:11 PM [employer] Adenocarcinoma of nasopharynx ESTRADIOL LEVEL Routine 11/17/2022 12:11 PM [employer] Adenocarcinoma of nasopharynx ADRENOCORTICOTROPIC HORMONE Routine 11/17/2022 12:11 PM [employer] Adenocarcinoma of nasopharynx CORTISOL, TOTAL Routine 11/17/2022 12:11 PM [employer] Adenocarcinoma of nasopharynx PROTHROMBIN TIME Routine 11/17/2022 12:11 PM [employer] Adenocarcinoma of nasopharynx APTT Routine 11/17/2022 12:11 PM [employer] Adenocarcinoma of nasopharynx COMPLETE BLOOD COUNT W/ DIFFERENTIAL Routine 11/17/2022 12:11 PM [employer] Adenocarcinoma of nasopharynx COMPREHENSIVE METABOLIC PANEL Routine 11/17/2022 12:11 PM [employer] Adenocarcinoma of nasopharynx HEPATITIS C VIRUS ANTIBODY Routine 11/17 12:11 PM [employer] Adenocarcinoma of nasopharynx PATHOLOGY OUTSIDE INTERPRETATION Routine 10/16/2022 after 10/06/2022 Results * MRI Orbits with and without Contrast (09/13/2023 11:51 AM [employer]) Only the most recent of2 resultswithin the time period is included. Anatomical Region Laterality Modality Head Magnetic Resonan ce 09/13/2023 12:1 1 PM [employer] Impressions 09/13/2023 12:37 PM [employer] Probable stable posttreatment changes given patient motion. No cervical adenopathy. ACTIONABLE ITEMS/RECOMMENDATIONS: None. Narrative 09/13/2023 12:37 PM [employer] FULL RESULT: Examination: MRI ORBITS W WO CONTRAST on 09/13/2023 11:51 AM. 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 INDICATION: surveillance nasopharynx carcinoma COMPARISON: 04/22/2023 and 11/30/2022. TECHNIQUE: MRI of the orbits without and with intravenous contrast was performed. FINDINGS: Moderate patient motion due to snoring. Primary site: The enhancing lobulated soft tissue in the left nasopharynx has resolved since 11/30/2022. Mild [...] Intracranial: Visible portions of the brain are normal. The flow voids are preserved. Extracranial: T2 hyperintense mucosal thickening in the sphenoid sinuses. Stable bilateral mastoid fluid. No retropharyngeal or cervical adenopathy given motion. Procedure Note Elina Christie MD - 09/13/2023 FULL RESULT: Examination: MRI ORBITS W WO CONTRAST on 09/13/2023 11:51 AM. 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 Adenoidcystic carcinoma of the left nasopharynx status post chemoradiationcompleted 02/12/2023. INDICATION: surveillance nasopharynx carcinoma COMPARISON: 04/22/2023 and 11/30/2022. TECHNIQUE: MRI of the orbits without and with intravenous contrast wasperformed. FINDINGS: Moderate patient motion due to snoring. Primary site: The enhancing lobulated soft tissue in the left nasopharynx has resolvedsince 11/30/2022. Mild residual asymmetry is believed to be treatment -related, stable since 04/22/2023. Bone/Neural foramina: Subtle asymmetric abnormal marrow signal and enhancement in the left skullbase marked on series 2, image 25 is also stable appearing sclerotic on CTfrom 02/11/2023. Symmetric enhancement of bilateral cavernous sinuses andforamen ovale. Intracranial: Visible portions of the brain are normal. The flow voids are preserved. Extracranial: T2 hyperintense mucosal thickening in the sphenoid sinuses. Stable bilateral mastoid fluid. No retropharyngeal or cervical adenopathy given motion. IMPRESSION: Probable stable posttreatment changes given patient motion. No cervical adenopathy. ACTIONABLE ITEMS/RECOMMENDATIONS: None. Lindy GALE IMG MRI ORDERA BLES * IGF-1 (09/13/2023 9:29 AM [employer]) Only the most recent of3 resultswithin the time period is included. IGF-1, LC/MS, S 134 37 - 208 ng/mL 09/16/2023 4:11 PM [facility] JAEL IGF Z-score 0.84 -2.0 - 2.0 SD 09/16/2023 4:11 PM [facility] PRATIK LEON Comment: ADDITIONAL INFORMATION This test was developed and its performance characteristics determined by [facility] in a manner consistent with CLIA requirements. This test has not been cleared or approved by the U.S. Food and Drug Administration. Test Performed by: [facility] [address] [place] [address] [employer]: Yonathan Guzman M.D. Ph.D.; CLIA# [id number] Blood Venipuncture / Unknown 09/13/2023 9:29 AM [employer] 09/13/2023 9:29 AM [employer] Lindy GALE LAB BLOOD ORDLacho [place] Performing Organization Address [facility] de Phone Number [facility] PRATIK LEON * ACTH (09/13/2023 9:29 AM TR[employer]IC) Only the most recent of4 resultswithin the time period is included. [facility] ACTH 16 7 - 63 pg/mL 09/13/2023 10:16 AM [facility] Blood Venipuncture / Unknown 09/13/2023 9:29 AM TR[employer]IC 09/13/2023 9:29 AM RUST Yan [place] - 09/13/2023 10:16 AM RUST Reference range established based on adult population (7 - 10am draws). No established reference values for p.m. draws. Results greater than 1826 pg/mL may not be reliable due to matrix effect with extended dilution as it exceeds the cilnical scientist's recommended limit. ACTH reference intervals are established for the morning hours from 7-10 am. Due to the circadian rhythm of ACTH levels in plasma, the sample collection time must be noted. Caution should be exercised when interpreting such values and done in conjunction with clinical context. Lindy GALE LAB BLOOD LUIS ENRIQUE [place] Performing Organization Address [facility] Co de Phone Number [facility] [address] [facility], [facility] [address] [place] [address] * Prolactin (09/13/2023 9:29 AM TR[employer]IC) Only the most recent of3 resultswithin the time period is included. Prolactin Level 17.4 4.8 - 23.3 ng/mL 09/13/2023 2:43 PM [employer] [facility] Blood Venipuncture / Unknown 09/13/2023 9:29 AM [employer]IC 09/13/2023 9:29 AM [employer]IC Narrative [facility] - 09/13/2023 2:43 PM [employer]IC Results greater than 4700.0 ng/mL may not be reliable due to matrix effect with extended dilution as it exceeds the cilnical scientist s recommended limit. Caution should be exercised when interpreting such values and done in conjunction with clinical context. Lindy GALE LAB BLOOD LUIS ENRIQUE [place] Performing Organization Address City/State/[facility] Co de Phone Number [facility] Unless otherwise noted, all lab tests performed by: Division of Pathology and Laboratory Medicine [address] [place] [id number] * Estradiol (Women) (09/13/2023 9:29 AM TR[employer]IC) Only the most recent of3 resultswithin the time period is included. Estradiol <11 pg/mL 09/13/2023 2:4 3 PM [employer] [facility] Blood Venipuncture / Unknown 09/13/2023 9:29 AM TR[employer] MECH[employer]IC 09/13/2023 9:29 AM [employer] ME[employer]IC Narrative [facility] - 09/13/2023 2:43 PM [employer]IC Estradiol Reference Ranges Adult Female: Follicular: 31 - 90 pg/mL Luteal: 60 - 232 pg/mL Ovulation: 60 - 533 pg/mL Postmenopause: < 138 pg/ml Patients treated with Fulvestrant will show falsely increase in estradiol concentrations due to cross-reaction. For further information or assistance, please contact pathologist. Lindy GALE LAB BLOOD ORDE [place] [facility] Unless otherwise noted, all lab tests performed by: Division of Pathology and Laboratory Medicine [address] [place] [id number] * Total T3 (09/13/2023 9:29 AM TR[employer]IC) Only the most recent of3 resultswithin the time period is included. Triiodothyronine 110 80 - 200 ng/dL 09/13/2023 10:12 AM [employer] [place] Blood Venipuncture / Unknown 09/13/2023 9:29 AM [employer]IC 09/13/2023 9:29 AM [employer]IC Lindy GALE LAB BLOOD ORDE NOR[place] [address] [address] * TSH (09/13/2023 9:29 AM TR[employer] MECH[employer]IC) Only the most recent of4 resultswithin the time period is included. Thyroid Stimulating Hormone 1.68 0.27 - 4.20 mcunit/mL 09/13/2023 10:12 AM [employer] [place] Blood Venipuncture / Unknown 09/13/2023 9:29 AM TR[employer] ME[employer]IC 09/13/2023 9:29 AM [employer]IC Lindy GALE LAB BLOOD ORDE NOR[place] [address] [address] * Free T4 (09/13/2023 9:29 AM TR[employer] MECH[employer]IC) Only the most recent of4 resultswithin the time period is included. T4 (Thyroxine) Free 1.15 0.93 - 1.70 ng/dL 09/13/2023 10:12 AM [facility] Blood Venipuncture / Unknown 09/13/2023 9:29 AM TR[employer] MECH[employer]IC 09/13/2023 9:29 AM [employer] MECH[employer]IC Lindy GALE LAB BLOOD ORDE NORMAN [facility] [address] [facility], [facility] [address] [place] [address] * LH (09/13/2023 9:29 AM TR[employer] MECHANIC) Only the most recent of3 resultswithin the time period is included. Luteinizing Hormone 19.9 mIU/mL 09/13/2023 2:43 PM [employer]IC [facility] Blood Venipuncture / Unknown 09/13/2023 9:29 AM TR[employer] MECH[employer]IC 09/13/2023 9:29 AM TR[employer] MECHANIC Narrative [facility] - 09/13/2023 2:43 PM [employer]CH[employer]IC Luteinizing Hormone Reference Ranges Female: Follicular: 2.4 - 12.6 mIU/mL Luteal: 1.0 - 11.4 mIU/mL Ovulation: 14.0 - 95.6 mIU/mL Post-menopause: 7.7 - 58.5 mIU/mL Lindy DENNEY BLOOD LUIS ENRIQUE [place] [facility] Unless otherwise noted, all lab tests performed by: Division of Pathology and Laboratory Medicine [address] [place] [id number] * FSH (09/13/2023 9:29 AM TR[employer] MECHANIC) Only the most recent of3 resultswithin the time period is included. Follicle Stimulating Hormone 37.5 mIU/mL 09/13/2023 2:43 PM [employer] MECH[employer]IC [facility] Blood Venipuncture / Unknown 09/13/2023 9:29 AM TR[employer] SHOP MECHANIC 09/13/2023 9:29 AM TR[employer] SH[employer] MECHANIC Narrative [facility] - 09/13/2023 2:43 PM [employer] MECH[employer]IC Follicle Stimulating Hormone Reference Ranges Female: Follicular: 3.5 - 12.5 mIU/mL Luteal: 1.7 - 7.7 mIU/mL Ovulation: 4.7 - 21.5 mIU/mL Post-menopause: 25.8 - 134.8 mIU/mL Lindy GALE LAB BLOOD ORDLacho NORMAN [facility] Unless otherwise noted, all lab tests performed by: Division of Pathology and Laboratory Medicine [address] [place] [id number] * (ABNORMAL) Total Cortisol (09/13/2023 9:29 AM TR[employer] MECHANIC) Only the most recent of4 resultswithin the time period is included. Cortisol 4.24(L) 4.82 - 19.50 mcg/dL 09/13/2023 10:12 AM [employer]IC [place] Blood Venipuncture / Unknown 09/13/2023 9:29 AM TR[employer] MECH[employer]IC 09/13/2023 9:29 AM TR[employer] MECH[employer]IC [facility] - 09/13/2023 10:12 AM TR[employer] MECH[employer]IC Cortisol reference intervals are established for the [...] - 11.9 mcg/dL Lindy GALE LAB BLOOD LUIS ENRIQUE [place] Performing Organization Address City/[facility] Co de Phone Number [address], [facility] [address] [place] [address] * .Serum Creatinine (04/22/2023 12:28 PM CDT) Only the most recent of44 resultswithin the time period is included. Creatinine 0.80 0.51 - 0.95 mg/dL [place] Comment:Testing performed at [facility], [address] [place] [address], [place] [address] Blood 04/22/2023 12:2 8 PM CDT 04/22/2023 12:29 PM CDT Narrative [place] - 04/22/2023 1:04 PM CDT Coordinate all on same day. Ok to schedule 1-2 weeks following 04/14 to coordinate appts Winter Luu MD LAB BLOOD ORDERABL ES [place] [address], [facility] [address] [place] [address] * (ABNORMAL) .CBC (04/22/2023 12:28 PM CDT) Only the most recent of44 resultswithin the time period is included. WBC 6.5 4.0 - 11.0 K/uL [place] Comment:All components of th e CBC performed at [facility], [address] [place] [address] RBC 4.39 4.00 - 5.50 M/uL [place] Comment:All components of th e CBC performed at [facility], [address] [place] [address] Hgb 14.3 12.0 - 16.0 gm/dL [place] Comment:As part of CBC or as an individual orderable testing performed at [facility], [address] [place] [address] Hct 43.7 37.0 - 47.0 % [place] Comment:As part of CBC testi ng performed at [facility], [address] [place] [address] MCV 100(H) 82 - 98 fL [place] Comment:As part of CBC testi ng performed at [facility], [address] [place] [address] MCH 32.6(H) 27.0 - 31.0 pg [place] Comment:As part of CBC testi ng performed at [facility], [address] [place] [address] MCHC 32.7 31.0 - 36.0 gm/dL [place] Comment:As part of CBC testi ng performed at [facility], [address] [place] [address] RDW-SD 45.6 35.1 - 46.3 fL [place] Comment:As part of CBC testi ng performed at [facility], [address] [place], [place] [id number] RDW-CV 12.1 12.0 - 15.5 % [place] Comment:As part of CBC testi ng performed at [facility], [address] [place], [place] [id number] Platelet count 150 140 - 440 K/uL [place] Comment:As part of CBC or an individual orderable testing performed at [facility], [address] [place] [address] MPV 9.6 4.0 - 10.4 fL [place] Comment:As part of CBC testi ng performed at [facility], [address] [place] [address] Blood 04/22/2023 12:2 8 PM CDT 04/22/2023 12:29 PM CDT Narrative [place] - 04/22/2023 12:33 PM CDT Coordinate all on same day. Ok to schedule 1-2 weeks following 04/14 to coordinate appts Winter Luu MD LAB BLOOD ORDERABL ES [facility] [address], [facility] [address] [place] [address] * Glomerular Filtration Rate (04/22/2023 12:28 PM CDT) Only the most recent of44 resultswithin the time period is included. eGFR 86 >=60 mL/min/1.7 3 sq. m [place] Comment: The eGFRcr is calculated with the 2020 CKD-EPI creatinine equation using creatinine, patient's age, and sex for adults 18 years of age and older. Other factors, especially muscle mass, may affect accuracy and need to be considered. According to the Kidney Disease: Improving Global Outcomes (KDIGO) CKD Work Group 2012 Clinical Practice Guideline, chronic kidney disease (CKD) is defined as the abnormalities of kidney structure or function, present for more than 3 months, with implications for health. CKD should be classified by cause, GFR category, and albuminuria category. KDIGO guidelines provide the following GFR categories Stage Description GFR mL/min/1.73 m2 G1* Normal or high >= 90 G2* Mildly decreased 60-89 G3a Mildly to moderately decreased 45-59 G3b Moderately to severely decreased 30-44 G4 Severely decreased 15-29 G5 Kidney failure <15 *In the absence of evidence of kidney damage, neither G1 nor G2 fulfill criteria for CKD. Testing performed at [facility], [address] [place] [address] Blood 04/22/2023 12:2 8 PM CDT 04/22/2023 12:29 PM CDT Narrative [place] - 04/22/2023 1:04 PM CDT Coordinate all on same day. Ok to schedule 1-2 weeks following 04/14 to coordinate appts Winter Luu MD LAB BLOOD ORDERABL ES [address], [facility] [address] [place] [address] * (ABNORMAL) Differential (04/22/2023 12:28 PM CDT) Only the most recent of44 resultswithin the time period is included. Neutrophil % 86.1(H) 42.0 - 66.0 % [place] Comment:All components of th e Differential performed at [facility], [address] [place] [address] Lymphocyte % 10.9(L) 24.0 - 44.0 % [place] Comment:As part of the Diffe rential testing performed at [facility], [address] [place] [address] Monocyte % 2.3 2.0 - 7.0 % [place] Comment:As part of the Diffe rential testing performed at [facility], [address] [place] [address] Eosinophil % 0.2(L) 1.0 - 4.0 % [place] Comment:As part of the Diffe rential testing performed at [facility], [address] [place] [address] Basophil % 0.2 0.0 - 1.0 % [place] Comment:As part of the Diffe rential testing performed at [facility], [address] [place] [address] IGRE % 0.3 0.0 - 0.4 % [place] Comment: IGRE % count includes Metamyelocytes, Myelocytes, and Promyelocytes. As part of the Differential testing performed at [facility], [address] [place], [place] [id number] Neutrophil Abs 5.62 1.70 - 7.30 K/uL [place] Comment:As part of the Diffe rential testing performed at [facility], [address] [place] [address] Lymphocyte Abs 0.71(L) 1.00 - 4.80 K/uL [place] Comment:As part of the Diffe rential testing performed at [facility], [address] [place] [address] Monocyte Abs 0.15 0.08 - 0.70 K/uL [place] Comment:As part of the Diffe rential testing performed at [facility], [address] [place] [address] Eosinophil Abs 0.01(L) 0.04 - 0.40 K/uL [place] Comment:As part of the Diffe rential testing performed at [facility], [address] [place] [address] Basophil Abs 0.01 0.00 - 0.10 K/uL [place] Comment:As part of the Diffe rential testing performed at [facility], [address] [place] [address] IG Abs 0.02 0.00 - 0.04 K/uL [place] Comment:As part of the Diffe rential testing performed at [facility], [address] [place], [place] [id number] Blood 04/22/2023 12:2 8 PM CDT 04/22/2023 12:29 PM CDT [facility] - 04/22/2023 12:33 PM CDT Coordinate all on same day. Ok to schedule 1-2 weeks following 04/14 to coordinate appts Winter Luu MD LAB BLOOD ORDERABL ES Performing Organization Address City/[facility]/ZIP Co de Phone Number [address], [facility] [address] [place] [address] * BUN (04/22/2023 12:28 PM CDT) Only the most recent of44 resultswithin the time period is included. BUN 12 6 - 23 mg/dL [place] Comment:Testing performed at [facility], [address] [place] [address] Blood 04/22/2023 12:2 8 PM CDT 04/22/2023 12:29 PM CDT [facility] - 04/22/2023 1:04 PM CDT Coordinate all on same day. Ok to schedule 1-2 weeks following 04/14 to coordinate appts Winter Luu MD LAB BLOOD ORDERABL ES Performing Organization Address City/[facility] Co de Phone Number [place] [phone] [place] [address] * (ABNORMAL) Electrolyte Panel (04/22/2023 12:28 PM CDT) Only the most recent of45 resultswithin the time period is included. Sodium Lvl 135(L) 136 - 145 mEq/L [place] Comment:Testing performed at [facility], [address] [place] [address] Potassium Lvl 4.7 3.5 - 5.1 mEq/L [place] Comment:Testing performed at [facility], [address] [place] [address] Chloride 96(L) 98 - 107 mEq/L [place] Comment:Testing performed at [facility], [facility] [facility], [place] [address] CO2 21(L) 22 - 29 mEq/L [place] Comment:Testing performed at [facility], [address] [place] [address], [place] [address] Anion Gap 18(H) 4 - 14 mEq/L [place] Comment:Testing performed at [facility], [address] [place] [address], [place] [address] Blood 04/22/2023 12:2 8 PM CDT 04/22/2023 12:29 PM CDT [facility] - 04/22/2023 1:04 PM CDT Coordinate all on same day. Ok to schedule 1-2 weeks following 04/14 to coordinate appts Winter Luu MD LAB BLOOD ORDERABL ES [place] [address], [facility] [address] [place] [address] * Fractionated Bilirubin (03/11/2023 11:15 AM CDT) Only the most recent of24 resultswithin the time period is included. Bili Total <0.3 <=1.2 mg/dL [place] Comment: Direct and indirect bilirubin will not be reported when Total bilirubin result is <0.3 mg/dL Indocyanine Green (ICG) may cause falsely elevated bilirubin results. Total and direct bilirubin must not be measured from samples containing indocyanine green. False elevation of total bilirubin can be seen in patients with IgG concentrations above 28 g/L. Testing performed at [facility], [address] [place] [address], [place] [address] Blood 03/11/2023 11:1 5 AM CDT 03/11/2023 11:16 AM CDT [facility] - 03/11/2023 11:40 AM CDT Follow up at 1120, lab prior and infusion after Lorena Kayla Hdez [employer] LAB BLOOD ORDER GOD[place] [address], [address] [address] * (ABNORMAL) ALT (03/11/2023 11:15 AM CDT) Only the most recent of24 resultswithin the time period is included. ALT 40(H) <=33 U/L [place] Comment:Testing performed at [facility], [address] [place] [address] Blood 03/11/2023 11:1 5 AM CDT 03/11/2023 11:16 AM CDT [facility] - 03/11/2023 11:40 AM CDT Follow up at 1120, lab prior and infusion after Lorena Hdez [employer]ICATION[employer] IN[employer] LAB BLOOD ORDER GODWIN Performing Organization Address City/[facility]/ZIP Co de Phone Number [address] [address] * Aspartate Aminotransferase (03/11/2023 11:15 AM CDT) Only the most recent of24 resultswithin the time period is included. AST 26 <=32 U/L [place] Comment:Testing performed at [facility], [address] [place] [address] Blood 03/11/2023 11:1 5 AM CDT 03/11/2023 11:16 AM CDT Narrative [place] - 03/11/2023 11:40 AM CDT Follow up at 1120, lab prior and infusion after Lorena Hdez [employer] LAB BLOOD ORDER GODWIN [address], [address] [address] * Total Protein (03/11/2023 11:15 AM CDT) Only the most recent of24 resultswithin the time period is included. [facility] Total Protein 7.0 6.4 - 8.3 g/dL [place] Comment:Testing performed at [facility], [address] [place] [address] Blood 03/11/2023 11:1 5 AM CDT 03/11/2023 11:16 AM CDT [facility] - 03/11/2023 11:40 AM CDT Follow up at 1120, lab prior and infusion after Lorena Hdez [employer] IN[employer] LAB BLOOD ORDER GODWIN [address] [address] * (ABNORMAL) Alkaline Phosphatase (03/11/2023 11:15 AM CDT) Only the most recent of24 resultswithin the time period is included. [facility] Alk Phos 107(H) 35 - 104 U/L [place] Comment:Testing performed at [facility], [address] [place] [address] Blood 03/11/2023 11:1 5 AM CDT 03/11/2023 11:16 AM CDT [facility] - 03/11/2023 11:40 AM CDT Follow up at 1120, lab prior and infusion after Lorena Hdez BUSINESS COMMUNICATIONS INSTRUCTOR LAB BLOOD ORDER GODWIN [address] [address] * (ABNORMAL) Magnesium Level (03/11/2023 11:15 AM CDT) Only the most recent of42 resultswithin the time period is included. [facility] Magnesium 1.4(L) 1.6 - 2.6 mg/dL [place] Comment:Testing performed at [facility], [address] [place] [id number] Blood 03/11/2023 11:1 5 AM CDT 03/11/2023 11:16 AM CDT Narrative [place] - 03/11/2023 11:40 AM CDT Follow up at 1120, lab prior and infusion after Lorena Hdez BUSINESS COMMUNICATIONS INSTRUCTOR LAB BLOOD ORDER GODWIN Performing Organization Address City/[facility]/ZIP Co de Phone Number [place] [phone] [place] [address] * (ABNORMAL) Glucose Level (03/11/2023 11:15 AM CDT) Only the most recent of43 resultswithin the time period is included. Glucose Level 324(H) 70 - 99 mg/dL [place] Comment: Effective 05/27/16, the glucose reference intervals have been updated based on [place] [employer] guidelines (Standards of Medical Care in Diabetes 2016. Diabetes Care 2016; 39: S13-S22). Fasting blood glucose: Normal: 70-99 mg/dL Impaired fasting glucose (increased risk for diabetes or pre-diabetes): 100- 125 mg/dL Diabetes mellitus: >/=126 mg/dL Random blood glucose: Normal: 70-199 mg/dL Note: Random glucose >100 mg/dL is associated with increased risk for diabetes Testing performed at [facility], [address] [place] [phone] Blood 03/11/2023 11:1 5 AM CDT 03/11/2023 11:16 AM CDT Narrative [place] - 03/11/2023 11:40 AM CDT Follow up at 1120, lab prior and infusion after Lorena Hdez APRN LAB BLOOD ORDER [place] [phone] [place] [address] * Calcium Level (03/11/2023 11:15 AM CDT) Only the most recent of43 resultswithin the time period is included. [facility] Calcium Lvl 9.3 8.4 - 10.2 mg/dL [place] Comment:Testing performed at [facility], [address] [place] [id number] Blood 03/11/2023 11:1 5 AM CDT 03/11/2023 11:16 AM CDT [facility] - 03/11/2023 11:40 AM CDT Follow up at 1120, lab prior and infusion after Lorena Hdez APRN LAB BLOOD ORDER [facility] [address], [address] [address] * Albumin Level (03/11/2023 11:15 AM CDT) Only the most recent of24 resultswithin the time period is included. [facility] Albumin Lvl 3.9 3.5 - 5.2 gm/dL [place] Comment:Testing performed at [facility], [address] [place] [phone] Blood 03/11/2023 11:1 5 AM CDT 03/11/2023 11:16 AM CDT [facility] - 03/11/2023 11:40 AM CDT Follow up at 1120, lab prior and infusion after Lorena Hdez APRN LAB BLOOD ORDER [facility] [address] [address] * (ABNORMAL) POC Glucose Screen (02/16/2023 12:02 PM CDT) Only the most recent of154 resultswithin the time period is included. [facility] POC Glucose 211(H) 70 - 99 mg/dL [facility] Comment: Capillary blood samples, e.g. obtained by fingerstick, may have inaccurate results in patients with decreased peripheral blood flow. All POC Glucose screen test results, including critical values, must be interpreted and evaluated in the context of the patients clinical findings. It is recommended to confirm any questionable test results by core lab methodology. Method description: All results are measured using Electrochemistry test methodology. The glucose in the sample mixes with the reagents on the test strip. The reaction produces an electric current. The amount of current produced is proportional to the glucose concentration in the blood. PO Sample Type Capillary POC [facility] Performing Lab [facility] POC [facility] Comment:[facility], [address] [place] [address]; [employer] Sifter [employer] Miller: Chula Jacob MD; Waived Point of Care Testing - Gabrielle Mueller MD Blood 02/16/2023 12:0 2 PM CDT 02/16/2023 12:02 PM CDT Ashleigh Rangel MD POCT LUIS ENRIQUE [place] - DEVICE POC [facility] Unless otherwise noted, all lab tests performed by: Division of Pathology and Laboratory Medicine [address] [place] [address] * (ABNORMAL) Anti-Xa Level (02/16/2023 11:13 AM CDT) Anti-Xa Level 1.45(H) 0.00 - 0.10 unit/mL [facility] Comment: Anti-Xa Level (Heparin assay for Low Molecular Weight Heparin) Monitoring Guidelines: Blood samples should be obtained 4 hours post SC injection (time of peak level) Therapeutic peak levels: 0.6 - 1 units/mL ( 1 mg/kg q 12hr and estimated CrCl>=30 mL/min) 0.6 - 1 units/mL ( 1 mg/kg q 24hr and estimated CrCl <30 mL/min) 1 - 2 units/mL (1.5 mg/kg q 24hr and estimated CrCl>=30 mL/min) Ref: Chest 2008; 133;[id number] Hep Type Enoxaparin [facility] Blood 02/16/2023 11:1 3 AM CDT 02/16/2023 11:21 AM CDT Narrative [facility] - 02/16/2023 1:11 PM CDT Nurse please coordinate with lab to drawn Anti-Xa level (low molecular weight heparin level) 4 hours after 02/16/23 morning enoxaparin dose is given. Angeli Wang MD LAB BLOOD ORD ERABLES Performing Organization Address City/[facility]/ZIP Co de Phone Number [facility] Unless otherwise noted, all lab tests performed by: Division of Pathology and Laboratory Medicine [address] [place] [phone] * Phosphorus Level (02/16/2023 6:15 AM CDT) Only the most recent of40 resultswithin the time period is included. Phosphorus 4.3 2.5 - 4.5 mg/dL [facility] Blood 02/16/2023 6:15 AM CDT 02/16/2023 6:59 AM CDT DEEPTI Harrell APRN LAB BL OOD ORDERABLES Performing Organization Address City/[facility]/ZIP Co de Phone Number [facility] Unless otherwise noted, all lab tests performed by: Division of Pathology and Laboratory Medicine [address] [place] [phone] * General Laboratory Add-On Test (02/12/2023 9:33 AM CDT) Only the most recent of4 resultswithin the time period is included. Ordered Test Added [facility] Test Needed procalcitonin [facility] Existing 02/12/2023 9:33 AM CDT 02/12/2023 9:34 AM CDT Kimberli GALE LAB BLOOD ORDERABLES [facility] Unless otherwise noted, all lab tests performed by: Division of Pathology and Laboratory Medicine [address] [place] [phone] * (ABNORMAL) Procalcitonin (02/12/2023 5:34 AM CDT) Only the most recent of4 resultswithin the time period is included. Procalcitonin 0.38(H) <=0.08 ng/mL [facility] Comment: Procalcitonin > 2.00 ng/mL: Procalcitonin levels above 2.00 ng/mL are highly suggestive of a high risk for systematic bacterial infection/ severe sepsis and/or septic shock. Procalcitonin < 0.50 ng/mL: Procalcitonin levels below 0.50 ng/mL are at low risk for progression to severe sepsis and/ or septic shock. Procalcitonin (ProCT) between 0.15 and 2.0 ng/mL do not exclude infection, because localized infections (without systemic signs) may be associated with such low levels. Results greater than 400 ng/mL may not be reliable due to the matrix effect with extended dilution as it exceeds the cilnical scientist's recommended limit. Caution should be exercised when interpreting such values and done in conjunction with clinical context. Blood 02/12/2023 5:34 AM CDT 02/12/2023 6:18 AM CDT DEEPTI Harrell APRN LAB BL OOD ORDERABLES [facility] Unless otherwise noted, all lab tests performed by: Division of Pathology and Laboratory Medicine [address] [place] [phone] * CT Maxillofacial Area with Contrast (02/11/2023 4:15 AM CDT) Anatomical Region Laterality Modality Head Computed Tomogra phy 02/11/2023 6:31 AM CDT Impressions 02/11/2023 10:31 AM CDT No findings to suggest acute sinusitis. 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 Visualization is difficult with CT, repeat MRI of the skull base could be considered as clinically indicated. I personally reviewed these image(s) along with the resident's/fellow's interpretations, certify that if a procedure was performed I was physically present, and agree with the final report. 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 Findings: Mucosal retention cysts are visualized in bilateral maxillary sinuses. The paranasal sinuses are otherwise unremarkable. Left nasopharyngeal carcinoma, consistent with biopsy-proven adenoid cystic carcinoma is better visualized on MRI skull base 11/30/2022. This lesion is hard to visualize on CT. The soft tissues are unremarkable. The visualized intracranial structures are without gross abnormality. 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 Findings: Mucosal retention cysts are visualized in bilateral maxillary sinuses. Theparanasal sinuses are otherwise unremarkable. Left nasopharyngeal carcinoma, consistent with biopsy-proven adenoidcystic carcinoma is better visualized on MRI skull base 11/30/2022. Thislesion is hard to visualize on CT. The soft tissues are unremarkable. The visualized intracranial structures are without gross abnormality. IMPRESSION: No findings to suggest acute sinusitis. The known left-sided nasopharyngeal adenoid cystic carcinoma was welldemonstrated on the previous MR of 11/30/2022, please refer to thatimaging study. Visualization is difficult with CT, repeat MRI of the skullbase could be considered as clinically indicated. I personally reviewed these image(s) along with the resident's/fellow'sinterpretations, certify that if a procedure was performed I wasphysically present, and agree with the final report. Angeli Wang MD IMG CT ORDERA BLES * Creatine Kinase (02/09/2023 5:37 AM CDT) Only the most recent of2 resultswithin the time period is included. CK 125 26 - 192 U/L [facility] Blood 02/09/2023 5:37 AM CDT 02/09/2023 6:08 AM CDT Shelby GALE LAB BLOOD ORDERABLES [facility] Unless otherwise noted, all lab tests performed by: Division of Pathology and Laboratory Medicine [address] [place] [phone] * US Arm Venous Doppler Bilateral (02/08/2023 6:28 PM CDT) Anatomical Region Laterality Modality Arm, Extremity Ultrasound 02/08/2023 6:36 PM CDT Impressions 02/08/2023 7:43 [...] [place]. I personally reviewed these image(s) along with the resident's/fellow's interpretations, certify that if a procedure was performed I was physically present, and agree with the final report. 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 Technique: Grayscale and color/spectral Doppler ultrasound of the bilateral upper extremity veins was performed. Findings: Left: Noncompressible occlusive thrombus is present in the left basilic vein (superficial venous thrombosis). Noncompressible occlusive thrombus is present in the left cephalic vein (superficial venous thrombosis). The left internal jugular, subclavian, axillary, and brachial veins show phasic color flow and are patent. Right: Noncompressible occlusive thrombus is present in the right axillary vein (deep venous thrombosis). Noncompressible occlusive thrombus is present in the right basilic vein (superficial venous thrombosis). The right internal jugular, subclavian, cephalic, and basilic veins show phasic color flow and are patent. 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 Technique: Grayscale and color/spectral Doppler ultrasound of thebilateral upper extremity veins was performed. Findings: Left: Noncompressible occlusive thrombus is present in the left basilic vein(superficial venous thrombosis). Noncompressible occlusive thrombus is present in the left cephalic vein(superficial venous thrombosis). The left internal jugular, subclavian, axillary, and brachial veins showphasic color flow and are patent. Right: Noncompressible occlusive thrombus is present in the right axillary vein(deep venous thrombosis). Noncompressible occlusive thrombus is present in the right basilic vein(superficial venous thrombosis). The right internal jugular, subclavian, cephalic, and basilic veins showphasic color flow and are patent. IMPRESSION: 1. Deep venous thrombosis involving the right axillary vein. 2. Superficial venous thrombosis of the left basilic vein. 3. Superficial venous thrombosis of the left cephalic vein. 4. Superficial venous thrombosis of the right basilic vein. Above finding of thrombosis was relayed via telephone at approximately6:40 PM on 02/08/[address] Howard to JANEEN De [place]. I personally reviewed these image(s) along with the resident's/fellow'sinterpretations, certify that if a procedure was performed I wasphysically present, and agree with the final report. Derrick Gill MD [facility] US ORDERABLES * Echocardiogram 2D Complete with Contrast (02/08/2023 2:23 PM CDT) 02/08/2023 1:46 PM CDT Narrative [facility] - 02/08/2023 5:17 PM CDT Echocardiographic Report Interpretation Summary A complete two-dimensional transthoracic echocardiogram was performed (2D, M- mode, Spectral and color Doppler). Micro-Bubbles injection performed because of poor endocardial resolution. There is no comparison study available. Left ventricular systolic function is normal .Using an ultrasound enhancing agent and the Biplane Method of Disks, the LVEF measures 62% The right ventricle is normal in size and function. There is no pericardial effusion. Right ventricular systolic pressure is normal. Left Ventricle: The left ventricle is grossly normal size. Increased LV mass is noted using the linear method. Left ventricular systolic function is normal. Using an ultrasound enhancing agent and the Biplane Method of Disks, the LVEF measures 62%. I WMSI = 1.00 % Normal = 100 Segments Size X - Cannot 2 - 1-2 small Interpret 1 - Normal Hypokinetic 3 - Akinetic 4 - Dyskinetic3- 5 moderate 5 - Aneurysmal 6-14 large 15-16 diffuse 3D imaginD volumes were not performed in this study. Cardiac Mechanics/Speckle Tracking Imaging: Speckle tracking imaging was not performed in this study. ([employer] Study). Diastology: Indeterminate. Right Ventricle: The right ventricle is normal in size and function. Atria: Left atrium not well seen for volumetric measures but appears grossly normal in size. Right atrium not well visualized. Mitral Valve: The mitral valve is grossly normal. There is no mitral valve stenosis. There is trace mitral regurgitation. Tricuspid Valve: The tricuspid valve is not well visualized, but is grossly normal. There is trace tricuspid regurgitation. Right ventricular systolic pressure is normal. Aortic Valve: The aortic valve opens well. No aortic regurgitation is present. Pulmonic Valve: The pulmonic valve is not well seen, but is grossly normal. Trace pulmonic valvular regurgitation. Great Vessels: The aortic root is normal size. The inferior vena cava demonstrates normal size and normal respiratory variation. Pericardium/Pleural: There is no pericardial effusion. An echo lucent space is noted consistent with prominent [...] A complete two-dimensional transthoracic echocardiogram was performed (2D,M- mode, Spectral and color Doppler). Micro-Bubbles injection performedbecause of poor endocardial resolution. There is no comparison studyavailable. Left ventricular systolic function is normal .Using an ultrasound enhancing agent and the Biplane Method of Disks, theLVEF measures 62% The right ventricle is normal in size and function. There is no pericardial effusion. Right ventricular systolic pressure is normal. Left Ventricle: The left ventricle is grossly normal size. Increased LV mass is notedusing the linear method. Left ventricular systolic function is normal.Using an ultrasound enhancing agent and the Biplane Method of Disks, theLVEF measures 62%. I WMSI = 1.00 % Normal = 100 Segments Size X - Cannot 2 - 1-2small Interpret 1 - Normal Hypokinetic 3 - Akinetic 4 - Dyskinetic3-5moderate 5 - Aneurysmal6-14 large 15-16 diffuse 3D imaginD volumes were not performed in this study. Cardiac Mechanics/Speckle Tracking Imaging: Speckle tracking imaging was not performed in this study. ([employer] Study). Diastology: Indeterminate. Right Ventricle: The right ventricle is normal in size and function. Atria: Left atrium not well seen for volumetric measures but appears grosslynormal in size. Right atrium not well visualized. Mitral Valve: The mitral valve is grossly normal. There is no mitral valve stenosis.There is trace mitral regurgitation. Tricuspid Valve: The tricuspid valve is not well visualized, but is grossly normal. Thereis trace tricuspid regurgitation. Right ventricular systolic pressure isnormal. Aortic Valve: The aortic valve opens well. No aortic regurgitation is present. Pulmonic Valve: The pulmonic valve is not well seen, but is grossly normal. Trace pulmonicvalvular regurgitation. Great Vessels: The aortic root is normal size. The inferior vena cava demonstrates normalsize and normal respiratory variation. Pericardium/Pleural: There is no pericardial effusion. An echo lucent space is noted consistentwith prominent pericardial fat pad. MMode/2D Measurements IVSd: 1.2 cmLVIDd: 4.9 cm LVIDs: 3.6 cm LVPWd: 1.3 cm FS: 26.4 %Ao root diam: 2.8 cm Ao root area: 6.0 cm2 LVOT diam: 1.9 cmEDV(MOD-A4C): 209.8 ml ESV(MOD-A4C): 85.0 ml LVOT area: 3.0 cm2EF(MOD-A4C): 59.5 % EDV(MOD-A2C): 155.4 ml ESV(MOD-A2C): 53.9 mlEDV(MOD-bp): 190.6 ml EF(MOD-A2C): 65.3 %ESV(MOD-bp): 71.5 ml EF(MOD-bp): 62.5 % LAV(MOD-A4C): 71.8 ml EDV (MOD-bp) Index: 81.9 ml/m2 ESV (MOD-bp) Index: 30.7 ml/m2RWT: 0.53 cm Doppler Measurements MV E max alejandra: 99.6 cm/secMV V2 max: 109.5 cm/sec MV A max alejandra: 86.1 cm/secMV max P.8 mmHg MV E/A: 1.2MV V2 mean: 73.3 cm/sec MV mean P.3 mmHg MV V2 VTI: 29.2 cm MVA(VTI): 2.1 cm2 MV P1/2t max alejandra: 100.0 cm/secAo V2 max: 183.4 cm/sec MV P1/2t: 69.5 msecAo max P.5 mmHg MVA(P1/2t): 3.2 cm2Ao V2 mean: 113.8 cm/sec Ao mean P.0 mmHg MV dec slope: 421.2 cm/sec2Ao V2 VTI: 32.7 cm NGOZI(I,D): 1.9 cm2 NGOZI(V,D): 1.7 cm2 LV V1 max P.6 mmHgMR max alejandra: 505.6 cm/sec LV V1 mean P.2 mmHg LV V1 max: 107.1 cm/sec LV V1 mean: 69.0 cm/sec LV V1 VTI: 20.6 cm SV(LVOT): 61.0 mlPA V2 max: 144.8 cm/sec PA max P.4 mmHg PA V2 mean: 99.2 cm/sec PA mean P.4 mmHg PA V2 VTI: 29.9 cm Med Peak E' Alejandra: 6.3 cm/secLat Peak E' Alejandra: 10.9 cm/sec TR max alejandra: 242.7 cm/secRAP systole: 3.0 mmHg TR max P.6 mmHg RVSP(TR): 26.6 mmHg NGOZI Index (I,D): 0.80AVA Index (V,D): 0.74 Dimensionless Index: 0.58E/e' (avg): 11.6 E/e' (lat): 9.2E/e' (sept): 15.7 Branden Soria MD CV ECHO ORDERABLES Performing Organization Address [facility] Co de Phone Number [facility] * HIV-1/2 Antigen and Antibodies, Fourth Generation (02/07/2023 6:52 AM CDT) HIV Ag/Ab, 4TH Gen NON-REACT ISHMAEL NON-REACT ISHMAEL [facility] Comment: HIV-1 antigen and HIV-1/HIV-2 antibodies were not detected. There is no laboratory evidence of HIV infection. PLEASE NOTE: This information has been disclosed to you from records whose confidentiality may be protected by state law. If your state requires such protection, then the state law prohibits you from making any further disclosure of the information without the specific written consent of the person to whom it pertains, or as otherwise permitted by law. A general authorization for the release of medical or other information is NOT sufficient for this purpose. For additional information please refer to http://education.[employer].Camp[employer]/faq/QBW018 (This link is being provided for informational/ educational purposes only.) The performance of this assay has not been clinically validated in patients less than 2 years old. Lab test performed by: Lab Mnemonic: [employer] Giving Assistant [address] [phone] JOSE ELIAS MELÉNDEZ MD Blood 02/07/2023 6:52 AM CDT 02/07/2023 7:22 AM CDT Branden Soria MD LAB BLOOD ORDERABLES Performing Organization Address [facility] de Phone Number [facility] * Hepatitis C Virus Ab (02/07/2023 6:52 AM CDT) Only the most recent of2 resultswithin the time period is included. HCVAb. Non Reactive Non Reactive [facility] Comment: Antibody detection in the immunocompromised and immunosuppressed population may be delayed or absent entirely. Therefore serial testing, correlation with other clinical findings, and supplemental testing (if available) should be taken into consideration when interpreting the results. Blood 02/07/2023 6:52 AM CDT 02/07/2023 8:32 AM CDT Branden Soria MD LAB BLOOD ORDERABLES Performing Organization Address [facility] de Phone Number [facility] Unless otherwise noted, all lab tests performed by: Division of Pathology and Laboratory Medicine [address] [place] [phone] * Hepatitis B Total Ig Core Ab (SCREENING) (anti-HBc total Ig; HBcAb total Ig) (02/07/2023 6:52 AM CDT) Pathologist [facility] [place] HBcAb. Non Reactive Non Reactive [facility] Blood 02/07/2023 6:52 AM CDT 02/07/2023 8:32 AM CDT Branden Soria MD LAB BLOOD ORDERABLES Performing Organization Address [facility] de Phone Number [facility] Unless otherwise noted, all lab tests performed by: Division of Pathology and Laboratory Medicine [address] [place] [phone] * Hepatitis B Surface Ag (02/07/2023 6:52 AM CDT) HBsAg. Non Reactive Non Reactive [facility] Blood 02/07/2023 6:52 AM CDT 02/07/2023 8:32 AM CDT Branden Soria MD LAB BLOOD ORDERABLES Performing Organization Address [facility] de Phone Number [facility] Unless otherwise noted, all lab tests performed by: Division of Pathology and Laboratory Medicine [address] [place] [phone] * Blood Culture (02/07/2023 6:52 AM CDT) Only the most recent of6 resultswithin the time period is included. Final Report No growth [facility] Blood (Venipuncture-Ri ght) 02/07/2023 6:52 AM CDT 02/07/2023 7:43 AM CDT Comment:arm iTm Nguyen MD MICROBIOLOGY - GENER AL ORDERABLES Performing Organization Address City/[facility] Co de Phone Number [facility] Unless otherwise noted, all lab tests performed by: Division of Pathology and Laboratory Medicine [address] [place] [id number] * Transferrin with TIBC (02/07/2023 6:52 AM CDT) Transferrin 205 200 - 360 mg/dL [facility] TIBC 287 250 - 450 mcg/dL [facility] Blood 02/07/2023 6:52 AM CDT 02/07/2023 7:07 AM CDT Branden Soria MD LAB BLOOD ORDERABLES Performing Organization Address [facility] Co de Phone Number [facility] Unless otherwise noted, all lab tests performed by: Division of Pathology and Laboratory Medicine [address] [place] [phone] * Iron Level (02/07/2023 6:52 AM CDT) Iron 51 37 - 145 mcg/dL [facility] Blood 02/07/2023 6:52 AM CDT 02/07/2023 7:07 AM CDT Branden Soria MD LAB BLOOD ORDERABLES Performing Organization Address City/[facility]/ZIP Co de Phone Number [facility] Unless otherwise noted, all lab tests performed by: Division of Pathology and Laboratory Medicine [address] [place] [address] [id number] * (ABNORMAL) Hemoglobin A1c (02/07/2023 6:52 AM CDT) Only the most recent of2 resultswithin the time period is included. A1C 10.2(H) 4.3 - 5.6 % [facility] Comment: HbA1c values >=6.5% are diagnostic of diabetes mellitus. Diagnosis should be confirmed by repeat testing. Therapeutic Action suggested: >8.0% HbA1c; Goal of therapy: <7.0% HbA1c Blood 02/07/2023 6:52 AM CDT 02/07/2023 7:09 AM CDT Branden Soria MD LAB BLOOD ORDERABLES [facility] Unless otherwise noted, all lab tests performed by: Division of Pathology and Laboratory Medicine [address] [place] [address] [phone] * (ABNORMAL) Ferritin Level (02/07/2023 6:52 AM CDT) Ferritin Lvl 320(H) 13 - 150 ng/mL [facility] Blood 02/07/2023 6:52 AM CDT 02/07/2023 7:07 AM CDT Branden Soria MD LAB BLOOD ORDERABLES [facility] Unless otherwise noted, all lab tests performed by: Division of Pathology and Laboratory Medicine [address] [place] [address] [phone] * (ABNORMAL) Lipid Panel (02/07/2023 6:52 AM CDT) Chol 137 <=199 mg/dL [facility] Comment: ATP III Classification of Total Cholesterol Primary Target of Therapy (in mg/dL): <200 Desirable 200-239 Borderline high >=240 High Trig 184(H) <=149 mg/dL [facility] Comment: ATP III Classification of Serum Triglycerides Primary Target of Therapy (in mg/dL): <150 Normal 150-199 Borderline high 200-499 High >=500 Very high Non-fasting triglycerides >200 mg/dL may be followed up with a fasting Lipid Panel. Calculated LDL-C may be falsely decreased when non-fasting triglycerides >200 mg/dL. HDL 27(L) >=40 mg/dL [facility] LDL 73 <=100 mg/dL [facility] Comment: ATP III Classification of LDL Cholesterol Primary Target of Therapy (in mg/dL): <100 Optimal 100-129 Near optimal/above optimal 130-159 Borderline high 160-189 High >=190 Very high VLDL 37 mg/dL [facility] Blood 02/07/2023 6:52 AM CDT 02/07/2023 7:07 AM CDT Branden Soria MD LAB BLOOD ORDERABLES [facility] Unless otherwise noted, all lab tests performed by: Division of Pathology and Laboratory Medicine [address] [place] [phone] * Clostridium Difficile DNA Path Review (02/07/2023 5:18 AM CDT) C diff DNA MT Reviewed and Electronically signed by Pathologist: PATRICIA CHAVEZ MD #[id number] [facility] Comment: C. difficile Toxin DNA (Primary Method) is a nucleic acid amplification test (NAAT) intended for the qualitative detection of bacterial DNA from toxigenic strains of Clostridium difficile. Reference Range: DNA Negative Clostridium Difficile Toxin Assay (Reflex Method) performed by rapid immunoassay for the detection of Clostridium difficile toxins A and B in stool specimens. Reference Range: Negative When invalid results are obtained by either the primary or reflex method, a new specimen should be collected for repeat testing. MD Suzie BARRON [id number] Dictated by: MD Suzie BARRON [id number] Dictated Date/Time: 02.07.2023 16:35 PM CDT Transcribed Date/Time: 02.07.2023 16:35 PM CDT Electronically Signed By: PATRICIA CHAVEZ MD - [id number] on 02.07.2023 16:35 PM Stool 02/07/2023 5:18 AM CDT 02/07/2023 8:07 AM CDT Branden Soria MD MICROBIOLOGY - GENER AL ORDERABLES Performing Organization Address [facility] de Phone Number [facility] Unless otherwise noted, all lab tests performed by: Division of Pathology and Laboratory Medicine [address] [place] [phone] * Clostridium Difficile DNA Assay (02/07/2023 5:18 AM CDT) [facility] C difficile DNA Negative Negative [facility] C difficle Toxin EIA Test Not Performed Negative [facility] C difficile Interpretation C. difficile DNA detection was negative making C. difficile infection highly unlikely in this patient. EIA not performed. [facility] Stool 02/07/2023 5:18 AM CDT 02/07/2023 6:14 AM CDT Branden Soria MD MICROBIOLOGY - GENER AL ORDERABLES Performing Organization Address [facility] de Phone Number [facility] Unless otherwise noted, all lab tests performed by: Division of Pathology and Laboratory Medicine [address] [place] [address] [phone] * Gastrointestinal Multiplex Panel (02/07/2023 5:16 AM CDT) [facility] Campylobacter Not Detected Not Detected [facility] C difficile DNA (GI Multi Panel) Refer to separate C. difficile DNA Assay for results [facility] Plesiomonas shigelloides Not Detected Not Detected [facility] Salmonella Not Detected Not Detected [facility] Vibrio Not Detected Not Detected [facility] Vibrio cholerae Not Detected Not Detected [facility] Yersinia enterocolitica Not Detected Not Detected [facility] Enteroaggregative E. coli (EAEC) Not Detected Not Detected [facility] Enteropathogenic E. coli (EPEC) Not Detected Not Detected [facility] Enterotoxigenic E. coli (ETEC) Not Detected Not Detected [facility] Shiga-like toxin-producing E. col (STEC) Not Detected Not Detected [facility] E. coli O157 Not Applicable Not Detected [facility] Shigella/Enteroinvas ishmael E. coli (EIEC) Not Detected Not Detected [facility] Cryptosporidium Not Detected Not Detected [facility] Cyclospora cayetanensis Not Detected Not Detected [facility] Entamoeba histolytica Not Detected Not Detected [facility] Giardia lamblia Not Detected Not Detected [facility] Adenovirus F 40/41 Not Detected Not Detected [facility] Astrovirus Not Detected Not Detected [facility] Norovirus GI/GII Not Detected Not Detected [facility] Rotavirus A Not Detected Not Detected [facility] Sapovirus (I, II, IV and V) Not Detected Not Detected [facility] Stool 02/07/2023 5:16 AM CDT 02/07/2023 6:13 AM CDT Branden Soria MD MICROBIOLOGY - GENER AL ORDERABLES [facility] Unless otherwise noted, all lab tests performed by: Division of Pathology and Laboratory Medicine [address] [place] [address] [phone] * Gastrointestinal Multiplex Panel Path Review (02/07/2023 5:16 AM CDT) GIMP MT Reviewed and Electronically signed by Pathologist: PATRICIA CHAVEZ MD #[id number] [facility] Comment: Performed by real-time PCR methodology. This assay detects the presence of nucleic acid (DNA or RNA) for the pathogens reported. A result of "Not Detected" does not exclude the possibility of the presence of one or more of the pathogens at less than the detection limits of this assay. The results of the GI Panel should be considered presumptive. Clinical correlation is recommended. MD Suzie BARRON [id number] Dictated by: MD Suzie BARRON [id number] Dictated Date/Time: 02.07.2023 16:40 PM CDT Transcribed Date/Time: 02.07.2023 16:40 PM CDT Electronically Signed By: MD Suzie BARRON [id number] on 02.07.2023 16:40 PM Stool 02/07/2023 5:16 AM CDT 02/07/2023 6:13 AM CDT Branden Soria MD LAB BLOOD ORDERABLES Performing Organization Address City/[facility]/ZIP Co de Phone Number [facility] Unless otherwise noted, all lab tests performed by: Division of Pathology and Laboratory Medicine [address] [place] [address] * EKG, 12-Lead (Portable) (02/07/2023) Only the most recent of2 resultswithin the time period is included. Romana Guy MD ECG ORDERABLES Performing Organization Address [facility]/ZIP Co de Phone Number [facility] * NT-Pro BNP (In-House) (02/06/2023 3:05 AM CDT) Only the most recent of2 resultswithin the time period is included. Pathologist [facility] [place] NT ProBNP 83 <=125 pg/mL [facility] Blood 02/06/2023 3:05 AM CDT 02/06/2023 3:20 AM CDT Cathie Meneses BUSINESS COMMUNICATIONS INSTRUCTOR,AGACNP LAB BLOOD OR DERABLES Performing Organization Address City/[facility]/ZIP Co de Phone Number [facility] Unless otherwise noted, all lab tests performed by: Division of Pathology and Laboratory Medicine [address] [place] [address] [phone] * CRP (02/06/2023 3:05 AM CDT) Only the most recent of3 resultswithin the time period is included. Pathologist [facility] [place] CRP 65.62 mg/L [facility] Comment: Reference ranges for HS CRP assay are as follows: Reference ranges when used to assess cardiac risk: <1.00 mg/L Low cardiovascular risk 1.00-3.00 mg/L Average cardiovascular risk >3.00 mg/L High cardiovascular risk. Reference ranges when used to assess inflammatory responses: Less than or equal to 10.00 mg/L. Blood 02/06/2023 3:05 AM CDT 02/06/2023 3:20 AM CDT Cathie Meneses BUSINESS COMMUNICATIONS INSTRUCTOR,AGAJHONYP LAB BLOOD OR DERABLES Performing Organization Address City/[facility]/ZIP Co de Phone Number [facility] Unless otherwise noted, all lab tests performed by: Division of Pathology and Laboratory Medicine [address] [place] [address] [phone] * Troponin T (In-House) (02/06/2023 1:09 AM CDT) Only the most recent of2 resultswithin the time period is included. Troponin T 10 <=19 ng/L [facility] Comment: < 19 ng/L Suggest retest at 3 to 6 hours later to rule out myocardial infarction >= 19 to <=52 ng/L Possible myocardial injury. Suggest retest at 3 hours. - a change of < 20 ng/L, retest at 6 hours - a change of >= 20 ng/L, suggestive of myocardial infarction > 52 ng/L Suggestive of myocardial infarction Critical value will be reported when cTnT is > 52 ng/L and only reported for the first in a series. Hemolyzed specimens with Hemolysis Index >100 (100 mg/dl or moderate hemolysis) may cause interferences and falsely low results. Blood 02/06/2023 1:09 AM CDT 02/06/2023 1:26 AM CDT Romana Guy MD LAB BLOOD ORDERABLES Performing Organization Address [facility]/State/ZIP Co de Phone Number [facility] Unless otherwise noted, all lab tests performed by: Division of Pathology and Laboratory Medicine [address] [place] [address] [phone] * (ABNORMAL) Urine Culture (02/06/2023 12:40 AM CDT) Only the most recent of3 resultswithin the time period is included. Final Report 10 - 50,000 cfu/ml Normal site isabel present. Generally of low significance. Correlate with clinical data and culture history. (A) [facility] Urine 02/06/2023 12:4 0 AM CDT 02/06/2023 2:54 AM CDT Irina Houston APRN MICROBIOLOGY - GENE RAL ORDERABLES [facility] Unless otherwise noted, all lab tests performed by: Division of Pathology and Laboratory Medicine [address] [place] [address] [phone] * aPTT (02/05/2023 8:26 PM CDT) Only the most recent of5 resultswithin the time period is included. Pathologist [facility] [place] aPTT 28.5 22.8 - 34.2 second(s) [facility] Blood 02/05/2023 8:26 PM CDT 02/05/2023 8:29 PM CDT Deneen Guevara MD LAB BLOOD ORDERABLES Performing Organization Address [facility] Co de Phone Number [facility] Unless otherwise noted, all lab tests performed by: Division of Pathology and Laboratory Medicine [address] [place] [address] [phone] * VB Lactate (02/05/2023 8:26 PM CDT) Only the most recent of4 resultswithin the time period is included. V Lactate 1.2 0.5 - 1.6 mmol/L [facility] Blood 02/05/2023 8:26 PM CDT 02/05/2023 8:29 PM CDT Deneen Guevara MD LAB BLOOD ORDERABLES Performing Organization Address City/[facility]/ZIP Co de Phone Number [facility] Unless otherwise noted, all lab tests performed by: Division of Pathology and Laboratory Medicine [address] [place] [address] [phone] * (ABNORMAL) Prothrombin Time with INR (02/05/2023 8:26 PM CDT) Only the most recent of5 resultswithin the time period is included. PT 14.7(H) 11.9 - 14.1 second(s) [facility] INR 1.16(H) 0.89 - 1.10 [facility] Blood 02/05/2023 8:26 PM CDT 02/05/2023 8:29 PM CDT Deneen Guevara MD LAB BLOOD ORDERABLES Performing Organization Address City/[facility]/ZIP Co de Phone Number [facility] Unless otherwise noted, all lab tests performed by: Division of Pathology and Laboratory Medicine [address] [place] [address] [phone] * (ABNORMAL) D Dimer (02/05/2023 8:26 PM CDT) Pathologist [facility] [place] D-Dimer 3.04(H) 0.10 - 0.50 mcg/ml FEU [facility] Comment: The cut off value for exclusion of venous thromboembolism is <0.51 mcg/mL FEUs (fibrinogen equivalent units). Blood 02/05/2023 8:26 PM CDT 02/05/2023 8:29 PM CDT Deneen Guevara MD LAB BLOOD ORDERABLES [facility] Unless otherwise noted, all lab tests performed by: Division of Pathology and Laboratory Medicine [address] [place] [address] [phone] * X-ray Abdomen AP (02/05/2023 6:59 PM CDT) Anatomical Region Laterality Modality Abdomen Digital Radiogra phy 02/05/2023 7:17 PM CDT Impressions 02/05/2023 7:18 PM CDT No radiographic evidence of obstruction or ileus. 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 Findings: Nonspecific bowel gas pattern. No gross free intraperitoneal air. Moderate amount of stool throughout the colon. No gross acute skeletal abnormality. 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 Findings: Nonspecific bowel gas pattern. No gross free intraperitoneal air. Moderateamount of stool throughout the colon. No gross acute skeletal abnormality.Cholecystectomy clips noted IMPRESSION: No radiographic evidence of obstruction or ileus. Amanda Proctor MD IMG DIAGNOSTIC IMAGI NG ORDERABLES * X-ray Chest 1 View (02/05/2023 6:57 PM CDT) Anatomical Region Laterality Modality Chest Digital Radiogra phy 02/05/2023 8:48 PM CDT Impressions 02/05/2023 8:51 PM CDT Intact chest with no acute lobar consolidations or lobar pneumonias.. Narrative 02/05/2023 8:51 PM CDT FULL RESULT: Examination: XR CHEST 1 VW, 02/05/2023 6:57 PM Clinical History: Adeno cystic carcinoma naso pharynx Indication: Chest pain, Suspected COVID-19, Results Pending, 1 Comparison: Chest Radiography 01/29/2023 Technique: Anteroposterior radiograph of the chest. Findings: The lungs are clear with linear parenchymal opacities left lower lobe and lateral CP angle consistent with old post inflammatory scarring. There is no pleural effusion or pneumothorax. There is no mediastinal or hilar adenopathy. Cardiac silhouette is normal. Procedure Note Champ Mckinney MD - 02/05/2023 FULL RESULT: Examination: XR CHEST 1 VW, 02/05/2023 6:57 PM Clinical History: Adeno cystic carcinoma naso pharynx Indication: Chest pain, Suspected COVID-19, Results Pending, 1 Comparison: Chest Radiography 01/29/2023 Technique: Anteroposterior radiograph of the chest. Findings: The lungs are clear with linear parenchymal opacities left lower lobe andlateral CP angle consistent with old post inflammatory scarring. There isno pleural effusion or pneumothorax. There is no mediastinal or hilaradenopathy. Cardiac silhouette is normal. IMPRESSION: Intact chest with no acute lobar consolidations or lobar pneumonias.. Amanda Proctor MD IMG DIAGNOSTIC IMAGI NG ORDERABLES * COVID-19 (SARS-CoV-2)Asymptomatic-LT (02/05/2023 5:09 PM CDT) Only the most recent of4 resultswithin the time period is included. COVID19 (SARS-CoV-2) Not Detected Not Detected [facility] COVID19 SARS Indication Inpatient Admission [facility] Covid 19 Comment See Note [facility] Comment: The ruby SARS-CoV-2 nucleic acid test for use on the ruby Chastity System is a real-time RT-PCR assay intended for the qualitative detection of SARS-CoV-2 (COVID-19) viral RNA in nasopharyngeal swabs from either individuals suspected of COVID-19 by their healthcare provider or from any individual, including individuals without symptoms or other reasons to suspect COVID-19. A fact sheet for patients provided by the cilnical scientist ([employer]) can be reviewed at: https://www.fda.gov/media/793802/download. A fact sheet for Health Care providers is provided by the cilnical scientist ([employer]) and can be reviewed at: https://www.fda.gov/media/136557/download Results must be interpreted within the context of all relevant clinical and laboratory findings and should not form the sole basis for a diagnosis or treatment decision. Positive results do not rule out bacterial infection or co-infection with other viruses. Negative results do not preclude SARS-CoV-2 infection and must be combined with clinical observations, patient history, and/or epidemiological information. This assay has been authorized by the FDA for use only under Emergency Use Authorization (EUA) in laboratories that have been CLIA-certified to perform moderate-complexity and high-complexity tests. The Microbiology Laboratory at [facility], CLIA Accreditation #[id number] and CAP Accreditation #[id number], verified the performance characteristics of this assay. Internal controls are used to monitor all stages of the test process. Nasopharyngeal Swab 02/06/20 5:09 PM CDT 02/05/2023 5:17 PM CDT Amanda Proctor MD MICROBIOLOGY - GENER AL ORDERABLES Performing Organization Address City/[facility]/ZIP Co de Phone Number [facility] Unless otherwise noted, all lab tests performed by: Division of Pathology and Laboratory Medicine [address] [place] [address] * Lipase (02/05/2023 3:30 PM CDT) Only the most recent of4 resultswithin the time period is included. Lipase Lvl 18 13 - 60 U/L [facility] Blood 02/05/2023 3:30 PM CDT 02/05/2023 3:39 PM CDT Amanda Proctor MD LAB BLOOD ORDERABLES Performing Organization Address [facility] Co de Phone Number [facility] Unless otherwise noted, all lab tests performed by: Division of Pathology and Laboratory Medicine [address] [place] [address] [phone] * CKMB (02/05/2023 3:30 PM CDT) CK MB <2.0 <=5.3 ng/mL [facility] Blood 02/05/2023 3:30 PM CDT 02/05/2023 3:39 PM CDT Amanda Proctor MD LAB BLOOD ORDERABLES Performing Organization Address City/[facility] Co de Phone Number [facility] Unless otherwise noted, all lab tests performed by: Division of Pathology and Laboratory Medicine [address] [place] [address] [phone] * Amylase Level (02/05/2023 3:30 PM CDT) Only the most recent of2 resultswithin the time period is included. Amylase Lvl 43 28 - 100 U/L [facility] Blood 02/05/2023 3:30 PM CDT 02/05/2023 3:39 PM CDT Amanda Proctor MD LAB BLOOD ORDERABLES [facility] Unless otherwise noted, all lab tests performed by: Division of Pathology and Laboratory Medicine [address] [place] [address] [phone] * (ABNORMAL) Urinalysis with Microscopic (02/05/2023 12:39 AM CDT) UA Color Davis(A) Straw-Yel low [facility] UA Appear Cloudy(A) Clear [facility] UA Glucose 500(A) NEG mg/dL [facility] UA Bili NEG NEG [facility] UA Ketones 40(A) NEG mg/dL [facility] UA Spec Grav 1.021 1.003 - 1.035 [facility] UA Blood NEG NEG [facility] UA pH 6.0 5.0 - 9.0 [facility] UA Protein 20(A) NEG mg/dL [facility] UA Urobilinogen NEG NEG [facility] UA Nitrite NEG NEG [facility] UA Leuk Est NEG NEG [facility] UA WBC NOT SEEN 0 - 2 /HPF [facility] Comment: Some reporting parameters within the Urinalysis test have changed due to the implementation of new instrumentation in the [facility] [place], allowing greater sensitivity of measurement. Urinalysis results reported by the [facility] using existing instrumentation, as well as Urinalysis testing performed manually or by backup methodology at the [facility] [place] will remain relatively unchanged. New reporting parameters and units will not be reported for all campuses. UA RBC 13(H) 0 - 2 /HPF [facility] UA Mucous NOT SEEN Not Seen-Trac e /HPF [facility] UA Bacteria NOT SEEN NOT SEEN /HPF [facility] UA Squam Epi OCC None-Occa sional /HPF [facility] Urine 02/05/2023 12:3 9 AM CDT 02/06/2023 12:42 AM CDT Irina Houston BUSINESS COMMUNICATIONS INSTRUCTOR URINE ORDERABLES [facility] Unless otherwise noted, all lab tests performed by: Division of Pathology and Laboratory Medicine [facility] [place] [address] * Tip Verification Central Vascular Access Device (01/29/2023 3:08 PM CDT) Narrative Justo Banuelos RN - 01/29/2023 3:08 PM CDT Justo Banuelos RN 01/29/2023 3:08 PM Central Vascular Access Device Tip Verification Performed by: Justo Banuelos RN Authorized by: Rashaun Wiley MD CVAD Properties Date device placed: 01/29/2023 Placed by: Justo Banuelos RN Device placement location: [facility] Catheter Type: PICC Catheter lumen: Double lumen Vein location: Basilic Laterality: Right Tip Verification Properties Diagnostic image available: Chest xray Written diagnostic report available: Yes Tip location per report: Superior vena cava (Nguyen Sumner MD) Tip in good position and cleared for infusion Rashaun Wiley MD IV THERAPY O RDERABLES * XR Chest 1 View Post Implant (01/29/2023 2:59 PM CDT) Anatomical Region Laterality Modality Chest Digital Radiogra phy 01/29/2023 3:01 PM CDT Impressions 01/29/2023 3:02 PM CDT Right PICC terminates over the mid superior vena cava without evidence of complication. 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 Findings: A right peripherally inserted longline catheter terminates over the mid superior vena cava. Patient positioning is lordotic. Small left pleural effusion is present. No pneumothorax. The lungs are mildly hypoinflated. The cardiomediastinal silhouette is within normal limits. 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 Findings: A right peripherally inserted longline catheter terminates over the midsuperior vena cava. Patient positioning is lordotic. Small left pleural effusion is present.No pneumothorax. The lungs are mildly hypoinflated. The cardiomediastinalsilhouette is within normal limits. IMPRESSION: Right PICC terminates over the mid superior vena cava without evidence ofcomplication. Rashaun Wiley MD [facility] ORDERABLES * Insert Vascular Access Device: PICC (01/29/2023 2:04 PM CDT) Narrative Justo Banuelos RN - 01/29/2023 2:04 PM CDT Justo Banuelos RN 01/29/2023 3:09 PM Insertion of 4 Fr double lumen right basilic PICC Date/Time: 01/29/2023 2:04 PM Proceduralist Type: RN Proceduralist: Justo Banuelos RN Ordered By: Rashaun Wiley MD Procedure Location: Inpatient Publicity Director present: yes (Saeed GRIFFIN) Pre- Procedure diagnosis: Adenoid cystic carcinoma of nasopharynx NOS Post-Procedure diagnosis: unchanged Indication for Procedure: Vascular Access and Chemotherapy Infusion Pre-Procedure Evaluation Patient examined pre-procedure and assessment (including allergies, labs, imaging, history and physical exam) performed. Informed consent obtained prior to procedure, the risks, benefits, and alternative discussed with patient/designated technology sales representative. Pre-procedure the patient was alert. Time out: universal protocol time out performed and documented. Anesthesia Anesthesia: local infiltration Local anesthetic: lidocaine 1% without epinephrine Anesthetic total (ml): 10 Sedation Patient sedated?: no Procedure Site preparation: Hand hygiene performed prior to insertion by all persons performing/assisting with procedure. Insertion site prepped and cleaned with asceptic technique (Sterile devices, and equipment used. Doors closed and traffic minimized during procedure). Insertion site prepped with chlorhexidine gluconate (Standard). Skin prep agent completely dried prior to procedure according to cilnical scientist guidelines. Maximum sterile barriers were used- sterile gloves, sterile gown, cap, mask and head to toe sterile cover. PICC catheter insertion tray used. The patient was placed in a Flat/Supineposition. The insertion site was anesthetized with lidocaine 1% without epinephrine via subcutaneous needle . A high level disinfected ultrasound probe with sterile cover was used for guidance . The ultrasound demonstrated compressibility of theright basilic vein. Venous access obtained using the micropuncture needle. Non-pulsatile dark red blood obtained. A permanent record of the ultrasound-guided vessel puncture image has been stored. Sterile Seldinger technique used (Modified ). MicroIntroducer with sheath inserted. Drip test performed to confirm venous placement. Dilator inserted gently over guidewire. A new [...] Needleless connector and IV tubing attached to catheter. Catheter sutured/secured in place, the site cleaned and sterile transparent dressing applied with biopatch and the dressing labeled with date, time, and initial. Catheter re-assessed and blood return through all lumens. Tip Verification: The right basilic PICC. P wave identified with placement. placement and tip verified using tip red cap and placement and tip verified by x-ray Centeral line is ready for use and in acceptable position. Complications: no immediate complication Patient Condition: patient tolerated the procedure well with no immediate complications, patient remained hemodynamically stable throughout the procedure, patient is warm and well perfused and patient does not report adverse symptoms Responsiveness: alert Patient Disposition: remain in inpatient bed and printed education material provided to patient/caregiver Comments N/A Rashaun Wiley MD IV THERAPY O RDERABLES * Hemoglobin (01/28/2023 8:24 AM CDT) Only the most recent of3 resultswithin the time period is included. Hgb 13.3 12.0 - 16.0 gm/dL [facility] Blood 01/28/2023 8:24 AM CDT 01/28/2023 8:30 AM CDT Mana Powers APRN LAB BLOOD ORDERABLES Performing Organization Address City/[facility]/ZIP Co de Phone Number [facility] Unless otherwise noted, all lab tests performed by: Division of Pathology and Laboratory Medicine [address] [place] [id number] * Hematocrit (01/28/2023 8:24 AM CDT) Only the most recent of3 resultswithin the time period is included. Pathologist [facility] [place] Hct 40.6 37.0 - 47.0 % [facility] Blood 01/28/2023 8:24 AM CDT 01/28/2023 8:30 AM CDT Mana Powers APRN LAB BLOOD ORDERABLES Performing Organization Address City/[facility] de Phone Number [facility] Unless otherwise noted, all lab tests performed by: Division of Pathology and Laboratory Medicine [address] [place] [phone] * (ABNORMAL) Urinalysis Microscopic Exam (01/26/2023 10:45 PM CDT) Pathologist [facility] [place] UA WBC 6(H) 0 - 2 /HPF [facility] Comment: Some reporting parameters within the Urinalysis test have changed due to the implementation of new instrumentation in the [facility] [place], allowing greater sensitivity of measurement. Urinalysis results reported by the [facility] using existing instrumentation, as well as Urinalysis testing performed manually or by backup methodology at the [facility] will remain relatively unchanged. New reporting parameters and units will not be reported for all campuses. UA RBC <1 0 - 2 /HPF [facility] UA Mucous NOT SEEN Not Seen-Trac e /HPF [facility] UA Bacteria NOT SEEN NOT SEEN /HPF [facility] UA Squam Epi OCC None-Occa sional /HPF [facility] Urine 01/26/2023 10:4 5 PM CDT 01/26/2023 10:49 PM CDT Amanda Proctor MD LAB BLOOD ORDERABLES Performing Organization Address City/[facility] Co de Phone Number [facility] Unless otherwise noted, all lab tests performed by: Division of Pathology and Laboratory Medicine [address] [place] [phone] * (ABNORMAL) Urinalysis w/Microscopic if Indicated (01/26/2023 10:45 PM CDT) Only the most recent of2 resultswithin the time period is included. Pathologist [facility] [place] UA Color Straw Straw-[place] ow [facility] UA Appear Clear Clear [facility] UA Glucose 500(A) NEG mg/dL [facility] UA Bili NEG NEG [facility] UA Ketones NEG NEG mg/dL [facility] UA Spec Grav 1.020 1.003 - 1.035 [facility] UA Blood NEG NEG [facility] UA pH 5.5 5.0 - 9.0 [facility] UA Protein 30(A) NEG mg/dL [facility] UA Urobilinogen NEG NEG [facility] UA Nitrite NEG NEG [facility] UA Leuk Est NEG NEG [facility] Urine 01/26/2023 10:4 5 PM CDT 01/26/2023 10:49 PM CDT Amanda Proctor MD URINE ORDERABLES Performing Organization Address City/[facility] Co de Phone Number [facility] Unless otherwise noted, all lab tests performed by: Division of Pathology and Laboratory Medicine [address] [place] [phone] * (ABNORMAL) LDH (01/26/2023 2:44 PM CDT) Only the most recent of3 resultswithin the time period is included. [facility] LDH 289(H) 135 - 214 U/L [facility] Comment:Results greater than 1651 U/L may not be reliable due to matrix effect with extended dilution as it exceeds the cilnical scientist's recommended limit. Caution should be exercised when interpreting such values and done in conjunction with clinical context. Blood 01/26/2023 2:44 PM CDT 01/26/2023 3:07 PM CDT Amanda Proctor MD LAB BLOOD ORDERABLES [facility] Unless otherwise noted, all lab tests performed by: Division of Pathology and Laboratory Medicine [address] [place] [phone] * (ABNORMAL) Controlled Substance Monitoring Panel, Urine (01/20/2023 12:37 PM CDT) Urine Creatinine 55.1 mg/dL [facility] Urine Specific [place] 1.014 [facility] Urine Ph 6.2 [facility] Urine Oxidants Negative Cutoff: 200 mg/L [facility] Urine Comment Normal [facility] U Barbiturates-Luu Negative Cutoff: 200 ng/mL [facility] U Cocaine Lvl-Luu Negative Cutoff: 150 ng/mL [facility] Comment: This cocaine immunoassay targets benzoylecgonine the primary metabolite of cocaine. U THC-Warner See Footnote(A) Cutoff: 50 ng/mL [facility] Comment: RESULT: Presumptive Positive This immunoassay targets delta-9 tetrahydrocannabinol carboxylic acid (THC-COOH), a metabolite of delta-9 tetrahydrocannabinol the main psychoactive ingredient of marijuana. Drug confirmation to follow. Presumptive Positive means that the screening method is positive, but the test needs to be run by a confirmatory method before being finalized. ADDITIONAL INFORMATION This report is intended for use in clinical monitoring or management of patients. It is not intended for use in employment-related testing. Codeine Not Detected Cutoff: 25 ng/mL [facility] Comment:Tylenol 3 Odcahap-2-gypj-glucuron geovani Not Detected Cutoff: 100 ng/mL [facility] Comment:Metabolite of codein e Morphine Not Detected Cutoff: 25 ng/mL [facility] Comment: Martha Mary, MS Contin; Also a minor metabolite (10%) of codeine and can be seen in low concentrations (<2,000 ng/mL) with poppy seed ingestion. Cbtkzpas-7-rfao-glucuro nide Not Detected Cutoff: 100 ng/mL [facility] Comment:Metabolite of morphi ne 6-monoacetylmorphine Not Detected Cutoff: 25 ng/mL [facility] Comment:Metabolite of heroin Hydrocodone Not Detected Cutoff: 25 ng/mL [facility] Comment: Lortab, [place], Vicodin; Also a very minor metabolite of codeine and impurity (<1%) of oxycodone. Norhydrocodone Not Detected Cutoff: 25 ng/mL [facility] Comment:Metabolite of hydroc odone Dihydrocodeine Not Detected Cutoff: 25 ng/mL [facility] Comment:Metabolite of hydroc odone Hydromorphone Not Detected Cutoff: 25 ng/mL [facility] Comment: Dilaudid, Exalgo; Also a metabolite of hydrocodone and a minor (<5%) metabolite of morphine. Vvjqzatzlymyx-4-hozm-gl ucuronide Not Detected Cutoff: 100 ng/mL [facility] Comment:Metabolite of hydrom orphone Oxycodone Present(A) Cutoff: 25 ng/mL [facility] Comment:Endocet, Percocet, O xycontin Noroxycodone Present(A) Cutoff: 25 ng/mL [facility] Comment:Metabolite of oxycod one Oxymorphone Not Detected Cutoff: 25 ng/mL [facility] Comment:Numorphan, Opana; Al so a metabolite of oxycodone. Hbccumjmame-5-cejb-gluc uronide Not Detected Cutoff: 100 ng/mL [facility] Comment:Metabolite of oxymor phone and/or naloxone (nornaloxone) Noroxymorphone Present(A) Cutoff: 25 ng/mL [facility] Comment:Metabolite of oxymor phone and/or naloxone (nornaloxone) Fentanyl Not Detected Cutoff: 2 ng/mL [facility] Comment:Actiq, Duragesic, Fe ntora Norfentanyl Not Detected Cutoff: 2 ng/mL [facility] Comment:Metabolite of fentan yl Meperidine Not Detected Cutoff: 25 ng/mL [facility] Comment:Demerol Normeperidine Not Detected Cutoff: 25 ng/mL [facility] Comment:Metabolite of meperi dine Naloxone Not Detected Cutoff: 25 ng/mL [facility] Comment:Narcan Uececmzd-3-ddyp-glucuro nide Not Detected Cutoff: 100 ng/mL [facility] Comment:Metabolite of naloxo ne U Methadone Not Detected Cutoff: 25 ng/mL [facility] Comment:Dolophine EDDP Not Detected Cutoff: 25 ng/mL [facility] Comment:Metabolite of methad one Propoxyphene Not Detected Cutoff: 25 ng/mL [facility] Comment:Darvon, Darvocet Norpropoxyphene Not Detected Cutoff: 25 ng/mL [facility] Comment:Metabolite of propox yphene Tramadol Not Detected Cutoff: 25 ng/mL [facility] Comment:Tradol, Ultram, Ultr acet O-desmethyltramadol Not Detected Cutoff: 25 ng/mL [facility] Comment:Metabolite of tramad ol Tapentadol Not Detected Cutoff: 25 ng/mL [facility] Comment:Nucynta Uocsorkcaz-jqyw-iahvevb nide Not Detected Cutoff: 100 ng/mL [facility] Comment:Metabolite of tapent adol Buprenorphine Not Detected Cutoff: 5 ng/mL [facility] Comment:Buprenex, Suboxone Norbuprenorphine Not Detected Cutoff: 5 ng/mL [facility] Comment:Metabolite of bupren orphine Norbuprenorphine Glucuronide Not Detected Cutoff: 20 ng/mL [facility] Comment:Metabolite of bupren orphine Opioid Interpretation See Footnote [facility] Comment: Test detected the presence of oxycodone and one of its metabolites (noroxycodone) along with noroxymorphone (metabolite of oxymorphone). Suspect use of oxymorphone and/or oxycodone within the past three days. Trace amounts of oxycodone can be found as an impurity in oxymorphone. ADDITIONAL INFORMATION This test was developed and its performance characteristics determined by [facility] in a manner consistent with CLIA requirements. This test has not been cleared or approved by the U.S. Food and Drug Administration. Alprazolam Urine Present(A) Cutoff: 10 ng/mL [facility] Comment:Xanax Alpha-Hydroxyalprazolam Urine Present(A) Cutoff: 10 ng/mL [facility] Comment:Metabolite of Alpraz olam Alpha-Hydroxyalprazolam Glucuronide Urine Present(A) Cutoff: 50 ng/mL [facility] Comment:Metabolite of Alpraz olam Chlordiazepoxide Urine Not Detected Cutoff: 10 ng/mL [facility] Comment:Librium Colbazam Urine Not Detected Cutoff: 10 ng/mL [facility] Comment:Fripattium, Onfi N-Desmethylclobazam Urine Not Detected Cutoff: 200 ng/mL [facility] Comment:Metabolite of Clobaz am Clonazepam Urine Not Detected Cutoff: 10 ng/mL [facility] Comment:Klonopin, Rivotril 7-Aminoclonazepam Urine Not Detected Cutoff: 10 ng/mL [facility] Comment:Metabolite of Clonaz epam Diazepam Urine Not Detected Cutoff: 10 ng/mL [facility] Comment:Valium Nordiazepam Urine Not Detected Cutoff: 10 ng/mL [facility] Comment:Metabolite of Chlord iazepoxide, Diazepam, or Prazepam. Flunitrazepam Urine Not Detected Cutoff: 10 ng/mL [facility] Comment:Rohypnol 7-Aminoflunitrazepam Urine Not Detected Cutoff: 10 ng/mL [facility] Comment:Metabolite of Flunit razepam FlUrinerazepam Urine Not Detected Cutoff: 10 ng/mL [facility] Comment:Dalmane 2-Hydroxy Ethyl Flurazepam Urine Not Detected Cutoff: 10 ng/mL [facility] Comment:Metabolite of Fluraz epam Lorazepam Urine Not Detected Cutoff: 10 ng/mL [facility] Comment:Ativan Lorazepam Glucuronide Urine Not Detected Cutoff: 50 ng/mL [facility] Comment:Metabolite of Loraze chris Midazolam Urine Not Detected Cutoff: 10 ng/mL [facility] Comment:Versed Alpha-Hydroxy Midazolam Urine Not Detected Cutoff: 10 ng/mL [facility] Comment:Metabolite of Midazo lopes Oxazepam Urine Not Detected Cutoff: 10 ng/mL [facility] Comment: Serax; Also a metabolite of Chlordiazepoxide, Diazepam, or Temazepam. Oxazepam Glucuronide Urine Not Detected Cutoff: 50 ng/mL [facility] Comment:Metabolite of Oxazep am Prazepam Urine Not Detected Cutoff: 10 ng/mL [facility] Comment:Centrax Temazepam Urine Not Detected Cutoff: 10 ng/mL [facility] Comment:Restoril; Also a met abolite of Diazepam. Temazepam Glucuronide Urine Not Detected Cutoff: 50 ng/mL [facility] Comment:Metabolite of Temaze chris Triazolam Urine Not Detected Cutoff: 10 ng/mL [facility] Comment:Halcion Alpha-Hydroxy Triazolam Urine Not Detected Cutoff: 10 ng/mL [facility] Comment:Metabolite of Triazo lopes Zolpidem Urine Not Detected Cutoff: 10 ng/mL [facility] Comment:Ambien Zolpidem Rpnap-2-Gfnnzynhyj Acid Urine Present(A) Cutoff: 10 ng/mL [facility] Comment:Metabolite of Zolpid em Benzodiazepine Interp Urine See Footnote [facility] Comment: Test detected the presence of alprazolam and two of its metabolites (alpha-hydroxyalprazolam and alpha-hydroxyalprazolam glucuronide). Suspect use of alprazolam within the past three days. Test detected the presence of zolpidem gwhqok-9-aotzwxctrm acid (metabolite of zolpidem) only. Suspect use of zolpidem within the past four days. ADDITIONAL INFORMATION This test was developed and its performance characteristics determined by [facility] in a manner consistent with CLIA requirements. This test has not been cleared or approved by the U.S. Food and Drug Administration. Methamphetamine Not Detected Cutoff: 100 ng/mL [facility] Comment:Desoxyn Amphetamine Not Detected Cutoff: 100 ng/mL [facility] Comment: Dyanavel XR, Adzenys ER, Adderall, Vyvanse; Also a metabolite of methamphetamine 3,4-Methylenedioxymetha mphetamine (MDMA) Not Detected Cutoff: 100 ng/mL [facility] 3,2-Pnojoiqmxbdlai-T-Et hylamphetamine (MDEA) Not Detected Cutoff: 100 ng/mL [facility] 3,4-Methylenedioxyamphe tamine (MDA) Not Detected Cutoff: 100 ng/mL [facility] Comment:Also a metabolite of MDMA and/or MDEA Ephedrine Not Detected Cutoff: 100 ng/mL [facility] Pseudoephedrine Present(A) Cutoff: 100 ng/mL [facility] Comment:Sudafed Phentermine Not Detected Cutoff: 100 ng/mL [facility] Comment:Adipex-P, Lomaira, Q symia Phencyclidine (PCP) Not Detected Cutoff: 20 ng/mL [facility] Methylphenidate Not Detected Cutoff: 20 ng/mL [facility] Comment:Ritalin, Concerta Ritalinic acid Not Detected Cutoff: 100 ng/mL [facility] Comment:Metabolite of methyl phenidate Stimulant Interpretation See Footnote [facility] Comment: Test detected the presence of pseudoephedrine. Suspect use of pseudoephedrine within the past three days. ADDITIONAL INFORMATION This test was developed and its performance characteristics determined by [facility] in a manner consistent with CLIA requirements. This test has not been cleared or approved by the U.S. Food and Drug Administration. Test Performed by: [facility] - [address] [address] [place] [employer] [place]: Yonathan Guzman M.D. Ph.D.; CLIA# [id number] Patients Current Medications NOT ANSWERED [facility] Comment: ADDITIONAL INFORMATION Accuracy and completeness of declared medications on reports solely dependent on information submitted by client. Urine 01/20/2023 12:3 7 PM CDT 01/20/2023 8:31 PM CDT Rogerio Kramer MD URINE ORDER GODWIN [facility] Unless otherwise noted, all lab tests performed by: Division of Pathology and Laboratory Medicine [address] [place] [phone] * (ABNORMAL) POC Urine Drug Screen (01/20/2023 12:37 PM CDT) POC U Amp Negative Negative [facility] Comment: Drug Abuse Cutoff Concentration: Cutoff: 1000 ng/mL POC U Barbit Negative Negative [facility] Comment: Drug Abuse Cutoff Concentration: 300 ng/mL POC U Benzo Positive(A) Negative [facility] Comment: Drug Abuse Cutoff Concentration: Cutoff: 300 ng/ mL POC U Cocaine Negative Negative [facility] Comment: Drug Abuse Cutoff Concentration: Cutoff: 300 ng/mL POC U THC Positive(A) Negative [facility] Comment: Drug Abuse Cutoff Concentration: Cutoff: 50 ng/mL POC U Methd Negative Negative [facility] Comment: Drug Abuse Cutoff Concentration: Cutoff: 300 ng/mL POC U Mampht Negative Negative [facility] Comment: Drug Abuse Cutoff Concentration: Cutoff: 1000 ng/mL POC U Opiate Negative Negative [facility] Comment: Drug Abuse Cutoff Concentration: Cutoff: 2000 ng/mL POC U Oxycod Positive(A) Negative [facility] Comment: Drug Abuse Cutoff Concentration: Cutoff: 100 ng/mL Due to the assay cross reactivity between Oxycodone and Opiates, and lower sensitivity compared to GC-MS method, the test results may be falsely positive or falsely negative. Confirmation with concurrent GC-MS results is recommended. POC U PCP Negative Negative [facility] Comment: Drug Abuse Cutoff Concentration: Cutoff: 25 ng/mL POC U TCA Negative Negative [facility] Comment: Drug Abuse Cutoff Concentration: Cutoff: 1000 ng/mL POC U PPX Negative Negative [facility] Comment: Drug Abuse Cutoff Concentration: Cutoff: 300 ng/mL Method description: The one step multi-drug screen test card with integrated iCup is an immunoassay based competitive binding assay. Drugs which may be present in the urine specimen compete against their respective drug conjugate for binding sites on their specific antibody. During testing, a urine specimen migrates upward by capillary action. The presence of drug above the cut-off concentration will saturate all the binding sites of the antibody. The antibody will react with the drug- protein conjugate and a visible colored line will show up in the test region. A drug- positive urine specimen will not generate a colored line in the specific test region of the strip because of drug competition, while a drug-negative urine specimen will generate a line in the test region because of the absence of drug competition. Urine, Clean Catch 01/20/2023 12:37 PM CDT 01/20/2023 1:10 PM CDT Narrative [facility] - 01/20/2023 1:30 PM CDT The POC Urine Qualitative Drug Screen Panel report is intended for use in clinical monitoring or management of patients. Unconfirmed screening results must not be used for non-medical purposes such as legal or employment-related testing. Rogerio Kramer MD POINT OF ID RE TEST ORDERABLES [facility] Unless otherwise noted, all lab tests performed by: Division of Pathology and Laboratory Medicine [address] [place] [phone] * Tetrahydocannabinol (THC), Quantitative, Urine (01/20/2023 12:37 PM CDT) U THC GC/MS-Warner n/a [facility] U THC Inter-Warner see note [facility] Comment: Carboxy-THC Confirmation, U: Carboxy-THC Interpretation: Positive ADDITIONAL INFORMATION: This report is intended for use in clinical monitoring and management of patients. It is not intended for use in employment-related testing. ----- --------- Delta-8 Carboxy-Tetrahydrocannabinol by LC-MS/MS: 672 ng/mL Reference Value: Cutoff: 5 Delta-9 Carboxy-Tetrahydrocannabinol by LC-MS/MS: 42 ng/mL Reference Value: Cutoff: 5 PERFORMING LAB: [facility] [address] [facility] [address] Yonathan Guzman M.D. Ph.D. [id number] U THC [facility] n/a [facility] Urine, Clean Catch 01/20/2023 12:37 PM CDT 01/27/2023 11:34 AM CDT Rogerio Kramer MD URINE ORDER GODWIN [facility] Unless otherwise noted, all lab tests performed by: Division of Pathology and Laboratory Medicine [address] [place] [address] * X-ray Knee 1 Or 2 Views Right (01/11/2023 10:22 PM CDT) Anatomical Region Laterality Modality Knee, Extremity Digital Radiogra phy 01/12/2023 8:20 AM CDT Impressions 01/12/2023 8:22 AM CDT Right knee joint osteoarthritis, primarily the medial compartment. Narrative 01/12/2023 8:22 AM CDT FULL RESULT: Examination: XR KNEE 1 OR 2 VW RIGHT, 01/11/2023 10:22 PM. 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 A lesser degree of osteoarthritis is present in the patellofemoral joint. Lateral joint space is manifested by peripheral spur formation. No joint effusion detected. Procedure Note Yonathan Daniel Jr., MD - 01/12/2023 FULL RESULT: Examination: XR KNEE 1 OR 2 VW RIGHT, 01/11/2023 10:22 PM. Clinical History: 57-year-old woman with left nasopharyngeal adenoidcystic carcinoma, now with swallowing painful Indication: Right knee pain Comparison: None Technique: XR KNEE 1 OR 2 VW RIGHT Findings: Osteoarthritis of the right knee, primarily in the medialcompartment with subtotal cartilage loss and moderate spur formation. Alesser degree of osteoarthritis is present in the patellofemoral joint.Lateral joint space is manifested by peripheral spur formation. No jointeffusion detected. IMPRESSION: Right knee joint osteoarthritis, primarily the medial compartment. Nguyen Barcenas MD IMG DIAGNOSTIC IMAG ING ORDERABLES * CT Head without Contrast (01/11/2023 6:29 PM CDT) Only the most recent of2 resultswithin the time period is included. Anatomical Region Laterality Modality Head Computed Tomogra phy 01/11/2023 6:31 PM CDT Impressions 01/11/2023 6:58 PM CDT 1. No acute intracranial finding including new mass, hemorrhage or large territorial infarction. 2. Known left nasopharyngeal adenoid cystic carcinoma is better visualized on the recent skull base MRI. I personally reviewed these image(s) along with the resident's/fellow's interpretations, certify that if a procedure was performed I was physically present, and agree with the final report. Narrative 01/11/2023 6:58 PM CDT FULL RESULT: Examination: CT HEAD WO CONTRAST on 01/11/2023 6:29 PM Clinical History: Left nasopharyngeal adenoid cystic carcinoma. Indication: Headache, headache Comparison: CT head without contrast dated 12/10/2022 and MRI skull base dated 11/30/2022. Technique: CT of the head without contrast. Findings: As more definitively identified on prior MRI skull base, again seen is the left nasopharyngeal adenoid cystic carcinoma (series 3, image 11). No evidence of new mass, intracranial hemorrhage or large territorial infarction. The brain parenchyma is otherwise unremarkable. The ventricles, sulci and cisterns are within normal limits. The extracranial structures are unremarkable. Procedure Note Stefanie Cline MD - 01/11/2023 FULL RESULT: Examination: CT HEAD WO CONTRAST on 01/11/2023 6:29 PM Clinical History: Left nasopharyngeal adenoid cystic carcinoma. Indication: Headache, headache Comparison: CT head without contrast dated 12/10/2022 and MRI skull basedated 11/30/2022. Technique: CT of the head without contrast. Findings: As more definitively identified on prior MRI skull base, again seen is theleft nasopharyngeal adenoid cystic carcinoma (series 3, image 11). Noevidence of new mass, intracranial hemorrhage or large territorialinfarction. The brain parenchyma is otherwise unremarkable. The ventricles, sulci and cisterns are within normal limits. The extracranial structures are unremarkable. IMPRESSION: 1. No acute intracranial finding including new mass, hemorrhage or largeterritorial infarction. 2. Known left nasopharyngeal adenoid cystic carcinoma is bettervisualized on the recent skull base MRI. I personally reviewed these image(s) along with the resident's/fellow'sinterpretations, certify that if a procedure was performed I wasphysically present, and agree with the final report. Nguyen Barcenas MD IMG CT ORDERABLES * Ny Visual Field, Intermediate - OU - Both Eyes (12/29/2022 10:51 AM TRUCK SHOP MECHANIC) Narrative Suzanne Mcgrath MD - 12/30/2022 11:50 AM TR[employer] SHOP MECHANIC Right Eye Threshold was 30-2. The AVF laterality was right. Strategy was TOMER. Left Eye Threshold was 30-2. The AVF laterality was left. Strategy was TOMER. Notes OS: restarted x 2 due to increased in BS errors. Pt was falling asleep during testing on left eye - I continued to talk and encourage pt to continue looking straight ahead. low test reliability. 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 With borderline thinning temporally right eye Suzanne Mcgrath MD OPHTHALMOLOGY IMG OR DERABLES * OCT, Retina - OU - Both Eyes (12/29/2022 10:43 AM TRUCK SHOP MECHANIC) Suzanne Hill MD - 12/30/2022 11:44 AM TRUCK SHOP MECHANIC Normal macular volume. No sign of serous retinopathy Suzanne Mcgrath MD OPHTHALMOLOGY IMG OR DERABLES * COVID-19 (SARS-CoV-2) PCR-Asymptomatic [facility] (12/23/2022 12:01 PM TRUCK SHOP MECHANIC) [facility] COVID19 (SARS CoV-2) Result Not Detected Not Detected [facility] Comment: This test is a qualitative reverse-transcriptase polymerase chain reaction (RT- PCR) developed for the Myrna RUBY 6800 system and intended for qualitative detection of SARS CoV-2 RNA in nasopharyngeal and oropharyngeal swab specimens collected from any individuals, including those suspected of COVID-19 by their healthcare provider, and those without symptoms or other reasons to suspect COVID-19. A fact sheet for patients provided by the cilnical scientist ([employer]) can be reviewed at: https://www.fda.gov/media/191477/download. A fact sheet for Health Care providers is provided by the cilnical scientist ([employer]) and can be reviewed at: https://www.fda.gov/media/680924/download Results must be interpreted within the context of all relevant clinical and laboratory findings and should not form the sole basis for a diagnosis or treatment decision. Positive results do not rule out bacterial infection or co-infection with other viruses. Negative results do not rule out SARS-CoV-2 and must be combined with clinical observations, patient history, and/or epidemiological information. "Presumptive Positive" results are due to partial amplification of SARS-CoV-2 targets and indicates [...] When an "Invalid" result occurs, it is recommended to wait 3 days before submitting a new specimen for testing if clinically indicated. This assay has been approved by the FDA for use only under Emergency Use Authorization (EUA) in laboratories that have been CLIA-certified to perform moderate-complexity and high-complexity tests. The performance characteristics of this assay were verified by the Microbiology Laboratory at [facility], CLIA Accreditation #: [id number] and CAP Accreditation #: [id number]. COVID19 SARS Source ROLL WRAPPER Swab [facility] COVID19 SARS Indication Pre-Radiati on Therapy [facility] Nasopharyngeal Swab 12/23/19 12:01 PM TRUCK SHOP MECHANIC 12/23/2022 3:41 PM TRUCK SHOP MECHANIC Winter Luu MD MICROBIOLOGY - GEN ERAL ORDERABLES [facility] Unless otherwise noted, all lab tests performed by: Division of Pathology and Laboratory Medicine [address] [place] [id number] * OCT, Optic Nerve - OU - Both Eyes (12/15/2022 10:37 AM TRUCK SHOP MECHANIC) Sheridan Angulo MD - 12/17/2022 12:25 PM TRUCK SHOP MECHANIC Right Eye Average nerve fiber layer thickness consistent with normal Left Eye Average nerve fiber layer thickness consistent with normal Sheridan Alvarez MD OPHTHALMOLOGY IMG OR DERABLES * OCT, Retina - OU - Both Eyes (12/15/2022 10:37 AM TRUCK SHOP MECHANIC) Sheridan Angulo MD - 12/17/2022 12:25 PM TRUCK SHOP MECHANIC Right Eye This is the baseline exam. Findings include normal observations. Left Eye This is the baseline exam. Findings include normal observations. Sheridan Alvarez MD OPHTHALMOLOGY IMG OR DERABLES * Fundus Photos - OU - Both Eyes (12/15/2022 10:37 AM TRUCK SHOP MECHANIC) Sheridan Angulo MD - 12/17/2022 12:25 PM TRUCK SHOP MECHANIC Right Eye Basline Exam. Sheridan Alvarez MD OPHTHALMOLOGY IMG OR DERABLES * 3D Dental Imaging (iCAT) (12/15/2022 8:42 AM TRUCK SHOP MECHANIC) [employer], Documentation - 12/15/2022 8:42 AM TRUCK SHOP MECHANIC This procedure requires no interpretation from the radiologist. Adegbenga Otun DDS IMG NON DI ORDERABLE S * FL Modified Barium Swallow w Speech (12/14/2022 2:37 PM TRUCK SHOP MECHANIC) Anatomical Region Laterality Modality Neck Radio Fluoroscop y 12/14/2022 2:58 PM TRUCK SHOP MECHANIC Impressions 12/14/2022 3:08 PM TRUCK SHOP MECHANIC 1. Flash penetration without aspiration seen with thin liquid barium. 2. Please refer to the separately dictated speech pathology report for further details and recommendations. Narrative 12/14/2022 3:08 PM TRUCK SHOP MECHANIC FULL RESULT: Examination: FL MODIFIED BARIUM SWALLOW W SPEECH, 12/14/2022 2:37 PM Clinical History: Adenoid cystic carcinoma. Indication: Evaluate swallowing function, dysphagia. Comparison: None. Technique: A modified barium [...] with pudding, and cracker. There was no pharyngeal residue. Pharyngeal contraction was symmetric. Procedure Note Erica Miller PA - 12/14/2022 FULL RESULT: Examination: FL MODIFIED BARIUM SWALLOW W SPEECH, 12/14/2022 2:37 PM Clinical History: Adenoid cystic carcinoma. Indication: Evaluate swallowing function, dysphagia. Comparison: None. Technique: A [facility] The patient was given barium mixed with a variety ofconsistencies including thin liquid, pudding, and cracker to swallow bymouth under videofluoroscopy. Findings: The oral bolus formation and transit were normal. There was nonasopharyngeal reflux. There was flash penetration without aspiration seenwith thin liquid barium. There was no penetration or aspiration seen withpudding, and cracker. There was no pharyngeal residue. Pharyngealcontraction was symmetric. IMPRESSION: 1. Flash penetration without aspiration seen with thin liquid barium. 2. Please refer to the separately dictated speech pathology report forfurther details and recommendations. Travis Lopez MD IMG FLUOROSCOPY ORD ERABLES * (ABNORMAL) ABG Venous (12/11/2022 6:21 PM TRUCK SHOP MECHANIC) pH Raghavendra 7.40 7.32 - 7.43 [facility] Comment:Results are correcte d for a body temp of 37C pCO2 Raghavendra 47.6 41.0 - 51.0 mmHg [facility] pO2 Raghavendra 52 mmHg [place] [facility] HCO3 Raghavendra 29(H) 21 - 28 mmol/L [facility] Base Excess Raghavendra 3 -2 - 3 mmol/L [facility] O2 Sat Raghavendra 87 % [place] [facility] Blood 12/11/2022 6:21 PM TRUCK SHOP MECHANIC 12/11/2022 6:29 PM TRUCK SHOP MECHANIC Travis Lopez MD LAB BLOOD ORDERABLE S [facility] Unless otherwise noted, all lab tests performed by: Division of Pathology and Laboratory Medicine [address] [place] [id number] * Ketone Bodies Qualitative (12/11/2022 5:19 PM TRUCK SHOP MECHANIC) Pathologist [facility] [place] UA Ketones NEG NEG mg/dL [facility] [place] Urine 12/11/2022 5:19 PM TRUCK SHOP MECHANIC 12/11/2022 5:24 PM TRUCK SHOP MECHANIC Waleska Salinas APRN URINE ORDERABLES Performing Organization Address City/[facility]/ZIP Co de Phone Number [facility] Unless otherwise noted, all lab tests performed by: Division of Pathology and Laboratory Medicine [address] [place] [address] * POC Critical (12/11/2022 3:34 PM TRUCK SHOP MECHANIC) Only the most recent of2 resultswithin the time period is included. [facility] POC Critical Comment See Note [facility] Comment:Test performer notif ied Ordering Licensed Provider and /or designee of POC Glucose Screen critical Results.. Blood 12/11/2022 3:34 PM TRUCK SHOP MECHANIC 12/11/2022 3:34 PM TRUCK SHOP MECHANIC Travis Lopez MD POINT OF CARE TEST ORDERABLES Performing Organization Address City/[facility]/ZIP Co de Phone Number [facility] Unless otherwise noted, all lab tests performed by: Division of Pathology and Laboratory Medicine [address] [place] [phone] * (ABNORMAL) POC VBG+Lac (12/09/2022 9:36 PM TRUCK SHOP MECHANIC) Pathologist [facility] [place] POC VB pH 7.46(H) 7.31 - 7.41 [facility] POC VB pCO2 42 41 - 51 mmHg [facility] POC VB pO2 61 mmHg [facility] POC VB TCO2 31(H) 24 - 29 mEq/L [facility] POC VB Bicarb 30(H) 23 - 28 mmol/L [facility] POC VB Base Ex 5(H) -2 - 3 mmol/L [facility] POC VB O2 Sat 92 % [facility] POC VB LAC 2.4(H) 0.9 - 1.7 mmol/L [facility] Comment: Method description: The i-STAT is an analyzer used for in vitro quantification of various analytes in whole blood. The device uses a single disposable cartridge which contains microfabricated sensors, a calibration solution, fluidics system, and a waste chamber. Each test cartridge contains chemically sensitive biosensors on a silicon chip that are configured to perform specific tests. The microfabricated sensors measure analyte concentration by an electrochemical assay. POC Sample Type Venous [facility] POC Clean Dev Yes [facility] Performing Lab [facility] POC [facility] Comment:[facility], [address] [place] [address]; Rouge Sifter And Miller: Chula Jacob MD; Waived Point of Care Testing - Gabrielle Mueller MD Blood 12/09/2022 9:36 PM TRUCK SHOP MECHANIC 12/09/2022 9:36 PM TRUCK SHOP MECHANIC Roberto Carlos Walsh MD POCT ORDERABLES - DE VICE Performing Organization Address [facility] de Phone Number [facility] Unless otherwise noted, all lab tests performed by: Division of Pathology and Laboratory Medicine [address] [place] [address] * Ammonia Level (12/09/2022 6:01 PM TRUCK SHOP MECHANIC) Ammonia 18 11 - 51 mcmol/L [facility] Blood 12/09/2022 6:01 PM TRUCK SHOP MECHANIC 12/09/2022 6:15 PM TRUCK SHOP MECHANIC Tammy Mike MD LAB BLOOD ORDERABLES Performing Organization Address [facility] de Phone Number [facility] Unless otherwise noted, all lab tests performed by: Division of Pathology and Laboratory Medicine [address] [place] [address] * MISSY GRIFFIN MDA CHRISTINE: Mutation Analysis Precision Panel Report (12/04/2022 10:56 AM TRUCK SHOP MECHANIC) 12/04/2022 10:5 6 AM TRUCK SHOP MECHANIC Lorena Hdez APRN, MDA AP MOLECULA R BIOMARKERS Performing Organization Address [facility]/ZIP Co de Phone Number [facility] Unless otherwise noted, all lab tests performed by: Division of Pathology and Laboratory Medicine [address] [place] [id number] * Solid Tumor Genomic Assay Fusions 2018 Interpretation and Report (12/04/2022 10:56 AM TRUCK SHOP MECHANIC) 12/04/2022 10:5 6 AM TRUCK SHOP MECHANIC 12/04/2022 10:56 AM TRUCK SHOP MECHANIC Lorena Hdez APRN, MDA AP MOLECULA R BIOMARKERS [facility] Unless otherwise noted, all lab tests performed by: Division of Pathology and Laboratory Medicine [address] [place] [id number] * Molecular Diagnostics Specimen Collection -FFPE (12/04/2022 10:56 AM TRUCK SHOP MECHANIC) Molecular Diagnostics (Received) Yes [facility] Jael Ap Link [id number] [facility] Block Number (Qualitative) BLANK [facility] Outside Accession (Qualitative) [id number] [facility] FFPE 12/04/2022 10:5 6 AM TRUCK SHOP MECHANIC 12/04/2022 10:56 AM TRUCK SHOP MECHANIC Lorena LOUIS MD NONBL OOD COLLECTIONS Performing Organization Address City/[facility]/ZIP Co de Phone Number [facility] Unless otherwise noted, all lab tests performed by: Division of Pathology and Laboratory Medicine [address] [place] [id number] * MRI Skull Base with and without Contrast (11/30/2022 11:12 AM TRUCK SHOP MECHANIC) Anatomical Region Laterality Modality Head Magnetic Resonan ce 12/01/2022 9:21 AM TRUCK SHOP MECHANIC Impressions 12/01/2022 1:06 PM TRUCK SHOP MECHANIC 1. 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 2. Tumor likely involves the lesser wing of the left sphenoid bone. 3. No lateral retropharyngeal or visualized cervical adenopathy. Narrative 12/01/2022 1:06 PM TRUCK SHOP MECHANIC FULL RESULT: Examination: MRI SKULL BASE WITH AND WITHOUT CONTRAST on 11/30/2022 11:12 AM Clinical History: Outside biopsy of left nasopharynx showed notch 1 positive adenoid cystic carcinoma, cribriform type. Left eye double vision. Difficulty swallowing. Indication: staging Comparison: PET/CT 11/27/2022. Technique: Multiplanar MR images of the face were obtained before and after intravenous contrast administration. Axial T-weighted images of the neck were also obtained. Findings: The left nasopharyngeal carcinoma extends to midline and probably slightly past midline. The tumor measures 3.5 x 3.1 cm on image 27 of series 17. Enhancement of left foramen ovale and left V3 identified. The bone of the left middle cranial fossa is probably involved/lesser sphenoid wing as marked on image 27 of series 14. Enhancement at left vidian canal is suspected on image 25 of series 17. Enhancement of left jugular foramen pars nervosa is marked on image 23 of series 15. Meckel cave, cavernous sinus and foramen rotundum demonstrate no abnormal enhancement. Sclerosis of the cortex of the clivus or possibly infiltration of the bone is suspected. There is no lateral retropharyngeal or cervical adenopathy. Focal hyperintensity in the left neck on image 39 of series 17 is reviewed with T2 hyperintensity is likely artifactual. There is no corresponding finding on axial series or on PET/CT. 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 Left eye doublevision. Difficulty swallowing. Indication: staging Comparison: PET/CT 11/27/2022. Technique: Multiplanar MR images of the face were obtained before andafter intravenous contrast administration. Axial T-weighted images of theneck were also obtained. Findings: The left nasopharyngeal carcinoma extends to midline and probably slightlypast midline. The tumor measures 3.5 x 3.1 cm on image 27 of series 17.Enhancement of left foramen ovale and left V3 identified. The bone of theleft middle cranial fossa is probably involved/lesser sphenoid wing asmarked on image 27 of series 14. Enhancement at left vidian canal issuspected on image 25 of series 17. Enhancement of left jugular foramenpars nervosa is marked on image 23 of series 15. Meckel cave, cavernoussinus and foramen rotundum demonstrate no abnormal enhancement. Sclerosis of the cortex of the clivus or possibly infiltration of the boneis suspected. There is no lateral retropharyngeal or cervical adenopathy. Focalhyperintensity in the left neck on image 39 of series 17 is reviewed withT2 hyperintensity is likely artifactual. There is no corresponding findingon axial series or on PET/CT. IMPRESSION: 1. 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 2. Tumor likely involves the lesser wing of the left sphenoid bone. 3. No lateral retropharyngeal or visualized cervical adenopathy. Lorena Hdez APRN [facility] MRI ORDERAB LES * PETCT Contrast Enhanced Initial Treatment Strategy (11/27/2022 3:57 PM TRUCK SHOP MECHANIC) Anatomical Region Laterality Modality Whole Body Positron Emissio n Tomography (PET) 11/30/2022 8:31 AM TRUCK SHOP MECHANIC Impressions 11/30/2022 8:38 AM TRUCK SHOP MECHANIC Subtle activity associated with subtle asymmetric fullness in posterior left nasal pharynx is compatible with reported primary tumor. No suspicious activity to suggest regional jeremiah or distant metastases. 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 The CT portion of the examination was performed with intravenous contrast. SUV measurements are reported as maximum SUV based on body weight unless otherwise specified. There are technical differences which may result in increased scan to scan variation of semiquantitative measurements. Findings: Head and Neck: There is subtle asymmetric fullness with subtle activity in region of posterior left nasal pharynx with SUV 5 on image 46 No focal active or suspicious cervical lymphadenopathy. No focal abnormal activity within the brain. Chest: No focal hypermetabolic or suspicious pulmonary parenchymal abnormalities. No focal hypermetabolic or suspicious mediastinal or axillary lymphadenopathy. Abdomen and Pelvis: No focal abnormal activity with diffuse fatty change noted incidentally. Prior cholecystectomy. Adrenals, kidneys, pancreas, and spleen are unremarkable on contrast CT images and without focal suspicious activity on corresponding PET images. No hypermetabolic or suspicious abdominal or pelvic lymphadenopathy. Musculoskeletal: No focal hypermetabolic or suspicious lytic or blastic osseous lesions. Procedure Note Michael Herrera MD - 11/30/2022 FULL RESULT: Examination: Contrast-Enhanced FDG PET/CT, 11/27/2022 3:57 PM Clinical History: 57-year-old female with recently diagnosed adenoidcystic carcinoma of the nasopharynx Indication: Staging/initial treatment strategy Comparison: No prior imaging studies are available for comparison at timedictation Technique: F-18 fluorodeoxyglucose (FDG) 9.2 mCi was administeredintravenously via left antecubital fossa vein IV. To allow fordistribution and uptake of radiotracer, the patient was asked to restquietly for approximately 76 minutes. PET/CT imaging was performed fromthe thoracic inlet to proximal thighs with additional images from vertexto below aortic arch. CT scanning was done for attenuation correction,image registration, and diagnosis with scan parameters optimized tominimize radiation exposure to the patient. The CT portion of theexamination was performed with intravenous contrast. SUV measurements arereported as maximum SUV based on body weight unless otherwise specified.There are technical differences which may result in increased scan to scanvariation of semiquantitative measurements. Findings: Head and Neck: There is subtle asymmetric fullness with subtle activity inregion of posterior left nasal pharynx with SUV 5 on image 46 No focal active or suspicious cervical lymphadenopathy. No focal abnormalactivity within the brain. Chest: No focal hypermetabolic or suspicious pulmonary parenchymalabnormalities. No focal hypermetabolic or suspicious mediastinal oraxillary lymphadenopathy. Abdomen and Pelvis: No focal abnormal activity with diffuse fatty changenoted incidentally. Prior cholecystectomy. Adrenals, kidneys, pancreas,and spleen are unremarkable on contrast CT images and without focalsuspicious activity on corresponding PET images. No hypermetabolic orsuspicious abdominal or pelvic lymphadenopathy. Musculoskeletal: No focal hypermetabolic or suspicious lytic or blasticosseous lesions. IMPRESSION: Subtle activity associated with subtle asymmetric fullness in posteriorleft nasal pharynx is compatible with reported primary tumor. Nosuspicious activity to suggest regional jeremiah or distant metastases. Lindy GALE IMG PETCT LUIS ENRIQUE YUN Blood Control (11/26/2022 1:07 PM TRUCK SHOP MECHANIC) [facility] Molecular Diagnostics (Received) Yes [facility] Blood 11/26/2022 1:07 PM TRUCK SHOP MECHANIC 11/27/2022 9:13 AM TRUCK SHOP MECHANIC Lorena Hdez BUSINESS COMMUNICATIONS INSTRUCTOR MDA IP [facility] JESSICA BRYANG IF ORDERABLES [facility] Unless otherwise noted, all lab tests performed by: Division of Pathology and Laboratory Medicine [address] [place] [phone] * (ABNORMAL) Vitamin D 25OH (11/26/2022 1:07 PM TRUCK SHOP MECHANIC) [facility] Vitamin D 25 OH 21(L) 30 - 100 ng/mL [facility] [facility] Comment: Reference Range: Deficiency: <10 ng/mL Insufficiency: 10-29 ng/mL Sufficiency: 30-100 ng/mL Potential toxicity: >100 ng/mL Testing performed at [facility], [address] [place] [id number] Blood 11/26/2022 1:07 PM TRUCK SHOP MECHANIC 11/26/2022 1:19 PM TRUCK SHOP MECHANIC Lorena Hdez APRN LAB BLOOD ORDER [facility] [address], [facility] [address] [place] [address] * (ABNORMAL) Uric Acid (11/26/2022 1:07 PM TRUCK SHOP MECHANIC) Uric Acid 6.5(H) 2.4 - 5.7 mg/dL [facility] Comment:Testing performed at [facility], [address] [place] [address], [place] [address] Blood 11/26/2022 1:07 PM TRUCK SHOP MECHANIC 11/26/2022 1:19 PM TRUCK SHOP MECHANIC Lorena Hdez BUSINESS COMMUNICATIONS INSTRUCTOR LAB BLOOD ORDER [facility] Performing Organization Address City/[facility]/ZIP Co de Phone Number [address], [facility] [address] [place] [address] * [id number] Fusion Material Request (11/26/2022 12:43 PM TRUCK SHOP MECHANIC) Pathologist [facility] [place] Archived Material The test is to be performed on tissue from case [id number]. The case report, slides, and blocks for the cited accession were retrieved from archives. The pathologist examined the candidate H&E slide and selected the block appropriate to the specifications of the ordered molecular analysis. Unstained slides and H&E slide were prepared and forwarded to [facility] where the subject molecular test will be performed. Results will be reported separately. 12/04/2022 8:01 AM TRUCK SHOP MECHANIC [facility] Pathologist Signature 12/04/2022 8:01 AM TRUCK SHOP MECHANIC [facility] Tissue specimen (specimen) 11/26/2022 12:43 PM TRUCK SHOP MECHANIC 11/26/2022 12:43 PM TRUCK SHOP MECHANIC Lorena Hdez APRN [facility] IP AP BIOMA RKERS [facility] [address] [place] [address], * NTRK2 Fusion Material Request (11/26/2022 12:43 PM TRUCK SHOP MECHANIC) Archived Material The test is to be performed on tissue from case [id number]. The case report, slides, and blocks for the cited accession were retrieved from archives. The pathologist examined the candidate H&E slide and selected the block appropriate to the specifications of the ordered molecular analysis. Unstained slides and H&E slide were prepared and forwarded to [facility] where the subject molecular test will be performed. Results will be reported separately. 12/04/2022 8:01 AM TRUCK SHOP MECHANIC [facility] AP Promosome Pathologist Signature 12/04/2022 8:01 AM TRUCK SHOP MECHANIC [facility] Tissue specimen (specimen) 11/26/2022 12:43 PM TRUCK SHOP MECHANIC 11/26/2022 12:43 PM TRUCK SHOP MECHANIC Lorena Hdez APRN [facility] IP AP [employer] Performing Organization Address [facility] de Phone Number [facility] [place] [address], * NTRK1 Fusion Material Request (11/26/2022 12:43 PM TRUCK SHOP MECHANIC) Pathologist [facility] [place] Archived Material The test is to be performed on tissue from case [id number]. The case report, slides, and blocks for the cited accession were retrieved from archives. The pathologist examined the candidate H&E slide and selected the block appropriate to the specifications of the ordered molecular analysis. Unstained slides and H&E slide were prepared and forwarded to [facility] where the subject molecular test will be performed. Results will be reported separately. 12/04/2022 8:01 AM TRUCK SHOP MECHANIC [facility] AP Promosome Pathologist Signature 12/04/2022 8:01 AM TRUCK SHOP MECHANIC [facility] Tissue specimen (specimen) 11/26/2022 12:43 PM TRUCK SHOP MECHANIC 11/26/2022 12:43 PM TRUCK SHOP MECHANIC Lorena Hdez APRN [facility] IP AP BIOMA RKERS Performing Organization Address City/[facility] Co de Phone Number [address] [address], [place] * MD ERBB2 Mutation Analysis Material Request (11/26/2022 12:43 PM TRUCK SHOP MECHANIC) Archived Material The test is to be performed on tissue from case [id number]. The case report, slides, and blocks for the cited accession were retrieved from archives. The pathologist examined the candidate H&E slide and selected the block appropriate to the specifications of the ordered molecular analysis. Unstained slides and H&E slide were prepared and forwarded to [facility] where the subject molecular test will be performed. Results will be reported separately. 12/04/2022 8:01 AM TRUCK SHOP MECHANIC [facility] Promosome Pathologist Signature 12/04/2022 8:01 AM TRUCK SHOP MECHANIC [facility] Tissue specimen (specimen) 11/26/2022 12:43 PM TRUCK SHOP MECHANIC 11/26/2022 12:43 PM TRUCK SHOP MECHANIC Lorena Kayla Hdez BUSINESS COMMUNICATIONS INSTRUCTOR [facility] BIOMA RKERS [address] [address], [place] * MD ALK Mutation Analysis Material Request (11/26/2022 12:43 PM TRUCK SHOP MECHANIC) Pathologist [facility] [place] Archived Material The test is to be performed on tissue from case [id number]. The case report, slides, and blocks for the cited accession were retrieved from archives. The pathologist examined the candidate H&E slide and selected the block appropriate to the specifications of the ordered molecular analysis. Unstained slides and H&E slide were prepared and forwarded to [facility] where the subject molecular test will be performed. Results will be reported separately. 12/04/2022 8:02 AM TRUCK SHOP MECHANIC [facility] Promosome Pathologist Signature 12/04/2022 8:02 AM TRUCK SHOP MECHANIC [facility] Promosome Tissue specimen (specimen) 11/26/2022 12:43 PM TRUCK SHOP MECHANIC 11/26/2022 12:43 PM TRUCK SHOP MECHANIC Lorena Hdez APRN [facility] AP BIOMA RKERS Performing Organization Address [facility] Co de Phone Number [address] [address], [place] * MTOR Mutation Material Request (11/26/2022 12:43 PM TRUCK SHOP MECHANIC) Archived Material The test is to be performed on tissue from case [id number]. The case report, slides, and blocks for the cited accession were retrieved from archives. The pathologist examined the candidate H&E slide and selected the block appropriate to the specifications of the ordered molecular analysis. Unstained slides and H&E slide were prepared and forwarded to [facility] where the subject molecular test will be performed. Results will be reported separately. 12/04/2022 8:01 AM TRUCK SHOP MECHANIC [facility] Pathologist Signature 12/04/2022 8:01 AM TRUCK SHOP MECHANIC [facility] Tissue specimen (specimen) 11/26/2022 12:43 PM TRUCK SHOP MECHANIC 11/26/2022 12:43 PM TRUCK SHOP MECHANIC Lorena Hdez BORIS [facility] AP BIOMA RKERS Performing Organization Address [facility] Co de Phone Number [address] [address], [place] * PTEN Mutation Material Request (11/26/2022 12:43 PM TRUCK SHOP MECHANIC) Archived Material The test is to be performed on tissue from case [id number]. The case report, slides, and blocks for the cited accession were retrieved from archives. The pathologist examined the candidate H&E slide and selected the block appropriate to the specifications of the ordered molecular analysis. Unstained slides and H&E slide were prepared and forwarded to [facility] where the subject molecular test will be performed. Results will be reported separately. 12/04/2022 8:02 AM TRUCK SHOP MECHANIC [facility] Pathologist Signature 12/04/2022 8:02 AM TRUCK SHOP MECHANIC [facility] Tissue specimen (specimen) 11/26/2022 12:43 PM TRUCK SHOP MECHANIC 11/26/2022 12:43 PM TRUCK SHOP MECHANIC Lorena Hdez APRN [facility] IP AP BIOMA RKERS Performing Organization Address [facility] de Phone Number [facility] [address] [address], [place] * EGFR Mutation Material Request (11/26/2022 12:43 PM TRUCK SHOP MECHANIC) Archived Material The test is to be performed on tissue from case [id number]. The case report, slides, and blocks for the cited accession were retrieved from archives. The pathologist examined the candidate H&E slide and selected the block appropriate to the specifications of the ordered molecular analysis. Unstained slides and H&E slide were prepared and forwarded to [facility] where the subject molecular test will be performed. Results will be reported separately. 12/04/2022 8:02 AM TRUCK SHOP MECHANIC [facility] Pathologist Signature 12/04/2022 8:02 AM TRUCK SHOP MECHANIC [facility] Tissue specimen (specimen) 11/26/2022 12:43 PM TRUCK SHOP MECHANIC 11/26/2022 12:43 PM TRUCK SHOP MECHANIC Lorena Hdez APRN [facility] IP AP BIOMA RKERS Performing Organization Address [facility] de Phone Number [facility] [address] [address], [place] * IHC PD-L1 Material Request (11/26/2022 12:43 PM TRUCK SHOP MECHANIC) Tissue specimen (specimen) 11/26/2022 12:43 PM TRUCK SHOP MECHANIC 11/26/2022 12:43 PM TRUCK SHOP MECHANIC Lorena Hdez APRN [facility] IP AP BIOMA RKERS Performing Organization Address [facility]/ZIP Co de Phone Number [facility] [address] [address], [place] * IHC HER2/arcenio Material Request (11/26/2022 12:43 PM TRUCK SHOP MECHANIC) Tissue specimen (specimen) 11/26/2022 12:43 PM TRUCK SHOP MECHANIC 11/26/2022 12:43 PM TRUCK SHOP MECHANIC Lorena Hdez BUSINESS COMMUNICATIONS INSTRUCTOR [facility] IP AP BIOMA RKERS [facility] [address] [address], [place] * Testosterone Level (11/17/2022 12:11 PM TRUCK SHOP MECHANIC) Testoster Tot <3 3 - 41 ng/dL [place] Comment: Reference Ranges: Male: Age 20 - 49 249 - 836 Age >=50 193 - 740 Female: Age 20 - 49 8 - 48 Age >=50 3 - 41 Testing performed at [facility], [address] [place] [address] Blood 11/17/2022 12:1 1 PM TRUCK SHOP MECHANIC 11/17/2022 12:12 PM TRUCK SHOP MECHANIC Red Berman BUSINESS COMMUNICATIONS INSTRUCTOR LAB BLOOD ORDERA BLES Performing Organization Address City/[facility] Co de Phone Number [address], [facility] [address] [place] [phone] * Pathology Outside Interpretation (10/16/2022) Materials Received Accession#, Stained, Block, Unstained Collected Received A. [id number], 7 SS, 1 BLOCKS, 0 USS 10/16/2022 11/24/2022 11/27/2022 5:08 PM TRUCK SHOP MECHANIC [facility] Addendum 1 At the request of th e treating physician the following studies were performed and interpreted at [facility]. The tumor cells are negative for Her2 (0%) by immunohistochemical analysis. The tumor cells are positive for cleaved NOTCH1 (< 70% ) by immunohistochemical analysis. PD-L1 (Clone 22C3, D[employer] PharmDx) Combined Positive Score (CPS): is less than 1 Assay Information: This assay is manufactured by [employer] and uses a monoclonal anti-PD-L1, clone 22C3. It is performed on formalin-fixed paraffin-embedded tissue using an [employer] Dako autostainer and polymer based detection kit, as specified by the cilnical scientist. It is approved for use as a passenger agent diagnostic for specific therapies on certain tumor types.Combined positive score (CPS) is calculated as the number of PD-L1 staining cells (viable invasive tumor cells showing membranous staining of any intensity; lymphocytes and macrophages in the tumor area showing membranous or cytoplasmic staining of any intensity) divided by the total number of viable invasive tumor cells, multiplied by 100. The maximum score is defined as CPS 100. 11/27/2022 5:08 PM [facility] Addendum electronically signed by Ashleigh Duarte MD on 11/27/2022 at 5:08 PM Diagnosis Outside ([id number], 7 SS, 1 BLOCKS, 0 USS, collected on 10/16/2022): Nasopharynx, biopsy: ADENOID CYSTIC CARCINOMA, CRIBRIFORM TYPE see comment EARL/SALEEM 11/27/2022 5:08 PM [facility] [employer] [facility] Comment Submitted immunohistochemical stains performed by referring institution show that CK7 highlights the epithelial cells, and p63 and p40 highlights the myoepithelial cells. The morphology and immunophenotype is supportive of this classification. 11/27/2022 5:08 PM [facility] Biomarker Block(s) Tumor block: [id number] 11/27/2022 5:08 PM [facility] Disclaimer "Some tests reported here may have been developed and performance characteristics determined by [facility]. These tests have not been specifically cleared or approved by the U.S. Food and Drug Administration. If applicable, controls were reviewed and showed appropriate reactivity." 11/27/2022 5:08 PM [facility] Tissue specimen (specimen) 10/16/2022 11/24/2022 3:02 PM TRUCK SHOP MECHANIC Alexa Alvarez MD LAB PATHOLOGY ORDERA JOANNE [facility] [address] [place] [id number], after 10/06/2022 Advance Directives Latest Code Status on File Code Status Date Activated Date Inactivated Comments Full Code 02/06/2023 1:33 AM 02/16/2023 6:41 PM Code Status History Code Status Date Activated Date Inactivated Comments Full Code 01/26/2023 5:50 PM 02/01/2023 8:34 PM Full Code 01/11/2023 10:19 PM 01/18/2023 9:39 PM Full Code 12/09/2022 10:42 PM 12/15/2022 9:30 PM Care Teams Shake Sawyer Relationship Specialty Start Date End Date Bina Obando MD [address] [place] [phone] PCP - External Referring Otolaryngology 11/12/22 Kenya Agarwal MD [address] [place] [id number] PCP - General Head and Neck Surgery 11/12/22 Trent Irving MD [facility] [place] [address] Family Practice 11/26/22 Randall Sheriff MD [address] [place] [address] [facility] 11/26/22 Vignesh Waddell MD [address] [place] [address] Pulmonary Medicine 11/26/22 [place] [address] [place] [address] Cardiology 11/26/22 Tapan Harper MD [address] [place] [address] Gastroenterology 11/26/22 Rafael Rosas MD [address] [place] [phone] Ophthalmology 11/26/22 Suzanne Mcgrath MD [address] [place] [address] Consulting Physician Ophthalmology 12/29/22 Winter Luu MD [address] [place] [address] Consulting Physician Radiation Oncology 11/26/22 Vaibhav Rosario MD [address] [place] [address] Consulting Physician Medical Oncology 11/26/22 Rogerio Kramer MD [address] [place] [address] Consulting Physician Pain Management 01/20/23 Rosana Harkins MD [address] [place] [address] Consulting Physician Hematology and Oncology 03/31/23 No Andrade MD [address] [place] [address] Consulting Physician Endocrinology 09/01/23
[2023-10-06 15:59] LABS: Absolute Lymphocytes (CBC) 2.1 K/uL (0.7-4.9); Hematocrit 48.5 % (36.0-45.0); MPV 9.6 fL (7.6-11.3); Platelets 259 thou/uL (152-406); RBC Red Blood Cell Count 5.27 M/uL (3.86-4.86)
[2023-10-06 16:34] LABS: Albumin 3.4 g/dL (3.4-5.0); Bilirubin Total 0.5 mg/dL (0.2-1.0); Potassium 4.3 mEq/L (3.5-5.1); Protein, Total 7.8 g/dL (6.4-8.2)
[2023-10-06] MEDS ORDERED: NA CHLORIDE 0.9% 250 ML ONE ×2 (17:09→18:18)
[2023-10-06] MEDS ORDERED: ONDANSETRON 4 MG/2 ML VIAL ONE ×2 (17:09→18:18)
[2023-10-06] MEDS ORDERED: FAMOTIDINE 20 MG/2 ML VIAL IV ONE (17:09)
--- NOTE | 2023-10-06 17:47 | RAD REPORT ---
EXAM DESCRIPTION: CTAbdomen Pelvis W Contrast - 10/06/2023 5:36 pm CLINICAL HISTORY: Abdominal pain. Abd pain;Nausea / vomiting COMPARISON: Abdomen Pelvis W Contrast dated 09/26/2023; Abdomen Pelvis W Contrast dated 3; Abdomen Pelvis W Contrast dated 05/18/2023; Abdomen Pelvis W Contrast dated 04/13/2023 TECHNIQUE: Biphasic CT imaging of the abdomen and pelvis was performed with 100 ml non-ionic IV cont rast. All CT scans are performed using dose optimization technique as appropriate and may include automated exposure control or mA/KV adjustment according to patient size. FINDINGS: The lung bases are clear. The liver demonstrates mild fatty infiltration. Liver size is mildly prominent. Cholecystectomy. Sple en, pancreas, adrenal glands and kidneys are within normal limits. Postsurgical changes involve the s tomach. Prior gastric bypass noted. No bowel obstruction, free air, free fluid or abscess. Moderate retained stool throughout the colon. Evidence of previous appendectomy. No evidence of significant lymphadenopathy. Mild lumbar degenerative changes. IMPRESSION: No acute intra-abdominal or pelvic finding. Postsurgical changes of gastric bypass procedure noted. No bowel obstruction. Mild fatty liver with prominent hepatic size
--- NOTE | 2023-10-06 17:55 | EDPHYS ---
Physician Documentation [facility] Name: Maria De Jesus Acosta Age: 58 yrs Sex: Female : 1965 Arrival Date: 10/06/2023 Time: 15:15 Bed 9 Private MD: ED Physician Juanito Santillan HPI: 10/06 16:27 This 58 yrs old Female presents to ER via EMS with complaints of Abdominal rn Pain. 16:27 The patient presents with abdominal pain in the upper abdomen. Onset: The rn symptoms/episode began/occurred at an unknown time. The symptoms do not radiate. Associated signs and symptoms: Pertinent positives: nausea and vomiting, Pertinent negatives: blood in stools, chest pain, fever. The symptoms are described as achy, crampy. Modifying factors: The symptoms are alleviated by nothing, the symptoms are aggravated by nothing. Severity of pain: At its worst the pain was moderate in the emergency department the pain is unchanged. The patient has experienced similar episodes in the past, chronically. The patient has been recently seen by a physician:. Patient reports mid and upper abdominal pain, unclear onset. Recent admission in [place] for identical symptoms, states admitted for a few days with pain and nausea medication and sent home. No intervention at that time. Had a gastric bypass 2 months ago. No blood in stool. Patient states history of gastroparesis and chronic abdominal problems. Denies any significantly new symptoms.. Historical: - Allergies: 15:34 Doxycycline; db 15:34 kiwi; db 15:34 metoclopramide HCl; db 15:34 orange juice; db 15:34 Reglan; db - PMHx: 15:34 Asthma; COPD; Crohn's; Diabetes - NIDDM; CHF; Hypertension; Nasal cancer; db - PSHx: 15:34 Appendectomy; Cholecystectomy; Gastric Bypass (er); Ligation of fallopian tube; partial db hysterectomy; Shoulder; - Immunization history:: Adult Immunizations unknown. - Social history:: Smoking status: Patient denies any tobacco usage or history of. - Family history:: not pertinent. - Hospitalizations: : No recent hospitalization is reported. ROS: 16:27 Constitutional: Negative for fever, chills, and weight loss, Cardiovascular: Negative rn for chest pain, palpitations, and edema, Respiratory: Negative for shortness of breath, cough, wheezing, and pleuritic chest pain, Abdomen/GI: Positive for abdominal pain/nausea/vomiting Back: Negative for injury and pain, MS/Extremity: Negative for injury and deformity, Skin: Negative for injury, rash, and discoloration, Neuro: Negative for headache Exam: 16:27 Constitutional: Morbidly obese female, no acute distress Cardiovascular: Regular rate rn and rhythm. No pulse deficits. Respiratory: No increased work of breathing, no retractions or nasal flaring. Abdomen/GI: Soft, mid abdominal tenderness without guarding. No drains or open wounds. Neuro: Awake and alert, GCS 15, oriented to person, place, time, and situation. Vital Signs: 15:33 BP 116 / 82; Pulse 97; Resp 18; Temp 98.7(O); Pulse Ox 97% ; Weight 129.73 kg; Height 5 db ft. 3 in. ; Pain 7/10; 18:55 BP 117 / 81; Pulse 94; Resp 18; Pulse Ox 97% ; cp4 15:33 Body Mass Index 50.66 (129.73 kg, 160.02 cm) db 15:33 Pain Scale: Adult db MDM: 15:27 Patient medically screened. rn 17:52 Differential diagnosis: bowel obstruction, diverticulitis, gastritis, gastroesophageal rn reflux disease, non-specific abd pain, pancreatitis, Peptic Ulcer Disease, Ureterolithiasis, Chronic abdominal pain, viral illness, enteritis, colitis, gastritis. Data reviewed: vital signs, nurses notes, lab test result(s), radiologic studies, CT scan, and as a result, I will discharge patient. Care significantly affected by the following chronic conditions: Diabetes, Chronic Obstructive Pulmonary Disease, Obesity, Chronic abdominal pain. Counseling: I had a detailed discussion with the patient and/or guardian regarding the historical points, exam findings, and any diagnostic results supporting the discharge/admit diagnosis, lab results, radiology results, the need for outpatient follow up, to return to the emergency department if symptoms worsen or persist or if there are any questions or concerns that arise at home. Special discussion: Based on the patient's Hx, exam, and Dx evaluation, there is no indication for emergent surgery or inpatient Tx. It is understood by the patient/guardian that if the Sx's persist or worsen they need to return immediately for re-evaluation. I discussed with the patient/guardian in detail that at this point there is no indication for admission to the hospital. It is understood, however, that if the symptoms persist or worsen the patient needs to return immediately for re-evaluation. Based on the history and exam findings, there is no indication for further emergent testing or inpatient evaluation. I discussed with the patient/guardian the need to see the illuminating engineer for further evaluation of the symptoms. I discussed with the patient/guardian the need to see the primary care provider for further evaluation of the symptoms. ED course: No acute findings and workup. No indication for emergent admission or transfer at this point. Patient volume contracted, given more fluids. No vomiting since arrival here. Still little nausea so we will give Zofran and some pain medication. Will discharge home with return precautions.. 10/06 15:40 Order name: CBC with Diff; Complete Time: 16:29 rn 10/06 15:40 Order name: CMP; Complete Time: 16:38 rn 10/06 15:40 Order name: Lipase; Complete Time: 16:38 rn 10/06 15:40 Order name: CT Abd/Pelvis - IV Contrast Only; Complete Time: 17:48 rn 10/06 15:40 Order name: IV Saline Lock; Complete Time: 15:53 rn 10/06 15:40 Order name: Labs collected and sent; Complete Time: 15:53 rn Administered Medications: 16:29 CANCELLED (Duplicate Order): ns 0.9% 1000 ml IV at 1 bolus Per protocol; 1000 mL bolus rn 16:59 Drug: NS 0.9% IV 250 ml IV at bolus once Route: IV; Rate: bolus; Site: left antecubital;cp4 18:09 Follow up: Response: No adverse reaction; IV Status: Completed infusion cp4 17:00 Drug: Famotidine IVP 20 mg IVP once; dilute with 10 mL 0.9% NaCl; give over 2 minutes cp4 Route: IVP; Site: left antecubital; 18:10 Follow up: Response: No adverse reaction cp4 17:00 Drug: Ondansetron IVP 4 mg IVP once; over 2 minutes Route: IVP; Site: left antecubital; cp4 18:10 Follow up: Response: No adverse reaction cp4 18:09 Drug: morphine IVP or IV 4 mg IVP once over 4 mins Route: IVP; Infused Over: 4 mins; cp4 Site: left antecubital; 18:10 Follow up: Response: No adverse reaction cp4 18:09 Drug: Ondansetron IVP 4 mg IVP once; over 2 minutes Route: IVP; Site: left antecubital; cp4 18:10 Follow up: Response: No adverse reaction cp4 18:09 Drug: NS 0.9% IV 250 ml IV at bolus once Route: IV; Rate: bolus; Site: left antecubital;cp4 18:52 Follow up: Response: No adverse reaction; IV Status: Completed infusion cp4 Disposition Summary: 10/06/23 17:54 Discharge Ordered Notes: Location: Home rn Problem: chronic rn Symptoms: have improved rn Condition: Stable rn Diagnosis - Abdominal pain, unspecified rn - Nausea rn - Dehydration rn Followup: rn - With: Private Physician - When: As needed - Reason: Recheck today's complaints, Re-evaluation by your physician Discharge Instructions: - Discharge Summary Sheet rn - Abdominal Pain, Adult rn - Dehydration, Adult rn - Nausea, Adult rn Forms: - Medication Reconciliation Form rn - Thank You Letter rn - Antibiotic product management internship - Prescription Opioid Use rn - Patient Portal Instructions rn - Leadership Thank You Letter rn Signatures: Dispatcher [employer] Juanito Sharp MD MD rn Benton, Danielle RN Daniela Brown cp4 Corrections: (The following items were deleted from the chart) 16:29 15:40 NS 0.9% IV 1000 ml IV at 1 bolus Per protocol; 1000 mL bolus ordered. rn rn 16:30 16:27 Constitutional: Morbidly obese female, no acute distress rn rn
--- NOTE | 2023-10-06 17:55 | ER ---
Nurse's Notes [facility] Name: Maria De Jesus Acosta Age: 58 yrs Sex: Female : 1965 Arrival Date: 10/06/2023 Time: 15:15 Bed 9 Private MD: Diagnosis: Abdominal pain, unspecified;Nausea;Dehydration Presentation: 10/06 15:33 Chief complaint: Patient states: PATIENT CAME BY EMS TODAY WITH N/V STARTED YESTERDAY. db STATES THIS AM HAD N/V TODAY. HX GASTRIC BYPASS 2 MONTHS AGO. RECENTLY SEEN IN [place]. Coronavirus screen: Vaccine status: Patient reports receiving the 2nd dose of the covid vaccine. Client denies travel out of the [place] in the last 14 days. At this time, the client does not indicate any symptoms associated with coronavirus-19. Ebola Screen: Patient negative for fever greater than or equal to 101.5 degrees Fahrenheit, and additional compatible Ebola Virus Disease symptoms Patient denies exposure to infectious person. Patient denies travel to an Ebola-affected area in the 21 days before illness onset. No symptoms or risks identified at this time. Initial Sepsis Screen: Does the patient meet any 2 criteria? No. Patient's initial sepsis screen is negative. Does the patient have a suspected source of infection? No. Patient's initial sepsis screen is negative. Risk Assessment: Do you want to hurt yourself or someone else? Patient reports no desire to harm self or others. Onset of symptoms was October 05, 2023. 15:33 Method Of Arrival: EMS: [facility] db 15:33 Acuity: EMERALD 3 db Triage Assessment: 15:34 General: Appears in no apparent distress. uncomfortable, Behavior is calm, cooperative. db Pain: Complains of pain in abdomen. Neuro: Level of Consciousness is awake, alert, obeys commands, Oriented to person, place, time, situation. GI: Abdomen is distended, obese. Historical: - Allergies: 15:34 Doxycycline; db 15:34 kiwi; db 15:34 metoclopramide HCl; db 15:34 orange juice; db 15:34 Reglan; db - PMHx: 15:34 Asthma; COPD; Crohn's; Diabetes - NIDDM; CHF; Hypertension; Nasal cancer; db - PSHx: 15:34 Appendectomy; Cholecystectomy; Gastric Bypass (er); Ligation of fallopian tube; partial db hysterectomy; Shoulder; - Immunization history:: Adult Immunizations unknown. - Social history:: Smoking status: Patient denies any tobacco usage or history of. - Family history:: not pertinent. - Hospitalizations: : No recent hospitalization is reported. Screenin:52 [facility] ED Fall Risk Assessment (Adult) History of falling in the last 3 months, cp4 including since admission No falls in past 3 months (0 pts) Confusion or Disorientation No (0 pts) Intoxicated or Sedated No (0 pts) Impaired Gait No (0 pts) Mobility Assist Device Used No (0 pt) Altered Elimination No (0 pt) Score/Fall Risk Level 0 - 2 = Low Risk Oriented to surroundings, Maintained a safe environment, Educated pt \T\ family on fall prevention, incl call for assistance when getting out of bed, Hourly rounding (assess needs \T\ fall precautionary measures) done. Abuse screen: Denies threats or abuse. Nutritional screening: No deficits noted. Tuberculosis screening: No symptoms or risk factors identified. Assessment: 15:37 Reassessment: PT EVALUATED IN TRIAGE BY DR. SANTILLAN. db 18:52 General: Appears in no apparent distress. Behavior is calm, cooperative, appropriate cp4 for age. 18:54 GI: Bowel sounds present X 4 quads. Abd is soft and non tender X 4 quads. cp4 Vital Signs: 15:33 BP 116 / 82; Pulse 97; Resp 18; Temp 98.7(O); Pulse Ox 97% ; Weight 129.73 kg; Height 5 db ft. 3 in. ; Pain 7/10; 18:55 BP 117 / 81; Pulse 94; Resp 18; Pulse Ox 97% ; cp4 15:33 Body Mass Index 50.66 (129.73 kg, 160.02 cm) db 15:33 Pain Scale: Adult db ED Course: 15:17 Patient arrived in ED. rg4 15:27 Juanito Santillan MD is Attending Physician. rn 15:34 Triage completed. db 15:37 Arm band placed on right wrist. db 15:53 CBC with Diff Sent. bc6 15:53 CMP Sent. bc6 15:53 Lipase Sent. bc6 15:53 Inserted saline lock: 20 gauge in left antecubital area, using aseptic technique. Blood bc6 collected. 16:47 Daniela Kolb is Primary Nurse. cp4 17:38 CT Abd/Pelvis - IV Contrast Only In Process Unspecified. EDMS 18:52 Bed in low position. Call light in reach. Side rails up X 1. cp4 18:52 Provided Education on: abdominal pain, dehydration. cp4 18:52 No provider procedures requiring assistance completed. intact, bleeding controlled, No cp4 redness/swelling at site. Pressure dressing applied. Administered Medications: 16:29 CANCELLED (Duplicate Order): ns 0.9% 1000 ml IV at 1 bolus Per protocol; 1000 mL bolus rn 16:59 Drug: NS 0.9% IV 250 ml IV at bolus once Route: IV; Rate: bolus; Site: left antecubital;cp4 18:09 Follow up: Response: No adverse reaction; IV Status: Completed infusion cp4 17:00 Drug: Famotidine IVP 20 mg IVP once; dilute with 10 mL 0.9% NaCl; give over 2 minutes cp4 Route: IVP; Site: left antecubital; 18:10 Follow up: Response: No adverse reaction cp4 17:00 Drug: Ondansetron IVP 4 mg IVP once; over 2 minutes Route: IVP; Site: left antecubital; cp4 18:10 Follow up: Response: No adverse reaction cp4 18:09 Drug: morphine IVP or IV 4 mg IVP once over 4 mins Route: IVP; Infused Over: 4 mins; cp4 Site: left antecubital; 18:10 Follow up: Response: No adverse reaction cp4 18:09 Drug: Ondansetron IVP 4 mg IVP once; over 2 minutes Route: IVP; Site: left antecubital; cp4 18:10 Follow up: Response: No adverse reaction cp4 18:09 Drug: NS 0.9% IV 250 ml IV at bolus once Route: IV; Rate: bolus; Site: left antecubital;cp4 18:52 Follow up: Response: No adverse reaction; IV Status: Completed infusion cp4 Medication: 18:52 VIS not applicable for this client. cp4 Outcome: 17:54 Discharge ordered by MD. rn 18:52 Discharged to home via wheelchair, cp4 18:52 Condition: stable 18:52 Discharge instructions given to patient, Instructed on discharge instructions, follow up and referral plans. Demonstrated understanding of instructions, follow-up care, 18:58 Patient left the ED. cp4 Signatures: Dispatcher [employer] EDJuanito Garza MD MD rn Garcia, Rubi rg4 Sonja Feliciano RN RN db [place], Breana bc6 Daniela Kolb cp4 Corrections: (The following items were deleted from the chart) 15:37 15:33 Chief complaint: Patient states: PATIENT CAME BY EMS TODAY WITH N/V STARTED db YESTERDAY. STATES THIS AM HAD N/V TODAY db
[2023-10-06] MEDS ORDERED: MORPHINE 4 MG/ML SYR ONE (18:18)
[2023-10-06 19:58] VITALS: TEMP 98.7; O2SAT 97
[2023-10-06 19:59] VITALS: BP 117/81
== END 2023-10-06 18:58 | disposition home or self-care (01) ==
LOC: ER 15:15
DX: R10.10 Upper abdominal pain, unspecified (principal); E86.0 Dehydration; R11.0 Nausea; I10 Essential (primary) hypertension; E11.9 Type 2 diabetes mellitus without complications; I50.9 Heart failure, unspecified; Z88.1 Allergy status to other antibiotic agents; Z88.8 Allergy status to other drugs, medicaments and biological substances; Z91.018 Allergy to other foods
CPT/HCPCS: 96365; 85025; 36415; 83690; 80053; 74177; 96375; 99284; 96366; Q9967; J2405 ×2; J7050 ×2

== ENCOUNTER 2023-10-14 13:40 | Emergency (ER) | payer OTHER ==
--- OUTSIDE RECORDS SUMMARY | 2023-10-14 13:50 | XMS REPORT | Clinical Summary ---
Author Name Unknown Organization [facility] Address [address] [place] [address] Care Team Providers Care Scale Balancer Name Role Phone Bina Obando MD Unavailable [phone] Kenya Agarwal MD Primary Care Provider [phone] Trent Irving MD Unavailable [phone] Randall Sheriff MD Unavailable Vignesh Waddell MD Unavailable [phone] Naa Miller MD Unavailable [phone] 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 another dose into the other nostril after 2 minutes if the patient does not respond 2 each 0 01/21/20 23 Active pen needle, diabetic (Easy Comfort Pen [place]) 31 gauge x 5/16" ndleIndications:T ype 2 [...] 7 days. After about 3 doses, notify automatic pilot mechanic if you are feeling well and we [...] 0 10/05/20 22 023 Discontinued(Re order) rizatriptan (MAXALT-DETECTIVE PRIVATE EYE) 5 mg disintegrating tablet 0 08/25/20 22 [...] thrombosis of basilic veins,Thrombosis of left cephalic vein,retirement use of anticoagulant Take 1 tablet (5 [...] TWICE DAILY 0 03/26/20 23 023 Discontinued(Ot her/Not Applicable) hydrocortisone (CORTEF) 10 mg tabletIndications :Abnormal cortisol [...] Active Problems Problem Noted Date Diagnosed Date retirement use of anticoagulant 03/31/2023 Acute thrombosis of [...] 01/12/2023 Mucositis due to antineoplastic therapy 01/12/20 Swallowing painful 01/11/2023 Current use of insulin [...] percent indicating poor diabetic control 01/12/2023 023 retirement current use of systemic steroid 12/10/2022 05/25/2023 Encounters Date Type Department Care Team Description 10/11/2023 Telephone [facility] [address] [place] [address], 6th [place] [address] No Andrade MD 10/08/2023 Orders Only [facility] - Surgical Oncology [address] [place] [address], 10th Floor, [place] [address] Red Berman APRN Adenoid cystic carcinoma of nasopharynx, NOS (Primary Dx) 09/21/2023 Telephone Endocrine Center [address] [place] [address], 6th [place] [address] No Andrade MD 09/13/2023 10:15 AM BREADING MACHINE TENDER Ancillary Procedure MD Bip[facility] Moses[address] [address] Lindy Montenegro PA Adenoid cystic carcinoma of nasopharynx, NOS 09/13/2023 Travel 09/10/2023 Telephone MD [facility] [place] - Radiation Oncology [address] [place] [address] Lindy Montenegro PA 08/30/2023 10:30 AM CDT Procedure visit Endocrine [address], [address] [place] [address] [place] [address] Eliseo Crum MD Type 2 diabetes mellitus with hyperglycemia (Primary Dx); Current use of insulin; Hemoglobin A1c greater than 10 percent indicating poor diabetic control; Alanine aminotransferase above reference range; Adult BMI 60-69.9 08/16/2023 Refill MD [facility] [address] [address] Lorena Hdez APRN Adenoid cystic carcinoma of nasopharynx, NOS 08/02/2023 Orders Only Endocrine Center [address] [place] [address], [facility] [place] [address] Marily Garcia APRN Type 2 diabetes mellitus without complication (Primary Dx) 07/28/2023 9:15 AM CDT Telemedicine Endocrine Center [facility] Main [facility], 6th [place] [address] No Andrade MD Type 2 diabetes mellitus without complication (Primary Dx); Neuropathy due to diabetes mellitus 07/22/2023 Documentation [facility] - Ophthalmology [address] [facility] Main Bldg, 9th [place] [address] Bridget Allison RN 07/20/2023 Refill Endocrine [place] [address] [facility] Main Bldg, 6th [place] [address] Marily Garcia APRN Abnormal cortisol 07/06/2023 Telephone Endocrine Center [address] [place] [address] Main dg, 6th [place] [address] Marily Garcia APRN 07/02/2023 Orders Only [facility] - Surgical Oncology [address] [place] [address] Main Bldg, 10th Floor, [place] [address] Red Berman APRN Adenocarcinoma of nasopharynx (Primary Dx) 06/22/2023 10:00 AM CDT Procedure visit Endocrine [address] Main Bldg, 6th [place] [address] No Andrade MD Type 2 diabetes mellitus with hyperglycemia (Primary Dx) 06/22/2023 Orders Only Endocrine Center [address] [place] [address] Main Bldg, 6th [place] [address] No Andrade MD Type 2 diabetes mellitus with hyperglycemia (Primary Dx) 06/21/2023 9:00 AM CDT Telephone Endocrine Center [address] [place] [address] Main Bldg, 6th [place] [address] Angela Lopes, Freya Corral RN 06/17/2023 1:00 PM CDT Treatment MD [facility] [place] - Speech Pathology [address] [place] [address] Monico Poole, Sheba Will, [facility]-IMPORT COORDINATOR Dysarthria (Primary Dx); Oropharyngeal dysphagia 06/17/2023 Documentation MD [place] [place] - Speech Pathology [address] [place] [address] [facility]-IMPORT COORDINATOR 06/17/2023 Documentation MD [facility] [place] - Speech Pathology [address] [place] [address] Sheba Olivarez CCC-IMPORT COORDINATOR 06/17/2023 Travel 06/16/2023 Telephone [facility] - Surgical Oncology [facility] Main [facility]ldg, 10th Floor, [place] [address] Red Berman, PRODUCTION ASSEMBLY OPERATOR 06/08/2023 Documentation Endocrine Center [facility] [place] [facility] Main Bldg, 6th [place] [address] Jenna Alvarado, RN 06/06/2023 Refill [facility] [address] [place] [address] Lorena Hdez, BORIS Adenoid cystic carcinoma of nasopharynx, NOS 05/26/2023 3:30 PM CDT Telemedicine Endocrine Center [facility] Main Bldg, 6th [place] [address] Marily Garcia, PRODUCTION ASSEMBLY OPERATOR Type 2 diabetes mellitus with hyperglycemia (Primary Dx); Abnormal cortisol 05/26/2023 Telephone Endocrine Center [facility] Main Bldg, 6th [place] [address] Marily Garcia APRN 05/26/2023 Telephone Endocrine Center [facility] Main Bldg, 6th [place] [address] Jenna Alvarado, RN 05/25/2023 Orders Only Endocrine Center [facility] [place] [facility] Main Bldg, 6th [place] [address] Marily Garcia, BORIS Type 2 diabetes mellitus with hyperglycemia (Primary Dx); Abnormal cortisol; Long-term (current) use of insulin 05/24/2023 11:00 AM CDT Telephone Endocrine Center [address] [place] [address] Main [facility], 6th [place] [address] No Andrade MD Needle, Pamela A, RN 05/21/2023 Documentation Endocrine Center [address] [place] [address] Main [facility], [facility] [place] [address] Akil Edwards, RN 05/21/2023 Documentation [facility] Center [address] [place] [address], 4th [place] [address] Randall Ferrer 05/18/2023 2:00 PM CDT Telephone Endocrine Center [address] [place] [address], [facility] [place] [address] No Andrade MD Needle, Pamela A, RN 05/11/2023 Telephone Endocrine Center [address] [place] [address], 6th [place] [address] aMrily Garcia APRN 05/02/2023 Telephone Endocrine Center [address] [place] [address], [facility] [place] [address] No Andrade MD 04/22/2023 3:40 PM CDT Follow-Up MD [facility] [place] - Thoracic Medicine [address] [place] [address] Vaibhav Rosario MD Adenoid cystic carcinoma of nasopharynx, NOS 04/22/2023 2:30 PM CDT Follow-Up MD [facility] [place] - Radiation Oncology [address] [place] [address] Winter Luu MD Adenoid cystic carcinoma of nasopharynx, NOS 04/22/2023 12:15 PM CDT Ancillary Procedure MD [facility] [address] [place] [address] Winter Luu MD Adenoid cystic carcinoma of nasopharynx, NOS 04/22/2023 Travel 04/09/2023 Refill [facility] [address] [place] [address], [facility] [place] [place] [address] Kyung Thomas RN Chronic pain 04/08/2023 Refill [facility] [address] [place] [address], [facility] [place] [place] [address] Miguel Gordon MD Chronic pain 03/31/2023 10:30 AM CDT Office Visit Internal Medicine Center - Hematology [address] [facility], 6th [place] [address] Rosana Harkins MD retirement use of anticoagulant (Primary Dx); Adenoid cystic carcinoma of nasopharynx, NOS; Deep venous thrombosis <Unspecified side>; Acute thrombosis of right axillary vein; Bilateral acute thrombosis of basilic veins; Thrombosis of left cephalic vein 03/31/2023 Travel 03/26/2023 Telephone MD [facility] [place] - Pain Medicine [address] [facility] [address] [place] [address] Viry Gaitan RN 03/23/2023 Telephone MD [facility] [place] - Radiation Oncology [address] [place] [address] Lindy Montenegro PA 03/23/2023 Orders Only MD [facility] [place] - Radiation Oncology [address] [place] [address] Lindy Montenegro PA 03/19/2023 1:30 PM CDT Telemedicine Endocrine Center [address] [place] [address], [facility] [place] [address] Angela Lopes APRN Type 2 diabetes mellitus without complication (Primary Dx) 03/18/2023 Telephone MD [facility] [address] [address] Vaibhav Rosario MD 03/16/2023 Orders Only [address] [address] Lorena Hdez APRN Adenoid cystic carcinoma of nasopharynx, NOS (Primary Dx) 03/12/2023 11:00 AM CDT Nutrition Clinical Nutrition For your Nutrition appointment location directions please call: Kenya Agarwal MD Martin, Cathy A, ADAM 03/11/2023 1:30 PM CDT Infusion [facility] - Infusion [address] [place] [address] 4th [place] [address] Lorena Hdez APRN Adenoid cystic carcinoma of nasopharynx, NOS (Primary Dx) 03/11/2023 11:20 AM CDT Follow-Up [address] [address] Lorena Hdez APRN Adenoid cystic carcinoma of nasopharynx, NOS (Primary Dx) 03/11/2023 Travel 03/09/[address] [address] Lorena Hdez, BORIS 03/04/2023 10:00 AM CDT Nutrition Clinical Nutrition For your Nutrition appointment location directions please call: Kenya Agarwal MD Martin, Cathy A, RD 03/04/2023 Orders Only MD [facility] [address] [address] Lorena Hdez, PRODUCTION ASSEMBLY OPERATOR 03/04/2023 Telephone [facility] - Thoracic Medicine [address] [place] [address] Tita Kwon RN 03/04/2023 Orders Only Pain Management Center [address] [place] [address], 4th [place] [address] Miguel Gordon MD Cancer associated pain (Primary Dx) 03/03/2023 11:40 AM CDT Follow-Up MD [facility] [place] - Thoracic Medicine [address] [place] [address] Vaibhav Rosario MD Adenoid cystic carcinoma of nasopharynx, NOS; Deep venous thrombosis <Unspecified side> 03/03/2023 Refill [facility] Management Center [address] [facility] Main [facility], 4th [place] [address] Cony Santillan APRN Chronic pain 03/03/2023 Travel 03/02/2023 Refill [facility] Management Center [address] [facility] Main [facility], 4th [place] [address] Cony Santillan APRN Chronic pain 02/26/2023 8:30 AM CDT Telemedicine MD [facility] [place] - Pain Medicine [address] [place] [address] Miguel Gordon MD Chronic pain (Primary Dx) 02/25/2023 10:00 AM CDT Nutrition Clinical Nutrition For your Nutrition appointment location directions please call: Kenya Agarwal MD Martin, Cathy A, ADAM 02/19/2023 Telephone MD [facility] [place] - Radiation Oncology [address] [place] [address] Anthony Lancaster RN 02/18/2023 10:00 AM CDT Nutrition Clinical Nutrition For your Nutrition appointment location directions please call: Kenya Agarwal MD Martin, Cathy A, RD 02/12/2023 4:15 PM CDT Clinical Support MD [facility] [place] - Radiation Oncology [address] [place] [address] Winter Luu MD 02/12/2023 7:00 AM CDT - 02/12/2023 11:59 PM CDT Hospital Encounter Radiation Treatment Center [address] [facility] Main [facility] [place] [address] Kenya Agarwal MD Discharge Disposition: Home 02/12/2023 Documentation Radiation Treatment Center [address] [place] [address] [facility] [place] [address] Winter Luu MD 02/12/2023 Orders Only MD [place] [place] - Radiation Oncology [address] [facility] 1st [place] [address] Winter Luu MD Adenocarcinoma of nasopharynx (Primary Dx); Adenoid cystic carcinoma of nasopharynx, NOS 02/12/2023 Orders Only [facility] Management Center [address] [place] [address], 4th [place] [address] Elvis Bruce MD Neoplasm related pain (acute) (chronic) (Primary Dx); Chronic pain 02/10/2023 Orders Only [facility] - Speech Pathology [address] [place] [address], 10th [place] [address] Charla Solis, [facility]-IMPORT COORDINATOR Oropharyngeal dysphagia (Primary Dx) 02/08/2023 6:00 AM CDT - 02/08/2023 11:59 PM CDT Hospital Encounter Radiation Treatment Center [address] [place] [address] [place] [address] Kenya Agarwal MD Discharge Disposition: Home 02/06/2023 Travel 02/05/2023 4:49 PM CDT - 02/16/2023 4:40 PM CDT Hospital Encounter MAIN [address] [place] [address] Deneen Guevara MD Wattana, Monica, MD Wechsler, Adriana, MD Viets, Jayne, MD Nguyen, Son V., Derrick Salinas MD Mohammed, MD Phyllis See Michelle, MD Intractable nausea and vomiting (Primary Dx); Type 2 diabetes mellitus with hyperglycemia; Swallowing painful; Dyspnea; Adenoid cystic carcinoma of nasopharynx, NOS; Chronic pain; Deep venous thrombosis <Unspecified side>; Type 2 diabetes mellitus without complication; Shortness of breath Discharge Disposition: Home 02/05/2023 Telephone MD [facility] - Thoracic Medicine [address] [place] [address] Vaibhav Rosario MD ... (The patient's son called that is not feeling well she feels cold and hyperventilating little bit, but the son said she doing okay but wants to know should she come see or just take her Emergency Room/) 02/04/2023 10:40 AM CDT Follow-Up MD [facility] - Thoracic Medicine [address] [place] [address] Vaibhav Rosario MD Adenoid cystic carcinoma of nasopharynx, NOS 02/04/2023 9:45 AM CDT Clinical Support MD [facility] - Radiation Oncology [address] [place] [address] Winter Luu MD Adenocarcinoma of nasopharynx (Primary Dx); Adenoid cystic carcinoma of nasopharynx, NOS 02/04/2023 Travel 02/03/2023 11:00 AM CDT Infusion MD [facility] - Infusion [address] [place] [address] Vaibhav Rosario MD Adenoid cystic carcinoma of nasopharynx, NOS (Primary Dx) 02/03/2023 Orders Only MD [facility] [address] [place] [address] Lorena Hdez APRN 02/03/2023 Travel 02/02/2023 Travel 01/31/2023 [facility] Internal Medicine Center [address] [facility] Main Bldg, 9th [place] [address] Glenda Madrigal, PRODUCTION ASSEMBLY OPERATOR Type 2 diabetes mellitus with hyperglycemia (Primary Dx) 01/28/2023 Telephone MD [facility] - Radiation Oncology [address] [place] [address] Felisa Castillo RN 01/28/2023 Orders Only [address] [address] Lorean Hdez, BORIS 01/26/2023 4:06 PM CDT - 02/01/2023 6:28 PM CDT Hospital Encounter MAIN P[address]B [address] [place] [address] Felisa Rashid MD Chaftari, Patrick, MD Viets, Jayne, MD Manzano, Joanna-Grace, MD Halm, Josiah, MD [...] Physical Therapy 01/26/2023 Travel 01/26/2023 Telephone MD [facility] [place] - Radiation Oncology [address] [place] [address] Felisa Castillo RN 01/26/2023 Telephone [facility] - Radiation Oncology [address] [place] [address] Felisa Castillo RN 01/25/2023 11:30 AM CDT Nutrition Clinical Nutrition For your Nutrition appointment location directions please call: Kenya Agarwal MD Martin, Cathy A, RD 01/25/2023 6:00 AM CDT - 01/25/2023 11:59 PM CDT Hospital Encounter Radiation Treatment Center [address] [place] [address] [place] [address] Kenya Agarwal MD Discharge Disposition: Home 01/25/2023 Telephone MD [facility] Radiation Oncology [address] [place] [address] Felisa Castillo RN 01/22/2023 10:30 AM CDT Nutrition Clinical Nutrition For your Nutrition appointment location directions please call: Kenya Agarwal MD Martin, Cathy A, ADAM 01/22/2023 Travel 01/21/2023 8:45 AM CDT Infusion MD [facility] - Infusion [address] [place] [address] 4th [place] [address] Lorena Hdez APRN Adenoid cystic carcinoma of nasopharynx, NOS (Primary Dx) 01/21/2023 8:00 AM CDT Follow-Up MD [facility] - Thoracic Medicine [address] [place] [address] Vaibhav Rosario MD Adenoid cystic carcinoma of nasopharynx, NOS (Primary Dx) 01/21/2023 Travel 01/20/2023 11:20 AM CDT Consult MD [facility] - Pain Medicine [address] [place] [address] Rogerio Kramer MD 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 (Primary Dx); Adenocarcinoma of nasopharynx; 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; Neoplasm related pain (acute) (chronic) 01/20/2023 Documentation Pain Management Center [address] [place] [address], 4th [place] [address] Randall Ferrer 01/20/2023 Travel 01/19/2023 3:30 PM CDT Clinical Support MD [facility] - Radiation Oncology [address] [place] [address] 1[address] [place] [address] Winter Luu MD 01/19/2023 Travel 01/14/2023 Orders Only [facility] - Speech Pathology [address] [place] [address] Main [facility], 10th [place] [address] Mukund Gorman, [facility]-IMPORT COORDINATOR Dysphagia, oropharyngeal phase (Primary Dx) 01/12/2023 [facility] Internal Medicine Center [address] [facility] Main Bldg, 9th [place] [address] Karen Ordaz MD Hypertension 01/11/2023 7:31 PM CDT - 01/18/2023 7:34 PM CDT Hospital Encounter MAIN [address] [place] [address] Reva Rajput MD Cameron, Brian, MD Nguyen, MD Lee Solomon [place], DO Halm, Josiah, MD Headache, not [...] and synthetic analogues, subsequent encounter; 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; Hyperlipidemia, not otherwise specified; Gastroesophageal reflux disease; Essential hypertension; Mucositis (ulcerative) due to antineoplastic therapy; Neoplasm related pain (acute) (chronic); Hypertension; 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; Insulin resistance Discharge Disposition: Home with Home-Health or Physical Therapy 01/11/2023 Travel 01/11/2023 Telephone MD [facility] [place] - Radiation Oncology [address] [place] [address] Felisa Castillo RN 01/08/2023 10:00 AM BREADING MACHINE TENDER Nutrition Clinical Nutrition For your Nutrition appointment location directions please call: Kenya Agarwal MD Martin, Cathy A, RD 01/08/2023 Travel 01/07/2023 9:00 AM BREADING MACHINE TENDER Infusion MD [facility] [place] - Infusion [address] [place] [address] Lorena Hdez APRN Adenoid cystic carcinoma of nasopharynx, NOS (Primary Dx) 01/07/2023 8:40 AM BREADING MACHINE TENDER Follow-Up MD [facility] [place] [address] [place] [address] Lorena Hdez, BORIS Adenoid cystic carcinoma of nasopharynx, NOS (Primary Dx) 01/07/2023 Travel 01/06/2023 11:00 AM BREADING MACHINE TENDER Infusion MD [facility] - Infusion [address] [place] [address], [place] [address] Lorena Hdez APRN Adenoid cystic carcinoma of nasopharynx, NOS (Primary Dx) 01/06/2023 Travel 01/05/2023 Travel 01/04/2023 2:00 PM BREADING MACHINE TENDER Clinical Support MD [facility] - Radiation Oncology [address] [place] [address] Winter Luu MD Adenocarcinoma of nasopharynx (Primary Dx) 01/04/2023 10:45 AM BREADING MACHINE TENDER Infusion MD [facility] - Infusion [address] [place] [address] Lorena Hdez APRN Adenoid cystic carcinoma of nasopharynx, NOS (Primary Dx) 01/04/2023 Travel 01/01/2023 9:00 AM BREADING MACHINE TENDER Infusion MD [facility] - Infusion [address] [place] [address] Lorena Hdez APRN Adenoid cystic carcinoma of nasopharynx, NOS (Primary Dx) 01/01/2023 8:40 AM BREADING MACHINE TENDER Follow-Up MD [facility] - Thoracic Medicine [address] [place] [address] Vaibhav Rosario MD Adenoid cystic carcinoma of nasopharynx, NOS (Primary Dx); Neoplasm related pain (acute) (chronic) 01/01/2023 Refill MD [facility] - Pain Medicine [address] [place] [address] Brittni Guardado RN Neoplasm related pain (acute) (chronic) 01/01/2023 Travel 12/31/2022 Telephone MD [facility] - Thoracic Medicine [address] [place] [address] Tita Kwon RN Pain med request and nausea - missed treatment 12/31/2022 Orders Only MD [facility] [address] [place] [address] Lorena Hdez APRN Adenoid cystic carcinoma of nasopharynx, NOS (Primary Dx) 12/30/2022 9:33 AM BREADING MACHINE TENDER - 12/30/2022 11:59 PM BREADING MACHINE TENDER Hospital Encounter Pain Management Center [address] [place] [address] Main [facility], 4th [place] [address] Miguel Gordon MD Cancer associated pain (Primary Dx); Headache, not otherwise specified Discharge Disposition: Home 12/30/2022 Travel 12/29/2022 8:00 AM BREADING MACHINE TENDER - 12/29/2022 11:59 PM BREADING MACHINE TENDER Hospital Encounter Main Flex [facility] [address] [place] [address] Main [facility], 7th [place] [address] Suzanne Mcgrath MD Adenocarcinoma of nasopharynx; Sixth (abducent) nerve palsy, left eye; Diplopia; Corneal anesthesia <Left side>; Disorder of trigeminal nerve, not otherwise specified Discharge Disposition: Home 12/29/2022 Travel 12/28/2022 2:00 PM BREADING MACHINE TENDER Clinical Support MD [facility] - Radiation Oncology [address] [place] [address] Winter Luu MD 12/28/2022 10:00 AM BREADING MACHINE TENDER Nutrition Clinical Nutrition For your Nutrition appointment location directions please call: Kenya Agarwal MD Martin, Cathy A, RD 12/28/2022 Travel 12/25/2022 Travel 12/24/2022 8:45 AM BREADING MACHINE TENDER Infusion MD [facility] - Infusion [address] [place] [address] Lorena Hdez APRN Adenoid cystic carcinoma of nasopharynx, NOS (Primary Dx) 12/24/2022 8:20 AM BREADING MACHINE TENDER Follow-Up MD [facility] - Thoracic Medicine [address] [place] [address] Vaibhav Rosario MD Adenoid cystic carcinoma of nasopharynx, NOS 12/24/2022 Telephone [facility] Radiation Oncology [address] [place] [address] Felisa Castillo RN 12/24/2022 Telephone [facility] - Head & Neck Surgery [address] [place] [address] Kenya Agarwal MD Appointment 12/24/2022 Telephone [facility] Thoracic Medicine [address] [place] [address] Tita Kwon, JCARLOS 12/24/2022 Telephone [facility] Thoracic Medicine [address] [place] [address] Tita Kwon RN 12/24/2022 Telephone MD [facility] [address] [place] [phone] Vaibhav Rosario MD Medication Problem 12/24/2022 Travel 12/24/2022 Orders Only [facility] Thoracic Medicine [address] [place] [phone] Vaibhav Rosario MD 12/23/2022 10:15 AM BREADING MACHINE TENDER Clinical Support [facility] [address] [facility], 8th Floor Elevator [place] [address] Winter Luu MD Estevis, Soreli, [place] Suspected COVID-19 (Primary Dx); Adenocarcinoma of nasopharynx 12/23/2022 9:30 AM BREADING MACHINE TENDER - 12/23/2022 11:59 PM BREADING MACHINE TENDER Hospital Encounter Oral Oncology [address] [facility] Main [facility], 9th [place] [address] Otilia Luciano, BOBBY Adenoid cystic carcinoma of nasopharynx, NOS Discharge Disposition: Home 12/23/2022 Documentation [facility] [address] [place] [address] Winter Luu MD 12/23/2022 Telephone [facility] [address] [place] [phone] Vaibhav Rosario MD Results (Test note ) 12/23/2022 Telephone [facility] Rad[facility] On[facility] [address] [place] [phone] Tita Kwon, JCARLOS Results (Test note-per Daniela request) 12/23/2022 Travel 12/23/2022 Orders Only [address] [address] Lorena Hdez, PRODUCTION ASSEMBLY OPERATOR Adenoid cystic carcinoma of nasopharynx, NOS (Primary Dx) 12/18/2022 Orders Only [facility] [address] [place] [phone] Lindy Montenegro PA 12/18/2022 Orders Only [facility] [address] [place] [phone] Lindy Montenegro PA Adenocarcinoma of nasopharynx 12/17/2022 8:00 AM BREADING MACHINE TENDER Clinical Support [facility] [address] [place] [phone] Kenya Agarwal MD Lawrence, Holly D, RN 12/17/2022 Documentation [facility] [address] Main [place] [address] Winter Luu MD 12/17/2022 Documentation [facility] [address] Main [place] [address] Winter Luu MD 12/17/2022 Documentation [facility] [address] Main [place] [address] Winter Luu MD 12/17/2022 Orders Only [address] [address] Lorena Hdez APRN Adenoid cystic carcinoma of nasopharynx, NOS (Primary Dx) 12/17/2022 Travel 12/17/2022 Orders Only MD [facility] [address] [place] [phone] Winter Luu MD 12/16/2022 Orders Only MD [facility] [address] [place] [phone] Winter Luu MD Adenocarcinoma of nasopharynx (Primary Dx) 12/16/2022 Telephone [facility] Radiation Oncology [address] [place] [address] Felisa Castillo, RN 12/16/2022 Telephone Endocrine Center [address] [facility] Main [facility], 6th [place] [address] Rosmery Dickinson, ADAM 12/15/2022 8:42 AM BREADING MACHINE TENDER - 12/15/2022 11:59 PM BREADING MACHINE TENDER Hospital Encounter Oral Oncology [address] [facility], 9th [place] [address] Kenya Agarwal MD Encounter for observation for other suspected disease ruled out Discharge Disposition: Home 12/15/2022 Refill MD [facility] Oncology [address] [place] [phone] Lindy Montenegro PA Adenocarcinoma of nasopharynx 12/15/2022 Orders Only [facility] [address] [facility] Main dg, 4th [place] [address] Rogerio Kramer MD Neoplasm related pain (acute) (chronic) (Primary Dx) 12/15/2022 Orders Only [facility] [address] Main Bldg, 4th [place] [address] Rogerio Kramer MD 12/15/2022 Orders Only [facility] [address] Main Bldg, 9th [place] [address] Maya Osman, OD Sixth (abducent) nerve palsy, left eye (Primary Dx) 12/15/2022 Ophth Exam [facility] [address] [facility] Main Bldg, 9th [place] [address] Maya Osman, OD 12/14/2022 Orders Only Oral Oncology [address] [facility] Main Bldg, 9th [place] [address] Wilder Soliz MD Encounter for observation for other suspected disease ruled out (Primary Dx) 12/11/2022 Telephone Oral Oncology [address] [facility] Main Bldg, 9th [place] [address] Triston Gomez RN 12/10/2022 Travel 12/10/2022 Orders Only Oral Oncology [address] [facility] Main Bldg, 9th [place] [address] Wilder Soliz MD Encounter for observation for other suspected disease ruled out (Primary Dx) 12/09/2022 9:01 PM BREADING MACHINE TENDER - 12/15/2022 7:30 PM [facility] Hospital Encounter MAIN P04A [address] [place] [id number] Mer Milian MD Cameron, Brian, MD Yeung, Sai-Ching, MD Altay, Haider, MD Manzano, MD Jessica Grant Kwame, MD Brito-Dellan, Norman, MD Leung, MD Karen Type 2 diabetes mellitus without complication (Primary Dx); Adenoid cystic carcinoma of nasopharynx, NOS; Headache; Blurring of visual image; Adenocarcinoma of nasopharynx; Encounter for observation for other suspected disease ruled out; Headache, not otherwise specified; Diplopia; Hypertension; Gastroesophageal reflux disease Discharge Disposition: Home 12/08/2022 Telephone MD [facility] [place] - Radiation Oncology [address] [address] Lindy Montenegro PA 12/08/2022 Orders Only MD [facility] [place] [address] [place] [phone] Lorena Hdez, PRODUCTION ASSEMBLY OPERATOR Adenoid cystic carcinoma of nasopharynx, NOS (Primary Dx) 12/05/2022 Telephone MD [facility] [place] - Radiation Oncology [address] [address] Winter Luu MD 12/05/2022 Orders Only MD [facility] [place] - Radiation Oncology [address] [place] [phone] Winter Luu MD Adenocarcinoma of nasopharynx (Primary Dx) 12/04/2022 10:55 AM BREADING MACHINE TENDER - 12/04/2022 11:59 PM BREADING MACHINE TENDER Hospital Encounter TAO Benitez, MD Lemuel Dia Jennifer Leigh, PRODUCTION ASSEMBLY OPERATOR Discharge Disposition: Home 12/04/2022 Telephone MD [facility] [place] - Head & Neck Surgery [address] [place] [address] Red Berman, PRODUCTION ASSEMBLY OPERATOR 12/04/2022 Multidisciplinary Visit MD [facility] [address] [place] [address] Red Berman, PRODUCTION ASSEMBLY OPERATOR 12/04/2022 Telephone MD [facility] [place] - Radiation Oncology [address] [address] Maria Luz Cochran, RN 12/02/2022 Orders Only MD [facility] [place] - Radiation Oncology [address] [place] [phone] Lindy Montenegro PA Adenocarcinoma of nasopharynx (Primary Dx) 12/02/2022 Orders Only MD [facility] [place] - Radiation Oncology [address] [address] Winter Luu MD Adenocarcinoma of nasopharynx (Primary Dx) 11/30/2022 8:15 AM BREADING MACHINE TENDER Ancillary Procedure [facility] MRI [address] [facility], 4th [place] [address] Lorena Hdez APRN Adenocarcinoma of nasopharynx 11/30/2022 Travel 11/27/2022 12:00 PM BREADING MACHINE TENDER Ancillary Procedure [facility] [address] [place] [address] [address] [place] [address] Lindy Montenegro PA Adenocarcinoma of nasopharynx; 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 11/27/2022 Travel 11/26/2022 11:00 AM BREADING MACHINE TENDER Consult MD [facility] [place] - Thoracic Medicine [address] [place] [address] Vaibhav Rosario MD Adenocarcinoma of nasopharynx 11/26/2022 10:00 AM BREADING MACHINE TENDER Consult MD [facility] [place] - Radiation Oncology [address] [place] [address] Winter Luu MD Adenocarcinoma of nasopharynx; 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 11/26/2022 Travel 11/24/2022 Lab Requisition [facility] David Nunez MD Xu, Ya, MD Discharge Disposition: Home 11/23/2022 Telephone MD [facility] [address] [place] [address] Ofe Bardales, RN 11/22/2022 Orders Only Oral Oncology [address] [facility], 9th [place] [address] Berkley Aguayo MD Encounter for observation for other suspected condition ruled out (Primary Dx) 11/20/2022 Telephone MD [facility] [place] [address] [place] [address] Elana Child, JCARLOS 11/17/2022 9:15 AM BREADING MACHINE TENDER Office Visit MD [facility] Neck Surgery [address] [place] [address] Kenya Agarwal MD Adenocarcinoma of nasopharynx 11/17/2022 8:45 AM BREADING MACHINE TENDER NPR MDA PATIENT ACCESS Kenya Agarwal MD 11/17/2022 Travel 11/16/2022 Orders Only MD [facility] [place] - Head & Neck Surgery [address] [place] [address] Red Berman, PRODUCTION ASSEMBLY OPERATOR Adenocarcinoma of nasopharynx (Primary Dx) 11/12/2022 Orders Only MD [facility] [place] - Head & Neck Surgery [address] [place] [address] Chloe Honeycutt PA 11/12/2022 Orders Only [facility] [address] [facility], 10th Floor, [place] [address] Red Berman, PRODUCTION ASSEMBLY OPERATOR Adenocarcinoma of nasopharynx (Primary Dx); 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 after 10/14/2022 Surgical History Surgery Date Site/Laterality Comments APPENDECTOMY [id number] COLONOSCOPY [id number] CHOLECYSTECTOMY [id number] KNEE ARTHROPLASTY Right SHOULDER SURGERY 050@2010 Left UPPER GASTROINTESTINAL ENDOSCOPY [id number] SECTION, CLASSIC 11/01/1984 - 10/31/1985 PARTIAL HYSTERECTOMY 03/01/2012 - 03/31/2012 MYRINGOTOMY WITH ASPIRATION AND INSERTION PE TUBES 11/01/2019 - 10/31/2020 SLEEVE GASTROPLASTY N/A Medical History Medical History Date Comments Hypertension [id number] Hyperlipidemia [id number] Allergic rhinitis [id number] Fatty liver [id number] Gastric reflux [id number] Gastric ulcer [id number] Crohn's disease [id number] Gout [id number] Type 2 diabetes mellitus wit h hyperglycemia 2005429 Anxiety [id number] Chronic obstructive pulmonary disease On home supplemental [...] Sex Assigned at Female 11/12/2022 2:07 PM BREADING MACHINE TENDER Gender Identity Female 11/12/2022 2:07 PM BREADING MACHINE TENDER Sexual Orientation Not on file Job Start [...] (320 lb 5.3 oz) 023 10:01 AM BREADING MACHINE TENDER Height 155 cm (5' 1.02") 09/13/2023 10: 01 AM BREADING MACHINE TENDER Body Mass Index 60.48 09/13/2023 10:01 AM BREADING MACHINE TENDER Plan of Treatment Upcoming Encounters Date Type Department Care Team Description 10/27/2023 9:00 AM BREADING MACHINE TENDER Lab [facility] - Diagnostic Laboratory Center [address] [facility] 1st [place] [address] [place] [address] [place] [address] 11/03/2023 1:30 PM BREADING MACHINE TENDER Telemedicine [facility] [address] [place] [address], 6th [place] [address] Marily Garcia, BORIS [address] [place] [address] 11/23/2023 9:30 AM BREADING MACHINE TENDER Follow-Up MD [facility] - [facility] [address] [place] [address] Kenya Agarwal MD [address] [place], [place] [phone] Health Maintenance Due Date Last Done Comments COVID-19 Vaccination ( season) 2023 07/11/2021, 01/01/2021, 12/03/2020 Medical Devices Implanted Type Area Program Director/Morning Show Host Device Identifier Shelf Expiration Date Model / Serial / Lot Gastric Sleeve Sleeve Midline: Stomach Procedures Procedure Name Priority Date/Time Associated Diagnosis Comments MRI ORBITS W WO CONTRAST Routine 023 11:51 AM BREADING MACHINE TENDER Adenoid cystic carcinoma of nasopharynx, NOS CORTISOL, TOTAL Routine 09/13/2023 9:29 AM BREADING MACHINE TENDER Adenoid cystic carcinoma of nasopharynx, NOS ADRENOCORTICOTROPIC HORMONE Routine 09/13/2023 9:29 AM BREADING MACHINE TENDER Adenoid cystic carcinoma of nasopharynx, NOS ESTRADIOL LEVEL Routine 09/13/2023 9:29 AM BREADING MACHINE TENDER Adenoid cystic carcinoma of nasopharynx, NOS FOLLICLE STIMULATING HORMONE LEVEL Routine 09/13/2023 9:29 AM BREADING MACHINE TENDER Adenoid cystic carcinoma of nasopharynx, NOS LUTEINIZING HORMONE Routine 09/13/2023 9 :29 AM BREADING MACHINE TENDER Adenoid cystic carcinoma of nasopharynx, NOS THYROID STIMULATING HORMONE Routine 09/13/2023 9:29 AM BREADING MACHINE TENDER Adenoid cystic carcinoma of nasopharynx, NOS TRIIODOTHYRONINE Routine 09/13/2023 9:29 AM BREADING MACHINE TENDER Adenoid cystic carcinoma of nasopharynx, NOS FREE THYROXINE Routine 09/13/2023 9:29 AM BREADING MACHINE TENDER Adenoid cystic carcinoma of nasopharynx, NOS INSULIN-LIKE GROWTH FACTOR 1 Routine 09/13/2023 9:29 AM BREADING MACHINE TENDER Adenoid cystic carcinoma of nasopharynx, NOS PROLACTIN Routine 09/13/2023 9:29 AM BREADING MACHINE TENDER Adenoid cystic carcinoma of nasopharynx, NOS ADRENOCORTICOTROPIC [...] carcinoma of nasopharynx, NOS FRACTIONATED BILIRUBIN Routine 1:03 PM CDT Adenoid cystic carcinoma of [...] 02/07 6:52 AM CDT ALANINE AMINOTRANSFERASE AM 6:52 AM CDT ALKALINE PHOSPHATASE AM 02/07/2023 [...] AM CDT BLOOD UREA NITROGEN AM 01/28/2023 3 :00 AM CDT GLUCOSE LEVEL AM 01/28/2023 3:00 [...] 2:48 AM CDT ELECTROLYTE PANEL AM 01/27/2023 2:48 AM CDT BLOOD UREA NITROGEN AM 01/27/2023 [...] 01/26 2:44 PM CDT ALANINE AMINOTRANSFERASE Routine 023 2:44 PM CDT ALKALINE PHOSPHATASE Routine 01/26/2023 [...] 01/26/2023 2:44 PM CDT FRACTIONATED BILIRUBIN Routine 3 2:44 PM CDT PHOSPHORUS LEVEL Routine 01/26/2023 [...] PANEL, URINE Routine 01/20/2023 12:37 PM CDT retirement current use of opiate analgesic POC GLUCOSE [...] PM CDT POC GLUCOSE SCREEN Routine 01/15/2023 1: 11 PM CDT POC GLUCOSE SCREEN Routine 01/15/2023 [...] 1 OR 2 VW RIGHT Routine 01/12/20 23 10:22 PM CDT POC GLUCOSE SCREEN Routine 01/11/2023 8: [address] HEAD WO CONTRAST Routine 01/11/2023 6 :29 PM CDT FRACTIONATED BILIRUBIN Routine 3 4:11 PM CDT TOTAL PROTEIN Routine 01/11/2023 [...] PM CDT DIFFERENTIAL Routine 01/07/2023 8:28 AM BREADING MACHINE TENDER Adenoid cystic carcinoma of nasopharynx, NOS .CBC Routine 01/07/2023 8:28 AM BREADING MACHINE TENDER Adenoid cystic carcinoma of nasopharynx, NOS FRACTIONATED BILIRUBIN Routine 8:28 AM BREADING MACHINE TENDER Adenoid cystic carcinoma of nasopharynx, NOS TOTAL PROTEIN Routine 01/07/2023 8:28 AM BREADING MACHINE TENDER Adenoid cystic carcinoma of nasopharynx, NOS ASPARTATE AMINOTRANSFERASE Routine 01/07 8:28 AM BREADING MACHINE TENDER Adenoid cystic carcinoma of nasopharynx, NOS ALANINE AMINOTRANSFERASE Routine 8:28 AM BREADING MACHINE TENDER Adenoid cystic carcinoma of nasopharynx, NOS ALKALINE PHOSPHATASE Routine 01/07/2023 8:28 AM BREADING MACHINE TENDER Adenoid cystic carcinoma of nasopharynx, NOS ALBUMIN LEVEL Routine 01/07/2023 8:28 AM BREADING MACHINE TENDER Adenoid cystic carcinoma of nasopharynx, NOS CALCIUM LEVEL Routine 01/07/2023 8:28 AM BREADING MACHINE TENDER Adenoid cystic carcinoma of nasopharynx, NOS .GLOMERULAR FILTRATION RATE Routine 01/07/2023 8:28 AM BREADING MACHINE TENDER Adenoid cystic carcinoma of nasopharynx, NOS SERUM CREATININE Routine 01/07/2023 8:28 AM BREADING MACHINE TENDER Adenoid cystic carcinoma of nasopharynx, NOS ELECTROLYTE PANEL Routine 01/07/2023 8:2 8 AM BREADING MACHINE TENDER Adenoid cystic carcinoma of nasopharynx, NOS BLOOD UREA NITROGEN Routine 01/07/2023 8 :28 AM BREADING MACHINE TENDER Adenoid cystic carcinoma of nasopharynx, NOS GLUCOSE LEVEL Routine 01/07/2023 8:28 AM BREADING MACHINE TENDER Adenoid cystic carcinoma of nasopharynx, NOS PHOSPHORUS LEVEL Routine 01/07/2023 8:28 AM BREADING MACHINE TENDER Adenoid cystic carcinoma of nasopharynx, NOS MAGNESIUM LEVEL Routine 01/07/2023 8:28 AM BREADING MACHINE TENDER Adenoid cystic carcinoma of nasopharynx, NOS COMPLETE BLOOD COUNT W/ DIFFERENTIAL Routine 01/07/2023 8:28 AM BREADING MACHINE TENDER Adenoid cystic carcinoma of nasopharynx, NOS COMPREHENSIVE METABOLIC PANEL Routine 01/07/2023 8:28 AM BREADING MACHINE TENDER Adenoid cystic carcinoma of nasopharynx, NOS DIFFERENTIAL Routine 01/01/2023 8:26 AM BREADING MACHINE TENDER Adenoid cystic carcinoma of nasopharynx, NOS .CBC Routine 01/01/2023 8:26 AM BREADING MACHINE TENDER Adenoid cystic carcinoma of nasopharynx, NOS FRACTIONATED BILIRUBIN Routine 8:26 AM BREADING MACHINE TENDER Adenoid cystic carcinoma of nasopharynx, NOS TOTAL PROTEIN Routine 01/01/2023 8:26 AM BREADING MACHINE TENDER Adenoid cystic carcinoma of nasopharynx, NOS ASPARTATE AMINOTRANSFERASE Routine 01/01 8:26 AM BREADING MACHINE TENDER Adenoid cystic carcinoma of nasopharynx, NOS ALANINE AMINOTRANSFERASE Routine 023 8:26 AM BREADING MACHINE TENDER Adenoid cystic carcinoma of nasopharynx, NOS ALKALINE PHOSPHATASE Routine 01/01/2023 8:26 AM BREADING MACHINE TENDER Adenoid cystic carcinoma of nasopharynx, NOS ALBUMIN LEVEL Routine 01/01/2023 8:26 AM BREADING MACHINE TENDER Adenoid cystic carcinoma of nasopharynx, NOS CALCIUM LEVEL Routine 01/01/2023 8:26 AM BREADING MACHINE TENDER Adenoid cystic carcinoma of nasopharynx, NOS .GLOMERULAR FILTRATION RATE Routine 01/01/2023 8:26 AM BREADING MACHINE TENDER Adenoid cystic carcinoma of nasopharynx, NOS SERUM CREATININE Routine 01/01/2023 8:26 AM BREADING MACHINE TENDER Adenoid cystic carcinoma of nasopharynx, NOS ELECTROLYTE PANEL Routine 01/01/2023 8:2 6 AM BREADING MACHINE TENDER Adenoid cystic carcinoma of nasopharynx, NOS BLOOD UREA NITROGEN Routine 01/01/2023 8 :26 AM BREADING MACHINE TENDER Adenoid cystic carcinoma of nasopharynx, NOS GLUCOSE LEVEL Routine 01/01/2023 8:26 AM BREADING MACHINE TENDER Adenoid cystic carcinoma of nasopharynx, NOS PHOSPHORUS LEVEL Routine 01/01/2023 8:26 AM BREADING MACHINE TENDER Adenoid cystic carcinoma of nasopharynx, NOS MAGNESIUM LEVEL Routine 01/01/2023 8:26 AM BREADING MACHINE TENDER Adenoid cystic carcinoma of nasopharynx, NOS COMPLETE BLOOD COUNT W/ DIFFERENTIAL Routine 01/01/2023 8:26 AM BREADING MACHINE TENDER Adenoid cystic carcinoma of nasopharynx, NOS COMPREHENSIVE METABOLIC PANEL Routine 01/01/2023 8:26 AM BREADING MACHINE TENDER Adenoid cystic carcinoma of nasopharynx, NOS [place] VISUAL FIELD, INTERMEDIATE - OU - BOTH EYES Routine 12/29/2022 10:51 AM BREADING MACHINE TENDER Sixth (abducent) nerve palsy, left eye OCT, OPTIC NERVE - OU - BOTH EYES Routine 12/29/2022 10:43 AM BREADING MACHINE TENDER Sixth (abducent) nerve palsy, left eye OCT, RETINA - OU - BOTH EYES Routine 12/29/2022 10:43 AM BREADING MACHINE TENDER Sixth (abducent) nerve palsy, left eye DIFFERENTIAL Routine 12/24/2022 9:16 AM BREADING MACHINE TENDER Adenoid cystic carcinoma of nasopharynx, NOS .CBC Routine 12/24/2022 9:16 AM BREADING MACHINE TENDER Adenoid cystic carcinoma of nasopharynx, NOS FRACTIONATED BILIRUBIN Routine 9:16 AM BREADING MACHINE TENDER Adenoid cystic carcinoma of nasopharynx, NOS TOTAL PROTEIN Routine 12/24/2022 9:16 AM BREADING MACHINE TENDER Adenoid cystic carcinoma of nasopharynx, NOS ASPARTATE AMINOTRANSFERASE Routine 12/24 9:16 AM BREADING MACHINE TENDER Adenoid cystic carcinoma of nasopharynx, NOS ALANINE AMINOTRANSFERASE Routine 023 9:16 AM BREADING MACHINE TENDER Adenoid cystic carcinoma of nasopharynx, NOS ALKALINE PHOSPHATASE Routine 12/24/2022 9:16 AM BREADING MACHINE TENDER Adenoid cystic carcinoma of nasopharynx, NOS ALBUMIN LEVEL Routine 12/24/2022 9:16 AM BREADING MACHINE TENDER Adenoid cystic carcinoma of nasopharynx, NOS CALCIUM LEVEL Routine 12/24/2022 9:16 AM BREADING MACHINE TENDER Adenoid cystic carcinoma of nasopharynx, NOS .GLOMERULAR FILTRATION RATE Routine 12/24/2022 9:16 AM BREADING MACHINE TENDER Adenoid cystic carcinoma of nasopharynx, NOS SERUM CREATININE Routine 12/24/2022 9:16 AM BREADING MACHINE TENDER Adenoid cystic carcinoma of nasopharynx, NOS ELECTROLYTE PANEL Routine 12/24/2022 9:1 6 AM BREADING MACHINE TENDER Adenoid cystic carcinoma of nasopharynx, NOS BLOOD UREA NITROGEN Routine 12/24/2022 9 :16 AM BREADING MACHINE TENDER Adenoid cystic carcinoma of nasopharynx, NOS GLUCOSE LEVEL Routine 12/24/2022 9:16 AM BREADING MACHINE TENDER Adenoid cystic carcinoma of nasopharynx, NOS PHOSPHORUS LEVEL Routine 12/24/2022 9:16 AM BREADING MACHINE TENDER Adenoid cystic carcinoma of nasopharynx, NOS MAGNESIUM LEVEL Routine 12/24/2022 9:16 AM BREADING MACHINE TENDER Adenoid cystic carcinoma of nasopharynx, NOS COMPLETE BLOOD COUNT W/ DIFFERENTIAL Routine 12/24/2022 9:16 AM BREADING MACHINE TENDER Adenoid cystic carcinoma of nasopharynx, NOS COMPREHENSIVE METABOLIC PANEL Routine 12/24/2022 9:16 AM BREADING MACHINE TENDER Adenoid cystic carcinoma of nasopharynx, NOS COVID-19 (SARS-COV-2) PCR - ASYMPTOMATIC - MC Routine 12/23/2022 12:01 PM BREADING MACHINE TENDER Suspected COVID-19 POC GLUCOSE SCREEN Routine 12/15/2022 6: 07 PM BREADING MACHINE TENDER POC GLUCOSE SCREEN Routine 12/15/2022 12:52 PM BREADING MACHINE TENDER OCT, OPTIC NERVE - OU - BOTH EYES Routine 12/15/2022 10:37 AM BREADING MACHINE TENDER Diplopia OCT, RETINA - OU - BOTH EYES Routine 12/15/2022 10:37 AM BREADING MACHINE TENDER Diplopia FUNDUS PHOTOS - OU - BOTH EYES Routine 12/15/2022 10:37 AM BREADING MACHINE TENDER Diplopia 3D DENTAL IMAGING (ICAT) Routine 023 8:42 AM BREADING MACHINE TENDER Encounter for observation for other suspected disease ruled out POC GLUCOSE SCREEN Routine 12/15/2022 7: 19 AM BREADING MACHINE TENDER POC GLUCOSE SCREEN Routine 12/15/2022 6: 12 AM BREADING MACHINE TENDER DIFFERENTIAL AM 12/15/2022 3:44 AM BREADING MACHINE TENDER .CBC AM 12/15/2022 3:44 AM BREADING MACHINE TENDER CALCIUM LEVEL AM 12/15/2022 3:44 AM BREADING MACHINE TENDER .GLOMERULAR FILTRATION RATE AM 12/15/2022 3:44 AM BREADING MACHINE TENDER SERUM CREATININE AM 12/15/2022 3:44 AM BREADING MACHINE TENDER ELECTROLYTE PANEL AM 12/15/2022 3:4 4 AM BREADING MACHINE TENDER BLOOD UREA NITROGEN AM 12/15/2022 3 :44 AM BREADING MACHINE TENDER GLUCOSE LEVEL AM 12/15/2022 3:44 AM BREADING MACHINE TENDER COMPLETE BLOOD COUNT W/ DIFFERENTIAL AM 12/15/2022 3:44 AM BREADING MACHINE TENDER PHOSPHORUS LEVEL AM 12/15/2022 3:44 AM BREADING MACHINE TENDER MAGNESIUM LEVEL AM 12/15/2022 3:44 AM BREADING MACHINE TENDER BASIC METABOLIC PANEL, CALCIUM TOTAL AM 12/15/2022 3:44 AM BREADING MACHINE TENDER POC GLUCOSE SCREEN Routine 12/15/2022 2: 28 AM BREADING MACHINE TENDER POC GLUCOSE SCREEN Routine 12/14/2022 10:04 PM BREADING MACHINE TENDER POC GLUCOSE SCREEN Routine 12/14/2022 5: 26 PM BREADING MACHINE TENDER POC GLUCOSE SCREEN Routine 12/14/2022 4: 14 PM BREADING MACHINE TENDER FL MODIFIED BARIUM SWALLOW W SPEECH Routine 12/14/2022 2:37 PM BREADING MACHINE TENDER POC GLUCOSE SCREEN Routine 12/14/2022 12:08 PM BREADING MACHINE TENDER GENERAL LABORATORY ADD ON TEST Routine 12/14/2022 8:03 AM BREADING MACHINE TENDER POC GLUCOSE SCREEN Routine 12/14/2022 7: 25 AM BREADING MACHINE TENDER POC GLUCOSE SCREEN Routine 12/14/2022 5: 55 AM BREADING MACHINE TENDER FRACTIONATED BILIRUBIN AM 4:46 AM BREADING MACHINE TENDER TOTAL PROTEIN AM 12/14/2022 4:46 AM BREADING MACHINE TENDER ASPARTATE AMINOTRANSFERASE AM 12/14 4:46 AM BREADING MACHINE TENDER ALANINE AMINOTRANSFERASE AM 023 4:46 AM BREADING MACHINE TENDER ALKALINE PHOSPHATASE AM 12/14/2022 4:46 AM BREADING MACHINE TENDER ALBUMIN LEVEL AM 12/14/2022 4:46 AM BREADING MACHINE TENDER DIFFERENTIAL AM 12/14/2022 4:46 AM BREADING MACHINE TENDER .CBC AM 12/14/2022 4:46 AM BREADING MACHINE TENDER CALCIUM LEVEL AM 12/14/2022 4:46 AM BREADING MACHINE TENDER .GLOMERULAR FILTRATION RATE AM 12/14/2022 4:46 AM BREADING MACHINE TENDER SERUM CREATININE AM 12/14/2022 4:46 AM BREADING MACHINE TENDER ELECTROLYTE PANEL AM 12/14/2022 4:4 6 AM BREADING MACHINE TENDER BLOOD UREA NITROGEN AM 12/14/2022 4 :46 AM BREADING MACHINE TENDER GLUCOSE LEVEL AM 12/14/2022 4:46 AM BREADING MACHINE TENDER COMPLETE BLOOD COUNT W/ DIFFERENTIAL AM 12/14/2022 4:46 AM BREADING MACHINE TENDER PHOSPHORUS LEVEL AM 12/14/2022 4:46 AM BREADING MACHINE TENDER MAGNESIUM LEVEL AM 12/14/2022 4:46 AM BREADING MACHINE TENDER BASIC METABOLIC PANEL, CALCIUM TOTAL AM 12/14/2022 4:46 AM BREADING MACHINE TENDER POC GLUCOSE SCREEN Routine 12/14/2022 1: 36 AM BREADING MACHINE TENDER POC GLUCOSE SCREEN Routine 12/13/2022 9: 56 PM BREADING MACHINE TENDER POC GLUCOSE SCREEN Routine 12/13/2022 6: 31 PM BREADING MACHINE TENDER POC GLUCOSE SCREEN Routine 12/13/2022 1: 24 PM BREADING MACHINE TENDER POC GLUCOSE SCREEN Routine 12/13/2022 8: 02 AM BREADING MACHINE TENDER POC GLUCOSE SCREEN Routine 12/13/2022 5: 58 AM BREADING MACHINE TENDER POC GLUCOSE SCREEN Routine 12/13/2022 3: 24 AM BREADING MACHINE TENDER DIFFERENTIAL AM 12/13/2022 3:12 AM BREADING MACHINE TENDER .CBC AM 12/13/2022 3:12 AM BREADING MACHINE TENDER CALCIUM LEVEL AM 12/13/2022 3:12 AM BREADING MACHINE TENDER .GLOMERULAR FILTRATION RATE AM 12/13/2022 3:12 AM BREADING MACHINE TENDER SERUM CREATININE AM 12/13/2022 3:12 AM BREADING MACHINE TENDER ELECTROLYTE PANEL AM 12/13/2022 3:1 2 AM BREADING MACHINE TENDER BLOOD UREA NITROGEN AM 12/13/2022 3 :12 AM BREADING MACHINE TENDER GLUCOSE LEVEL AM 12/13/2022 3:12 AM BREADING MACHINE TENDER COMPLETE BLOOD COUNT W/ DIFFERENTIAL AM 12/13/2022 3:12 AM BREADING MACHINE TENDER PHOSPHORUS LEVEL AM 12/13/2022 3:12 AM BREADING MACHINE TENDER MAGNESIUM LEVEL AM 12/13/2022 3:12 AM BREADING MACHINE TENDER BASIC METABOLIC PANEL, CALCIUM TOTAL AM 12/13/2022 3:12 AM BREADING MACHINE TENDER POC GLUCOSE SCREEN Routine 12/12/2022 9: 43 PM BREADING MACHINE TENDER POC GLUCOSE SCREEN Routine 12/12/2022 6: 16 PM BREADING MACHINE TENDER POC GLUCOSE SCREEN Routine 12/12/2022 12:52 PM BREADING MACHINE TENDER POC GLUCOSE SCREEN Routine 12/12/2022 7: 47 AM BREADING MACHINE TENDER POC GLUCOSE SCREEN Routine 12/12/2022 5: 52 AM BREADING MACHINE TENDER DIFFERENTIAL AM 12/12/2022 4:30 AM BREADING MACHINE TENDER .CBC AM 12/12/2022 4:30 AM BREADING MACHINE TENDER CALCIUM LEVEL AM 12/12/2022 4:30 AM BREADING MACHINE TENDER .GLOMERULAR FILTRATION RATE AM 12/12/2022 4:30 AM BREADING MACHINE TENDER SERUM CREATININE AM 12/12/2022 4:30 AM BREADING MACHINE TENDER ELECTROLYTE PANEL AM 12/12/2022 4:3 0 AM BREADING MACHINE TENDER BLOOD UREA NITROGEN AM 12/12/2022 4 :30 AM BREADING MACHINE TENDER GLUCOSE LEVEL AM 12/12/2022 4:30 AM BREADING MACHINE TENDER COMPLETE BLOOD COUNT W/ DIFFERENTIAL AM 12/12/2022 4:30 AM BREADING MACHINE TENDER PHOSPHORUS LEVEL AM 12/12/2022 4:30 AM BREADING MACHINE TENDER MAGNESIUM LEVEL AM 12/12/2022 4:30 AM BREADING MACHINE TENDER BASIC METABOLIC PANEL, CALCIUM TOTAL AM 12/12/2022 4:30 AM BREADING MACHINE TENDER POC GLUCOSE SCREEN Routine 12/12/2022 2: 06 AM BREADING MACHINE TENDER POC GLUCOSE SCREEN Routine 12/11/2022 10:01 PM BREADING MACHINE TENDER LACTIC ACID, VENOUS Timed Study 12/11/2022 9 :50 PM BREADING MACHINE TENDER LIPASE LEVEL STAT 12/11/2022 6:21 PM BREADING MACHINE TENDER BLOOD GAS VENOUS STAT 12/11/2022 6:21 PM BREADING MACHINE TENDER POC GLUCOSE SCREEN Routine 12/11/2022 6: 10 PM BREADING MACHINE TENDER GENERAL LABORATORY ADD ON TEST Routine 12/11/2022 5:39 PM BREADING MACHINE TENDER KETONE BODIES QUALITATIVE STAT 2022 5:19 PM BREADING MACHINE TENDER POC GLUCOSE SCREEN Routine 12/11/2022 4: 51 PM BREADING MACHINE TENDER LIPASE LEVEL STAT 12/11/2022 4:33 PM BREADING MACHINE TENDER ELECTROLYTE PANEL STAT 12/11/2022 4:3 3 PM BREADING MACHINE TENDER LACTIC ACID, VENOUS Timed Study 12/11/2022 4 :33 PM BREADING MACHINE TENDER POC GLUCOSE SCREEN Routine 12/11/2022 3: 34 PM BREADING MACHINE TENDER POC CRITICAL Routine 12/11/2022 3:34 PM BREADING MACHINE TENDER POC GLUCOSE SCREEN Routine 12/11/2022 2: 33 PM BREADING MACHINE TENDER POC CRITICAL Routine 12/11/2022 2:33 PM BREADING MACHINE TENDER POC GLUCOSE SCREEN Routine 12/11/2022 12:35 PM BREADING MACHINE TENDER POC GLUCOSE SCREEN Routine 12/11/2022 8: 14 AM BREADING MACHINE TENDER LACTIC ACID, VENOUS Routine 12/11/2022 4 :37 AM BREADING MACHINE TENDER DIFFERENTIAL AM 12/11/2022 4:30 AM BREADING MACHINE TENDER .CBC AM 12/11/2022 4:30 AM BREADING MACHINE TENDER CALCIUM LEVEL AM 12/11/2022 4:30 AM BREADING MACHINE TENDER .GLOMERULAR FILTRATION RATE AM 12/11/2022 4:30 AM BREADING MACHINE TENDER SERUM CREATININE AM 12/11/2022 4:30 AM BREADING MACHINE TENDER ELECTROLYTE PANEL AM 12/11/2022 4:3 0 AM BREADING MACHINE TENDER BLOOD UREA NITROGEN AM 12/11/2022 4 :30 AM BREADING MACHINE TENDER GLUCOSE LEVEL AM 12/11/2022 4:30 AM BREADING MACHINE TENDER COMPLETE BLOOD COUNT W/ DIFFERENTIAL AM 12/11/2022 4:30 AM BREADING MACHINE TENDER PHOSPHORUS LEVEL AM 12/11/2022 4:30 AM BREADING MACHINE TENDER MAGNESIUM LEVEL AM 12/11/2022 4:30 AM BREADING MACHINE TENDER BASIC METABOLIC PANEL, CALCIUM TOTAL AM 12/11/2022 4:30 AM BREADING MACHINE TENDER POC GLUCOSE SCREEN Routine 12/11/2022 1: 20 AM BREADING MACHINE TENDER POC GLUCOSE SCREEN Routine 12/10/2022 10:00 PM BREADING MACHINE TENDER POC GLUCOSE SCREEN Routine 12/10/2022 6: 29 PM BREADING MACHINE TENDER POC GLUCOSE SCREEN Routine 12/10/2022 5: 20 [address] MACH[address] HEAD WO CONTRAST STAT 12/10/2022 3 :21 PM BREADING MACHINE TENDER POC GLUCOSE SCREEN Routine 12/10/2022 1: 45 PM BREADING MACHINE TENDER POC GLUCOSE SCREEN Routine 12/10/2022 11:35 AM BREADING MACHINE TENDER POC GLUCOSE SCREEN Routine 12/10/2022 7: 30 AM BREADING MACHINE TENDER URINALYSIS WITH MICROSCOPIC IF INDICATED Routine 12/10/2022 6:13 AM BREADING MACHINE TENDER URINE CULTURE Routine 12/10/2022 6:13 AM BREADING MACHINE TENDER DIFFERENTIAL STAT 12/10/2022 5:13 AM BREADING MACHINE TENDER .CBC STAT 12/10/2022 5:13 AM BREADING MACHINE TENDER CALCIUM LEVEL AM 12/10/2022 5:13 AM BREADING MACHINE TENDER .GLOMERULAR FILTRATION RATE AM 12/10/2022 5:13 AM BREADING MACHINE TENDER SERUM CREATININE AM 12/10/2022 5:13 AM BREADING MACHINE TENDER ELECTROLYTE PANEL AM 12/10/2022 5:1 3 AM BREADING MACHINE TENDER BLOOD UREA NITROGEN AM 12/10/2022 5 :13 AM BREADING MACHINE TENDER GLUCOSE LEVEL AM 12/10/2022 5:13 AM BREADING MACHINE TENDER HEMOGLOBIN A1C Routine 12/10/2022 5:13 AM BREADING MACHINE TENDER COMPLETE BLOOD COUNT W/ DIFFERENTIAL AM 12/10/2022 5:13 AM BREADING MACHINE TENDER PHOSPHORUS LEVEL AM 12/10/2022 5:13 AM BREADING MACHINE TENDER MAGNESIUM LEVEL AM 12/10/2022 5:13 AM BREADING MACHINE TENDER BASIC METABOLIC PANEL, CALCIUM TOTAL AM 12/10/2022 5:13 AM BREADING MACHINE TENDER POC GLUCOSE SCREEN Routine 12/10/2022 1: 38 AM BREADING MACHINE TENDER POC GLUCOSE SCREEN Routine 12/09/2022 11:18 PM BREADING MACHINE TENDER POC VENOUS BLOOD GAS + LACTATE Routine 12/09/2022 9:36 PM BREADING MACHINE TENDER FRACTIONATED BILIRUBIN Routine 6:01 PM BREADING MACHINE TENDER TOTAL PROTEIN Routine 12/09/2022 6:01 PM BREADING MACHINE TENDER ASPARTATE AMINOTRANSFERASE Routine 02/08 /2023 6:01 PM BREADING MACHINE TENDER ALANINE AMINOTRANSFERASE Routine 023 6:01 PM BREADING MACHINE TENDER ALKALINE PHOSPHATASE Routine 12/09/2022 6:01 PM BREADING MACHINE TENDER ALBUMIN LEVEL Routine 12/09/2022 6:01 PM BREADING MACHINE TENDER CALCIUM LEVEL Routine 12/09/2022 6:01 PM BREADING MACHINE TENDER .GLOMERULAR FILTRATION RATE Routine 12/09/2022 6:01 PM BREADING MACHINE TENDER SERUM CREATININE Routine 12/09/2022 6:01 PM BREADING MACHINE TENDER ELECTROLYTE PANEL Routine 12/09/2022 6:0 1 PM BREADING MACHINE TENDER BLOOD UREA NITROGEN Routine 12/09/2022 6 :01 PM BREADING MACHINE TENDER GLUCOSE LEVEL Routine 12/09/2022 6:01 PM BREADING MACHINE TENDER DIFFERENTIAL STAT 12/09/2022 6:01 PM BREADING MACHINE TENDER .CBC STAT 12/09/2022 6:01 PM BREADING MACHINE TENDER LACTATE DEHYDROGENASE Routine 12/09/2022 6:01 PM BREADING MACHINE TENDER APTT Routine 12/09/2022 6:01 PM BREADING MACHINE TENDER PROTHROMBIN TIME Routine 12/09/2022 6:01 PM BREADING MACHINE TENDER PHOSPHORUS LEVEL Routine 12/09/2022 6:01 PM BREADING MACHINE TENDER MAGNESIUM LEVEL Routine 12/09/2022 6:01 PM BREADING MACHINE TENDER COMPREHENSIVE METABOLIC PANEL Routine 12/09/2022 6:01 PM BREADING MACHINE TENDER COMPLETE BLOOD COUNT W/ DIFFERENTIAL Routine 12/09/2022 6:01 PM BREADING MACHINE TENDER AMMONIA LEVEL Routine 12/09/2022 6:01 PM BREADING MACHINE TENDER COVID-19 (SARS-COV-2)PCR - ASYMPTOMATIC - LT Routine 12/09/2022 6:01 PM BREADING MACHINE TENDER HP MOLECULAR BLOOD COLLECTION Routine 12/04/2022 10:56 AM BREADING MACHINE TENDER AIDAN GRIFFIN SOLID TUMOR GENOMIC ASSAY FUSIONS 2018 INTERPRETATION AND REPORT Routine 12/04/2022 10:56 AM BREADING MACHINE TENDER AIDAN GRIFFIN MDA CHRISTINE MUTATION ANALYSIS PRECISION PANEL INTERPRETATION AND REPORT Routine 12/04/2022 10:56 AM BREADING MACHINE TENDER MRI SKULL BASE WITH AND WITHOUT CONTRAST Routine 11/30/2022 11:12 AM BREADING MACHINE TENDER Adenocarcinoma of nasopharynx PETCT F18 FDG (FLUORODEOXYGLUCOSE) WITH CONTRAST Routine 11/27/2022 3:57 PM BREADING MACHINE TENDER 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 POC GLUCOSE SCREEN Routine 11/27/2022 1: 06 PM BREADING MACHINE TENDER POC GLUCOSE SCREEN Routine 11/27/2022 12:29 PM BREADING MACHINE TENDER FRACTIONATED BILIRUBIN Routine 1:07 PM BREADING MACHINE TENDER Adenocarcinoma of nasopharynx TOTAL PROTEIN Routine 11/26/2022 1:07 PM BREADING MACHINE TENDER Adenocarcinoma of nasopharynx ASPARTATE AMINOTRANSFERASE Routine 11/26 1:07 PM BREADING MACHINE TENDER Adenocarcinoma of nasopharynx ALANINE AMINOTRANSFERASE Routine 023 1:07 PM BREADING MACHINE TENDER Adenocarcinoma of nasopharynx ALKALINE PHOSPHATASE Routine 11/26/2022 1:07 PM BREADING MACHINE TENDER Adenocarcinoma of nasopharynx ALBUMIN LEVEL Routine 11/26/2022 1:07 PM BREADING MACHINE TENDER Adenocarcinoma of nasopharynx CALCIUM LEVEL Routine 11/26/2022 1:07 PM BREADING MACHINE TENDER Adenocarcinoma of nasopharynx .GLOMERULAR FILTRATION RATE Routine 11/26/2022 1:07 PM BREADING MACHINE TENDER Adenocarcinoma of nasopharynx SERUM CREATININE Routine 11/26/2022 1:07 PM BREADING MACHINE TENDER Adenocarcinoma of nasopharynx ELECTROLYTE PANEL Routine 11/26/2022 1:0 7 PM BREADING MACHINE TENDER Adenocarcinoma of nasopharynx BLOOD UREA NITROGEN Routine 11/26/2022 1 :07 PM BREADING MACHINE TENDER Adenocarcinoma of nasopharynx GLUCOSE LEVEL Routine 11/26/2022 1:07 PM BREADING MACHINE TENDER Adenocarcinoma of nasopharynx DIFFERENTIAL Routine 11/26/2022 1:07 PM BREADING MACHINE TENDER Adenocarcinoma of nasopharynx .CBC Routine 11/26/2022 1:07 PM BREADING MACHINE TENDER Adenocarcinoma of nasopharynx PROTHROMBIN TIME Routine 11/26/2022 1:07 PM BREADING MACHINE TENDER Adenocarcinoma of nasopharynx APTT Routine 11/26/2022 1:07 PM BREADING MACHINE TENDER Adenocarcinoma of nasopharynx THYROID STIMULATING HORMONE Routine 11/26/2022 1:07 PM BREADING MACHINE TENDER Adenocarcinoma of nasopharynx VITAMIN D 25 HYDROXY LEVEL Routine 11/26 1:07 PM BREADING MACHINE TENDER Adenocarcinoma of nasopharynx URIC ACID Routine 11/26/2022 1:07 PM BREADING MACHINE TENDER Adenocarcinoma of nasopharynx PHOSPHORUS LEVEL Routine 11/26/2022 1:07 PM BREADING MACHINE TENDER Adenocarcinoma of nasopharynx MAGNESIUM LEVEL Routine 11/26/2022 1:07 PM BREADING MACHINE TENDER Adenocarcinoma of nasopharynx LACTATE DEHYDROGENASE Routine 11/26/2022 1:07 PM BREADING MACHINE TENDER Adenocarcinoma of nasopharynx FREE THYROXINE Routine 11/26/2022 1:07 PM BREADING MACHINE TENDER Adenocarcinoma of nasopharynx COMPREHENSIVE METABOLIC PANEL Routine 11/26/2022 1:07 PM BREADING MACHINE TENDER Adenocarcinoma of nasopharynx COMPLETE BLOOD COUNT W/ DIFFERENTIAL Routine 11/26/2022 1:07 PM BREADING MACHINE TENDER Adenocarcinoma of nasopharynx NGS BLOOD CONTROL Routine 11/26/2022 1:07 PM BREADING MACHINE TENDER Adenocarcinoma of nasopharynx AP IHC HER2/ARCENIO MATERIAL REQUEST Routine 11/26/2022 12:43 PM BREADING MACHINE TENDER Adenocarcinoma of nasopharynx AP IHC PD-L1 MATERIAL REQUEST Routine 11/26/2022 12:43 PM BREADING MACHINE TENDER Adenocarcinoma of nasopharynx AP PTEN MUTATION MATERIAL REQUEST Routine 11/26/2022 12:43 PM BREADING MACHINE TENDER Adenocarcinoma of nasopharynx AP MD MTOR MATERIAL REQUEST Routine 11/26/2022 12:43 PM BREADING MACHINE TENDER Adenocarcinoma of nasopharynx AP ERBB2 MUTATION ANALAYSIS MATERIAL REQUEST Routine 11/26/2022 12:43 PM BREADING MACHINE TENDER Adenocarcinoma of nasopharynx AP EGFR MUTATION MATERIAL REQUEST Routine 11/26/2022 12:43 PM BREADING MACHINE TENDER Adenocarcinoma of nasopharynx AP ALK MUTATION ANALAYSIS MATERIAL REQUEST Routine 11/26/2022 12:43 PM BREADING MACHINE TENDER Adenocarcinoma of nasopharynx AP NTRK3 FUSION ANALYSIS MATERIAL REQUEST Routine 11/26/2022 12:43 PM BREADING MACHINE TENDER Adenocarcinoma of nasopharynx AP NTRK2 FUSION ANALYSIS MATERIAL REQUEST Routine 11/26/2022 12:43 PM BREADING MACHINE TENDER Adenocarcinoma of nasopharynx AP NTRK1 FUSION ANALYSIS MATERIAL REQUEST Routine 11/26/2022 12:43 PM BREADING MACHINE TENDER Adenocarcinoma of nasopharynx DIFFERENTIAL Routine 11/17/2022 12:11 PM BREADING MACHINE TENDER Adenocarcinoma of nasopharynx .CBC Routine 11/17/2022 12:11 PM BREADING MACHINE TENDER Adenocarcinoma of nasopharynx FRACTIONATED BILIRUBIN Routine 12:11 PM BREADING MACHINE TENDER Adenocarcinoma of nasopharynx TOTAL PROTEIN Routine 11/17/2022 12:11 PM BREADING MACHINE TENDER Adenocarcinoma of nasopharynx ASPARTATE AMINOTRANSFERASE Routine 11/17 12:11 PM BREADING MACHINE TENDER Adenocarcinoma of nasopharynx ALANINE AMINOTRANSFERASE Routine 023 12:11 PM BREADING MACHINE TENDER Adenocarcinoma of nasopharynx ALKALINE PHOSPHATASE Routine 11/17/2022 12:11 PM BREADING MACHINE TENDER Adenocarcinoma of nasopharynx ALBUMIN LEVEL Routine 11/17/2022 12:11 PM BREADING MACHINE TENDER Adenocarcinoma of nasopharynx CALCIUM LEVEL Routine 11/17/2022 12:11 PM BREADING MACHINE TENDER Adenocarcinoma of nasopharynx .GLOMERULAR FILTRATION RATE Routine 11/17/2022 12:11 PM BREADING MACHINE TENDER Adenocarcinoma of nasopharynx SERUM CREATININE Routine 11/17/2022 12:11 PM BREADING MACHINE TENDER Adenocarcinoma of nasopharynx ELECTROLYTE PANEL Routine 11/17/2022 12:11 PM BREADING MACHINE TENDER Adenocarcinoma of nasopharynx BLOOD UREA NITROGEN Routine 11/17/2022 12:11 PM BREADING MACHINE TENDER Adenocarcinoma of nasopharynx GLUCOSE LEVEL Routine 11/17/2022 12:11 PM BREADING MACHINE TENDER Adenocarcinoma of nasopharynx PROLACTIN Routine 11/17/2022 12:11 PM BREADING MACHINE TENDER Adenocarcinoma of nasopharynx INSULIN-LIKE GROWTH FACTOR 1 Routine 11/17/2022 12:11 PM BREADING MACHINE TENDER Adenocarcinoma of nasopharynx TRIIODOTHYRONINE Routine 11/17/2022 12:11 PM BREADING MACHINE TENDER Adenocarcinoma of nasopharynx FREE THYROXINE Routine 11/17/2022 12:11 PM BREADING MACHINE TENDER Adenocarcinoma of nasopharynx THYROID STIMULATING HORMONE Routine 11/17/2022 12:11 PM BREADING MACHINE TENDER Adenocarcinoma of nasopharynx LUTEINIZING HORMONE Routine 11/17/2022 12:11 PM BREADING MACHINE TENDER Adenocarcinoma of nasopharynx FOLLICLE STIMULATING HORMONE LEVEL Routine 11/17/2022 12:11 PM BREADING MACHINE TENDER Adenocarcinoma of nasopharynx TESTOSTERONE LEVEL Routine 11/17/2022 12:11 PM BREADING MACHINE TENDER Adenocarcinoma of nasopharynx ESTRADIOL LEVEL Routine 11/17/2022 12:11 PM BREADING MACHINE TENDER Adenocarcinoma of nasopharynx ADRENOCORTICOTROPIC HORMONE Routine 11/17/2022 12:11 PM BREADING MACHINE TENDER Adenocarcinoma of nasopharynx CORTISOL, TOTAL Routine 11/17/2022 12:11 PM BREADING MACHINE TENDER Adenocarcinoma of nasopharynx PROTHROMBIN TIME Routine 11/17/2022 12:11 PM BREADING MACHINE TENDER Adenocarcinoma of nasopharynx APTT Routine 11/17/2022 12:11 PM BREADING MACHINE TENDER Adenocarcinoma of nasopharynx COMPLETE BLOOD COUNT W/ DIFFERENTIAL Routine 11/17/2022 12:11 PM BREADING MACHINE TENDER Adenocarcinoma of nasopharynx COMPREHENSIVE METABOLIC PANEL Routine 11/17/2022 12:11 PM BREADING MACHINE TENDER Adenocarcinoma of nasopharynx HEPATITIS C VIRUS ANTIBODY Routine 11/17 12:11 PM BREADING MACHINE TENDER Adenocarcinoma of nasopharynx PATHOLOGY OUTSIDE INTERPRETATION Routine 10/16/2022 after 10/14/2022 Results * MRI Orbits with and without Contrast (09/13/2023 11:51 AM BREADING MACHINE TENDER) Only the most recent of2 resultswithin the time period is included. Anatomical Region Laterality Modality Head Magnetic Resonan ce 09/13/2023 12:1 1 PM BREADING MACHINE TENDER Impressions 09/13/2023 12:37 PM BREADING MACHINE TENDER Probable stable posttreatment changes given patient motion. No cervical adenopathy. ACTIONABLE ITEMS/RECOMMENDATIONS: None. Narrative 09/13/2023 12:37 PM BREADING MACHINE TENDER FULL RESULT: Examination: MRI ORBITS W WO [...] cervical adenopathy. ACTIONABLE ITEMS/RECOMMENDATIONS: None. Lindy GALE IM MRI ORDERA BLES * IGF-1 (09/13/2023 9:29 AM BREADING MACHINE TENDER) Only the most recent of3 resultswithin the time period is included. Pathologist [facility] IGF-1, LC/MS, S 134 37 - 208 ng/mL 09/16/2023 4:11 PM BREADING MACHINE TENDER [facility] CAROLYN IGF Z-score 0.84 -2.0 - 2.0 SD 09/16/2023 4:11 PM BREADING MACHINE TENDER [facility] CAROLYN Comment: ADDITIONAL INFORMATION This test was developed and its performance characteristics determined by [facility] in a manner consistent with CLIA requirements. This test has not been cleared or approved by the [place]. Food and Drug Administration. Test Performed by: [facility] [place] [address] [employer] W[employer] Operator: Yonathan Guzman M.D. Ph.D.; CLIA# [id number] Blood Venipuncture / Unknown 09/13/2023 9:29 AM BREADING MACHINE TENDER 09/13/2023 9:29 AM BREADING MACHINE TENDER Lindy [facility] BLOOD [facility] CAROLYN * ACTH (09/13/2023 9:29 AM BREADING MACHINE TENDER) Only the most recent of4 resultswithin the time period is included. [facility] ACTH 16 7 - 63 pg/mL 09/13/2023 10:16 AM [facility] Blood Venipuncture / Unknown 09/13/2023 9:29 AM BREADING MACHINE TENDER 09/13/2023 9:29 AM BREADING MACHINE TENDER Narrative [place] - 09/13/2023 10:16 AM BREADING MACHINE TENDER Reference range established based on adult population (7 - 10am draws). No established reference values for p.m. draws. Results greater than 1826 pg/mL may not be reliable due to matrix effect with extended dilution as it exceeds the ui developer's recommended limit. ACTH reference intervals are established for the morning hours from 7-10 am. Due to the circadian rhythm of ACTH levels in plasma, the sample collection time must be noted. Caution should be exercised when interpreting such values and done in conjunction with clinical context. Lindy GALE LAB BLOOD ORDE [place] Performing Organization Address [facility] Co de Phone Number [facility] [address] [facility], [facility] [address] [place] [address] * Prolactin (09/13/2023 9:29 AM BREADING MACHINE TENDER) Only the most recent of3 resultswithin the time period is included. Prolactin Level 17.4 4.8 - 23.3 ng/mL 09/13/2023 2:43 PM BREADING MACHINE TENDER [facility] Blood Venipuncture / Unknown 09/13/2023 9:29 AM BREADING MACHINE TENDER 09/13/2023 9:29 AM BREADING MACHINE TENDER Narrative [facility] - 09/13/2023 2:43 PM BREADING MACHINE TENDER Results greater than 4700.0 ng/mL may not be reliable due to matrix effect with extended dilution as it exceeds the ui developer s recommended limit. Caution should be exercised when interpreting such values and done in conjunction with clinical context. Lindy GALE LAB BLOOD LUIS ENRIQUE [facility] Unless otherwise noted, all lab tests performed by: Division of Pathology and Laboratory Medicine [address] [place] [id number] * Estradiol (Women) (09/13/2023 9:29 AM BREADING MACHINE TENDER) Only the most recent of3 resultswithin the time period is included. Estradiol <11 pg/mL 09/13/2023 2:4 3 PM BREADING MACHINE TENDER [facility] Blood Venipuncture / Unknown 09/13/2023 9:29 AM BREADING MACHINE TENDER 09/13/2023 9:29 AM BREADING MACHINE TENDER Narrative [facility] - 09/13/2023 2:43 PM BREADING MACHINE TENDER Estradiol Reference Ranges Adult Female: Follicular: 31 - 90 pg/mL Luteal: 60 - 232 pg/mL Ovulation: 60 - 533 pg/mL Postmenopause: < 138 pg/ml Patients treated with Fulvestrant will show falsely increase in estradiol concentrations due to cross-reaction. For further information or assistance, please contact pathologist. Lindy GALE LAB BLOOD ORDLacho [facility] Unless otherwise noted, all lab tests performed by: Division of Pathology and Laboratory Medicine [address] [place] [id number] * Total T3 (09/13/2023 9:29 AM BREADING MACHINE TENDER) Only the most recent of3 resultswithin the time period is included. Triiodothyronine 110 80 - 200 ng/dL 09/13/2023 10:12 AM BREADING MACHINE TENDER [place] Blood Venipuncture / Unknown 09/13/2023 9:29 AM BREADING MACHINE TENDER 09/13/2023 9:29 AM BREADING MACHINE TENDER Lindy GALE LAB BLOOD ORDE [place] [facility] [address] [facility], [facility] [address] [place] [address] * TSH (09/13/2023 9:29 AM BREADING MACHINE TENDER) Only the most recent of4 resultswithin the time period is included. Thyroid Stimulating Hormone 1.68 0.27 - 4.20 mcunit/mL 09/13/2023 10:12 AM [facility] Blood Venipuncture / Unknown 09/13/2023 9:29 AM BREADING MACHINE TENDER 09/13/2023 9:29 AM BREADING MACHINE TENDER Lindy GALE LAB BLOOD [place]DE [place] [id number] [facility], [facility] [address] [place] [address] * Free T4 (09/13/2023 9:29 AM BREADING MACHINE TENDER) Only the most recent of4 resultswithin the time period is included. T4 (Thyroxine) Free 1.15 0.93 - 1.70 ng/dL 09/13/2023 10:12 AM BREADING MACHINE TENDER [place] Blood Venipuncture / Unknown 09/13/2023 9:29 AM BREADING MACHINE TENDER 09/13/2023 9:29 AM BREADING MACHINE TENDER Lindy GALE LAB BLOOD [place]DE [place] [id number] [place] [address] * LH (09/13/2023 9:29 AM BREADING MACHINE TENDER) Only the most recent of3 resultswithin the time period is included. Luteinizing Hormone 19.9 mIU/mL 09/13/2023 2:43 PM BREADING MACHINE TENDER [facility] Blood Venipuncture / Unknown 09/13/2023 9:29 AM BREADING MACHINE TENDER 09/13/2023 9:29 AM BREADING MACHINE TENDER Narrative [facility] - 09/13/2023 2:43 PM BREADING MACHINE TENDER Luteinizing Hormone Reference Ranges Female: Follicular: 2.4 - 12.6 mIU/mL Luteal: 1.0 - 11.4 mIU/mL Ovulation: 14.0 - 95.6 mIU/mL Post-menopause: 7.7 - 58.5 mIU/mL [facility] BLOOD ORDE [facility] Unless otherwise noted, all lab tests performed by: Division of Pathology and Laboratory Medicine [address] [place] [id number] * FSH (09/13/2023 9:29 AM BREADING MACHINE TENDER) Only the most recent of3 resultswithin the time period is included. Follicle Stimulating Hormone 37.5 mIU/mL 09/13/2023 2:43 PM BREADING MACHINE TENDER [facility] Blood Venipuncture / Unknown 09/13/2023 9:29 AM BREADING MACHINE TENDER 09/13/2023 9:29 AM BREADING MACHINE TENDER Narrative [facility] - 09/13/2023 2:43 PM BREADING MACHINE TENDER Follicle Stimulating Hormone Reference Ranges Female: Follicular: 3.5 - 12.5 mIU/mL Luteal: 1.7 - 7.7 mIU/mL Ovulation: 4.7 - 21.5 mIU/mL Post-menopause: 25.8 - 134.8 mIU/mL [facility] BLOOD OR[facility] Unless otherwise noted, all lab tests performed by: Division of Pathology and Laboratory Medicine [address] [place] [id number] * (ABNORMAL) Total Cortisol (09/13/2023 9:29 AM BREADING MACHINE TENDER) Only the most recent of4 resultswithin the time period is included. Cortisol 4.24(L) 4.82 - 19.50 mcg/dL 09/13/2023 10:12 AM [facility] Blood Venipuncture / Unknown 09/13/2023 9:29 AM BREADING MACHINE TENDER 09/13/2023 9:29 AM BREADING MACHINE TENDER [facility] - 09/13/2023 10:12 AM BREADING MACHINE TENDER Cortisol reference intervals are established for the [...] - 11.9 mcg/dL [facility] BLOOD ORDE [facility] [address], [facility] [address] [place] [address] * .Serum Creatinine (04/22/2023 12:28 PM CDT) Only the most recent of44 resultswithin the time period is included. [facility] Creatinine 0.80 0.51 - 0.95 mg/dL [place] Comment:Testing performed at [facility], [address] [place] [address] Blood 04/22/2023 12:2 8 PM CDT 04/22/2023 12:29 PM CDT [facility] 04/22/2023 1:04 PM CDT Coordinate all on same day. Ok to schedule 1-2 weeks following 04/14 to coordinate appts Winter Luu MD LAB BLOOD ORDERABL ES [place] [id number] [place] [phone] * (ABNORMAL) .CBC (04/22/2023 12:28 PM CDT) Only the most recent of44 resultswithin the time period is included. [facility] WBC 6.5 4.0 - 11.0 K/uL [place] Comment:All components of th e CBC performed at [facility], [address] [place] [address] RBC 4.39 4.00 - 5.50 M/uL [place] Comment:All components of th e CBC performed at [facility], [address] [place], [place] [id number] Hgb 14.3 12.0 - 16.0 gm/dL [place] Comment:As part of CBC or as an individual orderable testing performed at [facility], [address] [place] [address] Hct 43.7 37.0 - 47.0 % [place] Comment:As part of CBC testi ng performed at [facility], [address] [place] [address] MCV 100(H) 82 - 98 fL [place] Comment:As part of CBC testi ng performed at [facility], [address] [place], [place] [id number] MCH 32.6(H) 27.0 - 31.0 pg [place] Comment:As part of CBC testi ng performed at [facility], [address] [place], [place] [id number] MCHC 32.7 31.0 - 36.0 gm/dL [place] Comment:As part of CBC testi ng performed at [facility], [address] [place], [place] [phone] RDW-SD 45.6 35.1 - 46.3 fL [place] Comment:As part of CBC testi ng performed at [facility], [address] [place] [address] RDW-CV 12.1 12.0 - 15.5 % [place] Comment:As part of CBC testi ng performed at [facility], [address] [place] [address] Platelet count 150 140 - 440 K/uL [place] Comment:As part of CBC or an individual orderable testing performed at [facility], [address] [place] [address] MPV 9.6 4.0 - 10.4 fL [place] Comment:As part of CBC testi ng performed at [facility], [address] [place] [address] Blood 04/22/2023 12:2 8 PM CDT 04/22/2023 12:29 PM CDT Narrative [place] - 04/22/2023 12:33 PM CDT Coordinate all on same day. Ok to schedule 1-2 weeks following 04/14 to coordinate appts Winter Luu MD LAB BLOOD ORDERABL ES [address], [facility] [address] [place] [address] * Glomerular Filtration Rate (04/22/2023 12:28 PM CDT) Only the most recent of44 resultswithin the time period is included. eGFR 86 >=60 mL/min/1.7 3 sq. m [place] Comment: The eGFRcr is calculated with the [...] fulfill criteria for CKD. Testing performed at [facility], [address] [place] [address] Blood 04/22/2023 12:2 8 PM CDT 04/22/2023 12:29 PM CDT Narrative [place] - 04/22/2023 1:04 PM CDT Coordinate all on same day. Ok to schedule 1-2 weeks following 04/14 to coordinate appts Winter Luu MD LAB BLOOD ORDERABL ES [address], [facility] [address] [place] [address] * (ABNORMAL) Differential (04/22/2023 12:28 PM CDT) Only the most recent of44 resultswithin the time period is included. Neutrophil % 86.1(H) 42.0 - 66.0 % [place] Comment:All components of th e Differential performed at [facility], [address] [place] [address] Lymphocyte % 10.9(L) 24.0 - 44.0 % [place] Comment:As part of the Diffe rential testing performed at [facility], [address] [place] [address], [place] [address] Monocyte % 2.3 2.0 - 7.0 % [place] Comment:As part of the Diffe rential testing performed at [facility], [address] [place] [address], [place] [address] Eosinophil % 0.2(L) 1.0 - 4.0 % [place] Comment:As part of the Diffe rential testing performed at [facility], [address] [place] [address], [place] [address] Basophil % 0.2 0.0 - 1.0 % [place] Comment:As part of the Diffe rential testing performed at [facility], [address] [place] [address], [place] [address] IGRE % 0.3 0.0 - 0.4 % [place] Comment: IGRE % count includes Metamyelocytes, Myelocytes, and Promyelocytes. As part of the Differential testing performed at [facility], [address] [place] [address], [place] [address] Neutrophil Abs 5.62 1.70 - 7.30 K/uL [place] Comment:As part of the Diffe rential testing performed at [facility], [address] [place] [address], [place] [address] Lymphocyte Abs 0.71(L) 1.00 - 4.80 K/uL [place] Comment:As part of the Diffe rential testing performed at [facility], [address] [place] [address], [place] [address] Monocyte Abs 0.15 0.08 - 0.70 K/uL [place] Comment:As part of the Diffe rential testing performed at [facility], [address] [place] [address], [place] [address] Eosinophil Abs 0.01(L) 0.04 - 0.40 K/uL [place] Comment:As part of the Diffe rential testing performed at [facility], [address] [place] [address], [place] [address] Basophil Abs 0.01 0.00 - 0.10 K/uL [place] Comment:As part of the Diffe rential testing performed at [facility], [address] [place] [address], [place] [address] IG Abs 0.02 0.00 - 0.04 K/uL [place] Comment:As part of the Diffe rential testing performed at [facility], [address] [place] [address], [place] [address] Blood 04/22/2023 12:2 8 PM CDT 04/22/2023 12:[address] [facility] - 04/22/2023 12:33 PM CDT Coordinate all on same day. Ok to schedule 1-2 weeks following 04/14 to coordinate appts Winter Luu MD LAB BLOOD ORDERABL ES [address], [facility] [address] [place] [address] * BUN (04/22/2023 12:28 PM CDT) Only the most recent of44 resultswithin the time period is included. BUN 12 6 - 23 mg/dL [place] Comment:Testing performed at [facility], [address] [place] [address] Blood 04/22/2023 12:2 8 PM CDT 04/22/2023 12:[address] [facility] - 04/22/2023 1:04 PM CDT Coordinate all on same day. Ok to schedule 1-2 weeks following 04/14 to coordinate appts Winter Luu MD LAB BLOOD ORDERABL ES [address], [facility] [address] [place] [address] * (ABNORMAL) Electrolyte Panel (04/22/2023 12:28 PM CDT) Only the most recent of45 resultswithin the time period is included. Sodium Lvl 135(L) 136 - 145 mEq/L [place] Comment:Testing performed at [facility], [address] [place] [address] Potassium Lvl 4.7 3.5 - 5.1 mEq/L [place] Comment:Testing performed at [facility], [address] [place] [address] Chloride 96(L) 98 - 107 mEq/L [place] Comment:Testing performed at [facility], [address] [place] [address], [place] [address] CO2 21(L) 22 - 29 mEq/L [place] Comment:Testing performed at [facility], [address] [place] [address] Anion Gap 18(H) 4 - 14 mEq/L [place] Comment:Testing performed at [facility], [address] [place] [address] Blood 04/22/2023 12:2 8 PM CDT 04/22/2023 12:29 PM CDT Narrative [place] - 04/22/2023 1:04 PM CDT Coordinate all on same day. Ok to schedule 1-2 weeks following 04/14 to coordinate appts Winter Luu MD LAB BLOOD ORDERABL ES Performing Organization Address City/State/[facility] Co de Phone Number [address], [address] [address] [place] [address] * Fractionated Bilirubin (03/11/2023 11:15 AM CDT) Only the most recent of24 resultswithin the time period is included. Bili Total <0.3 <=1.2 mg/dL [place] Comment: Direct and indirect bilirubin will not be reported when Total bilirubin result is <0.3 mg/dL Indocyanine Green (ICG) may cause falsely elevated bilirubin results. Total and direct bilirubin must not be measured from samples containing indocyanine green. False elevation of total bilirubin can be seen in patients with IgG concentrations above 28 g/L. Testing performed at [facility], [address] [place] [address] Blood 03/11/2023 11:1 5 AM CDT 03/11/2023 11:[address] [facility] - 03/11/2023 11:40 AM CDT Follow up at 1120, lab prior and infusion after Lorena Hdez PRODUCTION ASSEMBLY OPERATOR [place] [address] * (ABNORMAL) ALT (03/11/2023 11:15 AM CDT) Only the most recent of24 resultswithin the time period is included. ALT 40(H) <=33 U/L [place] Comment:Testing performed at [facility], [address] [place] [address] Blood 03/11/2023 11:1 5 AM CDT 03/11/2023 11:[address] [facility] - 03/11/2023 11:40 AM CDT Follow up at 1120, lab prior and infusion after Lorena Hdez APRN LAB BLOOD ORDER [place] [address] [address] * Aspartate Aminotransferase (03/11/2023 11:15 AM CDT) Only the most recent of24 resultswithin the time period is included. AST 26 <=32 U/L [place] Comment:Testing performed at [facility], [address] [place] [address] Blood 03/11/2023 11:1 5 AM CDT 03/11/2023 11:[address] [facility] - 03/11/2023 11:40 AM CDT Follow up at 1120, lab prior and infusion after Lorena Hdez APRN LAB BLOOD ORDER [place] [address], [place] [address] * Total Protein (03/11/2023 11:15 AM CDT) Only the most recent of24 resultswithin the time period is included. [facility] Total Protein 7.0 6.4 - 8.3 g/dL [place] Comment:Testing performed at [facility], [address] [place] [address] Blood 03/11/2023 11:1 5 AM CDT 03/11/2023 11:[address] [facility] - 03/11/2023 11:40 AM CDT Follow up at 1120, lab prior and infusion after Lorena Hdez APRN LAB BLOOD ORDER [place] Performing Organization Address City/[facility]/ZIP Co de Phone Number [place] [phone] * (ABNORMAL) Alkaline Phosphatase (03/11/2023 11:15 AM CDT) Only the most recent of24 resultswithin the time period is included. [facility] Alk Phos 107(H) 35 - 104 U/L [place] Comment:Testing performed at [facility], [address] [place] [address] Blood 03/11/2023 11:1 5 AM CDT 03/11/2023 11:[address] [facility] - 03/11/2023 11:40 AM CDT Follow up at 1120, lab prior and infusion after Lorena Hdez APRN LAB BLOOD ORDER GOD[place] [address] [place] [address] * (ABNORMAL) Magnesium Level (03/11/2023 11:15 AM CDT) Only the most recent of42 resultswithin the time period is included. Magnesium 1.4(L) 1.6 - 2.6 mg/dL [place] Comment:Testing performed at [facility], [address] [place] [address] Blood 03/11/2023 11:1 5 AM CDT 03/11/2023 11:16 AM CDT Narrative [place] - 03/11/2023 11:40 AM CDT Follow up at 1120, lab prior and infusion after Lorena Hdez APRN LAB BLOOD ORDER [place] Performing Organization Address City/[facility]/ZIP Co de Phone Number [place] [address] [place] [address] * (ABNORMAL) Glucose Level (03/11/2023 11:15 AM CDT) Only the most recent of43 resultswithin the time period is included. Glucose Level 324(H) 70 - 99 mg/dL [place] Comment: Effective 05/27/16, the glucose reference intervals have been updated based on [place] [employer] guidelines (Standards of Medical Care in Diabetes 2016. Diabetes Care 2016; 39: S13-S22). Fasting blood glucose: Normal: 70-99 mg/dL Impaired fasting glucose (increased risk for diabetes or pre-diabetes): 100- 125 mg/dL Diabetes mellitus: >/=126 mg/dL Random blood glucose: Normal: 70-199 mg/dL Note: Random glucose >100 mg/dL is associated with increased risk for diabetes Testing performed at [facility], [address] [place] [address] Blood 03/11/2023 11:1 5 AM CDT 03/11/2023 11:16 AM CDT Narrative [place] - 03/11/2023 11:40 AM CDT Follow up at 1120, lab prior and infusion after Lorena Hdez APRN LAB BLOOD ORDER [place] [address], [facility] [id number] [place] [address] * Calcium Level (03/11/2023 11:15 AM CDT) Only the most recent of43 resultswithin the time period is included. Calcium Lvl 9.3 8.4 - 10.2 mg/dL [place] Comment:Testing performed at [facility], [address] [place] [address] Blood 03/11/2023 11:1 5 AM CDT 03/11/2023 11:[address] [facility] - 03/11/2023 11:40 AM CDT Follow up at 1120, lab prior and infusion after Lorena Hdez APRN LAB BLOOD ORDER GODWIN [address] [address] * Albumin Level (03/11/2023 11:15 AM CDT) Only the most recent of24 resultswithin the time period is included. Albumin Lvl 3.9 3.5 - 5.2 gm/dL [place] Comment:Testing performed at [facility], [address] [place] [address] Blood 03/11/2023 11:1 5 AM CDT 03/11/2023 11:[address] [facility] - 03/11/2023 11:40 AM CDT Follow up at 1120, lab prior and infusion after Lorena Hdez APRN LAB BLOOD ORDER GODWIN [facility] [address] [facility], [facility] [address] [place] [address] * (ABNORMAL) POC Glucose Screen (02/16/2023 12:02 PM CDT) Only the most recent of154 resultswithin the time period is included. [facility] POC Glucose 211(H) 70 - 99 [...] Sample Type Capillary POC [facility] Performing Lab [facility] POC [place] Comment:[facility], [address] [place] [address]; Carpet Yarn Winder Operator: Chula Jacob MD; Waived Point of Care Testing - Gabrielle Mueller MD Blood 02/16/2023 12:0 2 PM CDT 02/16/2023 12:02 PM CDT Ashleigh Rangel MD POCT LUIS [facility] [place] - DEVICE POC [facility] Unless otherwise noted, all lab tests performed by: Division of Pathology and Laboratory Medicine [address] [place] [address] * (ABNORMAL) Anti-Xa Level (02/16/2023 11:13 AM CDT) [facility] Anti-Xa Level 1.45(H) 0.00 - 0.10 unit/mL [facility] [place] Comment: Anti-Xa Level (Heparin assay for Low [...] Ref: Chest 2008; 133;141S-1598S Hep Type Enoxaparin [facility] Blood 02/16/2023 11:1 3 AM CDT 02/16/2023 11:21 AM CDT Narrative [facility] - 02/16/2023 1:11 PM CDT Nurse please coordinate with lab to drawn Anti-Xa level (low molecular weight heparin level) 4 hours after 02/16/23 morning enoxaparin dose is given. Angeli Wang MD LAB BLOOD ORD ERABLES Performing Organization Address City/[facility]/ZIP Co de Phone Number [facility] Unless otherwise noted, all lab tests performed by: Division of Pathology and Laboratory Medicine [address] [place] [address] * Phosphorus Level (02/16/2023 6:15 AM CDT) Only the most recent of40 resultswithin the time period is included. Phosphorus 4.3 2.5 - 4.5 mg/dL [facility] Blood 02/16/2023 6:15 AM CDT 02/16/2023 6:59 AM CDT DEEPTI Harrell APRN LAB BL OOD ORDERABLES [facility] Unless otherwise noted, all lab tests performed by: Division of Pathology and Laboratory Medicine [address] [place] [address] * General Laboratory Add-On Test (02/12/2023 9:33 AM CDT) Only the most recent of4 resultswithin the time period is included. Ordered Test Added [facility] Test Needed procalcitonin [facility] Existing 02/12/2023 9:33 AM CDT 02/12/2023 9:34 AM CDT Kimberli GALE LAB BLOOD ORDERABLES Performing Organization Address City/[facility] Co de Phone Number [facility] Unless otherwise noted, all lab tests performed by: Division of Pathology and Laboratory Medicine [address] [place] [address] * (ABNORMAL) Procalcitonin (02/12/2023 5:34 AM CDT) Only the most recent of4 resultswithin the time period is included. Procalcitonin 0.38(H) <=0.08 ng/mL [facility] Comment: Procalcitonin > 2.00 ng/mL: Procalcitonin levels [...] with extended dilution as it exceeds the ui developer's recommended limit. Caution should be exercised when interpreting such values and done in conjunction with clinical context. Blood 02/12/2023 5:34 AM CDT 02/12/2023 6:18 AM CDT DEEPTI Harrell APRN LAB BL OOD ORDERABLES [facility] Unless otherwise noted, all lab tests performed by: Division of Pathology and Laboratory Medicine [address] [place] [address] * CT Maxillofacial Area with Contrast (02/11/2023 [...] included. CK 125 26 - 192 U/L [facility] Blood 02/09/2023 5:37 AM CDT 02/09/2023 6:08 AM CDT Shelby GALE LAB BLOOD ORDERABLES [facility] Unless otherwise noted, all lab tests performed by: Division of Pathology and Laboratory Medicine [address] [place] [address] * US Arm Venous Doppler Bilateral (02/08/2023 [...] report. Derrick Gill MD IMG US ORDERABLES * Echocardiogram 2D Complete with [...] imaging was not performed in this study. ([facility] Study). Diastology: Indeterminate. Right Ventricle: The right [...] imaging was not performed in this study. ([facility] Study). Diastology: Indeterminate. Right Ventricle: The right [...] 11.6 E/e' (lat): 9.2E/e' (sept): 15.7 Branden Cisneros Estella GRIFFIN CV ECHO ORDERABLES ISCV * HIV-1/2 Antigen and Antibodies, Fourth [...] purpose. For additional information please refer to http://education.eOriginal.Car reviews/faq/KBG594 (This link is being provided for informational/ educational purposes only.) The performance of this assay has not been clinically validated in patients less than 2 years old. Lab test performed by: Lab Mnemonic: [facility] [address] [phone] JOSE ELIAS MELÉNDEZ MD Blood 02/07/2023 6:52 AM CDT 02/07/2023 7:22 AM CDT Branden Soria MD LAB BLOOD ORDERABLES Performing Organization Address City/[facility]/ZIP Co de Phone Number [facility] * Hepatitis C Virus Ab (02/07/2023 6:52 AM CDT) Only the most recent of2 resultswithin the time period is included. Pathologist [facility] HCVAb. Non Reactive Non Reactive [facility] Comment: Antibody detection in the immunocompromised and immunosuppressed population may be delayed or absent entirely. Therefore serial testing, correlation with other clinical findings, and supplemental testing (if available) should be taken into consideration when interpreting the results. Blood 02/07/2023 6:52 AM CDT 02/07/2023 8:32 AM CDT Branden Soria MD LAB BLOOD ORDERABLES Performing Organization Address [facility] de Phone Number [facility] Unless otherwise noted, all lab tests performed by: Division of Pathology and Laboratory Medicine [address] [place] [address] * Hepatitis B Total Ig Core Ab (SCREENING) (anti-HBc total Ig; HBcAb total Ig) (02/07/2023 6:52 AM CDT) Pathologist [facility] HBcAb. Non Reactive Non Reactive [facility] Blood 02/07/2023 6:52 AM CDT 02/07/2023 8:32 AM CDT Branden Soria MD LAB BLOOD ORDERABLES Performing Organization Address [facility] Co de Phone Number [facility] Unless otherwise noted, all lab tests performed by: Division of Pathology and Laboratory Medicine [address] [place] [address] * Hepatitis B Surface Ag (02/07/2023 6:52 AM CDT) HBsAg. Non Reactive Non Reactive [facility] Blood 02/07/2023 6:52 AM CDT 02/07/2023 8:32 AM CDT Branden Soria MD LAB BLOOD ORDERABLES [facility] Unless otherwise noted, all lab tests performed by: Division of Pathology and Laboratory Medicine [address] [place] [address] * Blood Culture (02/07/2023 6:52 AM CDT) Only the most recent of6 resultswithin the time period is included. Final Report No growth [facility] Blood (Venipuncture-Ri ght) 02/07/2023 6:52 AM CDT 02/07/2023 7:43 AM CDT Comment:arm Tim Nguyen MD MICROBIOLOGY - GENER AL ORDERABLES Performing Organization Address [facility] Co de Phone Number [facility] Unless otherwise noted, all lab tests performed by: Division of Pathology and Laboratory Medicine [address] [place] [address] * Transferrin with TIBC (02/07/2023 6:52 AM CDT) Transferrin 205 200 - 360 mg/dL [facility] TIBC 287 250 - 450 mcg/dL [facility] Blood 02/07/2023 6:52 AM CDT 02/07/2023 7:07 AM CDT Branden Soria MD LAB BLOOD ORDERABLES Performing Organization Address City/[facility]/ZIP Co de Phone Number [facility] Unless otherwise noted, all lab tests performed by: Division of Pathology and Laboratory Medicine [address] [place] [address] * Iron Level (02/07/2023 6:52 AM CDT) Iron 51 37 - 145 mcg/dL [facility] Blood 02/07/2023 6:52 AM CDT 02/07/2023 7:07 AM CDT Branden Soria MD LAB BLOOD ORDERABLES [facility] Unless otherwise noted, all lab tests performed by: Division of Pathology and Laboratory Medicine [address] [place] [address] * (ABNORMAL) Hemoglobin A1c (02/07/2023 6:52 AM CDT) Only the most recent of2 resultswithin the time period is included. A1C 10.2(H) 4.3 - 5.6 % [facility] Comment: HbA1c values >=6.5% are diagnostic of diabetes mellitus. Diagnosis should be confirmed by repeat testing. Therapeutic Action suggested: >8.0% HbA1c; Goal of therapy: <7.0% HbA1c Blood 02/07/2023 6:52 AM CDT 02/07/2023 7:09 AM CDT Branden Soria MD LAB BLOOD ORDERABLES Performing Organization Address [facility] Co de Phone Number [facility] Unless otherwise noted, all lab tests performed by: Division of Pathology and Laboratory Medicine [address] [place] [address] * (ABNORMAL) Ferritin Level (02/07/2023 6:52 AM CDT) Ferritin Lvl 320(H) 13 - 150 ng/mL [facility] Blood 02/07/2023 6:52 AM CDT 02/07/2023 7:07 AM CDT Branden Soria MD LAB BLOOD ORDERABLES [facility] Unless otherwise noted, all lab tests performed by: Division of Pathology and Laboratory Medicine [address] [place] [address] * (ABNORMAL) Lipid Panel (02/07/2023 6:52 AM CDT) Chol 137 <=199 mg/dL [facility] Comment: ATP III Classification of Total Cholesterol Primary Target of Therapy (in mg/dL): <200 Desirable 200-239 Borderline high >=240 High Trig 184(H) <=149 mg/dL [facility] Comment: ATP III Classification of Serum Triglycerides Primary Target of Therapy (in mg/dL): <150 Normal 150-199 Borderline high 200-499 High >=500 Very high Non-fasting triglycerides >200 mg/dL may be followed up with a fasting Lipid Panel. Calculated LDL-C may be falsely decreased when non-fasting triglycerides >200 mg/dL. HDL 27(L) >=40 mg/dL [facility] LDL 73 <=100 mg/dL [facility] Comment: ATP III Classification of LDL Cholesterol Primary Target of Therapy (in mg/dL): <100 Optimal 100-129 Near optimal/above optimal 130-159 Borderline high 160-189 High >=190 Very high VLDL 37 mg/dL [facility] Blood 02/07/2023 6:52 AM CDT 02/07/2023 7:07 AM CDT Branden Soria MD LAB BLOOD ORDERABLES [facility] Unless otherwise noted, all lab tests performed by: Division of Pathology and Laboratory Medicine [facility] [place] [address] * Clostridium Difficile DNA Path Review (02/07/2023 5:18 AM CDT) C diff DNA DC Reviewed and Electronically signed by Pathologist: PATRICIA CHAVEZ MD #[id number] [facility] Comment: C. difficile Toxin DNA (Primary Method) [...] collected for repeat testing. MD Suzie BARRON [id number] Dictated by: MD Suzie BARRON [id number] Dictated Date/Time: 02.07.2023 16:35 PM CDT Transcribed Date/Time: 02.07.2023 16:35 PM CDT Electronically Signed By: MD Suzie BARRON [id number] on 02.07.2023 16:35 PM Stool 02/07/2023 5:18 AM CDT 02/07/2023 8:07 AM CDT Branden Soria MD MICROBIOLOGY - GENER AL ORDERABLES Performing Organization Address City/[facility] de Phone Number [facility] Unless otherwise noted, all lab tests performed by: Division of Pathology and Laboratory Medicine [address] [place] [id number] * Clostridium Difficile DNA Assay (02/07/2023 5:18 AM CDT) Pathologist [facility] C difficile DNA Negative Negative [facility] C difficle Toxin EIA Test Not Performed Negative [facility] C difficile Interpretation C. difficile DNA detection was negative making C. difficile infection highly unlikely in this patient. EIA not performed. [facility] Stool 02/07/2023 5:18 AM CDT 02/07/2023 6:14 AM CDT Branden Soria MD MICROBIOLOGY - GENER AL ORDERABLES Performing Organization Address City/[facility] de Phone Number [facility] Unless otherwise noted, all lab tests performed by: Division of Pathology and Laboratory Medicine [address] [place] [address]42 * Gastrointestinal Multiplex Panel (02/07/2023 5:16 AM CDT) Pathologist [facility] Campylobacter Not Detected Not Detected [facility] C difficile DNA (GI Multi Panel) Refer to separate C. difficile DNA Assay for results [facility] Plesiomonas shigelloides Not Detected Not Detected [facility] Salmonella Not Detected Not Detected [facility] Vibrio Not Detected Not Detected [facility] Vibrio cholerae Not Detected Not Detected [facility] Yersinia enterocolitica Not Detected Not Detected [facility] Enteroaggregative E. coli (EAEC) Not Detected Not Detected [facility] Enteropathogenic E. coli (EPEC) Not Detected Not Detected [facility] Enterotoxigenic E. coli (ETEC) Not Detected Not Detected [facility] Shiga-like toxin-producing E. col (STEC) Not Detected Not Detected [facility] E. coli O157 Not Applicable Not Detected [facility] Shigella/Enteroinvas ishmael E. coli (EIEC) Not Detected Not Detected [facility] Cryptosporidium Not Detected Not Detected [facility] Cyclospora cayetanensis Not Detected Not Detected [facility] Entamoeba histolytica Not Detected Not Detected [facility] Giardia lamblia Not Detected Not Detected [facility] Adenovirus F 40/41 Not Detected Not Detected [facility] Astrovirus Not Detected Not Detected [facility] Norovirus GI/GII Not Detected Not Detected [facility] Rotavirus A Not Detected Not Detected [facility] Sapovirus (I, II, IV and V) Not Detected Not Detected [facility] Stool 02/07/2023 5:16 AM CDT 02/07/2023 6:13 AM CDT Branden Soria MD MICROBIOLOGY - GENER AL ORDERABLES [facility] Unless otherwise noted, all lab tests performed by: Division of Pathology and Laboratory Medicine [address] [place] [address] * Gastrointestinal Multiplex Panel Path Review (02/07/2023 5:16 AM CDT) GIMP DC Reviewed and Electronically signed by Pathologist: PATRICIA CHAVEZ MD #[id number] [facility] Comment: Performed by real-time PCR methodology. This [...] Clinical correlation is recommended. MD Suzie BARRON [id number] Dictated by: MD Suzie BARRON [id number] Dictated Date/Time: 02.07.2023 16:40 PM CDT Transcribed Date/Time: 02.07.2023 16:40 PM CDT Electronically Signed By: MD Suzie BARRON [id number] on 02.07.2023 16:40 PM Stool 02/07/2023 5:16 AM CDT 02/07/2023 6:13 AM CDT Branden Soria MD LAB BLOOD ORDERABLES Performing Organization Address City/[facility]/ZIP Co de Phone Number [facility] Unless otherwise noted, all lab tests performed by: Division of Pathology and Laboratory Medicine [address] [place] [address]20 * EKG, 12-Lead (Portable) (02/07/2023) Only the most recent of2 resultswithin the time period is included. Romana Guy MD ECG ORDERABLES DARI IECG * NT-Pro BNP (In-House) (02/06/2023 3:05 AM CDT) Only the most recent of2 resultswithin the time period is included. NT ProBNP 83 <=125 pg/mL DE MD [facility] Blood 02/06/2023 3:05 AM CDT 02/06/2023 3:20 AM CDT Cathie Ayo Meneses PRODUCTION ASSEMBLY OPERATOR,AGACNP LAB BLOOD OR DERABLES Performing Organization Address [facility] Co de Phone Number [facility] Unless otherwise noted, all lab tests performed by: Division of Pathology and Laboratory Medicine [address] [place] [address] * CRP (02/06/2023 3:05 AM CDT) Only the most recent of3 resultswithin the time period is included. [facility] CRP 65.62 mg/L [facility] Comment: Reference ranges for HS CRP assay are as follows: Reference ranges when used to assess cardiac risk: <1.00 mg/L Low cardiovascular risk 1.00-3.00 mg/L Average cardiovascular risk >3.00 mg/L High cardiovascular risk. Reference ranges when used to assess inflammatory responses: Less than or equal to 10.00 mg/L. Blood 02/06/2023 3:05 AM CDT 02/06/2023 3:20 AM CDT Cathiekeenan Junel PRODUCTION ASSEMBLY OPERATOR,AGACNP LAB BLOOD OR DERABLES Performing Organization Address [facility] Co de Phone Number [facility] Unless otherwise noted, all lab tests performed by: Division of Pathology and Laboratory Medicine [address] [place] [address]991 * Troponin T (In-House) (02/06/2023 1:09 AM CDT) Only the most recent of2 resultswithin the time period is included. [facility] Troponin T 10 <=19 ng/L [facility] Comment: < 19 ng/L Suggest retest at [...] MD LAB BLOOD ORDERABLES Performing Organization Address [facility] Co de Phone Number [facility] Unless otherwise noted, all lab tests performed by: Division of Pathology and Laboratory Medicine [address] [place] [address] 687[address] * (ABNORMAL) Urine Culture (02/06/2023 12:40 AM CDT) Only the most recent of3 resultswithin the time period is included. Final Report 10 - 50,000 cfu/ml Normal site isabel present. Generally of low significance. Correlate with clinical data and culture history. (A) [facility] Urine 02/06/2023 12:4 0 AM CDT 02/06/2023 2:54 AM CDT Irina Houston APRN MICROBIOLOGY - GENE RAL ORDERABLES Performing Organization Address [facility] Co de Phone Number [facility] Unless otherwise noted, all lab tests performed by: Division of Pathology and Laboratory Medicine [address] [place] [address] * aPTT (02/05/2023 8:26 PM CDT) Only the most recent of5 resultswithin the time period is included. aPTT 28.5 22.8 - 34.2 second(s) [facility] Blood 02/05/2023 8:26 PM CDT 02/05/2023 8:29 PM CDT Deneen Guevara MD LAB BLOOD ORDERABLES Performing Organization Address [facility] Co de Phone Number [facility] Unless otherwise noted, all lab tests performed by: Division of Pathology and Laboratory Medicine [address] [place] [address]11 * VB Lactate (02/05/2023 8:26 PM CDT) Only the most recent of4 resultswithin the time period is included. V Lactate 1.2 0.5 - 1.6 mmol/L [facility] Blood 02/05/2023 8:26 PM CDT 02/05/2023 8:29 PM CDT Deneen Guevara MD LAB BLOOD ORDERABLES Performing Organization Address City/[facility]/ZIP Co de Phone Number [facility] Unless otherwise noted, all lab tests performed by: Division of Pathology and Laboratory Medicine [address] [place] [address] * (ABNORMAL) Prothrombin Time with INR (02/05/2023 8:26 PM CDT) Only the most recent of5 resultswithin the time period is included. Pathologist [facility] PT 14.7(H) 11.9 - 14.1 second(s) [facility] INR 1.16(H) 0.89 - 1.10 [facility] Blood 02/05/2023 8:26 PM CDT 02/05/2023 8:29 PM CDT Deneen Guevara MD LAB BLOOD ORDERABLES Performing Organization Address [facility] de Phone Number [facility] Unless otherwise noted, all lab tests performed by: Division of Pathology and Laboratory Medicine [address] [place] [address]366 * (ABNORMAL) D Dimer (02/05/2023 8:26 PM CDT) Pathologist [facility] D-Dimer 3.04(H) 0.10 - 0.50 mcg/ml FEU [facility] Comment: The cut off value for exclusion of venous thromboembolism is <0.51 mcg/mL FEUs (fibrinogen equivalent units). Blood 02/05/2023 8:26 PM CDT 02/05/2023 8:29 PM CDT Deneen Guevara MD LAB BLOOD ORDERABLES Performing Organization Address City/[facility] Co de Phone Number [facility] Unless otherwise noted, all lab tests performed by: Division of Pathology and Laboratory Medicine [address] [place] [address]86 * X-ray Abdomen AP (02/05/2023 6:59 PM [...] included. COVID19 (SARS-CoV-2) Not Detected Not Detected [facility] COVID19 SARS Indication Inpatient Admission [facility] Covid 19 Comment See Note [facility] Comment: The ruby SARS-CoV-2 nucleic acid test [...] fact sheet for patients provided by the ui developer ([employer]) can be reviewed at: https://www.fda.gov/media/319118/download. A fact sheet for Health Care providers is provided by the ui developer ([employer]) and can be reviewed at: https://www.fda.gov/media/912396/download Results must be interpreted within the context [...] and high-complexity tests. The Microbiology Laboratory at [facility], CLIA Accreditation #[id number] and CAP Accreditation #[id number], verified the performance characteristics of this assay. Internal controls are used to monitor all stages of the test process. Nasopharyngeal Swab 02/06/20 5:09 PM CDT 02/05/2023 5:17 PM CDT Amanda Proctor MD MICROBIOLOGY - GENER AL ORDERABLES Performing Organization Address City/[facility]/ZIP Co de Phone Number [facility] Unless otherwise noted, all lab tests performed by: Division of Pathology and Laboratory Medicine [address] [place] [address]2559 * Lipase (02/05/2023 3:30 PM CDT) Only the most recent of4 resultswithin the time period is included. Lipase Lvl 18 13 - 60 U/L DE MD Benjamin [facility] Blood 02/05/2023 3:30 PM CDT 02/05/2023 3:39 PM CDT Amanda Proctor MD LAB BLOOD ORDERABLES Performing Organization Address City/[facility]/ZIP Co de Phone Number [facility] Unless otherwise noted, all lab tests performed by: Division of Pathology and Laboratory Medicine [address] [place] [address] 6[address]99 * CKMB (02/05/2023 3:30 PM CDT) CK MB <2.0 <=5.3 ng/mL DE MD [facility] Blood 02/05/2023 3:30 PM CDT 02/05/2023 3:39 PM CDT Amanda Proctor MD LAB BLOOD ORDERABLES [facility] Unless otherwise noted, all lab tests performed by: Division of Pathology and Laboratory Medicine [address] [place] [address] 82790 * Amylase Level (02/05/2023 3:30 PM CDT) Only the most recent of2 resultswithin the time period is included. Pathologist [facility] Amylase Lvl 43 28 - 100 U/L [facility] Blood 02/05/2023 3:30 PM CDT 02/05/2023 3:39 PM CDT Amanda Proctor MD LAB BLOOD ORDERABLES Performing Organization Address [facility] Co de Phone Number [facility] Unless otherwise noted, all lab tests performed by: Division of Pathology and Laboratory Medicine [address] [place] [address] * (ABNORMAL) Urinalysis with Microscopic (02/05/2023 12:39 AM CDT) UA Color Morgan(A) Straw-Yel low [facility] UA Appear Cloudy(A) Clear [facility] UA Glucose 500(A) NEG mg/dL [facility] UA Bili NEG NEG [facility] UA Ketones 40(A) NEG mg/dL [facility] UA Spec Grav 1.021 1.003 - 1.035 [facility] UA Blood NEG NEG [facility] UA pH 6.0 5.0 - 9.0 [facility] UA Protein 20(A) NEG mg/dL [facility] UA Urobilinogen NEG NEG [facility] UA Nitrite NEG NEG [facility] UA Leuk Est NEG NEG [facility] UA WBC NOT SEEN 0 - 2 /HPF [facility] Comment: Some reporting parameters within the Urinalysis test have changed due to the implementation of new instrumentation in the [facility], allowing greater sensitivity of measurement. Urinalysis results reported by the [facility] using existing instrumentation, as well as Urinalysis testing performed manually or by backup methodology at the [facility] [place] will remain relatively unchanged. New reporting parameters and units will not be reported for all campuses. UA RBC 13(H) 0 - 2 /HPF [facility] UA Mucous NOT SEEN Not Seen-Trac e /HPF [facility] UA Bacteria NOT SEEN NOT SEEN /HPF [facility] UA Squam Epi OCC None-Occa sional /HPF [facility] Urine 02/05/2023 12:3 9 AM CDT 02/06/2023 12:42 AM CDT Irina Houston PRODUCTION ASSEMBLY OPERATOR URINE ORDERABLES [facility] Unless otherwise noted, all lab tests performed by: Division of Pathology and Laboratory Medicine [address] [place] [address] 6[address]32 * Tip Verification Central Vascular Access Device (01/29/2023 3:08 PM CDT) Narrative Justo Banuelos RN - 01/29/2023 3:08 PM CDT Justo Banuelos RN 01/29/2023 3:08 PM Central Vascular Access Device Tip Verification Performed by: Justo Banuelos RN Authorized by: Rashaun Wiley MD [employer] Date device placed: 01/29/2023 Placed by: Justo Banuelos RN Device placement location: [facility] Catheter Type: PICC Catheter lumen: Double [...] cava without evidence ofcomplication. Rashaun Wiley MD 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 Informed consent obtained prior to procedure, the risks, benefits, and alternative discussed with patient/designated promotional representative. Pre-procedure the patient was alert. Time [...] completely dried prior to procedure according to ui developer guidelines. Maximum sterile barriers were used- sterile [...] placement. placement and tip verified using tip window shade cutter and mounter and placement and tip verified by x-ray [...] resultswithin the time period is included. Pathologist [facility] Hgb 13.3 12.0 - 16.0 gm/dL [facility] Blood 01/28/2023 8:24 AM CDT 01/28/2023 8:30 AM CDT Mana Powers APRN LAB BLOOD ORDERABLES Performing Organization Address [facility] de Phone Number [facility] Unless otherwise noted, all lab tests performed by: Division of Pathology and Laboratory Medicine [address] [place] [address] [phone] * Hematocrit (01/28/2023 8:24 AM CDT) Only the most recent of3 resultswithin the time period is included. Pathologist [facility] Hct 40.6 37.0 - 47.0 % [facility] Blood 01/28/2023 8:24 AM CDT 01/28/2023 8:30 AM CDT Mana Powers APRN LAB BLOOD ORDERABLES Performing Organization Address [facility] de Phone Number [facility] Unless otherwise noted, all lab tests performed by: Division of Pathology and Laboratory Medicine [address] [place] [address] [phone] * (ABNORMAL) Urinalysis Microscopic Exam (01/26/2023 10:45 PM CDT) Pathologist [facility] UA WBC 6(H) 0 - 2 /HPF [facility] Comment: Some reporting parameters within the Urinalysis test have changed due to the implementation of new instrumentation in the [facility] [place], allowing greater sensitivity of measurement. Urinalysis results reported by the [facility] using existing instrumentation, as well as Urinalysis testing performed manually or by backup methodology at the [facility] [place] will remain relatively unchanged. New reporting parameters and units will not be reported for all campuses. UA RBC <1 0 - 2 /HPF [facility] UA Mucous NOT SEEN Not Seen-Trac e /HPF [facility] UA Bacteria NOT SEEN NOT SEEN /HPF [facility] UA Squam Epi OCC None-Occa sional /HPF [facility] Urine 01/26/2023 10:4 5 PM CDT 01/26/2023 10:49 PM CDT Amanda Proctor MD LAB BLOOD ORDERABLES Performing Organization Address City/[facility]/ZIP Co de Phone Number [facility] Unless otherwise noted, all lab tests performed by: Division of Pathology and Laboratory Medicine [address] [place] [address] [phone] * (ABNORMAL) Urinalysis w/Microscopic if Indicated (01/26/2023 10:45 PM CDT) Only the most recent of2 resultswithin the time period is included. UA Color Straw Straw-Parmer ow [facility] UA Appear Clear Clear [facility] UA Glucose 500(A) NEG mg/dL [facility] UA Bili NEG NEG [facility] UA Ketones NEG NEG mg/dL [facility] UA Spec Grav 1.020 1.003 - 1.035 [facility] UA Blood NEG NEG [facility] UA pH 5.5 5.0 - 9.0 [facility] UA Protein 30(A) NEG mg/dL [facility] UA Urobilinogen NEG NEG [facility] UA Nitrite NEG NEG [facility] UA Leuk Est NEG NEG [facility] Urine 01/26/2023 10:4 5 PM CDT 01/26/2023 10:49 PM CDT Amanda Proctor MD URINE ORDERABLES [facility] Unless otherwise noted, all lab tests performed by: Division of Pathology and Laboratory Medicine [address] [place] [address] * (ABNORMAL) LDH (01/26/2023 2:44 PM CDT) Only the most recent of3 resultswithin the time period is included. Pathologist [facility] LDH 289(H) 135 - 214 U/L [facility] Comment:Results greater than 1651 U/L may not be reliable due to matrix effect with extended dilution as it exceeds the ui developer's recommended limit. Caution should be exercised when interpreting such values and done in conjunction with clinical context. Blood 01/26/2023 2:44 PM CDT 01/26/2023 3:07 PM CDT Amanda Proctor MD LAB BLOOD ORDERABLES [facility] Unless otherwise noted, all lab tests performed by: Division of Pathology and Laboratory Medicine [address] [place] [address] [phone] * (ABNORMAL) Controlled Substance Monitoring Panel, Urine (01/20/2023 12:37 PM CDT) Pathologist [facility] Urine Creatinine 55.1 mg/dL [facility] Urine Specific Daphne 1.014 [facility] Urine Ph 6.2 [facility] Urine Oxidants Negative Cutoff: 200 mg/L [facility] Urine Comment Normal [facility] U Barbiturates-Luu Negative Cutoff: 200 ng/mL [facility] U Cocaine Lvl-Guy Negative Cutoff: 150 ng/mL [facility] Comment: This cocaine immunoassay targets benzoylecgonine the primary metabolite of cocaine. U THC-Guy See Footnote(A) Cutoff: 50 ng/mL [facility] Comment: RESULT: Presumptive Positive This immunoassay targets [...] testing. Codeine Not Detected Cutoff: 25 ng/mL [facility] Comment:Tylenol 3 Hetloux-1-voms-glucuron geovani Not Detected Cutoff: 100 ng/mL [facility] Comment:Metabolite of codein e Morphine Not Detected Cutoff: 25 ng/mL [facility] Comment: Martha Mray, MS Contin; Also a minor metabolite (10%) of codeine and can be seen in low concentrations (<2,000 ng/mL) with poppy seed ingestion. Zzoqscot-2-tsvj-glucuro nide Not Detected Cutoff: 100 ng/mL [facility] Comment:Metabolite of morphi ne 6-monoacetylmorphine Not Detected Cutoff: 25 ng/mL [facility] Comment:Metabolite of heroin Hydrocodone Not Detected Cutoff: 25 ng/mL [facility] Comment: Lortab, [place], Vicodin; Also a very minor metabolite of codeine and impurity (<1%) of oxycodone. Norhydrocodone Not Detected Cutoff: 25 ng/mL [facility] Comment:Metabolite of hydroc odone Dihydrocodeine Not Detected Cutoff: 25 ng/mL [facility] Comment:Metabolite of hydroc odone Hydromorphone Not Detected Cutoff: 25 ng/mL [facility] Comment: Dilaudid, Exalgo; Also a metabolite of hydrocodone and a minor (<5%) metabolite of morphine. Kwbnxdvrznfba-0-tofw-gl ucuronide Not Detected Cutoff: 100 ng/mL [facility] Comment:Metabolite of hydrom orphone Oxycodone Present(A) Cutoff: 25 ng/mL [facility] Comment:Endocet, Percocet, O xycontin Noroxycodone Present(A) Cutoff: 25 ng/mL [facility] Comment:Metabolite of oxycod one Oxymorphone Not Detected Cutoff: 25 ng/mL [facility] Comment:Numorphan, Opana; Al so a metabolite of oxycodone. Kadkypnrfsh-6-hrwy-gluc uronide Not Detected Cutoff: 100 ng/mL [facility] Comment:Metabolite of oxymor phone and/or naloxone (nornaloxone) Noroxymorphone Present(A) Cutoff: 25 ng/mL [facility] Comment:Metabolite of oxymor phone and/or naloxone (nornaloxone) Fentanyl Not Detected Cutoff: 2 ng/mL [facility] Comment:Actiq, Duragesic, Fe ntora Norfentanyl Not Detected Cutoff: 2 ng/mL [facility] Comment:Metabolite of fentan yl Meperidine Not Detected Cutoff: 25 ng/mL [facility] Comment:Demerol Normeperidine Not Detected Cutoff: 25 ng/mL [facility] Comment:Metabolite of meperi dine Naloxone Not Detected Cutoff: 25 ng/mL [facility] Comment:Narcan Tnrxfbbq-0-pmbf-glucuro nide Not Detected Cutoff: 100 ng/mL [facility] Comment:Metabolite of naloxo ne U Methadone Not Detected Cutoff: 25 ng/mL [facility] Comment:Dolophine EDDP Not Detected Cutoff: 25 ng/mL [facility] Comment:Metabolite of methad one Propoxyphene Not Detected Cutoff: 25 ng/mL [facility] Comment:Darvon, Darvocet Norpropoxyphene Not Detected Cutoff: 25 ng/mL [facility] Comment:Metabolite of propox yphene Tramadol Not Detected Cutoff: 25 ng/mL [facility] Comment:Tradol, Ultram, Ultr acet O-desmethyltramadol Not Detected Cutoff: 25 ng/mL [facility] Comment:Metabolite of tramad ol Tapentadol Not Detected Cutoff: 25 ng/mL [facility] Comment:Nucynta Zaaeguoypz-vpyn-naageob nide Not Detected Cutoff: 100 ng/mL [facility] Comment:Metabolite of tapent adol Buprenorphine Not Detected Cutoff: 5 ng/mL [facility] Comment:Buprenex, Suboxone Norbuprenorphine Not Detected Cutoff: 5 ng/mL [facility] Comment:Metabolite of bupren orphine Norbuprenorphine Glucuronide Not Detected Cutoff: 20 ng/mL [facility] Comment:Metabolite of bupren orphine Opioid Interpretation See Footnote [facility] Comment: Test detected the presence of oxycodone and one of its metabolites (noroxycodone) along with noroxymorphone (metabolite of oxymorphone). Suspect use of oxymorphone and/or oxycodone within the past three days. Trace amounts of oxycodone can be found as an impurity in oxymorphone. ADDITIONAL INFORMATION This test was developed and its performance characteristics determined by [facility] in a manner consistent with CLIA requirements. This test has not been cleared or approved by the U.S. Food and Drug Administration. Alprazolam Urine Present(A) Cutoff: 10 ng/mL [facility] Comment:Xanax Alpha-Hydroxyalprazolam Urine Present(A) Cutoff: 10 ng/mL [facility] Comment:Metabolite of Alpraz olam Alpha-Hydroxyalprazolam Glucuronide Urine Present(A) Cutoff: 50 ng/mL [facility] Comment:Metabolite of Alpraz olam Chlordiazepoxide Urine Not Detected Cutoff: 10 ng/mL [facility] Comment:Librium Colbazam Urine Not Detected Cutoff: 10 ng/mL [facility] Comment:Frisium, Onfi N-Desmethylclobazam Urine Not Detected Cutoff: 200 ng/mL [facility] Comment:Metabolite of Clobaz am Clonazepam Urine Not Detected Cutoff: 10 ng/mL [facility] Comment:Klonopin, Rivotril 7-Aminoclonazepam Urine Not Detected Cutoff: 10 ng/mL [facility] Comment:Metabolite of Clonaz epam Diazepam Urine Not Detected Cutoff: 10 ng/mL [facility] Comment:Valium Nordiazepam Urine Not Detected Cutoff: 10 ng/mL [facility] Comment:Metabolite of Chlord iazepoxide, Diazepam, or Prazepam. Flunitrazepam Urine Not Detected Cutoff: 10 ng/mL [facility] Comment:Rohypnol 7-Aminoflunitrazepam Urine Not Detected Cutoff: 10 ng/mL [facility] Comment:Metabolite of Flunit razepam FlUrinerazepam Urine Not Detected Cutoff: 10 ng/mL [facility] Comment:Dalmane 2-Hydroxy Ethyl Flurazepam Urine Not Detected Cutoff: 10 ng/mL [facility] Comment:Metabolite of Fluraz epam Lorazepam Urine Not Detected Cutoff: 10 ng/mL [facility] Comment:Ativan Lorazepam Glucuronide Urine Not Detected Cutoff: 50 ng/mL [facility] Comment:Metabolite of Loraze chris Midazolam Urine Not Detected Cutoff: 10 ng/mL [facility] Comment:Versed Alpha-Hydroxy Midazolam Urine Not Detected Cutoff: 10 ng/mL [facility] Comment:Metabolite of Midazo lopes Oxazepam Urine Not Detected Cutoff: 10 ng/mL [facility] Comment: Serax; Also a metabolite of Chlordiazepoxide, Diazepam, or Temazepam. Oxazepam Glucuronide Urine Not Detected Cutoff: 50 ng/mL [facility] Comment:Metabolite of Oxazep am Prazepam Urine Not Detected Cutoff: 10 ng/mL [facility] Comment:Centrax Temazepam Urine Not Detected Cutoff: 10 ng/mL [facility] Comment:Restoril; Also a met abolite of Diazepam. Temazepam Glucuronide Urine Not Detected Cutoff: 50 ng/mL [facility] Comment:Metabolite of Temaze chris Triazolam Urine Not Detected Cutoff: 10 ng/mL [facility] Comment:Halcion Alpha-Hydroxy Triazolam Urine Not Detected Cutoff: 10 ng/mL [facility] Comment:Metabolite of Triazo lopes Zolpidem Urine Not Detected Cutoff: 10 ng/mL [facility] Comment:Ambien Zolpidem Gmjhm-5-Lbduyilzgq Acid Urine Present(A) Cutoff: 10 ng/mL [facility] Comment:Metabolite of Zolpid em Benzodiazepine Interp Urine See Footnote [facility] Comment: Test detected the presence of alprazolam and two of its metabolites (alpha-hydroxyalprazolam and alpha-hydroxyalprazolam glucuronide). Suspect use of alprazolam within the past three days. Test detected the presence of zolpidem vvuwtn-1-nsdtdaswif acid (metabolite of zolpidem) only. Suspect use of zolpidem within the past four days. ADDITIONAL INFORMATION This test was developed and its performance characteristics determined by [facility] in a manner consistent with CLIA requirements. This test has not been cleared or approved by the U.S. Food and Drug Administration. Methamphetamine Not Detected Cutoff: 100 ng/mL [facility] Comment:Desoxyn Amphetamine Not Detected Cutoff: 100 ng/mL [facility] Comment: Dyanavel XR, Adzenys ER, Adderall, Vyvanse; Also a metabolite of methamphetamine 3,4-Methylenedioxymetha mphetamine (MDMA) Not Detected Cutoff: 100 ng/mL [facility] 3,1-Kvmygbaruwiwly-K-Et hylamphetamine (MDEA) Not Detected Cutoff: 100 ng/mL [facility] 3,4-Methylenedioxyamphe tamine (MDA) Not Detected Cutoff: 100 ng/mL [facility] Comment:Also a metabolite of MDMA and/or MDEA Ephedrine Not Detected Cutoff: 100 ng/mL [facility] Pseudoephedrine Present(A) Cutoff: 100 ng/mL [facility] Comment:Sudafed Phentermine Not Detected Cutoff: 100 ng/mL [facility] Comment:Adipex-P, Lomaira, Q symia Phencyclidine (PCP) Not Detected Cutoff: 20 ng/mL [facility] Methylphenidate Not Detected Cutoff: 20 ng/mL [facility] Comment:Ritalin, Concerta Ritalinic acid Not Detected Cutoff: 100 ng/mL [facility] Comment:Metabolite of methyl phenidate Stimulant Interpretation See Footnote [facility] Comment: Test detected the presence of pseudoephedrine. Suspect use of pseudoephedrine within the past three days. ADDITIONAL INFORMATION This test was developed and its performance characteristics determined by [facility] in a manner consistent with CLIA requirements. This test has not been cleared or approved by the U.S. Food and Drug Administration. Test Performed by: [facility] - [address] [place] [address] [address] Car[employer] Y[employer] Winder Operator: Yonathan Guzman M.D. Ph.D.; [facility]# [id number] Patients Current Medications NOT ANSWERED [facility] Comment: ADDITIONAL INFORMATION Accuracy and completeness of declared medications on reports solely dependent on information submitted by client. Urine 01/20/2023 12:3 7 PM CDT 01/20/2023 8:31 PM CDT Rogerio Kramer MD URINE ORDER GODWIN [facility] Unless otherwise noted, all lab tests performed by: Division of Pathology and Laboratory Medicine [address] [place] [id number] * (ABNORMAL) POC Urine Drug Screen (01/20/2023 12:37 PM CDT) POC U Amp Negative Negative [facility] Comment: Drug Abuse Cutoff Concentration: Cutoff: 1000 ng/mL POC U Barbit Negative Negative [facility] Comment: Drug Abuse Cutoff Concentration: 300 ng/mL POC U Benzo Positive(A) Negative [facility] Comment: Drug Abuse Cutoff Concentration: Cutoff: 300 ng/ mL POC U Cocaine Negative Negative [facility] Comment: Drug Abuse Cutoff Concentration: Cutoff: 300 ng/mL POC U THC Positive(A) Negative [facility] Comment: Drug Abuse Cutoff Concentration: Cutoff: 50 ng/mL POC U Methd Negative Negative [facility] Comment: Drug Abuse Cutoff Concentration: Cutoff: 300 ng/mL POC U Mampht Negative Negative [facility] Comment: Drug Abuse Cutoff Concentration: Cutoff: 1000 ng/mL POC U Opiate Negative Negative [facility] Comment: Drug Abuse Cutoff Concentration: Cutoff: 2000 ng/mL POC U Oxycod Positive(A) Negative [facility] Comment: Drug Abuse Cutoff Concentration: Cutoff: 100 ng/mL Due to the assay cross reactivity between Oxycodone and Opiates, and lower sensitivity compared to GC-MS method, the test results may be falsely positive or falsely negative. Confirmation with concurrent GC-MS results is recommended. POC U PCP Negative Negative [facility] Comment: Drug Abuse Cutoff Concentration: Cutoff: 25 ng/mL POC U TCA Negative Negative [facility] Comment: Drug Abuse Cutoff Concentration: Cutoff: 1000 ng/mL POC U PPX Negative Negative [facility] Comment: Drug Abuse Cutoff Concentration: Cutoff: 300 [...] PM CDT 01/20/2023 1:10 PM CDT Narrative [facility] - 01/20/2023 1:30 PM CDT The POC Urine Qualitative Drug Screen Panel report is intended for use in clinical monitoring or management of patients. Unconfirmed screening results must not be used for non-medical purposes such as legal or employment-related testing. Rogerio Kramer MD POINT OF DC RE TEST ORDERABLES [facility] Unless otherwise noted, all lab tests performed by: Division of Pathology and Laboratory Medicine [address] [place] [address] * Tetrahydocannabinol (THC), Quantitative, Urine (01/20/2023 12:37 PM CDT) U THC GC/MS-Guy n/a [facility] U THC [facility]Guy see note [facility] Comment: Carboxy-THC Confirmation, U: Carboxy-THC Interpretation: Positive ADDITIONAL INFORMATION: This report is intended for use in clinical monitoring and management of patients. It is not intended for use in employment-related testing. ----- --------- Delta-8 Carboxy-Tetrahydrocannabinol by LC-MS/MS: 672 ng/mL Reference Value: Cutoff: 5 Delta-9 Carboxy-Tetrahydrocannabinol by LC-MS/MS: 42 ng/mL Reference Value: Cutoff: 5 PERFORMING LAB: [facility] [address] [place] [id number] Yonathan Guzman M.D. Ph.D. [id number] U THC [facility] n/a [facility] Urine, Clean Catch 01/20/2023 12:37 PM CDT 01/27/2023 11:34 AM CDT Rogerio Kramer MD URINE ORDER GODWIN [facility] Unless otherwise noted, all lab tests performed by: Division of Pathology and Laboratory Medicine [address] [place] [address] * X-ray Knee 1 Or 2 Views [...] OU - Both Eyes (12/29/2022 10:51 AM BREADING MACHINE TENDER) Narrative Suzanne Mcgrath MD - 12/30/2022 11:50 AM BREADING MACHINE TENDER Right Eye Threshold was 30-2. The AVF [...] OU - Both Eyes (12/29/2022 10:43 AM BREADING MACHINE TENDER) Suzanne Hill MD - 12/30/2022 11:44 AM BREADING MACHINE TENDER Normal average thickness of peripapillary retinal nerve fiber layer . With borderline thinning temporally right eye Suzanne Mcgrath MD OPHTHALMOLOGY IMG OR DERABLES * OCT, Retina - OU - Both Eyes (12/29/2022 10:43 AM BREADING MACHINE TENDER) Suzanne Hill MD - 12/30/2022 11:44 AM BREADING MACHINE TENDER Normal macular volume. No sign of serous retinopathy Suzanne Mcgrath MD OPHTHALMOLOGY IMG OR DERABLES * COVID-19 (SARS-CoV-2) PCR-Asymptomatic (12/23/2022 12:01 PM BREADING MACHINE TENDER) COVID19 (SARS CoV-2) Result Not Detected Not Detected [facility] [place] Comment: This test is a qualitative reverse-transcriptase polymerase chain reaction (RT- PCR) developed for the [employer] system and intended for qualitative detection of SARS CoV-2 RNA in nasopharyngeal and oropharyngeal swab specimens collected from any individuals, including those suspected of COVID-19 by their healthcare provider, and those without symptoms or other reasons to suspect COVID-19. A fact sheet for patients provided by the ui developer ([employer]) can be reviewed at: https://www.fda.gov/media/921689/download. A fact sheet for Health Care providers is provided by the ui developer ([employer]) and can be reviewed at: https://www.fda.gov/media/415795/download Results must be interpreted within the context [...] verified by the Microbiology Laboratory at [facility], CLIA Accreditation #: [id number] and CAP Accreditation #: [id number]. COVID19 SARS Source SERVICE LINE LAYER Swab [facility] COVID19 SARS Indication Pre-Radiati on Therapy [facility] Nasopharyngeal Swab 12/23/19 12:01 PM BREADING MACHINE TENDER 12/23/2022 3:41 PM BREADING MACHINE TENDER Winter Luu MD MICROBIOLOGY - GEN ERAL ORDERABLES [facility] Unless otherwise noted, all lab tests performed by: Division of Pathology and Laboratory Medicine [address] [place] [address] * OCT, Optic Nerve - OU - Both Eyes (12/15/2022 10:37 AM BREADING MACHINE TENDER) Sheridan Angulo MD - 12/17/2022 12:25 PM BREADING MACHINE TENDER Right Eye Average nerve fiber layer thickness consistent with normal Left Eye Average nerve fiber layer thickness consistent with normal Sheridan Alvarez MD OPHTHALMOLOGY IMG OR DERABLES * OCT, Retina - OU - Both Eyes (12/15/2022 10:37 AM BREADING MACHINE TENDER) Sheridan Angulo MD - 12/17/2022 12:25 PM BREADING MACHINE TENDER Right Eye This is the baseline exam. Findings include normal observations. Left Eye This is the baseline exam. Findings include normal observations. Sheridan Alvarez MD OPHTHALMOLOGY IMG OR DERABLES * Fundus Photos - OU - Both Eyes (12/15/2022 10:37 AM BREADING MACHINE TENDER) Sheridan Angulo MD - 12/17/2022 12:25 PM BREADING MACHINE TENDER Right Eye Basline Exam. Sheridan Alvarez MD OPHTHALMOLOGY IMG OR DERABLES * 3D Dental Imaging (iCAT) (12/15/2022 8:42 AM BREADING MACHINE TENDER) Yan Systemgenerated, Documentation - 12/15/2022 8:42 AM BREADING MACHINE TENDER This procedure requires no interpretation from the radiologist. Benito Saini DDS IMG NON DI ORDERABLE S * FL Modified Barium Swallow w Speech (12/14/2022 2:37 PM BREADING MACHINE TENDER) Anatomical Region Laterality Modality Neck Radio Fluoroscop y 12/14/2022 2:58 PM BREADING MACHINE TENDER Impressions 12/14/2022 3:08 PM BREADING MACHINE TENDER 1. Flash penetration without aspiration seen with thin liquid barium. 2. Please refer to the separately dictated speech pathology report for further details and recommendations. Narrative 12/14/2022 3:08 PM BREADING MACHINE TENDER FULL RESULT: Examination: FL MODIFIED BARIUM SWALLOW [...] modified barium swallow was performed in conjunction withspeech pathology. The patient was given barium mixed [...] * (ABNORMAL) ABG Venous (12/11/2022 6:21 PM BREADING MACHINE TENDER) pH Raghavendra 7.40 7.32 - 7.43 [facility] Comment:Results are correcte d for a body temp of 37C pCO2 Raghavendra 47.6 41.0 - 51.0 mmHg [facility] pO2 Raghavendra 52 mmHg [facility] HCO3 Raghavendra 29(H) 21 - 28 mmol/L [facility] Base Excess Raghavendra 3 -2 - 3 mmol/L [facility] O2 Sat Raghavendra 87 % [facility] Blood 12/11/2022 6:21 PM BREADING MACHINE TENDER 12/11/2022 6:29 PM BREADING MACHINE TENDER Travis Lopez MD LAB BLOOD ORDERABLE S Performing Organization Address [facility] Co de Phone Number [facility] Unless otherwise noted, all lab tests performed by: Division of Pathology and Laboratory Medicine [address] [place] [address] * Ketone Bodies Qualitative (12/11/2022 5:19 PM BREADING MACHINE TENDER) Pathologist [facility] UA Ketones NEG NEG mg/dL [facility] Urine 12/11/2022 5:19 PM BREADING MACHINE TENDER 12/11/2022 5:24 PM BREADING MACHINE TENDER Waleska Salinas APRN URINE ORDERABLES Performing Organization Address [facility] Co de Phone Number [facility] Unless otherwise noted, all lab tests performed by: Division of Pathology and Laboratory Medicine [address] [place] [address] * POC Critical (12/11/2022 3:34 PM BREADING MACHINE TENDER) Only the most recent of2 resultswithin the time period is included. [facility] POC Critical Comment See Note [facility] Comment:Test performer notif ied Ordering Licensed Provider and /or designee of POC Glucose Screen critical Results.. Blood 12/11/2022 3:34 PM BREADING MACHINE TENDER 12/11/2022 3:34 PM BREADING MACHINE TENDER Travis Lopez MD POINT OF CARE TEST ORDERABLES Performing Organization Address [facility] Co de Phone Number [facility] Unless otherwise noted, all lab tests performed by: Division of Pathology and Laboratory Medicine [address] [place] [address] * (ABNORMAL) POC VBG+Lac (12/09/2022 9:36 PM BREADING MACHINE TENDER) Pathologist [facility] POC VB pH 7.46(H) 7.31 - 7.41 [...] Clean Dev Yes [facility] Performing Lab [facility] Comment:[facility], [address] [place] [address]; Carpet Yarn Winder Operator: Chula Jacob MD; Waived Point of Care Testing - Gabrielle Mueller MD Blood 12/09/2022 9:36 PM BREADING MACHINE TENDER 12/09/2022 9:36 PM BREADING MACHINE TENDER Roberto Carlos Walsh MD POCT ORDERABLES - DE VICE Performing Organization Address [facility] de Phone Number [facility] Unless otherwise noted, all lab tests performed by: Division of Pathology and Laboratory Medicine [address] [place] [address] * Ammonia Level (12/09/2022 6:01 PM BREADING MACHINE TENDER) Ammonia 18 11 - 51 mcmol/L [facility] Blood 12/09/2022 6:01 PM BREADING MACHINE TENDER 12/09/2022 6:15 PM BREADING MACHINE TENDER Tammy Mike MD LAB BLOOD ORDERABLES Performing Organization Address [facility] Co de Phone Number [facility] Unless otherwise noted, all lab tests performed by: Division of Pathology and Laboratory Medicine [address] [place] [address] * MISSY GRIFFIN MDA CHRISTINE: Mutation Analysis Precision Panel Report (12/04/2022 10:56 AM BREADING MACHINE TENDER) 12/04/2022 10:5 6 AM BREADING MACHINE TENDER Lorena Hdez APRN, MDA AP MOLECULA R BIOMARKERS [facility] Unless otherwise noted, all lab tests performed by: Division of Pathology and Laboratory Medicine [address] [place] [address] * Solid Tumor Genomic Assay Fusions 2018 Interpretation and Report (12/04/2022 10:56 AM BREADING MACHINE TENDER) 12/04/2022 10:5 6 AM BREADING MACHINE TENDER 12/04/2022 10:56 AM BREADING MACHINE TENDER Lorena Hdez APRN, MDA AP MOLECULA R BIOMARKERS Performing Organization Address City/[facility]/ZIP Co de Phone Number [facility] Unless otherwise noted, all lab tests performed by: Division of Pathology and Laboratory Medicine [address] [place] [address] * Molecular Diagnostics Specimen Collection -FFPE (12/04/2022 10:56 AM BREADING MACHINE TENDER) Molecular Diagnostics (Received) Yes [facility] Christianoanaly Aidan Link [id number] [facility] Block Number (Qualitative) BLANK [facility] Outside Accession (Qualitative) [id number] [facility] FFPE 12/04/2022 10:5 6 AM BREADING MACHINE TENDER 12/04/2022 10:56 AM BREADING MACHINE TENDER Lorena BAEZABL OOD COLLECTIONS [facility] Unless otherwise noted, all lab tests performed by: Division of Pathology and Laboratory Medicine [address] [place] [address] * MRI Skull Base with and without Contrast (11/30/2022 11:12 AM BREADING MACHINE TENDER) Anatomical Region Laterality Modality Head Magnetic Resonan ce 12/01/2022 9:21 AM BREADING MACHINE TENDER Impressions 12/01/2022 1:06 PM BREADING MACHINE TENDER 1. 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 2. Tumor likely involves the lesser wing of the left sphenoid bone. 3. No lateral retropharyngeal or visualized cervical adenopathy. Narrative 12/01/2022 1:06 PM BREADING MACHINE TENDER FULL RESULT: Examination: MRI SKULL BASE WITH [...] or visualized cervical adenopathy. Lorena Hdez APRN [facility] MRI ORDERAB LES * PETCT Contrast Enhanced Initial Treatment Strategy (11/27/2022 3:57 PM BREADING MACHINE TENDER) Anatomical Region Laterality Modality Whole Body Positron Emissio n Tomography (PET) 11/30/2022 8:31 AM BREADING MACHINE TENDER Impressions 11/30/2022 8:38 AM BREADING MACHINE TENDER Subtle activity associated with subtle asymmetric fullness in posterior left nasal pharynx is compatible with reported primary tumor. No suspicious activity to suggest regional jeremiah or distant metastases. Narrative 11/30/2022 8:38 AM BREADING MACHINE TENDER FULL RESULT: Examination: Contrast-Enhanced FDG PET/CT, 11/27/2022 [...] ENRIQUE YUN Blood Control (11/26/2022 1:07 PM BREADING MACHINE TENDER) [facility] Molecular Diagnostics (Received) Yes [facility] Blood 11/26/2022 1:07 PM BREADING MACHINE TENDER 11/27/2022 9:13 AM BREADING MACHINE TENDER Lorena Hdez APRN [facility] IP HP MOLEC JESSICA BRYANG IF ORDERABLES [facility] Unless otherwise noted, all lab tests performed by: Division of Pathology and Laboratory Medicine [address] [place] [address] * (ABNORMAL) Vitamin D 25OH (11/26/2022 1:07 PM BREADING MACHINE TENDER) [facility] Vitamin D 25 OH 21(L) 30 - 100 ng/mL [place] Comment: Reference Range: Deficiency: <10 ng/mL Insufficiency: 10-29 ng/mL Sufficiency: 30-100 ng/mL Potential toxicity: >100 ng/mL Testing performed at [facility], [address] [place] [id number] Blood 11/26/2022 1:07 PM BREADING MACHINE TENDER 11/26/2022 1:19 PM BREADING MACHINE TENDER Lorena Kayla Hdez PRODUCTION ASSEMBLY OPERATOR LAB BLOOD ORDER GODWIN Performing Organization Address City/[facility]/ZIP Co de Phone Number [address], [facility] [address] [place] [address] * (ABNORMAL) Uric Acid (11/26/2022 1:07 PM BREADING MACHINE TENDER) Uric Acid 6.5(H) 2.4 - 5.7 mg/dL [place] Comment:Testing performed at [facility], [address] [place] [address] Blood 11/26/2022 1:07 PM BREADING MACHINE TENDER 11/26/2022 1:19 PM BREADING MACHINE TENDER Lorena Hdez APRN LAB BLOOD ORDER GODWIN Performing Organization Address City/[facility]/ZIP Co de Phone Number [place] [phone] [place] [address] * [id number] Fusion Material Request (11/26/2022 12:43 PM BREADING MACHINE TENDER) Archived Material The test is to be performed on tissue from case [id number]. The case report, slides, and blocks for the cited accession were retrieved from archives. The pathologist examined the candidate H&E slide and selected the block appropriate to the specifications of the ordered molecular analysis. Unstained slides and H&E slide were prepared and forwarded to Molecular Diagnostic Laboratory where the subject molecular test will be performed. Results will be reported separately. 12/04/2022 8:01 AM BREADING MACHINE TENDER [facility] Pathologist Signature 12/04/2022 8:01 AM BREADING MACHINE TENDER [facility] Tissue specimen (specimen) 11/26/2022 12:43 PM BREADING MACHINE TENDER 11/26/2022 12:43 PM BREADING MACHINE TENDER Lorena Hdez BORIS [facility] [employer] Performing Organization Address [facility] Co de Phone Number [address] [address], [place] * NTRK2 Fusion Material Request (11/26/2022 12:43 PM BREADING MACHINE TENDER) Archived Material The test is to be performed on tissue from case [id number]. The case report, slides, and blocks for the cited accession were retrieved from archives. The pathologist examined the candidate H&E slide and selected the block appropriate to the specifications of the ordered molecular analysis. Unstained slides and H&E slide were prepared and forwarded to [facility] where the subject molecular test will be performed. Results will be reported separately. 12/04/2022 8:01 AM BREADING MACHINE TENDER [facility] Pathologist Signature 12/04/2022 8:01 AM BREADING MACHINE TENDER [facility] Tissue specimen (specimen) 11/26/2022 12:43 PM BREADING MACHINE TENDER 11/26/2022 12:43 PM BREADING MACHINE TENDER Lorena Kayla Hdez APRN [facility] [employer] Performing Organization Address [facility] Co de Phone Number [address] [address], [place] * NTRK1 Fusion Material Request (11/26/2022 12:43 PM BREADING MACHINE TENDER) Archived Material The test is to be performed on tissue from case [id number]. The case report, slides, and blocks for the cited accession were retrieved from archives. The pathologist examined the candidate H&E slide and selected the block appropriate to the specifications of the ordered molecular analysis. Unstained slides and H&E slide were prepared and forwarded to [facility] where the subject molecular test will be performed. Results will be reported separately. 12/04/2022 8:01 AM [facility] Pathologist Signature 12/04/2022 8:01 AM [facility] Tissue specimen (specimen) 11/26/2022 12:43 PM BREADING MACHINE TENDER 11/26/2022 12:43 PM BREADING MACHINE TENDER Lorena Kayla Lemuel ESCALANTE [facility] [employer] Performing Organization Address [facility] Co de Phone Number [address] [address], [place] * MD ERBB2 Mutation Analysis Material Request (11/26/2022 12:43 PM BREADING MACHINE TENDER) Pathologist [facility] Archived Material The test is to be performed on tissue from case [id number]. The case report, slides, and blocks for the cited accession were retrieved from archives. The pathologist examined the candidate H&E slide and selected the block appropriate to the specifications of the ordered molecular analysis. Unstained slides and H&E slide were prepared and forwarded to [facility] where the subject molecular test will be performed. Results will be reported separately. 12/04/2022 8:01 AM [facility] Pathologist Signature 12/04/2022 8:01 AM [facility] Tissue specimen (specimen) 11/26/2022 12:43 PM BREADING MACHINE TENDER 11/26/2022 12:43 PM BREADING MACHINE TENDER Lorena Hdez APRN [facility] [employer] Performing Organization Address [facility] Co de Phone Number [address] [address], [place] * MD ALK Mutation Analysis Material Request (11/26/2022 12:43 PM BREADING MACHINE TENDER) Archived Material The test is to be performed on tissue from case [id number]. The case report, slides, and blocks for the cited accession were retrieved from archives. The pathologist examined the candidate H&E slide and selected the block appropriate to the specifications of the ordered molecular analysis. Unstained slides and H&E slide were prepared and forwarded to [facility] where the subject molecular test will be performed. Results will be reported separately. 12/04/2022 8:02 AM [facility] Pathologist Signature 12/04/2022 8:02 AM BREADING MACHINE TENDER [facility] Tissue specimen (specimen) 11/26/2022 12:43 PM BREADING MACHINE TENDER 11/26/2022 12:43 PM BREADING MACHINE TENDER Lorena Hdez APRN [facility] [employer] Performing Organization Address [facility] Co de Phone Number [address] [address], [place] * MTOR Mutation Material Request (11/26/2022 12:43 PM BREADING MACHINE TENDER) Pathologist [facility] Archived Material The test is to be performed on tissue from case [id number]. The case report, slides, and blocks for the cited accession were retrieved from archives. The pathologist examined the candidate H&E slide and selected the block appropriate to the specifications of the ordered molecular analysis. Unstained slides and H&E slide were prepared and forwarded to [facility] where the subject molecular test will be performed. Results will be reported separately. 12/04/2022 8:01 AM BREADING MACHINE TENDER [facility] Pathologist Signature 12/04/2022 8:01 AM BREADING MACHINE TENDER [facility] Tissue specimen (specimen) 11/26/2022 12:43 PM BREADING MACHINE TENDER 11/26/2022 12:43 PM BREADING MACHINE TENDER Lorena Hdez APRN [facility] [employer] Performing Organization Address [facility] Co de Phone Number [address] [address], [place] * PTEN Mutation Material Request (11/26/2022 12:43 PM BREADING MACHINE TENDER) Archived Material The test is to be performed on tissue from case [id number]. The case report, slides, and blocks for the cited accession were retrieved from archives. The pathologist examined the candidate H&E slide and selected the block appropriate to the specifications of the ordered molecular analysis. Unstained slides and H&E slide were prepared and forwarded to [facility] where the subject molecular test will be performed. Results will be reported separately. 12/04/2022 8:02 AM BREADING MACHINE TENDER [employer] [facility] [facility] Pathologist Signature 12/04/2022 8:02 AM BREADING MACHINE TENDER [facility] Tissue specimen (specimen) 11/26/2022 12:43 PM BREADING MACHINE TENDER 11/26/2022 12:43 PM BREADING MACHINE TENDER Lorena Hdez APRN [facility] [employer] Performing Organization Address [facility] Co de Phone [place] [address], * EGFR Mutation Material Request (11/26/2022 12:43 PM BREADING MACHINE TENDER) Pathologist [facility] Archived Material The test is to be performed on tissue from case [id number]. The case report, slides, and blocks for the cited accession were retrieved from archives. The pathologist examined the candidate H&E slide and selected the block appropriate to the specifications of the ordered molecular analysis. Unstained slides and H&E slide were prepared and forwarded to [facility] where the subject molecular test will be performed. Results will be reported separately. 12/04/2022 8:02 AM BREADING MACHINE TENDER [employer] [facility] [facility] Pathologist Signature 12/04/2022 8:02 AM BREADING MACHINE TENDER [employer] [facility] Tissue specimen (specimen) 11/26/2022 12:43 PM BREADING MACHINE TENDER 11/26/2022 12:43 PM BREADING MACHINE TENDER Lorena Hdez APRN [facility] [employer] Performing Organization Address City/State/[facility] Co de Phone Number [facility] [address] [address], [place] * IHC PD-L1 Material Request (11/26/2022 12:43 PM BREADING MACHINE TENDER) Tissue specimen (specimen) 11/26/2022 12:43 PM BREADING MACHINE TENDER 11/26/2022 12:43 PM BREADING MACHINE TENDER Lorena Hdez APRN [facility] [employer] [employer] [facility] [address] [address], [place] * IHC HER2/arcenio Material Request (11/26/2022 12:43 PM BREADING MACHINE TENDER) Tissue specimen (specimen) 11/26/2022 12:43 PM BREADING MACHINE TENDER 11/26/2022 12:43 PM BREADING MACHINE TENDER Lorena Hdez APRN [facility] IP [facility] [employer] Performing Organization Address City/[facility]/ZIP Co de Phone Number [address] [address], [place] * Testosterone Level (11/17/2022 12:11 PM BREADING MACHINE TENDER) Testoster Tot <3 3 - 41 ng/dL [place] Comment: Reference Ranges: Male: Age 20 - 49 249 - 836 Age >=50 193 - 740 Female: Age 20 - 49 8 - 48 Age >=50 3 - 41 Testing performed at [facility], [address] [place] [address] Blood 11/17/2022 12:1 1 PM BREADING MACHINE TENDER 11/17/2022 12:12 PM BREADING MACHINE TENDER Red Berman APRN LAB BLOOD ORDERA BLES [address], [facility] [address] [place] [address] * Pathology Outside Interpretation (10/16/2022) Materials Received Accession#, Stained, Block, Unstained Collected Received A. [id number], 7 SS, 1 BLOCKS, 0 USS 10/16/2022 11/24/2022 11/27/2022 5:08 PM [facility] Addendum 1 At the request of th e treating physician the following studies were performed and interpreted at [facility]. The tumor cells are negative for Her2 (0%) by immunohistochemical analysis. The tumor cells are positive for cleaved NOTCH1 (< 70% ) by immunohistochemical analysis. PD-L1 (Clone 22C3, [employer] Pharm[employer]) Combined Positive Score (CPS): is less than 1 Assay Information: This assay is manufactured by [employer] and uses a monoclonal anti-PD-L1, clone 22C3. It is performed on formalin-fixed paraffin-embedded tissue using an [employer] autostainer and polymer based detection kit, as specified by the ui developer. It is approved for use as a metal ceiling hanger diagnostic for specific therapies on certain tumor [...] defined as CPS 100. 11/27/2022 5:08 PM [facility] Addendum electronically signed by Ashleigh Duarte MD on 11/27/2022 at 5:08 PM Diagnosis Outside ([id number], 7 SS, 1 BLOCKS, 0 USS, collected on 10/16/2022): Nasopharynx, biopsy: ADENOID CYSTIC CARCINOMA, CRIBRIFORM TYPE see comment EARL/SALEEM 11/27/2022 5:08 PM [facility] Comment Submitted immunohistochemical stains performed by referring institution show that CK7 highlights the epithelial cells, and p63 and p40 highlights the myoepithelial cells. The morphology and immunophenotype is supportive of this classification. 11/27/2022 5:08 PM [employer] Biomarker Block(s) Tumor block: 22:[id number] 11/27/2022 5:08 PM [employer] Disclaimer "Some tests reported here may have been developed and performance characteristics determined by [facility]. These tests have not been specifically cleared or approved by the U.S. Food and Drug Administration. If applicable, controls were reviewed and showed appropriate reactivity." 11/27/2022 5:08 PM BREADING MACHINE TENDER [facility] Tissue specimen (specimen) 10/16/2022 11/24/2022 3:02 PM BREADING MACHINE TENDER Alexa Alvarez MD LAB PATHOLOGY ORDERA JOANNE [facility] Cancer [facility] [address] [place] [address], after 10/14/2022 Advance Directives Latest Code Status on File Code Status Date Activated Date Inactivated Comments Full Code 02/06/2023 1:33 AM 02/16/2023 6:41 PM Code Status History Code Status Date Activated Date Inactivated Comments Full Code 01/26/2023 5:50 PM 02/01/2023 8:34 PM Full Code 01/11/2023 10:19 PM 01/18/2023 9:39 PM Full Code 12/09/2022 10:42 PM 12/15/2022 9:30 PM Care Teams Scale Balancer Relationship Specialty Start Date End Date Bina Obando MD [address] [place] [address] [place] [phone] PCP - External Referring Otolaryngology 11/12/22 Kenya Agarwal MD [address] [place] [address] [phone] PCP - General Head and Neck Surgery 11/12/22 Trent Irving MD [address] [place] [address] [facility] 11/26/22 Randall Sheriff MD [address] [place], [place] [phone] [facility] 11/26/22 Vignesh Waddell MD [address] [place] [address] [phone] Pulmonary Medicine 11/26/22 [place] [address] [place] [address] [phone] Cardiology 11/26/22 Tapan Harper MD [address] [place], [place] [phone] Gastroenterology 11/26/22 Rafael Rosas MD [address] [place] [phone] Ophthalmology 11/26/22 Suzanne Mcgrath MD [address] [place] [address] [phone] Consulting Physician Ophthalmology 12/29/22 Winter Luu MD [address] [place] [address] Consulting Physician Radiation Oncology 11/26/22 Vaibhav Rosario MD [address] [place] [address] Consulting Physician Medical Oncology 11/26/22 Rogerio Kramer MD [address] [place] [address] Consulting Physician Pain Management 01/20/23 Rosana Harkins MD [address] [place] [address] Consulting Physician Hematology and Oncology 03/31/23 No Andrade MD [address] [place] [address] [phone] Consulting Physician Endocrinology 09/01/23
[2023-10-14] MEDS ORDERED: NA CHLORIDE 0.9% 1,000 ML ONE (14:36)
[2023-10-14 14:38] LABS: Absolute Lymphocytes (CBC) 1.8 K/uL (0.7-4.9); Hematocrit 45.2 % (36.0-45.0); Lymphocytes % 22.9 % (15.3-44.8); MCV 90.9 fL (80-100); MPV 9.4 fL (7.6-11.3); Platelets 188 thou/uL (152-406); RBC Red Blood Cell Count 4.97 M/uL (3.86-4.86)
[2023-10-14 14:40] LABS: Protime INR 1.22
[2023-10-14 14:58] LABS: Albumin 3.4 g/dL (3.4-5.0); Bilirubin Direct 0.2 mg/dL (0-0.2); Bilirubin Indirect, Calculated 0.4 mg/dL (0.2-0.8); Bilirubin Total 0.6 mg/dL (0.2-1.0); Magnesium 1.6 mg/dL (1.6-2.4); Potassium 3.8 mEq/L (3.5-5.1); Protein, Total 7.2 g/dL (6.4-8.2); Troponin High Sensitivity 5.1 pg/mL (<58.9)
[2023-10-14] MEDS ORDERED: ONDANSETRON 4 MG/2 ML VIAL ONE (15:35)
[2023-10-14] MEDS ORDERED: FAMOTIDINE 20 MG/2 ML VIAL IV ONE (15:35)
[2023-10-14] MEDS ORDERED: HYDROMORPHONE HCL 1 MG/ML INJ ONE (15:35)
--- NOTE | 2023-10-14 16:35 | RAD REPORT ---
EXAM DESCRIPTION: CT - Chest Abdomen Pelvis W Cont - 10/14/2023 4:21 pm CLINICAL HISTORY: Chest and abdominal pain COMPARISON: October 06, 2023 CT abdomen TECHNIQUE: Computed axial tomography of the chest, abdomen and pelvis was obtained. 100 cc Isovue-30 0 was administered intravenously. Oral contrast was not requested. This limits evaluation of bowel. All CT scans are performed using dose optimization technique as appropriate and may include automated exposure control or mA/KV adjustment according to patient size. FINDINGS: The lungs are clear No mediastinal or hilar lymphadenopathy. No pleural effusion. No pericardial effusion. Coronary arterial calcification. Gastric bypass. Liver, spleen, pancreas, adrenals and kidneys are unremarkable No evidence of diverticulitis A moderate amount of stool within the colon. No adnexal mass IMPRESSION: Moderate amount stool within the colon
--- NOTE | 2023-10-14 16:35 | RAD REPORT ---
EXAM DESCRIPTION: Lion Single View10/14/2023 2:18 pm CLINICAL HISTORY: Chest pain COMPARISON: September 2023 FINDINGS: The lungs appear clear of acute infiltrate. The heart is normal size IMPRESSION: No acute abnormalities displayed
[2023-10-14] MEDS ORDERED: BISACODYL 10 MG RECTAL SUPP ONE (16:54)
[2023-10-14] MEDS ORDERED: LACTULOSE 20 GM/30 ML UCUP ONE (16:55)
--- NOTE | 2023-10-14 17:00 | ER ---
Nurse's Notes [facility] Name: Maria De Jesus Acosta Age: 58 yrs Sex: Female : 1965 Arrival Date: 10/14/2023 Time: 13:40 Bed 17 Private MD: Diagnosis: Abdominal pain, Generalized;Constipation;Obesity, unspecified Presentation: 10/14 13:48 Chief complaint: Patient's son or daughter states: Upper abdominal, rectal and chest nj1 pain for about a month, seen here last week for same complaints. However, pain has gotten worse ever since. Had gastric bypass about a month ago. Coronavirus screen: Vaccine status: Patient reports receiving the 2nd dose of the covid vaccine. Ebola Screen: Patient denies travel to an Ebola-affected area in the 21 days before illness onset. Initial Sepsis Screen: Does the patient meet any 2 criteria? No. Patient's initial sepsis screen is negative. Does the patient have a suspected source of infection? No. Patient's initial sepsis screen is negative. Risk Assessment: Do you want to hurt yourself or someone else? Patient reports no desire to harm self or others. Onset of symptoms was September 2023. 13:48 Method Of Arrival: Wheelchair nj 13:48 Acuity: EMERALD 2 nj1 Triage Assessment: 16:19 General: Appears in no apparent distress. uncomfortable, obese, Behavior is bp cooperative, appropriate for age, anxious. Pain: Complains of pain in abdomen. GI: Abdomen is non-distended. Historical: - Allergies: 13:53 Doxycycline; nj1 13:53 kiwi; nj1 13:53 orange juice; nj1 13:53 Reglan; nj1 13:53 metoclopramide HCl; nj1 - PMHx: 13:53 Asthma; CHF; COPD; Crohn's; Diabetes - NIDDM; Hypertension; Nasal cancer; nj1 - PSHx: 13:53 Appendectomy; Cholecystectomy; Gastric Bypass; Ligation of fallopian tube; partial nj1 hysterectomy; Shoulder; - Immunization history:: Client reports receiving the 2nd dose of the Covid vaccine. - Social history:: Smoking status: Patient denies any tobacco usage or history of. - Family history:: not pertinent. Screenin:17 [facility] ED Fall Risk Assessment (Adult) History of falling in the last 3 months, bp including since admission No falls in past 3 months (0 pts). Abuse screen: Denies threats or abuse. Denies injuries from another. Nutritional screening: No deficits noted. Tuberculosis screening: No symptoms or risk factors identified. Assessment: 16:15 Reassessment: PT RETURNED FROM CT. bp 17:14 Reassessment: DC WITH FAMILY. bp Vital Signs: 13:48 BP 145 / 98; Pulse 82; Resp 24; Temp 98.1(O); Pulse Ox 98% ; Weight 124.74 kg; Height 5 nj1 ft. 3 in. ; Pain 10/10; 16:18 BP 120 / 76; Pulse 85; Resp 16; Pulse Ox 98% ; bp 17:14 BP 121 / 72; Pulse 79; Resp 16; Pulse Ox 99% ; bp 13:48 Body Mass Index 48.71 (124.74 kg, 160.02 cm) nj1 13:48 Pain Scale: Adult [facility] ED Course: 13:43 Patient arrived in ED. mg5 13:53 Triage completed. nj1 13:53 Dominguez Voss MD is Attending Physician. ebenezer 14:15 Daniela Kolb is Primary Nurse. cp4 14:20 XRAY Chest (1 view) In Process Unspecified. EDMS 14:32 Lipase Sent. cp4 14:32 Basic Metabolic Panel Sent. cp4 14:32 CBC with Diff Sent. cp4 14:32 LFT's Sent. cp4 14:32 Magnesium Sent. cp4 14:32 NT PRO-BNP Sent. cp4 14:32 PT-INR Sent. cp4 14:32 Troponin HS Sent. cp4 14:40 Inserted saline lock: 20 gauge in right antecubital area, using aseptic technique. cp4 Blood collected. 16:17 Patient has correct armband on for positive identification. Bed in low position. Call bp light in reach. Side rails up X2. 16:23 CT Chest, Abdomen, Pelvis - W/Contrast In Process Unspecified. EDMS 16:57 Tapan Harper MD is Referral Physician. ebenezer 17:14 No provider procedures requiring assistance completed. IV discontinued, intact, bp bleeding controlled, No redness/swelling at site. Pressure dressing applied. Administered Medications: 14:39 Drug: NS 0.9% IV 500 ml IV at bolus once Route: IV; Rate: bolus; Site: right cp4 antecubital; 15:13 Follow up: Response: No adverse reaction; IV Status: Completed infusion cp4 15:13 Drug: NS 0.9% IV 1000 ml IV at 125 ml/hr continuous Route: IV; Rate: 125 ml/hr; Site: cp4 right antecubital; 15:39 Drug: Famotidine IVP 20 mg IVP once; dilute with 10 mL 0.9% NaCl; give over 2 minutes cp4 Route: IVP; Site: right antecubital; 16:18 Follow up: Response: No adverse reaction bp 15:39 Drug: HYDROmorphone IVP 1 mg IVP once Route: IVP; Site: right antecubital; cp4 16:18 Follow up: Response: No adverse reaction bp 15:39 Drug: Ondansetron IVP 4 mg IVP once; over 2 minutes Route: IVP; Site: right antecubital;cp4 16:18 Follow up: Response: No adverse reaction bp 15:40 Drug: NS 0.9% IV 500 ml IV at bolus once Route: IV; Rate: bolus; Site: right cp4 antecubital; 17:01 Drug: Lactulose PO 30 grams 45 ml PO once Volume: 45 ml; Route: PO; bp 17:01 Drug: Dulcolax RI Suppository 10 mg RI once Route: RI; bp Outcome: 16:59 Discharge ordered by . ebenezer 17:14 Discharged to home via wheelchair, bp 17:14 Condition: stable 17:14 Discharge instructions given to patient, family, Instructed on discharge instructions, follow up and referral plans. medication usage, Demonstrated understanding of instructions, follow-up care, medications, Prescriptions given X 3, 17:15 Patient left the ED. bp Signatures: Dispatcher [employer] EDCO Dominguez Voss MD MD cha Peltier, Brian, RN RN bp Deanna Alejo RN RN nj1 Vangie Tobin mg5 Daniela Kolb cp4 Corrections: (The following items were deleted from the chart) 13:54 13:48 BP 95 / 67; Pulse 82bpm; Resp 24bpm; Pulse Ox 98%; Temp 98.1F Oral; 124.74 kg; nj1 Height 5 ft. 3 in.; BMI: 48.7; Pain 10, Adult; nj1
--- NOTE | 2023-10-14 17:00 | EDPHYS ---
Physician Documentation [facility] Name: Maria De Jesus Acosta Age: 58 yrs Sex: Female : 1965 Arrival Date: 10/14/2023 Time: 13:40 Bed 17 Private MD: ED Physician Dominguez Voss HPI: 10/14 15:18 This 58 yrs old Female presents to ER via Wheelchair with complaints of ebenezer Abdominal Pain, Chest Pain, Rectal Pain. 15:18 The patient or guardian reports chest pain that is located primarily in the epigastric [facility] area. Onset: 3 day(s) ago. The pain does not radiate. Associated signs and symptoms: Pertinent positives: abdominal pain, nausea. The chest pain is described as aching. Modifying factors: The symptoms are alleviated by nothing. the symptoms are aggravated by nothing. 15:19 The patient presents with abdominal distention in the upper abdomen, in the lower ebenezer abdomen. Onset: The symptoms/episode began/occurred 3 day(s) ago. The symptoms do not radiate. Associated signs and symptoms: Pertinent positives: constipation, nausea. Severity of pain: At its worst the pain was mild in the emergency department the pain is unchanged. Historical: - Allergies: 13:53 Doxycycline; nj1 13:53 kiwi; nj1 13:53 orange juice; nj1 13:53 Reglan; nj1 13:53 metoclopramide HCl; nj1 - PMHx: 13:53 Asthma; CHF; COPD; Crohn's; Diabetes - NIDDM; Hypertension; Nasal cancer; nj1 - PSHx: 13:53 Appendectomy; Cholecystectomy; Gastric Bypass; Ligation of fallopian tube; partial nj1 hysterectomy; Shoulder; - Immunization history:: Client reports receiving the 2nd dose of the Covid vaccine. - Social history:: Smoking status: Patient denies any tobacco usage or history of. - Family history:: not pertinent. ROS: 15:19 Constitutional: Negative for fever, chills, and weight loss, Eyes: Negative for injury, ebenezer pain, redness, and discharge, ENT: Negative for injury, pain, and discharge, Neck: Negative for injury, pain, and swelling, Cardiovascular: Negative for chest pain, palpitations, and edema, Respiratory: Negative for shortness of breath, cough, wheezing, and pleuritic chest pain, Back: Negative for injury and pain, : Negative for injury, bleeding, discharge, and swelling, MS/Extremity: Negative for injury and deformity, Skin: Negative for injury, rash, and discoloration, Neuro: Negative for headache, weakness, numbness, tingling, and seizure, Psych: Negative for depression, anxiety, suicide ideation, homicidal ideation, and hallucinations, Allergy/Immunology: Negative for hives, rash, and allergies, Endocrine: Negative for neck swelling, polydipsia, polyuria, polyphagia, and marked weight changes, Hematologic/Lymphatic: Negative for swollen nodes, abnormal bleeding, and unusual bruising, 15:19 Abdomen/GI: Positive for abdominal pain, constipation, of the right upper quadrant, left upper quadrant, right lower quadrant and left lower quadrant, Exam: 15:19 Constitutional: This is a well developed, well nourished patient who is awake, alert, ebenezer and in no acute distress. Head/Face: Normocephalic, atraumatic. Eyes: Pupils equal round and reactive to light, extra-ocular motions intact. Lids and lashes normal. Conjunctiva and sclera are non-icteric and not injected. Cornea within normal limits. Periorbital areas with no swelling, redness, or edema. ENT: Nares patent. No nasal discharge, no septal abnormalities noted. Tympanic membranes are normal and external auditory canals are clear. Oropharynx with no redness, swelling, or masses, exudates, or evidence of obstruction, uvula midline. Mucous membranes moist. Neck: Trachea midline, no thyromegaly or masses palpated, and no cervical lymphadenopathy. Supple, full range of motion without nuchal rigidity, or vertebral point tenderness. No Meningismus. Chest/axilla: Normal chest wall appearance and motion. Nontender with no deformity. No lesions are appreciated. Cardiovascular: Regular rate and rhythm with a normal S1 and S2. No gallops, murmurs, or rubs. Normal PMI, no JVD. No pulse deficits. Respiratory: Lungs have equal breath sounds bilaterally, clear to auscultation and percussion. No rales, rhonchi or wheezes noted. No increased work of breathing, no retractions or nasal flaring. Back: No spinal tenderness. No costovertebral tenderness. Full range of motion. Female : Normal external genitalia. Skin: Warm, dry with normal turgor. Normal color with no rashes, no lesions, and no evidence of cellulitis. MS/ Extremity: Pulses equal, no cyanosis. Neurovascular intact. Full, normal range of motion. Neuro: Awake and alert, GCS 15, oriented to person, place, time, and situation. Cranial nerves II-XII grossly intact. Motor strength 5/5 in all extremities. Sensory grossly intact. Cerebellar exam normal. Normal gait. Psych: Awake, alert, with orientation to person, place and time. Behavior, mood, and affect are within normal limits. 15:19 Abdomen/GI: Inspection: distension, obese Bowel sounds: normal, Palpation: moderate abdominal tenderness, in the right upper quadrant, left upper quadrant, right lower quadrant and left lower quadrant, Liver: no appreciated palpable abnormalities, Hernia: not appreciated, Vital Signs: 13:48 BP 145 / 98; Pulse 82; Resp 24; Temp 98.1(O); Pulse Ox 98% ; Weight 124.74 kg; Height 5 nj1 ft. 3 in. ; Pain 10/10; 16:18 BP 120 / 76; Pulse 85; Resp 16; Pulse Ox 98% ; bp 17:14 BP 121 / 72; Pulse 79; Resp 16; Pulse Ox 99% ; bp 13:48 Body Mass Index 48.71 (124.74 kg, 160.02 cm) nj 13:48 Pain Scale: Adult nj1 MDM: 13:53 Patient medically screened. ebenezer 15:20 Differential diagnosis: abnormal EKG, chest wall pain, esophagitis, peptic ulcer ebenezer disease, pneumonia, pulmonary embolus, bowel obstruction, diverticulitis, GI Bleed, Irritable bowel syndrome, Mesenteric ischemia or infarction, non-specific abd pain, Peptic Ulcer Disease, Pyelonephritis, Ureterolithiasis, urinary tract infection. HEART Score: History: Slightly Suspicious (0), ECG: Normal (0), Age: > 45 and < 65 years (1), Risk Factors: > or = 3 Risk factors for atherosclerotic disease (2), [Hypercholesterolemia] [Hypertension] [DM] [+ Family HX] [Obesity] Troponin: < or = 1 x Normal Limit (0). The patient was not given aspirin in the Emergency Department. Not indicated due to patient's past medical history. LORNE Risk Score: 1 - Three or more CAD risk factors, TOTAL SCORE = 1. Data reviewed: vital signs, nurses notes, lab test result(s), EKG, radiologic studies, CT scan, plain films. Consideration of Admission/Observation Patient was admitted/placed on observation. Escalation of care including admission/observation considered. I considered the following discharge prescriptions or medication management in the emergency department Medications were administered in the Emergency Department. See MAR. Independent interpretation of the following test(s) in the Emergency Department EKG: See my EKG interpretation above. Test considered but Not performed: Ultrasound no abd usg. Historians other than the Patient: Daughter/Son: son , well informed. Care significantly affected by the following chronic conditions: Diabetes, Hypertension, Congestive Heart Failure, Chronic Obstructive Pulmonary Disease, Obesity, Cancer. Counseling: I had a detailed discussion with the patient and/or guardian regarding the historical points, exam findings, and any diagnostic results supporting the discharge/admit diagnosis, the presence of at least one elevated blood pressure reading (>120/80) during this emergency department visit, lab results, radiology results. 10/14 13:55 Order name: Basic Metabolic Panel; Complete Time: 15:16 10/14 13:55 Order name: CBC with Diff; Complete Time: 15:16 10/14 13:55 Order name: LFT's; Complete Time: 15:16 10/14 13:55 Order name: Magnesium; Complete Time: 15:16 10/14 13:55 Order name: NT PRO-BNP; Complete Time: 15:16 10/14 13:55 Order name: PT-INR; Complete Time: 15:16 10/14 13:55 Order name: Troponin HS; Complete Time: 15:16 10/14 13:55 Order name: Lipase; Complete Time: 15:16 10/14 15:17 Order name: Lactate w/ 2H reflex if indic.; Complete Time: 16:27 10/14 13:55 Order name: XRAY Chest (1 view); Complete Time: 16:48 10/14 13:55 Order name: CT Chest, Abdomen, Pelvis - W/Contrast; Complete Time: 16:48 10/14 13:55 Order name: EKG; Complete Time: 13:56 10/14 13:55 Order name: Cardiac monitoring; Complete Time: 14:18 10/14 13:55 Order name: EKG - Nurse/Tech; Complete Time: 15:03 10/14 13:55 Order name: IV Saline Lock; Complete Time: 14:17 [facility] 10/14 13:55 Order name: Labs collected and sent; Complete Time: 14:17 [facility] 10/14 13:55 Order name: O2 Per Protocol; Complete Time: 14:17 [facility] 10/14 13:55 Order name: O2 Sat Monitoring; Complete Time: 14:17 ebenezer Administered Medications: 14:39 Drug: NS 0.9% IV 500 ml IV at bolus once Route: IV; Rate: bolus; Site: right cp4 antecubital; 15:13 Follow up: Response: No adverse reaction; IV Status: Completed infusion cp4 15:13 Drug: NS 0.9% IV 1000 ml IV at 125 ml/hr continuous Route: IV; Rate: 125 ml/hr; Site: cp4 right antecubital; 15:39 Drug: Famotidine IVP 20 mg IVP once; dilute with 10 mL 0.9% NaCl; give over 2 minutes cp4 Route: IVP; Site: right antecubital; 16:18 Follow up: Response: No adverse reaction bp 15:39 Drug: HYDROmorphone IVP 1 mg IVP once Route: IVP; Site: right antecubital; cp4 16:18 Follow up: Response: No adverse reaction bp 15:39 Drug: Ondansetron IVP 4 mg IVP once; over 2 minutes Route: IVP; Site: right antecubital;cp4 16:18 Follow up: Response: No adverse reaction bp 15:40 Drug: NS 0.9% IV 500 ml IV at bolus once Route: IV; Rate: bolus; Site: right cp4 antecubital; 17:01 Drug: Lactulose PO 30 grams 45 ml PO once Volume: 45 ml; Route: PO; bp 17:01 Drug: Dulcolax VA Suppository 10 mg VA once Route: VA; bp Disposition Summary: 10/14/23 16:59 Discharge Ordered Notes: Location: Home ebenezer Problem: new ebenezer Symptoms: have improved ebenezer Condition: Stable ebenezer Diagnosis - Abdominal pain, Generalized ebenezer - Constipation ebenezer - Obesity, unspecified ebenezer Followup: ebenezer - With: Private Physician - When: 2 - 3 days - Reason: Recheck today's complaints, Continuance of care, Re-evaluation by your physician Followup: ebenezer - With: Tapan Harper MD - When: 2 - 3 days - Reason: Recheck today's complaints, Re-evaluation by your physician Discharge Instructions: - Discharge Summary Sheet ebenezer - Abdominal Pain, Adult ebenezer - Constipation, Adult ebenezer - Abdominal Pain, Adult, [id number] ebenezer - Vomiting, Adult [facility] Forms: - Medication Reconciliation Form [facility] - Thank You Letter ebenezer - Antibiotic Education ebenezer - Prescription Opioid Use ebenezer - Patient Portal Instructions [facility] - Leadership Thank You Letter [facility] Prescriptions: - Dulcolax (bisacodyl) 10 mg Rectal suppository - insert 1 suppository RECTAL route 1 to 2 times per day for 5 days; 10 ebenezer suppository; Refills: 0, Product Selection Permitted - ondansetron 4 mg Oral Tablet,disintegrating - take 1 tablet ORAL route every 6-8 hours for 5 days; 20 tablet; Refills: 0, [facility] Product Selection Permitted - Lactulose 10 gram/15 mL Oral Solution - take 30 milliliters ORAL route once daily; 300 milliliter; Refills: 0, Product ebenezer Selection Permitted Signatures: Dispatcher [employer] Dominguez Henry MD MD cha Peltier, Brian, RN RN bp Deanna Alejo RN RN nj1 Daniela Kolb cp4
[2023-10-14 17:58] VITALS: TEMP 98.1
[2023-10-14 18:02] VITALS: BP 121/72; O2SAT 99
--- NOTE | 2023-10-15 15:21 | EKG ---
Test Date: 2023-10-14 Test Time: 15:00:55 Billing Collections Specialist: ZULMA MEASUREMENT RESULTS: Intervals: Rate: 77 MO: 150 QRSD: 76 QT: 412 QTc: 466 Pledger: P: 37 MO: 150 QRS: 41 T: 14 INTERPRETIVE STATEMENTS: Normal sinus rhythm Septal infarct, age undetermined Abnormal ECG Compared to ECG 07/01/2023 20:53:26 No significant changes Electronically Signed On 10-15-23 15:19:43 PATIENT RESOURCE COORDINATOR by Alhaji Loya
== END 2023-10-14 17:15 | disposition home or self-care (01) ==
LOC: ER 13:40
DX: K59.00 Constipation, unspecified (principal); E66.9 Obesity, unspecified; Z68.42 Body mass index [BMI] 45.0-49.9, adult; I10 Essential (primary) hypertension; Z88.1 Allergy status to other antibiotic agents; Z88.8 Allergy status to other drugs, medicaments and biological substances; Z91.018 Allergy to other foods
CPT/HCPCS: 96361; 93005; 85025; 80048; 36415; 83735; 85610; 80076; 83605; 84484; 83690; 83880; 71260; 74177; 71045; 96375; 96374; 99284; Q9967; J1170; J2405; J7030

== ENCOUNTER 2024-03-26 08:46 | Emergency (ER) | payer OTHER ==
--- OUTSIDE RECORDS SUMMARY | 2024-03-26 08:51 | XMS REPORT | Clinical Summary ---
Author Name Unknown Organization [facility] Address [address] [place] [address] Care Team Providers Care Health Clinician Name Role Phone Bnia Obando MD Unavailable [phone] Kenya Agarwal MD Primary Care Provider [phone] Trent Irving MD Unavailable [phone] Randall Sheriff MD Unavailable [phone] Vignesh Waddell MD Unavailable [phone] Naa Miller MD Unavailable [phone] [facility] Un[facility] [phone] Rafael Rosas MD Unavailable [phone] Suzanne Mcgrath MD Unavailable [phone] Winter Luu MD Unavailable [phone] Vaibhav Rosario MD Unavailable [phone] Rogerio Kramer MD Unavailable [phone] Rosana Harkins MD Unavailable No Andrade MD [...] procedure Metoclopramide Hcl Other (See Comments) 10/16/2022 Shasta Juice Nausea And Vomiting,GI Intolerance Low 04/18/2021 Medications Medication Sig Dispensed Refills Start Date End Date Status albuterol (VENTOLIN HFA,PROAIR HFA) 90 mcg/puff inhaler every 6 (six) hours as needed. 10/19/20 22 Active ALPRAZolam (XANAX) 2 mg tablet every 8 (eight) hours as needed for anxiety. 10/20/20 22 Active amLODIPine (NORVASC) 5 mg tablet TAKE 1 TABLET BY MOUTH EVERY DAY 10/13/20 Active atorvastatin (LIPITOR) 20 mg tablet TAKE 1 TABLET BY MOUTH EVERY DAY 09/12/20 Active Trelegy Ellipta 100-62.5-25 mcg dsdv INHALE 1 PUFF BY MOUTH EVERY DAY 09/18/20 Active mesalamine (APRISO) 0.375 gram 24 hr capsule TAKE 4 CAPSULES BY MOUTH DAILY 08/24/20 Active pantoprazole (PROTONIX) 40 mg EC tablet TAKE 1 TABLET BY MOUTH DAILY 10/13/20 22 Active Motegrity 2 mg tab TAKE 1 TABLET BY MOUTH DAILY 07/26/20 Active zolpidem (AMBIEN) 10 mg tablet TAKE 1 TABLET BY MOUTH AT BEDTIME NEEDED FOR INSOMNIA 10/17/20 Active prochlorperazine (Compazine) 10 mg tabletIndications :Adenoid cystic carcinoma of nasopharynx, NOS Take 1 tablet (10 mg) by mouth every 6 (six) hours as needed for nausea or vomiting (if not controlled by Ondansetron). 60 tablet 3 12/17/19 Active lisinopril (PRINIVIL,ZESTRIL ) 40 mg tablet Take 1 tablet (40 mg) by mouth every morning. 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 another dose into the other nostril after 2 minutes if the patient does not respond 2 each 01/21/20 Active Additional Information Patient not taking.Reason: No longer taking, Reported on 02/08/2024 pen needle, diabetic (Easy Comfort Pen [place]) 31 gauge x 5/16" ndleIndications:T ype 2 diabetes mellitus with hyperglycemia Use to inject insulin 4 times a day 100 each 1 02/01/20 Active lidocaine (XYLOCAINE) 20 mg/mL (2%) viscous solutionIndicatio ns:Adenocarcinoma of nasopharynx Swish and swallow 5 mL every 6 (six) hours as needed (painful swallowing). 100 mL 3 02/05/20 Active Additional Information Patient not taking.Reason: No longer taking, Reported on 02/08/2024 fluticasone propionate (FLONASE) 50 mcg/spray nasal sprayIndications: Adenoid cystic carcinoma of nasopharynx, NOS Inhale 2 sprays (100 mcg) into each nostril twice daily. 11.1 mL 02/05/20 Active allopurinol (ZYLOPRIM) 300 mg tabletIndications :prevention of acute gout attack Take 1 tablet (300 mg) by mouth twice daily. Active colchicine (COLCRYS) 0.6 mg tabletIndications :prevention of acute gout attack Take 1 tablet (0.6 mg) by mouth daily. Active dicyclomine (BENTYL) 10 mg capsule Take 1 capsule (10 mg) by mouth 3 (three) times a day. Active insulin regular hum U-500 conc (HumuLIN R U-500, Conc, Kwikpen) 500 unit/mL (3 mL) insulin penIndications:Ty pe 2 diabetes mellitus without complication Inject 70-180 Units under the skin daily with breakfast AND 40-105 Units daily before lunch AND 35-95 Units daily before dinner. 30 mL 11 02/17/20 Active Additional Information Patient taking differently: Inject 14-190 Units under the skin daily with breakfast AND 100-145 Units daily before lunch AND 60-95 Units daily before dinner., Reason: Other, Informant: Self, Reported on 07/28/2023 pseudoephedrine (Sudafed) 30 mg tabletIndications :Chronic pain Take 1 tablet (30 mg) by mouth every 8 (eight) hours as needed for congestion. 60 tablet 02/27/20 Active Additional Information Patient not taking.Reason: No longer taking, Informant: Self, Reported on 12/30/2023 oxyCODONE-acetami nophen (Percocet) 5 mg-325 mg per tabletIndications :Cancer associated pain Take 1 tablet by mouth 2 (two) times a day as needed for severe pain. 60 tablet 03/04/20 Active Additional Information Patient not taking.Reason: No longer taking, Informant: Self, Reported on 12/30/2023 gabapentin (NEURONTIN) 800 mg tabletIndications :Chronic pain TAKE 1 TABLET(800 MG) BY MOUTH EVERY 8 HOURS 90 tablet 04/09/20 Active promethazine-dext romethorphan (PROMETHAZINE-DM) 6.25-15 mg/5 mL syrup TAKE 5 ML BY MOUTH EVERY 6 HOURS NEEDED FOR COUGH 03/30/20 Active benzonatate (TESSALON) 100 mg capsule Take 1 capsule (100 mg) by mouth as needed. 03/26/20 Active spironolactone (ALDACTONE) 25 mg tablet TAKE 1 TABLET BY MOUTH EVERY DAY 03/27/20 Active metoprolol succinate (TOPROL XL) 100 mg 24 hr tablet TAKE 1 TABLET BY MOUTH TWICE DAILY 02/25/20 23 Active blood-glucose sensor (FreeStyle Young 3 Sensor) kitIndications:Ty pe 2 diabetes mellitus without complication Use to check glucose continuously every 14 days 3 each 3 07/28/20 23 Active DULoxetine (Cymbalta) 60 mg capsuleIndication s:Neuropathy due to diabetes mellitus Take 1 capsule (60 mg) by mouth daily. 90 capsule 3 07/28/20 23 Active Additional Information Patient not taking.Reason: No longer taking, Informant: Self, Reported on 12/30/2023 tirzepatide (Mounjaro) 5 mg/0.5 mL pnijIndications:T ype 2 diabetes mellitus without complication Inject 5 mg under the skin every 7 days. After about 3 doses, notify coil shaper if you are feeling well and we can increase the dose. 2 mL 1 08/02/20 Active Additional Information Patient not taking.Reason: No longer taking, Reported on 02/08/2024 lactulose (CHRONULAC) 10 gram/15 mL solution Take 30 mL (20 g) by mouth as needed. 05/25/20 Active HYDROcodone-aceta minophen (NORCO) 10 mg-325 mg per tablet Take 1 tablet by mouth every 8 (eight) hours as needed for moderate pain. 11/07/19 16 Active Victoza 2-Ze 0.6 mg/0.1 mL (18 mg/3 mL) pnij injectionIndicati ons:Type 2 diabetes mellitus without complication Inject 0.3 mL (1.8 mg) under the skin daily. 9 mL 3 12/15/19 23 023 Discontinued( erapy completed) ondansetron (ZOFRAN) 8 mg tabletIndications :Adenoid cystic carcinoma of nasopharynx, NOS Take 1 tablet (8 mg) by mouth every 8 (eight) hours as needed for nausea or vomiting. 30 tablet 3 02/05/20 23 024 enoxaparin (LOVENOX) 120 mg/0.8 mL prefilled syringeIndication s:Deep venous thrombosis <Unspecified side> Inject 0.8 mL (120 mg) under the skin every 12 (twelve) hours. 60 each 02/13/20 23 023 Discontinued gabapentin (NEURONTIN) 800 mg tabletIndications :Chronic pain TAKE 1 TABLET(800 MG) BY MOUTH EVERY 8 HOURS 90 tablet 03/02/20 23 023 Discontinued(Re order) cefPODoxime (VANTIN) 200 mg tablet Take 1 tablet (200 mg) by mouth twice daily. 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 84 tablet 03/31/20 23 023 Discontinued( erapy completed) metFORMIN (GLUCOPHAGE) 1000 mg tablet TAKE 1 TABLET BY MOUTH IN THE MORNING AND IN THE EVENING WITH MEALS 03/10/20 23 023 Discontinued( erapy completed) oxyCODONE-acetami nophen (PERCOCET) 2.5-325 mg per tablet 03/20/20 23 023 Discontinued(Du plicate order) predniSONE (DELTASONE) 10 mg tablet TWICE DAILY 03/26/20 23 023 Discontinued(Ot her/Not Applicable) hydrocortisone [...] the skin every 7 days. 3 mL 05/26/20 23 023 Discontinued(Do se adjustment) semaglutide 2 mg/dose (8 mg/3 mL) pnijIndications:T ype 2 diabetes mellitus with hyperglycemia Inject 2 mg under the skin every 7 days. 3 mL 5 06/22/20 23 023 Discontinued(Al ternate therapy) hydrocortisone (CORTEF) 10 mg tabletIndications :Abnormal cortisol TAKE 2 TABLETS FOR PAIN DAILY WITH BREAKFAST AND 1 TABLET BY MOUTH WITH DINNER 90 tablet 07/22/20 23 023 Discontinued( erapy completed) Active Problems Problem Noted Date Diagnosed Date nursing home use of anticoagulant 03/31/2023 Acute thrombosis of [...] percent indicating poor diabetic control 01/12/2023 023 nursing home current use of systemic steroid 12/10/2022 05/25/2023 Encounters Date Type Department Care Team Description 02/08/2024 8:45 AM CDT Follow-Up MD [facility] - [facility] [address] [place] [id number] Kenya Agarwal MD Adenoid cystic carcinoma of nasopharynx, NOS (Primary Dx) 02/08/2024 Travel 12/23/2023 Orders Only MD [facility] [address] [place] [id number] Red Berman APRN Adenoid cystic carcinoma of nasopharynx, NOS (Primary Dx) 12/10/2023 10:45 AM [employer]ERCIAL LAWN SPECIALIST Ancillary Procedure MD [facility] [address] [place] [address] Red Berman APRN Adenoid cystic carcinoma of nasopharynx, NOS 12/10/2023 Travel 11/30/2023 Travel 11/23/2023 Orders Only MD [facility] [address] [place] [address] Red Berman, CARDIOVASCULAR OPERATING ROOM NURSE Adenoid cystic carcinoma of nasopharynx, NOS (Primary Dx) 11/23/2023 Telephone [facility] - Head & Neck Surgery [address] [place] [address] Allyssa Silva, JCARLOS 11/18/2023 Orders Only [facility] - Head & Neck Surgery [address] [place] [address] Red Berman, CARDIOVASCULAR OPERATING ROOM NURSE Adenoid cystic carcinoma of nasopharynx, NOS (Primary Dx) 11/18/2023 Documentation [facility] [address] [place] [address] Main dg, 6th [place] [address] Brigitte Carver RN 11/16/2023 Telephone [facility] [address] [place] [address] Main dg, 6th [place] [address] Brigitte Carver, RN Follow-up 11/03/2023 Telephone [facility] [address] [place] [address] Main dg, 6th [place] [address] Brigitte Carver, RN Appointment ([facility] Outpatient Endocrine ) 10/18/2023 9:00 AM [employer]ER[employer] LAWN SPECIALIST Procedure visit [facility] [address] [place] [address] Main dg, 6th [place] [address] Eliseo Crum MD Type 2 diabetes mellitus with hyperglycemia (Primary Dx) 10/18/2023 Telephone [facility] [address] [place] [address] Main dg, 6th [place] [address] Brigitte Carver, RN Follow-up 10/11/2023 Telephone [facility] [address] [place] [address] Main dg, 6th [place] [address] No Andrade MD 10/08/2023 Orders Only [facility] - Surgical Oncology [facility] Main dg, 10th Floor, [place] [address] Red Berman, BORIS Adenoid cystic carcinoma of nasopharynx, NOS (Primary Dx) 09/21/2023 Telephone [facility] [address] [place] [address] Main dg, 6th [place] [address] No Andrade MD 09/13/2023 10:15 AM COMMERCIAL LAWN SPECIALIST Ancillary Procedure MD [facility] Moses[address] [place] [address] Lindy Montenegro PA Adenoid cystic carcinoma of nasopharynx, NOS 09/13/2023 Travel 09/10/2023 Telephone [facility] - Radiation Oncology [address] [place] [address] Lindy Montenegro PA 08/30/2023 10:30 AM CDT Procedure visit Endocrine [address] Main [facility], 6th [place] [address] Eliseo Crum MD Type 2 diabetes mellitus with hyperglycemia (Primary Dx); Current use of insulin; Hemoglobin A1c greater than 10 percent indicating poor diabetic control; Alanine aminotransferase above reference range; Adult BMI 60-69.9 08/16/[address] [address] Lorena Hdez APRN Adenoid cystic carcinoma of nasopharynx, NOS 08/02/2023 Orders Only [facility] [address] [place] [address] Main dg, 6th [place] [address] Marily Garcia APRN Type 2 diabetes mellitus without complication (Primary Dx) 07/28/2023 9:15 AM CDT Telemedicine Endocrine [address] Main [facility], 6th [place] [address] No Andrade MD Type 2 diabetes mellitus without complication (Primary Dx); Neuropathy due to diabetes mellitus 07/22/2023 Documentation [facility] [address] [place] [address] Main dg, 9th [place] [address] Bridget Allison, RN 07/20/2023 Refill [facility] [address] [place] [address] Main dg, 6th [place] [address] Marily Garcia APRN Abnormal cortisol 07/06/2023 Telephone [facility] [address] [place] [address] Main dg, 6th [place] [address] Marily Garcia APRN 07/02/2023 Orders Only [facility] Surgical Oncology [address] [place] [address] Main dg, 10th Floor, [place] [address] Red Berman APRN Adenocarcinoma of nasopharynx (Primary Dx) 06/22/2023 10:00 AM CDT Procedure visit [facility] [address] [place] [address] Main [facility], 6th [place] [address] No Andrade MD Type 2 diabetes mellitus with hyperglycemia (Primary Dx) 06/22/2023 Orders Only [facility] [address] [place] [address] Main dg, 6th [place] [address] No Andrade MD Type 2 diabetes mellitus with hyperglycemia (Primary Dx) 06/21/2023 9:00 AM CDT Telephone [facility] [address] [place] [address], 6th [place] [address] Angela Lopes APRN Needle, Pamela A, RN 06/17/2023 1:00 PM CDT Treatment MD [facility] [place] - Speech Pathology [address] [place] [address] Monico Poole MD Jimenez, Sarah, [employer]APNA-INTELLECTUAL PROPERTY LAWYER Dysarthria (Primary Dx); Oropharyngeal dysphagia 06/17/2023 Documentation MD [facility] - Speech Pathology [address] [place] [address] Sheba Olivarez CCC-INTELLECTUAL PROPERTY LAWYER 06/17/2023 Documentation MD [facility] - Speech Pathology [address] [place] [address] Sheba Olivarez, [facility]INTELLECTUAL PROPERTY LAWYER 06/17/2023 Travel 06/16/2023 Telephone [facility] - Surgical Oncology [address] [place] [address] Main [facility], 10th Floor, Elevator [place] [phone] Red Berman, CARDIOVASCULAR OPERATING ROOM NURSE 06/08/2023 Documentation [facility] [address] [place] [address] Main [facility], 6th [place] [address] Jenna Alvarado, RN 06/06/2023 Rohith GRIFFIN [facility] [address] [place] [address] Lorena Hdez, BORIS Adenoid cystic carcinoma of nasopharynx, NOS 05/26/2023 Telephone [facility] [address] [place] [address] Main [facility], 6th [place] [address] Marily Garcia APRN 05/26/2023 Telephone [facility] [address] [place] [address] Main [facility], 6th [place] [address] Jenna Alvarado, RN 05/25/2023 Orders Only [facility] [address] [place] [address] Main [facility], 6th [place] [address] Marily Garcia, CARDIOVASCULAR OPERATING ROOM NURSE Type 2 diabetes mellitus with hyperglycemia (Primary Dx); Abnormal cortisol; Long-term (current) use of insulin 05/24/2023 11:00 AM CDT Telephone [facility] [address] [place] [address] Main [facility], 6th [place] [address] No Andrade MD Needle, Pamela A RN 05/21/2023 Documentation [facility] [address] [place] [address] Main [facility], 6th [place] [address] Akil Edwards, RN 05/21/2023 Documentation [facility] [address] [place] [address] Main [facility], 4th [place] [address] Randall Ferrer 05/18/2023 2:00 PM CDT Telephone [facility] [address] [place] [address], [facility] [place] [address] No Andrade MD Needle, Pamela A, RN 05/11/2023 Telephone [facility] [address] [place] [address], [facility] [place] [address] Marily Garcia APRN 05/02/2023 Telephone [facility] [address] [place] [address], [facility] [place] [address] No Andrade MD 04/22/2023 3:40 PM CDT Follow-Up MD [facility] - Thoracic [facility] [address] [place] [address] Vaibhav Rosario MD Adenoid cystic carcinoma of nasopharynx, NOS 04/22/2023 2:30 PM CDT Follow-Up [facility] - Radiation Oncology [address] [place] [address] Winter Luu MD Adenoid cystic carcinoma of nasopharynx, NOS 04/22/2023 12:15 PM CDT Ancillary Procedure MD [facility] [address] [address] Winter Luu MD Adenoid cystic carcinoma of nasopharynx, NOS 04/22/2023 Travel 04/09/2023 Refill [facility] [address] [place] [address], 4th [place] [address] Kyung Thomas, manager terminal pain 04/08/2023 Refill [facility] [address] [place] [address], 4th [place] [address] Miguel Gordon MD Chronic pain 03/31/2023 10:30 AM CDT Office Visit [facility] - Hematology [address] [facility], 6th [place] [address] Rosana Harkins MD nursing home use of anticoagulant (Primary Dx); Adenoid cystic carcinoma of nasopharynx, NOS; Deep venous thrombosis <Unspecified side>; Acute thrombosis of right axillary vein; Bilateral acute thrombosis of basilic veins; Thrombosis of left cephalic vein 03/31/2023 Travel after 03/27/2023 Surgical History Surgery Date Site/Laterality Comments APPENDECTOMY [id number] COLONOSCOPY [id number] CHOLECYSTECTOMY [id number] KNEE ARTHROPLASTY Right SHOULDER SURGERY 050@2011 Left UPPER GASTROINTESTINAL ENDOSCOPY [id number] SECTION, CLASSIC 11/01/1984 - 10/31/1985 PARTIAL HYSTERECTOMY 03/01/2012 - 03/31/2012 MYRINGOTOMY WITH ASPIRATION AND INSERTION PE TUBES 11/01/2019 - 10/31/2020 SLEEVE GASTROPLASTY N/A Medical History Medical History Date Comments Hypertension [id number] Hyperlipidemia [id number] Allergic rhinitis 91982111 Fatty liver [id number] Gastric reflux [id number] Gastric ulcer [id number] Crohn's disease [id number] Gout [id number] Type 2 diabetes mellitus wit h hyperglycemia 1594411 Anxiety 59648506 Chronic obstructive pulmonary disease On home supplemental [...] Date Smoking Tobacco: Former Cigarettes 0.3 0.5 0 05/1987 - 1987 Smokeless Tobacco: Never Tobacco Cessation:Counseling Given: Not Answered Alcohol Use Standard Drinks/Week Comments Not Currently 0 (1 standard drink = 0.6 oz pur e alcohol) Sex and Gender Information Value Date Recorded Sex Assigned at Female 11/12/2022 2:07 PM [employer]WN SPECIALIST Gender Identity Female 11/12/2022 2:07 PM [employer]WN SPECIALIST Sexual Orientation Not on file Job Start Date Occupation Industry Not on file Not on file Not on file Obstetrics History Last Filed Vital Signs Vital Sign Reading Time Taken Comments Blood Pressure 113/75 02/08/2024 11:07 AM CDT Pulse 90 02/08/2024 11:07 AM CDT Temperature 36.7 C (98.1 F) 02/08/2024 1 1:07 AM CDT Respiratory Rate 18 02/08/2024 11:0 7 AM CDT Oxygen Saturation 93% 02/08/2024 11: 07 AM CDT Inhaled Oxygen Concentration - - Weight 145.3 kg (320 lb 5.3 oz) 024 10:48 AM COMMERCIAL LAWN SPECIALIST Height 155 cm (5' 1.02") 09/13/2023 10: 01 AM COMMERCIAL LAWN SPECIALIST Body Mass Index 60.48 09/13/2023 10:01 AM COMMERCIAL LAWN SPECIALIST Plan of Treatment Upcoming Encounters Date Type Department Care Team (Late st Contact Info) Description 08/17/2024 9:30 AM CDT Lab MD [facility] [address] [place] [address] Kenya Agarwal MD [address] [place] [address] 08/17/2024 10:15 AM CDT Ancillary Procedure MD [facility] [address] [address] Kenya Agarwal MD [address] [place] [address] 08/17/2024 2:00 PM CDT Follow-Up [facility] - Radiation Oncology [address] [place] [address] Winter Luu MD [address] [place] [address] Health Maintenance Due Date Last Done Comments COVID-19 Vaccine (2022-12 4 season) 2023 07/11/2021, 01/01/2021, 12/03/2020 Influenza Vaccine 07/02/2024 09/21/2022, 11/13/2020 Medical Devices Implanted Type Area Fiberglass Container Winding Operator Device Identifier Shelf Expiration Date Model / Serial / Lot Gastric Sleeve Sleeve Midline: Stomach Procedures Procedure Name Priority Date/Time Associated Diagnosis Comments .CBC Routine 02/08/2024 12:38 PM CDT Adenoid cystic carcinoma of nasopharynx, NOS VITAMIN D 25 HYDROXY LEVEL Routine 02/07 12:38 PM CDT Adenoid cystic carcinoma of nasopharynx, NOS COMPREHENSIVE METABOLIC PANEL Routine 02/08/2024 12:38 PM CDT Adenoid cystic carcinoma of nasopharynx, NOS COMPLETE BLOOD COUNT W/ DIFFERENTIAL Routine 02/08/2024 12:38 PM CDT Adenoid cystic carcinoma of nasopharynx, NOS PROLACTIN Routine 02/08/2024 12:38 PM CDT Adenoid cystic carcinoma of nasopharynx, NOS INSULIN-LIKE GROWTH FACTOR 1 Routine 02/08/2024 12:38 PM CDT Adenoid cystic carcinoma of nasopharynx, NOS TRIIODOTHYRONINE Routine 02/08/2024 12:3 8 PM CDT Adenoid cystic carcinoma of nasopharynx, NOS FREE THYROXINE Routine 02/08/2024 12:38 PM CDT Adenoid cystic carcinoma of nasopharynx, NOS THYROID STIMULATING HORMONE Routine 02/08/2024 12:38 PM CDT Adenoid cystic carcinoma of nasopharynx, NOS LUTEINIZING HORMONE Routine 02/08/2024 1 2:38 PM CDT Adenoid cystic carcinoma of nasopharynx, NOS FOLLICLE STIMULATING HORMONE LEVEL Routine 02/08/2024 12:38 PM CDT Adenoid cystic carcinoma of nasopharynx, NOS ESTRADIOL LEVEL Routine 02/08/2024 12:38 PM CDT Adenoid cystic carcinoma of nasopharynx, NOS ADRENOCORTICOTROPIC HORMONE Routine 02/08/2024 12:38 PM CDT Adenoid cystic carcinoma of nasopharynx, NOS CORTISOL, TOTAL Routine 02/08/2024 12:38 PM CDT Adenoid cystic carcinoma of nasopharynx, NOS POC GLUCOSE SCREEN Routine 12/10/2023 12 :53 PM COMMERCIAL LAWN SPECIALIST MRI ORBITS W WO CONTRAST Routine 024 12:53 PM COMMERCIAL LAWN SPECIALIST Adenoid cystic carcinoma of nasopharynx, NOS MRI ORBITS W WO CONTRAST Routine 023 11:51 AM COMMERCIAL LAWN SPECIALIST Adenoid cystic carcinoma of nasopharynx, NOS CORTISOL, TOTAL Routine 09/13/2023 9:29 AM COMMERCIAL LAWN SPECIALIST Adenoid cystic carcinoma of nasopharynx, NOS ADRENOCORTICOTROPIC HORMONE Routine 09/13/2023 9:29 AM COMMERCIAL LAWN SPECIALIST Adenoid cystic carcinoma of nasopharynx, NOS ESTRADIOL LEVEL Routine 09/13/2023 9:29 AM COMMERCIAL LAWN SPECIALIST Adenoid cystic carcinoma of nasopharynx, NOS FOLLICLE STIMULATING HORMONE LEVEL Routine 09/13/2023 9:29 AM COMMERCIAL LAWN SPECIALIST Adenoid cystic carcinoma of nasopharynx, NOS LUTEINIZING HORMONE Routine 09/13/2023 9 :29 AM COMMERCIAL LAWN SPECIALIST Adenoid cystic carcinoma of nasopharynx, NOS THYROID STIMULATING HORMONE Routine 09/13/2023 9:29 AM COMMERCIAL LAWN SPECIALIST Adenoid cystic carcinoma of nasopharynx, NOS TRIIODOTHYRONINE Routine 09/13/2023 9:29 AM COMMERCIAL LAWN SPECIALIST Adenoid cystic carcinoma of nasopharynx, NOS FREE THYROXINE Routine 09/13/2023 9:29 AM COMMERCIAL LAWN SPECIALIST Adenoid cystic carcinoma of nasopharynx, NOS INSULIN-LIKE GROWTH FACTOR 1 Routine 09/13/2023 9:29 AM COMMERCIAL LAWN SPECIALIST Adenoid cystic carcinoma of nasopharynx, NOS PROLACTIN Routine 09/13/2023 9:29 AM COMMERCIAL LAWN SPECIALIST Adenoid cystic carcinoma of nasopharynx, NOS ADRENOCORTICOTROPIC [...] of nasopharynx, NOS SERUM CREATININE Routine 04/22/2023 12:2 8 PM CDT Adenoid cystic carcinoma of nasopharynx, NOS BLOOD UREA NITROGEN Routine 04/22/2023 1 2:28 PM CDT Adenoid cystic carcinoma of nasopharynx, NOS CREATININE Routine 04/22/2023 12:28 PM CDT Adenoid cystic carcinoma of nasopharynx, NOS ELECTROLYTE PANEL Routine 04/22/2023 12: 28 PM CDT Adenoid cystic carcinoma of nasopharynx, [...] of nasopharynx, NOS LUTEINIZING HORMONE Routine 04/22/2023 1 2:28 PM CDT Adenoid cystic carcinoma of nasopharynx, NOS THYROID STIMULATING HORMONE Routine 04/22/2023 12:28 PM CDT Adenoid cystic carcinoma of nasopharynx, NOS TRIIODOTHYRONINE Routine 04/22/2023 12:2 8 PM CDT Adenoid cystic carcinoma of nasopharynx, NOS FREE THYROXINE Routine 04/22/2023 12:28 PM CDT Adenoid cystic carcinoma of nasopharynx, NOS INSULIN-LIKE GROWTH FACTOR 1 Routine 04/22/2023 12:28 PM CDT Adenoid cystic carcinoma of nasopharynx, NOS PROLACTIN Routine 04/22/2023 12:28 PM CDT Adenoid cystic carcinoma of nasopharynx, NOS after 03/27/2023 Results * (ABNORMAL) .CBC (02/08/2024 12:38 PM CDT) Only the most recent of2 resultswithin the time period is included. Pathologist [facility] White Blood Cell 8.1 4.1 - 10.5 K/uL 02/08/2024 12:44 PM [facility] Red Blood Cell 4.93 3.99 - 5.46 M/uL 02/08/2024 12:44 PM [facility] Hemoglobin 14.8 12.2 - 15.3 g/dL 02/08/2024 12:44 PM [facility] Hematocrit 46.1 36.4 - 46.8 % 02/08/2024 12:44 PM [facility] Mean Cell Volume 94 82 - 99 fL 02/08/2024 12:44 PM [facility] Mean Cell Hemoglobin 30.0 26.6 - 33.2 pg 02/08/2024 12:44 PM [facility] Mean Cell Hemoglobin Concentration 32.1 31.1 - 35.2 g/dL 02/08/2024 12:44 PM [facility] RDW-SD 43.9 37.5 - 49.7 fL 02/08/2024 12:44 PM [facility] Red Cell Diameter Width 12.5 11.6 - 15.5 % 02/08/2024 12:44 PM [facility] Platelet 230 160 - 397 K/uL 02/08/2024 12:44 PM [facility] Mean Platelet Volume 10.1 9.1 - 12.6 fL 02/08/2024 12:44 PM [facility] Neutrophil % 64.1 43.2 - 72.7 % 02/08/2024 12:44 PM [facility] Lymphocyte % 26.2 16.8 - 46.2 % 02/08/2024 12:44 PM [facility] Monocyte % 7.5 5.1 - 12.5 % 02/08/2024 12:44 PM [facility] Eosinophil % 1.7 0.4 - 6.3 % 02/08/2024 12:44 PM [facility] Basophil % 0.5 0.2 - 1.4 % 02/08/2024 12:44 PM [facility] IGRE % 0.0(L) 0.1 - 1.5 % 02/08/2024 12:44 PM [facility] Comment:The IGRE% includes M etamyelocytes, Myelocytes and Promyelocytes. Neutrophil Abs 5.20 1.95 - 7.25 K/uL 02/08/2024 12:44 PM [facility] Lymphocyte Abs 2.13 1.01 - 3.24 K/uL 02/08/2024 12:44 PM [facility] Monocyte Abs 0.61 0.24 - 0.85 K/uL 02/08/2024 12:44 PM [facility] Eosinophil Abs 0.14 0.02 - 0.50 K/uL 02/08/2024 12:44 PM [facility] Basophil Abs 0.04 0.02 - 0.09 K/uL 02/08/2024 12:44 PM CDT [place] IG Abs 0.00(L) 0.01 - 0.12 K/uL 02/08/2024 12:44 PM CDT [place] Blood Peripheral blood specimen / Unknown Venipuncture / Unknown 02/08/2024 12:38 PM CDT 02/08/2024 12:38 PM CDT Kenya Agarwal MD LAB BLOOD ORDERABLES Performing Organization Address City/[facility]/ZIP Co de Phone Number [facility] [place] [address], [facility] [address] [place] [address] * Insulin-Like Growth Factor I (02/08/2024 12:38 PM CDT) Only the most recent of3 resultswithin the time period is included. [facility] IGF-1, LC/MS, S 113 37 - 208 ng/mL 02/11/2024 11:33 AM CDT [facility] DORINAAXEL IGF Z-score 0.39 -2.0 - 2.0 SD 02/11/2024 11:33 AM CDT [facility] [place] Comment: ADDITIONAL INFORMATION This test was developed and its performance characteristics determined by [facility] in a manner consistent with CLIA requirements. This test has not been cleared or approved by the U.S. Food and Drug Administration. Test Performed by: [facility] [place] [id number] Plumbing Installer: Yonathan Guzman M.D. Ph.D.; CLIA# [id number] Blood Peripheral blood specimen / Unknown Venipuncture / Unknown 02/08/2024 12:38 PM CDT 02/08/2024 12:38 PM CDT Kenya Agarwal MD LAB BLOOD ORDERABLES [facility] [place] * (ABNORMAL) Comprehensive Metabolic Panel (02/08/2024 12:38 PM CDT) [facility] Bilirubin Total 0.3 0.0 - 1.2 mg/dL 02/08/2024 1:21 PM [facility] Comment:Indocyanine Green (I CG) may cause falsely elevated bilirubin results. Total and direct bilirubin must not be measured from samples containing indocyanine green. False elevation of total bilirubin can be seen in patients with IgG concentrations above 28 g/L. eGFR 108 >=60 mL/min/1. 73 sq. m 02/08/2024 1:21 PM [facility] Comment: The eGFRcr is calculated with the [...] category. KDIGO guidelines provide the following GFR categories. Stage / Description / GFR mL/min/1.73 m2: G1* / Normal or high / >= 90 G2* / Mildly decreased / 60-89 G3a / Mildly to moderately decreased / 45-59 G3b / Moderately to severely decreased / 30-44 G4 / Severely decreased / 15-29 G5 / Kidney failure / <15 *In the absence of evidence of kidney damage, neither G1 nor G2 fulfill criteria for CKD. Tot Protein 7.7 6.4 - 8.3 gm/dL 02/08/2024 1:21 PM [facility] Calcium Level Total 9.6 8.2 - 10.2 mg/dL 02/08/2024 1:21 PM [facility] Alkaline Phosphatase 140(H) 35 - 104 U/L 02/08/2024 1:21 PM [facility] Albumin Level 4.2 3.5 - 5.2 gm/dL 02/08/2024 1:21 PM [facility] AST 17 <=32 U/L 02/08/2024 1:21 PM [facility] ALT 20 <=33 U/L 02/08/2024 1:21 PM [facility] Sodium Level 139 136 - 145 mmol/L 02/08/2024 1:21 PM [facility] Potassium Level 3.8 3.4 - 4.5 mmol/L 02/08/2024 1:21 PM [facility] Chloride 100 98 - 107 mmol/L 02/08/2024 1:21 PM [facility] CO2 26 22 - 29 mmol/L 02/08/2024 1:21 PM [facility] Anion Gap 13 4 - 14 mmol/L 02/08/2024 1:21 PM [facility] Creatinine 0.53 0.51 - 0.95 mg/dL 02/08/2024 1:21 PM [facility] BUN 7 6 - 23 mg/dL 02/08/2024 1:21 PM [facility] Glucose Level 179(H) 70 - 99 mg/dL 02/08/2024 1:21 PM [facility] Comment: Effective 05/27/16, the glucose reference intervals have been updated based on [place] [employer] guidelines (Standards of Medical Care in Diabetes 2016. Diabetes Care 2016; 39: S13-S22). Fasting blood glucose: Normal: 70-99 mg/dL Impaired fasting glucose (increased risk for diabetes or pre-diabetes): 100-125 mg/dL Diabetes mellitus: >/=126 mg/dL Random blood glucose: Normal: 70-199 mg/dL Note: Random glucose >100 mg/dL is associated with increased risk for diabetes. Blood Peripheral blood specimen / Unknown Venipuncture / Unknown 02/08/2024 12:38 PM CDT 02/08/2024 12:38 PM CDT Kenya Agarwal MD LAB BLOOD ORDERABLES [facility] [place] [address], [facility] [address] [place] [address] * ACTH (02/08/2024 12:38 PM CDT) Only the most recent of4 resultswithin the time period is included. ACTH 20 7 - 63 pg/mL 02/08/2024 1 :20 PM CDT [place] Blood Peripheral blood specimen / Unknown Venipuncture / Unknown 02/08/2024 12:38 PM CDT 02/08/2024 12:38 PM CDT [facility] - 02/08/2024 1:20 PM CDT Reference range established based on adult population (7 - 10am draws). No established reference values for p.m. draws. Results greater than 1826 pg/mL may not be reliable due to matrix effect with extended dilution as it exceeds the laminating machine feeder's recommended limit. ACTH reference intervals are established for the morning hours from 7-10 am. Due to the circadian rhythm of ACTH levels in plasma, the sample collection time must be noted. Caution should be exercised when interpreting such values and done in conjunction with clinical context. Kenya Agarwal MD LAB BLOOD ORDERABLES Performing Organization Address City/[facility]/ZIP Co de Phone Number [address], [address] [address] * (ABNORMAL) Vitamin D 25OH (02/08/2024 12:38 PM CDT) [facility] Vitamin D 25 OH 17(L) 30 - 100 ng/mL 02/08/2024 1:21 PM CDT [place] Blood Peripheral blood specimen / Unknown Venipuncture / Unknown 02/08/2024 12:38 PM CDT 02/08/2024 12:38 PM CDT [facility] - 02/08/2024 1:21 PM CDT Reference Range: Deficiency: <=20 ng/mL Insufficiency: 21-29 ng/mL Sufficiency: 30-100 ng/mL Potential toxicity: >100 ng/mL Kenya Agarwal MD LAB BLOOD ORDERABLES [address], [address] [address] * (ABNORMAL) Prolactin (02/08/2024 12:38 PM CDT) Only the most recent of3 resultswithin the time period is included. [facility] Prolactin Level 32.8(H) 4.8 - 23.3 ng/mL 02/08/2024 8:55 PM CDT [facility] Blood Peripheral blood specimen / Unknown Venipuncture / Unknown 02/08/2024 12:38 PM CDT 02/08/2024 12:38 PM CDT Narrative [facility] - 02/08/2024 8:55 PM CDT Results greater than 4700.0 ng/mL may not be reliable due to matrix effect with extended dilution as it exceeds the laminating machine feeder s recommended limit. Caution should be exercised when interpreting such values and done in conjunction with clinical context. Kenya Agarwal MD LAB BLOOD ORDERABLES Performing Organization Address [facility] Co de Phone Number [facility] Unless otherwise noted, all lab tests performed by: Division of Pathology and Laboratory Medicine [address] [place] [id number] * Estradiol level (02/08/2024 12:38 PM CDT) Only the most recent of3 resultswithin the time period is included. Estradiol <11 pg/mL 02/08/2024 8:5 0 PM CDT [facility] Blood Peripheral blood specimen / Unknown Venipuncture / Unknown 02/08/2024 12:38 PM CDT 02/08/2024 12:38 PM CDT Narrative [facility] - 02/08/2024 8:50 PM CDT Estradiol Reference Ranges Adult Female: Follicular: 31 - 90 pg/mL Luteal: 60 - 232 pg/mL Ovulation: 60 - 533 pg/mL Postmenopause: < 138 pg/ml Patients treated with Fulvestrant will show falsely increase in estradiol concentrations due to cross-reaction. For further information or assistance, please contact pathologist. Kenya Agarwal MD LAB BLOOD ORDERABLES Performing Organization Address [facility] Co de Phone Number [facility] Unless otherwise noted, all lab tests performed by: Division of Pathology and Laboratory Medicine [address] [place] [id number] * T3 (02/08/2024 12:38 PM CDT) Only the most recent of3 resultswithin the time period is included. Triiodothyronine 122 80 - 200 ng/dL 02/08/2024 1:21 PM CDT [place] Blood Peripheral blood specimen / Unknown Venipuncture / Unknown 02/08/2024 12:38 PM CDT 02/08/2024 12:38 PM CDT Kenya Agarwal MD LAB BLOOD ORDERABLES Performing Organization Address City/[facility]/ZIP Co de Phone Number [address], [facility] [address] [place] [address] * TSH (02/08/2024 12:38 PM CDT) Only the most recent of3 resultswithin the time period is included. Thyroid Stimulating Hormone 2.50 0.27 - 4.20 mcunit/mL 02/08/2024 1:21 PM CDT [place] Blood Peripheral blood specimen / Unknown Venipuncture / Unknown 02/08/2024 12:38 PM CDT 02/08/2024 12:38 PM CDT Kenya Agarwal MD LAB BLOOD ORDERABLES Performing Organization Address City/[facility]/ZIP Co de Phone Number [address], [facility] [address] [place] [address] * Free T4 (02/08/2024 12:38 PM CDT) Only the most recent of3 resultswithin the time period is included. T4 (Thyroxine) Free 1.13 0.93 - 1.70 ng/dL 02/08/2024 1:21 PM CDT [place] Blood Peripheral blood specimen / Unknown Venipuncture / Unknown 02/08/2024 12:38 PM CDT 02/08/2024 12:38 PM CDT Kenya Agarwal MD LAB BLOOD ORDERABLES [address], [facility] [address] [place] [address] * LH (02/08/2024 12:38 PM CDT) Only the most recent of3 resultswithin the time period is included. Luteinizing Hormone 15.9 mIU/mL 02/08/2024 8:50 PM CDT [facility] Blood Peripheral blood specimen / Unknown Venipuncture / Unknown 02/08/2024 12:38 PM CDT 02/08/2024 12:38 PM CDT Narrative [facility] - 02/08/2024 8:50 PM CDT Luteinizing Hormone Reference Ranges Female: Follicular: 2.4 - 12.6 mIU/mL Luteal: 1.0 - 11.4 mIU/mL Ovulation: 14.0 - 95.6 mIU/mL Post-menopause: 7.7 - 58.5 mIU/mL Kenya Agarwal MD LAB BLOOD ORDERABLES Performing Organization Address City/State/[facility] Co de Phone Number [facility] Unless otherwise noted, all lab tests performed by: Division of Pathology and Laboratory Medicine [address] [place] [id number] * FSH Level (02/08/2024 12:38 PM CDT) Only the most recent of3 resultswithin the time period is included. Follicle Stimulating Hormone 33.5 mIU/mL 02/08/2024 8:50 PM CDT [facility] Blood Peripheral blood specimen / Unknown Venipuncture / Unknown 02/08/2024 12:38 PM CDT 02/08/2024 12:38 PM CDT Narrative [facility] - 02/08/2024 8:50 PM CDT Follicle Stimulating Hormone Reference Ranges Female: Follicular: 3.5 - 12.5 mIU/mL Luteal: 1.7 - 7.7 mIU/mL Ovulation: 4.7 - 21.5 mIU/mL Post-menopause: 25.8 - 134.8 mIU/mL Kenya Agarwal MD LAB BLOOD ORDERABLES [facility] Unless otherwise noted, all lab tests performed by: Division of Pathology and Laboratory Medicine [facility] [place] [address] * Cortisol, Total (02/08/2024 12:38 PM CDT) Only the most recent of4 resultswithin the time period is included. Cortisol 8.01 mcg/dL 02/08/2024 1:2 1 PM CDT [place] Blood Peripheral blood specimen / Unknown Venipuncture / Unknown 02/08/2024 12:38 PM CDT 02/08/2024 12:38 PM CDT Narrative [place] - 02/08/2024 1:21 PM CDT Cortisol reference intervals are established for the [...] Afternoon (4-8 pm): 2.47 - 11.9 mcg/dL Kenya Agarwal MD LAB BLOOD ORDERABLES Performing Organization Address City/[facility] Co de Phone Number [facility] [address], [facility] [address] [place] [address] * (ABNORMAL) POC Glucose Screen - Fingerstick (12/10/2023 12:53 PM [facility]) Glucose Screen 151(H) 70 - 99 mg/dL 12/10/2023 12:54 PM [facility] [place] POC Sample Type Capillary 12/10/2023 12:54 PM [facility] [place] Blood 12/10/2023 12:5 3 PM [facility] 12/10/2023 12:54 PM [facility] Narrative [place] - 12/10/2023 12:54 PM [facility] Capillary blood samples, e.g. obtained by fingerstick, may have inaccurate results in patients with decreased peripheral blood flow. Method description: All results are measured using Electrochemistry test methodology. The glucose in the sample mixes with the reagents on the test strip. The reaction produces an electric current. The amount of current produced is proportional to the glucose concentration in the blood. All POC Glucose screen test results, including critical values, must be interpreted and evaluated in the context of the patients' clinical findings. It is recommended to confirm any questionable test results by core lab methodology. Red M Antonella ESCALANTE POCT ORDERABLES - DEVICE [facility] [address], [facility] [address] [place] [address] * MRI Orbits with and without Contrast (12/10/2023 12:53 PM [facility]) Only the most recent of3 resultswithin the time period is included. Anatomical Region Laterality Modality Head Magnetic Resonan ce 12/13/2023 3:28 PM [facility] Impressions 12/13/2023 3:34 PM [facility] Stable treatment change of the left nasopharynx and skull base. ACTIONABLE ITEMS/RECOMMENDATIONS*: None. Narrative 12/13/2023 3:34 PM [facility] FULL RESULT: Examination: MRI ORBITS W WO CONTRAST on 12/10/2023 12:53 PM. 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 COMPARISON: Orbit MRI from 09/13/2023. TECHNIQUE: MRI of the orbits without and with intravenous contrast was performed. FINDINGS: Examination is mildly degraded by patient's motion. The treatment related changes of the left nasopharynx and andres clival skull base are unchanged. The visualized brain including cavernous sinus, Meckel's caves, and the temporal lobes are unremarkable. Chronic opacification of bilateral mastoid air cells and left sphenoid sinus are unchanged. Survey of the neck shows no evidence of enlarged lymph nodes. Remaining marrow signal is normal. Procedure Note Rosine, MD Linda - 12/13/2023 FULL RESULT: Examination: MRI ORBITS W WO CONTRAST on 12/10/2023 12:53 PM. 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 COMPARISON: Orbit MRI from 09/13/2023. TECHNIQUE: MRI of the orbits without and with intravenous contrast wasperformed. FINDINGS: Examination is mildly degraded by patient's motion. The treatment related changes of the left nasopharynx and andres clivalskull base are unchanged. The visualized brain including cavernous sinus, Meckel's caves, and thetemporal lobes are unremarkable. Chronic opacification of bilateral mastoid air cells and left sphenoidsinus are unchanged. Survey of the neck shows no evidence of enlarged lymph nodes. Remaining marrow signal is normal. IMPRESSION: Stable treatment change of the left nasopharynx and skull base. ACTIONABLE ITEMS/RECOMMENDATIONS*: None. Red Berman APRN [facility] MRI ORDERABL ES * .Serum Creatinine (04/22/2023 12:28 PM CDT) Pathologist [facility] Creatinine 0.80 0.51 - 0.95 mg/dL [place] Comment:Testing performed at [facility], [address] [place] [address], [place] [address] Blood 04/22/2023 12:2 8 PM CDT 04/22/2023 12:29 PM CDT [facility] - 04/22/2023 1:04 PM CDT Coordinate all on same day. Ok to schedule 1-2 weeks following 04/14 to coordinate appts Winter Luu MD LAB BLOOD ORDERABL ES [facility] [address], [facility] [address] [place] [address] * Glomerular Filtration Rate (04/22/2023 12:28 PM CDT) eGFR 86 >=60 mL/min/1.7 3 sq. m [place] Comment: The eGFRcr is calculated with the [...] fulfill criteria for CKD. Testing performed at [facility], [address] [place] [address] Blood 04/22/2023 12:2 8 PM CDT 04/22/2023 12:29 PM CDT Narrative [place] - 04/22/2023 1:04 PM CDT Coordinate all on same day. Ok to schedule 1-2 weeks following 04/14 to coordinate appts Winter Luu MD LAB BLOOD ORDERABL ES [address], [facility] [address] [place] [address] * (ABNORMAL) Differential (04/22/2023 12:28 PM CDT) Neutrophil % 86.1(H) 42.0 - 66.0 % [place] Comment:All components of th e Differential performed at [facility], [address] [place] [address] Lymphocyte % 10.9(L) 24.0 - 44.0 % [place] Comment:As part of the Diffe rential testing performed at [facility], [address] [place] [address] Monocyte % 2.3 2.0 - 7.0 % [place] Comment:As part of the Diffe rential testing performed at [facility], [address] [place] [address] Eosinophil % 0.2(L) 1.0 - 4.0 % [place] Comment:As part of the Diffe rential testing performed at [facility], [address] [place] [address], [place] [address] Basophil % 0.2 0.0 - 1.0 % [place] Comment:As part of the Diffe rential testing performed at [facility], [address] [place] [address], [place] [address] IGRE % 0.3 0.0 - 0.4 % [place] Comment: IGRE % count includes Metamyelocytes, Myelocytes, and Promyelocytes. As part of the Differential testing performed at [facility], [address] [place] [address], [place] [address] Neutrophil Abs 5.62 1.70 - 7.30 K/uL [place] Comment:As part of the Diffe rential testing performed at [facility], [address] [place] [address], [place] [address] Lymphocyte Abs 0.71(L) 1.00 - 4.80 K/uL [place] Comment:As part of the Diffe rential testing performed at [facility], [address] [place] [address], [place] [address] Monocyte Abs 0.15 0.08 - 0.70 K/uL [place] Comment:As part of the Diffe rential testing performed at [facility], [address] [place] [address], [place] [address] Eosinophil Abs 0.01(L) 0.04 - 0.40 K/uL [place] Comment:As part of the Diffe rential testing performed at [facility], [address] [place] [address] Basophil Abs 0.01 0.00 - 0.10 K/uL [place] Comment:As part of the Diffe rential testing performed at [facility], [address] [place] [address], [place] [address] IG Abs 0.02 0.00 - 0.04 K/uL [place] Comment:As part of the Diffe rential testing performed at [facility], [address] [place] [address] Blood 04/22/2023 12:2 8 PM CDT 04/22/2023 12:29 PM CDT [facility] - 04/22/2023 12:33 PM CDT Coordinate all on same day. Ok to schedule 1-2 weeks following 04/14 to coordinate appts Winter Luu MD LAB BLOOD ORDERABL ES [address], [facility] [address] [place] [address] * BUN (04/22/2023 12:28 PM CDT) Pathologist [facility] BUN 12 6 - 23 mg/dL [place] Comment:Testing performed at [facility], [address] [place] [address] Blood 04/22/2023 12:2 8 PM CDT 04/22/2023 12:29 PM CDT Narrative [place] - 04/22/2023 1:04 PM CDT Coordinate all on same day. Ok to schedule 1-2 weeks following 04/14 to coordinate appts Winter Luu MD LAB BLOOD ORDERABL ES Performing Organization Address City/[facility]/ZIP Co de Phone Number [place] [phone] [place] [address] * (ABNORMAL) Electrolyte Panel (04/22/2023 12:28 PM CDT) Sodium Lvl 135(L) 136 - 145 mEq/L [place] Comment:Testing performed at [facility], [address] [place] [address] Potassium Lvl 4.7 3.5 - 5.1 mEq/L [place] Comment:Testing performed at [facility], [address] [place] [address] Chloride 96(L) 98 - 107 mEq/L [place] Comment:Testing performed at [facility], [address], [place] [address] CO2 21(L) 22 - 29 mEq/L [place] Comment:Testing performed at [facility], [address], [place] [address] Anion Gap 18(H) 4 - 14 mEq/L [place] Comment:Testing performed at [facility], [facility] [facility], [place] [address] Blood 04/22/2023 12:2 8 PM CDT 04/22/2023 12:29 PM CDT Narrative [place] - 04/22/2023 1:04 PM CDT Coordinate all on same day. Ok to schedule 1-2 weeks following 04/14 to coordinate appts Winter Luu MD LAB BLOOD ORDERABL ES [place] [facility] [address], [facility] [address] [place] [address] after 03/27/2023 Advance Directives * Full Code (Latest Code Status on File) Date Activated Date Inactivated Comments 02/06/2023 1:33 AM 02/16/2023 6:41 PM * Full Code Date Activated Date Inactivated Comments 01/26/2023 5:50 PM 02/01/2023 8:34 PM * Full Code Date Activated Date Inactivated Comments 01/11/2023 10:19 PM 01/18/2023 9:39 PM * Full Code Date Activated Date Inactivated Comments 12/09/2022 10:42 PM 12/15/2022 9:30 PM Care Teams Health Clinician Relationship Specialty Start Date End Date Bina Obando MD [address] [place] [phone] PCP - External Referring Otolaryngology 11/12/22 Kenya Agarwal MD [address] [place] [phone] PCP - General Head and Neck Surgery 11/12/22 Trent Irving MD [address] [place] [address] Family Practice 11/26/22 Randall Sheriff MD [address] [place], [place] [id number] Family [facility] 11/26/22 Vignesh Waddell MD [address] [place] [id number] Pulmonary Medicine 11/26/22 Naa Miller MD [address] [id number] Cardiology 11/26/22 Tapan Harper MD [address] [place] [address] Gastroenterology 11/26/22 Rafael Rosas MD [address] [place] [phone] Ophthalmology 11/26/22 Suzanne Mcgrath MD [address] [place] [phone] Consulting Physician Ophthalmology 12/29/22 Winter Luu MD [address] [place] [phone] Consulting Physician Radiation Oncology 11/26/22 Vaibhav Rosario MD [address] [place] [phone] Consulting Physician Medical Oncology 11/26/22 Rogerio Kramer MD [address] [place] [phone] Consulting Physician Pain Management 01/20/23 Rosana Harkins MD [address] [place] [phone] Consulting Physician Hematology and Oncology 03/31/23 No Andrade MD [address] [place] [phone] Consulting Physician Endocrinology 09/01/23
[2024-03-26] MEDS ORDERED: ALBUTEROL 2.5 MG/3 ML NEB SOL ONE (09:12)
[2024-03-26] MEDS ORDERED: METHYLPREDNISOLONE 125 MG INJ ONE (09:12)
[2024-03-26] MEDS ORDERED: IPRATROPIUM BROM 0.5MG/2.5ML ONE (09:12)
[2024-03-26 09:35] LABS: Absolute Basophils 0.1 K/uL (0-0.5); Absolute Eosinophils 0.3 K/uL (0-0.5); Absolute Lymphocytes (CBC) 1.6 K/uL (0.7-4.9); Absolute Monocytes 0.6 K/uL (0.1-1.3); Absolute Neutrophil 4.6 K/uL (1.8-8.0); Basophils % 1.3 % (0-1.3); Eosinophils % 4.4 % (0-4.4); Hematocrit 43.8 % (36.0-45.0); Hemoglobin 14.5 g/dL (12.0-15.0); Lymphocytes % 22.6 % (15.3-44.8); MCH 30.7 pg (27.0-35.0); MCHC 33.1 g/dL (32.0-36.0); MCV 92.9 fL (80-100); MPV 8.6 fL (7.6-11.3); Neutrophils % 63.7 % (41.7-73.7); Nucleated Red Blood Cells % 0.1 % (0-0); Platelets 219 thou/uL (152-406); RBC Red Blood Cell Count 4.71 M/uL (3.86-4.86); Red Cell Distribution Width 13.4 % (12.1-15.2)
[2024-03-26 09:55] LABS: ALT/SGPT 33 U/L (13-56); AST/SGOT 15 U/L (15-37); Albumin 3.5 g/dL (3.4-5.0); Albumin/Globulin Ratio 0.9 (1.1-1.8); Alkaline Phosphatase 152 U/L (45-117); Anion Gap 9.7 mEq/L (5.0-15.0); BUN Blood Urea Nitrogen 13 mg/dL (7-18); Bicarbonate 26 mEq/L (21-32); Bilirubin Total 0.4 mg/dL (0.2-1.0); Globulin 3.9 g/dL (2.3-3.5); Glomerular Filtration Rate 93 ml/min (=/>90); Glucose Level 153 mg/dL (74-106); Magnesium 1.8 mg/dL (1.6-2.4); NT PRO-BNP 79 pg/mL (<125); Potassium 3.7 mEq/L (3.5-5.1); Protein, Total 7.4 g/dL (6.4-8.2); Sodium Level 138 mEq/L (136-145); Troponin High Sensitivity 3.8 pg/mL (<58.9)
[2024-03-26 09:57] LABS: Bilirubin Direct < 0.2 mg/dL (0-0.2); Bilirubin Indirect, Calculated 0.2 mg/dL (0.2-0.8)
--- NOTE | 2024-03-26 10:16 | RAD REPORT ---
EXAM DESCRIPTION: RAD - Chest Single View - 03/26/2024 10:09 am CLINICAL HISTORY: DYSPNEA COMPARISON: Chest Single View dated 10/14/2023; Abdomen Acute Series dated 09/26/2023; Abdomen 1 Vie w (KUB) dated 09/03/2023; Chest Single View dated 07/01/2023 FINDINGS: Lines: None. Lungs: Mild opacities at the left lung base. Pleural: No significant pleural effusions or pneumothorax. Cardiac: The heart size is within normal limits. Mediastinum: Within normal limits. Bones: No acute fractures. Other: None IMPRESSION: Mild left basilar opacities could reflect atelectasis and/or pneumonia.
--- NOTE | 2024-03-26 11:33 | EDPHYS ---
Physician Documentation [facility] Name: Maria De Jesus Acosta Age: 59 yrs Sex: Female : 1965 Arrival Date: 03/26/2024 Time: 08:46 Bed 20 Private MD: ED Physician Duncan Delaney HPI: 03/26 09:39 This 59 yrs old Female presents to ER via Ambulatory with complaints of rt Breathing Difficulty. 09:39 Patient with history of COPD presents to the ED with cough, congestion, difficulty rt breathing, chest tightness for 2 days. Worsened today. Patient was doing breathing treatments at home to no relief. Denies other acute complaints, symptoms are moderate in severity, no other aggravating or alleviating factors.. Historical: - Allergies: 09:05 Doxycycline; hb 09:05 metoclopramide HCl; hb 09:05 kiwi; hb 09:05 orange juice; hb 09:05 Reglan; hb - PMHx: 09:05 Asthma; CHF; COPD; Crohn's; Diabetes - NIDDM; Hypertension; Nasal cancer; hb - PSHx: 09:05 Appendectomy; Cholecystectomy; Gastric Bypass; Ligation of fallopian tube; partial hb hysterectomy; Shoulder; - Immunization history:: Adult Immunizations up to date. - Infectious Disease History:: Denies. - Social history:: Smoking status: Patient denies any tobacco usage or history of. - Family history:: not pertinent. ROS: 09:39 Constitutional: Negative for fever, chills, and weight loss, Abdomen/GI: Negative for rt abdominal pain, nausea, vomiting, diarrhea, and constipation, MS/Extremity: Negative for injury and deformity, Skin: Negative for injury, rash, and discoloration, Neuro: Negative for headache, weakness, numbness, tingling, and seizure, Psych: Negative for depression, anxiety, suicide ideation, homicidal ideation, and hallucinations, 09:39 Cardiovascular: Positive for chest pain, Negative for edema, 09:39 Respiratory: Positive for cough, shortness of breath, wheezing, Exam: 09:39 Constitutional: This is a well developed, well nourished patient who is awake, alert, rt and in no acute distress. Head/Face: Normocephalic, atraumatic. Chest/axilla: Normal chest wall appearance and motion. Nontender with no deformity. No lesions are appreciated. Cardiovascular: Regular rate and rhythm with a normal S1 and S2. No gallops, murmurs, or rubs. Normal PMI, no JVD. No pulse deficits. Abdomen/GI: Soft, non-tender, with normal bowel sounds. No distension or tympany. No guarding or rebound. No evidence of tenderness throughout. Skin: Warm, dry with normal turgor. Normal color with no rashes, no lesions, and no evidence of cellulitis. MS/ Extremity: Pulses equal, no cyanosis. Neurovascular intact. Full, normal range of motion. Neuro: Awake and alert, GCS 15, oriented to person, place, time, and situation. Cranial nerves II-XII grossly intact. Motor strength 5/5 in all extremities. Sensory grossly intact. Cerebellar exam normal. Normal gait. 09:39 ECG was reviewed by the Attending Physician. 09:39 Respiratory: Wheezes, diminished breath sounds over all lung platt, mild respiratory distress, Vital Signs: 09:02 BP 143 / 80; Pulse 65; Resp 24; Temp 98.5(O); Pulse Ox 89% on R/A; Weight 114.31 kg; hb Height 5 ft. 2 in. ; Pain 3/10; 10:09 BP 122 / 63; Pulse 67; Resp 15; Pulse Ox 93% on 2 lpm NC; bp 11:16 BP 136 / 64; Pulse 64; Resp 17; Pulse Ox 92% ; bp 09:02 Body Mass Index 46.09 (114.31 kg, 157.48 cm) hb 09:02 Pain Scale: Adult hb MDM: 09:03 Patient medically screened. rt 14:19 Differential diagnosis: Chronic Obstructive Pulmonary Disease pneumonia, pulmonary rt edema. Antibiotic administration: The patient is discharged and will get outpatient antibiotics. Data reviewed: vital signs, nurses notes, lab test result(s), EKG, radiologic studies. Consideration of Admission/Observation Escalation of care including admission/observation considered. Patient with stable vital signs, no SIRS criteria, symptoms are improving treatment in the ED. She is comfortable discharge, will treat pneumonia as an outpatient. Return precautions were discussed.. I considered the following discharge prescriptions or medication management in the emergency department Medications were administered in the Emergency Department. See MAR. Independent interpretation of the following test(s) in the Emergency Department X-Ray: My interpretation is No pneumothorax seen on my interpretation of x-ray images. Test considered but Not performed: CT: Low suspicion for PE, CT angiogram not indicated. Care significantly affected by the following chronic conditions: Chronic Obstructive Pulmonary Disease. Counseling: I had a detailed discussion with the patient and/or guardian regarding the historical points, exam findings, and any diagnostic results supporting the discharge/admit diagnosis, lab results, radiology results, the need for outpatient follow up, to return to the emergency department if symptoms worsen or persist or if there are any questions or concerns that arise at home. 03/26 09:08 Order name: Basic Metabolic Panel; Complete Time: rt 03/26 09:08 Order name: CBC with Diff; Complete Time: rt 03/26 09:08 Order name: LFT's; Complete Time: rt 03/26 09:08 Order name: Magnesium; Complete Time: rt 03/26 09:08 Order name: NT PRO-BNP; Complete Time: rt 03/26 09:08 Order name: Troponin HS; Complete Time: rt 03/26 09:08 Order name: XRAY Chest (1 view); Complete Time: 10: rt 03/26 09:08 Order name: EKG; Complete Time: : rt 03/26 09:08 Order name: Cardiac monitoring; Complete Time: : rt 03/26 09:08 Order name: EKG - Nurse/Tech; Complete Time: : rt 03/26 09:08 Order name: IV Saline Lock; Complete Time: : rt 03/26 09:08 Order name: Labs collected and sent; Complete Time: : rt 03/26 09:08 Order name: O2 Per Protocol; Complete Time: : rt 03/26 09:08 Order name: O2 Sat Monitoring; Complete Time: 09:10 rt EC:39 Rate is 60 beats/min. Rhythm is regular, Normal Sinus Rhythm with No ectopy. QRS [place] rt is Normal. SD interval is normal. QRS interval is normal. QT interval is normal. No Q waves. T waves are Normal. No ST changes noted. Interpreted by me. Administered Medications: : Drug: MethylPrednisoLONE IVP 125 mg IVP once Route: IVP; Site: right forearm; bp 12:10 Follow up: Response: No adverse reaction bp 09:21 Drug: DuoNeb Nebulize (3:1) (2.5 mg - 0.5 mg) 3 ml Nebulizer once Route: Nebulizer; bp 12:10 Follow up: Response: No adverse reaction bp 11:45 Drug: AZITHromycin PO 500 mg PO once Route: PO; bp 12:10 Follow up: Response: No adverse reaction bp Disposition Summary: 03/26/24 11:33 Discharge Ordered Notes: Location: Home rt Problem: new rt Symptoms: have improved rt Condition: Stable rt Diagnosis - COPD/ Chronic obstructive pulmonary disease, unspecified rt - Pneumothorax, unspecified rt Followup: rt - With: Private Physician - When: 2 - 3 days - Reason: Discharge Instructions: - Discharge Summary Sheet rt - Chronic Obstructive Pulmonary Disease rt - Community-Acquired Pneumonia, Adult rt Forms: - Medication Reconciliation Form rt - Antibiotic Education rt - Prescription Opioid Use rt - Patient Portal Instructions rt - Leadership Thank You Letter rt Prescriptions: - azithromycin 250 mg Oral tablet - take 1 tablet ORAL route daily for 4 days; 4 tablet; Refills: 0, Product rt Selection Permitted - Prednisone 20 mg Oral Tablet - take 2 tablets ORAL route once daily for 5 days; 10 tablet; Refills: 0, Product rt Selection Permitted Signatures: Dispatcher [employer] EDMS Azul Ta RN RN hb Roberto Carlos Parson RN RN bp Duncan Delaney MD MD rt Corrections: (The following items were deleted from the chart) 09:08 09:08 BASIC METABOLIC PANEL+C.LAB.BRZ ordered. EDMS EDMS 09:08 09:08 CBC+H.LAB.BRZ ordered. EDMS EDMS 09:08 09:08 HEPATIC FUNCTION+C.LAB.BRZ ordered. EDMS EDMS 09:08 09:08 MAGNESIUM+C.LAB.BRZ ordered. EDMS EDMS 09:08 09:08 PROBNP+C.LAB.BRZ ordered. EDMS EDMS 09:08 09:08 Troponin High Sensitivity+C.LAB.BRZ ordered. EDMS EDMS
--- NOTE | 2024-03-26 11:33 | ER ---
Nurse's Notes [facility] Name: Maria De Jesus Acosta Age: 59 yrs Sex: Female : 1965 Arrival Date: 03/26/2024 Time: 08:46 Bed 20 Private MD: Diagnosis: COPD/ Chronic obstructive pulmonary disease, unspecified;Pneumothorax, unspecified Presentation: 03/26 09:02 Chief complaint: Cough and SOB x 2 days, unrelieved by home nebs. Coronavirus screen: hb Client presents with at least one sign or symptom that may indicate coronavirus-19. Provider contacted for isolation considerations. Ebola Screen: No symptoms or risks identified at this time. Initial Sepsis Screen: Does the patient meet any 2 criteria? RR > 20 per min. No. Patient's initial sepsis screen is negative. Does the patient have a suspected source of infection? No. Patient's initial sepsis screen is negative. Risk Assessment: Do you want to hurt yourself or someone else? Patient reports no desire to harm self or others. Onset of symptoms was March 25, 2024. 09:02 Method Of Arrival: Ambulatory 09:02 Acuity: EMERALD 2 Triage Assessment: 09:05 General: Appears distressed, obese, Behavior is calm, cooperative, appropriate for age. bp Respiratory: Reports shortness of breath cough that is Onset: The symptoms/episode began/occurred yesterday, the patient has mild shortness of breath. Historical: - Allergies: 09:05 Doxycycline; hb 09:05 metoclopramide HCl; hb 09:05 kiwi; hb 09:05 orange juice; hb 09:05 Reglan; hb - PMHx: 09:05 Asthma; CHF; COPD; Crohn's; Diabetes - NIDDM; Hypertension; Nasal cancer; hb - PSHx: 09:05 Appendectomy; Cholecystectomy; Gastric Bypass; Ligation of fallopian tube; partial hb hysterectomy; Shoulder; - Immunization history:: Adult Immunizations up to date. - Infectious Disease History:: Denies. - Social history:: Smoking status: Patient denies any tobacco usage or history of. - Family history:: not pertinent. Screenin:03 [facility] ED Fall Risk Assessment (Adult) History of falling in the last 3 months, bp including since admission No falls in past 3 months (0 pts). Abuse screen: Denies threats or abuse. Denies injuries from another. Nutritional screening: No deficits noted. Tuberculosis screening: No symptoms or risk factors identified. Assessment: 09:02 General: Appears distressed, obese, Behavior is calm, cooperative, appropriate for age. bp Pain: Denies pain. Neuro: No deficits noted. Cardiovascular: Rhythm is sinus rhythm. Respiratory: Airway is patent Respiratory effort is labored, Breath sounds with wheezes bilaterally. GI: No signs and/or symptoms were reported involving the gastrointestinal system. : No signs and/or symptoms were reported regarding the genitourinary system. EENT: No deficits noted. Derm: No deficits noted. Musculoskeletal: No deficits noted. 10:09 Reassessment: Patient is alert, oriented x 3, equal unlabored respirations, skin bp warm/dry/pink. Patient states symptoms have improved. Vital Signs: 09:02 BP 143 / 80; Pulse 65; Resp 24; Temp 98.5(O); Pulse Ox 89% on R/A; Weight 114.31 kg; hb Height 5 ft. 2 in. ; Pain 3/10; 10:09 BP 122 / 63; Pulse 67; Resp 15; Pulse Ox 93% on 2 lpm NC; bp 11:16 BP 136 / 64; Pulse 64; Resp 17; Pulse Ox 92% ; bp 09:02 Body Mass Index 46.09 (114.31 kg, 157.48 cm) hb 09:02 Pain Scale: Adult hb ED Course: 08:49 Patient arrived in ED. mg5 08:57 Duncan Delaney MD is Attending Physician. rt 09:00 Roberto Carlos Parson, RN is Primary Nurse. bp 09:02 Client placed on continuous cardiac and pulse oximetry monitoring. NIBP monitoring hb applied. senior java ui developer on. Pulse ox on. NIBP on. 09:03 Patient has correct armband on for positive identification. Placed in gown. Bed in low bp position. 09:03 Oxygen administration via nasal cannula \T\ 3L/min. bp 09:04 Triage completed. hb 09:21 Initial lab(s) drawn, by me, sent to lab. EKG done, by ED staff, reviewed by Duncan Delaney MD. Inserted saline lock: 22 gauge in right forearm, using aseptic technique. Blood collected. 10:10 XRAY Chest (1 view) In Process Unspecified. EDMS 12:09 No provider procedures requiring assistance completed. IV discontinued, intact, bp bleeding controlled, No redness/swelling at site. Pressure dressing applied. 12:10 Provided Education on: N/A. bp 12:10 Patient N/A. bp Administered Medications: 09:21 Drug: MethylPrednisoLONE IVP 125 mg IVP once Route: IVP; Site: right forearm; bp 12:10 Follow up: Response: No adverse reaction bp 09:21 Drug: DuoNeb Nebulize (3:1) (2.5 mg - 0.5 mg) 3 ml Nebulizer once Route: Nebulizer; bp 12:10 Follow up: Response: No adverse reaction bp 11:45 Drug: AZITHromycin PO 500 mg PO once Route: PO; bp 12:10 Follow up: Response: No adverse reaction bp Outcome: 11:33 Discharge ordered by . rt 12:09 Discharged to home ambulatory, with family, bp 12:09 Condition: stable 12:09 Discharge instructions given to patient, Instructed on discharge instructions, follow up and referral plans. medication usage, Demonstrated understanding of instructions, follow-up care, medications, Prescriptions given X 2, 12:11 Patient left the ED. bp Signatures: Dispatcher [employer] EDMS Azul Ta RN RN hb Roberto Carlos Parson RN RN bp Duncan Delaney MD MD rt Vangie Tobin mg5
[2024-03-26] MEDS ORDERED: AZITHROMYCIN 250 MG TAB ONE (11:41)
[2024-03-26 12:25] VITALS: BP 136/64; TEMP 98.5; O2SAT 92
--- NOTE | 2024-03-28 14:19 | EKG ---
Test Date: 2024-03-26 Test Time: 09:19:26 Cleaner: OSKAR MEASUREMENT RESULTS: Intervals: Rate: 60 VA: 162 QRSD: 76 QT: 434 QTc: 434 [place]: P: 50 VA: 162 QRS: 35 T: 53 INTERPRETIVE STATEMENTS: Normal sinus rhythm Normal ECG Compared to ECG 10/14/2023 15:00:55 Myocardial infarct finding no longer present Electronically Signed On 03-28-24 14:13:48 CDT by Alhaji Loya
== END 2024-03-26 12:11 | disposition home or self-care (01) ==
LOC: ER 08:46
DX: J93.9 Pneumothorax, unspecified (principal); J44.9 Chronic obstructive pulmonary disease, unspecified; I10 Essential (primary) hypertension; I50.9 Heart failure, unspecified; Z88.1 Allergy status to other antibiotic agents; Z88.8 Allergy status to other drugs, medicaments and biological substances; Z91.018 Allergy to other foods
CPT/HCPCS: 36415; 71045; 80048; 80076; 83735; 83880; 84484; 85025; 93005; 94640; 96374; 99285; J2919; J7613; J7644

== ENCOUNTER 2024-06-13 08:02 | Day surgery (SDC) | payer OTHER ==
[2024-06-09 10:57] LABS: Absolute Basophils 0.1 K/uL (0-0.5); Absolute Eosinophils 0.2 K/uL (0-0.5); Absolute Lymphocytes (CBC) 1.3 K/uL (0.7-4.9); Absolute Monocytes 0.7 K/uL (0.1-1.3); Absolute Neutrophil 5.8 K/uL (1.8-8.0); Basophils % 0.8 % (0-1.3); Eosinophils % 2.2 % (0-4.4); Hematocrit 46.8 % (36.0-45.0); Hemoglobin 15.1 g/dL (12.0-15.0); Lymphocytes % 16.4 % (15.3-44.8); MCH 30.2 pg (27.0-35.0); MCHC 32.3 g/dL (32.0-36.0); MCV 93.4 fL (80-100); MPV 8.9 fL (7.6-11.3); Neutrophils % 71.6 % (41.7-73.7); Platelets 200 thou/uL (152-406); RBC Red Blood Cell Count 5.01 M/uL (3.86-4.86); Red Cell Distribution Width 13.5 % (12.1-15.2)
[2024-06-09 11:20] LABS: Anion Gap 11.1 mEq/L (5.0-15.0); Potassium 4.1 mEq/L (3.5-5.1)
[2024-06-13] MEDS ORDERED: NA CHLORIDE 0.9% 1,000 ML ONE (08:21)
[2024-06-13] MEDS ORDERED: propofoL 200 MG/20 ML VIAL IV ONE ×2 (09:37→09:38)
[2024-06-13] MEDS ORDERED: LIDOCAINE 1% MPF 5 ML VIAL ONE (09:38)
[2024-06-13 11:08] VITALS: O2SAT 93
[2024-06-13 11:09] VITALS: BP 119/80; TEMP 97.6
== END 2024-06-13 10:41 | disposition home or self-care (01) ==
LOC: OR 08:02
PROVIDERS: ATTEND Internal Medicine Gastroenterology
PROC: 0DB68ZX Excision of Stomach, Via Natural or Artificial Opening Endoscopic, Diagnostic (ICD-10-PCS; principal; 2024-06-13 09:00)
DX: K22.4 Dyskinesia of esophagus (principal); K29.70 Gastritis, unspecified, without bleeding; R10.13 Epigastric pain; K31.84 Gastroparesis; K21.9 Gastro-esophageal reflux disease without esophagitis; R11.2 Nausea with vomiting, unspecified; K31.89 Other diseases of stomach and duodenum; Z98.84 Bariatric surgery status
CPT/HCPCS: 43239; 85025; 80048; 36415; 88312; 82947; 88305; J2704; J2001; J7030

== ENCOUNTER 2024-10-04 13:07 | Emergency (ER) | payer OTHER ==
--- OUTSIDE RECORDS SUMMARY | 2024-10-04 13:12 | XMS REPORT | Clinical Summary ---
Author Name Unknown Organization [facility] [place] Address [address] [place] [address] Care Team Providers Care Stave Planer Tender Name Role Phone Bina Obando MD Unavailable [phone] Kenya Agarwal MD Primary Care Provider [phone] Trent Irving MD Unavailable [phone] Randall Sheriff MD Unavailable [phone] Vignesh Waddell MD Unavailable [phone] Naa Miller MD Unavailable [phone] [facility] Un[facility] [phone] Rafael Rosas MD Unavailable [phone] Suzanne Mcgrath MD Unavailable [phone] Winter Luu MD Unavailable [phone] Vaibhav Rosario MD Unavailable [phone] Rogerio Kramer MD Unavailable [phone] Rosana Harkins MD Unavailable No Andrade MD [...] procedure Metoclopramide Hcl Other (See Comments) 10/16/2022 [place] [facility]ice Nausea And Vomiting,GI Intolerance Low 04/18/2021 Medications * This document contains information received from the source organization and may not represent a complete record from that organization. albuterol (VENTOLIN HFA,PROAIR HFA) 90 mcg/puff inhaler every 6 (six) hours as needed. Active ALPRAZolam (XANAX) 2 mg tablet every 8 (eight) hours as needed for anxiety. Active amLODIPine (NORVASC) 5 mg tablet TAKE 1 TABLET BY MOUTH EVERY DAY Active atorvastatin (LIPITOR) 20 mg tablet TAKE 1 TABLET BY MOUTH EVERY DAY Active Trelegy Ellipta 100-62.5-25 mcg dsdv INHALE 1 PUFF BY MOUTH EVERY DAY Active mesalamine (APRISO) 0.375 gram 24 hr capsule TAKE 4 CAPSULES BY MOUTH DAILY Active pantoprazole (PROTONIX) 40 mg EC tablet TAKE 1 TABLET BY MOUTH DAILY Active Motegrity 2 mg tab TAKE 1 TABLET BY MOUTH DAILY Active zolpidem (AMBIEN) 10 mg tablet TAKE 1 TABLET BY MOUTH AT BEDTIME NEEDED FOR INSOMNIA Active prochlorperazine (Compazine) 10 mg tabletIndication s:Adenoid cystic carcinoma of nasopharynx, NOS Take 1 tablet (10 mg) by mouth every 6 (six) hours as needed for nausea or vomiting (if not controlled by Ondansetron). 60 tablet 3 023 Active lisinopril (PRINIVIL,ZESTRI L) 40 mg tablet Take 1 tablet (40 mg) by mouth every morning. Active naloxone (Narcan) 4 mg/actuation nasal sprayIndications :assisted current use of opiate analgesic 1 dose into one nostril as needed for opioid overdose. another dose into the other nostril after 2 minutes if the patient does not respond 2 each 023 Active Additional Information Patient not taking.Reason: No longer taking, Reported on 02/08/2024 pen needle, diabetic (Easy Comfort Pen Fletcher) 31 gauge x 5/16" ndleIndications: Type 2 diabetes mellitus with hyperglycemia Use to inject insulin 4 times a day 100 each 1 023 Active lidocaine (XYLOCAINE) 20 mg/mL (2%) viscous solutionIndicati ons:Adenocarcino ma of nasopharynx Swish and swallow 5 mL every 6 (six) hours as needed (painful swallowing). 100 mL 3 023 Active Additional Information Patient not taking.Reason: No longer taking, Reported on 02/08/2024 fluticasone propionate (FLONASE) 50 mcg/spray nasal sprayIndications :Adenoid cystic carcinoma of nasopharynx, NOS Inhale 2 sprays (100 mcg) into each nostril twice daily. 11.1 mL 3 023 Active allopurinol (ZYLOPRIM) 300 mg tabletIndication s:prevention of acute gout attack Take 1 tablet (300 mg) by mouth twice daily. Active colchicine (COLCRYS) 0.6 mg tabletIndication s:prevention of acute gout attack Take 1 tablet (0.6 mg) by mouth daily. Active dicyclomine (BENTYL) 10 mg capsule Take 1 capsule (10 mg) by mouth 3 (three) times a day. Active insulin regular hum U-500 conc (HumuLIN R U-500, Conc, Kwikpen) 500 unit/mL (3 mL) insulin penIndications:T ype 2 diabetes mellitus without complication Inject 70-180 Units under the skin daily with breakfast AND 40-105 Units daily before lunch AND 35-95 Units daily before dinner. 30 mL 11 023 Active Additional Information Patient taking differently: Inject 14-190 Units under the skin daily with breakfast AND 100-145 Units daily before lunch AND 60-95 Units daily before dinner., Reason: Other, Informant: Self, Reported on 07/28/2023 pseudoephedrine (Sudafed) 30 mg tabletIndication s:Chronic pain Take 1 tablet (30 mg) by mouth every 8 (eight) hours as needed for congestion. 60 tablet 023 Active Additional Information Patient not taking.Reason: No longer taking, Informant: Self, Reported on 12/30/2023 oxyCODONE-acetam inophen (Percocet) 5 mg-325 mg per tabletIndication s:Cancer associated pain Take 1 tablet by mouth 2 (two) times a day as needed for severe pain. 60 tablet 023 Active Additional Information Patient not taking.Reason: No longer taking, Informant: Self, Reported on 12/30/2023 gabapentin (NEURONTIN) 800 mg tabletIndication s:Chronic pain TAKE 1 TABLET(800 MG) BY MOUTH EVERY 8 HOURS 90 tablet 023 Active promethazine-dex tromethorphan (PROMETHAZINE-DM ) 6.25-15 mg/5 mL syrup TAKE 5 ML BY MOUTH EVERY 6 HOURS NEEDED FOR COUGH 023 Active benzonatate (TESSALON) 100 mg capsule Take 1 capsule (100 mg) by mouth as needed. 023 Active spironolactone (ALDACTONE) 25 mg tablet TAKE 1 TABLET BY MOUTH EVERY DAY 023 Active metoprolol succinate (TOPROL XL) 100 mg 24 hr tablet TAKE 1 TABLET BY MOUTH TWICE DAILY 023 Active blood-glucose sensor (FreeStyle Young 3 Sensor) kitIndications:T ype 2 diabetes mellitus without complication Use to check glucose continuously every 14 days 3 each 3 023 Active tirzepatide (Mounjaro) 5 mg/0.5 mL pnijIndications: Type 2 diabetes mellitus without complication Inject 5 mg under the skin every 7 days. After about 3 doses, notify potato peeler if you are feeling well and we can increase the dose. 2 mL 1 023 Active Additional Information Patient not taking.Reason: No longer taking, Reported on 02/08/2024 lactulose (CHRONULAC) 10 gram/15 mL solution Take 30 mL (20 g) by mouth as needed. 023 Active HYDROcodone-acet aminophen (NORCO) 10 mg-325 mg per tablet Take 1 tablet by mouth every 8 (eight) hours as needed for moderate pain. 016 Active cloNIDine HCl (CATAPRES) 0.1 mg tablet 024 Active nitroglycerin (NITROSTAT) 0.4 mg SL tablet Transfusion VS 024 Active DULoxetine (CYMBALTA) 60 mg capsuleIndicatio ns:Neuropathy due to diabetes mellitus TAKE 1 CAPSULE BY MOUTH EVERY DAY 90 capsule 024 Active ondansetron (ZOFRAN) 8 mg tabletIndication s:Adenoid cystic carcinoma of nasopharynx, NOS Take 1 tablet (8 mg) by mouth every 8 (eight) hours as needed for nausea or vomiting. 30 tablet 3 023 2023 DULoxetine (Cymbalta) 60 mg capsuleIndicatio ns:Neuropathy due to diabetes mellitus Take 1 capsule (60 mg) by mouth daily. 90 capsule 3 023 2023 Discontinued Active Problems Problem Noted Date Diagnosed Date assisted use of anticoagulant 03/31/2023 Acute thrombosis of [...] Other hyperlipidemia 07/28/2018 Severe protein-calorie malnutrition Encounters * This document contains information received from the source organization and may not represent a complete record from that organization. Date Type Department Care Team Description 09/20/2024 Refill Endocrine [facility] [address] [facility], [address]th [place] [address] No Andrade MD Neuropathy due to diabetes mellitus 09/19/2024 Orders Only MD [facility] [place] - Thoracic Medicine [address] [place] [address] Vaibhav Rosario MD 08/22/2024 Orders Only Neuroradiology [address] [place] [address] Dayday Villavicencio MD 08/16/2024 3:30 PM CDT Nutrition Clinical Nutrition For your Nutrition appointment location directions please call: Kenya Agarwal MD Martin, Cathy A, ADAM 08/16/2024 Documentation Rehabilitation Services [address] [facility], 1st Floor [id number] [place] [address] Skye Reed, PT 08/15/2024 8:45 AM CDT Follow-Up MD [facility] [place] - Head & Neck Surgery [address] [place] [id number] Kenya Agarwal MD Adenoid cystic carcinoma of nasopharynx, NOS (Primary Dx) 08/15/2024 Travel 02/08/2024 8:45 AM CDT Follow-Up MD [facility] [place] - Head & Neck Surgery [address] [place] [address] Kenya Agarwal MD Adenoid cystic carcinoma of nasopharynx, NOS (Primary Dx) 02/08/2024 Travel 12/23/2023 Orders Only MD [facility] [place] - Head & Neck Surgery [address] [place] [address] Red Berman, LICENSED SURVEYOR Adenoid cystic carcinoma of nasopharynx, NOS (Primary Dx) 12/10/2023 10:45 AM CHIEF PROGRAM OFFICER Ancillary Procedure [address] [place] [address] Red Berman, LICENSED SURVEYOR Adenoid cystic carcinoma of nasopharynx, NOS 12/10/2023 Travel 11/30/2023 Travel 11/23/2023 Orders Only MD [facility] [place] - Head & Neck Surgery [address] [place] [address] Red Berman, LICENSED SURVEYOR Adenoid cystic carcinoma of nasopharynx, NOS (Primary Dx) 11/23/2023 Telephone [facility] - Head & Neck Surgery [address] [place] [id number] Allyssa Silva RN 11/18/2023 Orders Only [facility] - [facility] Ne[facility] [address] [place] [id number] Red Berman, LICENSED SURVEYOR Adenoid cystic carcinoma of nasopharynx, NOS (Primary Dx) 11/18/2023 Documentation Endocrine [facility] [address] [place] [address] Main dg, 6th [place] [address] Brigitte Carver RN 11/16/2023 Telephone [facility]ocrine [facility] [address] [place] [address] Main dg, 6th [place] [address] Brigitte Carver, RN Follow-up 11/03/2023 Telephone Endocrine Center [address] [place] [address] Main [facility], 6th [place] [address] Brigitte Carver, RN Appointment ([facility] Outpatient Endocrine ) 10/18/2023 9:00 AM CHIEF PROGRAM OFFICER Procedure visit Endocrine Center [address] [place] [address] Main Bldg, 6th [place] [address] Eliseo Crum MD Type 2 diabetes mellitus with hyperglycemia (Primary Dx) 10/18/2023 Telephone [facility]ocrine Center [address] [place] [address] Main dg, 6th [place] [address] Brigtite Carver RN Follow-up 10/11/2023 Telephone Endocrine Center [address] [place] [address] Main [facility], 6th [place] [address] No Andrade MD 10/08/2023 Orders Only [facility] - Surgical Oncology [address] [place] [address], 10th Floor, [place] [address] Red Berman, LICENSED SURVEYOR Adenoid cystic carcinoma of nasopharynx, NOS (Primary Dx) after 10/05/2023 Surgical History Surgery Date Site/Laterality Comments APPENDECTOMY [id number] COLONOSCOPY [id number] CHOLECYSTECTOMY [id number] KNEE ARTHROPLASTY Right SHOULDER SURGERY 050@2010 Left UPPER GASTROINTESTINAL ENDOSCOPY [id number] SECTION, CLASSIC 11/01/1984 - 10/31/1985 PARTIAL HYSTERECTOMY 03/01/2012 - 03/31/2012 MYRINGOTOMY WITH ASPIRATION AND INSERTION PE TUBES 11/01/2019 - 10/31/2020 SLEEVE GASTROPLASTY N/A Medical History Medical History Date Comments Hypertension [id number] Hyperlipidemia [id number] Allergic rhinitis [id number] Fatty liver 13500149 Gastric reflux [id number] Gastric ulcer [id number] Crohn's disease 15843994 Gout 84583832 Type 2 diabetes mellitus wit h hyperglycemia 5883298 Anxiety 39490204 Chronic obstructive pulmonary disease On home supplemental [...] drink = 0.6 oz pur e alcohol) Comments No Sex and Gender Information Value Date Recorded Sex Assigned at Female 11/12/2022 2:07 PM CHIEF PROGRAM OFFICER Legal Sex Female 11:09 AM CHIEF PROGRAM OFFICER Gender Identity Female 11/12/2022 2:07 PM CHIEF PROGRAM OFFICER Sexual Orientation Not on file Obstetrics History Last Filed Vital Signs Vital Sign Reading Time Taken Comments Blood Pressure 107/70 08/15/2024 9:03 AM CDT Pulse 69 08/15/2024 9:03 AM CDT Temperature 36.9 C (98.4 F) 08/15/2024 9:03 AM CD T Respiratory Rate 18 08/15/2024 9:03 AM CDT Oxygen Saturation 98% 08/15/2024 9:03 AM CDT Inhaled Oxygen Concentration - - Weight 116.8 kg (257 lb 8 oz) 08/15/2024 9:19 AM CDT Height - - Body Mass Index 48.62 09/13/2023 10:01 AM CHIEF PROGRAM OFFICER Plan of Treatment Upcoming Encounters Date Type Department Care Team (Late st Contact Info) Description 02/20/2025 8:15 AM CDT Lab MD [facility] [place] [facility] [address] [place] [address] Kenya Agarwal MD [address] [place] [phone] [email or web address] 02/20/2025 9:05 AM CDT Ancillary Procedure MD [facility] Jim[facility] [address] [place] [address] Kenya Agarwal MD [address] [place] [phone] [email or web address] 02/20/2025 11:15 AM CDT Ancillary Procedure MD [facility] [address] [address] Kenya Agarwal MD [address] [place] [address] [email or web address] 02/20/2025 2:00 PM CDT Follow-Up MD [place] - Radiation Oncology [address] [address] Winter Luu MD [address] [place] [address] [email or web address] Health Maintenance Due Date Last Done Comments Pneumococcal Vaccine: Pediat rics (0 to 5 Years) and At-Risk Patients (6 to 64 Years) (1 of 2 - PCV) 1971 COVID-19 Vaccine (2023-2 5 season) 2024 07/11/2021, 01/01/2021, 12/03/2020 Influenza Vaccine (#1) 2024 , 11/13/2020, 09/29/2013, Additional history exists Medical Devices Implanted Type Area Training Lead Device Identifier Shelf Expiration Date Model / Serial / Lot Gastric Sleeve Sleeve Midline: Stomach Procedures Procedure Name Priority Date/Time Associated Diagnosis Comments PROLACTIN Routine 08/15/2024 10:19 AM CDT Adenoid cystic carcinoma of nasopharynx, NOS INSULIN-LIKE GROWTH FACTOR 1 Routine 08/15/2024 10:19 AM CDT Adenoid cystic carcinoma of nasopharynx, NOS TRIIODOTHYRONINE Routine 08/15/2024 10:1 9 AM CDT Adenoid cystic carcinoma of nasopharynx, NOS FREE THYROXINE Routine 08/15/2024 10:19 AM CDT Adenoid cystic carcinoma of nasopharynx, NOS THYROID STIMULATING HORMONE Routine 08/15/2024 10:19 AM CDT Adenoid cystic carcinoma of nasopharynx, NOS LUTEINIZING HORMONE Routine 08/15/2024 1 0:19 AM CDT Adenoid cystic carcinoma of nasopharynx, NOS FOLLICLE STIMULATING HORMONE LEVEL Routine 08/15/2024 10:19 AM CDT Adenoid cystic carcinoma of nasopharynx, NOS TESTOSTERONE LEVEL Routine 08/15/2024 10 :19 AM CDT Adenoid cystic carcinoma of nasopharynx, NOS ESTRADIOL LEVEL Routine 08/15/2024 10:19 AM CDT Adenoid cystic carcinoma of nasopharynx, NOS ADRENOCORTICOTROPIC HORMONE Routine 08/15/2024 10:19 AM CDT Adenoid cystic carcinoma of nasopharynx, NOS CORTISOL, TOTAL Routine 08/15/2024 10:19 AM CDT Adenoid cystic carcinoma of nasopharynx, NOS .CBC Routine 02/08/2024 12:38 PM CDT Adenoid [...] GLUCOSE SCREEN Routine 12/10/2023 12 :53 PM CHIEF PROGRAM OFFICER MRI ORBITS W WO CONTRAST Routine 024 12:53 PM CHIEF PROGRAM OFFICER Adenoid cystic carcinoma of nasopharynx, NOS after 10/05/2023 Results * Insulin-Like Growth Factor I (08/15/2024 10:19 AM CDT) Only the most recent of2 resultswithin the time period is included. IGF-1, LC/MS, S 133 37 - 208 ng/mL 08/22/2024 11:52 AM CDT [facility] IGF Z-score 0.84 -2.0 - 2.0 SD 08/22/2024 11:52 AM CDT [facility] Comment: ADDITIONAL INFORMATION This test was developed and its performance characteristics determined by [facility] in a manner consistent with CLIA requirements. This test has not been cleared or approved by the U.S. Food and Drug Administration. Test Performed by: [facility] [address] [place] [address] Warp Coiler: Yordan Leonard Ph.D.; CLIA# [id number] Blood Peripheral blood specimen / Unknown Venipuncture / Unknown 08/15/2024 10:19 AM CDT 08/15/2024 10:19 AM CDT us Kenya Agarwal MD LAB BLOOD ORDERABLES Final Resu lt [facility] * ACTH (08/15/2024 10:19 AM CDT) Only the most recent of2 resultswithin the time period is included. [facility] ACTH 14 7 - 63 pg/mL 08/15/2024 10:51 AM CDT [facility] Blood Peripheral blood specimen / Unknown Venipuncture / Unknown 08/15/2024 10:19 AM CDT 08/15/2024 10:19 AM CDT Yan [facility] - 08/15/2024 10:51 AM CDT Reference range established based on adult population (7 - 10am draws). No established reference values for p.m. draws. Results greater than 1826 pg/mL may not be reliable due to matrix effect with extended dilution as it exceeds the sanitation tank washer's recommended limit. ACTH reference intervals are established for the morning hours from 7-10 am. Due to the circadian rhythm of ACTH levels in plasma, the sample collection time must be noted. Caution should be exercised when interpreting such values and done in conjunction with clinical context. us Kenya Agarwal MD LAB BLOOD ORDERABLES Final Resu lt LINSEY JIMENEZ MD [facility] [address] [facility], [facility] [address] [place] [address] * Prolactin (08/15/2024 10:19 AM CDT) Only the most recent of2 resultswithin the time period is included. Prolactin Level 20.0 4.8 - 23.3 ng/mL 08/15/2024 2:45 PM CDT [facility] Blood Peripheral blood specimen / Unknown Venipuncture / Unknown 08/15/2024 10:19 AM CDT 08/15/2024 10:19 AM CDT Narrative [facility] - 08/15/2024 2:45 PM CDT Results greater than 4700.0 ng/mL may not be reliable due to matrix effect with extended dilution as it exceeds the sanitation tank washer s recommended limit. Caution should be exercised when interpreting such values and done in conjunction with clinical context. us Kneya Agarwal MD LAB BLOOD ORDERABLES Final Resu lt Performing Organization Address [facility] de Phone Number [facility] Unless otherwise noted, all lab tests performed by: Division of Pathology and Laboratory Medicine [address] [place] [address] * Estradiol level (08/15/2024 10:19 AM CDT) Only the most recent of2 resultswithin the time period is included. Pathologist [facility] Estradiol <11 pg/mL 08/15/2024 2:4 6 PM CDT [facility] Blood Peripheral blood specimen / Unknown Venipuncture / Unknown 08/15/2024 10:19 AM CDT 08/15/2024 10:19 AM CDT Narrative [facility] - 08/15/2024 2:46 PM CDT Estradiol Reference Ranges Adult Female: Follicular: 31 - 90 pg/mL Luteal: 60 - 232 pg/mL Ovulation: 60 - 533 pg/mL Postmenopause: < 138 pg/ml Patients treated with Fulvestrant will show falsely increase in estradiol concentrations due to cross-reaction. For further information or assistance, please contact pathologist. us Kenya Agarwal MD LAB BLOOD ORDERABLES Final Resu lt Performing Organization Address City/[facility] Co de Phone Number [facility] Unless otherwise noted, all lab tests performed by: Division of Pathology and Laboratory Medicine [address] [place] [address] * T3 (08/15/2024 10:19 AM CDT) Only the most recent of2 resultswithin the time period is included. Triiodothyronine 122 80 - 200 ng/dL 08/15/2024 11:01 AM CDT [facility] Blood Peripheral blood specimen / Unknown Venipuncture / Unknown 08/15/2024 10:19 AM CDT 08/15/2024 10:19 AM CDT us Kenya Agarwal MD LAB BLOOD ORDERABLES Final Resu lt [address] [address] * TSH (08/15/2024 10:19 AM CDT) Only the most recent of2 resultswithin the time period is included. Thyroid Stimulating Hormone 4.15 0.27 - 4.20 mcunit/mL 08/15/2024 11:01 AM CDT [facility] Blood Peripheral blood specimen / Unknown Venipuncture / Unknown 08/15/2024 10:19 AM CDT 08/15/2024 10:19 AM CDT us Kenya Agarwal MD LAB BLOOD ORDERABLES Final Resu lt [address] [address] * Free T4 (08/15/2024 10:19 AM CDT) Only the most recent of2 resultswithin the time period is included. T4 (Thyroxine) Free 1.01 0.92 - 1.68 ng/dL 08/15/2024 11:01 AM CDT [facility] Blood Peripheral blood specimen / Unknown Venipuncture / Unknown 08/15/2024 10:19 AM CDT 08/15/2024 10:19 AM CDT us Kenya Agarwal MD LAB BLOOD ORDERABLES Final Resu lt Performing Organization Address [facility] Co de Phone Number [address] [address] * (ABNORMAL) Testosterone Level (08/15/2024 10:19 AM CDT) Testosterone Total <3(L) 3 - 41 ng/dL 08/15/2024 11:01 AM CDT [facility] Blood Peripheral blood specimen / Unknown Venipuncture / Unknown 08/15/2024 10:19 AM CDT 08/15/2024 10:19 AM CDT [facility] - 08/15/2024 11:01 AM CDT Reference Ranges: Male: Age 20 - 49 249 - 836 Age >=50 193 - 740 Female: Age 20 - 49 8 - 48 Age >=50 3 - 41 us Kenya Agarwal MD LAB BLOOD ORDERABLES Final Resu lt Performing Organization Address City/[facility]/ZIP Co de Phone Number [address] [address] * LH (08/15/2024 10:19 AM CDT) Only the most recent of2 resultswithin the time period is included. Luteinizing Hormone 12.5 mIU/mL 08/15/2024 2:46 PM CDT [facility] Blood Peripheral blood specimen / Unknown Venipuncture / Unknown 08/15/2024 10:19 AM CDT 08/15/2024 10:19 AM CDT Narrative [facility] - 08/15/2024 2:46 PM CDT Luteinizing Hormone Reference Ranges Female: Follicular: 2.4 - 12.6 mIU/mL Luteal: 1.0 - 11.4 mIU/mL Ovulation: 14.0 - 95.6 mIU/mL Post-menopause: 7.7 - 58.5 mIU/mL us Kenya Agarwal MD LAB BLOOD ORDERABLES Final Resu lt [facility] Unless otherwise noted, all lab tests performed by: Division of Pathology and Laboratory Medicine [address] [place] [address] * FSH Level (08/15/2024 10:19 AM CDT) Only the most recent of2 resultswithin the time period is included. Follicle Stimulating Hormone 27.8 mIU/mL 08/15/2024 2:46 PM CDT [facility] Blood Peripheral blood specimen / Unknown Venipuncture / Unknown 08/15/2024 10:19 AM CDT 08/15/2024 10:19 AM CDT Narrative [facility] - 08/15/2024 2:46 PM CDT Follicle Stimulating Hormone Reference Ranges Female: Follicular: 3.5 - 12.5 mIU/mL Luteal: 1.7 - 7.7 mIU/mL Ovulation: 4.7 - 21.5 mIU/mL Post-menopause: 25.8 - 134.8 mIU/mL us Kenya Agarwal MD LAB BLOOD ORDERABLES Final Resu lt Performing Organization Address City/[facility] Co de Phone Number [facility] Unless otherwise noted, all lab tests performed by: Division of Pathology and Laboratory Medicine [address] [place] [id number] * Cortisol, Total (08/15/2024 10:19 AM CDT) Only the most recent of2 resultswithin the time period is included. Cortisol 8.17 mcg/dL 08/15/2024 11: 01 AM CDT [facility] Blood Peripheral blood specimen / Unknown Venipuncture / Unknown 08/15/2024 10:19 AM CDT 08/15/2024 10:19 AM CDT Narrative [facility] - 08/15/2024 11:01 AM CDT Cortisol reference intervals are established for [...] Afternoon (4-8 pm): 2.47 - 11.9 mcg/dL us Kenya Agarwal MD LAB BLOOD ORDERABLES Final Resu lt LINSEY JIMENEZ [facility] [address] [facility], [facility] [address] [place] [address] * (ABNORMAL) .CBC (02/08/2024 12:38 PM CDT) White Blood Cell 8.1 4.1 - 10.5 K/uL 02/08/2024 12:[address] [facility] Red Blood Cell 4.93 3.99 - 5.46 M/uL 02/08/2024 12:[address] [facility] Hemoglobin 14.8 12.2 - 15.3 g/dL 02/08/2024 12:[address] [facility] Hematocrit 46.1 36.4 - 46.8 % 02/08/2024 12:[address] [facility] Mean Cell Volume 94 82 - 99 fL 02/08/2024 12:[address] [facility] Mean Cell Hemoglobin 30.0 26.6 - 33.2 pg 02/08/2024 12:[address] [facility] Mean Cell Hemoglobin Concentration 32.1 31.1 - 35.2 g/dL 02/08/2024 12:[address] [facility] RDW-SD 43.9 37.5 - 49.7 fL 02/08/2024 12:[address] [facility] Red Cell Diameter Width 12.5 11.6 - 15.5 % 02/08/2024 12:[address] [facility] Platelet 230 160 - 397 K/uL 02/08/2024 12:[address] [facility] Mean Platelet Volume 10.1 9.1 - 12.6 fL 02/08/2024 12:[address] [facility] Neutrophil % 64.1 43.2 - 72.7 % 02/08/2024 12:[address] [facility] Lymphocyte % 26.2 16.8 - 46.2 % 02/08/2024 12:[address] [facility] Monocyte % 7.5 5.1 - 12.5 % 02/08/2024 12:[address] [facility] Eosinophil % 1.7 0.4 - 6.3 % 02/08/2024 12:[address] [facility] Basophil % 0.5 0.2 - 1.4 % 02/08/2024 12:[address] [facility] IGRE % 0.0(L) 0.1 - 1.5 % 02/08/2024 12:[address] [facility] Comment:The IGRE% includes M etamyelocytes, Myelocytes and Promyelocytes. Neutrophil Abs 5.20 1.95 - 7.25 K/uL 02/08/2024 12:[address] [facility] Lymphocyte Abs 2.13 1.01 - 3.24 K/uL 02/08/2024 12:[address] [facility] Monocyte Abs 0.61 0.24 - 0.85 K/uL 02/08/2024 12:[address] [facility] Eosinophil Abs 0.14 0.02 - 0.50 K/uL 02/08/2024 12:[address] [facility] Basophil Abs 0.04 0.02 - 0.09 K/uL 02/08/2024 12:[address] [facility] IG Abs 0.00(L) 0.01 - 0.12 K/uL 02/08/2024 12:[address] [facility] Blood Peripheral blood specimen / Unknown Venipuncture / Unknown 02/08/2024 12:38 PM CDT 02/08/2024 12:38 PM CDT us Kenya Agarwal MD LAB BLOOD ORDERABLES Final Resu lt [facility] [place] [address] [facility], [facility] [address] [place] [address] * (ABNORMAL) Comprehensive Metabolic Panel (02/08/2024 12:38 PM CDT) Bilirubin Total 0.3 0.0 - 1.2 mg/dL 02/08/2024 1:[address] [facility] Comment:Indocyanine Green (I CG) may cause falsely elevated bilirubin results. Total and direct bilirubin must not be measured from samples containing indocyanine green. False elevation of total bilirubin can be seen in patients with IgG concentrations above 28 g/L. eGFR 108 >=60 mL/min/1. 73 sq. m 02/08/2024 1:[address] [facility] Comment: The eGFRcr is calculated with the [...] 6.4 - 8.3 gm/dL 02/08/2024 1:[address] [facility] Calcium Level Total 9.6 8.2 - 10.2 mg/dL 02/08/2024 1:[address] [facility] Alkaline Phosphatase 140(H) 35 - 104 U/L 02/08/2024 1:[address] [facility] Albumin Level 4.2 3.5 - 5.2 gm/dL 02/08/2024 1:[address] [facility] AST 17 <=32 U/L 02/08/2024 1:[address] [facility] ALT 20 <=33 U/L 02/08/2024 1:[address] [facility] Sodium Level 139 136 - 145 mmol/L 02/08/2024 1:[address] [facility] Potassium Level 3.8 3.4 - 4.5 mmol/L 02/08/2024 1:[address] [facility] Chloride 100 98 - 107 mmol/L 02/08/2024 1:[address] [facility] CO2 26 22 - 29 mmol/L 02/08/2024 1:[address] [facility] Anion Gap 13 4 - 14 mmol/L 02/08/2024 1:[address] [facility] Creatinine 0.53 0.51 - 0.95 mg/dL 02/08/2024 1:[address] [facility] BUN 7 6 - 23 mg/dL 02/08/2024 1:[address] [facility] Glucose Level 179(H) 70 - 99 mg/dL 02/08/2024 1:[address] [facility] Comment: Effective 05/27/16, the glucose reference intervals have been updated based on [place] [employer] guidelines (Standards of Medical Care [...] 12:38 PM CDT 02/08/2024 12:38 PM CDT us Kenya Agarwal MD LAB BLOOD ORDERABLES Final Resu lt [facility] [address] [facility], [facility] [address] [place] [address] * (ABNORMAL) Vitamin D 25OH (02/08/2024 12:38 PM CDT) [facility] Vitamin D 25 OH 17(L) 30 - 100 ng/mL 02/08/2024 1:21 PM CDT [place] Blood Peripheral blood specimen / Unknown Venipuncture / Unknown 02/08/2024 12:38 PM CDT 02/08/2024 12:38 PM CDT [facility] - 02/08/2024 1:21 PM CDT Reference Range: Deficiency: <=20 ng/mL Insufficiency: 21-29 ng/mL Sufficiency: 30-100 ng/mL Potential toxicity: >100 ng/mL us Kenya Agarwal MD LAB BLOOD ORDERABLES Final Resu lt Performing Organization Address [facility]/ZIP Co de Phone Number [facility] [address] [facility], [facility] [address] [place] [address] * (ABNORMAL) POC Glucose Screen - Fingerstick (12/10/2023 12:53 PM CHIEF PROGRAM OFFICER) [facility] Glucose Screen 151(H) 70 - 99 mg/dL 12/10/2023 12:54 PM [facility] POC Sample Type Capillary 12/10/2023 12:54 PM [facility] Blood 12/10/2023 12:5 3 PM CHIEF PROGRAM OFFICER 12/10/2023 12:54 PM CHIEF PROGRAM OFFICER [facility] - 12/10/2023 12:54 PM CHIEF PROGRAM OFFICER Capillary blood samples, e.g. obtained by fingerstick, [...] questionable test results by core lab methodology. us Red Berman APRN POCT ORDERABLES - DEVICE Final Result Performing Organization Address City/[facility]/ZIP Co de Phone Number [facility] [place] [address] [facility], [address] [address] [place] [address] * MRI Orbits with and without Contrast (12/10/2023 12:53 PM CHIEF PROGRAM OFFICER) Anatomical Region Laterality Modality Head Magnetic Resonan ce 12/13/2023 3:28 PM CHIEF PROGRAM OFFICER Impressions 12/13/2023 3:34 PM CHIEF PROGRAM OFFICER Stable treatment change of the left nasopharynx and skull base. ACTIONABLE ITEMS/RECOMMENDATIONS*: None. Narrative 12/13/2023 3:34 PM CHIEF PROGRAM OFFICER FULL RESULT: Examination: MRI ORBITS W WO [...] related changes of the left nasopharynx and andrse clival skull base are unchanged. The visualized brain including cavernous sinus, Meckel's caves, and the temporal lobes are unremarkable. Chronic opacification of bilateral mastoid air cells and left sphenoid sinus are unchanged. Survey of the neck shows no evidence of enlarged lymph nodes. Remaining marrow signal is normal. Procedure Note [place], MD Linda - 12/13/2023 FULL RESULT: Examination: [...] and skull base. ACTIONABLE ITEMS/RECOMMENDATIONS*: None. Red Costa Antonella LICENSED SURVEYOR IMG MRI ORDERABLES Final Result after 10/05/2023 Insurance MEDICARE [place]IC[place] Advance Directives * Full Code (Latest Code [...] 10:42 PM 12/15/2022 9:30 PM Care Teams Stave Planer Tender Relationship Specialty Start Date End Date Bina Obando MD [address] [place] [phone] [email or web address] PCP - External Referring Otolaryngology 11/12/22 Kenya Agarwal MD [address] [place] [phone] [email or web address] PCP - General Head and Neck Surgery 11/12/22 Trent Irving [facility] [place] [address] Family Practice 11/26/22 [place] [address] [place] [phone] Family Practice 11/26/22 Vignesh Waddell MD [address] [place] [id number] [email or web address] Pulmonary Medicine 11/26/22 Naa Miller MD [address] [place] [phone] Cardiology 11/26/22 Tapan Harper MD [address] [place] [address] [email or web address] Gastroenterology 11/26/22 Rafael Rosas MD [address] [place] [phone] Ophthalmology 11/26/22 Suzanne Mcgrath MD [address] [place] [phone] [email or web address] Consulting Physician Ophthalmology 12/29/22 Winter Luu MD [address] [place] [phone] [email or web address] Consulting Physician Radiation Oncology 11/26/22 Vaibhav Rosario MD [address] [place] [phone] [email or web address] Consulting Physician Medical Oncology 11/26/22 Rogerio Kramer MD [address] [place] [phone] [email or web address] Consulting Physician Pain Management 01/20/23 Rosana Harkins MD [address] [place] [phone] [email or web address] Consulting Physician Hematology and Oncology 03/31/23 No Andrade MD [address] [place] [phone] [email or web address] Consulting Physician Endocrinology 09/01/23
[2024-10-04 14:26] LABS: Absolute Basophils 0.1 K/uL (0-0.5); Absolute Eosinophils 0.2 K/uL (0-0.5); Absolute Lymphocytes (CBC) 2.5 K/uL (0.7-4.9); Absolute Monocytes 0.6 K/uL (0.1-1.3); Absolute Neutrophil 4.7 K/uL (1.8-8.0); Basophils % 1.3 % (0-1.3); Eosinophils % 1.9 % (0-4.4); Hematocrit 45.9 % (36.0-45.0); Hemoglobin 15.1 g/dL (12.0-15.0); Lymphocytes % 31.1 % (15.3-44.8); MCH 30.5 pg (27.0-35.0); MCHC 32.8 g/dL (32.0-36.0); MCV 92.8 fL (80-100); MPV 8.8 fL (7.6-11.3); Monocytes % 7.6 % (3.3-12.3); Neutrophils % 58.1 % (41.7-73.7); Platelets 267 thou/uL (152-406); RBC Red Blood Cell Count 4.95 M/uL (3.86-4.86); Red Cell Distribution Width 13.9 % (12.1-15.2)
[2024-10-04 14:34] LABS: Anion Gap 10.8 mEq/L (5.0-15.0); Potassium 3.8 mEq/L (3.5-5.1); Troponin High Sensitivity 4.4 pg/mL (<58.9)
--- NOTE | 2024-10-04 14:43 | RAD REPORT ---
Procedure: Chest Single View HISTORY: Cough COMPARISON: March 2024 FINDINGS: The lungs appear clear of acute infiltrate. No significant pleural effusion noted. The heart is normal size. IMPRESSION: No acute abnormality is displayed.
[2024-10-04 14:45] LABS: SARS-CoV-2 Antigen CONTROL BLUE LINE VIS/BG OK; SARS-CoV-2 Antigen Rapid Res Negative (Negative)
--- NOTE | 2024-10-04 14:58 | RAD REPORT ---
EXAMINATION: US bilateral LOWER EXTREMITY VENOUS DOPPLER CLINICAL INDICATION: Leg pain TECHNIQUE: Sonographic evaluation of the veins of the lower extremity bilaterally formed.Grayscale, c olor and spectral analysis performed on all vessels COMPARISON: 2022 FINDINGS: The common femoral, superficial femoral, greater saphenous, popliteal and posterior tibial veins bila terally are compressible and demonstrate augmentation. Doppler demonstrates good flow. IMPRESSION: No evidence of deep venous thrombosis involving either lower extremity
[2024-10-04] MEDS ORDERED: IPRATROPIUM BROM 0.5MG/2.5ML ONE (15:03)
[2024-10-04] MEDS ORDERED: NA CHLORIDE 0.9% 500 ML ONE (15:03)
[2024-10-04] MEDS ORDERED: ALBUTEROL 2.5 MG/3 ML NEB SOL ONE (15:03)
--- NOTE | 2024-10-04 16:18 | EDPHYS ---
Physician Documentation [facility] Name: Maria De Jesus Acosta Age: 59 yrs Sex: Female : 1965 Arrival Date: 10/04/2024 Time: 13:07 Bed 6 Private MD: MAYNOR Physician Dominguez Voss HPI: 10/04 16:22 This 59 yrs old Female presents to ER via Wheelchair with complaints of Chest kb Pain - sick 2wks. 16:22 Pt is a 59 year old female who presents for cough, congestion, shortness of breath, kb chills, malaise, fatigue, chest pain, bilateral leg pain (worse on the left) that started 2 weeks ago. States she has been in bed a lot over the last 2 weeks. No aggravating or alleviating factors. Also reports rectal pain and intermittent bleeding that started 2 years ago. States she is supposed to follow up with Dr Harper for this, but has had to cancel appointments so hasn't seen him recently. . Historical: - Allergies: 13:32 Doxycycline; ap3 13:32 kiwi; ap3 13:32 metoclopramide HCl; ap3 13:32 orange juice; ap3 13:32 Reglan; ap3 - PMHx: 13:32 Asthma; CHF; COPD; Crohn's; Diabetes - NIDDM; Hypertension; Nasal cancer; ap3 - PSHx: 13:32 Appendectomy; Cholecystectomy; Gastric Bypass; Ligation of fallopian tube; partial ap3 hysterectomy; Shoulder; - Immunization history:: Adult Immunizations up to date. - Infectious Disease History:: Denies. - Social history:: Smoking status: unknown. ROS: 14:03 Constitutional: As per HPI kb Exam: 14:03 Constitutional: This is a well developed, well nourished patient who is awake, alert, kb and in no acute distress. Head/Face: Normocephalic, atraumatic. ENT: Moist Mucous membranes Cardiovascular: Regular rate Respiratory: Respirations even and unlabored. No increased work of breathing. Talking in full sentences Skin: Warm, dry with normal turgor. Normal color. MS/ Extremity: Pulses equal, no cyanosis. Neurovascular intact. Full, normal range of motion. Neuro: Awake and alert, GCS 15, oriented to person, place, time, and situation. 14:04 Respiratory: Breath sounds: wheezing: expiratory that is mild, is heard in the right kb posterior middle lobe and right posterior lower lobe, 15:18 ECG was reviewed by the Attending Physician. kb 16:22 Abdomen/GI: Rectal exam: hemorrhoid(s), external, with pain, kb Vital Signs: 13:30 BP 118 / 86; Pulse 76; Resp 20; Temp 98.1(O); Pulse Ox 99% on R/A; ap3 16:33 BP 115 / 76; Pulse 80; Resp 18; Pulse Ox 100% on R/A; ko1 MDM: 13:17 Medical Screening Exam initiated kb 16:20 Differential diagnosis: flu, covid, pneumonia, uri, bronchitis. Data reviewed: vital kb signs, nurses notes. Historians other than the Patient: Daughter/Son: son. Counseling: I had a detailed discussion with the patient and/or guardian regarding the historical points, exam findings, and any diagnostic results supporting the discharge/admit diagnosis, lab results, radiology results, the need for outpatient follow up, a family practitioner, to return to the emergency department if symptoms worsen or persist or if there are any questions or concerns that arise at home. ED course: Pt feeling better after treatment and is ready to go home. . 10/04 13:36 Order name: Basic Metabolic Panel; Complete Time: 14:36 kb 10/04 13:36 Order name: CBC with Diff; Complete Time: 14:36 kb 10/04 13:36 Order name: Troponin HS; Complete Time: 14:36 kb 10/04 13:36 Order name: Flu; Complete Time: 14:47 kb 10/04 13:36 Order name: SARS-COV-2 Antigen Rapid; Complete Time: 14:47 kb 10/04 13:36 Order name: XRAY Chest (1 view); Complete Time: 14:43 kb 10/04 13:36 Order name: US Extremity Venous W Compression Logan; Complete Time: 15:00 kb 10/04 13:36 Order name: Cardiac monitoring; Complete Time: 14:58 kb 10/04 13:36 Order name: EKG - Nurse/Tech; Complete Time: 15:16 kb 10/04 13:36 Order name: IV Saline Lock; Complete Time: 14:09 kb 10/04 13:36 Order name: Labs collected and sent; Complete Time: 14:09 kb 10/04 13:36 Order name: O2 Per Protocol; Complete Time: 14:58 kb 10/04 13:36 Order name: O2 Sat Monitoring; Complete Time: 14:58 kb EC:18 Rate is 61 beats/min. Rhythm is regular. QRS Leeds is Normal. OR interval is normal at kb 176 msec. QRS interval is normal at 72 msec. QT interval is normal at 473 msec. Administered Medications: 15:15 Drug: Albuterol Inhalation 2.5 mg Inhalation once Route: Inhalation; ko1 15:15 Drug: Ipratropium Inhalation Aerosol 0.5 mg Inhalation once Route: Inhalation; ko1 15:15 Drug: NS 0.9% IV 500 ml 500 ml IV at 1 bolus once; to be given as a bolus over 30 ko1 minutes Volume: 500 ml; Route: IV; Rate: 1 bolus; Site: right forearm; 16:15 Follow up: Response: No adverse reaction; IV Status: Completed infusion; IV Intake: ko1 500ml Disposition Summary: 10/04/24 16:18 Discharge Ordered Notes: Location: Home kb Condition: Stable kb Diagnosis - Cough kb - Chest pain, unspecified kb Followup: kb - With: Emergency Department - When: As needed - Reason: Worsening of condition Followup: kb - With: Private Physician - When: 2 - 3 days - Reason: Recheck today's complaints, Continuance of care, Re-evaluation by your physician Discharge Instructions: - Discharge Summary Sheet kb - Nonspecific Chest Pain, Adult kb - Cough, Adult, [id number] kb Forms: - Medication Reconciliation Form kb - Antibiotic Education kb - Prescription Opioid Use kb - Patient Portal Instructions kb - Leadership Thank You Letter kb Prescriptions: - Zithromax 500 mg Oral Tablet - take 1 tablet ORAL route once daily for 5 days; 5 tablet; Refills: 0, Product kb Selection Permitted Signatures: Dispatcher [employer] EDMS Daisy Kay FNP-C FNP-Ckb Prokisch, Amanda RN RN ap3 Marycarmen Gale RN RN ko1 Corrections: (The following items were deleted from the chart) 13:36 13:36 BASIC METABOLIC PANEL+C.LAB.BRZ ordered. EDMS EDMS 13:36 13:36 CBC+H.LAB.BRZ ordered. EDMS EDMS 13:36 13:36 Troponin High Sensitivity+C.LAB.BRZ ordered. EDMS EDMS 13:36 13:36 Influenza Screen (A \T\ B)+BA.LAB.BRZ ordered. EDMS EDMS 13:36 13:36 SARS-COV-2 Antigen Rapid+I.LAB.BRZ ordered. EDMS EDMS 13:36 13:36 Chest Single View+RAD.RAD.BRZ ordered. EDMS EDMS 13:37 13:37 Extrem Venous W Compression Logan+US.RAD.BRZ ordered. EDMS EDMS 14:05 14:03 Constitutional: This is a well developed, well nourished patient who is awake, kb alert, and in no acute distress. Head/Face: Normocephalic, atraumatic. ENT: Moist Mucous membranes Cardiovascular: Regular rate Respiratory: Respirations even and unlabored. No increased work of breathing. Talking in full sentences kb
--- NOTE | 2024-10-04 16:18 | ER ---
Nurse's Notes [facility] Name: Maria De Jesus Acosta Age: 59 yrs Sex: Female : 1965 Arrival Date: 10/04/2024 Time: 13:07 Bed 6 Private MD: Diagnosis: Cough;Chest pain, unspecified Presentation: 10/04 13:30 Chief complaint: Patient states: she has been having a cough, congestion and body aches ap3 for approx 2 weeks. Coronavirus screen: Client presents with at least one sign or symptom that may indicate coronavirus-19. Ebola Screen: No symptoms or risks identified at this time. Initial Sepsis Screen: Does the patient meet any 2 criteria? No. Patient's initial sepsis screen is negative. Does the patient have a suspected source of infection? No. Patient's initial sepsis screen is negative. Risk Assessment: Do you want to hurt yourself or someone else? Patient reports no desire to harm self or others. Onset of symptoms is unknown. 13:30 Method Of Arrival: Wheelchair ap3 13:30 Acuity: EMERALD 3 ap3 Triage Assessment: 13:33 General: Appears ill, Behavior is calm, cooperative, appropriate for age, Reports ap3 chills for fever for feeling ill for fatigue for. Pain: Complains of pain in generalized body aches. Neuro: Level of Consciousness is awake, alert, obeys commands, Oriented to person, place, time, situation, Appropriate for age Speech is normal. Cardiovascular: Reports chest pain, shortness of breath, Patient's skin is warm and dry. Respiratory: Reports cough that is Airway is patent. Historical: - Allergies: 13:32 Doxycycline; ap3 13:32 kiwi; ap3 13:32 metoclopramide HCl; ap3 13:32 orange juice; ap3 13:32 Reglan; ap3 - PMHx: 13:32 Asthma; CHF; COPD; Crohn's; Diabetes - NIDDM; Hypertension; Nasal cancer; ap3 - PSHx: 13:32 Appendectomy; Cholecystectomy; Gastric Bypass; Ligation of fallopian tube; partial ap3 hysterectomy; Shoulder; - Immunization history:: Adult Immunizations up to date. - Infectious Disease History:: Denies. - Social history:: Smoking status: unknown. Screenin:34 Abuse screen: Denies threats or abuse. Nutritional screening: No deficits noted. ap3 Tuberculosis screening: No symptoms or risk factors identified. 15:16 [facility] ED Fall Risk Assessment (Adult) History of falling in the last 3 months, ko1 including since admission No falls in past 3 months (0 pts) Confusion or Disorientation No (0 pts) Intoxicated or Sedated No (0 pts) Impaired Gait Yes (1 pt) Mobility Assist Device Used Yes (1 pt) Altered Elimination No (0 pt) Score/Fall Risk Level 0 - 2 = Low Risk Oriented to surroundings, Maintained a safe environment, Educated pt \T\ family on fall prevention, incl call for assistance when getting out of bed, Assessed \T\ reinforced patient's understanding of fall precautions, Hourly rounding (assess needs \T\ fall precautionary measures) done. Assessment: 13:34 Pain: Pain began gradually. ap3 15:16 Pain: Complains of pain in chest Pain does not radiate. ko1 Vital Signs: 13:30 BP 118 / 86; Pulse 76; Resp 20; Temp 98.1(O); Pulse Ox 99% on R/A; ap3 16:33 BP 115 / 76; Pulse 80; Resp 18; Pulse Ox 100% on R/A; ko1 ED Course: 13:09 Patient arrived in ED. ra3 13:17 Daisy Kay FNP-C is PHCP. kb 13:17 Dominguez Voss MD is Attending Physician. kb 13:32 Triage completed. ap3 13:34 Arm band placed on left wrist. ap3 13:34 Patient maintains SpO2 saturation greater than 95% on room air. ap3 13:50 XRAY Chest (1 view) In Process Unspecified. EDMS 14:09 SARS-COV-2 Antigen Rapid Sent. bc6 14:09 Flu Sent. bc6 14:09 Basic Metabolic Panel Sent. bc6 14:09 CBC with Diff Sent. bc6 14:09 Troponin HS Sent. bc6 14:09 Initial lab(s) drawn, by me, sent to lab. COVID swab sent to lab. Flu and/or RSV swab bc6 sent to lab. Inserted saline lock: 22 gauge in right forearm, using aseptic technique. Blood collected. Flushed with 10 mL NS. 14:34 US Extremity Venous W Compression Logan In Process Unspecified. EDMS 15:16 Patient has correct armband on for positive identification. Allergy band placed. Fall ko1 risk band placed. Bed in low position. Call light in reach. Side rails up X2. Provided Education on: labs, meds. Pulse ox on. NIBP on. Door closed. Noise minimized. Lights dimmed. Warm blanket given. Pillow given. 15:16 No provider procedures requiring assistance completed. EKG done, by ED staff, reviewed ko1 by Daisy ANDREWS. 15:18 Marycarmen Gale, RN is Primary Nurse. ko1 16:33 IV discontinued, intact, bleeding controlled, No redness/swelling at site. Pressure ko1 dressing applied. Administered Medications: 15:15 Drug: Albuterol Inhalation 2.5 mg Inhalation once Route: Inhalation; ko1 15:15 Drug: Ipratropium Inhalation Aerosol 0.5 mg Inhalation once Route: Inhalation; ko1 15:15 Drug: NS 0.9% IV 500 ml 500 ml IV at 1 bolus once; to be given as a bolus over 30 ko1 minutes Volume: 500 ml; Route: IV; Rate: 1 bolus; Site: right forearm; 16:15 Follow up: Response: No adverse reaction; IV Status: Completed infusion; IV Intake: ko1 500ml Medication: 15:16 VIS not applicable for this client. ko1 Intake: 16:15 IV: 500ml; Total: 500ml. ko1 Outcome: 16:18 Discharge ordered by . kb 16:33 Discharged to home via wheelchair, with family, ko1 16:33 Condition: stable 16:33 Discharge instructions given to patient, family, Instructed on discharge instructions, follow up and referral plans. medication usage, Demonstrated understanding of instructions, follow-up care, medications, Prescriptions given X 1, 16:36 Patient left the ED. ko1 Signatures: Dispatcher [employer] EDMS Daisy Kay FNP-C FNP-Ckb Prokisch, Amanda RN RN ap3 Marycarmen Gale, RN RN ko1 Nayana [address] Vanessa Williamson ra3
[2024-10-04 22:13] VITALS: TEMP 98.1
[2024-10-04 22:21] VITALS: BP 115/76; O2SAT 100
== END 2024-10-04 16:36 | disposition home or self-care (01) ==
LOC: ER 13:07
DX: R05.9 Cough, unspecified (principal); R07.9 Chest pain, unspecified; K64.9 Unspecified hemorrhoids; Z11.52 Encounter for screening for COVID-19
CPT/HCPCS: 85025; 80048; 36415; 84484; 87804 ×2; 71045; 93970; 96360; 99285; 87811; J7613; J7644; J7040

== ENCOUNTER 2025-01-28 05:59 | Inpatient (IN) | payer OTHER ==
--- OUTSIDE RECORDS SUMMARY | 2025-01-28 06:04 | XMS REPORT | Clinical Summary ---
Author Name Unknown Organization [facility] Cancer Reader Address [address] [place] [address] Care Team Providers Care Bag Sorter Name Role Phone Bina Obando MD Unavailable [phone] Kenya Agarwal MD Primary Care Provider [phone] Trent Irving MD Unavailable [phone] Randall Sheriff MD Unavailable [phone] Vignesh Waddell MD Unavailable [phone] Naa Miller MD Unavailable [phone] [facility] Unavailable [phone] Rafael Rosas MD Unavailable Unavailab Suzanne Mason MD Unavailable [phone] Winter Luu MD Unavailable [phone] Vaibhav Rosario MD Unavailable [phone] Rogerio Kramer MD Unavailable [phone] Rosana Harkins MD Unavailable No Andrade MD Unavailable [phone] Allergies Active Allergy Reactions Criticality Noted Date [...] procedure Metoclopramide Hcl Other (See Comments) 10/16/2022 [place] Juice Nausea And Vomiting,GI Intolerance Low 04/18/2021 [...] Active naloxone (Narcan) 4 mg/actuation nasal sprayIndications :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 another dose into the other nostril after 2 minutes if the patient does not respond 2 each 023 Active Additional Information Patient not taking.Reason: No longer taking, Reported on 02/08/2024 pen needle, diabetic (Easy Comfort Pen [employer]ner) 31 gauge x 5/16" ndleIndications: Type 2 [...] 1 TABLET BY MOUTH EVERY DAY Active metoprolol succinate (TOPROL XL) 100 mg [...] 7 days. 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 Date Type Department Care Team Description 12/26/2024 [facility] [address] [place] [address], 6th [place] [address] Lisy Mcmullen APRN Neuropathy due to diabetes mellitus 09/20/2024 [facility] [address], 6th [place] [address] No Andrade MD Neuropathy due to diabetes mellitus 09/19/2024 Orders Only MD [facility] [place] - Thoracic Medicine [address] [place] [address] Vaibhav Rosario MD 08/22/2024 Orders Only Neuroradiology [address] [place] [address] Dayday Villavicencio MD 08/16/2024 3:30 PM CDT Nutrition Clinical Nutrition For your Nutrition appointment location directions please call: Kenya Agarwal MD Martin, Cathy A, ADAM 08/16/2024 Documentation Rehabilitation Services [address] [place] [address], 1st Floor G1.3418 [place] [address] Skye Reed, PT 08/15/2024 8:45 AM CDT Follow-Up MD [facility] [place] - Head & Neck Surgery [address] [place] [address] Kenya Agarwal MD Adenoid cystic carcinoma of nasopharynx, NOS (Primary Dx) 08/15/2024 Travel 02/08/2024 8:45 AM CDT Follow-Up MD [facility] [place] [facility] Head & Neck Surgery [address] [place] [address] Kenya Agarwal MD Adenoid cystic carcinoma of nasopharynx, NOS (Primary Dx) 02/08/2024 Travel after 01/29/2024 Surgical History Surgery Date Site/Laterality Comments APPENDECTOMY [id number] COLONOSCOPY [id number] CHOLECYSTECTOMY [id number] KNEE ARTHROPLASTY Right SHOULDER SURGERY 050@2010 Left UPPER GASTROINTESTINAL ENDOSCOPY [id number] SECTION, CLASSIC 11/01/1984 - 10/31/1985 PARTIAL HYSTERECTOMY 03/01/2012 - 03/31/2012 MYRINGOTOMY WITH ASPIRATION AND INSERTION PE TUBES 11/01/2019 - 10/31/2020 SLEEVE GASTROPLASTY N/A Medical History Medical History Date Comments Hypertension [id number] Hyperlipidemia [id number] Allergic rhinitis 73641000 Fatty liver 25391421 Gastric reflux 80785018 Gastric ulcer 85286210 Crohn's disease 54430373 Gout 19350599 Type 2 diabetes mellitus wit h hyperglycemia 1460292 Anxiety 05292586 Chronic obstructive pulmonary disease On home supplemental [...] Sex Assigned at Female 11/12/2022 2:07 PM SURGICAL FORCEPS FABRICATOR Legal Sex Female 11:09 AM SURGICAL FORCEPS FABRICATOR Gender Identity Female 11/12/2022 2:07 PM SURGICAL FORCEPS FABRICATOR Sexual Orientation Not on file Obstetrics History [...] Body Mass Index 48.62 09/13/2023 10:01 AM SURGICAL FORCEPS FABRICATOR Plan of Treatment Upcoming Encounters Date Type Department Care Team (Late st Contact Info) Description 02/20/2025 8:15 AM CDT Lab MD [facility] [place] [facility] [address] [place] [address] Kenya Agarwal MD [address] [place] [address] [phone] [email or web address] 02/20/2025 9:05 AM CDT Ancillary Procedure MD [facility] [place] [address] [place] [address] Kenya Agarwal MD [address] [place] [address] [email or web address] 02/20/2025 11:15 AM CDT Ancillary Procedure MD [facility] [place] [address] [address] Kenya Agarwal MD [address] [place] [address] [email or web address] 02/20/2025 2:00 PM CDT Follow-Up MD [facility] [place] - Radiation Oncology [address] [place] [address] Winter Luu MD [address] [place] [address] [phone] [email or web address] 02/20/2025 2:30 PM CDT Nutrition Clinical Nutrition For your Nutrition appointment location directions please call: Kenya Agarwal MD [address] [place] [address] [email or web address] Lian Jaramillo, ADAM [address] [facility] [address] [place] [address] [email or web address] Health Maintenance Due Date Last Done Comments Pneumococcal Vaccine: 50+ Ye ars (1 of 2 - PCV) 1986 COVID-19 Vaccine (2023-2 5 season) 2024 07/11/2021, 01/01/2021, 12/03/2020 Influenza Vaccine (#1) 2024 2, 11/13/2020, 09/29/2013, Additional history exists Medical Devices Implanted Type Area Dog Or Animal Sitter Device Identifier Shelf Expiration Date Model / [...] Adenoid cystic carcinoma of nasopharynx, NOS after 01/29/2024 Results * Insulin-Like Growth Factor I (08/15/2024 10:19 AM CDT) Only the most recent of2 resultswithin the time period is included. IGF-1, LC/MS, S 133 37 - 208 ng/mL 08/22/2024 11:52 AM CDT [facility] CAROLYN IGF Z-score 0.84 -2.0 - 2.0 SD 08/22/2024 11:52 AM CDT [facility] DORINAAXEL Comment: ADDITIONAL INFORMATION This test was developed and its performance characteristics determined by [facility] in a manner consistent with CLIA requirements. This test has not been cleared or approved by the U.S. Food and Drug Administration. Test Performed by: [facility] - [address] [address] Supervisor Spring Up: Yordan Leonard Ph.D.; CLIA# [id number] Blood Peripheral blood specimen / Unknown Venipuncture / Unknown 08/15/2024 10:19 AM CDT 08/15/2024 10:19 AM CDT Kenya Agarwal MD LAB BLOOD ORDERABLES Final Resu lt [facility] PRATIK LEON * ACTH (08/15/2024 10:19 AM CDT) Only the most recent of2 resultswithin the time period is included. ACTH 14 7 - 63 pg/mL 08/15/2024 10:51 AM CDT [facility] Blood Peripheral blood specimen / Unknown Venipuncture / Unknown 08/15/2024 10:19 AM CDT 08/15/2024 10:19 AM CDT Narrative [facility] - 08/15/2024 10:51 AM CDT Reference range established based on adult population (7 - 10am draws). No established reference values for p.m. draws. Results greater than 1826 pg/mL may not be reliable due to matrix effect with extended dilution as it exceeds the communication equipment mechanic's recommended limit. ACTH reference intervals are established for the morning hours from 7-10 am. Due to the circadian rhythm of ACTH levels in plasma, the sample collection time must be noted. Caution should be exercised when interpreting such values and done in conjunction with clinical context. us Kenya Agarwal MD LAB BLOOD ORDERABLES Final Resu lt Performing Organization Address City/[facility]/ZIP Co de Phone Number [facility] [address] [facility], [facility] [address] [place] [address] * Prolactin (08/15/2024 10:19 AM CDT) Only the most recent of2 resultswithin the time period is included. Prolactin Level 20.0 4.8 - 23.3 ng/mL 08/15/2024 2:45 PM CDT [facility] Blood Peripheral blood specimen / Unknown Venipuncture / Unknown 08/15/2024 10:19 AM CDT 08/15/2024 10:19 AM CDT Narrative [facility] - 08/15/2024 2:45 PM CDT Results greater than 4700.0 ng/mL may not be reliable due to matrix effect with extended dilution as it exceeds the communication equipment mechanic s recommended limit. Caution should be exercised when interpreting such values and done in conjunction with clinical context. Kenya Agarwal MD LAB BLOOD ORDERABLES Final Resu lt Performing Organization Address City/[facility] Co de Phone Number [facility] Unless otherwise noted, all lab tests performed by: Division of Pathology and Laboratory Medicine [address] [place] [address] * Estradiol level (08/15/2024 10:19 AM CDT) Only the most recent of2 resultswithin the time period is included. Estradiol <11 pg/mL 08/15/2024 2:4 6 PM CDT [facility] Blood Peripheral blood specimen / Unknown Venipuncture / Unknown 08/15/2024 10:19 AM CDT 08/15/2024 10:19 AM CDT Narrative [facility] - 08/15/2024 2:46 PM CDT Estradiol Reference Ranges Adult Female: Follicular: 31 - 90 pg/mL Luteal: 60 - 232 pg/mL Ovulation: 60 - 533 pg/mL Postmenopause: < 138 pg/ml Patients treated with Fulvestrant will show falsely increase in estradiol concentrations due to cross-reaction. For further information or assistance, please contact pathologist. Kenya Agarwal MD LAB BLOOD ORDERABLES Final Resu lt Performing Organization Address [facility] Co de Phone Number [facility] Unless otherwise noted, all lab tests performed by: Division of Pathology and Laboratory Medicine [address] [place] [address] * T3 (08/15/2024 10:19 AM CDT) Only the most recent of2 resultswithin the time period is included. Triiodothyronine 122 80 - 200 ng/dL 08/15/2024 11:01 AM CDT [facility] Blood Peripheral blood specimen / Unknown Venipuncture / Unknown 08/15/2024 10:19 AM CDT 08/15/2024 10:19 AM CDT us Kenya Agarwal MD LAB BLOOD ORDERABLES Final Resu lt [address] [address] * TSH (08/15/2024 10:19 AM CDT) Only the most recent of2 resultswithin the time period is included. Thyroid Stimulating Hormone 4.15 0.27 - 4.20 mcunit/mL 08/15/2024 11:01 AM CDT [facility] Blood Peripheral blood specimen / Unknown Venipuncture / Unknown 08/15/2024 10:19 AM CDT 08/15/2024 10:19 AM CDT us Kenya Agarwal MD LAB BLOOD ORDERABLES Final Resu lt [address] [address] * Free T4 (08/15/2024 10:19 AM CDT) Only the most recent of2 resultswithin the time period is included. T4 (Thyroxine) Free 1.01 0.92 - 1.68 ng/dL 08/15/2024 11:01 AM CDT [facility] Blood Peripheral blood specimen / Unknown Venipuncture / Unknown 08/15/2024 10:19 AM CDT 08/15/2024 10:19 AM CDT us Kenya Agarwal MD LAB BLOOD ORDERABLES Final Resu lt [place] [id number] * (ABNORMAL) Testosterone Level (08/15/2024 10:19 AM CDT) Testosterone Total <3(L) 3 - 41 ng/dL 08/15/2024 11:01 AM CDT [facility] Blood Peripheral blood specimen / Unknown Venipuncture / Unknown 08/15/2024 10:19 AM CDT 08/15/2024 10:19 AM CDT Narrative [facility] - 08/15/2024 11:01 AM CDT Reference Ranges: Male: Age 20 - 49 249 - 836 Age >=50 193 - 740 Female: Age 20 - 49 8 - 48 Age >=50 3 - 41 us Kenya Agarwal MD LAB BLOOD ORDERABLES Final Resu lt [facility] [address] [facility], [facility] [address] [place] [address] * LH (08/15/2024 10:19 AM CDT) Only the most recent of2 resultswithin the time period is included. Luteinizing Hormone 12.5 mIU/mL 08/15/2024 2:46 PM CDT [facility] Blood Peripheral blood specimen / Unknown Venipuncture / Unknown 08/15/2024 10:19 AM CDT 08/15/2024 10:19 AM CDT Narrative [facility] - 08/15/2024 2:46 PM CDT Luteinizing Hormone Reference Ranges Female: Follicular: 2.4 - 12.6 mIU/mL Luteal: 1.0 - 11.4 mIU/mL Ovulation: 14.0 - 95.6 mIU/mL Post-menopause: 7.7 - 58.5 mIU/mL us Kenya Agarwal MD LAB BLOOD ORDERABLES Final Resu lt [facility] Unless otherwise noted, all lab tests performed by: Division of Pathology and Laboratory Medicine [address] [place] [address] * FSH Level (08/15/2024 10:19 AM CDT) Only the most recent of2 resultswithin the time period is included. Follicle Stimulating Hormone 27.8 mIU/mL 08/15/2024 2:46 PM CDT [facility] Blood Peripheral blood specimen / Unknown Venipuncture / Unknown 08/15/2024 10:19 AM CDT 08/15/2024 10:19 AM CDT Narrative [facility] - 08/15/2024 2:46 PM CDT Follicle Stimulating Hormone Reference Ranges Female: Follicular: 3.5 - 12.5 mIU/mL Luteal: 1.7 - 7.7 mIU/mL Ovulation: 4.7 - 21.5 mIU/mL Post-menopause: 25.8 - 134.8 mIU/mL us Kenya Agarwal MD LAB BLOOD ORDERABLES Final Resu lt [facility] Unless otherwise noted, all lab tests performed by: Division of Pathology and Laboratory Medicine [address] [place] [address] * Cortisol, Total (08/15/2024 10:19 AM CDT) Only the most recent of2 resultswithin the time period is included. Cortisol 8.17 mcg/dL 08/15/2024 11: 01 AM CDT [facility] Blood Peripheral blood specimen / Unknown Venipuncture / Unknown 08/15/2024 10:19 AM CDT 08/15/2024 10:19 AM CDT Narrative [facility] - 08/15/2024 11:01 AM CDT Cortisol reference [...] BLOOD ORDERABLES Final Resu lt [facility] [address] [facility], [facility] [address] [place] [address] * (ABNORMAL) .CBC (02/08/2024 12:38 PM CDT) White Blood Cell 8.1 4.1 - 10.5 K/uL 02/08/2024 12:44 PM T [facility] Red Blood Cell 4.93 3.99 - 5.46 M/uL 02/08/2024 12:44 PM [facility] Hemoglobin 14.8 12.2 - 15.3 g/dL 02/08/2024 12:44 PM [facility] Hematocrit 46.1 36.4 - 46.8 % 02/08/2024 12:44 PM [facility] Mean Cell Volume 94 82 - 99 fL 02/08/2024 12:44 PM [facility] Mean Cell Hemoglobin 30.0 26.6 - 33.2 pg 02/08/2024 12:44 PM [facility] Mean Cell Hemoglobin Concentration 32.1 31.1 - 35.2 g/dL 02/08/2024 12:44 PM [facility] RDW-SD 43.9 37.5 - 49.7 fL 02/08/2024 12:44 PM [facility] Red Cell Diameter Width 12.5 11.6 - 15.5 % 02/08/2024 12:44 PM [facility] Platelet 230 160 - 397 K/uL 02/08/2024 12:44 PM [facility] Mean Platelet Volume 10.1 9.1 - 12.6 fL 02/08/2024 12:44 PM [facility] Neutrophil % 64.1 43.2 - 72.7 % 02/08/2024 12:44 PM [facility] Lymphocyte % 26.2 16.8 - 46.2 % 02/08/2024 12:44 PM [facility] Monocyte % 7.5 5.1 - 12.5 % 02/08/2024 12:44 PM [facility] Eosinophil % 1.7 0.4 - 6.3 % 02/08/2024 12:44 PM [facility] Basophil % 0.5 0.2 - 1.4 % 02/08/2024 12:44 PM [facility] IGRE % 0.0(L) 0.1 - 1.5 % 02/08/2024 12:44 PM [facility] Comment:The IGRE% includes M etamyelocytes, Myelocytes and Promyelocytes. Neutrophil Abs 5.20 1.95 - 7.25 K/uL 02/08/2024 12:44 PM [facility] Lymphocyte Abs 2.13 1.01 - 3.24 K/uL 02/08/2024 12:44 PM [facility] Monocyte Abs 0.61 0.24 - 0.85 K/uL 02/08/2024 12:44 PM [facility] Eosinophil Abs 0.14 0.02 - 0.50 K/uL 02/08/2024 12:44 PM [facility] Basophil Abs 0.04 0.02 - 0.09 K/uL 02/08/2024 12:44 PM [facility] IG Abs 0.00(L) 0.01 - 0.12 K/uL 02/08/2024 12:44 PM [facility] Blood Peripheral blood specimen / Unknown Venipuncture / Unknown 02/08/2024 12:38 PM CDT 02/08/2024 12:38 PM CDT us Kenya Agarwal MD LAB BLOOD ORDERABLES Final Resu lt [facility] [address] [facility], [facility] [address] [place] [address] * (ABNORMAL) Comprehensive Metabolic Panel (02/08/2024 12:38 PM CDT) Bilirubin Total 0.3 0.0 - 1.2 mg/dL 02/08/2024 1:21 PM [facility] Comment:Indocyanine Green (I CG) may cause falsely elevated bilirubin results. Total and direct bilirubin must not be measured from samples containing indocyanine green. False elevation of total bilirubin can be seen in patients with IgG concentrations above 28 g/L. eGFR 108 >=60 mL/min/1. 73 sq. m 02/08/2024 1:21 PM [facility] Comment: The eGFRcr is calculated with [...] 6.4 - 8.3 gm/dL 02/08/2024 1:21 PM [facility] Calcium Level Total 9.6 8.2 - 10.2 mg/dL 02/08/2024 1:21 PM [facility] Alkaline Phosphatase 140(H) 35 - 104 U/L 02/08/2024 1:21 PM [facility] Albumin Level 4.2 3.5 - 5.2 gm/dL 02/08/2024 1:21 PM [facility] AST 17 <=32 U/L 02/08/2024 1:21 PM [facility] ALT 20 <=33 U/L 02/08/2024 1:21 PM [facility] Sodium Level 139 136 - 145 mmol/L 02/08/2024 1:21 PM [facility] Potassium Level 3.8 3.4 - 4.5 mmol/L 02/08/2024 1:21 PM [facility] Chloride 100 98 - 107 mmol/L 02/08/2024 1:21 PM [facility] CO2 26 22 - 29 mmol/L 02/08/2024 1:21 PM [facility] Anion Gap 13 4 - 14 mmol/L 02/08/2024 1:21 PM [facility] Creatinine 0.53 0.51 - 0.95 mg/dL 02/08/2024 1:21 PM [facility] BUN 7 6 - 23 mg/dL 02/08/2024 1:21 PM [facility] Glucose Level 179(H) 70 - 99 mg/dL 02/08/2024 1:21 PM [facility] Comment: Effective 05/27/16, the glucose reference intervals have been updated based on [place] [employer] guidelines (Standards of Medical Care [...] MD LAB BLOOD ORDERABLES Final Resu lt [facility] [address] [facility], [facility] [address] [place] [address] * (ABNORMAL) Vitamin D 25OH (02/08/2024 12:38 PM CDT) Vitamin D 25 OH 17(L) 30 - 100 ng/mL 02/08/2024 1:21 PM [facility] Blood Peripheral blood specimen / Unknown Venipuncture / Unknown 02/08/2024 12:38 PM CDT 02/08/2024 12:38 PM CDT Narrative [facility] - 02/08/2024 1:21 PM CDT Reference Range: Deficiency: <=20 ng/mL Insufficiency: 21-29 ng/mL Sufficiency: 30-100 ng/mL Potential toxicity: >100 ng/mL us Kenya Agarwal MD LAB BLOOD ORDERABLES Final Resu lt [facility] [address] [facility], [facility] [address] [place] [address] after 01/29/2024 Insurance MEDICARE PART A AND B MEDICAID [...] 10:42 PM 12/15/2022 9:30 PM Care Teams Bag Sorter Relationship Specialty Start Date End Date Bina Obando MD [address] [place] [phone] [email or web address] PCP - External Referring Otolaryngology 11/12/22 Kenya Agarwal MD [address] [place] [address] [email or web address] PCP - General Head and Neck Surgery 11/12/22 Trent [facility] [place] [address] Family Practice 11/26/22 Randall Sheriff MD [address] [place] [phone] [facility] 11/26/22 Vignesh Waddell MD [address] [place] [phone] [email or web address] Pulmonary Medicine 11/26/22 [place] [address] [place] [address] Cardiology 11/26/22 Tapan Harper MD [address] [place] [address] [email or web address] 11/26/22 Rafael Rosas MD [address] [place] [address] Ophthalmology 11/26/22 Suzanne Mcgrath MD [address] [place] [address] [email or web address] Consulting Physician Ophthalmology 12/29/22 Winter Luu MD [address] [place] [phone] [email or web address] Consulting Physician Radiation Oncology 11/26/22 Vaibhav Rosario MD [address] [place] [phone] [email or web address] Consulting Physician Medical Oncology 11/26/22 Rogerio Kramer MD [address] [place] [phone] [email or web address] Consulting Physician Pain Management 01/20/23 Rosana Harkins MD [address] [place] [phone] [email or web address] Consulting Physician Hematology and Oncology 03/31/23 No Andrade MD [address] [place] [address] [email or web address] Consulting Physician Endocrinology 09/01/23
[2025-01-28] MEDS ORDERED: IPRATROPIUM BROM 0.5MG/2.5ML ONE (06:49)
[2025-01-28] MEDS ORDERED: ALBUTEROL 2.5 MG/3 ML NEB SOL ONE (06:49)
--- NOTE | 2025-01-28 06:52 | EDPHYS ---
Physician Documentation [facility] Name: Maria De Jesus Acosta Age: 59 yrs Sex: Female : 1965 Arrival Date: 01/28/2025 Time: 05:59 Bed 18 Private MD: ED Physician Dominguez Voss HPI: 01/28 06:41 This 59 yrs old Female presents to ER via Wheelchair with complaints of ebenezre Congestion, Fever, Weakness, Wheezing. 06:41 The patient reports fever, that was measured at 92 degrees Fahrenheit. Onset: The ebenezer symptoms/episode began/occurred 5 day(s) ago. Modifying factors: there are no obvious modifying factors. Associated signs and symptoms: Pertinent positives: cough, runny nose. Severity of symptoms: At their worst the symptoms were moderate in the emergency department the symptoms are unchanged. The patient has experienced similar episodes in the past, several times. Historical: - Allergies: 06:23 metoclopramide HCl; lg3 06:23 Doxycycline; lg3 06:23 Reglan; lg3 06:23 kiwi; lg3 06:23 orange juice; lg3 06:23 Amoxicillin; lg3 - PMHx: 06:23 Asthma; CHF; COPD; Crohn's; Diabetes - NIDDM; Hypertension; Nasal cancer; lg3 - Immunization history:: Adult Immunizations up to date. - Infectious Disease History:: Denies. - Social history:: Smoking status: Patient denies any tobacco usage or history of. - Family history:: not pertinent. ROS: 06:41 Constitutional: Negative for fever, chills, and weight loss, Eyes: Negative for injury, ebenezer pain, redness, and discharge, ENT: Negative for injury, pain, and discharge, Neck: Negative for injury, pain, and swelling, Cardiovascular: Negative for chest pain, palpitations, and edema, Abdomen/GI: Negative for abdominal pain, nausea, vomiting, diarrhea, and constipation, Back: Negative for injury and pain, : Negative for injury, bleeding, discharge, and swelling, MS/Extremity: Negative for injury and deformity, Skin: Negative for injury, rash, and discoloration, Neuro: Negative for headache, weakness, numbness, tingling, and seizure, Psych: Negative for depression, anxiety, suicide ideation, homicidal ideation, and hallucinations, Allergy/Immunology: Negative for hives, rash, and allergies, Endocrine: Negative for neck swelling, polydipsia, polyuria, polyphagia, and marked weight changes, Hematologic/Lymphatic: Negative for swollen nodes, abnormal bleeding, and unusual bruising, 06:41 Respiratory: Positive for cough, wheezing, expiratory, Exam: 06:41 Constitutional: This is a well developed, well nourished patient who is awake, alert, ebenezer and in no acute distress. Head/Face: Normocephalic, atraumatic. Eyes: Pupils equal round and reactive to light, extra-ocular motions intact. Lids and lashes normal. Conjunctiva and sclera are non-icteric and not injected. Cornea within normal limits. Periorbital areas with no swelling, redness, or edema. ENT: Nares patent. No nasal discharge, no septal abnormalities noted. Tympanic membranes are normal and external auditory canals are clear. Oropharynx with no redness, swelling, or masses, exudates, or evidence of obstruction, uvula midline. Mucous membranes moist. Neck: Trachea midline, no thyromegaly or masses palpated, and no cervical lymphadenopathy. Supple, full range of motion without nuchal rigidity, or vertebral point tenderness. No Meningismus. Chest/axilla: Normal chest wall appearance and motion. Nontender with no deformity. No lesions are appreciated. Cardiovascular: Regular rate and rhythm with a normal S1 and S2. No gallops, murmurs, or rubs. Normal PMI, no JVD. No pulse deficits. Abdomen/GI: Soft, non-tender, with normal bowel sounds. No distension or tympany. No guarding or rebound. No evidence of tenderness throughout. Back: No spinal tenderness. No costovertebral tenderness. Full range of motion. Female : Normal external genitalia. Skin: Warm, dry with normal turgor. Normal color with no rashes, no lesions, and no evidence of cellulitis. MS/ Extremity: Pulses equal, no cyanosis. Neurovascular intact. Full, normal range of motion., bilateral aka Neuro: Awake and alert, GCS 15, oriented to person, place, time, and situation. Cranial nerves II-XII grossly intact. Motor strength 5/5 in all extremities. Sensory grossly intact. Cerebellar exam normal. Normal gait. Psych: Awake, alert, with orientation to person, place and time. Behavior, mood, and affect are within normal limits. 06:41 Respiratory: mild respiratory distress is noted, Respirations: labored breathing, that is mild, that is moderate, Breath sounds: bronchial sounds, decreased breath sounds, that are moderate, rhonchi, that are mild, are scattered, stridor, is not appreciated, + upper airway congestion. wheezing: that is moderate, 06:41 Musculoskeletal/extremity: ROM: full active range of motion, full passive range of motion, in all extremities, Circulation is intact in all extremities. Compartment Syndrome exam of affected extremity: is normal. Weight bearing: able to fully bear weight, Tendon exam: specific tendon testing normal through active and passive range of motion Calves: are non-tender, have equal circumference, Vital Signs: 06:19 BP 131 / 79; Resp 18; Temp 97.1; Pulse Ox 92% ; Weight 114.31 kg; Height 5 ft. 3 in. ; lg3 Pain 6/10; 06:45 BP 134 / 85; Pulse 65; Resp 18; Pulse Ox 92% on R/A; Pain 0/10; rg5 07:30 BP 134 / 90; Pulse 66; Resp 22; Pulse Ox 93% on 4 lpm NC; ld1 08:27 BP 115 / 86; Pulse 59; Resp 26; Pulse Ox 92% on 4 lpm NC; ld1 06:19 Body Mass Index 44.64 (114.31 kg, 160.02 cm) lg3 06:19 Pain Scale: Adult lg3 06:45 Pain Scale: Adult rg5 MDM: 06:20 Medical Screening Exam initiated ebenezer 06:48 Differential diagnosis: viral Infection, bacterial infection, URI, bronchitis, ebenezer pneumonia UTI. Data reviewed: vital signs, nurses notes, lab test result(s), EKG, radiologic studies, plain films. Consideration of Admission/Observation Patient was admitted/placed on observation. Escalation of care including admission/observation considered. Independent interpretation of the following test(s) in the Emergency Department EKG: See my EKG interpretation above. Test considered but Not performed: CT: no ct chest. Care significantly affected by the following chronic conditions: Diabetes, Hypertension, Congestive Heart Failure, Chronic Obstructive Pulmonary Disease, Obesity, Cancer, crohns. 01/28 06:23 Order name: Basic Metabolic Panel; Complete Time: 08:16 [facility] 01/28 06:23 Order name: CBC with Diff; Complete Time: 07:52 ebenezer 01/28 06:23 Order name: LFT's; Complete Time: 08:16 [facility] 01/28 06:23 Order name: Magnesium; Complete Time: 08:16 [facility] 01/28 06:23 Order name: NT PRO-BNP; Complete Time: 08:16 [facility] 01/28 06:23 Order name: PT-INR; Complete Time: 07:52 [facility] 01/28 06:23 Order name: Troponin HS; Complete Time: 08:16 [facility] 01/28 06:23 Order name: Blood Culture Adult (2) 01/28 06:23 Order name: Lactate w/ 2H reflex if indic.; Complete Time: 08:16 [facility] 01/28 06:23 Order name: COVID-19 Ag + Flu A+B Ag; Complete Time: 09:29 [facility] 01/28 11:36 Order name: CBC with Automated Diff EDMS 01/28 11:36 Order name: CBC with Automated Diff EDMS 01/28 11:36 Order name: CBC with Automated Diff EDMS 01/28 11:36 Order name: CBC with Automated Diff EDMS 01/28 11:36 Order name: Comprehensive Metabolic Panel EDMS 01/28 11:36 Order name: Comprehensive Metabolic Panel EDMS 01/28 11:36 Order name: Comprehensive Metabolic Panel EDMS 01/28 11:36 Order name: Comprehensive Metabolic Panel EDMS 01/28 16:45 Order name: Glucose, Ancillary Testing EDMS 01/28 06:23 Order name: XRAY Chest (1 view); Complete Time: 07:13 01/28 06:23 Order name: Cardiac monitoring; Complete Time: 06:52 [facility] 01/28 06:23 Order name: EKG - Nurse/Tech; Complete Time: 07:41 01/28 06:23 Order name: IV Saline Lock; Complete Time: 07:41 01/28 06:23 Order name: Labs collected and sent; Complete Time: 07:41 [facility] 01/28 06:23 Order name: O2 Per Protocol; Complete Time: 07:06 [facility] 01/28 06:23 Order name: O2 Sat Monitoring; Complete Time: 07:06 [facility] Administered Medications: 06:49 Drug: Levalbuterol Inhalation 3.75 mg Inhalation once Route: Inhalation; rg5 06:49 Drug: Ipratropium Inhalation Aerosol 0.5 mg Inhalation once Route: Inhalation; rg5 08:02 Drug: NS 0.9% IV 500 ml 500 ml IV at 1 bolus once; to be given as a bolus over 30 ld1 minutes Volume: 500 ml; Route: IV; Rate: 1 bolus; Site: left antecubital; 08:02 Drug: NS 0.9% IV 500 ml 500 ml IV at 125 ml/hr once Volume: 500 ml; Route: IV; Rate: ld1 125 ml/hr; Site: left antecubital; 08:02 Drug: Rocephin IV 2 grams IV at per protocol once; Given slow IV push per pharmarcy ld1 instructions Route: IV; Rate: per protocol; Site: left antecubital; 08:02 Drug: Zithromax IVPB 500 mg IVPB once over 1 hrs; mix in 250 mL NS Route: IVPB; Infused ld1 Over: 1 hrs; Site: left antecubital; 08:02 Drug: MethylPrednisoLONE IVP 125 mg IVP once Route: IVP; Site: left antecubital; ld1 Disposition Summary: 01/28/25 06:51 Hospitalization Ordered Notes: Hospitalization Status: Inpatient Admission ebenezer Condition: Fair ebenezer Problem: an acute exacerbation ebenezer Symptoms: have improved ebenezer Bed/Room Type: Standard ebenezer Provider: Jeremias Cadena(01/28/25 06:52) ebenezer Location: Telemetry/MedSurg (Inpatient)(01/28/25 18:34) Room Assignment: [facility](01/28/25 18:34) hb Diagnosis - COPD/ Chronic obstructive pulmonary disease with (acute) exacerbation ebenezer - Obesity, unspecified ebenezer - Dyspnea ebenezer - Hypoxemia ebenezer Forms: - Medication Reconciliation Form ebenezer - SBAR form ebenezer - Leadership Thank You Letter ebenezer Signatures: Dispatcher [employer] EDMS Dominguez Voss MD MD cha Nieto, Roman, MD MD rn Blanchard, Shelby, RN RN ss Baxter, Heather, RN RN hb Able, Lacie, RN RN lg3 Winter Rhoades RN RN ld1 Marco Rice RN RN rg5 Corrections: (The following items were deleted from the chart) 06:23 06:23 BASIC METABOLIC PANEL+C.LAB.BRZ ordered. EDMS EDMS 06:23 06:23 CBC+H.LAB.BRZ ordered. EDMS EDMS 06:23 06:23 HEPATIC FUNCTION+C.LAB.BRZ ordered. EDMS EDMS 06:23 06:23 MAGNESIUM+C.LAB.BRZ ordered. EDMS EDMS 06:23 06:23 PROBNP+C.LAB.BRZ ordered. EDMS EDMS 06:23 06:23 PROTIME (+INR)+COAG.LAB.BRZ ordered. EDMS EDMS 06:23 06:23 Troponin High Sensitivity+C.LAB.BRZ ordered. EDMS EDMS 06:23 06:23 BLOOD CULTURE*+BA.LAB.BRZ ordered. EDMS EDMS 06:23 06:23 LACTATE+C.LAB.BRZ ordered. EDMS EDMS 06:23 06:23 COVID-19 Ag + Flu A+B Ag+I.LAB.BRZ ordered. EDMS EDMS 06:23 06:23 Chest Single View+RAD.RAD.BRZ ordered. EDMS EDMS 06:52 06:51 Jose Martin Santillan ebenezer eebnezer 13:59 06:51 Telemetry/MedSurg (Inpatient) ebenezer ss 13:59 06:51 ebeenzer ss 18:34 13:59 [facility] ER HOLD ss hb 18:34 13:59 ERHOLD- ss hb
--- NOTE | 2025-01-28 06:52 | ER ---
Nurse's Notes [facility] Name: Maria De Jesus Acosta Age: 59 yrs Sex: Female : 1965 Arrival Date: 01/28/2025 Time: 05:59 Bed 18 Private MD: Diagnosis: COPD/ Chronic obstructive pulmonary disease with (acute) exacerbation;Obesity, unspecified;Dyspnea;Hypoxemia Presentation: 01/28 06:19 Chief complaint: Patient states: reports wheezing and shortness of breath. Coronavirus lg3 screen: Client denies travel out of the [place] in the last 14 days. At this time, the client does not indicate any symptoms associated with coronavirus-19. Ebola Screen: Patient negative for fever greater than or equal to 101.5 degrees Fahrenheit, and additional compatible Ebola Virus Disease symptoms Patient denies exposure to infectious person. Patient denies travel to an Ebola-affected area in the 21 days before illness onset. No symptoms or risks identified at this time. Resp Distress? Mild respiratory distress is noted. Initial Sepsis Screen: Does the patient meet any 2 criteria? No. Patient's initial sepsis screen is negative. Does the patient have a suspected source of infection? No. Patient's initial sepsis screen is negative. Risk Assessment: Do you want to hurt yourself or someone else? Patient reports no desire to harm self or others. 06:19 Method Of Arrival: Wheelchair lg3 06:19 Acuity: EMERALD 3 lg3 Triage Assessment: 06:23 General: Appears in no apparent distress. uncomfortable, Behavior is calm, cooperative, lg3 appropriate for age. Pain: Complains of pain in back Pain does not radiate. Pain currently is 6 out of 10 on a pain scale. Respiratory: Breath sounds with wheezes bilaterally. Historical: - Allergies: 06:23 metoclopramide HCl; lg3 06:23 Doxycycline; lg3 06:23 Reglan; lg3 06:23 kiwi; lg3 06:23 orange juice; lg3 06:23 Amoxicillin; lg3 - PMHx: 06:23 Asthma; CHF; COPD; Crohn's; Diabetes - NIDDM; Hypertension; Nasal cancer; lg3 - Immunization history:: Adult Immunizations up to date. - Infectious Disease History:: Denies. - Social history:: Smoking status: Patient denies any tobacco usage or history of. - Family history:: not pertinent. Screenin:04 [facility] ED Fall Risk Assessment (Adult) History of falling in the last 3 months, ld1 including since admission No falls in past 3 months (0 pts) Confusion or Disorientation No (0 pts) Intoxicated or Sedated No (0 pts) Impaired Gait Yes (1 pt) Mobility Assist Device Used Yes (1 pt) Altered Elimination No (0 pt) Score/Fall Risk Level 0 - 2 = Low Risk Oriented to surroundings, Hourly rounding (assess needs \T\ fall precautionary measures) done. Abuse screen: Denies threats or abuse. Denies injuries from another. Nutritional screening: No deficits noted. Tuberculosis screening: No symptoms or risk factors identified. Assessment: 07:30 General: Appears in no apparent distress. comfortable, Behavior is calm, cooperative, ld1 appropriate for age. Pain: Denies pain. Neuro: Level of Consciousness is awake, alert, obeys commands, Oriented to person, place, time, situation. 07:30 Cardiovascular: Capillary refill < 3 seconds Patient's skin is warm and dry. Rhythm is ld1 sinus rhythm. Respiratory: Reports shortness of breath at rest on exertion cough that is non-productive, Airway is patent Respiratory effort is even, labored, Breath sounds with wheezes bilaterally. GI: Abdomen is round non-distended, obese. : No signs and/or symptoms were reported regarding the genitourinary system. EENT: No signs and/or symptoms were reported regarding the EENT system. Derm: No signs and/or symptoms reported regarding the dermatologic system. Musculoskeletal: No signs and/or symptoms reported regarding the musculoskeletal system. 08:27 Reassessment: Pt attempted to ambulate to bathroom - urinated all over self and ground. ld1 Cleaned of incontinence - placed back in bed with purewick applied to patient. 10:00 Reassessment: Patient appears in no apparent distress at this time. No changes from ld1 previously documented assessment. Patient and/or family updated on plan of care and expected duration. Pain level reassessed. Vital Signs: 06:19 BP 131 / 79; Resp 18; Temp 97.1; Pulse Ox 92% ; Weight 114.31 kg; Height 5 ft. 3 in. ; lg3 Pain 6/10; 06:45 BP 134 / 85; Pulse 65; Resp 18; Pulse Ox 92% on R/A; Pain 0/10; rg5 07:30 BP 134 / 90; Pulse 66; Resp 22; Pulse Ox 93% on 4 lpm NC; ld1 08:27 BP 115 / 86; Pulse 59; Resp 26; Pulse Ox 92% on 4 lpm NC; ld1 06:19 Body Mass Index 44.64 (114.31 kg, 160.02 cm) lg3 06:19 Pain Scale: Adult lg3 06:45 Pain Scale: Adult rg5 ED Course: 06:03 Patient arrived in ED. gm2 06:20 Dominguez Voss MD is Attending Physician. ebenezer 06:22 Triage completed. lg3 06:23 Arm band placed on right wrist. Patient placed in waiting room. lg3 06:50 Jose Martin Santillan MD is Hospitalizing Provider. ebenezer 06:52 Jeremias Cadena PA is Hospitalizing Provider. ebenezer 06:58 XRAY Chest (1 view) In Process Unspecified. EDMS 07:13 Winter Rhoades, JCARLOS is Primary Nurse. ld1 07:41 COVID-19 Ag + Flu A+B Ag Sent. hb 07:41 Lactate w/ 2H reflex if indic. Sent. hb 07:41 Blood Culture Adult (2) Sent. hb 08:02 COVID-19 Ag + Flu A+B Ag Sent. ld1 08:02 Inserted saline lock: 20 gauge in left antecubital area, using aseptic technique. Blood ld1 collected. Flushed with 10 mL NS. 08:04 Patient has correct armband on for positive identification. Placed in gown. Bed in low ld1 position. Call light in reach. Side rails up X2. traffic monitor specialist on. Pulse ox on. NIBP on. Door closed. Noise minimized. Warm blanket given. 08:04 No provider procedures requiring assistance completed. ld1 12:05 Patient admitted, IV remains in place. ld1 19:09 Cleaned of incontinence. ld1 19:23 Provided Education on: admission. cp4 Administered Medications: 06:49 Drug: Levalbuterol Inhalation 3.75 mg Inhalation once Route: Inhalation; rg5 06:49 Drug: Ipratropium Inhalation Aerosol 0.5 mg Inhalation once Route: Inhalation; rg5 08:02 Drug: NS 0.9% IV 500 ml 500 ml IV at 1 bolus once; to be given as a bolus over 30 ld1 minutes Volume: 500 ml; Route: IV; Rate: 1 bolus; Site: left antecubital; 08:02 Drug: NS 0.9% IV 500 ml 500 ml IV at 125 ml/hr once Volume: 500 ml; Route: IV; Rate: ld1 125 ml/hr; Site: left antecubital; 08:02 Drug: Rocephin IV 2 grams IV at per protocol once; Given slow IV push per pharmarcy ld1 instructions Route: IV; Rate: per protocol; Site: left antecubital; 08:02 Drug: Zithromax IVPB 500 mg IVPB once over 1 hrs; mix in 250 mL NS Route: IVPB; Infused ld1 Over: 1 hrs; Site: left antecubital; 08:02 Drug: MethylPrednisoLONE IVP 125 mg IVP once Route: IVP; Site: left antecubital; ld1 Medication: 12:05 VIS not applicable for this client. ld1 Outcome: 06:51 Decision to Hospitalize by Provider. ebenezer 12:05 Admitted to ER Hold. Please see [facility] for further documentation. ld1 12:05 Condition: stable 12:05 Instructed on the need for admit, 19:23 Patient left the ED. cp4 Signatures: Dispatcher [employer] EDMS Dominguez Voss MD MD cha Baxter, Heather, RN Ginna Moore RN RN lg3 Winter Rhoades RN RN ld1 Daniela Kolb cp4 Mary Jane Rose 2 Marco Rice RN RN rg5
--- NOTE | 2025-01-28 07:11 | RAD REPORT ---
EXAM: Chest Single View HISTORY: 59 years Female COUGH COMPARISON: 10/04/2024 FINDINGS: LUNGS/PLEURA: The lungs are clear. No pleural effusions or pneumothorax. No pulmonary edema. CARDIAC/MEDIASTINUM: The cardiac silhouette is within normal limits. UPPER ABDOMEN: No significant abnormality. BONES: No acute abnormality. LINES/TUBES/OTHER: N/A IMPRESSION: No evidence of acute cardiopulmonary disease.
[2025-01-28 07:41] LABS: Absolute Basophils 0.1 K/uL (0-0.5); Absolute Eosinophils 0.6 K/uL (0-0.5); Absolute Lymphocytes (CBC) 2.6 K/uL (0.7-4.9); Absolute Monocytes 0.5 K/uL (0.1-1.3); Absolute Neutrophil 4.1 K/uL (1.8-8.0); Basophils % 0.9 % (0-1.3); Eosinophils % 7.7 % (0-4.4); Hematocrit 42.8 % (36.0-45.0); Hemoglobin 14.4 g/dL (12.0-15.0); Lymphocytes % 33.2 % (15.3-44.8); MCH 31.4 pg (27.0-35.0); MCHC 33.6 g/dL (32.0-36.0); MCV 93.4 fL (80-100); MPV 8.4 fL (7.6-11.3); Monocytes % 6.8 % (3.3-12.3); Neutrophils % 51.4 % (41.7-73.7); Platelets 199 thou/uL (152-406); RBC Red Blood Cell Count 4.59 M/uL (3.86-4.86); Red Cell Distribution Width 13.1 % (12.1-15.2)
[2025-01-28] MEDS ORDERED: METHYLPREDNISOLONE 125 MG INJ ONE (07:43)
[2025-01-28] MEDS ORDERED: NA CHLORIDE 0.9% 1,000 ML ONE (07:44)
[2025-01-28] MEDS ORDERED: AZITHROMYCIN 500 MG INJ IVPB ONE (07:44)
[2025-01-28] MEDS ORDERED: NA CHLORIDE 0.9% 250 ML ONE (07:44)
[2025-01-28] MEDS ORDERED: CEFTRIAXONE 2000 MG/VIAL ONE (07:44)
[2025-01-28 07:48] LABS: PT Prothrombin Time 12.4 SECONDS (10-13.0); Protime INR 1.09
[2025-01-28 08:02] LABS: ALT/SGPT 24 U/L (13-56); AST/SGOT 13 U/L (15-37); Albumin 3.5 g/dL (3.4-5.0); Albumin/Globulin Ratio 0.9 (1.1-1.8); Alkaline Phosphatase 143 U/L (45-117); Anion Gap 8.1 mEq/L (5.0-15.0); BUN Blood Urea Nitrogen 12 mg/dL (7-18); Bicarbonate 32 mEq/L (21-32); Bilirubin Total 0.4 mg/dL (0.2-1.0); Globulin 3.7 g/dL (2.3-3.5); Glomerular Filtration Rate 78 ml/min (=/>90); Glucose Level 179 mg/dL (74-106); Magnesium 1.8 mg/dL (1.6-2.4); NT PRO-BNP 60 pg/mL (<125); Potassium 4.1 mEq/L (3.5-5.1); Protein, Total 7.2 g/dL (6.4-8.2); Sodium Level 136 mEq/L (136-145)
[2025-01-28 08:10] LABS: Bilirubin Direct < 0.2 mg/dL (0-0.2); Bilirubin Indirect, Calculated 0.2 mg/dL (0.2-0.8)
[2025-01-28 08:24] LABS: Influenza A Ag Negative; Influenza B Ag Negative; SARS-CoV-2 Antigen Rapid Res Negative (Negative)
[2025-01-28] MEDS ORDERED: ONDANSETRON 4 MG/2 ML VIAL IV PRN (11:32)
[2025-01-28 12:26] VITALS: BMI 43.1
[2025-01-28] MEDS ORDERED: LORazepam 2 MG/ML VIAL ONE (13:31)
--- NOTE | 2025-01-28 15:12 | P.HP ---
Certification for Inpatient Patient admitted to: Inpatient With expected LOS: >2 Midnights Patient will require the following post-hospital care: None Practitioner: I am a practitioner with admitting privileges, knowledge of patient current condition, hospital course, and medical plan of care. Services: Services provided to patient in accordance with Admission requirements found in Title 42 Section 412.3 of the Code of Federal Regulations Patient History Date of Service: 01/28/25 Reason for admission: COPD exacerbation History of Present Illness: 59-year-old female with history of asthma/COPD on home O2 at 3 L, hypertension, hyperlipidemia, previous CVA, insulin-dependent diabetes presents to the emergency department for difficulty breathing. She was evaluated in the emergency department and her labs were unremarkable, chest x-ray was negative for acute findings. Patient with significant expiratory wheezing states she has been out of her Trelegy for about a month now as well as her Humulin insulin. She will be admitted for further management of COPD exacerbation. Allergies doxycycline Allergy (Mild, Verified 06/13/24 09:11) Nausea/Vomiting orange juice [[place] Juice] Allergy (Mild, Verified 06/13/24 09:11) Nausea/Vomiting kiwi Allergy (Verified 06/13/24 09:11) Anaphylaxis metoclopramide HCl [From Reglan] Allergy (Verified 06/13/24 09:11) Unknown Home Medications: ALPRAZolam [Xanax*] 2 mg PO DAILY 6PM 10/04/19 Albuterol Sulfate [Proair Hfa] 1 puff IH Q4HP PRN 10/04/19 Atorvastatin Calcium [Lipitor] 40 mg PO BEDTIME 10/04/19 Colchicine [Colcrys *] 0.6 mg PO DAILY PRN 10/04/19 Gabapentin 600 mg PO TID 10/04/19 Hydrocodone 5/APAP 325 [[place] 5/325*] 1 tab PO Q6H PRN 10/04/19 Pantoprazole [Protonix Tab*] 40 mg PO DAILY 10/04/19 Zolpidem Tartrate [Ambien*] 10 mg PO BEDTIME 10/04/19 Dicyclomine [Bentyl*] 10 mg PO Q8H 09/03/22 Prucalopride Succinate [Motegrity] 2 mg PO BID 09/03/22 cloNIDine HCL [Catapres*] 0.1 mg PO TID #90 tab 09/05/22 Amlodipine [Norvasc*] 5 mg PO DAILY 03/27/24 Hydralazine [Apresoline*] 100 mg PO TID 03/27/24 Metoprolol Succinate [Toprol Xl*] 100 mg PO BID 03/27/24 Nitroglycerin 0.4 mg SL Q5MX3, Q15MX1, Q30M PRN 03/27/24 Spironolactone 25 mg PO DAILY 03/27/24 hydroCHLOROthiazide [Hydrochlorothiazide] 12.5 mg PO DAILY 03/27/24 lisinopriL [Lisinopril] 40 mg PO DAILY 03/27/24 Albuterol Neb [Proventil 0.083% Neb Soln] 2.5 mg NEB Q6HP PRN 30 Days #1 box 03/29/24 Benzonatate [Tessalon Perle] 100 mg PO TID PRN 10 Days #60 cap 03/29/24 Fluticasone/Umeclidin/Vilanter [Trelegy Ellipta 100-62.5-25] 1 puff IH DAILY 30 Days #1 inh 03/29/24 Ipratropium Neb [Atrovent*] 0.5 mg NEB [id number] PRN 30 Days #1 box 03/29/24 Nebulizer and Compressor [[place] Choice Nebulizer] 1 each MC DAILY PRN #1 ea 03/29/24 Quetiapine [Seroquel*] 25 mg PO BEDTIME tab 03/29/24 Insulin Lispro [Humalog*] See Protocol SQ AC 06/09/24 - Past Medical/Surgical History Has patient received pneumonia vaccine in the past: Yes Diabetic: Yes -: Crohn's disease -: CHF -: HTN -: COPD -: Asthma -: CVA -: DM- Insulin Dependent -: TIA -: sleep apnea -: Gastroparesis -: Appendectomy -: Cholecystectomy -: -: Tubal Ligation -: Lap. 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 - Family History Mother -: Heart disease, Hypertension, Diabetes, Stroke, Cancer Father -: Diabetes, Blood disorders, Kidney disease Notes: leukemia - Social History Smoking Status: Never smoker Alcohol use: No CD- Drugs: No Caffeine use: Yes Review of Systems 10-point ROS is otherwise unremarkable Respiratory: Cough, Shortness of Breath, Wheezing Physical Examination - Vital Signs Blood Pressure: 144/117 Pulse: 72 Respirations: 18 Pulse Ox (%): 92 - Physical Exam General: Alert, In no apparent distress, Oriented x3 HEENT: Atraumatic, PERRLA, EOMI Neck: Supple, 2+ carotid pulse no bruit, No LAD Respiratory: Diminished, Expiratory wheezes Cardiovascular: Regular rate/rhythm, Normal S1 S2 Gastrointestinal: Normal bowel sounds, No tenderness Musculoskeletal: No tenderness Integumentary: No rashes Neurological: Normal gait, Normal speech, Normal strength at 5/5 x4 extr, Normal tone, Normal affect Lymphatics: No axilla or inguinal lymphadenopathy - Studies Laboratory Data (last 24 hrs) 01/28/25 01/28/25 01/28/25 07:28 07:28 07:28 WBC 7.90 Hgb 14.4 Hct 42.8 Plt Count 199 PT 12.4 INR 1.09 Sodium 136 Potassium 4.1 BUN 12 Creatinine 0.87 Glucose 179 H Magnesium 1.8 Total Bilirubin 0.4 AST 13 L ALT 24 Alkaline Phosphatase 143 H Assessment and Plan - Plan Assessment: COPD exacerbation Acute on chronic hypoxic respiratory failure Diabetes mellitus type 2insulin-dependent Hypertension Hyperlipidemia Anxiety Plan: COPD exacerbation Acute on chronic hypoxic respiratory failure Continue steroids, as needed nebulizer treatments Ran out of Trelegy around 1 month ago will need prescription at discharge Continue with Dulera during hospitalization Pulmonology consult Supplemental oxygen as needed Diabetes mellitus type 2insulin-dependent ACHS Accu-Chek, sliding scale insulin Requesting Rx for her insulin at discharge Hypertension Hyperlipidemia Anxiety Continue home medications when verified DVT PPX: Lovenox Code status: Full code Discharge Plan: Home Plan to discharge in: 48 Hours - Advance Directives Does patient have a Living Will: No Does patient have a Durable POA for Healthcare: No - Code Status/Comfort Care Code Status Assessed: Yes (Full code) Critical Care: No Time Spent Managing Pts Care (In Minutes): 61
[2025-01-28] MEDS: INSULIN REGULAR (HUMAN) 100 UNIT/ML SQ SCH (20:00)
[2025-01-28] MEDS: predniSONE 20 MG TAB PO SCH (20:00)
[2025-01-28] MEDS: ZOLPIDEM TARTRATE 10 MG TABLET PO PRN (21:13)
[2025-01-29 06:28] LABS: Absolute Lymphocytes (CBC) 1.9 K/uL (0.7-4.9); Absolute Monocytes 0.5 K/uL (0.1-1.3); Absolute Neutrophil 9.7 K/uL (1.8-8.0); Basophils % 0.4 % (0-1.3); Hematocrit 45.5 % (36.0-45.0); Hemoglobin 15.2 g/dL (12.0-15.0); Lymphocytes % 15.3 % (15.3-44.8); MCH 31.3 pg (27.0-35.0); MCHC 33.3 g/dL (32.0-36.0); MCV 94.2 fL (80-100); MPV 8.5 fL (7.6-11.3); Monocytes % 4.3 % (3.3-12.3); Nucleated Red Blood Cells % 0.2 % (0-0); Platelets 227 thou/uL (152-406); RBC Red Blood Cell Count 4.84 M/uL (3.86-4.86); Red Cell Distribution Width 13.6 % (12.1-15.2)
[2025-01-29 06:40] LABS: Albumin 3.8 g/dL (3.4-5.0); Anion Gap 9.6 mEq/L (5.0-15.0); Bilirubin Total 0.4 mg/dL (0.2-1.0); Potassium 3.6 mEq/L (3.5-5.1); Protein, Total 7.8 g/dL (6.4-8.2)
[2025-01-29] MEDS: POTASSIUM CL SA 10 MEQ TAB PO ONE (08:23)
[2025-01-29] MEDS: ENOXAPARIN 40 MG/0.4 ML SQ SCH (08:23)
--- NOTE | 2025-01-29 11:19 | EKG ---
Test Date: 2025-01-28 Test Time: 06:38:46 Business Process Specialist: Pili SI MEASUREMENT RESULTS: Intervals: Rate: 57 GA: 170 QRSD: 68 QT: 442 QTc: 430 [place]: P: 9 GA: 170 QRS: 35 T: 63 INTERPRETIVE STATEMENTS: Sinus bradycardia Cannot rule out Anterior infarct, age undetermined Abnormal ECG Compared to ECG 10/04/2024 15:12:53 Sinus rhythm no longer present Myocardial infarct finding still present Electronically Signed On 01-29-25 11:17:44 CDT by Abiodun Augustin
[2025-01-29] MEDS: BENZONATATE 100 MG CAP PO PRN (11:51)
--- NOTE | 2025-01-29 12:31 | P.CNS ---
Date of Consult: 01/29/25 Reason for Consult: COPD exacerbation Chief Complaint: COPD exacerbation History of Present Illness: Patient is 59 years of age well-known to me with a history of COPD sleep apnea has been sick for about 2 weeks has been coughing this of breath fever chills e nded up here in the hospital is compliant with her inhalers she takes trilogy at home is also using her CPAP Allergies doxycycline Allergy (Mild, Verified 06/13/24 09:11) Nausea/Vomiting orange juice [[place] Juice] Allergy (Mild, Verified 06/13/24 09:11) Nausea/Vomiting kiwi Allergy (Verified 06/13/24 09:11) Anaphylaxis metoclopramide HCl [From Reglan] Allergy (Verified 06/13/24 09:11) Unknown Home Medications: ALPRAZolam [Xanax*] 2 mg PO TID 10/04/19 Albuterol Sulfate [Proair Hfa] 1 puff IH Q4HP PRN 10/04/19 Atorvastatin Calcium [Lipitor] 40 mg PO BEDTIME 10/04/19 Colchicine [Colcrys *] 0.6 mg PO DAILY PRN 10/04/19 Gabapentin 600 mg PO TID 10/04/19 Hydrocodone 5/APAP 325 [[place] 5/325*] 1 tab PO Q6H PRN 10/04/19 Pantoprazole [Protonix Tab*] 40 mg PO DAILY 10/04/19 Zolpidem Tartrate [Ambien*] 10 mg PO BEDTIME 10/04/19 Dicyclomine [Bentyl*] 10 mg PO Q8H 09/03/22 Prucalopride Succinate [Motegrity] 2 mg PO BID 09/03/22 cloNIDine HCL [Catapres*] 0.1 mg PO TID #90 tab 09/05/22 Amlodipine [Norvasc*] 5 mg PO DAILY 03/27/24 Hydralazine [Apresoline*] 100 mg PO TID 03/27/24 Metoprolol Succinate [Toprol Xl*] 100 mg PO BID 03/27/24 Nitroglycerin 0.4 mg SL Q5MX3, Q15MX1, Q30M PRN 03/27/24 hydroCHLOROthiazide [Hydrochlorothiazide] 12.5 mg PO DAILY 03/27/24 lisinopriL [Lisinopril] 40 mg PO DAILY 03/27/24 Albuterol Neb [Proventil 0.083% Neb Soln] 2.5 mg NEB Q6HP PRN 30 Days #1 box 03/29/24 Fluticasone/Umeclidin/Vilanter [Trelegy Ellipta 100-62.5-25] 1 puff IH DAILY 30 Days #1 inh 03/29/24 Ipratropium Neb [Atrovent*] 0.5 mg NEB [id number] PRN 30 Days #1 box 03/29/24 Nebulizer and Compressor [[place] Choice Nebulizer] 1 each MC DAILY PRN #1 ea 03/29/24 Insulin Lispro [Humalog*] See Protocol SQ AC 06/09/24 - Past Medical/Surgical History Diabetic: Yes -: Crohn's disease -: CHF -: HTN -: COPD -: Asthma -: CVA -: DM- Insulin Dependent -: TIA -: sleep apnea -: Gastroparesis -: Appendectomy -: Cholecystectomy -: -: Tubal Ligation -: Lap. 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 - Family History Mother Medical History: Heart disease, Hypertension, Diabetes, Stroke, Cancer Father Medical History: Diabetes, Blood disorders, Kidney disease Notes: leukemia - Social History Smoking Status: Unknown if ever smoked Alcohol use: No CD- Drugs: No Caffeine use: Yes Review of Systems 10-point ROS is otherwise unremarkable General: Weakness Respiratory: Cough, Shortness of Breath Physical Examination Temp Pulse Resp BP Pulse Ox 98.1 F 60 16 122/61 94 01/29/25 12:00 01/29/25 12:00 01/29/25 12:00 01/29/25 12:00 01/29/25 12:00 General: Alert, Oriented x3 Respiratory: Expiratory wheezes Cardiovascular: No edema, Regular rate/rhythm, Normal S1 S2 Gastrointestinal: Soft and benign Musculoskeletal: No clubbing, No swelling - Problems (1) COPD exacerbation Onset Date: 11/03/16 Current Visit: No Status: Acute Plan: Patient is 59 years of age admitted with COPD exacerbation has been sick for about 2 weeks chemistries unremarkable on admission normal white count chest x- ray is clear is hypoxic has home O2 continue with prednisone add Augmentin signs stable Brovana possible discharge tomorrow Augmentin Trelegy and low-dose prednisone
[2025-01-29] MEDS: ARFORMOTEROL TARTRATE 15 MCG/2 ML VIAL.NEB NEB SCH (12:35)
[2025-01-29] MEDS: AMOX/K CLAV 875 MG TAB PO SCH (13:11)
[2025-01-29] MEDS: ALPRAZOLAM 0.5 MG TABLET PO PRN (13:11)
--- NOTE | 2025-01-29 13:38 | P.PN ---
Date of Service: 01/29/25 Subjective: Still with dyspnea, wheezing No acute events overnight ROS: 10 point ROS as noted above, otherwise negative Physical exam GEN: Alert, oriented, NAD HEENT: Normal conjunctiva, sclera anicteric CV: Regular rate and rhythm, no edema Pulm: Nonlabored respirations on nasal cannula oxygen, expiratory wheezing noted ABD: Soft, nontender, nondistended MSK: No joint tenderness Integumentary: No rashes Neuro: Normal speech, normal affect Vitals reviewed Assessment: COPD exacerbation Acute on chronic hypoxic respiratory failure Diabetes mellitus type 2insulin-dependent Hypertension Hyperlipidemia Anxiety Plan: COPD exacerbation Acute on chronic hypoxic respiratory failure Continue steroids, as needed nebulizer treatments Ran out of Trelegy around 1 month ago will need prescription at discharge Continue with Dulera during hospitalization Pulmonology consult-recommends adding Augmentin, Brovana which has been started Supplemental oxygen as needed Diabetes mellitus type 2insulin-dependent ACHS Accu-Chek, sliding scale insulin Requesting Rx for her insulin at discharge Hypertension Hyperlipidemia Anxiety Continue home medications when verified DVT PPX: Lovenox Code status: Full code Discharge Plan: Home Plan to discharge in: 24 to 48 hours Time Spent Managing Pts Care (In Minutes): 35
[2025-01-29] MEDS: IPRATROPIUM BROM 0.5MG/2.5ML NEB PRN (22:53)
[2025-01-29] MEDS: ALBUTEROL 2.5 MG/3 ML NEB SOL NEB PRN (22:53)
[2025-01-30 07:02] LABS: Absolute Basophils 0.1 K/uL (0-0.5); Absolute Lymphocytes (CBC) 2.8 K/uL (0.7-4.9); Absolute Monocytes 0.8 K/uL (0.1-1.3); Absolute Neutrophil 8.3 K/uL (1.8-8.0); Basophils % 0.6 % (0-1.3); Eosinophils % 0.1 % (0-4.4); Hematocrit 47.5 % (36.0-45.0); Hemoglobin 15.6 g/dL (12.0-15.0); Lymphocytes % 23.4 % (15.3-44.8); MCH 30.8 pg (27.0-35.0); MCHC 32.8 g/dL (32.0-36.0); MCV 93.9 fL (80-100); MPV 8.2 fL (7.6-11.3); Monocytes % 6.7 % (3.3-12.3); Neutrophils % 69.2 % (41.7-73.7); Nucleated Red Blood Cells % 0.1 % (0-0); Platelets 212 thou/uL (152-406); RBC Red Blood Cell Count 5.06 M/uL (3.86-4.86); Red Cell Distribution Width 13.5 % (12.1-15.2)
[2025-01-30 07:25] LABS: Albumin 3.8 g/dL (3.4-5.0); Albumin/Globulin Ratio 0.9 (1.1-1.8); Anion Gap 9.4 mEq/L (5.0-15.0); Bilirubin Total 0.4 mg/dL (0.2-1.0); Globulin 4.1 g/dL (2.3-3.5); Protein, Total 7.9 g/dL (6.4-8.2)
[2025-01-30 07:26] LABS: Potassium 4.4 mEq/L (3.5-5.1)
[2025-01-30 08:17] VITALS: BP 122/69; TEMP 99.1
[2025-01-30 11:34] VITALS: O2SAT 97
--- NOTE | 2025-01-30 14:06 | P.DS ---
Admission Date: 01/28/25 Discharge Date: 01/30/25 Disposition: ROUTINE DISCHARGE Discharge Condition: GOOD Reason for Admission: COPD exacerbation Brief History of Present Illness: Diagnosis COPD exacerbation Acute on chronic hypoxic respiratory failure Diabetes mellitus type 2insulin-dependent Hypertension Hyperlipidemia Anxiety HPI 01/28/2025 59-year-old female with history of asthma/COPD on home O2 at 3 L, hypertension, hyperlipidemia, previous CVA, insulin-dependent diabetes presents to the emergency department for difficulty breathing. She was evaluated in the emergency department and her labs were unremarkable, chest x-ray was negative for acute findings. Patient with significant expiratory wheezing states she has been out of her Trelegy for about a month now as well as her Humulin insulin. She will be admitted for further management of COPD exacerbation. Hospital Course: Maria De Jesus was admitted and treated for the following diagnosis. COPD exacerbation Acute on chronic hypoxic respiratory failure Diabetes mellitus type 2insulin-dependent Hypertension Hyperlipidemia Anxiety Patient reports running out of Trelegy around 1 month ago which has complicated this COPD exacerbation and it has been prescribed Tolerated and improved with steriods and duo-nebs Tolerated Dulera during this admission Pulmonology cleared for discharge with recommendation to include Augmentin, Brovana, and prednisone. home level of Supplemental oxygen during this admission ACHS Accu-Chek, sliding scale insulin Requesting Rx for her insulin at discharge Continued home medications when verified On 01/30/25, Maria De Jesus was seen on morning rounds and deems hemodynamically stable, Dr. Waddell has evaluated and has cleared her for discharge with prednisone, augmentin, brovana, and home medication trelegy. She is capable of ambulating to the nurses station on home oxygen level. Physical exam GEN: Awake, Alert, and oriented x4, NAD CV: RRR, S1 S2 present Pulm: Nonlabored respirations on nasal cannula oxygen, expiratory wheezing noted ABD: Soft and nontender on palpation MSK: No joint tenderness, 2 + peripheral pulses Integumentary: No rashes Neuro: Normal speech, normal affect Vital Signs/Physical Exam: Temp Pulse Resp BP Pulse Ox 99.1 F 76 16 122/69 97 01/30/25 08:00 01/30/25 08:00 01/30/25 08:00 01/30/25 08:00 01/30/25 08:00 Laboratory Data at Discharge: WBC 11.90 thou/uL (4.3-10.9) H 01/30/25 06:52 Hgb 15.6 g/dL (12.0-15.0) H 01/30/25 06:52 Hct 47.5 % (36.0-45.0) H 01/30/25 06:52 Plt Count 212 thou/uL (152-406) 01/30/25 06:52 PT 12.4 SECONDS (10-13.0) 01/28/25 07:28 INR 1.09 01/28/25 07:28 Sodium 137 mEq/L (136-145) 01/30/25 06:52 Potassium 4.4 mEq/L (3.5-5.1) D 01/30/25 06:52 BUN 13 mg/dL (7-18) 01/30/25 06:52 Creatinine 0.93 mg/dL (0.55-1.02) 01/30/25 06:52 Glucose 211 mg/dL (74-106) H 01/30/25 06:52 Magnesium 1.8 mg/dL (1.6-2.4) 01/28/25 07:28 Total Bilirubin 0.4 mg/dL (0.2-1.0) 01/30/25 06:52 AST 20 U/L (15-37) 01/30/25 06:52 ALT 35 U/L (13-56) 01/30/25 06:52 Alkaline Phosphatase 140 U/L (45-117) H 01/30/25 06:52 Home Medications: ALPRAZolam [Xanax*] 2 mg PO TID 10/04/19 Albuterol Sulfate [Proair Hfa] 1 puff IH Q4HP PRN 10/04/19 Atorvastatin Calcium [Lipitor] 40 mg PO BEDTIME 10/04/19 Colchicine [Colcrys *] 0.6 mg PO DAILY PRN 10/04/19 Gabapentin 600 mg PO TID 10/04/19 Hydrocodone 5/APAP 325 [[place] 5/325*] 1 tab PO Q6H PRN 10/04/19 Pantoprazole [Protonix Tab*] 40 mg PO DAILY 10/04/19 Zolpidem Tartrate [Ambien*] 10 mg PO BEDTIME 10/04/19 Dicyclomine [Bentyl*] 10 mg PO Q8H 09/03/22 Prucalopride Succinate [Motegrity] 2 mg PO BID 09/03/22 cloNIDine HCL [Catapres*] 0.1 mg PO TID #90 tab 09/05/22 Amlodipine [Norvasc*] 5 mg PO DAILY 03/27/24 Hydralazine [Apresoline*] 100 mg PO TID 03/27/24 Metoprolol Succinate [Toprol Xl*] 100 mg PO BID 03/27/24 Nitroglycerin 0.4 mg SL Q5MX3, Q15MX1, Q30M PRN 03/27/24 hydroCHLOROthiazide [Hydrochlorothiazide] 12.5 mg PO DAILY 03/27/24 lisinopriL [Lisinopril] 40 mg PO DAILY 03/27/24 Albuterol Neb [Proventil 0.083% Neb Soln] 2.5 mg NEB Q6HP PRN 30 Days #1 box 03/29/24 Fluticasone/Umeclidin/Vilanter [Trelegy Ellipta 100-62.5-25] 1 puff IH DAILY 30 Days #1 inh 03/29/24 Ipratropium Neb [Atrovent*] 0.5 mg NEB [id number] PRN 30 Days #1 box 03/29/24 Nebulizer and Compressor [[place] Choice Nebulizer] 1 each MC DAILY PRN #1 ea 03/29/24 Insulin Lispro [Humalog*] See Protocol SQ AC 06/09/24 Amox/Clavulanate [Augmentin 875-125 Tab*] 875 mg PO BID 7 Days #14 tab 01/30/25 Arformoterol Tartrate [Brovana] 15 mcg NEB BIDRESP 30 Days #1 vial.neb 01/30/25 Benzonatate [Tessalon Perle*] 100 mg PO TID PRN 5 Days #15 cap 01/30/25 predniSONE [Prednisone*] 20 mg PO BID 7 Days #14 tab 01/30/25 predniSONE [Prednisone] 10 mg PO DAILY 3 Days #3 tab 01/30/25 New Medications: Amox/Clavulanate [Augmentin 875-125 Tab*] 875 mg PO BID 7 Days #14 tab Arformoterol Tartrate [Brovana] 15 mcg NEB BIDRESP 30 Days #1 vial.neb predniSONE [Prednisone] 10 mg PO DAILY 3 Days #3 tab predniSONE [Prednisone*] 20 mg PO BID 7 Days #14 tab Benzonatate [Tessalon Perle*] 100 mg PO TID PRN 5 Days #15 cap PRN Reason: Cough Physician Discharge Instructions: 1. Please call and schedule a follow-up appointment with your PCP in 3-5 days - Please follow-up with your PCP for medication refills/adjustments 2. Please call and schedule a follow-up appointment with Dr. Waddell in 3-5 days 3. Continue diabetic diet 4. activity restrictions 5. Return to the ED if symptoms worsen New medications Brovana 1 puff twice daily Prednisone 20 mg twice daily x 7 days, then prednisone 10 mg daily x 3 days- steroids will make your blood sugar elevate Tessalon Perles 100 mg 3 times daily x 5 days Augmentin 875 mg twice daily x 7 days Diet: ADA Activity: Ad teri Followup: Vignesh Waddell MD [ACTIVE - CAN ADMIT] - 1-2 Weeks Trent Irving DO, DO [Primary Care Provider] - 1-2 Weeks
== END 2025-01-30 11:30 | disposition home or self-care (01) | DRG 190 ==
LOC: ER 05:59 → ERHOLD 11:31 → 4TH 19:01
PROVIDERS: ADMIT Hospitalist; ATTEND Internal Medicine
DX: J44.1 Chronic obstructive pulmonary disease with (acute) exacerbation (principal); J96.21 Acute and chronic respiratory failure with hypoxia; K50.90 Crohn's disease, unspecified, without complications; I11.0 Hypertensive heart disease with heart failure; I50.9 Heart failure, unspecified; E11.43 Type 2 diabetes mellitus with diabetic autonomic (poly)neuropathy; E78.5 Hyperlipidemia, unspecified; F41.9 Anxiety disorder, unspecified; K31.84 Gastroparesis; T49.6X6A Underdosing of otorhinolaryngological drugs and preparations, initial encounter; T38.3X6A Underdosing of insulin and oral hypoglycemic [antidiabetic] drugs, initial encounter; Z79.4 Long term (current) use of insulin; Z99.81 Dependence on supplemental oxygen; Z86.73 Personal history of transient ischemic attack (TIA), and cerebral infarction without residual deficits; Z91.148 Patient's other noncompliance with medication regimen for other reason; Z11.52 Encounter for screening for COVID-19
CPT/HCPCS: 36415; 71045; 80048; 80053; 80076; 82947; 83605; 83735; 83880; 84484; 85025; 85610; 87040; 87428; 93005; 94640; 96374; 96375; 99285; J0696; J1650; J1815; J2919; J7030; J7050; J7512; J7605; J7613; J7644

== ENCOUNTER 2025-02-25 14:49 | Inpatient (IN) | payer OTHER ==
--- OUTSIDE RECORDS SUMMARY | 2025-02-25 14:54 | XMS REPORT | Clinical Summary ---
Author Name Unknown Organization [facility] Address [address] [place] [address] Care Team Providers Care Erp Business Analyst Name Role Phone Bina Obando MD Unavailable [phone] Kenya Agarwal MD Primary Care Provider [phone] Trent Irving MD Unavailable [phone] Randall Sheriff MD Unavailable [phone] Vignesh Waddell MD Unavailable [phone] Naa Miller MD Unavailable [phone] [facility] Unavailable [phone] Rafael Rosas MD Unavailable Unavailab Suzanne Mason MD Unavailable [phone] Winter Luu MD Unavailable [phone] Vaibhav Rosario MD Unavailable [phone] Rogerio Kramer MD Unavailable [phone] Rosana Harkins MD Unavailable No Andrade MD Unavailable [phone] Allergies Active Allergy Reactions Criticality Noted Date [...] procedure Metoclopramide Hcl Other (See Comments) 10/16/2022 [place] Juice Nausea And Vomiting,GI Intolerance Low 04/18/2021 [...] Active naloxone (Narcan) 4 mg/actuation nasal sprayIndications :ferry terminal agent current use of opiate analgesic 1 dose into one nostril as needed for opioid overdose. another dose into the other nostril after 2 minutes if the patient does not respond 2 each 023 Active Additional Information Patient not taking.Reason: No longer taking, Reported on 02/08/2024 pen needle, diabetic (Easy Comfort Pen Leland) 31 gauge x 5/16" ndleIndications: Type 2 [...] 7 days. After about 3 doses, notify photo mask processor if you are feeling well and we [...] (NITROSTAT) 0.4 mg SL tablet Transfusion VS Active DULoxetine (CYMBALTA) 60 mg capsuleIndicatio ns:Neuropathy due to diabetes mellitus TAKE 1 CAPSULE BY MOUTH EVERY DAY 90 capsule Active DULoxetine (Cymbalta) 60 mg capsuleIndicatio ns:Neuropathy due to diabetes mellitus Take 1 capsule (60 mg) by mouth daily. 90 capsule 3 023 2023 Discontinued Active Problems Problem Noted Date Diagnosed Date ferry terminal agent use of anticoagulant 03/31/2023 Acute thrombosis of [...] organization. Date Type Department Care Team Description 02/20/2025 Telephone MD [facility] [place] [facility] Rad[facility] On[facility] [address] [place] [address] Lindy Montenegro PA 02/19/2025 Orders Only MD [facility] [place] [facility] [address] [address] Lindy Montenegro PA Adenoid cystic carcinoma of nasopharynx, NOS (Primary Dx) 12/26/2024 [facility]ill [facility] [address] [place] [address], 6th [place] [address] Lisy Mcmullen APRN Neuropathy due to diabetes mellitus 09/20/2024 [facility]ill [facility] [address] [place] [address], [facility] [place] [address] No Andrade MD Neuropathy due to diabetes mellitus 09/19/2024 Orders Only MD [facility] [place] - Thoracic Medicine [address] [place] [address] Vaibhav Rosario MD 08/22/2024 Orders Only Neuroradiology [address] [place] [address] Dadyay Villavicencio MD 08/16/2024 3:30 PM CDT Nutrition Clinical Nutrition For your Nutrition appointment location directions please call: Kenya Agarwal MD Martin, Cathy A, RD 08/16/2024 Documentation Rehabilitation Services [address] [place] [address], [facility] Floor G1.3418 [place] [address] Skye Reed, PT 08/15/2024 8:45 AM CDT Follow-Up MD [facility] - Head & Neck Surgery [address] [place] [address] Kenya Agarwal MD Adenoid cystic carcinoma of nasopharynx, NOS (Primary Dx) 08/15/2024 Travel after 02/26/2024 Surgical History Surgery Date Site/Laterality Comments APPENDECTOMY [id number] COLONOSCOPY [id number] CHOLECYSTECTOMY [id number] KNEE ARTHROPLASTY Right SHOULDER SURGERY 050@2010 Left UPPER GASTROINTESTINAL ENDOSCOPY [id number] SECTION, CLASSIC 11/01/1984 - 10/31/1985 PARTIAL HYSTERECTOMY 03/01/2012 - 03/31/2012 MYRINGOTOMY WITH ASPIRATION AND INSERTION PE TUBES 11/01/2019 - 10/31/2020 SLEEVE GASTROPLASTY N/A Medical History Medical History Date Comments Hypertension [id number] Hyperlipidemia [id number] Allergic rhinitis [id number] Fatty liver 05247522 Gastric reflux 55684105 Gastric ulcer 28023179 Crohn's disease 93633158 Gout 82873593 Type 2 diabetes mellitus wit h hyperglycemia 8372510 Anxiety 56472400 Chronic obstructive pulmonary disease On home supplemental [...] Sex Assigned at Female 11/12/2022 2:07 PM [employer] Legal Sex Female 11:09 AM [employer] Gender Identity Female 11/12/2022 2:07 PM [employer] Sexual Orientation Not on file Obstetrics History Last Filed Vital Signs Vital Sign Reading Time Taken Comments Blood Pressure 107/70 08/15/2024 9:03 AM CDT Pulse 69 08/15/2024 9:03 AM CDT Temperature 36.9 °C (98.4 °F) 08/15/2024 9:03 AM CD T Respiratory Rate 18 08/15/2024 9:03 AM CDT Oxygen Saturation 98% 08/15/2024 9:03 AM CDT Inhaled Oxygen Concentration - - Weight 116.8 kg (257 lb 8 oz) 08/15/2024 9:19 AM CDT Height - - Body Mass Index 48.62 09/13/2023 10:01 AM POLISHER ALUMINUM Plan of Treatment Upcoming Encounters Date Type Department Care Team (Late st Contact Info) Description 03/01/2025 7:00 AM CDT Lab MD [place] [place] [facility] [address] [place] [address] Kenya Agarwal MD [address] [place] [id number] [email or web address] 03/01/2025 7:15 AM CDT Ancillary Procedure MD [facility] [place] [address] Kenya Agarwal MD [address] [place] [phone] [email or web address] 03/01/2025 9:15 AM CDT Ancillary Procedure MD [place] [address] [address] Kenya Agarwal MD [address] [place] [address] [email or web address] 03/01/2025 1:00 PM CDT Follow-Up MD [facility] [place] - Radiation Oncology [address] [place] [address] Winter Luu MD [address] [place] [address] [email or web address] 03/01/2025 2:00 PM CDT Nutrition Clinical Nutrition For your Nutrition appointment location directions please call: Keyna Agarwal MD [address] [place] [address] [email or web address] Leblanc, ADAM [address] [place] [address] [email or web address] Health Maintenance Due Date Last Done Comments Pneumococcal Vaccine: 50+ Ye ars (1 of 2 - PCV) 1986 COVID-19 Vaccine (2023-2 5 season) 2024 07/11/2021, 01/01/2021, 12/03/2020 Influenza Vaccine (#1) 2024 , 11/13/2020, 09/29/2013, Additional history exists Medical Devices Implanted Type Area Quartz Mounter Device Identifier Shelf Expiration Date Model / [...] Adenoid cystic carcinoma of nasopharynx, NOS after 02/26/2024 Results * Insulin-Like Growth Factor I (08/15/2024 10:19 AM CDT) IGF-1, LC/MS, S 133 37 - 208 ng/mL 08/22/2024 11:[address] [facility] CAR[facility] IGF Z-score 0.84 -2.0 - 2.0 SD 08/22/2024 11:52 AM CDT [facility] Comment: ADDITIONAL INFORMATION This test was developed and its performance characteristics determined by [facility] in a manner consistent with CLIA requirements. This test has not been cleared or approved by the U.S. Food and Drug Administration. Test Performed by: [facility] [place] [facility] [address] [place] [address] Half Section Ironer: Yordan Leonard Ph.D.; CLIA# [id number] Blood Peripheral blood specimen / Unknown Venipuncture / Unknown 08/15/2024 10:19 AM CDT 08/15/2024 10:19 AM CDT us Kenya Agarwal MD LAB BLOOD ORDERABLES Final Resu lt [facility] * ACTH (08/15/2024 10:19 AM CDT) ACTH 14 7 - 63 pg/mL 08/15/2024 10:51 AM CDT [facility] Blood Peripheral blood specimen / Unknown Venipuncture / Unknown 08/15/2024 10:19 AM CDT 08/15/2024 10:19 AM CDT [facility] - 08/15/2024 10:51 AM CDT Reference range established based on adult population (7 - 10am draws). No established reference values for p.m. draws. Results greater than 1826 pg/mL may not be reliable due to matrix effect with extended dilution as it exceeds the metallurgical laboratory assistant's recommended limit. ACTH reference intervals are established for the morning hours from 7-10 am. Due to the circadian rhythm of ACTH levels in plasma, the sample collection time must be noted. Caution should be exercised when interpreting such values and done in conjunction with clinical context. us Kenya Agarwal MD LAB BLOOD ORDERABLES Final Resu lt Performing Organization Address City/[facility]/ZIP Co de Phone Number [facility] [address] [facility], [facility] [address] [place] [address] * Prolactin (08/15/2024 10:19 AM CDT) Pathologist [facility] Prolactin Level 20.0 4.8 - 23.3 ng/mL 08/15/2024 2:45 PM CDT [facility] Blood Peripheral blood specimen / Unknown Venipuncture / Unknown 08/15/2024 10:19 AM CDT 08/15/2024 10:19 AM CDT Yan [facility] - 08/15/2024 2:45 PM CDT Results greater than 4700.0 ng/mL may not be reliable due to matrix effect with extended dilution as it exceeds the metallurgical laboratory assistant s recommended limit. Caution should be exercised when interpreting such values and done in conjunction with clinical context. us Kenya Agarwal MD LAB BLOOD ORDERABLES Final Resu lt [facility] Unless otherwise noted, all lab tests performed by: Division of Pathology and Laboratory Medicine [address] [place] [id number] * Estradiol level (08/15/2024 10:19 AM CDT) Pathologist [facility] Estradiol <11 pg/mL 08/15/2024 2:4 6 PM CDT [facility] Blood Peripheral blood specimen / Unknown Venipuncture / Unknown 08/15/2024 10:19 AM CDT 08/15/2024 10:19 AM CDT Narrative [facility] - 08/15/2024 2:46 PM CDT Estradiol [...] ORDERABLES Final Resu lt Performing Organization Address [facility]/ZIP Co de Phone Number [facility] Unless otherwise noted, all lab tests performed by: Division of Pathology and Laboratory Medicine [address] [place] [address] * T3 (08/15/2024 10:19 AM CDT) [facility] Triiodothyronine 122 80 - 200 ng/dL 08/15/2024 11:01 AM CDT [facility] Blood Peripheral blood specimen / Unknown Venipuncture / Unknown 08/15/2024 10:19 AM CDT 08/15/2024 10:19 AM CDT us Kenya Agarwal MD LAB BLOOD ORDERABLES Final Resu lt [facility] [address] [facility], [facility] [address] [place] [address] * TSH (08/15/2024 10:19 AM CDT) [facility] Thyroid Stimulating Hormone 4.15 0.27 - 4.20 mcunit/mL 08/15/2024 11:01 AM CDT [facility] Blood Peripheral blood specimen / Unknown Venipuncture / Unknown 08/15/2024 10:19 AM CDT 08/15/2024 10:19 AM CDT us Kenya Agarwal MD LAB BLOOD ORDERABLES Final Resu lt [address] [address] * Free T4 (08/15/2024 10:19 AM CDT) [facility] T4 (Thyroxine) Free 1.01 0.92 - 1.68 ng/dL 08/15/2024 11:01 AM CDT [facility] Blood Peripheral blood specimen / Unknown Venipuncture / Unknown 08/15/2024 10:19 AM CDT 08/15/2024 10:19 AM CDT us Kenya Agarwal MD LAB BLOOD ORDERABLES Final Resu lt [address] [address] * (ABNORMAL) Testosterone Level (08/15/2024 10:19 AM CDT) [facility] Testosterone Total <3(L) 3 - 41 ng/dL 08/15/2024 11:01 AM CDT [facility] Blood Peripheral blood specimen / Unknown Venipuncture / Unknown 08/15/2024 10:19 AM CDT 08/15/2024 10:19 AM CDT Narrative [facility] - 08/15/2024 11:01 AM CDT Reference Ranges: Male: Age 20 - 49 249 - 836 Age >=50 193 - 740 Female: Age 20 - 49 8 - 48 Age >=50 3 - 41 us Kenya Agarwal MD LAB BLOOD ORDERABLES Final Resu lt [facility] [address] [place] [address] [place] [address] * LH (08/15/2024 10:19 AM CDT) Luteinizing Hormone 12.5 mIU/mL 08/15/2024 2:46 PM CDT [facility] Blood Peripheral blood specimen / Unknown Venipuncture / Unknown 08/15/2024 10:19 AM CDT 08/15/2024 10:19 AM CDT Narrative [facility] - 08/15/2024 2:46 PM CDT Luteinizing Hormone Reference Ranges Female: Follicular: 2.4 - 12.6 mIU/mL Luteal: 1.0 - 11.4 mIU/mL Ovulation: 14.0 - 95.6 mIU/mL Post-menopause: 7.7 - 58.5 mIU/mL Kenya Agarwal MD LAB BLOOD ORDERABLES Final Resu lt [facility] Unless otherwise noted, all lab tests performed by: Division of Pathology and Laboratory Medicine [address] [place] [address] * FSH Level (08/15/2024 10:19 AM CDT) Follicle Stimulating Hormone 27.8 mIU/mL 08/15/2024 2:46 PM CDT [facility] Blood Peripheral blood specimen / Unknown Venipuncture / Unknown 08/15/2024 10:19 AM CDT 08/15/2024 10:19 AM CDT Narrative [facility] - 08/15/2024 2:46 PM CDT Follicle Stimulating Hormone Reference Ranges Female: Follicular: 3.5 - 12.5 mIU/mL Luteal: 1.7 - 7.7 mIU/mL Ovulation: 4.7 - 21.5 mIU/mL Post-menopause: 25.8 - 134.8 mIU/mL Kenya Agarwal MD LAB BLOOD ORDERABLES Final Resu lt [facility] Unless otherwise noted, all lab tests performed by: Division of Pathology and Laboratory Medicine [address] [place] [address] * Cortisol, Total (08/15/2024 10:19 AM CDT) Cortisol 8.17 mcg/dL 08/15/2024 11: 01 AM CDT [facility] Blood Peripheral blood specimen / Unknown Venipuncture / Unknown 08/15/2024 10:19 AM CDT 08/15/2024 10:19 AM CDT Narrative [facility] - 08/15/2024 11:01 AM CDT Cortisol reference [...] mcg/dL Kenya Agarwal MD LAB BLOOD ORDERABLES Final Resu lt Performing Organization Address [facility] Co de Phone Number [facility] [address] [facility], [facility] [address] [place] [address] after 02/26/2024 Insurance MEDICARE PART A AND B MEDICAID [...] 10:42 PM 12/15/2022 9:30 PM Care Teams Erp Business Analyst Relationship Specialty Start Date End Date Bina Obando MD [address] [place] [phone] [email or web address] PCP - External Referring Otolaryngology 11/12/22 Kenya Agarwal MD [address] [place] [phone] [email or web address] PCP - General Head and Neck Surgery 11/12/22 Trent Irving MD [address] [place], [place] [address] [facility] 11/26/22 Randall Sheriff MD [address] [place] [phone] [facility] 11/26/22 Vignesh Waddell MD [address] [place] [id number] [email or web address] Pulmonary Medicine 11/26/22 Naa Miller MD [address] [address] Cardiology 11/26/22 Tapan Harper MD [address] [place], [place] [address] [email or web address] [email or web address] 11/26/22 Rafael Rosas MD [address] [place] [address] Ophthalmology 11/26/22 Suzanne Mcgrath MD [address] [place] [address] [email or web address] Consulting Physician Ophthalmology 12/29/22 Winter Luu MD [address] [place] [phone] [email or web address] Consulting Physician Radiation Oncology 11/26/22 Vaibhav Rosario MD [address] [place] [phone] [email or web address] Consulting Physician Medical Oncology 11/26/22 Rogerio Kramer MD [address] [place] [address] [email or web address] Consulting Physician Pain Management 01/20/23 Rosana Harkins MD [address] [place] [address] [email or web address] Consulting Physician Hematology and Oncology 03/31/23 No Andrade MD [address] [place] [id number] [email or web address] Consulting Physician Endocrinology 09/01/23
[2025-02-25 16:17] LABS: Absolute Basophils 0.1 K/uL (0-0.5); Absolute Eosinophils 0.2 K/uL (0-0.5); Absolute Lymphocytes (CBC) 2.1 K/uL (0.7-4.9); Absolute Monocytes 0.6 K/uL (0.1-1.3); Basophils % 0.7 % (0-1.3); Eosinophils % 2.6 % (0-4.4); Hematocrit 46.8 % (36.0-45.0); Lymphocytes % 26.7 % (15.3-44.8); MCH 31.2 pg (27.0-35.0); MCHC 34.1 g/dL (32.0-36.0); MCV 91.5 fL (80-100); MPV 8.2 fL (7.6-11.3); Monocytes % 7.7 % (3.3-12.3); Neutrophils % 62.3 % (41.7-73.7); Nucleated Red Blood Cells % 0.1 % (0-0); Platelets 207 thou/uL (152-406); RBC Red Blood Cell Count 5.12 M/uL (3.86-4.86); Red Cell Distribution Width 13.6 % (12.1-15.2)
[2025-02-25 16:23] LABS: PT Prothrombin Time 12.4 SECONDS (10-13.0); Protime INR 1.09
[2025-02-25 16:43] LABS: Influenza A Ag Negative; Influenza B Ag Negative; SARS-CoV-2 Antigen Rapid Res Negative (Negative)
[2025-02-25 16:59] LABS: ALT/SGPT 46 U/L (13-56); AST/SGOT 18 U/L (15-37); Albumin 3.9 g/dL (3.4-5.0); Alkaline Phosphatase 166 U/L (45-117); Anion Gap 10.9 mEq/L (5.0-15.0); BUN Blood Urea Nitrogen 16 mg/dL (7-18); Bicarbonate 26 mEq/L (21-32); Bilirubin Total 0.3 mg/dL (0.2-1.0); Glomerular Filtration Rate 72 ml/min (=/>90); Glucose Level 233 mg/dL (74-106); Lipase 25 U/L (13-75); Magnesium 1.6 mg/dL (1.6-2.4); NT PRO-BNP 113 pg/mL (<125); Potassium 3.9 mEq/L (3.5-5.1); Protein, Total 7.9 g/dL (6.4-8.2); Sodium Level 137 mEq/L (136-145); Troponin High Sensitivity 3.2 pg/mL (<58.9)
[2025-02-25 17:03] LABS: Bilirubin Direct < 0.2 mg/dL (0-0.2); Bilirubin Indirect, Calculated 0.1 mg/dL (0.2-0.8)
--- NOTE | 2025-02-25 17:09 | RAD REPORT ---
EXAMINATION: ONE VIEW CHEST XR CLINICAL INDICATION: DYSPNEA TECHNIQUE: Frontal chest projection is submitted. Examination is limited by patient positioning and t echnique. COMPARISON: 01/28/2025 FINDINGS: Mild interstitial prominence is seen, nonspecific and similar to prior study. The heart is upper limi t of normal in size. No displaced fractures identified. IMPRESSION: Mild CHF may be considered.
[2025-02-25] MEDS ORDERED: NITROFURAN MACRO 100 MG CAP PO ONE (17:44)
--- NOTE | 2025-02-25 17:57 | EDPHYS ---
Physician Documentation [facility] Name: Maria De Jesus Acosta Age: 59 yrs Sex: Female : 1965 Arrival Date: 02/25/2025 Time: 14:49 Bed 27 Private MD: ED Physician Dominguez Voss HPI: 02/25 17:48 This 59 yrs old Female presents to ER via Wheelchair with complaints of ebenezer Shortness Of Breath. 17:48 The patient has shortness of breath at rest, with light activity. Onset: The ebenezer symptoms/episode began/occurred 3 day(s) ago. Duration: The symptoms are continuous, and are steadily getting worse. The patient's shortness of breath is aggravated by coughing, light activity, talking. Associated signs and symptoms: Pertinent positives: non-productive cough. Severity of symptoms: At their worst the symptoms were moderate today, in the emergency department the symptoms are unchanged. The patient has experienced similar episodes in the past, multiple times. Historical: - Allergies: 14:59 Amoxicillin; me1 14:59 Doxycycline; me1 14:59 kiwi; me1 14:59 metoclopramide HCl; me1 14:59 orange juice; me1 14:59 Reglan; me1 - PMHx: 14:59 Asthma; CHF; COPD; Crohn's; Diabetes - NIDDM; Hypertension; Nasal cancer; me1 - PSHx: 14:59 Appendectomy; Cholecystectomy; Gastric Bypass; Ligation of fallopian tube; partial me1 hysterectomy; Shoulder; - Immunization history:: Adult Immunizations up to date. - Infectious Disease History:: Denies. - Social history:: Smoking status: Patient/guardian denies using tobacco, but has a distant history of tobacco abuse. ROS: 17:49 Constitutional: Negative for fever, chills, and weight loss, Eyes: Negative for injury, ebenezer pain, redness, and discharge, ENT: Negative for injury, pain, and discharge, Neck: Negative for injury, pain, and swelling, Abdomen/GI: Negative for abdominal pain, nausea, vomiting, diarrhea, and constipation, Back: Negative for injury and pain, : Negative for injury, bleeding, discharge, and swelling, MS/Extremity: Negative for injury and deformity, Skin: Negative for injury, rash, and discoloration, Neuro: Negative for headache, weakness, numbness, tingling, and seizure, Psych: Negative for depression, anxiety, suicide ideation, homicidal ideation, and hallucinations, Allergy/Immunology: Negative for hives, rash, and allergies, Endocrine: Negative for neck swelling, polydipsia, polyuria, polyphagia, and marked weight changes, Hematologic/Lymphatic: Negative for swollen nodes, abnormal bleeding, and unusual bruising, 17:49 Cardiovascular: Positive for palpitations, 17:49 Respiratory: Positive for cough, shortness of breath, wheezing, inspiratory, expiratory, 17:49 Respiratory: Positive for Exam: 17:49 Constitutional: This is a well developed, well nourished patient who is awake, alert, ebenezer and in no acute distress. Head/Face: Normocephalic, atraumatic. Eyes: Pupils equal round and reactive to light, extra-ocular motions intact. Lids and lashes normal. Conjunctiva and sclera are non-icteric and not injected. Cornea within normal limits. Periorbital areas with no swelling, redness, or edema. ENT: Nares patent. No nasal discharge, no septal abnormalities noted. Tympanic membranes are normal and external auditory canals are clear. Oropharynx with no redness, swelling, or masses, exudates, or evidence of obstruction, uvula midline. Mucous membranes moist. Neck: Trachea midline, no thyromegaly or masses palpated, and no cervical lymphadenopathy. Supple, full range of motion without nuchal rigidity, or vertebral point tenderness. No Meningismus. Chest/axilla: Normal chest wall appearance and motion. Nontender with no deformity. No lesions are appreciated. Abdomen/GI: Soft, non-tender, with normal bowel sounds. No distension or tympany. No guarding or rebound. No evidence of tenderness throughout. Back: No spinal tenderness. No costovertebral tenderness. Full range of motion. Female : Normal external genitalia. Skin: Warm, dry with normal turgor. Normal color with no rashes, no lesions, and no evidence of cellulitis. MS/ Extremity: Pulses equal, no cyanosis. Neurovascular intact. Full, normal range of motion., bilateral aka Neuro: Awake and alert, GCS 15, oriented to person, place, time, and situation. Cranial nerves II-XII grossly intact. Motor strength 5/5 in all extremities. Sensory grossly intact. Cerebellar exam normal. Normal gait. Psych: Awake, alert, with orientation to person, place and time. Behavior, mood, and affect are within normal limits. 17:49 Cardiovascular: Rate: tachycardic, actual rate is 104 bpm, Rhythm: regular, Pulses: Pulses are 4+ in bilateral radial, brachial, femoral, popliteal, posterior tibial and and dorsalis pedis arteries.. Heart sounds: normal, normal S1and S2, no S3 or S4, no murmur, no rub, no gallop, Edema: is not appreciated, JVD: is not appreciated, 17:49 ECG was reviewed by the Attending Physician. 18:23 ECG was reviewed by the Attending Physician. [facility] Vital Signs: 14:57 BP 139 / 95; Pulse 104; Resp 20; Temp 98.4; Pulse Ox 98% ; Weight 109.77 kg; Height 5 me1 ft. 3 in. ; Pain 8/10; 18:52 BP 129 / 87; Pulse 83; Resp 18; Pulse Ox 99% on R/A; ld1 19:00 BP 146 / 73; Pulse 84; Resp 20; Pulse Ox 100% ; me1 20:00 BP 140 / 88; Pulse 88; Resp 12; Pulse Ox 98% ; me1 21:26 BP 148 / 86; Pulse 85; Resp 21; Pulse Ox 94% on 2 lpm NC; me1 14:57 Body Mass Index 42.87 (109.77 kg, 160.02 cm) me1 14:57 Pain Scale: Adult md1 21:26 o2 sat decreased to 89% on room air when patient sleeps. States she wears o2 at home. [facility] [place] Applied o2 at 2lpm via nc. MDM: 14:54 Medical Screening Exam initiated [facility] 17:52 Differential diagnosis: Anemia Anxiety Reaction asthma, Bronchitis CHF exacerbation, ebenezer Chronic Obstructive Pulmonary Disease obstructed airway, tracheal injury, bronchitis, Myocardial Infarction pneumonia, Pneumothorax Psychogenic pulmonary edema, Pulmonary Embolism reactive airway disease, Sepsis. Antibiotic administration: Rocephin and Zithromax given. Differential Diagnosis: Obstructed Airway Bronchitis Influenza Upper Respiratory Infection Sinusitis Pharyngitis Asthma Exacerbation Viral Syndrome Pneumonia Tracheal Injury. Immunization status: Influenza vaccine: Data reviewed: vital signs, nurses notes, lab test result(s), EKG, radiologic studies, plain films. Consideration of Admission/Observation Patient was admitted/placed on observation. Escalation of care including admission/observation considered. I considered the following discharge prescriptions or medication management in the emergency department Medications were administered in the Emergency Department. See MAR. Independent interpretation of the following test(s) in the Emergency Department EKG: See my EKG interpretation above. Test considered but Not performed: CT: no ct chest. Historians other than the Patient: pt well informed. Care significantly affected by the following chronic conditions: Diabetes, Chronic Obstructive Pulmonary Disease, Obesity, Cancer, asthma , crohns. 02/25 14:55 Order name: Basic Metabolic Panel; Complete Time: 17:45 [facility] 02/25 14:55 Order name: CBC with Diff; Complete Time: 17:45 [facility] 02/25 14:55 Order name: LFT's; Complete Time: 17:45 [facility] 02/25 14:55 Order name: Magnesium; Complete Time: 17:45 [facility] 02/25 14:55 Order name: NT PRO-BNP; Complete Time: 17:45 [facility] 02/25 14:55 Order name: PT-INR; Complete Time: 17:45 [facility] 02/25 14:55 Order name: Troponin HS; Complete Time: 17:45 [facility] 02/25 14:55 Order name: Blood Culture Adult (2) 02/25 14:55 Order name: Lactate w/ 2H reflex if indic.; Complete Time: 17:45 [facility] 02/25 14:55 Order name: COVID-19 Ag + Flu A+B Ag; Complete Time: 17:45 [facility] 02/25 14:55 Order name: Urinalysis w/ reflexes 02/25 14:55 Order name: Lipase; Complete Time: 17:45 [facility] 02/25 16:50 Order name: Ghost Lactate-NO COLLECT Timer; Complete Time: 19:34 [facility] 02/25 19:17 Order name: CBC with Automated Diff [facility] 02/25 19:17 Order name: CBC with Automated Diff [facility] 02/25 19:17 Order name: Comprehensive Metabolic Panel [facility] 02/25 19:17 Order name: Comprehensive Metabolic Panel [facility] 02/25 19:17 Order name: Protime (+INR) [facility] 02/25 19:17 Order name: Protime (+INR) [facility] 02/25 19:17 Order name: PTT, Activated Partial Thromb [facility] 02/25 19:17 Order name: PTT, Activated Partial Thromb [facility] 02/25 19:17 Order name: Troponin High Sensitivity [facility] 02/25 19:17 Order name: Troponin High Sensitivity [facility] 02/25 19:17 Order name: Troponin High Sensitivity [facility] 02/25 19:17 Order name: Troponin High Sensitivity [facility] 02/25 19:19 Order name: CBC with Automated Diff [facility] 02/25 19:19 Order name: Lactate w/ 2H reflex if indic. [facility] 02/25 19:19 Order name: Magnesium [facility] 02/25 19:19 Order name: NT PRO-BNP [facility] 02/25 19:19 Order name: Procalcitonin [facility] 02/25 21:23 Order name: Lactate Sepsis 2 HR Follow-up [facility] 02/25 22:08 Order name: Glucose, Ancillary Testing [facility] 02/26 07:18 Order name: CBC Smear Scan [facility] 02/26 07:57 Order name: Glucose, Ancillary Testing [facility] 02/26 08:35 Order name: Ghost Lactate-NO COLLECT Timer [facility] 02/26 12:07 Order name: Glucose, Ancillary Testing [facility] 02/25 14:55 Order name: XRAY Chest (1 view); Complete Time: 17:45 [facility] 02/25 19:30 Order name: Hand Left 2 View [facility] 02/25 19:30 Order name: Hip in OR Right 2 View [facility] 02/25 20:43 Order name: RAD [facility] 02/25 14:55 Order name: EKG; Complete Time: 14:55 [facility] 02/25 19:17 Order name: CONS Physician Consult [facility] 02/25 14:55 Order name: Cardiac monitoring; Complete Time: 18:39 [facility] 02/25 14:55 Order name: EKG - Nurse/Tech; Complete Time: 16:31 [facility] 02/25 14:55 Order name: IV Saline Lock; Complete Time: 16:10 [facility] 02/25 14:55 Order name: Labs collected and sent; Complete Time: 16:10 [facility] 02/25 14:55 Order name: O2 Per Protocol; Complete Time: 18:39 [facility] 02/25 14:55 Order name: O2 Sat Monitoring; Complete Time: 18:39 [facility] EC:23 Rate is 95 beats/min. Rhythm is regular. QRS [place] is Normal. [place] interval is normal. QRS ebenezer interval is normal. QT interval is normal. No Q waves. T waves are Normal. No ST changes noted. Clinical impression: NSR w/ Non-specific ST/T Changes and No evidence of ischemia. Interpreted by me. Reviewed by me. Administered Medications: 16:47 CANCELLED (Duplicate Order): ns 0.9% 500 ml 500 ml IV at 1 bolus once; to be given as a ebenezer bolus over 30 minutes 17:48 CANCELLED (Duplicate Order): ns 0.9% (30 ml/kg) 30 ml/kg IV at bolus once; Sepsis ebenezer Protocol; to be given as a bolus over 90 minutes 18:28 Drug: Rocephin IV 1 grams IV at per protocol once; Given slow IV push per pharmacy ld1 instructions Route: IV; Rate: per protocol; Site: left antecubital; 18:55 Follow up: Response: No adverse reaction; IV Status: Completed infusion ld1 18:28 Drug: Magnesium Sulfate IVPB 2 grams IVPB once over 2 hrs Route: IVPB; Infused Over: 2 ld1 hrs; Site: left antecubital; 18:55 Follow up: Response: No adverse reaction; IV Status: Completed infusion; IV Intake: [id number] 19:29 Follow up: IV Status: Completed infusion me1 18:28 Drug: MethylPrednisoLONE IVP 125 mg IVP once Route: IVP; Site: left antecubital; ld1 18:54 Follow up: Response: No adverse reaction ld1 18:28 Drug: NS 0.9% IV 1000 ml IV at 1000 ml once; to be given as a bolus over 60 minutes ld1 Route: IV; Rate: 1000 ml; Site: left antecubital; 18:54 Follow up: Response: No adverse reaction; IV Status: Completed infusion; IV Intake: ld1 1000ml 18:39 Drug: Zithromax IVPB 500 mg IVPB once over 1 hrs; mix in 250 mL NS Route: IVPB; Infused ld1 Over: 1 hrs; Site: left antecubital; 18:55 Follow up: Response: No adverse reaction; IV Status: Completed infusion; IV Intake: ld1 250ml 20:00 Follow up: Response: No adverse reaction; IV Status: Completed infusion; IV Intake: me1 250ml 18:39 Drug: Levalbuterol Inhalation 3.75 mg Inhalation once Route: Inhalation; ld1 19:29 Follow up: Response: No adverse reaction; Wheezing diminished me1 18:39 Drug: Ipratropium Inhalation Aerosol 0.5 mg Inhalation once Route: Inhalation; ld1 19:29 Follow up: Response: No adverse reaction; Wheezing diminished me1 18:49 Drug: Ondansetron IVP 8 mg IVP once; over 2 minutes Route: IVP; Site: left antecubital; ld1 18:54 Follow up: Response: No adverse reaction ld1 Disposition Summary: 02/25/25 17:56 Hospitalization Ordered Notes: Hospitalization Status: Inpatient Admission ebenezer Provider: Rosalio Smith cha Condition: Fair ebenezer Problem: new ebenezer Symptoms: have improved ebenezer Bed/Room Type: Standard ebenezer Location: Telemetry/MedSurg (Inpatient)(02/26/25 11:54) bd Room Assignment: 411(02/26/25 11:54) bd Diagnosis - COPD/ Chronic obstructive pulmonary disease with (acute) exacerbation ebenezer - Dyspnea ebenezer - Obesity, unspecified ebenezer Forms: - Medication Reconciliation Form ebenezer - SBAR form ebenezer - Leadership Thank You Letter ebenezer Signatures: Dispatcher [employer] EDMS Destiny Marquez Corey, MD MD cha Garcia, Cindy, RN RN Winter Rhoades RN RN ld1 Ashleigh Levi RN RN me1 Corrections: (The following items were deleted from the chart) 16:47 14:55 NS 0.9% IV 500 ml 500 ml IV at 1 bolus once; to be given as a bolus over 30 ebenezer minutes ordered. ebenezer 17:48 16:48 NS 0.9% IV (30 ml/kg) 30 ml/kg IV at bolus once; Sepsis Protocol; to be given as ebenezer a bolus over 90 minutes ordered. ebenezer 23:57 17:56 Telemetry/MedSurg (Inpatient) ebenezer cg 23:57 17:56 ebenezer cg 02/26 11:02 02/25 23:57 [facility] ER HOLD cg bd 02/26 11:02 02/25 23:57 ERHOLD- cg bd 02/26 11:04 11:02 Telemetry/MedSurg (Inpatient) bd bd : 11:02 415 bd bd 11: 11:04 [facility] ER HOLD bd bd 11: 11:04 ERHOLD- bd bd
--- NOTE | 2025-02-25 17:57 | ER ---
Nurse's Notes [facility] Name: Maria De Jesus Acosta Age: 59 yrs Sex: Female : 1965 Arrival Date: 02/25/2025 Time: 14:49 Bed 27 Private MD: Diagnosis: COPD/ Chronic obstructive pulmonary disease with (acute) exacerbation;Dyspnea;Obesity, unspecified Presentation: 02/25 14:57 Chief complaint: Patient states: she fell during a recent hospital stay and continues me1 to have pain to left hand and right hip. Patient is SOB and out of medication that she cant get until Wednesday. Coronavirus screen: Vaccine status: Patient reports receiving the 2nd dose of the covid vaccine. Ebola Screen: No symptoms or risks identified at this time. Initial Sepsis Screen: Does the patient meet any 2 criteria? HR > 90 bpm. Does the patient have a suspected source of infection? No. Patient's initial sepsis screen is negative. Risk Assessment: Do you want to hurt yourself or someone else? Patient reports no desire to harm self or others. Onset of symptoms was January 31, 2025. 14:57 Method Of Arrival: Wheelchair me1 14:57 Acuity: EMERALD 3 me1 Historical: - Allergies: 14:59 Amoxicillin; me1 14:59 Doxycycline; me1 14:59 kiwi; me1 14:59 metoclopramide HCl; me1 14:59 orange juice; me1 14:59 Reglan; me1 - PMHx: 14:59 Asthma; CHF; COPD; Crohn's; Diabetes - NIDDM; Hypertension; Nasal cancer; me1 - PSHx: 14:59 Appendectomy; Cholecystectomy; Gastric Bypass; Ligation of fallopian tube; partial me1 hysterectomy; Shoulder; - Immunization history:: Adult Immunizations up to date. - Infectious Disease History:: Denies. - Social history:: Smoking status: Patient/guardian denies using tobacco, but has a distant history of tobacco abuse. Screenin:52 [facility] ED Fall Risk Assessment (Adult) History of falling in the last 3 months, ld1 including since admission No falls in past 3 months (0 pts) Confusion or Disorientation No (0 pts) Intoxicated or Sedated No (0 pts) Impaired Gait No (0 pts) Mobility Assist Device Used No (0 pt) Altered Elimination No (0 pt) Score/Fall Risk Level 0 - 2 = Low Risk Oriented to surroundings, Hourly rounding (assess needs \T\ fall precautionary measures) done. Abuse screen: Denies threats or abuse. Denies injuries from another. Nutritional screening: No deficits noted. Tuberculosis screening: No symptoms or risk factors identified. Assessment: 18:49 General: Appears in no apparent distress. comfortable, Behavior is calm, cooperative, ld1 appropriate for age. 18:52 Pain: Denies pain. Neuro: Level of Consciousness is awake, alert, obeys commands, ld1 Oriented to person, place, time, situation. Cardiovascular: Capillary refill < 3 seconds Patient's skin is warm and dry. Rhythm is sinus rhythm. Respiratory: Reports shortness of breath at rest on exertion Airway is patent Respiratory effort is even, unlabored, Breath sounds with wheezes bilaterally. the patient has mild shortness of breath. GI: Abdomen is round obese. GI: Reports nausea. : No signs and/or symptoms were reported regarding the genitourinary system. EENT: No signs and/or symptoms were reported regarding the EENT system. Derm: No signs and/or symptoms reported regarding the dermatologic system. Musculoskeletal: No signs and/or symptoms reported regarding the musculoskeletal system. Vital Signs: 14:57 BP 139 / 95; Pulse 104; Resp 20; Temp 98.4; Pulse Ox 98% ; Weight 109.77 kg; Height 5 me1 ft. 3 in. ; Pain 8/10; 18:52 BP 129 / 87; Pulse 83; Resp 18; Pulse Ox 99% on R/A; ld1 19:00 BP 146 / 73; Pulse 84; Resp 20; Pulse Ox 100% ; me1 20:00 BP 140 / 88; Pulse 88; Resp 12; Pulse Ox 98% ; me1 21:26 BP 148 / 86; Pulse 85; Resp 21; Pulse Ox 94% on 2 lpm NC; me1 14:57 Body Mass Index 42.87 (109.77 kg, 160.02 cm) me1 14:57 Pain Scale: Adult me1 21:26 o2 sat decreased to 89% on room air when patient sleeps. States she wears o2 at home. me1 Applied o2 at 2lpm via nc. ED Course: 14:53 Patient arrived in ED. sj2 14:54 Dominguez Voss MD is Attending Physician. ebenezer 14:59 Triage completed. ms1 14:59 Arm band placed on Patient placed in waiting room. me1 16:10 Lipase Sent. cc6 16:10 Lactate w/ 2H reflex if indic. Sent. cc6 16:11 Basic Metabolic Panel Sent. cc6 16:11 CBC with Diff Sent. cc6 16:11 LFT's Sent. cc6 16:11 Magnesium Sent. cc6 16:11 NT PRO-BNP Sent. cc6 16:11 PT-INR Sent. cc6 16:11 Troponin HS Sent. cc6 16:16 XRAY Chest (1 view) In Process Unspecified. EDMS 16:16 COVID-19 Ag + Flu A+B Ag Sent. cc6 16:27 Initial lab(s) drawn, by ms, sent to lab. First set of blood cultures drawn by ms, cc6 Second set of blood cultures drawn by ms. Inserted saline lock: 20 gauge in left antecubital area, using aseptic technique. Blood collected. Flushed with 10 mL NS. 16:31 Lactate w/ 2H reflex if indic. Sent. cc6 16:31 COVID-19 Ag + Flu A+B Ag Sent. cc6 16:31 Blood Culture Adult (2) Sent. cc6 16:33 Basic Metabolic Panel Sent. cc6 16:33 LFT's Sent. cc6 16:33 Magnesium Sent. cc6 16:33 NT PRO-BNP Sent. cc6 16:33 Troponin HS Sent. cc6 17:55 Rosalio Smith MD is Hospitalizing Provider. [facility] 18:49 Winter Rhoades, RN is Primary Nurse. ld1 18:52 Patient has correct armband on for positive identification. Placed in gown. Bed in low ld1 position. Call light in reach. Side rails up X2. monitor and storage bin tender on. Pulse ox on. NIBP on. Door closed. Noise minimized. Warm blanket given. 18:52 No provider procedures requiring assistance completed. ld1 20:04 Primary Nurse role handed off by Winter Rhoades, RN rv1 20:12 Ashleigh Levi, JCARLOS is Primary Nurse. [facility] 20:19 Lactate w/ 2H reflex if indic. [place]. [facility] [place] 21:48 Provided Education on: POC. Verbalized understanding.. [facility] [place] 21:49 Patient admitted, IV remains in place. [facility] [place] 02/26 07:04 Primary Nurse role handed off by Ashleigh Levi RN bd Administered Medications: 02/25 16:47 CANCELLED (Duplicate Order): ns 0.9% 500 ml 500 ml IV at 1 bolus once; to be given as a ebenezer bolus over 30 minutes 17:48 CANCELLED (Duplicate Order): ns 0.9% (30 ml/kg) 30 ml/kg IV at bolus once; Sepsis ebenezer Protocol; to be given as a bolus over 90 minutes 18:28 Drug: Rocephin IV 1 grams IV at per protocol once; Given slow IV push per pharmacy ld1 instructions Route: IV; Rate: per protocol; Site: left antecubital; 18:55 Follow up: Response: No adverse reaction; IV Status: Completed infusion ld1 18:28 Drug: Magnesium Sulfate IVPB 2 grams IVPB once over 2 hrs Route: IVPB; Infused Over: 2 ld1 hrs; Site: left antecubital; 18:55 Follow up: Response: No adverse reaction; IV Status: Completed infusion; IV Intake: [id number] 19:29 Follow up: IV Status: Completed infusion me1 18:28 Drug: MethylPrednisoLONE IVP 125 mg IVP once Route: IVP; Site: left antecubital; ld1 18:54 Follow up: Response: No adverse reaction ld1 18:28 Drug: NS 0.9% IV 1000 ml IV at 1000 ml once; to be given as a bolus over 60 minutes ld1 Route: IV; Rate: 1000 ml; Site: left antecubital; 18:54 Follow up: Response: No adverse reaction; IV Status: Completed infusion; IV Intake: ld1 1000ml 18:39 Drug: Zithromax IVPB 500 mg IVPB once over 1 hrs; mix in 250 mL NS Route: IVPB; Infused ld1 Over: 1 hrs; Site: left antecubital; 18:55 Follow up: Response: No adverse reaction; IV Status: Completed infusion; IV Intake: ld1 250ml 20:00 Follow up: Response: No adverse reaction; IV Status: Completed infusion; IV Intake: me1 250ml 18:39 Drug: Levalbuterol Inhalation 3.75 mg Inhalation once Route: Inhalation; ld1 19:29 Follow up: Response: No adverse reaction; Wheezing diminished me1 18:39 Drug: Ipratropium Inhalation Aerosol 0.5 mg Inhalation once Route: Inhalation; ld1 19:29 Follow up: Response: No adverse reaction; Wheezing diminished me1 18:49 Drug: Ondansetron IVP 8 mg IVP once; over 2 minutes Route: IVP; Site: left antecubital; ld1 18:54 Follow up: Response: No adverse reaction ld1 Medication: 18:52 VIS not applicable for this client. ld1 Intake: 18:54 IV: 1000ml; Total: 1000ml. ld1 18:55 IV: 250ml; Total: 1250ml. ld1 18:55 IV: 50ml; Total: 1300ml. ld1 20:00 IV: 250ml; Total: 1550ml. me1 Outcome: 17:56 Decision to Hospitalize by Provider. [facility] 21:49 Admitted to ER Hold. Please see [facility] for further documentation. ms1 21:49 Condition: stable 21:49 Instructed on the need for admit, 02/26 13:30 Patient left the ED. cm10 Signatures: Dispatcher [employer] EDDestiny Londono Corey, MD MD cha Sims, Lauren, RN RN ld1 Kim Jackson1 Susan Pugh RN RN cm10 Ashleigh Levi RN RN me1 Rose Doyle cc6 David Benson
[2025-02-25] MEDS ORDERED: METHYLPREDNISOLONE 125 MG INJ ONE (18:13)
[2025-02-25] MEDS ORDERED: CEFTRIAXONE 1000 MG/VIAL ONE (18:13)
[2025-02-25] MEDS ORDERED: AZITHROMYCIN 500 MG INJ IVPB ONE (18:13)
[2025-02-25] MEDS ORDERED: IPRATROPIUM BROM 0.5MG/2.5ML ONE (18:13)
[2025-02-25] MEDS ORDERED: LEVALBUTEROL 1.25 MG/3 ML NEB ONE (18:13)
[2025-02-25] MEDS ORDERED: Magnesium Sulfate 2gm IVPB 2 G/50 ML BAG IV ONE (18:14)
[2025-02-25] MEDS ORDERED: NA CHLORIDE 0.9% 250 ML ONE (18:14)
[2025-02-25] MEDS ORDERED: NA CHLORIDE 0.9% 1,000 ML ONE ×2 (18:14→21:46)
[2025-02-25] MEDS ORDERED: ONDANSETRON 4 MG/2 ML VIAL ONE (18:36)
--- NOTE | 2025-02-25 19:23 | P.HP ---
Certification for Inpatient Patient admitted to: Observation With expected LOS: <2 Midnights Patient will require the following post-hospital care: None Practitioner: I am a practitioner with admitting privileges, knowledge of patient current condition, hospital course, and medical plan of care. Services: Services provided to patient in accordance with Admission requirements found in Title 42 Section 412.3 of the Code of Federal Regulations Patient History Date of Service: 02/25/25 Reason for admission: Status post fall with History of Present Illness: Patient is a 59-year-old female with history of COPD who was in the hospital recently with a COPD exacerbation. Patient states she fell during that hospital stay and landed on her left hand and right hip. She still having some pain in that area as she recently ran out of medications so she came into the emergency room with complaints of shortness of breath. In the ER her workup was fairly u nremarkable. Her O2 sats are 98% on room air. Her chest x-ray does show some questionable interstitial opacities and her lactic acid was elevated. Other than that her labs are fairly unremarkable. Patient's main complaints are her pain to her hand and her hip. Overall, she is clinically doing well we will get physical therapy evaluation after the imaging studies are completed. Will treat her for her acute COPD exacerbation with nebs and steroids and anticipate discharge in a.m. At this time she will be admitted to the hospital for observation. Allergies doxycycline Allergy (Mild, Verified 06/13/24 09:11) Nausea/Vomiting orange juice [[place] Juice] Allergy (Mild, Verified 06/13/24 09:11) Nausea/Vomiting kiwi Allergy (Verified 06/13/24 09:11) Anaphylaxis metoclopramide HCl [From Reglan] Allergy (Verified 06/13/24 09:11) Unknown Home Medications: ALPRAZolam [Xanax*] 2 mg PO TID 10/04/19 Albuterol Sulfate [Proair Hfa] 1 puff IH Q4HP PRN 10/04/19 Atorvastatin Calcium [Lipitor] 40 mg PO BEDTIME 10/04/19 Colchicine [Colcrys *] 0.6 mg PO DAILY PRN 10/04/19 Gabapentin 600 mg PO TID 10/04/19 Hydrocodone 5/APAP 325 [[place] 5/325*] 1 tab PO Q6H PRN 10/04/19 Pantoprazole [Protonix Tab*] 40 mg PO DAILY 10/04/19 Zolpidem Tartrate [Ambien*] 10 mg PO BEDTIME 10/04/19 Dicyclomine [Bentyl*] 10 mg PO Q8H 09/03/22 Prucalopride Succinate [Motegrity] 2 mg PO BID 09/03/22 cloNIDine HCL [Catapres*] 0.1 mg PO TID #90 tab 09/05/22 Amlodipine [Norvasc*] 5 mg PO DAILY 03/27/24 Hydralazine [Apresoline*] 100 mg PO TID 03/27/24 Metoprolol Succinate [Toprol Xl*] 100 mg PO BID 03/27/24 Nitroglycerin 0.4 mg SL Q5MX3, Q15MX1, Q30M PRN 03/27/24 hydroCHLOROthiazide [Hydrochlorothiazide] 12.5 mg PO DAILY 03/27/24 lisinopriL [Lisinopril] 40 mg PO DAILY 03/27/24 Albuterol Neb [Proventil 0.083% Neb Soln] 2.5 mg NEB Q6HP PRN 30 Days #1 box 03/29/24 Ipratropium Neb [Atrovent*] 0.5 mg NEB [id number] PRN 30 Days #1 box 03/29/24 Nebulizer and Compressor [[place] Choice Nebulizer] 1 each MC DAILY PRN #1 ea 03/29/24 Insulin Lispro [Humalog*] See Protocol SQ AC 06/09/24 Amox/Clavulanate [Augmentin 875-125 Tab*] 875 mg PO BID 7 Days #14 tab 01/30/25 Arformoterol Tartrate [Brovana] 15 mcg NEB BIDRESP 30 Days #1 vial.neb 01/30/25 Benzonatate [Tessalon Perle*] 100 mg PO TID PRN 5 Days #15 cap 01/30/25 Fluticasone/Umeclidin/Vilanter [Trelegy Ellipta 100-62.5-25] 1 puff IH DAILY 30 Days #1 inh 01/30/25 predniSONE [Prednisone*] 20 mg PO BID 7 Days #14 tab 01/30/25 predniSONE [Prednisone] 10 mg PO DAILY 3 Days #3 tab 01/30/25 - Past Medical/Surgical History Diabetic: Yes -: Crohn's disease -: CHF -: HTN -: COPD -: Asthma -: CVA -: DM- Insulin Dependent -: TIA -: sleep apnea -: Gastroparesis -: Appendectomy -: Cholecystectomy -: -: Tubal Ligation -: Lap. 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 - Family History Mother Medical History: Heart disease, Hypertension, Diabetes, Stroke, Cancer Father Medical History: Diabetes, Blood disorders, Kidney disease Notes: leukemia - Social History Smoking Status: Former smoker Alcohol use: No CD- Drugs: No Caffeine use: Yes Review of Systems 10-point ROS is otherwise unremarkable Physical Examination - Vital Signs Temperature: 98 F Blood Pressure: 140/80 Pulse: 80 Respirations: 16 Pulse Ox (%): 98 - Physical Exam General: Alert, In no apparent distress, Oriented x3 HEENT: Atraumatic, PERRLA, Mucous membr. moist/pink, EOMI, Sclerae nonicteric Neck: Supple, 2+ carotid pulse no bruit, No LAD, Without JVD or thyroid abnormality Respiratory: Expiratory wheezes Cardiovascular: Regular rate/rhythm, Normal S1 S2 Gastrointestinal: Normal bowel sounds, Soft and benign, Non-distended, No tenderness Musculoskeletal: No clubbing, No swelling, Tenderness Integumentary: No rashes, No breakdown, No significant lesion Neurological: Normal gait, Normal speech, Normal strength at 5/5 x4 extr, Normal tone, Sensation intact, Cranial nerves 3-12 intact, Normal affect Lymphatics: No axilla or inguinal lymphadenopathy - Studies Laboratory Data (last 24 hrs) 02/25/25 02/25/25 02/25/25 16:06 16:06 16:06 WBC 7.90 Hgb 16.0 H Hct 46.8 H Plt Count 207 PT 12.4 INR 1.09 Sodium 137 Potassium 3.9 BUN 16 Creatinine 0.93 Glucose 233 H Magnesium 1.6 Total Bilirubin 0.3 AST 18 ALT 46 Alkaline Phosphatase 166 H Lipase 25 Assessment & Plan - Problems (Diagnosis) (1) COPD with acute exacerbation Current Visit: Yes Status: Acute (2) Status post fall Current Visit: Yes Status: Acute (3) Congestive heart failure Current Visit: No Status: Chronic Qualifiers: Heart failure type: diastolic Heart failure chronicity: chronic Qualified Code(s): I50.32 - Chronic diastolic (congestive) heart failure (4) Crohn's disease Current Visit: No Status: Chronic Qualifiers: Gastrointestinal tract location: unspecified location Digestive disease complication type: without complication Qualified Code(s): K50.90 - Crohn's disease, unspecified, without complications (5) Diabetes mellitus Current Visit: No Status: Chronic Qualifiers: Diabetes mellitus type: type 2 Diabetes mellitus 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 Diabetes mellitus complication status: with hyperglycemia Qualified Code(s): E11.65 - Type 2 diabetes mellitus with hyperglycemia; 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 (6) GERD (gastroesophageal reflux disease) Current Visit: No Status: Chronic Qualifiers: Esophagitis presence: without esophagitis Qualified Code(s): K21.9 - Gastro-esophageal reflux disease without esophagitis (7) HTN (hypertension) Current Visit: No Status: Chronic Qualifiers: Hypertension type: primary hypertension Qualified Code(s): I10 - Essential (primary) hypertension (8) Hyperlipidemia Current Visit: No Status: Chronic Qualifiers: Hyperlipidemia type: mixed hyperlipidemia Qualified Code(s): E78.2 - Mixed hyperlipidemia (9) Morbid obesity Current Visit: No Status: Chronic - Plan Plan: 1. Patient with acute shortness of breath most likely secondary to COPD exacerbation. At this time, we will continue with nebs and steroids. Patient is afebrile and no white blood cell count. Will check a procalcitonin level. Lactic acid is barely elevated so we will start up with an antibiotic but if the procalcitonin is negative we should be able to discontinue. Patient may just be dehydrated as she has not been eating or drinking much because of her pain. Will consult pulmonary for their recommendations as well. 2. Hip and wrist pain; patient states she fell in January 31. This happened while in the hospital. Imaging studies are pending. However she has pretty good range of motion and will probably just need supportive care 3. Metabolic syndrome; patient with morbid obesity along with hypertension and diabetes. Will go ahead and continue with strict blood pressure and blood sugar control 4. History of heart failure with preserved ejection fraction; continue with mild diuretics monitor renal function 5. History of CVA; continue with antiplatelet therapy and statin therapy 6. History of Crohn's disease; outpatient GI follow-up. Currently not taking any immune suppressants. She will need to be further evaluated with endoscopy and biopsy results. 7. GI and DVT prophylaxis Discharge Plan: Home Plan to discharge in: 24 Hours - Advance Directives Does patient have a Living Will: No Does patient have a Durable POA for Healthcare: No - Code Status/Comfort Care Code Status Assessed: Yes Code Status: Full Code Critical Care: No Time Spent Managing PTS Care (In Minutes): 40
[2025-02-25 19:47] VITALS: BMI 42.8
[2025-02-25 20:00] LABS: Specific Gravity 1.018 (1.005-1.030); Urine Bilirubin NEGATIVE (Negative); Urine Blood Negative (Negative); Urine Clarity Clear (Clear); Urine Color Light-Yellow (Yellow); Urine Glucose 2+ (Negative); Urine Ketones NEGATIVE (Negative); Urine Microscopic Reflex YN NO UMIC; Urine Nitrite NEGATIVE (Negative); Urine Protein NEGATIVE (Negative); Urine Urobilinogen Normal (Normal); Urine pH 5.5 (5.0-7.0)
[2025-02-25] MEDS: NA CHLORIDE 0.9% 1,000 ML IV SCH (20:00)
--- NOTE | 2025-02-25 20:42 | RAD REPORT ---
EXAMINATION: XR RIGHT HIP CLINICAL INDICATION: . pain TECHNIQUE: Multiple views of the right hip were obtained. COMPARISON: No prior exam. FINDINGS: Mild osteoarthritis of the right hip. No fracture, dislocation or AVN.
--- NOTE | 2025-02-25 20:42 | RAD REPORT ---
EXAM: XR LEFT HAND HISTORY: Pain. pain COMPARISON: None TECHNIQUE: Multiple projections of the left hand submitted. FINDINGS: Diffuse osteopenia.. Mild soft tissue swelling is present along the dorsum of the wrist. No acute fracture or dislocation seen.
[2025-02-26] MEDS: METHYLPREDNISOLONE 40 MG INJ IV SCH
[2025-02-26] MEDS ORDERED: IPRATROPIUM BROM 0.5MG/2.5ML ONE (00:56)
[2025-02-26] MEDS ORDERED: ALBUTEROL 2.5 MG/3 ML NEB SOL ONE (00:56)
[2025-02-26] MEDS ORDERED: ONDANSETRON 4 MG/2 ML VIAL ONE ×2 (00:57→04:56)
[2025-02-26] MEDS ORDERED: MORPHINE 2 MG/ML SYR ONE ×2 (00:57→04:56)
[2025-02-26] MEDS ORDERED: METHYLPREDNISOLONE 40 MG INJ ONE ×2 (00:57→04:57)
[2025-02-26] MEDS: ONDANSETRON 4 MG/2 ML VIAL IV PRN (01:00)
[2025-02-26] MEDS: MORPHINE 2 MG/ML SYR IV PRN (01:00)
[2025-02-26 06:00] LABS: Absolute Lymphocytes (CBC) 0.8 K/uL (0.7-4.9); Absolute Neutrophil 7.8 K/uL (1.8-8.0); Basophils % 0.1 % (0-1.3); Hematocrit 42.6 % (36.0-45.0); Hemoglobin 14.4 g/dL (12.0-15.0); Lymphocytes % 8.9 % (15.3-44.8); MCH 31.7 pg (27.0-35.0); MCHC 33.9 g/dL (32.0-36.0); MCV 93.6 fL (80-100); Monocytes % 0.4 % (3.3-12.3); Neutrophils % 90.6 % (41.7-73.7); Platelets 205 thou/uL (152-406); RBC Red Blood Cell Count 4.55 M/uL (3.86-4.86); Red Cell Distribution Width 13.6 % (12.1-15.2)
[2025-02-26] MEDS: PANTOPRAZOLE 40MG TABLET PO SCH (06:00)
[2025-02-26 06:06] LABS: PT Prothrombin Time 12.3 SECONDS (10-13.0); PTT, Activated Partial Thromb 31.8 SECONDS (27.2-37.4); Protime INR 1.08
[2025-02-26 06:19] LABS: Albumin 3.5 g/dL (3.4-5.0); Albumin/Globulin Ratio 0.9 (1.1-1.8); Anion Gap 15.1 mEq/L (5.0-15.0); Bilirubin Total 0.4 mg/dL (0.2-1.0); Globulin 3.9 g/dL (2.3-3.5); Magnesium 1.8 mg/dL (1.6-2.4); Potassium 4.1 mEq/L (3.5-5.1); Protein, Total 7.4 g/dL (6.4-8.2); Troponin High Sensitivity 5.1 pg/mL (<58.9)
[2025-02-26] MEDS: ALBUTEROL 2.5 MG/3 ML NEB SOL NEB SCH (07:00)
[2025-02-26] MEDS: ARFORMOTEROL TARTRATE 15 MCG/2 ML VIAL.NEB NEB SCH (07:00)
[2025-02-26] MEDS: IPRATROPIUM BROM 0.5MG/2.5ML NEB SCH (07:00)
[2025-02-26 07:17] LABS: Blood Morphology Comment NOT SEEN (NOT SEEN); Platelet Estimate ADEQ; White Blood Cell Scan OK (OK)
[2025-02-26] MEDS ORDERED: PANTOPRAZOLE 40 MG INJ ONE (07:53)
[2025-02-26] MEDS ORDERED: METOPROLOL XL 50 MG TAB PO ONE (07:53)
[2025-02-26] MEDS ORDERED: ALPRAZOLAM 0.5 MG TABLET ONE (07:54)
[2025-02-26] MEDS: METOPROLOL XL 50 MG TAB PO SCH (07:57)
[2025-02-26] MEDS: ALPRAZOLAM 0.5 MG TABLET PO PRN (07:58)
[2025-02-26] MEDS: INSULIN REGULAR (HUMAN) 100 UNIT/ML SQ SCH (09:04)
[2025-02-26] MEDS: INSULIN GLARGINE 100 UNIT/ML SQ SCH (09:05)
[2025-02-26] MEDS ORDERED: INSULIN GLARGINE 100 UNIT/ML SQ ONE (09:20)
[2025-02-26] MEDS ORDERED: INSULIN REGULAR (HUMAN) 100 UNIT/ML ONE ×2 (09:21→11:58)
--- NOTE | 2025-02-26 12:09 | EKG ---
Test Date: 2025-02-25 Test Time: 16:27:35 Foster Care Therapist: JEN MEASUREMENT RESULTS: Intervals: Rate: 95 MO: 154 QRSD: 72 QT: 354 QTc: 444 [place]: P: 49 MO: 154 QRS: 26 T: 21 INTERPRETIVE STATEMENTS: Normal sinus rhythm Cannot rule out Anterior infarct, age undetermined Abnormal ECG Compared to ECG 01/28/2025 06:38:46 Sinus bradycardia no longer present Myocardial infarct finding still present Electronically Signed On 02-26-25 12:07:12 CDT by Abiodun Augustin
[2025-02-26] MEDS: NA CHLORIDE 0.9% 500 ML IV ONE (15:52)
--- NOTE | 2025-02-26 15:59 | P.PN ---
Subjective Date of Service: 02/26/25 Chief Complaint: Status post fall with Subjective: No chest pain. c/o shortness of breath. No nausea or vomiting. No abdominal pain. No obvious bleeding. Looks comfortable in the bed. Objective: General appearance: Alert and comfortable CVS: Normal S1 and S2 Lungs: Clear to auscultation bilaterally Abdomen: Soft, bowel sounds present, no tenderness Extremities: No lower extremity edema Physical Examination - Vital Signs Temperature: 98.5 F Blood Pressure: 163/90 Pulse: 90 Respirations: 18 Pulse Ox (%): 98 - Studies Laboratory Data (last 24 hrs) 02/26/25 02/26/25 02/26/25 06:00 05:30 05:30 WBC Cancelled Hgb Cancelled Hct Cancelled Plt Count Cancelled PT INR APTT Sodium 137 Potassium 4.1 BUN 13 Creatinine 1.08 H Glucose 365 H Magnesium 1.8 Total Bilirubin 0.4 AST 14 L ALT 40 Alkaline Phosphatase 149 H Lipase 02/26/25 02/26/25 02/25/25 05:30 05:30 16:06 WBC 8.60 Hgb 14.4 D Hct 42.6 Plt Count 205 PT 12.3 12.4 INR 1.08 1.09 APTT 31.8 Sodium Potassium BUN Creatinine Glucose Magnesium Total Bilirubin AST ALT Alkaline Phosphatase Lipase 02/25/25 02/25/25 16:06 16:06 WBC 7.90 Hgb 16.0 H Hct 46.8 H Plt Count 207 PT INR APTT Sodium 137 Potassium 3.9 BUN 16 Creatinine 0.93 Glucose 233 H Magnesium 1.6 Total Bilirubin 0.3 AST 18 ALT 46 Alkaline Phosphatase 166 H Lipase 25 Assessment And Plan - Plan 1. COPD exacerbation. continue with nebs and steroids. start aBX - Lactic acid is elevated probably from inhaler treatment, and hyperglycemia. Continue maintenance IV fluids, will give a small fluid bolus, monitor lactate closely. 2. Hip and wrist pain; x-rays negative. 3. morbid obesity: Consider weight loss, follow-up with PCP. 4. History of heart failure with preserved ejection fraction: Monitor volume status closely. 5. History of CVA; continue with antiplatelet therapy and statin therapy 6. History of Crohn's disease; outpatient GI follow-up. Currently not taking any immune suppressants. She will need to be further evaluated with endoscopy and biopsy results. 7. Diabetes with hyperglycemia: Secondary to steroids, started insulin, monitor sugars closely. 8. hypertension: Continue home medications. Plan discussed with patient and nursing staff.
[2025-02-26] MEDS: CEFTRIAXONE 1,000 MG in NA CHLORIDE 0.9% 50 ML IVPB SCH (16:44)
[2025-02-26] MEDS: ARFORMOTEROL TARTRATE 15 MCG/2 ML VIAL.NEB ONE (19:44)
[2025-02-26] MEDS: ALBUTEROL 2.5 MG/3 ML NEB SOL ONE (19:44)
[2025-02-26] MEDS: IPRATROPIUM BROM 0.5MG/2.5ML ONE (19:44)
[2025-02-26] MEDS: ATORVASTATIN 20 MG TAB PO SCH (19:45)
[2025-02-26] MEDS: INSULIN REGULAR (HUMAN) 100 UNIT/ML SQ ONE (21:40)
[2025-02-26] MEDS: HYDRALAZINE HCL 20 MG/ML VIAL IV PRN (23:38)
[2025-02-27] MEDS: TEMAZEPAM 15 MG CAP PO ONE ×2 (01:01→22:56)
[2025-02-27 07:41] LABS: Absolute Basophils 0.1 K/uL (0-0.5); Absolute Lymphocytes (CBC) 1.1 K/uL (0.7-4.9); Absolute Monocytes 0.4 K/uL (0.1-1.3); Absolute Neutrophil 16.9 K/uL (1.8-8.0); Basophils % 0.4 % (0-1.3); Hematocrit 43.1 % (36.0-45.0); Hemoglobin 14.7 g/dL (12.0-15.0); Lymphocytes % 6.2 % (15.3-44.8); MCH 31.6 pg (27.0-35.0); MCHC 34.1 g/dL (32.0-36.0); MCV 92.7 fL (80-100); MPV 9.1 fL (7.6-11.3); Monocytes % 2.3 % (3.3-12.3); Neutrophils % 91.1 % (41.7-73.7); Platelets 219 thou/uL (152-406); RBC Red Blood Cell Count 4.65 M/uL (3.86-4.86); Red Cell Distribution Width 13.7 % (12.1-15.2)
[2025-02-27 08:11] LABS: Anion Gap 8.8 mEq/L (5.0-15.0); Potassium 4.8 mEq/L (3.5-5.1); Troponin High Sensitivity 5.8 pg/mL (<58.9)
[2025-02-27] MEDS: INSULIN GLARGINE 100 UNIT/ML SQ SCH (08:55)
[2025-02-27] MEDS ORDERED: GLUCAGON 1 MG/VIAL IM PRN (11:24)
[2025-02-27] MEDS ORDERED: D10W 125 ML IV PRN (11:24)
--- NOTE | 2025-02-27 11:29 | ECHO ---
HEIGHT: 5 ft 3 in WEIGHT: 242 lb 0.023 oz DATE OF STUDY: 02/27/[address]: Rosalio Smith MD 2-DIMENSIONAL: YES M.MODE: YES DOPPLER: YES COLOR FLOW: YES TDS: PORTABLE: YES DEFINITY: BUBBLE STUDY: DIAGNOSIS: CONGESTIVE HEART FAILURE CARDIAC HISTORY: CATHERIZATION: NO SURGERY: NO PROSTHETIC VALVE: NO PACEMAKER: NO MEASUREMENTS (cm) DIASTOLIC (NORMALS) SYSTOLIC (NORMALS) IVSd 1.1 (0.6-1.2) LA Diam 2.8 (1.9-4.0) LVEF 60-65% LVIDd 3.5 (3.5-5.7) LVIDs 1.9 (2.0-3.5) %FS 45% LVPWd 1.3 (0.6-1.2) Ao Diam 2.7 (2.0-3.7) 2 DIMENSIONAL ASSESSMENT: RIGHT ATRIUM: NORMAL LEFT ATRIUM: NORMAL RIGHT VENTRICLE: NORMAL LEFT VENTRICLE: NORMAL TRICUSPID VALVE: TRACE TRICUSPID REGURGITATION MITRAL VALVE: NORMAL PULMONIC VALVE: NORMAL AORTIC VALVE: NORMAL PERICARDIAL EFFUSION: NONE AORTIC ROOT: NORMAL LEFT VENTRICULAR WALL MOTION: NORMAL DOPPLER/COLOR FLOW: NORMAL COMMENTS: 1. NORMAL LEFT VENTRICULAR SYSTOLIC FUNCTION, EJECTION FRACTION 60-65%, NORMAL WALL MOTION 2. NORMAL DIASTOLIC FUNCTION TECHNOLOGIST: KESHAWN HUMPHREY
[2025-02-27] MEDS: INSULIN REGULAR (HUMAN) 100 UNIT/ML SQ SCH ×4 (11:30→20:11)
--- NOTE | 2025-02-27 12:28 | P.CNS ---
Date of Consult: 02/27/25 Reason for Consult: Cough congestion Chief Complaint: Cough congestion shortness of breath History of Present Illness: Patient is 59 years ahead he has history of COPD sleep apnea admitted with worsening dyspnea productive cough for the past 3 days she has been using her Trelegy ran out of her nebulizers complaining of chills and. In the hospital overall she has been worse for about 2 weeks she was recently here and was discharged Allergies doxycycline Allergy (Mild, Verified 06/13/24 09:11) Nausea/Vomiting orange juice [[place] Juice] Allergy (Mild, Verified 06/13/24 09:11) Nausea/Vomiting kiwi Allergy (Verified 06/13/24 09:11) Anaphylaxis metoclopramide HCl [From Reglan] Allergy (Verified 06/13/24 09:11) Unknown Home Medications: ALPRAZolam [Xanax*] 2 mg PO TID 10/04/19 Albuterol Sulfate [Proair Hfa] 1 puff IH Q4HP PRN 10/04/19 Atorvastatin Calcium [Lipitor] 40 mg PO BEDTIME 10/04/19 Colchicine [Colcrys *] 0.6 mg PO DAILY PRN 10/04/19 Gabapentin 600 mg PO TID 10/04/19 Hydrocodone 5/APAP 325 [[place] 5/325*] 1 tab PO Q6H PRN 10/04/19 Pantoprazole [Protonix Tab*] 40 mg PO DAILY 10/04/19 Zolpidem Tartrate [Ambien*] 10 mg PO BEDTIME 10/04/19 Dicyclomine [Bentyl*] 10 mg PO Q8H 09/03/22 Prucalopride Succinate [Motegrity] 2 mg PO BID 09/03/22 cloNIDine HCL [Catapres*] 0.1 mg PO TID #90 tab 09/05/22 Amlodipine [Norvasc*] 5 mg PO DAILY 03/27/24 Metoprolol Succinate [Toprol Xl*] 100 mg PO BID 03/27/24 Nitroglycerin 0.4 mg SL Q5MX3, Q15MX1, Q30M PRN 03/27/24 hydroCHLOROthiazide [Hydrochlorothiazide] 12.5 mg PO DAILY 03/27/24 lisinopriL [Lisinopril] 40 mg PO BEDTIME 03/27/24 Albuterol Neb [Proventil 0.083% Neb Soln] 2.5 mg NEB Q6HP PRN 30 Days #1 box 03/29/24 Ipratropium Neb [Atrovent*] 0.5 mg NEB [id number] PRN 30 Days #1 box 03/29/24 Nebulizer and Compressor [[place] Choice Nebulizer] 1 each MC DAILY PRN #1 ea 03/29/24 Insulin Lispro [Humalog*] See Protocol SQ AC 06/09/24 Arformoterol Tartrate [Brovana] 15 mcg NEB BIDRESP 30 Days #1 vial.neb 01/30/25 Benzonatate [Tessalon Perle*] 100 mg PO TID PRN 5 Days #15 cap 01/30/25 Fluticasone/Umeclidin/Vilanter [Trelegy Ellipta 100-62.5-25] 1 puff IH DAILY 30 Days #1 inh 01/30/25 Allopurinol 300 mg PO DAILY 02/26/25 Mesalamine [Apriso] 0.375 mg PO QID 02/26/25 Prochlorperazine [Compazine*] 10 mg PO QID 02/26/25 - Past Medical/Surgical History Diabetic: Yes -: Crohn's disease -: CHF -: HTN -: COPD -: Asthma -: CVA -: DM- Insulin Dependent -: TIA -: sleep apnea -: Gastroparesis -: Appendectomy -: Cholecystectomy -: -: Tubal Ligation -: Lap. 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 - Family History Mother Medical History: Heart disease, Hypertension, Diabetes, Stroke, Cancer Father Medical History: Diabetes, Blood disorders, Kidney disease Notes: leukemia - Social History Smoking Status: Unknown if ever smoked Alcohol use: No CD- Drugs: No Caffeine use: Yes Review of Systems 10-point ROS is otherwise unremarkable General: Weakness Respiratory: Cough, Shortness of Breath Physical Examination Temp Pulse Resp BP Pulse Ox 97.9 F 77 18 158/82 H 97 02/27/25 12:00 02/27/25 12:00 02/27/25 12:00 02/27/25 12:00 02/27/25 12:00 General: Alert, Oriented x3 Neck: Supple Respiratory: Clear to auscultation bilaterally, Diminished Cardiovascular: No edema, Regular rate/rhythm, Normal S1 S2 Gastrointestinal: Normal bowel sounds, Soft and benign - Problems (1) COPD exacerbation Onset Date: 11/03/16 Current Visit: No Status: Acute Plan: Patient is 59 years of age morbidly obese sleep apnea admitted with worsening dyspnea cough congestion last night patient is not compliant with the Trelegy ran out of her nebulizer patient's chest x-ray is clear blood cultures are negative white count was normal on admission no evidence of active sepsis changed to p.o. prednisone and Augmentin blood pressure is mildly elevated BNP is normal echocardiogram shows normal left ventricular function add spironolactone
[2025-02-27] MEDS: SPIRONOLACTONE 25 MG TABLET PO SCH (12:50)
--- NOTE | 2025-02-27 14:58 | P.PN ---
Subjective Date of Service: 02/27/25 Chief Complaint: Cough congestion shortness of breath Subjective: No chest pain. shortness of breath improving. No nausea or vomiting. c/o some abdominal pain but this is somewhat chornic. No obvious bleeding. Looks comfortable in the bed. Objective: General appearance: Alert and comfortable CVS: Normal S1 and S2 Lungs: Clear to auscultation bilaterally Abdomen: Soft, bowel sounds present, no tenderness Extremities: No lower extremity edema Physical Examination - Vital Signs Temperature: 97.9 F Blood Pressure: 158/82 Pulse: 7 Respirations: 18 Pulse Ox (%): 97 Assessment And Plan - Plan 1. COPD exacerbation. continue with nebs and steroids. start aBX - Lactic acid is elevated probably from inhaler treatment, and hyperglycemia. Continue maintenance IV fluids, LA improving, monitor lactate closely. - Pulmonary is following, appreciate recommendations. 2. Hip and wrist pain; x-rays negative. 3. morbid obesity: Consider weight loss, follow-up with PCP. 4. History of heart failure with preserved ejection fraction: Monitor volume status closely. Echo showed normal EF, 60 to 65%. 5. History of CVA; continue with antiplatelet therapy and statin therapy 6. History of Crohn's disease; outpatient GI follow-up. Currently not taking any immune suppressants. She will need to be further evaluated with endoscopy and biopsy results. Chronic issues with abdominal pain. 7. Diabetes with hyperglycemia: Secondary to steroids, started insulin, monitor sugars closely. Change Solu-Medrol to prednisone. 8. hypertension: Continue home medications. Plan discussed with patient and nursing staff.
[2025-02-27] MEDS: ACETAMINOPHEN 500 MG TAB PO PRN (16:50)
[2025-02-27] MEDS: AMOX/K CLAV 875 MG TAB PO SCH (20:11)
[2025-02-27] MEDS: predniSONE 20 MG TAB PO SCH (20:11)
[2025-02-28 04:38] VITALS: O2SAT 95
[2025-02-28 06:04] LABS: Absolute Basophils 0.2 K/uL (0-0.5); Absolute Lymphocytes (CBC) 2.1 K/uL (0.7-4.9); Absolute Monocytes 1.1 K/uL (0.1-1.3); Absolute Neutrophil 14.8 K/uL (1.8-8.0); Basophils % 0.9 % (0-1.3); Eosinophils % 0.1 % (0-4.4); Hematocrit 43.8 % (36.0-45.0); Hemoglobin 14.9 g/dL (12.0-15.0); Lymphocytes % 11.4 % (15.3-44.8); MCH 31.6 pg (27.0-35.0); MCHC 33.9 g/dL (32.0-36.0); MCV 93.3 fL (80-100); MPV 8.6 fL (7.6-11.3); Monocytes % 6.1 % (3.3-12.3); Neutrophils % 81.5 % (41.7-73.7); Platelets 233 thou/uL (152-406); Red Cell Distribution Width 13.8 % (12.1-15.2)
[2025-02-28 06:19] LABS: Anion Gap 7.6 mEq/L (5.0-15.0); Potassium 4.6 mEq/L (3.5-5.1); Troponin High Sensitivity 5.8 pg/mL (<58.9)
[2025-02-28] MEDS: AMLODIPINE 5 MG TAB PO SCH (09:32)
[2025-02-28 12:14] VITALS: BP 155/89; TEMP 97.7
--- NOTE | 2025-02-28 12:43 | P.DS ---
Admission Date: 02/26/25 Discharge Date: 02/28/25 Disposition: DC HOME/HOME HEALTH CARE Discharge Condition: GOOD Reason for Admission: Cough congestion shortness of breath Hospital Course: 1. COPD exacerbation. given nebs, steroids and antibiotics - Lactic acid is elevated probably from inhaler treatment, and hyperglycemia. given maintenance IV fluids, LA improving - Pulmonary is following, appreciate recommendations. 2. Hip and wrist pain; x-rays negative. 3. morbid obesity: Consider weight loss, follow-up with PCP. 4. History of heart failure with preserved ejection fraction: Monitor volume status closely. Echo showed normal EF, 60 to 65%. 5. History of CVA; continue with antiplatelet therapy and statin therapy 6. History of Crohn's disease; outpatient GI follow-up. continue home meds, She will need to be further evaluated with endoscopy and biopsy results. Chronic issues with nausea and abdominal pain. 7. Diabetes with hyperglycemia: Secondary to steroids, cont home meds, steroids weaned off at discharge 8. hypertension: Continue home medications. Plan discussed with patient and nursing staff. DC home. Hospital course: 59-year-old patient admitted with COPD exacerbation, she was started on steroids, nebs and antibiotics, pulmonary was following, she is slowly improving, she has oxygen at home, blood sugars were running high from steroids, steroids decreased, sugars are improving, she had elevated lactic acid which could be from hyperglycemia and nebulizer treatment, she was given IV fluids, lactic acid is improving, when I see the patient today she is doing well without any acute problems and feels ready to go home, pulmonary is okay to discharge her as well, otherwise no other acute issues going on so I am planning to discharge her to go home, follow-up with PCP and pulmonary. Subjective: No chest pain. shortness of breath improving. c/o nausea and some abdominal pain but this is somewhat chornic. No obvious bleeding. Looks comfortable in the bed. Objective: General appearance: Alert and comfortable CVS: Normal S1 and S2 Lungs: Clear to auscultation bilaterally Abdomen: Soft, bowel sounds present, no tenderness Extremities: No lower extremity edema Vital Signs/Physical Exam: Temp Pulse Resp BP Pulse Ox 97.7 F 69 18 155/89 H 97 02/28/25 12:00 02/28/25 12:00 02/28/25 12:00 02/28/25 12:02/28/25 12:00 Laboratory Data at Discharge: WBC 18.10 thou/uL (4.3-10.9) H 02/28/25 05:50 Hgb 14.9 g/dL (12.0-15.0) 02/28/25 05:50 Hct 43.8 % (36.0-45.0) 02/28/25 05:50 Plt Count 233 thou/uL (152-406) 02/28/25 05:50 PT 12.3 SECONDS (10-13.0) 02/26/25 05:30 INR 1.08 02/26/25 05:30 APTT 31.8 SECONDS (27.2-37.4) 02/26/25 05:30 Sodium 137 mEq/L (136-145) 02/28/25 05:50 Potassium 4.6 mEq/L (3.5-5.1) 02/28/25 05:50 BUN 17 mg/dL (7-18) 02/28/25 05:50 Creatinine 0.88 mg/dL (0.55-1.02) 02/28/25 05:50 Glucose 254 mg/dL (74-106) H 02/28/25 05:50 Magnesium 1.8 mg/dL (1.6-2.4) 02/26/25 05:30 Total Bilirubin 0.4 mg/dL (0.2-1.0) 02/26/25 05:30 AST 14 U/L (15-37) L 02/26/25 05:30 ALT 40 U/L (13-56) 02/26/25 05:30 Alkaline Phosphatase 149 U/L (45-117) H 02/26/25 05:30 Lipase 25 U/L (13-75) 02/25/25 16:06 Home Medications: ALPRAZolam [Xanax*] 2 mg PO TID 10/04/19 Albuterol Sulfate [Proair Hfa] 1 puff IH Q4HP PRN 10/04/19 Atorvastatin Calcium [Lipitor] 40 mg PO BEDTIME 10/04/19 Colchicine [Colcrys *] 0.6 mg PO DAILY PRN 10/04/19 Gabapentin 600 mg PO TID 10/04/19 Hydrocodone 5/APAP 325 [[place] 5/325*] 1 tab PO Q6H PRN 10/04/19 Pantoprazole [Protonix Tab*] 40 mg PO DAILY 10/04/19 Zolpidem Tartrate [Ambien*] 10 mg PO BEDTIME 10/04/19 Dicyclomine [Bentyl*] 10 mg PO Q8H 09/03/22 Prucalopride Succinate [Motegrity] 2 mg PO BID 09/03/22 cloNIDine HCL [Catapres*] 0.1 mg PO TID #90 tab 09/05/22 Amlodipine [Norvasc*] 5 mg PO DAILY 03/27/24 Metoprolol Succinate [Toprol Xl*] 100 mg PO BID 03/27/24 Nitroglycerin 0.4 mg SL Q5MX3, Q15MX1, Q30M PRN 03/27/24 hydroCHLOROthiazide [Hydrochlorothiazide] 12.5 mg PO DAILY 03/27/24 lisinopriL [Lisinopril] 40 mg PO BEDTIME 03/27/24 Albuterol Neb [Proventil 0.083% Neb Soln] 2.5 mg NEB Q6HP PRN 30 Days #1 box 03/29/24 Ipratropium Neb [Atrovent*] 0.5 mg NEB [id number] PRN 30 Days #1 box 03/29/24 Nebulizer and Compressor [[place] Choice Nebulizer] 1 each MC DAILY PRN #1 ea 03/29/24 Insulin Lispro [Humalog*] See Protocol SQ AC 06/09/24 Arformoterol Tartrate [Brovana] 15 mcg NEB BIDRESP 30 Days #1 vial.neb 01/30/25 Benzonatate [Tessalon Perle*] 100 mg PO TID PRN 5 Days #15 cap 01/30/25 Fluticasone/Umeclidin/Vilanter [Trelegy Ellipta 100-62.5-25] 1 puff IH DAILY 30 Days #1 inh 01/30/25 Allopurinol 300 mg PO DAILY 02/26/25 Mesalamine [Apriso] 0.375 mg PO QID 02/26/25 Prochlorperazine [Compazine*] 10 mg PO QID 02/26/25 Amox/Clavulanate [Augmentin 875-125 Tab*] 875 mg PO BID #6 tab 02/28/25 predniSONE [Prednisone*] 20 mg PO DAILY #5 tab 02/28/25 New Medications: Amox/Clavulanate [Augmentin 875-125 Tab*] 875 mg PO BID #6 tab predniSONE [Prednisone*] 20 mg PO DAILY #5 tab Diet: ADA Activity: Ad teri Followup: Vignesh Waddell MD [ACTIVE - CAN ADMIT] - (f/u in 1-2 wees) Maria Fernanda MCMAHAN,Trent Johnston DO [Primary Care Provider] - 1 Week (f/u with PCP in 5-7 days with CBC and CMP) Zacarias Kaur MD [ACTIVE - CAN ADMIT] - 1-2 Weeks (f/u with GI clinc in 1-2 weeks ) Time spent managing pt's care (in minutes): 32
[2025-02-28] MEDS ORDERED: METOPROLOL XL 100 MG TAB PO SCH (18:00)
== END 2025-02-28 14:20 | disposition home or self-care (01) | DRG 191 ==
LOC: ER 14:49 → ERHOLD 19:10 → OBSVTOIN 02-26 09:04 → 4TH 02-26 12:20
PROVIDERS: ADMIT Hospitalist; ATTEND Hospitalist
DX: J44.1 Chronic obstructive pulmonary disease with (acute) exacerbation (principal); I50.32 Chronic diastolic (congestive) heart failure; Z68.41 Body mass index [BMI] 40.0-44.9, adult; K50.90 Crohn's disease, unspecified, without complications; E66.01 Morbid (severe) obesity due to excess calories; I11.0 Hypertensive heart disease with heart failure; E78.2 Mixed hyperlipidemia; E88.810 Metabolic syndrome; E11.65 Type 2 diabetes mellitus with hyperglycemia; K21.9 Gastro-esophageal reflux disease without esophagitis; Z88.1 Allergy status to other antibiotic agents; Z98.84 Bariatric surgery status; Z11.52 Encounter for screening for COVID-19; Z90.49 Acquired absence of other specified parts of digestive tract; Z87.891 Personal history of nicotine dependence; Z91.018 Allergy to other foods; Z79.52 Long term (current) use of systemic steroids; Z79.899 Other long term (current) drug therapy; Z86.73 Personal history of transient ischemic attack (TIA), and cerebral infarction without residual deficits; Z91.148 Patient's other noncompliance with medication regimen for other reason
CPT/HCPCS: 36415; 71045; 80048; 80053; 80076; 81003; 82947; 83605; 83690; 83735; 83880; 84145; 84484; 85025; 85610; 85730; 87040; 87428; 93005; 93306; 94640; 96365; 96367; 96368; 96375; 99285; G0378; J0360; J0696; J1815; J2270; J2405; J2470; J2919; J3475; J7030; J7050; J7512; J7605; J7613; J7614; J7644